=== PATIENT | male | born 1945 | race Caucasian/White ===

== ENCOUNTER 2022-07-17 10:15 | Outpatient (REF) | payer MEDICARE, SELFPAY ==
[2022-07-17 11:55] LABS: Basophils Percent Auto 0.4 % (0.2-2.0); Eosinophils Absolute Auto 0.3 10^3/uL (0.0-0.7); Hematocrit 34.6 % (42.0-54.0); Hemoglobin 11.6 g/dL (14.0-18.0); Immature Granulocytes Abs Auto 0.03 10^3/uL (0.00-0.03); Immature Granulocytes Pct Auto 0.4 % (0.0-0.5); Lymphocytes Absolute Auto 1.6 10^3/uL (1.2-3.8); Lymphocytes Percent Auto 23.3 % (20.5-60.0); Mean Corpuscular HGB Conc 33.5 g/dL (29.9-35.2); Mean Corpuscular Hemoglobin 30.6 pg (25.9-34.0); Mean Corpuscular Volume 91.3 fL (80.0-94.0); Monocytes Absolute Auto 0.7 10^3/uL (0.3-0.8); Monocytes Percent Auto 10.9 % (1.7-12.0); Neutrophils Absolute Auto 4.1 10^3/uL (1.4-6.5); Platelet Count 175 10^3/uL (150-450); Red Blood Count 3.79 10^6/uL (4.70-6.10); Red Cell Distribution Width 13.5 % (11.0-15.0); White Blood Count 6.7 10^3/uL (4.0-11.0)
[2022-07-17 12:26] LABS: Alanine Aminotransferase 14 U/L (16-63); Albumin Globulin Ratio 0.8; Albumin Level 2.6 g/dL (3.4-5.0); Alkaline Phosphatase 64 U/L (46-116); Anion Gap 10.9; Aspartate Amino Transferase 16 U/L (15-37); Bilirubin Total 0.4 mg/dL (0.2-1.0); Calcium 8.3 mg/dL (8.5-10.1); Chloride 102 mmol/L (98-107); Estimated GFR (African America 54 (>=60); Estimated GFR (Non-African Ame 44 (>=60); Globulin 3.2 g/dL; Glucose 273 mg/dL (74-106); Magnesium 1.7 mg/dL (1.8-2.4); Phosphorus 4.2 mg/dL (2.6-4.7); Potassium 3.9 mmol/L (3.5-5.1); Sodium 138 mmol/L (136-145); Total Protein 5.8 g/dL (6.4-8.2)
[2022-07-17 12:58] LABS: INR 3.82; Prothrombin Time 37.5 sec (9.0-11.6)
[2022-07-20 15:08] LABS: Tacrolimus (FK506), Blood 6.7 ng/mL (2.0-20.0)
== END 2022-07-17 10:16 ==
LOC: LAB 10:15
PROVIDERS: PCP Internal Medicine; Visit Provider Internal Medicine
DX: S88.011D Complete traumatic amputation at knee level, right lower leg, subsequent encounter (principal); M86.171 Other acute osteomyelitis, right ankle and foot; A49.02 Methicillin resistant Staphylococcus aureus infection, unspecified site; R13.12 Dysphagia, oropharyngeal phase; R29.3 Abnormal posture; I25.10 Atherosclerotic heart disease of native coronary artery without angina pectoris; E44.0 Moderate protein-calorie malnutrition; E11.3553 Type 2 diabetes mellitus with stable proliferative diabetic retinopathy, bilateral; M62.81 Muscle weakness (generalized); S88 Traumatic amputation of lower leg; C44.622 Squamous cell carcinoma of skin of right upper limb, including shoulder; E78.5 Hyperlipidemia, unspecified; Z94.0 Kidney transplant status; N18.6 End stage renal disease; I73.9 Peripheral vascular disease, unspecified; I48.0 Paroxysmal atrial fibrillation; D64.9 Anemia, unspecified; E66.9 Obesity, unspecified; N40.0 Benign prostatic hyperplasia without lower urinary tract symptoms; Z95.0 Presence of cardiac pacemaker; Z86.718 Personal history of other venous thrombosis and embolism; E11.22 Type 2 diabetes mellitus with diabetic chronic kidney disease; I12.0 Hypertensive chronic kidney disease with stage 5 chronic kidney disease or end stage renal disease
CPT/HCPCS: 36415; 80053; 80197; 83735; 84100; 85025; 85610

== ENCOUNTER 2022-07-20 18:11 | Outpatient (RCR) | payer MEDICARE, OTHER, SELFPAY | END 2022-08-14 23:59 | disposition home or self-care (01) | LOC: MM 18:11 | PROVIDERS: PCP Internal Medicine; Visit Provider Internal Medicine | DX: Z51.81 Encounter for therapeutic drug level monitoring (principal); Z79.01 Long term (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 of anticoagulants; I48.91 Unspecified atrial fibrillation ==

== ENCOUNTER 2022-07-24 00:50 | Outpatient (REF) | payer MEDICARE, OTHER, SELFPAY ==
[2022-07-24 08:42] LABS: Basophils Percent Auto 0.6 % (0.2-2.0); Eosinophils Absolute Auto 0.3 10^3/uL (0.0-0.7); Eosinophils Percent Auto 4.5 % (0.9-7.0); Immature Granulocytes Abs Auto 0.02 10^3/uL (0.00-0.03); Immature Granulocytes Pct Auto 0.3 % (0.0-0.5); Lymphocytes Absolute Auto 2.5 10^3/uL (1.2-3.8); Mean Corpuscular HGB Conc 34.3 g/dL (29.9-35.2); Mean Corpuscular Volume 90.4 fL (80.0-94.0); Mean Platelet Volume 10.5 fL (9.5-13.5); Monocytes Absolute Auto 0.8 10^3/uL (0.3-0.8); Monocytes Percent Auto 11.5 % (1.7-12.0); Neutrophils Percent Auto 45.1 % (43.0-75.0); Platelet Count 197 10^3/uL (150-450); Red Blood Count 3.87 10^6/uL (4.70-6.10); Red Cell Distribution Width 13.4 % (11.0-15.0); White Blood Count 6.6 10^3/uL (4.0-11.0)
[2022-07-24 09:42] LABS: Partial Thromboplastin Time 38.5 sec (22.3-36.2)
[2022-07-24 15:54] LABS: INR 3.26; Prothrombin Time 32.3 sec (9.0-11.6)
[2022-07-27 19:06] LABS: Tacrolimus (FK506), Blood 8.7 ng/mL (2.0-20.0)
== END 2022-07-24 00:51 ==
LOC: LAB 00:50
PROVIDERS: PCP Internal Medicine; Visit Provider Internal Medicine
DX: Z94.0 Kidney transplant status (principal); N18.6 End stage renal disease
CPT/HCPCS: 36415; 80197; 85025; 85610; 85730

== ENCOUNTER 2022-07-31 07:12 | Outpatient (REF) | payer MEDICARE, OTHER, SELFPAY ==
[2022-07-31 08:54] LABS: Basophils Percent Auto 0.5 % (0.2-2.0); Eosinophils Absolute Auto 0.3 10^3/uL (0.0-0.7); Eosinophils Percent Auto 4.7 % (0.9-7.0); Hematocrit 33.8 % (42.0-54.0); Hemoglobin 11.2 g/dL (14.0-18.0); Immature Granulocytes Abs Auto 0.03 10^3/uL (0.00-0.03); Immature Granulocytes Pct Auto 0.5 % (0.0-0.5); Lymphocytes Absolute Auto 1.8 10^3/uL (1.2-3.8); Lymphocytes Percent Auto 30.4 % (20.5-60.0); Mean Corpuscular HGB Conc 33.1 g/dL (29.9-35.2); Mean Corpuscular Hemoglobin 30.7 pg (25.9-34.0); Mean Corpuscular Volume 92.6 fL (80.0-94.0); Mean Platelet Volume 10.3 fL (9.5-13.5); Monocytes Absolute Auto 0.7 10^3/uL (0.3-0.8); Monocytes Percent Auto 11.8 % (1.7-12.0); Neutrophils Absolute Auto 3.1 10^3/uL (1.4-6.5); Neutrophils Percent Auto 52.1 % (43.0-75.0); Platelet Count 189 10^3/uL (150-450); Red Blood Count 3.65 10^6/uL (4.70-6.10); Red Cell Distribution Width 13.4 % (11.0-15.0)
[2022-07-31 09:47] LABS: Alanine Aminotransferase 13 U/L (16-63); Albumin Globulin Ratio 0.8; Albumin Level 2.5 g/dL (3.4-5.0); Alkaline Phosphatase 61 U/L (46-116); Anion Gap 10.4; Aspartate Amino Transferase 24 U/L (15-37); BUN Creatinine Ratio 33.1; Bilirubin Total 0.5 mg/dL (0.2-1.0); Calcium 8.3 mg/dL (8.5-10.1); Carbon Dioxide 25.7 mmol/L (21.0-32.0); Chloride 104 mmol/L (98-107); Estimated GFR (African America >60 (>=60); Estimated GFR (Non-African Ame 55 (>=60); Globulin 3.2 g/dL; Glucose 327 mg/dL (74-106); Potassium 4.1 mmol/L (3.5-5.1); Sodium 136 mmol/L (136-145); Total Protein 5.7 g/dL (6.4-8.2)
[2022-08-03 19:07] LABS: Tacrolimus (FK506), Blood 6.5 ng/mL (2.0-20.0)
== END 2022-07-31 07:13 ==
LOC: LAB 07:12
PROVIDERS: PCP Internal Medicine; Visit Provider Internal Medicine
DX: Z94.9 Transplanted organ and tissue status, unspecified (principal)
CPT/HCPCS: 36415; 80053; 80197; 85025; 85610

== ENCOUNTER 2022-08-07 05:17 | Outpatient (REF) | payer MEDICARE, OTHER, SELFPAY ==
[2022-08-07 10:18] LABS: Basophils Percent Auto 0.6 % (0.2-2.0); Eosinophils Absolute Auto 0.3 10^3/uL (0.0-0.7); Hematocrit 34.9 % (42.0-54.0); Hemoglobin 11.6 g/dL (14.0-18.0); Immature Granulocytes Abs Auto 0.03 10^3/uL (0.00-0.03); Immature Granulocytes Pct Auto 0.5 % (0.0-0.5); Lymphocytes Absolute Auto 2.2 10^3/uL (1.2-3.8); Lymphocytes Percent Auto 34.1 % (20.5-60.0); Mean Corpuscular HGB Conc 33.2 g/dL (29.9-35.2); Mean Corpuscular Hemoglobin 30.9 pg (25.9-34.0); Mean Corpuscular Volume 93.1 fL (80.0-94.0); Monocytes Absolute Auto 0.8 10^3/uL (0.3-0.8); Monocytes Percent Auto 12.5 % (1.7-12.0); Neutrophils Absolute Auto 3.1 10^3/uL (1.4-6.5); Neutrophils Percent Auto 48.3 % (43.0-75.0); Platelet Count 190 10^3/uL (150-450); Red Blood Count 3.75 10^6/uL (4.70-6.10); Red Cell Distribution Width 13.7 % (11.0-15.0); White Blood Count 6.5 10^3/uL (4.0-11.0)
[2022-08-07 10:27] LABS: INR 2.05; Prothrombin Time 20.9 sec (9.0-11.6)
[2022-08-07 12:20] LABS: Alanine Aminotransferase 15 U/L (16-63); Albumin Globulin Ratio 0.8; Albumin Level 2.6 g/dL (3.4-5.0); Alkaline Phosphatase 58 U/L (46-116); Anion Gap 9.6; Aspartate Amino Transferase 19 U/L (15-37); BUN Creatinine Ratio 32.7; Bilirubin Total 0.5 mg/dL (0.2-1.0); Calcium 8.2 mg/dL (8.5-10.1); Carbon Dioxide 30.3 mmol/L (21.0-32.0); Chloride 105 mmol/L (98-107); Estimated GFR (African America 55 (>=60); Estimated GFR (Non-African Ame 45 (>=60); Globulin 3.2 g/dL; Glucose 139 mg/dL (74-106); Magnesium 1.9 mg/dL (1.8-2.4); Phosphorus 4.6 mg/dL (2.6-4.7); Potassium 3.9 mmol/L (3.5-5.1); Sodium 141 mmol/L (136-145); Total Protein 5.8 g/dL (6.4-8.2)
[2022-08-09 15:07] LABS: Tacrolimus (FK506), Blood 13.4 ng/mL (2.0-20.0)
== END 2022-08-07 05:18 | disposition home or self-care (01) ==
LOC: LAB 05:17
PROVIDERS: PCP Internal Medicine; Visit Provider Internal Medicine
DX: I48.91 Unspecified atrial fibrillation (principal); Z94.9 Transplanted organ and tissue status, unspecified
CPT/HCPCS: 36415; 80053; 80197; 83735; 84100; 85025; 85610

== ENCOUNTER 2022-08-14 01:42 | Outpatient (REF) | payer MEDICARE, OTHER, SELFPAY ==
[2022-08-14 10:12] LABS: Basophils Absolute Auto 0.1 10^3/uL (0.0-0.1); Basophils Percent Auto 0.8 % (0.2-2.0); Eosinophils Absolute Auto 0.3 10^3/uL (0.0-0.7); Eosinophils Percent Auto 4.5 % (0.9-7.0); Hematocrit 34.8 % (42.0-54.0); Hemoglobin 11.3 g/dL (14.0-18.0); Immature Granulocytes Abs Auto 0.03 10^3/uL (0.00-0.03); Immature Granulocytes Pct Auto 0.5 % (0.0-0.5); Lymphocytes Absolute Auto 2.3 10^3/uL (1.2-3.8); Lymphocytes Percent Auto 36.9 % (20.5-60.0); Mean Corpuscular HGB Conc 32.5 g/dL (29.9-35.2); Mean Corpuscular Hemoglobin 30.7 pg (25.9-34.0); Mean Corpuscular Volume 94.6 fL (80.0-94.0); Mean Platelet Volume 10.3 fL (9.5-13.5); Monocytes Absolute Auto 0.6 10^3/uL (0.3-0.8); Monocytes Percent Auto 10.3 % (1.7-12.0); Neutrophils Absolute Auto 2.9 10^3/uL (1.4-6.5); Platelet Count 187 10^3/uL (150-450); Red Blood Count 3.68 10^6/uL (4.70-6.10); Red Cell Distribution Width 13.6 % (11.0-15.0); White Blood Count 6.2 10^3/uL (4.0-11.0)
[2022-08-14 10:36] LABS: INR 2.24; Prothrombin Time 22.7 sec (9.0-11.6)
[2022-08-14 11:10] LABS: Alanine Aminotransferase 16 U/L (16-63); Albumin Globulin Ratio 0.8; Albumin Level 2.7 g/dL (3.4-5.0); Alkaline Phosphatase 60 U/L (46-116); Anion Gap 10.7; Aspartate Amino Transferase 20 U/L (15-37); BUN Creatinine Ratio 28.7; Bilirubin Total 0.5 mg/dL (0.2-1.0); Calcium 8.3 mg/dL (8.5-10.1); Carbon Dioxide 27.5 mmol/L (21.0-32.0); Chloride 106 mmol/L (98-107); Estimated GFR (African America 49 (>=60); Estimated GFR (Non-African Ame 40 (>=60); Globulin 3.2 g/dL; Glucose 228 mg/dL (74-106); Potassium 4.2 mmol/L (3.5-5.1); Sodium 140 mmol/L (136-145); Total Protein 5.9 g/dL (6.4-8.2)
[2022-08-17 05:06] LABS: Tacrolimus (FK506), Blood 8.2 ng/mL (2.0-20.0)
== END 2022-08-14 01:43 | disposition home or self-care (01) ==
LOC: LAB 01:42
PROVIDERS: PCP Internal Medicine; Visit Provider Internal Medicine
DX: Z94.0 Kidney transplant status (principal)
CPT/HCPCS: 36415; 80053; 80197; 85025; 85610

== ENCOUNTER 2022-08-20 10:18 | Outpatient (RCR) | payer MEDICARE, OTHER, SELFPAY | END 2022-09-14 16:52 | disposition home or self-care (01) | LOC: MM 10:18 | PROVIDERS: PCP Internal Medicine; Visit Provider Internal Medicine | DX: Z51.81 Encounter for therapeutic drug level monitoring (principal); Z79.01 Long term (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 of anticoagulants; I48.91 Unspecified atrial fibrillation ==

== ENCOUNTER 2022-08-21 02:25 | Outpatient (REF) | payer MEDICARE, OTHER, SELFPAY ==
[2022-08-21 10:51] LABS: Basophils Percent Auto 0.7 % (0.2-2.0); Eosinophils Absolute Auto 0.2 10^3/uL (0.0-0.7); Eosinophils Percent Auto 3.2 % (0.9-7.0); Hemoglobin 11.9 g/dL (14.0-18.0); Immature Granulocytes Abs Auto 0.01 10^3/uL (0.00-0.03); Immature Granulocytes Pct Auto 0.2 % (0.0-0.5); Lymphocytes Absolute Auto 1.9 10^3/uL (1.2-3.8); Lymphocytes Percent Auto 31.7 % (20.5-60.0); Mean Corpuscular HGB Conc 33.1 g/dL (29.9-35.2); Mean Corpuscular Hemoglobin 30.7 pg (25.9-34.0); Mean Corpuscular Volume 92.8 fL (80.0-94.0); Mean Platelet Volume 10.1 fL (9.5-13.5); Monocytes Absolute Auto 0.6 10^3/uL (0.3-0.8); Monocytes Percent Auto 9.3 % (1.7-12.0); Neutrophils Absolute Auto 3.3 10^3/uL (1.4-6.5); Neutrophils Percent Auto 54.9 % (43.0-75.0); Platelet Count 184 10^3/uL (150-450); Red Blood Count 3.88 10^6/uL (4.70-6.10); Red Cell Distribution Width 13.4 % (11.0-15.0)
[2022-08-21 11:05] LABS: INR 2.68; Prothrombin Time 26.9 sec (9.0-11.6)
[2022-08-25 00:07] LABS: Tacrolimus (FK506), Blood 13.1 ng/mL (2.0-20.0)
== END 2022-08-21 02:26 | disposition home or self-care (01) ==
LOC: LAB 02:25
PROVIDERS: PCP Internal Medicine; Visit Provider Internal Medicine
DX: Z94.0 Kidney transplant status (principal)
CPT/HCPCS: 36415; 80197; 85025; 85610

== ENCOUNTER 2022-08-28 01:12 | Outpatient (REF) | payer MEDICARE, OTHER, SELFPAY ==
[2022-08-28 09:06] LABS: Basophils Percent Auto 0.5 % (0.2-2.0); Eosinophils Absolute Auto 0.3 10^3/uL (0.0-0.7); Eosinophils Percent Auto 4.1 % (0.9-7.0); Hemoglobin 11.8 g/dL (14.0-18.0); Immature Granulocytes Abs Auto 0.02 10^3/uL (0.00-0.03); Immature Granulocytes Pct Auto 0.3 % (0.0-0.5); Lymphocytes Absolute Auto 2.5 10^3/uL (1.2-3.8); Lymphocytes Percent Auto 37.2 % (20.5-60.0); Mean Corpuscular HGB Conc 32.8 g/dL (29.9-35.2); Mean Corpuscular Hemoglobin 30.4 pg (25.9-34.0); Mean Corpuscular Volume 92.8 fL (80.0-94.0); Mean Platelet Volume 9.9 fL (9.5-13.5); Monocytes Absolute Auto 0.8 10^3/uL (0.3-0.8); Monocytes Percent Auto 12.3 % (1.7-12.0); Neutrophils Percent Auto 45.6 % (43.0-75.0); Platelet Count 187 10^3/uL (150-450); Red Blood Count 3.88 10^6/uL (4.70-6.10); Red Cell Distribution Width 13.8 % (11.0-15.0); White Blood Count 6.6 10^3/uL (4.0-11.0)
[2022-08-28 09:22] LABS: INR 3.19; Prothrombin Time 31.7 sec (9.0-11.6)
[2022-08-28 10:00] LABS: Alanine Aminotransferase 20 U/L (16-63); Albumin Globulin Ratio 0.8; Albumin Level 2.8 g/dL (3.4-5.0); Alkaline Phosphatase 59 U/L (46-116); Anion Gap 7.9; Aspartate Amino Transferase 19 U/L (15-37); BUN Creatinine Ratio 29.7; Bilirubin Total 0.6 mg/dL (0.2-1.0); Calcium 8.6 mg/dL (8.5-10.1); Carbon Dioxide 29.1 mmol/L (21.0-32.0); Chloride 107 mmol/L (98-107); Estimated GFR (African America 57 (>=60); Estimated GFR (Non-African Ame 47 (>=60); Globulin 3.3 g/dL; Glucose 192 mg/dL (74-106); Sodium 140 mmol/L (136-145); Total Protein 6.1 g/dL (6.4-8.2)
[2022-08-31 03:06] LABS: Tacrolimus (FK506), Blood 8.4 ng/mL (2.0-20.0)
== END 2022-08-28 01:13 | disposition home or self-care (01) ==
LOC: LAB 01:12
PROVIDERS: PCP Internal Medicine; Visit Provider Internal Medicine
DX: Z51.81 Encounter for therapeutic drug level monitoring (principal); Z79.01 Long term (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 of anticoagulants
CPT/HCPCS: 36415; 80053; 80197; 85025; 85610

== ENCOUNTER 2022-09-04 04:10 | Outpatient (REF) | payer MEDICARE, OTHER, SELFPAY ==
[2022-09-04 09:00] LABS: Basophils Percent Auto 0.7 % (0.2-2.0); Eosinophils Absolute Auto 0.2 10^3/uL (0.0-0.7); Eosinophils Percent Auto 3.6 % (0.9-7.0); Hematocrit 34.3 % (42.0-54.0); Hemoglobin 11.3 g/dL (14.0-18.0); Immature Granulocytes Abs Auto 0.02 10^3/uL (0.00-0.03); Immature Granulocytes Pct Auto 0.3 % (0.0-0.5); Lymphocytes Absolute Auto 2.2 10^3/uL (1.2-3.8); Mean Corpuscular HGB Conc 32.9 g/dL (29.9-35.2); Mean Corpuscular Hemoglobin 30.3 pg (25.9-34.0); Mean Platelet Volume 10.1 fL (9.5-13.5); Monocytes Absolute Auto 0.7 10^3/uL (0.3-0.8); Monocytes Percent Auto 11.9 % (1.7-12.0); Neutrophils Absolute Auto 2.9 10^3/uL (1.4-6.5); Neutrophils Percent Auto 47.5 % (43.0-75.0); Platelet Count 203 10^3/uL (150-450); Red Blood Count 3.73 10^6/uL (4.70-6.10); Red Cell Distribution Width 13.6 % (11.0-15.0); White Blood Count 6.1 10^3/uL (4.0-11.0)
[2022-09-04 09:14] LABS: INR 2.46; Prothrombin Time 24.8 sec (9.0-11.6)
[2022-09-04 09:17] LABS: Alanine Aminotransferase 18 U/L (16-63); Albumin Globulin Ratio 0.9; Albumin Level 2.9 g/dL (3.4-5.0); Alkaline Phosphatase 62 U/L (46-116); Anion Gap 12.5; Aspartate Amino Transferase 16 U/L (15-37); BUN Creatinine Ratio 40.5; Bilirubin Total 0.6 mg/dL (0.2-1.0); Calcium 8.5 mg/dL (8.5-10.1); Carbon Dioxide 27.6 mmol/L (21.0-32.0); Chloride 105 mmol/L (98-107); Estimated GFR (African America 52 (>=60); Estimated GFR (Non-African Ame 43 (>=60); Globulin 3.3 g/dL; Glucose 284 mg/dL (74-106); Magnesium 2.1 mg/dL (1.8-2.4); Phosphorus 4.9 mg/dL (2.6-4.7); Potassium 4.1 mmol/L (3.5-5.1); Sodium 141 mmol/L (136-145); Total Protein 6.2 g/dL (6.4-8.2)
[2022-09-07 10:19] LABS: Tacrolimus (FK506), Blood 13.5 ng/mL (2.0-20.0)
== END 2022-09-04 04:11 | disposition home or self-care (01) ==
LOC: LAB 04:10
PROVIDERS: PCP Internal Medicine; Visit Provider Internal Medicine
DX: Z51.81 Encounter for therapeutic drug level monitoring (principal); Z79.01 Long term (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 of anticoagulants; Z94.0 Kidney transplant status
CPT/HCPCS: 36415; 80053; 80197; 83735; 84100; 85025; 85610

== ENCOUNTER 2022-09-09 11:37 | Emergency (ER) | payer MEDICARE, OTHER, SELFPAY ==
[2022-09-09 11:45] VITALS: BP 97/53; PULSE 76; RESP 20; TEMP 36.5; O2SAT 100; O2SAT 97; BMI 44.2
--- NOTE | 2022-09-09 11:56 | ECG_ITS ---
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
--- NOTE | 2022-09-09 12:08 | XR_ITS ---
The [address] [address] Patient Name: ALEX ALMONTE MRN: [id number] date: 1945 Sex: M Assigned Patient Location: ER Current Patient Location: ER Accession/Order Number: [id number] Exam Date: 09/09/2022 12:30 Report Date: 09/09/2022 12:50 At the request of: COLEMAN BRICEÑO Procedure: XR chest 1V EXAMINATION: XR chest 1V HISTORY: generalised weakness COMPARISON: No relevant comparison available. TECHNIQUE: AP portable FINDINGS: LUNGS: No significant pulmonary parenchymal abnormalities. Low lung volumes VASCULATURE: No increased pulmonary vasculature. PLEURA: No pneumothorax, effusion, or pleural thickening. CARDIAC: No cardiomegaly or cardiac silhouette abnormality. MEDIASTINUM: No visible mass or adenopathy. Left pacemaker BONES: No fracture or visible bone lesion. OTHER: Negative. XR/XR chest 1V IMPRESSION: No acute cardiopulmonary process Electronically authenticated by: RICH FERRELL Date: 09/09/2022 12:50
--- NOTE | 2022-09-09 12:29 | ED_ITS ---
HPI - General Adult General Chief complaint: Headache Stated complaint: LOW BLOOD PRESSURE Time Seen by Provider: 09/09/22 11:55 Source: patient Mode of arrival: Wheelchair Limitations: no limitations History of Present Illness HPI narrative: Presenting to us after he was getting evaluated for his pacemaker and he was found to be hypotensive, the patient is a resident of the shelter [facility] he did mention that he did not get out of the bed since yesterday and he is complaining of generalized weakness today as well. The patient is wheelchair-bound denying any abdominal pain nausea or vomiting he is complaining of some headache mostly occipital The patient received all his morning medications this morning No other complaints Related Data Home Medications Medication Instructions Recorded Confirmed aspirin 81 mg tablet,delayed 81 mg PO DAILY 09/09/22 09/09/22 release atorvastatin 40 mg tablet 40 mg PO BEDTIME 09/09/22 09/09/22 famotidine 20 mg tablet 20 mg PO DAILY 09/09/22 09/09/22 insulin glargine 100 unit/mL (3 17 unit subcut .morning 09/09/22 09/09/22 mL) subcutaneous pen (Lantus Solostar U-100 Insulin) torsemide 20 mg tablet 20 mg PO DAILY 09/09/22 09/09/22 warfarin 4 mg tablet 4 mg PO DAILY 09/09/22 09/09/22 Allergies Allergy/AdvReac Type Severity Reaction Status Date / Time pyridostigmine Allergy Unknown Verified 09/09/22 11:54 Review of Systems ROS Status of ROS 10 or more systems reviewed and unremarkable except as noted in history and below [facility] Social History Smoking status: Former smoker Exam Narrative Exam Narrative: Nurses notes and vital signs reviewed and patient is not hypoxic. General: Well-appearing and in no apparent distress. Skin: Warm, dry, no pallor noted. No rash. Head: Normocephalic, atraumatic. Neck: Supple, non-tender. Eye: Pupils are equal, round and EOMI. No scleral icterus. Ears, Nose, Mouth, and Throat: TM are clear, no nasal mucosal hypertrophy. Oral mucosa is moist, no posterior oropharynx erythema, uvula is mid-line Cardiovascular: Regular Rate and Rhythm without murmur, gallop or rub. Respiratory: No accessory muscle use or respiratory distress. Lungs are clear to auscultation, no wheezing, rales or rhonchi Chest Wall: no tenderness Back: No midline thoracic or lumbar vertebral tenderness. 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 Normal bowel sounds. No masses appreciated. No tenderness to palpation. No rebound, guarding, or rigidity noted. Neurological: A&O x4. No cranial nerve dysfunction observed. No truncal ataxia. Moves all extremities. Sensation intact. Psychiatric: Cooperative and interactive. Normal mood and affect. Constitutional Vital Signs, click to edit/add: Last Vital Signs Temp 97.7 F 09/09/22 11:45 Pulse 69 09/09/22 15:15 Resp 16 09/09/22 15:15 BP 122/67 H 09/09/22 15:15 Pulse Ox 98 09/09/22 15:15 O2 Del Method Room Air 09/09/22 15:15 Course Vital Signs Vital signs: Vital Signs Temperature 97.7 F 09/09/22 11:45 Pulse Rate 76 09/09/22 11:45 Respiratory Rate 20 09/09/22 11:45 Blood Pressure 97/53 L 09/09/22 11:45 Pulse Oximetry 100 09/09/22 11:45 Oxygen Delivery Method Room Air 09/09/22 11:45 Temperature 97.7 F 09/09/22 11:45 Pulse Rate 69 09/09/22 15:15 Respiratory Rate 16 09/09/22 15:15 Blood Pressure 122/67 H 09/09/22 15:15 Pulse Oximetry 98 09/09/22 15:15 Oxygen Delivery Method Room Air 09/09/22 15:15 Medical Decision Making [facility] Narrative Medical decision making narrative: The patient EKG showing paced rhythm with a heart rate of [address] elevation can be appreciated multiple nonspecific changes The patient blood pressure was low upon presentation but after 1 L of fluid he responded and he clinically even looks better initially he was mildly pale but then he was flushed after the liter of fluid The patient CT of the head CBC and chemistry showed no acute significant pathology except for mild acute kidney injury The patient troponin also repeated twice was negative and right now the patient's is feeling much better he is not tired or weak anymore The patient will be discharged with recommendation to stop his torsemide for the next few days and resume it after 3 to 4 days The patient is to follow up with primary care physician in next 2-3 days or to return to the emergency department should any of the signs or symptoms worsen or new symptoms develop. The patient agrees with the following Diagnosis and Treatment plan and the patient will be discharged home. Lab Data Labs: Lab Results 09/09/22 09/09/22 09/09/22 Range/Units 12:22 13:45 13:54 WBC 8.5 (4.0-11.0) 10^3/uL RBC 4.00 L (4.70-6.10) 10^6/uL Hgb 12.3 L (14.0-18.0) g/dL Hct 37.5 L (42.0-54.0) % MCV 93.8 (80.0-94.0) fL MCH 30.8 (25.9-34.0) pg MCHC 32.8 (29.9-35.2) g/dL RDW 13.9 (11.0-15.0) % Plt Count 209 (150-450) 10^3/uL MPV 9.9 (9.5-13.5) fL Neut % (Auto) 67.4 (43.0-75.0) % Lymph % (Auto) 18.6 L (20.5-60.0) % Morrison % (Auto) 10.3 (1.7-12.0) % Eos % (Auto) 2.6 (0.9-7.0) % Baso % (Auto) 0.6 (0.2-2.0) % Neut # (Auto) 5.8 (1.4-6.5) 10^3/uL Lymph # (Auto) 1.6 (1.2-3.8) 10^3/uL Morrison # (Auto) 0.9 H (0.3-0.8) 10^3/uL Eos # (Auto) 0.2 (0.0-0.7) 10^3/uL Baso # (Auto) 0.1 (0.0-0.1) 10^3/uL Abs Immat Gran (auto) 0.04 H (0.00-0.03) 10^3/uL Imm/Tot Granulo (auto) 0.5 (0.0-0.5) % PT 27.2 H (9.0-11.6) sec INR 2.72 Sodium 141 (136-145) mmol/L Potassium 4.5 (3.5-5.1) mmol/L Chloride 104 (98-107) mmol/L Carbon Dioxide 28.5 (21.0-32.0) mmol/L Anion Gap 13.0 BUN 53.0 H (7.0-18.0) mg/dL Creatinine 1.87 H (0.70-1.30) mg/dL Est GFR ( Amer) 43 L (>=60) Est GFR (Non-Af Amer) 35 L (>=60) BUN/Creatinine Ratio 28.3 Glucose 199 H (74-106) mg/dL Lactate 1.9 (0.4-2.0) mmol/L Calcium 8.3 L (8.5-10.1) mg/dL Total Bilirubin 0.5 (0.2-1.0) mg/dL AST 18 (15-37) U/L ALT 16 (16-63) U/L Alkaline Phosphatase 63 (46-116) U/L Total Creatine Kinase 47 (39-308) U/L Troponin I High Sens 20.8 19.3 (4.0-76.1) pg/mL Total Protein 6.3 L (6.4-8.2) g/dL Albumin 3.0 L (3.4-5.0) g/dL Globulin 3.3 g/dL Albumin/Globulin Ratio 0.9 Urine Color Lt. yellow (YELLOW) Urine Clarity Clear (CLEAR) Urine pH 6.0 (5.0-9.0) Ur Specific [place] 1.010 (1.005-1.025) Urine Protein Negative (NEG/TRACE) mg/dL Urine Glucose (UA) 100 A (NEGATIVE) mg/dL Urine Ketones Negative (NEGATIVE) mg/dL Urine Occult Blood Trace-i (NEGATIVE) Urine Nitrite Negative (NEGATIVE) Urine Bilirubin Negative (NEGATIVE) Urine Urobilinogen 0.2 (0.2-1.0) EU/dL Ur Leukocyte Esterase Negative (NEGATIVE) Urine RBC 2-5 A (0-2) #/HPF Urine WBC None seen (NONE SEEN) #/HPF Ur Squamous Epith Cells Rare (NONE/RARE) #/LPF Urine Crystals None seen (None Seen) #/HPF Urine Bacteria None seen (NONE SEEN) #/HPF Urine Casts None seen (NONE SEEN) #/LPF Urine Mucus None seen (NONE SEEN) Ur Culture Indicated? No Discharge Plan Discharge Chief Complaint: Headache Clinical Impression: Acute hypotension, Acute kidney injury superimposed on chronic kidney disease, Dehydration Patient Disposition: [facility] Time of Disposition Decision: 14:32 Discharge Location: [facility] Condition: Good Instructions: Dehydration (ED) Additional Instructions: Please hold Toresemide for 3-4 days and then resume accordingly Stand Alone Forms: Portal Instructions Referrals: Devon Gómez DO [Primary Care Provider] - 1 week Discharge Date/Time: 09/09/22 15:51
[2022-09-09] MEDS: 0.9 % SODIUM CHLORIDE 1,000 ML 1000 ML IV (12:34)
[2022-09-09] MEDS: ACETAMINOPHEN 325 MG TABLET 650 MG PO (12:34)
[2022-09-09 12:38] LABS: Basophils Absolute Auto 0.1 10^3/uL (0.0-0.1); Basophils Percent Auto 0.6 % (0.2-2.0); Eosinophils Absolute Auto 0.2 10^3/uL (0.0-0.7); Eosinophils Percent Auto 2.6 % (0.9-7.0); Hematocrit 37.5 % (42.0-54.0); Hemoglobin 12.3 g/dL (14.0-18.0); Immature Granulocytes Abs Auto 0.04 10^3/uL (0.00-0.03); Immature Granulocytes Pct Auto 0.5 % (0.0-0.5); Lymphocytes Absolute Auto 1.6 10^3/uL (1.2-3.8); Lymphocytes Percent Auto 18.6 % (20.5-60.0); Mean Corpuscular HGB Conc 32.8 g/dL (29.9-35.2); Mean Corpuscular Hemoglobin 30.8 pg (25.9-34.0); Mean Corpuscular Volume 93.8 fL (80.0-94.0); Mean Platelet Volume 9.9 fL (9.5-13.5); Monocytes Absolute Auto 0.9 10^3/uL (0.3-0.8); Monocytes Percent Auto 10.3 % (1.7-12.0); Neutrophils Absolute Auto 5.8 10^3/uL (1.4-6.5); Neutrophils Percent Auto 67.4 % (43.0-75.0); Platelet Count 209 10^3/uL (150-450); Red Cell Distribution Width 13.9 % (11.0-15.0); White Blood Count 8.5 10^3/uL (4.0-11.0)
--- NOTE | 2022-09-09 12:38 | CT_ITS ---
The [address] [address] Patient Name: ALEX ALMONTE MRN: [id number] date: 1945 Sex: M Assigned Patient Location: ER Current Patient Location: ER Accession/Order Number: [id number] Exam Date: 09/09/2022 12:50 Report Date: 09/09/2022 13:12 At the request of: COLEMAN BRICEÑO Procedure: CT head/brain wo con CT head/brain wo con, 09/09/2022 12:50 PM EDT INDICATION: Headache COMPARISON: Noncontrast CT of the head 11/23/2021 TECHNIQUE: Axial CT images of the brain from skull base to vertex, including portions of the face and sinuses, were obtained without contrast. Multiplanar reformatted images were generated and reviewed as needed. FINDINGS: Global cortical atrophy. No intracranial mass, hydrocephalus, midline shift or acute hemorrhage. No extra-axial collection. Periventricular and deep white matter microvascular ischemic change. Brothers-white matter differentiation is preserved. The paranasal sinuses and mastoid air cells are clear. Orbits are within normal limits. No acute skull fracture. CT/CT head/brain wo con IMPRESSION: No acute intracranial abnormality. Electronically authenticated by: RAFI FERGUSON Date: 09/09/2022 13:12
[2022-09-09 12:45] VITALS: BP 125/67; PULSE 69; RESP 16; O2SAT 98
[2022-09-09 12:49] LABS: Creatine Kinase 47 U/L (39-308)
[2022-09-09 12:53] LABS: Lactate/Lactic Acid 1.9 mmol/L (0.4-2.0)
[2022-09-09 13:00] VITALS: BP 129/67; PULSE 69; RESP 16; O2SAT 98
[2022-09-09 13:00] LABS: Alanine Aminotransferase 16 U/L (16-63); Albumin Globulin Ratio 0.9; Alkaline Phosphatase 63 U/L (46-116); Aspartate Amino Transferase 18 U/L (15-37); BUN Creatinine Ratio 28.3; Bilirubin Total 0.5 mg/dL (0.2-1.0); Calcium 8.3 mg/dL (8.5-10.1); Carbon Dioxide 28.5 mmol/L (21.0-32.0); Chloride 104 mmol/L (98-107); Estimated GFR (African America 43 (>=60); Estimated GFR (Non-African Ame 35 (>=60); Globulin 3.3 g/dL; Glucose 199 mg/dL (74-106); Potassium 4.5 mmol/L (3.5-5.1); Sodium 141 mmol/L (136-145); Total Protein 6.3 g/dL (6.4-8.2); Troponin I High Sensitivity 20.8 pg/mL (4.0-76.1)
[2022-09-09 13:07] LABS: INR 2.72; Prothrombin Time 27.2 sec (9.0-11.6)
[2022-09-09 13:59] LABS: Bilirubin Urine NEGATIVE (NEGATIVE); Blood Urine TRACE-I (NEGATIVE); Clarity Urine CLEAR (CLEAR); Color Urine LT. YELLOW (YELLOW); Glucose Urine UA 100 mg/dL (NEGATIVE); Ketones Urine NEGATIVE (NEGATIVE); Leukocyte Esterase Urine NEGATIVE (NEGATIVE); Nitrite Urine NEGATIVE (NEGATIVE); Protein Urine NEGATIVE (NEG/TRACE); Urobilinogen Urine 0.2 EU/dL (0.2-1.0)
[2022-09-09 14:00] LABS: Urine Microscopic Indicated YES
[2022-09-09 14:12] LABS: Bacteria Urine NONE SEEN #/HPF (NONE SEEN); Cast Seen? NONE SEEN #/LPF (NONE SEEN); Crystals Seen? None Seen #/HPF (None Seen); Mucus Urine NONE SEEN (NONE SEEN); Squamous Epithelial Cell Urine RARE #/LPF (NONE/RARE); Urine Culture Indicated NO; WBC Urine NONE SEEN #/HPF (NONE SEEN)
[2022-09-09 14:26] LABS: Troponin I High Sensitivity 19.3 pg/mL (4.0-76.1)
[2022-09-09 15:15] VITALS: BP 122/67; PULSE 69; RESP 16; O2SAT 98
== END 2022-09-09 15:51 ==
PROVIDERS: Emergency Provider Emergency Medicine; PCP Internal Medicine
DX: I95.9 Hypotension, unspecified (principal); N17.9 Acute kidney failure, unspecified; E86.0 Dehydration; N18.9 Chronic kidney disease, unspecified; Z95.0 Presence of cardiac pacemaker; Z99.3 Dependence on wheelchair; Z79.82 Long term (current) use of aspirin; Z79.899 Other long term (current) drug therapy; Z79.4 Long term (current) use of insulin; Z79.01 Long term (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 of anticoagulants; Z87.891 Personal history of nicotine dependence; Z89.612 Acquired absence of left leg above knee; Z89.511 Acquired absence of right leg below knee
CPT/HCPCS: 36415; 70450; 71045; 80053; 81001; 82550; 83605; 84484; 85025; 85610; 93005; 99285

== ENCOUNTER 2022-09-11 02:05 | Outpatient (REF) | payer MEDICARE, OTHER, SELFPAY ==
[2022-09-11 07:56] LABS: Basophils Percent Auto 0.6 % (0.2-2.0); Eosinophils Absolute Auto 0.3 10^3/uL (0.0-0.7); Eosinophils Percent Auto 3.9 % (0.9-7.0); Hematocrit 34.1 % (42.0-54.0); Hemoglobin 11.3 g/dL (14.0-18.0); Immature Granulocytes Abs Auto 0.02 10^3/uL (0.00-0.03); Immature Granulocytes Pct Auto 0.3 % (0.0-0.5); Lymphocytes Absolute Auto 2.5 10^3/uL (1.2-3.8); Lymphocytes Percent Auto 37.1 % (20.5-60.0); Mean Corpuscular HGB Conc 33.1 g/dL (29.9-35.2); Mean Corpuscular Hemoglobin 30.6 pg (25.9-34.0); Mean Corpuscular Volume 92.4 fL (80.0-94.0); Mean Platelet Volume 10.1 fL (9.5-13.5); Monocytes Absolute Auto 0.7 10^3/uL (0.3-0.8); Monocytes Percent Auto 10.8 % (1.7-12.0); Neutrophils Absolute Auto 3.2 10^3/uL (1.4-6.5); Neutrophils Percent Auto 47.3 % (43.0-75.0); Platelet Count 178 10^3/uL (150-450); Red Blood Count 3.69 10^6/uL (4.70-6.10); Red Cell Distribution Width 13.9 % (11.0-15.0); White Blood Count 6.7 10^3/uL (4.0-11.0)
[2022-09-11 08:11] LABS: INR 2.99; Prothrombin Time 29.8 sec (9.0-11.6)
[2022-09-11 08:15] LABS: Alanine Aminotransferase 12 U/L (16-63); Albumin Globulin Ratio 0.8; Albumin Level 2.8 g/dL (3.4-5.0); Alkaline Phosphatase 60 U/L (46-116); Anion Gap 9.2; Aspartate Amino Transferase 17 U/L (15-37); BUN Creatinine Ratio 35.9; Bilirubin Total 0.4 mg/dL (0.2-1.0); Calcium 8.2 mg/dL (8.5-10.1); Carbon Dioxide 26.2 mmol/L (21.0-32.0); Chloride 106 mmol/L (98-107); Estimated GFR (African America 53 (>=60); Estimated GFR (Non-African Ame 43 (>=60); Globulin 3.3 g/dL; Glucose 271 mg/dL (74-106); Potassium 4.4 mmol/L (3.5-5.1); Sodium 137 mmol/L (136-145); Total Protein 6.1 g/dL (6.4-8.2)
[2022-09-14 13:07] LABS: Tacrolimus (FK506), Blood 8.2 ng/mL (2.0-20.0)
== END 2022-09-11 02:06 | disposition home or self-care (01) ==
LOC: LAB 02:05
PROVIDERS: PCP Internal Medicine; Visit Provider Internal Medicine
DX: Z94.9 Transplanted organ and tissue status, unspecified (principal); I48.91 Unspecified atrial fibrillation
CPT/HCPCS: 36415; 80053; 80197; 85025; 85610

== ENCOUNTER 2022-09-15 09:07 | Outpatient (RCR) | payer MEDICARE, OTHER, SELFPAY | END 2022-10-15 17:25 | disposition home or self-care (01) | LOC: MM 09:07 | PROVIDERS: PCP Internal Medicine; Visit Provider Internal Medicine | DX: Z51.81 Encounter for therapeutic drug level monitoring (principal); Z79.01 Long term (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 of anticoagulants; I48.91 Unspecified atrial fibrillation ==

== ENCOUNTER 2022-09-18 07:36 | Outpatient (REF) | payer MEDICARE, OTHER, SELFPAY ==
[2022-09-18 09:05] LABS: Basophils Absolute Auto 0.1 10^3/uL (0.0-0.1); Basophils Percent Auto 0.7 % (0.2-2.0); Eosinophils Absolute Auto 0.3 10^3/uL (0.0-0.7); Eosinophils Percent Auto 4.1 % (0.9-7.0); Hematocrit 33.1 % (42.0-54.0); Immature Granulocytes Abs Auto 0.02 10^3/uL (0.00-0.03); Immature Granulocytes Pct Auto 0.3 % (0.0-0.5); Lymphocytes Absolute Auto 2.4 10^3/uL (1.2-3.8); Lymphocytes Percent Auto 33.3 % (20.5-60.0); Mean Corpuscular HGB Conc 33.2 g/dL (29.9-35.2); Mean Corpuscular Hemoglobin 30.8 pg (25.9-34.0); Mean Corpuscular Volume 92.7 fL (80.0-94.0); Mean Platelet Volume 10.4 fL (9.5-13.5); Monocytes Absolute Auto 0.8 10^3/uL (0.3-0.8); Monocytes Percent Auto 10.7 % (1.7-12.0); Neutrophils Absolute Auto 3.7 10^3/uL (1.4-6.5); Neutrophils Percent Auto 50.9 % (43.0-75.0); Platelet Count 178 10^3/uL (150-450); Red Blood Count 3.57 10^6/uL (4.70-6.10); White Blood Count 7.2 10^3/uL (4.0-11.0)
[2022-09-18 09:17] LABS: INR 2.02; Prothrombin Time 20.6 sec (9.0-11.6)
[2022-09-18 10:11] LABS: Alanine Aminotransferase 15 U/L (16-63); Albumin Globulin Ratio 0.9; Albumin Level 2.7 g/dL (3.4-5.0); Alkaline Phosphatase 59 U/L (46-116); Anion Gap 10.8; Aspartate Amino Transferase 18 U/L (15-37); BUN Creatinine Ratio 30.8; Bilirubin Total 0.6 mg/dL (0.2-1.0); Carbon Dioxide 26.6 mmol/L (21.0-32.0); Chloride 105 mmol/L (98-107); Estimated GFR (African America 53 (>=60); Estimated GFR (Non-African Ame 43 (>=60); Glucose 230 mg/dL (74-106); Potassium 4.4 mmol/L (3.5-5.1); Sodium 138 mmol/L (136-145); Total Protein 5.7 g/dL (6.4-8.2)
[2022-09-20 06:37] LABS: Tacrolimus (FK506), Blood 6.9 ng/mL (2.0-20.0)
== END 2022-09-18 07:37 | disposition home or self-care (01) ==
LOC: LAB 07:36
PROVIDERS: PCP Internal Medicine; Visit Provider Internal Medicine
DX: D64.9 Anemia, unspecified (principal); I48.0 Paroxysmal atrial fibrillation; I10 Essential (primary) hypertension
CPT/HCPCS: 36415; 80053; 80197; 85025; 85610

== ENCOUNTER 2022-09-25 01:45 | Outpatient (REF) | payer MEDICARE, OTHER, SELFPAY ==
[2022-09-25 08:30] LABS: Basophils Percent Auto 0.6 % (0.2-2.0); Eosinophils Absolute Auto 0.3 10^3/uL (0.0-0.7); Eosinophils Percent Auto 4.4 % (0.9-7.0); Hematocrit 33.3 % (42.0-54.0); Hemoglobin 11.2 g/dL (14.0-18.0); Immature Granulocytes Abs Auto 0.03 10^3/uL (0.00-0.03); Immature Granulocytes Pct Auto 0.5 % (0.0-0.5); Lymphocytes Absolute Auto 2.3 10^3/uL (1.2-3.8); Lymphocytes Percent Auto 35.3 % (20.5-60.0); Mean Corpuscular HGB Conc 33.6 g/dL (29.9-35.2); Mean Corpuscular Volume 92.2 fL (80.0-94.0); Mean Platelet Volume 10.2 fL (9.5-13.5); Monocytes Absolute Auto 0.7 10^3/uL (0.3-0.8); Monocytes Percent Auto 11.2 % (1.7-12.0); Neutrophils Absolute Auto 3.1 10^3/uL (1.4-6.5); Platelet Count 174 10^3/uL (150-450); Red Blood Count 3.61 10^6/uL (4.70-6.10); Red Cell Distribution Width 13.7 % (11.0-15.0); White Blood Count 6.4 10^3/uL (4.0-11.0)
[2022-09-25 08:41] LABS: INR 2.13; Prothrombin Time 21.6 sec (9.0-11.6)
[2022-09-25 09:18] LABS: Alanine Aminotransferase 14 U/L (16-63); Albumin Globulin Ratio 0.9; Albumin Level 2.8 g/dL (3.4-5.0); Alkaline Phosphatase 62 U/L (46-116); Anion Gap 9.2; Aspartate Amino Transferase 15 U/L (15-37); BUN Creatinine Ratio 33.3; Bilirubin Total 0.4 mg/dL (0.2-1.0); Calcium 8.1 mg/dL (8.5-10.1); Carbon Dioxide 30.8 mmol/L (21.0-32.0); Chloride 105 mmol/L (98-107); Estimated GFR (African America >60 (>=60); Estimated GFR (Non-African Ame 51 (>=60); Globulin 3.2 g/dL; Glucose 206 mg/dL (74-106); Sodium 141 mmol/L (136-145)
[2022-09-28 11:08] LABS: Tacrolimus (FK506), Blood 8.4 ng/mL (2.0-20.0)
== END 2022-09-25 01:46 | disposition home or self-care (01) ==
LOC: LAB 01:45
PROVIDERS: PCP Internal Medicine; Visit Provider Internal Medicine
DX: Z51.81 Encounter for therapeutic drug level monitoring (principal); Z79.01 Long term (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 of anticoagulants; D64.9 Anemia, unspecified; I48.0 Paroxysmal atrial fibrillation; I10 Essential (primary) hypertension
CPT/HCPCS: 36415; 80053; 80197; 85025; 85610

== ENCOUNTER 2022-10-02 02:46 | Outpatient (REF) | payer MEDICARE, OTHER, SELFPAY ==
[2022-10-02 09:18] LABS: Basophils Absolute Auto 0.1 10^3/uL (0.0-0.1); Basophils Percent Auto 0.7 % (0.2-2.0); Eosinophils Absolute Auto 0.2 10^3/uL (0.0-0.7); Eosinophils Percent Auto 3.1 % (0.9-7.0); Hematocrit 34.3 % (42.0-54.0); Immature Granulocytes Abs Auto 0.02 10^3/uL (0.00-0.03); Immature Granulocytes Pct Auto 0.3 % (0.0-0.5); Lymphocytes Absolute Auto 2.5 10^3/uL (1.2-3.8); Lymphocytes Percent Auto 35.4 % (20.5-60.0); Mean Corpuscular HGB Conc 32.1 g/dL (29.9-35.2); Mean Corpuscular Hemoglobin 30.4 pg (25.9-34.0); Mean Corpuscular Volume 94.8 fL (80.0-94.0); Mean Platelet Volume 10.4 fL (9.5-13.5); Monocytes Absolute Auto 0.8 10^3/uL (0.3-0.8); Monocytes Percent Auto 11.3 % (1.7-12.0); Neutrophils Absolute Auto 3.5 10^3/uL (1.4-6.5); Neutrophils Percent Auto 49.2 % (43.0-75.0); Platelet Count 171 10^3/uL (150-450); Red Blood Count 3.62 10^6/uL (4.70-6.10); White Blood Count 7.1 10^3/uL (4.0-11.0)
[2022-10-02 09:36] LABS: Prothrombin Time 23.3 sec (9.0-11.6)
[2022-10-02 10:19] LABS: Calcium 8.4 mg/dL (8.5-10.1); Carbon Dioxide 30.2 mmol/L (21.0-32.0); Chloride 107 mmol/L (98-107); Estimated GFR (African America 59 (>=60); Estimated GFR (Non-African Ame 49 (>=60); Glucose 234 mg/dL (74-106); Potassium 4.2 mmol/L (3.5-5.1); Sodium 141 mmol/L (136-145)
[2022-10-06 00:07] LABS: Tacrolimus (FK506), Blood 11.8 ng/mL (2.0-20.0)
== END 2022-10-02 02:47 | disposition home or self-care (01) ==
LOC: LAB 02:46
PROVIDERS: PCP Internal Medicine; Visit Provider Internal Medicine
DX: D64.9 Anemia, unspecified (principal); I48.0 Paroxysmal atrial fibrillation; I10 Essential (primary) hypertension; Z51.81 Encounter for therapeutic drug level monitoring
CPT/HCPCS: 36415; 80048; 80197; 85025; 85610

== ENCOUNTER 2022-10-09 00:05 | Outpatient (REF) | payer MEDICARE, OTHER, SELFPAY ==
[2022-10-09 11:05] LABS: Basophils Percent Auto 0.4 % (0.2-2.0); Eosinophils Absolute Auto 0.2 10^3/uL (0.0-0.7); Eosinophils Percent Auto 2.6 % (0.9-7.0); Hematocrit 30.4 % (42.0-54.0); Hemoglobin 9.9 g/dL (14.0-18.0); Immature Granulocytes Abs Auto 0.02 10^3/uL (0.00-0.03); Immature Granulocytes Pct Auto 0.3 % (0.0-0.5); Lymphocytes Absolute Auto 1.4 10^3/uL (1.2-3.8); Lymphocytes Percent Auto 20.4 % (20.5-60.0); Mean Corpuscular HGB Conc 32.6 g/dL (29.9-35.2); Mean Corpuscular Hemoglobin 30.7 pg (25.9-34.0); Mean Corpuscular Volume 94.1 fL (80.0-94.0); Mean Platelet Volume 10.4 fL (9.5-13.5); Monocytes Absolute Auto 0.8 10^3/uL (0.3-0.8); Monocytes Percent Auto 11.4 % (1.7-12.0); Neutrophils Absolute Auto 4.5 10^3/uL (1.4-6.5); Neutrophils Percent Auto 64.9 % (43.0-75.0); Platelet Count 184 10^3/uL (150-450); Red Blood Count 3.23 10^6/uL (4.70-6.10); Red Cell Distribution Width 14.1 % (11.0-15.0); White Blood Count 6.9 10^3/uL (4.0-11.0)
[2022-10-09 11:10] LABS: INR 3.86; Prothrombin Time 37.9 sec (9.0-11.6)
[2022-10-09 12:00] LABS: Alanine Aminotransferase 14 U/L (16-63); Albumin Globulin Ratio 0.8; Albumin Level 2.7 g/dL (3.4-5.0); Alkaline Phosphatase 65 U/L (46-116); Anion Gap 12.7; Aspartate Amino Transferase 18 U/L (15-37); BUN Creatinine Ratio 34.8; Bilirubin Total 0.6 mg/dL (0.2-1.0); Calcium 8.5 mg/dL (8.5-10.1); Carbon Dioxide 27.1 mmol/L (21.0-32.0); Chloride 104 mmol/L (98-107); Estimated GFR (African America 51 (>=60); Estimated GFR (Non-African Ame 42 (>=60); Globulin 3.2 g/dL; Glucose 198 mg/dL (74-106); Phosphorus 4.9 mg/dL (2.6-4.7); Potassium 3.8 mmol/L (3.5-5.1); Sodium 140 mmol/L (136-145); Total Protein 5.9 g/dL (6.4-8.2)
[2022-10-12 16:09] LABS: Tacrolimus (FK506), Blood 12.6 ng/mL (2.0-20.0)
== END 2022-10-09 00:06 | disposition home or self-care (01) ==
LOC: LAB 00:05
PROVIDERS: PCP Internal Medicine; Visit Provider Internal Medicine
DX: D64.9 Anemia, unspecified (principal); I48.0 Paroxysmal atrial fibrillation; I10 Essential (primary) hypertension; Z51.81 Encounter for therapeutic drug level monitoring
CPT/HCPCS: 36415; 80053; 80197; 83735; 84100; 85025; 85610

== ENCOUNTER 2022-10-12 09:52 | Outpatient (REF) | payer MEDICARE, OTHER, SELFPAY ==
[2022-10-12 11:55] LABS: Magnesium 1.8 mg/dL (1.8-2.4); Phosphorus 3.9 mg/dL (2.6-4.7)
== END 2022-10-12 09:53 | disposition home or self-care (01) ==
LOC: LAB 09:52
PROVIDERS: PCP Internal Medicine; Visit Provider Internal Medicine
DX: Z94.0 Kidney transplant status (principal)
CPT/HCPCS: 36415; 83735; 84100

== ENCOUNTER 2022-10-16 01:27 | Outpatient (REF) | payer MEDICARE, OTHER, SELFPAY ==
[2022-10-16 10:26] LABS: Alanine Aminotransferase 14 U/L (16-63); Albumin Globulin Ratio 0.7; Albumin Level 2.6 g/dL (3.4-5.0); Alkaline Phosphatase 62 U/L (46-116); Anion Gap 8.5; Aspartate Amino Transferase 17 U/L (15-37); BUN Creatinine Ratio 32.9; Bilirubin Total 0.9 mg/dL (0.2-1.0); Calcium 8.1 mg/dL (8.5-10.1); Carbon Dioxide 27.7 mmol/L (21.0-32.0); Chloride 108 mmol/L (98-107); Estimated GFR (African America 48 (>=60); Estimated GFR (Non-African Ame 39 (>=60); Globulin 3.5 g/dL; Glucose 194 mg/dL (74-106); Potassium 4.2 mmol/L (3.5-5.1); Sodium 140 mmol/L (136-145); Total Protein 6.1 g/dL (6.4-8.2)
[2022-10-16 10:36] LABS: Basophils Percent Auto 0.6 % (0.2-2.0); Eosinophils Absolute Auto 0.3 10^3/uL (0.0-0.7); Eosinophils Percent Auto 4.4 % (0.9-7.0); Hematocrit 29.8 % (42.0-54.0); Hemoglobin 9.7 g/dL (14.0-18.0); Immature Granulocytes Abs Auto 0.03 10^3/uL (0.00-0.03); Immature Granulocytes Pct Auto 0.5 % (0.0-0.5); Lymphocytes Absolute Auto 2.5 10^3/uL (1.2-3.8); Lymphocytes Percent Auto 40.2 % (20.5-60.0); Mean Corpuscular HGB Conc 32.6 g/dL (29.9-35.2); Mean Corpuscular Hemoglobin 30.4 pg (25.9-34.0); Mean Corpuscular Volume 93.4 fL (80.0-94.0); Mean Platelet Volume 10.6 fL (9.5-13.5); Monocytes Absolute Auto 0.6 10^3/uL (0.3-0.8); Monocytes Percent Auto 10.4 % (1.7-12.0); Neutrophils Absolute Auto 2.7 10^3/uL (1.4-6.5); Neutrophils Percent Auto 43.9 % (43.0-75.0); Platelet Count 226 10^3/uL (150-450); Red Blood Count 3.19 10^6/uL (4.70-6.10); Red Cell Distribution Width 14.2 % (11.0-15.0); White Blood Count 6.2 10^3/uL (4.0-11.0)
[2022-10-16 11:06] LABS: INR 2.72; Prothrombin Time 27.2 sec (9.0-11.6)
[2022-10-19 04:12] LABS: Tacrolimus (FK506), Blood 4.5 ng/mL (2.0-20.0)
== END 2022-10-16 01:28 | disposition home or self-care (01) ==
LOC: LAB 01:27
PROVIDERS: PCP Internal Medicine; Visit Provider Internal Medicine
DX: Z51.81 Encounter for therapeutic drug level monitoring (principal); Z79.01 Long term (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 of anticoagulants; Z94.0 Kidney transplant status
CPT/HCPCS: 36415; 80053; 80197; 85025; 85610

== ENCOUNTER 2022-10-16 10:00 | Outpatient (RCR) | payer MEDICARE, OTHER, SELFPAY | END 2022-11-13 16:43 | disposition home or self-care (01) | LOC: MM 10:00 | PROVIDERS: PCP Internal Medicine; Visit Provider Internal Medicine | DX: Z51.81 Encounter for therapeutic drug level monitoring (principal); Z79.01 Long term (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 of anticoagulants; I48.91 Unspecified atrial fibrillation ==

== ENCOUNTER 2022-10-23 05:51 | Outpatient (REF) | payer MEDICARE, OTHER, SELFPAY ==
[2022-10-23 10:15] LABS: Basophils Percent Auto 0.5 % (0.2-2.0); Eosinophils Absolute Auto 0.2 10^3/uL (0.0-0.7); Eosinophils Percent Auto 3.5 % (0.9-7.0); Hematocrit 30.9 % (42.0-54.0); Hemoglobin 10.1 g/dL (14.0-18.0); Immature Granulocytes Abs Auto 0.02 10^3/uL (0.00-0.03); Immature Granulocytes Pct Auto 0.3 % (0.0-0.5); Lymphocytes Absolute Auto 2.1 10^3/uL (1.2-3.8); Lymphocytes Percent Auto 35.1 % (20.5-60.0); Mean Corpuscular HGB Conc 32.7 g/dL (29.9-35.2); Mean Corpuscular Hemoglobin 30.9 pg (25.9-34.0); Mean Corpuscular Volume 94.5 fL (80.0-94.0); Mean Platelet Volume 10.3 fL (9.5-13.5); Monocytes Absolute Auto 0.6 10^3/uL (0.3-0.8); Monocytes Percent Auto 10.2 % (1.7-12.0); Neutrophils Percent Auto 50.4 % (43.0-75.0); Platelet Count 227 10^3/uL (150-450); Red Blood Count 3.27 10^6/uL (4.70-6.10); Red Cell Distribution Width 14.8 % (11.0-15.0)
[2022-10-23 10:20] LABS: INR 2.79; Prothrombin Time 27.9 sec (9.0-11.6)
[2022-10-23 10:26] LABS: Alanine Aminotransferase 13 U/L (16-63); Albumin Globulin Ratio 0.8; Albumin Level 2.6 g/dL (3.4-5.0); Alkaline Phosphatase 63 U/L (46-116); Anion Gap 9.4; Aspartate Amino Transferase 21 U/L (15-37); BUN Creatinine Ratio 28.9; Bilirubin Total 0.7 mg/dL (0.2-1.0); Calcium 8.3 mg/dL (8.5-10.1); Carbon Dioxide 27.6 mmol/L (21.0-32.0); Chloride 107 mmol/L (98-107); Estimated GFR (African America 55 (>=60); Estimated GFR (Non-African Ame 46 (>=60); Globulin 3.2 g/dL; Glucose 78 mg/dL (74-106); Sodium 140 mmol/L (136-145); Total Protein 5.8 g/dL (6.4-8.2)
== END 2022-10-23 05:52 | disposition home or self-care (01) ==
LOC: LAB 05:51
PROVIDERS: PCP Internal Medicine; Visit Provider Internal Medicine
DX: Z51.81 Encounter for therapeutic drug level monitoring (principal); Z79.01 Long term (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 of anticoagulants; Z94.9 Transplanted organ and tissue status, unspecified
CPT/HCPCS: 36415; 80053; 80197; 85025; 85610

== ENCOUNTER 2022-10-30 02:20 | Outpatient (REF) | payer MEDICARE, OTHER, SELFPAY ==
[2022-10-30 09:04] LABS: Basophils Percent Auto 0.5 % (0.2-2.0); Eosinophils Absolute Auto 0.2 10^3/uL (0.0-0.7); Eosinophils Percent Auto 3.8 % (0.9-7.0); Hematocrit 32.6 % (42.0-54.0); Hemoglobin 10.3 g/dL (14.0-18.0); Immature Granulocytes Abs Auto 0.02 10^3/uL (0.00-0.03); Immature Granulocytes Pct Auto 0.3 % (0.0-0.5); Lymphocytes Absolute Auto 2.3 10^3/uL (1.2-3.8); Lymphocytes Percent Auto 39.5 % (20.5-60.0); Mean Corpuscular HGB Conc 31.6 g/dL (29.9-35.2); Mean Corpuscular Hemoglobin 30.7 pg (25.9-34.0); Mean Platelet Volume 10.1 fL (9.5-13.5); Monocytes Absolute Auto 0.6 10^3/uL (0.3-0.8); Monocytes Percent Auto 10.3 % (1.7-12.0); Neutrophils Absolute Auto 2.6 10^3/uL (1.4-6.5); Neutrophils Percent Auto 45.6 % (43.0-75.0); Platelet Count 194 10^3/uL (150-450); Red Blood Count 3.36 10^6/uL (4.70-6.10); Red Cell Distribution Width 14.6 % (11.0-15.0); White Blood Count 5.7 10^3/uL (4.0-11.0)
[2022-10-30 09:27] LABS: INR 2.54; Prothrombin Time 25.5 sec (9.0-11.6)
[2022-10-30 09:35] LABS: Alanine Aminotransferase 13 U/L (16-63); Albumin Globulin Ratio 0.8; Albumin Level 2.8 g/dL (3.4-5.0); Alkaline Phosphatase 62 U/L (46-116); Aspartate Amino Transferase 17 U/L (15-37); BUN Creatinine Ratio 31.7; Bilirubin Total 0.6 mg/dL (0.2-1.0); Calcium 8.4 mg/dL (8.5-10.1); Carbon Dioxide 28.9 mmol/L (21.0-32.0); Chloride 107 mmol/L (98-107); Estimated GFR (African America 58 (>=60); Estimated GFR (Non-African Ame 48 (>=60); Globulin 3.3 g/dL; Glucose 131 mg/dL (74-106); Potassium 3.9 mmol/L (3.5-5.1); Sodium 142 mmol/L (136-145); Total Protein 6.1 g/dL (6.4-8.2)
[2022-11-02 11:09] LABS: Tacrolimus (FK506), Blood 14.2 ng/mL (2.0-20.0)
== END 2022-10-30 02:21 | disposition home or self-care (01) ==
LOC: LAB 02:20
PROVIDERS: PCP Internal Medicine; Visit Provider Internal Medicine
DX: Z51.81 Encounter for therapeutic drug level monitoring (principal); Z79.01 Long term (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 of anticoagulants; Z94.9 Transplanted organ and tissue status, unspecified
CPT/HCPCS: 36415; 80053; 80197; 85025; 85610

== ENCOUNTER 2022-11-06 01:32 | Outpatient (REF) | payer MEDICARE, OTHER, SELFPAY ==
[2022-11-06 09:14] LABS: Basophils Percent Auto 0.6 % (0.2-2.0); Eosinophils Absolute Auto 0.3 10^3/uL (0.0-0.7); Eosinophils Percent Auto 3.8 % (0.9-7.0); Hematocrit 32.8 % (42.0-54.0); Hemoglobin 10.5 g/dL (14.0-18.0); Immature Granulocytes Abs Auto 0.01 10^3/uL (0.00-0.03); Immature Granulocytes Pct Auto 0.1 % (0.0-0.5); Lymphocytes Absolute Auto 2.8 10^3/uL (1.2-3.8); Lymphocytes Percent Auto 41.7 % (20.5-60.0); Mean Corpuscular Hemoglobin 30.9 pg (25.9-34.0); Mean Corpuscular Volume 96.5 fL (80.0-94.0); Mean Platelet Volume 10.5 fL (9.5-13.5); Monocytes Absolute Auto 0.8 10^3/uL (0.3-0.8); Monocytes Percent Auto 11.9 % (1.7-12.0); Neutrophils Absolute Auto 2.8 10^3/uL (1.4-6.5); Neutrophils Percent Auto 41.9 % (43.0-75.0); Platelet Count 161 10^3/uL (150-450); Red Cell Distribution Width 14.2 % (11.0-15.0); White Blood Count 6.8 10^3/uL (4.0-11.0)
[2022-11-06 09:34] LABS: Alanine Aminotransferase 18 U/L (16-63); Albumin Globulin Ratio 0.8; Albumin Level 2.7 g/dL (3.4-5.0); Alkaline Phosphatase 64 U/L (46-116); Aspartate Amino Transferase 20 U/L (15-37); BUN Creatinine Ratio 30.8; Bilirubin Total 0.6 mg/dL (0.2-1.0); Calcium 8.4 mg/dL (8.5-10.1); Carbon Dioxide 28.2 mmol/L (21.0-32.0); Chloride 105 mmol/L (98-107); Estimated GFR (African America >60 (>=60); Estimated GFR (Non-African Ame 52 (>=60); Globulin 3.3 g/dL; Glucose 228 mg/dL (74-106); Magnesium 1.7 mg/dL (1.8-2.4); Phosphorus 3.7 mg/dL (2.6-4.7); Potassium 4.2 mmol/L (3.5-5.1); Sodium 140 mmol/L (136-145)
[2022-11-06 09:42] LABS: Prothrombin Time 24.2 sec (9.0-11.6)
[2022-11-09 06:07] LABS: Tacrolimus (FK506), Blood 15.4 ng/mL (2.0-20.0)
== END 2022-11-06 01:33 | disposition home or self-care (01) ==
LOC: LAB 01:32
PROVIDERS: PCP Internal Medicine; Visit Provider Internal Medicine
DX: Z51.81 Encounter for therapeutic drug level monitoring (principal); Z79.01 Long term (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 of anticoagulants; E44.0 Moderate protein-calorie malnutrition; Z94.9 Transplanted organ and tissue status, unspecified
CPT/HCPCS: 36415; 80053; 80197; 83735; 84100; 85025; 85610

== ENCOUNTER 2022-11-13 04:28 | Outpatient (REF) | payer MEDICARE, OTHER, SELFPAY ==
[2022-11-13 10:15] LABS: Basophils Absolute Auto 0.1 10^3/uL (0.0-0.1); Basophils Percent Auto 0.8 % (0.2-2.0); Eosinophils Absolute Auto 0.2 10^3/uL (0.0-0.7); Eosinophils Percent Auto 3.5 % (0.9-7.0); Hematocrit 34.5 % (42.0-54.0); Hemoglobin 11.1 g/dL (14.0-18.0); Immature Granulocytes Abs Auto 0.02 10^3/uL (0.00-0.03); Immature Granulocytes Pct Auto 0.3 % (0.0-0.5); Lymphocytes Absolute Auto 2.3 10^3/uL (1.2-3.8); Lymphocytes Percent Auto 37.3 % (20.5-60.0); Mean Corpuscular HGB Conc 32.2 g/dL (29.9-35.2); Mean Corpuscular Hemoglobin 30.7 pg (25.9-34.0); Mean Corpuscular Volume 95.3 fL (80.0-94.0); Mean Platelet Volume 10.3 fL (9.5-13.5); Monocytes Absolute Auto 0.6 10^3/uL (0.3-0.8); Monocytes Percent Auto 8.9 % (1.7-12.0); Neutrophils Absolute Auto 3.1 10^3/uL (1.4-6.5); Neutrophils Percent Auto 49.2 % (43.0-75.0); Platelet Count 185 10^3/uL (150-450); Red Blood Count 3.62 10^6/uL (4.70-6.10); White Blood Count 6.2 10^3/uL (4.0-11.0)
[2022-11-13 10:45] LABS: INR 2.51; Prothrombin Time 25.3 sec (9.0-11.6)
[2022-11-13 12:10] LABS: Alanine Aminotransferase 16 U/L (16-63); Albumin Globulin Ratio 0.9; Albumin Level 2.8 g/dL (3.4-5.0); Alkaline Phosphatase 65 U/L (46-116); Anion Gap 11.4; Aspartate Amino Transferase 21 U/L (15-37); BUN Creatinine Ratio 30.2; Bilirubin Total 0.6 mg/dL (0.2-1.0); Calcium 8.5 mg/dL (8.5-10.1); Carbon Dioxide 27.8 mmol/L (21.0-32.0); Chloride 105 mmol/L (98-107); Estimated GFR (African America 55 (>=60); Estimated GFR (Non-African Ame 46 (>=60); Globulin 3.2 g/dL; Glucose 252 mg/dL (74-106); Potassium 4.2 mmol/L (3.5-5.1); Sodium 140 mmol/L (136-145)
== END 2022-11-13 04:29 | disposition home or self-care (01) ==
LOC: LAB 04:28
PROVIDERS: PCP Internal Medicine; Visit Provider Internal Medicine
DX: D64.9 Anemia, unspecified (principal); Z51.81 Encounter for therapeutic drug level monitoring; Z79.899 Other long term (current) drug therapy; I48.0 Paroxysmal atrial fibrillation; I10 Essential (primary) hypertension
CPT/HCPCS: 36415; 80053; 80197; 85025; 85610

== ENCOUNTER 2022-11-16 01:41 | Outpatient (RCR) | payer MEDICARE, OTHER, SELFPAY | END 2022-12-15 17:18 | disposition home or self-care (01) | LOC: MM 01:41 | PROVIDERS: PCP Internal Medicine; Visit Provider Internal Medicine | DX: Z51.81 Encounter for therapeutic drug level monitoring (principal); Z79.01 Long term (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 of anticoagulants; I48.91 Unspecified atrial fibrillation; I82.409 Acute embolism and thrombosis of unspecified deep veins of unspecified lower extremity ==

== ENCOUNTER 2022-11-20 00:55 | Outpatient (REF) | payer MEDICARE, OTHER, SELFPAY ==
[2022-11-20 10:20] LABS: INR 1.52; Prothrombin Time 15.7 sec (9.0-11.6)
[2022-11-20 10:21] LABS: Basophils Absolute Auto 0.1 10^3/uL (0.0-0.1); Basophils Percent Auto 0.7 % (0.2-2.0); Eosinophils Absolute Auto 0.2 10^3/uL (0.0-0.7); Eosinophils Percent Auto 3.2 % (0.9-7.0); Hematocrit 34.5 % (42.0-54.0); Hemoglobin 10.8 g/dL (14.0-18.0); Immature Granulocytes Abs Auto 0.01 10^3/uL (0.00-0.03); Immature Granulocytes Pct Auto 0.1 % (0.0-0.5); Lymphocytes Absolute Auto 2.5 10^3/uL (1.2-3.8); Lymphocytes Percent Auto 36.8 % (20.5-60.0); Mean Corpuscular HGB Conc 31.3 g/dL (29.9-35.2); Mean Corpuscular Hemoglobin 29.9 pg (25.9-34.0); Mean Corpuscular Volume 95.6 fL (80.0-94.0); Mean Platelet Volume 10.4 fL (9.5-13.5); Monocytes Absolute Auto 0.7 10^3/uL (0.3-0.8); Monocytes Percent Auto 10.5 % (1.7-12.0); Neutrophils Absolute Auto 3.3 10^3/uL (1.4-6.5); Neutrophils Percent Auto 48.7 % (43.0-75.0); Platelet Count 204 10^3/uL (150-450); Red Blood Count 3.61 10^6/uL (4.70-6.10); White Blood Count 6.8 10^3/uL (4.0-11.0)
[2022-11-20 10:28] LABS: Alanine Aminotransferase 17 U/L (16-63); Albumin Globulin Ratio 0.9; Albumin Level 2.9 g/dL (3.4-5.0); Alkaline Phosphatase 61 U/L (46-116); Anion Gap 8.7; Aspartate Amino Transferase 16 U/L (15-37); BUN Creatinine Ratio 33.6; Bilirubin Total 0.6 mg/dL (0.2-1.0); Calcium 8.8 mg/dL (8.5-10.1); Carbon Dioxide 28.1 mmol/L (21.0-32.0); Chloride 106 mmol/L (98-107); Estimated GFR (African America >60 (>=60); Estimated GFR (Non-African Ame 50 (>=60); Globulin 3.4 g/dL; Glucose 119 mg/dL (74-106); Potassium 3.8 mmol/L (3.5-5.1); Sodium 139 mmol/L (136-145); Total Protein 6.3 g/dL (6.4-8.2)
== END 2022-11-20 00:56 | disposition home or self-care (01) ==
LOC: LAB 00:55
PROVIDERS: PCP Internal Medicine; Visit Provider Internal Medicine
DX: Z51.81 Encounter for therapeutic drug level monitoring (principal); Z79.01 Long term (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 of anticoagulants; Z94.9 Transplanted organ and tissue status, unspecified
CPT/HCPCS: 36415; 80053; 80197; 85025; 85610

== ENCOUNTER 2022-11-27 06:10 | Outpatient (REF) | payer MEDICARE, OTHER, SELFPAY ==
[2022-11-27 08:36] LABS: Basophils Absolute Auto 0.1 10^3/uL (0.0-0.1); Basophils Percent Auto 0.7 % (0.2-2.0); Eosinophils Absolute Auto 0.3 10^3/uL (0.0-0.7); Eosinophils Percent Auto 3.6 % (0.9-7.0); Hematocrit 33.7 % (42.0-54.0); Immature Granulocytes Abs Auto 0.02 10^3/uL (0.00-0.03); Immature Granulocytes Pct Auto 0.3 % (0.0-0.5); Lymphocytes Absolute Auto 2.9 10^3/uL (1.2-3.8); Lymphocytes Percent Auto 40.2 % (20.5-60.0); Mean Corpuscular HGB Conc 32.6 g/dL (29.9-35.2); Mean Corpuscular Hemoglobin 30.5 pg (25.9-34.0); Mean Corpuscular Volume 93.4 fL (80.0-94.0); Mean Platelet Volume 10.5 fL (9.5-13.5); Monocytes Absolute Auto 0.7 10^3/uL (0.3-0.8); Neutrophils Absolute Auto 3.3 10^3/uL (1.4-6.5); Neutrophils Percent Auto 45.2 % (43.0-75.0); Platelet Count 179 10^3/uL (150-450); Red Blood Count 3.61 10^6/uL (4.70-6.10); Red Cell Distribution Width 13.7 % (11.0-15.0); White Blood Count 7.3 10^3/uL (4.0-11.0)
[2022-11-27 08:43] LABS: INR 2.38
[2022-11-27 09:26] LABS: Alanine Aminotransferase 16 U/L (16-63); Albumin Globulin Ratio 0.8; Albumin Level 2.7 g/dL (3.4-5.0); Alkaline Phosphatase 62 U/L (46-116); Anion Gap 11.4; Aspartate Amino Transferase 20 U/L (15-37); BUN Creatinine Ratio 35.5; Bilirubin Total 0.5 mg/dL (0.2-1.0); Calcium 8.4 mg/dL (8.5-10.1); Carbon Dioxide 29.9 mmol/L (21.0-32.0); Chloride 105 mmol/L (98-107); Estimated GFR (African America >60 (>=60); Estimated GFR (Non-African Ame 50 (>=60); Globulin 3.2 g/dL; Glucose 191 mg/dL (74-106); Potassium 4.3 mmol/L (3.5-5.1); Sodium 142 mmol/L (136-145); Total Protein 5.9 g/dL (6.4-8.2)
[2022-11-30 11:11] LABS: Tacrolimus (FK506), Blood 5.1 ng/mL (2.0-20.0)
== END 2022-11-27 06:11 | disposition home or self-care (01) ==
LOC: LAB 06:10
PROVIDERS: PCP Internal Medicine; Visit Provider Internal Medicine
DX: Z51.81 Encounter for therapeutic drug level monitoring (principal); Z79.01 Long term (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 of anticoagulants; Z94.9 Transplanted organ and tissue status, unspecified
CPT/HCPCS: 36415; 80053; 80197; 85025; 85610

== ENCOUNTER 2022-12-04 01:31 | Outpatient (REF) | payer MEDICARE, OTHER, SELFPAY ==
[2022-12-04 07:52] LABS: Basophils Absolute Auto 0.1 10^3/uL (0.0-0.1); Basophils Percent Auto 0.7 % (0.2-2.0); Eosinophils Absolute Auto 0.2 10^3/uL (0.0-0.7); Eosinophils Percent Auto 3.4 % (0.9-7.0); Hematocrit 33.3 % (42.0-54.0); Hemoglobin 10.7 g/dL (14.0-18.0); Immature Granulocytes Abs Auto 0.01 10^3/uL (0.00-0.03); Immature Granulocytes Pct Auto 0.1 % (0.0-0.5); Lymphocytes Absolute Auto 2.4 10^3/uL (1.2-3.8); Lymphocytes Percent Auto 36.1 % (20.5-60.0); Mean Corpuscular HGB Conc 32.1 g/dL (29.9-35.2); Mean Corpuscular Hemoglobin 29.7 pg (25.9-34.0); Mean Corpuscular Volume 92.5 fL (80.0-94.0); Mean Platelet Volume 10.4 fL (9.5-13.5); Monocytes Absolute Auto 0.7 10^3/uL (0.3-0.8); Monocytes Percent Auto 10.8 % (1.7-12.0); Neutrophils Absolute Auto 3.3 10^3/uL (1.4-6.5); Neutrophils Percent Auto 48.9 % (43.0-75.0); Platelet Count 180 10^3/uL (150-450); Red Cell Distribution Width 13.8 % (11.0-15.0); White Blood Count 6.8 10^3/uL (4.0-11.0)
[2022-12-04 08:06] LABS: INR 2.84; Prothrombin Time 28.4 sec (9.0-11.6)
[2022-12-04 08:27] LABS: Alanine Aminotransferase 16 U/L (16-63); Albumin Globulin Ratio 0.8; Albumin Level 2.7 g/dL (3.4-5.0); Alkaline Phosphatase 60 U/L (46-116); Anion Gap 9.9; Aspartate Amino Transferase 19 U/L (15-37); BUN Creatinine Ratio 37.9; Bilirubin Total 0.6 mg/dL (0.2-1.0); Calcium 8.1 mg/dL (8.5-10.1); Carbon Dioxide 26.9 mmol/L (21.0-32.0); Chloride 107 mmol/L (98-107); Estimated GFR (African America >60 (>=60); Estimated GFR (Non-African Ame 56 (>=60); Globulin 3.2 g/dL; Glucose 113 mg/dL (74-106); Potassium 3.8 mmol/L (3.5-5.1); Sodium 140 mmol/L (136-145); Total Protein 5.9 g/dL (6.4-8.2)
[2022-12-07 14:08] LABS: Tacrolimus (FK506), Blood 6.3 ng/mL (2.0-20.0)
== END 2022-12-04 01:32 | disposition home or self-care (01) ==
LOC: LAB 01:31
PROVIDERS: PCP Internal Medicine; Visit Provider Internal Medicine
DX: D64.9 Anemia, unspecified (principal); I48.0 Paroxysmal atrial fibrillation; I10 Essential (primary) hypertension; Z51.81 Encounter for therapeutic drug level monitoring
CPT/HCPCS: 36415; 80053; 80197; 85025; 85610

== ENCOUNTER 2022-12-11 06:22 | Outpatient (REF) | payer MEDICARE, OTHER, SELFPAY ==
[2022-12-11 09:56] LABS: Alanine Aminotransferase 19 U/L (16-63); Albumin Globulin Ratio 0.8; Albumin Level 2.6 g/dL (3.4-5.0); Alkaline Phosphatase 63 U/L (46-116); Anion Gap 11.4; Aspartate Amino Transferase 24 U/L (15-37); BUN Creatinine Ratio 33.1; Bilirubin Total 0.5 mg/dL (0.2-1.0); Calcium 7.9 mg/dL (8.5-10.1); Carbon Dioxide 26.3 mmol/L (21.0-32.0); Chloride 106 mmol/L (98-107); Estimated GFR (African America >60 (>=60); Estimated GFR (Non-African Ame 53 (>=60); Globulin 3.1 g/dL; Glucose 125 mg/dL (74-106); Magnesium 1.9 mg/dL (1.8-2.4); Phosphorus 3.9 mg/dL (2.6-4.7); Potassium 3.7 mmol/L (3.5-5.1); Sodium 140 mmol/L (136-145); Total Protein 5.7 g/dL (6.4-8.2)
[2022-12-11 10:19] LABS: INR 2.62; Prothrombin Time 26.3 sec (9.0-11.6)
[2022-12-11 11:19] LABS: Basophils Percent Auto 0.6 % (0.2-2.0); Eosinophils Absolute Auto 0.3 10^3/uL (0.0-0.7); Eosinophils Percent Auto 4.4 % (0.9-7.0); Hematocrit 31.3 % (42.0-54.0); Hemoglobin 10.2 g/dL (14.0-18.0); Immature Granulocytes Abs Auto 0.03 10^3/uL (0.00-0.03); Immature Granulocytes Pct Auto 0.5 % (0.0-0.5); Lymphocytes Absolute Auto 2.3 10^3/uL (1.2-3.8); Lymphocytes Percent Auto 35.8 % (20.5-60.0); Mean Corpuscular HGB Conc 32.6 g/dL (29.9-35.2); Mean Corpuscular Hemoglobin 30.2 pg (25.9-34.0); Mean Corpuscular Volume 92.6 fL (80.0-94.0); Mean Platelet Volume 10.8 fL (9.5-13.5); Monocytes Absolute Auto 0.7 10^3/uL (0.3-0.8); Monocytes Percent Auto 11.5 % (1.7-12.0); Neutrophils Percent Auto 47.2 % (43.0-75.0); Platelet Count 181 10^3/uL (150-450); Red Blood Count 3.38 10^6/uL (4.70-6.10); Red Cell Distribution Width 13.8 % (11.0-15.0); White Blood Count 6.4 10^3/uL (4.0-11.0)
== END 2022-12-11 06:23 | disposition home or self-care (01) ==
LOC: LAB 06:22
PROVIDERS: PCP Internal Medicine; Visit Provider Internal Medicine
DX: Z51.81 Encounter for therapeutic drug level monitoring (principal); Z79.01 Long term (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 of anticoagulants
CPT/HCPCS: 36415; 80053; 80197; 83735; 84100; 85025; 85610

== ENCOUNTER 2022-12-16 00:14 | Outpatient (RCR) | payer MEDICARE, OTHER, SELFPAY | END 2023-01-14 16:03 | disposition home or self-care (01) | LOC: MM 00:14 | PROVIDERS: PCP Internal Medicine; Visit Provider Internal Medicine | DX: Z51.81 Encounter for therapeutic drug level monitoring (principal); Z79.01 Long term (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 of anticoagulants; I48.91 Unspecified atrial fibrillation ==

== ENCOUNTER 2022-12-18 00:18 | Outpatient (REF) | payer MEDICARE, OTHER, SELFPAY ==
[2022-12-18 09:36] LABS: Basophils Percent Auto 0.7 % (0.2-2.0); Eosinophils Absolute Auto 0.2 10^3/uL (0.0-0.7); Hematocrit 34.4 % (42.0-54.0); Hemoglobin 10.9 g/dL (14.0-18.0); Immature Granulocytes Abs Auto 0.02 10^3/uL (0.00-0.03); Immature Granulocytes Pct Auto 0.4 % (0.0-0.5); Lymphocytes Absolute Auto 2.4 10^3/uL (1.2-3.8); Mean Corpuscular HGB Conc 31.7 g/dL (29.9-35.2); Mean Corpuscular Hemoglobin 29.5 pg (25.9-34.0); Mean Platelet Volume 10.1 fL (9.5-13.5); Monocytes Absolute Auto 0.6 10^3/uL (0.3-0.8); Neutrophils Absolute Auto 2.3 10^3/uL (1.4-6.5); Neutrophils Percent Auto 40.9 % (43.0-75.0); Platelet Count 186 10^3/uL (150-450); Red Cell Distribution Width 13.7 % (11.0-15.0); White Blood Count 5.6 10^3/uL (4.0-11.0)
[2022-12-18 09:52] LABS: INR 2.66; Prothrombin Time 26.7 sec (9.0-11.6)
[2022-12-18 10:01] LABS: Alanine Aminotransferase 16 U/L (16-63); Albumin Globulin Ratio 0.8; Albumin Level 2.7 g/dL (3.4-5.0); Alkaline Phosphatase 74 U/L (46-116); Anion Gap 10.6; Aspartate Amino Transferase 21 U/L (15-37); BUN Creatinine Ratio 35.7; Bilirubin Total 0.5 mg/dL (0.2-1.0); Calcium 8.2 mg/dL (8.5-10.1); Carbon Dioxide 28.2 mmol/L (21.0-32.0); Chloride 105 mmol/L (98-107); Estimated GFR (African America >60 (>=60); Estimated GFR (Non-African Ame 55 (>=60); Globulin 3.6 g/dL; Glucose 158 mg/dL (74-106); Potassium 3.8 mmol/L (3.5-5.1); Sodium 140 mmol/L (136-145); Total Protein 6.3 g/dL (6.4-8.2)
[2022-12-21 15:11] LABS: Tacrolimus (FK506), Blood 11.2 ng/mL (2.0-20.0)
== END 2022-12-18 00:19 | disposition home or self-care (01) ==
LOC: LAB 00:18
PROVIDERS: PCP Internal Medicine; Visit Provider Internal Medicine
DX: D64.9 Anemia, unspecified (principal); I48.0 Paroxysmal atrial fibrillation; I10 Essential (primary) hypertension; Z51.81 Encounter for therapeutic drug level monitoring; Z79.899 Other long term (current) drug therapy
CPT/HCPCS: 36415; 80053; 80197; 85025; 85610

== ENCOUNTER 2022-12-25 00:40 | Outpatient (REF) | payer MEDICARE, OTHER, SELFPAY ==
[2022-12-25 08:21] LABS: Basophils Percent Auto 0.4 % (0.2-2.0); Eosinophils Absolute Auto 0.2 10^3/uL (0.0-0.7); Eosinophils Percent Auto 3.6 % (0.9-7.0); Hematocrit 33.7 % (42.0-54.0); Hemoglobin 10.7 g/dL (14.0-18.0); Immature Granulocytes Abs Auto 0.01 10^3/uL (0.00-0.03); Immature Granulocytes Pct Auto 0.1 % (0.0-0.5); Lymphocytes Absolute Auto 2.8 10^3/uL (1.2-3.8); Lymphocytes Percent Auto 41.2 % (20.5-60.0); Mean Corpuscular HGB Conc 31.8 g/dL (29.9-35.2); Mean Corpuscular Volume 91.3 fL (80.0-94.0); Mean Platelet Volume 10.6 fL (9.5-13.5); Monocytes Absolute Auto 0.8 10^3/uL (0.3-0.8); Monocytes Percent Auto 11.3 % (1.7-12.0); Neutrophils Absolute Auto 2.9 10^3/uL (1.4-6.5); Neutrophils Percent Auto 43.4 % (43.0-75.0); Platelet Count 201 10^3/uL (150-450); Red Blood Count 3.69 10^6/uL (4.70-6.10); Red Cell Distribution Width 13.4 % (11.0-15.0); White Blood Count 6.7 10^3/uL (4.0-11.0)
[2022-12-25 08:38] LABS: Alanine Aminotransferase 18 U/L (16-63); Albumin Globulin Ratio 0.8; Albumin Level 2.6 g/dL (3.4-5.0); Alkaline Phosphatase 69 U/L (46-116); Aspartate Amino Transferase 19 U/L (15-37); BUN Creatinine Ratio 32.7; Bilirubin Total 0.6 mg/dL (0.2-1.0); Calcium 8.1 mg/dL (8.5-10.1); Carbon Dioxide 28.9 mmol/L (21.0-32.0); Chloride 104 mmol/L (98-107); Estimated GFR (African America 55 (>=60); Estimated GFR (Non-African Ame 45 (>=60); Globulin 3.3 g/dL; Glucose 143 mg/dL (74-106); Potassium 3.9 mmol/L (3.5-5.1); Sodium 139 mmol/L (136-145); Total Protein 5.9 g/dL (6.4-8.2)
[2022-12-25 08:47] LABS: INR 3.36; Prothrombin Time 33.3 sec (9.0-11.6)
[2022-12-29 13:10] LABS: Tacrolimus (FK506), Blood 9.2 ng/mL (2.0-20.0)
== END 2022-12-25 00:41 | disposition home or self-care (01) ==
LOC: LAB 00:40
PROVIDERS: PCP Internal Medicine; Visit Provider Internal Medicine
DX: D64.9 Anemia, unspecified (principal); I48.0 Paroxysmal atrial fibrillation; I10 Essential (primary) hypertension; Z51.81 Encounter for therapeutic drug level monitoring
CPT/HCPCS: 36415; 80053; 80197; 85025; 85610

== ENCOUNTER 2023-01-01 04:41 | Outpatient (REF) | payer MEDICARE, OTHER, SELFPAY ==
[2023-01-01 08:04] LABS: Basophils Percent Auto 0.6 % (0.2-2.0); Eosinophils Absolute Auto 0.3 10^3/uL (0.0-0.7); Eosinophils Percent Auto 5.1 % (0.9-7.0); Hematocrit 32.6 % (42.0-54.0); Hemoglobin 10.6 g/dL (14.0-18.0); Immature Granulocytes Abs Auto 0.02 10^3/uL (0.00-0.03); Immature Granulocytes Pct Auto 0.3 % (0.0-0.5); Lymphocytes Absolute Auto 2.5 10^3/uL (1.2-3.8); Mean Corpuscular HGB Conc 32.5 g/dL (29.9-35.2); Mean Corpuscular Volume 89.1 fL (80.0-94.0); Mean Platelet Volume 10.7 fL (9.5-13.5); Monocytes Absolute Auto 0.7 10^3/uL (0.3-0.8); Monocytes Percent Auto 10.6 % (1.7-12.0); Neutrophils Percent Auto 45.4 % (43.0-75.0); Platelet Count 190 10^3/uL (150-450); Red Blood Count 3.66 10^6/uL (4.70-6.10); Red Cell Distribution Width 13.4 % (11.0-15.0); White Blood Count 6.7 10^3/uL (4.0-11.0)
[2023-01-01 08:21] LABS: INR 2.98; Prothrombin Time 29.7 sec (9.0-11.6)
[2023-01-01 08:32] LABS: Alanine Aminotransferase 20 U/L (16-63); Albumin Globulin Ratio 0.8; Albumin Level 2.7 g/dL (3.4-5.0); Alkaline Phosphatase 69 U/L (46-116); Anion Gap 13.3; Aspartate Amino Transferase 18 U/L (15-37); Bilirubin Total 0.6 mg/dL (0.2-1.0); Calcium 8.3 mg/dL (8.5-10.1); Carbon Dioxide 26.6 mmol/L (21.0-32.0); Chloride 104 mmol/L (98-107); Estimated GFR (African America >60 (>=60); Estimated GFR (Non-African Ame 53 (>=60); Globulin 3.3 g/dL; Glucose 187 mg/dL (74-106); Potassium 3.9 mmol/L (3.5-5.1); Sodium 140 mmol/L (136-145)
[2023-01-05 19:08] LABS: Tacrolimus (FK506), Blood 6.5 ng/mL (2.0-20.0)
== END 2023-01-01 04:42 | disposition home or self-care (01) ==
LOC: LAB 04:41
PROVIDERS: PCP Internal Medicine; Visit Provider Internal Medicine
DX: Z94.9 Transplanted organ and tissue status, unspecified (principal); Z51.81 Encounter for therapeutic drug level monitoring; Z79.01 Long term (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 of anticoagulants
CPT/HCPCS: 36415; 80053; 80197; 85025; 85610

== ENCOUNTER 2023-01-06 07:01 | Outpatient (REF) | payer MEDICARE, OTHER, SELFPAY ==
[2023-01-06 08:43] LABS: Basophils Percent Auto 0.6 % (0.2-2.0); Eosinophils Absolute Auto 0.3 10^3/uL (0.0-0.7); Eosinophils Percent Auto 4.2 % (0.9-7.0); Hematocrit 32.7 % (42.0-54.0); Hemoglobin 10.4 g/dL (14.0-18.0); Immature Granulocytes Abs Auto 0.02 10^3/uL (0.00-0.03); Immature Granulocytes Pct Auto 0.3 % (0.0-0.5); Lymphocytes Absolute Auto 2.6 10^3/uL (1.2-3.8); Lymphocytes Percent Auto 36.4 % (20.5-60.0); Mean Corpuscular HGB Conc 31.8 g/dL (29.9-35.2); Mean Corpuscular Hemoglobin 28.7 pg (25.9-34.0); Mean Corpuscular Volume 90.3 fL (80.0-94.0); Mean Platelet Volume 10.7 fL (9.5-13.5); Monocytes Absolute Auto 0.8 10^3/uL (0.3-0.8); Neutrophils Absolute Auto 3.4 10^3/uL (1.4-6.5); Neutrophils Percent Auto 47.5 % (43.0-75.0); Platelet Count 193 10^3/uL (150-450); Red Blood Count 3.62 10^6/uL (4.70-6.10); Red Cell Distribution Width 13.6 % (11.0-15.0); White Blood Count 7.2 10^3/uL (4.0-11.0)
[2023-01-06 09:02] LABS: INR 2.29; Prothrombin Time 23.2 sec (9.0-11.6)
[2023-01-06 10:08] LABS: Alanine Aminotransferase 16 U/L (16-63); Albumin Globulin Ratio 0.8; Albumin Level 2.6 g/dL (3.4-5.0); Alkaline Phosphatase 68 U/L (46-116); Anion Gap 12.5; Aspartate Amino Transferase 18 U/L (15-37); Bilirubin Total 0.5 mg/dL (0.2-1.0); Calcium 8.2 mg/dL (8.5-10.1); Carbon Dioxide 27.5 mmol/L (21.0-32.0); Chloride 105 mmol/L (98-107); Estimated GFR (African America >60 (>=60); Estimated GFR (Non-African Ame 55 (>=60); Globulin 3.3 g/dL; Glucose 151 mg/dL (74-106); Sodium 141 mmol/L (136-145); Total Protein 5.9 g/dL (6.4-8.2)
[2023-01-09 21:06] LABS: Tacrolimus (FK506), Blood 4.1 ng/mL (2.0-20.0)
== END 2023-01-06 07:02 | disposition home or self-care (01) ==
LOC: LAB 07:01
PROVIDERS: PCP Internal Medicine; Visit Provider Internal Medicine
DX: Z51.81 Encounter for therapeutic drug level monitoring (principal); Z79.01 Long term (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 of anticoagulants; Z94.9 Transplanted organ and tissue status, unspecified
CPT/HCPCS: 36415; 80053; 80197; 85025; 85610

== ENCOUNTER 2023-01-15 01:05 | Outpatient (REF) | payer MEDICARE, OTHER, SELFPAY ==
[2023-01-15 08:18] LABS: Basophils Absolute Auto 0.1 10^3/uL (0.0-0.1); Basophils Percent Auto 0.9 % (0.2-2.0); Eosinophils Absolute Auto 0.3 10^3/uL (0.0-0.7); Eosinophils Percent Auto 4.3 % (0.9-7.0); Hematocrit 32.9 % (42.0-54.0); Hemoglobin 10.5 g/dL (14.0-18.0); Immature Granulocytes Abs Auto 0.02 10^3/uL (0.00-0.03); Immature Granulocytes Pct Auto 0.3 % (0.0-0.5); Lymphocytes Absolute Auto 2.6 10^3/uL (1.2-3.8); Lymphocytes Percent Auto 41.5 % (20.5-60.0); Mean Corpuscular HGB Conc 31.9 g/dL (29.9-35.2); Mean Corpuscular Hemoglobin 28.5 pg (25.9-34.0); Mean Corpuscular Volume 89.4 fL (80.0-94.0); Mean Platelet Volume 10.1 fL (9.5-13.5); Monocytes Absolute Auto 0.7 10^3/uL (0.3-0.8); Monocytes Percent Auto 11.1 % (1.7-12.0); Neutrophils Absolute Auto 2.7 10^3/uL (1.4-6.5); Neutrophils Percent Auto 41.9 % (43.0-75.0); Platelet Count 189 10^3/uL (150-450); Red Blood Count 3.68 10^6/uL (4.70-6.10); Red Cell Distribution Width 13.9 % (11.0-15.0); White Blood Count 6.3 10^3/uL (4.0-11.0)
[2023-01-15 08:26] LABS: Anion Gap 8.3; Carbon Dioxide 29.6 mmol/L (21.0-32.0); Chloride 106 mmol/L (98-107); Estimated GFR (African America >60 (>=60); Glucose 130 mg/dL (74-106); Potassium 3.9 mmol/L (3.5-5.1); Sodium 140 mmol/L (136-145)
[2023-01-15 08:27] LABS: Alanine Aminotransferase 20 U/L (16-63); Albumin Globulin Ratio 0.8; Albumin Level 2.7 g/dL (3.4-5.0); Alkaline Phosphatase 65 U/L (46-116); Aspartate Amino Transferase 20 U/L (15-37); BUN Creatinine Ratio 34.4; Bilirubin Total 0.5 mg/dL (0.2-1.0); Calcium 8.3 mg/dL (8.5-10.1); Estimated GFR (Non-African Ame 54 (>=60); Globulin 3.2 g/dL; Total Protein 5.9 g/dL (6.4-8.2)
[2023-01-15 08:35] LABS: Prothrombin Time 22.3 sec (9.0-11.6)
[2023-01-19 14:09] LABS: Tacrolimus (FK506), Blood 7.6 ng/mL (2.0-20.0)
== END 2023-01-15 01:06 | disposition home or self-care (01) ==
LOC: LAB 01:05
PROVIDERS: PCP Internal Medicine; Visit Provider Internal Medicine
DX: Z51.81 Encounter for therapeutic drug level monitoring (principal); Z79.01 Long term (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 of anticoagulants
CPT/HCPCS: 36415; 80053; 80197; 85025; 85610

== ENCOUNTER 2023-01-15 09:41 | Outpatient (RCR) | payer MEDICARE, OTHER, SELFPAY | END 2023-02-12 15:23 | disposition home or self-care (01) | LOC: MM 09:41 | PROVIDERS: PCP Internal Medicine; Visit Provider Internal Medicine | DX: Z51.81 Encounter for therapeutic drug level monitoring (principal); Z79.01 Long term (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 of anticoagulants; I48.91 Unspecified atrial fibrillation ==

== ENCOUNTER 2023-01-22 02:53 | Outpatient (REF) | payer MEDICARE, OTHER, SELFPAY ==
[2023-01-22 08:38] LABS: Basophils Absolute Auto 0.1 10^3/uL (0.0-0.1); Basophils Percent Auto 0.7 % (0.2-2.0); Eosinophils Absolute Auto 0.3 10^3/uL (0.0-0.7); Eosinophils Percent Auto 4.5 % (0.9-7.0); Hematocrit 33.7 % (42.0-54.0); Hemoglobin 10.7 g/dL (14.0-18.0); Immature Granulocytes Abs Auto 0.02 10^3/uL (0.00-0.03); Immature Granulocytes Pct Auto 0.3 % (0.0-0.5); Lymphocytes Absolute Auto 2.7 10^3/uL (1.2-3.8); Lymphocytes Percent Auto 39.4 % (20.5-60.0); Mean Corpuscular HGB Conc 31.8 g/dL (29.9-35.2); Mean Corpuscular Volume 88.2 fL (80.0-94.0); Mean Platelet Volume 10.5 fL (9.5-13.5); Monocytes Absolute Auto 0.8 10^3/uL (0.3-0.8); Monocytes Percent Auto 11.2 % (1.7-12.0); Neutrophils Percent Auto 43.9 % (43.0-75.0); Platelet Count 190 10^3/uL (150-450); Red Blood Count 3.82 10^6/uL (4.70-6.10); Red Cell Distribution Width 13.9 % (11.0-15.0); White Blood Count 6.9 10^3/uL (4.0-11.0)
[2023-01-22 08:40] LABS: INR 2.03; Prothrombin Time 20.7 sec (9.0-11.6)
[2023-01-22 08:48] LABS: Alanine Aminotransferase 21 U/L (16-63); Albumin Globulin Ratio 0.9; Albumin Level 2.8 g/dL (3.4-5.0); Alkaline Phosphatase 66 U/L (46-116); Anion Gap 10.9; Aspartate Amino Transferase 18 U/L (15-37); BUN Creatinine Ratio 32.9; Bilirubin Total 0.5 mg/dL (0.2-1.0); Calcium 8.2 mg/dL (8.5-10.1); Carbon Dioxide 29.1 mmol/L (21.0-32.0); Chloride 106 mmol/L (98-107); Estimated GFR (African America 59 (>=60); Estimated GFR (Non-African Ame 49 (>=60); Globulin 3.2 g/dL; Glucose 137 mg/dL (74-106); Sodium 142 mmol/L (136-145)
[2023-01-25 11:12] LABS: Tacrolimus (FK506), Blood 6.5 ng/mL (2.0-20.0)
== END 2023-01-22 02:54 | disposition home or self-care (01) ==
LOC: LAB 02:53
PROVIDERS: PCP Internal Medicine; Visit Provider Internal Medicine
DX: Z51.81 Encounter for therapeutic drug level monitoring (principal); Z79.01 Long term (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 of anticoagulants
CPT/HCPCS: 36415; 80053; 80197; 85025; 85610

== ENCOUNTER 2023-01-29 02:11 | Outpatient (REF) | payer MEDICARE, OTHER, SELFPAY ==
[2023-01-29 07:30] LABS: Basophils Percent Auto 0.4 % (0.2-2.0); Eosinophils Absolute Auto 0.4 10^3/uL (0.0-0.7); Eosinophils Percent Auto 5.1 % (0.9-7.0); Hematocrit 32.9 % (42.0-54.0); Hemoglobin 10.5 g/dL (14.0-18.0); Immature Granulocytes Abs Auto 0.02 10^3/uL (0.00-0.03); Immature Granulocytes Pct Auto 0.3 % (0.0-0.5); Lymphocytes Absolute Auto 2.5 10^3/uL (1.2-3.8); Lymphocytes Percent Auto 36.6 % (20.5-60.0); Mean Corpuscular HGB Conc 31.9 g/dL (29.9-35.2); Mean Corpuscular Hemoglobin 28.4 pg (25.9-34.0); Mean Corpuscular Volume 88.9 fL (80.0-94.0); Mean Platelet Volume 10.2 fL (9.5-13.5); Monocytes Absolute Auto 0.7 10^3/uL (0.3-0.8); Monocytes Percent Auto 10.1 % (1.7-12.0); Neutrophils Absolute Auto 3.3 10^3/uL (1.4-6.5); Neutrophils Percent Auto 47.5 % (43.0-75.0); Platelet Count 196 10^3/uL (150-450); Red Cell Distribution Width 14.1 % (11.0-15.0); White Blood Count 6.9 10^3/uL (4.0-11.0)
[2023-01-29 07:47] LABS: INR 2.16; Prothrombin Time 21.9 sec (9.0-11.6)
[2023-01-29 09:21] LABS: Alanine Aminotransferase 24 U/L (16-63); Albumin Globulin Ratio 0.8; Albumin Level 2.8 g/dL (3.4-5.0); Alkaline Phosphatase 64 U/L (46-116); Anion Gap 11.5; Aspartate Amino Transferase 22 U/L (15-37); BUN Creatinine Ratio 39.5; Bilirubin Total 0.5 mg/dL (0.2-1.0); Calcium 8.5 mg/dL (8.5-10.1); Carbon Dioxide 27.3 mmol/L (21.0-32.0); Chloride 105 mmol/L (98-107); Estimated GFR (African America >60 (>=60); Estimated GFR (Non-African Ame 54 (>=60); Globulin 3.3 g/dL; Glucose 110 mg/dL (74-106); Potassium 3.8 mmol/L (3.5-5.1); Sodium 140 mmol/L (136-145); Total Protein 6.1 g/dL (6.4-8.2)
[2023-02-01 16:09] LABS: Tacrolimus (FK506), Blood 6.3 ng/mL (2.0-20.0)
== END 2023-01-29 02:12 | disposition home or self-care (01) ==
LOC: LAB 02:11
PROVIDERS: PCP Internal Medicine; Visit Provider Internal Medicine
DX: Z51.81 Encounter for therapeutic drug level monitoring (principal); Z79.01 Long term (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 of anticoagulants
CPT/HCPCS: 36415; 80053; 80197; 85025; 85610

== ENCOUNTER 2023-02-05 03:29 | Outpatient (REF) | payer MEDICARE, OTHER, SELFPAY ==
--- OUTSIDE RECORDS SUMMARY | 2023-02-05 03:34 | XMS_ITS | CCD ---
Author Name Unknown Address [address] [place] [address] Organization [facility] Care Team Providers [facility] Consultant Name Role Phone PROVIDER, UNKNOWN Attending Unavailable PROVIDER, UNKNOWN Admitting Unavailable Lillie DO, Devon García Primary Care Provider Lillie DO, Devon García Primary Care Provider Lillie DO, Devon E Primary Care Provider Ball DO, Devon García Primary Care Provider Lillie, Devon Unavailable NABEEL, DR PROSPER Douglas Attending Unavailable NABEEL, DR PROSPER Douglas Admitting Unavailable CASTANO ., DR BRANDI García Consulting Unavailable BALL, DR OSORIO Primary Care Unavailable CYN, DR TONYA Manzo Consulting Unavailabl e ZIEBMARCO ANTONIO, DR CURRY Carmona Consulting Unavailable NABEEL, DR PROSPER Douglas Consulting Unavailable GRECHSHARON ., ALEJA TORRES Consulting Unavailabl e MARKER ., DR WASHINGTON Consulting Unavailable KANCHAN ., MARY ANN Consulting Unavailable BACHRACHKARTHIK Consulting Unavailable PHOENIX, ASHLEY Cortes Admitting Unavailable PHOENIX, ASHLEY Cortes Attending Unavailable MARIAELENA, DR RICH Hernandez Consulting Unavailable LILLIE, DR OSORIO Primary Care Unavailable ASHLEY GARIBAY Consulting Unavailable BALL, DR OSORIO Primary Care Unavailable BROTHERS, BRANDI Attending Unavailable BROTHERS, BRANDI Admitting Unavailable BROTHERS, BRANDI Consulting Unavailable BALL, DR OSORIO Consulting Unavailable BALL, DR OSORIO Attending Unavailable BALL, DR OSORIO Admitting Unavailable BALL, DR OSORIO Primary Care Unavailable BALL, DR OSORIO Consulting Unavailable BALL, DR OSORIO Attending Unavailable BALL, DR OSORIO Admitting Unavailable BALL, DR OSORIO Primary Care Unavailable SHAIKH Kate MURRAY Attending Unavailable SHAIKH Kate MURRAY Admitting Unavailable BALL, DR OSORIO Primary Care Unavailable SHAIKH Kate MURRAY Attending Unavailable SHAIKH Kate MURRAY Admitting Unavailable BALL, DR OSORIO Primary Care Unavailable BALL, DR OSORIO Consulting Unavailable BALL, DR OSORIO Attending Unavailable BALL, DR OSORIO Admitting Unavailable BALL, DR OSORIO Primary Care Unavailable BALL, DR OSORIO Primary Care Unavailable BALL, DR OSORIO Consulting Unavailable BALL, DR OSORIO Admitting Unavailable BALL, DR OSORIO Attending Unavailable BALL, DR OSORIO Consulting Unavailable BALL, DR OSORIO Attending Unavailable BALL, DR OSORIO Admitting Unavailable BALL, DR OSORIO Primary Care Unavailable BALL, DR OSORIO Attending Unavailable BALL, DR OSORIO Consulting Unavailable BALL, DR OSORIO Admitting Unavailable BALL, DR OSORIO Primary Care Unavailable HOY ., DR CENTENO Attending Unavailable HOY ., DR CENTENO Admitting Unavailable HOY ., DR CENTENO Consulting Unavailable BALL, DR OSORIO Primary Care Unavailable BALL, DR OSORIO Attending Unavailable BALL, DR OSORIO Consulting Unavailable BALL, DR OSORIO Admitting Unavailable BALL, DR OSORIO Primary Care Unavailable BALL, DR OSORIO Attending Unavailable BALL, DR OSORIO Consulting Unavailable BALL, DR OSORIO Admitting Unavailable BALL, DR OSORIO Primary Care Unavailable BALL, DR OSORIO Attending Unavailable BALL, DR OSORIO Consulting Unavailable BALL, DR OSORIO Admitting Unavailable BALL, DR OSORIO Primary Care Unavailable BALL, DR OSORIO Primary Care Unavailable BALL, DR OSORIO Consulting Unavailable BALL, DR OSORIO Admitting Unavailable BALL, DR OSORIO Attending Unavailable BALL, DR OSORIO Consulting Unavailable BALL, DR OSORIO Attending Unavailable BALL, DR OSORIO Admitting Unavailable BALL, DR OSORIO Primary Care Unavailable FAGGIONATO, ARTUR Attending Unavailable FAGGIONATO, ARTUR Admitting Unavailable BALL, DR OSORIO Primary Care Unavailable FAGGIONATO, ARTUR Consulting Unavailable MISC, DR RYDER Admitting Unavailable MISC, DR RYDER Attending Unavailable BALL, DR OSORIO Primary Care Unavailable BALL, DR OSORIO Primary Care Unavailable BALL, DR OSORIO Consulting Unavailable BALL, DR OSORIO Admitting Unavailable BALL, DR OSORIO Attending Unavailable BALL, DR OSORIO Admitting Unavailable BALL, DR OSORIO Attending Unavailable BALL, DR OSORIO Primary Care Unavailable BALL, DR OSORIO Consulting Unavailable BALL, DR OSORIO Attending Unavailable BALL, DR OSORIO Admitting Unavailable BALL, DR OSORIO Primary Care Unavailable BALL, DR OSORIO Primary Care Unavailable BALL, DR OSORIO Consulting Unavailable BALL, DR OSORIO Admitting Unavailable BALL, DR OSORIO Attending Unavailable BALL, DR OSORIO Consulting Unavailable BALL, DR OSORIO Admitting Unavailable BALL, DR OSORIO Attending Unavailable BALL, DR OSORIO Primary Care Unavailable ZIEBER, DR CURRY Carmona Consulting Unavailable BALL, DR OSORIO Admitting Unavailable BALL, DR OSORIO Primary Care Unavailable BALL, DR OSORIO Consulting Unavailable BALL, DR OSORIO Attending Unavailable ZIEBER, DR CURRY Carmona Consulting Unavailable BALL, DR OSORIO Admitting Unavailable BALL, DR OSORIO Primary Care Unavailable BALL, DR OSORIO Consulting Unavailable BALL, DR OSROIO Attending Unavailable BALL, DR OSORIO Consulting Unavailable BALL, DR OSORIO Attending Unavailable BALL, DR OSORIO Admitting Unavailable BALL, DR OSORIO Primary Care Unavailable MISC, DR RYDER Admitting Unavailable MISC, DR RYDER Consulting Unavailable MISC, DR RYDER Attending Unavailable BALL, DR OSORIO Primary Care Unavailable BALL, DR OSORIO Consulting Unavailable BALL, DR OSORIO Attending Unavailable BALL, DR OSORIO Admitting Unavailable BALL, DR OSORIO Primary Care Unavailable BALL, DR OSORIO Consulting Unavailable BALL, DR OSORIO Attending Unavailable BALL, DR OSORIO Admitting Unavailable BALL, DR OSORIO Primary Care Unavailable BALL, DR OSORIO Attending Unavailable BALL, DR OSORIO Admitting Unavailable BALL, DR OSORIO Primary Care Unavailable FAWWAD, DIAMOND H Admitting Unavailable BALL, DR OSORIO Primary Care Unavailable FAWWAD, DIAMOND H Attending Unavailable FAWWAD, DIAMOND H Attending Unavailable FAWWAD, DIAMOND H Admitting Unavailable BALL, DR OSORIO Primary Care Unavailable FAWWAD, DIAMOND H Admitting Unavailable BALL, DR OSORIO Primary Care Unavailable FAWWAD, DIAMOND H Attending Unavailable FAWWAD, DIAMOND H Admitting Unavailable FAWWAD, DIAMOND H Attending Unavailable BALL, DR OSORIO Primary Care Unavailable FAWWAD, DIAMOND H Admitting Unavailable FAWWAD, DIAMOND H Attending Unavailable BALL, DR OSORIO Primary Care Unavailable BALL, DR OSORIO Consulting Unavailable BALL, DR OSORIO Attending Unavailable BALL, DR OSORIO Admitting Unavailable BALL, DR OSORIO Primary Care Unavailable BALL, DR OSORIO Primary Care Unavailable KATKOWILLIAM Attending Unavailable TODD, WILLIAM Cortes Admitting Unavailable WILLIAM BROOKS Consulting Unavailable RICH TITUS Consulting Unavailable FAWWAD, DIAMOND H Admitting Unavailable FAWWAD, DIAMOND H Attending Unavailable BALL, DR OSORIO Primary Care Unavailable NICOLÁS ., DR CENTENO Consulting Unavailable MARIAELENA, DR RICH Hernandez Consulting Unavailable KRISHNA, DR CURRY Carmona Consulting Unavailable ASHLEY GARIBAY Procedure Practitioner Unava ilable ASHLEY GARIBAY Consulting Unavailable NICOLÁS ., DR CENTENO Procedure Practitioner Unavail able MARCELINO CASTANO Consulting Unavailable NO FLORES Consulting Unavailable KANCHAN ., MARY ANN Consulting Unavailable DARAMOLCYN Douglas Consulting Unavailable ALYSON ., PARAMJIT LUZ Consulting Unavailable BALLCONSTANTIN FRANCO Consulting Unavailable ANNALEE PARADA Consulting Unavailable MISBAH YANES Consulting Unavailable FAWWAD, DIAMOND H Attending Unavailable FAWWAD, DIAMOND H Admitting Unavailable BALL, DR OSORIO Primary Care Unavailable ZIEBER, DR CURRY Carmona Consulting Unavailable HIGHLANDER, ASHLEY Cortes Attending Unavailable HIGHLANDER, ASHLEY Cortes Admitting Unavailable BALL, DR OSORIO Primary Care Unavailable HIGHLANDER, ASHLEY Cortes Consulting Unavailable MISC, DR RYDER Admitting Unavailable MISC, DR RYDER Consulting Unavailable MISC, DR RYDER Attending Unavailable BALL, DR OSORIO Primary Care Unavailable BALL, DR OSORIO Consulting Unavailable BALL, DR OSORIO Attending Unavailable BALL, DR OSORIO Admitting Unavailable BALL, DR OSORIO Primary Care Unavailable BALL, DR OSORIO Consulting Unavailable BALL, DR OSORIO Attending Unavailable BALL, DR OSORIO Admitting Unavailable BALL, DR OSORIO Primary Care Unavailable FAWWAD, DIAMOND H Attending Unavailable FAWWAD, DIAMOND H Admitting Unavailable BALL, DR OSORIO Primary Care Unavailable HIGHLANDER, ASHLEY Cortes Attending Unavailable HIGHLANDER, ASHLEY Cortes Admitting Unavailable BALL, DR OSORIO Primary Care Unavailable BALL, DR OSORIO Attending Unavailable BALL, DR OSORIO Consulting Unavailable BALL, DR OSORIO Admitting Unavailable BALL, DR OSORIO Primary Care Unavailable BALL, DR OSORIO Primary Care Unavailable BALL, DR OSORIO Attending Unavailable BALL, DR OSORIO Admitting Unavailable Ball, DO Osorio Primary Care Provider DAVID Aguilar Attending Provider Sadia Aguilar Attending Unavailable Sadia Aguilar Admitting Unavailable Devon Moreira Primary Care Unavailable SARTHAK PARNELL Attending Unavailable BERNICEMILAGRO Johnson Referring Unavailable BERNICE, MILAGRO Referring Unavailable DEVON MOREIRA Referring Unavailable HINA PETERSON Attending Unavailable DEVON MOREIRA Primary Care Unavailable ARTUR CHEN Referring Unavailable BALL, DEVON García Primary Care Unavailable Allergies Allergy Classification Reported Allergen(s) Allergy Type Date of Onset Reaction(s) Facility (20 sources) Pyridostigmine; Translations: [PYRIDOSTIGMINE BROMIDE] Drug Allergy 2 GI Upset [facility] Work Phone: (1 source) ALLERGIES NOT ON FILE; Translations: [ALLERGIES NOT ON FILE] Propensity to adverse reactions (disorder) [facility] Repository Medications Current Medications Medication Drug Class(es) Dates Sig (Normalized) Sig (Original) atorvastatin 40 mg oral tablet (20 sources) HMG-CoA Reductase Inhibitor Start: 12-30-2021 take 1 tablet by mouth once daily Atorvastatin (Lipitor) 40 mg Tablet Active 40 MG PO Daily December 30, 2021 1:00am Start: 10-01-2021 End: 10-31-2021 take 1 tablet by mouth once daily at bedtime atorvastatin (LIPITOR) 40 mg tablet 1 tablet by ORAL/FEEDING TUBE route daily at bedtime. 30 tablet 0 10/01/2021 Active Start: 10-01-2021 take 1 tablet by debi th once daily at bedtime atorvastatin (LIPITOR) 40 mg tablet 1 tablet by ORAL/FEEDING TUBE route daily at bedtime. 30 tablet 0 10/01/2021 Active Comment on above: 1 tablet by ORAL/FEE DING TUBE route daily at bedtime. Take 40 mg by mouth once daily. cilgavimab 300 mg intramuscular injection (EVUSHELD) (4 sources) Start: 12-05-2021 End: 01-04-2022 cilgavimab 300 mg intramuscular injection (EVUSHELD) FreeStyle Albert 14 Day Sensor - (8 sources) Start: 04-06-2022 Start: 04-06-2022 Start: 04-06-2022 FreeStyle Libr e 14 Day Sensor - Use to test home BS 6x daily in vitro 4-6x daily for 30 days Mar, Active Start: 04-06-2022 FreeStyle Libr e 14 Day Sensor - as directed Mar, Active insulin aspart, human (1 source) Insulin Analog Start: 01-23-2019 inject 1 dose by subcutaneous injection three times daily at mealtime Insulin Aspart U-100 Active 100 sliding scale dose SUBCUT THREE TIMES DAILY WITH MEALS January 23, 2019 1:00am [place] [place] 155-852-130 MG (4 sources) take 155-852 tablets by mouth four times daily take 155-852 tablets by mouth four times daily [place] 155-852-1 30 MG 1 tablet Orally Four times a day Active krill oil (7 sources) Krill Oil Not-Ta jn take 1 capsule by mo uth once daily in the evening krill oil 500 mg cap Take 500 mg by mout h every evening. 0 Active Comment on above: Take 500 mg by mouth every evening. Multivital (4 sources) Multivital Not-T aking oxyCODONE hydrochloride 5 mg oral capsule (18 sources) Opioid Agonist Start: 12-30-2021 take 5 mg by mouth every four hours Oxycodone Active 5 MG PO Q4H December 30, 2021 1:00am Start: 12-11-2021 take 5-10 mg enteral route every three hours as needed oxyCODONE IR (ROXICODONE) 5 mg immediate release tablet 1-2 tablets by ORAL/FEEDING TUBE route every 3 hours as needed. 0 12/11/2021 Active Start: 12-11-2021 take 5-10 mg by mout h every three hours as needed oxyCODONE IR (ROXICODONE) 5 mg immediate release tablet 1-2 tablets by ORAL/FEEDING TUBE route every 3 hours as needed. 0 12/11/2021 Active Comment on above: 1-2 tablets by ORAL/ FEEDING TUBE route every 3 hours as needed. Polyethylene Glycols (9 sources) Polyethylene Gly col - as directed Active take 17 g by mouth once daily as needed polyethylene glycol 3350 (MIRALAX ORAL) Take 17 g by mouth once daily as needed. 0 Active take 17 g by mouth once daily as needed polyethylene glycol 3350 (MIRALAX ORAL) Take 17 g by mouth once daily as needed. 0 Suspended polyethylene gly col 3350 (MIRALAX ORAL) Take by mouth. 0 Active Comment on above: Take by mouth. Take 17 g by mouth o nce daily as needed. potassium chloride 10 meq extended release oral tablet (1 source) Start: 01-20-2022 Potassium Chloride (Klor-Con 10) 10 mEq Tablet Extended Release Active 10 MEQ PO Daily January 20, 2022 1:00am Probiotic (4 sources) Probiotic Not-Ta jn tixagevimab 300 mg intramuscular injection (EVUSHELD) (4 sources) Start: 12-05-2021 End: 01-04-2022 tixagevimab 300 mg intramuscular injection (EVUSHELD) traMADol hydrochloride 50 mg oral tablet (20 sources) Opioid Agonist Start: 10-12-2022 take 1 tablet by mouth three times daily as needed for pain traMADol HCl 50 MG 1 tablet as needed Orally tid as needed for pain for 30 days Sep, Active Start: 03-25-2022 take 1 tablet by debi th twice daily as needed for pain traMADol HCl 50 MG 1 tablet Orally two times daily, prn pain Mar, Active Start: 01-26-2019 End: 12-30-2021 Tramadol Discontinued 50 MG PO every 6 to 8 hours 03 09January 26, 2019 1:00am December 30, 2021 2:30pm Start: 01-23-2019 End: 12-30-2021 take 1 tablet by mouth every twelve hours as needed traMADol (ULTRAM) 50 mg tablet Take 1 tablet by mouth twice daily as needed for pain. 0 04/08/2021 Suspended Comment on above: Take 1 tablet by debi th twice daily as needed for pain. Take 50 mg by mouth every 6 hours as needed for pain. Completed/Discontinued Medications Medication Drug Class(es) Dates Sig (Normalized) Sig (Original) acetaminophen 500 mg oral tablet (11 sources) take 1 tablet by mouth every eight hours as needed acetaminophen (TYLENOL EXTRA STRENGTH) 500 mg tablet Take 500 mg by mouth every 8 hours as needed. 0 Active take 2 tablets by mouth every si x hours as needed for pain Comment on above: Take 500 mg by mouth every 8 hours as needed. albuterol 0.833 mg/ml / ipratropium bromide 0.167 mg/ml inhalation solution (20 sources) Anticholinergic, beta2-Adrenergic Agonist Start: 2 take 3 mL by inhalation every six hours as needed ipratropium-albuter ol (DUONEB) 0.5 mg-3 mg(2.5 mg base)/3 mL nebu Inhale 3 mL as instructed every 6 hours as needed for wheezing/shortness of breath. 0 12/11/2021 Active take 3 mL by inhalation every si x hours as needed Comment on above: Inhale 3 mL as instr ucted every 6 hours as needed for wheezing/shortness of breath. apixaban 5 mg oral tablet (1 source) Factor Xa Inhibitor take 1 tablet by mouth twice daily apixaban (ELIQUIS) 5 mg tab(s) Take 5 mg by mouth twice daily. 0 Suspended Comment on above: Take 5 mg by mouth t wice daily. aspirin 81 mg delayed release oral tablet (20 sources) Platelet Aggregation Inhibitor, Nonsteroidal Anti-inflammatory Drug Start: 2 End: 2 take 1 tablet by mouth once daily aspirin, enteric coated (ASPIRIN, ENTERIC COATED) 81 mg EC tablet Take 1 tablet by mouth once daily. 0 10/01/2021 Active take 1 tablet by debi every twenty-four hours Aspirin 81 MG 1 tablet Orally Once a day Active Comment on above: Take 1 tablet by debi once daily. butenafine hydrochloride 10 mg/ml topical cream (2 sources) Benzylamine Antifungal Start: MENTAX 1 % TOPICAL CREAM as directed 0 03/06/2005 Active Comment on above: as directed clopidogrel 75 mg oral tablet (7 sources) P2Y12 Platelet Inhibitor Start: End: take 75 mg by mouth once daily Clopidogrel Discontinued 75 MG PO Daily January 23, 2019 1:00am December 30, 2021 2:19pm Comment on above: Take 75 mg by mouth once daily. diclofenac sodium 0.01 mg/mg topical gel (3 sources) Nonsteroidal Anti-inflammatory Drug diclofenac (VOLTAREN ) 1 % topical gel Apply to affected area once daily as needed. 0 Active Comment on above: Apply to affected ar ea once daily as needed. docusate sodium 50 mg / sennosides, residential 8.6 mg oral tablet (20 sources) Start: take 1 tablet by mouth twice daily senna-docusate (SENNA-S) 8.6-50 mg per tablet Take 1 tablet by mouth twice daily. 0 12/11/2021 Active Comment on above: Take 1 tablet by debi twice daily. Food Supplement, Lactose-Free (ENSURE MAX PROTEIN) liqd (17 sources) Start: take 237 mL by mouth once daily at breakfast Food Supplement, Lactose-Free (ENSURE MAX PROTEIN) liqd Take 237 mL by mouth daily with breakfast. 7110 mL 0 12/11/2021 Active Comment on above: Take 237 mL by mouth daily with breakfast. furosemide 20 mg oral tablet (10 sources) Loop Diuretic Start: End: take 1 tablet by mouth once daily furosemide (LASIX) 20 mg tablet Take 1 tablet by mouth once daily. 0 09/26/2020 Suspended Comment on above: Take 1 tablet by debi once daily. sodium hypochlorite 2.5 mg/ml topical solution (7 sources) sodium hypochlor ite, Dakin's Half-Strength, (DAKIN'S SOLUTION) external solution Apply 0.5 mL to affected area every evening. 0 Active Comment on above: Apply 0.5 mL to affe cted area every evening. sensor 3 ml insulin glargine 100 unt/ml pen injector (20 sources) Insulin Analog Start: insulin glargine (LANTUS SOLOSTAR, BASAGLAR KWIKPEN) 100 unit/mL (3 mL) Inject 17 Units subcutaneously once daily. 3 mL 0 12/11/2021 Active Start: 12-11-2021 insulin glargi ne (LANTUS SOLOSTAR, BASAGLAR KWIKPEN) 100 unit/mL (3 mL) Inject 17 Units subcutaneously once daily. 3 mL 0 12/11/2021 Active Start: 03-26-2020 inject 16 [IU] by nayak bcutaneous injection once daily insulin glargine (LANTUS) 100 unit/mL injection Indications: Kidney replaced by transplant , 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 Inject 16 Units subcutaneously once daily. 0 03/26/2020 Active Start: 01-23-2019 inject 6 [IU] by sub cutaneous injection once daily Insulin Glargine Active 6 UNITS SUBCUT Daily January 23, 2019 1:00am inject 18 [IU] by nayak bcutaneous injection once daily at bedtime Lantus 100 UNIT/ML 18 units Subcutaneous QHS Active insulin glargine (LANTUS SOLOSTAR, BASAGLAR KWIKPEN) 100 unit/mL (3 mL) Inject 13 Units subcutaneously every morning. 0 Suspended Comment on above: Inject 16 Units subc utaneously once daily. Inject 13 Units subc utaneously every morning. Inject 17 Units subc utaneously once daily. insulin lispro 100 unt/ml injectable solution (20 sources) Insulin Analog Start: inject 6 [IU] by subcutaneous injection three times daily before mealtime as needed, then inject 6 [IU] by subcutaneous injection three times daily at mealtime as needed insulin lispro 100 unit/mL injection Inject 6 Units subcutaneously three times daily before meals. Please give 6 units with meals three times daily plus additional sliding scale below as needed based on accuchecks Correctional Scale 2: For glucose result give insulin dose 111-150 mg/dL: 0 units 151-200 mg/dL: 2 units 201-250 mg/dL: 4 units 251-300 mg/dL: 6 units 301-350 mg/dL: 8 units 351-400 mg/dL: 10 units > 400 mg/dL: Give 10 units and notify provider 0 12/11/2021 Active Start: 04-09-2001 HUMALOG 100U/M L VIAL tid with meals prn 0 04/09/2001 Active HumaLOG 100 UNIT /ML as directed Injection Active inject 5 [IU] by sub cutaneous injection three times daily before mealtime, then inject 8 [IU] by subcutaneous injection before breakfast insulin lispro-aabc (LYUMJEV KWIKPEN U-100 INSULIN) 100 unit/mL insulin pen Inject subcutaneously three times daily before meals. Take 5 units before breakfast and 8 units before lunch and dinner plus sliding scale. 0 Suspended Comment on above: tid with meals prn Humalog U-100 Insuli n 100 unit/mL subcutaneous solution SLIDING SCALE WITH MEALS Inject subcutaneousl y three times daily before meals. Take 5 units before breakfast and 8 units before lunch and dinner plus sliding scale. Inject 6 Units subcu taneously three times daily before meals. Please give 6 units with meals three times daily plus additional sliding scale below as needed based on accuchecks Correctional Scale 2: For glucose result give insulin dose < 110 mg/dL: 0 units 111-150 mg/dL: 0 units 151-200 mg/dL: 2 units 201-250 mg/dL: 4 units 251-300 mg/dL: 6 units 301-350 mg/dL: 8 units 351-400 mg/dL: 10 units > 400 mg/dL: Give 10 units and notify provider latanoprost 0.05 mg/ml ophthalmic solution (17 sources) Prostaglandin Analog Start: 02-25-2022 latanoprost (XALATAN) 0.005 % ophthalmic solution Use in both eyes daily at bedtime. 0 02/25/2022 Active Start: 01-23-2019 take 1 drop(s) into the eye(s) once daily Latanoprost Active 1 DROPS EYE-BOTH Daily January 23, 2019 1:00am Start: 09-23-2007 take 1 drop(s) into the eye(s) once daily at bedtime latanoprost(XALATAN 0.005 % EYE DROPS) Use 1 Drop in both eyes daily at bedtime. 0 09/23/2007 Active Start: 09-23-2007 latanoprost(XA LATAN 0.005 % EYE DROPS) 1 drop each eye 0 09/23/2007 Active take 1 drop(s) into the eye(s) once daily in the evening Comment on above: 1 drop each eye Use 1 Drop in both e yes daily at bedtime. Use in both eyes jhonny ly at bedtime. MULTIVITAMIN TABLET (5 sources) Start: 04-19-2003 MULTIVITAMIN TABLET Take one(1) tablet daily. 0 04/19/2003 Suspended Start: 04-19-2003 MULTIVITAMIN T ABLET Take one(1) tablet daily. 0 04/19/2003 Active Comment on above: Take one(1) tablet d aily. mycophenolate mofetil 250 mg oral capsule (20 sources) Start: 6 End: 2 take 2 capsules by mouth twice daily Mycophenolate Mofetil Discontinued 2 CAP PO Twice daily January 23, 2019 1:00am December 30, 2021 2:20pm Mycophenolate Mo fetil 250 MG Orally Active Comment on above: TAKE 2 CAPSULES BY M OUTH TWICE DAILY. nut.tx.gluc intol,lf,soy-fiber (BOOST GLUCOSE CONTROL) 0.07-0.8 gram-kcal/mL liqd (17 sources) Start: 2 take 237 mL by mouth once daily at dinner nut.tx.gluc intol,lf,soy-fiber (BOOST GLUCOSE CONTROL) 0.07-0.8 gram-kcal/mL liqd Take 237 mL by mouth daily with dinner. 7110 mL 0 12/11/2021 Active Comment on above: Take 237 mL by mouth daily with dinner. OTC NUTRITIONAL SUPPLEMENT (17 sources) Start: 2 take 237 mL by mouth once daily at lunch OTC NUTRITIONAL SUPPLEMENT Take 237 mL by mouth daily with lunch. Magic Cup [place] with lunch 7110 mL 0 12/11/2021 Active Comment on above: Take 237 mL by mouth daily with lunch. Magic Cup [place] with lunch polyethylene glycol 3350 60545 mg powder for oral solution (20 sources) Osmotic Laxative Start: 2 polyethylene glycol 3350 (MIRALAX, GLYCOLAX) 17 gram packet Take 1 Packet by mouth once daily. Dissolve dose in 4 - 8 ounces of liquid and take as directed. 0 12/12/2021 Active MiraLax - as dir ected Orally Not-Taking Comment on above: Take 1 Packet by debi th once daily. Dissolve dose in 4 - 8 ounces of liquid and take as directed. potassium phosphate 155 mg / sodium phosphate, dibasic 852 mg / sodium phosphate, monobasic 130 mg oral tablet (17 sources) Start: 12-11-2021 take 1 tablet by mouth twice daily phosphorus (K PHOS NEUTRAL) 250 mg tablet 1 tablet by ORAL/FEEDING TUBE route twice daily. 0 12/11/2021 Active Start: 12-11-2021 take 1 tablet by debi th twice daily phosphorus (K PHOS NEUTRAL) 250 mg tablet 1 tablet by ORAL/FEEDING TUBE route twice daily. 0 12/11/2021 Active Comment on above: 1 tablet by ORAL/FEE DING TUBE route twice daily. predniSONE 5 mg oral tablet (20 sources) Start: 01-24-20 End: 07-16-19 take 1 tablet by mouth once daily predniSONE (DELTASONE) 5 mg tablet TAKE 1 TABLET BY MOUTH EVERY DAY 90 tablet 3 07/15/2021 Active Comment on above: TAKE 1 TABLET BY DEBI TH EVERY DAY simvastatin 40 mg oral tablet (4 sources) HMG-CoA Reductase Inhibitor Start: 10-29-19 End: 12-31-19 22 take 40 mg by mouth once daily Simvastatin Discontinued 40 MG PO Daily January 23, 2019 1:00am December 30, 2021 2:19pm Comment on above: TAKE 1 TABLET BY DEBI TH DAILY AT BEDTIME. sulfamethoxazole 400 mg / trimethoprim 80 mg oral tablet (20 sources) Dihydrofolate Reductase Inhibitor Antibacterial, Sulfonamide Antimicrobial Start: 12-12-19 take 1 tablet by mouth once sulfamethoxazole-tr imethoprim (SEPTRA) 400-80 mg per tablet Take by mouth. Take one (1) tablet M-W-F 45 tablet 3 12/11/2021 Active Start: 01-23-2019 take 1 tablet by debi th three times weekly Sulfamethoxazole-Trimethoprim Active 1 T AB PO 3 Times a week January 23, 2019 1:00am Wed Start: 08-29-2012 take 1 tablet by debi th once sulfamethoxazole-trimethoprim (SEPTRA) 4 00-80 mg per tablet Take by mouth. Take one (1) tablet -- 45 tablet 3 08/29/2012 Suspended take 1 tablet by [facility] every twenty-four hours Comment on above: Take by mouth. Take one (1) tablet - tacrolimus 1 mg oral capsule (20 sources) Calcineurin Inhibitor Immunosuppressant Start: 09-23-2022 End: 10-16-2022 tacrolimus IR (PROGRAF) 1 mg capsule Take 2 caps in AM (2mg total) and 1 cap in PM (1 mg) 12 hrs apart 90 capsule 11 09/23/2022 10/16/2022 Discontinued Start: 12-12-2021 End: 03-30-2022 take 2 capsules by mouth once daily, then take 6 capsules by mouth in the morning tacrolimus IR (PROGRAF) 1 mg capsule Take 2 capsules by mouth DAILY (6 AM). 60 capsule 11 02/27/2022 03/30/2022 Discontinued Start: 12-11-2021 End: 09-22-2022 take 1 capsule by mouth once daily tacrolimus IR (PROGRAF) 1 mg capsule TAKE 2 CAPSULES BY MOUTH DAILY AT 6AM*Z94.0* 180 capsule 4 03/30/2022 Active Start: 09-25-2020 End: 09-30-2021 tacrolimus IR (PROGRAF) 1 mg capsule TAKE 1 CAPSULE BY MOUTH TWICE A DAY*Z94.0* 60 capsule 11 09/30/2021 Active Start: 01-23-2019 take 1 capsule by mo [facility] twice daily tacrolimus IR (PROGRAF) 1 mg capsule Take 1 capsule by mouth twice daily. 180 capsule 3 10/09/2021 Suspended Comment on above: TAKE 1 CAPSULE BY MO UT TWICE A DAY*Z94.0* Take 1 capsule by mo ut twice daily. Take 2 capsules by m outh DAILY (6 AM). Take 1 capsule by mo uth DAILY AT 6 PM. TAKE 2 CAPSULES BY M OUTH DAILY AT 6AM*Z94.0* TAKE 2 CAPSULES IN M ORNING AND 1 CAPSULE IN THE EVENING TAKE 12 HOURS APART Take 2 caps in AM (2 mg total) and 1 cap in PM (1 mg) 12 hrs apart torsemide 20 mg oral tablet (20 sources) Loop Diuretic Start: 12-13-2021 take 1 tablet by mouth every other day torsemide (DEMADEX) 20 mg tablet Take 1 tablet by mouth every other day. 0 12/13/2021 Active Start: 12-13-2021 take 1 tablet by debi th every other day torsemide (DEMADEX) 20 mg tablet Take 1 tablet by mouth every other day. 0 12/13/2021 Active Torsemide 20 MG as directed Orally Active Comment on above: Take 1 tablet by debi th every other day. vit A/C/E ac/ZnOx/cupric oxide (EYE VITAMIN AND MINERALS ORAL) (5 sources) vit A/C/E ac/ZnO x/cupric oxide (EYE VITAMIN AND MINERALS ORAL) Take by mouth. 0 Suspended vit A/C/E ac/ZnO x/cupric oxide (EYE VITAMIN AND MINERALS ORAL) Take by mouth. 0 Active Comment on above: Take by mouth. warfarin sodium 2 mg oral tablet (20 sources) Vitamin K Antagonist Start: 02-05-2022 warfarin (COUMADIN) 2 mg tablet Take 3 mg Wednesday, Wednesday, Wednesday and Wednesday. Take 2 mg Wednesday, and Wednesday. 0 02/05/2022 Active Start: 12-30-2021 take 1 tablet by debi th three times weekly Warfarin (Coumadin) 1 mg Tablet Active 1 MG PO 3 Times a week December 30, 2021 1:00am Start: 12-11-2021 End: 02-05-2022 take 1 tablet by mouth once Warfarin (Coumadin) 2 mg T ablet Active 2 MG PO every Wednesday, , Wednesday, and Thursday December 30, 2021 1:00am Start: 10-01-2021 End: 10-31-2021 take 1 tablet by mouth once daily warfarin (COUMADIN) 3 mg tablet Take 1 tablet by mouth once daily. 30 tablet 0 10/01/2021 Suspended Coumadin Active Comment on above: Take 1 tablet by debi th once daily. Take 3 mg Wednesday, , Wednesday and Wednesday. Take 2 mg Wednesday, and Wednesday. Problems Active Problems Problem Classification Problem Date Documented Da te Episodic/Chronic Administrative/social admission (2 sources) Reduced mobility; Translations: [Other reduced mobility] 12-30-2021 Episodic Cardiac dysrhythmias (20 sources) Paroxysmal atrial fibrillation; Translations: [Paroxysmal atrial fibrillation] Onset: 2 09-30-2021 Chronic Chronic kidney disease (18 sources) Kidney transplant status; Translations: [End stage renal disease] Onset: 2 Chronic Chronic ulcer of skin (20 sources) Ulcer of lower extremity; Translations: [Non-pressure chronic ulcer of unspecified part of unspecified lower leg with unspecified severity] Onset: 3 06-11-2003 Chronic Conduction disorders (3 sources) Presence of cardiac pacemaker; Translations: [Encounter for adjustment and management of automatic implantable cardiac defibrillator] Onset: 2 Chronic Congestive heart failure; nonhypertensive (1 source) Heart failure, unspecified; Translations: [HEART FAILURE UNSPECIFIED] Onset: 2 Chronic Coronary atherosclerosis and other heart disease (20 sources) Coronary arteriosclerosis; Translations: [Atherosclerotic heart disease of [place] coronary artery without angina pectoris] Onset: 7 09-30-2021 Chronic Deficiency and other anemia (1 source) Anemia, unspecified; Translations: [ANEMIA UNSPECIFIED] Onset: 3 Episodic Diabetes mellitus with complications (20 sources) Type 2 diabetes mellitus with other diabetic kidney complication; Translations: [Diabetes with renal manifestations, type II or unspecified type, uncontrolled] Onset: 3 06-11-2003 Chronic Diabetes mellitus without complication (20 sources) Diabetes mellitus; Translations: [Type 2 diabetes mellitus without complications] Onset: 5 02-10-2021 Chronic Disorders of lipid metabolism (20 sources) Mixed hyperlipidemia; Translations: [Mixed hyperlipidemia] Onset: 9 09-07-2008 Chronic Essential hypertension (20 sources) Hypertensive disorder; Translations: [Essential (primary) hypertension] Onset: 3 09-30-2021 Chronic Hyperplasia of prostate (1 source) Benign prostatic hyperplasia without lower urinary tract symptoms; Translations: [BENIGN PROSTATIC HYPRPLASIA WO LUTS] Onset: 2 Chronic Hypertension with complications and secondary hypertension (2 sources) Hypertensive chronic kidney disease with stage 5 chronic kidney disease or end stage renal disease; Translations: [Hypertensive chronic kidney disease with stage 1 through stage 4 chronic kidney disease, or unspecified chronic kidney disease] Onset: 2 Chronic Immunity disorders (1 source) Immunodeficiency, unspecified; Translations: [IMMUNODEFICIENCY UNSPECIFIED] Onset: 2 Chronic Infective arthritis and osteomyelitis (except that caused by tuberculosis or sexually transmitted disease) (20 sources) Osteomyelitis; Translations: [Osteomyelitis, unspecified] Onset: 2 11-29-2021 Chronic Mycoses (2 sources) Candidiasis; Translations: [Candidiasis, unspecified] 03-03-2022 Episodic Nutritional deficiencies (20 sources) Vitamin D deficiency; Translations: [Vitamin D deficiency, unspecified] Onset: 9 09-07-2008 Chronic Open wounds of extremities (12 sources) Amputated left lower limb above knee; Translations: [Complete traumatic amputation at level between left hip and knee, initial encounter] Onset: 2 Chronic Open wounds of extremities (12 sources) Amputated right lower limb above knee; Translations: [Complete traumatic amputation at level between right hip and knee, initial encounter] Onset: 2 Chronic Other aftercare (1 source) Transplant follow-up; Translations: [Encounter for aftercare following other organ transplant] Chronic Other aftercare (1 source) Encounter for aftercare following other organ transplant; Translations: [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] Onset: 2 Chronic Other aftercare (1 source) Long-term current use of immunosuppressive drug; Translations: [Other medical terminologist (current) drug therapy] Episodic Other aftercare (11 sources) Long-term current use of insulin; Translations: [medical terminologist (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 of insulin] Episodic Other aftercare (10 sources) intermediate (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 of insulin; Translations: [NURSING HOME CURRENT USE OF INSULIN] Onset: 2 Episodic Other aftercare (5 sources) medical terminologist (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 of anticoagulants; Translations: [CHIEF CONTRACT OFFICER CURRNT USE ANTICOAGULANTS] Onset: 3 Episodic Other aftercare (5 sources) Encounter for therapeutic drug level monitoring; Translations: [ENC THERAPEUTC DRUG LEVL MONITORING] Onset: 3 Episodic Other bone disease and musculoskeletal deformities (1 source) History of amputation of right leg through tibia and fibula; Translations: [Acquired absence of right leg below knee] Chronic Other bone disease and musculoskeletal deformities (12 sources) Acquired absence of left leg below knee; Translations: [Acquired absence of left leg below knee] Onset: 2 Chronic Other bone disease and musculoskeletal deformities (1 source) Acquired absence of right leg below knee; Translations: [ACQUIRED ABSENCE RT LEG BELOW KNEE] Onset: 2 Chronic Other bone disease and musculoskeletal deformities (1 source) Acquired absence of left leg above knee; Translations: [ACQUIRED ABSENCE LT LEG ABOVE KNEE] Onset: 2 Chronic Other gastrointestinal disorders (1 source) Incontinence of feces; Translations: [Full incontinence of feces] 01-20-2022 Episodic Other gastrointestinal disorders (1 source) Full incontinence of feces; Translations: [Full incontinence of feces] 07-20-2022 Episodic Other nervous system disorders (4 sources) Phantom pain following amputation of lower limb; Translations: [Phantom limb syndrome with pain] Chronic Other nervous system disorders (1 source) Phantom limb syndrome with pain Chronic Other nutritional; endocrine; and metabolic disorders (19 sources) Obesity; Translations: [Other obesity due to excess calories] Onset: 2 11-29-2021 Chronic Other nutritional; endocrine; and metabolic disorders (1 source) Obesity, unspecified; Translations: [OBESITY UNSPECIFIED] Onset: 2 Chronic Other nutritional; endocrine; and metabolic disorders (2 sources) Obesity caused by energy imbalance; Translations: [Other obesity due to excess calories] Onset: 2 11-29-2021 Chronic Other nutritional; endocrine; and metabolic disorders (1 source) Decrease in appetite; Translations: [Anorexia] 12-30-2021 Episodic Other nutritional; endocrine; and metabolic disorders (1 source) Anorexia; Translations: [Anorexia] 07-20-2022 Episodic Other screening for suspected conditions (not mental disorders or infectious disease) (5 sources) Abnormal coagulation profile; Translations: [Other specified abnormal findings of blood chemistry] Onset: 2 Episodic Peripheral and visceral atherosclerosis (20 sources) Peripheral vascular disease, unspecified; Translations: [Peripheral vascular disease, unspecified] Onset: 2 09-30-2021 Chronic Residual codes; unclassified (1 source) Dependence on wheelchair; Translations: [DEPENDENCE ON WHEELCHAIR] Onset: 2 Chronic Residual codes; unclassified (1 source) At risk for impaired skin integrity ; Translations: [Other specified personal risk factors, not elsewhere classified] 12-30-2021 Episodic Residual codes; unclassified (1 source) Other specified personal risk factors, not elsewhere classified; Translations: [Other specified conditions influencing health status] 07-20-2022 Episodic Unclassified (20 sources) SUMMARY Onset: 5 02-10-2021 Unclassified (5 sources) Chronic atrial fibrillation, unspecified; Translations: [CHRONIC ATRIAL FIBRILLATION UNSPEC] Onset: 3 Unclassified (1 source) CONTACT W/AND (SUSP) EXPOS COVID-19; Translations: [CONTACT W/AND (SUSP) EXPOS COVID-19] Onset: 2 Unclassified (1 source) CHRN KIDNEY DISEASE STG 3 UNSP; Translations: [CHRN KIDNEY DISEASE STG 3 UNSP] Onset: 2 Unclassified (1 source) Pressure ulcer of sacral region, unstageable; Translations: [Pressure ulcer of sacral region, unstageable] Onset: 3 Past or Other Problems Problem Classification Problem Date Documented Da te Episodic/Chronic Acute and unspecified renal failure (20 sources) Acute injury of kidney; Translations: [Acute kidney failure, unspecified] Onset: 01-04-2015 02-10-2021 Episodic Allergic reactions (20 sources) Irritant contact dermatitis; Translations: [Other specified dermatitis] Onset: 12-04-2021 12-04-2021 Episodic Bacterial infection; unspecified site (5 sources) Bacteremia due to Methicillin resistant Staphylococcus aureus; Translations: [Bacteremia] Onset: 01-19-2022 Episodic Coronary atherosclerosis and other heart disease (1 source) Presence of aortocoronary bypass graft; Translations: [PRESENCE AORTOCORONARY BYPASS GRAFT] Onset: 01-19-2022 Episodic E Codes: Adverse effects of medical drugs (1 source) Adverse effect of other drugs, medicaments and biological substances, initial encounter; Translations: [ADVRS EFF OTH RX MED BIO SUBST INIT] Onset: 12-16-2021 Episodic Fluid and electrolyte disorders (6 sources) Hypokalemia; Translations: [Hypo-osmolality and hyponatremia] Onset: 09-30-2021 Episodic Malaise and fatigue (6 sources) Weakness; Translations: [Other fatigue] Onset: 09-18-2021 Episodic Other aftercare (20 sources) Patient encounter status; Translations: [Encounter for long-term (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 of steroids] Onset: 07-30-2006 07-30-2006 Episodic Other aftercare (2 sources) Other halfway (current) drug therapy; Translations: [OTH CHIEF CONTRACT OFFICER CURRENT DRUG THERAPY] Onset: 02-05-2022 Episodic Other aftercare (4 sources) Encounter for orthopedic aftercare following surgical amputation; Translations: [ENC ORTHOPED AFTERCARE FLW SURG AMP] Onset: 02-05-2022 Episodic Other aftercare (4 sources) medical terminologist (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 of antibiotics; Translations: [CHIEF CONTRACT OFFICER CURRENT USE ANTIBIOTICS] Onset: 12-20-2021 Episodic Other aftercare (1 source) medical terminologist (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 of aspirin; Translations: [CHIEF CONTRACT OFFICER CURRENT USE OF ASPIRIN] Onset: 01-19-2022 Episodic Other circulatory disease (4 sources) Other specified symptoms and signs involving the circulatory and respiratory systems; Translations: [OTH SPEC SX SIGNS INVLV CIRC RS] Onset: 11-14-2021 Episodic Other connective tissue disease (1 source) Muscle weakness (generalized); Translations: [MUSCLE WEAKNESS GENERALIZED] Onset: 02-12-2022 Episodic Other connective tissue disease (1 source) Abnormal posture; Translations: [ABNORMAL POSTURE] Onset: 02-12-2022 Episodic Other connective tissue disease (1 source) Necrotizing fasciitis; Translations: [NECROTIZING FASCIITIS] Onset: 01-19-2022 Episodic Other connective tissue disease (4 sources) Pain in right foot; Translations: [PAIN IN RIGHT FOOT] Onset: 11-18-2021 Episodic Other connective tissue disease (1 source) Pain in right leg; Translations: [PAIN IN RIGHT LEG] Onset: 09-30-2021 Episodic Other connective tissue disease (1 source) Other specified soft tissue disorders; Translations: [OTHER SPEC SOFT TISSUE DISORDERS] Onset: 09-30-2021 Episodic Other diseases of veins and lymphatics (1 source) Venous insufficiency (chronic) (peripheral); Translations: [VENOUS INSUFF CHRONIC PERIPHERAL] Onset: 12-03-2021 Episodic Other disorders of stomach and duodenum (1 source) Gastroparesis; Translations: [GASTROPARESIS] Onset: 01-19-2022 Episodic Other gastrointestinal disorders (20 sources) Diarrhea; Translations: [Diarrhea, unspecified] Onset: 01-04-2015 02-10-2021 Episodic Other gastrointestinal disorders (5 sources) Dysphagia, oropharyngeal phase; Translations: [DYSPHAGIA OROPHARYNGEAL PHASE] Onset: 12-25-2021 Episodic Other lower respiratory disease (1 source) Personal history of pneumonia (recurrent); Translations: [PERSONAL HX OF PNEUMONIA RECURRENT] Onset: 12-16-2021 Episodic Other lower respiratory disease (1 source) Shortness of breath; Translations: [SHORTNESS OF BREATH] Onset: 12-16-2021 Episodic Other non-epithelial cancer of skin (1 source) Personal history of other malignant neoplasm of skin; Translations: [PERSONAL HX OTH MALIG NEOPLASM SKIN] Onset: 01-19-2022 Episodic Other nutritional; endocrine; and metabolic disorders (1 source) Body mass index (BMI) 25.0-25.9, adult; Translations: [BODY MASS INDEX BMI 25.0-25.9 ADULT] Onset: 01-19-2022 Episodic Phlebitis; thrombophlebitis and thromboembolism (20 sources) Thromboembolism of vein; Translations: [Acute embolism and thrombosis of unspecified vein] Onset: 09-19-2021 09-30-2021 Episodic Pneumonia (except that caused by tuberculosis or sexually transmitted disease) (1 source) Pneumonia, unspecified organism; Translations: [PNEUMONIA UNSPECIFIED ORGANISM] Onset: 01-19-2022 Episodic Residual codes; unclassified (20 sources) Prevention status; Translations: [Encounter for other specified prophylactic measures] Onset: 07-30-2006 07-30-2006 Episodic Residual codes; unclassified (4 sources) Transient alteration of awareness; Translations: [TRANSIENT ALTERATION OF AWARENESS] Onset: 12-14-2021 Episodic Residual codes; unclassified (2 sources) Altered mental status, unspecified; Translations: [ALTERED MENTAL STATUS UNSPECIFIED] Onset: 11-23-2021 Episodic Residual codes; unclassified (1 source) Edema, unspecified; Translations: [EDEMA UNSPECIFIED] Onset: 12-03-2021 Episodic Residual codes; unclassified (1 source) Do not resuscitate; Translations: [DO NOT RESUSCITATE] Onset: 09-30-2021 Episodic Screening and history of mental health and substance abuse codes (1 source) Personal history of nicotine dependence; Translations: [PERSONAL HISTORY OF NICOTINE DEPEND] Onset: 01-19-2022 Episodic Septicemia (except in labor) (2 sources) Sepsis due to Methicillin resistant Staphylococcus aureus; Translations: [Severe sepsis without septic shock] Onset: 01-19-2022 Episodic Skin and subcutaneous tissue infections (20 sources) Cellulitis; Translations: [Cellulitis, unspecified] Onset: 01-04-2015 02-10-2021 Episodic Unclassified (9 sources) Longstanding persistent atrial fibrillation Results Test Name Value Interpretation Reference Range Facility [facility] 12-25-2022 CNPN Telephone (TXCTGL) ALEX ALMONTE ([id number]) 1945 M Date Time Provider Department 12/25/22 KIDNEY TXP COORDINATORS TXCTGL During your visit today, we recorded the following information about you: Duane Ryan 12/25/2022 10:41 AM Signed Labs 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 Administrative [employer] Operator Allergies As of Date: 12/25/2022 Noted Allergy Reaction PYRIDOSTIGMINE BROMIDE 08/04/2021 8 - GI Upset Date Reviewed: 02/26/2022 Reviewed by: Braden Abel MA - Fully Assessed Prescriptions as of 01/12/2023 - tacrolimus IR (PROGRAF) 1 mg capsule Take 1 capsule by mouth twice daily. TAKE 12 HOURS APART - acetaminophen (TYLENOL EXTRA STRENGTH) 500 mg tablet Take 500 mg by mouth every 8 hours as needed. - sodium hypochlorite, Dakin's Half-Strength, (DAKIN'S SOLUTION) external solution Apply 0.5 mL to affected area every evening. - latanoprost (XALATAN) 0.005 % ophthalmic solution Use in both eyes daily at bedtime. - traMADol (ULTRAM) 50 mg tablet Take 50 mg by mouth every 6 hours as needed for pain. - atorvastatin (LIPITOR) 40 mg tablet Take 40 mg by mouth once daily. - warfarin (COUMADIN) 2 mg tablet Take 3 mg Wednesday, Wednesday, Wednesday and Wednesday. Take 2 mg Wednesday, and Wednesday. - insulin glargine (LANTUS SOLOSTAR, BASAGLAR KWIKPEN) 100 unit/mL (3 mL) Inject 17 Units subcutaneously once daily. - sulfamethoxazole-trim ethoprim (SEPTRA) 400-80 mg per tablet Take by mouth. Take one (1) tablet -- - insulin lispro 100 unit/mL injection Inject 6 Units subcutaneously three times daily before meals. Please give 6 units with meals three times daily plus additional sliding scale below as needed based on accuchecks Correctional Scale 2: For glucose result give insulin dose < 110 mg/dL: 0 units 111-150 mg/dL: 0 units 151-200 mg/dL: 2 units 201-250 mg/dL: 4 units 251-300 mg/dL: 6 units 301-350 mg/dL: 8 units 351-400 mg/dL: 10 units > 400 mg/dL: Give 10 units and notify provider - senna-docusate (SENNA-S) 8.6-50 mg per tablet Take 1 tablet by mouth twice daily. - polyethylene glycol 3350 (MIRALAX, GLYCOLAX) 17 gram packet Take 1 Packet by mouth once daily. Dissolve dose in 4 - 8 ounces of liquid and take as directed. - phosphorus (K PHOS NEUTRAL) 250 mg tablet 1 tablet by ORAL/FEEDING TUBE route twice daily. - ipratropium-albuterol (DUONEB) 0.5 mg-3 mg(2.5 mg base)/3 mL nebu Inhale 3 mL as instructed every 6 hours as needed for wheezing/shortness of breath. - oxyCODONE IR (ROXICODONE) 5 mg immediate release tablet 1-2 tablets by ORAL/FEEDING TUBE route every 3 hours as needed. - torsemide (DEMADEX) 20 mg tablet Take 1 tablet by mouth every other day. - nut.tx.gluc intol,lf,soy-fiber (BOOST GLUCOSE CONTROL) 0.07-0.8 gram-kcal/mL liqd Take 237 mL by mouth daily with dinner. - Food Supplement, Lactose-Free (ENSURE MAX PROTEIN) liqd Take 237 mL by mouth daily with breakfast. - OTC NUTRITIONAL SUPPLEMENT Take 237 mL by mouth daily with lunch. Magic Cup [place] with lunch - aspirin, enteric coated (ASPIRIN, ENTERIC COATED) 81 mg EC tablet Take 1 tablet by mouth once daily. - atorvastatin (LIPITOR) 40 mg tablet 1 tablet by ORAL/FEEDING TUBE route daily at bedtime. - predniSONE (DELTASONE) 5 mg tablet TAKE 1 TABLET BY MOUTH EVERY DAY Problem List As Of Date 12/25/2022 Noted Resolved ULCER OF LOWER LIMB, UNSPEC [L97.909] 02/24/2002 DIAB RENAL MANIF ADULT-UNCONTRLLD [E11.29, E11.*02/24/2002 Type 2 diabetes mellitus with diabetic neuropat*02/24/2002 DIABETES UNCOMPL ADULT-UNCONTRLLED [[id number]] 02/24/2002 KIDNEY TRANSPLANT STATUS [Z94.0] 09/07/2003 PROPHYLACTIC IMMUNOTHERAPY [Z29.89] 07/30/2006 CHIEF CONTRACT OFFICER STEROIDS [[id number]] 07/30/2006 VITAMIN D DEFICIENCY NOS [E55.9] 09/07/2008 MIXED HYPERLIPIDEMIA [E78.2] 09/07/2008 SUMMARY 01/04/2015 ILIANA (acute kidney injury) (HCC) [N17.9] 01/04/2015 Diabetes mellitus (HCC) [E11.9] 01/04/2015 Cellulitis [L03.90] 01/04/2015 Diarrhea [R19.7] 01/04/2015 VTE (venous thromboembolism) [I82.90] 09/24/2021 CAD (coronary artery disease) [I25.10] 2016 Paroxysmal atrial fibrillation (HCC) [I48.0] HTN (hypertension) [I10] SA node dysfunction (HCC) [I49.5] Altered tissue perfusion [R09.89] 09/30/2021 PAD (peripheral artery disease) (HCC) [I73.9] 09/26/2021 Osteomyelitis (HCC) [M86.9] 11/29/2021 Class 1 obesity due to excess calories with ser*11/29/2021 Mixed hyperlipidemia due to type 2 diabetes myles*11/29/2021 Type 2 diabetes mellitus with diabetic peripher*11/29/2021 Atherosclerosis of [place] artery of extremity w*11/29/2021 Malnutrition of moderate degree (HCC) [E44.0] 12/01/2021 Dermatitis associated with moisture [L30.8] 12/04/2021 Encounter Status:Closed by DUANE RYAN on 01/12/23 [facility] 11-11-2022 CNPN Telephone (TXCTGL) ALEX ALMONTE ([id number]) 1945 M Date Time Provider Department 11/11/22 ASIA PIKE TXCTGL During your visit today, we recorded the following information about you: Asia Pike MD 11/11/2022 8:24 AM Signed Called patient to adjust medication based on level: Tacrolimus/FK506 Date Value 11/06/2022 15.4 ng/mL 10/30/2022 14.2 ng/mL 10/16/2022 4.5 ng/mL 10/02/2022 11.8 ng/mL 02/27/2022 9.3 NG/ML 01/19/2022 12.2 NG/ML 01/14/2022 9.9 NG/ML 09/13/2019 6.7 ng/mL Sirolimus/Rapamune (ng/mL) Date Value 11/22/2009 10.7 02/22/2009 10.7 09/07/2008 13.9 03/09/2008 12.1 @CSA@ Current Outpatient Medications Medication Sig tacrolimus IR (PROGRAF) 1 mg capsule TAKE 2 CAPSULES IN MORNING AND 1 CAPSULE IN THE EVENING TAKE 12 HOURS APART tacrolimus IR (PROGRAF) 1 mg capsule TAKE 2 CAPSULES BY MOUTH DAILY AT 6AM*Z94.0* acetaminophen (TYLENOL EXTRA STRENGTH) 500 mg tablet Take 500 mg by mouth every 8 hours as needed. sodium hypochlorite, Dakin's Half-Strength, (DAKIN'S SOLUTION) external solution Apply 0.5 mL to affected area every evening. latanoprost (XALATAN) 0.005 % ophthalmic solution Use in both eyes daily at bedtime. traMADol (ULTRAM) 50 mg tablet Take 50 mg by mouth every 6 hours as needed for pain. atorvastatin (LIPITOR) 40 mg tablet Take 40 mg by mouth once daily. warfarin (COUMADIN) 2 mg tablet Take 3 mg Wednesday, Wednesday, Wednesday and Wednesday. Take 2 mg Wednesday, and Wednesday. insulin glargine (LANTUS SOLOSTAR, BASAGLAR KWIKPEN) 100 unit/mL (3 mL) Inject 17 Units subcutaneously once daily. sulfamethoxazole-trim ethoprim (SEPTRA) 400-80 mg per tablet Take by mouth. Take one (1) tablet M-W- insulin lispro 100 unit/mL injection Inject 6 Units subcutaneously three times daily before meals. Please give 6 units with meals three times daily plus additional sliding scale below as needed based on accuchecks Correctional Scale 2: For glucose result give insulin dose < 110 mg/dL: 0 units 111-150 mg/dL: 0 units 151-200 mg/dL: 2 units 201-250 mg/dL: 4 units 251-300 mg/dL: 6 units 301-350 mg/dL: 8 units 351-400 mg/dL: 10 units > 400 mg/dL: Give 10 units and notify provider senna-docusate (SENNA-S) 8.6-50 mg per tablet Take 1 tablet by mouth twice daily. polyethylene glycol 3350 (MIRALAX, GLYCOLAX) 17 gram packet Take 1 Packet by mouth once daily. Dissolve dose in 4 - 8 ounces of liquid and take as directed. phosphorus (K PHOS NEUTRAL) 250 mg tablet 1 tablet by ORAL/FEEDING TUBE route twice daily. ipratropium-albuterol (DUONEB) 0.5 mg-3 mg(2.5 mg base)/3 mL nebu Inhale 3 mL as instructed every 6 hours as needed for wheezing/shortness of breath. oxyCODONE IR (ROXICODONE) 5 mg immediate release tablet 1-2 tablets by ORAL/FEEDING TUBE route every 3 hours as needed. torsemide (DEMADEX) 20 mg tablet Take 1 tablet by mouth every other day. nut.tx.gluc intol,lf,soy-fiber (BOOST GLUCOSE CONTROL) 0.07-0.8 gram-kcal/mL liqd Take 237 mL by mouth daily with dinner. Food Supplement, Lactose-Free (ENSURE MAX PROTEIN) liqd Take 237 mL by mouth daily with breakfast. (Patient not taking: Reported on 02/26/2022) OTC NUTRITIONAL SUPPLEMENT Take 237 mL by mouth daily with lunch. Magic Cup [place] with lunch aspirin, enteric coated (ASPIRIN, ENTERIC COATED) 81 mg EC tablet Take 1 tablet by mouth once daily. atorvastatin (LIPITOR) 40 mg tablet 1 tablet by ORAL/FEEDING TUBE route daily at bedtime. (Patient not taking: Reported on 02/26/2022) predniSONE (DELTASONE) 5 mg tablet TAKE 1 TABLET BY MOUTH EVERY DAY No current facility-administered medications for this visit. will change med to: tacro 1mg po BID MD Juan Grewal Lisa 11/11/2022 3:56 PM Addendum Asia Pike MD [place], Lisa Lisa, can you contact MR Suzy and have him lower his tacrolimus (prograf) dose to 1 mg in am and 1 mg in pm from current 2mg in am? thanks! RF Pts RN at [facility] reports pts sister picks up Rx from local [facility]. Will resend Rx to Dr. 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 TAKE 2 CAPSULES IN MORNING AND 1 CAPSULE IN THE EVENING TAKE 12 HOURS APARTDisp: 270 capsuleRfl: 4 Prescriptions as of 11/11/2022 - tacrolimus IR (PROGRAF) 1 mg capsule Take 1 capsule by mouth twice daily. TAKE 2 CAPSULES IN MORNING AND 1 CAPSULE IN THE EVENING TAKE 12 HOURS APART - acetaminophen (TYLENOL EXTRA STRENGTH) 500 mg tablet Take 500 mg by mouth every 8 hours as needed. - sodium hypochlorite, Dakin's Half-Strength, (DAKIN'S SOLUTION) external solution Apply 0. (more content not included)... Normal [facility] Office Visiton 09-09-2022 Follow-up visit [id number] Alex Almonte Kate 1945 M Date Provider Department Center 09/09/2022 1596-SARTHAK PARNELL CARD [facility] Family History Problem Relation Age of Onset Cancer Mother Aneurysm Father Cancer Father Parkinsonism Father Family Status - Relation Status Age at Mother Father Level of Service:36155 UT OFFICE/OUTPATIENT ESTABLISHED MOD MDM 30-39 MIN Normal [facility] Glucose Poct Glucometerson 0 07-20-2022 Commemt1 Glu2: Cleaned Meter Normal [facility] Comment on above: Result Comment: PERF ORMED BY: [facility] [address] [place] [address] PATHOLOGIST DIAL SCREW ASSEMBLER JOSE F ELLIOTT M.D. Performed By: #### G MADY #### Point of Care testing , Glucose [Mass/Vol] 176 mg/dL Normal [facility] Comment on above: Result Comment: [place] Glucose Reference Range is dependent on time and content of last meal. Glucose of more than 200 mg/dL in a nonstressed, ambulatory subject supports the diagnosis of Diabetes Mellitus. Performed By: #### G MADY #### Point of Care testing , FK506 (TACROLIMUS) WHOLE BLO ODon 07-12-2022 Tacrolimus (FK506), Blood 10.9 ng/mL Normal 2.0-20.0 [facility] Comment on above: Result Comment: Trou gh (immediately following transplant) 15.0 . Trough (steady state, 2 weeks or more after transplant): 3.0 - 8.0 . Performed by LC-MS/MS technology. Performed By: #### F K506T ####[facility] Xzdpjvfwsx[address] [place], [place] [address]Dr. Farhat Leal CBC AUTO DIFFon 07-10-2022 BASO # 0.0 103/ul Normal 0.0-0.1 [facility] Comment on above: Performed By: #### C BC ####[facility] [address] [place] [address]Dr. Farhat Leal Basophils/100 WBC (Bld) 0.5 % Normal 0.2-2.0 [facility] Comment on above: Performed By: #### C BC ####[facility] [address]te[address]qev[address] [place] [address]Dr. Farhat Leal EO # 0.3 103/ul Normal 0.0-0.7 [facility] Comment on above: Performed By: #### C BC ####[facility] [address] [place] [phone]. Farhat Leal Eosinophils/100 WBC (Bld) 4.9 % Normal 0.9-7.0 [facility] Comment on above: Performed By: #### C BC ####[facility] [address]ths[address]qsmb[address] [place] [address]Dr. Farhat Leal Erythrocyte distribution width (RBC) [Ratio] 13.8 % Normal 11.0-15.0 [facility] Comment on above: Performed By: #### C BC ####[facility] Kkntwub[address] [place], [place] [address]Dr. Farhat Leal Hematocrit (Bld) [Volume fraction] 36.6 % Critically low 42.0-54.0 [facility] Comment on above: Performed By: #### C BC ####[facility] Lrlrbatd[address] [place], [place] [address]Dr. Farhat Leal Hemoglobin (Bld) [Mass/Vol] 12.2 g/dL Critically low 14.0-18.0 [facility] Comment on above: Performed By: #### C BC ####[facility] Szxmfrsqim[address] [place], [place] [address]Dr. Farhat Leal IG # 0.01 10e3/ul Normal 0.00-0.03 [facility] Comment on above: Performed By: #### C BC ####[facility] Avxvqrswyb[address] [place], [place] [address]Dr. Farhat Leal IG % 0.2 % Normal 0.0-0.5 [facility] Comment on above: Performed By: #### C BC ####[facility] Enpmiarlvb[address] [place], [place] [address]Dr. Farhat Leal LYMPH # 2.2 103/ul Normal 1.2-3.8 [facility] Comment on above: Performed By: #### C BC ####[facility] Jkrmueryli[address] [place], [place] [address]Dr. Farhat Leal Lymphocytes/100 WBC (Bld) 33.9 % Normal 20.5-60.0 [facility] Comment on above: Performed By: #### C BC ####[facility] [address]zr[address] [place] [phone]. Farhat Leal MANUAL DIFF REQ NO Normal [facility] Comment on above: Performed By: #### C BC ####[facility] Ekvifym[address]w26[address] [place] [phone]. Farhat Leal MCH (RBC) [Entitic mass] 31.0 pg Normal 25.9-34.0 [facility] Comment on above: Performed By: #### C BC ####[facility] [address]gc[address]xbq[address] [place] [address]Dr. Farhat Leal MCHC (RBC) [Mass/Vol] 33.3 g/dL Normal 29.9-35.2 [facility] Comment on above: Performed By: #### C BC ####[facility] Uswkmsuryt[address] [place] [address]Dr. Farhat Elvis MCV (RBC) [Entitic vol] 93.1 fL Normal 80.0-94.0 [facility] Comment on above: Performed By: #### C BC ####[facility] V[address]ruvef[address] [place] [address]Dr. Farhat Elvis MONO # 0.7 103/ul Normal 0.3-0.8 [facility] Comment on above: Performed By: #### C BC ####[facility] Gmh[address]wsem[address] [place], [place] [address]Dr. Madelynlorri Leal Monocytes/100 WBC (Bld) 10.8 % Normal 1.7-12.0 [facility] Comment on above: Performed By: #### C BC ####[facility] [address]fh[address] [place] [phone]. Farhat Leal NEUT # 3.2 103/ul Normal 1.4-6.5 [facility] Comment on above: Performed By: #### C BC ####[facility] Xghtehslkz[address] [place], [place] [address]Dr. Madelynlorri Leal Neutrophils/100 WBC (Bld) 49.7 % Normal 43.0-75.0 [facility] Comment on above: Performed By: #### C BC ####[facility] Rtzeys[address]mt[address] [place] [phone]. Farhat Leal Platelet mean volume (Bld) [Entitic vol] 10.9 fL Normal 9.5-13.5 [facility] Comment on above: Performed By: #### C BC ####[facility] Nbwytohayu30[address] [place] [phone]. Farhat Leal PLT 195 103/ul Normal 150-450 [facility] Comment on above: Performed By: #### C BC ####[facility] Unnfcylgee9[address] [place] [phone]. Farhat Leal RBC 3.93 106/ul Critically low 4.70-6.[address] [facility] Comment on above: Performed By: #### C BC ####[facility] U[address]vps[address] [place] [address]Dr. Farhat Leal WBC 6.4 103/ul Normal 4.0-11.0 [facility] Comment on above: Performed By: #### C BC ####[facility] Nmjhbsivgd[address] [place], [place] [address]Dr. Madelynlorri Leal MAGNESIUMon 07-10-2022 Magnesium [Mass/Vol] 1.9 mg/dL Normal 1.8-2.4 [facility] Comment on above: Performed By: #### Demetrice Manzo PHOS ####[facility] [address]kw[address] [place] [address]Dr. Farhat Leal PHOSPHORUSon 07-10-2022 Phosphate [Mass/Vol] 4.7 mg/dL Normal 2.6-4.7 [facility] Comment on above: Performed By: #### M Anias PHOS ####[facility] [address]ybr[address] [place] [address]Dr. Farhat Leal PROF 14(COMP METB)on 023 Albumin [Mass/Vol] 2.7 g/dL Critically low 3.4-5.0 [facility] Comment on above: Performed By: #### C MP ####[facility] [address]jpspr[address]aq[address] [place], [place] [address]Dr. Farhat Leal Albumin/Globulin [Mass ratio] 0.8 {ratio} Normal [facility] Comment on above: Performed By: #### C MP ####[facility] K[address]iqjyqzk[address] [place] [address]Dr. Farhat Elvis ALP [Catalytic activity/Vol] 59 U/L Normal 46-116 [facility] Comment on above: Performed By: #### C MP ####[facility] Uieofjoewq10[address] [place] [address]Dr. Farhat Elvis ALT [Catalytic activity/Vol] 16 U/L Normal 16-63 [facility] Comment on above: Performed By: #### C MP ####[facility] Tupoqlbcuu[address] [place], [place] [address]Dr. Farhat Leal Anion gap [Moles/Vol] 12.3 mmol/L Normal [facility] Comment on above: Performed By: #### C MP ####[facility] Yxqynojiys[address] [place], [place] [address]Dr. Farhat Leal AST [Catalytic activity/Vol] 17 U/L Normal 15-37 [facility] Comment on above: Performed By: #### C MP ####[facility] Zhrowcjgkr[address] [place], [place] [address]Dr. Farhat Leal Bilirubin [Mass/Vol] 0.5 mg/dL Normal 0.2-1.0 [facility] Comment on above: Performed By: #### C MP ####[facility] Ozeviiqghu[address] [place], [place] [address]Dr. Farhat Leal Calcium [Mass/Vol] 8.5 mg/dL Normal 8.5-10.1 [facility] Comment on above: Performed By: #### C MP ####[facility] Mhjgmemkla[address] [place], [place] [address]Dr. Farhat Leal Chloride [Moles/Vol] 104 mmol/L Normal 98-107 [facility] Comment on above: Performed By: #### C MP ####[facility] Zfjynhonhq34[address] [place] [address]Dr. Farhat Leal CO2 [Moles/Vol] 27.6 mmol/L Normal 21.0-32.0 [facility] Comment on above: Performed By: #### C MP ####[facility] [address]39[address] [place], [place] [address]Pd. Farhat Leal Creatinine [Mass/Vol] 1.79 mg/dL Critically high 0.70-1.30 [facility] Comment on above: Performed By: #### C MP ####[facility] Vncz[address]rsrx8085 [place], [place] [address]Ss. Farhat Leal EGFR-AF KYRGYZ 45 mL/min/1.73m2 Critically low >=60 [facility] Comment on above: Performed By: #### C MP ####[facility] R[address]okv350[address] [place] [phone]. Farhat Leal EGFR-NON AF KYRGYZ 37 mL/min/1.73m2 Critically low >=60 [facility] Comment on above: Performed By: #### C MP ####[facility] [address]hwc6859 [place] [phone]. Farhat Leal Globulin (S) [Mass/Vol] 3.2 g/dL Normal [facility] Comment on above: Performed By: #### C MP ####[facility] Hdhvfxtvbj7442 [place] [phone]. Farhat Leal Glucose [Mass/Vol] 203 mg/dL Critically high 74-106 [facility] Comment on above: Performed By: #### C MP ####[facility] Krtqiivsnj8[address] [place] [phone]. Farhat Leal Potassium [Moles/Vol] 3.9 mmol/L Normal 3.5-5.1 [facility] Comment on above: Performed By: #### C MP ####[facility] Skywuacfsf05[address] [place], [place] [address]Et. Farhat Leal Protein [Mass/Vol] 5.9 g/dL Critically low 6.4-8.2 [facility] Comment on above: Performed By: #### C MP ####[facility] Zwbxejlxok9754 [place] [phone]. Farhat Leal Sodium [Moles/Vol] 140 mmol/L Normal 136-145 [facility] Comment on above: Performed By: #### C MP ####[facility] Xppevbqynh[address] [place] [address]Dr. Farhat Leal Urea nitrogen [Mass/Vol] 61.0 mg/dL Critically high 7.0-18.0 [facility] Comment on above: Performed By: #### C MP ####[facility] Mim[address]blpfy[address] [place] [address]Dr. Farhat eLal Urea nitrogen/Creatinine [Mass ratio] 34.1 mg/mg Normal [facility] Comment on above: Performed By: #### C MP ####[facility] [address]owupdnsu[address] [place], [place] [address]Dr. Farhat Leal PROTIMEon 07-10-2022 INR Coag (PPP) [Relative time] 2.95 {INR} Normal [facility] Comment on above: Performed By: #### P T ####[facility] Sqmaafnspv[address] [place], [place] [address]Dr. Farhat Leal INR GUIDELINES SEE BELOW Normal [facility] Comment on above: Result Comment: MALINA RED INR: 2.0 - 3.0 CONDITIONS NOT LISTED BELOW 2.5 - 3.5 FOR PROSTHETIC HEART VALVE REPLACEMENT 2.5 - 3.5 RECURRENT THROMBOSIS Performed By: #### P T ####[facility] Bikrcuvrje[address] [place], [place] [address]Dr. Farhat Leal PT Coag (PPP) [Time] 29.4 s Critically high 9.0-11.6 [facility] Comment on above: Performed By: #### P T ####[facility] Uxfaslcupr[address] [place], [place] [address]Dr. Farhat Leal FK506 (TACROLIMUS) WHOLE BLO ODon 07-07-2022 Tacrolimus (FK506), Blood 8.3 ng/mL Normal 2.0-20.0 [facility] Comment on above: Result Comment: Trou gh (immediately following transplant) 15.0 . Trough (steady state, 2 weeks or more after transplant): 3.0 - 8.0 . Performed by LC-MS/MS technology. Performed By: #### F K506T ####[facility] Hwh[address]plp[address]h19[address] [place] [phone]. Farhat Leal CBC AUTO DIFFon 07-03-2022 BASO # 0.0 103/ul Normal 0.0-0.1 [facility] Comment on above: Performed By: #### C BC ####[facility] [address]vmiwegscr[address] [place], [place] [address]Dr. Farhat Leal Basophils/100 WBC (Bld) 0.6 % Normal 0.2-2.0 [facility] Comment on above: Performed By: #### C BC ####[facility] Whafuutgmk[address] [place], [place] [address]Dr. Farhat Leal EO # 0.3 103/ul Normal 0.0-0.7 [facility] Comment on above: Performed By: #### C BC ####[facility] [address]jbdwpfasj[address] [place], [place] [address]Dr. Madelynlorri Leal Eosinophils/100 WBC (Bld) 4.1 % Normal 0.9-7.0 [facility] Comment on above: Performed By: #### C BC ####[facility] Ktkifhkusi[address] [place], [place] [address]Dr. Farhat Leal Erythrocyte distribution width (RBC) [Ratio] 14.0 % Normal 11.0-15.0 [facility] Comment on above: Performed By: #### C BC ####[facility] Mzzoeeroix[address] [place], [place] [address]Dr. Farhat Leal Hematocrit (Bld) [Volume fraction] 35.9 % Critically low 42.0-54.0 [facility] Comment on above: Performed By: #### C BC ####[facility] Fkromhlapt[address] [place], [place] [address]Dr. Madelynlorri Leal Hemoglobin (Bld) [Mass/Vol] 12.0 g/dL Critically low 14.0-18.0 [facility] Comment on above: Performed By: #### C BC ####[facility] Rscrmeuxgk[address] [place], [place] [address]Dr. Farhat Leal IG # 0.04 10e3/ul Critically high 0.00-0.03 [facility] Comment on above: Performed By: #### C BC ####[facility] Psmunhidup2616 [place] [phone]. Farhat Leal IG % 0.6 % Critically high 0.0-0.[address] [facility] Comment on above: Performed By: #### C BC ####[facility] Btdfxdicjz3006 [place] [phone]. Farhat Elvis LYMPH # 1.5 103/ul Normal 1.2-3.8 [facility] Comment on above: Performed By: #### C BC ####[facility] Ewsqj[address]wbk[address] [place] [address]Dr. Madelynlorri Leal Lymphocytes/100 WBC (Bld) 21.5 % Normal 20.5-60.0 [facility] Comment on above: Performed By: #### C BC ####[facility] B[address]bcuhislb3[address] [place] [address]Dr. Farhat Leal MANUAL DIFF REQ NO Normal [facility] Comment on above: Performed By: #### C BC ####[facility] J[address]ptsuqsdi4069 [place] [phone]. Farhat Leal MCH (RBC) [Entitic mass] 30.8 pg Normal 25.9-34.0 [facility] Comment on above: Performed By: #### C BC ####[facility] Qvhmpvwtua5[address] [place] [phone]. Farhat Leal MCHC (RBC) [Mass/Vol] 33.4 g/dL Normal 29.9-35.2 [facility] Comment on above: Performed By: #### C BC ####[facility] [address]okhdrtw3[address] [place] [phone]. Farhat Leal MCV (RBC) [Entitic vol] 92.1 fL Normal 80.0-94.0 [facility] Comment on above: Performed By: #### C BC ####[facility] [address] [place], [place] [address]Dr. Farhat Leal MONO # 0.6 103/ul Normal 0.3-0.8 [facility] Comment on above: Performed By: #### C BC ####[facility] Acq[address]cdqcu16[address] [place] [phone]. Farhat Leal Monocytes/100 WBC (Bld) 8.7 % Normal 1.7-12.0 [facility] Comment on above: Performed By: #### C BC ####[facility] Elnvlibsdv7480 [place] [phone]. Farhat Leal NEUT # 4.4 103/ul Normal 1.4-6.5 [facility] Comment on above: Performed By: #### C BC ####[facility] Rvnmheixlc7409 [place] [phone]. Farhat Leal Neutrophils/100 WBC (Bld) 64.5 % Normal 43.0-75.0 [facility] Comment on above: Performed By: #### C BC ####[facility] Ybezdrjzbi[address] [place] [phone]. Farhat Leal Platelet mean volume (Bld) [Entitic vol] 10.1 fL Normal 9.5-13.5 [facility] Comment on above: Performed By: #### C BC ####[facility] Ahaoujdzmr40[address] [place] [phone]. Farhat Leal PLT 177 103/ul Normal 150-450 [facility] Comment on above: Performed By: #### C BC ####[facility] Rygnllbtnf1478 [place] [phone]. Farhat Leal RBC 3.90 106/ul Critically low 4.70-6.[address] [facility] Comment on above: Performed By: #### C BC ####[facility] Ecwwtmwopq0255 [place] [phone]. Farhat Leal WBC 6.8 103/ul Normal 4.0-11.0 [facility] Comment on above: Performed By: #### C BC ####[facility] Ngkryunnpw6819 [place] [phone]. Farhat Leal PROF 14(COMP METB)on 023 Albumin [Mass/Vol] 2.8 g/dL Critically low 3.4-5.[address] [facility] Comment on above: Performed By: #### C MP ####[facility] Duzixrqdcz[address] [place] [address]Dr. Madelynlorri Elvis Albumin/Globulin [Mass ratio] 0.8 {ratio} Normal [facility] Comment on above: Performed By: #### C MP ####[facility] Yoobglxsfw4[address] [place] [address]Dr. Farhat Leal ALP [Catalytic activity/Vol] 68 U/L Normal 46-116 [facility] Comment on above: Performed By: #### C MP ####[facility] Vvzavpsbwp5[address] [place] [address]Dr. Farhat Leal ALT [Catalytic activity/Vol] 20 U/L Normal 16-63 [facility] Comment on above: Performed By: #### C MP ####[facility] [address]qkizwkez[address] [place], [place] [address]Dr. Farhat Leal Anion gap [Moles/Vol] 11.1 mmol/L Normal [facility] Comment on above: Performed By: #### C MP ####[facility] Ovtagpsujw[address] [place], [place] [address]Dr. Farhat Leal AST [Catalytic activity/Vol] 22 U/L Normal 15-37 [facility] Comment on above: Performed By: #### C MP ####[facility] Ghhybvtlzu[address] [place], [place] [address]Dr. Farhat Leal Bilirubin [Mass/Vol] 0.4 mg/dL Normal 0.2-1.0 [facility] Comment on above: Performed By: #### C MP ####[facility] Iogitjcier[address] [place], [place] [address]Dr. Farhat Leal Calcium [Mass/Vol] 8.5 mg/dL Normal 8.5-10.1 [facility] Comment on above: Performed By: #### C MP ####[facility] Ffcqhkeyrp[address] [place], [place] [address]Dr. Farhat Leal Chloride [Moles/Vol] 106 mmol/L Normal 98-107 [facility] Comment on above: Performed By: #### C MP ####[facility] Euhzbncgts94[address] [place] [phone]. Farhat Leal CO2 [Moles/Vol] 29.1 mmol/L Normal 21.0-32.0 [facility] Comment on above: Performed By: #### C MP ####[facility] Yshnkbotvb2950 [place] [phone]. Farhat Leal Creatinine [Mass/Vol] 1.70 mg/dL Critically high 0.70-1.30 [facility] Comment on above: Performed By: #### C MP ####[facility] Kvnmgbkezx7943 [place] [phone]. Farhat Leal EGFR-AF KYRGYZ 48 mL/min/1.73m2 Critically low >=60 [facility] Comment on above: Performed By: #### C MP ####[facility] Hpjjfnzhzt77[address] [place] [phone]. Farhat Leal EGFR-NON AF KYRGYZ 39 mL/min/1.73m2 Critically low >=60 [facility] Comment on above: Performed By: #### C MP ####[facility] Hjrhmpehir15[address] [place] [phone]. Farhat Leal Globulin (S) [Mass/Vol] 3.6 g/dL Normal [facility] Comment on above: Performed By: #### C MP ####[facility] Ohrazckdks16[address] [place] [phone]. Farhat Leal Glucose [Mass/Vol] 312 mg/dL Critically high 74-106 [facility] Comment on above: Performed By: #### C MP ####[facility] Texynvgrvw[address] [place] [phone]. Farhat Leal Potassium [Moles/Vol] 4.2 mmol/L Normal 3.5-5.1 [facility] Comment on above: Performed By: #### C MP ####[facility] Btczbidoqk67[address] [place] [phone]. Farhat Leal Protein [Mass/Vol] 6.4 g/dL Normal 6.4-8.2 [facility] Comment on above: Performed By: #### C MP ####[facility] Eoplsticbb3636 [place] [address]Dr. Farhat Leal Sodium [Moles/Vol] 142 mmol/L Normal 136-145 [facility] Comment on above: Performed By: #### C MP ####[facility] Quogpvzwaj[address] [place] [address]Dr. Farhat Leal Urea nitrogen [Mass/Vol] 49.0 mg/dL Critically high 7.0-18.0 [facility] Comment on above: Performed By: #### C MP ####[facility] Banuyneyxp3578 [place] [address]Dr. Farhat Leal Urea nitrogen/Creatinine [Mass ratio] 28.8 mg/mg Normal [facility] Comment on above: Performed By: #### C MP ####[facility] Skyclwtqlx[address] [place] [address]Dr. Farhat Leal PROTIMEon 07-03-2022 INR Coag (PPP) [Relative time] 2.23 {INR} Normal [facility] Comment on above: Performed By: #### P T ####[facility] Evnteekksf[address] [place], [place] [address]Dr. Farhat Leal INR GUIDELINES SEE BELOW Normal [facility] Comment on above: Result Comment: MALINA RED INR: 2.0 - 3.0 CONDITIONS NOT LISTED BELOW 2.5 - 3.5 FOR PROSTHETIC HEART VALVE REPLACEMENT 2.5 - 3.5 RECURRENT THROMBOSIS Performed By: #### P T ####[facility] Scypecyruz[address] [place], [place] [address]Dr. Farhat Leal PT Coag (PPP) [Time] 22.6 s Critically high 9.0-11.6 [facility] Comment on above: Performed By: #### P T ####[facility] Uwwsmiaaxq[address] [place], [place] [address]Dr. Farhat Leal FK506 (TACROLIMUS) WHOLE BLO ODon 06-29-2022 Tacrolimus (FK506), Blood 12.2 ng/mL Normal 2.0-20.0 [facility] Comment on above: Result Comment: Trou gh (immediately following transplant) 15.0 . Trough (steady state, 2 weeks or more after transplant): 3.0 - 8.0 . Performed by LC-MS/MS technology. Performed By: #### F K506T ####[facility] Bvwnwrgaha[address] [place], [place] [address]Dr. Farhat Leal CBC AUTO DIFFon 06-26-2022 BASO # 0.0 103/ul Normal 0.0-0.1 [facility] Comment on above: Performed By: #### C BC ####[facility] Jtglpmxtsk[address] [place], [place] [address]Dr. Farhat Elvis Basophils/100 WBC (Bld) 0.5 % Normal 0.2-2.0 [facility] Comment on above: Performed By: #### C BC ####[facility] Jkmuebizpj[address] [place], [place] [address]Dr. Farhat Leal EO # 0.3 103/ul Normal 0.0-0.7 [facility] Comment on above: Performed By: #### C BC ####[facility] Qrxjvqbnkd[address] [place], [place] [address]Dr. Farhat Leal Eosinophils/100 WBC (Bld) 4.3 % Normal 0.9-7.0 [facility] Comment on above: Performed By: #### C BC ####[facility] Vtlylqsnba[address] [place], [place] [address]Dr. Farhat Leal Erythrocyte distribution width (RBC) [Ratio] 14.1 % Normal 11.0-15.0 [facility] Comment on above: Performed By: #### C BC ####[facility] Hnhirpomme[address] [place], [place] [address]Dr. Farhat Leal Hematocrit (Bld) [Volume fraction] 35.4 % Critically low 42.0-54.0 [facility] Comment on above: Performed By: #### C BC ####[facility] Ijhvltwcmz80[address] [place], [place] [address]Dr. Farhat Leal Hemoglobin (Bld) [Mass/Vol] 11.8 g/dL Critically low 14.0-18.0 [facility] Comment on above: Performed By: #### C BC ####[facility] Thnpylmlvn[address] [place] [id number]. Farhat Leal IG # 0.02 10e3/ul Normal 0.00-0.03 [facility] Comment on above: Performed By: #### C BC ####[facility] Zousrathcj5502 [place] [phone]. Farhat Leal IG % 0.3 % Normal 0.0-0.5 [facility] Comment on above: Performed By: #### C BC ####[facility] Vgfgmsvboj1050 [place] [address]Dr. Farhat Leal LYMPH # 2.4 103/ul Normal 1.2-3.8 [facility] Comment on above: Performed By: #### C BC ####[facility] Qtqsowvcgg5663 [place] [address]Dr. Madelynlorri Leal Lymphocytes/100 WBC (Bld) 40.4 % Normal 20.5-60.0 [facility] Comment on above: Performed By: #### C BC ####[facility] Dwxowncqxi9020 [place] [address]Dr. Farhat Leal MANUAL DIFF REQ NO Normal [facility] Comment on above: Performed By: #### C BC ####[facility] Lmpuowvfva4525 [place] [address]Dr. Farhat Leal MCH (RBC) [Entitic mass] 31.0 pg Normal 25.9-34.0 [facility] Comment on above: Performed By: #### C BC ####[facility] Olntuiqoqy7880 [place] [address]Dr. Farhat Leal MCHC (RBC) [Mass/Vol] 33.3 g/dL Normal 29.9-35.2 [facility] Comment on above: Performed By: #### C BC ####[facility] Mrnfukprfv2287 [place] [address]Dr. Farhat Leal MCV (RBC) [Entitic vol] 92.9 fL Normal 80.0-94.0 [facility] Comment on above: Performed By: #### C BC ####[facility] Xsrtyqfpis3259 [place] [phone]. Farhat Elvis MONO # 0.7 103/ul Normal 0.3-0.8 [facility] Comment on above: Performed By: #### C BC ####[facility] Lyvohykyno04[address] [place] [phone]. Farhat Elvis Monocytes/100 WBC (Bld) 11.1 % Normal 1.7-12.0 [facility] Comment on above: Performed By: #### C BC ####[facility] Mabsqepdmx5735 [place] [phone]. Farhat Leal NEUT # 2.6 103/ul Normal 1.4-6.5 [facility] Comment on above: Performed By: #### C BC ####[facility] Vnonjkwrao6382 [place] [address]Dr. Farhat Leal Neutrophils/100 WBC (Bld) 43.4 % Normal 43.0-75.0 [facility] Comment on above: Performed By: #### C BC ####[facility] Fsvbzbsfdt2795 [place] [phone]. Farhat Elvis Platelet mean volume (Bld) [Entitic vol] 10.4 fL Normal 9.5-13.5 [facility] Comment on above: Performed By: #### C BC ####[facility] Rwqlxneerx4463 [place] [phone]. Farhat Elvis PLT 211 103/ul Normal 150-450 [facility] Comment on above: Performed By: #### C BC ####[facility] Bezppvbusn7890 [place] [phone]. Farhat Elvis RBC 3.81 106/ul Critically low 4.70-6.10 [facility] Comment on above: Performed By: #### C BC ####[facility] Dcgmukqmxk1539 [place] [phone]. Madelynlorri Elvis WBC 6.0 103/ul Normal 4.0-11.0 [facility] Comment on above: Performed By: #### C BC ####[facility] Vupifigujc[address] [place], [place] [id number]. Farhat Leal PROF 14(COMP METB)on 023 Albumin [Mass/Vol] 2.6 g/dL Critically low 3.4-5.[address] [facility] Comment on above: Performed By: #### C MP ####[facility] Irkkuwurln9652 [place] [address]Dr. Farhat Leal Albumin/Globulin [Mass ratio] 0.8 {ratio} Normal [facility] Comment on above: Performed By: #### C MP ####[facility] Jjdgmpminu6181 [place] [address]Dr. Farhat Leal ALP [Catalytic activity/Vol] 64 U/L Normal 46-116 [facility] Comment on above: Performed By: #### C MP ####[facility] Faujvdtgiy[address] [place], [place] [address]Dr. Farhat Leal ALT [Catalytic activity/Vol] 18 U/L Normal 16-63 [facility] Comment on above: Performed By: #### C MP ####[facility] Khtjuwttfi63[address] [place], [place] [address]Dr. Farhat Leal Anion gap [Moles/Vol] 10.2 mmol/L Normal [facility] Comment on above: Performed By: #### C MP ####[facility] Eqgewxqcxu238[address] [place], [place] [address]Dr. Farhat Leal AST [Catalytic activity/Vol] 16 U/L Normal 15-37 [facility] Comment on above: Performed By: #### C MP ####[facility] Sgevtshexm3[address] [place], [place] [address]Dr. Farhat Leal Bilirubin [Mass/Vol] 0.6 mg/dL Normal 0.2-1.0 [facility] Comment on above: Performed By: #### C MP ####[facility] Cttcgofsxv70[address] [place], [place] [address]Dr. Farhat Leal Calcium [Mass/Vol] 8.5 mg/dL Normal 8.5-10.1 [facility] Comment on above: Performed By: #### C MP ####[facility] Uoxmkochqm[address] [place], [place] [address]Dr. Farhat Leal Chloride [Moles/Vol] 106 mmol/L Normal 98-107 [facility] Comment on above: Performed By: #### C MP ####[facility] Iobjtrduyy3039 [place] [address]Dr. Farhat Leal CO2 [Moles/Vol] 29.8 mmol/L Normal 21.0-32.0 [facility] Comment on above: Performed By: #### C MP ####[facility] Xrnykswbup36[address] [place], [place] [address]Dr. Farhat Elvis Creatinine [Mass/Vol] 1.60 mg/dL Critically high 0.70-1.30 [facility] Comment on above: Performed By: #### C MP ####[facility] Llylncloua208[address] [place], [place] [address]Dr. Madelynlorri Elvis EGFR-AF KYRGYZ 51 mL/min/1.73m2 Critically low >=60 [facility] Comment on above: Performed By: #### C MP ####[facility] Ydsphvjnfr[address] [place], [place] [address]Dr. Farhat Elvis EGFR-NON AF KYRGYZ 42 mL/min/1.73m2 Critically low >=60 [facility] Comment on above: Performed By: #### C MP ####[facility] Ngywuspgoc0110[address] [place], [place] [address]Dr. Farhat Lael Globulin (S) [Mass/Vol] 3.4 g/dL Normal [facility] Comment on above: Performed By: #### C MP ####[facility] Vrxcwziqdz64[address] [place], [place] [address]Dr. Farhat Leal Glucose [Mass/Vol] 178 mg/dL Critically high 74-106 [facility] Comment on above: Performed By: #### C MP ####[facility] Sumszrcgps[address] [place], [place] [address]Dr. Farhat Leal Potassium [Moles/Vol] 4.0 mmol/L Normal 3.5-5.1 [facility] Comment on above: Performed By: #### C MP ####[facility] Mccgypelnn[address] [place], [place] [address]Dr. Farhat Leal Protein [Mass/Vol] 6.0 g/dL Critically low 6.4-8.2 Th e [facility] Comment on above: Performed By: #### C MP ####[facility] Wddonouhxc[address] [place], [place] [address]Dr. Farhat Leal Sodium [Moles/Vol] 142 mmol/L Normal 136-145 [facility] Comment on above: Performed By: #### C MP ####[facility] Mzbgfqqsxa18[address] [place], [place] [address]Dr. Farhat Leal Urea nitrogen [Mass/Vol] 49.0 mg/dL Critically high 7.0-18.0 [facility] Comment on above: Performed By: #### C MP ####[facility] Jjyleyqjdk[address] [place], [place] [address]Dr. Farhat Leal Urea nitrogen/Creatinine [Mass ratio] 30.6 mg/mg Normal [facility] Comment on above: Performed By: #### C MP ####[facility] Xrwhbirbeu[address] [place], [place] [address]Dr. Farhat Leal PROTIMEon 06-26-2022 INR Coag (PPP) [Relative time] 1.77 {INR} Normal [facility] Comment on above: Performed By: #### P T ####[facility] Pvgksrjnvx[address] [place], [place] [address]Dr. Farhat Leal INR GUIDELINES SEE BELOW Normal [facility] Comment on above: Result Comment: MALINA RED INR: 2.0 - 3.0 CONDITIONS NOT LISTED BELOW 2.5 - 3.5 FOR PROSTHETIC HEART VALVE REPLACEMENT 2.5 - 3.5 RECURRENT THROMBOSIS Performed By: #### P T ####[facility] Uveemxqbet[address] [place], [place] [address]Dr. Farhat Leal PT Coag (PPP) [Time] 18.2 s Critically high 9.0-11.6 [facility] Comment on above: Performed By: #### P T ####[facility] Kbpekuvnto[address] [place], [place] [address]Dr. Farhat Leal FK506 (TACROLIMUS) WHOLE BLO ODon 06-22-2022 Tacrolimus (FK506), Blood 24.5 ng/mL Invalid Interpretation Code 2.0-20.0 [facility] Comment on above: Result Comment: Trou gh (immediately following transplant) 15.0 . Trough (steady state, 2 weeks or more after transplant): 3.0 - 8.0 . Performed by LC-MS/MS technology.Patient drug level exceeds published reference range. Evaluateclinically for signs of potential toxicity. Performed By: #### F K506T ####[facility] Vqxlvoanrp63[address] [place], [place] [address]Dr. Farhat Leal CBC AUTO DIFFon 06-19-2022 BASO # 0.1 103/ul Normal 0.0-0.1 [facility] Comment on above: Performed By: #### C BC ####[facility] Cdbjpyfrgi[address] [place], [place] [address]Dr. Farhat Leal Basophils/100 WBC (Bld) 0.7 % Normal 0.2-2.0 [facility] Comment on above: Performed By: #### C BC ####[facility] Sulubncrro[address] [place], [place] [address]Dr. Farhat Leal EO # 0.4 103/ul Normal 0.0-0.7 [facility] Comment on above: Performed By: #### C BC ####[facility] Hpfccpmukj7[address] [place], [place] [address]Dr. Farhat Leal Eosinophils/100 WBC (Bld) 5.7 % Normal 0.9-7.0 [facility] Comment on above: Performed By: #### C BC ####[facility] Vjcwnekftl[address] [place], [place] [address]Dr. Farhat Leal Erythrocyte distribution width (RBC) [Ratio] 14.5 % Normal 11.0-15.0 [facility] Comment on above: Performed By: #### C BC ####[facility] Abhbeiqlxp[address] [place], [place] [address]Dr. Farhat Leal Hematocrit (Bld) [Volume fraction] 34.1 % Critically low 42.0-54.0 [facility] Comment on above: Performed By: #### C BC ####[facility] Ldaeuy[address]zy4[address] [place] [phone]. Farhat Leal Hemoglobin (Bld) [Mass/Vol] 11.3 g/dL Critically low 14.0-18.0 [facility] Comment on above: Performed By: #### C BC ####[facility] Nquqxcxysh1508 [place] [phone]. Farhat Leal IG # 0.02 10e3/ul Normal 0.00-0.03 [facility] Comment on above: Performed By: #### C BC ####[facility] Knnmxuvzzh3841 [place] [phone]. Farhat Leal IG % 0.3 % Normal 0.0-0.5 [facility] Comment on above: Performed By: #### C BC ####[facility] Gabtevjgst7050 [place] [address]Dr. Farhat Leal LYMPH # 3.1 103/ul Normal 1.2-3.8 [facility] Comment on above: Performed By: #### C BC ####[facility] Drbksfdmty3613 [place] [address]Dr. Farhat Leal Lymphocytes/100 WBC (Bld) 40.6 % Normal 20.5-60.0 [facility] Comment on above: Performed By: #### C BC ####[facility] Tyfgqixgqc1182 [place] [phone]. Farhat Leal MANUAL DIFF REQ NO Normal [facility] Comment on above: Performed By: #### C BC ####[facility] Ychygxoqrp0037 [place] [phone]. Farhat Leal MCH (RBC) [Entitic mass] 30.6 pg Normal 25.9-34.0 [facility] Comment on above: Performed By: #### C BC ####[facility] Hgadlwjtau1706 [place] [phone]. Farhat Leal MCHC (RBC) [Mass/Vol] 33.1 g/dL Normal 29.9-35.2 [facility] Comment on above: Performed By: #### C BC ####[facility] Uwdkarhikz6704 [place] [phone]. Farhat Leal MCV (RBC) [Entitic vol] 92.4 fL Normal 80.0-94.0 [facility] Comment on above: Performed By: #### C BC ####[facility] Xhtpqjiehm5908 [place] [address]Dr. Farhat Leal MONO # 0.8 103/ul Normal 0.3-0.8 [facility] Comment on above: Performed By: #### C BC ####[facility] Gpfvxcbgcp6995 [place] [address]Dr. Farhat Leal Monocytes/100 WBC (Bld) 10.6 % Normal 1.7-12.0 [facility] Comment on above: Performed By: #### C BC ####[facility] Bpczgobnxc[address] [place], [place] [address]Dr. Farhat Leal NEUT # 3.2 103/ul Normal 1.4-6.5 [facility] Comment on above: Performed By: #### C BC ####[facility] Lthfyxzsbo92[address] [place], [place] [address]Dr. Farhat Leal Neutrophils/100 WBC (Bld) 42.1 % Critically low 43.0-75.0 [facility] Comment on above: Performed By: #### C BC ####[facility] Ucchnkdbue6[address] [place], [place] [address]Dr. Farhat Leal Platelet mean volume (Bld) [Entitic vol] 10.6 fL Normal 9.5-13.5 [facility] Comment on above: Performed By: #### C BC ####[facility] Vbsyfeeujo[address] [place], [place] [id number]. Farhat Leal PLT 187 103/ul Normal 150-450 [facility] Comment on above: Performed By: #### C BC ####[facility] Bmtswxdvzd[address] [place], [place] [phone]. Farhat Leal RBC 3.69 106/ul Critically low 4.70-6.10 [facility] Comment on above: Performed By: #### C BC ####[facility] Ylysnidbbd[address] [place], [place] [address]Dr. Farhat Leal WBC 7.7 103/ul Normal 4.0-11.0 [facility] Comment on above: Performed By: #### C BC ####[facility] Bioswerabl1682 [place] [address]Dr. Farhat Leal PROF 14(COMP METB)on 023 Albumin [Mass/Vol] 2.5 g/dL Critically low 3.4-5.0 Th e [facility] Comment on above: Performed By: #### C MP ####[facility] Dotsjxlzuv5896 [place] [address]Dr. Farhat Leal Albumin/Globulin [Mass ratio] 0.8 {ratio} Normal [facility] Comment on above: Performed By: #### C MP ####[facility] Qesvmlxrwo1361 [place] [address]Dr. Farhat Leal ALP [Catalytic activity/Vol] 60 U/L Normal 46-116 [facility] Comment on above: Performed By: #### C MP ####[facility] Tpnovxmzke7278 [place] [address]Dr. Farhat Leal ALT [Catalytic activity/Vol] 16 U/L Normal 16-63 [facility] Comment on above: Performed By: #### C MP ####[facility] Dwpcgirqom5282 [place] [address]Dr. Farhat Leal Anion gap [Moles/Vol] 9.1 mmol/L Normal [facility] Comment on above: Performed By: #### C MP ####[facility] Byscxccmqx0054 [place] [address]Dr. Farhat Leal AST [Catalytic activity/Vol] 31 U/L Normal 15-37 [facility] Comment on above: Performed By: #### C MP ####[facility] Rpgmgdbprm9175 [place] [address]Dr. Farhat Leal Bilirubin [Mass/Vol] 0.3 mg/dL Normal 0.2-1.0 [facility] Comment on above: Performed By: #### C MP ####[facility] Ftduiomweq6523 [place] [address]Dr. Farhat Leal Calcium [Mass/Vol] 8.2 mg/dL Critically low 8.5-10.1 [facility] e [facility] Comment on above: Performed By: #### C MP ####[facility] Pwmelhqtnt8576 [place] [address]Dr. Farhat Leal Chloride [Moles/Vol] 106 mmol/L Normal 98-107 [facility] Comment on above: Performed By: #### C MP ####[facility] Beetwuebhn25[address] [place], [place] [address]Dr. Farhat Leal CO2 [Moles/Vol] 27.0 mmol/L Normal 21.0-32.0 [facility] Comment on above: Performed By: #### C MP ####[facility] Trtglbpkjg173[address] [place], [place] [address]Dr. Farhat Leal Creatinine [Mass/Vol] 1.51 mg/dL Critically high 0.70-1.30 [facility] Comment on above: Performed By: #### C MP ####[facility] Okudjprxqk8900[address] [place], [place] [address]Dr. Farhat Leal EGFR-AF KYRGYZ 55 mL/min/1.73m2 Critically low >=60 [facility] Comment on above: Performed By: #### C MP ####[facility] Hcadkvyhbv[address] [place], [place] [address]Dr. Farhat Leal EGFR-NON AF KYRGYZ 45 mL/min/1.73m2 Critically low >=60 [facility] Comment on above: Performed By: #### C MP ####[facility] Jtegybrrye5767[address] [place], [place] [address]Dr. Farhat Leal Globulin (S) [Mass/Vol] 3.2 g/dL Normal [facility] Comment on above: Performed By: #### C MP ####[facility] Vqpqehwyjo[address] [place], [place] [address]Dr. Farhat Leal Glucose [Mass/Vol] 165 mg/dL Critically high 74-106 T [facility] Comment on above: Performed By: #### C MP ####[facility] Lxwmkgauhk3767[address] [place], [place] [address]Dr. Farhat Leal Potassium [Moles/Vol] 4.1 mmol/L Normal 3.5-5.1 [facility] Comment on above: Performed By: #### C MP ####[facility] Weuchaebpu[address] [place], [place] [address]Dr. Farhat Leal Protein [Mass/Vol] 5.7 g/dL Critically low 6.4-8.2 Th [facility] Comment on above: Performed By: #### C MP ####[facility] Alxqxdxhbq67[address] [place], [place] [address]Dr. Farhat Leal Sodium [Moles/Vol] 138 mmol/L Normal 136-145 [facility] Comment on above: Performed By: #### C MP ####[facility] Wrbvzxspja498[address] [place], [place] [address]Dr. Farhat Leal Urea nitrogen [Mass/Vol] 51.0 mg/dL Critically high 7.0-18.0 [facility] Comment on above: Performed By: #### C MP ####[facility] Hcsuxzbyhu367[address] [place], [place] [address]Dr. Farhat Leal Urea nitrogen/Creatinine [Mass ratio] 33.8 mg/mg Normal [facility] Comment on above: Performed By: #### C MP ####[facility] Tkuxayknkg45[address] [place], [place] [address]Dr. Farhat Leal FK506 (TACROLIMUS) WHOLE BLO ODon 06-15-2022 Tacrolimus (FK506), Blood 16.4 ng/mL Normal 2.0-20.0 [facility] Comment on above: Result Comment: Trou gh (immediately following transplant) 15.0 . Trough (steady state, 2 weeks or more after transplant): 3.0 - 8.0 . Performed by LC-MS/MS technology. Performed By: #### F K506T ####[facility] Ttfkgvulnu24[address] [place], [place] [address]Dr. Farhat Leal PROTIMEon 06-15-2022 INR Coag (PPP) [Relative time] 1.64 {INR} Normal [facility] Comment on above: Performed By: #### P T ####[facility] Jhjinzyqij[address] [place], [place] [address]DrSkylar Leal INR GUIDELINES SEE BELOW Normal [facility] Comment on above: Result Comment: MALINA RED INR: 2.0 - 3.0 CONDITIONS NOT LISTED BELOW 2.5 - 3.5 FOR PROSTHETIC HEART VALVE REPLACEMENT 2.5 - 3.5 RECURRENT THROMBOSIS Performed By: #### P T ####[facility] Rqtcyawqlj[address] [place], [place] [address]DrSkylar Leal PT Coag (PPP) [Time] 16.9 s Critically high 9.0-11.6 [facility] Comment on above: Performed By: #### P T ####[facility] Zxqypacnth[address] [place], [place] [address]DrSkylar Leal CBC AUTO DIFFon 06-12-2022 BASO # 0.0 103/ul Normal 0.0-0.1 [facility] Comment on above: Performed By: #### C BC ####[facility] Lgfesxsmln[address] [place], [place] [address]DrSkylar Leal Basophils/100 WBC (Bld) 0.4 % Normal 0.2-2.0 [facility] Comment on above: Performed By: #### C BC ####[facility] Fyemzoapop8[address] [place], [place] [address]DrSkylar Leal EO # 0.4 103/ul Normal 0.0-0.7 [facility] Comment on above: Performed By: #### C BC ####[facility] Cnlbvttrrf[address] [place], [place] [address]DrSkylar Leal Eosinophils/100 WBC (Bld) 5.4 % Normal 0.9-7.0 [facility] Comment on above: Performed By: #### C BC ####[facility] Ipzlxrpllj[address] [place], [place] [address]DrSkylar Leal Erythrocyte distribution width (RBC) [Ratio] 14.7 % Normal 11.0-15.0 [facility] Comment on above: Performed By: #### C BC ####[facility] Mthuwgwons[address] [place], [place] [address]DrSkylar Leal Hematocrit (Bld) [Volume fraction] 34.8 % Critically low 42.0-54.0 [facility] Comment on above: Performed By: #### C BC ####[facility] Pmesrltoyj9225 [place] [address]Dr. Farhat Leal Hemoglobin (Bld) [Mass/Vol] 11.7 g/dL Critically low 14.0-18.0 [facility] Comment on above: Performed By: #### C BC ####[facility] Edrjbmfsuh5304 [place] [address]Dr. Farhat Leal IG # 0.02 10e3/ul Normal 0.00-0.03 [facility] Comment on above: Performed By: #### C BC ####[facility] Hyhtjwfech[address] [place], [place] [address]Dr. Farhat Elvis IG % 0.3 % Normal 0.0-0.5 [facility] Comment on above: Performed By: #### C BC ####[facility] Btwpkhpvhk[address] [place], [place] [address]DrSkylar Farhat Elvis LYMPH # 2.5 103/ul Normal 1.2-3.8 [facility] Comment on above: Performed By: #### C BC ####[facility] Kvvjkidyjr[address] [place], [place] [address]DrSkylar Farhat Leal Lymphocytes/100 WBC (Bld) 36.8 % Normal 20.5-60.0 [facility] Comment on above: Performed By: #### C BC ####[facility] R[address]baopptzv[address] [place], [place] [address]DrSkylar Farhat Elvis MANUAL DIFF REQ NO Normal [facility] Comment on above: Performed By: #### C BC ####[facility] [facility] [address]hurvxbp[address] [place], [place] [address]DrSkylar Farhat Elvis MCH (RBC) [Entitic mass] 30.9 pg Normal 25.9-34.0 [facility] Comment on above: Performed By: #### C BC ####[facility] Pjewposarl[address] [place], [place] [address]DrSkylar Farhat Elvis MCHC (RBC) [Mass/Vol] 33.6 g/dL Normal 29.9-35.2 [facility] Comment on above: Performed By: #### C BC ####[facility] Mnhtlqufqh16[address] [place] [address]DrSkylar Leal MCV (RBC) [Entitic vol] 91.8 fL Normal 80.0-94.0 [facility] Comment on above: Performed By: #### C BC ####[facility] Trdqkwsypq[address] [place], [place] [address]DrSkylar Leal MONO # 0.8 103/ul Normal 0.3-0.8 [facility] Comment on above: Performed By: #### C BC ####[facility] Etpurwvjsj[address] [place], [place] [address]DrSkylar Leal Monocytes/100 WBC (Bld) 11.9 % Normal 1.7-12.0 [facility] Comment on above: Performed By: #### C BC ####[facility] Rwreyhryrl[address] [place], [place] [address]DrSkylar Leal NEUT # 3.1 103/ul Normal 1.4-6.5 [facility] Comment on above: Performed By: #### C BC ####[facility] Dmmhevdtqd[address] [place], [place] [address]DrSkylar Leal Neutrophils/100 WBC (Bld) 45.2 % Normal 43.0-75.0 [facility] Comment on above: Performed By: #### C BC ####[facility] Chazfpruwq7[address] [place], [place] [address]DrSkylar Leal Platelet mean volume (Bld) [Entitic vol] 10.5 fL Normal 9.5-13.5 [facility] Comment on above: Performed By: #### C BC ####[facility] Ajomsnzbdl39[address] [place], [place] [address]DrSkylar Leal PLT 175 103/ul Normal 150-450 [facility] Comment on above: Performed By: #### C BC ####[facility] Piufcaqoqy9832[address] [place], [place] [address]DrSkylar Leal RBC 3.79 106/ul Critically low 4.70-6.[address] [facility] Comment on above: Performed By: #### C BC ####[facility] Yjjlnmnbyx69[address] [place] [address]Dr. Farhat Leal WBC 6.8 103/ul Normal 4.0-11.0 [facility] Comment on above: Performed By: #### C BC ####[facility] Huzzrcjikn3025 [place] [address]Dr. Farhat Leal MAGNESIUMon 06-12-2022 Magnesium [Mass/Vol] 1.6 mg/dL Critically low 1.8-2.4 [facility] Comment on above: Performed By: #### C MP, MG, PHOS ####[facility] Innupdburn5[address] [place] [address]Dr. Farhat Leal PHOSPHORUSon 06-12-2022 Phosphate [Mass/Vol] 3.8 mg/dL Normal 2.6-4.7 [facility] Comment on above: Performed By: #### C MP, MG, PHOS ####[facility] Uxpopalmpv9[address] [place], [place] [address]Dr. Farhat Leal PROF 14(COMP METB)on 023 Albumin [Mass/Vol] 2.6 g/dL Critically low 3.4-5.[address] [facility] Comment on above: Performed By: #### C MP, MG, PHOS ####[facility] Mqqprvrzwc7316 [place] [address]Dr. Farhat Leal Albumin/Globulin [Mass ratio] 0.8 {ratio} Normal [facility] Comment on above: Performed By: #### C MP, MG, PHOS ####[facility] Qgrffbctlt8288 [place] [address]Dr. Farhat Leal ALP [Catalytic activity/Vol] 64 U/L Normal 46-116 [facility] Comment on above: Performed By: #### C MP, MG, PHOS ####[facility] Xpvzttyffh5210 [place] [address]Dr. Farhat Leal ALT [Catalytic activity/Vol] 18 U/L Normal 16-63 [facility] Comment on above: Performed By: #### C MP, MG, PHOS ####[facility] Ankvayfrpr2959 [place] [address]Dr. Farhat Leal Anion gap [Moles/Vol] 12.9 mmol/L Normal Th [facility] Comment on above: Performed By: #### C MP, MG, PHOS ####[facility] Kddyfupgho6017 [place] [address]Dr. Farhat Leal AST [Catalytic activity/Vol] 18 U/L Normal 15-37 [facility] Comment on above: Performed By: #### C MP, MG, PHOS ####[facility] Nfztfchrtb8[address] [place], [place] [address]Dr. Farhat Leal Bilirubin [Mass/Vol] 0.4 mg/dL Normal 0.2-1.0 [facility] Comment on above: Performed By: #### C MP, MG, PHOS ####[facility] Lsawnpnqsx22[address] [place], [place] [address]Dr. Farhat Leal Calcium [Mass/Vol] 8.7 mg/dL Normal 8.5-10.1 [facility] Comment on above: Performed By: #### C MP, MG, PHOS ####[facility] Redmtarcce7[address] [place], [place] [address]Dr. Farhat Leal Chloride [Moles/Vol] 105 mmol/L Normal 98-107 [facility] Comment on above: Performed By: #### C MP, MG, PHOS ####[facility] Zumcyuhnbb92[address] [place], [place] [address]Dr. Farhat Leal CO2 [Moles/Vol] 27.9 mmol/L Normal 21.0-32.0 [facility] Comment on above: Performed By: #### C MP, MG, PHOS ####[facility] Sfjnbvedyi64[address] [place], [place] [address]Dr. Farhat Leal Creatinine [Mass/Vol] 1.53 mg/dL Critically high 0.70-1.30 [facility] Comment on above: Performed By: #### C MP, MG, PHOS ####[facility] Ltzklamlnt9890 [place] [address]Dr. Farhat Leal EGFR-AF KYRGYZ 54 mL/min/1.73m2 Critically low >=60 [facility] Comment on above: Performed By: #### C MP, MG, PHOS ####[facility] Tlfcfyanjl0650 [place] [address]Dr. Farhat Leal EGFR-NON AF KYRGYZ 44 mL/min/1.73m2 Critically low >=60 [facility] Comment on above: Performed By: #### C MP, MG, PHOS ####[facility] Cbmbbsnplq0290 [place] [address]Dr. Farhat Leal Globulin (S) [Mass/Vol] 3.4 g/dL Normal [facility] Comment on above: Performed By: #### C MP, MG, PHOS ####[facility] Ylvxezrhuj9750 [place] [address]Dr. Farhat Leal Glucose [Mass/Vol] 179 mg/dL Critically high 74-106 [facility] Comment on above: Performed By: #### C MP, MG, PHOS ####[facility] Fnnbykjkds3866 [place] [address]Dr. Farhat Leal Potassium [Moles/Vol] 3.8 mmol/L Normal 3.5-5.1 [facility] Comment on above: Performed By: #### C MP, MG, PHOS ####[facility] Lasddzhmby6174 [place] [address]Dr. Farhat Leal Protein [Mass/Vol] 6.0 g/dL Critically low 6.4-8.[address] [facility] Comment on above: Performed By: #### C MP, MG, PHOS ####[facility] Rlirqwhvnf8909 [place] [address]Dr. Farhat Leal Sodium [Moles/Vol] 142 mmol/L Normal 136-145 [facility] Comment on above: Performed By: #### C MP, MG, PHOS ####[facility] Eltbspmilf6624 [place] [address]Dr. Farhat Leal Urea nitrogen [Mass/Vol] 56.0 mg/dL Critically high 7.0-18.0 [facility] Comment on above: Performed By: #### C MP, MG, PHOS ####[facility] Mnrzqbnime2824[address] [place], [place] [address]Dr. Farhat Leal Urea nitrogen/Creatinine [Mass ratio] 36.6 mg/mg Normal [facility] Comment on above: Performed By: #### C MP, MG, PHOS ####[facility] Ffkvisxrfe[address] [place], [place] [address]Dr. Farhat Leal FK506 (TACROLIMUS) WHOLE BLO ODon 06-08-2022 Tacrolimus (FK506), Blood 13.2 ng/mL Normal 2.0-20.0 [facility] Comment on above: Result Comment: Trou gh (immediately following transplant) 15.0 . Trough (steady state, 2 weeks or more after transplant): 3.0 - 8.0 . Performed by LC-MS/MS technology. Performed By: #### F K506T ####[facility] Xdxcbkekfj[address] [place], [place] [address]Dr. Farhat Leal CBC AUTO DIFFon 06-05-2022 BASO # 0.1 103/ul Normal 0.0-0.1 [facility] Comment on above: Performed By: #### C BC ####[facility] Xvffdfvpzo26[address] [place], [place] [address]Dr. Farhat Leal Basophils/100 WBC (Bld) 0.8 % Normal 0.2-2.0 [facility] Comment on above: Performed By: #### C BC ####[facility] Tkhgmkyvbm[address] [place], [place] [address]Dr. Farhat Leal EO # 0.3 103/ul Normal 0.0-0.7 [facility] Comment on above: Performed By: #### C BC ####[facility] Icvcotbuvq85[address] [place], [place] [address]Dr. Farhat Leal Eosinophils/100 WBC (Bld) 4.7 % Normal 0.9-7.0 [facility] Comment on above: Performed By: #### C BC ####[facility] Oqnntlsobc2027[address] [place], [place] [address]Dr. Farhat Leal Erythrocyte distribution width (RBC) [Ratio] 15.1 % Critically high 11.0-15.0 [facility] Comment on above: Performed By: #### C BC ####[facility] Tbojzmgqkn2255 [place] [address]Dr. Farhat Leal Hematocrit (Bld) [Volume fraction] 35.5 % Critically low 42.0-54.0 [facility] Comment on above: Performed By: #### C BC ####[facility] Oolrvdyygl8079 [place] [address]Dr. Farhat Leal Hemoglobin (Bld) [Mass/Vol] 11.7 g/dL Critically low 14.0-18.0 [facility] Comment on above: Performed By: #### C BC ####[facility] Drlwkufsfc[address] [place], [place] [address]Dr. Farhat Leal IG # 0.01 10e3/ul Normal 0.00-0.03 [facility] Comment on above: Performed By: #### C BC ####[facility] Eknokoabqf439[address] [place], [place] [address]Dr. Farhat Elvis IG % 0.2 % Normal 0.0-0.5 [facility] Comment on above: Performed By: #### C BC ####[facility] Tkosvshhsf[address] [place], [place] [address]Dr. Farhat Elvis LYMPH # 2.1 103/ul Normal 1.2-3.8 [facility] Comment on above: Performed By: #### C BC ####[facility] Fqmgpvxtdk[address] [place], [place] [address]Dr. Madelynlorri Leal Lymphocytes/100 WBC (Bld) 34.5 % Normal 20.5-60.0 [facility] Comment on above: Performed By: #### C BC ####[facility] Kyargwycyj14[address] [place], [place] [address]Dr. Madelynlorri Leal MANUAL DIFF REQ NO Normal [facility] Comment on above: Performed By: #### C BC ####[facility] Sluryqnsna4920[address] [place], [place] [address]Dr. Farhat Leal MCH (RBC) [Entitic mass] 30.6 pg Normal 25.9-34.0 [facility] Comment on above: Performed By: #### C BC ####[facility] Wvfqcboofy6433 [place] [address]Dr. Farhat Leal MCHC (RBC) [Mass/Vol] 33.0 g/dL Normal 29.9-35.2 [facility] Comment on above: Performed By: #### C BC ####[facility] Ogdkikyivo[address] [place], [place] [address]Dr. Farhat Elvis MCV (RBC) [Entitic vol] 92.9 fL Normal 80.0-94.0 [facility] Comment on above: Performed By: #### C BC ####[facility] Khjbkqrutn29[address] [place], [place] [address]Dr. Farhat Leal MONO # 0.7 103/ul Normal 0.3-0.8 [facility] Comment on above: Performed By: #### C BC ####[facility] Vumiyxeykt[address] [place], [place] [address]Dr. Madelynlorri Leal Monocytes/100 WBC (Bld) 11.4 % Normal 1.7-12.0 [facility] Comment on above: Performed By: #### C BC ####[facility] Kgtpijvqpx9427[address] [place], [place] [address]Dr. Farhat Leal NEUT # 2.9 103/ul Normal 1.4-6.5 [facility] Comment on above: Performed By: #### C BC ####[facility] Dymhvtrmyl8640[address] [place], [place] [address]Dr. Madelynlorri Leal Neutrophils/100 WBC (Bld) 48.4 % Normal 43.0-75.0 [facility] Comment on above: Performed By: #### C BC ####[facility] Wbwghmzxew[address] [place], [place] [address]Dr. Farhat Elvis Platelet mean volume (Bld) [Entitic vol] 10.7 fL Normal 9.5-13.5 [facility] Comment on above: Performed By: #### C BC ####[facility] Dajzbxflez8274 [place] [phone]. Farhat Leal PLT 185 103/ul Normal 150-450 [facility] Comment on above: Performed By: #### C BC ####[facility] Trmwbnxwhx224[address] [place], [place] [address]Dr. Farhat Leal RBC 3.82 106/ul Critically low 4.70-6.10 [facility] Comment on above: Performed By: #### C BC ####[facility] Slioffidza724[address] [place], [place] [address]Dr. Farhat Leal WBC 6.0 103/ul Normal 4.0-11.0 [facility] Comment on above: Performed By: #### C BC ####[facility] Xqvyewlipy15[address] [place], [place] [address]Dr. Farhat Leal MAGNESIUMon 06-05-2022 Magnesium [Mass/Vol] 1.9 mg/dL Normal 1.8-2.4 [facility] Comment on above: Performed By: #### P HOS, MG ####[facility] Jnisniqbtp5[address] [place], [place] [address]Dr. Farhat Leal PHOSPHORUSon 06-05-2022 Phosphate [Mass/Vol] 4.4 mg/dL Normal 2.6-4.7 [facility] Comment on above: Performed By: #### P HOS, MG ####[facility] Gvcztxyzsa52[address] [place], [place] [address]Dr. Farhat Leal PROTIMEon 06-05-2022 INR Coag (PPP) [Relative time] 2.16 {INR} Normal [facility] Comment on above: Performed By: #### P T ####[facility] Xhdhxmhufu[address] [place], [place] [address]Dr. Farhat Leal INR GUIDELINES SEE BELOW Normal [facility] Comment on above: Result Comment: MALINA RED INR: 2.0 - 3.0 CONDITIONS NOT LISTED BELOW 2.5 - 3.5 FOR PROSTHETIC HEART VALVE REPLACEMENT 2.5 - 3.5 RECURRENT THROMBOSIS Performed By: #### P T ####[facility] Nuulcigige[address] [place], [place] [address]Dr. Farhat Leal PT Coag (PPP) [Time] 21.9 s Critically high 9.0-11.6 [facility] Comment on above: Performed By: #### P T ####[facility] Jwfbevbkia5713[address] [place], [place] [address]Dr. Farhat Leal FK506 (TACROLIMUS) WHOLE BLO ODon 06-01-2022 Tacrolimus (FK506), Blood 26.4 ng/mL Invalid Interpretation Code 2.0-20.0 [facility] Comment on above: Result Comment: Trou gh (immediately following transplant) 15.0 . Trough (steady state, 2 weeks or more after transplant): 3.0 - 8.0 . Performed by LC-MS/MS technology.Patient drug level exceeds published reference range. Evaluateclinically for signs of potential toxicity. Performed By: #### F K506T ####[facility] Rvnfaobwkr[address] [place], [place] [address]Dr. Farhta Elvis CBC AUTO DIFFon 05-29-2022 BASO # 0.0 103/ul Normal 0.0-0.1 [facility] Comment on above: Performed By: #### C BC ####[facility] Ydksccdijk79[address] [place], [place] [address]Dr. Madelynlorri Leal Basophils/100 WBC (Bld) 0.6 % Normal 0.2-2.0 [facility] Comment on above: Performed By: #### C BC ####[facility] Ascdlexaqy584[address] [place], [place] [address]Dr. Farhat Leal EO # 0.3 103/ul Normal 0.0-0.7 [facility] Comment on above: Performed By: #### C BC ####[facility] Mtkszrgozh010[address] [place], [place] [address]Dr. Farhat Leal Eosinophils/100 WBC (Bld) 4.7 % Normal 0.9-7.0 [facility] Comment on above: Performed By: #### C BC ####[facility] Ttafvgeeol13[address] [place], [place] [address]Dr. Farhat eLal Erythrocyte distribution width (RBC) [Ratio] 15.3 % Critically high 11.0-15.0 [facility] Comment on above: Performed By: #### C BC ####[facility] Kvhugjcwma8938 [place] [address]Dr. Farhat Leal Hematocrit (Bld) [Volume fraction] 36.6 % Critically low 42.0-54.0 [facility] Comment on above: Performed By: #### C BC ####[facility] Ctbufikoue0941 [place] [address]Dr. Madelynlorri Leal Hemoglobin (Bld) [Mass/Vol] 12.3 g/dL Critically low 14.0-18.0 [facility] Comment on above: Performed By: #### C BC ####[facility] Xyvgjryzet6[address] [place], [place] [address]Dr. Madelynlorri Leal IG # 0.02 10e3/ul Normal 0.00-0.03 [facility] Comment on above: Performed By: #### C BC ####[facility] Ruuddurmdy8920[address] [place], [place] [address]Dr. Farhat Leal IG % 0.3 % Normal 0.0-0.5 [facility] Comment on above: Performed By: #### C BC ####[facility] Btkmhskexq24[address] [place], [place] [address]Dr. Madelynlorri Leal LYMPH # 2.8 103/ul Normal 1.2-3.8 [facility] Comment on above: Performed By: #### C BC ####[facility] Xibzataoqo[address] [place], [place] [address]Dr. Farhat Leal Lymphocytes/100 WBC (Bld) 44.4 % Normal 20.5-60.0 [facility] Comment on above: Performed By: #### C BC ####[facility] Wxlfagsqjq345[address] [place], [place] [address]Dr. Farhat Leal MANUAL DIFF REQ NO Normal [facility] Comment on above: Performed By: #### C BC ####[facility] Oiexkykidj73[address] [place], [place] [address]Dr. Farhat Leal MCH (RBC) [Entitic mass] 30.4 pg Normal 25.9-34.0 [facility] Comment on above: Performed By: #### C BC ####[facility] Cjgjstppyx5[address] [place] [phone]. Farhat Elvis MCHC (RBC) [Mass/Vol] 33.6 g/dL Normal 29.9-35.2 [facility] Comment on above: Performed By: #### C BC ####[facility] Eppdmugbwl5182 [place] [phone]. Farhat Leal MCV (RBC) [Entitic vol] 90.4 fL Normal 80.0-94.0 [facility] Comment on above: Performed By: #### C BC ####[facility] Kslpxziwmu9[address] [place], [place] [address]Dr. Farhat Leal MONO # 0.7 103/ul Normal 0.3-0.8 [facility] Comment on above: Performed By: #### C BC ####[facility] Fjdeiwkrxs[address] [place], [place] [address]Dr. Farhat Leal Monocytes/100 WBC (Bld) 10.7 % Normal 1.7-12.0 [facility] Comment on above: Performed By: #### C BC ####[facility] Dfiuybqpjb48[address] [place], [place] [address]Dr. Farhat Leal NEUT # 2.5 103/ul Normal 1.4-6.5 [facility] Comment on above: Performed By: #### C BC ####[facility] Gfrlsonnqd[address] [place], [place] [address]Dr. Farhat Leal Neutrophils/100 WBC (Bld) 39.3 % Critically low 43.0-75.0 [facility] Comment on above: Performed By: #### C BC ####[facility] Iocafzmlhn58[address] [place], [place] [address]Dr. Farhat Leal Platelet mean volume (Bld) [Entitic vol] 10.5 fL Normal 9.5-13.5 [facility] Comment on above: Performed By: #### C BC ####[facility] Tjbadmsnbv06[address] [place], [place] [address]Dr. Farhat Leal PLT 190 103/ul Normal 150-450 [facility] Comment on above: Performed By: #### C BC ####[facility] Lohxbeomnn7129 [place] [phone]. Farhat Leal RBC 4.05 106/ul Critically low 4.70-6.[address] [facility] Comment on above: Performed By: #### C BC ####[facility] Wkfqucthsu8070 [place] [phone]. Farhat Leal WBC 6.4 103/ul Normal 4.0-11.0 [facility] Comment on above: Performed By: #### C BC ####[facility] Nislqbuwva2889 [place] [address]Dr. Farhat Leal PROF 14(COMP METB)on 023 Albumin [Mass/Vol] 2.5 g/dL Critically low 3.4-5.[address] [facility] Comment on above: Performed By: #### C MP ####[facility] Ckgridqhda4985 [place] [address]Dr. Farhat Leal Albumin/Globulin [Mass ratio] 0.8 {ratio} Normal [facility] Comment on above: Performed By: #### C MP ####[facility] Kqmzzhircs8406 [place] [address]Dr. Farhat Leal ALP [Catalytic activity/Vol] 61 U/L Normal 46-116 [facility] Comment on above: Performed By: #### C MP ####[facility] Tpxamgwend2410 [place] [address]Dr. Farhat Leal ALT [Catalytic activity/Vol] 16 U/L Normal 16-63 [facility] Comment on above: Performed By: #### C MP ####[facility] Cqruffhvtg0645 [place] [address]Dr. Farhat Leal Anion gap [Moles/Vol] 12.3 mmol/L Normal [facility] Comment on above: Performed By: #### C MP ####[facility] Xfkchxafxc1517 [place] [address]Dr. Farhat Leal AST [Catalytic activity/Vol] 18 U/L Normal 15-37 [facility] Comment on above: Performed By: #### C MP ####[facility] Cpjmrgdqjg4557 [place] [phone]. Farhat Leal Bilirubin [Mass/Vol] 0.5 mg/dL Normal 0.2-1.0 [facility] Comment on above: Performed By: #### C MP ####[facility] Gglgdtuayy4149 [place] [phone]. Farhat Leal Calcium [Mass/Vol] 8.6 mg/dL Normal 8.5-10.1 [facility] Comment on above: Performed By: #### C MP ####[facility] Yovpmbyhsm5422 [place] [phone]. Farhat Leal Chloride [Moles/Vol] 105 mmol/L Normal 98-107 [facility] Comment on above: Performed By: #### C MP ####[facility] Joetzimkxf2827 [place] [phone]. Farhat Leal CO2 [Moles/Vol] 28.6 mmol/L Normal 21.0-32.0 [facility] Comment on above: Performed By: #### C MP ####[facility] Afgzvaxhvu3592 [place] [phone]. Farhat Leal Creatinine [Mass/Vol] 1.47 mg/dL Critically high 0.70-1.30 [facility] Comment on above: Performed By: #### C MP ####[facility] Qianbqkauj7895 [place] [phone]. Farhat Leal EGFR-AF KYRGYZ 56 mL/min/1.73m2 Critically low >=60 [facility] Comment on above: Performed By: #### C MP ####[facility] Omjzyhckmu3348 [place] [phone]. Farhat Leal EGFR-NON AF KYRGYZ 46 mL/min/1.73m2 Critically low >=60 [facility] Comment on above: Performed By: #### C MP ####[facility] W[address]vrjxtbx[address] [place], [place] [address]Dr. Farhat Leal Globulin (S) [Mass/Vol] 3.3 g/dL Normal [facility] Comment on above: Performed By: #### C MP ####[facility] Mkvqjwczuu1043 [place], [place] [address]Tv. Farhat Leal Glucose [Mass/Vol] 164 mg/dL Critically high 74-106 T [facility] Comment on above: Performed By: #### C MP ####[facility] Xtfnwbsffp1199 [place], [place] [address]Mp. Farhat Leal Potassium [Moles/Vol] 3.9 mmol/L Normal 3.5-5.1 [facility] Comment on above: Performed By: #### C MP ####[facility] Nhprezefhy6802 [place] [phone]. Farhat Leal Protein [Mass/Vol] 5.8 g/dL Critically low 6.4-8.2 Th [facility] Comment on above: Performed By: #### C MP ####[facility] Tphntxmtcs6578 [place] [phone]. Farhat Leal Sodium [Moles/Vol] 142 mmol/L Normal 136-145 [facility] Comment on above: Performed By: #### C MP ####[facility] Uaevmkxloi4542 [place] [phone]. Farhat Leal Urea nitrogen [Mass/Vol] 53.0 mg/dL Critically high 7.0-18.0 [facility] Comment on above: Performed By: #### C MP ####[facility] Hfgkpdhclk0826 [place] [phone]. Madelynlorri Leal Urea nitrogen/Creatinine [Mass ratio] 36.1 mg/mg Normal [facility] Comment on above: Performed By: #### C MP ####[facility] Epzxerdcly2808 [place] [phone]. Farhat Elvis PROTIMEon 05-29-2022 INR Coag (PPP) [Relative time] 2.41 {INR} Normal [facility] Comment on above: Performed By: #### P T ####[facility] Uvxbchjyzr2687 [place] [phone]. Madelynlorri Elvis INR GUIDELINES SEE BELOW Normal [facility] Comment on above: Result Comment: MALINA RED INR: 2.0 - 3.0 CONDITIONS NOT LISTED BELOW 2.5 - 3.5 FOR PROSTHETIC HEART VALVE REPLACEMENT 2.5 - 3.5 RECURRENT THROMBOSIS Performed By: #### P T ####[facility] [address]rsfkk[address] [place], [place] [address]DrSkylar Leal PT Coag (PPP) [Time] 24.3 s Critically high 9.0-11.6 [facility] Comment on above: Performed By: #### P T ####[facility] [address]brm[address] [place] [address]DrSkylar Leal FK506 (TACROLIMUS) WHOLE BLO ODon 05-25-2022 Tacrolimus (FK506), Blood 5.1 ng/mL Normal 2.0-20.0 [facility] Comment on above: Result Comment: Trou gh (immediately following transplant) 15.0 . Trough (steady state, 2 weeks or more after transplant): 3.0 - 8.0 . Performed by LC-MS/MS technology. Performed By: #### F K506T ####[facility] Xsadnb[address]so[address] [place], [place] [address]DrSkylar Leal CBC AUTO DIFFon 05-22-2022 BASO # 0.0 103/ul Normal 0.0-0.1 [facility] Comment on above: Performed By: #### C BC ####[facility] Sscbpwpysl6[address] [place], [place] [address]Dr. Farhat Leal Basophils/100 WBC (Bld) 0.5 % Normal 0.2-2.0 [facility] Comment on above: Performed By: #### C BC ####[facility] Fnhamzodzz[address] [place], [place] [address]DrSkylar Leal EO # 0.2 103/ul Normal 0.0-0.7 [facility] Comment on above: Performed By: #### C BC ####[facility] Dcoglkcooe9[address] [place], [place] [address]DrSkylar Leal Eosinophils/100 WBC (Bld) 4.0 % Normal 0.9-7.0 [facility] Comment on above: Performed By: #### C BC ####[facility] Elidwcrxmh4[address] [place], [place] [address]Dr. Farhat Leal Erythrocyte distribution width (RBC) [Ratio] 15.5 % Critically high 11.0-15.0 [facility] Comment on above: Performed By: #### C BC ####[facility] Bjmqbsvdin0456 [place] [address]Dr. Farhat Leal Hematocrit (Bld) [Volume fraction] 34.1 % Critically low 42.0-54.0 [facility] Comment on above: Performed By: #### C BC ####[facility] Gfowomqlzf2609 [place] [address]Dr. Madelynlorri Leal Hemoglobin (Bld) [Mass/Vol] 11.3 g/dL Critically low 14.0-18.0 [facility] Comment on above: Performed By: #### C BC ####[facility] Antemgiqun9984 [place] [address]Dr. Farhat Leal IG # 0.03 10e3/ul Normal 0.00-0.03 [facility] Comment on above: Performed By: #### C BC ####[facility] Vsezjolcdv2621 [place] [address]Dr. Farhat Leal IG % 0.5 % Normal 0.0-0.5 [facility] Comment on above: Performed By: #### C BC ####[facility] Udwhnpixku1960 [place] [address]Dr. Farhat Leal LYMPH # 2.1 103/ul Normal 1.2-3.8 [facility] Comment on above: Performed By: #### C BC ####[facility] Orgcepbuoq3186 [place] [address]Dr. Farhat Leal Lymphocytes/100 WBC (Bld) 34.6 % Normal 20.5-60.0 [facility] Comment on above: Performed By: #### C BC ####[facility] Rykfncykpn0656 [place] [address]Dr. Farhat Leal MANUAL DIFF REQ NO Normal [facility] Comment on above: Performed By: #### C BC ####[facility] Uyqmwlhpxo2537 [place] [address]Dr. Farhat Leal MCH (RBC) [Entitic mass] 30.3 pg Normal 25.9-34.0 [facility] Comment on above: Performed By: #### C BC ####[facility] Duzlrdktsk2915 [place] [address]Dr. Farhat Leal MCHC (RBC) [Mass/Vol] 33.1 g/dL Normal 29.9-35.2 [facility] Comment on above: Performed By: #### C BC ####[facility] Sdithryfzb8531 [place] [address]Dr. Farhat Leal MCV (RBC) [Entitic vol] 91.4 fL Normal 80.0-94.0 [facility] Comment on above: Performed By: #### C BC ####[facility] Bbskdaythq[address] [place], [place] [address]Dr. Farhat Elvis MONO # 0.7 103/ul Normal 0.3-0.8 [facility] Comment on above: Performed By: #### C BC ####[facility] Fvfdnrjtoh[address] [place], [place] [address]Dr. Farhat Elvis Monocytes/100 WBC (Bld) 11.6 % Normal 1.7-12.0 [facility] Comment on above: Performed By: #### C BC ####[facility] Vpxrxsswfz15[address] [place], [place] [address]Dr. Farhat Leal NEUT # 2.9 103/ul Normal 1.4-6.5 [facility] Comment on above: Performed By: #### C BC ####[facility] Psuinlzphk9[address] [place], [place] [address]Dr. Madelynlorri Leal Neutrophils/100 WBC (Bld) 48.8 % Normal 43.0-75.0 [facility] Comment on above: Performed By: #### C BC ####[facility] Uaoezklfnt054[address] [place], [place] [address]Dr. Farhat Elvis Platelet mean volume (Bld) [Entitic vol] 10.9 fL Normal 9.5-13.5 [facility] Comment on above: Performed By: #### C BC ####[facility] Bdxudyeadj7735 [place] [phone]. Farhat Elvis PLT 186 103/ul Normal 150-450 [facility] Comment on above: Performed By: #### C BC ####[facility] Duosbhakvm8155 [place] [phone]. Farhat Leal RBC 3.73 106/ul Critically low 4.70-6.10 [facility] Comment on above: Performed By: #### C BC ####[facility] Gjncbaklbv2563 [place] [phone]. Farhat Evlis WBC 6.0 103/ul Normal 4.0-11.0 [facility] Comment on above: Performed By: #### C BC ####[facility] Ahfklahvlw8391 [place] [address]Dr. Farhat Leal PROF 14(COMP METB)on 023 Albumin [Mass/Vol] 2.7 g/dL Critically low 3.4-5.[address] [facility] Comment on above: Performed By: #### C MP ####[facility] Hmupcxmvxx8884 [place] [address]Dr. Madelynlorri Leal Albumin/Globulin [Mass ratio] 0.8 {ratio} Normal [facility] Comment on above: Performed By: #### C MP ####[facility] Vdoawzutoa3487 [place] [address]Dr. Farhat Leal ALP [Catalytic activity/Vol] 60 U/L Normal 46-116 [facility] Comment on above: Performed By: #### C MP ####[facility] Gfcmekzhnm1927 [place] [address]Dr. Farhat Leal ALT [Catalytic activity/Vol] 17 U/L Normal 16-63 [facility] Comment on above: Performed By: #### C MP ####[facility] Xazjuimvvw9126 [place] [address]Dr. Farhat Leal Anion gap [Moles/Vol] 9.6 mmol/L Normal [facility] Comment on above: Performed By: #### C MP ####[facility] Kmqetqooca27[address] [place], [place] [address]Dr. Madelynlorri Elvis AST [Catalytic activity/Vol] 14 U/L Critically low 15-37 [facility] Comment on above: Performed By: #### C MP ####[facility] Vvvnccfscp6108 [place] [address]Dr. Farhat Leal Bilirubin [Mass/Vol] 0.5 mg/dL Normal 0.2-1.0 [facility] Comment on above: Performed By: #### C MP ####[facility] Yvwccbfovw[address] [place], [place] [address]Dr. Farhat Leal Calcium [Mass/Vol] 8.4 mg/dL Critically low 8.5-10.1 [facility] Comment on above: Performed By: #### C MP ####[facility] Hscomrdjpl382[address] [place], [place] [address]Dr. Farhat Leal Chloride [Moles/Vol] 104 mmol/L Normal 98-107 [facility] Comment on above: Performed By: #### C MP ####[facility] Aknyjebvlc00[address] [place], [place] [address]Dr. Farhat Leal CO2 [Moles/Vol] 27.2 mmol/L Normal 21.0-32.0 [facility] Comment on above: Performed By: #### C MP ####[facility] Bhtzfcmfxb242[address] [place], [place] [address]Dr. Farhat Leal Creatinine [Mass/Vol] 1.24 mg/dL Normal 0.70-1.30 [facility] Comment on above: Performed By: #### C MP ####[facility] Byqevvwdmr01[address] [place], [place] [address]Dr. Farhat Leal EGFR-AF KYRGYZ >60 Normal >=60 [facility] Comment on above: Performed By: #### C MP ####[facility] Ocmvungmso0932[address] [place], [place] [address]Dr. Farhat Leal EGFR-NON AF KYRGYZ 57 mL/min/1.73m2 Critically low >=60 [facility] Comment on above: Performed By: #### C MP ####[facility] Kmrtgozhjg367[address] [place], [place] [address]Dr. Farhat Leal Globulin (S) [Mass/Vol] 3.3 g/dL Normal [facility] Comment on above: Performed By: #### C MP ####[facility] Qwahwhwyug80[address] [place], [place] [address]Dr. Farhat Leal Glucose [Mass/Vol] 275 mg/dL Critically high 74-106 T [facility] Comment on above: Performed By: #### C MP ####[facility] Cmihfrbzty8859[address] [place], [place] [address]Dr. Farhat Elvis Potassium [Moles/Vol] 3.8 mmol/L Normal 3.5-5.1 [facility] Comment on above: Performed By: #### C MP ####[facility] Mqkopxqvio[address] [place], [place] [address]Dr. Farhat Elvis Protein [Mass/Vol] 6.0 g/dL Critically low 6.4-8.2 Th [facility] Comment on above: Performed By: #### C MP ####[facility] Vfbdrpbfkk1775[address] [place], [place] [address]Dr. Farhat Elvis Sodium [Moles/Vol] 137 mmol/L Normal 136-145 [facility] Comment on above: Performed By: #### C MP ####[facility] Hmuwydvgww8[address] [place], [place] [address]Dr. Farhat Elvis Urea nitrogen [Mass/Vol] 54.0 mg/dL Critically high 7.0-18.0 [facility] Comment on above: Performed By: #### C MP ####[facility] Njtntnrpyt7[address] [place], [place] [address]Dr. Farhat Elvis Urea nitrogen/Creatinine [Mass ratio] 43.5 mg/mg Normal [facility] Comment on above: Performed By: #### C MP ####[facility] Tszpgfrjfu[address] [place], [place] [address]Dr. Farhat Elvis PROTIMEon 05-22-2022 INR Coag (PPP) [Relative time] 2.27 {INR} Normal [facility] Comment on above: Performed By: #### P T ####[facility] Gihaqxsboy78[address] [place], [place] [address]DrSkylar Leal INR GUIDELINES SEE BELOW Normal [facility] Comment on above: Result Comment: MALINA RED INR: 2.0 - 3.0 CONDITIONS NOT LISTED BELOW 2.5 - 3.5 FOR PROSTHETIC HEART VALVE REPLACEMENT 2.5 - 3.5 RECURRENT THROMBOSIS Performed By: #### P T ####[facility] Pjrbmgrxns[address] [place] [address]DrSkylar Leal PT Coag (PPP) [Time] 23.0 s Critically high 9.0-11.6 [facility] Comment on above: Performed By: #### P T ####[facility] Yhjcqgiaoo6025[address] [place], [place] [address]DrSkylar Leal FK506 (TACROLIMUS) WHOLE BLO ODon 05-19-2022 Tacrolimus (FK506), Blood 7.8 ng/mL Normal 2.0-20.0 [facility] Comment on above: Result Comment: Trou gh (immediately following transplant) 15.0 . Trough (steady state, 2 weeks or more after transplant): 3.0 - 8.0 . Performed by LC-MS/MS technology. Performed By: #### F K506T ####[facility] Rotetuyfmm5512[address] [place], [place] [address]Dr. Farhat Leal CBC AUTO DIFFon 05-15-2022 BASO # 0.0 103/ul Normal 0.0-0.1 [facility] Comment on above: Performed By: #### C BC ####[facility] Vutixvbumx[address] [place], [place] [address]DrSkylar Leal Basophils/100 WBC (Bld) 0.4 % Normal 0.2-2.0 [facility] Comment on above: Performed By: #### C BC ####[facility] Jnogmrmuhd[address] [place], [place] [address]DrSkylar Leal EO # 0.2 103/ul Normal 0.0-0.7 [facility] Comment on above: Performed By: #### C BC ####[facility] Akfezrepld[address] [place], [place] [address]DrSkylar Leal Eosinophils/100 WBC (Bld) 3.0 % Normal 0.9-7.0 [facility] Comment on above: Performed By: #### C BC ####[facility] Eprzwdgvfk7769 [place] [address]Dr. Farhat Leal Erythrocyte distribution width (RBC) [Ratio] 15.7 % Critically high 11.0-15.0 [facility] Comment on above: Performed By: #### C BC ####[facility] Vsojzqgozg0513[address] [place], [place] [address]Dr. Farhat Leal Hematocrit (Bld) [Volume fraction] 36.8 % Critically low 42.0-54.0 [facility] Comment on above: Performed By: #### C BC ####[facility] Fovxzlqvla119[address] [place], [place] [address]Dr. Farhat Leal Hemoglobin (Bld) [Mass/Vol] 12.4 g/dL Critically low 14.0-18.0 [facility] Comment on above: Performed By: #### C BC ####[facility] Iuyjvrtnwt11[address] [place], [place] [address]Dr. Farhat Leal IG # 0.01 10e3/ul Normal 0.00-0.03 [facility] Comment on above: Performed By: #### C BC ####[facility] Qxeqhzemnw3325[address] [place], [place] [address]Dr. Farhat Leal IG % 0.1 % Normal 0.0-0.5 [facility] Comment on above: Performed By: #### C BC ####[facility] Fxuzlubnhs97[address] [place], [place] [address]Dr. Farhat Leal LYMPH # 2.4 103/ul Normal 1.2-3.8 [facility] Comment on above: Performed By: #### C BC ####[facility] Fwdykrdlfm3470[address] [place], [place] [address]Dr. Farhat Elvis Lymphocytes/100 WBC (Bld) 35.6 % Normal 20.5-60.0 [facility] Comment on above: Performed By: #### C BC ####[facility] Ejqwswfhsy12[address] [place], [place] [address]Dr. Farhat Elvis MANUAL DIFF REQ NO Normal [facility] Comment on above: Performed By: #### C BC ####[facility] Avgsnrodnt9522 [place] [phone]. Farhat Elvis MCH (RBC) [Entitic mass] 30.1 pg Normal 25.9-34.0 [facility] Comment on above: Performed By: #### C BC ####[facility] Qbckmfbnaw0442 [place] [address]Dr. Farhat Leal MCHC (RBC) [Mass/Vol] 33.7 g/dL Normal 29.9-35.2 [facility] Comment on above: Performed By: #### C BC ####[facility] Ewhgvlledv9[address] [place], [place] [address]Dr. Farhta Leal MCV (RBC) [Entitic vol] 89.3 fL Normal 80.0-94.0 [facility] Comment on above: Performed By: #### C BC ####[facility] Amxbkljhae[address] [place], [place] [address]Dr. Farhat Leal MONO # 0.7 103/ul Normal 0.3-0.8 [facility] Comment on above: Performed By: #### C BC ####[facility] Wrtcbuupvr4[address] [place], [place] [address]Dr. Farhat Leal Monocytes/100 WBC (Bld) 10.8 % Normal 1.7-12.0 [facility] Comment on above: Performed By: #### C BC ####[facility] Ehstntbxho09[address] [place], [place] [address]DrSkylar Leal NEUT # 3.4 103/ul Normal 1.4-6.5 [facility] Comment on above: Performed By: #### C BC ####[facility] Cyszgvangy994[address] [place], [place] [address]DrSkylar Leal Neutrophils/100 WBC (Bld) 50.1 % Normal 43.0-75.0 [facility] Comment on above: Performed By: #### C BC ####[facility] Wkjbreyldu9[address] [place], [place] [address]DrSkylar Leal Platelet mean volume (Bld) [Entitic vol] 10.2 fL Normal 9.5-13.5 [facility] Comment on above: Performed By: #### C BC ####[facility] Dggfcxhwgo9074 [place] [address]Dr. Farhat Leal PLT 190 103/ul Normal 150-450 [facility] Comment on above: Performed By: #### C BC ####[facility] Sazapwplxr8396 [place] [phone]. Farhat Leal RBC 4.12 106/ul Critically low 4.70-6.[address] [facility] Comment on above: Performed By: #### C BC ####[facility] Puvnvfybtn7432 [place] [address]Dr. Farhat Leal WBC 6.8 103/ul Normal 4.0-11.0 [facility] Comment on above: Performed By: #### C BC ####[facility] Yuugunsdhu4351 [place] [address]DrSkylar Leal PROF 14(COMP METB)on 023 Albumin [Mass/Vol] 2.8 g/dL Critically low 3.4-5.[address] [facility] Comment on above: Performed By: #### C MP ####[facility] Dhugpcgjre1034 [place] [address]DrSkylar Leal Albumin/Globulin [Mass ratio] 0.9 {ratio} Normal [facility] Comment on above: Performed By: #### C MP ####[facility] Acfxzdqgvv0745 [place] [address]Dr. Farhat Leal ALP [Catalytic activity/Vol] 66 U/L Normal 46-116 [facility] Comment on above: Performed By: #### C MP ####[facility] Yjbcqwaosg9254 [place] [address]DrSkylar Leal ALT [Catalytic activity/Vol] 15 U/L Critically low 16-63 [facility] Comment on above: Performed By: #### C MP ####[facility] Dpywcwiiya5213 [place] [phone] Leal Anion gap [Moles/Vol] 11.1 mmol/L Normal Th [facility] Comment on above: Performed By: #### C MP ####[facility] Wdwrdzifbv2127 [place] [address]Dr. Farhat Leal AST [Catalytic activity/Vol] 14 U/L Critically low 15-37 [facility] Comment on above: Performed By: #### C MP ####[facility] Txhcejbsrg4355 [place] [phone]. Farhat Leal Bilirubin [Mass/Vol] 0.8 mg/dL Normal 0.2-1.0 [facility] Comment on above: Performed By: #### C MP ####[facility] Ncftycijef4[address] [place], [place] [address]Dr. Farhat Leal Calcium [Mass/Vol] 8.9 mg/dL Normal 8.5-10.1 [facility] Comment on above: Performed By: #### C MP ####[facility] Sfvoiqivyk[address] [place], [place] [address]Dr. Farhat Leal Chloride [Moles/Vol] 101 mmol/L Normal 98-107 [facility] Comment on above: Performed By: #### C MP ####[facility] Taimoqbvyq7[address] [place], [place] [address]Dr. Farhat Leal CO2 [Moles/Vol] 28.2 mmol/L Normal 21.0-32.0 [facility] Comment on above: Performed By: #### C MP ####[facility] Ayecteqddj607[address] [place], [place] [address]Dr. Farhat Elvis Creatinine [Mass/Vol] 1.23 mg/dL Normal 0.70-1.30 [facility] Comment on above: Performed By: #### C MP ####[facility] Htlbfomdmq1380 [place] [address]Dr. Farhat Leal EGFR-AF KYRGYZ >60 Normal >=60 [facility] Comment on above: Performed By: #### C MP ####[facility] Gxzkvskuru7181 [place] [address]Dr. Farhat Leal EGFR-NON AF KYRGYZ 57 mL/min/1.73m2 Critically low >=60 [facility] Comment on above: Performed By: #### C MP ####[facility] Ytorknzjwo2673 [place] [address]Dr. Farhat Leal Globulin (S) [Mass/Vol] 3.2 g/dL Normal [facility] Comment on above: Performed By: #### C MP ####[facility] Ecgumdopye0988 [place] [address]Dr. Farhat Leal Glucose [Mass/Vol] 333 mg/dL Critically high 74-106 [facility] Comment on above: Performed By: #### C MP ####[facility] Nnybactqhn0144 [place] [address]Dr. Farhat Leal Potassium [Moles/Vol] 4.3 mmol/L Normal 3.5-5.1 [facility] Comment on above: Performed By: #### C MP ####[facility] Jrlloiotnr0808 [place] [address]Dr. Farhat Leal Protein [Mass/Vol] 6.0 g/dL Critically low 6.4-8.2 Th [facility] Comment on above: Performed By: #### C MP ####[facility] Rhyoifonzo8[address] [place], [place] [address]Dr. Farhat Leal Sodium [Moles/Vol] 136 mmol/L Normal 136-145 [facility] Comment on above: Performed By: #### C MP ####[facility] Xnnqiynacu8096 [place] [address]Dr. Farhat Leal Urea nitrogen [Mass/Vol] 58.0 mg/dL Critically high 7.0-18.0 [facility] Comment on above: Performed By: #### C MP ####[facility] Eaiuyxnvqh2759 [place] [address]Dr. Farhat Leal Urea nitrogen/Creatinine [Mass ratio] 47.2 mg/mg Normal [facility] Comment on above: Performed By: #### C MP ####[facility] Nuqshaacmg2520 [place] [address]Dr. Farhat Elvis PROTIMEon 05-13-2022 INR Coag (PPP) [Relative time] 3.51 {INR} Normal [facility] Comment on above: Performed By: #### P T ####[facility] Lpuodefwur7758 [place] [address]Dr. Farhat Leal INR GUIDELINES SEE BELOW Normal [facility] Comment on above: Result Comment: MALINA RED INR: 2.0 - 3.0 CONDITIONS NOT LISTED BELOW 2.5 - 3.5 FOR PROSTHETIC HEART VALVE REPLACEMENT 2.5 - 3.5 RECURRENT THROMBOSIS Performed By: #### P T ####[facility] Eucvnahohf[address] [place], [place] [address]Dr. Farhat Leal PT Coag (PPP) [Time] 34.7 s Critically high 9.0-11.6 [facility] Comment on above: Performed By: #### P T ####[facility] Snkvhhnmdd166[address] [place], [place] [address]Dr. Farhat Leal FK506 (TACROLIMUS) WHOLE BLO ODon 05-11-2022 Tacrolimus (FK506), Blood 14.4 ng/mL Normal 2.0-20.0 [facility] Comment on above: Result Comment: Trou gh (immediately following transplant) 15.0 . Trough (steady state, 2 weeks or more after transplant): 3.0 - 8.0 . Performed by LC-MS/MS technology. Performed By: #### F K506T ####[facility] Jcixqrfwqm099[address] [place], [place] [address]Dr. Farhat Leal CBC AUTO DIFFon 05-08-2022 BASO # 0.0 103/ul Normal 0.0-0.1 [facility] Comment on above: Performed By: #### C BC ####[facility] Ovrqulcppj70[address] [place], [place] [address]Dr. Farhat Leal Basophils/100 WBC (Bld) 0.5 % Normal 0.2-2.0 [facility] Comment on above: Performed By: #### C BC ####[facility] Uqronhsasz0010 [place] [address]Dr. Farhat Leal EO # 0.2 103/ul Normal 0.0-0.7 [facility] Comment on above: Performed By: #### C BC ####[facility] Advujgbngz9231 [place] [phone]. Farhat Leal Eosinophils/100 WBC (Bld) 2.9 % Normal 0.9-7.0 [facility] Comment on above: Performed By: #### C BC ####[facility] Untlaxqcjp5225 [place] [address]Dr. Farhat Leal Erythrocyte distribution width (RBC) [Ratio] 16.0 % Critically high 11.0-15.0 [facility] Comment on above: Performed By: #### C BC ####[facility] Vjicntksyp23[address] [place], [place] [address]Dr. Farhat Leal Hematocrit (Bld) [Volume fraction] 35.7 % Critically low 42.0-54.0 [facility] Comment on above: Performed By: #### C BC ####[facility] Spzpblmzng[address] [place], [place] [address]Dr. Farhat Leal Hemoglobin (Bld) [Mass/Vol] 11.9 g/dL Critically low 14.0-18.0 [facility] Comment on above: Performed By: #### C BC ####[facility] Niehazzeow[address] [place], [place] [address]Dr. Farhat Leal IG # 0.03 10e3/ul Normal 0.00-0.03 [facility] Comment on above: Performed By: #### C BC ####[facility] Xyoukhvmkl229[address] [place], [place] [address]Dr. Farhat Leal IG % 0.5 % Normal 0.0-0.5 [facility] Comment on above: Performed By: #### C BC ####[facility] Ffetodgger74[address] [place], [place] [address]Dr. Farhat Leal LYMPH # 2.4 103/ul Normal 1.2-3.8 [facility] Comment on above: Performed By: #### C BC ####[facility] Dxtyhmhznm9527[address] [place], [place] [address]Dr. Farhat Leal Lymphocytes/100 WBC (Bld) 37.8 % Normal 20.5-60.0 [facility] Comment on above: Performed By: #### C BC ####[facility] Bwulhkyhnw7615 [place] [phone]. Farhat Leal MANUAL DIFF REQ NO Normal [facility] Comment on above: Performed By: #### C BC ####[facility] Ofuunvusfp5852 [place] [phone]. Farhat Leal MCH (RBC) [Entitic mass] 30.4 pg Normal 25.9-34.0 [facility] Comment on above: Performed By: #### C BC ####[facility] Vchlqnlbyb[address] [place], [place] [address]Dr. Farhat Leal MCHC (RBC) [Mass/Vol] 33.3 g/dL Normal 29.9-35.2 [facility] Comment on above: Performed By: #### C BC ####[facility] Vozmvopawh[address] [place], [place] [address]Dr. Farhat Leal MCV (RBC) [Entitic vol] 91.1 fL Normal 80.0-94.0 [facility] Comment on above: Performed By: #### C BC ####[facility] Cqpwxegaog15[address] [place], [place] [address]Dr. Farhat Leal MONO # 0.7 103/ul Normal 0.3-0.8 [facility] Comment on above: Performed By: #### C BC ####[facility] Mgstezmpmu[address] [address] [place], [place] [address]Dr. Farhat Leal Monocytes/100 WBC (Bld) 11.1 % Normal 1.7-12.0 [facility] Comment on above: Performed By: #### C BC ####[facility] K[address]ocprsqu[address] [place], [place] [id number]. Farhat Leal NEUT # 2.9 103/ul Normal 1.4-6.5 [facility] Comment on above: Performed By: #### C BC ####[facility] Rhnbikpuyg[address] [place], [place] [address]Dr. Farhat Leal Neutrophils/100 WBC (Bld) 47.2 % Normal 43.0-75.0 [facility] Comment on above: Performed By: #### C BC ####[facility] [address]tfr[address] [place] [phone]. Farhat Leal Platelet mean volume (Bld) [Entitic vol] 11.0 fL Normal 9.5-13.5 [facility] Comment on above: Performed By: #### C BC ####[facility] Ts[address] [place] [phone]. Farhat Leal PLT 191 103/ul Normal 150-450 [facility] Comment on above: Performed By: #### C BC ####[facility] Qymvawchql29[address] [place] [phone]. Farhat Leal RBC 3.92 106/ul Critically low 4.70-6.[address] [facility] Comment on above: Performed By: #### C BC ####[facility] [address]vff[address]of[address] [place] [address]Dr. Madelynlorri Elvis WBC 6.2 103/ul Normal 4.0-11.0 [facility] Comment on above: Performed By: #### C BC ####[facility] Wcrqbqothg[address] [place], [place] [address]Dr. Farhat Elvis MAGNESIUMon 05-08-2022 Magnesium [Mass/Vol] 1.9 mg/dL Normal 1.8-2.4 [facility] Comment on above: Performed By: #### P HOS, MG ####[facility] V[address]zuzmfu[address] [place] [address]Dr. Farhat Elvis PHOSPHORUSon 05-08-2022 Phosphate [Mass/Vol] 4.5 mg/dL Normal 2.6-4.7 [facility] Comment on above: Performed By: #### P HOS, MG ####[facility] Ytqeqdgbob38[address] [place] [address]Dr. Farhat Leal PROF 14(COMP METB)on 023 Albumin [Mass/Vol] 2.9 g/dL Critically low 3.4-5.0 [facility] Comment on above: Performed By: #### C MP ####[facility] Mlfougmshr[address] [place], [place] [address]Dr. Farhat Leal Albumin/Globulin [Mass ratio] 0.9 {ratio} Normal [facility] Comment on above: Performed By: #### C MP ####[facility] Qokdsorepx3434 [place] [address]Dr. Farhat Elvis ALP [Catalytic activity/Vol] 70 U/L Normal 46-116 [facility] Comment on above: Performed By: #### C MP ####[facility] Assxvvuhly48[address] [place] [address]Dr. Farhat Elvis ALT [Catalytic activity/Vol] 13 U/L Critically low 16-63 [facility] Comment on above: Performed By: #### C MP ####[facility] Pfztnxonac[address] [place], [place] [address]Dr. Farhat Leal Anion gap [Moles/Vol] 14.6 mmol/L Normal [facility] Comment on above: Performed By: #### C MP ####[facility] Cldwmzviyl[address] [place], [place] [address]Dr. Farhat Leal AST [Catalytic activity/Vol] 17 U/L Normal 15-37 [facility] Comment on above: Performed By: #### C MP ####[facility] Oassuuczzl[address] [place], [place] [address]Dr. Farhat Leal Bilirubin [Mass/Vol] 0.8 mg/dL Normal 0.2-1.0 [facility] Comment on above: Performed By: #### C MP ####[facility] Xfbtgtfsxl9[address] [place], [place] [address]Dr. Farhat Leal Calcium [Mass/Vol] 8.9 mg/dL Normal 8.5-10.1 [facility] Comment on above: Performed By: #### C MP ####[facility] Txahupjhli[address] [place], [place] [address]Dr. Farhat Leal Chloride [Moles/Vol] 102 mmol/L Normal 98-107 [facility] Comment on above: Performed By: #### C MP ####[facility] Nunahwugio[address] [place], [place] [address]Dr. Farhat Leal CO2 [Moles/Vol] 22.9 mmol/L Normal 21.0-32.0 [facility] Comment on above: Performed By: #### C MP ####[facility] Xazdppocwf9[address] [place] [phone]. Farhat Leal Creatinine [Mass/Vol] 1.20 mg/dL Normal 0.70-1.30 [facility] Comment on above: Performed By: #### C MP ####[facility] Lhqwnwocfo4[address] [place] [phone]. Farhat Elvis EGFR-AF KYRGYZ >60 Normal >=60 [facility] Comment on above: Performed By: #### C MP ####[facility] Dqzipdbqyy2012 [place] [phone]. Farhat Elvis EGFR-NON AF KYRGYZ 59 mL/min/1.73m2 Critically low >=60 [facility] Comment on above: Performed By: #### C MP ####[facility] Ksswgevhkw7[address] [place], [place] [address]Dr. Madelynlorri Leal Globulin (S) [Mass/Vol] 3.1 g/dL Normal [facility] Comment on above: Performed By: #### C MP ####[facility] Wdxwfcjkwq6[address] [place], [place] [address]Dr. Farhat Elvis Glucose [Mass/Vol] 447 mg/dL Critically high 74-106 T [facility] Comment on above: Performed By: #### C MP ####[facility] Vgczqcvlvx98[address] [place] [address]Dr. Farhat Leal Potassium [Moles/Vol] 4.5 mmol/L Normal 3.5-5.1 [facility] Comment on above: Performed By: #### C MP ####[facility] Qsoxiuyeoc1669 [place] [address]Dr. Farhat Leal Protein [Mass/Vol] 6.0 g/dL Critically low 6.4-8.2 Th [facility] Comment on above: Performed By: #### C MP ####[facility] Faxrzbtlxn1439 [place] [address]Dr. Farhat Leal Sodium [Moles/Vol] 135 mmol/L Critically low 136-145 Th [facility] Comment on above: Performed By: #### C MP ####[facility] Rpvyhjoubf3841 [place] [address]Dr. Farhat Leal Urea nitrogen [Mass/Vol] 52.0 mg/dL Critically high 7.0-18.0 [facility] Comment on above: Performed By: #### C MP ####[facility] Sbaqnekwrg33[address] [place], [place] [address]Dr. Farhat Leal Urea nitrogen/Creatinine [Mass ratio] 43.3 mg/mg Normal [facility] Comment on above: Performed By: #### C MP ####[facility] Jyhreaftkj020[address] [place], [place] [address]Dr. Farhat Leal PROTIMEon 05-06-2022 INR Coag (PPP) [Relative time] 2.25 {INR} Normal [facility] Comment on above: Performed By: #### P T ####[facility] Tntshuxhrb9[address] [place], [place] [address]Dr. Farhat Leal INR GUIDELINES SEE BELOW Normal [facility] Comment on above: Result Comment: MALINA RED INR: 2.0 - 3.0 CONDITIONS NOT LISTED BELOW 2.5 - 3.5 FOR PROSTHETIC HEART VALVE REPLACEMENT 2.5 - 3.5 RECURRENT THROMBOSIS Performed By: #### P T ####[facility] Qnjsrwnesz[address] [place], [place] [address]Dr. Farhat Leal PT Coag (PPP) [Time] 22.8 s Critically high 9.0-11.6 [facility] Comment on above: Performed By: #### P T ####[facility] Fprvakthei46224[address] [place], [place] [address]Dr. Farhat Leal FK506 (TACROLIMUS) WHOLE BLO ODon 05-04-2022 Tacrolimus (FK506), Blood 10.4 ng/mL Normal 2.0-20.0 [facility] Comment on above: Result Comment: Trou gh (immediately following transplant) 15.0 . Trough (steady state, 2 weeks or more after transplant): 3.0 - 8.0 . Performed by LC-MS/MS technology. Performed By: #### F K506T ####[facility] Utbzgetedo[address] [place] [address]Dr. Farhat Leal CBC AUTO DIFFon 05-01-2022 BASO # 0.1 103/ul Normal 0.0-0.1 [facility] Comment on above: Performed By: #### C BC ####[facility] Ffvtsmxdzq3794 [place] [address]Dr. Farhat Leal Basophils/100 WBC (Bld) 0.7 % Normal 0.2-2.0 [facility] Comment on above: Performed By: #### C BC ####[facility] Dtubuqmvmd71[address] [place], [place] [address]Dr. Farhat Leal EO # 0.2 103/ul Normal 0.0-0.7 [facility] Comment on above: Performed By: #### C BC ####[facility] Zezvwumubg88[address] [place], [place] [address]Dr. Farhat Leal Eosinophils/100 WBC (Bld) 3.2 % Normal 0.9-7.0 [facility] Comment on above: Performed By: #### C BC ####[facility] Dwcsvtsczq16[address] [place], [place] [address]Dr. Farhat Leal Erythrocyte distribution width (RBC) [Ratio] 16.4 % Critically high 11.0-15.0 [facility] Comment on above: Performed By: #### C BC ####[facility] Ndnwvobtgq[address] [place], [place] [address]Dr. Farhat Leal Hematocrit (Bld) [Volume fraction] 35.1 % Critically low 42.0-54.0 [facility] Comment on above: Performed By: #### C BC ####[facility] Wdriugokch[address] [place], [place] [address]Dr. Farhat Leal Hemoglobin (Bld) [Mass/Vol] 11.6 g/dL Critically low 14.0-18.0 [facility] Comment on above: Performed By: #### C BC ####[facility] Jawiqnncqb[address] [place], [place] [address]Dr. Farhat Leal IG # 0.03 10e3/ul Normal 0.00-0.03 [facility] Comment on above: Performed By: #### C BC ####[facility] Ofsksuksom24[address] [place] [phone]. Farhat Leal IG % 0.4 % Normal 0.0-0.5 [facility] Comment on above: Performed By: #### C BC ####[facility] Rpjsiofxht6283 [place] [phone]. Farhat Leal LYMPH # 2.4 103/ul Normal 1.2-3.8 [facility] Comment on above: Performed By: #### C BC ####[facility] Nmusjeolez2598 [place] [phone]. Farhat Leal Lymphocytes/100 WBC (Bld) 35.1 % Normal 20.5-60.0 [facility] Comment on above: Performed By: #### C BC ####[facility] Kqgsqzkszw3027 [place] [phone]. Farhat Leal MANUAL DIFF REQ NO Normal [facility] Comment on above: Performed By: #### C BC ####[facility] Bypmzbvmlo9501 [place] [phone]. Farhat Leal MCH (RBC) [Entitic mass] 29.4 pg Normal 25.9-34.0 [facility] Comment on above: Performed By: #### C BC ####[facility] Qchjesqbqu4349 [place] [phone]. Farhat Leal MCHC (RBC) [Mass/Vol] 33.0 g/dL Normal 29.9-35.2 [facility] Comment on above: Performed By: #### C BC ####[facility] [address]lc[address] [place], [place] [phone]. Farhat Leal MCV (RBC) [Entitic vol] 88.9 fL Normal 80.0-94.0 [facility] Comment on above: Performed By: #### C BC ####[facility] Ihgtkblksx8816 [place] [phone]. Farhat Elvis MONO # 0.7 103/ul Normal 0.3-0.8 [facility] Comment on above: Performed By: #### C BC ####[facility] Rqvssortce0422 [place] [phone]. Farhat Leal Monocytes/100 WBC (Bld) 9.6 % Normal 1.7-12.0 [facility] Comment on above: Performed By: #### C BC ####[facility] Evzuynfbis4456 [place] [phone]. Farhat Leal NEUT # 3.5 103/ul Normal 1.4-6.5 [facility] Comment on above: Performed By: #### C BC ####[facility] Jzqpkigwea9718 [place] [phone]. Farhat Leal Neutrophils/100 WBC (Bld) 51.0 % Normal 43.0-75.0 [facility] Comment on above: Performed By: #### C BC ####[facility] Rdteyvdhzk2912 [place] [phone]. Farhat Leal Platelet mean volume (Bld) [Entitic vol] 10.3 fL Normal 9.5-13.5 [facility] Comment on above: Performed By: #### C BC ####[facility] Guwqooymof7[address] [place] [phone]. Farhat Leal PLT 184 103/ul Normal 150-450 [facility] Comment on above: Performed By: #### C BC ####[facility] Nwwveszecb1314 [place] [phone]. Farhat Leal RBC 3.95 106/ul Critically low 4.70-6.10 [facility] Comment on above: Performed By: #### C BC ####[facility] Mlxmzhvrtk5265 [place] [phone]. Farhat Leal WBC 7.0 103/ul Normal 4.0-11.0 [facility] Comment on above: Performed By: #### C BC ####[facility] Yxspvbwvnl4902 [place] [phone]. Farhat Leal PROF 14(COMP METB)on 023 Albumin [Mass/Vol] 2.6 g/dL Critically low 3.4-5.[address] [facility] Comment on above: Performed By: #### C MP ####[facility] Sposoylitv9539 [place] [phone]. Farhat Elvis Albumin/Globulin [Mass ratio] 0.9 {ratio} Normal [facility] Comment on above: Performed By: #### C MP ####[facility] Zhnqkbzkby3233 [place] [phone]. Madelynlorri Leal ALP [Catalytic activity/Vol] 53 U/L Normal 46-116 [facility] Comment on above: Performed By: #### C MP ####[facility] Dlqfbpyawy9817 [place] [address]Dr. Farhat Elvis ALT [Catalytic activity/Vol] 17 U/L Normal 16-63 [facility] Comment on above: Performed By: #### C MP ####[facility] Tmoyaitybx[address] [place], [place] [address]Dr. Farhat Leal Anion gap [Moles/Vol] 10.0 mmol/L Normal [facility] Comment on above: Performed By: #### C MP ####[facility] Yratmfishi[address] [place], [place] [address]Dr. Farhat Elvis AST [Catalytic activity/Vol] 19 U/L Normal 15-37 [facility] Comment on above: Performed By: #### C MP ####[facility] Ovpstgmwxj274[address] [place], [place] [address]Dr. Farhat Leal Bilirubin [Mass/Vol] 0.5 mg/dL Normal 0.2-1.0 [facility] Comment on above: Performed By: #### C MP ####[facility] Gchtppnyra96[address] [place], [place] [address]Dr. Farhat Leal Calcium [Mass/Vol] 8.4 mg/dL Critically low 8.5-10.[address] [facility] Comment on above: Performed By: #### C MP ####[facility] Hgbtvulvac[address] [place], [place] [address]Dr. Farhat Leal Chloride [Moles/Vol] 108 mmol/L Critically high 98-107 [facility] Comment on above: Performed By: #### C MP ####[facility] Jzcngtmkvq0953 [place] [phone]. Farhat Leal CO2 [Moles/Vol] 26.9 mmol/L Normal 21.0-32.0 [facility] Comment on above: Performed By: #### C MP ####[facility] Hsgjdxiyfa9695 [place] [phone]. Farhat Leal Creatinine [Mass/Vol] 1.20 mg/dL Normal 0.70-1.30 [facility] Comment on above: Performed By: #### C MP ####[facility] Bpyawxzqoh5710 [place] [phone]. Farhat Leal EGFR-AF KYRGYZ >60 Normal >=60 [facility] Comment on above: Performed By: #### C MP ####[facility] Krgqadrsnf8439 [place] [address]Dr. Farhat Elvis EGFR-NON AF KYRGYZ 59 mL/min/1.73m2 Critically low >=60 [facility] Comment on above: Performed By: #### C MP ####[facility] Ksonrhpyym3185 [place] [address]Dr. Farhat Elvis Globulin (S) [Mass/Vol] 3.0 g/dL Normal [facility] Comment on above: Performed By: #### C MP ####[facility] Jjcqwrvmgt8263 [place] [address]Dr. Farhat Leal Glucose [Mass/Vol] 213 mg/dL Critically high 74-106 T [facility] Comment on above: Performed By: #### C MP ####[facility] Jgtxwxxtmw3108 [place] [address]Dr. Farhat Leal Potassium [Moles/Vol] 3.9 mmol/L Normal 3.5-5.1 [facility] Comment on above: Performed By: #### C MP ####[facility] Vlqgvlskcb0279 [place] [address]Dr. Farhat Leal Protein [Mass/Vol] 5.6 g/dL Critically low 6.4-8.2 [facility] Comment on above: Performed By: #### C MP ####[facility] Xdbxkuxnhi7917 [place] [address]Dr. Madelynlorri Leal Sodium [Moles/Vol] 141 mmol/L Normal 136-145 [facility] Comment on above: Performed By: #### C MP ####[facility] Tiybzfmsdc18[address] [place], [place] [address]Dr. Farhat Elvis Urea nitrogen [Mass/Vol] 61.0 mg/dL Critically high 7.0-18.0 [facility] Comment on above: Performed By: #### C MP ####[facility] Nwjyrmzjaw[address] [place], [place] [address]Dr. Farhat Leal Urea nitrogen/Creatinine [Mass ratio] 50.8 mg/mg Normal [facility] Comment on above: Performed By: #### C MP ####[facility] Wtfzjbqspa96[address] [place], [place] [address]Dr. Farhat Leal FK506 (TACROLIMUS) WHOLE BLO ODon 04-27-2022 Tacrolimus (FK506), Blood 16.5 ng/mL Normal 2.0-20.0 [facility] Comment on above: Result Comment: Trou gh (immediately following transplant) 15.0 . Trough (steady state, 2 weeks or more after transplant): 3.0 - 8.0 . Performed by LC-MS/MS technology. Performed By: #### F K506T ####[facility] Hyhtcyyqtp17[address] [place], [place] [address]Dr. Madelynlorri Leal CBC AUTO DIFFon 04-24-2022 BASO # 0.0 103/ul Normal 0.0-0.1 [facility] Comment on above: Performed By: #### C BC ####[facility] Scvynwlybc83[address] [place], [place] [address]Dr. Farhat Leal Basophils/100 WBC (Bld) 0.5 % Normal 0.2-2.0 [facility] Comment on above: Performed By: #### C BC ####[facility] Yfzntecaxz4[address] [place], [place] [address]Dr. Farhat Leal EO # 0.2 103/ul Normal 0.0-0.7 [facility] Comment on above: Performed By: #### C BC ####[facility] Dyuvudqgga7569 [place] [phone]. Farhat Leal Eosinophils/100 WBC (Bld) 3.1 % Normal 0.9-7.0 [facility] Comment on above: Performed By: #### C BC ####[facility] Nivgbbxfwt3601 [place] [address]Dr. Farhat Leal Erythrocyte distribution width (RBC) [Ratio] 16.3 % Critically high 11.0-15.0 [facility] Comment on above: Performed By: #### C BC ####[facility] Rejcmlyisc[address] [place], [place] [address]Dr. Farhat Leal Hematocrit (Bld) [Volume fraction] 34.0 % Critically low 42.0-54.0 [facility] Comment on above: Performed By: #### C BC ####[facility] Fbrxzdydin07[address] [place], [place] [address]Dr. Farhat Leal Hemoglobin (Bld) [Mass/Vol] 11.6 g/dL Critically low 14.0-18.0 [facility] Comment on above: Performed By: #### C BC ####[facility] Wrxjrhasvi29[address] [place], [place] [address]Dr. Farhat Leal IG # 0.02 10e3/ul Normal 0.00-0.03 [facility] Comment on above: Performed By: #### C BC ####[facility] Kfyenhatee230[address] [place], [place] [address]Dr. Farhat Leal IG % 0.4 % Normal 0.0-0.5 [facility] Comment on above: Performed By: #### C BC ####[facility] Tqpskbexhn7[address] [place], [place] [address]Dr. Farhat Leal LYMPH # 2.2 103/ul Normal 1.2-3.8 [facility] Comment on above: Performed By: #### C BC ####[facility] Qudrrtefsg[address] [place], [place] [address]Dr. Farhat Leal Lymphocytes/100 WBC (Bld) 38.8 % Normal 20.5-60.0 [facility] Comment on above: Performed By: #### C BC ####[facility] Ikakuwakyf6553 [place] [phone]. Farhat Leal MANUAL DIFF REQ NO Normal [facility] Comment on above: Performed By: #### C BC ####[facility] Txbkpdcwtg[address] [place] [phone]. Farhat Leal MCH (RBC) [Entitic mass] 30.1 pg Normal 25.9-34.0 [facility] Comment on above: Performed By: #### C BC ####[facility] Mwmpxkkqne484[address] [place], [place] [address]Dr. Farhat Leal MCHC (RBC) [Mass/Vol] 34.1 g/dL Normal 29.9-35.2 [facility] Comment on above: Performed By: #### C BC ####[facility] Bocaxzvdpy9[address] [place], [place] [address]Dr. Farhat Leal MCV (RBC) [Entitic vol] 88.1 fL Normal 80.0-94.0 [facility] Comment on above: Performed By: #### C BC ####[facility] Dzuwykxzww18[address] [place], [place] [address]Dr. Farhat Leal MONO # 0.6 103/ul Normal 0.3-0.8 [facility] Comment on above: Performed By: #### C BC ####[facility] Qeadbqhrjd[address] [place], [place] [address]Dr. Farhat Elvis Monocytes/100 WBC (Bld) 10.8 % Normal 1.7-12.0 [facility] Comment on above: Performed By: #### C BC ####[facility] Vphnuvchic[address] [place], [place] [address]Dr. Farhat Leal NEUT # 2.6 103/ul Normal 1.4-6.5 [facility] Comment on above: Performed By: #### C BC ####[facility] Dntirbgjpl024[address] [place], [place] [address]Dr. Farhat Leal Neutrophils/100 WBC (Bld) 46.4 % Normal 43.0-75.0 [facility] Comment on above: Performed By: #### C BC ####[facility] Bdrgykhnhb2983 [place] [phone]. Farhat Leal Platelet mean volume (Bld) [Entitic vol] 10.9 fL Normal 9.5-13.5 [facility] Comment on above: Performed By: #### C BC ####[facility] Jxcynxryjk5135 [place] [phone]. Madelynlorri Leal PLT 159 103/ul Normal 150-450 [facility] Comment on above: Performed By: #### C BC ####[facility] Qdjmlckicd7248 [place] [phone]. Farhat Leal RBC 3.86 106/ul Critically low 4.70-6.[address] [facility] Comment on above: Performed By: #### C BC ####[facility] Yrzdoffqnu9756 [place] [address]Dr. Farhat Leal WBC 5.6 103/ul Normal 4.0-11.0 [facility] Comment on above: Performed By: #### C BC ####[facility] Wqizemircn4685 [place] [address]Dr. Farhat Leal PROTIMEon 04-24-2022 INR Coag (PPP) [Relative time] 3.23 {INR} Normal [facility] Comment on above: Performed By: #### P T ####[facility] Sltnjeqbcv25[address] [place], [place] [address]DrSkylar Leal INR GUIDELINES SEE BELOW Normal [facility] Comment on above: Result Comment: MALINA RED INR: 2.0 - 3.0 CONDITIONS NOT LISTED BELOW 2.5 - 3.5 FOR PROSTHETIC HEART VALVE REPLACEMENT 2.5 - 3.5 RECURRENT THROMBOSIS Performed By: #### P T ####[facility] Lrcejsslil8[address] [place], [place] [address]DrSkylar Leal PT Coag (PPP) [Time] 32.0 s Critically high 9.0-11.6 [facility] Comment on above: Performed By: #### P T ####[facility] Qwzrxanwrt4[address] [place], [place] [address]DrSkylar Leal FK506 (TACROLIMUS) WHOLE BLO ODon 04-20-2022 Tacrolimus (FK506), Blood 13.9 ng/mL Normal 2.0-20.0 [facility] Comment on above: Result Comment: Trou gh (immediately following transplant) 15.0 . Trough (steady state, 2 weeks or more after transplant): 3.0 - 8.0 . Performed by LC-MS/MS technology. Performed By: #### F K506T ####[facility] Edxsktmych[address] [place], [place] [address]DrSkylar Leal CBC AUTO DIFFon 04-17-2022 BASO # 0.0 103/ul Normal 0.0-0.1 [facility] Comment on above: Performed By: #### C BC ####[facility] Gheikketls98[address] [place], [place] [address]DrSkylar Leal Basophils/100 WBC (Bld) 0.4 % Normal 0.2-2.0 [facility] Comment on above: Performed By: #### C BC ####[facility] Fdxbbctbkg66[address] [place], [place] [address]DrSkylar Leal EO # 0.2 103/ul Normal 0.0-0.7 [facility] Comment on above: Performed By: #### C BC ####[facility] Bdmmwrztex[address] [place], [place] [address]DrSkylar Leal Eosinophils/100 WBC (Bld) 2.8 % Normal 0.9-7.0 [facility] Comment on above: Performed By: #### C BC ####[facility] Vfdaacblol12[address] [place], [place] [address]DrSkylar Leal Erythrocyte distribution width (RBC) [Ratio] 16.1 % Critically high 11.0-15.0 [facility] Comment on above: Performed By: #### C BC ####[facility] Eoiuotwmmi[address] [place], [place] [address]DrSkylar Leal Hematocrit (Bld) [Volume fraction] 35.7 % Critically low 42.0-54.0 [facility] Comment on above: Performed By: #### C BC ####[facility] Qontxrlsdw06[address] [place], [place] [address]Dr. Farhat Leal Hemoglobin (Bld) [Mass/Vol] 12.2 g/dL Critically low 14.0-18.0 [facility] Comment on above: Performed By: #### C BC ####[facility] [address] [place] [address]Dr. Farhat Leal IG # 0.03 10e3/ul Normal 0.00-0.03 [facility] Comment on above: Performed By: #### C BC ####[facility] [address]aqx[address] [place] [address]Dr. Farhat Leal IG % 0.4 % Normal 0.0-0.5 [facility] Comment on above: Performed By: #### C BC ####[facility] [address] [place], [place] [address]DrSkylar Leal LYMPH # 2.4 103/ul Normal 1.2-3.8 [facility] Comment on above: Performed By: #### C BC ####[facility] Mwymnktrdb[address] [place], [place] [address]Dr. Farhat Leal Lymphocytes/100 WBC (Bld) 36.1 % Normal 20.5-60.0 [facility] Comment on above: Performed By: #### C BC ####[facility] Xdunscgvls[address] [place], [place] [address]DrSkylar Leal MANUAL DIFF REQ NO Normal [facility] Comment on above: Performed By: #### C BC ####[facility] Mzewaogyvy[address] [place], [place] [address]DrSkylar Leal MCH (RBC) [Entitic mass] 30.3 pg Normal 25.9-34.0 [facility] Comment on above: Performed By: #### C BC ####[facility] Tfcqawlpex[address] [place], [place] [address]Dr. Farhat Leal MCHC (RBC) [Mass/Vol] 34.2 g/dL Normal 29.9-35.2 [facility] Comment on above: Performed By: #### C BC ####[facility] [address]oruzlbq[address] [place], [place] [address]DrSkylar Leal MCV (RBC) [Entitic vol] 88.6 fL Normal 80.0-94.0 [facility] Comment on above: Performed By: #### C BC ####[facility] [address] [place] [address]DrSkylar Farhat Leal MONO # 0.7 103/ul Normal 0.3-0.8 [facility] Comment on above: Performed By: #### C BC ####[facility] Duscdzcqmd[address] [place], [place] [address]DrSkylar Farhat Leal Monocytes/100 WBC (Bld) 10.1 % Normal 1.7-12.0 [facility] Comment on above: Performed By: #### C BC ####[facility] Suacehbjds[address] [place], [place] [address]DrSkylar Farhat Leal NEUT # 3.4 103/ul Normal 1.4-6.5 [facility] Comment on above: Performed By: #### C BC ####[facility] Zawpsqcqur[address] [place], [place] [address]DrSkylar Farhat Leal Neutrophils/100 WBC (Bld) 50.2 % Normal 43.0-75.0 [facility] Comment on above: Performed By: #### C BC ####[facility] T[address]wrudayj[address] [place], [place] [address]DrSkylar Farhat Elvis Platelet mean volume (Bld) [Entitic vol] 11.8 fL Normal 9.5-13.5 [facility] Comment on above: Performed By: #### C BC ####[facility] Vnechlapnv[address] [place], [place] [address]Dr. Farhat Elvis PLT 193 103/ul Normal 150-450 [facility] Comment on above: Performed By: #### C BC ####[facility] Ohrwfbqcux[address] [place], [place] [id number] Joshilorri Elvis RBC 4.03 106/ul Critically low 4.70-6.10 [facility] Comment on above: Performed By: #### C BC ####[facility] Dwzuxuanow[address] [place], [place] [id number] Joshilorri Leal WBC 6.8 103/ul Normal 4.0-11.0 [facility] Comment on above: Performed By: #### C BC ####[facility] Rslutqjmoc[address] [place], [place] [address]Dr. Farhat Leal PROF 14(COMP METB)on 023 Albumin [Mass/Vol] 2.9 g/dL Critically low 3.4-5.[address] [facility] Comment on above: Performed By: #### C MP ####[facility] Chnjgqjrmd[address] [place], [place] [address]Dr. Farhat Leal Albumin/Globulin [Mass ratio] 0.9 {ratio} Normal [facility] Comment on above: Performed By: #### C MP ####[facility] Bfqjngwqmj[address] [place], [place] [address]Dr. Farhat Leal ALP [Catalytic activity/Vol] 67 U/L Normal 46-116 [facility] Comment on above: Performed By: #### C MP ####[facility] Rknsyjuqyg[address] [place], [place] [address]Dr. Farhat Leal ALT [Catalytic activity/Vol] 15 U/L Critically low 16-63 [facility] Comment on above: Performed By: #### C MP ####[facility] Ybggwyzeqy[address] [place], [place] [address]Dr. Farhat Leal Anion gap [Moles/Vol] 10.8 mmol/L Normal [facility] Comment on above: Performed By: #### C MP ####[facility] Boezlaotyf[address] [place], [place] [address]Dr. Farhat Leal AST [Catalytic activity/Vol] 23 U/L Normal 15-37 [facility] Comment on above: Performed By: #### C MP ####[facility] Woobutbcde[address] [place], [place] [address]Dr. Farhat Leal Bilirubin [Mass/Vol] 0.6 mg/dL Normal 0.2-1.0 [facility] Comment on above: Performed By: #### C MP ####[facility] Loflhjgzpl[address] [place], [place] [address]Dr. Farhat Leal Calcium [Mass/Vol] 8.7 mg/dL Normal 8.5-10.1 [facility] Comment on above: Performed By: #### C MP ####[facility] [address] [place] [address]Dr. Farhat Leal Chloride [Moles/Vol] 105 mmol/L Normal 98-107 [facility] Comment on above: Performed By: #### C MP ####[facility] [address]dem[address] [place] [address]Dr. Farhat Leal CO2 [Moles/Vol] 29.5 mmol/L Normal 21.0-32.0 [facility] Comment on above: Performed By: #### C MP ####[facility] Ijorgoxgvr[address] [place], [place] [address]Dr. Farhat Elvis Creatinine [Mass/Vol] 1.37 mg/dL Critically high 0.70-1.30 [facility] Comment on above: Performed By: #### C MP ####[facility] Wghkpdioge[address] [place], [place] [address]Dr. Farhat Elvis EGFR-AF KYRGYZ >60 Normal >=60 [facility] Comment on above: Performed By: #### C MP ####[facility] Roysoccagt[address] [place], [place] [address]Dr. Farhat Elvis EGFR-NON AF KYRGYZ 50 mL/min/1.73m2 Critically low >=60 [facility] Comment on above: Performed By: #### C MP ####[facility] Iaacrlagkd[address] [place], [place] [address]Dr. Farhat Elvis Globulin (S) [Mass/Vol] 3.1 g/dL Normal [facility] Comment on above: Performed By: #### C MP ####[facility] [address] [place] [address]Dr. Farhat Leal Glucose [Mass/Vol] 203 mg/dL Critically high 74-106 [facility] Comment on above: Performed By: #### C MP ####[facility] [address]xqpturi[address] [place] [address]Dr. Farhat Leal Potassium [Moles/Vol] 4.3 mmol/L Normal 3.5-5.1 [facility] Comment on above: Performed By: #### C MP ####[facility] R[address]kb[address] [place] [address]Dr. Farhat Leal Protein [Mass/Vol] 6.0 g/dL Critically low 6.4-8.2 [facility] Comment on above: Performed By: #### C MP ####[facility] Sgronxqtnr[address] [place], [place] [address]Dr. Fahrat Leal Sodium [Moles/Vol] 141 mmol/L Normal 136-145 [facility] Comment on above: Performed By: #### C MP ####[facility] Sqdswinvdl[address] [place], [place] [address]Dr. Farhat Leal Urea nitrogen [Mass/Vol] 65.0 mg/dL Critically high 7.0-18.0 [facility] Comment on above: Performed By: #### C MP ####[facility] J[address]zzvmyaj[address] [place], [place] [address]Dr. Farhat Leal Urea nitrogen/Creatinine [Mass ratio] 47.4 mg/mg Normal [facility] Comment on above: Performed By: #### C MP ####[facility] Tlcvkrxlwc[address] [place], [place] [address]Dr. Farhat Leal PROTIMEon 04-15-2022 INR Coag (PPP) [Relative time] 3.88 {INR} Normal [facility] Comment on above: Performed By: #### P T ####[facility] Yapuoyvav[address] [place], [place] [address]Dr. Farhat Leal INR GUIDELINES SEE BELOW Normal [facility] Comment on above: Result Comment: MALINA RED INR: 2.0 - 3.0 CONDITIONS NOT LISTED BELOW 2.5 - 3.5 FOR PROSTHETIC HEART VALVE REPLACEMENT 2.5 - 3.5 RECURRENT THROMBOSIS Performed By: #### P T ####[facility] [address] [place], [place] [address]Dr. Frahat Leal PT Coag (PPP) [Time] 38.1 s Critically high 9.0-11.6 [facility] Comment on above: Performed By: #### P T ####[facility] [address] [place] [id number]. Farhat Leal Glucose Glucometer (BldC) [M ass/Vol]Ordered By: Sadia Aguilar on 04-14-2022 Glucose [Mass/Vol] 162 mg/dL [facility] Comment on above: Random Glucose Refer ence Range is dependent on time and content of last meal. Glucose of more than 200 mg/dL in a nonstressed, ambulatory subject supports the diagnosis of Diabetes Mellitus. Glucose Poct Glucometerson 0 04-14-2022 Commemt1 Glu2: Cleaned Meter Normal [facility] Comment on above: Result Comment: PERF ORMED BY: [facility] [address] [place] [address] PATHOLOGIST DIAL SCREW ASSEMBLER JOSE F ELLIOTT M.D. Performed By: #### G LULS #### Point of Care testing , Glucose [Mass/Vol] 162 mg/dL Normal [facility] Comment on above: Result Comment: [place] om Glucose Reference Range is dependent on time and content of last meal. Glucose of more than 200 mg/dL in a nonstressed, ambulatory subject supports the diagnosis of Diabetes Mellitus. Performed By: #### G LULS #### Point of Care testing , No Panel InformationOrdered By: Sadia Aguilar on 04-14-2022 Bedside Glucose Comment Glu2: cleaned meter [facility] MAGNESIUMon 04-13-2022 Magnesium [Mass/Vol] 1.7 mg/dL Critically low 1.8-2.4 [facility] Comment on above: Performed By: #### M Anais PHOS ####[facility] [address] [place] [id number]. Farhat Leal PHOSPHORUSon 04-13-2022 Phosphate [Mass/Vol] 4.8 mg/dL Critically high 2.6-4.7 [facility] Comment on above: Performed By: #### M Anais PHOS ####[facility] [address] [place] [id number]. Farhat Leal PROTIMEon 04-13-2022 INR Coag (PPP) [Relative time] 3.16 {INR} Normal [facility] Comment on above: Performed By: #### P T ####[facility] [address] [place] [address]Dr. Farhat Leal INR GUIDELINES SEE BELOW Normal [facility] Comment on above: Result Comment: MALINA RED INR: 2.0 - 3.0 CONDITIONS NOT LISTED BELOW 2.5 - 3.5 FOR PROSTHETIC HEART VALVE REPLACEMENT 2.5 - 3.5 RECURRENT THROMBOSIS Performed By: #### P T ####[facility] [address] [place] [address]Dr. Farhat Leal PT Coag (PPP) [Time] 31.4 s Critically high 9.0-11.6 [facility] Comment on above: Performed By: #### P T ####[facility] [address] [place] [address]Dr. Farhat Leal MAGNESIUMon 03-11-2022 Magnesium [Mass/Vol] 1.6 mg/dL Critically low 1.8-2.4 [facility] Comment on above: Performed By: #### M Anais PHOS ####[facility] [address] [place] [address]Dr. Farhat Leal PHOSPHORUSon 03-11-2022 Phosphate [Mass/Vol] 5.3 mg/dL Critically high 2.6-4.7 [facility] Comment on above: Performed By: #### Demetrice Manzo PHOS ####[facility] [address] [place] [address]DrSkylar Leal CNOVon 02-26-2022 CNOV Office Visit (HONEY ) ALEX ALMONTE ([id number]) 1945 M TRN Date Time Provider Department 02/26/22 3:00 PM KHALIFEH, ALI VASSMN During your visit today, we recorded the following information about you: Temperature Pulse Blood pressure 96.6 degrees 75/minute 88/75 Hina Peterson MD, MD 02/26/2022 4:31 PM Signed [facility]GERY OUTPATIENT VISIT DATE February 26, 2022 OUTPATIENT VISIT TYPE ESTABLISHED SERVICE DATE: 02/26/2022 SERVICE TIME: 4:26 PM PRIMARY CARE PHYSICIAN: Devon Moreira DO HISTORY OF PRESENT ILLNESS: Mr. Almonte is a 76 year old male who presents today for a vascular surgery follow-up visit . He underwent right BKA and is here for his postop visit. He has been in half-way since then and has been recovering from his acute on chronic congestive heart failure. His wound has largely been healing without any issues and the maxwell and sutures were removed at the nursing facility. He comes here with a lateral wound eschar. He denies any fevers, chills, or any drainage. He is on anticoagulation. 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 Patient on mycophenolate mofetil , cellcept and prednisone Mixed hyperlipidemia due to type 2 diabetes mellitus ([facility]) 11/29/2021 Osteomyelitis ([facility]) 11/29/2021 Paroxysmal atrial fibrillation ([facility]) Renal transplant, status post SA node dysfunction ([facility]) s/p pacemaker Type 2 diabetes mellitus with diabetic neuropathy, with long-term current use of insulin ([facility]) 02/24/2002 PAST SURGICAL HISTORY Procedure Laterality Date ANGIOPLASTY PCI drug-eluting stent second obtuse marginal branch of left circumflex FOOT SURGERY HX HERNIA REPAIR HX PAST SURGICAL HISTORY OF renal transplant SOCIAL HISTORY Social History Tobacco Use Smoking status: Former Packs/day: 1.00 Years: 8.00 Pack years: 8.00 Types: Cigarettes Quit date: 02/15/1975 Years since quittin.0 Smokeless tobacco: Never Substance Use Topics Alcohol use: Yes Comment: 1 beer per year Drug use: Never MEDICATIONS: acetaminophen (TYLENOL EXTRA STRENGTH) 500 mg tablet Take 500 mg by mouth every 8 hours as needed. sodium hypochlorite, Dakin's Half-Strength, (DAKIN'S SOLUTION) external solution Apply 0.5 mL to affected area every evening. latanoprost (XALATAN) 0.005 % ophthalmic solution Use in both eyes daily at bedtime. traMADol (ULTRAM) 50 mg tablet Take 50 mg by mouth every 6 hours as needed for pain. atorvastatin (LIPITOR) 40 mg tablet Take 40 mg by mouth once daily. warfarin (COUMADIN) 2 mg tablet Take 3 mg Wednesday, Wednesday, Wednesday and Wednesday. Take 2 mg Wednesday, and Wednesday. insulin glargine (LANTUS SOLOSTAR, BASAGLAR KWIKPEN) 100 unit/mL (3 mL) Inject 17 Units subcutaneously once daily. sulfamethoxazole-trim ethoprim (SEPTRA) 400-80 mg per tablet Take by mouth. Take one (1) tablet -- tacrolimus IR (PROGRAF) 1 mg capsule Take 2 capsules by mouth DAILY (6 AM). tacrolimus IR (PROGRAF) 1 mg capsule Take 1 capsule by mouth DAILY AT 6 PM. insulin lispro 100 unit/mL injection Inject 6 Units subcutaneously three times daily before meals. Please give 6 units with meals three times daily plus additional sliding scale below as needed based on accuchecks Correctional Scale 2: For glucose result give insulin dose < 110 mg/dL: 0 units 111-150 mg/dL: 0 units 151-200 mg/dL: 2 units 201-250 mg/dL: 4 units 251-300 mg/dL: 6 units 301-350 mg/dL: 8 units 351-400 mg/dL: 10 units > 400 mg/dL: Give 10 units and notify provider senna-docusate (SENNA-S) 8.6-50 mg per tablet Take 1 tablet by mouth twice daily. polyethylene glycol 3350 (MIRALAX, GLYCOLAX) 17 gram packet Take 1 Packet by mouth once daily. Dissolve dose in 4 - 8 ounces of liquid and take as directed. phosphorus (K PHOS NEUTRAL) 250 mg tablet 1 tablet by ORAL/FEEDING TUBE route twice daily. ipratropium-albuterol (DUONEB) 0.5 mg-3 mg(2.5 mg base)/3 mL nebu Inhale 3 mL as instructed every 6 hours as needed for wheezing/shortness of breath. torsemide (DEMADEX) 20 mg tablet Take 1 tablet by mouth every other day. nut.tx.gluc intol,lf,soy-fiber (BOOST GLUCOSE CONTROL) 0.07-0.8 gram-kcal/mL liqd Take 237 mL by mouth daily with dinner. OTC NUTRITIONAL SUPPLEMENT Take 237 mL by mouth daily with lunch. Magic Cup [place] with lunch aspirin, enteric coated (ASPIRIN, ENTERIC COATED) 81 mg EC tablet Take 1 tablet by (more content not included)... Normal [facility] PROTIMEon 02-25-2022 INR Coag (PPP) [Relative time] 1.31 {INR} Normal [facility] Comment on above: Performed By: #### P T ####[facility] [address] [place] [address]DrSkylar Leal INR GUIDELINES SEE BELOW Normal [facility] Comment on above: Result Comment: MALINA RED INR: 2.0 - 3.0 CONDITIONS NOT LISTED BELOW 2.5 - 3.5 FOR PROSTHETIC HEART VALVE REPLACEMENT 2.5 - 3.5 RECURRENT THROMBOSIS Performed By: #### P T ####[facility] [address] [place] [id number] Leal PT Coag (PPP) [Time] 13.7 s Critically high 9.0-11.6 [facility] Comment on above: Performed By: #### P T ####[facility] [address] [place] [address]DrSkylar Hassan 02-19-2022 DIAMANTEN Telephone (TXCTGL) ALEX ALMONTE ([id number]) 1945 M TRN Date Time Provider Department 02/19/22 AUGUSTA MEDRANO During your visit today, we recorded the following information about you: Augusta Medrano RN 02/19/2022 11:16 AM Signed [facility], called regarding elevated tacrolimus level (23.9). Spoke with bedside nurse, mukul Enriquez. Level is from last week- unable to clearly determine if medications were held prior to lab work. Reviewed with nurse morning labs should occur prior to lab draws. Patient is scheduled for repeat labs tomorrow. Will assess new level. Augusta Medrano RN Allergies As of Date: 02/19/2022 Noted Allergy Reaction PYRIDOSTIGMINE BROMIDE 08/04/2021 8 - GI Upset Date Reviewed: 02/05/2022 Reviewed by: Harper Ignacio MA - Fully Assessed Reason for Visit: Results [95] Cmt: [place] 23.9 Prescriptions as of 02/19/2022 - atorvastatin (LIPITOR) 40 mg tablet Take 40 mg by mouth once daily. - warfarin (COUMADIN) 2 mg tablet Take 3 mg Wednesday, Wednesday, Wednesday and Wednesday. Take 2 mg Wednesday, and Wednesday. - insulin glargine (LANTUS SOLOSTAR, BASAGLAR KWIKPEN) 100 unit/mL (3 mL) Inject 17 Units subcutaneously once daily. - sulfamethoxazole-trim ethoprim (SEPTRA) 400-80 mg per tablet Take by mouth. Take one (1) tablet - - tacrolimus IR (PROGRAF) 1 mg capsule Take 2 capsules by mouth DAILY (6 AM). - tacrolimus IR (PROGRAF) 1 mg capsule Take 1 capsule by mouth DAILY AT 6 PM. - insulin lispro 100 unit/mL injection Inject 6 Units subcutaneously three times daily before meals. Please give 6 units with meals three times daily plus additional sliding scale below as needed based on accuchecks Correctional Scale 2: For glucose result give insulin dose < 110 mg/dL: 0 units 111-150 mg/dL: 0 units 151-200 mg/dL: 2 units 201-250 mg/dL: 4 units 251-300 mg/dL: 6 units 301-350 mg/dL: 8 units 351-400 mg/dL: 10 units > 400 mg/dL: Give 10 units and notify provider - senna-docusate (SENNA-S) 8.6-50 mg per tablet Take 1 tablet by mouth twice daily. - polyethylene glycol 3350 (MIRALAX, GLYCOLAX) 17 gram packet Take 1 Packet by mouth once daily. Dissolve dose in 4 - 8 ounces of liquid and take as directed. - phosphorus (K PHOS NEUTRAL) 250 mg tablet 1 tablet by ORAL/FEEDING TUBE route twice daily. - ipratropium-albuterol (DUONEB) 0.5 mg-3 mg(2.5 mg base)/3 mL nebu Inhale 3 mL as instructed every 6 hours as needed for wheezing/shortness of breath. - oxyCODONE IR (ROXICODONE) 5 mg immediate release tablet 1-2 tablets by ORAL/FEEDING TUBE route every 3 hours as needed. - torsemide (DEMADEX) 20 mg tablet Take 1 tablet by mouth every other day. - nut.tx.gluc intol,lf,soy-fiber (BOOST GLUCOSE CONTROL) 0.07-0.8 gram-kcal/mL liqd Take 237 mL by mouth daily with dinner. - Food Supplement, Lactose-Free (ENSURE MAX PROTEIN) liqd Take 237 mL by mouth daily with breakfast. - OTC NUTRITIONAL SUPPLEMENT Take 237 mL by mouth daily with lunch. Magic Cup [place] with lunch - aspirin, enteric coated (ASPIRIN, ENTERIC COATED) 81 mg EC tablet Take 1 tablet by mouth once daily. - atorvastatin (LIPITOR) 40 mg tablet 1 tablet by ORAL/FEEDING TUBE route daily at bedtime. - predniSONE (DELTASONE) 5 mg tablet TAKE 1 TABLET BY MOUTH EVERY DAY Problem List As Of Date 02/19/2022 Noted Resolved ULCER OF LOWER LIMB, UNSPEC [L97.909] 02/24/2002 DIAB RENAL MANIF ADULT-UNCONTRLLD [E11.29, E11.*02/24/2002 Type 2 diabetes mellitus with diabetic neuropat*02/24/2002 DIABETES UNCOMPL ADULT-UNCONTRLLED [[id number]] 02/24/2002 KIDNEY TRANSPLANT STATUS [Z94.0] 09/07/2003 PROPHYLACTIC IMMUNOTHERAPY [Z29.8] 07/30/2006 NURSING HOME STEROIDS [RNS4702] 07/30/2006 VITAMIN D DEFICIENCY NOS [E55.9] 09/07/2008 MIXED HYPERLIPIDEMIA [E78.2] 09/07/2008 SUMMARY 01/04/2015 ILIANA (acute kidney injury) (HCC) [N17.9] 01/04/2015 Diabetes mellitus (HCC) [E11.9] 01/04/2015 Cellulitis [L03.90] 01/04/2015 Diarrhea [R19.7] 01/04/2015 VTE (venous thromboembolism) [I82.90] 09/24/2021 CAD (coronary artery disease) [I25.10] 2016 Paroxysmal atrial fibrillation (HCC) [I48.0] HTN (hypertension) [I10] SA node dysfunction (HCC) [I49.5] Altered tissue perfusion [R09.89] 09/30/2021 PAD (peripheral artery disease) (HCC) [I73.9] 09/26/2021 Osteomyelitis (HCC) [M86.9] 11/29/2021 Class 1 obesity due to excess calories with ser*11/29/2021 Mixed hyperlipidemia due to type 2 diabetes myles*11/29/2021 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 Almonte would like to request a sooner appointment with Dr. Peterson than 04/13/2022. Contact Name (if not the patient) Alex's nurse Home and cell number(Ask for Alex's nurse) [phone] Diagnosis 4 mo f/u wound check Best sherwin, Yumiko Beard 02/19/2022 12:22 PM Signed Alex Almonte appointments have been scheduled accordingly. Patient has been notified via telephone and appointment schedule sent via My Chart Gwen Beard February 19, 2022 12:22 PM Allergies As of Date: 02/18/2022 Noted Allergy Reaction PYRIDOSTIGMINE BROMIDE 08/04/2021 8 - GI Upset Date Reviewed: 02/05/2022 Reviewed by: Harper Ignacio MA - Fully Assessed Reason for Visit: Appointment [186] Prescriptions as of 02/19/2022 - atorvastatin (LIPITOR) 40 mg tablet Take 40 mg by mouth once daily. - warfarin (COUMADIN) 2 mg tablet Take 3 mg Wednesday, Wednesday, Wednesday and Wednesday. Take 2 mg Wednesday, and Wednesday. - insulin glargine (LANTUS SOLOSTAR, BASAGLAR KWIKPEN) 100 unit/mL (3 mL) Inject 17 Units subcutaneously once daily. - sulfamethoxazole-trim ethoprim (SEPTRA) 400-80 mg per tablet Take by mouth. Take one (1) tablet -- - tacrolimus IR (PROGRAF) 1 mg capsule Take 2 capsules by mouth DAILY (6 AM). - tacrolimus IR (PROGRAF) 1 mg capsule Take 1 capsule by mouth DAILY AT 6 PM. - insulin lispro 100 unit/mL injection Inject 6 Units subcutaneously three times daily before meals. Please give 6 units with meals three times daily plus additional sliding scale below as needed based on accuchecks Correctional Scale 2: For glucose result give insulin dose < 110 mg/dL: 0 units 111-150 mg/dL: 0 units 151-200 mg/dL: 2 units 201-250 mg/dL: 4 units 251-300 mg/dL: 6 units 301-350 mg/dL: 8 units 351-400 mg/dL: 10 units > 400 mg/dL: Give 10 units and notify provider - senna-docusate (SENNA-S) 8.6-50 mg per tablet Take 1 tablet by mouth twice daily. - polyethylene glycol 3350 (MIRALAX, GLYCOLAX) 17 gram packet Take 1 Packet by mouth once daily. Dissolve dose in 4 - 8 ounces of liquid and take as directed. - phosphorus (K PHOS NEUTRAL) 250 mg tablet 1 tablet by ORAL/FEEDING TUBE route twice daily. - ipratropium-albuterol (DUONEB) 0.5 mg-3 mg(2.5 mg base)/3 mL nebu Inhale 3 mL as instructed every 6 hours as needed for wheezing/shortness of breath. - oxyCODONE IR (ROXICODONE) 5 mg immediate release tablet 1-2 tablets by ORAL/FEEDING TUBE route every 3 hours as needed. - torsemide (DEMADEX) 20 mg tablet Take 1 tablet by mouth every other day. - nut.tx.gluc intol,lf,soy-fiber (BOOST GLUCOSE CONTROL) 0.07-0.8 gram-kcal/mL liqd Take 237 mL by mouth daily with dinner. - Food Supplement, Lactose-Free (ENSURE MAX PROTEIN) liqd Take 237 mL by mouth daily with breakfast. - OTC NUTRITIONAL SUPPLEMENT Take 237 mL by mouth daily with lunch. Magic Cup [place] with lunch - aspirin, enteric coated (ASPIRIN, ENTERIC COATED) 81 mg EC tablet Take 1 tablet by mouth once daily. - atorvastatin (LIPITOR) 40 mg tablet 1 tablet by ORAL/FEEDING TUBE route daily at bedtime. 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] 07/30/2006 VITAMIN D DEFICIENCY NOS [E55.9] 09/07/2008 MIXED HYPERLIPIDEMIA [E78.2] 09/07/2008 SUMMARY 01/04/2015 ILIANA (acute kidney injury) (HCC) [N17.9] 01/04/2015 Diabetes mellitus (HCC) [E11.9] 01/04/2015 Cellulitis [L03.90] 01/04/2015 Diarrhea [R19.7] 01/04/2015 VTE (venous thromboembolism) [I82.90] 09/24/2021 CAD (coronary artery disease) [I25.10] 2016 Paroxysmal atrial fibrillation (HCC) [I48.0] HTN (hypertension) [I10] SA node dysfunction (HCC) [I49.5] Altered tissue perfusion [R09.89] 09/30/2021 PAD (peripheral artery disease) (HCC) [I73.9] 09/26/2021 Osteomyelitis (HCC) [M86.9] 11/29/2021 Class 1 obesity due to excess calories with ser*11/29/2021 Mixed hyperlipidemia due to type 2 diabetes myles*11/29/2021 Type 2 diabetes mellitus with diabetic peripher*11/29/2021 Atherosclerosis of buckland artery of extremity w*11/29/2021 Malnutrition of moderate degree (HCC) [E44.0] 12/01/2021 Dermatitis associated with moisture [L30.8] 12/04/2021 Encounter Status:Closed by CHEASTY (more content not included)... Normal [facility] CNOVon 02-05-2022 CNOV Office Visit (TXCTGL ) ALEX ALMONTE ([id number]) 1945 M TRN Date Time Provider Department 02/05/22 8:20 AM KIDNEY TXP CLINIC TXCTGL During your visit today, we recorded the following information about you: Temperature Pulse Blood pressure 96.7 degrees 79/minute 72/42 Asia Pike MD 02/05/2022 9:38 AM Signed [facility]rologic and Kidney [place] Transplant Follow up Portions of this note were copied from the last encounter. Changes were made to appropriately reflect updated history and interval events, physical exam, data review, and medical decision making. 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 Briefly on midodrine and florinef, now off all -Hospital admission 11/28-12/11/2021 Osteomyelitis right foot w/ right BKA Home BP: 90-100/60-70; In office: 72/42 New Complaints: 20 years, 10 months post kidney transplant Feeling lightheaded and dizzy this AM with lower BP. Offered water and snacks patient declined. Indra scale at [facility]: 166.2 lbs per patient. Bed sore on coccyx causing discomfort. Being changed regularly at SNF- reported to be smaller around but still as deep. Patient not very up to date with medications. Patient brought paperwork from [facility] [employer] with all medications being received. Patient unsure if they have been drawing labs regularly. Last Tac from 01/19: 12.9 and K 5.9. In need of current labs. Lab orders will be sent with patient and follows as below: Kidney and Pancreas Transplant Standing Lab Orders [address] [place], [place] [address] February 05, 2022 Alex Almonte 1945 [id number] STANDARD TESTING: Diagnosis Codes: Z94.0 Kidney Transplant and Z48.298 Aftercare following Organ Transplant Standard Testing: Comp Metabolic Panel: Monthly CBC w/Differential: Monthly Magnesium: Monthly Intact PTH (N25.81): Other Every 6 months Vitamin D 25-Hydroxy (E55.9): Every 3 months Fasting Lipid Panel (E78.5): Other Every 6 months Other Inorganic Phosphorus: Monthly DRUG LEVELS: Diagnosis Codes: Z94.0 Kidney Transplant, Z48.298 Aftercare following Organ Transplant and Z51.81 Encounter for Therapeutic Drug Monitoring Drug Levels: FK 506 (Tacrolimus) Frequency: Monthly PLEASE RUN THE ABOVE ORDERED TESTS STAT AT YOUR LABORATORY FACILITY AND FAX TO [phone]. PLEASE CALL [phone]. Provider: Dr. Pike Current Outpatient Medications Medication Sig insulin glargine (LANTUS SOLOSTAR, BASAGLAR KWIKPEN) 100 unit/mL (3 mL) Inject 17 Units subcutaneously once daily. sulfamethoxazole-trim ethoprim (SEPTRA) 400-80 mg per tablet Take by mouth. Take one (1) tablet M-- tacrolimus IR (PROGRAF) 1 mg capsule Take 2 capsules by mouth DAILY (6 AM). tacrolimus IR (PROGRAF) 1 mg capsule Take 1 capsule by mouth DAILY AT 6 PM. warfarin (COUMADIN) 2 mg tablet Take 1 tablet by mouth once daily. insulin lispro 100 unit/mL injection Inject 6 Units subcutaneously three times daily before meals. Please give 6 units with meals three times daily plus additional sliding scale below as needed based on accuchecks Correctional Scale 2: For glucose result give insulin dose < 110 mg/dL: 0 units 111-150 mg/dL: 0 units 151-200 mg/dL: 2 units 201-250 mg/dL: 4 units 251-300 mg/dL: 6 units 301-350 mg/dL: 8 units 351-400 mg/dL: 10 units > 400 mg/dL: Give 10 units and notify provider senna-docusate (SENNA-S) 8.6-50 mg per tablet Take 1 tablet by mouth twice daily. polyethylene glycol 3350 (MIRALAX, GLYCOLAX) 17 gram packet Take 1 Packet by mouth once daily. Dissolve dose in 4 - 8 ounces of liquid and take as directed. phosphorus (K PHOS NEUTRAL) 250 mg tablet 1 tablet by ORAL/FEEDING TUBE route twice daily. ipratropium-albuterol (DUONEB) 0.5 mg-3 mg(2.5 mg base)/3 mL nebu Inhale 3 mL as instructed every 6 hours as needed for wheezing/shortness of breath. oxyCODONE IR (ROXICODONE) 5 mg immediate release tablet 1-2 tablets by ORAL/FEEDING TUBE route every 3 hours as needed. torsemide (DEMADEX) 20 mg tablet Take 1 tablet by mouth every other day. nut.tx.gluc intol,lf,soy-fiber (BOOST GLUCOSE CONTROL) 0.07-0.8 gram-kcal/mL liqd Take 237 mL by mouth daily with dinner. Food Supplement, Lactose-Free (ENSURE MAX PROTEIN) liqd Take 237 mL by mouth daily with breakfast. OTC NUTRITIONAL SUPPLEMENT Take 237 (more content not included)... Normal [facility] PROTEIN CREATININE RATIOon 1 04-08-2021 Protein/Creatinine (U) [Mass ratio] 0.10 mg/mg <0.15 mg/mg [facility] PROTIMEon 02-05-2022 INR Coag (PPP) [Relative time] 2.90 {INR} Normal [facility] Comment on above: Performed By: #### P T ####[facility] [address] [address]Dr. Farhat Leal INR GUIDELINES SEE BELOW Normal [facility] Comment on above: Result Comment: MALINA RED INR: 2.0 - 3.0 CONDITIONS NOT LISTED BELOW 2.5 - 3.5 FOR PROSTHETIC HEART VALVE REPLACEMENT 2.5 - 3.5 RECURRENT THROMBOSIS Performed By: #### P T ####[facility] [address] [address]DrSkylar Leal PT Coag (PPP) [Time] 29.2 s Critically high 9.0-11.6 [facility] Comment on above: Performed By: #### P T ####[facility] [address] [place] [address]Dr. Farhat Leal Prot/Creat Uron 02-05-2022 Protein/Creatinine (U) [Mass ratio] 0.10 mg/mg Normal <0.15 [facility] Comment on above: Order Comment: Speci men Type: URINE SPECIMENOrdering Facility: [facility] Address: [address] [place], [place] [id number] Result Comment: Adul t Proteinuria Categories: <0.15 mg/mg is considered normal to mildly increased 0.15 - 0.50 mg/mg is considered moderately increased >0.50 mg/mg is considered severely increased KDIGO. (2013). KDIGO 2012 Clinical Practice Guideline for the Evaluation and Management of Chronic Kidney Disease. Official Journal of the International Society of Nephrology, 3(1), 1-150. Performed By: #### 2 890-2 ####[facility] LABCLIA [id number] [address] [place] Protein/Creatinine (U) [Mass ratio]on 02-05-2022 Creatinine (U) [Mass/Vol] 86.9 mg/dL 20.0 - 300.0 mg/dL [facility] Protein (U) [Mass/Vol] 9 mg/dL 0 - 20 mg/dL [facility] Creatinine (U) [Mass/Vol] 86.9 mg/dL Normal 20.0-300.0 [facility] Comment on above: Order Comment: Speci men Type: URINE SPECIMENOrdering Facility: [facility] Address: [address] [address] Performed By: #### 2 890-2 ####[facility] LABCLIA [id number] [address] [place] Protein (U) [Mass/Vol] 9 mg/dL Normal 0-20 [facility] Comment on above: Order Comment: Speci men Type: URINE SPECIMENOrdering Facility: [facility] Address: [address] [place] [address] Performed By: #### 2 890-2 ####[facility] LABCLIA [id number] [place] [address] [place] URINALYSIS, DIPSTICK ONLYon 02-05-2022 Bilirubin Ql (U) Negative Normal Negative [facility] Comment on above: Order Comment: Speci men Type: URINE SPECIMEN [facility] Address: [address] [place] [address] Performed By: #### U A #### [facility] CLIA [id number] [address] [place] [address] [place] Clarity (Unsp spec) Clear Normal Clear [facility] Comment on above: Order Comment: Speci men Type: URINE SPECIMEN [facility] Address: [address] [place] [address] Performed By: #### U A #### [facility] CLIA [id number] [address] [place] [address] [place] Color (U) Yellow Normal Yellow [facility] Comment on above: Order Comment: Speci men Type: URINE SPECIMEN [facility] Address: [address] [address] Performed By: #### U A #### [facility] CLIA [id number] [address] [place] [address] [place] Glucose Test strip (U) [Mass/Vol] 3+ Abnormal Trace, Negative [facility] Comment on above: Order Comment: Speci men Type: URINE SPECIMEN [facility] Address: [address] [address] Performed By: #### U A #### [facility] CLIA [id number] [address] [place] [address] [place] Hemoglobin Ql (U) Negative Normal Negative, Trace [facility] Comment on above: Order Comment: Speci men Type: URINE SPECIMEN [facility] Address: [address] [address] Performed By: #### U A #### [facility] CLIA [id number] [address] [place] [address] [place] Ketones Ql (U) Trace Normal Negative, Trace [facility] Comment on above: Order Comment: Speci men Type: URINE SPECIMEN [facility] Address: [address] Performed By: #### U A #### [facility] CLIA [id number] [address] [place] [address] [place] [facility] [place] Leukocyte esterase Test strip Ql (U) Negative Normal Negative, 25 Loraine/mL [facility] Comment on above: Order Comment: Speci men Type: URINE SPECIMEN [facility] Address: [address] Performed By: #### U A #### [facility] CLIA [id number] [address] [place] [address] [place] Nitrite Ql (U) Negative Normal Negative [facility] Comment on above: Order Comment: Speci men Type: URINE SPECIMEN [facility] Address: [address] [place] [address] Performed By: #### U A #### [facility] CLIA [id number] [address] [place] [address] [place] pH (U) 5.5 [pH] Normal 5.0-8.0 [facility] Comment on above: Order Comment: Speci men Type: URINE SPECIMEN [facility] Address: [address] [place] [address] Performed By: #### U A #### [facility] CLIA [id number] [address] [place] [address] [place] Protein (U) [Mass/Vol] Negative Normal Trace , Negative [facility] Comment on above: Order Comment: Speci men Type: URINE SPECIMEN [facility] Address: [address] [place] [address] Performed By: #### U A #### [facility] CLIA [id number] [address] [place] [address] [place] Specific gravity (U) [Rel density] 1.014 Normal 1.005-1.030 [facility] Comment on above: Order Comment: Speci men Type: URINE SPECIMEN [facility] Address: [address] [place] [address] Performed By: #### U A #### [facility] CLIA [id number] [address] [place] [address] [place] Urobilinogen Ql (U) 1+ Abnormal Negative [facility] Comment on above: Order Comment: Speci men Type: URINE SPECIMEN [facility] Address: [address] [place] [address] Performed By: #### U A #### [facility] CLIA [id number] [address] [place] [address] [place] Bilirubin Ql (U) Negative Negative [facility] Clarity (Unsp spec) Clear Clear [facility] Color (U) Yellow Yellow [facility] Glucose Test strip (U) [Mass/Vol] 3+ Abnormal Trace, Negative [facility] Hemoglobin Ql (U) Negative Negative, Trace [facility] Ketones Ql (U) Trace Negative, Trace [facility] Leukocyte esterase Test strip Ql (U) Negative Negative, 25 Loraine/mL [facility] Nitrite Ql (U) Negative Negative [facility] pH (U) 5.5 [pH] 5.0 - 8.0 [facility] Protein (U) [Mass/Vol] Negative Trace , Negative [facility] Specific gravity (U) [Rel density] 1.014 1.005 - 1.030 [facility] Urobilinogen Ql (U) 1+ Abnormal Negative [facility] FK506 (TACROLIMUS) WHOLE BLO ODon 01-29-2022 Tacrolimus (FK506), Blood 11.1 ng/mL Normal 2.0-20.0 [facility] Comment on above: Result Comment: Trou gh (immediately following transplant) 15.0 . Trough (steady state, 2 weeks or more after transplant): 3.0 - 8.0 . Performed by LC-MS/MS technology. Performed By: #### F K506T ####[facility] [address] [place], [place] [address]DrSkylar Leal PHOSPHORUSon 01-26-2022 Phosphate [Mass/Vol] 4.1 mg/dL Normal 2.6-4.7 [facility] Comment on above: Performed By: #### C HENRI MARROQUIN ####[facility] [address] [place], [place] [address]DrSkylar Leal PROF 14(COMP METB)on 022 Albumin [Mass/Vol] 2.1 g/dL Critically low 3.4-5.[address] [facility] Comment on above: Performed By: #### C HENRI MARROQUIN ####[facility] [address] [address]Dr. Farhat Leal Albumin/Globulin [Mass ratio] 0.6 {ratio} Normal [facility] Comment on above: Performed By: #### C CARA, PHOS ####[facility] [address] [place], [place] [address]Dr. Farhat Leal ALP [Catalytic activity/Vol] 89 U/L Normal 46-116 [facility] Comment on above: Performed By: #### C CARA, PHOS ####[facility] [address] [place], [place] [address]Dr. Farhat Leal ALT [Catalytic activity/Vol] 27 U/L Normal 16-63 [facility] Comment on above: Performed By: #### C CARA, PHOS ####[facility] [address] [place], [place] [address]Dr. Farhat Leal Anion gap [Moles/Vol] 12.3 mmol/L Normal [facility] Comment on above: Performed By: #### C CARA, PHOS ####[facility] [address] [place], [place] [address]Dr. Farhat Leal AST [Catalytic activity/Vol] 53 U/L Critically high 15-37 [facility] Comment on above: Performed By: #### C CARA, PHOS ####[facility] [address] [place], [place] [address]Dr. Farhat Leal Bilirubin [Mass/Vol] 0.6 mg/dL Normal 0.2-1.0 [facility] Comment on above: Performed By: #### C CARA, PHOS ####[facility] [address] [place], [place] [address]Dr. Farhat Leal Calcium [Mass/Vol] 8.0 mg/dL Critically low 8.5-10.[address] [facility] Comment on above: Performed By: #### C CARA, PHOS ####[facility] [address] [place], [place] [address]Dr. Farhat Elvis Chloride [Moles/Vol] 97 mmol/L Critically low 98-107 [facility] Comment on above: Performed By: #### C CARA, PHOS ####[facility] [address] [id number]. Farhat Leal CO2 [Moles/Vol] 26.6 mmol/L Normal 21.0-32.0 [facility] Comment on above: Performed By: #### C CARA, PHOS ####[facility] [address] [id number]. Farhat Leal Creatinine [Mass/Vol] 1.03 mg/dL Normal 0.70-1.30 [facility] Comment on above: Performed By: #### C CARA, PHOS ####[facility] [address] [id number]. Farhat Leal EGFR-AF KYRGYZ >60 Normal >=60 [facility] Comment on above: Performed By: #### C CARA, PHOS ####[facility] [address] [address]Dr. Farhat Leal EGFR-NON AF KYRGYZ >60 Normal >=60 [facility] Comment on above: Performed By: #### C CARA, PHOS ####[facility] [address] [address]Dr. Farhat Leal Globulin (S) [Mass/Vol] 3.7 g/dL Normal [facility] Comment on above: Performed By: #### C CARA, PHOS ####[facility] [address] [address]Dr. Farhat Leal Glucose [Mass/Vol] 287 mg/dL Critically high 74-106 [facility] Comment on above: Performed By: #### C CARA, PHOS ####[facility] [address] [place] [address]Dr. Farhat Leal Potassium [Moles/Vol] 3.9 mmol/L Normal 3.5-5.1 [facility] Comment on above: Performed By: #### C CARA, PHOS ####[facility] [address] [address]Dr. Farhat Leal Protein [Mass/Vol] 5.8 g/dL Critically low 6.4-8.2 [facility] Comment on above: Performed By: #### C CARA, PHOS ####[facility] [address] [place] [id number]. Farhat Leal Sodium [Moles/Vol] 132 mmol/L Critically low 136-145 [facility] Comment on above: Performed By: #### C MP, PHOS ####[facility] [address] [place] [id number]. Farhat Leal Urea nitrogen [Mass/Vol] 23.0 mg/dL Critically high 7.0-18.0 [facility] Comment on above: Performed By: #### C CARA, PHOS ####[facility] [address] [place], [place] [address]Dr. Farhat Leal Urea nitrogen/Creatinine [Mass ratio] 22.3 mg/mg Normal [facility] Comment on above: Performed By: #### C CARA, PHOS ####[facility] [address] [place], [place] [address]Dr. Farhat Leal FK506 (TACROLIMUS) WHOLE BLO ODon 01-21-2022 Tacrolimus (FK506), Blood 12.2 ng/mL Normal 2.0-20.0 [facility] Comment on above: Result Comment: Trou gh (immediately following transplant) 15.0 . Trough (steady state, 2 weeks or more after transplant): 3.0 - 8.0 . Performed by LC-MS/MS technology. Performed By: #### F K506T ####[facility] [address] [place], [place] [address]Dr. Farhat Leal ACID FAST SMEAR AND CXon Acid Fast Culture Negative Normal [facility] Comment on above: Result Comment: No a abdiel fast bacilli isolated after 6 weeks. Performed By: #### A FB ####[facility] [address] [place], [place] [address]Dr. Farhat Leal Acid Fast Smear Negative Normal [facility] Comment on above: Performed By: #### A FB ####[facility] [address] [place], [place] [address]Dr. Farhat Leal [employer] Specimen Processing Tissue Grinding Normal [facility] Comment on above: Performed By: #### A FB ####[facility] [address] [place], [place] [address]HpSkylar Leal Sonya 01-20-2022 DIAMANTEN Telephone (KIMBERLY) ZORAALEX MUÑOZ ([id number]) 1945 M TRN Date Time Provider Department 01/20/22 VAN OLIVAREZ During your visit today, we recorded the following information about you: Van Olivarez APRN.DIAMANTE 01/20/2022 1:14 PM Signed Labs noted from yesterday. Pt is currently residing at [facility], I spoke with the Nurse, the results has been addressed by Physician caring for pt. He had been placed on Chlor Con and this has been discontinued and hyperkalemia has been treated. Van Olivarez APRN.INSULATION MANAGER Allergies As of Date: 01/20/2022 Noted Allergy Reaction PYRIDOSTIGMINE BROMIDE 08/04/2021 8 - GI Upset Date Reviewed: 01/15/2022 Reviewed by: Raquel Tai APRN.INSULATION MANAGER - Fully Assessed Reason for Visit: Results [95] Prescriptions as of 01/20/2022 - insulin glargine (LANTUS SOLOSTAR, BASAGLAR KWIKPEN) 100 unit/mL (3 mL) Inject 17 Units subcutaneously once daily. - sulfamethoxazole-trim ethoprim (SEPTRA) 400-80 mg per tablet Take by mouth. Take one (1) tablet -- - tacrolimus IR (PROGRAF) 1 mg capsule Take 2 capsules by mouth DAILY (6 AM). - tacrolimus IR (PROGRAF) 1 mg capsule Take 1 capsule by mouth DAILY AT 6 PM. - warfarin (COUMADIN) 2 mg tablet Take 1 tablet by mouth once daily. - insulin lispro 100 unit/mL injection Inject 6 Units subcutaneously three times daily before meals. Please give 6 units with meals three times daily plus additional sliding scale below as needed based on accuchecks Correctional Scale 2: For glucose result give insulin dose < 110 mg/dL: 0 units 111-150 mg/dL: 0 units 151-200 mg/dL: 2 units 201-250 mg/dL: 4 units 251-300 mg/dL: 6 units 301-350 mg/dL: 8 units 351-400 mg/dL: 10 units > 400 mg/dL: Give 10 units and notify provider - senna-docusate (SENNA-S) 8.6-50 mg per tablet Take 1 tablet by mouth twice daily. - polyethylene glycol 3350 (MIRALAX, GLYCOLAX) 17 gram packet Take 1 Packet by mouth once daily. Dissolve dose in 4 - 8 ounces of liquid and take as directed. - phosphorus (K PHOS NEUTRAL) 250 mg tablet 1 tablet by ORAL/FEEDING TUBE route twice daily. - ipratropium-albuterol (DUONEB) 0.5 mg-3 mg(2.5 mg base)/3 mL nebu Inhale 3 mL as instructed every 6 hours as needed for wheezing/shortness of breath. - oxyCODONE IR (ROXICODONE) 5 mg immediate release tablet 1-2 tablets by ORAL/FEEDING TUBE route every 3 hours as needed. - torsemide (DEMADEX) 20 mg tablet Take 1 tablet by mouth every other day. - nut.tx.gluc intol,lf,soy-fiber (BOOST GLUCOSE CONTROL) 0.07-0.8 gram-kcal/mL liqd Take 237 mL by mouth daily with dinner. - Food Supplement, Lactose-Free (ENSURE MAX PROTEIN) liqd Take 237 mL by mouth daily with breakfast. - OTC NUTRITIONAL SUPPLEMENT Take 237 mL by mouth daily with lunch. Magic Cup [place] with lunch - aspirin, enteric coated (ASPIRIN, ENTERIC COATED) 81 mg EC tablet Take 1 tablet by mouth once daily. - atorvastatin (LIPITOR) 40 mg tablet 1 tablet by ORAL/FEEDING TUBE route daily at bedtime. 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] 07/30/2006 VITAMIN D DEFICIENCY NOS [E55.9] 09/07/2008 MIXED HYPERLIPIDEMIA [E78.2] 09/07/2008 SUMMARY 01/04/2015 ILIANA (acute kidney injury) (HCC) [N17.9] 01/04/2015 Diabetes mellitus (HCC) [E11.9] 01/04/2015 Cellulitis [L03.90] 01/04/2015 Diarrhea [R19.7] 01/04/2015 VTE (venous thromboembolism) [I82.90] 09/24/2021 CAD (coronary artery disease) [I25.10] 2016 Paroxysmal atrial fibrillation (HCC) [I48.0] HTN (hypertension) [I10] SA node dysfunction (HCC) [I49.5] Altered tissue perfusion [R09.89] 09/30/2021 PAD (peripheral artery disease) (HCC) [I73.9] 09/26/2021 Osteomyelitis (HCC) [M86.9] 11/29/2021 Class 1 obesity due to excess calories with ser*11/29/2021 Mixed hyperlipidemia due to type 2 diabetes myles*11/29/2021 Type 2 diabetes mellitus with diabetic peripher*11/29/2021 Atherosclerosis of buckland artery of extremity w*11/29/2021 Malnutrition of moderate degree (HCC) [E44.0] 12/01/2021 Dermatitis associated with moisture [L30.8] 12/04/2021 Encounter Status:Closed by VAN OLIVAREZ on 01/20/22 Normal [facility] Orders Onlyon 01-20-2022 Orders Only [id number] Alex Almonte 1945 M Date Provider Department Center 01/20/2022 Francisco Javier-SUSIE HERNANDES [facility] No family history on file Normal [facility] PROF 14(COMP METB)on 022 Albumin [Mass/Vol] 1.9 g/dL Critically low 3.4-5.0 Th [facility] Comment on above: Performed By: #### C MP ####[facility] [address] [place] [address]Dr. Farhat Leal Albumin/Globulin [Mass ratio] 0.5 {ratio} Normal [facility] Comment on above: Performed By: #### C MP ####[facility] Utfunksxnl[address] [place] [address]Dr. Farhat Leal ALP [Catalytic activity/Vol] 78 U/L Normal 46-116 [facility] Comment on above: Performed By: #### C MP ####[facility] Ysvvuyegon[address] [place], [place] [address]Dr. Farhat Leal ALT [Catalytic activity/Vol] 22 U/L Normal 16-63 [facility] Comment on above: Performed By: #### C MP ####[facility] Cudifpnysg9[address] [place], [place] [address]Dr. Farhat Leal Anion gap [Moles/Vol] 8.0 mmol/L Normal [facility] Comment on above: Performed By: #### C MP ####[facility] Egeeayubyp40[address] [place], [place] [address]Dr. Farhat Leal AST [Catalytic activity/Vol] 92 U/L Critically high 15-37 [facility] Comment on above: Performed By: #### C MP ####[facility] Dcieuuewcy[address] [place], [place] [address]Dr. Farhat Leal Bilirubin [Mass/Vol] 0.7 mg/dL Normal 0.2-1.0 [facility] Comment on above: Performed By: #### C MP ####[facility] Kfejrnlcxu201[address] [place], [place] [address]Dr. Farhat Leal Calcium [Mass/Vol] 7.8 mg/dL Critically low 8.5-10.1 Th [facility] Comment on above: Performed By: #### C MP ####[facility] Woopcdrgxc[address] [place], [place] [address]Dr. Farhat Leal Chloride [Moles/Vol] 99 mmol/L Normal 98-107 [facility] Comment on above: Performed By: #### C MP ####[facility] [address]llxsbwbo[address] [place] [address]Dr. Farhat Leal CO2 [Moles/Vol] 30.9 mmol/L Normal 21.0-32.0 [facility] Comment on above: Performed By: #### C MP ####[facility] Zlkslxsbmg9[address] [place] [address]Dr. Farhat Leal Creatinine [Mass/Vol] 0.95 mg/dL Normal 0.70-1.30 [facility] Comment on above: Performed By: #### C MP ####[facility] Loifybqcyb03[address] [place], [place] [address]Dr. Farhat Leal EGFR-AF KYRGYZ >60 Normal >=60 [facility] Comment on above: Performed By: #### C MP ####[facility] Vzwkjcnjwv[address] [place], [place] [address]Dr. Farhat Leal EGFR-NON AF KYRGYZ >60 Normal >=60 [facility] Comment on above: Performed By: #### C MP ####[facility] Nxaegtluly[address] [place], [place] [address]Dr. Farhat Leal Globulin (S) [Mass/Vol] 3.9 g/dL Normal [facility] Comment on above: Performed By: #### C MP ####[facility] Xynodwcwqf10[address] [place], [place] [address]Dr. Farhat Leal Glucose [Mass/Vol] 124 mg/dL Critically high 74-106 T [facility] Comment on above: Performed By: #### C MP ####[facility] Kkhiodskbn6[address] [place], [place] [address]Dr. Farhat Leal Potassium [Moles/Vol] 5.9 mmol/L Critically high 3.5-5.1 [facility] Comment on above: Performed By: #### C MP ####[facility] Jvjkvkguzz9[address] [place], [place] [address]Dr. Farhat Leal Protein [Mass/Vol] 5.8 g/dL Critically low 6.4-8.2 Th e [facility] Comment on above: Performed By: #### C MP ####[facility] [address]rtvmmn[address] [place] [id number]. Farhat Leal Sodium [Moles/Vol] 132 mmol/L Critically low 136-145 Th e [facility] Comment on above: Performed By: #### C MP ####[facility] Nslhrzexnk[address] [place] [id number]. Farhat Leal Urea nitrogen [Mass/Vol] 18.0 mg/dL Normal 7.0-18.0 [facility] Comment on above: Performed By: #### C MP ####[facility] Ykslacjfqe3[address] [place] [id number]. Farhat Leal Urea nitrogen/Creatinine [Mass ratio] 18.9 mg/mg Normal [facility] Comment on above: Performed By: #### C MP ####[facility] [address]iozyl[address]cy[address] [place] [phone]. Madelynlorri Leal INR (POC)on 01-12-2022 INR Coag (PPP) [Relative time] 2.6 {INR} High 0.8 - 1.2 [facility] Internal Quality Check Acceptable Cl [facility] ACID FAST SMEAR AND CXon Acid Fast Culture Negative Normal [facility] Comment on above: Result Comment: No a abdiel fast bacilli isolated after 6 weeks. Performed By: #### A FB ####[facility] Ehhpohnxmu355[address] [place], [place] [address]Dr. Farhat Leal Acid Fast Smear Negative Normal [facility] Comment on above: Performed By: #### A FB ####[facility] Msulwhxygg7[address] [place], [place] [id number]. Madelynlorri [employer] Specimen Processing Direct Inoculation Normal [facility] Comment on above: Performed By: #### A FB ####[facility] Eutitdluai[address] [place] [phone]. Farhat Leal ACID FAST SMEAR AND CXon Acid Fast Culture Negative Normal [facility] Comment on above: Result Comment: No a abdiel fast bacilli isolated after 6 weeks. Performed By: #### A FB ####[facility] Icbwhmvpjy6[address] [place], [place] [id number]. Farhat Leal Acid Fast Smear Negative Normal [facility] Comment on above: Performed By: #### A FB ####[facility] Mtobpkmejx39[address] [place] [address]Dr. Farhat [employer] Specimen Processing Tissue Grinding Normal [facility] Comment on above: Performed By: #### A FB ####[facility] Njsdabhgve[address] [place] [address]Dr. Farhat Leal FUNGAL CULTUREon 01-02-2022 Fungus (Mycology) Culture Final report Normal [facility] Comment on above: Performed By: #### C XFUN ####[facility] Ocuubzwllu50[address] [place], [place] [address]Dr. Farhat Leal Fungus Stain Final report Normal [facility] Comment on above: Performed By: #### C XFUN ####[facility] Pegkpocswc8220[address] [place], [place] [address]Dr. Farhat Leal Result 1 Comment Normal [facility] Comment on above: Result Comment: ANNI/ Calcofluor preparation: no fungus observed. Performed By: #### C XFUN ####[facility] Xxteyapoid[address] [place], [place] [address]Dr. Farhat Leal Result Comment: No y east or mold isolated after 4 weeks. FK506 (TACROLIMUS) WHOLE BLO ODon 12-31-2021 Tacrolimus (FK506), Blood 7.7 ng/mL Normal 2.0-20.0 [facility] Comment on above: Result Comment: Trou gh (immediately following transplant) 15.0 . Trough (steady state, 2 weeks or more after transplant): 3.0 - 8.0 . Performed by LC-MS/MS technology. Performed By: #### F K506T ####[facility] Oufmfuejax[address] [place], [place] [address]Dr. Farhat Leal HEMOGRAM AND PLATELon 2021 Hematocrit (Bld) [Volume fraction] 27.1 % Critically low 42.0-54.0 [facility] Comment on above: Performed By: #### H H ####[facility] Moxcocfesl7940[address] [place], [place] [address]Dr. Farhat Leal Hemoglobin (Bld) [Mass/Vol] 8.7 g/dL Critically low 14.0-18.0 [facility] Comment on above: Performed By: #### H H ####[facility] T[address] [place] [address]DrSkylar Farhat Leal MCH (RBC) [Entitic mass] 30.3 pg Normal 25.9-34.0 [facility] Comment on above: Performed By: #### H H ####[facility] Wkltwswtka70[address] [place] [address]DrSkylar Farhat Leal MCHC (RBC) [Mass/Vol] 32.1 g/dL Normal 29.9-35.2 [facility] Comment on above: Performed By: #### H H ####[facility] Cyuirfamlu7[address] [place] [address]DrSkylar Farhat Leal MCV (RBC) [Entitic vol] 94.4 fL Critically high 80.0-94.0 [facility] Comment on above: Performed By: #### H H ####[facility] Cfzcohvknm[address] [place], [place] [address]DrSkylar Farhat Leal PLT 355 103/ul Normal 150-450 [facility] Comment on above: Performed By: #### H H ####[facility] Vqigynucgb[address] [place], [place] [address]DrSkylar Farhat Leal RBC 2.87 106/ul Critically low 4.70-6.10 [facility] Comment on above: Performed By: #### H H ####[facility] Uvqugczdqr8714 [place] [address]DrSkylar Farhat Leal WBC 6.0 103/ul Normal 4.0-11.0 [facility] Comment on above: Performed By: #### H H ####[facility] Gf[address]jnrolw7[address] [place] [address]DrSkylar Farhat [employer] PHOSPHORUSon 12-29-2021 Phosphate [Mass/Vol] 2.5 mg/dL Critically low 2.6-4.7 [facility] Comment on above: Performed By: #### P HOS, CMP ####[facility] Ipjpionnbi[address] [place], [place] [address]Dr. Farhat Leal PROF 14(COMP METB)on 022 Albumin [Mass/Vol] 1.7 g/dL Critically low 3.4-5.0 [facility] Comment on above: Performed By: #### P HOS, CMP ####[facility] S[address]vvkjenbp[address] [place] [address]Dr. Farhat Leal Albumin/Globulin [Mass ratio] 0.5 {ratio} Normal [facility] Comment on above: Performed By: #### P HOS, CMP ####[facility] Rzhwcvnxls1802 [place] [address]Dr. Farhat Leal ALP [Catalytic activity/Vol] 78 U/L Normal 46-116 [facility] Comment on above: Performed By: #### P HOS, CMP ####[facility] Kdsuoicsxe50[address] [place] [address]Dr. Farhat Leal ALT [Catalytic activity/Vol] 12 U/L Critically low 16-63 [facility] Comment on above: Performed By: #### P HOS, CMP ####[facility] Uddwndlnrm29[address] [place] [address]Dr. Farhat Leal Anion gap [Moles/Vol] 5.1 mmol/L Normal [facility] Comment on above: Performed By: #### P HOS, CMP ####[facility] Ujzlpmlgtt0615 [place] [address]Dr. Farhat Leal AST [Catalytic activity/Vol] 22 U/L Normal 15-37 [facility] Comment on above: Performed By: #### P HOS, CMP ####[facility] Vhqlohrqsy17[address] [place] [address]Dr. Farhat Leal Bilirubin [Mass/Vol] 0.6 mg/dL Normal 0.2-1.0 [facility] Comment on above: Performed By: #### P HOS, CMP ####[facility] Yguddmjcpo3808 [place] [address]Dr. Farhat Leal Calcium [Mass/Vol] 8.1 mg/dL Critically low 8.5-10.1 [facility] Comment on above: Performed By: #### P HOS, CMP ####[facility] Zfzixbisbp4686 [place] [address]Dr. Farhat Leal Chloride [Moles/Vol] 100 mmol/L Normal 98-107 [facility] Comment on above: Performed By: #### P HOS, CMP ####[facility] Wbyqdfkqdn2567 [place] [address]Dr. Farhat Leal CO2 [Moles/Vol] 34.2 mmol/L Critically high 21.0-32.0 [facility] Comment on above: Performed By: #### P HOS, CMP ####[facility] Ydqmotlyxa05[address] [place], [place] [address]Dr. Farhat Leal Creatinine [Mass/Vol] 0.92 mg/dL Normal 0.70-1.30 [facility] Comment on above: Performed By: #### P HOS, CMP ####[facility] Aybjaxjpow216[address] [place], [place] [address]Dr. Farhat eLal EGFR-AF KYRGYZ >60 Normal >=60 [facility] Comment on above: Performed By: #### P HOS, CMP ####[facility] Utvtiavewb418[address] [place], [place] [address]Dr. Farhat Leal EGFR-NON AF KYRGYZ >60 Normal >=60 [facility] Comment on above: Performed By: #### P HOS, CMP ####[facility] Wvksdmmvoa19[address] [place], [place] [address]Dr. Farhat Leal Globulin (S) [Mass/Vol] 3.3 g/dL Normal [facility] Comment on above: Performed By: #### P HOS, CMP ####[facility] Ckpskoyfwx13[address] [place], [place] [address]Dr. Farhat Leal Glucose [Mass/Vol] 116 mg/dL Critically high 74-106 T [facility] Comment on above: Performed By: #### P HOS, CMP ####[facility] Hnctwfussf6327[address] [place], [place] [address]Dr. Farhat Leal Potassium [Moles/Vol] 3.3 mmol/L Critically low 3.5-5.1 [facility] Comment on above: Performed By: #### P HOS, CMP ####[facility] Jldkcddirv9[address] [place] [address]Dr. Farhat Leal Protein [Mass/Vol] 5.0 g/dL Critically low 6.4-8.2 Th e [facility] Comment on above: Performed By: #### P HOS, CMP ####[facility] Wfcbburfxd3487 [place] [address]Dr. Farhat Leal Sodium [Moles/Vol] 136 mmol/L Normal 136-145 [facility] Comment on above: Performed By: #### P HOS, CMP ####[facility] Xjitftvdlr5592 [place] [address]Dr. Farhat Leal Urea nitrogen [Mass/Vol] 14.0 mg/dL Normal 7.0-18.0 [facility] Comment on above: Performed By: #### P HOS, CMP ####[facility] Wqvsfxcbsp[address] [place], [place] [address]Dr. Farhat Leal Urea nitrogen/Creatinine [Mass ratio] 15.2 mg/mg Normal [facility] Comment on above: Performed By: #### P HOS, CMP ####[facility] Jgaabarklj[address] [place], [place] [address]Dr. Farhat Leal PROTIMEon 12-29-2021 INR Coag (PPP) [Relative time] 1.26 {INR} Normal [facility] Comment on above: Performed By: #### P T ####[facility] Jglxhdrvvy425[address] [place], [place] [address]Dr. Farhat Leal INR GUIDELINES SEE BELOW Normal [facility] Comment on above: Result Comment: MALINA RED INR: 2.0 - 3.0 CONDITIONS NOT LISTED BELOW 2.5 - 3.5 FOR PROSTHETIC HEART VALVE REPLACEMENT 2.5 - 3.5 RECURRENT THROMBOSIS Performed By: #### P T ####[facility] Zxfhkrxvtg17[address] [place], [place] [address]Dr. Farhat Leal PT Coag (PPP) [Time] 13.4 s Critically high 9.0-11.6 [facility] Comment on above: Performed By: #### P T ####[facility] Ebqjqsjbja[address] [place] [address]Dr. Farhat Leal XR MODIFIED BARIUM SWALLOWon 12-25-2021 XR MODIFIED BARIUM SWALLOW Normal [facility] FUNGAL CULTUREon 12-24-2021 Fungus (Mycology) Culture Final report Normal [facility] Comment on above: Performed By: #### C XFUN ####[facility] Pugmmskfir15[address] [place], [place] [address]Dr. Farhat Leal Fungus Stain Final report Normal [facility] Comment on above: Performed By: #### C XFUN ####[facility] Qewdautqrs350[address] [place], [place] [address]Dr. Farhat Leal Result 1 Comment Normal [facility] Comment on above: Result Comment: ANNI/ Calcofluor preparation: no fungus observed. Performed By: #### C XFUN ####[facility] Xoxerymyhd077[address] [place], [place] [address]Dr. Farhat Leal Result Comment: No y east or mold isolated after 4 weeks. VANCOMYCIN TROUGHon 12-21-19 VANCOMYCIN TROUGH 14.4 ug/ml Normal 5.0-20.0 [facility] Comment on above: Performed By: #### V ANCT ####[facility] Kqnyhshhph[address] [place], [place] [address]Dr. Farhat Leal CBC AUTO DIFFon 12-14-2021 BASO # 0.0 103/ul Normal 0.0-0.1 [facility] Comment on above: Performed By: #### C BC ####[facility] Amvsxtruro7[address] [place], [place] [address]Dr. Farhat Leal Basophils/100 WBC (Bld) 0.2 % Normal 0.2-2.0 [facility] Comment on above: Performed By: #### C BC ####[facility] Glsepysghk15[address] [place], [place] [address]Dr. Farhat Leal EO # 0.2 103/ul Normal 0.0-0.7 [facility] Comment on above: Performed By: #### C BC ####[facility] Tqpdcfljpt[address] [place], [place] [address]Dr. Farhat Leal Eosinophils/100 WBC (Bld) 2.1 % Normal 0.9-7.0 [facility] Comment on above: Performed By: #### C BC ####[facility] Ggpzkiwpzk8[address] [place] [address]Dr. Farhat Leal Erythrocyte distribution width (RBC) [Ratio] 18.2 % Critically high 11.0-15.0 [facility] Comment on above: Performed By: #### C BC ####[facility] Fakkrqwmvf[address] [place], [place] [address]DrSkylar Leal Hematocrit (Bld) [Volume fraction] 25.8 % Critically low 42.0-54.0 [facility] Comment on above: Performed By: #### C BC ####[facility] Yajekpgygt[address] [place], [place] [address]DrSkylar Leal Hemoglobin (Bld) [Mass/Vol] 8.0 g/dL Critically low 14.0-18.0 [facility] Comment on above: Performed By: #### C BC ####[facility] Tzflcgqiaa[address] [place], [place] [address]DrSkylar Leal IG # 0.08 10e3/ul Critically high 0.00-0.03 [facility] Comment on above: Performed By: #### C BC ####[facility] Udvnvbaemt[address] [place], [place] [address]DrSkylar Leal IG % 0.7 % Critically high 0.0-0.[address] [facility] Comment on above: Performed By: #### C BC ####[facility] Boadzjduhs7[address] [place], [place] [address]DrSkylar Leal LYMPH # 0.9 103/ul Critically low 1.2-3.[address] [facility] Comment on above: Performed By: #### C BC ####[facility] Ushfxwscac[address] [place], [place] [address]DrSkylar Leal Lymphocytes/100 WBC (Bld) 8.7 % Critically low 20.5-60.0 [facility] Comment on above: Performed By: #### C BC ####[facility] Whzgvrifli0[address] [place], [place] [address]DrSkylar Leal MANUAL DIFF REQ NO Normal [facility] Comment on above: Performed By: #### C BC ####[facility] Tghbkalrsy4[address] [place] [id number] Leal MCH (RBC) [Entitic mass] 30.0 pg Normal 25.9-34.0 [facility] Comment on above: Performed By: #### C BC ####[facility] Cuucffszop9332 [place] [address]DrSkylar Leal MCHC (RBC) [Mass/Vol] 31.0 g/dL Normal 29.9-35.2 [facility] Comment on above: Performed By: #### C BC ####[facility] Bmuvpaxfsp[address] [place], [place] [address]DrSkylar Leal MCV (RBC) [Entitic vol] 96.6 fL Critically high 80.0-94.0 [facility] Comment on above: Performed By: #### C BC ####[facility] Nrgmmfsxkf[address] [place], [place] [address]DrSkylar Leal MONO # 0.7 103/ul Normal 0.3-0.8 [facility] Comment on above: Performed By: #### C BC ####[facility] Iaugazadrl167[address] [place], [place] [address]DrSkylar Leal Monocytes/100 WBC (Bld) 6.7 % Normal 1.7-12.0 [facility] Comment on above: Performed By: #### C BC ####[facility] Osrxliaxtk204[address] [place], [place] [address]DrSkylar Leal NEUT # 8.8 103/ul Critically high 1.4-6.5 [facility] Comment on above: Performed By: #### C BC ####[facility] Bpoquqmoyv[address] [place], [place] [address]DrSkylar Leal Neutrophils/100 WBC (Bld) 81.6 % Critically high 43.0-75.0 [facility] Comment on above: Performed By: #### C BC ####[facility] Tmnctrdobd[address] [place], [place] [address]DrSkylar Leal Platelet mean volume (Bld) [Entitic vol] 10.5 fL Normal 9.5-13.5 [facility] Comment on above: Performed By: #### C BC ####[facility] Qmkeizgrcc9512 [place] [address]Dr. Farhat Leal PLT 285 103/ul Normal 150-450 [facility] Comment on above: Performed By: #### C BC ####[facility] Ltbvmxlugy3474 [place] [address]Dr. Farhat Leal RBC 2.67 106/ul Critically low 4.70-6.[address] [facility] Comment on above: Performed By: #### C BC ####[facility] Koseaymokl3214 [place] [address]Dr. Farhat Leal WBC 10.7 103/ul Normal 4.0-11.0 [facility] Comment on above: Performed By: #### C BC ####[facility] Kwkbvvfmzs[address] [place], [place] [address]DrSkylar Leal PROF CHEM 8 (BAS METB)on Anion gap [Moles/Vol] 12.4 mmol/L Normal [facility] Comment on above: Performed By: #### B MP ####[facility] Qderykhtar[address] [place], [place] [address]Dr. Farhat Leal Calcium [Mass/Vol] 7.8 mg/dL Critically low 8.5-10.[address] [facility] Comment on above: Performed By: #### B MP ####[facility] Jcbavebnkj[address] [place], [place] [address]Dr. Farhat Leal Chloride [Moles/Vol] 102 mmol/L Normal 98-107 [facility] Comment on above: Performed By: #### B MP ####[facility] Suhqxpsumt[address] [place], [place] [address]DrSkylar Leal CO2 [Moles/Vol] 28.1 mmol/L Normal 21.0-32.0 [facility] Comment on above: Performed By: #### B MP ####[facility] Dzfzglhhuk[address] [place], [place] [address]Dr. Farhat Leal Creatinine [Mass/Vol] 1.24 mg/dL Normal 0.70-1.30 [facility] Comment on above: Performed By: #### B MP ####[facility] Nwznozalew98[address] [place] [address]Dr. Farhat Leal EGFR-AF KYRGYZ >60 Normal >=60 [facility] Comment on above: Performed By: #### B MP ####[facility] Edcwclpcqm404[address] [place], [place] [address]Dr. Farhat Leal EGFR-NON AF KYRGYZ 57 mL/min/1.73m2 Critically low >=60 [facility] Comment on above: Performed By: #### B MP ####[facility] Vbrvpieeva[address] [place], [place] [address]Dr. Farhat Leal Glucose [Mass/Vol] 296 mg/dL Critically high 74-106 T [facility] Comment on above: Performed By: #### B MP ####[facility] Kq[address] [place], [place] [address]Dr. Farhat Leal Potassium [Moles/Vol] 3.5 mmol/L Normal 3.5-5.1 [facility] Comment on above: Performed By: #### B MP ####[facility] Bgkpdejvky[address] [place], [place] [address]Dr. Farhat Leal Sodium [Moles/Vol] 139 mmol/L Normal 136-145 [facility] Comment on above: Performed By: #### B MP ####[facility] Vxkputdoqx[address] [place], [place] [address]Dr. Farhat Leal Urea nitrogen [Mass/Vol] 27.0 mg/dL Critically high 7.0-18.0 [facility] Comment on above: Performed By: #### B MP ####[facility] Tkurlzucbq[address] [place], [place] [address]Dr. Farhat Leal Urea nitrogen/Creatinine [Mass ratio] 21.8 mg/mg Normal [facility] Comment on above: Performed By: #### B MP ####[facility] Nuqwyfh[address] [place], [place] [address]DrSkylar Leal PROTIMEon 10-30-2022 INR Coag (PPP) [Relative time] 3.36 {INR} Normal [facility] Comment on above: Performed By: #### P T ####[facility] Zix[address] [place], [place] [address]ZiSkylar Leal INR GUIDELINES SEE BELOW Normal [facility] Comment on above: Result Comment: MALINA RED INR: 2.0 - 3.0 CONDITIONS NOT LISTED BELOW 2.5 - 3.5 FOR PROSTHETIC HEART VALVE REPLACEMENT 2.5 - 3.5 RECURRENT THROMBOSIS Performed By: #### P T ####[facility] Mdwxvaiuug5851 [place], [place] [address]DdSkylar Leal PT Coag (PPP) [Time] 33.5 s Critically high 9.0-11.6 [facility] Comment on above: Performed By: #### P T ####[facility] Rruqpbtofl[address] [place] [address]DrSkylar Leal XR CHEST 1 Von 12-14-2021 XR CHEST 1 V Normal [facility] No Panel Informationon 12-01 BLANK _ [facility] Implant Date 04/22/2012 [facility] CHECKon AMS Duration (ms) 5 of 8 [facility] AMS Fallback Rate (bpm) DDIR [facility] AV Delay Adaptive Paced Minimum (ms) 300 ms [facility] AV Delay Adaptive Rate Maximum (bpm) 130 {beats}/min [facility] AV Delay Adaptive Rate Minimum (bpm) 70 {beats}/min [facility] AV Delay Adaptive Sensed Minimum (ms) 300 ms [facility] AV Delay Paced (ms) 300 ms [facility] AV Delay Sensed (ms) 300 ms [facility] Jaciel LV Pacing Polarity Unknown [facility] Jaciel LV Sensing Polarity Unknown [facility] Jaciel RA Pacing Amplitude (volts) 2.4 V [facility] Jaciel RA Pacing Polarity BI [facility] Jaciel RA Pacing Pulse Width (ms) 0.4 ms [facility] Jaciel RA Sensing Amplitude (mvolts) AUTO [facility] Jaciel RA Sensing Blanking Period (ms) 56 ms [facility] Jaciel RA Sensing Polarity BI [facility] Jaciel RA Sensing Refractory Period (ms) AUTO [facility] Jaciel RV Pacing Amplitude (volts) 3.4 V [facility] Jaciel RV Pacing Polarity BI [facility] Jaciel RV Pacing Pulse Width (ms) 0.4 ms [facility] Jaciel RV Sensing Amplitude (mvolts) AUTO [facility] Jaciel RV Sensing Blanking Period (ms) 30 ms [facility] Jaciel RV Sensing Polarity BI [facility] Jaciel RV Sensing Refractory Period (ms) 250 ms [facility] Hysteresis Rate (bpm) 60 {beats}/min [facility] Lead1 Mfg SUZETTE [facility] Lead2 Mfg SUZETTE [facility] Location RA [facility] Location RV [facility] Lower Rate (bpm) 60 {beats}/min [facility] Max Sensor Rate (bmp) 130 {beats}/min [facility] Model 059239 [facility] CORTEZ [facility] Model 096691 [facility] Model [id number] [facility] Pacemaker Dependent? NO [facility] PM-Device Mfg BIO [facility] PM-PMT Intervention ON [facility] PM-PVC Intervention ON [facility] PM-Rate Modulation Acceleration Reaction 4 s [facility] PM-Rate Modulation Deceleration 0.5 m [facility] PM-Rate Modulation Cascade 23 [facility] PM-Rate Modulation Threshold Medium [facility] RA Bipolar Impedance ohms 448 ohm [facility] Rhythm AF with controlled ventricular rate. [facility] RV Bipolar Impedance ohms 390 ohm [facility] Serial Number [id number] [facility] Serial Number [id number] [facility] Serial Number [id number] [facility] Thresh RA Sensing Amplitude (mvolts) 2.4 mV [facility] Thresh RV Capture Amplitude (volts) 1.8 V [facility] Thresh RV Capture Duration (ms) 0.4 ms [facility] Thresh RV Sensing Amplitude (mvolts) 2.4 mV [facility] Tracking Rate (bpm) 160 {beats}/min [facility] BNPon 11-28-2021 Natriuretic peptide B (Bld) [Mass/Vol] 84563.0 pg/mL Critically high <=1,800.0 [facility] Comment on above: Performed By: #### C MP, BNP, CRP ####[facility] Qjpshudogz8710 [place] [address]Dr. Farhat Leal CBC AUTO DIFFon 11-28-2021 BASO # 0.0 103/ul Normal 0.0-0.1 [facility] Comment on above: Performed By: #### C BC ####[facility] Wvxmwokeyq0344 [place] [address]Dr. Farhat Leal Basophils/100 WBC (Bld) 0.3 % Normal 0.2-2.0 [facility] Comment on above: Performed By: #### C BC ####[facility] Kzqhjwklms7895 [place] [address]Dr. Farhat Leal EO # 0.1 103/ul Normal 0.0-0.7 [facility] Comment on above: Performed By: #### C BC ####[facility] Ihhliivdxa[address] [place], [place] [address]Dr. Farhat Leal Eosinophils/100 WBC (Bld) 1.0 % Normal 0.9-7.0 [facility] Comment on above: Performed By: #### C BC ####[facility] Ulnfrpkliy[address] [place], [place] [address]Dr. Farhat Leal Erythrocyte distribution width (RBC) [Ratio] 14.0 % Normal 11.0-15.0 [facility] Comment on above: Performed By: #### C BC ####[facility] Lhtsjolsan[address] [place], [place] [address]Dr. Farhat Leal Hematocrit (Bld) [Volume fraction] 27.6 % Critically low 42.0-54.0 [facility] Comment on above: Performed By: #### C BC ####[facility] Rzcgfcrnlc[address] [place], [place] [address]Dr. Farhat Leal Hemoglobin (Bld) [Mass/Vol] 9.0 g/dL Critically low 14.0-18.0 [facility] Comment on above: Performed By: #### C BC ####[facility] Jwdgxhtpgt[address] [place], [place] [address]Dr. Farhat Leal IG # 0.12 10e3/ul Critically high 0.00-0.03 [facility] Comment on above: Performed By: #### C BC ####[facility] Nedoulyvkh7[address] [place], [place] [address]Dr. Farhat Leal IG % 1.0 % Critically high 0.0-0.[address] [facility] Comment on above: Performed By: #### C BC ####[facility] Deztsihxfu3248 [place] [address]Dr. Farhat Leal LYMPH # 1.2 103/ul Normal 1.2-3.8 [facility] Comment on above: Performed By: #### C BC ####[facility] Jprgxzibkk6591 [place] [address]Dr. Farhat Leal Lymphocytes/100 WBC (Bld) 9.9 % Critically low 20.5-60.0 [facility] Comment on above: Performed By: #### C BC ####[facility] Pslfyvlyxk[address] [place], [place] [address]Dr. Farhat Leal MANUAL DIFF REQ NO Normal [facility] Comment on above: Performed By: #### C BC ####[facility] Vpziwfbqvx80[address] [place], [place] [address]Dr. Farhat Leal MCH (RBC) [Entitic mass] 30.0 pg Normal 25.9-34.0 [facility] Comment on above: Performed By: #### C BC ####[facility] Lttecmswyi48[address] [place], [place] [address]Dr. Farhat Leal MCHC (RBC) [Mass/Vol] 32.6 g/dL Normal 29.9-35.2 [facility] Comment on above: Performed By: #### C BC ####[facility] Atftwtjlfa[address] [place], [place] [address]Dr. Farhat Leal MCV (RBC) [Entitic vol] 92.0 fL Normal 80.0-94.0 [facility] Comment on above: Performed By: #### C BC ####[facility] Nahnvikoog[address] [place], [place] [address]Dr. Farhat Leal MONO # 1.1 103/ul Critically high 0.3-0.8 [facility] Comment on above: Performed By: #### C BC ####[facility] Cnysakmcgr[address] [place], [place] [address]Dr. Farhat Leal Monocytes/100 WBC (Bld) 9.3 % Normal 1.7-12.0 [facility] Comment on above: Performed By: #### C BC ####[facility] Rvorbhbpik2924 [place] [address]Dr. Farhat Leal NEUT # 9.3 103/ul Critically high 1.4-6.5 [facility] Comment on above: Performed By: #### C BC ####[facility] Zoitrzpywx9857 [place] [address]Dr. Farhat Leal Neutrophils/100 WBC (Bld) 78.5 % Critically high 43.0-75.0 [facility] Comment on above: Performed By: #### C BC ####[facility] Djzocrojiz9323 [place] [address]Dr. Farhat Leal Platelet mean volume (Bld) [Entitic vol] 9.6 fL Normal 9.5-13.5 [facility] Comment on above: Performed By: #### C BC ####[facility] Qzmeijnwgy[address] [place], [place] [address]Dr. Farhat Leal PLT 357 103/ul Normal 150-450 [facility] Comment on above: Performed By: #### C BC ####[facility] Hsxqzbqjnm[address] [place], [place] [address]Dr. Farhat Leal RBC 3.00 106/ul Critically low 4.70-6.10 [facility] Comment on above: Performed By: #### C BC ####[facility] Q[address]akajyx[address] [place] [phone]. Farhat Leal WBC 11.8 103/ul Critically high 4.0-11.0 [facility] Comment on above: Performed By: #### C BC ####[facility] Ekhtijitpz5470 [place] [phone]. Farhat Elvis CRPon 11-28-2021 CRP 20.9 mg/dL Critically high <=1.0 [facility] Comment on above: Performed By: #### C MP, BNP, CRP ####[facility] Glyzcqqebb39[address] [place] [phone]. Farhat Elvis CULTURE OTHERon 11-28-2021 CULTURE OTHER Normal [facility] Comment on above: Performed By: #### O THCX ####[facility] Nwwuytboju6616 [place] [address]Dr. Farhat Lael CULTURE OTHER Normal [facility] Comment on above: Performed By: #### O THCX ####[facility] Zxmlhcbjzh5661 [place] [address]Dr. Farhat Leal PROF 14(COMP METB)on 022 Albumin [Mass/Vol] 1.4 g/dL Critically low 3.4-5.0 [facility] Comment on above: Performed By: #### C MP, BNP, CRP ####[facility] Buisyrrlvj3270 [place] [address]Dr. Farhat Leal Albumin/Globulin [Mass ratio] 0.4 {ratio} [facility] Comment on above: Performed By: #### C MP, BNP, CRP ####[facility] Roonodzuvo98[address] [place], [place] [address]Dr. Farhat Leal ALP [Catalytic activity/Vol] 82 U/L Normal 46-116 [facility] Comment on above: Performed By: #### C MP, BNP, CRP ####[facility] Wpuhxcjrnp[address] [place], [place] [address]Dr. Farhat Leal ALT [Catalytic activity/Vol] 20 U/L Normal 16-63 [facility] Comment on above: Performed By: #### C MP, BNP, CRP ####[facility] Rdfywkhkah0054 [place] [address]Dr. Farhat Leal Anion gap [Moles/Vol] 13.0 mmol/L Normal Th [facility] Comment on above: Performed By: #### C MP, BNP, CRP ####[facility] Lwegiszduy8437 [place] [address]Dr. Farhat Leal AST [Catalytic activity/Vol] 33 U/L Normal 15-37 [facility] Comment on above: Performed By: #### C MP, BNP, CRP ####[facility] Dsqwvrwrkz5540 [place] [address]Dr. Farhat Leal Bilirubin [Mass/Vol] 0.7 mg/dL Normal 0.2-1.0 [facility] Comment on above: Performed By: #### C MP, BNP, CRP ####[facility] Cezlkamekx7164 [place] [address]Dr. Farhat Leal Calcium [Mass/Vol] 8.4 mg/dL Critically low 8.5-10.1 Th e [facility] Comment on above: Performed By: #### C MP, BNP, CRP ####[facility] Levqirkyzq[address] [place], [place] [address]Dr. Farhat Leal Chloride [Moles/Vol] 100 mmol/L Normal 98-107 [facility] Comment on above: Performed By: #### C MP, BNP, CRP ####[facility] Ufomsyhvne[address] [place], [place] [address]Dr. Farhat Leal CO2 [Moles/Vol] 23.7 mmol/L Normal 21.0-32.0 [facility] Comment on above: Performed By: #### C MP, BNP, CRP ####[facility] Ntyerhdfej75[address] [place], [place] [address]Dr. Farhat Leal Creatinine [Mass/Vol] 1.70 mg/dL Critically high 0.70-1.30 [facility] Comment on above: Performed By: #### C MP, BNP, CRP ####[facility] Kceqgzforo[address] [place], [place] [address]Dr. Farhat Leal EGFR-AF KYRGYZ 48 mL/min/1.73m2 Critically low >=60 [facility] Comment on above: Performed By: #### C MP, BNP, CRP ####[facility] Wvdeykapmi[address] [place], [place] [address]Dr. Farhat Leal EGFR-NON AF KYRGYZ 39 mL/min/1.73m2 Critically low >=60 [facility] Comment on above: Performed By: #### C MP, BNP, CRP ####[facility] Aicafrkomt[address] [place], [place] [address]Dr. Farhat Leal Globulin (S) [Mass/Vol] 3.6 g/dL Normal [facility] Comment on above: Performed By: #### C MP, BNP, CRP ####[facility] Rabfpwoqgb0323 [place] [address]Dr. Farhat Leal Glucose [Mass/Vol] 232 mg/dL Critically high 74-106 T [facility] Comment on above: Performed By: #### C MP, BNP, CRP ####[facility] Ggzsazloux1660 [place] [address]Dr. Farhat Leal Potassium [Moles/Vol] 3.7 mmol/L Normal 3.5-5.1 [facility] Comment on above: Performed By: #### C MP, BNP, CRP ####[facility] Ckdlagkbbi[address] [place], [place] [address]Dr. Farhat Leal Protein [Mass/Vol] 5.0 g/dL Critically low 6.4-8.2 Th [facility] Comment on above: Performed By: #### C MP, BNP, CRP ####[facility] Rfedewnvbi[address] [place], [place] [address]Dr. Farhat Leal Sodium [Moles/Vol] 133 mmol/L Critically low 136-145 Th [facility] Comment on above: Performed By: #### C MP, BNP, CRP ####[facility] Xnbvywpsyk117[address] [place], [place] [address]Dr. Farhat Leal Urea nitrogen [Mass/Vol] 52.0 mg/dL Critically high 7.0-18.0 [facility] Comment on above: Performed By: #### C MP, BNP, CRP ####[facility] Mdfcloqqek4620[address] [place], [place] [address]Dr. Farhat Leal Urea nitrogen/Creatinine [Mass ratio] 30.6 mg/mg Normal [facility] Comment on above: Performed By: #### C MP, BNP, CRP ####[facility] Nigsgeifpn[address] [place], [place] [address]Dr. Farhat Leal PROTIMEon 11-28-2021 INR Coag (PPP) [Relative time] 1.29 {INR} Normal [facility] Comment on above: Performed By: #### P T ####[facility] Juadityccu[address] [place], [place] [address]Dr. Farhat Leal INR GUIDELINES SEE BELOW Normal [facility] Comment on above: Result Comment: MALINA RED INR: 2.0 - 3.0 CONDITIONS NOT LISTED BELOW 2.5 - 3.5 FOR PROSTHETIC HEART VALVE REPLACEMENT 2.5 - 3.5 RECURRENT THROMBOSIS Performed By: #### P T ####[facility] Fjnvgcofwt2828 [place] [address]Dr. Farhat Leal PT Coag (PPP) [Time] 13.7 s Critically high 9.0-11.6 [facility] Comment on above: Performed By: #### P T ####[facility] Ufozaqyncw[address] [place], [place] [address]Dr. Farhat Leal SED RATE WESTERGREN 2021 SED RATE 77 mm/hr Critically high <=[address] [facility] Comment on above: Performed By: #### S EDR ####[facility] Boanigcfqc[address] [place], [place] [address]Dr. Farhat Leal XR CHEST 2 Von 11-28-2021 XR CHEST 2 V Normal [facility] BNPon 11-27-2021 Natriuretic peptide B (Bld) [Mass/Vol] 34834.0 pg/mL Critically high <=1,800.0 [facility] Comment on above: Performed By: #### B RESEARCH SUPPORT SPECIALIST, CMP, CRP ####[facility] Rvftcyipro[address] [place], [place] [address]Dr. Farhat Leal CBC AUTO DIFFon 11-27-2021 BASO # 0.0 103/ul Normal 0.0-0.1 [facility] Comment on above: Performed By: #### C BC ####[facility] W[address]whwbdhxv[address] [place], [place] [address]Dr. Farhat Leal Basophils/100 WBC (Bld) 0.2 % Normal 0.2-2.0 [facility] Comment on above: Performed By: #### C BC ####[facility] Fzujibyicv[address] [place], [place] [address]Dr. Farhat Leal EO # 0.2 103/ul Normal 0.0-0.7 [facility] Comment on above: Performed By: #### C BC ####[facility] Wgbkvaljvp1486 [place] [phone]. Farhat Leal Eosinophils/100 WBC (Bld) 1.9 % Normal 0.9-7.0 [facility] Comment on above: Performed By: #### C BC ####[facility] K[address]asfqyrp97[address] [place] [phone]. Farhat Leal Erythrocyte distribution width (RBC) [Ratio] 13.9 % Normal 11.0-15.0 [facility] Comment on above: Performed By: #### C BC ####[facility] Xeojiunskh2664 [place] [address]Dr. Farhat Leal Hematocrit (Bld) [Volume fraction] 28.7 % Critically low 42.0-54.0 [facility] Comment on above: Performed By: #### C BC ####[facility] Gzgslvdqpi86[address] [place], [place] [address]Dr. Farhat Leal Hemoglobin (Bld) [Mass/Vol] 9.3 g/dL Critically low 14.0-18.0 [facility] Comment on above: Performed By: #### C BC ####[facility] Zjijjhphob[address] [place], [place] [address]Dr. Farhat Leal IG # 0.14 10e3/ul Critically high 0.00-0.03 [facility] Comment on above: Performed By: #### C BC ####[facility] Ceubmefuyb[address] [place], [place] [address]Dr. Farhat Leal IG % 1.2 % Critically high 0.0-0.5 [facility] Comment on above: Performed By: #### C BC ####[facility] Zrknfssemh213[address] [place], [place] [address]Dr. Farhat Leal LYMPH # 1.1 103/ul Critically low 1.2-3.[address] [facility] Comment on above: Performed By: #### C BC ####[facility] Jqhsafnpxx[address] [place], [place] [address]Dr. Farhat Leal Lymphocytes/100 WBC (Bld) 9.4 % Critically low 20.5-60.0 [facility] Comment on above: Performed By: #### C BC ####[facility] Cqaqtelpvp8381 [place] [phone]. Farhat Leal MANUAL DIFF REQ NO Normal [facility] Comment on above: Performed By: #### C BC ####[facility] Tbyaxcyhdr0819 [place] [phone]. Farhat Leal MCH (RBC) [Entitic mass] 29.7 pg Normal 25.9-34.0 [facility] Comment on above: Performed By: #### C BC ####[facility] Ohxowcamvv7756 [place] [phone]. Farhat Leal MCHC (RBC) [Mass/Vol] 32.4 g/dL Normal 29.9-35.2 [facility] Comment on above: Performed By: #### C BC ####[facility] Xlhahtnosn[address] [place], [place] [address]Dr. Farhat Leal MCV (RBC) [Entitic vol] 91.7 fL Normal 80.0-94.0 [facility] Comment on above: Performed By: #### C BC ####[facility] Iabclwanus[address] [place], [place] [address]Dr. Farhat Leal MONO # 1.1 103/ul Critically high 0.3-0.8 [facility] Comment on above: Performed By: #### C BC ####[facility] Jobkuyekuk[address] [place], [place] [address]Dr. Farhat Leal Monocytes/100 WBC (Bld) 9.7 % Normal 1.7-12.0 [facility] Comment on above: Performed By: #### C BC ####[facility] [address]arwmxz[address] [place], [place] [address]DrSkylar Leal NEUT # 9.2 103/ul Critically high 1.4-6.5 [facility] Comment on above: Performed By: #### C BC ####[facility] Spaxlwigln[address] [place], [place] [address]DrSkylar Leal Neutrophils/100 WBC (Bld) 77.6 % Critically high 43.0-75.0 [facility] Comment on above: Performed By: #### C BC ####[facility] Rrdldqhaqj5421 [place] [phone]. Farhat Leal Platelet mean volume (Bld) [Entitic vol] 9.5 fL Normal 9.5-13.5 [facility] Comment on above: Performed By: #### C BC ####[facility] Wezktsrzqy4654 [place] [phone]. Farhat Leal PLT 375 103/ul Normal 150-450 [facility] Comment on above: Performed By: #### C BC ####[facility] Hxmiychadq8857 [place] [phone]. Farhat Leal RBC 3.13 106/ul Critically low 4.70-6.[address] [facility] Comment on above: Performed By: #### C BC ####[facility] Wibfqabvbu6772 [place] [phone]. Farhat Leal WBC 11.8 103/ul Critically high 4.0-11.0 [facility] Comment on above: Performed By: #### C BC ####[facility] Kynfzjfzec7629 [place] [phone]. Farhat Leal CRPon 11-27-2021 CRP 24.5 mg/dL Critically high <=1.[address] [facility] Comment on above: Performed By: #### B RESEARCH SUPPORT SPECIALIST, CMP, CRP ####[facility] Tuucoboljd0703 [place] [phone]. Farhat Leal CULTURE OTHERon 11-27-2021 CULTURE OTHER Normal [facility] Comment on above: Performed By: #### O THCX ####[facility] Jtlxhriuub3167 [place] [phone]. Farhat Leal CULTURE OTHER Normal [facility] Comment on above: Performed By: #### O THCX ####[facility] Vvgkmerqsk8503 [place] [phone]. Farhat Leal CULTURE WOUNDon 11-27-2021 CULTURE WOUND Normal [facility] Comment on above: Performed By: #### W OUNDCX ####[facility] Zifjxzpyqz3996 [place] [address]Dr. Farhat Leal POINT OF CARE GLUCOSEon 11-15 Glucose [Mass/Vol] 147 mg/dL Critically high 74-106 T [facility] Comment on above: Performed By: #### P OCGLUC ####[facility] Mxnujrbqcw2914 [place] [address]Dr. Farhat Leal PROF 14(COMP METB)on 022 Albumin [Mass/Vol] 1.4 g/dL Critically low 3.4-5.0 [facility] Comment on above: Performed By: #### B RESEARCH SUPPORT SPECIALIST, CMP, CRP ####[facility] Lrpjvmcplp4951 [place] [address]Dr. Farhat Leal Albumin/Globulin [Mass ratio] 0.4 {ratio} Normal [facility] Comment on above: Performed By: #### B RESEARCH SUPPORT SPECIALIST, CMP, CRP ####[facility] Rnhsnofyge[address] [place], [place] [address]Dr. Farhat Leal ALP [Catalytic activity/Vol] 82 U/L Normal 46-116 [facility] Comment on above: Performed By: #### B RESEARCH SUPPORT SPECIALIST, CMP, CRP ####[facility] Vzpvfjztdt[address] [place], [place] [address]Dr. Frahat Leal ALT [Catalytic activity/Vol] 22 U/L Normal 16-63 [facility] Comment on above: Performed By: #### B RESEARCH SUPPORT SPECIALIST, CMP, CRP ####[facility] Urybgjmhvu3233 [place] [address]Dr. Farhat Leal Anion gap [Moles/Vol] 14.2 mmol/L Normal [facility] Comment on above: Performed By: #### B RESEARCH SUPPORT SPECIALIST, CMP, CRP ####[facility] Rhsgwndvyx5529 [place] [address]Dr. Farhat Leal AST [Catalytic activity/Vol] 35 U/L Normal 15-37 [facility] Comment on above: Performed By: #### B RESEARCH SUPPORT SPECIALIST, CMP, CRP ####[facility] Z[address]wgnezwm[address] [place], [place] [address]Dr. Farhat Leal Bilirubin [Mass/Vol] 0.7 mg/dL Normal 0.2-1.0 [facility] Comment on above: Performed By: #### B RESEARCH SUPPORT SPECIALIST, CMP, CRP ####[facility] Xkehkmxvnr[address] [place] [address]Dr. Farhat Leal Calcium [Mass/Vol] 8.2 mg/dL Critically low 8.5-10.1 Th e [facility] Comment on above: Performed By: #### B RESEARCH SUPPORT SPECIALIST, CMP, CRP ####[facility] Hxsznjhzgk[address] [place], [place] [address]Dr. Farhat Leal Chloride [Moles/Vol] 99 mmol/L Normal 98-107 [facility] Comment on above: Performed By: #### B RESEARCH SUPPORT SPECIALIST, CMP, CRP ####[facility] Uxlotttxwo[address] [place], [place] [address]Dr. Farhat Leal CO2 [Moles/Vol] 22.6 mmol/L Normal 21.0-32.0 [facility] Comment on above: Performed By: #### B RESEARCH SUPPORT SPECIALIST, CMP, CRP ####[facility] Tnrvkgwipl[address] [place], [place] [address]Dr. Farhat Leal Creatinine [Mass/Vol] 1.73 mg/dL Critically high 0.70-1.30 [facility] Comment on above: Performed By: #### B RESEARCH SUPPORT SPECIALIST, CMP, CRP ####[facility] Cjmtsnhtov[address] [place], [place] [address]Dr. Farhat Leal EGFR-AF KYRGYZ 47 mL/min/1.73m2 Critically low >=60 [facility] Comment on above: Performed By: #### B RESEARCH SUPPORT SPECIALIST, CMP, CRP ####[facility] Upbfcvooeu[address] [place], [place] [address]Dr. Farhat Leal EGFR-NON AF KYRGYZ 38 mL/min/1.73m2 Critically low >=60 [facility] Comment on above: Performed By: #### B RESEARCH SUPPORT SPECIALIST, CMP, CRP ####[facility] Bhviznddin[address] [place], [place] [address]Dr. Farhat Leal Globulin (S) [Mass/Vol] 3.7 g/dL Normal [facility] Comment on above: Performed By: #### B RESEARCH SUPPORT SPECIALIST, CMP, CRP ####[facility] Kmdducjbys[address] [place] [address]Dr. Farhat Leal Glucose [Mass/Vol] 220 mg/dL Critically high 74-106 T [facility] Comment on above: Performed By: #### B RESEARCH SUPPORT SPECIALIST, CMP, CRP ####[facility] Tbsqcaithp48[address] [place] [address]Dr. Farhat Leal Potassium [Moles/Vol] 3.8 mmol/L Normal 3.5-5.1 [facility] Comment on above: Performed By: #### B RESEARCH SUPPORT SPECIALIST, CMP, CRP ####[facility] Gnpicpltvv9[address] [place] [address]Dr. Farhat Leal Protein [Mass/Vol] 5.1 g/dL Critically low 6.4-8.2 Th [facility] Comment on above: Performed By: #### B RESEARCH SUPPORT SPECIALIST, CMP, CRP ####[facility] Fhvghelfju6[address] [place], [place] [address]Dr. Farhat Leal Sodium [Moles/Vol] 132 mmol/L Critically low 136-145 Th [facility] Comment on above: Performed By: #### B RESEARCH SUPPORT SPECIALIST, CMP, CRP ####[facility] Ugpjowitqp[address] [place], [place] [address]Dr. Farhat Leal Urea nitrogen [Mass/Vol] 49.0 mg/dL Critically high 7.0-18.0 [facility] Comment on above: Performed By: #### B RESEARCH SUPPORT SPECIALIST, CMP, CRP ####[facility] Prtcbzsffj14[address] [place], [place] [address]Dr. Farhat Leal Urea nitrogen/Creatinine [Mass ratio] 28.3 mg/mg Normal [facility] Comment on above: Performed By: #### B RESEARCH SUPPORT SPECIALIST, CMP, CRP ####[facility] Ytkrxgnmry77[address] [place], [place] [address]Dr. Farhat Leal PROTIMEon 11-27-2021 INR Coag (PPP) [Relative time] 1.25 {INR} Normal [facility] Comment on above: Performed By: #### P T ####[facility] Xrwxxjpwuw[address] [place], [place] [address]Dr. Farhat Leal INR GUIDELINES SEE BELOW Normal [facility] Comment on above: Result Comment: MALINA RED INR: 2.0 - 3.0 CONDITIONS NOT LISTED BELOW 2.5 - 3.5 FOR PROSTHETIC HEART VALVE REPLACEMENT 2.5 - 3.5 RECURRENT THROMBOSIS Performed By: #### P T ####[facility] Hahoxcpfyj60[address] [place] [address]Dr. Farhat Leal PT Coag (PPP) [Time] 13.3 s Critically high 9.0-11.6 [facility] Comment on above: Performed By: #### P T ####[facility] Nnxaeinmfe[address] [place], [place] [address]Dr. Farhat Leal [facility] 60 mm/hr Critically high <=[address] [facility] Comment on above: Performed By: #### S EDR ####[facility] Nmkpsxnujq8[address] [place], [place] [address]Dr. Farhat Leal VANCOMYCIN TROUGHon 11-28-19 22 VANCOMYCIN TROUGH 21.2 ug/ml Critically high 5.0-20.0 Th [facility] Comment on above: Performed By: #### V ANCT ####[facility] Kgsjgelzcl[address] [place], [place] [address]Dr. Farhat Leal XR CHEST 1 Von 11-27-2021 XR CHEST 1 V Normal [facility] BNPon 11-26-2021 Natriuretic peptide B (Bld) [Mass/Vol] 50048.0 pg/mL Critically high <=1,800.0 [facility] Comment on above: Performed By: #### B RESEARCH SUPPORT SPECIALIST, CRP, CMP ####[facility] Mtyihkunvf02[address] [place] [address]DrSkylar Leal CBC AUTO DIFFon 11-26-2021 BASO # 0.0 103/ul Normal 0.0-0.1 [facility] Comment on above: Performed By: #### C BC ####[facility] Uqwdsiiasc[address] [place], [place] [address]DrSkylar Leal Basophils/100 WBC (Bld) 0.2 % Normal 0.2-2.0 [facility] Comment on above: Performed By: #### C BC ####[facility] J[address]rakieluh[address] [place] [phone]. Farhat Leal EO # 0.0 103/ul Normal 0.0-0.7 [facility] Comment on above: Performed By: #### C BC ####[facility] Zemcvrysme59[address] [place] [phone]. Farhat Leal Eosinophils/100 WBC (Bld) 0.3 % Critically low 0.9-7.0 [facility] Comment on above: Performed By: #### C BC ####[facility] Ufpyqmmdvm2684 [place] [address]Dr. Farhat Leal Erythrocyte distribution width (RBC) [Ratio] 13.9 % Normal 11.0-15.0 [facility] Comment on above: Performed By: #### C BC ####[facility] Prbbtiiedx6[address] [place], [place] [address]Dr. Farhat Leal Hematocrit (Bld) [Volume fraction] 27.3 % Critically low 42.0-54.0 [facility] Comment on above: Performed By: #### C BC ####[facility] Chptlcsbex32[address] [place], [place] [address]Dr. Farhat Leal Hemoglobin (Bld) [Mass/Vol] 8.8 g/dL Critically low 14.0-18.0 [facility] Comment on above: Performed By: #### C BC ####[facility] Reqcqllufn[address] [place], [place] [address]Dr. Farhat Leal IG # 0.17 10e3/ul Critically high 0.00-0.03 [facility] Comment on above: Performed By: #### C BC ####[facility] Zbgucznzwq06[address] [place], [place] [address]Dr. Farhat Leal IG % 1.2 % Critically high 0.0-0.5 [facility] Comment on above: Performed By: #### C BC ####[facility] Eaehwrkpau92[address] [place], [place] [address]DrSkylar Leal LYMPH # 0.7 103/ul Critically low 1.2-3.8 [facility] Comment on above: Performed By: #### C BC ####[facility] Rlkwaqbqde6093 [place] [address]Dr. Farhat Leal Lymphocytes/100 WBC (Bld) 4.8 % Critically low 20.5-60.0 [facility] Comment on above: Performed By: #### C BC ####[facility] Mppdtklqmb5254 [place] [address]Dr. Farhat Leal MANUAL DIFF REQ NO Normal [facility] Comment on above: Performed By: #### C BC ####[facility] Uitbsqjojs76[address] [place] [address]Dr. Farhat Leal MCH (RBC) [Entitic mass] 29.9 pg Normal 25.9-34.0 [facility] Comment on above: Performed By: #### C BC ####[facility] Buzxjwezsn[address] [place], [place] [address]Dr. Farhat Leal MCHC (RBC) [Mass/Vol] 32.2 g/dL Normal 29.9-35.2 [facility] Comment on above: Performed By: #### C BC ####[facility] Mltiyxqedi4[address] [place], [place] [address]Dr. Farhat Lael MCV (RBC) [Entitic vol] 92.9 fL Normal 80.0-94.0 [facility] Comment on above: Performed By: #### C BC ####[facility] Izbqblkbdd0475 [place] [address]Dr. Farhat Leal MONO # 1.3 103/ul Critically high 0.3-0.[address] [facility] Comment on above: Performed By: #### C BC ####[facility] Lpidtwdoeb[address] [place], [place] [address]Dr. Farhat Leal Monocytes/100 WBC (Bld) 9.6 % Normal 1.7-12.0 [facility] Comment on above: Performed By: #### C BC ####[facility] Vardxhqpea06[address] [place], [place] [address]Dr. Farhat Leal NEUT # 11.4 103/ul Critically high 1.4-6.5 [facility] Comment on above: Performed By: #### C BC ####[facility] Mcgyvxovyx[address] [place] [address]Dr. Farhat Leal Neutrophils/100 WBC (Bld) 83.9 % Critically high 43.0-75.0 [facility] Comment on above: Performed By: #### C BC ####[facility] Juoacaehxd[address] [place] [address]Dr. Madelynlorri Elvis Platelet mean volume (Bld) [Entitic vol] 9.6 fL Normal 9.5-13.5 [facility] Comment on above: Performed By: #### C BC ####[facility] Dbsnzmndjz1423 [place] [address]Dr. Farhat Leal PLT 395 103/ul Normal 150-450 [facility] Comment on above: Performed By: #### C BC ####[facility] Glxhnkxbui0479 [place] [address]Dr. Farhat Leal RBC 2.94 106/ul Critically low 4.70-6.[address] [facility] Comment on above: Performed By: #### C BC ####[facility] Prfwodyzoa[address] [place], [place] [address]Dr. Madelynlorri Elvis WBC 13.6 103/ul Critically high 4.0-11.0 [facility] Comment on above: Performed By: #### C BC ####[facility] Vgtogbarbh9187 [place] [address]Dr. Farhat Leal CRPon 11-26-2021 CRP [Mass/Vol] mg/L Critically high <=1.0 [facility] Comment on above: Performed By: #### B RESEARCH SUPPORT SPECIALIST, CRP, CMP ####[facility] Nlyqprudwx1172 [place] [address]Dr. Farhat Leal PROF 14(COMP METB)on 022 Albumin [Mass/Vol] 1.5 g/dL Critically low 3.4-5.[address] [facility] Comment on above: Performed By: #### B RESEARCH SUPPORT SPECIALIST, CRP, CMP ####[facility] Thosgpilsl55[address] [place] [address]Dr. Farhat Leal Albumin/Globulin [Mass ratio] 0.4 {ratio} Normal [facility] Comment on above: Performed By: #### B RESEARCH SUPPORT SPECIALIST, CRP, CMP ####[facility] Dgssriafoh2780 [place] [address]Dr. Farhat Leal ALP [Catalytic activity/Vol] 88 U/L Normal 46-116 [facility] Comment on above: Performed By: #### B RESEARCH SUPPORT SPECIALIST, CRP, CMP ####[facility] Mbhgtwkvwt[address] [place], [place] [address]Dr. Farhat Elvis ALT [Catalytic activity/Vol] 29 U/L Normal 16-63 [facility] Comment on above: Performed By: #### B RESEARCH SUPPORT SPECIALIST, CRP, CMP ####[facility] Nxohxcxfaw[address] [place], [place] [address]Dr. Farhat Leal Anion gap [Moles/Vol] 13.3 mmol/L Normal [facility] Comment on above: Performed By: #### B RESEARCH SUPPORT SPECIALIST, CRP, CMP ####[facility] Lpcmpdtrcs[address] [place], [place] [address]Dr. Farhat Leal AST [Catalytic activity/Vol] 32 U/L Normal 15-37 [facility] Comment on above: Performed By: #### B RESEARCH SUPPORT SPECIALIST, CRP, CMP ####[facility] Gkkpiunbta9737[address] [place], [place] [address]Dr. Madelynlorri Leal Bilirubin [Mass/Vol] 0.6 mg/dL Normal 0.2-1.0 [facility] Comment on above: Performed By: #### B RESEARCH SUPPORT SPECIALIST, CRP, CMP ####[facility] Hthxmqhgfi44[address] [place], [place] [address]Dr. Farhat Elvis Calcium [Mass/Vol] 8.0 mg/dL Critically low 8.5-10.[address] [facility] Comment on above: Performed By: #### B RESEARCH SUPPORT SPECIALIST, CRP, CMP ####[facility] Fuppwbuqft56[address] [place], [place] [address]Dr. Farhat Leal Chloride [Moles/Vol] 98 mmol/L Normal 98-107 [facility] Comment on above: Performed By: #### B RESEARCH SUPPORT SPECIALIST, CRP, CMP ####[facility] Kuvtmededk9[address] [place] [address]Dr. Farhat Leal CO2 [Moles/Vol] 23.7 mmol/L Normal 21.0-32.0 [facility] Comment on above: Performed By: #### B RESEARCH SUPPORT SPECIALIST, CRP, CMP ####[facility] Dwaphirzje5[address] [place], [place] [address]Dr. Farhat Leal Creatinine [Mass/Vol] 2.08 mg/dL Critically high 0.70-1.30 [facility] Comment on above: Performed By: #### B RESEARCH SUPPORT SPECIALIST, CRP, CMP ####[facility] Tudvbrnrkj[address] [place], [place] [address]Dr. Farhat Elvis EGFR-AF KYRGYZ 38 mL/min/1.73m2 Critically low >=60 [facility] Comment on above: Performed By: #### B RESEARCH SUPPORT SPECIALIST, CRP, CMP ####[facility] Ysygvviuql6[address] [place], [place] [address]Dr. Madelynlorri Elvis EGFR-NON AF KYRGYZ 31 mL/min/1.73m2 Critically low >=60 [facility] Comment on above: Performed By: #### B RESEARCH SUPPORT SPECIALIST, CRP, CMP ####[facility] Dzswpwvfmc178[address] [place], [place] [address]Dr. Farhat Elvis Globulin (S) [Mass/Vol] 3.7 g/dL Normal [facility] Comment on above: Performed By: #### B RESEARCH SUPPORT SPECIALIST, CRP, CMP ####[facility] Dnmyayglmk1707[address] [place], [place] [address]Dr. Farhat Elvis Glucose [Mass/Vol] 315 mg/dL Critically high 74-106 T [facility] Comment on above: Performed By: #### B RESEARCH SUPPORT SPECIALIST, CRP, CMP ####[facility] Mvzmlprmjg400[address] [place], [place] [address]Dr. Farhat Leal Potassium [Moles/Vol] 4.0 mmol/L Normal 3.5-5.1 [facility] Comment on above: Performed By: #### B RESEARCH SUPPORT SPECIALIST, CRP, CMP ####[facility] Feauuoprin9045[address] [place], [place] [address]Dr. Farhat Leal Protein [Mass/Vol] 5.2 g/dL Critically low 6.4-8.2 Th [facility] Comment on above: Performed By: #### B RESEARCH SUPPORT SPECIALIST, CRP, CMP ####[facility] Ubrjqjnymi6228 [place] [address]Dr. Farhat Leal Sodium [Moles/Vol] 131 mmol/L Critically low 136-145 Th [facility] Comment on above: Performed By: #### B RESEARCH SUPPORT SPECIALIST, CRP, CMP ####[facility] Pjpwqsafxh69[address] [place], [place] [address]Dr. Farhat Leal Urea nitrogen [Mass/Vol] 50.0 mg/dL Critically high 7.0-18.0 [facility] Comment on above: Performed By: #### B RESEARCH SUPPORT SPECIALIST, CRP, CMP ####[facility] Kuimbvedfv822[address] [place], [place] [address]Dr. Farhat Leal Urea nitrogen/Creatinine [Mass ratio] 24.0 mg/mg Normal [facility] Comment on above: Performed By: #### B RESEARCH SUPPORT SPECIALIST, CRP, CMP ####[facility] Jxcydeujlb4600[address] [place], [place] [address]Dr. Farhat Leal PROTIMEon 11-26-2021 INR Coag (PPP) [Relative time] 1.31 {INR} Normal [facility] Comment on above: Performed By: #### P T ####[facility] Cukqicurmo[address] [place], [place] [address]DrSkylar Leal INR GUIDELINES SEE BELOW Normal [facility] Comment on above: Result Comment: MALINA RED INR: 2.0 - 3.0 CONDITIONS NOT LISTED BELOW 2.5 - 3.5 FOR PROSTHETIC HEART VALVE REPLACEMENT 2.5 - 3.5 RECURRENT THROMBOSIS Performed By: #### P T ####[facility] Womhnwptnw[address] [place], [place] [address]Dr. Farhat Leal PT Coag (PPP) [Time] 13.9 s Critically high 9.0-11.6 [facility] Comment on above: Performed By: #### P T ####[facility] Mmijlwqjwe[address] [place], [place] [address]DrSkylar Leal SED RATE WESTERGRENon 2021 SED RATE 87 mm/hr Critically high <=20 [facility] Comment on above: Performed By: #### S EDR ####[facility] Aqollueegm99[address] [place], [place] [address]Dr. Farhat Leal BNPon 11-25-2021 Natriuretic peptide B (Bld) [Mass/Vol] 69258.0 pg/mL Critically high <=1,800.0 [facility] Comment on above: Performed By: #### C MP, BNP, CRP ####[facility] Uytlkdcpnf[address] [place], [place] [address]Dr. Madelynlorri Leal CBC AUTO DIFFon 11-25-2021 BASO # 0.0 103/ul Normal 0.0-0.1 [facility] Comment on above: Performed By: #### C BC ####[facility] Ihcrcreapi42[address] [place], [place] [address]Dr. Farhat Leal Basophils/100 WBC (Bld) 0.4 % Normal 0.2-2.0 [facility] Comment on above: Performed By: #### C BC ####[facility] Bijtywhrwq[address] [place], [place] [address]Dr. Farhat Leal EO # 0.1 103/ul Normal 0.0-0.7 [facility] Comment on above: Performed By: #### C BC ####[facility] Ygjkhoqmbf[address] [place], [place] [address]Dr. Farhat Leal Eosinophils/100 WBC (Bld) 1.2 % Normal 0.9-7.0 [facility] Comment on above: Performed By: #### C BC ####[facility] Qzlsmpqkiu49[address] [place], [place] [address]Dr. Farhat Leal Erythrocyte distribution width (RBC) [Ratio] 13.7 % Normal 11.0-15.0 [facility] Comment on above: Performed By: #### C BC ####[facility] Zgnmrlunoy[address] [place], [place] [address]Dr. Farhat Leal Hematocrit (Bld) [Volume fraction] 29.6 % Critically low 42.0-54.0 [facility] Comment on above: Performed By: #### C BC ####[facility] Qvgyqoyuhj260[address] [place] [phone]. Farhat Leal Hemoglobin (Bld) [Mass/Vol] 9.3 g/dL Critically low 14.0-18.0 [facility] Comment on above: Performed By: #### C BC ####[facility] Cnvetabfra19[address] [place] [phone]. Farhat Leal IG # 0.15 10e3/ul Critically high 0.00-0.03 [facility] Comment on above: Performed By: #### C BC ####[facility] Jgvgtutymy56[address] [place] [phone]. Farhat Leal IG % 1.4 % Critically high 0.0-0.[address] [facility] Comment on above: Performed By: #### C BC ####[facility] Wrjmvdqmqx49[address] [place] [address]Dr. Farhat Leal LYMPH # 0.8 103/ul Critically low 1.2-3.[address] [facility] Comment on above: Performed By: #### C BC ####[facility] Xzioooxcte77[address] [place] [phone]. Farhat Leal Lymphocytes/100 WBC (Bld) 7.3 % Critically low 20.5-60.0 [facility] Comment on above: Performed By: #### C BC ####[facility] Btbjlqkdlq12[address] [place] [phone]. Farhat Leal MANUAL DIFF REQ NO Normal [facility] Comment on above: Performed By: #### C BC ####[facility] Zhjiapetyb0622 [place] [phone]. Farhat Leal MCH (RBC) [Entitic mass] 29.3 pg Normal 25.9-34.0 [facility] Comment on above: Performed By: #### C BC ####[facility] Bhuqpktfnu69[address] [place] [phone]. Farhat Leal MCHC (RBC) [Mass/Vol] 31.4 g/dL Normal 29.9-35.2 [facility] Comment on above: Performed By: #### C BC ####[facility] Ihuwhxhdxw70[address] [place] [phone]. Farhat Leal MCV (RBC) [Entitic vol] 93.4 fL Normal 80.0-94.0 [facility] Comment on above: Performed By: #### C BC ####[facility] Wsqaqmzohn8[address] [place] [phone] Farhat Leal MONO # 1.3 103/ul Critically high 0.3-0.8 [facility] Comment on above: Performed By: #### C BC ####[facility] Csjuanknqi12[address] [place] [phone]. Farhat Leal Monocytes/100 WBC (Bld) 12.3 % Critically high 1.7-12.0 [facility] Comment on above: Performed By: #### C BC ####[facility] Wvivccptel[address] [place], [place] [address]Dr. Farhat Leal NEUT # 8.4 103/ul Critically high 1.4-6.5 [facility] Comment on above: Performed By: #### C BC ####[facility] Fbhlhbntov1299 [place] [phone]. Farhat Leal Neutrophils/100 WBC (Bld) 77.4 % Critically high 43.0-75.0 [facility] Comment on above: Performed By: #### C BC ####[facility] Wuxmwrruiv1446 [place] [phone]. Farhat Elvis Platelet mean volume (Bld) [Entitic vol] 9.8 fL Normal 9.5-13.5 [facility] Comment on above: Performed By: #### C BC ####[facility] Bhybyedeqg1893 [place] [phone]. Farhat Elvis PLT 390 103/ul Normal 150-450 [facility] Comment on above: Performed By: #### C BC ####[facility] Mcrbhdtyjh0439 [place] [phone]. Farhat Leal RBC 3.17 106/ul Critically low 4.70-6.10 [facility] Comment on above: Performed By: #### C BC ####[facility] Ihbwvycvyn6398 [place] [address]Dr. Farhat Leal WBC 10.9 103/ul Normal 4.0-11.0 [facility] Comment on above: Performed By: #### C BC ####[facility] Vexkmlmilf7605 [place] [address]Dr. Farhat Leal CRPon 11-25-2021 CRP 27.2 mg/dL Critically high <=1.[address] [facility] Comment on above: Performed By: #### C MP, BNP, CRP ####[facility] Lexklbxclq99[address] [place] [address]Dr. Farhat Leal PROF 14(COMP METB)on 022 Albumin [Mass/Vol] 1.5 g/dL Critically low 3.4-5.[address] [facility] Comment on above: Performed By: #### C MP, BNP, CRP ####[facility] Mftddlzvtb0008 [place] [address]Dr. Farhat Leal Albumin/Globulin [Mass ratio] 0.4 {ratio} Normal [facility] Comment on above: Performed By: #### C MP, BNP, CRP ####[facility] Pukdtmqfxh1406 [place] [address]Dr. Farhat Leal ALP [Catalytic activity/Vol] 86 U/L Normal 46-116 [facility] Comment on above: Performed By: #### C MP, BNP, CRP ####[facility] Obfpuzbcta1481 [place] [address]Dr. Farhat Leal ALT [Catalytic activity/Vol] 34 U/L Normal 16-63 [facility] Comment on above: Performed By: #### C MP, BNP, CRP ####[facility] Oknwxxxzxx9031 [place] [address]Dr. Farhat Leal Anion gap [Moles/Vol] 17.8 mmol/L Normal [facility] Comment on above: Performed By: #### C MP, BNP, CRP ####[facility] [address]ctsdolkjw[address] [place], [place] [address]Dr. Farhat Leal AST [Catalytic activity/Vol] 48 U/L Critically high 15-37 [facility] Comment on above: Performed By: #### C MP, BNP, CRP ####[facility] Iamcrgqszo6203 [place] [address]Dr. Farhat Leal Bilirubin [Mass/Vol] 0.8 mg/dL Normal 0.2-1.0 [facility] Comment on above: Performed By: #### C MP, BNP, CRP ####[facility] Chbujcumfe[address] [place], [place] [address]Dr. Faraht Leal Calcium [Mass/Vol] 8.3 mg/dL Critically low 8.5-10.1 Th [facility] Comment on above: Performed By: #### C MP, BNP, CRP ####[facility] Zsuyybzeif[address] [place], [place] [address]Dr. Farhat Leal Chloride [Moles/Vol] 97 mmol/L Critically low 98-107 [facility] Comment on above: Performed By: #### C MP, BNP, CRP ####[facility] Ucobdjjqbp[address] [place], [place] [address]Dr. Farhat Leal CO2 [Moles/Vol] 23.0 mmol/L Normal 21.0-32.0 [facility] Comment on above: Performed By: #### C MP, BNP, CRP ####[facility] Zuazmslxuy[address] [place], [place] [address]Dr. Farhat Leal Creatinine [Mass/Vol] 1.68 mg/dL Critically high 0.70-1.30 [facility] Comment on above: Performed By: #### C MP, BNP, CRP ####[facility] [address]swmazyxqw[address] [place], [place] [address]Dr. Farhat Leal EGFR-AF KYRGYZ 48 mL/min/1.73m2 Critically low >=60 [facility] Comment on above: Performed By: #### C MP, BNP, CRP ####[facility] Eywtjctdij[address] [place], [place] [address]Dr. Farhat Leal EGFR-NON AF KYRGYZ 40 mL/min/1.73m2 Critically low >=60 [facility] Comment on above: Performed By: #### C MP, BNP, CRP ####[facility] Nvrxphpnpy[address] [place] [address]Dr. Farhat Leal Globulin (S) [Mass/Vol] 3.9 g/dL Normal [facility] Comment on above: Performed By: #### C MP, BNP, CRP ####[facility] Ijkqjcvjjk2883 [place] [address]Dr. Farhat Leal Glucose [Mass/Vol] 282 mg/dL Critically high 74-106 T [facility] Comment on above: Performed By: #### C MP, BNP, CRP ####[facility] Eubkqpoazh[address] [place], [place] [address]Dr. Farhat Leal Potassium [Moles/Vol] 4.8 mmol/L Normal 3.5-5.1 [facility] Comment on above: Performed By: #### C MP, BNP, CRP ####[facility] Xlecgrosmc[address] [place], [place] [address]Dr. Farhat Leal Protein [Mass/Vol] 5.4 g/dL Critically low 6.4-8.2 Th [facility] Comment on above: Performed By: #### C MP, BNP, CRP ####[facility] Jlklipfrjh[address] [place], [place] [address]Dr. Farhat Leal Sodium [Moles/Vol] 133 mmol/L Critically low 136-145 Th [facility] Comment on above: Performed By: #### C MP, BNP, CRP ####[facility] Hzzwwrwciz[address] [place], [place] [address]Dr. Farhat Leal Urea nitrogen [Mass/Vol] 40.0 mg/dL Critically high 7.0-18.0 [facility] Comment on above: Performed By: #### C MP, BNP, CRP ####[facility] Ljwlwvkirz[address] [place], [place] [address]Dr. Farhat Leal Urea nitrogen/Creatinine [Mass ratio] 23.8 mg/mg Normal [facility] Comment on above: Performed By: #### C MP, BNP, CRP ####[facility] Egdbexbazq358[address] [place], [place] [address]Dr. Farhat Leal PROTIMEon 11-25-2021 INR Coag (PPP) [Relative time] 1.48 {INR} Normal [facility] Comment on above: Performed By: #### P T ####[facility] Zdudkldbim[address] [place] [address]Dr. Madelynlorri Leal INR GUIDELINES SEE BELOW Normal [facility] Comment on above: Result Comment: MALINA RED INR: 2.0 - 3.0 CONDITIONS NOT LISTED BELOW 2.5 - 3.5 FOR PROSTHETIC HEART VALVE REPLACEMENT 2.5 - 3.5 RECURRENT THROMBOSIS Performed By: #### P T ####[facility] Ukjkiovhuh[address] [place], [place] [address]Dr. Farhat Leal PT Coag (PPP) [Time] 15.6 s Critically high 9.0-11.6 [facility] Comment on above: Performed By: #### P T ####[facility] Vospzplgix[address] [place], [place] [address]Dr. Farhat Leal SED RATE WESTERGRENon 2021 SED RATE 76 mm/hr Critically high <=20 The [facility] Comment on above: Performed By: #### S EDR ####[facility] Lkqbjtcozs[address] [place], [place] [address]Dr. Farhat Leal BNPon 11-24-2021 Natriuretic peptide B (Bld) [Mass/Vol] 01443.0 pg/mL Critically high <=1,800.0 [facility] Comment on above: Performed By: #### B RESEARCH SUPPORT SPECIALIST, CMP, CRP ####[facility] Iayzazsxjw[address] [place], [place] [address]Dr. Farhat Leal CBC AUTO DIFFon 11-24-2021 BASO # 0.0 103/ul Normal 0.0-0.1 [facility] Comment on above: Performed By: #### C BC ####[facility] Otpzgkagfy[address] [place], [place] [address]Dr. Farhat Leal Basophils/100 WBC (Bld) 0.3 % Normal 0.2-2.0 [facility] Comment on above: Performed By: #### C BC ####[facility] Yvbeiujnuz8[address] [place] [phone]. aFrhat Leal EO # 0.2 103/ul Normal 0.0-0.7 [facility] Comment on above: Performed By: #### C BC ####[facility] Llbzpqybvc1557 [place] [phone]. Farhat Leal Eosinophils/100 WBC (Bld) 1.2 % Normal 0.9-7.0 [facility] Comment on above: Performed By: #### C BC ####[facility] Cchcnrtsok45[address] [place] [phone]. Farhat Leal Erythrocyte distribution width (RBC) [Ratio] 13.5 % Normal 11.0-15.0 [facility] Comment on above: Performed By: #### C BC ####[facility] Qaztrkxqjo8390 [place] [address]Dr. Farhat Leal Hematocrit (Bld) [Volume fraction] 31.1 % Critically low 42.0-54.0 [facility] Comment on above: Performed By: #### C BC ####[facility] Amvhxjildz7001 [place] [address]Dr. Farhat Leal Hemoglobin (Bld) [Mass/Vol] 10.0 g/dL Critically low 14.0-18.0 [facility] Comment on above: Performed By: #### C BC ####[facility] Auxencdwtj[address] [place] [phone]. Farhat Leal IG # 0.13 10e3/ul Critically high 0.00-0.03 The [facility] Comment on above: Performed By: #### C BC ####[facility] Wtdefyxcoi7854 [place] [phone]. Farhat Leal IG % 1.0 % Critically high 0.0-0.5 [facility] Comment on above: Performed By: #### C BC ####[facility] Cutdhlokqk0368 [place] [phone]. Farhat Leal LYMPH # 0.7 103/ul Critically low 1.2-3.[address] [facility] Comment on above: Performed By: #### C BC ####[facility] Ymyfdgwgba1616 [place] [phone]. Farhat Elvis Lymphocytes/100 WBC (Bld) 4.9 % Critically low 20.5-60.0 [facility] Comment on above: Performed By: #### C BC ####[facility] Hzwjecmkcs8635 [place] [phone]. Farhat Leal MANUAL DIFF REQ NO Normal [facility] Comment on above: Performed By: #### C BC ####[facility] Pwsqwouseo[address] [place], [place] [phone]. Madelynlorri Leal MCH (RBC) [Entitic mass] 29.6 pg Normal 25.9-34.0 [facility] Comment on above: Performed By: #### C BC ####[facility] Cgwzviqtov[address] [place], [place] [address]Dr. Farhat Leal MCHC (RBC) [Mass/Vol] 32.2 g/dL Normal 29.9-35.2 [facility] Comment on above: Performed By: #### C BC ####[facility] Akhfadevtd[address] [place], [place] [address]Dr. Madelynlorri Leal MCV (RBC) [Entitic vol] 92.0 fL Normal 80.0-94.0 [facility] Comment on above: Performed By: #### C BC ####[facility] Hbzwlxnldx2[address] [place], [place] [address]Dr. Farhat Leal MONO # 1.3 103/ul Critically high 0.3-0.8 [facility] Comment on above: Performed By: #### C BC ####[facility] Zercomnfpf[address] [place], [place] [address]Dr. Farhat Leal Monocytes/100 WBC (Bld) 9.6 % Normal 1.7-12.0 [facility] Comment on above: Performed By: #### C BC ####[facility] Drvsalcoma7[address] [place], [place] [phone]. Farhat Leal NEUT # 11.2 103/ul Critically high 1.4-6.5 The [facility] Comment on above: Performed By: #### C BC ####[facility] Irwnqicvwi2343 [place], [place] [address]Tb. Farhat Leal Neutrophils/100 WBC (Bld) 83.0 % Critically high 43.0-75.0 [facility] Comment on above: Performed By: #### C BC ####[facility] Hvvhbcpyfm1872 [place] [phone]. Farhat Leal Platelet mean volume (Bld) [Entitic vol] 9.5 fL Normal 9.5-13.5 [facility] Comment on above: Performed By: #### C BC ####[facility] Xzkasdpkoi8241 [place] [phone]. Farhat Leal PLT 395 103/ul Normal 150-450 [facility] Comment on above: Performed By: #### C BC ####[facility] Pdilkosygr0458 [place] [phone]. Farhat Leal RBC 3.38 106/ul Critically low 4.70-6.10 [facility] Comment on above: Performed By: #### C BC ####[facility] Trjhjkccaw8872 [place] [phone]. Farhat Leal WBC 13.4 103/ul Critically high 4.0-11.0 [facility] Comment on above: Performed By: #### C BC ####[facility] Ogzuettsbo8977 [place] [phone]. Farhat Leal CRPon 11-24-2021 CRP 27.8 mg/dL Critically high <=1.0 [facility] Comment on above: Performed By: #### B RESEARCH SUPPORT SPECIALIST, CMP, CRP ####[facility] Gxqdvyfktn6991 [place] [phone]. Farhat Leal CULTURE ANAEROBICon 11-25-19 22 CULTURE ANAEROBIC Culture Observations : NO GROWTH OF ANAEROBES AT 72 HOURS. [facility] Comment on above: Performed By: #### A NACX ####[facility] Doiuyximwd5133 [place] [phone]. Farhat Leal CULTURE ANAEROBIC Culture Observations : NO GROWTH OF ANAEROBES AT 72 HOURS. Normal [facility] Comment on above: Performed By: #### A NACX ####[facility] Kitazyrlpq[address] [place], [place] [address]Dr. Madelynlan Leal CULTURE ANAEROBIC Culture Observations : No growth of anaerobes at 72 hours. Normal [facility] Comment on above: Performed By: #### A NACX ####[facility] Aeaeeutggv6[address] [place], [place] [address]Dr. Yilan Leal CULTURE ANAEROBIC Culture Observations : No growth of anaerobes at 72 hours. Normal [facility] Comment on above: Performed By: #### A NACX ####[facility] Fzwfggwuwn[address] [place], [place] [address]Dr. Madelynlorri Leal CULTURE URINEon 11-24-2021 CULTURE URINE Culture Observations : NO GROWTH. Normal [facility] Comment on above: Performed By: #### U RCX ####[facility] Nyxbffoupr[address] [place], [place] [address]Dr. Fahrat Leal ECHOCARDIO M/2D COMPLETEon 1 ECHOCARDIO M/2D COMPLETE Normal [facility] ER URINE PROFILEon Bilirubin Ql (U) Negative Normal NEGATIVE [facility] Comment on above: Performed By: #### E RUR ####[facility] Ustqokprpr4[address] [place], [place] [address]Dr. Farhat Leal Clarity (U) CLEAR Normal CLEAR [facility] Comment on above: Performed By: #### E RUR ####[facility] Dzngmxfdro[address] [place], [place] [address]Dr. Farhat Leal Color (U) YELLOW Normal YELLOW [facility] Comment on above: Performed By: #### E RUR ####[facility] Ifonzfamjy[address] [place], [place] [address]Dr. Farhat Leal ERUAHD A micrscopic examination will be performed if indicated. [facility] Comment on above: Performed By: #### E RUR ####[facility] Nimtftajnc4[address] [place], [place] [address]Dr. Farhat Leal Glucose Ql (U) Negative Normal NEGATIVE [facility] Comment on above: Performed By: #### E RUR ####[facility] Hquxtczwsy3827[address] [place], [place] [address]Dr. Farhat Leal Hemoglobin Ql (U) Negative Normal NEGATIVE [facility] Comment on above: Performed By: #### E RUR ####[facility] Ljmarpbfnp90[address] [place], [place] [address]Dr. Farhat Leal Ketones Ql (U) TRACE Abnormal NEGATIVE [facility] Comment on above: Performed By: #### E RUR ####[facility] Vcwyksvnpg[address] [place], [place] [address]Dr. Farhat Elvis LEUKOCYTES Negative Normal NEGATIVE [facility] Comment on above: Performed By: #### E RUR ####[facility] Jjpvduftlh44[address] [place], [place] [address]Dr. Farhat Leal Nitrite Ql (U) Negative Normal NEGATIVE [facility] Comment on above: Performed By: #### E RUR ####[facility] Fyhvskwefn[address] [place], [place] [address]Dr. Farhat Leal pH (U) 5.5 [pH] Normal 5-9 [facility] Comment on above: Performed By: #### E RUR ####[facility] Edmatwkopr[address] [place], [place] [address]Dr. Madelynlorri Elvis SPEC GRAVITY 1.015 Normal 1.005-<=1.02 5 [facility] Comment on above: Performed By: #### E RUR ####[facility] Tjpxsyyjcs[address] [place], [place] [address]Dr. Farhat Leal UA PROTEIN Negative Normal NEGATIVE/ TRACE [facility] Comment on above: Performed By: #### E RUR ####[facility] Lxiadygkih737[address] [place], [place] [address]Dr. Farhat Leal UR MICRO IND NOT INDICATED Normal [facility] Comment on above: Performed By: #### E RUR ####[facility] Ikcvjqxyja6665[address] [place], [place] [address]Dr. Farhat Leal Urobilinogen Qn (U) 0.2 {Boyd'U}/dL Normal 0.2 - 1. 0 [facility] Comment on above: Performed By: #### E RUR ####[facility] Ecaejfldpm66[address] [place] [address]Dr. Farhat Leal GRAM STAINon 11-24-2021 DIPHTHEROIDS Normal [facility] Comment on above: Performed By: #### G STAIN ####[facility] Nesvfymdsc8842 [place] [address]Dr. Farhat Leal EPITHELIALS Normal [facility] Comment on above: Performed By: #### G STAIN ####[facility] Flzbbozzsl0705 [place] [address]Dr. Farhat Leal FUNGAL ELEMENTS Normal [facility] Comment on above: Performed By: #### G STAIN ####[facility] Cerahaqinc40[address] [place], [place] [address]Dr. Frahat Leal GRAM NEG BACILLI Normal [facility] Comment on above: Performed By: #### G STAIN ####[facility] Zxkgubnrti[address] [place], [place] [address]Dr. Farhat Leal GRAM NEG DIPPLOCOCCI Normal [facility] Comment on above: Performed By: #### G STAIN ####[facility] Qrozvqeevb[address] [place], [place] [address]Dr. Farhat Leal GRAM POS BACILLI Normal [facility] Comment on above: Performed By: #### G STAIN ####[facility] Ajznttxnxp[address]25[address] [place], [place] [address]Dr. Farhat Leal GRAM POSITIVE COCCI FEW Normal [facility] Comment on above: Performed By: #### G STAIN ####[facility] Lrhlrfpklf6118 [place] [address]Dr. Farhat Leal GRAM STAIN SOURCE RT ACHILLES TENDON Normal [facility] Comment on above: Performed By: #### G STAIN ####[facility] Jqojteyxhg72[address] [place], [place] [address]Dr. Farhat Leal GS_DIPTH Normal [facility] Comment on above: Performed By: #### G STAIN ####[facility] Qwfwwofbbc46[address] [place], [place] [address]Dr. Farhat Leal WBC RARE Normal [facility] Comment on above: Performed By: #### G STAIN ####[facility] Fqxfhffdyr3035 [place] [phone]. Farhat Leal COMMENTS NO ORGANISMS OBSERVED Normal [facility] Comment on above: Performed By: #### G STAIN ####[facility] Ewparuspqs5603 [place] [phone]. Farhat Leal DIPHTHEROIDS Normal [facility] Comment on above: Performed By: #### G STAIN ####[facility] Sldkppkpfp8403 [place] [address]Dr. Farhat Leal EPITHELIALS Normal [facility] Comment on above: Performed By: #### G STAIN ####[facility] Kdfxnpipgf[address] [place], [place] [address]Dr. Fahrat Leal FUNGAL ELEMENTS Normal [facility] Comment on above: Performed By: #### G STAIN ####[facility] Ptfxizunhy[address] [place], [place] [address]Dr. Farhat Leal GRAM NEG BACILLI Normal [facility] Comment on above: Performed By: #### G STAIN ####[facility] Fdoacqickx67[address] [place], [place] [address]Dr. Farhat Leal GRAM NEG DIPPLOCOCCI Normal [facility] Comment on above: Performed By: #### G STAIN ####[facility] Nbggniacgx60[address] [place], [place] [address]Dr. Farhat Leal GRAM POS BACILLI Normal [facility] Comment on above: Performed By: #### G STAIN ####[facility] Cddcapzymt1741 [place] [address]Dr. Farhat Leal GRAM POSITIVE COCCI Normal [facility] Comment on above: Performed By: #### G STAIN ####[facility] Siucxwsmmz4582 [place] [address]Dr. Farhat Leal GRAM STAIN SOURCE RT CALCANEOUS Normal [facility] Comment on above: Performed By: #### G STAIN ####[facility] Wekgapeamm1784 [place] [address]Dr. Farhat Leal GS_DIPTH Normal [facility] Comment on above: Performed By: #### G STAIN ####[facility] Exuqogqpel3737 [place] [phone]. Farhat Leal WBC RARE Normal [facility] Comment on above: Performed By: #### G STAIN ####[facility] Hougdhrasz3568 [place] [address]Dr. Farhat Leal DIPHTHEROIDS Normal [facility] Comment on above: Performed By: #### G STAIN ####[facility] Legbyqprmz7179 [place] [address]Dr. Farhat Leal EPITHELIALS Normal [facility] Comment on above: Performed By: #### G STAIN ####[facility] Tcllmfjvno7009 [place] [address]Dr. Farhat Leal FUNGAL ELEMENTS Normal [facility] Comment on above: Performed By: #### G STAIN ####[facility] Rmmvbtqirq0557 [place] [address]Dr. Farhat Leal GRAM NEG BACILLI FEW Normal [facility] Comment on above: Performed By: #### G STAIN ####[facility] Tnhfwsszsd0333 [place] [address]Dr. Farhat Leal GRAM NEG DIPPLOCOCCI Normal [facility] Comment on above: Performed By: #### G STAIN ####[facility] Cbciqyvpou[address] [place], [place] [address]Dr. Farhat Leal GRAM POS BACILLI Normal [facility] Comment on above: Performed By: #### G STAIN ####[facility] Gvnjsrlieo2110 [place] [address]Dr. Farhat Leal GRAM POSITIVE COCCI FEW Normal [facility] Comment on above: Performed By: #### G STAIN ####[facility] Oljzjimjno4107 [place] [address]Dr. Farhat Leal GRAM STAIN SOURCE #2 Rt foot abscess Normal [facility] Comment on above: Performed By: #### G STAIN ####[facility] Csokrvvrwz2866 [place] [address]Dr. Farhat Leal GS_DIPTH Normal [facility] Comment on above: Performed By: #### G STAIN ####[facility] Tnmgaouaox[address] [place], [place] [address]Dr. Farhat Leal WBC RARE Normal [facility] Comment on above: Performed By: #### G STAIN ####[facility] Apiweopkey9478 [place] [address]Dr. Farhat Leal DIPHTHEROIDS Normal [facility] Comment on above: Performed By: #### G STAIN ####[facility] Gvlebrmywl4333 [place] [address]Dr. Farhat Leal EPITHELIALS Normal [facility] Comment on above: Performed By: #### G STAIN ####[facility] Rfescxgdbr4218 [place] [address]Dr. Farhat Leal FUNGAL ELEMENTS Normal [facility] Comment on above: Performed By: #### G STAIN ####[facility] Vfeszmztui50[address] [place], [place] [address]Dr. Farhat Leal GRAM NEG BACILLI FEW Normal [facility] Comment on above: Performed By: #### G STAIN ####[facility] Molkstaobx[address] [place], [place] [address]Dr. Farhat Leal GRAM NEG DIPPLOCOCCI Normal [facility] Comment on above: Performed By: #### G STAIN ####[facility] Dcjaljrmuh8[address] [place], [place] [address]Dr. Farhat Leal GRAM POS BACILLI Normal [facility] Comment on above: Performed By: #### G STAIN ####[facility] Zvxyiakikt7782 [place] [address]Dr. Farhat Leal GRAM POSITIVE COCCI FEW Normal [facility] Comment on above: Performed By: #### G STAIN ####[facility] Wnlrfaaesg149[address] [place], [place] [address]Dr. Farhat Leal GRAM STAIN SOURCE #1 Rt foot abscess Normal [facility] Comment on above: Performed By: #### G STAIN ####[facility] Jsyvivcmsm[address] [place], [place] [address]Dr. Farhat Leal GS_DIPTH Normal [facility] Comment on above: Performed By: #### G STAIN ####[facility] Kmoolxxbnj413[address] [place], [place] [address]Dr. Farhat Leal WBC NONE SEEN Normal [facility] Comment on above: Performed By: #### G STAIN ####[facility] Qykkngcedf7011 [place] [address]Dr. Farhat Leal POINT OF CARE GLUCOSEon 11-15 0 Glucose [Mass/Vol] 331 mg/dL Critically high 74-106 [facility] Comment on above: Performed By: #### P OCGLUC ####[facility] Tqfqzsdsnv3155 [place] [address]Dr. Farhat Leal Glucose [Mass/Vol] 236 mg/dL Critically high 74-106 [facility] Comment on above: Performed By: #### P OCGLUC ####[facility] Uuxslsddie9610 [place] [address]Dr. Fahrat Leal PROF 14(COMP METB)on 022 Albumin [Mass/Vol] 1.6 g/dL Critically low 3.4-5.[address] [facility] Comment on above: Performed By: #### B RESEARCH SUPPORT SPECIALIST, CMP, CRP ####[facility] Omrihwyvff6274 [place] [address]Dr. Farhat Leal Albumin/Globulin [Mass ratio] 0.4 {ratio} Normal [facility] Comment on above: Performed By: #### B RESEARCH SUPPORT SPECIALIST, CMP, CRP ####[facility] Ycnwxflums0692 [place] [address]Dr. Farhat Leal ALP [Catalytic activity/Vol] 94 U/L Normal 46-116 [facility] Comment on above: Performed By: #### B RESEARCH SUPPORT SPECIALIST, CMP, CRP ####[facility] Wpjkmfyppc6191 [place] [address]Dr. Farhat Leal ALT [Catalytic activity/Vol] 49 U/L Normal 16-63 [facility] Comment on above: Performed By: #### B RESEARCH SUPPORT SPECIALIST, CMP, CRP ####[facility] Driuagbdat5610 [place] [address]Dr. Farhat Leal Anion gap [Moles/Vol] 12.5 mmol/L Normal [facility] Comment on above: Performed By: #### B RESEARCH SUPPORT SPECIALIST, CMP, CRP ####[facility] Pxticnvbtz[address] [place], [place] [address]Dr. Farhat Leal AST [Catalytic activity/Vol] 102 U/L Critically high 15-37 [facility] Comment on above: Performed By: #### B RESEARCH SUPPORT SPECIALIST, CMP, CRP ####[facility] Dypomwqffb98[address] [place], [place] [address]Dr. Farhat Leal Bilirubin [Mass/Vol] 0.8 mg/dL Normal 0.2-1.0 [facility] Comment on above: Performed By: #### B RESEARCH SUPPORT SPECIALIST, CMP, CRP ####[facility] Yqpikqsnuv10[address] [place], [place] [address]Dr. Farhat Leal Calcium [Mass/Vol] 8.4 mg/dL Critically low 8.5-10.1 Th e [facility] Comment on above: Performed By: #### B RESEARCH SUPPORT SPECIALIST, CMP, CRP ####[facility] Ckbmqdhhtb10[address] [place], [place] [address]Dr. Farhat Leal Chloride [Moles/Vol] 96 mmol/L Critically low 98-107 [facility] Comment on above: Performed By: #### B RESEARCH SUPPORT SPECIALIST, CMP, CRP ####[facility] Jzzcsaecyp[address] [place], [place] [address]Dr. Farhat Leal CO2 [Moles/Vol] 24.8 mmol/L Normal 21.0-32.0 [facility] Comment on above: Performed By: #### B RESEARCH SUPPORT SPECIALIST, CMP, CRP ####[facility] Sbiofibdci[address] [place], [place] [address]Dr. Farhat Leal Creatinine [Mass/Vol] 1.36 mg/dL Critically high 0.70-1.30 [facility] Comment on above: Performed By: #### B RESEARCH SUPPORT SPECIALIST, CMP, CRP ####[facility] Qfugzhhdsg[address] [place], [place] [address]Dr. Farhat Leal EGFR-AF KYRGYZ >60 Normal >=60 [facility] Comment on above: Performed By: #### B RESEARCH SUPPORT SPECIALIST, CMP, CRP ####[facility] Ijyutsuiyn[address] [place], [place] [address]Dr. Farhat Elvis EGFR-NON AF KYRGYZ 51 mL/min/1.73m2 Critically low >=60 [facility] Comment on above: Performed By: #### B RESEARCH SUPPORT SPECIALIST, CMP, CRP ####[facility] Mpjdoqofkn8285 [place] [address]Dr. Farhat Leal Globulin (S) [Mass/Vol] 4.1 g/dL Normal [facility] Comment on above: Performed By: #### B RESEARCH SUPPORT SPECIALIST, CMP, CRP ####[facility] [address] [place] [address]Dr. Farhat Leal Glucose [Mass/Vol] 204 mg/dL Critically high 74-106 T [facility] Comment on above: Performed By: #### B RESEARCH SUPPORT SPECIALIST, CMP, CRP ####[facility] Wcinlmplwb[address] [place], [place] [address]Dr. Farhat Leal Potassium [Moles/Vol] 4.3 mmol/L Normal 3.5-5.1 [facility] Comment on above: Performed By: #### B RESEARCH SUPPORT SPECIALIST, CMP, CRP ####[facility] Ndhkjuchqe[address] [place], [place] [address]Dr. Farhat Leal Protein [Mass/Vol] 5.7 g/dL Critically low 6.4-8.2 Th [facility] Comment on above: Performed By: #### B RESEARCH SUPPORT SPECIALIST, CMP, CRP ####[facility] Ohlwbxvovp[address] [place], [place] [address]Dr. Farhat Leal Sodium [Moles/Vol] 129 mmol/L Critically low 136-145 Th [facility] Comment on above: Performed By: #### B RESEARCH SUPPORT SPECIALIST, CMP, CRP ####[facility] Cflfwgpxmr347[address] [place], [place] [address]Dr. Farhat Leal Urea nitrogen [Mass/Vol] 41.0 mg/dL Critically high 7.0-18.0 [facility] Comment on above: Performed By: #### B RESEARCH SUPPORT SPECIALIST, CMP, CRP ####[facility] Drlqayyscf1970[address] [place], [place] [address]Dr. Farhat Leal Urea nitrogen/Creatinine [Mass ratio] 30.1 mg/mg Normal [facility] Comment on above: Performed By: #### B RESEARCH SUPPORT SPECIALIST, CMP, CRP ####[facility] Djxvqswmaz256[address] [place], [place] [address]Dr. Farhat Leal PROTIMEon 11-24-2021 INR Coag (PPP) [Relative time] 2.20 {INR} Normal [facility] Comment on above: Performed By: #### P T ####[facility] [address] [place] [address]Dr. Farhat Leal INR GUIDELINES SEE BELOW Normal The [facility] Comment on above: Result Comment: MALINA RED INR: 2.0 - 3.0 CONDITIONS NOT LISTED BELOW 2.5 - 3.5 FOR PROSTHETIC HEART VALVE REPLACEMENT 2.5 - 3.5 RECURRENT THROMBOSIS Performed By: #### P T ####[facility] Zsxmclspnv317[address] [place], [place] [address]Dr. Farhat Leal PT Coag (PPP) [Time] 22.6 s Critically high 9.0-11.6 [facility] Comment on above: Performed By: #### P T ####[facility] Yrngbgzdio5[address] [place], [place] [address]Dr. Farhat Lela SED RATE CLEVELANDERGREN 2021 SED RATE 80 mm/hr Critically high <=20 The [facility] Comment on above: Performed By: #### S EDR ####[facility] Jzpzfrcsha332[address] [place], [place] [address]Dr. Farhat Leal BLOOD CULTURE ID PANELon A. baumannii Not detected Normal NOT DETECTED The [facility] Comment on above: Performed By: #### B CID2 ####[facility] Jerptublge[address] [place], [place] [address]Dr. Farhat Leal Bacteriodes fragilis Not detected Normal NOT DETECTED [facility] Comment on above: Performed By: #### B CID2 ####[facility] Ghblwjcpqs8[address] [place], [place] [address]Dr. Farhat Leal BCID CONTROLS PASSED Normal The [facility] Comment on above: Performed By: #### B CID2 ####[facility] Nudzcrzewi07[address] [place], [place] [address]Dr. Farhat Leal BCIDBTHD BLOOD CULTURE BOTTLE INFORMATION Normal [facility] Comment on above: Performed By: #### B CID2 ####[facility] [address] [place] [id number]. Yilorri Leal BCIDHD1 ANTIMICROBIAL RESISTANCE GENES Normal [facility] Comment on above: Performed By: #### B CID2 ####[facility] [address] [place] [address]Dr. Yilan Leal BCIDHD2 SEE BELOW Normal [facility] Comment on above: Result Comment: Note : Antimicrobial resitance can occur via multiple mechanisms. A Not Detected result for the [employer] antomicrobial resistance gene assays does not indicate antimicrobial susceptibility. Subculturing is required for species identification and susceptibility testing of isolates. Performed By: #### B CID2 ####[facility] Wukdkzpffj[address] [place], [place] [address]Dr. Yilorri Leal BCIDHD3 Positive Normal [facility] Comment on above: Performed By: #### B CID2 ####[facility] Ftefdozaka[address] [place], [place] [address]Dr. Yilorri Leal BCIDHD4 Negative Normal [facility] Comment on above: Performed By: #### B CID2 ####[facility] Nhrsczgxyt[address] [place], [place] [address]Dr. Yilorri Leal BCIDHD5 YEAST Normal [facility] Comment on above: Performed By: #### B CID2 ####[facility] Zhkjhprohy[address] [place], [place] [address]Dr. Yilan Leal Bottle Set: Set 1 Normal [facility] Comment on above: Performed By: #### B CID2 ####[facility] Zfrgjunpsq213[address] [place], [place] [address]Dr. Yilan Leal Bottle: Aerobic Normal [facility] Comment on above: Performed By: #### B CID2 ####[facility] Vjapjllads[address] [place], [place] [address]Dr. Yilan Leal C. neoformans/gattii Not detected Normal NOT DETECTED [facility] Comment on above: Performed By: #### B CID2 ####[facility] Dgbsyadpah092[address] [place], [place] [address]Dr. Yilorri Leal Disha albicans Not detected Normal NOT DETECTED [facility] Comment on above: Performed By: #### B CID2 ####[facility] [address]iz[address] [place] [address]Dr. Yilan Leal Disha auris Not detected Normal NOT DETECTED The [facility] Comment on above: Performed By: #### B CID2 ####[facility] [address] [place] [address]Dr. Yilan Leal Disha glabrata Not detected Normal NOT DETECTED [facility] Comment on above: Performed By: #### B CID2 ####[facility] Pcyuhneawz[address] [place], [place] [address]Dr. Yilorri Leal Disha Krusei Not detected Normal NOT DETECTED [facility] Comment on above: Performed By: #### B CID2 ####[facility] Daztsqrmgz[address] [place], [place] [address]Dr. Yilorri Leal Disha Parapsilosis Not detected Normal NOT DETECTED [facility] Comment on above: Performed By: #### B CID2 ####[facility] Dgojewwzav[address] [place], [place] [address]Dr. Yilorri Leal Disha Tropicalis Not detected Normal NOT DETECTED [facility] Comment on above: Performed By: #### B CID2 ####[facility] Uhxthkccej264[address] [place], [place] [address]Dr. Farhat Leal CTX-M Resistant Gene Not Applicable Normal NOT DETECTE D [facility] Comment on above: Performed By: #### B CID2 ####[facility] Wdqlwomfaa62[address] [place], [place] [address]Dr. Yilorri Leal E. Cloacae complex Not detected Normal NOT DETECTED [facility] Comment on above: Performed By: #### B CID2 ####[facility] Hsjqfacbqd624[address] [place], [place] [address]Dr. Yilan Leal E. faecalis Not detected Normal NOT DETECTED The [facility] Comment on above: Performed By: #### B CID2 ####[facility] Mqavzhhlrf847[address] [place], [place] [address]Dr. Yilorri Leal E. faecium Not detected Normal NOT DETECTED The [facility] Comment on above: Performed By: #### B CID2 ####[facility] [address] [place] [address]Dr. Farhat Leal Enterobacteriaceae Not detected Normal NOT DETECTED [facility] Comment on above: Performed By: #### B CID2 ####[facility] Yvchqmvczu[address] [place], [place] [address]Dr. Farhat Leal Escherichia coli Not detected Normal NOT DETECTED [facility] Comment on above: Performed By: #### B CID2 ####[facility] Ybcyyewhrr[address] [place], [place] [address]Dr. Farhat Leal H. influenzae Not detected Normal NOT DETECTED [facility] Comment on above: Performed By: #### B CID2 ####[facility] Wtbedtfnrw86[address] [place], [place] [address]Dr. Farhat Leal IMP Resistant Gene Not Applicable Normal NOT DETECTED [facility] Comment on above: Performed By: #### B CID2 ####[facility] Lheodoagig13[address] [place], [place] [address]Dr. Farhat Leal K. oxytoca Not detected Normal NOT DETECTED [facility] Comment on above: Performed By: #### B CID2 ####[facility] Yvoctfsxsv[address] [place], [place] [address]Dr. Madelynlorri Leal K. pneumoniae Not detected Normal NOT DETECTED [facility] Comment on above: Performed By: #### B CID2 ####[facility] Qzqvhjituz020[address] [place], [place] [address]Dr. Farhat Leal Klebsiella aerogenes Not detected Normal NOT DETECTED [facility] Comment on above: Performed By: #### B CID2 ####[facility] Ckigzrlkjr[address] [place], [place] [address]Dr. Farhat Leal KPC Resistant Gene Not Applicable Normal NOT DETECTED [facility] Comment on above: Performed By: #### B CID2 ####[facility] Lndlcufhjc076[address] [place], [place] [address]Dr. Farhat Leal List. monocytogenes Not detected Normal NOT DETECTED [facility] Comment on above: Performed By: #### B CID2 ####[facility] Ecephrhfmm874[address] [place], [place] [address]Dr. Farhat Leal Mcr-1 Resistant Gene Not Applicable Normal NOT DETECTE D [facility] Comment on above: Performed By: #### B CID2 ####[facility] Zmvoewdwvd[address] [place], [place] [address]Dr. Farhat Leal mecA/C Not Applicable Normal NOT DETECTED The [facility] Comment on above: Performed By: #### B CID2 ####[facility] Utuhgusefo[address] [place], [place] [address]Dr. Farhat Leal mecA/C MREJ Detected Abnormal NOT DETECTED [facility] Comment on above: Performed By: #### B CID2 ####[facility] Funynanncu87[address] [place], [place] [address]Dr. Farhat Leal N. meningitidis Not detected Normal NOT DETECTED The [facility] Comment on above: Performed By: #### B CID2 ####[facility] Ydqljblerh113[address] [place], [place] [address]Dr. Farhat Leal NDM Resistant Gene Not Applicable Normal NOT DETECTED [facility] Comment on above: Performed By: #### B CID2 ####[facility] Xxgpimidod[address] [place], [place] [address]Dr. Madelynlorri Elvis Oxa-48-like Not Applicable Normal NOT DETECTED The [facility] Comment on above: Performed By: #### B CID2 ####[facility] Lkvdddfnft[address] [place], [place] [address]Dr. Farhat Leal Proteus Not detected Normal NOT DETECTED [facility] Comment on above: Performed By: #### B CID2 ####[facility] Rcoatczwmj67[address] [place], [place] [address]Dr. Farhat Leal Pseud. aeruginosa Not detected Normal NOT DETECTED [facility] Comment on above: Performed By: #### B CID2 ####[facility] Gwpvqseflj[address] [place], [place] [address]Dr. Farhat Leal S. maltophilia Not detected Normal NOT DETECTED [facility] Comment on above: Performed By: #### B CID2 ####[facility] Qfylbunbli180[address] [place], [place] [address]Dr. Farhat Leal Salmonella Not detected Normal NOT DETECTED [facility] Comment on above: Performed By: #### B CID2 ####[facility] Woraoohdql[address] [place], [place] [address]Dr. Farhat Leal Seratia marcescens Not detected Normal NOT DETECTED [facility] Comment on above: Performed By: #### B CID2 ####[facility] Rjjeijnxam20[address] [place], [place] [address]Dr. Farhat Leal Site: Rt Hand Normal [facility] Comment on above: Performed By: #### B CID2 ####[facility] Osdgzncqso10[address] [place], [place] [address]Dr. Farhat Leal Staph. aureus Detected Abnormal NOT DETECTED The [facility] Comment on above: Performed By: #### B CID2 ####[facility] Ybsjmqcrgk[address] [place], [place] [address]Dr. Farhat Leal Staph. epidermidis Not detected Normal NOT DETECTED [facility] Comment on above: Performed By: #### B CID2 ####[facility] Lccmhkcxns[address] [place], [place] [address]Dr. Farhat Leal Staph. lugdunensis Not detected Normal NOT DETECTED [facility] Comment on above: Performed By: #### B CID2 ####[facility] Hertblhkdn46[address] [place], [place] [address]Dr. Farhat Leal Staphylococcus Detected Abnormal NOT DETECTED The [facility] Comment on above: Performed By: #### B CID2 ####[facility] Lrlyzcfpgy01[address] [place], [place] [address]Dr. Farhat Leal Strep. agalactiae Not detected Normal NOT DETECTED [facility] Comment on above: Performed By: #### B CID2 ####[facility] Pfuymmcahi[address] [place], [place] [address]Dr. Farhat Leal Strep. pneumoniae Not detected Normal NOT DETECTED [facility] Comment on above: Performed By: #### B CID2 ####[facility] Cggatnnfsc[address] [place], [place] [address]Dr. Farhat Leal Strep. pyogenes Not detected Normal NOT DETECTED The [facility] Comment on above: Performed By: #### B CID2 ####[facility] [address] [place] [address]Dr. Farhat Leal Streptococcus Not detected Normal NOT DETECTED [facility] Comment on above: Performed By: #### B CID2 ####[facility] [address] [place] [address]Dr. Farhat Leal Teodoro/B Resist. Gene Not Applicable Normal NOT DETECTED [facility] Comment on above: Performed By: #### B CID2 ####[facility] Iycs[address]ubdsi[address] [place] [address]Dr. Madelynlorri Leal VIM Resistant Gene Not Applicable Normal NOT DETECTED [facility] Comment on above: Performed By: #### B CID2 ####[facility] Fogyfdpvat[address] [place], [place] [address]Dr. Madelynlorri Leal BNPon 11-23-2021 Natriuretic peptide B (Bld) [Mass/Vol] 61592.0 pg/mL Critically high <=1,800.0 [facility] Comment on above: Performed By: #### C MP, CMADM, BNP ####[facility] Yzxrfvnkmo8[address] [place], [place] [address]Dr. Farhat Leal CARDIAC AMANDA ADMITon 022 CK [Catalytic activity/Vol] 41 U/L Normal 39-308 [facility] Comment on above: Performed By: #### C MP, CMADM, BNP ####[facility] Igvnugirrm[address]364[address] [place], [place] [address]Dr. Farhat Elvis CK.MB [Mass/Vol] 0.98 ng/mL Normal <=3.60 [facility] Comment on above: Performed By: #### C MP, CMADM, BNP ####[facility] Lnphtshuxj[address] [place], [place] [address]Dr. Farhat Elvis HSTROP 30.1 pg/mL Normal 4.0-76.1 [facility] Comment on above: Result Comment: CUT- OFF POINTS HAVE BEEN ESTABLISHED BASED ON THE FOURTH UNIVERSAL DEFINITIONS OF MYOCARDIALINFARCTION. THE UPPER REFERENCE LIMIT (URL) OF TROPONIN, DEFINED THE 99TH PERCENTILE OFcTnI DISTRIBUTION IN A REFERENCE POPULATION, HAS BEEN CONFIRMED THE DECISION THRESHOLDFOR OR DIAGNOSIS. Performed By: #### C MP, CMADM, BNP ####[facility] J[address]zolrq[address] [place] [address]Dr. Farhat Leal VALERIA 160 ng/mL Critically high 16-[address] [facility] Comment on above: Performed By: #### C MP, CMADM, BNP ####[facility] Fkwkrukulv[address] [place] [address]Dr. Farhat Leal CBC AUTO DIFFon 11-23-2021 BASO # 0.0 103/ul Normal 0.0-0.1 [facility] Comment on above: Performed By: #### C BC ####[facility] Obdowvjblt20[address] [place], [place] [address]Dr. Farhat Leal Basophils/100 WBC (Bld) 0.2 % Normal 0.2-2.0 [facility] Comment on above: Performed By: #### C BC ####[facility] Qxkcpqvjsu[address] [place], [place] [address]Dr. Farhat Leal EO # 0.0 103/ul Normal 0.0-0.7 [facility] Comment on above: Performed By: #### C BC ####[facility] Dadibyxizt7999[address] [place], [place] [address]Dr. Farhat Leal Eosinophils/100 WBC (Bld) 0.1 % Critically low 0.9-7.0 [facility] Comment on above: Performed By: #### C BC ####[facility] Umwybvykdm[address] [place], [place] [address]Dr. Farhat Leal Erythrocyte distribution width (RBC) [Ratio] 13.4 % Normal 11.0-15.0 [facility] Comment on above: Performed By: #### C BC ####[facility] Rkftnbzjky2450[address] [place], [place] [address]Dr. Farhat Leal Hematocrit (Bld) [Volume fraction] 31.6 % Critically low 42.0-54.0 [facility] Comment on above: Performed By: #### C BC ####[facility] Oskaygwuxc[address] [place], [place] [address]Dr. Farhat Leal Hemoglobin (Bld) [Mass/Vol] 10.4 g/dL Critically low 14.0-18.0 [facility] Comment on above: Performed By: #### C BC ####[facility] [address] [place] [address]DrSkylar Leal IG # 0.11 10e3/ul Critically high 0.00-0.03 [facility] Comment on above: Performed By: #### C BC ####[facility] Dfffmbvvad27[address] [place], [place] [address]DrSkylar Leal IG % 0.7 % Critically high 0.0-0.5 [facility] Comment on above: Performed By: #### C BC ####[facility] Sbcawnxfox42[address] [place], [place] [address]DrSkylar Leal LYMPH # 0.5 103/ul Critically low 1.2-3.[address] [facility] Comment on above: Performed By: #### C BC ####[facility] Vvpobcycpb[address] [place], [place] [address]DrSkylar Leal Lymphocytes/100 WBC (Bld) 2.8 % Critically low 20.5-60.0 [facility] Comment on above: Performed By: #### C BC ####[facility] Kqysnzlwzs[address] [place], [place] [address]DrSkylar Leal MANUAL DIFF REQ NO Normal The [facility] Comment on above: Performed By: #### C BC ####[facility] Ctmlgrlvzg7638[address] [place], [place] [address]DrSkylar Leal MCH (RBC) [Entitic mass] 29.8 pg Normal 25.9-34.0 [facility] Comment on above: Performed By: #### C BC ####[facility] Jhhdgmansw[address] [place], [place] [address]DrSkylar Leal MCHC (RBC) [Mass/Vol] 32.9 g/dL Normal 29.9-35.2 [facility] Comment on above: Performed By: #### C BC ####[facility] Jwgnyposqr[address]23[address] [place], [place] [address]DrSkylar Leal MCV (RBC) [Entitic vol] 90.5 fL Normal 80.0-94.0 [facility] Comment on above: Performed By: #### C BC ####[facility] [address]wodmo[address] [place] [address]DrSkylar Farhat Leal MONO # 1.3 103/ul Critically high 0.3-0.8 [facility] Comment on above: Performed By: #### C BC ####[facility] Xkbvdwojkc24[address] [place] [address]DrSkylar Leal Monocytes/100 WBC (Bld) 8.3 % Normal 1.7-12.0 [facility] Comment on above: Performed By: #### C BC ####[facility] Wftknkqwvm[address] [place], [place] [address]Dr. Madelynlorri Leal NEUT # 13.9 103/ul Critically high 1.4-6.5 [facility] Comment on above: Performed By: #### C BC ####[facility] Xhfxjqcjau[address] [place], [place] [address]Dr. Farhat Leal Neutrophils/100 WBC (Bld) 87.9 % Critically high 43.0-75.0 [facility] Comment on above: Performed By: #### C BC ####[facility] Wenmaraqcm[address] [place], [place] [address]Dr. Farhat Leal Platelet mean volume (Bld) [Entitic vol] 9.3 fL Critically low 9.5-13.5 [facility] Comment on above: Performed By: #### C BC ####[facility] Svadbwcjzt[address] [place], [place] [address]Dr. Farhat Leal PLT 390 103/ul Normal 150-450 [facility] Comment on above: Performed By: #### C BC ####[facility] Euwelgesir[address] [place], [place] [address]DrSkylar Leal RBC 3.49 106/ul Critically low 4.70-6.10 [facility] Comment on above: Performed By: #### C BC ####[facility] Lxknqrfrgm03[address] [place], [place] [address]DrSkylar Leal WBC 15.9 103/ul Critically high 4.0-11.0 [facility] Comment on above: Performed By: #### C BC ####[facility] Srs[address]ow[address] [place], [place] [address]e. Far[address] Le[address] CT HEAD WO CONon 11-23-2021 CT HEAD WO CON Normal The [facility] CULTURE BLOODon 11-23-2021 Microscopic examination of blood, culture Culture Observations: NO GROWTH AT 5 DAYS. Normal [facility] Comment on above: Performed By: #### B LDCX2 ####[facility] [address] [place], [place] [address]Iz. Farhat Leal Covid-19 PCR (CVDTB)on SARS-CoV-2 (COVID-19) RNA JOSH+probe Ql (Unsp spec) Not detected Normal NOT DETECTED [facility] Comment on above: Result Comment: When diagnostic testing is negative, the possibility of a false negative should be considered inthe context of a patient's recent exposures and the presence of clinical signs and symptomsconsistent with SARS-CoV-2.This test is not yet approved or cleared by the [place] FDA. When there are no FDA-approved or cleared tests available, and other criteria are met, FDA can make tests available under an emergency access mechanism called an Emergency Use Authorization (EUA). The EUA for this test is supported by the [place] of Health and Human Service's declaration that circumstances exist to justify the emergency use of in vitro diagnostics for the detection and/or diagnosis of the virus that causes COVID-19. This EUA will remain in effect for the duration of the COVID-19 declaration justifying emergency of IVDs, unless it is terminated or revoked by the FDA (after which the test may no longer be used). Performed By: #### C VDTBH ####[facility] [address] [place], [place] [address]Bp. Farhat Leal LACTATE/LACTIC ACIDon 2021 Lactate [Moles/Vol] 1.3 mmol/L Normal 0.4-1.9 [facility] Comment on above: Performed By: #### L ACT ####[facility] [address] [place] [address]Dr. Farhat Leal Lactate [Moles/Vol] 1.3 mmol/L Normal 0.4-1.9 [facility] Comment on above: Performed By: #### L ACT ####[facility] Qgyqrkydrq2[address] [place] [address]Dr. Farhat Leal POINT OF CARE GLUCOSEon Glucose [Mass/Vol] 252 mg/dL Critically high 74-106 [facility] Comment on above: Performed By: #### P OCGLUC ####[facility] Ktepr[address]rcgq[address] [place] [address]Dr. Farhat Leal PROF 14(COMP METB)on 022 Albumin [Mass/Vol] 1.6 g/dL Critically low 3.4-5.[address] [facility] Comment on above: Performed By: #### C MP, CMADM, BNP ####[facility] Critsbzxnc[address] [place] [address]Dr. Farhat Leal Albumin/Globulin [Mass ratio] 0.4 {ratio} Normal [facility] Comment on above: Performed By: #### C MP, CMADM, BNP ####[facility] Wuimsckduz[address] [place] [address]Dr. Farhat Leal ALP [Catalytic activity/Vol] 98 U/L Normal 46-116 [facility] Comment on above: Performed By: #### C MP, CMADM, BNP ####[facility] Blxbxeubme[address] [place] [address]Dr. Farhat Leal ALT [Catalytic activity/Vol] 52 U/L Normal 16-63 [facility] Comment on above: Performed By: #### C MP, CMADM, BNP ####[facility] Onivbywwgq13[address] [place] [address]Dr. Farhat Leal Anion gap [Moles/Vol] 9.8 mmol/L Normal [facility] Comment on above: Performed By: #### C MP, CMADM, BNP ####[facility] Sqrodeyfyd[address] [place] [address]Dr. Farhat Leal AST [Catalytic activity/Vol] 122 U/L Critically high 15-37 [facility] Comment on above: Performed By: #### C MP, CMADM, BNP ####[facility] Xxdpnsrghh[address] [place] [address]Dr. Farhat Leal Bilirubin [Mass/Vol] 0.7 mg/dL Normal 0.2-1.0 [facility] Comment on above: Performed By: #### C MP, CMADM, BNP ####[facility] Pvfuepjfow60[address] [place] [address]Dr. Farhat Leal Calcium [Mass/Vol] 8.6 mg/dL Normal 8.5-10.1 [facility] Comment on above: Performed By: #### C MP, CMADM, BNP ####[facility] Mpjvwdqoiu[address] [place], [place] [address]Dr. Farhat Leal Chloride [Moles/Vol] 95 mmol/L Critically low 98-107 [facility] Comment on above: Performed By: #### C MP, CMADM, BNP ####[facility] Snxyxqbecr[address] [place], [place] [address]Dr. Farhat Leal CO2 [Moles/Vol] 29.6 mmol/L Normal 21.0-32.0 [facility] Comment on above: Performed By: #### C MP, CMADM, BNP ####[facility] Tfdzfnjbiu9135 [place] [address]Dr. Farhat Leal Creatinine [Mass/Vol] 1.49 mg/dL Critically high 0.70-1.30 [facility] Comment on above: Performed By: #### C MP, CMADM, BNP ####[facility] Gloxdrejin[address] [place] [address]Dr. Farhat Leal EGFR-AF KYRGYZ 55 mL/min/1.73m2 Critically low >=60 [facility] Comment on above: Performed By: #### C MP, CMADM, BNP ####[facility] Gfbrivjgqs[address] [place], [place] [address]Dr. Farhat Leal EGFR-NON AF KYRGYZ 46 mL/min/1.73m2 Critically low >=60 [facility] Comment on above: Performed By: #### C MP, CMADM, BNP ####[facility] Sahnthclqv075[address] [place] [address]Dr. Farhat Leal Globulin (S) [Mass/Vol] 4.3 g/dL Normal [facility] Comment on above: Performed By: #### C MP, CMADM, BNP ####[facility] Bevkfzkrxl7167 [place] [address]Dr. Farhat Leal Glucose [Mass/Vol] 213 mg/dL Critically high 74-106 T [facility] Comment on above: Performed By: #### C MP, CMADM, BNP ####[facility] Veoewmhotd2852 [place] [address]Dr. Farhat Leal Potassium [Moles/Vol] 4.4 mmol/L Normal 3.5-5.1 [facility] Comment on above: Performed By: #### C MP, CMADM, BNP ####[facility] Veepzgxpog[address] [place], [place] [address]Dr. Farhat Leal Protein [Mass/Vol] 5.9 g/dL Critically low 6.4-8.2 Th [facility] Comment on above: Performed By: #### C MP, CMADM, BNP ####[facility] Qhrytbhwdk85[address] [place], [place] [address]Dr. Farhat Leal Sodium [Moles/Vol] 130 mmol/L Critically low 136-145 Th [facility] Comment on above: Performed By: #### C MP, CMADM, BNP ####[facility] Quhdzrdvtx[address] [place], [place] [address]Dr. Farhat Leal Urea nitrogen [Mass/Vol] 46.0 mg/dL Critically high 7.0-18.0 [facility] Comment on above: Performed By: #### C MP, CMADM, BNP ####[facility] Okqmccvmox18[address] [place], [place] [address]Dr. Farhat Leal Urea nitrogen/Creatinine [Mass ratio] 30.9 mg/mg Normal [facility] Comment on above: Performed By: #### C MP, CMADM, BNP ####[facility] Fqmlxsadvo60[address] [place] [id number]. Farhat Leal PROTIMEon 11-23-2021 INR Coag (PPP) [Relative time] 2.55 {INR} Normal [facility] Comment on above: Performed By: #### P TT, PT ####[facility] Nzwujqzerh14[address] [place] [address]Dr. Farhat Leal INR GUIDELINES SEE BELOW Normal The [facility] Comment on above: Result Comment: MALINA RED INR: 2.0 - 3.0 CONDITIONS NOT LISTED BELOW 2.5 - 3.5 FOR PROSTHETIC HEART VALVE REPLACEMENT 2.5 - 3.5 RECURRENT THROMBOSIS Performed By: #### P TT, PT ####[facility] Jxhsnbjdth[address] [place], [place] [address]Dr. Farhat Leal PT Coag (PPP) [Time] 25.9 s Critically high 9.0-11.6 [facility] Comment on above: Performed By: #### P TT, PT ####[facility] Rjxexhusix5[address] [place], [place] [address]Dr. Farhat Leal PTTon 11-23-2021 aPTT Coag (Bld) [Time] 39.9 s Critically high 22.3-36. 2 [facility] Comment on above: Performed By: #### P TT, PT ####[facility] Yiphamzthx8799[address] [place], [place] [address]Dr. Farhat Leal XR CHEST 1 Von 11-23-2021 XR CHEST 1 V Normal [facility] XR HEEL RT 2Von 11-23-2021 XR HEEL RT 2V Normal [facility] XR FOOT RT MIN 3 VIEWSon XR FOOT RT MIN 3 VIEWS Normal [facility] US ARTERY LEG RTon 2 US ARTERY LEG RT Normal [facility] CBC AUTO DIFFon 09-24-2021 BASO # 0.1 103/ul Normal 0.0-0.1 [facility] Comment on above: Performed By: #### C BC ####[facility] Htwjiaexze[address] [place], [place] [address]Dr. Farhat Leal Basophils/100 WBC (Bld) 0.7 % Normal 0.2-2.0 [facility] Comment on above: Performed By: #### C BC ####[facility] Jxnqamlqex7131 [place] [address]Dr. Farhat Leal EO # 0.3 103/ul Normal 0.0-0.7 [facility] Comment on above: Performed By: #### C BC ####[facility] Eizjidpjvf9[address] [place], [place] [address]Dr. Farhat Leal Eosinophils/100 WBC (Bld) 3.9 % Normal 0.9-7.0 [facility] Comment on above: Performed By: #### C BC ####[facility] Ckxeyhwxtu607[address] [place], [place] [address]Dr. Farhat Leal Erythrocyte distribution width (RBC) [Ratio] 12.6 % Normal 11.0-15.0 [facility] Comment on above: Performed By: #### C BC ####[facility] Jxbehwviqb294[address] [place], [place] [address]Dr. Farhat Leal Hematocrit (Bld) [Volume fraction] 38.9 % Critically low 42.0-54.0 [facility] Comment on above: Performed By: #### C BC ####[facility] Eszspkujlv6932[address] [place], [place] [address]Dr. Farhat Leal Hemoglobin (Bld) [Mass/Vol] 12.8 g/dL Critically low 14.0-18.0 [facility] Comment on above: Performed By: #### C BC ####[facility] Hmzhpchjfg[address] [place], [place] [address]Dr. Farhat Leal IG # 0.10 10e3/ul Critically high 0.00-0.03 [facility] Comment on above: Performed By: #### C BC ####[facility] Remvwutjaw87[address] [place], [place] [address]Dr. Farhat Leal IG % 1.2 % Critically high 0.0-0.5 [facility] Comment on above: Performed By: #### C BC ####[facility] Rbbzwogsxv35264[address] [place], [place] [address]Dr. Farhat Leal LYMPH # 2.1 103/ul Normal 1.2-3.8 [facility] Comment on above: Performed By: #### C BC ####[facility] Jjaafrwzbh3680 [place] [address]Dr. Farhat Leal Lymphocytes/100 WBC (Bld) 25.9 % Normal 20.5-60.0 [facility] Comment on above: Performed By: #### C BC ####[facility] Yhrtvmyulj0396 [place] [address]DrSkylar Leal MANUAL DIFF REQ NO Normal [facility] Comment on above: Performed By: #### C BC ####[facility] Zpyytsualb5036 [place] [address]Dr. Farhat Leal MCH (RBC) [Entitic mass] 31.1 pg Normal 25.9-34.0 [facility] Comment on above: Performed By: #### C BC ####[facility] Plicgbsyby20[address] [place], [place] [address]Dr. Farhat Leal MCHC (RBC) [Mass/Vol] 32.9 g/dL Normal 29.9-35.2 [facility] Comment on above: Performed By: #### C BC ####[facility] Xaltyxdfsf360[address] [place], [place] [address]DrSkylar Leal MCV (RBC) [Entitic vol] 94.6 fL Critically high 80.0-94.0 [facility] Comment on above: Performed By: #### C BC ####[facility] Tnikxyepyc260[address] [place], [place] [address]Dr. Farhat Leal MONO # 1.2 103/ul Critically high 0.3-0.8 [facility] Comment on above: Performed By: #### C BC ####[facility] Lprgercqao1150[address] [place], [place] [address]DrSkylar Leal Monocytes/100 WBC (Bld) 14.1 % Critically high 1.7-12.0 [facility] Comment on above: Performed By: #### C BC ####[facility] Ebusmmmbqu[address] [place], [place] [address]Dr. Farhat Leal NEUT # 4.4 103/ul Normal 1.4-6.5 [facility] Comment on above: Performed By: #### C BC ####[facility] Sqoswftfpd0356 [place] [address]DrSkylar Leal Neutrophils/100 WBC (Bld) 54.2 % Normal 43.0-75.0 [facility] Comment on above: Performed By: #### C BC ####[facility] Fsxfvivcuh7522 [place] [address]Dr. Farhat Leal Platelet mean volume (Bld) [Entitic vol] 9.9 fL Normal 9.5-13.5 [facility] Comment on above: Performed By: #### C BC ####[facility] Byywbrltbn928[address] [place], [place] [address]Dr. Farhat Leal PLT 224 103/ul Normal 150-450 [facility] Comment on above: Performed By: #### C BC ####[facility] Psjvpfkyjk657[address] [place], [place] [address]DrSkylar Leal RBC 4.11 106/ul Critically low 4.70-6.10 [facility] Comment on above: Performed By: #### C BC ####[facility] Yrezqjzcip70[address] [place], [place] [address]DrSkylar Leal WBC 8.2 103/ul Normal 4.0-11.0 [facility] Comment on above: Performed By: #### C BC ####[facility] Vexfaxnyuw54[address] [place], [place] [address]DrSkylar Leal PROF CHEM 8 (BAS METB)on Anion gap [Moles/Vol] 9.6 mmol/L Normal [facility] Comment on above: Performed By: #### B MP ####[facility] Oitlowthvu13[address] [place], [place] [address]DrSkylar Leal Calcium [Mass/Vol] 8.6 mg/dL Normal 8.5-10.1 [facility] Comment on above: Performed By: #### B MP ####[facility] Kiueijhgwr9856 [place] [address]DrSkylar Leal Chloride [Moles/Vol] 94 mmol/L Critically low 98-107 [facility] Comment on above: Performed By: #### B MP ####[facility] Lpoflauuho367[address] [place], [place] [address]Dr. Farhat Leal CO2 [Moles/Vol] 28.1 mmol/L Normal 21.0-32.0 [facility] Comment on above: Performed By: #### B MP ####[facility] Aslleesfqx655[address] [place], [place] [address]Dr. Farhat Leal Creatinine [Mass/Vol] 1.91 mg/dL Critically high 0.70-1.30 [facility] Comment on above: Performed By: #### B MP ####[facility] Vtdpznpwaj35[address] [place], [place] [address]Dr. Farhat Leal EGFR-AF KYRGYZ 42 mL/min/1.73m2 Critically low >=60 [facility] Comment on above: Performed By: #### B MP ####[facility] Hldthsbebv888[address] [place], [place] [address]Dr. Farhat Leal EGFR-NON AF KYRGYZ 34 mL/min/1.73m2 Critically low >=60 [facility] Comment on above: Performed By: #### B MP ####[facility] Ceqnrnoplv9814[address] [place], [place] [address]Dr. Farhat Leal Glucose [Mass/Vol] 314 mg/dL Critically high 74-106 [facility] Comment on above: Performed By: #### B MP ####[facility] Qukmnnovry[address] [place], [place] [address]DrSkylar Leal Potassium [Moles/Vol] 4.7 mmol/L Normal 3.5-5.1 [facility] Comment on above: Performed By: #### B MP ####[facility] Ptgthnvwrx2080[address] [place], [place] [address]Dr. Farhat Leal Sodium [Moles/Vol] 127 mmol/L Critically low 136-145 Th [facility] Comment on above: Performed By: #### B MP ####[facility] Sdnrvmgrug959[address] [place], [place] [address]DrSkylar Leal Urea nitrogen [Mass/Vol] 79.0 mg/dL Critically high 7.0-18.0 [facility] Comment on above: Result Comment: repe ated Performed By: #### B MP ####[facility] Euqksjwizj134[address] [place], [place] [address]Dr. Farhat Elvis Urea nitrogen/Creatinine [Mass ratio] 41.4 mg/mg Normal [facility] Comment on above: Performed By: #### B MP ####[facility] Cpqvrkvpox04[address] [place], [place] [address]Dr. Farhat Elvis PTT HEPARIN MONITORon 2021 aPTT Coag (Bld) [Time] 42.7 s Normal 39.5-54.[address] [facility] Comment on above: Performed By: #### P TTHEP ####[facility] Ginazsccyp[address] [place], [place] [address]Dr. Farhat Leal aPTT Coag (Bld) [Time] 56.7 s Critically high 39.5-54. 2 [facility] Comment on above: Performed By: #### P TTHEP ####[facility] Maxdufjkgj896[address] [place], [place] [address]Dr. Farhat Elvis CBC AUTO DIFFon 09-23-2021 BASO # 0.1 103/ul Normal 0.0-0.1 [facility] Comment on above: Performed By: #### C BC ####[facility] Umarqoxthh58[address] [place], [place] [address]Dr. Farhat Leal Basophils/100 WBC (Bld) 0.6 % Normal 0.2-2.0 [facility] Comment on above: Performed By: #### C BC ####[facility] Geialrqpab9367[address] [place], [place] [address]Dr. Farhat Leal EO # 0.2 103/ul Normal 0.0-0.7 [facility] Comment on above: Performed By: #### C BC ####[facility] Jczrgkjqrj97[address] [place], [place] [address]Dr. Farhat Leal Eosinophils/100 WBC (Bld) 2.6 % Normal 0.9-7.0 [facility] Comment on above: Performed By: #### C BC ####[facility] Mewukgvhah8911 [place] [address]Dr. Farhat Leal Erythrocyte distribution width (RBC) [Ratio] 12.4 % Normal 11.0-15.0 [facility] Comment on above: Performed By: #### C BC ####[facility] Ijdljdixra9996 [place] [address]Dr. Farhat Leal Hematocrit (Bld) [Volume fraction] 38.4 % Critically low 42.0-54.0 [facility] Comment on above: Performed By: #### C BC ####[facility] Njqfljuzaz8869[address] [place], [place] [address]Dr. Farhat Leal Hemoglobin (Bld) [Mass/Vol] 12.8 g/dL Critically low 14.0-18.0 [facility] Comment on above: Performed By: #### C BC ####[facility] Rldvifjstw809[address] [place], [place] [address]DrSkylar Farhat Leal IG # 0.06 10e3/ul Critically high 0.00-0.03 [facility] Comment on above: Performed By: #### C BC ####[facility] Umjkqamjbv020[address] [place], [place] [address]DrSkylar Farhat Leal IG % 0.8 % Critically high 0.0-0.[address] [facility] Comment on above: Performed By: #### C BC ####[facility] Ywfxzbnrpq159[address] [place], [place] [address]DrSkylar Farhat Elvis LYMPH # 1.5 103/ul Normal 1.2-3.8 [facility] Comment on above: Performed By: #### C BC ####[facility] Gbqxbxybso15[address] [place], [place] [address]DrSkylar Farhat Elvis Lymphocytes/100 WBC (Bld) 19.7 % Critically low 20.5-60.0 [facility] Comment on above: Performed By: #### C BC ####[facility] Slokohcobw175[address] [place], [place] [address]DrSkylar Farhat Elvis MANUAL DIFF REQ NO Normal [facility] Comment on above: Performed By: #### C BC ####[facility] Uktfekrqfn9895 [place] [address]DrSkylar Leal MCH (RBC) [Entitic mass] 31.6 pg Normal 25.9-34.0 [facility] Comment on above: Performed By: #### C BC ####[facility] Ruqesmgosy9681 [place] [address]DrSkylar Leal MCHC (RBC) [Mass/Vol] 33.3 g/dL Normal 29.9-35.2 [facility] Comment on above: Performed By: #### C BC ####[facility] Uwrhxocvst8843 [place] [address]DrSkylar Leal MCV (RBC) [Entitic vol] 94.8 fL Critically high 80.0-94.0 [facility] Comment on above: Performed By: #### C BC ####[facility] Ghqbximtys332[address] [place], [place] [address]DrSkylar Leal MONO # 1.0 103/ul Critically high 0.3-0.8 [facility] Comment on above: Performed By: #### C BC ####[facility] Vwnwpquxua9834[address] [place], [place] [address]DrSkylar Leal Monocytes/100 WBC (Bld) 13.0 % Critically high 1.7-12.0 [facility] Comment on above: Performed By: #### C BC ####[facility] Cvgrzquyec14[address] [place], [place] [address]DrSkylar Leal NEUT # 4.9 103/ul Normal 1.4-6.5 [facility] Comment on above: Performed By: #### C BC ####[facility] Drkrmfbeuf5830[address] [place], [place] [address]DrSkylar Leal Neutrophils/100 WBC (Bld) 63.3 % Normal 43.0-75.0 [facility] Comment on above: Performed By: #### C BC ####[facility] Ookgywpifc005[address] [place], [place] [address]DrSkylar Leal Platelet mean volume (Bld) [Entitic vol] 10.7 fL Normal 9.5-13.5 [facility] Comment on above: Performed By: #### C BC ####[facility] Pjdptuzwgi0653 [place] [address]Dr. Farhat Leal PLT 205 103/ul Normal 150-450 [facility] Comment on above: Performed By: #### C BC ####[facility] Jfdwxxpwpy8901 [place] [address]Dr. Farhat Leal RBC 4.05 106/ul Critically low 4.70-6.[address] [facility] Comment on above: Performed By: #### C BC ####[facility] Yvlcmgegcl7748 [place] [address]Dr. Farhat Leal WBC 7.7 103/ul Normal 4.0-11.0 [facility] Comment on above: Performed By: #### C BC ####[facility] Duvaoatbwo08[address] [place], [place] [address]Dr. Farhat Leal PROF CHEM 8 (BAS METB)on Anion gap [Moles/Vol] 15.5 mmol/L Normal [facility] Comment on above: Performed By: #### B MP ####[facility] Nooqegbvxo089[address] [place], [place] [address]Dr. Farhat Leal Calcium [Mass/Vol] 9.1 mg/dL Normal 8.5-10.1 [facility] Comment on above: Performed By: #### B MP ####[facility] Mbrpnqyehq916[address] [place], [place] [address]Dr. Farhat Leal Chloride [Moles/Vol] 92 mmol/L Critically low 98-107 [facility] Comment on above: Performed By: #### B MP ####[facility] Jccjxxrqwf885[address] [place], [place] [address]Dr. Farhat Leal CO2 [Moles/Vol] 28.5 mmol/L Normal 21.0-32.0 [facility] Comment on above: Performed By: #### B MP ####[facility] Ddasozolyz79[address] [place], [place] [address]Dr. Farhat Leal Creatinine [Mass/Vol] 1.84 mg/dL Critically high 0.70-1.30 [facility] Comment on above: Performed By: #### B MP ####[facility] Pncpwkcwle5[address] [place], [place] [address]Dr. Farhat Leal EGFR-AF KYRGYZ 44 mL/min/1.73m2 Critically low >=60 [facility] Comment on above: Performed By: #### B MP ####[facility] Rahhutxusn776[address] [place], [place] [address]Dr. Farhat Leal EGFR-NON AF KYRGYZ 36 mL/min/1.73m2 Critically low >=60 [facility] Comment on above: Performed By: #### B MP ####[facility] Jixyyisjdm38[address] [place], [place] [address]Dr. Farhat Leal Glucose [Mass/Vol] 267 mg/dL Critically high 74-106 T [facility] Comment on above: Performed By: #### B MP ####[facility] Icdqxvftti160[address] [place], [place] [address]Dr. Farhat Leal Potassium [Moles/Vol] 5.0 mmol/L Normal 3.5-5.1 [facility] Comment on above: Performed By: #### B MP ####[facility] Uxtvrcadcf35[address] [place], [place] [address]Dr. Farhat Leal Sodium [Moles/Vol] 131 mmol/L Critically low 136-145 Th [facility] Comment on above: Performed By: #### B MP ####[facility] Vuypbbxmvr8913[address] [place], [place] [address]Dr. Farhat Leal Urea nitrogen [Mass/Vol] 76.0 mg/dL Critically high 7.0-18.0 [facility] Comment on above: Performed By: #### B MP ####[facility] Grcwjgtsdm[address] [place], [place] [address]Dr. Farhat Leal Urea nitrogen/Creatinine [Mass ratio] 41.3 mg/mg Normal [facility] Comment on above: Performed By: #### B MP ####[facility] Lloukufpfo[address] [place], [place] [address]Dr. Farhat Leal PTT HEPARIN MONITORon 2021 aPTT Coag (Bld) [Time] 57.2 s Critically high 39.5-54. 2 [facility] Comment on above: Performed By: #### P TTHEP ####[facility] Agffyuvzwu8259[address] [place], [place] [address]Dr. Farhat Elvis aPTT Coag (Bld) [Time] 74.7 s Critically high 39.5-54. 2 [facility] Comment on above: Result Comment: repe ated Performed By: #### P TTHEP ####[facility] Bjhmspjlcy1440[address] [place], [place] [address]Dr. Madelynlorri Elvis aPTT Coag (Bld) [Time] 45.5 s Normal 39.5-54.[address] [facility] Comment on above: Performed By: #### P TTHEP ####[facility] Caqwibktjg[address]264[address] [place], [place] [address]Dr. Madelynlorri Elvis CBC AUTO DIFFon 09-22-2021 BASO # 0.1 103/ul Normal 0.0-0.1 [facility] Comment on above: Performed By: #### C BC ####[facility] Hgnviqonfm[address] [place], [place] [address]Dr. Farhat Leal Basophils/100 WBC (Bld) 0.7 % Normal 0.2-2.0 [facility] Comment on above: Performed By: #### C BC ####[facility] Kpasbfdiqi7514[address] [place], [place] [address]Dr. Farhat Leal EO # 0.3 103/ul Normal 0.0-0.7 [facility] Comment on above: Performed By: #### C BC ####[facility] Fyylmtlqgv[address] [place], [place] [address]Dr. Farhat Leal Eosinophils/100 WBC (Bld) 3.2 % Normal 0.9-7.0 [facility] Comment on above: Performed By: #### C BC ####[facility] Dexbhhoetk16[address] [place], [place] [address]Dr. Farhat Leal Erythrocyte distribution width (RBC) [Ratio] 12.5 % Normal 11.0-15.0 [facility] Comment on above: Performed By: #### C BC ####[facility] Yqyssolxzv3631 [place] [address]Dr. Farhat Leal Hematocrit (Bld) [Volume fraction] 40.5 % Critically low 42.0-54.0 [facility] Comment on above: Performed By: #### C BC ####[facility] Zqpssmfnvl3133 [place] [address]DrSkylar Leal Hemoglobin (Bld) [Mass/Vol] 13.4 g/dL Critically low 14.0-18.0 [facility] Comment on above: Performed By: #### C BC ####[facility] Orsxtmjcok[address] [place], [place] [address]DrSkylar Leal IG # 0.11 10e3/ul Critically high 0.00-0.03 [facility] Comment on above: Performed By: #### C BC ####[facility] Zfbubjgniy01[address] [place], [place] [address]DrkSylar Leal IG % 1.3 % Critically high 0.0-0.[address] [facility] Comment on above: Performed By: #### C BC ####[facility] Vlhcsuumpf[address] [place], [place] [address]DrSkylar Leal LYMPH # 1.7 103/ul Normal 1.2-3.8 [facility] Comment on above: Performed By: #### C BC ####[facility] Yxlivglhmb[address] [place], [place] [address]DrSkylar Leal Lymphocytes/100 WBC (Bld) 19.6 % Critically low 20.5-60.0 [facility] Comment on above: Performed By: #### C BC ####[facility] Fzmtgseaid13[address] [place], [place] [address]DrSkylar Leal MANUAL DIFF REQ NO Normal [facility] Comment on above: Performed By: #### C BC ####[facility] Cvqqgtggnt7508 [place] [address]DrSkylar Leal MCH (RBC) [Entitic mass] 31.1 pg Normal 25.9-34.0 [facility] Comment on above: Performed By: #### C BC ####[facility] Aeqkpvnaoa9217 [place] [address]Dr. Madelynlorri Elvis MCHC (RBC) [Mass/Vol] 33.1 g/dL Normal 29.9-35.2 [facility] Comment on above: Performed By: #### C BC ####[facility] Ulwparaapp5642 [place] [address]DrSkylar Leal MCV (RBC) [Entitic vol] 94.0 fL Normal 80.0-94.0 [facility] Comment on above: Performed By: #### C BC ####[facility] Ljugrxwujp4318 [place] [address]DrSkylar Leal MONO # 1.1 103/ul Critically high 0.3-0.8 [facility] Comment on above: Performed By: #### C BC ####[facility] [facility] Uylrssrzgl[address] [place], [place] [address]Dr. Farhat Leal Monocytes/100 WBC (Bld) 12.7 % Critically high 1.7-12.0 [facility] Comment on above: Performed By: #### C BC ####[facility] Ogjwjrzwgt[address] [place], [place] [address]DrSkylar Leal NEUT # 5.3 103/ul Normal 1.4-6.5 [facility] Comment on above: Performed By: #### C BC ####[facility] Xsnxfxxfas97[address] [place], [place] [address]Dr. Farhat Leal Neutrophils/100 WBC (Bld) 62.5 % Normal 43.0-75.0 [facility] Comment on above: Performed By: #### C BC ####[facility] Ljbsbbqcey[address] [place], [place] [address]DrSkylar Leal Platelet mean volume (Bld) [Entitic vol] 10.1 fL Normal 9.5-13.5 [facility] Comment on above: Performed By: #### C BC ####[facility] Fimzzeqjiz[address] [place], [place] [address]Dr. Farhat Leal PLT 220 103/ul Normal 150-450 [facility] Comment on above: Performed By: #### C BC ####[facility] Kk[address]qsrbfa98[address] [place] [address]Dr. Farhat Leal RBC 4.31 106/ul Critically low 4.70-6.10 [facility] Comment on above: Performed By: #### C BC ####[facility] Mgxjfuyfko20[address] [place] [address]Dr. Farhat Leal WBC 8.4 103/ul Normal 4.0-11.0 [facility] Comment on above: Performed By: #### C BC ####[facility] Jjgktnejbo7787 [place] [address]Dr. Farhat Leal PROF CHEM 8 (BAS METB)on Anion gap [Moles/Vol] 15.5 mmol/L Normal [facility] Comment on above: Performed By: #### B MP ####[facility] Pclistnjhp[address] [place], [place] [address]Dr. Farhat Leal Calcium [Mass/Vol] 8.9 mg/dL Normal 8.5-10.1 [facility] Comment on above: Performed By: #### B MP ####[facility] Shbvitdutr62[address] [place], [place] [address]DrSkylar Leal Chloride [Moles/Vol] 92 mmol/L Critically low 98-107 [facility] Comment on above: Performed By: #### B MP ####[facility] Jpxfrxhpek160[address] [place], [place] [address]DrSkylar Leal CO2 [Moles/Vol] 25.7 mmol/L Normal 21.0-32.0 [facility] Comment on above: Performed By: #### B MP ####[facility] Lgoinxleuy790[address] [place], [place] [address]Dr. Farhat Leal Creatinine [Mass/Vol] 1.85 mg/dL Critically high 0.70-1.30 [facility] Comment on above: Performed By: #### B MP ####[facility] Ojozudpmza796[address] [place], [place] [address]Dr. Farhat Leal EGFR-AF KYRGYZ 43 mL/min/1.73m2 Critically low >=60 [facility] Comment on above: Performed By: #### B MP ####[facility] Xiqsebbrfe4312[address] [place], [place] [address]Dr. Farhat Elvis EGFR-NON AF KYRGYZ 36 mL/min/1.73m2 Critically low >=60 [facility] Comment on above: Performed By: #### B MP ####[facility] Jfadqmphuv5067[address] [place], [place] [address]Dr. Farhat Leal Glucose [Mass/Vol] 410 mg/dL Critically high 74-106 T [facility] Comment on above: Performed By: #### B MP ####[facility] Nugcqmdjxr250[address] [place], [place] [address]Dr. Farhat Leal Potassium [Moles/Vol] 5.2 mmol/L Critically high 3.5-5.1 [facility] Comment on above: Performed By: #### B MP ####[facility] Icpwjjamkq214[address] [place], [place] [address]Dr. Farhat Leal Sodium [Moles/Vol] 128 mmol/L Critically low 136-145 Th [facility] Comment on above: Performed By: #### B MP ####[facility] Ewnlkwfmpj686[address] [place], [place] [address]Dr. Farhat Leal Urea nitrogen [Mass/Vol] 75.0 mg/dL Critically high 7.0-18.0 [facility] Comment on above: Performed By: #### B MP ####[facility] Ncekxnwitd057[address] [place], [place] [address]Dr. Farhat Leal Urea nitrogen/Creatinine [Mass ratio] 40.5 mg/mg Normal [facility] Comment on above: Performed By: #### B MP ####[facility] Xvwyhixowu5767[address] [place], [place] [address]Dr. Farhat Leal PTT HEPARIN MONITORon 2021 aPTT Coag (Bld) [Time] 51.2 s Normal 39.5-54.2 Th [facility] Comment on above: Performed By: #### P TTHEP ####[facility] Dnadnvmtbi[address] [place], [place] [address]Dr. Farhat Leal aPTT Coag (Bld) [Time] 55.6 s Critically high 39.5-54. 2 [facility] Comment on above: Performed By: #### P TTHEP ####[facility] Dojyrrbyae57[address] [place], [place] [address]Dr. Farhat Leal aPTT Coag (Bld) [Time] 46.1 s Normal 39.5-54.[address] [facility] Comment on above: Performed By: #### P TTHEP ####[facility] Klszuveqdv6[address] [place], [place] [address]Dr. Farhat Elvis aPTT Coag (Bld) [Time] 53.8 s Normal 39.5-54.[address] [facility] Comment on above: Performed By: #### P TTHEP ####[facility] Tcyobswvlr1723[address] [place], [place] [address]Dr. Farhat Elvis CBC AUTO DIFFon 09-21-2021 BASO # 0.1 103/ul Normal 0.0-0.1 [facility] Comment on above: Performed By: #### C BC ####[facility] Spakjmobvw[address] [place], [place] [address]Dr. Farhat Elvis Basophils/100 WBC (Bld) 0.8 % Normal 0.2-2.0 [facility] Comment on above: Performed By: #### C BC ####[facility] Rlfrvhalyc2733[address] [place], [place] [address]Dr. Farhat Elvis EO # 0.4 103/ul Normal 0.0-0.7 [facility] Comment on above: Performed By: #### C BC ####[facility] Pgswngptgt0630[address] [place], [place] [address]Dr. Farhat Elvis Eosinophils/100 WBC (Bld) 4.3 % Normal 0.9-7.0 [facility] Comment on above: Performed By: #### C BC ####[facility] Hrvuqclykq818[address] [place], [place] [address]Dr. Farhat Elvis Erythrocyte distribution width (RBC) [Ratio] 12.5 % Normal 11.0-15.0 [facility] Comment on above: Performed By: #### C BC ####[facility] Eaaxejarrz8865 [place] [address]DrSkylar Leal Hematocrit (Bld) [Volume fraction] 40.8 % Critically low 42.0-54.0 [facility] Comment on above: Performed By: #### C BC ####[facility] Gdpzvopcry8187 [place] [address]DrSkylar Leal Hemoglobin (Bld) [Mass/Vol] 13.5 g/dL Critically low 14.0-18.0 [facility] Comment on above: Performed By: #### C BC ####[facility] Iequddzrir7639[address] [place], [place] [address]DrSkylar Leal IG # 0.10 10e3/ul Critically high 0.00-0.03 [facility] Comment on above: Performed By: #### C BC ####[facility] Jqblijzhfp411[address] [place], [place] [address]DrSkylar Leal IG % 1.2 % Critically high 0.0-0.[address] [facility] Comment on above: Performed By: #### C BC ####[facility] Xnjkaybudq608[address] [place], [place] [address]DrSkylar Leal LYMPH # 1.3 103/ul Normal 1.2-3.8 [facility] Comment on above: Performed By: #### C BC ####[facility] Rrvwybowpz12[address] [place], [place] [address]DrSkylar Leal Lymphocytes/100 WBC (Bld) 15.4 % Critically low 20.5-60.0 [facility] Comment on above: Performed By: #### C BC ####[facility] Ppnitewxdk30[address] [place], [place] [address]DrSkylar Leal MANUAL DIFF REQ NO Normal [facility] Comment on above: Performed By: #### C BC ####[facility] Qyeapyrrjd197[address] [place], [place] [address]DrSkylar Leal MCH (RBC) [Entitic mass] 31.0 pg Normal 25.9-34.0 [facility] Comment on above: Performed By: #### C BC ####[facility] Jsjfzdhvfh9507 [place] [address]DrSkylar Leal MCHC (RBC) [Mass/Vol] 33.1 g/dL Normal 29.9-35.2 [facility] Comment on above: Performed By: #### C BC ####[facility] Hgitfvemix7707 [place] [address]DrSkylar Leal MCV (RBC) [Entitic vol] 93.8 fL Normal 80.0-94.0 [facility] Comment on above: Performed By: #### C BC ####[facility] Ixfneqyrab1087[address] [place], [place] [address]DrSkylar Leal MONO # 1.2 103/ul Critically high 0.3-0.8 [facility] Comment on above: Performed By: #### C BC ####[facility] Ndykzomqhi[address] [place], [place] [address]DrSkylar Leal Monocytes/100 WBC (Bld) 13.6 % Critically high 1.7-12.0 [facility] Comment on above: Performed By: #### C BC ####[facility] Osuobgstrg[address] [place], [place] [address]DrSkylar Leal NEUT # 5.5 103/ul Normal 1.4-6.5 [facility] Comment on above: Performed By: #### C BC ####[facility] Tlkmmmwohk[address] [place], [place] [address]DrSkylar Leal Neutrophils/100 WBC (Bld) 64.7 % Normal 43.0-75.0 [facility] Comment on above: Performed By: #### C BC ####[facility] Kfdtlqmfeb[address] [place], [place] [address]DrSkylar Leal Platelet mean volume (Bld) [Entitic vol] 9.8 fL Normal 9.5-13.5 [facility] Comment on above: Performed By: #### C BC ####[facility] Zwlegtvbqy8[address] [place], [place] [address]DrSkylar Leal PLT 206 103/ul Normal 150-450 [facility] Comment on above: Performed By: #### C BC ####[facility] Tftxrzuyla3318 [place] [id number]. Farhta Lela RBC 4.35 106/ul Critically low 4.70-6.[address] [facility] Comment on above: Performed By: #### C BC ####[facility] Wyyoqjvpeh7115 [place] [phone] Leal WBC 8.4 103/ul Normal 4.0-11.0 [facility] Comment on above: Performed By: #### C BC ####[facility] Ambmfkmgyo274[address] [place], [place] [address]DrSkylar Leal PROF CHEM 8 (BAS METB)on Anion gap [Moles/Vol] 12.3 mmol/L Normal [facility] Comment on above: Performed By: #### B MP ####[facility] Rxazvjwbuq933[address] [place], [place] [address]DrSkylar Leal Calcium [Mass/Vol] 8.6 mg/dL Normal 8.5-10.1 [facility] Comment on above: Performed By: #### B MP ####[facility] Hwpncwqlfw417[address] [place], [place] [address]DrSkylar Leal Chloride [Moles/Vol] 94 mmol/L Critically low 98-107 [facility] Comment on above: Performed By: #### B MP ####[facility] Ynkzcqnqrp7[address] [place], [place] [address]DrSkylar Leal CO2 [Moles/Vol] 30.8 mmol/L Normal 21.0-32.0 [facility] Comment on above: Performed By: #### B MP ####[facility] Mknaelxxca7[address] [place], [place] [address]DrSkylar Leal Creatinine [Mass/Vol] 1.99 mg/dL Critically high 0.70-1.30 [facility] Comment on above: Performed By: #### B MP ####[facility] Peyoieswsw6[address] [place], [place] [address]DrSkylar Leal EGFR-AF KYRGYZ 40 mL/min/1.73m2 Critically low >=60 [facility] Comment on above: Performed By: #### B MP ####[facility] Ikrfjffhzt64264[address] [place], [place] [address]Dr. Farhat Leal EGFR-NON AF KYRGYZ 33 mL/min/1.73m2 Critically low >=60 [facility] Comment on above: Performed By: #### B MP ####[facility] Tdenjyetyf4767[address] [place], [place] [address]Dr. Farhat Leal Glucose [Mass/Vol] 264 mg/dL Critically high 74-106 T [facility] Comment on above: Performed By: #### B MP ####[facility] Vpewflsesq60[address] [place], [place] [address]Dr. Farhat Leal Potassium [Moles/Vol] 5.1 mmol/L Normal 3.5-5.1 [facility] Comment on above: Performed By: #### B MP ####[facility] Aezammaehk7[address] [place], [place] [address]Dr. Farhat Leal Sodium [Moles/Vol] 132 mmol/L Critically low 136-145 [facility] Comment on above: Performed By: #### B MP ####[facility] Grmlyrlcaj684[address] [place], [place] [address]Dr. Farhat Leal Urea nitrogen [Mass/Vol] 72.0 mg/dL Critically high 7.0-18.0 [facility] Comment on above: Performed By: #### B MP ####[facility] Lnqqtsbzwy9[address] [place], [place] [address]Dr. Farhat Leal Urea nitrogen/Creatinine [Mass ratio] 36.2 mg/mg Normal [facility] Comment on above: Performed By: #### B MP ####[facility] Txgwtmfqfc35364[address] [place], [place] [address]Dr. Farhat Leal PTT HEPARIN MONITORon 2021 aPTT Coag (Bld) [Time] 45.3 s Normal 39.5-54.2 [facility] Comment on above: Performed By: #### P TTHEP ####[facility] Gxrqhpsvig6539[address] [place], [place] [address]Dr. Farhat Leal aPTT Coag (Bld) [Time] 68.0 s Critically high 39.5-54. 2 [facility] Comment on above: Performed By: #### P TTHEP ####[facility] Caxsjjaald30[address] [place], [place] [address]Dr. Farhat Leal aPTT Coag (Bld) [Time] 69.4 s Critically high 39.5-54. 2 [facility] Comment on above: Performed By: #### P TTHEP ####[facility] Ffjxekztdp14[address] [place], [place] [address]Dr. Farhat Leal aPTT Coag (Bld) [Time] 53.5 s Normal 39.5-54.[address] [facility] Comment on above: Performed By: #### P TTHEP ####[facility] Eqzmfjvnrm1307[address] [place], [place] [address]Dr. Farhat Leal aPTT Coag (Bld) [Time] 126.9 s Critically high 39.5-54. 2 [facility] Comment on above: Performed By: #### P TTHEP ####[facility] Coqirffvoe6980[address] [place], [place] [address]Dr. Farhat Leal CBC AUTO DIFFon 09-20-2021 BASO # 0.1 103/ul Normal 0.0-0.1 [facility] Comment on above: Performed By: #### C BC ####[facility] Gwgoyxxzyj4725[address] [place], [place] [address]Dr. Farhat Leal Basophils/100 WBC (Bld) 0.7 % Normal 0.2-2.0 [facility] Comment on above: Performed By: #### C BC ####[facility] Uycagmndcp3447[address] [place], [place] [address]Dr. Farhat Leal EO # 0.2 103/ul Normal 0.0-0.7 [facility] Comment on above: Performed By: #### C BC ####[facility] Jmmffhkhxt[address] [place], [place] [address]Dr. Farhat Leal Eosinophils/100 WBC (Bld) 3.2 % Normal 0.9-7.0 [facility] Comment on above: Performed By: #### C BC ####[facility] Agvkatrqox1420 [place] [address]Dr. Farhat Leal Erythrocyte distribution width (RBC) [Ratio] 12.4 % Normal 11.0-15.0 [facility] Comment on above: Performed By: #### C BC ####[facility] Ghtdpymohb145[address] [place], [place] [address]Dr. Farhat Leal Hematocrit (Bld) [Volume fraction] 40.1 % Critically low 42.0-54.0 [facility] Comment on above: Performed By: #### C BC ####[facility] Ngopstzzci7214[address] [place], [place] [address]Dr. Farhat Leal Hemoglobin (Bld) [Mass/Vol] 13.4 g/dL Critically low 14.0-18.0 [facility] Comment on above: Performed By: #### C BC ####[facility] Xerwzfhukh326[address] [place], [place] [address]Dr. Farhat Leal IG # 0.08 10e3/ul Critically high 0.00-0.03 [facility] Comment on above: Performed By: #### C BC ####[facility] Vdrybulplg4785[address] [place], [place] [address]Dr. Farhat Leal IG % 1.1 % Critically high 0.0-0.5 [facility] Comment on above: Performed By: #### C BC ####[facility] Xksnqqcqox1318[address] [place], [place] [address]DrSkylar Farhat Leal LYMPH # 1.3 103/ul Normal 1.2-3.8 [facility] Comment on above: Performed By: #### C BC ####[facility] Buqabrpgaz7[address] [place], [place] [address]DrSkylar Farhat Leal Lymphocytes/100 WBC (Bld) 17.3 % Critically low 20.5-60.0 [facility] Comment on above: Performed By: #### C BC ####[facility] Gfauguzzql179[address] [place], [place] [address]Dr. Madelynlorri Leal MANUAL DIFF REQ NO Normal [facility] Comment on above: Performed By: #### C BC ####[facility] Ypcvvpkabu8811 [place] [address]Dr. Farhat Elvis MCH (RBC) [Entitic mass] 31.2 pg Normal 25.9-34.0 [facility] Comment on above: Performed By: #### C BC ####[facility] Vqoprbliyb[address] [place], [place] [address]Dr. Farhat Elvis MCHC (RBC) [Mass/Vol] 33.4 g/dL Normal 29.9-35.2 [facility] Comment on above: Performed By: #### C BC ####[facility] Fyxgbacssr3547[address] [place], [place] [address]Dr. Madelynolrri Leal MCV (RBC) [Entitic vol] 93.3 fL Normal 80.0-94.0 [facility] Comment on above: Performed By: #### C BC ####[facility] Tmxfkxkunu2287[address] [place], [place] [address]Dr. Farhat Leal MONO # 0.9 103/ul Critically high 0.3-0.8 [facility] Comment on above: Performed By: #### C BC ####[facility] Zntrmawjqi480[address] [place], [place] [address]Dr. Farhat Leal Monocytes/100 WBC (Bld) 12.4 % Critically high 1.7-12.0 [facility] Comment on above: Performed By: #### C BC ####[facility] Uigkmhoqtk[address] [place], [place] [address]DrSkylar Leal NEUT # 4.7 103/ul Normal 1.4-6.5 [facility] Comment on above: Performed By: #### C BC ####[facility] Eaapyqxmjs5838[address] [place], [place] [address]DrSkylar Leal Neutrophils/100 WBC (Bld) 65.3 % Normal 43.0-75.0 [facility] Comment on above: Performed By: #### C BC ####[facility] Iuxnlszgia401[address] [place], [place] [address]Dr. Farhat Leal Platelet mean volume (Bld) [Entitic vol] 9.9 fL Normal 9.5-13.5 [facility] Comment on above: Performed By: #### C BC ####[facility] Lvrkanoxge0491 [place] [address]Dr. Farhat Leal PLT 180 103/ul Normal 150-450 [facility] Comment on above: Performed By: #### C BC ####[facility] Aoloxmphyl8208 [place] [address]Dr. Farhat Leal RBC 4.30 106/ul Critically low 4.70-6.10 [facility] Comment on above: Performed By: #### C BC ####[facility] Hpcvrjrkzs9[address] [place], [place] [address]Dr. Farhat Leal WBC 7.2 103/ul Normal 4.0-11.0 [facility] Comment on above: Performed By: #### C BC ####[facility] Hyfgcwnikd5[address] [place], [place] [address]Dr. Farhat Elvis PTT HEPARIN MONITORon 2021 aPTT Coag (Bld) [Time] 26.7 s Critically low 39.5-54.2 [facility] Comment on above: Performed By: #### P TTHEP ####[facility] Qthlyhjacp3123 [place] [address]Dr. Farhat Elvis aPTT Coag (Bld) [Time] 121.0 s Critically high 39.5-54. 2 [facility] Comment on above: Performed By: #### P TTHEP ####[facility] Vlfrztfapw58[address] [place], [place] [address]Dr. Farhat Elvis aPTT Coag (Bld) [Time] 27.6 s Critically low 39.5-54.2 [facility] Comment on above: Performed By: #### P TTHEP ####[facility] Othnodelyk8097[address] [place], [place] [address]Dr. Farhat Elvis aPTT Coag (Bld) [Time] 139.0 s Critically high 39.5-54. 2 [facility] Comment on above: Performed By: #### P TTHEP ####[facility] Dbdfiqsesc7197 [place] [address]Dr. Farhat Leal CBC AUTO DIFFon 09-19-2021 BASO # 0.0 103/ul Normal 0.0-0.1 [facility] Comment on above: Performed By: #### C BC ####[facility] Qkctwnqutc[address] [place], [place] [address]Dr. Farhat Elvsi Basophils/100 WBC (Bld) 0.5 % Normal 0.2-2.0 [facility] Comment on above: Performed By: #### C BC ####[facility] Emvyzziocy16[address] [place], [place] [address]Dr. Farhat Elvis EO # 0.2 103/ul Normal 0.0-0.7 [facility] Comment on above: Performed By: #### C BC ####[facility] Aslnuywdjo[address] [place], [place] [address]Dr. Madelynlorri Leal Eosinophils/100 WBC (Bld) 2.6 % Normal 0.9-7.0 [facility] Comment on above: Performed By: #### C BC ####[facility] Fsplfpubhq[address] [place], [place] [address]Dr. Farhat Leal Erythrocyte distribution width (RBC) [Ratio] 12.5 % Normal 11.0-15.0 [facility] Comment on above: Performed By: #### C BC ####[facility] Ashjyjlzqg170[address] [place], [place] [address]Dr. Farhat Leal Hematocrit (Bld) [Volume fraction] 39.2 % Critically low 42.0-54.0 [facility] Comment on above: Performed By: #### C BC ####[facility] Adazlkfwiv[address] [place], [place] [address]Dr. Farhat Leal Hemoglobin (Bld) [Mass/Vol] 13.3 g/dL Critically low 14.0-18.0 [facility] Comment on above: Performed By: #### C BC ####[facility] Kbjthsfgyu048[address] [place], [place] [address]Dr. Farhat Leal IG # 0.08 10e3/ul Critically high 0.00-0.03 [facility] Comment on above: Performed By: #### C BC ####[facility] Tupwsuipva[address] [place] [address]DrSkylar Farhat Elvis IG % 0.9 % Critically high 0.0-0.[address] [facility] Comment on above: Performed By: #### C BC ####[facility] Llloqvpoij6079 [place] [address]DrSkylar Farhat Elvis LYMPH # 1.5 103/ul Normal 1.2-3.8 [facility] Comment on above: Performed By: #### C BC ####[facility] Fdwhkhkyno5029 [place] [address]DrSkylar Madelynlorri Leal Lymphocytes/100 WBC (Bld) 17.2 % Critically low 20.5-60.0 [facility] Comment on above: Performed By: #### C BC ####[facility] Ymawwpmopy75[address] [place], [place] [address]DrSkylar Madelynlorri Leal MANUAL DIFF REQ NO Normal [facility] Comment on above: Performed By: #### C BC ####[facility] Fbxqhocijv4055 [place] [address]Dr. Farhat Elvis MCH (RBC) [Entitic mass] 31.7 pg Normal 25.9-34.0 [facility] Comment on above: Performed By: #### C BC ####[facility] Rfkbgzvcqs7676 [place] [address]DrSkylar Farhat Elvis MCHC (RBC) [Mass/Vol] 33.9 g/dL Normal 29.9-35.2 [facility] Comment on above: Performed By: #### C BC ####[facility] Gbbbndhiwi6869 [place] [address]DrSkylar Leal MCV (RBC) [Entitic vol] 93.3 fL Normal 80.0-94.0 [facility] Comment on above: Performed By: #### C BC ####[facility] Iqxgbxdsxf[address] [place], [place] [address]DrSkylar Leal MONO # 1.2 103/ul Critically high 0.3-0.8 [facility] Comment on above: Performed By: #### C BC ####[facility] Hppqnnnziw20[address] [place] [address]Dr. Farhat Leal Monocytes/100 WBC (Bld) 13.7 % Critically high 1.7-12.0 [facility] Comment on above: Performed By: #### C BC ####[facility] Hbosbhoard1035 [place] [address]Dr. Farhat Leal NEUT # 5.5 103/ul Normal 1.4-6.5 [facility] Comment on above: Performed By: #### C BC ####[facility] Ocjehuwqss5028 [place] [address]Dr. Farhat Leal Neutrophils/100 WBC (Bld) 65.1 % Normal 43.0-75.0 [facility] Comment on above: Performed By: #### C BC ####[facility] Cnxtjnybxn5521 [place] [address]Dr. Farhat Leal Platelet mean volume (Bld) [Entitic vol] 9.6 fL Normal 9.5-13.5 [facility] Comment on above: Performed By: #### C BC ####[facility] Xlywkmghfa2981 [place] [address]Dr. Farhat Leal PLT 163 103/ul Normal 150-450 [facility] Comment on above: Performed By: #### C BC ####[facility] Klsudyepwf0819 [place] [address]Dr. Farhat Leal RBC 4.20 106/ul Critically low 4.70-6.10 [facility] Comment on above: Performed By: #### C BC ####[facility] Pkrx[address]azfu2374 [place] [id number]. Farhat Leal WBC 8.4 103/ul Normal 4.0-11.0 [facility] Comment on above: Performed By: #### C BC ####[facility] [address] [place] [id number]. Farhat Leal POINT OF CARE GLUCOSEon 08- Glucose [Mass/Vol] 300 mg/dL Critically high 74-106 T he [facility] Comment on above: Performed By: #### P OCGLUC ####[facility] [address]fq[address] [place], [place] [address]DrSkylar Leal POTASSIUMon 09-19-2021 Potassium [Moles/Vol] 4.9 mmol/L Normal 3.5-5.1 [facility] Comment on above: Performed By: #### K ####[facility] Weymljjiqe[address] [place], [place] [address]Dr. Farhat Leal PTT HEPARIN MONITORon 2021 aPTT Coag (Bld) [Time] 23.4 s Critically low 39.5-54.2 [facility] Comment on above: Result Comment: repe ated Performed By: #### P TTHEP ####[facility] Vjczehtvsc[address] [place], [place] [address]Dr. Farhat Leal aPTT Coag (Bld) [Time] 101.2 s Critically high 39.5-54. 2 [facility] Comment on above: Performed By: #### P TTHEP ####[facility] Ykwfvgqcwl[address] [place], [place] [address]Dr. Farhat Leal aPTT Coag (Bld) [Time] 81.0 s Critically high 39.5-54. 2 [facility] Comment on above: Result Comment: Test Repeated. Critical Value Verified Performed By: #### P TTHEP ####[facility] Xeyxveneah[address] [place], [place] [address]DrSkylar Leal CBC AUTO DIFFon 09-18-2021 BASO # 0.0 103/ul Normal 0.0-0.1 [facility] Comment on above: Performed By: #### C BC ####[facility] Qaiyetsfpe[address] [place], [place] [address]DrSkylar Leal Basophils/100 WBC (Bld) 0.4 % Normal 0.2-2.0 [facility] Comment on above: Performed By: #### C BC ####[facility] Ypfioykjfv[address] [place], [place] [address]DrSkylar Leal EO # 0.1 103/ul Normal 0.0-0.7 [facility] Comment on above: Performed By: #### C BC ####[facility] [address] [place] [address]Dr. Farhat Leal Eosinophils/100 WBC (Bld) 0.8 % Critically low 0.9-7.0 [facility] Comment on above: Performed By: #### C BC ####[facility] Rexpjhafhy24[address] [place], [place] [address]Dr. Farhat Leal Erythrocyte distribution width (RBC) [Ratio] 12.4 % Normal 11.0-15.0 [facility] Comment on above: Performed By: #### C BC ####[facility] Vmjhsvlaje[address]364[address] [place], [place] [address]Dr. Farhat Leal Hematocrit (Bld) [Volume fraction] 41.7 % Critically low 42.0-54.0 [facility] Comment on above: Performed By: #### C BC ####[facility] Xujwfwdhvj[address] [place], [place] [address]Dr. Farhat Leal Hemoglobin (Bld) [Mass/Vol] 14.1 g/dL Normal 14.0-18.0 [facility] Comment on above: Performed By: #### C BC ####[facility] Sgfpqoamjy[address] [place], [place] [address]Dr. Farhat Leal IG # 0.06 10e3/ul Critically high 0.00-0.03 The [facility] Comment on above: Performed By: #### C BC ####[facility] Ryvyqanyyj35[address] [place], [place] [address]Dr. Farhat Leal IG % 0.6 % Critically high 0.0-0.5 The [facility] Comment on above: Performed By: #### C BC ####[facility] Vfogezhohw[address] [place], [place] [address]DrSkylar Joshilorri Leal LYMPH # 0.6 103/ul Critically low 1.2-3.[address] [facility] Comment on above: Performed By: #### C BC ####[facility] Llqyeqyglw[address] [place], [place] [address]Dr. Farhat Leal Lymphocytes/100 WBC (Bld) 6.5 % Critically low 20.5-60.0 [facility] Comment on above: Performed By: #### C BC ####[facility] [address]ly[address] [place] [address]Dr. Farhat Leal MANUAL DIFF REQ NO Normal The [facility] Comment on above: Performed By: #### C BC ####[facility] J[address] [place] [address]Dr. Farhat Leal MCH (RBC) [Entitic mass] 31.6 pg Normal 25.9-34.0 [facility] Comment on above: Performed By: #### C BC ####[facility] Hhfpzwftsu[address] [place], [place] [address]Dr. Farhat Leal MCHC (RBC) [Mass/Vol] 33.8 g/dL Normal 29.9-35.2 [facility] Comment on above: Performed By: #### C BC ####[facility] Wykbpxgdkc4711[address] [place], [place] [address]Dr. Farhat Leal MCV (RBC) [Entitic vol] 93.5 fL Normal 80.0-94.0 [facility] Comment on above: Performed By: #### C BC ####[facility] Rdwamfcuvb4312[address] [place], [place] [address]Dr. Farhat Leal MONO # 1.0 103/ul Critically high 0.3-0.8 The [facility] Comment on above: Performed By: #### C BC ####[facility] Exhysmxujd8[address] [place], [place] [address]Dr. Farhat Leal Monocytes/100 WBC (Bld) 10.4 % Normal 1.7-12.0 [facility] Comment on above: Performed By: #### C BC ####[facility] Yefnmvevej0[address] [place], [place] [address]Dr. Farhat Leal NEUT # 7.8 103/ul Critically high 1.4-6.5 The [facility] Comment on above: Performed By: #### C BC ####[facility] Zlpybesupa[address] [place], [place] [address]Dr. Farhat Leal Neutrophils/100 WBC (Bld) 81.3 % Critically high 43.0-75.0 [facility] Comment on above: Performed By: #### C BC ####[facility] Jx[address]ufq[address] [place] [address]Dr. Farhat Leal Platelet mean volume (Bld) [Entitic vol] 9.9 fL Normal 9.5-13.5 [facility] Comment on above: Performed By: #### C BC ####[facility] [address] [place] [address]Dr. Farhat Leal PLT 169 103/ul Normal 150-450 [facility] Comment on above: Performed By: #### C BC ####[facility] Qp[address]jt[address] [place] [address]Dr. Farhat Leal RBC 4.46 106/ul Critically low 4.70-6.10 The [facility] Comment on above: Performed By: #### C BC ####[facility] Q[address]zc[address] [place] [address]Dr. Farhat Leal WBC 9.6 103/ul Normal 4.0-11.0 [facility] Comment on above: Performed By: #### C BC ####[facility] Gxf[address]uj[address] [place] [address]Dr. Farhat Leal BASO # 0.0 103/ul Normal 0.0-0.1 [facility] Comment on above: Performed By: #### C BC ####[facility] M[address]os[address]la[address] [place] [address]Dr. Farhat Leal Basophils/100 WBC (Bld) 0.4 % Normal 0.2-2.0 [facility] Comment on above: Performed By: #### C BC ####[facility] [address]kt[address] [place] [address]Dr. Farhat Leal EO # 0.1 103/ul Normal 0.0-0.7 [facility] Comment on above: Performed By: #### C BC ####[facility] Fuqwbzkazj[address] [place], [place] [address]Dr. Farhat Leal Eosinophils/100 WBC (Bld) 1.1 % Normal 0.9-7.0 [facility] Comment on above: Performed By: #### C BC ####[facility] [address] [place] [address]Dr. Farhat Leal Erythrocyte distribution width (RBC) [Ratio] 12.6 % Normal 11.0-15.0 [facility] Comment on above: Performed By: #### C BC ####[facility] [address]webmf[address] [place] [address]Dr. Farhat Leal Hematocrit (Bld) [Volume fraction] 40.8 % Critically low 42.0-54.0 [facility] Comment on above: Performed By: #### C BC ####[facility] Jyxxpysfmn[address] [place], [place] [address]Dr. Farhat Leal Hemoglobin (Bld) [Mass/Vol] 13.6 g/dL Critically low 14.0-18.0 [facility] Comment on above: Performed By: #### C BC ####[facility] Biobfatumo[address] [place], [place] [address]Dr. Farhat Leal IG # 0.08 10e3/ul Critically high 0.00-0.03 [facility] Comment on above: Performed By: #### C BC ####[facility] Tcoexypzsp[address] [place], [place] [address]Dr. Farhat Leal IG % 0.9 % Critically high 0.0-0.5 [facility] Comment on above: Performed By: #### C BC ####[facility] R[address]xfmdma[address] [place] [address]Dr. Farhat Leal LYMPH # 0.8 103/ul Critically low 1.2-3.[address] [facility] Comment on above: Performed By: #### C BC ####[facility] Tgpihqfnhp[address] [place], [place] [address]Dr. Farhat Leal Lymphocytes/100 WBC (Bld) 8.7 % Critically low 20.5-60.0 [facility] Comment on above: Performed By: #### C BC ####[facility] [address]qq[address] [place] [address]Dr. Farhat Elvis MANUAL DIFF REQ NO Normal The [facility] Comment on above: Performed By: #### C BC ####[facility] [address] [place] [address]Dr. Farhat Leal MCH (RBC) [Entitic mass] 31.6 pg Normal 25.9-34.0 [facility] Comment on above: Performed By: #### C BC ####[facility] Degcgawdfw[address] [place], [place] [address]Dr. Farhat Elvis MCHC (RBC) [Mass/Vol] 33.3 g/dL Normal 29.9-35.2 [facility] Comment on above: Performed By: #### C BC ####[facility] Cdurfkyckz13[address] [place], [place] [address]Dr. Farhat Elvis MCV (RBC) [Entitic vol] 94.9 fL Critically high 80.0-94.0 [facility] Comment on above: Performed By: #### C BC ####[facility] Nwdhpmsicp19[address] [place], [place] [address]Dr. Madelynlorri Leal MONO # 1.0 103/ul Critically high 0.3-0.8 The [facility] Comment on above: Performed By: #### C BC ####[facility] Pfms[address]qht[address] [place], [place] [address]Dr. Madelynlorri Leal Monocytes/100 WBC (Bld) 11.3 % Normal 1.7-12.0 [facility] Comment on above: Performed By: #### C BC ####[facility] Tekvx[address]pqt[address] [place] [address]Dr. Farhat Leal NEUT # 6.9 103/ul Critically high 1.4-6.5 [facility] Comment on above: Performed By: #### C BC ####[facility] Snznnaueld[address] [place], [place] [address]Dr. Farhat Leal Neutrophils/100 WBC (Bld) 77.6 % Critically high 43.0-75.0 [facility] Comment on above: Performed By: #### C BC ####[facility] [address]id[address]ib[address]25[address] [place], [place] [address]Hm. Farhat Leal Platelet mean volume (Bld) [Entitic vol] 9.7 fL Normal 9.5-13.5 [facility] Comment on above: Performed By: #### C BC ####[facility] [address] [place], [place] [address]Jf. Farhat Leal PLT 171 103/ul Normal 150-450 [facility] Comment on above: Performed By: #### C BC ####[facility] Gp[address]ctftym2885 [place], [place] [address]Em. Farhat Leal RBC 4.30 106/ul Critically low 4.70-6.10 [facility] Comment on above: Performed By: #### C BC ####[facility] [address]sxnsjjfy6[address] [place], [place] [address]Ee. Farhat Leal WBC 8.9 103/ul Normal 4.0-11.0 [facility] Comment on above: Performed By: #### C BC ####[facility] Lsmxjzskqm23[address] [place], [place] [address]Te. Farhat Leal [facility] ([facility]on SARS-CoV-2 (COVID-19) RNA JOSH+probe Ql (Unsp spec) Not detected Normal NOT DETECTED [facility] Comment on above: Result Comment: When diagnostic testing is negative, the possibility of a false negative should be considered inthe context of a patient's recent exposures and the presence of clinical signs and symptomsconsistent with SARS-CoV-2.This test is not yet approved or cleared by the [place] FDA. When there are no FDA-approved or cleared tests available, and other criteria are met, FDA can make tests available under an emergency access mechanism called an Emergency Use Authorization (EUA). The EUA for this test is supported by the [place] of Health and Human Service's declaration that circumstances exist to justify the emergency use of in vitro diagnostics for the detection and/or diagnosis of the virus that causes COVID-19. This EUA will remain in effect for the duration of the COVID-19 declaration justifying emergency of IVDs, unless it is terminated or revoked by the FDA (after which the test may no longer be used). Performed By: #### C VDTB ####[facility] [address] [place] [address]Dr. Farhta Leal PROF 14(COMP METB)on 022 Albumin [Mass/Vol] 2.6 g/dL Critically low 3.4-5.[address] [facility] Comment on above: Performed By: #### C MP ####[facility] Btvyxkihvc[address] [place] [address]Dr. Farhat Leal Albumin/Globulin [Mass ratio] 0.7 {ratio} Normal [facility] Comment on above: Performed By: #### C MP ####[facility] Ygoxch[address]ky[address] [place], [place] [address]Dr. Farhat Leal ALP [Catalytic activity/Vol] 88 U/L Normal 46-116 [facility] Comment on above: Performed By: #### C MP ####[facility] Mceajndduo[address] [place], [place] [address]Dr. Farhat Leal ALT [Catalytic activity/Vol] 15 U/L Critically low 16-63 [facility] Comment on above: Performed By: #### C MP ####[facility] Cilakrriuj[address] [place], [place] [address]Dr. Farhat Leal Anion gap [Moles/Vol] 11.7 mmol/L Normal Th [facility] Comment on above: Performed By: #### C MP ####[facility] Crecmpxwxi[address] [place], [place] [address]Dr. Farhat Leal AST [Catalytic activity/Vol] 25 U/L Normal 15-37 [facility] Comment on above: Performed By: #### C MP ####[facility] Zwxsgypvnq[address] [place], [place] [address]Dr. Farhat Leal Bilirubin [Mass/Vol] 0.6 mg/dL Normal 0.2-1.0 [facility] Comment on above: Performed By: #### C MP ####[facility] [address]ottbl[address] [place] [address]Dr. Farhat Leal Calcium [Mass/Vol] 8.9 mg/dL Normal 8.5-10.1 [facility] Comment on above: Performed By: #### C MP ####[facility] [address] [place] [id number]. Farhat Leal Chloride [Moles/Vol] 93 mmol/L Critically low 98-107 [facility] Comment on above: Performed By: #### C MP ####[facility] Aqev[address]wwit36[address] [place] [id number]. Farhat Leal CO2 [Moles/Vol] 28.9 mmol/L Normal 21.0-32.0 [facility] Comment on above: Performed By: #### C MP ####[facility] Hhmikywkfq8[address] [place] [address]Dr. Farhat Elvis Creatinine [Mass/Vol] 2.09 mg/dL Critically high 0.70-1.30 [facility] Comment on above: Performed By: #### C MP ####[facility] Viyqlwidan01[address] [place] [address]Dr. Farhat Elvis EGFR-AF KYRGYZ 38 mL/min/1.73m2 Critically low >=60 [facility] Comment on above: Performed By: #### C MP ####[facility] G[address]lenpjvg86[address] [place] [id number]. Farhat Elvis EGFR-NON AF KYRGYZ 31 mL/min/1.73m2 Critically low >=60 [facility] Comment on above: Performed By: #### C MP ####[facility] Qqlcmuvndq03[address] [place] [address]Dr. Farhat Elvis Globulin (S) [Mass/Vol] 3.7 g/dL Normal [facility] Comment on above: Performed By: #### C MP ####[facility] Symgulzwkp1884 [place] [phone]. Farhat Leal Glucose [Mass/Vol] 214 mg/dL Critically high 74-106 T [facility] Comment on above: Performed By: #### C MP ####[facility] Ohuszxncfg3[address] [place] [phone]. Farhat Leal Potassium [Moles/Vol] 5.6 mmol/L Critically high 3.5-5.1 [facility] Comment on above: Performed By: #### C MP ####[facility] Avowvtyljs7[address] [place] [address]Dr. Farhat Leal Protein [Mass/Vol] 6.3 g/dL Critically low 6.4-8.2 Th [facility] Comment on above: Performed By: #### C MP ####[facility] Najvqyfuox48[address] [place] [address]Dr. Farhat Leal Sodium [Moles/Vol] 128 mmol/L Critically low 136-145 Th [facility] Comment on above: Performed By: #### C MP ####[facility] Kteynxdhww4[address] [place] [address]Dr. Farhat Leal Urea nitrogen [Mass/Vol] 65.0 mg/dL Critically high 7.0-18.0 [facility] Comment on above: Performed By: #### C MP ####[facility] Tgabrbwtrd[address] [place], [place] [address]Dr. Farhat Leal Urea nitrogen/Creatinine [Mass ratio] 31.1 mg/mg Normal [facility] Comment on above: Performed By: #### C MP ####[facility] Vlyivyatbj[address] [place], [place] [address]Dr. Farhat Leal Albumin [Mass/Vol] 2.5 g/dL Critically low 3.4-5.0 Th [facility] Comment on above: Performed By: #### T MYRIAM, CMP ####[facility] Yfrlfiwycn[address] [place], [place] [address]Dr. Farhat Leal Albumin/Globulin [Mass ratio] 0.7 {ratio} Normal [facility] Comment on above: Performed By: #### T SH, CMP ####[facility] Jrsgvossok[address] [place], [place] [address]Dr. Farhat Leal ALP [Catalytic activity/Vol] 83 U/L Normal 46-116 [facility] Comment on above: Performed By: #### T SH, CMP ####[facility] Mrjifagjor[address] [place], [place] [address]Dr. Farhat Leal ALT [Catalytic activity/Vol] 16 U/L Normal 16-63 [facility] Comment on above: Performed By: #### T SH, CMP ####[facility] Aavnmayiob60[address] [place], [place] [address]Dr. Farhat Leal Anion gap [Moles/Vol] 9.7 mmol/L Normal [facility] Comment on above: Performed By: #### T SH, CMP ####[facility] Phgyqgrfkr8935[address] [place], [place] [address]Dr. Farhat Leal AST [Catalytic activity/Vol] 27 U/L Normal 15-37 [facility] Comment on above: Performed By: #### T SH, CMP ####[facility] Nfpirlltqj85[address] [place], [place] [address]Dr. Farhat Elvis Bilirubin [Mass/Vol] 0.5 mg/dL Normal 0.2-1.0 [facility] Comment on above: Performed By: #### T MYRIAM, CMP ####[facility] Dvnwsivdfj45[address] [place], [place] [address]Dr. Farhat Leal Calcium [Mass/Vol] 8.8 mg/dL Normal 8.5-10.1 [facility] Comment on above: Performed By: #### T MYRIAM, CMP ####[facility] Ynunhhqqec14[address] [place], [place] [address]Dr. Farhat Elvis Chloride [Moles/Vol] 95 mmol/L Critically low 98-107 [facility] Comment on above: Performed By: #### T MYRIAM, CMP ####[facility] Hxaxqlyhka11[address] [place], [place] [address]Dr. Farhat Leal CO2 [Moles/Vol] 30.5 mmol/L Normal 21.0-32.0 [facility] Comment on above: Performed By: #### T SH, CMP ####[facility] Qiynzvrsby27[address] [place], [place] [address]Dr. Farhat Elvis Creatinine [Mass/Vol] 2.18 mg/dL Critically high 0.70-1.30 [facility] Comment on above: Performed By: #### T SH, CMP ####[facility] Rukwdzeuoq[address] [place], [place] [address]Dr. Farhat Leal EGFR-AF KYRGYZ 36 mL/min/1.73m2 Critically low >=60 [facility] Comment on above: Performed By: #### T MYRIAM, CMP ####[facility] Wprkvjjbdo[address] [place], [place] [address]Dr. Farhat Leal EGFR-NON AF KYRGYZ 30 mL/min/1.73m2 Critically low >=60 [facility] Comment on above: Performed By: #### T MYRIAM, CMP ####[facility] Jckmnensuc94[address] [place], [place] [address]Dr. Farhat Leal Globulin (S) [Mass/Vol] 3.5 g/dL Normal [facility] Comment on above: Performed By: #### T MYRIAM, CMP ####[facility] Ufgcnwdmma[address] [place], [place] [address]Dr. Farhat Leal Glucose [Mass/Vol] 141 mg/dL Critically high 74-106 T [facility] Comment on above: Performed By: #### T MYRIAM, CMP ####[facility] Tbuynpnhxt[address] [place], [place] [address]Dr. Farhat Leal Potassium [Moles/Vol] 5.2 mmol/L Critically high 3.5-5.1 [facility] Comment on above: Performed By: #### T MYRIAM, CMP ####[facility] Lytiblyuun6[address] [place], [place] [address]Dr. Farhat Leal Protein [Mass/Vol] 6.0 g/dL Critically low 6.4-8.2 [facility] Comment on above: Performed By: #### T MYRIAM, CMP ####[facility] Odfxhgmxuq[address] [place], [place] [address]Dr. Farhat Leal Sodium [Moles/Vol] 130 mmol/L Critically low 136-145 Th [facility] Comment on above: Performed By: #### T MYRIAM, CMP ####[facility] Weypcnbrnu[address] [place], [place] [address]Dr. Farhat Leal Urea nitrogen [Mass/Vol] 63.0 mg/dL Critically high 7.0-18.0 [facility] Comment on above: Performed By: #### T MYRIAM, CMP ####[facility] Ymalsdvvsh[address]74 [place] [address]Dr. Farhat Leal Urea nitrogen/Creatinine [Mass ratio] 28.9 mg/mg Normal [facility] Comment on above: Performed By: #### T SH, CMP ####[facility] Wslnwbukqe3[address] [place] [address]Dr. Farhat Leal PROTIMEon 09-18-2021 INR Coag (PPP) [Relative time] 1.06 {INR} Normal [facility] Comment on above: Performed By: #### P T, PTT ####[facility] Fhdasvarar[address] [place] [address]Dr. Farhat Leal INR GUIDELINES SEE BELOW Normal [facility] Comment on above: Result Comment: MALINA RED INR: 2.0 - 3.0 CONDITIONS NOT LISTED BELOW 2.5 - 3.5 FOR PROSTHETIC HEART VALVE REPLACEMENT 2.5 - 3.5 RECURRENT THROMBOSIS Performed By: #### P T, PTT ####[facility] Ittkgbpqyp[address] [place], [place] [address]Dr. Farhat Leal PT Coag (PPP) [Time] 11.4 s Normal 9.0-11.6 [facility] Comment on above: Performed By: #### P T, PTT ####[facility] [address]qpmartrzy[address] [place], [place] [address]Dr. Farhat Leal PTTon 09-18-2021 aPTT Coag (Bld) [Time] 27.9 s Normal 22.3-36.[address] [facility] Comment on above: Performed By: #### P T, PTT ####[facility] Kqoiafifwo[address] [place], [place] [address]Dr. Farhat Leal TSHon 09-18-2021 TSH 7.099 uIU/mL Critically high 0.358-3.740 [facility] Comment on above: Performed By: #### T , CMP ####[facility] Qfsykcadeg[address] [place], [place] [address]Dr. Farhat Leal US SALOME DOP LEG RTon 09-19-19 US SALOME DOP LEG RT Normal [facility] XR CHEST 1 Von 09-18-2021 XR CHEST 1 V Normal [facility] XR HIP RT 2 3V W PELVISon XR HIP RT 2 3V W PELVIS Normal [facility] Vital Signs Date Time Vital Sign Value Performing Clinician Facility 07-20-2022 13:35-0400 Body temperature 97.4 [degF] DO Devon Ball Work Phone: [facility] 07-20-2022 13:35-0400 Diastolic blood pressure 50 mm[Hg] DO Devon Ball Work Phone: [facility] 07-20-2022 13:35-0400 Heart rate 67 /min DO Devon Ball Work Phone: [facility] 07-20-2022 13:35-0400 Respiratory rate 20 /min DO Devon Ball Work Phone: [facility] 07-20-2022 13:35-0400 Systolic blood pressure 98 mm[Hg] DO Devon Ball Work Phone: [facility] 06-29-2022 14:46-0400 Body height 193.04 cm DO Devon Ball Work Phone: [facility] 02-26-2022 13:11-0500 Body temperature 96.6 [degF] Hina Peterson MD Work Phone: [facility] 02-26-2022 13:11-0500 Diastolic blood pressure 75 mm[Hg] Hina Peterson MD Work Phone: [facility] 02-26-2022 13:11-0500 Heart rate 75 /min Hina Peterson MD Work Phone: [facility] 02-26-2022 13:11-0500 Systolic blood pressure 88 mm[Hg] Hina Peterson MD Work Phone: [facility] 02-05-2022 08:29-0500 Body temperature 96.69 [degF] [facility] Work Phone: [facility] 02-05-2022 08:29-0500 Diastolic blood pressure 42 mm[Hg] [facility] Work Phone: [facility] 02-05-2022 08:29-0500 Heart rate 79 /min [facility] Work Phone: [facility] 02-05-2022 08:29-0500 SaO2% (BldA) [Mass fraction] 100 % [facility] Work Phone: [facility] 02-05-2022 08:29-0500 Systolic blood pressure 72 mm[Hg] [facility] Work Phone: [facility] 01-12-2022 11:00-0500 Diastolic blood pressure 54 mm[Hg] Alissa Major DENTAL EQUIPMENT REPAIRER.INSULATION MANAGER Work Phone: [facility] 01-12-2022 11:00-0500 Heart rate 88 /min Alissa Major DENTAL EQUIPMENT REPAIRER.INSULATION MANAGER Work Phone: [facility] 01-12-2022 11:00-0500 SaO2% (BldA) [Mass fraction] 93 % Alissa Major DENTAL EQUIPMENT REPAIRER.INSULATION MANAGER Work Phone: [facility] 01-12-2022 11:00-0500 Systolic blood pressure 96 mm[Hg] Alissa Major DENTAL EQUIPMENT REPAIRER.INSULATION MANAGER Work Phone: [facility] 01-12-2022 10:12-0500 Body temperature 97.9 [degF] Alissa Major DENTAL EQUIPMENT REPAIRER.INSULATION MANAGER Work Phone: [facility] 01-12-2022 10:12-0500 Respiratory rate 18 /min Alissa Major DENTAL EQUIPMENT REPAIRER.INSULATION MANAGER Work Phone: [facility] 11-17-2021 15:59-0400 Body height 193 cm No Reeder DO Work Phone: [facility] 11-17-2021 15:59-0400 Body weight 111.58 kg No Reeder DO Work Phone: [facility] 11-17-2021 15:59-0400 Diastolic blood pressure 59 mm[Hg] No Reeder DO Work Phone: [facility] 11-17-2021 15:59-0400 Heart rate 86 /min No Reeder DO Work Phone: [facility] 11-17-2021 15:59-0400 SaO2% (BldA) [Mass fraction] 97 % No Reeder DO Work Phone: [facility] 11-17-2021 15:59-0400 Systolic blood pressure 104 mm[Hg] No Reeder DO Work Phone: [facility] Encounters Encounter Date Encounter Type Care Provider Facility Start: 01-14-2023 End: 01-14-2023 ambulatory Devon Moreira Other [facility] Other Start: 01-14-2023 Sbsq nursing facil c are/day minor complj 15 min [facility] Start: 12-10-2022 End: 12-10-2022 ambulatory Devon Moreira Other [facility] Other Start: 12-10-2022 Sbsq nursing facil c are/day minor complj 15 min [facility] Start: 11-12-2022 End: 11-12-2022 ambulatory Devon Moreira Other [facility] Other Start: 11-12-2022 Sbsq nursing facil c are/day minor complj 15 min [facility] Start: 10-16-2022 Refill Asia Pike MD Work Phone: [facility] Comment on above: Med Change Request Start: 10-12-2022 End: 10-12-2022 ambulatory Devon Moreira Other [facility] Other Start: 10-12-2022 Telephone encounter Devon Moreira [facility] Start: 10-08-2022 End: 10-08-2022 ambulatory Devon Moreira Other [facility] Other Start: 10-08-2022 Sbsq nursing facil c are/day new problem 25 min [facility] Start: 09-22-2022 Refill Ariadna [facility]cd[facility] Comment on above: Rx Refills Start: 09-10-2022 End: 09-10-2022 ambulatory Devon Moreira Other [facility] Other Start: 09-10-2022 Sbsq nursing facil c are/day new problem 25 min Devon Moreira [facility] Start: 09-09-2022 End: 09-09-2022 ambulatory [facility] Start: 08-06-2022 End: 08-06-2022 ambulatory Devon Moreira Other [facility] Other Start: 08-06-2022 Sbsq nursing facil c are/day new problem 25 min Devon Moreira [facility] Start: 07-22-2022 End: 07-22-2022 ambulatory Devon Moreira Other [facility] Other Start: 07-22-2022 Telephone encounter [facility] Start: 07-20-2022 End: 07-20-2022 ambulatory Sadia Luisey Facility:[facility] Start: 07-20-2022 End: 07-20-2022 ambulatory DO Devon Moreira Work Phone: [facility] Work Phone: Start: 07-20-2022 End: 07-20-2022 Discharged Recurring DO Devon Moreira Work Phone: [facility] Work Phone: Start: 07-13-2022 End: 07-13-[address] DEVON MOREIRA Facility:[facility] Start: 07-10-2022 End: 07-10-[address] DEVON MOREIRA Facility:[facility] Start: 07-03-2022 End: 07-03-[address] DEVON MOREIRA Facility:[facility] Start: 06-26-2022 End: 06-26-[address] DEVON MOREIRA Facility:[facility] Start: 06-26-2022 End: 06-26-[address] DEVON MOREIRA Facility:[facility] Start: 06-25-2022 End: 06-25-2022 ambulatory Devon Moreira Other [facility] Other Start: 06-25-2022 Sbsq nursing facil c are/day minor complj 15 min Devon Moreira [facility] Start: 06-19-2022 End: 06-19-[address] DEVON MOREIRA Facility:[facility] Start: 06-15-2022 End: 07-15-2022 ambulatory SHAIKH Kate MURRAY Facility:[facility] Start: 06-12-2022 End: 06-12-[address] DOCTOR WALSH Facility:[facility] Start: 06-05-2022 Sbsq nursing facil c are/day new problem 25 min Devon Moreira [facility] Start: 06-05-2022 End: 06-05-[address] DEVON MOREIRA [facility] Other Start: 05-29-2022 End: 05-29-[address] DEVON MOREIRA Facility:[facility] Start: 05-22-2022 End: 05-22-[address] DEVON MOREIRA Facility:[facility] Start: 05-20-2022 End: 05-20-[address] DEVON MOREIRA Facility:[facility] Start: 05-18-2022 End: 06-12-2022 ambulatory SHAIKH Kate MURRAY Facility:[facility] Start: 05-15-2022 End: 05-15-[address] DEVON MOREIRA Facility:[facility] Start: 05-13-2022 End: 05-13-2022 ambulatory Van Olivarez APRN.INSULATION MANAGER Work Phone: [facility] Comment on above: results Start: 05-13-2022 E-mail encounter fro m caregiver Van Olivarez APRN.INSULATION MANAGER Work Phone: [facility] Start: 05-08-2022 End: 05-08-[address] DEVON MOREIRA Facility:[facility] Start: 05-07-2022 End: 05-07-2022 ambulatory Devon Moreira Other [facility] Other Start: 05-07-2022 Sbsq nursing facil c are/day new problem 25 min Devon Moreira [facility] Start: 05-06-2022 End: 05-06-[address] DEVON MOREIRA Facility:[facility] Start: 05-01-2022 End: 05-01-[address] DEVON MOREIRA Facility:[facility] Start: 04-28-2022 ambulatory SHAIKH Kate MURRAY Facilit y:[facility] Start: 04-24-2022 End: 04-24-[address] JACOBO MONZON . Facility:[facility] Start: 04-17-2022 End: 04-17-[address] DEVON MOREIRA Facility:[facility] Start: 04-15-2022 End: 04-16-[address] DEVON MOREIRA Facility:[facility] Start: 04-15-2022 End: 04-15-[address] DEVON MOREIRA Facility:[facility] Start: 04-13-2022 End: 04-13-[address] DEVON MOREIRA Facility:[facility] Start: 04-02-2022 ambulatory Van cortes APRN.CNP Work Phone: [facility] Start: 04-01-2022 End: 04-01-[address] DEVON MOREIRA Facility:[facility] Start: 03-22-2022 Refill Asia Pike MD Work Phone: [facility] Comment on above: Med Change Request Start: 03-21-2022 ambulatory SHAIKH Kate MURRAY Facilit y:[facility] Start: 03-11-2022 End: 03-11-[address] DEVON MOREIRA Facility:[facility] Start: 03-10-2022 End: 03-10-2022 ambulatory [facility] Start: 02-27-2022 Refill Samira Serna [facility] Comment on above: Rx Refills Start: 02-26-2022 End: 02-26-2022 ambulatory DEVON MOREIRA Facility:[facility] Start: 02-26-2022 End: 02-26-2022 Patient encounter procedure Hina Peterson MD Work Phone: Vascular Surg Dept Comment on above: Hx of BKA, right (HC C) (Primary Dx); PAD (peripheral artery disease) ([facility]); Mixed hyperlipidemia due to type 2 diabetes mellitus ([facility]); Type II or unspecified type diabetes mellitus with renal manifestations, uncontrolled(250.42); Type 2 diabetes mellitus with diabetic neuropathy, with long-term current use of insulin (HCC); Type 2 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, with long-term current use of insulin (HCC); Paroxysmal atrial fibrillation (HCC) Start: 02-25-2022 End: 02-25-2022 ambulatory ARTUR LINDSEY Facility:[facility] Start: 02-25-2022 End: 03-17-2022 ambulatory SHAIKH Kate MURRAY Facility:[facility] Start: 02-19-2022 Telephone encounter [facility] Comment on above: Results (Tacro 23.9) Start: 02-18-2022 Telephone encounter Devon Moreira DO Work Phone: [facility] Comment on above: Appointment Refill Request Start: 02-05-2022 End: 02-06-[address] DEVON MOREIRA Facility:[facility] Start: 02-05-2022 End: 02-06-2022 ambulatory ARTUR CHEN Facility:[facility] Start: 02-05-2022 End: 02-05-2022 Patient encounter procedure [facility] Work Phone: [facility] Comment on above: Kidney replaced by t ransplant (Primary Dx); 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; intermediate current use of immunosuppressive drug Start: 01-26-2022 End: 01-26-[address] DEVON MOREIRA Facility:[facility] Start: 01-20-2022 Telephone encounter Van Olivarez APRN.CNP Work Phone: [facility] Comment on above: Results Start: 01-19-2022 End: 01-19-[address] DEVON MOREIRA Facility:[facility] Start: 01-16-2022 ambulatory SHAIKH Kate MURRAY Facilit y:[facility] Start: 01-12-2022 End: 01-12-2022 Subsequent hospital visit by physician Alissa Chavira APRN.INSULATION MANAGER Work Phone: [facility] Comment on above: ILIANA (acute kidney in jury) (HCC) [N17.9] Start: 12-30-2021 End: 12-30-2021 ambulatory Paresh Fonseca MD Work Phone: Infectious Disease Comment on above: MRSA bacteremia (Arabella munira Dx); Diabetic foot ulcer with osteomyelitis (HCC) Start: 12-30-2021 End: 12-30-2021 Telemedicine consultation with patient Paresh Fonseca MD Work Phone: [facility] Start: 12-29-2021 End: 12-29-[address] DEVON MOREIRA Facility:[facility] Start: 12-25-2021 End: 12-26-[address] DEVON MOREIRA Facility:[facility] Start: 12-20-2021 End: 12-20-[address] DEVON MOREIRA Facility:[facility] Start: 12-16-2021 End: 01-14-2022 ambulatory SHAIKH Kate MURRAY Facility:[facility] Start: 12-16-2021 Telephone encounter Hina shepard MD Work Phone: Vascular Surg Dept Comment on above: Orders Start: 12-15-2021 Telephone encounter Paresh Fonseca MD Work Phone: Infectious Disease Comment on above: Medication Question Start: 12-14-2021 End: 12-14-[address] DEVON MOREIRA Facility:[facility] Start: 12-12-2021 ambulatory Paresh Fonseca MD Work Phone: Infectious Disease Comment on above: [facility] Start: 12-08-2021 Orders Only Artur Burger ry DENTAL EQUIPMENT REPAIRER.INSULATION MANAGER Work Phone: [facility] Comment on above: Kidney replaced by t ransplant (Primary Dx) Start: 12-07-2021 ambulatory Paresh Fonseca MD Work Phone: [facility] Comment on above: [facility] Start (copat s top 12/27/21) Start: 12-05-2021 Telephone encounter Paresh Fonseca MD Work Phone: Infectious Disease Comment on above: Patient Update (evus held discussion/) Start: 12-01-2021 Follow-up encounter [facility] Provider [facility] Start: 12-01-2021 Patient encounter procedure [facility] Prov ider [facility] Department Start: 11-23-2021 End: 11-28-2021 Evaluation and management of inpatient SHAIKH Kate MURRAY Facility:[facility]1 Start: 11-18-2021 End: 12-16-2021 ambulatory SHAIKH Kate MURRAY Facility:[facility] Start: 11-17-2021 End: 11-17-2021 Patient encounter procedure No Reeder DO Work Phone: Vascular Medicine Comment on above: Acute deep vein thro mbosis (DVT) of proximal end of right lower extremity (HCC) (Primary Dx); PAD (peripheral artery disease) (HCC); Nonhealing ulcer of heel (HCC); Anticoagulation management encounter Start: 11-14-2021 End: 11-15-2021 ambulatory [facility] Facility:[facility] Start: 10-24-2021 End: 11-15-2021 ambulatory SHAIKH Kate MERCEDESSYLVIA Facility:[facility] Start: 10-22-2021 End: 10-23-2021 ambulatory [facility] Facility:[facility] Start: 10-06-2021 ambulatory Van cortes DENTAL EQUIPMENT REPAIRER.INSULATION MANAGER Work Phone: [facility] Start: 09-30-2021 Refamauri Pike MD Work Phone: [facility] Comment on above: Refill Request Start: 09-19-2021 End: 09-24-2021 Evaluation and management of inpatient DR PROSPER LEES Facility:[facility]1 Start: 09-18-2021 End: 09-19-[address] DEVON MOREIRA Facility:[facility] Start: 07-11-2021 Refamauri Pike MD Work Phone: [facility] Comment on above: Refill Request Start: 06-05-2021 Telephone encounter Van Olivarez DENTAL EQUIPMENT REPAIRER.INSULATION MANAGER Work Phone: [facility] Comment on above: Results Start: 02-05-2021 End: 02-13-2021 ambulatory UNKNOWN PROVIDER Facility:[facility] Procedures Date Procedure Procedure Detail Performing Clinician Start: 02-05-2022 Creatinine other source Asia Pike MD Work Phone: Start: 02-05-2022 Urnls dip stick/tabl et rgnt auto w/o microscopy Asia Pike MD Work Phone: Start: 01-12-2022 Prothrombin time Alissa Chavira DENTAL EQUIPMENT REPAIRER.INSULATION MANAGER Work Phone: Start: 12-01-2021 PACEMAKER CLINIC CHECK [facility] Provider Start: 11-29-2021 Microscopic examinat ion of blood, culture DR PROSPER LEES Comment on above: Performed By: #### B [id number] ####[facility] [id number] [place], [place] [id number] Leal Start: 11-27-2021 Insertion of Infusio n Device into Right Basilic Vein, Percutaneous Approach DR PROSPER LEES Start: 11-24-2021 Excision of Right Fo ot Subcutaneous Tissue and Fascia, Open Approach DR PROSPER LEES Start: 11-24-2021 Excision of Right Tarsal, Open Approach DR PROSPER LEES Start: 11-24-2021 Resection of Right L ower Leg Tendon, Open Approach DR PROSPER LEES Start: 09-07-2003 History of renal transplant KIDNEY TRANSPLANT STATUS Van Olivarez DENTAL EQUIPMENT REPAIRER.INSULATION MANAGER Work Phone: History of renal transplant Kidney replaced by transplant Artur Chen DENTAL EQUIPMENT REPAIRER.INSULATION MANAGER Work Phone: History of renal transplant [facility]ney replaced [facility] transplant [facility] Work Phone: History of renal transplant Devon Moreira Other History of renal transplant Kidney replaced by transplant Asia Pike MD Work Phone: Plan of Treatment Date Care Activity Detail Author Start: 02-26-2023 BP CONTROLLED (<130/80) BP CONTROLLE D (<130/80) [facility] Start: 02-05-2023 BP CONTROLLED (<130/80) BP CONTROLLE D (<130/80) [facility] Start: 01-12-2023 BP CONTROLLED (<130/80) BP CONTROLLE D (<130/80) [facility] Start: 11-17-2022 BP CONTROLLED (<130/80) BP CONTROLLE D (<130/80) [facility] Start: 10-16-2022 Influenza vaccination C [facility] Start: 04-08-2022 BP CONTROLLED (<130/80) BP CONTROLLE D (<130/80) [facility] Start: 02-15-2022 ADVANCE DIRECTIVE DISCUSSION ADVANCE DIRECTIVE DISCUSSION [facility] Start: 02-15-2022 DEPRESSION ASSESSMENT DEPRESSION ASS ESSMENT [facility] Start: 02-05-2022 COVID-19 VACCINE (5 - Yung risk series) COVID-19 VACCINE (5 - Yung risk series) [facility] Start: 11-27-2021 COVID-19 VACCINE (4 - Booster for Yung series) COVID-19 VACCINE (4 - Booster for Yung series) [facility] Start: 11-04-2021 Hemoglobin A1c/Hemoglobin.total in Blood HBA1C [facility] Start: 10-16-2021 [facility] Start: 03-26-2021 COVID-19 VACCINE (3 - Yung risk 3-dose series) COVID-19 VACCINE (3 - Yung risk 3-dose series) [facility] Start: 03-26-2021 COVID-19 VACCINE (3 - Yung risk series) COVID-19 VACCINE (3 - Yung risk series) [facility] Start: 02-15-2021 ADVANCE DIRECTIVE DISCUSSION ADVANCE DIRECTIVE DISCUSSION [facility] Start: 02-15-2021 DEPRESSION ASSESSMENT DEPRESSION ASS ESSMENT [facility] Start: 01-05-2016 Hepatitis B screening URINE AL BUMIN:CREATININE RATIO [facility] Start: 04-06-2015 Hemoglobin A1c/Hemoglobin.total in Blood HBA1C [facility] Start: 11-22-2010 Hepatitis B surface antibody level LDL CHOLESTEROL [facility] Start: 2009 ADULT PREVNAR-13 ADULT PREVNAR-13 Cl [facility] Start: 2009 PNEUMOVAX AGE 65 AND OVER WITH 5YR LOOKBACK (#1) PNEUMOVAX AGE 65 AND OVER WITH 5YR LOOKBACK (#1) [facility] Start: 1994 SHINGRIX VACCINE (1 of 2) SHINGRIX VACCINE (1 of 2) [facility] Start: 10-18-1963 HEPATITIS A (1 of 2 - Risk 2-dose series) HEPATITIS A (1 of 2 - Risk 2-dose series) [facility] Start: 10-18-1963 Hepatitis A Vaccine (1 of 2 - Risk 2-dose series) Hepatitis A Vaccine (1 of 2 - Risk 2-dose series) [facility] Start: 10-18-1963 SHINGRIX VACCINE (1 of 2) SHINGRIX VACCINE (1 of 2) [facility] Start: 10-18-1963 Urine microalbumin profile [facility] Start: 1962 ANNUAL PCP TEAM SUPERVISOR PARTIAL DENTURE DEPARTMENT MATTHEW DISEASE VISIT ANNUAL PCP TEAM CHRONIC DISEASE VISIT [facility] Start: 1956 Adult depression screening assessment DEPRESSION SCREENING [facility] Start: 1954 3 comp foot exam completed DIABETIC FOOT EXAM [facility] Start: 1954 Hepatitis C antibody , confirmatory test DILATED RETINAL EXAM [facility] Start: 1950 Pneumococcal Vaccine : 65+ (1 - PCV) Pneumococcal Vaccine: 65+ (1 - PCV) [facility] Start: 1950 PNEUMOCOCCAL: 65+ (1 - PCV) PNEUMOCOCCAL: 65+ (1 - PCV) [facility] Start: 1945 HEPATITIS A (1 of 2 - Risk 2-dose series) HEPATITIS A (1 of 2 - Risk 2-dose series) [facility] URINALYSIS, REFLEX MICROSCOPIC URINALYSIS, REFLEX MICROSCOPIC Lab Routine Screening for genitourinary condition Ordered: 10/06/2021 [facility] Work Phone: Comment on above: Ordered: 10/06/2021 URINALYSIS, REFLEX MICROSCOPIC URINALYSIS, REFLEX MICROSCOPIC Lab Routine Screening for genitourinary condition Ordered: 04/02/2022 [facility] Work Phone: Comment on above: Ordered: 04/02/2022 End: 11-17-2022 US LEG ARTERIAL PERIPH UNL VAS LAB US LEG ARTERIAL PERIPH UNL VAS LAB Vascular Lab Routine PAD (peripheral artery disease) (HCC) Nonhealing ulcer of heel (HCC) 1 Occurrences starting 11/17/2021 until 11/17/2022 [facility] Work Phone: Comment on above: 1 Occurrences starti ng 11/17/2021 until 11/17/2022 End: 11-17-2022 US LEG VEIN DVT UNL VAS LAB US LEG VEIN DVT UNL VAS LAB Vascular Lab Routine Acute deep vein thrombosis (DVT) of proximal end of right lower extremity (HCC) 1 Occurrences starting 11/17/2021 until 11/17/2022 [facility] Work Phone: Comment on above: 1 Occurrences starti ng 11/17/2021 until 11/17/2022 [facility] Immunizations Immunization Date Immunization Notes Care Provider Mercedes gonzalez 12-11-2021 COVID-19 booster vaccine, age 12+ yr, bivalent (PFIZER-BIONTECH) Paresh Fonseca MD Work Phone: [facility] 12-11-2021 influenza, high-dose , quadrivalent vaccine (FLUZONE HIGH DOSE QUADRIVALENT) Paresh Fonseca MD Work Phone: [facility] 12-11-2021 influenza virus vaccine, unspecified formulation [facility] 03-09-2011 influenza virus vaccine, unspecified formulation Van Olivarez DENTAL EQUIPMENT REPAIRER.[facility] Work Phone: [facility] 12-17-2007 influenza virus vaccine, unspecified formulation Van Lard DENTAL EQUIPMENT REPAIRER.[facility] Work Phone: [facility] Work Phone: 02-11-2006 influenza virus vaccine, unspecified formulation Van Lard DENTAL EQUIPMENT REPAIRER.[facility] Work Phone: [facility] Work Phone: 12-07-2003 influenza virus vaccine, unspecified formulation Van Lard DENTAL EQUIPMENT REPAIRER.[facility] Work Phone: [facility] Work Phone: 12-07-2003 pneumococcal polysaccharide vaccine, 23 valent Van Olivarez DENTAL EQUIPMENT REPAIRER.[facility] Work Phone: [facility] Work Phone: NEGATED: Highlighted row has not occurred!12-10-2021 COVID-19 booster vaccine, age 12+ yr, bivalent (PFIZER-BIONTECH) Paresh Fonseca MD Work Phone: [facility] NEGATED: Highlighted row has not occurred!12-10-2021 influenza, high-dose, quadrivalent vaccine (FLUZONE HIGH DOSE QUADRIVALENT) Paresh Fonseca MD Work Phone: [facility] Payers Date Payer Category Payer Medicare MEDICARE MEDICAR E A AND B [id number] 2009-Present [phone] [place] [address] Medicare [id number] 2009 Medicare MEDICARE MEDICAR E A AND B [id number] 2009-Present [phone] [place] [address] Medicare [id number] 2009 Unknown [employer] [employer] [employer]IC[employer] SUPPLEMENT [id number] 2009-Present [phone] [id number] [employer] [place] [address] Indemnity [id number] 2009 Unknown [employer] [employer] MEDIC[employer] SUPPLEMENT [id number] 2009-Present [phone] [address] [place] [address] Indemnity [id number] 2009 Unknown [id number] 2.16.8 [id number] 2009 Unknown [id number] 1959 Medicare [id number] 1959 Self-pay 1944 Unknown [id number] 2.16.840.1.122264.3.579.2.732 1944 Unknown [id number] 2.16.840.1.198636.3.579.2.593 1944 Unknown [id number] 2.16.840.1.888315.3.579.2.593 1944 Unknown [id number] 2.16.840.1.594861.3.579.2.593 1944 Unknown [id number] 2.16.840.1.449269.3.579.2.593 1944 Unknown [id number] 2.16.840.1.722950.3.579.2.593 1944 Unknown [id number] 2.16.840.1.474764.3.579.2.593 1944 Unknown [id number] 2.16.840.1.116160.3.579.2.593 1944 Unknown [id number] 2.16.840.1.792990.3.579.2.593 1944 Unknown [id number] 2.16.840.1.000241.3.579.2.593 1944 Unknown [id number] 2.16.840.1.317609.3.579.2.593 1944 Unknown [id number] 2.16.840.1.450034.3.579.2.593 1944 Unknown [id number] 2.16.840.1.280686.3.579.2.593 1944 Unknown [id number] 2.16.840.1.836285.3.579.2.593 1944 Unknown [id number] 2.16.840.1.404781.3.579.2.593 1944 Unknown [id number] 2.16.840.1.225626.3.579.2.593 1944 Unknown [id number] 2.16.840.1.584005.3.579.2.593 1944 Unknown [id number] 2.16.840.1.612057.3.579.2.593 1944 Unknown [id number] 2.16.840.1.639316.3.579.2.593 1944 Unknown [id number] 2.16.840.1.214262.3.579.2.593 1944 Unknown [id number] 2.16.840.1.856161.3.579.2.593 1944 Unknown [id number] 2.16.840.1.277440.3.579.2.593 1944 Unknown [id number] 2.16.840.1.055066.3.579.2.593 1944 Unknown [id number] 2.16.840.1.666528.3.579.2.593 1944 Unknown [id number] 2.16.840.1.753825.3.579.2.593 1944 Unknown [id number] 2.16.840.1.452022.3.579.2.593 1944 Unknown [id number] 2.16.840.1.982858.3.579.2.593 1944 Unknown [id number] 2.16.840.1.048021.3.579.2.593 1944 Unknown [id number] 2.16.840.1.156413.3.579.2.593 1944 Unknown [id number] 2.16.840.1.118002.3.579.2.593 1944 Unknown [id number] 2.16.840.1.089776.3.579.2.593 1944 Unknown [id number] 2.16.840.1.630281.3.579.2.593 1944 Unknown [id number] 2.16.840.1.791223.3.579.2.593 1944 Unknown [id number] 2.16.840.1.021661.3.579.2.593 1944 Unknown [id number] 2.16.840.1.178713.3.579.2.593 1944 Unknown [id number] 2.16.840.1.992228.3.579.2.593 1944 Unknown [id number] 2.16.840.1.627960.3.579.2.593 1944 Unknown [id number] 2.16.840.1.678807.3.579.2.593 1944 Unknown [id number] 2.16.840.1.325946.3.579.2.593 1944 Unknown [id number] 2.16.840.1.796017.3.579.2.593 1944 Unknown [id number] 2.16840.1.730509.3.579.2.593 1944 Unknown [id number] 2.840.1.835204.3.579.2.593 1944 Unknown [id number] 2.16840.1.982636.3.579.2.593 1944 Unknown [id number] 2.16840.1.525677.3.579.2.593 1944 Unknown [id number] 2.16840.1.471947.3.579.2.593 1944 Unknown [id number] 2.16840.1.772826.3.579.2.593 1944 Unknown [id number] 2.16840.1.834057.3.579.2.593 Medicare Medicare Outpatient [id number] 2T [id number] Unknown [id number] 2.16.840.1.473153.3.579.2.593 Unknown [id number] 2.16840.1.524605.3.579.2.593 Unknown [id number] 2.16.840.1.211728.3.579.2.531 Social History Date Type Detail Facility Start: 03-09-2011 End: 02-26-2022 Tobacco smoking status NHIS Ex-smoker [facility] Work Phone: End: 02-15-1975 History of tobacco use Current smoker [facility] Work Phone: End: 02-15-1975 History of tobacco use Cigarette Smoker [facility] Work Phone: Start: 04-08-2021 End: 02-26-2022 Alcohol intake Current drinker of alcohol (finding) [facility] Start: 1945 Sex Assigned At Not on file C [facility] Start: 03-09-2011 End: 03-02-2022 Cigarettes smoked current (pack per day) - Reported 1 [facility] Work Phone: Start: 03-09-2011 End: 02-26-2022 Tobacco use and exposure Smokeless tobacco non-user [facility] Start: 09-25-2021 History SDOH Financial 5 [facility] Start: 09-25-2021 History SDOH Food Worry 1 [facility] Start: 09-25-2021 History SDOH Transpo rt Med 2 [facility] Start: 09-14-2021 End: 01-12-2022 Exposure to SARS-CoV-2 (event) Not sure [facility] Start: 02-26-2022 End: 03-02-2022 Sex Assigned At [facility] Work Phone: Start: 1945 Sex Assigned At Male F [facility] How hard is it for y ou to pay for the very basics like food, housing, medical care, and heating Not hard at all [facility] Work Phone: (I/We) worried wheth er (my/our) food would run out before (I/we) got money to buy more. Never true [facility] Work Phone: In the past 12 month s, was there a time when you were not able to pay the mortgage or rent on time? No [facility] Work Phone: Medical Equipment Procedure Code Equipment Code Equipment Original Text Equipment Identifier Dates Tye Hopper urecuff 5fr Polyurethane Catheter 1 Lumen Microintroducer - [id number] Start: 12-06-2021 Clinical Notes 06-05-2021 to 01-14-2023 Note Date & Type Note Facility 01-14-2023 Evaluation note Encounter Date Diagnosis Assessment Notes Dec, ASHD (arterioscleroti c heart disease) (ICD-10 - I25.10) This patient is stable without activity related CP, dyspnea or lightheadedness. They are instructed to continue exercise and AHA diet plan. Continue secondary prevention measures. Dec, Longstanding persistent atrial fibrillation (ICD-10 - I48.11) This patient is in NSR or rate controlled. This patient is anticoagulated to prevent thromboembolic events. They are maintaining regular scheduled appts with their rotary engine assembler. No bleeding complications Dec, Hyperlipidemia LDL goal <100 (ICD-10 - E78.5) Instructed on diet and exercise with continued statin therapy.Discussed the beneficial effects of lowering cholesterol in reducing the risk for cerebrovascular and cardiovascular disease. Dec, Type 1 diabetes mellitus with hyperglycemia (ICD-10 - E10.65) This patient is following a comprehensive diabetic treatment plan. They are checking their feet daily for calluses and nonhealing ulcers. They are being seen for yearly dilated eye examinations. Goals: SBP less than 130, LDL less than 100, FBS less than 140, A1C less than 7%. They are checking their BS daily, will which are reviewed at the office visit. Continue regular routine monitoring of A1C,] Microalbumin, Dilated eye exam and Foot exam Dec, Controlled type 1 diabetes mellitus with peripheral vascular disease (ICD-10 - E10.51) s/p B/L lower extremity amputation Dec, Kidney transplant status (ICD-10 - Z94.0) The patient is instructed on adequate control of hypertension and diabetes, if appropriate. They are also educated on the associated risks of NSAIDs and PPI use with kidney disease. They were instructed on adequate fluid balance and to avoid dehydration. Dec, intermediate (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 of insulin (ICD-10 - Z79.4) [facility] Other 10-26-2023 Evaluation note* Encounter Date Diagnosis Assessment Notes Treatment Notes Treatment Clinical Notes Nov, Longstanding persistent atrial fibrillation (ICD-10 - I48.11) This patient is in NSR or rate controlled. This patient is anticoagulated to prevent thromboembolic events. They are maintaining regular scheduled appts with their rotary engine assembler. No bleeding complications Nov, Hyperlipidemia LDL goal <100 (ICD-10 - E78.5) Instructed on diet and exercise with continued statin therapy.Discussed the beneficial effects of lowering cholesterol in reducing the risk for cerebrovascular and cardiovascular disease. Nov, Type 1 diabetes mellitus with hyperglycemia (ICD-10 - E10.65) This patient is following a comprehensive diabetic treatment plan. They are checking their feet daily for calluses and nonhealing ulcers. They are being seen for yearly dilated eye examinations. Goals: SBP less than 130, LDL less than 100, FBS less than 140, A1C less than 7%. They are checking their BS daily, will which are reviewed at the office visit. Continue regular routine monitoring of A1C,] Microalbumin, Dilated eye exam and Foot exam Nov, Controlled type 1 diabetes mellitus with peripheral vascular disease (ICD-10 - E10.51) s/p B/L amputation. No open wounds on stumps. Nov, ASHD (arteriosclerotic heart disease) (ICD-10 - I25.10) This patient is stable without activity related CP, dyspnea or lightheadedness. They are instructed to continue exercise and AHA diet plan. Continue secondary prevention measures. Nov, Kidney transplant status (ICD-10 - Z94.0) Monthly labs to transplant clinic Nov, intermediate (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 of insulin (ICD-10 - Z79.4) [facility] Other 09-28-2023 Evaluation note* Encounter Date Diagnosis Assessment Notes Treatment Notes Treatment Clinical Notes Oct, ASHD (arteriosclerotic heart disease) (ICD-10 - I25.10) This patient is stable without activity related CP, dyspnea or lightheadedness. They are instructed to continue exercise and AHA diet plan. Continue secondary prevention measures. Oct, Longstanding persistent atrial fibrillation (ICD-10 - I48.11) This patient is in NSR or rate controlled. This patient is anticoagulated to prevent thromboembolic events. They are maintaining regular scheduled appts with their rotary engine assembler. No bleeding complications Oct, Type 1 diabetes mellitus with hyperglycemia (ICD-10 - E10.65) This patient is following a comprehensive diabetic treatment plan. They are checking their feet daily for calluses and nonhealing ulcers. They are being seen for yearly dilated eye examinations. Goals: SBP less than 130, LDL less than 100, FBS less than 140, A1C less than 7%. They are checking their BS daily, will which are reviewed at the office visit. Continue regular routine monitoring of A1C,] Microalbumin, Dilated eye exam and Foot exam Oct, Controlled type 1 diabetes mellitus with peripheral vascular disease (ICD-10 - E10.51) s/p B/L amputations Stumps w/o ulcerations. Oct, Hyperlipidemia LDL goal <100 (ICD-10 - E78.5) Instructed on diet and exercise with continued statin therapy.Discussed the beneficial effects of lowering cholesterol in reducing the risk for cerebrovascular and cardiovascular disease. Oct, Kidney transplant status (ICD-10 - Z94.0) Continue routine surveillance labs. Oct, medical terminologist (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 of insulin (ICD-10 - Z79.4) [facility] Other 09-01-2023 Miscellaneous Notes* Telephone Encounter - Mary Martinez - 10/16/2022 1:08 PM EDT Pharmacy comment: REQUEST FOR 90 DAYS PRESCRIPTION. DX Code Needed. 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 They are instructed to continue exercise and AHA diet plan. Sep, Longstanding persistent atrial fibrillation (ICD-10 - I48.11) This patient is rate controlled. This patient is anticoagulated to prevent thromboembolic events. They are maintaining regular scheduled appts with their rotary engine assembler. No bleeding complications Sep, Type 1 diabetes mellitus with hyperglycemia (ICD-10 - E10.65) This patient is following a comprehensive diabetic treatment plan. They are checking their feet daily for calluses and nonhealing ulcers. They are being seen for yearly dilated eye examinations. Goals: SBP less than 130, LDL less than 100, FBS less than 140, AC and A1C less than 7%. They are checking their BS daily, will which are reviewed at the office visit. 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 Mitodrine if frequent. Sep, Controlled type 1 diabetes mellitus with peripheral vascular disease (ICD-10 - E10.51) s/p B/L amputation. No nonhealing ulcerations present Sep, Hyperlipidemia LDL goal <100 (ICD-10 - E78.5) Instructed on diet and exercise with continued statin therapy.Discussed the beneficial effects of lowering cholesterol in reducing the risk for cerebrovascular and cardiovascular disease. Sep, intermediate (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 of insulin (ICD-10 - Z79.4) Sep, Kidney transplant status (ICD-10 - Z94.0) f/u transplant clinic Continue surveillance labs [facility] Other 08-08-2023 Miscellaneous Notes* Telephone Encounter - Ariadna Mcdowell Tech - 09/22/2022 8:58 AM EDT Pharmacy requesting refills as follows: Requested Prescriptions Pending Prescriptions Disp Refills tacrolimus IR (PROGRAF) 1 mg capsule Sig: Take 1 capsule by mouth DAILY AT 6 PM. Please review and advise. Ariadna Mcdowell, documented in this encounterL[facility]07[facility] Evaluation note* Encounter Date Diagnosis Assessment Notes Treatment Notes Treatment Clinical Notes Aug, Longstanding persistent atrial fibrillation (ICD-10 - I48.11) This patient is in NSR or rate controlled. This patient is anticoagulated to prevent thromboembolic events. They are maintaining regular scheduled appts with their rotary engine assembler. No s/s bleeding Aug, Type 1 diabetes mellitus with hyperglycemia (ICD-10 - E10.65) labile BS, several hypoglycemic epdisodes Contiue to follow ISS per Dr. 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 Aug, ASHD (arteriosclerotic heart disease) (ICD-10 - I25.10) This patient is stable without activity related CP, dyspnea or lightheadedness. They are instructed to continue AHA diet plan. Aug, Hyperlipidemia LDL goal <100 (ICD-10 - E78.5) Instructed on diet and exercise with continued statin therapy.Discussed the beneficial effects of lowering cholesterol in reducing the risk for cerebrovascular and cardiovascular disease. Aug, intermediate (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 of insulin (ICD-10 - Z79.4) Aug, Kidney transplant status (ICD-10 - Z94.0) Continue close surveillance w/ [employer] [employer]) Other 07-26-2023 NotePatient here for 1.5 year follow up and device check. Lightheaded in the office today, as BP is very low. He denies chest pain, SOB, palpitations, and bleeding on warfarin. Had routine labs last week. Review of Systems Musculoskeletal: Positive for arthritis, joint pain and myalgias. Neurological: Positive for light-headedness. All other systems reviewed and are negative.[facility] 09-09-2022 NoteUT Electrophysiology Consult Note Reason for visit: follow up, last seen 03/2021, HFrEF, PPM, CAD s/p CABG HPI: Alex Almonte is a 76 y.o. year old with past medical history of CAD s/p CABG x1 2012 and PCI to OM2 in 2017, HFrEF, HTN, sinus node dysfunction s/p PPM, neurogenic orthostatic hypotension, DM type II, ESRD s/p renal tx 03/2001, hx AKA amputation left leg d/t infection 2002 He had hospital admission 11/2021 and was found to have acute kidney injury secondary to infection and was found to be in A-fib RVR He had echocardiogram 11/24/2021 showed EF 45 to 50%, LA mildly dilated, mild concentric LVH Device Check 09/09/2022 shows normal device function and stable lead threshold and A-fib but no RVR patient is lightheaded and dizzy, he is seated in wheelchair. Blood pressure 68/48, have attempted multiple rechecks and automatic blood pressure cuff cannot give me a number, manual blood pressure cuff and begin to hear pulsating at about 50-60 systolic. patient with friend/ team truck driver from facility, we will take patient to the ER for evaluation --------- Per dr. Alvarez 03/2021 Mr. Almonte, Ord , presents to clinic for routine follow up. He is a 75-year-old man with prior medical history of: CAD s/p CABG x1 2012 and PCI to OM2 in 2016, HFrEF, HTN, sinus node dysfunction s/p PPM, neurogenic orthostatic hypotension, DM type II, ESRD s/p renal tx 03/2001, hx AKA amputation left leg d/t infection 2002 In December 2020 he was started on anticoagulation with Eliquis due to episodes of atrial fibrillation seen on device checks. Today he reports that he has been doing well. He has no issues with Eliquis. No bleeding. No falls. He denies any c/o chest pain, dyspnea, orthopnea, PND, dizziness/LH, syncope, palpitations. Blood testing 01/23/2021: CBC within normal limits. Blood testing 12/09/2020: Hemoglobin 16.3, platelets 184, potassium 4.0, BUN 32, creatinine 1.35. Prior testing: Device check 12/18/20: AT episodes, highest RVR 104 (longest 2 days); normal functioning device Device interrogation 06/19/20: normal fxn device; multiple episodes of atrial tachycardia (a.fib/a.flutter) from 30 seconds to 8 hours. 2 episodes of HVR for 8 seconds and 6 seconds. Labs 06/19/20 CBC: unremarkable BMP: Cr. 1.63, BUN 26, K 4.5, GFR 41 Lipids 08/09/2018: Chol 133, HDL 67, trig 26, LDL 60 ECHO 06/2019 The left ventricle is normal size. Global left ventricular systolic function is mildly reduced. The EF is 45 % visually. Interventricular septal thickness is increased in the proximal portion. The septum is abnormal in its motion. Grade 1, mild diastolic dysfunction (abnormal relaxation). The right ventricle is normal in size. Normal right ventricular systolic function. Unable to assess right sided pressures due to lack of measurable tricuspid regurgitation. The left atrium is at upper normal limits in size. The right atrium is mildly enlarged. Mild dilatation of the ascending aorta. Cardiovascular Laboratory Report (03/05/[address] Orosco) FINAL IMPRESSIONS: 1. Severe stenosis of a moderate to large second obtuse marginal branch of the left circumflex coronary artery successfully treated by balloon angioplasty and Synergy drug-eluting stent placement. 2. Occlusion of the mid left anterior descending coronary artery with distal flow being supplied by a patent left internal mammary artery graft. 3. Severe stenosis of a moderate-sized second diagonal branch of the left anterior descending coronary artery with heavy calcification. 4. Chronic total occlusion of the right coronary artery with robust [id number] collaterals. 5. Normal global left ventricular systolic function by noninvasive imaging. RECOMMENDATIONS: 1. Aggressive cardiovascular risk factor modification. 2. Optimization of medical management; aspirin 81 mg lifelong, Plavix 75 mg for a minimum of 6 months preferably long-term, statin plus or minus a beta bert and an angiotensin-converting enzyme inhibitor as tolerated. 3. Should the patient have further symptomatology or appropriate clinical indications, potential revascularization of the second diagonal branch could be considered. The chronic total occlusion of the right coronary artery appears to be a complex high risk lesion; revascularization should be reserved for significant symptomatology or large area of inferior ischemia. 4. Follow up with Dr. Galvez in the [facility] in the next 2 weeks; he may follow up with Dr. Orosco as needed for interventional issues. 5. Follow up with Dr. Devon Ball as scheduled. PMH: Past Medical History: Diagnosis Date Abnormal ECG Arrhythmia Atrial fibrillation (CMS/HCC) Chronic kidney disease Coronary artery disease Diabetes mellitus (CMS/HCC) (more content not included)...[facility] Evaluation note* Encounter Date Diagnosis Assessment Notes Treatment Notes Treatment Clinical Notes Jul, ASHD (arteriosclerotic heart disease) (ICD-10 - I25.10) This patient is stable without activity related CP, dyspnea or lightheadedness. They are instructed to continue exercise and AHA diet plan. Jul, Longstanding persistent atrial fibrillation (ICD-10 - I48.11) This patient is in NSR or rate controlled. This patient is anticoagulated to prevent thromboembolic events. They are maintaining regular scheduled appts with their rotary engine assembler. No bleeding complications Jul, Type 1 diabetes mellitus with hyperglycemia (ICD-10 - E10.65) This patient is following a comprehensive diabetic treatment plan. They are checking their feet daily for calluses and nonhealing ulcers. They are being seen for yearly dilated eye examinations. Goals: SBP less than 130, LDL less than 100, FBS less than 140, AC and A1C less than 7%. They are checking their BS daily, will which are reviewed at the office visit. Continue regular routine monitoring of A1C,] Microalbumin, Dilated eye exam and Foot exam Jul, Controlled type 1 diabetes mellitus with peripheral vascular disease (ICD-10 - E10.51) s/p left AKA and right BKA. Jul, Hyperlipidemia LDL goal <100 (ICD-10 - E78.5) Instructed on diet and exercise with continued statin therapy.Discussed the beneficial effects of lowering cholesterol in reducing the risk for cerebrovascular and cardiovascular disease. Jul, medical terminologist (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 of insulin (ICD-10 - Z79.4) Jul, Kidney transplant status (ICD-10 - Z94.0) Monthly labs, ongoing surveillance from transplant clinic [facility] Other 05-15-2023 Progress note Author Sadia Aguilar [facility] June 29, 2022 2:47pm Note Date/Time June 29, 2022 2:46p m [facility] [address] [place] [address] Wound Center Provider Note Signed Patient: Alex Almonte MR#: [id number] : 1945 Acct:[id number] Age/Sex: 76 / M Copies to: Devon Moreira,DO Sadia Aguilar, DENTAL EQUIPMENT REPAIRER~ HPI Date of Visit Date of Visit: Date of Service: 06/29/2022 Time of Service: 14:45 Narrative HPI: 12/30/21 Alex is a 76 year old male presenting to [facility] wound care for aninitial visit for eval and treatment of a sacral/coccyx area pressure ulcer. He resides at [facility]. There is an MOTOR BUILDER WINDER present for the visit. Medicalhoney gel will be use for debridement and antimicrobial purposes. He will need to offload pressure and have a well balanced diet that is somewhat higher in protein and amino acids and lower in inflammation foods. Labs were ordered to check his nutrition status. Alex will be seen back in a few weeks. 01/20/22 orders are more or less the same, an xray was ordered to check for bone infection d/t the depth change, we had to reorder labs since it appears that those were never done or at least they were not faxed to us as requested, he mayneed a surgical consult depending on what the xray shows, he needed cleaned up today from a large BM- this was done by 3 nursing staff members, follow up in few weeks 02/10/22 orders kept the same, xray result was negative for infection in the bone, will probably repeat this at the next visit if no improvement, nutrition labs are low and so dietitian consult was ordered, still might need surgery consult, again came to appt with large BM in his brief that was cleaned by this video games storywriter as well as another nursing staff member, few weeks to follow up 03/03/22 orders changed to iodoflex, ulcer is better today, 3 week appt, do not see notes as to what the dietitian did for the low lab values 03/24/22 some improvement, orders changed to collagen silver, 3-4 week appt 04/14/22 improved again, orders the same, 4 week appt 05/11/22 continues to improve, orders the same, 4 week appt, no signs of infection, discussed his blood sugars and his appetite, 15 minutes total was spent on eval and treatment and education of the patient 06/08/22 much smaller and is trying to close from the outside instead of from theinside, silver nitrate used on the rolled edges, 3-4 week appt, orders changed to strip gauze packing 06/29/22 stable, orders changed to collagen silver packing, 3-4 week appt Subjective Pain Coccyx: Pain Intensity: 0 Wound/Ulcer History When did wound start?: 4 weeks ago- from initial visit here Mode of Arrival/ Threat Monitoring Analyst: Facility vehicle Assistive Device Used Today: Wheelchair and Indra Lives with:: Care/Nursing Facility Appetite Description: Within Normal Limits Who helps w/ dressing change?: Nursing Facility Why Do You Need Help?: Can't Reach Ulcer, Limited mobility and Taxing effort to leave home Smoking Status: Former smoker [facility] Medical History (Updated 03/03/22 @ 14:41 by Sadia Aguilar APRN) Below-knee amputation of right lower extremity Diabetes Fistula Left below-knee amputee Paroxysmal atrial fibrillation Peripheral vascular disease Family History Father Aneurysm Father Parkinsons disease Social History Smoking Status: Former smoker Tobacco Type: cigarettes Substance Use Type: None Grafts History of Graft History of Graft?: No Exam Physical Exam Vital Signs: Temp Pulse Resp BP O2 Del Method 98.1 F 71 20 76/39 L Room Air 06/08/22 14:05 06/29/22 14:34 06/29/22 14:34 06/29/22 14:34 06/29/22 14:34 Const General: cooperative, comfortable and no acute distress Nutritional Appearance: overweight Orientation: alert, awake and oriented x3 Lower/Upper Extremity Exam Vascular Exam-Pulses Right Brachial: Pulse Assessment Method: NIBP Objective Meds/Allergies Home Medications insulin aspart U-100 100 unit/mL subcutaneous solution 100 sliding scale dose subcut TIDWM 01/23/19 [History Confirmed 05/11/22] insulin glargine 100 unit/mL subcutaneous solution 6 units subcut DAILY 01/23/19[History Confirmed 05/11/22] latanoprost 0.005 % eye drops 1 drp Eye-Both DAILY 01/23/19 [History Confirmed 05/11/22] prednisone 5 mg tablet 5 mg PO DAILY 01/23/19 [History Confirmed 05/11/22] sulfamethoxazole 400 mg-trimethoprim 80 mg tablet 1 tab PO 3XW 01/23/19 [History Confirmed 05/11/22] tacrolimus 1 mg capsule, immediate-release 2 cap PO BID 01/23/19 [History Confirmed 05/11/22] aspirin 81 mg tablet,delayed release 81 mg PO DAILY 12/30/21 [History Confirmed 05/11/22] atorvastatin 40 mg tablet (Lipitor) 40 mg PO DAILY 12/30/21 [History Confirmed 05/11/22] oxycodone 5 mg capsule 5 mg PO Q4H PRN Pain 12/30/21 [History Confirmed 05/11/22] polyethylene glycol 3350 17 gram/dose oral powder (Miralax) 17 g PO DAILY 12/30/21 [History Confirmed 05/11/22] torsemide 20 mg tablet 20 mg PO DIRECTED 12/30/21 [History Confirmed 05/11/22] warfarin 1 mg tablet 1 mg PO 3XW 12/30/21 [History Confirmed 05/11/22] warfarin 2 mg tablet 2 mg PO QTUTHSASU 12/30/21 [History Confirmed 05/11/22] potassium chloride 10 mEq tablet,extended release (Klor-Con) 10 meq PO DAILY 01/20/22 [History Confirmed 05/11/22] Allergies No Known Allergies Allergy (Unverified 01/20/19 08:48) Wound/Ulcer Sacrum: Type: Pressure/Injury Ulcer Pressure Ulcer/Injury Staging: Unstageable Bed Appearance: Beefy Red, [place], Yellow and Rolled Edges Percent of Wound Bed Granulated/Red: 95 Percent of Devitalized: 5 Length (cm): 0.3 Width (cm): 0.3 Depth (cm): 1 CM Sq: 0.090 Surrounding Tissue Appearance: Hyperpigmented Surrounding Tissue Temp: Warm Drainage Amount: Scant Drainage Description: Yellow Drainage Odor: No Odor Results Labs: Laboratory Last Values POC Glucose 162 mg/dl 04/14/22 14:23 POC Glucose Comment Glu2: cleaned meter 04/14/22 14:23 Height: 6 ft 4 in Assessment/Plan Assessment/Plan (1) Pressure ulcer of sacral region, unstageable: Code(s): L89.150 - Pressure ulcer of sacral region, unstageable Status: Chronic (2) Diabetes: Code(s): E11.9 - Type 2 diabetes mellitus without complications Status: Chronic (3) Limited mobility: Code(s): Z74.09 - Other reduced mobility Status: Chronic (4) Poor appetite: Code(s): R63.0 - Anorexia Status: Chronic (5) At high risk for skin breakdown: Assessment/Problem Details: d/t limited mobility and double leg amputee Code(s): Z91.89 - Other specified personal risk factors, not elsewhere classified Status: Chronic (6) Fecal incontinence: Code(s): R15.9 - Full incontinence of feces Status: Chronic Time spent with patient Time Spent With Patient (min): 15 Dictated By: Sadia Aguilar APRN DD/ 144 Signed By: <Electronically signed by DAVID Aguilar> 06/29/22 1447 [facility] Work Phone: [phone]) 735-667505-11-2023 Evaluation note* Encounter Date Diagnosis Assessment Notes Treatment Notes Treatment Clinical Notes June, ASHD (arteriosclerotic heart disease) (ICD-10 - I25.10) This patient is stable without activity related CP, dyspnea or lightheadedness. They are instructed to continue exercise and AHA diet plan. June, Type 1 diabetes mellitus with hyperglycemia (ICD-10 - E10.65) This patient is following a comprehensive diabetic treatment plan. They are checking their feet daily for calluses and nonhealing ulcers. They are being seen for yearly dilated eye examinations. Goals: SBP less than 130, LDL less than 100, FBS less than 140, AC and A1C less than 7%. They are checking their BS daily, will which are reviewed at the office visit. A1C: [ ] Microalbumin: [ ] Eye exam: [ ] Foot exam: [ ] June, Longstanding persistent atrial fibrillation (ICD-10 - I48.11) This patient is rate controlled. This patient is anticoagulated to prevent thromboembolic events. They are maintaining regular scheduled appts with their rotary engine assembler. No bleeding complications June, Hyperlipidemia LDL goal <100 (ICD-10 - E78.5) Instructed on diet and exercise with continued statin therapy.Discussed the beneficial effects of lowering cholesterol in reducing the risk for cerebrovascular and cardiovascular disease. June, medical terminologist (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 of insulin (ICD-10 - Z79.4) June, Kidney transplant status (ICD-10 - Z94.0) No s/s rejection [facility] Other 04-24-2023 Progress note Author Sadia Aguilar [facility] June 08, 2022 2:10pm Note Date/Time June 08, 2022 2:1 0pm [facility] [address] [place] [address] Wound Center Provider Note Signed Patient: Alex Almonte MR#: [id number] : 1945 Acct:[id number] Age/Sex: 76 / M Copies to: DO Sadia Whyte, DAVID~ HPI Date of Visit Date of Visit: Date of Service: 06/08/2022 Time of Service: 14:07 Narrative HPI: 12/30/21 Alex is a 76 year old male presenting to [facility] wound care for aninitial visit for eval and treatment of a sacral/coccyx area pressure ulcer. He resides at [facility]. There is an MOTOR BUILDER WINDER present for the visit. Medicalhoney gel will be use for debridement and antimicrobial purposes. He will need to offload pressure and have a well balanced diet that is somewhat higher in protein and amino acids and lower in inflammation foods. Labs were ordered to check his nutrition status. Alex will be seen back in a few weeks. 01/20/22 orders are more or less the same, an xray was ordered to check for bone infection d/t the depth change, we had to reorder labs since it appears that those were never done or at least they were not faxed to us as requested, he mayneed a surgical consult depending on what the xray shows, he needed cleaned up today from a large BM- this was done by 3 nursing staff members, follow up in few weeks 02/10/22 orders kept the same, xray result was negative for infection in the bone, will probably repeat this at the next visit if no improvement, nutrition labs are low and so dietitian consult was ordered, still might need surgery consult, again came to appt with large BM in his brief that was cleaned by this video games storywriter as well as another nursing staff member, few weeks to follow up 03/03/22 orders changed to iodoflex, ulcer is better today, 3 week appt, do not see notes as to what the dietitian did for the low lab values 03/24/22 some improvement, orders changed to collagen silver, 3-4 week appt 04/14/22 improved again, orders the same, 4 week appt 05/11/22 continues to improve, orders the same, 4 week appt, no signs of infection, discussed his blood sugars and his appetite, 15 minutes total was spent on eval and treatment and education of the patient 06/08/22 much smaller and is trying to close from the outside instead of from theinside, silver nitrate used on the rolled edges, 3-4 week appt, orders changed to strip gauze packing Subjective Pain Coccyx: Pain Description: Intermittent Pain Intensity: 0 Pain Management Techniques Other/Comment: Describes as minor Wound/Ulcer History When did wound start?: 4 weeks ago- from initial visit here Mode of Arrival/ Threat Monitoring Analyst: Facility vehicle Assistive Device Used Today: Wheelchair and Indra Lives with:: Care/Nursing Facility Appetite Description: Within Normal Limits Who helps w/ dressing change?: Nursing Facility Why Do You Need Help?: Can't Reach Ulcer, Limited mobility and Taxing effort to leave home Smoking Status: Former smoker [facility] Medical History (Updated 03/03/22 @ 14:41 by Sadia Aguilar APRN) Below-knee amputation of right lower extremity Diabetes Fistula Left below-knee amputee Paroxysmal atrial fibrillation Peripheral vascular disease Family History Father Aneurysm Father Parkinsons disease Social History Smoking Status: Former smoker Tobacco Type: cigarettes Substance Use Type: None Grafts History of Graft History of Graft?: No Exam Physical Exam Vital Signs: Temp Pulse Resp BP O2 Del Method 98.1 F 73 20 97/39 L Room Air 06/08/22 14:05 06/08/22 14:05 06/08/22 14:05 06/08/22 14:05 06/08/22 14:05 Const General: cooperative, comfortable and no acute distress Nutritional Appearance: overweight Orientation: alert, awake and oriented x3 Lower/Upper Extremity Exam Vascular Exam-Pulses Right Radial: Pulse Assessment Method: NIBP Objective Meds/Allergies Home Medications insulin aspart U-100 100 unit/mL subcutaneous solution 100 sliding scale dose subcut TIDWM 01/23/19 [History Confirmed 05/11/22] insulin glargine 100 unit/mL subcutaneous solution 6 units subcut DAILY 01/23/19[History Confirmed 05/11/22] latanoprost 0.005 % eye drops 1 drp Eye-Both DAILY 01/23/19 [History Confirmed 05/11/22] prednisone 5 mg tablet 5 mg PO DAILY 01/23/19 [History Confirmed 05/11/22] sulfamethoxazole 400 mg-trimethoprim 80 mg tablet 1 tab PO 3XW 01/23/19 [History Confirmed 05/11/22] tacrolimus 1 mg capsule, immediate-release 2 cap PO BID 01/23/19 [History Confirmed 05/11/22] aspirin 81 mg tablet,delayed release 81 mg PO DAILY 12/30/21 [History Confirmed 05/11/22] atorvastatin 40 mg tablet (Lipitor) 40 mg PO DAILY 12/30/21 [History Confirmed 05/11/22] oxycodone 5 mg capsule 5 mg PO Q4H PRN Pain 12/30/21 [History Confirmed 05/11/22] polyethylene glycol 3350 17 gram/dose oral powder (Miralax) 17 g PO DAILY 12/30/21 [History Confirmed 05/11/22] torsemide 20 mg tablet 20 mg PO DIRECTED 12/30/21 [History Confirmed 05/11/22] warfarin 1 mg tablet 1 mg PO 3XW 12/30/21 [History Confirmed 05/11/22] warfarin 2 mg tablet 2 mg PO QTUTHSASU 12/30/21 [History Confirmed 05/11/22] potassium chloride 10 mEq tablet,extended release (Klor-Con) 10 meq PO DAILY 01/20/22 [History Confirmed 05/11/22] Allergies No Known Allergies Allergy (Unverified 01/20/19 08:48) Wound/Ulcer Sacrum: Type: Pressure/Injury Ulcer Pressure Ulcer/Injury Staging: Unstageable Bed Appearance: Beefy Red, Pavillion, Yellow and Rolled Edges Percent of Wound Bed Granulated/Red: 95 Percent of Devitalized: 5 Length (cm): 0.2 Width (cm): 0.2 Depth (cm): 0.7 CM Sq: 0.040 Surrounding Tissue Appearance: Hyperpigmented Surrounding Tissue Temp: Warm Drainage Amount: Scant Drainage Description: Yellow Drainage Odor: No Odor Chemical Cauterization: Chem Caut-Epibole Procedures Time Out: 2 Patient Identifiers, Correct Patient, Correct Side/Site, Correct Procedure and Safety Issues Reviewed Procedure: Silver nitrate was used to knock down the rolled edges- he had no pain. Results Labs: Laboratory Last Values POC Glucose 162 mg/dl 04/14/22 14:23 POC Glucose Comment Glu2: cleaned meter 04/14/22 14:23 Height: 6 ft 4 in Assessment/Plan Assessment/Plan (1) Pressure ulcer of sacral region, unstageable: Code(s): L89.150 - Pressure ulcer of sacral region, unstageable Status: Chronic (2) Diabetes: Code(s): E11.9 - Type 2 diabetes mellitus without complications Status: Chronic (3) Limited mobility: Code(s): Z74.09 - Other reduced mobility Status: Chronic (4) Poor appetite: Code(s): R63.0 - Anorexia Status: Chronic (5) At high risk for skin breakdown: Assessment/Problem Details: d/t limited mobility and double leg amputee Code(s): Z91.89 - Other specified personal risk factors, not elsewhere classified Status: Chronic (6) Fecal incontinence: Code(s): R15.9 - Full incontinence of feces Status: Chronic Time spent with patient Time Spent With Patient (min): 15 Dictated By: Sadia Aguilar APRN DD/ 1407 Signed By: <Electronically signed by DAVID Aguilar> 06/08/22 1410 [facility] Work Phone: [phone]) 638-494804-21-2023 Evaluation note* Encounter Date Diagnosis Assessment Notes Treatment Notes Treatment Clinical Notes May, Type 1 diabetes mellitus with hyperglycemia (ICD-10 - E10.65) This patient is following a comprehensive diabetic treatment plan. They are checking their feet daily for calluses and nonhealing ulcers. They are being seen for yearly dilated eye examinations. Goals: SBP less than 130, LDL less than 100, FBS less than 140, AC and A1C less than 7%. They are checking their BS daily, will which are reviewed at the office visit. May, ASHD (arteriosclerotic heart disease) (ICD-10 - I25.10) This patient is stable without activity related CP, dyspnea or lightheadedness. They are instructed to continue AHA diet plan. May, Longstanding persistent atrial fibrillation (ICD-10 - I48.11) This patient is in NSR or rate controlled. This patient is anticoagulated to prevent thromboembolic events. They are maintaining regular scheduled appts with their rotary engine assembler. May, intermediate (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 of insulin (ICD-10 - Z79.4) May, Kidney transplant status (ICD-10 - Z94.0) routine labs per clinic. 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 No open ulcerations present Pain controlled [facility] Other 03-27-2023 Progress note Author Sadia Aguilar [facility] May 11, 2022 1:41pm Note Date/Time May 11, 2022 1:4 0pm [facility] [address] [place] [address] Wound Center Provider Note Signed Patient: Alex Almonte MR#: [id number] : 1945 Acct:[id number] Age/Sex: 76 / M Copies to: DO Sadia Whyte APRN~ HPI Date of Visit Date of Visit: Date of Service: 05/11/2022 Time of Service: 13:38 Narrative HPI: 12/30/21 Alex is a 76 year old male presenting to [facility] wound care for aninitial visit for eval and treatment of a sacral/coccyx area pressure ulcer. He resides at [facility]. There is an MOTOR BUILDER WINDER present for the visit. Medicalhoney gel will be use for debridement and antimicrobial purposes. He will need to offload pressure and have a well balanced diet that is somewhat higher in protein and amino acids and lower in inflammation foods. Labs were ordered to check his nutrition status. Alex will be seen back in a few weeks. 01/20/22 orders are more or less the same, an xray was ordered to check for bone infection d/t the depth change, we had to reorder labs since it appears that those were never done or at least they were not faxed to us as requested, he mayneed a surgical consult depending on what the xray shows, he needed cleaned up today from a large BM- this was done by 3 nursing staff members, follow up in few weeks 02/10/22 orders kept the same, xray result was negative for infection in the bone, will probably repeat this at the next visit if no improvement, nutrition labs are low and so dietitian consult was ordered, still might need surgery consult, again came to appt with large BM in his brief that was cleaned by this video games storywriter as well as another nursing staff member, few weeks to follow up 03/03/22 orders changed to iodoflex, ulcer is better today, 3 week appt, do not see notes as to what the dietitian did for the low lab values 03/24/22 some improvement, orders changed to collagen silver, 3-4 week appt 04/14/22 improved again, orders the same, 4 week appt 05/11/22 continues to improve, orders the same, 4 week appt, no signs of infection, discussed his blood sugars and his appetite, 15 minutes total was spent on eval and treatment and education of the patient Subjective Pain Coccyx: Pain Description: Intermittent Pain Intensity: 0 Pain Management Techniques Other/Comment: Describes as minor Wound/Ulcer History When did wound start?: 4 weeks ago- from initial visit here Mode of Arrival/ Threat Monitoring Analyst: Facility vehicle Assistive Device Used Today: Wheelchair and Indra Lives with:: Care/Nursing Facility Appetite Description: Within Normal Limits Who helps w/ dressing change?: Nursing Facility Why Do You Need Help?: Can't Reach Ulcer, Limited mobility and Taxing effort to leave home Smoking Status: Former smoker [facility] Medical History (Updated 03/03/22 @ 14:41 by Sadia Aguilar APRN) Below-knee amputation of right lower extremity Diabetes Fistula Left below-knee amputee Paroxysmal atrial fibrillation Peripheral vascular disease Family History Father Aneurysm Father Parkinsons disease Social History Smoking Status: Former smoker Tobacco Type: cigarettes Substance Use Type: None Grafts History of Graft History of Graft?: No Exam Physical Exam Vital Signs: Temp Pulse Resp BP O2 Del Method 97.4 F L 84 18 97/58 L Room Air 05/11/22 13:32 05/11/22 13:32 05/11/22 13:32 05/11/22 13:32 05/11/22 13:32 Const General: cooperative, comfortable and no acute distress Nutritional Appearance: overweight Orientation: alert, awake and oriented x3 Lower/Upper Extremity Exam Vascular Exam-Pulses Right Brachial: Pulse Assessment Method: NIBP Objective Meds/Allergies Home Medications insulin aspart U-100 100 unit/mL subcutaneous solution 100 sliding scale dose subcut TIDWM 01/23/19 [History Confirmed 05/11/22] insulin glargine 100 unit/mL subcutaneous solution 6 units subcut DAILY 01/23/19[History Confirmed 05/11/22] latanoprost 0.005 % eye drops 1 drp Eye-Both DAILY 01/23/19 [History Confirmed 05/11/22] prednisone 5 mg tablet 5 mg PO DAILY 01/23/19 [History Confirmed 05/11/22] sulfamethoxazole 400 mg-trimethoprim 80 mg tablet 1 tab PO 3XW 01/23/19 [History Confirmed 05/11/22] tacrolimus 1 mg capsule, immediate-release 2 cap PO BID 01/23/19 [History Confirmed 05/11/22] aspirin 81 mg tablet,delayed release 81 mg PO DAILY 12/30/21 [History Confirmed 05/11/22] atorvastatin 40 mg tablet (Lipitor) 40 mg PO DAILY 12/30/21 [History Confirmed 05/11/22] oxycodone 5 mg capsule 5 mg PO Q4H PRN Pain 12/30/21 [History Confirmed 05/11/22] polyethylene glycol 3350 17 gram/dose oral powder (Miralax) 17 g PO DAILY 12/30/21 [History Confirmed 05/11/22] torsemide 20 mg tablet 20 mg PO DIRECTED 12/30/21 [History Confirmed 05/11/22] warfarin 1 mg tablet 1 mg PO 3XW 12/30/21 [History Confirmed 05/11/22] warfarin 2 mg tablet 2 mg PO QTUTHSASU 12/30/21 [History Confirmed 05/11/22] potassium chloride 10 mEq tablet,extended release (Klor-Con) 10 meq PO DAILY 01/20/22 [History Confirmed 05/11/22] Allergies No Known Allergies Allergy (Unverified 01/20/19 08:48) Wound/Ulcer Sacrum: Type: Pressure/Injury Ulcer Pressure Ulcer/Injury Staging: Unstageable Bed Appearance: Beefy Red, Pavillion and Yellow Percent of Wound Bed Granulated/Red: 95 Percent of Devitalized: 5 Length (cm): 0.8 Width (cm): 0.5 Depth (cm): 1.2 CM Sq: 0.400 Surrounding Tissue Appearance: Hyperpigmented Surrounding Tissue Temp: Warm Drainage Amount: Moderate Drainage Description: Yellow Drainage Odor: No Odor Procedures Time Out: 2 Patient Identifiers, Correct Patient, Correct Side/Site, Correct Procedure and Safety Issues Reviewed Procedure: The sacral ulcer was not anesthetized with topical 2% lidocaine gel.? A curette was used to perform debridement for the removal of 0.4 sq cm? of devitalized tissue consisting of skin and slough.? Debridement was down to healthy bleeding tissue.? Estimated blood loss was minimal.? Hemostasis was achieved by applying pressure.? The sacral ulcer now appears about the same and the size remains the same.? The patient tolerated well. Results Labs: Laboratory Last Values POC Glucose 162 mg/dl 04/14/22 14:23 POC Glucose Comment Glu2: cleaned meter 04/14/22 14:23 Height: 6 ft 4 in Assessment/Plan Assessment/Plan (1) Pressure ulcer of sacral region, unstageable: Code(s): L89.150 - Pressure ulcer of sacral region, unstageable Status: Chronic (2) Diabetes: Code(s): E11.9 - Type 2 diabetes mellitus without complications Status: Chronic (3) Limited mobility: Code(s): Z74.09 - Other reduced mobility Status: Chronic (4) Poor appetite: Code(s): R63.0 - Anorexia Status: Chronic (5) At high risk for skin breakdown: Assessment/Problem Details: d/t limited mobility and double leg amputee Code(s): Z91.89 - Other specified personal risk factors, not elsewhere classified Status: Chronic (6) Fecal incontinence: Code(s): R15.9 - Full incontinence of feces Status: Chronic Time spent with patient Time Spent With Patient (min): 15 Dictated By: Sadia Aguilar APRN DD/ 1338 Signed By: <Electronically signed by DAVID Aguilar> 05/11/22 1341 [facility] Work Phone: [phone]) [phone] Evaluation note* Encounter Date Diagnosis Assessment Notes Treatment Notes Treatment Clinical Notes Apr, ASHD (arteriosclerotic heart disease) (ICD-10 - I25.10) This patient is stable without activity related CP, dyspnea or lightheadedness. They are instructed to continue exercise and AHA diet plan. Apr, Longstanding persistent atrial fibrillation (ICD-10 - I48.11) This patient is rate controlled. This patient is anticoagulated to prevent thromboembolic events. They are maintaining regular scheduled appts with their rotary engine assembler. Apr, Type 1 diabetes mellitus with hyperglycemia (ICD-10 - E10.65) This patient is following a comprehensive diabetic treatment plan. They are checking their feet daily for calluses and nonhealing ulcers. They are being seen for yearly dilated eye examinations. Goals: SBP less than 130, LDL less than 100, FBS less than 140, AC and A1C less than 7%. They are checking their BS daily, will which are reviewed at the office visit Apr, intermediate (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 of insulin (ICD-10 - Z79.4) Apr, Kidney transplant status (ICD-10 - Z94.0) Serial labs by clinic Hydrate, avoid NOLBERTO [facility] Other 03-10-2023 NoteHNO ID: [id number] Author: Keyur Brown MD Service: ? Author Type: Physician Type: Progress Notes Filed: 04/24/2022 10:32 AM Note Text: Encounter opened in error, patient not seen.[facility]02-28-2023 Progress note Author Sadia Aguilar [facility] April 14, 2022 2:19pm Note Date/Time April 14, 2022 2:18pm [facility] [address] [place] [address] Wound Center Provider Note Signed Patient: Alex Almonte MR#: [id number] : 1945 Acct:[id number] Age/Sex: 76 / M Copies to: Devon Moreira DO Sadia Jeff, DENTAL EQUIPMENT REPAIRER~ HPI Date of Visit Date of Visit: Date of Service: 04/14/2022 Time of Service: 14:18 Narrative HPI: 12/30/21 Alex is a 76 year old male presenting to [facility] wound care for aninitial visit for eval and treatment of a sacral/coccyx area pressure ulcer. He resides at [facility]. There is an MOTOR BUILDER WINDER present for the visit. Medicalhoney gel will be use for debridement and antimicrobial purposes. He will need to offload pressure and have a well balanced diet that is somewhat higher in protein and amino acids and lower in inflammation foods. Labs were ordered to check his nutrition status. Alex will be seen back in a few weeks. 01/20/22 orders are more or less the same, an xray was ordered to check for bone infection d/t the depth change, we had to reorder labs since it appears that those were never done or at least they were not faxed to us as requested, he mayneed a surgical consult depending on what the xray shows, he needed cleaned up today from a large BM- this was done by 3 nursing staff members, follow up in few weeks 02/10/22 orders kept the same, xray result was negative for infection in the bone, will probably repeat this at the next visit if no improvement, nutrition labs are low and so dietitian consult was ordered, still might need surgery consult, again came to appt with large BM in his brief that was cleaned by this video games storywriter as well as another nursing staff member, few weeks to follow up 03/03/22 orders changed to iodoflex, ulcer is better today, 3 week appt, do not see notes as to what the dietitian did for the low lab values 03/24/22 some improvement, orders changed to collagen silver, 3-4 week appt 04/14/22 improved again, orders the same, 4 week appt Subjective Pain Coccyx: Pain Description: Intermittent Pain Intensity: 0 Pain Management Techniques Other/Comment: Describes as minor Wound/Ulcer History When did wound start?: 4 weeks ago- from initial visit here Mode of Arrival/ Threat Monitoring Analyst: Facility vehicle Assistive Device Used Today: Wheelchair and Indra Lives with:: Care/Nursing Facility Appetite Description: Within Normal Limits Who helps w/ dressing change?: Nursing Facility Why Do You Need Help?: Can't Reach Ulcer, Limited mobility and Taxing effort to leave home Smoking Status: Former smoker [facility] Medical History (Updated 03/03/22 @ 14:41 by Sadia Aguilar APRN) Below-knee amputation of right lower extremity Diabetes Fistula Left below-knee amputee Paroxysmal atrial fibrillation Peripheral vascular disease Family History Father Aneurysm Father Parkinsons disease Social History Smoking Status: Former smoker Tobacco Type: cigarettes Substance Use Type: None Grafts History of Graft History of Graft?: No Exam Physical Exam Vital Signs: Temp Pulse Resp BP O2 Del Method 97.2 F L 81 20 95/82 L Room Air 04/14/22 14:05 04/14/22 14:05 04/14/22 14:05 04/14/22 14:05 04/14/22 14:05 Const General: cooperative, comfortable and no acute distress Nutritional Appearance: overweight Orientation: alert, awake and oriented x3 Lower/Upper Extremity Exam Vascular Exam-Pulses Right Brachial: Pulse Assessment Method: NIBP Objective Meds/Allergies Home Medications insulin aspart U-100 100 unit/mL subcutaneous solution 100 sliding scale dose subcut TIDWM 01/23/19 [History Confirmed 04/14/22] insulin glargine 100 unit/mL subcutaneous solution 6 units subcut DAILY 01/23/19[History Confirmed 04/14/22] latanoprost 0.005 % eye drops 1 drp Eye-Both DAILY 01/23/19 [History Confirmed 04/14/22] prednisone 5 mg tablet 5 mg PO DAILY 01/23/19 [History Confirmed 04/14/22] sulfamethoxazole 400 mg-trimethoprim 80 mg tablet 1 tab PO 3XW 01/23/19 [History Confirmed 04/14/22] tacrolimus 1 mg capsule, immediate-release 2 cap PO BID 01/23/19 [History Confirmed 04/14/22] aspirin 81 mg tablet,delayed release 81 mg PO DAILY 12/30/21 [History Confirmed 04/14/22] atorvastatin 40 mg tablet (Lipitor) 40 mg PO DAILY 12/30/21 [History Confirmed 04/14/22] oxycodone 5 mg capsule 5 mg PO Q4H PRN Pain 12/30/21 [History Confirmed 04/14/22] polyethylene glycol 3350 17 gram/dose oral powder (Miralax) 17 g PO DAILY 12/30/21 [History Confirmed 04/14/22] torsemide 20 mg tablet 20 mg PO DIRECTED 12/30/21 [History Confirmed 04/14/22] warfarin 1 mg tablet 1 mg PO 3XW 12/30/21 [History Confirmed 04/14/22] warfarin 2 mg tablet 2 mg PO QTUTHSASU 12/30/21 [History Confirmed 04/14/22] potassium chloride 10 mEq tablet,extended release (Klor-Con) 10 meq PO DAILY 01/20/22 [History Confirmed 04/14/22] Allergies No Known Allergies Allergy (Unverified 01/20/19 08:48) Wound/Ulcer Sacrum: Type: Pressure/Injury Ulcer Pressure Ulcer/Injury Staging: Unstageable Bed Appearance: Beefy Red, Pavillion and Yellow Percent of Wound Bed Granulated/Red: 95 Percent of Devitalized: 5 Length (cm): 1.4 Width (cm): 0.8 Depth (cm): 1.5 CM Sq: 1.120 Surrounding Tissue Appearance: Hyperpigmented Surrounding Tissue Temp: Warm Drainage Amount: Moderate Drainage Description: Yellow Drainage Odor: No Odor Procedures Time Out: 2 Patient Identifiers, Correct Patient, Correct Side/Site, Correct Procedure and Safety Issues Reviewed Procedure: The sacral ulcer was not anesthetized with topical 2% lidocaine gel.? A curette was used to perform debridement for the removal of 1 sq cm? of devitalized tissue consisting of skin and slough.? Debridement was down to healthy bleeding tissue.? Estimated blood loss was minimal.? Hemostasis was achieved by applying pressure.? The sacral ulcer now appears about the same and the size remains the same.? The patient tolerated well. Results Height: 6 ft 4 in Assessment/Plan Assessment/Plan (1) Pressure ulcer of sacral region, unstageable: Code(s): L89.150 - Pressure ulcer of sacral region, unstageable Status: Chronic (2) Diabetes: Code(s): E11.9 - Type 2 diabetes mellitus without complications Status: Chronic (3) Limited mobility: Code(s): Z74.09 - Other reduced mobility Status: Chronic (4) Poor appetite: Code(s): R63.0 - Anorexia Status: Chronic (5) At high risk for skin breakdown: Code(s): Z91.89 - Other specified personal risk factors, not elsewhere classified Status: Chronic (6) Fecal incontinence: Code(s): R15.9 - Full incontinence of feces Status: Chronic Time spent with patient Time Spent With Patient (min): 15 Dictated By: Sadia Aguilar APRN DD/ 17 Signed By: <Electronically signed by DAVID Aguilar> 04/14/22 1419 [facility] Work Phone: [phone] NotePatient Outreach (KIMBERLY) ALEX ALMONTE ([id number]) 1945 [facility] Date Time Provider Department 04/02/22 VAN OLIVAREZ During your visit today, we recorded the following information about you: Allergies As of Date: 04/02/2022 Noted Allergy Reaction PYRIDOSTIGMINE BROMIDE 08/04/2021 8 - GI Upset Date Reviewed: 02/26/2022 Reviewed by: Braden Abel MA - Fully Assessed Visit Diagnosis:Screening for genitourinary condition [Z13.89] Order(s):URINALYSIS, REFLEX MICROSCOPIC [[id number]] Order #: [id number] Prescriptions as of 04/06/2022 - tacrolimus IR (PROGRAF) 1 mg capsule TAKE 2 CAPSULES BY MOUTH DAILY AT 6AM*Z94.0* - acetaminophen (TYLENOL EXTRA STRENGTH) 500 mg tablet Take 500 mg by mouth every 8 hours as needed. - sodium hypochlorite, Dakin's Half-Strength, (DAKIN'S SOLUTION) external solution Apply 0.5 mL to affected area every evening. - latanoprost (XALATAN) 0.005 % ophthalmic solution Use in both eyes daily at bedtime. - traMADol (ULTRAM) 50 mg tablet Take 50 mg by mouth every 6 hours as needed for pain. - atorvastatin (LIPITOR) 40 mg tablet Take 40 mg by mouth once daily. - warfarin (COUMADIN) 2 mg tablet Take 3 mg Wednesday, Wednesday, Wednesday and Wednesday. Take 2 mg Wednesday, and Wednesday. - insulin glargine (LANTUS SOLOSTAR, BASAGLAR KWIKPEN) 100 unit/mL (3 mL) Inject 17 Units subcutaneously once daily. - sulfamethoxazole-trimethoprim (SEPTRA) 400-80 mg per tablet Take by mouth. Take one (1) tablet M-W- - tacrolimus IR (PROGRAF) 1 mg capsule Take 1 capsule by mouth DAILY AT 6 PM. - insulin lispro 100 unit/mL injection Inject 6 Units subcutaneously three times daily before meals. Please give 6 units with meals three times daily plus additional sliding scale below as needed based on accuchecks Correctional Scale 2: For glucose result give insulin dose < 110 mg/dL: 0 units 111-150 mg/dL: 0 units 151-200 mg/dL: 2 units 201-250 mg/dL: 4 units 251-300 mg/dL: 6 units 301-350 mg/dL: 8 units 351-400 mg/dL: 10 units > 400 mg/dL: Give 10 units and notify provider - senna-docusate (SENNA-S) 8.6-50 mg per tablet Take 1 tablet by mouth twice daily. - polyethylene glycol 3350 (MIRALAX, GLYCOLAX) 17 gram packet Take 1 Packet by mouth once daily. Dissolve dose in 4 - 8 ounces of liquid and take as directed. - phosphorus (K PHOS NEUTRAL) 250 mg tablet 1 tablet by ORAL/FEEDING TUBE route twice daily. - ipratropium-albuterol (DUONEB) 0.5 mg-3 mg(2.5 mg base)/3 mL nebu Inhale 3 mL as instructed every 6 hours as needed for wheezing/shortness of breath. - oxyCODONE IR (ROXICODONE) 5 mg immediate release tablet 1-2 tablets by ORAL/FEEDING TUBE route every 3 hours as needed. - torsemide (DEMADEX) 20 mg tablet Take 1 tablet by mouth every other day. - nut.tx.gluc intol,lf,soy-fiber (BOOST GLUCOSE CONTROL) 0.07-0.8 gram-kcal/mL liqd Take 237 mL by mouth daily with dinner. - Food Supplement, Lactose-Free (ENSURE MAX PROTEIN) liqd Take 237 mL by mouth daily with breakfast. - OTC NUTRITIONAL SUPPLEMENT Take 237 mL by mouth daily with lunch. Magic Cup [place] with lunch - aspirin, enteric coated (ASPIRIN, ENTERIC COATED) 81 mg EC tablet Take 1 tablet by mouth once daily. - atorvastatin (LIPITOR) 40 mg tablet 1 tablet by ORAL/FEEDING TUBE route daily at bedtime. - predniSONE (DELTASONE) 5 mg tablet TAKE 1 TABLET BY MOUTH EVERY DAY Problem List As Of Date 04/02/2022 Noted Resolved ULCER OF LOWER LIMB, UNSPEC [L97.909] 02/24/2002 DIAB RENAL MANIF ADULT-UNCONTRLLD [E11.29, E11.*02/24/2002 Type 2 diabetes mellitus with diabetic neuropat*02/24/2002 DIABETES UNCOMPL ADULT-UNCONTRLLED [[id number]] 02/24/2002 KIDNEY TRANSPLANT STATUS [Z94.0] 09/07/2003 PROPHYLACTIC IMMUNOTHERAPY [Z29.8] 07/30/2006 NURSING HOME STEROIDS [BAK5080] 07/30/2006 VITAMIN D DEFICIENCY NOS [E55.9] 09/07/2008 MIXED HYPERLIPIDEMIA [E78.2] 09/07/2008 SUMMARY 01/04/2015 ILIANA (acute kidney injury) (HCC) [N17.9] 01/04/2015 Diabetes mellitus (HCC) [E11.9] 01/04/2015 Cellulitis [L03.90] 01/04/2015 Diarrhea [R19.7] 01/04/2015 VTE (venous thromboembolism) [I82.90] 09/24/2021 CAD (coronary artery disease) [I25.10] 2017 Paroxysmal atrial fibrillation (HCC) [I48.0] HTN (hypertension) [I10] SA node dysfunction (HCC) [I49.5] Altered tissue perfusion [R09.89] 09/30/2021 PAD (peripheral artery disease) (HCC) [I73.9] 09/26/2021 Osteomyelitis (HCC) [M86.9] 11/29/2021 Class 1 obesity due to excess calories with ser*11/29/2021 Mixed hyperlipidemia due to type 2 diabetes myles*11/29/2021 Type 2 diabetes mellitus with diabetic peripher*11/29/2021 Atherosclerosis of buckland artery of extremity w*11/29/2021 Malnutrition of moderate degree (HCC) [E44.0] 12/01/2021 Dermatitis associated with moisture [L30.8] 12/04/2021 Encounter Status:Closed by CONCETTA HOBBS on 04/06/22[facility] 03-30-2022 Miscellaneous Notes* Telephone Encounter - Van Olivarez APRN.CNP - 03/30/2022 12:16 PM EST The following approved medication requests have been transmitted electronically. Requested Prescriptions Signed Prescriptions Disp Refills tacrolimus IR (PROGRAF) 1 mg capsule 180 capsule 4 Sig: TAKE 2 CAPSULES BY MOUTH DAILY AT 6AM*Z94.0* Authorizing Provider: VAN OLIVAREZ APRN.CNP * Telephone Encounter - Katina Duque - 03/23/2022 11:30 AM EST Patient's request for medication is as follows: Requested Prescriptions Pending Prescriptions Disp Refills tacrolimus IR (PROGRAF) 1 mg capsule [Pharmacy Med Name: TACROLIMUS 1 MG CAPSULE (IR)] 180 capsule 4 Sig: TAKE 2 CAPSULES BY MOUTH DAILY AT 6AM*Z94.0* Please approve the above prescription(s) to electronically send to pharmacy. Katina Duque documented in [facility]02[facility]23 Progress note Author Sadia Aguilar [facility] March 24, 2022 3:00pm Note Date/Time March 24, 2022 2 :59pm [facility] [address] [place] [address] Wound Center Provider Note Signed Patient: Alex Almonte MR#: [id number] : 1945 Acct:[id number] Age/Sex: 76 / M Copies to: DO Sadia Whyte APRN~ HPI Date of Visit Date of Visit: Date of Service: 03/24/2022 Time of Service: 14:58 Narrative HPI: 12/30/21 Alex is a 76 year old male presenting to [facility] wound care for aninitial visit for eval and treatment of a sacral/coccyx area pressure ulcer. He resides at [facility]. There is an MOTOR BUILDER WINDER present for the visit. Medicalhoney gel will be use for debridement and antimicrobial purposes. He will need to offload pressure and have a well balanced diet that is somewhat higher in protein and amino acids and lower in inflammation foods. Labs were ordered to check his nutrition status. Alex will be seen back in a few weeks. 01/20/22 orders are more or less the same, an xray was ordered to check for bone infection d/t the depth change, we had to reorder labs since it appears that those were never done or at least they were not faxed to us as requested, he mayneed a surgical consult depending on what the xray shows, he needed cleaned up today from a large BM- this was done by 3 nursing staff members, follow up in few weeks 02/10/22 orders kept the same, xray result was negative for infection in the bone, will probably repeat this at the next visit if no improvement, nutrition labs are low and so dietitian consult was ordered, still might need surgery consult, again came to appt with large BM in his brief that was cleaned by this video games storywriter as well as another nursing staff member, few weeks to follow up 03/03/22 orders changed to iodoflex, ulcer is better today, 3 week appt, do not see notes as to what the dietitian did for the low lab values 03/24/22 some improvement, orders changed to collagen silver, 3-4 week appt Subjective Pain Coccyx: Pain Description: Intermittent Pain Intensity: 0 Pain Management Techniques Other/Comment: Describes as minor Wound/Ulcer History When did wound start?: 4 weeks ago- from initial visit here Mode of Arrival/ Threat Monitoring Analyst: Facility vehicle Assistive Device Used Today: Wheelchair and Indra Lives with:: Care/Nursing Facility Appetite Description: Within Normal Limits Who helps w/ dressing change?: Nursing Facility Why Do You Need Help?: Can't Reach Ulcer, Limited mobility and Taxing effort to leave home Smoking Status: Former smoker [facility] Medical History (Updated 03/03/22 @ 14:41 by Sadia Copsey, DENTAL EQUIPMENT REPAIRER) Below-knee amputation of right lower extremity Diabetes Fistula Left below-knee amputee Paroxysmal atrial fibrillation Peripheral vascular disease Family History Father Aneurysm Father Parkinsons disease Social History Smoking Status: Former smoker Tobacco Type: cigarettes Substance Use Type: None Grafts History of Graft History of Graft?: No Exam Physical Exam Vital Signs: Temp Pulse Resp BP O2 Del Method 97.9 F 76 18 89/57 L Room Air 03/24/22 14:48 03/24/22 14:48 03/24/22 14:48 03/24/22 14:48 03/03/22 14:28 Const General: cooperative, comfortable and no acute distress Nutritional Appearance: overweight Orientation: alert, awake and oriented x3 Lower/Upper Extremity Exam Vascular Exam-Pulses Right Brachial: Pulse Assessment Method: NIBP Objective Meds/Allergies Home Medications insulin aspart U-100 100 unit/mL subcutaneous solution 100 sliding scale dose subcut TIDWM 01/23/19 [History Confirmed 03/24/22] insulin glargine 100 unit/mL subcutaneous solution 6 units subcut DAILY 01/23/19[History Confirmed 03/24/22] latanoprost 0.005 % eye drops 1 drp Eye-Both DAILY 01/23/19 [History Confirmed 03/24/22] prednisone 5 mg tablet 5 mg PO DAILY 01/23/19 [History Confirmed 03/24/22] sulfamethoxazole 400 mg-trimethoprim 80 mg tablet 1 tab PO 3XW 01/23/19 [History Confirmed 03/24/22] tacrolimus 1 mg capsule, immediate-release 2 cap PO BID 01/23/19 [History Confirmed 03/24/22] aspirin 81 mg tablet,delayed release 81 mg PO DAILY 12/30/21 [History Confirmed 03/24/22] atorvastatin 40 mg tablet (Lipitor) 40 mg PO DAILY 12/30/21 [History Confirmed 03/24/22] oxycodone 5 mg capsule 5 mg PO Q4H PRN Pain 12/30/21 [History Confirmed 03/24/22] polyethylene glycol 3350 17 gram/dose oral powder (Miralax) 17 g PO DAILY 12/30/21 [History Confirmed 03/24/22] torsemide 20 mg tablet 20 mg PO DIRECTED 12/30/21 [History Confirmed 03/24/22] warfarin 1 mg tablet 1 mg PO 3XW 12/30/21 [History Confirmed 03/24/22] warfarin 2 mg tablet 2 mg PO QTUTHSASU 12/30/21 [History Confirmed 03/24/22] potassium chloride 10 mEq tablet,extended release (Klor-Con) 10 meq PO DAILY 01/20/22 [History Confirmed 03/24/22] Allergies No Known Allergies Allergy (Unverified 01/20/19 08:48) Wound/Ulcer Sacrum: Type: Pressure/Injury Ulcer Pressure Ulcer/Injury Staging: Unstageable Bed Appearance: Beefy Red, Pavillion and Yellow Percent of Wound Bed Granulated/Red: 90 Percent of Devitalized: 10 Length (cm): 1.5 Width (cm): 1.2 Depth (cm): 1.9 CM Sq: 1.800 Surrounding Tissue Appearance: Hyperpigmented and Macerated Surrounding Tissue Temp: Warm Drainage Amount: Moderate Drainage Description: Yellow Drainage Odor: No Odor Procedures Time Out: 2 Patient Identifiers, Correct Patient, Correct Side/Site, Correct Procedure and Safety Issues Reviewed Procedure: The sacral ulcer was not anesthetized with topical 2% lidocaine gel.? A curette was used to perform debridement for the removal of 1.8 sq cm? of devitalized tissue consisting of skin and slough.? Debridement was down to healthy bleeding tissue.? Estimated blood loss was minimal.? Hemostasis was achieved by applying pressure.? The sacral ulcer now appears about the same and the size remains the same.? The patient tolerated well. Results Height: 6 ft 4 in Assessment/Plan Assessment/Plan (1) Pressure ulcer of sacral region, unstageable: Code(s): L89.150 - Pressure ulcer of sacral region, unstageable Status: Chronic (2) Diabetes: Code(s): E11.9 - Type 2 diabetes mellitus without complications Status: Chronic (3) Limited mobility: Code(s): Z74.09 - Other reduced mobility Status: Chronic (4) Poor appetite: Code(s): R63.0 - Anorexia Status: Chronic (5) At high risk for skin breakdown: Code(s): Z91.89 - Other specified personal risk factors, not elsewhere classified Status: Chronic (6) Fecal incontinence: Code(s): R15.9 - Full incontinence of feces Status: Chronic Time spent with patient Time Spent With Patient (min): 15 Dictated By: Sadia Aguilar APRN DD/ 1458 Signed By: <Electronically signed by DAVID Aguilar> 03/24/22 1500 [facility] Work Phone: 1(135) 456-301101-17-2023 Progress note Author Sadia Aguilar [facility] March 03, 2022 2:41pm Note Date/Time March 03, 2022 2 :41pm [facility] [address] [place] [address] Wound Center Provider Note Signed Patient: Alex Almonte MR#: [id number] : 1945 Acct:[id number] Age/Sex: 76 / M Copies to: DO Sadia Whyte APRN~ HPI Date of Visit Date of Visit: Date of Service: 03/03/2022 Time of Service: 14:38 Narrative HPI: 12/30/21 Alex is a 76 year old male presenting to [facility] wound care for aninitial visit for eval and treatment of a sacral/coccyx area pressure ulcer. He resides at [facility]. There is an MOTOR BUILDER WINDER present for the visit. Medicalhoney gel will be use for debridement and antimicrobial purposes. He will need to offload pressure and have a well balanced diet that is somewhat higher in protein and amino acids and lower in inflammation foods. Labs were ordered to check his nutrition status. Alex will be seen back in a few weeks. 01/20/22 orders are more or less the same, an xray was ordered to check for bone infection d/t the depth change, we had to reorder labs since it appears that those were never done or at least they were not faxed to us as requested, he mayneed a surgical consult depending on what the xray shows, he needed cleaned up today from a large BM- this was done by 3 nursing staff members, follow up in few weeks 02/10/22 orders kept the same, xray result was negative for infection in the bone, will probably repeat this at the next visit if no improvement, nutrition labs are low and so dietitian consult was ordered, still might need surgery consult, again came to appt with large BM in his brief that was cleaned by this video games storywriter as well as another nursing staff member, few weeks to follow up 03/03/22 orders changed to iodoflex, ulcer is better today, 3 week appt, do not see notes as to what the dietitian did for the low lab values Subjective Pain Coccyx: Pain Description: Intermittent Pain Intensity: 0 Pain Management Techniques Other/Comment: barely any pain Wound/Ulcer History When did wound start?: 4 weeks ago- from initial visit here Mode of Arrival/ Threat Monitoring Analyst: Facility vehicle Assistive Device Used Today: Wheelchair and Indra Lives with:: Care/Nursing Facility Appetite Description: Within Normal Limits Who helps w/ dressing change?: Nursing Facility Why Do You Need Help?: Can't Reach Ulcer, Limited mobility and Taxing effort to leave home Smoking Status: Former smoker [facility] Medical History (Updated 03/03/22 @ 14:41 by Sadia Aguilar APRN) Below-knee amputation of right lower extremity Diabetes Fistula Left below-knee amputee Paroxysmal atrial fibrillation Peripheral vascular disease Family History Father Aneurysm Father Parkinsons disease Social History Smoking Status: Former smoker Tobacco Type: cigarettes Substance Use Type: None Grafts History of Graft History of Graft?: No Exam Physical Exam Vital Signs: Temp Pulse Resp BP O2 Del Method 97.7 F 71 18 69/40 L Room Air 03/03/22 14:28 03/03/22 14:28 03/03/22 14:28 03/03/22 14:28 03/03/22 14:28 Const General: cooperative, comfortable and no acute distress Nutritional Appearance: overweight Orientation: alert, awake and oriented x3 Lower/Upper Extremity Exam Vascular Exam-Pulses Right Brachial: Pulse Assessment Method: NIBP Objective Meds/Allergies Home Medications insulin aspart U-100 100 unit/mL subcutaneous solution 100 sliding scale dose subcut TIDWM 01/23/19 [History Confirmed 03/03/22] insulin glargine 100 unit/mL subcutaneous solution 6 units subcut DAILY 01/23/19[History Confirmed 03/03/22] latanoprost 0.005 % eye drops 1 drp Eye-Both DAILY 01/23/19 [History Confirmed 03/03/22] prednisone 5 mg tablet 5 mg PO DAILY 01/23/19 [History Confirmed 03/03/22] sulfamethoxazole 400 mg-trimethoprim 80 mg tablet 1 tab PO 3XW 01/23/19 [History Confirmed 03/03/22] tacrolimus 1 mg capsule, immediate-release 2 cap PO BID 01/23/19 [History Confirmed 03/03/22] aspirin 81 mg tablet,delayed release 81 mg PO DAILY 12/30/21 [History Confirmed 03/03/22] atorvastatin 40 mg tablet (Lipitor) 40 mg PO DAILY 12/30/21 [History Confirmed 03/03/22] oxycodone 5 mg capsule 5 mg PO Q4H PRN Pain 12/30/21 [History Confirmed 03/03/22] polyethylene glycol 3350 17 gram/dose oral powder (Miralax) 17 g PO DAILY 12/30/21 [History Confirmed 03/03/22] torsemide 20 mg tablet 20 mg PO DIRECTED 12/30/21 [History Confirmed 03/03/22] warfarin 1 mg tablet 1 mg PO 3XW 12/30/21 [History Confirmed 03/03/22] warfarin 2 mg tablet 2 mg PO QTUTHSASU 12/30/21 [History Confirmed 03/03/22] potassium chloride 10 mEq tablet,extended release (Klor-Con) 10 meq PO DAILY 01/20/22 [History Confirmed 03/03/22] Allergies No Known Allergies Allergy (Unverified 01/20/19 08:48) Wound/Ulcer Sacrum: Type: Pressure/Injury Ulcer Pressure Ulcer/Injury Staging: Unstageable Bed Appearance: Pavillion and Yellow Percent of Wound Bed Granulated/Red: 90 Percent of Devitalized: 10 Length (cm): 2.2 Width (cm): 1.8 Depth (cm): 1.9 CM Sq: 3.960 Surrounding Tissue Appearance: Pavillion, Hyperpigmented and Satellite lesions Surrounding Tissue Temp: Warm Drainage Amount: Large Drainage Description: Yellow Drainage Odor: No Odor Procedures Time Out: 2 Patient Identifiers, Correct Patient, Correct Side/Site, Correct Procedure and Safety Issues Reviewed Procedure: The sacral ulcer was not anesthetized with topical 2% lidocaine gel. A curette was used to perform debridement for the removal of 3 cm? of devitalized tissue consisting of skin and slough. Debridement was down to healthy bleeding tissue. Estimated blood loss was minimal. Hemostasis was achieved by applying pressure. The sacral ulcer now appears about the same and the size remains the same. The patient tolerated well. Results Height: 6 ft 4 in Assessment/Plan Assessment/Plan (1) Pressure ulcer of sacral region, unstageable: Code(s): L89.150 - Pressure ulcer of sacral region, unstageable Status: Chronic (2) Diabetes: Code(s): E11.9 - Type 2 diabetes mellitus without complications Status: Chronic (3) Limited mobility: Code(s): Z74.09 - Other reduced mobility Status: Chronic (4) Poor appetite: Code(s): R63.0 - Anorexia Status: Chronic (5) At high risk for skin breakdown: Code(s): Z91.89 - Other specified personal risk factors, not elsewhere classified Status: Chronic (6) Fecal incontinence: Code(s): R15.9 - Full incontinence of feces Status: Chronic (7) Candidiasis: Code(s): B37.9 - Candidiasis, unspecified Status: Resolved Time spent with patient Time Spent With Patient (min): 15 Dictated By: Sadia Aguilar APRN DD/ 1438 Signed By: <Electronically signed by DAVID Aguilar> 03/03/22 1441 [facility] Work Phone: 1(449) 543-457401-13-2023 Miscellaneous Notes* Telephone Encounter - RAUL Davidson - 02/27/2022 10:24 AM EST Patient phones requesting refills as follows: Per pts sister takes 1 mg in AM and 1 mg in PM Requested Prescriptions Pending Prescriptions Disp Refills tacrolimus IR (PROGRAF) 1 mg capsule Sig: Take 2 capsules by mouth DAILY (6 AM). Please review and advise. RAUL Davidson documented in this encounterL[facility]01-12-2023 NoteHNO ID: [id number] Author: Hina Peterson MD Service: ? Author Type: Physician Type: Progress Notes Filed: 02/26/2022 4:31 PM Note Text: [facility] DEPARTMENT OF VASCULAR SURGERY OUTPATIENT VISIT DATE February 26, 2022 OUTPATIENT VISIT TYPE ESTABLISHED SERVICE DATE: 02/26/2022 SERVICE TIME: 4:26 PM PRIMARY CARE PHYSICIAN: Devon Moreira DO HISTORY OF PRESENT ILLNESS: Mr. Almonte is a 76 year old male who presents today for a vascular surgery follow-up visit . He underwent right BKA and is here for his postop visit. He has been in half-way since then and has been recovering from his acute on chronic congestive heart failure. His wound has largely been healing without any issues and the maxwell and sutures were removed at the nursing facility. He comes here with a lateral wound eschar. He denies any fevers, chills, or any drainage. He is on anticoagulation. 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 Patient on mycophenolate mofetil , cellcept and prednisone Mixed hyperlipidemia due to type 2 diabetes mellitus ([facility]) 11/29/2021 Osteomyelitis ([facility]) 11/29/2021 Paroxysmal atrial fibrillation ([facility]) Renal transplant, status post SA node dysfunction ([facility]) s/p pacemaker Type 2 diabetes mellitus with diabetic neuropathy, with long-term current use of insulin ([facility]) 02/24/2002 PAST SURGICAL HISTORY Procedure Laterality Date ANGIOPLASTY PCI drug-eluting stent second obtuse marginal branch of left circumflex FOOT SURGERY HX HERNIA REPAIR HX PAST SURGICAL HISTORY OF renal transplant SOCIAL HISTORY Social History Tobacco Use Smoking status: Former Packs/day: 1.00 Years: 8.00 Pack years: 8.00 Types: Cigarettes Quit date: 02/15/1975 Years since quittin.0 Smokeless tobacco: Never Substance Use Topics Alcohol use: Yes Comment: 1 beer per year Drug use: Never MEDICATIONS: acetaminophen (TYLENOL EXTRA STRENGTH) 500 mg tablet Take 500 mg by mouth every 8 hours as needed. sodium hypochlorite, Dakin's Half-Strength, (DAKIN'S SOLUTION) external solution Apply 0.5 mL to affected area every evening. latanoprost (XALATAN) 0.005 % ophthalmic solution Use in both eyes daily at bedtime. traMADol (ULTRAM) 50 mg tablet Take 50 mg by mouth every 6 hours as needed for pain. atorvastatin (LIPITOR) 40 mg tablet Take 40 mg by mouth once daily. warfarin (COUMADIN) 2 mg tablet Take 3 mg Wednesday, Wednesday, Wednesday and Wednesday. Take 2 mg Wednesday, and Wednesday. insulin glargine (LANTUS SOLOSTAR, BASAGLAR KWIKPEN) 100 unit/mL (3 mL) Inject 17 Units subcutaneously once daily. sulfamethoxazole-trimethoprim (SEPTRA) 400-80 mg per tablet Take by mouth. Take one (1) tablet -- tacrolimus IR (PROGRAF) 1 mg capsule Take 2 capsules by mouth DAILY (6 AM). tacrolimus IR (PROGRAF) 1 mg capsule Take 1 capsule by mouth DAILY AT 6 PM. insulin lispro 100 unit/mL injection Inject 6 Units subcutaneously three times daily before meals. Please give 6 units with meals three times daily plus additional sliding scale below as needed based on accuchecks Correctional Scale 2: For glucose result give insulin dose < 110 mg/dL: 0 units 111-150 mg/dL: 0 units 151-200 mg/dL: 2 units 201-250 mg/dL: 4 units 251-300 mg/dL: 6 units 301-350 mg/dL: 8 units 351-400 mg/dL: 10 units > 400 mg/dL: Give 10 units and notify provider senna-docusate (SENNA-S) 8.6-50 mg per tablet Take 1 tablet by mouth twice daily. polyethylene glycol 3350 (MIRALAX, GLYCOLAX) 17 gram packet Take 1 Packet by mouth once daily. Dissolve dose in 4 - 8 ounces of liquid and take as directed. phosphorus (K PHOS NEUTRAL) 250 mg tablet 1 tablet by ORAL/FEEDING TUBE route twice daily. ipratropium-albuterol (DUONEB) 0.5 mg-3 mg(2.5 mg base)/3 mL nebu Inhale 3 mL as instructed every 6 hours as needed for wheezing/shortness of breath. torsemide (DEMADEX) 20 mg tablet Take 1 tablet by mouth every other day. nut.tx.gluc intol,lf,soy-fiber (BOOST GLUCOSE CONTROL) 0.07-0.8 gram-kcal/mL liqd Take 237 mL by mouth daily with dinner. OTC NUTRITIONAL SUPPLEMENT Take 237 mL by mouth daily with lunch. Magic Cup [place] with lunch aspirin, enteric coated (ASPIRIN, ENTERIC COATED) 81 mg EC tablet Take 1 tablet by mouth once daily. predniSONE (DELTASONE) 5 mg tablet TAKE 1 TABLET BY MOUTH EVERY DAY oxyCODONE IR (ROXICODONE) 5 mg immediate release tablet 1-2 tablets by ORAL/FEEDING TUBE route every 3 hours as needed. Food Supplement, Lactose-Free (ENSURE MAX (more content not included)... [facility]01-12-2023 History of Present illness Narrative* Hina Peterson MD - 02/26/2022 4:25 PM EST Images from the original note were not included. [facility] DEPARTMENT OF VASCULAR SURGERY OUTPATIENT VISIT DATE February 26, 2022 OUTPATIENT VISIT TYPE ESTABLISHED SERVICE DATE: 02/26/2022 SERVICE TIME: 4:26 PM PRIMARY CARE PHYSICIAN: Devon Moreira DO HISTORY OF PRESENT ILLNESS: Mr. Almonte is a 76 year old male who presents today for a vascular surgery follow-up visit . He underwent right BKA and is here for his postop visit. He has been in half-way since then and has been recovering from his acute on chronic congestive heart failure. His wound has largely been healing without any issues and the maxwell and sutures were removed at the [facility] facility. He comes here with a lateral wound eschar. He denies any fevers, chills, or any drainage. He is on anticoagulation. 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 Patient on mycophenolate mofetil ,cellcept and prednisone 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) 11/29/2021 Osteomyelitis (HCC) 11/29/2021 Paroxysmal atrial fibrillation ([facility]) Renal transplant, status post SA node dysfunction ([facility]) s/p pacemaker Type 2 diabetes mellitus with diabetic neuropathy, with long-term current use of insulin (HCC) 02/24/2002 PAST SURGICAL HISTORY Procedure Laterality Date ANGIOPLASTY PCI drug-eluting stent second obtuse marginal branch of left circumflex FOOT SURGERY HX HERNIA REPAIR HX PAST SURGICAL HISTORY OF renal transplant SOCIAL HISTORY Social History Tobacco Use Smoking status: Former Packs/day: 1.00 Years: 8.00 Pack years: 8.00 Types: Cigarettes Quit date: 02/15/1975 Years since quittin.0 Smokeless tobacco: Never Substance Use Topics Alcohol use: Yes Comment: 1 beer per year Drug use: Never MEDICATIONS: acetaminophen (TYLENOL EXTRA STRENGTH) 500 mg tablet Take 500 mg by mouth every 8 hours as needed. sodium hypochlorite, Dakin's Half-Strength, (DAKIN'S SOLUTION) external solution Apply 0.5 mL to affected area every evening. latanoprost (XALATAN) 0.005 % ophthalmic solution Use in both eyes daily at bedtime. traMADol (ULTRAM) 50 mg tablet Take 50 mg by mouth every 6 hours as needed for pain. atorvastatin (LIPITOR) 40 mg tablet Take 40 mg by mouth once daily. warfarin (COUMADIN) 2 mg tablet Take 3 mg Wednesday, Wednesday, Wednesday and Wednesday. Take 2 mg Wednesday, and Wednesday. insulin glargine (LANTUS SOLOSTAR, BASAGLAR KWIKPEN) 100 unit/mL (3 mL) Inject 17 Units subcutaneously once daily. sulfamethoxazole-trimethoprim (SEPTRA) 400-80 mg per tablet Take by mouth. Take one (1) tablet -- tacrolimus IR (PROGRAF) 1 mg capsule Take 2 capsules by mouth DAILY (6 AM). tacrolimus IR (PROGRAF) 1 mg capsule Take 1 capsule by mouth DAILY AT 6 PM. insulin lispro 100 unit/mL injection Inject 6 Units subcutaneously three times daily before meals. Please give 6 units with meals three times daily plus additional sliding scale below as needed basedon accuchecks Correctional Scale 2: For glucose result give insulin dose < 110 mg/dL: 0 units 111-150 mg/dL: 0 units 151-200 mg/dL: 2 units 201-250 mg/dL: 4 units 251-300 mg/dL: 6 units 301-350 mg/dL: 8 units 351-400 mg/dL: 10 units > 400 mg/dL: Give 10 units and notify provider senna-docusate (SENNA-S) 8.6-50 mg per tablet Take 1 tablet by mouth twice daily. polyethylene glycol 3350 (MIRALAX, GLYCOLAX) 17 gram packet Take 1 Packet by mouth once daily. Dissolve dose in 4 - 8 ounces of liquid and take as directed. phosphorus (K PHOS NEUTRAL) 250 mg tablet 1 tablet by ORAL/FEEDING TUBE route twice daily. ipratropium-albuterol (DUONEB) 0.5 mg-3 mg(2.5 mg base)/3 mL nebu Inhale 3 mL as instructed every 6hours as needed for wheezing/shortness of breath. torsemide (DEMADEX) 20 mg tablet Take 1 tablet by mouth every other day. nut.tx.gluc intol,lf,soy-fiber (BOOST GLUCOSE CONTROL) 0.07-0.8 gram-kcal/mL liqd Take 237 mL by mouth daily with dinner. OTC NUTRITIONAL SUPPLEMENT Take 237 mL by mouth daily with lunch. Magic Cup [place] with lunch aspirin, enteric coated (ASPIRIN, ENTERIC COATED) 81 mg EC tablet Take 1 tablet by mouth once daily. predniSONE (DELTASONE) 5 mg tablet TAKE 1 TABLET BY MOUTH EVERY DAY oxyCODONE IR (ROXICODONE) 5 mg immediate release tablet 1-2 tablets by ORAL/FEEDING TUBE route every 3 hours as needed. Food Supplement, Lactose-Free (ENSURE MAX PROTEIN) liqd Take 237 mL by mouth daily with breakfast. (Patient not taking: Reported on 02/26/2022) atorvastatin (LIPITOR) 40 mg tablet 1 tablet by ORAL/FEEDING TUBE route daily at bedtime. (Patient not taking: Reported on 02/26/2022) ALLERGIES: ALLERGIES Allergen Reactions Pyridostigmine Brom* GI Upset PHYSICAL EXAM: BP 88/75 Pulse 75 Temp (!) 35.9 C (96.6 F) (Oral) General: Alert and oriented, No acute distress Integumentary: Right below-knee amputation incision well-healed except for lateral quarter size eschar HEENT: EOM, pupils equal, round and reactive. Cardiovascular: Faint heart sounds no audible murmur Lungs: Normal breath sounds, no wheezes or crackles. Abdomen: Soft, non-tender, no rigidity. Extremities: Right BKA wound as noted above with quarter size eschar no purulence no erythema. LeftAKA incision well-healed Neurological: Normal cognition and motor skills. Vascular: Carotid Pulse Right: Normal - Left: Normal Radial Pulse Right: Normal - Left: Normal Diagnostic tests reviewed for today's visit: None IMPRESSION: Mr. Almonte is a 76 year old male who presents for his right BKA wound incision follow-up. The right lateral aspect of the wound eschar was debrided sharply in clinic to healthy bleeding base PLAN and RECOMMENDATIONS: Continue wet-to-dry's daily the site of the right BKA wound Follow-up in 2 months to check on progress of wound healing SIGNATURE: Hina Peterson MD, MD PATIENT NAME: Alex Almonte DATE: February 26, 2022 TIME: 4:26 PM documented in [facility]23 Miscellaneous Notes* Telephone Encounter - Gwen Beard - 02/19/2022 12:22 PM ESTSummary: rescheduled appt Alex Almonte appointments have been scheduled accordingly. Patient has been notified via telephone and appointment schedule sent via My Chart Gwen Chirag February 19, 2022 12:22 PM * Telephone Encounter - Yumiko Denise - 02/18/2022 3:11 PM EST Reason for call: Mr. Almonte would like to request a sooner appointment with Dr. Peterson than 04/13/2022. Contact Name (if not the patient) Alex's nurse Home and cell number(Ask for Alex's nurse) [phone] Diagnosis 4 mo f/u wound check Yumiko Mcclain documented in this encounterLicking [facility]01-05-2023 Miscellaneous Notes* Telephone Encounter - Augusta Medrano RN - 02/19/2022 11:11 AM EST Alex Almonte's nursing facility, [facility], called regarding elevated tacrolimus level (23.9). Spoke with bedside nurse, mukul Enriquez. Level is from last week- unable to clearly determine if medications were held prior to lab work. Reviewed with nurse morning labs should occur prior to lab draws. Patient is scheduled for repeat labs tomorrow. Will assess new level. Augusta Medrano RN documented in this encounterLicking [facility]01-04-2023 Miscellaneous Notes* Telephone Encounter - Martina Rossi MD - 02/18/2022 10:35 AM EST Inappropriate request sent to me (saw patient while admitted inpatient on internal medicine). Refills should be sent to transplant nephrology * Telephone Encounter - Mercedez Tavares MA - 02/18/2022 8:48 AM EST Pharmacy electronically requesting refills as follows: Requested Prescriptions Pending Prescriptions Disp Refills tacrolimus IR (PROGRAF) 1 mg capsule Sig: Take 2 capsules by mouth DAILY (6 AM). Please review and advise. Mercedez Tavares MA documented in this encounterLicking [facility] Hospital12-27-2022 Progress note Author Sadia Aguilar [facility] February 10, 2022 3:47pm Note Date/Time February 10, 2022 3:47pm [facility] [address] [place] [address] Wound Center Provider Note Signed Patient: Alex Almonte MR#: [id number] : 1945 Acct:[id number] Age/Sex: 76 / M Copies to: DO Sadia Whyte APRN~ HPI Date of Visit Date of Visit: Date of Service: 02/10/2022 Time of Service: 15:44 Narrative HPI: 12/30/21 Alex is a 76 year old male presenting to [facility] wound care for aninitial visit for eval and treatment of a sacral/coccyx area pressure ulcer. He resides at [facility]. There is an MOTOR BUILDER WINDER present for the visit. Medicalhoney gel will be use for debridement and antimicrobial purposes. He will need to offload pressure and have a well balanced diet that is somewhat higher in protein and amino acids and lower in inflammation foods. Labs were ordered to check his nutrition status. Alex will be seen back in a few weeks. 01/20/22 orders are more or less the same, an xray was ordered to check for bone infection d/t the depth change, we had to reorder labs since it appears that those were never done or at least they were not faxed to us as requested, he mayneed a surgical consult depending on what the xray shows, he needed cleaned up today from a large BM- this was done by 3 nursing staff members, follow up in few weeks 02/10/22 orders kept the same, xray result was negative for infection in the bone, will probably repeat this at the next visit if no improvement, nutrition labs are low and so dietitian consult was ordered, still might need surgery consult, again came to appt with large BM in his brief that was cleaned by this video games storywriter as well as another nursing staff member, few weeks to follow up Subjective Pain Coccyx: Pain Description: Intermittent Pain Intensity: 0 Wound/Ulcer History When did wound start?: 4 weeks ago- from initial visit here Mode of Arrival/ Threat Monitoring Analyst: Facility vehicle Assistive Device Used Today: Wheelchair and Indra Lives with:: Care/Nursing Facility Appetite Description: Within Normal Limits Who helps w/ dressing change?: Nursing Facility Why Do You Need Help?: Can't Reach Ulcer, Limited mobility and Taxing effort to leave home Smoking Status: Former smoker [facility] Medical History (Updated 01/20/22 @ 14:21 by Sadia Aguilar APRN) Below-knee amputation of right lower extremity Diabetes Fistula Left below-knee amputee Paroxysmal atrial fibrillation Peripheral vascular disease Family History Father Aneurysm Father Parkinsons disease Social History Smoking Status: Former smoker Tobacco Type: cigarettes Substance Use Type: None Grafts History of Graft History of Graft?: No Exam Physical Exam Vital Signs: Temp Pulse Resp BP O2 Del Method 97.2 F L 68 20 116/66 Room Air 02/10/22 15:28 02/10/22 15:28 02/10/22 15:28 02/10/22 15:28 02/10/22 15:28 Const General: cooperative, comfortable and no acute distress Nutritional Appearance: overweight Orientation: alert, awake and oriented x3 Lower/Upper Extremity Exam Vascular Exam-Pulses Right Radial: Pulse Assessment Method: NIBP Objective Meds/Allergies Home Medications insulin aspart U-100 100 unit/mL subcutaneous solution 100 sliding scale dose subcut TIDWM 01/23/19 [History Confirmed 01/20/22] insulin glargine 100 unit/mL subcutaneous solution 6 units subcut DAILY 01/23/19[History Confirmed 12/30/21] latanoprost 0.005 % eye drops 1 drp Eye-Both DAILY 01/23/19 [History Confirmed 12/30/21] prednisone 5 mg tablet 5 mg PO DAILY 01/23/19 [History Confirmed 01/20/22] sulfamethoxazole 400 mg-trimethoprim 80 mg tablet 1 tab PO 3XW 01/23/19 [History Confirmed 01/20/22] tacrolimus 1 mg capsule, immediate-release 2 cap PO BID 01/23/19 [History Confirmed 01/20/22] aspirin 81 mg tablet,delayed release 81 mg PO DAILY 12/30/21 [History Confirmed 01/20/22] atorvastatin 40 mg tablet (Lipitor) 40 mg PO DAILY 12/30/21 [History Confirmed 01/20/22] oxycodone 5 mg capsule 5 mg PO Q4H PRN Pain 12/30/21 [History Confirmed 01/20/22] polyethylene glycol 3350 17 gram/dose oral powder (Miralax) 17 g PO DAILY 12/30/21 [History Confirmed 01/20/22] torsemide 20 mg tablet 20 mg PO DIRECTED 12/30/21 [History Confirmed 01/20/22] warfarin 1 mg tablet 1 mg PO 3XW 12/30/21 [History Confirmed 01/20/22] warfarin 2 mg tablet 2 mg PO QTUTHSASU 12/30/21 [History Confirmed 01/20/22] potassium chloride 10 mEq tablet,extended release (Klor-Con) 10 meq PO DAILY 01/20/22 [History Confirmed 01/20/22] Allergies No Known Allergies Allergy (Unverified 01/20/19 08:48) Wound/Ulcer Sacrum: Type: Pressure/Injury Ulcer Pressure Ulcer/Injury Staging: Unstageable Bed Appearance: Pavillion and Yellow Percent of Wound Bed Granulated/Red: 90 Percent of Devitalized: 10 Length (cm): 2.5 Width (cm): 2.3 Depth (cm): 2.1 CM Sq: 5.750 Surrounding Tissue Appearance: Pavillion, Hyperpigmented and Satellite lesions Surrounding Tissue Temp: Warm Drainage Amount: Large Drainage Description: Yellow Drainage Odor: No Odor Results Height: 6 ft 4 in Assessment/Plan Assessment/Plan (1) Pressure ulcer of sacral region, unstageable: Code(s): L89.150 - Pressure ulcer of sacral region, unstageable Status: Chronic (2) Diabetes: Code(s): E11.9 - Type 2 diabetes mellitus without complications Status: Chronic (3) Limited mobility: Code(s): Z74.09 - Other reduced mobility Status: Chronic (4) Poor appetite: Code(s): R63.0 - Anorexia Status: Chronic (5) At high risk for skin breakdown: Assessment/Problem Details: d/t limited mobility and double leg amputee Code(s): Z91.89 - Other specified personal risk factors, not elsewhere classified Status: Chronic (6) Fecal incontinence: Code(s): R15.9 - Full incontinence of feces Status: Chronic (7) Candidiasis: Assessment/Problem Details: genital and periulcer areas Code(s): B37.9 - Candidiasis, unspecified Status: Chronic Time spent with patient Time Spent With Patient (min): 20 Dictated By: Sadia Aguilar APRN DD/ 43 Signed By: <Electronically signed by DAVID Aguilar> 02/10/22 [address] [facility] Work Phone: [phone]) 374-649112-22-2022 NoteHNO ID: [id number] Author: Asia Pike MD Service: ? Author Type: Physician Type: Progress Notes Filed: 02/05/2022 9:38 AM Note Text: [facility] Transplant Follow up Portions of this note were copied from the last encounter. Changes were made to appropriately reflect updated history and interval events, physical exam, data review, and medical decision making. 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 Briefly on midodrine and florinef, now off all -Hospital admission 11/28-12/11/2021 Osteomyelitis right foot w/ right BKA Home BP: 90-100/60-70; In office: 72/42 New Complaints: 20 years, 10 months post kidney transplant Feeling lightheaded and dizzy this AM with lower BP. Offered water and snacks patient declined. Indra scale at [facility]: 166.2 lbs per patient. Bed sore on coccyx causing discomfort. Being changed regularly at SNF- reported to be smaller around but still as deep. Patient not very up to date with medications. Patient brought paperwork from [facility] with all medications being received. Patient unsure if they have been drawing labs regularly. Last Tac from 01/19: 12.9 and K 5.9. In need of current labs. Lab orders will be sent with patient and follows as below: Kidney and Pancreas Transplant Standing Lab Orders [address] [facility] [address] [place], [place] [address] February 05, 2022 Alex Almonte 1945 [id number] STANDARD TESTING: Diagnosis Codes: Z94.0 Kidney Transplant and Z48.298 Aftercare following Organ Transplant Standard Testing: Comp Metabolic Panel: Monthly CBC w/Differential: Monthly Magnesium: Monthly Intact PTH (N25.81): Other Every 6 months Vitamin D 25-Hydroxy (E55.9): Every 3 months Fasting Lipid Panel (E78.5): Other Every 6 months Other Inorganic Phosphorus: Monthly DRUG LEVELS: Diagnosis Codes: Z94.0 Kidney Transplant, Z48.298 Aftercare following Organ Transplant and Z51.81 Encounter for Therapeutic Drug Monitoring Drug Levels: FK 506 (Tacrolimus) Frequency: Monthly PLEASE RUN THE ABOVE ORDERED TESTS STAT AT YOUR LABORATORY FACILITY AND FAX TO [phone]. PLEASE CALL [phone]. Provider: Dr. Pike Current Outpatient Medications Medication Sig insulin glargine (LANTUS SOLOSTAR, BASAGLAR KWIKPEN) 100 unit/mL (3 mL) Inject 17 Units subcutaneously once daily. sulfamethoxazole-trimethoprim (SEPTRA) 400-80 mg per tablet Take by mouth. Take one (1) tablet -- tacrolimus IR (PROGRAF) 1 mg capsule Take 2 capsules by mouth DAILY (6 AM). tacrolimus IR (PROGRAF) 1 mg capsule Take 1 capsule by mouth DAILY AT 6 PM. warfarin (COUMADIN) 2 mg tablet Take 1 tablet by mouth once daily. insulin lispro 100 unit/mL injection Inject 6 Units subcutaneously three times daily before meals. Please give 6 units with meals three times daily plus additional sliding scale below as needed based on accuchecks Correctional Scale 2: For glucose result give insulin dose < 110 mg/dL: 0 units 111-150 mg/dL: 0 units 151-200 mg/dL: 2 units 201-250 mg/dL: 4 units 251-300 mg/dL: 6 units 301-350 mg/dL: 8 units 351-400 mg/dL: 10 units > 400 mg/dL: Give 10 units and notify provider senna-docusate (SENNA-S) 8.6-50 mg per tablet Take 1 tablet by mouth twice daily. polyethylene glycol 3350 (MIRALAX, GLYCOLAX) 17 gram packet Take 1 Packet by mouth once daily. Dissolve dose in 4 - 8 ounces of liquid and take as directed. phosphorus (K PHOS NEUTRAL) 250 mg tablet 1 tablet by ORAL/FEEDING TUBE route twice daily. ipratropium-albuterol (DUONEB) 0.5 mg-3 mg(2.5 mg base)/3 mL nebu Inhale 3 mL as instructed every 6 hours as needed for wheezing/shortness of breath. oxyCODONE IR (ROXICODONE) 5 mg immediate release tablet 1-2 tablets by ORAL/FEEDING TUBE route every 3 hours as needed. torsemide (DEMADEX) 20 mg tablet Take 1 tablet by mouth every other day. nut.tx.gluc intol,lf,soy-fiber (BOOST GLUCOSE CONTROL) 0.07-0.8 gram-kcal/mL liqd Take 237 mL by mouth daily with dinner. Food Supplement, Lactose-Free (ENSURE MAX PROTEIN) liqd Take 237 mL by mouth daily with breakfast. OTC NUTRITIONAL SUPPLEMENT Take 237 mL by mouth daily with lunch. Magic Cup [place] with lunch aspirin, enteric coated (ASPIRIN, ENTERIC COATED) 81 mg EC tablet Take 1 tablet by mouth once daily. atorvastatin (LIPITOR) 40 mg tablet 1 tablet by ORAL/FEEDING TUBE route daily at bedtime. (more content not included)...[facility]12-22-[facility] History of Present illness Narrative* Asia Pike MD - 02/05/2022 8:20 AM EST Images from the original note were not included. [facility] Transplant Follow up Portions of this note were copied from the last encounter. Changes were made to appropriately reflect updated history and interval events, physical exam, data review, and medical decision making. 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 Briefly on midodrine and florinef, now off all -Hospital admission 11/28-12/11/2021 Osteomyelitis right foot w/ right BKA Home BP: 90-100/60-70; In office: 72/42 New Complaints: 20 years, 10 months post kidney transplant Feeling lightheaded and dizzy this AM with lower BP. Offered water and snacks patient declined. Indra scale at [facility]: 166.2 lbs per patient. Bed sore on coccyx causing discomfort. Being changed regularly at [facility]- reported to be smaller around but still as deep. Patient not very up to date with medications. Patient brought paperwork from [facility] with all medications being received. Patient unsure if they have been drawing labs regularly. Last Tac from 01/19: 12.9 and K 5.9. In need of current labs. Lab orders will be sent with patient and follows as below: Kidney and Pancreas Transplant Standing Lab Orders [address] [place], [place] [address] February 05, 2022 Alex Almonte 1945 [id number] STANDARD TESTING: Diagnosis Codes: Z94.0 Kidney Transplant and Z48.298 Aftercare following Organ Transplant Standard Testing: Comp Metabolic Panel: Monthly CBC w/Differential: Monthly Magnesium: Monthly Intact PTH (N25.81): Other Every 6 months Vitamin D 25-Hydroxy (E55.9): Every 3 months Fasting Lipid Panel (E78.5): Other Every 6 months Other Inorganic Phosphorus: Monthly DRUG LEVELS: Diagnosis Codes: Z94.0 Kidney Transplant, Z48.298 Aftercare following Organ Transplant and Z51.81 Encounter for Therapeutic Drug Monitoring Drug Levels: FK 506 (Tacrolimus) Frequency: Monthly PLEASE RUN THE ABOVE ORDERED TESTS STAT AT YOUR LABORATORY FACILITY AND FAX TO [phone]. PLEASE CALL [phone]. Provider: Dr. Pike Current Outpatient Medications Medication Sig insulin glargine (LANTUS SOLOSTAR, BASAGLAR KWIKPEN) 100 unit/mL (3 mL) Inject 17 Units subcutaneously once daily. sulfamethoxazole-trimethoprim (SEPTRA) 400-80 mg per tablet Take by mouth. Take one (1) tablet -- tacrolimus IR (PROGRAF) 1 mg capsule Take 2 capsules by mouth DAILY (6 AM). tacrolimus IR (PROGRAF) 1 mg capsule Take 1 capsule by mouth DAILY AT 6 PM. warfarin (COUMADIN) 2 mg tablet Take 1 tablet by mouth once daily. insulin lispro 100 unit/mL injection Inject 6 Units subcutaneously three times daily before meals. Please give 6 units with meals three times daily plus additional sliding scale below as needed basedon accuchecks Correctional Scale 2: For glucose result give insulin dose < 110 mg/dL: 0 units 111-150 mg/dL: 0 units 151-200 mg/dL: 2 units 201-250 mg/dL: 4 units 251-300 mg/dL: 6 units 301-350 mg/dL: 8 units 351-400 mg/dL: 10 units > 400 mg/dL: Give 10 units and notify provider senna-docusate (SENNA-S) 8.6-50 mg per tablet Take 1 tablet by mouth twice daily. polyethylene glycol 3350 (MIRALAX, GLYCOLAX) 17 gram packet Take 1 Packet by mouth once daily. Dissolve dose in 4 - 8 ounces of liquid and take as directed. phosphorus (K PHOS NEUTRAL) 250 mg tablet 1 tablet by ORAL/FEEDING TUBE route twice daily. ipratropium-albuterol (DUONEB) 0.5 mg-3 mg(2.5 mg base)/3 mL nebu Inhale 3 mL as instructed every 6hours as needed for wheezing/shortness of breath. oxyCODONE IR (ROXICODONE) 5 mg immediate release tablet 1-2 tablets by ORAL/FEEDING TUBE route every 3 hours as needed. torsemide (DEMADEX) 20 mg tablet Take 1 tablet by mouth every other day. nut.tx.gluc intol,lf,soy-fiber (BOOST GLUCOSE CONTROL) 0.07-0.8 gram-kcal/mL liqd Take 237 mL by mouth daily with dinner. Food Supplement, Lactose-Free (ENSURE MAX PROTEIN) liqd Take 237 mL by mouth daily with breakfast. OTC NUTRITIONAL SUPPLEMENT Take 237 mL by mouth daily with lunch. Magic Cup [place] with lunch aspirin, enteric coated (ASPIRIN, ENTERIC COATED) 81 mg EC tablet Take 1 tablet by mouth once daily. atorvastatin (LIPITOR) 40 mg tablet 1 tablet by ORAL/FEEDING TUBE route daily at bedtime. predniSONE (DELTASONE) 5 mg tablet TAKE 1 TABLET BY MOUTH EVERY DAY No current facility-administered medications for this visit. ROS: No Fevers, Chills, No Nausea, vomiting, diarrhea No SOB, chest pain, pressure No edema, skin rash, + Pressure Ulcer No dysuria, or frequency Weight steady No change appetite All other system reviews negative. Augusta Medrano RN Staff: February 05, 2022 9:34 AM I have seen the patient and confirmed the historical findings as outlined above. PE: BP (!) 72/42 (BP Site: Right Arm, BP Position: Sitting, BP Cuff Size: Regular Adult) Pulse 79 Temp (!) 35.9 C (96.7 F) (Temporal) SpO2 100% There is no height or weight on file to calculate BMI. BP - standardized method Pulse 1 2 3 Average Orthostatic vitals Supine Sitting Standing BP cuff location BP cuff size Comments for BP values First BP (right) First BP (left) HEENT: Sclera anicteric, NC/AT Neck: no adenopathy. No elevated JVP CV: RRR no murmurs, rubs, gallops Lungs: Clear to auscultation and percussion ABD: soft, NT, ND Allograft: Nontender, wound well healed EXT: no edema NEURO: non focal SKIN: no rash, lesion. Labs and imaging reviewed Allograft function: Recent Labs 02/05/22 0810 UGLUC 3+* UBILI Negative UKET Trace UHB Negative UPH 5.5 UPROT Negative Estimated Creatinine Clearance: 79.9 mL/min (based on SCr of 0.95 mg/dL). eGFR-All Other Races (.) Date Value 01/06/2015 41 01/05/2015 31 01/04/2015 25 06/12/2014 52 11/23/2013 58 Estimated Glomerular Filtration Rate (mL/min/1.73m ) Date Value 12/11/2021 83 12/10/2021 89 12/10/2021 83 12/09/2021 77 12/08/2021 75 Creatinine Date Value 01/19/2022 0.95 MG/DL 01/14/2022 1.3 MG/DL 01/05/2022 1.0 MG/DL 01/06/2015 1.68 mg/dL 01/05/2015 2.11 mg/dL 01/04/2015 2.57 mg/dL BUN Date Value 01/19/2022 18.0 MG/DL 01/14/2022 26 MG/DL 01/05/2022 14 MG/DL 01/06/2015 32 mg/dL 01/05/2015 41 mg/dL 01/04/2015 51 mg/dL Amylase (U/L) Date Value 12/02/1999 34 No results found for: PCRAT Immunosuppression: Tacrolimus/FK506 Date Value 01/19/2022 12.2 NG/ML 01/14/2022 9.9 NG/ML 12/29/2021 7.7 ng/mL 12/11/2021 4.8 ng/mL 12/10/2021 3.6 ng/mL 12/09/2021 4.2 ng/mL 09/13/2019 6.7 ng/mL 10/26/2018 6.8 ng/mL No results found for: EVERO Sirolimus/Rapamune (ng/mL) Date Value 11/22/2009 10.7 02/22/2009 10.7 09/07/2008 13.9 03/09/2008 12.1 Cyclosporine (ng/mL) Date Value 06/04/2004 <25 Hematology: WBC Date Value 12/29/2021 6.0 K/uL 12/11/2021 10.35 k/uL 12/10/2021 7.59 k/uL 12/09/2021 9.43 k/uL 01/06/2015 6.09 k/uL 01/05/2015 7.24 k/uL 01/04/2015 10.14 k/uL Hemoglobin (g/dL) Date Value 12/11/2021 8.8 12/10/2021 8.2 12/09/2021 7.6 01/06/2015 14.6 01/05/2015 13.9 01/04/2015 13.5 Hematocrit (%) Date Value 12/11/2021 26.7 12/10/2021 26.3 12/09/2021 23.8 01/06/2015 43.3 01/05/2015 41.2 01/04/2015 40.4 HCT (%) Date Value 12/29/2021 27.1 Platelet Count (k/uL) Date Value 12/11/2021 279 12/10/2021 277 12/09/2021 299 01/06/2015 203 01/05/2015 202 01/04/2015 191 PLT (K/uL) Date Value 12/29/2021 355 Calcium (mg/dL) Date Value 01/19/2022 7.8 01/14/2022 8.0 01/05/2022 7.6 01/06/2015 8.4 01/05/2015 8.5 01/04/2015 7.9 Phosphorus (mg/dL) Date Value 12/29/2021 2.5 12/11/2021 2.0 12/10/2021 1.3 01/04/2015 3.8 09/07/2003 3.1 04/19/2003 2.8 PTH, Intact (pg/mL) Date Value 11/23/2013 55 11/22/2009 153 02/22/2009 114 Viral screening: No results found for: BKVDNA No results found for: CMVIU No results found for: EBVDNA Assessment and Plan: 76 year old old s/p KTxp 04/04/2001 (Kidney) 1. Allograft function: Stable function 2. Immunosuppression regimen and management: At therapeutic levels Tacrolimus/FK506 Date Value 01/19/2022 12.2 NG/ML 01/14/2022 9.9 NG/ML 12/29/2021 7.7 ng/mL 12/11/2021 4.8 ng/mL 12/10/2021 3.6 ng/mL 12/09/2021 4.2 ng/mL 09/13/2019 6.7 ng/mL 10/26/2018 6.8 ng/mL 3. Hypertension: stable- low, no medications Last 3 Encounter BP Readings: Date: BP: 02/05/2022 72/42 01/12/2022 93/53 12/30/2021 96/54 demadex every other day Taper as indicated by volume status and bp 4. Anemia modest anemia 5. Bone and mineral metabolism stable Z94.0 Kidney replaced by transplant (primary encounter diagnosis) This patient's labs and imaging were reviewed for maintenance of allograft function, prevention of rejection, therapeutic drug management, and monitoring and treating associated comobidities. This requires medical decision making of high complexity. Asia Pike MD documented in this encounterLicking [facility]12[facility]22 Progress note Author Sadia Aguilar [facility] January 20, 2022 2:21pm Note Date/Time January 20, 2022 2 :21pm [facility] [address] [place] [address] Wound Center Provider Note Signed Patient: Alex Almonte MR#: [id number] : 1945 Acct:[id number] Age/Sex: 76 / M Copies to: DO Sadia Whyte APRN~ HPI Date of Visit Date of Visit: Date of Service: 01/20/2022 Time of Service: 14:17 Narrative HPI: 12/30/21 Alex is a 76 year old male presenting to [facility] wound care for aninitial visit for eval and treatment of a sacral/coccyx area pressure ulcer. He resides at [facility]. There is an MOTOR BUILDER WINDER present for the visit. Medicalhoney gel will be use for debridement and antimicrobial purposes. He will need to offload pressure and have a well balanced diet that is somewhat higher in protein and amino acids and lower in inflammation foods. Labs were ordered to check his nutrition status. Alex will be seen back in a few weeks. 01/20/22 orders are more or less the same, an xray was ordered to check for bone infection d/t the depth change, we had to reorder labs since it appears that those were never done or at least they were not faxed to us as requested, he mayneed a surgical consult depending on what the xray shows, he needed cleaned up today from a large BM- this was done by 3 nursing staff members, follow up in few weeks Subjective Pain Coccyx: Pain Description: Intermittent Pain Intensity: 0 Wound/Ulcer History When did wound start?: 4 weeks ago- from initial visit here Mode of Arrival/ Threat Monitoring Analyst: Facility vehicle Assistive Device Used Today: Wheelchair and Indra Lives with:: Care/Nursing Facility Appetite Description: Within Normal Limits Who helps w/ dressing change?: Nursing Facility Why Do You Need Help?: Can't Reach Ulcer, Limited mobility and Taxing effort to leave home Smoking Status: Former smoker [facility] Medical History (Updated 01/20/22 @ 14:21 by Sadia Aguilar APRN) Below-knee amputation of right lower extremity Diabetes Fistula Left below-knee amputee Paroxysmal atrial fibrillation Peripheral vascular disease Family History Father Aneurysm Father Parkinsons disease Social History Smoking Status: Former smoker Tobacco Type: cigarettes Substance Use Type: None Grafts History of Graft History of Graft?: No Exam Physical Exam Vital Signs: Temp Pulse Resp BP O2 Del Method 97.5 F L 91 H 18 91/62 L Room Air 01/20/22 14:02 01/20/22 14:02 01/20/22 14:02 01/20/22 14:02 01/20/22 14:02 Const General: cooperative, comfortable and no acute distress Nutritional Appearance: overweight Orientation: alert, awake and oriented x3 Lower/Upper Extremity Exam Vascular Exam-Pulses Right Brachial: Pulse Assessment Method: NIBP Objective Meds/Allergies Home Medications insulin aspart U-100 100 unit/mL subcutaneous solution 100 sliding scale dose subcut TIDWM 01/23/19 [History Confirmed 12/30/21] insulin glargine 100 unit/mL subcutaneous solution 6 units subcut DAILY 01/23/19[History Confirmed 12/30/21] latanoprost 0.005 % eye drops 1 drp Eye-Both DAILY 01/23/19 [History Confirmed 12/30/21] prednisone 5 mg tablet 5 mg PO DAILY 01/23/19 [History Confirmed 12/30/21] sulfamethoxazole 400 mg-trimethoprim 80 mg tablet 1 tab PO 3XW 01/23/19 [History Confirmed 12/30/21] tacrolimus 1 mg capsule, immediate-release 2 cap PO BID 01/23/19 [History Confirmed 12/30/21] aspirin 81 mg tablet,delayed release 81 mg PO DAILY 12/30/21 [History Confirmed 12/30/21] atorvastatin 40 mg tablet (Lipitor) 40 mg PO DAILY 12/30/21 [History Confirmed 12/30/21] oxycodone 5 mg capsule 5 mg PO Q4H PRN Pain 12/30/21 [History Confirmed 12/30/21] polyethylene glycol 3350 17 gram/dose oral powder (Miralax) 17 g PO DAILY 12/30/21 [History Confirmed 12/30/21] torsemide 20 mg tablet 20 mg PO DIRECTED 12/30/21 [History Confirmed 12/30/21] warfarin 1 mg tablet 1 mg PO 3XW 12/30/21 [History Confirmed 12/30/21] warfarin 2 mg tablet 2 mg PO QTUTHSASU 12/30/21 [History Confirmed 12/30/21] potassium chloride 10 mEq tablet,extended release (Klor-Con) 10 meq PO DAILY 01/20/22 [History Confirmed 01/20/22] Allergies No Known Allergies Allergy (Unverified 01/20/19 08:48) Wound/Ulcer Sacrum: Type: Pressure/Injury Ulcer Pressure Ulcer/Injury Staging: Unstageable Bed Appearance: Pavillion and Yellow Percent of Wound Bed Granulated/Red: 40 Percent of Devitalized: 60 Length (cm): 5.2 Width (cm): 3.4 Depth (cm): 1.8 CM Sq: 17.680 Surrounding Tissue Appearance: Pavillion and Hyperpigmented Surrounding Tissue Temp: Warm Drainage Amount: Large Drainage Description: Yellow Drainage Odor: No Odor Procedures Time Out: 2 Patient Identifiers, Correct Patient, Correct Side/Site, Correct Procedure and Safety Issues Reviewed Procedure: The sacral ulcer was not anesthetized with topical 2% lidocaine gel. A curette and scalpel and forcep was used to perform debridement for the removal of 10 cm?of devitalized tissue consisting of skin and slough. Debridement was down to healthy bleeding tissue. Estimated blood loss was minimal. Hemostasis was achieved by applying pressure. The sacral ulcer now appears 50% pink and red and the size remains the same. The patient tolerated well. Results Height: 6 ft 4 in Assessment/Plan Assessment/Plan (1) Pressure ulcer of sacral region, unstageable: Code(s): L89.150 - Pressure ulcer of sacral region, unstageable Status: Chronic (2) Diabetes: Code(s): E11.9 - Type 2 diabetes mellitus without complications Status: Chronic (3) Limited mobility: Code(s): Z74.09 - Other reduced mobility Status: Chronic (4) Poor appetite: Code(s): R63.0 - Anorexia Status: Chronic (5) At high risk for skin breakdown: Assessment/Problem Details: d/t limited mobility and double leg amputee Code(s): Z91.89 - Other specified personal risk factors, not elsewhere classified Status: Chronic (6) Fecal incontinence: Code(s): R15.9 - Full incontinence of feces Status: Chronic (7) Candidiasis: Assessment/Problem Details: genital and periulcer areas Code(s): B37.9 - Candidiasis, unspecified Status: Chronic Time spent with patient Time Spent With Patient (min): 20 Dictated By: Sadia Aguilar APRN DD/ 141 Signed By: <Electronically signed by DAVID Aguilar> 01/20/22 [facility] Work Phone: [phone]) 580-350112-06-2022 Miscellaneous Notes* Telephone Encounter - Van Olivarez APRN.CNP - 01/20/2022 1:12 PM EST Labs noted from yesterday. Pt is currently residing at [facility], I spoke with the Nurse, the results has been addressed by Physician caring for pt. He had been placed on Chlor Con and this has been discontinued and hyperkalemia has been treated. Van Olviarez APRN.CNP documented in this encounterLicking [facility]11-28-2022 Surgical operation note* Brief Op Note - Misbah Landis PA-C - 01/12/2022 10:41 AM EST BRIEF OPERATIVE / PROCEDURE NOTE LOG ID: [id number] SURGERY/PROCEDURE DATE: 01/12/2022 INCISION/PROCEDURE START TIME: 10:32 AM INCISION CLOSE/PROCEDURE END TIME: 10:35 AM SURGEON(S)/PROCEDURALIST(S) AND PRINCIPAL TECHNOLOGIST(S): Misbah Landis PA-C SURGERY/PROCEDURE(S): Removal tunneled vascular access catheter under local anesthesia ANESTHESIA: Procedural Sedation FINDINGS: Catheter removed intact ESTIMATED BLOOD LOSS: 0 ml SPECIMENS: None COMPLICATIONS: None PRE-OP/PRE-PROCEDURE DIAGNOSIS: Foot Ulcer POST-OP/POST-PROCEDURE DIAGNOSIS: Same as Preop SIGNATURE: Misbah Landis PA-C PATIENT NAME: Alex Almonte DATE: January 12, 2022 TIME: 10:42 AM documented in this encounterLicking [facility] Hospital11-22-2022 Nurse Note* Laxmi Archibald RN - 01/06/2022 1:55 PM EST Pre-procedure instructions: Contacted patient's sister, Munira Brothers and nurse at [facility] ([phone]) andconfirmed appt. for Gerhard removal scheduled on 01/12/22, at [facility]. If instructions are not followed your procedure may need to be cancelled or rescheduled. Diet: Do not eat solid food after midnight the night before your procedure. You may have water until your arrival time. Medications: IF ok with your Prescribing Provider: RADIOLOGY RECOMMENDS THESE MEDICATION RESTRICTIONS Coumadin Instructions: INR value needs to be 3.0 or below for this procedure. Please discuss with ordering provider if holding coumadin is needed. You may take your other medications with water on the day of your procedure. Labs: Labs completed on 12/29/21. Arrival: Please bring your Photo ID and Insurance Card. A general consent may need to be signed. Arrival at 9:30am [id number] and check in for your procedure. Billet Shearer/Transportation: How will you be arriving for your procedure? Ambulance service. To be arranged by [facility]. If you develop any of the following symptoms before your procedure, please call [phone]. Chills, joint pain, rash, sore throat, cough, loss of smell, reddened eyes, vomiting, abdominal pains, diarrhea, loss of taste, severe headache, weakness, bruising or bleeding, fever, muscle pain, shortness of breath Recovery expectations: You can expect to be in recovery for 30 minutes following the procedure. Written instructions provided to patient via [employer] If you have any questions please call [phone] documented in this encounterLicking [facility] Hospital11-15-2022 Progress note Author Sadia Aguilar [facility] December 30, 2021 1:49pm Note Date/Time December 30, 2021 1:49pm [facility] [address] [place] [address] Wound Center Provider Note Signed Patient: Alex Almonte MR#: [id number] : 1945 Acct:[id number] Age/Sex: 76 / M Copies to: DO Sadia Whyte APRN~ HPI Date of Visit Date of Visit: Date of Service: 12/30/2021 Time of Service: 13:44 Narrative HPI: 12/30/21 Alex is a 76 year old male presenting to [facility] wound care for aninitial visit for eval and treatment of a sacral/coccyx area pressure ulcer. He resides at [facility]. There is an MOTOR BUILDER WINDER present for the visit. Medicalhoney gel will be use for debridement and antimicrobial purposes. He will need to offload pressure and have a well balanced diet that is somewhat higher in protein and amino acids and lower in inflammation foods. Labs were ordered to check his nutrition status. Alex will be seen back in a few weeks. Subjective Pain Coccyx: Pain Intensity: 0 Wound/Ulcer History When did wound start?: 4 weeks ago Mode of Arrival/ Threat Monitoring Analyst: Facility vehicle Assistive Device Used Today: Wheelchair and Indra Lives with:: Care/Nursing Facility Appetite Description: Within Normal Limits Who helps w/ dressing change?: Nursing Facility Why Do You Need Help?: Can't Reach Ulcer, Limited mobility and Taxing effort to leave home Smoking Status: Former smoker [facility] Medical History (Updated 12/30/21 @ 13:49 by Sadia Aguilar APRN) Below-knee amputation of right lower extremity Diabetes Fistula Left below-knee amputee Paroxysmal atrial fibrillation Peripheral vascular disease Family History Father Aneurysm Father Parkinsons disease Social History Smoking Status: Former smoker Tobacco Type: cigarettes Substance Use Type: None Grafts History of Graft History of Graft?: No Exam Physical Exam Vital Signs: Temp Pulse Resp BP O2 Del Method 97.0 F L 92 H 18 97/63 L Room Air 12/30/21 13:14 12/30/21 13:14 12/30/21 13:14 12/30/21 13:14 12/30/21 13:14 Const General: cooperative, comfortable and no acute distress Nutritional Appearance: overweight Orientation: alert, awake and oriented x3 Lower/Upper Extremity Exam Vascular Exam-Pulses Right Radial: Pulse Assessment Method: NIBP Objective Meds/Allergies Home Medications insulin aspart U-100 100 unit/mL subcutaneous solution 100 sliding scale dose subcut TIDWM 01/23/19 [History Confirmed 01/23/19] insulin glargine 100 unit/mL subcutaneous solution 6 units subcut DAILY 01/23/19[History Confirmed 01/23/19] latanoprost 0.005 % eye drops 1 drp Eye-Both DAILY 01/23/19 [History Confirmed 01/23/19] prednisone 5 mg tablet 5 mg PO DAILY 01/23/19 [History Confirmed 01/23/19] sulfamethoxazole 400 mg-trimethoprim 80 mg tablet 1 tab PO 3XW 01/23/19 [History Confirmed 01/23/19] tacrolimus 1 mg capsule, immediate-release 2 cap PO BID 01/23/19 [History Confirmed 01/23/19] aspirin 81 mg tablet,delayed release mg 12/30/21 [History] atorvastatin 40 mg tablet (Lipitor) 40 mg PO DAILY 12/30/21 [History Confirmed 12/30/21] oxycodone 5 mg capsule 5 mg PO Q4H PRN Pain 12/30/21 [History Confirmed 12/30/21] polyethylene glycol 3350 17 gram/dose oral powder (Miralax) 17 g PO DAILY 12/30/21 [History Confirmed 12/30/21] torsemide 20 mg tablet 20 mg PO DIRECTED 12/30/21 [History Confirmed 12/30/21] warfarin 1 mg tablet 1 mg PO 3XW 12/30/21 [History Confirmed 12/30/21] warfarin 2 mg tablet 2 mg PO QTUTHSASU 12/30/21 [History Confirmed 12/30/21] Allergies No Known Allergies Allergy (Unverified 01/20/19 08:48) Wound/Ulcer Sacrum: Type: Pressure/Injury Ulcer Pressure Ulcer/Injury Staging: Unstageable Bed Appearance: Epithelial Tissue or Bridge and Yellow Percent of Wound Bed Granulated/Red: 0 Percent of Devitalized: 100 Length (cm): 7.0 Width (cm): 5.5 Depth (cm): 0.1 CM Sq: 38.500 Surrounding Tissue Appearance: Pavillion and Hyperpigmented Surrounding Tissue Temp: Warm Drainage Amount: Moderate and Large Drainage Description: Yellow Drainage Odor: No Odor Procedures Time Out: 2 Patient Identifiers, Correct Patient, Correct Side/Site, Correct Procedure and Safety Issues Reviewed Procedure: The sacral ulcer was anesthetized with topical 2% lidocaine gel. A scalpel and forcep was used to perform debridement for the removal of 10 cm? of devitalized tissue consisting of skin and slough. Debridement was down to healthy bleeding tissue. Estimated blood loss was minimal. Hemostasis was achieved by applying pressure. The sacral ulcer now appears to percent pink and red and the size remains the same. The patient tolerated well with no complaints of pain. Results Height: 6 ft 4 in Assessment/Plan Assessment/Plan (1) Pressure ulcer of sacral region, unstageable: Code(s): L89.150 - Pressure ulcer of sacral region, unstageable Status: Chronic (2) Diabetes: Code(s): E11.9 - Type 2 diabetes mellitus without complications Status: Chronic (3) Limited mobility: Code(s): Z74.09 - Other reduced mobility Status: Chronic (4) Poor appetite: Code(s): R63.0 - Anorexia Status: Chronic (5) At high risk for skin breakdown: Assessment/Problem Details: d/t limited mobility and double leg amputee Code(s): Z91.89 - Other specified personal risk factors, not elsewhere classified Status: Chronic Time spent with patient Time Spent With Patient (min): 25 Dictated By: Sadia Aguilar APRN DD/ 1344 Signed By: <Electronically signed by DAVID Aguilar> 12/30/21 1349 [facility] Work Phone: [phone]) 708-171411-15-2022 History of Present illness Narrative* Paresh Fonseca MD - 12/30/2021 9:52 AM EST INFECTIOUS DISEASES OUTPATIENT FOLLOW-UP NOTE SERVICE DATE: 12/30/2021 Subjective INTERVAL HPI : This is a follow up visit for MRSA bacteremia. On vancomycin copat x4 weeks via right chest wall Gerhard catheter with stop date of December 27, 2021 . This visit was conducted as a virtual visit done by Luis Angel dsouza through the help of Zoe who is oneof his caregivers at the rehab facility He is currently at [facility] in [facility] Seen on video together with Zoe -history obtained from bedside nursing. he is getting up in a chair, working with PT diet is back to regular hes doing well. much improved since admission to [facility] infection is all better R BKA stump is healing well- has sutures and maxwell in place. has scabs on the R lateral side but no wound care concerns. It continues to heal. He has a follow-up with vascular surgery later December 2021. has a sacral wound -- he has local wound care following this at [facility] WBC 6.0, creatinine -- 0.8. alt 12 ast 22 Normal appetite No n/v No diarrhea No rashes No SOB No LOCKHART No cough No malaise No chest pain No joint pain ROS completed x14 and only pertinent data documented, the rest is negative except as documented above MEDICATIONS: Current Outpatient Medications Medication Sig insulin glargine (LANTUS SOLOSTAR, BASAGLAR KWIKPEN) 100 unit/mL (3 mL) Inject 17 Units subcutaneously once daily. sulfamethoxazole-trimethoprim (SEPTRA) 400-80 mg per tablet Take by mouth. Take one (1) tablet -- tacrolimus IR (PROGRAF) 1 mg capsule Take 2 capsules by mouth DAILY (6 AM). tacrolimus IR (PROGRAF) 1 mg capsule Take 1 capsule by mouth DAILY AT 6 PM. warfarin (COUMADIN) 2 mg tablet Take 1 tablet by mouth once daily. insulin lispro 100 unit/mL injection Inject 6 Units subcutaneously three times daily before meals. Please give 6 units with meals three times daily plus additional sliding scale below as needed basedon accuchecks Correctional Scale 2: For glucose result give insulin dose < 110 mg/dL: 0 units 111-150 mg/dL: 0 units 151-200 mg/dL: 2 units 201-250 mg/dL: 4 units 251-300 mg/dL: 6 units 301-350 mg/dL: 8 units 351-400 mg/dL: 10 units > 400 mg/dL: Give 10 units and notify provider senna-docusate (SENNA-S) 8.6-50 mg per tablet Take 1 tablet by mouth twice daily. polyethylene glycol 3350 (MIRALAX, GLYCOLAX) 17 gram packet Take 1 Packet by mouth once daily. Dissolve dose in 4 - 8 ounces of liquid and take as directed. phosphorus (K PHOS NEUTRAL) 250 mg tablet 1 tablet by ORAL/FEEDING TUBE route twice daily. ipratropium-albuterol (DUONEB) 0.5 mg-3 mg(2.5 mg base)/3 mL nebu Inhale 3 mL as instructed every 6hours as needed for wheezing/shortness of breath. oxyCODONE IR (ROXICODONE) 5 mg immediate release tablet 1-2 tablets by ORAL/FEEDING TUBE route every 3 hours as needed. torsemide (DEMADEX) 20 mg tablet Take 1 tablet by mouth every other day. nut.tx.gluc intol,lf,soy-fiber (BOOST GLUCOSE CONTROL) 0.07-0.8 gram-kcal/mL liqd Take 237 mL by mouth daily with dinner. Food Supplement, Lactose-Free (ENSURE MAX PROTEIN) liqd Take 237 mL by mouth daily with breakfast. OTC NUTRITIONAL SUPPLEMENT Take 237 mL by mouth daily with lunch. Magic Cup [place] with lunch aspirin, enteric coated (ASPIRIN, ENTERIC COATED) 81 mg EC tablet Take 1 tablet by mouth once daily. atorvastatin (LIPITOR) 40 mg tablet 1 tablet by ORAL/FEEDING TUBE route daily at bedtime. predniSONE (DELTASONE) 5 mg tablet TAKE 1 TABLET BY MOUTH EVERY DAY Current Facility-Administered Medications Medication Dose Route Frequency cilgavimab 300 mg intramuscular injection (EVUSHELD) 300 mg INTRAMUSCULAR ONCE (AMB - Up to 30 Days) tixagevimab 300 mg intramuscular injection (EVUSHELD) 300 mg INTRAMUSCULAR ONCE (AMB - Up to 30 Days) Objective Social History Tobacco Use Smoking status: Former Packs/day: 1.00 Years: 8.00 Pack years: 8.00 Types: Cigarettes Quit date: 02/15/1975 Years since quittin.9 Smokeless tobacco: Never Substance Use Topics Alcohol use: Yes Comment: 1 beer per year Drug use: Never FAMILY HISTORY Problem Relation Age of Onset other (aortic aneurysm) Father Breast Cancer Sister No Known Problems Sister No Known Problems Brother Diabetes Maternal Grandmother other (COVID infection) Son Intellectual Disability Son Aneurysm No Family History PHYSICAL EXAM Via video Awake sleepy. Oriented x3. No labored breathing. On room air. Anicteric sclerae full EOMs. No facial asymmetry No visible rash. No focal weakness. No tremors. Right chest wall gerhard catheter clean dry and intact DIAGNOSTICS REVIEWED/OPAT LABS REVIEWED Impression/Recommendations Alex Almonte is a 76 year old male from [facility] [place]. Here today for copat follow-up for vancomycin x4 weeks for MRSA bacteremia He was transferred from [facility] TO [facility] on 11/28/2021 for further surgical management of infected right heel He has a past medical history of kidney transplant in 2001, left AKA from previously infected foot ulcers and multiple foot surgeries. History of PAD CAD status post CABG, diabetes, atrial fibrillatioN He originally presented [facility] for having altered mental status and right foot wet gangrene. On admission he was noted to have MRSA bacteremia in association with an infected right heel 1. 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 MRSA bacteremia secondary to#2 (blood cultures + 11/23/2021) TTE 12/01 negative for evidence of endocarditis repeat blood cx negative forMRSA 3. Status post right heel I&D at [facility] on 11/24/2021. 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 4. CKD - s/p gerhard placement 5. immunocompromised Status post right open above the ankle [id number] - Enterobacter and MRSA from cultures Gram-positive bacilli from 1 out of 2 blood cultures favor contaminant. corynebacterium sp/ contaminant Given h/o MRSA bacteremia in the setting of indwelling pacemaker, completed vancomycin IV x 4 weeksvia R chest wall gerhard on 12/27/21 s/p evusheld in setting of his immunocompromised state 12/10/21 Doing well post hospital discharge and completion of vancomycin. Per nursing, no concerns about hisright above the ankle amputation wound. Local wound care following at SNF. We will need to coordinate with his SNF [phone] --our ID office will need to arrange for IR gerhard removal. Return to ID as needed 10 Minutes spent via virtual visit. SIGNATURE: Paresh Fonseca MD PATIENT NAME: Alex Almonte DATE: December 30, 2021 TIME: 9:52 AM documented in this encounterLicking [facility]11-01-[facility]22 Miscellaneous Notes* Telephone Encounter - Sulma Pardo - 12/16/2021 3:13 PM EDT Pt occupational therapy aide is requesting orders for Stomp ampushield to be taken off pressure relief because it is causing sores on the thigh. Thanks, Sulma Pardo Bank Guard documented in this encounterLicking [facility] Hospital10-31-2022 Miscellaneous Notes* Telephone Encounter - Gwen Alfredo Adm Asst I - 12/15/2021 4:11 PM EDT Rupa LYLES from [facility] [phone] called to report IV Vancomycin was started until today. Patient missed 3 days, should patient makeup missed doses? Please advise. Gwen Alfredo Adm Asst I documented in this encounterLicking [facility] Hospital10-21-2022 Instructions* Patient Instructions* Paresh Fonseca MD - 12/05/2021 3:05 PM EDT Fact Sheet for Patients, Parents And Caregivers Emergency Use Authorization (EUA) of EVUSHELD (tixagevimab co-packaged with cilgavimab) for Coronavirus Disease 2019 (COVID-19) You are being given this Fact Sheet because your healthcare provider believes it is necessary to provide you with EVUSHELD (tixagevimab co-packaged with cilgavimab) for pre-exposure prophylaxis for prevention of coronavirus disease 2019 (COVID-19) caused by the SARS-CoV-2 virus. This Fact Sheet contains information to help you understand the potential risks and potential benefits of taking EVUSHELD, which you have received or may receive. The U.S. Food and Drug Administration (FDA) has issued an Emergency Use Authorization (EUA) to makeEVUSHELD available during the COVID-19 pandemic (for more details about an EUA please see What is an Emergency Use Authorization? at the end of this document). EVUSHELD is not an FDA-approved medicine in the [place]. Read this Fact Sheet for information about EVUSHELD. Talk to your healthcare provider if you have any questions. It is your choice to receive or not receive EVUSHELD. What is COVID-19? COVID-19 is caused by a virus called a coronavirus. You can get COVID-19 through close contact withanother person who has the virus. COVID-19 illnesses have ranged from very mild (including some with no reported symptoms) to severe,including illness resulting in . While information so far suggests that most COVID-19 illness is mild, serious illness can happen and may cause some of your other medical conditions to become worse. Older people and people of all ages with severe, long-lasting (chronic) medical conditions likeheart disease, lung disease, and diabetes, for example, seem to be at higher risk of being hospitalized for COVID-19. What is EVUSHELD (tixagevimab co-packaged with cilgavimab)? EVUSHELD is an investigational medicine used in adults and adolescents (12 years of age and older who weigh at least 88 pounds [40 kg]) for pre-exposure prophylaxis for prevention of COVID-19 in persons who are: not currently infected with SARS-CoV-2 and who have not had recent known close contact with someonewho is infected with SARS-CoV-2 and Who have moderate to severe immune compromise due to a medical condition or have received immunosuppressive medicines or treatments and may not mount an adequate immune response to COVID-19 vaccination or For whom vaccination with any available COVID-19 vaccine, according to the approved or authorized schedule, is not recommended due to a history of severe adverse reaction to a COVID-19 vaccine(s) or COVID-19 vaccine ingredient(s). EVUSHELD is investigational because it is still being studied. There is limited information known about the safety and effectiveness of using EVUSHELD for pre- exposure prophylaxis for prevention of COVID-19. EVUSHELD is not authorized for post-exposure prophylaxis for prevention of COVID-19. The FDA has authorized the emergency use of EVUSHELD for pre-exposure prophylaxis for prevention ofCOVID-19 under an Emergency Use Authorization (EUA). What should I tell my healthcare provider before I receive EVUSHELD? Tell your healthcare provider if you: Have any allergies, including if you have had a severe allergic reaction to a COVID-19 vaccine Have low numbers of blood platelets (which help blood clotting), a bleeding disorder, or are takinganticoagulants (to prevent blood clots) Have had a heart attack or stroke, have other heart problems, or are at high- risk of cardiac (heart) events Are or plan to become Are a child Have any serious illness Are taking any medications (prescription, njem-xvg-ssswmlu, vitamins, or herbal products) How will I receive EVUSHELD? EVUSHELD consists of two investigational medicines, tixagevimab and cilgavimab. You will receive 1 dose of EVUSHELD, consisting of 2 separate injections (tixagevimab and cilgavimab). EVUSHELD will be given to you by your healthcare provider as 2 intramuscular injections, given one after the other. Viruses can supervisor policy change clerks time (mutate) and develop into a slightly different form of the virus, called a variant. Based on what we know about current SARS-CoV-2 variants, you will need to receive additional doses of EVUSHELD every 6 months if ongoing protection is needed. Talk to your healthcare provider for more information. Who should generally not take EVUSHELD? Do not take EVUSHELD if you have had a severe allergic reaction to EVUSHELD. What are the important possible side effects of EVUSHELD? Possible side effects of EVUSHELD are: Allergic reactions. Allergic reactions can happen during and after injection of EVUSHELD and can sometimes be serious or life-threatening. You may have an increased risk of allergic reaction with EVUSHELD if you have had a severe allergic reaction to a COVID-19 vaccine. EVUSHELD contains polysorbate 80, an ingredient in some COVID-19 vaccines. Also, polysorbate 80 is similar to polyethylene glycol (PEG), an ingredient in other COVID-19 vaccines. Your healthcare provider may consult with a healthcare provider who specializes in allergy and immunology before giving you EVUSHELD if you have had a serious allergic reaction to a COVID-19 vaccine. Your healthcare provider will monitor you for allergic reactions during and for at least 1 hour after you receive EVUSHELD. Tell your healthcare provider right away if you get any of the following signs and symptoms of an allergic reaction during or after you receive EVUSHELD: trouble breathing or shortness of breath, hives, wheezing, chills, itching, tiredness or weakness, skin flushing, fast hea rt rate, sweating, chest pain or discomfort, muscle aches, nausea and vomiting, you feel lightheaded or faint, swelling of your face, lips, mouth and tongue, throat tightness. Cardiac (heart) events: Serious cardiac adverse events have happened, but were not common, in people who received EVUSHELD and also in people who did not receive EVUSHELD in the clinical trial studying pre-exposure prophylaxis for prevention of COVID-19. In people with risk factors for cardiac events (including a history of heart attack), more people who received EVUSHELD experienced serious cardiac events than people who did not receive EVUSHELD. It is not known if these events are related to EVUSHELD or underlying medical conditions. Contact your healthcare provider or get medical help right away if you get any symptoms of cardiac events, including pain, pressure, or discomfort in the chest, arms, neck, back, stomach or jaw, as well as shortness of breath, feeling tired or weak (fatigue), feeling sick (nausea), or swelling in your ankles or lower legs. The side effects of getting any medicine by intramuscular injection may include pain, bruising of the skin, soreness, swelling, and possible bleeding or infection at the injection site. These are not all the possible side effects of EVUSHELD. Not a lot of people have been given EVUSHELD. Serious and unexpected side effects may happen. EVUSHELD is still being studied so it is possible that all of the risks are not known at this time. It is possible that EVUSHELD may reduce your body s immune response to a COVID- 19 vaccine. If you have received a COVID-19 vaccine, you should wait to receive EVUSHELD until at least 2 weeks after COVID-19 vaccination. What other important information do I need to know when receiving EVUSHELD? Risk of COVID-19 caused by certain SARS-CoV-2 variants: Viruses can supervisor policy change clerks time (mutate) and develop into a slightly different form of the virus, called a variant. EVUSHELD may not be effective at preventing COVID-19 caused by certain SARS-CoV-2 variants. If you are exposed to these variants, your chance of developing COVID-19 is higher than from other variants. Tell your healthcare providerright away, and test for COVID-19, if you develop any symptoms of COVID- 19, including: fever or chills, cough, shortness of breath or difficulty breathing, feeling tired (fatigue), muscle or body aches, headache, sore throat, new loss of taste or smell, congestion or runny nose, nausea or vomiting, diarrhea. If you develop COVID-19, your healthcare provider may recommend one of the available COVID-19 treatments. For more information about the symptoms of COVID-19, go to https://www.cdc.gov/coronavirus/2019-ncov/symptoms-testing/symptoms. What other prevention choices are there? Vaccines to prevent COVID-19 are approved or available under Emergency Use Authorization. Use of EVUSHELD does not replace vaccination against COVID-19. For more information about other medicines authorized for treatment or prevention of COVID-19 go to https://www.fda.gov/tatgmafek-wgoivqeekjut-sog- response/rzl-niaxa-dinvnrrsph-jug-ycooeg-ilddgjxuj/ntcoxpnnu-get-kxbcbjkapfgsv for more information. It is your choice to receive or not receive EVUSHELD. Should you decide not to receive EVUSHELD, itwill not change your standard medical care. EVUSHELD is not authorized for post-exposure prophylaxis of COVID-19. What if I am or ? If you are or , discuss your options and specific situation with your healthcare provider. How do I report side effects with EVUSHELD? Contact your healthcare provider if you have any side effects that bother you or do not go away. Report side effects to FDA MedWatch at www.fda.gov/medwatch or call 6-966-OFC-5857 or call [employer] . Additional Information If you have questions, visit the website or call the telephone number provided below. Website Telephone number http://[place] How can I learn more about COVID-19? Ask your healthcare provider. Visit https://www.cdc.gov/COVID19 Contact your local or state public health department. What is an Emergency Use Authorization? The [place] FDA has made EVUSHELD (tixagevimab co-packaged with cilgavimab) available under an emergency access mechanism called an Emergency Use Authorization EUA. The EUA is supported by a [place] of Health and Human Service (HHS) declaration that circumstances exist to justify the emergency use of drugs and biological products during the COVID-19 pandemic. EVUSHELD for pre-exposure prophylaxis for prevention of coronavirus disease 2019 (COVID-19) caused by the SARS-CoV-2 virus has not undergone the same type of review as an FDA-approved product. In issuing an EUA under the COVID-19 public health emergency, the FDA has determined, among other things, that based on the total amount of scientific evidence available including data from adequate and well-controlled clinical trials, if available, it is reasonable to believe that the product may be effective for diagnosing, treating, or preventing COVID-19, or a serious or life-threatening disease or condition caused by COVID-19; that the known and potential benefits of the product, when used to diagnose, treat, or prevent such disease or condition, outweigh the known and potential risks of such product; and that there are no adequate, approved and available alternatives. All of these criteria must be met to allow for the product to be used in the treatment of patients during the COVID-19 pandemic. The EUA for EVUSHELD is in effect for the duration of the COVID-19 declaration justifying emergency use of EVUSHELD, unless terminated or revoked (after which EVUSHELD may no longer be used under the EUA). What are the ingredients in EVUSHELD? Each EVUSHELD co-packaged carton contains 2 vials. Active ingredient: Each of the vials contains either: tixagevimab or cilgavimab Inactive ingredients: Each vial contains L- histidine, L- histidine hydrochloride monohydrate, polysorbate 80, sucrose, water. Distributed by: [employer] [place], [place] Manufactured for: [place] [employer] 2021. All rightsreserved. documented in this encounterLicking [facility] Hospital10-21-2022 Miscellaneous Notes* Telephone Encounter - Paresh Fonseca MD - 12/05/2021 3:05 PM EDT Evusheld (tixagevimab/cilgavimab) Eligibility and Patient Discussion The patient agrees to receive Evusheld (tixagevimab 300 mg and cilgavimab 300 mg) at [place]. The patient verbalized understanding of repeating a COVID test 72 hours prior to the injections. called up patient in response to her [employer] message today she tested covid negative on a rapid test on Wednesday this week Discussed evushed fact sheet and she agrees to proceed she will retest again today to be scheduled for Friday 12/08 at [facility] Paresh Fonseca MD documented in this encounterLicking [facility] Hospital10-03-2022 Instructions* Patient Instructions* No Reeder DO - 11/17/2021 4:26 PM EDT -- continue coumadin -- will get vascular ultrasound for vein and artery of your right leg -- will have you see my interventional cardiology partner regarding your peripheral artery disease and if your artery disease is impairing your wound healing for the leg ulcer documented in this encounterLicking [facility] Hospital10-03-2022 History of Present illness Narrative* No Reeder DO - 11/17/2021 3:53 PM EDT Images from the original note were not included. [facility] Department of Cardiovascular Medicine SECTION OF VASCULAR MEDICINE OUTPATIENT VISIT DATE November 17, 2021 OUTPATIENT VISIT TYPE ESTABLISHED Follow up regarding: LE DVT Review of history: 76 male with PmHx of renal transplant 03/2021, PVD s/p left AKA, HTN, HLD, CAD s/p CABG, IVC filter (empirically placed), aFib (recently started on Eliquis) transferred from OSH for further managementfor extensive bilateral LE acute DVT. Vascular medicine consulted for assistance with management. We recommended bridging to coumadin due to DOAC failure. Not felt to have phlegmasia. Legs wrapped for edema. Transplant organ patent. Intervention services (IR and vascular surgery) did not recommend invasive intervention for DVT. Subjective: Right foot heel ulcer, seeing wound care. Denies epistaxis, hemoptysis, hematemesis, hematuria, hematochezia or melena. Denies leg pain. Has leg swelling, not using compression wrap. Allergies: is allergic to pyridostigmine bromide. Medications: Current Outpatient Medications Medication Sig tacrolimus IR (PROGRAF) 1 mg capsule Take 1 capsule by mouth twice daily. aspirin, enteric coated (ASPIRIN, ENTERIC COATED) 81 mg EC tablet Take 1 tablet by mouth once daily. atorvastatin (LIPITOR) 40 mg tablet 1 tablet by ORAL/FEEDING TUBE route daily at bedtime. warfarin (COUMADIN) 3 mg tablet Take 1 tablet by mouth once daily. insulin glargine (LANTUS SOLOSTAR, BASAGLAR KWIKPEN) 100 unit/mL (3 mL) Inject 13 Units subcutaneously every morning. insulin lispro-aabc (LYUMJEV KWIKPEN U-100 INSULIN) 100 unit/mL insulin pen Inject subcutaneously three times daily before meals. Take 5 units before breakfast and 8 units before lunch and dinner plus sliding scale. diclofenac (VOLTAREN) 1 % topical gel Apply to affected area once daily as needed. krill oil 500 mg cap Take 500 mg by mouth every evening. predniSONE (DELTASONE) 5 mg tablet TAKE 1 TABLET BY MOUTH EVERY DAY traMADol (ULTRAM) 50 mg tablet Take 1 tablet by mouth twice daily as needed for pain. furosemide (LASIX) 20 mg tablet Take 1 tablet by mouth once daily. polyethylene glycol 3350 (MIRALAX ORAL) Take 17 g by mouth once daily as needed. vit A/C/E ac/ZnOx/cupric oxide (EYE VITAMIN AND MINERALS ORAL) Take by mouth. mycophenolate mofetil (CELLCEPT) 250 mg capsule TAKE 2 CAPSULES BY MOUTH TWICE DAILY. sulfamethoxazole-trimethoprim (SEPTRA) 400-80 mg per tablet Take by mouth. Take one (1) tablet -- latanoprost(XALATAN 0.005 % EYE DROPS) Use 1 Drop in both eyes daily at bedtime. MULTIVITAMIN TABLET Take one(1) tablet daily. No current facility-administered medications for this visit. Physical exam: BP 104/59 (BP Site: Right Arm) Pulse 86 Ht 193 cm (6' 4 ) Wt 111.6 kg (246 lb) SpO2 97% BMI 29.94 kg/m General: Alert and oriented, in no acute distress, pleasant mood. Skin: Healthy, intact, no ulcerations, no rashes. HEENT: Head normocephalic, sclera anicteric without injection. Cardiovascular: Heart has a regular rate and rhythm without murmur. Respiratory: Lungs clear auscultation bilaterally. Musculoskeletal: No cyanosis or clubbing. Peripheral vascular: Radial, dorsalis pedis, and posterior tibial pulses 1+/2 right foot. Lower extremities: left AKA. Right leg moderate pitting edema, right heel ulcer in wound dressing. Stasis changes. Imaging US venous duplex left arm 09/30/21 IMPRESSION RIGHT SIDE - DEEP VEINS Spontaneous and respirophasic flow noted in the subclavian vein. LEFT SIDE - DEEP VEINS Negative for acute deep vein thrombosis. US renal artery bilateral 09/25/2021 IMPRESSION RIGHT RENAL Right renal artery: 0-59% stenosis. No evidence of hemodynamically significant stenosis. Right iliac artery: Patent. Transplant renal vein appears patent at distal. Unable to visualize origin to mid vessel. Right external iliac vein appears occluded on today's exam. Inferior vena cava is patent at distal, very limited visualization due to patient not NPO. US venous duplex legs bilateral 09/25/2021 IMPRESSION RIGHT SIDE - DEEP VEINS Acute proximal deep vein thrombosis in the distal external iliac vein. Acute proximal deep vein thrombosis in the common femoral vein. Acute proximal deep vein thrombosis in the femoral vein from proximal to distal. Acute proximal deep vein thrombosis in the popliteal vein. Acute calf deep vein thrombosis in the posterior tibial veins from proximal to mid. Acute calf deep vein thrombosis in the peroneal veins at the proximal calf. Only segments visualized of the peroneal veins. RIGHT SIDE - SUPERFICIAL VEINS Acute superficial thrombophlebitis in the great saphenous vein. Thrombus noted from junction to proximal thigh. Acute superficial thrombophlebitis in the small saphenous vein at the proximal calf. LEFT SIDE - DEEP VEINS Acute proximal deep vein thrombosis in the distal external iliac vein. Acute proximal deep vein thrombosis in the common femoral vein. Acute proximal deep vein thrombosis in the femoral vein from proximal to mid. Patient has a left above knee amputation. PVR legs right 09/25/21 IMPRESSION RIGHT SIDE Resting right ankle brachial index: 0.45 Right toe brachial index: 0.28 Abnormal ankle brachial index at rest diagnostic of peripheral artery disease. Abnormal toe brachial index at rest is evidence of peripheral artery disease. Right ankle: Moderate disease at rest based on ankle brachial index. However ankle tracings appear severely dampened and posterior tibial pulse is not audible. LEFT SIDE Resting left ankle brachial index: Above knee amputation. Labs Component Latest Ref Rng & Units 10/01/2021 WBC 3.70 - 11.00 k/uL 6.57 RBC 4.20 - 6.00 m/uL 4.17 (L) Hemoglobin 13.0 - 17.0 g/dL 13.2 Hematocrit 39.0 - 51.0 % 39.3 MCV 80.0 - 100.0 fL 94.2 MCH 26.0 - 34.0 pg 31.7 MCHC 30.5 - 36.0 g/dL 33.6 RDW-CV 11.5 - 15.0 % 12.8 Platelet Count 150 - 400 k/uL 208 MPV 9.0 - 12.7 fL 10.7 Absolute nRBC <0.01 k/uL <0.01 Glucose 74 - 99 mg/dL 115 (H) BUN 9 - 24 mg/dL 39 (H) Creatinine 0.73 - 1.22 mg/dL 1.31 (H) Sodium 136 - 144 mmol/L 130 (L) Potassium 3.7 - 5.1 mmol/L 4.6 Chloride 97 - 105 mmol/L 100 CO2 22 - 30 mmol/L 20 (L) Anion Gap 9 - 18 mmol/L 10 Calcium 8.5 - 10.2 mg/dL 9.0 eGFR >=60 mL/min/1.73m 56 (L) Impression #PAD #Nonhealing ulcer, right heel #S/p left AKA Moderately dampened right leg waveforms. Has right heel ulcer. Ddx includes pressure ulcer vs arterial. Will refer to interventional cardiology. Obtain arterial duplex right leg #Acute right iliac/femoral/pop DVT #Anticoagulation management No findings of phlegmasia on exam today. On coumadin. F/up DVT scan. Leg elevation. No Reeder DO, [facility] Vascular Medicine [place] [id number] History of Past illness Narrative* Problem Noted Date Resolved Date Altered tissue perfusion documented as of this encounter (statuses as of 09/30/2021) [address]16-2022 History of Past illness Narrative* Problem Noted Date Resolved Date Altered tissue perfusion documented as of this encounter (statuses as of 10/09/2021) [address]16-2022 History of Past illness Narrative* Problem Noted Date Resolved Date Altered tissue perfusion documented as of this encounter (statuses as of 11/18/2021) [address]16-2022 History of Past illness Narrative* Problem Noted Date Resolved Date Altered tissue perfusion documented as of this encounter (statuses as of 12/01/2021) [address]16-2022 History of Past illness Narrative* Problem Noted Date Resolved Date Altered tissue perfusion documented as of this encounter (statuses as of 12/05/2021) [address]16-2022 History of Past illness Narrative* Problem Noted Date Resolved Date Altered tissue perfusion documented as of this encounter (statuses as of 12/08/2021) [address]16-2022 History of Past illness Narrative* Problem Noted Date Resolved Date Altered tissue perfusion 16/2 022 documented as of this encounter (statuses as of 12/08/2021) [address]16-2022 History of Past illness Narrative* Problem Noted Date Resolved Date Altered tissue perfusion 16/2 022 documented as of this encounter (statuses as of 12/12/2021) [address]16-2022 History of Past illness Narrative* Problem Noted Date Resolved Date Altered tissue perfusion 16/2 022 documented as of this encounter (statuses as of 12/15/2021) [address]16-2022 History of Past illness Narrative* Problem Noted Date Resolved Date Altered tissue perfusion 16/2 022 documented as of this encounter (statuses as of 12/16/2021) [address]16-2022 History of Past illness Narrative* Problem Noted Date Resolved Date Altered tissue perfusion 16/2 022 documented as of this encounter (statuses as of 12/31/2021) [address]16-2022 History of Past illness Narrative* Problem Noted Date Resolved Date Altered tissue perfusion 16/2 022 documented as of this encounter (statuses as of 01/13/2022) [address]16-2022 History of Past illness Narrative* Problem Noted Date Resolved Date Altered tissue perfusion 16/2 022 documented as of this encounter (statuses as of 01/20/2022) [address]16-2022 History of Past illness Narrative* Problem Noted Date Resolved Date Altered tissue perfusion 16/2 022 documented as of this encounter (statuses as of 02/06/2022) [address]16-2022 History of Past illness Narrative* Problem Noted Date Resolved Date Altered tissue perfusion 16/2 022 documented as of this encounter (statuses as of 02/20/2022) [address]16-2022 History of Past illness Narrative* Problem Noted Date Resolved Date Altered tissue perfusion /16/2 022 documented as of this encounter (statuses as of 02/26/2022) [address]16-2022 History of Past illness Narrative* Problem Noted Date Resolved Date Altered tissue perfusion /16/2 022 documented as of this encounter (statuses as of 02/27/2022) [address]16-2022 History of Past illness Narrative* Problem Noted Date Resolved Date Altered tissue perfusion documented as of this encounter (statuses as of 03/21/2022) [address]16-2022 History of Past illness Narrative* Problem Noted Date Resolved Date Altered tissue perfusion documented as of this encounter (statuses as of 03/30/2022) [address]16-2022 History of Past illness Narrative* Problem Noted Date Resolved Date Altered tissue perfusion documented as of this encounter (statuses as of 04/06/2022) [address]16-2022 History of Past illness Narrative* Problem Noted Date Resolved Date Altered tissue perfusion documented as of this encounter (statuses as of 05/13/2022) [address]16-2022 History of Past illness Narrative* Problem Noted Date Diagnosed Date Resolved Date Altered tissue perfusion documented as of this encounter (statuses as of 2022) [facility]-16-2022 History of Past illness Narrative* Problem Noted Date Diagnosed Date Resolved Date Altered tissue perfusion documented as of this encounter (statuses as of 10/29/2022) [facility]08-16-2022 Miscellaneous Notes* Telephone Encounter - Katina Duque - 09/30/2021 11:58 AM EDT Patient's request for medication is as follows: Requested Prescriptions Pending Prescriptions Disp Refills tacrolimus IR (PROGRAF) 1 mg capsule [Pharmacy Med Name: TACROLIMUS 1 MG CAPSULE (IR)] 60 capsule 11 Sig: TAKE 1 CAPSULE BY MOUTH TWICE A DAY*Z94.0* Please approve the above prescription(s) to electronically send to pharmacy. Katina Duque [facility] Miscellaneous Notes* Telephone Encounter - Van Olivarez APRN.CNP - 07/15/2021 9:50 AM EDT The following approved medication requests have been transmitted electronically. Signed Prescriptions Disp Refills predniSONE (DELTASONE) 5 mg tablet 90 tablet 3 Sig: TAKE 1 TABLET BY MOUTH EVERY DAY RILEY: No Authorizing Provider: VAN OLIVAREZ APRN.CNP * Telephone Encounter - Rosibel Yehleela Adm - 07/15/2021 9:32 AM EDT Patient phones requesting refills as follows: Pending Prescriptions Disp Refills PREDNISONE 5 MG TABLET 90 tablet 3 Sig: TAKE 1 TABLET BY MOUTH EVERY DAY RILEY: Yes Please review and advise. Rosibel Link Adm documented [facility] Miscellaneous Notes* Telephone Encounter - Van Olivarez APRN.CNP - 06/05/2021 4:46 PM EDT Spoke with pt regarding latest results, scr. at baseline. TAC level 8.6 prev two levels in 5 range.He believes latest level would be 12hr trough. No changes for now, if next level >7, can consider if reduction appropriate. He understands. Van Olivarez APRN.CNP [facility] Diagnosis Screening for genitourinary condition Screening for other and unspecified genitourinary condition documented in this encounter [facility] note* Diagnosis Acute deep vein thrombosis (DVT) of proximal end of right lower extremity (HCC)- Primary PAD (peripheral artery disease) ([facility]) Peripheral vascular disease, unspecified Nonhealing ulcer of heel ([facility]) Anticoagulation management encounter Encounter for therapeutic drug monitoring documented in this encounter [facility] note* Diagnosis Encounter for prophylactic measures, unspecified- Primary documented in this encounter [facility] note* Diagnosis Kidney replaced by transplant- Primary documented in this encounter [facility] note* Diagnosis MRSA bacteremia- Primary Bacteremia Diabetic foot ulcer with osteomyelitis (HCC) Type II or unspecified type diabetes mellitus with other specified manifestations, not stated as uncontrolled ILIANA (acute kidney injury) (HCC) Acute kidney failure, unspecified [facility] Diagnosis Kidney replaced by transplant- Primary 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 medical terminologist current use of immunosuppressive drug documented in this encounter [facility] note* Diagnosis Hx of BKA, right (HCC)- Primary PAD (peripheral artery disease) (HCC) Peripheral vascular disease, unspecified 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) Type II or unspecified type diabetes mellitus with renal manifestations, uncontrolled(250.42) Type II or unspecified type diabetes mellitus with renal manifestations, uncontrolled Type 2 diabetes mellitus with diabetic neuropathy, with long-term current use of insulin (HCC) Type 2 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, with long-term current use of insulin ([facility]) Paroxysmal atrial fibrillation ([facility]) Atrial fibrillation documented in this encounter [facility] note* Diagnosis Screening for genitourinary condition Screening for other and unspecified genitourinary condition documented in this encounter [facility] note* Diagnosis Onset Date Resolution Status At high risk for skin breakdown chronic Diabetes chronic Fecal incontinence chronic Limited mobility chronic Poor appetite chronic Pressure ulcer of sacral region, unstageable chronic Candidiasis resolved [facility] Work Phone: Evaluation noteNo InformationNort ANDalyze Other Evaluation note* Diagnosis Kidney replaced by transplant- Primary documented in this encounter [facility] general Narrative - Reported* Type Description Date Medical History type I diabetes Medical History type II diabetes Medical History Hypertension Medical History CRF Medical History diabetic neuropathy Medical History peripheral vascular disease Medical History osteomylitis Medical History Common Variable Immunodeficiency Medical History hyperlipidemia Medical History Atrial fibrillation Medical History A flutter Medical History fracture Medical History chronic thrombus LE Medical History NSTEMI Medical History B/L Rib fracture Surgical History cataract 2014 Surgical History renal transplant 1998 Surgical History ORIF R/fibula/med malleolus Surgical History CABG Surgical History IVC filter 2014 Surgical History Left BKA 2002 Surgical History PM Surgical History L1/2 Surgical History AMPUTATION OF LOWER LEG 2021 Surgical History PART REMOVAL OF ANKLE/HEEL 2021 Surgical History INS ENDOVAS VENA CAVA FILTR 202 2 Surgical History COLONOSCOPY 1995,2001, 2014 Hospitalization History see above [place] Other Progress note Author Sadia Aguilar [facility] July 20, 2022 1:48pm Note Date/Time July 20, 2022 1:48p m [facility] [address] [place] [address] Wound Center Provider Note Signed Patient: Alex Almonte MR#: [id number] : 1945 Acct:[id number] Age/Sex: 76 / M Copies to: Devon Moreira,DO Sadia Aguilar, DENTAL EQUIPMENT REPAIRER~ HPI Date of Visit Date of Visit: Date of Service: 07/20/2022 Time of Service: 13:46 Narrative HPI: 12/30/21 Alex is a 76 year old male presenting to [facility] wound care for aninitial visit for eval and treatment of a sacral/coccyx area pressure ulcer. He resides at [facility]. There is an MOTOR BUILDER WINDER present for the visit. Medicalhoney gel will be use for debridement and antimicrobial purposes. He will need to offload pressure and have a well balanced diet that is somewhat higher in protein and amino acids and lower in inflammation foods. Labs were ordered to check his nutrition status. Alex will be seen back in a few weeks. 01/20/22 orders are more or less the same, an xray was ordered to check for bone infection d/t the depth change, we had to reorder labs since it appears that those were never done or at least they were not faxed to us as requested, he mayneed a surgical consult depending on what the xray shows, he needed cleaned up today from a large BM- this was done by 3 nursing staff members, follow up in few weeks 02/10/22 orders kept the same, xray result was negative for infection in the bone, will probably repeat this at the next visit if no improvement, nutrition labs are low and so dietitian consult was ordered, still might need surgery consult, again came to appt with large BM in his brief that was cleaned by this video games storywriter as well as another nursing staff member, few weeks to follow up 03/03/22 orders changed to iodoflex, ulcer is better today, 3 week appt, do not see notes as to what the dietitian did for the low lab values 03/24/22 some improvement, orders changed to collagen silver, 3-4 week appt 04/14/22 improved again, orders the same, 4 week appt 05/11/22 continues to improve, orders the same, 4 week appt, no signs of infection, discussed his blood sugars and his appetite, 15 minutes total was spent on eval and treatment and education of the patient 06/08/22 much smaller and is trying to close from the outside instead of from theinside, silver nitrate used on the rolled edges, 3-4 week appt, orders changed to strip gauze packing 06/29/22 stable, orders changed to collagen silver packing, 3-4 week appt 07/20/22 healed, today, says that 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 and will be going back for more removal of more cancer, no need to return here since he is healed Subjective Pain Coccyx: Pain Intensity: 0 Wound/Ulcer History When did wound start?: 4 weeks ago- from initial visit here Mode of Arrival/ Threat Monitoring Analyst: Facility vehicle Assistive Device Used Today: Wheelchair and Indra Lives with:: Care/Nursing Facility Appetite Description: Within Normal Limits Who helps w/ dressing change?: Nursing Facility Why Do You Need Help?: Can't Reach Ulcer, Limited mobility and Taxing effort to leave home Smoking Status: Former smoker [facility] Medical History (Updated 03/03/22 @ 14:41 by Sadia Aguilar APRN) Below-knee amputation of right lower extremity Diabetes Fistula Left below-knee amputee Paroxysmal atrial fibrillation Peripheral vascular disease Family History Father Aneurysm Father Parkinsons disease Social History Smoking Status: Former smoker Tobacco Type: cigarettes Substance Use Type: None Grafts History of Graft History of Graft?: No Exam Physical Exam Vital Signs: Temp Pulse Resp BP O2 Del Method 97.4 F L 67 20 98/50 L Room Air 07/20/22 13:35 07/20/22 13:35 07/20/22 13:35 07/20/22 13:35 07/20/22 13:35 Const General: cooperative, comfortable and no acute distress Nutritional Appearance: overweight Orientation: alert, awake and oriented x3 Lower/Upper Extremity Exam Vascular Exam-Pulses Right Brachial: Pulse Assessment Method: NIBP Objective Meds/Allergies Home Medications insulin aspart U-100 100 unit/mL subcutaneous solution 100 sliding scale dose subcut TIDWM 01/23/19 [History Confirmed 05/11/22] insulin glargine 100 unit/mL subcutaneous solution 6 units subcut DAILY 01/23/19[History Confirmed 05/11/22] latanoprost 0.005 % eye drops 1 drp Eye-Both DAILY 01/23/19 [History Confirmed 05/11/22] prednisone 5 mg tablet 5 mg PO DAILY 01/23/19 [History Confirmed 05/11/22] sulfamethoxazole 400 mg-trimethoprim 80 mg tablet 1 tab PO 3XW 01/23/19 [History Confirmed 05/11/22] tacrolimus 1 mg capsule, immediate-release 2 cap PO BID 01/23/19 [History Confirmed 05/11/22] aspirin 81 mg tablet,delayed release 81 mg PO DAILY 12/30/21 [History Confirmed 05/11/22] atorvastatin 40 mg tablet (Lipitor) 40 mg PO DAILY 12/30/21 [History Confirmed 05/11/22] oxycodone 5 mg capsule 5 mg PO Q4H PRN Pain 12/30/21 [History Confirmed 05/11/22] polyethylene glycol 3350 17 gram/dose oral powder (Miralax) 17 g PO DAILY 12/30/21 [History Confirmed 05/11/22] torsemide 20 mg tablet 20 mg PO DIRECTED 12/30/21 [History Confirmed 05/11/22] warfarin 1 mg tablet 1 mg PO 3XW 12/30/21 [History Confirmed 05/11/22] warfarin 2 mg tablet 2 mg PO QTUTHSASU 12/30/21 [History Confirmed 05/11/22] potassium chloride 10 mEq tablet,extended release (Klor-Con) 10 meq PO DAILY 01/20/22 [History Confirmed 05/11/22] Allergies No Known Allergies Allergy (Unverified 01/20/19 08:48) Wound/Ulcer Sacrum: Type: Pressure/Injury Ulcer Pressure Ulcer/Injury Staging: Unstageable Bed Appearance: Other Length (cm): 0 Width (cm): 0 Depth (cm): 0 CM Sq: 0.000 Surrounding Tissue Appearance: Hyperpigmented Surrounding Tissue Temp: Warm Drainage Amount: None Drainage Odor: No Odor Results Labs: Laboratory Last Values POC Glucose 162 mg/dl 04/14/22 14:23 POC Glucose Comment Glu2: cleaned meter 04/14/22 14:23 Height: 6 ft 4 in Assessment/Plan Assessment/Plan (1) Pressure ulcer of sacral region, unstageable: Code(s): L89.150 - Pressure ulcer of sacral region, unstageable Status: Chronic (2) Diabetes: Code(s): E11.9 - Type 2 diabetes mellitus without complications Status: Chronic (3) Limited mobility: Code(s): Z74.09 - Other reduced mobility Status: Chronic (4) Poor appetite: Code(s): R63.0 - Anorexia Status: Chronic (5) At high risk for skin breakdown: Assessment/Problem Details: d/t limited mobility and double leg amputee Code(s): Z91.89 - Other specified personal risk factors, not elsewhere classified Status: Chronic (6) Fecal incontinence: Code(s): R15.9 - Full incontinence of feces Status: Chronic Time spent with patient Time Spent With Patient (min): 10 Dictated By: Sadia Aguilar APRN DD/ 1346 Signed By: <Electronically signed by DAVID Aguilar> 07/20/22 1348 [facility] Work Phone: Reason for referral (narrative)* Outpatient Procedure (Routine) - Authorized Specialty Diagnoses / Procedures Referred By Felicia carreno Referred To Contact [facility] [place] Diagnoses PAD (peripheral artery disease) (HCC) Nonhealing ulcer of heel (HCC) Procedures US LEG ARTERIAL PERIPH UNL VAS LAB DUP-SCAN LXTR ART/ARTL BPGS UNI/LMTD STUDY No Reeder DO [address] [place] [address] [facility] [place] [address] Referral ID Status Reason Start Date Expiration Date Visits Requested Visits Authorized [id number] Authorized Auto-Generat ed Referral 11/17/2021 11/17/2022 1 1 * Outpatient Procedure (Routine) - Authorized Specialty Diagnoses / Procedures Referred By Contac t Referred To Contact [facility] [place] Diagnoses Acute deep vein thrombosis (DVT) of proximal end of right lower extremity (HCC) Procedures US LEG VEIN DVT UNL VAS LAB DUP-SCAN XTR VEINS UNILATERAL/LIMITED STUDY No Reeder DO [address] [id number] [facility] [address] [place] [id number] Referral ID Status Reason Start Date Expiration Date Visits Requested Visits Authorized [id number] Authorized Auto-Generat ed Referral 11/17/2021 11/17/2022 1 1 * Consult, Test, Treat (Routine) - Authorized Specialty Diagnoses / Procedures Referred By Contac t Referred To Contact Cardiology Diagnoses PAD (peripheral artery disease) (HCC) Nonhealing ulcer of heel (HCC) Procedures CONSULT TO CARDIOLOGY OFFICE/OUTPATIENT [facility] 60-74 MINUTES Savanah Marcelo MD [address] [phone] Referral ID Status Reason Start Date Expiration Date Visits Requested Visits Authorized [id number] Authorized PCP Requested Referral 11/17/2021 11/17/2022 1 1 [facility] Summary Purpose Family History Relationship Condition Age at Onset Recorded Date/T kartik father Aneurysm Unknown father Parkinson's disease Unknown Advance Directives Documents on File Type Date Recorded 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 Advance Directive(s) Latest Code Status on File Code Status Date Activated Date Inactivated Comments 04/26/2004 12:20 PM 04/26/2004 1:20 PM Latest Code Status on File Code Status Date Activated Date Inactivated Comments DNR-CCA 09/26/2021 11:56 AM DNR Order Discussed With: Patient Full Code 09/24/2021 1:35 PM 09/26/2021 11:56 AM Full Code Order Discussed With: Patient 04/26/2004 12:20 PM 04/26/2004 1:20 PM Latest Code Status on File Code Status Date Activated Date Inactivated Comments DNR-CCA 09/26/2021 11:56 AM 10/01/2021 2:18 PM Latest Code Status on File Code Status Date Activated Date Inactivated Comments DNR-CCA 09/26/2021 11:56 AM 10/01/2021 2:18 PM Full Code 09/24/2021 1:35 PM 09/26/2021 11:56 AM 04/26/2004 12:20 PM 04/26/2004 1:20 PM Latest Code Status on File Code Status Date Activated Date Inactivated Comments Full Code 12/08/2021 1:14 PM Full Code Order Discussed With: Patient and Surr ogate Decision Maker Surrogate Decision Maker Name: Munira Brothers Surrogate Decision Maker Surrogate Decision Maker Relationship: M ajority of Adult Siblings (customer engagement representative) DNR-CCA 09/26/2021 11:56 AM 10/01/2021 2:18 PM Latest Code Status on File Code Status Date Activated Date Inactivated Comments Full Code 12/08/2021 1:14 PM 12/12/2021 12:04 AM Advance Directive Response Recorded Date/ Time Advance Directives No January 23, 2019 10:06am Latest Code Status on File Code Status Date Activated Date Inactivated Comments Full Code 12/08/2021 1:14 PM 12/12/2021 12:04 AM Question Answer Comments Full Code Order Discussed With: Patient and Surrogate Decision Maker Surrogate Decision Maker Name: Munira Brothers Surrogate Decision Maker Surrogate Decision Maker Relationship: Majority of Adult Siblings (customer engagement representative) Code Status History Code Status Date Activated Date Inactivated Comments DNR-CCA 09/26/2021 11:56 AM 10/01/2021 2:18 PM Question Answer Comments DNR Order Discussed With: Patient Full Code 09/24/2021 1:35 PM 09/26/2021 11:56 AM Question Answer Comments Full Code Order Discussed With: Patient None 04/26/2004 12:20 PM 04/26/2004 1:20 PM Medications Administered Section Inactive Administered Medications - up to 3 most recent administrations Medication Order MAR Action Action Date Dose Rate Site lidocaine (PF) 10 mg/mL (1 %) injection (XYLOCAINE) SUBCUTANEOUS, X (OR/PROCEDURE) PRN, Starting on Wed01/12/22 at 1032, Until Wed01/13/22 at 0303, Intraprocedure Given 01/12/2022 10:32 AM EST 5 mL Ch est Chief Complaint and Reason for Visit Chief Complaint Open Wound ([facility]) Reason for Visit At high risk for ski n breakdown Diabetes Fecal incontinence Limited mobility Poor appetite Pressure ulcer of sacral region, unstageable Candidiasis Additional Source Comments (unrecognized sect ion and content) No Status Records FoundNo Status Records FoundNo Status Records FoundNo Status Records FoundNo Status Records Found INFORMATION SOURCE (unrecogn ized section and content) DATE CREATED AUTHOR 02/20/2021 [facility] DATE CREATED AUTHOR AUTHOR'S ORGANIZ ATION 07/25/2022 [facility] DATE CREATED AUTHOR AUTHOR'S ORGANIZ ATION 08/16/2022 [facility] DATE CREATED AUTHOR AUTHOR'S ORGANIZ ATION 09/17/2022 [facility] DATE CREATED AUTHOR AUTHOR'S ORGANIZ ATION 01/14/2023 [facility] Source Comments (unrecognize d section and content) In the event this informatio n is protected by the Federal Confidentiality of Alcohol and Drug Abuse Patient Records regulations: The Federal rules restrict any use of the information to criminally investigate or prosecute any alcohol or drug abuse patient.[facility] the event this information is protected by the Federal Confidentiality of Alcohol and Drug Abuse Patient Records regulations: The Federal rules restrict any use of the information to criminally investigate or prosecute any alcohol or drug abuse patient.[facility] the event this information is protected by the Federal Confidentiality of Alcohol and Drug Abuse Patient Records regulations: The Federal rules restrict any use of the information to criminally investigate or prosecute any alcohol or drug abuse patient.[facility] the event this information is protected by the Federal Confidentiality of Alcohol and Drug Abuse Patient Records regulations: The Federal rules restrict any use of the information to criminally investigate or prosecute any alcohol or drug abuse patient.[facility] the event this information is protected by the Federal Confidentiality of Alcohol and Drug Abuse Patient Records regulations: The Federal rules restrict any use of the information to criminally investigate or prosecute any alcohol or drug abuse patient.[facility] HospitalIn the event this information is protected by the Federal Confidentiality of Alcohol and Drug Abuse Patient Records regulations: The Federal rules restrict any use of the information to criminally investigate or prosecute any alcohol or drug abuse patient.[facility] HospitalIn the event this information is protected by the Federal Confidentiality of Alcohol and Drug Abuse Patient Records regulations: The Federal rules restrict any use of the information to criminally investigate or prosecute any alcohol or drug abuse patient.[facility] HospitalIn the event this information is protected by the Federal Confidentiality of Alcohol and Drug Abuse Patient Records regulations: The Federal rules restrict any use of the information to criminally investigate or prosecute any alcohol or drug abuse patient.[facility] HospitalIn the event this information is protected by the Federal Confidentiality of Alcohol and Drug Abuse Patient Records regulations: The Federal rules restrict any use of the information to criminally investigate or prosecute any alcohol or drug abuse patient.[facility] HospitalIn the event this information is protected by the Federal Confidentiality of Alcohol and Drug Abuse Patient Records regulations: The Federal rules restrict any use of the information to criminally investigate or prosecute any alcohol or drug abuse patient.[facility] HospitalIn the event this information is protected by the Federal Confidentiality of Alcohol and Drug Abuse Patient Records regulations: The Federal rules restrict any use of the information to criminally investigate or prosecute any alcohol or drug abuse patient.[facility] HospitalIn the event this information is protected by the Federal Confidentiality of Alcohol and Drug Abuse Patient Records regulations: The Federal rules restrict any use of the information to criminally investigate or prosecute any alcohol or drug abuse patient.[facility] HospitalIn the event this information is protected by the Federal Confidentiality of Alcohol and Drug Abuse Patient Records regulations: The Federal rules restrict any use of the information to criminally investigate or prosecute any alcohol or drug abuse patient.[facility] HospitalIn the event this information is protected by the Federal Confidentiality of Alcohol and Drug Abuse Patient Records regulations: The Federal rules restrict any use of the information to criminally investigate or prosecute any alcohol or drug abuse patient.[facility]In the event this information is protected by the Federal Confidentiality of Alcohol and Drug Abuse Patient Records regulations: The Federal rules restrict any use of the information to criminally investigate or prosecute any alcohol or drug abuse patient.[facility] HospitalIn the event this information is protected by the Federal Confidentiality of Alcohol and Drug Abuse Patient Records regulations: The Federal rules restrict any use of the information to criminally investigate or prosecute any alcohol or drug abuse patient.[facility] HospitalIn the event this information is protected by the Federal Confidentiality of Alcohol and Drug Abuse Patient Records regulations: The Federal rules restrict any use of the information to criminally investigate or prosecute any alcohol or drug abuse patient.[facility] HospitalIn the event this information is protected by the Federal Confidentiality of Alcohol and Drug Abuse Patient Records regulations: The Federal rules restrict any use of the information to criminally investigate or prosecute any alcohol or drug abuse patient.[facility] HospitalIn the event this information is protected by the Federal Confidentiality of Alcohol and Drug Abuse Patient Records regulations: The Federal rules restrict any use of the information to criminally investigate or prosecute any alcohol or drug abuse patient.[facility] HospitalIn the event this information is protected by the Federal Confidentiality of Alcohol and Drug Abuse Patient Records regulations: The Federal rules restrict any use of the information to criminally investigate or prosecute any alcohol or drug abuse patient.[facility] HospitalIn the event this information is protected by the Federal Confidentiality of Alcohol and Drug Abuse Patient Records regulations: The Federal rules restrict any use of the information to criminally investigate or prosecute any alcohol or drug abuse patient.[facility] HospitalIn the event this information is protected by the Federal Confidentiality of Alcohol and Drug Abuse Patient Records regulations: The Federal rules restrict any use of the information to criminally investigate or prosecute any alcohol or drug abuse patient.[facility] HospitalIn the event this information is protected by the Federal Confidentiality of Alcohol and Drug Abuse Patient Records regulations: The Federal rules restrict any use of the information to criminally investigate or prosecute any alcohol or drug abuse patient.[facility] HospitalIn the event this information is protected by the Federal Confidentiality of Alcohol and Drug Abuse Patient Records regulations: The Federal rules restrict any use of the information to criminally investigate or prosecute any alcohol or drug abuse patient.[facility] HospitalIn the event this information is protected by the Federal Confidentiality of Alcohol and Drug Abuse Patient Records regulations: The Federal rules restrict any use of the information to criminally investigate or prosecute any alcohol or drug abuse patient.[facility] HospitalIn the event this information is protected by the Federal Confidentiality of Alcohol and Drug Abuse Patient Records regulations: The Federal rules restrict any use of the information to criminally investigate or prosecute any alcohol or drug abuse patient.[facility] Reason for Visit (unrecogniz ed section and content) BCC Reason Comments Results Reason Comments Refill Request Reason Comments Patient Update evusheld discussion Reason Comments CoPat Start copat stop 12/27/21 Reason Comments CoPat Agency Reason Comments Medication Question Reason Comments Orders Reason Comments Infection Follow Up Reason Comments Renal Txp Follow Up Reason Comments Appointment Reason Comments Results [place] 23.9 Reason Comments Wound Check Reason Comments Rx Refills Reason Onset Date Comments Refill Request 02/18/2022 Reason Comments Med Change Request Care Teams (unrecognized sec tion and content) [employer] Consultant Relationship Specialty Start Date End Date Devon Moreira, DO [address] [facility] [place] [address] PCP - General 05/27/00 [employer] Consultant Relationship Specialty Start Date End Date Devon Moreira, DO [address] [facility] [place] [address] PCP - General 05/27/00 [employer] Consultant Relationship Specialty Start Date End Date Devon Moreira, DO [address] [facility] [place] [address] PCP - General 05/27/00 [employer] Consultant Relationship Specialty Start Date End Date Devon Moreira, DO [address] [facility] [place] [address] PCP - General 05/27/00 [employer] Consultant Relationship Specialty Start Date End Date Devon Moreira, DO [address] [facility] [place] [address] PCP - General 05/27/00 [employer] Consultant Relationship Specialty Start Date End Date Devon Moreira, DO [address] [facility] [place] [address] PCP - General 05/27/00 [employer] Consultant Relationship Specialty Start Date End Date Devon Moreira, DO [address] [place] [address] PCP - General 05/27/00 [employer] Consultant Relationship Specialty Start Date End Date Devon Moreira, DO [address] [place] [address] PCP - General 05/27/00 [employer] Consultant Relationship Specialty Start Date End Date Devon Moreira, DO [address] [place] [address] PCP - General 05/27/00 [employer] Consultant Relationship Specialty Start Date End Date Devon Moreira, DO [address] [place] [address] PCP - General 05/27/00 [employer] Consultant Relationship Specialty Start Date End Date Devon Moreira, DO [address] [place] [address] PCP - General 05/27/00 [employer] Consultant Relationship Specialty Start Date End Date Devon Moreira, DO [address] [place] [address] PCP - General 05/27/00 [employer] Consultant Relationship Specialty Start Date End Date Devon Moreira, DO [address] [place] [address] PCP - General 05/27/00 [employer] Consultant Relationship Specialty Start Date End Date Devon Moreira, DO [address] [place] [address] PCP - General 05/27/00 [employer] Consultant Relationship Specialty Start Date End Date Devon Moreira, DO [address] [place] [address] PCP - General 05/27/00 [employer] Consultant Relationship Specialty Start Date End Date Devon Moreira, DO [address] [facility] [place] [address] PCP - General 05/27/00 [employer] Consultant Relationship Specialty Start Date End Date Devon Moreira, DO [address] [place] [facility] [place] [address] PCP - General 05/27/00 [employer] Consultant Relationship Specialty Start Date End Date Devon Moreira, DO [address] [place] [facility] [place] [address] PCP - General 05/27/00 [employer] Consultant Relationship Specialty Start Date End Date Devon Moreira, DO [address] [place] [facility] [place] [address] PCP - General 05/27/00 Team Status: Active Member Role Status Dates Devon Moreira DO Primary Care Provider Active Team Status: Inactive Member Role Status Dates Devon Moreira DO Primary Care Provider Active Sadia Aguilar APRN Attending Provider Active [employer] Consultant Relationship Specialty Start Date End Date Devon Moreira DO [address] [facility] [place] [address] PCP - General 05/27/00 [employer] Consultant Relationship Specialty Start Date End Date Devon Moreira DO [address] [place] [address] PCP - General 05/27/00 PRN Active and Recently Administ ered Medications (unrecognized section and content) Medication Order 01/10/2022 01/11/2022 01/12/2022 lidocaine (PF) 10 mg/mL (1 %) injection (XYLOCAINE) SUBCUTANEOUS, X (OR/PROCEDURE) PRN, Starting on 01/12/22 at 1032, Until Wed01/13/22 at 0303, Intraprocedure 1032 (Given - Provid er: Vani Cotrell, DENTAL EQUIPMENT REPAIRER.INSULATION MANAGER) Goals (unrecognized section and content) Goals may be documented in a n alternate section FOR RECORDS PERTAINING TO PATIENTS WHO ARE OR HAVE BEEN ENROLLED IN A CHEMICAL DEPENDENCY/SUBSTANCEABUSE PROGRAM, SOME INFORMATION MAY BE OMITTED. This clinical summary was aggregated from multiple sources. Caution should be exercised in using it in the provision of clinical care. This summary normalizes information from multiple sources, and as a consequence, information in this document may materially change the coding, format and clinical context of patient data. In addition, data may be omitted in some cases. CLINICAL DECISIONS SHOULD BE BASED ON THE PRIMARY CLINICAL RECORDS. [employer] [facility]. provides no warranty or guarantee of the accuracy or completeness of information in this document.
[2023-02-05 09:23] LABS: Basophils Absolute Auto 0.1 10^3/uL (0.0-0.1); Basophils Percent Auto 0.8 % (0.2-2.0); Eosinophils Absolute Auto 0.3 10^3/uL (0.0-0.7); Eosinophils Percent Auto 3.9 % (0.9-7.0); Hematocrit 35.2 % (42.0-54.0); Immature Granulocytes Abs Auto 0.02 10^3/uL (0.00-0.03); Immature Granulocytes Pct Auto 0.3 % (0.0-0.5); Lymphocytes Absolute Auto 2.5 10^3/uL (1.2-3.8); Lymphocytes Percent Auto 33.6 % (20.5-60.0); Mean Corpuscular HGB Conc 31.3 g/dL (29.9-35.2); Mean Corpuscular Hemoglobin 27.8 pg (25.9-34.0); Mean Corpuscular Volume 88.9 fL (80.0-94.0); Mean Platelet Volume 10.2 fL (9.5-13.5); Monocytes Absolute Auto 0.9 10^3/uL (0.3-0.8); Monocytes Percent Auto 11.7 % (1.7-12.0); Neutrophils Absolute Auto 3.7 10^3/uL (1.4-6.5); Neutrophils Percent Auto 49.7 % (43.0-75.0); Platelet Count 208 10^3/uL (150-450); Red Blood Count 3.96 10^6/uL (4.70-6.10); Red Cell Distribution Width 14.2 % (11.0-15.0); White Blood Count 7.5 10^3/uL (4.0-11.0)
[2023-02-05 09:35] LABS: INR 2.37; Prothrombin Time 23.9 sec (9.0-11.6)
[2023-02-05 09:54] LABS: Alanine Aminotransferase 20 U/L (16-63); Albumin Globulin Ratio 0.8; Albumin Level 2.7 g/dL (3.4-5.0); Alkaline Phosphatase 73 U/L (46-116); Anion Gap 12.2; Aspartate Amino Transferase 21 U/L (15-37); BUN Creatinine Ratio 34.2; Bilirubin Total 0.7 mg/dL (0.2-1.0); Calcium 8.7 mg/dL (8.5-10.1); Carbon Dioxide 28.8 mmol/L (21.0-32.0); Chloride 105 mmol/L (98-107); Estimated GFR (African America 54 (>=60); Estimated GFR (Non-African Ame 45 (>=60); Globulin 3.5 g/dL; Glucose 90 mg/dL (74-106); Sodium 142 mmol/L (136-145); Total Protein 6.2 g/dL (6.4-8.2)
[2023-02-09 00:09] LABS: Tacrolimus (FK506), Blood 4.9 ng/mL (2.0-20.0)
== END 2023-02-05 03:30 | disposition home or self-care (01) ==
LOC: LAB 03:29
PROVIDERS: PCP Internal Medicine; Visit Provider Internal Medicine
DX: Z51.81 Encounter for therapeutic drug level monitoring (principal); Z79.01 Long term (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 of anticoagulants
CPT/HCPCS: 36415; 80053; 80197; 85025; 85610

== ENCOUNTER 2023-02-12 00:40 | Outpatient (REF) | payer MEDICARE, OTHER, SELFPAY ==
--- OUTSIDE RECORDS SUMMARY | 2023-02-12 00:49 | XMS_ITS | CCD ---
Author Name Unknown Address [address] [place] [address] Organization [facility] Care Team Providers Care Investigator Narcotics Name Role Phone PROVIDER, UNKNOWN Attending Unavailable [...] Care Unavailable FAGGIONATO, ARTUR Attending Unavailable FAGGIONATO, ARUTR Admitting Unavailable BALL, DR OSORIO Primary Care [...] BALL, DR OSORIO Admitting Unavailable BALL, DR OSROIO Primary Care Unavailable FAWWAD, DIAMOND H Attending [...] Unavailable Ball, DO Osorio Primary Care Provider [phone] DAVID Aguilar Attending Provider [phone] Sadia Aguilar Attending Unavailable Sadia Aguilar Admitting [...] [PYRIDOSTIGMINE BROMIDE] Drug Allergy 2 GI Upset [facility] Work Phone: (1 source) ALLERGIES NOT ON FILE; Translations: [ALLERGIES NOT ON FILE] Propensity to adverse reactions (disorder) [facility] Repository Medications Current Medications Medication Drug Class(es) [...] MEALS January 23, 2019 1:00am K Phos Blanco-Sod Phos Di & Blanco [id number] MG (4 sources) take 155-852 tablets by mouth four times daily take 155-852 tablets by mouth four times daily K Phos Blanco-Sod Phos Di & Blanco 155-852-1 30 MG 1 tablet Orally Four [...] needed. docusate sodium 50 mg / sennosides, half-way 8.6 mg oral tablet (20 sources) Start: [...] by mouth daily with lunch. [place] with lunch 7110 mL 0 12/11/2021 Active Comment on above: Take 237 mL by mouth daily with lunch. 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] Episodic Other aftercare (11 sources) Long-term current use of insulin; Translations: [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] Episodic Other aftercare (10 sources) penitentiary (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 of insulin; Translations: [LONG-TERM CURRENT USE OF INSULIN] Onset: 2 Episodic Other aftercare (5 sources) intermodal truck driver (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 of anticoagulants; Translations: [CABLE REPAIRER CURRNT USE ANTICOAGULANTS] Onset: 3 Episodic Other [...] 07-30-2006 Episodic Other aftercare (2 sources) Other detention (current) drug therapy; Translations: [OTH CABLE REPAIRER CURRENT DRUG THERAPY] Onset: 02-05-2022 Episodic Other aftercare (4 sources) Encounter for orthopedic aftercare following surgical amputation; Translations: [ENC ORTHOPED AFTERCARE FLW SURG AMP] Onset: 02-05-2022 Episodic Other aftercare (4 sources) 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 truck driver (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 of antibiotics; Translations: [CABLE REPAIRER CURRENT USE ANTIBIOTICS] Onset: 12-20-2021 Episodic Other aftercare (1 source) intermodal truck driver (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 of aspirin; Translations: [CABLE REPAIRER CURRENT USE OF ASPIRIN] Onset: 01-19-2022 Episodic [...] Test Name Value Interpretation Reference Range Facility [facility] 12-25-2022 CNPN Telephone (TXCTGL) ALEX ALMONTE ([id number]) 1945 M Date Time Provider Department 12/25/22 KIDNEY TXP COORDINATORS TXCTGL During your visit today, we recorded the following information about you: Duane Ryan 12/25/2022 10:41 AM Signed Labs 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 [employer] Allergies As of Date: 12/25/2022 Noted Allergy [...] by mouth daily with lunch. 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 [place] with lunch aspirin, enteric coated (ASPIRIN, ENTERIC [...] in am? thanks! RF Pts RN at [facility] reports pts sister picks up Rx [...] Apply 0. (more content not included)... Normal [facility] Office Visiton 09-09-2022 Follow-up visit [id number] Alex Almonte Kate 1945 M Date Provider Department Center 09/09/2022 1596-SARTHAK PARNELL CARD Rupal [facility] Family History Problem Relation Age of Onset Cancer Mother Aneurysm Father Cancer Father Parkinsonism Father Family Status - Relation Status Age at Mother Father Level of Service:02740 [place] OFFICE/OUTPATIENT ESTABLISHED MOD MDM 30-39 MIN Normal [facility] Glucose Poct Glucometerson 0 07-20-2022 Commemt1 Glu2: Cleaned Meter Normal [facility] Comment on above: Result Comment: PERF ORMED BY: [facility] [address] [place] [address] PATHOLOGIST NOUGAT CUTTER MACHINE JOSE F ELLIOTT M.D. Performed By: #### G MADY #### Point of Care testing , Glucose [Mass/Vol] 176 mg/dL Normal [facility] Comment on above: Result Comment: [place] Glucose Reference Range is dependent on time and content of last meal. Glucose of more than 200 mg/dL in a nonstressed, ambulatory subject supports the diagnosis of Diabetes Mellitus. Performed By: #### G MADY #### Point of Care testing , FK506 (TACROLIMUS) WHOLE BLO ODon 07-12-2022 Tacrolimus (FK506), Blood 10.9 ng/mL Normal 2.0-20.0 [facility] [place] [facility] Comment on above: Result Comment: Trou gh (immediately following transplant) 15.0 . Trough (steady state, 2 weeks or more after transplant): 3.0 - 8.0 . Performed by LC-MS/MS technology. Performed By: #### F [id number] ####[facility] [address] [place], [place] [address]Dr. Farhat Leal CBC AUTO DIFFon 07-10-2022 BASO # 0.0 103/ul Normal 0.0-0.1 [facility] [place] [facility] Comment on above: Performed By: #### C BC ####[facility] [address] [place] [address]Dr. Farhat Leal Basophils/100 WBC (Bld) 0.5 % Normal 0.2-2.0 [facility] [place] [facility] Comment on above: Performed By: #### C BC ####[facility] [address] [place] [address]Dr. Farhat Leal EO # 0.3 103/ul Normal 0.0-0.7 [facility] Comment on above: Performed By: #### C BC ####[facility] [address] [place] [phone]. Farhat Leal Eosinophils/100 WBC (Bld) 4.9 % Normal 0.9-7.0 [facility] [place] [facility] Comment on above: Performed By: #### C BC ####[facility] T[address]ig[address] [place] [address]Dr. Farhat Leal Erythrocyte distribution width (RBC) [Ratio] 13.8 % Normal 11.0-15.0 [facility] [place] [facility] Comment on above: Performed By: #### C BC ####[facility] [address] [place], [place] [address]Dr. Farhat Leal Hematocrit (Bld) [Volume fraction] 36.6 % Critically low 42.0-54.0 [facility] [place] [facility] Comment on above: Performed By: #### C BC ####[facility] Cs[address] [place], [place] [address]Dr. Farhat Leal Hemoglobin (Bld) [Mass/Vol] 12.2 g/dL Critically low 14.0-18.0 [facility] [place] [facility] Comment on above: Performed By: #### C BC ####[facility] [address] [place], [place] [address]Dr. Farhat Leal IG # 0.01 10e3/ul Normal 0.00-0.03 [facility] [place] [facility] Comment on above: Performed By: #### C BC ####[facility] [address] [place], [place] [address]Dr. Farhat Leal IG % 0.2 % Normal 0.0-0.5 [facility] [place] [facility] Comment on above: Performed By: #### C BC ####[facility] [address] [place], [place] [address]Dr. Farhat Leal LYMPH # 2.2 103/ul Normal 1.2-3.8 [facility] [place] [facility] Comment on above: Performed By: #### C BC ####[facility] [address]ts[address] [place], [place] [address]Dr. Farhat Leal Lymphocytes/100 WBC (Bld) 33.9 % Normal 20.5-60.0 [facility] Comment on above: Performed By: #### C BC ####[facility] [address] [place] [id number]. Farhat Leal MANUAL DIFF REQ NO Normal [facility] Comment on above: Performed By: #### C BC ####[facility] [address] [place] [phone]. Farhat Leal MCH (RBC) [Entitic mass] 31.0 pg Normal 25.9-34.0 [facility] [place] [facility] Comment on above: Performed By: #### C BC ####[facility] [address] [place] [address]Dr. Farhat Leal MCHC (RBC) [Mass/Vol] 33.3 g/dL Normal 29.9-35.2 [facility] Comment on above: Performed By: #### C BC ####[facility] [address]tl[address] [place] [address]Dr. Farhat Elvis MCV (RBC) [Entitic vol] 93.1 fL Normal 80.0-94.0 [facility] [place] [facility] Comment on above: Performed By: #### C BC ####[facility] Rew[address]zawno[address] [place] [address]Dr. Farhat Elvis MONO # 0.7 103/ul Normal 0.3-0.8 [facility] [place] [facility] Comment on above: Performed By: #### C BC ####[facility] Wi[address]em[address] [place], [place] [address]Dr. Madelynlorri Leal Monocytes/100 WBC (Bld) 10.8 % Normal 1.7-12.0 [facility] Comment on above: Performed By: #### C BC ####[facility] [address] [place] [phone]. Farhat Leal NEUT # 3.2 103/ul Normal 1.4-6.5 [facility] [place] [facility] Comment on above: Performed By: #### C BC ####[facility] F[address]zq[address] [place], [place] [address]Dr. Madelynlorri Leal Neutrophils/100 WBC (Bld) 49.7 % Normal 43.0-75.0 [facility] Comment on above: Performed By: #### C BC ####[facility] [address] [place] [id number]. Farhat Leal Platelet mean volume (Bld) [Entitic vol] 10.9 fL Normal 9.5-13.5 [facility] Comment on above: Performed By: #### C BC ####[facility] [address]uv[address] [place] [id number]. Farhat Leal PLT 195 103/ul Normal 150-450 [facility] [place] [facility] Comment on above: Performed By: #### C BC ####[facility] X[address]ly[address] [place] [id number]. Farhat Leal RBC 3.93 106/ul Critically low 4.70-6.10 [facility] Comment on above: Performed By: #### C BC ####[facility] [address] [place] [address]Dr. Farhat Leal WBC 6.4 103/ul Normal 4.0-11.0 [facility] Comment on above: Performed By: #### C BC ####[facility] Azuguirggb[address] [place], [place] [address]Dr. Madelynlorri Leal MAGNESIUMon 07-10-2022 Magnesium [Mass/Vol] 1.9 mg/dL Normal 1.8-2.4 [facility] Comment on above: Performed By: #### Demetrice Manzo PHOS ####[facility] [address] [place] [address]Dr. Farhat Leal PHOSPHORUSon 07-10-2022 Phosphate [Mass/Vol] 4.7 mg/dL Normal 2.6-4.7 [facility] Comment on above: Performed By: #### M Anais PHOS ####[facility] [address] [place] [address]Dr. Farhat Leal PROF 14(COMP METB)on 023 Albumin [Mass/Vol] 2.7 g/dL Critically low 3.4-5.0 [facility] Comment on above: Performed By: #### C MP ####[facility] [address]un[address] [place], [place] [address]Dr. Farhat Leal Albumin/Globulin [Mass ratio] 0.8 {ratio} Normal [facility] Comment on above: Performed By: #### C MP ####[facility] [address] [place] [address]Dr. Farhat Elvis ALP [Catalytic activity/Vol] 59 U/L Normal 46-116 [facility] Comment on above: Performed By: #### C MP ####[facility] W[address]ynmbfch[address] [place] [address]Dr. Farhat Elvis ALT [Catalytic activity/Vol] 16 U/L Normal 16-63 [facility] Comment on above: Performed By: #### C MP ####[facility] [address] [place], [place] [address]Dr. Farhat Leal Anion gap [Moles/Vol] 12.3 mmol/L Normal [facility] Comment on above: Performed By: #### C MP ####[facility] [address]ud[address]iri[address] [place], [place] [address]Dr. Farhat Leal AST [Catalytic activity/Vol] 17 U/L Normal 15-37 [facility] Comment on above: Performed By: #### C MP ####[facility] [address]lsff[address] [place], [place] [address]Dr. Farhat Leal Bilirubin [Mass/Vol] 0.5 mg/dL Normal 0.2-1.0 [facility] Comment on above: Performed By: #### C MP ####[facility] Zoay[address]abqgz[address] [place], [place] [address]Dr. Farhat Leal Calcium [Mass/Vol] 8.5 mg/dL Normal 8.5-10.1 [facility] Comment on above: Performed By: #### C MP ####[facility] Wirxiqnldu[address] [place], [place] [address]Dr. Farhat Leal Chloride [Moles/Vol] 104 mmol/L Normal 98-107 [facility] Comment on above: Performed By: #### C MP ####[facility] [address]ab[address] [place] [address]Dr. Farhat Leal CO2 [Moles/Vol] 27.6 mmol/L Normal 21.0-32.0 [facility] Comment on above: Performed By: #### C MP ####[facility] [address] [place], [place] [address]Fe. Farhat Leal Creatinine [Mass/Vol] 1.79 mg/dL Critically high 0.70-1.30 [facility] Comment on above: Performed By: #### C MP ####[facility] [address]yl[address] [place], [place] [address]Uq. Farhat Leal EGFR-AF RUSSIAN 45 mL/min/1.73m2 Critically low >=60 [facility] Comment on above: Performed By: #### C MP ####[facility] [address] [place] [phone]. Farhat Leal EGFR-NON AF RUSSIAN 37 mL/min/1.73m2 Critically low >=60 [facility] Comment on above: Performed By: #### C MP ####[facility] Yew[address]xsrvq[address] [place] [phone]. Farhat Leal Globulin (S) [Mass/Vol] 3.2 g/dL Normal [facility] Comment on above: Performed By: #### C MP ####[facility] [address] [place] [phone]. Farhat Leal Glucose [Mass/Vol] 203 mg/dL Critically high 74-106 [facility] Comment on above: Performed By: #### C MP ####[facility] Bjzcfdlcvp43[address] [place] [phone]. Farhat Leal Potassium [Moles/Vol] 3.9 mmol/L Normal 3.5-5.1 [facility] Comment on above: Performed By: #### C MP ####[facility] [address] [place], [place] [address]Ib. Farhat Leal Protein [Mass/Vol] 5.9 g/dL Critically low 6.4-8.2 [facility] Comment on above: Performed By: #### C MP ####[facility] [address] [place] [phone]. Farhat Leal Sodium [Moles/Vol] 140 mmol/L Normal 136-145 [facility] Comment on above: Performed By: #### C MP ####[facility] L[address]fmrtalb[address] [place] [address]Dr. Farhat Leal Urea nitrogen [Mass/Vol] 61.0 mg/dL Critically high 7.0-18.0 [facility] Comment on above: Performed By: #### C MP ####[facility] Aj[address]vjxkkc[address] [place] [address]Dr. Farhat Leal Urea nitrogen/Creatinine [Mass ratio] 34.1 mg/mg Normal [facility] Comment on above: Performed By: #### C MP ####[facility] V[address]wtt[address]llu[address] [place], [place] [address]Dr. Farhat Leal PROTIMEon 07-10-2022 INR Coag (PPP) [Relative time] 2.95 {INR} Normal [facility] Comment on above: Performed By: #### P T ####[facility] Yvvatp[address]al[address] [place], [place] [address]Dr. Farhat Leal INR GUIDELINES SEE BELOW Normal [facility] Comment on above: Result Comment: MALINA RED INR: 2.0 - 3.0 CONDITIONS NOT LISTED BELOW 2.5 - 3.5 FOR PROSTHETIC HEART VALVE REPLACEMENT 2.5 - 3.5 RECURRENT THROMBOSIS Performed By: #### P T ####[facility] L[address]ohndewl[address] [place], [place] [address]Dr. Farhat Leal PT Coag (PPP) [Time] 29.4 s Critically high 9.0-11.6 [facility] [place] [facility] Comment on above: Performed By: #### P T ####[facility] Riwkwqqump[address] [place], [place] [address]Dr. Farhat Leal FK506 (TACROLIMUS) WHOLE BLO ODon 07-07-2022 Tacrolimus (FK506), Blood 8.3 ng/mL Normal 2.0-20.0 [facility] Comment on above: Result Comment: Trou gh (immediately following transplant) 15.0 . Trough (steady state, 2 weeks or more after transplant): 3.0 - 8.0 . Performed by LC-MS/MS technology. Performed By: #### F K506T ####[facility] [address] [place] [phone]. Farhat Leal CBC AUTO DIFFon 07-03-2022 BASO # 0.0 103/ul Normal 0.0-0.1 [facility] Comment on above: Performed By: #### C BC ####[facility] [address] [place], [place] [address]Dr. Farhat Leal Basophils/100 WBC (Bld) 0.6 % Normal 0.2-2.0 [facility] Comment on above: Performed By: #### C BC ####[facility] [address] [place], [place] [address]Dr. Farhat Leal EO # 0.3 103/ul Normal 0.0-0.7 [facility] [place] [facility] Comment on above: Performed By: #### C BC ####[facility] [address]vov[address] [place], [place] [address]Dr. Madelynlorri Leal Eosinophils/100 WBC (Bld) 4.1 % Normal 0.9-7.0 [facility] Comment on above: Performed By: #### C BC ####[facility] Pokqq[address]ubf[address] [place], [place] [address]Dr. Farhat Leal Erythrocyte distribution width (RBC) [Ratio] 14.0 % Normal 11.0-15.0 [facility] Comment on above: Performed By: #### C BC ####[facility] S[address]jzbzn[address] [place], [place] [address]Dr. Farhat Leal Hematocrit (Bld) [Volume fraction] 35.9 % Critically low 42.0-54.0 [facility] Comment on above: Performed By: #### C BC ####[facility] [address]xf[address]mt[address] [place], [place] [address]Dr. Madelynlorri Leal Hemoglobin (Bld) [Mass/Vol] 12.0 g/dL Critically low 14.0-18.0 [facility] [place] [facility] Comment on above: Performed By: #### C BC ####[facility] [address]llozquvl[address] [place], [place] [address]Dr. Farhat Leal IG # 0.04 10e3/ul Critically high 0.00-0.03 [facility] Comment on above: Performed By: #### C BC ####[facility] [address]iae[address] [place] [id number]. Farhat Leal IG % 0.6 % Critically high 0.0-0.5 [facility] Comment on above: Performed By: #### C BC ####[facility] [address]zbvlz[address] [place] [phone]. Farhat Elvis LYMPH # 1.5 103/ul Normal 1.2-3.8 [facility] [place] [facility] Comment on above: Performed By: #### C BC ####[facility] [address]xmr[address]xl[address] [place] [address]Dr. Madelynlorri Leal Lymphocytes/100 WBC (Bld) 21.5 % Normal 20.5-60.0 [facility] Comment on above: Performed By: #### C BC ####[facility] [address]qi[address] [place] [address]Dr. Farhat Leal MANUAL DIFF REQ NO Normal [facility] Comment on above: Performed By: #### C BC ####[facility] [address] [place] [phone]. Farhat Leal MCH (RBC) [Entitic mass] 30.8 pg Normal 25.9-34.0 [facility] Comment on above: Performed By: #### C BC ####[facility] [address] [place] [phone]. Farhat Leal MCHC (RBC) [Mass/Vol] 33.4 g/dL Normal 29.9-35.2 [facility] Comment on above: Performed By: #### C BC ####[facility] [address]qxawbgum[address] [place] [phone]. Farhat Leal MCV (RBC) [Entitic vol] 92.1 fL Normal 80.0-94.0 [facility] [place] [facility] Comment on above: Performed By: #### C BC ####[facility] [address] [place], [place] [address]Dr. Farhat Leal MONO # 0.6 103/ul Normal 0.3-0.8 [facility] [place] [facility] Comment on above: Performed By: #### C BC ####[facility] [address]oom[address] [place] [phone]. Farhat Leal Monocytes/100 WBC (Bld) 8.7 % Normal 1.7-12.0 [facility] Comment on above: Performed By: #### C BC ####[facility] [address]hk[address] [place] [phone]. Farhat Leal NEUT # 4.4 103/ul Normal 1.4-6.5 [facility] Comment on above: Performed By: #### C BC ####[facility] [address]sczt[address] [place] [phone]. Farhat Leal Neutrophils/100 WBC (Bld) 64.5 % Normal 43.0-75.0 [facility] Comment on above: Performed By: #### C BC ####[facility] [address]heo[address] [place] [phone]. Farhat Leal Platelet mean volume (Bld) [Entitic vol] 10.1 fL Normal 9.5-13.5 [facility] Comment on above: Performed By: #### C BC ####[facility] [address]vmcpwoi[address] [place] [id number]. Farhat Leal PLT 177 103/ul Normal 150-450 [facility] Comment on above: Performed By: #### C BC ####[facility] [address]qr[address] [place] [phone]. Farhat Leal RBC 3.90 106/ul Critically low 4.70-6.10 [facility] Comment on above: Performed By: #### C BC ####[facility] [address]abs[address]px24[address] [place] [phone]. Farhat Leal WBC 6.8 103/ul Normal 4.0-11.0 [facility] Comment on above: Performed By: #### C BC ####[facility] X[address]vt[address]im[address] [place] [phone]. Farhat Leal PROF 14(COMP METB)on 023 Albumin [Mass/Vol] 2.8 g/dL Critically low 3.4-5.[address] [facility] Comment on above: Performed By: #### C MP ####[facility] [address]xyett[address] [place] [address]Dr. Madelynlorri Elvis Albumin/Globulin [Mass ratio] 0.8 {ratio} Normal [facility] Comment on above: Performed By: #### C MP ####[facility] Xtv[address]avuhb[address] [place] [address]Dr. Farhat Leal ALP [Catalytic activity/Vol] 68 U/L Normal 46-116 [facility] Comment on above: Performed By: #### C MP ####[facility] V[address]ftlmx[address] [place] [address]Dr. Farhat Leal ALT [Catalytic activity/Vol] 20 U/L Normal 16-63 [facility] Comment on above: Performed By: #### C MP ####[facility] [address]kvzmq[address] [place], [place] [address]Dr. Farhat Leal Anion gap [Moles/Vol] 11.1 mmol/L Normal [facility] Comment on above: Performed By: #### C MP ####[facility] [address]axxutwyzj[address] [place], [place] [address]Dr. Farhat Leal AST [Catalytic activity/Vol] 22 U/L Normal 15-37 [facility] Comment on above: Performed By: #### C MP ####[facility] [address]wlvdq[address] [place], [place] [address]Dr. Farhat Leal Bilirubin [Mass/Vol] 0.4 mg/dL Normal 0.2-1.0 [facility] Comment on above: Performed By: #### C MP ####[facility] [address]wftffi[address] [place], [place] [address]Dr. Farhat Leal Calcium [Mass/Vol] 8.5 mg/dL Normal 8.5-10.1 [facility] Comment on above: Performed By: #### C MP ####[facility] [address]vaaledgfc[address] [place], [place] [address]Dr. Farhat Leal Chloride [Moles/Vol] 106 mmol/L Normal 98-107 [facility] Comment on above: Performed By: #### C MP ####[facility] [address]hlsmhm[address] [place] [phone]. Farhat Leal CO2 [Moles/Vol] 29.1 mmol/L Normal 21.0-32.0 [facility] Comment on above: Performed By: #### C MP ####[facility] [address]ft[address]okon4[address] [place] [phone]. Farhat Leal Creatinine [Mass/Vol] 1.70 mg/dL Critically high 0.70-1.30 [facility] Comment on above: Performed By: #### C MP ####[facility] [address]doir[address] [place] [phone]. Farhat Leal EGFR-AF RUSSIAN 48 mL/min/1.73m2 Critically low >=60 [facility] Comment on above: Performed By: #### C MP ####[facility] [address]uxcbdd[address] [place] [phone]. Farhat Leal EGFR-NON AF RUSSIAN 39 mL/min/1.73m2 Critically low >=60 [facility] Comment on above: Performed By: #### C MP ####[facility] [address]bvegru[address] [place] [phone]. Farhat Leal Globulin (S) [Mass/Vol] 3.6 g/dL Normal [facility] Comment on above: Performed By: #### C MP ####[facility] [address]ssypt[address] [place] [phone]. Farhat Leal Glucose [Mass/Vol] 312 mg/dL Critically high 74-106 [facility] Comment on above: Performed By: #### C MP ####[facility] [address]kytyhm[address] [place] [phone]. Farhat Leal Potassium [Moles/Vol] 4.2 mmol/L Normal 3.5-5.1 [facility] [place] [facility] Comment on above: Performed By: #### C MP ####[facility] [address]nvxosi[address] [place] [id number]. Farhat Leal Protein [Mass/Vol] 6.4 g/dL Normal 6.4-8.2 [facility] Comment on above: Performed By: #### C MP ####[facility] Ephdzqjrul[address] [place] [address]Dr. Farhat Leal Sodium [Moles/Vol] 142 mmol/L Normal 136-145 [facility] Comment on above: Performed By: #### C MP ####[facility] Zrroygtsuy[address] [place] [address]Dr. Farhat Leal Urea nitrogen [Mass/Vol] 49.0 mg/dL Critically high 7.0-18.0 [facility] Comment on above: Performed By: #### C MP ####[facility] Cxjomcdizn[address] [place] [address]Dr. Farhat Leal Urea nitrogen/Creatinine [Mass ratio] 28.8 mg/mg Normal [facility] Comment on above: Performed By: #### C MP ####[facility] Suvviocayr[address] [place] [address]Dr. Farhat Leal PROTIMEon 07-03-2022 INR Coag (PPP) [Relative time] 2.23 {INR} Normal [facility] Comment on above: Performed By: #### P T ####[facility] Ypggatprho[address] [place], [place] [address]Dr. Farhat Leal INR GUIDELINES SEE BELOW Normal [facility] Comment on above: Result Comment: MALINA RED INR: 2.0 - 3.0 CONDITIONS NOT LISTED BELOW 2.5 - 3.5 FOR PROSTHETIC HEART VALVE REPLACEMENT 2.5 - 3.5 RECURRENT THROMBOSIS Performed By: #### P T ####[facility] Otefvadcpv[address] [place], [place] [address]Dr. Farhat Leal PT Coag (PPP) [Time] 22.6 s Critically high 9.0-11.6 [facility] Comment on above: Performed By: #### P T ####[facility] Exnenjggji[address] [place], [place] [address]Dr. Farhat Leal FK506 (TACROLIMUS) WHOLE BLO ODon 06-29-2022 Tacrolimus (FK506), Blood 12.2 ng/mL Normal 2.0-20.0 [facility] Comment on above: Result Comment: Trou gh (immediately following transplant) 15.0 . Trough (steady state, 2 weeks or more after transplant): 3.0 - 8.0 . Performed by LC-MS/MS technology. Performed By: #### F K506T ####[facility] Pqeyiqnced[address] [place], [place] [address]Dr. Farhat Leal CBC AUTO DIFFon 06-26-2022 BASO # 0.0 103/ul Normal 0.0-0.1 [facility] Comment on above: Performed By: #### C BC ####[facility] Bwibjbzwfa[address] [place], [place] [address]Dr. Farhat Elvis Basophils/100 WBC (Bld) 0.5 % Normal 0.2-2.0 [facility] Comment on above: Performed By: #### C BC ####[facility] Cbxbjudgii[address] [place], [place] [address]Dr. Farhat Leal EO # 0.3 103/ul Normal 0.0-0.7 [facility] Comment on above: Performed By: #### C BC ####[facility] Lymzfusosv[address] [place], [place] [address]Dr. Farhat Leal Eosinophils/100 WBC (Bld) 4.3 % Normal 0.9-7.0 [facility] Comment on above: Performed By: #### C BC ####[facility] Blnejegnux[address] [place], [place] [address]Dr. Farhat Leal Erythrocyte distribution width (RBC) [Ratio] 14.1 % Normal 11.0-15.0 [facility] Comment on above: Performed By: #### C BC ####[facility] Ekyjhnmema[address] [place], [place] [address]Dr. Farhat Leal Hematocrit (Bld) [Volume fraction] 35.4 % Critically low 42.0-54.0 [facility] Comment on above: Performed By: #### C BC ####[facility] Aitrolnlsa[address] [place], [place] [address]Dr. Farhat Leal Hemoglobin (Bld) [Mass/Vol] 11.8 g/dL Critically low 14.0-18.0 [facility] Comment on above: Performed By: #### C BC ####[facility] Svmexomrvz[address] [place] [phone]. Farhat Leal IG # 0.02 10e3/ul Normal 0.00-0.03 [facility] Comment on above: Performed By: #### C BC ####[facility] Fbewfjndrj4[address] [place] [phone]. Farhat Leal IG % 0.3 % Normal 0.0-0.5 [facility] Comment on above: Performed By: #### C BC ####[facility] Summfsagjg[address] [place] [address]Dr. Farhat Leal LYMPH # 2.4 103/ul Normal 1.2-3.8 [facility] Comment on above: Performed By: #### C BC ####[facility] Rxhnssurts[address] [place] [address]Dr. Madelynlorri Leal Lymphocytes/100 WBC (Bld) 40.4 % Normal 20.5-60.0 [facility] Comment on above: Performed By: #### C BC ####[facility] Wfrmkyqxdl75[address] [place] [address]Dr. Farhat Leal MANUAL DIFF REQ NO Normal [facility] Comment on above: Performed By: #### C BC ####[facility] Cnfklmzbxt[address] [place] [address]Dr. Farhat Leal MCH (RBC) [Entitic mass] 31.0 pg Normal 25.9-34.0 [facility] Comment on above: Performed By: #### C BC ####[facility] Ghapcagezs[address] [place] [address]Dr. Farhat Leal MCHC (RBC) [Mass/Vol] 33.3 g/dL Normal 29.9-35.2 [facility] Comment on above: Performed By: #### C BC ####[facility] Anetfwvtci[address] [place] [address]Dr. Farhat Leal MCV (RBC) [Entitic vol] 92.9 fL Normal 80.0-94.0 [facility] Comment on above: Performed By: #### C BC ####[facility] Qexfivhyyc[address] [place] [phone]. Farhat Elvis MONO # 0.7 103/ul Normal 0.3-0.8 [facility] Comment on above: Performed By: #### C BC ####[facility] Gvpipqexep74[address] [place] [phone]. Farhat Elvis Monocytes/100 WBC (Bld) 11.1 % Normal 1.7-12.0 [facility] Comment on above: Performed By: #### C BC ####[facility] Apfpuuwqia27[address] [place] [phone]. Farhat Leal NEUT # 2.6 103/ul Normal 1.4-6.5 [facility] Comment on above: Performed By: #### C BC ####[facility] Cectbbjeaq9[address] [place] [address]Dr. Farhat Leal Neutrophils/100 WBC (Bld) 43.4 % Normal 43.0-75.0 [facility] Comment on above: Performed By: #### C BC ####[facility] Arpxinlnjd5[address] [place] [phone]. Farhat Elvis Platelet mean volume (Bld) [Entitic vol] 10.4 fL Normal 9.5-13.5 [facility] Comment on above: Performed By: #### C BC ####[facility] Knxwnjpygc[address] [place] [phone]. Farhat Elvis PLT 211 103/ul Normal 150-450 [facility] Comment on above: Performed By: #### C BC ####[facility] Qswvwasqzc85[address] [place] [phone]. Farhat Elvis RBC 3.81 106/ul Critically low 4.70-6.10 [facility] Comment on above: Performed By: #### C BC ####[facility] Fdmbavqzrt9[address] [place] [phone]. Madelynlorri Elvis WBC 6.0 103/ul Normal 4.0-11.0 [facility] Comment on above: Performed By: #### C BC ####[facility] Xjrefilmhv[address] [place], [place] [address]Dr. Farhat Leal PROF 14(COMP METB)on 023 Albumin [Mass/Vol] 2.6 g/dL Critically low 3.4-5.[address] [facility] Comment on above: Performed By: #### C MP ####[facility] Uqzbmagqfl[address] [place] [address]Dr. Farhat Leal Albumin/Globulin [Mass ratio] 0.8 {ratio} Normal [facility] Comment on above: Performed By: #### C MP ####[facility] Ypvfuwntyk27[address] [place] [address]Dr. Farhat Leal ALP [Catalytic activity/Vol] 64 U/L Normal 46-116 [facility] Comment on above: Performed By: #### C MP ####[facility] Tdfodpusgw74[address] [place], [place] [address]Dr. Farhat Leal ALT [Catalytic activity/Vol] 18 U/L Normal 16-63 [facility] Comment on above: Performed By: #### C MP ####[facility] Esrwwhoqab468[address] [place], [place] [address]Dr. Farhat Leal Anion gap [Moles/Vol] 10.2 mmol/L Normal [facility] Comment on above: Performed By: #### C MP ####[facility] Rlqtmrqqpl[address] [place], [place] [address]Dr. Farhat Leal AST [Catalytic activity/Vol] 16 U/L Normal 15-37 [facility] Comment on above: Performed By: #### C MP ####[facility] Cwipftatam[address] [place], [place] [address]Dr. Farhat Leal Bilirubin [Mass/Vol] 0.6 mg/dL Normal 0.2-1.0 [facility] Comment on above: Performed By: #### C MP ####[facility] Afauvgvwwz412[address] [place], [place] [address]Dr. Farhat Leal Calcium [Mass/Vol] 8.5 mg/dL Normal 8.5-10.1 [facility] Comment on above: Performed By: #### C MP ####[facility] Vcqhvpplop[address] [place], [place] [address]Dr. Farhat Leal Chloride [Moles/Vol] 106 mmol/L Normal 98-107 [facility] Comment on above: Performed By: #### C MP ####[facility] Wwchxkntqa[address] [place] [address]Dr. Farhat Leal CO2 [Moles/Vol] 29.8 mmol/L Normal 21.0-32.0 [facility] Comment on above: Performed By: #### C MP ####[facility] Vueoqfbuyp[address] [place], [place] [address]Dr. Farhat Elvis Creatinine [Mass/Vol] 1.60 mg/dL Critically high 0.70-1.30 [facility] Comment on above: Performed By: #### C MP ####[facility] Hhgcibisrm[address] [place], [place] [address]Dr. Madelynlorri Elvis EGFR-AF RUSSIAN 51 mL/min/1.73m2 Critically low >=60 [facility] Comment on above: Performed By: #### C MP ####[facility] Kfjnudyroh[address] [place], [place] [address]Dr. Farhat Elvis EGFR-NON AF RUSSIAN 42 mL/min/1.73m2 Critically low >=60 [facility] Comment on above: Performed By: #### C MP ####[facility] Jlqojjeyzm64[address] [place], [place] [address]Dr. Farhat Leal Globulin (S) [Mass/Vol] 3.4 g/dL Normal [facility] Comment on above: Performed By: #### C MP ####[facility] Wljgdeyttl956[address] [place], [place] [address]Dr. Farhat Leal Glucose [Mass/Vol] 178 mg/dL Critically high 74-106 [facility] Comment on above: Performed By: #### C MP ####[facility] Wpvtodtmfn175[address] [place], [place] [address]Dr. Farhat Leal Potassium [Moles/Vol] 4.0 mmol/L Normal 3.5-5.1 [facility] Comment on above: Performed By: #### C MP ####[facility] Aumdwyiupa[address] [place], [place] [address]Dr. Farhat Leal Protein [Mass/Vol] 6.0 g/dL Critically low 6.4-8.2 [facility] Comment on above: Performed By: #### C MP ####[facility] Zsgwdtmgll[address] [place], [place] [address]Dr. Farhat Leal Sodium [Moles/Vol] 142 mmol/L Normal 136-145 [facility] Comment on above: Performed By: #### C MP ####[facility] Ojdsxnakgl124[address] [place], [place] [address]Dr. Farhat Leal Urea nitrogen [Mass/Vol] 49.0 mg/dL Critically high 7.0-18.0 [facility] Comment on above: Performed By: #### C MP ####[facility] Gymngaubhy8[address] [place], [place] [address]Dr. Farhat Leal Urea nitrogen/Creatinine [Mass ratio] 30.6 mg/mg Normal [facility] Comment on above: Performed By: #### C MP ####[facility] Odaikonglh[address] [place], [place] [address]Dr. Farhat Leal PROTIMEon 06-26-2022 INR Coag (PPP) [Relative time] 1.77 {INR} Normal [facility] Comment on above: Performed By: #### P T ####[facility] Bhdhvrdrlz[address] [place], [place] [address]Dr. Farhat Leal INR GUIDELINES SEE BELOW Normal [facility] Comment on above: Result Comment: MALINA RED INR: 2.0 - 3.0 CONDITIONS NOT LISTED BELOW 2.5 - 3.5 FOR PROSTHETIC HEART VALVE REPLACEMENT 2.5 - 3.5 RECURRENT THROMBOSIS Performed By: #### P T ####[facility] Ljuqwulqlr14[address] [place], [place] [address]Dr. Farhat Leal PT Coag (PPP) [Time] 18.2 s Critically high 9.0-11.6 [facility] Comment on above: Performed By: #### P T ####[facility] [address]qafqhrld[address] [place], [place] [address]Dr. Farhat Leal FK506 (TACROLIMUS) WHOLE BLO ODon 06-22-2022 Tacrolimus (FK506), Blood 24.5 ng/mL Invalid Interpretation Code 2.0-20.0 [facility] Comment on above: Result Comment: Trou gh (immediately following transplant) 15.0 . Trough (steady state, 2 weeks or more after transplant): 3.0 - 8.0 . Performed by LC-MS/MS technology.Patient drug level exceeds published reference range. Evaluateclinically for signs of potential toxicity. Performed By: #### F K506T ####[facility] Sgkdggmtby[address] [place], [place] [address]Dr. Farhat Leal CBC AUTO DIFFon 06-19-2022 BASO # 0.1 103/ul Normal 0.0-0.1 [facility] Comment on above: Performed By: #### C BC ####[facility] Gxufszrrnb[address] [place], [place] [address]Dr. Farhat Leal Basophils/100 WBC (Bld) 0.7 % Normal 0.2-2.0 [facility] Comment on above: Performed By: #### C BC ####[facility] Ynaghiatqy[address] [place], [place] [address]Dr. Farhat Leal EO # 0.4 103/ul Normal 0.0-0.7 [facility] Comment on above: Performed By: #### C BC ####[facility] Qpwjyqfsht90[address] [place], [place] [address]Dr. Farhat Leal Eosinophils/100 WBC (Bld) 5.7 % Normal 0.9-7.0 [facility] Comment on above: Performed By: #### C BC ####[facility] Vkhvbrhbar[address] [place], [place] [address]Dr. Farhat Leal Erythrocyte distribution width (RBC) [Ratio] 14.5 % Normal 11.0-15.0 [facility] Comment on above: Performed By: #### C BC ####[facility] [address]ttnuqhmtq[address] [place], [place] [address]Dr. Farhat Leal Hematocrit (Bld) [Volume fraction] 34.1 % Critically low 42.0-54.0 [facility] Comment on above: Performed By: #### C BC ####[facility] [address]tqyzufkmt[address] [place] [phone]. Farhat Leal Hemoglobin (Bld) [Mass/Vol] 11.3 g/dL Critically low 14.0-18.0 [facility] Comment on above: Performed By: #### C BC ####[facility] Jefickyulu[address] [place] [phone]. Farhat Leal IG # 0.02 10e3/ul Normal 0.00-0.03 [facility] Comment on above: Performed By: #### C BC ####[facility] Fqgysmkjyi26[address] [place] [phone]. Farhat Leal IG % 0.3 % Normal 0.0-0.5 [facility] Comment on above: Performed By: #### C BC ####[facility] Gfzawlpryx[address] [place] [address]Dr. Farhat Leal LYMPH # 3.1 103/ul Normal 1.2-3.8 [facility] Comment on above: Performed By: #### C BC ####[facility] Xdtbtzhjfx2039 [place] [address]Dr. Farhat Leal Lymphocytes/100 WBC (Bld) 40.6 % Normal 20.5-60.0 [facility] Comment on above: Performed By: #### C BC ####[facility] [address]fsaujlyd[address] [place] [phone]. Farhat Leal MANUAL DIFF REQ NO Normal [facility] Comment on above: Performed By: #### C BC ####[facility] Nobbdojrvs[address] [place] [phone]. Farhat Leal MCH (RBC) [Entitic mass] 30.6 pg Normal 25.9-34.0 [facility] Comment on above: Performed By: #### C BC ####[facility] Xgsndkzkoh4[address] [place] [phone]. Farhat Leal MCHC (RBC) [Mass/Vol] 33.1 g/dL Normal 29.9-35.2 [facility] Comment on above: Performed By: #### C BC ####[facility] Wlstmgdprs7[address] [place] [phone]. Farhat Leal MCV (RBC) [Entitic vol] 92.4 fL Normal 80.0-94.0 [facility] Comment on above: Performed By: #### C BC ####[facility] Kmmefadafz4[address] [place] [address]Dr. Farhat Leal MONO # 0.8 103/ul Normal 0.3-0.8 [facility] Comment on above: Performed By: #### C BC ####[facility] Gakwhfotzw65[address] [place] [address]Dr. Farhat Leal Monocytes/100 WBC (Bld) 10.6 % Normal 1.7-12.0 [facility] Comment on above: Performed By: #### C BC ####[facility] Dmgxlwkmga[address] [place], [place] [address]Dr. Farhat Leal NEUT # 3.2 103/ul Normal 1.4-6.5 [facility] Comment on above: Performed By: #### C BC ####[facility] Bqrbpnmhdp[address] [place], [place] [address]Dr. Farhat Leal Neutrophils/100 WBC (Bld) 42.1 % Critically low 43.0-75.0 [facility] Comment on above: Performed By: #### C BC ####[facility] Jmsaqvpoou[address] [place], [place] [address]Dr. Farhat Leal Platelet mean volume (Bld) [Entitic vol] 10.6 fL Normal 9.5-13.5 [facility] Comment on above: Performed By: #### C BC ####[facility] [address]ffzunpglg[address] [place], [place] [address]Dr. Farhat Leal PLT 187 103/ul Normal 150-450 [facility] Comment on above: Performed By: #### C BC ####[facility] Hobfeckdet[address] [place], [place] [address]Dr. Farhat Leal RBC 3.69 106/ul Critically low 4.70-6.10 [facility] Comment on above: Performed By: #### C BC ####[facility] Otflvgomrv[address] [place], [place] [address]Dr. Farhat Leal WBC 7.7 103/ul Normal 4.0-11.0 [facility] Comment on above: Performed By: #### C BC ####[facility] Goansyrgbf[address] [place] [address]Dr. Farhat Leal PROF 14(COMP METB)on 023 Albumin [Mass/Vol] 2.5 g/dL Critically low 3.4-5.0 Th [facility] Comment on above: Performed By: #### C MP ####[facility] Legaxrjmga[address] [place] [address]Dr. Farhat Leal Albumin/Globulin [Mass ratio] 0.8 {ratio} Normal [facility] Comment on above: Performed By: #### C MP ####[facility] Hqjunnnuob06[address] [place] [address]Dr. Farhat Leal ALP [Catalytic activity/Vol] 60 U/L Normal 46-116 [facility] Comment on above: Performed By: #### C MP ####[facility] Rzxppvmfft58[address] [place] [address]Dr. Farhat Leal ALT [Catalytic activity/Vol] 16 U/L Normal 16-63 [facility] Comment on above: Performed By: #### C MP ####[facility] Mdvddmqcni74[address] [place] [address]Dr. Farhat Leal Anion gap [Moles/Vol] 9.1 mmol/L Normal [facility] Comment on above: Performed By: #### C MP ####[facility] Gxxjxmxftb9971 [place] [address]Dr. Farhat Leal AST [Catalytic activity/Vol] 31 U/L Normal 15-37 [facility] Comment on above: Performed By: #### C MP ####[facility] Uvwhnzaamx4[address] [place] [address]Dr. Farhat Leal Bilirubin [Mass/Vol] 0.3 mg/dL Normal 0.2-1.0 [facility] Comment on above: Performed By: #### C MP ####[facility] Cepxutevkg5[address] [place] [address]Dr. Farhat Leal Calcium [Mass/Vol] 8.2 mg/dL Critically low 8.5-10.1 [facility] Comment on above: Performed By: #### C MP ####[facility] Iqksbzcpey9361 [place] [address]Dr. Farhat Leal Chloride [Moles/Vol] 106 mmol/L Normal 98-107 [facility] Comment on above: Performed By: #### C MP ####[facility] Iikwfkiwno[address] [place], [place] [address]Dr. Farhat Leal CO2 [Moles/Vol] 27.0 mmol/L Normal 21.0-32.0 [facility] Comment on above: Performed By: #### C MP ####[facility] Izqyvksxvo398[address] [place], [place] [address]Dr. Farhat Leal Creatinine [Mass/Vol] 1.51 mg/dL Critically high 0.70-1.30 [facility] Comment on above: Performed By: #### C MP ####[facility] Schkshicxj04[address] [place], [place] [address]Dr. Farhat Leal EGFR-AF RUSSIAN 55 mL/min/1.73m2 Critically low >=60 [facility] Comment on above: Performed By: #### C MP ####[facility] Yodflufjpr[address] [place], [place] [address]Dr. Farhat Leal EGFR-NON AF RUSSIAN 45 mL/min/1.73m2 Critically low >=60 [facility] Comment on above: Performed By: #### C MP ####[facility] Zkdopashvz[address] [place], [place] [address]Dr. Farhat Leal Globulin (S) [Mass/Vol] 3.2 g/dL Normal [facility] Comment on above: Performed By: #### C MP ####[facility] Klnzsvgcja15[address] [place], [place] [address]Dr. Farhat Leal Glucose [Mass/Vol] 165 mg/dL Critically high 74-106 [facility] Comment on above: Performed By: #### C MP ####[facility] Jrlvmbrlhg[address] [place], [place] [address]Dr. Farhat Leal Potassium [Moles/Vol] 4.1 mmol/L Normal 3.5-5.1 [facility] Comment on above: Performed By: #### C MP ####[facility] Jrulghersy590[address] [place], [place] [address]Dr. Farhat Leal Protein [Mass/Vol] 5.7 g/dL Critically low 6.4-8.2 Th [facility] Comment on above: Performed By: #### C MP ####[facility] Lsmglvqzze7[address] [place], [place] [address]Dr. Farhat Leal Sodium [Moles/Vol] 138 mmol/L Normal 136-145 [facility] Comment on above: Performed By: #### C MP ####[facility] Cpjspjbjgv[address] [place], [place] [address]Dr. Farhat Leal Urea nitrogen [Mass/Vol] 51.0 mg/dL Critically high 7.0-18.0 [facility] Comment on above: Performed By: #### C MP ####[facility] Slalvcosme[address] [place], [place] [address]Dr. Farhat Leal Urea nitrogen/Creatinine [Mass ratio] 33.8 mg/mg Normal [facility] Comment on above: Performed By: #### C MP ####[facility] Xdfyphsiny365[address] [place], [place] [address]Dr. Farhat Leal FK506 (TACROLIMUS) WHOLE BLO ODon 06-15-2022 Tacrolimus (FK506), Blood 16.4 ng/mL Normal 2.0-20.0 [facility] Comment on above: Result Comment: Trou gh (immediately following transplant) 15.0 . Trough (steady state, 2 weeks or more after transplant): 3.0 - 8.0 . Performed by LC-MS/MS technology. Performed By: #### F K506T ####[facility] Lmseqvgwxt[address] [place], [place] [address]Dr. Farhat Leal PROTIMEon 06-15-2022 INR Coag (PPP) [Relative time] 1.64 {INR} Normal [facility] Comment on above: Performed By: #### P T ####[facility] Iywgdbbmod[address] [place], [place] [address]DrSkylar Leal INR GUIDELINES SEE BELOW Normal [facility] Comment on above: Result Comment: MALINA RED INR: 2.0 - 3.0 CONDITIONS NOT LISTED BELOW 2.5 - 3.5 FOR PROSTHETIC HEART VALVE REPLACEMENT 2.5 - 3.5 RECURRENT THROMBOSIS Performed By: #### P T ####[facility] Ombadhbwud[address] [place], [place] [address]DrSkylar Leal PT Coag (PPP) [Time] 16.9 s Critically high 9.0-11.6 [facility] Comment on above: Performed By: #### P T ####[facility] Ihqcdyfdyl[address] [place], [place] [address]DrSkylar Leal CBC AUTO DIFFon 06-12-2022 BASO # 0.0 103/ul Normal 0.0-0.1 [facility] Comment on above: Performed By: #### C BC ####[facility] Vdfnqlubxw[address] [place], [place] [address]DrSkylar Leal Basophils/100 WBC (Bld) 0.4 % Normal 0.2-2.0 [facility] Comment on above: Performed By: #### C BC ####[facility] Rpemdtfpyu[address] [place], [place] [address]DrSkylar Leal EO # 0.4 103/ul Normal 0.0-0.7 [facility] Comment on above: Performed By: #### C BC ####[facility] Aaydvbywte[address] [place], [place] [address]DrSkylar Leal Eosinophils/100 WBC (Bld) 5.4 % Normal 0.9-7.0 [facility] Comment on above: Performed By: #### C BC ####[facility] X[address]vudqchjt[address] [place], [place] [address]DrSkylar Leal Erythrocyte distribution width (RBC) [Ratio] 14.7 % Normal 11.0-15.0 [facility] Comment on above: Performed By: #### C BC ####[facility] Qpnxngqsqq134[address] [place], [place] [address]DrSkylar Leal Hematocrit (Bld) [Volume fraction] 34.8 % Critically low 42.0-54.0 [facility] Comment on above: Performed By: #### C BC ####[facility] [address]fsdiscmye[address] [place] [address]Dr. Farhat Leal Hemoglobin (Bld) [Mass/Vol] 11.7 g/dL Critically low 14.0-18.0 [facility] Comment on above: Performed By: #### C BC ####[facility] Diqdmtmuxk9[address] [place] [address]Dr. Farhat Leal IG # 0.02 10e3/ul Normal 0.00-0.03 [facility] Comment on above: Performed By: #### C BC ####[facility] Shxhgenesa[address] [place], [place] [address]Dr. Farhat Elvis IG % 0.3 % Normal 0.0-0.5 [facility] Comment on above: Performed By: #### C BC ####[facility] Italuzetkz[address] [place], [place] [address]DrSkylar Farhat Elvis LYMPH # 2.5 103/ul Normal 1.2-3.8 [facility] Comment on above: Performed By: #### C BC ####[facility] Vmqayvatyb[address] [place], [place] [address]DrSkylar Farhat Leal Lymphocytes/100 WBC (Bld) 36.8 % Normal 20.5-60.0 [facility] Comment on above: Performed By: #### C BC ####[facility] Jqoilkertp[address] [place], [place] [address]DrSkylar Farhat Elvis MANUAL DIFF REQ NO Normal [facility] Comment on above: Performed By: #### C BC ####[facility] Omufuxabrl097[address] [place], [place] [address]DrSkylar Farhat Elvis MCH (RBC) [Entitic mass] 30.9 pg Normal 25.9-34.0 [facility] Comment on above: Performed By: #### C BC ####[facility] Dsighkwomu[address] [place], [place] [address]DrSkylar Farhat Elvis MCHC (RBC) [Mass/Vol] 33.6 g/dL Normal 29.9-35.2 [facility] Comment on above: Performed By: #### C BC ####[facility] [address]qfdvxj[address] [place] [address]DrSkylar Leal MCV (RBC) [Entitic vol] 91.8 fL Normal 80.0-94.0 [facility] Comment on above: Performed By: #### C BC ####[facility] Hkyqnuuzup[address] [place], [place] [address]DrSkylar Leal MONO # 0.8 103/ul Normal 0.3-0.8 [facility] Comment on above: Performed By: #### C BC ####[facility] Qwxkcjgxwd[address] [place], [place] [address]DrSkylar Leal Monocytes/100 WBC (Bld) 11.9 % Normal 1.7-12.0 [facility] Comment on above: Performed By: #### C BC ####[facility] Nhyixqigyi[address] [place], [place] [address]DrSkylar Leal NEUT # 3.1 103/ul Normal 1.4-6.5 [facility] Comment on above: Performed By: #### C BC ####[facility] Sifgibfkyb[address] [place], [place] [address]DrSkylar Leal Neutrophils/100 WBC (Bld) 45.2 % Normal 43.0-75.0 [facility] Comment on above: Performed By: #### C BC ####[facility] Ttpmwaqftq[address] [place], [place] [address]DrSkylar Leal Platelet mean volume (Bld) [Entitic vol] 10.5 fL Normal 9.5-13.5 [facility] Comment on above: Performed By: #### C BC ####[facility] Dnpnpjqwaq[address] [place], [place] [address]DrSkylar Leal PLT 175 103/ul Normal 150-450 [facility] Comment on above: Performed By: #### C BC ####[facility] Sgibprfqdm613[address] [place], [place] [address]DrSkylar Leal RBC 3.79 106/ul Critically low 4.70-6.10 [facility] Comment on above: Performed By: #### C BC ####[facility] Ep[address]xckztx[address] [place] [address]Dr. Farhat Leal WBC 6.8 103/ul Normal 4.0-11.0 [facility] Comment on above: Performed By: #### C BC ####[facility] Srhreunapp[address] [place] [address]Dr. Farhat Leal MAGNESIUMon 06-12-2022 Magnesium [Mass/Vol] 1.6 mg/dL Critically low 1.8-2.4 [facility] Comment on above: Performed By: #### C MP, MG, PHOS ####[facility] Qddhodfvux7[address] [place] [address]Dr. Farhat Leal PHOSPHORUSon 06-12-2022 Phosphate [Mass/Vol] 3.8 mg/dL Normal 2.6-4.7 [facility] Comment on above: Performed By: #### C MP, MG, PHOS ####[facility] Fovqbciuce86[address] [place], [place] [address]Dr. Farhat Leal PROF 14(COMP METB)on 023 Albumin [Mass/Vol] 2.6 g/dL Critically low 3.4-5.[address] [facility] Comment on above: Performed By: #### C MP, MG, PHOS ####[facility] Knsqefpjkv9[address] [place] [address]Dr. Farhat Leal Albumin/Globulin [Mass ratio] 0.8 {ratio} Normal [facility] Comment on above: Performed By: #### C MP, MG, PHOS ####[facility] Xwkrnbpuzn65[address] [place] [address]Dr. Farhat Leal ALP [Catalytic activity/Vol] 64 U/L Normal 46-116 [facility] Comment on above: Performed By: #### C MP, MG, PHOS ####[facility] Nafnyvqfpt49[address] [place] [address]Dr. Farhat Leal ALT [Catalytic activity/Vol] 18 U/L Normal 16-63 [facility] Comment on above: Performed By: #### C MP, MG, PHOS ####[facility] Klerhkeoju[address] [place] [address]Dr. Farhat Leal Anion gap [Moles/Vol] 12.9 mmol/L Normal [facility] Comment on above: Performed By: #### C MP, MG, PHOS ####[facility] Rjrjrlqttj9532 [place] [address]Dr. Farhat Leal AST [Catalytic activity/Vol] 18 U/L Normal 15-37 [facility] Comment on above: Performed By: #### C MP, MG, PHOS ####[facility] Ansmalojrn[address] [place], [place] [address]Dr. Farhat Leal Bilirubin [Mass/Vol] 0.4 mg/dL Normal 0.2-1.0 [facility] Comment on above: Performed By: #### C MP, MG, PHOS ####[facility] Mpkqcxpebt9[address] [place], [place] [address]Dr. Farhat Leal Calcium [Mass/Vol] 8.7 mg/dL Normal 8.5-10.1 [facility] Comment on above: Performed By: #### C MP, MG, PHOS ####[facility] Vgmhdvrdow[address] [place], [place] [address]Dr. Farhat Leal Chloride [Moles/Vol] 105 mmol/L Normal 98-107 [facility] Comment on above: Performed By: #### C MP, MG, PHOS ####[facility] Ayifexwllm[address] [place], [place] [address]Dr. Farhat Leal CO2 [Moles/Vol] 27.9 mmol/L Normal 21.0-32.0 [facility] Comment on above: Performed By: #### C MP, MG, PHOS ####[facility] Dgrxayhpsq128[address] [place], [place] [address]Dr. Farhat Leal Creatinine [Mass/Vol] 1.53 mg/dL Critically high 0.70-1.30 [facility] Comment on above: Performed By: #### C MP, MG, PHOS ####[facility] Abrqnpvzfx[address] [place] [address]Dr. Farhat Leal EGFR-AF RUSSIAN 54 mL/min/1.73m2 Critically low >=60 [facility] Comment on above: Performed By: #### C MP, MG, PHOS ####[facility] Mqcettfrti[address] [place] [address]Dr. Farhat Leal EGFR-NON AF RUSSIAN 44 mL/min/1.73m2 Critically low >=60 [facility] Comment on above: Performed By: #### C MP, MG, PHOS ####[facility] Ubtfrdkfcf80[address] [place] [address]Dr. Farhat Leal Globulin (S) [Mass/Vol] 3.4 g/dL Normal [facility] Comment on above: Performed By: #### C MP, MG, PHOS ####[facility] Fzmnnhizkh79[address] [place] [address]Dr. Farhat Leal Glucose [Mass/Vol] 179 mg/dL Critically high 74-106 [facility] Comment on above: Performed By: #### C MP, MG, PHOS ####[facility] Bjfhjxayqb0476 [place] [address]Dr. Farhat Leal Potassium [Moles/Vol] 3.8 mmol/L Normal 3.5-5.1 [facility] Comment on above: Performed By: #### C MP, MG, PHOS ####[facility] Eyrulkawhm[address] [place] [address]Dr. Farhat Leal Protein [Mass/Vol] 6.0 g/dL Critically low 6.4-8.[address] [facility] Comment on above: Performed By: #### C MP, MG, PHOS ####[facility] Rlvptnfoyt1150 [place] [address]Dr. Farhat Leal Sodium [Moles/Vol] 142 mmol/L Normal 136-145 [facility] Comment on above: Performed By: #### C MP, MG, PHOS ####[facility] Eyqktnukim3899 [place] [address]Dr. Farhat Leal Urea nitrogen [Mass/Vol] 56.0 mg/dL Critically high 7.0-18.0 [facility] Comment on above: Performed By: #### C MP, MG, PHOS ####[facility] Bzgpegjhcd600[address] [place], [place] [address]Dr. Farhat Leal Urea nitrogen/Creatinine [Mass ratio] 36.6 mg/mg Normal [facility] Comment on above: Performed By: #### C MP, MG, PHOS ####[facility] Eznowlghmw812[address] [place], [place] [address]Dr. Farhat Leal FK506 (TACROLIMUS) WHOLE BLO ODon 06-08-2022 Tacrolimus (FK506), Blood 13.2 ng/mL Normal 2.0-20.0 [facility] Comment on above: Result Comment: Trou gh (immediately following transplant) 15.0 . Trough (steady state, 2 weeks or more after transplant): 3.0 - 8.0 . Performed by LC-MS/MS technology. Performed By: #### F [id number] ####[facility] Lfuycwxtco[address] [place], [place] [address]Dr. Farhat Leal CBC AUTO DIFFon 06-05-2022 BASO # 0.1 103/ul Normal 0.0-0.1 [facility] Comment on above: Performed By: #### C BC ####[facility] Gliwqnofvs126[address] [place], [place] [address]Dr. Farhat Leal Basophils/100 WBC (Bld) 0.8 % Normal 0.2-2.0 [facility] Comment on above: Performed By: #### C BC ####[facility] Xfuirnwhdb[address] [place], [place] [address]Dr. Farhat Leal EO # 0.3 103/ul Normal 0.0-0.7 [facility] Comment on above: Performed By: #### C BC ####[facility] Popgcufaif269[address] [place], [place] [address]Dr. Farhat Leal Eosinophils/100 WBC (Bld) 4.7 % Normal 0.9-7.0 [facility] Comment on above: Performed By: #### C BC ####[facility] Sechbtujam647[address] [place], [place] [address]Dr. Farhat Leal Erythrocyte distribution width (RBC) [Ratio] 15.1 % Critically high 11.0-15.0 [facility] Comment on above: Performed By: #### C BC ####[facility] Xvlpsvmjfo4817 [place] [address]Dr. Farhat Leal Hematocrit (Bld) [Volume fraction] 35.5 % Critically low 42.0-54.0 [facility] Comment on above: Performed By: #### C BC ####[facility] Nmcdcalkgw1082 [place] [address]Dr. Farhat Leal Hemoglobin (Bld) [Mass/Vol] 11.7 g/dL Critically low 14.0-18.0 [facility] Comment on above: Performed By: #### C BC ####[facility] Gazxamkmqc33[address] [place], [place] [address]Dr. Farhat Leal IG # 0.01 10e3/ul Normal 0.00-0.03 [facility] Comment on above: Performed By: #### C BC ####[facility] Elobyvvamb[address] [place], [place] [address]Dr. Farhat Elvis IG % 0.2 % Normal 0.0-0.5 [facility] Comment on above: Performed By: #### C BC ####[facility] Vmplgfepsx078[address] [place], [place] [address]Dr. Farhat Elvis LYMPH # 2.1 103/ul Normal 1.2-3.8 [facility] Comment on above: Performed By: #### C BC ####[facility] Ijvpdjdsbr154[address] [place], [place] [address]Dr. Madelynlorri Leal Lymphocytes/100 WBC (Bld) 34.5 % Normal 20.5-60.0 [facility] Comment on above: Performed By: #### C BC ####[facility] Wzeefhcbhi07[address] [place], [place] [address]Dr. Madelynlorri Leal MANUAL DIFF REQ NO Normal [facility] Comment on above: Performed By: #### C BC ####[facility] Zorwsamhtk9[address] [place], [place] [address]Dr. Farhat Leal MCH (RBC) [Entitic mass] 30.6 pg Normal 25.9-34.0 [facility] Comment on above: Performed By: #### C BC ####[facility] Zqebeprixb4783 [place] [address]Dr. Farhat Leal MCHC (RBC) [Mass/Vol] 33.0 g/dL Normal 29.9-35.2 [facility] Comment on above: Performed By: #### C BC ####[facility] Hayztgebhe869[address] [place], [place] [address]Dr. Farhat Elvis MCV (RBC) [Entitic vol] 92.9 fL Normal 80.0-94.0 [facility] Comment on above: Performed By: #### C BC ####[facility] Sriaotfmzn[address] [place], [place] [address]Dr. Farhat Leal MONO # 0.7 103/ul Normal 0.3-0.8 [facility] Comment on above: Performed By: #### C BC ####[facility] Ylyitecjdl64[address] [place], [place] [address]Dr. Madelynlorri Leal Monocytes/100 WBC (Bld) 11.4 % Normal 1.7-12.0 [facility] Comment on above: Performed By: #### C BC ####[facility] Vebpzafpbi[address] [place], [place] [address]Dr. Farhat Leal NEUT # 2.9 103/ul Normal 1.4-6.5 [facility] Comment on above: Performed By: #### C BC ####[facility] Puleonepcg[address] [place], [place] [address]Dr. Madelynlorri Leal Neutrophils/100 WBC (Bld) 48.4 % Normal 43.0-75.0 [facility] Comment on above: Performed By: #### C BC ####[facility] Vwtbfziukq[address] [place], [place] [address]Dr. Farhat Elvis Platelet mean volume (Bld) [Entitic vol] 10.7 fL Normal 9.5-13.5 [facility] Comment on above: Performed By: #### C BC ####[facility] Zlwmsxhxgh1863 [place] [id number]. Farhat Leal PLT 185 103/ul Normal 150-450 [facility] Comment on above: Performed By: #### C BC ####[facility] Vihaeuvonz[address] [place], [place] [address]Dr. Farhat Leal RBC 3.82 106/ul Critically low 4.70-6.10 [facility] Comment on above: Performed By: #### C BC ####[facility] Pgefjaatyh66[address] [place], [place] [address]Dr. Farhat Leal WBC 6.0 103/ul Normal 4.0-11.0 [facility] Comment on above: Performed By: #### C BC ####[facility] Pjnepjrxor97[address] [place], [place] [address]Dr. Farhat Leal MAGNESIUMon 06-05-2022 Magnesium [Mass/Vol] 1.9 mg/dL Normal 1.8-2.4 [facility] Comment on above: Performed By: #### P HOS, MG ####[facility] Wpgjmosxcm59360[address] [place], [place] [address]Dr. Farhat Leal PHOSPHORUSon 06-05-2022 Phosphate [Mass/Vol] 4.4 mg/dL Normal 2.6-4.7 [facility] Comment on above: Performed By: #### P HOS, MG ####[facility] Jfweokxtzh6[address] [place], [place] [address]Dr. Farhat Leal PROTIMEon 06-05-2022 INR Coag (PPP) [Relative time] 2.16 {INR} Normal [facility] Comment on above: Performed By: #### P T ####[facility] Nrobfmxvpg76[address] [place], [place] [address]Dr. Farhat Leal INR GUIDELINES SEE BELOW Normal [facility] Comment on above: Result Comment: MALINA RED INR: 2.0 - 3.0 CONDITIONS NOT LISTED BELOW 2.5 - 3.5 FOR PROSTHETIC HEART VALVE REPLACEMENT 2.5 - 3.5 RECURRENT THROMBOSIS Performed By: #### P T ####[facility] Tqtjzyonmo7[address] [place], [place] [address]Dr. Farhat Leal PT Coag (PPP) [Time] 21.9 s Critically high 9.0-11.6 [facility] Comment on above: Performed By: #### P T ####[facility] Hngxkrkekw06[address] [place], [place] [address]Dr. Farhat Leal FK506 (TACROLIMUS) WHOLE BLO ODon 06-01-2022 Tacrolimus (FK506), Blood 26.4 ng/mL Invalid Interpretation Code 2.0-20.0 [facility] Comment on above: Result Comment: Trou gh (immediately following transplant) 15.0 . Trough (steady state, 2 weeks or more after transplant): 3.0 - 8.0 . Performed by LC-MS/MS technology.Patient drug level exceeds published reference range. Evaluateclinically for signs of potential toxicity. Performed By: #### F K506T ####[facility] Gpjuzxlnpg[address] [place], [place] [address]Dr. Farhat Elvis CBC AUTO DIFFon 05-29-2022 BASO # 0.0 103/ul Normal 0.0-0.1 [facility] Comment on above: Performed By: #### C BC ####[facility] Ptffxkkesu896[address] [place], [place] [address]Dr. Madelynlorri Leal Basophils/100 WBC (Bld) 0.6 % Normal 0.2-2.0 [facility] Comment on above: Performed By: #### C BC ####[facility] Kqdwzvhnkl366[address] [place], [place] [address]Dr. Farhat Leal EO # 0.3 103/ul Normal 0.0-0.7 [facility] Comment on above: Performed By: #### C BC ####[facility] Rniuxcdayw174[address] [place], [place] [address]Dr. Farhat Leal Eosinophils/100 WBC (Bld) 4.7 % Normal 0.9-7.0 [facility] Comment on above: Performed By: #### C BC ####[facility] Paciwflcgd27[address] [place], [place] [address]Dr. Farhat Leal Erythrocyte distribution width (RBC) [Ratio] 15.3 % Critically high 11.0-15.0 [facility] Comment on above: Performed By: #### C BC ####[facility] [address]alvrjevx[address] [place] [address]Dr. Farhat Leal Hematocrit (Bld) [Volume fraction] 36.6 % Critically low 42.0-54.0 [facility] Comment on above: Performed By: #### C BC ####[facility] Jrpijqiyaq9186 [place] [address]Dr. Madelynlorri Leal Hemoglobin (Bld) [Mass/Vol] 12.3 g/dL Critically low 14.0-18.0 [facility] Comment on above: Performed By: #### C BC ####[facility] Vrxqrkwllg110[address] [place], [place] [address]Dr. Madelynlorri Leal IG # 0.02 10e3/ul Normal 0.00-0.03 [facility] Comment on above: Performed By: #### C BC ####[facility] Clffwfsuks5813[address] [place], [place] [address]Dr. Farhat Leal IG % 0.3 % Normal 0.0-0.5 [facility] Comment on above: Performed By: #### C BC ####[facility] Civkybsyqb89[address] [place], [place] [address]Dr. Madelynlorri Leal LYMPH # 2.8 103/ul Normal 1.2-3.8 [facility] Comment on above: Performed By: #### C BC ####[facility] Fcdjqawoyq449[address] [place], [place] [address]Dr. Farhat Leal Lymphocytes/100 WBC (Bld) 44.4 % Normal 20.5-60.0 [facility] Comment on above: Performed By: #### C BC ####[facility] Jpieoucdov670[address] [place], [place] [address]Dr. Farhat Leal MANUAL DIFF REQ NO Normal [facility] Comment on above: Performed By: #### C BC ####[facility] Buycvrbrrb[address] [place], [place] [address]Dr. Farhat Leal MCH (RBC) [Entitic mass] 30.4 pg Normal 25.9-34.0 [facility] Comment on above: Performed By: #### C BC ####[facility] [address]rmhlkpwut[address] [place] [id number]. Farhat Elvis MCHC (RBC) [Mass/Vol] 33.6 g/dL Normal 29.9-35.2 [facility] Comment on above: Performed By: #### C BC ####[facility] Djuvqqbdcg5227 [place] [id number]. Farhat Leal MCV (RBC) [Entitic vol] 90.4 fL Normal 80.0-94.0 [facility] Comment on above: Performed By: #### C BC ####[facility] Aioodhjssa517[address] [place], [place] [address]Dr. Farhat Leal MONO # 0.7 103/ul Normal 0.3-0.8 [facility] Comment on above: Performed By: #### C BC ####[facility] Bfbyujonqk69[address] [place], [place] [address]Dr. Farhat Leal Monocytes/100 WBC (Bld) 10.7 % Normal 1.7-12.0 [facility] Comment on above: Performed By: #### C BC ####[facility] Vyqlaxmlty210[address] [place], [place] [address]Dr. Farhat Leal NEUT # 2.5 103/ul Normal 1.4-6.5 [facility] Comment on above: Performed By: #### C BC ####[facility] Ctzsstuzie8[address] [place], [place] [address]Dr. Farhat Leal Neutrophils/100 WBC (Bld) 39.3 % Critically low 43.0-75.0 [facility] Comment on above: Performed By: #### C BC ####[facility] Tpkbetxisx[address] [place], [place] [address]Dr. Farhat Leal Platelet mean volume (Bld) [Entitic vol] 10.5 fL Normal 9.5-13.5 [facility] Comment on above: Performed By: #### C BC ####[facility] Ajonatojga[address] [place], [place] [address]Dr. Farhat Leal PLT 190 103/ul Normal 150-450 [facility] Comment on above: Performed By: #### C BC ####[facility] Ylkkotezfp4460 [place] [id number]. Farhat Leal RBC 4.05 106/ul Critically low 4.70-6.10 [facility] Comment on above: Performed By: #### C BC ####[facility] Rkxpvmltfy0510 [place] [id number]. Farhat Leal WBC 6.4 103/ul Normal 4.0-11.0 [facility] Comment on above: Performed By: #### C BC ####[facility] Gzutwvmuab[address] [place] [address]Dr. Farhat Leal PROF 14(COMP METB)on 023 Albumin [Mass/Vol] 2.5 g/dL Critically low 3.4-5.[address] [facility] Comment on above: Performed By: #### C MP ####[facility] Xeulwpexak2496 [place] [address]Dr. Farhat Leal Albumin/Globulin [Mass ratio] 0.8 {ratio} Normal [facility] Comment on above: Performed By: #### C MP ####[facility] Vnifzkortk[address] [place] [address]Dr. Farhat Leal ALP [Catalytic activity/Vol] 61 U/L Normal 46-116 [facility] Comment on above: Performed By: #### C MP ####[facility] Urtgwwyrkr[address] [place] [address]Dr. Farhat Leal ALT [Catalytic activity/Vol] 16 U/L Normal 16-63 [facility] Comment on above: Performed By: #### C MP ####[facility] Yseefqlpwh5[address] [place] [address]Dr. Farhat Leal Anion gap [Moles/Vol] 12.3 mmol/L Normal [facility] Comment on above: Performed By: #### C MP ####[facility] Mjjudhkqyo8680 [place] [address]Dr. Farhat Leal AST [Catalytic activity/Vol] 18 U/L Normal 15-37 [facility] Comment on above: Performed By: #### C MP ####[facility] Xlhlzkdyba6051 [place] [id number]. Farhat Leal Bilirubin [Mass/Vol] 0.5 mg/dL Normal 0.2-1.0 [facility] Comment on above: Performed By: #### C MP ####[facility] Pxygzbkacc3483 [place] [id number]. Farhat Leal Calcium [Mass/Vol] 8.6 mg/dL Normal 8.5-10.1 [facility] Comment on above: Performed By: #### C MP ####[facility] [address]uz[address]zzjukh[address] [place] [phone]. Farhat Leal Chloride [Moles/Vol] 105 mmol/L Normal 98-107 [facility] Comment on above: Performed By: #### C MP ####[facility] Voshyyzfwx7305 [place] [id number]. Farhat Leal CO2 [Moles/Vol] 28.6 mmol/L Normal 21.0-32.0 [facility] Comment on above: Performed By: #### C MP ####[facility] Vfugeltbfk6721 [place] [id number]. Farhat Leal Creatinine [Mass/Vol] 1.47 mg/dL Critically high 0.70-1.30 [facility] Comment on above: Performed By: #### C MP ####[facility] Kxbbzqfzuj4646 [place] [id number]. Farhat Leal EGFR-AF RUSSIAN 56 mL/min/1.73m2 Critically low >=60 [facility] Comment on above: Performed By: #### C MP ####[facility] Wkknusntsn2454 [place] [id number]. Farhat Leal EGFR-NON AF RUSSIAN 46 mL/min/1.73m2 Critically low >=60 [facility] Comment on above: Performed By: #### C MP ####[facility] [address] [place], [place] [address]Dr. Farhat Leal Globulin (S) [Mass/Vol] 3.3 g/dL Normal [facility] Comment on above: Performed By: #### C MP ####[facility] [address]lnsxflkkm1461 [place], [place] [address]Cl. Farhat Leal Glucose [Mass/Vol] 164 mg/dL Critically high 74-106 [facility] Comment on above: Performed By: #### C MP ####[facility] Y[address]swzpczmf0138 [place], [place] [address]Ae. Farhat Leal Potassium [Moles/Vol] 3.9 mmol/L Normal 3.5-5.1 [facility] Comment on above: Performed By: #### C MP ####[facility] Dqpnbnrwnt0645 [place] [id number]. Farhat Leal Protein [Mass/Vol] 5.8 g/dL Critically low 6.4-8.2 Th [facility] Comment on above: Performed By: #### C MP ####[facility] Tydwievhxh20[address] [place] [id number]. Farhat Leal Sodium [Moles/Vol] 142 mmol/L Normal 136-145 [facility] Comment on above: Performed By: #### C MP ####[facility] Eqajiupjly5331 [place] [id number]. Farhat Leal Urea nitrogen [Mass/Vol] 53.0 mg/dL Critically high 7.0-18.0 [facility] Comment on above: Performed By: #### C MP ####[facility] Bcyzdelmig3547 [place] [phone]. Madelynlorri Leal Urea nitrogen/Creatinine [Mass ratio] 36.1 mg/mg Normal [facility] Comment on above: Performed By: #### C MP ####[facility] Ioosoyllqn3373 [place] [phone]. Farhat Elvis PROTIMEon 05-29-2022 INR Coag (PPP) [Relative time] 2.41 {INR} Normal [facility] Comment on above: Performed By: #### P T ####[facility] Ethxjndixq0165 [place] [phone]. Madelynlorri Elvis INR GUIDELINES SEE BELOW Normal [facility] Comment on above: Result Comment: MALINA RED INR: 2.0 - 3.0 CONDITIONS NOT LISTED BELOW 2.5 - 3.5 FOR PROSTHETIC HEART VALVE REPLACEMENT 2.5 - 3.5 RECURRENT THROMBOSIS Performed By: #### P T ####[facility] Xtuhwlaqyz[address] [place], [place] [address]DrSkylar Leal PT Coag (PPP) [Time] 24.3 s Critically high 9.0-11.6 [facility] Comment on above: Performed By: #### P T ####[facility] [address]rc[address]okhjs[address] [place], [place] [address]DrSkylar Leal FK506 (TACROLIMUS) WHOLE BLO ODon 05-25-2022 Tacrolimus (FK506), Blood 5.1 ng/mL Normal 2.0-20.0 [facility] Comment on above: Result Comment: Trou gh (immediately following transplant) 15.0 . Trough (steady state, 2 weeks or more after transplant): 3.0 - 8.0 . Performed by LC-MS/MS technology. Performed By: #### F [id number] ####[facility] [address] [place], [place] [address]DrSkylar Leal CBC AUTO DIFFon 05-22-2022 BASO # 0.0 103/ul Normal 0.0-0.1 [facility] Comment on above: Performed By: #### C BC ####[facility] Stxbmuvyez[address] [place], [place] [address]Dr. Farhat Leal Basophils/100 WBC (Bld) 0.5 % Normal 0.2-2.0 [facility] Comment on above: Performed By: #### C BC ####[facility] Yrdubwxmax[address] [place], [place] [address]DrSkylar Leal EO # 0.2 103/ul Normal 0.0-0.7 [facility] Comment on above: Performed By: #### C BC ####[facility] Lpcvwrqdae[address] [place], [place] [address]DrSkylar Leal Eosinophils/100 WBC (Bld) 4.0 % Normal 0.9-7.0 [facility] Comment on above: Performed By: #### C BC ####[facility] Uucijihoci[address] [place], [place] [address]Dr. Farhat Leal Erythrocyte distribution width (RBC) [Ratio] 15.5 % Critically high 11.0-15.0 [facility] Comment on above: Performed By: #### C BC ####[facility] [address]xsxzms[address] [place] [address]Dr. Farhat Leal Hematocrit (Bld) [Volume fraction] 34.1 % Critically low 42.0-54.0 [facility] Comment on above: Performed By: #### C BC ####[facility] [address]outhnrjg[address] [place] [address]Dr. Madelynlorri Leal Hemoglobin (Bld) [Mass/Vol] 11.3 g/dL Critically low 14.0-18.0 [facility] Comment on above: Performed By: #### C BC ####[facility] Waysxmkdlm42[address] [place] [address]Dr. Farhat Leal IG # 0.03 10e3/ul Normal 0.00-0.03 [facility] Comment on above: Performed By: #### C BC ####[facility] Babxybzwvs[address] [place] [address]Dr. Farhat Leal IG % 0.5 % Normal 0.0-0.5 [facility] Comment on above: Performed By: #### C BC ####[facility] Rbb[address]aiwbkz6[address] [place] [address]Dr. Farhat Leal LYMPH # 2.1 103/ul Normal 1.2-3.8 [facility] Comment on above: Performed By: #### C BC ####[facility] Uovhvrlkja[address] [place] [address]Dr. Farhat Leal Lymphocytes/100 WBC (Bld) 34.6 % Normal 20.5-60.0 [facility] Comment on above: Performed By: #### C BC ####[facility] Abqwgatrmx[address] [place] [address]Dr. Farhat Leal MANUAL DIFF REQ NO Normal [facility] Comment on above: Performed By: #### C BC ####[facility] Uuoveqbvin[address] [place] [address]Dr. Farhat Leal MCH (RBC) [Entitic mass] 30.3 pg Normal 25.9-34.0 [facility] Comment on above: Performed By: #### C BC ####[facility] Yrcwsaekgn54[address] [place] [address]Dr. Farhat Leal MCHC (RBC) [Mass/Vol] 33.1 g/dL Normal 29.9-35.2 [facility] Comment on above: Performed By: #### C BC ####[facility] Hgvubydlfg36[address] [place] [address]Dr. Farhat Leal MCV (RBC) [Entitic vol] 91.4 fL Normal 80.0-94.0 [facility] Comment on above: Performed By: #### C BC ####[facility] Nqarmqjwqw[address] [place], [place] [address]Dr. Farhat Elvis MONO # 0.7 103/ul Normal 0.3-0.8 [facility] Comment on above: Performed By: #### C BC ####[facility] Hqtnpzekfr[address] [place], [place] [address]Dr. Farhat Elvis Monocytes/100 WBC (Bld) 11.6 % Normal 1.7-12.0 [facility] Comment on above: Performed By: #### C BC ####[facility] Dkewhfawjj043[address] [place], [place] [address]Dr. Farhat Leal NEUT # 2.9 103/ul Normal 1.4-6.5 [facility] Comment on above: Performed By: #### C BC ####[facility] Cssriazcve[address] [place], [place] [address]Dr. Madelynlorri Leal Neutrophils/100 WBC (Bld) 48.8 % Normal 43.0-75.0 [facility] Comment on above: Performed By: #### C BC ####[facility] Ueijmrmqqg[address] [place], [place] [address]Dr. Farhat Elvis Platelet mean volume (Bld) [Entitic vol] 10.9 fL Normal 9.5-13.5 [facility] Comment on above: Performed By: #### C BC ####[facility] Bvpnxwhleh70[address] [place] [phone]. Farhat Elvis PLT 186 103/ul Normal 150-450 [facility] Comment on above: Performed By: #### C BC ####[facility] Juizgwomwc[address] [place] [phone]. Farhat Leal RBC 3.73 106/ul Critically low 4.70-6.10 [facility] Comment on above: Performed By: #### C BC ####[facility] Eyowzcnejj8444 [place] [phone]. Farhat Elvis WBC 6.0 103/ul Normal 4.0-11.0 [facility] Comment on above: Performed By: #### C BC ####[facility] Ndtlbtbhnc[address] [place] [address]Dr. Farhat Leal PROF 14(COMP METB)on 023 Albumin [Mass/Vol] 2.7 g/dL Critically low 3.4-5.[address] [facility] Comment on above: Performed By: #### C MP ####[facility] Ecqwtqksmx7[address] [place] [address]Dr. Madelynlorri Leal Albumin/Globulin [Mass ratio] 0.8 {ratio} Normal [facility] Comment on above: Performed By: #### C MP ####[facility] Shkzftvail025[address] [place] [address]Dr. Farhat Leal ALP [Catalytic activity/Vol] 60 U/L Normal 46-116 [facility] Comment on above: Performed By: #### C MP ####[facility] Aglesdnkwh[address] [place] [address]Dr. Farhat Leal ALT [Catalytic activity/Vol] 17 U/L Normal 16-63 [facility] Comment on above: Performed By: #### C MP ####[facility] Agmtbzdipc9978 [place] [address]Dr. Farhat Leal Anion gap [Moles/Vol] 9.6 mmol/L Normal [facility] Comment on above: Performed By: #### C MP ####[facility] Hejnahebkk[address] [place], [place] [address]Dr. Madelynlorri Elvis AST [Catalytic activity/Vol] 14 U/L Critically low 15-37 [facility] Comment on above: Performed By: #### C MP ####[facility] Plyxzwyaqa6783 [place] [address]Dr. Farhat Leal Bilirubin [Mass/Vol] 0.5 mg/dL Normal 0.2-1.0 [facility] Comment on above: Performed By: #### C MP ####[facility] Kyyolnalaf9[address] [place], [place] [address]Dr. Farhat Leal Calcium [Mass/Vol] 8.4 mg/dL Critically low 8.5-10.1 [facility] Comment on above: Performed By: #### C MP ####[facility] Pdsgcvorwl348[address] [place], [place] [address]Dr. Farhat Leal Chloride [Moles/Vol] 104 mmol/L Normal 98-107 [facility] Comment on above: Performed By: #### C MP ####[facility] Rvdswabmzs484[address] [place], [place] [address]Dr. Farhat Leal CO2 [Moles/Vol] 27.2 mmol/L Normal 21.0-32.0 [facility] Comment on above: Performed By: #### C MP ####[facility] Vwzcreakpe507[address] [place], [place] [address]Dr. Farhat Leal Creatinine [Mass/Vol] 1.24 mg/dL Normal 0.70-1.30 [facility] Comment on above: Performed By: #### C MP ####[facility] Wogeraxeff376[address] [place], [place] [address]Dr. Farhat Leal EGFR-AF RUSSIAN >60 Normal >=60 [facility] Comment on above: Performed By: #### C MP ####[facility] Wqvepqefdj708[address] [place], [place] [address]Dr. Farhat Leal EGFR-NON AF RUSSIAN 57 mL/min/1.73m2 Critically low >=60 [facility] Comment on above: Performed By: #### C MP ####[facility] Omgnmqvlbe493[address] [place], [place] [address]Dr. Farhat Leal Globulin (S) [Mass/Vol] 3.3 g/dL Normal [facility] Comment on above: Performed By: #### C MP ####[facility] Zbjajurnqm101[address] [place], [place] [address]Dr. Farhat Leal Glucose [Mass/Vol] 275 mg/dL Critically high 74-106 T [facility] Comment on above: Performed By: #### C MP ####[facility] Kqrbdrwzol69[address] [place], [place] [address]Dr. Farhat Elvis Potassium [Moles/Vol] 3.8 mmol/L Normal 3.5-5.1 [facility] Comment on above: Performed By: #### C MP ####[facility] Fgdxoafuwy6[address] [place], [place] [address]Dr. Farhat Elvis Protein [Mass/Vol] 6.0 g/dL Critically low 6.4-8.2 Th [facility] Comment on above: Performed By: #### C MP ####[facility] Rechzstfdd414[address] [place], [place] [address]Dr. Farhat Elvis Sodium [Moles/Vol] 137 mmol/L Normal 136-145 [facility] Comment on above: Performed By: #### C MP ####[facility] Hudxkahgsp[address] [place], [place] [address]Dr. Farhat Elvis Urea nitrogen [Mass/Vol] 54.0 mg/dL Critically high 7.0-18.0 [facility] Comment on above: Performed By: #### C MP ####[facility] Ljlwiwdylu167[address] [place], [place] [address]Dr. Farhat Elvis Urea nitrogen/Creatinine [Mass ratio] 43.5 mg/mg Normal [facility] Comment on above: Performed By: #### C MP ####[facility] Lbdvoeytus645[address] [place], [place] [address]Dr. Farhat Elvis PROTIMEon 05-22-2022 INR Coag (PPP) [Relative time] 2.27 {INR} Normal [facility] Comment on above: Performed By: #### P T ####[facility] Tyusedvmfy[address] [place], [place] [address]DrSkylar Leal INR GUIDELINES SEE BELOW Normal [facility] Comment on above: Result Comment: MALINA RED INR: 2.0 - 3.0 CONDITIONS NOT LISTED BELOW 2.5 - 3.5 FOR PROSTHETIC HEART VALVE REPLACEMENT 2.5 - 3.5 RECURRENT THROMBOSIS Performed By: #### P T ####[facility] Fjhudkxmgz9144 [place] [address]DrSkylar Leal PT Coag (PPP) [Time] 23.0 s Critically high 9.0-11.6 [facility] Comment on above: Performed By: #### P T ####[facility] Pqizpqepmf309[address] [place], [place] [address]DrSkylar Leal FK506 (TACROLIMUS) WHOLE BLO ODon 05-19-2022 Tacrolimus (FK506), Blood 7.8 ng/mL Normal 2.0-20.0 [facility] Comment on above: Result Comment: Trou gh (immediately following transplant) 15.0 . Trough (steady state, 2 weeks or more after transplant): 3.0 - 8.0 . Performed by LC-MS/MS technology. Performed By: #### F [id number] ####[facility] Bnsyhlkqpj[address] [place], [place] [address]Dr. Farhat Leal CBC AUTO DIFFon 05-15-2022 BASO # 0.0 103/ul Normal 0.0-0.1 [facility] Comment on above: Performed By: #### C BC ####[facility] Kobbgvjakf[address] [place], [place] [address]DrSkylar Leal Basophils/100 WBC (Bld) 0.4 % Normal 0.2-2.0 [facility] Comment on above: Performed By: #### C BC ####[facility] Faowsdlxug396[address] [place], [place] [address]DrSkylra Leal EO # 0.2 103/ul Normal 0.0-0.7 [facility] Comment on above: Performed By: #### C BC ####[facility] Kepfrjyvcm[address] [place], [place] [address]DrSkylar Leal Eosinophils/100 WBC (Bld) 3.0 % Normal 0.9-7.0 [facility] Comment on above: Performed By: #### C BC ####[facility] Mjynpasrkc39[address] [place] [address]Dr. Farhat Leal Erythrocyte distribution width (RBC) [Ratio] 15.7 % Critically high 11.0-15.0 [facility] Comment on above: Performed By: #### C BC ####[facility] Qgvchrxnfj50[address] [place], [place] [address]Dr. Farhat Leal Hematocrit (Bld) [Volume fraction] 36.8 % Critically low 42.0-54.0 [facility] Comment on above: Performed By: #### C BC ####[facility] Casfvuglzw[address] [place], [place] [address]Dr. Farhat Leal Hemoglobin (Bld) [Mass/Vol] 12.4 g/dL Critically low 14.0-18.0 [facility] Comment on above: Performed By: #### C BC ####[facility] Cujhvwmssj413[address] [place], [place] [address]Dr. Farhat Leal IG # 0.01 10e3/ul Normal 0.00-0.03 [facility] Comment on above: Performed By: #### C BC ####[facility] Sfytrjtmxu[address] [place], [place] [address]Dr. Farhat Leal IG % 0.1 % Normal 0.0-0.5 [facility] Comment on above: Performed By: #### C BC ####[facility] Mlminxnvfk498[address] [place], [place] [address]Dr. Farhat Leal LYMPH # 2.4 103/ul Normal 1.2-3.8 [facility] Comment on above: Performed By: #### C BC ####[facility] Bjroxzhasj174[address] [place], [place] [address]Dr. Farhat Elvis Lymphocytes/100 WBC (Bld) 35.6 % Normal 20.5-60.0 [facility] Comment on above: Performed By: #### C BC ####[facility] Xtmgwgflty886[address] [place], [place] [address]Dr. Farhat Elvis MANUAL DIFF REQ NO Normal [facility] Comment on above: Performed By: #### C BC ####[facility] [address]psynumz[address] [place] [phone]. Farhat Elvis MCH (RBC) [Entitic mass] 30.1 pg Normal 25.9-34.0 [facility] Comment on above: Performed By: #### C BC ####[facility] Xgiltonxhy7330 [place] [address]Dr. Farhat Leal MCHC (RBC) [Mass/Vol] 33.7 g/dL Normal 29.9-35.2 [facility] Comment on above: Performed By: #### C BC ####[facility] Kodkdsgdgg9618[address] [place], [place] [address]Dr. Farhat Leal MCV (RBC) [Entitic vol] 89.3 fL Normal 80.0-94.0 [facility] Comment on above: Performed By: #### C BC ####[facility] Jteyfapwkh89360[address] [place], [place] [address]Dr. Farhat Leal MONO # 0.7 103/ul Normal 0.3-0.8 [facility] Comment on above: Performed By: #### C BC ####[facility] Vbammgwkze906[address] [place], [place] [address]Dr. Farhat Leal Monocytes/100 WBC (Bld) 10.8 % Normal 1.7-12.0 [facility] Comment on above: Performed By: #### C BC ####[facility] Bsacxloiqf[address] [place], [place] [address]DrSkylar Leal NEUT # 3.4 103/ul Normal 1.4-6.5 [facility] Comment on above: Performed By: #### C BC ####[facility] Cezrebimww[address] [place], [place] [address]DrSkylar Leal Neutrophils/100 WBC (Bld) 50.1 % Normal 43.0-75.0 [facility] Comment on above: Performed By: #### C BC ####[facility] Srklftjdor[address] [place], [place] [address]DrSkylar Leal Platelet mean volume (Bld) [Entitic vol] 10.2 fL Normal 9.5-13.5 [facility] Comment on above: Performed By: #### C BC ####[facility] Oiewfhfred[address] [place] [address]Dr. Farhat Leal PLT 190 103/ul Normal 150-450 [facility] Comment on above: Performed By: #### C BC ####[facility] Fwdxjjclkk3556 [place] [id number]. Farhat Leal RBC 4.12 106/ul Critically low 4.70-6.10 [facility] Comment on above: Performed By: #### C BC ####[facility] Ukmmhoiwes3136 [place] [address]Dr. Farhat Leal WBC 6.8 103/ul Normal 4.0-11.0 [facility] Comment on above: Performed By: #### C BC ####[facility] Mbvyutvcht30[address] [place] [address]DrSkylar Leal PROF 14(COMP METB)on 023 Albumin [Mass/Vol] 2.8 g/dL Critically low 3.4-5.[address] [facility] Comment on above: Performed By: #### C MP ####[facility] Lkiucxldld7454 [place] [address]DrSkylar Leal Albumin/Globulin [Mass ratio] 0.9 {ratio} Normal [facility] Comment on above: Performed By: #### C MP ####[facility] Cfiestxgmj4934 [place] [address]Dr. Farhat Leal ALP [Catalytic activity/Vol] 66 U/L Normal 46-116 [facility] Comment on above: Performed By: #### C MP ####[facility] Lvkwdbghik0334 [place] [address]DrSkylar Leal ALT [Catalytic activity/Vol] 15 U/L Critically low 16-63 [facility] Comment on above: Performed By: #### C MP ####[facility] Bjyrhpxqlr4919 [place] [id number] Leal Anion gap [Moles/Vol] 11.1 mmol/L Normal [facility] Comment on above: Performed By: #### C MP ####[facility] Wijumlxezz4725 [place] [address]Dr. Farhat Leal AST [Catalytic activity/Vol] 14 U/L Critically low 15-37 [facility] Comment on above: Performed By: #### C MP ####[facility] Jgpynftxim0449 [place] [phone]. Farhat Leal Bilirubin [Mass/Vol] 0.8 mg/dL Normal 0.2-1.0 [facility] Comment on above: Performed By: #### C MP ####[facility] Xxpxavdwtn[address] [place], [place] [address]Dr. Farhat Leal Calcium [Mass/Vol] 8.9 mg/dL Normal 8.5-10.1 [facility] Comment on above: Performed By: #### C MP ####[facility] Brbiorpzkk[address] [place], [place] [address]Dr. Farhat Leal Chloride [Moles/Vol] 101 mmol/L Normal 98-107 [facility] Comment on above: Performed By: #### C MP ####[facility] Ysetmajegm[address] [place], [place] [address]Dr. Farhat Leal CO2 [Moles/Vol] 28.2 mmol/L Normal 21.0-32.0 [facility] Comment on above: Performed By: #### C MP ####[facility] Gmdfhmhupc[address] [place], [place] [address]Dr. Farhat Elvis Creatinine [Mass/Vol] 1.23 mg/dL Normal 0.70-1.30 [facility] Comment on above: Performed By: #### C MP ####[facility] Lmensfaqiw24[address] [place] [address]Dr. Farhat Leal EGFR-AF RUSSIAN >60 Normal >=60 [facility] Comment on above: Performed By: #### C MP ####[facility] Vhyhrkxuwg8067 [place] [address]Dr. Farhat Leal EGFR-NON AF RUSSIAN 57 mL/min/1.73m2 Critically low >=60 [facility] Comment on above: Performed By: #### C MP ####[facility] Prcbhcwenk6787 [place] [address]Dr. Farhat Leal Globulin (S) [Mass/Vol] 3.2 g/dL Normal [facility] Comment on above: Performed By: #### C MP ####[facility] Pkaevkvppi9[address] [place] [address]Dr. Farhat Leal Glucose [Mass/Vol] 333 mg/dL Critically high 74-106 [facility] Comment on above: Performed By: #### C MP ####[facility] Zptaffogzg5460 [place] [address]Dr. Farhat Leal Potassium [Moles/Vol] 4.3 mmol/L Normal 3.5-5.1 [facility] Comment on above: Performed By: #### C MP ####[facility] Xlglvsphhg8662 [place] [address]Dr. Farhat Leal Protein [Mass/Vol] 6.0 g/dL Critically low 6.4-8.2 Th [facility] Comment on above: Performed By: #### C MP ####[facility] Rhuiabalgr[address] [place], [place] [address]Dr. Farhat Leal Sodium [Moles/Vol] 136 mmol/L Normal 136-145 [facility] Comment on above: Performed By: #### C MP ####[facility] Dskhbbrnrm1464 [place] [address]Dr. Farhat Leal Urea nitrogen [Mass/Vol] 58.0 mg/dL Critically high 7.0-18.0 [facility] Comment on above: Performed By: #### C MP ####[facility] Izkpjklvpx9200 [place] [address]Dr. Farhat Leal Urea nitrogen/Creatinine [Mass ratio] 47.2 mg/mg Normal [facility] Comment on above: Performed By: #### C MP ####[facility] Xslnqqewgu95[address] [place] [address]Dr. Farhat Elvis PROTIMEon 05-13-2022 INR Coag (PPP) [Relative time] 3.51 {INR} Normal [facility] Comment on above: Performed By: #### P T ####[facility] Easovdliqb[address] [place] [address]Dr. Farhat Leal INR GUIDELINES SEE BELOW Normal [facility] Comment on above: Result Comment: MALINA RED INR: 2.0 - 3.0 CONDITIONS NOT LISTED BELOW 2.5 - 3.5 FOR PROSTHETIC HEART VALVE REPLACEMENT 2.5 - 3.5 RECURRENT THROMBOSIS Performed By: #### P T ####[facility] Hzzqwtbxch[address] [place], [place] [address]Dr. Farhat Leal PT Coag (PPP) [Time] 34.7 s Critically high 9.0-11.6 [facility] Comment on above: Performed By: #### P T ####[facility] Ofljzwkyxy9[address] [place], [place] [address]Dr. Farhat Leal FK506 (TACROLIMUS) WHOLE BLO ODon 05-11-2022 Tacrolimus (FK506), Blood 14.4 ng/mL Normal 2.0-20.0 [facility] Comment on above: Result Comment: Trou gh (immediately following transplant) 15.0 . Trough (steady state, 2 weeks or more after transplant): 3.0 - 8.0 . Performed by LC-MS/MS technology. Performed By: #### F [id number] ####[facility] Eymtbgrcpl[address] [place], [place] [address]Dr. Farhat Leal CBC AUTO DIFFon 05-08-2022 BASO # 0.0 103/ul Normal 0.0-0.1 [facility] Comment on above: Performed By: #### C BC ####[facility] Gmcgrswzig158[address] [place], [place] [address]Dr. Farhat Leal Basophils/100 WBC (Bld) 0.5 % Normal 0.2-2.0 [facility] Comment on above: Performed By: #### C BC ####[facility] Njyastacny40[address] [place] [address]Dr. Farhat Leal EO # 0.2 103/ul Normal 0.0-0.7 [facility] Comment on above: Performed By: #### C BC ####[facility] Wsnakvkrrw8857 [place] [phone]. Farhat Leal Eosinophils/100 WBC (Bld) 2.9 % Normal 0.9-7.0 [facility] Comment on above: Performed By: #### C BC ####[facility] Slewbkzjyp2471 [place] [address]Dr. Farhat Leal Erythrocyte distribution width (RBC) [Ratio] 16.0 % Critically high 11.0-15.0 [facility] Comment on above: Performed By: #### C BC ####[facility] Qiiwsovmww[address] [place], [place] [address]Dr. Farhat Lela Hematocrit (Bld) [Volume fraction] 35.7 % Critically low 42.0-54.0 [facility] Comment on above: Performed By: #### C BC ####[facility] Anxejowjpa418[address] [place], [place] [address]Dr. Farhat Leal Hemoglobin (Bld) [Mass/Vol] 11.9 g/dL Critically low 14.0-18.0 [facility] Comment on above: Performed By: #### C BC ####[facility] Nswuxdiyjx306[address] [place], [place] [address]Dr. Farhat Leal IG # 0.03 10e3/ul Normal 0.00-0.03 [facility] Comment on above: Performed By: #### C BC ####[facility] Gxjjcpeuve[address] [place], [place] [address]Dr. Farhat Leal IG % 0.5 % Normal 0.0-0.5 [facility] Comment on above: Performed By: #### C BC ####[facility] Ntbzrehxim113[address] [place], [place] [address]Dr. Farhat Leal LYMPH # 2.4 103/ul Normal 1.2-3.8 [facility] Comment on above: Performed By: #### C BC ####[facility] Iyhxdxfhco[address] [place], [place] [address]Dr. Farhat Leal Lymphocytes/100 WBC (Bld) 37.8 % Normal 20.5-60.0 [facility] Comment on above: Performed By: #### C BC ####[facility] Imvlpxctcf6825 [place] [phone]. Farhat Leal MANUAL DIFF REQ NO Normal [facility] Comment on above: Performed By: #### C BC ####[facility] Idfnzeinvu9331 [place] [phone]. Farhat Leal MCH (RBC) [Entitic mass] 30.4 pg Normal 25.9-34.0 [facility] Comment on above: Performed By: #### C BC ####[facility] Lrbatuxsaw[address] [place], [place] [address]Dr. Farhat Leal MCHC (RBC) [Mass/Vol] 33.3 g/dL Normal 29.9-35.2 [facility] Comment on above: Performed By: #### C BC ####[facility] Dgclnysvht[address] [place], [place] [address]Dr. Farhat Leal MCV (RBC) [Entitic vol] 91.1 fL Normal 80.0-94.0 [facility] Comment on above: Performed By: #### C BC ####[facility] Uueaxxweem[address] [place], [place] [address]Dr. Farhat Leal MONO # 0.7 103/ul Normal 0.3-0.8 [facility] Comment on above: Performed By: #### C BC ####[facility] Fwaoejojmd[address] [place], [place] [address]Dr. Farhat Leal Monocytes/100 WBC (Bld) 11.1 % Normal 1.7-12.0 [facility] Comment on above: Performed By: #### C BC ####[facility] [address]ys[address] [place], [place] [address]Dr. Farhat Leal NEUT # 2.9 103/ul Normal 1.4-6.5 [facility] Comment on above: Performed By: #### C BC ####[facility] [address]zklvqgx7[address] [place], [place] [address]Dr. Farhat Leal Neutrophils/100 WBC (Bld) 47.2 % Normal 43.0-75.0 [facility] Comment on above: Performed By: #### C BC ####[facility] [facility] [address]rm[address]rw[address] [place] [phone]. Farhat Leal Platelet mean volume (Bld) [Entitic vol] 11.0 fL Normal 9.5-13.5 [facility] Comment on above: Performed By: #### C BC ####[facility] [address]tw[address] [place] [phone]. Farhat Leal PLT 191 103/ul Normal 150-450 [facility] Comment on above: Performed By: #### C BC ####[facility] Asdgywdbmc[address] [place] [phone]. Farhat Leal RBC 3.92 106/ul Critically low 4.70-6.10 [facility] Comment on above: Performed By: #### C BC ####[facility] Kfxjdperer[address] [place] [address]Dr. Madelynlorri Elvis WBC 6.2 103/ul Normal 4.0-11.0 [facility] Comment on above: Performed By: #### C BC ####[facility] Cbgjfyflja[address] [place], [place] [address]Dr. Farhat Elvis MAGNESIUMon 05-08-2022 Magnesium [Mass/Vol] 1.9 mg/dL Normal 1.8-2.4 [facility] Comment on above: Performed By: #### P HOS, MG ####[facility] [address]aeewsa[address] [place] [address]Dr. Farhat Elvis PHOSPHORUSon 05-08-2022 Phosphate [Mass/Vol] 4.5 mg/dL Normal 2.6-4.7 [facility] Comment on above: Performed By: #### P HOS, MG ####[facility] [address]arrgwlwks[address] [place] [address]Dr. Farhat Leal PROF 14(COMP METB)on 023 Albumin [Mass/Vol] 2.9 g/dL Critically low 3.4-5.0 Th [facility] Comment on above: Performed By: #### C MP ####[facility] Krwikkmbxa[address] [place], [place] [address]Dr. Farhat Leal Albumin/Globulin [Mass ratio] 0.9 {ratio} Normal [facility] Comment on above: Performed By: #### C MP ####[facility] Kofeoldvbf[address] [place] [address]Dr. Farhat Elvis ALP [Catalytic activity/Vol] 70 U/L Normal 46-116 [facility] Comment on above: Performed By: #### C MP ####[facility] Z[address]yr[address] [place] [address]Dr. Farhat Elvis ALT [Catalytic activity/Vol] 13 U/L Critically low 16-63 [facility] Comment on above: Performed By: #### C MP ####[facility] [address]qlijauqxc[address] [place], [place] [address]Dr. Farhat Leal Anion gap [Moles/Vol] 14.6 mmol/L Normal [facility] Comment on above: Performed By: #### C MP ####[facility] Pkuwptpqub[address] [place], [place] [address]Dr. Farhat Leal AST [Catalytic activity/Vol] 17 U/L Normal 15-37 [facility] Comment on above: Performed By: #### C MP ####[facility] Bizgcjxfmo[address] [place], [place] [address]Dr. Farhat Leal Bilirubin [Mass/Vol] 0.8 mg/dL Normal 0.2-1.0 [facility] Comment on above: Performed By: #### C MP ####[facility] Rcezqcumyi[address] [place], [place] [address]Dr. Farhat Leal Calcium [Mass/Vol] 8.9 mg/dL Normal 8.5-10.1 [facility] Comment on above: Performed By: #### C MP ####[facility] Eqvccoogyo250[address] [place], [place] [address]Dr. Farhat Leal Chloride [Moles/Vol] 102 mmol/L Normal 98-107 [facility] Comment on above: Performed By: #### C MP ####[facility] Uutjykukgl[address] [place], [place] [address]Dr. Farhat Leal CO2 [Moles/Vol] 22.9 mmol/L Normal 21.0-32.0 [facility] Comment on above: Performed By: #### C MP ####[facility] Ibolrkznzs[address] [place] [phone]. Farhat Leal Creatinine [Mass/Vol] 1.20 mg/dL Normal 0.70-1.30 [facility] Comment on above: Performed By: #### C MP ####[facility] Iqgsqodgzj12[address] [place] [phone]. Farhat Elvis EGFR-AF RUSSIAN >60 Normal >=60 [facility] Comment on above: Performed By: #### C MP ####[facility] Bonmshnirg[address] [place] [phone]. Farhat Elvis EGFR-NON AF RUSSIAN 59 mL/min/1.73m2 Critically low >=60 [facility] Comment on above: Performed By: #### C MP ####[facility] Meczmumncr[address] [place], [place] [address]Dr. Madelynlorri Leal Globulin (S) [Mass/Vol] 3.1 g/dL Normal [facility] Comment on above: Performed By: #### C MP ####[facility] Bdkkajmexa[address] [place], [place] [address]Dr. Farhat Elvis Glucose [Mass/Vol] 447 mg/dL Critically high 74-106 [facility] Comment on above: Performed By: #### C MP ####[facility] Swastrqlsj[address] [place] [address]Dr. Farhat Leal Potassium [Moles/Vol] 4.5 mmol/L Normal 3.5-5.1 [facility] Comment on above: Performed By: #### C MP ####[facility] Ivllsxkiuo6[address] [place] [address]Dr. Farhat Leal Protein [Mass/Vol] 6.0 g/dL Critically low 6.4-8.2 Th [facility] Comment on above: Performed By: #### C MP ####[facility] Ft[address]zjmimt[address] [place] [address]Dr. Farhat Leal Sodium [Moles/Vol] 135 mmol/L Critically low 136-145 [facility] Comment on above: Performed By: #### C MP ####[facility] Foezhzonzv[address] [place] [address]Dr. Farhat Leal Urea nitrogen [Mass/Vol] 52.0 mg/dL Critically high 7.0-18.0 [facility] Comment on above: Performed By: #### C MP ####[facility] Fcsfyzhoyy[address] [place], [place] [address]Dr. Farhat Leal Urea nitrogen/Creatinine [Mass ratio] 43.3 mg/mg Normal [facility] Comment on above: Performed By: #### C MP ####[facility] Huyhgygngi[address] [place], [place] [address]Dr. Farhat Leal PROTIMEon 05-06-2022 INR Coag (PPP) [Relative time] 2.25 {INR} Normal [facility] Comment on above: Performed By: #### P T ####[facility] [address]zx[address] [place], [place] [address]Dr. Farhat Leal INR GUIDELINES SEE BELOW Normal [facility] Comment on above: Result Comment: MALINA RED INR: 2.0 - 3.0 CONDITIONS NOT LISTED BELOW 2.5 - 3.5 FOR PROSTHETIC HEART VALVE REPLACEMENT 2.5 - 3.5 RECURRENT THROMBOSIS Performed By: #### P T ####[facility] Kirorcvrhn212[address] [place], [place] [address]Dr. Farhat Leal PT Coag (PPP) [Time] 22.8 s Critically high 9.0-11.6 [facility] Comment on above: Performed By: #### P T ####[facility] Vhsiilszky[address] [place], [place] [address]Dr. Farhat Leal FK506 (TACROLIMUS) WHOLE BLO ODon 05-04-2022 Tacrolimus (FK506), Blood 10.4 ng/mL Normal 2.0-20.0 [facility] Comment on above: Result Comment: Trou gh (immediately following transplant) 15.0 . Trough (steady state, 2 weeks or more after transplant): 3.0 - 8.0 . Performed by LC-MS/MS technology. Performed By: #### F K506T ####[facility] Rsqbwfwyju[address] [place] [address]Dr. Farhat Leal CBC AUTO DIFFon 05-01-2022 BASO # 0.1 103/ul Normal 0.0-0.1 [facility] Comment on above: Performed By: #### C BC ####[facility] Kkofixwklr39[address] [place] [address]Dr. Farhat Leal Basophils/100 WBC (Bld) 0.7 % Normal 0.2-2.0 [facility] Comment on above: Performed By: #### C BC ####[facility] Dptrgigczs[address] [place], [place] [address]Dr. Farhat Leal EO # 0.2 103/ul Normal 0.0-0.7 [facility] Comment on above: Performed By: #### C BC ####[facility] Kglwhqzrhn[address] [place], [place] [address]Dr. Farhat Leal Eosinophils/100 WBC (Bld) 3.2 % Normal 0.9-7.0 [facility] Comment on above: Performed By: #### C BC ####[facility] Qhskupoird[address] [place], [place] [address]Dr. Farhat Leal Erythrocyte distribution width (RBC) [Ratio] 16.4 % Critically high 11.0-15.0 [facility] Comment on above: Performed By: #### C BC ####[facility] Jjfetfsgvy[address] [place], [place] [address]Dr. Farhat Leal Hematocrit (Bld) [Volume fraction] 35.1 % Critically low 42.0-54.0 [facility] Comment on above: Performed By: #### C BC ####[facility] Geshxxutkv[address] [place], [place] [address]Dr. Farhat Leal Hemoglobin (Bld) [Mass/Vol] 11.6 g/dL Critically low 14.0-18.0 [facility] Comment on above: Performed By: #### C BC ####[facility] Vtbjmnksaq[address] [place], [place] [address]Dr. Farhat Leal IG # 0.03 10e3/ul Normal 0.00-0.03 [facility] Comment on above: Performed By: #### C BC ####[facility] [address]lmxpavrry6[address] [place] [id number]. Farhat Leal IG % 0.4 % Normal 0.0-0.5 [facility] Comment on above: Performed By: #### C BC ####[facility] Xdigguasnr65[address] [place] [phone]. Farhat Leal LYMPH # 2.4 103/ul Normal 1.2-3.8 [facility] Comment on above: Performed By: #### C BC ####[facility] Hvfomifasu1072 [place] [phone]. Farhat Leal Lymphocytes/100 WBC (Bld) 35.1 % Normal 20.5-60.0 [facility] Comment on above: Performed By: #### C BC ####[facility] Wnulavnvyh32[address] [place] [phone]. Farhat Leal MANUAL DIFF REQ NO Normal [facility] Comment on above: Performed By: #### C BC ####[facility] Brsqhqgjnp2303 [place] [phone]. Farhat Leal MCH (RBC) [Entitic mass] 29.4 pg Normal 25.9-34.0 [facility] Comment on above: Performed By: #### C BC ####[facility] Erokhsdgxb[address] [place] [phone]. Farhat Leal MCHC (RBC) [Mass/Vol] 33.0 g/dL Normal 29.9-35.2 [facility] Comment on above: Performed By: #### C BC ####[facility] [address] [place], [place] [address]Dr. Farhat Leal MCV (RBC) [Entitic vol] 88.9 fL Normal 80.0-94.0 [facility] Comment on above: Performed By: #### C BC ####[facility] [address]zsgq38[address] [place] [phone]. Farhat Elvis MONO # 0.7 103/ul Normal 0.3-0.8 [facility] Comment on above: Performed By: #### C BC ####[facility] Herwtzkvbt6248 [place] [phone]. Farhat Leal Monocytes/100 WBC (Bld) 9.6 % Normal 1.7-12.0 [facility] Comment on above: Performed By: #### C BC ####[facility] Drqweixwwx6756 [place] [phone]. Farhat Leal NEUT # 3.5 103/ul Normal 1.4-6.5 [facility] Comment on above: Performed By: #### C BC ####[facility] Wrkihglbmq39[address] [place] [phone]. Farhat Leal Neutrophils/100 WBC (Bld) 51.0 % Normal 43.0-75.0 [facility] Comment on above: Performed By: #### C BC ####[facility] Hsmglukhng7267 [place] [phone]. Farhat Leal Platelet mean volume (Bld) [Entitic vol] 10.3 fL Normal 9.5-13.5 [facility] Comment on above: Performed By: #### C BC ####[facility] Ytbjczcnty88[address] [place] [phone]. Farhat Leal PLT 184 103/ul Normal 150-450 [facility] Comment on above: Performed By: #### C BC ####[facility] Dakutarhkf[address] [place] [phone]. Farhat Leal RBC 3.95 106/ul Critically low 4.70-6.10 [facility] Comment on above: Performed By: #### C BC ####[facility] Wlbfkzqbft5[address] [place] [phone]. Farhat Leal WBC 7.0 103/ul Normal 4.0-11.0 [facility] Comment on above: Performed By: #### C BC ####[facility] Sszjtxfjkv4[address] [place] [phone]. Farhat Leal PROF 14(COMP METB)on 023 Albumin [Mass/Vol] 2.6 g/dL Critically low 3.4-5.[address] [facility] Comment on above: Performed By: #### C MP ####[facility] Bbkcqtytzj8864 [place] [phone]. Farhat Elvis Albumin/Globulin [Mass ratio] 0.9 {ratio} Normal [facility] Comment on above: Performed By: #### C MP ####[facility] Tqfbgsivhx3507 [place] [phone]. Madelynlorri Leal ALP [Catalytic activity/Vol] 53 U/L Normal 46-116 [facility] Comment on above: Performed By: #### C MP ####[facility] K[address]ziwjehb[address] [place] [address]Dr. Farhat Elvis ALT [Catalytic activity/Vol] 17 U/L Normal 16-63 [facility] Comment on above: Performed By: #### C MP ####[facility] Vrbnmiiwov[address] [place], [place] [address]Dr. Farhat Leal Anion gap [Moles/Vol] 10.0 mmol/L Normal [facility] Comment on above: Performed By: #### C MP ####[facility] Oeoeqjbrkg[address] [place], [place] [address]Dr. Farhat Elvis AST [Catalytic activity/Vol] 19 U/L Normal 15-37 [facility] Comment on above: Performed By: #### C MP ####[facility] Wvzhryexuz[address] [place], [place] [address]Dr. Farhat Leal Bilirubin [Mass/Vol] 0.5 mg/dL Normal 0.2-1.0 [facility] Comment on above: Performed By: #### C MP ####[facility] Ozpsdromjd456[address] [place], [place] [address]Dr. Farhat Leal Calcium [Mass/Vol] 8.4 mg/dL Critically low 8.5-10.[address] [facility] Comment on above: Performed By: #### C MP ####[facility] Jwpnwhuivk[address] [place], [place] [address]Dr. Farhat Leal Chloride [Moles/Vol] 108 mmol/L Critically high 98-107 [facility] Comment on above: Performed By: #### C MP ####[facility] Bknetlryoq47[address] [place] [phone]. Farhat Leal CO2 [Moles/Vol] 26.9 mmol/L Normal 21.0-32.0 [facility] Comment on above: Performed By: #### C MP ####[facility] Wrwjkbfmfd9225 [place] [phone]. Farhat Leal Creatinine [Mass/Vol] 1.20 mg/dL Normal 0.70-1.30 [facility] Comment on above: Performed By: #### C MP ####[facility] Duppmbobfa3441 [place] [phone]. Farhat Leal EGFR-AF RUSSIAN >60 Normal >=60 [facility] Comment on above: Performed By: #### C MP ####[facility] Nzalcnecxa79[address] [place] [address]Dr. Farhat Elvis EGFR-NON AF RUSSIAN 59 mL/min/1.73m2 Critically low >=60 [facility] Comment on above: Performed By: #### C MP ####[facility] Bkgrrarbtp5352 [place] [address]Dr. Farhat Elvis Globulin (S) [Mass/Vol] 3.0 g/dL Normal [facility] Comment on above: Performed By: #### C MP ####[facility] Pxyfflbdzx69[address] [place] [address]Dr. Farhat Leal Glucose [Mass/Vol] 213 mg/dL Critically high 74-106 [facility] Comment on above: Performed By: #### C MP ####[facility] Rotmeqqqdb4133 [place] [address]Dr. Farhat Leal Potassium [Moles/Vol] 3.9 mmol/L Normal 3.5-5.1 [facility] Comment on above: Performed By: #### C MP ####[facility] Dhnspnsgjt5095 [place] [address]Dr. Farhat Leal Protein [Mass/Vol] 5.6 g/dL Critically low 6.4-8.2 [facility] Comment on above: Performed By: #### C MP ####[facility] Ohyvpgrhcn3839 [place] [address]Dr. Madelynlorri Leal Sodium [Moles/Vol] 141 mmol/L Normal 136-145 [facility] Comment on above: Performed By: #### C MP ####[facility] Wpdwxfskwj7[address] [place], [place] [address]Dr. Farhat Elvis Urea nitrogen [Mass/Vol] 61.0 mg/dL Critically high 7.0-18.0 [facility] Comment on above: Performed By: #### C MP ####[facility] Ziunhxxeus29[address] [place], [place] [address]Dr. Farhat Leal Urea nitrogen/Creatinine [Mass ratio] 50.8 mg/mg Normal [facility] Comment on above: Performed By: #### C MP ####[facility] Vraoamfhjd[address] [place], [place] [address]Dr. Farhat Leal FK506 (TACROLIMUS) WHOLE BLO ODon 04-27-2022 Tacrolimus (FK506), Blood 16.5 ng/mL Normal 2.0-20.0 [facility] Comment on above: Result Comment: Trou gh (immediately following transplant) 15.0 . Trough (steady state, 2 weeks or more after transplant): 3.0 - 8.0 . Performed by LC-MS/MS technology. Performed By: #### F [id number] ####[facility] Nwhecsquco[address] [place], [place] [address]Dr. Madelynlorri Leal CBC AUTO DIFFon 04-24-2022 BASO # 0.0 103/ul Normal 0.0-0.1 [facility] Comment on above: Performed By: #### C BC ####[facility] Ecsohqmhul[address] [place], [place] [address]Dr. Farhat Leal Basophils/100 WBC (Bld) 0.5 % Normal 0.2-2.0 [facility] Comment on above: Performed By: #### C BC ####[facility] Bxbgzkzozg[address] [place], [place] [address]Dr. Farhat Leal EO # 0.2 103/ul Normal 0.0-0.7 [facility] Comment on above: Performed By: #### C BC ####[facility] Xlizwtsixf9[address] [place] [phone]. Farhat Leal Eosinophils/100 WBC (Bld) 3.1 % Normal 0.9-7.0 [facility] Comment on above: Performed By: #### C BC ####[facility] Tptkoclwuz1890 [place] [address]Dr. Farhat Leal Erythrocyte distribution width (RBC) [Ratio] 16.3 % Critically high 11.0-15.0 [facility] Comment on above: Performed By: #### C BC ####[facility] Obcgvwbwyu[address] [place], [place] [address]Dr. Farhat Leal Hematocrit (Bld) [Volume fraction] 34.0 % Critically low 42.0-54.0 [facility] Comment on above: Performed By: #### C BC ####[facility] Rcowoumhtx[address] [place], [place] [address]Dr. Farhat Leal Hemoglobin (Bld) [Mass/Vol] 11.6 g/dL Critically low 14.0-18.0 [facility] Comment on above: Performed By: #### C BC ####[facility] Jxtavhmltu9[address] [place], [place] [address]Dr. Farhat Leal IG # 0.02 10e3/ul Normal 0.00-0.03 [facility] Comment on above: Performed By: #### C BC ####[facility] Upvbgxxlur186[address] [place], [place] [address]Dr. Farhat Leal IG % 0.4 % Normal 0.0-0.5 [facility] Comment on above: Performed By: #### C BC ####[facility] Ntglqzlpvw[address] [place], [place] [address]Dr. Farhat Leal LYMPH # 2.2 103/ul Normal 1.2-3.8 [facility] Comment on above: Performed By: #### C BC ####[facility] Ilautcrdge259[address] [place], [place] [address]Dr. Farhat Leal Lymphocytes/100 WBC (Bld) 38.8 % Normal 20.5-60.0 [facility] Comment on above: Performed By: #### C BC ####[facility] Fonfyhhhfw[address] [place] [phone]. Farhat Leal MANUAL DIFF REQ NO Normal [facility] Comment on above: Performed By: #### C BC ####[facility] Celyjpbtjh2371 [place] [phone]. Farhat Leal MCH (RBC) [Entitic mass] 30.1 pg Normal 25.9-34.0 [facility] Comment on above: Performed By: #### C BC ####[facility] Fsvlqflmnz[address] [place], [place] [address]Dr. Farhat Leal MCHC (RBC) [Mass/Vol] 34.1 g/dL Normal 29.9-35.2 [facility] Comment on above: Performed By: #### C BC ####[facility] Dimbgaavud153[address] [place], [place] [address]Dr. Farhat Leal MCV (RBC) [Entitic vol] 88.1 fL Normal 80.0-94.0 [facility] Comment on above: Performed By: #### C BC ####[facility] Zaitqjagvx[address] [place], [place] [address]Dr. Farhat Lael MONO # 0.6 103/ul Normal 0.3-0.8 [facility] Comment on above: Performed By: #### C BC ####[facility] Veqygzanay146[address] [place], [place] [address]Dr. Farhat Elvis Monocytes/100 WBC (Bld) 10.8 % Normal 1.7-12.0 [facility] Comment on above: Performed By: #### C BC ####[facility] [address]pspe[address] [place], [place] [address]Dr. Farhat Leal NEUT # 2.6 103/ul Normal 1.4-6.5 [facility] Comment on above: Performed By: #### C BC ####[facility] Kemyfwutbl[address] [place], [place] [address]Dr. Farhat Leal Neutrophils/100 WBC (Bld) 46.4 % Normal 43.0-75.0 [facility] Comment on above: Performed By: #### C BC ####[facility] Eixintawgw98[address] [place] [phone]. Farhat Leal Platelet mean volume (Bld) [Entitic vol] 10.9 fL Normal 9.5-13.5 [facility] Comment on above: Performed By: #### C BC ####[facility] Joolcgeiqg0886 [place] [phone]. Madelynlorri Leal PLT 159 103/ul Normal 150-450 [facility] Comment on above: Performed By: #### C BC ####[facility] Rnomgoioyf0497 [place] [phone]. Farhat Leal RBC 3.86 106/ul Critically low 4.70-6.10 [facility] Comment on above: Performed By: #### C BC ####[facility] Gviuyqywmw69[address] [place] [address]Dr. Farhat Leal WBC 5.6 103/ul Normal 4.0-11.0 [facility] Comment on above: Performed By: #### C BC ####[facility] Hujfrxvvcc8[address] [place] [address]Dr. Farhat Leal PROTIMEon 04-24-2022 INR Coag (PPP) [Relative time] 3.23 {INR} Normal [facility] Comment on above: Performed By: #### P T ####[facility] Mmjiftnfmn408[address] [place], [place] [address]DrSkylar Leal INR GUIDELINES SEE BELOW Normal [facility] Comment on above: Result Comment: MALINA RED INR: 2.0 - 3.0 CONDITIONS NOT LISTED BELOW 2.5 - 3.5 FOR PROSTHETIC HEART VALVE REPLACEMENT 2.5 - 3.5 RECURRENT THROMBOSIS Performed By: #### P T ####[facility] Pxpalnzmbd[address] [place], [place] [address]DrSyklar Leal PT Coag (PPP) [Time] 32.0 s Critically high 9.0-11.6 [facility] Comment on above: Performed By: #### P T ####[facility] Kxnnkqjjgf[address] [place], [place] [address]DrSkylar Leal FK506 (TACROLIMUS) WHOLE BLO ODon 04-20-2022 Tacrolimus (FK506), Blood 13.9 ng/mL Normal 2.0-20.0 [facility] Comment on above: Result Comment: Trou gh (immediately following transplant) 15.0 . Trough (steady state, 2 weeks or more after transplant): 3.0 - 8.0 . Performed by LC-MS/MS technology. Performed By: #### F K506T ####[facility] X[address]fbnwxjg[address] [place], [place] [address]DrSkylar Leal CBC AUTO DIFFon 04-17-2022 BASO # 0.0 103/ul Normal 0.0-0.1 [facility] Comment on above: Performed By: #### C BC ####[facility] Drwkqcujyj355[address] [place], [place] [address]DrSkylar Leal Basophils/100 WBC (Bld) 0.4 % Normal 0.2-2.0 [facility] Comment on above: Performed By: #### C BC ####[facility] Qljymhakab[address] [place], [place] [address]DrSkylar Leal EO # 0.2 103/ul Normal 0.0-0.7 [facility] Comment on above: Performed By: #### C BC ####[facility] Xgicnzhibu[address] [place], [place] [address]DrSkylar Leal Eosinophils/100 WBC (Bld) 2.8 % Normal 0.9-7.0 [facility] Comment on above: Performed By: #### C BC ####[facility] Rdeafanqwj[address] [place], [place] [address]DrSkylar Leal Erythrocyte distribution width (RBC) [Ratio] 16.1 % Critically high 11.0-15.0 [facility] Comment on above: Performed By: #### C BC ####[facility] Junrqbhqfa[address] [place], [place] [address]DrSkylar Leal Hematocrit (Bld) [Volume fraction] 35.7 % Critically low 42.0-54.0 [facility] Comment on above: Performed By: #### C BC ####[facility] Hrhsnpqbvr[address] [place], [place] [address]Dr. Farhat Leal Hemoglobin (Bld) [Mass/Vol] 12.2 g/dL Critically low 14.0-18.0 [facility] Comment on above: Performed By: #### C BC ####[facility] Svckylxnqw[address] [place] [address]Dr. Farhat Leal IG # 0.03 10e3/ul Normal 0.00-0.03 [facility] Comment on above: Performed By: #### C BC ####[facility] Yuulhtmqng0605 [place] [address]Dr. Farhat Leal IG % 0.4 % Normal 0.0-0.5 [facility] Comment on above: Performed By: #### C BC ####[facility] Xvdtflajrc[address] [place], [place] [address]DrSkylar Leal LYMPH # 2.4 103/ul Normal 1.2-3.8 [facility] Comment on above: Performed By: #### C BC ####[facility] Usuatqnyhr[address] [place], [place] [address]Dr. Farhat Leal Lymphocytes/100 WBC (Bld) 36.1 % Normal 20.5-60.0 [facility] Comment on above: Performed By: #### C BC ####[facility] Smmzyumojo[address] [place], [place] [address]DrSkylar Leal MANUAL DIFF REQ NO Normal [facility] Comment on above: Performed By: #### C BC ####[facility] [address] [place], [place] [address]DrSkylar Leal MCH (RBC) [Entitic mass] 30.3 pg Normal 25.9-34.0 [facility] Comment on above: Performed By: #### C BC ####[facility] [address]wqa[address] [place], [place] [address]Dr. Farhat Leal MCHC (RBC) [Mass/Vol] 34.2 g/dL Normal 29.9-35.2 [facility] Comment on above: Performed By: #### C BC ####[facility] Dikpunktgz[address] [place], [place] [address]DrSkylar Leal MCV (RBC) [Entitic vol] 88.6 fL Normal 80.0-94.0 [facility] Comment on above: Performed By: #### C BC ####[facility] [address] [place] [address]DrSkylar Farhat Leal MONO # 0.7 103/ul Normal 0.3-0.8 [facility] Comment on above: Performed By: #### C BC ####[facility] Dthdgkafbh[address] [place], [place] [address]DrSkylar Farhat Leal Monocytes/100 WBC (Bld) 10.1 % Normal 1.7-12.0 [facility] Comment on above: Performed By: #### C BC ####[facility] [address] [place], [place] [address]DrSkylar Farhat Leal NEUT # 3.4 103/ul Normal 1.4-6.5 [facility] Comment on above: Performed By: #### C BC ####[facility] Cokwcqysmi[address] [place], [place] [address]DrSkylar Farhat Leal Neutrophils/100 WBC (Bld) 50.2 % Normal 43.0-75.0 [facility] Comment on above: Performed By: #### C BC ####[facility] Hqfwyuelvp[address] [place], [place] [address]DrSkylar Farhat Elvis Platelet mean volume (Bld) [Entitic vol] 11.8 fL Normal 9.5-13.5 [facility] Comment on above: Performed By: #### C BC ####[facility] Bzuw[address]lwj[address] [place], [place] [address]Dr. Farhat Elvis PLT 193 103/ul Normal 150-450 [facility] Comment on above: Performed By: #### C BC ####[facility] [address] [place], [place] [address]DrSkylar Joshilorri Elvis RBC 4.03 106/ul Critically low 4.70-6.10 [facility] Comment on above: Performed By: #### C BC ####[facility] [address] [place], [place] [address]DrSkylar Joshilorri Leal WBC 6.8 103/ul Normal 4.0-11.0 [facility] Comment on above: Performed By: #### C BC ####[facility] C[address]pqccyeph[address] [place], [place] [address]Dr. Farhat Leal PROF 14(COMP METB)on 023 Albumin [Mass/Vol] 2.9 g/dL Critically low 3.4-5.[address] [facility] Comment on above: Performed By: #### C MP ####[facility] Dxpvmbmefw[address] [place], [place] [address]Dr. Farhat Leal Albumin/Globulin [Mass ratio] 0.9 {ratio} Normal [facility] Comment on above: Performed By: #### C MP ####[facility] J[address]lxwmgdn[address] [place], [place] [address]Dr. Farhat Leal ALP [Catalytic activity/Vol] 67 U/L Normal 46-116 [facility] Comment on above: Performed By: #### C MP ####[facility] J[address]jcwwyjt[address] [place], [place] [address]Dr. Farhat Leal ALT [Catalytic activity/Vol] 15 U/L Critically low 16-63 [facility] Comment on above: Performed By: #### C MP ####[facility] Ixikaiyttk[address] [place], [place] [address]Dr. Farhat Leal Anion gap [Moles/Vol] 10.8 mmol/L Normal [facility] Comment on above: Performed By: #### C MP ####[facility] Sdxboklsdl[address] [place], [place] [address]Dr. Farhat Leal AST [Catalytic activity/Vol] 23 U/L Normal 15-37 [facility] Comment on above: Performed By: #### C MP ####[facility] Sfbcgjjtin[address] [place], [place] [address]Dr. Farhat Leal Bilirubin [Mass/Vol] 0.6 mg/dL Normal 0.2-1.0 [facility] Comment on above: Performed By: #### C MP ####[facility] Uvnbligjiw[address] [place], [place] [address]Dr. Farhat Leal Calcium [Mass/Vol] 8.7 mg/dL Normal 8.5-10.1 [facility] Comment on above: Performed By: #### C MP ####[facility] [address] [place] [address]Dr. Farhat Leal Chloride [Moles/Vol] 105 mmol/L Normal 98-107 [facility] Comment on above: Performed By: #### C MP ####[facility] [address]stic[address] [place] [address]Dr. Farhat Leal CO2 [Moles/Vol] 29.5 mmol/L Normal 21.0-32.0 [facility] Comment on above: Performed By: #### C MP ####[facility] Stwujvcayl[address] [place], [place] [address]Dr. Farhat Elvis Creatinine [Mass/Vol] 1.37 mg/dL Critically high 0.70-1.30 [facility] Comment on above: Performed By: #### C MP ####[facility] Larqralxiz43[address] [place], [place] [address]Dr. Farhat Elvis EGFR-AF RUSSIAN >60 Normal >=60 [facility] Comment on above: Performed By: #### C MP ####[facility] [address]fhvjmlpt[address] [place], [place] [address]Dr. Farhat Elvis EGFR-NON AF RUSSIAN 50 mL/min/1.73m2 Critically low >=60 [facility] Comment on above: Performed By: #### C MP ####[facility] Do[address]ervyqee[address] [place], [place] [address]Dr. Farhat Elvis Globulin (S) [Mass/Vol] 3.1 g/dL Normal [facility] Comment on above: Performed By: #### C MP ####[facility] [address] [place] [address]Dr. Farhat Leal Glucose [Mass/Vol] 203 mg/dL Critically high 74-106 [facility] Comment on above: Performed By: #### C MP ####[facility] [address] [place] [address]Dr. Farhat Leal Potassium [Moles/Vol] 4.3 mmol/L Normal 3.5-5.1 [facility] Comment on above: Performed By: #### C MP ####[facility] [address] [place] [address]Dr. Farhat Leal Protein [Mass/Vol] 6.0 g/dL Critically low 6.4-8.2 [facility] Comment on above: Performed By: #### C MP ####[facility] Xfulwslrkj[address] [place], [place] [address]Dr. Farhat Leal Sodium [Moles/Vol] 141 mmol/L Normal 136-145 [facility] Comment on above: Performed By: #### C MP ####[facility] Hrvtihjbku[address] [place], [place] [address]Dr. Farhat Leal Urea nitrogen [Mass/Vol] 65.0 mg/dL Critically high 7.0-18.0 [facility] Comment on above: Performed By: #### C MP ####[facility] Gddbdgaort[address] [place], [place] [address]Dr. Farhat Leal Urea nitrogen/Creatinine [Mass ratio] 47.4 mg/mg Normal [facility] Comment on above: Performed By: #### C MP ####[facility] Xhrxogwcmc[address] [place], [place] [address]Dr. Farhat Leal PROTIMEon 04-15-2022 INR Coag (PPP) [Relative time] 3.88 {INR} Normal [facility] Comment on above: Performed By: #### P T ####[facility] F[address]jregvcv[address] [place], [place] [address]Dr. Farhat Leal INR GUIDELINES SEE BELOW Normal [facility] Comment on above: Result Comment: MALINA RED INR: 2.0 - 3.0 CONDITIONS NOT LISTED BELOW 2.5 - 3.5 FOR PROSTHETIC HEART VALVE REPLACEMENT 2.5 - 3.5 RECURRENT THROMBOSIS Performed By: #### P T ####[facility] K[address]ksulhsj[address] [place], [place] [address]Dr. Farhat Leal PT Coag (PPP) [Time] 38.1 s Critically high 9.0-11.6 [facility] Comment on above: Performed By: #### P T ####[facility] [address] [place] [id number]. Farhat Leal Glucose Glucometer (BldC) [M ass/Vol]Ordered By: Sadia Aguilar on 04-14-2022 Glucose [Mass/Vol] 162 mg/dL [facility] Comment on above: Random Glucose Refer ence Range is dependent on time and content of last meal. Glucose of more than 200 mg/dL in a nonstressed, ambulatory subject supports the diagnosis of Diabetes Mellitus. Glucose Poct Glucometerson 0 04-14-2022 Commemt1 Glu2: Cleaned Meter Normal [facility] Comment on above: Result Comment: PERF ORMED BY: [facility] [address] [place] [address] PATHOLOGIST [employer]ACH[employer] JOSE F ELLIOTT M.D. Performed By: #### G LULS #### Point of Care testing , Glucose [Mass/Vol] 162 mg/dL Normal [facility] Comment on above: Result Comment: [place] om Glucose Reference Range is dependent on time and content of last meal. Glucose of more than 200 mg/dL in a nonstressed, ambulatory subject supports the diagnosis of Diabetes Mellitus. Performed By: #### G LULS #### Point of Care testing , No Panel InformationOrdered By: Sadia Aguilar on 04-14-2022 Bedside Glucose Comment Glu2: cleaned meter [facility] MAGNESIUMon 04-13-2022 Magnesium [Mass/Vol] 1.7 mg/dL Critically low 1.8-2.4 [facility] Comment on above: Performed By: #### M Anais PHOS ####[facility] [address] [place] [id number]. Farhat Leal PHOSPHORUSon 04-13-2022 Phosphate [Mass/Vol] 4.8 mg/dL Critically high 2.6-4.7 [facility] Comment on above: Performed By: #### M Anais PHOS ####[facility] [address] [place] [address]Dr. Farhat Leal PROTIMEon 04-13-2022 INR Coag (PPP) [Relative time] 3.16 {INR} Normal [facility] Comment on above: Performed By: #### P T ####[facility] [address] [place] [address]Dr. Farhat Leal INR GUIDELINES SEE BELOW Normal [facility] Comment on above: Result Comment: MALINA RED INR: 2.0 - 3.0 CONDITIONS NOT LISTED BELOW 2.5 - 3.5 FOR PROSTHETIC HEART VALVE REPLACEMENT 2.5 - 3.5 RECURRENT THROMBOSIS Performed By: #### P T ####[facility] [address] [place] [address]Dr. Farhat Leal PT Coag (PPP) [Time] 31.4 s Critically high 9.0-11.6 [facility] Comment on above: Performed By: #### P T ####[facility] [address] [place] [address]Dr. Farhat Leal MAGNESIUMon 03-11-2022 Magnesium [Mass/Vol] 1.6 mg/dL Critically low 1.8-2.4 [facility] Comment on above: Performed By: #### M Anais PHOS ####[facility] [address] [place] [address]Dr. Farhat Leal PHOSPHORUSon 03-11-2022 Phosphate [Mass/Vol] 5.3 mg/dL Critically high 2.6-4.7 [facility] Comment on above: Performed By: #### Demetrice Manzo PHOS ####[facility] [address] [place] [address]DrSkylar Leal CNOVon 02-26-2022 CNOV Office Visit (HONYE ) ALEX ALMONTE ([id number]) 1945 M TRN Date Time Provider Department 02/26/22 3:00 PM KHALIFEH, ALI VASSMN During your visit today, we recorded the following information about you: Temperature Pulse Blood pressure 96.6 degrees 75/minute 88/75 Hina Peterson MD, MD 02/26/2022 4:31 PM Signed [facility] [place] DEPARTMENT OF VASCULAR SURGERY OUTPATIENT VISIT DATE [...] his postop visit. He has been in halfway since then and has been recovering from his acute on chronic congestive heart failure. His wound has largely been healing without any issues and the maxwell and sutures were removed at the nursing facility. He comes here with a lateral wound eschar. He denies any fevers, chills, or any drainage. He is on anticoagulation. 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 [employer] [place] with lunch aspirin, enteric coated (ASPIRIN, ENTERIC COATED) 81 mg EC tablet Take 1 tablet by (more content not included)... Normal [facility] PROTIMEon 02-25-2022 INR Coag (PPP) [Relative time] 1.31 {INR} Normal [facility] Comment on above: Performed By: #### P T ####[facility] [address] [place] [address]DrSkylar Leal INR GUIDELINES SEE BELOW Normal [facility] Comment on above: Result Comment: MALINA RED INR: 2.0 - 3.0 CONDITIONS NOT LISTED BELOW 2.5 - 3.5 FOR PROSTHETIC HEART VALVE REPLACEMENT 2.5 - 3.5 RECURRENT THROMBOSIS Performed By: #### P T ####[facility] [address] [place] [id number] Leal PT Coag (PPP) [Time] 13.7 s Critically high 9.0-11.6 [facility] Comment on above: Performed By: #### P T ####[facility] [address] [place] [address]DrSkylar Hassan 02-19-2022 DIAMANTEN Telephone (TXCTGL) ALEX ALMONTE ([id number]) 1945 M TRN Date Time Provider Department 02/19/22 AUGUSTA MEDRANO During your visit today, we recorded the following information about you: Augusta Medrano RN 02/19/2022 11:16 AM Signed Gatzkejesús [facility], called regarding elevated tacrolimus level (23.9). Spoke [...] by mouth daily with lunch. 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 DIABETES UNCOMPL ADULT-UNCONTRLLED [[id number]] 02/24/2002 KIDNEY TRANSPLANT STATUS [Z94.0] 09/07/2003 PROPHYLACTIC IMMUNOTHERAPY [Z29.8] 07/30/2006 LONG-TERM STEROIDS [[id number]] 07/30/2006 VITAMIN D DEFICIENCY NOS [E55.9] 09/07/2008 [...] diabetes mellitus with diabetic peripher*11/29/2021 Atherosclerosis of stony river artery of extremity w*11/29/2021 Malnutrition of moderate degree (HCC) [E44.0] 12/01/2021 Dermatitis associated with moisture [L30.8] 12/04/2021 Encounter Status:Closed by AUGUSTA MEDRANO on 02/19/22 [facility] Sonya 02-18-2022 CNPN Telephone (PODCCP) ALEX ALMONTE Kate ([id number]) 1945 M TRN Date Time Provider Department 02/18/22 DEVON MOREIRA During your visit today, we recorded the following information about you: Yumiko Camelia 02/18/2022 3:16 PM Signed Reason for call: Mr. Almonte would like to request a sooner appointment with Dr. Peterson than 04/13/2022. Contact Name (if not the patient) Alex's nurse Home and cell number(Ask for Alex's nurse) [phone] Diagnosis 4 mo f/u wound check Best [...] by mouth daily with lunch. 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 DIABETES UNCOMPL ADULT-UNCONTRLLED [[id number]] 02/24/2002 KIDNEY TRANSPLANT STATUS [Z94.0] 09/07/2003 PROPHYLACTIC IMMUNOTHERAPY [Z29.8] 07/30/2006 CABLE REPAIRER STEROIDS [[id number]] 07/30/2006 VITAMIN D DEFICIENCY NOS [E55.9] 09/07/2008 [...] diabetes mellitus with diabetic peripher*11/29/2021 Atherosclerosis of stony river artery of extremity w*11/29/2021 Malnutrition of moderate degree (HCC) [E44.0] 12/01/2021 Dermatitis associated with moisture [L30.8] 12/04/2021 Encounter Status:Closed by CHEASTY (more content not included)... Normal [facility] CNOVon 02-05-2022 CNOV Office Visit (TXCTGL ) ALEX ALMONTE ([id number]) 1945 M TRN Date Time Provider Department 02/05/22 8:20 AM KIDNEY TXP CLINIC TXCTGL During your visit today, we recorded the following information about you: Temperature Pulse Blood pressure 96.7 degrees 79/minute 72/42 Asia Pike MD 02/05/2022 9:38 AM Signed [facility] [place] Transplant Follow up Portions of this note were copied from the last encounter. Changes were made to appropriately reflect updated history and interval events, physical exam, data review, and medical decision making. Patient presents for renal tx follow up care - Hospital admission / discharge in November 2021 for osteomyelitis HPI: Zevjesús Suzy is a 76 yr old male, [...] and snacks patient declined. Indra scale at [facility]: 166.2 lbs per patient. Bed sore on coccyx causing discomfort. Being changed regularly at SNF- reported to be smaller around but still as deep. Patient not very up to date with medications. Patient brought paperwork from [facility] with all medications being received. Patient unsure if they have been drawing labs regularly. Last Tac from 01/19: 12.9 and K 5.9. In need of current labs. Lab orders will be sent with patient and follows as below: [facility] Trans[facility] Standing Lab Orders [address] [place], [place] [address] February 05, 2022 Alex Almonte 1945 [id number] STANDARD TESTING: Diagnosis Codes: Z94.0 Kidney Transplant [...] AT YOUR LABORATORY FACILITY AND FAX TO [phone]. PLEASE CALL [phone]. Provider: Dr. Pike Current Outpatient Medications Medication [...] Take 237 (more content not included)... Normal [facility] PROTEIN CREATININE RATIOon 1 04-08-2021 Protein/Creatinine (U) [Mass ratio] 0.10 mg/mg <0.15 mg/mg [facility] PROTIMEon 02-05-2022 INR Coag (PPP) [Relative time] 2.90 {INR} Normal [facility] Comment on above: Performed By: #### P T ####[facility] [address] [place] [address]Dr. Farhat Leal INR GUIDELINES SEE BELOW Normal [facility] Comment on above: Result Comment: MALINA RED INR: 2.0 - 3.0 CONDITIONS NOT LISTED BELOW 2.5 - 3.5 FOR PROSTHETIC HEART VALVE REPLACEMENT 2.5 - 3.5 RECURRENT THROMBOSIS Performed By: #### P T ####[facility] [address] [place] [address]DrSkylar Leal PT Coag (PPP) [Time] 29.2 s Critically high 9.0-11.6 [facility] Comment on above: Performed By: #### P T ####[facility] [address] [place] [address]Dr. Farhat Leal Prot/Creat Uron 02-05-2022 Protein/Creatinine (U) [Mass ratio] 0.10 mg/mg Normal <0.15 [facility] Comment on above: Order Comment: Speci men Type: URINE SPECIMENOrdering Facility: [facility] Address: [address] [place], [place] [id number] Result Comment: Adul t Proteinuria Categories: <0.15 mg/mg is considered normal to mildly increased 0.15 - 0.50 mg/mg is considered moderately increased >0.50 mg/mg is considered severely increased KDIGO. (2013). KDIGO 2012 Clinical Practice Guideline for the Evaluation and Management of Chronic Kidney Disease. Official Journal of the International Society of Nephrology, 3(1), 1-150. Performed By: #### 2 890-2 ####[facility] LABCLIA [id number] [place] Protein/Creatinine (U) [Mass ratio]on 02-05-2022 Creatinine (U) [Mass/Vol] 86.9 mg/dL 20.0 - 300.0 mg/dL [facility] Protein (U) [Mass/Vol] 9 mg/dL 0 - 20 mg/dL [facility] Creatinine (U) [Mass/Vol] 86.9 mg/dL Normal 20.0-300.0 [facility] Comment on above: Order Comment: Speci men Type: URINE SPECIMENOrdering Facility: [facility] Address: [address] [place] [address] Performed By: #### 2 890-2 ####[facility] LABCLIA [id number] [address] [place] Protein (U) [Mass/Vol] 9 mg/dL Normal 0-20 [facility] Comment on above: Order Comment: Speci men Type: URINE SPECIMENOrdering Facility: [facility] Address: [address] [place] [address] Performed By: #### 2 890-2 ####[facility] LABCLIA [id number] [place] [address] [place] URINALYSIS, DIPSTICK ONLYon 02-05-2022 Bilirubin Ql (U) Negative Normal Negative [facility] Comment on above: Order Comment: Speci men Type: URINE SPECIMEN [facility] Address: [address] [place] [address] Performed By: #### U A #### [facility] CLIA [id number] [address] [place] [address] [place] Clarity (Unsp spec) Clear Normal Clear [facility] Comment on above: Order Comment: Speci men Type: URINE SPECIMEN [facility] Address: [address] [place] [address] Performed By: #### U A #### [facility] CLIA [id number] [address] [place] [address] [place] Color (U) Yellow Normal Yellow [facility] Comment on above: Order Comment: Speci men Type: URINE SPECIMEN [facility] Address: [address] [address] Performed By: #### U A #### [facility] CLIA [id number] [address] [place] [address] [place] Glucose Test strip (U) [Mass/Vol] 3+ Abnormal Trace, Negative [facility] Comment on above: Order Comment: Speci men Type: URINE SPECIMEN [facility] Address: [address] [address] Performed By: #### U A #### [facility] CLIA [id number] [address] [place] [address] [place] Hemoglobin Ql (U) Negative Normal Negative, Trace [facility] Comment on above: Order Comment: Speci men Type: URINE SPECIMEN [facility] Address: [address] [address] Performed By: #### U A #### [facility] CLIA [id number] [address] [place] [address] [place] Ketones Ql (U) Trace Normal Negative, Trace [facility] Comment on above: Order Comment: Speci men Type: URINE SPECIMEN [facility] Address: [address] Performed By: #### U A #### [facility] CLIA [id number] [address] [place] [address] [facility] [place] Leukocyte esterase Test strip Ql (U) Negative Normal Negative, 25 Loraine/mL [facility] Comment on above: Order Comment: Speci men Type: URINE SPECIMEN [facility] Address: [address] Performed By: #### U A #### [facility] CLIA [id number] [address] [place] [address] [place] Nitrite Ql (U) Negative Normal Negative [facility] Comment on above: Order Comment: Speci men Type: URINE SPECIMEN [facility] Address: [address] [place] [address] Performed By: #### U A #### [facility] CLIA [id number] [address] [place] [address] [place] pH (U) 5.5 [pH] Normal 5.0-8.0 [facility] Comment on above: Order Comment: Speci men Type: URINE SPECIMEN [facility] Address: [address] [place] [address] Performed By: #### U A #### [facility] CLIA [id number] [address] [place] [address] [place] Protein (U) [Mass/Vol] Negative Normal Trace , Negative [facility] Comment on above: Order Comment: Speci men Type: URINE SPECIMEN [facility] Address: [address] [place] [address] Performed By: #### U A #### [facility] CLIA [id number] [address] [place] [address] [place] Specific gravity (U) [Rel density] 1.014 Normal 1.005-1.030 [facility] Comment on above: Order Comment: Speci men Type: URINE SPECIMEN [facility] Address: [address] [place] [address] Performed By: #### U A #### [facility] CLIA [id number] [address] [place] [address] [place] Urobilinogen Ql (U) 1+ Abnormal Negative [facility] Comment on above: Order Comment: Speci men Type: URINE SPECIMEN [facility] Address: [address] [place] [address] Performed By: #### U A #### [facility] CLIA [id number] [address] [place] [address] [place] Bilirubin Ql (U) Negative Negative [facility] Clarity (Unsp spec) Clear Clear [facility] Color (U) Yellow Yellow [facility] Glucose Test strip (U) [Mass/Vol] 3+ Abnormal Trace, Negative [facility] Hemoglobin Ql (U) Negative Negative, Trace [facility] Ketones Ql (U) Trace Negative, Trace [facility] Leukocyte esterase Test strip Ql (U) Negative Negative, 25 Loraine/mL [facility] Nitrite Ql (U) Negative Negative [facility] pH (U) 5.5 [pH] 5.0 - 8.0 [facility] Protein (U) [Mass/Vol] Negative Trace , Negative [facility] Specific gravity (U) [Rel density] 1.014 1.005 - 1.030 [facility] Urobilinogen Ql (U) 1+ Abnormal Negative [facility] FK506 (TACROLIMUS) WHOLE BLO ODon 01-29-2022 Tacrolimus (FK506), Blood 11.1 ng/mL Normal 2.0-20.0 [facility] Comment on above: Result Comment: Trou gh (immediately following transplant) 15.0 . Trough (steady state, 2 weeks or more after transplant): 3.0 - 8.0 . Performed by LC-MS/MS technology. Performed By: #### F K506T ####[facility] Gyrnbpdq[address] [place], [place] [address]DrSkylar Leal PHOSPHORUSon 01-26-2022 Phosphate [Mass/Vol] 4.1 mg/dL Normal 2.6-4.7 [facility] Comment on above: Performed By: #### C HENRI MARROQUIN ####[facility] Zioyycikoi[address] [place], [place] [address]DrSkylar Leal PROF 14(COMP METB)on 022 Albumin [Mass/Vol] 2.1 g/dL Critically low 3.4-5.[address] [facility] Comment on above: Performed By: #### C HENRI MARROQUIN ####[facility] [address] [place] [address]Dr. Farhat Leal Albumin/Globulin [Mass ratio] 0.6 {ratio} Normal [facility] Comment on above: Performed By: #### C CARA, PHOS ####[facility] Njlolaqw[address] [place], [place] [address]Dr. Farhat Leal ALP [Catalytic activity/Vol] 89 U/L Normal 46-116 [facility] Comment on above: Performed By: #### C CARA, PHOS ####[facility] Jyqtyxgofc[address] [place], [place] [address]Dr. Farhat Leal ALT [Catalytic activity/Vol] 27 U/L Normal 16-63 [facility] Comment on above: Performed By: #### C CARA, PHOS ####[facility] Wxytfxqtej[address] [place], [place] [address]Dr. Farhat Leal Anion gap [Moles/Vol] 12.3 mmol/L Normal [facility] Comment on above: Performed By: #### C CARA, PHOS ####[facility] Elzqgerlht[address] [place], [place] [address]Dr. Farhat Leal AST [Catalytic activity/Vol] 53 U/L Critically high 15-37 [facility] Comment on above: Performed By: #### C CARA, PHOS ####[facility] Lavqohwenb058[address] [place], [place] [address]Dr. Farhat Leal Bilirubin [Mass/Vol] 0.6 mg/dL Normal 0.2-1.0 [facility] Comment on above: Performed By: #### C CARA, PHOS ####[facility] Biommpebrp[address] [place], [place] [address]Dr. Farhat Leal Calcium [Mass/Vol] 8.0 mg/dL Critically low 8.5-10.[address] [facility] Comment on above: Performed By: #### C CARA, PHOS ####[facility] U[address] [place], [place] [address]Dr. Farhat Elvis Chloride [Moles/Vol] 97 mmol/L Critically low 98-107 [facility] Comment on above: Performed By: #### C CARA, PHOS ####[facility] [address] [place] [phone]. Farhat Leal CO2 [Moles/Vol] 26.6 mmol/L Normal 21.0-32.0 [facility] Comment on above: Performed By: #### C CARA, PHOS ####[facility] [address]sw[address]ax[address] [place] [phone]. Farhat Leal Creatinine [Mass/Vol] 1.03 mg/dL Normal 0.70-1.30 [facility] Comment on above: Performed By: #### C CARA, PHOS ####[facility] [address]tsmytw[address] [place] [phone]. Farhat Leal EGFR-AF RUSSIAN >60 Normal >=60 [facility] Comment on above: Performed By: #### C CARA, PHOS ####[facility] [address] [place] [address]Dr. Farhat Leal EGFR-NON AF RUSSIAN >60 Normal >=60 [facility] Comment on above: Performed By: #### C CARA, PHOS ####[facility] [address] [place] [address]Dr. Farhat Leal Globulin (S) [Mass/Vol] 3.7 g/dL Normal [facility] Comment on above: Performed By: #### C CARA, PHOS ####[facility] [address]bspcnk[address] [place] [address]Dr. Farhat Leal Glucose [Mass/Vol] 287 mg/dL Critically high 74-106 [facility] Comment on above: Performed By: #### C CARA, PHOS ####[facility] Wqbzywfhco[address] [place] [address]Dr. Farhat Leal Potassium [Moles/Vol] 3.9 mmol/L Normal 3.5-5.1 [facility] Comment on above: Performed By: #### C CARA, PHOS ####[facility] [address]sw[address]xcoom[address] [place] [address]Dr. Farhat Leal Protein [Mass/Vol] 5.8 g/dL Critically low 6.4-8.2 [facility] Comment on above: Performed By: #### C CARA, PHOS ####[facility] Oxlmxckhxx[address] [place] [phone]. Farhat Leal Sodium [Moles/Vol] 132 mmol/L Critically low 136-145 Th [facility] Comment on above: Performed By: #### C MP, PHOS ####[facility] [address]surmmu[address] [place] [phone]. Farhat Leal Urea nitrogen [Mass/Vol] 23.0 mg/dL Critically high 7.0-18.0 [facility] Comment on above: Performed By: #### C CARA, PHOS ####[facility] Gdocfuakdi[address] [place], [place] [address]Dr. Farhat Leal Urea nitrogen/Creatinine [Mass ratio] 22.3 mg/mg Normal [facility] Comment on above: Performed By: #### C CARA, PHOS ####[facility] Zkmxvevhxf[address] [place], [place] [address]Dr. Farhat Leal FK506 (TACROLIMUS) WHOLE BLO ODon 01-21-2022 Tacrolimus (FK506), Blood 12.2 ng/mL Normal 2.0-20.0 [facility] Comment on above: Result Comment: Trou gh (immediately following transplant) 15.0 . Trough (steady state, 2 weeks or more after transplant): 3.0 - 8.0 . Performed by LC-MS/MS technology. Performed By: #### F K506T ####[facility] Fgmibiteyd[address] [place], [place] [address]Dr. Farhat Leal ACID FAST SMEAR AND CXon Acid Fast Culture Negative Normal [facility] Comment on above: Result Comment: No a abdiel fast bacilli isolated after 6 weeks. Performed By: #### A FB ####[facility] Czcqloboie[address] [place], [place] [address]Dr. Farhat Leal Acid Fast Smear Negative Normal [facility] Comment on above: Performed By: #### A FB ####[facility] [address]jnpepxktx[address] [place], [place] [address]Dr. Farhat Leal [employer] Specimen Processing Tissue Grinding Normal [facility] Comment on above: Performed By: #### A FB ####[facility] [address] [place], [place] [address]YoSkylar Leal Sonya 01-20-2022 DIAMANTEN Telephone (KIMBERLY) ZORAALEX MUOÑZ ([id number]) 1945 M TRN Date Time Provider Department 01/20/22 VAN OLIVAREZ During your visit today, we recorded the following information about you: Van Olivarez APRN.DIAMANTE 01/20/2022 1:14 PM Signed Labs noted from yesterday. Pt is currently residing at [facility], I spoke with the Nurse, the results has been addressed by Physician caring for pt. He had been placed on Chlor Con and this has been discontinued and hyperkalemia has been treated. Van Olivarez APRN.PIPELINE INSPECTOR Allergies As of Date: 01/20/2022 Noted Allergy Reaction PYRIDOSTIGMINE BROMIDE 08/04/2021 8 - GI Upset Date Reviewed: 01/15/2022 Reviewed by: Raquel Tai APRN.PIPELINE INSPECTOR - Fully Assessed Reason for Visit: Results [...] by mouth daily with lunch. 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 Atherosclerosis of [place] artery of extremity w*11/29/2021 Malnutrition of moderate degree (HCC) [E44.0] 12/01/2021 Dermatitis associated with moisture [L30.8] 12/04/2021 Encounter Status:Closed by VAN OLIVAREZ on 01/20/22 Normal [facility] Orders Onlyon 01-20-2022 Orders Only [id number] Alex Almonte 1945 M Date Provider Department Center 01/20/2022 Francisco Javier-SUSIE HERNANDES [facility] No family history on file Normal [facility] PROF 14(COMP METB)on 022 Albumin [Mass/Vol] 1.9 g/dL Critically low 3.4-5.0 [facility] Comment on above: Performed By: #### C MP ####[facility] U[address]sp[address] [place] [address]Dr. Farhat Leal Albumin/Globulin [Mass ratio] 0.5 {ratio} Normal [facility] Comment on above: Performed By: #### C MP ####[facility] [address]qsvarnr[address] [place] [address]Dr. Farhat Leal ALP [Catalytic activity/Vol] 78 U/L Normal 46-116 [facility] Comment on above: Performed By: #### C MP ####[facility] Izfxvcnquq[address] [place], [place] [address]Dr. Farhat Leal ALT [Catalytic activity/Vol] 22 U/L Normal 16-63 [facility] Comment on above: Performed By: #### C MP ####[facility] Iqjkcrkihm[address] [place], [place] [address]Dr. Farhat Leal Anion gap [Moles/Vol] 8.0 mmol/L Normal [facility] Comment on above: Performed By: #### C MP ####[facility] Wvefuymkqk[address] [place], [place] [address]Dr. Farhat Leal AST [Catalytic activity/Vol] 92 U/L Critically high 15-37 [facility] Comment on above: Performed By: #### C MP ####[facility] Bplsrliiqz[address] [place], [place] [address]Dr. Farhat Leal Bilirubin [Mass/Vol] 0.7 mg/dL Normal 0.2-1.0 [facility] Comment on above: Performed By: #### C MP ####[facility] Jrvjfoonsy[address] [place], [place] [address]Dr. Farhat Leal Calcium [Mass/Vol] 7.8 mg/dL Critically low 8.5-10.1 [facility] Comment on above: Performed By: #### C MP ####[facility] Hhryamnywb[address] [place], [place] [address]Dr. Farhat Leal Chloride [Moles/Vol] 99 mmol/L Normal 98-107 [facility] Comment on above: Performed By: #### C MP ####[facility] [address]cqrusp[address] [place] [address]Dr. Farhat Leal CO2 [Moles/Vol] 30.9 mmol/L Normal 21.0-32.0 [facility] Comment on above: Performed By: #### C MP ####[facility] [address]poicbc[address] [place] [address]Dr. Farhat Leal Creatinine [Mass/Vol] 0.95 mg/dL Normal 0.70-1.30 [facility] Comment on above: Performed By: #### C MP ####[facility] Czjqjnjybg[address] [place], [place] [address]Dr. Farhat Leal EGFR-AF RUSSIAN >60 Normal >=60 [facility] Comment on above: Performed By: #### C MP ####[facility] Qzbmocibqv[address] [place], [place] [address]Dr. Farhat Leal EGFR-NON AF RUSSIAN >60 Normal >=60 [facility] Comment on above: Performed By: #### C MP ####[facility] Iqrwlonrvr[address] [place], [place] [address]Dr. Farhat Leal Globulin (S) [Mass/Vol] 3.9 g/dL Normal [facility] Comment on above: Performed By: #### C MP ####[facility] C[address]qiyteuae[address] [place], [place] [address]Dr. Farhat Leal Glucose [Mass/Vol] 124 mg/dL Critically high 74-106 [facility] Comment on above: Performed By: #### C MP ####[facility] Hcirvofioi[address] [place], [place] [address]Dr. Farhat Leal Potassium [Moles/Vol] 5.9 mmol/L Critically high 3.5-5.1 [facility] Comment on above: Performed By: #### C MP ####[facility] Hxyolwdxbu[address] [place], [place] [address]Dr. Farhat Leal Protein [Mass/Vol] 5.8 g/dL Critically low 6.4-8.2 Th e [facility] Comment on above: Performed By: #### C MP ####[facility] [address] [place] [phone]. Farhat Leal Sodium [Moles/Vol] 132 mmol/L Critically low 136-145 Th e [facility] Comment on above: Performed By: #### C MP ####[facility] U[address] [place] [phone]. Farhat Leal Urea nitrogen [Mass/Vol] 18.0 mg/dL Normal 7.0-18.0 [facility] Comment on above: Performed By: #### C MP ####[facility] Y[address]hqrjan[address] [place] [phone]. Farhat Leal Urea nitrogen/Creatinine [Mass ratio] 18.9 mg/mg Normal [facility] Comment on above: Performed By: #### C MP ####[facility] Fs[address]zzlfzi[address] [place] [phone]. Madelynlorri Leal INR (POC)on 01-12-2022 INR Coag (PPP) [Relative time] 2.6 {INR} High 0.8 - 1.2 [facility] Internal Quality Check Acceptable Cl [facility] ACID FAST SMEAR AND CXon Acid Fast Culture Negative Normal [facility] Comment on above: Result Comment: No a abdiel fast bacilli isolated after 6 weeks. Performed By: #### A FB ####[facility] Mifzylurha[address] [place], [place] [address]Dr. Farhat Leal Acid Fast Smear Negative Normal [facility] Comment on above: Performed By: #### A FB ####[facility] [address] [place], [place] [id number]. Madelynlorri [employer] Specimen Processing Direct Inoculation Normal [facility] Comment on above: Performed By: #### A FB ####[facility] [address]feykvi[address] [place] [phone]. Farhat Leal ACID FAST SMEAR AND CXon Acid Fast Culture Negative Normal [facility] Comment on above: Result Comment: No a abdiel fast bacilli isolated after 6 weeks. Performed By: #### A FB ####[facility] [address]bwlob[address] [place], [place] [address]Dr. Farhat Leal Acid Fast Smear Negative Normal [facility] Comment on above: Performed By: #### A FB ####[facility] [address]fs[address]wu[address] [place] [address]Dr. Farhat Leal [employer] Specimen Processing Tissue Grinding Normal [facility] Comment on above: Performed By: #### A FB ####[facility] O[address] [place] [address]Dr. Farhat Leal FUNGAL CULTUREon 01-02-2022 Fungus (Mycology) Culture Final report Normal [facility] Comment on above: Performed By: #### C XFUN ####[facility] U[address]txexgavm[address] [place], [place] [address]Dr. Farhat Leal Fungus Stain Final report Normal [facility] Comment on above: Performed By: #### C XFUN ####[facility] Kjcjfeotyn[address] [place], [place] [address]Dr. Farhat Leal Result 1 Comment Normal [facility] Comment on above: Result Comment: ANNI/ Calcofluor preparation: no fungus observed. Performed By: #### C XFUN ####[facility] Ffglrpnrno[address] [place], [place] [address]Dr. Farhat Leal Result Comment: No y east or mold isolated after 4 weeks. FK506 (TACROLIMUS) WHOLE BLO ODon 12-31-2021 Tacrolimus (FK506), Blood 7.7 ng/mL Normal 2.0-20.0 [facility] Comment on above: Result Comment: Trou gh (immediately following transplant) 15.0 . Trough (steady state, 2 weeks or more after transplant): 3.0 - 8.0 . Performed by LC-MS/MS technology. Performed By: #### F K506T ####[facility] Cgvalmavuo[address] [place], [place] [address]Dr. Farhat Leal HEMOGRAM AND PLATELon 2021 Hematocrit (Bld) [Volume fraction] 27.1 % Critically low 42.0-54.0 [facility] Comment on above: Performed By: #### H H ####[facility] Cyslpc[address]xhc[address] [place], [place] [address]Dr. Farhat Leal Hemoglobin (Bld) [Mass/Vol] 8.7 g/dL Critically low 14.0-18.0 [facility] Comment on above: Performed By: #### H H ####[facility] [address] [place] [address]DrSkylar Farhat Leal MCH (RBC) [Entitic mass] 30.3 pg Normal 25.9-34.0 [facility] Comment on above: Performed By: #### H H ####[facility] [address]qspwvf[address] [place] [address]DrSkylar Farhat Leal MCHC (RBC) [Mass/Vol] 32.1 g/dL Normal 29.9-35.2 [facility] Comment on above: Performed By: #### H H ####[facility] Xtgwbirvwn24[address] [place] [address]DrSkylar Farhat Leal MCV (RBC) [Entitic vol] 94.4 fL Critically high 80.0-94.0 [facility] Comment on above: Performed By: #### H H ####[facility] Knmnboxmar[address] [place], [place] [address]DrSkylar Farhat Leal PLT 355 103/ul Normal 150-450 [facility] Comment on above: Performed By: #### H H ####[facility] Wuikwdagjq[address] [place], [place] [address]DrSkylar Farhat Leal RBC 2.87 106/ul Critically low 4.70-6.10 [facility] Comment on above: Performed By: #### H H ####[facility] [address]kigxuxixl[address] [place] [address]DrSkylar Farhat Leal WBC 6.0 103/ul Normal 4.0-11.0 [facility] Comment on above: Performed By: #### H H ####[facility] [address]xhfymntuf[address] [place] [address]DrSkylar Farhat Elvis PHOSPHORUSon 12-29-2021 Phosphate [Mass/Vol] 2.5 mg/dL Critically low 2.6-4.7 [facility] Comment on above: Performed By: #### P HOS, CMP ####[facility] Ovbgebcuuo[address] [place], [place] [address]Dr. Farhat Leal PROF 14(COMP METB)on 022 Albumin [Mass/Vol] 1.7 g/dL Critically low 3.4-5.0 [facility] Comment on above: Performed By: #### P HOS, CMP ####[facility] X[address]qcllxsw[address] [place] [address]Dr. Farhat Leal Albumin/Globulin [Mass ratio] 0.5 {ratio} Normal [facility] Comment on above: Performed By: #### P HOS, CMP ####[facility] Zkobzorzxt[address] [place] [address]Dr. Farhat Leal ALP [Catalytic activity/Vol] 78 U/L Normal 46-116 [facility] Comment on above: Performed By: #### P HOS, CMP ####[facility] Hgddojzlmy[address] [place] [address]Dr. Farhat Leal ALT [Catalytic activity/Vol] 12 U/L Critically low 16-63 [facility] Comment on above: Performed By: #### P HOS, CMP ####[facility] Rtkmrrcynn[address] [place] [address]Dr. Farhat Leal Anion gap [Moles/Vol] 5.1 mmol/L Normal [facility] Comment on above: Performed By: #### P HOS, CMP ####[facility] Frxmhqeiwv65[address] [place] [address]Dr. Farhat Leal AST [Catalytic activity/Vol] 22 U/L Normal 15-37 [facility] Comment on above: Performed By: #### P HOS, CMP ####[facility] Ndfgmslvtc[address] [place] [address]Dr. Farhat Leal Bilirubin [Mass/Vol] 0.6 mg/dL Normal 0.2-1.0 [facility] Comment on above: Performed By: #### P HOS, CMP ####[facility] Fezeyignwo[address] [place] [address]Dr. Farhat Leal Calcium [Mass/Vol] 8.1 mg/dL Critically low 8.5-10.1 [facility] Comment on above: Performed By: #### P HOS, CMP ####[facility] Rmvimeaunl[address] [place] [address]Dr. Farhat Leal Chloride [Moles/Vol] 100 mmol/L Normal 98-107 [facility] Comment on above: Performed By: #### P HOS, CMP ####[facility] Efckrcuush7[address] [place] [address]Dr. Farhat Leal CO2 [Moles/Vol] 34.2 mmol/L Critically high 21.0-32.0 [facility] Comment on above: Performed By: #### P HOS, CMP ####[facility] N[address]qhebtul[address] [place], [place] [address]Dr. Farhat Leal Creatinine [Mass/Vol] 0.92 mg/dL Normal 0.70-1.30 [facility] Comment on above: Performed By: #### P HOS, CMP ####[facility] Btlcddrgpu[address] [place], [place] [address]Dr. Farhat Leal EGFR-AF RUSSIAN >60 Normal >=60 [facility] Comment on above: Performed By: #### P HOS, CMP ####[facility] Dmwsflbqmn[address] [place], [place] [address]Dr. Farhat Leal EGFR-NON AF RUSSIAN >60 Normal >=60 [facility] Comment on above: Performed By: #### P HOS, CMP ####[facility] Dynqwpyide[address] [place], [place] [address]Dr. Farhat Leal Globulin (S) [Mass/Vol] 3.3 g/dL Normal [facility] Comment on above: Performed By: #### P HOS, CMP ####[facility] Ugdodlxgxo[address] [place], [place] [address]Dr. Farhat Leal Glucose [Mass/Vol] 116 mg/dL Critically high 74-106 [facility] Comment on above: Performed By: #### P HOS, CMP ####[facility] Eovngemdqh[address] [place], [place] [address]Dr. Farhat Leal Potassium [Moles/Vol] 3.3 mmol/L Critically low 3.5-5.1 [facility] Comment on above: Performed By: #### P HOS, CMP ####[facility] Lsyvnqqzsy4[address] [place] [address]Dr. Farhat Leal Protein [Mass/Vol] 5.0 g/dL Critically low 6.4-8.2 Th e [facility] Comment on above: Performed By: #### P HOS, CMP ####[facility] Rjyakxcqct36[address] [place] [address]Dr. Farhat Leal Sodium [Moles/Vol] 136 mmol/L Normal 136-145 [facility] Comment on above: Performed By: #### P HOS, CMP ####[facility] Edagkpytbw[address] [place] [address]Dr. Farhat Leal Urea nitrogen [Mass/Vol] 14.0 mg/dL Normal 7.0-18.0 [facility] Comment on above: Performed By: #### P HOS, CMP ####[facility] Zephjflzdw[address] [place], [place] [address]Dr. Farhat Leal Urea nitrogen/Creatinine [Mass ratio] 15.2 mg/mg Normal [facility] Comment on above: Performed By: #### P HOS, CMP ####[facility] Cjcjhhbsiu209[address] [place], [place] [address]Dr. Farhat Leal PROTIMEon 12-29-2021 INR Coag (PPP) [Relative time] 1.26 {INR} Normal [facility] Comment on above: Performed By: #### P T ####[facility] Jtvegalzwd[address] [place], [place] [address]Dr. Farhat Leal INR GUIDELINES SEE BELOW Normal [facility] Comment on above: Result Comment: MALINA RED INR: 2.0 - 3.0 CONDITIONS NOT LISTED BELOW 2.5 - 3.5 FOR PROSTHETIC HEART VALVE REPLACEMENT 2.5 - 3.5 RECURRENT THROMBOSIS Performed By: #### P T ####[facility] Jrimzuamxk[address] [place], [place] [address]Dr. Farhat Leal PT Coag (PPP) [Time] 13.4 s Critically high 9.0-11.6 [facility] Comment on above: Performed By: #### P T ####[facility] [address]jmdvl[address] [place] [address]Dr. Farhat Leal XR MODIFIED BARIUM SWALLOWon 12-25-2021 XR MODIFIED BARIUM SWALLOW Normal [facility] FUNGAL CULTUREon 12-24-2021 Fungus (Mycology) Culture Final report Normal [facility] Comment on above: Performed By: #### C XFUN ####[facility] [address]qsfbworl[address] [place], [place] [address]Dr. Farhat Leal Fungus Stain Final report Normal [facility] Comment on above: Performed By: #### C XFUN ####[facility] Htrkiocuvq[address] [place], [place] [address]Dr. Farhat Leal Result 1 Comment Normal [facility] Comment on above: Result Comment: ANNI/ Calcofluor preparation: no fungus observed. Performed By: #### C XFUN ####[facility] S[address]ktgswxw[address] [place], [place] [address]Dr. Farhat Leal Result Comment: No y east or mold isolated after 4 weeks. VANCOMYCIN TROUGHon 12-21-19 VANCOMYCIN TROUGH 14.4 ug/ml Normal 5.0-20.0 [facility] Comment on above: Performed By: #### V ANCT ####[facility] Kznxvccstk[address] [place], [place] [address]Dr. Farhat Leal CBC AUTO DIFFon 12-14-2021 BASO # 0.0 103/ul Normal 0.0-0.1 [facility] Comment on above: Performed By: #### C BC ####[facility] [address]ozbzgrbq[address] [place], [place] [address]Dr. Farhat Leal Basophils/100 WBC (Bld) 0.2 % Normal 0.2-2.0 [facility] Comment on above: Performed By: #### C BC ####[facility] [address]larblsu[address] [place], [place] [address]Dr. Farhat Leal EO # 0.2 103/ul Normal 0.0-0.7 [facility] Comment on above: Performed By: #### C BC ####[facility] [address]brjrecd[address] [place], [place] [address]Dr. Farhat Leal Eosinophils/100 WBC (Bld) 2.1 % Normal 0.9-7.0 [facility] Comment on above: Performed By: #### C BC ####[facility] [address] [place] [address]Dr. Farhat Leal Erythrocyte distribution width (RBC) [Ratio] 18.2 % Critically high 11.0-15.0 [facility] Comment on above: Performed By: #### C BC ####[facility] [address]xqcfpb[address] [place], [place] [address]DrSkylar Lela Hematocrit (Bld) [Volume fraction] 25.8 % Critically low 42.0-54.0 [facility] Comment on above: Performed By: #### C BC ####[facility] Ivhkxlyaol[address] [place], [place] [address]DrSkylar Leal Hemoglobin (Bld) [Mass/Vol] 8.0 g/dL Critically low 14.0-18.0 [facility] Comment on above: Performed By: #### C BC ####[facility] Asoxheshxl[address] [place], [place] [address]DrSkylar Leal IG # 0.08 10e3/ul Critically high 0.00-0.03 [facility] Comment on above: Performed By: #### C BC ####[facility] Vyfdcigiwl[address] [place], [place] [address]DrSkylar Leal IG % 0.7 % Critically high 0.0-0.5 [facility] Comment on above: Performed By: #### C BC ####[facility] Qrxrtdhqyr[address] [place], [place] [address]DrSkylar Leal LYMPH # 0.9 103/ul Critically low 1.2-3.8 [facility] Comment on above: Performed By: #### C BC ####[facility] Pcivkhkydi025[address] [place], [place] [address]DrSkylar Leal Lymphocytes/100 WBC (Bld) 8.7 % Critically low 20.5-60.0 [facility] Comment on above: Performed By: #### C BC ####[facility] Qfbibzbttu[address] [place], [place] [address]DrSkylar Leal MANUAL DIFF REQ NO Normal [facility] Comment on above: Performed By: #### C BC ####[facility] [address]oojgpvmas[address] [place] [id number] Leal MCH (RBC) [Entitic mass] 30.0 pg Normal 25.9-34.0 [facility] Comment on above: Performed By: #### C BC ####[facility] G[address]xwrqtxp94[address] [place] [address]DrSkylar Leal MCHC (RBC) [Mass/Vol] 31.0 g/dL Normal 29.9-35.2 [facility] Comment on above: Performed By: #### C BC ####[facility] Qtmzlaxbjc7[address] [place], [place] [address]DrSkylar Leal MCV (RBC) [Entitic vol] 96.6 fL Critically high 80.0-94.0 [facility] Comment on above: Performed By: #### C BC ####[facility] Ijzqywkowj9[address] [place], [place] [address]DrSkylar Leal MONO # 0.7 103/ul Normal 0.3-0.8 [facility] Comment on above: Performed By: #### C BC ####[facility] Igglugyxkq590[address] [place], [place] [address]DrSkylar Leal Monocytes/100 WBC (Bld) 6.7 % Normal 1.7-12.0 [facility] Comment on above: Performed By: #### C BC ####[facility] Oqblpfcxyi[address] [place], [place] [address]DrSkylar Leal NEUT # 8.8 103/ul Critically high 1.4-6.5 [facility] Comment on above: Performed By: #### C BC ####[facility] Kwxturjmbv924[address] [place], [place] [address]DrSkylar Leal Neutrophils/100 WBC (Bld) 81.6 % Critically high 43.0-75.0 [facility] Comment on above: Performed By: #### C BC ####[facility] Kvsukubmmk[address] [place], [place] [address]DrSkylar Leal Platelet mean volume (Bld) [Entitic vol] 10.5 fL Normal 9.5-13.5 [facility] Comment on above: Performed By: #### C BC ####[facility] Izcnouzwui[address] [place] [address]Dr. Farhat Leal PLT 285 103/ul Normal 150-450 [facility] Comment on above: Performed By: #### C BC ####[facility] Tpwgovgyyy1654 [place] [address]Dr. Farhat Leal RBC 2.67 106/ul Critically low 4.70-6.10 [facility] Comment on above: Performed By: #### C BC ####[facility] Ylldnfcvlw54[address] [place] [address]Dr. Farhat Leal WBC 10.7 103/ul Normal 4.0-11.0 [facility] Comment on above: Performed By: #### C BC ####[facility] Undlepeshg[address] [place], [place] [address]DrSkylar Leal PROF CHEM 8 (BAS METB)on Anion gap [Moles/Vol] 12.4 mmol/L Normal [facility] Comment on above: Performed By: #### B MP ####[facility] Ivgxnnefmd9[address] [place], [place] [address]Dr. Farhat Leal Calcium [Mass/Vol] 7.8 mg/dL Critically low 8.5-10.[address] [facility] Comment on above: Performed By: #### B MP ####[facility] Ijfrqfvzbi032[address] [place], [place] [address]Dr. Farhat Leal Chloride [Moles/Vol] 102 mmol/L Normal 98-107 [facility] Comment on above: Performed By: #### B MP ####[facility] Oyeoeujhto7[address] [place], [place] [address]DrSkylar Leal CO2 [Moles/Vol] 28.1 mmol/L Normal 21.0-32.0 [facility] Comment on above: Performed By: #### B MP ####[facility] Wxxftafdro294[address] [place], [place] [address]Dr. Farhat Leal Creatinine [Mass/Vol] 1.24 mg/dL Normal 0.70-1.30 [facility] Comment on above: Performed By: #### B MP ####[facility] Ebqidvtbov[address] [place] [address]Dr. Farhat Leal EGFR-AF RUSSIAN >60 Normal >=60 [facility] Comment on above: Performed By: #### B MP ####[facility] Ktzauroaat907[address] [place], [place] [address]Dr. Farhat Leal EGFR-NON AF RUSSIAN 57 mL/min/1.73m2 Critically low >=60 [facility] Comment on above: Performed By: #### B MP ####[facility] Dumzofstvc90[address] [place], [place] [address]Dr. Farhat Leal Glucose [Mass/Vol] 296 mg/dL Critically high 74-106 [facility] Comment on above: Performed By: #### B MP ####[facility] Tqjcrtceqi[address] [place], [place] [address]Dr. Farhat Leal Potassium [Moles/Vol] 3.5 mmol/L Normal 3.5-5.1 [facility] Comment on above: Performed By: #### B MP ####[facility] Tjoqyryvaq[address] [place], [place] [address]Dr. Farhat Leal Sodium [Moles/Vol] 139 mmol/L Normal 136-145 [facility] Comment on above: Performed By: #### B MP ####[facility] Jnmchasqgt279[address] [place], [place] [address]Dr. Farhat Leal Urea nitrogen [Mass/Vol] 27.0 mg/dL Critically high 7.0-18.0 [facility] Comment on above: Performed By: #### B MP ####[facility] Etcmkyhdmj992[address] [place], [place] [address]Dr. Farhat Leal Urea nitrogen/Creatinine [Mass ratio] 21.8 mg/mg Normal [facility] Comment on above: Performed By: #### B MP ####[facility] Pmnzpldngx[address] [place], [place] [address]DrSkylar Leal PROTIMEon 10-30-2022 INR Coag (PPP) [Relative time] 3.36 {INR} Normal [facility] Comment on above: Performed By: #### P T ####[facility] Hx[address]ffnyuon[address] [place], [place] [address]XnSkylar Leal INR GUIDELINES SEE BELOW Normal [facility] Comment on above: Result Comment: MALINA RED INR: 2.0 - 3.0 CONDITIONS NOT LISTED BELOW 2.5 - 3.5 FOR PROSTHETIC HEART VALVE REPLACEMENT 2.5 - 3.5 RECURRENT THROMBOSIS Performed By: #### P T ####[facility] [address]zc20[address] [place], [place] [address]CgSkylar Leal PT Coag (PPP) [Time] 33.5 s Critically high 9.0-11.6 [facility] Comment on above: Performed By: #### P T ####[facility] [address]vlk[address]vdds[address] [place] [address]DrSkylar Leal XR CHEST 1 Von 12-14-2021 XR CHEST 1 V Normal [facility] No Panel Informationon 12-01 BLANK _ [facility] Implant Date 04/22/2012 [facility] CHECKon AMS Duration (ms) 5 of 8 [place] AMS Fallback Rate (bpm) DDIR [facility] AV Delay Adaptive Paced Minimum (ms) 300 ms [facility] AV Delay Adaptive Rate Maximum (bpm) 130 {beats}/min [facility] AV Delay Adaptive Rate Minimum (bpm) 70 {beats}/min [facility] AV Delay Adaptive Sensed Minimum (ms) 300 ms [facility] AV Delay Paced (ms) 300 ms [facility] AV Delay Sensed (ms) 300 ms [facility] Jaciel LV Pacing Polarity Unknown [facility] Jaciel LV Sensing Polarity Unknown [facility] Jaciel RA Pacing Amplitude (volts) 2.4 V [facility] Jaciel RA Pacing Polarity BI [facility] Jaciel RA Pacing Pulse Width (ms) 0.4 ms [facility] Jaciel RA Sensing Amplitude (mvolts) AUTO [facility] Jaciel RA Sensing Blanking Period (ms) 56 ms [facility] Jaciel RA Sensing Polarity BI [facility] Jaciel RA Sensing Refractory Period (ms) AUTO [facility] Jaciel RV Pacing Amplitude (volts) 3.4 V [facility] Jaciel RV Pacing Polarity BI [facility] Jaciel RV Pacing Pulse Width (ms) 0.4 ms [facility] Jaciel RV Sensing Amplitude (mvolts) AUTO [facility] Jaciel RV Sensing Blanking Period (ms) 30 ms [facility] Jaciel RV Sensing Polarity BI [facility] Jaciel RV Sensing Refractory Period (ms) 250 ms [facility] Hysteresis Rate (bpm) 60 {beats}/min [facility] Lead1 Mfg SUZETTE [facility] Lead2 Mfg SUZETTE [facility] Location RA [facility] Location RV [facility] Lower Rate (bpm) 60 {beats}/min [facility] Max Sensor Rate (bmp) 130 {beats}/min [facility] Model 492994 Monika CORTEZ [facility] Model [id number] [facility] Model [id number] [facility] Pacemaker Dependent? NO [facility] PM-Device Mfg BIO [facility] PM-PMT Intervention ON [facility] PM-PVC Intervention ON [facility] PM-Rate Modulation Acceleration Reaction 4 s [facility] PM-Rate Modulation Deceleration 0.5 m [facility] PM-Rate Modulation Clinch 23 [facility] PM-Rate Modulation Threshold Medium [facility] RA Bipolar Impedance ohms 448 ohm [facility] Rhythm AF with controlled ventricular rate. [facility] RV Bipolar Impedance ohms 390 ohm [facility] Serial Number [id number] [facility] Serial Number [id number] [facility] Serial Number [id number] [facility] Thresh RA Sensing Amplitude (mvolts) 2.4 mV [facility] Thresh RV Capture Amplitude (volts) 1.8 V [facility] Thresh RV Capture Duration (ms) 0.4 ms [facility] Thresh RV Sensing Amplitude (mvolts) 2.4 mV [facility] Tracking Rate (bpm) 160 {beats}/min [facility] BNPon 11-28-2021 Natriuretic peptide B (Bld) [Mass/Vol] 24784.0 pg/mL Critically high <=1,800.0 [facility] Comment on above: Performed By: #### C MP, BNP, CRP ####[facility] [address]tzt[address]rokw[address] [place] [address]Dr. Farhat Leal CBC AUTO DIFFon 11-28-2021 BASO # 0.0 103/ul Normal 0.0-0.1 [facility] Comment on above: Performed By: #### C BC ####[facility] E[address]xzzcg[address] [place] [address]Dr. Farhat Leal Basophils/100 WBC (Bld) 0.3 % Normal 0.2-2.0 [facility] Comment on above: Performed By: #### C BC ####[facility] Sldkmsbvcd3405 [place] [address]Dr. Farhat Leal EO # 0.1 103/ul Normal 0.0-0.7 [facility] Comment on above: Performed By: #### C BC ####[facility] Zsglsqlxkr7[address] [place], [place] [address]Dr. Farhat Leal Eosinophils/100 WBC (Bld) 1.0 % Normal 0.9-7.0 [facility] Comment on above: Performed By: #### C BC ####[facility] Nbjjgnaotm[address] [place], [place] [address]Dr. Farhat Leal Erythrocyte distribution width (RBC) [Ratio] 14.0 % Normal 11.0-15.0 [facility] Comment on above: Performed By: #### C BC ####[facility] Pbqxapbqhe288[address] [place], [place] [address]Dr. Farhat Leal Hematocrit (Bld) [Volume fraction] 27.6 % Critically low 42.0-54.0 [facility] Comment on above: Performed By: #### C BC ####[facility] Qgjnhoxonz365[address] [place], [place] [address]Dr. Farhat Leal Hemoglobin (Bld) [Mass/Vol] 9.0 g/dL Critically low 14.0-18.0 [facility] Comment on above: Performed By: #### C BC ####[facility] Wqmqivfllj740[address] [place], [place] [address]Dr. Farhat Leal IG # 0.12 10e3/ul Critically high 0.00-0.03 [facility] Comment on above: Performed By: #### C BC ####[facility] Gywjosjujb825[address] [place], [place] [address]Dr. Frahat Leal IG % 1.0 % Critically high 0.0-0.5 [facility] Comment on above: Performed By: #### C BC ####[facility] Jeb[address]kwzwc[address] [place] [address]Dr. Farhat Leal LYMPH # 1.2 103/ul Normal 1.2-3.8 [facility] Comment on above: Performed By: #### C BC ####[facility] Brnpsgjbld05[address] [place] [address]Dr. Farhat Leal Lymphocytes/100 WBC (Bld) 9.9 % Critically low 20.5-60.0 [facility] Comment on above: Performed By: #### C BC ####[facility] Fhpafylshh[address] [place], [place] [address]Dr. Farhat Leal MANUAL DIFF REQ NO Normal [facility] Comment on above: Performed By: #### C BC ####[facility] Oxctgldlzi430[address] [place], [place] [address]Dr. Farhat Leal MCH (RBC) [Entitic mass] 30.0 pg Normal 25.9-34.0 [facility] Comment on above: Performed By: #### C BC ####[facility] Plakkwgfrx[address] [place], [place] [address]Dr. Farhat Leal MCHC (RBC) [Mass/Vol] 32.6 g/dL Normal 29.9-35.2 [facility] Comment on above: Performed By: #### C BC ####[facility] Nionavlztx[address] [place], [place] [address]Dr. Farhat Leal MCV (RBC) [Entitic vol] 92.0 fL Normal 80.0-94.0 [facility] Comment on above: Performed By: #### C BC ####[facility] Pyepquegtr119[address] [place], [place] [address]Dr. Farhat Leal MONO # 1.1 103/ul Critically high 0.3-0.8 [facility] Comment on above: Performed By: #### C BC ####[facility] Itweowpllt08[address] [place], [place] [address]Dr. Farhat Leal Monocytes/100 WBC (Bld) 9.3 % Normal 1.7-12.0 [facility] Comment on above: Performed By: #### C BC ####[facility] Jwoadihbwj[address] [place] [address]Dr. Farhat Leal NEUT # 9.3 103/ul Critically high 1.4-6.5 [facility] Comment on above: Performed By: #### C BC ####[facility] Yqhtqbwktj[address] [place] [address]Dr. Farhat Leal Neutrophils/100 WBC (Bld) 78.5 % Critically high 43.0-75.0 [facility] Comment on above: Performed By: #### C BC ####[facility] Qwwcwsctqd9915 [place] [address]Dr. Farhat Leal Platelet mean volume (Bld) [Entitic vol] 9.6 fL Normal 9.5-13.5 [facility] Comment on above: Performed By: #### C BC ####[facility] Sfijyygchm39[address] [place], [place] [address]Dr. Farhat Leal PLT 357 103/ul Normal 150-450 [facility] Comment on above: Performed By: #### C BC ####[facility] Bcoeqlsido[address] [place], [place] [address]Dr. Farhat Leal RBC 3.00 106/ul Critically low 4.70-6.10 [facility] Comment on above: Performed By: #### C BC ####[facility] [address]qp[address] [place] [id number]. Farhat Leal WBC 11.8 103/ul Critically high 4.0-11.0 [facility] Comment on above: Performed By: #### C BC ####[facility] [address]newl[address] [place] [id number]. Farhat Elvis CRPon 11-28-2021 CRP 20.9 mg/dL Critically high <=1.0 [facility] Comment on above: Performed By: #### C MP, BNP, CRP ####[facility] Nbutghiaip[address] [place] [id number]. Farhat Elvis CULTURE OTHERon 11-28-2021 CULTURE OTHER Normal [facility] Comment on above: Performed By: #### O THCX ####[facility] Ljpf[address]jfyq[address] [place] [address]Dr. Farhat Leal CULTURE OTHER Normal [facility] Comment on above: Performed By: #### O THCX ####[facility] Vnasdhpida[address] [place] [address]Dr. Farhat Leal PROF 14(COMP METB)on 022 Albumin [Mass/Vol] 1.4 g/dL Critically low 3.4-5.0 [facility] Comment on above: Performed By: #### C MP, BNP, CRP ####[facility] Fjzwsqhynh4[address] [place] [address]Dr. Farhat Leal Albumin/Globulin [Mass ratio] 0.4 {ratio} [facility] Comment on above: Performed By: #### C MP, BNP, CRP ####[facility] Ymufsqvotv[address] [place], [place] [address]Dr. Farhat Leal ALP [Catalytic activity/Vol] 82 U/L Normal 46-116 [facility] Comment on above: Performed By: #### C MP, BNP, CRP ####[facility] Ezeedrjugt958[address] [place], [place] [address]Dr. Farhat Leal ALT [Catalytic activity/Vol] 20 U/L Normal 16-63 [facility] Comment on above: Performed By: #### C MP, BNP, CRP ####[facility] Hhlwgkcbok[address] [place] [address]Dr. Farhat Leal Anion gap [Moles/Vol] 13.0 mmol/L Normal Th [facility] Comment on above: Performed By: #### C MP, BNP, CRP ####[facility] Pspouuynsi[address] [place] [address]Dr. Farhat Leal AST [Catalytic activity/Vol] 33 U/L Normal 15-37 [facility] Comment on above: Performed By: #### C MP, BNP, CRP ####[facility] Bxrbikthqo58[address] [place] [address]Dr. Farhat Leal Bilirubin [Mass/Vol] 0.7 mg/dL Normal 0.2-1.0 [facility] Comment on above: Performed By: #### C MP, BNP, CRP ####[facility] Wrdtuwnduy84[address] [place] [address]Dr. Farhat Leal Calcium [Mass/Vol] 8.4 mg/dL Critically low 8.5-10.1 Th e [facility] Comment on above: Performed By: #### C MP, BNP, CRP ####[facility] Ludhosdlcq[address] [place], [place] [address]Dr. Farhat Leal Chloride [Moles/Vol] 100 mmol/L Normal 98-107 [facility] Comment on above: Performed By: #### C MP, BNP, CRP ####[facility] Oxfobjaqgc205[address] [place], [place] [address]Dr. Farhat Leal CO2 [Moles/Vol] 23.7 mmol/L Normal 21.0-32.0 [facility] Comment on above: Performed By: #### C MP, BNP, CRP ####[facility] Kxvxxhyesc[address] [place], [place] [address]Dr. Farhat Leal Creatinine [Mass/Vol] 1.70 mg/dL Critically high 0.70-1.30 [facility] Comment on above: Performed By: #### C MP, BNP, CRP ####[facility] [address]oucqdvxzj[address] [place], [place] [address]Dr. Farhat Leal EGFR-AF RUSSIAN 48 mL/min/1.73m2 Critically low >=60 [facility] Comment on above: Performed By: #### C MP, BNP, CRP ####[facility] Arspoqusrt699[address] [place], [place] [address]Dr. Farhat Leal EGFR-NON AF RUSSIAN 39 mL/min/1.73m2 Critically low >=60 [facility] Comment on above: Performed By: #### C MP, BNP, CRP ####[facility] Cagwlsjxcl[address] [place], [place] [address]Dr. Farhat Leal Globulin (S) [Mass/Vol] 3.6 g/dL Normal [facility] Comment on above: Performed By: #### C MP, BNP, CRP ####[facility] Kjeucdbmrl5140 [place] [address]Dr. Farhat Leal Glucose [Mass/Vol] 232 mg/dL Critically high 74-106 [facility] Comment on above: Performed By: #### C MP, BNP, CRP ####[facility] Zphczmdoyf033[address] [place] [address]Dr. Farhat Leal Potassium [Moles/Vol] 3.7 mmol/L Normal 3.5-5.1 [facility] Comment on above: Performed By: #### C MP, BNP, CRP ####[facility] Rllwvaleih[address] [place], [place] [address]Dr. Farhat Leal Protein [Mass/Vol] 5.0 g/dL Critically low 6.4-8.2 Th [facility] Comment on above: Performed By: #### C MP, BNP, CRP ####[facility] Xnwnolmvys003[address] [place], [place] [address]Dr. Farhat Leal Sodium [Moles/Vol] 133 mmol/L Critically low 136-145 Th [facility] Comment on above: Performed By: #### C MP, BNP, CRP ####[facility] Uttsxeesyi988[address] [place], [place] [address]Dr. Farhat Leal Urea nitrogen [Mass/Vol] 52.0 mg/dL Critically high 7.0-18.0 [facility] Comment on above: Performed By: #### C MP, BNP, CRP ####[facility] Zkynqrtzdw095[address] [place], [place] [address]Dr. Farhat Leal Urea nitrogen/Creatinine [Mass ratio] 30.6 mg/mg Normal [facility] Comment on above: Performed By: #### C MP, BNP, CRP ####[facility] Yjxllnxkzm7[address] [place], [place] [address]Dr. Farhat Leal PROTIMEon 11-28-2021 INR Coag (PPP) [Relative time] 1.29 {INR} Normal [facility] Comment on above: Performed By: #### P T ####[facility] Pepnsphxum9[address] [place], [place] [address]Dr. Farhat Leal INR GUIDELINES SEE BELOW Normal [facility] Comment on above: Result Comment: MALINA RED INR: 2.0 - 3.0 CONDITIONS NOT LISTED BELOW 2.5 - 3.5 FOR PROSTHETIC HEART VALVE REPLACEMENT 2.5 - 3.5 RECURRENT THROMBOSIS Performed By: #### P T ####[facility] Vgcginvlyk232[address] [place] [address]Dr. Farhat Leal PT Coag (PPP) [Time] 13.7 s Critically high 9.0-11.6 [facility] Comment on above: Performed By: #### P T ####[facility] Vdycgpupoa[address] [place], [place] [address]Dr. Farhat Leal SED RATE WESTERGREN 2021 SED RATE 77 mm/hr Critically high <=20 [facility] Comment on above: Performed By: #### S EDR ####[facility] Yzqedvbvah[address] [place], [place] [address]Dr. Farhat Leal XR CHEST 2 Von 11-28-2021 XR CHEST 2 V Normal [facility] BNPon 11-27-2021 Natriuretic peptide B (Bld) [Mass/Vol] 39671.0 pg/mL Critically high <=1,800.0 [facility] Comment on above: Performed By: #### B SWITCHBOARD MECHANIC, CMP, CRP ####[facility] Hxlgozfomy[address] [place], [place] [address]Dr. Farhat Leal CBC AUTO DIFFon 11-27-2021 BASO # 0.0 103/ul Normal 0.0-0.1 [facility] Comment on above: Performed By: #### C BC ####[facility] Siwlhooprj[address] [place], [place] [address]Dr. Farhat Leal Basophils/100 WBC (Bld) 0.2 % Normal 0.2-2.0 [facility] Comment on above: Performed By: #### C BC ####[facility] Vyturygwhq[address] [place], [place] [address]Dr. Farhat Leal EO # 0.2 103/ul Normal 0.0-0.7 [facility] Comment on above: Performed By: #### C BC ####[facility] [address]cpoh[address] [place] [id number]. Farhat Leal Eosinophils/100 WBC (Bld) 1.9 % Normal 0.9-7.0 [facility] Comment on above: Performed By: #### C BC ####[facility] Lxjufxmucy27[address] [place] [id number]. Farhat Leal Erythrocyte distribution width (RBC) [Ratio] 13.9 % Normal 11.0-15.0 [facility] Comment on above: Performed By: #### C BC ####[facility] Ulrlhtuiof[address] [place] [address]Dr. Farhat Leal Hematocrit (Bld) [Volume fraction] 28.7 % Critically low 42.0-54.0 [facility] Comment on above: Performed By: #### C BC ####[facility] Qycycwguli[address] [place], [place] [address]Dr. Farhat Leal Hemoglobin (Bld) [Mass/Vol] 9.3 g/dL Critically low 14.0-18.0 [facility] Comment on above: Performed By: #### C BC ####[facility] Mwwowouaga[address] [place], [place] [address]Dr. Farhat Leal IG # 0.14 10e3/ul Critically high 0.00-0.03 [facility] Comment on above: Performed By: #### C BC ####[facility] Drpdmqssyi307[address] [place], [place] [address]Dr. Farhat Leal IG % 1.2 % Critically high 0.0-0.5 [facility] Comment on above: Performed By: #### C BC ####[facility] Epdcnviavv[address] [place], [place] [address]Dr. Farhat Leal LYMPH # 1.1 103/ul Critically low 1.2-3.8 [facility] Comment on above: Performed By: #### C BC ####[facility] [address]xygjlec[address] [place], [place] [address]Dr. Farhat Leal Lymphocytes/100 WBC (Bld) 9.4 % Critically low 20.5-60.0 [facility] Comment on above: Performed By: #### C BC ####[facility] Fdcxtqmhsf8[address] [place] [id number]. Farhat Leal MANUAL DIFF REQ NO Normal [facility] Comment on above: Performed By: #### C BC ####[facility] [address] [place] [id number]. Farhat Leal MCH (RBC) [Entitic mass] 29.7 pg Normal 25.9-34.0 [facility] Comment on above: Performed By: #### C BC ####[facility] Dwiavoddor68[address] [place] [id number]. Farhta Leal MCHC (RBC) [Mass/Vol] 32.4 g/dL Normal 29.9-35.2 [facility] Comment on above: Performed By: #### C BC ####[facility] [address]zfxmthm[address] [place], [place] [address]Dr. Farhat Leal MCV (RBC) [Entitic vol] 91.7 fL Normal 80.0-94.0 [facility] Comment on above: Performed By: #### C BC ####[facility] Ajfirkylfg[address] [place], [place] [address]Dr. Farhat Leal MONO # 1.1 103/ul Critically high 0.3-0.8 [facility] Comment on above: Performed By: #### C BC ####[facility] Myngeohcbt[address] [place], [place] [address]Dr. Farhat Leal Monocytes/100 WBC (Bld) 9.7 % Normal 1.7-12.0 [facility] Comment on above: Performed By: #### C BC ####[facility] [address] [place], [place] [id number] Leal NEUT # 9.2 103/ul Critically high 1.4-6.5 [facility] Comment on above: Performed By: #### C BC ####[facility] I[address]qv[address] [place], [place] [id number] Leal Neutrophils/100 WBC (Bld) 77.6 % Critically high 43.0-75.0 [facility] Comment on above: Performed By: #### C BC ####[facility] Uzstsskrux[address] [place] [phone]. Farhat Leal Platelet mean volume (Bld) [Entitic vol] 9.5 fL Normal 9.5-13.5 [facility] Comment on above: Performed By: #### C BC ####[facility] Seosyrieth[address] [place] [id number]. Farhat Leal PLT 375 103/ul Normal 150-450 [facility] Comment on above: Performed By: #### C BC ####[facility] Ickdawbrbd[address]2 [place] [id number]. Farhat Leal RBC 3.13 106/ul Critically low 4.70-6.10 [facility] Comment on above: Performed By: #### C BC ####[facility] Ultdtkaaev[address] [place] [phone]. Farhat Leal WBC 11.8 103/ul Critically high 4.0-11.0 [facility] Comment on above: Performed By: #### C BC ####[facility] Rldddkkecw3871 [place] [id number]. Farhat Leal CRPon 11-27-2021 CRP 24.5 mg/dL Critically high <=1.0 [facility] Comment on above: Performed By: #### B SWITCHBOARD MECHANIC, CMP, CRP ####[facility] Yvfldkegnt24[address] [place] [phone]. Farhat Leal CULTURE OTHERon 11-27-2021 CULTURE OTHER Normal [facility] Comment on above: Performed By: #### O THCX ####[facility] Mohahgzhrf[address] [place] [phone]. Farhat Leal CULTURE OTHER Normal [facility] Comment on above: Performed By: #### O THCX ####[facility] Tkmhvuzojr[address] [place] [phone]. Farhat Leal CULTURE WOUNDon 11-27-2021 CULTURE WOUND Normal [facility] Comment on above: Performed By: #### W OUNDCX ####[facility] Abqibelptz[address] [place] [address]Dr. Farhat Leal POINT OF CARE GLUCOSEon 11-15 Glucose [Mass/Vol] 147 mg/dL Critically high 74-106 [facility] Comment on above: Performed By: #### P OCGLUC ####[facility] Wpvwkqweou[address] [place] [address]Dr. Farhat Leal PROF 14(COMP METB)on 022 Albumin [Mass/Vol] 1.4 g/dL Critically low 3.4-5.0 [facility] Comment on above: Performed By: #### B SWITCHBOARD MECHANIC, CMP, CRP ####[facility] Aznrhyznca25[address] [place] [address]Dr. Farhat Leal Albumin/Globulin [Mass ratio] 0.4 {ratio} Normal [facility] Comment on above: Performed By: #### B SWITCHBOARD MECHANIC, CMP, CRP ####[facility] Qolqrrdrxn[address] [place], [place] [address]Dr. Farhat Leal ALP [Catalytic activity/Vol] 82 U/L Normal 46-116 [facility] Comment on above: Performed By: #### B SWITCHBOARD MECHANIC, CMP, CRP ####[facility] Ksqfphmnfh[address] [place], [place] [address]Dr. Farhat Leal ALT [Catalytic activity/Vol] 22 U/L Normal 16-63 [facility] Comment on above: Performed By: #### B SWITCHBOARD MECHANIC, CMP, CRP ####[facility] Eicdrisouh[address] [place] [address]Dr. Farhat Leal Anion gap [Moles/Vol] 14.2 mmol/L Normal [facility] Comment on above: Performed By: #### B SWITCHBOARD MECHANIC, CMP, CRP ####[facility] Viqmejuxwt5[address] [place] [address]Dr. Farhat Leal AST [Catalytic activity/Vol] 35 U/L Normal 15-37 [facility] Comment on above: Performed By: #### B SWITCHBOARD MECHANIC, CMP, CRP ####[facility] Otgjvjktwm[address] [place], [place] [address]Dr. Farhat Leal Bilirubin [Mass/Vol] 0.7 mg/dL Normal 0.2-1.0 [facility] Comment on above: Performed By: #### B SWITCHBOARD MECHANIC, CMP, CRP ####[facility] Augoikztju[address] [place] [address]Dr. Farhat Leal Calcium [Mass/Vol] 8.2 mg/dL Critically low 8.5-10.1 Th [facility] Comment on above: Performed By: #### B SWITCHBOARD MECHANIC, CMP, CRP ####[facility] Pmcmwcbqnb[address] [place], [place] [address]Dr. Farhat Leal Chloride [Moles/Vol] 99 mmol/L Normal 98-107 [facility] Comment on above: Performed By: #### B SWITCHBOARD MECHANIC, CMP, CRP ####[facility] Sacmjvader[address] [place], [place] [address]Dr. Farhat Leal CO2 [Moles/Vol] 22.6 mmol/L Normal 21.0-32.0 The [facility] Comment on above: Performed By: #### B SWITCHBOARD MECHANIC, CMP, CRP ####[facility] Kahybpahdw[address] [place], [place] [address]Dr. Farhat Leal Creatinine [Mass/Vol] 1.73 mg/dL Critically high 0.70-1.30 [facility] Comment on above: Performed By: #### B SWITCHBOARD MECHANIC, CMP, CRP ####[facility] Zzrpieytcp24[address] [place], [place] [address]Dr. Farhat Leal EGFR-AF RUSSIAN 47 mL/min/1.73m2 Critically low >=60 [facility] Comment on above: Performed By: #### B SWITCHBOARD MECHANIC, CMP, CRP ####[facility] Tsaxrwdufe[address] [place], [place] [address]Dr. Farhat Leal EGFR-NON AF RUSSIAN 38 mL/min/1.73m2 Critically low >=60 [facility] Comment on above: Performed By: #### B SWITCHBOARD MECHANIC, CMP, CRP ####[facility] Sjeyqgowav[address] [place], [place] [address]Dr. Farhat Leal Globulin (S) [Mass/Vol] 3.7 g/dL Normal [facility] Comment on above: Performed By: #### B SWITCHBOARD MECHANIC, CMP, CRP ####[facility] Yyqmvvfonc[address] [place] [address]Dr. Farhat Leal Glucose [Mass/Vol] 220 mg/dL Critically high 74-106 T [facility] Comment on above: Performed By: #### B SWITCHBOARD MECHANIC, CMP, CRP ####[facility] Gggylzphhf40[address] [place] [address]Dr. Farhat Leal Potassium [Moles/Vol] 3.8 mmol/L Normal 3.5-5.1 [facility] Comment on above: Performed By: #### B SWITCHBOARD MECHANIC, CMP, CRP ####[facility] Wgnsqurbzb85[address] [place] [address]Dr. Farhat Leal Protein [Mass/Vol] 5.1 g/dL Critically low 6.4-8.2 Th [facility] Comment on above: Performed By: #### B SWITCHBOARD MECHANIC, CMP, CRP ####[facility] Dvabtnudht[address] [place], [place] [address]Dr. Farhat Leal Sodium [Moles/Vol] 132 mmol/L Critically low 136-145 Th [facility] Comment on above: Performed By: #### B SWITCHBOARD MECHANIC, CMP, CRP ####[facility] Qgsfpnxrug437[address] [place], [place] [address]Dr. Farhat Leal Urea nitrogen [Mass/Vol] 49.0 mg/dL Critically high 7.0-18.0 [facility] Comment on above: Performed By: #### B SWITCHBOARD MECHANIC, CMP, CRP ####[facility] Effmqicctn66[address] [place], [place] [address]Dr. Farhat Leal Urea nitrogen/Creatinine [Mass ratio] 28.3 mg/mg Normal [facility] Comment on above: Performed By: #### B SWITCHBOARD MECHANIC, CMP, CRP ####[facility] Cikxaxoyjg[address] [place], [place] [address]Dr. Farhat Leal PROTIMEon 11-27-2021 INR Coag (PPP) [Relative time] 1.25 {INR} Normal [facility] Comment on above: Performed By: #### P T ####[facility] Aepyrrjnum[address] [place], [place] [address]Dr. Farhat Leal INR GUIDELINES SEE BELOW Normal [facility] Comment on above: Result Comment: MALINA RED INR: 2.0 - 3.0 CONDITIONS NOT LISTED BELOW 2.5 - 3.5 FOR PROSTHETIC HEART VALVE REPLACEMENT 2.5 - 3.5 RECURRENT THROMBOSIS Performed By: #### P T ####[facility] P[address]zfezhgjv7[address] [place] [address]Dr. Farhat Leal PT Coag (PPP) [Time] 13.3 s Critically high 9.0-11.6 [facility] Comment on above: Performed By: #### P T ####[facility] Zflkcvsppi01[address] [place], [place] [address]Dr. Farhat Leal [facility] SED RATE 60 mm/hr Critically high <=20 [facility] Comment on above: Performed By: #### S EDR ####[facility] Mqtnnzwgir[address] [place], [place] [address]Dr. Farhat Leal VANCOMYCIN TROUGHon 11-28-19 22 VANCOMYCIN TROUGH 21.2 ug/ml Critically high 5.0-20.0 Th [facility] Comment on above: Performed By: #### V ANCT ####[facility] Wsqhefpetf[address] [place], [place] [address]Dr. Farhat Leal XR CHEST 1 Von 11-27-2021 XR CHEST 1 V Normal [facility] BNPon 11-26-2021 Natriuretic peptide B (Bld) [Mass/Vol] 52676.0 pg/mL Critically high <=1,800.0 [facility] Comment on above: Performed By: #### B SWITCHBOARD MECHANIC, CRP, CMP ####[facility] Synfhschak[address] [place] [address]DrSkylar Leal CBC AUTO DIFFon 11-26-2021 BASO # 0.0 103/ul Normal 0.0-0.1 [facility] Comment on above: Performed By: #### C BC ####[facility] Heugohlcqp[address] [place], [place] [address]DrSkylar Leal Basophils/100 WBC (Bld) 0.2 % Normal 0.2-2.0 [facility] Comment on above: Performed By: #### C BC ####[facility] [address]ss[address] [place] [phone]. Farhat Leal EO # 0.0 103/ul Normal 0.0-0.7 [facility] Comment on above: Performed By: #### C BC ####[facility] Uwmwzgshtg5951 [place] [phone]. Farhat Leal Eosinophils/100 WBC (Bld) 0.3 % Critically low 0.9-7.0 [facility] Comment on above: Performed By: #### C BC ####[facility] Tuvyezwidp[address] [place] [address]Dr. Farhat Leal Erythrocyte distribution width (RBC) [Ratio] 13.9 % Normal 11.0-15.0 [facility] Comment on above: Performed By: #### C BC ####[facility] Gbaqludcyl[address] [place], [place] [address]Dr. Farhat Leal Hematocrit (Bld) [Volume fraction] 27.3 % Critically low 42.0-54.0 [facility] Comment on above: Performed By: #### C BC ####[facility] Vshwmqvmvb[address] [place], [place] [address]Dr. Farhat Leal Hemoglobin (Bld) [Mass/Vol] 8.8 g/dL Critically low 14.0-18.0 [facility] Comment on above: Performed By: #### C BC ####[facility] Zrutrxygtz[address] [place], [place] [address]Dr. Farhat Leal IG # 0.17 10e3/ul Critically high 0.00-0.03 [facility] Comment on above: Performed By: #### C BC ####[facility] Qzgkutcwxv6[address] [place], [place] [address]Dr. Farhat Leal IG % 1.2 % Critically high 0.0-0.5 [facility] Comment on above: Performed By: #### C BC ####[facility] Rkqaiqxzlv[address] [place], [place] [address]DrSkylar Leal LYMPH # 0.7 103/ul Critically low 1.2-3.8 [facility] Comment on above: Performed By: #### C BC ####[facility] Nagvmbdzkn54[address] [place] [address]Dr. Farhat Leal Lymphocytes/100 WBC (Bld) 4.8 % Critically low 20.5-60.0 [facility] Comment on above: Performed By: #### C BC ####[facility] Lxzcjwzygb40[address] [place] [address]Dr. Farhat Leal MANUAL DIFF REQ NO Normal [facility] Comment on above: Performed By: #### C BC ####[facility] Lbrlmigqfo4747 [place] [address]Dr. Farhat Leal MCH (RBC) [Entitic mass] 29.9 pg Normal 25.9-34.0 [facility] Comment on above: Performed By: #### C BC ####[facility] Juvljwugmn8[address] [place], [place] [address]Dr. Farhat Leal MCHC (RBC) [Mass/Vol] 32.2 g/dL Normal 29.9-35.2 [facility] Comment on above: Performed By: #### C BC ####[facility] Ctahabfuks[address] [place], [place] [address]Dr. Farhat Leal MCV (RBC) [Entitic vol] 92.9 fL Normal 80.0-94.0 [facility] Comment on above: Performed By: #### C BC ####[facility] K[address]syvhdpl20[address] [place] [address]Dr. Farhat Leal MONO # 1.3 103/ul Critically high 0.3-0.8 [facility] Comment on above: Performed By: #### C BC ####[facility] Snsvrtupnq[address] [place], [place] [address]Dr. Farhat Leal Monocytes/100 WBC (Bld) 9.6 % Normal 1.7-12.0 [facility] Comment on above: Performed By: #### C BC ####[facility] Iljxfmuvtf022[address] [place], [place] [address]Dr. Farhat Leal NEUT # 11.4 103/ul Critically high 1.4-6.5 [facility] Comment on above: Performed By: #### C BC ####[facility] Eyrtqjqsdx6709 [place] [address]Dr. Farhat Leal Neutrophils/100 WBC (Bld) 83.9 % Critically high 43.0-75.0 [facility] Comment on above: Performed By: #### C BC ####[facility] Tovxcgifvu8[address] [place] [address]Dr. Madelynlorri Elvis Platelet mean volume (Bld) [Entitic vol] 9.6 fL Normal 9.5-13.5 [facility] Comment on above: Performed By: #### C BC ####[facility] Lmrdnwzcjw7465 [place] [address]Dr. Farhat Leal PLT 395 103/ul Normal 150-450 [facility] Comment on above: Performed By: #### C BC ####[facility] Sgomuvupec32[address] [place] [address]Dr. Farhat Leal RBC 2.94 106/ul Critically low 4.70-6.10 [facility] Comment on above: Performed By: #### C BC ####[facility] Ioqbezzomm94[address] [place], [place] [address]Dr. Madelynlorri Elvis WBC 13.6 103/ul Critically high 4.0-11.0 [facility] Comment on above: Performed By: #### C BC ####[facility] Dbabcnbetc7389 [place] [address]Dr. Farhat Leal CRPon 11-26-2021 CRP [Mass/Vol] mg/L Critically high <=1.0 [facility] Comment on above: Performed By: #### B SWITCHBOARD MECHANIC, CRP, CMP ####[facility] Iamanmmnmz5658 [place] [address]Dr. Farhat Leal PROF 14(COMP METB)on 022 Albumin [Mass/Vol] 1.5 g/dL Critically low 3.4-5.[address] [facility] Comment on above: Performed By: #### B SWITCHBOARD MECHANIC, CRP, CMP ####[facility] Cdpuneqnzl6852 [place] [address]Dr. Farhat Leal Albumin/Globulin [Mass ratio] 0.4 {ratio} Normal [facility] Comment on above: Performed By: #### B SWITCHBOARD MECHANIC, CRP, CMP ####[facility] Aebybuwies64[address] [place] [address]Dr. Farhat Leal ALP [Catalytic activity/Vol] 88 U/L Normal 46-116 [facility] Comment on above: Performed By: #### B SWITCHBOARD MECHANIC, CRP, CMP ####[facility] Mxiinhgucs[address] [place], [place] [address]Dr. Farhat Elvis ALT [Catalytic activity/Vol] 29 U/L Normal 16-63 [facility] Comment on above: Performed By: #### B SWITCHBOARD MECHANIC, CRP, CMP ####[facility] Iunzpoptkg64[address] [place], [place] [address]Dr. Farhat Leal Anion gap [Moles/Vol] 13.3 mmol/L Normal [facility] Comment on above: Performed By: #### B SWITCHBOARD MECHANIC, CRP, CMP ####[facility] Uwdakbtukc[address] [place], [place] [address]Dr. Farhat Leal AST [Catalytic activity/Vol] 32 U/L Normal 15-37 [facility] Comment on above: Performed By: #### B SWITCHBOARD MECHANIC, CRP, CMP ####[facility] Ivdjhgdugm[address] [place], [place] [address]Dr. Madelynlorri Leal Bilirubin [Mass/Vol] 0.6 mg/dL Normal 0.2-1.0 [facility] Comment on above: Performed By: #### B SWITCHBOARD MECHANIC, CRP, CMP ####[facility] Hsdvolctib9[address] [place], [place] [address]Dr. Farhat Elvis Calcium [Mass/Vol] 8.0 mg/dL Critically low 8.5-10.[address] [facility] Comment on above: Performed By: #### B SWITCHBOARD MECHANIC, CRP, CMP ####[facility] Iqlkvyiqat426[address] [place], [place] [address]Dr. Farhat Leal Chloride [Moles/Vol] 98 mmol/L Normal 98-107 [facility] Comment on above: Performed By: #### B SWITCHBOARD MECHANIC, CRP, CMP ####[facility] Dvggztmpve9454 [place] [address]Dr. Farhat Leal CO2 [Moles/Vol] 23.7 mmol/L Normal 21.0-32.0 [facility] Comment on above: Performed By: #### B SWITCHBOARD MECHANIC, CRP, CMP ####[facility] Gjtblfypyy[address] [place], [place] [address]Dr. Farhat Leal Creatinine [Mass/Vol] 2.08 mg/dL Critically high 0.70-1.30 [facility] Comment on above: Performed By: #### B SWITCHBOARD MECHANIC, CRP, CMP ####[facility] Xviayfusxh7[address] [place], [place] [address]Dr. Farhat Elvis EGFR-AF RUSSIAN 38 mL/min/1.73m2 Critically low >=60 [facility] Comment on above: Performed By: #### B SWITCHBOARD MECHANIC, CRP, CMP ####[facility] Ulptwmavde[address] [place], [place] [address]Dr. Madelynlorri Elvis EGFR-NON AF RUSSIAN 31 mL/min/1.73m2 Critically low >=60 [facility] Comment on above: Performed By: #### B SWITCHBOARD MECHANIC, CRP, CMP ####[facility] Itikozahef[address] [place], [place] [address]Dr. Farhat Elvis Globulin (S) [Mass/Vol] 3.7 g/dL Normal [facility] Comment on above: Performed By: #### B SWITCHBOARD MECHANIC, CRP, CMP ####[facility] [address]nnjibl[address] [place], [place] [address]Dr. Farhat Elvis Glucose [Mass/Vol] 315 mg/dL Critically high 74-106 T [facility] Comment on above: Performed By: #### B SWITCHBOARD MECHANIC, CRP, CMP ####[facility] Evyztxbxxb656[address] [place], [place] [address]Dr. Farhat Leal Potassium [Moles/Vol] 4.0 mmol/L Normal 3.5-5.1 [facility] Comment on above: Performed By: #### B SWITCHBOARD MECHANIC, CRP, CMP ####[facility] Glcbrpixfy088[address] [place], [place] [address]Dr. Farhat Leal Protein [Mass/Vol] 5.2 g/dL Critically low 6.4-8.2 Th [facility] Comment on above: Performed By: #### B SWITCHBOARD MECHANIC, CRP, CMP ####[facility] Spamzczqmh79[address] [place] [address]Dr. Farhat Leal Sodium [Moles/Vol] 131 mmol/L Critically low 136-145 Th [facility] Comment on above: Performed By: #### B SWITCHBOARD MECHANIC, CRP, CMP ####[facility] Bmxbpuminf92[address] [place], [place] [address]Dr. Farhat Leal Urea nitrogen [Mass/Vol] 50.0 mg/dL Critically high 7.0-18.0 [facility] Comment on above: Performed By: #### B SWITCHBOARD MECHANIC, CRP, CMP ####[facility] Bogktthlrw[address] [place], [place] [address]Dr. Farhat Leal Urea nitrogen/Creatinine [Mass ratio] 24.0 mg/mg Normal [facility] Comment on above: Performed By: #### B SWITCHBOARD MECHANIC, CRP, CMP ####[facility] Iyczlvdstn[address] [place], [place] [address]Dr. Farhat Leal PROTIMEon 11-26-2021 INR Coag (PPP) [Relative time] 1.31 {INR} Normal [facility] Comment on above: Performed By: #### P T ####[facility] Oyelwardoq[address] [place], [place] [address]DrSkylar Leal INR GUIDELINES SEE BELOW Normal [facility] Comment on above: Result Comment: MALINA RED INR: 2.0 - 3.0 CONDITIONS NOT LISTED BELOW 2.5 - 3.5 FOR PROSTHETIC HEART VALVE REPLACEMENT 2.5 - 3.5 RECURRENT THROMBOSIS Performed By: #### P T ####[facility] Mvakvuwocv[address] [place], [place] [address]Dr. Farhat Leal PT Coag (PPP) [Time] 13.9 s Critically high 9.0-11.6 [facility] Comment on above: Performed By: #### P T ####[facility] H[address]ilqtgxtg[address] [place], [place] [address]DrSkylar Leal SED RATE WESTERGRENon 2021 SED RATE 87 mm/hr Critically high <=20 [facility] Comment on above: Performed By: #### S EDR ####[facility] Uupmccrfzr124[address] [place], [place] [address]Dr. Farhat Leal BNPon 11-25-2021 Natriuretic peptide B (Bld) [Mass/Vol] 58375.0 pg/mL Critically high <=1,800.0 [facility] Comment on above: Performed By: #### C MP, BNP, CRP ####[facility] Gavwhydedd169[address] [place], [place] [address]Dr. Madelynlorri Leal CBC AUTO DIFFon 11-25-2021 BASO # 0.0 103/ul Normal 0.0-0.1 [facility] Comment on above: Performed By: #### C BC ####[facility] Oqvpwunqwm[address] [place], [place] [address]Dr. Farhat Leal Basophils/100 WBC (Bld) 0.4 % Normal 0.2-2.0 [facility] Comment on above: Performed By: #### C BC ####[facility] Mqcrewchbs[address] [place], [place] [address]Dr. Farhat Leal EO # 0.1 103/ul Normal 0.0-0.7 [facility] Comment on above: Performed By: #### C BC ####[facility] Vfjxbijtel[address] [place], [place] [address]Dr. Farhat Leal Eosinophils/100 WBC (Bld) 1.2 % Normal 0.9-7.0 [facility] Comment on above: Performed By: #### C BC ####[facility] Oyidxjlvfo[address] [place], [place] [address]Dr. Farhat Leal Erythrocyte distribution width (RBC) [Ratio] 13.7 % Normal 11.0-15.0 [facility] Comment on above: Performed By: #### C BC ####[facility] Bvtbgpvzsn[address] [place], [place] [address]Dr. Farhat Leal Hematocrit (Bld) [Volume fraction] 29.6 % Critically low 42.0-54.0 [facility] Comment on above: Performed By: #### C BC ####[facility] [address]rzmtmmf[address] [place] [id number]. Farhat Leal Hemoglobin (Bld) [Mass/Vol] 9.3 g/dL Critically low 14.0-18.0 [facility] Comment on above: Performed By: #### C BC ####[facility] Gjoksjyigg78[address] [place] [phone]. Farhat Leal IG # 0.15 10e3/ul Critically high 0.00-0.03 [facility] Comment on above: Performed By: #### C BC ####[facility] Avsshrunkn3094 [place] [id number]. Farhat Leal IG % 1.4 % Critically high 0.0-0.5 [facility] Comment on above: Performed By: #### C BC ####[facility] Lltxzzorok[address] [place] [address]Dr. Farhat Leal LYMPH # 0.8 103/ul Critically low 1.2-3.8 [facility] Comment on above: Performed By: #### C BC ####[facility] Zkggdkahco2905 [place] [phone]. Farhat Leal Lymphocytes/100 WBC (Bld) 7.3 % Critically low 20.5-60.0 [facility] Comment on above: Performed By: #### C BC ####[facility] Fbsimbtwle[address] [place] [phone]. Farhat Leal MANUAL DIFF REQ NO Normal [facility] Comment on above: Performed By: #### C BC ####[facility] Qufjlgtitb8536 [place] [phone]. Farhat Leal MCH (RBC) [Entitic mass] 29.3 pg Normal 25.9-34.0 [facility] Comment on above: Performed By: #### C BC ####[facility] Dneonfmyno7041 [place] [phone]. Farhat Leal MCHC (RBC) [Mass/Vol] 31.4 g/dL Normal 29.9-35.2 [facility] Comment on above: Performed By: #### C BC ####[facility] Yekwwyzhvi[address] [place] [id number]. Farhat Leal MCV (RBC) [Entitic vol] 93.4 fL Normal 80.0-94.0 [facility] Comment on above: Performed By: #### C BC ####[facility] Dtwzfkncks3401 [place] [phone] Farhat Leal MONO # 1.3 103/ul Critically high 0.3-0.8 [facility] Comment on above: Performed By: #### C BC ####[facility] Hlujkwlcpj5066 [place] [phone]. Farhat Leal Monocytes/100 WBC (Bld) 12.3 % Critically high 1.7-12.0 [facility] Comment on above: Performed By: #### C BC ####[facility] Fyztmgewoo[address] [place], [place] [address]Dr. Farhat Leal NEUT # 8.4 103/ul Critically high 1.4-6.5 [facility] Comment on above: Performed By: #### C BC ####[facility] [facility] X[address]pcrkb[address] [place] [phone]. Farhat Leal Neutrophils/100 WBC (Bld) 77.4 % Critically high 43.0-75.0 [facility] Comment on above: Performed By: #### C BC ####[facility] Pwcokvhiay[address] [place] [phone]. Farhat Elvis Platelet mean volume (Bld) [Entitic vol] 9.8 fL Normal 9.5-13.5 [facility] Comment on above: Performed By: #### C BC ####[facility] Rqhagrpseq[address] [place] [phone]. Farhat Elvis PLT 390 103/ul Normal 150-450 [facility] Comment on above: Performed By: #### C BC ####[facility] Ehuvxjywnp5[address] [place] [id number]. Farhat Leal RBC 3.17 106/ul Critically low 4.70-6.10 [facility] Comment on above: Performed By: #### C BC ####[facility] Cpofkejfny[address] [place] [address]Dr. Farhat Leal WBC 10.9 103/ul Normal 4.0-11.0 [facility] Comment on above: Performed By: #### C BC ####[facility] Zggekfhyjv[address] [place] [address]Dr. Farhat Leal CRPon 11-25-2021 CRP 27.2 mg/dL Critically high <=1.0 [facility] Comment on above: Performed By: #### C MP, BNP, CRP ####[facility] Ywjxfpcrqk44[address] [place] [address]Dr. Farhat Leal PROF 14(COMP METB)on 022 Albumin [Mass/Vol] 1.5 g/dL Critically low 3.4-5.[address] [facility] Comment on above: Performed By: #### C MP, BNP, CRP ####[facility] Kjfhtfcrtf[address] [place] [address]Dr. Farhat Leal Albumin/Globulin [Mass ratio] 0.4 {ratio} Normal [facility] Comment on above: Performed By: #### C MP, BNP, CRP ####[facility] Gnhysvefly[address] [place] [address]Dr. Farhat Leal ALP [Catalytic activity/Vol] 86 U/L Normal 46-116 [facility] Comment on above: Performed By: #### C MP, BNP, CRP ####[facility] Grflgtxiud37[address] [place] [address]Dr. Farhat Leal ALT [Catalytic activity/Vol] 34 U/L Normal 16-63 [facility] Comment on above: Performed By: #### C MP, BNP, CRP ####[facility] Zyjihvlpgv8235 [place] [address]Dr. Farhat Leal Anion gap [Moles/Vol] 17.8 mmol/L Normal [facility] Comment on above: Performed By: #### C MP, BNP, CRP ####[facility] Ckojkv[address]yw[address] [place], [place] [address]Dr. Farhat Leal AST [Catalytic activity/Vol] 48 U/L Critically high 15-37 [facility] Comment on above: Performed By: #### C MP, BNP, CRP ####[facility] Dcetzwiggh[address] [place] [address]Dr. Farhat Leal Bilirubin [Mass/Vol] 0.8 mg/dL Normal 0.2-1.0 [facility] Comment on above: Performed By: #### C MP, BNP, CRP ####[facility] Egfsvnwirm[address] [place], [place] [address]Dr. Farhat Leal Calcium [Mass/Vol] 8.3 mg/dL Critically low 8.5-10.1 [facility] Comment on above: Performed By: #### C MP, BNP, CRP ####[facility] Fqameuundc[address] [place], [place] [address]Dr. Farhat Leal Chloride [Moles/Vol] 97 mmol/L Critically low 98-107 [facility] Comment on above: Performed By: #### C MP, BNP, CRP ####[facility] Ptliodmihs[address] [place], [place] [address]Dr. Farhat Leal CO2 [Moles/Vol] 23.0 mmol/L Normal 21.0-32.0 The [facility] Comment on above: Performed By: #### C MP, BNP, CRP ####[facility] Ownmqcupkz[address] [place], [place] [address]Dr. Farhat Leal Creatinine [Mass/Vol] 1.68 mg/dL Critically high 0.70-1.30 [facility] Comment on above: Performed By: #### C MP, BNP, CRP ####[facility] Ecppiphkwy[address] [place], [place] [address]Dr. Farhat Leal EGFR-AF RUSSIAN 48 mL/min/1.73m2 Critically low >=60 [facility] Comment on above: Performed By: #### C MP, BNP, CRP ####[facility] Qzquorbkna[address] [place], [place] [address]Dr. Farhat Leal EGFR-NON AF RUSSIAN 40 mL/min/1.73m2 Critically low >=60 [facility] Comment on above: Performed By: #### C MP, BNP, CRP ####[facility] Bzhaovffjm[address] [place] [address]Dr. Farhat Leal Globulin (S) [Mass/Vol] 3.9 g/dL Normal [facility] Comment on above: Performed By: #### C MP, BNP, CRP ####[facility] Aftdedctcr07[address] [place] [address]Dr. Farhat Leal Glucose [Mass/Vol] 282 mg/dL Critically high 74-106 [facility] Comment on above: Performed By: #### C MP, BNP, CRP ####[facility] Ckcocvbexj894[address] [place], [place] [address]Dr. Farhat Leal Potassium [Moles/Vol] 4.8 mmol/L Normal 3.5-5.1 [facility] Comment on above: Performed By: #### C MP, BNP, CRP ####[facility] Rlqqlbefly[address] [place], [place] [address]Dr. Farhat Leal Protein [Mass/Vol] 5.4 g/dL Critically low 6.4-8.2 Th [facility] Comment on above: Performed By: #### C MP, BNP, CRP ####[facility] Jvoartxvbg127[address] [place], [place] [address]Dr. Farhat Leal Sodium [Moles/Vol] 133 mmol/L Critically low 136-145 [facility] Comment on above: Performed By: #### C MP, BNP, CRP ####[facility] Jzwmwyxlpa[address] [place], [place] [address]Dr. Farhat Leal Urea nitrogen [Mass/Vol] 40.0 mg/dL Critically high 7.0-18.0 [facility] Comment on above: Performed By: #### C MP, BNP, CRP ####[facility] Qznsqqzcge365[address] [place], [place] [address]Dr. Farhat Leal Urea nitrogen/Creatinine [Mass ratio] 23.8 mg/mg Normal [facility] Comment on above: Performed By: #### C MP, BNP, CRP ####[facility] Bymkmulklw74[address] [place], [place] [address]Dr. Farhat Leal PROTIMEon 11-25-2021 INR Coag (PPP) [Relative time] 1.48 {INR} Normal [facility] Comment on above: Performed By: #### P T ####[facility] Ienatonpwt[address] [place] [address]Dr. Madelynlorri Leal INR GUIDELINES SEE BELOW Normal [facility] Comment on above: Result Comment: MALINA RED INR: 2.0 - 3.0 CONDITIONS NOT LISTED BELOW 2.5 - 3.5 FOR PROSTHETIC HEART VALVE REPLACEMENT 2.5 - 3.5 RECURRENT THROMBOSIS Performed By: #### P T ####[facility] Linyiskiil[address] [place], [place] [address]Dr. Farhat Leal PT Coag (PPP) [Time] 15.6 s Critically high 9.0-11.6 [facility] Comment on above: Performed By: #### P T ####[facility] Smjkpjrzvr[address] [place], [place] [address]Dr. Farhat Leal SED RATE WESTERGRENon 2021 SED RATE 76 mm/hr Critically high <=20 [facility] Comment on above: Performed By: #### S EDR ####[facility] Izafqfzafu[address] [place], [place] [address]Dr. Farhat Leal BNPon 11-24-2021 Natriuretic peptide B (Bld) [Mass/Vol] 15914.0 pg/mL Critically high <=1,800.0 [facility] Comment on above: Performed By: #### B SWITCHBOARD MECHANIC, CMP, CRP ####[facility] Wmtclazvid[address] [place], [place] [address]Dr. Farhat Leal CBC AUTO DIFFon 11-24-2021 BASO # 0.0 103/ul Normal 0.0-0.1 [facility] Comment on above: Performed By: #### C BC ####[facility] Xnuhlqhzmi[address] [place], [place] [address]Dr. Farhat Leal Basophils/100 WBC (Bld) 0.3 % Normal 0.2-2.0 [facility] Comment on above: Performed By: #### C BC ####[facility] R[address]vygbtz[address] [place] [id number]. Farhat Leal EO # 0.2 103/ul Normal 0.0-0.7 [facility] Comment on above: Performed By: #### C BC ####[facility] Ghtylgxatc57[address] [place] [phone]. Farhat Leal Eosinophils/100 WBC (Bld) 1.2 % Normal 0.9-7.0 [facility] Comment on above: Performed By: #### C BC ####[facility] Oetlgwazok55[address] [place] [phone]. Farhat Leal Erythrocyte distribution width (RBC) [Ratio] 13.5 % Normal 11.0-15.0 [facility] Comment on above: Performed By: #### C BC ####[facility] Ivvhlwfvrt18[address] [place] [address]Dr. Farhat Leal Hematocrit (Bld) [Volume fraction] 31.1 % Critically low 42.0-54.0 [facility] Comment on above: Performed By: #### C BC ####[facility] Weuhqecmgw53[address] [place] [address]Dr. Farhat Leal Hemoglobin (Bld) [Mass/Vol] 10.0 g/dL Critically low 14.0-18.0 [facility] Comment on above: Performed By: #### C BC ####[facility] Jkuzqwpdoj60[address] [place] [id number]. Farhat Leal IG # 0.13 10e3/ul Critically high 0.00-0.03 The [facility] Comment on above: Performed By: #### C BC ####[facility] Syiiorxkoo[address] [place] [phone]. Farhat Leal IG % 1.0 % Critically high 0.0-0.5 [facility] Comment on above: Performed By: #### C BC ####[facility] Xegriqdsww87[address] [place] [phone]. Farhat Leal LYMPH # 0.7 103/ul Critically low 1.2-3.8 [facility] Comment on above: Performed By: #### C BC ####[facility] Sxkilbveqs7279 [place] [phone]. Farhat Elvis Lymphocytes/100 WBC (Bld) 4.9 % Critically low 20.5-60.0 [facility] Comment on above: Performed By: #### C BC ####[facility] Gcvlphikif32[address] [place] [phone]. Farhat Leal MANUAL DIFF REQ NO Normal [facility] Comment on above: Performed By: #### C BC ####[facility] [address]ce[address]ct[address] [place], [place] [address]Dr. Madelynlorri Leal MCH (RBC) [Entitic mass] 29.6 pg Normal 25.9-34.0 [facility] Comment on above: Performed By: #### C BC ####[facility] Hftvwnwmmj[address] [place], [place] [address]Dr. Farhat Leal MCHC (RBC) [Mass/Vol] 32.2 g/dL Normal 29.9-35.2 [facility] Comment on above: Performed By: #### C BC ####[facility] Vwzldijsrx[address] [place], [place] [address]Dr. Madelynlorri Leal MCV (RBC) [Entitic vol] 92.0 fL Normal 80.0-94.0 [facility] Comment on above: Performed By: #### C BC ####[facility] Fdjpjwpuaq[address] [place], [place] [address]Dr. Farhat Leal MONO # 1.3 103/ul Critically high 0.3-0.8 [facility] Comment on above: Performed By: #### C BC ####[facility] Wibqstjitt[address] [place], [place] [address]Dr. Farhat Leal Monocytes/100 WBC (Bld) 9.6 % Normal 1.7-12.0 [facility] Comment on above: Performed By: #### C BC ####[facility] [address]qmbuwov[address] [place], [place] [address]Dr. Farhat Leal NEUT # 11.2 103/ul Critically high 1.4-6.5 The [facility] Comment on above: Performed By: #### C BC ####[facility] Rxnujyiygq0196 [place], [place] [address]Gu. Farhat Leal Neutrophils/100 WBC (Bld) 83.0 % Critically high 43.0-75.0 [facility] Comment on above: Performed By: #### C BC ####[facility] Wsdaryfdjm9146 [place] [phone]. Farhat Leal Platelet mean volume (Bld) [Entitic vol] 9.5 fL Normal 9.5-13.5 [facility] Comment on above: Performed By: #### C BC ####[facility] Bsgxmoedtx9[address] [place] [phone]. Farhat Leal PLT 395 103/ul Normal 150-450 [facility] Comment on above: Performed By: #### C BC ####[facility] Trepphknmo38[address] [place] [phone]. Farhat Leal RBC 3.38 106/ul Critically low 4.70-6.10 [facility] Comment on above: Performed By: #### C BC ####[facility] Vmugtvfvyd1925 [place] [phone]. Farhat Leal WBC 13.4 103/ul Critically high 4.0-11.0 [facility] Comment on above: Performed By: #### C BC ####[facility] Ywyqhsiyzo7527 [place] [phone]. Farhat Leal CRPon 11-24-2021 CRP 27.8 mg/dL Critically high <=1.0 [facility] Comment on above: Performed By: #### B SWITCHBOARD MECHANIC, CMP, CRP ####[facility] Bou[address]vhlvfz[address] [place] [phone]. Farhat Leal CULTURE ANAEROBICon 11-25-19 22 CULTURE ANAEROBIC Culture Observations : NO GROWTH OF ANAEROBES AT 72 HOURS. [facility] Comment on above: Performed By: #### A NACX ####[facility] Zsgpuspwlj2650 [place] [phone]. Farhat Leal CULTURE ANAEROBIC Culture Observations : NO GROWTH OF ANAEROBES AT 72 HOURS. Normal [facility] Comment on above: Performed By: #### A NACX ####[facility] Mazfhlcvrn[address] [place], [place] [address]Dr. Madelynlan Leal CULTURE ANAEROBIC Culture Observations : No growth of anaerobes at 72 hours. Normal [facility] Comment on above: Performed By: #### A NACX ####[facility] Lymbyurrkm[address] [place], [place] [address]Dr. Yilan Leal CULTURE ANAEROBIC Culture Observations : No growth of anaerobes at 72 hours. Normal [facility] Comment on above: Performed By: #### A NACX ####[facility] Blhgylnaeq[address] [place], [place] [address]Dr. Madelynlorri Leal CULTURE URINEon 11-24-2021 CULTURE URINE Culture Observations : NO GROWTH. Normal [facility] Comment on above: Performed By: #### U RCX ####[facility] Vmyuanlhnt[address] [place], [place] [address]Dr. Farhat Leal ECHOCARDIO M/2D COMPLETEon 1 ECHOCARDIO M/2D COMPLETE Normal [facility] ER URINE PROFILEon Bilirubin Ql (U) Negative Normal NEGATIVE [facility] Comment on above: Performed By: #### E RUR ####[facility] Cajtqugzkq[address] [place], [place] [address]Dr. Farhat Leal Clarity (U) CLEAR Normal CLEAR [facility] Comment on above: Performed By: #### E RUR ####[facility] F[address]ulvkmjjz[address] [place], [place] [address]Dr. Farhat Leal Color (U) YELLOW Normal YELLOW [facility] Comment on above: Performed By: #### E RUR ####[facility] Qjyseqxvnm[address] [place], [place] [address]Dr. Farhat Leal ERUAHD A micrscopic examination will be performed if indicated. [facility] Comment on above: Performed By: #### E RUR ####[facility] Noewzoeafx[address] [place], [place] [address]Dr. Farhat Leal Glucose Ql (U) Negative Normal NEGATIVE [facility] Comment on above: Performed By: #### E RUR ####[facility] Skmthphsgr[address] [place], [place] [address]Dr. Farhat Leal Hemoglobin Ql (U) Negative Normal NEGATIVE The [facility] Comment on above: Performed By: #### E RUR ####[facility] Noewqfllax9[address] [place], [place] [address]Dr. Farhat Leal Ketones Ql (U) TRACE Abnormal NEGATIVE [facility] Comment on above: Performed By: #### E RUR ####[facility] Iemavghyrq[address] [place], [place] [address]Dr. Farhat Elvis LEUKOCYTES Negative Normal NEGATIVE [facility] Comment on above: Performed By: #### E RUR ####[facility] Nxbopcdnta003[address] [place], [place] [address]Dr. Farhat Leal Nitrite Ql (U) Negative Normal NEGATIVE [facility] Comment on above: Performed By: #### E RUR ####[facility] Bwamubhpbs[address] [place], [place] [address]Dr. Farhat Leal pH (U) 5.5 [pH] Normal 5-9 [facility] Comment on above: Performed By: #### E RUR ####[facility] Hbbflohtss[address] [place], [place] [address]Dr. Madelynlorri Elvis SPEC GRAVITY 1.015 Normal 1.005-<=1.02 5 [facility] Comment on above: Performed By: #### E RUR ####[facility] Mdfccnspwz5[address] [place], [place] [address]Dr. Farhat Leal UA PROTEIN Negative Normal NEGATIVE/ TRACE [facility] Comment on above: Performed By: #### E RUR ####[facility] Vfbedkvmez[address] [place], [place] [address]Dr. Farhat Leal UR MICRO IND NOT INDICATED Normal [facility] Comment on above: Performed By: #### E RUR ####[facility] Axyuvudijw[address] [place], [place] [address]Dr. Farhat Leal Urobilinogen Qn (U) 0.2 {Boyd'U}/dL Normal 0.2 - 1. 0 [facility] Comment on above: Performed By: #### E RUR ####[facility] Bhtqwcgmmd[address] [place] [address]Dr. Farhat Leal GRAM STAINon 11-24-2021 DIPHTHEROIDS Normal [facility] Comment on above: Performed By: #### G STAIN ####[facility] Tbhbnhvdtr33[address] [place] [address]Dr. Farhat Leal EPITHELIALS Normal [facility] Comment on above: Performed By: #### G STAIN ####[facility] Krhmtrfoek30[address] [place] [address]Dr. Farhat Leal FUNGAL ELEMENTS Normal [facility] Comment on above: Performed By: #### G STAIN ####[facility] V[address]kgytawj[address] [place], [place] [address]Dr. Farhat Leal GRAM NEG BACILLI Normal The [facility] Comment on above: Performed By: #### G STAIN ####[facility] Cehmkebvzw[address] [place], [place] [address]Dr. Farhat Leal GRAM NEG DIPPLOCOCCI Normal [facility] Comment on above: Performed By: #### G STAIN ####[facility] Rdxdaulrld[address] [place], [place] [address]Dr. Farhat Leal GRAM POS BACILLI Normal The [facility] Comment on above: Performed By: #### G STAIN ####[facility] Lvztyhnutr[address] [place], [place] [address]Dr. Farhat Leal GRAM POSITIVE COCCI FEW Normal The [facility] Comment on above: Performed By: #### G STAIN ####[facility] Vmdctfzqbf34[address] [place] [address]Dr. Farhat Leal GRAM STAIN SOURCE RT ACHILLES TENDON Normal [facility] Comment on above: Performed By: #### G STAIN ####[facility] Vmapmxqtmn[address] [place], [place] [address]Dr. Farhat Leal GS_DIPTH Normal [facility] Comment on above: Performed By: #### G STAIN ####[facility] Jythnhcdlo[address] [place], [place] [address]Dr. Farhat Leal WBC RARE Normal [facility] Comment on above: Performed By: #### G STAIN ####[facility] Uumdodwawo35[address] [place] [phone]. Farhat Leal COMMENTS NO ORGANISMS OBSERVED Normal [facility] Comment on above: Performed By: #### G STAIN ####[facility] Odsjhlhyts9806 [place] [phone]. Farhat Leal DIPHTHEROIDS Normal [facility] Comment on above: Performed By: #### G STAIN ####[facility] Nfcyxeviup52[address] [place] [address]Dr. Farhat Leal EPITHELIALS Normal [facility] Comment on above: Performed By: #### G STAIN ####[facility] Hwsznzbame[address] [place], [place] [address]Dr. Farhat Leal FUNGAL ELEMENTS Normal [facility] Comment on above: Performed By: #### G STAIN ####[facility] Xrglccizdb[address] [place], [place] [address]Dr. Farhat Leal GRAM NEG BACILLI Normal The [facility] Comment on above: Performed By: #### G STAIN ####[facility] Unmqtbdqbx054[address] [place], [place] [address]Dr. Farhat Leal GRAM NEG DIPPLOCOCCI Normal [facility] Comment on above: Performed By: #### G STAIN ####[facility] Zqyzbimigt[address] [place], [place] [address]Dr. Farhat Leal GRAM POS BACILLI Normal [facility] Comment on above: Performed By: #### G STAIN ####[facility] Pgdipanfmv3404 [place] [address]Dr. Farhat Leal GRAM POSITIVE COCCI Normal The [facility] Comment on above: Performed By: #### G STAIN ####[facility] Krjzicqxkq[address] [place] [address]Dr. Farhat Leal GRAM STAIN SOURCE RT CALCANEOUS Normal [facility] Comment on above: Performed By: #### G STAIN ####[facility] Hopdrupqpz[address] [place] [address]Dr. Farhat Leal GS_DIPTH Normal [facility] Comment on above: Performed By: #### G STAIN ####[facility] Ijpypogliu9348 [place] [phone]. Farhat Leal WBC RARE Normal [facility] Comment on above: Performed By: #### G STAIN ####[facility] Jndjgmolmj75[address] [place] [address]Dr. Farhat Leal DIPHTHEROIDS Normal [facility] Comment on above: Performed By: #### G STAIN ####[facility] Nbmungedtb3496 [place] [address]Dr. Farhat Leal EPITHELIALS Normal [facility] Comment on above: Performed By: #### G STAIN ####[facility] Ircqfvoibb6633 [place] [address]Dr. Farhat Leal FUNGAL ELEMENTS Normal [facility] Comment on above: Performed By: #### G STAIN ####[facility] Sxttbxnpxl8501 [place] [address]Dr. Farhat Leal GRAM NEG BACILLI FEW Normal The [facility] Comment on above: Performed By: #### G STAIN ####[facility] Pksoudpnhr8437 [place] [address]Dr. Farhat Leal GRAM NEG DIPPLOCOCCI Normal [facility] Comment on above: Performed By: #### G STAIN ####[facility] [address]nrqylqtvh[address] [place], [place] [address]Dr. Farhat Leal GRAM POS BACILLI Normal The [facility] Comment on above: Performed By: #### G STAIN ####[facility] Pnzlmlgplk38[address] [place] [address]Dr. Farhat Leal GRAM POSITIVE COCCI FEW Normal The [facility] Comment on above: Performed By: #### G STAIN ####[facility] Kozspbfjni[address] [place] [address]Dr. Farhat Leal GRAM STAIN SOURCE #2 Rt foot abscess Normal [facility] Comment on above: Performed By: #### G STAIN ####[facility] Mkoplbayjc2604 [place] [address]Dr. Farhat Leal GS_DIPTH Normal [facility] Comment on above: Performed By: #### G STAIN ####[facility] Tyaiamojlm[address] [place], [place] [address]Dr. Farhat Leal WBC RARE Normal [facility] Comment on above: Performed By: #### G STAIN ####[facility] Vqqmqofffa7[address] [place] [address]Dr. Farhat Leal DIPHTHEROIDS Normal [facility] Comment on above: Performed By: #### G STAIN ####[facility] Eldpxcaing2209 [place] [address]Dr. Farhat Leal EPITHELIALS Normal [facility] Comment on above: Performed By: #### G STAIN ####[facility] Gjhvrtzdfq5042 [place] [address]Dr. Farhat Leal FUNGAL ELEMENTS Normal [facility] Comment on above: Performed By: #### G STAIN ####[facility] Hwtjhgrjux[address] [place], [place] [address]Dr. Farhat Leal GRAM NEG BACILLI FEW Normal The [facility] Comment on above: Performed By: #### G STAIN ####[facility] Hwikrtlduv[address] [place], [place] [address]Dr. Farhat Leal GRAM NEG DIPPLOCOCCI Normal [facility] Comment on above: Performed By: #### G STAIN ####[facility] Ygulmjqjfg134[address] [place], [place] [address]Dr. Farhat Leal GRAM POS BACILLI Normal The [facility] Comment on above: Performed By: #### G STAIN ####[facility] Nykgcewtjn5344 [place] [address]Dr. Farhat Leal GRAM POSITIVE COCCI FEW Normal The [facility] Comment on above: Performed By: #### G STAIN ####[facility] Ogruacwoxk[address] [place], [place] [address]Dr. Farhat Leal GRAM STAIN SOURCE #1 Rt foot abscess Normal [facility] Comment on above: Performed By: #### G STAIN ####[facility] Wshmdtubpp[address] [place], [place] [address]Dr. Farhat Leal GS_DIPTH Normal [facility] Comment on above: Performed By: #### G STAIN ####[facility] R[address]cdoslkdi[address] [place], [place] [address]Dr. Farhat Leal WBC NONE SEEN Normal [facility] Comment on above: Performed By: #### G STAIN ####[facility] [address]myuev[address] [place] [address]Dr. Farhat Leal POINT OF CARE GLUCOSEon 11-15 0 Glucose [Mass/Vol] 331 mg/dL Critically high 74-106 [facility] Comment on above: Performed By: #### P OCGLUC ####[facility] Wjehuzkmfm66[address] [place] [address]Dr. Farhat Leal Glucose [Mass/Vol] 236 mg/dL Critically high 74-106 [facility] Comment on above: Performed By: #### P OCGLUC ####[facility] [address] [place] [address]Dr. Farhat Leal PROF 14(COMP METB)on 022 Albumin [Mass/Vol] 1.6 g/dL Critically low 3.4-5.[address] [facility] Comment on above: Performed By: #### B SWITCHBOARD MECHANIC, CMP, CRP ####[facility] V[address]kisozuo[address] [place] [address]Dr. Farhat Leal Albumin/Globulin [Mass ratio] 0.4 {ratio} Normal [facility] Comment on above: Performed By: #### B SWITCHBOARD MECHANIC, CMP, CRP ####[facility] B[address] [place] [address]Dr. Farhat Leal ALP [Catalytic activity/Vol] 94 U/L Normal 46-116 [facility] Comment on above: Performed By: #### B SWITCHBOARD MECHANIC, CMP, CRP ####[facility] [address]feemx[address] [place] [address]Dr. Farhat Leal ALT [Catalytic activity/Vol] 49 U/L Normal 16-63 [facility] Comment on above: Performed By: #### B SWITCHBOARD MECHANIC, CMP, CRP ####[facility] [address]qgsh[address] [place] [address]Dr. Farhat Leal Anion gap [Moles/Vol] 12.5 mmol/L Normal [facility] Comment on above: Performed By: #### B SWITCHBOARD MECHANIC, CMP, CRP ####[facility] Ics[address]ohst[address] [place], [place] [address]Dr. Farhat Leal AST [Catalytic activity/Vol] 102 U/L Critically high 15-37 [facility] Comment on above: Performed By: #### B SWITCHBOARD MECHANIC, CMP, CRP ####[facility] Umqcdurpju[address] [place], [place] [address]Dr. Farhat Leal Bilirubin [Mass/Vol] 0.8 mg/dL Normal 0.2-1.0 [facility] Comment on above: Performed By: #### B SWITCHBOARD MECHANIC, CMP, CRP ####[facility] [address]kmsusfn[address] [place], [place] [address]Dr. Farhat Leal Calcium [Mass/Vol] 8.4 mg/dL Critically low 8.5-10.1 Th e [facility] Comment on above: Performed By: #### B SWITCHBOARD MECHANIC, CMP, CRP ####[facility] Hufivizgie[address] [place], [place] [address]Dr. Farhat Leal Chloride [Moles/Vol] 96 mmol/L Critically low 98-107 [facility] Comment on above: Performed By: #### B SWITCHBOARD MECHANIC, CMP, CRP ####[facility] N[address]tejmaw[address] [place], [place] [address]Dr. Farhat Leal CO2 [Moles/Vol] 24.8 mmol/L Normal 21.0-32.0 The [facility] Comment on above: Performed By: #### B SWITCHBOARD MECHANIC, CMP, CRP ####[facility] Rcfmkttbll124[address] [place], [place] [address]Dr. Farhat Leal Creatinine [Mass/Vol] 1.36 mg/dL Critically high 0.70-1.30 [facility] Comment on above: Performed By: #### B SWITCHBOARD MECHANIC, CMP, CRP ####[facility] Lctkctgbjs[address] [place], [place] [address]Dr. Farhat Leal EGFR-AF RUSSIAN >60 Normal >=60 The [facility] Comment on above: Performed By: #### B SWITCHBOARD MECHANIC, CMP, CRP ####[facility] Xhcyhrentt[address] [place], [place] [address]Dr. Farhat Elvis EGFR-NON AF RUSSIAN 51 mL/min/1.73m2 Critically low >=60 [facility] Comment on above: Performed By: #### B SWITCHBOARD MECHANIC, CMP, CRP ####[facility] [address]fg[address] [place] [address]Dr. Farhat Leal Globulin (S) [Mass/Vol] 4.1 g/dL Normal [facility] Comment on above: Performed By: #### B SWITCHBOARD MECHANIC, CMP, CRP ####[facility] [address]zlqtpjz[address] [place] [address]Dr. Farhat Leal Glucose [Mass/Vol] 204 mg/dL Critically high 74-106 T [facility] Comment on above: Performed By: #### B SWITCHBOARD MECHANIC, CMP, CRP ####[facility] Xztrtpektw[address] [place], [place] [address]Dr. Farhat Leal Potassium [Moles/Vol] 4.3 mmol/L Normal 3.5-5.1 [facility] Comment on above: Performed By: #### B SWITCHBOARD MECHANIC, CMP, CRP ####[facility] Wwpemlkoys[address] [place], [place] [address]Dr. Farhat Leal Protein [Mass/Vol] 5.7 g/dL Critically low 6.4-8.2 Th [facility] Comment on above: Performed By: #### B SWITCHBOARD MECHANIC, CMP, CRP ####[facility] Efxvxoqstt99[address] [place], [place] [address]Dr. Farhat Leal Sodium [Moles/Vol] 129 mmol/L Critically low 136-145 Th [facility] Comment on above: Performed By: #### B SWITCHBOARD MECHANIC, CMP, CRP ####[facility] Ufvkoeswdm[address] [place], [place] [address]Dr. Farhat Leal Urea nitrogen [Mass/Vol] 41.0 mg/dL Critically high 7.0-18.0 [facility] Comment on above: Performed By: #### B SWITCHBOARD MECHANIC, CMP, CRP ####[facility] Aeamdhehrb[address] [place], [place] [address]Dr. Farhat Leal Urea nitrogen/Creatinine [Mass ratio] 30.1 mg/mg Normal [facility] Comment on above: Performed By: #### B SWITCHBOARD MECHANIC, CMP, CRP ####[facility] Jwnxujtwzf[address] [place], [place] [address]Dr. Farhat Leal PROTIMEon 11-24-2021 INR Coag (PPP) [Relative time] 2.20 {INR} Normal [facility] Comment on above: Performed By: #### P T ####[facility] [address] [place] [address]Dr. Farhat eLal INR GUIDELINES SEE BELOW Normal The [facility] Comment on above: Result Comment: MALINA RED INR: 2.0 - 3.0 CONDITIONS NOT LISTED BELOW 2.5 - 3.5 FOR PROSTHETIC HEART VALVE REPLACEMENT 2.5 - 3.5 RECURRENT THROMBOSIS Performed By: #### P T ####[facility] Xcwwvmatow[address] [place], [place] [address]Dr. Farhat Leal PT Coag (PPP) [Time] 22.6 s Critically high 9.0-11.6 [facility] Comment on above: Performed By: #### P T ####[facility] [address]qftls[address] [place], [place] [address]Dr. Farhat Leal SED RATE TELLERGREN 2021 SED RATE 80 mm/hr Critically high <=20 The [facility] Comment on above: Performed By: #### S EDR ####[facility] Emlriusyjp[address] [place], [place] [address]Dr. Farhat Leal BLOOD CULTURE ID PANELon A. baumannii Not detected Normal NOT DETECTED The [facility] Comment on above: Performed By: #### B CID2 ####[facility] Edibqxnope[address] [place], [place] [address]Dr. Farhat Leal Bacteriodes fragilis Not detected Normal NOT DETECTED The [facility] Comment on above: Performed By: #### B CID2 ####[facility] Nwlfypuond[address] [place], [place] [address]Dr. Farhat Leal BCID CONTROLS PASSED Normal The [facility] Comment on above: Performed By: #### B CID2 ####[facility] Fyxgzlnkzs[address] [place], [place] [address]Dr. Farhat Leal BCIDBTHD BLOOD CULTURE BOTTLE INFORMATION Normal [facility] Comment on above: Performed By: #### B CID2 ####[facility] Beg[address] [place] [id number]. Yilorri Leal BCIDHD1 ANTIMICROBIAL RESISTANCE GENES Normal [facility] Comment on above: Performed By: #### B CID2 ####[facility] [address] [place] [address]Dr. Yilan Leal BCIDHD2 SEE BELOW Normal [facility] Comment on above: Result Comment: Note : Antimicrobial resitance can occur via multiple mechanisms. A Not Detected result for the [employer] antomicrobial resistance gene assays does not indicate antimicrobial susceptibility. Subculturing is required for species identification and susceptibility testing of isolates. Performed By: #### B CID2 ####[facility] Korofmvydg[address] [place], [place] [address]Dr. Yilorri Leal BCIDHD3 Positive Normal [facility] Comment on above: Performed By: #### B CID2 ####[facility] Ooziadrpsw[address] [place], [place] [address]Dr. Yilorri Leal BCIDHD4 Negative Normal [facility] Comment on above: Performed By: #### B CID2 ####[facility] [address]ugzwh[address] [place], [place] [address]Dr. Yilorri Leal BCIDHD5 YEAST Normal [facility] Comment on above: Performed By: #### B CID2 ####[facility] Dbgzysjgpd[address] [place], [place] [address]Dr. Yilan Leal Bottle Set: Set 1 Normal [facility] Comment on above: Performed By: #### B CID2 ####[facility] [address]hlkocacnf[address] [place], [place] [address]Dr. Yilan Leal Bottle: Aerobic Normal [facility] Comment on above: Performed By: #### B CID2 ####[facility] Pxboabetey[address] [place], [place] [address]Dr. Yilan Leal C. neoformans/gattii Not detected Normal NOT DETECTED [facility] Comment on above: Performed By: #### B CID2 ####[facility] Viufrezwix[address] [place], [place] [address]Dr. Yilorri Leal Disha albicans Not detected Normal NOT DETECTED [facility] Comment on above: Performed By: #### B CID2 ####[facility] [address]qx[address] [place] [address]Dr. Yilan Leal Disha auris Not detected Normal NOT DETECTED The [facility] Comment on above: Performed By: #### B CID2 ####[facility] Juzitowmrw[address] [place] [address]Dr. Yilan Leal Disha glabrata Not detected Normal NOT DETECTED [facility] Comment on above: Performed By: #### B CID2 ####[facility] Sjyimmttmp[address] [place], [place] [address]Dr. Yilorri Leal Disha Krusei Not detected Normal NOT DETECTED The [facility] Comment on above: Performed By: #### B CID2 ####[facility] Luixafcoho[address] [place], [place] [address]Dr. Yilorri Leal Disha Parapsilosis Not detected Normal NOT DETECTED [facility] Comment on above: Performed By: #### B CID2 ####[facility] Gxvdokzvfs[address] [place], [place] [address]Dr. Yilorri Leal Disha Tropicalis Not detected Normal NOT DETECTED [facility] Comment on above: Performed By: #### B CID2 ####[facility] Puacnslemy[address] [place], [place] [address]Dr. Farhat Leal CTX-M Resistant Gene Not Applicable Normal NOT DETECTE D [facility] Comment on above: Performed By: #### B CID2 ####[facility] Syeggzowux[address] [place], [place] [address]Dr. Yilorri Leal E. Cloacae complex Not detected Normal NOT DETECTED [facility] Comment on above: Performed By: #### B CID2 ####[facility] Wujlahjbck[address] [place], [place] [address]Dr. Yilan Leal E. faecalis Not detected Normal NOT DETECTED The [facility] Comment on above: Performed By: #### B CID2 ####[facility] Qltjxgrkrt[address] [place], [place] [address]Dr. Yilorri Leal E. faecium Not detected Normal NOT DETECTED The [facility] Comment on above: Performed By: #### B CID2 ####[facility] L[address]evaqma[address] [place] [address]Dr. Farhat Leal Enterobacteriaceae Not detected Normal NOT DETECTED [facility] Comment on above: Performed By: #### B CID2 ####[facility] Pdkebtjwmr[address] [place], [place] [address]Dr. Farhat Leal Escherichia coli Not detected Normal NOT DETECTED [facility] Comment on above: Performed By: #### B CID2 ####[facility] Fuaxuvmjfk[address] [place], [place] [address]Dr. Farhat Leal H. influenzae Not detected Normal NOT DETECTED The [facility] Comment on above: Performed By: #### B CID2 ####[facility] Usoilwjxma[address] [place], [place] [address]Dr. Farhat Leal IMP Resistant Gene Not Applicable Normal NOT DETECTED [facility] Comment on above: Performed By: #### B CID2 ####[facility] Seqztkxuqr[address] [place], [place] [address]Dr. Farhat Leal K. oxytoca Not detected Normal NOT DETECTED The [facility] Comment on above: Performed By: #### B CID2 ####[facility] Musghftnhx[address] [place], [place] [address]Dr. Madelynlorri Leal K. pneumoniae Not detected Normal NOT DETECTED The [facility] Comment on above: Performed By: #### B CID2 ####[facility] Xrdqvkaavp[address] [place], [place] [address]Dr. Farhat Leal Klebsiella aerogenes Not detected Normal NOT DETECTED [facility] Comment on above: Performed By: #### B CID2 ####[facility] [address]cfykjpayo[address] [place], [place] [address]Dr. Farhat Leal KPC Resistant Gene Not Applicable Normal NOT DETECTED [facility] Comment on above: Performed By: #### B CID2 ####[facility] Qpyoxwglho[address] [place], [place] [address]Dr. Farhat Leal List. monocytogenes Not detected Normal NOT DETECTED [facility] Comment on above: Performed By: #### B CID2 ####[facility] Czrvvhkhop[address] [place], [place] [address]Dr. Farhat Leal Mcr-1 Resistant Gene Not Applicable Normal NOT DETECTE D [facility] Comment on above: Performed By: #### B CID2 ####[facility] Fgtnxwkubf[address] [place], [place] [address]Dr. Farhat Leal mecA/C Not Applicable Normal NOT DETECTED The [facility] Comment on above: Performed By: #### B CID2 ####[facility] Eykcgklnol[address] [place], [place] [address]Dr. Farhat Leal mecA/C MREJ Detected Abnormal NOT DETECTED The [facility] Comment on above: Performed By: #### B CID2 ####[facility] Eeomfloxco02[address] [place], [place] [address]Dr. Farhat Leal N. meningitidis Not detected Normal NOT DETECTED The [facility] Comment on above: Performed By: #### B CID2 ####[facility] Zuzajxvdju[address] [place], [place] [address]Dr. Farhat Leal NDM Resistant Gene Not Applicable Normal NOT DETECTED [facility] Comment on above: Performed By: #### B CID2 ####[facility] Dixkvofsxu[address] [place], [place] [address]Dr. Madelynlorri Elvis Oxa-48-like Not Applicable Normal NOT DETECTED The [facility] Comment on above: Performed By: #### B CID2 ####[facility] Goqudiferl[address] [place], [place] [address]Dr. Farhat Leal Proteus Not detected Normal NOT DETECTED The [facility] Comment on above: Performed By: #### B CID2 ####[facility] Czlblyzvme404[address] [place], [place] [address]Dr. Farhat Leal Pseud. aeruginosa Not detected Normal NOT DETECTED [facility] Comment on above: Performed By: #### B CID2 ####[facility] Ikoqelqsbb[address] [place], [place] [address]Dr. Farhat Leal S. maltophilia Not detected Normal NOT DETECTED [facility] Comment on above: Performed By: #### B CID2 ####[facility] Kgvotswmmc995[address] [place], [place] [address]Dr. Farhat Leal Salmonella Not detected Normal NOT DETECTED The [facility] Comment on above: Performed By: #### B CID2 ####[facility] Ejvxwvrnzf[address] [place], [place] [address]Dr. Farhat Leal Seratia marcescens Not detected Normal NOT DETECTED [facility] Comment on above: Performed By: #### B CID2 ####[facility] Sqpsrrxkyj[address] [place], [place] [address]Dr. Farhat Leal Site: Rt Hand Normal [facility] Comment on above: Performed By: #### B CID2 ####[facility] Bnsjzweewt[address] [place], [place] [address]Dr. Farhat Leal Staph. aureus Detected Abnormal NOT DETECTED The [facility] Comment on above: Performed By: #### B CID2 ####[facility] Bayhodrnhp[address] [place], [place] [address]Dr. aFrhat Leal Staph. epidermidis Not detected Normal NOT DETECTED [facility] Comment on above: Performed By: #### B CID2 ####[facility] Lzujytnaey[address] [place], [place] [address]Dr. Farhat Leal Staph. lugdunensis Not detected Normal NOT DETECTED [facility] Comment on above: Performed By: #### B CID2 ####[facility] Acfwkyrcqr[address] [place], [place] [address]Dr. Farhat Leal Staphylococcus Detected Abnormal NOT DETECTED The [facility] Comment on above: Performed By: #### B CID2 ####[facility] Uilswtixtk[address] [place], [place] [address]Dr. Farhat Leal Strep. agalactiae Not detected Normal NOT DETECTED [facility] Comment on above: Performed By: #### B CID2 ####[facility] Cbiyhuybit8[address] [place], [place] [address]Dr. Farhat Leal Strep. pneumoniae Not detected Normal NOT DETECTED [facility] Comment on above: Performed By: #### B CID2 ####[facility] Qtkmxvunqd033[address] [place], [place] [address]Dr. Farhat Leal Strep. pyogenes Not detected Normal NOT DETECTED The [facility] Comment on above: Performed By: #### B CID2 ####[facility] Tyhmnmeiwg[address] [place] [address]Dr. Farhat Leal Streptococcus Not detected Normal NOT DETECTED The [facility] Comment on above: Performed By: #### B CID2 ####[facility] Cmbblbseow[address] [place] [address]Dr. Farhat Leal Teodoro/B Resist. Gene Not Applicable Normal NOT DETECTED [facility] Comment on above: Performed By: #### B CID2 ####[facility] Abzwxbhsjo[address] [place] [address]Dr. Madelynlorri Leal VIM Resistant Gene Not Applicable Normal NOT DETECTED [facility] Comment on above: Performed By: #### B CID2 ####[facility] Sihhknccrb[address] [place], [place] [address]Dr. Madelynlorri Leal BNPon 11-23-2021 Natriuretic peptide B (Bld) [Mass/Vol] 97740.0 pg/mL Critically high <=1,800.0 [facility] Comment on above: Performed By: #### C MP, CMADM, BNP ####[facility] Tkpqkehvng[address] [place], [place] [address]Dr. Farhat Leal CARDIAC AMANDA ADMITon 022 CK [Catalytic activity/Vol] 41 U/L Normal 39-308 [facility] Comment on above: Performed By: #### C MP, CMADM, BNP ####[facility] Nsbdkmfhly[address] [place], [place] [address]Dr. Farhat Elvis CK.MB [Mass/Vol] 0.98 ng/mL Normal <=3.60 The [facility] Comment on above: Performed By: #### C MP, CMADM, BNP ####[facility] [address]wyfzepa[address] [place], [place] [address]Dr. Farhat Elvis HSTROP 30.1 pg/mL Normal 4.0-76.1 [facility] Comment on above: Result Comment: CUT- OFF POINTS HAVE BEEN ESTABLISHED BASED ON THE FOURTH UNIVERSAL DEFINITIONS OF MYOCARDIALINFARCTION. THE UPPER REFERENCE LIMIT (URL) OF TROPONIN, DEFINED THE 99TH PERCENTILE OFcTnI DISTRIBUTION IN A REFERENCE POPULATION, HAS BEEN CONFIRMED THE DECISION THRESHOLDFOR CT DIAGNOSIS. Performed By: #### C MP, CMADM, BNP ####[facility] Hsx[address]jisnct[address] [place] [address]Dr. Farhat Leal VALERIA 160 ng/mL Critically high 16-96 [facility] Comment on above: Performed By: #### C MP, CMADM, BNP ####[facility] K[address]kswcxwp[address] [place] [address]Dr. Farhat Leal CBC AUTO DIFFon 11-23-2021 BASO # 0.0 103/ul Normal 0.0-0.1 [facility] Comment on above: Performed By: #### C BC ####[facility] Cfcazheizp[address] [place], [place] [address]Dr. Farhat Leal Basophils/100 WBC (Bld) 0.2 % Normal 0.2-2.0 [facility] Comment on above: Performed By: #### C BC ####[facility] Rmiqxtyxyh72[address] [place], [place] [address]Dr. Farhat eLal EO # 0.0 103/ul Normal 0.0-0.7 [facility] Comment on above: Performed By: #### C BC ####[facility] Lxvourgzbg[address] [place], [place] [address]Dr. Farhat Leal Eosinophils/100 WBC (Bld) 0.1 % Critically low 0.9-7.0 [facility] Comment on above: Performed By: #### C BC ####[facility] Pezbwwyabg[address] [place], [place] [address]Dr. Farhat Leal Erythrocyte distribution width (RBC) [Ratio] 13.4 % Normal 11.0-15.0 [facility] Comment on above: Performed By: #### C BC ####[facility] Hioihkhrbf[address] [place], [place] [address]Dr. Farhat Leal Hematocrit (Bld) [Volume fraction] 31.6 % Critically low 42.0-54.0 [facility] Comment on above: Performed By: #### C BC ####[facility] Vqzxligbbm[address] [place], [place] [address]Dr. Farhat Leal Hemoglobin (Bld) [Mass/Vol] 10.4 g/dL Critically low 14.0-18.0 [facility] Comment on above: Performed By: #### C BC ####[facility] E[address]avr[address] [place] [address]DrSkylar Leal IG # 0.11 10e3/ul Critically high 0.00-0.03 [facility] Comment on above: Performed By: #### C BC ####[facility] Sijmcrsekq[address] [place], [place] [address]DrSkylar Leal IG % 0.7 % Critically high 0.0-0.5 [facility] Comment on above: Performed By: #### C BC ####[facility] Jwinkcrxtu[address] [place], [place] [address]DrSkylar Leal LYMPH # 0.5 103/ul Critically low 1.2-3.8 The [facility] Comment on above: Performed By: #### C BC ####[facility] Hvfpheakdg[address] [place], [place] [address]DrSkylar Leal Lymphocytes/100 WBC (Bld) 2.8 % Critically low 20.5-60.0 [facility] Comment on above: Performed By: #### C BC ####[facility] C[address]rnurdltt[address] [place], [place] [address]DrSkylar Leal MANUAL DIFF REQ NO Normal The [facility] Comment on above: Performed By: #### C BC ####[facility] Fshhctltjt[address] [place], [place] [address]DrSkylar Leal MCH (RBC) [Entitic mass] 29.8 pg Normal 25.9-34.0 [facility] Comment on above: Performed By: #### C BC ####[facility] Sulpsjrnlj[address] [place], [place] [address]DrSkylar Leal MCHC (RBC) [Mass/Vol] 32.9 g/dL Normal 29.9-35.2 [facility] Comment on above: Performed By: #### C BC ####[facility] Wvoeclrxir[address] [place], [place] [address]DrSkylar Leal MCV (RBC) [Entitic vol] 90.5 fL Normal 80.0-94.0 [facility] Comment on above: Performed By: #### C BC ####[facility] [address] [place] [address]DrSkylar Farhat Leal MONO # 1.3 103/ul Critically high 0.3-0.8 [facility] Comment on above: Performed By: #### C BC ####[facility] H[address]ublybdx[address] [place] [address]DrSkylar Leal Monocytes/100 WBC (Bld) 8.3 % Normal 1.7-12.0 [facility] Comment on above: Performed By: #### C BC ####[facility] Zkfxoeakml506[address] [place], [place] [address]Dr. Madelynlorri Leal NEUT # 13.9 103/ul Critically high 1.4-6.5 The [facility] Comment on above: Performed By: #### C BC ####[facility] Udjtneymjy[address] [place], [place] [address]Dr. Farhat Leal Neutrophils/100 WBC (Bld) 87.9 % Critically high 43.0-75.0 [facility] Comment on above: Performed By: #### C BC ####[facility] R[address]kqkfse[address] [place], [place] [address]Dr. Farhat Leal Platelet mean volume (Bld) [Entitic vol] 9.3 fL Critically low 9.5-13.5 [facility] Comment on above: Performed By: #### C BC ####[facility] Ictbglsqku[address] [place], [place] [address]Dr. Farhat Leal PLT 390 103/ul Normal 150-450 [facility] Comment on above: Performed By: #### C BC ####[facility] Clbfxxpyxr[address] [place], [place] [address]DrSkylar Leal RBC 3.49 106/ul Critically low 4.70-6.10 [facility] Comment on above: Performed By: #### C BC ####[facility] [address]wnzfqdg[address] [place], [place] [address]DrSkylar Leal WBC 15.9 103/ul Critically high 4.0-11.0 The [facility] Comment on above: Performed By: #### C BC ####[facility] [address] [place], [place] [address]Da. Farhat Leal CT HEAD WO CONon 11-23-2021 CT HEAD WO CON Normal [facility] CULTURE BLOODon 11-23-2021 Microscopic examination of blood, culture Culture Observations: NO GROWTH AT 5 DAYS. Normal [facility] Comment on above: Performed By: #### B LDCX2 ####[facility] [address] [place], [place] [address]Nv. Farhat Leal Covid-19 PCR (CVDTB)on SARS-CoV-2 (COVID-19) RNA JOSH+probe Ql (Unsp spec) Not detected Normal NOT DETECTED [facility] Comment on above: Result Comment: When [...] for this test is supported by the Margie of Health and Human Service's declaration that [...] be used). Performed By: #### C VDTBH ####[facility] [address] [place], [place] [address]Vw. Farhat Leal LACTATE/LACTIC ACIDon 2021 Lactate [Moles/Vol] 1.3 mmol/L Normal 0.4-1.9 [facility] Comment on above: Performed By: #### L ACT ####[facility] [address] [place] [address]Dr. Farhat Leal Lactate [Moles/Vol] 1.3 mmol/L Normal 0.4-1.9 [facility] Comment on above: Performed By: #### L ACT ####[facility] [address] [place] [address]Dr. Farhat Leal POINT OF CARE GLUCOSEon Glucose [Mass/Vol] 252 mg/dL Critically high 74-106 [facility] Comment on above: Performed By: #### P OCGLUC ####[facility] [address] [place] [address]Dr. Farhat Leal PROF 14(COMP METB)on 022 Albumin [Mass/Vol] 1.6 g/dL Critically low 3.4-5.[address] [facility] Comment on above: Performed By: #### C MP, CMADM, BNP ####[facility] [address] [place] [address]Dr. Farhat Leal Albumin/Globulin [Mass ratio] 0.4 {ratio} Normal [facility] Comment on above: Performed By: #### C MP, CMADM, BNP ####[facility] Mobmybefkt[address] [place] [address]Dr. Farhat Leal ALP [Catalytic activity/Vol] 98 U/L Normal 46-116 [facility] Comment on above: Performed By: #### C MP, CMADM, BNP ####[facility] Er[address] [place] [address]Dr. Farhat Leal ALT [Catalytic activity/Vol] 52 U/L Normal 16-63 [facility] Comment on above: Performed By: #### C MP, CMADM, BNP ####[facility] Wewoofllaz[address] [place] [address]Dr. Farhat Leal Anion gap [Moles/Vol] 9.8 mmol/L Normal [facility] Comment on above: Performed By: #### C MP, CMADM, BNP ####[facility] K[address] [place] [address]Dr. Farhat Leal AST [Catalytic activity/Vol] 122 U/L Critically high 15-37 [facility] Comment on above: Performed By: #### C MP, CMADM, BNP ####[facility] [address] [place] [address]Dr. Farhat Leal Bilirubin [Mass/Vol] 0.7 mg/dL Normal 0.2-1.0 [facility] Comment on above: Performed By: #### C MP, CMADM, BNP ####[facility] Vxbfxbcxah[address] [place] [address]Dr. Farhat Leal Calcium [Mass/Vol] 8.6 mg/dL Normal 8.5-10.1 [facility] Comment on above: Performed By: #### C MP, CMADM, BNP ####[facility] Xt[address]ft[address] [place], [place] [address]Dr. Farhat Leal Chloride [Moles/Vol] 95 mmol/L Critically low 98-107 [facility] Comment on above: Performed By: #### C MP, CMADM, BNP ####[facility] Jarcpnfsl[address] [place], [place] [address]Dr. Farhat Leal CO2 [Moles/Vol] 29.6 mmol/L Normal 21.0-32.0 [facility] Comment on above: Performed By: #### C MP, CMADM, BNP ####[facility] [address] [place] [address]Dr. Farhat Leal Creatinine [Mass/Vol] 1.49 mg/dL Critically high 0.70-1.30 [facility] Comment on above: Performed By: #### C MP, CMADM, BNP ####[facility] [address] [place] [address]Dr. Farhat Leal EGFR-AF RUSSIAN 55 mL/min/1.73m2 Critically low >=60 [facility] Comment on above: Performed By: #### C MP, CMADM, BNP ####[facility] Vsukxlhwbo[address] [place], [place] [address]Dr. Farhat Leal EGFR-NON AF RUSSIAN 46 mL/min/1.73m2 Critically low >=60 [facility] [place] [facility] Comment on above: Performed By: #### C MP, CMADM, BNP ####[facility] [address]sohb[address]ymx[address] [place] [address]Dr. Farhat Leal Globulin (S) [Mass/Vol] 4.3 g/dL Normal [facility] Comment on above: Performed By: #### C MP, CMADM, BNP ####[facility] [address]ax[address] [place] [address]Dr. Farhat Leal Glucose [Mass/Vol] 213 mg/dL Critically high 74-106 [facility] Comment on above: Performed By: #### C MP, CMADM, BNP ####[facility] [address]me[address] [place] [address]Dr. Farhat Leal Potassium [Moles/Vol] 4.4 mmol/L Normal 3.5-5.1 [facility] Comment on above: Performed By: #### C MP, CMADM, BNP ####[facility] Etbcwsgkir[address] [place], [place] [address]Dr. Farhat Leal Protein [Mass/Vol] 5.9 g/dL Critically low 6.4-8.2 [facility] Comment on above: Performed By: #### C MP, CMADM, BNP ####[facility] Rxvzozfwmz[address] [place], [place] [address]Dr. Farhta Leal Sodium [Moles/Vol] 130 mmol/L Critically low 136-145 [facility] Comment on above: Performed By: #### C MP, CMADM, BNP ####[facility] Qepvnfymyy[address] [place], [place] [address]Dr. Farhat Leal Urea nitrogen [Mass/Vol] 46.0 mg/dL Critically high 7.0-18.0 [facility] Comment on above: Performed By: #### C MP, CMADM, BNP ####[facility] X[address]itapws[address] [place], [place] [address]Dr. Farhat Leal Urea nitrogen/Creatinine [Mass ratio] 30.9 mg/mg Normal [facility] Comment on above: Performed By: #### C MP, CMADM, BNP ####[facility] [address] [place] [id number]. Farhat Leal PROTIMEon 11-23-2021 INR Coag (PPP) [Relative time] 2.55 {INR} Normal [facility] Comment on above: Performed By: #### P TT, PT ####[facility] Ifg[address]irkax[address] [place] [address]Dr. Farhat Leal INR GUIDELINES SEE BELOW Normal [facility] Comment on above: Result Comment: MALINA RED INR: 2.0 - 3.0 CONDITIONS NOT LISTED BELOW 2.5 - 3.5 FOR PROSTHETIC HEART VALVE REPLACEMENT 2.5 - 3.5 RECURRENT THROMBOSIS Performed By: #### P TT, PT ####[facility] [address] [place], [place] [address]Dr. Farhat Leal PT Coag (PPP) [Time] 25.9 s Critically high 9.0-11.6 [facility] Comment on above: Performed By: #### P TT, PT ####[facility] Dxrmxljiea[address] [place], [place] [address]Dr. Farhat Leal PTTon 11-23-2021 aPTT Coag (Bld) [Time] 39.9 s Critically high 22.3-36. 2 [facility] Comment on above: Performed By: #### P TT, PT ####[facility] Fjfhjcphkx[address] [place], [place] [address]Dr. Farhat Leal XR CHEST 1 Von 11-23-2021 XR CHEST 1 V Normal [facility] XR HEEL RT 2Von 11-23-2021 XR HEEL RT 2V Normal [facility] XR FOOT RT MIN 3 VIEWSon XR FOOT RT MIN 3 VIEWS Normal [facility] US ARTERY LEG RTon 2 US ARTERY LEG RT Normal [facility] CBC AUTO DIFFon 09-24-2021 BASO # 0.1 103/ul Normal 0.0-0.1 [facility] Comment on above: Performed By: #### C BC ####[facility] Wvbzfhbzsj[address] [place], [place] [address]Dr. Farhat Leal Basophils/100 WBC (Bld) 0.7 % Normal 0.2-2.0 [facility] Comment on above: Performed By: #### C BC ####[facility] Az[address]hw[address] [place] [address]Dr. Farhat Leal EO # 0.3 103/ul Normal 0.0-0.7 [facility] Comment on above: Performed By: #### C BC ####[facility] Svicwznvic[address] [place], [place] [address]Dr. Farhat Leal Eosinophils/100 WBC (Bld) 3.9 % Normal 0.9-7.0 [facility] Comment on above: Performed By: #### C BC ####[facility] Iojjxtvxep[address] [place], [place] [address]Dr. Farhat Leal Erythrocyte distribution width (RBC) [Ratio] 12.6 % Normal 11.0-15.0 [facility] Comment on above: Performed By: #### C BC ####[facility] Dhyiqjvimm[address] [place], [place] [address]Dr. Farhat Leal Hematocrit (Bld) [Volume fraction] 38.9 % Critically low 42.0-54.0 [facility] Comment on above: Performed By: #### C BC ####[facility] Sostlyikxm[address] [place], [place] [address]Dr. Farhat Leal Hemoglobin (Bld) [Mass/Vol] 12.8 g/dL Critically low 14.0-18.0 [facility] Comment on above: Performed By: #### C BC ####[facility] [address] [place], [place] [address]Dr. Farhat Leal IG # 0.10 10e3/ul Critically high 0.00-0.03 [facility] Comment on above: Performed By: #### C BC ####[facility] Nnkhqcetmc[address] [place], [place] [address]Dr. Farhat Leal IG % 1.2 % Critically high 0.0-0.5 [facility] Comment on above: Performed By: #### C BC ####[facility] [address]avrpz[address] [place], [place] [address]Dr. Farhat Leal LYMPH # 2.1 103/ul Normal 1.2-3.8 [facility] Comment on above: Performed By: #### C BC ####[facility] [address]ccq[address] [place] [address]Dr. Farhat Leal Lymphocytes/100 WBC (Bld) 25.9 % Normal 20.5-60.0 [facility] Comment on above: Performed By: #### C BC ####[facility] [address] [place] [address]DrSkylar Leal MANUAL DIFF REQ NO Normal [facility] Comment on above: Performed By: #### C BC ####[facility] [address]zqyv[address] [place] [address]Dr. Farhat Leal MCH (RBC) [Entitic mass] 31.1 pg Normal 25.9-34.0 [facility] Comment on above: Performed By: #### C BC ####[facility] Weiclishcn[address] [place], [place] [address]Dr. Farhat Leal MCHC (RBC) [Mass/Vol] 32.9 g/dL Normal 29.9-35.2 [facility] Comment on above: Performed By: #### C BC ####[facility] Hmeigxxswm[address] [place], [place] [address]DrSkylar Leal MCV (RBC) [Entitic vol] 94.6 fL Critically high 80.0-94.0 [facility] Comment on above: Performed By: #### C BC ####[facility] [address]ypcsywc[address] [place], [place] [address]Dr. Farhat Leal MONO # 1.2 103/ul Critically high 0.3-0.8 [facility] Comment on above: Performed By: #### C BC ####[facility] [address]apsxtewh[address] [place], [place] [address]DrSkylar Leal Monocytes/100 WBC (Bld) 14.1 % Critically high 1.7-12.0 [facility] Comment on above: Performed By: #### C BC ####[facility] Gspyvevkyn[address] [place], [place] [address]Dr. Farhat Leal NEUT # 4.4 103/ul Normal 1.4-6.5 [facility] Comment on above: Performed By: #### C BC ####[facility] [address] [place] [address]DrSkylar Leal Neutrophils/100 WBC (Bld) 54.2 % Normal 43.0-75.0 [facility] Comment on above: Performed By: #### C BC ####[facility] K[address]vup[address] [place] [address]Dr. Farhat Leal Platelet mean volume (Bld) [Entitic vol] 9.9 fL Normal 9.5-13.5 [facility] Comment on above: Performed By: #### C BC ####[facility] Hzytkatqpe43[address] [place], [place] [address]Dr. Farhat Leal PLT 224 103/ul Normal 150-450 [facility] Comment on above: Performed By: #### C BC ####[facility] Fxhwbbwgpl[address] [place], [place] [address]DrSkylar Leal RBC 4.11 106/ul Critically low 4.70-6.10 [facility] Comment on above: Performed By: #### C BC ####[facility] Sjtflrrcxh[address] [place], [place] [address]DrSkylar Leal WBC 8.2 103/ul Normal 4.0-11.0 [facility] Comment on above: Performed By: #### C BC ####[facility] Ozhelzaafo[address] [place], [place] [address]DrSkylar Leal PROF CHEM 8 (BAS METB)on Anion gap [Moles/Vol] 9.6 mmol/L Normal [facility] Comment on above: Performed By: #### B MP ####[facility] Cxnbztjybq[address] [place], [place] [address]DrSkylar Leal Calcium [Mass/Vol] 8.6 mg/dL Normal 8.5-10.1 [facility] Comment on above: Performed By: #### B MP ####[facility] Ontegmmylr[address] [place] [address]DrSkylar Leal Chloride [Moles/Vol] 94 mmol/L Critically low 98-107 [facility] Comment on above: Performed By: #### B MP ####[facility] Ynbdbdgyzq188[address] [place], [place] [address]Dr. Farhat Leal CO2 [Moles/Vol] 28.1 mmol/L Normal 21.0-32.0 [facility] Comment on above: Performed By: #### B MP ####[facility] Adtewklbpw[address] [place], [place] [address]Dr. Farhat Leal Creatinine [Mass/Vol] 1.91 mg/dL Critically high 0.70-1.30 [facility] Comment on above: Performed By: #### B MP ####[facility] Lksmcvwvcd[address] [place], [place] [address]Dr. Farhat Leal EGFR-AF RUSSIAN 42 mL/min/1.73m2 Critically low >=60 [facility] Comment on above: Performed By: #### B MP ####[facility] Viyhwlikzu[address] [place], [place] [address]Dr. Farhat Leal EGFR-NON AF RUSSIAN 34 mL/min/1.73m2 Critically low >=60 [facility] Comment on above: Performed By: #### B MP ####[facility] Lmkwurpksi[address] [place], [place] [address]Dr. Farhat Leal Glucose [Mass/Vol] 314 mg/dL Critically high 74-106 [facility] Comment on above: Performed By: #### B MP ####[facility] Qpluroxeln[address] [place], [place] [address]DrSkylar Leal Potassium [Moles/Vol] 4.7 mmol/L Normal 3.5-5.1 [facility] Comment on above: Performed By: #### B MP ####[facility] Nlaoxelqtx[address] [place], [place] [address]Dr. Farhat Leal Sodium [Moles/Vol] 127 mmol/L Critically low 136-145 [facility] Comment on above: Performed By: #### B MP ####[facility] Kzwjbnlopl[address] [place], [place] [address]DrSkylar Leal Urea nitrogen [Mass/Vol] 79.0 mg/dL Critically high 7.0-18.0 [facility] Comment on above: Result Comment: repe ated Performed By: #### B MP ####[facility] Glzatqgbdl[address] [place], [place] [address]Dr. Farhat Elvis Urea nitrogen/Creatinine [Mass ratio] 41.4 mg/mg Normal [facility] Comment on above: Performed By: #### B MP ####[facility] Qlaqqhwunu[address] [place], [place] [address]Dr. Farhat Elvis PTT HEPARIN MONITORon 2021 aPTT Coag (Bld) [Time] 42.7 s Normal 39.5-54.[address] [facility] Comment on above: Performed By: #### P TTHEP ####[facility] Aswfcydyfl[address] [place], [place] [address]Dr. Farhat Leal aPTT Coag (Bld) [Time] 56.7 s Critically high 39.5-54. 2 [facility] Comment on above: Performed By: #### P TTHEP ####[facility] [address]ogarkcgr[address] [place], [place] [address]Dr. Farhat Elvis CBC AUTO DIFFon 09-23-2021 BASO # 0.1 103/ul Normal 0.0-0.1 [facility] Comment on above: Performed By: #### C BC ####[facility] Vswzfrvshl[address] [place], [place] [address]Dr. Farhat Leal Basophils/100 WBC (Bld) 0.6 % Normal 0.2-2.0 [facility] Comment on above: Performed By: #### C BC ####[facility] Hmzdhxxodx[address] [place], [place] [address]Dr. Farhat Leal EO # 0.2 103/ul Normal 0.0-0.7 [facility] Comment on above: Performed By: #### C BC ####[facility] Fayhspbhew[address] [place], [place] [address]Dr. Farhat Leal Eosinophils/100 WBC (Bld) 2.6 % Normal 0.9-7.0 [facility] Comment on above: Performed By: #### C BC ####[facility] B[address]xwfd[address] [place] [address]Dr. Farhat Leal Erythrocyte distribution width (RBC) [Ratio] 12.4 % Normal 11.0-15.0 [facility] Comment on above: Performed By: #### C BC ####[facility] [address]qhmevptpu27[address] [place] [address]Dr. Farhat Leal Hematocrit (Bld) [Volume fraction] 38.4 % Critically low 42.0-54.0 [facility] Comment on above: Performed By: #### C BC ####[facility] Pyuowymhvq[address] [place], [place] [address]Dr. Farhat Leal Hemoglobin (Bld) [Mass/Vol] 12.8 g/dL Critically low 14.0-18.0 [facility] Comment on above: Performed By: #### C BC ####[facility] Dlikyqrywg[address] [place], [place] [address]DrSkylar Farhat Leal IG # 0.06 10e3/ul Critically high 0.00-0.03 [facility] Comment on above: Performed By: #### C BC ####[facility] Evhfetjfuf[address] [place], [place] [address]DrSkylar Farhat Leal IG % 0.8 % Critically high 0.0-0.5 [facility] Comment on above: Performed By: #### C BC ####[facility] Zyigoigkhx[address] [place], [place] [address]DrSkylar Farhat Elvis LYMPH # 1.5 103/ul Normal 1.2-3.8 [facility] Comment on above: Performed By: #### C BC ####[facility] Miokpwpjig[address] [place], [place] [address]DrSkylra Farhat Elvis Lymphocytes/100 WBC (Bld) 19.7 % Critically low 20.5-60.0 [facility] Comment on above: Performed By: #### C BC ####[facility] Iygznuzbag[address] [place], [place] [address]DrSkylar Farhat Elvis MANUAL DIFF REQ NO Normal [facility] Comment on above: Performed By: #### C BC ####[facility] [address]mlpx[address] [place] [address]DrSkylar Leal MCH (RBC) [Entitic mass] 31.6 pg Normal 25.9-34.0 [facility] Comment on above: Performed By: #### C BC ####[facility] Neygvurvbz280[address] [place] [address]DrSkylar Leal MCHC (RBC) [Mass/Vol] 33.3 g/dL Normal 29.9-35.2 [facility] Comment on above: Performed By: #### C BC ####[facility] Wuefakqqnf[address] [place] [address]DrSkylar Leal MCV (RBC) [Entitic vol] 94.8 fL Critically high 80.0-94.0 [facility] Comment on above: Performed By: #### C BC ####[facility] Zxymdwskxc346[address] [place], [place] [address]DrSkylar Leal MONO # 1.0 103/ul Critically high 0.3-0.8 [facility] Comment on above: Performed By: #### C BC ####[facility] [address]vftlpgxkd[address] [place], [place] [address]DrSkylar Leal Monocytes/100 WBC (Bld) 13.0 % Critically high 1.7-12.0 [facility] Comment on above: Performed By: #### C BC ####[facility] Yfhwwwpnze148[address] [place], [place] [address]DrSkylar Leal NEUT # 4.9 103/ul Normal 1.4-6.5 [facility] Comment on above: Performed By: #### C BC ####[facility] [address]qfjozsj74[address] [place], [place] [address]DrSkylar Leal Neutrophils/100 WBC (Bld) 63.3 % Normal 43.0-75.0 [facility] Comment on above: Performed By: #### C BC ####[facility] Pjwfeuwwpd[address] [place], [place] [address]DrSkylar Leal Platelet mean volume (Bld) [Entitic vol] 10.7 fL Normal 9.5-13.5 [facility] Comment on above: Performed By: #### C BC ####[facility] [address]trramjkjr[address] [place] [address]Dr. Farhat Leal PLT 205 103/ul Normal 150-450 [facility] Comment on above: Performed By: #### C BC ####[facility] Kljbduuyxy[address] [place] [address]Dr. Farhat Leal RBC 4.05 106/ul Critically low 4.70-6.10 [facility] Comment on above: Performed By: #### C BC ####[facility] Aeavlcwdwe[address] [place] [address]Dr. Farhat Leal WBC 7.7 103/ul Normal 4.0-11.0 [facility] Comment on above: Performed By: #### C BC ####[facility] Wnlfwxrssj[address] [place], [place] [address]Dr. Farhat Leal PROF CHEM 8 (BAS METB)on Anion gap [Moles/Vol] 15.5 mmol/L Normal [facility] Comment on above: Performed By: #### B MP ####[facility] Jsavwycgqr323[address] [place], [place] [address]Dr. Farhat Leal Calcium [Mass/Vol] 9.1 mg/dL Normal 8.5-10.1 [facility] Comment on above: Performed By: #### B MP ####[facility] Bsgpzatzbo[address] [place], [place] [address]Dr. Farhat Leal Chloride [Moles/Vol] 92 mmol/L Critically low 98-107 [facility] Comment on above: Performed By: #### B MP ####[facility] Sxrzhcljll[address] [place], [place] [address]Dr. Farhat Leal CO2 [Moles/Vol] 28.5 mmol/L Normal 21.0-32.0 [facility] Comment on above: Performed By: #### B MP ####[facility] Hopamwcgrv[address] [place], [place] [address]Dr. Farhat Leal Creatinine [Mass/Vol] 1.84 mg/dL Critically high 0.70-1.30 [facility] Comment on above: Performed By: #### B MP ####[facility] Eimmgmgafh[address] [place], [place] [address]Dr. Farhat Leal EGFR-AF RUSSIAN 44 mL/min/1.73m2 Critically low >=60 [facility] Comment on above: Performed By: #### B MP ####[facility] Rbfsqlmcfj7[address] [place], [place] [address]Dr. Farhat Leal EGFR-NON AF RUSSIAN 36 mL/min/1.73m2 Critically low >=60 [facility] Comment on above: Performed By: #### B MP ####[facility] Fmcclzjhyj[address] [place], [place] [address]Dr. Farhat Leal Glucose [Mass/Vol] 267 mg/dL Critically high 74-106 [facility] Comment on above: Performed By: #### B MP ####[facility] Ujbwwhjkxv3[address] [place], [place] [address]Dr. Farhat Leal Potassium [Moles/Vol] 5.0 mmol/L Normal 3.5-5.1 [facility] Comment on above: Performed By: #### B MP ####[facility] Whuicxpjcl[address] [place], [place] [address]Dr. Farhat Leal Sodium [Moles/Vol] 131 mmol/L Critically low 136-145 [facility] Comment on above: Performed By: #### B MP ####[facility] Oqgdjxhput[address] [place], [place] [address]Dr. Farhat Leal Urea nitrogen [Mass/Vol] 76.0 mg/dL Critically high 7.0-18.0 [facility] Comment on above: Performed By: #### B MP ####[facility] Vwtccsizkx[address] [place], [place] [address]Dr. Farhat Leal Urea nitrogen/Creatinine [Mass ratio] 41.3 mg/mg Normal [facility] Comment on above: Performed By: #### B MP ####[facility] Wghoennghj[address] [place], [place] [address]Dr. Farhat Leal PTT HEPARIN MONITORon 2021 aPTT Coag (Bld) [Time] 57.2 s Critically high 39.5-54. 2 [facility] Comment on above: Performed By: #### P TTHEP ####[facility] [address]bfpaiyg[address] [place], [place] [address]Dr. Farhat Elvis aPTT Coag (Bld) [Time] 74.7 s Critically high 39.5-54. 2 [facility] Comment on above: Result Comment: repe ated Performed By: #### P TTHEP ####[facility] Enixovypvg[address] [place], [place] [address]Dr. Madelynlorri Elvis aPTT Coag (Bld) [Time] 45.5 s Normal 39.5-54.[address] [facility] Comment on above: Performed By: #### P TTHEP ####[facility] [address]oyzsuzq[address] [place], [place] [address]Dr. Madelynlorri Elvis CBC AUTO DIFFon 09-22-2021 BASO # 0.1 103/ul Normal 0.0-0.1 [facility] Comment on above: Performed By: #### C BC ####[facility] F[address]omxphlos[address] [place], [place] [address]Dr. Farhat Leal Basophils/100 WBC (Bld) 0.7 % Normal 0.2-2.0 [facility] Comment on above: Performed By: #### C BC ####[facility] Oebofkerna[address] [place], [place] [address]Dr. Farhat Leal EO # 0.3 103/ul Normal 0.0-0.7 [facility] Comment on above: Performed By: #### C BC ####[facility] Nbibuqhhxg[address] [place], [place] [address]Dr. Farhat Leal Eosinophils/100 WBC (Bld) 3.2 % Normal 0.9-7.0 [facility] Comment on above: Performed By: #### C BC ####[facility] Meswsjegvm[address] [place], [place] [address]Dr. Farhat Leal Erythrocyte distribution width (RBC) [Ratio] 12.5 % Normal 11.0-15.0 [facility] Comment on above: Performed By: #### C BC ####[facility] [address]iq[address] [place] [address]Dr. Farhat Leal Hematocrit (Bld) [Volume fraction] 40.5 % Critically low 42.0-54.0 [facility] Comment on above: Performed By: #### C BC ####[facility] [address]ffz[address] [place] [address]DrSkylar Leal Hemoglobin (Bld) [Mass/Vol] 13.4 g/dL Critically low 14.0-18.0 [facility] Comment on above: Performed By: #### C BC ####[facility] X[address]vxroqvpt[address] [place], [place] [address]DrSkylar Leal IG # 0.11 10e3/ul Critically high 0.00-0.03 [facility] Comment on above: Performed By: #### C BC ####[facility] Iouhvizxel[address] [place], [place] [address]DrSkylar Leal IG % 1.3 % Critically high 0.0-0.5 [facility] Comment on above: Performed By: #### C BC ####[facility] Zrlcffyinc[address] [place], [place] [address]DrSkylar Leal LYMPH # 1.7 103/ul Normal 1.2-3.8 [facility] Comment on above: Performed By: #### C BC ####[facility] Ilrxidjxnc42[address] [place], [place] [address]DrSkylar Leal Lymphocytes/100 WBC (Bld) 19.6 % Critically low 20.5-60.0 [facility] Comment on above: Performed By: #### C BC ####[facility] Wllpdlyzvg8[address] [place], [place] [address]DrSkylar Leal MANUAL DIFF REQ NO Normal [facility] Comment on above: Performed By: #### C BC ####[facility] [address]jricse[address] [place] [address]DrSkylar Leal MCH (RBC) [Entitic mass] 31.1 pg Normal 25.9-34.0 [facility] Comment on above: Performed By: #### C BC ####[facility] Bzwqslcdgz[address] [place] [address]Dr. Madelynlorri Elvis MCHC (RBC) [Mass/Vol] 33.1 g/dL Normal 29.9-35.2 [facility] Comment on above: Performed By: #### C BC ####[facility] Gfjkbnjjpm[address] [place] [address]DrSkylar Leal MCV (RBC) [Entitic vol] 94.0 fL Normal 80.0-94.0 [facility] Comment on above: Performed By: #### C BC ####[facility] Ftoqvorare18[address] [place] [address]DrSkylar Leal MONO # 1.1 103/ul Critically high 0.3-0.8 [facility] Comment on above: Performed By: #### C BC ####[facility] Xllgqsdbdd605[address] [place], [place] [address]Dr. Farhat Leal Monocytes/100 WBC (Bld) 12.7 % Critically high 1.7-12.0 [facility] Comment on above: Performed By: #### C BC ####[facility] Lldbbztuux819[address] [place], [place] [address]DrSkylar Leal NEUT # 5.3 103/ul Normal 1.4-6.5 [facility] Comment on above: Performed By: #### C BC ####[facility] Myeohnmyfz446[address] [place], [place] [address]Dr. Farhat Leal Neutrophils/100 WBC (Bld) 62.5 % Normal 43.0-75.0 [facility] Comment on above: Performed By: #### C BC ####[facility] Roxjxjkqby135[address] [place], [place] [address]DrSkylar Leal Platelet mean volume (Bld) [Entitic vol] 10.1 fL Normal 9.5-13.5 [facility] Comment on above: Performed By: #### C BC ####[facility] Girgjybrny368[address] [place], [place] [address]Dr. Farhat Leal PLT 220 103/ul Normal 150-450 [facility] Comment on above: Performed By: #### C BC ####[facility] V[address]ryybxj[address] [place] [address]Dr. Farhat Leal RBC 4.31 106/ul Critically low 4.70-6.10 [facility] Comment on above: Performed By: #### C BC ####[facility] Vowctrffsb[address] [place] [address]Dr. Farhat Leal WBC 8.4 103/ul Normal 4.0-11.0 [facility] Comment on above: Performed By: #### C BC ####[facility] Hhknsenofk[address] [place] [address]Dr. Farhat Leal PROF CHEM 8 (BAS METB)on Anion gap [Moles/Vol] 15.5 mmol/L Normal [facility] Comment on above: Performed By: #### B MP ####[facility] Ykxiyxvuxw840[address] [place], [place] [address]Dr. Farhat Leal Calcium [Mass/Vol] 8.9 mg/dL Normal 8.5-10.1 [facility] Comment on above: Performed By: #### B MP ####[facility] Zcayhpwzsx277[address] [place], [place] [address]DrSkylar Leal Chloride [Moles/Vol] 92 mmol/L Critically low 98-107 [facility] Comment on above: Performed By: #### B MP ####[facility] Xmjybmjblc056[address] [place], [place] [address]DrSkylar Leal CO2 [Moles/Vol] 25.7 mmol/L Normal 21.0-32.0 The [facility] Comment on above: Performed By: #### B MP ####[facility] Fvdijgeufb0416[address] [place], [place] [address]Dr. Farhat Leal Creatinine [Mass/Vol] 1.85 mg/dL Critically high 0.70-1.30 [facility] Comment on above: Performed By: #### B MP ####[facility] Vpjhrwlhyn070[address] [place], [place] [address]Dr. Farhat Leal EGFR-AF RUSSIAN 43 mL/min/1.73m2 Critically low >=60 [facility] Comment on above: Performed By: #### B MP ####[facility] Pvgtgnfqfq212[address] [place], [place] [address]Dr. Farhat Elvis EGFR-NON AF RUSSIAN 36 mL/min/1.73m2 Critically low >=60 [facility] Comment on above: Performed By: #### B MP ####[facility] Zmkawdnhkm772[address] [place], [place] [address]Dr. Farhat Leal Glucose [Mass/Vol] 410 mg/dL Critically high 74-106 [facility] Comment on above: Performed By: #### B MP ####[facility] Mvljiutnwa106[address] [place], [place] [address]Dr. Farhat Leal Potassium [Moles/Vol] 5.2 mmol/L Critically high 3.5-5.1 [facility] Comment on above: Performed By: #### B MP ####[facility] Agsgysysmp0015[address] [place], [place] [address]Dr. Farhat Leal Sodium [Moles/Vol] 128 mmol/L Critically low 136-145 Th [facility] Comment on above: Performed By: #### B MP ####[facility] Wwygzppwuy669[address] [place], [place] [address]Dr. Farhat Leal Urea nitrogen [Mass/Vol] 75.0 mg/dL Critically high 7.0-18.0 [facility] Comment on above: Performed By: #### B MP ####[facility] Wnuxvyfcde124703 [address] [place], [place] [address]Dr. Farhat Leal Urea nitrogen/Creatinine [Mass ratio] 40.5 mg/mg Normal [facility] Comment on above: Performed By: #### B MP ####[facility] Hsymdseqyf27350[address] [place], [place] [address]Dr. Farhat Leal PTT HEPARIN MONITORon 2021 aPTT Coag (Bld) [Time] 51.2 s Normal 39.5-54.2 [facility] Comment on above: Performed By: #### P TTHEP ####[facility] Xdtuwddfda359[address] [place], [place] [address]Dr. Farhat Leal aPTT Coag (Bld) [Time] 55.6 s Critically high 39.5-54. 2 [facility] Comment on above: Performed By: #### P TTHEP ####[facility] Bbglkwsprv940[address] [place], [place] [address]Dr. Farhat Leal aPTT Coag (Bld) [Time] 46.1 s Normal 39.5-54.[address] [facility] Comment on above: Performed By: #### P TTHEP ####[facility] Ubghhoesdf424[address] [place], [place] [address]Dr. Farhat Elvis aPTT Coag (Bld) [Time] 53.8 s Normal 39.5-54.[address] [facility] Comment on above: Performed By: #### P TTHEP ####[facility] Hoptkzknuz156[address] [place], [place] [address]Dr. Farhat Elvis CBC AUTO DIFFon 09-21-2021 BASO # 0.1 103/ul Normal 0.0-0.1 [facility] Comment on above: Performed By: #### C BC ####[facility] Uzhjjawlxi7099[address] [place], [place] [address]Dr. Farhat Elvis Basophils/100 WBC (Bld) 0.8 % Normal 0.2-2.0 [facility] Comment on above: Performed By: #### C BC ####[facility] Avruydcupb450[address] [place], [place] [address]Dr. Farhat Elvis EO # 0.4 103/ul Normal 0.0-0.7 [facility] Comment on above: Performed By: #### C BC ####[facility] Yyzvlbjmxz805[address] [place], [place] [address]Dr. Farhat Elvis Eosinophils/100 WBC (Bld) 4.3 % Normal 0.9-7.0 [facility] Comment on above: Performed By: #### C BC ####[facility] Dbywjmkpsi867[address] [place], [place] [address]Dr. Farhat Elvis Erythrocyte distribution width (RBC) [Ratio] 12.5 % Normal 11.0-15.0 [facility] Comment on above: Performed By: #### C BC ####[facility] [address]lsiztwnvf[address] [place] [address]DrSkylar Leal Hematocrit (Bld) [Volume fraction] 40.8 % Critically low 42.0-54.0 [facility] Comment on above: Performed By: #### C BC ####[facility] Wxswsmtcjq88[address] [place] [address]DrSkylar Leal Hemoglobin (Bld) [Mass/Vol] 13.5 g/dL Critically low 14.0-18.0 [facility] Comment on above: Performed By: #### C BC ####[facility] Jffddfkvyk115[address] [place], [place] [address]DrSkylar Leal IG # 0.10 10e3/ul Critically high 0.00-0.03 [facility] Comment on above: Performed By: #### C BC ####[facility] Arsapsoten8[address] [place], [place] [address]DrSkylar Leal IG % 1.2 % Critically high 0.0-0.5 [facility] Comment on above: Performed By: #### C BC ####[facility] Vofizijdzn[address] [place], [place] [address]DrSkylar Leal LYMPH # 1.3 103/ul Normal 1.2-3.8 [facility] Comment on above: Performed By: #### C BC ####[facility] Xzwdluiqkp256[address] [place], [place] [address]DrSkylar Leal Lymphocytes/100 WBC (Bld) 15.4 % Critically low 20.5-60.0 [facility] Comment on above: Performed By: #### C BC ####[facility] Fiiewpzaos738[address] [place], [place] [address]DrSkylar Leal MANUAL DIFF REQ NO Normal [facility] Comment on above: Performed By: #### C BC ####[facility] Zrkiwhlgyp935[address] [place], [place] [address]DrSkylar Leal MCH (RBC) [Entitic mass] 31.0 pg Normal 25.9-34.0 [facility] Comment on above: Performed By: #### C BC ####[facility] Evrkhlawhw[address] [place] [address]DrSkylar Leal MCHC (RBC) [Mass/Vol] 33.1 g/dL Normal 29.9-35.2 [facility] Comment on above: Performed By: #### C BC ####[facility] Zbpkwoofvn8[address] [place] [address]DrSkylar Leal MCV (RBC) [Entitic vol] 93.8 fL Normal 80.0-94.0 [facility] Comment on above: Performed By: #### C BC ####[facility] Gctztueocs712[address] [place], [place] [address]DrSkylar Leal MONO # 1.2 103/ul Critically high 0.3-0.8 [facility] Comment on above: Performed By: #### C BC ####[facility] Qteciuyaaa005[address] [place], [place] [address]DrSkylar Leal Monocytes/100 WBC (Bld) 13.6 % Critically high 1.7-12.0 [facility] Comment on above: Performed By: #### C BC ####[facility] Ntamxvasnp[address] [place], [place] [address]DrSkylar Leal NEUT # 5.5 103/ul Normal 1.4-6.5 [facility] Comment on above: Performed By: #### C BC ####[facility] Keoehymdqr438[address] [place], [place] [address]DrSkylar Leal Neutrophils/100 WBC (Bld) 64.7 % Normal 43.0-75.0 [facility] Comment on above: Performed By: #### C BC ####[facility] Qejtxzjrck44[address] [place], [place] [address]DrSkylar Leal Platelet mean volume (Bld) [Entitic vol] 9.8 fL Normal 9.5-13.5 [facility] Comment on above: Performed By: #### C BC ####[facility] Dztyortqnb399[address] [place], [place] [address]DrSkylar Leal PLT 206 103/ul Normal 150-450 [facility] Comment on above: Performed By: #### C BC ####[facility] Sxtoxpft[address] [place] [id number]. Farhat Leal RBC 4.35 106/ul Critically low 4.70-6.10 [facility] Comment on above: Performed By: #### C BC ####[facility] Morxeglxdb[address] [place] [id number] Leal WBC 8.4 103/ul Normal 4.0-11.0 [facility] Comment on above: Performed By: #### C BC ####[facility] Ugfcsmfmvp608[address] [place], [place] [address]DrSkylar Leal PROF CHEM 8 (BAS METB)on Anion gap [Moles/Vol] 12.3 mmol/L Normal [facility] Comment on above: Performed By: #### B MP ####[facility] Nytrsatlgu686[address] [place], [place] [address]DrSkylar Leal Calcium [Mass/Vol] 8.6 mg/dL Normal 8.5-10.1 [facility] Comment on above: Performed By: #### B MP ####[facility] Pryvrvwarp[address] [place], [place] [address]DrSkylar Leal Chloride [Moles/Vol] 94 mmol/L Critically low 98-107 [facility] Comment on above: Performed By: #### B MP ####[facility] Fjvdpbhsxh689[address] [place], [place] [address]DrSkylar Leal CO2 [Moles/Vol] 30.8 mmol/L Normal 21.0-32.0 [facility] Comment on above: Performed By: #### B MP ####[facility] Jngapjawdv953[address] [place], [place] [address]DrSkylar Leal Creatinine [Mass/Vol] 1.99 mg/dL Critically high 0.70-1.30 [facility] Comment on above: Performed By: #### B MP ####[facility] Fenfqjhetd513[address] [place], [place] [address]DrSkylar Leal EGFR-AF RUSSIAN 40 mL/min/1.73m2 Critically low >=60 [facility] Comment on above: Performed By: #### B MP ####[facility] Xiwgsbvvsn466[address] [place], [place] [address]Dr. Farhat Leal EGFR-NON AF RUSSIAN 33 mL/min/1.73m2 Critically low >=60 [facility] Comment on above: Performed By: #### B MP ####[facility] Oanzdthztn098[address] [place], [place] [address]Dr. Farhat Leal Glucose [Mass/Vol] 264 mg/dL Critically high 74-106 T [facility] Comment on above: Performed By: #### B MP ####[facility] Jqrvoahhcv25220[address] [place], [place] [address]Dr. Farhat Leal Potassium [Moles/Vol] 5.1 mmol/L Normal 3.5-5.1 [facility] Comment on above: Performed By: #### B MP ####[facility] Xxljtjwyna748[address] [place], [place] [address]Dr. Farhat Leal Sodium [Moles/Vol] 132 mmol/L Critically low 136-145 [facility] Comment on above: Performed By: #### B MP ####[facility] Fucnzwdjzm75230[address] [place], [place] [address]Dr. Farhat Leal Urea nitrogen [Mass/Vol] 72.0 mg/dL Critically high 7.0-18.0 [facility] Comment on above: Performed By: #### B MP ####[facility] Zepygmewkv515[address] [place], [place] [address]Dr. Farhat Leal Urea nitrogen/Creatinine [Mass ratio] 36.2 mg/mg Normal [facility] Comment on above: Performed By: #### B MP ####[facility] Lmhavulugq9[address] [place], [place] [address]Dr. Farhat Leal PTT HEPARIN MONITORon 2021 aPTT Coag (Bld) [Time] 45.3 s Normal 39.5-54.2 [facility] Comment on above: Performed By: #### P TTHEP ####[facility] Kughhnygch205[address] [place], [place] [address]Dr. Farhat Leal aPTT Coag (Bld) [Time] 68.0 s Critically high 39.5-54. 2 [facility] Comment on above: Performed By: #### P TTHEP ####[facility] Kycjuoxvqh766[address] [place], [place] [address]Dr. Farhat Leal aPTT Coag (Bld) [Time] 69.4 s Critically high 39.5-54. 2 [facility] Comment on above: Performed By: #### P TTHEP ####[facility] Yhfumzhirt095[address] [place], [place] [address]Dr. Farhat Leal aPTT Coag (Bld) [Time] 53.5 s Normal 39.5-54.[address] [facility] Comment on above: Performed By: #### P TTHEP ####[facility] Jjxpcmzaer085[address] [place], [place] [address]Dr. Farhat Leal aPTT Coag (Bld) [Time] 126.9 s Critically high 39.5-54. 2 [facility] Comment on above: Performed By: #### P TTHEP ####[facility] Flfwlpulpu743[address] [place], [place] [address]Dr. Farhat Leal CBC AUTO DIFFon 09-20-2021 BASO # 0.1 103/ul Normal 0.0-0.1 [facility] Comment on above: Performed By: #### C BC ####[facility] Ofmzofphqr99020[address] [place], [place] [address]Dr. Farhat Leal Basophils/100 WBC (Bld) 0.7 % Normal 0.2-2.0 [facility] Comment on above: Performed By: #### C BC ####[facility] Hloqiarijs309[address] [place], [place] [address]Dr. Farhat Leal EO # 0.2 103/ul Normal 0.0-0.7 [facility] Comment on above: Performed By: #### C BC ####[facility] Jebqzpourj995[address] [place], [place] [address]Dr. Farhat Leal Eosinophils/100 WBC (Bld) 3.2 % Normal 0.9-7.0 [facility] Comment on above: Performed By: #### C BC ####[facility] [address]ogqbunw[address] [place] [address]Dr. Farhat Leal Erythrocyte distribution width (RBC) [Ratio] 12.4 % Normal 11.0-15.0 [facility] Comment on above: Performed By: #### C BC ####[facility] Hpzmlsxtpx578[address] [place], [place] [address]Dr. Farhat Leal Hematocrit (Bld) [Volume fraction] 40.1 % Critically low 42.0-54.0 [facility] Comment on above: Performed By: #### C BC ####[facility] Csjwdodfsd703[address] [place], [place] [address]Dr. Farhat Leal Hemoglobin (Bld) [Mass/Vol] 13.4 g/dL Critically low 14.0-18.0 [facility] Comment on above: Performed By: #### C BC ####[facility] Zkekjozfrp339[address] [place], [place] [address]Dr. Farhat Leal IG # 0.08 10e3/ul Critically high 0.00-0.03 [facility] Comment on above: Performed By: #### C BC ####[facility] Kxudcjhkcj244[address] [place], [place] [address]Dr. Farhat Leal IG % 1.1 % Critically high 0.0-0.5 [facility] Comment on above: Performed By: #### C BC ####[facility] Pvoczrlgaw017[address] [place], [place] [address]DrSkylar Farhat Leal LYMPH # 1.3 103/ul Normal 1.2-3.8 [facility] Comment on above: Performed By: #### C BC ####[facility] Acenbdgzss659[address] [place], [place] [address]DrSkylar Farhat Leal Lymphocytes/100 WBC (Bld) 17.3 % Critically low 20.5-60.0 [facility] Comment on above: Performed By: #### C BC ####[facility] Xlyrpvolwq732[address] [place], [place] [address]Dr. Madelynlorri Leal MANUAL DIFF REQ NO Normal [facility] Comment on above: Performed By: #### C BC ####[facility] Cr[address]qmpzpg[address] [place] [address]Dr. Farhat Elvis MCH (RBC) [Entitic mass] 31.2 pg Normal 25.9-34.0 [facility] Comment on above: Performed By: #### C BC ####[facility] Xopzphctvq66[address] [place], [place] [address]Dr. Farhat Elvis MCHC (RBC) [Mass/Vol] 33.4 g/dL Normal 29.9-35.2 [facility] Comment on above: Performed By: #### C BC ####[facility] Ovdigtwniw267[address] [place], [place] [address]Dr. Madelynlorri Leal MCV (RBC) [Entitic vol] 93.3 fL Normal 80.0-94.0 [facility] Comment on above: Performed By: #### C BC ####[facility] Tevoiykdmy[address] [place], [place] [address]Dr. Farhat Leal MONO # 0.9 103/ul Critically high 0.3-0.8 [facility] Comment on above: Performed By: #### C BC ####[facility] Smeeiuhfma989[address] [place], [place] [address]Dr. Farhat Leal Monocytes/100 WBC (Bld) 12.4 % Critically high 1.7-12.0 [facility] Comment on above: Performed By: #### C BC ####[facility] Gkikonidri468[address] [place], [place] [address]DrSkylar Leal NEUT # 4.7 103/ul Normal 1.4-6.5 [facility] Comment on above: Performed By: #### C BC ####[facility] Jpldasptay0016[address] [place], [place] [address]DrSkylar Leal Neutrophils/100 WBC (Bld) 65.3 % Normal 43.0-75.0 [facility] Comment on above: Performed By: #### C BC ####[facility] Aaygjwlmdw13[address] [place], [place] [address]Dr. Farhat Leal Platelet mean volume (Bld) [Entitic vol] 9.9 fL Normal 9.5-13.5 [facility] Comment on above: Performed By: #### C BC ####[facility] [address]nhqgzq[address] [place] [address]Dr. Farhat Leal PLT 180 103/ul Normal 150-450 [facility] Comment on above: Performed By: #### C BC ####[facility] S[address]pfeeowk4[address] [place] [address]Dr. Farhat Leal RBC 4.30 106/ul Critically low 4.70-6.10 [facility] Comment on above: Performed By: #### C BC ####[facility] Pidhvbxewe584[address] [place], [place] [address]Dr. Farhat Leal WBC 7.2 103/ul Normal 4.0-11.0 [facility] Comment on above: Performed By: #### C BC ####[facility] Bvxgotautn283[address] [place], [place] [address]Dr. Farhat Elvis PTT HEPARIN MONITORon 2021 aPTT Coag (Bld) [Time] 26.7 s Critically low 39.5-54.2 [facility] Comment on above: Performed By: #### P TTHEP ####[facility] Efhtrwdzzh[address] [place] [address]Dr. Farhat Elvis aPTT Coag (Bld) [Time] 121.0 s Critically high 39.5-54. 2 [facility] Comment on above: Performed By: #### P TTHEP ####[facility] Yjxozdhzgp[address] [place], [place] [address]Dr. Farhat Elvis aPTT Coag (Bld) [Time] 27.6 s Critically low 39.5-54.2 [facility] Comment on above: Performed By: #### P TTHEP ####[facility] Gvxgrhimgs433[address] [place], [place] [address]Dr. Farhat Elvis aPTT Coag (Bld) [Time] 139.0 s Critically high 39.5-54. 2 [facility] Comment on above: Performed By: #### P TTHEP ####[facility] [address]ctsyzu[address] [place] [address]Dr. Farhat Leal CBC AUTO DIFFon 09-19-2021 BASO # 0.0 103/ul Normal 0.0-0.1 [facility] Comment on above: Performed By: #### C BC ####[facility] Vvmzehtnrm[address]25[address] [place], [place] [address]Dr. Farhat Elvis Basophils/100 WBC (Bld) 0.5 % Normal 0.2-2.0 [facility] Comment on above: Performed By: #### C BC ####[facility] Gwugvapidu346[address] [place], [place] [address]Dr. Farhat Elvis EO # 0.2 103/ul Normal 0.0-0.7 [facility] Comment on above: Performed By: #### C BC ####[facility] Imfemhwaue[address] [place], [place] [address]Dr. Madelynlorri Leal Eosinophils/100 WBC (Bld) 2.6 % Normal 0.9-7.0 [facility] Comment on above: Performed By: #### C BC ####[facility] Hpubrpchyk059[address] [place], [place] [address]Dr. Farhat Leal Erythrocyte distribution width (RBC) [Ratio] 12.5 % Normal 11.0-15.0 [facility] Comment on above: Performed By: #### C BC ####[facility] Pxspqtdctw[address] [place], [place] [address]Dr. Farhat Leal Hematocrit (Bld) [Volume fraction] 39.2 % Critically low 42.0-54.0 [facility] Comment on above: Performed By: #### C BC ####[facility] Ftaldlvmna110[address] [place], [place] [address]Dr. Farhat Leal Hemoglobin (Bld) [Mass/Vol] 13.3 g/dL Critically low 14.0-18.0 [facility] Comment on above: Performed By: #### C BC ####[facility] Sawmvtavii924[address] [place], [place] [address]Dr. Farhat Leal IG # 0.08 10e3/ul Critically high 0.00-0.03 [facility] Comment on above: Performed By: #### C BC ####[facility] [address]zayepndx[address] [place] [address]DrSkylar Farhat Elvis IG % 0.9 % Critically high 0.0-0.5 [facility] Comment on above: Performed By: #### C BC ####[facility] Frkkfbkkvr[address] [place] [address]DrSkylar Farhat Elvis LYMPH # 1.5 103/ul Normal 1.2-3.8 [facility] Comment on above: Performed By: #### C BC ####[facility] Tgqcmqlmrr5995 [place] [address]DrSkylar Madelynlorri Leal Lymphocytes/100 WBC (Bld) 17.2 % Critically low 20.5-60.0 [facility] Comment on above: Performed By: #### C BC ####[facility] Wflxizjano[address] [place], [place] [address]DrSkylar Madelynlorri Leal MANUAL DIFF REQ NO Normal [facility] Comment on above: Performed By: #### C BC ####[facility] [address]vgcmbaead[address] [place] [address]Dr. Fahrat Elvis MCH (RBC) [Entitic mass] 31.7 pg Normal 25.9-34.0 [facility] Comment on above: Performed By: #### C BC ####[facility] Rbvsvncdtz8[address] [place] [address]DrSkylar Farhat Elvis MCHC (RBC) [Mass/Vol] 33.9 g/dL Normal 29.9-35.2 [facility] Comment on above: Performed By: #### C BC ####[facility] Cocdovlssl[address] [place] [address]DrSkylar Leal MCV (RBC) [Entitic vol] 93.3 fL Normal 80.0-94.0 [facility] Comment on above: Performed By: #### C BC ####[facility] Uvsfxpyfpk[address] [place], [place] [address]DrSkylar Leal MONO # 1.2 103/ul Critically high 0.3-0.8 [facility] Comment on above: Performed By: #### C BC ####[facility] [address]jcm[address]ytjhu[address] [place] [address]Dr. Farhat Leal Monocytes/100 WBC (Bld) 13.7 % Critically high 1.7-12.0 [facility] Comment on above: Performed By: #### C BC ####[facility] [address] [place] [address]Dr. Farhat Leal NEUT # 5.5 103/ul Normal 1.4-6.5 [facility] Comment on above: Performed By: #### C BC ####[facility] Yqqtb[address]zcsn[address] [place] [address]Dr. Farhat Leal Neutrophils/100 WBC (Bld) 65.1 % Normal 43.0-75.0 [facility] Comment on above: Performed By: #### C BC ####[facility] [address]kit[address] [place] [address]Dr. Farhat Leal Platelet mean volume (Bld) [Entitic vol] 9.6 fL Normal 9.5-13.5 [facility] Comment on above: Performed By: #### C BC ####[facility] P[address]ogtepxn[address] [place] [address]Dr. Farhat Leal PLT 163 103/ul Normal 150-450 [facility] Comment on above: Performed By: #### C BC ####[facility] Ofkjhrwlgt[address] [place] [address]Dr. Farhat Leal RBC 4.20 106/ul Critically low 4.70-6.10 [facility] Comment on above: Performed By: #### C BC ####[facility] R[address] [place] [phone]. Farhat Leal WBC 8.4 103/ul Normal 4.0-11.0 [facility] Comment on above: Performed By: #### C BC ####[facility] [address]ju[address] [place] [phone]. Farhat Leal POINT OF CARE GLUCOSEon 08- Glucose [Mass/Vol] 300 mg/dL Critically high 74-106 T he [facility] Comment on above: Performed By: #### P OCGLUC ####[facility] [address] [place], [place] [address]DrSkylar Leal POTASSIUMon 09-19-2021 Potassium [Moles/Vol] 4.9 mmol/L Normal 3.5-5.1 [facility] Comment on above: Performed By: #### K ####[facility] Qlpufrkv[address] [place], [place] [address]Dr. Farhat Leal PTT HEPARIN MONITORon 2021 aPTT Coag (Bld) [Time] 23.4 s Critically low 39.5-54.2 [facility] Comment on above: Result Comment: repe ated Performed By: #### P TTHEP ####[facility] [address]ljjvyg[address] [place], [place] [address]Dr. Farhat Leal aPTT Coag (Bld) [Time] 101.2 s Critically high 39.5-54. 2 [facility] Comment on above: Performed By: #### P TTHEP ####[facility] [address]pom[address]je[address] [place], [place] [address]Dr. Farhat Leal aPTT Coag (Bld) [Time] 81.0 s Critically high 39.5-54. 2 [facility] Comment on above: Result Comment: Test Repeated. Critical Value Verified Performed By: #### P TTHEP ####[facility] Tmynoieede[address] [place], [place] [address]DrSkylar Leal CBC AUTO DIFFon 09-18-2021 BASO # 0.0 103/ul Normal 0.0-0.1 [facility] Comment on above: Performed By: #### C BC ####[facility] Dedezshccq[address] [place], [place] [address]DrSkylar Leal Basophils/100 WBC (Bld) 0.4 % Normal 0.2-2.0 [facility] Comment on above: Performed By: #### C BC ####[facility] Bspcxc[address]ny[address] [place], [place] [address]DrSkylar Leal EO # 0.1 103/ul Normal 0.0-0.7 [facility] Comment on above: Performed By: #### C BC ####[facility] Ljqevntcsz[address] [place] [address]Dr. Farhat Leal Eosinophils/100 WBC (Bld) 0.8 % Critically low 0.9-7.0 [facility] Comment on above: Performed By: #### C BC ####[facility] Cycdcvqryi[address] [place], [place] [address]Dr. Farhat Leal Erythrocyte distribution width (RBC) [Ratio] 12.4 % Normal 11.0-15.0 [facility] Comment on above: Performed By: #### C BC ####[facility] Duvxpngkeo575[address] [place], [place] [address]Dr. Farhat Leal Hematocrit (Bld) [Volume fraction] 41.7 % Critically low 42.0-54.0 [facility] Comment on above: Performed By: #### C BC ####[facility] Avcgkctcnr[address] [place], [place] [address]Dr. Farhat Leal Hemoglobin (Bld) [Mass/Vol] 14.1 g/dL Normal 14.0-18.0 [facility] Comment on above: Performed By: #### C BC ####[facility] Sjozapmvyf[address] [place], [place] [address]Dr. Farhat Leal IG # 0.06 10e3/ul Critically high 0.00-0.03 The [facility] Comment on above: Performed By: #### C BC ####[facility] Gfxgloxlaa24[address] [place], [place] [address]Dr. Farhat Leal IG % 0.6 % Critically high 0.0-0.5 [facility] Comment on above: Performed By: #### C BC ####[facility] Ffrfwnuuue[address] [place], [place] [address]DrSkylar Joshilorri Leal LYMPH # 0.6 103/ul Critically low 1.2-3.8 The [facility] Comment on above: Performed By: #### C BC ####[facility] Ocbfjpjeju[address] [place], [place] [address]Dr. Farhat Leal Lymphocytes/100 WBC (Bld) 6.5 % Critically low 20.5-60.0 [facility] Comment on above: Performed By: #### C BC ####[facility] [address]ix[address] [place] [address]Dr. Farhat Leal MANUAL DIFF REQ NO Normal [facility] Comment on above: Performed By: #### C BC ####[facility] Zxywxcohqb[address] [place] [address]Dr. Farhat Leal MCH (RBC) [Entitic mass] 31.6 pg Normal 25.9-34.0 [facility] Comment on above: Performed By: #### C BC ####[facility] Olkhzvgriy[address] [place], [place] [address]Dr. Farhat Leal MCHC (RBC) [Mass/Vol] 33.8 g/dL Normal 29.9-35.2 [facility] Comment on above: Performed By: #### C BC ####[facility] Opbbbwjzpe[address] [place], [place] [address]Dr. Farhat Leal MCV (RBC) [Entitic vol] 93.5 fL Normal 80.0-94.0 [facility] Comment on above: Performed By: #### C BC ####[facility] Msvzrwerje[address] [place], [place] [address]Dr. Farhat Leal MONO # 1.0 103/ul Critically high 0.3-0.8 [facility] Comment on above: Performed By: #### C BC ####[facility] Mwxsjcrlrj[address] [place], [place] [address]Dr. Farhat Leal Monocytes/100 WBC (Bld) 10.4 % Normal 1.7-12.0 [facility] Comment on above: Performed By: #### C BC ####[facility] Yzqcgvrryq[address] [place], [place] [address]Dr. Farhat Leal NEUT # 7.8 103/ul Critically high 1.4-6.5 [facility] Comment on above: Performed By: #### C BC ####[facility] Xvkbakrlcu[address] [place], [place] [address]Dr. Farhat Leal Neutrophils/100 WBC (Bld) 81.3 % Critically high 43.0-75.0 [facility] Comment on above: Performed By: #### C BC ####[facility] [address]fbfdf[address] [place] [address]Dr. Farhat Leal Platelet mean volume (Bld) [Entitic vol] 9.9 fL Normal 9.5-13.5 [facility] Comment on above: Performed By: #### C BC ####[facility] Xzzllhgdby[address] [place] [address]Dr. Farhat Leal PLT 169 103/ul Normal 150-450 [facility] Comment on above: Performed By: #### C BC ####[facility] Oyrxruaikd[address] [place] [address]Dr. Farhat Leal RBC 4.46 106/ul Critically low 4.70-6.10 [facility] Comment on above: Performed By: #### C BC ####[facility] Vrjeuvjbwc[address] [place] [address]Dr. Farhat Leal WBC 9.6 103/ul Normal 4.0-11.0 [facility] Comment on above: Performed By: #### C BC ####[facility] I[address]ic[address]fvtl[address] [place] [address]Dr. Farhat Leal BASO # 0.0 103/ul Normal 0.0-0.1 [facility] Comment on above: Performed By: #### C BC ####[facility] Invy[address]qwxa[address] [place] [address]Dr. Farhat Leal Basophils/100 WBC (Bld) 0.4 % Normal 0.2-2.0 [facility] Comment on above: Performed By: #### C BC ####[facility] K[address]htppves4[address] [place] [address]Dr. Farhat Leal EO # 0.1 103/ul Normal 0.0-0.7 [facility] Comment on above: Performed By: #### C BC ####[facility] Glvpzjrrjc[address] [place], [place] [address]Dr. Farhat Leal Eosinophils/100 WBC (Bld) 1.1 % Normal 0.9-7.0 [facility] Comment on above: Performed By: #### C BC ####[facility] E[address]wpiueyo[address] [place] [address]Dr. Farhat Leal Erythrocyte distribution width (RBC) [Ratio] 12.6 % Normal 11.0-15.0 [facility] Comment on above: Performed By: #### C BC ####[facility] Absgxfhogp[address] [place] [address]Dr. Farhat Leal Hematocrit (Bld) [Volume fraction] 40.8 % Critically low 42.0-54.0 [facility] Comment on above: Performed By: #### C BC ####[facility] Crpbsglkmv[address] [place], [place] [address]Dr. Farhat Leal Hemoglobin (Bld) [Mass/Vol] 13.6 g/dL Critically low 14.0-18.0 [facility] Comment on above: Performed By: #### C BC ####[facility] Cxfrsfrzmm[address] [place], [place] [address]Dr. Farhat Leal IG # 0.08 10e3/ul Critically high 0.00-0.03 [facility] Comment on above: Performed By: #### C BC ####[facility] Jhxljkugxl8[address] [place], [place] [address]Dr. Farhat Leal IG % 0.9 % Critically high 0.0-0.5 [facility] Comment on above: Performed By: #### C BC ####[facility] U[address]rlm[address] [place] [address]Dr. Farhat Leal LYMPH # 0.8 103/ul Critically low 1.2-3.8 The [facility] Comment on above: Performed By: #### C BC ####[facility] [address] [place], [place] [address]Dr. Farhat Leal Lymphocytes/100 WBC (Bld) 8.7 % Critically low 20.5-60.0 [facility] Comment on above: Performed By: #### C BC ####[facility] Meyhntjexp[address] [place] [address]Dr. Farhat Elvis MANUAL DIFF REQ NO Normal [facility] Comment on above: Performed By: #### C BC ####[facility] Elqgpxcgmm[address] [place] [address]Dr. Farhat Leal MCH (RBC) [Entitic mass] 31.6 pg Normal 25.9-34.0 [facility] Comment on above: Performed By: #### C BC ####[facility] Okpvnyylfp[address] [place], [place] [address]Dr. Farhat Elvis MCHC (RBC) [Mass/Vol] 33.3 g/dL Normal 29.9-35.2 [facility] Comment on above: Performed By: #### C BC ####[facility] Pyhmfkzfek[address] [place], [place] [address]Dr. Farhat Elvis MCV (RBC) [Entitic vol] 94.9 fL Critically high 80.0-94.0 [facility] Comment on above: Performed By: #### C BC ####[facility] Rpaqfzesdc046[address] [place], [place] [address]Dr. Madelynlorri Leal MONO # 1.0 103/ul Critically high 0.3-0.8 [facility] Comment on above: Performed By: #### C BC ####[facility] Jhrsbytyfm20[address] [place], [place] [address]Dr. Madelynlorri Leal Monocytes/100 WBC (Bld) 11.3 % Normal 1.7-12.0 [facility] Comment on above: Performed By: #### C BC ####[facility] Igx[address]loecf[address] [place] [address]Dr. Farhat Leal NEUT # 6.9 103/ul Critically high 1.4-6.5 [facility] Comment on above: Performed By: #### C BC ####[facility] Gazezxxnsz[address] [place], [place] [address]Dr. Farhat Leal Neutrophils/100 WBC (Bld) 77.6 % Critically high 43.0-75.0 [facility] Comment on above: Performed By: #### C BC ####[facility] Cpainmyxwg4269 [place], [place] [address]Jb. Farhat Leal Platelet mean volume (Bld) [Entitic vol] 9.7 fL Normal 9.5-13.5 [facility] Comment on above: Performed By: #### C BC ####[facility] Thsvmaxnss2321 [place], [place] [address]Iw. Farhat Leal PLT 171 103/ul Normal 150-450 [facility] Comment on above: Performed By: #### C BC ####[facility] Eopigpdwta8519 [place], [place] [address]N[place]. Farhat Leal RBC 4.30 106/ul Critically low 4.70-6.10 [facility] Comment on above: Performed By: #### C BC ####[facility] Mwkdogcben3468 [place], [place] [address]Xe. Farhat Leal WBC 8.9 103/ul Normal 4.0-11.0 [facility] Comment on above: Performed By: #### C BC ####[facility] Ikolhulkyg4974 [place], [place] [address]Ey. Farhat Leal Covid-19 PCR [facility]on SARS-CoV-2 (COVID-19) RNA JOSH+probe Ql (Unsp spec) Not detected Normal NOT DETECTED [facility] Comment on above: Result Comment: When [...] for this test is supported by the Margie of Health and Human Service's declaration that [...] be used). Performed By: #### C VDTB ####[facility] Bgjtqnbved[address] [place] [address]Dr. Farhat Leal PROF 14(COMP METB)on 022 Albumin [Mass/Vol] 2.6 g/dL Critically low 3.4-5.[address] [facility] Comment on above: Performed By: #### C MP ####[facility] Zwplgbtrib7[address] [place] [address]Dr. Farhat Leal Albumin/Globulin [Mass ratio] 0.7 {ratio} Normal [facility] Comment on above: Performed By: #### C MP ####[facility] Owohnucswe[address] [place], [place] [address]Dr. Farhat Leal ALP [Catalytic activity/Vol] 88 U/L Normal 46-116 [facility] Comment on above: Performed By: #### C MP ####[facility] Xumiugvwvz[address] [place], [place] [address]Dr. Farhat Leal ALT [Catalytic activity/Vol] 15 U/L Critically low 16-63 [facility] Comment on above: Performed By: #### C MP ####[facility] Zzquifceax[address] [place], [place] [address]Dr. Farhat Leal Anion gap [Moles/Vol] 11.7 mmol/L Normal Th [facility] Comment on above: Performed By: #### C MP ####[facility] Ndzgtjnhtc8[address] [place], [place] [address]Dr. Farhat Leal AST [Catalytic activity/Vol] 25 U/L Normal 15-37 [facility] Comment on above: Performed By: #### C MP ####[facility] Bvukxpmwif[address] [place], [place] [address]Dr. Farhat Leal Bilirubin [Mass/Vol] 0.6 mg/dL Normal 0.2-1.0 [facility] Comment on above: Performed By: #### C MP ####[facility] Ceusobghco[address] [place] [address]Dr. Farhat Leal Calcium [Mass/Vol] 8.9 mg/dL Normal 8.5-10.1 [facility] Comment on above: Performed By: #### C MP ####[facility] Rheutpnuhi[address] [place] [phone]. Farhat Leal Chloride [Moles/Vol] 93 mmol/L Critically low 98-107 [facility] Comment on above: Performed By: #### C MP ####[facility] Fmhtnmwgjc4614 [place] [id number]. Farhat Leal CO2 [Moles/Vol] 28.9 mmol/L Normal 21.0-32.0 [facility] Comment on above: Performed By: #### C MP ####[facility] Kvfkwajerp4[address] [place] [address]Dr. Farhat Elvis Creatinine [Mass/Vol] 2.09 mg/dL Critically high 0.70-1.30 [facility] Comment on above: Performed By: #### C MP ####[facility] Gwadknaasx[address] [place] [address]Dr. Farhat Elvis EGFR-AF RUSSIAN 38 mL/min/1.73m2 Critically low >=60 [facility] Comment on above: Performed By: #### C MP ####[facility] Kyygplgpqx3[address] [place] [id number]. Farhat Elvis EGFR-NON AF RUSSIAN 31 mL/min/1.73m2 Critically low >=60 [facility] Comment on above: Performed By: #### C MP ####[facility] Dkeidkhvlo[address] [place] [address]Dr. Farhat Elvis Globulin (S) [Mass/Vol] 3.7 g/dL Normal [facility] Comment on above: Performed By: #### C MP ####[facility] Pxddatuogt9[address] [place] [phone]. Farhat Leal Glucose [Mass/Vol] 214 mg/dL Critically high 74-106 T [facility] Comment on above: Performed By: #### C MP ####[facility] Gxuuqpalyu4785 [place] [phone]. Farhat Leal Potassium [Moles/Vol] 5.6 mmol/L Critically high 3.5-5.1 [facility] Comment on above: Performed By: #### C MP ####[facility] Qvzerhmlcj9439 [place] [address]Dr. Farhat Leal Protein [Mass/Vol] 6.3 g/dL Critically low 6.4-8.2 Th [facility] Comment on above: Performed By: #### C MP ####[facility] Zfzopljske9[address] [place] [address]Dr. Farhat Leal Sodium [Moles/Vol] 128 mmol/L Critically low 136-145 Th [facility] Comment on above: Performed By: #### C MP ####[facility] Pacekvjeap35[address] [place] [address]Dr. Farhat Leal Urea nitrogen [Mass/Vol] 65.0 mg/dL Critically high 7.0-18.0 [facility] Comment on above: Performed By: #### C MP ####[facility] [address]yjguvkjzq98[address] [place], [place] [address]Dr. Farhat Leal Urea nitrogen/Creatinine [Mass ratio] 31.1 mg/mg Normal [facility] Comment on above: Performed By: #### C MP ####[facility] Giogwoyxar26[address] [place], [place] [address]Dr. Farhat Leal Albumin [Mass/Vol] 2.5 g/dL Critically low 3.4-5.0 Th [facility] Comment on above: Performed By: #### T MYRIAM, CMP ####[facility] Euxxyuawgn[address] [place], [place] [address]Dr. Farhat Leal Albumin/Globulin [Mass ratio] 0.7 {ratio} Normal [facility] Comment on above: Performed By: #### T SH, CMP ####[facility] Zpfgrakfve504[address] [place], [place] [address]Dr. Farhat Leal ALP [Catalytic activity/Vol] 83 U/L Normal 46-116 [facility] Comment on above: Performed By: #### T SH, CMP ####[facility] Kkrefgctwv[address] [place], [place] [address]Dr. Farhat Leal ALT [Catalytic activity/Vol] 16 U/L Normal 16-63 [facility] Comment on above: Performed By: #### T SH, CMP ####[facility] Osmqwpdvgp[address] [place], [place] [address]Dr. Farhat Leal Anion gap [Moles/Vol] 9.7 mmol/L Normal [facility] Comment on above: Performed By: #### T SH, CMP ####[facility] Qwmvxuigwm45[address] [place], [place] [address]Dr. Farhat Leal AST [Catalytic activity/Vol] 27 U/L Normal 15-37 [facility] Comment on above: Performed By: #### T SH, CMP ####[facility] Bimcsgvkoc[address] [place], [place] [address]Dr. Farhat Elvis Bilirubin [Mass/Vol] 0.5 mg/dL Normal 0.2-1.0 [facility] Comment on above: Performed By: #### T MYRIAM, CMP ####[facility] Obtiwfqygx247[address] [place], [place] [address]Dr. Farhat Leal Calcium [Mass/Vol] 8.8 mg/dL Normal 8.5-10.1 [facility] Comment on above: Performed By: #### T MYRIAM, CMP ####[facility] Wavwyohsgv[address] [place], [place] [address]Dr. Farhat Elvis Chloride [Moles/Vol] 95 mmol/L Critically low 98-107 [facility] Comment on above: Performed By: #### T MYRIAM, CMP ####[facility] Spruovgubr078[address] [place], [place] [address]Dr. Farhat Leal CO2 [Moles/Vol] 30.5 mmol/L Normal 21.0-32.0 The [facility] Comment on above: Performed By: #### T SH, CMP ####[facility] Evoagcqdsg[address] [place], [place] [address]Dr. Faraht Elvis Creatinine [Mass/Vol] 2.18 mg/dL Critically high 0.70-1.30 [facility] Comment on above: Performed By: #### T SH, CMP ####[facility] Rrpolfwqii036[address] [place], [place] [address]Dr. Farhat Leal EGFR-AF RUSSIAN 36 mL/min/1.73m2 Critically low >=60 [facility] Comment on above: Performed By: #### T MYRIAM, CMP ####[facility] Yliqdkzaah[address] [place], [place] [address]Dr. Farhat Leal EGFR-NON AF RUSSIAN 30 mL/min/1.73m2 Critically low >=60 [facility] Comment on above: Performed By: #### T MYRIAM, CMP ####[facility] Xtzzajpglg[address] [place], [place] [address]Dr. Farhat Leal Globulin (S) [Mass/Vol] 3.5 g/dL Normal [facility] Comment on above: Performed By: #### T MYRIAM, CMP ####[facility] Lxgvknsmzm42[address] [place], [place] [address]Dr. Farhat Leal Glucose [Mass/Vol] 141 mg/dL Critically high 74-106 T [facility] Comment on above: Performed By: #### T MYRIAM, CMP ####[facility] Ystmxgemeb180[address] [place], [place] [address]Dr. Farhat Leal Potassium [Moles/Vol] 5.2 mmol/L Critically high 3.5-5.1 [facility] Comment on above: Performed By: #### T MYRIAM, CMP ####[facility] Ivefjmiayr[address] [place], [place] [address]Dr. Farhat Leal Protein [Mass/Vol] 6.0 g/dL Critically low 6.4-8.2 [facility] Comment on above: Performed By: #### T MYRIAM, CMP ####[facility] Vdrmimuyqz[address] [place], [place] [address]Dr. Farhat Leal Sodium [Moles/Vol] 130 mmol/L Critically low 136-145 Th [facility] Comment on above: Performed By: #### T MYRIAM, CMP ####[facility] Urkbhjxldk[address] [place], [place] [address]Dr. Farhat Leal Urea nitrogen [Mass/Vol] 63.0 mg/dL Critically high 7.0-18.0 [facility] Comment on above: Performed By: #### T MYRIAM, CMP ####[facility] [address]zf[address]zl[address] [place] [address]Dr. Farhat Leal Urea nitrogen/Creatinine [Mass ratio] 28.9 mg/mg Normal [facility] Comment on above: Performed By: #### T SH, CMP ####[facility] [address]zuebz[address] [place] [address]Dr. Farhat Leal PROTIMEon 09-18-2021 INR Coag (PPP) [Relative time] 1.06 {INR} Normal [facility] Comment on above: Performed By: #### P T, PTT ####[facility] Ngibsquxug[address] [place] [address]Dr. Farhat Leal INR GUIDELINES SEE BELOW Normal [facility] Comment on above: Result Comment: MALINA RED INR: 2.0 - 3.0 CONDITIONS NOT LISTED BELOW 2.5 - 3.5 FOR PROSTHETIC HEART VALVE REPLACEMENT 2.5 - 3.5 RECURRENT THROMBOSIS Performed By: #### P T, PTT ####[facility] [address]vwkrrrepi[address] [place], [place] [address]Dr. Farhat Leal PT Coag (PPP) [Time] 11.4 s Normal 9.0-11.6 [facility] Comment on above: Performed By: #### P T, PTT ####[facility] Ibognskaki[address] [place], [place] [address]Dr. Farhat Leal PTTon 09-18-2021 aPTT Coag (Bld) [Time] 27.9 s Normal 22.3-36.[address] [facility] Comment on above: Performed By: #### P T, PTT ####[facility] Ehgohmiogt9[address] [place], [place] [address]Dr. Farhat Leal TSHon 09-18-2021 TSH 7.099 uIU/mL Critically high 0.358-3.740 [facility] Comment on above: Performed By: #### T , CMP ####[facility] Sspotwbobr[address] [place], [place] [address]Dr. Farhat Leal US SALOME DOP LEG RTon 09-19-19 US SALOME DOP LEG RT Normal [facility] XR CHEST 1 Von 09-18-2021 XR CHEST 1 V Normal [facility] XR HIP RT 2 3V W PELVISon XR HIP RT 2 3V W PELVIS Normal [facility] Vital Signs Date Time Vital Sign Value Performing Clinician Facility 07-20-2022 13:35-0400 Body temperature 97.4 [degF] DO Devon Ball Work Phone: [facility] 07-20-2022 13:35-0400 Diastolic blood pressure 50 mm[Hg] DO Devon Ball Work Phone: [facility] 07-20-2022 13:35-0400 Heart rate 67 /min DO Devon Ball Work Phone: [facility] 07-20-2022 13:35-0400 Respiratory rate 20 /min DO Devon Ball Work Phone: [facility] 07-20-2022 13:35-0400 Systolic blood pressure 98 mm[Hg] DO Devon Ball Work Phone: [facility] 06-29-2022 14:46-0400 Body height 193.04 cm DO Devon Ball Work Phone: [facility] 02-26-2022 13:11-0500 Body temperature 96.6 [degF] Hina Peterson MD Work Phone: [facility] 02-26-2022 13:11-0500 Diastolic blood pressure 75 mm[Hg] Hina Peterson MD Work Phone: [facility] 02-26-2022 13:11-0500 Heart rate 75 /min Hina Peterson MD Work Phone: [facility] 02-26-2022 13:11-0500 Systolic blood pressure 88 mm[Hg] Hina Peterson MD Work Phone: [facility] 02-05-2022 08:29-0500 Body temperature 96.69 [degF] [facility] Work Phone: [facility] 02-05-2022 08:29-0500 Diastolic blood pressure 42 mm[Hg] [facility] Work Phone: [facility] 02-05-2022 08:29-0500 Heart rate 79 /min [facility] Work Phone: [facility] 02-05-2022 08:29-0500 SaO2% (BldA) [Mass fraction] 100 % [facility] Work Phone: [facility] 02-05-2022 08:29-0500 Systolic blood pressure 72 mm[Hg] [facility] Work Phone: [facility] 01-12-2022 11:00-0500 Diastolic blood pressure 54 mm[Hg] Alissa Major ACID LEVELER.PIPELINE INSPECTOR Work Phone: [facility] 01-12-2022 11:00-0500 Heart rate 88 /min Alissa Major ACID LEVELER.PIPELINE INSPECTOR Work Phone: [facility] 01-12-2022 11:00-0500 SaO2% (BldA) [Mass fraction] 93 % Alissa Major ACID LEVELER.PIPELINE INSPECTOR Work Phone: [facility] 01-12-2022 11:00-0500 Systolic blood pressure 96 mm[Hg] Alissa Major ACID LEVELER.PIPELINE INSPECTOR Work Phone: [facility] 01-12-2022 10:12-0500 Body temperature 97.9 [degF] Alissa Major ACID LEVELER.PIPELINE INSPECTOR Work Phone: [facility] 01-12-2022 10:12-0500 Respiratory rate 18 /min Alissa Major ACID LEVELER.PIPELINE INSPECTOR Work Phone: [facility] 11-17-2021 15:59-0400 Body height 193 cm No Reeder DO Work Phone: [facility] 11-17-2021 15:59-0400 Body weight 111.58 kg No Reeder DO Work Phone: [facility] 11-17-2021 15:59-0400 Diastolic blood pressure 59 mm[Hg] No Reeder DO Work Phone: [facility] 11-17-2021 15:59-0400 Heart rate 86 /min No Reeder DO Work Phone: [facility] 11-17-2021 15:59-0400 SaO2% (BldA) [Mass fraction] 97 % No Reeder DO Work Phone: [facility] 11-17-2021 15:59-0400 Systolic blood pressure 104 mm[Hg] No Reeder DO Work Phone: [facility] Encounters Encounter Date Encounter Type Care Provider Facility Start: 01-14-2023 End: 01-14-2023 ambulatory Devon Moreira Other [employer] Other Start: 01-14-2023 Sbsq nursing facil c are/day minor complj 15 min [facility] Start: 12-10-2022 End: 12-10-2022 ambulatory Devon Moreira Other [employer] Other Start: 12-10-2022 Sbsq nursing facil c are/day minor complj 15 min [facility] Start: 11-12-2022 End: 11-12-2022 ambulatory Devon Moreira Other [employer] Other Start: 11-12-2022 Sbsq nursing facil c are/day minor complj 15 min [facility] Start: 10-16-2022 Refill Asia Pike MD Work Phone: [facility] Comment on above: Med Change Request Start: 10-12-2022 End: 10-12-2022 ambulatory Devon Moreira Other [employer] Other Start: 10-12-2022 Telephone encounter Devon Moreira [facility] Start: 10-08-2022 End: 10-08-2022 ambulatory Devon Moreira Other [employer] Other Start: 10-08-2022 Sbsq nursing facil c are/day new problem 25 min [facility] Start: 09-22-2022 Refill Ariadna Mcdowell [facility] Comment on above: Rx Refills Start: 09-10-2022 End: 09-10-2022 ambulatory Devon Moreira Other [employer] Other Start: 09-10-2022 Sbsq nursing facil c are/day new problem 25 min Devon Moreira [facility] Start: 09-09-2022 End: 09-09-2022 ambulatory [facility] Start: 08-06-2022 End: 08-06-2022 ambulatory Devon Moreira Other [employer] Other Start: 08-06-2022 Sbsq nursing facil c are/day new problem 25 min Devon Moreira [facility] Start: 07-22-2022 End: 07-22-2022 ambulatory Devon Moreira Other [employer] Other Start: 07-22-2022 Telephone encounter [facility] Start: 07-20-2022 End: 07-20-2022 ambulatory Sadia Luisey Facility:[facility] Start: 07-20-2022 End: 07-20-2022 ambulatory DO Devon Moreira Work Phone: [facility] Work Phone: Start: 07-20-2022 End: 07-20-2022 Discharged Recurring DO Devon Moreira Work Phone: [facility] Work Phone: Start: 07-13-2022 End: 07-13-[address] DEVON MOREIRA Facility:[facility] Start: 07-10-2022 End: 07-10-[address] DEVON MOREIRA Facility:[facility] Start: 07-03-2022 End: 07-03-[address] DEVON MOREIRA Facility:[facility] Start: 06-26-2022 End: 06-26-[address] DEVON MOREIRA Facility:[facility] Start: 06-26-2022 End: 06-26-[address] DEVON MOREIRA Facility:[facility] Start: 06-25-2022 End: 06-25-2022 ambulatory Devon Moreira Other [employer] Other Start: 06-25-2022 Sbsq nursing facil c are/day minor complj 15 min Devon Moreira [facility] Start: 06-19-2022 End: 06-19-[address] DEVON MOREIRA Facility:[facility] Start: 06-15-2022 End: 07-15-2022 ambulatory SHAIKH Kate MURRAY Facility:[facility] Start: 06-12-2022 End: 06-12-[address] DOCTOR WALSH Facility:[facility] Start: 06-05-2022 Sbsq nursing facil c are/day new problem 25 min Devon Moreira [facility] Start: 06-05-2022 End: 06-05-[address] DEVON MOREIAR [employer] Other Start: 05-29-2022 End: 05-29-[address] DEVON MOREIRA Facility:[facility] Start: 05-22-2022 End: 05-22-[address] DEVON MOREIRA Facility:[facility] Start: 05-20-2022 End: 05-20-[address] DEVON MOREIRA Facility:[facility] Start: 05-18-2022 End: 06-12-2022 ambulatory SHAIKH Kate MURRAY Facility:[facility] Start: 05-15-2022 End: 05-15-[address] DEVON MOREIRA Facility:[facility] Start: 05-13-2022 End: 05-13-2022 ambulatory Van Olivarez APRN.PIPELINE INSPECTOR Work Phone: [facility] Comment on above: results Start: 05-13-2022 E-mail encounter fro m caregiver Van Olivarez APRN.PIPELINE INSPECTOR Work Phone: [facility] Start: 05-08-2022 End: 05-08-[address] DEVON MOREIRA Facility:[facility] Start: 05-07-2022 End: 05-07-2022 ambulatory Devon Moreira Other [employer] Other Start: 05-07-2022 Sbsq nursing facil c are/day new problem 25 min [facility] Start: 05-06-2022 End: 05-06-[address] DEVON [...] Van cortes APRN.CNP Work Phone: [facility] Start: 04-01-2022 End: 04-01-[address] DEVON MOREIRA Facility:[facility] Start: 03-22-2022 Refill Asia Pike MD Work Phone: [facility] Comment on above: Med Change Request Start: 03-21-2022 ambulatory SHAIKH Kate MURRAY Facilit y:[facility] Start: 03-11-2022 End: 03-11-[address] DEVON MOREIRA Facility:[facility] Start: 03-10-2022 End: 03-10-2022 ambulatory [facility] Start: 02-27-2022 Refill Samira Serna [facility] Comment on above: Rx Refills Start: 02-26-2022 End: 02-26-2022 ambulatory DEVON MOREIRA Facility:[facility] Start: 02-26-2022 End: 02-26-2022 Patient encounter procedure Hina Peterson MD Work Phone: Vascular Surg Dept Comment on above: Hx of BKA, right (HC C) (Primary Dx); PAD (peripheral artery disease) ([facility]); Mixed hyperlipidemia due to type 2 diabetes mellitus ([facility]); Type II or unspecified type diabetes mellitus [...] Telephone encounter Devon Moreira DO Work Phone: [facility] Comment on above: Appointment Refill Request Start: 02-05-2022 End: 02-06-[address] DEVON MOREIRA Facility:[facility] Start: 02-05-2022 End: 02-06-2022 ambulatory ARTUR CHEN Facility:[facility] Start: 02-05-2022 End: 02-05-2022 Patient encounter procedure [facility] Work Phone: [facility] Comment on above: Kidney replaced by t ransplant (Primary Dx); 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; penitentiary current use of immunosuppressive drug Start: 01-26-2022 End: 01-26-[address] DEVON MOREIRA Facility:[facility] Start: 01-20-2022 Telephone encounter Van Olivarez APRN.CNP Work Phone: Kidney Medicine [facility] Comment on above: Results Start: 01-19-2022 End: 01-19-[address] DEVON MOREIRA Facility:[facility] Start: 01-16-2022 ambulatory SHAIKH Kate MURRAY Facilit y:[facility] Start: 01-12-2022 End: 01-12-2022 Subsequent hospital visit by physician Alissa Chavira APRN.PIPELINE INSPECTOR Work Phone: Angio Comment on above: ILIANA (acute kidney in jury) (HCC) [N17.9] Start: 12-30-2021 End: 12-30-2021 ambulatory Paresh Fonseca MD Work Phone: Infectious Disease Comment on above: MRSA bacteremia (Arabella munira Dx); Diabetic foot ulcer with osteomyelitis (HCC) Start: 12-30-2021 End: 12-30-2021 Telemedicine consultation with patient Paresh Fonseca MD Work Phone: [facility] Start: 12-29-2021 End: 12-29-[address] [...] Start: 12-08-2021 Orders Only Artur Burger ry ACID LEVELER.PIPELINE INSPECTOR Work Phone: [facility] Comment on above: Kidney replaced by t ransplant (Primary Dx) Start: 12-07-2021 ambulatory Paresh Fonseca MD Work Phone: [facility] Comment on above: CoPat Start (copat s top 12/27/21) Start: 12-05-2021 Telephone encounter Paresh Fonseca MD Work Phone: Infectious Disease Comment on above: Patient Update (evus held discussion/) Start: 12-01-2021 Follow-up encounter [facility] Provider [facility] Start: 12-01-2021 Patient encounter procedure [facility] Prov ider [facility] Department Start: 11-23-2021 End: 11-28-2021 Evaluation [...] management encounter Start: 11-14-2021 End: 11-15-2021 ambulatory [facility] Facility:[facility] Start: 10-24-2021 End: 11-15-2021 ambulatory SHAIKH Kate MERCEDESSYLVIA Facility:[facility] Start: 10-22-2021 End: 10-23-2021 ambulatory [facility] Facility:[facility] Start: 10-06-2021 ambulatory Van cortes ACID LEVELER.PIPELINE INSPECTOR Work Phone: [facility] Start: 09-30-2021 Refamauri Pike MD Work Phone: [facility] Comment on above: Refill Request Start: 09-19-2021 End: 09-24-2021 Evaluation and management of inpatient DR PROSPER LEES Facility:[facility] Start: 09-18-2021 End: 09-19-[address] DEVON MOREIRA Facility:[facility] Start: 07-11-2021 Refamauri Pike MD Work Phone: [facility] Comment on above: Refill Request Start: 06-05-2021 Telephone encounter Van Olivarez ACID LEVELER.PIPELINE INSPECTOR Work Phone: [facility] Comment on above: Results Start: 02-05-2021 End: 02-13-2021 ambulatory UNKNOWN PROVIDER Facility:[facility] Procedures Date Procedure Procedure Detail Performing Clinician Start: 02-05-2022 Creatinine other source Asia Pike MD Work Phone: Start: 02-05-2022 Urnls dip stick/tabl et rgnt auto w/o microscopy Asia Pike MD Work Phone: Start: 01-12-2022 Prothrombin time Alissa Chavira ACID LEVELER.PIPELINE INSPECTOR Work Phone: Start: 12-01-2021 PACEMAKER CLINIC CHECK [facility] Provider Start: 11-29-2021 Microscopic examinat ion of blood, culture DR PROSPER LEES Comment on above: Performed By: #### B [id number] ####[facility] [address] [place], [place] [address]CcSkylar Leal Start: 11-27-2021 Insertion of Infusio n [...] renal transplant KIDNEY TRANSPLANT STATUS Van Olivarez ACID LEVELER.PIPELINE INSPECTOR Work Phone: History of renal transplant Kidney replaced by transplant Artur Chen ACID LEVELER.PIPELINE INSPECTOR Work Phone: History of renal transplant Kidney replaced by transplant [facility] Work Phone: History of renal transplant Devon Moreira Other History of renal transplant Kidney replaced by transplant Asia Pike MD Work Phone: Plan of Treatment Date Care Activity Detail Author Start: 02-26-2023 BP CONTROLLED (<130/80) BP CONTROLLE D (<130/80) [facility] Start: 02-05-2023 BP CONTROLLED (<130/80) BP CONTROLLE D (<130/80) [facility] Start: 01-12-2023 BP CONTROLLED (<130/80) BP CONTROLLE D (<130/80) [facility] Start: 11-17-2022 BP CONTROLLED (<130/80) BP CONTROLLE D (<130/80) [facility] Start: 10-16-2022 Influenza vaccination C [facility] Start: 04-08-2022 BP CONTROLLED (<130/80) BP CONTROLLE D (<130/80) [facility] Start: 02-15-2022 ADVANCE DIRECTIVE DISCUSSION ADVANCE DIRECTIVE DISCUSSION [facility] Start: 02-15-2022 DEPRESSION ASSESSMENT DEPRESSION ASS ESSMENT [facility] Start: 02-05-2022 COVID-19 VACCINE (5 - Yung risk series) COVID-19 VACCINE (5 - Yung risk series) [facility] Start: 11-27-2021 COVID-19 VACCINE (4 - Booster for Yung series) COVID-19 VACCINE (4 - Booster for Yung series) [facility] Start: 11-04-2021 Hemoglobin A1c/Hemoglobin.total in Blood HBA1C [facility] Start: 10-16-2021 [facility] Start: 03-26-2021 COVID-19 VACCINE (3 - Yung risk 3-dose series) COVID-19 VACCINE (3 - Ynug risk 3-dose series) [facility] Start: 03-26-2021 COVID-19 VACCINE (3 - Yung risk series) COVID-19 VACCINE (3 - Yung risk series) [facility] Start: 02-15-2021 ADVANCE DIRECTIVE DISCUSSION ADVANCE DIRECTIVE DISCUSSION [facility] Start: 02-15-2021 DEPRESSION ASSESSMENT DEPRESSION ASS ESSMENT [facility] Start: 01-05-2016 Hepatitis B screening URINE AL BUMIN:CREATININE RATIO [facility] Start: 04-06-2015 Hemoglobin A1c/Hemoglobin.total in Blood HBA1C [facility] Start: 11-22-2010 Hepatitis B surface antibody level LDL CHOLESTEROL [facility] Start: 2009 ADULT PREVNAR-13 ADULT PREVNAR-13 Cl [facility] Start: 2009 PNEUMOVAX AGE 65 AND OVER WITH 5YR LOOKBACK (#1) PNEUMOVAX AGE 65 AND OVER WITH 5YR LOOKBACK (#1) [facility] Start: 1994 SHINGRIX VACCINE (1 of 2) SHINGRIX VACCINE (1 of 2) [facility] Start: 10-18-1963 HEPATITIS A (1 of 2 - Risk 2-dose series) HEPATITIS A (1 of 2 - Risk 2-dose series) [facility] Start: 10-18-1963 Hepatitis A Vaccine (1 of 2 - Risk 2-dose series) Hepatitis A Vaccine (1 of 2 - Risk 2-dose series) [facility] Start: 10-18-1963 SHINGRIX VACCINE (1 of 2) SHINGRIX VACCINE (1 of 2) [facility] Start: 10-18-1963 Urine microalbumin profile [facility] Start: 1962 ANNUAL PCP TEAM AGRICULTURAL ENGINEER MATTHEW DISEASE VISIT ANNUAL PCP TEAM CHRONIC DISEASE VISIT [facility] Start: 1956 Adult depression screening assessment DEPRESSION SCREENING [facility] Start: 1954 3 comp foot exam completed DIABETIC FOOT EXAM [facility] Start: 1954 Hepatitis C antibody , confirmatory test DILATED RETINAL EXAM [facility] Start: 1950 Pneumococcal Vaccine : 65+ (1 - PCV) Pneumococcal Vaccine: 65+ (1 - PCV) [facility] Start: 1950 PNEUMOCOCCAL: 65+ (1 - PCV) PNEUMOCOCCAL: 65+ (1 - PCV) [facility] Start: 1945 HEPATITIS A (1 of 2 - Risk 2-dose series) HEPATITIS A (1 of 2 - Risk 2-dose series) [facility] URINALYSIS, REFLEX MICROSCOPIC URINALYSIS, REFLEX MICROSCOPIC Lab Routine Screening for genitourinary condition Ordered: 10/06/2021 [facility] Work Phone: Comment on above: Ordered: 10/06/2021 URINALYSIS, REFLEX MICROSCOPIC URINALYSIS, REFLEX MICROSCOPIC Lab Routine Screening for genitourinary condition Ordered: 04/02/2022 [facility] Work Phone: Comment on above: Ordered: 04/02/2022 End: 11-17-2022 US LEG ARTERIAL PERIPH UNL VAS LAB US LEG ARTERIAL PERIPH UNL VAS LAB Vascular Lab Routine PAD (peripheral artery disease) (HCC) Nonhealing ulcer of heel (HCC) 1 Occurrences starting 11/17/2021 until 11/17/2022 [facility] Work Phone: Comment on above: 1 Occurrences starti ng 11/17/2021 until 11/17/2022 End: 11-17-2022 US LEG VEIN DVT UNL VAS LAB US LEG VEIN DVT UNL VAS LAB Vascular Lab Routine Acute deep vein thrombosis (DVT) of proximal end of right lower extremity (HCC) 1 Occurrences starting 11/17/2021 until 11/17/2022 [facility] Work Phone: Comment on above: 1 Occurrences starti ng 11/17/2021 until 11/17/[address] [facility] & VAS D[facility] & VAS [facility] Immunizations Immunization Date Immunization Notes Care Provider Mercedes gonzalez 12-11-2021 COVID-19 booster vaccine, age 12+ yr, bivalent (PFIZER-BIONTECH) Paresh Fonseca MD Work Phone: [facility] 12-11-2021 influenza, high-dose , quadrivalent vaccine (FLUZONE HIGH DOSE QUADRIVALENT) Paresh Fonseca MD Work Phone: [facility] 12-11-2021 influenza virus vaccine, unspecified formulation [facility] 03-09-2011 influenza virus vaccine, unspecified formulation Van Olivarez ACID LEVELER.[facility] Work Phone: [facility] 12-17-2007 influenza virus vaccine, unspecified formulation Van Lard ACID LEVELER.[facility] Work Phone: [facility] Work Phone: 02-11-2006 influenza virus vaccine, unspecified formulation Van Lard ACID LEVELER.[facility] Work Phone: [facility] Work Phone: 12-07-2003 influenza virus vaccine, unspecified formulation Van Lard ACID LEVELER.[facility] Work Phone: [facility] Work Phone: 12-07-2003 pneumococcal polysaccharide vaccine, 23 valent Van Olivarez ACID LEVELER.[facility] Work Phone: [facility] Work Phone: NEGATED: Highlighted row has not occurred!12-10-2021 COVID-19 booster vaccine, age 12+ yr, bivalent (PFIZER-BIONTECH) Paresh Fonseca MD Work Phone: [facility] NEGATED: Highlighted row has not occurred!12-10-2021 influenza, high-dose, quadrivalent vaccine (FLUZONE HIGH DOSE QUADRIVALENT) Paresh Fonseca MD Work Phone: [facility] Payers Date Payer Category Payer Medicare MEDICARE MEDICAR E A AND B [id number] 2009-Present [phone] [place] [address] Medicare [id number] 2009 Medicare MEDICARE MEDICAR E A AND B [id number] 2009-Present [phone] [place] [address] Medicare [id number] 2009 Unknown [employer] [place] [employer] [place] MEDIC[place] SUPPLEMENT [id number] 2009-Present [phone] 33[address] [employer] [place] [address] Indemnity [id number] 2009 Unknown [employer] [employer] [place] MEDIC[place] SUPPLEMENT [id number] 2009-Present [phone] 3300 [employer] [place] [address] Indemnity [id number] 2009 Unknown [id number] 2.16.8 [id number] 2009 Unknown [id number] 1959 Medicare [id number] 1959 Self-pay 1944 Unknown [id number] 2.16.840.1.442835.3.579.2.732 1944 Unknown [id number] 2.16.840.1.916423.3.579.2.593 1944 Unknown [id number] 2.16.840.1.317164.3.579.2.593 1944 Unknown [id number] 2.16.840.1.525582.3.579.2.593 1944 Unknown [id number] 2.16.840.1.081987.3.579.2.593 1944 Unknown [id number] 2.16.840.1.276563.3.579.2.593 1944 Unknown [id number] 2.16.840.1.075881.3.579.2.593 1944 Unknown [id number] 2.16.840.1.563538.3.579.2.593 1944 Unknown [id number] 2.16.840.1.567967.3.579.2.593 1944 Unknown [id number] 2.16.840.1.877639.3.579.2.593 1944 Unknown [id number] 2.16.840.1.365663.3.579.2.593 1944 Unknown [id number] 2.16.840.1.449623.3.579.2.593 1944 Unknown [id number] 2.16.840.1.985412.3.579.2.593 1944 Unknown [id number] 2.16.840.1.724920.3.579.2.593 1944 Unknown [id number] 2.16.840.1.109617.3.579.2.593 1944 Unknown [id number] 2.16.840.1.679987.3.579.2.593 1944 Unknown [id number] 2.16.840.1.633202.3.579.2.593 1944 Unknown [id number] 2.16.840.1.837980.3.579.2.593 1944 Unknown [id number] 2.16.840.1.831958.3.579.2.593 1944 Unknown [id number] 2.16.840.1.348090.3.579.2.593 1944 Unknown [id number] 2.16.840.1.202497.3.579.2.593 1944 Unknown [id number] 2.16.840.1.668205.3.579.2.593 1944 Unknown [id number] 2.16.840.1.669810.3.579.2.593 1944 Unknown [id number] 2.16.840.1.241538.3.579.2.593 1944 Unknown [id number] 2.16.840.1.888226.3.579.2.593 1944 Unknown [id number] 2.16.840.1.120809.3.579.2.593 1944 Unknown [id number] 2.16.840.1.778788.3.579.2.593 1944 Unknown [id number] 2.16.840.1.984380.3.579.2.593 1944 Unknown [id number] 2.16.840.1.468464.3.579.2.593 1944 Unknown [id number] 2.16.840.1.436380.3.579.2.593 1944 Unknown [id number] 2.16.840.1.985997.3.579.2.593 1944 Unknown [id number] 2.16.840.1.233687.3.579.2.593 1944 Unknown [id number] 2.16.840.1.941712.3.579.2.593 1944 Unknown [id number] 2.16.840.1.807975.3.579.2.593 1944 Unknown [id number] 2.16.840.1.942603.3.579.2.593 1944 Unknown [id number] 2.16.840.1.027126.3.579.2.593 1944 Unknown [id number] 2.16.840.1.273810.3.579.2.593 1944 Unknown [id number] 2.16.840.1.304366.3.579.2.593 1944 Unknown [id number] 2.16.840.1.877514.3.579.2.593 1944 Unknown [id number] 2.16.840.1.593391.3.579.2.593 1944 Unknown [id number] 2.16840.1.231432.3.579.2.593 1944 Unknown [id number] 2.840.1.627088.3.579.2.593 1944 Unknown [id number] 2.16840.1.512002.3.579.2.593 1944 Unknown [id number] 2.16840.1.735347.3.579.2.593 1944 Unknown [id number] 2.16840.1.765363.3.579.2.593 1944 Unknown [id number] 2.16840.1.426264.3.579.2.593 1944 Unknown [id number] 2.16840.1.985444.3.579.2.593 Medicare Medicare Outpatient [id number] [id number] Unknown [id number] 2.16.840.1.990930.3.579.2.593 Unknown [id number] 2.16840.1.442146.3.579.2.593 Unknown [id number] 2.16.840.1.836834.3.579.2.531 Social History Date Type Detail Facility Start: 03-09-2011 End: 02-26-2022 Tobacco smoking status NHIS Ex-smoker [facility] Work Phone: End: 02-15-1975 History of tobacco use Current smoker [facility] Work Phone: End: 02-15-1975 History of tobacco use Cigarette Smoker [facility] Work Phone: Start: 04-08-2021 End: 02-26-2022 Alcohol intake Current drinker of alcohol (finding) [facility] Start: 1945 Sex Assigned At Not on file C [facility] Start: 03-09-2011 End: 03-02-2022 Cigarettes smoked current (pack per day) - Reported 1 [facility] Work Phone: Start: 03-09-2011 End: 02-26-2022 Tobacco use and exposure Smokeless tobacco non-user [facility] Start: 09-25-2021 History SDOH Financial 5 [facility] Start: 09-25-2021 History SDOH Food Worry 1 [facility] Start: 09-25-2021 History SDOH Transpo rt Med 2 [facility] Start: 09-14-2021 End: 01-12-2022 Exposure to SARS-CoV-2 (event) Not sure [facility] Start: 02-26-2022 End: 03-02-2022 Sex Assigned At [facility] Work Phone: Start: 1945 Sex Assigned At Male F [facility] How hard is it for y ou to pay for the very basics like food, housing, medical care, and heating Not hard at all [facility] Work Phone: (I/We) worried wheth er (my/our) food would run out before (I/we) got money to buy more. Never true [facility] Work Phone: In the past 12 month s, was there a time when you were not able to pay the mortgage or rent on time? No [facility] Work Phone: Medical Equipment Procedure Code Equipment Code Equipment Original Text Equipment Identifier Dates Tye Hopper urecuff 5fr Polyurethane Catheter 1 Lumen Microintroducer - [id number] Start: 12-06-2021 Clinical Notes 06-05-2021 to [...] are maintaining regular scheduled appts with their trade clerk. No bleeding complications Dec, Hyperlipidemia LDL goal [...] fluid balance and to avoid dehydration. Dec, penitentiary (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 of insulin (ICD-10 - Z79.4) [employer] Other 10-26-2023 Evaluation note* Encounter Date Diagnosis Assessment Notes Treatment Notes Treatment Clinical Notes Nov, Longstanding persistent atrial fibrillation (ICD-10 - I48.11) This patient is in NSR or rate controlled. This patient is anticoagulated to prevent thromboembolic events. They are maintaining regular scheduled appts with their trade clerk. No bleeding complications Nov, Hyperlipidemia LDL goal [...] Z94.0) Monthly labs to transplant clinic Nov, penitentiary (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 of insulin (ICD-10 - Z79.4) [employer] Other 09-28-2023 Evaluation note* Encounter Date Diagnosis [...] are maintaining regular scheduled appts with their trade clerk. No bleeding complications Oct, Type 1 diabetes [...] - Z94.0) Continue routine surveillance labs. 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 DX Code Needed. 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 No bleeding complications Sep, Type 1 diabetes [...] risk for cerebrovascular and cardiovascular disease. Sep, penitentiary (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 of insulin (ICD-10 - Z79.4) Sep, Kidney transplant status (ICD-10 - Z94.0) f/u transplant clinic Continue surveillance labs [employer] Other 08-08-2023 Miscellaneous Notes* Telephone Encounter - Ariadna Mcdowell Tech - 09/22/2022 8:58 AM EDT Pharmacy requesting refills as follows: Requested Prescriptions Pending Prescriptions Disp Refills tacrolimus IR (PROGRAF) 1 mg capsule Sig: Take 1 capsule by mouth DAILY AT 6 PM. Please review and advise. Ariadna Mcdowell, documented in this encounterPark[facility] Evaluation [facility]* Encounter Date Diagnosis Assessment Notes Treatment Notes Treatment Clinical Notes Aug, Longstanding persistent atrial fibrillation (ICD-10 - I48.11) This patient is in NSR or rate controlled. This patient is anticoagulated to prevent thromboembolic events. They are maintaining regular scheduled appts with their trade clerk. No s/s bleeding Aug, Type 1 diabetes [...] risk for cerebrovascular and cardiovascular disease. Aug, penitentiary (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 of insulin (ICD-10 - Z79.4) Aug, Kidney transplant status (ICD-10 - Z94.0) Continue close surveillance w/ [employer] Other 07-26-2023 NotePatient here for 1.5 year follow up and device check. Lightheaded in the office today, as BP is very low. He denies chest pain, SOB, palpitations, and bleeding on warfarin. Had routine labs last week. Review of Systems Musculoskeletal: Positive for arthritis, joint pain and myalgias. Neurological: Positive for light-headedness. All other systems reviewed and are negative.[facility] 09-09-2022 NoteUT Electrophysiology Consult Note Reason for [...] at about 50-60 systolic. patient with friend/ dumpster driver from facility, we will take patient to the ER for evaluation --------- Per dr. Alvarez 03/2021 Mr. Almonte, [place] , presents to clinic for routine follow [...] of the right coronary artery with robust [id number] collaterals. 5. Normal global left ventricular systolic [...] Follow up with Dr. Galvez in the [facility] in the next 2 weeks; he may follow up with Dr. Orosco as needed for interventional issues. 5. Follow up with Dr. Devon Ball as scheduled. PMH: Past Medical History: Diagnosis Date Abnormal ECG Arrhythmia Atrial fibrillation (CMS/HCC) Chronic kidney disease Coronary artery disease Diabetes mellitus (CMS/HCC) (more content not included)...[facility]06-22-2023 Evaluation note* Encounter Date Diagnosis Assessment Notes [...] are maintaining regular scheduled appts with their trade clerk. No bleeding complications Jul, Type 1 diabetes [...] risk for cerebrovascular and cardiovascular disease. 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 [address] [place] [address] Wound Center Provider Note Signed Patient: Alex Almonte MR#: [id number] : 1945 Acct:[id number] Age/Sex: 76 / M Copies to: Devon Moreira,DO Sadia Aguilar, ACID LEVELER~ HPI Date of Visit Date of Visit: Date of Service: 06/29/2022 Time of Service: 14:45 Narrative HPI: 12/30/21 Alex is a 76 year old male presenting to [facility] wound care for aninitial visit for eval and treatment of a sacral/coccyx area pressure ulcer. He resides at [facility]. There is an DIVISION ROADMASTER present for the visit. Medicalhoney gel will [...] his brief that was cleaned by this card writer hand as well as another nursing staff member, [...] from initial visit here Mode of Arrival/ Tower Observer: Facility vehicle Assistive Device Used Today: Wheelchair and Indra Lives with:: Care/Nursing Facility Appetite Description: Within Normal Limits Who helps w/ dressing change?: Nursing Facility Why Do You Need Help?: Can't Reach Ulcer, Limited mobility and Taxing effort to leave home Smoking Status: Former smoker [facility] Medical History (Updated 03/03/22 @ 14:41 by [...] Ulcer/Injury Staging: Unstageable Bed Appearance: Beefy Red, Manteno, Yellow and Rolled Edges Percent of Wound [...] <Electronically signed by DAVID Aguilar> 06/29/[address] [facility] Work Phone: 1([phone]) 877-751805-11-2023 Evaluation note* Encounter Date Diagnosis Assessment Notes [...] are maintaining regular scheduled appts with their trade clerk. No bleeding complications June, Hyperlipidemia LDL goal <100 (ICD-10 - E78.5) Instructed on diet and exercise with continued statin therapy.Discussed the beneficial effects of lowering cholesterol in reducing the risk for cerebrovascular and cardiovascular disease. 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 [address] [place] [address] Wound Center Provider Note Signed Patient: Alex Almonte MR#: [id number] : 1945 Acct:[id number] Age/Sex: 76 / M Copies to: DO Sadia Whyte, DAVID~ HPI Date of Visit Date of Visit: Date of Service: 06/08/2022 Time of Service: 14:07 Narrative HPI: 12/30/21 Alex is a 76 year old male presenting to [facility] wound care for aninitial visit for eval and treatment of a sacral/coccyx area pressure ulcer. He resides at [facility]. There is an DIVISION ROADMASTER present for the visit. Medicalhoney gel will [...] his brief that was cleaned by this card writer hand as well as another nursing staff member, [...] from initial visit here Mode of Arrival/ Tower Observer: Facility vehicle Assistive Device Used Today: Wheelchair and Indra Lives with:: Care/Nursing Facility Appetite Description: Within Normal Limits Who helps w/ dressing change?: Nursing Facility Why Do You Need Help?: Can't Reach Ulcer, Limited mobility and Taxing effort to leave home Smoking Status: Former smoker [facility] Medical History (Updated 03/03/22 @ 14:41 by [...] Ulcer/Injury Staging: Unstageable Bed Appearance: Beefy Red, Manteno, Yellow and Rolled Edges Percent of Wound [...] <Electronically signed by DAVID Aguilar> 06/08/22 [address] [facility] Work Phone: [phone] 690-278904-21-2023 Evaluation note* Encounter Date Diagnosis Assessment Notes [...] are maintaining regular scheduled appts with their trade clerk. May, penitentiary (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 of insulin (ICD-10 - Z79.4) May, Kidney transplant status (ICD-10 - Z94.0) routine labs per clinic. 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 No open ulcerations present Pain controlled [employer] Other 03-27-2023 Progress note Author Sadia Aguilar [facility] May 11, 2022 1:41pm Note Date/Time May 11, 2022 1:4 0pm [facility] [address] [place] [address] Wound Center Provider Note Signed Patient: Alex Almonte MR#: [id number] : 1945 Acct:[id number] Age/Sex: 76 / M Copies to: DO Sadia Whyte APRN~ HPI Date of Visit Date of Visit: Date of Service: 05/11/2022 Time of Service: 13:38 Narrative HPI: 12/30/21 Alex is a 76 year old male presenting to [facility] wound care for aninitial visit for eval and treatment of a sacral/coccyx area pressure ulcer. He resides at [facility]. There is an DIVISION ROADMASTER present for the visit. Medicalhoney gel will [...] his brief that was cleaned by this card writer hand as well as another nursing staff member, [...] from initial visit here Mode of Arrival/ Tower Observer: Facility vehicle Assistive Device Used Today: Wheelchair and Indra Lives with:: Care/Nursing Facility Appetite Description: Within Normal Limits Who helps w/ dressing change?: Nursing Facility Why Do You Need Help?: Can't Reach Ulcer, Limited mobility and Taxing effort to leave home Smoking Status: Former smoker [facility] Medical History (Updated 03/03/22 @ 14:41 by [...] Ulcer/Injury Staging: Unstageable Bed Appearance: Beefy Red, Manteno and Yellow Percent of Wound Bed Granulated/Red: [...] <Electronically signed by DAVID Aguilar> 05/11/[address] [facility] Work Phone: 1(586) 164-627803-23-2023 Evaluation note* Encounter Date Diagnosis Assessment Notes [...] are maintaining regular scheduled appts with their trade clerk. Apr, Type 1 diabetes mellitus with hyperglycemia [...] are reviewed at the office visit Apr, penitentiary (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 of insulin (ICD-10 - Z79.4) Apr, Kidney transplant status (ICD-10 - Z94.0) Serial labs by clinic Hydrate, avoid NOLBERTO [employer] Other 03-10-2023 NoteHNO ID: [id number] Author: Keyur Brown MD Service: ? Author Type: Physician Type: Progress Notes Filed: 04/24/2022 10:32 AM Note Text: Encounter opened in error, patient not seen.[facility]02-28-2023 Progress note Author Sadia Aguilar [facility] April 14, 2022 2:19pm Note Date/Time April 14, 2022 2:18pm [facility] [address] [place] [address] Wound Center Provider Note Signed Patient: Alex Almonte MR#: [id number] : 1945 Acct:[id number] Age/Sex: 76 / M Copies to: Devon Moreira DO Sadia Jeff, ACID LEVELER~ HPI Date of Visit Date of Visit: Date of Service: 04/14/2022 Time of Service: 14:18 Narrative HPI: 12/30/21 Alex is a 76 year old male presenting to [facility] wound care for aninitial visit for eval and treatment of a sacral/coccyx area pressure ulcer. He resides at [facility]. There is an DIVISION ROADMASTER present for the visit. Medicalhoney gel will [...] his brief that was cleaned by this card writer hand as well as another nursing staff member, [...] from initial visit here Mode of Arrival/ Tower Observer: Facility vehicle Assistive Device Used Today: Wheelchair and Indra Lives with:: Care/Nursing Facility Appetite Description: Within Normal Limits Who helps w/ dressing change?: Nursing Facility Why Do You Need Help?: Can't Reach Ulcer, Limited mobility and Taxing effort to leave home Smoking Status: Former smoker [facility] Medical History (Updated 03/03/22 @ 14:41 by [...] Ulcer/Injury Staging: Unstageable Bed Appearance: Beefy Red, Manteno and Yellow Percent of Wound Bed Granulated/Red: [...] DD/ 17 Signed By: <Electronically signed by DVAID Aguilar> 04/14/22 [address] [facility] Work Phone: [phone]) 786-204302-16-2023 NotePatient Outreach (KIMBERLY) ALEX ALMONTE ([id number]) 1945 [facility] Date Time Provider Department 04/02/22 VAN OLIVAREZ During your visit today, we recorded the following information about you: Allergies As of Date: 04/02/2022 Noted Allergy Reaction PYRIDOSTIGMINE BROMIDE 08/04/2021 8 - GI Upset Date Reviewed: 02/26/2022 Reviewed by: Braden Abel MA - Fully Assessed Visit Diagnosis:Screening for genitourinary condition [Z13.89] Order(s):URINALYSIS, REFLEX MICROSCOPIC [[id number]] Order #: [id number] Prescriptions as of 04/06/2022 - tacrolimus IR [...] by mouth daily with lunch. 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 DIABETES UNCOMPL ADULT-UNCONTRLLED [JGF3203] 02/24/2002 KIDNEY TRANSPLANT STATUS [Z94.0] 09/07/2003 PROPHYLACTIC IMMUNOTHERAPY [Z29.8] 07/30/2006 LONG-TERM STEROIDS [ZRT8135] 07/30/2006 VITAMIN D DEFICIENCY NOS [E55.9] 09/07/2008 [...] diabetes mellitus with diabetic peripher*11/29/2021 Atherosclerosis of stony river artery of extremity w*11/29/2021 Malnutrition of moderate degree (HCC) [E44.0] 12/01/2021 Dermatitis associated with moisture [L30.8] 12/04/2021 Encounter Status:Closed by CONCETTA HOBBS on 04/06/22[facility] 03-30-2022 Miscellaneous Notes* Telephone Encounter - Van [...] to pharmacy. Katina Duque documented in this encounterPark[facility]-07-[facility]23 Progress note Author Sadia Aguilar [facility] March 24, 2022 3:00pm Note Date/Time March 24, 2022 2 :59pm [facility] [address] [place] [address] Wound Center Provider Note Signed Patient: Alex Almonte MR#: [id number] : 1945 Acct:[id number] Age/Sex: 76 / M Copies to: DO Sadia Whyte APRN~ HPI Date of Visit Date of Visit: Date of Service: 03/24/2022 Time of Service: 14:58 Narrative HPI: 12/30/21 Alex is a 76 year old male presenting to [facility] wound care for aninitial visit for eval and treatment of a sacral/coccyx area pressure ulcer. He resides at [facility]. There is an DIVISION ROADMASTER present for the visit. Medicalhoney gel will [...] his brief that was cleaned by this card writer hand as well as another nursing staff member, [...] from initial visit here Mode of Arrival/ Tower Observer: Facility vehicle Assistive Device Used Today: Wheelchair and Indra Lives with:: Care/Nursing Facility Appetite Description: Within Normal Limits Who helps w/ dressing change?: Nursing Facility Why Do You Need Help?: Can't Reach Ulcer, Limited mobility and Taxing effort to leave home Smoking Status: Former smoker [facility] Medical History (Updated 03/03/22 @ 14:41 by Sadia Copsey, ACID LEVELER) Below-knee amputation of right lower extremity Diabetes [...] Ulcer/Injury Staging: Unstageable Bed Appearance: Beefy Red, Manteno and Yellow Percent of Wound Bed Granulated/Red: [...] <Electronically signed by DAVID Aguilar> 03/24/[address] [facility] Work Phone: 1(790) 601-788601-17-2023 Progress note Author Sadia Aguilar [facility] March 03, 2022 2:41pm Note Date/Time March 03, 2022 2 :41pm [facility] [address] [place] [address] Wound Center Provider Note Signed Patient: Alex Almonte MR#: [id number] : 1945 Acct:[id number] Age/Sex: 76 / M Copies to: DO Sadia Whyte APRN~ HPI Date of Visit Date of Visit: Date of Service: 03/03/2022 Time of Service: 14:38 Narrative HPI: 12/30/21 Alex is a 76 year old male presenting to [facility] wound care for aninitial visit for eval and treatment of a sacral/coccyx area pressure ulcer. He resides at [facility]. There is an DIVISION ROADMASTER present for the visit. Medicalhoney gel will [...] his brief that was cleaned by this card writer hand as well as another nursing staff member, [...] from initial visit here Mode of Arrival/ Tower Observer: Facility vehicle Assistive Device Used Today: Wheelchair and Indra Lives with:: Care/Nursing Facility Appetite Description: Within Normal Limits Who helps w/ dressing change?: Nursing Facility Why Do You Need Help?: Can't Reach Ulcer, Limited mobility and Taxing effort to leave home Smoking Status: Former smoker [facility] Medical History (Updated 03/03/22 @ 14:41 by [...] Ulcer Pressure Ulcer/Injury Staging: Unstageable Bed Appearance: Manteno and Yellow Percent of Wound Bed Granulated/Red: 90 Percent of Devitalized: 10 Length (cm): 2.2 Width (cm): 1.8 Depth (cm): 1.9 CM Sq: 3.960 Surrounding Tissue Appearance: Manteno, Hyperpigmented and Satellite lesions Surrounding Tissue Temp: [...] <Electronically signed by DAVID Aguilar> 03/03/[address] [facility] Work Phone: [phone]) 778-457201-13-2023 Miscellaneous Notes* Telephone Encounter - RAUL Davidson - 02/27/2022 10:24 AM EST Patient phones requesting refills as follows: Per pts sister takes 1 mg in AM and 1 mg in PM Requested Prescriptions Pending Prescriptions Disp Refills tacrolimus IR (PROGRAF) 1 mg capsule Sig: Take 2 capsules by mouth DAILY (6 AM). Please review and advise. RALU Davidson documented in this encounterPark[facility]01-12-2023 NoteHNO ID: [id number] Author: Hina Peterson MD Service: ? Author Type: Physician Type: Progress Notes Filed: 02/26/2022 4:31 PM Note Text: [facility] [place] DEPARTMENT OF VASCULAR SURGERY OUTPATIENT VISIT DATE [...] his postop visit. He has been in halfway since then and has been recovering from his acute on chronic congestive heart failure. His wound has largely been healing without any issues and the maxwell and sutures were removed at the nursing facility. He comes here with a lateral wound eschar. He denies any fevers, chills, or any drainage. He is on anticoagulation. 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 [employer] [place] with lunch aspirin, enteric coated (ASPIRIN, ENTERIC COATED) 81 mg EC tablet Take 1 tablet by mouth once daily. predniSONE (DELTASONE) 5 mg tablet TAKE 1 TABLET BY MOUTH EVERY DAY oxyCODONE IR (ROXICODONE) 5 mg immediate release tablet 1-2 tablets by ORAL/FEEDING TUBE route every 3 hours as needed. Food Supplement, Lactose-Free (ENSURE MAX (more content not included)... [facility]01-12-2023 History of Present illness Narrative* Hina Peterson MD - 02/26/2022 4:25 PM EST Images from the original note were not included. [facility] [place] DEPARTMENT OF VASCULAR SURGERY OUTPATIENT VISIT DATE [...] his postop visit. He has been in halfway since then and has been recovering from his acute on chronic congestive heart failure. His wound has largely been healing without any issues and the maxwell and sutures were removed at the [facility] facility. He comes here with a lateral wound eschar. He denies any fevers, chills, or any drainage. He is on anticoagulation. 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 Patient on mycophenolate mofetil ,cellcept and prednisone 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) 11/29/2021 Osteomyelitis (HCC) 11/29/2021 Paroxysmal atrial fibrillation ([facility]) Renal transplant, status post SA node dysfunction ([facility]) s/p pacemaker Type 2 diabetes mellitus with [...] by mouth daily with lunch. [place] with lunch aspirin, enteric coated (ASPIRIN, ENTERIC [...] 2022 TIME: 4:26 PM documented in this encounterParkview Health [facility]01-05-2023 Miscellaneous Notes* Telephone Encounter - Gwen [...] Home and cell number(Ask for Alex's nurse) [phone] Diagnosis 4 mo f/u wound check Yumiko Mcclain documented in this encounterParkview Health [facility] Hospital01-05-2023 Miscellaneous Notes* Telephone Encounter - Augusta Medrano RN - 02/19/2022 11:11 AM EST Alex Almonte's nursing facility, [facility], called regarding elevated tacrolimus level (23.9). Spoke with bedside nurse, mukul Enriquez. Level is from last week- unable to clearly determine if medications were held prior to lab work. Reviewed with nurse morning labs should occur prior to lab draws. Patient is scheduled for repeat labs tomorrow. Will assess new level. Augusta Medrano RN documented in this encounterParkview Health [facility] Hospital01-04-2023 Miscellaneous Notes* Telephone Encounter - Martina [...] advise. Mercedez Tavares MA documented in this encounterParkview Health [facility] Hospital12-27-2022 Progress note Author Sadai Aguilar [facility] February 10, 2022 3:47pm Note Date/Time February 10, 2022 3:47pm [facility] [address] [place] [address] Wound Center Provider Note Signed Patient: Alex Almonte MR#: [id number] : 1945 Acct:[id number] Age/Sex: 76 / M Copies to: DO Sadia Whyte APRN~ HPI Date of Visit Date of Visit: Date of Service: 02/10/2022 Time of Service: 15:44 Narrative HPI: 12/30/21 Alex is a 76 year old male presenting to [facility] wound care for aninitial visit for eval and treatment of a sacral/coccyx area pressure ulcer. He resides at [facility]. There is an DIVISION ROADMASTER present for the visit. Medicalhoney gel will [...] his brief that was cleaned by this card writer hand as well as another nursing staff member, few weeks to follow up Subjective Pain Coccyx: Pain Description: Intermittent Pain Intensity: 0 Wound/Ulcer History When did wound start?: 4 weeks ago- from initial visit here Mode of Arrival/ Tower Observer: Facility vehicle Assistive Device Used Today: Wheelchair and Indra Lives with:: Care/Nursing Facility Appetite Description: Within Normal Limits Who helps w/ dressing change?: Nursing Facility Why Do You Need Help?: Can't Reach Ulcer, Limited mobility and Taxing effort to leave home Smoking Status: Former smoker [facility] Medical History (Updated 01/20/22 @ 14:21 by [...] Ulcer Pressure Ulcer/Injury Staging: Unstageable Bed Appearance: Manteno and Yellow Percent of Wound Bed Granulated/Red: 90 Percent of Devitalized: 10 Length (cm): 2.5 Width (cm): 2.3 Depth (cm): 2.1 CM Sq: 5.750 Surrounding Tissue Appearance: Manteno, Hyperpigmented and Satellite lesions Surrounding Tissue Temp: [...] <Electronically signed by DAVID Aguilar> 02/10/[address] [facility] Work Phone: 1(591) 644-262712-22-2022 NoteHNO ID: [id number] Author: Asia Pike MD Service: ? Author Type: Physician Type: Progress Notes Filed: 02/05/2022 9:38 AM Note Text: [facility] [place] Transplant Follow up Portions of this note [...] and snacks patient declined. Indra scale at [facility]: 166.2 lbs per patient. Bed sore on coccyx causing discomfort. Being changed regularly at SNF- reported to be smaller around but still as deep. Patient not very up to date with medications. Patient brought paperwork from [employer] with all medications being received. Patient unsure if they have been drawing labs regularly. Last Tac from 01/19: 12.9 and K 5.9. In need of current labs. Lab orders will be sent with patient and follows as below: Kidney and Pancreas Transplant Standing Lab Orders [id number] [facility] [address] [place], [place] [address] February 05, 2022 Alex Almonte 1945 [id number] STANDARD TESTING: Diagnosis Codes: Z94.0 Kidney Transplant [...] AT YOUR LABORATORY FACILITY AND FAX TO [phone]. PLEASE CALL [phone]. Provider: Dr. Pike Current Outpatient Medications Medication [...] by mouth daily with lunch. Magic Cup [place] with lunch aspirin, enteric coated (ASPIRIN, ENTERIC COATED) 81 mg EC tablet Take 1 tablet by mouth once daily. atorvastatin (LIPITOR) 40 mg tablet 1 tablet by ORAL/FEEDING TUBE route daily at bedtime. (more content not included)...[facility]12-22-2022 History of Present illness Narrative* Asia Pike MD - 02/05/2022 8:20 AM EST Images from the original note were not included. [facility] [place] Trans[facility] Follow up Portions of this note [...] and snacks patient declined. Indra scale at [facility]: 166.2 lbs per patient. Bed sore on coccyx causing discomfort. Being changed regularly at [facility]- reported to be smaller around but still as deep. Patient not very up to date with medications. Patient brought paperwork from [employer] with all medications being received. Patient unsure if they have been drawing labs regularly. Last Tac from 01/19: 12.9 and K 5.9. In need of current labs. Lab orders will be sent with patient and follows as below: Kidney and Pancreas Transplant Standing Lab Orders [address] [place], [place] [address] February 05, 2022 Alex Almonte 1945 [id number] STANDARD TESTING: Diagnosis Codes: Z94.0 Kidney Transplant [...] AT YOUR LABORATORY FACILITY AND FAX TO [phone]. PLEASE CALL [phone]. Provider: Dr. Pike Current Outpatient Medications Medication [...] by mouth daily with lunch. Magic Cup [place] with lunch aspirin, enteric coated (ASPIRIN, ENTERIC [...] complexity. Asia Pike MD documented in this encounterPark[facility]12-06-2022 Progress note Author Sadia Aguilar [facility] January 20, 2022 2:21pm Note Date/Time January 20, 2022 2 :21pm [facility] [address] [place] [address] Wound Center Provider Note Signed Patient: Alex Almonte MR#: [id number] : 1945 Acct:[id number] Age/Sex: 76 / M Copies to: DO Sadia Whyte APRN~ HPI Date of Visit Date of Visit: Date of Service: 01/20/2022 Time of Service: 14:17 Narrative HPI: 12/30/21 Alex is a 76 year old male presenting to [facility] wound care for aninitial visit for eval and treatment of a sacral/coccyx area pressure ulcer. He resides at [facility]. There is an DIVISION ROADMASTER present for the visit. Medicalhoney gel will [...] from initial visit here Mode of Arrival/ Tower Observer: Facility vehicle Assistive Device Used Today: Wheelchair and Indra Lives with:: Care/Nursing Facility Appetite Description: Within Normal Limits Who helps w/ dressing change?: Nursing Facility Why Do You Need Help?: Can't Reach Ulcer, Limited mobility and Taxing effort to leave home Smoking Status: Former smoker [facility] Medical History (Updated 01/20/22 @ 14:21 by [...] Ulcer Pressure Ulcer/Injury Staging: Unstageable Bed Appearance: [place] and Yellow Percent of Wound Bed Granulated/Red: 40 Percent of Devitalized: 60 Length (cm): 5.2 Width (cm): 3.4 Depth (cm): 1.8 CM Sq: 17.680 Surrounding Tissue Appearance: Manteno and Hyperpigmented Surrounding Tissue Temp: Warm Drainage [...] By: <Electronically signed by DAVID Aguilar> 01/20/[address] [facility] Work Phone: [phone] 468-393312-06-2022 Miscellaneous Notes* Telephone Encounter - Van Olivarez APRN.CNP - 01/20/2022 1:12 PM EST Labs noted from yesterday. Pt is currently residing at [facility], I spoke with the Nurse, the results has been addressed by Physician caring for pt. He had been placed on Chlor Con and this has been discontinued and hyperkalemia has been treated. Van Olivarez APRN.CNP documented in this encounterParkview Health [facility] Hospital11-28-2022 Surgical operation note* Brief Op Note - Misbah Landis PA-C - 01/12/2022 10:41 AM EST BRIEF OPERATIVE / PROCEDURE NOTE LOG ID: [id number] SURGERY/PROCEDURE DATE: 01/12/2022 INCISION/PROCEDURE START TIME: 10:32 AM INCISION CLOSE/PROCEDURE END TIME: 10:35 AM SURGEON(S)/PROCEDURALIST(S) AND AERONAUTICS TEACHER(S): Misbah Landis PA-C SURGERY/PROCEDURE(S): Removal tunneled vascular access catheter under local anesthesia ANESTHESIA: Procedural Sedation FINDINGS: Catheter removed intact ESTIMATED BLOOD LOSS: 0 ml SPECIMENS: None COMPLICATIONS: None PRE-OP/PRE-PROCEDURE DIAGNOSIS: Foot Ulcer POST-OP/POST-PROCEDURE DIAGNOSIS: Same as Preop SIGNATURE: Misbah Landis PA-C PATIENT NAME: Alex Almonte DATE: January 12, 2022 TIME: 10:42 AM documented in this encounterParkview Health Bryan Hospital11-22-2022 Nurse Note* Laxmi Archibald RN - 01/06/2022 1:55 PM EST Pre-procedure instructions: Contacted patient's sister, Munira Brothers and nurse at [facility] ([phone]) andconfirmed appt. for Gerhard removal scheduled on 01/12/22, at [facility]. If instructions are not followed your [...] signed. Arrival at 9:30am [facility] and check in for your procedure. Custody Assistant/Transportation: How will you be arriving for your procedure? Ambulance service. To be arranged by [facility]. If you develop any of the following symptoms before your procedure, please call [phone]. Chills, joint pain, rash, sore throat, cough, loss of smell, reddened eyes, vomiting, abdominal pains, diarrhea, loss of taste, severe headache, weakness, bruising or bleeding, fever, muscle pain, shortness of breath Recovery expectations: You can expect to be in recovery for 30 minutes following the procedure. Written instructions provided to patient via [employer] If you have any questions please call [phone] documented in this encounterParkview Health Bryan Hospital11-15-2022 Progress note Author Sadia Aguilar [facility] December 30, 2021 1:49pm Note Date/Time December 30, 2021 1:49pm [facility] [address] [place] [address] Wound Center Provider Note Signed Patient: Alex Almonte MR#: [id number] : 1945 Acct:[id number] Age/Sex: 76 / M Copies to: DO Sadia Whyte APRN~ HPI Date of Visit Date of Visit: Date of Service: 12/30/2021 Time of Service: 13:44 Narrative HPI: 12/30/21 Alex is a 76 year old male presenting to [facility] wound care for aninitial visit for eval and treatment of a sacral/coccyx area pressure ulcer. He resides at [facility]. There is an DIVISION ROADMASTER present for the visit. Medicalhoney gel will [...] start?: 4 weeks ago Mode of Arrival/ Tower Observer: Facility vehicle Assistive Device Used Today: Wheelchair and Indra Lives with:: Care/Nursing Facility Appetite Description: Within Normal Limits Who helps w/ dressing change?: Nursing Facility Why Do You Need Help?: Can't Reach Ulcer, Limited mobility and Taxing effort to leave home Smoking Status: Former smoker [facility] Medical History (Updated 12/30/21 @ 13:49 by [...] 0.1 CM Sq: 38.500 Surrounding Tissue Appearance: Manteno and Hyperpigmented Surrounding Tissue Temp: Warm Drainage [...] <Electronically signed by DAVID Aguilar> 12/30/[address] [facility] Work Phone: [phone] 556-849811-15-2022 History of Present illness Narrative* Paresh Fonseca [...] the rehab facility He is currently at [facility] in [facility] Seen on video together with Zoe -history [...] has local wound care following this at [facility] WBC 6.0, creatinine -- 0.8. alt [...] by mouth daily with lunch. Magic Cup [place] with lunch aspirin, enteric coated (ASPIRIN, ENTERIC [...] is a 76 year old male from [facility]. 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 History of PAD CAD status post CABG, diabetes, atrial fibrillatioN He originally presented [facility] for having altered mental status and [...] 3. Status post right heel I&D at [facility] on 11/24/2021. 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 4. CKD - s/p gerhard placement 5. immunocompromised Status post right open above the ankle [id number]/17 - Enterobacter and MRSA from cultures Gram-positive [...] will need to coordinate with his SNF [phone] --our ID office will need to arrange for IR gerhard removal. Return to ID as needed 10 Minutes spent via virtual visit. SIGNATURE: Paresh Fonseca MD PATIENT NAME: Alex Almonte DATE: December 30, 2021 TIME: 9:52 AM documented in this encounterParkview Health [facility] Hospital11-01-2022 Miscellaneous Notes* Telephone Encounter - Sulma Pardo - 12/16/2021 3:13 PM EDT Pt director veterinary is requesting orders for Stomp ampushield to be taken off pressure relief because it is causing sores on the thigh. Thanks, Sulma Pardo Disintegrator Feeder documented in this encounterParkview Health Bryan Hospital10-31-2022 Miscellaneous Notes* Telephone Encounter - Gwen Alfredo Adm Asst I - 12/15/2021 4:11 PM EDT Rupa LYLES from [facility] [phone] called to report IV Vancomycin was started until today. Patient missed 3 days, should patient makeup missed doses? Please advise. Gwen Alfredo Adm Asst I documented in this encounterParkview Health Bryan Hospital10-21-2022 Instructions* Patient Instructions* Paresh Fonseca MD [...] serious illness Are taking any medications (prescription, tgfd-gio-hzuinhb, vitamins, or herbal products) How will I receive EVUSHELD? EVUSHELD consists of two investigational medicines, tixagevimab and cilgavimab. You will receive 1 dose of EVUSHELD, consisting of 2 separate injections (tixagevimab and cilgavimab). EVUSHELD will be given to you by your healthcare provider as 2 intramuscular injections, given one after the other. Viruses can change management lead time (mutate) and develop into a slightly [...] caused by certain SARS-CoV-2 variants: Viruses can change management lead time (mutate) and develop into a slightly [...] treatment or prevention of COVID-19 go to https://www.fda.gov/sgstkvghw-sgbykcevjyol-noo- response/evr-kzere-znmddedcdz-ecv-lvkjox-itfgibbez/ojlejfnbn-rtm-nklbjcpoegesk for more information. It is your choice [...] to FDA MedWatch at www.fda.gov/medwatch or call 7-549-DQH-8199 or call [employer] . Additional Information If you have questions, visit the website or call the telephone number provided below. Website Telephone number http://Heavy How can I learn more about COVID-19? Ask your healthcare provider. Visit https://www.cdc.gov/COVID19 Contact your local or state public health department. What is an Emergency Use Authorization? The [place] FDA has made EVUSHELD (tixagevimab co-packaged with cilgavimab) available under an emergency access mechanism called an Emergency Use Authorization EUA. The EUA is supported by a Margie of Health and Human Service (HHS) declaration [...] monohydrate, polysorbate 80, sucrose, water. Distributed by: [employer] [place], [place] Manufactured for: [employer], [place] [employer] 2021. All rightsreserved. documented in this encounterParkview Health Bryan Hospital10-21-2022 Miscellaneous Notes* Telephone Encounter - Paresh Fonseca MD - 12/05/2021 3:05 PM EDT Evusheld (tixagevimab/cilgavimab) Eligibility and Patient Discussion The patient agrees to receive Evusheld (tixagevimab 300 mg and cilgavimab 300 mg) at [place]. The patient verbalized understanding of repeating a COVID test 72 hours prior to the injections. called up patient in response to her Social 2 [employer] message today she tested covid negative on a rapid test on Wednesday this week Discussed evushed fact sheet and she agrees to proceed she will retest again today to be scheduled for Friday 12/08 at [facility] Paresh Fonseca MD documented in this encounterParkview Health Bryan Hospital10-03-2022 Instructions* Patient Instructions* No Reeder DO - 11/17/2021 4:26 PM EDT -- continue coumadin -- will get vascular ultrasound for vein and artery of your right leg -- will have you see my interventional cardiology partner regarding your peripheral artery disease and if your artery disease is impairing your wound healing for the leg ulcer documented in this encounterParkview Health Bryan Hospital10-03-2022 History of Present illness Narrative* No Reeder DO - 11/17/2021 3:53 PM EDT Images from the original note were not included. [facility] [place] [facility] Department of Cardiovascular Medicine SECTION [...] DVT scan. Leg elevation. No Reeder DO, [facility] V[facility] Medicine documented in this encounterDustin V[place] [address]-16-2022 History of Past illness Narrative* Problem Noted Date Resolved Date Altered tissue perfusion documented as of this encounter (statuses as of 09/30/2021) [address]16-2022 History of Past illness Narrative* Problem Noted Date Resolved Date Altered tissue perfusion documented as of this encounter (statuses as of 10/09/2021) [address]16-2022 History of Past illness Narrative* Problem Noted Date Resolved Date Altered tissue perfusion documented as of this encounter (statuses as of 11/18/2021) [address]16-2022 History of Past illness Narrative* Problem Noted Date Resolved Date Altered tissue perfusion documented as of this encounter (statuses as of 12/01/2021) [address]16-2022 History of Past illness Narrative* Problem Noted Date Resolved Date Altered tissue perfusion documented as of this encounter (statuses as of 12/05/2021) [address]16-2022 History of Past illness Narrative* Problem Noted Date Resolved Date Altered tissue perfusion documented as of this encounter (statuses as of 12/08/2021) [address]16-2022 History of Past illness Narrative* Problem Noted Date Resolved Date Altered tissue perfusion 16/2 022 documented as of this encounter (statuses as of 12/08/2021) [address]16-2022 History of Past illness Narrative* Problem Noted Date Resolved Date Altered tissue perfusion 16/2 022 documented as of this encounter (statuses as of 12/12/2021) [address]16-2022 History of Past illness Narrative* Problem Noted Date Resolved Date Altered tissue perfusion 16/2 022 documented as of this encounter (statuses as of 12/15/2021) [address]16-2022 History of Past illness Narrative* Problem Noted Date Resolved Date Altered tissue perfusion 16/2 022 documented as of this encounter (statuses as of 12/16/2021) [address]16-2022 History of Past illness Narrative* Problem Noted Date Resolved Date Altered tissue perfusion 16/2 022 documented as of this encounter (statuses as of 12/31/2021) [address]16-2022 History of Past illness Narrative* Problem Noted Date Resolved Date Altered tissue perfusion 16/2 022 documented as of this encounter (statuses as of 01/13/2022) [address]16-2022 History of Past illness Narrative* Problem Noted Date Resolved Date Altered tissue perfusion 16/2 022 documented as of this encounter (statuses as of 01/20/2022) [address]16-2022 History of Past illness Narrative* Problem Noted Date Resolved Date Altered tissue perfusion 16/2 022 documented as of this encounter (statuses as of 02/06/2022) [address]16-2022 History of Past illness Narrative* Problem Noted Date Resolved Date Altered tissue perfusion 16/2 022 documented as of this encounter (statuses as of 02/20/2022) [address]16-2022 History of Past illness Narrative* Problem Noted Date Resolved Date Altered tissue perfusion /16/2 022 documented as of this encounter (statuses as of 02/26/2022) [address]16-2022 History of Past illness Narrative* Problem Noted Date Resolved Date Altered tissue perfusion /16/2 022 documented as of this encounter (statuses as of 02/27/2022) [address]16-2022 History of Past illness Narrative* Problem Noted Date Resolved Date Altered tissue perfusion documented as of this encounter (statuses as of 03/21/2022) [address]16-2022 History of Past illness Narrative* Problem Noted Date Resolved Date Altered tissue perfusion documented as of this encounter (statuses as of 03/30/2022) [address]16-2022 History of Past illness Narrative* Problem Noted Date Resolved Date Altered tissue perfusion documented as of this encounter (statuses as of 04/06/2022) [address]16-2022 History of Past illness Narrative* Problem Noted Date Resolved Date Altered tissue perfusion documented as of this encounter (statuses as of 05/13/2022) [address]16-2022 History of Past illness Narrative* Problem Noted Date Diagnosed Date Resolved Date Altered tissue perfusion documented as of this encounter (statuses as of 2022) [facility] History of Past illness Narrative* Problem Noted Date Diagnosed Date Resolved Date Altered tissue perfusion documented as of this encounter (statuses as of 10/29/2022) [facility]08-16-[facility] Miscellaneous Notes* Telephone Encounter - Katina [...] to pharmacy. Katina Duque documented in this encounterParkview Health Bryan Hospital05-31-2022 Miscellaneous Notes* Telephone Encounter - Van [...] advise. Rosibel Link Adm documented in this encounterParkview Health Bryan Hospital04-21-2022 Miscellaneous Notes* Telephone Encounter - Van Olivarez APRN.CNP - 06/05/2021 4:46 PM EDT Spoke with pt regarding latest results, scr. at baseline. TAC level 8.6 prev two levels in 5 range.He believes latest level would be 12hr trough. No changes for now, if next level >7, can consider if reduction appropriate. He understands. Van Olivarez APRN.CNP [facility]* Diagnosis Screening for genitourinary condition Screening for other and unspecified genitourinary condition documented in this encounter [facility] note* Diagnosis Acute deep vein thrombosis (DVT) of proximal end of right lower extremity (HCC)- Primary PAD (peripheral artery disease) ([facility]) Peripheral vascular disease, unspecified Nonhealing ulcer of heel ([facility]) Anticoagulation management encounter Encounter for therapeutic drug monitoring documented in this encounter [facility] note* Diagnosis Encounter for prophylactic measures, unspecified- Primary documented in this encounter [facility] note* Diagnosis Kidney replaced by transplant- Primary documented in this encounter [facility] note* Diagnosis MRSA bacteremia- Primary Bacteremia Diabetic foot ulcer with osteomyelitis (HCC) Type II or unspecified type diabetes mellitus with other specified manifestations, not stated as uncontrolled ILIANA (acute kidney injury) (HCC) Acute kidney failure, unspecified [facility]* Diagnosis Kidney replaced by transplant- Primary 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 documented in this encounter [facility] note* Diagnosis Hx of BKA, right (HCC)- [...] gangrene, with long-term current use of insulin ([facility]) Paroxysmal atrial fibrillation ([facility]) Atrial fibrillation documented in this encounter [facility] note* Diagnosis Screening for genitourinary condition Screening for other and unspecified genitourinary condition documented in this encounter [facility] note* Diagnosis Onset Date Resolution Status At high risk for skin breakdown chronic Diabetes chronic Fecal incontinence chronic Limited mobility chronic Poor appetite chronic Pressure ulcer of sacral region, unstageable chronic Candidiasis resolved [facility] Work Phone: Evaluation noteNo InformationNort WEE[employer]EVENT Other Evaluation note* Diagnosis Kidney replaced by transplant- Primary documented in this encounter [facility] general Narrative - Reported* Type Description [...] COLONOSCOPY 1995,2001, 2014 Hospitalization History see above [employer] Other Progress note Author Sadia Aguilar [facility] July 20, 2022 1:48pm Note Date/Time July 20, 2022 1:48p m [facility] [address] [place] [address] Wound Center Provider Note Signed Patient: Alex Almonte MR#: [id number] : 1945 Acct:[id number] Age/Sex: 76 / M Copies to: Devon Moreira,DO Sadia Aguilar, ACID LEVELER~ HPI Date of Visit Date of Visit: Date of Service: 07/20/2022 Time of Service: 13:46 Narrative HPI: 12/30/21 Alex is a 76 year old male presenting to [facility] wound care for aninitial visit for eval and treatment of a sacral/coccyx area pressure ulcer. He resides at [facility]. There is an DIVISION ROADMASTER present for the visit. Medicalhoney gel will [...] his brief that was cleaned by this card writer hand as well as another nursing staff member, [...] from initial visit here Mode of Arrival/ Tower Observer: Facility vehicle Assistive Device Used Today: Wheelchair and Indra Lives with:: Care/Nursing Facility Appetite Description: Within Normal Limits Who helps w/ dressing change?: Nursing Facility Why Do You Need Help?: Can't Reach Ulcer, Limited mobility and Taxing effort to leave home Smoking Status: Former smoker [facility] Medical History (Updated 03/03/22 @ 14:41 by [...] <Electronically signed by DAVID Aguilar> 07/20/[address] [facility] Work Phone: Reason for referral (narrative)* Outpatient Procedure (Routine) - Authorized Specialty Diagnoses / Procedures Referred By Felicia carreno Referred To Contact [facility] [place] Diagnoses PAD (peripheral artery disease) (HCC) Nonhealing ulcer of heel (HCC) Procedures US LEG ARTERIAL PERIPH UNL VAS LAB DUP-SCAN LXTR ART/ARTL BPGS UNI/LMTD STUDY No Reeder DO [address] [place] [address] [facility] [place] [address] Referral ID Status Reason Start Date Expiration Date Visits Requested Visits Authorized [id number] Authorized Auto-Generat ed Referral 11/17/2021 11/17/2022 1 1 * Outpatient Procedure (Routine) - Authorized Specialty Diagnoses / Procedures Referred By Contac t Referred To Contact [facility] Diagnoses Acute deep vein thrombosis (DVT) of proximal end of right lower extremity (HCC) Procedures US LEG VEIN DVT UNL VAS LAB DUP-SCAN XTR VEINS UNILATERAL/LIMITED STUDY No Reeder DO [address] [id number] [facility] [place] [address] [place] [id number] Referral ID Status Reason Start Date Expiration Date Visits Requested Visits Authorized [id number] Authorized Auto-Generat ed Referral 11/17/2021 11/17/2022 1 1 * Consult, Test, Treat (Routine) - Authorized Specialty Diagnoses / Procedures Referred By Contac t Referred To Contact Cardiology Diagnoses PAD (peripheral artery disease) (HCC) Nonhealing ulcer of heel (HCC) Procedures CONSULT TO CARDIOLOGY OFFICE/OUTPATIENT [facility] 60-74 MINUTES Savanah Marcelo MD [address] [id number] Referral ID Status Reason Start Date Expiration Date Visits Requested Visits Authorized [id number] Authorized PCP Requested Referral 11/17/2021 11/17/2022 1 1 [facility] Summary Purpose Family History Relationship Condition Age at Onset Recorded Date/T kartik father Aneurysm Unknown father Parkinson's disease Unknown Advance Directives Documents on File Type Date Recorded Patient Heeler Machine Expl anation Advance Directive(s) Latest Code Status [...] Maker Relationship: M ajority of Adult Siblings (medical sales representative) DNR-CCA 09/26/2021 11:56 AM 10/01/2021 2:18 [...] Decision Maker Relationship: Majority of Adult Siblings (medical sales representative) Code Status History Code Status Date [...] Reason for Visit Chief Complaint Open Wound ([facility]) Reason for Visit At high risk for [...] CREATED AUTHOR AUTHOR'S ORGANIZ ATION 07/25/2022 [facility] DATE CREATED AUTHOR AUTHOR'S ORGANIZ ATION 08/16/2022 [facility] DATE CREATED AUTHOR AUTHOR'S ORGANIZ ATION 09/17/2022 [facility] DATE CREATED AUTHOR AUTHOR'S ORGANIZ ATION 01/14/2023 [facility] Source Comments (unrecognize d section and content) In the event this informatio n is protected by the Federal Confidentiality of Alcohol and Drug Abuse Patient Records regulations: The Federal rules restrict any use of the information to criminally investigate or prosecute any alcohol or drug abuse patient.[facility] the event this information is protected by the Federal Confidentiality of Alcohol and Drug Abuse Patient Records regulations: The Federal rules restrict any use of the information to criminally investigate or prosecute any alcohol or drug abuse patient.[facility] HospitalIn the event this information is protected by the Federal Confidentiality of Alcohol and Drug Abuse Patient Records regulations: The Federal rules restrict any use of the information to criminally investigate or prosecute any alcohol or drug abuse patient.[facility] HospitalIn the event this information is protected by the Federal Confidentiality of Alcohol and Drug Abuse Patient Records regulations: The Federal rules restrict any use of the information to criminally investigate or prosecute any alcohol or drug abuse patient.[facility] HospitalIn the event this information is protected by the Federal Confidentiality of Alcohol and Drug Abuse Patient Records regulations: The Federal rules restrict any use of the information to criminally investigate or prosecute any alcohol or drug abuse patient.[facility] HospitalIn the event this information is protected by the Federal Confidentiality of Alcohol and Drug Abuse Patient Records regulations: The Federal rules restrict any use of the information to criminally investigate or prosecute any alcohol or drug abuse patient.[facility] HospitalIn the event this information is protected by the Federal Confidentiality of Alcohol and Drug Abuse Patient Records regulations: The Federal rules restrict any use of the information to criminally investigate or prosecute any alcohol or drug abuse patient.[facility] HospitalIn the event this information is protected by the Federal Confidentiality of Alcohol and Drug Abuse Patient Records regulations: The Federal rules restrict any use of the information to criminally investigate or prosecute any alcohol or drug abuse patient.[facility] HospitalIn the event this information is protected by the Federal Confidentiality of Alcohol and Drug Abuse Patient Records regulations: The Federal rules restrict any use of the information to criminally investigate or prosecute any alcohol or drug abuse patient.[facility] HospitalIn the event this information is protected by the Federal Confidentiality of Alcohol and Drug Abuse Patient Records regulations: The Federal rules restrict any use of the information to criminally investigate or prosecute any alcohol or drug abuse patient.[facility] HospitalIn the event this information is protected by the Federal Confidentiality of Alcohol and Drug Abuse Patient Records regulations: The Federal rules restrict any use of the information to criminally investigate or prosecute any alcohol or drug abuse patient.[facility] HospitalIn the event this information is protected by the Federal Confidentiality of Alcohol and Drug Abuse Patient Records regulations: The Federal rules restrict any use of the information to criminally investigate or prosecute any alcohol or drug abuse patient.[facility] HospitalIn the event this information is protected by the Federal Confidentiality of Alcohol and Drug Abuse Patient Records regulations: The Federal rules restrict any use of the information to criminally investigate or prosecute any alcohol or drug abuse patient.[facility] HospitalIn the event this information is protected [...] or prosecute any alcohol or drug abuse patient.[facility] HospitalIn the event this information is protected by the Federal Confidentiality of Alcohol and Drug Abuse Patient Records regulations: The Federal rules restrict any use of the information to criminally investigate or prosecute any alcohol or drug abuse patient.[facility] HospitalIn the event this information is protected by the Federal Confidentiality of Alcohol and Drug Abuse Patient Records regulations: The Federal rules restrict any use of the information to criminally investigate or prosecute any alcohol or drug abuse patient.[facility] HospitalIn the event this information is protected by the Federal Confidentiality of Alcohol and Drug Abuse Patient Records regulations: The Federal rules restrict any use of the information to criminally investigate or prosecute any alcohol or drug abuse patient.[facility] HospitalIn the event this information is protected by the Federal Confidentiality of Alcohol and Drug Abuse Patient Records regulations: The Federal rules restrict any use of the information to criminally investigate or prosecute any alcohol or drug abuse patient.[facility] HospitalIn the event this information is protected by the Federal Confidentiality of Alcohol and Drug Abuse Patient Records regulations: The Federal rules restrict any use of the information to criminally investigate or prosecute any alcohol or drug abuse patient.[facility] HospitalIn the event this information is protected by the Federal Confidentiality of Alcohol and Drug Abuse Patient Records regulations: The Federal rules restrict any use of the information to criminally investigate or prosecute any alcohol or drug abuse patient.[facility] HospitalIn the event this information is protected by the Federal Confidentiality of Alcohol and Drug Abuse Patient Records regulations: The Federal rules restrict any use of the information to criminally investigate or prosecute any alcohol or drug abuse patient.[facility] HospitalIn the event this information is protected by the Federal Confidentiality of Alcohol and Drug Abuse Patient Records regulations: The Federal rules restrict any use of the information to criminally investigate or prosecute any alcohol or drug abuse patient.[facility] HospitalIn the event this information is protected by the Federal Confidentiality of Alcohol and Drug Abuse Patient Records regulations: The Federal rules restrict any use of the information to criminally investigate or prosecute any alcohol or drug abuse patient.[facility] HospitalIn the event this information is protected by the Federal Confidentiality of Alcohol and Drug Abuse Patient Records regulations: The Federal rules restrict any use of the information to criminally investigate or prosecute any alcohol or drug abuse patient.[facility] HospitalIn the event this information is protected by the Federal Confidentiality of Alcohol and Drug Abuse Patient Records regulations: The Federal rules restrict any use of the information to criminally investigate or prosecute any alcohol or drug abuse patient.[facility] Reason for Visit (unrecogniz ed section [...] Care Teams (unrecognized sec tion and content) Investigator Narcotics Relationship Specialty Start Date End Date Devon Moreira, DO [address] [facility] [address] PCP - General 05/27/00 Investigator Narcotics Relationship Specialty Start Date End Date Devon Moreira, DO [address] [facility] [address] PCP - General 05/27/00 Investigator Narcotics Relationship Specialty Start Date End Date Devon Moreira, DO [address] [facility] [address] PCP - General 05/27/00 Investigator Narcotics Relationship Specialty Start Date End Date Devon Moreira, DO [address] [facility] [address] PCP - General 05/27/00 Investigator Narcotics Relationship Specialty Start Date End Date Devon Moreira, DO [address] [facility] [address] PCP - General 05/27/00 Investigator Narcotics Relationship Specialty Start Date End Date Devon Moreira, DO [address] [facility] [address] PCP - General 05/27/00 Investigator Narcotics Relationship Specialty Start Date End Date Devon Moreira, DO [address] [place] [address] PCP - General 05/27/00 Investigator Narcotics Relationship Specialty Start Date End Date Devon Moreira, DO [address] [place] [address] PCP - General 05/27/00 Investigator Narcotics Relationship Specialty Start Date End Date Devon Moreira, DO [address] [place] [address] PCP - General 05/27/00 Investigator Narcotics Relationship Specialty Start Date End Date Devon Moreira, DO [address] [place] [address] PCP - General 05/27/00 Investigator Narcotics Relationship Specialty Start Date End Date Devon Moreira, DO [address] [place] [address] PCP - General 05/27/00 Investigator Narcotics Relationship Specialty Start Date End Date Devon Moreira, DO [address] [place] [address] PCP - General 05/27/00 Investigator Narcotics Relationship Specialty Start Date End Date Devon Moreira, DO [address] [place] [address] PCP - General 05/27/00 Investigator Narcotics Relationship Specialty Start Date End Date Devon Moreira, DO [address] [place] [address] PCP - General 05/27/00 Investigator Narcotics Relationship Specialty Start Date End Date Devon Moreira, DO [address] [place] [address] PCP - General 05/27/00 Investigator Narcotics Relationship Specialty Start Date End Date Devon Moreira, DO [address] [facility] [place] [address] PCP - General 05/27/00 Investigator Narcotics Relationship Specialty Start Date End Date Devon Moreira, DO [address] [facility] [place] [address] PCP - General 05/27/00 Investigator Narcotics Relationship Specialty Start Date End Date Devon Moreira, DO [address] [facility] [place] [address] PCP - General 05/27/00 Investigator Narcotics Relationship Specialty Start Date End Date Devon Moreira, DO [address] [facility] [place] [address] PCP - General 05/27/00 Team Status: Active Member Role Status Dates Devon Moreira DO Primary Care Provider Active Team Status: Inactive Member Role Status Dates Devon Moreira DO Primary Care Provider Active Sadia Aguilar APRN Attending Provider Active Investigator Narcotics Relationship Specialty Start Date End Date Devon Moreira DO [address] [facility] [place] [address] PCP - General 05/27/00 Investigator Narcotics Relationship Specialty Start Date End Date Devon Moreira DO [address] [place] [address] PCP - General 05/27/00 PRN Active and Recently Administ ered Medications (unrecognized section and content) Medication Order 01/10/2022 01/11/2022 01/12/2022 lidocaine (PF) 10 mg/mL (1 %) injection (XYLOCAINE) SUBCUTANEOUS, X (OR/PROCEDURE) PRN, Starting on 01/12/22 at 1032, Until Wed01/13/22 at 0303, Intraprocedure 1032 (Given - Provid er: Vani Cotrell, ACID LEVELER.PIPELINE INSPECTOR) Goals (unrecognized section and content) Goals may [...] BE BASED ON THE PRIMARY CLINICAL RECORDS. [employer] [facility]. provides no warranty or guarantee of the accuracy or completeness of information in this document.
[2023-02-12 08:50] LABS: INR 2.17
[2023-02-12 11:19] LABS: Alanine Aminotransferase 26 U/L (16-63); Albumin Globulin Ratio 0.7; Albumin Level 2.6 g/dL (3.4-5.0); Alkaline Phosphatase 68 U/L (46-116); Anion Gap 9.3; Aspartate Amino Transferase 23 U/L (15-37); BUN Creatinine Ratio 39.4; Bilirubin Total 0.4 mg/dL (0.2-1.0); Calcium 8.8 mg/dL (8.5-10.1); Carbon Dioxide 28.9 mmol/L (21.0-32.0); Chloride 104 mmol/L (98-107); Estimated GFR (African America >60 (>=60); Estimated GFR (Non-African Ame 55 (>=60); Globulin 3.5 g/dL; Glucose 132 mg/dL (74-106); Phosphorus 4.3 mg/dL (2.6-4.7); Potassium 4.2 mmol/L (3.5-5.1); Sodium 138 mmol/L (136-145); Total Protein 6.1 g/dL (6.4-8.2)
[2023-02-16 19:07] LABS: Tacrolimus (FK506), Blood 6.6 ng/mL (2.0-20.0)
== END 2023-02-12 00:41 | disposition home or self-care (01) ==
LOC: LAB 00:40
PROVIDERS: PCP Internal Medicine; Visit Provider Internal Medicine
DX: Z51.81 Encounter for therapeutic drug level monitoring (principal)
CPT/HCPCS: 36415; 80053; 80197; 83735; 84100; 85610

== ENCOUNTER 2023-02-15 01:06 | Outpatient (RCR) | payer MEDICARE, OTHER, SELFPAY | END 2023-03-17 17:20 | disposition home or self-care (01) | LOC: MM 01:06 | PROVIDERS: PCP Internal Medicine; Visit Provider Internal Medicine | DX: Z51.81 Encounter for therapeutic drug level monitoring (principal); Z79.01 Long term (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 of anticoagulants ==

== ENCOUNTER 2023-02-19 01:29 | Outpatient (REF) | payer MEDICARE, OTHER, SELFPAY ==
--- OUTSIDE RECORDS SUMMARY | 2023-02-19 01:35 | XMS_ITS | CCD ---
Author Name Unknown Address [address] [place] [address] Organization [facility] Care Team Providers Care Half Backer Name Role Phone PROVIDER, UNKNOWN Attending Unavailable PROVIDER, UNKNOWN Admitting Unavailable Lillie DO, Devon García Primary Care Provider Lillie DO, Devon E Primary Care Provider Lillie DO, Devon E Primary Care Provider Lillie DO, Devon García Primary Care Provider Lillie, Devon Unavailable NABEEL, DR PROSPER Douglas Attending Unavailable NABEEL, DR PROSPER Douglas Admitting Unavailable CASTANO ., DR BRANDI García Consulting Unavailable BALL, DR OSORIO Primary Care Unavailable CYN, DR TONYA Manzo Consulting Unavailabl e ZITYE, DR CURRY Carmona Consulting Unavailable NABEEL, DR PROSPER Douglas Consulting Unavailable CARINA ., ALEJA TORRES Consulting Unavailabl e MARKER ., DR WASHINGTON Consulting Unavailable KANCHAN ., MARY ANN Consulting Unavailable BACHRACHKARTHIK Consulting Unavailable ASHLEY GARIBAY Admitting Unavailable PHOENIX, ASHLEY Cortes Attending Unavailable MARIAELENA, DR IRCH Hernandez Consulting Unavailable LILLIE, DR OSORIO Primary Care Unavailable ASHLEY GARIBAY Consulting Unavailable BALL, DR OSORIO Primary Care Unavailable BROTHERS, BRANDI Attending Unavailable BROTHERS, BRANDI Admitting Unavailable BROTHERS, BRANDI Consulting Unavailable BALL, DR OSORIO Consulting Unavailable BALL, DR OSORIO Attending Unavailable BALL, DR OSORIO Admitting Unavailable BALL, DR OSORIO Primary Care Unavailable BALL, DR OSORIO Consulting Unavailable LILLIE, DR OSORIO Attending Unavailable BALL, DR OSORIO [...] BALL, DR OSORIO Admitting Unavailable BALL, DR OOSRIO Primary Care Unavailable FAWWAD, DIAMOND H Admitting [...] Unavailable BALL, DR OSORIO Primary Care Unavailable TORIKOWILLIAM Attending Unavailable TODD, WILLIAM Cortes Admitting Unavailable [...] Unavailable ALYSON ., PARAMJIT LUZ Consulting Unavailable CONSTANTIN BALL Consulting Unavailable ANNALEE PARADA Consulting Unavailable MISBAH [...] Primary Care Unavailable SARTHAK PARNELL Attending Unavailable MILAGRO QUEEN Referring Unavailable BERNICEMILAGRO BRISCOE Referring Unavailable DEVON MOREIRA Referring Unavailable HINA PETERSON Attending Unavailable DEVON MOREIRA Primary Care Unavailable ARTUR CHEN Referring Unavailable LILLIE, DEVON García Primary Care Unavailable Allergies Allergy Classification Reported Allergen(s) Allergy Type Date of Onset Reaction(s) Facility (20 sources) Pyridostigmine; Translations: [PYRIDOSTIGMINE BROMIDE] Drug Allergy 2 GI Upset [facility] Work Phone: (1 source) ALLERGIES NOT ON FILE; Translations: [ALLERGIES NOT ON FILE] Propensity to adverse reactions (disorder) [facility] Repository Medications Current Medications Medication Drug Class(es) Dates Sig (Normalized) Sig (Original) acetaminophen 500 mg oral tablet (12 sources) take 1 tablet by mouth every six hours Acetaminophen 500 MG 1 tablet as needed Orally every 6 hrs Active take 1 tablet by debi th every eight hours as needed acetaminophen (TYLENOL EXTRA STRENGTH) 5 00 mg tablet Take 500 mg by mouth every 8 hours as needed. 0 Active take 2 tablets by mo [facility] every six hours as needed for pain Comment on above: Take 500 mg by mouth every 8 hours as needed. atorvastatin 40 mg oral tablet (20 sources) HMG-CoA Reductase Inhibitor Start: take 1 tablet by mouth once daily [...] mg intramuscular injection (EVUSHELD) (4 sources) Start: 12-06-19 End: 01-05-20 cilgavimab 300 mg intramuscular injection (EVUSHELD) famotidine 20 mg oral tablet (1 source) Histamine-2 Receptor Antagonist take 1 tablet by mouth every twenty-four hours Famotidine 20 MG 1 tablet at bedtime as needed Orally Once a day Active FreeStyle Albert 14 Day Sensor - (9 sources) Start: 04-06-19 Start: 04-06-2022 Start: 04-06-2022 FreeStyle Libr e 14 Day Sensor - Use to test home BS 6x daily in vitro 4-6x daily for 30 days Mar, Active Start: 04-06-2022 FreeStyle Libr e 14 Day Sensor - as directed Mar, Active FreeStyle Albert 14 Day Sensor - Use to test home BS 6x daily transcutaneous 4-6x daily for 28 days Active insulin aspart, human (1 source) Insulin Analog Start: 01-23-2019 inject 1 dose by subcutaneous injection three times daily at mealtime Insulin Aspart U-100 Active 100 sliding scale dose SUBCUT THREE TIMES DAILY WITH MEALS January 23, 2019 1:00am K Phos [place]-S[facility] Phos Di & [place] 155-852-130 MG (5 sources) take 155-852 tablets by mouth twice daily K Phos [place]-Sod Phos Di & [place] 155-852-130 MG 1 tablet Orally twice daily Active take 155-852 tablets by mouth four times daily take 155-852 tablets by mouth four times daily K Phos [place]-Sod Phos Di & [place] 155-852-130 MG 1 tablet Orally Four times a [...] needed Orally tid as needed for pain Sep, Active Start: 03-25-2022 take 1 tablet [...] Drug Class(es) Dates Sig (Normalized) Sig (Original) albuterol 0.833 mg/ml / ipratropium bromide 0.167 mg/ml inhalation solution (20 sources) Anticholinergic, beta2-Adrenergic Agonist Start: 12-11-2021 take 3 mL by inhalation every six hours as needed ipratropium-albut edgard (DUONEB) 0.5 mg-3 mg(2.5 mg base)/3 mL nebu Inhale 3 mL as instructed every 6 hours as needed for wheezing/shortnes s of breath. 0 12/11/2021 Active take 3 mL by inhalat ion every six hours as needed Ipratropium-Albuterol 0.5-2.5 (3) MG/3ML 3 mL as needed Inhalation every 6 hrs Active Comment on above: Inhale 3 mL as [...] 10/01/2021 Active take 1 tablet by debi th every twenty-four hours Aspirin 81 MG 1 tablet Orally Once a day Active Comment on above: Take 1 tablet by debi th once daily. butenafine hydrochloride 10 mg/ml topical [...] needed. docusate sodium 50 mg / sennosides, correction 8.6 mg oral tablet (20 sources) Start: take 1 tablet by mouth twice daily senna-docusate (SENNA-S) 8.6-50 mg per tablet Take 1 tablet by mouth twice daily. 0 12/11/2021 Active Comment on above: Take 1 tablet by debi th twice daily. Food Supplement, Lactose-Free (ENSURE MAX [...] 1 tablet by debi th once daily. sodium hypochlorite 2.5 mg/ml topical [...] 23, 2019 1:00am inject 18 [IU] by nyaak bcutaneous injection once daily at bedtime Lantus 100 UNIT/ML 18 units Subcutaneous QHS Active inject 18 [IU] by nayak bcutaneous injection [...] injectable solution (20 sources) Insulin Analog Start: 022 inject 6 [IU] by subcutaneous injection three [...] notify provider latanoprost 0.05 mg/ml ophthalmic solution (18 sources) Prostaglandin Analog Start: 02-25-2022 latanoprost (XALATAN) [...] Active take 1 drop(s) into the eye(s) at bedtime Latanoprost 0.005 % 1 drop into affected eye in the evening Ophthalmic at hs Active take 1 drop(s) into the eye(s) [...] 2:20pm Mycophenolate Mo fetil 250 MG Orally Not-Taking/PRN Comment on above: TAKE 2 CAPSULES BY [...] by mouth daily with lunch. Magic Cup Cochran with lunch 7110 mL 0 12/11/2021 Active Comment on above: Take 237 mL by mouth daily with lunch. Magic Cup Cochran with lunch polyethylene glycol 3350 17306 mg powder for oral solution (20 sources) Osmotic Laxative Start: 2 polyethylene glycol 3350 (MIRALAX, GLYCOLAX) 17 gram packet Take 1 Packet by mouth once daily. Dissolve dose in 4 - 8 ounces of liquid and take as directed. 0 12/12/2021 Active MiraLax 17 GM/SC OOP 1 scoop mixed with 8 ounces of fluid Orally Once a day Active MiraLax - as dir ected Orally [...] mg oral tablet (20 sources) Start: 01-24-20 19 End: 07-16-19 22 take 1 tablet by mouth once daily predniSONE (DELTASONE) 5 mg tablet TAKE 1 TABLET BY MOUTH EVERY DAY 90 tablet 3 07/15/2021 Active Comment on above: TAKE 1 TABLET BY DEBI TH EVERY DAY simvastatin 40 mg oral tablet (4 sources) HMG-CoA Reductase Inhibitor Start: 10-29-19 End: 12-31-19 take 40 mg by mouth once daily [...] one (1) tablet M-W-F 45 tablet 3 08/29/2012 Suspended take 1 tablet by debi th every twenty-four hours Comment on above: Take by mouth. Take one (1) tablet M-W-F tacrolimus 1 mg oral capsule (20 sources) [...] Start: 01-23-2019 take 1 capsule by mo uth twice daily tacrolimus IR (PROGRAF) 1 mg capsule Take 1 capsule by mouth twice daily. 180 capsule 3 10/09/2021 Suspended Comment on above: TAKE 1 CAPSULE BY MO UTH TWICE A DAY*Z94.0* Take 1 capsule by mo uth twice daily. Take 2 capsules by m [...] daily. 30 tablet 0 10/01/2021 Suspended Coumadin 4mg at hs Active Coumadin Active Comment on above: Take 1 [...] Coronary arteriosclerosis; Translations: [Atherosclerotic heart disease of 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] Episodic Other aftercare (10 sources) snf (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 of insulin; Translations: [CORRECTION CURRENT USE OF INSULIN] Onset: 2 Episodic Other aftercare (5 sources) terminal 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 supervisor (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 of anticoagulants; Translations: [CORRECTION CURRNT USE ANTICOAGULANTS] Onset: 3 Episodic Other aftercare (5 sources) Encounter for therapeutic drug level monitoring; Translations: [ENC THERAPEUTC DRUG LEVL MONITORING] Onset: 3 Episodic Other bone disease and musculoskeletal deformities (1 source) History of amputation of right leg through tibia and fibula; Translations: [Acquired absence of right leg below knee] Chronic Other bone disease and musculoskeletal deformities (13 sources) Acquired absence of left leg below [...] feces] 07-20-2022 Episodic Other nervous system disorders (5 sources) Phantom pain following amputation of lower [...] 07-30-2006 Episodic Other aftercare (2 sources) Other senior living (current) drug therapy; Translations: [OTH LEAD RIDER CURRENT DRUG THERAPY] Onset: 02-05-2022 Episodic Other aftercare (4 sources) Encounter for orthopedic aftercare following surgical amputation; Translations: [ENC ORTHOPED AFTERCARE FLW SURG AMP] Onset: 02-05-2022 Episodic Other aftercare (4 sources) snf (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 of antibiotics; Translations: [LEAD RIDER CURRENT USE ANTIBIOTICS] Onset: 12-20-2021 Episodic Other aftercare (1 source) snf (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 of aspirin; Translations: [CORRECTION CURRENT USE OF ASPIRIN] Onset: 01-19-2022 Episodic [...] Test Name Value Interpretation Reference Range Facility [facility] ALEX ALMONTE ([id number]) 1945 M Date Time Provider Department 12/25/22 KIDNEY TXP COORDINATORS TXCTGL During your visit today, we recorded the following information about you: Duane Ryan 12/25/2022 10:41 AM Signed Labs 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 artery of extremity w*11/29/2021 Malnutrition of moderate degree (HCC) [E44.0] 12/01/2021 Dermatitis associated with moisture [L30.8] 12/04/2021 Encounter Status:Closed by DUANE RYAN on 01/12/23 [facility] Sonya 11-11-2022 CNPN Telephone (TXCTGL) ALEX ALMONTE ([id number]) 1945 Date Time Provider Department 11/11/22 SAIA PIKEL During your visit today, we recorded the [...] by mouth. Take one (1) tablet -- insulin lispro 100 unit/mL injection Inject 6 [...] by mouth daily with lunch. Magic Cup Cochran with lunch aspirin, enteric coated (ASPIRIN, ENTERIC [...] Marullo, Lisa Lisa, can you contact MR Almonte and have him lower his tacrolimus (prograf) dose to 1 mg in am and 1 mg in pm from current 2mg in am? thanks! RF Pts RN at [facility] reports pts sister picks up Rx from [...] Apply 0. (more content not included)... Normal [facility] Office Visiton 09-09-2022 Follow-up visit [id number] Alex Almonte 1945 M Date Provider Department Center 09/09/2022 1596-SARTHAK PARNELL [facility] Family History Problem Relation Age of Onset Cancer Mother Aneurysm Father Cancer Father Parkinsonism Father Family Status - Relation Status Age at Mother Father Level of Service:25385 [place] OFFICE/OUTPATIENT ESTABLISHED MOD MDM 30-39 MIN Normal [facility] Glucose Poct Glucometerson 0 07-20-2022 Commemt1 Glu2: Cleaned Meter Normal [facility] Comment on above: Result Comment: PERF ORMED BY: [facility] [address] [place] [address] PATHOLOGIST PROPULSION MACHINERY SERVICE ENGINEER JOSE F ELLIOTT M.D. Performed By: #### G LULS #### Point of Care testing , Glucose [Mass/Vol] 176 mg/dL Normal [facility] Comment on above: Result Comment: [facility] Glucose Reference Range is dependent on time and content of last meal. Glucose of more than 200 mg/dL in a nonstressed, ambulatory subject supports the diagnosis of Diabetes Mellitus. Performed By: #### G LULS #### Point of Care testing , FK506 (TACROLIMUS) WHOLE BLO ODon 07-12-2022 Tacrolimus (FK506), Blood 10.9 ng/mL Normal 2.0-20.0 [facility] Comment on above: Result Comment: Trou gh (immediately following transplant) 15.0 . Trough (steady state, 2 weeks or more after transplant): 3.0 - 8.0 . Performed by LC-MS/MS technology. Performed By: #### F [id number] ####[facility] [address] [place], [place] [address]Dr. Farhat Leal CBC AUTO DIFFon 07-10-2022 BASO # 0.0 103/ul Normal 0.0-0.1 [facility] Comment on above: Performed By: #### C BC ####[facility] Wy[address]uz[address] [place], [place] [address]Dr. Farhat Leal Basophils/100 WBC (Bld) 0.5 % Normal 0.2-2.0 [facility] Comment on above: Performed By: #### C BC ####[facility] [address] [place], [place] [address]Dr. Farhat Leal EO # 0.3 103/ul Normal 0.0-0.7 [facility] Comment on above: Performed By: #### C BC ####[facility] V[address] [place], [place] [address]Dr. Farhat Leal Eosinophils/100 WBC (Bld) 4.9 % Normal 0.9-7.0 [facility] Comment on above: Performed By: #### C BC ####[facility] [address] [place], [place] [address]Dr. Farhat Leal Erythrocyte distribution width (RBC) [Ratio] 13.8 % Normal 11.0-15.0 [facility] Comment on above: Performed By: #### C BC ####[facility] [address] [place], [place] [address]Dr. Farhat Leal Hematocrit (Bld) [Volume fraction] 36.6 % Critically low 42.0-54.0 [facility] Comment on above: Performed By: #### C BC ####[facility] [address] [place], [place] [address]Dr. Farhat Leal Hemoglobin (Bld) [Mass/Vol] 12.2 g/dL Critically low 14.0-18.0 [facility] Comment on above: Performed By: #### C BC ####[facility] [address] [place] [id number]. Madelynlorri Elvis IG # 0.01 10e3/ul Normal 0.00-0.03 [facility] Comment on above: Performed By: #### C BC ####[facility] [address] [place] [id number]. Farhat Leal IG % 0.2 % Normal 0.0-0.5 [facility] Comment on above: Performed By: #### C BC ####[facility] [address] [place] [address]Dr. Farhat Leal LYMPH # 2.2 103/ul Normal 1.2-3.8 [facility] Comment on above: Performed By: #### C BC ####[facility] [address] [place] [address]Dr. Farhat Leal Lymphocytes/100 WBC (Bld) 33.9 % Normal 20.5-60.0 [facility] Comment on above: Performed By: #### C BC ####[facility] [address] [place] [id number]. Farhat Leal MANUAL DIFF REQ NO Normal [facility] Comment on above: Performed By: #### C BC ####[facility] [address] [place] [id number]. Farhat Leal MCH (RBC) [Entitic mass] 31.0 pg Normal 25.9-34.0 [facility] Comment on above: Performed By: #### C BC ####[facility] [address] [place] [id number]. Farhat Leal MCHC (RBC) [Mass/Vol] 33.3 g/dL Normal 29.9-35.2 [facility] Comment on above: Performed By: #### C BC ####[facility] [address] [place] [id number]. Farhat Leal MCV (RBC) [Entitic vol] 93.1 fL Normal 80.0-94.0 [facility] Comment on above: Performed By: #### C BC ####[facility] [address] [place] [id number]. Farhat Leal MONO # 0.7 103/ul Normal 0.3-0.8 [facility] Comment on above: Performed By: #### C BC ####[facility] [address] [place] [id number]. Farhat Leal Monocytes/100 WBC (Bld) 10.8 % Normal 1.7-12.0 [facility] Comment on above: Performed By: #### C BC ####[facility] [address] [place] [id number]. Farhat Leal NEUT # 3.2 103/ul Normal 1.4-6.5 [facility] Comment on above: Performed By: #### C BC ####[facility] [address] [place] [address]Dr. Farhat Leal Neutrophils/100 WBC (Bld) 49.7 % Normal 43.0-75.0 [facility] Comment on above: Performed By: #### C BC ####[facility] [address] [place] [id number]. Farhat Leal Platelet mean volume (Bld) [Entitic vol] 10.9 fL Normal 9.5-13.5 [facility] Comment on above: Performed By: #### C BC ####[facility] [address] [place] [id number]. Farhat Leal PLT 195 103/ul Normal 150-450 [facility] Comment on above: Performed By: #### C BC ####[facility] [address] [place] [id number]. Farhat Leal RBC 3.93 106/ul Critically low 4.70-6.10 [facility] Comment on above: Performed By: #### C BC ####[facility] Y[address]gos[address]ocd[address] [place] [id number]. Farhat Leal WBC 6.4 103/ul Normal 4.0-11.0 [facility] Comment on above: Performed By: #### C BC ####[facility] [address] [place] [address]Dr. Farhat Leal MAGNESIUMon 07-10-2022 Magnesium [Mass/Vol] 1.9 mg/dL Normal 1.8-2.4 [facility] Comment on above: Performed By: #### M Anais PHOS ####[facility] [address] [place] [address]Dr. Farhat Leal PHOSPHORUSon 07-10-2022 Phosphate [Mass/Vol] 4.7 mg/dL Normal 2.6-4.7 [facility] Comment on above: Performed By: #### M ANA ManzoS ####[facility] [address]pat[address] [place] [address]Dr. Farhat Leal PROF 14(COMP METB)on 023 Albumin [Mass/Vol] 2.7 g/dL Critically low 3.4-5.0 [facility] Comment on above: Performed By: #### C MP ####[facility] [address] [place], [place] [address]Dr. Farhat Leal Albumin/Globulin [Mass ratio] 0.8 {ratio} Normal [facility] Comment on above: Performed By: #### C MP ####[facility] [address]eh[address] [place], [place] [address]Dr. Farhat Leal ALP [Catalytic activity/Vol] 59 U/L Normal 46-116 [facility] Comment on above: Performed By: #### C MP ####[facility] C[address]qsd[address] [place], [place] [address]Dr. Farhat Leal ALT [Catalytic activity/Vol] 16 U/L Normal 16-63 [facility] Comment on above: Performed By: #### C MP ####[facility] Cdcdyxafcg[address] [place], [place] [address]Dr. Farhat Leal Anion gap [Moles/Vol] 12.3 mmol/L Normal [facility] Comment on above: Performed By: #### C MP ####[facility] W[address]qklugsc[address] [place], [place] [address]Dr. Farhat Leal AST [Catalytic activity/Vol] 17 U/L Normal 15-37 [facility] Comment on above: Performed By: #### C MP ####[facility] [address] [place] [address]Dr. Farhat Elvis Bilirubin [Mass/Vol] 0.5 mg/dL Normal 0.2-1.0 [facility] Comment on above: Performed By: #### C MP ####[facility] Omh[address]yr[address] [place], [place] [address]Dr. Farhat Elvis Calcium [Mass/Vol] 8.5 mg/dL Normal 8.5-10.1 [facility] Comment on above: Performed By: #### C MP ####[facility] Wovxdc[address]fd[address] [place], [place] [address]Dr. Farhat Elvis Chloride [Moles/Vol] 104 mmol/L Normal 98-107 [facility] Comment on above: Performed By: #### C MP ####[facility] H[address]wcdxzf[address] [place], [place] [address]Dr. Farhat Elvis CO2 [Moles/Vol] 27.6 mmol/L Normal 21.0-32.0 [facility] Comment on above: Performed By: #### C MP ####[facility] [address] [place], [place] [address]Dr. Farhat Elvis Creatinine [Mass/Vol] 1.79 mg/dL Critically high 0.70-1.30 [facility] Comment on above: Performed By: #### C MP ####[facility] Ebq[address]xx[address] [place], [place] [address]Dr. Farhat Elvis EGFR-AF BURUNDIAN 45 mL/min/1.73m2 Critically low >=60 [facility] Comment on above: Performed By: #### C MP ####[facility] Ore[address]uriwp[address] [place], [place] [address]Dr. Fahrat Leal EGFR-NON AF BURUNDIAN 37 mL/min/1.73m2 Critically low >=60 [facility] Comment on above: Performed By: #### C MP ####[facility] I[address] [place], [place] [address]Dr. Farhat Leal Globulin (S) [Mass/Vol] 3.2 g/dL Normal [facility] Comment on above: Performed By: #### C MP ####[facility] [address] [place] [address]Dr. Farhat Leal Glucose [Mass/Vol] 203 mg/dL Critically high 74-106 T [facility] Comment on above: Performed By: #### C MP ####[facility] [address]cr[address] [place] [address]Dr. Farhat Leal Potassium [Moles/Vol] 3.9 mmol/L Normal 3.5-5.1 [facility] Comment on above: Performed By: #### C MP ####[facility] [address] [place], [place] [address]Dr. Farhat Leal Protein [Mass/Vol] 5.9 g/dL Critically low 6.4-8.2 [facility] Comment on above: Performed By: #### C MP ####[facility] Ga[address]fs[address] [place], [place] [address]Dr. Farhat Leal Sodium [Moles/Vol] 140 mmol/L Normal 136-145 [facility] Comment on above: Performed By: #### C MP ####[facility] N[address]wb[address] [place], [place] [address]Dr. Farhat Leal Urea nitrogen [Mass/Vol] 61.0 mg/dL Critically high 7.0-18.0 [facility] Comment on above: Performed By: #### C MP ####[facility] I[address]tc[address] [place], [place] [address]Dr. Farhat Leal Urea nitrogen/Creatinine [Mass ratio] 34.1 mg/mg Normal [facility] Comment on above: Performed By: #### C MP ####[facility] Udeagpkezx[address] [place], [place] [address]Dr. Farhat Leal PROTIMEon 07-10-2022 INR Coag (PPP) [Relative time] 2.95 {INR} Normal [facility] Comment on above: Performed By: #### P T ####[facility] Paqlpwxxfr6[address] [place], [place] [address]Dr. Farhat Leal INR GUIDELINES SEE BELOW Normal [facility] Comment on above: Result Comment: MALINA RED INR: 2.0 - 3.0 CONDITIONS NOT LISTED BELOW 2.5 - 3.5 FOR PROSTHETIC HEART VALVE REPLACEMENT 2.5 - 3.5 RECURRENT THROMBOSIS Performed By: #### P T ####[facility] Yoctzzfyyc9[address] [place], [place] [address]Dr. Farhat Leal PT Coag (PPP) [Time] 29.4 s Critically high 9.0-11.6 [facility] Comment on above: Performed By: #### P T ####[facility] Uglvmmmuez6[address] [place], [place] [address]Dr. Farhat Leal FK506 (TACROLIMUS) WHOLE BLO ODon 07-07-2022 Tacrolimus (FK506), Blood 8.3 ng/mL Normal 2.0-20.0 [facility] Comment on above: Result Comment: Trou gh (immediately following transplant) 15.0 . Trough (steady state, 2 weeks or more after transplant): 3.0 - 8.0 . Performed by LC-MS/MS technology. Performed By: #### F K506T ####[facility] Iwljytbaly57[address] [place], [place] [address]Dr. Farhat Leal CBC AUTO DIFFon 07-03-2022 BASO # 0.0 103/ul Normal 0.0-0.1 [facility] Comment on above: Performed By: #### C BC ####[facility] Qzuwdbsxzt738[address] [place], [place] [address]Dr. Farhat Leal Basophils/100 WBC (Bld) 0.6 % Normal 0.2-2.0 [facility] Comment on above: Performed By: #### C BC ####[facility] Eqchxmehfd027[address] [place], [place] [address]Dr. Farhat Leal EO # 0.3 103/ul Normal 0.0-0.7 [facility] Comment on above: Performed By: #### C BC ####[facility] Luagknkvhz232[address] [place], [place] [address]Dr. Farhat Leal Eosinophils/100 WBC (Bld) 4.1 % Normal 0.9-7.0 [facility] Comment on above: Performed By: #### C BC ####[facility] Z[address]znuewcr[address] [place] [address]Dr. Farhat Leal Erythrocyte distribution width (RBC) [Ratio] 14.0 % Normal 11.0-15.0 [facility] Comment on above: Performed By: #### C BC ####[facility] Sgxiqrbmsx3625[address] [place], [place] [address]Dr. Farhat Leal Hematocrit (Bld) [Volume fraction] 35.9 % Critically low 42.0-54.0 [facility] Comment on above: Performed By: #### C BC ####[facility] Xbyfqzfrcw8787[address] [place], [place] [address]Dr. Farhat Leal Hemoglobin (Bld) [Mass/Vol] 12.0 g/dL Critically low 14.0-18.0 [facility] Comment on above: Performed By: #### C BC ####[facility] Iijjdclaqd3052[address] [place], [place] [address]Dr. Farhat Leal IG # 0.04 10e3/ul Critically high 0.00-0.03 [facility] Comment on above: Performed By: #### C BC ####[facility] Nxusoizzsv1197[address] [place], [place] [address]Dr. Farhat Leal IG % 0.6 % Critically high 0.0-0.5 [facility] Comment on above: Performed By: #### C BC ####[facility] Ercmaoifxn954[address] [place], [place] [address]Dr. Farhat Leal LYMPH # 1.5 103/ul Normal 1.2-3.8 [facility] Comment on above: Performed By: #### C BC ####[facility] Ufdixasdsb2647[address] [place], [place] [address]Dr. Farhat Leal Lymphocytes/100 WBC (Bld) 21.5 % Normal 20.5-60.0 [facility] Comment on above: Performed By: #### C BC ####[facility] Wyhbdsjjyq4188[address] [place], [place] [address]Dr. Farhat Leal MANUAL DIFF REQ NO Normal [facility] Comment on above: Performed By: #### C BC ####[facility] Uymbkorjbs28[address] [place] [phone]. Farhat Elvis MCH (RBC) [Entitic mass] 30.8 pg Normal 25.9-34.0 [facility] Comment on above: Performed By: #### C BC ####[facility] Ryiyfzcuec24[address] [place] [address]Dr. Farhat Elvis MCHC (RBC) [Mass/Vol] 33.4 g/dL Normal 29.9-35.2 [facility] Comment on above: Performed By: #### C BC ####[facility] Pilxrqggod6074[address] [place], [place] [address]Dr. Madelynlorri Leal MCV (RBC) [Entitic vol] 92.1 fL Normal 80.0-94.0 [facility] Comment on above: Performed By: #### C BC ####[facility] Dicvfeascl2310[address] [place], [place] [address]Dr. Farhat Leal MONO # 0.6 103/ul Normal 0.3-0.8 [facility] Comment on above: Performed By: #### C BC ####[facility] Tqwiwgxyjm2567[address] [place], [place] [address]Dr. Madelynlorri Leal Monocytes/100 WBC (Bld) 8.7 % Normal 1.7-12.0 [facility] Comment on above: Performed By: #### C BC ####[facility] Hrvacixwdb7046[address] [place], [place] [address]Dr. Farhat Leal NEUT # 4.4 103/ul Normal 1.4-6.5 [facility] Comment on above: Performed By: #### C BC ####[facility] Luwsjhrnbx9562[address] [place], [place] [address]DrSkylar Leal Neutrophils/100 WBC (Bld) 64.5 % Normal 43.0-75.0 [facility] Comment on above: Performed By: #### C BC ####[facility] Zmidldcdds6515[address] [place], [place] [address]Dr. Farhat Leal Platelet mean volume (Bld) [Entitic vol] 10.1 fL Normal 9.5-13.5 [facility] Comment on above: Performed By: #### C BC ####[facility] Dsxjjhrvwn28[address] [place] [address]Dr. Madelynlorri Elvis PLT 177 103/ul Normal 150-450 [facility] Comment on above: Performed By: #### C BC ####[facility] Pvnhmuxmvv2775 [place] [phone]. Madelynlorri Elvis RBC 3.90 106/ul Critically low 4.70-6.10 [facility] Comment on above: Performed By: #### C BC ####[facility] Pojehgyilv5252 [place] [phone]. Madelynlorri Elvis WBC 6.8 103/ul Normal 4.0-11.0 [facility] Comment on above: Performed By: #### C BC ####[facility] Ashffimtgt0439 [place] [address]Dr. Farhat Leal PROF 14(COMP METB)on 023 Albumin [Mass/Vol] 2.8 g/dL Critically low 3.4-5.0 [facility] Comment on above: Performed By: #### C MP ####[facility] Hpwozmeesv7698 [place] [address]Dr. Farhat Leal Albumin/Globulin [Mass ratio] 0.8 {ratio} Normal [facility] Comment on above: Performed By: #### C MP ####[facility] Xajimaxaaf5826 [place] [address]Dr. Farhat Leal ALP [Catalytic activity/Vol] 68 U/L Normal 46-116 [facility] Comment on above: Performed By: #### C MP ####[facility] Zkhtpyruap8691 [place] [address]Dr. Farhat Leal ALT [Catalytic activity/Vol] 20 U/L Normal 16-63 [facility] Comment on above: Performed By: #### C MP ####[facility] Pkchjtebeg8444 [place] [address]DrSkylar Leal Anion gap [Moles/Vol] 11.1 mmol/L Normal [facility] Comment on above: Performed By: #### C MP ####[facility] Rcpxyvcvds0472 [place] [phone]. Farhat Leal AST [Catalytic activity/Vol] 22 U/L Normal 15-37 [facility] Comment on above: Performed By: #### C MP ####[facility] Myxkdwnhqn6630 [place] [phone]. Farhat Leal Bilirubin [Mass/Vol] 0.4 mg/dL Normal 0.2-1.0 [facility] Comment on above: Performed By: #### C MP ####[facility] Fuzfvnymbh3357 [place] [address]Dr. Farhat Leal Calcium [Mass/Vol] 8.5 mg/dL Normal 8.5-10.1 [facility] Comment on above: Performed By: #### C MP ####[facility] Ntgpxztdvq9582[address] [place], [place] [address]Dr. Farhat Leal Chloride [Moles/Vol] 106 mmol/L Normal 98-107 [facility] Comment on above: Performed By: #### C MP ####[facility] Xbpgntowbo1968[address] [place], [place] [address]Dr. Farhat Leal CO2 [Moles/Vol] 29.1 mmol/L Normal 21.0-32.0 [facility] Comment on above: Performed By: #### C MP ####[facility] Twkqzmlghz9[address] [place], [place] [address]Dr. Farhat Leal Creatinine [Mass/Vol] 1.70 mg/dL Critically high 0.70-1.30 [facility] Comment on above: Performed By: #### C MP ####[facility] Svfrbauynm7277 [place] [phone]. Farhat Elvis EGFR-AF BURUNDIAN 48 mL/min/1.73m2 Critically low >=60 [facility] Comment on above: Performed By: #### C MP ####[facility] Gipszqxttu9671 [place] [phone]. Farhat Leal EGFR-NON AF BURUNDIAN 39 mL/min/1.73m2 Critically low >=60 [facility] Comment on above: Performed By: #### C MP ####[facility] Mlypncxjao1193 [place] [address]Dr. Farhat Leal Globulin (S) [Mass/Vol] 3.6 g/dL Normal [facility] Comment on above: Performed By: #### C MP ####[facility] Durnpxnbaw2632 [place] [address]Dr. Farhat Leal Glucose [Mass/Vol] 312 mg/dL Critically high 74-106 [facility] Comment on above: Performed By: #### C MP ####[facility] Xopwznivil4908 [place] [address]Dr. Farhat Leal Potassium [Moles/Vol] 4.2 mmol/L Normal 3.5-5.1 [facility] Comment on above: Performed By: #### C MP ####[facility] Xrvibqmoke9018[address] [place], [place] [address]Dr. Farhat Leal Protein [Mass/Vol] 6.4 g/dL Normal 6.4-8.2 [facility] Comment on above: Performed By: #### C MP ####[facility] Vdlpqdbwqq0894[address] [place], [place] [address]Dr. Farhat Leal Sodium [Moles/Vol] 142 mmol/L Normal 136-145 [facility] Comment on above: Performed By: #### C MP ####[facility] Zqcmksvvzr351[address] [place], [place] [address]Dr. Farhat Leal Urea nitrogen [Mass/Vol] 49.0 mg/dL Critically high 7.0-18.0 [facility] Comment on above: Performed By: #### C MP ####[facility] Bnfaahyyub972[address] [place], [place] [address]Dr. Farhat Leal Urea nitrogen/Creatinine [Mass ratio] 28.8 mg/mg Normal [facility] Comment on above: Performed By: #### C MP ####[facility] Gwqrsgjkcg1393 [place] [address]Dr. Farhat Elvis PROTIMEon 07-03-2022 INR Coag (PPP) [Relative time] 2.23 {INR} Normal [facility] Comment on above: Performed By: #### P T ####[facility] Qrhrzgzaym26[address] [place] [address]Dr. Farhat Leal INR GUIDELINES SEE BELOW Normal [facility] Comment on above: Result Comment: MALINA RED INR: 2.0 - 3.0 CONDITIONS NOT LISTED BELOW 2.5 - 3.5 FOR PROSTHETIC HEART VALVE REPLACEMENT 2.5 - 3.5 RECURRENT THROMBOSIS Performed By: #### P T ####[facility] Iakwitqivp6[address] [place], [place] [address]Dr. Farhat Leal PT Coag (PPP) [Time] 22.6 s Critically high 9.0-11.6 [facility] Comment on above: Performed By: #### P T ####[facility] Flrzztheoj0918[address] [place], [place] [address]Dr. Farhat Leal FK506 (TACROLIMUS) WHOLE BLO ODon 06-29-2022 Tacrolimus (FK506), Blood 12.2 ng/mL Normal 2.0-20.0 [facility] Comment on above: Result Comment: Trou gh (immediately following transplant) 15.0 . Trough (steady state, 2 weeks or more after transplant): 3.0 - 8.0 . Performed by LC-MS/MS technology. Performed By: #### F K506T ####[facility] Adwpagmcrj292[address] [place], [place] [address]Dr. Farhat Leal CBC AUTO DIFFon 06-26-2022 BASO # 0.0 103/ul Normal 0.0-0.1 [facility] Comment on above: Performed By: #### C BC ####[facility] Ehorpannnt1882[address] [place], [place] [address]Dr. Farhat Leal Basophils/100 WBC (Bld) 0.5 % Normal 0.2-2.0 [facility] Comment on above: Performed By: #### C BC ####[facility] Aihpnmxrgl3418 [place] [address]Dr. Frahat Leal EO # 0.3 103/ul Normal 0.0-0.7 [facility] Comment on above: Performed By: #### C BC ####[facility] Ubkjzubdkq3930 [place] [phone]. Farhat Leal Eosinophils/100 WBC (Bld) 4.3 % Normal 0.9-7.0 [facility] Comment on above: Performed By: #### C BC ####[facility] Iwoubemycc6590 [place] [address]Dr. Farhat Leal Erythrocyte distribution width (RBC) [Ratio] 14.1 % Normal 11.0-15.0 [facility] Comment on above: Performed By: #### C BC ####[facility] Dgfkwzspae9906[address] [place], [place] [address]Dr. Farhat Leal Hematocrit (Bld) [Volume fraction] 35.4 % Critically low 42.0-54.0 [facility] Comment on above: Performed By: #### C BC ####[facility] Zlacvzwolj7552[address] [place], [place] [address]Dr. Farhat Leal Hemoglobin (Bld) [Mass/Vol] 11.8 g/dL Critically low 14.0-18.0 [facility] Comment on above: Performed By: #### C BC ####[facility] Mhzcryahnv6944[address] [place], [place] [address]Dr. Farhat Leal IG # 0.02 10e3/ul Normal 0.00-0.03 [facility] Comment on above: Performed By: #### C BC ####[facility] Shrebhjkot5603[address] [place], [place] [address]Dr. Farhat Leal IG % 0.3 % Normal 0.0-0.5 [facility] Comment on above: Performed By: #### C BC ####[facility] Btflcpmbqy7186[address] [place], [place] [address]Dr. Farhat Leal LYMPH # 2.4 103/ul Normal 1.2-3.8 [facility] Comment on above: Performed By: #### C BC ####[facility] Aehkjgwuwp7212[address] [place], [place] [address]Dr. Farhat Leal Lymphocytes/100 WBC (Bld) 40.4 % Normal 20.5-60.0 [facility] Comment on above: Performed By: #### C BC ####[facility] Nbbbqfukla3125 [place] [phone]. Farhat Leal MANUAL DIFF REQ NO Normal [facility] Comment on above: Performed By: #### C BC ####[facility] Ovfawxhtwb7151 [place] [phone]. Farhat Leal MCH (RBC) [Entitic mass] 31.0 pg Normal 25.9-34.0 [facility] Comment on above: Performed By: #### C BC ####[facility] Xfgawtwidt1926[address] [place], [place] [address]Dr. Farhat Leal MCHC (RBC) [Mass/Vol] 33.3 g/dL Normal 29.9-35.2 [facility] Comment on above: Performed By: #### C BC ####[facility] Addaqksifu7200[address] [place], [place] [address]Dr. Farhat Leal MCV (RBC) [Entitic vol] 92.9 fL Normal 80.0-94.0 [facility] Comment on above: Performed By: #### C BC ####[facility] Gopzzvjzum37[address] [place], [place] [address]Dr. Farhat Leal MONO # 0.7 103/ul Normal 0.3-0.8 [facility] Comment on above: Performed By: #### C BC ####[facility] Kicgbymavw1432[address] [place], [place] [address]Dr. Farhat Elvis Monocytes/100 WBC (Bld) 11.1 % Normal 1.7-12.0 [facility] Comment on above: Performed By: #### C BC ####[facility] Jyrychgsds[address] [place], [place] [address]Dr. Farhat Leal NEUT # 2.6 103/ul Normal 1.4-6.5 [facility] Comment on above: Performed By: #### C BC ####[facility] Jmdtoyxxks8383[address] [place], [place] [address]Dr. Farhat Leal Neutrophils/100 WBC (Bld) 43.4 % Normal 43.0-75.0 [facility] Comment on above: Performed By: #### C BC ####[facility] Hrcxypefgs5051 [place] [phone]. Farhat Leal Platelet mean volume (Bld) [Entitic vol] 10.4 fL Normal 9.5-13.5 [facility] Comment on above: Performed By: #### C BC ####[facility] Wcnskpwmpm7165 [place] [phone]. Farhat Leal PLT 211 103/ul Normal 150-450 [facility] Comment on above: Performed By: #### C BC ####[facility] Qijedczslp4889 [place] [phone]. Farhat Leal RBC 3.81 106/ul Critically low 4.70-6.10 [facility] Comment on above: Performed By: #### C BC ####[facility] Xqgmekaese9168 [place] [phone]. Farhat Leal WBC 6.0 103/ul Normal 4.0-11.0 [facility] Comment on above: Performed By: #### C BC ####[facility] Xumlpwgswp5067 [place] [address]Dr. Farhat Leal PROF 14(COMP METB)on 023 Albumin [Mass/Vol] 2.6 g/dL Critically low 3.4-5.0 [facility] Comment on above: Performed By: #### C MP ####[facility] Yyesijmtux3682 [place] [phone]. Farhat Leal Albumin/Globulin [Mass ratio] 0.8 {ratio} Normal [facility] Comment on above: Performed By: #### C MP ####[facility] Odgugtzast5282 [place] [phone]. Farhat Leal ALP [Catalytic activity/Vol] 64 U/L Normal 46-116 [facility] Comment on above: Performed By: #### C MP ####[facility] Jrfcodlpuo5059 [place] [address]Dr. Farhat Leal ALT [Catalytic activity/Vol] 18 U/L Normal 16-63 [facility] Comment on above: Performed By: #### C MP ####[facility] Bgayouetxh0389 [place] [phone]. Farhat Leal Anion gap [Moles/Vol] 10.2 mmol/L Normal [facility] Comment on above: Performed By: #### C MP ####[facility] Lhcrkeznzb6411 [place] [phone]. Farhat Leal AST [Catalytic activity/Vol] 16 U/L Normal 15-37 [facility] Comment on above: Performed By: #### C MP ####[facility] Ngbkloxean9837 [place] [phone]. Farhat Leal Bilirubin [Mass/Vol] 0.6 mg/dL Normal 0.2-1.0 [facility] Comment on above: Performed By: #### C MP ####[facility] Srzysdycut0492 [place] [address]Dr. Farhat Leal Calcium [Mass/Vol] 8.5 mg/dL Normal 8.5-10.1 [facility] Comment on above: Performed By: #### C MP ####[facility] Scfitjvcrj5946 [place] [phone]. Farhat Leal Chloride [Moles/Vol] 106 mmol/L Normal 98-107 [facility] Comment on above: Performed By: #### C MP ####[facility] Qlstduulev1630 [place] [phone]. Farhat Leal CO2 [Moles/Vol] 29.8 mmol/L Normal 21.0-32.0 [facility] Comment on above: Performed By: #### C MP ####[facility] Yjslqlwbuo2853 [place] [phone]. Farhat Leal Creatinine [Mass/Vol] 1.60 mg/dL Critically high 0.70-1.30 [facility] Comment on above: Performed By: #### C MP ####[facility] Fewirchhty7857 [place] [phone]. Farhat Leal EGFR-AF BURUNDIAN 51 mL/min/1.73m2 Critically low >=60 [facility] Comment on above: Performed By: #### C MP ####[facility] Umjbabklnb8673 [place] [phone]. Farhat Leal EGFR-NON AF BURUNDIAN 42 mL/min/1.73m2 Critically low >=60 [facility] Comment on above: Performed By: #### C MP ####[facility] Cdhckohhsg7934 [place] [phone]. Farhat Leal Globulin (S) [Mass/Vol] 3.4 g/dL Normal [facility] Comment on above: Performed By: #### C MP ####[facility] Dyjjqowqev7517 [place] [phone]. Farhat Leal Glucose [Mass/Vol] 178 mg/dL Critically high 74-106 [facility] Comment on above: Performed By: #### C MP ####[facility] Ouocnkxchb1701 [place] [phone]. Farhat Leal Potassium [Moles/Vol] 4.0 mmol/L Normal 3.5-5.1 [facility] Comment on above: Performed By: #### C MP ####[facility] Xhjizcejzq2800 [place] [phone]. Farhat Leal Protein [Mass/Vol] 6.0 g/dL Critically low 6.4-8.2 [facility] Comment on above: Performed By: #### C MP ####[facility] Hrvhkynubq3271 [place] [phone]. Farhat Leal Sodium [Moles/Vol] 142 mmol/L Normal 136-145 [facility] Comment on above: Performed By: #### C MP ####[facility] Iqlirxklxm7275 [place] [phone]. Farhat Leal Urea nitrogen [Mass/Vol] 49.0 mg/dL Critically high 7.0-18.0 [facility] Comment on above: Performed By: #### C MP ####[facility] Qbfyhmawwi7372 [place] [phone]. Farhat Leal Urea nitrogen/Creatinine [Mass ratio] 30.6 mg/mg Normal [facility] Comment on above: Performed By: #### C MP ####[facility] Rpjeorlojj9151 [place] [address]Dr. Farhat Leal PROTIMEon 06-26-2022 INR Coag (PPP) [Relative time] 1.77 {INR} Normal [facility] Comment on above: Performed By: #### P T ####[facility] Iyppmiezjn[address] [place], [place] [address]Dr. Farhat Leal INR GUIDELINES SEE BELOW Normal [facility] Comment on above: Result Comment: MALINA RED INR: 2.0 - 3.0 CONDITIONS NOT LISTED BELOW 2.5 - 3.5 FOR PROSTHETIC HEART VALVE REPLACEMENT 2.5 - 3.5 RECURRENT THROMBOSIS Performed By: #### P T ####[facility] Zyeatfaddp39[address] [place], [place] [address]Dr. Farhat Leal PT Coag (PPP) [Time] 18.2 s Critically high 9.0-11.6 [facility] Comment on above: Performed By: #### P T ####[facility] Tfukhusyaz[address] [place], [place] [address]DrSkylar Leal FK506 (TACROLIMUS) WHOLE BLO ODon 06-22-2022 Tacrolimus (FK506), Blood 24.5 ng/mL Invalid Interpretation Code 2.0-20.0 [facility] Comment on above: Result Comment: Trou gh (immediately following transplant) 15.0 . Trough (steady state, 2 weeks or more after transplant): 3.0 - 8.0 . Performed by LC-MS/MS technology.Patient drug level exceeds published reference range. Evaluateclinically for signs of potential toxicity. Performed By: #### F K506T ####[facility] Hkklscicrf8224[address] [place], [place] [address]DrSkylar Leal CBC AUTO DIFFon 06-19-2022 BASO # 0.1 103/ul Normal 0.0-0.1 [facility] Comment on above: Performed By: #### C BC ####[facility] Agclyxvbpt3222 [place] [address]DrSkylar Leal Basophils/100 WBC (Bld) 0.7 % Normal 0.2-2.0 [facility] Comment on above: Performed By: #### C BC ####[facility] Xodivurhbg20[address] [place] [id number]. Farhat Leal EO # 0.4 103/ul Normal 0.0-0.7 [facility] Comment on above: Performed By: #### C BC ####[facility] Rsrlwtujim5474 [place] [phone]. Farhat Leal Eosinophils/100 WBC (Bld) 5.7 % Normal 0.9-7.0 [facility] Comment on above: Performed By: #### C BC ####[facility] Kdigrzqwlk72[address] [place], [place] [address]Dr. Farhat Leal Erythrocyte distribution width (RBC) [Ratio] 14.5 % Normal 11.0-15.0 [facility] Comment on above: Performed By: #### C BC ####[facility] Lkcsrpjwoz23[address] [place], [place] [address]Dr. Farhat Leal Hematocrit (Bld) [Volume fraction] 34.1 % Critically low 42.0-54.0 [facility] Comment on above: Performed By: #### C BC ####[facility] Xhdoidjpio56[address] [place] [address]Dr. Farhat Leal Hemoglobin (Bld) [Mass/Vol] 11.3 g/dL Critically low 14.0-18.0 [facility] Comment on above: Performed By: #### C BC ####[facility] Ghgoljgrbf624[address] [place], [place] [address]Dr. Farhat Leal IG # 0.02 10e3/ul Normal 0.00-0.03 [facility] Comment on above: Performed By: #### C BC ####[facility] Wfmedtbsqp7899 [place] [address]Dr. Farhat Leal IG % 0.3 % Normal 0.0-0.5 [facility] Comment on above: Performed By: #### C BC ####[facility] Kkwihcrcbe053[address] [place], [place] [address]Dr. Farhat Leal LYMPH # 3.1 103/ul Normal 1.2-3.8 [facility] Comment on above: Performed By: #### C BC ####[facility] Jrhwggajtk1567 [place] [phone]. Farhat Leal Lymphocytes/100 WBC (Bld) 40.6 % Normal 20.5-60.0 [facility] Comment on above: Performed By: #### C BC ####[facility] Dulvcdebge6075 [place] [phone]. Farhat Elvis MANUAL DIFF REQ NO Normal [facility] Comment on above: Performed By: #### C BC ####[facility] Wynmbwrbva0154 [place] [phone]. Farhat Elvis MCH (RBC) [Entitic mass] 30.6 pg Normal 25.9-34.0 [facility] Comment on above: Performed By: #### C BC ####[facility] Bjpxjhqgxj4427[address] [place], [place] [address]Dr. Farhat Elvis MCHC (RBC) [Mass/Vol] 33.1 g/dL Normal 29.9-35.2 The [facility] Comment on above: Performed By: #### C BC ####[facility] Ldpdknhayk6358 [place] [phone]. Farhat Elvis MCV (RBC) [Entitic vol] 92.4 fL Normal 80.0-94.0 The [facility] Comment on above: Performed By: #### C BC ####[facility] Wgepyvelyf36[address] [place] [address]Dr. Madelynlorri Elvis MONO # 0.8 103/ul Normal 0.3-0.8 [facility] Comment on above: Performed By: #### C BC ####[facility] Nffabdrtvb2190 [place] [phone]. Madelynlorri Leal Monocytes/100 WBC (Bld) 10.6 % Normal 1.7-12.0 The [facility] Comment on above: Performed By: #### C BC ####[facility] Bpvwvcalhu8[address] [place], [place] [address]Dr. Faraht Leal NEUT # 3.2 103/ul Normal 1.4-6.5 [facility] Comment on above: Performed By: #### C BC ####[facility] Rdawvbczpr3226 [place] [phone]. Farhat Leal Neutrophils/100 WBC (Bld) 42.1 % Critically low 43.0-75.0 [facility] Comment on above: Performed By: #### C BC ####[facility] Bgncofkgbt3930 [place] [phone]. Farhat Leal Platelet mean volume (Bld) [Entitic vol] 10.6 fL Normal 9.5-13.5 [facility] Comment on above: Performed By: #### C BC ####[facility] Aldiuzhlgi2871 [place] [phone]. Farhat Leal PLT 187 103/ul Normal 150-450 [facility] Comment on above: Performed By: #### C BC ####[facility] Woqzjcggaa2849 [place] [phone]. Farhat Leal RBC 3.69 106/ul Critically low 4.70-6.10 [facility] Comment on above: Performed By: #### C BC ####[facility] Bpminzgczb1074 [place] [phone]. Farhat Leal WBC 7.7 103/ul Normal 4.0-11.0 [facility] Comment on above: Performed By: #### C BC ####[facility] Mfovtuszpn4686 [place] [address]Dr. Farhat Leal PROF 14(COMP METB)on 023 Albumin [Mass/Vol] 2.5 g/dL Critically low 3.4-5.0 [facility] Comment on above: Performed By: #### C MP ####[facility] Aeqjxkagxg1163 [place] [address]Dr. Farhat Leal Albumin/Globulin [Mass ratio] 0.8 {ratio} Normal [facility] Comment on above: Performed By: #### C MP ####[facility] Munqwquvoa7966 [place] [phone]. Madelynlorri Elvis ALP [Catalytic activity/Vol] 60 U/L Normal 46-116 [facility] Comment on above: Performed By: #### C MP ####[facility] Oiiudjllyc2936 [place] [phone]. Farhat Leal ALT [Catalytic activity/Vol] 16 U/L Normal 16-63 [facility] Comment on above: Performed By: #### C MP ####[facility] Bjkqccvbzz2520 [place] [phone]. Farhat Leal Anion gap [Moles/Vol] 9.1 mmol/L Normal [facility] Comment on above: Performed By: #### C MP ####[facility] Plmwybxppo3888 [place] [phone]. Farhat Leal AST [Catalytic activity/Vol] 31 U/L Normal 15-37 [facility] Comment on above: Performed By: #### C MP ####[facility] Oklieovlhx1426 [place] [address]Dr. Farhat Leal Bilirubin [Mass/Vol] 0.3 mg/dL Normal 0.2-1.0 [facility] Comment on above: Performed By: #### C MP ####[facility] Njqgqneaei2836 [place] [phone]. Farhat Leal Calcium [Mass/Vol] 8.2 mg/dL Critically low 8.5-10.1 [facility] Comment on above: Performed By: #### C MP ####[facility] Lobvpfefja8[address] [place], [place] [address]Dr. Farhat Leal Chloride [Moles/Vol] 106 mmol/L Normal 98-107 [facility] Comment on above: Performed By: #### C MP ####[facility] Qfoncwvgkz9856 [place] [phone]. Farhat Leal CO2 [Moles/Vol] 27.0 mmol/L Normal 21.0-32.0 [facility] Comment on above: Performed By: #### C MP ####[facility] Anpyrqhllu9642 [place] [phone]. Farhat Leal Creatinine [Mass/Vol] 1.51 mg/dL Critically high 0.70-1.30 [facility] Comment on above: Performed By: #### C MP ####[facility] Qqugcambni3084 [place], [place] [address]Qj. Farhat Leal EGFR-AF BURUNDIAN 55 mL/min/1.73m2 Critically low >=60 [facility] Comment on above: Performed By: #### C MP ####[facility] Xkskvhmkxg0727 [place] [phone]. Farhat Leal EGFR-NON AF BURUNDIAN 45 mL/min/1.73m2 Critically low >=60 [facility] Comment on above: Performed By: #### C MP ####[facility] Qjuicygxvx0158 [place] [phone]. Farhat Leal Globulin (S) [Mass/Vol] 3.2 g/dL Normal [facility] Comment on above: Performed By: #### C MP ####[facility] Mwlmdeqbdz5202 [place] [phone]. Farhat Leal Glucose [Mass/Vol] 165 mg/dL Critically high 74-106 [facility] Comment on above: Performed By: #### C MP ####[facility] Fnuzinkeop9607 [place] [phone]. Farhat Leal Potassium [Moles/Vol] 4.1 mmol/L Normal 3.5-5.1 [facility] Comment on above: Performed By: #### C MP ####[facility] Xicgjjexib9320 [place] [phone]. Farhat Leal Protein [Mass/Vol] 5.7 g/dL Critically low 6.4-8.2 [facility] Comment on above: Performed By: #### C MP ####[facility] Qqanejhotj9136 [place] [phone]. Farhat Leal Sodium [Moles/Vol] 138 mmol/L Normal 136-145 [facility] Comment on above: Performed By: #### C MP ####[facility] Trnblsypud2345 [place] [phone]. Farhat Leal Urea nitrogen [Mass/Vol] 51.0 mg/dL Critically high 7.0-18.0 [facility] Comment on above: Performed By: #### C MP ####[facility] Ezzmqgyyxg7[address] [place], [place] [address]Dr. Farhat Leal Urea nitrogen/Creatinine [Mass ratio] 33.8 mg/mg Normal [facility] Comment on above: Performed By: #### C MP ####[facility] Txiilybkko04[address] [place], [place] [address]DrSkylar Leal FK506 (TACROLIMUS) WHOLE BLO ODon 06-15-2022 Tacrolimus (FK506), Blood 16.4 ng/mL Normal 2.0-20.0 [facility] Comment on above: Result Comment: Trou gh (immediately following transplant) 15.0 . Trough (steady state, 2 weeks or more after transplant): 3.0 - 8.0 . Performed by LC-MS/MS technology. Performed By: #### F K506T ####[facility] Kcjhfkjots33[address] [place], [place] [address]DrSkylar Leal PROTIMEon 06-15-2022 INR Coag (PPP) [Relative time] 1.64 {INR} Normal [facility] Comment on above: Performed By: #### P T ####[facility] Zczpmfbsow50[address] [place], [place] [address]DrSkylar Leal INR GUIDELINES SEE BELOW Normal [facility] Comment on above: Result Comment: MALINA RED INR: 2.0 - 3.0 CONDITIONS NOT LISTED BELOW 2.5 - 3.5 FOR PROSTHETIC HEART VALVE REPLACEMENT 2.5 - 3.5 RECURRENT THROMBOSIS Performed By: #### P T ####[facility] Osccjejrdr5[address] [place], [place] [address]DrSkylar Leal PT Coag (PPP) [Time] 16.9 s Critically high 9.0-11.6 [facility] Comment on above: Performed By: #### P T ####[facility] Jstnnzacwi693[address] [place], [place] [address]DrSkylar Leal CBC AUTO DIFFon 06-12-2022 BASO # 0.0 103/ul Normal 0.0-0.1 [facility] Comment on above: Performed By: #### C BC ####[facility] Szzhxkfabd217[address] [place], [place] [address]DrSkylar Leal Basophils/100 WBC (Bld) 0.4 % Normal 0.2-2.0 [facility] Comment on above: Performed By: #### C BC ####[facility] Xganourwsn40[address] [place], [place] [address]Dr. Farhat Leal EO # 0.4 103/ul Normal 0.0-0.7 [facility] Comment on above: Performed By: #### C BC ####[facility] Kgsggptzto4376[address] [place], [place] [address]Dr. Farhat Leal Eosinophils/100 WBC (Bld) 5.4 % Normal 0.9-7.0 [facility] Comment on above: Performed By: #### C BC ####[facility] Uwtwnwybzw8027[address] [place], [place] [address]Dr. Farhat Leal Erythrocyte distribution width (RBC) [Ratio] 14.7 % Normal 11.0-15.0 [facility] Comment on above: Performed By: #### C BC ####[facility] Ekswubyudo8867[address] [place], [place] [address]Dr. Farhat Leal Hematocrit (Bld) [Volume fraction] 34.8 % Critically low 42.0-54.0 [facility] Comment on above: Performed By: #### C BC ####[facility] Rwtrlsxbtw9363[address] [place], [place] [address]Dr. Farhat Leal Hemoglobin (Bld) [Mass/Vol] 11.7 g/dL Critically low 14.0-18.0 [facility] Comment on above: Performed By: #### C BC ####[facility] Lorfxsvcpw355[address] [place], [place] [address]Dr. Farhat Leal IG # 0.02 10e3/ul Normal 0.00-0.03 [facility] Comment on above: Performed By: #### C BC ####[facility] Algwdwqrza7476[address] [place], [place] [address]Dr. Farhat Leal IG % 0.3 % Normal 0.0-0.5 [facility] Comment on above: Performed By: #### C BC ####[facility] Uvbqpmcvwf[address] [place] [address]Nw. Farhat Elvis LYMPH # 2.5 103/ul Normal 1.2-3.8 [facility] Comment on above: Performed By: #### C BC ####[facility] Rwlxzebqqe7020 [place] [phone]. Madelynlorri Leal Lymphocytes/100 WBC (Bld) 36.8 % Normal 20.5-60.0 [facility] Comment on above: Performed By: #### C BC ####[facility] Jrqlrgdlyc9921 [place] [address]Dr. Madelynlorri Leal MANUAL DIFF REQ NO Normal [facility] Comment on above: Performed By: #### C BC ####[facility] Uvbdrsjvwy1797 [place] [address]Dr. Farhat Elvis MCH (RBC) [Entitic mass] 30.9 pg Normal 25.9-34.0 [facility] Comment on above: Performed By: #### C BC ####[facility] Ddtlqeempc[address] [place], [place] [address]Dr. Farhat Elvis MCHC (RBC) [Mass/Vol] 33.6 g/dL Normal 29.9-35.2 [facility] Comment on above: Performed By: #### C BC ####[facility] Fyynbtgtzf18[address] [place], [place] [address]Dr. Farhat Leal MCV (RBC) [Entitic vol] 91.8 fL Normal 80.0-94.0 [facility] Comment on above: Performed By: #### C BC ####[facility] Trshkiddfl3274 [place] [address]Dr. Farhat Leal MONO # 0.8 103/ul Normal 0.3-0.8 [facility] Comment on above: Performed By: #### C BC ####[facility] Iwpzrcgmjd0854[address] [place], [place] [address]Dr. Farhat Leal Monocytes/100 WBC (Bld) 11.9 % Normal 1.7-12.0 [facility] Comment on above: Performed By: #### C BC ####[facility] Yfihzwbeoz[address] [place], [place] [address]Dr. Farhat Leal NEUT # 3.1 103/ul Normal 1.4-6.5 [facility] Comment on above: Performed By: #### C BC ####[facility] Ysqscbxokz5063 [place] [address]Dr. Farhat Leal Neutrophils/100 WBC (Bld) 45.2 % Normal 43.0-75.0 [facility] Comment on above: Performed By: #### C BC ####[facility] Numignflju1523 [place] [address]Dr. Farhat Leal Platelet mean volume (Bld) [Entitic vol] 10.5 fL Normal 9.5-13.5 [facility] Comment on above: Performed By: #### C BC ####[facility] Ixecxfnlad8157 [place] [address]Dr. Farhat Leal PLT 175 103/ul Normal 150-450 [facility] Comment on above: Performed By: #### C BC ####[facility] Jdjndgydfs083[address] [place], [place] [address]Dr. Farhat Leal RBC 3.79 106/ul Critically low 4.70-6.10 [facility] Comment on above: Performed By: #### C BC ####[facility] Exnzisdmtq8995 [place] [address]Dr. Farhat Leal WBC 6.8 103/ul Normal 4.0-11.0 [facility] Comment on above: Performed By: #### C BC ####[facility] Nlqvoupuzd8013 [place] [address]Dr. Farhat Leal MAGNESIUMon 06-12-2022 Magnesium [Mass/Vol] 1.6 mg/dL Critically low 1.8-2.4 [facility] Comment on above: Performed By: #### C MP, MG, PHOS ####[facility] Raqjkbdixo8239 [place] [address]Dr. Farhat Leal PHOSPHORUSon 06-12-2022 Phosphate [Mass/Vol] 3.8 mg/dL Normal 2.6-4.7 [facility] Comment on above: Performed By: #### C MP, MG, PHOS ####[facility] Grsgqpyyyo9604 [place] [address]Dr. Farhat Leal PROF 14(COMP METB)on 023 Albumin [Mass/Vol] 2.6 g/dL Critically low 3.4-5.0 [facility] Comment on above: Performed By: #### C MP, MG, PHOS ####[facility] Dxswgwbaop0603 [place] [address]Dr. Farhat Leal Albumin/Globulin [Mass ratio] 0.8 {ratio} Normal [facility] Comment on above: Performed By: #### C MP, MG, PHOS ####[facility] Kqirwoutaj5[address] [place], [place] [address]Dr. Farhat Leal ALP [Catalytic activity/Vol] 64 U/L Normal 46-116 [facility] Comment on above: Performed By: #### C MP, MG, PHOS ####[facility] Bneiusxvki253[address] [place], [place] [address]Dr. Farhat Leal ALT [Catalytic activity/Vol] 18 U/L Normal 16-63 [facility] Comment on above: Performed By: #### C MP, MG, PHOS ####[facility] Rjhskhhviv[address] [place], [place] [address]Dr. Farhat Leal Anion gap [Moles/Vol] 12.9 mmol/L Normal [facility] Comment on above: Performed By: #### C MP, MG, PHOS ####[facility] Fhaxjxvbtt6524[address] [place], [place] [address]Dr. Farhat Leal AST [Catalytic activity/Vol] 18 U/L Normal 15-37 [facility] Comment on above: Performed By: #### C MP, MG, PHOS ####[facility] Qfulvbptvv897[address] [place], [place] [address]Dr. Farhat Leal Bilirubin [Mass/Vol] 0.4 mg/dL Normal 0.2-1.0 [facility] Comment on above: Performed By: #### C MP, MG, PHOS ####[facility] Hwrdjayrqr4032[address] [place], [place] [address]Dr. Farhat Leal Calcium [Mass/Vol] 8.7 mg/dL Normal 8.5-10.1 [facility] Comment on above: Performed By: #### C MP, MG, PHOS ####[facility] Hfpumzzkck9280 [place] [address]Dr. Farhat Leal Chloride [Moles/Vol] 105 mmol/L Normal 98-107 [facility] Comment on above: Performed By: #### C MP, MG, PHOS ####[facility] Doxklmflcg9435 [place] [address]Dr. Farhat Leal CO2 [Moles/Vol] 27.9 mmol/L Normal 21.0-32.0 [facility] Comment on above: Performed By: #### C MP, MG, PHOS ####[facility] Mzsxsrknnr5[address] [place], [place] [address]Dr. Farhat Leal Creatinine [Mass/Vol] 1.53 mg/dL Critically high 0.70-1.30 [facility] Comment on above: Performed By: #### C MP, MG, PHOS ####[facility] Votyrimyvm7[address] [place], [place] [address]Dr. Farhat Leal EGFR-AF BURUNDIAN 54 mL/min/1.73m2 Critically low >=60 [facility] Comment on above: Performed By: #### C MP, MG, PHOS ####[facility] Hrslgdikbb33[address] [place], [place] [address]Dr. Farhat Leal EGFR-NON AF BURUNDIAN 44 mL/min/1.73m2 Critically low >=60 [facility] Comment on above: Performed By: #### C MP, MG, PHOS ####[facility] Lqbnbgwien6102 [place] [address]Dr. Farhat Leal Globulin (S) [Mass/Vol] 3.4 g/dL Normal [facility] Comment on above: Performed By: #### C MP, MG, PHOS ####[facility] Blmoasyeis1635 [place] [address]Dr. Farhat Leal Glucose [Mass/Vol] 179 mg/dL Critically high 74-106 [facility] Comment on above: Performed By: #### C MP, MG, PHOS ####[facility] Nrxslwzvba9550 [place] [address]Dr. Farhat Leal Potassium [Moles/Vol] 3.8 mmol/L Normal 3.5-5.1 [facility] Comment on above: Performed By: #### C MP, MG, PHOS ####[facility] Wxbaozmdgv4629 [place] [address]Dr. Farhat Leal Protein [Mass/Vol] 6.0 g/dL Critically low 6.4-8.2 [facility] Comment on above: Performed By: #### C MP, MG, PHOS ####[facility] Cqkvpngpkf4720[address] [place], [place] [address]Dr. Farhat Leal Sodium [Moles/Vol] 142 mmol/L Normal 136-145 [facility] Comment on above: Performed By: #### C MP, MG, PHOS ####[facility] Clzggvxiqa[address] [place], [place] [address]Dr. Farhat Leal Urea nitrogen [Mass/Vol] 56.0 mg/dL Critically high 7.0-18.0 [facility] Comment on above: Performed By: #### C MP, MG, PHOS ####[facility] Bodnymtrow[address] [place], [place] [address]Dr. Farhat Leal Urea nitrogen/Creatinine [Mass ratio] 36.6 mg/mg Normal [facility] Comment on above: Performed By: #### C MP, MG, PHOS ####[facility] Ksjtseukdg[address] [place], [place] [address]Dr. Farhat Leal FK506 (TACROLIMUS) WHOLE BLO ODon 06-08-2022 Tacrolimus (FK506), Blood 13.2 ng/mL Normal 2.0-20.0 [facility] Comment on above: Result Comment: Trou gh (immediately following transplant) 15.0 . Trough (steady state, 2 weeks or more after transplant): 3.0 - 8.0 . Performed by LC-MS/MS technology. Performed By: #### F K506T ####[facility] Sjmcupbcac[address] [place], [place] [address]Dr. Farhat Leal CBC AUTO DIFFon 06-05-2022 BASO # 0.1 103/ul Normal 0.0-0.1 [facility] Comment on above: Performed By: #### C BC ####[facility] Kgkspkcyed6185 [place] [address]Dr. Farhat Leal Basophils/100 WBC (Bld) 0.8 % Normal 0.2-2.0 [facility] Comment on above: Performed By: #### C BC ####[facility] Lomtqppgxk7526 [place] [address]Dr. Farhat Leal EO # 0.3 103/ul Normal 0.0-0.7 [facility] Comment on above: Performed By: #### C BC ####[facility] Phslzizeet0306 [place] [address]Dr. Farhat Leal Eosinophils/100 WBC (Bld) 4.7 % Normal 0.9-7.0 [facility] Comment on above: Performed By: #### C BC ####[facility] Nynsopuwlh4641 [place] [address]Dr. Farhat Leal Erythrocyte distribution width (RBC) [Ratio] 15.1 % Critically high 11.0-15.0 [facility] Comment on above: Performed By: #### C BC ####[facility] Jqejxdipmu9423 [place] [address]Dr. Farhat Leal Hematocrit (Bld) [Volume fraction] 35.5 % Critically low 42.0-54.0 [facility] Comment on above: Performed By: #### C BC ####[facility] Exoymvdcdr5243 [place] [address]Dr. Farhat Leal Hemoglobin (Bld) [Mass/Vol] 11.7 g/dL Critically low 14.0-18.0 [facility] Comment on above: Performed By: #### C BC ####[facility] Vfvvrmphcy9722 [place] [address]Dr. Farhat Elvis IG # 0.01 10e3/ul Normal 0.00-0.03 [facility] Comment on above: Performed By: #### C BC ####[facility] Xclfcellyv3723 [place] [id number]. Farhat Leal IG % 0.2 % Normal 0.0-0.5 [facility] Comment on above: Performed By: #### C BC ####[facility] Lyaqypunnp9654 [place] [id number]. Farhat Leal LYMPH # 2.1 103/ul Normal 1.2-3.8 [facility] Comment on above: Performed By: #### C BC ####[facility] Sbvwsmfnez5125 [place] [phone]. Farhat Elvis Lymphocytes/100 WBC (Bld) 34.5 % Normal 20.5-60.0 [facility] Comment on above: Performed By: #### C BC ####[facility] Krnnnxbgvq7748 [place] [phone]. Farhat Elvis MANUAL DIFF REQ NO Normal [facility] Comment on above: Performed By: #### C BC ####[facility] Zgkgzkzfsh1161 [place] [phone]. Farhat Leal MCH (RBC) [Entitic mass] 30.6 pg Normal 25.9-34.0 [facility] Comment on above: Performed By: #### C BC ####[facility] Qpvhojkcan2932 [place] [phone]. Farhat Leal MCHC (RBC) [Mass/Vol] 33.0 g/dL Normal 29.9-35.2 [facility] Comment on above: Performed By: #### C BC ####[facility] Kzdsdbpfzr9688 [place] [phone]. Farhat Leal MCV (RBC) [Entitic vol] 92.9 fL Normal 80.0-94.0 [facility] Comment on above: Performed By: #### C BC ####[facility] Ppccdmwopc0775 [place] [phone]. Farhat Elvis MONO # 0.7 103/ul Normal 0.3-0.8 [facility] Comment on above: Performed By: #### C BC ####[facility] Uhfsxegibe8059 [place] [phone]. Farhat Leal Monocytes/100 WBC (Bld) 11.4 % Normal 1.7-12.0 [facility] Comment on above: Performed By: #### C BC ####[facility] Kgxaxiqzfv9306 [place] [phone]. Farhat Leal NEUT # 2.9 103/ul Normal 1.4-6.5 [facility] Comment on above: Performed By: #### C BC ####[facility] Wvrxjezmwl7844 [place] [phone]. Farhat Leal Neutrophils/100 WBC (Bld) 48.4 % Normal 43.0-75.0 [facility] Comment on above: Performed By: #### C BC ####[facility] Btelxgfumk6853 [place] [phone]. Farhat Leal Platelet mean volume (Bld) [Entitic vol] 10.7 fL Normal 9.5-13.5 [facility] Comment on above: Performed By: #### C BC ####[facility] Vxctxevtls3963 [place] [phone]. Farhat Leal PLT 185 103/ul Normal 150-450 [facility] Comment on above: Performed By: #### C BC ####[facility] Ninlctbfws8073 [place] [phone]. Farhat Leal RBC 3.82 106/ul Critically low 4.70-6.10 [facility] Comment on above: Performed By: #### C BC ####[facility] Acjealjzul8331 [place] [phone]. Farhat Leal WBC 6.0 103/ul Normal 4.0-11.0 [facility] Comment on above: Performed By: #### C BC ####[facility] Owntjxngtk6254 [place] [phone]. Farhat Leal MAGNESIUMon 06-05-2022 Magnesium [Mass/Vol] 1.9 mg/dL Normal 1.8-2.4 [facility] Comment on above: Performed By: #### P HOS, MG ####[facility] Avvwjclfcq0962 [place] [phone]. Madelynlorri Leal PHOSPHORUSon 06-05-2022 Phosphate [Mass/Vol] 4.4 mg/dL Normal 2.6-4.7 [facility] Comment on above: Performed By: #### P HOS, MG ####[facility] Yapcqnwgjk4996 [place] [address]Dr. Farhat Leal PROTIMEon 06-05-2022 INR Coag (PPP) [Relative time] 2.16 {INR} Normal [facility] Comment on above: Performed By: #### P T ####[facility] Butfewhlgr4866 [place] [address]Dr. Farhat Leal INR GUIDELINES SEE BELOW Normal [facility] Comment on above: Result Comment: MALINA RED INR: 2.0 - 3.0 CONDITIONS NOT LISTED BELOW 2.5 - 3.5 FOR PROSTHETIC HEART VALVE REPLACEMENT 2.5 - 3.5 RECURRENT THROMBOSIS Performed By: #### P T ####[facility] Tdufjlplxi46[address] [place], [place] [address]Dr. Farhat Leal PT Coag (PPP) [Time] 21.9 s Critically high 9.0-11.6 [facility] Comment on above: Performed By: #### P T ####[facility] Zwjegrmplq445[address] [place], [place] [address]Dr. Farhat Leal FK506 (TACROLIMUS) WHOLE BLO ODon 06-01-2022 Tacrolimus (FK506), Blood 26.4 ng/mL Invalid Interpretation Code 2.0-20.0 [facility] Comment on above: Result Comment: Trou gh (immediately following transplant) 15.0 . Trough (steady state, 2 weeks or more after transplant): 3.0 - 8.0 . Performed by LC-MS/MS technology.Patient drug level exceeds published reference range. Evaluateclinically for signs of potential toxicity. Performed By: #### F K506T ####[facility] Mfhmdmlawn0789 [place] [address]DrSkylar Leal CBC AUTO DIFFon 05-29-2022 BASO # 0.0 103/ul Normal 0.0-0.1 [facility] Comment on above: Performed By: #### C BC ####[facility] Uvstgcswkf8914 [place] [phone]. Farhat Leal Basophils/100 WBC (Bld) 0.6 % Normal 0.2-2.0 [facility] Comment on above: Performed By: #### C BC ####[facility] Ddszhkpyth74[address] [place], [place] [address]Dr. Farhat Leal EO # 0.3 103/ul Normal 0.0-0.7 [facility] Comment on above: Performed By: #### C BC ####[facility] Kalfmqgopr29[address] [place], [place] [address]Dr. Farhat Leal Eosinophils/100 WBC (Bld) 4.7 % Normal 0.9-7.0 [facility] Comment on above: Performed By: #### C BC ####[facility] Mtiexzsvlj6898[address] [place], [place] [address]Dr. Farhat Leal Erythrocyte distribution width (RBC) [Ratio] 15.3 % Critically high 11.0-15.0 [facility] Comment on above: Performed By: #### C BC ####[facility] Eirzyerjbf29[address] [place], [place] [address]Dr. Farhat Leal Hematocrit (Bld) [Volume fraction] 36.6 % Critically low 42.0-54.0 [facility] Comment on above: Performed By: #### C BC ####[facility] Pzfixcrfoc143[address] [place], [place] [address]Dr. Farhat Leal Hemoglobin (Bld) [Mass/Vol] 12.3 g/dL Critically low 14.0-18.0 [facility] Comment on above: Performed By: #### C BC ####[facility] Ppekzlazjx7[address] [place], [place] [address]Dr. Farhat Leal IG # 0.02 10e3/ul Normal 0.00-0.03 [facility] Comment on above: Performed By: #### C BC ####[facility] Akbnptbmbd209[address] [place], [place] [address]Dr. Farhat Leal IG % 0.3 % Normal 0.0-0.5 [facility] Comment on above: Performed By: #### C BC ####[facility] Qzoxafsofn1821 [place] [phone]. Farhat Elvis LYMPH # 2.8 103/ul Normal 1.2-3.8 [facility] Comment on above: Performed By: #### C BC ####[facility] Lgxwjbqxff5953 [place] [phone]. Farhat Leal Lymphocytes/100 WBC (Bld) 44.4 % Normal 20.5-60.0 [facility] Comment on above: Performed By: #### C BC ####[facility] Iszldjvncr0732 [place] [address]Dr. Farhat Leal MANUAL DIFF REQ NO Normal [facility] Comment on above: Performed By: #### C BC ####[facility] Jxljlqgcuu0660 [place] [phone]. Farhat Leal MCH (RBC) [Entitic mass] 30.4 pg Normal 25.9-34.0 [facility] Comment on above: Performed By: #### C BC ####[facility] Xbzdwojkfd9225 [place] [phone]. Madelynlorri Leal MCHC (RBC) [Mass/Vol] 33.6 g/dL Normal 29.9-35.2 [facility] Comment on above: Performed By: #### C BC ####[facility] Vgjmfydugn4638 [place] [phone]. Farhat Leal MCV (RBC) [Entitic vol] 90.4 fL Normal 80.0-94.0 [facility] Comment on above: Performed By: #### C BC ####[facility] Hqzhywvdhs7422 [place] [phone]. Farhat Leal MONO # 0.7 103/ul Normal 0.3-0.8 [facility] Comment on above: Performed By: #### C BC ####[facility] Ivgtonexlc4401 [place] [phone]. Farhat Leal Monocytes/100 WBC (Bld) 10.7 % Normal 1.7-12.0 [facility] Comment on above: Performed By: #### C BC ####[facility] Tubuqyxafr6780 [place] [phone]. Farhat Leal NEUT # 2.5 103/ul Normal 1.4-6.5 [facility] Comment on above: Performed By: #### C BC ####[facility] Jthhkhogbr7088 [place] [phone]. Farhat Leal Neutrophils/100 WBC (Bld) 39.3 % Critically low 43.0-75.0 [facility] Comment on above: Performed By: #### C BC ####[facility] Tstfbppako8382 [place] [phone]. Faraht Leal Platelet mean volume (Bld) [Entitic vol] 10.5 fL Normal 9.5-13.5 [facility] Comment on above: Performed By: #### C BC ####[facility] Cwhfmcefws2468 [place] [phone]. Farhat Leal PLT 190 103/ul Normal 150-450 [facility] Comment on above: Performed By: #### C BC ####[facility] Elhqtkigdg0676 [place] [phone]. Farhat Leal RBC 4.05 106/ul Critically low 4.70-6.10 [facility] Comment on above: Performed By: #### C BC ####[facility] Qlthvvftia6613 [place] [phone]. Farhat Leal WBC 6.4 103/ul Normal 4.0-11.0 [facility] Comment on above: Performed By: #### C BC ####[facility] Cczwhmcopb4628 [place] [phone] Leal PROF 14(COMP METB)on 023 Albumin [Mass/Vol] 2.5 g/dL Critically low 3.4-5.0 [facility] Comment on above: Performed By: #### C MP ####[facility] Fpijetmhfy4917 [place] [id number] Leal Albumin/Globulin [Mass ratio] 0.8 {ratio} Normal [facility] Comment on above: Performed By: #### C MP ####[facility] Kpkvmaiprd4574 [place] [address]Dr. Farhat Leal ALP [Catalytic activity/Vol] 61 U/L Normal 46-116 [facility] Comment on above: Performed By: #### C MP ####[facility] Hkdnndnjza0124 [place] [address]Dr. Farhat Elvis ALT [Catalytic activity/Vol] 16 U/L Normal 16-63 [facility] Comment on above: Performed By: #### C MP ####[facility] Jirfenkgwa1960 [place] [address]Dr. Farhat Elvis Anion gap [Moles/Vol] 12.3 mmol/L Normal [facility] Comment on above: Performed By: #### C MP ####[facility] Zyjqpudgha40[address] [place], [place] [address]Dr. Farhat Elvis AST [Catalytic activity/Vol] 18 U/L Normal 15-37 [facility] Comment on above: Performed By: #### C MP ####[facility] Ldkowjzqml0[address] [place], [place] [address]Dr. Farhat Elvis Bilirubin [Mass/Vol] 0.5 mg/dL Normal 0.2-1.0 [facility] Comment on above: Performed By: #### C MP ####[facility] Aesdpuybvl750[address] [place], [place] [address]Dr. Farhat Elvis Calcium [Mass/Vol] 8.6 mg/dL Normal 8.5-10.1 [facility] Comment on above: Performed By: #### C MP ####[facility] Srfcyiardu2761 [place] [address]Dr. Farhat Leal Chloride [Moles/Vol] 105 mmol/L Normal 98-107 [facility] Comment on above: Performed By: #### C MP ####[facility] Fwgeqiczvl1600 [place] [address]Dr. Farhat Leal CO2 [Moles/Vol] 28.6 mmol/L Normal 21.0-32.0 [facility] Comment on above: Performed By: #### C MP ####[facility] Mexgllljln1139 [place] [phone]. Farhat Leal Creatinine [Mass/Vol] 1.47 mg/dL Critically high 0.70-1.30 [facility] Comment on above: Performed By: #### C MP ####[facility] Txqozmwmul2457 [place] [phone]. Farhat Leal EGFR-AF BURUNDIAN 56 mL/min/1.73m2 Critically low >=60 [facility] Comment on above: Performed By: #### C MP ####[facility] Idutjbupxr3124 [place] [phone]. Farhat Elvis EGFR-NON AF BURUNDIAN 46 mL/min/1.73m2 Critically low >=60 [facility] Comment on above: Performed By: #### C MP ####[facility] Brjxpimhex7490 [place] [address]Dr. Farhat Elvis Globulin (S) [Mass/Vol] 3.3 g/dL Normal [facility] Comment on above: Performed By: #### C MP ####[facility] Wnebnlumdp0092 [place] [address]Dr. Farhat Leal Glucose [Mass/Vol] 164 mg/dL Critically high 74-106 [facility] Comment on above: Performed By: #### C MP ####[facility] Cshlqfhtja5174 [place] [address]Dr. Farhat Elvis Potassium [Moles/Vol] 3.9 mmol/L Normal 3.5-5.1 [facility] Comment on above: Performed By: #### C MP ####[facility] Wytnqlqxaj0438 [place] [address]Dr. Farhat Leal Protein [Mass/Vol] 5.8 g/dL Critically low 6.4-8.2 [facility] Comment on above: Performed By: #### C MP ####[facility] Shdemiwiso4989 [place] [address]Dr. Farhat Elvis Sodium [Moles/Vol] 142 mmol/L Normal 136-145 [facility] Comment on above: Performed By: #### C MP ####[facility] Zwbmgwxbap1027 [place] [address]Dr. Farhat Leal Urea nitrogen [Mass/Vol] 53.0 mg/dL Critically high 7.0-18.0 [facility] Comment on above: Performed By: #### C MP ####[facility] Dyqsdfjeot[address] [place], [place] [address]Dr. Farhat Leal Urea nitrogen/Creatinine [Mass ratio] 36.1 mg/mg Normal [facility] Comment on above: Performed By: #### C MP ####[facility] Phgvwratba3030[address] [place], [place] [address]Dr. Farhat Leal PROTIMEon 05-29-2022 INR Coag (PPP) [Relative time] 2.41 {INR} Normal [facility] Comment on above: Performed By: #### P T ####[facility] Spvhzxoumu4858[address] [place], [place] [address]Dr. Farhat Leal INR GUIDELINES SEE BELOW Normal [facility] Comment on above: Result Comment: MALINA RED INR: 2.0 - 3.0 CONDITIONS NOT LISTED BELOW 2.5 - 3.5 FOR PROSTHETIC HEART VALVE REPLACEMENT 2.5 - 3.5 RECURRENT THROMBOSIS Performed By: #### P T ####[facility] Iwusbazaev1405[address] [place], [place] [address]Dr. Farhat Leal PT Coag (PPP) [Time] 24.3 s Critically high 9.0-11.6 [facility] Comment on above: Performed By: #### P T ####[facility] Ptyxoieawv5613[address] [place], [place] [address]Dr. Farhat Leal FK506 (TACROLIMUS) WHOLE BLO ODon 05-25-2022 Tacrolimus (FK506), Blood 5.1 ng/mL Normal 2.0-20.0 [facility] Comment on above: Result Comment: Trou gh (immediately following transplant) 15.0 . Trough (steady state, 2 weeks or more after transplant): 3.0 - 8.0 . Performed by LC-MS/MS technology. Performed By: #### F K506T ####[facility] Gnnhvyinjw2187 [place] [address]Dr. Farhat Leal CBC AUTO DIFFon 05-22-2022 BASO # 0.0 103/ul Normal 0.0-0.1 [facility] Comment on above: Performed By: #### C BC ####[facility] Iyujivxzel35[address] [place], [place] [address]Dr. Farhat Leal Basophils/100 WBC (Bld) 0.5 % Normal 0.2-2.0 [facility] Comment on above: Performed By: #### C BC ####[facility] Dsgwrjgcsi044[address] [place], [place] [address]Dr. Farhat Leal EO # 0.2 103/ul Normal 0.0-0.7 [facility] Comment on above: Performed By: #### C BC ####[facility] Kpidzyoppp4338[address] [place], [place] [address]Dr. Madelynlorri Leal Eosinophils/100 WBC (Bld) 4.0 % Normal 0.9-7.0 [facility] Comment on above: Performed By: #### C BC ####[facility] Jblkncduae1800[address] [place], [place] [address]Dr. Farhat Leal Erythrocyte distribution width (RBC) [Ratio] 15.5 % Critically high 11.0-15.0 [facility] Comment on above: Performed By: #### C BC ####[facility] Dwcdkwzxeg4644[address] [place], [place] [address]Dr. Farhat Leal Hematocrit (Bld) [Volume fraction] 34.1 % Critically low 42.0-54.0 [facility] Comment on above: Performed By: #### C BC ####[facility] Slolkczoeq762[address] [place], [place] [address]Dr. Farhat Leal Hemoglobin (Bld) [Mass/Vol] 11.3 g/dL Critically low 14.0-18.0 [facility] Comment on above: Performed By: #### C BC ####[facility] Yjvrhwjrws0[address] [place], [place] [address]Dr. Farhat Leal IG # 0.03 10e3/ul Normal 0.00-0.03 [facility] Comment on above: Performed By: #### C BC ####[facility] Cyrjimbsld9114 [place] [id number]. Farhat Leal IG % 0.5 % Normal 0.0-0.5 [facility] Comment on above: Performed By: #### C BC ####[facility] Opgcpxccjq6012 [place] [phone]. Farhat Leal LYMPH # 2.1 103/ul Normal 1.2-3.8 [facility] Comment on above: Performed By: #### C BC ####[facility] Izabrvpvth4512 [place] [phone]. Farhat Elvis Lymphocytes/100 WBC (Bld) 34.6 % Normal 20.5-60.0 [facility] Comment on above: Performed By: #### C BC ####[facility] Rjvuibhbhc5485 [place] [phone]. Farhat Leal MANUAL DIFF REQ NO Normal [facility] Comment on above: Performed By: #### C BC ####[facility] Chyjpezhde7462 [place] [phone]. Farhat Leal MCH (RBC) [Entitic mass] 30.3 pg Normal 25.9-34.0 [facility] Comment on above: Performed By: #### C BC ####[facility] Aenbahmjnp4979 [place] [phone]. Farhat Leal MCHC (RBC) [Mass/Vol] 33.1 g/dL Normal 29.9-35.2 [facility] Comment on above: Performed By: #### C BC ####[facility] Iswcnoxqoo[address] [place], [place] [address]Dr. Farhat Leal MCV (RBC) [Entitic vol] 91.4 fL Normal 80.0-94.0 [facility] Comment on above: Performed By: #### C BC ####[facility] Pywrffmjqs2834 [place] [phone]. Farhat Elvis MONO # 0.7 103/ul Normal 0.3-0.8 [facility] Comment on above: Performed By: #### C BC ####[facility] Nuetkfveil3745 [place] [phone]. Farhat Leal Monocytes/100 WBC (Bld) 11.6 % Normal 1.7-12.0 [facility] Comment on above: Performed By: #### C BC ####[facility] Ohxsxoqygr1498 [place] [phone]. Farhat Leal NEUT # 2.9 103/ul Normal 1.4-6.5 [facility] Comment on above: Performed By: #### C BC ####[facility] Koxsnorccr1096 [place] [phone]. Farhat Leal Neutrophils/100 WBC (Bld) 48.8 % Normal 43.0-75.0 [facility] Comment on above: Performed By: #### C BC ####[facility] Heleggyarj8882 [place] [phone]. Farhat Leal Platelet mean volume (Bld) [Entitic vol] 10.9 fL Normal 9.5-13.5 [facility] Comment on above: Performed By: #### C BC ####[facility] Bncaievfmz0514 [place] [phone]. Farhat Leal PLT 186 103/ul Normal 150-450 [facility] Comment on above: Performed By: #### C BC ####[facility] Lejbdurtck4725 [place] [address]Dr. Farhat Leal RBC 3.73 106/ul Critically low 4.70-6.10 [facility] Comment on above: Performed By: #### C BC ####[facility] Arjalbflwk9779 [place] [phone]. Farhat Leal WBC 6.0 103/ul Normal 4.0-11.0 [facility] Comment on above: Performed By: #### C BC ####[facility] Qtosuruznw6647 [place] [phone]. Farhat Leal PROF 14(COMP METB)on 023 Albumin [Mass/Vol] 2.7 g/dL Critically low 3.4-5.0 [facility] Comment on above: Performed By: #### C MP ####[facility] Lngqbsnvgm2407 [place] [phone]. Farhat Elvis Albumin/Globulin [Mass ratio] 0.8 {ratio} Normal [facility] Comment on above: Performed By: #### C MP ####[facility] Vgbqkgelpd0104 [place] [phone]. Madelynlorri Elvis ALP [Catalytic activity/Vol] 60 U/L Normal 46-116 [facility] Comment on above: Performed By: #### C MP ####[facility] Ezihfoavpz1140[address] [place], [place] [address]Dr. Farhat Elvis ALT [Catalytic activity/Vol] 17 U/L Normal 16-63 [facility] Comment on above: Performed By: #### C MP ####[facility] Imaxbpgezj4807[address] [place], [place] [address]Dr. Farhat Leal Anion gap [Moles/Vol] 9.6 mmol/L Normal [facility] Comment on above: Performed By: #### C MP ####[facility] Ajqmhtocnc556[address] [place], [place] [address]Dr. Farhat Elvis AST [Catalytic activity/Vol] 14 U/L Critically low 15-37 [facility] Comment on above: Performed By: #### C MP ####[facility] Vnwcuhjbbv4[address] [place], [place] [address]Dr. Farhat Leal Bilirubin [Mass/Vol] 0.5 mg/dL Normal 0.2-1.0 [facility] Comment on above: Performed By: #### C MP ####[facility] Tkvbhehvzv8[address] [place], [place] [address]Dr. Farhat Leal Calcium [Mass/Vol] 8.4 mg/dL Critically low 8.5-10.1 [facility] Comment on above: Performed By: #### C MP ####[facility] Lguyiezkus12[address] [place], [place] [address]Dr. Farhat Leal Chloride [Moles/Vol] 104 mmol/L Normal 98-107 [facility] Comment on above: Performed By: #### C MP ####[facility] Leervniwdz6457 [place] [address]Dr. Farhat Leal CO2 [Moles/Vol] 27.2 mmol/L Normal 21.0-32.0 [facility] Comment on above: Performed By: #### C MP ####[facility] Sedlatdxyo5485 [place] [address]Dr. Farhat Leal Creatinine [Mass/Vol] 1.24 mg/dL Normal 0.70-1.30 [facility] Comment on above: Performed By: #### C MP ####[facility] Kuwjqifnxz6763 [place] [address]Dr. Farhat Leal EGFR-AF BURUNDIAN >60 Normal >=60 [facility] Comment on above: Performed By: #### C MP ####[facility] [facility] [address] [place] [address]Dr. Farhat Elvis EGFR-NON AF BURUNDIAN 57 mL/min/1.73m2 Critically low >=60 [facility] Comment on above: Performed By: #### C MP ####[facility] Talp[address]vupu[address] [place] [address]Dr. Farhat Leal Globulin (S) [Mass/Vol] 3.3 g/dL Normal [facility] Comment on above: Performed By: #### C MP ####[facility] Bkoduvqezy[address] [place] [address] [address]Dr. Farhat Elvis Glucose [Mass/Vol] 275 mg/dL Critically high 74-106 T [facility] Comment on above: Performed By: #### C MP ####[facility] Fokfjsbewn[address] [place] [address]Dr. Farhat Elvis Potassium [Moles/Vol] 3.8 mmol/L Normal 3.5-5.1 [facility] Comment on above: Performed By: #### C MP ####[facility] Gymtbqefjh[address] [place], [place] [address]Dr. Farhat Leal Protein [Mass/Vol] 6.0 g/dL Critically low 6.4-8.2 Th [facility] Comment on above: Performed By: #### C MP ####[facility] Ypcsxrwqak[address] [place] [address]Dr. Farhat Leal Sodium [Moles/Vol] 137 mmol/L Normal 136-145 [facility] Comment on above: Performed By: #### C MP ####[facility] Zxsaicemsh[address] [place], [place] [address]Dr. Farhat Leal Urea nitrogen [Mass/Vol] 54.0 mg/dL Critically high 7.0-18.0 [facility] Comment on above: Performed By: #### C MP ####[facility] Iygpxsptvb[address] [place], [place] [address]Dr. Farhat Leal Urea nitrogen/Creatinine [Mass ratio] 43.5 mg/mg Normal [facility] Comment on above: Performed By: #### C MP ####[facility] Avgccwzckn[address] [place], [place] [address]Dr. Farhat Leal PROTIMEon 05-22-2022 INR Coag (PPP) [Relative time] 2.27 {INR} Normal [facility] Comment on above: Performed By: #### P T ####[facility] Xuvwwmmmtf[address] [place], [place] [address]Dr. Farhat Leal INR GUIDELINES SEE BELOW Normal [facility] Comment on above: Result Comment: MALINA RED INR: 2.0 - 3.0 CONDITIONS NOT LISTED BELOW 2.5 - 3.5 FOR PROSTHETIC HEART VALVE REPLACEMENT 2.5 - 3.5 RECURRENT THROMBOSIS Performed By: #### P T ####[facility] Cfyhxuxbnz9[address] [place], [place] [address]Dr. Farhat Leal PT Coag (PPP) [Time] 23.0 s Critically high 9.0-11.6 [facility] Comment on above: Performed By: #### P T ####[facility] Xniohtegee[address] [place], [place] [address]Dr. Farhat Leal FK506 (TACROLIMUS) WHOLE BLO ODon 05-19-2022 Tacrolimus (FK506), Blood 7.8 ng/mL Normal 2.0-20.0 [facility] Comment on above: Result Comment: Trou gh (immediately following transplant) 15.0 . Trough (steady state, 2 weeks or more after transplant): 3.0 - 8.0 . Performed by LC-MS/MS technology. Performed By: #### F [id number] ####[facility] Xrqpmnwcuy[address] [place] [address]Dr. Farhat Leal CBC AUTO DIFFon 05-15-2022 BASO # 0.0 103/ul Normal 0.0-0.1 [facility] Comment on above: Performed By: #### C BC ####[facility] Xdjwfyhcej[address] [place] [address]Dr. Farhat Elvis Basophils/100 WBC (Bld) 0.4 % Normal 0.2-2.0 [facility] Comment on above: Performed By: #### C BC ####[facility] Fsvrnqnhlz[address] [place], [place] [address]Dr. Farhat Leal EO # 0.2 103/ul Normal 0.0-0.7 [facility] Comment on above: Performed By: #### C BC ####[facility] Lxqxvedoad9357[address] [place], [place] [address]Dr. Farhat Elvis Eosinophils/100 WBC (Bld) 3.0 % Normal 0.9-7.0 [facility] Comment on above: Performed By: #### C BC ####[facility] Rsdrmudkyt[address] [place], [place] [address]Dr. Farhat Leal Erythrocyte distribution width (RBC) [Ratio] 15.7 % Critically high 11.0-15.0 [facility] Comment on above: Performed By: #### C BC ####[facility] Dfpvochqxm7025[address] [place], [place] [address]Dr. Farhat Leal Hematocrit (Bld) [Volume fraction] 36.8 % Critically low 42.0-54.0 [facility] Comment on above: Performed By: #### C BC ####[facility] Pkeauzrorg3462[address] [place], [place] [address]Dr. Farhat Leal Hemoglobin (Bld) [Mass/Vol] 12.4 g/dL Critically low 14.0-18.0 [facility] Comment on above: Performed By: #### C BC ####[facility] Zswbqngixs2042[address] [place], [place] [address]DrSkylar Leal IG # 0.01 10e3/ul Normal 0.00-0.03 [facility] Comment on above: Performed By: #### C BC ####[facility] Rhcqtmvrnh[address] [place] [address]DrSkylar Leal IG % 0.1 % Normal 0.0-0.5 [facility] Comment on above: Performed By: #### C BC ####[facility] Amcbfrjwzg25[address] [place] [address]DrSkylar Leal LYMPH # 2.4 103/ul Normal 1.2-3.8 [facility] Comment on above: Performed By: #### C BC ####[facility] Owjvdgkkhw1035[address] [place], [place] [address]DrSkylar Leal Lymphocytes/100 WBC (Bld) 35.6 % Normal 20.5-60.0 [facility] Comment on above: Performed By: #### C BC ####[facility] Cjnsfsmsoy[address] [place], [place] [address]DrSkylar Leal MANUAL DIFF REQ NO Normal [facility] Comment on above: Performed By: #### C BC ####[facility] Nyzvyldgwk156[address] [place], [place] [address]DrSkylar Leal MCH (RBC) [Entitic mass] 30.1 pg Normal 25.9-34.0 [facility] Comment on above: Performed By: #### C BC ####[facility] Cutqzgcidq2454[address] [place], [place] [address]DrSkylar Leal MCHC (RBC) [Mass/Vol] 33.7 g/dL Normal 29.9-35.2 [facility] Comment on above: Performed By: #### C BC ####[facility] Pxbqyxlcci[address] [place] [address]DrSkylar Leal MCV (RBC) [Entitic vol] 89.3 fL Normal 80.0-94.0 [facility] Comment on above: Performed By: #### C BC ####[facility] Eocxxsnrda99[address] [place], [place] [address]DrSkylar Leal MONO # 0.7 103/ul Normal 0.3-0.8 [facility] Comment on above: Performed By: #### C BC ####[facility] Z[address]vqryjew[address] [place] [id number] Leal Monocytes/100 WBC (Bld) 10.8 % Normal 1.7-12.0 [facility] Comment on above: Performed By: #### C BC ####[facility] Qjqimnroyy63[address] [place] [id number] Leal NEUT # 3.4 103/ul Normal 1.4-6.5 [facility] Comment on above: Performed By: #### C BC ####[facility] Jhoaipobvq[address] [place] [address]DrSkylar Farhat Leal Neutrophils/100 WBC (Bld) 50.1 % Normal 43.0-75.0 [facility] Comment on above: Performed By: #### C BC ####[facility] Mzehahdpyp[address] [place], [place] [id number] Farhat Leal Platelet mean volume (Bld) [Entitic vol] 10.2 fL Normal 9.5-13.5 [facility] Comment on above: Performed By: #### C BC ####[facility] Mxteghgoal74[address] [place], [place] [id number]. Farhat Leal PLT 190 103/ul Normal 150-450 [facility] Comment on above: Performed By: #### C BC ####[facility] Pzwfruyvws[address] [place] [id number] Farhat Leal RBC 4.12 106/ul Critically low 4.70-6.10 [facility] Comment on above: Performed By: #### C BC ####[facility] Jutqdqvlzo8[address] [place] [id number] Farhat Leal WBC 6.8 103/ul Normal 4.0-11.0 [facility] Comment on above: Performed By: #### C BC ####[facility] Dsxoijcrup03[address] [place], [place] [address]DrSkylar Farhat Elvis PROF 14(COMP METB)on 023 Albumin [Mass/Vol] 2.8 g/dL Critically low 3.4-5.0 [facility] Comment on above: Performed By: #### C MP ####[facility] Ybuszretey[address] [place] [address]Dr. Farhat Leal Albumin/Globulin [Mass ratio] 0.9 {ratio} Normal [facility] Comment on above: Performed By: #### C MP ####[facility] Pgjkdvvrmc[address] [place] [address]Dr. Farhat Leal ALP [Catalytic activity/Vol] 66 U/L Normal 46-116 [facility] Comment on above: Performed By: #### C MP ####[facility] Ikhftnhfas80[address] [place], [place] [address]Dr. Farhat Leal ALT [Catalytic activity/Vol] 15 U/L Critically low 16-63 [facility] Comment on above: Performed By: #### C MP ####[facility] Ntyslbekvp1424[address] [place], [place] [address]Dr. Farhat Leal Anion gap [Moles/Vol] 11.1 mmol/L Normal [facility] Comment on above: Performed By: #### C MP ####[facility] Mywixhfvqx7202[address] [place], [place] [address]Dr. Farhat Leal AST [Catalytic activity/Vol] 14 U/L Critically low 15-37 [facility] Comment on above: Performed By: #### C MP ####[facility] Notkvsavva8[address] [place], [place] [address]Dr. Farhat Leal Bilirubin [Mass/Vol] 0.8 mg/dL Normal 0.2-1.0 [facility] Comment on above: Performed By: #### C MP ####[facility] Hyoveqrjep24[address] [place], [place] [address]Dr. Farhat Leal Calcium [Mass/Vol] 8.9 mg/dL Normal 8.5-10.1 [facility] Comment on above: Performed By: #### C MP ####[facility] Jvkgbwfqjw[address] [place], [place] [address]Dr. Farhat Leal Chloride [Moles/Vol] 101 mmol/L Normal 98-107 [facility] Comment on above: Performed By: #### C MP ####[facility] Jdrdeqzxmf[address] [place] [address]Dr. Farhat Leal CO2 [Moles/Vol] 28.2 mmol/L Normal 21.0-32.0 [facility] Comment on above: Performed By: #### C MP ####[facility] Lstofnufzl[address] [place] [address]Dr. Farhat Elvis Creatinine [Mass/Vol] 1.23 mg/dL Normal 0.70-1.30 [facility] Comment on above: Performed By: #### C MP ####[facility] Kixotmjmya[address] [place] [address]Dr. Farhat Elvis EGFR-AF BURUNDIAN >60 Normal >=60 [facility] Comment on above: Performed By: #### C MP ####[facility] Hsgdpyhjhe[address] [place] [address]Dr. Madelynlorri Elvis EGFR-NON AF BURUNDIAN 57 mL/min/1.73m2 Critically low >=60 [facility] Comment on above: Performed By: #### C MP ####[facility] Npdqtakxge50[address] [place] [address]Dr. Farhat Elvis Globulin (S) [Mass/Vol] 3.2 g/dL Normal [facility] Comment on above: Performed By: #### C MP ####[facility] Okfrvycqnz[address] [place] [address]Dr. Farhat Leal Glucose [Mass/Vol] 333 mg/dL Critically high 74-106 [facility] Comment on above: Performed By: #### C MP ####[facility] Fetinirgxc9[address] [place] [address]Dr. Madelynlorri Leal Potassium [Moles/Vol] 4.3 mmol/L Normal 3.5-5.1 [facility] Comment on above: Performed By: #### C MP ####[facility] Dbqpojaypb9[address] [place] [address]Dr. Farhat Leal Protein [Mass/Vol] 6.0 g/dL Critically low 6.4-8.2 Th e [facility] Comment on above: Performed By: #### C MP ####[facility] Ycmebcsdbm[address] [place] [address]Dr. Farhat Leal Sodium [Moles/Vol] 136 mmol/L Normal 136-145 [facility] Comment on above: Performed By: #### C MP ####[facility] Azsdqrxtdz2902[address] [place], [place] [address]Dr. Farhat Leal Urea nitrogen [Mass/Vol] 58.0 mg/dL Critically high 7.0-18.0 [facility] Comment on above: Performed By: #### C MP ####[facility] Fxwmcgqwhd77[address] [place], [place] [address]Dr. Farhat Leal Urea nitrogen/Creatinine [Mass ratio] 47.2 mg/mg Normal [facility] Comment on above: Performed By: #### C MP ####[facility] Hymufxzgqv[address] [place], [place] [address]Dr. Farhat Leal PROTIMEon 05-13-2022 INR Coag (PPP) [Relative time] 3.51 {INR} Normal [facility] Comment on above: Performed By: #### P T ####[facility] Uapjsrsjwu6242[address] [place], [place] [address]Dr. Farhat Leal INR GUIDELINES SEE BELOW Normal [facility] Comment on above: Result Comment: MLAINA RED INR: 2.0 - 3.0 CONDITIONS NOT LISTED BELOW 2.5 - 3.5 FOR PROSTHETIC HEART VALVE REPLACEMENT 2.5 - 3.5 RECURRENT THROMBOSIS Performed By: #### P T ####[facility] Btyjepcagg7[address] [place], [place] [address]Dr. Farhat Leal PT Coag (PPP) [Time] 34.7 s Critically high 9.0-11.6 [facility] Comment on above: Performed By: #### P T ####[facility] Mxzenbataz[address] [place], [place] [address]Dr. Farhat Leal FK506 (TACROLIMUS) WHOLE BLO ODon 05-11-2022 Tacrolimus (FK506), Blood 14.4 ng/mL Normal 2.0-20.0 [facility] Comment on above: Result Comment: Trou gh (immediately following transplant) 15.0 . Trough (steady state, 2 weeks or more after transplant): 3.0 - 8.0 . Performed by LC-MS/MS technology. Performed By: #### F K506T ####[facility] Pnlwkefhlp[address] [place], [place] [address]Dr. Farhat Leal CBC AUTO DIFFon 05-08-2022 BASO # 0.0 103/ul Normal 0.0-0.1 [facility] Comment on above: Performed By: #### C BC ####[facility] Czhkwxrrct8436[address] [place], [place] [address]Dr. Farhat Leal Basophils/100 WBC (Bld) 0.5 % Normal 0.2-2.0 The [facility] Comment on above: Performed By: #### C BC ####[facility] Hftibxjtcr399[address] [place], [place] [address]Dr. Farhat Leal EO # 0.2 103/ul Normal 0.0-0.7 [facility] Comment on above: Performed By: #### C BC ####[facility] Tesnsqwfok57[address] [place], [place] [address]Dr. Farhat Leal Eosinophils/100 WBC (Bld) 2.9 % Normal 0.9-7.0 [facility] Comment on above: Performed By: #### C BC ####[facility] Bkyljxmuwt3[address] [place], [place] [address]Dr. Farhat Leal Erythrocyte distribution width (RBC) [Ratio] 16.0 % Critically high 11.0-15.0 [facility] Comment on above: Performed By: #### C BC ####[facility] Uoxcdsikau6[address] [place], [place] [address]Dr. Farhat Leal Hematocrit (Bld) [Volume fraction] 35.7 % Critically low 42.0-54.0 The [facility] Comment on above: Performed By: #### C BC ####[facility] Dlhzfvspeh98[address] [place], [place] [address]Dr. Farhat Leal Hemoglobin (Bld) [Mass/Vol] 11.9 g/dL Critically low 14.0-18.0 [facility] Comment on above: Performed By: #### C BC ####[facility] Bsiakllmij[address] [place] [address]Dr. Farhat Leal IG # 0.03 10e3/ul Normal 0.00-0.03 [facility] Comment on above: Performed By: #### C BC ####[facility] Muvyslykfs60[address] [place] [address]Dr. Farhat Leal IG % 0.5 % Normal 0.0-0.5 [facility] Comment on above: Performed By: #### C BC ####[facility] Rzubpprnek[address] [place] [address]Dr. Farhat Leal LYMPH # 2.4 103/ul Normal 1.2-3.8 [facility] Comment on above: Performed By: #### C BC ####[facility] Zmspqxjmmd4[address] [place] [address]Dr. Farhat Leal Lymphocytes/100 WBC (Bld) 37.8 % Normal 20.5-60.0 [facility] Comment on above: Performed By: #### C BC ####[facility] Rvbmxhezhn28[address] [place] [address]Dr. Farhat Leal MANUAL DIFF REQ NO Normal [facility] Comment on above: Performed By: #### C BC ####[facility] Nenpbmvlip8[address] [place] [address]Dr. aFrhat Leal MCH (RBC) [Entitic mass] 30.4 pg Normal 25.9-34.0 [facility] Comment on above: Performed By: #### C BC ####[facility] Clottrxqcx24[address] [place] [id number]. Farhat Leal MCHC (RBC) [Mass/Vol] 33.3 g/dL Normal 29.9-35.2 The [facility] Comment on above: Performed By: #### C BC ####[facility] Epraqnxvoo9[address] [place] [address]Dr. Farhat Leal MCV (RBC) [Entitic vol] 91.1 fL Normal 80.0-94.0 [facility] Comment on above: Performed By: #### C BC ####[facility] Cyttavofsh[address] [place] [id number]. Farhat Leal MONO # 0.7 103/ul Normal 0.3-0.8 [facility] Comment on above: Performed By: #### C BC ####[facility] Enkyfieqki4[address] [place] [address]Dr. Farhat Leal Monocytes/100 WBC (Bld) 11.1 % Normal 1.7-12.0 [facility] Comment on above: Performed By: #### C BC ####[facility] Tisnndyjlx87[address] [place] [id number]. Farhat Leal NEUT # 2.9 103/ul Normal 1.4-6.5 [facility] Comment on above: Performed By: #### C BC ####[facility] Idiklsltbc4[address] [place] [id number]. Farhat Leal Neutrophils/100 WBC (Bld) 47.2 % Normal 43.0-75.0 [facility] Comment on above: Performed By: #### C BC ####[facility] Ymaitatshf0754 [place] [id number]. Farhat Leal Platelet mean volume (Bld) [Entitic vol] 11.0 fL Normal 9.5-13.5 [facility] Comment on above: Performed By: #### C BC ####[facility] Bsjjgizing[address] [place] [id number]. Farhat Leal PLT 191 103/ul Normal 150-450 [facility] Comment on above: Performed By: #### C BC ####[facility] Uikmrqhzdy5351 [place] [id number]. Farhat Leal RBC 3.92 106/ul Critically low 4.70-6.10 [facility] Comment on above: Performed By: #### C BC ####[facility] Ewsvtrytfh2896 [place] [id number]. Farhat Leal WBC 6.2 103/ul Normal 4.0-11.0 [facility] Comment on above: Performed By: #### C BC ####[facility] Dihtkfdgpy[address] [place] [address]Dr. Farhat Leal MAGNESIUMon 05-08-2022 Magnesium [Mass/Vol] 1.9 mg/dL Normal 1.8-2.4 [facility] Comment on above: Performed By: #### P HOS, MG ####[facility] Eywddqjwid6[address] [place] [address]Dr. Farhat Leal PHOSPHORUSon 05-08-2022 Phosphate [Mass/Vol] 4.5 mg/dL Normal 2.6-4.7 [facility] Comment on above: Performed By: #### P HOS, MG ####[facility] Jskoknznmu37[address] [place] [address]Dr. Farhat Leal PROF 14(COMP METB)on 023 Albumin [Mass/Vol] 2.9 g/dL Critically low 3.4-5.0 [facility] Comment on above: Performed By: #### C MP ####[facility] Zjhhqozjrs[address] [place], [place] [address]Dr. Farhat Lela Albumin/Globulin [Mass ratio] 0.9 {ratio} Normal [facility] Comment on above: Performed By: #### C MP ####[facility] Expxbbwgmy6736[address] [place], [place] [address]Dr. Farhat Leal ALP [Catalytic activity/Vol] 70 U/L Normal 46-116 [facility] Comment on above: Performed By: #### C MP ####[facility] Syrcsxrbvb3612[address] [place], [place] [address]Dr. Farhat Leal ALT [Catalytic activity/Vol] 13 U/L Critically low 16-63 [facility] Comment on above: Performed By: #### C MP ####[facility] Qkwtfzmkeq[address] [place], [place] [address]Dr. Farhat Leal Anion gap [Moles/Vol] 14.6 mmol/L Normal [facility] Comment on above: Performed By: #### C MP ####[facility] Zjrjmntszu8801[address] [place], [place] [address]Dr. Farhat Leal AST [Catalytic activity/Vol] 17 U/L Normal 15-37 [facility] Comment on above: Performed By: #### C MP ####[facility] Eehxvwnczh75[address] [place] [address]Dr. Farhat Leal Bilirubin [Mass/Vol] 0.8 mg/dL Normal 0.2-1.0 [facility] Comment on above: Performed By: #### C MP ####[facility] Utlbttgipn08[address] [place] [address]Dr. Farhat Leal Calcium [Mass/Vol] 8.9 mg/dL Normal 8.5-10.1 [facility] Comment on above: Performed By: #### C MP ####[facility] Vpthmvbwkr4[address] [place], [place] [address]Dr. Farhat Leal Chloride [Moles/Vol] 102 mmol/L Normal 98-107 [facility] Comment on above: Performed By: #### C MP ####[facility] Qovwkiqbzd18[address] [place], [place] [address]Dr. Farhat Elvis CO2 [Moles/Vol] 22.9 mmol/L Normal 21.0-32.0 [facility] Comment on above: Performed By: #### C MP ####[facility] Etxlefcofp46[address] [place], [place] [address]Dr. Farhat Elvis Creatinine [Mass/Vol] 1.20 mg/dL Normal 0.70-1.30 [facility] Comment on above: Performed By: #### C MP ####[facility] Jpuqfwzcnw4[address] [place], [place] [address]Dr. Farhat Elvis EGFR-AF BURUNDIAN >60 Normal >=60 [facility] Comment on above: Performed By: #### C MP ####[facility] Jdszfgwmvv6772 [place] [id number]. Madelynlorri Elvis EGFR-NON AF BURUNDIAN 59 mL/min/1.73m2 Critically low >=60 [facility] Comment on above: Performed By: #### C MP ####[facility] Qgjrxtgrlz5134 [place] [phone]. Farhat Leal Globulin (S) [Mass/Vol] 3.1 g/dL Normal [facility] Comment on above: Performed By: #### C MP ####[facility] Zclcliumys4104 [place] [phone]. Farhat Leal Glucose [Mass/Vol] 447 mg/dL Critically high 74-106 T [facility] Comment on above: Performed By: #### C MP ####[facility] Azpqabecag9338 [place] [phone]. Farhat Leal Potassium [Moles/Vol] 4.5 mmol/L Normal 3.5-5.1 [facility] Comment on above: Performed By: #### C MP ####[facility] Klpycntlnl4349 [place] [address]Dr. Farhat Leal Protein [Mass/Vol] 6.0 g/dL Critically low 6.4-8.2 [facility] Comment on above: Performed By: #### C MP ####[facility] Jfudymobob6[address] [place], [place] [address]Dr. Farhat Leal Sodium [Moles/Vol] 135 mmol/L Critically low 136-145 [facility] Comment on above: Performed By: #### C MP ####[facility] Cannypqrkl[address] [place], [place] [address]Dr. Farhat Leal Urea nitrogen [Mass/Vol] 52.0 mg/dL Critically high 7.0-18.0 [facility] Comment on above: Performed By: #### C MP ####[facility] Tkfxnskcfd8[address] [place], [place] [address]Dr. Farhat Leal Urea nitrogen/Creatinine [Mass ratio] 43.3 mg/mg Normal [facility] Comment on above: Performed By: #### C MP ####[facility] Mrqtwifrvf0406 [place] [id number]. Farhat Leal PROTIMEon 05-06-2022 INR Coag (PPP) [Relative time] 2.25 {INR} Normal [facility] Comment on above: Performed By: #### P T ####[facility] Ywycdbpcrp26[address] [place], [place] [address]Dr. Farhat Leal INR GUIDELINES SEE BELOW Normal [facility] Comment on above: Result Comment: MALINA RED INR: 2.0 - 3.0 CONDITIONS NOT LISTED BELOW 2.5 - 3.5 FOR PROSTHETIC HEART VALVE REPLACEMENT 2.5 - 3.5 RECURRENT THROMBOSIS Performed By: #### P T ####[facility] Utyimdunhu27[address] [place], [place] [address]Dr. Farhat Leal PT Coag (PPP) [Time] 22.8 s Critically high 9.0-11.6 The [facility] Comment on above: Performed By: #### P T ####[facility] Ibuugqlppo2583[address] [place], [place] [address]Dr. Farhat Leal FK506 (TACROLIMUS) WHOLE BLO ODon 05-04-2022 Tacrolimus (FK506), Blood 10.4 ng/mL Normal 2.0-20.0 [facility] Comment on above: Result Comment: Trou gh (immediately following transplant) 15.0 . Trough (steady state, 2 weeks or more after transplant): 3.0 - 8.0 . Performed by LC-MS/MS technology. Performed By: #### F [id number] ####[facility] Itsbeniugy558[address] [place], [place] [address]Dr. Farhat Leal CBC AUTO DIFFon 05-01-2022 BASO # 0.1 103/ul Normal 0.0-0.1 [facility] Comment on above: Performed By: #### C BC ####[facility] Kzbqyfetth067[address] [place], [place] [address]Dr. Farhat Leal Basophils/100 WBC (Bld) 0.7 % Normal 0.2-2.0 The [facility] Comment on above: Performed By: #### C BC ####[facility] Rtgvorefsq5[address] [place], [place] [address]Dr. Farhat Leal EO # 0.2 103/ul Normal 0.0-0.7 The [facility] Comment on above: Performed By: #### C BC ####[facility] Xybawzrhco7[address] [place], [place] [address]Dr. Farhat Leal Eosinophils/100 WBC (Bld) 3.2 % Normal 0.9-7.0 The [facility] Comment on above: Performed By: #### C BC ####[facility] Lvkfurrxch2898 [place] [address]Dr. Farhat Leal Erythrocyte distribution width (RBC) [Ratio] 16.4 % Critically high 11.0-15.0 [facility] Comment on above: Performed By: #### C BC ####[facility] Rwrmnkrxtl266[address] [place], [place] [address]Dr. Farhat Leal Hematocrit (Bld) [Volume fraction] 35.1 % Critically low 42.0-54.0 [facility] Comment on above: Performed By: #### C BC ####[facility] Wuxjemcyzs6945[address] [place], [place] [address]Dr. Farhat Leal Hemoglobin (Bld) [Mass/Vol] 11.6 g/dL Critically low 14.0-18.0 [facility] Comment on above: Performed By: #### C BC ####[facility] Vxtrdxwvzb0175[address] [place], [place] [address]Dr. Farhat Leal IG # 0.03 10e3/ul Normal 0.00-0.03 [facility] Comment on above: Performed By: #### C BC ####[facility] Xjasnkycnw5394[address] [place], [place] [address]Dr. Farhat Leal IG % 0.4 % Normal 0.0-0.5 [facility] Comment on above: Performed By: #### C BC ####[facility] Okbugafnok408[address] [place], [place] [address]Dr. Farhat Leal LYMPH # 2.4 103/ul Normal 1.2-3.8 The [facility] Comment on above: Performed By: #### C BC ####[facility] Hzbusfdssn532499 [address] [place], [place] [address]Dr. Farhat Leal Lymphocytes/100 WBC (Bld) 35.1 % Normal 20.5-60.0 The [facility] Comment on above: Performed By: #### C BC ####[facility] Fqwfffmzze7854[address] [place], [place] [address]Dr. Farhat Leal MANUAL DIFF REQ NO Normal [facility] Comment on above: Performed By: #### C BC ####[facility] Awnxoqciyw2203 [place] [phone]. Farhat Elvis MCH (RBC) [Entitic mass] 29.4 pg Normal 25.9-34.0 The [facility] Comment on above: Performed By: #### C BC ####[facility] Bhscgsgpzg8376 [place] [id number]. Farhat Elvis MCHC (RBC) [Mass/Vol] 33.0 g/dL Normal 29.9-35.2 The [facility] Comment on above: Performed By: #### C BC ####[facility] Yndhalyknk9427 [place] [phone]. Madelynlorri Leal MCV (RBC) [Entitic vol] 88.9 fL Normal 80.0-94.0 The [facility] Comment on above: Performed By: #### C BC ####[facility] Suuugqavgr202[address] [place], [place] [address]Dr. Farhat Leal MONO # 0.7 103/ul Normal 0.3-0.8 The [facility] Comment on above: Performed By: #### C BC ####[facility] Zsxxaehqtv161[address] [place], [place] [address]Dr. Farhat Leal Monocytes/100 WBC (Bld) 9.6 % Normal 1.7-12.0 The [facility] Comment on above: Performed By: #### C BC ####[facility] Wggrurexjf3507[address] [place], [place] [address]Dr. Farhat Leal NEUT # 3.5 103/ul Normal 1.4-6.5 The [facility] Comment on above: Performed By: #### C BC ####[facility] Zglmmkkfvo01[address] [place], [place] [id number]. Farhat Leal Neutrophils/100 WBC (Bld) 51.0 % Normal 43.0-75.0 The [facility] Comment on above: Performed By: #### C BC ####[facility] Pnmxeoitlw914[address] [place], [place] [id number]. Farhat Leal Platelet mean volume (Bld) [Entitic vol] 10.3 fL Normal 9.5-13.5 The [facility] Comment on above: Performed By: #### C BC ####[facility] Gpvxgtjobl3779 [place] [phone]. Farhat Elvis PLT 184 103/ul Normal 150-450 [facility] Comment on above: Performed By: #### C BC ####[facility] Rmmnvxuejy2759 [place] [phone]. Madelynlorri Leal RBC 3.95 106/ul Critically low 4.70-6.10 [facility] Comment on above: Performed By: #### C BC ####[facility] Gdngmvpeed4851 [place] [phone]. Madelynlorri Elvis WBC 7.0 103/ul Normal 4.0-11.0 [facility] Comment on above: Performed By: #### C BC ####[facility] Imqbarkqrg3859 [place] [address]Dr. Farhat Leal PROF 14(COMP METB)on 023 Albumin [Mass/Vol] 2.6 g/dL Critically low 3.4-5.0 [facility] Comment on above: Performed By: #### C MP ####[facility] Xhhivwglvx318[address] [place], [place] [address]Dr. Farhat Leal Albumin/Globulin [Mass ratio] 0.9 {ratio} Normal [facility] Comment on above: Performed By: #### C MP ####[facility] Bakuxskohl1625 [place] [address]Dr. Farhat Leal ALP [Catalytic activity/Vol] 53 U/L Normal 46-116 [facility] Comment on above: Performed By: #### C MP ####[facility] Jrhlymiuuu8139 [place] [address]Dr. Farhat Leal ALT [Catalytic activity/Vol] 17 U/L Normal 16-63 [facility] Comment on above: Performed By: #### C MP ####[facility] Ivekjlrvfj8127 [place] [address]Dr. Farhat Leal Anion gap [Moles/Vol] 10.0 mmol/L Normal [facility] Comment on above: Performed By: #### C MP ####[facility] Ywzrxzzcjx0629 [place] [phone]. Farhat Leal AST [Catalytic activity/Vol] 19 U/L Normal 15-37 The [facility] Comment on above: Performed By: #### C MP ####[facility] Ngmitldzfq9126 [place] [phone]. Farhat Leal Bilirubin [Mass/Vol] 0.5 mg/dL Normal 0.2-1.0 [facility] Comment on above: Performed By: #### C MP ####[facility] Fcrgemmkbd631[address] [place], [place] [address]Dr. Farhat Leal Calcium [Mass/Vol] 8.4 mg/dL Critically low 8.5-10.1 Th e [facility] Comment on above: Performed By: #### C MP ####[facility] Loqdxxsngv09[address] [place], [place] [address]Dr. Farhat Leal Chloride [Moles/Vol] 108 mmol/L Critically high 98-107 [facility] Comment on above: Performed By: #### C MP ####[facility] Sqezybseig6[address] [place], [place] [address]Dr. Farhat Leal CO2 [Moles/Vol] 26.9 mmol/L Normal 21.0-32.0 [facility] Comment on above: Performed By: #### C MP ####[facility] Eheljltbkz0410[address] [place], [place] [address]Dr. Farhat Leal Creatinine [Mass/Vol] 1.20 mg/dL Normal 0.70-1.30 [facility] Comment on above: Performed By: #### C MP ####[facility] Xfxeslkqxn7708 [place] [phone]. Farhat Elvis EGFR-AF BURUNDIAN >60 Normal >=60 [facility] Comment on above: Performed By: #### C MP ####[facility] Gxsxctmery492[address] [place], [place] [address]Dr. Farhat Elvis EGFR-NON AF BURUNDIAN 59 mL/min/1.73m2 Critically low >=60 The [facility] Comment on above: Performed By: #### C MP ####[facility] Ijnncofzva0110 [place] [phone]. Farhat Leal Globulin (S) [Mass/Vol] 3.0 g/dL Normal [facility] Comment on above: Performed By: #### C MP ####[facility] Gypabypnwu5488 [place] [phone]. Farhat Leal Glucose [Mass/Vol] 213 mg/dL Critically high 74-106 [facility] Comment on above: Performed By: #### C MP ####[facility] Upkhgvbgut5816 [place] [phone]. Farhat Leal Potassium [Moles/Vol] 3.9 mmol/L Normal 3.5-5.1 [facility] Comment on above: Performed By: #### C MP ####[facility] Qplzywouht0085 [place] [address]Dr. Farhat Leal Protein [Mass/Vol] 5.6 g/dL Critically low 6.4-8.2 [facility] Comment on above: Performed By: #### C MP ####[facility] Dowyrptvij9118 [place] [address]Dr. Farhat Leal Sodium [Moles/Vol] 141 mmol/L Normal 136-145 [facility] Comment on above: Performed By: #### C MP ####[facility] Boimwlefxx4873 [place] [phone]. Farhat Leal Urea nitrogen [Mass/Vol] 61.0 mg/dL Critically high 7.0-18.0 [facility] Comment on above: Performed By: #### C MP ####[facility] Rvzpjjzwvv7108 [place] [address]Dr. Farhat Leal Urea nitrogen/Creatinine [Mass ratio] 50.8 mg/mg Normal [facility] Comment on above: Performed By: #### C MP ####[facility] Ibibecwfns[address] [place], [place] [address]Dr. Farhat Leal FK506 (TACROLIMUS) WHOLE BLO ODon 04-27-2022 Tacrolimus (FK506), Blood 16.5 ng/mL Normal 2.0-20.0 [facility] Comment on above: Result Comment: Trou gh (immediately following transplant) 15.0 . Trough (steady state, 2 weeks or more after transplant): 3.0 - 8.0 . Performed by LC-MS/MS technology. Performed By: #### F K506T ####[facility] Cbtojvguvm9206[address] [place], [place] [address]Dr. Farhat Leal CBC AUTO DIFFon 04-24-2022 BASO # 0.0 103/ul Normal 0.0-0.1 The [facility] Comment on above: Performed By: #### C BC ####[facility] Gmujhnphqu877[address] [place], [place] [address]Dr. Farhat Leal Basophils/100 WBC (Bld) 0.5 % Normal 0.2-2.0 The [facility] Comment on above: Performed By: #### C BC ####[facility] Vcimtrtzmv1345[address] [place], [place] [address]Dr. Farhat Leal EO # 0.2 103/ul Normal 0.0-0.7 The [facility] Comment on above: Performed By: #### C BC ####[facility] Tjpvqpxlqv17[address] [place], [place] [address]Dr. Farhat Leal Eosinophils/100 WBC (Bld) 3.1 % Normal 0.9-7.0 The [facility] Comment on above: Performed By: #### C BC ####[facility] Pryjbwxkum462[address] [place], [place] [address]Dr. Farhat Leal Erythrocyte distribution width (RBC) [Ratio] 16.3 % Critically high 11.0-15.0 The [facility] Comment on above: Performed By: #### C BC ####[facility] Xsvyexwjtm1965[address] [place], [place] [address]Dr. Farhat Leal Hematocrit (Bld) [Volume fraction] 34.0 % Critically low 42.0-54.0 The [facility] Comment on above: Performed By: #### C BC ####[facility] Mshaevxugl1207[address] [place], [place] [address]Dr. Farhat Leal Hemoglobin (Bld) [Mass/Vol] 11.6 g/dL Critically low 14.0-18.0 [facility] Comment on above: Performed By: #### C BC ####[facility] Bryavbpaja0212 [place] [phone]. Madelynlorri Elvis IG # 0.02 10e3/ul Normal 0.00-0.03 [facility] Comment on above: Performed By: #### C BC ####[facility] Lacdtnptwx6798 [place] [phone]. Farhat Leal IG % 0.4 % Normal 0.0-0.5 [facility] Comment on above: Performed By: #### C BC ####[facility] Ppcpkokdff8504 [place] [address]Dr. Farhat Leal LYMPH # 2.2 103/ul Normal 1.2-3.8 [facility] Comment on above: Performed By: #### C BC ####[facility] Pualtqrlpa4189 [place] [address]Dr. Farhat Leal Lymphocytes/100 WBC (Bld) 38.8 % Normal 20.5-60.0 [facility] Comment on above: Performed By: #### C BC ####[facility] Dvdbiidbyn2631 [place] [address]DrSkylar Leal MANUAL DIFF REQ NO Normal [facility] Comment on above: Performed By: #### C BC ####[facility] Xjekbcdhis0519 [place] [phone]. Farhat Leal MCH (RBC) [Entitic mass] 30.1 pg Normal 25.9-34.0 [facility] Comment on above: Performed By: #### C BC ####[facility] Faamhbrjxf1086 [place] [phone]. Madelynlorri Leal MCHC (RBC) [Mass/Vol] 34.1 g/dL Normal 29.9-35.2 The [facility] Comment on above: Performed By: #### C BC ####[facility] Plwpeenrch0130 [place] [phone]. Farhat Leal MCV (RBC) [Entitic vol] 88.1 fL Normal 80.0-94.0 [facility] Comment on above: Performed By: #### C BC ####[facility] Azifdbloze6687 [place] [phone]. Farhat Leal MONO # 0.6 103/ul Normal 0.3-0.8 The [facility] Comment on above: Performed By: #### C BC ####[facility] Dwpbeinzmm0493 [place] [phone]. Farhat Leal Monocytes/100 WBC (Bld) 10.8 % Normal 1.7-12.0 The [facility] Comment on above: Performed By: #### C BC ####[facility] Tgefaioiok9044 [place] [phone]. Farhat Leal NEUT # 2.6 103/ul Normal 1.4-6.5 The [facility] Comment on above: Performed By: #### C BC ####[facility] Qqfokpczvd3713 [place] [phone]. Farhat Leal Neutrophils/100 WBC (Bld) 46.4 % Normal 43.0-75.0 [facility] Comment on above: Performed By: #### C BC ####[facility] Slpdwomeaz4054 [place] [phone]. Farhat Leal Platelet mean volume (Bld) [Entitic vol] 10.9 fL Normal 9.5-13.5 The [facility] Comment on above: Performed By: #### C BC ####[facility] Orszzlgxvu0651 [place] [phone]. Farhat Leal PLT 159 103/ul Normal 150-450 [facility] Comment on above: Performed By: #### C BC ####[facility] Kkdyjvfeiz6321 [place] [phone]. Farhat Leal RBC 3.86 106/ul Critically low 4.70-6.10 [facility] Comment on above: Performed By: #### C BC ####[facility] Fmqytkcfjb7437 [place] [phone]. Farhat Leal WBC 5.6 103/ul Normal 4.0-11.0 The [facility] Comment on above: Performed By: #### C BC ####[facility] Avvpbccsyq6321 [place] [address]Dr. Farhat Leal PROTIMEon 04-24-2022 INR Coag (PPP) [Relative time] 3.23 {INR} Normal [facility] Comment on above: Performed By: #### P T ####[facility] Zkkdgwjeyd4963 [place] [address]Dr. Farhat Leal INR GUIDELINES SEE BELOW Normal [facility] Comment on above: Result Comment: MALINA RED INR: 2.0 - 3.0 CONDITIONS NOT LISTED BELOW 2.5 - 3.5 FOR PROSTHETIC HEART VALVE REPLACEMENT 2.5 - 3.5 RECURRENT THROMBOSIS Performed By: #### P T ####[facility] Wybnacufru4[address] [place], [place] [address]Dr. Farhat Leal PT Coag (PPP) [Time] 32.0 s Critically high 9.0-11.6 The [facility] Comment on above: Performed By: #### P T ####[facility] Pmaugczwdj0137[address] [place], [place] [address]Dr. Farhat Leal FK506 (TACROLIMUS) WHOLE BLO ODon 04-20-2022 Tacrolimus (FK506), Blood 13.9 ng/mL Normal 2.0-20.0 The [facility] Comment on above: Result Comment: Trou gh (immediately following transplant) 15.0 . Trough (steady state, 2 weeks or more after transplant): 3.0 - 8.0 . Performed by LC-MS/MS technology. Performed By: #### F K506T ####[facility] Iussfyqmep0287[address] [place], [place] [address]Dr. Farhat Leal CBC AUTO DIFFon 04-17-2022 BASO # 0.0 103/ul Normal 0.0-0.1 [facility] Comment on above: Performed By: #### C BC ####[facility] Uluqfsivav8490[address] [place], [place] [address]DrSkylar Leal Basophils/100 WBC (Bld) 0.4 % Normal 0.2-2.0 The [facility] Comment on above: Performed By: #### C BC ####[facility] Poxbidmgfi8[address] [place], [place] [address]Dr. Farhat Leal EO # 0.2 103/ul Normal 0.0-0.7 [facility] Comment on above: Performed By: #### C BC ####[facility] Mnnqebuzqw6668 [place] [address]Dr. Farhat Leal Eosinophils/100 WBC (Bld) 2.8 % Normal 0.9-7.0 [facility] Comment on above: Performed By: #### C BC ####[facility] Idaetnywdg033[address] [place], [place] [address]Dr. Farhat Leal Erythrocyte distribution width (RBC) [Ratio] 16.1 % Critically high 11.0-15.0 The [facility] Comment on above: Performed By: #### C BC ####[facility] Apuugxzdyz4892 [place] [address]Dr. Farhat Leal Hematocrit (Bld) [Volume fraction] 35.7 % Critically low 42.0-54.0 [facility] Comment on above: Performed By: #### C BC ####[facility] Ueuhwazshf0004[address] [place], [place] [address]Dr. Farhat Leal Hemoglobin (Bld) [Mass/Vol] 12.2 g/dL Critically low 14.0-18.0 [facility] Comment on above: Performed By: #### C BC ####[facility] Fefcatdglj5092[address] [place], [place] [address]Dr. Farhat Leal IG # 0.03 10e3/ul Normal 0.00-0.03 [facility] Comment on above: Performed By: #### C BC ####[facility] Cgnghesahy2703[address] [place], [place] [address]Dr. Farhat Leal IG % 0.4 % Normal 0.0-0.5 [facility] Comment on above: Performed By: #### C BC ####[facility] Dztzyimdeq984[address] [place], [place] [address]Dr. Farhat Leal LYMPH # 2.4 103/ul Normal 1.2-3.8 [facility] Comment on above: Performed By: #### C BC ####[facility] Jxlmbypjfa8945 [place] [phone]. Farhat Elvis Lymphocytes/100 WBC (Bld) 36.1 % Normal 20.5-60.0 [facility] Comment on above: Performed By: #### C BC ####[facility] Apxjupfwke2776 [place] [address]Dr. Madelynlorri Leal MANUAL DIFF REQ NO Normal [facility] Comment on above: Performed By: #### C BC ####[facility] Lnifcqpytq1926 [place] [address]Dr. Farhat Elvis MCH (RBC) [Entitic mass] 30.3 pg Normal 25.9-34.0 [facility] Comment on above: Performed By: #### C BC ####[facility] Hmshovzwyl8978[address] [place], [place] [address]Dr. Madelynlorri Leal MCHC (RBC) [Mass/Vol] 34.2 g/dL Normal 29.9-35.2 The [facility] Comment on above: Performed By: #### C BC ####[facility] Prscxwhhxq1718[address] [place], [place] [address]Dr. Madelynlorri Leal MCV (RBC) [Entitic vol] 88.6 fL Normal 80.0-94.0 [facility] Comment on above: Performed By: #### C BC ####[facility] Xnpspxgpck5460[address] [place], [place] [address]Dr. Farhat Leal MONO # 0.7 103/ul Normal 0.3-0.8 The [facility] Comment on above: Performed By: #### C BC ####[facility] Hdzydptwdz2656[address] [place], [place] [address]Dr. Madelynlorri Leal Monocytes/100 WBC (Bld) 10.1 % Normal 1.7-12.0 The [facility] Comment on above: Performed By: #### C BC ####[facility] Pnusgxkivp[address] [place], [place] [address]Dr. Farhat Leal NEUT # 3.4 103/ul Normal 1.4-6.5 [facility] Comment on above: Performed By: #### C BC ####[facility] Twwcldbpxt0096 [place] [address]Dr. Farhat Leal Neutrophils/100 WBC (Bld) 50.2 % Normal 43.0-75.0 [facility] Comment on above: Performed By: #### C BC ####[facility] Hupsjzrsqe9371 [place] [address]Dr. Farhat Leal Platelet mean volume (Bld) [Entitic vol] 11.8 fL Normal 9.5-13.5 [facility] Comment on above: Performed By: #### C BC ####[facility] Shofjkjqnv1675 [place] [address]Dr. Farhat Leal PLT 193 103/ul Normal 150-450 [facility] Comment on above: Performed By: #### C BC ####[facility] Vdruqkryzm[address] [place], [place] [address]Dr. Farhat Leal RBC 4.03 106/ul Critically low 4.70-6.10 [facility] Comment on above: Performed By: #### C BC ####[facility] Jneiphluuv3123[address] [place], [place] [address]Dr. Frahat Leal WBC 6.8 103/ul Normal 4.0-11.0 [facility] Comment on above: Performed By: #### C BC ####[facility] Eomrfvfcej9812[address] [place], [place] [address]Dr. Farhat Leal PROF 14(COMP METB)on 023 Albumin [Mass/Vol] 2.9 g/dL Critically low 3.4-5.0 [facility] Comment on above: Performed By: #### C MP ####[facility] [address] [place] [address]Dr. Farhat Leal Albumin/Globulin [Mass ratio] 0.9 {ratio} Normal [facility] Comment on above: Performed By: #### C MP ####[facility] Grncmifbcc[address] [place], [place] [address]Dr. Farhat Leal ALP [Catalytic activity/Vol] 67 U/L Normal 46-116 [facility] Comment on above: Performed By: #### C MP ####[facility] [address] [place] [address]Dr. Farhat Leal ALT [Catalytic activity/Vol] 15 U/L Critically low 16-63 [facility] Comment on above: Performed By: #### C MP ####[facility] S[address]fe[address]xy[address] [place] [address]Dr. Farhat Leal Anion gap [Moles/Vol] 10.8 mmol/L Normal Th e [facility] Comment on above: Performed By: #### C MP ####[facility] V[address]xedqipc[address] [place], [place] [address]Dr. Farhat Leal AST [Catalytic activity/Vol] 23 U/L Normal 15-37 [facility] Comment on above: Performed By: #### C MP ####[facility] Auidxbwkol[address] [place], [place] [address]Dr. aFrhat Leal Bilirubin [Mass/Vol] 0.6 mg/dL Normal 0.2-1.0 [facility] Comment on above: Performed By: #### C MP ####[facility] Dotharnokf[address] [place], [place] [address]Dr. Farhat Leal Calcium [Mass/Vol] 8.7 mg/dL Normal 8.5-10.1 [facility] Comment on above: Performed By: #### C MP ####[facility] Albdeiemvh[address] [place], [place] [address]Dr. Farhat Leal Chloride [Moles/Vol] 105 mmol/L Normal 98-107 [facility] Comment on above: Performed By: #### C MP ####[facility] Vdffpippxy[address] [place], [place] [address]Dr. Farhat Leal CO2 [Moles/Vol] 29.5 mmol/L Normal 21.0-32.0 [facility] Comment on above: Performed By: #### C MP ####[facility] Vuszhbqdxx[address] [place], [place] [address]Dr. Farhat Leal Creatinine [Mass/Vol] 1.37 mg/dL Critically high 0.70-1.30 [facility] Comment on above: Performed By: #### C MP ####[facility] [address] [place], [place] [address]Dr. Farhat Elvis EGFR-AF BURUNDIAN >60 Normal >=60 [facility] Comment on above: Performed By: #### C MP ####[facility] B[address]itbmamv[address] [place] [address]Dr. Farhat Elvis EGFR-NON AF BURUNDIAN 50 mL/min/1.73m2 Critically low >=60 [facility] Comment on above: Performed By: #### C MP ####[facility] Yjbslxwebw[address] [place] [address]Dr. Farhat Elvis Globulin (S) [Mass/Vol] 3.1 g/dL Normal [facility] Comment on above: Performed By: #### C MP ####[facility] Tcitaosjwh[address] [place], [place] [address]Dr. Madelynlorri Elvis Glucose [Mass/Vol] 203 mg/dL Critically high 74-106 [facility] Comment on above: Performed By: #### C MP ####[facility] S[address]epqij[address] [place] [address]Dr. Farhat Leal Potassium [Moles/Vol] 4.3 mmol/L Normal 3.5-5.1 [facility] Comment on above: Performed By: #### C MP ####[facility] Pzmmyedhcn[address] [place], [place] [address]Dr. Madelynlorri Elvis Protein [Mass/Vol] 6.0 g/dL Critically low 6.4-8.2 [facility] Comment on above: Performed By: #### C MP ####[facility] Q[address]wjvmop[address] [place] [address]Dr. Farhat Elvis Sodium [Moles/Vol] 141 mmol/L Normal 136-145 [facility] Comment on above: Performed By: #### C MP ####[facility] Xvemoyfbzv[address] [place], [place] [address]Dr. Farhat Leal Urea nitrogen [Mass/Vol] 65.0 mg/dL Critically high 7.0-18.0 [facility] Comment on above: Performed By: #### C MP ####[facility] Eaplkradft[address] [place], [place] [address]Dr. Farhat Leal Urea nitrogen/Creatinine [Mass ratio] 47.4 mg/mg Normal [facility] Comment on above: Performed By: #### C MP ####[facility] R[address]mo[address] [place] [address]Dr. Farhat Leal PROTIMEon 04-15-2022 INR Coag (PPP) [Relative time] 3.88 {INR} Normal [facility] Comment on above: Performed By: #### P T ####[facility] [address]ucjt[address] [place] [address]DrSkylar Farhat Leal INR GUIDELINES SEE BELOW Normal [facility] Comment on above: Result Comment: MALINA RED INR: 2.0 - 3.0 CONDITIONS NOT LISTED BELOW 2.5 - 3.5 FOR PROSTHETIC HEART VALVE REPLACEMENT 2.5 - 3.5 RECURRENT THROMBOSIS Performed By: #### P T ####[facility] Ugkkgattfb[address] [place] [address]Dr. Farhat Leal PT Coag (PPP) [Time] 38.1 s Critically high 9.0-11.6 [facility] Comment on above: Performed By: #### P T ####[facility] Ifderzmzmx[address] [place] [address]Dr. Farhat Leal Glucose Glucometer (dC) [M ass/Vol]Ordered By: Sadia Aguilar on 04-14-2022 Glucose [Mass/Vol] 162 mg/dL [facility] Comment on above: Random Glucose Refer ence Range is dependent on time and content of last meal. Glucose of more than 200 mg/dL in a nonstressed, ambulatory subject supports the diagnosis of Diabetes Mellitus. Glucose Poct Glucometerson 0 04-14-2022 Commemt1 Glu2: Cleaned Meter Normal [facility] Comment on above: Result Comment: PERF ORMED BY: [facility] [address] [place] [address] PATHOLOGIST PROPULSION MACHINERY SERVICE ENGINEER JOSE F ELLIOTT M.D. Performed By: #### G LULS #### Point of Care testing , Glucose [Mass/Vol] 162 mg/dL Normal [facility] Comment on above: Result Comment: [facility] Glucose Reference Range is dependent on time and content of last meal. Glucose of more than 200 mg/dL in a nonstressed, ambulatory subject supports the diagnosis of Diabetes Mellitus. Performed By: #### G MADY #### Point of Care testing , No Panel InformationOrdered By: Sadia Aguilar on 04-14-2022 Bedside Glucose Comment Glu2: cleaned meter [facility] MAGNESIUMon 04-13-2022 Magnesium [Mass/Vol] 1.7 mg/dL Critically low 1.8-2.4 [facility] Comment on above: Performed By: #### M HENRI Manzo ####[facility] [address]ix[address]ige[address] [place] [address]DrSkylar Leal PHOSPHORUSon 04-13-2022 Phosphate [Mass/Vol] 4.8 mg/dL Critically high 2.6-4.7 [facility] Comment on above: Performed By: #### HENRI Winters ####[facility] Rsfj[address]psz[address] [place], [place] [address]DrSkylar Leal PROTIMEon 04-13-2022 INR Coag (PPP) [Relative time] 3.16 {INR} Normal [facility] Comment on above: Performed By: #### P T ####[facility] Omirfxqznf[address] [place], [place] [address]DrSkylar Leal INR GUIDELINES SEE BELOW Normal [facility] Comment on above: Result Comment: MALINA RED INR: 2.0 - 3.0 CONDITIONS NOT LISTED BELOW 2.5 - 3.5 FOR PROSTHETIC HEART VALVE REPLACEMENT 2.5 - 3.5 RECURRENT THROMBOSIS Performed By: #### P T ####[facility] Setthhatzt[address] [place] [address]DrSkylar Leal PT Coag (PPP) [Time] 31.4 s Critically high 9.0-11.6 [facility] Comment on above: Performed By: #### P T ####[facility] Tzbrurbhe[address] [place], [place] [address]DrSkylar Leal MAGNESIUMon 03-11-2022 Magnesium [Mass/Vol] 1.6 mg/dL Critically low 1.8-2.4 [facility] Comment on above: Performed By: #### M G, PHOS ####[facility] [address]zwtvmpg[address] [place], [place] [address]Rx. Farhat Leal PHOSPHORUSon 03-11-2022 Phosphate [Mass/Vol] 5.3 mg/dL Critically high 2.6-4.7 [facility] Comment on above: Performed By: #### M G, PHOS ####[facility] [address] [place], [place] [address]In. Farhat Leal CNOVon 02-26-2022 CNOV Office Visit (VASSMN ) ALEX ALMONTE Kate ([id number]) 1945 M TRN Date Time Provider Department 02/26/22 3:00 PM HINA PETERSON During your visit today, we recorded the following information about you: Temperature Pulse Blood pressure 96.6 degrees 75/minute 88/75 Hina Peterson MD, MD 02/26/2022 4:31 PM [facility] [place] DEPARTMENT OF VASCULAR SURGERY OUTPATIENT VISIT DATE [...] his postop visit. He has been in retirement since then and has been recovering from his acute on chronic congestive heart failure. His wound has largely been healing without any issues and the maxwell and sutures were removed at the nursing facility. He comes here with a lateral wound eschar. He denies any fevers, chills, or any drainage. He is on anticoagulation. 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 Patient on mycophenolate mofetil , cellcept and prednisone Mixed hyperlipidemia due to type 2 diabetes mellitus ([facility]) 11/29/2021 Osteomyelitis ([facility]) 11/29/2021 Paroxysmal atrial fibrillation ([facility]) Renal transplant, status post SA node dysfunction ([facility]) s/p pacemaker Type 2 diabetes mellitus with diabetic neuropathy, with long-term current use of insulin ([facility]) 02/24/2002 PAST SURGICAL HISTORY Procedure Laterality [...] by mouth daily with lunch. Magic Cup Cochran with lunch aspirin, enteric coated (ASPIRIN, ENTERIC COATED) 81 mg EC tablet Take 1 tablet by (more content not included)... Normal [facility] PROTIMEon 02-25-2022 INR Coag (PPP) [Relative time] 1.31 {INR} Normal [facility] Comment on above: Performed By: #### P T ####[facility] [address] [place] [address]DrSkylar Leal INR GUIDELINES SEE BELOW Normal [facility] Comment on above: Result Comment: MALINA RED INR: 2.0 - 3.0 CONDITIONS NOT LISTED BELOW 2.5 - 3.5 FOR PROSTHETIC HEART VALVE REPLACEMENT 2.5 - 3.5 RECURRENT THROMBOSIS Performed By: #### P T ####[facility] [address] [place], [place] [address]CnSkylar Farhat Leal PT Coag (PPP) [Time] 13.7 s Critically high 9.0-11.6 [facility] Comment on above: Performed By: #### P T ####[facility] [address] [place], [place] [address]GySkylar Farhat Elvis Hasasn 02-19-2022 CNPN Telephone (TXCTGL) ALEX ALMONTE ([id number]) 1945 M TRN Date Time Provider Department 02/19/22 AUGUSTA MEDRANO TXCTGL During your visit today, we recorded the following information about you: Augusta Medrano RN 02/19/2022 11:16 AM Signed Alex Almonte's nursing facility, [facility], called regarding elevated tacrolimus level (23.9). Spoke with bedside nurse, Zoe, today. Level is from last week- unable to [...] by mouth daily with lunch. 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/2002 DIABETES UNCOMPL ADULT-UNCONTRLLED [[id number]] 02/24/2002 KIDNEY TRANSPLANT STATUS [Z94.0] 09/07/2003 PROPHYLACTIC IMMUNOTHERAPY [Z29.8] 07/30/2006 CORRECTION STEROIDS [[id number]] 07/30/2006 VITAMIN D DEFICIENCY NOS [E55.9] 09/07/2008 [...] diabetes mellitus with diabetic peripher*11/29/[address] cro[place] artery of extremity w*11/29/2021 Malnutrition of moderate degree (HCC) [E44.0] 12/01/2021 Dermatitis associated with moisture [L30.8] 12/04/2021 Encounter Status:Closed by AUGUSTA MEDRANO on 02/19/22 [facility] Sonya 02-18-2022 CNPN Telephone (PODCCP) SUZYMINEJESÚS Love ([id number]) 1945 M TRN Date Time Provider Department 02/18/22 DEVON MOREIRA PODREAL During your visit today, we recorded the following information about you: Yumiko Denise 02/18/2022 3:16 PM Signed Reason for call: Mr. Almonte would like to request a sooner appointment with Dr. Peterson than 04/13/2022. Contact Name (if not the patient) Alex's nurse Home and cell number(Ask for Alex's nurse) [phone] Diagnosis 4 mo f/u wound check Best regards, Yumiko Beard 02/19/2022 12:22 PM Signed Alex [...] by mouth. Take one (1) tablet M-W-F - tacrolimus IR (PROGRAF) 1 mg capsule [...] by mouth daily with lunch. 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/2002 DIABETES UNCOMPL ADULT-UNCONTRLLED [[id number]] 02/24/2002 KIDNEY TRANSPLANT STATUS [Z94.0] 09/07/2003 PROPHYLACTIC IMMUNOTHERAPY [Z29.8] 07/30/2006 CORRECTION STEROIDS [[id number]] 07/30/2006 VITAMIN D DEFICIENCY NOS [E55.9] 09/07/2008 [...] diabetes mellitus with diabetic peripher*11/29/[address] croix artery of extremity w*11/29/2021 Malnutrition of moderate degree (HCC) [E44.0] 12/01/2021 Dermatitis associated with moisture [L30.8] 12/04/2021 Encounter Status:Closed by CHEASTY (more content not included)... Normal [facility] CNOVon 02-05-2022 CNOV Office Visit (TXCTGL ) ALEX ALMONTE ([id number]) 1945 M TRN Date Time Provider Department 02/05/22 8:20 AM [facility] TXCTGL During your visit today, we recorded the following information about you: Temperature Pulse Blood pressure 96.7 degrees 79/minute 72/42 Asia Pike MD 02/05/2022 9:38 AM Signed [facility] [place] Transplant Follow up Portions of this note [...] and snacks patient declined. Indra scale at [facility]: 166.2 lbs per patient. Bed sore on coccyx causing discomfort. Being changed regularly at [facility]- reported to be smaller around but still as deep. Patient not very up to date with medications. Patient brought paperwork from [employer] with all medications being received. Patient unsure if they have been drawing labs regularly. Last Tac from 01/19: 12.9 and K 5.9. In need of current labs. Lab orders will be sent with patient and follows as below: Kidney and Pancreas Transplant Standing Lab Orders [address] [place], [place] [address] February 05, 2022 Alex Almonte 1945 [id number] STANDARD TESTING: Diagnosis Codes: Z94.0 Kidney Transplant [...] AT YOUR LABORATORY FACILITY AND FAX TO [phone]. PLEASE CALL [phone]. Provider: Dr. Pike Current Outpatient Medications Medication [...] Take 237 (more content not included)... Normal [facility] PROTEIN CREATININE RATIOon 1 04-08-2021 Protein/Creatinine (U) [Mass ratio] 0.10 mg/mg <0.15 mg/mg [facility] PROTIMEon 02-05-2022 INR Coag (PPP) [Relative time] 2.90 {INR} Normal [facility] Comment on above: Performed By: #### P T ####[facility] [address] [place] [address]DrSkylar Leal INR GUIDELINES SEE BELOW Normal [facility] Comment on above: Result Comment: MALINA RED INR: 2.0 - 3.0 CONDITIONS NOT LISTED BELOW 2.5 - 3.5 FOR PROSTHETIC HEART VALVE REPLACEMENT 2.5 - 3.5 RECURRENT THROMBOSIS Performed By: #### P T ####[facility] [address] [place] [address]Dr. Farhat Leal PT Coag (PPP) [Time] 29.2 s Critically high 9.0-11.6 [facility] Comment on above: Performed By: #### P T ####[facility] [address] [place], [place] [address]SdSkylar Leal Prot/Creat Uron 02-05-2022 Protein/Creatinine (U) [Mass ratio] 0.10 mg/mg Normal <0.15 [facility] Comment on above: Order Comment: Speci men Type: URINE SPECIMENOrdering Facility: [facility] Address: [address] [place] [address] Result Comment: Adul t Proteinuria Categories: <0.15 mg/mg is considered normal to mildly increased 0.15 - 0.50 mg/mg is considered moderately increased >0.50 mg/mg is considered severely increased KDIGO. (2013). KDIGO 2012 Clinical Practice Guideline for the Evaluation and Management of Chronic Kidney Disease. Official Journal of the International Society of Nephrology, 3(1), 1-150. Performed By: #### 2 890-2 ####[facility] [id number] [place] [address] [place] Protein/Creatinine (U) [Mass ratio]on 02-05-2022 Creatinine (U) [Mass/Vol] 86.9 mg/dL 20.0 - 300.0 mg/dL [facility] Protein (U) [Mass/Vol] 9 mg/dL 0 - 20 mg/dL [facility] Creatinine (U) [Mass/Vol] 86.9 mg/dL Normal 20.0-300.0 [facility] Comment on above: Order Comment: Speci men Type: URINE SPECIMENOrdering Facility: [facility] Address: [address] [id number] Performed By: #### 2 890-2 ####[facility] [id number] [place] [address] [place] Protein (U) [Mass/Vol] 9 mg/dL Normal 0-[address] [facility] Comment on above: Order Comment: Speci men Type: URINE SPECIMENOrdering Facility: [facility] Address: [address] Performed By: #### 2 890-2 ####[facility] LABCL[facility] [id number] [place] [address] [place] URINALYSIS, DIPSTICK ONLYon 02-05-2022 Bilirubin Ql (U) Negative Normal Negative [facility] Comment on above: Order Comment: Speci men Type: URINE SPECIMEN Ordering Facility: [facility] Address: [address] [place] [address] Performed By: #### U A #### [facility] CLIA [id number] [address] [place] [address] [place] Clarity (Unsp spec) Clear Normal Clear [facility] Comment on above: Order Comment: Speci men Type: URINE SPECIMEN Ordering Facility: [facility] Address: [address] [place] [address] Performed By: #### U A #### [facility] CLIA [id number] [address] [place] [address] [place] Color (U) Yellow Normal Yellow [facility] Comment on above: Order Comment: Speci men Type: URINE SPECIMEN Ordering Facility: [facility] Address: [address] [place] [address] Performed By: #### U A #### [facility] CLIA [id number] [address] [place] [address] [place] Glucose Test strip (U) [Mass/Vol] 3+ Abnormal Trace, Negative [facility] Comment on above: Order Comment: Speci men Type: URINE SPECIMEN Ordering Facility: [facility] Address: [address] [place], [place] [id number] Performed By: #### U A #### [facility] CLIA [id number] [address] [place] [address] [place] Hemoglobin Ql (U) Negative Normal Negative, Trace [facility] Comment on above: Order Comment: Speci men Type: URINE SPECIMEN Ordering Facility: [facility] Address: [address] [place] [address] Performed By: #### U A #### [facility] CLIA [id number] [address] [place] [address] [place] Ketones Ql (U) Trace Normal Negative, Trace [facility] Comment on above: Order Comment: Speci men Type: URINE SPECIMEN Ordering Facility: [facility] Address: [address] [place] [address] Performed By: #### U A #### [facility] CLIA [id number] [address] [place] [address] [place] Leukocyte esterase Test strip Ql (U) Negative Normal Negative, 25 Loraine/mL [facility] Comment on above: Order Comment: Speci men Type: URINE SPECIMEN Ordering Facility: [facility] Address: [address] [place] [address] Performed By: #### U A #### [facility] CLIA [id number] [address] [place] [address] [place] Nitrite Ql (U) Negative Normal Negative [facility] Comment on above: Order Comment: Speci men Type: URINE SPECIMEN Ordering Facility: [facility] Address: [address] [place] [address] Performed By: #### U A #### [facility] CLIA [id number] [address] [place] [address] [place] pH (U) 5.5 [pH] Normal 5.0-8.0 [facility] Comment on above: Order Comment: Speci men Type: URINE SPECIMEN Ordering Facility: [facility] Address: [address] [place] [address] Performed By: #### U A #### [facility] CLIA [id number] [address] [place] [address] [place] Protein (U) [Mass/Vol] Negative Normal Trace , Negative [facility] Comment on above: Order Comment: Speci men Type: URINE SPECIMEN Ordering Facility: [facility] Address: [address] [place] [address] Performed By: #### U A #### [facility] CLIA [id number] [facility] [place] Specific gravity (U) [Rel density] 1.014 Normal 1.005-1.030 [facility] Comment on above: Order Comment: Speci men Type: URINE SPECIMEN Ordering Facility: [facility] Address: [address] [place] [address] Performed By: #### U A #### [facility] CLIA [id number] [address] [place] [address] [place] Urobilinogen Ql (U) 1+ Abnormal Negative [facility] Comment on above: Order Comment: Speci men Type: URINE SPECIMEN Ordering Facility: [facility] Address: [address] [place] [address] Performed By: #### U A #### [facility] CLIA [id number] [address] [place] [address] [place] Bilirubin Ql (U) Negative Negative [facility] Clarity (Unsp spec) Clear Clear [facility] Color (U) Yellow Yellow [facility] Glucose Test strip (U) [Mass/Vol] 3+ Abnormal Trace, Negative [facility] Hemoglobin Ql (U) Negative Negative, Trace [facility] Ketones Ql (U) Trace Negative, Trace [facility] Leukocyte esterase Test strip Ql (U) Negative Negative, 25 Loraine/mL [facility] Nitrite Ql (U) Negative Negative [facility] pH (U) 5.5 [pH] 5.0 - 8.0 [facility] Protein (U) [Mass/Vol] Negative Trace , Negative [facility] Specific gravity (U) [Rel density] 1.014 1.005 - 1.030 [facility] Urobilinogen Ql (U) 1+ Abnormal Negative [facility] FK506 (TACROLIMUS) WHOLE BLO ODon 12-15-2022 Tacrolimus (FK506), Blood 11.1 ng/mL Normal 2.0-20.0 [facility] Comment on above: Result Comment: Trou gh (immediately following transplant) 15.0 . Trough (steady state, 2 weeks or more after transplant): 3.0 - 8.0 . Performed by LC-MS/MS technology. Performed By: #### F K506T ####[facility] [address] [place] [address]Dr. Farhat Leal PHOSPHORUSon 01-26-2022 Phosphate [Mass/Vol] 4.1 mg/dL Normal 2.6-4.7 [facility] Comment on above: Performed By: #### C CARA, PHOS ####[facility] [address] [place], [place] [address]Dr. Farhat Leal PROF 14(COMP METB)on 022 Albumin [Mass/Vol] 2.1 g/dL Critically low 3.4-5.0 [facility] Comment on above: Performed By: #### C CARA, PHOS ####[facility] [address] [place], [place] [address]Dr. Farhat Leal Albumin/Globulin [Mass ratio] 0.6 {ratio} Normal [facility] Comment on above: Performed By: #### C CAAR, PHOS ####[facility] Llpkdornru[address] [place], [place] [address]Dr. Farhat Leal ALP [Catalytic activity/Vol] 89 U/L Normal 46-116 [facility] Comment on above: Performed By: #### C CARA, PHOS ####[facility] Ycaaqujngc[address] [place], [place] [address]Dr. Farhat Leal ALT [Catalytic activity/Vol] 27 U/L Normal 16-63 [facility] Comment on above: Performed By: #### C CARA, PHOS ####[facility] Xrnzjympmx[address] [place], [place] [address]Dr. Farhat Leal Anion gap [Moles/Vol] 12.3 mmol/L Normal [facility] Comment on above: Performed By: #### C CARA, PHOS ####[facility] Kfakouynpy[address] [place] [phone]. Farhat Leal AST [Catalytic activity/Vol] 53 U/L Critically high 15-37 [facility] Comment on above: Performed By: #### C MP, PHOS ####[facility] Mobzqpnqbw34[address] [place] [phone]. Farhta Leal Bilirubin [Mass/Vol] 0.6 mg/dL Normal 0.2-1.0 [facility] Comment on above: Performed By: #### C MP, PHOS ####[facility] Lvfofhompc37[address] [place] [address]Dr. Farhat Leal Calcium [Mass/Vol] 8.0 mg/dL Critically low 8.5-10.1 Th e [facility] Comment on above: Performed By: #### C CARA, PHOS ####[facility] Glxuuhcyxc[address] [place], [place] [address]Dr. Farhat Leal Chloride [Moles/Vol] 97 mmol/L Critically low 98-107 [facility] Comment on above: Performed By: #### C CARA, PHOS ####[facility] Qvgnbbgunw[address] [place], [place] [address]Dr. Farhat Leal CO2 [Moles/Vol] 26.6 mmol/L Normal 21.0-32.0 [facility] Comment on above: Performed By: #### C CARA, PHOS ####[facility] Zhffxcvtho[address] [place], [place] [address]Dr. Farhat Leal Creatinine [Mass/Vol] 1.03 mg/dL Normal 0.70-1.30 [facility] Comment on above: Performed By: #### C CARA, PHOS ####[facility] Zgvyjcfgla[address] [place] [address]Dr. Farhat Leal EGFR-AF BURUNDIAN >60 Normal >=60 [facility] Comment on above: Performed By: #### C MP, PHOS ####[facility] Xosnwgxzwn[address] [place] [address]Dr. Farhat Leal EGFR-NON AF BURUNDIAN >60 Normal >=60 [facility] Comment on above: Performed By: #### C MP, PHOS ####[facility] Xrisbxcwcu8[address] [place] [address]Dr. Farhat Leal Globulin (S) [Mass/Vol] 3.7 g/dL Normal [facility] Comment on above: Performed By: #### C MP, PHOS ####[facility] Gfnwcmsyes67[address] [place] [address]Dr. Farhat Leal Glucose [Mass/Vol] 287 mg/dL Critically high 74-106 T [facility] Comment on above: Performed By: #### C MP, PHOS ####[facility] Xdghybkjbq[address] [place], [place] [address]Dr. Farhat Leal Potassium [Moles/Vol] 3.9 mmol/L Normal 3.5-5.1 [facility] Comment on above: Performed By: #### C CARA, PHOS ####[facility] Eaxhntmmem[address] [place], [place] [address]Dr. Farhat Leal Protein [Mass/Vol] 5.8 g/dL Critically low 6.4-8.2 [facility] Comment on above: Performed By: #### C CARA, PHOS ####[facility] Acyqqllfwl[address] [place], [place] [address]Dr. Farhat Leal Sodium [Moles/Vol] 132 mmol/L Critically low 136-145 [facility] Comment on above: Performed By: #### C MP, PHOS ####[facility] Bhvxljbhqq65[address] [place], [place] [address]Dr. Farhat Leal Urea nitrogen [Mass/Vol] 23.0 mg/dL Critically high 7.0-18.0 [facility] Comment on above: Performed By: #### C MP, PHOS ####[facility] Oznklaptpw[address] [place], [place] [address]Dr. Farhat Leal Urea nitrogen/Creatinine [Mass ratio] 22.3 mg/mg Normal [facility] Comment on above: Performed By: #### C MP, PHOS ####[facility] Nbkonrgjbo04[address] [place], [place] [address]Dr. Farhat Elvis FK506 (TACROLIMUS) WHOLE BLO ODon 12-07-2022 Tacrolimus (FK506), Blood 12.2 ng/mL Normal 2.0-20.0 [facility] Comment on above: Result Comment: Trou gh (immediately following transplant) 15.0 . Trough (steady state, 2 weeks or more after transplant): 3.0 - 8.0 . Performed by LC-MS/MS technology. Performed By: #### F K506T ####[facility] Sklfxtuper[address] [place] [phone]. Farhat Leal ACID FAST SMEAR AND CXon Acid Fast Culture Negative Normal [facility] Comment on above: Result Comment: No a abdiel fast bacilli isolated after 6 weeks. Performed By: #### A FB ####[facility] Kdeowneiaw26[address] [place] [phone]. Farhat Leal Acid Fast Smear Negative Normal [facility] Comment on above: Performed By: #### A FB ####[facility] Khqnjqbefy[address] [place] [address]Dr. Farhat Leal AF[employer] Specimen Processing Tissue Grinding Normal [facility] Comment on above: Performed By: #### A FB ####[facility] Hqfeyoqwaf8[address] [place] [phone]. Farhat Hassan 01-20-2022 [place]RAD[place] Telephone (KIMBERLY) ALEX ALMONTE ([id number]) 1945 M TRN Date Time Provider Department 01/20/22 VAN OLIVAREZ During your visit today, we recorded the following information about you: Van Olivarez APRN.DIAMANTE 01/20/2022 1:14 PM Signed Labs noted from yesterday. Pt is currently residing at [facility], I spoke with the Nurse, the results has been addressed by Physician caring for pt. He had been placed on Chlor Con and this has been discontinued and hyperkalemia has been treated. Van Olivarez APRN.SUPPLEMENTAL MANAGER Allergies As of Date: 01/20/2022 Noted Allergy Reaction PYRIDOSTIGMINE BROMIDE 08/04/2021 8 - GI Upset Date Reviewed: 01/15/2022 Reviewed by: Raquel Tai APRN.SUPPLEMENTAL MANAGER - Fully Assessed Reason for Visit: [...] by mouth daily with lunch. 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/2002 DIABETES UNCOMPL ADULT-UNCONTRLLED [ATR7084] 02/24/2002 KIDNEY TRANSPLANT STATUS [Z94.0] 09/07/2003 PROPHYLACTIC IMMUNOTHERAPY [Z29.8] 07/30/2006 CORRECTION STEROIDS [UXG8312] 07/30/2006 VITAMIN D DEFICIENCY NOS [E55.9] 09/07/2008 [...] diabetes mellitus with diabetic peripher*11/29/[address] [place] artery of extremity w*11/29/2021 Malnutrition of moderate degree (HCC) [E44.0] 12/01/2021 Dermatitis associated with moisture [L30.8] 12/04/2021 Encounter Status:Closed by VAN OLIVAREZ on 01/20/22 Normal [facility] Orders Onlyon 01-20-2022 Orders Only [id number] Alex Almonte 1945 M Date Provider Department Center 01/20/2022 Fidelina8-SUSIE HERNANDES [facility] No family history on file Normal [facility] PROF 14(COMP METB)on 022 Albumin [Mass/Vol] 1.9 g/dL Critically low 3.4-5.0 Th [facility] Comment on above: Performed By: #### C MP ####[facility] Y[address]jcjpxmya[address] [place] [address]Dr. Farhat Leal Albumin/Globulin [Mass ratio] 0.5 {ratio} Normal [facility] Comment on above: Performed By: #### C MP ####[facility] Lezehihrkn[address] [place] [address]Dr. Farhat Leal ALP [Catalytic activity/Vol] 78 U/L Normal 46-116 [facility] Comment on above: Performed By: #### C MP ####[facility] Cnnuearlmf8783 [place] [address]DrSkylar Leal ALT [Catalytic activity/Vol] 22 U/L Normal 16-63 [facility] Comment on above: Performed By: #### C MP ####[facility] Somulzsjev9[address] [place] [address]Dr. Farhat Leal Anion gap [Moles/Vol] 8.0 mmol/L Normal [facility] Comment on above: Performed By: #### C MP ####[facility] Hdiznzdysr49[address] [place] [phone]. Farhat Leal AST [Catalytic activity/Vol] 92 U/L Critically high 15-37 [facility] Comment on above: Performed By: #### C MP ####[facility] Rbxagbtbys6625 [place] [phone]. Farhat Leal Bilirubin [Mass/Vol] 0.7 mg/dL Normal 0.2-1.0 [facility] Comment on above: Performed By: #### C MP ####[facility] Ffqrvhzfdx9323 [place] [phone]. Farhat Leal Calcium [Mass/Vol] 7.8 mg/dL Critically low 8.5-10.1 Th e [facility] Comment on above: Performed By: #### C MP ####[facility] H[address]pnrqvdk[address] [place], [place] [address]Dr. Farhat Leal Chloride [Moles/Vol] 99 mmol/L Normal 98-107 [facility] Comment on above: Performed By: #### C MP ####[facility] Kohmjopnml[address] [place], [place] [address]Dr. Farhat Leal CO2 [Moles/Vol] 30.9 mmol/L Normal 21.0-32.0 [facility] Comment on above: Performed By: #### C MP ####[facility] Ceifwhuzdk[address] [place], [place] [address]Dr. Farhat Leal Creatinine [Mass/Vol] 0.95 mg/dL Normal 0.70-1.30 [facility] Comment on above: Performed By: #### C MP ####[facility] Ibszdczemw2548 [place] [phone]. Farhat Elvis EGFR-AF BURUNDIAN >60 Normal >=60 [facility] Comment on above: Performed By: #### C MP ####[facility] Tnlswuzqha0621 [place] [phone]. Farhat Elvis EGFR-NON AF BURUNDIAN >60 Normal >=60 [facility] Comment on above: Performed By: #### C MP ####[facility] Eaimcgbhab9949 [place] [phone]. Farhat Leal Globulin (S) [Mass/Vol] 3.9 g/dL Normal [facility] Comment on above: Performed By: #### C MP ####[facility] Oggecogbjp1767 [place] [phone]. Farhat Leal Glucose [Mass/Vol] 124 mg/dL Critically high 74-106 T [facility] Comment on above: Performed By: #### C MP ####[facility] Vyyzuqeted8037 [place] [address]Dr. Farhat Leal Potassium [Moles/Vol] 5.9 mmol/L Critically high 3.5-5.1 [facility] Comment on above: Performed By: #### C MP ####[facility] Mbvfcxdykt6253 [place] [address]Dr. Farhat Leal Protein [Mass/Vol] 5.8 g/dL Critically low 6.4-8.2 [facility] Comment on above: Performed By: #### C MP ####[facility] Icmxalthrl8047 [place] [address]Dr. Farhat Leal Sodium [Moles/Vol] 132 mmol/L Critically low 136-145 [facility] Comment on above: Performed By: #### C MP ####[facility] Zssohumdmx3799 [place] [address]Dr. Farhat Leal Urea nitrogen [Mass/Vol] 18.0 mg/dL Normal 7.0-18.0 [facility] Comment on above: Performed By: #### C MP ####[facility] Rupydgvhgz260[address] [place] [address]Dr. Farhat Leal Urea nitrogen/Creatinine [Mass ratio] 18.9 mg/mg Normal [facility] Comment on above: Performed By: #### C MP ####[facility] Dzwaouxlgx4[address] [place], [place] [address]Dr. Farhat Leal INR (POC)on 01-12-2022 INR Coag (PPP) [Relative time] 2.6 {INR} High 0.8 - 1.2 [facility] Internal Quality Check Acceptable Cl [facility] ACID FAST SMEAR AND CXon Acid Fast Culture Negative Normal [facility] Comment on above: Result Comment: No a abdiel fast bacilli isolated after 6 weeks. Performed By: #### A FB ####[facility] Qdswaybgsg0825 [place] [phone]. Farhat Leal Acid Fast Smear Negative Normal [facility] Comment on above: Performed By: #### A FB ####[facility] Myayzxwwsd[address] [place], [place] [address]Dr. Farhat Leal [employer] Specimen Processing Direct Inoculation [facility] Comment on above: Performed By: #### A FB ####[facility] Qomtpsoeya[address] [place], [place] [address]Dr. Farhat Leal ACID FAST SMEAR AND CXon Acid Fast Culture Negative [facility] Comment on above: Result Comment: No a abdiel fast bacilli isolated after 6 weeks. Performed By: #### A FB ####[facility] Iadyujfktg[address] [place], [place] [address]Dr. Farhat Leal Acid Fast Smear Negative Normal [facility] Comment on above: Performed By: #### A FB ####[facility] Avyqenrbql7[address] [place], [place] [address]Dr. Farhat Leal [employer] Specimen Processing Tissue Grinding [facility] Comment on above: Performed By: #### A FB ####[facility] Qxeciemzig8[address] [place], [place] [address]Dr. Farhat Leal FUNGAL CULTUREon 01-02-2022 Fungus (Mycology) Culture Final report Normal [facility] Comment on above: Performed By: #### C XFUN ####[facility] Ctmzzccmfe7[address] [place], [place] [address]Dr. Farhat Leal Fungus Stain Final report Normal [facility] Comment on above: Performed By: #### C XFUN ####[facility] Rkthagmwts[address] [place], [place] [address]Dr. Farhat Leal Result 1 Comment Normal [facility] Comment on above: Result Comment: ANNI/ Calcofluor preparation: no fungus observed. Performed By: #### C XFUN ####[facility] [address]ix[address] [place] [address]. Farhat Leal Result Comment: No y east or mold isolated after 4 weeks. FK506 (TACROLIMUS) WHOLE BLO ODon 12-31-2021 Tacrolimus (FK506), Blood 7.7 ng/mL Normal 2.0-20.0 [facility] Comment on above: Result Comment: Trou gh (immediately following transplant) 15.0 . Trough (steady state, 2 weeks or more after transplant): 3.0 - 8.0 . Performed by LC-MS/MS technology. Performed By: #### F K506T ####[facility] L[address]uewercj[address] [place] [address]. Farhat Leal HEMOGRAM AND PLATELon 2021 Hematocrit (Bld) [Volume fraction] 27.1 % Critically low 42.0-54.0 [facility] Comment on above: Performed By: #### H H ####[facility] Qhkdsymnty2[address] [place] [address]. Farhat Leal Hemoglobin (Bld) [Mass/Vol] 8.7 g/dL Critically low 14.0-18.0 [facility] Comment on above: Performed By: #### H H ####[facility] R[address]gbhkhrfw[address] [place] [address]. Farhat Leal MCH (RBC) [Entitic mass] 30.3 pg Normal 25.9-34.0 [facility] Comment on above: Performed By: #### H H ####[facility] Hqdhiwxeia[address] [place] [address]. Farhat Leal MCHC (RBC) [Mass/Vol] 32.1 g/dL Normal 29.9-35.2 [facility] Comment on above: Performed By: #### H H ####[facility] Fy[address]fjuc[address] [place] [address]. Farhat Leal MCV (RBC) [Entitic vol] 94.4 fL Critically high 80.0-94.0 [facility] Comment on above: Performed By: #### H H ####[facility] Elognvuyls5429 [place] [phone]. Farhat Leal PLT 355 103/ul Normal 150-450 [facility] Comment on above: Performed By: #### H H ####[facility] Vjwpkzlzou4497 [place] [address]Dr. Farhat Leal RBC 2.87 106/ul Critically low 4.70-6.10 [facility] Comment on above: Performed By: #### H H ####[facility] Cqhhzucbsv8369 [place] [address]Dr. Farhat Leal WBC 6.0 103/ul Normal 4.0-11.0 [facility] Comment on above: Performed By: #### H H ####[facility] Uqioxoiwro1416 [place] [address]Dr. Farhat Leal PHOSPHORUSon 12-29-2021 Phosphate [Mass/Vol] 2.5 mg/dL Critically low 2.6-4.7 [facility] Comment on above: Performed By: #### P HOS, CMP ####[facility] Ytknpyknfz[address] [place], [place] [address]Dr. Farhat Elvis PROF 14(COMP METB)on 022 Albumin [Mass/Vol] 1.7 g/dL Critically low 3.4-5.0 [facility] Comment on above: Performed By: #### P HOS, CMP ####[facility] Qlulmqsbbn0179 [place] [address]Dr. Farhat Leal Albumin/Globulin [Mass ratio] 0.5 {ratio} Normal [facility] Comment on above: Performed By: #### P HOS, CMP ####[facility] Trcbqhoypq9956 [place] [address]Dr. Farhat Leal ALP [Catalytic activity/Vol] 78 U/L Normal 46-116 [facility] Comment on above: Performed By: #### P HOS, CMP ####[facility] Wdbckfsqpt3730 [place] [address]Dr. Farhat Elvis ALT [Catalytic activity/Vol] 12 U/L Critically low 16-63 [facility] Comment on above: Performed By: #### P HOS, CMP ####[facility] Ahbonmzfup9640 [place] [phone]. Farhat Leal Anion gap [Moles/Vol] 5.1 mmol/L Normal [facility] Comment on above: Performed By: #### P HOS, CMP ####[facility] Tfhtjmpbqb9176 [place] [address]Dr. Farhat Leal AST [Catalytic activity/Vol] 22 U/L Normal 15-37 [facility] Comment on above: Performed By: #### P HOS, CMP ####[facility] Icvtsdnzgw[address] [place], [place] [address]Dr. Farhat Leal Bilirubin [Mass/Vol] 0.6 mg/dL Normal 0.2-1.0 [facility] Comment on above: Performed By: #### P HOS, CMP ####[facility] Hpvxmsekkk[address] [place], [place] [address]Dr. Farhat Leal Calcium [Mass/Vol] 8.1 mg/dL Critically low 8.5-10.1 [facility] Comment on above: Performed By: #### P HOS, CMP ####[facility] Ynzggmqvqt[address] [place], [place] [address]Dr. Farhat Leal Chloride [Moles/Vol] 100 mmol/L Normal 98-107 [facility] Comment on above: Performed By: #### P HOS, CMP ####[facility] Kreokrogfi94[address] [place], [place] [address]Dr. Farhat Leal CO2 [Moles/Vol] 34.2 mmol/L Critically high 21.0-32.0 [facility] Comment on above: Performed By: #### P HOS, CMP ####[facility] Heebroypxh[address] [place], [place] [address]Dr. Farhat Leal Creatinine [Mass/Vol] 0.92 mg/dL Normal 0.70-1.30 [facility] Comment on above: Performed By: #### P HOS, CMP ####[facility] Iartrxhbcu[address] [place], [place] [address]Dr. Farhat Leal EGFR-AF BURUNDIAN >60 Normal >=60 [facility] Comment on above: Performed By: #### P HOS, CMP ####[facility] Itidqfwrht4243 [place] [phone]. Farhat Leal EGFR-NON AF BURUNDIAN >60 Normal >=60 [facility] Comment on above: Performed By: #### P HOS, CMP ####[facility] Borqavlmkx2166 [place] [phone]. Farhat Leal Globulin (S) [Mass/Vol] 3.3 g/dL Normal [facility] Comment on above: Performed By: #### P HOS, CMP ####[facility] Estfbptuoi9470 [place] [address]Dr. Farhat Leal Glucose [Mass/Vol] 116 mg/dL Critically high 74-106 [facility] Comment on above: Performed By: #### P HOS, CMP ####[facility] Mcbouzsiql8837 [place] [address]Dr. Farhat Leal Potassium [Moles/Vol] 3.3 mmol/L Critically low 3.5-5.1 [facility] Comment on above: Performed By: #### P HOS, CMP ####[facility] Gdjfjsomxr32[address] [place], [place] [address]Dr. Farhat Leal Protein [Mass/Vol] 5.0 g/dL Critically low 6.4-8.2 [facility] Comment on above: Performed By: #### P HOS, CMP ####[facility] Nmsjdxxpdj5[address] [place], [place] [address]Dr. Farhat Leal Sodium [Moles/Vol] 136 mmol/L Normal 136-145 [facility] Comment on above: Performed By: #### P HOS, CMP ####[facility] Abauobzxwr2302 [place] [address]Dr. Farhat Leal Urea nitrogen [Mass/Vol] 14.0 mg/dL Normal 7.0-18.0 [facility] Comment on above: Performed By: #### P HOS, CMP ####[facility] Fvvbmdctrl7929 [place] [phone]. Farhat Leal Urea nitrogen/Creatinine [Mass ratio] 15.2 mg/mg Normal [facility] Comment on above: Performed By: #### P HOS, CMP ####[facility] Suyyyprmuo68[address] [place], [place] [address]Dr. Farhat Leal PROTIMEon 12-29-2021 INR Coag (PPP) [Relative time] 1.26 {INR} Normal [facility] Comment on above: Performed By: #### P T ####[facility] Ohtydsnhme[address] [place], [place] [address]Dr. Farhat Leal INR GUIDELINES SEE BELOW Normal [facility] Comment on above: Result Comment: MALINA RED INR: 2.0 - 3.0 CONDITIONS NOT LISTED BELOW 2.5 - 3.5 FOR PROSTHETIC HEART VALVE REPLACEMENT 2.5 - 3.5 RECURRENT THROMBOSIS Performed By: #### P T ####[facility] Rzrwxsbelh87[address] [place], [place] [address]Dr. Farhat Leal PT Coag (PPP) [Time] 13.4 s Critically high 9.0-11.6 [facility] Comment on above: Performed By: #### P T ####[facility] Lcluniuhwe7[address] [place], [place] [address]Dr. Farhat Leal XR MODIFIED BARIUM SWALLOWon 12-25-2021 XR MODIFIED BARIUM SWALLOW Normal [facility] FUNGAL CULTUREon 12-24-2021 Fungus (Mycology) Culture Final report Normal [facility] Comment on above: Performed By: #### C XFUN ####[facility] Dnuuanhyyw[address] [place], [place] [address]Dr. Farhat Leal Fungus Stain Final report Normal [facility] Comment on above: Performed By: #### C XFUN ####[facility] Xtnfwrjnjq2840[address] [place], [place] [address]Dr. Farhat Leal Result 1 Comment Normal [facility] Comment on above: Result Comment: ANNI/ Calcofluor preparation: no fungus observed. Performed By: #### C XFUN ####[facility] Epauwbzbhl[address] [place], [place] [address]DrSkylar Leal Result Comment: No y east or mold isolated after 4 weeks. VANCOMYCIN TROUGHon 12-21-19 VANCOMYCIN TROUGH 14.4 ug/ml Normal 5.0-20.0 [facility] Comment on above: Performed By: #### V ANCT ####[facility] Oxwsakhyre9372 [place] [address]Dr. Farhat Leal CBC AUTO DIFFon 12-14-2021 BASO # 0.0 103/ul Normal 0.0-0.1 [facility] Comment on above: Performed By: #### C BC ####[facility] Fqeldmvndc9[address] [place], [place] [address]Dr. Farhat Elvis Basophils/100 WBC (Bld) 0.2 % Normal 0.2-2.0 [facility] Comment on above: Performed By: #### C BC ####[facility] Uwzlszlpoe[address] [place], [place] [address]Dr. Farhat Leal EO # 0.2 103/ul Normal 0.0-0.7 [facility] Comment on above: Performed By: #### C BC ####[facility] [id number] [address] [place], [place] [address]Dr. Farhat Elvis Eosinophils/100 WBC (Bld) 2.1 % Normal 0.9-7.0 [facility] Comment on above: Performed By: #### C BC ####[facility] Rnjfqppkud[address] [place], [place] [address]Dr. Farhat Leal Erythrocyte distribution width (RBC) [Ratio] 18.2 % Critically high 11.0-15.0 [facility] Comment on above: Performed By: #### C BC ####[facility] Kpawivduii[address] [place], [place] [address]Dr. Farhat Leal Hematocrit (Bld) [Volume fraction] 25.8 % Critically low 42.0-54.0 The [facility] Comment on above: Performed By: #### C BC ####[facility] Tkottrxgnq5[address] [place], [place] [address]Dr. Farhat Leal Hemoglobin (Bld) [Mass/Vol] 8.0 g/dL Critically low 14.0-18.0 The [facility] Comment on above: Performed By: #### C BC ####[facility] Qwquvxbxju47[address] [place] [id number]. Farhat Leal IG # 0.08 10e3/ul Critically high 0.00-0.03 The [facility] Comment on above: Performed By: #### C BC ####[facility] Vofkuaxeft[address] [place] [address]Dr. Farhat Leal IG % 0.7 % Critically high 0.0-0.5 The [facility] Comment on above: Performed By: #### C BC ####[facility] Ebzijktcpx[address] [place] [address]Dr. Farhat Elvis LYMPH # 0.9 103/ul Critically low 1.2-3.8 [facility] Comment on above: Performed By: #### C BC ####[facility] Zbtlayfzyz3898 [place] [address]Dr. Farhat Elvis Lymphocytes/100 WBC (Bld) 8.7 % Critically low 20.5-60.0 The [facility] Comment on above: Performed By: #### C BC ####[facility] Vaxokcpavd37[address] [place] [address]Dr. Farhat Leal MANUAL DIFF REQ NO Normal [facility] Comment on above: Performed By: #### C BC ####[facility] Jvrokdveyh4[address] [place] [address]Dr. Farhat Leal MCH (RBC) [Entitic mass] 30.0 pg Normal 25.9-34.0 The [facility] Comment on above: Performed By: #### C BC ####[facility] Yhunvsvhzn6[address] [place], [place] [address]Dr. Farhat Leal MCHC (RBC) [Mass/Vol] 31.0 g/dL Normal 29.9-35.2 [facility] Comment on above: Performed By: #### C BC ####[facility] Fadatbshwp89[address] [place], [place] [address]DrSkylar Farhat Leal MCV (RBC) [Entitic vol] 96.6 fL Critically high 80.0-94.0 The [facility] Comment on above: Performed By: #### C BC ####[facility] Stmdhldbok30[address] [place] [id number]. Farhat Leal MONO # 0.7 103/ul Normal 0.3-0.8 The [facility] Comment on above: Performed By: #### C BC ####[facility] Jxocmpvler58[address] [place] [address]Dr. Farhat Leal Monocytes/100 WBC (Bld) 6.7 % Normal 1.7-12.0 The [facility] Comment on above: Performed By: #### C BC ####[facility] Jfxgbgdodj4[address] [place], [place] [address]Dr. Farhat Leal NEUT # 8.8 103/ul Critically high 1.4-6.5 The [facility] Comment on above: Performed By: #### C BC ####[facility] Inazpuiijn[address] [place], [place] [address]Dr. Frahat Leal Neutrophils/100 WBC (Bld) 81.6 % Critically high 43.0-75.0 The [facility] Comment on above: Performed By: #### C BC ####[facility] Mxobyddbjj[address] [place], [place] [address]Dr. Farhat Leal Platelet mean volume (Bld) [Entitic vol] 10.5 fL Normal 9.5-13.5 The [facility] Comment on above: Performed By: #### C BC ####[facility] Sephupqnql[address] [place], [place] [address]Dr. Farhat Leal PLT 285 103/ul Normal 150-450 The [facility] Comment on above: Performed By: #### C BC ####[facility] Sqtcuxzcwi32[address] [place], [place] [address]Dr. Farhat Leal RBC 2.67 106/ul Critically low 4.70-6.10 The [facility] Comment on above: Performed By: #### C BC ####[facility] Gtohamfmzg6694[address] [place], [place] [address]Dr. Farhat Leal WBC 10.7 103/ul Normal 4.0-11.0 The [facility] Comment on above: Performed By: #### C BC ####[facility] Fwkruyesht4034[address] [place], [place] [address]Dr. Farhat Leal PROF CHEM 8 (BAS METB)on Anion gap [Moles/Vol] 12.4 mmol/L Normal [facility] Comment on above: Performed By: #### B MP ####[facility] Ygvklnebtt69[address] [place] [address]Dr. Madelynlorri Elvis Calcium [Mass/Vol] 7.8 mg/dL Critically low 8.5-10.1 [facility] Comment on above: Performed By: #### B MP ####[facility] Vclxlywqvr5468 [place] [address]Dr. Farhat Leal Chloride [Moles/Vol] 102 mmol/L Normal 98-107 [facility] Comment on above: Performed By: #### B MP ####[facility] Rjilnapvut13[address] [place] [address]Dr. Farhat Leal CO2 [Moles/Vol] 28.1 mmol/L Normal 21.0-32.0 [facility] Comment on above: Performed By: #### B MP ####[facility] Ecldgoiheg[address] [place], [place] [address]Dr. Farhat Leal Creatinine [Mass/Vol] 1.24 mg/dL Normal 0.70-1.30 [facility] Comment on above: Performed By: #### B MP ####[facility] Ttxdehswwm4[address] [place], [place] [address]Dr. Farhat Leal EGFR-AF BURUNDIAN >60 Normal >=60 [facility] Comment on above: Performed By: #### B MP ####[facility] Pchjhvviem95[address] [place] [address]Dr. Farhat Leal EGFR-NON AF BURUNDIAN 57 mL/min/1.73m2 Critically low >=60 [facility] Comment on above: Performed By: #### B MP ####[facility] Ohaowejgdf2397[address] [place], [place] [address]Dr. Farhat Leal Glucose [Mass/Vol] 296 mg/dL Critically high 74-106 [facility] Comment on above: Performed By: #### B MP ####[facility] Bygpgrzpbi[address] [place], [place] [address]Dr. Farhat Leal Potassium [Moles/Vol] 3.5 mmol/L Normal 3.5-5.1 The [facility] Comment on above: Performed By: #### B MP ####[facility] Xgepwakksy[address] [place] [address]Dr. Farhat Leal Sodium [Moles/Vol] 139 mmol/L Normal 136-145 [facility] Comment on above: Performed By: #### B MP ####[facility] Btroowfyty1440 [place] [address]Dr. Farhat Leal Urea nitrogen [Mass/Vol] 27.0 mg/dL Critically high 7.0-18.0 [facility] Comment on above: Performed By: #### B MP ####[facility] Shckpbdvtb2333[address] [place], [place] [address]Dr. Farhat Leal Urea nitrogen/Creatinine [Mass ratio] 21.8 mg/mg Normal The [facility] Comment on above: Performed By: #### B MP ####[facility] Ptikcpdjaj4576[address] [place], [place] [address]Dr. Farhat Leal PROTIMEon 12-14-2021 INR Coag (PPP) [Relative time] 3.36 {INR} Normal [facility] Comment on above: Performed By: #### P T ####[facility] Drsgekhypw5634[address] [place], [place] [address]Dr. Farhat Leal INR GUIDELINES SEE BELOW Normal [facility] Comment on above: Result Comment: MALINA RED INR: 2.0 - 3.0 CONDITIONS NOT LISTED BELOW 2.5 - 3.5 FOR PROSTHETIC HEART VALVE REPLACEMENT 2.5 - 3.5 RECURRENT THROMBOSIS Performed By: #### P T ####[facility] Cbboxlqlia[address] [place], [place] [address]Dr. Farhat Leal PT Coag (PPP) [Time] 33.5 s Critically high 9.0-11.6 The [facility] Comment on above: Performed By: #### P T ####[facility] Byxaqrzoqf17[address] [place], [place] [address]Dr. Farhat Leal XR CHEST 1 Von 12-14-2021 XR CHEST 1 V Normal [facility] No Panel Informationon 12-01 BLANK _ [facility] Implant Date 04/22/2012 [facility] CHECKon AMS Duration (ms) 5 of 8 [facility] AMS Fallback Rate (bpm) DDIR [facility] AV Delay Adaptive Paced Minimum (ms) 300 ms [facility] AV Delay Adaptive Rate Maximum (bpm) 130 {beats}/min [facility] AV Delay Adaptive Rate Minimum (bpm) 70 {beats}/min [facility] AV Delay Adaptive Sensed Minimum (ms) 300 ms [facility] AV Delay Paced (ms) 300 ms [facility] AV Delay Sensed (ms) [address] [facility] Jaciel LV Pacing Polarity Unknown [facility] Jaciel LV Sensing Polarity Unknown [facility] Jaciel RA Pacing Amplitude (volts) 2.4 V [facility] Jaciel RA Pacing Polarity BI [facility] Jaciel RA Pacing Pulse Width (ms) 0.4 ms [facility] Jaciel RA Sensing Amplitude (mvolts) AUTO [facility] Jaciel RA Sensing Blanking Period (ms) 56 ms [facility] Jaciel RA Sensing Polarity BI [facility] Jaciel RA Sensing Refractory Period (ms) AUTO [facility] Jaciel RV Pacing Amplitude (volts) 3.4 V [facility] Jaciel RV Pacing Polarity BI [facility] Jaciel RV Pacing Pulse Width (ms) 0.4 ms [facility] Jaciel RV Sensing Amplitude (mvolts) AUTO [facility] Jaciel RV Sensing Blanking Period (ms) 30 ms [facility] Jaciel RV Sensing Polarity BI [facility] Jaciel RV Sensing Refractory Period (ms) 250 ms [facility] Hysteresis Rate (bpm) 60 {beats}/min [facility] Lead1 Mfg SUZETTE [facility] Lead2 Mfg SUZETTE [facility] Location RA [facility] Location RV [facility] Lower Rate (bpm) 60 {beats}/min [facility] Max Sensor Rate (bmp) 130 {beats}/min [facility] Model [id number] [facility] Model [id number] [facility] Model [id number] [facility] Pacemaker Dependent? NO [facility] PM-Device Mfg BIO [facility] PM-PMT Intervention ON [facility] PM-PVC Intervention ON [facility] PM-Rate Modulation Acceleration Reaction 4 s [facility] PM-Rate Modulation Deceleration 0.5 m [facility] PM-Rate Modulation [place] 23 [facility] PM-Rate Modulation Threshold Medium [facility] RA Bipolar Impedance ohms 448 ohm [facility] Rhythm AF with controlled ventricular rate. [facility] RV Bipolar Impedance ohms 390 ohm [facility] Serial Number [id number] [facility] Serial Number [id number] [facility] Serial Number [id number] [facility] Thresh RA Sensing Amplitude (mvolts) 2.4 mV [facility] Thresh RV Capture Amplitude (volts) 1.8 V [facility] Thresh RV Capture Duration (ms) 0.4 ms [facility] Thresh RV Sensing Amplitude (mvolts) 2.4 mV [facility] Tracking Rate (bpm) 160 {beats}/min [facility] BNPon 11-28-2021 Natriuretic peptide B (Bld) [Mass/Vol] 95289.0 pg/mL Critically high <=1,800.0 [facility] Comment on above: Performed By: #### C MP, BNP, CRP ####[facility] Ypheazunfj3265[address] [place], [place] [address]Dr. Farhat Leal CBC AUTO DIFFon 11-28-2021 BASO # 0.0 103/ul Normal 0.0-0.1 [facility] Comment on above: Performed By: #### C BC ####[facility] Ytjmydsdav7940[address] [place], [place] [address]Dr. Farhat Leal Basophils/100 WBC (Bld) 0.3 % Normal 0.2-2.0 The [facility] Comment on above: Performed By: #### C BC ####[facility] Kzupkraqdx4860[address] [place], [place] [address]Dr. Farhat Leal EO # 0.1 103/ul Normal 0.0-0.7 [facility] Comment on above: Performed By: #### C BC ####[facility] Pbspeoseze1725[address] [place], [place] [address]Dr. Farhat Leal Eosinophils/100 WBC (Bld) 1.0 % Normal 0.9-7.0 [facility] Comment on above: Performed By: #### C BC ####[facility] Nqwxesdqhv044[address] [place], [place] [address]DrSkylar Leal Erythrocyte distribution width (RBC) [Ratio] 14.0 % Normal 11.0-15.0 [facility] Comment on above: Performed By: #### C BC ####[facility] Dajoeihphf[address] [place] [address]DrSkylar Leal Hematocrit (Bld) [Volume fraction] 27.6 % Critically low 42.0-54.0 [facility] Comment on above: Performed By: #### C BC ####[facility] Mhfwiwkvbe5676[address] [place], [place] [address]DrSkylar Leal Hemoglobin (Bld) [Mass/Vol] 9.0 g/dL Critically low 14.0-18.0 [facility] Comment on above: Performed By: #### C BC ####[facility] Qbonsopmaz7670[address] [place], [place] [address]DrSkylar Leal IG # 0.12 10e3/ul Critically high 0.00-0.03 [facility] Comment on above: Performed By: #### C BC ####[facility] Yfbzyfmkjx808[address] [place], [place] [address]DrSkylar Leal IG % 1.0 % Critically high 0.0-0.5 [facility] Comment on above: Performed By: #### C BC ####[facility] Pgfkgcintj4525[address] [place], [place] [address]DrSkylar Leal LYMPH # 1.2 103/ul Normal 1.2-3.8 [facility] Comment on above: Performed By: #### C BC ####[facility] Iimggpddhr0057[address] [place], [place] [address]DrSkylar Leal Lymphocytes/100 WBC (Bld) 9.9 % Critically low 20.5-60.0 The [facility] Comment on above: Performed By: #### C BC ####[facility] Vbxatnpjgn7945[address] [place], [place] [address]DrSkylar Leal MANUAL DIFF REQ NO Normal [facility] Comment on above: Performed By: #### C BC ####[facility] Dfnvaxzomm1510[address] [place], [place] [address]DrSkylar Leal MCH (RBC) [Entitic mass] 30.0 pg Normal 25.9-34.0 [facility] Comment on above: Performed By: #### C BC ####[facility] Aszfsydfpk[address] [place] [address]Dr. Farhat Leal MCHC (RBC) [Mass/Vol] 32.6 g/dL Normal 29.9-35.2 The [facility] Comment on above: Performed By: #### C BC ####[facility] Nflosjqvad61[address] [place], [place] [address]Dr. Farhat Leal MCV (RBC) [Entitic vol] 92.0 fL Normal 80.0-94.0 The [facility] Comment on above: Performed By: #### C BC ####[facility] Lzpctsapns[address] [place], [place] [address]DrSkylar Leal MONO # 1.1 103/ul Critically high 0.3-0.8 [facility] Comment on above: Performed By: #### C BC ####[facility] Qzeowpezay2947[address] [place], [place] [address]Dr. Farhat Leal Monocytes/100 WBC (Bld) 9.3 % Normal 1.7-12.0 The [facility] Comment on above: Performed By: #### C BC ####[facility] Vapsrnbxvd5096[address] [place], [place] [address]DrSkylar Leal NEUT # 9.3 103/ul Critically high 1.4-6.5 [facility] Comment on above: Performed By: #### C BC ####[facility] Smegpdcvoq568[address] [place], [place] [address]Dr. Farhat Leal Neutrophils/100 WBC (Bld) 78.5 % Critically high 43.0-75.0 The [facility] Comment on above: Performed By: #### C BC ####[facility] Esybepvwrv65[address] [place], [place] [address]DrSkylar Leal Platelet mean volume (Bld) [Entitic vol] 9.6 fL Normal 9.5-13.5 [facility] Comment on above: Performed By: #### C BC ####[facility] Fzrqctvavu[address] [place], [place] [address]Dr. Farhat Leal PLT 357 103/ul Normal 150-450 [facility] Comment on above: Performed By: #### C BC ####[facility] Zydfhrjxov7992 [place] [address]Dr. Farhat Leal RBC 3.00 106/ul Critically low 4.70-6.10 [facility] Comment on above: Performed By: #### C BC ####[facility] Ajwgwdpzss8402 [place] [address]Dr. Farhat Leal WBC 11.8 103/ul Critically high 4.0-11.0 [facility] Comment on above: Performed By: #### C BC ####[facility] Hqmtdfrbla81[address] [place] [address]Dr. Farhat Leal CRPon 11-28-2021 CRP 20.9 mg/dL Critically high <=1.0 [facility] Comment on above: Performed By: #### C MP, BNP, CRP ####[facility] Fsvmacgkyd9376 [place] [address]Dr. Farhat Leal CULTURE OTHERon 11-28-2021 CULTURE OTHER Normal [facility] Comment on above: Performed By: #### O THCX ####[facility] Qpdiadwdiy7[address] [place], [place] [address]Dr. Farhat Leal CULTURE OTHER Normal [facility] Comment on above: Performed By: #### O THCX ####[facility] Vguhwduxio8417[address] [place], [place] [address]Dr. Farhat Elvis PROF 14(COMP METB)on 022 Albumin [Mass/Vol] 1.4 g/dL Critically low 3.4-5.0 [facility] Comment on above: Performed By: #### C MP, BNP, CRP ####[facility] Hxrrgupqum80[address] [place] [address]Dr. Farhat Leal Albumin/Globulin [Mass ratio] 0.4 {ratio} Normal [facility] Comment on above: Performed By: #### C MP, BNP, CRP ####[facility] Qaoxipdpjz1742 [place] [address]Dr. Farhat Leal ALP [Catalytic activity/Vol] 82 U/L Normal 46-116 [facility] Comment on above: Performed By: #### C MP, BNP, CRP ####[facility] Bfbkcayijk64[address] [place] [address]Dr. Farhat Leal ALT [Catalytic activity/Vol] 20 U/L Normal 16-63 [facility] Comment on above: Performed By: #### C MP, BNP, CRP ####[facility] Obynjqdowp7726 [place] [address]Dr. Farhat Leal Anion gap [Moles/Vol] 13.0 mmol/L Normal [facility] Comment on above: Performed By: #### C MP, BNP, CRP ####[facility] Iszjbddpnh2571 [place] [address]Dr. Farhat Leal AST [Catalytic activity/Vol] 33 U/L Normal 15-37 [facility] Comment on above: Performed By: #### C MP, BNP, CRP ####[facility] Nomzzcyyaj4061 [place] [address]Dr. Farhat Leal Bilirubin [Mass/Vol] 0.7 mg/dL Normal 0.2-1.0 [facility] Comment on above: Performed By: #### C MP, BNP, CRP ####[facility] Lzoieppbsu40[address] [place] [address]Dr. Farhat Leal Calcium [Mass/Vol] 8.4 mg/dL Critically low 8.5-10.1 [facility] Comment on above: Performed By: #### C MP, BNP, CRP ####[facility] Bvdsktagrm30[address] [place] [address]Dr. Farhat Leal Chloride [Moles/Vol] 100 mmol/L Normal 98-107 The [facility] Comment on above: Performed By: #### C MP, BNP, CRP ####[facility] Ztfmtlurlp9385 [place] [address]Dr. Farhat Leal CO2 [Moles/Vol] 23.7 mmol/L Normal 21.0-32.0 [facility] Comment on above: Performed By: #### C MP, BNP, CRP ####[facility] Koqgxdlyrv3065 [place] [address]Dr. Farhat Elvis Creatinine [Mass/Vol] 1.70 mg/dL Critically high 0.70-1.30 [facility] Comment on above: Performed By: #### C MP, BNP, CRP ####[facility] Opnzbjmrnq47[address] [place], [place] [address]Dr. Farhat Elvis EGFR-AF BURUNDIAN 48 mL/min/1.73m2 Critically low >=60 [facility] Comment on above: Performed By: #### C MP, BNP, CRP ####[facility] Xqxbivzhav82[address] [place], [place] [address]Dr. Madelynlorri Elvis EGFR-NON AF BURUNDIAN 39 mL/min/1.73m2 Critically low >=60 [facility] Comment on above: Performed By: #### C MP, BNP, CRP ####[facility] Ycfywukxkg9267[address] [place], [place] [address]Dr. Farhat Leal Globulin (S) [Mass/Vol] 3.6 g/dL Normal [facility] Comment on above: Performed By: #### C MP, BNP, CRP ####[facility] Afttgxuiyu290[address] [place], [place] [address]Dr. Farhat Leal Glucose [Mass/Vol] 232 mg/dL Critically high 74-106 [facility] Comment on above: Performed By: #### C MP, BNP, CRP ####[facility] Tuylpzrzzm08[address] [place], [place] [address]Dr. Farhat Leal Potassium [Moles/Vol] 3.7 mmol/L Normal 3.5-5.1 [facility] Comment on above: Performed By: #### C MP, BNP, CRP ####[facility] Lnbhalwnmh1162[address] [place], [place] [address]Dr. Farhat Leal Protein [Mass/Vol] 5.0 g/dL Critically low 6.4-8.2 [facility] Comment on above: Performed By: #### C MP, BNP, CRP ####[facility] Fubiggubik2256[address] [place], [place] [address]Dr. Farhat Leal Sodium [Moles/Vol] 133 mmol/L Critically low 136-145 Th e [facility] Comment on above: Performed By: #### C MP, BNP, CRP ####[facility] Yqsrbhpoby8572 [place] [id number]. Farhat Leal Urea nitrogen [Mass/Vol] 52.0 mg/dL Critically high 7.0-18.0 [facility] Comment on above: Performed By: #### C MP, BNP, CRP ####[facility] Kbthusjdqw1333 [place] [address]Dr. Farhat Leal Urea nitrogen/Creatinine [Mass ratio] 30.6 mg/mg Normal [facility] Comment on above: Performed By: #### C MP, BNP, CRP ####[facility] Lhdzbrvzpd9071 [place] [address]Dr. Farhat Leal PROTIMEon 11-28-2021 INR Coag (PPP) [Relative time] 1.29 {INR} Normal [facility] Comment on above: Performed By: #### P T ####[facility] Qxgifhfmgd693[address] [place], [place] [address]Dr. Farhta Leal INR GUIDELINES SEE BELOW Normal [facility] Comment on above: Result Comment: MALINA RED INR: 2.0 - 3.0 CONDITIONS NOT LISTED BELOW 2.5 - 3.5 FOR PROSTHETIC HEART VALVE REPLACEMENT 2.5 - 3.5 RECURRENT THROMBOSIS Performed By: #### P T ####[facility] Fphczfajfg30[address] [place], [place] [address]Dr. Farhat Leal PT Coag (PPP) [Time] 13.7 s Critically high 9.0-11.6 [facility] Comment on above: Performed By: #### P T ####[facility] Clujhkosxt[address] [place] [address]DrSkylar Leal [facility] SED RATE 77 mm/hr Critically high <=20 [facility] Comment on above: Performed By: #### S EDR ####[facility] Zkkvdfffzn8[address] [place], [place] [address]DrSkylar Leal XR CHEST 2 Von 11-28-2021 XR CHEST 2 V Normal [facility] BNPon 11-27-2021 Natriuretic peptide B (Bld) [Mass/Vol] 42902.0 pg/mL Critically high <=1,800.0 The [facility] Comment on above: Performed By: #### B HEALTH SCIENCE SPECIALIST, CMP, CRP ####[facility] Uyiqgrnxmf22[address] [place] [address]Dr. Farhat Leal CBC AUTO DIFFon 11-27-2021 BASO # 0.0 103/ul Normal 0.0-0.1 [facility] [facility] Comment on above: Performed By: #### C BC ####[facility] Qdrgwgqhoe[address] [place], [place] [address]Dr. Farhat Leal Basophils/100 WBC (Bld) 0.2 % Normal 0.2-2.0 [facility] Comment on above: Performed By: #### C BC ####[facility] Waxypuxget[address] [place], [place] [address]Dr. Farhat Leal EO # 0.2 103/ul Normal 0.0-0.7 [facility] Comment on above: Performed By: #### C BC ####[facility] Npcerjwecx9[address] [place], [place] [address]Dr. Farhat Leal Eosinophils/100 WBC (Bld) 1.9 % Normal 0.9-7.0 The [facility] Comment on above: Performed By: #### C BC ####[facility] Orximwaqqc[address] [place], [place] [address]Dr. Farhat Leal Erythrocyte distribution width (RBC) [Ratio] 13.9 % Normal 11.0-15.0 The [facility] Comment on above: Performed By: #### C BC ####[facility] Vzscmhgdsi[address] [place], [place] [address]Dr. Farhat Leal Hematocrit (Bld) [Volume fraction] 28.7 % Critically low 42.0-54.0 The [facility] Comment on above: Performed By: #### C BC ####[facility] Jzfsshsbtf[address] [place], [place] [address]Dr. Farhat Leal Hemoglobin (Bld) [Mass/Vol] 9.3 g/dL Critically low 14.0-18.0 [facility] Comment on above: Performed By: #### C BC ####[facility] [address]dtcsg[address] [place] [address]Dr. Farhat Leal IG # 0.14 10e3/ul Critically high 0.00-0.03 [facility] Comment on above: Performed By: #### C BC ####[facility] Faokcqdubt14[address] [place] [address]Dr. Farhat Leal IG % 1.2 % Critically high 0.0-0.5 [facility] Comment on above: Performed By: #### C BC ####[facility] Mrlijqoaob34[address] [place] [address]DrSkylar Leal LYMPH # 1.1 103/ul Critically low 1.2-3.8 [facility] Comment on above: Performed By: #### C BC ####[facility] Iukofsaeiw9042 [place] [address]DrSkylar Leal Lymphocytes/100 WBC (Bld) 9.4 % Critically low 20.5-60.0 [facility] Comment on above: Performed By: #### C BC ####[facility] Hbkmjspzhj3106 [place] [address]DrSkylar Leal MANUAL DIFF REQ NO Normal [facility] Comment on above: Performed By: #### C BC ####[facility] Icurpebqve2892 [place] [address]DrSkylar Leal MCH (RBC) [Entitic mass] 29.7 pg Normal 25.9-34.0 [facility] Comment on above: Performed By: #### C BC ####[facility] Kgsnucijga8911 [place] [id number] Leal MCHC (RBC) [Mass/Vol] 32.4 g/dL Normal 29.9-35.2 [facility] Comment on above: Performed By: #### C BC ####[facility] Znizppeawq3496 [place] [id number] Leal MCV (RBC) [Entitic vol] 91.7 fL Normal 80.0-94.0 [facility] Comment on above: Performed By: #### C BC ####[facility] Fqzumeogrz4550 [place] [address]DrSkylar Farhat Elvis MONO # 1.1 103/ul Critically high 0.3-0.8 [facility] Comment on above: Performed By: #### C BC ####[facility] Tnjmfmzzff99[address] [place] [address]Dr. Farhat Leal Monocytes/100 WBC (Bld) 9.7 % Normal 1.7-12.0 The [facility] Comment on above: Performed By: #### C BC ####[facility] Vtsdduxnpf7[address] [place] [address]Dr. Madelynlorri Elvis NEUT # 9.2 103/ul Critically high 1.4-6.5 [facility] Comment on above: Performed By: #### C BC ####[facility] Rxzsuvbbrh[address] [place], [place] [address]Dr. Farhat Leal Neutrophils/100 WBC (Bld) 77.6 % Critically high 43.0-75.0 The [facility] Comment on above: Performed By: #### C BC ####[facility] Pjfaeptfrj[address] [place], [place] [address]Dr. Madelynlorri Leal Platelet mean volume (Bld) [Entitic vol] 9.5 fL Normal 9.5-13.5 The [facility] Comment on above: Performed By: #### C BC ####[facility] Wczehtktrm9[address] [place] [address]Dr. Farhat Leal PLT 375 103/ul Normal 150-450 [facility] Comment on above: Performed By: #### C BC ####[facility] Ksypmnowje5343 [place] [id number] Leal RBC 3.13 106/ul Critically low 4.70-6.10 [facility] Comment on above: Performed By: #### C BC ####[facility] Vwbjoweidh2552 [place] [phone] Leal WBC 11.8 103/ul Critically high 4.0-11.0 [facility] Comment on above: Performed By: #### C BC ####[facility] Iqumauoahg54[address] [place] [address]Dr. Madelynlorri Elvis CRPon 11-27-2021 CRP 24.5 mg/dL Critically high <=1.0 [facility] Comment on above: Performed By: #### B HEALTH SCIENCE SPECIALIST, CMP, CRP ####[facility] Tdlbviwwfk24[address] [place] [address]Dr. Madelynlorri Leal CULTURE OTHERon 11-27-2021 CULTURE OTHER Normal [facility] Comment on above: Performed By: #### O THCX ####[facility] Enwinuslaa7[address] [place] [address]Dr. Farhat Leal CULTURE OTHER Normal [facility] Comment on above: Performed By: #### O THCX ####[facility] Yexkttnsha7026 [place] [address]Dr. Farhat Leal CULTURE WOUNDon 11-27-2021 CULTURE WOUND Normal [facility] Comment on above: Performed By: #### W OUNDCX ####[facility] Esqnjtsecs03[address] [place] [address]Dr. Farhat Leal POINT OF CARE GLUCOSEon 11-15 Glucose [Mass/Vol] 147 mg/dL Critically high 74-106 [facility] Comment on above: Performed By: #### P OCGLUC ####[facility] Ylhlvbvjhz[address] [place] [address]Dr. Farhat Leal PROF 14(COMP METB)on 022 Albumin [Mass/Vol] 1.4 g/dL Critically low 3.4-5.0 [facility] Comment on above: Performed By: #### B HEALTH SCIENCE SPECIALIST, CMP, CRP ####[facility] Iqhaazykby9[address] [place] [address]Dr. Farhat Leal Albumin/Globulin [Mass ratio] 0.4 {ratio} [facility] Comment on above: Performed By: #### B HEALTH SCIENCE SPECIALIST, CMP, CRP ####[facility] Sdiiwuddcv0196 [place] [address]Dr. Farhat Leal ALP [Catalytic activity/Vol] 82 U/L Normal 46-116 [facility] Comment on above: Performed By: #### B HEALTH SCIENCE SPECIALIST, CMP, CRP ####[facility] Hwfqfmwkav7893 [place] [address]Dr. Farhat Leal ALT [Catalytic activity/Vol] 22 U/L Normal 16-63 [facility] Comment on above: Performed By: #### B HEALTH SCIENCE SPECIALIST, CMP, CRP ####[facility] Remkfctwbz[address] [place] [address]Dr. Farhat Leal Anion gap [Moles/Vol] 14.2 mmol/L Normal [facility] Comment on above: Performed By: #### B HEALTH SCIENCE SPECIALIST, CMP, CRP ####[facility] Hgluwonibb9[address] [place], [place] [address]Dr. Farhat Leal AST [Catalytic activity/Vol] 35 U/L Normal 15-37 [facility] Comment on above: Performed By: #### B HEALTH SCIENCE SPECIALIST, CMP, CRP ####[facility] Ypbrdlcafz[address] [place], [place] [address]Dr. Farhat Leal Bilirubin [Mass/Vol] 0.7 mg/dL Normal 0.2-1.0 [facility] Comment on above: Performed By: #### B HEALTH SCIENCE SPECIALIST, CMP, CRP ####[facility] Bkrubhdled69[address] [place], [place] [address]Dr. Farhat Leal Calcium [Mass/Vol] 8.2 mg/dL Critically low 8.5-10.1 [facility] Comment on above: Performed By: #### B HEALTH SCIENCE SPECIALIST, CMP, CRP ####[facility] Xlpltxekuv4433 [place] [address]Dr. Farhat Leal Chloride [Moles/Vol] 99 mmol/L Normal 98-107 The [facility] Comment on above: Performed By: #### B HEALTH SCIENCE SPECIALIST, CMP, CRP ####[facility] Zidevizevi6187 [place] [address]Dr. Farhat Leal CO2 [Moles/Vol] 22.6 mmol/L Normal 21.0-32.0 [facility] Comment on above: Performed By: #### B HEALTH SCIENCE SPECIALIST, CMP, CRP ####[facility] Ynsimvxfus3972 [place] [address]Dr. Farhat Leal Creatinine [Mass/Vol] 1.73 mg/dL Critically high 0.70-1.30 [facility] Comment on above: Performed By: #### B HEALTH SCIENCE SPECIALIST, CMP, CRP ####[facility] Pmaaekopee[address] [place] [address]Dr. Farhat Elvis EGFR-AF BURUNDIAN 47 mL/min/1.73m2 Critically low >=60 [facility] Comment on above: Performed By: #### B HEALTH SCIENCE SPECIALIST, CMP, CRP ####[facility] Veakejzlgu[address] [place], [place] [address]Dr. Madelynlorri Elvis EGFR-NON AF BURUNDIAN 38 mL/min/1.73m2 Critically low >=60 [facility] Comment on above: Performed By: #### B HEALTH SCIENCE SPECIALIST, CMP, CRP ####[facility] Pveoeykeus1613[address] [place], [place] [address]Dr. Farhat Leal Globulin (S) [Mass/Vol] 3.7 g/dL Normal [facility] Comment on above: Performed By: #### B HEALTH SCIENCE SPECIALIST, CMP, CRP ####[facility] Fcyhhoawjg5[address] [place], [place] [address]Dr. Farhat Leal Glucose [Mass/Vol] 220 mg/dL Critically high 74-106 T [facility] Comment on above: Performed By: #### B HEALTH SCIENCE SPECIALIST, CMP, CRP ####[facility] Fyfxwdbmzc2347[address] [place], [place] [address]Dr. Madelynlorri Elvis Potassium [Moles/Vol] 3.8 mmol/L Normal 3.5-5.1 [facility] Comment on above: Performed By: #### B HEALTH SCIENCE SPECIALIST, CMP, CRP ####[facility] Rmvgnrzrbp4816[address] [place], [place] [address]Dr. Madelynlorri Elvis Protein [Mass/Vol] 5.1 g/dL Critically low 6.4-8.2 [facility] Comment on above: Performed By: #### B HEALTH SCIENCE SPECIALIST, CMP, CRP ####[facility] Unxiuocpug5[address] [place], [place] [address]Dr. Farhat Leal Sodium [Moles/Vol] 132 mmol/L Critically low 136-145 Th e [facility] Comment on above: Performed By: #### B HEALTH SCIENCE SPECIALIST, CMP, CRP ####[facility] Mhhgmuynlx5613 [place] [address]Dr. Farhat Leal Urea nitrogen [Mass/Vol] 49.0 mg/dL Critically high 7.0-18.0 [facility] Comment on above: Performed By: #### B HEALTH SCIENCE SPECIALIST, CMP, CRP ####[facility] Rhryamgsud8395[address] [place], [place] [address]Dr. Farhat Leal Urea nitrogen/Creatinine [Mass ratio] 28.3 mg/mg Normal [facility] Comment on above: Performed By: #### B HEALTH SCIENCE SPECIALIST, CMP, CRP ####[facility] Ehaqknitsv6[address] [place], [place] [address]Dr. Farhat Leal PROTIMEon 11-27-2021 INR Coag (PPP) [Relative time] 1.25 {INR} Normal [facility] Comment on above: Performed By: #### P T ####[facility] Jnikachqal16[address] [place], [place] [address]Dr. Farhat Leal INR GUIDELINES SEE BELOW Normal [facility] Comment on above: Result Comment: MALINA RED INR: 2.0 - 3.0 CONDITIONS NOT LISTED BELOW 2.5 - 3.5 FOR PROSTHETIC HEART VALVE REPLACEMENT 2.5 - 3.5 RECURRENT THROMBOSIS Performed By: #### P T ####[facility] Ekbxyqvnvl5786[address] [place], [place] [address]Dr. Farhat Leal PT Coag (PPP) [Time] 13.3 s Critically high 9.0-11.6 [facility] Comment on above: Performed By: #### P T ####[facility] Bzvvgsyimq9[address] [place], [place] [address]Dr. Farhat Leal SED RATE WESTERGRENon 2021 SED RATE 60 mm/hr Critically high <=20 [facility] Comment on above: Performed By: #### S EDR ####[facility] Gzkxpxpgqv9801[address] [place], [place] [address]Dr. Farhat Leal VANCOMYCIN TROUGHon 10-13-20 22 VANCOMYCIN TROUGH 21.2 ug/ml Critically high 5.0-20.0 Th e [facility] Comment on above: Performed By: #### V ANCT ####[facility] Lwcqjdtvvs17[address] [place], [place] [address]Dr. Farhat Leal XR CHEST 1 Von 11-27-2021 XR CHEST 1 V Normal [facility] BNPon 11-26-2021 Natriuretic peptide B (Bld) [Mass/Vol] 16166.0 pg/mL Critically high <=1,800.0 The [facility] Comment on above: Performed By: #### B HEALTH SCIENCE SPECIALIST, CRP, CMP ####[facility] Ysufzvfmwd[address] [place], [place] [address]Dr. Farhat Leal CBC AUTO DIFFon 11-26-2021 BASO # 0.0 103/ul Normal 0.0-0.1 [facility] Comment on above: Performed By: #### C BC ####[facility] Oeyqizhnau1725[address] [place], [place] [address]Dr. Farhat Leal Basophils/100 WBC (Bld) 0.2 % Normal 0.2-2.0 [facility] Comment on above: Performed By: #### C BC ####[facility] Pqkzamslue88[address] [place], [place] [address]DrSkylar Leal EO # 0.0 103/ul Normal 0.0-0.7 [facility] Comment on above: Performed By: #### C BC ####[facility] Hscfipdojq2854[address] [place], [place] [address]DrSkylar Leal Eosinophils/100 WBC (Bld) 0.3 % Critically low 0.9-7.0 [facility] Comment on above: Performed By: #### C BC ####[facility] Luuedoynwy6153[address] [place], [place] [address]DrSkylar Leal Erythrocyte distribution width (RBC) [Ratio] 13.9 % Normal 11.0-15.0 [facility] Comment on above: Performed By: #### C BC ####[facility] Bugofkqvfe4913[address] [place], [place] [address]DrSkylar Leal Hematocrit (Bld) [Volume fraction] 27.3 % Critically low 42.0-54.0 [facility] Comment on above: Performed By: #### C BC ####[facility] Llibcbdavf9128 [place] [address]DrSkylar Leal Hemoglobin (Bld) [Mass/Vol] 8.8 g/dL Critically low 14.0-18.0 [facility] Comment on above: Performed By: #### C BC ####[facility] Nfxkhecemw071[address] [place], [place] [address]DrSkylar Leal IG # 0.17 10e3/ul Critically high 0.00-0.03 [facility] Comment on above: Performed By: #### C BC ####[facility] Wejypjmzoe[address] [place], [place] [address]DrSkylar Leal IG % 1.2 % Critically high 0.0-0.5 [facility] Comment on above: Performed By: #### C BC ####[facility] Tvpusfwzur47[address] [place], [place] [address]DrSkylar Leal LYMPH # 0.7 103/ul Critically low 1.2-3.8 [facility] Comment on above: Performed By: #### C BC ####[facility] Eluylojuge9837[address] [place], [place] [address]DrSkylar Leal Lymphocytes/100 WBC (Bld) 4.8 % Critically low 20.5-60.0 [facility] Comment on above: Performed By: #### C BC ####[facility] Begtccuelc4897[address] [place], [place] [address]DrSkylar Leal MANUAL DIFF REQ NO Normal [facility] Comment on above: Performed By: #### C BC ####[facility] Mkvtvcropk6824[address] [place], [place] [address]DrSkylar Leal MCH (RBC) [Entitic mass] 29.9 pg Normal 25.9-34.0 [facility] Comment on above: Performed By: #### C BC ####[facility] Qrqbmytgmv9136[address] [place], [place] [address]DrSkylar Leal MCHC (RBC) [Mass/Vol] 32.2 g/dL Normal 29.9-35.2 [facility] Comment on above: Performed By: #### C BC ####[facility] Kqubuzfwzm2273 [place] [address]DrSkylar Leal MCV (RBC) [Entitic vol] 92.9 fL Normal 80.0-94.0 The [facility] Comment on above: Performed By: #### C BC ####[facility] Geibqxwytd8[address] [place], [place] [address]DrSkylar Leal MONO # 1.3 103/ul Critically high 0.3-0.8 The [facility] Comment on above: Performed By: #### C BC ####[facility] Qmsazgfqty2116[address] [place], [place] [address]DrSkylar Leal Monocytes/100 WBC (Bld) 9.6 % Normal 1.7-12.0 [facility] Comment on above: Performed By: #### C BC ####[facility] Lwhhgxsobq1613[address] [place], [place] [address]DrSkylar Leal NEUT # 11.4 103/ul Critically high 1.4-6.5 [facility] Comment on above: Performed By: #### C BC ####[facility] Rhdsgxnwbg8022[address] [place], [place] [address]DrSkylar Leal Neutrophils/100 WBC (Bld) 83.9 % Critically high 43.0-75.0 [facility] Comment on above: Performed By: #### C BC ####[facility] Zvzdcukdvr[address] [place], [place] [address]DrSkylar Leal Platelet mean volume (Bld) [Entitic vol] 9.6 fL Normal 9.5-13.5 [facility] Comment on above: Performed By: #### C BC ####[facility] Bqubgyllxm7[address] [place], [place] [address]DrSkylar Leal PLT 395 103/ul Normal 150-450 [facility] Comment on above: Performed By: #### C BC ####[facility] Mfjvsttboe[address] [place], [place] [address]DrSkylar Leal RBC 2.94 106/ul Critically low 4.70-6.10 [facility] Comment on above: Performed By: #### C BC ####[facility] Eixpfsakrn7140 [place] [address]Dr. Farhat Leal WBC 13.6 103/ul Critically high 4.0-11.0 [facility] Comment on above: Performed By: #### C BC ####[facility] Gdzqmznglk6003 [place] [address]Dr. Farhat Leal CRPon 11-26-2021 CRP [Mass/Vol] mg/L Critically high <=1.[address] [facility] Comment on above: Performed By: #### B HEALTH SCIENCE SPECIALIST, CRP, CMP ####[facility] Enhwgitvox9084[address] [place], [place] [address]Dr. Farhat Leal PROF 14(COMP METB)on 022 Albumin [Mass/Vol] 1.5 g/dL Critically low 3.4-5.0 [facility] Comment on above: Performed By: #### B HEALTH SCIENCE SPECIALIST, CRP, CMP ####[facility] Luxidhhiyq0592 [place] [address]Dr. Farhat Leal Albumin/Globulin [Mass ratio] 0.4 {ratio} Normal [facility] Comment on above: Performed By: #### B HEALTH SCIENCE SPECIALIST, CRP, CMP ####[facility] Ixgqyhluky0206 [place] [address]Dr. Farhat Leal ALP [Catalytic activity/Vol] 88 U/L Normal 46-116 [facility] Comment on above: Performed By: #### B HEALTH SCIENCE SPECIALIST, CRP, CMP ####[facility] Dltlogmhyl0145 [place] [address]Dr. Farhat Leal ALT [Catalytic activity/Vol] 29 U/L Normal 16-63 [facility] Comment on above: Performed By: #### B HEALTH SCIENCE SPECIALIST, CRP, CMP ####[facility] Bmxbddtgik2566 [place] [address]Dr. Farhat Leal Anion gap [Moles/Vol] 13.3 mmol/L Normal [facility] Comment on above: Performed By: #### B HEALTH SCIENCE SPECIALIST, CRP, CMP ####[facility] Juzwcoqznn8246 [place] [address]Dr. Farhat Leal AST [Catalytic activity/Vol] 32 U/L Normal 15-37 The [facility] Comment on above: Performed By: #### B HEALTH SCIENCE SPECIALIST, CRP, CMP ####[facility] Jwcratdlwr9954 [place] [address]Dr. Farhat Leal Bilirubin [Mass/Vol] 0.6 mg/dL Normal 0.2-1.0 [facility] Comment on above: Performed By: #### B HEALTH SCIENCE SPECIALIST, CRP, CMP ####[facility] Nfezswlcms6463 [place] [address]Dr. Farhat Leal Calcium [Mass/Vol] 8.0 mg/dL Critically low 8.5-10.1 [facility] Comment on above: Performed By: #### B HEALTH SCIENCE SPECIALIST, CRP, CMP ####[facility] Egrwkrqpei1227[address] [place], [place] [address]Dr. Farhat Leal Chloride [Moles/Vol] 98 mmol/L Normal 98-107 [facility] Comment on above: Performed By: #### B HEALTH SCIENCE SPECIALIST, CRP, CMP ####[facility] Noinmiyiry[address] [place], [place] [address]Dr. Farhat Leal CO2 [Moles/Vol] 23.7 mmol/L Normal 21.0-32.0 [facility] Comment on above: Performed By: #### B HEALTH SCIENCE SPECIALIST, CRP, CMP ####[facility] Bwtbswxpkx0094 [place] [address]Dr. Farhat Leal Creatinine [Mass/Vol] 2.08 mg/dL Critically high 0.70-1.30 [facility] Comment on above: Performed By: #### B HEALTH SCIENCE SPECIALIST, CRP, CMP ####[facility] Tbuewcszvn[address]14[address] [place], [place] [address]Dr. Farhat Leal EGFR-AF BURUNDIAN 38 mL/min/1.73m2 Critically low >=60 The [facility] Comment on above: Performed By: #### B HEALTH SCIENCE SPECIALIST, CRP, CMP ####[facility] Khagrgixry[address] [place], [place] [address]Dr. Farhat Leal EGFR-NON AF BURUNDIAN 31 mL/min/1.73m2 Critically low >=60 [facility] Comment on above: Performed By: #### B HEALTH SCIENCE SPECIALIST, CRP, CMP ####[facility] Bhurltgcnk1738 [place] [address]Dr. Farhat Leal Globulin (S) [Mass/Vol] 3.7 g/dL Normal [facility] Comment on above: Performed By: #### B HEALTH SCIENCE SPECIALIST, CRP, CMP ####[facility] Hzlzuevsot5423 [place] [address]Dr. Farhat Leal Glucose [Mass/Vol] 315 mg/dL Critically high 74-106 T [facility] Comment on above: Performed By: #### B HEALTH SCIENCE SPECIALIST, CRP, CMP ####[facility] Qbiwdgzloe5[address] [place], [place] [address]Dr. Farhat Leal Potassium [Moles/Vol] 4.0 mmol/L Normal 3.5-5.1 [facility] Comment on above: Performed By: #### B HEALTH SCIENCE SPECIALIST, CRP, CMP ####[facility] Srimagwhrw[address] [place], [place] [address]Dr. Farhat Leal Protein [Mass/Vol] 5.2 g/dL Critically low 6.4-8.2 [facility] Comment on above: Performed By: #### B HEALTH SCIENCE SPECIALIST, CRP, CMP ####[facility] Hvttonskoj[address] [place], [place] [address]Dr. Farhat Leal Sodium [Moles/Vol] 131 mmol/L Critically low 136-145 [facility] Comment on above: Performed By: #### B HEALTH SCIENCE SPECIALIST, CRP, CMP ####[facility] Rkdfbfadot125[address] [place], [place] [address]Dr. Farhat Leal Urea nitrogen [Mass/Vol] 50.0 mg/dL Critically high 7.0-18.0 [facility] Comment on above: Performed By: #### B HEALTH SCIENCE SPECIALIST, CRP, CMP ####[facility] Kcvltenlql[address] [place], [place] [address]Dr. Farhat Leal Urea nitrogen/Creatinine [Mass ratio] 24.0 mg/mg Normal [facility] Comment on above: Performed By: #### B HEALTH SCIENCE SPECIALIST, CRP, CMP ####[facility] Sbbrdwwzhn4089 [place] [address]Dr. Farhat Leal PROTIMEon 11-26-2021 INR Coag (PPP) [Relative time] 1.31 {INR} Normal [facility] Comment on above: Performed By: #### P T ####[facility] [address] [place] [address]Dr. Farhat Leal INR GUIDELINES SEE BELOW Normal [facility] Comment on above: Result Comment: MALINA RED INR: 2.0 - 3.0 CONDITIONS NOT LISTED BELOW 2.5 - 3.5 FOR PROSTHETIC HEART VALVE REPLACEMENT 2.5 - 3.5 RECURRENT THROMBOSIS Performed By: #### P T ####[facility] Xrrwxxzovf[address] [place], [place] [address]Dr. Farhat Leal PT Coag (PPP) [Time] 13.9 s Critically high 9.0-11.6 [facility] Comment on above: Performed By: #### P T ####[facility] Zkivvuggxu[address] [place], [place] [address]Dr. Farhat Leal SED RATE CAROGA LAKEERGREN 2021 SED RATE 87 mm/hr Critically high <=20 [facility] Comment on above: Performed By: #### S EDR ####[facility] Adoiqtclfa[address] [place], [place] [address]Dr. Farhat Leal BNPon 11-25-2021 Natriuretic peptide B (Bld) [Mass/Vol] 08173.0 pg/mL Critically high <=1,800.0 [facility] Comment on above: Performed By: #### C MP, BNP, CRP ####[facility] Duminoryik[address] [place], [place] [address]Dr. Farhat Leal CBC AUTO DIFFon 11-25-2021 BASO # 0.0 103/ul Normal 0.0-0.1 [facility] Comment on above: Performed By: #### C BC ####[facility] Itkkcfugzc9738[address] [place], [place] [address]Dr. Farhat Leal Basophils/100 WBC (Bld) 0.4 % Normal 0.2-2.0 [facility] Comment on above: Performed By: #### C BC ####[facility] Kgcpcmpltw52[address] [place] [phone]. Farhat Leal EO # 0.1 103/ul Normal 0.0-0.7 [facility] Comment on above: Performed By: #### C BC ####[facility] Owivtprjnx4244 [place] [id number]. Farhat Leal Eosinophils/100 WBC (Bld) 1.2 % Normal 0.9-7.0 [facility] Comment on above: Performed By: #### C BC ####[facility] Ahbqroluon[address] [place] [address]Dr. Farhat Leal Erythrocyte distribution width (RBC) [Ratio] 13.7 % Normal 11.0-15.0 [facility] Comment on above: Performed By: #### C BC ####[facility] Wichavykle[address] [place], [place] [address]Dr. Farhat Leal Hematocrit (Bld) [Volume fraction] 29.6 % Critically low 42.0-54.0 [facility] Comment on above: Performed By: #### C BC ####[facility] Sokewkrshy13[address] [place], [place] [address]Dr. Farhat Leal Hemoglobin (Bld) [Mass/Vol] 9.3 g/dL Critically low 14.0-18.0 [facility] Comment on above: Performed By: #### C BC ####[facility] Rafyvmcowk27[address] [place], [place] [address]Dr. Farhat Leal IG # 0.15 10e3/ul Critically high 0.00-0.03 [facility] Comment on above: Performed By: #### C BC ####[facility] Vniquzyqhi[address] [place], [place] [address]Dr. Farhat Leal IG % 1.4 % Critically high 0.0-0.5 [facility] Comment on above: Performed By: #### C BC ####[facility] Zypvjbqbaf[address] [place], [place] [address]DrSkylar Leal LYMPH # 0.8 103/ul Critically low 1.2-3.8 [facility] Comment on above: Performed By: #### C BC ####[facility] Gogdzymqus[address] [place] [address]Dr. Farhat Leal Lymphocytes/100 WBC (Bld) 7.3 % Critically low 20.5-60.0 [facility] Comment on above: Performed By: #### C BC ####[facility] Rroiwjzqux[address] [place] [address]Dr. Farhat Leal MANUAL DIFF REQ NO Normal [facility] Comment on above: Performed By: #### C BC ####[facility] Gtvblqodsi29[address] [place] [address]Dr. Farhat Leal MCH (RBC) [Entitic mass] 29.3 pg Normal 25.9-34.0 [facility] Comment on above: Performed By: #### C BC ####[facility] Xxwvpkdbkg1242[address] [place], [place] [address]Dr. Farhat Leal MCHC (RBC) [Mass/Vol] 31.4 g/dL Normal 29.9-35.2 [facility] Comment on above: Performed By: #### C BC ####[facility] Psfoknupmg260[address] [place], [place] [address]Dr. Farhat Leal MCV (RBC) [Entitic vol] 93.4 fL Normal 80.0-94.0 [facility] Comment on above: Performed By: #### C BC ####[facility] Ghljyyirkk[address] [place] [address]Dr. Farhat Leal MONO # 1.3 103/ul Critically high 0.3-0.8 [facility] Comment on above: Performed By: #### C BC ####[facility] Ycrwundenq5375 [place] [address]Dr. Farhat Leal Monocytes/100 WBC (Bld) 12.3 % Critically high 1.7-12.0 [facility] Comment on above: Performed By: #### C BC ####[facility] Nactbdhwhc24[address] [place] [address]Dr. Farhat Leal NEUT # 8.4 103/ul Critically high 1.4-6.5 [facility] Comment on above: Performed By: #### C BC ####[facility] Abmyxxokwa[address] [place] [address]Dr. Farhat Leal Neutrophils/100 WBC (Bld) 77.4 % Critically high 43.0-75.0 [facility] Comment on above: Performed By: #### C BC ####[facility] Tplduixbtx46[address] [place] [address]Dr. Farhat Leal Platelet mean volume (Bld) [Entitic vol] 9.8 fL Normal 9.5-13.5 [facility] Comment on above: Performed By: #### C BC ####[facility] Aksdkdkvtk7[address] [place] [address]Dr. Farhat Leal PLT 390 103/ul Normal 150-450 [facility] Comment on above: Performed By: #### C BC ####[facility] Dmndcflrha7[address] [place], [place] [address]Dr. Farhat Leal RBC 3.17 106/ul Critically low 4.70-6.10 [facility] Comment on above: Performed By: #### C BC ####[facility] Qkbsrdplkx65[address] [place], [place] [address]Dr. Farhat Leal WBC 10.9 103/ul Normal 4.0-11.0 [facility] Comment on above: Performed By: #### C BC ####[facility] Wosfuortkb[address] [place], [place] [address]Dr. Farhat Leal CRPon 11-25-2021 CRP 27.2 mg/dL Critically high <=1.0 [facility] Comment on above: Performed By: #### C MP, BNP, CRP ####[facility] Alxicloetl[address] [place] [address]Dr. Farhat Leal PROF 14(COMP METB)on 022 Albumin [Mass/Vol] 1.5 g/dL Critically low 3.4-5.0 [facility] Comment on above: Performed By: #### C MP, BNP, CRP ####[facility] Pahbitdsyq47[address] [place] [address]Dr. Farhat Leal Albumin/Globulin [Mass ratio] 0.4 {ratio} Normal [facility] Comment on above: Performed By: #### C MP, BNP, CRP ####[facility] Sethteplho5875 [place] [address]Dr. Farhat Leal ALP [Catalytic activity/Vol] 86 U/L Normal 46-116 [facility] Comment on above: Performed By: #### C MP, BNP, CRP ####[facility] Plyfrwctca8897 [place] [address]Dr. Madelynlorri Leal ALT [Catalytic activity/Vol] 34 U/L Normal 16-63 [facility] Comment on above: Performed By: #### C MP, BNP, CRP ####[facility] Inluhiyyjl4474[address] [place], [place] [address]Dr. Farhat Leal Anion gap [Moles/Vol] 17.8 mmol/L Normal [facility] Comment on above: Performed By: #### C MP, BNP, CRP ####[facility] Dqiakzrmbb9150[address] [place], [place] [address]Dr. Madelynlorri Leal AST [Catalytic activity/Vol] 48 U/L Critically high 15-37 [facility] Comment on above: Performed By: #### C MP, BNP, CRP ####[facility] Nabjdxxymz5226[address] [place], [place] [address]Dr. Madelynlorri Leal Bilirubin [Mass/Vol] 0.8 mg/dL Normal 0.2-1.0 [facility] Comment on above: Performed By: #### C MP, BNP, CRP ####[facility] Zwepzbovon495[address] [place], [place] [address]Dr. Farhat Leal Calcium [Mass/Vol] 8.3 mg/dL Critically low 8.5-10.1 [facility] Comment on above: Performed By: #### C MP, BNP, CRP ####[facility] Tolpbrhasb0745[address] [place], [place] [address]Dr. Farhat Leal Chloride [Moles/Vol] 97 mmol/L Critically low 98-107 [facility] Comment on above: Performed By: #### C MP, BNP, CRP ####[facility] Wooldrogpx[address] [place] [address]Dr. Farhat Leal CO2 [Moles/Vol] 23.0 mmol/L Normal 21.0-32.0 [facility] Comment on above: Performed By: #### C MP, BNP, CRP ####[facility] Lnnkbryoad7[address] [place] [address]Dr. Farhat Leal Creatinine [Mass/Vol] 1.68 mg/dL Critically high 0.70-1.30 [facility] Comment on above: Performed By: #### C MP, BNP, CRP ####[facility] Vbehysnuyv7[address] [place], [place] [address]Dr. Farhat Leal EGFR-AF BURUNDIAN 48 mL/min/1.73m2 Critically low >=60 [facility] Comment on above: Performed By: #### C MP, BNP, CRP ####[facility] Bocknxbkvm[address] [place], [place] [address]Dr. Farhat Leal EGFR-NON AF BURUNDIAN 40 mL/min/1.73m2 Critically low >=60 [facility] Comment on above: Performed By: #### C MP, BNP, CRP ####[facility] Lmzwahhies[address] [place], [place] [address]Dr. Farhat Leal Globulin (S) [Mass/Vol] 3.9 g/dL Normal [facility] Comment on above: Performed By: #### C MP, BNP, CRP ####[facility] Zipwpfdjfi7977[address] [place], [place] [address]Dr. Farhat Leal Glucose [Mass/Vol] 282 mg/dL Critically high 74-106 [facility] Comment on above: Performed By: #### C MP, BNP, CRP ####[facility] Gkgpmobwtb4258[address] [place], [place] [address]Dr. Farhat Leal Potassium [Moles/Vol] 4.8 mmol/L Normal 3.5-5.1 [facility] Comment on above: Performed By: #### C MP, BNP, CRP ####[facility] Ubfredrhrx[address] [place], [place] [address]Dr. Farhat Leal Protein [Mass/Vol] 5.4 g/dL Critically low 6.4-8.2 [facility] Comment on above: Performed By: #### C MP, BNP, CRP ####[facility] Elawoemkdd[address] [place] [address]Dr. Farhat Leal Sodium [Moles/Vol] 133 mmol/L Critically low 136-145 [facility] Comment on above: Performed By: #### C MP, BNP, CRP ####[facility] Unsvmaathk9760 [place] [address]Dr. Farhat Leal Urea nitrogen [Mass/Vol] 40.0 mg/dL Critically high 7.0-18.0 [facility] Comment on above: Performed By: #### C MP, BNP, CRP ####[facility] Dwqkhrpuep89[address] [place] [address]Dr. Farhat Leal Urea nitrogen/Creatinine [Mass ratio] 23.8 mg/mg Normal [facility] Comment on above: Performed By: #### C MP, BNP, CRP ####[facility] Yxprrwlyde8823[address] [place], [place] [address]Dr. Farhat Leal PROTIMEon 11-25-2021 INR Coag (PPP) [Relative time] 1.48 {INR} Normal [facility] Comment on above: Performed By: #### P T ####[facility] Eldmnasvtt8102[address] [place], [place] [address]Dr. Farhat Leal INR GUIDELINES SEE BELOW Normal [facility] Comment on above: Result Comment: MALINA RED INR: 2.0 - 3.0 CONDITIONS NOT LISTED BELOW 2.5 - 3.5 FOR PROSTHETIC HEART VALVE REPLACEMENT 2.5 - 3.5 RECURRENT THROMBOSIS Performed By: #### P T ####[facility] Vuioxykwts9406[address] [place], [place] [address]Dr. Farhat Leal PT Coag (PPP) [Time] 15.6 s Critically high 9.0-11.6 [facility] Comment on above: Performed By: #### P T ####[facility] Ofttaloqkl2857[address] [place], [place] [address]Dr. Farhat Leal SED RATE WESTERGRENon 2021 SED RATE 76 mm/hr Critically high <=20 [facility] Comment on above: Performed By: #### S EDR ####[facility] Xlfznsehgp8684[address] [place], [place] [address]Dr. Farhat Leal BNPon 11-24-2021 Natriuretic peptide B (Bld) [Mass/Vol] 79615.0 pg/mL Critically high <=1,800.0 [facility] Comment on above: Performed By: #### B HEALTH SCIENCE SPECIALIST, CMP, CRP ####[facility] Dnawwwbosk097[address] [place], [place] [address]Dr. aFrhat Leal CBC AUTO DIFFon 11-24-2021 BASO # 0.0 103/ul Normal 0.0-0.1 [facility] Comment on above: Performed By: #### C BC ####[facility] Wttfftgfrm1825[address] [place], [place] [address]Dr. Farhat Leal Basophils/100 WBC (Bld) 0.3 % Normal 0.2-2.0 [facility] Comment on above: Performed By: #### C BC ####[facility] Nbjepojabu[address] [place], [place] [address]Dr. Farhat Leal EO # 0.2 103/ul Normal 0.0-0.7 [facility] Comment on above: Performed By: #### C BC ####[facility] Uonzkttlkh32[address] [place], [place] [address]Dr. Farhat Leal Eosinophils/100 WBC (Bld) 1.2 % Normal 0.9-7.0 [facility] Comment on above: Performed By: #### C BC ####[facility] Tcyqlkneut8340[address] [place], [place] [address]Dr. Farhat Leal Erythrocyte distribution width (RBC) [Ratio] 13.5 % Normal 11.0-15.0 [facility] Comment on above: Performed By: #### C BC ####[facility] Gueevuffxc6[address] [place], [place] [address]Dr. Farhat Leal Hematocrit (Bld) [Volume fraction] 31.1 % Critically low 42.0-54.0 [facility] Comment on above: Performed By: #### C BC ####[facility] Jdhsypxlmm8[address] [place] [id number]. Farhat Leal Hemoglobin (Bld) [Mass/Vol] 10.0 g/dL Critically low 14.0-18.0 [facility] Comment on above: Performed By: #### C BC ####[facility] Lqyybjwgjr6238 [place] [id number]. Farhat Leal IG # 0.13 10e3/ul Critically high 0.00-0.03 [facility] Comment on above: Performed By: #### C BC ####[facility] Yavyhlhxts1158 [place] [id number]. Farhat Leal IG % 1.0 % Critically high 0.0-0.5 [facility] Comment on above: Performed By: #### C BC ####[facility] Daiwpflykx5960 [place] [address]DrSkylar Farhat Leal LYMPH # 0.7 103/ul Critically low 1.2-3.8 [facility] Comment on above: Performed By: #### C BC ####[facility] Fxtzjbygsh59[address] [place] [address]Dr. Farhat Leal Lymphocytes/100 WBC (Bld) 4.9 % Critically low 20.5-60.0 [facility] Comment on above: Performed By: #### C BC ####[facility] Ofhwqrklbe1357 [place] [address]Dr. Farhat Leal MANUAL DIFF REQ NO Normal [facility] Comment on above: Performed By: #### C BC ####[facility] Twxxvtimui0337 [place] [phone]. Farhat Leal MCH (RBC) [Entitic mass] 29.6 pg Normal 25.9-34.0 [facility] Comment on above: Performed By: #### C BC ####[facility] Rrlvnoyagf2326 [place] [phone]. Farhat Leal MCHC (RBC) [Mass/Vol] 32.2 g/dL Normal 29.9-35.2 [facility] Comment on above: Performed By: #### C BC ####[facility] Mrbeuycxyp[address] [place] [phone]. Farhat Leal MCV (RBC) [Entitic vol] 92.0 fL Normal 80.0-94.0 [facility] Comment on above: Performed By: #### C BC ####[facility] Dnkjftruqm2705 [place] [id number] Farhat Leal MONO # 1.3 103/ul Critically high 0.3-0.8 [facility] Comment on above: Performed By: #### C BC ####[facility] Drlkrldlyq9847 [place] [phone]. Farhat Elvis Monocytes/100 WBC (Bld) 9.6 % Normal 1.7-12.0 [facility] Comment on above: Performed By: #### C BC ####[facility] Sjegkfjnsm6[address] [place], [place] [address]Dr. Farhat Leal NEUT # 11.2 103/ul Critically high 1.4-6.5 [facility] Comment on above: Performed By: #### C BC ####[facility] Xmivxlxdzx5354 [place] [phone]. Farhat Elvis Neutrophils/100 WBC (Bld) 83.0 % Critically high 43.0-75.0 [facility] Comment on above: Performed By: #### C BC ####[facility] Gwdtulqvnz9978 [place] [phone]. Farhat Elvis Platelet mean volume (Bld) [Entitic vol] 9.5 fL Normal 9.5-13.5 [facility] Comment on above: Performed By: #### C BC ####[facility] Xvmszwpmvk7015 [place] [phone]. Farhat Elvis PLT 395 103/ul Normal 150-450 [facility] Comment on above: Performed By: #### C BC ####[facility] Sndfdmkezg4150 [place] [phone] Leal RBC 3.38 106/ul Critically low 4.70-6.10 [facility] Comment on above: Performed By: #### C BC ####[facility] Ttzfjnahvx7015 [place], [place] [address]Wb. Farhat Leal WBC 13.4 103/ul Critically high 4.0-11.0 [facility] Comment on above: Performed By: #### C BC ####[facility] Wtihrridrx4806 [place], [place] [address]Ks. Farhat Leal CRPon 11-24-2021 CRP 27.8 mg/dL Critically high <=1.0 [facility] Comment on above: Performed By: #### B HEALTH SCIENCE SPECIALIST, CMP, CRP ####[facility] Agemqnaktb4147 [place], [place] [address]Hy. Farhat Leal CULTURE ANAEROBICon 11-25-19 22 CULTURE ANAEROBIC Culture Observations : NO GROWTH OF ANAEROBES AT 72 HOURS. [facility] Comment on above: Performed By: #### A NACX ####[facility] Wlpurtcwfl4914 [place] [phone]. Farhat Leal CULTURE ANAEROBIC Culture Observations : NO GROWTH OF ANAEROBES AT 72 HOURS. [facility] Comment on above: Performed By: #### A NACX ####[facility] Unbnmnoyqi2835 [place] [phone]. Farhat Leal CULTURE ANAEROBIC Culture Observations : No growth of anaerobes at 72 hours. [facility] Comment on above: Performed By: #### A NACX ####[facility] Tycgmzfekc3616 [place] [phone]. Farhat Leal CULTURE ANAEROBIC Culture Observations : No growth of anaerobes at 72 hours. [facility] Comment on above: Performed By: #### A NACX ####[facility] Cizmbgitbt7300 [place] [phone]. Farhat Leal CULTURE URINEon 11-24-2021 CULTURE URINE Culture Observations : NO GROWTH. [facility] Comment on above: Performed By: #### U RCX ####[facility] Ktjubdsnqb3408 [place] [phone]. Farhat Leal ECHOCARDIO M/2D COMPLETEon 1 0-10-2022 ECHOCARDIO M/2D COMPLETE Normal [facility] ER URINE PROFILEon 2 Bilirubin Ql (U) Negative Normal NEGATIVE [facility] Comment on above: Performed By: #### E RUR ####[facility] Uglvhejxgo6[address] [place], [place] [address]Dr. Farhat Leal Clarity (U) CLEAR Normal CLEAR [facility] Comment on above: Performed By: #### E RUR ####[facility] Zefkruskju220[address] [place], [place] [address]Dr. Farhat Leal Color (U) YELLOW Normal YELLOW [facility] Comment on above: Performed By: #### E RUR ####[facility] Brzltnqwuk7448[address] [place], [place] [address]Dr. Farhat Leal ERUAHD A micrscopic examination will be performed if indicated. Normal [facility] Comment on above: Performed By: #### E RUR ####[facility] Uidbsaoxhy1950[address] [place], [place] [address]Dr. Farhat Leal Glucose Ql (U) Negative Normal NEGATIVE [facility] Comment on above: Performed By: #### E RUR ####[facility] Iaeoheignu0200[address] [place], [place] [address]Dr. Farhat Leal Hemoglobin Ql (U) Negative Normal NEGATIVE [facility] Comment on above: Performed By: #### E RUR ####[facility] Ekcvuysxcb7064[address] [place], [place] [address]Dr. Farhat Leal Ketones Ql (U) TRACE Abnormal NEGATIVE [facility] Comment on above: Performed By: #### E RUR ####[facility] Sthlscpqhz746[address] [place], [place] [address]Dr. Farhat Leal LEUKOCYTES Negative Normal NEGATIVE [facility] Comment on above: Performed By: #### E RUR ####[facility] Nouqbvcrjt0486[address] [place], [place] [address]Dr. Farhat Leal Nitrite Ql (U) Negative Normal NEGATIVE [facility] Comment on above: Performed By: #### E RUR ####[facility] Ojpsewktxw039[address] [place], [place] [address]DrSkylar Leal pH (U) 5.5 [pH] Normal 5-9 [facility] Comment on above: Performed By: #### E RUR ####[facility] Bxfqkevcqf8852[address] [place], [place] [address]Dr. Farhat Leal SPEC GRAVITY 1.015 Normal 1.005-<=1.02 5 [facility] Comment on above: Performed By: #### E RUR ####[facility] Gnktbzozny394[address] [place], [place] [address]Dr. Farhat Lael UA PROTEIN Negative Normal NEGATIVE/ TRACE [facility] Comment on above: Performed By: #### E RUR ####[facility] Pydienkfon47[address] [place], [place] [address]Dr. Farhat Leal UR MICRO IND NOT INDICATED Normal [facility] Comment on above: Performed By: #### E RUR ####[facility] Enazwpcljn8724[address] [place], [place] [address]Dr. Farhat Leal Urobilinogen Qn (U) 0.2 {Boyd'U}/dL Normal 0.2 - 1. 0 [facility] Comment on above: Performed By: #### E RUR ####[facility] Xqtpyifwfp55[address] [place], [place] [address]Dr. Farhat Leal GRAM STAINon 11-24-2021 DIPHTHEROIDS Normal [facility] Comment on above: Performed By: #### G STAIN ####[facility] Vidajhvhwc[address] [place], [place] [address]Dr. Farhat Leal EPITHELIALS Normal [facility] Comment on above: Performed By: #### G STAIN ####[facility] Ewdsdmgaeh01[address] [place], [place] [address]Dr. Farhat Leal FUNGAL ELEMENTS Normal [facility] Comment on above: Performed By: #### G STAIN ####[facility] Precjjvfbk34[address] [place], [place] [address]Dr. Farhat Leal GRAM NEG BACILLI Normal [facility] Comment on above: Performed By: #### G STAIN ####[facility] Jkkmkzhvwc[address] [place], [place] [address]Dr. Farhat Leal GRAM NEG DIPPLOCOCCI Normal [facility] Comment on above: Performed By: #### G STAIN ####[facility] - [place] Okoznvggkn[address] [place] [address]Dr. Farhat Leal GRAM POS BACILLI Normal [facility] Comment on above: Performed By: #### G STAIN ####[facility] Gytovcduaq67[address] [place] [address]Dr. Farhat Leal GRAM POSITIVE COCCI FEW Normal [facility] Comment on above: Performed By: #### G STAIN ####[facility] Vqlzvyjnms[address] [place], [place] [address]Dr. Farhat Leal GRAM STAIN SOURCE RT ACHILLES TENDON Normal [facility] Comment on above: Performed By: #### G STAIN ####[facility] Qgaxhrszgd[address] [place], [place] [address]Dr. Farhat Leal GS_DIPTH Normal [facility] Comment on above: Performed By: #### G STAIN ####[facility] Qwbijnnnpx35[address] [place], [place] [address]Dr. Farhat Leal WBC RARE Normal [facility] Comment on above: Performed By: #### G STAIN ####[facility] Atwyemqdyh84[address] [place], [place] [address]Dr. Farhat Leal COMMENTS NO ORGANISMS OBSERVED Normal [facility] Comment on above: Performed By: #### G STAIN ####[facility] Pqfwmbacou[address] [place], [place] [address]Dr. Farhat Leal DIPHTHEROIDS Normal [facility] Comment on above: Performed By: #### G STAIN ####[facility] Ahtsyczrnb[address] [place] [address]Dr. Farhat Leal EPITHELIALS Normal [facility] Comment on above: Performed By: #### G STAIN ####[facility] Uaauzpvmah46[address] [place], [place] [address]Dr. Farhat Leal FUNGAL ELEMENTS Normal [facility] Comment on above: Performed By: #### G STAIN ####[facility] Wbhpabuoge[address] [place], [place] [address]Dr. Farhat Leal GRAM NEG BACILLI Normal [facility] Comment on above: Performed By: #### G STAIN ####[facility] Tgnpsxbdht23[address] [place] [id number]. Farhat Leal GRAM NEG DIPPLOCOCCI Normal [facility] Comment on above: Performed By: #### G STAIN ####[facility] Txqojoxgxi8140 [place] [id number]. Farhat Leal GRAM POS BACILLI Normal [facility] Comment on above: Performed By: #### G STAIN ####[facility] Hlrabsgmzd85[address] [place] [address]Dr. Farhat Leal GRAM POSITIVE COCCI Normal [facility] Comment on above: Performed By: #### G STAIN ####[facility] Ddrkiknawn04[address] [place] [address]Dr. Farhat Leal GRAM STAIN SOURCE RT CALCANEOUS Normal [facility] Comment on above: Performed By: #### G STAIN ####[facility] Amkujzweze4[address] [place], [place] [address]Dr. Farhat Leal GS_DIPTH Normal [facility] Comment on above: Performed By: #### G STAIN ####[facility] Ibkzvwtyre[address] [place] [address]Dr. Farhat Leal WBC RARE Normal [facility] Comment on above: Performed By: #### G STAIN ####[facility] Xujtigyvon05[address] [place] [address]Dr. Farhat Leal DIPHTHEROIDS Normal [facility] Comment on above: Performed By: #### G STAIN ####[facility] Zasdhnjdqk12[address] [place] [address]Dr. Farhat Leal EPITHELIALS Normal [facility] Comment on above: Performed By: #### G STAIN ####[facility] Sbhjebwvdi49[address] [place] [address]Dr. Farhat Leal FUNGAL ELEMENTS Normal [facility] Comment on above: Performed By: #### G STAIN ####[facility] Rmanfjzlgn[address] [place] [address]Dr. Farhat Leal GRAM NEG BACILLI FEW Normal [facility] Comment on above: Performed By: #### G STAIN ####[facility] Bgieqpgxss5344 [place] [phone]. Farhat Leal GRAM NEG DIPPLOCOCCI Normal [facility] Comment on above: Performed By: #### G STAIN ####[facility] Ooacgtjbzx36[address] [place] [address]Dr. Farhat Leal GRAM POS BACILLI Normal [facility] Comment on above: Performed By: #### G STAIN ####[facility] Zqfmjsbemt48[address] [place] [address]Dr. Farhat Leal GRAM POSITIVE COCCI FEW Normal [facility] Comment on above: Performed By: #### G STAIN ####[facility] Lbcohnmfiu[address] [place] [address]Dr. Farhat Leal GRAM STAIN SOURCE #2 Rt foot abscess Normal [facility] Comment on above: Performed By: #### G STAIN ####[facility] Tpmsidters01[address] [place] [address]Dr. Farhat Leal GS_DIPTH Normal [facility] Comment on above: Performed By: #### G STAIN ####[facility] Fqsewdzcqk87[address] [place], [place] [address]Dr. Farhat Leal WBC RARE Normal [facility] Comment on above: Performed By: #### G STAIN ####[facility] Bebvbbshrr8[address] [place] [address]Dr. Farhat Leal DIPHTHEROIDS Normal [facility] Comment on above: Performed By: #### G STAIN ####[facility] Fworhbbrku30[address] [place] [address]Dr. Farhat Leal EPITHELIALS Normal [facility] Comment on above: Performed By: #### G STAIN ####[facility] Uslqsofrsn4[address] [place] [address]Dr. Farhat Leal FUNGAL ELEMENTS Normal [facility] Comment on above: Performed By: #### G STAIN ####[facility] Qeqwufzaqo232[address] [place] [address]Dr. Farhat Leal GRAM NEG BACILLI FEW Normal [facility] Comment on above: Performed By: #### G STAIN ####[facility] Uetlmukidj79[address] [place] [address]Dr. Farhat Leal GRAM NEG DIPPLOCOCCI Normal [facility] Comment on above: Performed By: #### G STAIN ####[facility] Ornsrsngqm35[address] [place] [address]Dr. Farhat Leal GRAM POS BACILLI Normal [facility] Comment on above: Performed By: #### G STAIN ####[facility] Hqvsimyicr67[address] [place] [address]Dr. Farhat Leal GRAM POSITIVE COCCI FEW Normal [facility] Comment on above: Performed By: #### G STAIN ####[facility] Pzdeevbecx92[address] [place] [address]Dr. Farhat Leal GRAM STAIN SOURCE #1 Rt foot abscess Normal [facility] Comment on above: Performed By: #### G STAIN ####[facility] Wxqjmchsle280[address] [place], [place] [address]Dr. Farhat Leal GS_DIPTH Normal [facility] Comment on above: Performed By: #### G STAIN ####[facility] Vjrbcayrlk88[address] [place], [place] [address]Dr. Farhat Leal WBC NONE SEEN Normal [facility] Comment on above: Performed By: #### G STAIN ####[facility] Wyyyvlyaqh27[address] [place], [place] [address]Dr. Farhat Leal POINT OF CARE GLUCOSEon 11-15 Glucose [Mass/Vol] 331 mg/dL Critically high 74-106 [facility] Comment on above: Performed By: #### P OCGLUC ####[facility] Cocgxphean8996[address] [place], [place] [address]Dr. Farhat Leal Glucose [Mass/Vol] 236 mg/dL Critically high 74-106 [facility] Comment on above: Performed By: #### P OCGLUC ####[facility] Ditrrbeell[address] [place], [place] [address]Dr. Farhat Leal PROF 14(COMP METB)on 022 Albumin [Mass/Vol] 1.6 g/dL Critically low 3.4-5.0 [facility] Comment on above: Performed By: #### B HEALTH SCIENCE SPECIALIST, CMP, CRP ####[facility] Azgmtkrxbj[address] [place] [address]Dr. Farhat Leal Albumin/Globulin [Mass ratio] 0.4 {ratio} Normal [facility] Comment on above: Performed By: #### B HEALTH SCIENCE SPECIALIST, CMP, CRP ####[facility] Chuhgytsym[address] [place] [address]Dr. Farhat Leal ALP [Catalytic activity/Vol] 94 U/L Normal 46-116 [facility] Comment on above: Performed By: #### B HEALTH SCIENCE SPECIALIST, CMP, CRP ####[facility] Fzrajuzhaz3[address] [place], [place] [address]Dr. Farhat Leal ALT [Catalytic activity/Vol] 49 U/L Normal 16-63 [facility] Comment on above: Performed By: #### B HEALTH SCIENCE SPECIALIST, CMP, CRP ####[facility] Wrgpepzvsx[address] [place], [place] [address]Dr. Farhat Leal Anion gap [Moles/Vol] 12.5 mmol/L Normal [facility] Comment on above: Performed By: #### B HEALTH SCIENCE SPECIALIST, CMP, CRP ####[facility] Jpnbawlvwa14[address] [place], [place] [address]Dr. Farhat Leal AST [Catalytic activity/Vol] 102 U/L Critically high 15-37 [facility] Comment on above: Performed By: #### B HEALTH SCIENCE SPECIALIST, CMP, CRP ####[facility] Yrxwvxihle4947[address] [place], [place] [address]Dr. Farhat Leal Bilirubin [Mass/Vol] 0.8 mg/dL Normal 0.2-1.0 [facility] Comment on above: Performed By: #### B HEALTH SCIENCE SPECIALIST, CMP, CRP ####[facility] Pdigxmfodi8468[address] [place], [place] [address]Dr. Farhat Leal Calcium [Mass/Vol] 8.4 mg/dL Critically low 8.5-10.1 [facility] Comment on above: Performed By: #### B HEALTH SCIENCE SPECIALIST, CMP, CRP ####[facility] Iykqrekdmi3963[address] [place], [place] [address]Dr. Farhat Leal Chloride [Moles/Vol] 96 mmol/L Critically low 98-107 [facility] Comment on above: Performed By: #### B HEALTH SCIENCE SPECIALIST, CMP, CRP ####[facility] Qbuensbjrc48[address] [place] [address]Dr. Farhat Leal CO2 [Moles/Vol] 24.8 mmol/L Normal 21.0-32.0 [facility] Comment on above: Performed By: #### B HEALTH SCIENCE SPECIALIST, CMP, CRP ####[facility] Djzlnkgjgz04[address] [place] [address]Dr. Farhat Leal Creatinine [Mass/Vol] 1.36 mg/dL Critically high 0.70-1.30 [facility] Comment on above: Performed By: #### B HEALTH SCIENCE SPECIALIST, CMP, CRP ####[facility] Ocsdavbplk47[address] [place], [place] [address]Dr. Farhat Leal EGFR-AF BURUNDIAN >60 Normal >=60 [facility] Comment on above: Performed By: #### B HEALTH SCIENCE SPECIALIST, CMP, CRP ####[facility] Kfzcpiekxq4904[address] [place], [place] [address]Dr. Farhat Leal EGFR-NON AF BURUNDIAN 51 mL/min/1.73m2 Critically low >=60 [facility] Comment on above: Performed By: #### B HEALTH SCIENCE SPECIALIST, CMP, CRP ####[facility] Dkonoptpfu642[address] [place], [place] [address]Dr. Farhat Leal Globulin (S) [Mass/Vol] 4.1 g/dL Normal [facility] Comment on above: Performed By: #### B HEALTH SCIENCE SPECIALIST, CMP, CRP ####[facility] Tgqurdjxsj072[address] [place], [place] [address]Dr. Farhat Leal Glucose [Mass/Vol] 204 mg/dL Critically high 74-106 [facility] Comment on above: Performed By: #### B HEALTH SCIENCE SPECIALIST, CMP, CRP ####[facility] Uzhwtjwrwj12[address] [place], [place] [address]Dr. Farhat Leal Potassium [Moles/Vol] 4.3 mmol/L Normal 3.5-5.1 [facility] Comment on above: Performed By: #### B HEALTH SCIENCE SPECIALIST, CMP, CRP ####[facility] Dshhriausq2935[address] [place], [place] [address]Dr. Farhat Leal Protein [Mass/Vol] 5.7 g/dL Critically low 6.4-8.2 [facility] Comment on above: Performed By: #### B HEALTH SCIENCE SPECIALIST, CMP, CRP ####[facility] Oxfhmyoanw64[address] [place] [address]Dr. Farhat Leal Sodium [Moles/Vol] 129 mmol/L Critically low 136-145 [facility] Comment on above: Performed By: #### B HEALTH SCIENCE SPECIALIST, CMP, CRP ####[facility] Apqkkplpsc9454 [place] [address]Dr. Farhat Leal Urea nitrogen [Mass/Vol] 41.0 mg/dL Critically high 7.0-18.0 [facility] Comment on above: Performed By: #### B HEALTH SCIENCE SPECIALIST, CMP, CRP ####[facility] Chyrvxkjhb5162 [place] [address]Dr. Farhat Leal Urea nitrogen/Creatinine [Mass ratio] 30.1 mg/mg Normal [facility] Comment on above: Performed By: #### B HEALTH SCIENCE SPECIALIST, CMP, CRP ####[facility] Dasoyqyskz67[address] [place], [place] [address]Dr. Farhat Leal PROTIMEon 11-24-2021 INR Coag (PPP) [Relative time] 2.20 {INR} Normal [facility] Comment on above: Performed By: #### P T ####[facility] Yjmrkzqfjf[address] [place], [place] [address]Dr. Farhat Leal INR GUIDELINES SEE BELOW Normal [facility] Comment on above: Result Comment: MALINA RED INR: 2.0 - 3.0 CONDITIONS NOT LISTED BELOW 2.5 - 3.5 FOR PROSTHETIC HEART VALVE REPLACEMENT 2.5 - 3.5 RECURRENT THROMBOSIS Performed By: #### P T ####[facility] Dmfizixplo[address] [place], [place] [address]Dr. Farhat Leal PT Coag (PPP) [Time] 22.6 s Critically high 9.0-11.6 [facility] Comment on above: Performed By: #### P T ####[facility] Whvjecnzmi[address] [place], [place] [address]Dr. Farhat Leal SED RATE WESTERGRENon 2021 SED RATE 80 mm/hr Critically high <=20 [facility] Comment on above: Performed By: #### S EDR ####[facility] Tsgctalkou29[address] [place] [id number]. Farhat Leal BLOOD CULTURE ID PANELon A. baumannii Not detected Normal NOT DETECTED [facility] Comment on above: Performed By: #### B CID2 ####[facility] Eyhjdoftoe0246 [place] [id number]. Farhat Leal Bacteriodes fragilis Not detected Normal NOT DETECTED [facility] Comment on above: Performed By: #### B CID2 ####[facility] Xyeoccxfcm3845 [place] [address]Dr. Farhat Elvis BCID CONTROLS PASSED Normal [facility] Comment on above: Performed By: #### B CID2 ####[facility] Yjipotvdit7141 [place] [phone]. Madelynlorri Elvis BCIDBTHD BLOOD CULTURE BOTTLE INFORMATION Normal [facility] Comment on above: Performed By: #### B CID2 ####[facility] Msidtvlqoy4843 [place] [id number]. Farhat Leal BCIDHD1 ANTIMICROBIAL RESISTANCE GENES Normal [facility] Comment on above: Performed By: #### B CID2 ####[facility] Zfgfajngyz4[address] [place] [address]Dr. Farhat Leal BCIDHD2 SEE BELOW Normal [facility] Comment on above: Result Comment: Note : Antimicrobial resitance can occur via multiple mechanisms. A Not Detected result for the [employer] antomicrobial resistance gene assays does not indicate antimicrobial susceptibility. Subculturing is required for species identification and susceptibility testing of isolates. Performed By: #### B CID2 ####[facility] Jhqogmsnln75[address] [place], [place] [address]Dr. Farhat Leal BCIDHD3 Positive Normal [facility] Comment on above: Performed By: #### B CID2 ####[facility] Lbrjxhbmvf5420 [place] [phone]. Farhat Leal BCIDHD4 Negative Normal [facility] Comment on above: Performed By: #### B CID2 ####[facility] Ypwuzgwxmk1348 [place] [address]Dr. Farhat Leal BCIDHD5 YEAST Normal [facility] Comment on above: Performed By: #### B CID2 ####[facility] Iqqgnnwyul0736 [place] [address]Dr. Yilan Leal Bottle Set: Set 1 Normal [facility] Comment on above: Performed By: #### B CID2 ####[facility] Vnaudekaez0658 [place] [address]Dr. Farhat Leal Bottle: Aerobic Normal [facility] Comment on above: Performed By: #### B CID2 ####[facility] Onawryhtaq99[address] [place], [place] [address]Dr. Farhat Leal C. neoformans/gattii Not detected Normal NOT DETECTED [facility] Comment on above: Performed By: #### B CID2 ####[facility] Jywpbvlpqt[address] [place], [place] [address]Dr. Yilorri Leal Disha albicans Not detected Normal NOT DETECTED [facility] Comment on above: Performed By: #### B CID2 ####[facility] Hqaytncgsv12[address] [place], [place] [address]Dr. Farhat Leal Disha auris Not detected Normal NOT DETECTED [facility] Comment on above: Performed By: #### B CID2 ####[facility] Ygepookdxe8158[address] [place], [place] [address]Dr. Yilorri Leal Disha glabrata Not detected Normal NOT DETECTED [facility] Comment on above: Performed By: #### B CID2 ####[facility] Eqtympmqvi8091 [place] [address]Dr. Yilorri Leal Disha Krusei Not detected Normal NOT DETECTED [facility] Comment on above: Performed By: #### B CID2 ####[facility] Zwihrdkuri0[address] [place], [place] [address]Dr. Yilorri Leal Disha Parapsilosis Not detected Normal NOT DETECTED [facility] Comment on above: Performed By: #### B CID2 ####[facility] Atcpyjcixz[address] [place], [place] [address]Dr. Farhat Leal Disha Tropicalis Not detected Normal NOT DETECTED [facility] Comment on above: Performed By: #### B CID2 ####[facility] Mygvtrkixg192[address] [place], [place] [address]Dr. Farhat Leal CTX-M Resistant Gene Not Applicable Normal NOT DETECTE D [facility] Comment on above: Performed By: #### B CID2 ####[facility] Heuznjhbfv397[address] [place], [place] [address]Dr. Farhat Leal E. Cloacae complex Not detected Normal NOT DETECTED [facility] Comment on above: Performed By: #### B CID2 ####[facility] Syqjqusfdx6960[address] [place], [place] [address]Dr. Farhat Leal E. faecalis Not detected Normal NOT DETECTED [facility] Comment on above: Performed By: #### B CID2 ####[facility] Ojwpbizpak[address] [place], [place] [address]Dr. Farhat Leal E. faecium Not detected Normal NOT DETECTED [facility] Comment on above: Performed By: #### B CID2 ####[facility] Xbxbgxilkg7187[address] [place], [place] [address]Dr. Farhat Leal Enterobacteriaceae Not detected Normal NOT DETECTED [facility] Comment on above: Performed By: #### B CID2 ####[facility] Phqgkiqhci0733[address] [place], [place] [address]Dr. Farhat Leal Escherichia coli Not detected Normal NOT DETECTED [facility] Comment on above: Performed By: #### B CID2 ####[facility] Guizbfnoxr4054[address] [place], [place] [address]Dr. Farhat Leal H. influenzae Not detected Normal NOT DETECTED [facility] Comment on above: Performed By: #### B CID2 ####[facility] Axcrpgpotv[address] [place], [place] [address]Dr. Farhat Leal IMP Resistant Gene Not Applicable Normal NOT DETECTED [facility] Comment on above: Performed By: #### B CID2 ####[facility] Gaxbctyxax69[address] [place], [place] [address]Dr. Farhat Leal K. oxytoca Not detected Normal NOT DETECTED [facility] Comment on above: Performed By: #### B CID2 ####[facility] Siajsdaxca1717 [place] [address]Dr. Farhat Leal K. pneumoniae Not detected Normal NOT DETECTED [facility] Comment on above: Performed By: #### B CID2 ####[facility] Nplnvpjznd2697 [place] [phone]. Farhat Leal Klebsiella aerogenes Not detected Normal NOT DETECTED [facility] Comment on above: Performed By: #### B CID2 ####[facility] Oydkzxvrua[address] [place], [place] [address]Dr. Farhat Leal KPC Resistant Gene Not Applicable Normal NOT DETECTED [facility] Comment on above: Performed By: #### B CID2 ####[facility] Fmsixcfqkb9557[address] [place], [place] [address]Dr. Farhat Leal List. monocytogenes Not detected Normal NOT DETECTED [facility] Comment on above: Performed By: #### B CID2 ####[facility] Ouybbbswho[address] [place], [place] [address]Dr. Farhat Leal Mcr-1 Resistant Gene Not Applicable Normal NOT DETECTE D [facility] Comment on above: Performed By: #### B CID2 ####[facility] Yvzmswwaaj3262[address] [place], [place] [address]Dr. Farhat Leal mecA/C Not Applicable Normal NOT DETECTED [facility] Comment on above: Performed By: #### B CID2 ####[facility] Wxbgxuhama6744 [place] [address]Dr. Farhat Leal mecA/C MREJ Detected Abnormal NOT DETECTED [facility] Comment on above: Performed By: #### B CID2 ####[facility] Mptgdfrkuv7834[address] [place], [place] [address]Dr. Farhat Leal N. meningitidis Not detected Normal NOT DETECTED [facility] Comment on above: Performed By: #### B CID2 ####[facility] Rnakoxwwqx06[address] [place], [place] [address]Dr. Farhat Leal NDM Resistant Gene Not Applicable Normal NOT DETECTED [facility] Comment on above: Performed By: #### B CID2 ####[facility] Awqgoevktw10[address] [place], [place] [address]Dr. Farhat Leal Oxa-48-like Not Applicable Normal NOT DETECTED [facility] Comment on above: Performed By: #### B CID2 ####[facility] Etgxzyxejg[address] [place], [place] [address]Dr. Farhat Leal Proteus Not detected Normal NOT DETECTED [facility] Comment on above: Performed By: #### B CID2 ####[facility] Gefvawmtkk[address] [place], [place] [address]Dr. Farhat Leal Pseud. aeruginosa Not detected Normal NOT DETECTED [facility] Comment on above: Performed By: #### B CID2 ####[facility] Yvvdiegmwn850499 [address] [address] [place], [place] [address]Dr. Farhat Leal S. maltophilia Not detected Normal NOT DETECTED [facility] Comment on above: Performed By: #### B CID2 ####[facility] Jtanjnkcsn[address] [place], [place] [address]Dr. Farhat Leal Salmonella Not detected Normal NOT DETECTED [facility] Comment on above: Performed By: #### B CID2 ####[facility] Whnfvtexey7708[address] [place], [place] [address]Dr. Farhat Leal Seratia marcescens Not detected Normal NOT DETECTED [facility] Comment on above: Performed By: #### B CID2 ####[facility] Voyvwgzvpj1704[address] [place], [place] [address]Dr. Farhat Leal Site: Rt Hand Normal The [facility] Comment on above: Performed By: #### B CID2 ####[facility] Czpikhiubx[address] [place], [place] [address]Dr. Farhat Leal Staph. aureus Detected Abnormal NOT DETECTED The [facility] Comment on above: Performed By: #### B CID2 ####[facility] Zznifuflzb5833[address] [place], [place] [address]Dr. Farhat Leal Staph. epidermidis Not detected Normal NOT DETECTED [facility] Comment on above: Performed By: #### B CID2 ####[facility] Lzxqccaide30[address] [place], [place] [address]Dr. Farhat Leal Staph. lugdunensis Not detected Normal NOT DETECTED [facility] Comment on above: Performed By: #### B CID2 ####[facility] Jdcpphokgb5126[address] [place], [place] [address]Dr. Farhat Leal Staphylococcus Detected Abnormal NOT DETECTED [facility] Comment on above: Performed By: #### B CID2 ####[facility] Oxenohmscq5216[address] [place], [place] [address]Dr. Farhat Leal Strep. agalactiae Not detected Normal NOT DETECTED The [facility] Comment on above: Performed By: #### B CID2 ####[facility] Allyyoqucm6295[address] [place], [place] [address]Dr. Farhat Leal Strep. pneumoniae Not detected Normal NOT DETECTED The [facility] Comment on above: Performed By: #### B CID2 ####[facility] Wktwryzgsq2543[address] [place], [place] [address]Dr. Farhat Leal Strep. pyogenes Not detected Normal NOT DETECTED [facility] Comment on above: Performed By: #### B CID2 ####[facility] Kyxupafnkh[address] [place], [place] [address]Dr. Farhat Leal Streptococcus Not detected Normal NOT DETECTED [facility] Comment on above: Performed By: #### B CID2 ####[facility] Asqyvcnehz9[address] [place], [place] [address]Dr. Farhat Leal Teodoro/B Resist. Gene Not Applicable Normal NOT DETECTED The [facility] Comment on above: Performed By: #### B CID2 ####[facility] Ouzckbxoil5188[address] [place], [place] [address]Dr. Farhat Leal VIM Resistant Gene Not Applicable Normal NOT DETECTED The [facility] Comment on above: Performed By: #### B CID2 ####[facility] Tfnjnfxbfv8603[address] [place], [place] [address]Dr. Farhat Leal BNPon 11-23-2021 Natriuretic peptide B (Bld) [Mass/Vol] 79164.0 pg/mL Critically high <=1,800.0 The [facility] Comment on above: Performed By: #### C MP, CMADM, BNP ####[facility] [address] [place] [address]Dr. Farhat Leal CARDIAC AMANDA ADMITon 022 CK [Catalytic activity/Vol] 41 U/L Normal 39-308 The [facility] Comment on above: Performed By: #### C MP, CMADM, BNP ####[facility] Xlfkuqmdqb4[address] [place] [address]Dr. Farhat Leal CK.MB [Mass/Vol] 0.98 ng/mL Normal <=3.60 [facility] Comment on above: Performed By: #### C MP, CMADM, BNP ####[facility] Ew[address]nbnejem[address] [place] [address]Dr. Farhat Leal HSTROP 30.1 pg/mL Normal 4.0-76.1 [facility] Comment on above: Result Comment: CUT- OFF POINTS HAVE BEEN ESTABLISHED BASED ON THE FOURTH UNIVERSAL DEFINITIONS OF MYOCARDIALINFARCTION. THE UPPER REFERENCE LIMIT (URL) OF TROPONIN, DEFINED THE 99TH PERCENTILE OFcTnI DISTRIBUTION IN A REFERENCE POPULATION, HAS BEEN CONFIRMED THE DECISION THRESHOLDFOR ND DIAGNOSIS. Performed By: #### C MP, CMADM, BNP ####[facility] Jyinbytcta[address] [place] [address]Dr. Madelynlorri Leal AVLERIA 160 ng/mL Critically high 16-96 [facility] Comment on above: Performed By: #### C MP, CMADM, BNP ####[facility] Rfiuuqkaco[address] [place] [address]Dr. Farhat Elvis CBC AUTO DIFFon 11-23-2021 BASO # 0.0 103/ul Normal 0.0-0.1 [facility] Comment on above: Performed By: #### C BC ####[facility] Fpbwoippum[address] [place] [address]Dr. Farhat Leal Basophils/100 WBC (Bld) 0.2 % Normal 0.2-2.0 The [facility] Comment on above: Performed By: #### C BC ####[facility] Jcmtlkzmye[address] [place] [address]Dr. Farhat Leal EO # 0.0 103/ul Normal 0.0-0.7 [facility] Comment on above: Performed By: #### C BC ####[facility] Xfldegdzrk24[address] [place] [address]Dr. Farhat Leal Eosinophils/100 WBC (Bld) 0.1 % Critically low 0.9-7.0 The [facility] Comment on above: Performed By: #### C BC ####[facility] Uxtzsgqyuz87[address] [place] [address]Dr. Farhat Leal Erythrocyte distribution width (RBC) [Ratio] 13.4 % Normal 11.0-15.0 The [facility] Comment on above: Performed By: #### C BC ####[facility] Zyzmyiouik11[address] [place], [place] [address]Dr. Farhat Leal Hematocrit (Bld) [Volume fraction] 31.6 % Critically low 42.0-54.0 The [facility] Comment on above: Performed By: #### C BC ####[facility] Amnbtlotke1198[address] [place], [place] [address]Dr. Farhat Leal Hemoglobin (Bld) [Mass/Vol] 10.4 g/dL Critically low 14.0-18.0 The [facility] Comment on above: Performed By: #### C BC ####[facility] Lxsqcqzixt1302[address] [place], [place] [address]Dr. Farhat Leal IG # 0.11 10e3/ul Critically high 0.00-0.03 [facility] Comment on above: Performed By: #### C BC ####[facility] Ifuswvemck34[address] [place] [address]Dr. Farhat Leal IG % 0.7 % Critically high 0.0-0.5 [facility] Comment on above: Performed By: #### C BC ####[facility] Xnpvtaedya86[address] [place], [place] [address]Dr. Farhat Leal LYMPH # 0.5 103/ul Critically low 1.2-3.8 [facility] Comment on above: Performed By: #### C BC ####[facility] Mtfrebohjq1750 [place] [address]Dr. Farhat Elvis Lymphocytes/100 WBC (Bld) 2.8 % Critically low 20.5-60.0 The [facility] Comment on above: Performed By: #### C BC ####[facility] Fsogyvoeoh[address] [place] [address]Dr. Madelynlorri Leal MANUAL DIFF REQ NO Normal The [facility] Comment on above: Performed By: #### C BC ####[facility] Tqhuewzmcb55[address] [place] [address]Dr. Madelynlorri Leal MCH (RBC) [Entitic mass] 29.8 pg Normal 25.9-34.0 The [facility] Comment on above: Performed By: #### C BC ####[facility] Ltpxczxkve[address] [place], [place] [address]Dr. Farhat Leal MCHC (RBC) [Mass/Vol] 32.9 g/dL Normal 29.9-35.2 [facility] Comment on above: Performed By: #### C BC ####[facility] Ptdhqfnilj[address] [place] [address]Dr. Farhat Leal MCV (RBC) [Entitic vol] 90.5 fL Normal 80.0-94.0 [facility] Comment on above: Performed By: #### C BC ####[facility] Cdaiwyrpje8656[address] [place], [place] [address]Dr. Farhat Leal MONO # 1.3 103/ul Critically high 0.3-0.8 [facility] Comment on above: Performed By: #### C BC ####[facility] Rhrgtydrnb8[address] [place] [address]Dr. Farhat Leal Monocytes/100 WBC (Bld) 8.3 % Normal 1.7-12.0 The [facility] Comment on above: Performed By: #### C BC ####[facility] Aheukiccyu14[address] [place], [place] [address]Dr. Farhat Leal NEUT # 13.9 103/ul Critically high 1.4-6.5 [facility] Comment on above: Performed By: #### C BC ####[facility] L[address]asfy06[address] [place], [place] [address]So. Farhat Leal Neutrophils/100 WBC (Bld) 87.9 % Critically high 43.0-75.0 [facility] Comment on above: Performed By: #### C BC ####[facility] Otohscmhwx3[address] [place], [place] [address]Ii. Farhat Leal Platelet mean volume (Bld) [Entitic vol] 9.3 fL Critically low 9.5-13.5 The [facility] Comment on above: Performed By: #### C BC ####[facility] Ejbdhrzkru69[address] [place], [place] [address]Ud. Farhat Leal PLT 390 103/ul Normal 150-450 The [facility] Comment on above: Performed By: #### C BC ####[facility] Oqdnrpkkaw0561 [place], [place] [address]Yn. Farhat Leal RBC 3.49 106/ul Critically low 4.70-6.10 [facility] Comment on above: Performed By: #### C BC ####[facility] Ycyixnnxaq5211 [place], [place] [address]Ks. Farhat Leal WBC 15.9 103/ul Critically high 4.0-11.0 [facility] Comment on above: Performed By: #### C BC ####[facility] Cdslthnepv9523 [place], [place] [address]Ur. Farhat Leal CT HEAD WO CONon 11-23-2021 CT HEAD WO CON Normal [facility] CULTURE BLOODon 11-23-2021 Microscopic examination of blood, culture Culture Observations: NO GROWTH AT 5 DAYS. Normal The [facility] Comment on above: Performed By: #### B LDCX2 ####[facility] Nlxcfqlufs[address] [place] [id number]. Farhat Leal Covid-19 PCR [facility]on SARS-CoV-2 (COVID-19) RNA JOSH+probe Ql (Unsp spec) Not detected Normal NOT DETECTED The [facility] Comment on above: Result Comment: When diagnostic [...] for this test is supported by the [place] of [employer] and Human Service's declaration that [...] be used). Performed By: #### C VDTBH ####[facility] Nivhcdbfil[address]38[address] [place], [place] [address]DrSkylar Leal LACTATE/LACTIC ACIDon 2021 Lactate [Moles/Vol] 1.3 mmol/L Normal 0.4-1.[address] [facility] Comment on above: Performed By: #### L ACT ####[facility] Jjfvglkugw23[address] [place], [place] [address]DrSkylar Leal Lactate [Moles/Vol] 1.3 mmol/L Normal 0.4-1.[address] [facility] Comment on above: Performed By: #### L ACT ####[facility] Uylkrcznfl2532[address] [place], [place] [address]DrSkylar Leal POINT OF CARE GLUCOSEon Glucose [Mass/Vol] 252 mg/dL Critically high 74-106 T [facility] Comment on above: Performed By: #### P OCGLUC ####[facility] Fkljfyirhz4[address] [place], [place] [address]DrSkylar Leal PROF 14(COMP METB)on 022 Albumin [Mass/Vol] 1.6 g/dL Critically low 3.4-5.0 [facility] Comment on above: Performed By: #### C MP, CMADM, BNP ####[facility] Wteuxtjkaf[address] [place], [place] [address]DrSkylar Leal Albumin/Globulin [Mass ratio] 0.4 {ratio} Normal [facility] Comment on above: Performed By: #### C FATMATA MARROQUINDM, BNP ####[facility] Nssxqwtysw[address] [place] [address]Dr. Farhat Leal ALP [Catalytic activity/Vol] 98 U/L Normal 46-116 [facility] Comment on above: Performed By: #### C MP CMADM, BNP ####[facility] Ylgdylepnv4523 [place] [address]Dr. Farhat Leal ALT [Catalytic activity/Vol] 52 U/L Normal 16-63 [facility] Comment on above: Performed By: #### C CARA CMADM, BNP ####[facility] Ecmfvgkpdi9278 [place] [address]Dr. Madelynlorri lEvis Anion gap [Moles/Vol] 9.8 mmol/L Normal [facility] Comment on above: Performed By: #### C CARA CMADM, BNP ####[facility] Xoknmowvbt0754 [place] [address]Dr. Farhat Leal AST [Catalytic activity/Vol] 122 U/L Critically high 15-37 [facility] Comment on above: Performed By: #### C CARA CMADM, BNP ####[facility] Xfzgboitdj9650 [place] [address]Dr. Farhat Elvis Bilirubin [Mass/Vol] 0.7 mg/dL Normal 0.2-1.0 [facility] Comment on above: Performed By: #### C CARA CMADM, BNP ####[facility] Jreibqrndx7[address] [place] [address]Dr. Farhat Elvis Calcium [Mass/Vol] 8.6 mg/dL Normal 8.5-10.1 [facility] Comment on above: Performed By: #### C MP CMADM, BNP ####[facility] Uryrugqjkb85[address] [place] [address]Dr. Farhat Leal Chloride [Moles/Vol] 95 mmol/L Critically low 98-107 [facility] Comment on above: Performed By: #### C CARA CMADM, BNP ####[facility] Iwnsumeazo9261 [place] [address]Dr. Farhat Leal CO2 [Moles/Vol] 29.6 mmol/L Normal 21.0-32.0 [facility] Comment on above: Performed By: #### C MP, CMADM, BNP ####[facility] Ayglycadri6485 [place] [address]Dr. Farhat Leal Creatinine [Mass/Vol] 1.49 mg/dL Critically high 0.70-1.30 [facility] Comment on above: Performed By: #### C MP, CMADM, BNP ####[facility] Rawcqomvqh6[address] [place] [address]Dr. Farhat Leal EGFR-AF BURUNDIAN 55 mL/min/1.73m2 Critically low >=60 [facility] Comment on above: Performed By: #### C MP, CMADM, BNP ####[facility] Rfxonfilvo3603 [place] [address]Dr. Farhat Leal EGFR-NON AF BURUNDIAN 46 mL/min/1.73m2 Critically low >=60 [facility] Comment on above: Performed By: #### C MP, CMADM, BNP ####[facility] Lgqozxbznd4172[address] [place], [place] [address]Dr. Farhat Leal Globulin (S) [Mass/Vol] 4.3 g/dL Normal [facility] Comment on above: Performed By: #### C MP, CMADM, BNP ####[facility] Hvelspvedr6[address] [place] [address]Dr. Farhat Leal Glucose [Mass/Vol] 213 mg/dL Critically high 74-106 T [facility] Comment on above: Performed By: #### C MP, CMADM, BNP ####[facility] Keiwxccfnm9488[address] [place], [place] [address]Dr. Farhat Leal Potassium [Moles/Vol] 4.4 mmol/L Normal 3.5-5.1 [facility] Comment on above: Performed By: #### C MP, CMADM, BNP ####[facility] Hndzonmxtc0066 [place] [address]Dr. Farhat Leal Protein [Mass/Vol] 5.9 g/dL Critically low 6.4-8.2 [facility] Comment on above: Performed By: #### C MP, CMADM, BNP ####[facility] Yadltzegia18[address] [place] [address]Dr. Farhat Leal Sodium [Moles/Vol] 130 mmol/L Critically low 136-145 [facility] Comment on above: Performed By: #### C MP, CMADM, BNP ####[facility] Paxjmcegwt5413[address] [place], [place] [address]Dr. Farhat Leal Urea nitrogen [Mass/Vol] 46.0 mg/dL Critically high 7.0-18.0 [facility] Comment on above: Performed By: #### C MP, CMADM, BNP ####[facility] Mbrkfljfad[address] [place], [place] [address]Dr. Farhat Leal Urea nitrogen/Creatinine [Mass ratio] 30.9 mg/mg Normal [facility] Comment on above: Performed By: #### C MP, CMADM, BNP ####[facility] Jhhcfxjpod5466[address] [place], [place] [address]Dr. Farhat Leal PROTIMEon 11-23-2021 INR Coag (PPP) [Relative time] 2.55 {INR} Normal [facility] Comment on above: Performed By: #### P TT, PT ####[facility] Tkgxwwkmie0962[address] [place], [place] [address]Dr. Farhat Leal INR GUIDELINES SEE BELOW Normal [facility] Comment on above: Result Comment: MALINA RED INR: 2.0 - 3.0 CONDITIONS NOT LISTED BELOW 2.5 - 3.5 FOR PROSTHETIC HEART VALVE REPLACEMENT 2.5 - 3.5 RECURRENT THROMBOSIS Performed By: #### P TT, PT ####[facility] Hflanjzhix8745[address] [place], [place] [address]Dr. Farhat Leal PT Coag (PPP) [Time] 25.9 s Critically high 9.0-11.6 [facility] Comment on above: Performed By: #### P TT, PT ####[facility] Eqchflqgyg4375[address] [place], [place] [address]Dr. Farhat Leal PTTon 11-23-2021 aPTT Coag (Bld) [Time] 39.9 s Critically high 22.3-36. 2 [facility] Comment on above: Performed By: #### P TT, PT ####[facility] Iydcodmyto8105[address] [place], [place] [address]Dr. Farhat Leal XR CHEST 1 Von 11-23-2021 XR CHEST 1 V Normal [facility] XR HEEL RT 2Von 11-23-2021 XR HEEL RT 2V Normal [facility] XR FOOT RT MIN 3 VIEWSon XR FOOT RT MIN 3 VIEWS Normal [facility] US ARTERY LEG RTon US ARTERY LEG RT Normal [facility] CBC AUTO DIFFon 09-24-2021 BASO # 0.1 103/ul Normal 0.0-0.1 [facility] Comment on above: Performed By: #### C BC ####[facility] Suehgafpyv0208[address] [place], [place] [address]Dr. Farhat Leal Basophils/100 WBC (Bld) 0.7 % Normal 0.2-2.0 [facility] Comment on above: Performed By: #### C BC ####[facility] Uvxbvspimr023[address] [place], [place] [address]DrSkylar Leal EO # 0.3 103/ul Normal 0.0-0.7 [facility] Comment on above: Performed By: #### C BC ####[facility] Hirebrispp838[address] [place], [place] [address]DrSkylar Leal Eosinophils/100 WBC (Bld) 3.9 % Normal 0.9-7.0 [facility] Comment on above: Performed By: #### C BC ####[facility] Ogbkkgapzp4988[address] [place], [place] [address]DrSkylar Leal Erythrocyte distribution width (RBC) [Ratio] 12.6 % Normal 11.0-15.0 [facility] Comment on above: Performed By: #### C BC ####[facility] Uqycbligkv1547[address] [place], [place] [address]DrSkylar Leal Hematocrit (Bld) [Volume fraction] 38.9 % Critically low 42.0-54.0 [facility] Comment on above: Performed By: #### C BC ####[facility] Httjaikwsr9553 [place] [address]DrSkylar Farhat Elvis Hemoglobin (Bld) [Mass/Vol] 12.8 g/dL Critically low 14.0-18.0 [facility] Comment on above: Performed By: #### C BC ####[facility] Txxgzgccid6766[address] [place], [place] [address]DrSkylar Leal IG # 0.10 10e3/ul Critically high 0.00-0.03 [facility] Comment on above: Performed By: #### C BC ####[facility] Lozykunvqv4646[address] [place], [place] [address]DrSkylar Leal IG % 1.2 % Critically high 0.0-0.5 [facility] Comment on above: Performed By: #### C BC ####[facility] Ijlqbjeiuu060[address] [place], [place] [address]DrSkylar Leal LYMPH # 2.1 103/ul Normal 1.2-3.8 [facility] Comment on above: Performed By: #### C BC ####[facility] Ueeulnwafb3738[address] [place], [place] [address]DrSkylar Leal Lymphocytes/100 WBC (Bld) 25.9 % Normal 20.5-60.0 [facility] Comment on above: Performed By: #### C BC ####[facility] Qplktdpxhk8615[address] [place], [place] [address]DrSkylar Leal MANUAL DIFF REQ NO Normal [facility] Comment on above: Performed By: #### C BC ####[facility] Fmahmxirjn6592[address] [place], [place] [address]DrSkylar Leal MCH (RBC) [Entitic mass] 31.1 pg Normal 25.9-34.0 [facility] Comment on above: Performed By: #### C BC ####[facility] Vgozxjtquk4548[address] [place], [place] [address]DrSkylar Leal MCHC (RBC) [Mass/Vol] 32.9 g/dL Normal 29.9-35.2 [facility] Comment on above: Performed By: #### C BC ####[facility] Lmkecclexg0316 [place] [address]Dr. Farhat Leal MCV (RBC) [Entitic vol] 94.6 fL Critically high 80.0-94.0 [facility] Comment on above: Performed By: #### C BC ####[facility] Dmkqvusumj7646[address] [place], [place] [address]Dr. Farhat Leal MONO # 1.2 103/ul Critically high 0.3-0.8 [facility] Comment on above: Performed By: #### C BC ####[facility] Urtmlzvvpp023[address] [place], [place] [address]Dr. Farhat Leal Monocytes/100 WBC (Bld) 14.1 % Critically high 1.7-12.0 [facility] Comment on above: Performed By: #### C BC ####[facility] Iqpnklqqnk6086[address] [place], [place] [address]Dr. Farhat Leal NEUT # 4.4 103/ul Normal 1.4-6.5 [facility] Comment on above: Performed By: #### C BC ####[facility] Obbtmprswu8250[address] [place], [place] [address]Dr. Farhat Leal Neutrophils/100 WBC (Bld) 54.2 % Normal 43.0-75.0 [facility] Comment on above: Performed By: #### C BC ####[facility] Zzakrssnwg3532[address] [place], [place] [address]Dr. Farhat Leal Platelet mean volume (Bld) [Entitic vol] 9.9 fL Normal 9.5-13.5 [facility] Comment on above: Performed By: #### C BC ####[facility] Pmppvwuyrd0440[address] [place], [place] [address]Dr. Farhat Leal PLT 224 103/ul Normal 150-450 [facility] Comment on above: Performed By: #### C BC ####[facility] Ugmvyzpeks027[address] [place], [place] [address]Dr. Farhat Leal RBC 4.11 106/ul Critically low 4.70-6.10 [facility] Comment on above: Performed By: #### C BC ####[facility] Toawdlzekr24[address] [place] [address]Dr. Farhat Elvis WBC 8.2 103/ul Normal 4.0-11.0 [facility] Comment on above: Performed By: #### C BC ####[facility] Tvqdbcmzgs83[address] [place], [place] [address]Dr. Farhat Leal PROF CHEM 8 (BAS METB)on Anion gap [Moles/Vol] 9.6 mmol/L Normal [facility] Comment on above: Performed By: #### B MP ####[facility] [place] [address]mihywvyw[address] [place], [place] [address]Dr. Farhat Leal Calcium [Mass/Vol] 8.6 mg/dL Normal 8.5-10.1 [facility] Comment on above: Performed By: #### B MP ####[facility] Vrlngfijlo09[address] [place], [place] [address]Dr. Farhat Leal Chloride [Moles/Vol] 94 mmol/L Critically low 98-107 [facility] Comment on above: Performed By: #### B MP ####[facility] Ggbaksqjyv53[address] [place], [place] [address]Dr. Farhat Leal CO2 [Moles/Vol] 28.1 mmol/L Normal 21.0-32.0 [facility] Comment on above: Performed By: #### B MP ####[facility] Loqudawlzb7[address] [place], [place] [address]Dr. Farhat Leal Creatinine [Mass/Vol] 1.91 mg/dL Critically high 0.70-1.30 [facility] Comment on above: Performed By: #### B MP ####[facility] Muvjcqjiep[address] [place], [place] [address]Dr. Farhat Leal EGFR-AF BURUNDIAN 42 mL/min/1.73m2 Critically low >=60 [facility] Comment on above: Performed By: #### B MP ####[facility] [address]td[address]qjr[address] [place] [address]Dr. Madelynlorri Elvis EGFR-NON AF BURUNDIAN 34 mL/min/1.73m2 Critically low >=60 [facility] Comment on above: Performed By: #### B MP ####[facility] Ozygqwyzgs87[address] [place], [place] [address]Dr. Farhat Leal Glucose [Mass/Vol] 314 mg/dL Critically high 74-106 T [facility] Comment on above: Performed By: #### B MP ####[facility] Unuatgjrmr[address] [place], [place] [address]Dr. Farhat Leal Potassium [Moles/Vol] 4.7 mmol/L Normal 3.5-5.1 [facility] Comment on above: Performed By: #### B MP ####[facility] Ckosepegcn[address] [place], [place] [address]Dr. Farhat Leal Sodium [Moles/Vol] 127 mmol/L Critically low 136-145 [facility] Comment on above: Performed By: #### B MP ####[facility] Mphhycuccv1483[address] [place], [place] [address]Dr. Farhat Leal Urea nitrogen [Mass/Vol] 79.0 mg/dL Critically high 7.0-18.0 [facility] Comment on above: Result Comment: repe ated Performed By: #### B MP ####[facility] Sjwqbmrpfl7[address] [place], [place] [address]Dr. Farhat Leal Urea nitrogen/Creatinine [Mass ratio] 41.4 mg/mg Normal [facility] Comment on above: Performed By: #### B MP ####[facility] Rcsojjhyfj2972[address] [place], [place] [address]Dr. Farhat Leal PTT HEPARIN MONITORon 2021 aPTT Coag (Bld) [Time] 42.7 s Normal 39.5-54.2 [facility] Comment on above: Performed By: #### P TTHEP ####[facility] Zbpbsadfja9367[address] [place], [place] [address]Dr. Farhat Leal aPTT Coag (Bld) [Time] 56.7 s Critically high 39.5-54. 2 [facility] Comment on above: Performed By: #### P TTHEP ####[facility] Icyeihyvxj7170[address] [place], [place] [address]Dr. Farhat Leal CBC AUTO DIFFon 09-23-2021 BASO # 0.1 103/ul Normal 0.0-0.1 [facility] Comment on above: Performed By: #### C BC ####[facility] Jlndefmbng[address] [place], [place] [address]Dr. Farhat Leal Basophils/100 WBC (Bld) 0.6 % Normal 0.2-2.0 [facility] Comment on above: Performed By: #### C BC ####[facility] Ippumtwwvd264[address] [place], [place] [address]Dr. Farhat Leal EO # 0.2 103/ul Normal 0.0-0.7 [facility] Comment on above: Performed By: #### C BC ####[facility] Efknzgprlo9826[address] [place], [place] [address]Dr. Farhat Leal Eosinophils/100 WBC (Bld) 2.6 % Normal 0.9-7.0 [facility] Comment on above: Performed By: #### C BC ####[facility] Ljmhwljbvd4750[address] [place], [place] [address]Dr. Farhat Leal Erythrocyte distribution width (RBC) [Ratio] 12.4 % Normal 11.0-15.0 [facility] Comment on above: Performed By: #### C BC ####[facility] Ifkdomjmfz9827[address] [place], [place] [address]Dr. Farhat Leal Hematocrit (Bld) [Volume fraction] 38.4 % Critically low 42.0-54.0 [facility] Comment on above: Performed By: #### C BC ####[facility] Npkjzvrbok1037[address] [place], [place] [address]Dr. Farhat Leal Hemoglobin (Bld) [Mass/Vol] 12.8 g/dL Critically low 14.0-18.0 [facility] Comment on above: Performed By: #### C BC ####[facility] Qzrzxgxdpp8[address] [place], [place] [address]DrSkylar Leal IG # 0.06 10e3/ul Critically high 0.00-0.03 [facility] Comment on above: Performed By: #### C BC ####[facility] Ogtpirpsec[address] [place] [address]DrSkylar Leal IG % 0.8 % Critically high 0.0-0.5 [facility] Comment on above: Performed By: #### C BC ####[facility] Alyervjszb76[address] [place] [address]DrSkylar Leal LYMPH # 1.5 103/ul Normal 1.2-3.8 [facility] Comment on above: Performed By: #### C BC ####[facility] Gfuugqjotc7[address] [place] [address]DrSkylar Leal Lymphocytes/100 WBC (Bld) 19.7 % Critically low 20.5-60.0 [facility] Comment on above: Performed By: #### C BC ####[facility] Iyahyhlolz9[address] [place], [place] [address]DrSkylar Leal MANUAL DIFF REQ NO Normal [facility] Comment on above: Performed By: #### C BC ####[facility] Hacvzikbfj1526[address] [place], [place] [address]DrSkylar Leal MCH (RBC) [Entitic mass] 31.6 pg Normal 25.9-34.0 [facility] Comment on above: Performed By: #### C BC ####[facility] Iyppsawodp75[address] [place] [address]DrSkylar Leal MCHC (RBC) [Mass/Vol] 33.3 g/dL Normal 29.9-35.2 [facility] Comment on above: Performed By: #### C BC ####[facility] Sdgfdrxkuo2[address] [place], [place] [address]DrSkylar Leal MCV (RBC) [Entitic vol] 94.8 fL Critically high 80.0-94.0 [facility] Comment on above: Performed By: #### C BC ####[facility] Rbzasbexlf7562[address] [place], [place] [address]Dr. Farhat Leal MONO # 1.0 103/ul Critically high 0.3-0.8 [facility] Comment on above: Performed By: #### C BC ####[facility] Imppilghpm[address] [place] [id number]. Farhat Leal Monocytes/100 WBC (Bld) 13.0 % Critically high 1.7-12.0 [facility] Comment on above: Performed By: #### C BC ####[facility] Irqfmflrlt1919 [place] [id number]. Farhat Leal NEUT # 4.9 103/ul Normal 1.4-6.5 [facility] Comment on above: Performed By: #### C BC ####[facility] Pbfpasxyjy6283 [place] [id number] Farhat Leal Neutrophils/100 WBC (Bld) 63.3 % Normal 43.0-75.0 [facility] Comment on above: Performed By: #### C BC ####[facility] Egacmeltcd5335[address] [place], [place] [address]Dr. Farhat Leal Platelet mean volume (Bld) [Entitic vol] 10.7 fL Normal 9.5-13.5 [facility] Comment on above: Performed By: #### C BC ####[facility] Dnfzhomgdk[address] [place], [place] [id number]. Farhat Leal PLT 205 103/ul Normal 150-450 [facility] Comment on above: Performed By: #### C BC ####[facility] Ndeasdxbdi25[address] [place] [id number]. Farhat Leal RBC 4.05 106/ul Critically low 4.70-6.10 [facility] Comment on above: Performed By: #### C BC ####[facility] Iyewnrrzps9739 [place] [id number] Farhat Leal WBC 7.7 103/ul Normal 4.0-11.0 [facility] Comment on above: Performed By: #### C BC ####[facility] Ifdsxvewvp0864[address] [place], [place] [address]DrSkylar Leal PROF CHEM 8 (BAS METB)on Anion gap [Moles/Vol] 15.5 mmol/L Normal [facility] Comment on above: Performed By: #### B MP ####[facility] Jfdmjewbpj7687[address] [place], [place] [address]Dr. Madelynlorri Leal Calcium [Mass/Vol] 9.1 mg/dL Normal 8.5-10.1 [facility] Comment on above: Performed By: #### B MP ####[facility] Riaberimfo1577[address] [place], [place] [address]Dr. Farhat Leal Chloride [Moles/Vol] 92 mmol/L Critically low 98-107 [facility] Comment on above: Performed By: #### B MP ####[facility] Hbkxlmzmxb466599 [address] [place], [place] [address]Dr. Farhat Leal CO2 [Moles/Vol] 28.5 mmol/L Normal 21.0-32.0 [facility] Comment on above: Performed By: #### B MP ####[facility] Uohnjudbce7485[address] [place], [place] [address]Dr. Farhat Leal Creatinine [Mass/Vol] 1.84 mg/dL Critically high 0.70-1.30 [facility] Comment on above: Performed By: #### B MP ####[facility] Nbwwwyzoay380[address] [place], [place] [address]Dr. Farhat Leal EGFR-AF BURUNDIAN 44 mL/min/1.73m2 Critically low >=60 [facility] Comment on above: Performed By: #### B MP ####[facility] Pqjcdamgxq232[address] [place], [place] [address]Dr. Farhat Leal EGFR-NON AF BURUNDIAN 36 mL/min/1.73m2 Critically low >=60 [facility] Comment on above: Performed By: #### B MP ####[facility] Qulwaxhoir5594[address] [place], [place] [address]Dr. Farhat Leal Glucose [Mass/Vol] 267 mg/dL Critically high 74-106 T [facility] Comment on above: Performed By: #### B MP ####[facility] Oaksbmjbln9500[address] [place], [place] [address]Dr. Farhat Leal Potassium [Moles/Vol] 5.0 mmol/L Normal 3.5-5.1 [facility] Comment on above: Performed By: #### B MP ####[facility] Ewdeowfaku8522[address] [place], [place] [address]Dr. Farhat Leal Sodium [Moles/Vol] 131 mmol/L Critically low 136-145 [facility] Comment on above: Performed By: #### B MP ####[facility] Hcrgbmkxdb4572[address] [place], [place] [address]Dr. Farhat Leal Urea nitrogen [Mass/Vol] 76.0 mg/dL Critically high 7.0-18.0 [facility] Comment on above: Performed By: #### B MP ####[facility] Ahqncmoyvb96[address] [place], [place] [address]Dr. Farhat Leal Urea nitrogen/Creatinine [Mass ratio] 41.3 mg/mg Normal [facility] Comment on above: Performed By: #### B MP ####[facility] Dtulonppmc4135[address] [place], [place] [address]Dr. Farhat Leal PTT HEPARIN MONITORon 2021 aPTT Coag (Bld) [Time] 57.2 s Critically high 39.5-54. 2 [facility] Comment on above: Performed By: #### P TTHEP ####[facility] Ennvwtezxl1793[address] [place], [place] [address]Dr. Farhat Leal aPTT Coag (Bld) [Time] 74.7 s Critically high 39.5-54. 2 [facility] Comment on above: Result Comment: repe ated Performed By: #### P TTHEP ####[facility] Htlxbluywo6483[address] [place], [place] [address]Dr. Farhat Leal aPTT Coag (Bld) [Time] 45.5 s Normal 39.5-54.2 [facility] Comment on above: Performed By: #### P TTHEP ####[facility] Zynhgzrgji9082[address] [place], [place] [address]Dr. Farhat Leal CBC AUTO DIFFon 09-22-2021 BASO # 0.1 103/ul Normal 0.0-0.1 [facility] Comment on above: Performed By: #### C BC ####[facility] Pkynbpfstt[address] [place] [address]Dr. Farhat Leal Basophils/100 WBC (Bld) 0.7 % Normal 0.2-2.0 [facility] Comment on above: Performed By: #### C BC ####[facility] Qzspadamdm9150 [place] [address]DrSkylar Leal EO # 0.3 103/ul Normal 0.0-0.7 [facility] Comment on above: Performed By: #### C BC ####[facility] Hmaiwbfsff871[address] [place], [place] [address]Dr. Farhat Leal Eosinophils/100 WBC (Bld) 3.2 % Normal 0.9-7.0 [facility] Comment on above: Performed By: #### C BC ####[facility] Jfdwhwerbx4936[address] [place], [place] [address]DrSkylar Leal Erythrocyte distribution width (RBC) [Ratio] 12.5 % Normal 11.0-15.0 [facility] Comment on above: Performed By: #### C BC ####[facility] Ounalnniqh9736[address] [place], [place] [address]Dr. Farhat Leal Hematocrit (Bld) [Volume fraction] 40.5 % Critically low 42.0-54.0 [facility] Comment on above: Performed By: #### C BC ####[facility] Tqmpdjtosr8257[address] [place], [place] [address]Dr. Farhat Leal Hemoglobin (Bld) [Mass/Vol] 13.4 g/dL Critically low 14.0-18.0 [facility] Comment on above: Performed By: #### C BC ####[facility] Dmsouquxbt4893[address] [place], [place] [address]DrSkylar Leal IG # 0.11 10e3/ul Critically high 0.00-0.03 [facility] Comment on above: Performed By: #### C BC ####[facility] Ebaycycrot1286[address] [place], [place] [address]Dr. Farhat Leal IG % 1.3 % Critically high 0.0-0.5 [facility] Comment on above: Performed By: #### C BC ####[facility] Pvoajugyqp5634 [place] [address]DrSkylar Leal LYMPH # 1.7 103/ul Normal 1.2-3.8 [facility] Comment on above: Performed By: #### C BC ####[facility] Zmnfehxvxo2859 [place] [address]DrSkylar Leal Lymphocytes/100 WBC (Bld) 19.6 % Critically low 20.5-60.0 [facility] Comment on above: Performed By: #### C BC ####[facility] Zpuyloxwrd3243[address] [place], [place] [address]DrSkylar Leal MANUAL DIFF REQ NO Normal [facility] Comment on above: Performed By: #### C BC ####[facility] Lgqmfeamiw2904 [place] [address]DrSkylar Leal MCH (RBC) [Entitic mass] 31.1 pg Normal 25.9-34.0 [facility] Comment on above: Performed By: #### C BC ####[facility] Lytyqpnoru[address] [place], [place] [address]DrSkylar Leal MCHC (RBC) [Mass/Vol] 33.1 g/dL Normal 29.9-35.2 [facility] Comment on above: Performed By: #### C BC ####[facility] Nzfopwisjz1871 [place] [address]DrSkylar Leal MCV (RBC) [Entitic vol] 94.0 fL Normal 80.0-94.0 [facility] Comment on above: Performed By: #### C BC ####[facility] Qlbjhhjjej0960[address] [place], [place] [address]DrSkylar Leal MONO # 1.1 103/ul Critically high 0.3-0.8 [facility] Comment on above: Performed By: #### C BC ####[facility] Qgqgqwbfwn2675[address] [place], [place] [address]DrSkylar Leal Monocytes/100 WBC (Bld) 12.7 % Critically high 1.7-12.0 [facility] Comment on above: Performed By: #### C BC ####[facility] Jygiimpvou9371 [place] [address]DrSkylar Farhat Leal NEUT # 5.3 103/ul Normal 1.4-6.5 [facility] Comment on above: Performed By: #### C BC ####[facility] Rhvfxsetgz4931 [place] [address]DrSkylar Farhat Leal Neutrophils/100 WBC (Bld) 62.5 % Normal 43.0-75.0 [facility] Comment on above: Performed By: #### C BC ####[facility] Ohorrparys7552[address] [place], [place] [address]DrSkylar Farhat Elvis Platelet mean volume (Bld) [Entitic vol] 10.1 fL Normal 9.5-13.5 [facility] Comment on above: Performed By: #### C BC ####[facility] Vjajvjuusy01[address] [place], [place] [address]DrSkylar Farhat Leal PLT 220 103/ul Normal 150-450 [facility] Comment on above: Performed By: #### C BC ####[facility] Sbjzseirwz6837[address] [place], [place] [address]DrSkylar Farhat Leal RBC 4.31 106/ul Critically low 4.70-6.10 [facility] Comment on above: Performed By: #### C BC ####[facility] Xhybfyosxl[address] [place], [place] [address]DrSkylar Farhat Elvis WBC 8.4 103/ul Normal 4.0-11.0 [facility] Comment on above: Performed By: #### C BC ####[facility] Uogjpkhhts1614[address] [place], [place] [address]DrSkylar Madelynlorri Leal PROF CHEM 8 (BAS METB)on Anion gap [Moles/Vol] 15.5 mmol/L Normal [facility] Comment on above: Performed By: #### B MP ####[facility] Sroorxlrri0655[address] [place], [place] [address]Dr. Farhat Leal Calcium [Mass/Vol] 8.9 mg/dL Normal 8.5-10.1 [facility] Comment on above: Performed By: #### B MP ####[facility] Nlnciogngw8463 [place] [address]Dr. Farhat Leal Chloride [Moles/Vol] 92 mmol/L Critically low 98-107 [facility] Comment on above: Performed By: #### B MP ####[facility] Rqhwjegyhv6828[address] [place], [place] [address]Dr. Farhat Leal CO2 [Moles/Vol] 25.7 mmol/L Normal 21.0-32.0 [facility] Comment on above: Performed By: #### B MP ####[facility] Nrehrvfazt814[address] [place], [place] [address]Dr. Farhat Leal Creatinine [Mass/Vol] 1.85 mg/dL Critically high 0.70-1.30 [facility] Comment on above: Performed By: #### B MP ####[facility] Meqiijziny9408[address] [place], [place] [address]Dr. Farhat Leal EGFR-AF BURUNDIAN 43 mL/min/1.73m2 Critically low >=60 [facility] Comment on above: Performed By: #### B MP ####[facility] Xkaezamnwi5424[address] [place], [place] [address]Dr. Farhat Leal EGFR-NON AF BURUNDIAN 36 mL/min/1.73m2 Critically low >=60 [facility] Comment on above: Performed By: #### B MP ####[facility] Kqmvdzoqpa86[address] [place] [address]Dr. Farhat Leal Glucose [Mass/Vol] 410 mg/dL Critically high 74-106 [facility] Comment on above: Performed By: #### B MP ####[facility] Xmdbltsyju9296[address] [place], [place] [address]Dr. Farhat Leal Potassium [Moles/Vol] 5.2 mmol/L Critically high 3.5-5.1 [facility] Comment on above: Performed By: #### B MP ####[facility] Yadmbspscl3726[address] [place], [place] [address]Dr. Farhat Leal Sodium [Moles/Vol] 128 mmol/L Critically low 136-145 [facility] Comment on above: Performed By: #### B MP ####[facility] Jrayotdaro847[address] [place], [place] [address]Dr. Farhat Leal Urea nitrogen [Mass/Vol] 75.0 mg/dL Critically high 7.0-18.0 [facility] Comment on above: Performed By: #### B MP ####[facility] Etcmnhjtas3450[address] [place], [place] [address]Dr. Farhat Leal Urea nitrogen/Creatinine [Mass ratio] 40.5 mg/mg Normal [facility] Comment on above: Performed By: #### B MP ####[facility] Oovgkestyz9612[address] [place], [place] [address]Dr. Farhat Leal PTT HEPARIN MONITORon 2021 aPTT Coag (Bld) [Time] 51.2 s Normal 39.5-54.2 [facility] Comment on above: Performed By: #### P TTHEP ####[facility] Laehlqdsis1863[address] [place], [place] [address]Dr. Farhat Leal aPTT Coag (Bld) [Time] 55.6 s Critically high 39.5-54. 2 [facility] Comment on above: Performed By: #### P TTHEP ####[facility] Lsdwylicad1752[address] [place], [place] [address]Dr. Farhat Leal aPTT Coag (Bld) [Time] 46.1 s Normal 39.5-54.2 [facility] Comment on above: Performed By: #### P TTHEP ####[facility] Wrgmxkquep6373[address] [place], [place] [address]Dr. Farhat Leal aPTT Coag (Bld) [Time] 53.8 s Normal 39.5-54.2 [facility] Comment on above: Performed By: #### P TTHEP ####[facility] Zbxgojyflo1668[address] [place], [place] [address]Dr. Farhat Leal CBC AUTO DIFFon 09-21-2021 BASO # 0.1 103/ul Normal 0.0-0.1 [facility] Comment on above: Performed By: #### C BC ####[facility] Feqnktkuuf80[address] [place] [address]Dr. Farhat Leal Basophils/100 WBC (Bld) 0.8 % Normal 0.2-2.0 [facility] Comment on above: Performed By: #### C BC ####[facility] Axaaitbzqq3193[address] [place], [place] [address]Dr. Farhat Leal EO # 0.4 103/ul Normal 0.0-0.7 [facility] Comment on above: Performed By: #### C BC ####[facility] Xasulouqzf6434[address] [place], [place] [address]Dr. Farhat Leal Eosinophils/100 WBC (Bld) 4.3 % Normal 0.9-7.0 [facility] Comment on above: Performed By: #### C BC ####[facility] Dlfaamnomh0103[address] [place], [place] [address]Dr. Farhat Leal Erythrocyte distribution width (RBC) [Ratio] 12.5 % Normal 11.0-15.0 [facility] Comment on above: Performed By: #### C BC ####[facility] Ujslmkdnov6[address] [place], [place] [address]Dr. Farhat Leal Hematocrit (Bld) [Volume fraction] 40.8 % Critically low 42.0-54.0 [facility] Comment on above: Performed By: #### C BC ####[facility] Igghjczzed3034[address] [place], [place] [address]Dr. Farhat Leal Hemoglobin (Bld) [Mass/Vol] 13.5 g/dL Critically low 14.0-18.0 [facility] Comment on above: Performed By: #### C BC ####[facility] Engnxerzgf458[address] [place], [place] [address]Dr. Madelynlorri Elvis IG # 0.10 10e3/ul Critically high 0.00-0.03 [facility] Comment on above: Performed By: #### C BC ####[facility] Hpxsbwasvv3700[address] [place], [place] [address]Dr. Farhat Leal IG % 1.2 % Critically high 0.0-0.5 [facility] Comment on above: Performed By: #### C BC ####[facility] Budevdumat15[address] [place] [address]Dr. Farhat Leal LYMPH # 1.3 103/ul Normal 1.2-3.8 [facility] Comment on above: Performed By: #### C BC ####[facility] Zwdghfmenn57[address] [place] [address]Dr. Madelynlorri Leal Lymphocytes/100 WBC (Bld) 15.4 % Critically low 20.5-60.0 [facility] Comment on above: Performed By: #### C BC ####[facility] Eoiqwlerva4[address] [place] [address]Dr. Farhat Leal MANUAL DIFF REQ NO Normal [facility] Comment on above: Performed By: #### C BC ####[facility] Bffwkfwtak[address] [place] [address]Dr. Farhat Elvis MCH (RBC) [Entitic mass] 31.0 pg Normal 25.9-34.0 [facility] Comment on above: Performed By: #### C BC ####[facility] Lvnucnowob[address] [place] [address]Dr. Farhat Elvis MCHC (RBC) [Mass/Vol] 33.1 g/dL Normal 29.9-35.2 [facility] Comment on above: Performed By: #### C BC ####[facility] Drppzradna[address] [place] [address]DrSkylar Leal MCV (RBC) [Entitic vol] 93.8 fL Normal 80.0-94.0 The [facility] Comment on above: Performed By: #### C BC ####[facility] Fgjeveppkw12[address] [place] [address]DrSkylar Leal MONO # 1.2 103/ul Critically high 0.3-0.8 [facility] Comment on above: Performed By: #### C BC ####[facility] Otaklpnfsp[address] [place] [address]Dr. Farhat Leal Monocytes/100 WBC (Bld) 13.6 % Critically high 1.7-12.0 [facility] Comment on above: Performed By: #### C BC ####[facility] Jwaierpihx34[address] [place] [address]Dr. Farhat Leal NEUT # 5.5 103/ul Normal 1.4-6.5 [facility] Comment on above: Performed By: #### C BC ####[facility] Cxsuyakqmz81[address] [place] [address]Dr. Farhat Leal Neutrophils/100 WBC (Bld) 64.7 % Normal 43.0-75.0 [facility] Comment on above: Performed By: #### C BC ####[facility] Orgxbwvmyp33[address] [place] [address]Dr. Farhat Leal Platelet mean volume (Bld) [Entitic vol] 9.8 fL Normal 9.5-13.5 [facility] Comment on above: Performed By: #### C BC ####[facility] Wqmaeuzyaf89[address] [place] [address]Dr. Farhat Leal PLT 206 103/ul Normal 150-450 [facility] Comment on above: Performed By: #### C BC ####[facility] Wplsezbxey[address] [place], [place] [address]Dr. Farhat Leal RBC 4.35 106/ul Critically low 4.70-6.10 [facility] Comment on above: Performed By: #### C BC ####[facility] Qkrnowigcd4203 [place] [address]Dr. Farhat Leal WBC 8.4 103/ul Normal 4.0-11.0 [facility] Comment on above: Performed By: #### C BC ####[facility] Rpactfvmvj6[address] [place] [address]Dr. Farhat Elvis PROF CHEM 8 (BAS METB)on Anion gap [Moles/Vol] 12.3 mmol/L Normal [facility] Comment on above: Performed By: #### B MP ####[facility] Lvlvcqydqr35[address] [place], [place] [id number]. Farhat Leal Calcium [Mass/Vol] 8.6 mg/dL Normal 8.5-10.1 [facility] Comment on above: Performed By: #### B MP ####[facility] Rnseywieyz64[address] [place] [address]Dr. Farhat Leal Chloride [Moles/Vol] 94 mmol/L Critically low 98-107 [facility] Comment on above: Performed By: #### B MP ####[facility] Rnbuwdbqew9[address] [place], [place] [address]Dr. Farhat Leal CO2 [Moles/Vol] 30.8 mmol/L Normal 21.0-32.0 [facility] Comment on above: Performed By: #### B MP ####[facility] Vmymcvsnsb04[address] [place], [place] [address]Dr. Farhat Leal Creatinine [Mass/Vol] 1.99 mg/dL Critically high 0.70-1.30 [facility] Comment on above: Performed By: #### B MP ####[facility] Shivtgienu6[address] [place], [place] [address]Dr. Farhat Leal EGFR-AF BURUNDIAN 40 mL/min/1.73m2 Critically low >=60 [facility] Comment on above: Performed By: #### B MP ####[facility] Dlwokdbnsk119[address] [place], [place] [address]Dr. Farhat Leal EGFR-NON AF BURUNDIAN 33 mL/min/1.73m2 Critically low >=60 [facility] Comment on above: Performed By: #### B MP ####[facility] Gsheyclyky6[address] [place], [place] [address]Dr. Farhat Leal Glucose [Mass/Vol] 264 mg/dL Critically high 74-106 [facility] Comment on above: Performed By: #### B MP ####[facility] Blpksvxelj2128[address] [place], [place] [address]Dr. Farhat Leal Potassium [Moles/Vol] 5.1 mmol/L Normal 3.5-5.1 [facility] Comment on above: Performed By: #### B MP ####[facility] Eslwnycxao978[address] [place], [place] [address]Dr. Farhat Leal Sodium [Moles/Vol] 132 mmol/L Critically low 136-145 [facility] Comment on above: Performed By: #### B MP ####[facility] Ozqdydncvw8738[address] [place], [place] [address]Dr. Farhat Leal Urea nitrogen [Mass/Vol] 72.0 mg/dL Critically high 7.0-18.0 [facility] Comment on above: Performed By: #### B MP ####[facility] Ctrdhezbco1532[address] [place], [place] [address]Dr. Farhat Leal Urea nitrogen/Creatinine [Mass ratio] 36.2 mg/mg Normal [facility] Comment on above: Performed By: #### B MP ####[facility] Aavzjafzyb1063[address] [place], [place] [address]Dr. Farhat Leal PTT HEPARIN MONITORon 2021 aPTT Coag (Bld) [Time] 45.3 s Normal 39.5-54.2 [facility] Comment on above: Performed By: #### P TTHEP ####[facility] Kspudluaqb415[address] [place], [place] [address]Dr. Madelynlorri Elvis aPTT Coag (Bld) [Time] 68.0 s Critically high 39.5-54. 2 [facility] Comment on above: Performed By: #### P TTHEP ####[facility] Hhfajtipyd2710[address] [place], [place] [address]Dr. Farhat Leal aPTT Coag (Bld) [Time] 69.4 s Critically high 39.5-54. 2 [facility] Comment on above: Performed By: #### P TTHEP ####[facility] Zhgcgpejrt9614[address] [place], [place] [address]Dr. Farhat Leal aPTT Coag (Bld) [Time] 53.5 s Normal 39.5-54.2 [facility] Comment on above: Performed By: #### P TTHEP ####[facility] Didzhfsqnu638[address] [place], [place] [address]Dr. Farhat Leal aPTT Coag (Bld) [Time] 126.9 s Critically high 39.5-54. 2 [facility] Comment on above: Performed By: #### P TTHEP ####[facility] Losypqvmej4[address] [place], [place] [address]Dr. Farhat Leal CBC AUTO DIFFon 09-20-2021 BASO # 0.1 103/ul Normal 0.0-0.1 [facility] Comment on above: Performed By: #### C BC ####[facility] Kfvkxcaang1402[address] [place], [place] [address]Dr. Farhat Leal Basophils/100 WBC (Bld) 0.7 % Normal 0.2-2.0 The [facility] Comment on above: Performed By: #### C BC ####[facility] Aselomelbo189[address] [place], [place] [address]Dr. Farhat Leal EO # 0.2 103/ul Normal 0.0-0.7 [facility] Comment on above: Performed By: #### C BC ####[facility] Aaferlmzno09[address] [place], [place] [address]Dr. Farhat Leal Eosinophils/100 WBC (Bld) 3.2 % Normal 0.9-7.0 [facility] Comment on above: Performed By: #### C BC ####[facility] Vnbpgpayte48[address] [place], [place] [address]Dr. Farhat Leal Erythrocyte distribution width (RBC) [Ratio] 12.4 % Normal 11.0-15.0 [facility] Comment on above: Performed By: #### C BC ####[facility] Xysbiytrhu[address] [place], [place] [address]Dr. Farhat Leal Hematocrit (Bld) [Volume fraction] 40.1 % Critically low 42.0-54.0 [facility] Comment on above: Performed By: #### C BC ####[facility] Sxkjknnhfm39[address] [place], [place] [address]Dr. Farhat Leal Hemoglobin (Bld) [Mass/Vol] 13.4 g/dL Critically low 14.0-18.0 [facility] Comment on above: Performed By: #### C BC ####[facility] Jcrzioyjvs74[address] [place] [id number]. Farhat Leal IG # 0.08 10e3/ul Critically high 0.00-0.03 [facility] Comment on above: Performed By: #### C BC ####[facility] Qexcnrqxhg58[address] [place] [id number]. Farhat Elvis IG % 1.1 % Critically high 0.0-0.5 [facility] Comment on above: Performed By: #### C BC ####[facility] Rnkyvqnssh4[address] [place] [address]Dr. Madelynlorri Elvis LYMPH # 1.3 103/ul Normal 1.2-3.8 [facility] Comment on above: Performed By: #### C BC ####[facility] Cclxodvfwt25[address] [place] [address]Dr. Farhat Leal Lymphocytes/100 WBC (Bld) 17.3 % Critically low 20.5-60.0 [facility] Comment on above: Performed By: #### C BC ####[facility] Cvdpvyjgbc[address] [place] [address]Dr. Madelynlorri Leal MANUAL DIFF REQ NO Normal [facility] Comment on above: Performed By: #### C BC ####[facility] Qtfumdrzzn5[address] [place] [address]Dr. Farhat Elvis MCH (RBC) [Entitic mass] 31.2 pg Normal 25.9-34.0 [facility] Comment on above: Performed By: #### C BC ####[facility] Mbmhbllsql14[address] [place] [address]Dr. Farhat Elvis MCHC (RBC) [Mass/Vol] 33.4 g/dL Normal 29.9-35.2 [facility] Comment on above: Performed By: #### C BC ####[facility] Bgaqftvxci[address] [place] [address]Dr. Farhat Elvis MCV (RBC) [Entitic vol] 93.3 fL Normal 80.0-94.0 [facility] Comment on above: Performed By: #### C BC ####[facility] Zgriubvwbh8[address] [place] [id number]. Farhat Leal MONO # 0.9 103/ul Critically high 0.3-0.8 [facility] Comment on above: Performed By: #### C BC ####[facility] Wzzgmaulmt11[address] [place] [id number]. Farhat Leal Monocytes/100 WBC (Bld) 12.4 % Critically high 1.7-12.0 [facility] Comment on above: Performed By: #### C BC ####[facility] Mioqczmtsk4[address] [place] [id number]. Farhat Leal NEUT # 4.7 103/ul Normal 1.4-6.5 [facility] Comment on above: Performed By: #### C BC ####[facility] Tzthrfkjnw1607 [place] [phone]. Farhat Leal Neutrophils/100 WBC (Bld) 65.3 % Normal 43.0-75.0 [facility] Comment on above: Performed By: #### C BC ####[facility] Nzfdvioedj1573 [place] [phone]. Farhat Leal Platelet mean volume (Bld) [Entitic vol] 9.9 fL Normal 9.5-13.5 The [facility] Comment on above: Performed By: #### C BC ####[facility] Rzpsbomrdp9350 [place] [id number]. Farhat Leal PLT 180 103/ul Normal 150-450 [facility] Comment on above: Performed By: #### C BC ####[facility] Tgsgnwfryw8167 [place] [id number]. Farhat Leal RBC 4.30 106/ul Critically low 4.70-6.10 [facility] Comment on above: Performed By: #### C BC ####[facility] Sepnswivep8950 [place] [id number]. Farhat Leal WBC 7.2 103/ul Normal 4.0-11.0 The [facility] Comment on above: Performed By: #### C BC ####[facility] Rrtmigteaw3759 [place] [phone]. Farhat Leal PTT HEPARIN MONITORon 2021 aPTT Coag (Bld) [Time] 26.7 s Critically low 39.5-54.2 [facility] Comment on above: Performed By: #### P TTHEP ####[facility] Nkextovkfe434[address] [place], [place] [address]Dr. Farhat Leal aPTT Coag (Bld) [Time] 121.0 s Critically high 39.5-54. 2 [facility] Comment on above: Performed By: #### P TTHEP ####[facility] Cfaxfnmiwg5080[address] [place], [place] [address]Dr. Farhat Leal aPTT Coag (Bld) [Time] 27.6 s Critically low 39.5-54.2 The [facility] Comment on above: Performed By: #### P TTHEP ####[facility] Cmiexhzkna9347[address] [place], [place] [address]Dr. Farhat Leal aPTT Coag (Bld) [Time] 139.0 s Critically high 39.5-54. 2 The [facility] Comment on above: Performed By: #### P TTHEP ####[facility] Phdbipgcck9338[address] [place], [place] [address]Dr. Farhat Leal CBC AUTO DIFFon 09-19-2021 BASO # 0.0 103/ul Normal 0.0-0.1 The [facility] Comment on above: Performed By: #### C BC ####[facility] Yfpdasjhcz8490[address] [place], [place] [address]Dr. Farhat Leal Basophils/100 WBC (Bld) 0.5 % Normal 0.2-2.0 The [facility] Comment on above: Performed By: #### C BC ####[facility] Cqmksoxmmg9403[address] [place], [place] [address]Dr. Farhat Leal EO # 0.2 103/ul Normal 0.0-0.7 The [facility] Comment on above: Performed By: #### C BC ####[facility] Jwefxfmisb[address] [place], [place] [address]DrSkylar Leal Eosinophils/100 WBC (Bld) 2.6 % Normal 0.9-7.0 [facility] Comment on above: Performed By: #### C BC ####[facility] Exaytfazdi3722[address] [place], [place] [address]Dr. Farhat Leal Erythrocyte distribution width (RBC) [Ratio] 12.5 % Normal 11.0-15.0 [facility] Comment on above: Performed By: #### C BC ####[facility] Kcomtraolr3443[address] [place], [place] [address]Dr. Farhat Elvis Hematocrit (Bld) [Volume fraction] 39.2 % Critically low 42.0-54.0 The [facility] Comment on above: Performed By: #### C BC ####[facility] Rftvkfyqur1323[address] [place], [place] [address]Dr. Madelynlorri Elvis Hemoglobin (Bld) [Mass/Vol] 13.3 g/dL Critically low 14.0-18.0 [facility] Comment on above: Performed By: #### C BC ####[facility] Fmjvmeudco3620[address] [place], [place] [address]Dr. Madelynlorri Elvis IG # 0.08 10e3/ul Critically high 0.00-0.03 [facility] Comment on above: Performed By: #### C BC ####[facility] Jaikivcwvi5562[address] [place], [place] [address]Dr. Farhat Leal IG % 0.9 % Critically high 0.0-0.5 [facility] Comment on above: Performed By: #### C BC ####[facility] Uimdgfxoox4420[address] [place], [place] [address]DrSkylar Leal LYMPH # 1.5 103/ul Normal 1.2-3.8 The [facility] Comment on above: Performed By: #### C BC ####[facility] Zuhrmtvtwv1356[address] [place], [place] [address]Dr. Farhat Leal Lymphocytes/100 WBC (Bld) 17.2 % Critically low 20.5-60.0 The [facility] Comment on above: Performed By: #### C BC ####[facility] Ienvavsocg1983[address] [place], [place] [address]Dr. Farhat Leal MANUAL DIFF REQ NO Normal [facility] Comment on above: Performed By: #### C BC ####[facility] Ftfxyfzxdq9328 [place] [address]DrSkylar Farhat Elvis MCH (RBC) [Entitic mass] 31.7 pg Normal 25.9-34.0 The [facility] Comment on above: Performed By: #### C BC ####[facility] Hfzdmputwq7914[address] [place], [place] [address]Dr. Farhat Elvis MCHC (RBC) [Mass/Vol] 33.9 g/dL Normal 29.9-35.2 The [facility] Comment on above: Performed By: #### C BC ####[facility] Mtwaajyfhs7438[address] [place], [place] [address]DrSkylar Madelynlorri Leal MCV (RBC) [Entitic vol] 93.3 fL Normal 80.0-94.0 The [facility] Comment on above: Performed By: #### C BC ####[facility] Hjzzvzlrka[address] [place], [place] [address]DrSkylar Leal MONO # 1.2 103/ul Critically high 0.3-0.8 [facility] Comment on above: Performed By: #### C BC ####[facility] Bmyteaykyv9453[address] [place], [place] [address]Dr. Farhat Leal Monocytes/100 WBC (Bld) 13.7 % Critically high 1.7-12.0 The [facility] Comment on above: Performed By: #### C BC ####[facility] Iolvthayfo3193[address] [place], [place] [address]DrSkylar Leal NEUT # 5.5 103/ul Normal 1.4-6.5 The [facility] Comment on above: Performed By: #### C BC ####[facility] Gsvwrglatz2417[address] [place], [place] [address]DrSkylar Leal Neutrophils/100 WBC (Bld) 65.1 % Normal 43.0-75.0 The [facility] Comment on above: Performed By: #### C BC ####[facility] Cvzwzvvgcd167[address] [place], [place] [address]DrSkylar Leal Platelet mean volume (Bld) [Entitic vol] 9.6 fL Normal 9.5-13.5 [facility] Comment on above: Performed By: #### C BC ####[facility] Jmgewibbrm77[address] [place] [address]Dr. Farhat Leal PLT 163 103/ul Normal 150-450 [facility] Comment on above: Performed By: #### C BC ####[facility] Nkrhfcgutw6305 [place] [address]Dr. Farhat Leal RBC 4.20 106/ul Critically low 4.70-6.10 [facility] Comment on above: Performed By: #### C BC ####[facility] Hrffqhxlyq9525 [place] [address]Dr. Farhat Leal WBC 8.4 103/ul Normal 4.0-11.0 [facility] Comment on above: Performed By: #### C BC ####[facility] Zvpvbwpuqq093[address] [place], [place] [address]Dr. Farhat Leal POINT OF CARE GLUCOSEon Glucose [Mass/Vol] 300 mg/dL Critically high 74-106 [facility] Comment on above: Performed By: #### P OCGLUC ####[facility] Udexnbctdl2414[address] [place], [place] [address]Dr. Farhat Leal POTASSIUMon 09-19-2021 Potassium [Moles/Vol] 4.9 mmol/L Normal 3.5-5.1 [facility] Comment on above: Performed By: #### K ####[facility] Crvtpklves5544[address] [place], [place] [address]Dr. Farhat Leal PTT HEPARIN MONITORon 2021 aPTT Coag (Bld) [Time] 23.4 s Critically low 39.5-54.2 [facility] Comment on above: Result Comment: repe ated Performed By: #### P TTHEP ####[facility] Mktgegazoy3026[address] [place], [place] [address]Dr. Farhat Elvis aPTT Coag (Bld) [Time] 101.2 s Critically high 39.5-54. 2 [facility] Comment on above: Performed By: #### P TTHEP ####[facility] Dpqicrynts15[address] [place], [place] [address]Dr. Farhat Elvis aPTT Coag (Bld) [Time] 81.0 s Critically high 39.5-54. 2 [facility] Comment on above: Result Comment: Test Repeated. Critical Value Verified Performed By: #### P TTHEP ####[facility] Blcbukjarg9[address] [place], [place] [address]Dr. Farhat Elvis CBC AUTO DIFFon 09-18-2021 BASO # 0.0 103/ul Normal 0.0-0.1 [facility] Comment on above: Performed By: #### C BC ####[facility] Jbgxjqkfap032[address] [place], [place] [address]Dr. Farhat Leal Basophils/100 WBC (Bld) 0.4 % Normal 0.2-2.0 The [facility] Comment on above: Performed By: #### C BC ####[facility] Gpzthldmpc4[address] [place], [place] [address]Dr. Farhat Leal EO # 0.1 103/ul Normal 0.0-0.7 [facility] Comment on above: Performed By: #### C BC ####[facility] Heuuwijqcq937[address] [place], [place] [address]Dr. Farhat Leal Eosinophils/100 WBC (Bld) 0.8 % Critically low 0.9-7.0 [facility] Comment on above: Performed By: #### C BC ####[facility] Skfxhngesp4026[address] [place], [place] [address]Dr. Farhat Leal Erythrocyte distribution width (RBC) [Ratio] 12.4 % Normal 11.0-15.0 [facility] Comment on above: Performed By: #### C BC ####[facility] Dbmoghetqr[address] [place], [place] [address]Dr. Farhat Leal Hematocrit (Bld) [Volume fraction] 41.7 % Critically low 42.0-54.0 [facility] Comment on above: Performed By: #### C BC ####[facility] Gvlobghbsj0249 [place] [id number]. Farhat Leal Hemoglobin (Bld) [Mass/Vol] 14.1 g/dL Normal 14.0-18.0 [facility] Comment on above: Performed By: #### C BC ####[facility] Xumsrdxxwp3511 [place] [id number]. Farhat Leal IG # 0.06 10e3/ul Critically high 0.00-0.03 [facility] Comment on above: Performed By: #### C BC ####[facility] Nvmiahmjic5649 [place] [id number]. Farhat Leal IG % 0.6 % Critically high 0.0-0.5 [facility] Comment on above: Performed By: #### C BC ####[facility] Zaflypzhcd5[address] [place] [address]Dr. Farhat Leal LYMPH # 0.6 103/ul Critically low 1.2-3.8 [facility] Comment on above: Performed By: #### C BC ####[facility] Mzikrnmgkg0590 [place] [address]Dr. Farhat Leal Lymphocytes/100 WBC (Bld) 6.5 % Critically low 20.5-60.0 [facility] Comment on above: Performed By: #### C BC ####[facility] Dljjjrobye2706 [place] [address]Dr. Farhat Leal MANUAL DIFF REQ NO Normal [facility] Comment on above: Performed By: #### C BC ####[facility] Qwzxoyjdrj4946 [place] [address]Dr. Farhat Leal MCH (RBC) [Entitic mass] 31.6 pg Normal 25.9-34.0 [facility] Comment on above: Performed By: #### C BC ####[facility] Ldfzwqrzze30[address] [place], [place] [address]Dr. Farhat Leal MCHC (RBC) [Mass/Vol] 33.8 g/dL Normal 29.9-35.2 [facility] Comment on above: Performed By: #### C BC ####[facility] Yofxkitgct0747 [place] [phone]. Farhat Leal MCV (RBC) [Entitic vol] 93.5 fL Normal 80.0-94.0 [facility] Comment on above: Performed By: #### C BC ####[facility] Dcscqpsnmd0441 [place] [phone]. Farhat Leal MONO # 1.0 103/ul Critically high 0.3-0.8 [facility] Comment on above: Performed By: #### C BC ####[facility] Tvwckfpsoz4057 [place] [phone]. Farhat Leal Monocytes/100 WBC (Bld) 10.4 % Normal 1.7-12.0 [facility] Comment on above: Performed By: #### C BC ####[facility] Qpogbgqsvs7543 [place] [phone]. Farhat Leal NEUT # 7.8 103/ul Critically high 1.4-6.5 The [facility] [facility] Comment on above: Performed By: #### C BC ####[facility] Pcdcyspukx7122 [place] [id number]. Farhat Leal Neutrophils/100 WBC (Bld) 81.3 % Critically high 43.0-75.0 [facility] Comment on above: Performed By: #### C BC ####[facility] Oxitmkwkqk8838 [place] [phone]. Farhat Leal Platelet mean volume (Bld) [Entitic vol] 9.9 fL Normal 9.5-13.5 The [facility] Comment on above: Performed By: #### C BC ####[facility] Xyrgfjpolq1508 [place] [phone]. Farhat Leal PLT 169 103/ul Normal 150-450 The [facility] Comment on above: Performed By: #### C BC ####[facility] Bsrujfepfk6054 [place] [phone]. Farhat Leal RBC 4.46 106/ul Critically low 4.70-6.10 [facility] Comment on above: Performed By: #### C BC ####[facility] Irtdwowwak1315 [place] [phone]. Farhat Leal WBC 9.6 103/ul Normal 4.0-11.0 The [facility] Comment on above: Performed By: #### C BC ####[facility] Ntxrbzlkbs0480 [place] [phone]. Farhat Leal BASO # 0.0 103/ul Normal 0.0-0.1 The [facility] Comment on above: Performed By: #### C BC ####[facility] Wbikuhufsb6843 [place] [phone]. Farhat Leal Basophils/100 WBC (Bld) 0.4 % Normal 0.2-2.0 The [facility] Comment on above: Performed By: #### C BC ####[facility] Rjioivlwwd7850 [place] [phone]. Farhat Leal EO # 0.1 103/ul Normal 0.0-0.7 The [facility] Comment on above: Performed By: #### C BC ####[facility] Tgpzejzqki4667 [place] [phone]. Farhat Leal Eosinophils/100 WBC (Bld) 1.1 % Normal 0.9-7.0 The [facility] Comment on above: Performed By: #### C BC ####[facility] V[address]ob[address] [place], [place] [id number]. Farhat Leal Erythrocyte distribution width (RBC) [Ratio] 12.6 % Normal 11.0-15.0 The [facility] Comment on above: Performed By: #### C BC ####[facility] Qjqplxqfmj0411 [place] [phone]. Farhat Leal Hematocrit (Bld) [Volume fraction] 40.8 % Critically low 42.0-54.0 The [facility] Comment on above: Performed By: #### C BC ####[facility] Bcoqwlarnv0411 [place] [phone]. Farhat eLal Hemoglobin (Bld) [Mass/Vol] 13.6 g/dL Critically low 14.0-18.0 The [facility] Comment on above: Performed By: #### C BC ####[facility] Excweicpri1185 [place] [phone]. Farhat Leal IG # 0.08 10e3/ul Critically high 0.00-0.03 [facility] Comment on above: Performed By: #### C BC ####[facility] Ukdvuvwwea9515 [place] [phone]. Farhat Leal IG % 0.9 % Critically high 0.0-0.5 [facility] Comment on above: Performed By: #### C BC ####[facility] Pdpfbdoksa1697 [place] [phone]. Farhat Elvis LYMPH # 0.8 103/ul Critically low 1.2-3.8 [facility] Comment on above: Performed By: #### C BC ####[facility] Yyelevszwo87[address] [place] [address]Dr. Farhat Leal Lymphocytes/100 WBC (Bld) 8.7 % Critically low 20.5-60.0 [facility] Comment on above: Performed By: #### C BC ####[facility] Fhizejlwpi6457 [place] [address]Dr. Farhat Leal MANUAL DIFF REQ NO Normal [facility] Comment on above: Performed By: #### C BC ####[facility] Dkkahvlzqr9952 [place] [address]Dr. Farhat Leal MCH (RBC) [Entitic mass] 31.6 pg Normal 25.9-34.0 [facility] Comment on above: Performed By: #### C BC ####[facility] Duftktumvt8476 [place] [address]Dr. Farhat Leal MCHC (RBC) [Mass/Vol] 33.3 g/dL Normal 29.9-35.2 The [facility] Comment on above: Performed By: #### C BC ####[facility] Efqmgppnlm2385 [place] [address]Dr. Farhat Leal MCV (RBC) [Entitic vol] 94.9 fL Critically high 80.0-94.0 [facility] Comment on above: Performed By: #### C BC ####[facility] Cdfmxsnsai1803 [place] [phone]. Farhat Leal MONO # 1.0 103/ul Critically high 0.3-0.8 [facility] Comment on above: Performed By: #### C BC ####[facility] Bjxngvxzjh7063 [place] [phone]. Farhat Leal Monocytes/100 WBC (Bld) 11.3 % Normal 1.7-12.0 The [facility] Comment on above: Performed By: #### C BC ####[facility] Gpfxzsavfx2704 [place] [phone]. Farhat Leal NEUT # 6.9 103/ul Critically high 1.4-6.5 [facility] Comment on above: Performed By: #### C BC ####[facility] Tafrqkitwq3913 [place] [phone]. Farhat Leal Neutrophils/100 WBC (Bld) 77.6 % Critically high 43.0-75.0 The [facility] Comment on above: Performed By: #### C BC ####[facility] Hbbycmxfxp6241 [place] [phone]. Farhat Leal Platelet mean volume (Bld) [Entitic vol] 9.7 fL Normal 9.5-13.5 The [facility] Comment on above: Performed By: #### C BC ####[facility] Dhxcupbywk5054 [place] [phone]. Farhat Leal PLT 171 103/ul Normal 150-450 The [facility] Comment on above: Performed By: #### C BC ####[facility] Ydjchcycwb7836 [place] [phone]. Farhat Leal RBC 4.30 106/ul Critically low 4.70-6.10 [facility] Comment on above: Performed By: #### C BC ####[facility] Yyjddylkll9941 [place] [phone]. Farhat Leal WBC 8.9 103/ul Normal 4.0-11.0 The [facility] Comment on above: Performed By: #### C BC ####[facility] Gdpcfmjywu7227 [place] [address]Dr. Farhat Leal Covid-19 PCR (CVDTB)on SARS-CoV-2 (COVID-19) RNA JOSH+probe Ql (Unsp spec) Not detected Normal NOT DETECTED [facility] Comment on above: Result Comment: When [...] for this test is supported by the [place] of Health and Human Service's declaration that [...] be used). Performed By: #### C VDTBH ####[facility] Zrzkkvhrgt2305 [place] [address]Dr. Farhat Leal PROF 14(COMP METB)on 022 Albumin [Mass/Vol] 2.6 g/dL Critically low 3.4-5.0 [facility] Comment on above: Performed By: #### C MP ####[facility] Ivoswmxrrv5676 [place] [address]Dr. Farhat Leal Albumin/Globulin [Mass ratio] 0.7 {ratio} Normal [facility] Comment on above: Performed By: #### C MP ####[facility] Inkjgicxgd7406 [place] [address]DrSkylar Leal ALP [Catalytic activity/Vol] 88 U/L Normal 46-116 [facility] Comment on above: Performed By: #### C MP ####[facility] Xkqhhyulwb7140 [place] [address]Dr. Farhat Leal ALT [Catalytic activity/Vol] 15 U/L Critically low 16-63 [facility] Comment on above: Performed By: #### C MP ####[facility] Zffmrxtsbi0887 [place] [phone]. Farhat Leal Anion gap [Moles/Vol] 11.7 mmol/L Normal [facility] Comment on above: Performed By: #### C MP ####[facility] Gslnsxtfww1593 [place] [phone]. Farhat Leal AST [Catalytic activity/Vol] 25 U/L Normal 15-37 [facility] Comment on above: Performed By: #### C MP ####[facility] Knolmxtrcm4[address] [place], [place] [address]Dr. Farhat Leal Bilirubin [Mass/Vol] 0.6 mg/dL Normal 0.2-1.0 [facility] Comment on above: Performed By: #### C MP ####[facility] Maafadmtkt[address] [place], [place] [address]Dr. Farhat Leal Calcium [Mass/Vol] 8.9 mg/dL Normal 8.5-10.1 [facility] Comment on above: Performed By: #### C MP ####[facility] Axsfzicfmp15[address] [place], [place] [address]Dr. Farhat Leal Chloride [Moles/Vol] 93 mmol/L Critically low 98-107 [facility] Comment on above: Performed By: #### C MP ####[facility] Imrvwgjnng[address] [place], [place] [address]Dr. Farhat Leal CO2 [Moles/Vol] 28.9 mmol/L Normal 21.0-32.0 [facility] Comment on above: Performed By: #### C MP ####[facility] Wzsllrzmro9[address] [place], [place] [address]Dr. Farhat Leal Creatinine [Mass/Vol] 2.09 mg/dL Critically high 0.70-1.30 [facility] Comment on above: Performed By: #### C MP ####[facility] Zmmtvdqspl52[address] [place], [place] [address]Dr. Farhat Leal EGFR-AF BURUNDIAN 38 mL/min/1.73m2 Critically low >=60 [facility] Comment on above: Performed By: #### C MP ####[facility] Wntzflehqb3902 [place] [address]Dr. Farhat Elvis EGFR-NON AF BURUNDIAN 31 mL/min/1.73m2 Critically low >=60 [facility] Comment on above: Performed By: #### C MP ####[facility] Xtqqrkouza68[address] [place], [place] [address]Dr. Madelynlorri Elvis Globulin (S) [Mass/Vol] 3.7 g/dL Normal [facility] Comment on above: Performed By: #### C MP ####[facility] Xjmsttscqn5[address] [place], [place] [address]Dr. Farhat Leal Glucose [Mass/Vol] 214 mg/dL Critically high 74-106 T [facility] Comment on above: Performed By: #### C MP ####[facility] Lazgtznihp57[address] [place], [place] [address]Dr. Farhat Leal Potassium [Moles/Vol] 5.6 mmol/L Critically high 3.5-5.1 [facility] Comment on above: Performed By: #### C MP ####[facility] Cjbfozdiag1918[address] [place], [place] [address]Dr. Farhat Leal Protein [Mass/Vol] 6.3 g/dL Critically low 6.4-8.2 [facility] Comment on above: Performed By: #### C MP ####[facility] Caifuixjbw9314[address] [place], [place] [address]Dr. Farhat Leal Sodium [Moles/Vol] 128 mmol/L Critically low 136-145 [facility] Comment on above: Performed By: #### C MP ####[facility] Pxhuezqifk20[address] [place], [place] [address]Dr. Farhat Leal Urea nitrogen [Mass/Vol] 65.0 mg/dL Critically high 7.0-18.0 [facility] Comment on above: Performed By: #### C MP ####[facility] Gbtsksmikx8[address] [place], [place] [address]Dr. Farhat Leal Urea nitrogen/Creatinine [Mass ratio] 31.1 mg/mg Normal [facility] Comment on above: Performed By: #### C MP ####[facility] Exxlmxeyuk262[address] [place], [place] [address]Dr. Farhat Elvis Albumin [Mass/Vol] 2.5 g/dL Critically low 3.4-5.0 Th e [facility] Comment on above: Performed By: #### T MYRIAM, CMP ####[facility] Plkqsimsuf12[address] [place], [place] [address]Dr. Farhat Elvis Albumin/Globulin [Mass ratio] 0.7 {ratio} Normal [facility] Comment on above: Performed By: #### T MYRIAM, CMP ####[facility] Alsbevpmso22[address] [place], [place] [address]Dr. Madelynlorri Leal ALP [Catalytic activity/Vol] 83 U/L Normal 46-116 The [facility] Comment on above: Performed By: #### T MYRIAM, CMP ####[facility] Ffjgpodmjd450[address] [place], [place] [address]Dr. Farhat Elvis ALT [Catalytic activity/Vol] 16 U/L Normal 16-63 The [facility] Comment on above: Performed By: #### T MYRIAM, CMP ####[facility] Mwxbwrbetm29[address] [place], [place] [address]Dr. Madelynlorri Elvis Anion gap [Moles/Vol] 9.7 mmol/L Normal [facility] Comment on above: Performed By: #### T MYRIAM, CMP ####[facility] Fndclmjgqm2386[address] [place], [place] [address]Dr. Madelynlorri Leal AST [Catalytic activity/Vol] 27 U/L Normal 15-37 The [facility] Comment on above: Performed By: #### T MYRIAM, CMP ####[facility] Njmjpgwmrx013[address] [place], [place] [address]Dr. Farhat Leal Bilirubin [Mass/Vol] 0.5 mg/dL Normal 0.2-1.0 [facility] Comment on above: Performed By: #### T MYRIAM, CMP ####[facility] Rbkhtbooxn[address] [place], [place] [address]Dr. Farhat Leal Calcium [Mass/Vol] 8.8 mg/dL Normal 8.5-10.1 [facility] Comment on above: Performed By: #### T MYRIAM, CMP ####[facility] Iyymjlzban93[address] [place], [place] [address]Dr. Farhat Leal Chloride [Moles/Vol] 95 mmol/L Critically low 98-107 The [facility] Comment on above: Performed By: #### T MYRIAM, CMP ####[facility] Yghthkdqqm8[address] [place], [place] [address]Dr. Farhat Leal CO2 [Moles/Vol] 30.5 mmol/L Normal 21.0-32.0 [facility] Comment on above: Performed By: #### T MYRIAM, CMP ####[facility] Lhjxzubltn[address] [place], [place] [address]Dr. Farhat Leal Creatinine [Mass/Vol] 2.18 mg/dL Critically high 0.70-1.30 [facility] Comment on above: Performed By: #### T MYRIAM, CMP ####[facility] Eacwuogmbo5[address] [place], [place] [address]Dr. Farhat Leal EGFR-AF BURUNDIAN 36 mL/min/1.73m2 Critically low >=60 [facility] Comment on above: Performed By: #### T MYRIAM, CMP ####[facility] Tfmzpupiut98[address] [place], [place] [address]Dr. Farhat Leal EGFR-NON AF BURUNDIAN 30 mL/min/1.73m2 Critically low >=60 [facility] Comment on above: Performed By: #### T MYRIAM, CMP ####[facility] Ajwukfuzsu4[address] [place], [place] [address]Dr. Farhat Leal Globulin (S) [Mass/Vol] 3.5 g/dL Normal [facility] Comment on above: Performed By: #### T MYRIAM, CMP ####[facility] Hqreigpouw8235[address] [place], [place] [address]Dr. Farhat Leal Glucose [Mass/Vol] 141 mg/dL Critically high 74-106 [facility] Comment on above: Performed By: #### T MYRIAM, CMP ####[facility] Kbzdmgnhdt6[address] [place], [place] [address]Dr. Farhat Leal Potassium [Moles/Vol] 5.2 mmol/L Critically high 3.5-5.1 [facility] Comment on above: Performed By: #### T MYRIAM, CMP ####[facility] Avanhydvuh[address] [place], [place] [address]Dr. Farhat Leal Protein [Mass/Vol] 6.0 g/dL Critically low 6.4-8.2 [facility] Comment on above: Performed By: #### T MYRIAM, CMP ####[facility] Cgtfmviene[address] [place], [place] [address]Dr. Farhat Leal Sodium [Moles/Vol] 130 mmol/L Critically low 136-145 [facility] Comment on above: Performed By: #### T MYRIAM, CMP ####[facility] Iosqquzdkt36[address] [place], [place] [address]Dr. Farhat Leal Urea nitrogen [Mass/Vol] 63.0 mg/dL Critically high 7.0-18.0 [facility] Comment on above: Performed By: #### T MYRIAM, CMP ####[facility] Uiznktxbbq8[address] [place], [place] [address]Dr. Farhat Leal Urea nitrogen/Creatinine [Mass ratio] 28.9 mg/mg Normal [facility] Comment on above: Performed By: #### T MYRIAM, CMP ####[facility] Xgrgvjhxxn68[address] [place], [place] [address]Dr. Farhat Leal PROTIMEon 09-18-2021 INR Coag (PPP) [Relative time] 1.06 {INR} Normal [facility] Comment on above: Performed By: #### P T, PTT ####[facility] Ifcyruottp8[address] [place], [place] [address]Dr. Farhat Leal INR GUIDELINES SEE BELOW Normal [facility] Comment on above: Result Comment: MALINA RED INR: 2.0 - 3.0 CONDITIONS NOT LISTED BELOW 2.5 - 3.5 FOR PROSTHETIC HEART VALVE REPLACEMENT 2.5 - 3.5 RECURRENT THROMBOSIS Performed By: #### P T, PTT ####[facility] Esxoyljdok5[address] [place], [place] [address]Dr. Farhat Leal PT Coag (PPP) [Time] 11.4 s Normal 9.0-11.6 [facility] Comment on above: Performed By: #### P T, PTT ####[facility] Ueisliatbq2750 [place], [place] [address]Mi. Farhat Leal PTTon 09-18-2021 aPTT Coag (Bld) [Time] 27.9 s Normal 22.3-36.2 [facility] Comment on above: Performed By: #### P T, PTT ####[facility] Fptcdslmjm1241 [place], [place] [address]Fh. Farhat Leal TSHon 09-18-2021 TSH 7.099 uIU/mL Critically high 0.358-3.740 [facility] Comment on above: Performed By: #### T SH, CMP ####[facility] Cnzrrnmzou9739 [place] [id number]. Farhat Leal US SALOME DOP LEG RTon 09-19-19 22 US SALOME DOP LEG RT Normal [facility] XR CHEST 1 Von 09-18-2021 XR CHEST 1 V Normal [facility] XR HIP RT 2 3V W PELVISon XR HIP RT 2 3V W PELVIS Normal [facility] Vital Signs Date Time Vital Sign Value Performing Clinician Facility 07-20-2022 13:35-0400 Body temperature 97.4 [degF] DO Devon Ball Work Phone: [facility] 07-20-2022 13:35-0400 Diastolic blood pressure 50 mm[Hg] DO Devon Ball Work Phone: [facility] 07-20-2022 13:35-0400 Heart rate 67 /min DO Devon Ball Work Phone: [facility] 07-20-2022 13:35-0400 Respiratory rate 20 /min DO Devon Ball Work Phone: [facility] 07-20-2022 13:35-0400 Systolic blood pressure 98 mm[Hg] DO Devon Ball Work Phone: [facility] 06-29-2022 14:46-0400 Body height 193.04 cm DO Devon Moreira Work Phone: [facility] 02-26-2022 13:11-0500 Body temperature 96.6 [degF] Hina Peterson MD Work Phone: [facility] 02-26-2022 13:11-0500 Diastolic blood pressure 75 mm[Hg] Hina Peterson MD Work Phone: [facility] 02-26-2022 13:11-0500 Heart rate 75 /min Hina Peterson MD Work Phone: [facility] 02-26-2022 13:11-0500 Systolic blood pressure 88 mm[Hg] Hina Peterson MD Work Phone: [facility] 02-05-2022 08:29-0500 Body temperature 96.69 [degF] [facility] Work Phone: [facility] 02-05-2022 08:29-0500 Diastolic blood pressure 42 mm[Hg] [facility] Work Phone: [facility] 02-05-2022 08:29-0500 Heart rate 79 /min [facility] Work Phone: [facility] 02-05-2022 08:29-0500 SaO2% (BldA) [Mass fraction] 100 % [facility] Work Phone: [facility] 02-05-2022 08:29-0500 Systolic blood pressure 72 mm[Hg] [facility] Work Phone: [facility] 01-12-2022 11:00-0500 Diastolic blood pressure 54 mm[Hg] Alissa Major 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 Work Phone: [facility] 01-12-2022 11:00-0500 Heart rate 88 /min Alissa Major 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 Work Phone: [facility] 01-12-2022 11:00-0500 SaO2% (BldA) [Mass fraction] 93 % Alissa Major 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 Work Phone: [facility] 01-12-2022 11:00-0500 Systolic blood pressure 96 mm[Hg] [facility] 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 Work Phone: [facility] 01-12-2022 10:12-0500 Body temperature 97.9 [degF] [facility] 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 Work Phone: [facility] 01-12-2022 10:12-0500 Respiratory rate 18 /min [facility] 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 Work Phone: [facility] 11-17-2021 15:59-0400 Body height 193 cm No Reeder DO Work Phone: [facility] 11-17-2021 15:59-0400 Body weight 111.58 kg No Reeder DO Work Phone: [facility] 11-17-2021 15:59-0400 Diastolic blood pressure 59 mm[Hg] No Reeder DO Work Phone: [facility] 11-17-2021 15:59-0400 Heart rate 86 /min No Reeder DO Work Phone: [facility] 11-17-2021 15:59-0400 SaO2% (BldA) [Mass fraction] 97 % No Reeder DO Work Phone: [facility] 11-17-2021 15:59-0400 Systolic blood pressure 104 mm[Hg] No Reeder DO Work Phone: [facility] Encounters Encounter Date Encounter Type Care Provider Facility Start: 02-17-2023 End: 02-17-2023 ambulatory Devon Moreira Other [facility] Other Start: 02-17-2023 Telephone encounter Devon Moreira [facility] Start: 01-14-2023 End: 01-14-2023 ambulatory Devon Moreira Other [facility] Other Start: 01-14-2023 Sbsq nursing facil c are/day minor complj 15 min Devon Moreira [facility] Start: 12-10-2022 End: 12-10-2022 ambulatory Devon Moreira Other [facility] Other Start: 12-10-2022 Sbsq nursing facil c are/day minor complj 15 min Devon Lillie [facility] Start: 11-12-2022 End: 11-12-2022 ambulatory Devon Moreira Other [facility] Other Start: 11-12-2022 Sbsq nursing facil c are/day minor complj 15 min [facility] Start: 10-16-2022 Refill Asia Pike MD Work Phone[facility] Comment on above: Med Change Request Start: 10-12-2022 End: 10-12-2022 ambulatory Devon Moreira Other [facility] Other Start: 10-12-2022 Telephone encounter Devon Moreira [facility] Start: 10-08-2022 End: 10-08-2022 ambulatory Devon Moreira Other [facility] Other Start: 10-08-2022 Sbsq nursing facil c are/day new problem 25 min [facility] Start: 09-22-2022 [facility] [place] Comment on above: Rx Refills Start: 09-10-2022 End: 09-10-2022 ambulatory Devon Moreira Other [facility] Other Start: 09-10-2022 Sbsq nursing facil c are/day new problem 25 min Devon Moreira [facility] Start: 09-09-2022 End: 09-09-2022 ambulatory [facility] Start: 08-06-2022 End: 08-06-2022 ambulatory Devon Moreira Other [facility] Other Start: 08-06-2022 Sbsq nursing facil c are/day new problem 25 min [facility] Start: 07-22-2022 End: 07-22-2022 ambulatory Devon Moreira Other [facility] Other Start: 07-22-2022 Telephone encounter Devon NUNEZ [facility] Start: 07-20-2022 End: 07-20-2022 ambulatory Sadia Aguilar Facility:[facility] Start: 07-20-2022 End: 07-20-2022 ambulatory DO Devon Moreira Work Phone: [facility] Work Phone: Start: 07-20-2022 End: 07-20-2022 Discharged Recurring DO Devon Moreira Work Phone: [facility] [employer] Work Phone: Start: 07-13-2022 End: 07-13-[address] DEVON MOREIRA Facility:[facility] Start: 07-10-2022 End: 07-10-[address] DEVON MOREIRA Facility:[facility] Start: 07-03-2022 End: 07-03-[address] DEVON MOREIRA Facility:[facility] Start: 06-26-2022 End: 06-26-[address] DEVON MOREIRA Facility:[facility] Start: 06-26-2022 End: 06-26-[address] DEVON MOREIRA Facility:[facility] Start: 06-25-2022 End: 06-25-2022 ambulatory Devon Moreira Other [facility] Other Start: 06-25-2022 Sbsq nursing facil c are/day minor complj 15 min Devon Moreira [facility] Start: 06-19-2022 End: 06-19-[address] DEVON MOREIRA Facility:[facility] Start: 06-15-2022 End: 07-15-2022 ambulatory SHAIKH Kate MURRAY Facility:[facility]1 Start: 06-12-2022 End: 06-12-[address] DOCTOR WALSH Facility:[facility]1 Start: 06-05-2022 Sbsq nursing facil c are/day new problem 25 min Devon Moreira [facility] Start: 06-05-2022 End: 06-05-[address] DEVON MOREIRA [facility] [employer] Other Start: 05-29-2022 End: 05-29-[address] DEVON MOREIRA Facility:[facility]1 Start: 05-22-2022 End: 05-22-[address] DEVON MOREIRA Facility:[facility]1 Start: 05-20-2022 End: 05-20-[address] DEVON MOREIRA Facility:[facility]1 Start: 05-18-2022 End: 06-12-2022 ambulatory SHAIKH Kate MURRAY Facility:[facility]1 Start: 05-15-2022 End: 05-15-[address] DEVON MOREIRA Facility:[facility]1 Start: 05-13-2022 End: 05-13-2022 ambulatory Van Olivarez 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 Work Phone: Kidney Medicine [facility] Comment on above: results Start: 05-13-2022 E-mail encounter fro m caregiver Van Olivarez APRN.SUPPLEMENTAL MANAGER Work Phone: [facility] Start: 05-08-2022 End: 05-08-[address] DEVON MOREIRA Facility:[facility]1 Start: 05-07-2022 End: 05-07-2022 ambulatory Devon Moreira Other [facility] [employer] Other Start: 05-07-2022 Sbsq nursing facil c are/day new problem 25 min Devon Moreira [facility] Start: 05-06-2022 End: 05-06-[address] [...] MOREIRA Facility:[facility]1 Start: 04-02-2022 ambulatory Van cortes 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 Work Phone: Kidney Medicine [facility] [place] Start: 04-01-2022 End: 04-01-[address] DEVON MOREIRA Facility:[facility]1 Start: 03-22-2022 Refill Asia Pike MD Work Phone: Transplant Center Comment on above: Med Change Request Start: 03-21-2022 ambulatory SHAIKH Kate MURRAY Facilit y:H1 Start: 03-11-2022 End: 03-11-[address] DEVON MOREIRA Facility:[facility]1 Start: 03-10-2022 End: 03-10-2022 ambulatory [facility] Start: 02-27-2022 Refill Samira Serna [facility] Comment on above: Rx Refills Start: 02-26-2022 End: 02-26-2022 ambulatory DEVON MOREIRA Facility:[facility] Start: 02-26-2022 End: 02-26-2022 Patient encounter procedure Hina Peterson MD Work Phone: Vascular Surg Dept Comment on above: Hx of BKA, right (HC C) (Primary Dx); PAD (peripheral artery disease) (HCC); 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); Type II or unspecified type diabetes mellitus [...] Telephone encounter Devon Moreira DO Work Phone: NOC Comment on above: Appointment Refill Request Start: 02-05-2022 End: 02-06-[address] DEVON MOREIRA Facility:[facility]1 Start: 02-05-2022 End: 02-06-2022 ambulatory ARTUR CHEN Facility:[facility] Start: 02-05-2022 End: 02-05-2022 Patient encounter procedure [facility] Work Phone: Transplant Center Comment on above: Kidney replaced by t ransplant (Primary Dx); 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; 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 Start: 01-26-2022 End: 01-26-[address] DEVON MOREIRA Facility:[facility]1 Start: 01-20-2022 Telephone encounter Van Olivarez APRN.SUPPLEMENTAL MANAGER Work Phone: Kidney Medicine [facility] Comment on above: Results Start: 01-19-2022 End: 01-19-[address] DEVON MOREIRA Facility:[facility]1 Start: 01-16-2022 ambulatory SHAIKH Kate MURRAY Facilit y:[facility]1 Start: 01-12-2022 End: 01-12-2022 Subsequent hospital visit by physician Alissa Chavira APRN.SUPPLEMENTAL MANAGER Work Phone: Angio Comment on above: ILIANA (acute kidney in jury) (HCC) [N17.9] Start: 12-30-2021 End: 12-30-2021 ambulatory Paresh Fonseca MD Work Phone: Infectious Disease Comment on above: MRSA bacteremia (Arabella munira Dx); Diabetic foot ulcer with osteomyelitis (HCC) Start: 12-30-2021 End: 12-30-2021 Telemedicine consultation with patient Paresh Fonseca MD Work Phone: [facility] Start: 12-29-2021 End: 12-29-2021 [...] [facility] Start: 12-08-2021 Orders Only Artur Jennyfer ry 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 Work Phone: Transplant Center Comment on above: Kidney replaced by t ransplant (Primary Dx) Start: 12-07-2021 ambulatory Paresh Fonseca MD Work Phone: [facility] Comment on above: CoPat Start (copat s top 12/27/21) Start: 12-05-2021 Telephone encounter Paresh Fonseca MD Work Phone: Infectious Disease Comment on above: Patient Update (evus held discussion/) Start: 12-01-2021 Follow-up encounter [facility] Provider [facility] Start: 12-01-2021 Patient encounter procedure [facility] Prov ider [facility] Department Start: 11-23-2021 End: 11-28-2021 Evaluation [...] management encounter Start: 11-14-2021 End: 11-15-2021 ambulatory [facility] Facility:[facility]1 Start: 10-24-2021 End: 11-15-2021 ambulatory DIAMOND Kate THOMPSONLIZZY Facility:[facility]1 Start: 10-22-2021 End: 10-23-2021 ambulatory [facility] Facility:[facility]1 Start: 10-06-2021 ambulatory Van cortes 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 Work Phone: [facility] Start: 09-30-2021 Refill Asia Pike MD Work Phone: [facility] Comment on above: Refill Request Start: 09-19-2021 End: 09-24-2021 Evaluation and management of inpatient DR PROSPER LEES Facility:[facility]1 Start: 09-18-2021 End: 09-19-[address] DEVON MOREIRA Facility:[facility]1 Start: 07-11-2021 Refill Asia Pike MD Work Phone: [facility] Comment on above: Refill Request Start: 06-05-2021 Telephone encounter Van Olivarez 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 Work Phone: [facility] Comment on above: Results Start: 02-05-2021 End: 02-13-2021 ambulatory UNKNOWN PROVIDER Facility:[facility] Procedures Date Procedure Procedure Detail Performing Clinician Start: 02-05-2022 Creatinine other source Asia Pike MD Work Phone: Start: 02-05-2022 Urnls dip stick/tabl et rgnt auto w/o microscopy Asia Pike MD Work Phone: Start: 01-12-2022 Prothrombin time Alissa Chavira 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 Work Phone: Start: 12-01-2021 PACEMAKER CLINIC CHECK [facility] Provider Start: 11-29-2021 Microscopic examinat ion of blood, culture DR PROSPER LEES Comment on above: Performed By: #### B [id number] ####[facility] [id number] [place], [place] [address]Ms. Madelynlorri Leal Start: 11-27-2021 Insertion of Infusio n [...] renal transplant KIDNEY TRANSPLANT STATUS Van Olivarez SUPERVISOR [employer]ASHIERS.[facility] Work Phone: History of renal transplant Kidney replaced by transplant Artur Leesjasvir 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 Work Phone: History of renal transplant Kidney replaced by transplant [facility] Work Phone: History of renal transplant Devon Ball Other History of renal transplant Kidney replaced by transplant Asia Pike MD Work Phone: Plan of Treatment Date Care Activity Detail Author Start: 02-26-2023 BP CONTROLLED (<130/80) BP CONTROLLE D (<130/80) [facility] Start: 02-05-2023 BP CONTROLLED (<130/80) BP CONTROLLE D (<130/80) [facility] Start: 01-12-2023 BP CONTROLLED (<130/80) BP CONTROLLE D (<130/80) [facility] Start: 11-17-2022 BP CONTROLLED (<130/80) BP CONTROLLE D (<130/80) [facility] Start: 10-16-2022 Influenza vaccination [facility] Start: 04-08-2022 BP CONTROLLED (<130/80) BP CONTROLLE D (<130/80) [facility] Start: 02-15-2022 ADVANCE DIRECTIVE DISCUSSION ADVANCE DIRECTIVE DISCUSSION [facility] Start: 02-15-2022 DEPRESSION ASSESSMENT DEPRESSION ASS ESSMENT [facility] Start: 02-05-2022 COVID-19 VACCINE (5 - Yung risk series) COVID-19 VACCINE (5 - Yung risk series) [facility] Start: 11-27-2021 COVID-19 VACCINE (4 - Booster for Yung series) COVID-19 VACCINE (4 - Booster for Yung series) [facility] Start: 11-04-2021 Hemoglobin A1c/Hemoglobin.total in Blood HBA1C [facility] Start: 10-16-2021 Influenza vaccination [facility] Start: 03-26-2021 COVID-19 VACCINE (3 - Yung risk 3-dose series) COVID-19 VACCINE (3 - Yung risk 3-dose series) [facility] Start: 03-26-2021 COVID-19 VACCINE (3 - Yung risk series) COVID-19 VACCINE (3 - Yung risk series) [facility] Start: 02-15-2021 ADVANCE DIRECTIVE DISCUSSION ADVANCE DIRECTIVE DISCUSSION [facility] Start: 02-15-2021 DEPRESSION ASSESSMENT DEPRESSION ASS ESSMENT [facility] Start: 01-05-2016 Hepatitis B screening URINE AL BUMIN:CREATININE RATIO [facility] Start: 04-06-2015 Hemoglobin A1c/Hemoglobin.total in Blood HBA1C [facility] Start: 11-22-2010 Hepatitis B surface antibody level LDL CHOLESTEROL [facility] Start: 2009 ADULT PREVNAR-13 ADULT PREVNAR-13 Cl [facility] Start: 2009 PNEUMOVAX AGE 65 AND OVER WITH 5YR LOOKBACK (#1) PNEUMOVAX AGE 65 AND OVER WITH 5YR LOOKBACK (#1) [facility] Start: 1994 SHINGRIX VACCINE (1 of 2) SHINGRIX VACCINE (1 of 2) [facility] Start: 10-18-1963 HEPATITIS A (1 of 2 - Risk 2-dose series) HEPATITIS A (1 of 2 - Risk 2-dose series) [facility] Start: 10-18-1963 Hepatitis A Vaccine (1 of 2 - Risk 2-dose series) Hepatitis A Vaccine (1 of 2 - Risk 2-dose series) [facility] Start: 10-18-1963 SHINGRIX VACCINE (1 of 2) SHINGRIX VACCINE (1 of 2) [facility] Start: 10-18-1963 Urine microalbumin profile [facility] Start: 1962 ANNUAL PCP TEAM 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 SCIENCE 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 MATTHEW DISEASE VISIT ANNUAL PCP TEAM CHRONIC DISEASE VISIT [facility] Start: 1956 Adult depression screening assessment DEPRESSION SCREENING [facility] Start: 1954 3 comp foot exam completed DIABETIC FOOT EXAM [facility] Start: 1954 Hepatitis C antibody , confirmatory test DILATED RETINAL EXAM [facility] Start: 1950 Pneumococcal Vaccine : 65+ (1 - PCV) Pneumococcal Vaccine: 65+ (1 - PCV) [facility] Start: 1950 PNEUMOCOCCAL: 65+ (1 - PCV) PNEUMOCOCCAL: 65+ (1 - PCV) [facility] Start: 1945 HEPATITIS A (1 of 2 - Risk 2-dose series) HEPATITIS A (1 of 2 - Risk 2-dose series) [facility] URINALYSIS, REFLEX MICROSCOPIC URINALYSIS, REFLEX MICROSCOPIC Lab Routine Screening for genitourinary condition Ordered: 10/06/2021 [facility] Work Phone: Comment on above: Ordered: 10/06/2021 URINALYSIS, REFLEX MICROSCOPIC URINALYSIS, REFLEX MICROSCOPIC Lab Routine Screening for genitourinary condition Ordered: 04/02/2022 [facility] Work Phone: Comment on above: Ordered: 04/02/2022 End: 11-17-2022 US LEG ARTERIAL PERIPH UNL VAS LAB US LEG ARTERIAL PERIPH UNL VAS LAB Vascular Lab Routine PAD (peripheral artery disease) (HCC) Nonhealing ulcer of heel (HCC) 1 Occurrences starting 11/17/2021 until 11/17/2022 [facility] Work Phone: Comment on above: 1 Occurrences starti ng 11/17/2021 until 11/17/2022 End: 11-17-2022 US LEG VEIN DVT UNL VAS LAB US LEG VEIN DVT UNL VAS LAB Vascular Lab Routine Acute deep vein thrombosis (DVT) of proximal end of right lower extremity (HCC) 1 Occurrences starting 11/17/2021 until 11/17/2022 [facility] Work Phone: Comment on above: 1 Occurrences starti ng 11/17/2021 until 11/17/2022 [facility] BROTH[facility] CT & VAS BROTHERS CT & VAS [facility] Immunizations Immunization Date Immunization Notes Care Provider Fa [facility] 12-11-2021 COVID-19 booster vaccine, age 12+ yr, bivalent (PFIZER-BIONTECH) Paresh Fonseca MD Work Phone: [facility] 12-11-2021 influenza, high-dose , quadrivalent vaccine (FLUZONE HIGH DOSE QUADRIVALENT) Paresh Fonseca MD Work Phone: [facility] 12-11-2021 influenza virus vaccine, unspecified formulation Ariadna TCM [facility] 03-09-2011 influenza virus vaccine, unspecified formulation Van Olivarez 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 Work Phone: [facility] 12-17-2007 influenza virus vaccine, unspecified formulation Van Sher 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 Work Phone: [facility] Work Phone: 02-11-2006 influenza virus vaccine, unspecified formulation Van Sher 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 Work Phone: [facility] Work Phone: 12-07-2003 influenza virus vaccine, unspecified formulation Vanbetzy Olivarez 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 Work Phone: [facility] Work Phone: 12-07-2003 pneumococcal polysaccharide vaccine, 23 valent Van Olivarez 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 Work Phone: [facility] Work Phone: NEGATED: Highlighted row has not occurred!12-10-2021 COVID-19 booster vaccine, age 12+ yr, bivalent (PFIZER-BIONTNoRedInk) Paresh Fonseca MD Work Phone: [facility] NEGATED: Highlighted row has not occurred!12-10-2021 influenza, high-dose, quadrivalent vaccine (FLUZONE HIGH DOSE QUADRIVALENT) Paresh Fonseca MD Work Phone: [facility] Payers Date Payer Category Payer Medicare MEDICARE MEDICAR E A AND B [id number] 2009-Present [phone] [place] [address] Medicare [id number] 2009 Medicare MEDICARE MEDICAR E A AND B [id number] 2009-Present [phone] [place] [address] Medicare [id number] 2009 Unknown [employer] [place] [employer] [place] MEDIC[place] SUPPLEMENT [id number] 2009-Present [phone] [address] [place] [address] Indemnity [id number] [id number] 2009 Unknown [employer] [place] [employer] [place] MEDICARE SUPPLEMENT [id number] 2009-Present [phone] [address] [place] [address] Indemnity [id number] [id number] 2009 Unknown [id number] 2.16.8 [id number] 2009 Unknown [id number] 1959 Medicare [id number] 1959 Self-pay 1944 Unknown [id number] 2.16.840.1.147282.3.579.2.732 1944 Unknown [id number] 2.16.840.1.881521.3.579.2.593 1944 Unknown [id number] 2.16.840.1.396351.3.579.2.593 1944 Unknown [id number] 2.16.840.1.386189.3.579.2.593 1944 Unknown [id number] 2.16.840.1.899358.3.579.2.593 1944 Unknown [id number] 2.16.840.1.944839.3.579.2.593 1944 Unknown [id number] 2.16.840.1.138524.3.579.2.593 1944 Unknown [id number] 2.16.840.1.128140.3.579.2.593 1944 Unknown [id number] 2.16.840.1.918849.3.579.2.593 1944 Unknown [id number] 2.16.840.1.627330.3.579.2.593 1944 Unknown [id number] 2.16.840.1.320522.3.579.2.593 1944 Unknown [id number] 2.16.840.1.423141.3.579.2.593 1944 Unknown [id number] 2.16.840.1.905940.3.579.2.593 1944 Unknown [id number] 2.16.840.1.628523.3.579.2.593 1944 Unknown [id number] 2.16.840.1.535952.3.579.2.593 1944 Unknown [id number] 2.16.840.1.733436.3.579.2.593 1944 Unknown [id number] 2.16.840.1.749178.3.579.2.593 1944 Unknown [id number] 2.16.840.1.260619.3.579.2.593 1944 Unknown [id number] 2.16.840.1.256716.3.579.2.593 1944 Unknown [id number] 2.16.840.1.447396.3.579.2.593 1944 Unknown [id number] 2.16.840.1.175033.3.579.2.593 1944 Unknown [id number] 2.16.840.1.707538.3.579.2.593 1944 Unknown [id number] 2.16.840.1.914383.3.579.2.593 1944 Unknown [id number] 2.16.840.1.984466.3.579.2.593 1944 Unknown [id number] 2.16.840.1.651316.3.579.2.593 1944 Unknown [id number] 2.16.840.1.228199.3.579.2.593 1944 Unknown [id number] 2.16.840.1.335131.3.579.2.593 1944 Unknown [id number] 2.16.840.1.845072.3.579.2.593 1944 Unknown [id number] 2.16.840.1.719494.3.579.2.593 1944 Unknown [id number] 2.16.840.1.375203.3.579.2.593 1944 Unknown [id number] 2.16.840.1.851395.3.579.2.593 1944 Unknown [id number] 2.16.840.1.892463.3.579.2.593 1944 Unknown [id number] 2.16.840.1.325521.3.579.2.593 1944 Unknown [id number] 2.16.840.1.876984.3.579.2.593 1944 Unknown [id number] 2.16.840.1.219751.3.579.2.593 1944 Unknown [id number] 2.16.840.1.490841.3.579.2.593 1944 Unknown [id number] 2.16.840.1.771395.3.579.2.593 1944 Unknown [id number] 2.16.840.1.581945.3.579.2.593 1944 Unknown [id number] 2.16.840.1.835893.3.579.2.593 1944 Unknown [id number] 2.16.840.1.047654.3.579.2.593 1944 Unknown [id number] 2.16.840.1.335501.3.579.2.593 1944 Unknown [id number] 2.16.840.1.989522.3.579.2.593 1944 Unknown [id number] 2.16.840.1.904002.3.579.2.593 1944 Unknown [id number] 2.16.840.1.079105.3.579.2.593 1944 Unknown [id number] 2.16.840.1.688186.3.579.2.593 1944 Unknown [id number] 2.16.840.1.731069.3.579.2.593 1944 Unknown [id number] 2.16.840.1.126695.3.579.2.593 Medicare Medicare Outpatient [id number] 2T [id number] Unknown [id number] 2.16.840.1.003651.3.579.2.593 Unknown [id number] 2.16.840.1.953396.3.579.2.593 Unknown [id number] 2.16.840.1.123875.3.579.2.531 Social History Date Type Detail Facility Start: 03-09-2011 End: 02-26-2022 Tobacco smoking status NHIS Ex-smoker [facility] Work Phone: End: 02-15-1975 History of tobacco use Current smoker [facility] Work Phone: End: 02-15-1975 History of tobacco use Cigarette Smoker [facility] Work Phone: Start: 04-08-2021 End: 02-26-2022 Alcohol intake Current drinker of alcohol (finding) [facility] Start: 1945 Sex Assigned At Not on file [facility] Start: 03-09-2011 End: 03-02-2022 Cigarettes smoked current (pack per day) - Reported 1 [facility] Work Phone: Start: 03-09-2011 End: 02-26-2022 Tobacco use and exposure Smokeless tobacco non-user [facility] Start: 09-25-2021 History SDOH Financial 5 [facility] Start: 09-25-2021 History SDOH Food Worry 1 [facility] Start: 09-25-2021 History SDOH Transpo rt Med 2 [facility] Start: 09-14-2021 End: 01-12-2022 Exposure to SARS-CoV-2 (event) Not sure [facility] Start: 02-26-2022 End: 03-02-2022 Sex Assigned At [facility] Work Phone: Start: 1945 Sex Assigned At Male [place] How hard is it for y ou to pay for the very basics like food, housing, medical care, and heating Not hard at all [facility] Work Phone: (I/We) worried whebrenden er (my/our) food would run out before (I/we) got money to buy more. Never true [facility] Work Phone: In the past 12 month s, was there a time when you were not able to pay the mortgage or rent on time? No [facility] Work Phone: Medical Equipment Procedure Code Equipment Code Equipment Original Text Equipment Identifier Dates Tray Powerline S urecuff 5fr Polyurethane Catheter 1 Lumen Microintroducer - [id number] Start: 12-06-2021 Clinical Notes 06-05-2021 to [...] are maintaining regular scheduled appts with their sql manager. No bleeding complications Dec, Hyperlipidemia LDL goal [...] fluid balance and to avoid dehydration. 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 This patient is anticoagulated to prevent thromboembolic events. They are maintaining regular scheduled appts with their sql manager. No bleeding complications Nov, Hyperlipidemia LDL goal [...] Z94.0) Monthly labs to transplant clinic Nov, snf (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 of insulin (ICD-10 - Z79.4) [facility] Other 09-28-2023 Evaluation note* Encounter Date Diagnosis [...] are maintaining regular scheduled appts with their sql manager. No bleeding complications Oct, Type 1 diabetes [...] - Z94.0) Continue routine surveillance labs. Oct, snf (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 of insulin (ICD-10 - Z79.4) [facility] Other 09-01-2023 Miscellaneous Notes* Telephone Encounter - Mary Martinez - 10/16/2022 1:08 PM EDT Pharmacy comment: REQUEST FOR 90 DAYS PRESCRIPTION. DX Code Needed. 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 No bleeding complications Sep, Type 1 diabetes [...] abrupt changes in position. Mitodrine if frequent. 24 Aug, 2023 Controlled type 1 diabetes mellitus with peripheral vascular disease (ICD-10 - E10.51) s/p B/L amputation. No nonhealing ulcerations present Sep, Hyperlipidemia LDL goal <100 (ICD-10 - E78.5) Instructed on diet and exercise with continued statin therapy.Discussed the beneficial effects of lowering cholesterol in reducing the risk for cerebrovascular and cardiovascular disease. Sep, snf (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 of insulin (ICD-10 - Z79.4) Sep, Kidney transplant status (ICD-10 - Z94.0) f/u transplant clinic Continue surveillance labs [facility] Other 08-08-2023 Miscellaneous Notes* Telephone Encounter - Ariadna Mcdowell Tech - 09/22/2022 8:58 AM EDT Pharmacy requesting refills as follows: Requested Prescriptions Pending Prescriptions Disp Refills tacrolimus IR (PROGRAF) 1 mg capsule Sig: Take 1 capsule by mouth DAILY AT 6 PM. Please review and advise. Ariadna Mcdowell, [facility] Evaluation note* Encounter Date Diagnosis Assessment Notes Treatment Notes Treatment Clinical Notes Aug, Longstanding persistent atrial fibrillation (ICD-10 - I48.11) This patient is in NSR or rate controlled. This patient is anticoagulated to prevent thromboembolic events. They are maintaining regular scheduled appts with their sql manager. No s/s bleeding Aug, Type 1 diabetes [...] risk for cerebrovascular and cardiovascular disease. Aug, terminal gauger supervisor (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 of insulin (ICD-10 - Z79.4) Aug, Kidney transplant status (ICD-10 - Z94.0) Continue close surveillance w/ labs [facility] Other 07-26-2023 NotePatient here for 1.5 year follow up and device check. Lightheaded in the office today, as BP is very low. He denies chest pain, SOB, palpitations, and bleeding on warfarin. Had routine labs last week. Review of Systems Musculoskeletal: Positive for arthritis, joint pain and myalgias. Neurological: Positive for light-headedness. All other systems reviewed and are negative.[facility] 09-09-2022 NoteUT Electrophysiology Consult Note Reason [...] at about 50-60 systolic. patient with friend/ tractor sweeper driver from facility, we will take patient to the ER for evaluation --------- Per dr. Alvarez 03/2021 Valente García , presents to clinic for routine follow [...] of the right coronary artery with robust najg-[id number] collaterals. 5. Normal global left ventricular systolic [...] Follow up with Dr. Galvez in the [facility] in the next 2 weeks; he may follow up with Dr. Orosco as needed for interventional issues. 5. Follow up with Dr. Devon Moreira as scheduled. PMH: Past Medical History: Diagnosis Date Abnormal ECG Arrhythmia Atrial fibrillation (CMS/HCC) Chronic kidney disease Coronary artery disease Diabetes mellitus (CMS/HCC) (more content not included)...[facility]06-22-2023 Evaluation note* Encounter Date Diagnosis Assessment [...] are maintaining regular scheduled appts with their sql manager. No bleeding complications Jul, Type 1 diabetes [...] risk for cerebrovascular and cardiovascular disease. Jul, snf (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 of insulin (ICD-10 - Z79.4) Jul, Kidney transplant status (ICD-10 - Z94.0) Monthly labs, ongoing surveillance from transplant clinic [facility] Other 05-15-2023 Progress note Author Sadia Aguilar [facility] June 29, 2022 2:47pm Note Date/Time June 29, 2022 2:46p m [facility] [address] [place] [address] Wound Center Provider Note Signed Patient: Alex Almonte MR#: [id number] : 1945 Acct:[id number] Age/Sex: 76 / M Copies to: DO Sadia Whyte APRN~ HPI Date of Visit Date of Visit: Date of Service: 06/29/2022 Time of Service: 14:45 Narrative HPI: 12/30/21 Alex is a 76 year old male presenting to [facility] wound care for aninitial visit for eval and treatment of a sacral/coccyx area pressure ulcer. He resides at [facility]. There is an OTOLARYNGOLOGY SURGEON present for the visit. Medicalhoney gel will [...] his brief that was cleaned by this financial writer as well as another nursing staff member, [...] from initial visit here Mode of Arrival/ Parts Control Clerk: Facility vehicle Assistive Device Used Today: Wheelchair and Indra Lives with:: Care/Nursing Facility Appetite Description: Within Normal Limits Who helps w/ dressing change?: Nursing Facility Why Do You Need Help?: Can't Reach Ulcer, Limited mobility and Taxing effort to leave home Smoking Status: Former smoker [facility] Medical History (Updated 03/03/22 @ 14:41 by [...] Ulcer/Injury Staging: Unstageable Bed Appearance: Beefy Red, [place], Yellow and Rolled Edges Percent of Wound [...] 15 Dictated By: Sadia Aguilar APRN DD/ 44 Signed By: <Electronically signed by DAVID Aguilar> 06/29/221446 [facility] Work Phone: 1(103) 212-359905-11-2023 Evaluation note* Encounter Date Diagnosis Assessment Notes [...] are maintaining regular scheduled appts with their sql manager. No bleeding complications June, Hyperlipidemia LDL goal <100 (ICD-10 - E78.5) Instructed on diet and exercise with continued statin therapy.Discussed the beneficial effects of lowering cholesterol in reducing the risk for cerebrovascular and cardiovascular disease. June, snf (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 of insulin (ICD-10 - Z79.4) June, Kidney transplant status (ICD-10 - Z94.0) No s/s rejection Elance Other 04-24-2023 Progress note Author Sadia Aguilar [facility] June 08, 2022 2:10pm Note Date/Time June 08, 2022 2:1 0pm [facility] [address] [place] [address] Wound Center Provider Note Signed Patient: Alex Almonte MR#: [id number] : 1945 Acct:[id number] Age/Sex: 76 / M Copies to: Devon Moreira,DO Sadia Aguilar APRN~ HPI Date of Visit Date of Visit: Date of Service: 06/08/2022 Time of Service: 14:07 Narrative HPI: 12/30/21 Alex is a 76 year old male presenting to [facility] wound care for aninitial visit for eval and treatment of a sacral/coccyx area pressure ulcer. He resides at [facility]. There is an OTOLARYNGOLOGY SURGEON present for the visit. Medicalhoney gel will [...] his brief that was cleaned by this financial writer as well as another nursing staff member, [...] from initial visit here Mode of Arrival/ Parts Control Clerk: Facility vehicle Assistive Device Used Today: Wheelchair and Indra Lives with:: Care/Nursing Facility Appetite Description: Within Normal Limits Who helps w/ dressing change?: Nursing Facility Why Do You Need Help?: Can't Reach Ulcer, Limited mobility and Taxing effort to leave home Smoking Status: Former smoker [facility] Medical History (Updated 03/03/22 @ 14:41 by [...] Ulcer/Injury Staging: Unstageable Bed Appearance: Beefy Red, [place], Yellow and Rolled Edges Percent of Wound [...] <Electronically signed by DAVID Aguilar> 06/08/22 1410 [facility] Work Phone: 1(916) 783-354204-21-2023 Evaluation note* Encounter Date Diagnosis Assessment Notes [...] are maintaining regular scheduled appts with their sql manager. 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 No open ulcerations present Pain controlled Elance Other 03-27-2023 Progress note Author Sadia Aguilar [facility] May 11, 2022 1:41pm Note Date/Time May 11, 2022 1:4 0pm [facility] [address] [place] [address] Wound Center Provider Note Signed Patient: Alex Almonte MR#: [id number] : 1945 Acct:[id number] Age/Sex: 76 / M Copies to: Devon Moreira,DO Sadia Aguilar, [employer]PER[employer]~ HPI Date of Visit Date of Visit: Date of Service: 05/11/2022 Time of Service: 13:38 Narrative HPI: 12/30/21 Alex is a 76 year old male presenting to [facility] wound care for aninitial visit for eval and treatment of a sacral/coccyx area pressure ulcer. He resides at [facility]. There is an OTOLARYNGOLOGY SURGEON present for the visit. Medicalhoney gel will [...] his brief that was cleaned by this financial writer as well as another nursing staff member, [...] from initial visit here Mode of Arrival/ Parts Control Clerk: Facility vehicle Assistive Device Used Today: Wheelchair and Indra Lives with:: Care/Nursing Facility Appetite Description: Within Normal Limits Who helps w/ dressing change?: Nursing Facility Why Do You Need Help?: Can't Reach Ulcer, Limited mobility and Taxing effort to leave home Smoking Status: Former smoker [facility] Medical History (Updated 03/03/22 @ 14:41 by [...] Ulcer/Injury Staging: Unstageable Bed Appearance: Beefy Red, [place] and Yellow Percent of Wound Bed Granulated/Red: [...] <Electronically signed by DAVID Aguilar> 05/11/22 1341 [facility] Work Phone: 1(908) 696-240503-23-2023 Evaluation note* Encounter Date Diagnosis Assessment Notes [...] are maintaining regular scheduled appts with their sql manager. Apr, Type 1 diabetes mellitus with hyperglycemia [...] are reviewed at the office visit Apr, terminal gauger supervisor (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 of insulin (ICD-10 - Z79.4) Apr, Kidney transplant status (ICD-10 - Z94.0) Serial labs by clinic Hydrate, avoid NSAIDS Elance Other 03-10-2023 NoteHNO ID: [id number] Author: Keyur Brown MD Service: ? Author Type: Physician Type: Progress Notes Filed: 04/24/2022 10:32 AM Note Text: Encounter opened in error, patient not seen.[facility]02-28-2023 Progress note Author Sadia Aguilar [facility] April 14, 2022 2:19pm Note Date/Time April 14, 2022 2:18pm [facility] [address] [place] [address] Wound Center Provider Note Signed Patient: Alex Almonte MR#: [id number] : 1945 Acct:[id number] Age/Sex: 76 / M Copies to: DO Sadia Whyte APRN~ HPI Date of Visit Date of Visit: Date of Service: 04/14/2022 Time of Service: 14:18 Narrative HPI: 12/30/21 Alex is a 76 year old male presenting to [facility] wound care for aninitial visit for eval and treatment of a sacral/coccyx area pressure ulcer. He resides at [facility]. There is an OTOLARYNGOLOGY SURGEON present for the visit. Medicalhoney gel will [...] his brief that was cleaned by this financial writer as well as another nursing staff member, [...] from initial visit here Mode of Arrival/ Parts Control Clerk: Facility vehicle Assistive Device Used Today: Wheelchair and Indra Lives with:: Care/Nursing Facility Appetite Description: Within Normal Limits Who helps w/ dressing change?: Nursing Facility Why Do You Need Help?: Can't Reach Ulcer, Limited mobility and Taxing effort to leave home Smoking Status: Former smoker [facility] Medical History (Updated 03/03/22 @ 14:41 by [...] Ulcer/Injury Staging: Unstageable Bed Appearance: Beefy Red, [place] and Yellow Percent of Wound Bed Granulated/Red: [...] 15 Dictated By: Sadia Aguilar APRN DD/ 1418 Signed By: <Electronically signed by DAVID Aguilar> 04/14/22 1419 [facility] Work Phone: [phone]) 147-361302-16-2023 NotePatient Outreach (DAVISMMN) ALEX ALMONTE ([id number]) 1945 M TRN Date Time Provider Department 04/02/22 VAN OLIVAREZ During your visit today, we recorded the following information about you: Allergies As of Date: 04/02/2022 Noted Allergy Reaction PYRIDOSTIGMINE BROMIDE 08/04/2021 8 - GI Upset Date Reviewed: 02/26/2022 Reviewed by: Braden Abel MA - Fully Assessed Visit Diagnosis:Screening for genitourinary condition [Z13.89] Order(s):URINALYSIS, REFLEX MICROSCOPIC [[id number]] Order #: [id number] Prescriptions as of 04/06/2022 - tacrolimus IR [...] by mouth daily with lunch. 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/2002 DIABETES UNCOMPL ADULT-UNCONTRLLED [[id number]] 02/24/2002 KIDNEY TRANSPLANT STATUS [Z94.0] 09/07/2003 PROPHYLACTIC IMMUNOTHERAPY [Z29.8] 07/30/2006 CORRECTION STEROIDS [[id number]] 07/30/2006 VITAMIN D DEFICIENCY NOS [E55.9] 09/07/2008 MIXED HYPERLIPIDEMIA [E78.2] 09/07/2008 SUMMARY 01/04/2015 ILIANA (acute kidney injury) (HCC) [N17.9] 01/04/2015 Diabetes mellitus (HCC) [E11.9] 01/04/2015 Cellulitis [L03.90] 01/04/2015 Diarrhea [R19.7] 01/04/2015 VTE (venous thromboembolism) [I82.90] 09/24/2021 CAD (coronary artery disease) [I25.10] 2016 Paroxysmal atrial fibrillation (HCC) [I48.0] HTN (hypertension) [I10] SA node dysfunction ([facility]) [I49.5] Altered tissue perfusion [R09.89] 09/30/2021 PAD (peripheral artery disease) (HCC) [I73.9] 09/26/2021 Osteomyelitis (HCC) [M86.9] 11/29/2021 Class 1 obesity due to excess calories with ser*11/29/2021 Mixed hyperlipidemia due to type 2 diabetes myles*11/29/2021 Type 2 diabetes mellitus with diabetic peripher*11/29/[address] [place] artery of extremity w*11/29/2021 Malnutrition of moderate degree (HCC) [E44.0] 12/01/2021 Dermatitis associated with moisture [L30.8] 12/04/2021 Encounter Status:Closed by Binary Fountain, BNI VideoUSER on 04/06/22[facility] 03-30-2022 Miscellaneous Notes* Telephone Encounter - Van Olivarez APRN.SUPPLEMENTAL MANAGER - 03/30/2022 12:16 PM EST The following approved medication requests have been transmitted electronically. Requested Prescriptions Signed Prescriptions Disp Refills tacrolimus IR (PROGRAF) 1 mg capsule 180 capsule 4 Sig: TAKE 2 CAPSULES BY MOUTH DAILY AT 6AM*Z94.0* Authorizing Provider: VAN OLIVAREZ APRN.DIAMANTE * Telephone Encounter - Katina Duque - [...] to pharmacy. Katina Duque documented in [facility]Flower [facility]02-07-2023 Progress note Author Sadia Aguilar [facility] March 24, 2022 3:00pm Note Date/Time March 24, 2022 2 :59pm [facility] [address] [place] [address] Wound Center Provider Note Signed Patient: Alex Almonte MR#: [id number] : 1945 Acct:[id number] Age/Sex: 76 / M Copies to: DO Sadia Whyte APRN~ HPI Date of Visit Date of Visit: Date of Service: 03/24/2022 Time of Service: 14:58 Narrative HPI: 12/30/21 Alex is a 76 year old male presenting to [facility] wound care for aninitial visit for eval and treatment of a sacral/coccyx area pressure ulcer. He resides at [facility]. There is an OTOLARYNGOLOGY SURGEON present for the visit. Medicalhoney gel will [...] his brief that was cleaned by this financial writer as well as another nursing staff member, [...] from initial visit here Mode of Arrival/ Parts Control Clerk: Facility vehicle Assistive Device Used Today: Wheelchair and Indra Lives with:: Care/Nursing Facility Appetite Description: Within Normal Limits Who helps w/ dressing change?: Nursing Facility Why Do You Need Help?: Can't Reach Ulcer, Limited mobility and Taxing effort to leave home Smoking Status: Former smoker [facility] Medical History (Updated 03/03/22 @ 14:41 by [...] Ulcer/Injury Staging: Unstageable Bed Appearance: Beefy Red, [place] and Yellow Percent of Wound Bed Granulated/Red: [...] <Electronically signed by DAVID Aguilar> 03/24/22 1500 [facility] Work Phone: 1(323) 703-245901-17-2023 Progress note Author Sadia Aguilar [facility] March 03, 2022 2:41pm Note Date/Time March 03, 2022 2 :41pm [facility] [address] [place] [address] Wound Center Provider Note Signed Patient: Alex Almonte MR#: [id number] : 1945 Acct:[id number] Age/Sex: 76 / M Copies to: DO Sadia Whyte APRN~ HPI Date of Visit Date of Visit: Date of Service: 03/03/2022 Time of Service: 14:38 Narrative HPI: 12/30/21 Alex is a 76 year old male presenting to [facility] wound care for aninitial visit for eval and treatment of a sacral/coccyx area pressure ulcer. He resides at [facility]. There is an OTOLARYNGOLOGY SURGEON present for the visit. Medicalhoney gel will [...] his brief that was cleaned by this financial writer as well as another nursing staff member, [...] from initial visit here Mode of Arrival/ Parts Control Clerk: Facility vehicle Assistive Device Used Today: Wheelchair and Indra Lives with:: Care/Nursing Facility Appetite Description: Within Normal Limits Who helps w/ dressing change?: Nursing Facility Why Do You Need Help?: Can't Reach Ulcer, Limited mobility and Taxing effort to leave home Smoking Status: Former smoker [facility] Medical History (Updated 03/03/22 @ 14:41 by [...] Ulcer Pressure Ulcer/Injury Staging: Unstageable Bed Appearance: [place] and Yellow Percent of Wound Bed Granulated/Red: 90 Percent of Devitalized: 10 Length (cm): 2.2 Width (cm): 1.8 Depth (cm): 1.9 CM Sq: 3.960 Surrounding Tissue Appearance: [place], Hyperpigmented and Satellite lesions Surrounding Tissue Temp: [...] <Electronically signed by DAVID Aguilar> 03/03/22 1441 [facility] Work Phone: 1(344) 937-365101-13-2023 Miscellaneous Notes* Telephone Encounter - RAUL Davidson - 02/27/2022 10:24 AM EST Patient phones requesting refills as follows: Per pts sister takes 1 mg in AM and 1 mg in PM Requested Prescriptions Pending Prescriptions Disp Refills tacrolimus IR (PROGRAF) 1 mg capsule Sig: Take 2 capsules by mouth DAILY (6 AM). Please review and advise. RAUL Davidson documented in this encounterFlower Hospital01-12-2023 NoteHNO ID: [id number] Author: Hina Peterson MD Service: ? Author Type: Physician Type: Progress Notes Filed: 02/26/2022 4:31 PM Note Text: [facility] [place] DEPARTMENT OF VASCULAR SURGERY OUTPATIENT VISIT DATE [...] his postop visit. He has been in retirement since then and has been recovering from his acute on chronic congestive heart failure. His wound has largely been healing without any issues and the maxwell and sutures were removed at the nursing facility. He comes here with a lateral wound eschar. He denies any fevers, chills, or any drainage. He is on anticoagulation. 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 Patient on mycophenolate mofetil , cellcept and prednisone 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) 11/29/2021 Osteomyelitis (HCC) 11/29/2021 Paroxysmal atrial fibrillation (HCC) Renal transplant, status post SA node dysfunction (HCC) s/p pacemaker Type 2 diabetes mellitus with [...] mouth. Take one (1) tablet - tacrolimus IR (PROGRAF) 1 mg capsule [...] by mouth daily with lunch. Magic Cup Cochran with lunch aspirin, enteric coated (ASPIRIN, ENTERIC COATED) 81 mg EC tablet Take 1 tablet by mouth once daily. predniSONE (DELTASONE) 5 mg tablet TAKE 1 TABLET BY MOUTH EVERY DAY oxyCODONE IR (ROXICODONE) 5 mg immediate release tablet 1-2 tablets by ORAL/FEEDING TUBE route every 3 hours as needed. Food Supplement, Lactose-Free (ENSURE MAX (more content not included)... [facility]01-12-2023 History of Present illness Narrative* Hina Peterson MD - 02/26/2022 4:25 PM EST Images from the original note were not included. [facility] [place] DEPARTMENT OF VASCULAR SURGERY OUTPATIENT VISIT DATE [...] his postop visit. He has been in retirement since then and has been recovering from his acute on chronic congestive heart failure. His wound has largely been healing without any issues and the maxwell and sutures were removed at the [facility] facility. He comes here with a lateral wound eschar. He denies any fevers, chills, or any drainage. He is on anticoagulation. 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 Patient on mycophenolate mofetil ,cellcept and prednisone Mixed hyperlipidemia due to type 2 diabetes mellitus ([facility]) 11/29/2021 Osteomyelitis ([facility]) 11/29/2021 Paroxysmal atrial fibrillation ([facility]) Renal transplant, status post SA node dysfunction ([facility]) s/p pacemaker Type 2 diabetes mellitus with diabetic neuropathy, with long-term current use of insulin ([facility]) 02/24/2002 PAST SURGICAL HISTORY Procedure Laterality [...] Take by mouth. Take one (1) tablet tacrolimus IR (PROGRAF) 1 mg capsule Take [...] by mouth daily with lunch. Magic Cup Cochran with lunch aspirin, enteric coated (ASPIRIN, ENTERIC [...] 2022 TIME: 4:26 PM documented in this encounterFlower Hospital01-05-2023 Miscellaneous Notes* Telephone Encounter - Gwen [...] Home and cell number(Ask for Alex's nurse) [phone] Diagnosis 4 mo f/u wound check Yumiko Mcclain documented in this encounterFlower Hospital01-05-2023 Miscellaneous Notes* Telephone Encounter - Augusta Medrano RN - 02/19/2022 11:11 AM EST Alex Almonte's nursing facility, [facility], called regarding elevated tacrolimus level (23.9). Spoke with bedside nurse, Zoe, today. Level is from last week- unable to clearly determine if medications were held prior to lab work. Reviewed with nurse morning labs should occur prior to lab draws. Patient is scheduled for repeat labs tomorrow. Will assess new level. Augusta Medrano RN documented in this encounterFlower Hospital01-04-2023 Miscellaneous Notes* Telephone Encounter - Martina [...] advise. Mercedez Tavares MA documented in this encounterFlower Hospital12-27-2022 Progress note Author Sadia Aguilar [facility] February 10, 2022 3:47pm Note Date/Time February 10, 2022 3:47pm [facility] [address] [place] [address] Wound Center Provider Note Signed Patient: Alex Almonte MR#: [id number] : 1945 Acct:[id number] Age/Sex: 76 / M Copies to: DO Sadia Whyte APRN~ HPI Date of Visit Date of Visit: Date of Service: 02/10/2022 Time of Service: 15:44 Narrative HPI: 12/30/21 Alex is a 76 year old male presenting to [facility] wound care for aninitial visit for eval and treatment of a sacral/coccyx area pressure ulcer. He resides at [facility]. There is an OTOLARYNGOLOGY SURGEON present for the visit. Medicalhoney gel will [...] his brief that was cleaned by this financial writer as well as another nursing staff member, few weeks to follow up Subjective Pain Coccyx: Pain Description: Intermittent Pain Intensity: 0 Wound/Ulcer History When did wound start?: 4 weeks ago- from initial visit here Mode of Arrival/ Parts Control Clerk: Facility vehicle Assistive Device Used Today: Wheelchair and Indra Lives with:: Care/Nursing Facility Appetite Description: Within Normal Limits Who helps w/ dressing change?: Nursing Facility Why Do You Need Help?: Can't Reach Ulcer, Limited mobility and Taxing effort to leave home Smoking Status: Former smoker [facility] Medical History (Updated 01/20/22 @ 14:21 by [...] Ulcer Pressure Ulcer/Injury Staging: Unstageable Bed Appearance: [place] and Yellow Percent of Wound Bed Granulated/Red: 90 Percent of Devitalized: 10 Length (cm): 2.5 Width (cm): 2.3 Depth (cm): 2.1 CM Sq: 5.750 Surrounding Tissue Appearance: [place], Hyperpigmented and Satellite lesions Surrounding Tissue Temp: [...] 20 Dictated By: Sadia Aguilar APRN DD/ 154 Signed By: <Electronically signed by DAVID Aguilar> 02/10/22 1547 [facility] Work Phone: 1(902) 457-195512-22-2022 NoteHNO ID: [id number] Author: Asia Pike MD Service: ? Author Type: Physician Type: Progress Notes Filed: 02/05/2022 9:38 AM Note Text: [facility] [place] Transplant Follow up Portions of this note [...] and snacks patient declined. Indra scale at [facility]: 166.2 lbs per patient. Bed sore on coccyx causing discomfort. Being changed regularly at SNF- reported to be smaller around but still as deep. Patient not very up to date with medications. Patient brought paperwork from [facility] with all medications being received. Patient unsure if they have been drawing labs regularly. Last Tac from 01/19: 12.9 and K 5.9. In need of current labs. Lab orders will be sent with patient and follows as below: Kidney and Pancreas Transplant Standing Lab Orders [address] [place], [place] [address] February 05, 2022 [place] 1945 [id number] STANDARD TESTING: Diagnosis Codes: Z94.0 Kidney Transplant [...] AT YOUR LABORATORY FACILITY AND FAX TO [phone]. PLEASE CALL [phone]. Provider: Dr. Pike Current Outpatient Medications Medication Sig insulin glargine (LANTUS SOLOSTAR, BASAGLAR KWIKPEN) 100 unit/mL (3 mL) Inject 17 Units subcutaneously once daily. sulfamethoxazole-trimethoprim (SEPTRA) 400-80 mg per tablet Take by mouth. Take one (1) tablet - tacrolimus IR (PROGRAF) 1 mg capsule [...] by mouth daily with lunch. Magic Cup Cochran with lunch aspirin, enteric coated (ASPIRIN, ENTERIC COATED) 81 mg EC tablet Take 1 tablet by mouth once daily. atorvastatin (LIPITOR) 40 mg tablet 1 tablet by ORAL/FEEDING TUBE route daily at bedtime. (more content not included)...[facility]12-[facility] History of Present illness Narrative* Asia Pike MD - 02/05/2022 8:20 AM EST Images from the original note were not included. [facility] [place] Transplant Follow up Portions of this note [...] and snacks patient declined. Indra scale at [facility]: 166.2 lbs per patient. Bed sore on coccyx causing discomfort. Being changed regularly at SNF- reported to be smaller around but still as deep. Patient not very up to date with medications. Patient brought paperwork from [employer] with all medications being received. Patient unsure if they have been drawing labs regularly. Last Tac from 01/19: 12.9 and K 5.9. In need of current labs. Lab orders will be sent with patient and follows as below: Kidney and Pancreas Transplant Standing Lab Orders [address] [facility] [address] [place], [place] [address] February 05, 2022 Alex Kate Almonte 1945 [id number] STANDARD TESTING: Diagnosis Codes: Z94.0 Kidney Transplant [...] AT YOUR LABORATORY FACILITY AND FAX TO [phone]. PLEASE CALL [phone]. Provider: Dr. Pike Current Outpatient Medications Medication [...] by mouth daily with lunch. Magic Cup Cochran with lunch aspirin, enteric coated (ASPIRIN, ENTERIC [...] complexity. Asia Pike MD documented in this encounterFlower Hospital12-06-2022 Progress note Author Sadia Aguilar [facility] January 20, 2022 2:21pm Note Date/Time January 20, 2022 2 :21pm [facility] [address] [place] [address] Wound Center Provider Note Signed Patient: Alex Almonte MR#: [id number] : 1945 Acct:[id number] Age/Sex: 76 / M Copies to: DO Sadia Whyte APRN~ HPI Date of Visit Date of Visit: Date of Service: 01/20/2022 Time of Service: 14:17 Narrative HPI: 12/30/21 Alex is a 76 year old male presenting to [facility] wound care for aninitial visit for eval and treatment of a sacral/coccyx area pressure ulcer. He resides at [facility]. There is an OTOLARYNGOLOGY SURGEON present for the visit. Medicalhoney gel will [...] from initial visit here Mode of Arrival/ Parts Control Clerk: Facility vehicle Assistive Device Used Today: Wheelchair and Indra Lives with:: Care/Nursing Facility Appetite Description: Within Normal Limits Who helps w/ dressing change?: Nursing Facility Why Do You Need Help?: Can't Reach Ulcer, Limited mobility and Taxing effort to leave home Smoking Status: Former smoker [facility] Medical History (Updated 01/20/22 @ 14:21 by [...] Ulcer Pressure Ulcer/Injury Staging: Unstageable Bed Appearance: [place] and Yellow Percent of Wound Bed Granulated/Red: 40 Percent of Devitalized: 60 Length (cm): 5.2 Width (cm): 3.4 Depth (cm): 1.8 CM Sq: 17.680 Surrounding Tissue Appearance: [place] and Hyperpigmented Surrounding Tissue Temp: Warm Drainage [...] 20 Dictated By: Sadia Aguilar APRN DD/ 1417 Signed By: <Electronically signed by DAVID Aguilar> 01/20/22 1421 [facility] Work Phone: 1(147) 392-108712-06-2022 Miscellaneous Notes* Telephone Encounter - Van Olivarez APRN.CNP - 01/20/2022 1:12 PM EST Labs noted from yesterday. Pt is currently residing at [facility], I spoke with the Nurse, the results has been addressed by Physician caring for pt. He had been placed on Chlor Con and this has been discontinued and hyperkalemia has been treated. Van Olivarez APRN.CNP documented in this encounterFlower Hospital11-28-2022 Surgical operation note* Brief Op Note - Misbah Landis PA-C - 01/12/2022 10:41 AM EST BRIEF OPERATIVE / PROCEDURE NOTE LOG ID: [id number] SURGERY/PROCEDURE DATE: 01/12/2022 INCISION/PROCEDURE START TIME: 10:32 AM INCISION CLOSE/PROCEDURE END TIME: 10:35 AM SURGEON(S)/PROCEDURALIST(S) AND TECHNOLOGY DEVELOPMENT INTERN(S): Misbah Landis PA-C SURGERY/PROCEDURE(S): Removal tunneled vascular access catheter under local anesthesia ANESTHESIA: Procedural Sedation FINDINGS: Catheter removed intact ESTIMATED BLOOD LOSS: 0 ml SPECIMENS: None COMPLICATIONS: None PRE-OP/PRE-PROCEDURE DIAGNOSIS: Foot Ulcer POST-OP/POST-PROCEDURE DIAGNOSIS: Same as Preop SIGNATURE: Misbah Landis PA-C PATIENT NAME: Alex Almonte DATE: January 12, 2022 TIME: 10:42 AM documented in this encounterFlower Hospital11-22-2022 Nurse Note* Laxmi Archibald RN - 01/06/2022 1:55 PM EST Pre-procedure instructions: Contacted patient's sister, Munira Brothers and nurse at [facility], Jada ([phone]) andconfirmed appt. for Gerhard removal scheduled on 01/12/22, at [facility]. If instructions are not followed your [...] signed. Arrival at 9:30am to desk QB-1 ([facility]) and check in for your procedure. Operative Supervisor/Transportation: How will you be arriving for your procedure? Ambulance service. To be arranged by [facility]. If you develop any of the following symptoms before your procedure, please call [phone]. Chills, joint pain, rash, sore throat, cough, loss of smell, reddened eyes, vomiting, abdominal pains, diarrhea, loss of taste, severe headache, weakness, bruising or bleeding, fever, muscle pain, shortness of breath Recovery expectations: You can expect to be in recovery for 30 minutes following the procedure. Written instructions provided to patient via HyperWeekt If you have any questions please call [phone] documented in this encounterFlower Hospital11-15-2022 Progress note Author Sadia Aguilar [facility] December 30, 2021 1:49pm Note Date/Time December 30, 2021 1:49pm [facility] [address] [place] [address] Wound Center Provider Note Signed Patient: Alex Almonte MR#: [id number] : 1945 Acct:[id number] Age/Sex: 76 / M Copies to: DO Sadia Whyte APRN~ HPI Date of Visit Date of Visit: Date of Service: 12/30/2021 Time of Service: 13:44 Narrative HPI: 12/30/21 Alex is a 76 year old male presenting to [facility] wound care for aninitial visit for eval and treatment of a sacral/coccyx area pressure ulcer. He resides at [facility]. There is an OTOLARYNGOLOGY SURGEON present for the visit. Medicalhoney gel will [...] start?: 4 weeks ago Mode of Arrival/ Parts Control Clerk: Facility vehicle Assistive Device Used Today: Wheelchair and Indra Lives with:: Care/Nursing Facility Appetite Description: Within Normal Limits Who helps w/ dressing change?: Nursing Facility Why Do You Need Help?: Can't Reach Ulcer, Limited mobility and Taxing effort to leave home Smoking Status: Former smoker [facility] Medical History (Updated 12/30/21 @ 13:49 by [...] 0.1 CM Sq: 38.500 Surrounding Tissue Appearance: [place] and Hyperpigmented Surrounding Tissue Temp: Warm Drainage [...] 25 Dictated By: Sadia Aguilar APRN DD/ 43 Signed By: <Electronically signed by DAVID Aguilar> 12/30/21 0347 [facility] Work Phone: 1(562) 735-435011-15-2022 History of Present illness Narrative* Paresh Fonseca [...] the rehab facility He is currently at [facility] in [facility] Seen on video together with Zoe -history obtained from bedside nursing. he is getting up in a chair, working with PT diet is back to regular hes doing well. 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 has scabs on the R lateral side but no wound care concerns. It continues to heal. He has a follow-up with vascular surgery later December 2021. has a sacral wound -- he has local wound care following this at [facility] WBC 6.0, creatinine -- 0.8. alt 12 [...] Take by mouth. Take one (1) tablet tacrolimus IR (PROGRAF) 1 mg capsule Take [...] by mouth daily with lunch. Magic Cup Cochran with lunch aspirin, enteric coated (ASPIRIN, ENTERIC [...] is a 76 year old male from [facility]. 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 History of PAD CAD status post CABG, diabetes, atrial fibrillatioN He originally presented [facility] for having altered mental status and right [...] 3. Status post right heel I&D at [facility] on 11/24/2021. 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 4. CKD - s/p gerhard placement 5. immunocompromised Status post right open above the ankle [id number]/17 - Enterobacter and MRSA from cultures Gram-positive [...] will need to coordinate with his SNF [phone] --our ID office will need to arrange for IR gerhard removal. Return to ID as needed 10 Minutes spent via virtual visit. SIGNATURE: Paresh Fonseca MD PATIENT NAME: Alex Almonte DATE: December 30, 2021 TIME: 9:52 AM documented in this encounterFlower Hospital11-01-2022 Miscellaneous Notes* Telephone Encounter - Sulma Pardo - 12/16/2021 3:13 PM EDT Pt occupational therapy teacher is requesting orders for Stomp ampushield to be taken off pressure relief because it is causing sores on the thigh. Thanks, Sulma Pardo Garden Consultant documented in this encounterFlower Hospital10-31-2022 Miscellaneous Notes* Telephone Encounter - Gwen Alfredo Adm Asst I - 12/15/2021 4:11 PM EDT Rupa LYLES from [facility] [phone] called to report IV Vancomycin was started until today. Patient missed 3 days, should patient makeup missed doses? Please advise. Gwen Alfredo Adm Asst I documented in this encounterFlower Hospital10-21-2022 Instructions* Patient Instructions* Paresh Fonseca MD [...] serious illness Are taking any medications (prescription, srwq-oim-iskqygh, vitamins, or herbal products) How will I receive EVUSHELD? EVUSHELD consists of two investigational medicines, tixagevimab and cilgavimab. You will receive 1 dose of EVUSHELD, consisting of 2 separate injections (tixagevimab and cilgavimab). EVUSHELD will be given to you by your healthcare provider as 2 intramuscular injections, given one after the other. Viruses can exchange teller time (mutate) and develop into a slightly [...] caused by certain SARS-CoV-2 variants: Viruses can exchange teller time (mutate) and develop into a slightly [...] treatment or prevention of COVID-19 go to https://www.fda.gov/wravpurxe-wjzvjdyzhiss-ffd- response/hwl-epiji-pjzbripcjp-aom-meadbd-oedejnztk/jjvbbiqim-neh-npxwlywjotkga for more information. It is your choice [...] to FDA MedWatch at www.fda.gov/medwatch or call 9-717-RVS-9215 or call [employer] . Additional Information If you have questions, visit the website or call the telephone number provided below. Website Telephone number http://www.ShopgateusheldAraca How can I learn more about COVID-19? Ask your healthcare provider. Visit https://www.cdc.gov/COVID19 Contact your local or state public health department. What is an Emergency Use Authorization? The [place] FDA has made EVUSHELD (tixagevimab co-packaged with cilgavimab) available under an emergency access mechanism called an Emergency Use Authorization EUA. The EUA is supported by a [place] of Health and Human Service ([facility]) declaration that circumstances exist to justify the [...] monohydrate, polysorbate 80, sucrose, water. Distributed by: [employer], [place], [place] Manufactured for: [employer], [place], [place] [employer] 2021. All rightsreserved. documented in this encounterFlower Hospital10-21-2022 Miscellaneous Notes* Telephone Encounter - Paresh Fonseca MD - 12/05/2021 3:05 PM EDT Evusheld (tixagevimab/cilgavimab) Eligibility and Patient Discussion The patient agrees to receive Evusheld (tixagevimab 300 mg and cilgavimab 300 mg) at [facility]. The patient verbalized understanding of repeating a COVID test 72 hours prior to the injections. called up patient in response to her [employer] message today she tested covid negative on a rapid test on Wednesday this week Discussed evushed fact sheet and she agrees to proceed she will retest again today to be scheduled for Friday 12/08 at [facility] Paresh Fonseca MD documented in this encounterFlower Hospital10-03-2022 Instructions* Patient Instructions* No Reeder DO - 11/17/2021 4:26 PM EDT -- continue coumadin -- will get vascular ultrasound for vein and artery of your right leg -- will have you see my interventional cardiology partner regarding your peripheral artery disease and if your artery disease is impairing your wound healing for the leg ulcer documented in this encounterFlower Hospital10-03-2022 History of Present illness Narrative* No Reeder DO - 11/17/2021 3:53 PM EDT Images from the original note were not included. [facility] [place] [facility] Department of Cardiovascular Medicine SECTION [...] Take by mouth. Take one (1) tablet latanoprost(XALATAN 0.005 % EYE DROPS) Use 1 [...] DVT scan. Leg elevation. No Reeder DO, [facility] Vascular Medicine documented in this encounter[address]16-2022 History of Past illness Narrative* Problem Noted Date Resolved Date Altered tissue perfusion 2 022 documented as of this encounter (statuses as of 09/30/2021) [address]16-2022 History of Past illness Narrative* Problem Noted Date Resolved Date Altered tissue perfusion 2 022 documented as of this encounter (statuses as of 10/09/2021) [address]16-2022 History of Past illness Narrative* Problem Noted Date Resolved Date Altered tissue perfusion 2 022 documented as of this encounter (statuses as of 11/18/2021) [address]16-2022 History of Past illness Narrative* Problem Noted Date Resolved Date Altered tissue perfusion 2 022 documented as of this encounter (statuses as of 12/01/2021) [address]16-2022 History of Past illness Narrative* Problem Noted Date Resolved Date Altered tissue perfusion 16/2 022 documented as of this encounter (statuses as of 12/05/2021) [address]16-2022 History of Past illness Narrative* Problem Noted Date Resolved Date Altered tissue perfusion 16/2 022 documented as of this encounter (statuses as of 12/08/2021) [address]16-2022 History of Past illness Narrative* Problem Noted Date Resolved Date Altered tissue perfusion 16/2 022 documented as of this encounter (statuses as of 12/08/2021) [address]16-2022 History of Past illness Narrative* Problem Noted Date Resolved Date Altered tissue perfusion 16/2 022 documented as of this encounter (statuses as of 12/12/2021) [address]16-2022 History of Past illness Narrative* Problem Noted Date Resolved Date Altered tissue perfusion 16/2 022 documented as of this encounter (statuses as of 12/15/2021) [address]16-2022 History of Past illness Narrative* Problem Noted Date Resolved Date Altered tissue perfusion 16/2 022 documented as of this encounter (statuses as of 12/16/2021) [address]16-2022 History of Past illness Narrative* Problem Noted Date Resolved Date Altered tissue perfusion 16/2 022 documented as of this encounter (statuses as of 12/31/2021) [address]16-2022 History of Past illness Narrative* Problem Noted Date Resolved Date Altered tissue perfusion 16/2 022 documented as of this encounter (statuses as of 01/13/2022) [address]16-2022 History of Past illness Narrative* Problem Noted Date Resolved Date Altered tissue perfusion 16/2 022 documented as of this encounter (statuses as of 01/20/2022) [address]16-2022 History of Past illness Narrative* Problem Noted Date Resolved Date Altered tissue perfusion 16/2 022 documented as of this encounter (statuses as of 02/06/2022) [address]16-2022 History of Past illness Narrative* Problem Noted Date Resolved Date Altered tissue perfusion 16/2 022 documented as of this encounter (statuses as of 02/20/2022) [address]16-2022 History of Past illness Narrative* Problem Noted Date Resolved Date Altered tissue perfusion 16/2 022 documented as of this encounter (statuses as of 02/26/2022) [address]16-2022 History of Past illness Narrative* Problem Noted Date Resolved Date Altered tissue perfusion 16/2 022 documented as of this encounter (statuses as of 02/27/2022) [address]16-2022 History of Past illness Narrative* Problem Noted Date Resolved Date Altered tissue perfusion 16/2 022 documented as of this encounter (statuses as of 03/21/2022) [address]16-2022 History of Past illness Narrative* Problem Noted Date Resolved Date Altered tissue perfusion 16/2 022 documented as of this encounter (statuses as of 03/30/2022) [address]16-[address]22 History of Past illness Narrative* Problem Noted Date Resolved Date Altered tissue perfusion 16/2 022 documented as of this encounter (statuses as of 04/06/2022) [place] [address] History of Past illness Narrative* Problem Noted Date Resolved Date Altered tissue perfusion 16/2 022 documented as of this encounter (statuses as of 05/13/2022) [facility] Narrative* Problem Noted Date Diagnosed Date Resolved Date Altered tissue perfusion documented as of this encounter (statuses as of 2022) [facility] illness Narrative* Problem Noted Date Diagnosed Date Resolved Date Altered tissue perfusion documented as of this encounter (statuses as of 10/29/2022) [facility] Miscellaneous Notes* Telephone Encounter - Katina [...] to pharmacy. Katina Duque documented in this encounterFlower Hospital05-31-2022 Miscellaneous Notes* Telephone Encounter - Van Olivarez APRN.CNP - 07/15/2021 9:50 AM EDT The following approved medication requests have been transmitted electronically. Signed Prescriptions Disp Refills predniSONE (DELTASONE) 5 mg tablet 90 tablet 3 Sig: TAKE 1 TABLET BY MOUTH EVERY DAY RILEY: No Authorizing Provider: VAN OLIVAREZ APRN.CNP * Telephone Encounter - Rosibel Daniel - 07/15/2021 9:32 AM EDT Patient phones requesting refills as follows: Pending Prescriptions Disp Refills PREDNISONE 5 MG TABLET 90 tablet 3 Sig: TAKE 1 TABLET BY MOUTH EVERY DAY RILEY: Yes Please review and advise. Rosibel Daniel documented in this encounterFlower Hospital04-21-2022 Miscellaneous Notes* Telephone Encounter - Van Olivarez APRN.CNP - 06/05/2021 4:46 PM EDT Spoke with pt regarding latest results, scr. at baseline. TAC level 8.6 prev two levels in 5 range.He believes latest level would be 12hr trough. No changes for now, if next level >7, can consider if reduction appropriate. He understands. Van Olivarez APRN.CNP [facility]* Diagnosis Screening for genitourinary condition Screening for other and unspecified genitourinary condition documented in this encounter [facility] note* Diagnosis Acute deep vein thrombosis (DVT) of proximal end of right lower extremity ([facility])- Primary PAD (peripheral artery disease) ([facility]) Peripheral vascular disease, unspecified Nonhealing ulcer of heel ([facility]) Anticoagulation management encounter Encounter for therapeutic drug monitoring documented in this encounter [facility] note* Diagnosis Encounter for prophylactic measures, unspecified- Primary documented in this encounter [facility] note* Diagnosis Kidney replaced by transplant- Primary documented in this encounter [facility] note* Diagnosis MRSA bacteremia- Primary Bacteremia Diabetic foot ulcer with osteomyelitis ([facility]) Type II or unspecified type diabetes mellitus with other specified manifestations, not stated as uncontrolled ILIANA (acute kidney injury) ([facility]) Acute kidney failure, unspecified documented in this encounter [facility] note* Diagnosis Kidney replaced by transplant- Primary 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 snf current use of immunosuppressive drug documented in this encounter [facility] note* Diagnosis Hx of BKA, right ([facility])- Primary PAD (peripheral artery disease) ([facility]) Peripheral vascular disease, unspecified Mixed hyperlipidemia due to type 2 diabetes mellitus ([facility]) Type II or unspecified type diabetes mellitus with renal manifestations, uncontrolled(250.42) Type II or unspecified type diabetes mellitus with renal manifestations, uncontrolled Type 2 diabetes mellitus with diabetic neuropathy, with long-term current use of insulin (HCC) Type 2 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, with long-term current use of insulin (HCC) Paroxysmal atrial fibrillation (HCC) Atrial fibrillation documented in this encounter [facility] note* Diagnosis Screening for genitourinary condition Screening for other and unspecified genitourinary condition documented in this encounter [facility] note* Diagnosis Onset Date Resolution Status At high risk for skin breakdown chronic Diabetes chronic Fecal incontinence chronic Limited mobility chronic Poor appetite chronic Pressure ulcer of sacral region, unstageable chronic Candidiasis resolved [facility] Work Phone: Evaluation noteNo InformationNoWell[facility] [employer] Other Evaluation note* Diagnosis Kidney replaced by transplant- Primary documented in this encounter [facility] Narrative - Reported* Type Description Date [...] COLONOSCOPY 1995,2001, 2014 Hospitalization History see above [facility] Other Progress note Author Sadia Aguilar [facility] July 20, 2022 1:48pm Note Date/Time July 20, 2022 1:48p m [facility] [address] [place] [address] Wound Center Provider Note Signed Patient: Alex Almonte MR#: [id number] : 1945 Acct:[id number] Age/Sex: 76 / M Copies to: DO Sadia Whyte APRN~ HPI Date of Visit Date of Visit: Date of Service: 07/20/2022 Time of Service: 13:46 Narrative HPI: 12/30/21 Alex is a 76 year old male presenting to [facility] wound care for aninitial visit for eval and treatment of a sacral/coccyx area pressure ulcer. He resides at [facility]. There is an OTOLARYNGOLOGY SURGEON present for the visit. Medicalhoney gel will [...] his brief that was cleaned by this financial writer as well as another nursing staff member, [...] from initial visit here Mode of Arrival/ Parts Control Clerk: Facility vehicle Assistive Device Used Today: Wheelchair and Indra Lives with:: Care/Nursing Facility Appetite Description: Within Normal Limits Who helps w/ dressing change?: Nursing Facility Why Do You Need Help?: Can't Reach Ulcer, Limited mobility and Taxing effort to leave home Smoking Status: Former smoker [facility] Medical History (Updated 03/03/22 @ 14:41 by [...] <Electronically signed by DAVID Aguilar> 07/20/22 134[address] [facility] Work Phone: Reason for referral (narrative)* Outpatient Procedure (Routine) - Authorized Specialty Diagnoses / Procedures Referred By Contac t Referred To Contact [facility] Diagnoses PAD (peripheral artery disease) (HCC) Nonhealing ulcer of heel (HCC) Procedures US LEG ARTERIAL PERIPH UNL VAS LAB DUP-SCAN LXTR ART/ARTL BPGS UNI/LMTD STUDY No Reeder DO [address] [place] [address] [facility] [place] [address] Referral ID Status Reason Start Date Expiration Date Visits Requested Visits Authorized [id number] Authorized Auto-Generat ed Referral 11/17/2021 11/17/2022 1 1 * Outpatient Procedure (Routine) - Authorized Specialty Diagnoses / Procedures Referred By Contac t Referred To Contact [facility] Diagnoses Acute deep vein thrombosis (DVT) of proximal end of right lower extremity (HCC) Procedures US LEG VEIN DVT UNL VAS LAB DUP-SCAN XTR VEINS UNILATERAL/LIMITED STUDY No Reeder DO [address] [place] [address] [place] [address] Referral ID Status Reason Start Date Expiration Date Visits Requested Visits Authorized [id number] Authorized Auto-Generat ed Referral 11/17/2021 11/17/2022 1 1 * Consult, Test, Treat (Routine) - Authorized Specialty Diagnoses / Procedures Referred By Contac t Referred To Contact Cardiology Diagnoses PAD (peripheral artery disease) (HCC) Nonhealing ulcer of heel (HCC) Procedures CONSULT TO CARDIOLOGY OFFICE/OUTPATIENT [facility] 60-74 MINUTES Savanah Marcelo MD [address] [place] [address] Referral ID Status Reason Start Date Expiration Date Visits Requested Visits Authorized [id number] Authorized PCP Requested Referral 11/17/2021 11/17/2022 1 1 [facility] Summary Purpose Family History Relationship Condition Age at Onset Recorded Date/T kartik father Aneurysm Unknown father Parkinson's disease Unknown Advance Directives Documents on File Type Date Recorded Patient Pilot Supervisor Expl anation Advance Directive(s) Latest Code Status [...] Maker Relationship: M ajority of Adult Siblings (collections representative) DNR-CCA 09/26/2021 11:56 AM 10/01/2021 2:18 [...] Decision Maker Relationship: Majority of Adult Siblings (collections representative) Code Status History Code Status Date [...] Reason for Visit Chief Complaint Open Wound ([facility]) Reason for Visit At high risk for ski n breakdown Diabetes Fecal incontinence Limited mobility Poor appetite Pressure ulcer of sacral region, unstageable Candidiasis Additional Source Comments (unrecognized sect ion and content) No Status Records FoundNo Status Records FoundNo Status Records FoundNo Status Records FoundNo Status Records Found INFORMATION SOURCE (unrecogn ized section and content) DATE CREATED AUTHOR 02/20/2021 [employer] DATE CREATED AUTHOR AUTHOR'S ORGANIZ ATION 07/25/2022 [facility] DATE CREATED AUTHOR AUTHOR'S ORGANIZ ATION 08/16/2022 [facility] DATE CREATED AUTHOR AUTHOR'S ORGANIZ ATION 09/17/2022 [facility] DATE CREATED AUTHOR AUTHOR'S ORGANIZ ATION 01/14/2023 [facility] Source Comments (unrecognize d section and content) In the event this informatio n is protected by the Federal Confidentiality of Alcohol and Drug Abuse Patient Records regulations: The Federal rules restrict any use of the information to criminally investigate or prosecute any alcohol or drug abuse patient.[facility] HospitalIn the event this information is protected by the Federal Confidentiality of Alcohol and Drug Abuse Patient Records regulations: The Federal rules restrict any use of the information to criminally investigate or prosecute any alcohol or drug abuse patient.[facility] HospitalIn the event this information is protected by the Federal Confidentiality of Alcohol and Drug Abuse Patient Records regulations: The Federal rules restrict any use of the information to criminally investigate or prosecute any alcohol or drug abuse patient.[facility] HospitalIn the event this information is protected by the Federal Confidentiality of Alcohol and Drug Abuse Patient Records regulations: The Federal rules restrict any use of the information to criminally investigate or prosecute any alcohol or drug abuse patient.[facility] HospitalIn the event this information is protected by the Federal Confidentiality of Alcohol and Drug Abuse Patient Records regulations: The Federal rules restrict any use of the information to criminally investigate or prosecute any alcohol or drug abuse patient.[facility] HospitalIn the event this information is protected by the Federal Confidentiality of Alcohol and Drug Abuse Patient Records regulations: The Federal rules restrict any use of the information to criminally investigate or prosecute any alcohol or drug abuse patient.[facility] HospitalIn the event this information is protected by the Federal Confidentiality of Alcohol and Drug Abuse Patient Records regulations: The Federal rules restrict any use of the information to criminally investigate or prosecute any alcohol or drug abuse patient.[facility] HospitalIn the event this information is protected by the Federal Confidentiality of Alcohol and Drug Abuse Patient Records regulations: The Federal rules restrict any use of the information to criminally investigate or prosecute any alcohol or drug abuse patient.[facility] HospitalIn the event this information is protected by the Federal Confidentiality of Alcohol and Drug Abuse Patient Records regulations: The Federal rules restrict any use of the information to criminally investigate or prosecute any alcohol or drug abuse patient.[facility] HospitalIn the event this information is protected by the Federal Confidentiality of Alcohol and Drug Abuse Patient Records regulations: The Federal rules restrict any use of the information to criminally investigate or prosecute any alcohol or drug abuse patient.[facility] HospitalIn the event this information is protected by the Federal Confidentiality of Alcohol and Drug Abuse Patient Records regulations: The Federal rules restrict any use of the information to criminally investigate or prosecute any alcohol or drug abuse patient.[facility] HospitalIn the event this information is protected by the Federal Confidentiality of Alcohol and Drug Abuse Patient Records regulations: The Federal rules restrict any use of the information to criminally investigate or prosecute any alcohol or drug abuse patient.[facility] HospitalIn the event this information is protected by the Federal Confidentiality of Alcohol and Drug Abuse Patient Records regulations: The Federal rules restrict any use of the information to criminally investigate or prosecute any alcohol or drug abuse patient.[facility] HospitalIn the event this information is protected by the Federal Confidentiality of Alcohol and Drug Abuse Patient Records regulations: The Federal rules restrict any use of the information to criminally investigate or prosecute any alcohol or drug abuse patient.[facility] HospitalIn the event this information is protected by the Federal Confidentiality of Alcohol and Drug Abuse Patient Records regulations: The Federal rules restrict any use of the information to criminally investigate or prosecute any alcohol or drug abuse patient.[facility] HospitalIn the event this information is protected by the Federal Confidentiality of Alcohol and Drug Abuse Patient Records regulations: The Federal rules restrict any use of the information to criminally investigate or prosecute any alcohol or drug abuse patient.[facility] HospitalIn the event this information is protected by the Federal Confidentiality of Alcohol and Drug Abuse Patient Records regulations: The Federal rules restrict any use of the information to criminally investigate or prosecute any alcohol or drug abuse patient.[facility] HospitalIn the event this information is protected by the Federal Confidentiality of Alcohol and Drug Abuse Patient Records regulations: The Federal rules restrict any use of the information to criminally investigate or prosecute any alcohol or drug abuse patient.[facility] HospitalIn the event this information is protected by the Federal Confidentiality of Alcohol and Drug Abuse Patient Records regulations: The Federal rules restrict any use of the information to criminally investigate or prosecute any alcohol or drug abuse patient.[facility] HospitalIn the event this information is protected by the Federal Confidentiality of Alcohol and Drug Abuse Patient Records regulations: The Federal rules restrict any use of the information to criminally investigate or prosecute any alcohol or drug abuse patient.[facility] HospitalIn the event this information is protected by the Federal Confidentiality of Alcohol and Drug Abuse Patient Records regulations: The Federal rules restrict any use of the information to criminally investigate or prosecute any alcohol or drug abuse patient.[facility] HospitalIn the event this information is protected by the Federal Confidentiality of Alcohol and Drug Abuse Patient Records regulations: The Federal rules restrict any use of the information to criminally investigate or prosecute any alcohol or drug abuse patient.[facility] HospitalIn the event this information is protected by the Federal Confidentiality of Alcohol and Drug Abuse Patient Records regulations: The Federal rules restrict any use of the information to criminally investigate or prosecute any alcohol or drug abuse patient.[facility] HospitalIn the event this information is protected by the Federal Confidentiality of Alcohol and Drug Abuse Patient Records regulations: The Federal rules restrict any use of the information to criminally investigate or prosecute any alcohol or drug abuse patient.[facility] HospitalIn the event this information is protected by the Federal Confidentiality of Alcohol and Drug Abuse Patient Records regulations: The Federal rules restrict any use of the information to criminally investigate or prosecute any alcohol or drug abuse patient.[facility] HospitalIn the event this information is protected by the Federal Confidentiality of Alcohol and Drug Abuse Patient Records regulations: The Federal rules restrict any use of the information to criminally investigate or prosecute any alcohol or drug abuse patient.[facility] Reason for Visit (unrecogniz ed section and content) COVID + Reason Comments Results Reason Comments Refill Request [...] Care Teams (unrecognized sec tion and content) Half Backer Relationship Specialty Start Date End Date Devon Moreira, DO [address] [place] [address] PCP - General 05/27/00 Half Backer Relationship Specialty Start Date End Date Devon Moreira, DO [address] [place] [address] PCP - General 05/27/00 Half Backer Relationship Specialty Start Date End Date Devon Moreira, DO [address] [place] [address] PCP - General 05/27/00 Half Backer Relationship Specialty Start Date End Date Devon Moreira, DO [address] [place] [address] PCP - General 05/27/00 Half Backer Relationship Specialty Start Date End Date Devon Moreira, DO [address] [place] [address] PCP - General 05/27/00 Half Backer Relationship Specialty Start Date End Date Devon Moreira, DO [address] [place] [address] PCP - General 05/27/00 Half Backer Relationship Specialty Start Date End Date Devon Moreira, DO [address] [place] [address] PCP - General 05/27/00 Half Backer Relationship Specialty Start Date End Date Devon Moreira, DO [address] [place] [address] PCP - General 05/27/00 Half Backer Relationship Specialty Start Date End Date Devon Moreira, DO [address] [place] [address] PCP - General 05/27/00 Half Backer Relationship Specialty Start Date End Date Devon Moreira, DO [address] [place] [address] PCP - General 05/27/00 Half Backer Relationship Specialty Start Date End Date Devon Moreira, DO [address] [place] [address] PCP - General 05/27/00 Half Backer Relationship Specialty Start Date End Date Devon Moreira, DO [address] [place] [address] PCP - General 05/27/00 Half Backer Relationship Specialty Start Date End Date Devon Moreira, DO [address] [place] [address] PCP - General 05/27/00 Half Backer Relationship Specialty Start Date End Date Devon Moreira, DO [address] [place] [address] PCP - General 05/27/00 Half Backer Relationship Specialty Start Date End Date Devon Moreira, DO [address] [place] [address] PCP - General 05/27/00 Half Backer Relationship Specialty Start Date End Date Devon Moreira, DO [address] [place] [address] PCP - General 05/27/00 Half Backer Relationship Specialty Start Date End Date Devon Moreira, DO [address] [place] [address] PCP - General 05/27/00 Half Backer Relationship Specialty Start Date End Date Devon Moreira, DO [address] [place] [address] PCP - General 05/27/00 Half Backer Relationship Specialty Start Date End Date Devon Moreira DO [address] [place] [address] PCP - General 05/27/00 Team Status: Active Member Role Status Dates Devon Lillie Primary Care Provider Active Team Status: Inactive Member Role Status Dates Devon Moreira Primary Care Provider Active Sadia Aguilar APRN Attending Provider Active Half Backer Relationship Specialty Start Date End Date Devon Moreira DO [address] [place] [address] PCP - General 05/27/00 Half Backer Relationship Specialty Start Date End Date Devon Moreira DO [address] [place] [address] PCP - General 05/27/00 PRN Active and Recently Administ ered Medications (unrecognized section and content) Medication Order 01/10/2022 01/11/2022 01/12/2022 lidocaine (PF) 10 mg/mL (1 %) injection (XYLOCAINE) SUBCUTANEOUS, X (OR/PROCEDURE) PRN, Starting on Wed01/12/22 at 1032, Until Wed01/13/22 at 0303, Intraprocedure 1032 (Given - Provid er: Vani Hdz APRN.SUPPLEMENTAL MANAGER) Goals (unrecognized section and content) Goals [...] BE BASED ON THE PRIMARY CLINICAL RECORDS. [email or web address] provides no warranty or guarantee of the accuracy or completeness of information in this document.
[2023-02-19 08:07] LABS: Basophils Percent Auto 0.3 % (0.2-2.0); Eosinophils Absolute Auto 0.2 10^3/uL (0.0-0.7); Eosinophils Percent Auto 2.7 % (0.9-7.0); Hematocrit 35.3 % (42.0-54.0); Hemoglobin 10.9 g/dL (14.0-18.0); Immature Granulocytes Abs Auto 0.01 10^3/uL (0.00-0.03); Immature Granulocytes Pct Auto 0.2 % (0.0-0.5); Lymphocytes Absolute Auto 2.1 10^3/uL (1.2-3.8); Lymphocytes Percent Auto 34.1 % (20.5-60.0); Mean Corpuscular HGB Conc 30.9 g/dL (29.9-35.2); Mean Corpuscular Hemoglobin 27.5 pg (25.9-34.0); Mean Corpuscular Volume 89.1 fL (80.0-94.0); Mean Platelet Volume 10.8 fL (9.5-13.5); Monocytes Absolute Auto 0.8 10^3/uL (0.3-0.8); Monocytes Percent Auto 12.1 % (1.7-12.0); Neutrophils Absolute Auto 3.1 10^3/uL (1.4-6.5); Neutrophils Percent Auto 50.6 % (43.0-75.0); Platelet Count 183 10^3/uL (150-450); Red Blood Count 3.96 10^6/uL (4.70-6.10); White Blood Count 6.2 10^3/uL (4.0-11.0)
[2023-02-19 08:18] LABS: INR 2.11; Prothrombin Time 21.4 sec (9.0-11.6)
[2023-02-19 13:46] LABS: Alanine Aminotransferase 17 U/L (16-63); Albumin Globulin Ratio 0.7; Albumin Level 2.5 g/dL (3.4-5.0); Alkaline Phosphatase 66 U/L (46-116); Aspartate Amino Transferase 24 U/L (15-37); BUN Creatinine Ratio 29.9; Bilirubin Total 0.6 mg/dL (0.2-1.0); Calcium 8.9 mg/dL (8.5-10.1); Carbon Dioxide 31.1 mmol/L (21.0-32.0); Chloride 99 mmol/L (98-107); Estimated GFR (African America 53 (>=60); Estimated GFR (Non-African Ame 44 (>=60); Globulin 3.8 g/dL; Glucose 63 mg/dL (74-106); Potassium 3.1 mmol/L (3.5-5.1); Sodium 131 mmol/L (136-145); Total Protein 6.3 g/dL (6.4-8.2)
[2023-02-24 20:08] LABS: Tacrolimus (FK506), Blood 10.5 ng/mL (2.0-20.0)
== END 2023-02-19 01:30 | disposition home or self-care (01) ==
LOC: LAB 01:29
PROVIDERS: PCP Internal Medicine; Visit Provider Internal Medicine
DX: Z51.81 Encounter for therapeutic drug level monitoring (principal)
CPT/HCPCS: 36415; 80053; 80197; 85025; 85610

== ENCOUNTER 2023-02-26 00:53 | Outpatient (REF) | payer MEDICARE, OTHER, SELFPAY ==
--- OUTSIDE RECORDS SUMMARY | 2023-02-26 01:00 | XMS_ITS | CCD ---
Author Name Unknown Address [address] [place] [address] Organization [employer] Care Team Providers Care Adoption Specialist Name Role Phone PROVIDER, UNKNOWN Attending Unavailable [...] Admitting Unavailable WILLIAM BROOKS Consulting Unavailable RICH TTIUS Consulting Unavailable FAWWAD, DIAMOND H Admitting Unavailable [...] [PYRIDOSTIGMINE BROMIDE] Drug Allergy 2 GI Upset [facility] Work Phone: (1 source) ALLERGIES NOT ON FILE; Translations: [ALLERGIES NOT ON FILE] Propensity to adverse reactions (disorder) [facility] Repository Medications Current Medications Medication [...] 0 Active take 2 tablets by mo [facility] every six hours as needed for pain [...] MEALS January 23, 2019 1:00am K Phos [place]-Sod Phos Di & [place] [phone] MG (5 sources) take 155-852 tablets by mouth twice daily K Phos [place]-Sod Phos Di & [place] 155-852-130 MG 1 tablet Orally twice daily Active take 155-852 tablets by mouth four times daily take 155-852 tablets by mouth four times daily K Phos [place]-Sod Phos Di & [place] 155-852-130 MG 1 tablet Orally Four times [...] needed. docusate sodium 50 mg / sennosides, alf 8.6 mg oral tablet (20 sources) Start: [...] by mouth daily with lunch. Magic [employer] Loving with lunch 7110 mL 0 12/11/2021 Active Comment on above: Take 237 mL by mouth daily with lunch. 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 INSULIN] Onset: 2 Episodic Other aftercare (5 sources) [facility] (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 of anticoagulants; Translations: [[facility] CURRNT USE ANTICOAGULANTS] Onset: 3 Episodic Other [...] 07-30-2006 Episodic Other aftercare (2 sources) Other [place] [facility] ([facility]) drug therapy; Translations: [OTH CARDROOM DRAWING RUNNER CURRENT DRUG THERAPY] Onset: 02-05-2022 Episodic Other aftercare (4 sources) Encounter for orthopedic aftercare following surgical amputation; Translations: [ENC ORTHOPED AFTERCARE FLW SURG AMP] Onset: 02-05-2022 Episodic Other aftercare (4 sources) ocean transportation intermediary (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 of antibiotics; Translations: [[facility] CURRENT USE ANTIBIOTICS] Onset: 12-20-2021 Episodic Other aftercare (1 source) [facility] (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 of aspirin; Translations: [[facility] CURRENT USE OF ASPIRIN] Onset: 01-19-2022 Episodic [...] Test Name Value Interpretation Reference Range Facility [facility] 12-25-2022 [facility] Telephone (TXCTGL) ALEX ALMONTE ([id number]) 1945 M Date Time Provider Department 12/25/22 KIDNEY TXP COORDINATORS TXCTGL During your visit today, we recorded the following information about you: Duane Ryan 12/25/2022 10:41 AM Signed Labs 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 Magic [employer] with lunch aspirin, enteric coated (ASPIRIN, ENTERIC [...] in am? thanks! RF Pts RN at [facility] reports pts sister picks up Rx from [...] Apply 0. (more content not included)... Normal [facility] Office Visiton 09-09-2022 Follow-up visit [id number] Alex Almonte 1945 M Date Provider Department Center 09/09/2022 1596-SARTHAK PARNELL [facility] Family History Problem Relation Age of Onset Cancer Mother Aneurysm Father Cancer Father Parkinsonism Father Family Status - Relation Status Age at Mother Father Level of Service:67231 GA OFFICE/OUTPATIENT ESTABLISHED MOD MDM 30-39 MIN Normal [facility] Glucose Poct Glucometerson 0 07-20-2022 Commemt1 Glu2: Cleaned Meter Normal [facility] Comment on above: Result Comment: PERF ORMED BY: [facility] [address] [place] [address] PATHOLOGIST ENTERTAINMENT CENTRE MANAGER JOSE F ELLIOTT M.D. Performed By: #### G LULS #### Point of Care testing , Glucose [Mass/Vol] 176 mg/dL Normal [facility] Comment on above: Result Comment: [facility] Glucose Reference Range is dependent on time and content of last meal. Glucose of more than 200 mg/dL in a nonstressed, ambulatory subject supports the diagnosis of Diabetes Mellitus. Performed By: #### G LULS #### Point of Care testing , FK506 (TACROLIMUS) WHOLE BLO ODon 07-12-2022 Tacrolimus (FK506), Blood 10.9 ng/mL Normal 2.0-20.0 [facility] Comment on above: Result Comment: Trou gh (immediately following transplant) 15.0 . Trough (steady state, 2 weeks or more after transplant): 3.0 - 8.0 . Performed by LC-MS/MS technology. Performed By: #### F K506T ####[facility] [address] [place], [place] [address]Dr. Farhat Leal CBC AUTO DIFFon 07-10-2022 BASO # 0.0 103/ul Normal 0.0-0.1 [facility] Comment on above: Performed By: #### C BC ####[facility] [address] [place], [place] [address]Dr. Farhat Leal Basophils/100 WBC (Bld) 0.5 % Normal 0.2-2.0 [facility] Comment on above: Performed By: #### C BC ####[facility] C[address]cbwragri[address] [place], [place] [address]Dr. Farhat Leal EO # 0.3 103/ul Normal 0.0-0.7 [facility] Comment on above: Performed By: #### C BC ####[facility] Oyvcn[address]mdk[address] [place], [place] [address]Dr. Farhat Leal Eosinophils/100 WBC (Bld) 4.9 % Normal 0.9-7.0 [facility] Comment on above: Performed By: #### C BC ####[facility] S[address]ljfk[address] [place], [place] [address]Dr. Farhat Leal Erythrocyte distribution width (RBC) [Ratio] 13.8 % Normal 11.0-15.0 [facility] Comment on above: Performed By: #### C BC ####[facility] Lkovybrybe[address] [place], [place] [address]Dr. Farhat Leal Hematocrit (Bld) [Volume fraction] 36.6 % Critically low 42.0-54.0 [facility] Comment on above: Performed By: #### C BC ####[facility] Szvodtlarv[address] [place], [place] [address]Dr. Farhat Leal Hemoglobin (Bld) [Mass/Vol] 12.2 g/dL Critically low 14.0-18.0 [facility] Comment on above: Performed By: #### C BC ####[facility] Z[address]xwspsg30[address] [place] [phone]. Madelynlorri Elvis IG # 0.01 10e3/ul Normal 0.00-0.03 [facility] Comment on above: Performed By: #### C BC ####[facility] Vxuznpejqe8[address] [place] [phone]. Farhat Leal IG % 0.2 % Normal 0.0-0.5 [facility] Comment on above: Performed By: #### C BC ####[facility] Em[address]cxkcxmj[address] [place] [address]Dr. Farhat Leal LYMPH # 2.2 103/ul Normal 1.2-3.8 [facility] Comment on above: Performed By: #### C BC ####[facility] Ufuwwghoml[address]51 [place] [address]Dr. Farhat Leal Lymphocytes/100 WBC (Bld) 33.9 % Normal 20.5-60.0 [facility] Comment on above: Performed By: #### C BC ####[facility] [address]axnonwe6565 [place] [phone]. Farhat Leal MANUAL DIFF REQ NO Normal [facility] Comment on above: Performed By: #### C BC ####[facility] Th[address]tsrmf33[address] [place] [phone]. Farhat Leal MCH (RBC) [Entitic mass] 31.0 pg Normal 25.9-34.0 [facility] Comment on above: Performed By: #### C BC ####[facility] Gfcwtoueci2850 [place] [phone]. Farhat Leal MCHC (RBC) [Mass/Vol] 33.3 g/dL Normal 29.9-35.2 [facility] Comment on above: Performed By: #### C BC ####[facility] Wyqgxnynlc2229 [place] [phone]. Farhat Leal MCV (RBC) [Entitic vol] 93.1 fL Normal 80.0-94.0 [facility] Comment on above: Performed By: #### C BC ####[facility] Tszmrezgpo2433 [place] [phone]. Farhat Leal MONO # 0.7 103/ul Normal 0.3-0.8 [facility] Comment on above: Performed By: #### C BC ####[facility] Pnigritere6966 [place] [phone]. Farhat Leal Monocytes/100 WBC (Bld) 10.8 % Normal 1.7-12.0 [facility] Comment on above: Performed By: #### C BC ####[facility] Iahuhiefcw4106 [place] [phone]. Farhat Leal NEUT # 3.2 103/ul Normal 1.4-6.5 [facility] Comment on above: Performed By: #### C BC ####[facility] Vvxtgdeewi4425 [place] [address]Dr. Farhat Leal Neutrophils/100 WBC (Bld) 49.7 % Normal 43.0-75.0 [facility] Comment on above: Performed By: #### C BC ####[facility] Dvfixunsnp2001 [place] [phone]. Farhat Leal Platelet mean volume (Bld) [Entitic vol] 10.9 fL Normal 9.5-13.5 [facility] Comment on above: Performed By: #### C BC ####[facility] Wvdocfluxg5427 [place] [phone]. Farhat Leal PLT 195 103/ul Normal 150-450 [facility] Comment on above: Performed By: #### C BC ####[facility] Mtyxmsvbqi4411 [place] [phone]. Farhat Leal RBC 3.93 106/ul Critically low 4.70-6.10 [facility] Comment on above: Performed By: #### C BC ####[facility] Ezsbmtkogg6471 [place] [phone]. Farhat Leal WBC 6.4 103/ul Normal 4.0-11.0 [facility] Comment on above: Performed By: #### C BC ####[facility] Rxqetvrbib4381 [place] [address]Dr. Farhat Leal MAGNESIUMon 07-10-2022 Magnesium [Mass/Vol] 1.9 mg/dL Normal 1.8-2.4 [facility] Comment on above: Performed By: #### M Anais PHOS ####[facility] Krjstmgmdf7328 [place] [address]Dr. Farhat Leal PHOSPHORUSon 07-10-2022 Phosphate [Mass/Vol] 4.7 mg/dL Normal 2.6-4.7 [facility] Comment on above: Performed By: #### M ANA ManzoS ####[facility] Xtxmoypnkh0562 [place] [address]Dr. Farhat Leal PROF 14(COMP METB)on 023 Albumin [Mass/Vol] 2.7 g/dL Critically low 3.4-5.0 [facility] Comment on above: Performed By: #### C MP ####[facility] S[address] [place], [place] [address]Dr. Farhat Leal Albumin/Globulin [Mass ratio] 0.8 {ratio} Normal [facility] Comment on above: Performed By: #### C MP ####[facility] I[address]qvnkxfy[address] [place], [place] [address]Dr. Farhat Leal ALP [Catalytic activity/Vol] 59 U/L Normal 46-116 [facility] Comment on above: Performed By: #### C MP ####[facility] Eqloftdagd23[address] [place], [place] [address]Dr. Farhat Leal ALT [Catalytic activity/Vol] 16 U/L Normal 16-63 [facility] Comment on above: Performed By: #### C MP ####[facility] Aavukbizke[address] [place], [place] [address]Dr. Farhat Leal Anion gap [Moles/Vol] 12.3 mmol/L Normal [facility] Comment on above: Performed By: #### C MP ####[facility] Luasvfyier56[address] [place], [place] [address]Dr. Farhat Leal AST [Catalytic activity/Vol] 17 U/L Normal 15-37 [facility] Comment on above: Performed By: #### C MP ####[facility] Mjdjnxwmmc5736 [place] [address]Dr. Farhat Elvis Bilirubin [Mass/Vol] 0.5 mg/dL Normal 0.2-1.0 [facility] Comment on above: Performed By: #### C MP ####[facility] K[address]ymkgwvh8[address] [place], [place] [address]Dr. Farhat Elvis Calcium [Mass/Vol] 8.5 mg/dL Normal 8.5-10.1 [facility] Comment on above: Performed By: #### C MP ####[facility] Qthjyorkzr163[address] [place], [place] [address]Dr. Farhat Elvis Chloride [Moles/Vol] 104 mmol/L Normal 98-107 [facility] Comment on above: Performed By: #### C MP ####[facility] Hbicrfuged1934[address] [place], [place] [address]Dr. Farhat Elvis CO2 [Moles/Vol] 27.6 mmol/L Normal 21.0-32.0 [facility] Comment on above: Performed By: #### C MP ####[facility] Sczyjylpwh9[address] [place], [place] [address]Dr. Farhat Elvis Creatinine [Mass/Vol] 1.79 mg/dL Critically high 0.70-1.30 [facility] Comment on above: Performed By: #### C MP ####[facility] Iwhryxulfq[address] [place], [place] [address]Dr. Farhat Elvis EGFR-AF MALDIVIAN 45 mL/min/1.73m2 Critically low >=60 [facility] Comment on above: Performed By: #### C MP ####[facility] Nnomvurdqw9101[address] [place], [place] [address]Dr. Farhat Lael EGFR-NON AF MALDIVIAN 37 mL/min/1.73m2 Critically low >=60 [facility] Comment on above: Performed By: #### C MP ####[facility] Njbwcoduiw[address] [place], [place] [address]Dr. Farhat Leal Globulin (S) [Mass/Vol] 3.2 g/dL Normal [facility] Comment on above: Performed By: #### C MP ####[facility] Mswnkhdzdq7900 [place] [address]Dr. Farhat Leal Glucose [Mass/Vol] 203 mg/dL Critically high 74-106 [facility] Comment on above: Performed By: #### C MP ####[facility] Xmediuzheg8681 [place] [address]Dr. Farhat Leal Potassium [Moles/Vol] 3.9 mmol/L Normal 3.5-5.1 [facility] Comment on above: Performed By: #### C MP ####[facility] Ybozzrtfrq1804[address] [place], [place] [address]Dr. Farhat Leal Protein [Mass/Vol] 5.9 g/dL Critically low 6.4-8.2 Th [facility] Comment on above: Performed By: #### C MP ####[facility] Nnopmmqmnr64[address] [place], [place] [address]Dr. Farhat Leal Sodium [Moles/Vol] 140 mmol/L Normal 136-145 [facility] Comment on above: Performed By: #### C MP ####[facility] Tqyuivlrhz[address] [place], [place] [address]Dr. Farhat Leal Urea nitrogen [Mass/Vol] 61.0 mg/dL Critically high 7.0-18.0 [facility] Comment on above: Performed By: #### C MP ####[facility] H[address]irkycwz[address] [place], [place] [address]Dr. Farhat Leal Urea nitrogen/Creatinine [Mass ratio] 34.1 mg/mg Normal [facility] Comment on above: Performed By: #### C MP ####[facility] Ozwfgahftg04[address] [place], [place] [address]Dr. Farhat Leal PROTIMEon 07-10-2022 INR Coag (PPP) [Relative time] 2.95 {INR} Normal [facility] Comment on above: Performed By: #### P T ####[facility] Olajetfpgx[address] [place], [place] [address]Dr. Farhat Leal INR GUIDELINES SEE BELOW Normal [facility] Comment on above: Result Comment: MALINA RED INR: 2.0 - 3.0 CONDITIONS NOT LISTED BELOW 2.5 - 3.5 FOR PROSTHETIC HEART VALVE REPLACEMENT 2.5 - 3.5 RECURRENT THROMBOSIS Performed By: #### P T ####[facility] Kfmyjtqhaq87[address] [place], [place] [address]Dr. Farhat Leal PT Coag (PPP) [Time] 29.4 s Critically high 9.0-11.6 [facility] Comment on above: Performed By: #### P T ####[facility] Kbdnckssci64[address] [place], [place] [address]Dr. Farhat Leal FK506 (TACROLIMUS) WHOLE BLO ODon 07-07-2022 Tacrolimus (FK506), Blood 8.3 ng/mL Normal 2.0-20.0 [facility] Comment on above: Result Comment: Trou gh (immediately following transplant) 15.0 . Trough (steady state, 2 weeks or more after transplant): 3.0 - 8.0 . Performed by LC-MS/MS technology. Performed By: #### F K506T ####[facility] Khpskdbxms[address] [place], [place] [address]Dr. Farhat Leal CBC AUTO DIFFon 07-03-2022 BASO # 0.0 103/ul Normal 0.0-0.1 [facility] Comment on above: Performed By: #### C BC ####[facility] Nixnlpotvf23[address] [place], [place] [address]Dr. Farhat Leal Basophils/100 WBC (Bld) 0.6 % Normal 0.2-2.0 [facility] Comment on above: Performed By: #### C BC ####[facility] Rzbggcasvi69[address] [place], [place] [address]Dr. Farhat Leal EO # 0.3 103/ul Normal 0.0-0.7 [facility] Comment on above: Performed By: #### C BC ####[facility] Mqhwidurgs5035[address] [place], [place] [address]Dr. Farhat Leal Eosinophils/100 WBC (Bld) 4.1 % Normal 0.9-7.0 [facility] Comment on above: Performed By: #### C BC ####[facility] Yfycdnylfj0025 [place] [address]Dr. Farhat Leal Erythrocyte distribution width (RBC) [Ratio] 14.0 % Normal 11.0-15.0 [facility] Comment on above: Performed By: #### C BC ####[facility] Gcfuuccqof1968[address] [place], [place] [address]Dr. Farhat Leal Hematocrit (Bld) [Volume fraction] 35.9 % Critically low 42.0-54.0 [facility] Comment on above: Performed By: #### C BC ####[facility] Efnsughjiu074[address] [place], [place] [address]Dr. Farhat Leal Hemoglobin (Bld) [Mass/Vol] 12.0 g/dL Critically low 14.0-18.0 [facility] Comment on above: Performed By: #### C BC ####[facility] Ibgbngsdjy[address] [place], [place] [address]Dr. Farhat Leal IG # 0.04 10e3/ul Critically high 0.00-0.03 [facility] Comment on above: Performed By: #### C BC ####[facility] Mbvfgdafec70[address] [place], [place] [address]Dr. Farhat Leal IG % 0.6 % Critically high 0.0-0.5 [facility] Comment on above: Performed By: #### C BC ####[facility] Leidmmokrs[address] [place], [place] [address]Dr. Farhat Leal LYMPH # 1.5 103/ul Normal 1.2-3.8 [facility] Comment on above: Performed By: #### C BC ####[facility] Baivtvoask87[address] [place], [place] [address]Dr. Farhat Leal Lymphocytes/100 WBC (Bld) 21.5 % Normal 20.5-60.0 [facility] Comment on above: Performed By: #### C BC ####[facility] Luubgovcas4[address] [place], [place] [address]Dr. Farhat Leal MANUAL DIFF REQ NO Normal [facility] Comment on above: Performed By: #### C BC ####[facility] Zkllitszuv7585 [place] [phone]. Farhat Elvis MCH (RBC) [Entitic mass] 30.8 pg Normal 25.9-34.0 [facility] Comment on above: Performed By: #### C BC ####[facility] Qyxkorrayg8630 [place] [address]Dr. Farhat Elvis MCHC (RBC) [Mass/Vol] 33.4 g/dL Normal 29.9-35.2 [facility] Comment on above: Performed By: #### C BC ####[facility] Hftuslwzut4[address] [place], [place] [address]Dr. Madelynlorri Leal MCV (RBC) [Entitic vol] 92.1 fL Normal 80.0-94.0 [facility] Comment on above: Performed By: #### C BC ####[facility] Mknmrehrbe[address] [place], [place] [address]Dr. Farhat Leal MONO # 0.6 103/ul Normal 0.3-0.8 [facility] Comment on above: Performed By: #### C BC ####[facility] J[address]xlsarzp67[address] [place], [place] [address]Dr. Madelynlorri Leal Monocytes/100 WBC (Bld) 8.7 % Normal 1.7-12.0 [facility] Comment on above: Performed By: #### C BC ####[facility] Ekfgokfxcq[address] [place], [place] [address]Dr. Farhat Leal NEUT # 4.4 103/ul Normal 1.4-6.5 [facility] Comment on above: Performed By: #### C BC ####[facility] Gjzlmptzbe18[address] [place], [place] [address]DrSkylar Leal Neutrophils/100 WBC (Bld) 64.5 % Normal 43.0-75.0 [facility] Comment on above: Performed By: #### C BC ####[facility] Agsqyktzaj49[address] [place], [place] [address]Dr. Farhat Leal Platelet mean volume (Bld) [Entitic vol] 10.1 fL Normal 9.5-13.5 [facility] Comment on above: Performed By: #### C BC ####[facility] Difwszezow[address] [place] [address]Dr. Madelynlorri Elvis PLT 177 103/ul Normal 150-450 [facility] Comment on above: Performed By: #### C BC ####[facility] Utkyfjklhc5081 [place] [phone]. Madelynlorri Elvis RBC 3.90 106/ul Critically low 4.70-6.10 [facility] Comment on above: Performed By: #### C BC ####[facility] Agdfuvsoaa5775 [place] [phone]. Madelynlorri Elvis WBC 6.8 103/ul Normal 4.0-11.0 [facility] Comment on above: Performed By: #### C BC ####[facility] Fxbwfqpgwi5554 [place] [address]Dr. Farhat Leal PROF 14(COMP METB)on 023 Albumin [Mass/Vol] 2.8 g/dL Critically low 3.4-5.0 [facility] Comment on above: Performed By: #### C MP ####[facility] Qeicmlmocr3672 [place] [address]Dr. Farhat Leal Albumin/Globulin [Mass ratio] 0.8 {ratio} Normal [facility] Comment on above: Performed By: #### C MP ####[facility] Jjdexmwymf5962 [place] [address]Dr. Farhat Leal ALP [Catalytic activity/Vol] 68 U/L Normal 46-116 [facility] Comment on above: Performed By: #### C MP ####[facility] Ierthvmlxe1270 [place] [address]Dr. Farhat Leal ALT [Catalytic activity/Vol] 20 U/L Normal 16-63 [facility] Comment on above: Performed By: #### C MP ####[facility] Ujkepdjjoe2536 [place] [address]DrSkylar Leal Anion gap [Moles/Vol] 11.1 mmol/L Normal [facility] Comment on above: Performed By: #### C MP ####[facility] Kmyshstqmt8216 [place] [phone]. Farhat Leal AST [Catalytic activity/Vol] 22 U/L Normal 15-37 [facility] Comment on above: Performed By: #### C MP ####[facility] Whfwnlxjej1329 [place] [phone]. Farhat Leal Bilirubin [Mass/Vol] 0.4 mg/dL Normal 0.2-1.0 [facility] Comment on above: Performed By: #### C MP ####[facility] Wycxisxskl1591 [place] [address]Dr. Farhat Leal Calcium [Mass/Vol] 8.5 mg/dL Normal 8.5-10.1 [facility] Comment on above: Performed By: #### C MP ####[facility] T[address]etrdymdr2[address] [place], [place] [address]Dr. Farhat Leal Chloride [Moles/Vol] 106 mmol/L Normal 98-107 [facility] Comment on above: Performed By: #### C MP ####[facility] Z[address]nuhmyyvd05[address] [place], [place] [address]Dr. Farhat Leal CO2 [Moles/Vol] 29.1 mmol/L Normal 21.0-32.0 [facility] Comment on above: Performed By: #### C MP ####[facility] Y[address]bgdum[address] [place], [place] [id number]. Farhat Leal Creatinine [Mass/Vol] 1.70 mg/dL Critically high 0.70-1.30 [facility] Comment on above: Performed By: #### C MP ####[facility] Aynexpkhxm5360 [place] [phone]. Farhat Elvis EGFR-AF MALDIVIAN 48 mL/min/1.73m2 Critically low >=60 [facility] Comment on above: Performed By: #### C MP ####[facility] Hzsldanezo0819 [place] [phone]. Farhat Leal EGFR-NON AF MALDIVIAN 39 mL/min/1.73m2 Critically low >=60 [facility] Comment on above: Performed By: #### C MP ####[facility] Pqnxfdwlvv4451 [place] [address]Dr. Farhat Leal Globulin (S) [Mass/Vol] 3.6 g/dL Normal [facility] Comment on above: Performed By: #### C MP ####[facility] Aqsvyjutst8714 [place] [address]Dr. Farhat Leal Glucose [Mass/Vol] 312 mg/dL Critically high 74-106 [facility] Comment on above: Performed By: #### C MP ####[facility] Rqixerlquq3911 [place] [address]Dr. Farhat Leal Potassium [Moles/Vol] 4.2 mmol/L Normal 3.5-5.1 [facility] Comment on above: Performed By: #### C MP ####[facility] Idwxmbpyvr[address] [place], [place] [address]Dr. Farhat Leal Protein [Mass/Vol] 6.4 g/dL Normal 6.4-8.2 [facility] Comment on above: Performed By: #### C MP ####[facility] Dazzrssvrn15[address] [place], [place] [address]Dr. Farhat Leal Sodium [Moles/Vol] 142 mmol/L Normal 136-145 [facility] Comment on above: Performed By: #### C MP ####[facility] Jwgfewlnbf14[address] [place], [place] [address]Dr. Farhat Leal Urea nitrogen [Mass/Vol] 49.0 mg/dL Critically high 7.0-18.0 [facility] Comment on above: Performed By: #### C MP ####[facility] Aqfpcjcqja08[address] [place], [place] [address]Dr. Farhat Leal Urea nitrogen/Creatinine [Mass ratio] 28.8 mg/mg Normal [facility] Comment on above: Performed By: #### C MP ####[facility] Phbbwziqku76[address] [place] [address]Dr. Farhat Elvis PROTIMEon 07-03-2022 INR Coag (PPP) [Relative time] 2.23 {INR} Normal [facility] Comment on above: Performed By: #### P T ####[facility] Guyolnqyqz14[address] [place] [address]Dr. Farhat Leal INR GUIDELINES SEE BELOW Normal [facility] Comment on above: Result Comment: MALINA RED INR: 2.0 - 3.0 CONDITIONS NOT LISTED BELOW 2.5 - 3.5 FOR PROSTHETIC HEART VALVE REPLACEMENT 2.5 - 3.5 RECURRENT THROMBOSIS Performed By: #### P T ####[facility] Iguauqzjus9[address] [place], [place] [address]Dr. Farhat Leal PT Coag (PPP) [Time] 22.6 s Critically high 9.0-11.6 [facility] Comment on above: Performed By: #### P T ####[facility] Cbjkvpccyq6[address] [place], [place] [address]Dr. Farhat Leal FK506 (TACROLIMUS) WHOLE BLO ODon 06-29-2022 Tacrolimus (FK506), Blood 12.2 ng/mL Normal 2.0-20.0 [facility] Comment on above: Result Comment: Trou gh (immediately following transplant) 15.0 . Trough (steady state, 2 weeks or more after transplant): 3.0 - 8.0 . Performed by LC-MS/MS technology. Performed By: #### F K506T ####[facility] Cvojhowcld219[address] [place], [place] [address]Dr. Farhat Leal CBC AUTO DIFFon 06-26-2022 BASO # 0.0 103/ul Normal 0.0-0.1 [facility] Comment on above: Performed By: #### C BC ####[facility] Zgviueqsdg9294[address] [place], [place] [address]Dr. Farhat Leal Basophils/100 WBC (Bld) 0.5 % Normal 0.2-2.0 [facility] Comment on above: Performed By: #### C BC ####[facility] Wluynzyype5030 [place] [address]Dr. Farhat Leal EO # 0.3 103/ul Normal 0.0-0.7 [facility] Comment on above: Performed By: #### C BC ####[facility] Reqildekeb8667 [place] [phone]. Farhat Leal Eosinophils/100 WBC (Bld) 4.3 % Normal 0.9-7.0 [facility] Comment on above: Performed By: #### C BC ####[facility] Iudgkloytj1104 [place] [address]Dr. Farhat Leal Erythrocyte distribution width (RBC) [Ratio] 14.1 % Normal 11.0-15.0 [facility] Comment on above: Performed By: #### C BC ####[facility] Alwwyyrpno1589[address] [place], [place] [address]Dr. Farhat Leal Hematocrit (Bld) [Volume fraction] 35.4 % Critically low 42.0-54.0 [facility] Comment on above: Performed By: #### C BC ####[facility] Cznaitxxfn89[address] [place], [place] [address]Dr. Farhat Leal Hemoglobin (Bld) [Mass/Vol] 11.8 g/dL Critically low 14.0-18.0 [facility] Comment on above: Performed By: #### C BC ####[facility] Zmvgfccvgg0332[address] [place], [place] [address]Dr. Farhat Leal IG # 0.02 10e3/ul Normal 0.00-0.03 [facility] Comment on above: Performed By: #### C BC ####[facility] Ywkhznyxfd6[address] [place], [place] [address]Dr. Farhat Leal IG % 0.3 % Normal 0.0-0.5 [facility] Comment on above: Performed By: #### C BC ####[facility] Qgwwunarxe6943[address] [place], [place] [address]Dr. Farhat Leal LYMPH # 2.4 103/ul Normal 1.2-3.8 [facility] Comment on above: Performed By: #### C BC ####[facility] Mlgpcotldf0256[address] [place], [place] [address]Dr. Farhat Leal Lymphocytes/100 WBC (Bld) 40.4 % Normal 20.5-60.0 [facility] Comment on above: Performed By: #### C BC ####[facility] Flsmogsqej8337 [place] [phone]. Farhat Leal MANUAL DIFF REQ NO Normal [facility] Comment on above: Performed By: #### C BC ####[facility] Fminuebuqk9752 [place] [phone]. Farhat Leal MCH (RBC) [Entitic mass] 31.0 pg Normal 25.9-34.0 [facility] Comment on above: Performed By: #### C BC ####[facility] Qswvndtsub4473[address] [place], [place] [address]Dr. Farhat Leal MCHC (RBC) [Mass/Vol] 33.3 g/dL Normal 29.9-35.2 [facility] Comment on above: Performed By: #### C BC ####[facility] Juaaoytwtp415[address] [place], [place] [address]Dr. Farhat Leal MCV (RBC) [Entitic vol] 92.9 fL Normal 80.0-94.0 [facility] Comment on above: Performed By: #### C BC ####[facility] Pjuylqdcum0522[address] [place], [place] [address]Dr. Farhat Leal MONO # 0.7 103/ul Normal 0.3-0.8 [facility] Comment on above: Performed By: #### C BC ####[facility] Uwjsjafdsz9447[address] [place], [place] [address]Dr. Farhat Elvis Monocytes/100 WBC (Bld) 11.1 % Normal 1.7-12.0 [facility] Comment on above: Performed By: #### C BC ####[facility] Wlmruhfnul[address] [place], [place] [id number]. Farhat Leal NEUT # 2.6 103/ul Normal 1.4-6.5 [facility] Comment on above: Performed By: #### C BC ####[facility] Uwcrixkcic6578[address] [place], [place] [address]Dr. Farhat Leal Neutrophils/100 WBC (Bld) 43.4 % Normal 43.0-75.0 [facility] Comment on above: Performed By: #### C BC ####[facility] Chcqkdbyeb8829 [place] [phone]. Farhat Leal Platelet mean volume (Bld) [Entitic vol] 10.4 fL Normal 9.5-13.5 [facility] Comment on above: Performed By: #### C BC ####[facility] Duphqmhwik4089 [place] [phone]. Farhat Leal PLT 211 103/ul Normal 150-450 [facility] Comment on above: Performed By: #### C BC ####[facility] Xlioyzrtyp7426 [place] [phone]. Farhat Leal RBC 3.81 106/ul Critically low 4.70-6.10 [facility] [place] Comment on above: Performed By: #### C BC ####[facility] Rzoqvejgfj5538 [place] [phone]. Farhat Leal WBC 6.0 103/ul Normal 4.0-11.0 [facility] Comment on above: Performed By: #### C BC ####[facility] Ukfwefcfgx3224 [place] [address]Dr. Farhat Leal PROF 14(COMP METB)on 023 Albumin [Mass/Vol] 2.6 g/dL Critically low 3.4-5.0 [facility] Comment on above: Performed By: #### C MP ####[facility] Keelkubfrm0897 [place] [phone]. Farhat Leal Albumin/Globulin [Mass ratio] 0.8 {ratio} Normal [facility] Comment on above: Performed By: #### C MP ####[facility] Iremphudpj9576 [place] [phone]. Farhat Leal ALP [Catalytic activity/Vol] 64 U/L Normal 46-116 [facility] Comment on above: Performed By: #### C MP ####[facility] Shoyueldan7157 [place] [address]Dr. Farhat Leal ALT [Catalytic activity/Vol] 18 U/L Normal 16-63 [facility] Comment on above: Performed By: #### C MP ####[facility] Ykjnzpyxtj1912 [place] [phone]. Farhat Leal Anion gap [Moles/Vol] 10.2 mmol/L Normal [facility] Comment on above: Performed By: #### C MP ####[facility] Ziqqlscqzn6340 [place] [phone]. Farhat Leal AST [Catalytic activity/Vol] 16 U/L Normal 15-37 [facility] Comment on above: Performed By: #### C MP ####[facility] Sqsmsvuzeb7084 [place] [phone]. Farhat Leal Bilirubin [Mass/Vol] 0.6 mg/dL Normal 0.2-1.0 [facility] Comment on above: Performed By: #### C MP ####[facility] Iwnibcrriw1469 [place] [address]Dr. Farhat Leal Calcium [Mass/Vol] 8.5 mg/dL Normal 8.5-10.1 [facility] Comment on above: Performed By: #### C MP ####[facility] Vhtrpbojlu0167 [place] [phone]. Farhat Leal Chloride [Moles/Vol] 106 mmol/L Normal 98-107 [facility] Comment on above: Performed By: #### C MP ####[facility] Qyvnbdaswj0644 [place] [phone]. Farhat Leal CO2 [Moles/Vol] 29.8 mmol/L Normal 21.0-32.0 [facility] Comment on above: Performed By: #### C MP ####[facility] Dhyinfwrta0642 [place] [phone]. Farhat Leal Creatinine [Mass/Vol] 1.60 mg/dL Critically high 0.70-1.30 [facility] Comment on above: Performed By: #### C MP ####[facility] Iifpyrwrvx0768 [place] [phone]. Farhat Leal EGFR-AF MALDIVIAN 51 mL/min/1.73m2 Critically low >=60 [facility] Comment on above: Performed By: #### C MP ####[facility] Gnoepiyphl6661 [place] [phone]. Farhat Leal EGFR-NON AF MALDIVIAN 42 mL/min/1.73m2 Critically low >=60 [facility] Comment on above: Performed By: #### C MP ####[facility] Ppzjsuvpkk5205 [place] [phone]. Farhat Leal Globulin (S) [Mass/Vol] 3.4 g/dL Normal [facility] Comment on above: Performed By: #### C MP ####[facility] Vogxsoqiaa1816 [place] [phone]. Farhat Leal Glucose [Mass/Vol] 178 mg/dL Critically high 74-106 [facility] Comment on above: Performed By: #### C MP ####[facility] Vjadboqkwu1903 [place] [phone]. Farhat Leal Potassium [Moles/Vol] 4.0 mmol/L Normal 3.5-5.1 [facility] Comment on above: Performed By: #### C MP ####[facility] Plnlrbqypj4114 [place] [phone]. Farhat Leal Protein [Mass/Vol] 6.0 g/dL Critically low 6.4-8.2 [facility] Comment on above: Performed By: #### C MP ####[facility] Xjsfribfnb8881 [place] [phone]. Farhat Leal Sodium [Moles/Vol] 142 mmol/L Normal 136-145 [facility] Comment on above: Performed By: #### C MP ####[facility] Gewejyufci5268 [place] [phone]. Farhat Leal Urea nitrogen [Mass/Vol] 49.0 mg/dL Critically high 7.0-18.0 [facility] Comment on above: Performed By: #### C MP ####[facility] Btovtcdpuq0924 [place] [phone]. Farhat Leal Urea nitrogen/Creatinine [Mass ratio] 30.6 mg/mg Normal [facility] Comment on above: Performed By: #### C MP ####[facility] Ulzjwiewmm9460 [place] [address]Dr. Farhat Leal PROTIMEon 06-26-2022 INR Coag (PPP) [Relative time] 1.77 {INR} Normal [facility] Comment on above: Performed By: #### P T ####[facility] Psbvhkfadf411[address] [place], [place] [address]Dr. Farhat Leal INR GUIDELINES SEE BELOW Normal [facility] Comment on above: Result Comment: MALINA RED INR: 2.0 - 3.0 CONDITIONS NOT LISTED BELOW 2.5 - 3.5 FOR PROSTHETIC HEART VALVE REPLACEMENT 2.5 - 3.5 RECURRENT THROMBOSIS Performed By: #### P T ####[facility] Pyickewrln57[address] [place], [place] [address]Dr. Farhat Leal PT Coag (PPP) [Time] 18.2 s Critically high 9.0-11.6 [facility] Comment on above: Performed By: #### P T ####[facility] Lwlgzxjwdw3412[address] [place], [place] [address]DrSkylar Leal FK506 (TACROLIMUS) WHOLE BLO ODon 06-22-2022 Tacrolimus (FK506), Blood 24.5 ng/mL Invalid Interpretation Code 2.0-20.0 [facility] Comment on above: Result Comment: Trou gh (immediately following transplant) 15.0 . Trough (steady state, 2 weeks or more after transplant): 3.0 - 8.0 . Performed by LC-MS/MS technology.Patient drug level exceeds published reference range. Evaluateclinically for signs of potential toxicity. Performed By: #### F K506T ####[facility] Dsxnhrzutd9117[address] [place], [place] [address]DrSkylar Leal CBC AUTO DIFFon 06-19-2022 BASO # 0.1 103/ul Normal 0.0-0.1 [facility] Comment on above: Performed By: #### C BC ####[facility] Cnhcfjgzqz9038 [place] [address]DrSkylar Leal Basophils/100 WBC (Bld) 0.7 % Normal 0.2-2.0 [facility] Comment on above: Performed By: #### C BC ####[facility] Lbumyjkfwn3547 [place] [phone]. Farhat Leal EO # 0.4 103/ul Normal 0.0-0.7 [facility] Comment on above: Performed By: #### C BC ####[facility] Jugnklhvuo8944 [place] [phone]. Farhat Leal Eosinophils/100 WBC (Bld) 5.7 % Normal 0.9-7.0 [facility] Comment on above: Performed By: #### C BC ####[facility] Hucyvgkzdt7968[address] [place], [place] [address]Dr. Farhat Leal Erythrocyte distribution width (RBC) [Ratio] 14.5 % Normal 11.0-15.0 [facility] Comment on above: Performed By: #### C BC ####[facility] Hztafvsdwm694[address] [place], [place] [address]Dr. Farhat Leal Hematocrit (Bld) [Volume fraction] 34.1 % Critically low 42.0-54.0 [facility] Comment on above: Performed By: #### C BC ####[facility] Fztlqdughr3235 [place] [address]Dr. Farhat Leal Hemoglobin (Bld) [Mass/Vol] 11.3 g/dL Critically low 14.0-18.0 [facility] Comment on above: Performed By: #### C BC ####[facility] Byuhgefkak8712[address] [place], [place] [address]Dr. Farhat Leal IG # 0.02 10e3/ul Normal 0.00-0.03 [facility] Comment on above: Performed By: #### C BC ####[facility] Wncbfzkvpe1804 [place] [address]Dr. Farhat Leal IG % 0.3 % Normal 0.0-0.5 [facility] Comment on above: Performed By: #### C BC ####[facility] Toyfmeuhlk[address] [place], [place] [address]Dr. Farhat Leal LYMPH # 3.1 103/ul Normal 1.2-3.8 [facility] Comment on above: Performed By: #### C BC ####[facility] Pduinlyqej2347 [place] [phone]. Farhat Leal Lymphocytes/100 WBC (Bld) 40.6 % Normal 20.5-60.0 [facility] Comment on above: Performed By: #### C BC ####[facility] Xxkmmcetmb4416 [place] [phone]. Farhat Elvis MANUAL DIFF REQ NO Normal [facility] Comment on above: Performed By: #### C BC ####[facility] Vqyzqxmfhs7563 [place] [phone]. Farhat Elvis MCH (RBC) [Entitic mass] 30.6 pg Normal 25.9-34.0 [facility] Comment on above: Performed By: #### C BC ####[facility] Ijmtaxlwxb3206[address] [place], [place] [address]Dr. Farhat Elvis MCHC (RBC) [Mass/Vol] 33.1 g/dL Normal 29.9-35.2 [facility] Comment on above: Performed By: #### C BC ####[facility] Zlatgspwtu6658 [place] [phone]. Farhat Elvis MCV (RBC) [Entitic vol] 92.4 fL Normal 80.0-94.0 [facility] Comment on above: Performed By: #### C BC ####[facility] Dyzaubrixd0816 [place] [address]Dr. Madelynlorri Elvis MONO # 0.8 103/ul Normal 0.3-0.8 [facility] Comment on above: Performed By: #### C BC ####[facility] Cpmnyhncxl9356 [place] [phone]. Madelynlorri Leal Monocytes/100 WBC (Bld) 10.6 % Normal 1.7-12.0 [facility] Comment on above: Performed By: #### C BC ####[facility] Cfkrclpmsn1948[address] [place], [place] [address]Dr. Farhat Leal NEUT # 3.2 103/ul Normal 1.4-6.5 [facility] Comment on above: Performed By: #### C BC ####[facility] Psedaccxli4608 [place] [phone]. Farhat Leal Neutrophils/100 WBC (Bld) 42.1 % Critically low 43.0-75.0 [facility] Comment on above: Performed By: #### C BC ####[facility] Cgjlfemcpa5601 [place] [phone]. Farhat Leal Platelet mean volume (Bld) [Entitic vol] 10.6 fL Normal 9.5-13.5 [facility] Comment on above: Performed By: #### C BC ####[facility] Aafftovpci3604 [place] [phone]. Farhat Leal PLT 187 103/ul Normal 150-450 [facility] Comment on above: Performed By: #### C BC ####[facility] Ewhdivfebx1394 [place] [phone]. Farhat Leal RBC 3.69 106/ul Critically low 4.70-6.10 [facility] Comment on above: Performed By: #### C BC ####[facility] Pqppcjchst1383 [place] [phone]. Farhat Leal WBC 7.7 103/ul Normal 4.0-11.0 [facility] Comment on above: Performed By: #### C BC ####[facility] Wtadgkykpk7537 [place] [address]Dr. Farhat Leal PROF 14(COMP METB)on 023 Albumin [Mass/Vol] 2.5 g/dL Critically low 3.4-5.0 [facility] Comment on above: Performed By: #### C MP ####[facility] Nlnbngpwqz4483 [place] [address]Dr. Farhat Leal Albumin/Globulin [Mass ratio] 0.8 {ratio} Normal [facility] Comment on above: Performed By: #### C MP ####[facility] Ztsjdmrhbc5230 [place] [phone]. Madelynlorri Elvis ALP [Catalytic activity/Vol] 60 U/L Normal 46-116 [facility] Comment on above: Performed By: #### C MP ####[facility] Grgmtaxmvz1800 [place] [phone]. Farhat Leal ALT [Catalytic activity/Vol] 16 U/L Normal 16-63 [facility] Comment on above: Performed By: #### C MP ####[facility] Lurrcqbwuy0200 [place] [phone]. Farhat Leal Anion gap [Moles/Vol] 9.1 mmol/L Normal [facility] Comment on above: Performed By: #### C MP ####[facility] Jnemrqojhf3395 [place] [phone]. Farhat Leal AST [Catalytic activity/Vol] 31 U/L Normal 15-37 [facility] Comment on above: Performed By: #### C MP ####[facility] Vpyhjatoty4145 [place] [address]Dr. Farhat Leal Bilirubin [Mass/Vol] 0.3 mg/dL Normal 0.2-1.0 [facility] Comment on above: Performed By: #### C MP ####[facility] Pewjbaevrp8253 [place] [phone]. Farhat Leal Calcium [Mass/Vol] 8.2 mg/dL Critically low 8.5-10.1 [facility] Comment on above: Performed By: #### C MP ####[facility] Eldvyakwal[address] [place], [place] [address]Dr. Farhat Leal Chloride [Moles/Vol] 106 mmol/L Normal 98-107 [facility] Comment on above: Performed By: #### C MP ####[facility] Yostbzunlu1614 [place] [phone]. Farhat Leal CO2 [Moles/Vol] 27.0 mmol/L Normal 21.0-32.0 [facility] Comment on above: Performed By: #### C MP ####[facility] Mytmhltyru8239 [place] [phone]. Farhat Leal Creatinine [Mass/Vol] 1.51 mg/dL Critically high 0.70-1.30 [facility] Comment on above: Performed By: #### C MP ####[facility] Nquyihzmqz0741 [place], [place] [address]Py. Farhat Leal EGFR-AF MALDIVIAN 55 mL/min/1.73m2 Critically low >=60 [facility] Comment on above: Performed By: #### C MP ####[facility] Xbanigpwfh7724 [place] [phone]. Farhat Leal EGFR-NON AF MALDIVIAN 45 mL/min/1.73m2 Critically low >=60 [facility] Comment on above: Performed By: #### C MP ####[facility] Rwnynmlsrq0414 [place] [phone]. Farhat Leal Globulin (S) [Mass/Vol] 3.2 g/dL Normal [facility] Comment on above: Performed By: #### C MP ####[facility] Avkckecptt5090 [place] [phone]. Farhat Leal Glucose [Mass/Vol] 165 mg/dL Critically high 74-106 [facility] Comment on above: Performed By: #### C MP ####[facility] Bdxgoqoavu1745 [place] [phone]. Farhat Leal Potassium [Moles/Vol] 4.1 mmol/L Normal 3.5-5.1 [facility] Comment on above: Performed By: #### C MP ####[facility] Aukgiqdaqn4009 [place] [phone]. Farhat Leal Protein [Mass/Vol] 5.7 g/dL Critically low 6.4-8.2 [facility] Comment on above: Performed By: #### C MP ####[facility] Wkxdlmnfhv5367 [place] [phone]. Farhat Leal Sodium [Moles/Vol] 138 mmol/L Normal 136-145 [facility] Comment on above: Performed By: #### C MP ####[facility] Rdwrecryqc6901 [place] [phone]. Farhat Leal Urea nitrogen [Mass/Vol] 51.0 mg/dL Critically high 7.0-18.0 [facility] Comment on above: Performed By: #### C MP ####[facility] Gjakxouobu4587[address] [place], [place] [address]Dr. Farhat Leal Urea nitrogen/Creatinine [Mass ratio] 33.8 mg/mg Normal [facility] Comment on above: Performed By: #### C MP ####[facility] Rcwhipoajs225[address] [place], [place] [address]DrSkylar Leal FK506 (TACROLIMUS) WHOLE BLO ODon 06-15-2022 Tacrolimus (FK506), Blood 16.4 ng/mL Normal 2.0-20.0 [facility] Comment on above: Result Comment: Trou gh (immediately following transplant) 15.0 . Trough (steady state, 2 weeks or more after transplant): 3.0 - 8.0 . Performed by LC-MS/MS technology. Performed By: #### F K506T ####[facility] Qncqlcacsd3696[address] [place], [place] [address]DrSkylar Leal PROTIMEon 06-15-2022 INR Coag (PPP) [Relative time] 1.64 {INR} Normal [facility] Comment on above: Performed By: #### P T ####[facility] Uakowmzxpn7622[address] [place], [place] [address]DrSkylar Leal INR GUIDELINES SEE BELOW Normal [facility] Comment on above: Result Comment: MALINA RED INR: 2.0 - 3.0 CONDITIONS NOT LISTED BELOW 2.5 - 3.5 FOR PROSTHETIC HEART VALVE REPLACEMENT 2.5 - 3.5 RECURRENT THROMBOSIS Performed By: #### P T ####[facility] Ihgcfgjgts057[address] [place], [place] [address]DrSkylar Leal PT Coag (PPP) [Time] 16.9 s Critically high 9.0-11.6 [facility] Comment on above: Performed By: #### P T ####[facility] Nuvzcglqqb2062[address] [place], [place] [address]DrSkylar Leal CBC AUTO DIFFon 06-12-2022 BASO # 0.0 103/ul Normal 0.0-0.1 [facility] Comment on above: Performed By: #### C BC ####[facility] Uoczfikidc8916[address] [place], [place] [address]DrSkylar Leal Basophils/100 WBC (Bld) 0.4 % Normal 0.2-2.0 [facility] Comment on above: Performed By: #### C BC ####[facility] Dfynxczzcx825[address] [place], [place] [address]Dr. Farhat Leal EO # 0.4 103/ul Normal 0.0-0.7 [facility] Comment on above: Performed By: #### C BC ####[facility] Wwasagtyfg4023[address] [place], [place] [address]Dr. aFrhat Leal Eosinophils/100 WBC (Bld) 5.4 % Normal 0.9-7.0 [facility] Comment on above: Performed By: #### C BC ####[facility] Bzexbikmpd3484[address] [place], [place] [address]Dr. Farhat Leal Erythrocyte distribution width (RBC) [Ratio] 14.7 % Normal 11.0-15.0 [facility] Comment on above: Performed By: #### C BC ####[facility] Ggrcrjvsvb794[address] [place], [place] [address]Dr. Farhat Leal Hematocrit (Bld) [Volume fraction] 34.8 % Critically low 42.0-54.0 [facility] Comment on above: Performed By: #### C BC ####[facility] Dwczysazmd65[address] [place], [place] [address]Dr. Farhat Leal Hemoglobin (Bld) [Mass/Vol] 11.7 g/dL Critically low 14.0-18.0 [facility] Comment on above: Performed By: #### C BC ####[facility] Psrffqqsgo3726[address] [place], [place] [address]Dr. Farhat Leal IG # 0.02 10e3/ul Normal 0.00-0.03 [facility] Comment on above: Performed By: #### C BC ####[facility] Ocfjcgvqnh9336[address] [place], [place] [address]Dr. Farhat Leal IG % 0.3 % Normal 0.0-0.5 [facility] Comment on above: Performed By: #### C BC ####[facility] [address]hfukelsz[address] [place] [address]Eh. Farhat Elvis LYMPH # 2.5 103/ul Normal 1.2-3.8 [facility] Comment on above: Performed By: #### C BC ####[facility] Pqgqguhmlg9289 [place] [phone]. Madelynlorri Leal Lymphocytes/100 WBC (Bld) 36.8 % Normal 20.5-60.0 [facility] Comment on above: Performed By: #### C BC ####[facility] Jvrnkcyfft4979 [place] [address]Dr. Madelynlorri Leal MANUAL DIFF REQ NO Normal [facility] Comment on above: Performed By: #### C BC ####[facility] Djeagiskrm4749 [place] [address]Dr. Farhat Elvis MCH (RBC) [Entitic mass] 30.9 pg Normal 25.9-34.0 [facility] Comment on above: Performed By: #### C BC ####[facility] Upxzsmivbt77[address] [place], [place] [address]Dr. Farhat Elvis MCHC (RBC) [Mass/Vol] 33.6 g/dL Normal 29.9-35.2 [facility] Comment on above: Performed By: #### C BC ####[facility] Eaeaccritv089[address] [place], [place] [address]Dr. Farhat Leal MCV (RBC) [Entitic vol] 91.8 fL Normal 80.0-94.0 [facility] Comment on above: Performed By: #### C BC ####[facility] Qgcgrxrnxq3990 [place] [address]Dr. Farhat Leal MONO # 0.8 103/ul Normal 0.3-0.8 [facility] Comment on above: Performed By: #### C BC ####[facility] Cmeeglsekw65[address] [place], [place] [address]Dr. Farhat Leal Monocytes/100 WBC (Bld) 11.9 % Normal 1.7-12.0 [facility] Comment on above: Performed By: #### C BC ####[facility] Letjhatzyn[address] [place], [place] [address]Dr. Farhat Leal NEUT # 3.1 103/ul Normal 1.4-6.5 [facility] Comment on above: Performed By: #### C BC ####[facility] Rjyyxbphij[address] [place] [address]Dr. Farhat Leal Neutrophils/100 WBC (Bld) 45.2 % Normal 43.0-75.0 [facility] Comment on above: Performed By: #### C BC ####[facility] Fdpeyiohnr6[address] [place] [address]Dr. Farhat Leal Platelet mean volume (Bld) [Entitic vol] 10.5 fL Normal 9.5-13.5 [facility] Comment on above: Performed By: #### C BC ####[facility] Heatxiuxzw2828 [place] [address]Dr. Farhat Leal PLT 175 103/ul Normal 150-450 [facility] Comment on above: Performed By: #### C BC ####[facility] Opnelzpfwl[address] [place], [place] [address]Dr. Farhat Leal RBC 3.79 106/ul Critically low 4.70-6.10 [facility] Comment on above: Performed By: #### C BC ####[facility] Ftwmxkqsor5575 [place] [address]Dr. Farhat Leal WBC 6.8 103/ul Normal 4.0-11.0 [facility] Comment on above: Performed By: #### C BC ####[facility] Mtyhitcrtq5597 [place] [address]Dr. Farhat Leal MAGNESIUMon 06-12-2022 Magnesium [Mass/Vol] 1.6 mg/dL Critically low 1.8-2.4 [facility] Comment on above: Performed By: #### C MP, MG, PHOS ####[facility] Aiilyrccww5350 [place] [address]Dr. Farhat Leal PHOSPHORUSon 06-12-2022 Phosphate [Mass/Vol] 3.8 mg/dL Normal 2.6-4.7 [facility] Comment on above: Performed By: #### C MP, MG, PHOS ####[facility] Pmygpbuglk9996 [place] [address]Dr. Farhat Leal PROF 14(COMP METB)on 023 Albumin [Mass/Vol] 2.6 g/dL Critically low 3.4-5.0 [facility] Comment on above: Performed By: #### C MP, MG, PHOS ####[facility] Arpffaibnt7[address] [place] [address]Dr. Farhat Leal Albumin/Globulin [Mass ratio] 0.8 {ratio} Normal [facility] Comment on above: Performed By: #### C MP, MG, PHOS ####[facility] Sqozgiqyoj[address] [place], [place] [address]Dr. Farhat Leal ALP [Catalytic activity/Vol] 64 U/L Normal 46-116 [facility] Comment on above: Performed By: #### C MP, MG, PHOS ####[facility] Jtwafhzyqc14[address] [place], [place] [address]Dr. Farhat Leal ALT [Catalytic activity/Vol] 18 U/L Normal 16-63 [facility] Comment on above: Performed By: #### C MP, MG, PHOS ####[facility] H[address]qgfdpdxc7[address] [place], [place] [address]Dr. Farhat Leal Anion gap [Moles/Vol] 12.9 mmol/L Normal [facility] Comment on above: Performed By: #### C MP, MG, PHOS ####[facility] Zjpmkibzpx34[address] [place], [place] [address]Dr. Farhat Leal AST [Catalytic activity/Vol] 18 U/L Normal 15-37 [facility] Comment on above: Performed By: #### C MP, MG, PHOS ####[facility] Hhoheiktml52[address] [place], [place] [address]Dr. Farhat Leal Bilirubin [Mass/Vol] 0.4 mg/dL Normal 0.2-1.0 [facility] Comment on above: Performed By: #### C MP, MG, PHOS ####[facility] Ihmltcgtya7[address] [place], [place] [address]Dr. Farhat Leal Calcium [Mass/Vol] 8.7 mg/dL Normal 8.5-10.1 [facility] Comment on above: Performed By: #### C MP, MG, PHOS ####[facility] Gchvwgzyzr5373 [place] [address]Dr. Farhat Leal Chloride [Moles/Vol] 105 mmol/L Normal 98-107 [facility] Comment on above: Performed By: #### C MP, MG, PHOS ####[facility] Vzgnkqnoca6852 [place] [address]Dr. Farhat Leal CO2 [Moles/Vol] 27.9 mmol/L Normal 21.0-32.0 [facility] Comment on above: Performed By: #### C MP, MG, PHOS ####[facility] Uvbolxllht66[address] [place], [place] [address]Dr. Farhat Leal Creatinine [Mass/Vol] 1.53 mg/dL Critically high 0.70-1.30 [facility] Comment on above: Performed By: #### C MP, MG, PHOS ####[facility] Fnoykkosxy13[address] [place], [place] [address]Dr. Farhat Leal EGFR-AF MALDIVIAN 54 mL/min/1.73m2 Critically low >=60 [facility] Comment on above: Performed By: #### C MP, MG, PHOS ####[facility] Znqrdsaqsr5[address] [place], [place] [address]Dr. Farhat Leal EGFR-NON AF MALDIVIAN 44 mL/min/1.73m2 Critically low >=60 [facility] Comment on above: Performed By: #### C MP, MG, PHOS ####[facility] Rcrhfajhwt7281 [place] [address]Dr. Farhat eLal Globulin (S) [Mass/Vol] 3.4 g/dL Normal [facility] Comment on above: Performed By: #### C MP, MG, PHOS ####[facility] Ggkvzihjly8352 [place] [address]Dr. Farhat Leal Glucose [Mass/Vol] 179 mg/dL Critically high 74-106 [facility] Comment on above: Performed By: #### C MP, MG, PHOS ####[facility] Iuiwdnwbwu5423 [place] [address]Dr. Farhat Leal Potassium [Moles/Vol] 3.8 mmol/L Normal 3.5-5.1 [facility] Comment on above: Performed By: #### C MP, MG, PHOS ####[facility] Szclkjdkvu9215 [place] [address]Dr. Farhat Leal Protein [Mass/Vol] 6.0 g/dL Critically low 6.4-8.2 [facility] Comment on above: Performed By: #### C MP, MG, PHOS ####[facility] Brstpomzcu[address] [place], [place] [address]Dr. Farhat Leal Sodium [Moles/Vol] 142 mmol/L Normal 136-145 [facility] Comment on above: Performed By: #### C MP, MG, PHOS ####[facility] Oumfehvxhb2523[address] [place], [place] [address]Dr. Farhat Leal Urea nitrogen [Mass/Vol] 56.0 mg/dL Critically high 7.0-18.0 [facility] Comment on above: Performed By: #### C MP, MG, PHOS ####[facility] Umfaxprkjz363[address] [place], [place] [address]Dr. Farhat Leal Urea nitrogen/Creatinine [Mass ratio] 36.6 mg/mg Normal [facility] Comment on above: Performed By: #### C MP, MG, PHOS ####[facility] Klrjwxvono[address] [place], [place] [address]Dr. Farhat Leal FK506 (TACROLIMUS) WHOLE BLO ODon 06-08-2022 Tacrolimus (FK506), Blood 13.2 ng/mL Normal 2.0-20.0 [facility] Comment on above: Result Comment: Trou gh (immediately following transplant) 15.0 . Trough (steady state, 2 weeks or more after transplant): 3.0 - 8.0 . Performed by LC-MS/MS technology. Performed By: #### F K506T ####[facility] K[address]tlfybqn76[address] [place], [place] [address]Dr. Farhat Leal CBC AUTO DIFFon 06-05-2022 BASO # 0.1 103/ul Normal 0.0-0.1 [facility] Comment on above: Performed By: #### C BC ####[facility] Vcmrreiujx4477 [place] [address]Dr. Farhat Leal Basophils/100 WBC (Bld) 0.8 % Normal 0.2-2.0 [facility] Comment on above: Performed By: #### C BC ####[facility] Prrzkfxipt4856 [place] [address]Dr. Farhat Leal EO # 0.3 103/ul Normal 0.0-0.7 [facility] Comment on above: Performed By: #### C BC ####[facility] Dgponwuikp3418 [place] [address]Dr. Farhat Leal Eosinophils/100 WBC (Bld) 4.7 % Normal 0.9-7.0 [facility] Comment on above: Performed By: #### C BC ####[facility] Gxbqyejmxt3063 [place] [address]Dr. Farhat Leal Erythrocyte distribution width (RBC) [Ratio] 15.1 % Critically high 11.0-15.0 [facility] Comment on above: Performed By: #### C BC ####[facility] Hxuvpjkglk8813 [place] [address]Dr. Farhat Leal Hematocrit (Bld) [Volume fraction] 35.5 % Critically low 42.0-54.0 [facility] Comment on above: Performed By: #### C BC ####[facility] Fvuhfekncv5131 [place] [address]Dr. Farhat Leal Hemoglobin (Bld) [Mass/Vol] 11.7 g/dL Critically low 14.0-18.0 [facility] Comment on above: Performed By: #### C BC ####[facility] Bsxkvkabuj2950 [place] [address]Dr. Farhat Elvis IG # 0.01 10e3/ul Normal 0.00-0.03 [facility] Comment on above: Performed By: #### C BC ####[facility] Hjdfkoiwwj8902 [place] [phone]. Farhat Leal IG % 0.2 % Normal 0.0-0.5 [facility] Comment on above: Performed By: #### C BC ####[facility] Enuqdyodqm8626 [place] [phone]. Farhat Leal LYMPH # 2.1 103/ul Normal 1.2-3.8 [facility] Comment on above: Performed By: #### C BC ####[facility] Wzrmmdvwyd4025 [place] [phone]. Farhat Elvis Lymphocytes/100 WBC (Bld) 34.5 % Normal 20.5-60.0 [facility] Comment on above: Performed By: #### C BC ####[facility] Nhonmgxgfk3686 [place] [phone]. Farhat Elvis MANUAL DIFF REQ NO Normal [facility] Comment on above: Performed By: #### C BC ####[facility] Lllowucrrv7819 [place] [phone]. Farhat Leal MCH (RBC) [Entitic mass] 30.6 pg Normal 25.9-34.0 [facility] Comment on above: Performed By: #### C BC ####[facility] Mfganopmgd4886 [place] [phone]. Farhat Leal MCHC (RBC) [Mass/Vol] 33.0 g/dL Normal 29.9-35.2 [facility] Comment on above: Performed By: #### C BC ####[facility] Hxmhtsjast7819 [place] [phone]. Farhat Leal MCV (RBC) [Entitic vol] 92.9 fL Normal 80.0-94.0 [facility] Comment on above: Performed By: #### C BC ####[facility] Dgfhlhqxfo7995 [place] [phone]. Farhat Elvis MONO # 0.7 103/ul Normal 0.3-0.8 [facility] Comment on above: Performed By: #### C BC ####[facility] Aydbhmtxwy5763 [place] [phone]. Farhat Leal Monocytes/100 WBC (Bld) 11.4 % Normal 1.7-12.0 [facility] Comment on above: Performed By: #### C BC ####[facility] Lvfbnbztem6460 [place] [phone]. Farhat Leal NEUT # 2.9 103/ul Normal 1.4-6.5 [facility] Comment on above: Performed By: #### C BC ####[facility] Bouakxgait0701 [place] [phone]. Farhat Leal Neutrophils/100 WBC (Bld) 48.4 % Normal 43.0-75.0 [facility] Comment on above: Performed By: #### C BC ####[facility] Agtclrfoid0675 [place] [phone]. Farhat Leal Platelet mean volume (Bld) [Entitic vol] 10.7 fL Normal 9.5-13.5 [facility] Comment on above: Performed By: #### C BC ####[facility] Bpcfwvxnmq4472 [place] [phone]. Farhat Leal PLT 185 103/ul Normal 150-450 [facility] Comment on above: Performed By: #### C BC ####[facility] Qhlophugmx4616 [place] [phone]. Farhat Leal RBC 3.82 106/ul Critically low 4.70-6.10 [facility] Comment on above: Performed By: #### C BC ####[facility] Ctfbwstrab4197 [place] [phone]. Farhat Leal WBC 6.0 103/ul Normal 4.0-11.0 [facility] Comment on above: Performed By: #### C BC ####[facility] Clvvmcozqh7215 [place] [phone]. Farhat Leal MAGNESIUMon 06-05-2022 Magnesium [Mass/Vol] 1.9 mg/dL Normal 1.8-2.4 [facility] Comment on above: Performed By: #### P HOS, MG ####[facility] Czcfwwufmj7904 [place] [phone]. Madelynlorri Leal PHOSPHORUSon 06-05-2022 Phosphate [Mass/Vol] 4.4 mg/dL Normal 2.6-4.7 [facility] Comment on above: Performed By: #### P HOS, MG ####[facility] Agxhvqodqh8844 [place] [address]Dr. Farhat Leal PROTIMEon 06-05-2022 INR Coag (PPP) [Relative time] 2.16 {INR} Normal [facility] Comment on above: Performed By: #### P T ####[facility] Cjvfxgniku6917 [place] [address]Dr. Farhat Leal INR GUIDELINES SEE BELOW Normal [facility] Comment on above: Result Comment: MALINA RED INR: 2.0 - 3.0 CONDITIONS NOT LISTED BELOW 2.5 - 3.5 FOR PROSTHETIC HEART VALVE REPLACEMENT 2.5 - 3.5 RECURRENT THROMBOSIS Performed By: #### P T ####[facility] Tmnyuhgyvo8[address] [place], [place] [address]Dr. Farhat Leal PT Coag (PPP) [Time] 21.9 s Critically high 9.0-11.6 [facility] Comment on above: Performed By: #### P T ####[facility] Uafoghimfh654[address] [place], [place] [address]Dr. Farhat Leal FK506 (TACROLIMUS) WHOLE BLO ODon 06-01-2022 Tacrolimus (FK506), Blood 26.4 ng/mL Invalid Interpretation Code 2.0-20.0 [facility] Comment on above: Result Comment: Trou gh (immediately following transplant) 15.0 . Trough (steady state, 2 weeks or more after transplant): 3.0 - 8.0 . Performed by LC-MS/MS technology.Patient drug level exceeds published reference range. Evaluateclinically for signs of potential toxicity. Performed By: #### F K506T ####[facility] Aumwnlrsee0358 [place] [address]DrSkylar Leal CBC AUTO DIFFon 05-29-2022 BASO # 0.0 103/ul Normal 0.0-0.1 [facility] Comment on above: Performed By: #### C BC ####[facility] Qrdubnqdku7802 [place] [phone]. Farhat Leal Basophils/100 WBC (Bld) 0.6 % Normal 0.2-2.0 [facility] Comment on above: Performed By: #### C BC ####[facility] Dfoyegzqvi30[address] [place], [place] [address]Dr. Farhat Leal EO # 0.3 103/ul Normal 0.0-0.7 [facility] Comment on above: Performed By: #### C BC ####[facility] Rwssscepyv10[address] [place], [place] [address]Dr. Farhat Leal Eosinophils/100 WBC (Bld) 4.7 % Normal 0.9-7.0 [facility] Comment on above: Performed By: #### C BC ####[facility] Nsultgqexu4[address] [place], [place] [address]Dr. Farhat Leal Erythrocyte distribution width (RBC) [Ratio] 15.3 % Critically high 11.0-15.0 [facility] Comment on above: Performed By: #### C BC ####[facility] Bzhdwujnee7[address] [place], [place] [address]Dr. Farhat Leal Hematocrit (Bld) [Volume fraction] 36.6 % Critically low 42.0-54.0 [facility] Comment on above: Performed By: #### C BC ####[facility] Xqkrljbohr8325[address] [place], [place] [address]Dr. Farhat Leal Hemoglobin (Bld) [Mass/Vol] 12.3 g/dL Critically low 14.0-18.0 [facility] Comment on above: Performed By: #### C BC ####[facility] Uxqewxqvsc6[address] [place], [place] [address]Dr. Farhat Leal IG # 0.02 10e3/ul Normal 0.00-0.03 [facility] Comment on above: Performed By: #### C BC ####[facility] Isjdxzzanm[address] [place], [place] [id number]. Farhat Leal IG % 0.3 % Normal 0.0-0.5 [facility] Comment on above: Performed By: #### C BC ####[facility] Mlxoczsrfe1790 [place] [phone]. Farhat Elvis LYMPH # 2.8 103/ul Normal 1.2-3.8 [facility] Comment on above: Performed By: #### C BC ####[facility] Mxkjcaymtn5741 [place] [phone]. Farhat Leal Lymphocytes/100 WBC (Bld) 44.4 % Normal 20.5-60.0 [facility] Comment on above: Performed By: #### C BC ####[facility] Tfjzayjhlh9536 [place] [address]Dr. Farhat Leal MANUAL DIFF REQ NO Normal [facility] Comment on above: Performed By: #### C BC ####[facility] Sjwnntpsix0057 [place] [phone]. Farhat Leal MCH (RBC) [Entitic mass] 30.4 pg Normal 25.9-34.0 [facility] Comment on above: Performed By: #### C BC ####[facility] Lsegqqbwyz7202 [place] [phone]. Madelynlorri Leal MCHC (RBC) [Mass/Vol] 33.6 g/dL Normal 29.9-35.2 [facility] Comment on above: Performed By: #### C BC ####[facility] Lojntpuydp2353 [place] [phone]. Farhat Leal MCV (RBC) [Entitic vol] 90.4 fL Normal 80.0-94.0 [facility] Comment on above: Performed By: #### C BC ####[facility] Tzhndedacy3595 [place] [phone]. Farhat Leal MONO # 0.7 103/ul Normal 0.3-0.8 [facility] Comment on above: Performed By: #### C BC ####[facility] Uwppusbsos1356 [place] [phone]. Farhat Leal Monocytes/100 WBC (Bld) 10.7 % Normal 1.7-12.0 [facility] Comment on above: Performed By: #### C BC ####[facility] Upzqntgfhd5424 [place] [phone]. Farhat Leal NEUT # 2.5 103/ul Normal 1.4-6.5 [facility] Comment on above: Performed By: #### C BC ####[facility] Afujuphykz5898 [place] [phone]. Farhat Leal Neutrophils/100 WBC (Bld) 39.3 % Critically low 43.0-75.0 [facility] Comment on above: Performed By: #### C BC ####[facility] Fqmizlxdpj2476 [place] [phone]. Farhat Leal Platelet mean volume (Bld) [Entitic vol] 10.5 fL Normal 9.5-13.5 [facility] Comment on above: Performed By: #### C BC ####[facility] Ervzerszdp2881 [place] [phone]. Farhat Leal PLT 190 103/ul Normal 150-450 [facility] Comment on above: Performed By: #### C BC ####[facility] Qgefrimgyx5245 [place] [phone]. Farhat Leal RBC 4.05 106/ul Critically low 4.70-6.10 [facility] Comment on above: Performed By: #### C BC ####[facility] Adwljklmci9779 [place] [phone]. Farhat Leal WBC 6.4 103/ul Normal 4.0-11.0 [facility] Comment on above: Performed By: #### C BC ####[facility] Yomzyhlgib0176 [place] [phone] Leal PROF 14(COMP METB)on 023 Albumin [Mass/Vol] 2.5 g/dL Critically low 3.4-5.0 [facility] Comment on above: Performed By: #### C MP ####[facility] Hfthdcdhyt3256 [place] [phone] Leal Albumin/Globulin [Mass ratio] 0.8 {ratio} Normal [facility] Comment on above: Performed By: #### C MP ####[facility] Detoatyzge7391 [place] [address]Dr. Farhat Leal ALP [Catalytic activity/Vol] 61 U/L Normal 46-116 [facility] Comment on above: Performed By: #### C MP ####[facility] Qhtzkovbvh3921 [place] [address]Dr. Farhat Elvis ALT [Catalytic activity/Vol] 16 U/L Normal 16-63 [facility] Comment on above: Performed By: #### C MP ####[facility] Qjeyyapgco5117 [place] [address]Dr. Farhat Elvis Anion gap [Moles/Vol] 12.3 mmol/L Normal [facility] Comment on above: Performed By: #### C MP ####[facility] I[address]jjyvkl74[address] [place], [place] [address]Dr. Farhat Elvis AST [Catalytic activity/Vol] 18 U/L Normal 15-37 [facility] Comment on above: Performed By: #### C MP ####[facility] Ygsgpcyavb224[address] [place], [place] [address]Dr. Farhat Elvis Bilirubin [Mass/Vol] 0.5 mg/dL Normal 0.2-1.0 [facility] Comment on above: Performed By: #### C MP ####[facility] Ntogpawbia40[address] [place], [place] [address]Dr. Farhat Elvis Calcium [Mass/Vol] 8.6 mg/dL Normal 8.5-10.1 [facility] Comment on above: Performed By: #### C MP ####[facility] Zvsutcpyik5661 [place] [address]Dr. Farhat Leal Chloride [Moles/Vol] 105 mmol/L Normal 98-107 [facility] Comment on above: Performed By: #### C MP ####[facility] Ouffdwpkzl6532 [place] [address]Dr. Farhat Leal CO2 [Moles/Vol] 28.6 mmol/L Normal 21.0-32.0 [facility] Comment on above: Performed By: #### C MP ####[facility] Fynmmjheqr5451 [place] [phone]. Farhat Leal Creatinine [Mass/Vol] 1.47 mg/dL Critically high 0.70-1.30 [facility] Comment on above: Performed By: #### C MP ####[facility] Vbysrnjcmb0439 [place] [phone]. Farhat Leal EGFR-AF MALDIVIAN 56 mL/min/1.73m2 Critically low >=60 [facility] Comment on above: Performed By: #### C MP ####[facility] Lwiwmpmnin4453 [place] [phone]. Farhat Elvis EGFR-NON AF MALDIVIAN 46 mL/min/1.73m2 Critically low >=60 [facility] Comment on above: Performed By: #### C MP ####[facility] Malkoidvrp9982 [place] [address]Dr. Farhat Elvis Globulin (S) [Mass/Vol] 3.3 g/dL Normal [facility] Comment on above: Performed By: #### C MP ####[facility] Zhheitwlma5487 [place] [address]Dr. Farhat Leal Glucose [Mass/Vol] 164 mg/dL Critically high 74-106 [facility] Comment on above: Performed By: #### C MP ####[facility] Btnmqzwwsx6899 [place] [address]Dr. Farhat Elvis Potassium [Moles/Vol] 3.9 mmol/L Normal 3.5-5.1 [facility] Comment on above: Performed By: #### C MP ####[facility] Beqkhupwsh5539 [place] [address]Dr. Farhat Leal Protein [Mass/Vol] 5.8 g/dL Critically low 6.4-8.2 [facility] Comment on above: Performed By: #### C MP ####[facility] Wubvnpufpp9555 [place] [address]Dr. Farhat Elvis Sodium [Moles/Vol] 142 mmol/L Normal 136-145 [facility] Comment on above: Performed By: #### C MP ####[facility] Qtegybxioc1680 [place] [address]Dr. Farhat Leal Urea nitrogen [Mass/Vol] 53.0 mg/dL Critically high 7.0-18.0 [facility] Comment on above: Performed By: #### C MP ####[facility] Eaaiwwulde24[address] [place], [place] [address]Dr. Farhat Leal Urea nitrogen/Creatinine [Mass ratio] 36.1 mg/mg Normal [facility] Comment on above: Performed By: #### C MP ####[facility] Fimlxwkslo4823[address] [place], [place] [address]Dr. Farhat Leal PROTIMEon 05-29-2022 INR Coag (PPP) [Relative time] 2.41 {INR} Normal [facility] Comment on above: Performed By: #### P T ####[facility] Clcahruxme6497[address] [place], [place] [address]Dr. Farhat Leal INR GUIDELINES SEE BELOW Normal [facility] Comment on above: Result Comment: MALINA RED INR: 2.0 - 3.0 CONDITIONS NOT LISTED BELOW 2.5 - 3.5 FOR PROSTHETIC HEART VALVE REPLACEMENT 2.5 - 3.5 RECURRENT THROMBOSIS Performed By: #### P T ####[facility] Eyrihmpdxn05[address] [place], [place] [address]Dr. Farhat Leal PT Coag (PPP) [Time] 24.3 s Critically high 9.0-11.6 [facility] Comment on above: Performed By: #### P T ####[facility] Bwlfnrxrxg9007[address] [place], [place] [address]Dr. Farhat Leal FK506 (TACROLIMUS) WHOLE BLO ODon 05-25-2022 Tacrolimus (FK506), Blood 5.1 ng/mL Normal 2.0-20.0 [facility] Comment on above: Result Comment: Trou gh (immediately following transplant) 15.0 . Trough (steady state, 2 weeks or more after transplant): 3.0 - 8.0 . Performed by LC-MS/MS technology. Performed By: #### F K506T ####[facility] Orkgwydlmr7777 [place] [address]Dr. Farhat Leal CBC AUTO DIFFon 05-22-2022 BASO # 0.0 103/ul Normal 0.0-0.1 [facility] Comment on above: Performed By: #### C BC ####[facility] Bfijzykush8[address] [place], [place] [address]Dr. Farhat Leal Basophils/100 WBC (Bld) 0.5 % Normal 0.2-2.0 [facility] Comment on above: Performed By: #### C BC ####[facility] Xzeddzrpum5[address] [place], [place] [address]Dr. Farhat Leal EO # 0.2 103/ul Normal 0.0-0.7 [facility] Comment on above: Performed By: #### C BC ####[facility] Ozyutvyfvx197[address] [place], [place] [address]Dr. Madelynlorri Leal Eosinophils/100 WBC (Bld) 4.0 % Normal 0.9-7.0 [facility] Comment on above: Performed By: #### C BC ####[facility] Zjrrpnltsy38[address] [place], [place] [address]Dr. Farhat Leal Erythrocyte distribution width (RBC) [Ratio] 15.5 % Critically high 11.0-15.0 [facility] Comment on above: Performed By: #### C BC ####[facility] Oilcwwboph1974[address] [place], [place] [address]Dr. Farhat Leal Hematocrit (Bld) [Volume fraction] 34.1 % Critically low 42.0-54.0 [facility] Comment on above: Performed By: #### C BC ####[facility] Oxhavylabl04[address] [place], [place] [address]Dr. Farhat Leal Hemoglobin (Bld) [Mass/Vol] 11.3 g/dL Critically low 14.0-18.0 [facility] Comment on above: Performed By: #### C BC ####[facility] Uuajzxlggy[address] [place], [place] [address]Dr. Farhat Leal IG # 0.03 10e3/ul Normal 0.00-0.03 [facility] Comment on above: Performed By: #### C BC ####[facility] Gudqcaedxc1800 [place] [phone]. Farhat Leal IG % 0.5 % Normal 0.0-0.5 [facility] Comment on above: Performed By: #### C BC ####[facility] Uuulpxbbsw2585 [place] [phone]. Farhat Leal LYMPH # 2.1 103/ul Normal 1.2-3.8 [facility] Comment on above: Performed By: #### C BC ####[facility] Jraryispgc8795 [place] [phone]. Farhat Elvis Lymphocytes/100 WBC (Bld) 34.6 % Normal 20.5-60.0 [facility] Comment on above: Performed By: #### C BC ####[facility] Uqpgtzjmpg6385 [place] [phone]. Farhat Leal MANUAL DIFF REQ NO Normal [facility] Comment on above: Performed By: #### C BC ####[facility] Hpoicdrfuh[address] [place] [phone]. Farhat Leal MCH (RBC) [Entitic mass] 30.3 pg Normal 25.9-34.0 [facility] Comment on above: Performed By: #### C BC ####[facility] Dyrvafuygt4957 [place] [phone]. Farhat Leal MCHC (RBC) [Mass/Vol] 33.1 g/dL Normal 29.9-35.2 [facility] Comment on above: Performed By: #### C BC ####[facility] Efrjiojpad[address] [place], [place] [id number]. Farhat Leal MCV (RBC) [Entitic vol] 91.4 fL Normal 80.0-94.0 [facility] Comment on above: Performed By: #### C BC ####[facility] Twmghbhusq9151 [place] [phone]. Farhat Elvis MONO # 0.7 103/ul Normal 0.3-0.8 [facility] Comment on above: Performed By: #### C BC ####[facility] Wzzzwkboog5071 [place] [phone]. Farhat Leal Monocytes/100 WBC (Bld) 11.6 % Normal 1.7-12.0 [facility] Comment on above: Performed By: #### C BC ####[facility] Npzfilrpve7699 [place] [phone]. Farhat Leal NEUT # 2.9 103/ul Normal 1.4-6.5 [facility] Comment on above: Performed By: #### C BC ####[facility] Onhiqoufyd7588 [place] [phone]. Farhat Leal Neutrophils/100 WBC (Bld) 48.8 % Normal 43.0-75.0 [facility] Comment on above: Performed By: #### C BC ####[facility] Sppmnspija7585 [place] [phone]. Farhat Leal Platelet mean volume (Bld) [Entitic vol] 10.9 fL Normal 9.5-13.5 [facility] Comment on above: Performed By: #### C BC ####[facility] Rslegtrjod7584 [place] [phone]. Farhat Leal PLT 186 103/ul Normal 150-450 [facility] Comment on above: Performed By: #### C BC ####[facility] Ggwnrdkrnd5801 [place] [phone]. Farhat Leal RBC 3.73 106/ul Critically low 4.70-6.10 [facility] Comment on above: Performed By: #### C BC ####[facility] Sdmpyynmjm8195 [place] [phone]. Farhat Leal WBC 6.0 103/ul Normal 4.0-11.0 [facility] Comment on above: Performed By: #### C BC ####[facility] Wjikdrtcxk2489 [place] [phone]. Farhat Leal PROF 14(COMP METB)on 023 Albumin [Mass/Vol] 2.7 g/dL Critically low 3.4-5.0 [facility] Comment on above: Performed By: #### C MP ####[facility] Grekhipowh5491 [place] [phone]. Farhat Elvis Albumin/Globulin [Mass ratio] 0.8 {ratio} Normal [facility] Comment on above: Performed By: #### C MP ####[facility] Gzqyktiowc4590 [place] [phone]. Madelynlorri Elvis ALP [Catalytic activity/Vol] 60 U/L Normal 46-116 [facility] Comment on above: Performed By: #### C MP ####[facility] Cynbaurbrd19[address] [place], [place] [address]Dr. Farhat Elvis ALT [Catalytic activity/Vol] 17 U/L Normal 16-63 [facility] Comment on above: Performed By: #### C MP ####[facility] Krpabhtpqj77[address] [place], [place] [address]Dr. Farhat Leal Anion gap [Moles/Vol] 9.6 mmol/L Normal [facility] Comment on above: Performed By: #### C MP ####[facility] Flnexhvwzw6[address] [place], [place] [address]Dr. Farhat Elvis AST [Catalytic activity/Vol] 14 U/L Critically low 15-37 [facility] Comment on above: Performed By: #### C MP ####[facility] Dsddjdholc44[address] [place], [place] [address]Dr. Farhat Leal Bilirubin [Mass/Vol] 0.5 mg/dL Normal 0.2-1.0 [facility] Comment on above: Performed By: #### C MP ####[facility] Ucwfinjado08[address] [place], [place] [address]Dr. Farhat Leal Calcium [Mass/Vol] 8.4 mg/dL Critically low 8.5-10.1 [facility] Comment on above: Performed By: #### C MP ####[facility] Rmqmdcmlpb64[address] [place], [place] [address]Dr. Farhat Leal Chloride [Moles/Vol] 104 mmol/L Normal 98-107 [facility] Comment on above: Performed By: #### C MP ####[facility] Uxfamzyljm4[address] [place] [address]Dr. Farhat Leal CO2 [Moles/Vol] 27.2 mmol/L Normal 21.0-32.0 [facility] Comment on above: Performed By: #### C MP ####[facility] Fsauviouoj7563 [place] [address]Dr. Farhat Leal Creatinine [Mass/Vol] 1.24 mg/dL Normal 0.70-1.30 [facility] Comment on above: Performed By: #### C MP ####[facility] Rlklhsiodv4626 [place] [address]Dr. Farhat Leal EGFR-AF MALDIVIAN >60 Normal >=60 [facility] Comment on above: Performed By: #### C MP ####[facility] Cgmlxzxnbq5805 [place] [address]Dr. Farhat Elvis EGFR-NON AF MALDIVIAN 57 mL/min/1.73m2 Critically low >=60 [facility] Comment on above: Performed By: #### C MP ####[facility] Zjwgdxzksf9909 [place] [address]Dr. Farhat Leal Globulin (S) [Mass/Vol] 3.3 g/dL Normal [facility] Comment on above: Performed By: #### C MP ####[facility] Ahrjsqtaar3080 [place] [address]Dr. Farhat Elvis Glucose [Mass/Vol] 275 mg/dL Critically high 74-106 [facility] Comment on above: Performed By: #### C MP ####[facility] Argjhufimf5417 [place] [address]Dr. Farhat Elvis Potassium [Moles/Vol] 3.8 mmol/L Normal 3.5-5.1 [facility] Comment on above: Performed By: #### C MP ####[facility] Mgvbqpllom280[address] [place], [place] [address]Dr. Farhat Leal Protein [Mass/Vol] 6.0 g/dL Critically low 6.4-8.2 [facility] Comment on above: Performed By: #### C MP ####[facility] Qqcpnofywj2005 [place] [address]Dr. Farhat Leal Sodium [Moles/Vol] 137 mmol/L Normal 136-[address] [facility] Comment on above: Performed By: #### C MP ####[facility] Yoczelzsba8[address] [place], [place] [address]Dr. Farhat Leal Urea nitrogen [Mass/Vol] 54.0 mg/dL Critically high 7.0-18.0 [facility] Comment on above: Performed By: #### C MP ####[facility] Czrfxgyatd025[address] [place], [place] [address]Dr. Farhat Leal Urea nitrogen/Creatinine [Mass ratio] 43.5 mg/mg Normal [facility] Comment on above: Performed By: #### C MP ####[facility] Nmblwqqeqd5102[address] [place], [place] [address]Dr. Farhat Leal PROTIMEon 05-22-2022 INR Coag (PPP) [Relative time] 2.27 {INR} Normal [facility] Comment on above: Performed By: #### P T ####[facility] Vnazhyshfm6[address] [place], [place] [address]Dr. Farhat Leal INR GUIDELINES SEE BELOW Normal [facility] Comment on above: Result Comment: MALINA RED INR: 2.0 - 3.0 CONDITIONS NOT LISTED BELOW 2.5 - 3.5 FOR PROSTHETIC HEART VALVE REPLACEMENT 2.5 - 3.5 RECURRENT THROMBOSIS Performed By: #### P T ####[facility] Xovtvfnclg4213[address] [place], [place] [address]Dr. Farhat Leal PT Coag (PPP) [Time] 23.0 s Critically high 9.0-11.6 [facility] Comment on above: Performed By: #### P T ####[facility] Nthogiehri454[address] [place], [place] [address]Dr. Farhat Leal FK506 (TACROLIMUS) WHOLE BLO ODon 05-19-2022 Tacrolimus (FK506), Blood 7.8 ng/mL Normal 2.0-20.0 [facility] Comment on above: Result Comment: Trou gh (immediately following transplant) 15.0 . Trough (steady state, 2 weeks or more after transplant): 3.0 - 8.0 . Performed by LC-MS/MS technology. Performed By: #### F K506T ####[facility] Tlpgksamry1874 [place] [address]Dr. Farhat Leal CBC AUTO DIFFon 05-15-2022 BASO # 0.0 103/ul Normal 0.0-0.1 [facility] Comment on above: Performed By: #### C BC ####[facility] Vvqslqcivu3136 [place] [address]Dr. Farhat Elvis Basophils/100 WBC (Bld) 0.4 % Normal 0.2-2.0 [facility] Comment on above: Performed By: #### C BC ####[facility] Siguxavdep984[address] [place], [place] [address]Dr. Farhat Leal EO # 0.2 103/ul Normal 0.0-0.7 [facility] Comment on above: Performed By: #### C BC ####[facility] Pdnbsudqnh36[address] [place], [place] [address]Dr. Farhat Elvis Eosinophils/100 WBC (Bld) 3.0 % Normal 0.9-7.0 [facility] Comment on above: Performed By: #### C BC ####[facility] Fxycffqthq1142[address] [place], [place] [address]Dr. Farhat Leal Erythrocyte distribution width (RBC) [Ratio] 15.7 % Critically high 11.0-15.0 [facility] Comment on above: Performed By: #### C BC ####[facility] Eikrebepun1455[address] [place], [place] [address]Dr. Farhat Leal Hematocrit (Bld) [Volume fraction] 36.8 % Critically low 42.0-54.0 [facility] Comment on above: Performed By: #### C BC ####[facility] Tgqucfxhbn6179[address] [place], [place] [address]Dr. Farhat Leal Hemoglobin (Bld) [Mass/Vol] 12.4 g/dL Critically low 14.0-18.0 [facility] Comment on above: Performed By: #### C BC ####[facility] Lcmpzamahs8237[address] [place], [place] [address]DrSkylar Leal IG # 0.01 10e3/ul Normal 0.00-0.03 [facility] Comment on above: Performed By: #### C BC ####[facility] Hywagcgnlr3455 [place] [address]DrSkylar Leal IG % 0.1 % Normal 0.0-0.5 [facility] Comment on above: Performed By: #### C BC ####[facility] Cfbdbjvorc6987 [place] [address]DrSkylar Leal LYMPH # 2.4 103/ul Normal 1.2-3.8 [facility] Comment on above: Performed By: #### C BC ####[facility] Nmrzjzntne28[address] [place], [place] [address]DrSkylar Leal Lymphocytes/100 WBC (Bld) 35.6 % Normal 20.5-60.0 [facility] Comment on above: Performed By: #### C BC ####[facility] Hhnxwvceqe49[address] [place], [place] [address]DrSkylar Leal MANUAL DIFF REQ NO Normal [facility] Comment on above: Performed By: #### C BC ####[facility] Wvmrpcjylc6213[address] [place], [place] [address]DrSkylar Leal MCH (RBC) [Entitic mass] 30.1 pg Normal 25.9-34.0 [facility] Comment on above: Performed By: #### C BC ####[facility] Fjxbczlate[address] [place], [place] [address]DrSkylar Leal MCHC (RBC) [Mass/Vol] 33.7 g/dL Normal 29.9-35.2 [facility] Comment on above: Performed By: #### C BC ####[facility] Asnlfsbcap7521 [place] [address]DrSkylar Leal MCV (RBC) [Entitic vol] 89.3 fL Normal 80.0-94.0 [facility] Comment on above: Performed By: #### C BC ####[facility] Wlawqsdwur98[address] [place], [place] [address]DrSkylar Leal MONO # 0.7 103/ul Normal 0.3-0.8 [facility] Comment on above: Performed By: #### C BC ####[facility] Umdmuqsdsf4064 [place] [phone] Leal Monocytes/100 WBC (Bld) 10.8 % Normal 1.7-12.0 [facility] Comment on above: Performed By: #### C BC ####[facility] Eefkqhrijq7811 [place] [phone] Leal NEUT # 3.4 103/ul Normal 1.4-6.5 [facility] Comment on above: Performed By: #### C BC ####[facility] Qpqxwgujxf6552 [place] [address]DrSkylar Farhat Leal Neutrophils/100 WBC (Bld) 50.1 % Normal 43.0-75.0 [facility] Comment on above: Performed By: #### C BC ####[facility] Ylprjlwfap[address] [place], [place] [id number] Fahrat Leal Platelet mean volume (Bld) [Entitic vol] 10.2 fL Normal 9.5-13.5 [facility] Comment on above: Performed By: #### C BC ####[facility] Ekdwuogkdc[address] [place], [place] [address]Dr. Farhat Leal PLT 190 103/ul Normal 150-450 [facility] Comment on above: Performed By: #### C BC ####[facility] Olwurbcwhv6056 [place] [phone] Farhat Leal RBC 4.12 106/ul Critically low 4.70-6.10 [facility] Comment on above: Performed By: #### C BC ####[facility] Harmuoqglz7811 [place] [phone] Farhat Leal WBC 6.8 103/ul Normal 4.0-11.0 [facility] Comment on above: Performed By: #### C BC ####[facility] Xmvhyujwvf29[address] [place], [place] [address]DrSkylar Farhat Elvis PROF 14(COMP METB)on 023 Albumin [Mass/Vol] 2.8 g/dL Critically low 3.4-5.0 [facility] Comment on above: Performed By: #### C MP ####[facility] Bijhoqikvd5709 [place] [address]Dr. Farhat Leal Albumin/Globulin [Mass ratio] 0.9 {ratio} Normal [facility] Comment on above: Performed By: #### C MP ####[facility] Eclsyunxbh7578 [place] [address]Dr. Farhat Leal ALP [Catalytic activity/Vol] 66 U/L Normal 46-116 [facility] Comment on above: Performed By: #### C MP ####[facility] Mrqejdrfnk9279[address] [place], [place] [address]Dr. Farhat Leal ALT [Catalytic activity/Vol] 15 U/L Critically low 16-63 [facility] Comment on above: Performed By: #### C MP ####[facility] Xxxwusbris9085[address] [place], [place] [address]Dr. Farhat Leal Anion gap [Moles/Vol] 11.1 mmol/L Normal [facility] Comment on above: Performed By: #### C MP ####[facility] Kchpmxjcwd9165[address] [place], [place] [address]Dr. aFrhat Leal AST [Catalytic activity/Vol] 14 U/L Critically low 15-37 [facility] Comment on above: Performed By: #### C MP ####[facility] Wokptokeis8[address] [place], [place] [address]Dr. Farhat Leal Bilirubin [Mass/Vol] 0.8 mg/dL Normal 0.2-1.0 [facility] Comment on above: Performed By: #### C MP ####[facility] Cwbwbusrtv9[address] [place], [place] [address]Dr. Farhat Leal Calcium [Mass/Vol] 8.9 mg/dL Normal 8.5-10.1 [facility] Comment on above: Performed By: #### C MP ####[facility] Alguqxjajl6872[address] [place], [place] [address]Dr. Farhat Leal Chloride [Moles/Vol] 101 mmol/L Normal 98-107 [facility] Comment on above: Performed By: #### C MP ####[facility] Eiwknamhgi3234 [place] [address]Dr. Farhat Leal CO2 [Moles/Vol] 28.2 mmol/L Normal 21.0-32.0 [facility] Comment on above: Performed By: #### C MP ####[facility] Wztdilozwc0543 [place] [address]Dr. Farhat Elvis Creatinine [Mass/Vol] 1.23 mg/dL Normal 0.70-1.30 [facility] Comment on above: Performed By: #### C MP ####[facility] Kruketnghp3985 [place] [address]Dr. Farhat Elvis EGFR-AF MALDIVIAN >60 Normal >=60 [facility] Comment on above: Performed By: #### C MP ####[facility] Hznjmhqhvb9379 [place] [address]Dr. Madelynlorri Elvis EGFR-NON AF MALDIVIAN 57 mL/min/1.73m2 Critically low >=60 [facility] Comment on above: Performed By: #### C MP ####[facility] Pxrzfntgwe4819 [place] [address]Dr. Farhat Elvis Globulin (S) [Mass/Vol] 3.2 g/dL Normal [facility] Comment on above: Performed By: #### C MP ####[facility] Atzhgdclmz8103 [place] [address]Dr. Farhat Leal Glucose [Mass/Vol] 333 mg/dL Critically high 74-106 [facility] Comment on above: Performed By: #### C MP ####[facility] Ssqhjhkcjl8717 [place] [address]Dr. Madelynlorri Leal Potassium [Moles/Vol] 4.3 mmol/L Normal 3.5-5.1 [facility] Comment on above: Performed By: #### C MP ####[facility] Hseuegpeqo7807 [place] [address]Dr. Farhat Leal Protein [Mass/Vol] 6.0 g/dL Critically low 6.4-8.2 Th e [facility] Comment on above: Performed By: #### C MP ####[facility] Wgukbxulfs6040 [place] [address]Dr. Farhat Leal Sodium [Moles/Vol] 136 mmol/L Normal 136-145 [facility] Comment on above: Performed By: #### C MP ####[facility] Ovkiwwghyj076[address] [place], [place] [address]Dr. Farhat Leal Urea nitrogen [Mass/Vol] 58.0 mg/dL Critically high 7.0-18.0 [facility] Comment on above: Performed By: #### C MP ####[facility] Enywliyoqr8568[address] [place], [place] [address]Dr. Farhat Leal Urea nitrogen/Creatinine [Mass ratio] 47.2 mg/mg Normal [facility] Comment on above: Performed By: #### C MP ####[facility] Unvlnngrhj6465[address] [place], [place] [address]Dr. Farhat Leal PROTIMEon 05-13-2022 INR Coag (PPP) [Relative time] 3.51 {INR} Normal [facility] Comment on above: Performed By: #### P T ####[facility] Hfpxoagpin7013[address] [place], [place] [address]Dr. Farhat Leal INR GUIDELINES SEE BELOW Normal [facility] Comment on above: Result Comment: MALINA RED INR: 2.0 - 3.0 CONDITIONS NOT LISTED BELOW 2.5 - 3.5 FOR PROSTHETIC HEART VALVE REPLACEMENT 2.5 - 3.5 RECURRENT THROMBOSIS Performed By: #### P T ####[facility] Ulkwntzibx9696[address] [place], [place] [address]Dr. Farhat Leal PT Coag (PPP) [Time] 34.7 s Critically high 9.0-11.6 [facility] Comment on above: Performed By: #### P T ####[facility] Hqocslasep65[address] [place], [place] [address]Dr. Farhat Leal FK506 (TACROLIMUS) WHOLE BLO ODon 05-11-2022 Tacrolimus (FK506), Blood 14.4 ng/mL Normal 2.0-20.0 [facility] Comment on above: Result Comment: Trou gh (immediately following transplant) 15.0 . Trough (steady state, 2 weeks or more after transplant): 3.0 - 8.0 . Performed by LC-MS/MS technology. Performed By: #### F K506T ####[facility] Szirkrixtb07[address] [place], [place] [address]Dr. Farhat Leal CBC AUTO DIFFon 05-08-2022 BASO # 0.0 103/ul Normal 0.0-0.1 [facility] Comment on above: Performed By: #### C BC ####[facility] Rbyyjpfwqp8[address] [place], [place] [address]Dr. Farhat Leal Basophils/100 WBC (Bld) 0.5 % Normal 0.2-2.0 [facility] Comment on above: Performed By: #### C BC ####[facility] Rigusgmawd5638[address] [place], [place] [address]Dr. Farhat Leal EO # 0.2 103/ul Normal 0.0-0.7 [facility] Comment on above: Performed By: #### C BC ####[facility] Hfeyahmeoo49[address] [place], [place] [address]Dr. Farhat Leal Eosinophils/100 WBC (Bld) 2.9 % Normal 0.9-7.0 [facility] Comment on above: Performed By: #### C BC ####[facility] Fuaqkusotu7[address] [place], [place] [address]Dr. Farhat Leal Erythrocyte distribution width (RBC) [Ratio] 16.0 % Critically high 11.0-15.0 [facility] Comment on above: Performed By: #### C BC ####[facility] Tojtvvmabe1026[address] [place], [place] [address]Dr. Farhat Leal Hematocrit (Bld) [Volume fraction] 35.7 % Critically low 42.0-54.0 [facility] Comment on above: Performed By: #### C BC ####[facility] Dhujyudlil526[address] [place], [place] [address]Dr. Farhat Leal Hemoglobin (Bld) [Mass/Vol] 11.9 g/dL Critically low 14.0-18.0 [facility] Comment on above: Performed By: #### C BC ####[facility] Lkvwpykhyx9664 [place] [address]Dr. Farhat Leal IG # 0.03 10e3/ul Normal 0.00-0.03 [facility] Comment on above: Performed By: #### C BC ####[facility] Nysegildvr2173 [place] [address]Dr. Farhat Leal IG % 0.5 % Normal 0.0-0.5 [facility] Comment on above: Performed By: #### C BC ####[facility] Cvjymtsmvt7224 [place] [address]Dr. Farhat Leal LYMPH # 2.4 103/ul Normal 1.2-3.8 [facility] Comment on above: Performed By: #### C BC ####[facility] Kevkuvvfni9724 [place] [address]Dr. Farhat Leal Lymphocytes/100 WBC (Bld) 37.8 % Normal 20.5-60.0 [facility] Comment on above: Performed By: #### C BC ####[facility] Tbyawfvgyj1719 [place] [address]Dr. Farhat Leal MANUAL DIFF REQ NO Normal [facility] Comment on above: Performed By: #### C BC ####[facility] Ioqgcgebye5234 [place] [address]Dr. Farhat Leal MCH (RBC) [Entitic mass] 30.4 pg Normal 25.9-34.0 [facility] Comment on above: Performed By: #### C BC ####[facility] Vxwajmxaey8783 [place] [phone]. Farhat Leal MCHC (RBC) [Mass/Vol] 33.3 g/dL Normal 29.9-35.2 [facility] Comment on above: Performed By: #### C BC ####[facility] Bazfxowifs5141 [place] [address]Dr. Farhat Leal MCV (RBC) [Entitic vol] 91.1 fL Normal 80.0-94.0 [facility] Comment on above: Performed By: #### C BC ####[facility] Nidrqzdyng0811 [place] [phone]. Farhat Leal MONO # 0.7 103/ul Normal 0.3-0.8 [facility] Comment on above: Performed By: #### C BC ####[facility] Vghehhkhir4151 [place] [phone]. Farhat Leal Monocytes/100 WBC (Bld) 11.1 % Normal 1.7-12.0 [facility] Comment on above: Performed By: #### C BC ####[facility] Unnaxwpxxr2474 [place] [phone]. Farhat Leal NEUT # 2.9 103/ul Normal 1.4-6.5 [facility] Comment on above: Performed By: #### C BC ####[facility] Hxotwmfgye4512 [place] [phone]. Farhat Leal Neutrophils/100 WBC (Bld) 47.2 % Normal 43.0-75.0 [facility] Comment on above: Performed By: #### C BC ####[facility] Ynyuahrlcq0238 [place] [phone]. Farhat Leal Platelet mean volume (Bld) [Entitic vol] 11.0 fL Normal 9.5-13.5 [facility] Comment on above: Performed By: #### C BC ####[facility] Puhizxrywp4110 [place] [phone]. Farhat Leal PLT 191 103/ul Normal 150-450 [facility] Comment on above: Performed By: #### C BC ####[facility] Nxlbolmlzt2824 [place] [phone]. Farhat Leal RBC 3.92 106/ul Critically low 4.70-6.10 [facility] Comment on above: Performed By: #### C BC ####[facility] Qtbihbqnvp8464 [place] [phone]. Farhat Leal WBC 6.2 103/ul Normal 4.0-11.0 [facility] Comment on above: Performed By: #### C BC ####[facility] Bhleghvqej0883 [place] [address]Dr. Farhat Leal MAGNESIUMon 05-08-2022 Magnesium [Mass/Vol] 1.9 mg/dL Normal 1.8-2.4 [facility] Comment on above: Performed By: #### P HOS, MG ####[facility] Rwxswrsozc9584 [place] [address]Dr. Farhat Leal PHOSPHORUSon 05-08-2022 Phosphate [Mass/Vol] 4.5 mg/dL Normal 2.6-4.7 [facility] Comment on above: Performed By: #### P HOS, MG ####[facility] Xvkzobsiwm5507 [place] [address]Dr. Farhat Leal PROF 14(COMP METB)on 023 Albumin [Mass/Vol] 2.9 g/dL Critically low 3.4-5.0 [facility] Comment on above: Performed By: #### C MP ####[facility] Pzfjsrdeen065[address] [place], [place] [address]Dr. Farhat Leal Albumin/Globulin [Mass ratio] 0.9 {ratio} Normal [facility] Comment on above: Performed By: #### C MP ####[facility] Cqtoohzkif70[address] [place], [place] [address]Dr. Farhat Leal ALP [Catalytic activity/Vol] 70 U/L Normal 46-116 [facility] Comment on above: Performed By: #### C MP ####[facility] Fyrljhvtnc379[address] [place], [place] [address]Dr. Farhat Leal ALT [Catalytic activity/Vol] 13 U/L Critically low 16-63 [facility] Comment on above: Performed By: #### C MP ####[facility] Jabiahqzjd2289[address] [place], [place] [address]Dr. Farhat Leal Anion gap [Moles/Vol] 14.6 mmol/L Normal [facility] Comment on above: Performed By: #### C MP ####[facility] Hahxjuoafu280[address] [place], [place] [address]Dr. Farhat Leal AST [Catalytic activity/Vol] 17 U/L Normal 15-37 [facility] Comment on above: Performed By: #### C MP ####[facility] Muhwdjjwkt3565 [place] [address]Dr. Farhat Leal Bilirubin [Mass/Vol] 0.8 mg/dL Normal 0.2-1.0 [facility] Comment on above: Performed By: #### C MP ####[facility] Awsgzfcudc9767 [place] [address]Dr. Farhat Leal Calcium [Mass/Vol] 8.9 mg/dL Normal 8.5-10.1 [facility] Comment on above: Performed By: #### C MP ####[facility] Ragvstdjtn1152[address] [place], [place] [address]Dr. Farhat Leal Chloride [Moles/Vol] 102 mmol/L Normal 98-107 [facility] Comment on above: Performed By: #### C MP ####[facility] Rqlmksvgcd6574[address] [place], [place] [address]Dr. Farhat Elvis CO2 [Moles/Vol] 22.9 mmol/L Normal 21.0-32.0 [facility] Comment on above: Performed By: #### C MP ####[facility] Hpjsweoxim[address] [place], [place] [address]Dr. Farhat Elvis Creatinine [Mass/Vol] 1.20 mg/dL Normal 0.70-1.30 [facility] Comment on above: Performed By: #### C MP ####[facility] Logdgmtrme22[address] [place], [place] [address]Dr. Farhat Elvis EGFR-AF MALDIVIAN >60 Normal >=60 [facility] Comment on above: Performed By: #### C MP ####[facility] Nyjqwvilkw6004 [place] [phone]. Madelynlorri Elvis EGFR-NON AF MALDIVIAN 59 mL/min/1.73m2 Critically low >=60 [facility] Comment on above: Performed By: #### C MP ####[facility] Epinrbpwaf5[address] [place] [phone]. Farhat Leal Globulin (S) [Mass/Vol] 3.1 g/dL Normal [facility] Comment on above: Performed By: #### C MP ####[facility] Fveixiwtug2008 [place] [phone]. Farhat Leal Glucose [Mass/Vol] 447 mg/dL Critically high 74-106 T [facility] Comment on above: Performed By: #### C MP ####[facility] Xkcwwmwtho5155 [place] [phone]. Farhat Leal Potassium [Moles/Vol] 4.5 mmol/L Normal 3.5-5.1 [facility] Comment on above: Performed By: #### C MP ####[facility] Udnfklmgmz9[address] [place] [address]Dr. Farhat Leal Protein [Mass/Vol] 6.0 g/dL Critically low 6.4-8.2 Th [facility] Comment on above: Performed By: #### C MP ####[facility] Durtjfmyit4[address] [place], [place] [address]Dr. Farhat Leal Sodium [Moles/Vol] 135 mmol/L Critically low 136-145 Th [facility] Comment on above: Performed By: #### C MP ####[facility] Xxtejbgzja6[address] [place], [place] [address]Dr. Farhat Leal Urea nitrogen [Mass/Vol] 52.0 mg/dL Critically high 7.0-18.0 [facility] Comment on above: Performed By: #### C MP ####[facility] Dhujdawiqh[address] [place], [place] [address]Dr. Farhat Leal Urea nitrogen/Creatinine [Mass ratio] 43.3 mg/mg Normal [facility] Comment on above: Performed By: #### C MP ####[facility] Kbwtxfpemp2539 [place] [phone]. Farhat Leal PROTIMEon 05-06-2022 INR Coag (PPP) [Relative time] 2.25 {INR} Normal [facility] Comment on above: Performed By: #### P T ####[facility] Onfczwmmqc8122[address] [place], [place] [address]Dr. Farhat Leal INR GUIDELINES SEE BELOW Normal [facility] Comment on above: Result Comment: MALINA RED INR: 2.0 - 3.0 CONDITIONS NOT LISTED BELOW 2.5 - 3.5 FOR PROSTHETIC HEART VALVE REPLACEMENT 2.5 - 3.5 RECURRENT THROMBOSIS Performed By: #### P T ####[facility] Krbywofwqr1332[address] [place], [place] [address]Dr. Farhat Leal PT Coag (PPP) [Time] 22.8 s Critically high 9.0-11.6 [facility] Comment on above: Performed By: #### P T ####[facility] Mmdqkmnrou066[address] [place], [place] [address]Dr. Farhat Leal FK506 (TACROLIMUS) WHOLE BLO ODon 05-04-2022 Tacrolimus (FK506), Blood 10.4 ng/mL Normal 2.0-20.0 [facility] Comment on above: Result Comment: Trou gh (immediately following transplant) 15.0 . Trough (steady state, 2 weeks or more after transplant): 3.0 - 8.0 . Performed by LC-MS/MS technology. Performed By: #### F K506T ####[facility] Nbkursenyd9594[address] [place], [place] [address]Dr. Farhat Leal CBC AUTO DIFFon 05-01-2022 BASO # 0.1 103/ul Normal 0.0-0.1 [facility] Comment on above: Performed By: #### C BC ####[facility] Dydabbfdsa8337[address] [place], [place] [address]Dr. Farhat Leal Basophils/100 WBC (Bld) 0.7 % Normal 0.2-2.0 [facility] Comment on above: Performed By: #### C BC ####[facility] Gdtzkqsrav2394[address] [place], [place] [address]Dr. Farhat Leal EO # 0.2 103/ul Normal 0.0-0.7 [facility] Comment on above: Performed By: #### C BC ####[facility] Ncsrojxhha477[address] [place], [place] [address]Dr. Farhat Leal Eosinophils/100 WBC (Bld) 3.2 % Normal 0.9-7.0 [facility] Comment on above: Performed By: #### C BC ####[facility] Idppblnrmt2535 [place] [address]Dr. Farhat Leal Erythrocyte distribution width (RBC) [Ratio] 16.4 % Critically high 11.0-15.0 [facility] Comment on above: Performed By: #### C BC ####[facility] Olnbyfwckd1516[address] [place], [place] [address]Dr. Farhat Leal Hematocrit (Bld) [Volume fraction] 35.1 % Critically low 42.0-54.0 [facility] Comment on above: Performed By: #### C BC ####[facility] Vugiejfvmc287[address] [place], [place] [address]Dr. Farhat Leal Hemoglobin (Bld) [Mass/Vol] 11.6 g/dL Critically low 14.0-18.0 [facility] Comment on above: Performed By: #### C BC ####[facility] Renmwqhqff4163[address] [place], [place] [address]Dr. Farhat Leal IG # 0.03 10e3/ul Normal 0.00-0.03 [facility] Comment on above: Performed By: #### C BC ####[facility] Wvkshiwfem0200[address] [place], [place] [address]Dr. Farhat Leal IG % 0.4 % Normal 0.0-0.5 [facility] Comment on above: Performed By: #### C BC ####[facility] Ivymnkiken1723[address] [place], [place] [address]Dr. Farhat Leal LYMPH # 2.4 103/ul Normal 1.2-3.8 [facility] Comment on above: Performed By: #### C BC ####[facility] Rfzvlkmlkm3107[address] [place], [place] [address]Dr. Farhat Leal Lymphocytes/100 WBC (Bld) 35.1 % Normal 20.5-60.0 [facility] Comment on above: Performed By: #### C BC ####[facility] Qbjjmzybpx197[address] [place], [place] [address]Dr. Farhat Leal MANUAL DIFF REQ NO Normal [facility] Comment on above: Performed By: #### C BC ####[facility] Pwokdlrcbz2384 [place] [phone]. Farhat Elvis MCH (RBC) [Entitic mass] 29.4 pg Normal 25.9-34.0 [facility] Comment on above: Performed By: #### C BC ####[facility] Vniztnhffg9665 [place] [phone]. Farhat Elvis MCHC (RBC) [Mass/Vol] 33.0 g/dL Normal 29.9-35.2 [facility] Comment on above: Performed By: #### C BC ####[facility] Vpmudfdhyi6773 [place] [phone]. Madelynlorri Leal MCV (RBC) [Entitic vol] 88.9 fL Normal 80.0-94.0 [facility] Comment on above: Performed By: #### C BC ####[facility] Yljhkruxyj933[address] [place], [place] [address]Dr. Farhat Leal MONO # 0.7 103/ul Normal 0.3-0.8 [facility] Comment on above: Performed By: #### C BC ####[facility] Qokacistee8157[address] [place], [place] [address]Dr. Farhat Leal Monocytes/100 WBC (Bld) 9.6 % Normal 1.7-12.0 [facility] Comment on above: Performed By: #### C BC ####[facility] Lsxddfhwcl4239[address] [place], [place] [address]Dr. Farhat Leal NEUT # 3.5 103/ul Normal 1.4-6.5 [facility] Comment on above: Performed By: #### C BC ####[facility] Cdxnzfjadj[address] [place], [place] [id number]. Farhat Leal Neutrophils/100 WBC (Bld) 51.0 % Normal 43.0-75.0 [facility] Comment on above: Performed By: #### C BC ####[facility] Yxhrbuyvkx508[address] [place], [place] [id number]. Farhat Leal Platelet mean volume (Bld) [Entitic vol] 10.3 fL Normal 9.5-13.5 [facility] Comment on above: Performed By: #### C BC ####[facility] Ummnppyvev5167 [place] [phone]. Farhat Elvis PLT 184 103/ul Normal 150-450 [facility] Comment on above: Performed By: #### C BC ####[facility] Bpulhbonth2467 [place] [phone]. Madelynlorri Leal RBC 3.95 106/ul Critically low 4.70-6.10 [facility] Comment on above: Performed By: #### C BC ####[facility] Lroszpkrun0185 [place] [phone]. Madelynlorri Elvis WBC 7.0 103/ul Normal 4.0-11.0 [facility] Comment on above: Performed By: #### C BC ####[facility] Bxfeglkgvx0358 [place] [address]Dr. Farhat Leal PROF 14(COMP METB)on 023 Albumin [Mass/Vol] 2.6 g/dL Critically low 3.4-5.0 [facility] Comment on above: Performed By: #### C MP ####[facility] Bhaquidyoz3829[address] [place], [place] [address]Dr. Farhat Leal Albumin/Globulin [Mass ratio] 0.9 {ratio} Normal [facility] Comment on above: Performed By: #### C MP ####[facility] Oduwpbjaff6923 [place] [address]Dr. Farhat Leal ALP [Catalytic activity/Vol] 53 U/L Normal 46-116 [facility] Comment on above: Performed By: #### C MP ####[facility] Zmbfetieyn7302 [place] [address]Dr. Farhat Leal ALT [Catalytic activity/Vol] 17 U/L Normal 16-63 [facility] Comment on above: Performed By: #### C MP ####[facility] Devdopbtfj9126 [place] [address]Dr. Farhat Leal Anion gap [Moles/Vol] 10.0 mmol/L Normal [facility] Comment on above: Performed By: #### C MP ####[facility] Qxiyqvgslx1152 [place] [phone]. Farhat Leal AST [Catalytic activity/Vol] 19 U/L Normal 15-37 [facility] Comment on above: Performed By: #### C MP ####[facility] Wmtxkjoktw4223 [place] [phone]. Farhat Leal Bilirubin [Mass/Vol] 0.5 mg/dL Normal 0.2-1.0 [facility] Comment on above: Performed By: #### C MP ####[facility] Moxvcoluzy7[address] [place], [place] [address]Dr. Farhat Leal Calcium [Mass/Vol] 8.4 mg/dL Critically low 8.5-10.1 Th [facility] Comment on above: Performed By: #### C MP ####[facility] Ukgxiiloww4357[address] [place], [place] [address]Dr. Farhat Leal Chloride [Moles/Vol] 108 mmol/L Critically high 98-107 [facility] Comment on above: Performed By: #### C MP ####[facility] Rghrhelyne8[address] [place], [place] [address]Dr. Farhat Leal CO2 [Moles/Vol] 26.9 mmol/L Normal 21.0-32.0 [facility] Comment on above: Performed By: #### C MP ####[facility] Hrxvwckehe768[address] [place], [place] [address]Dr. Farhat Leal Creatinine [Mass/Vol] 1.20 mg/dL Normal 0.70-1.30 [facility] Comment on above: Performed By: #### C MP ####[facility] Feyrdwakfb6411 [place] [phone]. Farhat Elvis EGFR-AF MALDIVIAN >60 Normal >=60 [facility] Comment on above: Performed By: #### C MP ####[facility] Kogudxxdrw3[address] [place], [place] [address]Dr. Farhat Elvis EGFR-NON AF MALDIVIAN 59 mL/min/1.73m2 Critically low >=60 [facility] Comment on above: Performed By: #### C MP ####[facility] Jiibzqcvld3132 [place] [phone]. Farhat Leal Globulin (S) [Mass/Vol] 3.0 g/dL Normal [facility] Comment on above: Performed By: #### C MP ####[facility] Zlfhqoeqql1873 [place] [phone]. Farhat Leal Glucose [Mass/Vol] 213 mg/dL Critically high 74-106 [facility] Comment on above: Performed By: #### C MP ####[facility] Qrkikuxaxp0843 [place] [phone]. Farhat Leal Potassium [Moles/Vol] 3.9 mmol/L Normal 3.5-5.1 [facility] Comment on above: Performed By: #### C MP ####[facility] Xmpyvtejds0389 [place] [address]Dr. Farhat Leal Protein [Mass/Vol] 5.6 g/dL Critically low 6.4-8.2 Th [facility] Comment on above: Performed By: #### C MP ####[facility] Uttpglmiyp2518 [place] [address]Dr. Farhat Leal Sodium [Moles/Vol] 141 mmol/L Normal 136-145 [facility] Comment on above: Performed By: #### C MP ####[facility] Jokeyoixgw1044 [place] [phone]. Farhat Leal Urea nitrogen [Mass/Vol] 61.0 mg/dL Critically high 7.0-18.0 [facility] Comment on above: Performed By: #### C MP ####[facility] Egbcbdihir6262 [place] [address]Dr. Farhat Leal Urea nitrogen/Creatinine [Mass ratio] 50.8 mg/mg Normal [facility] Comment on above: Performed By: #### C MP ####[facility] Vipcdemnvh36[address] [place], [place] [address]Dr. Farhat Leal FK506 (TACROLIMUS) WHOLE BLO ODon 04-27-2022 Tacrolimus (FK506), Blood 16.5 ng/mL Normal 2.0-20.0 [facility] Comment on above: Result Comment: Trou gh (immediately following transplant) 15.0 . Trough (steady state, 2 weeks or more after transplant): 3.0 - 8.0 . Performed by LC-MS/MS technology. Performed By: #### F K506T ####[facility] Qnesilmths05[address] [place], [place] [address]Dr. Farhat Leal CBC AUTO DIFFon 04-24-2022 BASO # 0.0 103/ul Normal 0.0-0.1 [facility] Comment on above: Performed By: #### C BC ####[facility] Omwanufzys4077[address] [place], [place] [address]Dr. Farhat Leal Basophils/100 WBC (Bld) 0.5 % Normal 0.2-2.0 [facility] Comment on above: Performed By: #### C BC ####[facility] Aemzpqjbge433[address] [place], [place] [address]Dr. Farhat Leal EO # 0.2 103/ul Normal 0.0-0.7 [facility] Comment on above: Performed By: #### C BC ####[facility] Iecbjlogxi1512[address] [place], [place] [address]Dr. Farhat Leal Eosinophils/100 WBC (Bld) 3.1 % Normal 0.9-7.0 [facility] Comment on above: Performed By: #### C BC ####[facility] Mvdwybwvbu1674[address] [place], [place] [address]Dr. Farhat Leal Erythrocyte distribution width (RBC) [Ratio] 16.3 % Critically high 11.0-15.0 [facility] Comment on above: Performed By: #### C BC ####[facility] Gqzjpglque8878[address] [place], [place] [address]Dr. Farhat Leal Hematocrit (Bld) [Volume fraction] 34.0 % Critically low 42.0-54.0 [facility] Comment on above: Performed By: #### C BC ####[facility] Bgenqfnziu834[address] [place], [place] [address]Dr. Farhat Leal Hemoglobin (Bld) [Mass/Vol] 11.6 g/dL Critically low 14.0-18.0 [facility] Comment on above: Performed By: #### C BC ####[facility] Nrczvrlkzf7619 [place] [phone]. Madelynlorri Elvis IG # 0.02 10e3/ul Normal 0.00-0.03 [facility] Comment on above: Performed By: #### C BC ####[facility] Xjvmlhuzxb3103 [place] [phone]. Farhat Leal IG % 0.4 % Normal 0.0-0.5 [facility] Comment on above: Performed By: #### C BC ####[facility] Naoaeaknzx3705 [place] [address]Dr. Farhat Leal LYMPH # 2.2 103/ul Normal 1.2-3.8 [facility] Comment on above: Performed By: #### C BC ####[facility] Zdipvsocww0246 [place] [address]Dr. Farhat Leal Lymphocytes/100 WBC (Bld) 38.8 % Normal 20.5-60.0 [facility] Comment on above: Performed By: #### C BC ####[facility] Obweabowxh3399 [place] [address]DrSkylar Leal MANUAL DIFF REQ NO Normal [facility] Comment on above: Performed By: #### C BC ####[facility] Cutgpqjvfe3710 [place] [phone]. Farhat Leal MCH (RBC) [Entitic mass] 30.1 pg Normal 25.9-34.0 [facility] Comment on above: Performed By: #### C BC ####[facility] Jkxetwsexz4124 [place] [phone]. Madelynlorri Leal MCHC (RBC) [Mass/Vol] 34.1 g/dL Normal 29.9-35.2 [facility] Comment on above: Performed By: #### C BC ####[facility] Lsnwsalaaw4827 [place] [phone]. Farhat Leal MCV (RBC) [Entitic vol] 88.1 fL Normal 80.0-94.0 [facility] Comment on above: Performed By: #### C BC ####[facility] Vslxmmswva5536 [place] [phone]. Farhat Leal MONO # 0.6 103/ul Normal 0.3-0.8 [facility] Comment on above: Performed By: #### C BC ####[facility] Qmjnjuquln3707 [place] [phone]. Farhat Leal Monocytes/100 WBC (Bld) 10.8 % Normal 1.7-12.0 [facility] Comment on above: Performed By: #### C BC ####[facility] Uihvkozlxb2917 [place] [phone]. Farhat Leal NEUT # 2.6 103/ul Normal 1.4-6.5 [facility] Comment on above: Performed By: #### C BC ####[facility] Fiizrilzgq5868 [place] [phone]. Farhat Leal Neutrophils/100 WBC (Bld) 46.4 % Normal 43.0-75.0 [facility] Comment on above: Performed By: #### C BC ####[facility] Oiwizwvcvu3564 [place] [phone]. Farhat Leal Platelet mean volume (Bld) [Entitic vol] 10.9 fL Normal 9.5-13.5 [facility] Comment on above: Performed By: #### C BC ####[facility] Ohgbagdeor4351 [place] [phone]. Farhat Leal PLT 159 103/ul Normal 150-450 [facility] Comment on above: Performed By: #### C BC ####[facility] Hshiczwkhk2166 [place] [phone]. Farhat Leal RBC 3.86 106/ul Critically low 4.70-6.10 [facility] Comment on above: Performed By: #### C BC ####[facility] Dkxukhycbs6990 [place] [phone]. Farhat Leal WBC 5.6 103/ul Normal 4.0-11.0 [facility] Comment on above: Performed By: #### C BC ####[facility] Ipykaxdvjh4690 [place] [address]Dr. Farhat Leal PROTIMEon 04-24-2022 INR Coag (PPP) [Relative time] 3.23 {INR} Normal [facility] Comment on above: Performed By: #### P T ####[facility] Yeihxxllha1127 [place] [address]Dr. Farhat Leal INR GUIDELINES SEE BELOW Normal [facility] Comment on above: Result Comment: MALINA RED INR: 2.0 - 3.0 CONDITIONS NOT LISTED BELOW 2.5 - 3.5 FOR PROSTHETIC HEART VALVE REPLACEMENT 2.5 - 3.5 RECURRENT THROMBOSIS Performed By: #### P T ####[facility] Vashukbjgc89[address] [place], [place] [address]Dr. Farhat Leal PT Coag (PPP) [Time] 32.0 s Critically high 9.0-11.6 [facility] Comment on above: Performed By: #### P T ####[facility] Vjojebgsnb4668[address] [place], [place] [address]Dr. Farhat Leal FK506 (TACROLIMUS) WHOLE BLO ODon 04-20-2022 Tacrolimus (FK506), Blood 13.9 ng/mL Normal 2.0-20.0 [facility] Comment on above: Result Comment: Trou gh (immediately following transplant) 15.0 . Trough (steady state, 2 weeks or more after transplant): 3.0 - 8.0 . Performed by LC-MS/MS technology. Performed By: #### F K506T ####[facility] Qszfyunlqk5404[address] [place], [place] [address]Dr. Farhat Leal CBC AUTO DIFFon 04-17-2022 BASO # 0.0 103/ul Normal 0.0-0.1 [facility] Comment on above: Performed By: #### C BC ####[facility] Zfizyggqvp9215[address] [place], [place] [address]DrSkylar Leal Basophils/100 WBC (Bld) 0.4 % Normal 0.2-2.0 [facility] Comment on above: Performed By: #### C BC ####[facility] Pxxsrkmdxw[address] [place], [place] [id number]. Farhat Leal EO # 0.2 103/ul Normal 0.0-0.7 [facility] Comment on above: Performed By: #### C BC ####[facility] Rmjntkfrad1490 [place] [address]Dr. Farhat Leal Eosinophils/100 WBC (Bld) 2.8 % Normal 0.9-7.0 [facility] Comment on above: Performed By: #### C BC ####[facility] Fafyrawfnp9217[address] [place], [place] [address]Dr. Farhat Leal Erythrocyte distribution width (RBC) [Ratio] 16.1 % Critically high 11.0-15.0 [facility] Comment on above: Performed By: #### C BC ####[facility] Khtdkyqxfm4334 [place] [address]Dr. Farhat Leal Hematocrit (Bld) [Volume fraction] 35.7 % Critically low 42.0-54.0 [facility] Comment on above: Performed By: #### C BC ####[facility] Pwfixrtxag4739[address] [place], [place] [address]Dr. Farhat Leal Hemoglobin (Bld) [Mass/Vol] 12.2 g/dL Critically low 14.0-18.0 [facility] Comment on above: Performed By: #### C BC ####[facility] Uxlfpxhnzq3845[address] [place], [place] [address]Dr. Farhat Leal IG # 0.03 10e3/ul Normal 0.00-0.03 [facility] Comment on above: Performed By: #### C BC ####[facility] Pcqkmnxxji5074[address] [place], [place] [address]Dr. Farhat Leal IG % 0.4 % Normal 0.0-0.5 [facility] Comment on above: Performed By: #### C BC ####[facility] Paafxbfrmx8455[address] [place], [place] [address]Dr. Farhat Leal LYMPH # 2.4 103/ul Normal 1.2-3.8 [facility] Comment on above: Performed By: #### C BC ####[facility] Vmnzndbcrj9809 [place] [phone]. Farhat Elvis Lymphocytes/100 WBC (Bld) 36.1 % Normal 20.5-60.0 [facility] Comment on above: Performed By: #### C BC ####[facility] Vbpglhbmrh7064 [place] [address]Dr. Madelynlorri Leal MANUAL DIFF REQ NO Normal [facility] Comment on above: Performed By: #### C BC ####[facility] Ruushpnueb8498 [place] [address]Dr. Farhat Elvis MCH (RBC) [Entitic mass] 30.3 pg Normal 25.9-34.0 [facility] Comment on above: Performed By: #### C BC ####[facility] Yjzcccnjfg7[address] [place], [place] [address]Dr. Madelynlorri Leal MCHC (RBC) [Mass/Vol] 34.2 g/dL Normal 29.9-35.2 [facility] Comment on above: Performed By: #### C BC ####[facility] Dtkgkyhqsw8366[address] [place], [place] [address]Dr. Madelynlorri Leal MCV (RBC) [Entitic vol] 88.6 fL Normal 80.0-94.0 [facility] Comment on above: Performed By: #### C BC ####[facility] Omzfguhmjt764[address] [place], [place] [address]Dr. Farhat Leal MONO # 0.7 103/ul Normal 0.3-0.8 [facility] Comment on above: Performed By: #### C BC ####[facility] Mjfqedzlzp7611[address] [place], [place] [address]Dr. Madelynlorri Leal Monocytes/100 WBC (Bld) 10.1 % Normal 1.7-12.0 [facility] Comment on above: Performed By: #### C BC ####[facility] Jfpwzqauzk7222[address] [place], [place] [address]Dr. Farhat Leal NEUT # 3.4 103/ul Normal 1.4-6.5 [facility] Comment on above: Performed By: #### C BC ####[facility] Dsbvjojibc4703 [place] [address]Dr. Farhat Leal Neutrophils/100 WBC (Bld) 50.2 % Normal 43.0-75.0 [facility] Comment on above: Performed By: #### C BC ####[facility] Muestlshje0189 [place] [address]Dr. Farhat Leal Platelet mean volume (Bld) [Entitic vol] 11.8 fL Normal 9.5-13.5 [facility] Comment on above: Performed By: #### C BC ####[facility] Gqteaiblfe1574 [place] [address]Dr. Farhat Leal PLT 193 103/ul Normal 150-450 [facility] Comment on above: Performed By: #### C BC ####[facility] Iwzxeulwdm94[address] [place], [place] [address]Dr. Farhat Leal RBC 4.03 106/ul Critically low 4.70-6.10 [facility] Comment on above: Performed By: #### C BC ####[facility] Sgmntkuozi505[address] [place], [place] [address]Dr. Farhat Leal WBC 6.8 103/ul Normal 4.0-11.0 [facility] Comment on above: Performed By: #### C BC ####[facility] Gzpxuuxsvo2554[address] [place], [place] [address]Dr. Farhat Leal PROF 14(COMP METB)on 023 Albumin [Mass/Vol] 2.9 g/dL Critically low 3.4-5.0 [facility] Comment on above: Performed By: #### C MP ####[facility] Negbldrprr5130 [place] [address]Dr. Farhat Leal Albumin/Globulin [Mass ratio] 0.9 {ratio} Normal [facility] Comment on above: Performed By: #### C MP ####[facility] Bzzskjuzkf006[address] [place], [place] [address]Dr. Farhat Leal ALP [Catalytic activity/Vol] 67 U/L Normal 46-116 [facility] Comment on above: Performed By: #### C MP ####[facility] Mqxuoirarw1969 [place] [address]Dr. Farhat Leal ALT [Catalytic activity/Vol] 15 U/L Critically low 16-63 [facility] Comment on above: Performed By: #### C MP ####[facility] Heapxoryxo0334 [place] [address]Dr. Farhat Leal Anion gap [Moles/Vol] 10.8 mmol/L Normal Th [facility] Comment on above: Performed By: #### C MP ####[facility] Wrxivjwief199[address] [place], [place] [address]Dr. Farhat Leal AST [Catalytic activity/Vol] 23 U/L Normal 15-37 [facility] Comment on above: Performed By: #### C MP ####[facility] Iopygirjzv9645[address] [place], [place] [address]Dr. Farhat Leal Bilirubin [Mass/Vol] 0.6 mg/dL Normal 0.2-1.0 [facility] Comment on above: Performed By: #### C MP ####[facility] Aglrndihjk48[address] [place], [place] [address]Dr. Farhat Leal Calcium [Mass/Vol] 8.7 mg/dL Normal 8.5-10.1 [facility] Comment on above: Performed By: #### C MP ####[facility] Cvvmmhoyxd9279[address] [place], [place] [address]Dr. Farhat Leal Chloride [Moles/Vol] 105 mmol/L Normal 98-107 [facility] Comment on above: Performed By: #### C MP ####[facility] Frwlsuaskt1793[address] [place], [place] [address]Dr. Farhat Leal CO2 [Moles/Vol] 29.5 mmol/L Normal 21.0-32.0 [facility] Comment on above: Performed By: #### C MP ####[facility] Vhfajijcqe3842[address] [place], [place] [address]Dr. Farhat Leal Creatinine [Mass/Vol] 1.37 mg/dL Critically high 0.70-1.30 [facility] Comment on above: Performed By: #### C MP ####[facility] [address]jibtofdv[address] [place], [place] [id number]. Farhat Elvis EGFR-AF MALDIVIAN >60 Normal >=60 [facility] Comment on above: Performed By: #### C MP ####[facility] [address]ygwhtqzen[address] [place] [address]Dr. Farhat Elvis EGFR-NON AF MALDIVIAN 50 mL/min/1.73m2 Critically low >=60 [facility] Comment on above: Performed By: #### C MP ####[facility] [address] [address]Dr. Farhat Elvis Globulin (S) [Mass/Vol] 3.1 g/dL Normal [facility] Comment on above: Performed By: #### C MP ####[facility] [address] [place], [place] [address]Dr. Madelynlorri Elvis Glucose [Mass/Vol] 203 mg/dL Critically high 74-106 [facility] Comment on above: Performed By: #### C MP ####[facility] Gr[address]czimcl[address] [address]Dr. Farhat Leal Potassium [Moles/Vol] 4.3 mmol/L Normal 3.5-5.1 [facility] Comment on above: Performed By: #### C MP ####[facility] D[address] [place], [place] [address]Dr. Madelynlorri Elvis Protein [Mass/Vol] 6.0 g/dL Critically low 6.4-8.2 Th [facility] Comment on above: Performed By: #### C MP ####[facility] [address]gcffc[address] [address]Dr. Farhat Elvis Sodium [Moles/Vol] 141 mmol/L Normal 136-145 [facility] Comment on above: Performed By: #### C MP ####[facility] C[address]qcmvg[address] [place], [place] [address]Dr. Farhat Leal Urea nitrogen [Mass/Vol] 65.0 mg/dL Critically high 7.0-18.0 [facility] Comment on above: Performed By: #### C MP ####[facility] [address] [place], [place] [address]Dr. Farhat Leal Urea nitrogen/Creatinine [Mass ratio] 47.4 mg/mg Normal [facility] Comment on above: Performed By: #### C MP ####[facility] [address] [place] [phone]. Farhat Leal PROTIMEon 04-15-2022 INR Coag (PPP) [Relative time] 3.88 {INR} Normal [facility] Comment on above: Performed By: #### P T ####[facility] [address]abqri[address] [place] [phone] Farhat Leal INR GUIDELINES SEE BELOW Normal [facility] Comment on above: Result Comment: MALINA RED INR: 2.0 - 3.0 CONDITIONS NOT LISTED BELOW 2.5 - 3.5 FOR PROSTHETIC HEART VALVE REPLACEMENT 2.5 - 3.5 RECURRENT THROMBOSIS Performed By: #### P T ####[facility] [address]ro[address] [place] [phone]. Farhat Leal PT Coag (PPP) [Time] 38.1 s Critically high 9.0-11.6 [facility] Comment on above: Performed By: #### P T ####[facility] R[address]fcjptnj[address] [place] [phone]. Farhat Leal Glucose Glucometer (dC) [M ass/Vol]Ordered By: Sadia Aguilar on 04-14-2022 Glucose [Mass/Vol] 162 mg/dL [facility] Comment on above: Random Glucose Refer ence Range is dependent on time and content of last meal. Glucose of more than 200 mg/dL in a nonstressed, ambulatory subject supports the diagnosis of Diabetes Mellitus. Glucose Poct Glucometerson 0 04-14-2022 Commemt1 Glu2: Cleaned Meter Normal [facility] Comment on above: Result Comment: PERF ORMED BY: [facility] [address] [place] [address] PATHOLOGIST ENTERTAINMENT CENTRE MANAGER JOSE F ELLIOTT M.D. Performed By: #### G LULS #### Point of Care testing , Glucose [Mass/Vol] 162 mg/dL Normal [facility] Comment on above: Result Comment: [facility] Glucose Reference Range is dependent on time and content of last meal. Glucose of more than 200 mg/dL in a nonstressed, ambulatory subject supports the diagnosis of Diabetes Mellitus. Performed By: #### G MADY #### Point of Care testing , No Panel InformationOrdered By: Sadia Aguilar on 04-14-2022 Bedside Glucose Comment Glu2: cleaned meter [facility] MAGNESIUMon 04-13-2022 Magnesium [Mass/Vol] 1.7 mg/dL Critically low 1.8-2.4 [facility] Comment on above: Performed By: #### M HENRI Manzo ####[facility] [address] [place] [address]DrSkylar Leal PHOSPHORUSon 04-13-2022 Phosphate [Mass/Vol] 4.8 mg/dL Critically high 2.6-4.7 [facility] Comment on above: Performed By: #### HENRI Winters ####[facility] N[address]ktclpx[address] [place], [place] [address]DrSkylar Leal PROTIMEon 04-13-2022 INR Coag (PPP) [Relative time] 3.16 {INR} Normal [facility] Comment on above: Performed By: #### P T ####[facility] Vspvharxrd[address] [place], [place] [address]DrSkylar Leal INR GUIDELINES SEE BELOW Normal [facility] Comment on above: Result Comment: MALINA RED INR: 2.0 - 3.0 CONDITIONS NOT LISTED BELOW 2.5 - 3.5 FOR PROSTHETIC HEART VALVE REPLACEMENT 2.5 - 3.5 RECURRENT THROMBOSIS Performed By: #### P T ####[facility] [address] [place] [address]DrSkylar Leal PT Coag (PPP) [Time] 31.4 s Critically high 9.0-11.6 [facility] Comment on above: Performed By: #### P T ####[facility] S[address] [place], [place] [address]DrSkylar Leal MAGNESIUMon 03-11-2022 Magnesium [Mass/Vol] 1.6 mg/dL Critically low 1.8-2.4 [facility] Comment on above: Performed By: #### M G, PHOS ####[facility] [address] [place], [place] [address]No. Farhat Leal PHOSPHORUSon 03-11-2022 Phosphate [Mass/Vol] 5.3 mg/dL Critically high 2.6-4.7 [facility] Comment on above: Performed By: #### M G, PHOS ####[facility] [address] [place], [place] [address]Ah. Farhat Leal CNOVon 02-26-2022 CNOV Office Visit (VASSMN ) ALEX ALMONTE Kate ([id number]) 1945 M TRN Date Time Provider Department 02/26/22 3:00 PM HINA PETERSON During your visit today, we recorded the following information about you: Temperature Pulse Blood pressure 96.6 degrees 75/minute 88/75 Hina Peterson MD, MD 02/26/2022 4:31 PM [facility] [place] DEPARTMENT OF VASCULAR SURGERY OUTPATIENT VISIT DATE [...] his postop visit. He has been in custodial since then and has been recovering from his acute on chronic congestive heart failure. His wound has largely been healing without any issues and the maxwell and sutures were removed at the nursing facility. He comes here with a lateral wound eschar. He denies any fevers, chills, or any drainage. He is on anticoagulation. 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 Magic Cup Loving with lunch aspirin, enteric coated (ASPIRIN, ENTERIC COATED) 81 mg EC tablet Take 1 tablet by (more content not included)... Normal [facility] PROTIMEon 02-25-2022 INR Coag (PPP) [Relative time] 1.31 {INR} Normal [facility] Comment on above: Performed By: #### P T ####[facility] [address] [place] [address]DrSkylar Leal INR GUIDELINES SEE BELOW Normal [facility] Comment on above: Result Comment: MALINA RED INR: 2.0 - 3.0 CONDITIONS NOT LISTED BELOW 2.5 - 3.5 FOR PROSTHETIC HEART VALVE REPLACEMENT 2.5 - 3.5 RECURRENT THROMBOSIS Performed By: #### P T ####[facility] [address]ch[address] [place], [place] [address]LySkylar Farhat Leal PT Coag (PPP) [Time] 13.7 s Critically high 9.0-11.6 [facility] Comment on above: Performed By: #### P T ####[facility] [address] [place], [place] [address]XmSkylar Farhat Elvis Hassan 02-19-2022 CNPN Telephone (TXCTGL) ALEX ALMONTE ([id number]) 1945 M TRN Date Time Provider Department 02/19/22 AUGUSTA MEDRANO TXCTGL During your visit today, we recorded the following information about you: Augusta Medrano RN 02/19/2022 11:16 AM Signed Alex Almonte's nursing facility, [facility], called regarding elevated tacrolimus level (23.9). Spoke [...] by mouth daily with lunch. 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 DIABETES UNCOMPL ADULT-UNCONTRLLED [[id number]] 02/24/2002 KIDNEY TRANSPLANT STATUS [Z94.0] 09/07/2003 PROPHYLACTIC IMMUNOTHERAPY [Z29.8] 07/30/2006 [facility] STEROIDS [ZDW3827] 07/30/2006 VITAMIN D DEFICIENCY NOS [E55.9] 09/07/2008 [...] diabetes mellitus with diabetic peripher*11/29/2021 Atherosclerosis of ute mountain artery of extremity w*11/29/2021 Malnutrition of moderate degree (HCC) [E44.0] 12/01/2021 Dermatitis associated with moisture [L30.8] 12/04/2021 Encounter Status:Closed by AUGUSTA MEDRANO on 02/19/22 [facility] Sonya 02-18-2022 CNPN Telephone (PODCCP) SUZYMINEJESÚS Love ([id number]) 1945 M TRN Date Time Provider Department 02/18/22 DEVON MOREIRA PODREAL During your visit today, we recorded the following information about you: Yumiko Denise 02/18/2022 3:16 PM Signed Reason for call: Mr. Almnote would like to request a sooner appointment with Dr. Peterson than 04/13/2022. Contact Name (if not the patient) Alex's nurse Home and cell number(Ask for Alex's nurse) [phone] Diagnosis 4 mo f/u wound check Best [...] by mouth daily with lunch. 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 Normal [facility] CNOVon 02-05-2022 CNOV Office Visit (TXCTGL ) ALEX ALMONTE ([id number]) 1945 M TRN Date Time Provider Department 02/05/22 8:20 AM [facility] TXCTGL During your visit today, we recorded the following information about you: Temperature Pulse Blood pressure 96.7 degrees 79/minute 72/42 Asia Pike MD 02/05/2022 9:38 AM Signed [facility] [place] Transplant Follow up Portions of this note [...] and snacks patient declined. Indra scale at [facility]: 166.2 lbs per patient. Bed sore on coccyx causing discomfort. Being changed regularly at [facility]- reported to be smaller around but still as deep. Patient not very up to date with medications. Patient brought paperwork from [email or web address] with all medications being received. Patient unsure if they have been drawing labs regularly. Last Tac from 01/19: 12.9 and K 5.9. In need of current labs. Lab orders will be sent with patient and follows as below: Kidney and Pancreas Transplant Standing Lab Orders [address] [place], [place] [address] February 05, 2022 Alex Almonte 1945 [id number] STANDARD TESTING: Diagnosis Codes: Z94.0 Kidney Transplant [...] AT YOUR LABORATORY FACILITY AND FAX TO [phone]. PLEASE CALL [phone]. Provider: Dr. Pike Current Outpatient Medications Medication [...] Take 237 (more content not included)... Normal [facility] PROTEIN CREATININE RATIOon 1 04-08-2021 Protein/Creatinine (U) [Mass ratio] 0.10 mg/mg <0.15 mg/mg [facility] PROTIMEon 02-05-2022 INR Coag (PPP) [Relative time] 2.90 {INR} Normal [facility] Comment on above: Performed By: #### P T ####[facility] [address] [place] [address]DrSkylar Leal INR GUIDELINES SEE BELOW Normal [facility] Comment on above: Result Comment: MALINA RED INR: 2.0 - 3.0 CONDITIONS NOT LISTED BELOW 2.5 - 3.5 FOR PROSTHETIC HEART VALVE REPLACEMENT 2.5 - 3.5 RECURRENT THROMBOSIS Performed By: #### P T ####[facility] [address] [place] [address]Dr. Farhat Leal PT Coag (PPP) [Time] 29.2 s Critically high 9.0-11.6 [facility] Comment on above: Performed By: #### P T ####[facility] [address] [place], [place] [address]TfSkylar Leal Prot/Creat Uron 02-05-2022 Protein/Creatinine (U) [Mass ratio] 0.10 mg/mg Normal <0.15 [facility] Comment on above: Order Comment: Speci men Type: URINE SPECIMENOrdering Facility: [facility] Address: [address] [place] [address] Result Comment: Adul t Proteinuria Categories: <0.15 mg/mg is considered normal to mildly increased 0.15 - 0.50 mg/mg is considered moderately increased >0.50 mg/mg is considered severely increased KDIGO. (2013). KDIGO 2012 Clinical Practice Guideline for the Evaluation and Management of Chronic Kidney Disease. Official Journal of the International Society of Nephrology, 3(1), 1-150. Performed By: #### 2 890-2 ####[facility] LABIA [id number] [place] [address] [place] Protein/Creatinine (U) [Mass ratio]on 02-05-2022 Creatinine (U) [Mass/Vol] 86.9 mg/dL 20.0 - 300.0 mg/dL [facility] Protein (U) [Mass/Vol] 9 mg/dL 0 - 20 mg/dL [facility] Creatinine (U) [Mass/Vol] 86.9 mg/dL Normal 20.0-300.0 [facility] Comment on above: Order Comment: Speci men Type: URINE SPECIMENOrdering Facility: [facility] Address: [address] [id number] Performed By: #### 2 890-2 ####[facility] [id number] [place] [address] [place] Protein (U) [Mass/Vol] 9 mg/dL Normal 0-20 [facility] Comment on above: Order Comment: Speci men Type: URINE SPECIMENOrdering Facility: [facility] Address: [address] Performed By: #### 2 890-2 ####[facility] LABCLIA [id number] [place] [address] [place] URINALYSIS, DIPSTICK ONLYon 02-05-2022 Bilirubin Ql (U) Negative Normal Negative [facility] Comment on above: Order Comment: Speci men Type: URINE SPECIMEN [facility] Address: [address] [place] [address] Performed By: #### U A #### [facility] CLIA [id number] [address] [place] [address] [place] Clarity (Unsp spec) Clear Normal Clear [facility] Comment on above: Order Comment: Speci men Type: URINE SPECIMEN [facility] Address: [address] [place] [address] Performed By: #### U A #### [facility] CLIA [id number] [address] [place] [address] [place] Color (U) Yellow Normal Yellow [facility] Comment on above: Order Comment: Speci men Type: URINE SPECIMEN [facility] Address: [address] [place] [address] Performed By: #### U A #### [facility] CLIA [id number] [address] [place] [address] [place] Glucose Test strip (U) [Mass/Vol] 3+ Abnormal Trace, Negative [facility] Comment on above: Order Comment: Speci men Type: URINE SPECIMEN [facility] Address: [address] [place], [place] [address] Performed By: #### U A #### [facility] CLIA [id number] [address] [place] [address] [place] Hemoglobin Ql (U) Negative Normal Negative, Trace [facility] Comment on above: Order Comment: Speci men Type: URINE SPECIMEN [facility] Address: [address] [address] Performed By: #### U A #### [facility] CLIA [id number] [address] [place] [address] [place] Ketones Ql (U) Trace Normal Negative, Trace [facility] Comment on above: Order Comment: Speci men Type: URINE SPECIMEN [facility] Address: [address] [address] Performed By: #### U A #### [facility] CLIA [id number] [address] [place] [address] [place] Leukocyte esterase Test strip Ql (U) Negative Normal Negative, 25 Loraine/mL [facility] Comment on above: Order Comment: Speci men Type: URINE SPECIMEN [facility] Address: [address] [place] [address] Performed By: #### U A #### [facility] CLIA [id number] [address] [place] [address] [place] Nitrite Ql (U) Negative Normal Negative [facility] Comment on above: Order Comment: Speci men Type: URINE SPECIMEN [facility] Address: [address] [place] [address] Performed By: #### U A #### [facility] CLIA [id number] [address] [place] [address] [place] pH (U) 5.5 [pH] Normal 5.0-8.0 [facility] Comment on above: Order Comment: Speci men Type: URINE SPECIMEN [facility] Address: [address] [place] [address] Performed By: #### U A #### [facility] CLIA [id number] [address] [place] [address] [place] Protein (U) [Mass/Vol] Negative Normal Trace , Negative [facility] Comment on above: Order Comment: Speci men Type: URINE SPECIMEN [facility] Address: [address] [place] [address] Performed By: #### U A #### [facility] CLIA [id number] [facility] [place] Specific gravity (U) [Rel density] 1.014 Normal 1.005-1.030 [facility] Comment on above: Order Comment: Speci men Type: URINE SPECIMEN [facility] Address: [address] [place] [address] Performed By: #### U A #### [facility] CLIA [id number] [address] [place] [address] [place] Urobilinogen Ql (U) 1+ Abnormal Negative [facility] Comment on above: Order Comment: Speci men Type: URINE SPECIMEN [facility] Address: [address] [place] [address] Performed By: #### U A #### [facility] CLIA [id number] [address] [place] [address] [place] Bilirubin Ql (U) Negative Negative [facility] Clarity (Unsp spec) Clear Clear [facility] Color (U) Yellow Yellow [facility] Glucose Test strip (U) [Mass/Vol] 3+ Abnormal Trace, Negative [facility] Hemoglobin Ql (U) Negative Negative, Trace [facility] Ketones Ql (U) Trace Negative, [facility] Leukocyte esterase Test strip Ql (U) Negative Negative, 25 Loraine/mL [facility] Nitrite Ql (U) Negative Negative [facility] pH (U) 5.5 [pH] 5.0 - 8.0 [facility] Protein (U) [Mass/Vol] Negative Trace , Negative [facility] Specific gravity (U) [Rel density] 1.014 1.005 - 1.[address] [facility] Urobilinogen Ql (U) 1+ Abnormal Negative [facility] FK506 (TACROLIMUS) WHOLE BLO ODon 12-15-2022 Tacrolimus (FK506), Blood 11.1 ng/mL Normal 2.0-20.0 [facility] Comment on above: Result Comment: Trou gh (immediately following transplant) 15.0 . Trough (steady state, 2 weeks or more after transplant): 3.0 - 8.0 . Performed by LC-MS/MS technology. Performed By: #### F K506T ####[facility] [address] [place] [address]Dr. Farhat Leal PHOSPHORUSon 01-26-2022 Phosphate [Mass/Vol] 4.1 mg/dL Normal 2.6-4.7 [facility] Comment on above: Performed By: #### C CARA, PHOS ####[facility] [address] [place], [place] [address]Dr. Farhat Leal PROF 14(COMP METB)on 022 Albumin [Mass/Vol] 2.1 g/dL Critically low 3.4-5.0 [facility] Comment on above: Performed By: #### C CARA, PHOS ####[facility] [address]vl[address] [place], [place] [address]Dr. Farhat Leal Albumin/Globulin [Mass ratio] 0.6 {ratio} Normal [facility] Comment on above: Performed By: #### C CARA, PHOS ####[facility] [address] [place], [place] [address]Dr. Farhat Leal ALP [Catalytic activity/Vol] 89 U/L Normal 46-116 [facility] Comment on above: Performed By: #### C CARA, PHOS ####[facility] [address]htprdeix[address] [place], [place] [address]Dr. Farhat Leal ALT [Catalytic activity/Vol] 27 U/L Normal 16-63 [facility] Comment on above: Performed By: #### C CARA, PHOS ####[facility] [address] [place], [place] [address]Dr. Farhat Leal Anion gap [Moles/Vol] 12.3 mmol/L Normal [facility] Comment on above: Performed By: #### C CARA, PHOS ####[facility] [address] [place] [address]Dr. Farhat Leal AST [Catalytic activity/Vol] 53 U/L Critically high 15-37 [facility] Comment on above: Performed By: #### C MP, PHOS ####[facility] [address]cfh[address] [place] [address]Dr. Farhat Leal Bilirubin [Mass/Vol] 0.6 mg/dL Normal 0.2-1.0 [facility] Comment on above: Performed By: #### C MP, PHOS ####[facility] [address] [place] [address]Dr. Farhat Leal Calcium [Mass/Vol] 8.0 mg/dL Critically low 8.5-10.1 Th e [facility] Comment on above: Performed By: #### C CARA, PHOS ####[facility] [address] [place], [place] [address]Dr. Farhat Leal Chloride [Moles/Vol] 97 mmol/L Critically low 98-107 [facility] Comment on above: Performed By: #### C CARA, PHOS ####[facility] [address]bv[address] [place], [place] [address]Dr. Farhat Leal CO2 [Moles/Vol] 26.6 mmol/L Normal 21.0-32.0 [facility] Comment on above: Performed By: #### C CARA, PHOS ####[facility] [address] [place], [place] [address]Dr. Farhat Leal Creatinine [Mass/Vol] 1.03 mg/dL Normal 0.70-1.30 [facility] Comment on above: Performed By: #### C CARA, PHOS ####[facility] [address] [place] [address]Dr. Farhat Leal EGFR-AF MALDIVIAN >60 Normal >=60 [facility] Comment on above: Performed By: #### C MP, PHOS ####[facility] [address] [place] [address]Dr. Farhat Leal EGFR-NON AF MALDIVIAN >60 Normal >=60 [facility] Comment on above: Performed By: #### C MP, PHOS ####[facility] [address] [place] [address]Dr. Farhat Leal Globulin (S) [Mass/Vol] 3.7 g/dL Normal [facility] Comment on above: Performed By: #### C MP, PHOS ####[facility] [address] [place] [address]Dr. Farhat Leal Glucose [Mass/Vol] 287 mg/dL Critically high 74-106 [facility] Comment on above: Performed By: #### C MP, PHOS ####[facility] [address] [place], [place] [address]Dr. Farhat Leal Potassium [Moles/Vol] 3.9 mmol/L Normal 3.5-5.1 [facility] Comment on above: Performed By: #### C CARA, PHOS ####[facility] [address] [place], [place] [address]Dr. Farhat Leal Protein [Mass/Vol] 5.8 g/dL Critically low 6.4-8.2 Th [facility] Comment on above: Performed By: #### C CARA, PHOS ####[facility] [address] [place], [place] [address]Dr. Farhat Leal Sodium [Moles/Vol] 132 mmol/L Critically low 136-145 Th [facility] Comment on above: Performed By: #### C MP, PHOS ####[facility] [address] [place], [place] [address]Dr. Farhat Leal Urea nitrogen [Mass/Vol] 23.0 mg/dL Critically high 7.0-18.0 [facility] Comment on above: Performed By: #### C MP, PHOS ####[facility] [address] [place], [place] [address]Dr. Farhat Leal Urea nitrogen/Creatinine [Mass ratio] 22.3 mg/mg Normal [facility] Comment on above: Performed By: #### C MP, PHOS ####[facility] [address] [place], [place] [address]Dr. Farhat Elvis FK506 (TACROLIMUS) WHOLE BLO ODon 12-07-2022 Tacrolimus (FK506), Blood 12.2 ng/mL Normal 2.0-20.0 [facility] Comment on above: Result Comment: Trou gh (immediately following transplant) 15.0 . Trough (steady state, 2 weeks or more after transplant): 3.0 - 8.0 . Performed by LC-MS/MS technology. Performed By: #### F K506T ####[facility] [address] [place] [id number]. Farhat Leal ACID FAST SMEAR AND CXon Acid Fast Culture Negative Normal [facility] Comment on above: Result Comment: No a abdiel fast bacilli isolated after 6 weeks. Performed By: #### A FB ####[facility] [address] [place] [phone]. Farhat Leal Acid Fast Smear Negative Normal [facility] Comment on above: Performed By: #### A FB ####[facility] [address] [address]Dr. Farhat Leal [employer] Specimen Processing Tissue Grinding Normal [facility] Comment on above: Performed By: #### A FB ####[facility] Vbsldeenub60[address] [place] [phone]. Farhat Hassan 01-20-2022 CONRADO Telephone (KIMBERLY) ALEX ALMONTE ([id number]) 1945 M TRN Date Time Provider Department 01/20/22 VAN OLIVAREZ During your visit today, we recorded the following information about you: Van Olivarez APRN.DIAMANTE 01/20/2022 1:14 PM Signed Labs noted from yesterday. Pt is currently residing at [facility], I spoke with the Nurse, the results has been addressed by Physician caring for pt. He had been placed on Chlor Con and this has been discontinued and hyperkalemia has been treated. Van Olivarez APRN.OIL PROGRAM COMPLIANCE SPECIALIST Allergies As of Date: 01/20/2022 Noted Allergy Reaction PYRIDOSTIGMINE BROMIDE 08/04/2021 8 - GI Upset Date Reviewed: 01/15/2022 Reviewed by: Raquel Tai APRN.OIL PROGRAM COMPLIANCE SPECIALIST - Fully Assessed Reason for Visit: Results [...] by mouth daily with lunch. 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*11/29/2021 Malnutrition of moderate degree (HCC) [E44.0] 12/01/2021 Dermatitis associated with moisture [L30.8] 12/04/2021 Encounter Status:Closed by VAN OLIVAREZ on 01/20/22 Normal [facility] Orders Onlyon 01-20-2022 Orders Only [id number] Alex Almonte 1945 M Date Provider Department Center 01/20/2022 Fidelina8-SUSIE HERNANDES [facility] No family history on file Normal [facility] PROF 14(COMP METB)on 022 Albumin [Mass/Vol] 1.9 g/dL Critically low 3.4-5.0 Th [facility] Comment on above: Performed By: #### C MP ####[facility] Mlhsgqkmnj[address] [place] [address]Dr. Farhat Leal Albumin/Globulin [Mass ratio] 0.5 {ratio} Normal [facility] Comment on above: Performed By: #### C MP ####[facility] Pyudyqumdm[address] [place] [address]Dr. Farhat Leal ALP [Catalytic activity/Vol] 78 U/L Normal 46-116 [facility] Comment on above: Performed By: #### C MP ####[facility] Qxcqaznvqj9065 [place] [address]DrSkylar Leal ALT [Catalytic activity/Vol] 22 U/L Normal 16-63 [facility] Comment on above: Performed By: #### C MP ####[facility] Cvwxjgfovq37[address] [place] [address]Dr. Farhat Leal Anion gap [Moles/Vol] 8.0 mmol/L Normal [facility] Comment on above: Performed By: #### C MP ####[facility] Dlaonqnbjg4405 [place] [phone]. Farhat Leal AST [Catalytic activity/Vol] 92 U/L Critically high 15-37 [facility] Comment on above: Performed By: #### C MP ####[facility] Rrzittzeas77[address] [place] [phone]. Farhat Leal Bilirubin [Mass/Vol] 0.7 mg/dL Normal 0.2-1.0 [facility] Comment on above: Performed By: #### C MP ####[facility] Iyvqzuyhay9382 [place] [phone]. Farhat Leal Calcium [Mass/Vol] 7.8 mg/dL Critically low 8.5-10.1 Th e [facility] Comment on above: Performed By: #### C MP ####[facility] [address]dkrqiia[address] [place], [place] [address]Dr. Farhat Leal Chloride [Moles/Vol] 99 mmol/L Normal 98-107 [facility] Comment on above: Performed By: #### C MP ####[facility] Ahelwbyvpu99[address] [place], [place] [address]Dr. Farhat Leal CO2 [Moles/Vol] 30.9 mmol/L Normal 21.0-32.0 The [facility] Comment on above: Performed By: #### C MP ####[facility] Hgkejwbwze68[address] [place], [place] [address]Dr. Farhat Leal Creatinine [Mass/Vol] 0.95 mg/dL Normal 0.70-1.30 [facility] Comment on above: Performed By: #### C MP ####[facility] Bffgcvycxs01[address] [place] [phone]. Farhat Elvis EGFR-AF MALDIVIAN >60 Normal >=60 [facility] Comment on above: Performed By: #### C MP ####[facility] Vspzubvpqx9583 [place] [phone]. Farhat Elvis EGFR-NON AF MALDIVIAN >60 Normal >=60 [facility] Comment on above: Performed By: #### C MP ####[facility] Jxukqdwzpe1843 [place] [phone]. Farhat Leal Globulin (S) [Mass/Vol] 3.9 g/dL Normal [facility] Comment on above: Performed By: #### C MP ####[facility] Ltdkjndeoc8744 [place] [phone]. Farhat Leal Glucose [Mass/Vol] 124 mg/dL Critically high 74-106 T [facility] Comment on above: Performed By: #### C MP ####[facility] Iobcskgdpf[address] [place] [address]Dr. Farhat Leal Potassium [Moles/Vol] 5.9 mmol/L Critically high 3.5-5.1 [facility] Comment on above: Performed By: #### C MP ####[facility] Hvmvxlhpsj4326 [place] [address]Dr. Farhat Leal Protein [Mass/Vol] 5.8 g/dL Critically low 6.4-8.2 Th [facility] Comment on above: Performed By: #### C MP ####[facility] Bgqlpzrhkk6439 [place] [address]Dr. Farhat Leal Sodium [Moles/Vol] 132 mmol/L Critically low 136-145 Th [facility] Comment on above: Performed By: #### C MP ####[facility] Eowaoyplhe9027 [place] [address]Dr. Farhat Leal Urea nitrogen [Mass/Vol] 18.0 mg/dL Normal 7.0-18.0 [facility] Comment on above: Performed By: #### C MP ####[facility] Pqsdjnrbnt8368 [place] [address]Dr. Farhat Leal Urea nitrogen/Creatinine [Mass ratio] 18.9 mg/mg Normal [facility] Comment on above: Performed By: #### C MP ####[facility] Fyuoehscwg6[address] [place], [place] [address]Dr. Farhat Leal INR (POC)on 01-12-2022 INR Coag (PPP) [Relative time] 2.6 {INR} High 0.8 - 1.[address] [facility] Internal Quality Check Acceptable Cl [facility] ACID FAST SMEAR AND CXon Acid Fast Culture Negative Normal The [facility] Comment on above: Result Comment: No a abdiel fast bacilli isolated after 6 weeks. Performed By: #### A FB ####[facility] Hrzmgmotqd7657 [place] [phone]. Farhat Leal Acid Fast Smear Negative Normal [facility] Comment on above: Performed By: #### A FB ####[facility] Teqynltwjx954[address] [place], [place] [address]Dr. Farhat Leal [employer] Specimen Processing Direct Inoculation [facility] Comment on above: Performed By: #### A FB ####[facility] Huxmegbdav3972[address] [place], [place] [address]Dr. Farhat Leal ACID FAST SMEAR AND CXon Acid Fast Culture Negative Normal [facility] Comment on above: Result Comment: No a abdiel fast bacilli isolated after 6 weeks. Performed By: #### A FB ####[facility] Aztxtrqfow1313[address] [place], [place] [address]Dr. Farhat Leal Acid Fast Smear Negative Normal [facility] Comment on above: Performed By: #### A FB ####[facility] Sklirraztm280[address] [place], [place] [address]Dr. Farhat Leal [employer] Specimen Processing Tissue Grinding [facility] Comment on above: Performed By: #### A FB ####[facility] Rbuaudwevv8[address] [place], [place] [address]Dr. Farhat Leal FUNGAL CULTUREon 01-02-2022 Fungus (Mycology) Culture Final report Normal [facility] Comment on above: Performed By: #### C XFUN ####[facility] Osfoydqwkg4544[address] [place], [place] [address]Dr. Farhat Leal Fungus Stain Final report Normal [facility] Comment on above: Performed By: #### C XFUN ####[facility] Dccupzjqdo8926[address] [place], [place] [address]Dr. Farhat Leal Result 1 Comment Normal [facility] Comment on above: Result Comment: ANNI/ Calcofluor preparation: no fungus observed. Performed By: #### C XFUN ####[facility] [address]qx[address] [place] [address]. Farhat Leal Result Comment: No y east or mold isolated after 4 weeks. FK506 (TACROLIMUS) WHOLE BLO ODon 12-31-2021 Tacrolimus (FK506), Blood 7.7 ng/mL Normal 2.0-20.0 [facility] Comment on above: Result Comment: Trou gh (immediately following transplant) 15.0 . Trough (steady state, 2 weeks or more after transplant): 3.0 - 8.0 . Performed by LC-MS/MS technology. Performed By: #### F K506T ####[facility] [address]qasru[address] [place] [address]. Farhat Leal HEMOGRAM AND PLATELon 2021 Hematocrit (Bld) [Volume fraction] 27.1 % Critically low 42.0-54.0 [facility] Comment on above: Performed By: #### H H ####[facility] Howuf[address]lc[address] [place] [address]. Farhat Leal Hemoglobin (Bld) [Mass/Vol] 8.7 g/dL Critically low 14.0-18.0 [facility] Comment on above: Performed By: #### H H ####[facility] [address]rs[address]se[address] [place] [address]. Farhat Leal MCH (RBC) [Entitic mass] 30.3 pg Normal 25.9-34.0 [facility] Comment on above: Performed By: #### H H ####[facility] Z[address] [place] [address]. Farhat Leal MCHC (RBC) [Mass/Vol] 32.1 g/dL Normal 29.9-35.2 [facility] Comment on above: Performed By: #### H H ####[facility] Usjaefnjro0[address] [place] [address]. Farhat Leal MCV (RBC) [Entitic vol] 94.4 fL Critically high 80.0-94.0 [facility] Comment on above: Performed By: #### H H ####[facility] Tihajxvvpn0673 [place] [phone]. Farhat Leal PLT 355 103/ul Normal 150-450 [facility] Comment on above: Performed By: #### H H ####[facility] Przrploxaa7751 [place] [address]Dr. Farhat Leal RBC 2.87 106/ul Critically low 4.70-6.10 [facility] Comment on above: Performed By: #### H H ####[facility] Znswsxlcbd5927 [place] [address]Dr. Farhat Leal WBC 6.0 103/ul Normal 4.0-11.0 [facility] Comment on above: Performed By: #### H H ####[facility] Bbmusiingk7189 [place] [address]Dr. Farhat Leal PHOSPHORUSon 12-29-2021 Phosphate [Mass/Vol] 2.5 mg/dL Critically low 2.6-4.7 [facility] Comment on above: Performed By: #### P HOS, CMP ####[facility] Apnnjxkios359[address] [place], [place] [address]Dr. Farhat Elvis PROF 14(COMP METB)on 022 Albumin [Mass/Vol] 1.7 g/dL Critically low 3.4-5.0 [facility] Comment on above: Performed By: #### P HOS, CMP ####[facility] Aivuvaqprz82[address] [place] [address]Dr. Farhat Leal Albumin/Globulin [Mass ratio] 0.5 {ratio} Normal [facility] Comment on above: Performed By: #### P HOS, CMP ####[facility] Imthkbreof1780 [place] [address]Dr. Farhat Leal ALP [Catalytic activity/Vol] 78 U/L Normal 46-116 [facility] Comment on above: Performed By: #### P HOS, CMP ####[facility] Gejjrpjkjn6005 [place] [address]Dr. Farhat Elvis ALT [Catalytic activity/Vol] 12 U/L Critically low 16-63 [facility] Comment on above: Performed By: #### P HOS, CMP ####[facility] Jpvntdcwjq6947 [place] [phone]. Farhat Leal Anion gap [Moles/Vol] 5.1 mmol/L Normal [facility] Comment on above: Performed By: #### P HOS, CMP ####[facility] Iopkzohgtu3341 [place] [address]Dr. Farhat Leal AST [Catalytic activity/Vol] 22 U/L Normal 15-37 [facility] Comment on above: Performed By: #### P HOS, CMP ####[facility] Qgfuygcjco17[address] [place], [place] [address]Dr. Farhat Leal Bilirubin [Mass/Vol] 0.6 mg/dL Normal 0.2-1.0 [facility] Comment on above: Performed By: #### P HOS, CMP ####[facility] Saodtovmeo60[address] [place], [place] [address]Dr. Farhat Leal Calcium [Mass/Vol] 8.1 mg/dL Critically low 8.5-10.1 Th [facility] Comment on above: Performed By: #### P HOS, CMP ####[facility] Pyzcagpeza5[address] [place], [place] [address]Dr. Farhat Leal Chloride [Moles/Vol] 100 mmol/L Normal 98-107 [facility] Comment on above: Performed By: #### P HOS, CMP ####[facility] Pjyrptzquz655[address] [place], [place] [address]Dr. Farhat Leal CO2 [Moles/Vol] 34.2 mmol/L Critically high 21.0-32.0 [facility] Comment on above: Performed By: #### P HOS, CMP ####[facility] Zpxajplokw[address] [place], [place] [id number]. Farhat Leal Creatinine [Mass/Vol] 0.92 mg/dL Normal 0.70-1.30 [facility] Comment on above: Performed By: #### P HOS, CMP ####[facility] Memwcyscsu90[address] [place], [place] [id number]. Farhat Leal EGFR-AF MALDIVIAN >60 Normal >=60 [facility] Comment on above: Performed By: #### P HOS, CMP ####[facility] Popjeaommy6966 [place] [phone]. Farhat Leal EGFR-NON AF MALDIVIAN >60 Normal >=60 [facility] Comment on above: Performed By: #### P HOS, CMP ####[facility] Yodhpapptw0326 [place] [phone]. Farhat Leal Globulin (S) [Mass/Vol] 3.3 g/dL Normal [facility] Comment on above: Performed By: #### P HOS, CMP ####[facility] Khbdrnpgtw3016 [place] [address]Dr. Farhat Leal Glucose [Mass/Vol] 116 mg/dL Critically high 74-106 [facility] Comment on above: Performed By: #### P HOS, CMP ####[facility] Nktkxhndix5063 [place] [address]Dr. Farhat Leal Potassium [Moles/Vol] 3.3 mmol/L Critically low 3.5-5.1 [facility] Comment on above: Performed By: #### P HOS, CMP ####[facility] Kxpwayedlw84[address] [place], [place] [address]Dr. Farhat Leal Protein [Mass/Vol] 5.0 g/dL Critically low 6.4-8.2 Th [facility] Comment on above: Performed By: #### P HOS, CMP ####[facility] Kpmazsyfua32[address] [place], [place] [address]Dr. Farhat Leal Sodium [Moles/Vol] 136 mmol/L Normal 136-145 [facility] Comment on above: Performed By: #### P HOS, CMP ####[facility] Llrlwpbfpa5273 [place] [address]Dr. Farhat Leal Urea nitrogen [Mass/Vol] 14.0 mg/dL Normal 7.0-18.0 [facility] Comment on above: Performed By: #### P HOS, CMP ####[facility] Bghpmskxvb9511 [place] [phone]. Farhat Leal Urea nitrogen/Creatinine [Mass ratio] 15.2 mg/mg Normal [facility] Comment on above: Performed By: #### P HOS, CMP ####[facility] Pvouzryfsb58[address] [place], [place] [address]Dr. Farhat Leal PROTIMEon 12-29-2021 INR Coag (PPP) [Relative time] 1.26 {INR} Normal [facility] Comment on above: Performed By: #### P T ####[facility] Zkxjlzhyrs5664[address] [place], [place] [address]Dr. Farhat Leal INR GUIDELINES SEE BELOW Normal [facility] Comment on above: Result Comment: MALINA RED INR: 2.0 - 3.0 CONDITIONS NOT LISTED BELOW 2.5 - 3.5 FOR PROSTHETIC HEART VALVE REPLACEMENT 2.5 - 3.5 RECURRENT THROMBOSIS Performed By: #### P T ####[facility] Odibcltuxc24[address] [place], [place] [address]Dr. Farhat Leal PT Coag (PPP) [Time] 13.4 s Critically high 9.0-11.6 [facility] Comment on above: Performed By: #### P T ####[facility] B[address]wldwjmxp9[address] [place], [place] [address]Dr. Farhat Leal XR MODIFIED BARIUM SWALLOWon 12-25-2021 XR MODIFIED BARIUM SWALLOW Normal [facility] FUNGAL CULTUREon 12-24-2021 Fungus (Mycology) Culture Final report Normal [facility] Comment on above: Performed By: #### C XFUN ####[facility] Wxfxxripls2005[address] [place], [place] [address]Dr. Farhat Leal Fungus Stain Final report Normal [facility] Comment on above: Performed By: #### C XFUN ####[facility] Fhiiogzctx38[address] [place], [place] [address]Dr. Farhat Leal Result 1 Comment Normal [facility] Comment on above: Result Comment: ANNI/ Calcofluor preparation: no fungus observed. Performed By: #### C XFUN ####[facility] Ebbryhirrz7654[address] [place], [place] [address]DrSkylar Leal Result Comment: No y east or mold isolated after 4 weeks. VANCOMYCIN TROUGHon 12-21-19 VANCOMYCIN TROUGH 14.4 ug/ml Normal 5.0-20.0 The [facility] Comment on above: Performed By: #### V ANCT ####[facility] Egxazdkxpi4780 [place] [address]Dr. Farhat Leal CBC AUTO DIFFon 12-14-2021 BASO # 0.0 103/ul Normal 0.0-0.1 [facility] Comment on above: Performed By: #### C BC ####[facility] Dmhyavweui60[address] [place], [place] [address]Dr. Farhat Elvis Basophils/100 WBC (Bld) 0.2 % Normal 0.2-2.0 [facility] Comment on above: Performed By: #### C BC ####[facility] Plwjjgtnfy9546[address] [place], [place] [address]Dr. Farhat Leal EO # 0.2 103/ul Normal 0.0-0.7 [facility] Comment on above: Performed By: #### C BC ####[facility] Yncjuobkxb27[address] [place], [place] [address]Dr. Farhat Elvis Eosinophils/100 WBC (Bld) 2.1 % Normal 0.9-7.0 [facility] Comment on above: Performed By: #### C BC ####[facility] Qzmgzmwujm445[address] [place], [place] [address]Dr. Farhat Leal Erythrocyte distribution width (RBC) [Ratio] 18.2 % Critically high 11.0-15.0 [facility] Comment on above: Performed By: #### C BC ####[facility] Yomzdqhlne5389[address] [place], [place] [address]Dr. Farhat Leal Hematocrit (Bld) [Volume fraction] 25.8 % Critically low 42.0-54.0 [facility] Comment on above: Performed By: #### C BC ####[facility] Xjxtcmtccd5[address] [place], [place] [address]Dr. Farhat Leal Hemoglobin (Bld) [Mass/Vol] 8.0 g/dL Critically low 14.0-18.0 [facility] Comment on above: Performed By: #### C BC ####[facility] Ssinvlppkl1236 [place] [phone]. Farhat Leal IG # 0.08 10e3/ul Critically high 0.00-0.03 The [facility] Comment on above: Performed By: #### C BC ####[facility] Fhhmlbgjys1907 [place] [address]Dr. Farhat Leal IG % 0.7 % Critically high 0.0-0.5 The [facility] Comment on above: Performed By: #### C BC ####[facility] Oehinpasbu2724 [place] [address]Dr. Farhat Elvis LYMPH # 0.9 103/ul Critically low 1.2-3.8 The [facility] Comment on above: Performed By: #### C BC ####[facility] Lzzayxnhbp1662 [place] [address]Dr. Farhat Elvis Lymphocytes/100 WBC (Bld) 8.7 % Critically low 20.5-60.0 [facility] Comment on above: Performed By: #### C BC ####[facility] Wleupslqsd6957 [place] [address]Dr. Farhat Lael MANUAL DIFF REQ NO Normal [facility] Comment on above: Performed By: #### C BC ####[facility] Tnqvgwqmfz1169 [place] [address]Dr. Farhat Leal MCH (RBC) [Entitic mass] 30.0 pg Normal 25.9-34.0 [facility] Comment on above: Performed By: #### C BC ####[facility] Glssmiasxv61[address] [place], [place] [address]Dr. Farhat Leal MCHC (RBC) [Mass/Vol] 31.0 g/dL Normal 29.9-35.2 [facility] Comment on above: Performed By: #### C BC ####[facility] Sylzptznjx26[address] [place], [place] [address]DrSkylar Farhat Leal MCV (RBC) [Entitic vol] 96.6 fL Critically high 80.0-94.0 [facility] Comment on above: Performed By: #### C BC ####[facility] Bdujhgweda8756 [place] [phone]. Farhat Leal MONO # 0.7 103/ul Normal 0.3-0.8 [facility] Comment on above: Performed By: #### C BC ####[facility] Xdmxvvqdmo6978 [place] [address]Dr. Farhat Leal Monocytes/100 WBC (Bld) 6.7 % Normal 1.7-12.0 [facility] Comment on above: Performed By: #### C BC ####[facility] Lahspghtlb1317[address] [place], [place] [address]Dr. Farhat Leal NEUT # 8.8 103/ul Critically high 1.4-6.5 The [facility] Comment on above: Performed By: #### C BC ####[facility] Dfghyovdnc1355[address] [place], [place] [address]Dr. Farhat Leal Neutrophils/100 WBC (Bld) 81.6 % Critically high 43.0-75.0 [facility] Comment on above: Performed By: #### C BC ####[facility] Egfwokugab2022[address] [place], [place] [address]Dr. Farhat Leal Platelet mean volume (Bld) [Entitic vol] 10.5 fL Normal 9.5-13.5 [facility] Comment on above: Performed By: #### C BC ####[facility] Ikcsrwxbgw4159[address] [place], [place] [address]Dr. Farhat Leal PLT 285 103/ul Normal 150-450 [facility] Comment on above: Performed By: #### C BC ####[facility] Azohnxwrvm587[address] [place], [place] [address]Dr. Farhat Leal RBC 2.67 106/ul Critically low 4.70-6.10 The [facility] Comment on above: Performed By: #### C BC ####[facility] Nhsbjgjlte322[address] [place], [place] [address]Dr. Farhat Leal WBC 10.7 103/ul Normal 4.0-11.0 [facility] Comment on above: Performed By: #### C BC ####[facility] Tweqlrkslu85[address] [place], [place] [address]Dr. Farhat Leal PROF CHEM 8 (BAS METB)on Anion gap [Moles/Vol] 12.4 mmol/L Normal [facility] Comment on above: Performed By: #### B MP ####[facility] Kpvbdjzifu4884 [place] [address]Dr. Madelynlorri Elvis Calcium [Mass/Vol] 7.8 mg/dL Critically low 8.5-10.1 [facility] Comment on above: Performed By: #### B MP ####[facility] Hesgwkuhwz5952 [place] [address]Dr. Farhat Leal Chloride [Moles/Vol] 102 mmol/L Normal 98-107 [facility] Comment on above: Performed By: #### B MP ####[facility] Lgtsodfzol8944 [place] [address]Dr. Farhat Leal CO2 [Moles/Vol] 28.1 mmol/L Normal 21.0-32.0 [facility] Comment on above: Performed By: #### B MP ####[facility] Pvecvujwsl[address] [place], [place] [address]Dr. Farhat Leal Creatinine [Mass/Vol] 1.24 mg/dL Normal 0.70-1.30 [facility] Comment on above: Performed By: #### B MP ####[facility] Zlsqylgltc[address] [place], [place] [address]Dr. Farhat Leal EGFR-AF MALDIVIAN >60 Normal >=60 [facility] Comment on above: Performed By: #### B MP ####[facility] Egznnzpuyn3484 [place] [address]Dr. Farhat Leal EGFR-NON AF MALDIVIAN 57 mL/min/1.73m2 Critically low >=60 [facility] Comment on above: Performed By: #### B MP ####[facility] Ycfiyisptg8[address] [place], [place] [address]Dr. Farhat Leal Glucose [Mass/Vol] 296 mg/dL Critically high 74-106 [facility] Comment on above: Performed By: #### B MP ####[facility] Ozgryafhnt[address] [place], [place] [address]Dr. Farhat Leal Potassium [Moles/Vol] 3.5 mmol/L Normal 3.5-5.1 [facility] Comment on above: Performed By: #### B MP ####[facility] Ijqlhkxkjw0368 [place] [address]Dr. Farhat Leal Sodium [Moles/Vol] 139 mmol/L Normal 136-[address] [facility] Comment on above: Performed By: #### B MP ####[facility] Ghdwargqii[address] [place] [address]Dr. Farhat Leal Urea nitrogen [Mass/Vol] 27.0 mg/dL Critically high 7.0-18.0 [facility] Comment on above: Performed By: #### B MP ####[facility] Mtqwqarcvh[address] [place], [place] [address]Dr. Farhat Leal Urea nitrogen/Creatinine [Mass ratio] 21.8 mg/mg Normal [facility] Comment on above: Performed By: #### B MP ####[facility] [address]xabmvhqh9[address] [place], [place] [address]Dr. Farhat Leal PROTIMEon 12-14-2021 INR Coag (PPP) [Relative time] 3.36 {INR} Normal [facility] Comment on above: Performed By: #### P T ####[facility] Z[address]iryfnboa[address] [place], [place] [address]Dr. Farhat Leal INR GUIDELINES SEE BELOW Normal [facility] Comment on above: Result Comment: MALINA RED INR: 2.0 - 3.0 CONDITIONS NOT LISTED BELOW 2.5 - 3.5 FOR PROSTHETIC HEART VALVE REPLACEMENT 2.5 - 3.5 RECURRENT THROMBOSIS Performed By: #### P T ####[facility] Ctoknboebz[address] [place], [place] [address]Dr. Farhat Leal PT Coag (PPP) [Time] 33.5 s Critically high 9.0-11.6 [facility] Comment on above: Performed By: #### P T ####[facility] Nerxazbfvh37[address] [place], [place] [address]Dr. Farhat Leal XR CHEST 1 Von 12-14-2021 XR CHEST 1 V Normal [facility] No Panel Informationon 12-01 BLANK _ [facility] Implant Date 04/22/[address] [facility] PACEMAKER CLINIC CHECKon AMS Duration (ms) 5 of 8 [facility] AMS Fallback Rate (bpm) DDIR [facility] AV Delay Adaptive Paced Minimum (ms) [address] [facility] AV Delay Adaptive Rate Maximum (bpm) 130 {beats}/min [facility] AV Delay Adaptive Rate Minimum (bpm) 70 {beats}/min [facility] AV Delay Adaptive Sensed Minimum (ms) [address] [facility] AV Delay Paced (ms) 300 ms [facility] AV Delay Sensed (ms) 300 ms [facility] Jaciel LV Pacing Polarity Unknown [facility] Jaciel LV Sensing Polarity Unknown [facility] Jaciel RA Pacing Amplitude (volts) 2.[address] [facility] Jaciel RA Pacing Polarity BI [facility] Jaciel RA Pacing Pulse Width (ms) 0.[address] [facility] Jaciel RA Sensing Amplitude (mvolts) AUTO [facility] Jaciel RA Sensing Blanking Period (ms) [address] [facility] Jaciel RA Sensing Polarity BI [facility] Jaciel RA Sensing Refractory Period (ms) AUTO [facility] Jaciel RV Pacing Amplitude (volts) 3.[address] [facility] Jaciel RV Pacing Polarity BI [facility] Jaciel RV Pacing Pulse Width (ms) 0.[address] [facility] Jaciel RV Sensing Amplitude (mvolts) AUTO [facility] Jaciel RV Sensing Blanking Period (ms) [address] [facility] Jaciel RV Sensing Polarity BI [facility] Jaciel RV Sensing Refractory Period (ms) [address] [facility] Hysteresis Rate (bpm) 60 {beats}/min [facility] Lead1 Mfg SUZETTE [facility] Lead2 Mfg SUZETTE [facility] Location RA [facility] Location RV [facility] Lower Rate (bpm) 60 {beats}/min [facility] Max Sensor Rate (bmp) 130 {beats}/min [facility] Model 808793 Monika Dominguez [facility] Model 184305 [facility] Model 712290 [facility] Pacemaker Dependent? NO [facility] PM-Device Mfg BIO [facility] PM-PMT Intervention ON [facility] PM-PVC Intervention ON [facility] PM-Rate Modulation Acceleration Reaction [address] [facility] PM-Rate Modulation Deceleration 0.[address] [facility] PM-Rate Modulation [place] [address] [facility] PM-Rate Modulation Threshold Medium [facility] RA Bipolar Impedance ohms [address] [facility] Rhythm AF with controlled ventricular rate. [facility] RV Bipolar Impedance ohms [address] [facility] Serial Number [id number] [facility] Serial Number [id number] [facility] Serial Number [id number] [facility] Thresh RA Sensing Amplitude (mvolts) 2.[address] [facility] Thresh RV Capture Amplitude (volts) 1.[address] [facility] Thresh RV Capture Duration (ms) 0.[address] [facility] Thresh RV Sensing Amplitude (mvolts) 2.[address] [facility] Tracking Rate (bpm) 160 {beats}/min [facility] BNPon 11-28-2021 Natriuretic peptide B (Bld) [Mass/Vol] 87691.0 pg/mL Critically high <=1,800.0 [facility] Comment on above: Performed By: #### C MP, BNP, CRP ####[facility] [address]qew[address] [place], [place] [address]Dr. Farhat Leal CBC AUTO DIFFon 11-28-2021 BASO # 0.0 103/ul Normal 0.0-0.1 [facility] Comment on above: Performed By: #### C BC ####[facility] Ggvsbtiqca[address] [place], [place] [address]Dr. Farhat Leal Basophils/100 WBC (Bld) 0.3 % Normal 0.2-2.0 [facility] Comment on above: Performed By: #### C BC ####[facility] Cekbraixly5923[address] [place], [place] [address]Dr. Farhat Leal EO # 0.1 103/ul Normal 0.0-0.7 [facility] Comment on above: Performed By: #### C BC ####[facility] Mmxiisfuue5784[address] [place], [place] [address]Dr. Farhat Leal Eosinophils/100 WBC (Bld) 1.0 % Normal 0.9-7.0 [facility] Comment on above: Performed By: #### C BC ####[facility] Gwldugcnko[address] [place], [place] [address]DrSkylar Leal Erythrocyte distribution width (RBC) [Ratio] 14.0 % Normal 11.0-15.0 [facility] Comment on above: Performed By: #### C BC ####[facility] R[address]kisxdbc13[address] [place] [address]DrSkylar Leal Hematocrit (Bld) [Volume fraction] 27.6 % Critically low 42.0-54.0 [facility] Comment on above: Performed By: #### C BC ####[facility] Xnylwplouw400[address] [place], [place] [address]DrSkylar Leal Hemoglobin (Bld) [Mass/Vol] 9.0 g/dL Critically low 14.0-18.0 [facility] Comment on above: Performed By: #### C BC ####[facility] Vxwazgdsxf33[address] [place], [place] [address]DrSkylar Leal IG # 0.12 10e3/ul Critically high 0.00-0.03 [facility] Comment on above: Performed By: #### C BC ####[facility] Fuhocnpovz1559[address] [place], [place] [address]DrSkylar Leal IG % 1.0 % Critically high 0.0-0.5 [facility] Comment on above: Performed By: #### C BC ####[facility] Onxueanqzh834[address] [place], [place] [address]DrSkylar Leal LYMPH # 1.2 103/ul Normal 1.2-3.8 [facility] Comment on above: Performed By: #### C BC ####[facility] Tvnetxflpi8579[address] [place], [place] [address]DrSkylar Leal Lymphocytes/100 WBC (Bld) 9.9 % Critically low 20.5-60.0 [facility] Comment on above: Performed By: #### C BC ####[facility] Xhgupteswi760[address] [place], [place] [address]DrSkylar Leal MANUAL DIFF REQ NO Normal [facility] Comment on above: Performed By: #### C BC ####[facility] Sulcwnogji2086[address] [place], [place] [address]DrSkylar Leal MCH (RBC) [Entitic mass] 30.0 pg Normal 25.9-34.0 [facility] Comment on above: Performed By: #### C BC ####[facility] W[address]zcpye24[address] [place] [address]Dr. Farhat Leal MCHC (RBC) [Mass/Vol] 32.6 g/dL Normal 29.9-35.2 [facility] Comment on above: Performed By: #### C BC ####[facility] Obpecjbmug7363[address] [place], [place] [address]Dr. Farhat Leal MCV (RBC) [Entitic vol] 92.0 fL Normal 80.0-94.0 [facility] Comment on above: Performed By: #### C BC ####[facility] Oaulqjluys8044[address] [place], [place] [address]DrSkylar Leal MONO # 1.1 103/ul Critically high 0.3-0.8 [facility] Comment on above: Performed By: #### C BC ####[facility] Pbjirbwzkt1179[address] [place], [place] [address]Dr. Farhat Leal Monocytes/100 WBC (Bld) 9.3 % Normal 1.7-12.0 [facility] Comment on above: Performed By: #### C BC ####[facility] Buemtdsiib870[address] [place], [place] [address]DrSkylar Leal NEUT # 9.3 103/ul Critically high 1.4-6.5 [facility] Comment on above: Performed By: #### C BC ####[facility] Irpmifayyd6134[address] [place], [place] [address]Dr. Farhat Leal Neutrophils/100 WBC (Bld) 78.5 % Critically high 43.0-75.0 [facility] Comment on above: Performed By: #### C BC ####[facility] Ywiqwtsoyq3314[address] [place], [place] [address]DrSkylar Leal Platelet mean volume (Bld) [Entitic vol] 9.6 fL Normal 9.5-13.5 [facility] Comment on above: Performed By: #### C BC ####[facility] Dqzwwcisut[address] [place], [place] [id number]. Farhat Leal PLT 357 103/ul Normal 150-450 [facility] Comment on above: Performed By: #### C BC ####[facility] [address]px[address] [place] [phone]. Farhat Leal RBC 3.00 106/ul Critically low 4.70-6.10 [facility] Comment on above: Performed By: #### C BC ####[facility] Y[address]vrmshkkj4[address] [place] [phone]. Farhat Leal WBC 11.8 103/ul Critically high 4.0-11.0 [facility] Comment on above: Performed By: #### C BC ####[facility] Vtnhlyxiuy4147 [place] [address]Dr. Farhat Leal CRPon 11-28-2021 CRP 20.9 mg/dL Critically high <=1.0 [facility] Comment on above: Performed By: #### C MP, BNP, CRP ####[facility] Vrzkzbkhcu58[address] [place] [address]Dr. Farhat Leal CULTURE OTHERon 11-28-2021 CULTURE OTHER Normal [facility] Comment on above: Performed By: #### O THCX ####[facility] Vxsrhktemo[address] [place], [place] [address]Dr. Farhat Leal CULTURE OTHER Normal [facility] Comment on above: Performed By: #### O THCX ####[facility] Rhbocysvii4124[address] [place], [place] [address]Dr. Farhat Elvis PROF 14(COMP METB)on 022 Albumin [Mass/Vol] 1.4 g/dL Critically low 3.4-5.0 [facility] Comment on above: Performed By: #### C MP, BNP, CRP ####[facility] Souqlblgnf4036 [place] [address]Dr. Farhat Leal Albumin/Globulin [Mass ratio] 0.4 {ratio} Normal [facility] Comment on above: Performed By: #### C MP, BNP, CRP ####[facility] Bznlorvjus3132 [place] [address]Dr. Farhat Leal ALP [Catalytic activity/Vol] 82 U/L Normal 46-116 [facility] Comment on above: Performed By: #### C MP, BNP, CRP ####[facility] Fvgaazefyo9204 [place] [address]Dr. Farhat Leal ALT [Catalytic activity/Vol] 20 U/L Normal 16-63 [facility] Comment on above: Performed By: #### C MP, BNP, CRP ####[facility] Gqwxzrjsyh0305 [place] [address]Dr. Farhat Leal Anion gap [Moles/Vol] 13.0 mmol/L Normal [facility] Comment on above: Performed By: #### C MP, BNP, CRP ####[facility] Qkmqyxldhw0048 [place] [address]Dr. Farhat Leal AST [Catalytic activity/Vol] 33 U/L Normal 15-37 [facility] Comment on above: Performed By: #### C MP, BNP, CRP ####[facility] Dlumazumaa1862 [place] [address]Dr. Farhat Leal Bilirubin [Mass/Vol] 0.7 mg/dL Normal 0.2-1.0 [facility] Comment on above: Performed By: #### C MP, BNP, CRP ####[facility] Xttqmumaws1027 [place] [address]Dr. Farhat Leal Calcium [Mass/Vol] 8.4 mg/dL Critically low 8.5-10.1 [facility] Comment on above: Performed By: #### C MP, BNP, CRP ####[facility] Nqkbllgson9121 [place] [address]Dr. Farhat Leal Chloride [Moles/Vol] 100 mmol/L Normal 98-107 [facility] Comment on above: Performed By: #### C MP, BNP, CRP ####[facility] Oasrzxvpnw0982 [place] [address]Dr. Farhat Leal CO2 [Moles/Vol] 23.7 mmol/L Normal 21.0-32.0 [facility] Comment on above: Performed By: #### C MP, BNP, CRP ####[facility] Bnxhcwuepx8702 [place] [address]Dr. Farhat Elvis Creatinine [Mass/Vol] 1.70 mg/dL Critically high 0.70-1.30 [facility] Comment on above: Performed By: #### C MP, BNP, CRP ####[facility] Mnnwjsvyzj35[address] [place], [place] [address]Dr. Farhat Elvis EGFR-AF MALDIVIAN 48 mL/min/1.73m2 Critically low >=60 [facility] Comment on above: Performed By: #### C MP, BNP, CRP ####[facility] Xjtdkjubmx8758[address] [place], [place] [address]Dr. Madelynlorri Elvis EGFR-NON AF MALDIVIAN 39 mL/min/1.73m2 Critically low >=60 [facility] Comment on above: Performed By: #### C MP, BNP, CRP ####[facility] Rwsbthztqm1835[address] [place], [place] [address]Dr. Farhat Leal Globulin (S) [Mass/Vol] 3.6 g/dL Normal [facility] Comment on above: Performed By: #### C MP, BNP, CRP ####[facility] Pojzjcdppw028[address] [place], [place] [address]Dr. Farhat Leal Glucose [Mass/Vol] 232 mg/dL Critically high 74-106 [facility] Comment on above: Performed By: #### C MP, BNP, CRP ####[facility] Pakedtvdev0739[address] [place], [place] [address]Dr. Farhat Leal Potassium [Moles/Vol] 3.7 mmol/L Normal 3.5-5.1 [facility] Comment on above: Performed By: #### C MP, BNP, CRP ####[facility] Etktbywgfh52[address] [place], [place] [address]Dr. Farhat Leal Protein [Mass/Vol] 5.0 g/dL Critically low 6.4-8.2 Th [facility] Comment on above: Performed By: #### C MP, BNP, CRP ####[facility] Ghhtrcesjp239[address] [place], [place] [address]Dr. Farhat Leal Sodium [Moles/Vol] 133 mmol/L Critically low 136-145 Th [facility] Comment on above: Performed By: #### C MP, BNP, CRP ####[facility] Rmmrnmzeod9498 [place] [phone]. Farhat Leal Urea nitrogen [Mass/Vol] 52.0 mg/dL Critically high 7.0-18.0 [facility] Comment on above: Performed By: #### C MP, BNP, CRP ####[facility] Roeqqxzulj3074 [place] [address]Dr. Farhat Leal Urea nitrogen/Creatinine [Mass ratio] 30.6 mg/mg Normal [facility] Comment on above: Performed By: #### C MP, BNP, CRP ####[facility] Wcbepwsxij7021 [place] [address]Dr. Farhat Leal PROTIMEon 11-28-2021 INR Coag (PPP) [Relative time] 1.29 {INR} Normal [facility] Comment on above: Performed By: #### P T ####[facility] Izfcpsxwnt35[address] [place], [place] [address]Dr. Farhat Leal INR GUIDELINES SEE BELOW Normal [facility] Comment on above: Result Comment: MALINA RED INR: 2.0 - 3.0 CONDITIONS NOT LISTED BELOW 2.5 - 3.5 FOR PROSTHETIC HEART VALVE REPLACEMENT 2.5 - 3.5 RECURRENT THROMBOSIS Performed By: #### P T ####[facility] Upqcybedih8182[address] [place], [place] [address]Dr. Farhat Leal PT Coag (PPP) [Time] 13.7 s Critically high 9.0-11.6 [facility] Comment on above: Performed By: #### P T ####[facility] Nmldvmssit8584 [place] [address]DrSkylar Leal [facility] 77 mm/hr Critically high <=20 [facility] Comment on above: Performed By: #### S EDR ####[facility] Jjzuzuoujn65[address] [place], [place] [address]DrSkylar Leal XR CHEST 2 Von 11-28-2021 XR CHEST 2 V Normal [facility] BNPon 11-27-2021 Natriuretic peptide B (Bld) [Mass/Vol] 40872.0 pg/mL Critically high <=1,800.0 [facility] Comment on above: Performed By: #### B WIND [employer]UR[employer] ELECTRICAL ENGINEER, CMP, CRP ####[facility] Dvyadvcyca2685 [place] [address]Dr. Farhat Leal CBC AUTO DIFFon 11-27-2021 BASO # 0.0 103/ul Normal 0.0-0.1 [facility] Comment on above: Performed By: #### C BC ####[facility] Boslojdfyo2183[address] [place], [place] [address]Dr. Farhat Leal Basophils/100 WBC (Bld) 0.2 % Normal 0.2-2.0 [facility] Comment on above: Performed By: #### C BC ####[facility] Zhoxrsclln9834[address] [place], [place] [address]Dr. Farhat Leal EO # 0.2 103/ul Normal 0.0-0.7 [facility] Comment on above: Performed By: #### C BC ####[facility] Seoklffylu1242[address] [place], [place] [address]Dr. Farhat Leal Eosinophils/100 WBC (Bld) 1.9 % Normal 0.9-7.0 [facility] Comment on above: Performed By: #### C BC ####[facility] Hqcfgizjmk9613[address] [place], [place] [address]Dr. Farhat Leal Erythrocyte distribution width (RBC) [Ratio] 13.9 % Normal 11.0-15.0 [facility] Comment on above: Performed By: #### C BC ####[facility] Vhislddony3225[address] [place], [place] [address]Dr. Farhat Leal Hematocrit (Bld) [Volume fraction] 28.7 % Critically low 42.0-54.0 [facility] Comment on above: Performed By: #### C BC ####[facility] Iyohtviobi[address] [place], [place] [address]Dr. Farhat Leal Hemoglobin (Bld) [Mass/Vol] 9.3 g/dL Critically low 14.0-18.0 [facility] Comment on above: Performed By: #### C BC ####[facility] Zzkrotvsdi6046 [place] [address]Dr. Farhat Leal IG # 0.14 10e3/ul Critically high 0.00-0.03 [facility] Comment on above: Performed By: #### C BC ####[facility] Hbyqfidqcq9511 [place] [address]Dr. Farhat Leal IG % 1.2 % Critically high 0.0-0.5 [facility] Comment on above: Performed By: #### C BC ####[facility] Ppqkobvkyz1205 [place] [address]DrSkylar Leal LYMPH # 1.1 103/ul Critically low 1.2-3.8 [facility] Comment on above: Performed By: #### C BC ####[facility] Uhleuxuice8465 [place] [address]DrSkylar Leal Lymphocytes/100 WBC (Bld) 9.4 % Critically low 20.5-60.0 [facility] Comment on above: Performed By: #### C BC ####[facility] Rsfndpxidi6149 [place] [address]DrSkylar Leal MANUAL DIFF REQ NO Normal [facility] Comment on above: Performed By: #### C BC ####[facility] Zvgvdqrvhs5354 [place] [address]DrSkylar Leal MCH (RBC) [Entitic mass] 29.7 pg Normal 25.9-34.0 [facility] Comment on above: Performed By: #### C BC ####[facility] Dlonmffcjh1054 [place] [phone] Leal MCHC (RBC) [Mass/Vol] 32.4 g/dL Normal 29.9-35.2 [facility] Comment on above: Performed By: #### C BC ####[facility] Kautcaslan6796 [place] [phone] Leal MCV (RBC) [Entitic vol] 91.7 fL Normal 80.0-94.0 [facility] Comment on above: Performed By: #### C BC ####[facility] Cuhbsnuvfh4241 [place] [address]DrSkylar Farhat Elvis MONO # 1.1 103/ul Critically high 0.3-0.8 [facility] Comment on above: Performed By: #### C BC ####[facility] Qrbnpjwvvo1757 [place] [address]Dr. Farhat Leal Monocytes/100 WBC (Bld) 9.7 % Normal 1.7-12.0 [facility] Comment on above: Performed By: #### C BC ####[facility] Mixsoeeqnm0720 [place] [address]Dr. Madelynlorri Elvis NEUT # 9.2 103/ul Critically high 1.4-6.5 [facility] Comment on above: Performed By: #### C BC ####[facility] Zwrkskeltf5[address] [place], [place] [address]Dr. Farhat Leal Neutrophils/100 WBC (Bld) 77.6 % Critically high 43.0-75.0 [facility] Comment on above: Performed By: #### C BC ####[facility] Tapnvsbsyv5024[address] [place], [place] [address]Dr. Madelynlorri Leal Platelet mean volume (Bld) [Entitic vol] 9.5 fL Normal 9.5-13.5 [facility] Comment on above: Performed By: #### C BC ####[facility] Afsddmnziy3320 [place] [address]Dr. Farhat Leal PLT 375 103/ul Normal 150-450 [facility] Comment on above: Performed By: #### C BC ####[facility] Fonxojhttf3582 [place] [phone] Leal RBC 3.13 106/ul Critically low 4.70-6.10 [facility] Comment on above: Performed By: #### C BC ####[facility] Qsoetxagyq0893 [place] [phone] Leal WBC 11.8 103/ul Critically high 4.0-11.0 [facility] Comment on above: Performed By: #### C BC ####[facility] Fvfgpppqpc2808 [place] [address]Dr. Madelynlorri Elvis CRPon 11-27-2021 CRP 24.5 mg/dL Critically high <=1.0 [facility] Comment on above: Performed By: #### B [employer] ELECTRICAL ENGINEER, CMP, CRP ####[facility] Ploeccjddj5769 [place] [address]Dr. Madelynlorri Leal CULTURE OTHERon 11-27-2021 CULTURE OTHER Normal [facility] Comment on above: Performed By: #### O THCX ####[facility] Upwmcmctzo8838 [place] [address]Dr. Farhat Leal CULTURE OTHER Normal [facility] Comment on above: Performed By: #### O THCX ####[facility] Psulhcrscp2593 [place] [address]Dr. Farhat Leal CULTURE WOUNDon 11-27-2021 CULTURE WOUND Normal [facility] Comment on above: Performed By: #### W OUNDCX ####[facility] Lucfnpsquw9188 [place] [address]Dr. Farhat Leal POINT OF CARE GLUCOSEon 11-15 Glucose [Mass/Vol] 147 mg/dL Critically high 74-106 [facility] Comment on above: Performed By: #### P OCGLUC ####[facility] Fireyuolge2524 [place] [address]Dr. Farhat Leal PROF 14(COMP METB)on 022 Albumin [Mass/Vol] 1.4 g/dL Critically low 3.4-5.0 [facility] Comment on above: Performed By: #### B W[employer]UR[employer]INE ELECTRICAL ENGINEER, CMP, CRP ####[facility] Xsbvqkgjuz0278 [place] [address]Dr. Farhat Leal Albumin/Globulin [Mass ratio] 0.4 {ratio} [facility] Comment on above: Performed By: #### B W[employer]URBINE ELECTRICAL ENGINEER, CMP, CRP ####[facility] Flxjoglpfu4307 [place] [address]Dr. Farhat Leal ALP [Catalytic activity/Vol] 82 U/L Normal 46-116 [facility] Comment on above: Performed By: #### B W[employer]URBINE ELECTRICAL ENGINEER, CMP, CRP ####[facility] Qplckkhbxw7656 [place] [address]Dr. Farhat Leal ALT [Catalytic activity/Vol] 22 U/L Normal 16-63 [facility] Comment on above: Performed By: #### B W[employer]URBINE ELECTRICAL ENGINEER, CMP, CRP ####[facility] Npnowmlisu7923 [place] [address]Dr. Farhat Leal Anion gap [Moles/Vol] 14.2 mmol/L Normal [facility] Comment on above: Performed By: #### B WIND [employer]URBINE ELECTRICAL ENGINEER, CMP, CRP ####[facility] Q[address]qbvzhvvn8[address] [place], [place] [address]Dr. Farhta Leal AST [Catalytic activity/Vol] 35 U/L Normal 15-37 [facility] Comment on above: Performed By: #### B WIND [employer]URBINE ELECTRICAL ENGINEER, CMP, CRP ####[facility] Vngujulvtc804[address] [place], [place] [address]Dr. Farhat Leal Bilirubin [Mass/Vol] 0.7 mg/dL Normal 0.2-1.0 [facility] Comment on above: Performed By: #### B WIND [employer]URBINE ELECTRICAL ENGINEER, CMP, CRP ####[facility] Gqvrwzwmvv8474[address] [place], [place] [address]Dr. Farhat Leal Calcium [Mass/Vol] 8.2 mg/dL Critically low 8.5-10.1 [facility] Comment on above: Performed By: #### B WIND TURBINE ELECTRICAL ENGINEER, CMP, CRP ####[facility] Dfwmveuiuq1475 [place] [address]Dr. Farhat Leal Chloride [Moles/Vol] 99 mmol/L Normal 98-107 [facility] Comment on above: Performed By: #### B WIND TURBINE ELECTRICAL ENGINEER, CMP, CRP ####[facility] Xcqteeqeat2703 [place] [address]Dr. Farhat Leal CO2 [Moles/Vol] 22.6 mmol/L Normal 21.0-32.0 [facility] Comment on above: Performed By: #### B WIND TURBINE ELECTRICAL ENGINEER, CMP, CRP ####[facility] Mfagwiipos7947 [place] [address]Dr. Farhat Leal Creatinine [Mass/Vol] 1.73 mg/dL Critically high 0.70-1.30 [facility] Comment on above: Performed By: #### B WIND TURBINE ELECTRICAL ENGINEER, CMP, CRP ####[facility] Cxqpjtpwqh9299 [place] [address]Dr. Farhat Elvis EGFR-AF MALDIVIAN 47 mL/min/1.73m2 Critically low >=60 [facility] Comment on above: Performed By: #### B WIND TURBINE ELECTRICAL ENGINEER, CMP, CRP ####[facility] Rlsfystgys[address] [place], [place] [address]Dr. Madelynlorri Elvis EGFR-NON AF MALDIVIAN 38 mL/min/1.73m2 Critically low >=60 [facility] Comment on above: Performed By: #### B WIND TURBINE ELECTRICAL ENGINEER, CMP, CRP ####[facility] Xiglvgfrcm987[address] [place], [place] [address]Dr. Farhat Leal Globulin (S) [Mass/Vol] 3.7 g/dL Normal [facility] Comment on above: Performed By: #### B WIND TURBINE ELECTRICAL ENGINEER, CMP, CRP ####[facility] Lrnxaplmel[address] [place], [place] [address]Dr. Farhat Leal Glucose [Mass/Vol] 220 mg/dL Critically high 74-106 T [facility] Comment on above: Performed By: #### B WIND TURBINE ELECTRICAL ENGINEER, CMP, CRP ####[facility] Enqqdsimcr44[address] [place], [place] [address]Dr. Madelynlorri Elvis Potassium [Moles/Vol] 3.8 mmol/L Normal 3.5-5.1 [facility] Comment on above: Performed By: #### B WIND TURBINE ELECTRICAL ENGINEER, CMP, CRP ####[facility] Biqwgbmoqh[address] [place], [place] [address]Dr. Madelynlorri Elvis Protein [Mass/Vol] 5.1 g/dL Critically low 6.4-8.2 Th [facility] Comment on above: Performed By: #### B WIND TURBINE ELECTRICAL ENGINEER, CMP, CRP ####[facility] Ymeqyuzscz7[address] [place], [place] [address]Dr. Farhat Leal Sodium [Moles/Vol] 132 mmol/L Critically low 136-145 Th e [facility] Comment on above: Performed By: #### B WIND TURBINE ELECTRICAL ENGINEER, CMP, CRP ####[facility] Femrcdrdfz7[address] [place] [address]Dr. Farhat Leal Urea nitrogen [Mass/Vol] 49.0 mg/dL Critically high 7.0-18.0 [facility] Comment on above: Performed By: #### B WIND TURBINE ELECTRICAL ENGINEER, CMP, CRP ####[facility] Mealarnjce9[address] [place], [place] [address]Dr. Farhat Leal Urea nitrogen/Creatinine [Mass ratio] 28.3 mg/mg Normal [facility] Comment on above: Performed By: #### B WIND TURBINE ELECTRICAL ENGINEER, CMP, CRP ####[facility] Blrydforam82[address] [place], [place] [address]Dr. Farhat Leal PROTIMEon 11-27-2021 INR Coag (PPP) [Relative time] 1.25 {INR} Normal [facility] Comment on above: Performed By: #### P T ####[facility] Bumhqzjnlb[address] [place], [place] [address]Dr. Farhat Leal INR GUIDELINES SEE BELOW Normal [facility] Comment on above: Result Comment: MALINA RED INR: 2.0 - 3.0 CONDITIONS NOT LISTED BELOW 2.5 - 3.5 FOR PROSTHETIC HEART VALVE REPLACEMENT 2.5 - 3.5 RECURRENT THROMBOSIS Performed By: #### P T ####[facility] Knxgcozzgj3126[address] [place], [place] [address]Dr. Farhat Leal PT Coag (PPP) [Time] 13.3 s Critically high 9.0-11.6 [facility] Comment on above: Performed By: #### P T ####[facility] Wgzyiyztdb17[address] [place], [place] [address]Dr. Farhat Leal SED RATE WESTERGRENon 2021 SED RATE 60 mm/hr Critically high <=20 [facility] Comment on above: Performed By: #### S EDR ####[facility] Oizicomlrp5[address] [place], [place] [address]Dr. Farhat Leal VANCOMYCIN TROUGHon 10-13-20 22 VANCOMYCIN TROUGH 21.2 ug/ml Critically high 5.0-20.0 Th [facility] Comment on above: Performed By: #### V ANCT ####[facility] Luphemzvzw92[address] [place], [place] [address]Dr. Farhat Leal XR CHEST 1 Von 11-27-2021 XR CHEST 1 V Normal [facility] BNPon 11-26-2021 Natriuretic peptide B (Bld) [Mass/Vol] 34993.0 pg/mL Critically high <=1,800.0 [facility] Comment on above: Performed By: #### B WIND TURBINE ELECTRICAL ENGINEER, CRP, CMP ####[facility] Ckjlppawwi2728[address] [place], [place] [address]Dr. Farhat Leal CBC AUTO DIFFon 11-26-2021 BASO # 0.0 103/ul Normal 0.0-0.1 [facility] Comment on above: Performed By: #### C BC ####[facility] Uyfztxnkhe6495[address] [place], [place] [address]Dr. Farhat Leal Basophils/100 WBC (Bld) 0.2 % Normal 0.2-2.0 [facility] Comment on above: Performed By: #### C BC ####[facility] Dintlwphcl[address] [place], [place] [address]DrSkylar Leal EO # 0.0 103/ul Normal 0.0-0.7 [facility] Comment on above: Performed By: #### C BC ####[facility] Hewzdljmwx246[address] [place], [place] [address]DrSkylar Leal Eosinophils/100 WBC (Bld) 0.3 % Critically low 0.9-7.0 [facility] Comment on above: Performed By: #### C BC ####[facility] Nzgqttwrrk5865[address] [place], [place] [address]DrSkylar Leal Erythrocyte distribution width (RBC) [Ratio] 13.9 % Normal 11.0-15.0 [facility] Comment on above: Performed By: #### C BC ####[facility] Xymtcrayof109[address] [place], [place] [address]DrSkylar Leal Hematocrit (Bld) [Volume fraction] 27.3 % Critically low 42.0-54.0 [facility] Comment on above: Performed By: #### C BC ####[facility] Hrfykxkffd[address] [place] [address]DrSkylar Leal Hemoglobin (Bld) [Mass/Vol] 8.8 g/dL Critically low 14.0-18.0 [facility] Comment on above: Performed By: #### C BC ####[facility] Cnbnvpzmie16[address] [place], [place] [address]DrSkylar Leal IG # 0.17 10e3/ul Critically high 0.00-0.03 [facility] Comment on above: Performed By: #### C BC ####[facility] Kmvseixllr9164[address] [place], [place] [address]DrSkylar Leal IG % 1.2 % Critically high 0.0-0.5 [facility] Comment on above: Performed By: #### C BC ####[facility] Xqxsxbkriz8039[address] [place], [place] [address]DrSkylar Leal LYMPH # 0.7 103/ul Critically low 1.2-3.8 [facility] Comment on above: Performed By: #### C BC ####[facility] Dxcqiyriei5065[address] [place], [place] [address]DrSkylar Leal Lymphocytes/100 WBC (Bld) 4.8 % Critically low 20.5-60.0 [facility] Comment on above: Performed By: #### C BC ####[facility] Kqlldxmxvh5258[address] [place], [place] [address]DrSkylar Leal MANUAL DIFF REQ NO Normal [facility] Comment on above: Performed By: #### C BC ####[facility] Dajvvragsj685[address] [place], [place] [address]DrSkylar Leal MCH (RBC) [Entitic mass] 29.9 pg Normal 25.9-34.0 [facility] Comment on above: Performed By: #### C BC ####[facility] Yirqwuebwv6448[address] [place], [place] [address]DrSkylar Leal MCHC (RBC) [Mass/Vol] 32.2 g/dL Normal 29.9-35.2 [facility] Comment on above: Performed By: #### C BC ####[facility] Rdbpsnpirt8[address] [place] [address]DrSkylar Leal MCV (RBC) [Entitic vol] 92.9 fL Normal 80.0-94.0 [facility] Comment on above: Performed By: #### C BC ####[facility] Sebfjqtutx7028[address] [place], [place] [address]DrSkylar Leal MONO # 1.3 103/ul Critically high 0.3-0.8 [facility] Comment on above: Performed By: #### C BC ####[facility] Ltbsknndky9484[address] [place], [place] [address]DrSkylar Leal Monocytes/100 WBC (Bld) 9.6 % Normal 1.7-12.0 [facility] Comment on above: Performed By: #### C BC ####[facility] Vyvayydijn1924[address] [place], [place] [address]DrSkylar Leal NEUT # 11.4 103/ul Critically high 1.4-6.5 [facility] Comment on above: Performed By: #### C BC ####[facility] Jdqtwhecne8689[address] [place], [place] [address]DrSkylar Leal Neutrophils/100 WBC (Bld) 83.9 % Critically high 43.0-75.0 [facility] Comment on above: Performed By: #### C BC ####[facility] Cdacujntbe5812[address] [place], [place] [address]DrSkylar Leal Platelet mean volume (Bld) [Entitic vol] 9.6 fL Normal 9.5-13.5 [facility] Comment on above: Performed By: #### C BC ####[facility] Chzaeyedrz9[address] [place], [place] [address]DrSkylar Leal PLT 395 103/ul Normal 150-450 [facility] Comment on above: Performed By: #### C BC ####[facility] Ejhrohejry5128[address] [place], [place] [address]DrSkylar Leal RBC 2.94 106/ul Critically low 4.70-6.10 [facility] Comment on above: Performed By: #### C BC ####[facility] X[address]zyvesrgg5[address] [place] [address]Dr. Farhat Leal WBC 13.6 103/ul Critically high 4.0-11.0 [facility] Comment on above: Performed By: #### C BC ####[facility] Vufvdfriov[address] [place] [address]Dr. Farhat Leal CRPon 11-26-2021 CRP [Mass/Vol] mg/L Critically high <=1.0 [facility] Comment on above: Performed By: #### B WIND TURBINE ELECTRICAL ENGINEER, CRP, CMP ####[facility] Nhascetkux8[address] [place], [place] [address]Dr. Farhat Leal PROF 14(COMP METB)on 022 Albumin [Mass/Vol] 1.5 g/dL Critically low 3.4-5.0 [facility] Comment on above: Performed By: #### B WIND TURBINE ELECTRICAL ENGINEER, CRP, CMP ####[facility] Rmlhpyjhqn6905 [place] [address]Dr. Farhat Leal Albumin/Globulin [Mass ratio] 0.4 {ratio} Normal [facility] Comment on above: Performed By: #### B WIND TURBINE ELECTRICAL ENGINEER, CRP, CMP ####[facility] Glrzujylsb33[address] [place] [address]Dr. Farhat Leal ALP [Catalytic activity/Vol] 88 U/L Normal 46-116 [facility] Comment on above: Performed By: #### B WIND TURBINE ELECTRICAL ENGINEER, CRP, CMP ####[facility] Ot[address]bswdq[address] [place] [address]Dr. Farhat Leal ALT [Catalytic activity/Vol] 29 U/L Normal 16-63 [facility] Comment on above: Performed By: #### B WIND TURBINE ELECTRICAL ENGINEER, CRP, CMP ####[facility] Oyasqhagln[address] [place] [address]Dr. Farhat Leal Anion gap [Moles/Vol] 13.3 mmol/L Normal [facility] Comment on above: Performed By: #### B WIND TURBINE ELECTRICAL ENGINEER, CRP, CMP ####[facility] Fkqjdfjswh50[address] [place] [address]Dr. Farhat Leal AST [Catalytic activity/Vol] 32 U/L Normal 15-37 [facility] Comment on above: Performed By: #### B WIND TURBINE ELECTRICAL ENGINEER, CRP, CMP ####[facility] Qisgpaevvd[address] [place] [address]Dr. Farhat Leal Bilirubin [Mass/Vol] 0.6 mg/dL Normal 0.2-1.0 [facility] Comment on above: Performed By: #### B WIND TURBINE ELECTRICAL ENGINEER, CRP, CMP ####[facility] Ndtquxajia7158 [place] [address]Dr. Farhat Leal Calcium [Mass/Vol] 8.0 mg/dL Critically low 8.5-10.1 Th [facility] Comment on above: Performed By: #### B WIND TURBINE ELECTRICAL ENGINEER, CRP, CMP ####[facility] Sfsondhabm55[address] [place], [place] [address]Dr. Farhat Leal Chloride [Moles/Vol] 98 mmol/L Normal 98-107 [facility] Comment on above: Performed By: #### B WIND TURBINE ELECTRICAL ENGINEER, CRP, CMP ####[facility] Naolienpwe6735[address] [place], [place] [address]Dr. Farhat Leal CO2 [Moles/Vol] 23.7 mmol/L Normal 21.0-32.0 [facility] Comment on above: Performed By: #### B WIND TURBINE ELECTRICAL ENGINEER, CRP, CMP ####[facility] Owaldhtyxg16[address] [place] [address]Dr. Farhat Leal Creatinine [Mass/Vol] 2.08 mg/dL Critically high 0.70-1.30 [facility] Comment on above: Performed By: #### B WIND TURBINE ELECTRICAL ENGINEER, CRP, CMP ####[facility] Yolddixlyq[address] [place], [place] [address]Dr. Farhat Leal EGFR-AF MALDIVIAN 38 mL/min/1.73m2 Critically low >=60 [facility] Comment on above: Performed By: #### B WIND TURBINE ELECTRICAL ENGINEER, CRP, CMP ####[facility] Pmzjcrsrow0624[address] [place], [place] [address]Dr. Farhat Leal EGFR-NON AF MALDIVIAN 31 mL/min/1.73m2 Critically low >=60 [facility] Comment on above: Performed By: #### B WIND TURBINE ELECTRICAL ENGINEER, CRP, CMP ####[facility] Kjttaystkq6429 [place] [address]Dr. Farhat Leal Globulin (S) [Mass/Vol] 3.7 g/dL Normal [facility] Comment on above: Performed By: #### B WIND TURBINE ELECTRICAL ENGINEER, CRP, CMP ####[facility] Vfyqhjrcvt1065 [place] [address]Dr. Farhat Leal Glucose [Mass/Vol] 315 mg/dL Critically high 74-106 T [facility] Comment on above: Performed By: #### B WIND TURBINE ELECTRICAL ENGINEER, CRP, CMP ####[facility] Csmnzzdhck[address] [place], [place] [address]Dr. Farhat Leal Potassium [Moles/Vol] 4.0 mmol/L Normal 3.5-5.1 [facility] Comment on above: Performed By: #### B WIND TURBINE ELECTRICAL ENGINEER, CRP, CMP ####[facility] Eaxzciqapf6055[address] [place], [place] [address]Dr. Farhat Leal Protein [Mass/Vol] 5.2 g/dL Critically low 6.4-8.2 Th [facility] Comment on above: Performed By: #### B WIND TURBINE ELECTRICAL ENGINEER, CRP, CMP ####[facility] S[address]jhhdfljr14[address] [place], [place] [address]Dr. Farhat Leal Sodium [Moles/Vol] 131 mmol/L Critically low 136-145 Th [facility] Comment on above: Performed By: #### B WIND TURBINE ELECTRICAL ENGINEER, CRP, CMP ####[facility] Foezgftkqn9726[address] [place], [place] [address]Dr. Farhat Leal Urea nitrogen [Mass/Vol] 50.0 mg/dL Critically high 7.0-18.0 [facility] Comment on above: Performed By: #### B WIND TURBINE ELECTRICAL ENGINEER, CRP, CMP ####[facility] Xfkytxseds5176[address] [place], [place] [address]Dr. Farhat Leal Urea nitrogen/Creatinine [Mass ratio] 24.0 mg/mg Normal [facility] Comment on above: Performed By: #### B WIND TURBINE ELECTRICAL ENGINEER, CRP, CMP ####[facility] Hagdrtdnnc5635 [place] [address]Dr. Farhat Leal PROTIMEon 11-26-2021 INR Coag (PPP) [Relative time] 1.31 {INR} Normal [facility] Comment on above: Performed By: #### P T ####[facility] Fpjkczlusr[address] [place] [address]Dr. Farhat Leal INR GUIDELINES SEE BELOW Normal [facility] Comment on above: Result Comment: MALINA RED INR: 2.0 - 3.0 CONDITIONS NOT LISTED BELOW 2.5 - 3.5 FOR PROSTHETIC HEART VALVE REPLACEMENT 2.5 - 3.5 RECURRENT THROMBOSIS Performed By: #### P T ####[facility] Rkcqpifhxb37[address] [place], [place] [address]Dr. Farhat Leal PT Coag (PPP) [Time] 13.9 s Critically high 9.0-11.6 [facility] Comment on above: Performed By: #### P T ####[facility] Rcqjhyjsqw056[address] [place], [place] [address]Dr. Farhat Leal SED RATE [place] 2021 SED RATE 87 mm/hr Critically high <=20 [facility] Comment on above: Performed By: #### S EDR ####[facility] Npzpmbzkky8511[address] [place], [place] [address]Dr. Farhat Leal BNPon 11-25-2021 Natriuretic peptide B (Bld) [Mass/Vol] 29937.0 pg/mL Critically high <=1,800.0 [facility] Comment on above: Performed By: #### C MP, BNP, CRP ####[facility] Gkkmkanaps4475[address] [place], [place] [address]Dr. Farhat Leal CBC AUTO DIFFon 11-25-2021 BASO # 0.0 103/ul Normal 0.0-0.1 [facility] Comment on above: Performed By: #### C BC ####[facility] Qfkfgvqyyi20[address] [place], [place] [address]Dr. Farhat Leal Basophils/100 WBC (Bld) 0.4 % Normal 0.2-2.0 [facility] Comment on above: Performed By: #### C BC ####[facility] I[address]xsydyb[address] [place] [id number]. Farhat Leal EO # 0.1 103/ul Normal 0.0-0.7 [facility] Comment on above: Performed By: #### C BC ####[facility] Vsyobmixjr9377 [place] [phone]. Farhat Leal Eosinophils/100 WBC (Bld) 1.2 % Normal 0.9-7.0 [facility] Comment on above: Performed By: #### C BC ####[facility] Tselobzdys9957 [place] [address]Dr. Farhat Leal Erythrocyte distribution width (RBC) [Ratio] 13.7 % Normal 11.0-15.0 [facility] Comment on above: Performed By: #### C BC ####[facility] Xfdvcvifew110[address] [place], [place] [address]Dr. Farhat Leal Hematocrit (Bld) [Volume fraction] 29.6 % Critically low 42.0-54.0 [facility] Comment on above: Performed By: #### C BC ####[facility] Tchudjkoug6754[address] [place], [place] [address]Dr. Farhat Leal Hemoglobin (Bld) [Mass/Vol] 9.3 g/dL Critically low 14.0-18.0 [facility] Comment on above: Performed By: #### C BC ####[facility] Ucpnwooxqy7[address] [place], [place] [address]Dr. Farhat Leal IG # 0.15 10e3/ul Critically high 0.00-0.03 [facility] Comment on above: Performed By: #### C BC ####[facility] Cmhghdwucj4[address] [place], [place] [address]Dr. Farhat Leal IG % 1.4 % Critically high 0.0-0.5 [facility] Comment on above: Performed By: #### C BC ####[facility] Qcbjejpuyf8[address] [place], [place] [address]DrSkylar Leal LYMPH # 0.8 103/ul Critically low 1.2-3.8 [facility] Comment on above: Performed By: #### C BC ####[facility] Okjqpskdyy28[address] [place] [address]Dr. Farhat Leal Lymphocytes/100 WBC (Bld) 7.3 % Critically low 20.5-60.0 [facility] Comment on above: Performed By: #### C BC ####[facility] Fdkcphzqkw5421 [place] [address]Dr. Farhat Leal MANUAL DIFF REQ NO Normal [facility] Comment on above: Performed By: #### C BC ####[facility] Yqiazeltuw1560 [place] [address]Dr. Farhat Leal MCH (RBC) [Entitic mass] 29.3 pg Normal 25.9-34.0 [facility] Comment on above: Performed By: #### C BC ####[facility] Vrezyteeef9[address] [place], [place] [address]Dr. Farhat Leal MCHC (RBC) [Mass/Vol] 31.4 g/dL Normal 29.9-35.2 [facility] Comment on above: Performed By: #### C BC ####[facility] Bbewohtqib5145[address] [place], [place] [address]Dr. Farhat Leal MCV (RBC) [Entitic vol] 93.4 fL Normal 80.0-94.0 [facility] Comment on above: Performed By: #### C BC ####[facility] Oingenkobh[address] [place] [address]Dr. Farhat eLal MONO # 1.3 103/ul Critically high 0.3-0.8 [facility] Comment on above: Performed By: #### C BC ####[facility] Qkxxbhoakn8010 [place] [address]Dr. Farhat Leal Monocytes/100 WBC (Bld) 12.3 % Critically high 1.7-12.0 [facility] Comment on above: Performed By: #### C BC ####[facility] Gjdxaqodtd9762 [place] [address]Dr. Farhat Leal NEUT # 8.4 103/ul Critically high 1.4-6.5 [facility] Comment on above: Performed By: #### C BC ####[facility] Pdmmnofnmx0621 [place] [address]Dr. Farhat Leal Neutrophils/100 WBC (Bld) 77.4 % Critically high 43.0-75.0 [facility] Comment on above: Performed By: #### C BC ####[facility] Fjxiljadwz1845 [place] [address]Dr. Farhat Leal Platelet mean volume (Bld) [Entitic vol] 9.8 fL Normal 9.5-13.5 [facility] Comment on above: Performed By: #### C BC ####[facility] Gygpvkotpv5093 [place] [address]Dr. Farhat Leal PLT 390 103/ul Normal 150-450 [facility] Comment on above: Performed By: #### C BC ####[facility] Ubzqmraqon9[address] [place], [place] [address]Dr. Farhat Leal RBC 3.17 106/ul Critically low 4.70-6.10 [facility] Comment on above: Performed By: #### C BC ####[facility] Faacpmlqzf[address] [place], [place] [address]Dr. Farhat Leal WBC 10.9 103/ul Normal 4.0-11.0 [facility] Comment on above: Performed By: #### C BC ####[facility] Ylrjfwniyc69[address] [place], [place] [address]Dr. Farhat Leal CRPon 11-25-2021 CRP 27.2 mg/dL Critically high <=1.0 [facility] Comment on above: Performed By: #### C MP, BNP, CRP ####[facility] Gbecszcifh5[address] [place] [address]Dr. Farhat Leal PROF 14(COMP METB)on 022 Albumin [Mass/Vol] 1.5 g/dL Critically low 3.4-5.0 Th [facility] Comment on above: Performed By: #### C MP, BNP, CRP ####[facility] Gnnagryxge4525 [place] [address]Dr. Farhat Leal Albumin/Globulin [Mass ratio] 0.4 {ratio} Normal [facility] Comment on above: Performed By: #### C MP, BNP, CRP ####[facility] Aoeteztvjn9373 [place] [address]Dr. Farhat Leal ALP [Catalytic activity/Vol] 86 U/L Normal 46-116 [facility] Comment on above: Performed By: #### C MP, BNP, CRP ####[facility] Lsmmtbmipz8054 [place] [address]Dr. Madelynlorri Leal ALT [Catalytic activity/Vol] 34 U/L Normal 16-63 [facility] Comment on above: Performed By: #### C MP, BNP, CRP ####[facility] Mlxlsiwjto8917[address] [place], [place] [address]Dr. Farhat Leal Anion gap [Moles/Vol] 17.8 mmol/L Normal [facility] Comment on above: Performed By: #### C MP, BNP, CRP ####[facility] Jcrwqugmmm5758[address] [place], [place] [address]Dr. Madelynlorri Leal AST [Catalytic activity/Vol] 48 U/L Critically high 15-37 [facility] Comment on above: Performed By: #### C MP, BNP, CRP ####[facility] Vudhqycwhp99[address] [place], [place] [address]Dr. Madelynlorri Leal Bilirubin [Mass/Vol] 0.8 mg/dL Normal 0.2-1.0 [facility] Comment on above: Performed By: #### C MP, BNP, CRP ####[facility] Qymqromhgx4747[address] [place], [place] [address]Dr. Farhat Leal Calcium [Mass/Vol] 8.3 mg/dL Critically low 8.5-10.1 [facility] Comment on above: Performed By: #### C MP, BNP, CRP ####[facility] Rjliwvemjj58[address] [place], [place] [address]Dr. Farhat Leal Chloride [Moles/Vol] 97 mmol/L Critically low 98-107 [facility] Comment on above: Performed By: #### C MP, BNP, CRP ####[facility] Yqxtybxmqc6064 [place] [address]Dr. Farhat Leal CO2 [Moles/Vol] 23.0 mmol/L Normal 21.0-32.0 [facility] Comment on above: Performed By: #### C MP, BNP, CRP ####[facility] Zdxjbwpkor2364 [place] [address]Dr. Farhat Leal Creatinine [Mass/Vol] 1.68 mg/dL Critically high 0.70-1.30 [facility] Comment on above: Performed By: #### C MP, BNP, CRP ####[facility] N[address]atuszrsr22[address] [place], [place] [address]Dr. Farhat Leal EGFR-AF MALDIVIAN 48 mL/min/1.73m2 Critically low >=60 [facility] Comment on above: Performed By: #### C MP, BNP, CRP ####[facility] Fooklomxdt[address] [place], [place] [address]Dr. Farhat Leal EGFR-NON AF MALDIVIAN 40 mL/min/1.73m2 Critically low >=60 [facility] Comment on above: Performed By: #### C MP, BNP, CRP ####[facility] Uoomrthtrp8[address] [place], [place] [address]Dr. Farhat Leal Globulin (S) [Mass/Vol] 3.9 g/dL Normal [facility] Comment on above: Performed By: #### C MP, BNP, CRP ####[facility] Paltabdesw[address] [place], [place] [address]Dr. Farhat Leal Glucose [Mass/Vol] 282 mg/dL Critically high 74-106 T [facility] Comment on above: Performed By: #### C MP, BNP, CRP ####[facility] Zudxbggbmm9716[address] [place], [place] [address]Dr. Farhat Leal Potassium [Moles/Vol] 4.8 mmol/L Normal 3.5-5.1 [facility] Comment on above: Performed By: #### C MP, BNP, CRP ####[facility] Nydyuegvkf9513[address] [place], [place] [address]Dr. Farhat Leal Protein [Mass/Vol] 5.4 g/dL Critically low 6.4-8.2 Th [facility] Comment on above: Performed By: #### C MP, BNP, CRP ####[facility] Jvgnrkndka[address] [place] [address]Dr. Farhat Leal Sodium [Moles/Vol] 133 mmol/L Critically low 136-145 Th [facility] Comment on above: Performed By: #### C MP, BNP, CRP ####[facility] Abhdprcnmj7076 [place] [address]Dr. Farhat Leal Urea nitrogen [Mass/Vol] 40.0 mg/dL Critically high 7.0-18.0 [facility] Comment on above: Performed By: #### C MP, BNP, CRP ####[facility] Uiawtfsdsg7634 [place] [address]Dr. Farhat Leal Urea nitrogen/Creatinine [Mass ratio] 23.8 mg/mg Normal [facility] Comment on above: Performed By: #### C MP, BNP, CRP ####[facility] Cantowzyau[address] [place], [place] [address]Dr. Farhat Leal PROTIMEon 11-25-2021 INR Coag (PPP) [Relative time] 1.48 {INR} Normal [facility] Comment on above: Performed By: #### P T ####[facility] [id number] [place], [place] [address]Dr. Farhat Leal INR GUIDELINES SEE BELOW Normal [facility] Comment on above: Result Comment: MALINA RED INR: 2.0 - 3.0 CONDITIONS NOT LISTED BELOW 2.5 - 3.5 FOR PROSTHETIC HEART VALVE REPLACEMENT 2.5 - 3.5 RECURRENT THROMBOSIS Performed By: #### P T ####[facility] [address] [place], [place] [address]Dr. Farhat Leal PT Coag (PPP) [Time] 15.6 s Critically high 9.0-11.6 [facility] Comment on above: Performed By: #### P T ####[facility] [id number] [place], [place] [address]Dr. Farhat Leal SED RATE WESTERGRENon 2021 SED RATE 76 mm/hr Critically high <=20 [facility] [facility] Comment on above: Performed By: #### S EDR ####[facility] Acskwkqxas[address] [place], [place] [address]Dr. Farhat Leal BNPon 11-24-2021 Natriuretic peptide B (Bld) [Mass/Vol] 91656.0 pg/mL Critically high <=1,800.0 [facility] Comment on above: Performed By: #### B WIND TURBINE ELECTRICAL ENGINEER, CMP, CRP ####[facility] Tcymnkreov6[address] [place], [place] [address]Dr. Farhat Leal CBC AUTO DIFFon 11-24-2021 BASO # 0.0 103/ul Normal 0.0-0.1 [facility] Comment on above: Performed By: #### C BC ####[facility] Nyydvkdsss9023[address] [place], [place] [address]Dr. Farhat Leal Basophils/100 WBC (Bld) 0.3 % Normal 0.2-2.0 [facility] Comment on above: Performed By: #### C BC ####[facility] Dmadlxkgii6557[address] [place], [place] [address]Dr. Farhat Leal EO # 0.2 103/ul Normal 0.0-0.7 [facility] Comment on above: Performed By: #### C BC ####[facility] Sahgkbibiw6089[address] [place], [place] [address]Dr. Farhat Leal Eosinophils/100 WBC (Bld) 1.2 % Normal 0.9-7.0 [facility] Comment on above: Performed By: #### C BC ####[facility] Hktyupzmmx654[address] [place], [place] [address]Dr. Farhat Leal Erythrocyte distribution width (RBC) [Ratio] 13.5 % Normal 11.0-15.0 [facility] Comment on above: Performed By: #### C BC ####[facility] Twrmvihxxr4[address] [place], [place] [address]Dr. Farhat Leal Hematocrit (Bld) [Volume fraction] 31.1 % Critically low 42.0-54.0 [facility] Comment on above: Performed By: #### C BC ####[facility] Qvcazzuvgt9951 [place] [phone]. Farhat Leal Hemoglobin (Bld) [Mass/Vol] 10.0 g/dL Critically low 14.0-18.0 [facility] Comment on above: Performed By: #### C BC ####[facility] Yeirrycpgl3213 [place] [phone]. Farhat Leal IG # 0.13 10e3/ul Critically high 0.00-0.03 [facility] Comment on above: Performed By: #### C BC ####[facility] Tyuuqwfnxf9208 [place] [phone]. Farhat Leal IG % 1.0 % Critically high 0.0-0.5 [facility] [place] Comment on above: Performed By: #### C BC ####[facility] Sibewjptrh68[address] [place] [address]DrSkylar Farhat Leal LYMPH # 0.7 103/ul Critically low 1.2-3.8 [facility] Comment on above: Performed By: #### C BC ####[facility] Jrkpbreduv0744 [place] [address]Dr. Farhat Leal Lymphocytes/100 WBC (Bld) 4.9 % Critically low 20.5-60.0 [facility] Comment on above: Performed By: #### C BC ####[facility] Gmgvpnzbyy8244 [place] [address]Dr. Farhat Leal MANUAL DIFF REQ NO Normal [facility] Comment on above: Performed By: #### C BC ####[facility] Nybeubmkya400[address] [place] [phone]. Farhat Leal MCH (RBC) [Entitic mass] 29.6 pg Normal 25.9-34.0 [facility] Comment on above: Performed By: #### C BC ####[facility] Cqckvbpeny4132 [place] [phone]. Farhat Leal MCHC (RBC) [Mass/Vol] 32.2 g/dL Normal 29.9-35.2 [facility] Comment on above: Performed By: #### C BC ####[facility] Xwaorogmkl9648 [place] [phone]. Farhat Leal MCV (RBC) [Entitic vol] 92.0 fL Normal 80.0-94.0 [facility] Comment on above: Performed By: #### C BC ####[facility] Sulzlcbzpr0959 [place] [phone] Farhat Leal MONO # 1.3 103/ul Critically high 0.3-0.8 [facility] Comment on above: Performed By: #### C BC ####[facility] Hhgaccpmim0426 [place] [phone]. Farhat Elvis Monocytes/100 WBC (Bld) 9.6 % Normal 1.7-12.0 [facility] Comment on above: Performed By: #### C BC ####[facility] Graiitrujm104[address] [place], [place] [address]Dr. Farhat Leal NEUT # 11.2 103/ul Critically high 1.4-6.5 [facility] Comment on above: Performed By: #### C BC ####[facility] Javtbmrvwz6928 [place] [phone]. Farhat Elvis Neutrophils/100 WBC (Bld) 83.0 % Critically high 43.0-75.0 [facility] Comment on above: Performed By: #### C BC ####[facility] Zdyvyuduir8161 [place] [phone]. Farhat Elvis Platelet mean volume (Bld) [Entitic vol] 9.5 fL Normal 9.5-13.5 [facility] Comment on above: Performed By: #### C BC ####[facility] Tdrzipvkkt8884 [place] [phone]. Farhat Elvis PLT 395 103/ul Normal 150-450 [facility] Comment on above: Performed By: #### C BC ####[facility] Snfmvftskp8686 [place] [phone] Leal RBC 3.38 106/ul Critically low 4.70-6.10 [facility] Comment on above: Performed By: #### C BC ####[facility] Rrlnmzrwvd4[address] [place], [place] [address]Jr. Farhat Leal WBC 13.4 103/ul Critically high 4.0-11.0 [facility] Comment on above: Performed By: #### C BC ####[facility] Fwjrypkjtk5855 [place], [place] [address]By. Farhat Leal CRPon 11-24-2021 CRP 27.8 mg/dL Critically high <=1.0 [facility] Comment on above: Performed By: #### B WIND TURBINE ELECTRICAL ENGINEER, CMP, CRP ####[facility] Btbmtvrhvr[address] [place], [place] [address]Ks. Farhat Leal CULTURE ANAEROBICon 11-25-19 22 CULTURE ANAEROBIC Culture Observations : NO GROWTH OF ANAEROBES AT 72 HOURS. [facility] Comment on above: Performed By: #### A NACX ####[facility] Zcaezkjffl1280 [place] [phone]. Farhat Leal CULTURE ANAEROBIC Culture Observations : NO GROWTH OF ANAEROBES AT 72 HOURS. [facility] Comment on above: Performed By: #### A NACX ####[facility] Uqbgmbuxza2574 [place] [phone]. Farhat Leal CULTURE ANAEROBIC Culture Observations : No growth of anaerobes at 72 hours. [facility] Comment on above: Performed By: #### A NACX ####[facility] Gpzarzkdju9347 [place] [phone]. Farhat Leal CULTURE ANAEROBIC Culture Observations : No growth of anaerobes at 72 hours. [facility] Comment on above: Performed By: #### A NACX ####[facility] Fdcvipkbje7303 [place] [phone]. Farhat Leal CULTURE URINEon 11-24-2021 CULTURE URINE Culture Observations : NO GROWTH. [facility] Comment on above: Performed By: #### U RCX ####[facility] Gbynvoyxjy6446 [place] [phone]. Farhat Leal ECHOCARDIO M/2D COMPLETEon 1 0-10-2022 ECHOCARDIO M/2D COMPLETE Normal [facility] ER URINE PROFILEon 2 Bilirubin Ql (U) Negative Normal NEGATIVE [facility] Comment on above: Performed By: #### E RUR ####[facility] Kwypcvgehm7163[address] [place], [place] [address]Dr. Farhat Leal Clarity (U) CLEAR Normal CLEAR [facility] Comment on above: Performed By: #### E RUR ####[facility] Fhniphmrho0076[address] [place], [place] [address]Dr. Farhat Leal Color (U) YELLOW Normal YELLOW [facility] Comment on above: Performed By: #### E RUR ####[facility] Cwktyuzvwq3328[address] [place], [place] [address]Dr. Farhat Leal ERUAHD A micrscopic examination will be performed if indicated. Normal [facility] Comment on above: Performed By: #### E RUR ####[facility] Omlvivqpxf815[address] [place], [place] [address]Dr. Farhat Leal Glucose Ql (U) Negative Normal NEGATIVE The [facility] Comment on above: Performed By: #### E RUR ####[facility] Azroucgfey1043[address] [place], [place] [address]Dr. Farhat Leal Hemoglobin Ql (U) Negative Normal NEGATIVE The [facility] Comment on above: Performed By: #### E RUR ####[facility] Jhdgwnalgo3099[address] [place], [place] [address]Dr. Farhat Leal Ketones Ql (U) TRACE Abnormal NEGATIVE [facility] Comment on above: Performed By: #### E RUR ####[facility] Stjjtevvnb6432[address] [place], [place] [address]Dr. Farhat Leal LEUKOCYTES Negative Normal NEGATIVE [facility] Comment on above: Performed By: #### E RUR ####[facility] Tvgevexkyt8596[address] [place], [place] [address]Dr. Farhat Leal Nitrite Ql (U) Negative Normal NEGATIVE [facility] Comment on above: Performed By: #### E RUR ####[facility] Vdbtlbamqw4635[address] [place], [place] [address]DrSkylar Leal pH (U) 5.5 [pH] Normal 5-9 [facility] Comment on above: Performed By: #### E RUR ####[facility] Jrhsmexzom4126[address] [place], [place] [address]Dr. Farhat Leal SPEC GRAVITY 1.015 Normal 1.005-<=1.02 5 [facility] Comment on above: Performed By: #### E RUR ####[facility] Tcqmifunqw[address] [place], [place] [address]Dr. Farhat Leal UA PROTEIN Negative Normal NEGATIVE/ TRACE [facility] Comment on above: Performed By: #### E RUR ####[facility] Vzntpvwmkm1507[address] [place], [place] [address]Dr. Farhat Leal UR MICRO IND NOT INDICATED Normal [facility] Comment on above: Performed By: #### E RUR ####[facility] Npipjgfssi184[address] [place], [place] [address]Dr. Farhat Leal Urobilinogen Qn (U) 0.2 {Boyd'U}/dL Normal 0.2 - 1. 0 [facility] Comment on above: Performed By: #### E RUR ####[facility] Kfqqsovblx2413[address] [place], [place] [address]Dr. Farhat Leal GRAM STAINon 11-24-2021 DIPHTHEROIDS Normal [facility] Comment on above: Performed By: #### G STAIN ####[facility] Wytgtrowex9425[address] [place], [place] [address]Dr. Farhat Leal EPITHELIALS Normal [facility] Comment on above: Performed By: #### G STAIN ####[facility] Ryboqvfwch6689[address] [place], [place] [address]Dr. Farhat Leal FUNGAL ELEMENTS Normal [facility] Comment on above: Performed By: #### G STAIN ####[facility] Mxdfsetlzu006[address] [place], [place] [address]Dr. Farhat Leal GRAM NEG BACILLI Normal [facility] Comment on above: Performed By: #### G STAIN ####[facility] Piezabcfaf8224[address] [place], [place] [address]Dr. Farhat Leal GRAM NEG DIPPLOCOCCI Normal [facility] Comment on above: Performed By: #### G STAIN ####[facility] Ycdcznyicp7697 [place] [address]Dr. Farhat Leal GRAM POS BACILLI Normal [facility] Comment on above: Performed By: #### G STAIN ####[facility] Ebtdhazuso8992 [place] [address]Dr. Farhat Leal GRAM POSITIVE COCCI FEW Normal [facility] Comment on above: Performed By: #### G STAIN ####[facility] Quqtjfrgit9798[address] [place], [place] [address]Dr. Farhat Leal GRAM STAIN SOURCE RT ACHILLES TENDON Normal [facility] Comment on above: Performed By: #### G STAIN ####[facility] Flfvspfdhh6448[address] [place], [place] [address]Dr. Farhat Leal GS_DIPTH Normal [facility] Comment on above: Performed By: #### G STAIN ####[facility] Yroshgaecr15[address] [place], [place] [address]Dr. Farhat Leal WBC RARE Normal [facility] Comment on above: Performed By: #### G STAIN ####[facility] Zyfkbqpzkd8[address] [place], [place] [address]Dr. Farhat Leal COMMENTS NO ORGANISMS OBSERVED Normal [facility] Comment on above: Performed By: #### G STAIN ####[facility] Qlsxnhbibq2064[address] [place], [place] [address]Dr. Farhat Leal DIPHTHEROIDS Normal [facility] Comment on above: Performed By: #### G STAIN ####[facility] Zyqilypwup9909 [place] [address]Dr. Farhat Leal EPITHELIALS Normal [facility] Comment on above: Performed By: #### G STAIN ####[facility] Rpnbpoedps4[address] [place], [place] [address]Dr. Farhat Leal FUNGAL ELEMENTS Normal [facility] Comment on above: Performed By: #### G STAIN ####[facility] Joxzzddclr[address] [place], [place] [address]Dr. Farhat Leal GRAM NEG BACILLI Normal [facility] Comment on above: Performed By: #### G STAIN ####[facility] Chioucchlg7530 [place] [phone]. Farhat Leal GRAM NEG DIPPLOCOCCI Normal [facility] Comment on above: Performed By: #### G STAIN ####[facility] Aceoiwzobt3870 [place] [phone]. Farhat Leal GRAM POS BACILLI Normal [facility] Comment on above: Performed By: #### G STAIN ####[facility] Tmaklwppve1383 [place] [address]Dr. Farhat Leal GRAM POSITIVE COCCI Normal [facility] Comment on above: Performed By: #### G STAIN ####[facility] Qrcumoxgin2103 [place] [address]Dr. Farhat Leal GRAM STAIN SOURCE RT CALCANEOUS Normal [facility] Comment on above: Performed By: #### G STAIN ####[facility] Daxhrbqjzw3867[address] [place], [place] [address]Dr. Farhat Leal GS_DIPTH Normal [facility] Comment on above: Performed By: #### G STAIN ####[facility] Tdqugvebeo9185 [place] [address]Dr. Farhat Leal WBC RARE Normal [facility] Comment on above: Performed By: #### G STAIN ####[facility] Ocyyacwdfa7155 [place] [address]Dr. Farhat Leal DIPHTHEROIDS Normal [facility] Comment on above: Performed By: #### G STAIN ####[facility] Irdwugagjl7394 [place] [address]Dr. Farhat Leal EPITHELIALS Normal [facility] Comment on above: Performed By: #### G STAIN ####[facility] Tziqxctajc1377 [place] [address]Dr. Farhat Leal FUNGAL ELEMENTS Normal [facility] Comment on above: Performed By: #### G STAIN ####[facility] Ezsxrcuacd2448 [place] [address]Dr. Farhat Leal GRAM NEG BACILLI FEW Normal [facility] Comment on above: Performed By: #### G STAIN ####[facility] Zghmztunyq0904 [place] [phone]. Farhat Leal GRAM NEG DIPPLOCOCCI Normal [facility] Comment on above: Performed By: #### G STAIN ####[facility] Aolkzqtxcn2424 [place] [address]Dr. Farhat Leal GRAM POS BACILLI Normal [facility] Comment on above: Performed By: #### G STAIN ####[facility] Khfnonawvt3363 [place] [address]Dr. Farhat Leal GRAM POSITIVE COCCI FEW Normal [facility] Comment on above: Performed By: #### G STAIN ####[facility] Kakbqprtbj5846 [place] [address]Dr. Farhat Leal GRAM STAIN SOURCE #2 Rt foot abscess Normal [facility] Comment on above: Performed By: #### G STAIN ####[facility] Iisaccaois9173 [place] [address]Dr. Farhat Leal GS_DIPTH Normal [facility] Comment on above: Performed By: #### G STAIN ####[facility] Mcellmynao023[address] [place], [place] [address]Dr. Farhat Leal WBC RARE Normal [facility] Comment on above: Performed By: #### G STAIN ####[facility] Xuompqrtfr0560 [place] [address]Dr. Farhat Leal DIPHTHEROIDS Normal [facility] Comment on above: Performed By: #### G STAIN ####[facility] Bxigjbebsg2630 [place] [address]Dr. Farhat Leal EPITHELIALS Normal [facility] Comment on above: Performed By: #### G STAIN ####[facility] Nlrqzmixjc2554 [place] [address]Dr. Farhat Leal FUNGAL ELEMENTS Normal [facility] Comment on above: Performed By: #### G STAIN ####[facility] Kguhakguir2889 [place] [address]Dr. Farhat Leal GRAM NEG BACILLI FEW Normal [facility] Comment on above: Performed By: #### G STAIN ####[facility] Ljnhgtfzua9133 [place] [address]Dr. Farhat Leal GRAM NEG DIPPLOCOCCI Normal [facility] Comment on above: Performed By: #### G STAIN ####[facility] Qwqlabvxxj7544 [place] [address]Dr. Farhat Leal GRAM POS BACILLI Normal [facility] Comment on above: Performed By: #### G STAIN ####[facility] Kltmlmbqtd1876 [place] [address]Dr. Farhat Leal GRAM POSITIVE COCCI FEW Normal [facility] Comment on above: Performed By: #### G STAIN ####[facility] Pvkznmnbcx6999 [place] [address]Dr. Farhat Leal GRAM STAIN SOURCE #1 Rt foot abscess Normal [facility] Comment on above: Performed By: #### G STAIN ####[facility] Ucqiuxzwcm8099[address] [place], [place] [address]Dr. Farhat Leal GS_DIPTH Normal [facility] Comment on above: Performed By: #### G STAIN ####[facility] Iiuniehrsz8899[address] [place], [place] [address]Dr. Farhat Leal WBC NONE SEEN Normal [facility] Comment on above: Performed By: #### G STAIN ####[facility] Yebieowlue5736[address] [place], [place] [address]Dr. Farhta Leal POINT OF CARE GLUCOSEon 11-15 Glucose [Mass/Vol] 331 mg/dL Critically high 74-106 [facility] Comment on above: Performed By: #### P OCGLUC ####[facility] Ldqavqznkk4792[address] [place], [place] [address]Dr. Farhat Leal Glucose [Mass/Vol] 236 mg/dL Critically high 74-106 [facility] Comment on above: Performed By: #### P OCGLUC ####[facility] Smyezymnhy3497[address] [place], [place] [address]Dr. Farhat Leal PROF 14(COMP METB)on 022 Albumin [Mass/Vol] 1.6 g/dL Critically low 3.4-5.0 Th [facility] Comment on above: Performed By: #### B WIND TURBINE ELECTRICAL ENGINEER, CMP, CRP ####[facility] Oeoackwdkh2037 [place] [address]Dr. Farhat Leal Albumin/Globulin [Mass ratio] 0.4 {ratio} Normal [facility] Comment on above: Performed By: #### B WIND TURBINE ELECTRICAL ENGINEER, CMP, CRP ####[facility] Hacnixzqez4926 [place] [address]Dr. Farhat Leal ALP [Catalytic activity/Vol] 94 U/L Normal 46-116 [facility] Comment on above: Performed By: #### B WIND TURBINE ELECTRICAL ENGINEER, CMP, CRP ####[facility] Dzxottvxpy3232[address] [place], [place] [address]Dr. Farhat Leal ALT [Catalytic activity/Vol] 49 U/L Normal 16-63 [facility] Comment on above: Performed By: #### B WIND TURBINE ELECTRICAL ENGINEER, CMP, CRP ####[facility] Kvrumprwqd1245[address] [place], [place] [address]Dr. Farhat Leal Anion gap [Moles/Vol] 12.5 mmol/L Normal [facility] Comment on above: Performed By: #### B WIND TURBINE ELECTRICAL ENGINEER, CMP, CRP ####[facility] Ebjsjdlcma5754[address] [place], [place] [address]Dr. Farhat Leal AST [Catalytic activity/Vol] 102 U/L Critically high 15-37 [facility] Comment on above: Performed By: #### B WIND TURBINE ELECTRICAL ENGINEER, CMP, CRP ####[facility] Afwffwxzkl1088[address] [place], [place] [address]Dr. Farhat Leal Bilirubin [Mass/Vol] 0.8 mg/dL Normal 0.2-1.0 [facility] Comment on above: Performed By: #### B WIND TURBINE ELECTRICAL ENGINEER, CMP, CRP ####[facility] Jutrxggepn1884[address] [place], [place] [address]Dr. Farhat Leal Calcium [Mass/Vol] 8.4 mg/dL Critically low 8.5-10.1 [facility] Comment on above: Performed By: #### B WIND TURBINE ELECTRICAL ENGINEER, CMP, CRP ####[facility] Emsyuwmgka7046[address] [place], [place] [address]Dr. Farhat Leal Chloride [Moles/Vol] 96 mmol/L Critically low 98-107 [facility] Comment on above: Performed By: #### B WIND TURBINE ELECTRICAL ENGINEER, CMP, CRP ####[facility] Kadlyhcswd5969 [place] [address]Dr. Farhat Leal CO2 [Moles/Vol] 24.8 mmol/L Normal 21.0-32.0 [facility] Comment on above: Performed By: #### B WIND TURBINE ELECTRICAL ENGINEER, CMP, CRP ####[facility] Jwmyrzyjvy4128 [place] [address]Dr. Farhat Leal Creatinine [Mass/Vol] 1.36 mg/dL Critically high 0.70-1.30 [facility] Comment on above: Performed By: #### B WIND TURBINE ELECTRICAL ENGINEER, CMP, CRP ####[facility] Adkixdvfht4478[address] [place], [place] [address]Dr. Farhat Leal EGFR-AF MALDIVIAN >60 Normal >=60 [facility] Comment on above: Performed By: #### B WIND TURBINE ELECTRICAL ENGINEER, CMP, CRP ####[facility] Ofcwmiorsw6162[address] [place], [place] [address]Dr. Farhat Leal EGFR-NON AF MALDIVIAN 51 mL/min/1.73m2 Critically low >=60 [facility] Comment on above: Performed By: #### B WIND TURBINE ELECTRICAL ENGINEER, CMP, CRP ####[facility] Yanbyvhdfi0545[address] [place], [place] [address]Dr. Farhat Leal Globulin (S) [Mass/Vol] 4.1 g/dL Normal [facility] Comment on above: Performed By: #### B WIND TURBINE ELECTRICAL ENGINEER, CMP, CRP ####[facility] Xydabhvtfz6446[address] [place], [place] [address]Dr. Farhat Leal Glucose [Mass/Vol] 204 mg/dL Critically high 74-106 [facility] Comment on above: Performed By: #### B WIND TURBINE ELECTRICAL ENGINEER, CMP, CRP ####[facility] Awcfnyfmas95[address] [place], [place] [address]Dr. Farhat Leal Potassium [Moles/Vol] 4.3 mmol/L Normal 3.5-5.1 [facility] Comment on above: Performed By: #### B WIND TURBINE ELECTRICAL ENGINEER, CMP, CRP ####[facility] Tyxnuwomiy746[address] [place], [place] [address]Dr. Farhat Leal Protein [Mass/Vol] 5.7 g/dL Critically low 6.4-8.2 Th [facility] Comment on above: Performed By: #### B WIND TURBINE ELECTRICAL ENGINEER, CMP, CRP ####[facility] Iuthllpbqh1560 [place] [address]Dr. Farhat Leal Sodium [Moles/Vol] 129 mmol/L Critically low 136-145 Th [facility] Comment on above: Performed By: #### B WIND TURBINE ELECTRICAL ENGINEER, CMP, CRP ####[facility] Nbttugxsgf7299 [place] [address]Dr. Farhat Leal Urea nitrogen [Mass/Vol] 41.0 mg/dL Critically high 7.0-18.0 [facility] Comment on above: Performed By: #### B WIND TURBINE ELECTRICAL ENGINEER, CMP, CRP ####[facility] Jljutzazed9296 [place] [address]Dr. Farhat Leal Urea nitrogen/Creatinine [Mass ratio] 30.1 mg/mg Normal [facility] Comment on above: Performed By: #### B WIND TURBINE ELECTRICAL ENGINEER, CMP, CRP ####[facility] Ywwcrxofzq48[address] [place], [place] [address]Dr. Farhat Leal PROTIMEon 11-24-2021 INR Coag (PPP) [Relative time] 2.20 {INR} Normal [facility] Comment on above: Performed By: #### P T ####[facility] Pvvjuflwog[address] [place], [place] [address]Dr. Farhat Leal INR GUIDELINES SEE BELOW Normal [facility] Comment on above: Result Comment: MALINA RED INR: 2.0 - 3.0 CONDITIONS NOT LISTED BELOW 2.5 - 3.5 FOR PROSTHETIC HEART VALVE REPLACEMENT 2.5 - 3.5 RECURRENT THROMBOSIS Performed By: #### P T ####[facility] Cfoxayjoau22[address] [place], [place] [address]Dr. Farhat Leal PT Coag (PPP) [Time] 22.6 s Critically high 9.0-11.6 [facility] Comment on above: Performed By: #### P T ####[facility] Fgxelzkzxd[address] [place], [place] [address]Dr. Farhat Leal SED RATE WESTERGRENon 2021 SED RATE 80 mm/hr Critically high <=20 [facility] Comment on above: Performed By: #### S EDR ####[facility] Xljwrlmauk3131 [place] [phone]. Farhat Leal BLOOD CULTURE ID PANELon A. baumannii Not detected Normal NOT DETECTED [facility] Comment on above: Performed By: #### B CID2 ####[facility] Dhxuwaftfb3215 [place] [phone]. Farhat Leal Bacteriodes fragilis Not detected Normal NOT DETECTED [facility] Comment on above: Performed By: #### B CID2 ####[facility] Hppufdkozh3248 [place] [address]Dr. Farhat Elvis BCID CONTROLS PASSED Normal [facility] Comment on above: Performed By: #### B CID2 ####[facility] Vbkiduhcnt8953 [place] [phone]. Madelynlorri Elvis BCIDBTHD BLOOD CULTURE BOTTLE INFORMATION Normal [facility] Comment on above: Performed By: #### B CID2 ####[facility] Phqhkyarxm8076 [place] [phone]. Farhat Leal BCIDHD1 ANTIMICROBIAL RESISTANCE GENES Normal [facility] Comment on above: Performed By: #### B CID2 ####[facility] Ffxcihqdka9737 [place] [address]Dr. Farhat Leal BCIDHD2 SEE BELOW Normal [facility] Comment on above: Result Comment: Note : Antimicrobial resitance can occur via multiple mechanisms. A Not Detected result for the [employer] antomicrobial resistance gene assays does not indicate antimicrobial susceptibility. Subculturing is required for species identification and susceptibility testing of isolates. Performed By: #### B CID2 ####[facility] Ybrxezzihx[address] [place], [place] [address]Dr. Farhat Leal BCIDHD3 Positive Normal [facility] Comment on above: Performed By: #### B CID2 ####[facility] Agcdnienjj[address] [place] [id number]. Farhat Leal BCIDHD4 Negative Normal [facility] Comment on above: Performed By: #### B CID2 ####[facility] Qckwzisrpf[address] [place] [address]Dr. Farhat Leal BCIDHD5 YEAST Normal [facility] Comment on above: Performed By: #### B CID2 ####[facility] Frpypoppvj7948 [place] [address]Dr. Yilan Leal Bottle Set: Set 1 Normal [facility] Comment on above: Performed By: #### B CID2 ####[facility] Gwmwfiahcl3328 [place] [address]Dr. Farhat Leal Bottle: Aerobic Normal [facility] Comment on above: Performed By: #### B CID2 ####[facility] Nhlzzfmegw034[address] [place], [place] [address]Dr. Farhat Leal C. neoformans/gattii Not detected Normal NOT DETECTED [facility] Comment on above: Performed By: #### B CID2 ####[facility] Lggdnvjwjy9216[address] [place], [place] [address]Dr. Yilorri Leal Disha albicans Not detected Normal NOT DETECTED [facility] Comment on above: Performed By: #### B CID2 ####[facility] Aobwtstoqi1215[address] [place], [place] [address]Dr. Farhat Leal Disha auris Not detected Normal NOT DETECTED The [facility] Comment on above: Performed By: #### B CID2 ####[facility] Zlqlnyyglm00[address] [place], [place] [address]Dr. Yilorri Leal Disha glabrata Not detected Normal NOT DETECTED [facility] Comment on above: Performed By: #### B CID2 ####[facility] Jprpudowrz7331 [place] [address]Dr. Yilorri Leal Disha Krusei Not detected Normal NOT DETECTED The [facility] Comment on above: Performed By: #### B CID2 ####[facility] Utqbjmuywz5754[address] [place], [place] [address]Dr. Yilorri Leal Disha Parapsilosis Not detected Normal NOT DETECTED [facility] Comment on above: Performed By: #### B CID2 ####[facility] Nduhrhbfbf[address] [place], [place] [id number]. Farhat Leal Disha Tropicalis Not detected Normal NOT DETECTED [facility] Comment on above: Performed By: #### B CID2 ####[facility] Jyxrsycnsu5583[address] [place], [place] [address]Dr. Farhat Leal CTX-M Resistant Gene Not Applicable Normal NOT DETECTE D [facility] Comment on above: Performed By: #### B CID2 ####[facility] Tbfouvltvd6067[address] [place], [place] [address]Dr. Farhat Leal E. Cloacae complex Not detected Normal NOT DETECTED [facility] Comment on above: Performed By: #### B CID2 ####[facility] Mxazhzarut104[address] [place], [place] [address]Dr. Farhat Leal E. faecalis Not detected Normal NOT DETECTED The [facility] Comment on above: Performed By: #### B CID2 ####[facility] Ndmgrjfxof36[address] [place], [place] [address]Dr. Farhat Leal E. faecium Not detected Normal NOT DETECTED The [facility] Comment on above: Performed By: #### B CID2 ####[facility] Vrerutcjjg8845[address] [place], [place] [address]Dr. Farhat Leal Enterobacteriaceae Not detected Normal NOT DETECTED [facility] Comment on above: Performed By: #### B CID2 ####[facility] Pdcflpbebv2007[address] [place], [place] [address]Dr. Farhat Leal Escherichia coli Not detected Normal NOT DETECTED [facility] Comment on above: Performed By: #### B CID2 ####[facility] Pjnyevgyjr5795[address] [place], [place] [address]Dr. Farhat Leal H. influenzae Not detected Normal NOT DETECTED The [facility] Comment on above: Performed By: #### B CID2 ####[facility] Gijhhshgsa1468[address] [place], [place] [address]Dr. Farhat Leal IMP Resistant Gene Not Applicable Normal NOT DETECTED [facility] Comment on above: Performed By: #### B CID2 ####[facility] Pgkulnckgt075[address] [place], [place] [address]Dr. Farhat Leal K. oxytoca Not detected Normal NOT DETECTED The [facility] Comment on above: Performed By: #### B CID2 ####[facility] Fkgcdgmwyz7994 [place] [address]Dr. Farhat Leal K. pneumoniae Not detected Normal NOT DETECTED The [facility] Comment on above: Performed By: #### B CID2 ####[facility] Nyitxqoybj5720 [place] [phone]. Farhat Leal Klebsiella aerogenes Not detected Normal NOT DETECTED [facility] Comment on above: Performed By: #### B CID2 ####[facility] Eildteqfjq916[address] [place], [place] [address]Dr. Farhat Leal KPC Resistant Gene Not Applicable Normal NOT DETECTED [facility] Comment on above: Performed By: #### B CID2 ####[facility] Mvpamxbbgm3397[address] [place], [place] [address]Dr. Farhat Leal List. monocytogenes Not detected Normal NOT DETECTED [facility] Comment on above: Performed By: #### B CID2 ####[facility] Jtwvehjdob6515[address] [place], [place] [address]Dr. Farhat Leal Mcr-1 Resistant Gene Not Applicable Normal NOT DETECTE D [facility] Comment on above: Performed By: #### B CID2 ####[facility] Gnbmdaxhus[address] [place], [place] [address]Dr. Farhat Leal mecA/C Not Applicable Normal NOT DETECTED The [facility] Comment on above: Performed By: #### B CID2 ####[facility] Kvdqucerxt9077 [place] [address]Dr. Farhat Leal mecA/C MREJ Detected Abnormal NOT DETECTED The [facility] Comment on above: Performed By: #### B CID2 ####[facility] Zbtyqndwrc9552[address] [place], [place] [address]Dr. Farhat Leal N. meningitidis Not detected Normal NOT DETECTED The [facility] Comment on above: Performed By: #### B CID2 ####[facility] Rdqroocgnw403018 [address] [place], [place] [address]Dr. Farhat Leal NDM Resistant Gene Not Applicable Normal NOT DETECTED [facility] Comment on above: Performed By: #### B CID2 ####[facility] Upihkacuwm2065[address] [place], [place] [address]Dr. Farhat Leal Oxa-48-like Not Applicable Normal NOT DETECTED The [facility] Comment on above: Performed By: #### B CID2 ####[facility] Pzkmylbvea8797[address] [place], [place] [address]Dr. Farhat Leal Proteus Not detected Normal NOT DETECTED The [facility] Comment on above: Performed By: #### B CID2 ####[facility] Jokbbsuiyo3118[address] [place], [place] [address]Dr. Farhat Leal Pseud. aeruginosa Not detected Normal NOT DETECTED [facility] Comment on above: Performed By: #### B CID2 ####[facility] Netgswjqac586[address] [place], [place] [address]Dr. Farhat Leal S. maltophilia Not detected Normal NOT DETECTED The [facility] Comment on above: Performed By: #### B CID2 ####[facility] Dxxfzmzelt337[address] [place], [place] [address]Dr. Farhat Leal Salmonella Not detected Normal NOT DETECTED The [facility] Comment on above: Performed By: #### B CID2 ####[facility] Qmegzofchr589[address] [place], [place] [address]Dr. Farhat Leal Seratia marcescens Not detected Normal NOT DETECTED [facility] Comment on above: Performed By: #### B CID2 ####[facility] Mxjmgtmoyc2616[address] [place], [place] [address]Dr. Farhat Leal Site: Rt Hand Normal [facility] Comment on above: Performed By: #### B CID2 ####[facility] Bpqvxmnzuu828[address] [place], [place] [address]Dr. Farhat Leal Staph. aureus Detected Abnormal NOT DETECTED The [facility] Comment on above: Performed By: #### B CID2 ####[facility] Ybxdmsgcqp8666[address] [place], [place] [address]Dr. Farhat Leal Staph. epidermidis Not detected Normal NOT DETECTED [facility] Comment on above: Performed By: #### B CID2 ####[facility] Rcwiqsyktl42[address] [place], [place] [address]Dr. Farhat Leal Staph. lugdunensis Not detected Normal NOT DETECTED [facility] Comment on above: Performed By: #### B CID2 ####[facility] Ypdvlkszhj833[address] [place], [place] [address]Dr. Farhat Leal Staphylococcus Detected Abnormal NOT DETECTED The [facility] Comment on above: Performed By: #### B CID2 ####[facility] Zrjkrbzbxs209[address] [place], [place] [address]Dr. Farhat Leal Strep. agalactiae Not detected Normal NOT DETECTED [facility] Comment on above: Performed By: #### B CID2 ####[facility] Inqvcdqgtp232[address] [place], [place] [address]Dr. Farhat Leal Strep. pneumoniae Not detected Normal NOT DETECTED [facility] Comment on above: Performed By: #### B CID2 ####[facility] Rqkutxogzm4387[address] [place], [place] [address]Dr. Farhat Leal Strep. pyogenes Not detected Normal NOT DETECTED The [facility] Comment on above: Performed By: #### B CID2 ####[facility] Djxbzghlsp8166[address] [place], [place] [address]Dr. Farhat Leal Streptococcus Not detected Normal NOT DETECTED The [facility] Comment on above: Performed By: #### B CID2 ####[facility] Hepwyofigq6869[address] [place], [place] [address]Dr. Farhat Leal Teodoro/B Resist. Gene Not Applicable Normal NOT DETECTED [facility] Comment on above: Performed By: #### B CID2 ####[facility] Sfnnwtaigm8782[address] [place], [place] [address]Dr. Farhat Leal VIM Resistant Gene Not Applicable Normal NOT DETECTED [facility] Comment on above: Performed By: #### B CID2 ####[facility] Jlnewnkbpb073[address] [place], [place] [address]Dr. Farhat Leal BNPon 11-23-2021 Natriuretic peptide B (Bld) [Mass/Vol] 02147.0 pg/mL Critically high <=1,800.0 [facility] Comment on above: Performed By: #### C MP, CMADM, BNP ####[facility] Bjbbnrdrhe1269 [place] [address]Dr. Farhat Leal CARDIAC AMANDA ADMITon 022 CK [Catalytic activity/Vol] 41 U/L Normal 39-308 [facility] Comment on above: Performed By: #### C MP, CMADM, BNP ####[facility] Hfycepnzyd1512 [place] [address]Dr. Farhat Leal CK.MB [Mass/Vol] 0.98 ng/mL Normal <=3.60 The [facility] Comment on above: Performed By: #### C MP, CMADM, BNP ####[facility] Kajuhsvetg2388 [place] [address]Dr. Farhat Leal HSTROP 30.1 pg/mL Normal 4.0-76.1 [facility] Comment on above: Result Comment: CUT- OFF POINTS HAVE BEEN ESTABLISHED BASED ON THE FOURTH UNIVERSAL DEFINITIONS OF MYOCARDIALINFARCTION. THE UPPER REFERENCE LIMIT (URL) OF TROPONIN, DEFINED THE 99TH PERCENTILE OFcTnI DISTRIBUTION IN A REFERENCE POPULATION, HAS BEEN CONFIRMED THE DECISION THRESHOLDFOR AK DIAGNOSIS. Performed By: #### C MP, CMADM, BNP ####[facility] Sgqnvoiidj1904 [place] [address]Dr. Madelynlorri Leal VALERIA 160 ng/mL Critically high 16-96 The [facility] Comment on above: Performed By: #### C MP, CMADM, BNP ####[facility] Cbtupnzxpz2314 [place] [address]Dr. Farhat Elvis CBC AUTO DIFFon 11-23-2021 BASO # 0.0 103/ul Normal 0.0-0.1 [facility] Comment on above: Performed By: #### C BC ####[facility] Sraijyqswm8893 [place] [address]Dr. Farhat Leal Basophils/100 WBC (Bld) 0.2 % Normal 0.2-2.0 [facility] Comment on above: Performed By: #### C BC ####[facility] Fadxzjphpt8462 [place] [address]Dr. Farhat Leal EO # 0.0 103/ul Normal 0.0-0.7 [facility] Comment on above: Performed By: #### C BC ####[facility] Trlusrguak4608 [place] [address]Dr. Farhat Leal Eosinophils/100 WBC (Bld) 0.1 % Critically low 0.9-7.0 [facility] Comment on above: Performed By: #### C BC ####[facility] Vfzswulmqq6161 [place] [address]Dr. Farhat Leal Erythrocyte distribution width (RBC) [Ratio] 13.4 % Normal 11.0-15.0 [facility] Comment on above: Performed By: #### C BC ####[facility] Lssxmtnljf9193[address] [place], [place] [address]Dr. Farhat Leal Hematocrit (Bld) [Volume fraction] 31.6 % Critically low 42.0-54.0 [facility] Comment on above: Performed By: #### C BC ####[facility] Enyibzblld41[address] [place], [place] [address]Dr. Farhat Leal Hemoglobin (Bld) [Mass/Vol] 10.4 g/dL Critically low 14.0-18.0 [facility] Comment on above: Performed By: #### C BC ####[facility] Fjqwghivrj9584[address] [place], [place] [address]Dr. Farhat Leal IG # 0.11 10e3/ul Critically high 0.00-0.03 The [facility] Comment on above: Performed By: #### C BC ####[facility] Dxudzzfozx6558 [place] [address]Dr. Farhat Leal IG % 0.7 % Critically high 0.0-0.5 The [facility] Comment on above: Performed By: #### C BC ####[facility] Hryyxrkfmh6258[address] [place], [place] [address]Dr. Farhat Leal LYMPH # 0.5 103/ul Critically low 1.2-3.8 The [facility] Comment on above: Performed By: #### C BC ####[facility] Rrubcxqjda9017 [place] [phone]. Farhat Elvis Lymphocytes/100 WBC (Bld) 2.8 % Critically low 20.5-60.0 [facility] Comment on above: Performed By: #### C BC ####[facility] Tqbshadcsz25[address] [place] [address]Dr. Madelynlorri Leal MANUAL DIFF REQ NO Normal The [facility] Comment on above: Performed By: #### C BC ####[facility] Hbjqbqwtad9067 [place] [address]Dr. Madelynlorri Leal MCH (RBC) [Entitic mass] 29.8 pg Normal 25.9-34.0 [facility] Comment on above: Performed By: #### C BC ####[facility] Atvljjjidq1653[address] [place], [place] [address]Dr. Farhat Leal MCHC (RBC) [Mass/Vol] 32.9 g/dL Normal 29.9-35.2 [facility] Comment on above: Performed By: #### C BC ####[facility] Ihvxqxapfx5579 [place] [address]Dr. Farhat Leal MCV (RBC) [Entitic vol] 90.5 fL Normal 80.0-94.0 [facility] Comment on above: Performed By: #### C BC ####[facility] Yksuzzffjp642[address] [place], [place] [address]Dr. Farhat Leal MONO # 1.3 103/ul Critically high 0.3-0.8 The [facility] Comment on above: Performed By: #### C BC ####[facility] Bcndeksssb5871 [place] [address]Dr. Farhat Leal Monocytes/100 WBC (Bld) 8.3 % Normal 1.7-12.0 [facility] Comment on above: Performed By: #### C BC ####[facility] Tlmuwinwcl5686[address] [place], [place] [address]Dr. Farhat Leal NEUT # 13.9 103/ul Critically high 1.4-6.5 The [facility] Comment on above: Performed By: #### C BC ####[facility] Qurntzqoee2727 [place], [place] [address]Xo. Farhat Leal Neutrophils/100 WBC (Bld) 87.9 % Critically high 43.0-75.0 [facility] Comment on above: Performed By: #### C BC ####[facility] Hpsrwbvsua6147 [place], [place] [address]Ed. Farhat Leal Platelet mean volume (Bld) [Entitic vol] 9.3 fL Critically low 9.5-13.5 [facility] Comment on above: Performed By: #### C BC ####[facility] Kxiyfnxxkv6203 [place], [place] [address]Oq. Farhat Leal PLT 390 103/ul Normal 150-450 [facility] Comment on above: Performed By: #### C BC ####[facility] Ccygpmdpsz4599 [place], [place] [address]Ww. Farhat Leal RBC 3.49 106/ul Critically low 4.70-6.10 The [facility] Comment on above: Performed By: #### C BC ####[facility] Apmjzagleo3274 [place], [place] [address]Mz. Farhat Leal WBC 15.9 103/ul Critically high 4.0-11.0 The [facility] Comment on above: Performed By: #### C BC ####[facility] Jeuhndpyrn35[address] [place], [place] [address]Qc. Farhat Leal CT HEAD WO CONon 11-23-2021 CT HEAD WO CON Normal The [facility] CULTURE BLOODon 11-23-2021 Microscopic examination of blood, culture Culture Observations: NO GROWTH AT 5 DAYS. Normal [facility] Comment on above: Performed By: #### B LDCX2 ####[facility] Bkdjcodter9060 [place] [phone]. Farhat Leal Covid-19 PCR ([facility])on SARS-CoV-2 (COVID-19) RNA JOSH+probe Ql (Unsp spec) Not detected Normal NOT DETECTED [facility] Comment on above: Result Comment: When [...] for this test is supported by the [place] of Health and Human Service's declaration that [...] be used). Performed By: #### C VDTBH ####[facility] Wuuxfozzug97[address] [place], [place] [address]DrSkylar Leal LACTATE/LACTIC ACIDon 2021 Lactate [Moles/Vol] 1.3 mmol/L Normal 0.4-1.9 [facility] Comment on above: Performed By: #### L ACT ####[facility] Vdpqjehyeq7665[address] [place], [place] [address]DrSkylar Leal Lactate [Moles/Vol] 1.3 mmol/L Normal 0.4-1.9 [facility] Comment on above: Performed By: #### L ACT ####[facility] Cyugqynwup95[address] [place], [place] [address]DrSkylar Leal POINT OF CARE GLUCOSEon Glucose [Mass/Vol] 252 mg/dL Critically high 74-106 [facility] Comment on above: Performed By: #### P OCGLUC ####[facility] Hnbmybzkmt25[address] [place], [place] [address]DrSkylar Leal PROF 14(COMP METB)on 022 Albumin [Mass/Vol] 1.6 g/dL Critically low 3.4-5.0 [facility] Comment on above: Performed By: #### C MP, CMADM, BNP ####[facility] Rhfgrjclro006[address] [place], [place] [address]DrSkylar Leal Albumin/Globulin [Mass ratio] 0.4 {ratio} Normal [facility] Comment on above: Performed By: #### C FATMATA MARROQUINDM, BNP ####[facility] Nadfwzzxfk7392 [place] [address]Dr. Farhat Leal ALP [Catalytic activity/Vol] 98 U/L Normal 46-116 [facility] Comment on above: Performed By: #### C MP CMADM, BNP ####[facility] Ahzcgeymzc7903 [place] [address]Dr. Farhat Leal ALT [Catalytic activity/Vol] 52 U/L Normal 16-63 [facility] Comment on above: Performed By: #### C CARA CMADM, BNP ####[facility] Aczsewaudn1721 [place] [address]Dr. Madelynlorri Elvis Anion gap [Moles/Vol] 9.8 mmol/L Normal [facility] Comment on above: Performed By: #### C CARA CMADM, BNP ####[facility] Pcxakajaqv6036 [place] [address]Dr. Farhat Leal AST [Catalytic activity/Vol] 122 U/L Critically high 15-37 [facility] Comment on above: Performed By: #### C CARA CMADM, BNP ####[facility] Iaeiseikuz3637 [place] [address]Dr. Farhat Elvis Bilirubin [Mass/Vol] 0.7 mg/dL Normal 0.2-1.0 [facility] Comment on above: Performed By: #### C CARA CMADM, BNP ####[facility] Uqynxopldu6994 [place] [address]Dr. Farhat Elvis Calcium [Mass/Vol] 8.6 mg/dL Normal 8.5-10.1 [facility] Comment on above: Performed By: #### C MP CMADM, BNP ####[facility] Pehynofpxo7317 [place] [address]Dr. Farhat Leal Chloride [Moles/Vol] 95 mmol/L Critically low 98-107 [facility] Comment on above: Performed By: #### C CARA CMADM, BNP ####[facility] Cywksjcyam2256 [place] [address]Dr. Farhat Leal CO2 [Moles/Vol] 29.6 mmol/L Normal 21.0-32.0 [facility] Comment on above: Performed By: #### C MP, CMADM, BNP ####[facility] Wjvhxbsvzb0631 [place] [address]Dr. Farhat Leal Creatinine [Mass/Vol] 1.49 mg/dL Critically high 0.70-1.30 [facility] Comment on above: Performed By: #### C MP, CMADM, BNP ####[facility] Jmvrycvaoi2454 [place] [address]Dr. Farhat Leal EGFR-AF MALDIVIAN 55 mL/min/1.73m2 Critically low >=60 [facility] Comment on above: Performed By: #### C MP, CMADM, BNP ####[facility] Drwanqjbvd7116 [place] [address]Dr. Farhat Leal EGFR-NON AF MALDIVIAN 46 mL/min/1.73m2 Critically low >=60 [facility] Comment on above: Performed By: #### C MP, CMADM, BNP ####[facility] K[address]ldsahgjf50[address] [place], [place] [address]Dr. Farhat Leal Globulin (S) [Mass/Vol] 4.3 g/dL Normal [facility] Comment on above: Performed By: #### C MP, CMADM, BNP ####[facility] Uezpifbbsj5297 [place] [address]Dr. Farhat Leal Glucose [Mass/Vol] 213 mg/dL Critically high 74-106 [facility] Comment on above: Performed By: #### C MP, CMADM, BNP ####[facility] Utnklktwev5338[address] [place], [place] [address]Dr. Farhat Leal Potassium [Moles/Vol] 4.4 mmol/L Normal 3.5-5.1 [facility] Comment on above: Performed By: #### C MP, CMADM, BNP ####[facility] Vshmjbvknn9756 [place] [address]Dr. Farhat Leal Protein [Mass/Vol] 5.9 g/dL Critically low 6.4-8.2 Th [facility] Comment on above: Performed By: #### C MP, CMADM, BNP ####[facility] Hwihbizion0244 [place] [address]Dr. Farhat Leal Sodium [Moles/Vol] 130 mmol/L Critically low 136-145 Th [facility] Comment on above: Performed By: #### C MP, CMADM, BNP ####[facility] Jnvqtpsfzr7374[address] [place], [place] [address]Dr. Farhat Leal Urea nitrogen [Mass/Vol] 46.0 mg/dL Critically high 7.0-18.0 [facility] Comment on above: Performed By: #### C MP, CMADM, BNP ####[facility] Zltfsrwyya0256[address] [place], [place] [address]Dr. Farhat Leal Urea nitrogen/Creatinine [Mass ratio] 30.9 mg/mg Normal [facility] Comment on above: Performed By: #### C MP, CMADM, BNP ####[facility] Vhtqzdsoux9[address] [place], [place] [address]Dr. Faraht Leal PROTIMEon 11-23-2021 INR Coag (PPP) [Relative time] 2.55 {INR} Normal [facility] Comment on above: Performed By: #### P TT, PT ####[facility] Sphmuqcewp494[address] [place], [place] [address]Dr. Farhat Leal INR GUIDELINES SEE BELOW Normal The [facility] Comment on above: Result Comment: MALINA RED INR: 2.0 - 3.0 CONDITIONS NOT LISTED BELOW 2.5 - 3.5 FOR PROSTHETIC HEART VALVE REPLACEMENT 2.5 - 3.5 RECURRENT THROMBOSIS Performed By: #### P TT, PT ####[facility] Innnxvmgcd1889[address] [place], [place] [address]Dr. Farhat Leal PT Coag (PPP) [Time] 25.9 s Critically high 9.0-11.6 [facility] Comment on above: Performed By: #### P TT, PT ####[facility] Ifkdpgfrbi1454[address] [place], [place] [address]Dr. Farhat Leal PTTon 11-23-2021 aPTT Coag (Bld) [Time] 39.9 s Critically high 22.3-36. 2 [facility] Comment on above: Performed By: #### P TT, PT ####[facility] Zbrqsmfzry112[address] [place], [place] [address]Dr. Farhat Leal XR CHEST 1 Von 11-23-2021 XR CHEST 1 V Normal [facility] XR HEEL RT 2Von 11-23-2021 XR HEEL RT 2V Normal [facility] XR FOOT RT MIN 3 VIEWSon XR FOOT RT MIN 3 VIEWS Normal [facility] US ARTERY LEG RTon US ARTERY LEG RT Normal [facility] CBC AUTO DIFFon 09-24-2021 BASO # 0.1 103/ul Normal 0.0-0.1 [facility] Comment on above: Performed By: #### C BC ####[facility] Vpekbtikea[address] [place], [place] [address]Dr. Farhat Leal Basophils/100 WBC (Bld) 0.7 % Normal 0.2-2.0 [facility] Comment on above: Performed By: #### C BC ####[facility] Dcsrekqcgs9849[address] [place], [place] [address]DrSkylar Leal EO # 0.3 103/ul Normal 0.0-0.7 [facility] Comment on above: Performed By: #### C BC ####[facility] Zutklfqync[address] [place], [place] [address]DrSkylar Leal Eosinophils/100 WBC (Bld) 3.9 % Normal 0.9-7.0 [facility] Comment on above: Performed By: #### C BC ####[facility] Hizylbujbi064[address] [place], [place] [address]DrSkylar Leal Erythrocyte distribution width (RBC) [Ratio] 12.6 % Normal 11.0-15.0 [facility] Comment on above: Performed By: #### C BC ####[facility] Stwwwjimkq8[address] [place], [place] [address]DrSkylar Leal Hematocrit (Bld) [Volume fraction] 38.9 % Critically low 42.0-54.0 [facility] Comment on above: Performed By: #### C BC ####[facility] Gjoumfraok0622 [place] [address]DrSkylar Farhat Elvis Hemoglobin (Bld) [Mass/Vol] 12.8 g/dL Critically low 14.0-18.0 The [facility] [facility] Comment on [facility]: Performed By: #### C BC ####[facility] Ybevsetqbl[address] [place], [place] [address]DrSkylar Leal IG # 0.10 10e3/ul Critically high 0.00-0.03 [facility] Comment on above: Performed By: #### C BC ####[facility] Hcytxhhwnp2934[address] [place], [place] [address]DrSkylar Leal IG % 1.2 % Critically high 0.0-0.5 [facility] Comment on above: Performed By: #### C BC ####[facility] Breuliqcst9744[address] [place], [place] [address]DrSkylar Leal LYMPH # 2.1 103/ul Normal 1.2-3.8 [facility] Comment on above: Performed By: #### C BC ####[facility] Yxovzzeyys1926[address] [place], [place] [address]DrSkylar Leal Lymphocytes/100 WBC (Bld) 25.9 % Normal 20.5-60.0 [facility] Comment on above: Performed By: #### C BC ####[facility] Vbygdwvzsl7701[address] [place], [place] [address]DrSkylar Leal MANUAL DIFF REQ NO Normal [facility] Comment on above: Performed By: #### C BC ####[facility] Lmrhmlunqs1826[address] [place], [place] [address]DrSkylar Leal MCH (RBC) [Entitic mass] 31.1 pg Normal 25.9-34.0 [facility] Comment on above: Performed By: #### C BC ####[facility] Roxirotwdp7258[address] [place], [place] [address]DrSkylar Leal MCHC (RBC) [Mass/Vol] 32.9 g/dL Normal 29.9-35.2 [facility] Comment on above: Performed By: #### C BC ####[facility] [address]ax[address]xdeui[address] [place] [address]Dr. Farhat Leal MCV (RBC) [Entitic vol] 94.6 fL Critically high 80.0-94.0 [facility] Comment on above: Performed By: #### C BC ####[facility] Vbamtchimt3392[address] [place], [place] [address]Dr. Farhat Leal MONO # 1.2 103/ul Critically high 0.3-0.8 [facility] Comment on above: Performed By: #### C BC ####[facility] Qaoqkjtuhp229[address] [place], [place] [address]Dr. Farhat Leal Monocytes/100 WBC (Bld) 14.1 % Critically high 1.7-12.0 [facility] Comment on above: Performed By: #### C BC ####[facility] Lcypfwwqdz6017[address] [place], [place] [address]Dr. Farhat Leal NEUT # 4.4 103/ul Normal 1.4-6.5 [facility] Comment on above: Performed By: #### C BC ####[facility] Zojetscvpc4469[address] [place], [place] [address]Dr. Farhat Leal Neutrophils/100 WBC (Bld) 54.2 % Normal 43.0-75.0 [facility] Comment on above: Performed By: #### C BC ####[facility] Xziwdutayt001[address] [place], [place] [address]Dr. Farhat Leal Platelet mean volume (Bld) [Entitic vol] 9.9 fL Normal 9.5-13.5 [facility] Comment on above: Performed By: #### C BC ####[facility] Cvesntisfi2014[address] [place], [place] [address]Dr. Farhat Leal PLT 224 103/ul Normal 150-450 [facility] Comment on above: Performed By: #### C BC ####[facility] Izldigapey42[address] [place], [place] [address]Dr. Farhat Leal RBC 4.11 106/ul Critically low 4.70-6.10 [facility] Comment on above: Performed By: #### C BC ####[facility] Dzttqhxxgr0786 [place] [address]Dr. Farhat Elvis WBC 8.2 103/ul Normal 4.0-11.0 [facility] Comment on above: Performed By: #### C BC ####[facility] Azrarwpwia7166[address] [place], [place] [address]Dr. Farhat Leal PROF CHEM 8 (BAS METB)on Anion gap [Moles/Vol] 9.6 mmol/L Normal [facility] Comment on above: Performed By: #### B MP ####[facility] Xsqctxtlrp768[address] [place], [place] [address]Dr. Farhat Leal Calcium [Mass/Vol] 8.6 mg/dL Normal 8.5-10.1 [facility] Comment on above: Performed By: #### B MP ####[facility] Nfxwotevlc7203[address] [place], [place] [address]Dr. Farhat Leal Chloride [Moles/Vol] 94 mmol/L Critically low 98-107 [facility] Comment on above: Performed By: #### B MP ####[facility] Rxcmvywmwt867718 [address] [place], [place] [address]Dr. Farhat Leal CO2 [Moles/Vol] 28.1 mmol/L Normal 21.0-32.0 [facility] Comment on above: Performed By: #### B MP ####[facility] Koedpclaxj9709[address] [place], [place] [address]Dr. Farhat Leal Creatinine [Mass/Vol] 1.91 mg/dL Critically high 0.70-1.30 [facility] Comment on above: Performed By: #### B MP ####[facility] Pmdglfrowo3025[address] [place], [place] [address]Dr. Farhat Leal EGFR-AF MALDIVIAN 42 mL/min/1.73m2 Critically low >=60 [facility] Comment on above: Performed By: #### B MP ####[facility] Qgottitwan6[address] [place] [address]Dr. Madelynlorri Elvis EGFR-NON AF MALDIVIAN 34 mL/min/1.73m2 Critically low >=60 [facility] Comment on above: Performed By: #### B MP ####[facility] Yloensruor8573[address] [place], [place] [address]Dr. Farhat Leal Glucose [Mass/Vol] 314 mg/dL Critically high 74-106 [facility] Comment on above: Performed By: #### B MP ####[facility] Jlskjuviqx8299[address] [place], [place] [address]Dr. Farhat Leal Potassium [Moles/Vol] 4.7 mmol/L Normal 3.5-5.1 [facility] Comment on above: Performed By: #### B MP ####[facility] Wpvjvaqpqf639[address] [place], [place] [address]Dr. Farhat Leal Sodium [Moles/Vol] 127 mmol/L Critically low 136-145 [facility] Comment on above: Performed By: #### B MP ####[facility] Xaidmjcrbn0527[address] [place], [place] [address]Dr. Farhat Leal Urea nitrogen [Mass/Vol] 79.0 mg/dL Critically high 7.0-18.0 [facility] Comment on above: Result Comment: repe ated Performed By: #### B MP ####[facility] Hpuztplvxi4048[address] [place], [place] [address]Dr. Farhat Leal Urea nitrogen/Creatinine [Mass ratio] 41.4 mg/mg Normal [facility] Comment on above: Performed By: #### B MP ####[facility] Digfkixfky877018 [address] [place], [place] [address]Dr. Farhat Leal PTT HEPARIN MONITORon 2021 aPTT Coag (Bld) [Time] 42.7 s Normal 39.5-54.2 [facility] Comment on above: Performed By: #### P TTHEP ####[facility] Cziyjudlgf3162[address] [place], [place] [address]Dr. Farhat Leal aPTT Coag (Bld) [Time] 56.7 s Critically high 39.5-54. 2 [facility] Comment on above: Performed By: #### P TTHEP ####[facility] Ndbntoybue766[address] [place], [place] [address]Dr. Farhat Leal CBC AUTO DIFFon 09-23-2021 BASO # 0.1 103/ul Normal 0.0-0.1 [facility] Comment on above: Performed By: #### C BC ####[facility] Tcfypwrgyi0487[address] [place], [place] [address]Dr. Farhat Leal Basophils/100 WBC (Bld) 0.6 % Normal 0.2-2.0 [facility] Comment on above: Performed By: #### C BC ####[facility] Rsrgbvxoal1833[address] [place], [place] [address]Dr. Farhat Leal EO # 0.2 103/ul Normal 0.0-0.7 [facility] Comment on above: Performed By: #### C BC ####[facility] Evemutsmbe035718 [address] [place], [place] [address]Dr. Farhat Leal Eosinophils/100 WBC (Bld) 2.6 % Normal 0.9-7.0 [facility] Comment on above: Performed By: #### C BC ####[facility] Qynjvuivbd1432[address] [place], [place] [address]Dr. Farhat Leal Erythrocyte distribution width (RBC) [Ratio] 12.4 % Normal 11.0-15.0 [facility] Comment on above: Performed By: #### C BC ####[facility] Pizrfhectm604[address] [place], [place] [address]Dr. Farhat Leal Hematocrit (Bld) [Volume fraction] 38.4 % Critically low 42.0-54.0 [facility] Comment on above: Performed By: #### C BC ####[facility] Tbrnwkcmdn9938[address] [place], [place] [address]Dr. Farhat Leal Hemoglobin (Bld) [Mass/Vol] 12.8 g/dL Critically low 14.0-18.0 [facility] Comment on above: Performed By: #### C BC ####[facility] Uqxxhmxuxb6387[address] [place], [place] [address]DrSkylar Leal IG # 0.06 10e3/ul Critically high 0.00-0.03 [facility] Comment on above: Performed By: #### C BC ####[facility] Mfqmsdzavp[address] [place] [address]DrSkylar Leal IG % 0.8 % Critically high 0.0-0.5 [facility] Comment on above: Performed By: #### C BC ####[facility] Lekytdhdjb78[address] [place] [address]DrSkylar Leal LYMPH # 1.5 103/ul Normal 1.2-3.8 [facility] Comment on above: Performed By: #### C BC ####[facility] Mjgxjxmevp0866 [place] [address]DrSkylar Leal Lymphocytes/100 WBC (Bld) 19.7 % Critically low 20.5-60.0 [facility] Comment on above: Performed By: #### C BC ####[facility] Tbtlftmzhz5689[address] [place], [place] [address]DrSkylar Leal MANUAL DIFF REQ NO Normal [facility] Comment on above: Performed By: #### C BC ####[facility] Qkdqbxgrqf8846[address] [place], [place] [address]DrSkylar Leal MCH (RBC) [Entitic mass] 31.6 pg Normal 25.9-34.0 [facility] Comment on above: Performed By: #### C BC ####[facility] K[address]uunfmny[address] [place] [address]DrSkylar Leal MCHC (RBC) [Mass/Vol] 33.3 g/dL Normal 29.9-35.2 [facility] Comment on above: Performed By: #### C BC ####[facility] Pszhttbdrj5596[address] [place], [place] [address]DrSkylar Leal MCV (RBC) [Entitic vol] 94.8 fL Critically high 80.0-94.0 [facility] Comment on above: Performed By: #### C BC ####[facility] Hlgwunbkjq535[address] [place], [place] [address]Dr. Farhat Leal MONO # 1.0 103/ul Critically high 0.3-0.8 [facility] Comment on above: Performed By: #### C BC ####[facility] Lmrqxaxwdz08[address] [place] [phone]. Farhat Leal Monocytes/100 WBC (Bld) 13.0 % Critically high 1.7-12.0 [facility] Comment on above: Performed By: #### C BC ####[facility] Xozihjagms0236 [place] [phone]. Farhat Leal NEUT # 4.9 103/ul Normal 1.4-6.5 [facility] Comment on above: Performed By: #### C BC ####[facility] Lmufhrklhf4539 [place] [phone] Farhat Leal Neutrophils/100 WBC (Bld) 63.3 % Normal 43.0-75.0 [facility] Comment on above: Performed By: #### C BC ####[facility] Vnhkosvrio4224[address] [place], [place] [address]Dr. Farhat eLal Platelet mean volume (Bld) [Entitic vol] 10.7 fL Normal 9.5-13.5 [facility] Comment on above: Performed By: #### C BC ####[facility] Skqxvgmtxk437[address] [place], [place] [id number]. Farhat Leal PLT 205 103/ul Normal 150-450 [facility] Comment on above: Performed By: #### C BC ####[facility] Iqlposvmpe7194 [place] [phone]. Farhat Leal RBC 4.05 106/ul Critically low 4.70-6.10 [facility] Comment on above: Performed By: #### C BC ####[facility] Czzkaodzjl6387 [place] [phone] Farhat Leal WBC 7.7 103/ul Normal 4.0-11.0 [facility] Comment on above: Performed By: #### C BC ####[facility] Sjivuswspv9194[address] [place], [place] [address]DrSkylar Leal PROF CHEM 8 (BAS METB)on Anion gap [Moles/Vol] 15.5 mmol/L Normal [facility] Comment on above: Performed By: #### B MP ####[facility] Kmkzwcgmhy7398[address] [place], [place] [address]Dr. Madelynlorri Leal Calcium [Mass/Vol] 9.1 mg/dL Normal 8.5-10.1 [facility] Comment on above: Performed By: #### B MP ####[facility] Hcjnmrfvyu0985[address] [place], [place] [address]Dr. Farhat Leal Chloride [Moles/Vol] 92 mmol/L Critically low 98-107 [facility] Comment on above: Performed By: #### B MP ####[facility] Wuqxwgjpqj3365[address] [place], [place] [address]Dr. Farhat Leal CO2 [Moles/Vol] 28.5 mmol/L Normal 21.0-32.0 [facility] Comment on above: Performed By: #### B MP ####[facility] Djstnertzv002418 [address] [place], [place] [address]Dr. Farhat Leal Creatinine [Mass/Vol] 1.84 mg/dL Critically high 0.70-1.30 [facility] Comment on above: Performed By: #### B MP ####[facility] Nqoskfmjtf663[address] [place], [place] [address]Dr. Farhat Leal EGFR-AF MALDIVIAN 44 mL/min/1.73m2 Critically low >=60 [facility] Comment on above: Performed By: #### B MP ####[facility] Taaniiwhph255118 [address] [place], [place] [address]Dr. Farhat Leal EGFR-NON AF MALDIVIAN 36 mL/min/1.73m2 Critically low >=60 [facility] Comment on above: Performed By: #### B MP ####[facility] Qonepfflxe7107[address] [place], [place] [address]Dr. Farhat Leal Glucose [Mass/Vol] 267 mg/dL Critically high 74-106 T [facility] Comment on above: Performed By: #### B MP ####[facility] Bcsfihpskp629018 [address] [place], [place] [address]Dr. Farhat Leal Potassium [Moles/Vol] 5.0 mmol/L Normal 3.5-5.1 [facility] Comment on above: Performed By: #### B MP ####[facility] Xthynueckh6478[address] [place], [place] [address]Dr. Farhat Leal Sodium [Moles/Vol] 131 mmol/L Critically low 136-145 Th [facility] Comment on above: Performed By: #### B MP ####[facility] Fjjksooxqj419818 [address] [place], [place] [address]Dr. Farhat Leal Urea nitrogen [Mass/Vol] 76.0 mg/dL Critically high 7.0-18.0 [facility] Comment on above: Performed By: #### B MP ####[facility] Fewvhkpvxp798218 [address] [place], [place] [address]Dr. Farhat Leal Urea nitrogen/Creatinine [Mass ratio] 41.3 mg/mg Normal [facility] Comment on above: Performed By: #### B MP ####[facility] Wqgvafjrzi3333[address] [place], [place] [address]Dr. Farhat Leal PTT HEPARIN MONITORon 2021 aPTT Coag (Bld) [Time] 57.2 s Critically high 39.5-54. 2 [facility] Comment on above: Performed By: #### P TTHEP ####[facility] Jxqptnnjxr519[address] [place], [place] [address]Dr. Farhat Leal aPTT Coag (Bld) [Time] 74.7 s Critically high 39.5-54. 2 [facility] Comment on above: Result Comment: repe ated Performed By: #### P TTHEP ####[facility] Opnjsqltii548018 [address] [place], [place] [address]Dr. Farhat Leal aPTT Coag (Bld) [Time] 45.5 s Normal 39.5-54.2 [facility] Comment on above: Performed By: #### P TTHEP ####[facility] Nhacychpfa3849[address] [place], [place] [address]Dr. Farhat Leal CBC AUTO DIFFon 09-22-2021 BASO # 0.1 103/ul Normal 0.0-0.1 [facility] Comment on above: Performed By: #### C BC ####[facility] Vltjwkitfb5638 [place] [address]Dr. Farhat Leal Basophils/100 WBC (Bld) 0.7 % Normal 0.2-2.0 [facility] Comment on above: Performed By: #### C BC ####[facility] Loyphjuenq3943 [place] [address]DrSkylar Leal EO # 0.3 103/ul Normal 0.0-0.7 [facility] Comment on above: Performed By: #### C BC ####[facility] Wykswqrmyn1672[address] [place], [place] [address]Dr. Farhat Leal Eosinophils/100 WBC (Bld) 3.2 % Normal 0.9-7.0 [facility] Comment on above: Performed By: #### C BC ####[facility] Nafjlueeia9513[address] [place], [place] [address]DrSkylar Leal Erythrocyte distribution width (RBC) [Ratio] 12.5 % Normal 11.0-15.0 [facility] Comment on above: Performed By: #### C BC ####[facility] Ndsdiefjlj7966[address] [place], [place] [address]Dr. Farhat Leal Hematocrit (Bld) [Volume fraction] 40.5 % Critically low 42.0-54.0 [facility] Comment on above: Performed By: #### C BC ####[facility] Gldrusxlbk8604[address] [place], [place] [address]Dr. Farhat Leal Hemoglobin (Bld) [Mass/Vol] 13.4 g/dL Critically low 14.0-18.0 [facility] Comment on above: Performed By: #### C BC ####[facility] Znscyxcyhy470[address] [place], [place] [address]DrSkylar Leal IG # 0.11 10e3/ul Critically high 0.00-0.03 [facility] Comment on above: Performed By: #### C BC ####[facility] Fwplgdxbcy6368[address] [place], [place] [address]Dr. Farhat Leal IG % 1.3 % Critically high 0.0-0.5 [facility] Comment on above: Performed By: #### C BC ####[facility] Vykscslbqd5542 [place] [address]DrSkylar Leal LYMPH # 1.7 103/ul Normal 1.2-3.8 [facility] Comment on above: Performed By: #### C BC ####[facility] Mopgbjwxvk2470 [place] [address]DrSkylar Leal Lymphocytes/100 WBC (Bld) 19.6 % Critically low 20.5-60.0 [facility] Comment on above: Performed By: #### C BC ####[facility] Wtkdigstaz9157[address] [place], [place] [address]DrSkylar Leal MANUAL DIFF REQ NO Normal [facility] Comment on above: Performed By: #### C BC ####[facility] Fwmifdbgax3184 [place] [address]DrSkylar Leal MCH (RBC) [Entitic mass] 31.1 pg Normal 25.9-34.0 [facility] Comment on above: Performed By: #### C BC ####[facility] Dzzpwrtehq5096[address] [place], [place] [address]DrSkylar Leal MCHC (RBC) [Mass/Vol] 33.1 g/dL Normal 29.9-35.2 [facility] Comment on above: Performed By: #### C BC ####[facility] Cedasiokkb7082 [place] [address]DrSkylar Leal MCV (RBC) [Entitic vol] 94.0 fL Normal 80.0-94.0 [facility] Comment on above: Performed By: #### C BC ####[facility] Dyyrdqhixn5012[address] [place], [place] [address]DrSkylar Leal MONO # 1.1 103/ul Critically high 0.3-0.8 [facility] Comment on above: Performed By: #### C BC ####[facility] Nqghzfrquc1807[address] [place], [place] [address]DrSkylar Leal Monocytes/100 WBC (Bld) 12.7 % Critically high 1.7-12.0 [facility] Comment on above: Performed By: #### C BC ####[facility] Kwxxrzzckj5618 [place] [address]DrSkylar Farhat Leal NEUT # 5.3 103/ul Normal 1.4-6.5 [facility] Comment on above: Performed By: #### C BC ####[facility] Gnnodxfzph8645 [place] [address]DrSkylar Farhat Leal Neutrophils/100 WBC (Bld) 62.5 % Normal 43.0-75.0 [facility] Comment on above: Performed By: #### C BC ####[facility] Dseavyrhzl264[address] [place], [place] [address]DrSkylar Farhat Elvis Platelet mean volume (Bld) [Entitic vol] 10.1 fL Normal 9.5-13.5 [facility] Comment on above: Performed By: #### C BC ####[facility] Tdqqktpqte6399[address] [place], [place] [address]DrSkylar Farhat Leal PLT 220 103/ul Normal 150-450 [facility] Comment on above: Performed By: #### C BC ####[facility] Slvhpxhcka4078[address] [place], [place] [address]DrSkylar Farhat Leal RBC 4.31 106/ul Critically low 4.70-6.10 [facility] Comment on above: Performed By: #### C BC ####[facility] Oqcwstopyk16[address] [place], [place] [id number] Farhat Elvis WBC 8.4 103/ul Normal 4.0-11.0 [facility] Comment on above: Performed By: #### C BC ####[facility] Yhqwgnjgqg092[address] [place], [place] [id number] Madelynlorri Leal PROF CHEM 8 (BAS METB)on Anion gap [Moles/Vol] 15.5 mmol/L Normal [facility] Comment on above: Performed By: #### B MP ####[facility] Bvpriujyjl3522[address] [place], [place] [address]Dr. Farhat Leal Calcium [Mass/Vol] 8.9 mg/dL Normal 8.5-10.1 [facility] Comment on above: Performed By: #### B MP ####[facility] Pwqvxsgcgq4133 [place] [address]Dr. Farhat Leal Chloride [Moles/Vol] 92 mmol/L Critically low 98-107 [facility] Comment on above: Performed By: #### B MP ####[facility] Nvsboskvql7363[address] [place], [place] [address]Dr. Farhat Leal CO2 [Moles/Vol] 25.7 mmol/L Normal 21.0-32.0 [facility] Comment on above: Performed By: #### B MP ####[facility] Xbbbnmudmv577[address] [place], [place] [address]Dr. Farhat Leal Creatinine [Mass/Vol] 1.85 mg/dL Critically high 0.70-1.30 [facility] Comment on above: Performed By: #### B MP ####[facility] Vjfluyzrwx273[address] [place], [place] [address]Dr. Farhat Leal EGFR-AF MALDIVIAN 43 mL/min/1.73m2 Critically low >=60 [facility] Comment on above: Performed By: #### B MP ####[facility] Puefewvjpd728[address] [place], [place] [address]Dr. Farhat Leal EGFR-NON AF MALDIVIAN 36 mL/min/1.73m2 Critically low >=60 [facility] Comment on above: Performed By: #### B MP ####[facility] Fylrqtwbxy6895 [place] [address]Dr. Farhat Leal Glucose [Mass/Vol] 410 mg/dL Critically high 74-106 [facility] Comment on above: Performed By: #### B MP ####[facility] Qhxvunywuu4192[address] [place], [place] [address]Dr. Farhat Leal Potassium [Moles/Vol] 5.2 mmol/L Critically high 3.5-5.1 [facility] Comment on above: Performed By: #### B MP ####[facility] Tmyncdsvld4766[address] [place], [place] [address]Dr. Farhat Leal Sodium [Moles/Vol] 128 mmol/L Critically low 136-145 [facility] Comment on above: Performed By: #### B MP ####[facility] Efjfmarymp486[address] [place], [place] [address]Dr. Farhat Leal Urea nitrogen [Mass/Vol] 75.0 mg/dL Critically high 7.0-18.0 [facility] Comment on above: Performed By: #### B MP ####[facility] Rwlvatpjwo4016[address] [place], [place] [address]Dr. Farhat Leal Urea nitrogen/Creatinine [Mass ratio] 40.5 mg/mg Normal [facility] Comment on above: Performed By: #### B MP ####[facility] Getoadsgaf565[address] [place], [place] [address]Dr. Farhat Leal PTT HEPARIN MONITORon 2021 aPTT Coag (Bld) [Time] 51.2 s Normal 39.5-54.2 [facility] Comment on above: Performed By: #### P TTHEP ####[facility] Cyrzfphpyq5358[address] [place], [place] [address]Dr. Farhat Leal aPTT Coag (Bld) [Time] 55.6 s Critically high 39.5-54. 2 [facility] Comment on above: Performed By: #### P TTHEP ####[facility] Lactxnighi9915[address] [place], [place] [address]Dr. Farhat Leal aPTT Coag (Bld) [Time] 46.1 s Normal 39.5-54.2 [facility] Comment on above: Performed By: #### P TTHEP ####[facility] Opxkkowmoz5337[address] [place], [place] [address]Dr. Farhat Leal aPTT Coag (Bld) [Time] 53.8 s Normal 39.5-54.2 [facility] Comment on above: Performed By: #### P TTHEP ####[facility] Hfjylmbsjc3006[address] [place], [place] [address]Dr. Farhat Leal CBC AUTO DIFFon 09-21-2021 BASO # 0.1 103/ul Normal 0.0-0.1 [facility] Comment on above: Performed By: #### C BC ####[facility] Nxkgsvsmgs1488 [place] [address]Dr. Farhat Leal Basophils/100 WBC (Bld) 0.8 % Normal 0.2-2.0 [facility] Comment on above: Performed By: #### C BC ####[facility] Idxotlcuyi545[address] [place], [place] [address]Dr. Farhat Leal EO # 0.4 103/ul Normal 0.0-0.7 [facility] Comment on above: Performed By: #### C BC ####[facility] Lewtwbdfzn3996[address] [place], [place] [address]Dr. Farhat Leal Eosinophils/100 WBC (Bld) 4.3 % Normal 0.9-7.0 [facility] Comment on above: Performed By: #### C BC ####[facility] Bmlptxhcwq95101[address] [place], [place] [address]Dr. Farhat Leal Erythrocyte distribution width (RBC) [Ratio] 12.5 % Normal 11.0-15.0 [facility] Comment on above: Performed By: #### C BC ####[facility] Jdzqztslmw9355[address] [place], [place] [address]Dr. Farhat Leal Hematocrit (Bld) [Volume fraction] 40.8 % Critically low 42.0-54.0 [facility] Comment on above: Performed By: #### C BC ####[facility] Rwjpfansmq9475[address] [place], [place] [address]Dr. Farhat Leal Hemoglobin (Bld) [Mass/Vol] 13.5 g/dL Critically low 14.0-18.0 [facility] Comment on above: Performed By: #### C BC ####[facility] [id number] [place], [place] [address]Dr. Madelynlorri Elvis IG # 0.10 10e3/ul Critically high 0.00-0.03 [facility] Comment on above: Performed By: #### C BC ####[facility] [id number] [place], [place] [address]Dr. Farhat eLal IG % 1.2 % Critically high 0.0-0.5 [facility] Comment on above: Performed By: #### C BC ####[facility] [address] [place] [address]Dr. Farhat Leal LYMPH # 1.3 103/ul Normal 1.2-3.8 [facility] Comment on above: Performed By: #### C BC ####[facility] [address] [address]Dr. Madelynlorri Leal Lymphocytes/100 WBC (Bld) 15.4 % Critically low 20.5-60.0 [facility] Comment on above: Performed By: #### C BC ####[facility] [facility] [address] [place] [address]Dr. Farhat Leal MANUAL DIFF REQ NO Normal [facility] Comment on above: Performed By: #### C BC ####[facility] Flgcldkbvf75[address] [place] [address]Dr. Farhat Elvis MCH (RBC) [Entitic mass] 31.0 pg Normal 25.9-34.0 [facility] Comment on above: Performed By: #### C BC ####[facility] Ormcjjbouw[address] [place] [address]Dr. Farhat Elvis MCHC (RBC) [Mass/Vol] 33.1 g/dL Normal 29.9-35.2 [facility] Comment on above: Performed By: #### C BC ####[facility] Zbvzgikvss23[address] [place] [address]DrSkylar Leal MCV (RBC) [Entitic vol] 93.8 fL Normal 80.0-94.0 [facility] Comment on above: Performed By: #### C BC ####[facility] Necvsjcbyg[address] [place] [address]DrSkylar Leal MONO # 1.2 103/ul Critically high 0.3-0.8 [facility] Comment on above: Performed By: #### C BC ####[facility] Qarbzgbkwk9[address] [place] [address]Dr. Farhat Leal Monocytes/100 WBC (Bld) 13.6 % Critically high 1.7-12.0 [facility] Comment on above: Performed By: #### C BC ####[facility] Hznjtftxgb6704 [place] [address]Dr. Farhat Leal NEUT # 5.5 103/ul Normal 1.4-6.5 [facility] Comment on above: Performed By: #### C BC ####[facility] Bnvowsduma9[address] [place] [address]Dr. Farhat Leal Neutrophils/100 WBC (Bld) 64.7 % Normal 43.0-75.0 [facility] Comment on above: Performed By: #### C BC ####[facility] Tgiabigyob9[address] [place] [address]Dr. Farhat Leal Platelet mean volume (Bld) [Entitic vol] 9.8 fL Normal 9.5-13.5 [facility] Comment on above: Performed By: #### C BC ####[facility] Fxozovozij[address] [place] [address]Dr. aFrhat Leal PLT 206 103/ul Normal 150-450 [facility] Comment on above: Performed By: #### C BC ####[facility] Acmuppzanf[address] [place], [place] [address]Dr. Farhat Leal RBC 4.35 106/ul Critically low 4.70-6.10 [facility] Comment on above: Performed By: #### C BC ####[facility] Jwfqcojhai4[address] [place] [address]Dr. Farhat Leal WBC 8.4 103/ul Normal 4.0-11.0 [facility] Comment on above: Performed By: #### C BC ####[facility] Zkpafzqiit9[address] [place] [address]Dr. Farhat Elvis PROF CHEM 8 (BAS METB)on Anion gap [Moles/Vol] 12.3 mmol/L Normal [facility] Comment on above: Performed By: #### B MP ####[facility] Rupwfeigqy6[address] [place], [place] [id number]. Farhat Leal Calcium [Mass/Vol] 8.6 mg/dL Normal 8.5-10.[address] [facility] Comment on above: Performed By: #### B MP ####[facility] Xiogpsggab3835 [place] [address]Dr. Farhat Leal Chloride [Moles/Vol] 94 mmol/L Critically low 98-107 [facility] Comment on above: Performed By: #### B MP ####[facility] Vvurhsdfmc6[address] [place], [place] [address]Dr. Farhat Leal CO2 [Moles/Vol] 30.8 mmol/L Normal 21.0-32.0 [facility] Comment on above: Performed By: #### B MP ####[facility] Lbktcizbnb030[address] [place], [place] [address]Dr. Farhat Leal Creatinine [Mass/Vol] 1.99 mg/dL Critically high 0.70-1.30 [facility] Comment on above: Performed By: #### B MP ####[facility] Zruuycgcpy07[address] [place], [place] [address]Dr. Farhat Leal EGFR-AF MALDIVIAN 40 mL/min/1.73m2 Critically low >=60 [facility] Comment on above: Performed By: #### B MP ####[facility] Exetxkdamf4062[address] [place], [place] [address]Dr. Farhat Leal EGFR-NON AF MALDIVIAN 33 mL/min/1.73m2 Critically low >=60 [facility] Comment on above: Performed By: #### B MP ####[facility] Vpeyjiiftx6798[address] [place], [place] [address]Dr. Farhat Leal Glucose [Mass/Vol] 264 mg/dL Critically high 74-106 [facility] Comment on above: Performed By: #### B MP ####[facility] Wkwjsakodj1714[address] [place], [place] [address]Dr. Farhat Leal Potassium [Moles/Vol] 5.1 mmol/L Normal 3.5-5.1 [facility] Comment on above: Performed By: #### B MP ####[facility] Usjjxskgtb560[address] [place], [place] [address]Dr. Farhat Leal Sodium [Moles/Vol] 132 mmol/L Critically low 136-145 [facility] Comment on above: Performed By: #### B MP ####[facility] Xxretofteg362[address] [place], [place] [address]Dr. Farhat Leal Urea nitrogen [Mass/Vol] 72.0 mg/dL Critically high 7.0-18.0 [facility] Comment on above: Performed By: #### B MP ####[facility] Aceqrlyphd2726[address] [place], [place] [address]Dr. Farhat Leal Urea nitrogen/Creatinine [Mass ratio] 36.2 mg/mg Normal [facility] Comment on above: Performed By: #### B MP ####[facility] Ftdijngsob1854[address] [place], [place] [address]Dr. Farhat Leal PTT HEPARIN MONITORon 2021 aPTT Coag (Bld) [Time] 45.3 s Normal 39.5-54.2 [facility] Comment on above: Performed By: #### P TTHEP ####[facility] Rhskuusfkx0799[address] [place], [place] [address]Dr. Madelynlorri Elvis aPTT Coag (Bld) [Time] 68.0 s Critically high 39.5-54. 2 [facility] Comment on above: Performed By: #### P TTHEP ####[facility] Smcwodotrh470[address] [place], [place] [address]Dr. Farhat Leal aPTT Coag (Bld) [Time] 69.4 s Critically high 39.5-54. 2 [facility] Comment on above: Performed By: #### P TTHEP ####[facility] Ozdmnpkidg3639[address] [place], [place] [address]Dr. Farhat Leal aPTT Coag (Bld) [Time] 53.5 s Normal 39.5-54.2 [facility] Comment on above: Performed By: #### P TTHEP ####[facility] Ckkbbifyoi5998[address] [place], [place] [address]Dr. Farhat Leal aPTT Coag (Bld) [Time] 126.9 s Critically high 39.5-54. 2 [facility] Comment on above: Performed By: #### P TTHEP ####[facility] Hpdjesgeih5175[address] [place], [place] [address]Dr. Farhat Leal CBC AUTO DIFFon 09-20-2021 BASO # 0.1 103/ul Normal 0.0-0.1 [facility] Comment on above: Performed By: #### C BC ####[facility] Aneazfvdlr075[address] [place], [place] [address]Dr. Farhat Leal Basophils/100 WBC (Bld) 0.7 % Normal 0.2-2.0 [facility] Comment on above: Performed By: #### C BC ####[facility] Hqobkbssjc1486[address] [place], [place] [address]Dr. Farhat Leal EO # 0.2 103/ul Normal 0.0-0.7 [facility] Comment on above: Performed By: #### C BC ####[facility] Jksdiovvvn179[address] [place], [place] [address]Dr. Farhat Leal Eosinophils/100 WBC (Bld) 3.2 % Normal 0.9-7.0 [facility] Comment on above: Performed By: #### C BC ####[facility] Dpxioehuqq703[address] [place], [place] [address]Dr. Farhat Leal Erythrocyte distribution width (RBC) [Ratio] 12.4 % Normal 11.0-15.0 [facility] Comment on above: Performed By: #### C BC ####[facility] Nukldepdlq4[address] [place], [place] [address]Dr. Farhat Leal Hematocrit (Bld) [Volume fraction] 40.1 % Critically low 42.0-54.0 [facility] Comment on above: Performed By: #### C BC ####[facility] Lamuttuvfl5555[address] [place], [place] [address]Dr. Farhat Leal Hemoglobin (Bld) [Mass/Vol] 13.4 g/dL Critically low 14.0-18.0 [facility] Comment on above: Performed By: #### C BC ####[facility] J[address]xzvcrjx9[address] [place] [phone]. Farhat Leal IG # 0.08 10e3/ul Critically high 0.00-0.03 [facility] Comment on above: Performed By: #### C BC ####[facility] Gkfvfobtww1022 [place] [phone]. Farhat Elvis IG % 1.1 % Critically high 0.0-0.5 [facility] Comment on above: Performed By: #### C BC ####[facility] Lxdpsdvzdh8[address] [place] [address]Dr. Madelynlorri Elvis LYMPH # 1.3 103/ul Normal 1.2-3.8 [facility] Comment on above: Performed By: #### C BC ####[facility] Kthltirdbm9355 [place] [address]Dr. Farhat Leal Lymphocytes/100 WBC (Bld) 17.3 % Critically low 20.5-60.0 [facility] Comment on above: Performed By: #### C BC ####[facility] Mvfakpgyko7[address] [place] [address]Dr. Madelynlorri Leal MANUAL DIFF REQ NO Normal [facility] Comment on above: Performed By: #### C BC ####[facility] Ilmycmlxkd1834 [place] [address]Dr. Farhat Elvis MCH (RBC) [Entitic mass] 31.2 pg Normal 25.9-34.0 [facility] Comment on above: Performed By: #### C BC ####[facility] Puywbmorpk87[address] [place] [address]Dr. Farhat Elvis MCHC (RBC) [Mass/Vol] 33.4 g/dL Normal 29.9-35.2 [facility] Comment on above: Performed By: #### C BC ####[facility] Aawipxggop88[address] [place] [address]Dr. Farhat Elvis MCV (RBC) [Entitic vol] 93.3 fL Normal 80.0-94.0 [facility] Comment on above: Performed By: #### C BC ####[facility] Xowmukpgcf1128 [place] [phone]. Farhat Leal MONO # 0.9 103/ul Critically high 0.3-0.8 [facility] Comment on above: Performed By: #### C BC ####[facility] Hfhfamnopz7064 [place] [phone]. Farhat Leal Monocytes/100 WBC (Bld) 12.4 % Critically high 1.7-12.0 [facility] Comment on above: Performed By: #### C BC ####[facility] Yiurecdrrd[address] [place] [phone]. Farhat Leal NEUT # 4.7 103/ul Normal 1.4-6.5 [facility] Comment on above: Performed By: #### C BC ####[facility] Zuzvpadckx7134 [place] [phone]. Farhat Leal Neutrophils/100 WBC (Bld) 65.3 % Normal 43.0-75.0 [facility] Comment on above: Performed By: #### C BC ####[facility] Fdflbmgjat0948 [place] [phone]. Farhat Leal Platelet mean volume (Bld) [Entitic vol] 9.9 fL Normal 9.5-13.5 [facility] Comment on above: Performed By: #### C BC ####[facility] Irxpattbfu7058 [place] [phone]. Farhat Leal PLT 180 103/ul Normal 150-450 [facility] Comment on above: Performed By: #### C BC ####[facility] Xwfhcdsgsx8207 [place] [phone]. Farhat Leal RBC 4.30 106/ul Critically low 4.70-6.10 [facility] Comment on above: Performed By: #### C BC ####[facility] Niyzbrtsuy9418 [place] [phone]. Farhat Leal WBC 7.2 103/ul Normal 4.0-11.0 [facility] Comment on above: Performed By: #### C BC ####[facility] Suvjccrfzw2449 [place] [phone]. Farhat Leal PTT HEPARIN MONITORon 2021 aPTT Coag (Bld) [Time] 26.7 s Critically low 39.5-54.2 [facility] Comment on above: Performed By: #### P TTHEP ####[facility] Lzfsgadvwo4124[address] [place], [place] [address]Dr. Farhat Leal aPTT Coag (Bld) [Time] 121.0 s Critically high 39.5-54. 2 [facility] Comment on above: Performed By: #### P TTHEP ####[facility] Pzvpmbpjyn437[address] [place], [place] [address]Dr. Farhat Leal aPTT Coag (Bld) [Time] 27.6 s Critically low 39.5-54.2 [facility] Comment on above: Performed By: #### P TTHEP ####[facility] Gmqgpjmlnz1533[address] [place], [place] [address]Dr. Farhat Leal aPTT Coag (Bld) [Time] 139.0 s Critically high 39.5-54. 2 [facility] Comment on above: Performed By: #### P TTHEP ####[facility] Spvmhgzkdj5917[address] [place], [place] [address]Dr. Farhat Leal CBC AUTO DIFFon 09-19-2021 BASO # 0.0 103/ul Normal 0.0-0.1 [facility] Comment on above: Performed By: #### C BC ####[facility] Ynkebrdxuj0616[address] [place], [place] [address]Dr. Farhat Leal Basophils/100 WBC (Bld) 0.5 % Normal 0.2-2.0 [facility] Comment on above: Performed By: #### C BC ####[facility] Trehahmrzn4656[address] [place], [place] [address]Dr. Farhat Leal EO # 0.2 103/ul Normal 0.0-0.7 [facility] Comment on above: Performed By: #### C BC ####[facility] Xzhjydtjbw75[address] [place], [place] [address]DrSkylar Leal Eosinophils/100 WBC (Bld) 2.6 % Normal 0.9-7.0 [facility] Comment on above: Performed By: #### C BC ####[facility] Sfyxtiazxw5933[address] [place], [place] [address]Dr. Farhat Leal Erythrocyte distribution width (RBC) [Ratio] 12.5 % Normal 11.0-15.0 [facility] Comment on above: Performed By: #### C BC ####[facility] Jzedlnuzvo4995[address] [place], [place] [address]Dr. Farhat Elvis Hematocrit (Bld) [Volume fraction] 39.2 % Critically low 42.0-54.0 [facility] Comment on above: Performed By: #### C BC ####[facility] Ttomeywaha4327[address] [place], [place] [address]Dr. Madelynlorri Elvis Hemoglobin (Bld) [Mass/Vol] 13.3 g/dL Critically low 14.0-18.0 [facility] Comment on above: Performed By: #### C BC ####[facility] Utfiqwwdyl616[address] [place], [place] [address]Dr. Madelynlorri Elvis IG # 0.08 10e3/ul Critically high 0.00-0.03 [facility] Comment on above: Performed By: #### C BC ####[facility] Lrqlctwmra6449[address] [place], [place] [address]Dr. Farhat Leal IG % 0.9 % Critically high 0.0-0.5 [facility] Comment on above: Performed By: #### C BC ####[facility] Exyhynwoyz8197[address] [place], [place] [address]DrSkylar Leal LYMPH # 1.5 103/ul Normal 1.2-3.8 [facility] Comment on above: Performed By: #### C BC ####[facility] Psgxtwiikk1963[address] [place], [place] [address]Dr. Farhat Leal Lymphocytes/100 WBC (Bld) 17.2 % Critically low 20.5-60.0 [facility] Comment on above: Performed By: #### C BC ####[facility] Rlclgzgeqn6877[address] [place], [place] [address]Dr. Farhat Leal MANUAL DIFF REQ NO Normal [facility] Comment on above: Performed By: #### C BC ####[facility] Treilfoaql6367 [place] [address]DrSkylar Farhat Elvis MCH (RBC) [Entitic mass] 31.7 pg Normal 25.9-34.0 [facility] Comment on above: Performed By: #### C BC ####[facility] Nunzghnnga3044[address] [place], [place] [address]Dr. Farhat Elvis MCHC (RBC) [Mass/Vol] 33.9 g/dL Normal 29.9-35.2 [facility] Comment on above: Performed By: #### C BC ####[facility] Jdllgucshs7389[address] [place], [place] [address]DrSkylar Madelynlorri Leal MCV (RBC) [Entitic vol] 93.3 fL Normal 80.0-94.0 [facility] Comment on above: Performed By: #### C BC ####[facility] Npgolazolp9787[address] [place], [place] [address]DrSkylar Leal MONO # 1.2 103/ul Critically high 0.3-0.8 [facility] Comment on above: Performed By: #### C BC ####[facility] Bqttlwifdl4206[address] [place], [place] [address]Dr. Farhat Leal Monocytes/100 WBC (Bld) 13.7 % Critically high 1.7-12.0 [facility] Comment on above: Performed By: #### C BC ####[facility] Cokkkypqpz67[address] [place], [place] [address]DrSkylar Leal NEUT # 5.5 103/ul Normal 1.4-6.5 [facility] Comment on above: Performed By: #### C BC ####[facility] Khenzznyme1834[address] [place], [place] [address]DrSkylar Leal Neutrophils/100 WBC (Bld) 65.1 % Normal 43.0-75.0 [facility] Comment on above: Performed By: #### C BC ####[facility] Vosayquaar232[address] [place], [place] [address]DrSkylar Leal Platelet mean volume (Bld) [Entitic vol] 9.6 fL Normal 9.5-13.5 [facility] Comment on above: Performed By: #### C BC ####[facility] Gquowdscxe98[address] [place] [address]Dr. Farhat Leal PLT 163 103/ul Normal 150-450 [facility] Comment on above: Performed By: #### C BC ####[facility] Scdffxlzyu5599 [place] [address]Dr. Farhat Leal RBC 4.20 106/ul Critically low 4.70-6.10 [facility] Comment on above: Performed By: #### C BC ####[facility] Znffkbkbpo3888 [place] [address]Dr. Farhat Leal WBC 8.4 103/ul Normal 4.0-11.0 [facility] Comment on above: Performed By: #### C BC ####[facility] Hxwkwtvnbo266[address] [place], [place] [address]Dr. Farhat Leal POINT OF CARE GLUCOSEon Glucose [Mass/Vol] 300 mg/dL Critically high 74-106 [facility] Comment on above: Performed By: #### P OCGLUC ####[facility] Trldjzlvsd192[address] [place], [place] [address]Dr. Farhat Leal POTASSIUMon 09-19-2021 Potassium [Moles/Vol] 4.9 mmol/L Normal 3.5-5.1 [facility] Comment on above: Performed By: #### K ####[facility] Vgdtrdpatw8[address] [place], [place] [address]Dr. Farhat Leal PTT HEPARIN MONITORon 2021 aPTT Coag (Bld) [Time] 23.4 s Critically low 39.5-54.2 [facility] Comment on above: Result Comment: repe ated Performed By: #### P TTHEP ####[facility] Lobhtuyklq122[address] [place], [place] [address]Dr. Farhat Elvis aPTT Coag (Bld) [Time] 101.2 s Critically high 39.5-54. 2 [facility] Comment on above: Performed By: #### P TTHEP ####[facility] Udlxkbbmca5[address] [place], [place] [address]Dr. Farhat Elvis aPTT Coag (Bld) [Time] 81.0 s Critically high 39.5-54. 2 [facility] Comment on above: Result Comment: Test Repeated. Critical Value Verified Performed By: #### P TTHEP ####[facility] Wydhrqtvnl8[address] [place], [place] [address]Dr. Farhat Elvis CBC AUTO DIFFon 09-18-2021 BASO # 0.0 103/ul Normal 0.0-0.1 [facility] Comment on above: Performed By: #### C BC ####[facility] Qzavykgbei15[address] [place], [place] [address]Dr. Farhat Leal Basophils/100 WBC (Bld) 0.4 % Normal 0.2-2.0 [facility] Comment on above: Performed By: #### C BC ####[facility] Qlytpvzpkz395[address] [place], [place] [address]Dr. Farhat Leal EO # 0.1 103/ul Normal 0.0-0.7 [facility] Comment on above: Performed By: #### C BC ####[facility] Oenqrwcdax3[address] [place], [place] [address]Dr. Farhat Leal Eosinophils/100 WBC (Bld) 0.8 % Critically low 0.9-7.0 [facility] Comment on above: Performed By: #### C BC ####[facility] Bbpujbesvm98[address] [place], [place] [address]Dr. Farhat Leal Erythrocyte distribution width (RBC) [Ratio] 12.4 % Normal 11.0-15.0 [facility] Comment on above: Performed By: #### C BC ####[facility] Gxndcuxzuw4168[address] [place], [place] [address]Dr. Farhat Leal Hematocrit (Bld) [Volume fraction] 41.7 % Critically low 42.0-54.0 [facility] Comment on above: Performed By: #### C BC ####[facility] Sengjxsnxy[address]74 [place] [phone]. Farhat Leal Hemoglobin (Bld) [Mass/Vol] 14.1 g/dL Normal 14.0-18.0 [facility] Comment on above: Performed By: #### C BC ####[facility] Mcxczgejdj7177 [place] [phone]. Farhat Leal IG # 0.06 10e3/ul Critically high 0.00-0.03 The [facility] Comment on above: Performed By: #### C BC ####[facility] Ntnuooofub3112 [place] [phone]. Farhat Leal IG % 0.6 % Critically high 0.0-0.5 [facility] Comment on above: Performed By: #### C BC ####[facility] Hmligebczp9[address] [place] [address]Dr. Farhat Leal LYMPH # 0.6 103/ul Critically low 1.2-3.8 The [facility] Comment on above: Performed By: #### C BC ####[facility] Vhpiydpdmk6272 [place] [address]Dr. Farhat Leal Lymphocytes/100 WBC (Bld) 6.5 % Critically low 20.5-60.0 [facility] Comment on above: Performed By: #### C BC ####[facility] Qgxzyapzst4680 [place] [address]Dr. Farhat Leal MANUAL DIFF REQ NO Normal [facility] Comment on above: Performed By: #### C BC ####[facility] Wmofyvklkx0441 [place] [address]Dr. Farhat Leal MCH (RBC) [Entitic mass] 31.6 pg Normal 25.9-34.0 [facility] Comment on above: Performed By: #### C BC ####[facility] A[address]qjnqqlq9964[address] [place], [place] [address]Dr. Farhat Leal MCHC (RBC) [Mass/Vol] 33.8 g/dL Normal 29.9-35.2 [facility] Comment on above: Performed By: #### C BC ####[facility] Pgqvwrjhnl0631 [place] [phone]. Farhat Leal MCV (RBC) [Entitic vol] 93.5 fL Normal 80.0-94.0 [facility] Comment on above: Performed By: #### C BC ####[facility] Egjsydcvfz7721 [place] [phone]. Farhat Leal MONO # 1.0 103/ul Critically high 0.3-0.8 [facility] Comment on above: Performed By: #### C BC ####[facility] Pmqzpiaprp8782 [place] [phone]. Farhat Leal Monocytes/100 WBC (Bld) 10.4 % Normal 1.7-12.0 [facility] Comment on above: Performed By: #### C BC ####[facility] Wbuqxmuujo0572 [place] [phone]. Farhat Leal NEUT # 7.8 103/ul Critically high 1.4-6.5 [facility] Comment on above: Performed By: #### C BC ####[facility] Pccqbbpgmh0075 [place] [phone]. Farhat Leal Neutrophils/100 WBC (Bld) 81.3 % Critically high 43.0-75.0 [facility] Comment on above: Performed By: #### C BC ####[facility] Okraqbdemf6638 [place] [phone]. Farhat Leal Platelet mean volume (Bld) [Entitic vol] 9.9 fL Normal 9.5-13.5 [facility] Comment on above: Performed By: #### C BC ####[facility] Zcunjtxpwh4614 [place] [phone]. Farhat Leal PLT 169 103/ul Normal 150-450 [facility] Comment on above: Performed By: #### C BC ####[facility] Ukmvbvabms1708 [place] [phone]. Farhat Leal RBC 4.46 106/ul Critically low 4.70-6.10 [facility] Comment on above: Performed By: #### C BC ####[facility] Eyjzsvhfsj2178 [place] [phone]. Farhat Leal WBC 9.6 103/ul Normal 4.0-11.0 [facility] Comment on above: Performed By: #### C BC ####[facility] Zdurtnljye5465 [place] [phone]. Farhat Leal BASO # 0.0 103/ul Normal 0.0-0.1 [facility] Comment on above: Performed By: #### C BC ####[facility] Hiosennwnk4618 [place] [phone]. Farhat Leal Basophils/100 WBC (Bld) 0.4 % Normal 0.2-2.0 [facility] Comment on above: Performed By: #### C BC ####[facility] Onbkcqryxd9068 [place] [phone]. Farhat Leal EO # 0.1 103/ul Normal 0.0-0.7 [facility] Comment on above: Performed By: #### C BC ####[facility] Ikbzuucwii1521 [place] [phone]. Farhat Leal Eosinophils/100 WBC (Bld) 1.1 % Normal 0.9-7.0 [facility] Comment on above: Performed By: #### C BC ####[facility] C[address]ssjwxg[address] [place], [place] [id number]. Farhat Leal Erythrocyte distribution width (RBC) [Ratio] 12.6 % Normal 11.0-15.0 [facility] Comment on above: Performed By: #### C BC ####[facility] Kdrculyhyz2682 [place] [phone]. Farhat Leal Hematocrit (Bld) [Volume fraction] 40.8 % Critically low 42.0-54.0 [facility] Comment on above: Performed By: #### C BC ####[facility] Jzfqpzudfo1527 [place] [phone]. Farhat Leal Hemoglobin (Bld) [Mass/Vol] 13.6 g/dL Critically low 14.0-18.0 [facility] Comment on above: Performed By: #### C BC ####[facility] Ndmbgpobwn2658 [place] [phone]. Farhat Leal IG # 0.08 10e3/ul Critically high 0.00-0.03 [facility] Comment on above: Performed By: #### C BC ####[facility] Bkvxhordbq0832 [place] [phone]. Farhat Leal IG % 0.9 % Critically high 0.0-0.5 [facility] Comment on above: Performed By: #### C BC ####[facility] Noecjpfvlt0583 [place] [phone]. Farhat Elvis LYMPH # 0.8 103/ul Critically low 1.2-3.8 [facility] Comment on above: Performed By: #### C BC ####[facility] Ggmmyfqmke56[address] [place] [address]Dr. Farhat Leal Lymphocytes/100 WBC (Bld) 8.7 % Critically low 20.5-60.0 [facility] Comment on above: Performed By: #### C BC ####[facility] Ithcjsoara2250 [place] [address]Dr. Farhat Leal MANUAL DIFF REQ NO Normal [facility] Comment on above: Performed By: #### C BC ####[facility] Xunshyofwu101[address] [place] [address]Dr. Farhat Leal MCH (RBC) [Entitic mass] 31.6 pg Normal 25.9-34.0 [facility] Comment on above: Performed By: #### C BC ####[facility] Nqerthoejl6648 [place] [address]Dr. Farhat Leal MCHC (RBC) [Mass/Vol] 33.3 g/dL Normal 29.9-35.2 [facility] Comment on above: Performed By: #### C BC ####[facility] [address] [place] [address]Dr. Farhat Leal MCV (RBC) [Entitic vol] 94.9 fL Critically high 80.0-94.0 [facility] Comment on above: Performed By: #### C BC ####[facility] X[address]lurav[address] [place] [phone]. Farhat Leal MONO # 1.0 103/ul Critically high 0.3-0.8 The [facility] Comment on above: Performed By: #### C BC ####[facility] Rqdwbdvxgb36[address] [place] [phone]. Farhat Leal Monocytes/100 WBC (Bld) 11.3 % Normal 1.7-12.0 [facility] Comment on above: Performed By: #### C BC ####[facility] Vyswlcxdbj3[address] [place] [phone]. Farhat Leal NEUT # 6.9 103/ul Critically high 1.4-6.5 The [facility] Comment on above: Performed By: #### C BC ####[facility] Yxrzngh[address] [place] [phone]. Farhat Leal Neutrophils/100 WBC (Bld) 77.6 % Critically high 43.0-75.0 [facility] Comment on above: Performed By: #### C BC ####[facility] X[address]zporce46[address] [place] [phone]. Farhat Leal Platelet mean volume (Bld) [Entitic vol] 9.7 fL Normal 9.5-13.5 [facility] Comment on above: Performed By: #### C BC ####[facility] Nckrvdwogc[address] [place] [phone]. Farhat Leal PLT 171 103/ul Normal 150-450 [facility] Comment on above: Performed By: #### C BC ####[facility] Rjfoxdopsu23[address] [place] [phone]. Farhat Leal RBC 4.30 106/ul Critically low 4.70-6.10 The [facility] Comment on above: Performed By: #### C BC ####[facility] Z[address]vervudh[address] [place] [phone]. Farhat Leal WBC 8.9 103/ul Normal 4.0-11.0 [facility] Comment on above: Performed By: #### C BC ####[facility] Inxc[address]vnp[address] [place] [address]Dr. Farhat Leal Covid-19 PCR (CVDTB)on SARS-CoV-2 (COVID-19) RNA JOSH+probe Ql (Unsp spec) Not detected Normal NOT DETECTED [facility] Comment on above: Result Comment: When [...] for this test is supported by the [employer] Sprayer of Health and Human Service's declaration that [...] be used). Performed By: #### C VDTBH ####[facility] [address]xtkgpww[address] [place] [address]Dr. Farhat Leal PROF 14(COMP METB)on 022 Albumin [Mass/Vol] 2.6 g/dL Critically low 3.4-5.0 Th [facility] Comment on above: Performed By: #### C MP ####[facility] [address]spfwv4[address] [place] [address]Dr. Farhat Leal Albumin/Globulin [Mass ratio] 0.7 {ratio} Normal [facility] Comment on above: Performed By: #### C MP ####[facility] Ahltopowqq[address] [place] [address]DrSkylar Leal ALP [Catalytic activity/Vol] 88 U/L Normal 46-116 [facility] Comment on above: Performed By: #### C MP ####[facility] Sitpymqesv[address] [place] [address]Dr. Farhat Leal ALT [Catalytic activity/Vol] 15 U/L Critically low 16-63 [facility] Comment on above: Performed By: #### C MP ####[facility] [address]wqfzjve[address] [place] [phone]. Farhat Leal Anion gap [Moles/Vol] 11.7 mmol/L Normal Th [facility] Comment on above: Performed By: #### C MP ####[facility] Xqxxfanvcy4058 [place] [phone]. Farhat Leal AST [Catalytic activity/Vol] 25 U/L Normal 15-37 [facility] Comment on above: Performed By: #### C MP ####[facility] [address] [place], [place] [address]Dr. Farhat Leal Bilirubin [Mass/Vol] 0.6 mg/dL Normal 0.2-1.0 [facility] Comment on above: Performed By: #### C MP ####[facility] [address] [place], [place] [address]Dr. Farhat Leal Calcium [Mass/Vol] 8.9 mg/dL Normal 8.5-10.1 [facility] Comment on above: Performed By: #### C MP ####[facility] [address]ww[address]cvh[address] [place], [place] [address]Dr. Farhat Leal Chloride [Moles/Vol] 93 mmol/L Critically low 98-107 [facility] Comment on above: Performed By: #### C MP ####[facility] Pbxdkevpzm[address] [place], [place] [id number]. Farhat Leal CO2 [Moles/Vol] 28.9 mmol/L Normal 21.0-32.0 The [facility] Comment on above: Performed By: #### C MP ####[facility] Caqbzqddtu[address] [place], [place] [id number]. Farhat Leal Creatinine [Mass/Vol] 2.09 mg/dL Critically high 0.70-1.30 [facility] Comment on above: Performed By: #### C MP ####[facility] Bcerfasrpo[address] [place], [place] [address]Dr. Farhat Leal EGFR-AF MALDIVIAN 38 mL/min/1.73m2 Critically low >=60 [facility] Comment on above: Performed By: #### C MP ####[facility] S[address]wyqssmyu[address] [place] [address]Dr. Farhat Elvis EGFR-NON AF MALDIVIAN 31 mL/min/1.73m2 Critically low >=60 [facility] Comment on above: Performed By: #### C MP ####[facility] Yzpqvelwya[address] [place], [place] [address]Dr. Madelynlorri Elvis Globulin (S) [Mass/Vol] 3.7 g/dL Normal [facility] Comment on above: Performed By: #### C MP ####[facility] Axkcyzjwaf18[address] [place], [place] [address]Dr. Farhat Leal Glucose [Mass/Vol] 214 mg/dL Critically high 74-106 T [facility] Comment on above: Performed By: #### C MP ####[facility] Bdoxwcuiqu88[address] [place], [place] [address]Dr. Farhat Leal Potassium [Moles/Vol] 5.6 mmol/L Critically high 3.5-5.1 [facility] Comment on above: Performed By: #### C MP ####[facility] Ayoyqaipfc[address] [place], [place] [address]Dr. Farhat Leal Protein [Mass/Vol] 6.3 g/dL Critically low 6.4-8.2 Th [facility] Comment on above: Performed By: #### C MP ####[facility] Z[address]kwqcbxc[address] [place], [place] [address]Dr. Farhat Leal Sodium [Moles/Vol] 128 mmol/L Critically low 136-145 Th [facility] Comment on above: Performed By: #### C MP ####[facility] V[address]of[address]vad[address] [place], [place] [address]Dr. Farhat Leal Urea nitrogen [Mass/Vol] 65.0 mg/dL Critically high 7.0-18.0 [facility] Comment on above: Performed By: #### C MP ####[facility] Cqogmocnxt[address] [place], [place] [address]Dr. Farhat Leal Urea nitrogen/Creatinine [Mass ratio] 31.1 mg/mg Normal [facility] Comment on above: Performed By: #### C MP ####[facility] Abjsrzwwio60[address] [place], [place] [address]Dr. Farhat Elvis Albumin [Mass/Vol] 2.5 g/dL Critically low 3.4-5.0 Th e [facility] Comment on above: Performed By: #### T MYRIAM, CMP ####[facility] Gsgvyxztjz4[address] [place], [place] [address]Dr. Farhat Elvis Albumin/Globulin [Mass ratio] 0.7 {ratio} Normal [facility] Comment on above: Performed By: #### T MYRIAM, CMP ####[facility] Izmhxbvbph[address] [place], [place] [address]Dr. Madelynlorri Leal ALP [Catalytic activity/Vol] 83 U/L Normal 46-116 [facility] Comment on above: Performed By: #### T MYRIAM, CMP ####[facility] Wbzzzpqrbm[address] [place], [place] [address]Dr. Farhat Elvis ALT [Catalytic activity/Vol] 16 U/L Normal 16-63 [facility] Comment on above: Performed By: #### T MYRIAM, CMP ####[facility] Fwpbymqzfs9[address] [place], [place] [address]Dr. Madelynlorri Elvis Anion gap [Moles/Vol] 9.7 mmol/L Normal [facility] Comment on above: Performed By: #### T MYRIAM, CMP ####[facility] Mkrkmfczqp288[address] [place], [place] [address]Dr. Madelynlorri Leal AST [Catalytic activity/Vol] 27 U/L Normal 15-37 [facility] Comment on above: Performed By: #### T MYRIAM, CMP ####[facility] Nnduympdqz8[address] [place], [place] [address]Dr. Farhat Leal Bilirubin [Mass/Vol] 0.5 mg/dL Normal 0.2-1.0 [facility] Comment on above: Performed By: #### T MYRIAM, CMP ####[facility] Cnubmpltwr[address] [place], [place] [address]Dr. Farhat Leal Calcium [Mass/Vol] 8.8 mg/dL Normal 8.5-10.1 [facility] Comment on above: Performed By: #### T MYRIAM, CMP ####[facility] F[address]gfgpgp24[address] [place], [place] [address]Dr. Farhat Leal Chloride [Moles/Vol] 95 mmol/L Critically low 98-107 [facility] Comment on above: Performed By: #### T MYRIAM, CMP ####[facility] Shbwgqcemg95[address] [place], [place] [address]Dr. Farhat Leal CO2 [Moles/Vol] 30.5 mmol/L Normal 21.0-32.0 [facility] Comment on above: Performed By: #### T MYRIAM, CMP ####[facility] Hqvnvuknex90[address] [place], [place] [address]Dr. Farhat Lael Creatinine [Mass/Vol] 2.18 mg/dL Critically high 0.70-1.30 [facility] Comment on above: Performed By: #### T MYRIAM, CMP ####[facility] Zakchpkfav[address] [place], [place] [address]Dr. Farhat Leal EGFR-AF MALDIVIAN 36 mL/min/1.73m2 Critically low >=60 [facility] Comment on above: Performed By: #### T MYRIAM, CMP ####[facility] J[address]unehduz[address] [place], [place] [address]Dr. Farhat Leal EGFR-NON AF MALDIVIAN 30 mL/min/1.73m2 Critically low >=60 [facility] Comment on above: Performed By: #### T MYRIAM, CMP ####[facility] Uggvptmnod[address] [place], [place] [address]Dr. Farhat Leal Globulin (S) [Mass/Vol] 3.5 g/dL Normal [facility] Comment on above: Performed By: #### T MYRIAM, CMP ####[facility] Dbkospoiqs[address] [place], [place] [address]Dr. Farhat Leal Glucose [Mass/Vol] 141 mg/dL Critically high 74-106 [facility] Comment on above: Performed By: #### T MYRIAM, CMP ####[facility] Dnufhrjsru5[address] [place], [place] [address]Dr. Farhat Leal Potassium [Moles/Vol] 5.2 mmol/L Critically high 3.5-5.1 [facility] Comment on above: Performed By: #### T MYRIAM, CMP ####[facility] Q[address]ogtccfd9[address] [place], [place] [address]Dr. Farhat Leal Protein [Mass/Vol] 6.0 g/dL Critically low 6.4-8.2 Th [facility] Comment on above: Performed By: #### T MYRIAM, CMP ####[facility] Ogbrxygqan[address] [place], [place] [address]Dr. Farhat Leal Sodium [Moles/Vol] 130 mmol/L Critically low 136-145 Th [facility] Comment on above: Performed By: #### T MYRIAM, CMP ####[facility] M[address]yndhwec[address] [place], [place] [address]Dr. Farhat Leal Urea nitrogen [Mass/Vol] 63.0 mg/dL Critically high 7.0-18.0 [facility] Comment on above: Performed By: #### T MYRIAM, CMP ####[facility] F[address]bfwhwwh[address] [place], [place] [address]Dr. Farhat Leal Urea nitrogen/Creatinine [Mass ratio] 28.9 mg/mg Normal [facility] Comment on above: Performed By: #### T MYRIAM, CMP ####[facility] Vidmarwfoy8[address] [place], [place] [address]Dr. Farhat Leal PROTIMEon 09-18-2021 INR Coag (PPP) [Relative time] 1.06 {INR} Normal [facility] Comment on above: Performed By: #### P T, PTT ####[facility] [address]bktusot7[address] [place], [place] [address]Dr. Farhat Leal INR GUIDELINES SEE BELOW Normal [facility] Comment on above: Result Comment: MALINA RED INR: 2.0 - 3.0 CONDITIONS NOT LISTED BELOW 2.5 - 3.5 FOR PROSTHETIC HEART VALVE REPLACEMENT 2.5 - 3.5 RECURRENT THROMBOSIS Performed By: #### P T, PTT ####[facility] [address]qtsdbqctd[address] [place], [place] [address]Dr. Farhat Leal PT Coag (PPP) [Time] 11.4 s Normal 9.0-11.6 [facility] Comment on above: Performed By: #### P T, PTT ####[facility] [address]pe[address]kg35[address] [place], [place] [address]Dx. Farhat Leal PTTon 09-18-2021 aPTT Coag (Bld) [Time] 27.9 s Normal 22.3-36.2 [facility] Comment on above: Performed By: #### P T, PTT ####[facility] [address] [place], [place] [address]Kr. Farhat Leal TSHon 09-18-2021 TSH 7.099 uIU/mL Critically high 0.358-3.[address] [facility] Comment on above: Performed By: #### T SH, CMP ####[facility] Z[address]brca[address] [place] [phone]. Farhat Leal US SALOME DOP LEG RTon 09-19-19 22 US SALOME DOP LEG RT Normal [facility] XR CHEST 1 Von 09-18-2021 XR CHEST 1 V Normal [facility] XR HIP RT 2 3V W PELVISon XR HIP RT 2 3V W PELVIS Normal [facility] Vital Signs Date Time Vital Sign Value Performing Clinician Facility 07-20-2022 13:35-0400 Body temperature 97.4 [degF] DO Devon Ball Work Phone: [facility] 07-20-2022 13:35-0400 Diastolic blood pressure 50 mm[Hg] DO Devon Ball Work Phone: [facility] 07-20-2022 13:35-0400 Heart rate 67 /min DO Devon Ball Work Phone: [facility] 07-20-2022 13:35-0400 Respiratory rate 20 /min DO Devon Ball Work Phone: [facility] 07-20-2022 13:35-0400 Systolic blood pressure 98 mm[Hg] DO Devon Ball Work Phone: [facility] 06-29-2022 14:46-0400 Body height 193.04 cm DO Devon Moreira Work Phone: [facility] 02-26-2022 13:11-0500 Body temperature 96.6 [degF] Hina Peterson MD Work Phone: [facility] 02-26-2022 13:11-0500 Diastolic blood pressure 75 mm[Hg] Hina Peterson MD Work Phone: [facility] 02-26-2022 13:11-0500 Heart rate 75 /min Hina Peterson MD Work Phone: [facility] 02-26-2022 13:11-0500 Systolic blood pressure 88 mm[Hg] Hina Peterson MD Work Phone: [facility] 02-05-2022 08:29-0500 Body temperature 96.69 [degF] [facility] Work Phone: [facility] 02-05-2022 08:29-0500 Diastolic blood pressure 42 mm[Hg] [facility] Work Phone: [facility] 02-05-2022 08:29-0500 Heart rate 79 /min [facility] Work Phone: [facility] 02-05-2022 08:29-0500 SaO2% (BldA) [Mass fraction] 100 % [facility] Work Phone: [facility] 02-05-2022 08:29-0500 Systolic blood pressure 72 mm[Hg] [facility] Work Phone: [facility] 01-12-2022 11:00-0500 Diastolic blood pressure 54 mm[Hg] Alissa Major TIRE BUILDER OPERATOR.OIL PROGRAM COMPLIANCE SPECIALIST Work Phone: [facility] 01-12-2022 11:00-0500 Heart rate 88 /min Alissa Major TIRE BUILDER OPERATOR.OIL PROGRAM COMPLIANCE SPECIALIST Work Phone: [facility] 01-12-2022 11:00-0500 SaO2% (BldA) [Mass fraction] 93 % Alissa Major TIRE BUILDER OPERATOR.OIL PROGRAM COMPLIANCE SPECIALIST Work Phone: [facility] 01-12-2022 11:00-0500 Systolic blood pressure 96 mm[Hg] [facility] TIRE BUILDER OPERATOR.OIL PROGRAM COMPLIANCE SPECIALIST Work Phone: [facility] 01-12-2022 10:12-0500 Body temperature 97.9 [degF] Alissa [facility] TIRE BUILDER OPERATOR.OIL PROGRAM COMPLIANCE SPECIALIST Work Phone: [facility] 01-12-2022 10:12-0500 Respiratory rate 18 /min [facility] TIRE BUILDER OPERATOR.OIL PROGRAM COMPLIANCE SPECIALIST Work Phone: [facility] 11-17-2021 15:59-0400 Body height 193 cm No Reeder DO Work Phone: [facility] 11-17-2021 15:59-0400 Body weight 111.58 kg No Reeder DO Work Phone: [facility] 11-17-2021 15:59-0400 Diastolic blood pressure 59 mm[Hg] No Reeder DO Work Phone: [facility] 11-17-2021 15:59-0400 Heart rate 86 /min No Reeder DO Work Phone: [facility] 11-17-2021 15:59-0400 SaO2% (BldA) [Mass fraction] 97 % No Reeder DO Work Phone: [facility] 11-17-2021 15:59-0400 Systolic blood pressure 104 mm[Hg] No Reeder DO Work Phone: [facility] Encounters Encounter Date Encounter Type Care Provider Facility Start: 02-17-2023 End: 02-17-2023 ambulatory Devon Moreira Other [employer] Other Start: 02-17-2023 Telephone encounter Devon Moreira [facility] Start: 01-14-2023 End: 01-14-2023 ambulatory Devon Moreira Other [employer] Other Start: 01-14-2023 Sbsq nursing facil c are/day minor complj [address] [facility] Start: 12-10-2022 End: 12-10-2022 ambulatory Devon Moreira Other [employer] Other Start: 12-10-2022 Sbsq nursing facil c are/day minor complj [address] [facility] Start: 11-12-2022 End: 11-12-2022 ambulatory Devon Moreira Other [employer] Other Start: 11-12-2022 Sbsq nursing facil c are/day minor complj 15 min [facility] Start: 10-16-2022 Refill Asia Pike MD Work Phone: [facility] Comment on above: Med Change Request Start: 10-12-2022 End: 10-12-2022 ambulatory Devon Moreira Other [employer] Other Start: 10-12-2022 Telephone encounter Devon Moreira [facility] Start: 10-08-2022 End: 10-08-2022 ambulatory Devon Moreira Other [employer] Other Start: 10-08-2022 Sbsq nursing facil c are/day new problem 25 min [facility] Start: 09-22-2022 [facility] Start: 09-10-2022 End: 09-10-2022 ambulatory Devon Moreira Other [employer] Other Start: 09-10-2022 Sbsq nursing facil c are/day new problem [address] [facility] Start: 09-09-2022 End: 09-09-2022 ambulatory [facility] Start: 08-06-2022 End: 08-06-2022 ambulatory Devon Moreira Other [employer] Other Start: 08-06-2022 Sbsq nursing facil c are/day new problem 25 min [facility] Start: 07-22-2022 End: 07-22-2022 ambulatory Devon Moreira Other [employer] Other Start: 07-22-2022 Telephone encounter Devon NUNEZ [facility] Start: 07-20-2022 End: 07-20-2022 ambulatory Sadia Aguilar Facility:[facility] Start: 07-20-2022 End: 07-20-2022 ambulatory DO Devon Moreira Work Phone: [facility] Work Phone: Start: 07-20-2022 End: 07-20-2022 Discharged Recurring DO Devon Moreira Work Phone: [facility] Work Phone: Start: 07-13-2022 End: 07-13-[address] DEVON MOREIRA Facility:[facility] Start: 07-10-2022 End: 07-10-[address] DEVON MOREIRA Facility:[facility] Start: 07-03-2022 End: 07-03-[address] DEVON MOREIRA Facility:[facility] Start: 06-26-2022 End: 06-26-[address] DEVON MOREIRA Facility:[facility] Start: 06-26-2022 End: 06-26-[address] DEVON MOREIRA Facility:[facility] Start: 06-25-2022 End: 06-25-2022 ambulatory Devon Moreira Other [place] [employer] Other Start: 06-25-2022 Sbsq nursing facil c are/day minor complj [address] [facility] Start: 06-19-2022 End: 06-19-[address] DEVON MOREIRA Facility:[facility] Start: 06-15-2022 End: 07-15-2022 ambulatory SHAIKH Kate MURRAY Facility:[facility] Start: 06-12-2022 End: 06-12-[address] DOCTOR WALSH Facility:[facility] Start: 06-05-2022 Sbsq nursing facil c are/day new problem 25 min Devon Moreira [facility] Start: 06-05-2022 End: 06-05-[address] DEVON MOREIRA [facility] [employer] Other Start: 05-29-2022 End: 05-29-[address] DEVON MOREIRA Facility:[facility] Start: 05-22-2022 End: 05-22-[address] DEVON MOREIRA Facility:[facility] Start: 05-20-2022 End: 05-20-[address] DEVON MOREIRA Facility:[facility] Start: 05-18-2022 End: 06-12-2022 ambulatory SHAIKH Kate MURRAY Facility:[facility] Start: 05-15-2022 End: 05-15-[address] DEVON MOREIRA Facility:[facility] Start: 05-13-2022 End: 05-13-2022 ambulatory Van Olivarez TIRE BUILDER OPERATOR.OIL PROGRAM COMPLIANCE SPECIALIST Work Phone: [facility] Comment on above: results Start: 05-13-2022 E-mail encounter fro m caregiver Van Olivarez APRN.OIL PROGRAM COMPLIANCE SPECIALIST Work Phone: [facility] Start: 05-08-2022 End: 05-08-[address] DEVON MOREIRA Facility:[facility] Start: 05-07-2022 End: 05-07-2022 ambulatory Devon Moreira Other [place] [employer] Other Start: 05-07-2022 Sbsq nursing facil c are/day new problem [address] [facility] Start: 05-06-2022 End: 05-06-[address] [...] MOREIRA Facility:[facility] Start: 04-02-2022 ambulatory Van cortes TIRE BUILDER OPERATOR.OIL PROGRAM COMPLIANCE SPECIALIST Work Phone: [facility] [place] Start: 04-01-2022 End: 04-01-[address] DEVON MOREIRA Facility:[facility] Start: 03-22-2022 Refill Asia Pike MD Work Phone: [facility] Comment on above: Med Change Request Start: 03-21-2022 ambulatory SHAIKH Kate MURRAY Facilit y:[facility] Start: 03-11-2022 End: 03-11-[address] DEVON MOREIRA Facility:[facility] Start: 03-10-2022 End: 03-10-2022 ambulatory [facility] Start: 02-27-2022 Refill Samira Serna [facility] Comment on above: Rx Refills Start: 02-26-2022 End: 02-26-2022 ambulatory DEVON MOREIRA Facility:[facility] Start: 02-26-2022 End: 02-26-2022 Patient encounter [...] Start: 02-05-2022 End: 02-06-2022 ambulatory ARTUR CHEN Facility:[facility] Start: 02-05-2022 End: 02-05-2022 Patient encounter procedure [facility] Work Phone: [facility] Comment on above: Kidney replaced by t ransplant (Primary Dx); 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; ocean transportation intermediary current use of immunosuppressive drug Start: 01-26-2022 End: 01-26-[address] DEVON MOREIRA Facility:[facility] Start: 01-20-2022 Telephone encounter Van Olivarez APRN.OIL PROGRAM COMPLIANCE SPECIALIST Work Phone: [facility] Comment on above: Results Start: 01-19-2022 End: 01-19-[address] DEVON MOREIRA Facility:[facility] Start: 01-16-2022 ambulatory SHAIKH Kate MURRAY Facilit y:[facility] Start: 01-12-2022 End: 01-12-2022 Subsequent hospital visit by physician Alissa Chavira APRN.OIL PROGRAM COMPLIANCE SPECIALIST Work Phone: [facility] Comment on above: ILIANA (acute kidney in jury) (HCC) [N17.9] Start: 12-30-2021 End: 12-30-2021 ambulatory Paersh Fonseca MD Work Phone: Infectious Disease Comment on above: MRSA bacteremia (Arabella munira Dx); Diabetic foot ulcer with osteomyelitis (HCC) Start: 12-30-2021 End: 12-30-2021 Telemedicine consultation with patient Paresh Fonseca MD Work Phone: [facility] Start: 12-29-2021 End: 12-29-2021 ambulatory [...] Start: 12-08-2021 Orders Only Artur Jennyfer ry TIRE BUILDER OPERATOR.OIL PROGRAM COMPLIANCE SPECIALIST Work Phone: [facility] Comment on above: Kidney replaced by t ransplant (Primary Dx) Start: 12-07-2021 ambulatory Paresh Fonseca MD Work Phone: [facility] Comment on above: CoPat Start (copat s top 12/27/21) Start: 12-05-2021 Telephone encounter Paresh Fonseca MD Work Phone: Infectious Disease Comment on above: Patient Update (evus held discussion/) Start: 12-01-2021 Follow-up encounter [facility] Provider [facility] Start: 12-01-2021 Patient encounter procedure [facility] Prov ider [facility] Department Start: 11-23-2021 End: 11-28-2021 Evaluation and [...] management encounter Start: 11-14-2021 End: 11-15-[address] [facility] Sebastian [facility] Facility:[facility]1 Start: 10-24-2021 End: 11-15-2021 ambulatory DIAMOND Kate THOMPSONLIZZY Facility:[facility] Start: 10-22-2021 End: 10-23-2021 ambulatory [facility] Facility:H[facility] Start: 10-06-2021 ambulatory Van cortes TIRE BUILDER OPERATOR.OIL PROGRAM COMPLIANCE SPECIALIST Work Phone: [facility] Start: 09-30-2021 Refill Asia Pike MD Work Phone: [facility] Comment on above: Refill Request Start: 09-19-2021 End: 09-24-2021 Evaluation and management of inpatient DR PROSPER LEES Facility:[facility] Start: 09-18-2021 End: 09-19-[address] DEVON MOREIRA Facility:[facility] Start: 07-11-2021 Refill Asia Pike MD Work Phone: [facility] Comment on above: Refill Request Start: 06-05-2021 Telephone encounter Van Olivarez TIRE BUILDER OPERATOR.OIL PROGRAM COMPLIANCE SPECIALIST Work Phone: [facility] Comment on above: Results Start: 02-05-2021 End: 02-13-2021 ambulatory UNKNOWN PROVIDER Facility:[facility] Procedures Date Procedure Procedure Detail Performing Clinician Start: 02-05-2022 Creatinine other source Asia Pike MD Work Phone: Start: 02-05-2022 Urnls dip stick/tabl et rgnt auto w/o microscopy Asia Pike MD Work Phone: Start: 01-12-2022 Prothrombin time Alissa Chavira TIRE BUILDER OPERATOR.OIL PROGRAM COMPLIANCE SPECIALIST Work Phone: Start: 12-01-2021 PACEMAKER CLINIC CHECK [facility] Provider Start: 11-29-2021 Microscopic examinat ion of blood, culture DR PROSPER LEES Comment on above: Performed By: #### B [id number] ####[facility] [address] [place], [place] [address]Ew. Madelynlorri Leal Start: 11-27-2021 Insertion of Infusio [...] renal transplant KIDNEY TRANSPLANT STATUS Van Olivarez TIRE BUILDER OPERATOR.[facility] Work Phone: History of renal transplant Kidney replaced by transplant Artur Leesjasvir TIRE BUILDER OPERATOR.OIL PROGRAM COMPLIANCE SPECIALIST Work Phone: History of renal transplant Kidney replaced by transplant [facility] Work Phone: History of renal transplant Devon Ball Other History of renal transplant Kidney replaced by transplant Asia Pike MD Work Phone: Plan of Treatment Date Care Activity Detail Author Start: 02-26-2023 BP CONTROLLED (<130/80) BP CONTROLLE D (<130/80) [facility] Start: 02-05-2023 BP CONTROLLED (<130/80) BP CONTROLLE D (<130/80) [facility] Start: 01-12-2023 BP CONTROLLED (<130/80) BP CONTROLLE D (<130/80) [facility] Start: 11-17-2022 BP CONTROLLED (<130/80) BP CONTROLLE D (<130/80) [facility] Start: 10-16-[address] [facility] Start: 04-08-2022 BP CONTROLLED (<130/80) BP CONTROLLE D (<130/80) [facility] Start: 02-15-2022 ADVANCE DIRECTIVE DISCUSSION ADVANCE DIRECTIVE DISCUSSION [facility] Start: 02-15-2022 DEPRESSION ASSESSMENT DEPRESSION ASS ESSMENT [facility] Start: 02-05-2022 COVID-19 VACCINE (5 - Yung risk series) COVID-19 VACCINE (5 - Yung risk series) [facility] Start: 11-27-2021 COVID-19 VACCINE (4 - Booster for Yung series) COVID-19 VACCINE (4 - Booster for Yung series) [facility] Start: 11-04-2021 Hemoglobin A1c/Hemoglobin.total in Blood HBA1C [facility] Start: 10-16-[address] [facility] Start: 03-26-2021 COVID-19 VACCINE (3 - Yung risk 3-dose series) COVID-19 VACCINE (3 - Yung risk 3-dose series) [facility] Start: 03-26-2021 COVID-19 VACCINE (3 - Yung risk series) COVID-19 VACCINE (3 - Yung risk series) [facility] Start: 02-15-2021 ADVANCE DIRECTIVE DISCUSSION ADVANCE DIRECTIVE DISCUSSION [facility] Start: 02-15-2021 DEPRESSION ASSESSMENT DEPRESSION ASS ESSMENT [facility] Start: 01-05-2016 Hepatitis B screening URINE AL BUMIN:CREATININE RATIO [facility] Start: 04-06-2015 Hemoglobin A1c/Hemoglobin.total in Blood HBA1C [facility] Start: 11-22-2010 Hepatitis B surface antibody level LDL CHOLESTEROL [facility] Start: 2009 ADULT PREVNAR-13 ADULT PREVNAR-13 Cl [facility] Start: 2009 PNEUMOVAX AGE 65 AND OVER WITH 5YR LOOKBACK (#1) PNEUMOVAX AGE 65 AND OVER WITH 5YR LOOKBACK (#1) [facility] Start: 1994 SHINGRIX VACCINE (1 of 2) SHINGRIX VACCINE (1 of 2) [facility] Start: 10-18-1963 HEPATITIS A (1 of 2 - Risk 2-dose series) HEPATITIS A (1 of 2 - Risk 2-dose series) [facility] Start: 10-18-1963 Hepatitis A Vaccine (1 of 2 - Risk 2-dose series) Hepatitis A Vaccine (1 of 2 - Risk 2-dose series) [facility] Start: 10-18-1963 SHINGRIX VACCINE (1 of 2) SHINGRIX VACCINE (1 of 2) [facility] Start: 10-18-1963 Urine microalbumin profile [facility] Start: 1962 ANNUAL PCP TEAM [employer] CRM DEVELOPER MATTHEW DISEASE VISIT ANNUAL PCP TEAM CHRONIC DISEASE VISIT [facility] Start: 1956 Adult depression screening assessment DEPRESSION SCREENING [facility] Start: 1954 3 comp foot exam completed DIABETIC FOOT EXAM [facility] Start: 1954 Hepatitis C antibody , confirmatory test DILATED RETINAL EXAM [facility] Start: 1950 Pneumococcal Vaccine : 65+ (1 - PCV) Pneumococcal Vaccine: 65+ (1 - PCV) [facility] Start: 1950 PNEUMOCOCCAL: 65+ (1 - PCV) PNEUMOCOCCAL: 65+ (1 - PCV) [facility] Start: 1945 HEPATITIS A (1 of 2 - Risk 2-dose series) HEPATITIS A (1 of 2 - Risk 2-dose series) [facility] URINALYSIS, REFLEX MICROSCOPIC URINALYSIS, REFLEX MICROSCOPIC Lab Routine Screening for genitourinary condition Ordered: 10/06/2021 [facility] Work Phone: Comment on above: Ordered: 10/06/2021 URINALYSIS, REFLEX MICROSCOPIC URINALYSIS, REFLEX MICROSCOPIC Lab Routine Screening for genitourinary condition Ordered: 04/02/2022 [facility] Work Phone: Comment on above: Ordered: 04/02/2022 End: 11-17-2022 US LEG ARTERIAL PERIPH UNL VAS LAB US LEG ARTERIAL PERIPH UNL VAS LAB Vascular Lab Routine PAD (peripheral artery disease) (HCC) Nonhealing ulcer of heel (HCC) 1 Occurrences starting 11/17/2021 until 11/17/2022 [facility] Work Phone: Comment on above: 1 Occurrences starti ng 11/17/2021 until 11/17/2022 End: 11-17-2022 US LEG VEIN DVT UNL VAS LAB US LEG VEIN DVT UNL VAS LAB Vascular Lab Routine Acute deep vein thrombosis (DVT) of proximal end of right lower extremity (HCC) 1 Occurrences starting 11/17/2021 until 11/17/2022 [facility] Work Phone: Comment on above: 1 Occurrences starti ng 11/17/2021 until 11/17/2022 [facility] BROTHERS CT & VAS BROTHERS CT & VAS [facility] Immunizations Immunization Date Immunization Notes Care Provider [facility] 12-11-2021 COVID-19 booster vaccine, age 12+ yr, bivalent (PFIZER-BIONTECH) Paresh Fonseca MD Work Phone: [facility] 12-11-2021 influenza, high-dose , quadrivalent vaccine (FLUZONE HIGH DOSE QUADRIVALENT) Paresh Fonseca MD Work Phone: [facility] 12-11-2021 influenza virus vaccine, unspecified formulation Ariadna CRAM [employer] [facility] 03-09-2011 influenza virus vaccine, unspecified formulation Van Olivarez TIRE BUILDER OPERATOR.OIL PROGRAM COMPLIANCE SPECIALIST Work Phone: [facility] 12-17-2007 influenza virus vaccine, unspecified formulation Van Sher TIRE BUILDER OPERATOR.OIL PROGRAM COMPLIANCE SPECIALIST Work Phone: [facility] Work Phone: 02-11-2006 influenza virus vaccine, unspecified formulation Van Sher TIRE BUILDER OPERATOR.OIL PROGRAM COMPLIANCE SPECIALIST Work Phone: [facility] Work Phone: 12-07-2003 influenza virus vaccine, unspecified formulation Vanbetzy Olivarez TIRE BUILDER OPERATOR.OIL PROGRAM COMPLIANCE SPECIALIST Work Phone: [facility] Work Phone: 12-07-2003 pneumococcal polysaccharide vaccine, 23 valent Van Olivarez TIRE BUILDER OPERATOR.OIL PROGRAM COMPLIANCE SPECIALIST Work Phone: [facility] Work Phone: NEGATED: Highlighted row has not occurred!12-10-2021 COVID-19 booster vaccine, age 12+ yr, bivalent (PFIZER-BIONTF[place]) Paresh Fonseca MD Work Phone: [facility] NEGATED: Highlighted row has not occurred!12-10-2021 influenza, high-dose, quadrivalent vaccine (FLUZONE HIGH DOSE QUADRIVALENT) Paresh Fonseca MD Work Phone: [facility] Payers Date Payer Category Payer Medicare MEDICARE MEDICAR E A AND B [id number] 2009-Present [phone] [place] [address] Medicare [id number] 2009 Medicare MEDICARE MEDICAR E A AND B [id number] 2009-Present [phone] [place] [address] Medicare [id number] 2009 Unknown [employer] [place] [employer] [place] MEDICARE SUPPLEMENT [id number] 2009-Present [phone] [address] [employer] [place] [address] Indemnity [id number] .[id number] 2009 Unknown [employer] [place] [employer] [place] MEDICARE SUPPLEMENT [id number] 2009-Present [phone] [address] [employer] [address] Indemnity [id number] .[id number] 2009 Unknown [id number] 2.16.8 40.1.786110.19 2009 Unknown [id number] 1959 Medicare [id number] 1959 Self-pay 1944 Unknown [id number] 2.16.840.1.152832.3.579.2.732 1944 Unknown [id number] 2.16.840.1.954988.3.579.2.593 1944 Unknown [id number] 2.16.840.1.962590.3.579.2.593 1944 Unknown [id number] 2.16.840.1.453512.3.579.2.593 1944 Unknown [id number] 2.16.840.1.603362.3.579.2.593 1944 Unknown [id number] 2.16.840.1.350998.3.579.2.593 1944 Unknown [id number] 2.16.840.1.119355.3.579.2.593 1944 Unknown [id number] 2.16.840.1.166080.3.579.2.593 1944 Unknown [id number] 2.16.840.1.118454.3.579.2.593 1944 Unknown [id number] 2.16.840.1.963456.3.579.2.593 1944 Unknown [id number] 2.16.840.1.992114.3.579.2.593 1944 Unknown [id number] 2.16.840.1.850862.3.579.2.593 1944 Unknown [id number] 2.16.840.1.018021.3.579.2.593 1944 Unknown [id number] 2.16.840.1.258180.3.579.2.593 1944 Unknown [id number] 2.16.840.1.106273.3.579.2.593 1944 Unknown [id number] 2.16.840.1.057541.3.579.2.593 1944 Unknown [id number] 2.16.840.1.202257.3.579.2.593 1944 Unknown [id number] 2.16.840.1.999376.3.579.2.593 1944 Unknown [id number] 2.16.840.1.420332.3.579.2.593 1944 Unknown [id number] 2.16.840.1.539168.3.579.2.593 1944 Unknown [id number] 2.16.840.1.468441.3.579.2.593 1944 Unknown [id number] 2.16.840.1.274042.3.579.2.593 1944 Unknown [id number] 2.16.840.1.218055.3.579.2.593 1944 Unknown [id number] 2.16.840.1.158150.3.579.2.593 1944 Unknown [id number] 2.16.840.1.083952.3.579.2.593 1944 Unknown [id number] 2.16.840.1.705815.3.579.2.593 1944 Unknown [id number] 2.16.840.1.496077.3.579.2.593 1944 Unknown [id number] 2.16.840.1.057611.3.579.2.593 1944 Unknown [id number] 2.16.840.1.377935.3.579.2.593 1944 Unknown [id number] 2.16.840.1.952008.3.579.2.593 1944 Unknown [id number] 2.16.840.1.980083.3.579.2.593 1944 Unknown [id number] 2.16.840.1.968235.3.579.2.593 1944 Unknown [id number] 2.16.840.1.983504.3.579.2.593 1944 Unknown [id number] 2.16.840.1.604753.3.579.2.593 1944 Unknown [id number] 2.16.840.1.526299.3.579.2.593 1944 Unknown [id number] 2.16.840.1.926800.3.579.2.593 1944 Unknown [id number] 2.16.840.1.053373.3.579.2.593 1944 Unknown [id number] 2.16.840.1.451290.3.579.2.593 1944 Unknown [id number] 2.16.840.1.962864.3.579.2.593 1944 Unknown [id number] 2.16.840.1.590731.3.579.2.593 1944 Unknown [id number] 2.16.840.1.704624.3.579.2.593 1944 Unknown [id number] 2.16.840.1.781341.3.579.2.593 1944 Unknown [id number] 2.16.840.1.556686.3.579.2.593 1944 Unknown [id number] 2.16.840.1.173627.3.579.2.593 1944 Unknown [id number] 2.16.840.1.602553.3.579.2.593 1944 Unknown [id number] 2.16.840.1.981616.3.579.2.593 1944 Unknown [id number] 2.16.840.1.799264.3.579.2.593 Medicare Medicare Outpatient [id number] 2T [id number] Unknown [id number] 2.16.840.1.653194.3.579.2.593 Unknown [id number] 2.16.840.1.791059.3.579.2.593 Unknown [id number] 2.16.840.1.364816.3.579.2.531 Social History Date Type Detail Facility Start: 03-09-2011 End: 02-26-2022 Tobacco smoking status NHIS Ex-smoker [facility] Work Phone: End: 02-15-1975 History of tobacco use Current smoker [facility] Work Phone: End: 02-15-1975 History of tobacco use Cigarette Smoker [facility] Work Phone: Start: 04-08-2021 End: 02-26-2022 Alcohol intake Current drinker of alcohol (finding) [facility] Start: 1945 Sex Assigned At Not on file [facility] Start: 03-09-2011 End: 03-02-2022 Cigarettes smoked current (pack per day) - Reported [address] [facility] Work Phone: Start: 03-09-2011 End: 02-26-2022 Tobacco use and exposure Smokeless tobacco non-user [facility] Start: 09-25-2021 History SDOH Financial [address] [facility] Start: 09-25-2021 History SDOH Food Worry [address] [facility] Start: 09-25-2021 History SDOH Transpo rt Med [address] [facility] Start: 09-14-2021 End: 01-12-2022 Exposure to SARS-CoV-2 (event) Not sure [facility] Start: 02-26-2022 End: 03-02-2022 Sex Assigned At [facility] Work Phone: Start: 1945 Sex Assigned At Male F [facility] How hard is it for y ou to pay for the very basics like food, housing, medical care, and heating Not hard at all [facility] Work Phone: (I/We) worried whebrenden er (my/our) food would run out before (I/we) got money to buy more. Never true [facility] Work Phone: In the past 12 month s, was there a time when you were not able to pay the mortgage or rent on time? No [facility] Work Phone: Medical Equipment Procedure Code Equipment Code Equipment Original Text Equipment Identifier Dates Tray Powerline S urecuff 5fr Polyurethane Catheter 1 Lumen Microintroducer - [id number] Start: 12-06-2021 Clinical Notes 06-05-2021 to [...] are maintaining regular scheduled appts with their compression molding machine operator. No bleeding complications Dec, Hyperlipidemia LDL goal [...] fluid balance and to avoid dehydration. Dec, FPC (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 of insulin (ICD-10 - Z79.4) [employer] Other 10-26-2023 Evaluation note* Encounter Date Diagnosis Assessment Notes Treatment Notes Treatment Clinical Notes Nov, Longstanding persistent atrial fibrillation (ICD-10 - I48.11) This patient is in NSR or rate controlled. This patient is anticoagulated to prevent thromboembolic events. They are maintaining regular scheduled appts with their compression molding machine operator. No bleeding complications Nov, Hyperlipidemia LDL goal [...] Z94.0) Monthly labs to transplant clinic Nov, ocean transportation intermediary (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 of insulin (ICD-10 - Z79.4) [facility] Other 09-28-2023 Evaluation note* Encounter Date Diagnosis [...] are maintaining regular scheduled appts with their compression molding machine operator. No bleeding complications Oct, Type 1 diabetes [...] - Z94.0) Continue routine surveillance labs. Oct, ocean transportation intermediary (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 of insulin (ICD-10 - Z79.4) [facility] Other 09-01-2023 Miscellaneous Notes* Telephone Encounter - Mary Martinez - 10/16/2022 1:08 PM EDT Pharmacy comment: REQUEST FOR 90 DAYS PRESCRIPTION. DX Code Needed. documented in this encounter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 No bleeding complications Sep, Type 1 diabetes [...] risk for cerebrovascular and cardiovascular disease. Sep, ocean transportation intermediary (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 of insulin (ICD-10 - Z79.4) Sep, Kidney transplant status (ICD-10 - Z94.0) f/u transplant clinic Continue surveillance labs [facility] Other 08-08-2023 Miscellaneous Notes* Telephone Encounter - Ariadna Mcdowell Tech - 09/22/2022 8:58 AM EDT Pharmacy requesting refills as follows: Requested Prescriptions Pending Prescriptions Disp Refills tacrolimus IR (PROGRAF) 1 mg capsule Sig: Take 1 capsule by mouth DAILY AT 6 PM. Please review and advise. Ariadna Mcdowell, documented in this encounterUniversity [facility]07-[facility]-2023 Evaluation note* Encounter Date Diagnosis Assessment Notes Treatment Notes Treatment Clinical Notes Aug, Longstanding persistent atrial fibrillation (ICD-10 - I48.11) This patient is in NSR or rate controlled. This patient is anticoagulated to prevent thromboembolic events. They are maintaining regular scheduled appts with their compression molding machine operator. No s/s bleeding Aug, Type 1 diabetes [...] risk for cerebrovascular and cardiovascular disease. Aug, ocean transportation intermediary (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 of insulin (ICD-10 - Z79.4) Aug, Kidney transplant status (ICD-10 - Z94.0) Continue close surveillance w/ labs [facility] Other 07-26-2023 NotePatient here for 1.5 year follow up and device check. Lightheaded in the office today, as BP is very low. He denies chest pain, SOB, palpitations, and bleeding on warfarin. Had routine labs last week. Review of Systems Musculoskeletal: Positive for arthritis, joint pain and myalgias. Neurological: Positive for light-headedness. All other systems reviewed and are negative.[facility] 09-09-2022 NoteUT Electrophysiology Consult Note [...] at about 50-60 systolic. patient with friend/ armor reconnaissance vehicle driver from facility, we will take patient [...] of the right coronary artery with robust [id number] collaterals. 5. Normal global left ventricular systolic [...] Follow up with Dr. Galvez in the [facility] in the next 2 weeks; he may follow up with Dr. Orosco as needed for interventional issues. 5. Follow up with Dr. Devon Moreira as scheduled. PMH: Past Medical History: Diagnosis Date Abnormal ECG Arrhythmia Atrial fibrillation (CMS/HCC) Chronic kidney disease Coronary artery disease Diabetes mellitus (CMS/HCC) (more content not included)...[facility]06-22-2023 Evaluation note* Encounter Date Diagnosis [...] are maintaining regular scheduled appts with their compression molding machine operator. No bleeding complications Jul, Type 1 diabetes [...] risk for cerebrovascular and cardiovascular disease. Jul, ocean transportation intermediary (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 of insulin (ICD-10 - Z79.4) Jul, Kidney transplant status (ICD-10 - Z94.0) Monthly labs, ongoing surveillance from transplant clinic [place] [facility] Other 05-15-2023 Progress note Author Sadia Aguilar [facility] June 29, 2022 2:47pm Note Date/Time June 29, 2022 2:46p m [facility] [address] [place] [address] Wound Center Provider Note Signed Patient: Alex Almonte MR#: [id number] : 1945 Acct:[id number] Age/Sex: 76 / M Copies to: DO Sadia Whyte APRN~ HPI Date of Visit Date of Visit: Date of Service: 06/29/2022 Time of Service: 14:45 Narrative HPI: 12/30/21 Alex is a 76 year old male presenting to [facility] wound care for aninitial visit for eval and treatment of a sacral/coccyx area pressure ulcer. He resides at [facility]. There is an CLIPMAN present for the visit. Medicalhoney gel will [...] his brief that was cleaned by this content writer as well as another nursing staff [...] from initial visit here Mode of Arrival/ Route Sales Delivery Drivers Supervisor: Facility vehicle Assistive Device Used Today: Wheelchair and Indra Lives with:: Care/Nursing Facility Appetite Description: Within Normal Limits Who helps w/ dressing change?: Nursing Facility Why Do You Need Help?: Can't Reach Ulcer, Limited mobility and Taxing effort to leave home Smoking Status: Former smoker [facility] Medical History (Updated 03/03/22 @ 14:41 by [...] Ulcer/Injury Staging: Unstageable Bed Appearance: Beefy Red, Del Aire, Yellow and Rolled Edges Percent of Wound [...] By: <Electronically signed by DAVID Aguilar> 06/29/221446 [facility] Work Phone: [phone]) 612-164905-11-2023 Evaluation note* Encounter Date Diagnosis Assessment Notes [...] are maintaining regular scheduled appts with their compression molding machine operator. No bleeding complications June, Hyperlipidemia LDL goal <100 (ICD-10 - E78.5) Instructed on diet and exercise with continued statin therapy.Discussed the beneficial effects of lowering cholesterol in reducing the risk for cerebrovascular and cardiovascular disease. June, ocean transportation intermediary (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 of insulin (ICD-10 - Z79.4) June, Kidney transplant status (ICD-10 - Z94.0) No s/s rejection [facility] Other 04-24-2023 Progress note Author Sadia Aguilar [facility] June 08, 2022 2:10pm Note Date/Time June 08, 2022 2:1 0pm [facility] [address] [place] [address] Wound Center Provider Note Signed Patient: Alex Almonte MR#: [id number] : 1945 Acct:[id number] Age/Sex: 76 / M Copies to: Devon Moreira,DO Sadia Aguilar APRN~ HPI Date of Visit Date of Visit: Date of Service: 06/08/2022 Time of Service: 14:07 Narrative HPI: 12/30/21 Alex is a 76 year old male presenting to [facility] wound care for aninitial visit for eval and treatment of a sacral/coccyx area pressure ulcer. He resides at [facility]. There is an CLIPMAN present for the visit. Medicalhoney gel will [...] his brief that was cleaned by this content writer as well as another nursing staff [...] from initial visit here Mode of Arrival/ Route Sales Delivery Drivers Supervisor: Facility vehicle Assistive Device Used Today: Wheelchair and Indra Lives with:: Care/Nursing Facility Appetite Description: Within Normal Limits Who helps w/ dressing change?: Nursing Facility Why Do You Need Help?: Can't Reach Ulcer, Limited mobility and Taxing effort to leave home Smoking Status: Former smoker [facility] Medical History (Updated 03/03/22 @ 14:41 by Sadia Agiular APRN) Below-knee amputation of right lower extremity [...] Ulcer/Injury Staging: Unstageable Bed Appearance: Beefy Red, Del Aire, Yellow and Rolled Edges Percent of Wound [...] <Electronically signed by DAVID Aguilar> 06/08/22 1410 [facility] Work Phone: 1(564) 388-441104-21-2023 Evaluation note* Encounter Date Diagnosis Assessment Notes [...] are maintaining regular scheduled appts with their compression molding machine operator. May, FPC (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 of insulin (ICD-10 - Z79.4) May, Kidney transplant status (ICD-10 - Z94.0) routine labs per clinic. 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 No open ulcerations present Pain controlled [facility] Other 03-27-2023 Progress note Author Sadia Aguilar [facility] May 11, 2022 1:41pm Note Date/Time May 11, 2022 1:4 0pm [facility] [address] [place] [address] Wound Center Provider Note Signed Patient: Alex Almonte MR#: [id number] : 1945 Acct:[id number] Age/Sex: 76 / M Copies to: Devon Moreira,DO Sadia Aguilar, TIRE BUILDER OPERATOR~ HPI Date of Visit Date of Visit: Date of Service: 05/11/2022 Time of Service: 13:38 Narrative HPI: 12/30/21 Alex is a 76 year old male presenting to [facility] wound care for aninitial visit for eval and treatment of a sacral/coccyx area pressure ulcer. He resides at [facility]. There is an CLIPMAN present for the visit. Medicalhoney gel will [...] his brief that was cleaned by this content writer as well as another nursing staff [...] from initial visit here Mode of Arrival/ Route Sales Delivery Drivers Supervisor: Facility vehicle Assistive Device Used Today: Wheelchair and Indra Lives with:: Care/Nursing Facility Appetite Description: Within Normal Limits Who helps w/ dressing change?: Nursing Facility Why Do You Need Help?: Can't Reach Ulcer, Limited mobility and Taxing effort to leave home Smoking Status: Former smoker [facility] Medical History (Updated 03/03/22 @ 14:41 by [...] Ulcer/Injury Staging: Unstageable Bed Appearance: Beefy Red, Del Aire and Yellow Percent of Wound Bed Granulated/Red: [...] <Electronically signed by DAVID Aguilar> 05/11/22 [address] [facility] Work Phone: 1(482) 998-307503-23-2023 Evaluation note* Encounter Date Diagnosis Assessment Notes [...] are maintaining regular scheduled appts with their compression molding machine operator. Apr, Type 1 diabetes mellitus with hyperglycemia [...] are reviewed at the office visit Apr, ocean transportation intermediary (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 of insulin (ICD-10 - Z79.4) Apr, Kidney transplant status (ICD-10 - Z94.0) Serial labs by clinic Hydrate, avoid NSAIDS [employer] Other 03-10-2023 NoteHNO ID: [id number] Author: Keyur Brown MD Service: ? Author Type: Physician Type: Progress Notes Filed: 04/24/2022 10:32 AM Note Text: Encounter opened in error, patient not seen.[facility]02-28-2023 Progress note Author Sadia Aguilar [facility] April 14, 2022 2:19pm Note Date/Time April 14, 2022 2:18pm [facility] EN[facility] [address] [place] [address] Wound Center Provider Note Signed Patient: Alex Almonte MR#: [id number] : 1945 Acct:[id number] Age/Sex: 76 / M Copies to: DO Sadia Whyte APRN~ HPI Date of Visit Date of Visit: Date of Service: 04/14/2022 Time of Service: 14:18 Narrative HPI: 12/30/21 Alex is a 76 year old male presenting to [facility] wound care for aninitial visit for eval and treatment of a sacral/coccyx area pressure ulcer. He resides at [facility]. There is an CLIPMAN present for the visit. Medicalhoney gel will [...] his brief that was cleaned by this content writer as well as another nursing staff [...] from initial visit here Mode of Arrival/ Route Sales Delivery Drivers Supervisor: Facility vehicle Assistive Device Used Today: Wheelchair and Indra Lives with:: Care/Nursing Facility Appetite Description: Within Normal Limits Who helps w/ dressing change?: Nursing Facility Why Do You Need Help?: Can't Reach Ulcer, Limited mobility and Taxing effort to leave home Smoking Status: Former smoker [facility] Medical History (Updated 03/03/22 @ 14:41 by [...] Ulcer/Injury Staging: Unstageable Bed Appearance: Beefy Red, Del Aire and Yellow Percent of Wound Bed Granulated/Red: [...] <Electronically signed by DAVID Aguilar> 04/14/22 [address] [facility] Work Phone: 1([phone]) 559-693702-16-2023 NotePatient Outreach (DAVISMMN) ALEX ALMONTE ([id number]) 1945 M TRN Date Time Provider Department 04/02/22 VAN OLIVAREZ During your visit today, we recorded the following information about you: Allergies As of Date: 04/02/2022 Noted Allergy Reaction PYRIDOSTIGMINE BROMIDE 08/04/2021 8 - GI Upset Date Reviewed: 02/26/2022 Reviewed by: Braden Abel MA - Fully Assessed Visit Diagnosis:Screening for genitourinary condition [Z13.89] Order(s):URINALYSIS, REFLEX MICROSCOPIC [AXT1744] Order #: [id number] Prescriptions as of 04/06/2022 - tacrolimus IR [...] by mouth daily with lunch. 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 DIABETES UNCOMPL ADULT-UNCONTRLLED [OOI5804] 02/24/2002 KIDNEY TRANSPLANT STATUS [Z94.0] 09/07/2003 PROPHYLACTIC IMMUNOTHERAPY [Z29.8] 07/30/2006 [facility] STEROIDS [LDW2130] 07/30/2006 VITAMIN D DEFICIENCY NOS [E55.9] 09/07/2008 MIXED HYPERLIPIDEMIA [E78.2] 09/07/2008 SUMMARY 01/04/2015 ILIANA (acute kidney injury) (HCC) [N17.9] 01/04/2015 Diabetes mellitus (HCC) [E11.9] 01/04/2015 Cellulitis [L03.90] 01/04/2015 Diarrhea [R19.7] 01/04/2015 VTE (venous thromboembolism) [I82.90] 09/24/2021 CAD (coronary artery disease) [I25.10] 2016 Paroxysmal atrial fibrillation (HCC) [I48.0] HTN (hypertension) [I10] SA node dysfunction ([facility]) [I49.5] Altered tissue perfusion [R09.89] 09/30/2021 PAD (peripheral artery disease) (HCC) [I73.9] 09/26/2021 Osteomyelitis (HCC) [M86.9] 11/29/2021 Class 1 obesity due to excess calories with ser*11/29/2021 Mixed hyperlipidemia due to type 2 diabetes myles*11/29/2021 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 Katina Duque documented in this encounterUniversity Hospitals St. John [facility] Center02-07-2023 Progress note Author Sadia Aguilar [facility] March 24, 2022 3:00pm Note Date/Time March 24, 2022 2 :59pm [facility] EN[facility] [address] [place] [address] Wound Center Provider Note Signed Patient: Alex Almonte MR#: [id number] : 1945 Acct:[id number] Age/Sex: 76 / M Copies to: DO Sadia Whyte APRN~ HPI Date of Visit Date of Visit: Date of Service: 03/24/2022 Time of Service: 14:58 Narrative HPI: 12/30/21 Alex is a 76 year old male presenting to [facility] wound care for aninitial visit for eval and treatment of a sacral/coccyx area pressure ulcer. He resides at [facility]. There is an CLIPMAN present for the visit. Medicalhoney gel will [...] his brief that was cleaned by this content writer as well as another nursing staff [...] from initial visit here Mode of Arrival/ Route Sales Delivery Drivers Supervisor: Facility vehicle Assistive Device Used Today: Wheelchair and Indra Lives with:: Care/Nursing Facility Appetite Description: Within Normal Limits Who helps w/ dressing change?: Nursing Facility Why Do You Need Help?: Can't Reach Ulcer, Limited mobility and Taxing effort to leave home Smoking Status: Former smoker [facility] Medical History (Updated 03/03/22 @ 14:41 by [...] Ulcer/Injury Staging: Unstageable Bed Appearance: Beefy Red, Del Aire and Yellow Percent of Wound Bed Granulated/Red: [...] <Electronically signed by DAVID Aguilar> 03/24/22 [address] [facility] Work Phone: 1(752) 257-999101-17-2023 Progress note Author Sadia Aguilar [facility] March 03, 2022 2:41pm Note Date/Time March 03, 2022 2 :41pm [facility] EN[facility] [address] [place] [address] Wound Center Provider Note Signed Patient: Alex Almonte MR#: [id number] : 1945 Acct:[id number] Age/Sex: 76 / M Copies to: DO Sadia Whyte APRN~ HPI Date of Visit Date of Visit: Date of Service: 03/03/2022 Time of Service: 14:38 Narrative HPI: 12/30/21 Alex is a 76 year old male presenting to [facility] wound care for aninitial visit for eval and treatment of a sacral/coccyx area pressure ulcer. He resides at [facility]. There is an CLIPMAN present for the visit. Medicalhoney gel will [...] his brief that was cleaned by this content writer as well as another nursing staff [...] from initial visit here Mode of Arrival/ Route Sales Delivery Drivers Supervisor: Facility vehicle Assistive Device Used Today: Wheelchair and Indra Lives with:: Care/Nursing Facility Appetite Description: Within Normal Limits Who helps w/ dressing change?: Nursing Facility Why Do You Need Help?: Can't Reach Ulcer, Limited mobility and Taxing effort to leave home Smoking Status: Former smoker [facility] Medical History (Updated 03/03/22 @ 14:41 by [...] Ulcer Pressure Ulcer/Injury Staging: Unstageable Bed Appearance: Del Aire and Yellow Percent of Wound Bed Granulated/Red: 90 Percent of Devitalized: 10 Length (cm): 2.2 Width (cm): 1.8 Depth (cm): 1.9 CM Sq: 3.960 Surrounding Tissue Appearance: Del Aire, Hyperpigmented and Satellite lesions Surrounding Tissue Temp: [...] <Electronically signed by DAVID Aguilar> 03/03/22 [address] [facility] Work Phone: 1(806) 837-885801-13-2023 Miscellaneous Notes* Telephone Encounter - RAUL Davidson - 02/27/2022 10:24 AM EST Patient phones requesting refills as follows: Per pts sister takes 1 mg in AM and 1 mg in PM Requested Prescriptions Pending Prescriptions Disp Refills tacrolimus IR (PROGRAF) 1 mg capsule Sig: Take 2 capsules by mouth DAILY (6 AM). Please review and advise. RAUL Davidson documented in this encounterUniversity Hospitals St. John Medical Center01-12-2023 NoteHNO ID: [id number] Author: Hina Peterson MD Service: ? Author Type: Physician Type: Progress Notes Filed: 02/26/2022 4:31 PM Note Text: [facility] DEPARTMENT OF VASCULAR SURGERY OUTPATIENT VISIT DATE [...] his postop visit. He has been in custodial since then and has been recovering from his acute on chronic congestive heart failure. His wound has largely been healing without any issues and the maxwell and sutures were removed at the nursing facility. He comes here with a lateral wound eschar. He denies any fevers, chills, or any drainage. He is on anticoagulation. 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 Magic Cup Loving with lunch aspirin, enteric coated (ASPIRIN, ENTERIC COATED) 81 mg EC tablet Take 1 tablet by mouth once daily. predniSONE (DELTASONE) 5 mg tablet TAKE 1 TABLET BY MOUTH EVERY DAY oxyCODONE IR (ROXICODONE) 5 mg immediate release tablet 1-2 tablets by ORAL/FEEDING TUBE route every 3 hours as needed. Food Supplement, Lactose-Free (ENSURE MAX (more content not included)... [facility]01-12-2023 History of Present illness Narrative* Hina Peterson MD - 02/26/2022 4:25 PM EST Images from the original note were not included. [facility] DEPARTMENT OF VASCULAR SURGERY OUTPATIENT VISIT DATE [...] his postop visit. He has been in custodial since then and has been recovering from his acute on chronic congestive heart failure. His wound has largely been healing without any issues and the maxwell and sutures were removed at the [facility] facility. He comes here with a lateral wound eschar. He denies any fevers, chills, or any drainage. He is on anticoagulation. 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 Magic Cup Loving with lunch aspirin, enteric coated (ASPIRIN, ENTERIC [...] 2022 TIME: 4:26 PM documented in this encounterUniversity Hospitals St. John Medical Center01-05-2023 Miscellaneous Notes* Telephone Encounter - Gwen Beard [...] Home and cell number(Ask for Alex's nurse) [phone] Diagnosis 4 mo f/u wound check Yumiko Mcclain documented in this encounterUniversity Hospitals St. John Medical Center01-05-2023 Miscellaneous Notes* Telephone Encounter - Augusta Medrano RN - 02/19/2022 11:11 AM EST Alex Almonte's nursing facility, [facility], called regarding elevated tacrolimus level (23.9). Spoke with bedside nurse, Zoe, today. Level is from last week- unable to clearly determine if medications were held prior to lab work. Reviewed with nurse morning labs should occur prior to lab draws. Patient is scheduled for repeat labs tomorrow. Will assess new level. Augusta Medrano RN documented in this encounterUniversity Hospitals St. John Medical Center01-04-2023 Miscellaneous Notes* Telephone Encounter - Martina Rossi [...] advise. Mercedez Tavares MA documented in this encounterUniversity Hospitals St. John Medical Center12-27-2022 Progress note Author Sadia Aguilar [facility] February 10, 2022 3:47pm Note Date/Time February 10, 2022 3:47pm [facility] EN[facility] [address] [place] [address] Wound Center Provider Note Signed Patient: Alex Almonte MR#: [id number] : 1945 Acct:[id number] Age/Sex: 76 / M Copies to: DO Sadia Whyte APRN~ HPI Date of Visit Date of Visit: Date of Service: 02/10/2022 Time of Service: 15:44 Narrative HPI: 12/30/21 Alex is a 76 year old male presenting to [facility] wound care for aninitial visit for eval and treatment of a sacral/coccyx area pressure ulcer. He resides at [facility]. There is an CLIPMAN present for the visit. Medicalhoney gel will [...] his brief that was cleaned by this content writer as well as another nursing staff member, few weeks to follow up Subjective Pain Coccyx: Pain Description: Intermittent Pain Intensity: 0 Wound/Ulcer History When did wound start?: 4 weeks ago- from initial visit here Mode of Arrival/ Route Sales Delivery Drivers Supervisor: Facility vehicle Assistive Device Used Today: Wheelchair and Indra Lives with:: Care/Nursing Facility Appetite Description: Within Normal Limits Who helps w/ dressing change?: Nursing Facility Why Do You Need Help?: Can't Reach Ulcer, Limited mobility and Taxing effort to leave home Smoking Status: Former smoker [facility] Medical History (Updated 01/20/22 @ 14:21 by [...] Ulcer Pressure Ulcer/Injury Staging: Unstageable Bed Appearance: Del Aire and Yellow Percent of Wound Bed Granulated/Red: 90 Percent of Devitalized: 10 Length (cm): 2.5 Width (cm): 2.3 Depth (cm): 2.1 CM Sq: 5.750 Surrounding Tissue Appearance: Del Aire, Hyperpigmented and Satellite lesions Surrounding Tissue Temp: [...] <Electronically signed by DAVID Aguilar> 02/10/22 [address] [facility] Work Phone: [phone]) 905-841312-22-2022 NoteHNO ID: [id number] Author: Asia Pike MD Service: ? Author Type: Physician Type: Progress Notes Filed: 02/05/2022 9:38 AM Note Text: [facility] Follow up Portions of this note [...] and snacks patient declined. Indra scale at [facility]: 166.2 lbs per patient. Bed sore on coccyx causing discomfort. Being changed regularly at SNF- reported to be smaller around but still as deep. Patient not very up to date with medications. Patient brought paperwork from [employer] with all medications being received. Patient unsure if they have been drawing labs regularly. Last Tac from 01/19: 12.9 and K 5.9. In need of current labs. Lab orders will be sent with patient and follows as below: [facility] Standing Lab Orders [address] [place], [place] [address] February 05, 2022 [place] 1945 [id number] STANDARD TESTING: Diagnosis Codes: Z94.0 Kidney Transplant [...] AT YOUR LABORATORY FACILITY AND FAX TO [phone]. PLEASE CALL [phone]. Provider: Dr. Pike Current Outpatient Medications Medication [...] by mouth daily with lunch. Magic Cup Loving with lunch aspirin, enteric coated (ASPIRIN, ENTERIC COATED) 81 mg EC tablet Take 1 tablet by mouth once daily. atorvastatin (LIPITOR) 40 mg tablet 1 tablet by ORAL/FEEDING TUBE route daily at bedtime. (more content not included)...[facility]12-22-20[facility] History of Present illness Narrative* Asia Pike MD - 02/05/2022 8:20 AM EST Images from the original note were not included. [facility] Follow up Portions of this note [...] and snacks patient declined. Indra scale at [facility]: 166.2 lbs per patient. Bed sore on coccyx causing discomfort. Being changed regularly at SNF- reported to be smaller around but still as deep. Patient not very up to date with medications. Patient brought paperwork from [email or web address] with all medications being received. Patient unsure if they have been drawing labs regularly. Last Tac from 01/19: 12.9 and K 5.9. In need of current labs. Lab orders will be sent with patient and follows as below: Kidney [facility] Pancreas Transplant Standing Lab Orders [address] [facility] [address] [place], [place] [address] February 05, 2022 Alex Kate Almonte 1945 [id number] STANDARD TESTING: Diagnosis Codes: Z94.0 Kidney Transplant [...] AT YOUR LABORATORY FACILITY AND FAX TO [phone]. PLEASE CALL [phone]. Provider: Dr. Pike Current Outpatient Medications Medication [...] by mouth daily with lunch. Magic Cup Loving with lunch aspirin, enteric coated (ASPIRIN, ENTERIC [...] complexity. Asia Pike MD documented in this encounterUniversity Hospitals St. John Medical Center12-06-2022 Progress note Author Sadia Aguilar [facility] January 20, 2022 2:21pm Note Date/Time January 20, 2022 2 :21pm [facility] [address] [place] [address] Wound Center Provider Note Signed Patient: Alex Almonte MR#: [id number] : 1945 Acct:[id number] Age/Sex: 76 / M Copies to: DO Sadia Whyte APRN~ HPI Date of Visit Date of Visit: Date of Service: 01/20/2022 Time of Service: 14:17 Narrative HPI: 12/30/21 Alex is a 76 year old male presenting to [facility] wound care for aninitial visit for eval and treatment of a sacral/coccyx area pressure ulcer. He resides at [facility]. There is an CLIPMAN present for the visit. Medicalhoney gel will [...] from initial visit here Mode of Arrival/ Route Sales Delivery Drivers Supervisor: Facility vehicle Assistive Device Used Today: Wheelchair and Indra Lives with:: Care/Nursing Facility Appetite Description: Within Normal Limits Who helps w/ dressing change?: Nursing Facility Why Do You Need Help?: Can't Reach Ulcer, Limited mobility and Taxing effort to leave home Smoking Status: Former smoker [facility] Medical History (Updated 01/20/22 @ 14:21 by [...] Ulcer Pressure Ulcer/Injury Staging: Unstageable Bed Appearance: Del Aire and Yellow Percent of Wound Bed Granulated/Red: 40 Percent of Devitalized: 60 Length (cm): 5.2 Width (cm): 3.4 Depth (cm): 1.8 CM Sq: 17.680 Surrounding Tissue Appearance: Del Aire and Hyperpigmented Surrounding Tissue Temp: Warm Drainage [...] <Electronically signed by DAVID Aguilar> 01/20/22 [address] [facility] Work Phone: 1(460) 445-510312-06-2022 Miscellaneous Notes* Telephone Encounter - Van Olivarez APRN.CNP - 01/20/2022 1:12 PM EST Labs noted from yesterday. Pt is currently residing at [facility], I spoke with the Nurse, the results has been addressed by Physician caring for pt. He had been placed on Chlor Con and this has been discontinued and hyperkalemia has been treated. Van Olivarez APRN.CNP documented in this encounterUniversity Hospitals St. John Medical Center11-28-2022 Surgical operation note* Brief Op Note - Misbah Landis PA-C - 01/12/2022 10:41 AM EST BRIEF OPERATIVE / PROCEDURE NOTE LOG ID: [id number] SURGERY/PROCEDURE DATE: 01/12/2022 INCISION/PROCEDURE START TIME: 10:32 AM INCISION CLOSE/PROCEDURE END TIME: 10:35 AM SURGEON(S)/PROCEDURALIST(S) AND SILO MAN(S): Misbah Landis PA-C SURGERY/PROCEDURE(S): Removal tunneled vascular access catheter under local anesthesia ANESTHESIA: Procedural Sedation FINDINGS: Catheter removed intact ESTIMATED BLOOD LOSS: 0 ml SPECIMENS: None COMPLICATIONS: None PRE-OP/PRE-PROCEDURE DIAGNOSIS: Foot Ulcer POST-OP/POST-PROCEDURE DIAGNOSIS: Same as Preop SIGNATURE: Misbah Landis PA-C PATIENT NAME: Alex Almonte DATE: January 12, 2022 TIME: 10:42 AM documented in this encounterUniversity Hospitals St. John Medical Center11-22-2022 Nurse Note* Laxmi Archibald RN - 01/06/2022 1:55 PM EST Pre-procedure instructions: Contacted patient's sister, Munira Brothers and nurse at [facility], Jada ([phone]) andconfirmed appt. for Gerhard removal scheduled on 01/12/22, at [facility]. If instructions are not followed your procedure [...] signed. Arrival at 9:30am to desk [facility] and check in for your procedure. Retail Sales Associate Bilingual/Transportation: How will you be arriving for your procedure? Ambulance service. To be arranged by [facility]. If you develop any of the following symptoms before your procedure, please call [phone]. Chills, joint pain, rash, sore throat, cough, loss of smell, reddened eyes, vomiting, abdominal pains, diarrhea, loss of taste, severe headache, weakness, bruising or bleeding, fever, muscle pain, shortness of breath Recovery expectations: You can expect to be in recovery for 30 minutes following the procedure. Written instructions provided to patient via [employer] If you have any questions please call [phone] documented in this encounterUniversity Hospitals St. John Medical Center11-15-2022 Progress note Author Sadia Aguilar [facility] December 30, 2021 1:49pm Note Date/Time December 30, 2021 1:49pm [facility] EN[facility] [address] [place] [address] Wound Center Provider Note Signed Patient: Alex Almonte MR#: [id number] : 1945 Acct:[id number] Age/Sex: 76 / M Copies to: DO Sadia Whyte APRN~ HPI Date of Visit Date of Visit: Date of Service: 12/30/2021 Time of Service: 13:44 Narrative HPI: 12/30/21 Alex is a 76 year old male presenting to [facility] wound care for aninitial visit for eval and treatment of a sacral/coccyx area pressure ulcer. He resides at [facility]. There is an CLIPMAN present for the visit. Medicalhoney gel will [...] start?: 4 weeks ago Mode of Arrival/ Route Sales Delivery Drivers Supervisor: Facility vehicle Assistive Device Used Today: Wheelchair and Indra Lives with:: Care/Nursing Facility Appetite Description: Within Normal Limits Who helps w/ dressing change?: Nursing Facility Why Do You Need Help?: Can't Reach Ulcer, Limited mobility and Taxing effort to leave home Smoking Status: Former smoker [facility] Medical History (Updated 12/30/21 @ 13:49 by [...] 0.1 CM Sq: 38.500 Surrounding Tissue Appearance: Del Aire and Hyperpigmented Surrounding Tissue Temp: Warm Drainage [...] By: <Electronically signed by DAVID Aguilar> 12/30/21 [address] [facility] Work Phone: 1(387) 251-396511-15-2022 History of Present illness Narrative* Paresh Fonseca [...] the rehab facility He is currently at [facility] in [facility] Seen on video together with Zoe -history obtained from bedside nursing. he is getting up in a chair, working with PT diet is back to regular hes doing well. much improved since admission to 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 has scabs on the R lateral side but no wound care concerns. It continues to heal. He has a follow-up with vascular surgery later December 2021. has a sacral wound -- he has local wound care following this at [facility] WBC 6.0, creatinine -- 0.8. alt 12 [...] by mouth daily with lunch. Magic Cup Loving with lunch aspirin, enteric coated (ASPIRIN, ENTERIC [...] is a 76 year old male from [facility]. Here today for copat follow-up for vancomycin x4 weeks for MRSA bacteremia He was transferred from [facility] TO [facility] on 11/28/2021 for further surgical management of infected right heel He has a past medical history of kidney transplant in 2001, left [facility] from previously infected foot ulcers and multiple foot surgeries. History of PAD CAD status post CABG, diabetes, atrial fibrillatioN He originally presented [facility] for having altered mental status and [...] 3. Status post right heel I&D at [facility] on 11/24/2021. 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 4. CKD - s/p gerhard placement 5. immunocompromised Status post right open above the ankle /17 - Enterobacter and MRSA from cultures Gram-positive [...] will need to coordinate with his SNF [phone] --our ID office will need to arrange for IR gerhard removal. Return to ID as needed 10 Minutes spent via virtual visit. SIGNATURE: Paresh Fonseca MD PATIENT NAME: Alex Almonte DATE: December 30, 2021 TIME: 9:52 AM documented in this encounterUniversity Hospitals St. [facility] Center11-01-2022 Miscellaneous Notes* Telephone Encounter - Sulma Pardo - 12/16/2021 3:13 PM EDT Pt occupational therapy technician is requesting orders for Stomp ampushield to be taken off pressure relief because it is causing sores on the thigh. Thanks, Sulma Pardo Production Crew Supervisor documented in this encounterUniversity Hospitals St. John [facility] Center10-31-2022 Miscellaneous Notes* Telephone Encounter - Gwen Alfredo Adm Asst I - 12/15/2021 4:11 PM EDT Rupa LYLES from [facility] [phone] called to report IV Vancomycin was started until today. Patient missed 3 days, should patient makeup missed doses? Please advise. Gwen Alfredo Adm Asst I documented in this encounterUniversity Hospitals St. John Medical Center10-21-2022 Instructions* Patient Instructions* Paresh Fonseca MD - [...] serious illness Are taking any medications (prescription, tdsk-zop-fmtzxbe, vitamins, or herbal products) How will I receive EVUSHELD? EVUSHELD consists of two investigational medicines, tixagevimab and cilgavimab. You will receive 1 dose of EVUSHELD, consisting of 2 separate injections (tixagevimab and cilgavimab). EVUSHELD will be given to you by your healthcare provider as 2 intramuscular injections, given one after the other. Viruses can pattern changer time (mutate) and develop into a slightly [...] caused by certain SARS-CoV-2 variants: Viruses can pattern changer time (mutate) and develop into a slightly [...] treatment or prevention of COVID-19 go to https://www.fda.gov/ekijrwygn-ehkjwosgrmnn-com- response/mlm-agggv-xbsyugsutf-ifh-jufgpc-nuqfkygkt/fipghqlbs-pzb-qimskksihgybo for more information. It is your choice [...] to FDA MedWatch at www.fda.gov/medwatch or call 4-181-UFZ-4929 or call [employer]ake . Additional Information If you have questions, visit the website or call the telephone number provided below. Website Telephone number http://www.W-locateusheldsnapp.me How can I learn more about COVID-19? Ask your healthcare provider. Visit https://www.cdc.gov/COVID19 Contact your local or state public health department. What is an Emergency Use Authorization? The [place] FDA has made EVUSHELD (tixagevimab co-packaged with cilgavimab) available under an emergency access mechanism called an Emergency Use Authorization EUA. The EUA is supported by a Weed Sprayer of Health and Human Service ([facility]) declaration that circumstances exist to justify the [...] monohydrate, polysorbate 80, sucrose, water. Distributed by: [employer], [place], [place] Manufactured for: [employer], [place], [place] [employer] 2021. All rightsreserved. documented in this encounterUniversity Hospitals St. John Medical Center10-21-2022 Miscellaneous Notes* Telephone Encounter - Paresh Fonseca MD - 12/05/2021 3:05 PM EDT Evusheld (tixagevimab/cilgavimab) Eligibility and Patient Discussion The patient agrees to receive Evusheld (tixagevimab 300 mg and cilgavimab 300 mg) at [facility]. The patient verbalized understanding of repeating a COVID test 72 hours prior to the injections. called up patient in response to her ZEB message today she tested covid negative on a rapid test on Wednesday this week Discussed evushed fact sheet and she agrees to proceed she will retest again today to be scheduled for Friday 12/08 at [facility] Paresh Fonseca MD documented in this encounterUniversity Hospitals St. John [facility] Center10-03-2022 Instructions* Patient Instructions* No Reeder DO - 11/17/2021 4:26 PM EDT -- continue coumadin -- will get vascular ultrasound for vein and artery of your right leg -- will have you see my interventional cardiology partner regarding your peripheral artery disease and if your artery disease is impairing your wound healing for the leg ulcer documented in this encounterUniversity Hospitals St. John [facility] Center10-03-2022 History of Present illness Narrative* No Reeder DO - 11/17/2021 3:53 PM EDT Images from the original note were not included. [facility] Department of Cardiovascular Medicine SECTION [...] DVT scan. Leg elevation. No Reeder DO, [facility] Vascular Medicine documented in this encounter[address]16-2022 History of Past illness Narrative* Problem Noted Date Resolved Date Altered tissue perfusion 2 022 documented as of this encounter (statuses as of 09/30/2021) [address]16-2022 History of Past illness Narrative* Problem Noted Date Resolved Date Altered tissue perfusion 2 022 documented as of this encounter (statuses as of 10/09/2021) [address]16-2022 History of Past illness Narrative* Problem Noted Date Resolved Date Altered tissue perfusion 2 022 documented as of this encounter (statuses as of 11/18/2021) [address]16-2022 History of Past illness Narrative* Problem Noted Date Resolved Date Altered tissue perfusion 2 022 documented as of this encounter (statuses as of 12/01/2021) [address]16-2022 History of Past illness Narrative* Problem Noted Date Resolved Date Altered tissue perfusion 16/2 022 documented as of this encounter (statuses as of 12/05/2021) [address]16-2022 History of Past illness Narrative* Problem Noted Date Resolved Date Altered tissue perfusion 16/2 022 documented as of this encounter (statuses as of 12/08/2021) [address]16-2022 History of Past illness Narrative* Problem Noted Date Resolved Date Altered tissue perfusion 16/2 022 documented as of this encounter (statuses as of 12/08/2021) [address]16-2022 History of Past illness Narrative* Problem Noted Date Resolved Date Altered tissue perfusion 16/2 022 documented as of this encounter (statuses as of 12/12/2021) [address]16-2022 History of Past illness Narrative* Problem Noted Date Resolved Date Altered tissue perfusion 16/2 022 documented as of this encounter (statuses as of 12/15/2021) [address]16-2022 History of Past illness Narrative* Problem Noted Date Resolved Date Altered tissue perfusion 16/2 022 documented as of this encounter (statuses as of 12/16/2021) [address]16-2022 History of Past illness Narrative* Problem Noted Date Resolved Date Altered tissue perfusion 16/2 022 documented as of this encounter (statuses as of 12/31/2021) [address]16-2022 History of Past illness Narrative* Problem Noted Date Resolved Date Altered tissue perfusion 16/2 022 documented as of this encounter (statuses as of 01/13/2022) [address]16-2022 History of Past illness Narrative* Problem Noted Date Resolved Date Altered tissue perfusion 16/2 022 documented as of this encounter (statuses as of 01/20/2022) [address]16-2022 History of Past illness Narrative* Problem Noted Date Resolved Date Altered tissue perfusion 16/2 022 documented as of this encounter (statuses as of 02/06/2022) [address]16-2022 History of Past illness Narrative* Problem Noted Date Resolved Date Altered tissue perfusion 16/2 022 documented as of this encounter (statuses as of 02/20/2022) [address]16-2022 History of Past illness Narrative* Problem Noted Date Resolved Date Altered tissue perfusion 16/2 022 documented as of this encounter (statuses as of 02/26/2022) [address]16-2022 History of Past illness Narrative* Problem Noted Date Resolved Date Altered tissue perfusion 16/2 022 documented as of this encounter (statuses as of 02/27/2022) [address]16-2022 History of Past illness Narrative* Problem Noted Date Resolved Date Altered tissue perfusion 16/2 022 documented as of this encounter (statuses as of 03/21/2022) [address]16-2022 History of Past illness Narrative* Problem Noted Date Resolved Date Altered tissue perfusion 16/2 022 documented as of this encounter (statuses as of 03/30/2022) [address]16-2022 History of Past illness Narrative* Problem Noted Date Resolved Date Altered tissue perfusion 16/2 022 documented as of this encounter (statuses as of 04/06/2022) [place] [address] History of Past illness Narrative* Problem Noted Date Resolved Date Altered tissue perfusion 16/2 022 documented as of this encounter (statuses as of 05/13/2022) [facility] History of Past illness Narrative* Problem Noted Date Diagnosed Date Resolved Date Altered tissue perfusion documented as of this encounter (statuses as of 2022) [facility]16[facility] History of Past illness Narrative* Problem Noted Date Diagnosed Date Resolved Date Altered tissue perfusion documented as of this encounter (statuses as of 10/29/2022) [facility]08-16-2022 Miscellaneous Notes* Telephone Encounter - Katina Duque [...] to pharmacy. Katina Duque documented in this encounterUniversity Hospitals St. John Medical Center05-31-2022 Miscellaneous Notes* Telephone Encounter - Van Olivarez [...] and advise. Rosibel Daniel documented in this encounterUniversity Hospitals St. John Medical Center04-21-2022 Miscellaneous Notes* Telephone Encounter - Van Olivarez APRN.CNP - 06/05/2021 4:46 PM EDT Spoke with pt regarding latest results, scr. at baseline. TAC level 8.6 prev two levels in 5 range.He believes latest level would be 12hr trough. No changes for now, if next level >7, can consider if reduction appropriate. He understands. Van Olivarez APRN.CNP [facility] [place] [facility]* Diagnosis Screening for genitourinary condition Screening for other and unspecified genitourinary condition documented in this encounter [facility] [place] [facility] note* Diagnosis Acute deep vein thrombosis (DVT) of proximal end of right lower extremity ([facility])- Primary PAD (peripheral artery disease) ([facility]) Peripheral vascular disease, unspecified Nonhealing ulcer of heel ([facility]) Anticoagulation management encounter Encounter for therapeutic drug monitoring documented in this encounter [facility] [place] [facility] note* Diagnosis Encounter for prophylactic measures, unspecified- Primary documented in this encounter [facility] [place] [facility] note* Diagnosis Kidney replaced by transplant- Primary documented in this encounter [facility] [place] [facility] note* Diagnosis MRSA bacteremia- Primary Bacteremia Diabetic foot ulcer with osteomyelitis ([facility]) Type II or unspecified type diabetes mellitus with other specified manifestations, not stated as uncontrolled ILIANA (acute kidney injury) ([facility]) Acute kidney failure, unspecified documented in this encounter [facility] [place] [facility] note* Diagnosis Kidney replaced by transplant- Primary 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 [facility] current use of immunosuppressive drug documented in this encounter [facility] [place] [facility] note* Diagnosis Hx of BKA, right ([facility])- Primary PAD (peripheral artery disease) ([facility]) Peripheral vascular disease, unspecified Mixed hyperlipidemia due to type 2 diabetes mellitus ([facility]) Type II or unspecified type diabetes mellitus with renal manifestations, uncontrolled(250.42) Type II or unspecified type diabetes mellitus with renal manifestations, uncontrolled Type 2 diabetes mellitus with diabetic neuropathy, with long-term current use of insulin (HCC) Type 2 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, with long-term current use of insulin (HCC) Paroxysmal atrial fibrillation (HCC) Atrial fibrillation documented in this encounter [facility] [place] [facility] note* Diagnosis Screening for genitourinary condition Screening for other and unspecified genitourinary condition documented in this encounter [facility] [place] [facility] note* Diagnosis Onset Date Resolution Status At high risk for skin breakdown chronic Diabetes chronic Fecal incontinence chronic Limited mobility chronic Poor appetite chronic Pressure ulcer of sacral region, unstageable chronic Candidiasis resolved [facility] Work Phone: Evaluation noteNo InformationNoMain Line Health/[facility] [employer] Other Evaluation note* Diagnosis Kidney replaced by transplant- Primary documented in this encounter [facility] Narrative - Reported* Type Description [...] COLONOSCOPY 1995,2001, 2014 Hospitalization History see above [employer] Other Progress note Author Sadia Aguilar [facility] July 20, 2022 1:48pm Note Date/Time July 20, 2022 1:48p m [facility] ENTER [address] [place] [address] Wound Center Provider Note Signed Patient: Alex Almonte MR#: [id number] : 1945 Acct:[id number] Age/Sex: 76 / M Copies to: DO Sadia Whyte APRN~ HPI Date of Visit Date of Visit: Date of Service: 07/20/2022 Time of Service: 13:46 Narrative HPI: 12/30/21 Alex is a 76 year old male presenting to [facility] wound care for aninitial visit for eval and treatment of a sacral/coccyx area pressure ulcer. He resides at [facility]. There is an CLIPMAN present for the visit. Medicalhoney gel will [...] his brief that was cleaned by this content writer as well as another nursing staff [...] from initial visit here Mode of Arrival/ Route Sales Delivery Drivers Supervisor: Facility vehicle Assistive Device Used Today: Wheelchair and Indra Lives with:: Care/Nursing Facility Appetite Description: Within Normal Limits Who helps w/ dressing change?: Nursing Facility Why Do You Need Help?: Can't Reach Ulcer, Limited mobility and Taxing effort to leave home Smoking Status: Former smoker [facility] Medical History (Updated 03/03/22 @ 14:41 by [...] <Electronically signed by DAVID Aguilar> 07/20/22 [address] [facility] Work Phone: Reason for referral (narrative)* Outpatient Procedure (Routine) - Authorized Specialty Diagnoses / Procedures Referred By Contac t Referred To Contact [facility] [place] Diagnoses PAD (peripheral artery disease) (HCC) Nonhealing ulcer of heel (HCC) Procedures US LEG ARTERIAL PERIPH UNL VAS LAB DUP-SCAN LXTR ART/ARTL BPGS UNI/LMTD STUDY No Reeder DO [address] [place] [address] [facility] [place] [address] Referral ID Status Reason Start Date Expiration Date Visits Requested Visits Authorized [id number] Authorized Auto-Generat ed Referral 11/17/2021 11/17/2022 1 1 * Outpatient Procedure (Routine) - Authorized Specialty Diagnoses / Procedures Referred By Contac t Referred To Contact [facility] Diagnoses Acute deep vein thrombosis (DVT) of proximal end of right lower extremity (HCC) Procedures US LEG VEIN DVT UNL VAS LAB DUP-SCAN XTR VEINS UNILATERAL/LIMITED STUDY No Reeder DO [address] [place] [id number] [place] [address] Referral ID Status Reason Start Date Expiration Date Visits Requested Visits Authorized [id number] Authorized Auto-Generat ed Referral 11/17/2021 11/17/2022 1 1 * Consult, Test, Treat (Routine) - Authorized Specialty Diagnoses / Procedures Referred By Contac t Referred To Contact Cardiology Diagnoses PAD (peripheral artery disease) (HCC) Nonhealing ulcer of heel (HCC) Procedures CONSULT TO CARDIOLOGY OFFICE/OUTPATIENT [facility] 60-74 MINUTES Savanah Marcelo MD [address] [place] [address] Referral ID Status Reason Start Date Expiration Date Visits Requested Visits Authorized [id number] Authorized PCP Requested Referral 11/17/2021 11/17/2022 [address] [facility] Summary Purpose Family History Relationship Condition Age at Onset Recorded Date/T kartik father Aneurysm Unknown father Parkinson's disease Unknown Advance Directives Documents on File Type Date Recorded Patient Street Light Inspector Expl anation Advance Directive(s) Latest Code Status [...] Maker Relationship: M ajority of Adult Siblings (artist representative) DNR-CCA 09/26/2021 11:56 AM 10/01/2021 2:18 [...] Decision Maker Relationship: Majority of Adult Siblings (artist representative) Code Status History Code Status Date [...] Reason for Visit Chief Complaint Open Wound ([facility]) Reason for Visit At high risk for ski n breakdown Diabetes Fecal incontinence Limited mobility Poor appetite Pressure ulcer of sacral region, unstageable Candidiasis Additional Source Comments (unrecognized sect ion and content) No Status Records FoundNo Status Records FoundNo Status Records FoundNo Status Records FoundNo Status Records Found INFORMATION SOURCE (unrecogn ized section and content) DATE CREATED AUTHOR 02/20/2021 [employer] DATE CREATED AUTHOR AUTHOR'S ORGANIZ ATION 07/25/2022 [facility] DATE CREATED AUTHOR AUTHOR'S ORGANIZ ATION 08/16/2022 [facility] DATE CREATED AUTHOR AUTHOR'S ORGANIZ ATION 09/17/2022 [facility] DATE CREATED AUTHOR AUTHOR'S ORGANIZ ATION 01/14/2023 [facility] Source Comments (unrecognize d section and content) In the event this informatio n is protected by the Federal Confidentiality of Alcohol and Drug Abuse Patient Records regulations: The Federal rules restrict any use of the information to criminally investigate or prosecute any alcohol or drug abuse patient.[facility] CenterIn the event this information is protected by the Federal Confidentiality of Alcohol and Drug Abuse Patient Records regulations: The Federal rules restrict any use of the information to criminally investigate or prosecute any alcohol or drug abuse patient.[facility] CenterIn the event this information is protected by the Federal Confidentiality of Alcohol and Drug Abuse Patient Records regulations: The Federal rules restrict any use of the information to criminally investigate or prosecute any alcohol or drug abuse patient.[facility] CenterIn the event this information is protected by the Federal Confidentiality of Alcohol and Drug Abuse Patient Records regulations: The Federal rules restrict any use of the information to criminally investigate or prosecute any alcohol or drug abuse patient.[facility] CenterIn the event this information is protected by the Federal Confidentiality of Alcohol and Drug Abuse Patient Records regulations: The Federal rules restrict any use of the information to criminally investigate or prosecute any alcohol or drug abuse patient.[facility] CenterIn the event this information is protected by the Federal Confidentiality of Alcohol and Drug Abuse Patient Records regulations: The Federal rules restrict any use of the information to criminally investigate or prosecute any alcohol or drug abuse patient.[facility] CenterIn the event this information is protected by the Federal Confidentiality of Alcohol and Drug Abuse Patient Records regulations: The Federal rules restrict any use of the information to criminally investigate or prosecute any alcohol or drug abuse patient.[facility] CenterIn the event this information is protected by the Federal Confidentiality of Alcohol and Drug Abuse Patient Records regulations: The Federal rules restrict any use of the information to criminally investigate or prosecute any alcohol or drug abuse patient.[facility] CenterIn the event this information is protected by the Federal Confidentiality of Alcohol and Drug Abuse Patient Records regulations: The Federal rules restrict any use of the information to criminally investigate or prosecute any alcohol or drug abuse patient.[facility] CenterIn the event this information is protected by the Federal Confidentiality of Alcohol and Drug Abuse Patient Records regulations: The Federal rules restrict any use of the information to criminally investigate or prosecute any alcohol or drug abuse patient.[facility] CenterIn the event this information is protected by the Federal Confidentiality of Alcohol and Drug Abuse Patient Records regulations: The Federal rules restrict any use of the information to criminally investigate or prosecute any alcohol or drug abuse patient.[facility] CenterIn the event this information is protected by the Federal Confidentiality of Alcohol and Drug Abuse Patient Records regulations: The Federal rules restrict any use of the information to criminally investigate or prosecute any alcohol or drug abuse patient.[facility] CenterIn the event this information is protected by the Federal Confidentiality of Alcohol and Drug Abuse Patient Records regulations: The Federal rules restrict any use of the information to criminally investigate or prosecute any alcohol or drug abuse patient.[facility] CenterIn the event this information is protected by the Federal Confidentiality of Alcohol and Drug Abuse Patient Records regulations: The Federal rules restrict any use of the information to criminally investigate or prosecute any alcohol or drug abuse patient.[facility] CenterIn the event this information is protected by the Federal Confidentiality of Alcohol and Drug Abuse Patient Records regulations: The Federal rules restrict any use of the information to criminally investigate or prosecute any alcohol or drug abuse patient.[facility] CenterIn the event this information is protected by the Federal Confidentiality of Alcohol and Drug Abuse Patient Records regulations: The Federal rules restrict any use of the information to criminally investigate or prosecute any alcohol or drug abuse patient.[facility] CenterIn the event this information is protected by the Federal Confidentiality of Alcohol and Drug Abuse Patient Records regulations: The Federal rules restrict any use of the information to criminally investigate or prosecute any alcohol or drug abuse patient.[facility] CenterIn the event this information is protected by the Federal Confidentiality of Alcohol and Drug Abuse Patient Records regulations: The Federal rules restrict any use of the information to criminally investigate or prosecute any alcohol or drug abuse patient.[facility] CenterIn the event this information is protected by the Federal Confidentiality of Alcohol and Drug Abuse Patient Records regulations: The Federal rules restrict any use of the information to criminally investigate or prosecute any alcohol or drug abuse patient.[facility] CenterIn the event this information is protected by the Federal Confidentiality of Alcohol and Drug Abuse Patient Records regulations: The Federal rules restrict any use of the information to criminally investigate or prosecute any alcohol or drug abuse patient.[facility] CenterIn the event this information is protected by the Federal Confidentiality of Alcohol and Drug Abuse Patient Records regulations: The Federal rules restrict any use of the information to criminally investigate or prosecute any alcohol or drug abuse patient.[facility] CenterIn the event this information is protected by the Federal Confidentiality of Alcohol and Drug Abuse Patient Records regulations: The Federal rules restrict any use of the information to criminally investigate or prosecute any alcohol or drug abuse patient.University [facility] the event this information is protected by the Federal Confidentiality of Alcohol and Drug Abuse Patient Records regulations: The Federal rules restrict any use of the information to criminally investigate or prosecute any alcohol or drug abuse patient.[facility] the event this information is protected by the Federal Confidentiality of Alcohol and Drug Abuse Patient Records regulations: The Federal rules restrict any use of the information to criminally investigate or prosecute any alcohol or drug abuse patient.[facility] the event this information is protected by the Federal Confidentiality of Alcohol and Drug Abuse Patient Records regulations: The Federal rules restrict any use of the information to criminally investigate or prosecute any alcohol or drug abuse patient.[facility] the event this information is protected by the Federal Confidentiality of Alcohol and Drug Abuse Patient Records regulations: The Federal rules restrict any use of the information to criminally investigate or prosecute any alcohol or drug abuse patient.[facility] Reason for Visit (unrecogniz ed section and [...] Care Teams (unrecognized sec tion and content) Adoption Specialist Relationship Specialty Start Date End Date Devon Moreira, DO [address] [place] [address] PCP - General 05/27/00 Adoption Specialist Relationship Specialty Start Date End Date Devon Moreira, DO [address] [place] [address] PCP - General 05/27/00 Adoption Specialist Relationship Specialty Start Date End Date Devon Moreira, DO [address] [place] [address] PCP - General 05/27/00 Adoption Specialist Relationship Specialty Start Date End Date Devon Moreira, DO [address] [place] [address] PCP - General 05/27/00 Adoption Specialist Relationship Specialty Start Date End Date Devon Moreira, DO [address] [place] [address] PCP - General 05/27/00 Adoption Specialist Relationship Specialty Start Date End Date Devon Moreira, DO [address] [place] [address] PCP - General 05/27/00 Adoption Specialist Relationship Specialty Start Date End Date Devon Moreira, DO [address] [place] [address] PCP - General 05/27/00 Adoption Specialist Relationship Specialty Start Date End Date Devon Moreira, DO [address] [place] [address] PCP - General 05/27/00 Adoption Specialist Relationship Specialty Start Date End Date Devon Moreira, DO [address] [place] [address] PCP - General 05/27/00 Adoption Specialist Relationship Specialty Start Date End Date Devon Moreira, DO [address] [place] [address] PCP - General 05/27/00 Adoption Specialist Relationship Specialty Start Date End Date Devon Moreira, DO [address] [place] [address] PCP - General 05/27/00 Adoption Specialist Relationship Specialty Start Date End Date Devon Moreira, DO [address] [place] [address] PCP - General 05/27/00 Adoption Specialist Relationship Specialty Start Date End Date Devon Moreira, DO [address] [place] [address] PCP - General 05/27/00 Adoption Specialist Relationship Specialty Start Date End Date Devon Moreira, DO [address] [place] [address] PCP - General 05/27/00 Adoption Specialist Relationship Specialty Start Date End Date Devon Moreira, DO [address] [place] [address] PCP - General 05/27/00 Adoption Specialist Relationship Specialty Start Date End Date Devon Moreira, DO [address] [place] [address] PCP - General 05/27/00 Adoption Specialist Relationship Specialty Start Date End Date Devon Moreira, DO [address] [place] [address] PCP - General 05/27/00 Adoption Specialist Relationship Specialty Start Date End Date Devon Mroeira, DO [address] [place] [address] PCP - General 05/27/00 Adoption Specialist Relationship Specialty Start Date End Date Devon Moreira DO [address] [place] [address] PCP - General 05/27/00 Team Status: Active Member Role Status Dates Devon Lillie Primary Care Provider Active Team Status: Inactive Member Role Status Dates Devon Moreira Primary Care Provider Active Sadia Aguilar APRN Attending Provider Active Adoption Specialist Relationship Specialty Start Date End Date Devon Moreira DO [address] [place] [address] PCP - General 05/27/00 Adoption Specialist Relationship Specialty Start Date End Date Devon Moreira DO [address] [place] [address] PCP - General 05/27/00 PRN Active and Recently Administ ered Medications (unrecognized section and content) Medication Order 01/10/2022 01/11/2022 01/12/2022 lidocaine (PF) 10 mg/mL (1 %) injection (XYLOCAINE) SUBCUTANEOUS, X (OR/PROCEDURE) PRN, Starting on Wed01/12/22 at 1032, Until Wed01/13/22 at 0303, Intraprocedure 1032 (Given - Provid er: Vani Hdz APRN.OIL PROGRAM COMPLIANCE SPECIALIST) Goals (unrecognized section and content) Goals may [...] BE BASED ON THE PRIMARY CLINICAL RECORDS. [employer] provides no warranty or guarantee of the accuracy or completeness of information in this document.
[2023-02-26 08:38] LABS: Basophils Percent Auto 0.5 % (0.2-2.0); Eosinophils Absolute Auto 0.2 10^3/uL (0.0-0.7); Eosinophils Percent Auto 3.8 % (0.9-7.0); Hematocrit 35.7 % (42.0-54.0); Hemoglobin 11.4 g/dL (14.0-18.0); Immature Granulocytes Abs Auto 0.06 10^3/uL (0.00-0.03); Immature Granulocytes Pct Auto 1.1 % (0.0-0.5); Lymphocytes Absolute Auto 1.7 10^3/uL (1.2-3.8); Lymphocytes Percent Auto 30.3 % (20.5-60.0); Mean Corpuscular HGB Conc 31.9 g/dL (29.9-35.2); Mean Corpuscular Hemoglobin 27.5 pg (25.9-34.0); Mean Corpuscular Volume 86.2 fL (80.0-94.0); Mean Platelet Volume 10.4 fL (9.5-13.5); Monocytes Absolute Auto 0.6 10^3/uL (0.3-0.8); Monocytes Percent Auto 10.2 % (1.7-12.0); Neutrophils Percent Auto 54.1 % (43.0-75.0); Platelet Count 248 10^3/uL (150-450); Red Blood Count 4.14 10^6/uL (4.70-6.10); Red Cell Distribution Width 14.5 % (11.0-15.0); White Blood Count 5.6 10^3/uL (4.0-11.0)
[2023-02-26 09:03] LABS: INR 3.55
[2023-02-26 09:04] LABS: Alanine Aminotransferase 11 U/L (16-63); Albumin Globulin Ratio 0.7; Albumin Level 2.5 g/dL (3.4-5.0); Alkaline Phosphatase 66 U/L (46-116); Anion Gap 13.1; Aspartate Amino Transferase 18 U/L (15-37); BUN Creatinine Ratio 31.1; Bilirubin Total 0.8 mg/dL (0.2-1.0); Calcium 8.6 mg/dL (8.5-10.1); Carbon Dioxide 26.2 mmol/L (21.0-32.0); Chloride 103 mmol/L (98-107); Estimated GFR (African America >60 (>=60); Estimated GFR (Non-African Ame 51 (>=60); Globulin 3.6 g/dL; Glucose 228 mg/dL (74-106); Potassium 4.3 mmol/L (3.5-5.1); Sodium 138 mmol/L (136-145); Total Protein 6.1 g/dL (6.4-8.2)
== END 2023-02-26 00:54 | disposition home or self-care (01) ==
LOC: LAB 00:53
PROVIDERS: PCP Internal Medicine; Visit Provider Internal Medicine
DX: Z51.81 Encounter for therapeutic drug level monitoring (principal)
CPT/HCPCS: 36415; 80053; 80197; 85025; 85610

== ENCOUNTER 2023-03-03 01:06 | Outpatient (REF) | payer MEDICARE, OTHER, SELFPAY ==
--- OUTSIDE RECORDS SUMMARY | 2023-03-03 01:10 | XMS_ITS | CCD ---
Author Name Unknown Address [address] [place] [address] Organization [facility] Care Team Providers Care Software Publisher Name Role Phone PROVIDER, UNKNOWN Attending Unavailable [...] Unavailable BALL, DR OSORIO Primary Care Unavailable LILLIE, DR OSORIO Consulting Unavailable LILLIE, DR OSORIO [...] Drug Allergy 2 GI Upset [facility] Work Phone: (1 source) ALLERGIES NOT ON FILE; Translations: [ALLERGIES NOT ON FILE] Propensity to adverse reactions (disorder) [facility] Repository Medications Current Medications Medication Drug Class(es) [...] 0 Active take 2 tablets by mo [facility] every six hours as needed for pain [...] MEALS January 23, 2019 1:00am K Phos [place]-Sod Phos Di & [place] [phone] MG (5 sources) take 155-852 tablets by mouth twice daily K Phos [place]-Sod Phos Di & [place] [phone] MG 1 tablet Orally twice daily Active take 155-852 tablets by mouth four times daily take 155-852 tablets by mouth four times daily K Phos [place]-Sod Phos Di & [place] [phone] MG 1 tablet Orally Four times [...] needed. docusate sodium 50 mg / sennosides, senior living 8.6 mg oral tablet (20 sources) Start: [...] by mouth daily with lunch. Magic Cup Burke with lunch 7110 mL 0 12/11/2021 Active Comment on above: Take 237 mL by mouth daily with lunch. 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] Onset: 7 [...] current use of immunosuppressive drug; Translations: [Other prison (current) drug therapy] Episodic Other aftercare (12 sources) Long-term current use of insulin; Translations: [intermediate (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 of insulin] Episodic Other aftercare (10 sources) intermediate (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 of insulin; Translations: [LABOR SPECIALIST CURRENT USE OF INSULIN] Onset: 2 Episodic Other aftercare (5 sources) intermediate (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 of anticoagulants; Translations: [RETIREMENT CURRNT USE ANTICOAGULANTS] Onset: 3 Episodic Other [...] 07-30-2006 Episodic Other aftercare (2 sources) Other prison (current) drug therapy; Translations: [OTH LABOR SPECIALIST CURRENT DRUG THERAPY] Onset: 02-05-2022 Episodic Other aftercare (4 sources) Encounter for orthopedic aftercare following surgical amputation; Translations: [ENC ORTHOPED AFTERCARE FLW SURG AMP] Onset: 02-05-2022 Episodic Other aftercare (4 sources) intermediate card tender (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 of antibiotics; Translations: [RETIREMENT CURRENT USE ANTIBIOTICS] Onset: 12-20-2021 Episodic Other aftercare (1 source) intermediate (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 of aspirin; Translations: [RETIREMENT CURRENT USE OF ASPIRIN] Onset: 01-19-2022 Episodic [...] Test Name Value Interpretation Reference Range Facility [facility] ALEX ALMON[facility] ([id number]) 1945 M Date Time Provider Department 12/25/22 KIDNEY TXP COORDINATORS TXCTGL During your visit today, we recorded the following information about you: Duane Ryan 12/25/2022 10:41 AM Signed Labs 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 Magic Cup Burke with lunch aspirin, enteric coated (ASPIRIN, ENTERIC [...] in am? thanks! RF Pts RN at [facility] reports pts sister picks up Rx from [...] Apply 0. (more content not included)... Normal [facility] Office Visiton 09-09-2022 Follow-up visit [id number] Alex Almonte 1945 M Date Provider Department Center 09/09/2022 1596-SARTHAK PARNELL [facility] Family History Problem Relation Age of Onset Cancer Mother Aneurysm Father Cancer Father Parkinsonism Father Family Status - Relation Status Age at Mother Father Level of Service:17998 [place] OFFICE/OUTPATIENT ESTABLISHED MOD MDM 30-39 MIN Normal [facility] Glucose Poct Glucometerson 0 07-20-2022 Commemt1 Glu2: Cleaned Meter Normal [facility] Comment on above: Result Comment: PERF ORMED BY: [facility] [address] [place] [address] PATHOLOGIST INFANTRY UNIT LEADER JOSE F ELLIOTT M.D. Performed By: #### G LULS #### Point of Care testing , Glucose [Mass/Vol] 176 mg/dL Normal [facility] Comment on above: Result Comment: [facility] Glucose Reference Range is dependent on time and content of last meal. Glucose of more than 200 mg/dL in a nonstressed, ambulatory subject supports the diagnosis of Diabetes Mellitus. Performed By: #### G LULS #### Point of Care testing , FK506 (TACROLIMUS) WHOLE BLO ODon 07-12-2022 Tacrolimus (FK506), Blood 10.9 ng/mL Normal 2.0-20.0 [facility] Comment on above: Result Comment: Trou gh (immediately following transplant) 15.0 . Trough (steady state, 2 weeks or more after transplant): 3.0 - 8.0 . Performed by LC-MS/MS technology. Performed By: #### F K506T ####[facility] [address] [place], [place] [address]Dr. Farhat Leal CBC AUTO DIFFon 07-10-2022 BASO # 0.0 103/ul Normal 0.0-0.1 [facility] Comment on above: Performed By: #### C BC ####[facility] N[address] [place], [place] [address]Dr. Farhat Leal Basophils/100 WBC (Bld) 0.5 % Normal 0.2-2.0 [facility] Comment on above: Performed By: #### C BC ####[facility] Kwm[address]ite[address] [place], [place] [address]Dr. Farhat Leal EO # 0.3 103/ul Normal 0.0-0.7 [facility] Comment on above: Performed By: #### C BC ####[facility] [address] [place], [place] [address]Dr. Farhat Leal Eosinophils/100 WBC (Bld) 4.9 % Normal 0.9-7.0 [facility] Comment on above: Performed By: #### C BC ####[facility] Fx[address]un[address] [place], [place] [address]Dr. Farhat Leal Erythrocyte distribution width (RBC) [Ratio] 13.8 % Normal 11.0-15.0 [facility] Comment on above: Performed By: #### C BC ####[facility] [address] [place], [place] [address]Dr. Farhat Leal Hematocrit (Bld) [Volume fraction] 36.6 % Critically low 42.0-54.0 [facility] Comment on above: Performed By: #### C BC ####[facility] X[address]ks[address] [place], [place] [address]Dr. Farhat Leal Hemoglobin (Bld) [Mass/Vol] 12.2 g/dL Critically low 14.0-18.0 [facility] Comment on above: Performed By: #### C BC ####[facility] [address] [place] [id number]. Madelynlorri Elvis IG # 0.01 10e3/ul Normal 0.00-0.03 [facility] Comment on above: Performed By: #### C BC ####[facility] [address]qwmzo[address] [place] [phone]. Farhat Leal IG % 0.2 % Normal 0.0-0.5 [facility] Comment on above: Performed By: #### C BC ####[facility] [address] [place] [address]Dr. Farhat Leal LYMPH # 2.2 103/ul Normal 1.2-3.8 [facility] Comment on above: Performed By: #### C BC ####[facility] [address] [place] [address]Dr. Farhat Leal Lymphocytes/100 WBC (Bld) 33.9 % Normal 20.5-60.0 [facility] Comment on above: Performed By: #### C BC ####[facility] Q[address]ixzd[address] [place] [phone]. Farhat Leal MANUAL DIFF REQ NO Normal [facility] Comment on above: Performed By: #### C BC ####[facility] F[address]dhgrb[address] [place] [phone]. Farhat Leal MCH (RBC) [Entitic mass] 31.0 pg Normal 25.9-34.0 [facility] Comment on above: Performed By: #### C BC ####[facility] [address]rj[address] [place] [id number]. Farhat Leal MCHC (RBC) [Mass/Vol] 33.3 g/dL Normal 29.9-35.2 [facility] Comment on above: Performed By: #### C BC ####[facility] [address] [place] [phone]. Farhat Leal MCV (RBC) [Entitic vol] 93.1 fL Normal 80.0-94.0 [facility] Comment on above: Performed By: #### C BC ####[facility] [address]ufxenint[address] [place] [id number]. Farhat Leal MONO # 0.7 103/ul Normal 0.3-0.8 [facility] Comment on above: Performed By: #### C BC ####[facility] [address]hb[address] [place] [phone]. Farhat Leal Monocytes/100 WBC (Bld) 10.8 % Normal 1.7-12.0 [facility] Comment on above: Performed By: #### C BC ####[facility] Fkieuckxtf[address] [place] [id number]. Farhat Leal NEUT # 3.2 103/ul Normal 1.4-6.5 [facility] Comment on above: Performed By: #### C BC ####[facility] [address] [place] [address]Dr. Farhat Leal Neutrophils/100 WBC (Bld) 49.7 % Normal 43.0-75.0 [facility] Comment on above: Performed By: #### C BC ####[facility] Albe[address] [place] [phone]. Farhat Leal Platelet mean volume (Bld) [Entitic vol] 10.9 fL Normal 9.5-13.5 [facility] Comment on above: Performed By: #### C BC ####[facility] Ahpt[address]ccwjp[address] [place] [phone]. Farhat Leal PLT 195 103/ul Normal 150-450 [facility] Comment on above: Performed By: #### C BC ####[facility] X[address]ilko39[address] [place] [phone]. Farhat Leal RBC 3.93 106/ul Critically low 4.70-6.10 [facility] Comment on above: Performed By: #### C BC ####[facility] Zw[address]iekdj2880 [place] [phone]. Farhat Leal WBC 6.4 103/ul Normal 4.0-11.0 [facility] Comment on above: Performed By: #### C BC ####[facility] N[address]xf[address]op[address] [place] [address]Dr. Farhat Lela MAGNESIUMon 07-10-2022 Magnesium [Mass/Vol] 1.9 mg/dL Normal 1.8-2.4 [facility] Comment on above: Performed By: #### M Anais PHOS ####[facility] Z[address]ae[address] [place] [address]Dr. Farhat Leal PHOSPHORUSon 07-10-2022 Phosphate [Mass/Vol] 4.7 mg/dL Normal 2.6-4.7 [facility] Comment on above: Performed By: #### M ANA ManzoS ####[facility] Nxhgialprp24[address] [place] [address]Dr. Farhat Leal PROF 14(COMP METB)on 023 Albumin [Mass/Vol] 2.7 g/dL Critically low 3.4-5.[address] [facility] Comment on above: Performed By: #### C MP ####[facility] B[address] [place], [place] [address]Dr. Farhat Leal Albumin/Globulin [Mass ratio] 0.8 {ratio} Normal [facility] Comment on above: Performed By: #### C MP ####[facility] J[address]sem[address]ren[address] [place], [place] [address]Dr. Farhat Leal ALP [Catalytic activity/Vol] 59 U/L Normal 46-116 [facility] Comment on above: Performed By: #### C MP ####[facility] Lytrt[address] [place], [place] [address]Dr. Farhat Leal ALT [Catalytic activity/Vol] 16 U/L Normal 16-63 [facility] Comment on above: Performed By: #### C MP ####[facility] H[address]mpc[address] [place], [place] [address]Dr. Farhat Leal Anion gap [Moles/Vol] 12.3 mmol/L Normal [facility] Comment on above: Performed By: #### C MP ####[facility] Qctwe[address]vnvu[address] [place], [place] [address]Dr. Farhat Leal AST [Catalytic activity/Vol] 17 U/L Normal 15-37 [facility] Comment on above: Performed By: #### C MP ####[facility] Hvkvytwwtr037[address] [place] [address]Dr. Farhat Elvis Bilirubin [Mass/Vol] 0.5 mg/dL Normal 0.2-1.0 [facility] Comment on above: Performed By: #### C MP ####[facility] Tpigodkvnp[address] [place], [place] [address]Dr. Farhat Elvis Calcium [Mass/Vol] 8.5 mg/dL Normal 8.5-10.1 [facility] Comment on above: Performed By: #### C MP ####[facility] V[address]vlrqfzdf[address] [place], [place] [address]Dr. Farhat Elvis Chloride [Moles/Vol] 104 mmol/L Normal 98-107 [facility] Comment on above: Performed By: #### C MP ####[facility] Hfoxurpqdj[address] [place], [place] [address]Dr. Farhat Elvis CO2 [Moles/Vol] 27.6 mmol/L Normal 21.0-32.0 [facility] Comment on above: Performed By: #### C MP ####[facility] Wjnisxvxvd[address] [place], [place] [address]Dr. Farhat Elvis Creatinine [Mass/Vol] 1.79 mg/dL Critically high 0.70-1.30 [facility] Comment on above: Performed By: #### C MP ####[facility] Pulpxraiwz[address] [place], [place] [address]Dr. Farhat Elvis EGFR-AF CYMRAES 45 mL/min/1.73m2 Critically low >=60 [facility] Comment on above: Performed By: #### C MP ####[facility] [address]pt[address] [place], [place] [address]Dr. Farhat Leal EGFR-NON AF CYMRAES 37 mL/min/1.73m2 Critically low >=60 [facility] Comment on above: Performed By: #### C MP ####[facility] Egylqwehle[address] [place], [place] [address]Dr. Farhat Leal Globulin (S) [Mass/Vol] 3.2 g/dL Normal [facility] Comment on above: Performed By: #### C MP ####[facility] G[address]ll[address]qewf[address] [place] [address]Dr. Farhat Leal Glucose [Mass/Vol] 203 mg/dL Critically high 74-106 [facility] [place] Comment on above: Performed By: #### C MP ####[facility] Iiygkdbcjk2253 [place] [address]Dr. Farhat Leal Potassium [Moles/Vol] 3.9 mmol/L Normal 3.5-5.1 [facility] Comment on above: Performed By: #### C MP ####[facility] Fnavszhrce[address] [place], [place] [address]Dr. Farhat Leal Protein [Mass/Vol] 5.9 g/dL Critically low 6.4-8.2 [facility] Comment on above: Performed By: #### C MP ####[facility] Kvkgvbcoja[address] [place], [place] [address]Dr. Farhat Leal Sodium [Moles/Vol] 140 mmol/L Normal 136-145 [facility] Comment on above: Performed By: #### C MP ####[facility] K[address]vmesqfs[address] [place], [place] [address]Dr. Farhat Leal Urea nitrogen [Mass/Vol] 61.0 mg/dL Critically high 7.0-18.0 [facility] Comment on above: Performed By: #### C MP ####[facility] Ejjlaq[address]wqd[address] [place], [place] [address]Dr. Farhat Leal Urea nitrogen/Creatinine [Mass ratio] 34.1 mg/mg Normal [facility] Comment on above: Performed By: #### C MP ####[facility] Dlaghcamyi[address] [place], [place] [address]Dr. Farhat Leal PROTIMEon 07-10-2022 INR Coag (PPP) [Relative time] 2.95 {INR} Normal [facility] Comment on above: Performed By: #### P T ####[facility] Uetybgvuhx[address] [place], [place] [address]Dr. Farhat Leal INR GUIDELINES SEE BELOW Normal [facility] Comment on above: Result Comment: MALINA RED INR: 2.0 - 3.0 CONDITIONS NOT LISTED BELOW 2.5 - 3.5 FOR PROSTHETIC HEART VALVE REPLACEMENT 2.5 - 3.5 RECURRENT THROMBOSIS Performed By: #### P T ####[facility] N[address]bwbwr[address] [place], [place] [address]Dr. Farhat Leal PT Coag (PPP) [Time] 29.4 s Critically high 9.0-11.6 [facility] Comment on above: Performed By: #### P T ####[facility] Z[address]qxvm[address] [place], [place] [address]Dr. Farhat Leal FK506 (TACROLIMUS) WHOLE BLO ODon 07-07-2022 Tacrolimus (FK506), Blood 8.3 ng/mL Normal 2.0-20.0 [facility] Comment on above: Result Comment: Trou gh (immediately following transplant) 15.0 . Trough (steady state, 2 weeks or more after transplant): 3.0 - 8.0 . Performed by LC-MS/MS technology. Performed By: #### F K506T ####[facility] [address]oz[address] [place], [place] [address]Dr. Farhat Leal CBC AUTO DIFFon 07-03-2022 BASO # 0.0 103/ul Normal 0.0-0.1 [facility] Comment on above: Performed By: #### C BC ####[facility] Yjvr[address]zubje[address] [place], [place] [address]Dr. Farhat Leal Basophils/100 WBC (Bld) 0.6 % Normal 0.2-2.0 [facility] Comment on above: Performed By: #### C BC ####[facility] [address]ft[address] [place], [place] [address]Dr. Farhat Leal EO # 0.3 103/ul Normal 0.0-0.7 [facility] Comment on above: Performed By: #### C BC ####[facility] Gcppyodtnx[address] [place], [place] [address]Dr. Farhat Leal Eosinophils/100 WBC (Bld) 4.1 % Normal 0.9-7.0 [facility] Comment on above: Performed By: #### C BC ####[facility] [address]bquttcjs37[address] [place] [address]Dr. Farhat Leal Erythrocyte distribution width (RBC) [Ratio] 14.0 % Normal 11.0-15.0 [facility] Comment on above: Performed By: #### C BC ####[facility] [address] [place], [place] [address]Dr. Farhat Leal Hematocrit (Bld) [Volume fraction] 35.9 % Critically low 42.0-54.0 [facility] Comment on above: Performed By: #### C BC ####[facility] [address]wfbq[address] [place], [place] [address]Dr. Farhat Leal Hemoglobin (Bld) [Mass/Vol] 12.0 g/dL Critically low 14.0-18.0 [facility] Comment on above: Performed By: #### C BC ####[facility] Ynq[address]pxbnup[address] [place], [place] [address]Dr. Farhat Leal IG # 0.04 10e3/ul Critically high 0.00-0.03 [facility] Comment on above: Performed By: #### C BC ####[facility] Tvoq[address]fssa[address] [place], [place] [address]Dr. Farhat Leal IG % 0.6 % Critically high 0.0-0.5 [facility] Comment on above: Performed By: #### C BC ####[facility] [address]efcsh[address] [place], [place] [address]Dr. Farhat Leal LYMPH # 1.5 103/ul Normal 1.2-3.8 [facility] Comment on above: Performed By: #### C BC ####[facility] R[address]zzfb[address] [place], [place] [address]Dr. Farhat Leal Lymphocytes/100 WBC (Bld) 21.5 % Normal 20.5-60.0 [facility] Comment on above: Performed By: #### C BC ####[facility] V[address]psbrjuxj[address] [place], [place] [address]Dr. Farhat Leal MANUAL DIFF REQ NO Normal [facility] Comment on above: Performed By: #### C BC ####[facility] [address]trdtb[address]ie[address]39 [place] [phone]. Farhat Elvis MCH (RBC) [Entitic mass] 30.8 pg Normal 25.9-34.0 [facility] Comment on above: Performed By: #### C BC ####[facility] [address]wrnjfgebw[address] [place] [address]Dr. Farhat Elvis MCHC (RBC) [Mass/Vol] 33.4 g/dL Normal 29.9-35.2 [facility] Comment on above: Performed By: #### C BC ####[facility] Lcfr[address]qy[address] [place], [place] [address]Dr. Madelynlorri Leal MCV (RBC) [Entitic vol] 92.1 fL Normal 80.0-94.0 [facility] Comment on above: Performed By: #### C BC ####[facility] [address]ijmjcm[address] [place], [place] [address]Dr. Farhat Leal MONO # 0.6 103/ul Normal 0.3-0.8 [facility] Comment on above: Performed By: #### C BC ####[facility] V[address]fqcwkeva[address] [place], [place] [address]Dr. Madelynlorri Leal Monocytes/100 WBC (Bld) 8.7 % Normal 1.7-12.0 [facility] Comment on above: Performed By: #### C BC ####[facility] [address]jp[address] [place], [place] [address]Dr. Farhat Leal NEUT # 4.4 103/ul Normal 1.4-6.5 [facility] Comment on above: Performed By: #### C BC ####[facility] Arod[address]qyzyg[address] [place], [place] [address]DrSkylar Leal Neutrophils/100 WBC (Bld) 64.5 % Normal 43.0-75.0 [facility] Comment on above: Performed By: #### C BC ####[facility] [address]djjssmz[address] [place], [place] [address]Dr. Farhat Leal Platelet mean volume (Bld) [Entitic vol] 10.1 fL Normal 9.5-13.5 [facility] Comment on above: Performed By: #### C BC ####[facility] [address]kiasz[address] [place] [address]Dr. Madelynlorri Elvis PLT 177 103/ul Normal 150-450 [facility] Comment on above: Performed By: #### C BC ####[facility] Pwtoqcwcle6189 [place] [phone]. Madelynlorri Elvis RBC 3.90 106/ul Critically low 4.70-6.10 [facility] Comment on above: Performed By: #### C BC ####[facility] Xklydmddcb6512 [place] [phone]. Madelynlorri Elvis WBC 6.8 103/ul Normal 4.0-11.0 [facility] Comment on above: Performed By: #### C BC ####[facility] Jnmdwltdqx[address] [place] [address]Dr. Farhat Leal PROF 14(COMP METB)on 023 Albumin [Mass/Vol] 2.8 g/dL Critically low 3.4-5.[address] [facility] Comment on above: Performed By: #### C MP ####[facility] Xlqnlebxgd6280 [place] [address]Dr. Farhat Leal Albumin/Globulin [Mass ratio] 0.8 {ratio} Normal [facility] Comment on above: Performed By: #### C MP ####[facility] Y[address]csaudlfk[address] [place] [address]Dr. Farhat Leal ALP [Catalytic activity/Vol] 68 U/L Normal 46-116 [facility] Comment on above: Performed By: #### C MP ####[facility] Xmszwloill7856 [place] [address]Dr. Farhat Leal ALT [Catalytic activity/Vol] 20 U/L Normal 16-63 [facility] Comment on above: Performed By: #### C MP ####[facility] Pjtqiboyyw3094 [place] [address]DrSkylar Leal Anion gap [Moles/Vol] 11.1 mmol/L Normal [facility] Comment on above: Performed By: #### C MP ####[facility] Hsubbnugfh0664 [place] [phone]. Farhat Leal AST [Catalytic activity/Vol] 22 U/L Normal 15-37 [facility] Comment on above: Performed By: #### C MP ####[facility] Lgwyqhmxkf1283 [place] [phone]. Farhat Leal Bilirubin [Mass/Vol] 0.4 mg/dL Normal 0.2-1.0 [facility] Comment on above: Performed By: #### C MP ####[facility] Repvpsjsms50[address] [place] [address]Dr. Farhat Leal Calcium [Mass/Vol] 8.5 mg/dL Normal 8.5-10.1 [facility] Comment on above: Performed By: #### C MP ####[facility] Aefhnvpexw[address] [place], [place] [address]Dr. Farhat Leal Chloride [Moles/Vol] 106 mmol/L Normal 98-107 [facility] Comment on above: Performed By: #### C MP ####[facility] Qhupaikhvs680[address] [place], [place] [address]Dr. Farhat Leal CO2 [Moles/Vol] 29.1 mmol/L Normal 21.0-32.0 [facility] Comment on above: Performed By: #### C MP ####[facility] Zectjupnpo[address] [place], [place] [id number]. Farhat Leal Creatinine [Mass/Vol] 1.70 mg/dL Critically high 0.70-1.30 [facility] Comment on above: Performed By: #### C MP ####[facility] Gylkwilirr4643 [place] [phone]. Farhat Elvis EGFR-AF CYMRAES 48 mL/min/1.73m2 Critically low >=60 [facility] Comment on above: Performed By: #### C MP ####[facility] Lorjugvjmx0631 [place] [phone]. Farhat Leal EGFR-NON AF CYMRAES 39 mL/min/1.73m2 Critically low >=60 [facility] Comment on above: Performed By: #### C MP ####[facility] Msmzkkhhxs6650 [place] [address]Dr. Farhat Leal Globulin (S) [Mass/Vol] 3.6 g/dL Normal [facility] Comment on above: Performed By: #### C MP ####[facility] Rdygyvppfm2418 [place] [address]Dr. Farhat Leal Glucose [Mass/Vol] 312 mg/dL Critically high 74-106 [facility] Comment on above: Performed By: #### C MP ####[facility] Qrkcqsrjyj7906 [place] [address]Dr. Farhat Leal Potassium [Moles/Vol] 4.2 mmol/L Normal 3.5-5.1 [facility] Comment on above: Performed By: #### C MP ####[facility] Meuiixikxb313[address] [place], [place] [address]Dr. Farhat Leal Protein [Mass/Vol] 6.4 g/dL Normal 6.4-8.2 [facility] Comment on above: Performed By: #### C MP ####[facility] Blfrnsucum246[address] [place], [place] [address]Dr. Farhat Leal Sodium [Moles/Vol] 142 mmol/L Normal 136-145 [facility] Comment on above: Performed By: #### C MP ####[facility] Jtycrzorhv7[address] [place], [place] [address]Dr. Farhat Leal Urea nitrogen [Mass/Vol] 49.0 mg/dL Critically high 7.0-18.0 [facility] Comment on above: Performed By: #### C MP ####[facility] Irvjxruhzm[address] [place], [place] [address]Dr. Farhat Leal Urea nitrogen/Creatinine [Mass ratio] 28.8 mg/mg Normal [facility] Comment on above: Performed By: #### C MP ####[facility] Rtoxyetkud0413 [place] [address]Dr. Farhat Elvis PROTIMEon 07-03-2022 INR Coag (PPP) [Relative time] 2.23 {INR} Normal [facility] Comment on above: Performed By: #### P T ####[facility] Datpchvwxa4483 [place] [address]Dr. Farhat Leal INR GUIDELINES SEE BELOW Normal [facility] Comment on above: Result Comment: MALINA RED INR: 2.0 - 3.0 CONDITIONS NOT LISTED BELOW 2.5 - 3.5 FOR PROSTHETIC HEART VALVE REPLACEMENT 2.5 - 3.5 RECURRENT THROMBOSIS Performed By: #### P T ####[facility] Nsdunyopmk[address] [place], [place] [address]Dr. Farhat Leal PT Coag (PPP) [Time] 22.6 s Critically high 9.0-11.6 [facility] Comment on above: Performed By: #### P T ####[facility] Fifkqhdggy24[address] [place], [place] [address]Dr. Farhat Leal FK506 (TACROLIMUS) WHOLE BLO ODon 06-29-2022 Tacrolimus (FK506), Blood 12.2 ng/mL Normal 2.0-20.0 [facility] Comment on above: Result Comment: Trou gh (immediately following transplant) 15.0 . Trough (steady state, 2 weeks or more after transplant): 3.0 - 8.0 . Performed by LC-MS/MS technology. Performed By: #### F K506T ####[facility] Xyjosrcvia469[address] [place], [place] [address]Dr. Farhat Leal CBC AUTO DIFFon 06-26-2022 BASO # 0.0 103/ul Normal 0.0-0.1 [facility] Comment on above: Performed By: #### C BC ####[facility] Wbfeoupkts939[address] [place], [place] [address]Dr. Farhat Leal Basophils/100 WBC (Bld) 0.5 % Normal 0.2-2.0 [facility] Comment on above: Performed By: #### C BC ####[facility] Dcvqmlktew2880 [place] [address]Dr. Farhat Leal EO # 0.3 103/ul Normal 0.0-0.7 [facility] Comment on above: Performed By: #### C BC ####[facility] Wbspvczrjt0568 [place] [phone]. Farhat Leal Eosinophils/100 WBC (Bld) 4.3 % Normal 0.9-7.0 [facility] Comment on above: Performed By: #### C BC ####[facility] Bzdifmlfrp4578 [place] [address]Dr. Farhat Leal Erythrocyte distribution width (RBC) [Ratio] 14.1 % Normal 11.0-15.0 [facility] Comment on above: Performed By: #### C BC ####[facility] Vtgdrdjyrk324[address] [place], [place] [address]Dr. Farhat Leal Hematocrit (Bld) [Volume fraction] 35.4 % Critically low 42.0-54.0 [facility] Comment on above: Performed By: #### C BC ####[facility] Gtlucgmawj153[address] [place], [place] [address]Dr. Farhat Leal Hemoglobin (Bld) [Mass/Vol] 11.8 g/dL Critically low 14.0-18.0 [facility] Comment on above: Performed By: #### C BC ####[facility] Ymmxtxunih9[address] [place], [place] [address]Dr. Farhat Leal IG # 0.02 10e3/ul Normal 0.00-0.03 [facility] Comment on above: Performed By: #### C BC ####[facility] Tndxhlaoog618[address] [place], [place] [address]Dr. Farhat Leal IG % 0.3 % Normal 0.0-0.5 [facility] Comment on above: Performed By: #### C BC ####[facility] Asxcypozti304[address] [place], [place] [address]Dr. Farhat Leal LYMPH # 2.4 103/ul Normal 1.2-3.8 [facility] Comment on above: Performed By: #### C BC ####[facility] Kpbvlyffgs24[address] [place], [place] [address]Dr. Farhat Leal Lymphocytes/100 WBC (Bld) 40.4 % Normal 20.5-60.0 [facility] Comment on above: Performed By: #### C BC ####[facility] Bwfcieczye3016 [place] [phone]. Farhat Leal MANUAL DIFF REQ NO Normal [facility] Comment on above: Performed By: #### C BC ####[facility] Epefoglvir9241 [place] [phone]. Farhat Leal MCH (RBC) [Entitic mass] 31.0 pg Normal 25.9-34.0 [facility] Comment on above: Performed By: #### C BC ####[facility] Uievevcnnv[address] [place], [place] [address]Dr. Farhat Leal MCHC (RBC) [Mass/Vol] 33.3 g/dL Normal 29.9-35.2 [facility] Comment on above: Performed By: #### C BC ####[facility] Iuihlhpqph[address] [place], [place] [address]Dr. Farhat Leal MCV (RBC) [Entitic vol] 92.9 fL Normal 80.0-94.0 [facility] Comment on above: Performed By: #### C BC ####[facility] Bhawvrjgqr[address] [place], [place] [address]Dr. Farhat Leal MONO # 0.7 103/ul Normal 0.3-0.8 [facility] Comment on above: Performed By: #### C BC ####[facility] Iyydvhclqm[address] [place], [place] [address]Dr. Farhat Elvis Monocytes/100 WBC (Bld) 11.1 % Normal 1.7-12.0 [facility] Comment on above: Performed By: #### C BC ####[facility] Xixq[address]zjmr[address] [place], [place] [address]Dr. Farhat Leal NEUT # 2.6 103/ul Normal 1.4-6.5 [facility] Comment on above: Performed By: #### C BC ####[facility] Sjbsnizrqd[address] [place], [place] [address]Dr. Farhat Leal Neutrophils/100 WBC (Bld) 43.4 % Normal 43.0-75.0 [facility] Comment on above: Performed By: #### C BC ####[facility] Ljbjovwzpu7104 [place] [phone]. Farhat Leal Platelet mean volume (Bld) [Entitic vol] 10.4 fL Normal 9.5-13.5 [facility] Comment on above: Performed By: #### C BC ####[facility] Fjzdmfoymi0385 [place] [phone]. Farhat Leal PLT 211 103/ul Normal 150-450 [facility] Comment on above: Performed By: #### C BC ####[facility] Sesbeganxh4502 [place] [phone]. Farhat Leal RBC 3.81 106/ul Critically low 4.70-6.10 [facility] Comment on above: Performed By: #### C BC ####[facility] Bevnmbnuvz9588 [place] [phone]. Farhat Leal WBC 6.0 103/ul Normal 4.0-11.0 [facility] Comment on above: Performed By: #### C BC ####[facility] Xgmwakcyss9244 [place] [address]Dr. Farhat Leal PROF 14(COMP METB)on 023 Albumin [Mass/Vol] 2.6 g/dL Critically low 3.4-5.0 [facility] Comment on above: Performed By: #### C MP ####[facility] Xgiwhkvfhk7973 [place] [phone]. Farhat Leal Albumin/Globulin [Mass ratio] 0.8 {ratio} Normal [facility] Comment on above: Performed By: #### C MP ####[facility] Jkheivwenz2711 [place] [phone]. Farhat Leal ALP [Catalytic activity/Vol] 64 U/L Normal 46-116 [facility] Comment on above: Performed By: #### C MP ####[facility] Xgfvyemfze5877 [place] [address]Dr. Farhat Leal ALT [Catalytic activity/Vol] 18 U/L Normal 16-63 [facility] Comment on above: Performed By: #### C MP ####[facility] Eahguaymjr1839 [place] [phone]. Farhat Leal Anion gap [Moles/Vol] 10.2 mmol/L Normal [facility] Comment on above: Performed By: #### C MP ####[facility] Hygtogdcmv3231 [place] [phone]. Farhat Leal AST [Catalytic activity/Vol] 16 U/L Normal 15-37 [facility] Comment on above: Performed By: #### C MP ####[facility] Olskdhgoem7540 [place] [phone]. Farhat Leal Bilirubin [Mass/Vol] 0.6 mg/dL Normal 0.2-1.0 [facility] Comment on above: Performed By: #### C MP ####[facility] Njaluzmdqo9154 [place] [address]Dr. Farhat Leal Calcium [Mass/Vol] 8.5 mg/dL Normal 8.5-10.1 [facility] Comment on above: Performed By: #### C MP ####[facility] Tfytmxfqhn0735 [place] [phone]. Farhat Leal Chloride [Moles/Vol] 106 mmol/L Normal 98-107 [facility] Comment on above: Performed By: #### C MP ####[facility] Iaocrtqkwy7423 [place] [phone]. Farhat Leal CO2 [Moles/Vol] 29.8 mmol/L Normal 21.0-32.0 [facility] Comment on above: Performed By: #### C MP ####[facility] Jkyiespgho2266 [place] [phone]. Farhat Leal Creatinine [Mass/Vol] 1.60 mg/dL Critically high 0.70-1.30 [facility] Comment on above: Performed By: #### C MP ####[facility] Lsudprevpl5838 [place] [phone]. Farhat Leal EGFR-AF CYMRAES 51 mL/min/1.73m2 Critically low >=60 [facility] Comment on above: Performed By: #### C MP ####[facility] Krzrdrcbqt8123 [place] [phone]. Farhat Leal EGFR-NON AF CYMRAES 42 mL/min/1.73m2 Critically low >=60 [facility] Comment on above: Performed By: #### C MP ####[facility] Wfugmocehv2661 [place] [phone]. Farhat Leal Globulin (S) [Mass/Vol] 3.4 g/dL Normal [facility] Comment on above: Performed By: #### C MP ####[facility] Rwpssvvkgw7300 [place] [phone]. Farhat Leal Glucose [Mass/Vol] 178 mg/dL Critically high 74-106 [facility] [place] Comment on above: Performed By: #### C MP ####[facility] Kocxbebmdi5091 [place] [phone]. Farhat Leal Potassium [Moles/Vol] 4.0 mmol/L Normal 3.5-5.1 [facility] Comment on above: Performed By: #### C MP ####[facility] Maujqfmlvn1651 [place] [phone]. Farhat Leal Protein [Mass/Vol] 6.0 g/dL Critically low 6.4-8.2 [facility] Comment on above: Performed By: #### C MP ####[facility] Dlaqaoihfq2398 [place] [phone]. Farhat Leal Sodium [Moles/Vol] 142 mmol/L Normal 136-145 [facility] Comment on above: Performed By: #### C MP ####[facility] Aevsrkpsnk2596 [place] [phone]. Farhat Leal Urea nitrogen [Mass/Vol] 49.0 mg/dL Critically high 7.0-18.0 [facility] Comment on above: Performed By: #### C MP ####[facility] Yptqvwggkj6609 [place] [phone]. Farhat Leal Urea nitrogen/Creatinine [Mass ratio] 30.6 mg/mg Normal [facility] Comment on above: Performed By: #### C MP ####[facility] Bvwfiswuov1641 [place] [address]Dr. Farhat Leal PROTIMEon 06-26-2022 INR Coag (PPP) [Relative time] 1.77 {INR} Normal [facility] Comment on above: Performed By: #### P T ####[facility] Hhfeomjsdj09[address] [place], [place] [address]Dr. Farhat Leal INR GUIDELINES SEE BELOW Normal [facility] Comment on above: Result Comment: MALINA RED INR: 2.0 - 3.0 CONDITIONS NOT LISTED BELOW 2.5 - 3.5 FOR PROSTHETIC HEART VALVE REPLACEMENT 2.5 - 3.5 RECURRENT THROMBOSIS Performed By: #### P T ####[facility] Odmmqitlnv207[address] [place], [place] [address]Dr. Farhat Leal PT Coag (PPP) [Time] 18.2 s Critically high 9.0-11.6 [facility] Comment on above: Performed By: #### P T ####[facility] Awiydqefay370[address] [place], [place] [address]DrSkylar Leal FK506 (TACROLIMUS) WHOLE BLO ODon 06-22-2022 Tacrolimus (FK506), Blood 24.5 ng/mL Invalid Interpretation Code 2.0-20.0 [facility] Comment on above: Result Comment: Trou gh (immediately following transplant) 15.0 . Trough (steady state, 2 weeks or more after transplant): 3.0 - 8.0 . Performed by LC-MS/MS technology.Patient drug level exceeds published reference range. Evaluateclinically for signs of potential toxicity. Performed By: #### F K506T ####[facility] Qmuolmzwsb101[address] [place], [place] [address]DrSkylar Leal CBC AUTO DIFFon 06-19-2022 BASO # 0.1 103/ul Normal 0.0-0.1 [facility] Comment on above: Performed By: #### C BC ####[facility] Azxdbpxqgo8801 [place] [address]DrSkylar Leal Basophils/100 WBC (Bld) 0.7 % Normal 0.2-2.0 [facility] Comment on above: Performed By: #### C BC ####[facility] Hohrcximwf0521 [place] [phone]. Farhat Leal EO # 0.4 103/ul Normal 0.0-0.7 [facility] Comment on above: Performed By: #### C BC ####[facility] Femowuwpas9569 [place] [phone]. Farhat Leal Eosinophils/100 WBC (Bld) 5.7 % Normal 0.9-7.0 [facility] Comment on above: Performed By: #### C BC ####[facility] Nvvspupsaq6[address] [place], [place] [address]Dr. Farhat Leal Erythrocyte distribution width (RBC) [Ratio] 14.5 % Normal 11.0-15.0 [facility] Comment on above: Performed By: #### C BC ####[facility] Uzklhhrwme[address] [place], [place] [address]Dr. Farhat Leal Hematocrit (Bld) [Volume fraction] 34.1 % Critically low 42.0-54.0 [facility] Comment on above: Performed By: #### C BC ####[facility] Iwguhzakjo2734 [place] [address]Dr. Farhat Leal Hemoglobin (Bld) [Mass/Vol] 11.3 g/dL Critically low 14.0-18.0 [facility] Comment on above: Performed By: #### C BC ####[facility] Wwnkxrnyno[address] [place], [place] [address]Dr. Farhat Leal IG # 0.02 10e3/ul Normal 0.00-0.03 [facility] Comment on above: Performed By: #### C BC ####[facility] Wtavlchstc2781 [place] [address]Dr. Farhat Leal IG % 0.3 % Normal 0.0-0.5 [facility] Comment on above: Performed By: #### C BC ####[facility] Wbvkjppwqc91[address] [place], [place] [address]Dr. Farhat Leal LYMPH # 3.1 103/ul Normal 1.2-3.8 [facility] Comment on above: Performed By: #### C BC ####[facility] Gnxosjiglf4025 [place] [phone]. Farhat Leal Lymphocytes/100 WBC (Bld) 40.6 % Normal 20.5-60.0 [facility] Comment on above: Performed By: #### C BC ####[facility] Unnqtizqdc9393 [place] [phone]. Farhat Elvis MANUAL DIFF REQ NO Normal [facility] Comment on above: Performed By: #### C BC ####[facility] Iteqcicuqi7229 [place] [phone]. Farhat Elvis MCH (RBC) [Entitic mass] 30.6 pg Normal 25.9-34.0 [facility] Comment on above: Performed By: #### C BC ####[facility] Rpnkhlgblt[address] [place], [place] [address]Dr. Farhat Elvis MCHC (RBC) [Mass/Vol] 33.1 g/dL Normal 29.9-35.2 [facility] Comment on above: Performed By: #### C BC ####[facility] Pzvekvvdyw7861 [place] [phone]. Farhat Elvis MCV (RBC) [Entitic vol] 92.4 fL Normal 80.0-94.0 [facility] Comment on above: Performed By: #### C BC ####[facility] Drsiiphkhg5785 [place] [address]Dr. Madelynlorri Elvis MONO # 0.8 103/ul Normal 0.3-0.8 [facility] Comment on above: Performed By: #### C BC ####[facility] Grdrlnogka5537 [place] [phone]. Madelynlorri Leal Monocytes/100 WBC (Bld) 10.6 % Normal 1.7-12.0 [facility] Comment on above: Performed By: #### C BC ####[facility] [address]xgkfsqfa[address] [place], [place] [address]Dr. Farhat Leal NEUT # 3.2 103/ul Normal 1.4-6.5 [facility] Comment on above: Performed By: #### C BC ####[facility] Obkgnvlojl7498 [place] [phone]. Farhat Leal Neutrophils/100 WBC (Bld) 42.1 % Critically low 43.0-75.0 [facility] Comment on above: Performed By: #### C BC ####[facility] Ozrkngaegh3142 [place] [phone]. Farhat Leal Platelet mean volume (Bld) [Entitic vol] 10.6 fL Normal 9.5-13.5 [facility] Comment on above: Performed By: #### C BC ####[facility] Wdnupehofm9228 [place] [phone]. Farhat Leal PLT 187 103/ul Normal 150-450 [facility] Comment on above: Performed By: #### C BC ####[facility] Mxiydnihcu3074 [place] [phone]. Farhat Leal RBC 3.69 106/ul Critically low 4.70-6.10 [facility] Comment on above: Performed By: #### C BC ####[facility] Sgdznndoex3058 [place] [phone]. Farhat Leal WBC 7.7 103/ul Normal 4.0-11.0 [facility] Comment on above: Performed By: #### C BC ####[facility] Bpczfxayxa3454 [place] [address]Dr. Farhat Leal PROF 14(COMP METB)on 023 Albumin [Mass/Vol] 2.5 g/dL Critically low 3.4-5.[address] [facility] Comment on above: Performed By: #### C MP ####[facility] Gkthsatrrk6143 [place] [address]Dr. Farhat Leal Albumin/Globulin [Mass ratio] 0.8 {ratio} Normal [facility] Comment on above: Performed By: #### C MP ####[facility] Enqafkxwjo9834 [place] [phone]. Madelynlorri Elvis ALP [Catalytic activity/Vol] 60 U/L Normal 46-116 [facility] Comment on above: Performed By: #### C MP ####[facility] Rvljpqixhr0787 [place] [phone]. Farhat Leal ALT [Catalytic activity/Vol] 16 U/L Normal 16-63 [facility] Comment on above: Performed By: #### C MP ####[facility] Bbodxcgbmf1962 [place] [phone]. Farhat Leal Anion gap [Moles/Vol] 9.1 mmol/L Normal [facility] Comment on above: Performed By: #### C MP ####[facility] Vdwsdpndcn5791 [place] [phone]. Farhat Leal AST [Catalytic activity/Vol] 31 U/L Normal 15-37 [facility] Comment on above: Performed By: #### C MP ####[facility] Sagambqsnh3737 [place] [address]Dr. Farhat Leal Bilirubin [Mass/Vol] 0.3 mg/dL Normal 0.2-1.0 [facility] Comment on above: Performed By: #### C MP ####[facility] Qzcytlrxru6971 [place] [phone]. Farhat Leal Calcium [Mass/Vol] 8.2 mg/dL Critically low 8.5-10.1 [facility] Comment on above: Performed By: #### C MP ####[facility] [address]xiwsz[address] [place], [place] [id number]. Farhat Leal Chloride [Moles/Vol] 106 mmol/L Normal 98-107 [facility] Comment on above: Performed By: #### C MP ####[facility] Tnbmczjicm7852 [place] [phone]. Farhat Leal CO2 [Moles/Vol] 27.0 mmol/L Normal 21.0-32.0 [facility] Comment on above: Performed By: #### C MP ####[facility] Vkklzlkhwc9724 [place] [phone]. Farhat Leal Creatinine [Mass/Vol] 1.51 mg/dL Critically high 0.70-1.30 [facility] Comment on above: Performed By: #### C MP ####[facility] [address] [place], [place] [address]Hw. Farhat Leal EGFR-AF CYMRAES 55 mL/min/1.73m2 Critically low >=60 [facility] Comment on above: Performed By: #### C MP ####[facility] [address] [place] [id number]. Farhat Leal EGFR-NON AF CYMRAES 45 mL/min/1.73m2 Critically low >=60 [facility] Comment on above: Performed By: #### C MP ####[facility] Ioxowuvgnv77[address] [place] [phone]. Farhat Leal Globulin (S) [Mass/Vol] 3.2 g/dL Normal [facility] Comment on above: Performed By: #### C MP ####[facility] Oyfpoxsnqw9670 [place] [phone]. Farhat Leal Glucose [Mass/Vol] 165 mg/dL Critically high 74-106 [facility] Comment on above: Performed By: #### C MP ####[facility] Tshmcvgkxq8152 [place] [phone]. Farhat Leal Potassium [Moles/Vol] 4.1 mmol/L Normal 3.5-5.1 [facility] Comment on above: Performed By: #### C MP ####[facility] Fuqwgfppss67[address] [place] [phone]. Farhat Leal Protein [Mass/Vol] 5.7 g/dL Critically low 6.4-8.2 [facility] Comment on above: Performed By: #### C MP ####[facility] Spwiuorvde0178 [place] [phone]. Farhat Leal Sodium [Moles/Vol] 138 mmol/L Normal 136-145 [facility] Comment on above: Performed By: #### C MP ####[facility] Yvgifzthva9057 [place] [phone]. Farhat Leal Urea nitrogen [Mass/Vol] 51.0 mg/dL Critically high 7.0-18.0 [facility] Comment on above: Performed By: #### C MP ####[facility] Cjemfgtqwx[address] [place], [place] [address]Dr. Farhat Leal Urea nitrogen/Creatinine [Mass ratio] 33.8 mg/mg Normal [facility] Comment on above: Performed By: #### C MP ####[facility] Dyknibuwht[address] [place], [place] [address]DrSkylar Leal FK506 (TACROLIMUS) WHOLE BLO ODon 06-15-2022 Tacrolimus (FK506), Blood 16.4 ng/mL Normal 2.0-20.0 [facility] Comment on above: Result Comment: Trou gh (immediately following transplant) 15.0 . Trough (steady state, 2 weeks or more after transplant): 3.0 - 8.0 . Performed by LC-MS/MS technology. Performed By: #### F K506T ####[facility] Virezrfhgb170[address] [place], [place] [address]DrSkylar Leal PROTIMEon 06-15-2022 INR Coag (PPP) [Relative time] 1.64 {INR} Normal [facility] Comment on above: Performed By: #### P T ####[facility] Gfnnkxmakb134[address] [place], [place] [address]DrSkylar Leal INR GUIDELINES SEE BELOW Normal The [facility] Comment on above: Result Comment: MALINA RED INR: 2.0 - 3.0 CONDITIONS NOT LISTED BELOW 2.5 - 3.5 FOR PROSTHETIC HEART VALVE REPLACEMENT 2.5 - 3.5 RECURRENT THROMBOSIS Performed By: #### P T ####[facility] Tnxkbsvcbr7[address] [place], [place] [address]DrSkylar Leal PT Coag (PPP) [Time] 16.9 s Critically high 9.0-11.6 [facility] Comment on above: Performed By: #### P T ####[facility] Bvkcbeapef[address] [place], [place] [address]DrSkylar Leal CBC AUTO DIFFon 06-12-2022 BASO # 0.0 103/ul Normal 0.0-0.1 [facility] Comment on above: Performed By: #### C BC ####[facility] Aaxooztelt46[address] [place], [place] [address]DrSkylar Leal Basophils/100 WBC (Bld) 0.4 % Normal 0.2-2.0 [facility] Comment on above: Performed By: #### C BC ####[facility] Wacykmatxk9[address] [place], [place] [address]Dr. Farhat Leal EO # 0.4 103/ul Normal 0.0-0.7 [facility] Comment on above: Performed By: #### C BC ####[facility] Efhmilucuj663[address] [place], [place] [address]Dr. Farhat Leal Eosinophils/100 WBC (Bld) 5.4 % Normal 0.9-7.0 [facility] Comment on above: Performed By: #### C BC ####[facility] Cmihfebeik[address] [place], [place] [address]Dr. Farhat Leal Erythrocyte distribution width (RBC) [Ratio] 14.7 % Normal 11.0-15.0 [facility] Comment on above: Performed By: #### C BC ####[facility] Ddwzrhuajj65[address] [place], [place] [address]Dr. Farhat Leal Hematocrit (Bld) [Volume fraction] 34.8 % Critically low 42.0-54.0 [facility] Comment on above: Performed By: #### C BC ####[facility] Lbthrwtxee888[address] [place], [place] [address]Dr. Farhat Leal Hemoglobin (Bld) [Mass/Vol] 11.7 g/dL Critically low 14.0-18.0 [facility] Comment on above: Performed By: #### C BC ####[facility] Tnyvkerzir187[address] [place], [place] [address]Dr. Farhat Leal IG # 0.02 10e3/ul Normal 0.00-0.03 [facility] Comment on above: Performed By: #### C BC ####[facility] Xdqjjjbkyu416[address] [place], [place] [address]Dr. Farhat Leal IG % 0.3 % Normal 0.0-0.5 [facility] Comment on above: Performed By: #### C BC ####[facility] F[address]ym[address] [place] [address]Bt. Farhat Elvis LYMPH # 2.5 103/ul Normal 1.2-3.8 [facility] Comment on above: Performed By: #### C BC ####[facility] Iicsibhknf3304 [place] [phone]. Madelynlorri Leal Lymphocytes/100 WBC (Bld) 36.8 % Normal 20.5-60.0 [facility] Comment on above: Performed By: #### C BC ####[facility] [address]uiroftvjg[address] [place] [address]Dr. Madelynlorri Leal MANUAL DIFF REQ NO Normal [facility] Comment on above: Performed By: #### C BC ####[facility] Ikijpmycxz7725 [place] [address]Dr. Farhat Elvis MCH (RBC) [Entitic mass] 30.9 pg Normal 25.9-34.0 [facility] Comment on above: Performed By: #### C BC ####[facility] Joyhibkvll7[address] [place], [place] [address]Dr. Farhat Elvis MCHC (RBC) [Mass/Vol] 33.6 g/dL Normal 29.9-35.2 [facility] Comment on above: Performed By: #### C BC ####[facility] Tfagdmrthh[address] [place], [place] [address]Dr. Farhat Leal MCV (RBC) [Entitic vol] 91.8 fL Normal 80.0-94.0 [facility] Comment on above: Performed By: #### C BC ####[facility] Ogovjpsbqv5[address] [place] [address]Dr. Farhat Leal MONO # 0.8 103/ul Normal 0.3-0.8 [facility] Comment on above: Performed By: #### C BC ####[facility] Yiyubnydgo509[address] [place], [place] [address]Dr. Farhat Leal Monocytes/100 WBC (Bld) 11.9 % Normal 1.7-12.0 [facility] Comment on above: Performed By: #### C BC ####[facility] Nzpclxjwmd[address] [place], [place] [address]Dr. Farhat Leal NEUT # 3.1 103/ul Normal 1.4-6.5 [facility] Comment on above: Performed By: #### C BC ####[facility] Kccdkpflcs[address] [place] [address]Dr. Farhat Leal Neutrophils/100 WBC (Bld) 45.2 % Normal 43.0-75.0 [facility] Comment on above: Performed By: #### C BC ####[facility] Iprhceyofy56[address] [place] [address]Dr. Farhat Leal Platelet mean volume (Bld) [Entitic vol] 10.5 fL Normal 9.5-13.5 [facility] Comment on above: Performed By: #### C BC ####[facility] Haqctoogzf[address] [place] [address]Dr. Farhat Leal PLT 175 103/ul Normal 150-450 [facility] Comment on above: Performed By: #### C BC ####[facility] Lhplqpouhd[address] [place], [place] [address]Dr. Farhat Leal RBC 3.79 106/ul Critically low 4.70-6.10 [facility] Comment on above: Performed By: #### C BC ####[facility] Kznduzwbnj4641 [place] [address]Dr. Farhat Leal WBC 6.8 103/ul Normal 4.0-11.0 [facility] Comment on above: Performed By: #### C BC ####[facility] Xshqduenkq25[address] [place] [address]Dr. Farhat Leal MAGNESIUMon 06-12-2022 Magnesium [Mass/Vol] 1.6 mg/dL Critically low 1.8-2.4 [facility] Comment on above: Performed By: #### C MP, MG, PHOS ####[facility] Ytefmomflx300[address] [place] [address]Dr. Farhat Leal PHOSPHORUSon 06-12-2022 Phosphate [Mass/Vol] 3.8 mg/dL Normal 2.6-4.7 [facility] Comment on above: Performed By: #### C MP, MG, PHOS ####[facility] Ilmtghdrnq2184 [place] [address]Dr. Farhat Leal PROF 14(COMP METB)on 023 Albumin [Mass/Vol] 2.6 g/dL Critically low 3.4-5.[address] [facility] Comment on above: Performed By: #### C MP, MG, PHOS ####[facility] Mrgfnmnpit7[address] [place] [address]Dr. Farhat Leal Albumin/Globulin [Mass ratio] 0.8 {ratio} Normal [facility] Comment on above: Performed By: #### C MP, MG, PHOS ####[facility] Qaunstfosn[address] [place], [place] [address]Dr. Farhat Leal ALP [Catalytic activity/Vol] 64 U/L Normal 46-116 [facility] Comment on above: Performed By: #### C MP, MG, PHOS ####[facility] Pndoiznogo[address] [place], [place] [address]Dr. Farhat Leal ALT [Catalytic activity/Vol] 18 U/L Normal 16-63 [facility] Comment on above: Performed By: #### C MP, MG, PHOS ####[facility] Zxiqrogkse[address] [place], [place] [address]Dr. Farhat Leal Anion gap [Moles/Vol] 12.9 mmol/L Normal [facility] Comment on above: Performed By: #### C MP, MG, PHOS ####[facility] Gzhpfcfxot369[address] [place], [place] [address]Dr. Farhat Leal AST [Catalytic activity/Vol] 18 U/L Normal 15-37 [facility] Comment on above: Performed By: #### C MP, MG, PHOS ####[facility] Hcwuwtvvsu[address] [place], [place] [address]Dr. Farhat Leal Bilirubin [Mass/Vol] 0.4 mg/dL Normal 0.2-1.0 [facility] Comment on above: Performed By: #### C MP, MG, PHOS ####[facility] Vjhsobyisf[address] [place], [place] [address]Dr. Farhat Leal Calcium [Mass/Vol] 8.7 mg/dL Normal 8.5-10.1 [facility] Comment on above: Performed By: #### C MP, MG, PHOS ####[facility] Toccfeocgu70[address] [place] [address]Dr. Farhat Leal Chloride [Moles/Vol] 105 mmol/L Normal 98-107 [facility] Comment on above: Performed By: #### C MP, MG, PHOS ####[facility] Hongpdocis8336 [place] [address]Dr. Farhat Leal CO2 [Moles/Vol] 27.9 mmol/L Normal 21.0-32.0 [facility] Comment on above: Performed By: #### C MP, MG, PHOS ####[facility] Oslrouvzbz[address] [place], [place] [address]Dr. Farhat Leal Creatinine [Mass/Vol] 1.53 mg/dL Critically high 0.70-1.30 [facility] Comment on above: Performed By: #### C MP, MG, PHOS ####[facility] Tqmsyzlvkt[address] [place], [place] [address]Dr. Farhat Leal EGFR-AF CYMRAES 54 mL/min/1.73m2 Critically low >=60 [facility] Comment on above: Performed By: #### C MP, MG, PHOS ####[facility] Ehgzvhbqjo188[address] [place], [place] [address]Dr. Farhat Leal EGFR-NON AF CYMRAES 44 mL/min/1.73m2 Critically low >=60 [facility] Comment on above: Performed By: #### C MP, MG, PHOS ####[facility] Mdpoyoyamf5684 [place] [address]Dr. Farhat Leal Globulin (S) [Mass/Vol] 3.4 g/dL Normal [facility] Comment on above: Performed By: #### C MP, MG, PHOS ####[facility] Jghwoeufdq5792 [place] [address]Dr. Farhat Leal Glucose [Mass/Vol] 179 mg/dL Critically high 74-106 [facility] Comment on above: Performed By: #### C MP, MG, PHOS ####[facility] Tsfpuckyqd4973 [place] [address]Dr. Farhat Leal Potassium [Moles/Vol] 3.8 mmol/L Normal 3.5-5.1 [facility] Comment on above: Performed By: #### C MP, MG, PHOS ####[facility] Lmzmtgtunv5067 [place] [address]Dr. Farhat Leal Protein [Mass/Vol] 6.0 g/dL Critically low 6.4-8.2 Th [facility] Comment on above: Performed By: #### C MP, MG, PHOS ####[facility] Xdvrpzvnuv[address] [place], [place] [address]Dr. Farhat Leal Sodium [Moles/Vol] 142 mmol/L Normal 136-145 [facility] Comment on above: Performed By: #### C MP, MG, PHOS ####[facility] Bgcjmqvpho[address] [place], [place] [address]Dr. Farhat Leal Urea nitrogen [Mass/Vol] 56.0 mg/dL Critically high 7.0-18.0 [facility] Comment on above: Performed By: #### C MP, MG, PHOS ####[facility] Ipvmwxxlfe[address] [place], [place] [address]Dr. Farhat Leal Urea nitrogen/Creatinine [Mass ratio] 36.6 mg/mg Normal [facility] Comment on above: Performed By: #### C MP, MG, PHOS ####[facility] Vrxfzhqtqu[address] [place], [place] [address]Dr. Farhat Leal FK506 (TACROLIMUS) WHOLE BLO ODon 06-08-2022 Tacrolimus (FK506), Blood 13.2 ng/mL Normal 2.0-20.0 [facility] Comment on above: Result Comment: Trou gh (immediately following transplant) 15.0 . Trough (steady state, 2 weeks or more after transplant): 3.0 - 8.0 . Performed by LC-MS/MS technology. Performed By: #### F K506T ####[facility] Dnmzwwrxlu[address] [place], [place] [address]Dr. Farhat Leal CBC AUTO DIFFon 06-05-2022 BASO # 0.1 103/ul Normal 0.0-0.1 [facility] Comment on above: Performed By: #### C BC ####[facility] Keqyydawap[address] [place] [address]Dr. Farhat Leal Basophils/100 WBC (Bld) 0.8 % Normal 0.2-2.0 [facility] Comment on above: Performed By: #### C BC ####[facility] Jpvpwhxpht8165 [place] [address]Dr. Farhat Leal EO # 0.3 103/ul Normal 0.0-0.7 [facility] Comment on above: Performed By: #### C BC ####[facility] Ceakatccsh9945 [place] [address]Dr. Farhat Leal Eosinophils/100 WBC (Bld) 4.7 % Normal 0.9-7.0 [facility] Comment on above: Performed By: #### C BC ####[facility] Amzmqdtrld2616 [place] [address]Dr. Farhat Leal Erythrocyte distribution width (RBC) [Ratio] 15.1 % Critically high 11.0-15.0 [facility] Comment on above: Performed By: #### C BC ####[facility] Xgneynwghc4469 [place] [address]Dr. Farhat Leal Hematocrit (Bld) [Volume fraction] 35.5 % Critically low 42.0-54.0 [facility] Comment on above: Performed By: #### C BC ####[facility] Rfjkvhjewp8[address] [place] [address]Dr. Farhat Leal Hemoglobin (Bld) [Mass/Vol] 11.7 g/dL Critically low 14.0-18.0 [facility] Comment on above: Performed By: #### C BC ####[facility] Rhbebukrfi3812 [place] [address]Dr. Farhat Elvis IG # 0.01 10e3/ul Normal 0.00-0.03 [facility] Comment on above: Performed By: #### C BC ####[facility] Ivlpsgkrin4111 [place] [phone]. Farhat Leal IG % 0.2 % Normal 0.0-0.5 [facility] Comment on above: Performed By: #### C BC ####[facility] Gibjnvntcp6678 [place] [phone]. Farhat Leal LYMPH # 2.1 103/ul Normal 1.2-3.8 [facility] Comment on above: Performed By: #### C BC ####[facility] Ievdcbkrvw9032 [place] [phone]. Farhat Elvis Lymphocytes/100 WBC (Bld) 34.5 % Normal 20.5-60.0 [facility] Comment on above: Performed By: #### C BC ####[facility] Knyniqvkks2890 [place] [phone]. Farhat Elvis MANUAL DIFF REQ NO Normal [facility] Comment on above: Performed By: #### C BC ####[facility] Wwcxoddmdo0301 [place] [phone]. Farhat Leal MCH (RBC) [Entitic mass] 30.6 pg Normal 25.9-34.0 [facility] Comment on above: Performed By: #### C BC ####[facility] Pppanicaop0563 [place] [phone]. Farhat Leal MCHC (RBC) [Mass/Vol] 33.0 g/dL Normal 29.9-35.2 [facility] Comment on above: Performed By: #### C BC ####[facility] Ldepliscyh9468 [place] [phone]. Farhat Leal MCV (RBC) [Entitic vol] 92.9 fL Normal 80.0-94.0 [facility] Comment on above: Performed By: #### C BC ####[facility] Qzasqogqoq3708 [place] [phone]. Farhat Elvis MONO # 0.7 103/ul Normal 0.3-0.8 [facility] Comment on above: Performed By: #### C BC ####[facility] Asygivkcxz3528 [place] [phone]. Farhat Leal Monocytes/100 WBC (Bld) 11.4 % Normal 1.7-12.0 [facility] Comment on above: Performed By: #### C BC ####[facility] Oytmirxfpz4166 [place] [phone]. Farhat Leal NEUT # 2.9 103/ul Normal 1.4-6.5 [facility] Comment on above: Performed By: #### C BC ####[facility] Ghprczmxpy9192 [place] [phone]. Farhat Leal Neutrophils/100 WBC (Bld) 48.4 % Normal 43.0-75.0 [facility] Comment on above: Performed By: #### C BC ####[facility] Abbqyddtwb2023 [place] [phone]. Farhat Leal Platelet mean volume (Bld) [Entitic vol] 10.7 fL Normal 9.5-13.5 [facility] Comment on above: Performed By: #### C BC ####[facility] Pkcmvdsnzt1782 [place] [phone]. Farhat Leal PLT 185 103/ul Normal 150-450 [facility] Comment on above: Performed By: #### C BC ####[facility] Kxpuehfoyp8866 [place] [phone]. Farhat Leal RBC 3.82 106/ul Critically low 4.70-6.10 [facility] Comment on above: Performed By: #### C BC ####[facility] Krydhyfqss4087 [place] [phone]. Farhat Leal WBC 6.0 103/ul Normal 4.0-11.0 [facility] Comment on above: Performed By: #### C BC ####[facility] Uyhangagqq3042 [place] [phone]. Farhat Leal MAGNESIUMon 06-05-2022 Magnesium [Mass/Vol] 1.9 mg/dL Normal 1.8-2.4 [facility] Comment on above: Performed By: #### P HOS, MG ####[facility] Zisgqjcpmd5419 [place] [phone]. Madelynlorri Leal PHOSPHORUSon 06-05-2022 Phosphate [Mass/Vol] 4.4 mg/dL Normal 2.6-4.7 [facility] Comment on above: Performed By: #### P HOS, MG ####[facility] Zeqawbibly7[address] [place] [address]Dr. Farhat Leal PROTIMEon 06-05-2022 INR Coag (PPP) [Relative time] 2.16 {INR} Normal [facility] Comment on above: Performed By: #### P T ####[facility] Pcvnonwtbz5839 [place] [address]Dr. Farhat Leal INR GUIDELINES SEE BELOW Normal [facility] Comment on above: Result Comment: MALINA RED INR: 2.0 - 3.0 CONDITIONS NOT LISTED BELOW 2.5 - 3.5 FOR PROSTHETIC HEART VALVE REPLACEMENT 2.5 - 3.5 RECURRENT THROMBOSIS Performed By: #### P T ####[facility] Yrgtxqqcds[address] [place], [place] [address]Dr. Farhat Leal PT Coag (PPP) [Time] 21.9 s Critically high 9.0-11.6 [facility] Comment on above: Performed By: #### P T ####[facility] Aibvazuovp8[address] [place], [place] [address]Dr. Farhat Leal FK506 (TACROLIMUS) WHOLE BLO ODon 06-01-2022 Tacrolimus (FK506), Blood 26.4 ng/mL Invalid Interpretation Code 2.0-20.0 [facility] Comment on above: Result Comment: Trou gh (immediately following transplant) 15.0 . Trough (steady state, 2 weeks or more after transplant): 3.0 - 8.0 . Performed by LC-MS/MS technology.Patient drug level exceeds published reference range. Evaluateclinically for signs of potential toxicity. Performed By: #### F K506T ####[facility] Krjbkcilak1075 [place] [address]DrSkylar Leal CBC AUTO DIFFon 05-29-2022 BASO # 0.0 103/ul Normal 0.0-0.1 [facility] Comment on above: Performed By: #### C BC ####[facility] Zeanhcbodx9384 [place] [phone]. Farhat Leal Basophils/100 WBC (Bld) 0.6 % Normal 0.2-2.0 [facility] Comment on above: Performed By: #### C BC ####[facility] Rrtvcdozhq[address] [place], [place] [address]Dr. Farhat Leal EO # 0.3 103/ul Normal 0.0-0.7 [facility] Comment on above: Performed By: #### C BC ####[facility] Qaxxtjwziq477[address] [place], [place] [address]Dr. Farhat Leal Eosinophils/100 WBC (Bld) 4.7 % Normal 0.9-7.0 [facility] Comment on above: Performed By: #### C BC ####[facility] Fahocxpvyj[address] [place], [place] [address]Dr. Farhat Leal Erythrocyte distribution width (RBC) [Ratio] 15.3 % Critically high 11.0-15.0 [facility] Comment on above: Performed By: #### C BC ####[facility] Lyimvdxwne[address] [place], [place] [address]Dr. Farhat Leal Hematocrit (Bld) [Volume fraction] 36.6 % Critically low 42.0-54.0 [facility] Comment on above: Performed By: #### C BC ####[facility] Hoeebbvqso306[address] [place], [place] [address]Dr. Farhat Leal Hemoglobin (Bld) [Mass/Vol] 12.3 g/dL Critically low 14.0-18.0 [facility] Comment on above: Performed By: #### C BC ####[facility] Gduuexaige[address] [place], [place] [address]Dr. Farhat Leal IG # 0.02 10e3/ul Normal 0.00-0.03 [facility] Comment on above: Performed By: #### C BC ####[facility] [address] [place], [place] [address]Dr. Farhat Leal IG % 0.3 % Normal 0.0-0.5 [facility] Comment on above: Performed By: #### C BC ####[facility] Syykgdfara2868 [place] [phone]. Farhat Elvis LYMPH # 2.8 103/ul Normal 1.2-3.8 [facility] Comment on above: Performed By: #### C BC ####[facility] Qxlqjhyhix7526 [place] [phone]. Farhat Leal Lymphocytes/100 WBC (Bld) 44.4 % Normal 20.5-60.0 [facility] [facility] Comment on above: Performed By: #### C BC ####[facility] [address]myohbxv[address] [place] [address]Dr. Farhat Leal MANUAL DIFF REQ NO Normal [facility] Comment on above: Performed By: #### C BC ####[facility] Jlgumjqdxc4359 [place] [phone]. Farhat Leal MCH (RBC) [Entitic mass] 30.4 pg Normal 25.9-34.0 [facility] Comment on above: Performed By: #### C BC ####[facility] Nsyetrnyzc0932 [place] [phone]. Madelynlorri Leal MCHC (RBC) [Mass/Vol] 33.6 g/dL Normal 29.9-35.2 [facility] Comment on above: Performed By: #### C BC ####[facility] Cocszoisgy1396 [place] [phone]. Farhat Leal MCV (RBC) [Entitic vol] 90.4 fL Normal 80.0-94.0 [facility] Comment on above: Performed By: #### C BC ####[facility] Pvjuwlbrzx8947 [place] [phone]. Farhat Leal MONO # 0.7 103/ul Normal 0.3-0.8 [facility] Comment on above: Performed By: #### C BC ####[facility] Vpgwsjngyx6941 [place] [phone]. Farhat Leal Monocytes/100 WBC (Bld) 10.7 % Normal 1.7-12.0 [facility] Comment on above: Performed By: #### C BC ####[facility] Zzmjnvkntr5065 [place] [phone]. Farhat Leal NEUT # 2.5 103/ul Normal 1.4-6.5 [facility] Comment on above: Performed By: #### C BC ####[facility] Mzvklnqirf3526 [place] [phone]. Farhat Leal Neutrophils/100 WBC (Bld) 39.3 % Critically low 43.0-75.0 [facility] Comment on above: Performed By: #### C BC ####[facility] Uybftydnqt[address] [place] [phone]. Farhat Leal Platelet mean volume (Bld) [Entitic vol] 10.5 fL Normal 9.5-13.5 [facility] Comment on above: Performed By: #### C BC ####[facility] Owyioudajr5759 [place] [phone]. Farhat Leal PLT 190 103/ul Normal 150-450 [facility] Comment on above: Performed By: #### C BC ####[facility] Judinxwkrb3916 [place] [phone]. Farhat Leal RBC 4.05 106/ul Critically low 4.70-6.10 [facility] Comment on above: Performed By: #### C BC ####[facility] Wjbknejswk9194 [place] [phone]. Farhat Leal WBC 6.4 103/ul Normal 4.0-11.0 [facility] Comment on above: Performed By: #### C BC ####[facility] Srczfciare4525 [place] [phone] Leal PROF 14(COMP METB)on 023 Albumin [Mass/Vol] 2.5 g/dL Critically low 3.4-5.0 Th [facility] Comment on above: Performed By: #### C MP ####[facility] Hmbedkxtab2233 [place] [phone] Leal Albumin/Globulin [Mass ratio] 0.8 {ratio} Normal [facility] Comment on above: Performed By: #### C MP ####[facility] Bjajcfhvxx6861 [place] [address]Dr. Farhat Leal ALP [Catalytic activity/Vol] 61 U/L Normal 46-116 [facility] Comment on above: Performed By: #### C MP ####[facility] Vlvakjvhaz9832 [place] [address]Dr. Farhat Elvis ALT [Catalytic activity/Vol] 16 U/L Normal 16-63 [facility] Comment on above: Performed By: #### C MP ####[facility] Xdrgffehqq4887 [place] [address]Dr. Farhat Elvis Anion gap [Moles/Vol] 12.3 mmol/L Normal [facility] Comment on above: Performed By: #### C MP ####[facility] Jgkjetcxao[address] [place], [place] [address]Dr. Farhat Elvis AST [Catalytic activity/Vol] 18 U/L Normal 15-37 [facility] Comment on above: Performed By: #### C MP ####[facility] Ypcadflwyn9[address] [place], [place] [address]Dr. Farhat Elvis Bilirubin [Mass/Vol] 0.5 mg/dL Normal 0.2-1.0 [facility] Comment on above: Performed By: #### C MP ####[facility] Upletermry[address] [place], [place] [address]Dr. Farhat Elvis Calcium [Mass/Vol] 8.6 mg/dL Normal 8.5-10.1 [facility] Comment on above: Performed By: #### C MP ####[facility] Okidmwkxrb5569 [place] [address]Dr. Farhat Leal Chloride [Moles/Vol] 105 mmol/L Normal 98-107 [facility] Comment on above: Performed By: #### C MP ####[facility] Yvhilmzunz3570 [place] [address]Dr. Farhat Leal CO2 [Moles/Vol] 28.6 mmol/L Normal 21.0-32.0 [facility] Comment on above: Performed By: #### C MP ####[facility] Twpcchpmwe9969 [place] [phone]. Farhat Leal Creatinine [Mass/Vol] 1.47 mg/dL Critically high 0.70-1.30 [facility] Comment on above: Performed By: #### C MP ####[facility] Nokvjjwfax3976 [place] [phone]. Farhat Leal EGFR-AF CYMRAES 56 mL/min/1.73m2 Critically low >=60 [facility] Comment on above: Performed By: #### C MP ####[facility] Hgnqeytspw9085 [place] [phone]. Farhat Elvis EGFR-NON AF CYMRAES 46 mL/min/1.73m2 Critically low >=60 [facility] Comment on above: Performed By: #### C MP ####[facility] Iidkgrzfom7916 [place] [address]Dr. Farhat Elvis Globulin (S) [Mass/Vol] 3.3 g/dL Normal [facility] Comment on above: Performed By: #### C MP ####[facility] Iikidixuas6253 [place] [address]Dr. Farhat Leal Glucose [Mass/Vol] 164 mg/dL Critically high 74-106 [facility] Comment on above: Performed By: #### C MP ####[facility] Pvdriboxta3460 [place] [address]Dr. Farhat Elvis Potassium [Moles/Vol] 3.9 mmol/L Normal 3.5-5.1 [facility] Comment on above: Performed By: #### C MP ####[facility] Bjdcrqvasa3752 [place] [address]Dr. Farhat Leal Protein [Mass/Vol] 5.8 g/dL Critically low 6.4-8.2 Th [facility] Comment on above: Performed By: #### C MP ####[facility] Iuwvseolyp5798 [place] [address]Dr. Farhat Elvis Sodium [Moles/Vol] 142 mmol/L Normal 136-145 [facility] Comment on above: Performed By: #### C MP ####[facility] Fotkbmmupq5309 [place] [address]Dr. Farhat Leal Urea nitrogen [Mass/Vol] 53.0 mg/dL Critically high 7.0-18.0 [facility] Comment on above: Performed By: #### C MP ####[facility] Fqllqtvvza[address] [place], [place] [address]Dr. Farhat Leal Urea nitrogen/Creatinine [Mass ratio] 36.1 mg/mg Normal [facility] Comment on above: Performed By: #### C MP ####[facility] Jhbxmbqnkb[address] [place], [place] [address]Dr. Farhat Leal PROTIMEon 05-29-2022 INR Coag (PPP) [Relative time] 2.41 {INR} Normal [facility] Comment on above: Performed By: #### P T ####[facility] Sigiorjrqy[address] [place], [place] [address]Dr. Farhat Leal INR GUIDELINES SEE BELOW Normal [facility] Comment on above: Result Comment: MALINA RED INR: 2.0 - 3.0 CONDITIONS NOT LISTED BELOW 2.5 - 3.5 FOR PROSTHETIC HEART VALVE REPLACEMENT 2.5 - 3.5 RECURRENT THROMBOSIS Performed By: #### P T ####[facility] Iwnkkcwyy[address] [place], [place] [address]Dr. Farhat Leal PT Coag (PPP) [Time] 24.3 s Critically high 9.0-11.6 [facility] Comment on above: Performed By: #### P T ####[facility] Ndaokqidhy[address] [place], [place] [address]Dr. Farhat Leal FK506 (TACROLIMUS) WHOLE BLO ODon 05-25-2022 Tacrolimus (FK506), Blood 5.1 ng/mL Normal 2.0-20.0 [facility] Comment on above: Result Comment: Trou gh (immediately following transplant) 15.0 . Trough (steady state, 2 weeks or more after transplant): 3.0 - 8.0 . Performed by LC-MS/MS technology. Performed By: #### F K506T ####[facility] Bfxutobbni0190 [place] [address]Dr. Farhat Leal CBC AUTO DIFFon 05-22-2022 BASO # 0.0 103/ul Normal 0.0-0.1 [facility] Comment on above: Performed By: #### C BC ####[facility] Vkicsityhy[address] [place], [place] [address]Dr. Farhat Leal Basophils/100 WBC (Bld) 0.5 % Normal 0.2-2.0 [facility] Comment on above: Performed By: #### C BC ####[facility] Zsflzeruip[address] [place], [place] [address]Dr. Farhat Leal EO # 0.2 103/ul Normal 0.0-0.7 [facility] Comment on above: Performed By: #### C BC ####[facility] Rxtfeefmxa117[address] [place], [place] [address]Dr. Madelynlorri Leal Eosinophils/100 WBC (Bld) 4.0 % Normal 0.9-7.0 [facility] Comment on above: Performed By: #### C BC ####[facility] [address]qayhjgtw[address] [place], [place] [address]Dr. Farhat Leal Erythrocyte distribution width (RBC) [Ratio] 15.5 % Critically high 11.0-15.0 [facility] Comment on above: Performed By: #### C BC ####[facility] Zohiyskdls[address] [place], [place] [address]Dr. Farhat Leal Hematocrit (Bld) [Volume fraction] 34.1 % Critically low 42.0-54.0 [facility] Comment on above: Performed By: #### C BC ####[facility] Rmrqdjbsxo[address] [place], [place] [address]Dr. Farhat Leal Hemoglobin (Bld) [Mass/Vol] 11.3 g/dL Critically low 14.0-18.0 [facility] Comment on above: Performed By: #### C BC ####[facility] Tppurrfjbl[address] [place], [place] [address]Dr. Farhat Leal IG # 0.03 10e3/ul Normal 0.00-0.03 [facility] Comment on above: Performed By: #### C BC ####[facility] Jotnkwgfae5421 [place] [phone]. Farhat Leal IG % 0.5 % Normal 0.0-0.5 [facility] Comment on above: Performed By: #### C BC ####[facility] Mnsedeplgy9511 [place] [phone]. Farhat Leal LYMPH # 2.1 103/ul Normal 1.2-3.8 [facility] Comment on above: Performed By: #### C BC ####[facility] Tsiatvxkjw7924 [place] [phone]. Farhat Elvis Lymphocytes/100 WBC (Bld) 34.6 % Normal 20.5-60.0 [facility] Comment on above: Performed By: #### C BC ####[facility] Ciwheqbqqd5430 [place] [phone]. Farhat Leal MANUAL DIFF REQ NO Normal [facility] Comment on above: Performed By: #### C BC ####[facility] Fieozleckn1009 [place] [phone]. Farhat Leal MCH (RBC) [Entitic mass] 30.3 pg Normal 25.9-34.0 [facility] Comment on above: Performed By: #### C BC ####[facility] Wfucqjhuzm2612 [place] [phone]. Farhat Leal MCHC (RBC) [Mass/Vol] 33.1 g/dL Normal 29.9-35.2 [facility] Comment on above: Performed By: #### C BC ####[facility] Tanguntktz[address] [place], [place] [address]Dr. Farhat Leal MCV (RBC) [Entitic vol] 91.4 fL Normal 80.0-94.0 [facility] Comment on above: Performed By: #### C BC ####[facility] Bjkrefpucx2268 [place] [phone]. Farhat Elvis MONO # 0.7 103/ul Normal 0.3-0.8 [facility] Comment on above: Performed By: #### C BC ####[facility] Qyecnkkzdh8191 [place] [phone]. Farhat Leal Monocytes/100 WBC (Bld) 11.6 % Normal 1.7-12.0 [facility] Comment on above: Performed By: #### C BC ####[facility] Iumwcksmfz0435 [place] [phone]. Farhat Leal NEUT # 2.9 103/ul Normal 1.4-6.5 [facility] Comment on above: Performed By: #### C BC ####[facility] Gmctjcvtop0475 [place] [phone]. Farhat Leal Neutrophils/100 WBC (Bld) 48.8 % Normal 43.0-75.0 [facility] Comment on above: Performed By: #### C BC ####[facility] Sbbwtgzasj0872 [place] [phone]. Farhat Leal Platelet mean volume (Bld) [Entitic vol] 10.9 fL Normal 9.5-13.5 [facility] Comment on above: Performed By: #### C BC ####[facility] Oqfpmoosrt5973 [place] [phone]. Farhat Leal PLT 186 103/ul Normal 150-450 [facility] Comment on above: Performed By: #### C BC ####[facility] Pzisnlijpp2357 [place] [phone]. Farhat Leal RBC 3.73 106/ul Critically low 4.70-6.10 [facility] Comment on above: Performed By: #### C BC ####[facility] Pibkihncgr4954 [place] [phone]. Farhat Leal WBC 6.0 103/ul Normal 4.0-11.0 [facility] Comment on above: Performed By: #### C BC ####[facility] Zbasyypadl8023 [place] [phone]. Farhat Leal PROF 14(COMP METB)on 023 Albumin [Mass/Vol] 2.7 g/dL Critically low 3.4-5.[address] [facility] Comment on above: Performed By: #### C MP ####[facility] Quqijjnbxr3284 [place] [phone]. Farhat Elvis Albumin/Globulin [Mass ratio] 0.8 {ratio} Normal [facility] Comment on above: Performed By: #### C MP ####[facility] Otkuuqvvfw9051 [place] [phone]. Madelynlorri Elvis ALP [Catalytic activity/Vol] 60 U/L Normal 46-116 [facility] Comment on above: Performed By: #### C MP ####[facility] Amvlftpkxo9[address] [place], [place] [address]Dr. Farhat Elvis ALT [Catalytic activity/Vol] 17 U/L Normal 16-63 [facility] Comment on above: Performed By: #### C MP ####[facility] Vwibduayjy[address] [place], [place] [address]Dr. Farhat Leal Anion gap [Moles/Vol] 9.6 mmol/L Normal [facility] Comment on above: Performed By: #### C MP ####[facility] Ofyxeapupw9[address] [place], [place] [address]Dr. Farhat Elvis AST [Catalytic activity/Vol] 14 U/L Critically low 15-37 [facility] Comment on above: Performed By: #### C MP ####[facility] Euxgegjizt[address] [place], [place] [address]Dr. Farhat Leal Bilirubin [Mass/Vol] 0.5 mg/dL Normal 0.2-1.0 [facility] Comment on above: Performed By: #### C MP ####[facility] Qtnntkbpox512[address] [place], [place] [address]Dr. Farhat Leal Calcium [Mass/Vol] 8.4 mg/dL Critically low 8.5-10.1 Th [facility] Comment on above: Performed By: #### C MP ####[facility] Zkkirptlxh063[address] [place], [place] [address]Dr. Farhat Leal Chloride [Moles/Vol] 104 mmol/L Normal 98-107 [facility] Comment on above: Performed By: #### C MP ####[facility] Fqgbyobpai6712 [place] [address]Dr. Farhat Leal CO2 [Moles/Vol] 27.2 mmol/L Normal 21.0-32.0 [facility] Comment on above: Performed By: #### C MP ####[facility] Jgkpkmuacb1911 [place] [address]Dr. Farhat Leal Creatinine [Mass/Vol] 1.24 mg/dL Normal 0.70-1.30 [facility] Comment on above: Performed By: #### C MP ####[facility] Tdqsnsupjs8143 [place] [address]Dr. Farhat Leal EGFR-AF CYMRAES >60 Normal >=60 [facility] Comment on above: Performed By: #### C MP ####[facility] Zardryrwot5540 [place] [address]Dr. Farhat Elvis EGFR-NON AF CYMRAES 57 mL/min/1.73m2 Critically low >=60 [facility] Comment on above: Performed By: #### C MP ####[facility] Jezpmzpemn3396 [place] [address]Dr. Farhat Leal Globulin (S) [Mass/Vol] 3.3 g/dL Normal [facility] Comment on above: Performed By: #### C MP ####[facility] Pwdjzjbrsj8652 [place] [address]Dr. Farhat Elvis Glucose [Mass/Vol] 275 mg/dL Critically high 74-106 [facility] [place] Comment on above: Performed By: #### C MP ####[facility] Jfouyzbhos0701 [place] [address]Dr. Farhat Elvis Potassium [Moles/Vol] 3.8 mmol/L Normal 3.5-5.1 [facility] Comment on above: Performed By: #### C MP ####[facility] Uofqbclqun[address] [place], [place] [address]Dr. Farhat Leal Protein [Mass/Vol] 6.0 g/dL Critically low 6.4-8.2 Th [facility] Comment on above: Performed By: #### C MP ####[facility] Rxkhmhtywm5360 [place] [address]Dr. Farhat Leal Sodium [Moles/Vol] 137 mmol/L Normal 136-145 [facility] Comment on above: Performed By: #### C MP ####[facility] Aywfujxmab[address] [place], [place] [address]Dr. Farhat Leal Urea nitrogen [Mass/Vol] 54.0 mg/dL Critically high 7.0-18.0 [facility] Comment on above: Performed By: #### C MP ####[facility] Obcatfjzxv07[address] [place], [place] [address]Dr. Farhat Leal Urea nitrogen/Creatinine [Mass ratio] 43.5 mg/mg Normal [facility] Comment on above: Performed By: #### C MP ####[facility] Tyzsrjeiro[address] [place], [place] [address]Dr. Farhat Leal PROTIMEon 05-22-2022 INR Coag (PPP) [Relative time] 2.27 {INR} Normal [facility] Comment on above: Performed By: #### P T ####[facility] Gygdiwsvsp[address] [place], [place] [address]Dr. Farhat Leal INR GUIDELINES SEE BELOW Normal [facility] Comment on above: Result Comment: MALINA RED INR: 2.0 - 3.0 CONDITIONS NOT LISTED BELOW 2.5 - 3.5 FOR PROSTHETIC HEART VALVE REPLACEMENT 2.5 - 3.5 RECURRENT THROMBOSIS Performed By: #### P T ####[facility] Xqhxqfvslx[address] [place], [place] [address]Dr. Farhat Leal PT Coag (PPP) [Time] 23.0 s Critically high 9.0-11.6 [facility] Comment on above: Performed By: #### P T ####[facility] Tfvjsdlhnj[address] [place], [place] [address]Dr. Farhat Leal FK506 (TACROLIMUS) WHOLE BLO ODon 05-19-2022 Tacrolimus (FK506), Blood 7.8 ng/mL Normal 2.0-20.0 [facility] Comment on above: Result Comment: Trou gh (immediately following transplant) 15.0 . Trough (steady state, 2 weeks or more after transplant): 3.0 - 8.0 . Performed by LC-MS/MS technology. Performed By: #### F K506T ####[facility] Nlfzujjhtr5604 [place] [address]Dr. Farhat Leal CBC AUTO DIFFon 05-15-2022 BASO # 0.0 103/ul Normal 0.0-0.1 [facility] Comment on above: Performed By: #### C BC ####[facility] Rllnguvpxb1854 [place] [address]Dr. Farhat Elvis Basophils/100 WBC (Bld) 0.4 % Normal 0.2-2.0 [facility] Comment on above: Performed By: #### C BC ####[facility] Ozoqqvgfav[address] [place], [place] [address]Dr. Farhat Leal EO # 0.2 103/ul Normal 0.0-0.7 [facility] Comment on above: Performed By: #### C BC ####[facility] Nlmeeatiea[address] [place], [place] [address]Dr. Farhat Elvis Eosinophils/100 WBC (Bld) 3.0 % Normal 0.9-7.0 [facility] Comment on above: Performed By: #### C BC ####[facility] Gekabpsrql24[address] [place], [place] [address]Dr. Farhat Leal Erythrocyte distribution width (RBC) [Ratio] 15.7 % Critically high 11.0-15.0 [facility] Comment on above: Performed By: #### C BC ####[facility] Aqmlrzufei257[address] [place], [place] [address]Dr. Farhat Leal Hematocrit (Bld) [Volume fraction] 36.8 % Critically low 42.0-54.0 [facility] Comment on above: Performed By: #### C BC ####[facility] Vqoctmrvdm[address] [place], [place] [address]Dr. Farhat Leal Hemoglobin (Bld) [Mass/Vol] 12.4 g/dL Critically low 14.0-18.0 [facility] Comment on above: Performed By: #### C BC ####[facility] Webpibqiqz[address] [place], [place] [address]DrSkylar Leal IG # 0.01 10e3/ul Normal 0.00-0.03 [facility] Comment on above: Performed By: #### C BC ####[facility] Naljccyovq8808 [place] [address]DrSkylar Leal IG % 0.1 % Normal 0.0-0.5 [facility] Comment on above: Performed By: #### C BC ####[facility] Ssjmewueah9183 [place] [address]DrSkylar Leal LYMPH # 2.4 103/ul Normal 1.2-3.8 [facility] Comment on above: Performed By: #### C BC ####[facility] Axgyjcyoew[address] [place], [place] [address]DrSkylar Leal Lymphocytes/100 WBC (Bld) 35.6 % Normal 20.5-60.0 [facility] Comment on above: Performed By: #### C BC ####[facility] Lvuslldwaz[address] [place], [place] [address]DrSkylar Leal MANUAL DIFF REQ NO Normal [facility] Comment on above: Performed By: #### C BC ####[facility] Kphkmjqxoj816[address] [place], [place] [address]DrSkylar Leal MCH (RBC) [Entitic mass] 30.1 pg Normal 25.9-34.0 [facility] Comment on above: Performed By: #### C BC ####[facility] Wmjyxccwgk[address] [place], [place] [address]DrSkylar Leal MCHC (RBC) [Mass/Vol] 33.7 g/dL Normal 29.9-35.2 [facility] Comment on above: Performed By: #### C BC ####[facility] Aajhhujydt0808 [place] [address]DrSkylar Leal MCV (RBC) [Entitic vol] 89.3 fL Normal 80.0-94.0 [facility] Comment on above: Performed By: #### C BC ####[facility] Xjkokuxttl[address] [place], [place] [address]DrSkylar Leal MONO # 0.7 103/ul Normal 0.3-0.8 [facility] Comment on above: Performed By: #### C BC ####[facility] Qzgvhwuopx7835 [place] [phone] Leal Monocytes/100 WBC (Bld) 10.8 % Normal 1.7-12.0 [facility] Comment on above: Performed By: #### C BC ####[facility] Nocxckgdoj1236 [place] [phone] Leal NEUT # 3.4 103/ul Normal 1.4-6.5 [facility] Comment on above: Performed By: #### C BC ####[facility] Ctfeojeybc3529 [place] [address]DrSkylar Farhat Leal Neutrophils/100 WBC (Bld) 50.1 % Normal 43.0-75.0 [facility] Comment on above: Performed By: #### C BC ####[facility] Z[address]pm[address] [place], [place] [id number] Farhat Leal Platelet mean volume (Bld) [Entitic vol] 10.2 fL Normal 9.5-13.5 [facility] Comment on above: Performed By: #### C BC ####[facility] Ghvrfxtskk[address] [place], [place] [id number]. Farhat Leal PLT 190 103/ul Normal 150-450 [facility] Comment on above: Performed By: #### C BC ####[facility] Ufeeaapfok22[address] [place] [phone] Farhat Leal RBC 4.12 106/ul Critically low 4.70-6.10 [facility] Comment on above: Performed By: #### C BC ####[facility] Qdwrmcefar8531 [place] [phone] Farhat Leal WBC 6.8 103/ul Normal 4.0-11.0 [facility] Comment on above: Performed By: #### C BC ####[facility] Xoghoidpof[address] [place], [place] [address]DrSkylar Farhat Elvis PROF 14(COMP METB)on 023 Albumin [Mass/Vol] 2.8 g/dL Critically low 3.4-5.[address] [facility] Comment on above: Performed By: #### C MP ####[facility] Uecubpsefb1737 [place] [address]Dr. Farhat Leal Albumin/Globulin [Mass ratio] 0.9 {ratio} Normal [facility] Comment on above: Performed By: #### C MP ####[facility] Wewbaxzfqm8355 [place] [address]Dr. Farhat Leal ALP [Catalytic activity/Vol] 66 U/L Normal 46-116 [facility] Comment on above: Performed By: #### C MP ####[facility] Xyhqbegrhv[address] [place], [place] [address]Dr. Farhat Leal ALT [Catalytic activity/Vol] 15 U/L Critically low 16-63 [facility] Comment on above: Performed By: #### C MP ####[facility] Qqwcurzzli1914[address] [place], [place] [address]Dr. Farhat Leal Anion gap [Moles/Vol] 11.1 mmol/L Normal [facility] Comment on above: Performed By: #### C MP ####[facility] Bwrkntdifs358[address] [place], [place] [address]Dr. Farhat Leal AST [Catalytic activity/Vol] 14 U/L Critically low 15-37 [facility] Comment on above: Performed By: #### C MP ####[facility] Xolpbprfap[address] [place], [place] [address]Dr. Farhat Leal Bilirubin [Mass/Vol] 0.8 mg/dL Normal 0.2-1.0 [facility] Comment on above: Performed By: #### C MP ####[facility] Nggkedenfd028[address] [place], [place] [address]Dr. Farhat Leal Calcium [Mass/Vol] 8.9 mg/dL Normal 8.5-10.1 [facility] Comment on above: Performed By: #### C MP ####[facility] Ouhvfwfddd[address] [place], [place] [address]Dr. Farhat Leal Chloride [Moles/Vol] 101 mmol/L Normal 98-107 [facility] Comment on above: Performed By: #### C MP ####[facility] Xrrfoatrod2228 [place] [address]Dr. Farhat Leal CO2 [Moles/Vol] 28.2 mmol/L Normal 21.0-32.0 [facility] Comment on above: Performed By: #### C MP ####[facility] Thdiwpgxwy8951 [place] [address]Dr. Farhat Elvis Creatinine [Mass/Vol] 1.23 mg/dL Normal 0.70-1.30 [facility] Comment on above: Performed By: #### C MP ####[facility] Zfryvbqsal0590 [place] [address]Dr. Farhat Elvis EGFR-AF CYMRAES >60 Normal >=60 [facility] Comment on above: Performed By: #### C MP ####[facility] Kelmxfnnfm4338 [place] [address]Dr. Madelynlorri Elvis EGFR-NON AF CYMRAES 57 mL/min/1.73m2 Critically low >=60 [facility] Comment on above: Performed By: #### C MP ####[facility] Vbcmjkqzxy6269 [place] [address]Dr. Farhat Elvis Globulin (S) [Mass/Vol] 3.2 g/dL Normal [facility] Comment on above: Performed By: #### C MP ####[facility] Hgikibrlgq1246 [place] [address]Dr. Farhat Leal Glucose [Mass/Vol] 333 mg/dL Critically high 74-106 [facility] Comment on above: Performed By: #### C MP ####[facility] Zfkeiabfnd6191 [place] [address]Dr. Madelynlorri Leal Potassium [Moles/Vol] 4.3 mmol/L Normal 3.5-5.1 [facility] Comment on above: Performed By: #### C MP ####[facility] Wutoblztnk0873 [place] [address]Dr. Farhat Leal Protein [Mass/Vol] 6.0 g/dL Critically low 6.4-8.2 [facility] Comment on above: Performed By: #### C MP ####[facility] Nmhaligzqw0567 [place] [address]Dr. Farhat Leal Sodium [Moles/Vol] 136 mmol/L Normal 136-145 [facility] Comment on above: Performed By: #### C MP ####[facility] Uxityethnl[address] [place], [place] [address]Dr. Farhat Leal Urea nitrogen [Mass/Vol] 58.0 mg/dL Critically high 7.0-18.0 [facility] Comment on above: Performed By: #### C MP ####[facility] Ynlduvqnkn276[address] [place], [place] [address]Dr. Farhat Leal Urea nitrogen/Creatinine [Mass ratio] 47.2 mg/mg Normal [facility] Comment on above: Performed By: #### C MP ####[facility] Ivtahaarna[address] [place], [place] [address]Dr. Farhat Leal PROTIMEon 05-13-2022 INR Coag (PPP) [Relative time] 3.51 {INR} Normal [facility] Comment on above: Performed By: #### P T ####[facility] Ynjuhftcet[address] [place], [place] [address]Dr. Farhat Leal INR GUIDELINES SEE BELOW Normal [facility] Comment on above: Result Comment: MALINA RED INR: 2.0 - 3.0 CONDITIONS NOT LISTED BELOW 2.5 - 3.5 FOR PROSTHETIC HEART VALVE REPLACEMENT 2.5 - 3.5 RECURRENT THROMBOSIS Performed By: #### P T ####[facility] Remtcyxwrw[address] [place], [place] [address]Dr. Farhat Leal PT Coag (PPP) [Time] 34.7 s Critically high 9.0-11.6 [facility] Comment on above: Performed By: #### P T ####[facility] Onamqbpjty259[address] [place], [place] [address]Dr. Farhat Leal FK506 (TACROLIMUS) WHOLE BLO ODon 05-11-2022 Tacrolimus (FK506), Blood 14.4 ng/mL Normal 2.0-20.0 [facility] Comment on above: Result Comment: Trou gh (immediately following transplant) 15.0 . Trough (steady state, 2 weeks or more after transplant): 3.0 - 8.0 . Performed by LC-MS/MS technology. Performed By: #### F K506T ####[facility] Svnppnzshq334[address] [place], [place] [address]Dr. Farhat Leal CBC AUTO DIFFon 05-08-2022 BASO # 0.0 103/ul Normal 0.0-0.1 [facility] Comment on above: Performed By: #### C BC ####[facility] Cnfjodzdvk[address] [place], [place] [address]Dr. Farhat Leal Basophils/100 WBC (Bld) 0.5 % Normal 0.2-2.0 [facility] Comment on above: Performed By: #### C BC ####[facility] Fanttjqkqa907[address] [place], [place] [address]Dr. Farhat Leal EO # 0.2 103/ul Normal 0.0-0.7 [facility] Comment on above: Performed By: #### C BC ####[facility] Ltfucukloj[address] [place], [place] [address]Dr. Farhat Leal Eosinophils/100 WBC (Bld) 2.9 % Normal 0.9-7.0 [facility] Comment on above: Performed By: #### C BC ####[facility] Iopjdyncyk127[address] [place], [place] [address]Dr. Farhat Leal Erythrocyte distribution width (RBC) [Ratio] 16.0 % Critically high 11.0-15.0 [facility] Comment on above: Performed By: #### C BC ####[facility] Crkindqglp758[address] [place], [place] [address]Dr. Farhat Leal Hematocrit (Bld) [Volume fraction] 35.7 % Critically low 42.0-54.0 [facility] Comment on above: Performed By: #### C BC ####[facility] Eoiipbuvkw[address] [place], [place] [address]Dr. Farhat Leal Hemoglobin (Bld) [Mass/Vol] 11.9 g/dL Critically low 14.0-18.0 [facility] Comment on above: Performed By: #### C BC ####[facility] Withnptfwc6881 [place] [address]Dr. Farhat Leal IG # 0.03 10e3/ul Normal 0.00-0.03 [facility] Comment on above: Performed By: #### C BC ####[facility] Smzyxkmcoe1709 [place] [address]Dr. Farhat Leal IG % 0.5 % Normal 0.0-0.5 [facility] Comment on above: Performed By: #### C BC ####[facility] Rritctqnbf0707 [place] [address]Dr. Farhat Leal LYMPH # 2.4 103/ul Normal 1.2-3.8 [facility] Comment on above: Performed By: #### C BC ####[facility] Cogdvhjahc9828 [place] [address]Dr. Farhat Leal Lymphocytes/100 WBC (Bld) 37.8 % Normal 20.5-60.0 [facility] Comment on above: Performed By: #### C BC ####[facility] Ysbxapkmvv1448 [place] [address]Dr. Farhat Leal MANUAL DIFF REQ NO Normal [facility] Comment on above: Performed By: #### C BC ####[facility] Jagkzpcjhl7665 [place] [address]Dr. Farhat Leal MCH (RBC) [Entitic mass] 30.4 pg Normal 25.9-34.0 [facility] Comment on above: Performed By: #### C BC ####[facility] Yumvonmsst2383 [place] [phone]. Farhat Leal MCHC (RBC) [Mass/Vol] 33.3 g/dL Normal 29.9-35.2 [facility] Comment on above: Performed By: #### C BC ####[facility] Ogkzyookbj3759 [place] [address]Dr. Farhat Leal MCV (RBC) [Entitic vol] 91.1 fL Normal 80.0-94.0 [facility] Comment on above: Performed By: #### C BC ####[facility] Loaiccfyuo1321 [place] [phone]. Farhat Leal MONO # 0.7 103/ul Normal 0.3-0.8 [facility] Comment on above: Performed By: #### C BC ####[facility] Fosnuubvdo3003 [place] [phone]. Farhat Leal Monocytes/100 WBC (Bld) 11.1 % Normal 1.7-12.0 [facility] Comment on above: Performed By: #### C BC ####[facility] Qttxjjuxzm0428 [place] [phone]. Farhat Leal NEUT # 2.9 103/ul Normal 1.4-6.5 [facility] Comment on above: Performed By: #### C BC ####[facility] Msoiceschp5066 [place] [phone]. Farhat Leal Neutrophils/100 WBC (Bld) 47.2 % Normal 43.0-75.0 [facility] Comment on above: Performed By: #### C BC ####[facility] Qtjfdcdgxr4908 [place] [phone]. Farhat Leal Platelet mean volume (Bld) [Entitic vol] 11.0 fL Normal 9.5-13.5 [facility] Comment on above: Performed By: #### C BC ####[facility] Yaalspfsyv2702 [place] [phone]. Farhat Leal PLT 191 103/ul Normal 150-450 [facility] Comment on above: Performed By: #### C BC ####[facility] Wibfulghje2005 [place] [phone]. Farhat Leal RBC 3.92 106/ul Critically low 4.70-6.10 [facility] Comment on above: Performed By: #### C BC ####[facility] Yursvvibvw3162 [place] [phone]. Farhat Leal WBC 6.2 103/ul Normal 4.0-11.0 [facility] Comment on above: Performed By: #### C BC ####[facility] Araogljhar3465 [place] [address]Dr. Farhat Leal MAGNESIUMon 05-08-2022 Magnesium [Mass/Vol] 1.9 mg/dL Normal 1.8-2.4 [facility] Comment on above: Performed By: #### P HOS, MG ####[facility] Enfxcjdkxd8428 [place] [address]Dr. Farhat Leal PHOSPHORUSon 05-08-2022 Phosphate [Mass/Vol] 4.5 mg/dL Normal 2.6-4.7 [facility] Comment on above: Performed By: #### P HOS, MG ####[facility] Wpxjbbtats7309 [place] [address]Dr. Farhat Leal PROF 14(COMP METB)on 023 Albumin [Mass/Vol] 2.9 g/dL Critically low 3.4-5.[address] [facility] Comment on above: Performed By: #### C MP ####[facility] Hzqgkhoxvw956[address] [place], [place] [address]Dr. Farhat Leal Albumin/Globulin [Mass ratio] 0.9 {ratio} Normal [facility] Comment on above: Performed By: #### C MP ####[facility] Bxfymedbvo94[address] [place], [place] [address]Dr. Farhat Leal ALP [Catalytic activity/Vol] 70 U/L Normal 46-116 [facility] Comment on above: Performed By: #### C MP ####[facility] Uisbhunfkx698[address] [place], [place] [address]Dr. Farhat Leal ALT [Catalytic activity/Vol] 13 U/L Critically low 16-63 [facility] Comment on above: Performed By: #### C MP ####[facility] Qyyaergmwr[address] [place], [place] [address]Dr. Faraht Leal Anion gap [Moles/Vol] 14.6 mmol/L Normal [facility] Comment on above: Performed By: #### C MP ####[facility] Mboolybidy195[address] [place], [place] [address]Dr. Farhat Leal AST [Catalytic activity/Vol] 17 U/L Normal 15-37 [facility] Comment on above: Performed By: #### C MP ####[facility] Otugaifyhv9910 [place] [address]Dr. Farhat Leal Bilirubin [Mass/Vol] 0.8 mg/dL Normal 0.2-1.0 [facility] Comment on above: Performed By: #### C MP ####[facility] Njustlhiec0961 [place] [address]Dr. Farhat Leal Calcium [Mass/Vol] 8.9 mg/dL Normal 8.5-10.1 [facility] Comment on above: Performed By: #### C MP ####[facility] Airumbyjqf938[address] [place], [place] [address]Dr. Farhat Leal Chloride [Moles/Vol] 102 mmol/L Normal 98-107 [facility] Comment on above: Performed By: #### C MP ####[facility] Qznqohgvjb70750[address] [place], [place] [address]Dr. Farhat Elvis CO2 [Moles/Vol] 22.9 mmol/L Normal 21.0-32.0 [facility] Comment on above: Performed By: #### C MP ####[facility] Ycttqtxqmy137[address] [place], [place] [address]Dr. Farhat Elvis Creatinine [Mass/Vol] 1.20 mg/dL Normal 0.70-1.30 [facility] Comment on above: Performed By: #### C MP ####[facility] Rlzrhkdpol379[address] [place], [place] [address]Dr. Farhat Elvis EGFR-AF CYMRAES >60 Normal >=60 [facility] Comment on above: Performed By: #### C MP ####[facility] Agmxgcnxvm6390 [place] [phone]. Madelynlorri Elvis EGFR-NON AF CYMRAES 59 mL/min/1.73m2 Critically low >=60 [facility] Comment on above: Performed By: #### C MP ####[facility] Yecescwkdk0564 [place] [phone]. Farhat Leal Globulin (S) [Mass/Vol] 3.1 g/dL Normal [facility] Comment on above: Performed By: #### C MP ####[facility] Uvghzfmosw6441 [place] [phone]. Farhat Leal Glucose [Mass/Vol] 447 mg/dL Critically high 74-106 [facility] [place] Comment on above: Performed By: #### C MP ####[facility] Zbknbmvsnk0439 [place] [phone]. Farhat Leal Potassium [Moles/Vol] 4.5 mmol/L Normal 3.5-5.1 [facility] Comment on above: Performed By: #### C MP ####[facility] Davsjadxba2544 [place] [address]Dr. Farhat Leal Protein [Mass/Vol] 6.0 g/dL Critically low 6.4-8.2 Th [facility] Comment on above: Performed By: #### C MP ####[facility] Alpnnvmpki66[address] [place], [place] [address]Dr. Farhat Leal Sodium [Moles/Vol] 135 mmol/L Critically low 136-145 Th [facility] Comment on above: Performed By: #### C MP ####[facility] Grubxwyacd489[address] [place], [place] [address]Dr. Farhat Leal Urea nitrogen [Mass/Vol] 52.0 mg/dL Critically high 7.0-18.0 [facility] Comment on above: Performed By: #### C MP ####[facility] Sypfycixjt826[address] [place], [place] [address]Dr. Farhat Leal Urea nitrogen/Creatinine [Mass ratio] 43.3 mg/mg Normal [facility] Comment on above: Performed By: #### C MP ####[facility] Uyhujztvay3820 [place] [phone]. Farhat Leal PROTIMEon 05-06-2022 INR Coag (PPP) [Relative time] 2.25 {INR} Normal [facility] Comment on above: Performed By: #### P T ####[facility] Zjeriptieq288[address] [place], [place] [address]Dr. Farhat Leal INR GUIDELINES SEE BELOW Normal [facility] Comment on above: Result Comment: MALINA RED INR: 2.0 - 3.0 CONDITIONS NOT LISTED BELOW 2.5 - 3.5 FOR PROSTHETIC HEART VALVE REPLACEMENT 2.5 - 3.5 RECURRENT THROMBOSIS Performed By: #### P T ####[facility] Qjgnqhlezv[address] [place], [place] [address]Dr. Farhat Leal PT Coag (PPP) [Time] 22.8 s Critically high 9.0-11.6 [facility] Comment on above: Performed By: #### P T ####[facility] Bwurhephrj9[address] [place], [place] [address]Dr. Farhat Leal FK506 (TACROLIMUS) WHOLE BLO ODon 05-04-2022 Tacrolimus (FK506), Blood 10.4 ng/mL Normal 2.0-20.0 [facility] Comment on above: Result Comment: Trou gh (immediately following transplant) 15.0 . Trough (steady state, 2 weeks or more after transplant): 3.0 - 8.0 . Performed by LC-MS/MS technology. Performed By: #### F K506T ####[facility] Iohlrdlytp254[address] [place], [place] [address]Dr. Farhat Leal CBC AUTO DIFFon 05-01-2022 BASO # 0.1 103/ul Normal 0.0-0.1 [facility] Comment on above: Performed By: #### C BC ####[facility] Gfmkolcysq014[address] [place], [place] [address]Dr. Farhat Leal Basophils/100 WBC (Bld) 0.7 % Normal 0.2-2.0 [facility] Comment on above: Performed By: #### C BC ####[facility] Kbbnbipktq008[address] [place], [place] [address]Dr. Farhat Leal EO # 0.2 103/ul Normal 0.0-0.7 [facility] Comment on above: Performed By: #### C BC ####[facility] Glvwkhnagp45340[address] [place], [place] [address]Dr. Farhat Leal Eosinophils/100 WBC (Bld) 3.2 % Normal 0.9-7.0 [facility] Comment on above: Performed By: #### C BC ####[facility] Kjwmpoksfu3003 [place] [address]Dr. Farhat Leal Erythrocyte distribution width (RBC) [Ratio] 16.4 % Critically high 11.0-15.0 [facility] Comment on above: Performed By: #### C BC ####[facility] Jkmyifwnkp789[address] [place], [place] [address]Dr. Farhat Leal Hematocrit (Bld) [Volume fraction] 35.1 % Critically low 42.0-54.0 [facility] Comment on above: Performed By: #### C BC ####[facility] Bnhkasqcqd48450[address] [place], [place] [address]Dr. Farhat Leal Hemoglobin (Bld) [Mass/Vol] 11.6 g/dL Critically low 14.0-18.0 [facility] Comment on above: Performed By: #### C BC ####[facility] Eoylaahcor938[address] [place], [place] [address]Dr. Farhat Leal IG # 0.03 10e3/ul Normal 0.00-0.03 [facility] Comment on above: Performed By: #### C BC ####[facility] Kuyhsuwzaw490[address] [place], [place] [address]Dr. Farhat Leal IG % 0.4 % Normal 0.0-0.5 [facility] Comment on above: Performed By: #### C BC ####[facility] Wtqazjjubq454[address] [place], [place] [address]Dr. Farhat Lela LYMPH # 2.4 103/ul Normal 1.2-3.8 [facility] Comment on above: Performed By: #### C BC ####[facility] Cgzlwzvjqf45[address] [place], [place] [address]Dr. Farhat Leal Lymphocytes/100 WBC (Bld) 35.1 % Normal 20.5-60.0 [facility] Comment on above: Performed By: #### C BC ####[facility] Tlhmvzhuwu600[address] [place], [place] [address]Dr. Farhat Leal MANUAL DIFF REQ NO Normal [facility] Comment on above: Performed By: #### C BC ####[facility] Ccqmwvwvph7722 [place] [phone]. Farhat Elvis MCH (RBC) [Entitic mass] 29.4 pg Normal 25.9-34.0 [facility] Comment on above: Performed By: #### C BC ####[facility] Noewvkrgth6124 [place] [phone]. Farhat Elvis MCHC (RBC) [Mass/Vol] 33.0 g/dL Normal 29.9-35.2 [facility] Comment on above: Performed By: #### C BC ####[facility] Dinlvapwvl0502 [place] [phone]. Madelynlorri Leal MCV (RBC) [Entitic vol] 88.9 fL Normal 80.0-94.0 [facility] Comment on above: Performed By: #### C BC ####[facility] Zkacxzjwzr[address] [place], [place] [address]Dr. Farhat Leal MONO # 0.7 103/ul Normal 0.3-0.8 [facility] Comment on above: Performed By: #### C BC ####[facility] Afazyquahh870[address] [place], [place] [address]Dr. Farhat Leal Monocytes/100 WBC (Bld) 9.6 % Normal 1.7-12.0 [facility] Comment on above: Performed By: #### C BC ####[facility] Gwqhswnemu[address] [place], [place] [address]Dr. Farhat Leal NEUT # 3.5 103/ul Normal 1.4-6.5 [facility] Comment on above: Performed By: #### C BC ####[facility] Tmrnoyemje[address] [place], [place] [address]Dr. Farhat Leal Neutrophils/100 WBC (Bld) 51.0 % Normal 43.0-75.0 [facility] Comment on above: Performed By: #### C BC ####[facility] Xrpvuyxfpu8[address] [place], [place] [address]Dr. Farhat Leal Platelet mean volume (Bld) [Entitic vol] 10.3 fL Normal 9.5-13.5 [facility] Comment on above: Performed By: #### C BC ####[facility] Ectgahegne6789 [place] [phone]. Farhat Elvis PLT 184 103/ul Normal 150-450 [facility] Comment on above: Performed By: #### C BC ####[facility] Lawtaflcnf5431 [place] [phone]. Madelynlorri Leal RBC 3.95 106/ul Critically low 4.70-6.10 [facility] Comment on above: Performed By: #### C BC ####[facility] Hrtllqmzkg0719 [place] [phone]. Madelynlorri Elvis WBC 7.0 103/ul Normal 4.0-11.0 [facility] Comment on above: Performed By: #### C BC ####[facility] Xgxwjchqyh5989 [place] [address]Dr. Farhat Leal PROF 14(COMP METB)on 023 Albumin [Mass/Vol] 2.6 g/dL Critically low 3.4-5.[address] [facility] Comment on above: Performed By: #### C MP ####[facility] Tmenkzgzxh[address] [place], [place] [address]Dr. Farhat Leal Albumin/Globulin [Mass ratio] 0.9 {ratio} Normal [facility] Comment on above: Performed By: #### C MP ####[facility] Vhgjdlexbm7730 [place] [address]Dr. Farhat Leal ALP [Catalytic activity/Vol] 53 U/L Normal 46-116 [facility] Comment on above: Performed By: #### C MP ####[facility] Yareevytif4512 [place] [address]Dr. Farhat Leal ALT [Catalytic activity/Vol] 17 U/L Normal 16-63 [facility] Comment on above: Performed By: #### C MP ####[facility] Hodatupdhp7040 [place] [address]Dr. Farhat Leal Anion gap [Moles/Vol] 10.0 mmol/L Normal [facility] Comment on above: Performed By: #### C MP ####[facility] Dzsyvdjbze0028 [place] [phone]. Farhat Leal AST [Catalytic activity/Vol] 19 U/L Normal 15-37 [facility] Comment on above: Performed By: #### C MP ####[facility] Lqptozsuww7635 [place] [phone]. Farhat Leal Bilirubin [Mass/Vol] 0.5 mg/dL Normal 0.2-1.0 [facility] Comment on above: Performed By: #### C MP ####[facility] Plcokuggyi8[address] [place], [place] [address]Dr. Farhat Leal Calcium [Mass/Vol] 8.4 mg/dL Critically low 8.5-10.1 Th e [facility] Comment on above: Performed By: #### C MP ####[facility] Kzuovhtvhg[address] [place], [place] [address]Dr. Farhat Leal Chloride [Moles/Vol] 108 mmol/L Critically high 98-107 [facility] Comment on above: Performed By: #### C MP ####[facility] Ngsedyloek[address] [place], [place] [address]Dr. Farhat Leal CO2 [Moles/Vol] 26.9 mmol/L Normal 21.0-32.0 [facility] Comment on above: Performed By: #### C MP ####[facility] Drdvbnasvq8[address] [place], [place] [address]Dr. Farhat Leal Creatinine [Mass/Vol] 1.20 mg/dL Normal 0.70-1.30 [facility] Comment on above: Performed By: #### C MP ####[facility] Uikgvwffcs1361 [place] [phone]. Farhat Elvis EGFR-AF CYMRAES >60 Normal >=60 [facility] Comment on above: Performed By: #### C MP ####[facility] Buwjrulnny[address] [place], [place] [address]Dr. Farhat Elvis EGFR-NON AF CYMRAES 59 mL/min/1.73m2 Critically low >=60 [facility] Comment on above: Performed By: #### C MP ####[facility] Bymukpaahb6942 [place] [phone]. Farhat Leal Globulin (S) [Mass/Vol] 3.0 g/dL Normal [facility] Comment on above: Performed By: #### C MP ####[facility] Mfungdfkif0768 [place] [phone]. Farhat Leal Glucose [Mass/Vol] 213 mg/dL Critically high 74-106 [facility] Comment on above: Performed By: #### C MP ####[facility] Gtnhclmmgi6134 [place] [phone]. Farhat Leal Potassium [Moles/Vol] 3.9 mmol/L Normal 3.5-5.1 [facility] Comment on above: Performed By: #### C MP ####[facility] Ktysxqoewo7786 [place] [address]Dr. Farhat Leal Protein [Mass/Vol] 5.6 g/dL Critically low 6.4-8.2 Th [facility] Comment on above: Performed By: #### C MP ####[facility] Vxsexwzehh0597 [place] [address]Dr. Farhat Leal Sodium [Moles/Vol] 141 mmol/L Normal 136-145 [facility] Comment on above: Performed By: #### C MP ####[facility] Nbmyhdlsbd0112 [place] [phone]. Farhat Leal Urea nitrogen [Mass/Vol] 61.0 mg/dL Critically high 7.0-18.0 [facility] Comment on above: Performed By: #### C MP ####[facility] Kblgvfoanb2263 [place] [address]Dr. Farhat Leal Urea nitrogen/Creatinine [Mass ratio] 50.8 mg/mg Normal [facility] Comment on above: Performed By: #### C MP ####[facility] Gkspntrmbc[address] [place], [place] [address]Dr. Farhat Leal FK506 (TACROLIMUS) WHOLE BLO ODon 04-27-2022 Tacrolimus (FK506), Blood 16.5 ng/mL Normal 2.0-20.0 [facility] Comment on above: Result Comment: Trou gh (immediately following transplant) 15.0 . Trough (steady state, 2 weeks or more after transplant): 3.0 - 8.0 . Performed by LC-MS/MS technology. Performed By: #### F K506T ####[facility] Ccwoqgpguf4[address] [place], [place] [address]Dr. Farhat Leal CBC AUTO DIFFon 04-24-2022 BASO # 0.0 103/ul Normal 0.0-0.1 [facility] Comment on above: Performed By: #### C BC ####[facility] Zhgcrgmdgk[address] [place], [place] [address]Dr. Farhat Leal Basophils/100 WBC (Bld) 0.5 % Normal 0.2-2.0 [facility] Comment on above: Performed By: #### C BC ####[facility] Helwnzypfj[address] [place], [place] [address]Dr. Farhat Leal EO # 0.2 103/ul Normal 0.0-0.7 [facility] Comment on above: Performed By: #### C BC ####[facility] Ygmfibrrek[address] [place], [place] [address]Dr. Farhat Leal Eosinophils/100 WBC (Bld) 3.1 % Normal 0.9-7.0 [facility] Comment on above: Performed By: #### C BC ####[facility] Wmfdxmmgcf[address] [place], [place] [address]Dr. Farhat Leal Erythrocyte distribution width (RBC) [Ratio] 16.3 % Critically high 11.0-15.0 [facility] Comment on above: Performed By: #### C BC ####[facility] Refswynzpi[address] [place], [place] [address]Dr. Farhat Leal Hematocrit (Bld) [Volume fraction] 34.0 % Critically low 42.0-54.0 [facility] Comment on above: Performed By: #### C BC ####[facility] Wuwgyzxdcs7[address] [place], [place] [address]Dr. Farhat Leal Hemoglobin (Bld) [Mass/Vol] 11.6 g/dL Critically low 14.0-18.0 [facility] Comment on above: Performed By: #### C BC ####[facility] Sumgqavees9696 [place] [phone]. Madelynlorri Elvis IG # 0.02 10e3/ul Normal 0.00-0.03 [facility] Comment on above: Performed By: #### C BC ####[facility] Uhyqkfmnqa9877 [place] [phone]. Farhat Leal IG % 0.4 % Normal 0.0-0.5 [facility] Comment on above: Performed By: #### C BC ####[facility] Hxqxjuowuz7695 [place] [address]Dr. Farhat Leal LYMPH # 2.2 103/ul Normal 1.2-3.8 [facility] Comment on above: Performed By: #### C BC ####[facility] Xeyxvzvxzr2039 [place] [address]Dr. Farhat Leal Lymphocytes/100 WBC (Bld) 38.8 % Normal 20.5-60.0 [facility] Comment on above: Performed By: #### C BC ####[facility] Rmrgzjuuwv8083 [place] [address]DrSkylar Leal MANUAL DIFF REQ NO Normal [facility] Comment on above: Performed By: #### C BC ####[facility] Izikbgfyke1612 [place] [phone]. Farhat Leal MCH (RBC) [Entitic mass] 30.1 pg Normal 25.9-34.0 [facility] Comment on above: Performed By: #### C BC ####[facility] Ihfcchntbs8562 [place] [phone]. Madelynlorri Leal MCHC (RBC) [Mass/Vol] 34.1 g/dL Normal 29.9-35.2 [facility] Comment on above: Performed By: #### C BC ####[facility] Oysrfftemg0332 [place] [phone]. Farhat Leal MCV (RBC) [Entitic vol] 88.1 fL Normal 80.0-94.0 [facility] Comment on above: Performed By: #### C BC ####[facility] Ujcvxnysvf5769 [place] [phone]. Farhat Leal MONO # 0.6 103/ul Normal 0.3-0.8 [facility] Comment on above: Performed By: #### C BC ####[facility] Uymtbzmpms0503 [place] [phone]. Farhat Leal Monocytes/100 WBC (Bld) 10.8 % Normal 1.7-12.0 [facility] Comment on above: Performed By: #### C BC ####[facility] Zwhtnyptnj5334 [place] [phone]. Farhat Leal NEUT # 2.6 103/ul Normal 1.4-6.5 [facility] Comment on above: Performed By: #### C BC ####[facility] Etnnozbmql4283 [place] [phone]. Farhat Leal Neutrophils/100 WBC (Bld) 46.4 % Normal 43.0-75.0 [facility] Comment on above: Performed By: #### C BC ####[facility] Chbfuejdyy8010 [place] [phone]. Farhat Leal Platelet mean volume (Bld) [Entitic vol] 10.9 fL Normal 9.5-13.5 [facility] Comment on above: Performed By: #### C BC ####[facility] Xdmxqzorye3138 [place] [phone]. Farhat Leal PLT 159 103/ul Normal 150-450 [facility] Comment on above: Performed By: #### C BC ####[facility] Eddjibbfsr0814 [place] [phone]. Farhat Leal RBC 3.86 106/ul Critically low 4.70-6.10 [facility] Comment on above: Performed By: #### C BC ####[facility] Toglstdtam5749 [place] [phone]. Farhat Leal WBC 5.6 103/ul Normal 4.0-11.0 [facility] Comment on above: Performed By: #### C BC ####[facility] Fpvzxrtsxw1061 [place] [address]Dr. Farhat Leal PROTIMEon 04-24-2022 INR Coag (PPP) [Relative time] 3.23 {INR} Normal [facility] Comment on above: Performed By: #### P T ####[facility] Zjqmmbapsx4231 [place] [address]Dr. Farhat Leal INR GUIDELINES SEE BELOW Normal [facility] Comment on above: Result Comment: MALINA RED INR: 2.0 - 3.0 CONDITIONS NOT LISTED BELOW 2.5 - 3.5 FOR PROSTHETIC HEART VALVE REPLACEMENT 2.5 - 3.5 RECURRENT THROMBOSIS Performed By: #### P T ####[facility] Ncolzmlrph[address] [place], [place] [address]Dr. Farhat Leal PT Coag (PPP) [Time] 32.0 s Critically high 9.0-11.6 [facility] Comment on above: Performed By: #### P T ####[facility] Osdqznteje[address] [place], [place] [address]Dr. Farhat Leal FK506 (TACROLIMUS) WHOLE BLO ODon 04-20-2022 Tacrolimus (FK506), Blood 13.9 ng/mL Normal 2.0-20.0 [facility] Comment on above: Result Comment: Trou gh (immediately following transplant) 15.0 . Trough (steady state, 2 weeks or more after transplant): 3.0 - 8.0 . Performed by LC-MS/MS technology. Performed By: #### F K506T ####[facility] Dzggtqkogp[address] [place], [place] [address]Dr. Farhat Leal CBC AUTO DIFFon 04-17-2022 BASO # 0.0 103/ul Normal 0.0-0.1 [facility] Comment on above: Performed By: #### C BC ####[facility] Fopgyzxldc26[address] [place], [place] [address]DrSkylar Leal Basophils/100 WBC (Bld) 0.4 % Normal 0.2-2.0 [facility] Comment on above: Performed By: #### C BC ####[facility] Kjitxgxdtz[address] [place], [place] [address]Dr. Farhat Leal EO # 0.2 103/ul Normal 0.0-0.7 [facility] Comment on above: Performed By: #### C BC ####[facility] Vxdvxwwmjt4632 [place] [address]Dr. Farhat Leal Eosinophils/100 WBC (Bld) 2.8 % Normal 0.9-7.0 [facility] Comment on above: Performed By: #### C BC ####[facility] Ythyufmbtf312[address] [place], [place] [address]Dr. Farhat Leal Erythrocyte distribution width (RBC) [Ratio] 16.1 % Critically high 11.0-15.0 [facility] Comment on above: Performed By: #### C BC ####[facility] Ujnmzojidh3562 [place] [address]Dr. Farhat Leal Hematocrit (Bld) [Volume fraction] 35.7 % Critically low 42.0-54.0 [facility] Comment on above: Performed By: #### C BC ####[facility] Mmiuagzygb[address] [place], [place] [address]Dr. Farhat Leal Hemoglobin (Bld) [Mass/Vol] 12.2 g/dL Critically low 14.0-18.0 [facility] Comment on above: Performed By: #### C BC ####[facility] Jdvhhhohbg[address] [place], [place] [address]Dr. Farhat Leal IG # 0.03 10e3/ul Normal 0.00-0.03 [facility] Comment on above: Performed By: #### C BC ####[facility] Mfcelzwpas135[address] [place], [place] [address]Dr. Farhat Leal IG % 0.4 % Normal 0.0-0.5 [facility] Comment on above: Performed By: #### C BC ####[facility] Xillkupmkz203[address] [place], [place] [address]Dr. Farhat Leal LYMPH # 2.4 103/ul Normal 1.2-3.8 [facility] Comment on above: Performed By: #### C BC ####[facility] Qozaqrnwsg8762 [place] [phone]. Farhat Elvis Lymphocytes/100 WBC (Bld) 36.1 % Normal 20.5-60.0 [facility] Comment on above: Performed By: #### C BC ####[facility] Drvunxgsks4580 [place] [address]Dr. Madelynlorri Leal MANUAL DIFF REQ NO Normal [facility] Comment on above: Performed By: #### C BC ####[facility] Hcxkeiklcx6112 [place] [address]Dr. Farhat Elvis MCH (RBC) [Entitic mass] 30.3 pg Normal 25.9-34.0 [facility] Comment on above: Performed By: #### C BC ####[facility] Judmijpxff9[address] [place], [place] [address]Dr. Madelynlorri Leal MCHC (RBC) [Mass/Vol] 34.2 g/dL Normal 29.9-35.2 [facility] Comment on above: Performed By: #### C BC ####[facility] Ykkynpcdqb[address] [place], [place] [address]Dr. Madelynlorri Leal MCV (RBC) [Entitic vol] 88.6 fL Normal 80.0-94.0 [facility] Comment on above: Performed By: #### C BC ####[facility] Yzjqcwmarm203[address] [place], [place] [address]Dr. Farhat Leal MONO # 0.7 103/ul Normal 0.3-0.8 [facility] Comment on above: Performed By: #### C BC ####[facility] Xnwohvbrgl247[address] [place], [place] [address]Dr. Madelynlorri Leal Monocytes/100 WBC (Bld) 10.1 % Normal 1.7-12.0 [facility] Comment on above: Performed By: #### C BC ####[facility] Nouwnpskij[address] [place], [place] [address]Dr. Farhat Leal NEUT # 3.4 103/ul Normal 1.4-6.5 [facility] Comment on above: Performed By: #### C BC ####[facility] Evggxfszbx1690 [place] [address]Dr. Farhat Leal Neutrophils/100 WBC (Bld) 50.2 % Normal 43.0-75.0 [facility] Comment on above: Performed By: #### C BC ####[facility] Vyapejktuf7749 [place] [address]Dr. Farhat Leal Platelet mean volume (Bld) [Entitic vol] 11.8 fL Normal 9.5-13.5 [facility] Comment on above: Performed By: #### C BC ####[facility] Yhcqtpjbtt4604 [place] [address]Dr. Farhat Leal PLT 193 103/ul Normal 150-450 [facility] Comment on above: Performed By: #### C BC ####[facility] Jipetgzpwl64[address] [place], [place] [address]Dr. Farhat Leal RBC 4.03 106/ul Critically low 4.70-6.10 [facility] Comment on above: Performed By: #### C BC ####[facility] Tbccpiwuqv70[address] [place], [place] [address]Dr. Farhat Leal WBC 6.8 103/ul Normal 4.0-11.0 [facility] Comment on above: Performed By: #### C BC ####[facility] Nltvbbbddx6[address] [place], [place] [address]Dr. Farhat Leal PROF 14(COMP METB)on 023 Albumin [Mass/Vol] 2.9 g/dL Critically low 3.4-5.[address] [facility] Comment on above: Performed By: #### C MP ####[facility] Oljmvbmdrf9521 [place] [address]Dr. Farhat Leal Albumin/Globulin [Mass ratio] 0.9 {ratio} Normal [facility] Comment on above: Performed By: #### C MP ####[facility] Omtzutdpxw[address] [place], [place] [address]Dr. Farhat Leal ALP [Catalytic activity/Vol] 67 U/L Normal 46-116 [facility] Comment on above: Performed By: #### C MP ####[facility] Ncqgdsfoui9838 [place] [address]Dr. Farhat Leal ALT [Catalytic activity/Vol] 15 U/L Critically low 16-63 [facility] Comment on above: Performed By: #### C MP ####[facility] Rwclygnadn4302 [place] [address]Dr. Farhat Leal Anion gap [Moles/Vol] 10.8 mmol/L Normal Th e [facility] Comment on above: Performed By: #### C MP ####[facility] Nknkqwbmlk[address] [place], [place] [address]Dr. Farhat Leal AST [Catalytic activity/Vol] 23 U/L Normal 15-37 [facility] Comment on above: Performed By: #### C MP ####[facility] Roipjyllcf[address] [place], [place] [address]Dr. Farhat Leal Bilirubin [Mass/Vol] 0.6 mg/dL Normal 0.2-1.0 [facility] Comment on above: Performed By: #### C MP ####[facility] Hxqizssxzd265[address] [place], [place] [address]Dr. Farhat Leal Calcium [Mass/Vol] 8.7 mg/dL Normal 8.5-10.1 [facility] Comment on above: Performed By: #### C MP ####[facility] Mlaotwfniw[address] [place], [place] [address]Dr. Farhat Leal Chloride [Moles/Vol] 105 mmol/L Normal 98-107 [facility] Comment on above: Performed By: #### C MP ####[facility] Prtcftwlaj014[address] [place], [place] [address]Dr. Farhat Leal CO2 [Moles/Vol] 29.5 mmol/L Normal 21.0-32.0 [facility] Comment on above: Performed By: #### C MP ####[facility] Htoivfuwrw7816[address] [place], [place] [address]Dr. Farhat Leal Creatinine [Mass/Vol] 1.37 mg/dL Critically high 0.70-1.30 [facility] Comment on above: Performed By: #### C MP ####[facility] [address]zshbxa[address] [place], [place] [address]Dr. Farhat Elvis EGFR-AF CYMRAES >60 Normal >=60 [facility] Comment on above: Performed By: #### C MP ####[facility] Giioqwpvuu3340 [place] [address]Dr. Farhat Elvis EGFR-NON AF CYMRAES 50 mL/min/1.73m2 Critically low >=60 [facility] Comment on above: Performed By: #### C MP ####[facility] Abrfhgozdj4812 [place] [address]Dr. Farhat Elvis Globulin (S) [Mass/Vol] 3.1 g/dL Normal [facility] Comment on above: Performed By: #### C MP ####[facility] Hetydjrcmz[address] [place], [place] [address]Dr. Madelynlorri Elvis Glucose [Mass/Vol] 203 mg/dL Critically high 74-106 [facility] Comment on above: Performed By: #### C MP ####[facility] Jskbezjszq8261 [place] [address]Dr. Farhat Leal Potassium [Moles/Vol] 4.3 mmol/L Normal 3.5-5.1 [facility] Comment on above: Performed By: #### C MP ####[facility] Fmcwhsrdvs[address] [place], [place] [address]Dr. Madelynlorri Elvis Protein [Mass/Vol] 6.0 g/dL Critically low 6.4-8.2 Th [facility] Comment on above: Performed By: #### C MP ####[facility] Tpqpoqfgop8087 [place] [address]Dr. Farhat Elvis Sodium [Moles/Vol] 141 mmol/L Normal 136-145 [facility] Comment on above: Performed By: #### C MP ####[facility] Kgqojacvom8[address] [place], [place] [address]Dr. Farhat Leal Urea nitrogen [Mass/Vol] 65.0 mg/dL Critically high 7.0-18.0 [facility] Comment on above: Performed By: #### C MP ####[facility] Ndqrjwvwfu[address] [place], [place] [address]Dr. Farhat Leal Urea nitrogen/Creatinine [Mass ratio] 47.4 mg/mg Normal [facility] Comment on above: Performed By: #### C MP ####[facility] Mtwcwnfood0398 [place] [phone]. Farhat Leal PROTIMEon 04-15-2022 INR Coag (PPP) [Relative time] 3.88 {INR} Normal [facility] Comment on above: Performed By: #### P T ####[facility] Qcmnqbehpw0756 [place] [phone] Farhat Leal INR GUIDELINES SEE BELOW Normal [facility] Comment on above: Result Comment: MALINA RED INR: 2.0 - 3.0 CONDITIONS NOT LISTED BELOW 2.5 - 3.5 FOR PROSTHETIC HEART VALVE REPLACEMENT 2.5 - 3.5 RECURRENT THROMBOSIS Performed By: #### P T ####[facility] Vngyhjemsr1034 [place] [phone]. Farhat Leal PT Coag (PPP) [Time] 38.1 s Critically high 9.0-11.6 [facility] Comment on above: Performed By: #### P T ####[facility] Tydxdndrbu1596 [place] [phone]. Farhat Leal Glucose Glucometer (dC) [M ass/Vol]Ordered By: Sadia Aguilar on 04-14-2022 Glucose [Mass/Vol] 162 mg/dL [facility] Comment on above: Random Glucose Refer ence Range is dependent on time and content of last meal. Glucose of more than 200 mg/dL in a nonstressed, ambulatory subject supports the diagnosis of Diabetes Mellitus. Glucose Poct Glucometerson 0 04-14-2022 Commemt1 Glu2: Cleaned Meter Normal [facility] Comment on above: Result Comment: PERF ORMED BY: [facility] [address] [place] [address] PATHOLOGIST [employer] JOSE F ELLIOTT M.D. Performed By: #### G LULS #### Point of Care testing , Glucose [Mass/Vol] 162 mg/dL Normal [facility] Comment on above: Result Comment: [facility] Glucose Reference Range is dependent on time and content of last meal. Glucose of more than 200 mg/dL in a nonstressed, ambulatory subject supports the diagnosis of Diabetes Mellitus. Performed By: #### G MADY #### Point of Care testing , No Panel InformationOrdered By: Sadia Aguilar on 04-14-2022 Bedside Glucose Comment Glu2: cleaned meter MAGNESIUMon 04-13-2022 Magnesium [Mass/Vol] 1.7 mg/dL Critically low 1.8-2.4 [facility] Comment on above: Performed By: #### M HENRI Manzo ####[facility] Gfrpgqwnqa1818 [place] [address]DrSkylar Leal PHOSPHORUSon 04-13-2022 Phosphate [Mass/Vol] 4.8 mg/dL Critically high 2.6-4.7 [facility] Comment on above: Performed By: #### HENRI Winters ####[facility] Okgzojnkjm[address] [place], [place] [address]DrSkylar Leal PROTIMEon 04-13-2022 INR Coag (PPP) [Relative time] 3.16 {INR} Normal [facility] Comment on above: Performed By: #### P T ####[facility] [address] [place], [place] [address]DrSkylar Leal INR GUIDELINES SEE BELOW Normal [facility] Comment on above: Result Comment: MALINA RED INR: 2.0 - 3.0 CONDITIONS NOT LISTED BELOW 2.5 - 3.5 FOR PROSTHETIC HEART VALVE REPLACEMENT 2.5 - 3.5 RECURRENT THROMBOSIS Performed By: #### P T ####[facility] [address] [place] [address]DrSkylar Leal PT Coag (PPP) [Time] 31.4 s Critically high 9.0-11.6 [facility] Comment on above: Performed By: #### P T ####[facility] [address] [place], [place] [address]DrSkylar Leal MAGNESIUMon 03-11-2022 Magnesium [Mass/Vol] 1.6 mg/dL Critically low 1.8-2.4 [facility] Comment on above: Performed By: #### M G, PHOS ####[facility] [address] [place] [address] [place], [place] [address]Hw. Farhat Lael PHOSPHORUSon 03-11-2022 Phosphate [Mass/Vol] 5.3 mg/dL Critically high 2.6-4.7 [facility] Comment on above: Performed By: #### M G, PHOS ####[facility] [address] [place] [address] [place], [place] [address]Kp. Farhat Leal CNOVon 02-26-2022 CNOV Office Visit (VASSMN ) ALEX ALMONTE Kate ([id number]) 1945 M TRN Date Time Provider Department 02/26/22 3:00 PM HINA PETERSON During your visit today, we recorded the following information about you: Temperature Pulse Blood pressure 96.6 degrees 75/minute 88/75 Hina Peterson MD, MD 02/26/2022 4:31 PM [facility] DEPARTMENT OF VASCULAR SURGERY OUTPATIENT VISIT DATE [...] his postop visit. He has been in longterm since then and has been recovering from his acute on chronic congestive heart failure. His wound has largely been healing without any issues and the maxwell and sutures were removed at the nursing facility. He comes here with a lateral wound eschar. He denies any fevers, chills, or any drainage. He is on anticoagulation. 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 Magic Cup Burke with lunch aspirin, enteric coated (ASPIRIN, ENTERIC COATED) 81 mg EC tablet Take 1 tablet by (more content not included)... Normal [facility] PROTIMEon 02-25-2022 INR Coag (PPP) [Relative time] 1.31 {INR} Normal [facility] Comment on above: Performed By: #### P T ####[facility] [address] [place] [address]DrSkylar Leal INR GUIDELINES SEE BELOW Normal [facility] Comment on above: Result Comment: MALINA RED INR: 2.0 - 3.0 CONDITIONS NOT LISTED BELOW 2.5 - 3.5 FOR PROSTHETIC HEART VALVE REPLACEMENT 2.5 - 3.5 RECURRENT THROMBOSIS Performed By: #### P T ####[facility] [address] [place], [place] [address]OxSkylar Farhat Leal PT Coag (PPP) [Time] 13.7 s Critically high 9.0-11.6 [facility] Comment on above: Performed By: #### P T ####[facility] [address] [place] [address] [place], [place] [address]WcSkylar Farhat Elvis Hassan 02-19-2022 CNPN Telephone (TXCTGL) ALEX ALMONTE ([id number]) 1945 M TRN Date Time Provider Department [...] by mouth daily with lunch. 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 DIABETES UNCOMPL ADULT-UNCONTRLLED [[id number]] 02/24/2002 KIDNEY TRANSPLANT STATUS [Z94.0] 09/07/2003 PROPHYLACTIC IMMUNOTHERAPY [Z29.8] 07/30/2006 RETIREMENT STEROIDS [[id number]] 07/30/2006 VITAMIN D DEFICIENCY NOS [E55.9] 09/07/2008 [...] diabetes mellitus with diabetic peripher*11/29/2021 Atherosclerosis of big sandy artery of extremity w*11/29/2021 Malnutrition of moderate degree (HCC) [E44.0] 12/01/2021 Dermatitis associated with moisture [L30.8] 12/04/2021 Encounter Status:Closed by AUGUSTA MEDRANO on 02/19/22 [facility] Sonya 02-18-2022 CNPN Telephone (PODCCP) SUZYMINEJESÚS Love ([id number]) 1945 M TRN Date Time Provider Department 02/18/22 DEVON MOREIRA PODREAL During your visit today, we recorded the following information about you: Yumiko Denise 02/18/2022 3:16 PM Signed Reason for call: Mr. Almonte would like to request a sooner appointment with Dr. Peterson than 04/13/2022. Contact Name (if not the patient) Alex's nurse Home and cell number(Ask for Alex's nurse) [phone] Diagnosis 4 mo f/u wound check Best [...] by mouth daily with lunch. 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 Normal [facility] CNOVon 02-05-2022 CNOV Office Visit (TXCTGL ) ALEX ALMONTE ([id number]) 1945 M TRN Date Time Provider Department 02/05/22 8:20 AM KIDNEY TX[facility]INIC TXCTGL During your visit today, we recorded the following information about you: Temperature Pulse Blood pressure 96.7 degrees 79/minute 72/42 Asia Pike MD 02/05/2022 9:38 AM Signed [facility] Roberta Transplant Follow up Portions of this note [...] and snacks patient declined. Indra scale at [facility]: 166.2 lbs per patient. Bed sore on coccyx causing discomfort. Being changed regularly at [facility]- reported to be smaller around but still as deep. Patient not very up to date with medications. Patient brought paperwork from [facility] with all medications being received. Patient unsure if they have been drawing labs regularly. Last Tac from 01/19: 12.9 and K 5.9. In need of current labs. Lab orders will be sent with patient and follows as below: Kidney and Pancreas Transplant Standing Lab Orders [address] [place], [place] [address] February 05, 2022 Alex Almonte 1945 [id number] STANDARD TESTING: Diagnosis Codes: Z94.0 Kidney Transplant [...] AT YOUR LABORATORY FACILITY AND FAX TO [phone]. PLEASE CALL [phone]. Provider: Dr. Pike Current Outpatient Medications Medication [...] Take 237 (more content not included)... Normal [facility] PROTEIN CREATININE RATIOon 1 04-08-2021 Protein/Creatinine (U) [Mass ratio] 0.10 mg/mg <0.15 mg/mg [facility] PROTIMEon 02-05-2022 INR Coag (PPP) [Relative time] 2.90 {INR} Normal [facility] Comment on above: Performed By: #### P T ####[facility] [address] [place] [address]DrSkylar Leal INR GUIDELINES SEE BELOW Normal [facility] Comment on above: Result Comment: MALINA RED INR: 2.0 - 3.0 CONDITIONS NOT LISTED BELOW 2.5 - 3.5 FOR PROSTHETIC HEART VALVE REPLACEMENT 2.5 - 3.5 RECURRENT THROMBOSIS Performed By: #### P T ####[facility] [address] [place] [address]Dr. Farhat Leal PT Coag (PPP) [Time] 29.2 s Critically high 9.0-11.6 [facility] Comment on above: Performed By: #### P T ####[facility] [address] [place], [place] [address]DjSkylar Leal Prot/Creat Uron 02-05-2022 Protein/Creatinine (U) [Mass ratio] 0.10 mg/mg Normal <0.15 [facility] Comment on above: Order Comment: Speci men Type: URINE SPECIMENOrdering Facility: [facility] Address: [address] [place] [address] Result Comment: Adul t Proteinuria Categories: <0.15 mg/mg is considered normal to mildly increased 0.15 - 0.50 mg/mg is considered moderately increased >0.50 mg/mg is considered severely increased KDIGO. (2013). KDIGO 2012 Clinical Practice Guideline for the Evaluation and Management of Chronic Kidney Disease. Official Journal of the International Society of Nephrology, 3(1), 1-150. Performed By: #### 2 890-2 ####[facility] LABIA [id number] [place] [address] [place] Protein/Creatinine (U) [Mass ratio]on 02-05-2022 Creatinine (U) [Mass/Vol] 86.9 mg/dL 20.0 - 300.0 mg/dL [facility] Protein (U) [Mass/Vol] 9 mg/dL 0 - 20 mg/dL [facility] Creatinine (U) [Mass/Vol] 86.9 mg/dL Normal 20.0-300.0 [facility] Comment on above: Order Comment: Speci men Type: URINE SPECIMENOrdering Facility: [facility] Address: [address] [id number] Performed By: #### 2 890-2 ####[facility] [id number] [place] [address] [place] Protein (U) [Mass/Vol] 9 mg/dL Normal 0-20 [facility] Comment on above: Order Comment: Speci men Type: URINE SPECIMENOrdering Facility: [facility] Address: [address] Performed By: #### 2 890-2 ####[facility] LABCLIA [id number] [place] [address] [place] URINALYSIS, DIPSTICK ONLYon 02-05-2022 Bilirubin Ql (U) Negative Normal Negative [facility] Comment on above: Order Comment: Speci men Type: URINE SPECIMEN Ordering Facility: [facility] Address: [address] [place] [address] Performed By: #### U A #### [facility] CLIA [id number] [address] [place] [address] [place] Clarity (Unsp spec) Clear Normal Clear [facility] Comment on above: Order Comment: Speci men Type: URINE SPECIMEN Ordering Facility: [facility] Address: [address] [place] [address] Performed By: #### U A #### [facility] CLIA [id number] [address] [place] [address] [place] Color (U) Yellow Normal Yellow [facility] Comment on above: Order Comment: Speci men Type: URINE SPECIMEN Ordering Facility: [facility] Address: [address] [place] [address] Performed By: #### U A #### [facility] CLIA [id number] [address] [place] [address] [place] Glucose Test strip (U) [Mass/Vol] 3+ Abnormal Trace, Negative [facility] Comment on above: Order Comment: Speci men Type: URINE SPECIMEN Ordering Facility: [facility] Address: [address] [place], [place] [id number] Performed By: #### U A #### [facility] CLIA [id number] [address] [place] [address] [place] Hemoglobin Ql (U) Negative Normal Negative, Trace [facility] Comment on above: Order Comment: Speci men Type: URINE SPECIMEN Ordering Facility: [facility] Address: [address] [place] [place] [address] Performed By: #### U A #### [facility] CLIA [id number] [address] [place] [address] [place] Ketones Ql (U) Trace Normal Negative, Trace [facility] Comment on above: Order Comment: Speci men Type: URINE SPECIMEN Ordering Facility: [facility] Address: [address] [place] [place] [address] Performed By: #### U A #### [facility] CLIA [id number] [address] [place] [address] [place] Leukocyte esterase Test strip Ql (U) Negative Normal Negative, 25 Loraine/mL [facility] Comment on above: Order Comment: Speci men Type: URINE SPECIMEN Ordering Facility: [facility] Address: [address] [place] [address] Performed By: #### U A #### [facility] CLIA [id number] [address] [place] [address] [place] Nitrite Ql (U) Negative Normal Negative [facility] Comment on above: Order Comment: Speci men Type: URINE SPECIMEN Ordering Facility: [facility] Address: [address] [place] [address] Performed By: #### U A #### [facility] CLIA [id number] [address] [place] [address] [place] pH (U) 5.5 [pH] Normal 5.0-8.0 [facility] Comment on above: Order Comment: Speci men Type: URINE SPECIMEN Ordering Facility: [facility] Address: [address] [place] [address] Performed By: #### U A #### [facility] CLIA [id number] [address] [place] [address] [place] Protein (U) [Mass/Vol] Negative Normal Trace , Negative [facility] Comment on above: Order Comment: Speci men Type: URINE SPECIMEN Ordering Facility: [facility] Address: [address] [place] [address] Performed By: #### U A #### [facility] CLIA [id number] [facility] [address] [place] Specific gravity (U) [Rel density] 1.014 Normal 1.005-1.030 [facility] Comment on above: Order Comment: Speci men Type: URINE SPECIMEN Ordering Facility: [facility] Address: [address] [place] [address] Performed By: #### U A #### [facility] CLIA [id number] [address] [place] [address] [place] Urobilinogen Ql (U) 1+ Abnormal Negative [facility] Comment on above: Order Comment: Speci men Type: URINE SPECIMEN Ordering Facility: [facility] Address: [address] [place] [address] Performed By: #### U A #### [facility] CLIA [id number] [address] [place] [address] [place] Bilirubin Ql (U) Negative Negative [facility] Clarity (Unsp spec) Clear Clear [facility] Color (U) Yellow Yellow [facility] Glucose Test strip (U) [Mass/Vol] 3+ Abnormal Trace, Negative [facility] Hemoglobin Ql (U) Negative Negative, Trace [facility] Ketones Ql (U) Trace Negative, Trace [facility] Leukocyte esterase Test strip Ql (U) Negative Negative, 25 Loraine/mL [facility] Nitrite Ql (U) Negative Negative [facility] pH (U) 5.5 [pH] 5.0 - 8.0 [facility] Protein (U) [Mass/Vol] Negative Trace , Negative [facility] Specific gravity (U) [Rel density] 1.014 1.005 - 1.030 [facility] Urobilinogen Ql (U) 1+ Abnormal Negative [facility] FK506 (TACROLIMUS) WHOLE BLO ODon 12-15-2022 Tacrolimus (FK506), Blood 11.1 ng/mL Normal 2.0-20.0 [facility] Comment on above: Result Comment: Trou gh (immediately following transplant) 15.0 . Trough (steady state, 2 weeks or more after transplant): 3.0 - 8.0 . Performed by LC-MS/MS technology. Performed By: #### F K506T ####[facility] [address] [place] [address]Dr. Farhat Leal PHOSPHORUSon 01-26-2022 Phosphate [Mass/Vol] 4.1 mg/dL Normal 2.6-4.7 [facility] Comment on above: Performed By: #### C CARA, PHOS ####[facility] [address] [place], [place] [address]Dr. Farhat Leal PROF 14(COMP METB)on 022 Albumin [Mass/Vol] 2.1 g/dL Critically low 3.4-5.[address] [facility] Comment on above: Performed By: #### C CARA, PHOS ####[facility] [address] [place], [place] [address]Dr. Farhat Leal Albumin/Globulin [Mass ratio] 0.6 {ratio} Normal [facility] Comment on above: Performed By: #### C CARA, PHOS ####[facility] [address] [place], [place] [address]Dr. Farhat Leal ALP [Catalytic activity/Vol] 89 U/L Normal 46-116 [facility] Comment on above: Performed By: #### C CARA, PHOS ####[facility] [address] [place], [place] [address]Dr. Farhat Leal ALT [Catalytic activity/Vol] 27 U/L Normal 16-63 [facility] Comment on above: Performed By: #### C CARA, PHOS ####[facility] [address] [place], [place] [address]Dr. Farhat Leal Anion gap [Moles/Vol] 12.3 mmol/L Normal [facility] Comment on above: Performed By: #### C CARA, PHOS ####[facility] [address] [place] [id number]. Farhat Leal AST [Catalytic activity/Vol] 53 U/L Critically high 15-37 [facility] Comment on above: Performed By: #### C MP, PHOS ####[facility] [address] [place] [id number]. Farhat Leal Bilirubin [Mass/Vol] 0.6 mg/dL Normal 0.2-1.0 [facility] Comment on above: Performed By: #### C MP, PHOS ####[facility] [address] [place] [address]Dr. Farhat Leal Calcium [Mass/Vol] 8.0 mg/dL Critically low 8.5-10.1 Th e [facility] Comment on above: Performed By: #### C CARA, PHOS ####[facility] [address] [place], [place] [address]Dr. Farhat Leal Chloride [Moles/Vol] 97 mmol/L Critically low 98-107 [facility] Comment on above: Performed By: #### C CARA, PHOS ####[facility] [address] [place], [place] [address]Dr. Farhat Leal CO2 [Moles/Vol] 26.6 mmol/L Normal 21.0-32.0 [facility] Comment on above: Performed By: #### C CARA, PHOS ####[facility] [address] [place], [place] [address]Dr. Farhat Leal Creatinine [Mass/Vol] 1.03 mg/dL Normal 0.70-1.30 [facility] Comment on above: Performed By: #### C CARA, PHOS ####[facility] [address] [place] [address]Dr. Farhat Leal EGFR-AF CYMRAES >60 Normal >=60 [facility] Comment on above: Performed By: #### C MP, PHOS ####[facility] [address] [place] [address]Dr. Farhat Leal EGFR-NON AF CYMRAES >60 Normal >=60 [facility] Comment on above: Performed By: #### C MP, PHOS ####[facility] [address] [place] [address]Dr. Farhat Leal Globulin (S) [Mass/Vol] 3.7 g/dL Normal [facility] Comment on above: Performed By: #### C MP, PHOS ####[facility] [address] [place] [address]Dr. Farhat Leal Glucose [Mass/Vol] 287 mg/dL Critically high 74-106 [facility] [place] Comment on above: Performed By: #### C MP, PHOS ####[facility] [address] [place], [place] [address]Dr. Farhat Leal Potassium [Moles/Vol] 3.9 mmol/L Normal 3.5-5.1 [facility] Comment on above: Performed By: #### C CARA, PHOS ####[facility] [address] [place], [place] [address]Dr. Farhat Leal Protein [Mass/Vol] 5.8 g/dL Critically low 6.4-8.2 Th [facility] Comment on above: Performed By: #### C CARA, PHOS ####[facility] [address] [place], [place] [address]Dr. Farhat Leal Sodium [Moles/Vol] 132 mmol/L Critically low 136-145 Th [facility] Comment on above: Performed By: #### C MP, PHOS ####[facility] [address] [place], [place] [address]Dr. Farhat Leal Urea nitrogen [Mass/Vol] 23.0 mg/dL Critically high 7.0-18.0 [facility] Comment on above: Performed By: #### C MP, PHOS ####[facility] [address] [place], [place] [address]Dr. Farhat Leal Urea nitrogen/Creatinine [Mass ratio] 22.3 mg/mg Normal [facility] Comment on above: Performed By: #### C MP, PHOS ####[facility] [address] [place], [place] [address]Dr. Farhat Elvis FK506 (TACROLIMUS) WHOLE BLO ODon 12-07-2022 Tacrolimus (FK506), Blood 12.2 ng/mL Normal 2.0-20.0 [facility] Comment on above: Result Comment: Trou gh (immediately following transplant) 15.0 . Trough (steady state, 2 weeks or more after transplant): 3.0 - 8.0 . Performed by LC-MS/MS technology. Performed By: #### F K506T ####[facility] [address] [place] [id number]. Farhat Leal ACID FAST SMEAR AND CXon Acid Fast Culture Negative Normal [facility] Comment on above: Result Comment: No a abdiel fast bacilli isolated after 6 weeks. Performed By: #### A FB ####[facility] [address] [place] [id number]. Farhat Leal Acid Fast Smear Negative Normal [facility] Comment on above: Performed By: #### A FB ####[facility] [address] [place] [address]Dr. Farhat Leal [employer] Specimen Processing Tissue Grinding Normal [facility] Comment on above: Performed By: #### A FB ####[facility] [address] [place] [id number]. Farhat Hassan 01-20-2022 [place] Telephone (KIMBERLY) ALEX ALMONTE ([id number]) 1945 M TRN Date Time Provider Department 01/20/22 VAN OLIVAREZ During your visit today, we recorded the following information about you: Van Olivarez APRN.DIAMANTE 01/20/2022 1:14 PM Signed Labs noted from yesterday. Pt is currently residing at [facility], I spoke with the Nurse, the results has been addressed by Physician caring for pt. He had been placed on Chlor Con and this has been discontinued and hyperkalemia has been treated. Van Olivarez APRN.OFFICE CLEANER Allergies As of Date: 01/20/2022 Noted Allergy Reaction PYRIDOSTIGMINE BROMIDE 08/04/2021 8 - GI Upset Date Reviewed: 01/15/2022 Reviewed by: Raquel Tai APRN.OFFICE CLEANER - Fully Assessed Reason for Visit: Results [...] by mouth daily with lunch. 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*11/29/2021 Malnutrition of moderate degree (HCC) [E44.0] 12/01/2021 Dermatitis associated with moisture [L30.8] 12/04/2021 Encounter Status:Closed by VAN OLIVAREZ on 01/20/22 Normal [facility] Orders Onlyon 01-20-2022 Orders Only [id number] Alex Almonte 1945 M Date Provider Department Center 01/20/2022 Fidelina8-SUSIE HERNANDES [facility] No family history on file Normal [facility] PROF 14(COMP METB)on 022 Albumin [Mass/Vol] 1.9 g/dL Critically low 3.4-5.0 Th [facility] Comment on above: Performed By: #### C MP ####[facility] [address] [place] [address]Dr. Farhat Leal Albumin/Globulin [Mass ratio] 0.5 {ratio} Normal [facility] Comment on above: Performed By: #### C MP ####[facility] [address] [place] [address]Dr. Farhat Leal ALP [Catalytic activity/Vol] 78 U/L Normal 46-116 [facility] General Comment on above: Performed By: #### C MP ####[facility] Hvogejsulh[address] [place] [address]DrSkylar Leal ALT [Catalytic activity/Vol] 22 U/L Normal 16-63 [facility] Comment on above: Performed By: #### C MP ####[facility] Iogkuvzxle39[address] [place] [address]Dr. Farhat Leal Anion gap [Moles/Vol] 8.0 mmol/L Normal [facility] Comment on above: Performed By: #### C MP ####[facility] Fztigftxmy3[address] [place] [phone]. Farhat Leal AST [Catalytic activity/Vol] 92 U/L Critically high 15-37 [facility] Comment on above: Performed By: #### C MP ####[facility] Wrzrgttrly4806 [place] [phone]. Farhat Leal Bilirubin [Mass/Vol] 0.7 mg/dL Normal 0.2-1.0 [facility] Comment on above: Performed By: #### C MP ####[facility] Bgcgjrpaeg7324 [place] [phone]. Farhat Leal Calcium [Mass/Vol] 7.8 mg/dL Critically low 8.5-10.1 Th e [facility] Comment on above: Performed By: #### C MP ####[facility] Thnlvkslhw[address] [place], [place] [address]Dr. Farhat Leal Chloride [Moles/Vol] 99 mmol/L Normal 98-107 [facility] Comment on above: Performed By: #### C MP ####[facility] Dksmclmwbm[address] [place], [place] [address]Dr. Farhat Leal CO2 [Moles/Vol] 30.9 mmol/L Normal 21.0-32.0 [facility] Comment on above: Performed By: #### C MP ####[facility] Dfoyoudsfv[address] [place], [place] [address]Dr. Farhat Leal Creatinine [Mass/Vol] 0.95 mg/dL Normal 0.70-1.30 [facility] Comment on above: Performed By: #### C MP ####[facility] Biuvasnued[address] [place] [phone]. Farhat Elvis EGFR-AF CYMRAES >60 Normal >=60 [facility] Comment on above: Performed By: #### C MP ####[facility] Domzndetrl9285 [place] [phone]. Farhat Elvis EGFR-NON AF CYMRAES >60 Normal >=60 [facility] Comment on above: Performed By: #### C MP ####[facility] Dlxxfooalk5856 [place] [phone]. Farhat Leal Globulin (S) [Mass/Vol] 3.9 g/dL Normal [facility] Comment on above: Performed By: #### C MP ####[facility] Cswefgqfli3662 [place] [phone]. Farhat Leal Glucose [Mass/Vol] 124 mg/dL Critically high 74-106 T [place] Comment on above: Performed By: #### C MP ####[facility] Nhzirkrwoy1318 [place] [address]Dr. Farhat Leal Potassium [Moles/Vol] 5.9 mmol/L Critically high 3.5-5.1 [facility] Comment on above: Performed By: #### C MP ####[facility] Vypmkfsntx6040 [place] [address]Dr. Farhat Leal Protein [Mass/Vol] 5.8 g/dL Critically low 6.4-8.2 Th [facility] Comment on above: Performed By: #### C MP ####[facility] Qnyjxchdlq7747 [place] [address]Dr. Farhat Leal Sodium [Moles/Vol] 132 mmol/L Critically low 136-145 Th [facility] Comment on above: Performed By: #### C MP ####[facility] Fgvhjhxqrf2727 [place] [address]Dr. Farhat Leal Urea nitrogen [Mass/Vol] 18.0 mg/dL Normal 7.0-18.0 [facility] Comment on above: Performed By: #### C MP ####[facility] Txuswaptie79[address] [place] [address]Dr. Farhat Leal Urea nitrogen/Creatinine [Mass ratio] 18.9 mg/mg Normal [facility] Comment on above: Performed By: #### C MP ####[facility] Tuwnpsprhs[address] [place], [place] [address]Dr. Farhat Leal INR (POC)on 01-12-2022 INR Coag (PPP) [Relative time] 2.6 {INR} High 0.8 - 1.2 [facility] Internal Quality Check Acceptable Cl [facility] ACID FAST SMEAR AND CXon Acid Fast Culture Negative Normal [facility] Comment on above: Result Comment: No a abdiel fast bacilli isolated after 6 weeks. Performed By: #### A FB ####[facility] Wsdshqjgvi1397 [place] [phone]. Farhat Leal Acid Fast Smear Negative Normal [facility] Comment on above: Performed By: #### A FB ####[facility] Rmqcfjpbvj269[address] [place], [place] [address]Dr. Farhat Leal [employer] Specimen Processing Direct Inoculation [facility] [place] [facility] Comment on above: Performed By: #### A FB ####[facility] Ljyaoongbs94[address] [place], [place] [address]Dr. Farhat Leal ACID FAST SMEAR AND CXon Acid Fast Culture Negative Normal [facility] Comment on above: Result Comment: No a abdiel fast bacilli isolated after 6 weeks. Performed By: #### A FB ####[facility] Opowxoxhrh916[address] [place], [place] [address]Dr. Farhat Leal Acid Fast Smear Negative Normal [facility] Comment on above: Performed By: #### A FB ####[facility] Elnohcirvm89[address] [place], [place] [address]Dr. Farhat Leal [employer] Specimen Processing Tissue Grinding [facility] Comment on above: Performed By: #### A FB ####[facility] Zdefabgykf13[address] [place], [place] [address]Dr. Farhat Leal FUNGAL CULTUREon 01-02-2022 Fungus (Mycology) Culture Final report Normal [facility] Comment on above: Performed By: #### C XFUN ####[facility] Uetzstvbqo95[address] [place], [place] [address]Dr. Farhat Leal Fungus Stain Final report Normal [facility] Comment on above: Performed By: #### C XFUN ####[facility] Bcywhtcyqk54[address] [place], [place] [address]Dr. Farhat Leal Result 1 Comment Normal [facility] Comment on above: Result Comment: ANNI/ Calcofluor preparation: no fungus observed. Performed By: #### C XFUN ####[facility] Q[address]bzycl[address] [place] [address]. Farhat Leal Result Comment: No y east or mold isolated after 4 weeks. FK506 (TACROLIMUS) WHOLE BLO ODon 12-31-2021 Tacrolimus (FK506), Blood 7.7 ng/mL Normal 2.0-20.0 [facility] Comment on above: Result Comment: Trou gh (immediately following transplant) 15.0 . Trough (steady state, 2 weeks or more after transplant): 3.0 - 8.0 . Performed by LC-MS/MS technology. Performed By: #### F K506T ####[facility] [address] [place] [address]. Farhat Leal HEMOGRAM AND PLATELon 2021 Hematocrit (Bld) [Volume fraction] 27.1 % Critically low 42.0-54.0 [facility] Comment on above: Performed By: #### H H ####[facility] Idugxyeeur[address] [place] [address]. Farhat Leal Hemoglobin (Bld) [Mass/Vol] 8.7 g/dL Critically low 14.0-18.0 [facility] Comment on above: Performed By: #### H H ####[facility] [address] [place] [address]. Farhat Leal MCH (RBC) [Entitic mass] 30.3 pg Normal 25.9-34.0 [facility] Comment on above: Performed By: #### H H ####[facility] [address] [place] [address]. Farhat Leal MCHC (RBC) [Mass/Vol] 32.1 g/dL Normal 29.9-35.2 [facility] Comment on above: Performed By: #### H H ####[facility] Qnljtrokol[address] [place] [address]. Farhat Leal MCV (RBC) [Entitic vol] 94.4 fL Critically high 80.0-94.0 [facility] Comment on above: Performed By: #### H H ####[facility] Kobtrizknf0203 [place] [phone]. Farhat Leal PLT 355 103/ul Normal 150-450 [facility] Comment on above: Performed By: #### H H ####[facility] Frlggtcfya4362 [place] [address]Dr. Farhat Leal RBC 2.87 106/ul Critically low 4.70-6.10 [facility] Comment on above: Performed By: #### H H ####[facility] Wccnwqccei4422 [place] [address]Dr. Farhat Leal WBC 6.0 103/ul Normal 4.0-11.0 [facility] Comment on above: Performed By: #### H H ####[facility] Hermcqhone7[address] [place] [address]Dr. Farhat Leal PHOSPHORUSon 12-29-2021 Phosphate [Mass/Vol] 2.5 mg/dL Critically low 2.6-4.7 [facility] Comment on above: Performed By: #### P HOS, CMP ####[facility] Slhpmshqxi57[address] [place], [place] [address]Dr. Farhat Elvis PROF 14(COMP METB)on 022 Albumin [Mass/Vol] 1.7 g/dL Critically low 3.4-5.[address] [facility] Comment on above: Performed By: #### P HOS, CMP ####[facility] Qeweyzgaya24[address] [place] [address]Dr. Farhat Leal Albumin/Globulin [Mass ratio] 0.5 {ratio} Normal [facility] Comment on above: Performed By: #### P HOS, CMP ####[facility] Qhfsctscuq0769 [place] [address]Dr. Farhat Leal ALP [Catalytic activity/Vol] 78 U/L Normal 46-116 [facility] Comment on above: Performed By: #### P HOS, CMP ####[facility] Zlbvhfvegh1765 [place] [address]Dr. Farhat Elvis ALT [Catalytic activity/Vol] 12 U/L Critically low 16-63 [facility] Comment on above: Performed By: #### P HOS, CMP ####[facility] Otlvzwofcu1976 [place] [phone]. Farhat Leal Anion gap [Moles/Vol] 5.1 mmol/L Normal [facility] Comment on above: Performed By: #### P HOS, CMP ####[facility] Lrzkavypgk2842 [place] [address]Dr. Farhat Leal AST [Catalytic activity/Vol] 22 U/L Normal 15-37 [facility] Comment on above: Performed By: #### P HOS, CMP ####[facility] Pumpfxtniq33[address] [place], [place] [address]Dr. Farhat Leal Bilirubin [Mass/Vol] 0.6 mg/dL Normal 0.2-1.0 [facility] Comment on above: Performed By: #### P HOS, CMP ####[facility] Dwcvowtyez4625[address] [place], [place] [address]Dr. Farhat Leal Calcium [Mass/Vol] 8.1 mg/dL Critically low 8.5-10.1 Th [facility] Comment on above: Performed By: #### P HOS, CMP ####[facility] Ahkaeeajhu214[address] [place], [place] [address]Dr. Farhat Leal Chloride [Moles/Vol] 100 mmol/L Normal 98-107 [facility] Comment on above: Performed By: #### P HOS, CMP ####[facility] Rdqdcetnrb[address] [place], [place] [address]Dr. Farhat Leal CO2 [Moles/Vol] 34.2 mmol/L Critically high 21.0-32.0 [facility] Comment on above: Performed By: #### P HOS, CMP ####[facility] Kondvshthf[address] [place], [place] [address]Dr. Farhat Leal Creatinine [Mass/Vol] 0.92 mg/dL Normal 0.70-1.30 [facility] Comment on above: Performed By: #### P HOS, CMP ####[facility] Fssclwemmh[address] [place], [place] [address]Dr. Farhat Leal EGFR-AF CYMRAES >60 Normal >=60 [facility] Comment on above: Performed By: #### P HOS, CMP ####[facility] Idhkvxibam7503 [place] [phone]. Farhat Leal EGFR-NON AF CYMRAES >60 Normal >=60 [facility] Comment on above: Performed By: #### P HOS, CMP ####[facility] Ckptuacqrt5695 [place] [phone]. Farhat Leal Globulin (S) [Mass/Vol] 3.3 g/dL Normal [facility] Comment on above: Performed By: #### P HOS, CMP ####[facility] Xueqmgkfzz5628 [place] [address]Dr. Farhat Leal Glucose [Mass/Vol] 116 mg/dL Critically high 74-106 [facility] Comment on above: Performed By: #### P HOS, CMP ####[facility] Dbnzvowzjw6351 [place] [address]Dr. Farhat Leal Potassium [Moles/Vol] 3.3 mmol/L Critically low 3.5-5.1 [facility] Comment on above: Performed By: #### P HOS, CMP ####[facility] Khwhsfmnow[address] [place], [place] [address]Dr. Farhat Leal Protein [Mass/Vol] 5.0 g/dL Critically low 6.4-8.2 Th [facility] Comment on above: Performed By: #### P HOS, CMP ####[facility] Ghczkrjqdm018[address] [place], [place] [address]Dr. Farhat Leal Sodium [Moles/Vol] 136 mmol/L Normal 136-145 [facility] Comment on above: Performed By: #### P HOS, CMP ####[facility] Ghtfbdwdyp8137 [place] [address]Dr. Farhat Leal Urea nitrogen [Mass/Vol] 14.0 mg/dL Normal 7.0-18.0 [facility] Comment on above: Performed By: #### P HOS, CMP ####[facility] Pvhaohpfxq8386 [place] [phone]. Farhat Leal Urea nitrogen/Creatinine [Mass ratio] 15.2 mg/mg Normal [facility] Comment on above: Performed By: #### P HOS, CMP ####[facility] Hkbgqhyzdp088[address] [place], [place] [address]Dr. Farhat Leal PROTIMEon 12-29-2021 INR Coag (PPP) [Relative time] 1.26 {INR} Normal [facility] Comment on above: Performed By: #### P T ####[facility] Ekraeiookz643[address] [place], [place] [address]Dr. Farhat Leal INR GUIDELINES SEE BELOW Normal [facility] Comment on above: Result Comment: MALINA RED INR: 2.0 - 3.0 CONDITIONS NOT LISTED BELOW 2.5 - 3.5 FOR PROSTHETIC HEART VALVE REPLACEMENT 2.5 - 3.5 RECURRENT THROMBOSIS Performed By: #### P T ####[facility] Njpoucbrwt349[address] [place], [place] [address]Dr. Farhat Leal PT Coag (PPP) [Time] 13.4 s Critically high 9.0-11.6 [facility] Comment on above: Performed By: #### P T ####[facility] Raimafxriy73[address] [place], [place] [address]Dr. Farhat Leal XR MODIFIED BARIUM SWALLOWon 12-25-2021 XR MODIFIED BARIUM SWALLOW Normal [facility] FUNGAL CULTUREon 12-24-2021 Fungus (Mycology) Culture Final report Normal [facility] Comment on above: Performed By: #### C XFUN ####[facility] Ukcbdktmyi627[address] [place], [place] [address]Dr. Farhat Leal Fungus Stain Final report Normal [facility] Comment on above: Performed By: #### C XFUN ####[facility] Vhuduardmc464[address] [place], [place] [address]Dr. Farhat Leal Result 1 Comment Normal [facility] Comment on above: Result Comment: ANNI/ Calcofluor preparation: no fungus observed. Performed By: #### C XFUN ####[facility] Xfxfowqbrq36[address] [place], [place] [address]DrSkylar Leal Result Comment: No y east or mold isolated after 4 weeks. VANCOMYCIN TROUGHon 12-21-19 VANCOMYCIN TROUGH 14.4 ug/ml Normal 5.0-20.0 [facility] Comment on above: Performed By: #### V ANCT ####[facility] Tnopnxqehr2257 [place] [address]Dr. Farhat Leal CBC AUTO DIFFon 12-14-2021 BASO # 0.0 103/ul Normal 0.0-0.1 [facility] Comment on above: Performed By: #### C BC ####[facility] Aupmfdmddh084[address] [place], [place] [address]Dr. Farhat Elvis Basophils/100 WBC (Bld) 0.2 % Normal 0.2-2.0 [facility] Comment on above: Performed By: #### C BC ####[facility] Rysaeuapzq[address] [place], [place] [address]Dr. Farhat Leal EO # 0.2 103/ul Normal 0.0-0.7 [facility] Comment on above: Performed By: #### C BC ####[facility] Tanynfjxvq954[address] [place], [place] [address]Dr. Farhat Elvis Eosinophils/100 WBC (Bld) 2.1 % Normal 0.9-7.0 [facility] Comment on above: Performed By: #### C BC ####[facility] Ymaheozcat4816[address] [place], [place] [address]Dr. Farhat Leal Erythrocyte distribution width (RBC) [Ratio] 18.2 % Critically high 11.0-15.0 [facility] Comment on above: Performed By: #### C BC ####[facility] Yppjaulqww028[address] [place], [place] [address]Dr. Farhat Leal Hematocrit (Bld) [Volume fraction] 25.8 % Critically low 42.0-54.0 [facility] Comment on above: Performed By: #### C BC ####[facility] Bhnhnaqppi767[address] [place], [place] [address]Dr. Farhat Leal Hemoglobin (Bld) [Mass/Vol] 8.0 g/dL Critically low 14.0-18.0 [facility] Comment on above: Performed By: #### C BC ####[facility] Aviuwhhoha9081 [place] [phone]. Farhat Leal IG # 0.08 10e3/ul Critically high 0.00-0.03 [facility] Comment on above: Performed By: #### C BC ####[facility] Sjxdeyahzs0498 [place] [address]Dr. Farhat Leal IG % 0.7 % Critically high 0.0-0.5 [facility] Comment on above: Performed By: #### C BC ####[facility] Zzggpidxxi4434 [place] [address]Dr. Farhat Elvis LYMPH # 0.9 103/ul Critically low 1.2-3.8 [facility] Comment on above: Performed By: #### C BC ####[facility] Klyxzradzc6602 [place] [address]Dr. Farhat Elvis Lymphocytes/100 WBC (Bld) 8.7 % Critically low 20.5-60.0 [facility] Comment on above: Performed By: #### C BC ####[facility] Rjhdybamfb8733 [place] [address]Dr. Farhat Leal MANUAL DIFF REQ NO Normal [facility] Comment on above: Performed By: #### C BC ####[facility] Ibmeidrbea9821 [place] [address]Dr. Farhat Leal MCH (RBC) [Entitic mass] 30.0 pg Normal 25.9-34.0 [facility] Comment on above: Performed By: #### C BC ####[facility] Ewttceglws89350[address] [place], [place] [address]Dr. Farhat Leal MCHC (RBC) [Mass/Vol] 31.0 g/dL Normal 29.9-35.2 [facility] Comment on above: Performed By: #### C BC ####[facility] Tvkjofayxm648[address] [place], [place] [address]DrSkylar Farhat Leal MCV (RBC) [Entitic vol] 96.6 fL Critically high 80.0-94.0 [facility] Comment on above: Performed By: #### C BC ####[facility] Mamxrafijf4836 [place] [phone]. Farhat Leal MONO # 0.7 103/ul Normal 0.3-0.8 [facility] Comment on above: Performed By: #### C BC ####[facility] Rfbhqnhzmn6614 [place] [address]Dr. Farhat Leal Monocytes/100 WBC (Bld) 6.7 % Normal 1.7-12.0 [facility] Comment on above: Performed By: #### C BC ####[facility] Yopreiacht[address] [place], [place] [address]Dr. Farhat Leal NEUT # 8.8 103/ul Critically high 1.4-6.5 [facility] Comment on above: Performed By: #### C BC ####[facility] Ejphuimfbz0713[address] [place], [place] [address]Dr. Farhat Leal Neutrophils/100 WBC (Bld) 81.6 % Critically high 43.0-75.0 [facility] Comment on above: Performed By: #### C BC ####[facility] Xxqpphdnik048[address] [place], [place] [address]Dr. Farhat Leal Platelet mean volume (Bld) [Entitic vol] 10.5 fL Normal 9.5-13.5 [facility] Comment on above: Performed By: #### C BC ####[facility] Lzheyxihfw169[address] [place], [place] [address]Dr. Farhat Leal PLT 285 103/ul Normal 150-450 [facility] Comment on above: Performed By: #### C BC ####[facility] Wausrolxiw097[address] [place], [place] [address]Dr. Farhat Leal RBC 2.67 106/ul Critically low 4.70-6.10 [facility] Comment on above: Performed By: #### C BC ####[facility] Gsouofyasg[address] [place], [place] [address]Dr. Farhat Leal WBC 10.7 103/ul Normal 4.0-11.0 [facility] Comment on above: Performed By: #### C BC ####[facility] Smhlzpytdp645[address] [place], [place] [address]Dr. Farhat Leal PROF CHEM 8 (BAS METB)on Anion gap [Moles/Vol] 12.4 mmol/L Normal [facility] Comment on above: Performed By: #### B MP ####[facility] Sjjmerpslr4193 [place] [address]Dr. Madelynlorri Elvis Calcium [Mass/Vol] 7.8 mg/dL Critically low 8.5-10.[address] [facility] Comment on above: Performed By: #### B MP ####[facility] Kdtrynbpqj3458 [place] [address]Dr. Farhat Leal Chloride [Moles/Vol] 102 mmol/L Normal 98-107 [facility] Comment on above: Performed By: #### B MP ####[facility] Gtdgartcor1097 [place] [address]Dr. Farhat Leal CO2 [Moles/Vol] 28.1 mmol/L Normal 21.0-32.0 [facility] Comment on above: Performed By: #### B MP ####[facility] Dnzjhaxlci9[address] [place], [place] [address]Dr. Farhat Leal Creatinine [Mass/Vol] 1.24 mg/dL Normal 0.70-1.30 [facility] Comment on above: Performed By: #### B MP ####[facility] Zogsoteuzb504[address] [place], [place] [address]Dr. Farhat Leal EGFR-AF CYMRAES >60 Normal >=60 [facility] Comment on above: Performed By: #### B MP ####[facility] Xsifzxjrju7107 [place] [address]Dr. Farhat Leal EGFR-NON AF CYMRAES 57 mL/min/1.73m2 Critically low >=60 [facility] Comment on above: Performed By: #### B MP ####[facility] Ojqlrccllm230[address] [place], [place] [address]Dr. Farhat Leal Glucose [Mass/Vol] 296 mg/dL Critically high 74-106 [facility] Comment on above: Performed By: #### B MP ####[facility] Dsuqjdpxpu[address] [place], [place] [address]Dr. Farhat Leal Potassium [Moles/Vol] 3.5 mmol/L Normal 3.5-5.1 [facility] Comment on above: Performed By: #### B MP ####[facility] Duebqqrsmw5968 [place] [address]Dr. Farhat Leal Sodium [Moles/Vol] 139 mmol/L Normal 136-145 [facility] Comment on above: Performed By: #### B MP ####[facility] Uyfyzkzdxx9699 [place] [address]Dr. Farhat Leal Urea nitrogen [Mass/Vol] 27.0 mg/dL Critically high 7.0-18.0 [facility] Comment on above: Performed By: #### B MP ####[facility] Oigkhyxaqo47[address] [place], [place] [address]Dr. Farhat Leal Urea nitrogen/Creatinine [Mass ratio] 21.8 mg/mg Normal [facility] Comment on above: Performed By: #### B MP ####[facility] Gjglakgzse[address] [place] [id number]. Farhat Leal PROTIMEon 12-14-2021 INR Coag (PPP) [Relative time] 3.36 {INR} Normal [facility] Comment on above: Performed By: #### P T ####[facility] Makbcyfmzy[address] [place], [place] [address]Dr. Farhat Leal INR GUIDELINES SEE BELOW Normal The [facility] Comment on above: Result Comment: MALINA RED INR: 2.0 - 3.0 CONDITIONS NOT LISTED BELOW 2.5 - 3.5 FOR PROSTHETIC HEART VALVE REPLACEMENT 2.5 - 3.5 RECURRENT THROMBOSIS Performed By: #### P T ####[facility] Osbpxeov[address] [place], [place] [address]Dr. Farhat Leal PT Coag (PPP) [Time] 33.5 s Critically high 9.0-11.6 [facility] Comment on above: Performed By: #### P T ####[facility] Xoktpynzjc[address] [place], [place] [address]Dr. Farhat Leal XR CHEST 1 Von 12-14-2021 XR CHEST 1 V Normal [facility] No Panel Informationon 12-01 BLANK _ [facility] Implant Date 04/22/2012 [facility] CL[facility] CHECKon AMS Duration (ms) 5 of 8 [facility] AMS Fallback Rate (bpm) DDIR [facility] AV Delay Adaptive Paced Minimum (ms) 300 ms [facility] AV Delay Adaptive Rate Maximum (bpm) 130 {beats}/min [facility] AV Delay Adaptive Rate Minimum (bpm) 70 {beats}/min [facility] AV Delay Adaptive Sensed Minimum (ms) 300 ms [facility] AV Delay Paced (ms) 300 ms [facility] AV Delay Sensed (ms) 300 ms [facility] Jaciel LV Pacing Polarity Unknown [facility] Jaciel LV Sensing Polarity Unknown [facility] Jaciel RA Pacing Amplitude (volts) 2.4 V [facility] Jaciel RA Pacing Polarity BI [facility] Jaciel RA Pacing Pulse Width (ms) 0.4 ms [facility] Jaciel RA Sensing Amplitude (mvolts) AUTO [facility] Jaciel RA Sensing Blanking Period (ms) 56 ms [facility] Jaciel RA Sensing Polarity BI [facility] Jaciel RA Sensing Refractory Period (ms) AUTO [facility] Jaciel RV Pacing Amplitude (volts) 3.4 V [facility] Jaciel RV Pacing Polarity BI [facility] Jaciel RV Pacing Pulse Width (ms) 0.4 ms [facility] Jaciel RV Sensing Amplitude (mvolts) AUTO [facility] Jaciel RV Sensing Blanking Period (ms) 30 ms [facility] Jaciel RV Sensing Polarity BI [facility] Jaciel RV Sensing Refractory Period (ms) 250 ms [facility] Hysteresis Rate (bpm) 60 {beats}/min [facility] Lead1 Mfg SUZETTE [facility] Lead2 Mfg SUZETTE [facility] Location RA [facility] Location RV [facility] Lower Rate (bpm) 60 {beats}/min [facility] Max Sensor Rate (bmp) 130 {beats}/min [facility] Model [id number] Monika Dominguez [facility] Model [id number] [facility] Model [id number] [facility] Pacemaker Dependent? NO [facility] PM-Device Mfg BIO [facility] PM-PMT Intervention ON [facility] PM-PVC Intervention ON [facility] PM-Rate Modulation Acceleration Reaction 4 s [facility] PM-Rate Modulation Deceleration 0.5 m [facility] PM-Rate Modulation Trigg 23 [facility] PM-Rate Modulation Threshold Medium [facility] RA Bipolar Impedance ohms 448 ohm [facility] Rhythm AF with controlled ventricular rate. [facility] RV Bipolar Impedance ohms 390 ohm [facility] Serial Number [id number] [facility] Serial Number [id number] [facility] Serial Number [id number] [facility] Thresh RA Sensing Amplitude (mvolts) 2.4 mV [facility] Thresh RV Capture Amplitude (volts) 1.8 V [facility] Thresh RV Capture Duration (ms) 0.4 ms [facility] Thresh RV Sensing Amplitude (mvolts) 2.4 mV [facility] Tracking Rate (bpm) 160 {beats}/min [facility] BNPon 11-28-2021 Natriuretic peptide B (Bld) [Mass/Vol] 25635.0 pg/mL Critically high <=1,800.0 [facility] Comment on above: Performed By: #### C MP, BNP, CRP ####[facility] Lnrouofnus[address] [place], [place] [address]Dr. Farhat Leal CBC AUTO DIFFon 11-28-2021 BASO # 0.0 103/ul Normal 0.0-0.1 [facility] Comment on above: Performed By: #### C BC ####[facility] Qlskaxiaon8[address] [place], [place] [address]Dr. Farhat Leal Basophils/100 WBC (Bld) 0.3 % Normal 0.2-2.0 [facility] Comment on above: Performed By: #### C BC ####[facility] Dffzyrdiiw528[address] [place], [place] [address]Dr. Farhat Leal EO # 0.1 103/ul Normal 0.0-0.7 [facility] Comment on above: Performed By: #### C BC ####[facility] Okjsvdqfdp8416[address] [place], [place] [address]Dr. Farhat Lela Eosinophils/100 WBC (Bld) 1.0 % Normal 0.9-7.0 [facility] Comment on above: Performed By: #### C BC ####[facility] Jwmanigjdo9[address] [place], [place] [address]DrSkylar Leal Erythrocyte distribution width (RBC) [Ratio] 14.0 % Normal 11.0-15.0 [facility] Comment on above: Performed By: #### C BC ####[facility] [address]fk[address] [place] [address]DrSkylar Leal Hematocrit (Bld) [Volume fraction] 27.6 % Critically low 42.0-54.0 [facility] Comment on above: Performed By: #### C BC ####[facility] Bphzqobxxo[address] [place], [place] [address]DrSkylar Leal Hemoglobin (Bld) [Mass/Vol] 9.0 g/dL Critically low 14.0-18.0 [facility] Comment on above: Performed By: #### C BC ####[facility] Hbajjkdexi114[address] [place], [place] [address]DrSkylar Leal IG # 0.12 10e3/ul Critically high 0.00-0.03 [facility] Comment on above: Performed By: #### C BC ####[facility] Aihqjhfcza[address] [place], [place] [address]DrSkylar Leal IG % 1.0 % Critically high 0.0-0.5 [facility] Comment on above: Performed By: #### C BC ####[facility] Bqkwhkozpd38[address] [place], [place] [address]DrSkylar Leal LYMPH # 1.2 103/ul Normal 1.2-3.8 [facility] Comment on above: Performed By: #### C BC ####[facility] Zgtqwlgnjj310[address] [place], [place] [address]DrSkylar Leal Lymphocytes/100 WBC (Bld) 9.9 % Critically low 20.5-60.0 [facility] Comment on above: Performed By: #### C BC ####[facility] Ehprpkhxib743[address] [place], [place] [address]DrSkylar Leal MANUAL DIFF REQ NO Normal [facility] Comment on above: Performed By: #### C BC ####[facility] Aylwxhxgdj460[address] [place], [place] [address]DrSkylar Leal MCH (RBC) [Entitic mass] 30.0 pg Normal 25.9-34.0 [facility] Comment on above: Performed By: #### C BC ####[facility] T[address]wjdgce3[address] [place] [address]Dr. Farhat Leal MCHC (RBC) [Mass/Vol] 32.6 g/dL Normal 29.9-35.2 [facility] Comment on above: Performed By: #### C BC ####[facility] Vwgvnrtkqf163[address] [place], [place] [address]Dr. Farhat Leal MCV (RBC) [Entitic vol] 92.0 fL Normal 80.0-94.0 [facility] Comment on above: Performed By: #### C BC ####[facility] Akbgavzjtz[address] [place], [place] [address]DrSkylar Leal MONO # 1.1 103/ul Critically high 0.3-0.8 [facility] Comment on above: Performed By: #### C BC ####[facility] Trkzkjvwia[address] [place], [place] [address]Dr. Farhat Leal Monocytes/100 WBC (Bld) 9.3 % Normal 1.7-12.0 [facility] Comment on above: Performed By: #### C BC ####[facility] Mdtfjllgjr[address] [place], [place] [address]DrSkylar Leal NEUT # 9.3 103/ul Critically high 1.4-6.5 [facility] Comment on above: Performed By: #### C BC ####[facility] Koxldylvrl7[address] [place], [place] [address]Dr. Farhat Leal Neutrophils/100 WBC (Bld) 78.5 % Critically high 43.0-75.0 [facility] Comment on above: Performed By: #### C BC ####[facility] Zqrivkojhn[address] [place], [place] [address]DrSkylar Leal Platelet mean volume (Bld) [Entitic vol] 9.6 fL Normal 9.5-13.5 [facility] Comment on above: Performed By: #### C BC ####[facility] Fa[address]cph[address] [place], [place] [address]Dr. Farhat Leal PLT 357 103/ul Normal 150-450 [facility] Comment on above: Performed By: #### C BC ####[facility] [address] [place] [id number]. Farhat Leal RBC 3.00 106/ul Critically low 4.70-6.10 [facility] Comment on above: Performed By: #### C BC ####[facility] K[address]ujeq2[address] [place] [phone]. Farhat Leal WBC 11.8 103/ul Critically high 4.0-11.0 [facility] Comment on above: Performed By: #### C BC ####[facility] Y[address]be[address]qx84[address] [place] [address]Dr. Farhat Leal CRPon 11-28-2021 CRP 20.9 mg/dL Critically high <=1.0 [facility] Comment on above: Performed By: #### C MP, BNP, CRP ####[facility] Wbm[address]clswop4[address] [place] [address]Dr. Farhat Leal CULTURE OTHERon 11-28-2021 CULTURE OTHER Normal [facility] Comment on above: Performed By: #### O THCX ####[facility] Ufzff[address]hgw[address] [place], [place] [address]Dr. Farhat Leal CULTURE OTHER Normal [facility] Comment on above: Performed By: #### O THCX ####[facility] Cuoiuxrkuy[address] [place], [place] [address]Dr. Farhat Elvis PROF 14(COMP METB)on 022 Albumin [Mass/Vol] 1.4 g/dL Critically low 3.4-5.0 Th [facility] Comment on above: Performed By: #### C MP, BNP, CRP ####[facility] Etzpedjmwd[address] [place] [address]Dr. Farhat Leal Albumin/Globulin [Mass ratio] 0.4 {ratio} Normal [facility] Comment on above: Performed By: #### C MP, BNP, CRP ####[facility] Br[address]yrkiwkp74[address] [place] [address]Dr. Farhat Leal ALP [Catalytic activity/Vol] 82 U/L Normal 46-116 [facility] Comment on above: Performed By: #### C MP, BNP, CRP ####[facility] Mc[address]jfxl[address] [place] [address]Dr. Farhat Leal ALT [Catalytic activity/Vol] 20 U/L Normal 16-63 [facility] Comment on above: Performed By: #### C MP, BNP, CRP ####[facility] Giptfxseoy[address] [place] [address]Dr. Farhat Leal Anion gap [Moles/Vol] 13.0 mmol/L Normal [facility] Comment on above: Performed By: #### C MP, BNP, CRP ####[facility] Mm[address]zyboco[address] [place] [address]Dr. Farhat Leal AST [Catalytic activity/Vol] 33 U/L Normal 15-37 [facility] Comment on above: Performed By: #### C MP, BNP, CRP ####[facility] Gripqpmhdq[address] [place] [address]Dr. Farhat Leal Bilirubin [Mass/Vol] 0.7 mg/dL Normal 0.2-1.0 [facility] Comment on above: Performed By: #### C MP, BNP, CRP ####[facility] Cpfxfhrnpj8072 [place] [address]Dr. Farhat Leal Calcium [Mass/Vol] 8.4 mg/dL Critically low 8.5-10.[address] [facility] Comment on above: Performed By: #### C MP, BNP, CRP ####[facility] Kxswuokewc[address] [place] [address]Dr. Farhat Leal Chloride [Moles/Vol] 100 mmol/L Normal 98-107 [facility] Comment on above: Performed By: #### C MP, BNP, CRP ####[facility] Gfauczbquq2397 [place] [address]Dr. Farhat Leal CO2 [Moles/Vol] 23.7 mmol/L Normal 21.0-32.0 [facility] Comment on above: Performed By: #### C MP, BNP, CRP ####[facility] Zhusmycols1632 [place] [address]Dr. Farhat Elvis Creatinine [Mass/Vol] 1.70 mg/dL Critically high 0.70-1.30 [facility] Comment on above: Performed By: #### C MP, BNP, CRP ####[facility] Kmwxyoqldt[address] [place], [place] [address]Dr. Farhat Elvis EGFR-AF CYMRAES 48 mL/min/1.73m2 Critically low >=60 [facility] Comment on above: Performed By: #### C MP, BNP, CRP ####[facility] Bazlrdvfre[address] [place], [place] [address]Dr. Madelynlorri Elvis EGFR-NON AF CYMRAES 39 mL/min/1.73m2 Critically low >=60 [facility] Comment on above: Performed By: #### C MP, BNP, CRP ####[facility] Rgtwilrjcj[address] [place], [place] [address]Dr. Farhat Leal Globulin (S) [Mass/Vol] 3.6 g/dL Normal [facility] Comment on above: Performed By: #### C MP, BNP, CRP ####[facility] Ddyojdsytk64[address] [place], [place] [address]Dr. Farhat Leal Glucose [Mass/Vol] 232 mg/dL Critically high 74-106 [facility] [place] Comment on above: Performed By: #### C MP, BNP, CRP ####[facility] Djpqncovxl[address] [place], [place] [address]Dr. Farhat Leal Potassium [Moles/Vol] 3.7 mmol/L Normal 3.5-5.1 [facility] Comment on above: Performed By: #### C MP, BNP, CRP ####[facility] Vodrxvstll[address] [place], [place] [address]Dr. Farhat Leal Protein [Mass/Vol] 5.0 g/dL Critically low 6.4-8.2 Th [facility] Comment on above: Performed By: #### C MP, BNP, CRP ####[facility] Cusreoutsq[address] [place], [place] [address]Dr. Farhat Leal Sodium [Moles/Vol] 133 mmol/L Critically low 136-145 Th e [facility] Comment on above: Performed By: #### C MP, BNP, CRP ####[facility] Tcgiutqlat0093 [place] [phone]. Farhat Leal Urea nitrogen [Mass/Vol] 52.0 mg/dL Critically high 7.0-18.0 [facility] Comment on above: Performed By: #### C MP, BNP, CRP ####[facility] Zis[address]fekau[address] [place] [address]Dr. Farhat Lael Urea nitrogen/Creatinine [Mass ratio] 30.6 mg/mg Normal [facility] Comment on above: Performed By: #### C MP, BNP, CRP ####[facility] M[address]vdxihct[address] [place] [address]Dr. Farhat Leal PROTIMEon 11-28-2021 INR Coag (PPP) [Relative time] 1.29 {INR} Normal [facility] Comment on above: Performed By: #### P T ####[facility] Syxxgfdfxr[address] [place], [place] [address]Dr. Farhat Leal INR GUIDELINES SEE BELOW Normal [facility] Comment on above: Result Comment: MALINA RED INR: 2.0 - 3.0 CONDITIONS NOT LISTED BELOW 2.5 - 3.5 FOR PROSTHETIC HEART VALVE REPLACEMENT 2.5 - 3.5 RECURRENT THROMBOSIS Performed By: #### P T ####[facility] Dtagokogtx[address] [place], [place] [address]Dr. Farhat Leal PT Coag (PPP) [Time] 13.7 s Critically high 9.0-11.6 [facility] Comment on above: Performed By: #### P T ####[facility] Tttkexmrmp3821 [place] [address]DrSkylar Leal SED [facility] 2021 SED RATE 77 mm/hr Critically high <=20 [facility] Comment on above: Performed By: #### S EDR ####[facility] T[address]zvwonzr[address] [place], [place] [address]DrSkylar Leal XR CHEST 2 Von 11-28-2021 XR CHEST 2 V Normal [facility] BNPon 11-27-2021 Natriuretic peptide B (Bld) [Mass/Vol] 12142.0 pg/mL Critically high <=1,800.0 [facility] Comment on above: Performed By: #### B HEAD TELLER, CMP, CRP ####[facility] Hio[address]hrcew[address] [place] [address]Dr. Farhat Leal CBC AUTO DIFFon 11-27-2021 BASO # 0.0 103/ul Normal 0.0-0.1 [facility] Comment on above: Performed By: #### C BC ####[facility] Ftuuhiszks[address] [place], [place] [address]Dr. Farhat Leal Basophils/100 WBC (Bld) 0.2 % Normal 0.2-2.0 [facility] Comment on above: Performed By: #### C BC ####[facility] Iubewuedzo7[address] [place], [place] [address]Dr. Farhat Leal EO # 0.2 103/ul Normal 0.0-0.7 [facility] Comment on above: Performed By: #### C BC ####[facility] Rhsetrarea[address] [place], [place] [address]Dr. Farhat Leal Eosinophils/100 WBC (Bld) 1.9 % Normal 0.9-7.0 [facility] Comment on above: Performed By: #### C BC ####[facility] Ajgpjeasmd[address] [place], [place] [address]Dr. Farhat Leal Erythrocyte distribution width (RBC) [Ratio] 13.9 % Normal 11.0-15.0 [facility] Comment on above: Performed By: #### C BC ####[facility] Cuetkdimpl[address] [place], [place] [address]Dr. Farhat Leal Hematocrit (Bld) [Volume fraction] 28.7 % Critically low 42.0-54.0 [facility] Comment on above: Performed By: #### C BC ####[facility] [address]zjxrozrwj[address] [place], [place] [address]Dr. Farhat Leal Hemoglobin (Bld) [Mass/Vol] 9.3 g/dL Critically low 14.0-18.0 [facility] Comment on above: Performed By: #### C BC ####[facility] Avxjjktvwp62[address] [place] [address]Dr. Farhat Leal IG # 0.14 10e3/ul Critically high 0.00-0.03 [facility] Comment on above: Performed By: #### C BC ####[facility] Uswinfpban[address] [place] [address]Dr. Farhat Leal IG % 1.2 % Critically high 0.0-0.5 [facility] Comment on above: Performed By: #### C BC ####[facility] Jock[address]umzp36[address] [place] [address]DrSkylar Leal LYMPH # 1.1 103/ul Critically low 1.2-3.8 [facility] Comment on above: Performed By: #### C BC ####[facility] Esprfhhwjw0821 [place] [address]DrSkylar Leal Lymphocytes/100 WBC (Bld) 9.4 % Critically low 20.5-60.0 [facility] Comment on above: Performed By: #### C BC ####[facility] R[address]rarbuacp8540 [place] [address]DrSkylar Leal MANUAL DIFF REQ NO Normal [facility] Comment on above: Performed By: #### C BC ####[facility] Jvuozmmfan1817 [place] [address]DrSkylar Leal MCH (RBC) [Entitic mass] 29.7 pg Normal 25.9-34.0 [facility] Comment on above: Performed By: #### C BC ####[facility] Raiplhtgxw0710 [place] [phone] Leal MCHC (RBC) [Mass/Vol] 32.4 g/dL Normal 29.9-35.2 [facility] Comment on above: Performed By: #### C BC ####[facility] Bbkszaebsv0897 [place] [phone] Leal MCV (RBC) [Entitic vol] 91.7 fL Normal 80.0-94.0 [facility] Comment on above: Performed By: #### C BC ####[facility] Tjxvjkbiql7847 [place] [address]DrSkylar Farhat Elvis MONO # 1.1 103/ul Critically high 0.3-0.8 [facility] Comment on above: Performed By: #### C BC ####[facility] Tohvxdpfbi11[address] [place] [address]Dr. Farhat Leal Monocytes/100 WBC (Bld) 9.7 % Normal 1.7-12.0 [facility] Comment on above: Performed By: #### C BC ####[facility] Vgqnlbvswl6908 [place] [address]Dr. Madelynlorri Elvis NEUT # 9.2 103/ul Critically high 1.4-6.5 [facility] Comment on above: Performed By: #### C BC ####[facility] Fwtllsserw[address] [place], [place] [address]Dr. Farhat Leal Neutrophils/100 WBC (Bld) 77.6 % Critically high 43.0-75.0 [facility] Comment on above: Performed By: #### C BC ####[facility] Bcsbfbecgz[address] [place], [place] [address]Dr. Madelynlorri Leal Platelet mean volume (Bld) [Entitic vol] 9.5 fL Normal 9.5-13.5 [facility] Comment on above: Performed By: #### C BC ####[facility] Swtrifqmsy64[address] [place] [address]Dr. Farhat Leal PLT 375 103/ul Normal 150-450 [facility] Comment on above: Performed By: #### C BC ####[facility] Iqhpemjazm[address] [place] [phone] Leal RBC 3.13 106/ul Critically low 4.70-6.10 [facility] Comment on above: Performed By: #### C BC ####[facility] Jpfgaxorot0513 [place] [phone] Leal WBC 11.8 103/ul Critically high 4.0-11.0 [facility] Comment on above: Performed By: #### C BC ####[facility] Xfrpluvvpk3257 [place] [address]Dr. Madelynlorri Elvis CRPon 11-27-2021 CRP 24.5 mg/dL Critically high <=1.0 [facility] Comment on above: Performed By: #### B HEAD TELLER, CMP, CRP ####[facility] Pfbxocsbpk7627 [place] [address]Dr. Madelynlorri Leal CULTURE OTHERon 11-27-2021 CULTURE OTHER Normal [facility] Comment on above: Performed By: #### O THCX ####[facility] Sxqhklfeax[address] [place] [address]Dr. Farhat Leal CULTURE OTHER Normal [facility] Comment on above: Performed By: #### O THCX ####[facility] Jlclrvojgz2065 [place] [address]Dr. Farhat Leal CULTURE WOUNDon 11-27-2021 CULTURE WOUND Normal [facility] Comment on above: Performed By: #### W OUNDCX ####[facility] Yqtnokcoqt5734 [place] [address]Dr. Farhat Leal POINT OF CARE GLUCOSEon 11-15 Glucose [Mass/Vol] 147 mg/dL Critically high 74-106 [facility] Comment on above: Performed By: #### P OCGLUC ####[facility] Dncyorsbmt89[address] [place] [address]Dr. Farhat Leal PROF 14(COMP METB)on 022 Albumin [Mass/Vol] 1.4 g/dL Critically low 3.4-5.[address] [facility] Comment on above: Performed By: #### B HEAD TELLER, CMP, CRP ####[facility] Fmfcateyke28[address] [place] [address]Dr. Farhat Leal Albumin/Globulin [Mass ratio] 0.4 {ratio} [facility] Comment on above: Performed By: #### B HEAD TELLER, CMP, CRP ####[facility] Mumvozrvlr060[address] [place] [address]Dr. Farhat Leal ALP [Catalytic activity/Vol] 82 U/L Normal 46-116 [facility] Comment on above: Performed By: #### B HEAD TELLER, CMP, CRP ####[facility] Gzrkuiopwb8671 [place] [address]Dr. Farhat Leal ALT [Catalytic activity/Vol] 22 U/L Normal 16-63 [facility] Comment on above: Performed By: #### B HEAD TELLER, CMP, CRP ####[facility] Lncsbfymyz9775 [place] [address]Dr. Farhat Leal Anion gap [Moles/Vol] 14.2 mmol/L Normal [facility] Comment on above: Performed By: #### B HEAD TELLER, CMP, CRP ####[facility] Gjfpfjytam[address] [place], [place] [address]Dr. Farhat Leal AST [Catalytic activity/Vol] 35 U/L Normal 15-37 [facility] Comment on above: Performed By: #### B HEAD TELLER, CMP, CRP ####[facility] Novqxdsufn512[address] [place], [place] [address]Dr. Farhat Leal Bilirubin [Mass/Vol] 0.7 mg/dL Normal 0.2-1.0 [facility] Comment on above: Performed By: #### B HEAD TELLER, CMP, CRP ####[facility] Cfnpuewdgk[address] [place], [place] [address]Dr. Farhat Leal Calcium [Mass/Vol] 8.2 mg/dL Critically low 8.5-10.[address] [facility] Comment on above: Performed By: #### B HEAD TELLER, CMP, CRP ####[facility] Rgpsqhuqnv9717 [place] [address]Dr. Farhat Leal Chloride [Moles/Vol] 99 mmol/L Normal 98-107 [facility] Comment on above: Performed By: #### B HEAD TELLER, CMP, CRP ####[facility] Frseoxbgfi1121 [place] [address]Dr. Farhat Leal CO2 [Moles/Vol] 22.6 mmol/L Normal 21.0-32.0 [facility] Comment on above: Performed By: #### B HEAD TELLER, CMP, CRP ####[facility] Lvzbrkvokr4700 [place] [address]Dr. Farhat Leal Creatinine [Mass/Vol] 1.73 mg/dL Critically high 0.70-1.30 [facility] Comment on above: Performed By: #### B HEAD TELLER, CMP, CRP ####[facility] Zvusempncg4925 [place] [address]Dr. Farhat Elvis EGFR-AF CYMRAES 47 mL/min/1.73m2 Critically low >=60 [facility] Comment on above: Performed By: #### B HEAD TELLER, CMP, CRP ####[facility] Qjogiprkpd92[address] [place], [place] [address]Dr. Madelynlorri Elvis EGFR-NON AF CYMRAES 38 mL/min/1.73m2 Critically low >=60 [facility] Comment on above: Performed By: #### B HEAD TELLER, CMP, CRP ####[facility] Smpkesaweh612[address] [place], [place] [address]Dr. Farhat Leal Globulin (S) [Mass/Vol] 3.7 g/dL Normal [facility] Comment on above: Performed By: #### B HEAD TELLER, CMP, CRP ####[facility] Qqedqkgaws150[address] [place], [place] [address]Dr. Farhat Leal Glucose [Mass/Vol] 220 mg/dL Critically high 74-106 [facility] [place] Comment on above: Performed By: #### B HEAD TELLER, CMP, CRP ####[facility] Ixizzlsrjc448[address] [place], [place] [address]Dr. Madelynlorri Elvis Potassium [Moles/Vol] 3.8 mmol/L Normal 3.5-5.1 [facility] Comment on above: Performed By: #### B HEAD TELLER, CMP, CRP ####[facility] Simdqlfumk695[address] [place], [place] [address]Dr. Madelynlorri Elvis Protein [Mass/Vol] 5.1 g/dL Critically low 6.4-8.2 Th [facility] Comment on above: Performed By: #### B HEAD TELLER, CMP, CRP ####[facility] Uvtwwkghhj188[address] [place], [place] [address]Dr. Farhat Leal Sodium [Moles/Vol] 132 mmol/L Critically low 136-145 Th e [facility] Comment on above: Performed By: #### B HEAD TELLER, CMP, CRP ####[facility] Iepqchrlvt8528 [place] [address]Dr. Farhat Leal Urea nitrogen [Mass/Vol] 49.0 mg/dL Critically high 7.0-18.0 [facility] Comment on above: Performed By: #### B HEAD TELLER, CMP, CRP ####[facility] Agtqwvzzeu160[address] [place], [place] [address]Dr. Farhat Leal Urea nitrogen/Creatinine [Mass ratio] 28.3 mg/mg Normal [facility] Comment on above: Performed By: #### B HEAD TELLER, CMP, CRP ####[facility] Omhpflumux743[address] [place], [place] [address]Dr. Farhat Leal PROTIMEon 11-27-2021 INR Coag (PPP) [Relative time] 1.25 {INR} Normal [facility] Comment on above: Performed By: #### P T ####[facility] Hcntotnebw60[address] [place], [place] [address]Dr. Farhat Leal INR GUIDELINES SEE BELOW Normal [facility] Comment on above: Result Comment: MALINA RED INR: 2.0 - 3.0 CONDITIONS NOT LISTED BELOW 2.5 - 3.5 FOR PROSTHETIC HEART VALVE REPLACEMENT 2.5 - 3.5 RECURRENT THROMBOSIS Performed By: #### P T ####[facility] Cjwqzfkaxm[address] [place], [place] [address]Dr. Farhat Leal PT Coag (PPP) [Time] 13.3 s Critically high 9.0-11.6 [facility] Comment on above: Performed By: #### P T ####[facility] Aqfbysmjit49340[address] [place], [place] [address]Dr. Farhat Leal SED RATE WESTERGRENon 2021 SED RATE 60 mm/hr Critically high <=20 [facility] Comment on above: Performed By: #### S EDR ####[facility] Nmnjdsamsk14[address] [place], [place] [address]Dr. Farhat Leal VANCOMYCIN TROUGHon 10-13-20 22 VANCOMYCIN TROUGH 21.2 ug/ml Critically high 5.0-20.0 Th e [facility] Comment on above: Performed By: #### V ANCT ####[facility] Oznqgjewuy4439[address] [place], [place] [address]Dr. Farhat Leal XR CHEST 1 Von 11-27-2021 XR CHEST 1 V Normal [facility] BNPon 11-26-2021 Natriuretic peptide B (Bld) [Mass/Vol] 17643.0 pg/mL Critically high <=1,800.0 [facility] Comment on above: Performed By: #### B HEAD TELLER, CRP, CMP ####[facility] Vvbegpilxv5314[address] [place], [place] [address]Dr. Farhat Leal CBC AUTO DIFFon 11-26-2021 BASO # 0.0 103/ul Normal 0.0-0.1 [facility] Comment on above: Performed By: #### C BC ####[facility] Modfitikoo68[address] [place], [place] [address]Dr. Farhat Leal Basophils/100 WBC (Bld) 0.2 % Normal 0.2-2.0 [facility] Comment on above: Performed By: #### C BC ####[facility] Baktutflrb456[address] [place], [place] [address]DrSkylar Leal EO # 0.0 103/ul Normal 0.0-0.7 [facility] Comment on above: Performed By: #### C BC ####[facility] Ikdjyitozm0437[address] [place], [place] [address]DrSkylar Leal Eosinophils/100 WBC (Bld) 0.3 % Critically low 0.9-7.0 [facility] Comment on above: Performed By: #### C BC ####[facility] Emnuakalnp248[address] [place], [place] [address]DrSkylar Leal Erythrocyte distribution width (RBC) [Ratio] 13.9 % Normal 11.0-15.0 [facility] Comment on above: Performed By: #### C BC ####[facility] Alslopqxfn83[address] [place], [place] [address]DrSkylar Leal Hematocrit (Bld) [Volume fraction] 27.3 % Critically low 42.0-54.0 [facility] Comment on above: Performed By: #### C BC ####[facility] Ngfsahaqli0782 [place] [address]DrSkylar Leal Hemoglobin (Bld) [Mass/Vol] 8.8 g/dL Critically low 14.0-18.0 [facility] Comment on above: Performed By: #### C BC ####[facility] Lbjhrhnxae625[address] [place], [place] [address]DrSkylar Leal IG # 0.17 10e3/ul Critically high 0.00-0.03 [facility] Comment on above: Performed By: #### C BC ####[facility] Dzhwniwwnu95280[address] [place], [place] [address]DrSkylar Leal IG % 1.2 % Critically high 0.0-0.5 [facility] Comment on above: Performed By: #### C BC ####[facility] Kmbzkmaawc198[address] [place], [place] [address]DrSkylar Leal LYMPH # 0.7 103/ul Critically low 1.2-3.8 [facility] Comment on above: Performed By: #### C BC ####[facility] Lzyhrqxjbv863[address] [place], [place] [address]DrSkylar Leal Lymphocytes/100 WBC (Bld) 4.8 % Critically low 20.5-60.0 [facility] Comment on above: Performed By: #### C BC ####[facility] Yhglocokux89[address] [place], [place] [address]DrSkylar Leal MANUAL DIFF REQ NO Normal [facility] Comment on above: Performed By: #### C BC ####[facility] Jhvnoeihwy027[address] [place], [place] [address]DrSkylar Leal MCH (RBC) [Entitic mass] 29.9 pg Normal 25.9-34.0 [facility] Comment on above: Performed By: #### C BC ####[facility] Ozbtftpqkx817[address] [place], [place] [address]DrSkylar Leal MCHC (RBC) [Mass/Vol] 32.2 g/dL Normal 29.9-35.2 [facility] Comment on above: Performed By: #### C BC ####[facility] Brjxktqtyr3221 [place] [address]DrSkylar Leal MCV (RBC) [Entitic vol] 92.9 fL Normal 80.0-94.0 [facility] Comment on above: Performed By: #### C BC ####[facility] Wrjxeoannr165[address] [place], [place] [address]DrSkylar Leal MONO # 1.3 103/ul Critically high 0.3-0.8 [facility] Comment on above: Performed By: #### C BC ####[facility] Gaudcsaggi[address] [place], [place] [address]DrSkylar Leal Monocytes/100 WBC (Bld) 9.6 % Normal 1.7-12.0 [facility] Comment on above: Performed By: #### C BC ####[facility] Sklznropeg[address] [place], [place] [address]DrSkylar Leal NEUT # 11.4 103/ul Critically high 1.4-6.5 [facility] Comment on above: Performed By: #### C BC ####[facility] Iuozaikmqi934[address] [place], [place] [address]DrSkylar Leal Neutrophils/100 WBC (Bld) 83.9 % Critically high 43.0-75.0 [facility] Comment on above: Performed By: #### C BC ####[facility] Esyzjbvwsw79[address] [place], [place] [address]DrSkylar Leal Platelet mean volume (Bld) [Entitic vol] 9.6 fL Normal 9.5-13.5 [facility] Comment on above: Performed By: #### C BC ####[facility] Xghbwfpbdk8[address] [place], [place] [address]DrSkylar Leal PLT 395 103/ul Normal 150-450 [facility] Comment on above: Performed By: #### C BC ####[facility] Srtkradatq[address] [place], [place] [address]DrSkylar Leal RBC 2.94 106/ul Critically low 4.70-6.10 [facility] Comment on above: Performed By: #### C BC ####[facility] Scpsblpcnd5956 [place] [address]Dr. Farhat Leal WBC 13.6 103/ul Critically high 4.0-11.0 [facility] Comment on above: Performed By: #### C BC ####[facility] Djkrudmuen0193 [place] [address]Dr. Farhat Leal CRPon 11-26-2021 CRP [Mass/Vol] mg/L Critically high <=1.[address] [facility] Comment on above: Performed By: #### B HEAD TELLER, CRP, CMP ####[facility] Lhiiuodbid7[address] [place], [place] [address]Dr. Farhat Leal PROF 14(COMP METB)on 022 Albumin [Mass/Vol] 1.5 g/dL Critically low 3.4-5.[address] [facility] Comment on above: Performed By: #### B HEAD TELLER, CRP, CMP ####[facility] Elqgnoftgz2109 [place] [address]Dr. Farhat Leal Albumin/Globulin [Mass ratio] 0.4 {ratio} Normal [facility] Comment on above: Performed By: #### B HEAD TELLER, CRP, CMP ####[facility] Mjobeigpwh6596 [place] [address]Dr. Farhat Leal ALP [Catalytic activity/Vol] 88 U/L Normal 46-116 [facility] Comment on above: Performed By: #### B HEAD TELLER, CRP, CMP ####[facility] Tpjzvkbjzp3591 [place] [address]Dr. Farhat Leal ALT [Catalytic activity/Vol] 29 U/L Normal 16-63 [facility] Comment on above: Performed By: #### B HEAD TELLER, CRP, CMP ####[facility] Qzmufqfxct3663 [place] [address]Dr. Farhat Leal Anion gap [Moles/Vol] 13.3 mmol/L Normal [facility] Comment on above: Performed By: #### B HEAD TELLER, CRP, CMP ####[facility] Ajmmjiuabu5086 [place] [address]Dr. Farhat Leal AST [Catalytic activity/Vol] 32 U/L Normal 15-37 [facility] Comment on above: Performed By: #### B HEAD TELLER, CRP, CMP ####[facility] Uwiruqqxuh6017 [place] [address]Dr. Farhat Leal Bilirubin [Mass/Vol] 0.6 mg/dL Normal 0.2-1.0 [facility] Comment on above: Performed By: #### B HEAD TELLER, CRP, CMP ####[facility] Lozkizdvts9295 [place] [address]Dr. Farhat Leal Calcium [Mass/Vol] 8.0 mg/dL Critically low 8.5-10.1 Th [facility] Comment on above: Performed By: #### B HEAD TELLER, CRP, CMP ####[facility] Kfqllbisxq34[address] [place], [place] [address]Dr. Farhat Leal Chloride [Moles/Vol] 98 mmol/L Normal 98-107 [facility] Comment on above: Performed By: #### B HEAD TELLER, CRP, CMP ####[facility] Nzwagoywjl297[address] [place], [place] [address]Dr. Farhat Leal CO2 [Moles/Vol] 23.7 mmol/L Normal 21.0-32.0 [facility] Comment on above: Performed By: #### B HEAD TELLER, CRP, CMP ####[facility] Wjlxkcmvku3977 [place] [address]Dr. Farhat Leal Creatinine [Mass/Vol] 2.08 mg/dL Critically high 0.70-1.30 [facility] Comment on above: Performed By: #### B HEAD TELLER, CRP, CMP ####[facility] Gprccvksvj45[address] [place], [place] [address]Dr. Farhat Leal EGFR-AF CYMRAES 38 mL/min/1.73m2 Critically low >=60 [facility] Comment on above: Performed By: #### B HEAD TELLER, CRP, CMP ####[facility] Ceyrltunih183[address] [place], [place] [address]Dr. Farhat Leal EGFR-NON AF CYMRAES 31 mL/min/1.73m2 Critically low >=60 [facility] Comment on above: Performed By: #### B HEAD TELLER, CRP, CMP ####[facility] Pceexzyplj5202 [place] [address]Dr. Farhat Leal Globulin (S) [Mass/Vol] 3.7 g/dL Normal [facility] Comment on above: Performed By: #### B HEAD TELLER, CRP, CMP ####[facility] Jfgvxoobwp4776 [place] [address]Dr. Farhat Leal Glucose [Mass/Vol] 315 mg/dL Critically high 74-106 [facility] [place] Comment on above: Performed By: #### B HEAD TELLER, CRP, CMP ####[facility] Rcdwszssvt013[address] [place], [place] [address]Dr. Farhat Leal Potassium [Moles/Vol] 4.0 mmol/L Normal 3.5-5.1 [facility] Comment on above: Performed By: #### B HEAD TELLER, CRP, CMP ####[facility] Sfngpmnaqi214[address] [place], [place] [address]Dr. Farhat Leal Protein [Mass/Vol] 5.2 g/dL Critically low 6.4-8.2 Th [facility] Comment on above: Performed By: #### B HEAD TELLER, CRP, CMP ####[facility] Stgtbwwfmz528[address] [place], [place] [address]Dr. Farhat Leal Sodium [Moles/Vol] 131 mmol/L Critically low 136-145 Th [facility] Comment on above: Performed By: #### B HEAD TELLER, CRP, CMP ####[facility] Idmpsuzqvh604[address] [place], [place] [address]Dr. Farhat Leal Urea nitrogen [Mass/Vol] 50.0 mg/dL Critically high 7.0-18.0 [facility] Comment on above: Performed By: #### B HEAD TELLER, CRP, CMP ####[facility] Yhiovcbdzi810[address] [place], [place] [address]Dr. Farhat Leal Urea nitrogen/Creatinine [Mass ratio] 24.0 mg/mg Normal [facility] Comment on above: Performed By: #### B HEAD TELLER, CRP, CMP ####[facility] Cdnjbhzaml9263 [place] [address]Dr. Farhat Leal PROTIMEon 11-26-2021 INR Coag (PPP) [Relative time] 1.31 {INR} Normal [facility] Comment on above: Performed By: #### P T ####[facility] Zoajuydzop5954 [place] [address]Dr. Farhat Leal INR GUIDELINES SEE BELOW Normal [facility] Comment on above: Result Comment: MALINA RED INR: 2.0 - 3.0 CONDITIONS NOT LISTED BELOW 2.5 - 3.5 FOR PROSTHETIC HEART VALVE REPLACEMENT 2.5 - 3.5 RECURRENT THROMBOSIS Performed By: #### P T ####[facility] Abxqbsngvr806[address] [place], [place] [address]Dr. Farhat Lela PT Coag (PPP) [Time] 13.9 s Critically high 9.0-11.6 [facility] Comment on above: Performed By: #### P T ####[facility] Irpejnkani95[address] [place], [place] [address]Dr. Farhat Leal SED RATE ALTADENAERGREN 2021 SED RATE 87 mm/hr Critically high <=20 [facility] Comment on above: Performed By: #### S EDR ####[facility] Gvotkrwdda054[address] [place], [place] [address]Dr. Farhat Leal BNPon 11-25-2021 Natriuretic peptide B (Bld) [Mass/Vol] 88893.0 pg/mL Critically high <=1,800.0 [facility] Comment on above: Performed By: #### C MP, BNP, CRP ####[facility] Nxkhjraaam07[address] [place], [place] [address]Dr. Farhat Leal CBC AUTO DIFFon 11-25-2021 BASO # 0.0 103/ul Normal 0.0-0.1 [facility] Comment on above: Performed By: #### C BC ####[facility] Rkrnmwyjkj50[address] [place], [place] [address]Dr. Farhat Leal Basophils/100 WBC (Bld) 0.4 % Normal 0.2-2.0 [facility] Comment on above: Performed By: #### C BC ####[facility] Zztyxmlvyy3305 [place] [id number]. Farhat Leal EO # 0.1 103/ul Normal 0.0-0.7 [facility] Comment on above: Performed By: #### C BC ####[facility] Onadqkjnwd2066 [place] [id number]. Farhat Leal Eosinophils/100 WBC (Bld) 1.2 % Normal 0.9-7.0 [facility] Comment on above: Performed By: #### C BC ####[facility] Lcouuebvit0873 [place] [address]Dr. Farhat Leal Erythrocyte distribution width (RBC) [Ratio] 13.7 % Normal 11.0-15.0 [facility] Comment on above: Performed By: #### C BC ####[facility] Tccenxiqkx804[address] [place], [place] [address]Dr. Farhat Leal Hematocrit (Bld) [Volume fraction] 29.6 % Critically low 42.0-54.0 [facility] Comment on above: Performed By: #### C BC ####[facility] Zlqthievmw[address] [place], [place] [address]Dr. Farhat Leal Hemoglobin (Bld) [Mass/Vol] 9.3 g/dL Critically low 14.0-18.0 [facility] Comment on above: Performed By: #### C BC ####[facility] Yabieblcgm[address] [place], [place] [address]Dr. Farhat Leal IG # 0.15 10e3/ul Critically high 0.00-0.03 [facility] Comment on above: Performed By: #### C BC ####[facility] Zfkdqqhrav445[address] [place], [place] [address]Dr. Farhat Leal IG % 1.4 % Critically high 0.0-0.5 [facility] Comment on above: Performed By: #### C BC ####[facility] Etjjysomal22[address] [place], [place] [address]DrSkylar Leal LYMPH # 0.8 103/ul Critically low 1.2-3.8 [facility] Comment on above: Performed By: #### C BC ####[facility] Dofcqlnrju6663 [place] [address]Dr. Farhat Leal Lymphocytes/100 WBC (Bld) 7.3 % Critically low 20.5-60.0 [facility] Comment on above: Performed By: #### C BC ####[facility] Igeniyxvyt6926 [place] [address]Dr. Farhat Leal MANUAL DIFF REQ NO Normal [facility] Comment on above: Performed By: #### C BC ####[facility] Krfvxulffd4135 [place] [address]Dr. Farhat Leal MCH (RBC) [Entitic mass] 29.3 pg Normal 25.9-34.0 [facility] Comment on above: Performed By: #### C BC ####[facility] Uoimplxkts663[address] [place], [place] [address]Dr. Farhat Leal MCHC (RBC) [Mass/Vol] 31.4 g/dL Normal 29.9-35.2 [facility] Comment on above: Performed By: #### C BC ####[facility] Aslfhvimwc339[address] [place], [place] [address]Dr. Farhat Leal MCV (RBC) [Entitic vol] 93.4 fL Normal 80.0-94.0 [facility] Comment on above: Performed By: #### C BC ####[facility] Smsnoiobzt5090 [place] [address]Dr. Farhat Leal MONO # 1.3 103/ul Critically high 0.3-0.8 [facility] Comment on above: Performed By: #### C BC ####[facility] Bccddkqdtl8370 [place] [address]Dr. Farhat Leal Monocytes/100 WBC (Bld) 12.3 % Critically high 1.7-12.0 [facility] Comment on above: Performed By: #### C BC ####[facility] Itzazhdtjj7089 [place] [address]Dr. Farhat Leal NEUT # 8.4 103/ul Critically high 1.4-6.5 [facility] Comment on above: Performed By: #### C BC ####[facility] Gakdgntgnt0845 [place] [address]Dr. Farhat Leal Neutrophils/100 WBC (Bld) 77.4 % Critically high 43.0-75.0 [facility] Comment on above: Performed By: #### C BC ####[facility] Wtuijcbeuc8143 [place] [address]Dr. Farhat Leal Platelet mean volume (Bld) [Entitic vol] 9.8 fL Normal 9.5-13.5 [facility] Comment on above: Performed By: #### C BC ####[facility] Vjsjnxzvkh7530 [place] [address]Dr. Farhat Leal PLT 390 103/ul Normal 150-450 [facility] Comment on above: Performed By: #### C BC ####[facility] Mpjzviqwsn[address] [place], [place] [address]Dr. Farhat Leal RBC 3.17 106/ul Critically low 4.70-6.10 [facility] Comment on above: Performed By: #### C BC ####[facility] Uxdrcczodi138[address] [place], [place] [address]Dr. Farhat Leal WBC 10.9 103/ul Normal 4.0-11.0 [facility] Comment on above: Performed By: #### C BC ####[facility] Przzgtrxtx[address] [place], [place] [address]Dr. Farhat Leal CRPon 11-25-2021 CRP 27.2 mg/dL Critically high <=1.0 [facility] Comment on above: Performed By: #### C MP, BNP, CRP ####[facility] Gjmx[address]oryqm[address] [place] [address]Dr. Farhat Leal PROF 14(COMP METB)on 022 Albumin [Mass/Vol] 1.5 g/dL Critically low 3.4-5.0 Th [facility] Comment on above: Performed By: #### C MP, BNP, CRP ####[facility] Bgyizfzfpc[address] [place] [address]Dr. Farhat Leal Albumin/Globulin [Mass ratio] 0.4 {ratio} Normal [facility] Comment on above: Performed By: #### C MP, BNP, CRP ####[facility] Vynjscdrgp037[address] [place] [address]Dr. Farhat Leal ALP [Catalytic activity/Vol] 86 U/L Normal 46-116 [facility] Comment on above: Performed By: #### C MP, BNP, CRP ####[facility] Euospbkrcz36[address] [place] [address]Dr. Madelynlorri Leal ALT [Catalytic activity/Vol] 34 U/L Normal 16-63 [facility] Comment on above: Performed By: #### C MP, BNP, CRP ####[facility] Osljqvnlpw[address] [place], [place] [address]Dr. Farhat Leal Anion gap [Moles/Vol] 17.8 mmol/L Normal [facility] Comment on above: Performed By: #### C MP, BNP, CRP ####[facility] Ksgbbiwhcj164[address] [place], [place] [address]Dr. Madelynlorri Leal AST [Catalytic activity/Vol] 48 U/L Critically high 15-37 [facility] Comment on above: Performed By: #### C MP, BNP, CRP ####[facility] Ioccrchzfp[address] [place], [place] [address]Dr. Madelynlorri Leal Bilirubin [Mass/Vol] 0.8 mg/dL Normal 0.2-1.0 [facility] Comment on above: Performed By: #### C MP, BNP, CRP ####[facility] Wjlxahtbck[address] [place], [place] [address]Dr. Farhat Leal Calcium [Mass/Vol] 8.3 mg/dL Critically low 8.5-10.[address] [facility] Comment on above: Performed By: #### C MP, BNP, CRP ####[facility] Euvcsvsbkb48350[address] [place], [place] [address]Dr. Farhat Leal Chloride [Moles/Vol] 97 mmol/L Critically low 98-107 [facility] Comment on above: Performed By: #### C MP, BNP, CRP ####[facility] Wbqiqcsrnt4[address] [place] [address]Dr. Farhat Leal CO2 [Moles/Vol] 23.0 mmol/L Normal 21.0-32.0 [facility] Comment on above: Performed By: #### C MP, BNP, CRP ####[facility] Xzfltqzjki5915 [place] [address]Dr. Farhat Leal Creatinine [Mass/Vol] 1.68 mg/dL Critically high 0.70-1.30 [facility] Comment on above: Performed By: #### C MP, BNP, CRP ####[facility] Kskffrpfjm[address] [place], [place] [address]Dr. Farhat Leal EGFR-AF CYMRAES 48 mL/min/1.73m2 Critically low >=60 [facility] Comment on above: Performed By: #### C MP, BNP, CRP ####[facility] Zkyjbszatl[address] [place], [place] [address]Dr. Farhat Leal EGFR-NON AF CYMRAES 40 mL/min/1.73m2 Critically low >=60 [facility] Comment on above: Performed By: #### C MP, BNP, CRP ####[facility] Bccpmqcgxv[address] [place], [place] [address]Dr. Farhat Leal Globulin (S) [Mass/Vol] 3.9 g/dL Normal [facility] Comment on above: Performed By: #### C MP, BNP, CRP ####[facility] Vejyepjxxz[address] [place], [place] [address]Dr. Farhat Leal Glucose [Mass/Vol] 282 mg/dL Critically high 74-106 T [place] Comment on above: Performed By: #### C MP, BNP, CRP ####[facility] Aewnwgaagb[address] [place], [place] [address]Dr. Farhat Leal Potassium [Moles/Vol] 4.8 mmol/L Normal 3.5-5.1 [facility] Comment on above: Performed By: #### C MP, BNP, CRP ####[facility] Xehvjcikqp[address] [place], [place] [address]Dr. Farhat Leal Protein [Mass/Vol] 5.4 g/dL Critically low 6.4-8.2 Th [facility] Comment on above: Performed By: #### C MP, BNP, CRP ####[facility] Ttwhllpufu[address] [place] [address]Dr. Farhat Leal Sodium [Moles/Vol] 133 mmol/L Critically low 136-145 Th [facility] Comment on above: Performed By: #### C MP, BNP, CRP ####[facility] Zwqhkmjrfu3488 [place] [address]Dr. Farhat Leal Urea nitrogen [Mass/Vol] 40.0 mg/dL Critically high 7.0-18.0 [facility] Comment on above: Performed By: #### C MP, BNP, CRP ####[facility] Tihnurljzd40[address] [place] [address]Dr. Farhat Leal Urea nitrogen/Creatinine [Mass ratio] 23.8 mg/mg Normal [facility] Comment on above: Performed By: #### C MP, BNP, CRP ####[facility] Cuuonzhzqq[address] [place], [place] [address]Dr. Farhat Leal PROTIMEon 11-25-2021 INR Coag (PPP) [Relative time] 1.48 {INR} Normal [facility] Comment on above: Performed By: #### P T ####[facility] Jvxqrondkt[address] [place], [place] [address]Dr. Farhat Leal INR GUIDELINES SEE BELOW Normal [facility] Comment on above: Result Comment: MALINA RED INR: 2.0 - 3.0 CONDITIONS NOT LISTED BELOW 2.5 - 3.5 FOR PROSTHETIC HEART VALVE REPLACEMENT 2.5 - 3.5 RECURRENT THROMBOSIS Performed By: #### P T ####[facility] Jooeghlrvy254[address] [place], [place] [address]Dr. Farhat Leal PT Coag (PPP) [Time] 15.6 s Critically high 9.0-11.6 [facility] Comment on above: Performed By: #### P T ####[facility] Zznaqhmasq[address] [place], [place] [address]Dr. Farhat Leal SED RATE WESTERGRENon 2021 SED RATE 76 mm/hr Critically high <=20 [facility] Comment on above: Performed By: #### S EDR ####[facility] Xuhwjhstuk[address] [place], [place] [address]Dr. Farhat Leal BNPon 11-24-2021 Natriuretic peptide B (Bld) [Mass/Vol] 30823.0 pg/mL Critically high <=1,800.0 [facility] Comment on above: Performed By: #### B HEAD TELLER, CMP, CRP ####[facility] Sthbabjivq025[address] [place], [place] [address]Dr. Farhat Leal CBC AUTO DIFFon 11-24-2021 BASO # 0.0 103/ul Normal 0.0-0.1 [facility] Comment on above: Performed By: #### C BC ####[facility] Pivpgftqrd[address] [place], [place] [address]Dr. Farhat Leal Basophils/100 WBC (Bld) 0.3 % Normal 0.2-2.0 [facility] Comment on above: Performed By: #### C BC ####[facility] Kkxmncjzxk[address] [place], [place] [address]Dr. Farhat Leal EO # 0.2 103/ul Normal 0.0-0.7 [facility] Comment on above: Performed By: #### C BC ####[facility] Zxroyvyhpn[address] [place], [place] [address]Dr. Farhat Leal Eosinophils/100 WBC (Bld) 1.2 % Normal 0.9-7.0 [facility] Comment on above: Performed By: #### C BC ####[facility] Muvbhavjnk398[address] [place], [place] [address]Dr. Farhat Leal Erythrocyte distribution width (RBC) [Ratio] 13.5 % Normal 11.0-15.0 [facility] Comment on above: Performed By: #### C BC ####[facility] Mlaspndecl[address] [place], [place] [address]Dr. Farhat Leal Hematocrit (Bld) [Volume fraction] 31.1 % Critically low 42.0-54.0 [facility] Comment on above: Performed By: #### C BC ####[facility] Bsipgcjakz7[address] [place] [phone]. Farhat Leal Hemoglobin (Bld) [Mass/Vol] 10.0 g/dL Critically low 14.0-18.0 [facility] Comment on above: Performed By: #### C BC ####[facility] Kyqlvyuyhw7[address] [place] [phone]. Farhat Leal IG # 0.13 10e3/ul Critically high 0.00-0.03 [facility] Comment on above: Performed By: #### C BC ####[facility] Arcithbjqc4075 [place] [phone]. Farhat Leal IG % 1.0 % Critically high 0.0-0.5 [facility] Comment on above: Performed By: #### C BC ####[facility] Mwuwowifxo5502 [place] [address]DrSkylar Farhat Leal LYMPH # 0.7 103/ul Critically low 1.2-3.8 [facility] Comment on above: Performed By: #### C BC ####[facility] Szsidudgho5774 [place] [address]Dr. Farhat Leal Lymphocytes/100 WBC (Bld) 4.9 % Critically low 20.5-60.0 [facility] Comment on above: Performed By: #### C BC ####[facility] Svmvplfmkz0534 [place] [address]Dr. Farhat Leal MANUAL DIFF REQ NO Normal [facility] Comment on above: Performed By: #### C BC ####[facility] Rtvtdndulv3605 [place] [phone]. Farhat Leal MCH (RBC) [Entitic mass] 29.6 pg Normal 25.9-34.0 [facility] Comment on above: Performed By: #### C BC ####[facility] Wuzszdjxqk8389 [place] [phone]. Farhat Leal MCHC (RBC) [Mass/Vol] 32.2 g/dL Normal 29.9-35.2 [facility] Comment on above: Performed By: #### C BC ####[facility] Tcuzacmopu65[address] [place] [phone]. Farhat Leal MCV (RBC) [Entitic vol] 92.0 fL Normal 80.0-94.0 [facility] Comment on above: Performed By: #### C BC ####[facility] Bhhsthhoyi39[address] [place] [phone] Farhat Leal MONO # 1.3 103/ul Critically high 0.3-0.8 [facility] Comment on above: Performed By: #### C BC ####[facility] Ovgmygyojy4888 [place] [phone]. Farhat Elvis Monocytes/100 WBC (Bld) 9.6 % Normal 1.7-12.0 [facility] Comment on above: Performed By: #### C BC ####[facility] Dqjpavhkda[address] [place], [place] [address]Dr. Farhat Leal NEUT # 11.2 103/ul Critically high 1.4-6.5 [facility] Comment on above: Performed By: #### C BC ####[facility] Swyfkuccaa4622 [place] [phone]. Farhat Elvis Neutrophils/100 WBC (Bld) 83.0 % Critically high 43.0-75.0 [facility] Comment on above: Performed By: #### C BC ####[facility] Szblwnpszg9994 [place] [phone]. Farhat Elvis Platelet mean volume (Bld) [Entitic vol] 9.5 fL Normal 9.5-13.5 [facility] Comment on above: Performed By: #### C BC ####[facility] Wyovfgdpqe3467 [place] [phone]. Farhat Elvis PLT 395 103/ul Normal 150-450 [facility] Comment on above: Performed By: #### C BC ####[facility] Jczuyagxai1053 [place] [phone] Leal RBC 3.38 106/ul Critically low 4.70-6.10 [facility] Comment on above: Performed By: #### C BC ####[facility] Y[address] [place], [place] [address]Di. Farhat Leal WBC 13.4 103/ul Critically high 4.0-11.0 [facility] Comment on above: Performed By: #### C BC ####[facility] R[address]rasfabgm04[address] [place], [place] [address]In. Farhat Leal CRPon 11-24-2021 CRP 27.8 mg/dL Critically high <=1.0 [facility] Comment on above: Performed By: #### B HEAD TELLER, CMP, CRP ####[facility] Th[address]ntbi[address] [place], [place] [address]Ma. Farhat Leal CULTURE ANAEROBICon 11-25-19 22 CULTURE ANAEROBIC Culture Observations : NO GROWTH OF ANAEROBES AT 72 HOURS. [facility] Comment on above: Performed By: #### A NACX ####[facility] Qmlsaikcmz8943 [place] [phone]. Farhat Leal CULTURE ANAEROBIC Culture Observations : NO GROWTH OF ANAEROBES AT 72 HOURS. [facility] Comment on above: Performed By: #### A NACX ####[facility] Isywibgsey8013 [place] [phone]. Farhat Leal CULTURE ANAEROBIC Culture Observations : No growth of anaerobes at 72 hours. [facility] Comment on above: Performed By: #### A NACX ####[facility] Jsyhewstkr6623 [place] [phone]. Farhat Leal CULTURE ANAEROBIC Culture Observations : No growth of anaerobes at 72 hours. [facility] Comment on above: Performed By: #### A NACX ####[facility] Efsovcczbl6125 [place] [phone]. Farhat Leal CULTURE URINEon 11-24-2021 CULTURE URINE Culture Observations : NO GROWTH. [facility] Comment on above: Performed By: #### U RCX ####[facility] Wshteqnthp8645 [place] [phone]. Farhat Leal ECHOCARDIO M/2D COMPLETEon 1 0-10-2022 ECHOCARDIO M/2D COMPLETE Normal [facility] ER URINE PROFILEon 2 Bilirubin Ql (U) Negative Normal NEGATIVE [facility] Comment on above: Performed By: #### E RUR ####[facility] Rupudutwvy344[address] [place], [place] [address]Dr. Farhat Leal Clarity (U) CLEAR Normal CLEAR [facility] Comment on above: Performed By: #### E RUR ####[facility] Tqkkozapgu9[address] [place], [place] [address]Dr. Farhat Leal Color (U) YELLOW Normal YELLOW [facility] Comment on above: Performed By: #### E RUR ####[facility] Mgxxkpiguz465[address] [place], [place] [address]Dr. Farhat Leal ERUAHD A micrscopic examination will be performed if indicated. Normal [facility] Comment on above: Performed By: #### E RUR ####[facility] Inrcrcfqyv974[address] [place], [place] [address]Dr. Farhat Leal Glucose Ql (U) Negative Normal NEGATIVE [facility] Comment on above: Performed By: #### E RUR ####[facility] Elefhlaqim396[address] [place], [place] [address]Dr. Farhat Leal Hemoglobin Ql (U) Negative Normal NEGATIVE [facility] Comment on above: Performed By: #### E RUR ####[facility] Djjapbyxzs913[address] [place], [place] [address]Dr. Farhat Leal Ketones Ql (U) TRACE Abnormal NEGATIVE [facility] Comment on above: Performed By: #### E RUR ####[facility] Thtxiujnfz747[address] [place], [place] [address]Dr. Farhat Leal LEUKOCYTES Negative Normal NEGATIVE [facility] Comment on above: Performed By: #### E RUR ####[facility] Ajgeldgtto170[address] [place], [place] [address]Dr. Farhat Leal Nitrite Ql (U) Negative Normal NEGATIVE [facility] Comment on above: Performed By: #### E RUR ####[facility] Mbwqiygsap136[address] [place], [place] [address]DrSkylar Lael pH (U) 5.5 [pH] Normal 5-9 [facility] Comment on above: Performed By: #### E RUR ####[facility] Jywhlqbpeg[address] [place], [place] [address]Dr. Farhat Leal SPEC GRAVITY 1.015 Normal 1.005-<=1.02 5 [facility] Comment on above: Performed By: #### E RUR ####[facility] Fyvfsbpjgp[address] [place], [place] [address]Dr. Farhat Leal UA PROTEIN Negative Normal NEGATIVE/ TRACE [facility] Comment on above: Performed By: #### E RUR ####[facility] Twqzjvsckk666[address] [place], [place] [address]Dr. Farhat Leal UR MICRO IND NOT INDICATED Normal [facility] Comment on above: Performed By: #### E RUR ####[facility] Xqxoeyrxcg7[address] [place], [place] [address]Dr. Farhat Leal Urobilinogen Qn (U) 0.2 {Boyd'U}/dL Normal 0.2 - 1. 0 [facility] Comment on above: Performed By: #### E RUR ####[facility] Rhzrracnao63[address] [place], [place] [address]Dr. Farhat Leal GRAM STAINon 11-24-2021 DIPHTHEROIDS Normal [facility] Comment on above: Performed By: #### G STAIN ####[facility] Kztxdkcdxf004[address] [place], [place] [address]Dr. Farhat Leal EPITHELIALS Normal [facility] Comment on above: Performed By: #### G STAIN ####[facility] Yyifrghwke32[address] [place], [place] [address]Dr. Farhat Leal FUNGAL ELEMENTS Normal [facility] Comment on above: Performed By: #### G STAIN ####[facility] Bqlequntic446[address] [place], [place] [address]Dr. Farhat Leal GRAM NEG BACILLI Normal [facility] Comment on above: Performed By: #### G STAIN ####[facility] Qsylmuwxqp8918[address] [place], [place] [address]Dr. Farhat Leal GRAM NEG DIPPLOCOCCI Normal [facility] Comment on above: Performed By: #### G STAIN ####[facility] Hvcupffuxe5[address] [place] [address]Dr. Farhat Leal GRAM POS BACILLI Normal [facility] Comment on above: Performed By: #### G STAIN ####[facility] Zauavcoqkh2994 [place] [address]Dr. Farhat Leal GRAM POSITIVE COCCI FEW Normal The [facility] Comment on above: Performed By: #### G STAIN ####[facility] Okzlraatne25[address] [place], [place] [address]Dr. Farhat Leal GRAM STAIN SOURCE RT ACHILLES TENDON Normal [facility] Comment on above: Performed By: #### G STAIN ####[facility] Lvrytwkbru8[address] [place], [place] [address]Dr. Farhat Lela GS_DIPTH Normal [facility] Comment on above: Performed By: #### G STAIN ####[facility] Uyfdfajtzf[address] [place], [place] [address]Dr. Farhat Leal WBC RARE Normal [facility] Comment on above: Performed By: #### G STAIN ####[facility] Kvsmrsdkhw[address] [place], [place] [address]Dr. Farhat Leal COMMENTS NO ORGANISMS OBSERVED Normal [facility] Comment on above: Performed By: #### G STAIN ####[facility] Ldvpbzkbhj99[address] [place], [place] [address]Dr. Farhat Leal DIPHTHEROIDS Normal [facility] Comment on above: Performed By: #### G STAIN ####[facility] Tajggehvwc3489 [place] [address]Dr. Farhat Leal EPITHELIALS Normal [facility] Comment on above: Performed By: #### G STAIN ####[facility] Snfoeonhvw[address] [place], [place] [address]Dr. Farhat Leal FUNGAL ELEMENTS Normal [facility] Comment on above: Performed By: #### G STAIN ####[facility] Zkhctxpkcp[address] [place], [place] [address]Dr. Farhat Leal GRAM NEG BACILLI Normal [facility] Comment on above: Performed By: #### G STAIN ####[facility] Czenxhsyws7583 [place] [phone]. Farhat Leal GRAM NEG DIPPLOCOCCI Normal [facility] Comment on above: Performed By: #### G STAIN ####[facility] Qhdjifmrkz4791 [place] [phone]. Farhat Leal GRAM POS BACILLI Normal [facility] Comment on above: Performed By: #### G STAIN ####[facility] Oopxwkcocg4277 [place] [address]Dr. Farhat Leal GRAM POSITIVE COCCI Normal [facility] Comment on above: Performed By: #### G STAIN ####[facility] Iwgwgajdnh4745 [place] [address]Dr. Farhat Leal GRAM STAIN SOURCE RT CALCANEOUS Normal [facility] Comment on above: Performed By: #### G STAIN ####[facility] Gppddcruoq[address] [place], [place] [address]Dr. Farhat Leal GS_DIPTH Normal [facility] Comment on above: Performed By: #### G STAIN ####[facility] Veybjjijri3759 [place] [address]Dr. Farhat Leal WBC RARE Normal [facility] Comment on above: Performed By: #### G STAIN ####[facility] Uupacxxvbd1037 [place] [address]Dr. Farhat Leal DIPHTHEROIDS Normal [facility] Comment on above: Performed By: #### G STAIN ####[facility] Ozqqmqstqc5967 [place] [address]Dr. Farhat Leal EPITHELIALS Normal [facility] Comment on above: Performed By: #### G STAIN ####[facility] Xwgpltbqhy5324 [place] [address]Dr. Farhat Leal FUNGAL ELEMENTS Normal [facility] Comment on above: Performed By: #### G STAIN ####[facility] Iuizpvtszn2870 [place] [address]Dr. Farhat Leal GRAM NEG BACILLI FEW Normal [facility] Comment on above: Performed By: #### G STAIN ####[facility] Vkcpxvqccn7280 [place] [phone]. Farhat Leal GRAM NEG DIPPLOCOCCI Normal [facility] Comment on above: Performed By: #### G STAIN ####[facility] Pnqxcnagoe8878 [place] [address]Dr. Farhat Leal GRAM POS BACILLI Normal [facility] Comment on above: Performed By: #### G STAIN ####[facility] Jqtzbookzx8291 [place] [address]Dr. Farhat Leal GRAM POSITIVE COCCI FEW Normal [facility] Comment on above: Performed By: #### G STAIN ####[facility] Vuhgblnsty4219 [place] [address]Dr. Farhat Leal GRAM STAIN SOURCE #2 Rt foot abscess Normal [facility] Comment on above: Performed By: #### G STAIN ####[facility] Fubndlqfvt1948 [place] [address]Dr. Farhat Leal GS_DIPTH Normal [facility] Comment on above: Performed By: #### G STAIN ####[facility] Xzkvwqgdxs[address] [place], [place] [address]Dr. Farhat Leal WBC RARE Normal [facility] Comment on above: Performed By: #### G STAIN ####[facility] Cnmkfgcdkj9295 [place] [address]Dr. Farhat Leal DIPHTHEROIDS Normal [facility] Comment on above: Performed By: #### G STAIN ####[facility] Xtvvumafyp8949 [place] [address]Dr. Farhat Leal EPITHELIALS Normal [facility] Comment on above: Performed By: #### G STAIN ####[facility] Xocpnwheyc5327 [place] [address]Dr. Farhat Leal FUNGAL ELEMENTS Normal [facility] Comment on above: Performed By: #### G STAIN ####[facility] [address]adthl[address] [place] [address]Dr. Farhat Leal GRAM NEG BACILLI FEW Normal [facility] Comment on above: Performed By: #### G STAIN ####[facility] Kyianktrzb[address] [place] [address]Dr. Farhat Leal GRAM NEG DIPPLOCOCCI Normal [facility] Comment on above: Performed By: #### G STAIN ####[facility] Spvdvznuux036[address] [place] [address]Dr. Farhat Leal GRAM POS BACILLI Normal [facility] Comment on above: Performed By: #### G STAIN ####[facility] Qrxhgcncez7[address] [place] [address]Dr. Farhat Leal GRAM POSITIVE COCCI FEW Normal [facility] Comment on above: Performed By: #### G STAIN ####[facility] Wwerzpiapz59[address] [place] [address]Dr. Farhat Leal GRAM STAIN SOURCE #1 Rt foot abscess Normal [facility] Comment on above: Performed By: #### G STAIN ####[facility] Bhqfzgdhgd[address] [place], [place] [address]Dr. Farhat Leal GS_DIPTH Normal [facility] Comment on above: Performed By: #### G STAIN ####[facility] Imzzddtufc[address] [place], [place] [address]Dr. Farhat Leal WBC NONE SEEN Normal [facility] Comment on above: Performed By: #### G STAIN ####[facility] Nvkywnsepm[address] [place], [place] [address]Dr. Farhat Leal POINT OF CARE GLUCOSEon 11-15 Glucose [Mass/Vol] 331 mg/dL Critically high 74-106 [facility] Comment on above: Performed By: #### P OCGLUC ####[facility] Tvewvecqfg[address] [place], [place] [address]Dr. Farhat Leal Glucose [Mass/Vol] 236 mg/dL Critically high 74-106 [facility] Comment on above: Performed By: #### P OCGLUC ####[facility] Pjlzdjamav[address] [place], [place] [address]Dr. Farhat Leal PROF 14(COMP METB)on 022 Albumin [Mass/Vol] 1.6 g/dL Critically low 3.4-5.0 Th [facility] Comment on above: Performed By: #### B HEAD TELLER, CMP, CRP ####[facility] Wfkotgwnos[address] [place] [address]Dr. Farhat Leal Albumin/Globulin [Mass ratio] 0.4 {ratio} Normal [facility] Comment on above: Performed By: #### B HEAD TELLER, CMP, CRP ####[facility] Esvbkznvpv1692 [place] [address]Dr. Farhat Leal ALP [Catalytic activity/Vol] 94 U/L Normal 46-116 [facility] Comment on above: Performed By: #### B HEAD TELLER, CMP, CRP ####[facility] Ymzosueyff[address] [place], [place] [address]Dr. Farhat Leal ALT [Catalytic activity/Vol] 49 U/L Normal 16-63 [facility] Comment on above: Performed By: #### B HEAD TELLER, CMP, CRP ####[facility] Hxyopervix[address] [place], [place] [address]Dr. Farhat Leal Anion gap [Moles/Vol] 12.5 mmol/L Normal [facility] Comment on above: Performed By: #### B HEAD TELLER, CMP, CRP ####[facility] Qduimzikpa015[address] [place], [place] [address]Dr. Farhat Leal AST [Catalytic activity/Vol] 102 U/L Critically high 15-37 [facility] Comment on above: Performed By: #### B HEAD TELLER, CMP, CRP ####[facility] Tbdfoeqwxd55[address] [place], [place] [address]Dr. Farhat Leal Bilirubin [Mass/Vol] 0.8 mg/dL Normal 0.2-1.0 [facility] Comment on above: Performed By: #### B HEAD TELLER, CMP, CRP ####[facility] Vcmcwwpfaf38[address] [place], [place] [address]Dr. Farhat Leal Calcium [Mass/Vol] 8.4 mg/dL Critically low 8.5-10.[address] [facility] Comment on above: Performed By: #### B HEAD TELLER, CMP, CRP ####[facility] Oorsensqxx078[address] [place], [place] [address]Dr. Farhat Leal Chloride [Moles/Vol] 96 mmol/L Critically low 98-107 [facility] Comment on above: Performed By: #### B HEAD TELLER, CMP, CRP ####[facility] Bfvosvweak3902 [place] [address]Dr. Farhat Leal CO2 [Moles/Vol] 24.8 mmol/L Normal 21.0-32.0 [facility] Comment on above: Performed By: #### B HEAD TELLER, CMP, CRP ####[facility] Ibdxpdhxnm9432 [place] [address]Dr. Farhat Leal Creatinine [Mass/Vol] 1.36 mg/dL Critically high 0.70-1.30 [facility] Comment on above: Performed By: #### B HEAD TELLER, CMP, CRP ####[facility] Haxdzkfsuy7[address] [place], [place] [address]Dr. Farhat Leal EGFR-AF CYMRAES >60 Normal >=60 [facility] Comment on above: Performed By: #### B HEAD TELLER, CMP, CRP ####[facility] Bpwxodewhg574[address] [place], [place] [address]Dr. Farhat Leal EGFR-NON AF CYMRAES 51 mL/min/1.73m2 Critically low >=60 [facility] Comment on above: Performed By: #### B HEAD TELLER, CMP, CRP ####[facility] Fmluptceef88[address] [place], [place] [address]Dr. Farhat Leal Globulin (S) [Mass/Vol] 4.1 g/dL Normal [facility] Comment on above: Performed By: #### B HEAD TELLER, CMP, CRP ####[facility] Batavvagbt274[address] [place], [place] [address]Dr. Farhat Leal Glucose [Mass/Vol] 204 mg/dL Critically high 74-106 [facility] [place] Comment on above: Performed By: #### B HEAD TELLER, CMP, CRP ####[facility] Twitmgpieq086[address] [place], [place] [address]Dr. Farhat Leal Potassium [Moles/Vol] 4.3 mmol/L Normal 3.5-5.1 [facility] Comment on above: Performed By: #### B HEAD TELLER, CMP, CRP ####[facility] Qztyneemsb[address] [place], [place] [address]Dr. Farhat Leal Protein [Mass/Vol] 5.7 g/dL Critically low 6.4-8.2 Th [facility] Comment on above: Performed By: #### B HEAD TELLER, CMP, CRP ####[facility] Vnblogdvqs8356 [place] [address]Dr. Farhat Leal Sodium [Moles/Vol] 129 mmol/L Critically low 136-145 Th [facility] Comment on above: Performed By: #### B HEAD TELLER, CMP, CRP ####[facility] Ipgybyisqz8071 [place] [address]Dr. Farhat Leal Urea nitrogen [Mass/Vol] 41.0 mg/dL Critically high 7.0-18.0 [facility] Comment on above: Performed By: #### B HEAD TELLER, CMP, CRP ####[facility] Zxcykgqeoz9046 [place] [address]Dr. Farhat Leal Urea nitrogen/Creatinine [Mass ratio] 30.1 mg/mg Normal [facility] Comment on above: Performed By: #### B HEAD TELLER, CMP, CRP ####[facility] Vioiwbofza[address] [place], [place] [address]Dr. Farhat Leal PROTIMEon 11-24-2021 INR Coag (PPP) [Relative time] 2.20 {INR} Normal [facility] Comment on above: Performed By: #### P T ####[facility] Uirlksjdez7[address] [place], [place] [address]Dr. Farhat Leal INR GUIDELINES SEE BELOW Normal [facility] Comment on above: Result Comment: MALINA RED INR: 2.0 - 3.0 CONDITIONS NOT LISTED BELOW 2.5 - 3.5 FOR PROSTHETIC HEART VALVE REPLACEMENT 2.5 - 3.5 RECURRENT THROMBOSIS Performed By: #### P T ####[facility] Tibkcrzmwr[address] [place], [place] [address]Dr. Farhat Leal PT Coag (PPP) [Time] 22.6 s Critically high 9.0-11.6 [facility] Comment on above: Performed By: #### P T ####[facility] Lfphmqkvlx[address] [place], [place] [address]Dr. Farhat Leal SED RATE WESTERGRENon 2021 SED RATE 80 mm/hr Critically high <=20 [facility] Comment on above: Performed By: #### S EDR ####[facility] Zvjihaqmpk36[address] [place] [phone]. Farhat Leal BLOOD CULTURE ID PANELon A. baumannii Not detected Normal NOT DETECTED [facility] Comment on above: Performed By: #### B CID2 ####[facility] Idrigvsvzj0135 [place] [phone]. Farhat Leal Bacteriodes fragilis Not detected Normal NOT DETECTED [facility] Comment on above: Performed By: #### B CID2 ####[facility] Qjvushkkhk2919 [place] [address]Dr. Farhat Elvis BCID CONTROLS PASSED Normal [facility] Comment on above: Performed By: #### B CID2 ####[facility] Uczfyenmvz9982 [place] [phone]. Madelynlorri Elvis BCIDBTHD BLOOD CULTURE BOTTLE INFORMATION Normal [facility] Comment on above: Performed By: #### B CID2 ####[facility] Tahztwrkzd9516 [place] [phone]. Farhat Leal BCIDHD1 ANTIMICROBIAL RESISTANCE GENES Normal [facility] Comment on above: Performed By: #### B CID2 ####[facility] Jsrfbuhmsj15[address] [place] [address]Dr. Farhat Leal BCIDHD2 SEE BELOW Normal [facility] Comment on above: Result Comment: Note : Antimicrobial resitance can occur via multiple mechanisms. A Not Detected result for the [employer] antomicrobial resistance gene assays does not indicate antimicrobial susceptibility. Subculturing is required for species identification and susceptibility testing of isolates. Performed By: #### B CID2 ####[facility] Wiyxbueakv[address] [place], [place] [address]Dr. Farhat Leal BCIDHD3 Positive Normal [facility] Comment on above: Performed By: #### B CID2 ####[facility] Dtdpxheytj6149 [place] [phone]. Farhat Leal BCIDHD4 Negative Normal [facility] Comment on above: Performed By: #### B CID2 ####[facility] Dbdypgngcw2650 [place] [address]Dr. Farhat Leal BCIDHD5 YEAST Normal [facility] Comment on above: Performed By: #### B CID2 ####[facility] Gtkrelifyh8756 [place] [address]Dr. Yilan Leal Bottle Set: Set 1 Normal [facility] Comment on above: Performed By: #### B CID2 ####[facility] Rxiksmvyqp7062 [place] [address]Dr. Farhat Leal Bottle: Aerobic Normal [facility] Comment on above: Performed By: #### B CID2 ####[facility] Vxbhrypcmc[address] [place], [place] [address]Dr. Farhat Leal C. neoformans/gattii Not detected Normal NOT DETECTED [facility] Comment on above: Performed By: #### B CID2 ####[facility] Saysdfrzmz245[address] [place], [place] [address]Dr. Yilorri Leal Disha albicans Not detected Normal NOT DETECTED [facility] Comment on above: Performed By: #### B CID2 ####[facility] Fqwoabcypj[address] [place], [place] [address]Dr. Farhat Leal Disha auris Not detected Normal NOT DETECTED [facility] Comment on above: Performed By: #### B CID2 ####[facility] Qdbdhxtfcg535[address] [place], [place] [address]Dr. Yilorri Leal Disha glabrata Not detected Normal NOT DETECTED The [facility] Comment on above: Performed By: #### B CID2 ####[facility] Rxegrouonk8744 [place] [address]Dr. Yilorri Leal Disha Krusei Not detected Normal NOT DETECTED The [facility] Comment on above: Performed By: #### B CID2 ####[facility] Pywnqafxxr7[address] [place], [place] [address]Dr. Yilorri Leal Disha Parapsilosis Not detected Normal NOT DETECTED The [facility] Comment on above: Performed By: #### B CID2 ####[facility] Eoojvajhhn[address] [place], [place] [address]Dr. Farhat Leal Disha Tropicalis Not detected Normal NOT DETECTED [facility] Comment on above: Performed By: #### B CID2 ####[facility] Swakexkwgg89[address] [place], [place] [address]Dr. Farhat Leal CTX-M Resistant Gene Not Applicable Normal NOT DETECTE D [facility] Comment on above: Performed By: #### B CID2 ####[facility] Jruliolzct917[address] [place], [place] [address]Dr. Farhat Leal E. Cloacae complex Not detected Normal NOT DETECTED [facility] Comment on above: Performed By: #### B CID2 ####[facility] Skmcxhjfdf38[address] [place], [place] [address]Dr. Farhat Leal E. faecalis Not detected Normal NOT DETECTED [facility] Comment on above: Performed By: #### B CID2 ####[facility] Qckefhtems225[address] [place], [place] [address]Dr. Farhat Leal E. faecium Not detected Normal NOT DETECTED [facility] Comment on above: Performed By: #### B CID2 ####[facility] Rgqhbccmmh[address] [place], [place] [address]Dr. Farhat Leal Enterobacteriaceae Not detected Normal NOT DETECTED [facility] Comment on above: Performed By: #### B CID2 ####[facility] Yisazurhre67[address] [place], [place] [address]Dr. Farhat Leal Escherichia coli Not detected Normal NOT DETECTED [facility] Comment on above: Performed By: #### B CID2 ####[facility] Howrhlzpon0317[address] [place], [place] [address]Dr. Farhat Leal H. influenzae Not detected Normal NOT DETECTED [facility] Comment on above: Performed By: #### B CID2 ####[facility] Yjvxjfjmjb077[address] [place], [place] [address]Dr. Farhat Leal IMP Resistant Gene Not Applicable Normal NOT DETECTED [facility] Comment on above: Performed By: #### B CID2 ####[facility] Vpflwgeopj065[address] [place], [place] [address]Dr. Farhat Leal K. oxytoca Not detected Normal NOT DETECTED [facility] Comment on above: Performed By: #### B CID2 ####[facility] Kxiewwkpfw0914 [place] [address]Dr. Farhat Leal K. pneumoniae Not detected Normal NOT DETECTED [facility] Comment on above: Performed By: #### B CID2 ####[facility] Wrwycvsvzt7686 [place] [phone]. Farhat Leal Klebsiella aerogenes Not detected Normal NOT DETECTED [facility] Comment on above: Performed By: #### B CID2 ####[facility] Hbpgyjcmaj69[address] [place], [place] [address]Dr. Farhat Leal KPC Resistant Gene Not Applicable Normal NOT DETECTED [facility] Comment on above: Performed By: #### B CID2 ####[facility] Vfwmqzevvp579[address] [place], [place] [address]Dr. Farhat Leal List. monocytogenes Not detected Normal NOT DETECTED [facility] Comment on above: Performed By: #### B CID2 ####[facility] Mctyshemhz[address] [place], [place] [address]Dr. Farhat Leal Mcr-1 Resistant Gene Not Applicable Normal NOT DETECTE D [facility] Comment on above: Performed By: #### B CID2 ####[facility] Kcsbuyziwo655[address] [place], [place] [address]Dr. Farhat Leal mecA/C Not Applicable Normal NOT DETECTED [facility] Comment on above: Performed By: #### B CID2 ####[facility] Pqmlerziea[address] [place] [address]Dr. Farhat Leal mecA/C MREJ Detected Abnormal NOT DETECTED [facility] Comment on above: Performed By: #### B CID2 ####[facility] Mlnygvovxq426[address] [place], [place] [address]Dr. Farhat Leal N. meningitidis Not detected Normal NOT DETECTED [facility] Comment on above: Performed By: #### B CID2 ####[facility] Ezcsaaagkf856[address] [place], [place] [address]Dr. Farhat Leal NDM Resistant Gene Not Applicable Normal NOT DETECTED [facility] Comment on above: Performed By: #### B CID2 ####[facility] Pjsstagkyz092[address] [place], [place] [address]Dr. Farhat Leal Oxa-48-like Not Applicable Normal NOT DETECTED [facility] Comment on above: Performed By: #### B CID2 ####[facility] Uercwazatf757[address] [place], [place] [address]Dr. Farhat Leal Proteus Not detected Normal NOT DETECTED [facility] Comment on above: Performed By: #### B CID2 ####[facility] Ufrlmebdyh049[address] [place], [place] [address]Dr. Farhat Leal Pseud. aeruginosa Not detected Normal NOT DETECTED [facility] Comment on above: Performed By: #### B CID2 ####[facility] Amxqcoyhbu135[address] [place], [place] [address]Dr. Farhat Leal S. maltophilia Not detected Normal NOT DETECTED The [facility] Comment on above: Performed By: #### B CID2 ####[facility] Qkzywgtgih085[address] [place], [place] [address]Dr. Farhat Leal Salmonella Not detected Normal NOT DETECTED [facility] Comment on above: Performed By: #### B CID2 ####[facility] Twupibpinn120[address] [place], [place] [address]Dr. Farhat Leal Seratia marcescens Not detected Normal NOT DETECTED [facility] Comment on above: Performed By: #### B CID2 ####[facility] Tezdmkfjlt435[address] [place], [place] [address]Dr. Farhat Leal Site: Rt Hand Normal [facility] Comment on above: Performed By: #### B CID2 ####[facility] Asatgsykca[address] [place], [place] [address]Dr. Farhat Leal Staph. aureus Detected Abnormal NOT DETECTED [facility] Comment on above: Performed By: #### B CID2 ####[facility] Baclmjksvc8[address] [place], [place] [address]Dr. Farhat Leal Staph. epidermidis Not detected Normal NOT DETECTED [facility] Comment on above: Performed By: #### B CID2 ####[facility] Vyrbmcbebz[address] [place], [place] [address]Dr. Farhat Leal Staph. lugdunensis Not detected Normal NOT DETECTED [facility] Comment on above: Performed By: #### B CID2 ####[facility] Nuzgpxmzdt645[address] [place], [place] [address]Dr. Farhat Leal Staphylococcus Detected Abnormal NOT DETECTED [facility] Comment on above: Performed By: #### B CID2 ####[facility] Vuxukahbzg064[address] [place], [place] [address]Dr. Farhat Leal Strep. agalactiae Not detected Normal NOT DETECTED [facility] Comment on above: Performed By: #### B CID2 ####[facility] Fktfqvcqtv41[address] [place], [place] [address]Dr. Farhat Leal Strep. pneumoniae Not detected Normal NOT DETECTED [facility] Comment on above: Performed By: #### B CID2 ####[facility] Xqesugfjlh119[address] [place], [place] [address]Dr. Farhat Leal Strep. pyogenes Not detected Normal NOT DETECTED [facility] Comment on above: Performed By: #### B CID2 ####[facility] Eenqimwtuy[address] [place], [place] [address]Dr. Farhat Leal Streptococcus Not detected Normal NOT DETECTED [facility] Comment on above: Performed By: #### B CID2 ####[facility] Cfpnbwhaok88[address] [place], [place] [address]Dr. Farhat Leal Teodoro/B Resist. Gene Not Applicable Normal NOT DETECTED [facility] Comment on above: Performed By: #### B CID2 ####[facility] Ofadtjxrxz989[address] [place], [place] [address]Dr. Farhat Leal VIM Resistant Gene Not Applicable Normal NOT DETECTED [facility] Comment on above: Performed By: #### B CID2 ####[facility] Lgygsihxjr449[address] [place], [place] [address]Dr. Farhat Leal BNPon 11-23-2021 Natriuretic peptide B (Bld) [Mass/Vol] 53604.0 pg/mL Critically high <=1,800.0 [facility] Comment on above: Performed By: #### C MP, CMADM, BNP ####[facility] Dubuhjixot[address] [place] [address]Dr. Farhat Leal CARDIAC AMANDA ADMITon 022 CK [Catalytic activity/Vol] 41 U/L Normal 39-308 [facility] Comment on above: Performed By: #### C MP, CMADM, BNP ####[facility] Oluidslbmv9644 [place] [address]Dr. Farhat Leal CK.MB [Mass/Vol] 0.98 ng/mL Normal <=3.60 [facility] Comment on above: Performed By: #### C MP, CMADM, BNP ####[facility] Qgyfgpgqqg8602 [place] [address]Dr. Farhat Leal HSTROP 30.1 pg/mL Normal 4.0-76.1 [facility] Comment on above: Result Comment: CUT- OFF POINTS HAVE BEEN ESTABLISHED BASED ON THE FOURTH UNIVERSAL DEFINITIONS OF MYOCARDIALINFARCTION. THE UPPER REFERENCE LIMIT (URL) OF TROPONIN, DEFINED THE 99TH PERCENTILE OFcTnI DISTRIBUTION IN A REFERENCE POPULATION, HAS BEEN CONFIRMED THE DECISION THRESHOLDFOR NV DIAGNOSIS. Performed By: #### C MP, CMADM, BNP ####[facility] Bffmdzcqox77[address] [place] [address]Dr. Madelynlorri Leal VALERIA 160 ng/mL Critically high 16-96 [facility] Comment on above: Performed By: #### C MP, CMADM, BNP ####[facility] Afcifyyptt3726 [place] [address]Dr. Farhat Elvis CBC AUTO DIFFon 11-23-2021 BASO # 0.0 103/ul Normal 0.0-0.1 [facility] Comment on above: Performed By: #### C BC ####[facility] Iqwzqcwuri[address] [place] [address]Dr. Farhat Leal Basophils/100 WBC (Bld) 0.2 % Normal 0.2-2.0 [facility] Comment on above: Performed By: #### C BC ####[facility] Ojvyuntwkv4129 [place] [address]Dr. Farhat Leal EO # 0.0 103/ul Normal 0.0-0.7 [facility] Comment on above: Performed By: #### C BC ####[facility] Patyxkeqxz9979 [place] [address]Dr. Farhat Leal Eosinophils/100 WBC (Bld) 0.1 % Critically low 0.9-7.0 [facility] Comment on above: Performed By: #### C BC ####[facility] Cwzsfyhgdg1801 [place] [address]Dr. Farhat Leal Erythrocyte distribution width (RBC) [Ratio] 13.4 % Normal 11.0-15.0 [facility] Comment on above: Performed By: #### C BC ####[facility] Cssrkabgis[address] [place], [place] [address]Dr. Farhat Leal Hematocrit (Bld) [Volume fraction] 31.6 % Critically low 42.0-54.0 [facility] Comment on above: Performed By: #### C BC ####[facility] Apsgposjwf769[address] [place], [place] [address]Dr. Farhat Leal Hemoglobin (Bld) [Mass/Vol] 10.4 g/dL Critically low 14.0-18.0 [facility] Comment on above: Performed By: #### C BC ####[facility] Cwqbhobzpc[address] [place], [place] [address]Dr. Farhat Leal IG # 0.11 10e3/ul Critically high 0.00-0.03 [facility] Comment on above: Performed By: #### C BC ####[facility] Kjgtojvtmt06[address] [place] [address]Dr. Farhat Leal IG % 0.7 % Critically high 0.0-0.5 The [facility] Comment on above: Performed By: #### C BC ####[facility] Dbqxdzexbj168[address] [place], [place] [address]Dr. Farhat Leal LYMPH # 0.5 103/ul Critically low 1.2-3.8 The [facility] Comment on above: Performed By: #### C BC ####[facility] Ezovimlsph8741 [place] [id number]. Farhat Elvis Lymphocytes/100 WBC (Bld) 2.8 % Critically low 20.5-60.0 [facility] Comment on above: Performed By: #### C BC ####[facility] Oeakfxioxd0067 [place] [address]Dr. Madelynlorri Leal MANUAL DIFF REQ NO Normal [facility] Comment on above: Performed By: #### C BC ####[facility] Olcvtywsao2980 [place] [address]Dr. Madelynlorri Leal MCH (RBC) [Entitic mass] 29.8 pg Normal 25.9-34.0 [facility] Comment on above: Performed By: #### C BC ####[facility] Pxfctlokur9[address] [place], [place] [address]Dr. Farhat Leal MCHC (RBC) [Mass/Vol] 32.9 g/dL Normal 29.9-35.2 [facility] Comment on above: Performed By: #### C BC ####[facility] Ynxlnkcrkn1789 [place] [address]Dr. Farhat Leal MCV (RBC) [Entitic vol] 90.5 fL Normal 80.0-94.0 [facility] Comment on above: Performed By: #### C BC ####[facility] Wpjneatewu8[address] [place], [place] [address]Dr. Farhat Leal MONO # 1.3 103/ul Critically high 0.3-0.8 [facility] Comment on above: Performed By: #### C BC ####[facility] Utsyegsesl4213 [place] [address]Dr. Farhat Leal Monocytes/100 WBC (Bld) 8.3 % Normal 1.7-12.0 [facility] Comment on above: Performed By: #### C BC ####[facility] Oiorpdmxpe377[address] [place], [place] [address]Dr. Farhat Leal NEUT # 13.9 103/ul Critically high 1.4-6.5 [facility] Comment on above: Performed By: #### C BC ####[facility] Phuptjmcmt[address] [place], [place] [address]Sy. Farhat Leal Neutrophils/100 WBC (Bld) 87.9 % Critically high 43.0-75.0 [facility] Comment on above: Performed By: #### C BC ####[facility] Vainlxxian[address]17 [place], [place] [address]Ws. Farhat Leal Platelet mean volume (Bld) [Entitic vol] 9.3 fL Critically low 9.5-13.5 [facility] Comment on above: Performed By: #### C BC ####[facility] Bectwmybiv8[address] [place], [place] [address]Bp. Farhat Leal PLT 390 103/ul Normal 150-450 [facility] Comment on above: Performed By: #### C BC ####[facility] Jquxqvewjt6839 [place], [place] [address]Bz. Farhat Leal RBC 3.49 106/ul Critically low 4.70-6.10 [facility] Comment on above: Performed By: #### C BC ####[facility] Rpwedeodmj1408 [place], [place] [address]It. Farhat Leal WBC 15.9 103/ul Critically high 4.0-11.0 [facility] Comment on above: Performed By: #### C BC ####[facility] Canbhgscff9[address] [place], [place] [address]Vx. Farhat Leal CT HEAD WO CONon 11-23-2021 CT HEAD WO CON Normal [facility] CULTURE BLOODon 11-23-2021 Microscopic examination of blood, culture Culture Observations: NO GROWTH AT 5 DAYS. Normal [facility] Comment on above: Performed By: #### B LDCX2 ####[facility] Whyvkmexic9154 [place] [id number]. Farhat Leal Covid-19 PCR ([facility])on SARS-CoV-2 (COVID-19) RNA JOSH+probe Ql (Unsp spec) Not detected Normal NOT DETECTED [facility] Comment on above: Result Comment: When diagnostic [...] for this test is supported by the [place] of Health and Human Service's declaration that [...] be used). Performed By: #### C VDTBH ####[facility] Qemslttbke[address] [place], [place] [address]DrSkylar Leal LACTATE/LACTIC ACIDon 2021 Lactate [Moles/Vol] 1.3 mmol/L Normal 0.4-1.[address] [facility] Comment on above: Performed By: #### L ACT ####[facility] Hcewptdilb[address] [place], [place] [address]DrSkylar Leal Lactate [Moles/Vol] 1.3 mmol/L Normal 0.4-1.[address] [facility] Comment on above: Performed By: #### L ACT ####[facility] Vdvavstdsp066[address] [place], [place] [address]DrSkylar Leal POINT OF CARE GLUCOSEon Glucose [Mass/Vol] 252 mg/dL Critically high 74-106 T [place] Comment on above: Performed By: #### P OCGLUC ####[facility] Kcjclefmbk[address] [place], [place] [address]DrSkylar Leal PROF 14(COMP METB)on 022 Albumin [Mass/Vol] 1.6 g/dL Critically low 3.4-5.[address] [facility] Comment on above: Performed By: #### C MP, CMADM, BNP ####[facility] Wfugfomwot[address] [place], [place] [address]DrSkylar Leal Albumin/Globulin [Mass ratio] 0.4 {ratio} Normal [facility] Comment on above: Performed By: #### C FATMATA MARROQUINDM, BNP ####[facility] Fzryubdiei9795 [place] [address]Dr. Farhat Leal ALP [Catalytic activity/Vol] 98 U/L Normal 46-116 [facility] Comment on above: Performed By: #### C MP CMADM, BNP ####[facility] Hpeqpuwglz4655 [place] [address]Dr. Farhat Leal ALT [Catalytic activity/Vol] 52 U/L Normal 16-63 [facility] Comment on above: Performed By: #### C CARA CMADM, BNP ####[facility] Hwbetcgaww5302 [place] [address]Dr. Madelynlorri Elvis Anion gap [Moles/Vol] 9.8 mmol/L Normal [facility] Comment on above: Performed By: #### C CARA CMADM, BNP ####[facility] Acxpeuhajg5383 [place] [address]Dr. Farhat Leal AST [Catalytic activity/Vol] 122 U/L Critically high 15-37 [facility] Comment on above: Performed By: #### C CARA CMADM, BNP ####[facility] Ymefwimyje4309 [place] [address]Dr. Farhat Elvis Bilirubin [Mass/Vol] 0.7 mg/dL Normal 0.2-1.0 [facility] Comment on above: Performed By: #### C CARA CMADM, BNP ####[facility] Votlkdugbl7760 [place] [address]Dr. Farhat Elvis Calcium [Mass/Vol] 8.6 mg/dL Normal 8.5-10.1 [facility] Comment on above: Performed By: #### C MP CMADM, BNP ####[facility] Vsarqycalc5328 [place] [address]Dr. Farhat Leal Chloride [Moles/Vol] 95 mmol/L Critically low 98-107 [facility] Comment on above: Performed By: #### C CARA CMADM, BNP ####[facility] Ijcvakjato9509 [place] [address]Dr. Farhat Leal CO2 [Moles/Vol] 29.6 mmol/L Normal 21.0-32.0 [facility] Comment on above: Performed By: #### C MP, CMADM, BNP ####[facility] Shxyqefljc5303 [place] [address]Dr. Farhat Leal Creatinine [Mass/Vol] 1.49 mg/dL Critically high 0.70-1.30 [facility] Comment on above: Performed By: #### C MP, CMADM, BNP ####[facility] Yypuledsfg5318 [place] [address]Dr. Farhat Leal EGFR-AF CYMRAES 55 mL/min/1.73m2 Critically low >=60 [facility] Comment on above: Performed By: #### C MP, CMADM, BNP ####[facility] Nazrwgfemk3961 [place] [address]Dr. Farhat Leal EGFR-NON AF CYMRAES 46 mL/min/1.73m2 Critically low >=60 [facility] Comment on above: Performed By: #### C MP, CMADM, BNP ####[facility] Fvbemlncmw294[address] [place], [place] [address]Dr. Farhat Leal Globulin (S) [Mass/Vol] 4.3 g/dL Normal [facility] Comment on above: Performed By: #### C MP, CMADM, BNP ####[facility] Fjxkfgrvdn8148 [place] [address]Dr. Farhat Leal Glucose [Mass/Vol] 213 mg/dL Critically high 74-106 T [place] Comment on above: Performed By: #### C MP, CMADM, BNP ####[facility] Rlgbnxlzii537[address] [place], [place] [address]Dr. Farhat Leal Potassium [Moles/Vol] 4.4 mmol/L Normal 3.5-5.1 [facility] Comment on above: Performed By: #### C MP, CMADM, BNP ####[facility] Ugcbecnwmz7317 [place] [address]Dr. Farhat Leal Protein [Mass/Vol] 5.9 g/dL Critically low 6.4-8.2 Th [facility] Comment on above: Performed By: #### C MP, CMADM, BNP ####[facility] Ykswvkvogg6928 [place] [address]Dr. Farhat Leal Sodium [Moles/Vol] 130 mmol/L Critically low 136-145 Th [facility] Comment on above: Performed By: #### C MP, CMADM, BNP ####[facility] Epqlxnmije650[address] [place], [place] [address]Dr. Farhat Leal Urea nitrogen [Mass/Vol] 46.0 mg/dL Critically high 7.0-18.0 [facility] Comment on above: Performed By: #### C MP, CMADM, BNP ####[facility] Ahqkyyatdl64[address] [place], [place] [address]Dr. Farhat Leal Urea nitrogen/Creatinine [Mass ratio] 30.9 mg/mg Normal [facility] Comment on above: Performed By: #### C MP, CMADM, BNP ####[facility] Vnwkrywwum[address] [place], [place] [address]Dr. Farhat Leal PROTIMEon 11-23-2021 INR Coag (PPP) [Relative time] 2.55 {INR} Normal [facility] Comment on above: Performed By: #### P TT, PT ####[facility] Rxiwcgiydr64[address] [place], [place] [address]Dr. Farhat Leal INR GUIDELINES SEE BELOW Normal [facility] Comment on above: Result Comment: MALINA RED INR: 2.0 - 3.0 CONDITIONS NOT LISTED BELOW 2.5 - 3.5 FOR PROSTHETIC HEART VALVE REPLACEMENT 2.5 - 3.5 RECURRENT THROMBOSIS Performed By: #### P TT, PT ####[facility] Kmesxldgho258[address] [place], [place] [address]Dr. Farhat Leal PT Coag (PPP) [Time] 25.9 s Critically high 9.0-11.6 [facility] Comment on above: Performed By: #### P TT, PT ####[facility] Imvbjjipkd268[address] [place], [place] [address]Dr. Farhat Leal PTTon 11-23-2021 aPTT Coag (Bld) [Time] 39.9 s Critically high 22.3-36. 2 [facility] Comment on above: Performed By: #### P TT, PT ####[facility] Hifcioutup05[address] [place], [place] [address]Dr. Farhat Leal XR CHEST 1 Von 11-23-2021 XR CHEST 1 V Normal [facility] XR HEEL RT 2Von 11-23-2021 XR HEEL RT 2V Normal [facility] XR FOOT RT MIN 3 VIEWSon XR FOOT RT MIN 3 VIEWS Normal [facility] US ARTERY LEG RTon US ARTERY LEG RT Normal [facility] CBC AUTO DIFFon 09-24-2021 BASO # 0.1 103/ul Normal 0.0-0.1 [facility] Comment on above: Performed By: #### C BC ####[facility] Plvupwidct910[address] [place], [place] [address]Dr. Farhat Leal Basophils/100 WBC (Bld) 0.7 % Normal 0.2-2.0 [facility] Comment on above: Performed By: #### C BC ####[facility] Pyerjsqovm685[address] [place], [place] [address]DrSkylar Leal EO # 0.3 103/ul Normal 0.0-0.7 [facility] Comment on above: Performed By: #### C BC ####[facility] Mkldkchvdg736[address] [place], [place] [address]DrSkylar Leal Eosinophils/100 WBC (Bld) 3.9 % Normal 0.9-7.0 [facility] Comment on above: Performed By: #### C BC ####[facility] Auhqvilmep058[address] [place], [place] [address]DrSkylar Leal Erythrocyte distribution width (RBC) [Ratio] 12.6 % Normal 11.0-15.0 [facility] Comment on above: Performed By: #### C BC ####[facility] Iedwfzslgc228[address] [place], [place] [address]DrSkylar Leal Hematocrit (Bld) [Volume fraction] 38.9 % Critically low 42.0-54.0 [facility] Comment on above: Performed By: #### C BC ####[facility] Gczgwsorqq4315 [place] [address]DrSkylar Farhat Elvis Hemoglobin (Bld) [Mass/Vol] 12.8 g/dL Critically low 14.0-18.0 [facility] Comment on above: Performed By: #### C BC ####[facility] Jtghmkzujh[address] [place], [place] [address]DrSkylar Leal IG # 0.10 10e3/ul Critically high 0.00-0.03 [facility] Comment on above: Performed By: #### C BC ####[facility] Yqzuwuskyc972[address] [place], [place] [address]DrSkylar Leal IG % 1.2 % Critically high 0.0-0.5 [facility] Comment on above: Performed By: #### C BC ####[facility] Puceougkni3812[address] [place], [place] [address]DrSkylar Leal LYMPH # 2.1 103/ul Normal 1.2-3.8 [facility] Comment on above: Performed By: #### C BC ####[facility] Qkwvbmtbax29[address] [place], [place] [address]DrSkylar Leal Lymphocytes/100 WBC (Bld) 25.9 % Normal 20.5-60.0 [facility] Comment on above: Performed By: #### C BC ####[facility] Uhjbwlzbxp723[address] [place], [place] [address]DrSkylar Leal MANUAL DIFF REQ NO Normal [facility] Comment on above: Performed By: #### C BC ####[facility] Rujzsbigju708[address] [place], [place] [address]DrSkylar Leal MCH (RBC) [Entitic mass] 31.1 pg Normal 25.9-34.0 [facility] Comment on above: Performed By: #### C BC ####[facility] Anvsljjavo[address] [place], [place] [address]DrSkylar Leal MCHC (RBC) [Mass/Vol] 32.9 g/dL Normal 29.9-35.2 [facility] Comment on above: Performed By: #### C BC ####[facility] Vvpgrzobpf0497 [place] [address]Dr. Farhat Leal MCV (RBC) [Entitic vol] 94.6 fL Critically high 80.0-94.0 [facility] Comment on above: Performed By: #### C BC ####[facility] Lwesrkdvzi644[address] [place], [place] [address]Dr. Farhat Leal MONO # 1.2 103/ul Critically high 0.3-0.8 [facility] Comment on above: Performed By: #### C BC ####[facility] Hvgtgukaac159[address] [place], [place] [address]Dr. Farhat Leal Monocytes/100 WBC (Bld) 14.1 % Critically high 1.7-12.0 [facility] Comment on above: Performed By: #### C BC ####[facility] Mxlhenvdgc999[address] [place], [place] [address]Dr. Farhat Leal NEUT # 4.4 103/ul Normal 1.4-6.5 [facility] Comment on above: Performed By: #### C BC ####[facility] Lalaextqpm344[address] [place], [place] [address]Dr. Farhat Leal Neutrophils/100 WBC (Bld) 54.2 % Normal 43.0-75.0 [facility] Comment on above: Performed By: #### C BC ####[facility] Eelcucbhhj286[address] [place], [place] [address]Dr. Farhat Leal Platelet mean volume (Bld) [Entitic vol] 9.9 fL Normal 9.5-13.5 [facility] Comment on above: Performed By: #### C BC ####[facility] Sxvtuklrez724[address] [place], [place] [address]Dr. Farhat Leal PLT 224 103/ul Normal 150-450 [facility] Comment on above: Performed By: #### C BC ####[facility] Wqdmiatmfb7415[address] [place], [place] [address]Dr. Farhat Leal RBC 4.11 106/ul Critically low 4.70-6.10 [facility] Comment on above: Performed By: #### C BC ####[facility] Kqnvvggowr0491 [place] [address]Dr. Farhat Elvis WBC 8.2 103/ul Normal 4.0-11.0 [facility] Comment on above: Performed By: #### C BC ####[facility] Ymyaliddvv799[address] [place], [place] [address]Dr. Farhat Leal PROF CHEM 8 (BAS METB)on Anion gap [Moles/Vol] 9.6 mmol/L Normal [facility] Comment on above: Performed By: #### B MP ####[facility] Xwfphmhtij068[address] [place], [place] [address]Dr. Farhat Leal Calcium [Mass/Vol] 8.6 mg/dL Normal 8.5-10.1 [facility] Comment on above: Performed By: #### B MP ####[facility] Mqwhnsqhem724[address] [place], [place] [address]Dr. Farhat Leal Chloride [Moles/Vol] 94 mmol/L Critically low 98-107 [facility] Comment on above: Performed By: #### B MP ####[facility] Kkwlyusegx0399[address] [place], [place] [address]Dr. Farhat Leal CO2 [Moles/Vol] 28.1 mmol/L Normal 21.0-32.0 [facility] Comment on above: Performed By: #### B MP ####[facility] Kngsktsezq154[address] [place], [place] [address]Dr. Farhat Leal Creatinine [Mass/Vol] 1.91 mg/dL Critically high 0.70-1.30 [facility] Comment on above: Performed By: #### B MP ####[facility] Jmrothhuam090[address] [place], [place] [address]Dr. Farhat Leal EGFR-AF CYMRAES 42 mL/min/1.73m2 Critically low >=60 [facility] Comment on above: Performed By: #### B MP ####[facility] Xuiljzqkqw9596 [place] [address]Dr. Madelynlorri Elvis EGFR-NON AF CYMRAES 34 mL/min/1.73m2 Critically low >=60 [facility] Comment on above: Performed By: #### B MP ####[facility] Hzfpdtsdqg1416[address] [place], [place] [address]Dr. Farhat Leal Glucose [Mass/Vol] 314 mg/dL Critically high 74-106 T [place] Comment on above: Performed By: #### B MP ####[facility] Mttutvlehz[address] [place], [place] [address]Dr. Farhat Leal Potassium [Moles/Vol] 4.7 mmol/L Normal 3.5-5.1 [facility] Comment on above: Performed By: #### B MP ####[facility] Uqdetvymxx408[address] [place], [place] [address]Dr. Farhat Leal Sodium [Moles/Vol] 127 mmol/L Critically low 136-145 Th [facility] Comment on above: Performed By: #### B MP ####[facility] Adfljcaoqs8613[address] [place], [place] [address]Dr. Farhat Leal Urea nitrogen [Mass/Vol] 79.0 mg/dL Critically high 7.0-18.0 [facility] Comment on above: Result Comment: repe ated Performed By: #### B MP ####[facility] Wgoujsevdq45[address] [place], [place] [address]Dr. Farhat Leal Urea nitrogen/Creatinine [Mass ratio] 41.4 mg/mg Normal [facility] Comment on above: Performed By: #### B MP ####[facility] Fzqyglkyso9[address] [place], [place] [address]Dr. Farhat Leal PTT HEPARIN MONITORon 2021 aPTT Coag (Bld) [Time] 42.7 s Normal 39.5-54.[address] [facility] Comment on above: Performed By: #### P TTHEP ####[facility] Ndgyndnhaa9799[address] [place], [place] [address]Dr. Farhat Leal aPTT Coag (Bld) [Time] 56.7 s Critically high 39.5-54. 2 [facility] Comment on above: Performed By: #### P TTHEP ####[facility] Tazmayagtc[address] [place], [place] [address]Dr. Farhat Leal CBC AUTO DIFFon 09-23-2021 BASO # 0.1 103/ul Normal 0.0-0.1 [facility] Comment on above: Performed By: #### C BC ####[facility] Ldybjqlalm92[address] [place], [place] [address]Dr. Farhat Leal Basophils/100 WBC (Bld) 0.6 % Normal 0.2-2.0 [facility] Comment on above: Performed By: #### C BC ####[facility] Hpypypnuko[address] [place], [place] [address]Dr. Farhat Leal EO # 0.2 103/ul Normal 0.0-0.7 [facility] Comment on above: Performed By: #### C BC ####[facility] Jcwmqeytpp516[address] [place], [place] [address]Dr. Farhat Leal Eosinophils/100 WBC (Bld) 2.6 % Normal 0.9-7.0 [facility] Comment on above: Performed By: #### C BC ####[facility] Rzthcvmezi918[address] [place], [place] [address]Dr. Farhat Leal Erythrocyte distribution width (RBC) [Ratio] 12.4 % Normal 11.0-15.0 [facility] Comment on above: Performed By: #### C BC ####[facility] Jgfkjpeofm227[address] [place], [place] [address]Dr. Farhat Leal Hematocrit (Bld) [Volume fraction] 38.4 % Critically low 42.0-54.0 [facility] Comment on above: Performed By: #### C BC ####[facility] Skiuyqmwwa7215[address] [place], [place] [address]Dr. Farhat Leal Hemoglobin (Bld) [Mass/Vol] 12.8 g/dL Critically low 14.0-18.0 [facility] Comment on above: Performed By: #### C BC ####[facility] Kpshkkiqcd[address] [place], [place] [address]DrSkylar Leal IG # 0.06 10e3/ul Critically high 0.00-0.03 [facility] Comment on above: Performed By: #### C BC ####[facility] Qelwvguyyz9310 [place] [address]DrSkylar Leal IG % 0.8 % Critically high 0.0-0.5 [facility] Comment on above: Performed By: #### C BC ####[facility] Vvfehrrlvn2870 [place] [address]DrSkylar Leal LYMPH # 1.5 103/ul Normal 1.2-3.8 [facility] Comment on above: Performed By: #### C BC ####[facility] Ssbfxzltuz8690 [place] [address]DrSkylar Leal Lymphocytes/100 WBC (Bld) 19.7 % Critically low 20.5-60.0 [facility] Comment on above: Performed By: #### C BC ####[facility] Eyaydiapvh78[address] [place], [place] [address]DrSkylar Leal MANUAL DIFF REQ NO Normal [facility] Comment on above: Performed By: #### C BC ####[facility] Fudemykbci[address] [place], [place] [address]DrSkylar Leal MCH (RBC) [Entitic mass] 31.6 pg Normal 25.9-34.0 [facility] Comment on above: Performed By: #### C BC ####[facility] Kvfyfrrcbi2236 [place] [address]DrSkylar Leal MCHC (RBC) [Mass/Vol] 33.3 g/dL Normal 29.9-35.2 [facility] Comment on above: Performed By: #### C BC ####[facility] Yzcevtpcfv[address] [place], [place] [address]DrSkylar Leal MCV (RBC) [Entitic vol] 94.8 fL Critically high 80.0-94.0 [facility] Comment on above: Performed By: #### C BC ####[facility] Afjldyomjb376[address] [place], [place] [address]Dr. Farhat Leal MONO # 1.0 103/ul Critically high 0.3-0.8 [facility] Comment on above: Performed By: #### C BC ####[facility] [address]eszjpxph35[address] [place] [id number]. Farhat Leal Monocytes/100 WBC (Bld) 13.0 % Critically high 1.7-12.0 [facility] Comment on above: Performed By: #### C BC ####[facility] Wtnvwadyji0672 [place] [id number]. Farhat Leal NEUT # 4.9 103/ul Normal 1.4-6.5 [facility] Comment on above: Performed By: #### C BC ####[facility] Dtnqcwrovz5017 [place] [id number] Farhat Leal Neutrophils/100 WBC (Bld) 63.3 % Normal 43.0-75.0 [facility] Comment on above: Performed By: #### C BC ####[facility] Mwbsptzusd[address] [place], [place] [address]Dr. Farhat Leal Platelet mean volume (Bld) [Entitic vol] 10.7 fL Normal 9.5-13.5 [facility] Comment on above: Performed By: #### C BC ####[facility] Zhrcekizja[address] [place], [place] [id number]. Farhat Leal PLT 205 103/ul Normal 150-450 [facility] Comment on above: Performed By: #### C BC ####[facility] Fslcfvljuw5389 [place] [id number]. Farhat Leal RBC 4.05 106/ul Critically low 4.70-6.10 [facility] Comment on above: Performed By: #### C BC ####[facility] Bqahcjokni5142 [place] [id number] Farhat Leal WBC 7.7 103/ul Normal 4.0-11.0 [facility] Comment on above: Performed By: #### C BC ####[facility] Lgpvxnsebg756[address] [place], [place] [address]DrSkylar Leal PROF CHEM 8 (BAS METB)on Anion gap [Moles/Vol] 15.5 mmol/L Normal [facility] Comment on above: Performed By: #### B MP ####[facility] Lallwvwmqb196[address] [place], [place] [address]Dr. Madelynlorri Leal Calcium [Mass/Vol] 9.1 mg/dL Normal 8.5-10.1 [facility] Comment on above: Performed By: #### B MP ####[facility] Dxibzgqjym687[address] [place], [place] [address]Dr. Farhat Leal Chloride [Moles/Vol] 92 mmol/L Critically low 98-107 [facility] Comment on above: Performed By: #### B MP ####[facility] Ijrkgohgmd589[address] [place], [place] [address]Dr. Farhat Leal CO2 [Moles/Vol] 28.5 mmol/L Normal 21.0-32.0 [facility] Comment on above: Performed By: #### B MP ####[facility] Iazesmogkh900[address] [place], [place] [address]Dr. Farhat Leal Creatinine [Mass/Vol] 1.84 mg/dL Critically high 0.70-1.30 [facility] Comment on above: Performed By: #### B MP ####[facility] Dckaiwvkzb99340[address] [place], [place] [address]Dr. Farhat Leal EGFR-AF CYMRAES 44 mL/min/1.73m2 Critically low >=60 [facility] Comment on above: Performed By: #### B MP ####[facility] Cxirgyknvc465807 [address] [place], [place] [address]Dr. Farhat Leal EGFR-NON AF CYMRAES 36 mL/min/1.73m2 Critically low >=60 [facility] Comment on above: Performed By: #### B MP ####[facility] Mimdrkuyqt158[address] [place], [place] [address]Dr. Farhat Leal Glucose [Mass/Vol] 267 mg/dL Critically high 74-106 T [place] Comment on above: Performed By: #### B MP ####[facility] Dcvguawqph957607 [address] [place], [place] [address]Dr. Farhat Leal Potassium [Moles/Vol] 5.0 mmol/L Normal 3.5-5.1 [facility] Comment on above: Performed By: #### B MP ####[facility] Qyluhstdkr044[address] [place], [place] [address]Dr. Farhat Leal Sodium [Moles/Vol] 131 mmol/L Critically low 136-145 Th [facility] Comment on above: Performed By: #### B MP ####[facility] Blwzkthwrl4416[address] [place], [place] [address]Dr. Farhat Leal Urea nitrogen [Mass/Vol] 76.0 mg/dL Critically high 7.0-18.0 [facility] Comment on above: Performed By: #### B MP ####[facility] Iiqepitcgb904[address] [place], [place] [address]Dr. Farhat Leal Urea nitrogen/Creatinine [Mass ratio] 41.3 mg/mg Normal [facility] Comment on above: Performed By: #### B MP ####[facility] Czeeenhfsu156[address] [place], [place] [address]Dr. Farhat Leal PTT HEPARIN MONITORon 2021 aPTT Coag (Bld) [Time] 57.2 s Critically high 39.5-54. 2 [facility] Comment on above: Performed By: #### P TTHEP ####[facility] Uqtjtscwqh323[address] [place], [place] [address]Dr. Farhat Leal aPTT Coag (Bld) [Time] 74.7 s Critically high 39.5-54. 2 [facility] Comment on above: Result Comment: repe ated Performed By: #### P TTHEP ####[facility] Slkvueqlbd105607 [address] [place], [place] [address]Dr. Farhat Leal aPTT Coag (Bld) [Time] 45.5 s Normal 39.5-54.[address] [facility] Comment on above: Performed By: #### P TTHEP ####[facility] Nmzbildkgx259[address] [place], [place] [address]Dr. Farhat Leal CBC AUTO DIFFon 09-22-2021 BASO # 0.1 103/ul Normal 0.0-0.1 [facility] Comment on above: Performed By: #### C BC ####[facility] Owevnthdmb06[address] [place] [address]Dr. Farhat Leal Basophils/100 WBC (Bld) 0.7 % Normal 0.2-2.0 [facility] Comment on above: Performed By: #### C BC ####[facility] Kyfliohkwl5353 [place] [address]DrSkylar Leal EO # 0.3 103/ul Normal 0.0-0.7 [facility] Comment on above: Performed By: #### C BC ####[facility] Ytpwolgzrb7469[address] [place], [place] [address]Dr. Farhat Leal Eosinophils/100 WBC (Bld) 3.2 % Normal 0.9-7.0 [facility] Comment on above: Performed By: #### C BC ####[facility] Fklbhlidka126[address] [place], [place] [address]DrSkylar Leal Erythrocyte distribution width (RBC) [Ratio] 12.5 % Normal 11.0-15.0 [facility] Comment on above: Performed By: #### C BC ####[facility] Husaxxkgaj188[address] [place], [place] [address]Dr. Farhat Leal Hematocrit (Bld) [Volume fraction] 40.5 % Critically low 42.0-54.0 [facility] Comment on above: Performed By: #### C BC ####[facility] Gbvczztmqc532[address] [place], [place] [address]Dr. Farhat Leal Hemoglobin (Bld) [Mass/Vol] 13.4 g/dL Critically low 14.0-18.0 [facility] Comment on above: Performed By: #### C BC ####[facility] Aljkcqlrtx923[address] [place], [place] [address]DrSkylar Leal IG # 0.11 10e3/ul Critically high 0.00-0.03 [facility] Comment on above: Performed By: #### C BC ####[facility] Tktyjlslqf948[address] [place], [place] [address]Dr. Farhat Leal IG % 1.3 % Critically high 0.0-0.5 [facility] Comment on above: Performed By: #### C BC ####[facility] Pcithnimvl7378 [place] [address]DrSkylar Leal LYMPH # 1.7 103/ul Normal 1.2-3.8 [facility] Comment on above: Performed By: #### C BC ####[facility] Cfxebdtojl9024 [place] [address]DrSkylar Leal Lymphocytes/100 WBC (Bld) 19.6 % Critically low 20.5-60.0 [facility] Comment on above: Performed By: #### C BC ####[facility] Zjjwtamyht313[address] [place], [place] [address]DrSkylar Leal MANUAL DIFF REQ NO Normal [facility] Comment on above: Performed By: #### C BC ####[facility] Unpmbmsnzz2208 [place] [address]DrSkylar Leal MCH (RBC) [Entitic mass] 31.1 pg Normal 25.9-34.0 [facility] Comment on above: Performed By: #### C BC ####[facility] Lcltinzocd186[address] [place], [place] [address]DrSkylar Leal MCHC (RBC) [Mass/Vol] 33.1 g/dL Normal 29.9-35.2 [facility] Comment on above: Performed By: #### C BC ####[facility] Kkrvvavzqa2812 [place] [address]DrSkylar Leal MCV (RBC) [Entitic vol] 94.0 fL Normal 80.0-94.0 [facility] Comment on above: Performed By: #### C BC ####[facility] Rygjnqnqsp500[address] [place], [place] [address]DrSkylar Leal MONO # 1.1 103/ul Critically high 0.3-0.8 [facility] Comment on above: Performed By: #### C BC ####[facility] Eronlbmbiq733[address] [place], [place] [address]DrSkylar Leal Monocytes/100 WBC (Bld) 12.7 % Critically high 1.7-12.0 [facility] Comment on above: Performed By: #### C BC ####[facility] Npsscrwqzm0450 [place] [address]DrSkylar Farhat Leal NEUT # 5.3 103/ul Normal 1.4-6.5 [facility] Comment on above: Performed By: #### C BC ####[facility] Zoitiogoqc8444 [place] [address]DrSkylar Farhat Leal Neutrophils/100 WBC (Bld) 62.5 % Normal 43.0-75.0 [facility] Comment on above: Performed By: #### C BC ####[facility] Ruzpcvolyi7[address] [place], [place] [address]DrSkylar Farhat Elvis Platelet mean volume (Bld) [Entitic vol] 10.1 fL Normal 9.5-13.5 [facility] Comment on above: Performed By: #### C BC ####[facility] Wjmwlkhrrn189[address] [place], [place] [address]DrSkylar Farhat Leal PLT 220 103/ul Normal 150-450 [facility] Comment on above: Performed By: #### C BC ####[facility] Docszsvbdf592907 [address] [place], [place] [address]DrSkylar Farhat Leal RBC 4.31 106/ul Critically low 4.70-6.10 [facility] Comment on above: Performed By: #### C BC ####[facility] Pkehrhgaob[address] [place], [place] [address]DrSkylar Farhat Elvis WBC 8.4 103/ul Normal 4.0-11.0 [facility] Comment on above: Performed By: #### C BC ####[facility] Xxjalnxgcs[address] [place], [place] [address]DrSkylar Madelynlorri Leal PROF CHEM 8 (BAS METB)on Anion gap [Moles/Vol] 15.5 mmol/L Normal [facility] Comment on above: Performed By: #### B MP ####[facility] Igqxbplztc147107 [address] [place], [place] [address]Dr. Farhat Leal Calcium [Mass/Vol] 8.9 mg/dL Normal 8.5-10.1 [facility] Comment on above: Performed By: #### B MP ####[facility] Wucetwirve8388 [place] [address]Dr. Farhat Leal Chloride [Moles/Vol] 92 mmol/L Critically low 98-107 [facility] Comment on above: Performed By: #### B MP ####[facility] Gqsalaohii5701[address] [place], [place] [address]Dr. Farhat Leal CO2 [Moles/Vol] 25.7 mmol/L Normal 21.0-32.0 [facility] Comment on above: Performed By: #### B MP ####[facility] Yxuudvkoas85350[address] [place], [place] [address]Dr. Farhat Leal Creatinine [Mass/Vol] 1.85 mg/dL Critically high 0.70-1.30 [facility] Comment on above: Performed By: #### B MP ####[facility] Eekfczndbu108[address] [place], [place] [address]Dr. Farhat Leal EGFR-AF CYMRAES 43 mL/min/1.73m2 Critically low >=60 [facility] Comment on above: Performed By: #### B MP ####[facility] Ulwtzvilmk669[address] [place], [place] [address]Dr. Farhat Leal EGFR-NON AF CYMRAES 36 mL/min/1.73m2 Critically low >=60 [facility] Comment on above: Performed By: #### B MP ####[facility] Vnfhiqplln9442 [place] [address]Dr. Farhat Leal Glucose [Mass/Vol] 410 mg/dL Critically high 74-106 [facility] Comment on above: Performed By: #### B MP ####[facility] Dovpgplpdo736[address] [place], [place] [address]Dr. Farhat Leal Potassium [Moles/Vol] 5.2 mmol/L Critically high 3.5-5.1 [facility] Comment on above: Performed By: #### B MP ####[facility] Osddqfxlkz904[address] [place], [place] [address]Dr. Farhat Leal Sodium [Moles/Vol] 128 mmol/L Critically low 136-145 Th [facility] Comment on above: Performed By: #### B MP ####[facility] Acaxgkniak534[address] [place], [place] [address]Dr. Farhat Leal Urea nitrogen [Mass/Vol] 75.0 mg/dL Critically high 7.0-18.0 [facility] Comment on above: Performed By: #### B MP ####[facility] Bwciodsmsg979[address] [place], [place] [address]Dr. Farhat Leal Urea nitrogen/Creatinine [Mass ratio] 40.5 mg/mg Normal [facility] Comment on above: Performed By: #### B MP ####[facility] Zmqxzdidhg306[address] [place], [place] [address]Dr. Farhat Leal PTT HEPARIN MONITORon 2021 aPTT Coag (Bld) [Time] 51.2 s Normal 39.5-54.[address] [facility] Comment on above: Performed By: #### P TTHEP ####[facility] Lefricrlhq837[address] [place], [place] [address]Dr. Farhat Leal aPTT Coag (Bld) [Time] 55.6 s Critically high 39.5-54. 2 [facility] Comment on above: Performed By: #### P TTHEP ####[facility] Dfulafyxwf358[address] [place], [place] [address]Dr. Farhat Leal aPTT Coag (Bld) [Time] 46.1 s Normal 39.5-54.[address] [facility] Comment on above: Performed By: #### P TTHEP ####[facility] Wahdnufqia146[address] [place], [place] [address]Dr. Farhat Leal aPTT Coag (Bld) [Time] 53.8 s Normal 39.5-54.[address] [facility] Comment on above: Performed By: #### P TTHEP ####[facility] Uxecvjjdya947[address] [place], [place] [address]Dr. Farhat Leal CBC AUTO DIFFon 09-21-2021 BASO # 0.1 103/ul Normal 0.0-0.1 [facility] Comment on above: Performed By: #### C BC ####[facility] Tscfvyfvlg8970 [place] [address]Dr. Farhat Leal Basophils/100 WBC (Bld) 0.8 % Normal 0.2-2.0 [facility] Comment on above: Performed By: #### C BC ####[facility] Cbksbojgpb516[address] [place], [place] [address]Dr. Farhat Leal EO # 0.4 103/ul Normal 0.0-0.7 [facility] Comment on above: Performed By: #### C BC ####[facility] Hnkralfnmr8801[address] [place], [place] [address]Dr. Farhat Leal Eosinophils/100 WBC (Bld) 4.3 % Normal 0.9-7.0 [facility] Comment on above: Performed By: #### C BC ####[facility] Kdaxnfkeat969[address] [place], [place] [address]Dr. Farhat Leal Erythrocyte distribution width (RBC) [Ratio] 12.5 % Normal 11.0-15.0 [facility] Comment on above: Performed By: #### C BC ####[facility] Ahiqmfnqaq68350[address] [place], [place] [address]Dr. Farhat Leal Hematocrit (Bld) [Volume fraction] 40.8 % Critically low 42.0-54.0 [facility] Comment on above: Performed By: #### C BC ####[facility] Ppckoswxjm986[address] [place], [place] [address]Dr. Farhat Leal Hemoglobin (Bld) [Mass/Vol] 13.5 g/dL Critically low 14.0-18.0 [facility] Comment on above: Performed By: #### C BC ####[facility] Abmqfdxzja7718[address] [place], [place] [address]Dr. Madelynlorri Elvis IG # 0.10 10e3/ul Critically high 0.00-0.03 [facility] Comment on above: Performed By: #### C BC ####[facility] Loodozwyyu95480[address] [place], [place] [address]Dr. Farhat Leal IG % 1.2 % Critically high 0.0-0.5 [facility] Comment on above: Performed By: #### C BC ####[facility] Spdsaxvbmq0326 [place] [address]Dr. Farhat Leal LYMPH # 1.3 103/ul Normal 1.2-3.8 [facility] Comment on above: Performed By: #### C BC ####[facility] Uhdbqoxbng4872 [place] [address]Dr. Madelynlorri Leal Lymphocytes/100 WBC (Bld) 15.4 % Critically low 20.5-60.0 [facility] Comment on above: Performed By: #### C BC ####[facility] Kidpemzxzp7118 [place] [address]Dr. Farhat Leal MANUAL DIFF REQ NO Normal [facility] Comment on above: Performed By: #### C BC ####[facility] Napvxxzrir3834 [place] [address]Dr. Farhat Elvis MCH (RBC) [Entitic mass] 31.0 pg Normal 25.9-34.0 [facility] Comment on above: Performed By: #### C BC ####[facility] Lecmzbqtkf9214 [place] [address]Dr. Farhat Elvis MCHC (RBC) [Mass/Vol] 33.1 g/dL Normal 29.9-35.2 [facility] Comment on above: Performed By: #### C BC ####[facility] Vuhyzdxlzl0868 [place] [address]DrSkylar Leal MCV (RBC) [Entitic vol] 93.8 fL Normal 80.0-94.0 [facility] Comment on above: Performed By: #### C BC ####[facility] Dtznmfatdr6673 [place] [address]DrSkylar Leal MONO # 1.2 103/ul Critically high 0.3-0.8 [facility] Comment on above: Performed By: #### C BC ####[facility] Mjcgejeane1630 [place] [address]Dr. Farhat Leal Monocytes/100 WBC (Bld) 13.6 % Critically high 1.7-12.0 [facility] Comment on above: Performed By: #### C BC ####[facility] Jwvzxzuyio7128 [place] [address]Dr. Farhat Leal NEUT # 5.5 103/ul Normal 1.4-6.5 [facility] Comment on above: Performed By: #### C BC ####[facility] Ifnixpfnqz1385 [place] [address]Dr. Farhat Leal Neutrophils/100 WBC (Bld) 64.7 % Normal 43.0-75.0 [facility] Comment on above: Performed By: #### C BC ####[facility] Fmpxvgvohq3713 [place] [address]Dr. Farhat Leal Platelet mean volume (Bld) [Entitic vol] 9.8 fL Normal 9.5-13.5 [facility] Comment on above: Performed By: #### C BC ####[facility] Hsxfpnxqax3769 [place] [address]Dr. Farhat Leal PLT 206 103/ul Normal 150-450 [facility] Comment on above: Performed By: #### C BC ####[facility] Zynxehlqhx601[address] [place], [place] [address]Dr. Farhat Leal RBC 4.35 106/ul Critically low 4.70-6.10 [facility] Comment on above: Performed By: #### C BC ####[facility] Vdhlrrobxs0412 [place] [address]Dr. Farhat Leal WBC 8.4 103/ul Normal 4.0-11.0 [facility] Comment on above: Performed By: #### C BC ####[facility] Zderunxuqn6954 [place] [address]Dr. Farhat Elvis PROF CHEM 8 (BAS METB)on Anion gap [Moles/Vol] 12.3 mmol/L Normal [facility] Comment on above: Performed By: #### B MP ####[facility] Thjtnvoovn[address] [place], [place] [address]Dr. Farhat Leal Calcium [Mass/Vol] 8.6 mg/dL Normal 8.5-10.1 [facility] Comment on above: Performed By: #### B MP ####[facility] Wgkgdxxltr0778 [place] [address]Dr. Farhat Leal Chloride [Moles/Vol] 94 mmol/L Critically low 98-107 [facility] Comment on above: Performed By: #### B MP ####[facility] Baraxcfovk324[address] [place], [place] [address]Dr. Farhat Leal CO2 [Moles/Vol] 30.8 mmol/L Normal 21.0-32.0 [facility] Comment on above: Performed By: #### B MP ####[facility] Ezagzfqdrh349607 [address] [place], [place] [address]Dr. Farhat Leal Creatinine [Mass/Vol] 1.99 mg/dL Critically high 0.70-1.30 [facility] Comment on above: Performed By: #### B MP ####[facility] Azbrxrhutn414[address] [place], [place] [address]Dr. Farhat Leal EGFR-AF CYMRAES 40 mL/min/1.73m2 Critically low >=60 [facility] Comment on above: Performed By: #### B MP ####[facility] Aueyjdsbnx124[address] [place], [place] [address]Dr. Farhat Leal EGFR-NON AF CYMRAES 33 mL/min/1.73m2 Critically low >=60 [facility] Comment on above: Performed By: #### B MP ####[facility] Bhzjcacpfz9429[address] [place], [place] [address]Dr. Farhat Leal Glucose [Mass/Vol] 264 mg/dL Critically high 74-106 [facility] Comment on above: Performed By: #### B MP ####[facility] Vlmwyxuxuz857[address] [place], [place] [address]Dr. Farhat Leal Potassium [Moles/Vol] 5.1 mmol/L Normal 3.5-5.1 [facility] Comment on above: Performed By: #### B MP ####[facility] Prhtfgwsrp357[address] [place], [place] [address]Dr. Farhat Leal Sodium [Moles/Vol] 132 mmol/L Critically low 136-145 Th [facility] Comment on above: Performed By: #### B MP ####[facility] Aspbjxnjsn678[address] [place], [place] [address]Dr. Farhat Leal Urea nitrogen [Mass/Vol] 72.0 mg/dL Critically high 7.0-18.0 [facility] Comment on above: Performed By: #### B MP ####[facility] Fyifxucnov894[address] [place], [place] [address]Dr. Farhat Leal Urea nitrogen/Creatinine [Mass ratio] 36.2 mg/mg Normal [facility] Comment on above: Performed By: #### B MP ####[facility] Tmnmfajaim910[address] [place], [place] [address]Dr. Farhat Leal PTT HEPARIN MONITORon 2021 aPTT Coag (Bld) [Time] 45.3 s Normal 39.5-54.[address] [facility] Comment on above: Performed By: #### P TTHEP ####[facility] Frbltxlzal[address] [place], [place] [address]Dr. Madelynlorri Elvis aPTT Coag (Bld) [Time] 68.0 s Critically high 39.5-54. 2 [facility] Comment on above: Performed By: #### P TTHEP ####[facility] Oeqlacldvj[address] [place], [place] [address]Dr. Farhat Leal aPTT Coag (Bld) [Time] 69.4 s Critically high 39.5-54. 2 [facility] Comment on above: Performed By: #### P TTHEP ####[facility] Gxfjhoyosb404[address] [place], [place] [address]Dr. Farhat Leal aPTT Coag (Bld) [Time] 53.5 s Normal 39.5-54.[address] [facility] Comment on above: Performed By: #### P TTHEP ####[facility] Center [address] [place], [place] [address]Dr. Farhat Leal aPTT Coag (Bld) [Time] 126.9 s Critically high 39.5-54. 2 [facility] Comment on above: Performed By: #### P TTHEP ####[facility] Xvuawxandr[address] [place], [place] [address]Dr. Farhat Leal CBC AUTO DIFFon 09-20-2021 BASO # 0.1 103/ul Normal 0.0-0.1 [facility] Comment on above: Performed By: #### C BC ####[facility] Xhodbzenxi[address] [place], [place] [address]Dr. Farhat Leal Basophils/100 WBC (Bld) 0.7 % Normal 0.2-2.0 [facility] Comment on above: Performed By: #### C BC ####[facility] Jyzpgnfnas8[address] [place], [place] [address]Dr. Farhat Leal EO # 0.2 103/ul Normal 0.0-0.7 [facility] Comment on above: Performed By: #### C BC ####[facility] Donvvarylo[address] [place], [place] [address]Dr. Farhat Leal Eosinophils/100 WBC (Bld) 3.2 % Normal 0.9-7.0 [facility] Comment on above: Performed By: #### C BC ####[facility] Enoympgakv9[address] [place], [place] [address]Dr. Farhat Leal Erythrocyte distribution width (RBC) [Ratio] 12.4 % Normal 11.0-15.0 [facility] Comment on above: Performed By: #### C BC ####[facility] Wsjyaoroza[address] [place], [place] [address]Dr. Farhat Leal Hematocrit (Bld) [Volume fraction] 40.1 % Critically low 42.0-54.0 [facility] Comment on above: Performed By: #### C BC ####[facility] Kferwzntpz[address] [place], [place] [address]Dr. Farhat Leal Hemoglobin (Bld) [Mass/Vol] 13.4 g/dL Critically low 14.0-18.0 [facility] Comment on above: Performed By: #### C BC ####[facility] Uscrceoswn0[address] [place] [id number]. Farhat Leal IG # 0.08 10e3/ul Critically high 0.00-0.03 [facility] Comment on above: Performed By: #### C BC ####[facility] Leodnucpuy0241 [place] [id number]. Farhat Elvis IG % 1.1 % Critically high 0.0-0.5 [facility] Comment on above: Performed By: #### C BC ####[facility] Zbllbnlqfi9416 [place] [address]Dr. Madelynlorri Elvis LYMPH # 1.3 103/ul Normal 1.2-3.8 [facility] Comment on above: Performed By: #### C BC ####[facility] Ezkpfjmcgu7336 [place] [address]Dr. Farhat Leal Lymphocytes/100 WBC (Bld) 17.3 % Critically low 20.5-60.0 [facility] Comment on above: Performed By: #### C BC ####[facility] Mkrjkyzwhr12[address] [place] [address]Dr. Madelynlorri Leal MANUAL DIFF REQ NO Normal [facility] Comment on above: Performed By: #### C BC ####[facility] Auapiwdwvy2471 [place] [address]Dr. Farhat Elvis MCH (RBC) [Entitic mass] 31.2 pg Normal 25.9-34.0 [facility] Comment on above: Performed By: #### C BC ####[facility] Eidycgfgre0688 [place] [address]Dr. Farhat Elvis MCHC (RBC) [Mass/Vol] 33.4 g/dL Normal 29.9-35.2 [facility] Comment on above: Performed By: #### C BC ####[facility] Wyfzuqyvyf7849 [place] [address]Dr. Farhat Elvis MCV (RBC) [Entitic vol] 93.3 fL Normal 80.0-94.0 [facility] Comment on above: Performed By: #### C BC ####[facility] Nsahwywvhz3327 [place] [id number]. Farhat Leal MONO # 0.9 103/ul Critically high 0.3-0.8 [facility] Comment on above: Performed By: #### C BC ####[facility] Bwfbldjuvn2067 [place] [phone]. Farhat Leal Monocytes/100 WBC (Bld) 12.4 % Critically high 1.7-12.0 [facility] Comment on above: Performed By: #### C BC ####[facility] Dhqfdsloyv7758 [place] [phone]. Farhat Leal NEUT # 4.7 103/ul Normal 1.4-6.5 [facility] Comment on above: Performed By: #### C BC ####[facility] Tfwyeitwpt6858 [place] [phone]. Farhat Leal Neutrophils/100 WBC (Bld) 65.3 % Normal 43.0-75.0 [facility] Comment on above: Performed By: #### C BC ####[facility] Ahckctkfak1111 [place] [phone]. Farhat Leal Platelet mean volume (Bld) [Entitic vol] 9.9 fL Normal 9.5-13.5 [facility] Comment on above: Performed By: #### C BC ####[facility] Zgjisyslqq8115 [place] [phone]. Farhat Leal PLT 180 103/ul Normal 150-450 [facility] Comment on above: Performed By: #### C BC ####[facility] Rewngrsthf8331 [place] [phone]. Farhat Leal RBC 4.30 106/ul Critically low 4.70-6.10 [facility] Comment on above: Performed By: #### C BC ####[facility] Yckksprquj0663 [place] [phone]. Farhat Leal WBC 7.2 103/ul Normal 4.0-11.0 [facility] Comment on above: Performed By: #### C BC ####[facility] Damntxomqh3627 [place] [phone]. Farhat Leal PTT HEPARIN MONITORon 2021 aPTT Coag (Bld) [Time] 26.7 s Critically low 39.5-54.2 [facility] Comment on above: Performed By: #### P TTHEP ####[facility] Udrnctkpia34[address] [place], [place] [address]Dr. Farhat Leal aPTT Coag (Bld) [Time] 121.0 s Critically high 39.5-54. 2 [facility] Comment on above: Performed By: #### P TTHEP ####[facility] Gxkwpkdqxe189[address] [place], [place] [address]Dr. Farhat Leal aPTT Coag (Bld) [Time] 27.6 s Critically low 39.5-54.2 [facility] Comment on above: Performed By: #### P TTHEP ####[facility] Rqatanlwwe[address] [place], [place] [address]Dr. Farhat Leal aPTT Coag (Bld) [Time] 139.0 s Critically high 39.5-54. 2 [facility] Comment on above: Performed By: #### P TTHEP ####[facility] Pqonjsnfvi847[address] [place], [place] [address]Dr. Farhat Leal CBC AUTO DIFFon 09-19-2021 BASO # 0.0 103/ul Normal 0.0-0.1 [facility] Comment on above: Performed By: #### C BC ####[facility] Gigugbuopz9716[address] [place], [place] [address]Dr. Farhat Leal Basophils/100 WBC (Bld) 0.5 % Normal 0.2-2.0 [facility] Comment on above: Performed By: #### C BC ####[facility] Nczpdlflfs7[address] [place], [place] [address]Dr. Farhat Leal EO # 0.2 103/ul Normal 0.0-0.7 [facility] Comment on above: Performed By: #### C BC ####[facility] Vjgnbeenwo312[address] [place], [place] [address]DrSkylar Leal Eosinophils/100 WBC (Bld) 2.6 % Normal 0.9-7.0 [facility] Comment on above: Performed By: #### C BC ####[facility] Vjrgnyohag8[address] [place], [place] [address]Dr. Farhat Leal Erythrocyte distribution width (RBC) [Ratio] 12.5 % Normal 11.0-15.0 [facility] Comment on above: Performed By: #### C BC ####[facility] Ojmqytspay7[address] [place], [place] [address]Dr. Farhat Elvis Hematocrit (Bld) [Volume fraction] 39.2 % Critically low 42.0-54.0 [facility] Comment on above: Performed By: #### C BC ####[facility] Adwhwkeoyl[address] [place], [place] [address]Dr. Madelynlorri Elvis Hemoglobin (Bld) [Mass/Vol] 13.3 g/dL Critically low 14.0-18.0 [facility] Comment on above: Performed By: #### C BC ####[facility] Hfzrnsnwka[address] [place], [place] [address]Dr. Madelynlorri Elvis IG # 0.08 10e3/ul Critically high 0.00-0.03 [facility] Comment on above: Performed By: #### C BC ####[facility] Vhyzexixoc[address] [place], [place] [address]Dr. Farhat Leal IG % 0.9 % Critically high 0.0-0.5 [facility] Comment on above: Performed By: #### C BC ####[facility] Erxymvgzuh932[address] [place], [place] [address]DrSkylar Leal LYMPH # 1.5 103/ul Normal 1.2-3.8 [facility] Comment on above: Performed By: #### C BC ####[facility] Tjqazrvhnc8[address] [place], [place] [address]Dr. Farhat Leal Lymphocytes/100 WBC (Bld) 17.2 % Critically low 20.5-60.0 [facility] Comment on above: Performed By: #### C BC ####[facility] Hdlqzqfvht[address] [place], [place] [address]Dr. Farhat Leal MANUAL DIFF REQ NO Normal [facility] Comment on above: Performed By: #### C BC ####[facility] Sgbkwqnxuz4216 [place] [address]DrSkylar Farhat Elvis MCH (RBC) [Entitic mass] 31.7 pg Normal 25.9-34.0 [facility] Comment on above: Performed By: #### C BC ####[facility] Bynccmgkql272[address] [place], [place] [address]Dr. aFrhat Elvis MCHC (RBC) [Mass/Vol] 33.9 g/dL Normal 29.9-35.2 [facility] Comment on above: Performed By: #### C BC ####[facility] Pgalovkfka[address] [place], [place] [address]DrSkylar Madelynlorri Leal MCV (RBC) [Entitic vol] 93.3 fL Normal 80.0-94.0 [facility] Comment on above: Performed By: #### C BC ####[facility] Ccfwmlwluf[address] [place], [place] [address]DrSkylar Leal MONO # 1.2 103/ul Critically high 0.3-0.8 [facility] Comment on above: Performed By: #### C BC ####[facility] Oipoiqvegv33[address] [place], [place] [address]Dr. Farhat Leal Monocytes/100 WBC (Bld) 13.7 % Critically high 1.7-12.0 [facility] Comment on above: Performed By: #### C BC ####[facility] Lcfsbfksdi11[address] [place], [place] [address]DrSkylar Leal NEUT # 5.5 103/ul Normal 1.4-6.5 [facility] Comment on above: Performed By: #### C BC ####[facility] Prulgopnsi37[address] [place], [place] [address]DrSkylar Leal Neutrophils/100 WBC (Bld) 65.1 % Normal 43.0-75.0 [facility] Comment on above: Performed By: #### C BC ####[facility] Ubycaddpcv733[address] [place], [place] [address]DrSkylar Leal Platelet mean volume (Bld) [Entitic vol] 9.6 fL Normal 9.5-13.5 [facility] Comment on above: Performed By: #### C BC ####[facility] Jziivsmuva3871 [place] [address]Dr. Farhat Leal PLT 163 103/ul Normal 150-450 [facility] Comment on above: Performed By: #### C BC ####[facility] Mftepbyuat7881 [place] [address]Dr. Farhat Leal RBC 4.20 106/ul Critically low 4.70-6.10 [facility] Comment on above: Performed By: #### C BC ####[facility] Hwosgtjjhj4744 [place] [address]Dr. Farhat Leal WBC 8.4 103/ul Normal 4.0-11.0 [facility] Comment on above: Performed By: #### C BC ####[facility] Oivsclkqyu246[address] [place], [place] [address]Dr. Farhat eLal POINT OF CARE GLUCOSEon Glucose [Mass/Vol] 300 mg/dL Critically high 74-106 [facility] Comment on above: Performed By: #### P OCGLUC ####[facility] Rirhutupgz[address] [place], [place] [address]Dr. Farhat Leal POTASSIUMon 09-19-2021 Potassium [Moles/Vol] 4.9 mmol/L Normal 3.5-5.1 [facility] Comment on above: Performed By: #### K ####[facility] Rxooiqakxi1139[address] [place], [place] [address]Dr. Farhat Leal PTT HEPARIN MONITORon 2021 aPTT Coag (Bld) [Time] 23.4 s Critically low 39.5-54.2 [facility] Comment on above: Result Comment: repe ated Performed By: #### P TTHEP ####[facility] Zldszjzyme846[address] [place], [place] [address]Dr. Farhat Elvis aPTT Coag (Bld) [Time] 101.2 s Critically high 39.5-54. 2 [facility] Comment on above: Performed By: #### P TTHEP ####[facility] Cvrweuwgzs[address] [place], [place] [address]Dr. Farhat Elvis aPTT Coag (Bld) [Time] 81.0 s Critically high 39.5-54. 2 [facility] Comment on above: Result Comment: Test Repeated. Critical Value Verified Performed By: #### P TTHEP ####[facility] Fyjrmceohr[address] [place], [place] [address]Dr. Farhat Elvis CBC AUTO DIFFon 09-18-2021 BASO # 0.0 103/ul Normal 0.0-0.1 [facility] Comment on above: Performed By: #### C BC ####[facility] Iaxftfusfl9[address] [place], [place] [address]Dr. Farhat Leal Basophils/100 WBC (Bld) 0.4 % Normal 0.2-2.0 [facility] Comment on above: Performed By: #### C BC ####[facility] Rcxqeimxik[address] [place], [place] [address]Dr. Farhat Leal EO # 0.1 103/ul Normal 0.0-0.7 [facility] Comment on above: Performed By: #### C BC ####[facility] Dehttcxmwy[address] [place], [place] [address]Dr. Farhat Leal Eosinophils/100 WBC (Bld) 0.8 % Critically low 0.9-7.0 [facility] Comment on above: Performed By: #### C BC ####[facility] Jvucdhexsg[address] [place], [place] [address]Dr. Farhat Leal Erythrocyte distribution width (RBC) [Ratio] 12.4 % Normal 11.0-15.0 [facility] Comment on above: Performed By: #### C BC ####[facility] Aaktvdhjxe88[address] [place], [place] [address]Dr. Farhat Leal Hematocrit (Bld) [Volume fraction] 41.7 % Critically low 42.0-54.0 [facility] Comment on above: Performed By: #### C BC ####[facility] Pbqgmwfevu7246 [place] [phone]. Farhat Leal Hemoglobin (Bld) [Mass/Vol] 14.1 g/dL Normal 14.0-18.0 [facility] Comment on above: Performed By: #### C BC ####[facility] Jagrjetjil2308 [place] [phone]. Farhat Leal IG # 0.06 10e3/ul Critically high 0.00-0.03 [facility] Comment on above: Performed By: #### C BC ####[facility] Oqzzyrwmum3298 [place] [phone]. Farhat Leal IG % 0.6 % Critically high 0.0-0.5 [facility] Comment on above: Performed By: #### C BC ####[facility] Ztopaxcsrf6977 [place] [address]Dr. Farhat Leal LYMPH # 0.6 103/ul Critically low 1.2-3.8 [facility] Comment on above: Performed By: #### C BC ####[facility] Zawetbftqw9155 [place] [address]Dr. Farhat Leal Lymphocytes/100 WBC (Bld) 6.5 % Critically low 20.5-60.0 [facility] Comment on above: Performed By: #### C BC ####[facility] Kfdeyncjib3253 [place] [address]Dr. Farhat Leal MANUAL DIFF REQ NO Normal [facility] Comment on above: Performed By: #### C BC ####[facility] Zgagekpkah4026 [place] [address]Dr. Farhat Leal MCH (RBC) [Entitic mass] 31.6 pg Normal 25.9-34.0 [facility] Comment on above: Performed By: #### C BC ####[facility] Btuhyidyqm[address] [place], [place] [address]Dr. Farhat Leal MCHC (RBC) [Mass/Vol] 33.8 g/dL Normal 29.9-35.2 [facility] Comment on above: Performed By: #### C BC ####[facility] Drrxeqlxuo9139 [place] [phone]. Farhat Leal MCV (RBC) [Entitic vol] 93.5 fL Normal 80.0-94.0 [facility] Comment on above: Performed By: #### C BC ####[facility] Skagwrcwby1285 [place] [phone]. Farhat Leal MONO # 1.0 103/ul Critically high 0.3-0.8 [facility] Comment on above: Performed By: #### C BC ####[facility] Xumggbmhtv8405 [place] [phone]. Farhat Leal Monocytes/100 WBC (Bld) 10.4 % Normal 1.7-12.0 [facility] Comment on above: Performed By: #### C BC ####[facility] Pvcidwdqko2055 [place] [phone]. Farhat Leal NEUT # 7.8 103/ul Critically high 1.4-6.5 [facility] Comment on above: Performed By: #### C BC ####[facility] Xebxksntab4509 [place] [phone]. Farhat Lael Neutrophils/100 WBC (Bld) 81.3 % Critically high 43.0-75.0 [facility] Comment on above: Performed By: #### C BC ####[facility] Cslwrfncva8002 [place] [phone]. Farhat Leal Platelet mean volume (Bld) [Entitic vol] 9.9 fL Normal 9.5-13.5 [facility] Comment on above: Performed By: #### C BC ####[facility] Mekmkuzqgv4363 [place] [phone]. Farhat Leal PLT 169 103/ul Normal 150-450 [facility] Comment on above: Performed By: #### C BC ####[facility] Mmlpgxwcwc7567 [place] [phone]. Farhat Leal RBC 4.46 106/ul Critically low 4.70-6.10 [facility] Comment on above: Performed By: #### C BC ####[facility] Wgbfjjcirl9552 [place] [phone]. Farhat Leal WBC 9.6 103/ul Normal 4.0-11.0 [facility] Comment on above: Performed By: #### C BC ####[facility] Fusfhqaqul0588 [place] [phone]. Farhat Leal BASO # 0.0 103/ul Normal 0.0-0.1 [facility] Comment on above: Performed By: #### C BC ####[facility] Bsolynmcdk6253 [place] [phone]. Farhat Leal Basophils/100 WBC (Bld) 0.4 % Normal 0.2-2.0 [facility] Comment on above: Performed By: #### C BC ####[facility] Eqkqcepgds2817 [place] [phone]. Farhat Leal EO # 0.1 103/ul Normal 0.0-0.7 [facility] Comment on above: Performed By: #### C BC ####[facility] Lipedmlgnj1145 [place] [phone]. Farhat Leal Eosinophils/100 WBC (Bld) 1.1 % Normal 0.9-7.0 [facility] Comment on above: Performed By: #### C BC ####[facility] [address]jyotx[address] [place], [place] [address]Dr. Farhat Leal Erythrocyte distribution width (RBC) [Ratio] 12.6 % Normal 11.0-15.0 [facility] Comment on above: Performed By: #### C BC ####[facility] Dwjxpkmxun0494 [place] [phone]. Farhat Leal Hematocrit (Bld) [Volume fraction] 40.8 % Critically low 42.0-54.0 [facility] Comment on above: Performed By: #### C BC ####[facility] Emgpytcfqh3147 [place] [phone]. Farhat Leal Hemoglobin (Bld) [Mass/Vol] 13.6 g/dL Critically low 14.0-18.0 [facility] Comment on above: Performed By: #### C BC ####[facility] Cagmwwyaan3469 [place] [phone]. Farhat Leal IG # 0.08 10e3/ul Critically high 0.00-0.03 [facility] Comment on above: Performed By: #### C BC ####[facility] Jetipkdtrc4155 [place] [phone]. Farhat Leal IG % 0.9 % Critically high 0.0-0.5 [facility] Comment on above: Performed By: #### C BC ####[facility] Tbxdilhlsw2836 [place] [phone]. Farhat Elvis LYMPH # 0.8 103/ul Critically low 1.2-3.8 [facility] Comment on above: Performed By: #### C BC ####[facility] Nzezrzftgg6145 [place] [address]Dr. Farhat Leal Lymphocytes/100 WBC (Bld) 8.7 % Critically low 20.5-60.0 [facility] Comment on above: Performed By: #### C BC ####[facility] Lbqevsucpm6366 [place] [address]Dr. Farhat Leal MANUAL DIFF REQ NO Normal [facility] Comment on above: Performed By: #### C BC ####[facility] Fxexpifxkt1764 [place] [address]Dr. Farhat Leal MCH (RBC) [Entitic mass] 31.6 pg Normal 25.9-34.0 [facility] Comment on above: Performed By: #### C BC ####[facility] Zbqswsswge8677 [place] [address]Dr. Farhat Leal MCHC (RBC) [Mass/Vol] 33.3 g/dL Normal 29.9-35.2 [facility] Comment on above: Performed By: #### C BC ####[facility] Eqmldjdkam7307 [place] [address]Dr. Farhat Leal MCV (RBC) [Entitic vol] 94.9 fL Critically high 80.0-94.0 [facility] Comment on above: Performed By: #### C BC ####[facility] Gwmbexvkec3640 [place] [phone]. Farhat Leal MONO # 1.0 103/ul Critically high 0.3-0.8 [facility] Comment on above: Performed By: #### C BC ####[facility] Okuujccneg4719 [place] [phone]. Farhat Leal Monocytes/100 WBC (Bld) 11.3 % Normal 1.7-12.0 [facility] Comment on above: Performed By: #### C BC ####[facility] Ovczkmtuja3073 [place] [phone]. Farhat Leal NEUT # 6.9 103/ul Critically high 1.4-6.5 [facility] Comment on above: Performed By: #### C BC ####[facility] Hpfffoveiq5226 [place] [phone]. Farhat Leal Neutrophils/100 WBC (Bld) 77.6 % Critically high 43.0-75.0 [facility] Comment on above: Performed By: #### C BC ####[facility] Cmpufslhek4676 [place] [phone]. Farhat Leal Platelet mean volume (Bld) [Entitic vol] 9.7 fL Normal 9.5-13.5 [facility] Comment on above: Performed By: #### C BC ####[facility] Gxyztkxyiz8391 [place] [phone]. Farhat Leal PLT 171 103/ul Normal 150-450 [facility] Comment on above: Performed By: #### C BC ####[facility] Vlmroksvnh4506 [place] [phone]. Farhat Leal RBC 4.30 106/ul Critically low 4.70-6.10 [facility] Comment on above: Performed By: #### C BC ####[facility] Xhmvuavgvq8398 [place] [phone]. Farhat Leal WBC 8.9 103/ul Normal 4.0-11.0 [facility] Comment on above: Performed By: #### C BC ####[facility] [address] [place] [address]Dr. Farhat Leal Covid-19 PCR (CVDTB)on SARS-CoV-2 (COVID-19) RNA JOSH+probe Ql (Unsp spec) Not detected Normal NOT DETECTED [facility] Comment on above: Result Comment: When diagnostic [...] for this test is supported by the [employer] [place] of Health and Human Service's declaration that [...] be used). Performed By: #### C VDTBH ####[facility] [address] [place] [address]Dr. Farhat Leal PROF 14(COMP METB)on 022 Albumin [Mass/Vol] 2.6 g/dL Critically low 3.4-5.0 Th [facility] Comment on above: Performed By: #### C MP ####[facility] [address] [place] [address]Dr. Farhat Leal Albumin/Globulin [Mass ratio] 0.7 {ratio} Normal [facility] Comment on above: Performed By: #### C MP ####[facility] Azgrhyvnri[address] [place] [address]DrSkylar Leal ALP [Catalytic activity/Vol] 88 U/L Normal 46-116 [facility] Comment on above: Performed By: #### C MP ####[facility] O[address] [place] [address]Dr. Farhat Leal ALT [Catalytic activity/Vol] 15 U/L Critically low 16-63 [facility] Comment on above: Performed By: #### C MP ####[facility] [address]mfkxi[address] [place] [id number]. Farhat Leal Anion gap [Moles/Vol] 11.7 mmol/L Normal Th [facility] Comment on above: Performed By: #### C MP ####[facility] [address] [place] [id number]. Farhat Leal AST [Catalytic activity/Vol] 25 U/L Normal 15-37 [facility] Comment on above: Performed By: #### C MP ####[facility] [address] [place], [place] [address]Dr. Farhat Leal Bilirubin [Mass/Vol] 0.6 mg/dL Normal 0.2-1.0 [facility] Comment on above: Performed By: #### C MP ####[facility] Fnofbipeur[address] [place], [place] [address]Dr. Farhat Leal Calcium [Mass/Vol] 8.9 mg/dL Normal 8.5-10.1 [facility] Comment on above: Performed By: #### C MP ####[facility] Fwnpsxdvqv[address] [place], [place] [address]Dr. Farhat Leal Chloride [Moles/Vol] 93 mmol/L Critically low 98-107 [facility] Comment on above: Performed By: #### C MP ####[facility] Oaeoapkodr[address] [place], [place] [id number]. Farhat Leal CO2 [Moles/Vol] 28.9 mmol/L Normal 21.0-32.0 [facility] Comment on above: Performed By: #### C MP ####[facility] Wwhxyhkftv[address] [place], [place] [id number]. Farhat Leal Creatinine [Mass/Vol] 2.09 mg/dL Critically high 0.70-1.30 [facility] Comment on above: Performed By: #### C MP ####[facility] Qsaghnbtgb[address] [place], [place] [address]Dr. Farhat Leal EGFR-AF CYMRAES 38 mL/min/1.73m2 Critically low >=60 [facility] Comment on above: Performed By: #### C MP ####[facility] Xmcugigxxw[address] [place] [address]Dr. Farhat Elvis EGFR-NON AF CYMRAES 31 mL/min/1.73m2 Critically low >=60 [facility] Comment on above: Performed By: #### C MP ####[facility] Onxxcbfdsx[address] [place], [place] [address]Dr. Madelynlorri Elvis Globulin (S) [Mass/Vol] 3.7 g/dL Normal [facility] Comment on above: Performed By: #### C MP ####[facility] Gxokhcashk[address] [place], [place] [address]Dr. Farhat Leal Glucose [Mass/Vol] 214 mg/dL Critically high 74-106 T [place] Comment on above: Performed By: #### C MP ####[facility] Xfzzwsjiqa[address] [place], [place] [address]Dr. Farhat Leal Potassium [Moles/Vol] 5.6 mmol/L Critically high 3.5-5.1 [facility] Comment on above: Performed By: #### C MP ####[facility] Eviwdoazer[address] [place], [place] [address]Dr. Farhat Leal Protein [Mass/Vol] 6.3 g/dL Critically low 6.4-8.2 Th [facility] Comment on above: Performed By: #### C MP ####[facility] Sjsxwjgjem[address] [place], [place] [address]Dr. Farhat Leal Sodium [Moles/Vol] 128 mmol/L Critically low 136-145 Th [facility] Comment on above: Performed By: #### C MP ####[facility] Pkbimnrebn[address] [place], [place] [address]Dr. Farhat Leal Urea nitrogen [Mass/Vol] 65.0 mg/dL Critically high 7.0-18.0 [facility] Comment on above: Performed By: #### C MP ####[facility] Mwqpywcmck[address] [place], [place] [address]Dr. Farhat Leal Urea nitrogen/Creatinine [Mass ratio] 31.1 mg/mg Normal [facility] Comment on above: Performed By: #### C MP ####[facility] Ltrohnoblo[address] [place], [place] [address]Dr. Farhat Elvis Albumin [Mass/Vol] 2.5 g/dL Critically low 3.4-5.0 Th e [facility] Comment on above: Performed By: #### T MYRIAM, CMP ####[facility] Oznfytufda[address] [place], [place] [address]Dr. Farhat Elvis Albumin/Globulin [Mass ratio] 0.7 {ratio} Normal [facility] Comment on above: Performed By: #### T MYRIAM, CMP ####[facility] Gyirrvvtih[address] [place], [place] [address]Dr. Madelynlorri Leal ALP [Catalytic activity/Vol] 83 U/L Normal 46-116 [facility] Comment on above: Performed By: #### T MYRIAM, CMP ####[facility] Oyhfaiqulv[address] [place], [place] [address]Dr. Farhat Elvis ALT [Catalytic activity/Vol] 16 U/L Normal 16-63 [facility] Comment on above: Performed By: #### T MYRIAM, CMP ####[facility] Nbabqsrvek[address] [place], [place] [address]Dr. Madelynlorri Elvis Anion gap [Moles/Vol] 9.7 mmol/L Normal [facility] Comment on above: Performed By: #### T MYRIAM, CMP ####[facility] Knohebdtjg[address] [place], [place] [address]Dr. Madelynlorri Leal AST [Catalytic activity/Vol] 27 U/L Normal 15-37 [facility] Comment on above: Performed By: #### T MYRIAM, CMP ####[facility] Fszutascgx[address] [place], [place] [address]Dr. Farhat Leal Bilirubin [Mass/Vol] 0.5 mg/dL Normal 0.2-1.0 [facility] Comment on above: Performed By: #### T MYRIAM, CMP ####[facility] Tjaggw[address]fo[address] [place], [place] [address]Dr. Farhat Leal Calcium [Mass/Vol] 8.8 mg/dL Normal 8.5-10.1 [facility] Comment on above: Performed By: #### T MYRIAM, CMP ####[facility] Zcjarbsehz[address] [place], [place] [address]Dr. Farhat Leal Chloride [Moles/Vol] 95 mmol/L Critically low 98-107 [facility] Comment on above: Performed By: #### T MYRIAM, CMP ####[facility] Knhtiaonoj[address] [place], [place] [address]Dr. Farhat Leal CO2 [Moles/Vol] 30.5 mmol/L Normal 21.0-32.0 [facility] Comment on above: Performed By: #### T MYRIAM, CMP ####[facility] Vywhwvmiac[address] [place], [place] [address]Dr. Farhat Leal Creatinine [Mass/Vol] 2.18 mg/dL Critically high 0.70-1.30 [facility] Comment on above: Performed By: #### T MYRIAM, CMP ####[facility] Upmqljpomy[address] [place], [place] [address]Dr. Farhat Leal EGFR-AF CYMRAES 36 mL/min/1.73m2 Critically low >=60 [facility] Comment on above: Performed By: #### T MYRIAM, CMP ####[facility] Oskiupitfx7[address] [place], [place] [address]Dr. Farhat Leal EGFR-NON AF CYMRAES 30 mL/min/1.73m2 Critically low >=60 [facility] Comment on above: Performed By: #### T MYRIAM, CMP ####[facility] C[address]wl[address]vz[address] [place], [place] [address]Dr. Farhat Leal Globulin (S) [Mass/Vol] 3.5 g/dL Normal [facility] Comment on above: Performed By: #### T MYRIAM, CMP ####[facility] Wwndwvqabn[address] [place], [place] [address]Dr. Farhat Leal Glucose [Mass/Vol] 141 mg/dL Critically high 74-106 [facility] Comment on above: Performed By: #### T MYRIAM, CMP ####[facility] Xlqfpmvfyl[address] [place], [place] [address]Dr. Farhat Leal Potassium [Moles/Vol] 5.2 mmol/L Critically high 3.5-5.1 [facility] Comment on above: Performed By: #### T MYRIAM, CMP ####[facility] Aogimnlxcn[address] [place], [place] [address]Dr. Farhat Leal Protein [Mass/Vol] 6.0 g/dL Critically low 6.4-8.2 Th [facility] Comment on above: Performed By: #### T MYRIAM, CMP ####[facility] Tsminnejfe[address] [place], [place] [address]Dr. Farhat Leal Sodium [Moles/Vol] 130 mmol/L Critically low 136-145 Th [facility] Comment on above: Performed By: #### T MYRIAM, CMP ####[facility] Nztvosswol[address] [place], [place] [address]Dr. Farhat Leal Urea nitrogen [Mass/Vol] 63.0 mg/dL Critically high 7.0-18.0 [facility] Comment on above: Performed By: #### T MYRIAM, CMP ####[facility] Cpubelfard[address] [place], [place] [address]Dr. Farhat Leal Urea nitrogen/Creatinine [Mass ratio] 28.9 mg/mg Normal [facility] Comment on above: Performed By: #### T MYRIAM, CMP ####[facility] Lekvwgrsve[address] [place], [place] [address]Dr. Farhat Leal PROTIMEon 09-18-2021 INR Coag (PPP) [Relative time] 1.06 {INR} Normal [facility] Comment on above: Performed By: #### P T, PTT ####[facility] Hyvaodzwyw[address] [place], [place] [address]Dr. Farhat Leal INR GUIDELINES SEE BELOW Normal [facility] Comment on above: Result Comment: MALINA RED INR: 2.0 - 3.0 CONDITIONS NOT LISTED BELOW 2.5 - 3.5 FOR PROSTHETIC HEART VALVE REPLACEMENT 2.5 - 3.5 RECURRENT THROMBOSIS Performed By: #### P T, PTT ####[facility] Ypt[address] [place], [place] [address]Dr. Farhat Leal PT Coag (PPP) [Time] 11.4 s Normal 9.0-11.6 [facility] Comment on above: Performed By: #### P T, PTT ####[facility] [address] [place], [place] [address]Zr. Farhat Leal PTTon 09-18-2021 aPTT Coag (Bld) [Time] 27.9 s Normal 22.3-36.[address] [facility] Comment on above: Performed By: #### P T, PTT ####[facility] [address] [place], [place] [address]Gf. Farhat Leal TSHon 09-18-2021 TSH 7.099 uIU/mL Critically high 0.358-3.740 [facility] Comment on above: Performed By: #### T SH, CMP ####[facility] [address] [place] [id number]. Farhat Leal US SALOME DOP LEG RTon 09-19-19 22 US SALOME DOP LEG RT Normal [facility] XR CHEST 1 Von 09-18-2021 XR CHEST 1 V Normal [facility] XR HIP RT 2 3V W PELVISon XR HIP RT 2 3V W PELVIS Normal [facility] Vital Signs Date Time Vital Sign Value Performing Clinician Facility 07-20-2022 13:35-0400 Body temperature 97.4 [degF] DO Devon Ball Work Phone: 07-20-2022 13:35-0400 Diastolic blood pressure 50 mm[Hg] DO Devon Ball Work Phone: 07-20-2022 13:35-0400 Heart rate 67 /min DO Devon Ball Work Phone: 07-20-2022 13:35-0400 Respiratory rate 20 /min DO Devon Ball Work Phone: 07-20-2022 13:35-0400 Systolic blood pressure 98 mm[Hg] DO Devon Ball Work Phone: 06-29-2022 14:46-0400 Body height 193.04 cm DO Devon Moreira Work Phone: 02-26-2022 13:11-0500 Body temperature 96.6 [degF] Hina Peterson MD Work Phone: [facility] 02-26-2022 13:11-0500 Diastolic blood pressure 75 mm[Hg] Hina Peterson MD Work Phone: [facility] 02-26-2022 13:11-0500 Heart rate 75 /min Hina Peterson MD Work Phone: [facility] 02-26-2022 13:11-0500 Systolic blood pressure 88 mm[Hg] Hina Peterson MD Work Phone: [facility] 02-05-2022 08:29-0500 Body temperature 96.69 [degF] [facility] Work Phone: [facility] 02-05-2022 08:29-0500 Diastolic blood pressure 42 mm[Hg] [facility] Work Phone: [facility] 02-05-2022 08:29-0500 Heart rate 79 /min [facility] Work Phone: [facility] 02-05-2022 08:29-0500 SaO2% (BldA) [Mass fraction] 100 % [facility] Work Phone: [facility] 02-05-2022 08:29-0500 Systolic blood pressure 72 mm[Hg] [facility] Work Phone: [facility] 01-12-2022 11:00-0500 Diastolic blood pressure 54 mm[Hg] Alissa Major [employer]ANER Work Phone: [facility] 01-12-2022 11:00-0500 Heart rate 88 /min Alissa Major [employer]OFFICE CLEANER Work Phone: [facility] 01-12-2022 11:00-0500 SaO2% (BldA) [Mass fraction] 93 % Alissa Major [employer].OFFICE CLEANER Work Phone: [facility] 01-12-2022 11:00-0500 Systolic blood pressure 96 mm[Hg] [facility] [employer].OFFICE CLEANER Work Phone: [facility] 01-12-2022 10:12-0500 Body temperature 97.9 [degF] Alissa [facility] [employer].OFFICE CLEANER Work Phone: [facility] 01-12-2022 10:12-0500 Respiratory rate 18 /min [facility] [employer].OFFICE CLEANER Work Phone: [facility] 11-17-2021 15:59-0400 Body height 193 cm No Reeder DO Work Phone: [facility] 11-17-2021 15:59-0400 Body weight 111.58 kg No Reeder DO Work Phone: [facility] 11-17-2021 15:59-0400 Diastolic blood pressure 59 mm[Hg] No Reeder DO Work Phone: [facility] 11-17-2021 15:59-0400 Heart rate 86 /min No Reeder DO Work Phone: [facility] 11-17-2021 15:59-0400 SaO2% (BldA) [Mass fraction] 97 % No Reeder DO Work Phone: [facility] 11-17-2021 15:59-0400 Systolic blood pressure 104 mm[Hg] No Reeder DO Work Phone: [facility] Encounters Encounter Date Encounter Type Care Provider Facility Start: 02-17-2023 End: 02-17-2023 ambulatory Devon Moreira Other [employer] Other Start: 02-17-2023 Telephone encounter Devon Moreira [facility] Start: 01-14-2023 End: 01-14-2023 ambulatory Devon Moreira Other [employer] Other Start: 01-14-2023 Sbsq nursing facil c are/day minor complj 15 min Devon Moreira [facility] Start: 12-10-2022 End: 12-10-2022 ambulatory Devon Moreira Other [employer] Other Start: 12-10-2022 Sbsq nursing facil c are/day minor complj 15 min Devon Lillie [facility] Start: 11-12-2022 End: 11-12-2022 ambulatory Devon Moreira Other [employer] Other Start: 11-12-2022 Sbsq nursing facil c are/day minor complj 15 min [facility] Start: 10-16-2022 Refill Asia Pike MD Work Phone: [facility] Comment on above: Med Change Request Start: 10-12-2022 End: 10-12-2022 ambulatory Devon Moreira Other [employer] Other Start: 10-12-2022 Telephone encounter Devon Moreira [facility] Start: 10-08-2022 End: 10-08-2022 ambulatory Devon Moreira Other [employer] Other Start: 10-08-2022 Sbsq nursing facil c are/day new problem 25 min [facility] Start: 09-22-2022 [facility]: [facility] Start: 09-10-2022 End: 09-10-2022 ambulatory Devon Moreira Other [employer] Other Start: 09-10-2022 Sbsq nursing facil c are/day new problem 25 min Devon Moreira [facility] Start: 09-09-2022 End: 09-09-2022 ambulatory [facility] Start: 08-06-2022 End: 08-06-2022 ambulatory Devon Moreira Other [employer] Other Start: 08-06-2022 Sbsq nursing facil c are/day new problem 25 min [facility] Start: 07-22-2022 End: 07-22-2022 ambulatory Devon Moreira Other [employer] Other Start: 07-22-2022 Telephone encounter Devon NUNEZ [facility] Start: 07-20-2022 End: 07-20-2022 ambulatory Sadia Aguilar Facility: Start: 07-20-2022 End: 07-20-2022 ambulatory DO Devon Moreira Work Phone: [facility] Work Phone: Start: 07-20-2022 End: 07-20-2022 Discharged Recurring DO Devon Moreira Work Phone: [facility] Work Phone: Start: 07-13-2022 End: 07-13-[address] DEVON MOREIRA Facility:[facility] Start: 07-10-2022 End: 07-10-[address] DEVON MOREIRA Facility:[facility] Start: 07-03-2022 End: 07-03-[address] DEVON MOREIRA Facility:[facility] Start: 06-26-2022 End: 06-26-[address] DEVON MOREIRA Facility:[facility] Start: 06-26-2022 End: 06-26-[address] DEVON MOREIRA Facility:[facility] Start: 06-25-2022 End: 06-25-2022 ambulatory Devon Moreira Other [employer] Other Start: 06-25-2022 Sbsq nursing facil c are/day minor complj 15 min Devon Moreira [facility] Start: 06-19-2022 End: 06-19-[address] DEVON MOREIRA Facility:[facility] Start: 06-15-2022 End: 07-15-2022 ambulatory SHAIKH Kate MURRAY Facility:[facility] Start: 06-12-2022 End: 06-12-[address] DOCTOR WALSH Facility:[facility] Start: 06-05-2022 Sbsq nursing facil c are/day new problem 25 min Devon Moreira [facility] Start: 06-05-2022 End: 06-05-[address] DEVON MOREIRA [facility] [employer] Other Start: 05-29-2022 End: 05-29-[address] DEVON MOREIRA Facility:[facility] Start: 05-22-2022 End: 05-22-[address] DEVON MOREIRA Facility:[facility] Start: 05-20-2022 End: 05-20-[address] DEVON MOREIRA Facility:[facility] Start: 05-18-2022 End: 06-12-2022 ambulatory SHAIKH Kate MURRAY Facility:[facility] Start: 05-15-2022 End: 05-15-[address] DEVON MOREIRA Facility:[facility] Start: 05-13-2022 End: 05-13-2022 ambulatory Van Olivarez [employer] CLEANER Work Phone: [facility] Comment on above: results Start: 05-13-2022 E-mail encounter fro m caregiver Van Olivarez APRN.OFFICE CLEANER Work Phone: [facility] Start: 05-08-2022 End: 05-08-[address] DEVON MOREIRA Facility:[facility] Start: 05-07-2022 End: 05-07-2022 ambulatory Devon Moreira Other [employer] Other Start: 05-07-2022 Sbsq nursing facil c are/day new problem 25 min Devon Moreira [facility] Start: 05-06-2022 End: 05-06-[address] [...] MOREIRA Facility:[facility] Start: 04-02-2022 ambulatory Van cortes [employer].OFFICE CLEANER Work Phone: [facility] Start: 04-01-2022 End: 04-01-[address] DEVON MOREIRA Facility:[facility] Start: 03-22-2022 Refill Asia Pike MD Work Phone: [facility] Comment on above: Med Change Request Start: 03-21-2022 ambulatory SHAIKH Kate MURRAY Facilit y:H1 Start: 03-11-2022 End: 03-11-[address] DEVON MOREIRA Facility:[facility] Start: 03-10-2022 End: 03-10-2022 ambulatory [facility] Start: 02-27-2022 Refill Samira Serna [facility] Comment on above: Rx Refills Start: 02-26-2022 End: 02-26-2022 ambulatory DEVON MOREIRA Facility:[facility] Start: 02-26-2022 End: 02-26-2022 Patient encounter procedure [...] Start: 02-05-2022 End: 02-06-2022 ambulatory ARTUR CHEN Facility:[facility] Start: 02-05-2022 End: 02-05-2022 Patient encounter procedure [facility] Work Phone: [facility] Comment on above: Kidney replaced by t ransplant (Primary Dx); 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; intermediate card tender current use of immunosuppressive drug Start: 01-26-2022 End: 01-26-[address] DEVON MOREIRA Facility:[facility]1 Start: 01-20-2022 Telephone encounter Van Olivarez APRN.OFFICE CLEANER Work Phone: [facility] Comment on above: Results Start: 01-19-2022 End: 01-19-[address] DEVON MOREIRA Facility:[facility]1 Start: 01-16-2022 ambulatory SHAIKH Kate MURRAY Facilit y:H1 Start: 01-12-2022 End: 01-12-2022 Subsequent hospital visit by physician Alissa Chavira APRN.OFFICE CLEANER Work Phone: [facility] Comment on above: ILIANA (acute kidney in jury) (HCC) [N17.9] Start: 12-30-2021 End: 12-30-2021 ambulatory Paresh Fonseca MD Work Phone: Infectious Disease Comment on above: MRSA bacteremia (Arabella munira Dx); Diabetic foot ulcer with osteomyelitis (HCC) Start: 12-30-2021 End: 12-30-2021 Telemedicine consultation with patient Paresh Fonseca MD Work Phone: [facility] Start: 12-29-2021 End: 12-29-2021 ambulatory [...] Start: 12-08-2021 Orders Only Artur Jennyfer ry [employer].OFFICE CLEANER Work Phone: [facility] Comment on above: Kidney replaced by t ransplant (Primary Dx) Start: 12-07-2021 ambulatory Paresh Fonseca MD Work Phone: [facility] Comment on above: CoPat Start (copat s top 12/27/21) Start: 12-05-2021 Telephone encounter Paresh Fonseca MD Work Phone: Infectious Disease Comment on above: Patient Update (evus held discussion/) Start: 12-01-2021 Follow-up encounter [facility] Provider [facility] Start: 12-01-2021 Patient encounter procedure [facility] Prov ider [facility] Department Start: 11-23-2021 End: 11-28-2021 [...] management encounter Start: 11-14-2021 End: 11-15-2021 ambulatory [facility] Sebastian [facility] Facility:H1 Start: 10-24-2021 End: 11-15-2021 ambulatory DIAMOND Kate THOMPSONLIZZY Facility:H1 Start: 10-22-2021 End: 10-23-2021 ambulatory [facility] Facility:H1 Start: 10-06-2021 ambulatory Van cortes [employer].OFFICE CLEANER Work Phone: [facility] Start: 09-30-2021 Refill Asia Pike MD Work Phone: [facility] Comment on above: Refill Request Start: 09-19-2021 End: 09-24-2021 Evaluation and management of inpatient DR PROSPER LEES Facility:H1 Start: 09-18-2021 End: 09-19-[address] DEVON MOREIRA Facility:[facility]1 Start: 07-11-2021 Refill Asia Pike MD Work Phone: [facility] Comment on above: Refill Request Start: 06-05-2021 Telephone encounter Van Olivarez [employer].OFFICE CLEANER Work Phone: [facility] Comment on above: Results Start: 02-05-2021 End: 02-13-2021 ambulatory UNKNOWN PROVIDER Facility:[facility] Procedures Date Procedure Procedure Detail Performing Clinician Start: 02-05-2022 Creatinine other source Asia Pike MD Work Phone: Start: 02-05-2022 Urnls dip stick/tabl et rgnt auto w/o microscopy Asia Pike MD Work Phone: Start: 01-12-2022 Prothrombin time Alissa Chavira [employer].OFFICE CLEANER Work Phone: Start: 12-01-2021 [facility] CHECK [facility] Provider Start: 11-29-2021 Microscopic examinat ion of blood, culture DR PROSPER LEES Comment on above: Performed By: #### B [id number] ####[facility] [address] [place] [address], [place] [address]Mj. Madelynlorri Leal Start: 11-27-2021 Insertion of Infusio [...] renal transplant KIDNEY TRANSPLANT STATUS Van Olivarez APPAREL PATTERN MAKER.[facility] Work Phone: History of renal transplant Kidney replaced by transplant Artur Leesjasvir APPAREL PATTERN MAKER.OFFICE CLEAN[employer] Work Phone: History of renal transplant Kidney replaced by transplant [facility] Work Phone: History of renal transplant Devon Ball Other History of renal transplant Kidney replaced by transplant Asia Pike MD Work Phone: Plan of Treatment Date Care Activity Detail Author Start: 02-26-2023 BP CONTROLLED (<130/80) BP CONTROLLE D (<130/80) [facility] Start: 02-05-2023 BP CONTROLLED (<130/80) BP CONTROLLE D (<130/80) [facility] Start: 01-12-2023 BP CONTROLLED (<130/80) BP CONTROLLE D (<130/80) [facility] Start: 11-17-2022 BP CONTROLLED (<130/80) BP CONTROLLE D (<130/80) [facility] Start: 10-16-2022 Influenza vaccination [facility] Start: 04-08-2022 BP CONTROLLED (<130/80) BP CONTROLLE D (<130/80) [facility] Start: 02-15-2022 ADVANCE DIRECTIVE DISCUSSION ADVANCE DIRECTIVE DISCUSSION [facility] Start: 02-15-2022 DEPRESSION ASSESSMENT DEPRESSION ASS ESSMENT [facility] Start: 02-05-2022 COVID-19 VACCINE (5 - Yung risk series) COVID-19 VACCINE (5 - Yung risk series) [facility] Start: 11-27-2021 COVID-19 VACCINE (4 - Booster for Yung series) COVID-19 VACCINE (4 - Booster for Yung series) [facility] Start: 11-04-2021 Hemoglobin A1c/Hemoglobin.total in Blood HBA1C [facility] Start: 10-16-2021 Influenza vaccination [facility] Start: 03-26-2021 COVID-19 VACCINE (3 - Yung risk 3-dose series) COVID-19 VACCINE (3 - Yung risk 3-dose series) [facility] Start: 03-26-2021 COVID-19 VACCINE (3 - Yung risk series) COVID-19 VACCINE (3 - Yung risk series) [facility] Start: 02-15-2021 ADVANCE DIRECTIVE DISCUSSION ADVANCE DIRECTIVE DISCUSSION [facility] Start: 02-15-2021 DEPRESSION ASSESSMENT DEPRESSION ASS ESSMENT [facility] Start: 01-05-2016 Hepatitis B screening URINE AL BUMIN:CREATININE RATIO [facility] Start: 04-06-2015 Hemoglobin A1c/Hemoglobin.total in Blood HBA1C [facility] Start: 11-22-2010 Hepatitis B surface antibody level LDL CHOLESTEROL [facility] Start: 2009 ADULT PREVNAR-13 ADULT PREVNAR-13 [facility] Start: 2009 PNEUMOVAX AGE 65 AND OVER WITH 5YR LOOKBACK (#1) PNEUMOVAX AGE 65 AND OVER WITH 5YR LOOKBACK (#1) [facility] Start: 1994 SHINGRIX VACCINE (1 of 2) SHINGRIX VACCINE (1 of 2) [facility] Start: 10-18-1963 HEPATITIS A (1 of 2 - Risk 2-dose series) HEPATITIS A (1 of 2 - Risk 2-dose series) [facility] Start: 10-18-1963 Hepatitis A Vaccine (1 of 2 - Risk 2-dose series) Hepatitis A Vaccine (1 of 2 - Risk 2-dose series) [facility] Start: 10-18-1963 SHINGRIX VACCINE (1 of 2) SHINGRIX VACCINE (1 of 2) [facility] Start: 10-18-1963 Urine microalbumin profile [facility] Start: 1962 ANNUAL PCP TEAM SENIOR DRAFTER MATTHEW DISEASE VISIT ANNUAL PCP TEAM CHRONIC DISEASE VISIT [facility] Start: 1956 Adult depression screening assessment DEPRESSION SCREENING [facility] Start: 1954 3 comp foot exam completed DIABETIC FOOT EXAM [facility] Start: 1954 Hepatitis C antibody , confirmatory test DILATED RETINAL EXAM [facility] Start: 1950 Pneumococcal Vaccine : 65+ (1 - PCV) Pneumococcal Vaccine: 65+ (1 - PCV) [facility] Start: 1950 PNEUMOCOCCAL: 65+ (1 - PCV) PNEUMOCOCCAL: 65+ (1 - PCV) [facility] Start: 1945 HEPATITIS A (1 of 2 - Risk 2-dose series) HEPATITIS A (1 of 2 - Risk 2-dose series) [facility] URINALYSIS, REFLEX MICROSCOPIC URINALYSIS, REFLEX MICROSCOPIC Lab Routine Screening for genitourinary condition Ordered: 10/06/2021 [facility] Work Phone: Comment on above: Ordered: 10/06/2021 URINALYSIS, REFLEX MICROSCOPIC URINALYSIS, REFLEX MICROSCOPIC Lab Routine Screening for genitourinary condition Ordered: 04/02/2022 [facility] Work Phone: Comment on above: Ordered: 04/02/2022 End: 11-17-2022 US LEG ARTERIAL PERIPH UNL VAS LAB US LEG ARTERIAL PERIPH UNL VAS LAB Vascular Lab Routine PAD (peripheral artery disease) (HCC) Nonhealing ulcer of heel (HCC) 1 Occurrences starting 11/17/2021 until 11/17/2022 [facility] Work Phone: Comment on above: 1 Occurrences starti ng 11/17/2021 until 11/17/2022 End: 11-17-2022 US LEG VEIN DVT UNL VAS LAB US LEG VEIN DVT UNL VAS LAB Vascular Lab Routine Acute deep vein thrombosis (DVT) of proximal end of right lower extremity (HCC) 1 Occurrences starting 11/17/2021 until 11/17/2022 [facility] Work Phone: Comment on above: 1 Occurrences starti ng 11/17/2021 until 11/17/2022 [facility] BROTH[facility] CT & VAS BROTHERS CT & VAS [facility] Immunizations Immunization Date Immunization Notes Care Provider [facility] 12-11-2021 COVID-19 booster vaccine, age 12+ yr, bivalent (PFIZER-BIONTECH) Paresh Fonseca MD Work Phone: [facility] 12-11-2021 influenza, high-dose , quadrivalent vaccine (FLUZONE HIGH DOSE QUADRIVALENT) Paresh Fonseca MD Work Phone: [facility] 12-11-2021 influenza virus vaccine, unspecified formulation Ariadna [employer] [facility] 03-09-2011 influenza virus vaccine, unspecified formulation Van Olivarez APPAREL PATTERN MAKER.OFFICE CLEANER Work Phone: [facility] 12-17-2007 influenza virus vaccine, unspecified formulation Van Sher APPAREL PATTERN MAKER.OFFICE CLEANER Work Phone: [facility] Work Phone: 02-11-2006 influenza virus vaccine, unspecified formulation Van Sher APPAREL PATTERN MAKER.OFFICE CLEANER Work Phone: [facility] Work Phone: 12-07-2003 influenza virus vaccine, unspecified formulation Vanbetzy Olivarez APPAREL PATTERN MAKER.OFFICE CLEANER Work Phone: [facility] Work Phone: 12-07-2003 pneumococcal polysaccharide vaccine, 23 valent Van Olivarez APPAREL PATTERN MAKER.OFFICE CLEANER Work Phone: [facility] Work Phone: NEGATED: Highlighted row has not occurred!12-10-2021 COVID-19 booster vaccine, age 12+ yr, bivalent (PFIZER-BIONTB&[employer] Tek) Paresh Fonseca MD Work Phone: [facility] NEGATED: Highlighted row has not occurred!12-10-2021 influenza, high-dose, quadrivalent vaccine (FLUZONE HIGH DOSE QUADRIVALENT) Paresh Fonseca MD Work Phone: [facility] Payers Date Payer Category Payer Medicare MEDICARE MEDICAR E A AND B [id number] 2009-Present [phone] [place] [address] Medicare [id number] 2009 Medicare MEDICARE MEDICAR E A AND B [id number] 2009-Present [phone] [place] [address] Medicare [id number] 2009 Unknown [employer] [place] [employer] [place] MEDIC[employer] SUPPLEMENT [id number] 2009-Present [phone] [address] [place] [address] Indemnity [id number] [id number] 2009 Unknown [employer] [place] [employer] [place] MEDIC[employer] SUPPLEMENT [id number] 2009-Present [phone] [address] [place] [address] Indemnity [id number] .[id number] 2009 Unknown [id number] 2.16.8 40.1.963895.19 2009 Unknown [id number] 1959 Medicare [id number] 1959 Self-pay 1944 Unknown [id number] 2.16.840.1.979471.3.579.2.732 1944 Unknown [id number] 2.16.840.1.048839.3.579.2.593 1944 Unknown [id number] 2.16.840.1.628392.3.579.2.593 1944 Unknown [id number] 2.16.840.1.952189.3.579.2.593 1944 Unknown [id number] 2.16.840.1.795341.3.579.2.593 1944 Unknown [id number] 2.16.840.1.306288.3.579.2.593 1944 Unknown [id number] 2.16.840.1.038898.3.579.2.593 1944 Unknown [id number] 2.16.840.1.833099.3.579.2.593 1944 Unknown [id number] 2.16.840.1.922405.3.579.2.593 1944 Unknown [id number] 2.16.840.1.593151.3.579.2.593 1944 Unknown [id number] 2.16.840.1.565509.3.579.2.593 1944 Unknown [id number] 2.16.840.1.880108.3.579.2.593 1944 Unknown [id number] 2.16.840.1.370087.3.579.2.593 1944 Unknown [id number] 2.16.840.1.462709.3.579.2.593 1944 Unknown [id number] 2.16.840.1.815913.3.579.2.593 1944 Unknown [id number] 2.16.840.1.092504.3.579.2.593 1944 Unknown [id number] 2.16.840.1.021845.3.579.2.593 1944 Unknown [id number] 2.16.840.1.412950.3.579.2.593 1944 Unknown [id number] 2.16.840.1.751286.3.579.2.593 1944 Unknown [id number] 2.16.840.1.590029.3.579.2.593 1944 Unknown [id number] 2.16.840.1.406593.3.579.2.593 1944 Unknown [id number] 2.16.840.1.723599.3.579.2.593 1944 Unknown [id number] 2.16.840.1.120319.3.579.2.593 1944 Unknown [id number] 2.16.840.1.256719.3.579.2.593 1944 Unknown [id number] 2.16.840.1.018253.3.579.2.593 1944 Unknown [id number] 2.16.840.1.624081.3.579.2.593 1944 Unknown [id number] 2.16.840.1.021443.3.579.2.593 1944 Unknown [id number] 2.16.840.1.773833.3.579.2.593 1944 Unknown [id number] 2.16.840.1.577641.3.579.2.593 1944 Unknown [id number] 2.16.840.1.622688.3.579.2.593 1944 Unknown [id number] 2.16.840.1.511379.3.579.2.593 1944 Unknown [id number] 2.16.840.1.906079.3.579.2.593 1944 Unknown [id number] 2.16.840.1.798225.3.579.2.593 1944 Unknown [id number] 2.16.840.1.368843.3.579.2.593 1944 Unknown [id number] 2.16.840.1.004105.3.579.2.593 1944 Unknown [id number] 2.16.840.1.815307.3.579.2.593 1944 Unknown [id number] 2.16.840.1.559179.3.579.2.593 1944 Unknown [id number] 2.16.840.1.506639.3.579.2.593 1944 Unknown [id number] 2.16.840.1.955951.3.579.2.593 1944 Unknown [id number] 2.16.840.1.930467.3.579.2.593 1944 Unknown [id number] 2.16.840.1.653809.3.579.2.593 1944 Unknown [id number] 2.16.840.1.217780.3.579.2.593 1944 Unknown [id number] 2.16.840.1.973318.3.579.2.593 1944 Unknown [id number] 2.16.840.1.853517.3.579.2.593 1944 Unknown [id number] 2.16.840.1.499610.3.579.2.593 1944 Unknown [id number] 2.16.840.1.277388.3.579.2.593 1944 Unknown [id number] 2.16.840.1.035452.3.579.2.593 Medicare Medicare Outpatient [id number] 2T [id number] Unknown [id number] 2.16.840.1.235941.3.579.2.593 Unknown [id number] 2.16.840.1.859466.3.579.2.593 Unknown [id number] 2.16.840.1.067639.3.579.2.531 Social History Date Type Detail Facility Start: 03-09-2011 End: 02-26-2022 Tobacco smoking status NHIS Ex-smoker [facility] Work Phone: End: 02-15-1975 History of tobacco use Current smoker [facility] Work Phone: End: 02-15-1975 History of tobacco use Cigarette Smoker [facility] Work Phone: Start: 04-08-2021 End: 02-26-2022 Alcohol intake Current drinker of alcohol (finding) [facility] Start: 1945 Sex Assigned At Not on file [facility] Start: 03-09-2011 End: 03-02-2022 Cigarettes smoked current (pack per day) - Reported 1 [facility] Work Phone: Start: 03-09-2011 End: 02-26-2022 Tobacco use and exposure Smokeless tobacco non-user [facility] Start: 09-25-2021 History SDOH Financial 5 [facility] Start: 09-25-2021 History SDOH Food Worry 1 [facility] Start: 09-25-2021 History SDOH Transpo rt Med 2 [facility] Start: 09-14-2021 End: 01-12-2022 Exposure to SARS-CoV-2 (event) Not sure [facility] Start: 02-26-2022 End: 03-02-2022 Sex Assigned At [facility] Work Phone: Start: 1945 Sex Assigned At Male F [facility] How hard is it for y ou to pay for the very basics like food, housing, medical care, and heating Not hard at all [facility] Work Phone: (I/We) worried whebrenden er (my/our) food would run out before (I/we) got money to buy more. Never true [facility] Work Phone: In the past 12 month s, was there a time when you were not able to pay the mortgage or rent on time? No [facility] Work Phone: Medical Equipment Procedure Code Equipment Code Equipment Original Text Equipment Identifier Dates Tray Powerline S urecuff 5fr Polyurethane Catheter 1 Lumen Microintroducer - [id number] Start: 12-06-2021 Clinical Notes 06-05-2021 to [...] are maintaining regular scheduled appts with their highway engineering technician. No bleeding complications Dec, Hyperlipidemia LDL goal [...] (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 of insulin (ICD-10 - Z79.4) [employer] Other 10-26-2023 Evaluation note* Encounter Date Diagnosis Assessment Notes Treatment Notes Treatment Clinical Notes Nov, Longstanding persistent atrial fibrillation (ICD-10 - I48.11) This patient is in NSR or rate controlled. This patient is anticoagulated to prevent thromboembolic events. They are maintaining regular scheduled appts with their highway engineering technician. No bleeding complications Nov, Hyperlipidemia LDL goal [...] Monthly labs to transplant clinic Nov, intermediate card tender (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 of insulin (ICD-10 - Z79.4) [employer] Other 09-28-2023 Evaluation note* Encounter Date Diagnosis [...] are maintaining regular scheduled appts with their highway engineering technician. No bleeding complications Oct, Type 1 diabetes [...] - Z94.0) Continue routine surveillance labs. Oct, intermediate card tender (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 of insulin (ICD-10 - Z79.4) [employer] Other 09-01-2023 Miscellaneous Notes* Telephone Encounter - Mary Martinez - 10/16/2022 1:08 PM EDT Pharmacy comment: REQUEST FOR 90 DAYS PRESCRIPTION. DX Code Needed. 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 No bleeding complications Sep, Type 1 diabetes [...] for cerebrovascular and cardiovascular disease. Sep, intermediate card tender (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 of insulin (ICD-10 - Z79.4) Sep, Kidney transplant status (ICD-10 - Z94.0) f/u transplant clinic Continue surveillance labs [employer] Other 08-08-2023 Miscellaneous Notes* Telephone Encounter - Ariadna Mcdowell Tech - 09/22/2022 8:58 AM EDT Pharmacy requesting refills as follows: Requested Prescriptions Pending Prescriptions Disp Refills tacrolimus IR (PROGRAF) 1 mg capsule Sig: Take 1 capsule by mouth DAILY AT 6 PM. Please review and advise. Ariadna Mcdowell, documented in this encounterUniversity Hospitals [facility]07-27-2023 Evaluation note* Encounter Date Diagnosis Assessment Notes Treatment Notes Treatment Clinical Notes Aug, Longstanding persistent atrial fibrillation (ICD-10 - I48.11) This patient is in NSR or rate controlled. This patient is anticoagulated to prevent thromboembolic events. They are maintaining regular scheduled appts with their highway engineering technician. No s/s bleeding Aug, Type 1 diabetes [...] for cerebrovascular and cardiovascular disease. Aug, intermediate card tender (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 of insulin (ICD-10 - Z79.4) Aug, Kidney transplant status (ICD-10 - Z94.0) Continue close surveillance w/ labs [employer] Other 07-26-2023 NotePatient here for 1.5 year follow up and device check. Lightheaded in the office today, as BP is very low. He denies chest pain, SOB, palpitations, and bleeding on warfarin. Had routine labs last week. Review of Systems Musculoskeletal: Positive for arthritis, joint pain and myalgias. Neurological: Positive for light-headedness. All other systems reviewed and are negative.[facility] 09-09-2022 NoteUT Electrophysiology Consult Note Reason for [...] at about 50-60 systolic. patient with friend/ dump truck driver off highway from facility, we will take patient to [...] of the right coronary artery with robust lail-bi-tcuax collaterals. 5. Normal global left ventricular systolic [...] Follow up with Dr. Galvez in the [facility] in the next 2 weeks; he may follow up with Dr. Orosco as needed for interventional issues. 5. Follow up with Dr. Devon Moreira as scheduled. PMH: Past Medical History: Diagnosis Date Abnormal ECG Arrhythmia Atrial fibrillation (CMS/HCC) Chronic kidney disease Coronary artery disease Diabetes mellitus (CMS/HCC) (more content not included)...[facility]06-22-2023 Evaluation note* Encounter Date Diagnosis Assessment Notes [...] are maintaining regular scheduled appts with their highway engineering technician. No bleeding complications Jul, Type 1 diabetes [...] risk for cerebrovascular and cardiovascular disease. Jul, intermediate card tender (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 of insulin (ICD-10 - Z79.4) Jul, Kidney transplant status (ICD-10 - Z94.0) Monthly labs, ongoing surveillance from transplant clinic [employer] Other 05-15-2023 Progress note Author Sadia Aguilar June 29, 2022 2:47pm Note Date/Time June 29, 2022 2:46p m [facility] [address] [place] [address] Wound Center Provider Note Signed Patient: Alex Almonte MR#: [id number] : 1945 Acct:[id number] Age/Sex: 76 / M Copies to: DO Sadia Whyte APRN~ HPI Date of Visit Date of Visit: Date of Service: 06/29/2022 Time of Service: 14:45 Narrative HPI: 12/30/21 Alex is a 76 year old [facility] an[facility] visit for eval and treatment of a sacral/coccyx area pressure ulcer. He resides at [facility]. There is an PILLAR WORKER present for the visit. Medicalhoney gel will [...] his brief that was cleaned by this gag writer as well as another nursing staff [...] from initial visit here Mode of Arrival/ Test Case Developer: Facility vehicle Assistive Device Used Today: Wheelchair and Indra Lives with:: Care/Nursing Facility Appetite Description: Within Normal Limits Who helps w/ dressing change?: Nursing Facility Why Do You Need Help?: Can't Reach Ulcer, Limited mobility and Taxing effort to leave home Smoking Status: Former smoker [facility] Medical History (Updated 03/03/22 @ 14:41 by [...] Ulcer/Injury Staging: Unstageable Bed Appearance: Beefy Red, [place], Yellow and Rolled Edges Percent of Wound [...] By: <Electronically signed by DAVID Aguilar> 06/29/221446 [facility] Work Phone: 1(909) 399-401405-11-2023 Evaluation note* Encounter Date Diagnosis Assessment Notes [...] are maintaining regular scheduled appts with their highway engineering technician. No bleeding complications June, Hyperlipidemia LDL goal <100 (ICD-10 - E78.5) Instructed on diet and exercise with continued statin therapy.Discussed the beneficial effects of lowering cholesterol in reducing the risk for cerebrovascular and cardiovascular disease. June, intermediate card tender (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 of insulin (ICD-10 - Z79.4) June, Kidney transplant status (ICD-10 - Z94.0) No s/s rejection [employer] Other 04-24-2023 Progress note Author Sadia Aguilar June 08, 2022 2:10pm Note Date/Time June 08, 2022 2:1 0pm [facility] [address] [place] [address] Wound Center Provider Note Signed Patient: Alex Almonte MR#: [id number] : 1945 Acct:[id number] Age/Sex: 76 / M Copies to: Devon Moreira,DO Sadia Aguilar APRN~ HPI Date of Visit Date of Visit: Date of Service: 06/08/2022 Time of Service: 14:07 Narrative HPI: 12/30/21 Alex is a 76 year old male [facility] an[facility] visit for eval and treatment of a sacral/coccyx area pressure ulcer. He resides at [facility]. There is an PILLAR WORKER present for the visit. Medicalhoney gel will [...] his brief that was cleaned by this gag writer as well as another nursing staff [...] from initial visit here Mode of Arrival/ Test Case Developer: Facility vehicle Assistive Device Used Today: Wheelchair and Indra Lives with:: Care/Nursing Facility Appetite Description: Within Normal Limits Who helps w/ dressing change?: Nursing Facility Why Do You Need Help?: Can't Reach Ulcer, Limited mobility and Taxing effort to leave home Smoking Status: Former smoker [facility] Medical History (Updated 03/03/22 @ 14:41 by [...] Ulcer/Injury Staging: Unstageable Bed Appearance: Beefy Red, [place], Yellow and Rolled Edges Percent of Wound [...] <Electronically signed by DAVID Aguilar> 06/08/22 1410 [facility] Work Phone: 1(856) 767-470204-21-2023 Evaluation note* Encounter Date Diagnosis Assessment Notes [...] are maintaining regular scheduled appts with their highway engineering technician. May, intermediate (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 of insulin (ICD-10 - Z79.4) May, Kidney transplant status (ICD-10 - Z94.0) routine labs per clinic. 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 No open ulcerations present Pain controlled [employer] Other 03-27-2023 Progress note Author Sadia Aguilar May 11, 2022 1:41pm Note Date/Time May 11, 2022 1:4 0pm [facility] [address] [place] [address] Wound Center Provider Note Signed Patient: Alex Almonte MR#: [id number] : 1945 Acct:[id number] Age/Sex: 76 / M Copies to: Devon Moreira,DO Sadia Aguilar, APPAREL PATTERN MAKER~ HPI Date of Visit Date of Visit: Date of Service: 05/11/2022 Time of Service: 13:38 Narrative HPI: 12/30/21 Alex is a 76 year old male [facility] an[facility] visit for eval and treatment of a sacral/coccyx area pressure ulcer. He resides at [facility]. There is an PILLAR WORKER present for the visit. Medicalhoney gel will [...] his brief that was cleaned by this gag writer as well as another nursing staff [...] from initial visit here Mode of Arrival/ Test Case Developer: Facility vehicle Assistive Device Used Today: Wheelchair and Indra Lives with:: Care/Nursing Facility Appetite Description: Within Normal Limits Who helps w/ dressing change?: Nursing Facility Why Do You Need Help?: Can't Reach Ulcer, Limited mobility and Taxing effort to leave home Smoking Status: Former smoker [facility] Medical History (Updated 03/03/22 @ 14:41 by [...] Ulcer/Injury Staging: Unstageable Bed Appearance: Beefy Red, [place] and Yellow Percent of Wound Bed Granulated/Red: [...] <Electronically signed by DAVID Aguilar> 05/11/22 134[address] [facility] Work Phone: 1(465) 939-400903-23-2023 Evaluation note* Encounter Date Diagnosis Assessment Notes [...] are maintaining regular scheduled appts with their highway engineering technician. Apr, Type 1 diabetes mellitus with hyperglycemia [...] reviewed at the office visit Apr, intermediate card tender (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 of insulin (ICD-10 - Z79.4) Apr, Kidney transplant status (ICD-10 - Z94.0) Serial labs by clinic Hydrate, avoid NSAIDS [employer] Other 03-10-2023 NoteHNO ID: [id number] Author: Keyur Brown MD Service: ? Author Type: Physician Type: Progress Notes Filed: 04/24/2022 10:32 AM Note Text: Encounter opened in error, patient not seen.[facility]02-28-2023 Progress note Author Sadia Aguilar April 14, 2022 2:19pm Note Date/Time April 14, 2022 2:18pm [facility] [address] [place] [address] Wound Center Provider Note Signed Patient: Alex Almonte MR#: [id number] : 1945 Acct:[id number] Age/Sex: 76 / M Copies to: DO Sadia Whyte APRN~ HPI Date of Visit Date of Visit: Date of Service: 04/14/2022 Time of Service: 14:18 Narrative HPI: 12/30/21 Alex is a 76 year old [facility] an[facility] visit for eval and treatment of a sacral/coccyx area pressure ulcer. He resides at [facility]. There is an PILLAR WORKER present for the visit. Medicalhoney gel will [...] his brief that was cleaned by this gag writer as well as another nursing staff [...] from initial visit here Mode of Arrival/ Test Case Developer: Facility vehicle Assistive Device Used Today: Wheelchair and Indra Lives with:: Care/Nursing Facility Appetite Description: Within Normal Limits Who helps w/ dressing change?: Nursing Facility Why Do You Need Help?: Can't Reach Ulcer, Limited mobility and Taxing effort to leave home Smoking Status: Former smoker [facility] Medical History (Updated 03/03/22 @ 14:41 by [...] Ulcer/Injury Staging: Unstageable Bed Appearance: Beefy Red, [place] and Yellow Percent of Wound Bed Granulated/Red: [...] <Electronically signed by DAVID Aguilar> 04/14/22 14[address] [facility] [place] [facility] Work Phone: 1(796) 733-351602-16-2023 NotePatient Outreach (DAVISMMN) ALEX ALMONTE ([id number]) 1945 M TRN Date Time Provider Department 04/02/22 VAN OLIVAREZ During your visit today, we recorded the following information about you: Allergies As of Date: 04/02/2022 Noted Allergy Reaction PYRIDOSTIGMINE BROMIDE 08/04/2021 8 - GI Upset Date Reviewed: 02/26/2022 Reviewed by: Braden Abel MA - Fully Assessed Visit Diagnosis:Screening for genitourinary condition [Z13.89] Order(s):URINALYSIS, REFLEX MICROSCOPIC [EWJ2378] Order #: [id number] Prescriptions as of 04/06/2022 - tacrolimus IR [...] by mouth daily with lunch. 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 DIABETES UNCOMPL ADULT-UNCONTRLLED [[id number]] 02/24/2002 KIDNEY TRANSPLANT STATUS [Z94.0] 09/07/2003 PROPHYLACTIC IMMUNOTHERAPY [Z29.8] 07/30/2006 RETIREMENT STEROIDS [ZMQ9498] 07/30/2006 VITAMIN D DEFICIENCY NOS [E55.9] 09/07/2008 MIXED HYPERLIPIDEMIA [E78.2] 09/07/2008 SUMMARY 01/04/2015 ILIANA (acute kidney injury) (HCC) [N17.9] 01/04/2015 Diabetes mellitus (HCC) [E11.9] 01/04/2015 Cellulitis [L03.90] 01/04/2015 Diarrhea [R19.7] 01/04/2015 VTE (venous thromboembolism) [I82.90] 09/24/2021 CAD (coronary artery disease) [I25.10] 2016 Paroxysmal atrial fibrillation (HCC) [I48.0] HTN (hypertension) [I10] SA node dysfunction ([facility]) [I49.5] Altered tissue perfusion [R09.89] 09/30/2021 PAD (peripheral artery disease) (HCC) [I73.9] 09/26/2021 Osteomyelitis (HCC) [M86.9] 11/29/2021 Class 1 obesity due to excess calories with ser*11/29/2021 Mixed hyperlipidemia due to type 2 diabetes myles*11/29/2021 Type 2 diabetes mellitus with diabetic peripher*11/29/2021 Atherosclerosis of big sandy artery of extremity w*11/29/2021 Malnutrition of moderate degree (HCC) [E44.0] 12/01/2021 Dermatitis associated with moisture [L30.8] 12/04/2021 Encounter Status:Closed by [place], [employer] on 04/06/22[facility] 03-30-2022 Miscellaneous Notes* Telephone Encounter - Van Olivarez APRN.OFFICE CLEANER - 03/30/2022 12:16 PM EST The following [...] Katina Duque documented in this encounterUniversity Hospitals Elyria Medical Center02-07-2023 Progress note Author Sadia Aguilar March 24, 2022 3:00pm Note Date/Time March 24, 2022 2 :59pm [facility] [address] [place] [address] Wound Center Provider Note Signed Patient: Alex Almonte MR#: [id number] : 1945 Acct:[id number] Age/Sex: 76 / M Copies to: DO Sadia Whyte APRN~ HPI Date of Visit Date of Visit: Date of Service: 03/24/2022 Time of Service: 14:58 Narrative HPI: 12/30/21 Alex is a 76 year old male [facility] an[facility] visit for eval and treatment of a sacral/coccyx area pressure ulcer. He resides at [facility]. There is an PILLAR WORKER present for the visit. Medicalhoney gel will [...] his brief that was cleaned by this gag writer as well as another nursing staff [...] from initial visit here Mode of Arrival/ Test Case Developer: Facility vehicle Assistive Device Used Today: Wheelchair and Indra Lives with:: Care/Nursing Facility Appetite Description: Within Normal Limits Who helps w/ dressing change?: Nursing Facility Why Do You Need Help?: Can't Reach Ulcer, Limited mobility and Taxing effort to leave home Smoking Status: Former smoker [facility] Medical History (Updated 03/03/22 @ 14:41 by [...] Ulcer/Injury Staging: Unstageable Bed Appearance: Beefy Red, [place] and Yellow Percent of Wound Bed Granulated/Red: [...] <Electronically signed by DAVID Aguilar> 03/24/22 [address] [facility] Work Phone: 1(461) 581-133401-17-2023 Progress note Author Sadia Aguilar March 03, 2022 2:41pm Note Date/Time March 03, 2022 2 :41pm [facility] [address] [place] [address] Wound Center Provider Note Signed Patient: Alex Almonte MR#: [id number] : 1945 Acct:[id number] Age/Sex: 76 / M Copies to: DO Sadia Whyte APRN~ HPI Date of Visit Date of Visit: Date of Service: 03/03/2022 Time of Service: 14:38 Narrative HPI: 12/30/21 Alex is a 76 year old male [facility] an[facility] visit for eval and treatment of a sacral/coccyx area pressure ulcer. He resides at [facility]. There is an PILLAR WORKER present for the visit. Medicalhoney gel will [...] his brief that was cleaned by this gag writer as well as another nursing staff [...] from initial visit here Mode of Arrival/ Test Case Developer: Facility vehicle Assistive Device Used Today: Wheelchair and Indra Lives with:: Care/Nursing Facility Appetite Description: Within Normal Limits Who helps w/ dressing change?: Nursing Facility Why Do You Need Help?: Can't Reach Ulcer, Limited mobility and Taxing effort to leave home Smoking Status: Former smoker [facility] Medical History (Updated 03/03/22 @ 14:41 by [...] Ulcer Pressure Ulcer/Injury Staging: Unstageable Bed Appearance: [place] and Yellow Percent of Wound Bed Granulated/Red: 90 Percent of Devitalized: 10 Length (cm): 2.2 Width (cm): 1.8 Depth (cm): 1.9 CM Sq: 3.960 Surrounding Tissue Appearance: [place], Hyperpigmented and Satellite lesions Surrounding Tissue Temp: [...] <Electronically signed by DAVID Aguilar> 03/03/22 [address] [facility] Work Phone: 1(834) 596-144701-13-2023 Miscellaneous Notes* Telephone Encounter - RAUL Davidson - 02/27/2022 10:24 AM EST Patient phones requesting refills as follows: Per pts sister takes 1 mg in AM and 1 mg in PM Requested Prescriptions Pending Prescriptions Disp Refills tacrolimus IR (PROGRAF) 1 mg capsule Sig: Take 2 capsules by mouth DAILY (6 AM). Please review and advise. RAUL Davidson documented in this encounterUniversity Hospitals Elyria Medical Center01-12-2023 NoteHNO ID: [id number] Author: Hina Peterson MD Service: ? Author Type: Physician Type: Progress Notes Filed: 02/26/2022 4:31 PM Note Text: [facility] Vascular [facility] Thoracic [facility] DEPARTMENT OF VASCULAR SURGERY OUTPATIENT VISIT DATE [...] his postop visit. He has been in longterm since then and has been recovering from his acute on chronic congestive heart failure. His wound has largely been healing without any issues and the maxwell and sutures were removed at the nursing facility. He comes here with a lateral wound eschar. He denies any fevers, chills, or any drainage. He is on anticoagulation. 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 Magic Cup Burke with lunch aspirin, enteric coated (ASPIRIN, ENTERIC COATED) 81 mg EC tablet Take 1 tablet by mouth once daily. predniSONE (DELTASONE) 5 mg tablet TAKE 1 TABLET BY MOUTH EVERY DAY oxyCODONE IR (ROXICODONE) 5 mg immediate release tablet 1-2 tablets by ORAL/FEEDING TUBE route every 3 hours as needed. Food Supplement, Lactose-Free (ENSURE MAX (more content not included)... [facility]01-12-2023 History of Present illness Narrative* Hina Peterson MD - 02/26/2022 4:25 PM EST Images from the original note were not included. [facility] DEPARTMENT OF VASCULAR SURGERY OUTPATIENT VISIT DATE [...] his postop visit. He has been in longterm since then and has been recovering from his acute on chronic congestive heart failure. His wound has largely been healing without any issues and the maxwell and sutures [facility]. He comes here with a lateral wound eschar. He denies any fevers, chills, or any drainage. He is on anticoagulation. 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 Patient on mycophenolate mofetil ,cellcept and prednisone Mixed hyperlipidemia due to type 2 diabetes mellitus ([facility]) 11/29/2021 Osteomyelitis ([facility]) 11/29/2021 Paroxysmal atrial fibrillation ([facility]) Renal transplant, status post SA node dysfunction ([facility]) s/p pacemaker Type 2 diabetes mellitus with diabetic neuropathy, with long-term current use of insulin ([facility]) 02/24/2002 PAST SURGICAL HISTORY Procedure Laterality Date [...] by mouth daily with lunch. Magic Cup Burke with lunch aspirin, enteric coated (ASPIRIN, ENTERIC [...] 4:26 PM documented in this encounterUniversity Hospitals Elyria Medical Center01-05-2023 Miscellaneous Notes* Telephone Encounter - [...] Home and cell number(Ask for Alex's nurse) [phone] Diagnosis 4 mo f/u wound check Yumiko Mcclain documented in this encounterUniversity Hospitals Elyria Medical Center01-05-2023 Miscellaneous Notes* Telephone Encounter - [...] Medrano RN documented in this encounterUniversity Hospitals Elyria Medical Center01-04-2023 Miscellaneous Notes* Telephone Encounter - [...] Tavares MA documented in this encounterUniversity Hospitals Elyria Medical Center12-27-2022 Progress note Author Sadia Aguilar February 10, 2022 3:47pm Note Date/Time February 10, 2022 3:47pm [facility] [address] [place] [address] Wound Center Provider Note Signed Patient: Alex Almonte MR#: [id number] : 1945 Acct:[id number] Age/Sex: 76 / M Copies to: DO Sadia Whyte APRN~ HPI Date of Visit Date of Visit: Date of Service: 02/10/2022 Time of Service: 15:44 Narrative HPI: 12/30/21 Alex is a 76 year old male [facility] an[facility] visit for eval and treatment of a sacral/coccyx area pressure ulcer. He resides at [facility]. There is an PILLAR WORKER present for the visit. Medicalhoney gel will [...] his brief that was cleaned by this gag writer as well as another nursing staff member, few weeks to follow up Subjective Pain Coccyx: Pain Description: Intermittent Pain Intensity: 0 Wound/Ulcer History When did wound start?: 4 weeks ago- from initial visit here Mode of Arrival/ Test Case Developer: Facility vehicle Assistive Device Used Today: Wheelchair and Indra Lives with:: Care/Nursing Facility Appetite Description: Within Normal Limits Who helps w/ dressing change?: Nursing Facility Why Do You Need Help?: Can't Reach Ulcer, Limited mobility and Taxing effort to leave home Smoking Status: Former smoker [facility] Medical History (Updated 01/20/22 @ 14:21 by [...] Ulcer Pressure Ulcer/Injury Staging: Unstageable Bed Appearance: [place] and Yellow Percent of Wound Bed Granulated/Red: 90 Percent of Devitalized: 10 Length (cm): 2.5 Width (cm): 2.3 Depth (cm): 2.1 CM Sq: 5.750 Surrounding Tissue Appearance: [place], Hyperpigmented and Satellite lesions Surrounding Tissue Temp: [...] <Electronically signed by DAVID Aguilar> 02/10/22 [address] [facility] Work Phone: 1(394) 796-422912-22-2022 NoteHNO ID: [id number] Author: Asia Pike MD Service: ? Author Type: Physician Type: Progress Notes Filed: 02/05/2022 9:38 AM Note Text: [facility] Urologic and Kidney [facility] Transplant Follow up Portions of this note [...] and snacks patient declined. Indra scale at [facility]: 166.2 lbs per patient. Bed sore on coccyx causing discomfort. Being changed regularly at SNF- reported to be smaller around but still as deep. Patient not very up to date with medications. Patient brought paperwork from [facility] with all medications being received. Patient unsure if they have been drawing labs regularly. Last Tac from 01/19: 12.9 and K 5.9. In need of current labs. Lab orders will be sent with patient and follows as below: Kidney and Pancreas Transplant Standing Lab Orders [address] [place], [place] [address] February 05, 2022 Alex Kate UrbinaJayuya 1945 [id number] STANDARD TESTING: Diagnosis Codes: Z94.0 Kidney Transplant [...] AT YOUR LABORATORY FACILITY AND FAX TO [phone]. PLEASE CALL [phone]. Provider: Dr. Pike Current Outpatient Medications Medication [...] by mouth daily with lunch. Magic Cup Burke with lunch aspirin, enteric coated (ASPIRIN, ENTERIC COATED) 81 mg EC tablet Take 1 tablet by mouth once daily. atorvastatin (LIPITOR) 40 mg tablet 1 tablet by ORAL/FEEDING TUBE route daily at bedtime. (more content not included)...[facility]12-22-20[facility] History of Present illness Narrative* Asia Pike MD - 02/05/2022 8:20 AM EST Images from the original note were not included. [facility] Urologic and Kidney [facility] Transplant Follow up Portions of this note [...] and snacks patient declined. Indra scale at [facility]: 166.2 lbs per patient. Bed sore on coccyx causing discomfort. Being changed regularly at SNF- reported to be smaller around but still as deep. Patient not very up to date with medications. Patient brought paperwork from [employer] with all medications being received. Patient unsure if they have been drawing labs regularly. Last Tac from 01/19: 12.9 and K 5.9. In need of current labs. Lab orders will be sent with patient and follows as below: Kidney and Pancreas Transplant Standing Lab Orders [address] [facility] [address] [place], [place] [address] February 05, 2022 Alex Kate Almonte 1945 [id number] STANDARD TESTING: Diagnosis Codes: Z94.0 Kidney Transplant [...] AT YOUR LABORATORY FACILITY AND FAX TO [phone]. PLEASE CALL [phone]. Provider: Dr. Pike Current Outpatient Medications Medication [...] by mouth daily with lunch. Magic Cup Burke with lunch aspirin, enteric coated (ASPIRIN, ENTERIC [...] Pike MD documented in this encounterUniversity Hospitals Elyria Medical Center12-06-2022 Progress note Author Sadia Aguilar January 20, 2022 2:21pm Note Date/Time January 20, 2022 2 :21pm [facility] [address] [place] [address] Wound Center Provider Note Signed Patient: Alex Almonte MR#: [id number] : 1945 Acct:[id number] Age/Sex: 76 / M Copies to: DO Sadia Whyte APRN~ HPI Date of Visit Date of Visit: Date of Service: 01/20/2022 Time of Service: 14:17 Narrative HPI: 12/30/21 Alex is a 76 year old male [facility] an[facility] visit for eval and treatment of a sacral/coccyx area pressure ulcer. He resides at [facility]. There is an PILLAR WORKER present for the visit. Medicalhoney gel will [...] from initial visit here Mode of Arrival/ Test Case Developer: Facility vehicle Assistive Device Used Today: Wheelchair and Indra Lives with:: Care/Nursing Facility Appetite Description: Within Normal Limits Who helps w/ dressing change?: Nursing Facility Why Do You Need Help?: Can't Reach Ulcer, Limited mobility and Taxing effort to leave home Smoking Status: Former smoker [facility] Medical History (Updated 01/20/22 @ 14:21 by [...] Ulcer Pressure Ulcer/Injury Staging: Unstageable Bed Appearance: [place] and Yellow Percent of Wound Bed Granulated/Red: 40 Percent of Devitalized: 60 Length (cm): 5.2 Width (cm): 3.4 Depth (cm): 1.8 CM Sq: 17.680 Surrounding Tissue Appearance: [place] and Hyperpigmented Surrounding Tissue Temp: Warm Drainage [...] <Electronically signed by DAVID Aguilar> 01/20/22 14[address] [facility] [place] [facility] Work Phone: 1([phone]) 964-472912-06-2022 Miscellaneous Notes* Telephone Encounter - Van Olivarez APRN.CNP - 01/20/2022 1:12 PM EST Labs noted from yesterday. Pt is currently residing at [facility], I spoke with the Nurse, the results has been addressed by Physician caring for pt. He had been placed on Chlor Con and this has been discontinued and hyperkalemia has been treated. Van Olivarez APRN.CNP documented in this encounterUniversity Hospitals Elyria Medical Center11-28-2022 Surgical operation note* Brief Op Note - Mibsah Landis PA-C - 01/12/2022 10:41 AM EST BRIEF OPERATIVE / PROCEDURE NOTE LOG ID: [id number] SURGERY/PROCEDURE DATE: 01/12/2022 INCISION/PROCEDURE START TIME: 10:32 AM INCISION CLOSE/PROCEDURE END TIME: 10:35 AM SURGEON(S)/PROCEDURALIST(S) AND CHEF(S): Misbah Landis PA-C SURGERY/PROCEDURE(S): Removal tunneled vascular access catheter under local anesthesia ANESTHESIA: Procedural Sedation FINDINGS: Catheter removed intact ESTIMATED BLOOD LOSS: 0 ml SPECIMENS: None COMPLICATIONS: None PRE-OP/PRE-PROCEDURE DIAGNOSIS: Foot Ulcer POST-OP/POST-PROCEDURE DIAGNOSIS: Same as Preop SIGNATURE: Misbah Landis PA-C PATIENT NAME: Alex Almonte DATE: January 12, 2022 TIME: 10:42 AM documented in this encounterUniversity Hospitals Elyria Medical Center11-22-2022 Nurse Note* Laxmi Archibald RN - 01/06/2022 1:55 PM EST Pre-procedure instructions: Contacted patient's sister, Munira Brothers and nurse at [facility], Jada ([phone]) andconfirmed appt. for Gerhard removal scheduled on 01/12/22, at [facility]. If instructions are not followed your [...] signed. Arrival at 9:30am to desk [facility] and check in for your procedure. Anesthesiologist Assistant Certified/Transportation: How will you be arriving for your procedure? Ambulance service. To be arranged by [facility]. If you develop any of the following symptoms before your procedure, please call [phone]. Chills, joint pain, rash, sore throat, cough, loss of smell, reddened eyes, vomiting, abdominal pains, diarrhea, loss of taste, severe headache, weakness, bruising or bleeding, fever, muscle pain, shortness of breath Recovery expectations: You can expect to be in recovery for 30 minutes following the procedure. Written instructions provided to patient via fypiot If you have any questions please call [phone] documented in this encounterUniversity Hospitals Elyria Medical Center11-15-2022 Progress note Author Sadia Aguilar December 30, 2021 1:49pm Note Date/Time December 30, 2021 1:49pm [facility] [address] [place] [address] Wound Center Provider Note Signed Patient: Alex Almonte MR#: [id number] : 1945 Acct:[id number] Age/Sex: 76 / M Copies to: DO Sadia Whyte APRN~ HPI Date of Visit Date of Visit: Date of Service: 12/30/2021 Time of Service: 13:44 Narrative HPI: 12/30/21 Alex is a 76 year old [facility] an[facility] visit for eval and treatment of a sacral/coccyx area pressure ulcer. He resides at [facility]. There is an PILLAR WORKER present for the visit. Medicalhoney gel will [...] start?: 4 weeks ago Mode of Arrival/ Test Case Developer: Facility vehicle Assistive Device Used Today: Wheelchair and Indra Lives with:: Care/Nursing Facility Appetite Description: Within Normal Limits Who helps w/ dressing change?: Nursing Facility Why Do You Need Help?: Can't Reach Ulcer, Limited mobility and Taxing effort to leave home Smoking Status: Former smoker [facility] Medical History (Updated 12/30/21 @ 13:49 by [...] 0.1 CM Sq: 38.500 Surrounding Tissue Appearance: [place] and Hyperpigmented Surrounding Tissue Temp: Warm Drainage [...] By: <Electronically signed by DAVID Aguilar> 12/30/21 [address] [facility] [place] [facility] Work Phone: 1(701) 733-913211-15-2022 History of Present illness Narrative* Paresh Fonseca [...] the rehab facility He is currently at [facility] in [facility] Seen on video together with Zoe -history obtained from bedside nursing. he is getting up in a chair, working with PT diet is back to regular hes doing well. 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 has scabs on the R lateral side but no wound care concerns. It continues to heal. He has a follow-up with vascular surgery later December 2021. has a sacral wound -- he has local wound care following this at [facility] WBC 6.0, creatinine -- 0.8. alt 12 [...] by mouth daily with lunch. Magic Cup Burke with lunch aspirin, enteric coated (ASPIRIN, ENTERIC [...] is a 76 year old male from [facility]. 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 History of PAD CAD status post CABG, diabetes, atrial fibrillatioN He originally presented [facility] for having altered mental status and right [...] 3. Status post right heel I&D at [facility] on 11/24/2021. 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 4. CKD - s/p gerhard placement 5. immunocompromised Status post right open above the ankle citbxilhfd63/17 - Enterobacter and MRSA from cultures Gram-positive [...] will need to coordinate with his SNF [phone] --our ID office will need to arrange for IR gerhard removal. Return to ID as needed 10 Minutes spent via virtual visit. SIGNATURE: Paresh Fonseca MD PATIENT NAME: Alex Almonte DATE: December 30, 2021 TIME: 9:52 AM documented in this encounterUniversity Hospitals Elyria Medical Center11-01-2022 Miscellaneous Notes* Telephone Encounter - Sulma Pardo - 12/16/2021 3:13 PM EDT Pt occupational therapy specialist is requesting orders for Stomp ampushield to be taken off pressure relief because it is causing sores on the thigh. Thanks, Sulma Pardo Jack Frame Tender documented in this encounterUniversity Hospitals Elyria Medical Center10-31-2022 Miscellaneous Notes* Telephone Encounter - Gwen Alfredo Adm Asst I - 12/15/2021 4:11 PM EDT Rupa LYLES from [facility] [phone] called to report IV Vancomycin was started until today. Patient missed 3 days, should patient makeup missed doses? Please advise. Gwen Alfredo Adm Asst I documented in this encounterUniversity Hospitals Elyria Medical Center10-21-2022 Instructions* Patient Instructions* Paresh Fonseca [...] serious illness Are taking any medications (prescription, [id number], vitamins, or herbal products) How will I receive EVUSHELD? EVUSHELD consists of two investigational medicines, tixagevimab and cilgavimab. You will receive 1 dose of EVUSHELD, consisting of 2 separate injections (tixagevimab and cilgavimab). EVUSHELD will be given to you by your healthcare provider as 2 intramuscular injections, given one after the other. Viruses can bladder changer time (mutate) and develop into a [...] caused by certain SARS-CoV-2 variants: Viruses can bladder changer time (mutate) and develop into a [...] treatment or prevention of COVID-19 go to https://www.fda.gov/fdvnlnagi-qclaczbbmwkc-xfy- response/bqq-opqjj-ybitgyquat-sem-cdqzgk-uenivxrtj/tusrnwbwf-aeu-zfqwdtykqchcf for more information. It is your choice [...] to FDA MedWatch at www.fda.gov/medwatch or call 3-694-JFY-0917 or call [employer] . Additional Information If you have questions, visit the website or call the telephone number provided below. Website Telephone number [email or web address] How can I learn more about COVID-19? Ask your healthcare provider. Visit https://www.cdc.gov/COVID19 Contact your local or state public health department. What is an Emergency Use Authorization? The [place] FDA has made EVUSHELD (tixagevimab co-packaged with cilgavimab) available under an emergency access mechanism called an Emergency Use Authorization EUA. The EUA is supported by a [employer] [place] of Health and Human Service ([facility]) declaration that circumstances exist to justify [...] monohydrate, polysorbate 80, sucrose, water. Distributed by: [employer], [place], [place] Manufactured for: [employer], [place], [place] [employer] 2021. All rightsreserved. documented in this encounterUniversity Hospitals Ely[facility] Center10-21-2022 Miscellaneous Notes* Telephone Encounter - Paresh Fonseca MD - 12/05/2021 3:05 PM EDT Evusheld (tixagevimab/cilgavimab) Eligibility and Patient Discussion The patient agrees to receive Evusheld (tixagevimab 300 mg and cilgavimab 300 mg) at [place]. The patient verbalized understanding of repeating a COVID test 72 hours prior to the injections. called up patient in response to her [employer] message today she tested covid negative on a rapid test on Wednesday this week Discussed evushed fact sheet and she agrees to proceed she will retest again today to be scheduled for Friday 12/[address] [facility] Paresh Fonseca MD documented in this encounterUniversity Hospitals Ely[facility] Center10-03-2022 Instructions* Patient Instructions* No Reeder DO - 11/17/2021 4:26 PM EDT -- continue coumadin -- will get vascular ultrasound for vein and artery of your right leg -- will have you see my interventional cardiology partner regarding your peripheral artery disease and if your artery disease is impairing your wound healing for the leg ulcer documented in this encounterUniversity Hospitals Elyria Medical Center10-03-2022 History of Present illness Narrative* No Reeder DO - 11/17/2021 3:53 PM EDT Images from the original note were not included. Heart and Vascular Roberta Glenroy Ver[facility] Department of Cardiovascular Medicine SECTION [...] DVT scan. Leg elevation. No Reeder DO, [facility] Vascular Medicine documented in this encounter[address]16-2022 History of Past illness Narrative* Problem Noted Date Resolved Date Altered tissue perfusion 2 022 documented as of this encounter (statuses as of 09/30/2021) [address]16-2022 History of Past illness Narrative* Problem Noted Date Resolved Date Altered tissue perfusion 2 022 documented as of this encounter (statuses as of 10/09/2021) [address]16-2022 History of Past illness Narrative* Problem Noted Date Resolved Date Altered tissue perfusion 2 022 documented as of this encounter (statuses as of 11/18/2021) [address]16-2022 History of Past illness Narrative* Problem Noted Date Resolved Date Altered tissue perfusion 2 022 documented as of this encounter (statuses as of 12/01/2021) [address]16-2022 History of Past illness Narrative* Problem Noted Date Resolved Date Altered tissue perfusion 16/2 022 documented as of this encounter (statuses as of 12/05/2021) [address]16-2022 History of Past illness Narrative* Problem Noted Date Resolved Date Altered tissue perfusion 16/2 022 documented as of this encounter (statuses as of 12/08/2021) [address]16-2022 History of Past illness Narrative* Problem Noted Date Resolved Date Altered tissue perfusion 16/2 022 documented as of this encounter (statuses as of 12/08/2021) [address]16-2022 History of Past illness Narrative* Problem Noted Date Resolved Date Altered tissue perfusion 16/2 022 documented as of this encounter (statuses as of 12/12/2021) [address]16-2022 History of Past illness Narrative* Problem Noted Date Resolved Date Altered tissue perfusion 16/2 022 documented as of this encounter (statuses as of 12/15/2021) [address]16-2022 History of Past illness Narrative* Problem Noted Date Resolved Date Altered tissue perfusion 16/2 022 documented as of this encounter (statuses as of 12/16/2021) [address]16-2022 History of Past illness Narrative* Problem Noted Date Resolved Date Altered tissue perfusion 16/2 022 documented as of this encounter (statuses as of 12/31/2021) [address]16-2022 History of Past illness Narrative* Problem Noted Date Resolved Date Altered tissue perfusion 16/2 022 documented as of this encounter (statuses as of 01/13/2022) [address]16-2022 History of Past illness Narrative* Problem Noted Date Resolved Date Altered tissue perfusion 16/2 022 documented as of this encounter (statuses as of 01/20/2022) [address]16-2022 History of Past illness Narrative* Problem Noted Date Resolved Date Altered tissue perfusion 16/2 022 documented as of this encounter (statuses as of 02/06/2022) [address]16-2022 History of Past illness Narrative* Problem Noted Date Resolved Date Altered tissue perfusion 16/2 022 documented as of this encounter (statuses as of 02/20/2022) [address]16-2022 History of Past illness Narrative* Problem Noted Date Resolved Date Altered tissue perfusion 16/2 022 documented as of this encounter (statuses as of 02/26/2022) [address]16-2022 History of Past illness Narrative* Problem Noted Date Resolved Date Altered tissue perfusion 16/2 022 documented as of this encounter (statuses as of 02/27/2022) [address]16-2022 History of Past illness Narrative* Problem Noted Date Resolved Date Altered tissue perfusion 16/2 022 documented as of this encounter (statuses as of 03/21/2022) [address]16-2022 History of Past illness Narrative* Problem Noted Date Resolved Date Altered tissue perfusion 16/2 022 documented as of this encounter (statuses as of 03/30/2022) [address]16-2022 History of Past illness Narrative* Problem Noted Date Resolved Date Altered tissue perfusion 16/2 022 documented as of this encounter (statuses as of 04/06/2022) [place] [address] History of Past illness Narrative* Problem Noted Date Resolved Date Altered tissue perfusion 16/2 022 documented as of this encounter (statuses as of 05/13/2022) [facility]08[facility] History of Past illness Narrative* Problem Noted Date Diagnosed Date Resolved Date Altered tissue perfusion documented as of this encounter (statuses as of 2022) [facility] History of Past illness Narrative* Problem Noted Date Diagnosed Date Resolved Date Altered tissue perfusion documented as of this encounter (statuses as of 10/29/2022) [facility]08-16-[facility] Miscellaneous Notes* Telephone Encounter - [...] Katina Duque documented in this encounterUniversity Hospitals Elyria Medical Center05-31-2022 Miscellaneous Notes* Telephone Encounter - [...] Rosibel Daniel documented in this encounterUniversity Hospitals Elyria Medical Center04-21-2022 Miscellaneous Notes* Telephone Encounter - [...] of proximal end of right lower extremity ([facility])- Primary PAD (peripheral artery disease) ([facility]) Peripheral vascular disease, unspecified Nonhealing ulcer of heel ([facility]) Anticoagulation management encounter Encounter for therapeutic drug monitoring documented in this encounter [facility] note* Diagnosis Encounter for prophylactic measures, unspecified- Primary documented in this encounter [facility] note* Diagnosis Kidney replaced by transplant- Primary documented in this encounter [facility] note* Diagnosis MRSA bacteremia- Primary Bacteremia Diabetic foot ulcer with osteomyelitis ([facility]) Type II or unspecified type diabetes mellitus with other specified manifestations, not stated as uncontrolled ILIANA (acute kidney injury) ([facility]) Acute kidney failure, unspecified documented in this encounter [facility] note* Diagnosis Kidney replaced by transplant- Primary 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 intermediate current use of immunosuppressive drug documented in this encounter [facility] note* Diagnosis Hx of BKA, right ([facility])- Primary PAD (peripheral artery disease) ([facility]) Peripheral vascular disease, unspecified Mixed hyperlipidemia due to type 2 diabetes mellitus ([facility]) Type II or unspecified type diabetes mellitus [...] of sacral region, unstageable chronic Candidiasis resolved [facility] Work Phone: Evaluation noteNo InformationNoHoly [facility] e-contratos Other Evaluation note* Diagnosis Kidney replaced by transplant- Primary documented in this encounter [facility] general Narrative - Reported* Type Description Date [...] COLONOSCOPY 1995,2001, 2014 Hospitalization History see above [employer] Other Progress note Author Sadia Aguilar July 20, 2022 1:48pm Note Date/Time July 20, 2022 1:48p m [facility] EN[facility] [address] [place] [address] Wound Center Provider Note Signed Patient: Alex Almonte MR#: [id number] : 1945 Acct:[id number] Age/Sex: 76 / M Copies to: DO Sadia Whyte APRN~ HPI Date of Visit Date of Visit: Date of Service: 07/20/2022 Time of Service: 13:46 Narrative HPI: 12/30/21 Alex is a 76 year old [facility] for an[facility] visit for eval and treatment of a sacral/coccyx area pressure ulcer. He resides at [facility]. There is an PILLAR WORKER present for the visit. Medicalhoney gel will [...] his brief that was cleaned by this gag writer as well as another nursing staff [...] from initial visit here Mode of Arrival/ Test Case Developer: Facility vehicle Assistive Device Used Today: Wheelchair and Indra Lives with:: Care/Nursing Facility Appetite Description: Within Normal Limits Who helps w/ dressing change?: Nursing Facility Why Do You Need Help?: Can't Reach Ulcer, Limited mobility and Taxing effort to leave home Smoking Status: Former smoker [facility] Medical History (Updated 03/03/22 @ 14:41 by [...] <Electronically signed by DAVID Aguilar> 07/20/22 [address] [facility] Work Phone: Reason for referral (narrative)* Outpatient Procedure (Routine) - Authorized Specialty Diagnoses / Procedures Referred By Contac t Referred To Contact [facility] [place] Diagnoses PAD (peripheral artery disease) (HCC) Nonhealing ulcer of heel (HCC) Procedures US LEG ARTERIAL PERIPH UNL VAS LAB DUP-SCAN LXTR ART/ARTL BPGS UNI/LMTD STUDY No Reeder DO [address] [place] [address] [facility] [place] [address] Referral ID Status Reason Start Date Expiration Date Visits Requested Visits Authorized [id number] Authorized Auto-Generat ed Referral 11/17/2021 11/17/2022 1 1 * Outpatient Procedure (Routine) - Authorized Specialty Diagnoses / Procedures Referred By Contac t Referred To Contact [facility] Diagnoses Acute deep vein thrombosis (DVT) of proximal end of right lower extremity (HCC) Procedures US LEG VEIN DVT UNL VAS LAB DUP-SCAN XTR VEINS UNILATERAL/LIMITED STUDY No Reeder DO [address] [place] [address] [place] [address] Referral ID Status Reason Start Date Expiration Date Visits Requested Visits Authorized [id number] Authorized Auto-Generat ed Referral 11/17/2021 11/17/2022 1 1 * Consult, Test, Treat (Routine) - Authorized Specialty Diagnoses / Procedures Referred By Contac t Referred To Contact Cardiology Diagnoses PAD (peripheral artery disease) (HCC) Nonhealing ulcer of heel (HCC) Procedures CONSULT TO CARDIOLOGY OFFICE/OUTPATIENT [facility] 60-74 MINUTES Savanah Marcelo MD [address] [place] [address] Referral ID Status Reason Start Date Expiration Date Visits Requested Visits Authorized [id number] Authorized PCP Requested Referral 11/17/2021 11/17/2022 1 1 [facility] Summary Purpose Family History Relationship Condition Age at Onset Recorded Date/T kartik father Aneurysm Unknown father Parkinson's disease Unknown Advance Directives Documents on File Type Date Recorded Patient Minister Helper Expl anation Advance Directive(s) Latest Code Status [...] Maker Relationship: M ajority of Adult Siblings (outbound sales representative) DNR-CCA 09/26/2021 11:56 AM 10/01/2021 [...] Decision Maker Relationship: Majority of Adult Siblings (outbound sales representative) Code Status History Code Status [...] Reason for Visit Chief Complaint Open Wound ([facility]) Reason for Visit At high risk for ski n breakdown Diabetes Fecal incontinence Limited mobility Poor appetite Pressure ulcer of sacral region, unstageable Candidiasis Additional Source Comments (unrecognized sect ion and content) No Status Records FoundNo Status Records FoundNo Status Records FoundNo Status Records FoundNo Status Records Found INFORMATION SOURCE (unrecogn ized section and content) DATE CREATED AUTHOR 02/20/2021 [email or web address] DATE CREATED AUTHOR AUTHOR'S ORGANIZ ATION 07/25/2022 [facility] DATE CREATED AUTHOR AUTHOR'S ORGANIZ ATION 08/16/2022 [facility] DATE CREATED AUTHOR AUTHOR'S ORGANIZ ATION 09/17/2022 [facility] DATE CREATED AUTHOR AUTHOR'S ORGANIZ ATION 01/14/2023 [facility] Source Comments (unrecognize d section and content) In the event this informatio n is protected by the Federal Confidentiality of Alcohol and Drug Abuse Patient Records regulations: The Federal rules restrict any use of the information to criminally investigate or prosecute any alcohol or drug abuse patient.[facility] CenterIn the event this information is protected by the Federal Confidentiality of Alcohol and Drug Abuse Patient Records regulations: The Federal rules restrict any use of the information to criminally investigate or prosecute any alcohol or drug abuse patient.[facility] CenterIn the event this information is protected by the Federal Confidentiality of Alcohol and Drug Abuse Patient Records regulations: The Federal rules restrict any use of the information to criminally investigate or prosecute any alcohol or drug abuse patient.[facility] CenterIn the event this information is protected by the Federal Confidentiality of Alcohol and Drug Abuse Patient Records regulations: The Federal rules restrict any use of the information to criminally investigate or prosecute any alcohol or drug abuse patient.[facility] CenterIn the event this information is protected by the Federal Confidentiality of Alcohol and Drug Abuse Patient Records regulations: The Federal rules restrict any use of the information to criminally investigate or prosecute any alcohol or drug abuse patient.[facility] CenterIn the event this information is protected by the Federal Confidentiality of Alcohol and Drug Abuse Patient Records regulations: The Federal rules restrict any use of the information to criminally investigate or prosecute any alcohol or drug abuse patient.[facility] CenterIn the event this information is protected by the Federal Confidentiality of Alcohol and Drug Abuse Patient Records regulations: The Federal rules restrict any use of the information to criminally investigate or prosecute any alcohol or drug abuse patient.[facility] CenterIn the event this information is protected by the Federal Confidentiality of Alcohol and Drug Abuse Patient Records regulations: The Federal rules restrict any use of the information to criminally investigate or prosecute any alcohol or drug abuse patient.[facility] CenterIn the event this information is protected by the Federal Confidentiality of Alcohol and Drug Abuse Patient Records regulations: The Federal rules restrict any use of the information to criminally investigate or prosecute any alcohol or drug abuse patient.[facility] CenterIn the event this information is protected by the Federal Confidentiality of Alcohol and Drug Abuse Patient Records regulations: The Federal rules restrict any use of the information to criminally investigate or prosecute any alcohol or drug abuse patient.[facility] CenterIn the event this information is protected by the Federal Confidentiality of Alcohol and Drug Abuse Patient Records regulations: The Federal rules restrict any use of the information to criminally investigate or prosecute any alcohol or drug abuse patient.[facility] CenterIn the event this information is protected by the Federal Confidentiality of Alcohol and Drug Abuse Patient Records regulations: The Federal rules restrict any use of the information to criminally investigate or prosecute any alcohol or drug abuse patient.[facility] CenterIn the event this information is protected by the Federal Confidentiality of Alcohol and Drug Abuse Patient Records regulations: The Federal rules restrict any use of the information to criminally investigate or prosecute any alcohol or drug abuse patient.[facility] CenterIn the event this information is protected by the Federal Confidentiality of Alcohol and Drug Abuse Patient Records regulations: The Federal rules restrict any use of the information to criminally investigate or prosecute any alcohol or drug abuse patient.[facility] CenterIn the event this information is protected by the Federal Confidentiality of Alcohol and Drug Abuse Patient Records regulations: The Federal rules restrict any use of the information to criminally investigate or prosecute any alcohol or drug abuse patient.[facility] CenterIn the event this information is protected by the Federal Confidentiality of Alcohol and Drug Abuse Patient Records regulations: The Federal rules restrict any use of the information to criminally investigate or prosecute any alcohol or drug abuse patient.[facility] CenterIn the event this information is protected by the Federal Confidentiality of Alcohol and Drug Abuse Patient Records regulations: The Federal rules restrict any use of the information to criminally investigate or prosecute any alcohol or drug abuse patient.[facility] CenterIn the event this information is protected by the Federal Confidentiality of Alcohol and Drug Abuse Patient Records regulations: The Federal rules restrict any use of the information to criminally investigate or prosecute any alcohol or drug abuse patient.[facility] CenterIn the event this information is protected by the Federal Confidentiality of Alcohol and Drug Abuse Patient Records regulations: The Federal rules restrict any use of the information to criminally investigate or prosecute any alcohol or drug abuse patient.[facility] CenterIn the event this information is protected by the Federal Confidentiality of Alcohol and Drug Abuse Patient Records regulations: The Federal rules restrict any use of the information to criminally investigate or prosecute any alcohol or drug abuse patient.[facility] CenterIn the event this information is protected by the Federal Confidentiality of Alcohol and Drug Abuse Patient Records regulations: The Federal rules restrict any use of the information to criminally investigate or prosecute any alcohol or drug abuse patient.[facility] CenterIn the event this information is protected by the Federal Confidentiality of Alcohol and Drug Abuse Patient Records regulations: The Federal rules restrict any use of the information to criminally investigate or prosecute any alcohol or drug abuse patient.[facility] CenterIn the event this information is protected by the Federal Confidentiality of Alcohol and Drug Abuse Patient Records regulations: The Federal rules restrict any use of the information to criminally investigate or prosecute any alcohol or drug abuse patient.[facility] CenterIn the event this information is protected by the Federal Confidentiality of Alcohol and Drug Abuse Patient Records regulations: The Federal rules restrict any use of the information to criminally investigate or prosecute any alcohol or drug abuse patient.[facility] CenterIn the event this information is protected by the Federal Confidentiality of Alcohol and Drug Abuse Patient Records regulations: The Federal rules restrict any use of the information to criminally investigate or prosecute any alcohol or drug abuse patient.[facility] CenterIn the event this information is protected by the Federal Confidentiality of Alcohol and Drug Abuse Patient Records regulations: The Federal rules restrict any use of the information to criminally investigate or prosecute any alcohol or drug abuse patient.[facility] Reason for Visit (unrecogniz ed [...] Care Teams (unrecognized sec tion and content) Software Publisher Relationship Specialty Start Date End Date Devon Moreira, DO [address] [place] [address] PCP - General 05/27/00 Software Publisher Relationship Specialty Start Date End Date Devon Moreira, DO [address] [place] [address] PCP - General 05/27/00 Software Publisher Relationship Specialty Start Date End Date Devon Moreira, DO [address] [place] [address] PCP - General 05/27/00 Software Publisher Relationship Specialty Start Date End Date Devon Moreira, DO [address] [place] [address] PCP - General 05/27/00 Software Publisher Relationship Specialty Start Date End Date Devon Moreira, DO [address] [place] [address] PCP - General 05/27/00 Software Publisher Relationship Specialty Start Date End Date Devon Moreira, DO [address] [place] [address] PCP - General 05/27/00 Software Publisher Relationship Specialty Start Date End Date Devon Moreira, DO [address] [place] [address] PCP - General 05/27/00 Software Publisher Relationship Specialty Start Date End Date Devon Moreira, DO [address] [place] [address] PCP - General 05/27/00 Software Publisher Relationship Specialty Start Date End Date Devon Moreira, DO [address] [place] [address] PCP - General 05/27/00 Software Publisher Relationship Specialty Start Date End Date Devon Moreira, DO [address] [place] [address] PCP - General 05/27/00 Software Publisher Relationship Specialty Start Date End Date Devon Moreira, DO [address] [place] [address] PCP - General 05/27/00 Software Publisher Relationship Specialty Start Date End Date Devon Moreira, DO [address] [place] [address] PCP - General 05/27/00 Software Publisher Relationship Specialty Start Date End Date Devon Moreira, DO [address] [place] [address] PCP - General 05/27/00 Software Publisher Relationship Specialty Start Date End Date Devon Moreira, DO [address] [place] [address] PCP - General 05/27/00 Software Publisher Relationship Specialty Start Date End Date Devon Moreira, DO [address] [place] [address] PCP - General 05/27/00 Software Publisher Relationship Specialty Start Date End Date Devon Moreira, DO [address] [place] [address] PCP - General 05/27/00 Software Publisher Relationship Specialty Start Date End Date Devon Moreira, DO [address] [place] [address] PCP - General 05/27/00 Software Publisher Relationship Specialty Start Date End Date Devon Moreira, DO [address] [place] [address] PCP - General 05/27/00 Software Publisher Relationship Specialty Start Date End Date Devon Moreira DO [address] [place] [address] PCP - General 05/27/00 Team Status: Active Member Role Status Dates Devon Lillie Primary Care Provider Active Team Status: Inactive Member Role Status Dates Devon Moreira Primary Care Provider Active Sadia Aguilar APRN Attending Provider Active Software Publisher Relationship Specialty Start Date End Date Devon Moreira DO [address] [place] [address] PCP - General 05/27/00 Software Publisher Relationship Specialty Start Date End Date Devon Moreira DO [address] [place] [address] PCP - General 05/27/00 PRN Active and Recently Administ ered Medications (unrecognized section and content) Medication Order 01/10/2022 01/11/2022 01/12/2022 lidocaine (PF) 10 mg/mL (1 %) injection (XYLOCAINE) SUBCUTANEOUS, X (OR/PROCEDURE) PRN, Starting on Wed01/12/22 at 1032, Until Wed01/13/22 at 0303, Intraprocedure 1032 (Given - Provid er: Vani Hdz APRN.OFFICE CLEANER) Goals (unrecognized section and content) Goals may [...] BE BASED ON THE PRIMARY CLINICAL RECORDS. [employer] provides no warranty or guarantee of the accuracy or completeness of information in this document.
[2023-03-03 07:43] LABS: Basophils Percent Auto 0.6 % (0.2-2.0); Eosinophils Absolute Auto 0.1 10^3/uL (0.0-0.7); Eosinophils Percent Auto 2.3 % (0.9-7.0); Hematocrit 32.5 % (42.0-54.0); Hemoglobin 10.5 g/dL (14.0-18.0); Immature Granulocytes Abs Auto 0.02 10^3/uL (0.00-0.03); Immature Granulocytes Pct Auto 0.3 % (0.0-0.5); Lymphocytes Absolute Auto 2.2 10^3/uL (1.2-3.8); Lymphocytes Percent Auto 35.5 % (20.5-60.0); Mean Corpuscular HGB Conc 32.3 g/dL (29.9-35.2); Mean Corpuscular Hemoglobin 28.7 pg (25.9-34.0); Mean Corpuscular Volume 88.8 fL (80.0-94.0); Mean Platelet Volume 10.4 fL (9.5-13.5); Monocytes Absolute Auto 0.7 10^3/uL (0.3-0.8); Monocytes Percent Auto 11.2 % (1.7-12.0); Neutrophils Absolute Auto 3.1 10^3/uL (1.4-6.5); Neutrophils Percent Auto 50.1 % (43.0-75.0); Platelet Count 231 10^3/uL (150-450); Red Blood Count 3.66 10^6/uL (4.70-6.10); Red Cell Distribution Width 14.9 % (11.0-15.0); White Blood Count 6.2 10^3/uL (4.0-11.0)
[2023-03-03 07:59] LABS: Alanine Aminotransferase 17 U/L (16-63); Albumin Globulin Ratio 0.8; Albumin Level 2.5 g/dL (3.4-5.0); Alkaline Phosphatase 65 U/L (46-116); Anion Gap 11.6; Aspartate Amino Transferase 19 U/L (15-37); BUN Creatinine Ratio 27.6; Bilirubin Total 0.7 mg/dL (0.2-1.0); Calcium 8.1 mg/dL (8.5-10.1); Carbon Dioxide 29.6 mmol/L (21.0-32.0); Chloride 103 mmol/L (98-107); Estimated GFR (African America 52 (>=60); Estimated GFR (Non-African Ame 43 (>=60); Globulin 3.3 g/dL; Glucose 188 mg/dL (74-106); INR 2.19; Potassium 4.2 mmol/L (3.5-5.1); Prothrombin Time 22.2 sec (9.0-11.6); Sodium 140 mmol/L (136-145); Total Protein 5.8 g/dL (6.4-8.2)
[2023-03-05 12:09] LABS: Tacrolimus (FK506), Blood 5.9 ng/mL (2.0-20.0)
== END 2023-03-03 01:07 | disposition home or self-care (01) ==
LOC: LAB 01:06
PROVIDERS: PCP Internal Medicine; Visit Provider Internal Medicine
DX: Z51.81 Encounter for therapeutic drug level monitoring (principal); N18.9 Chronic kidney disease, unspecified; Z94.0 Kidney transplant status
CPT/HCPCS: 36415; 80053; 80197; 85025; 85610

== ENCOUNTER 2023-03-10 01:23 | Outpatient (REF) | payer MEDICARE, OTHER, SELFPAY ==
--- OUTSIDE RECORDS SUMMARY | 2023-03-10 01:28 | XMS_ITS | CCD ---
Author Name Unknown Address [address] [place] [address] Organization [facility] Care Team Providers Care Environmental Engineering Assistant Name Role Phone PROVIDER, UNKNOWN Attending Unavailable [...] Primary Care Provider DAVID Aguilar Attending Provider [phone] Sadia Aguilar Attending Unavailable Sadia Aguilar Admitting [...] [PYRIDOSTIGMINE BROMIDE] Drug Allergy 2 GI Upset [facility] Work Phone: (1 source) ALLERGIES NOT ON FILE; Translations: [ALLERGIES NOT ON FILE] Propensity to adverse reactions (disorder) [facility] Repository Medications Current Medications Medication Drug [...] 0 Active take 2 tablets by mo [facility] every six hours as needed for pain [...] MEALS January 23, 2019 1:00am K Phos Conway-Sod Phos Di & Conway [phone] MG (5 sources) take 155-852 tablets by mouth twice daily K Phos Conway-Sod Phos Di & [place] [phone] MG 1 tablet Orally twice daily Active take 155-852 tablets by mouth four times daily take 155-852 tablets by mouth four times daily K Phos Conway-Sod Phos Di & Conway [phone] MG 1 tablet Orally Four times [...] by mouth daily with lunch. [employer] [place] with lunch 7110 mL 0 12/11/2021 Active Comment on above: Take 237 mL by mouth daily with lunch. [place] with lunch polyethylene glycol 3350 11748 mg powder for oral solution (20 sources) [...] Coronary arteriosclerosis; Translations: [Atherosclerotic heart disease of unga coronary artery without angina pectoris] Onset: 7 [...] current use of immunosuppressive drug; Translations: [Other mcc (current) drug therapy] Episodic Other aftercare (12 sources) Long-term current use of insulin; Translations: [[facility] (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 of insulin] Episodic Other aftercare (10 sources) [facility] (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 of insulin; Translations: [MANAGER BATTERY CURRENT USE OF INSULIN] Onset: 2 Episodic Other aftercare (5 sources) [facility] (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 of anticoagulants; Translations: [RESIDENTIAL CURRNT USE ANTICOAGULANTS] Onset: 3 Episodic Other [...] 07-30-2006 Episodic Other aftercare (2 sources) Other mcc (current) drug therapy; Translations: [OTH MANAGER BATTERY CURRENT DRUG THERAPY] Onset: 02-05-2022 Episodic Other aftercare (4 sources) Encounter for orthopedic aftercare following surgical amputation; Translations: [ENC ORTHOPED AFTERCARE FLW SURG AMP] Onset: 02-05-2022 Episodic Other aftercare (4 sources) 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; Translations: [RESIDENTIAL CURRENT USE ANTIBIOTICS] Onset: 12-20-2021 Episodic Other aftercare (1 source) [facility] (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 of aspirin; Translations: [RESIDENTIAL CURRENT USE OF ASPIRIN] Onset: 01-19-2022 Episodic [...] Test Name Value Interpretation Reference Range Facility [facility]) [facility] ([id number]) 1945 M Date Time Provider Department 12/25/22 KIDNEY TXP COORDINATORS TXCTGL During your visit today, we recorded the following information about you: Duane Ryan 12/25/2022 10:41 AM Signed Labs 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 [employer] [place] with lunch aspirin, enteric coated (ASPIRIN, ENTERIC [...] in am? thanks! RF Pts RN at reports pts sister picks up Rx from [...] Apply 0. (more content not included)... Normal [facility] Office Visiton 09-09-2022 Follow-up visit [id number] Alex Almonte 1945 M Date Provider Department Center 09/09/2022 1596-SARTHAK PARNELL [facility] Family History Problem Relation Age of Onset Cancer Mother Aneurysm Father Cancer Father Parkinsonism Father Family Status - Relation Status Age at Mother Father Level of Service:05313 CO OFFICE/OUTPATIENT ESTABLISHED MOD MDM 30-39 MIN Normal [facility] Glucose Poct Glucometerson 0 07-20-2022 Commemt1 Glu2: Cleaned Meter Normal [facility] Comment on above: Result Comment: PERF ORMED BY: [facility] [address] [place] [address] PATHOLOGIST TURNING SANDER TENDER JOSE F ELLIOTT M.D. Performed By: #### G LULS #### Point of Care testing , Glucose [Mass/Vol] 176 mg/dL Normal [facility] Comment on above: Result Comment: [facility] Glucose Reference Range is dependent on time and content of last meal. Glucose of more than 200 mg/dL in a nonstressed, ambulatory subject supports the diagnosis of Diabetes Mellitus. Performed By: #### G LULS #### Point of Care testing , FK506 (TACROLIMUS) WHOLE BLO ODon 07-12-2022 Tacrolimus (FK506), Blood 10.9 ng/mL Normal 2.0-20.0 [facility] Comment on above: Result Comment: Trou gh (immediately following transplant) 15.0 . Trough (steady state, 2 weeks or more after transplant): 3.0 - 8.0 . Performed by LC-MS/MS technology. Performed By: #### F K506T ####[facility] Raoxovwb[address] [place], [place] [address]Dr. Farhat Leal CBC AUTO DIFFon 07-10-2022 BASO # 0.0 103/ul Normal 0.0-0.1 [facility] Comment on above: Performed By: #### C BC ####[facility] Ed[address] [place], [place] [address]Dr. Farhat Leal Basophils/100 WBC (Bld) 0.5 % Normal 0.2-2.0 [facility] Comment on above: Performed By: #### C BC ####[facility] Zaz[address]oc[address] [place], [place] [address]Dr. Farhat Leal EO # 0.3 103/ul Normal 0.0-0.7 [facility] Comment on above: Performed By: #### C BC ####[facility] Svttmsqmpj[address] [place], [place] [address]Dr. Farhat Leal Eosinophils/100 WBC (Bld) 4.9 % Normal 0.9-7.0 [facility] Comment on above: Performed By: #### C BC ####[facility] Acs[address] [place], [place] [address]Dr. Farhat Leal Erythrocyte distribution width (RBC) [Ratio] 13.8 % Normal 11.0-15.0 [facility] Comment on above: Performed By: #### C BC ####[facility] Zkzc[address] [place], [place] [address]Dr. Farhat Leal Hematocrit (Bld) [Volume fraction] 36.6 % Critically low 42.0-54.0 [facility] Comment on above: Performed By: #### C BC ####[facility] [address] [place], [place] [address]Dr. Farhat Leal Hemoglobin (Bld) [Mass/Vol] 12.2 g/dL Critically low 14.0-18.0 [facility] Comment on above: Performed By: #### C BC ####[facility] [address] [place] [id number]. Madelynlorri Elvis IG # 0.01 10e3/ul Normal 0.00-0.03 [facility] Comment on above: Performed By: #### C BC ####[facility] Ax[address]dfuraa7[address] [place] [id number]. Farhat Leal IG % 0.2 % Normal 0.0-0.5 [facility] Comment on above: Performed By: #### C BC ####[facility] [address] [place] [address]Dr. Farhat Leal LYMPH # 2.2 103/ul Normal 1.2-3.8 [facility] Comment on above: Performed By: #### C BC ####[facility] [address]fr[address] [place] [address]Dr. Farhat Leal Lymphocytes/100 WBC (Bld) 33.9 % Normal 20.5-60.0 [facility] Comment on above: Performed By: #### C BC ####[facility] Dxir[address]mgt[address] [place] [id number]. Farhat Lael MANUAL DIFF REQ NO Normal [facility] Comment on above: Performed By: #### C BC ####[facility] Zffxdirbru[address] [place] [id number]. Farhat Leal MCH (RBC) [Entitic mass] 31.0 pg Normal 25.9-34.0 [facility] Comment on above: Performed By: #### C BC ####[facility] Nblft[address]vvs34[address] [place] [id number]. Farhat Leal MCHC (RBC) [Mass/Vol] 33.3 g/dL Normal 29.9-35.2 [facility] Comment on above: Performed By: #### C BC ####[facility] Kxpfzyurhf6[address] [place] [id number]. Farhat Leal MCV (RBC) [Entitic vol] 93.1 fL Normal 80.0-94.0 [facility] Comment on above: Performed By: #### C BC ####[facility] Ddoyptsezg0736 [place] [id number]. Farhat Leal MONO # 0.7 103/ul Normal 0.3-0.8 [facility] Comment on above: Performed By: #### C BC ####[facility] [address]cmzp55[address] [place] [id number]. Farhat Leal Monocytes/100 WBC (Bld) 10.8 % Normal 1.7-12.0 [facility] Comment on above: Performed By: #### C BC ####[facility] Blszujetba1777 [place] [id number]. Farhat Leal NEUT # 3.2 103/ul Normal 1.4-6.5 [facility] Comment on above: Performed By: #### C BC ####[facility] R[address]clhbxup[address] [place] [address]Dr. Farhat Leal Neutrophils/100 WBC (Bld) 49.7 % Normal 43.0-75.0 [facility] Comment on above: Performed By: #### C BC ####[facility] Idfbwseqqz7180 [place] [phone]. Farhat Leal Platelet mean volume (Bld) [Entitic vol] 10.9 fL Normal 9.5-13.5 [facility] Comment on above: Performed By: #### C BC ####[facility] [address]emu[address] [place] [id number]. Farhat Leal PLT 195 103/ul Normal 150-450 [facility] Comment on above: Performed By: #### C BC ####[facility] Mdijutveni33[address] [place] [id number]. Farhat Leal RBC 3.93 106/ul Critically low 4.70-6.10 [facility] Comment on above: Performed By: #### C BC ####[facility] Fbshdvmgvb5411 [place] [phone]. Farhat Leal WBC 6.4 103/ul Normal 4.0-11.0 [facility] Comment on above: Performed By: #### C BC ####[facility] E[address]movq[address] [place] [address]Dr. Farhat Leal MAGNESIUMon 07-10-2022 Magnesium [Mass/Vol] 1.9 mg/dL Normal 1.8-2.4 [facility] Comment on above: Performed By: #### M Anais PHOS ####[facility] Ltygmf[address]ud[address] [place] [address]Dr. Farhat Leal PHOSPHORUSon 07-10-2022 Phosphate [Mass/Vol] 4.7 mg/dL Normal 2.6-4.7 [facility] Comment on above: Performed By: #### M ANA ManzoS ####[facility] Julmmhhukt[address] [place] [address]Dr. Farhat Leal PROF 14(COMP METB)on 023 Albumin [Mass/Vol] 2.7 g/dL Critically low 3.4-5.0 [facility] Comment on above: Performed By: #### C MP ####[facility] Tjmireeake[address] [place], [place] [address]Dr. Farhat Leal Albumin/Globulin [Mass ratio] 0.8 {ratio} Normal [facility] Comment on above: Performed By: #### C MP ####[facility] Ekrqdfgzqv[address] [place], [place] [address]Dr. Farhat Leal ALP [Catalytic activity/Vol] 59 U/L Normal 46-116 [facility] Comment on above: Performed By: #### C MP ####[facility] Oyocspsufd[address] [place], [place] [address]Dr. Farhat Leal ALT [Catalytic activity/Vol] 16 U/L Normal 16-63 [facility] Comment on above: Performed By: #### C MP ####[facility] S[address]lsxmzz[address] [place], [place] [address]Dr. Farhat Leal Anion gap [Moles/Vol] 12.3 mmol/L Normal [facility] Comment on above: Performed By: #### C MP ####[facility] H[address]nsrk[address] [place], [place] [address]Dr. Farhat Leal AST [Catalytic activity/Vol] 17 U/L Normal 15-37 [facility] Comment on above: Performed By: #### C MP ####[facility] Idtwzjynhd6378 [place] [address]Dr. Farhat Elvis Bilirubin [Mass/Vol] 0.5 mg/dL Normal 0.2-1.0 [facility] Comment on above: Performed By: #### C MP ####[facility] Oxjqzatgou[address] [place], [place] [address]Dr. Farhat Elvis Calcium [Mass/Vol] 8.5 mg/dL Normal 8.5-10.1 [facility] Comment on above: Performed By: #### C MP ####[facility] Znktebdeyx65[address] [place], [place] [address]Dr. Farhat Elvis Chloride [Moles/Vol] 104 mmol/L Normal 98-107 [facility] Comment on above: Performed By: #### C MP ####[facility] Veqlsrcjtb[address] [place], [place] [address]Dr. Farhat Elvis CO2 [Moles/Vol] 27.6 mmol/L Normal 21.0-32.0 [facility] Comment on above: Performed By: #### C MP ####[facility] Xufhrihmpa[address] [place], [place] [address]Dr. Farhat Elvis Creatinine [Mass/Vol] 1.79 mg/dL Critically high 0.70-1.30 [facility] Comment on above: Performed By: #### C MP ####[facility] Rktpjmbmwf[address] [place], [place] [address]Dr. Farhat Elvis EGFR-AF [place] 45 mL/min/1.73m2 Critically low >=60 [facility] Comment on above: Performed By: #### C MP ####[facility] W[address]afllbsvy[address] [place], [place] [address]Dr. Farhat Leal EGFR-NON AF [place] 37 mL/min/1.73m2 Critically low >=60 [facility] Comment on above: Performed By: #### C MP ####[facility] Vyulflcrm[address] [place], [place] [address]Dr. Farhat Leal Globulin (S) [Mass/Vol] 3.2 g/dL Normal [facility] Comment on above: Performed By: #### C MP ####[facility] Locpcqlizy3586 [place] [address]Dr. Farhat Leal Glucose [Mass/Vol] 203 mg/dL Critically high 74-106 T [facility] Comment on above: Performed By: #### C MP ####[facility] Jovsatpilu[address]48 [place] [address]Dr. Farhat Leal Potassium [Moles/Vol] 3.9 mmol/L Normal 3.5-5.1 [facility] Comment on above: Performed By: #### C MP ####[facility] Eszqvwuwcl[address] [place], [place] [address]Dr. Farhat Leal Protein [Mass/Vol] 5.9 g/dL Critically low 6.4-8.2 [facility] Comment on above: Performed By: #### C MP ####[facility] F[address]azwewjbh[address] [place], [place] [address]Dr. Farhat Leal Sodium [Moles/Vol] 140 mmol/L Normal 136-145 [facility] Comment on above: Performed By: #### C MP ####[facility] Nrxbnhonxt[address] [place], [place] [address]Dr. Farhat Leal Urea nitrogen [Mass/Vol] 61.0 mg/dL Critically high 7.0-18.0 [facility] Comment on above: Performed By: #### C MP ####[facility] Bnwixnsvbj[address] [place], [place] [address]Dr. Farhat Leal Urea nitrogen/Creatinine [Mass ratio] 34.1 mg/mg Normal [facility] Comment on above: Performed By: #### C MP ####[facility] Nfkpsfudqr[address] [place], [place] [address]Dr. Farhat Leal PROTIMEon 07-10-2022 INR Coag (PPP) [Relative time] 2.95 {INR} Normal [facility] Comment on above: Performed By: #### P T ####[facility] Danjdlndxb[address] [place], [place] [address]Dr. Farhat Leal INR GUIDELINES SEE BELOW Normal [facility] Comment on above: Result Comment: MALINA RED INR: 2.0 - 3.0 CONDITIONS NOT LISTED BELOW 2.5 - 3.5 FOR PROSTHETIC HEART VALVE REPLACEMENT 2.5 - 3.5 RECURRENT THROMBOSIS Performed By: #### P T ####[facility] Tlbozxnyvg[address] [place], [place] [address]Dr. Farhat Leal PT Coag (PPP) [Time] 29.4 s Critically high 9.0-11.6 [facility] Comment on above: Performed By: #### P T ####[facility] Rnnulxdcxv[address] [place], [place] [address]Dr. Farhat Leal FK506 (TACROLIMUS) WHOLE BLO ODon 07-07-2022 Tacrolimus (FK506), Blood 8.3 ng/mL Normal 2.0-20.0 [facility] Comment on above: Result Comment: Trou gh (immediately following transplant) 15.0 . Trough (steady state, 2 weeks or more after transplant): 3.0 - 8.0 . Performed by LC-MS/MS technology. Performed By: #### F K506T ####[facility] [address]wsj[address]wrn[address] [place], [place] [address]Dr. Farhat Leal CBC AUTO DIFFon 07-03-2022 BASO # 0.0 103/ul Normal 0.0-0.1 [facility] Comment on above: Performed By: #### C BC ####[facility] Vgofibsnww[address] [place], [place] [address]Dr. Farhat Leal Basophils/100 WBC (Bld) 0.6 % Normal 0.2-2.0 [facility] Comment on above: Performed By: #### C BC ####[facility] Inxkgmhmix[address] [place], [place] [address]Dr. Frahat Leal EO # 0.3 103/ul Normal 0.0-0.7 [facility] Comment on above: Performed By: #### C BC ####[facility] Wecchymaqd[address] [place], [place] [address]Dr. Farhat Leal Eosinophils/100 WBC (Bld) 4.1 % Normal 0.9-7.0 [facility] Comment on above: Performed By: #### C BC ####[facility] Crernekjdh[address] [place] [address]Dr. Farhat Leal Erythrocyte distribution width (RBC) [Ratio] 14.0 % Normal 11.0-15.0 [facility] Comment on above: Performed By: #### C BC ####[facility] [address]esadefvxr[address] [place], [place] [address]Dr. Farhat Leal Hematocrit (Bld) [Volume fraction] 35.9 % Critically low 42.0-54.0 [facility] Comment on above: Performed By: #### C BC ####[facility] Ppebmeseaa[address] [place], [place] [address]Dr. Farhat Leal Hemoglobin (Bld) [Mass/Vol] 12.0 g/dL Critically low 14.0-18.0 [facility] Comment on above: Performed By: #### C BC ####[facility] Ltcogubsbx[address] [place], [place] [address]Dr. Farhat Leal IG # 0.04 10e3/ul Critically high 0.00-0.03 [facility] Comment on above: Performed By: #### C BC ####[facility] Udsvzohmlh[address] [place], [place] [address]Dr. Farhat Leal IG % 0.6 % Critically high 0.0-0.5 [facility] Comment on above: Performed By: #### C BC ####[facility] Msokfdqvog[address] [place], [place] [address]Dr. Farhat Leal LYMPH # 1.5 103/ul Normal 1.2-3.8 [facility] Comment on above: Performed By: #### C BC ####[facility] Nkqj[address]eehv[address] [place], [place] [address]Dr. Farhat Leal Lymphocytes/100 WBC (Bld) 21.5 % Normal 20.5-60.0 [facility] Comment on above: Performed By: #### C BC ####[facility] [address]ovsp[address]ytfg[address] [place], [place] [address]Dr. Farhat Leal MANUAL DIFF REQ NO Normal [facility] Comment on above: Performed By: #### C BC ####[facility] Kfbxqbxouh25[address] [place] [id number]. Farhat Elvis MCH (RBC) [Entitic mass] 30.8 pg Normal 25.9-34.0 [facility] Comment on above: Performed By: #### C BC ####[facility] Cuobmruuxi[address] [place] [address]Dr. Farhat Elvis MCHC (RBC) [Mass/Vol] 33.4 g/dL Normal 29.9-35.2 [facility] Comment on above: Performed By: #### C BC ####[facility] [address]hfotgyiko[address] [place], [place] [address]Dr. Madelynlorri Leal MCV (RBC) [Entitic vol] 92.1 fL Normal 80.0-94.0 [facility] Comment on above: Performed By: #### C BC ####[facility] [address]vftrlihn[address] [place], [place] [address]Dr. Farhat Leal MONO # 0.6 103/ul Normal 0.3-0.8 [facility] Comment on above: Performed By: #### C BC ####[facility] Ffnrapgxwn[address] [place], [place] [address]Dr. Madelynlorri Leal Monocytes/100 WBC (Bld) 8.7 % Normal 1.7-12.0 [facility] Comment on above: Performed By: #### C BC ####[facility] [address]pygbalhto[address] [place], [place] [address]Dr. Farhat Leal NEUT # 4.4 103/ul Normal 1.4-6.5 [facility] Comment on above: Performed By: #### C BC ####[facility] Xjxrkmglqd[address] [place], [place] [address]DrSkylar Leal Neutrophils/100 WBC (Bld) 64.5 % Normal 43.0-75.0 [facility] Comment on above: Performed By: #### C BC ####[facility] [address]iledbbju[address] [place], [place] [address]Dr. Farhat Leal Platelet mean volume (Bld) [Entitic vol] 10.1 fL Normal 9.5-13.5 [facility] Comment on above: Performed By: #### C BC ####[facility] [address]hrhsdtyg[address] [place] [address]Dr. Madelynlorri Elvis PLT 177 103/ul Normal 150-450 [facility] Comment on above: Performed By: #### C BC ####[facility] Lryczmmxhj1222 [place] [id number]. Madelynlorri Elvis RBC 3.90 106/ul Critically low 4.70-6.10 [facility] Comment on above: Performed By: #### C BC ####[facility] Irhvgrpwxb99[address] [place] [phone]. Madelynlorri Elvis WBC 6.8 103/ul Normal 4.0-11.0 [facility] Comment on above: Performed By: #### C BC ####[facility] Hovoeburmc[address] [place] [address]Dr. Farhat Leal PROF 14(COMP METB)on 023 Albumin [Mass/Vol] 2.8 g/dL Critically low 3.4-5.0 [facility] Comment on above: Performed By: #### C MP ####[facility] Miraeybnvo[address] [place] [address]Dr. Farhat Leal Albumin/Globulin [Mass ratio] 0.8 {ratio} Normal [facility] Comment on above: Performed By: #### C MP ####[facility] Mheghcwqcz[address]2 [place] [address]Dr. Farhat Leal ALP [Catalytic activity/Vol] 68 U/L Normal 46-116 [facility] Comment on above: Performed By: #### C MP ####[facility] Ewxmkhelky[address] [place] [address]Dr. Farhat Leal ALT [Catalytic activity/Vol] 20 U/L Normal 16-63 [facility] Comment on above: Performed By: #### C MP ####[facility] Qfhsaovvtg8517 [place] [address]DrSkylar Leal Anion gap [Moles/Vol] 11.1 mmol/L Normal [facility] Comment on above: Performed By: #### C MP ####[facility] Yflujvpoay7313 [place] [phone]. Farhat Leal AST [Catalytic activity/Vol] 22 U/L Normal 15-37 [facility] Comment on above: Performed By: #### C MP ####[facility] Zcbvlxiqyx[address] [place] [id number]. Farhat Leal Bilirubin [Mass/Vol] 0.4 mg/dL Normal 0.2-1.0 [facility] Comment on above: Performed By: #### C MP ####[facility] Nrifjreybf364[address] [place] [address]Dr. Farhat Leal Calcium [Mass/Vol] 8.5 mg/dL Normal 8.5-10.1 [facility] Comment on above: Performed By: #### C MP ####[facility] Hawhtvqcxi[address] [place], [place] [address]Dr. Farhat Leal Chloride [Moles/Vol] 106 mmol/L Normal 98-107 [facility] Comment on above: Performed By: #### C MP ####[facility] [address]ywzzdqf[address] [place], [place] [address]Dr. Farhat Leal CO2 [Moles/Vol] 29.1 mmol/L Normal 21.0-32.0 [facility] Comment on above: Performed By: #### C MP ####[facility] Ezfhbwdtgg[address] [place], [place] [id number]. Farhat Leal Creatinine [Mass/Vol] 1.70 mg/dL Critically high 0.70-1.30 [facility] Comment on above: Performed By: #### C MP ####[facility] Zpkynfiqhi6623 [place] [id number]. Farhat Elvis EGFR-AF [place] 48 mL/min/1.73m2 Critically low >=60 [facility] Comment on above: Performed By: #### C MP ####[facility] Bikpypesaw3112 [place] [id number]. Farhat Leal EGFR-NON AF [place] 39 mL/min/1.73m2 Critically low >=60 [facility] Comment on above: Performed By: #### C MP ####[facility] Ifetlrwoff5349 [place] [address]Dr. Farhat Leal Globulin (S) [Mass/Vol] 3.6 g/dL Normal [facility] Comment on above: Performed By: #### C MP ####[facility] Nlogomevhj6630 [place] [address]Dr. Farhat Leal Glucose [Mass/Vol] 312 mg/dL Critically high 74-106 [facility] Comment on above: Performed By: #### C MP ####[facility] Tfrateluwv1276 [place] [address]Dr. Farhat Leal Potassium [Moles/Vol] 4.2 mmol/L Normal 3.5-5.1 [facility] Comment on above: Performed By: #### C MP ####[facility] Ibnaioarcc[address] [place], [place] [address]Dr. Farhat Leal Protein [Mass/Vol] 6.4 g/dL Normal 6.4-8.2 [facility] Comment on above: Performed By: #### C MP ####[facility] Ydxyvxpler[address] [place], [place] [address]Dr. Farhat Leal Sodium [Moles/Vol] 142 mmol/L Normal 136-145 [facility] Comment on above: Performed By: #### C MP ####[facility] Elnxdfejgb[address] [place], [place] [address]Dr. Farhat Leal Urea nitrogen [Mass/Vol] 49.0 mg/dL Critically high 7.0-18.0 [facility] Comment on above: Performed By: #### C MP ####[facility] Pnaqegghfw[address] [place], [place] [address]Dr. Farhat Leal Urea nitrogen/Creatinine [Mass ratio] 28.8 mg/mg Normal [facility] Comment on above: Performed By: #### C MP ####[facility] Smvvjwhtmq6408 [place] [address]Dr. Farhat Elvis PROTIMEon 07-03-2022 INR Coag (PPP) [Relative time] 2.23 {INR} Normal [facility] Comment on above: Performed By: #### P T ####[facility] Jjicmhoxvh3210 [place] [address]Dr. Farhat Leal INR GUIDELINES SEE BELOW Normal [facility] Comment on above: Result Comment: MALINA RED INR: 2.0 - 3.0 CONDITIONS NOT LISTED BELOW 2.5 - 3.5 FOR PROSTHETIC HEART VALVE REPLACEMENT 2.5 - 3.5 RECURRENT THROMBOSIS Performed By: #### P T ####[facility] Mqtwbuerxv[address] [place], [place] [address]Dr. Farhat Leal PT Coag (PPP) [Time] 22.6 s Critically high 9.0-11.6 [facility] Comment on above: Performed By: #### P T ####[facility] Qhmizcmbxq[address] [place], [place] [address]Dr. Farhat Leal FK506 (TACROLIMUS) WHOLE BLO ODon 06-29-2022 Tacrolimus (FK506), Blood 12.2 ng/mL Normal 2.0-20.0 [facility] Comment on above: Result Comment: Trou gh (immediately following transplant) 15.0 . Trough (steady state, 2 weeks or more after transplant): 3.0 - 8.0 . Performed by LC-MS/MS technology. Performed By: #### F K506T ####[facility] Rfnsqepfhe[address] [place], [place] [address]Dr. Farhat Leal CBC AUTO DIFFon 06-26-2022 BASO # 0.0 103/ul Normal 0.0-0.1 [facility] Comment on above: Performed By: #### C BC ####[facility] Robrvpchgu155[address] [place], [place] [address]Dr. Farhat Leal Basophils/100 WBC (Bld) 0.5 % Normal 0.2-2.0 [facility] Comment on above: Performed By: #### C BC ####[facility] Xhynfwnnek9209 [place] [address]Dr. Farhat Leal EO # 0.3 103/ul Normal 0.0-0.7 [facility] Comment on above: Performed By: #### C BC ####[facility] Dniaphoetp1396 [place] [phone]. Farhat Leal Eosinophils/100 WBC (Bld) 4.3 % Normal 0.9-7.0 [facility] Comment on above: Performed By: #### C BC ####[facility] Glznxshxiz8637 [place] [address]Dr. Farhat Leal Erythrocyte distribution width (RBC) [Ratio] 14.1 % Normal 11.0-15.0 [facility] Comment on above: Performed By: #### C BC ####[facility] Uywhgmiuha[address] [place], [place] [address]Dr. Farhat Leal Hematocrit (Bld) [Volume fraction] 35.4 % Critically low 42.0-54.0 [facility] Comment on above: Performed By: #### C BC ####[facility] Wkkazqifso[address] [place], [place] [address]Dr. Farhat Leal Hemoglobin (Bld) [Mass/Vol] 11.8 g/dL Critically low 14.0-18.0 [facility] Comment on above: Performed By: #### C BC ####[facility] Ambiphitsu32[address] [place], [place] [address]Dr. Farhat Leal IG # 0.02 10e3/ul Normal 0.00-0.03 [facility] Comment on above: Performed By: #### C BC ####[facility] Bozkvqhowo745[address] [place], [place] [address]Dr. Farhat Leal IG % 0.3 % Normal 0.0-0.5 [facility] Comment on above: Performed By: #### C BC ####[facility] Jkwylgpuzw[address] [place], [place] [address]Dr. Farhat Leal LYMPH # 2.4 103/ul Normal 1.2-3.8 [facility] Comment on above: Performed By: #### C BC ####[facility] Bjfktegfzs14[address] [place], [place] [address]Dr. Farhat Leal Lymphocytes/100 WBC (Bld) 40.4 % Normal 20.5-60.0 [facility] Comment on above: Performed By: #### C BC ####[facility] Ncycqkecbv7263 [place] [phone]. Farhat Leal MANUAL DIFF REQ NO Normal [facility] Comment on above: Performed By: #### C BC ####[facility] Vfnncjrjdf8915 [place] [phone]. Farhat Leal MCH (RBC) [Entitic mass] 31.0 pg Normal 25.9-34.0 [facility] Comment on above: Performed By: #### C BC ####[facility] Gkiplfwkks[address] [place], [place] [address]Dr. Farhat Leal MCHC (RBC) [Mass/Vol] 33.3 g/dL Normal 29.9-35.2 [facility] Comment on above: Performed By: #### C BC ####[facility] Iklycrwlbz[address] [place], [place] [address]Dr. Farhat Leal MCV (RBC) [Entitic vol] 92.9 fL Normal 80.0-94.0 [facility] Comment on above: Performed By: #### C BC ####[facility] Gabigrhcvw257[address] [place], [place] [address]Dr. Farhat Leal MONO # 0.7 103/ul Normal 0.3-0.8 [facility] Comment on above: Performed By: #### C BC ####[facility] Oyxqkxvjcv[address] [place], [place] [address]Dr. Farhat Elvis Monocytes/100 WBC (Bld) 11.1 % Normal 1.7-12.0 [facility] Comment on above: Performed By: #### C BC ####[facility] [address]svzfblrkg[address] [place], [place] [address]Dr. Farhat Leal NEUT # 2.6 103/ul Normal 1.4-6.5 [facility] Comment on above: Performed By: #### C BC ####[facility] Hsfigjrwwo9[address] [place], [place] [address]Dr. Farhat Leal Neutrophils/100 WBC (Bld) 43.4 % Normal 43.0-75.0 [facility] Comment on above: Performed By: #### C BC ####[facility] Hrmmdbwlfz1206 [place] [phone]. Farhat Leal Platelet mean volume (Bld) [Entitic vol] 10.4 fL Normal 9.5-13.5 [facility] Comment on above: Performed By: #### C BC ####[facility] Ebsqffcoti3217 [place] [phone]. Farhat Leal PLT 211 103/ul Normal 150-450 [facility] Comment on above: Performed By: #### C BC ####[facility] Vqpzjelmeg8969 [place] [phone]. Farhat Leal RBC 3.81 106/ul Critically low 4.70-6.10 [facility] Comment on above: Performed By: #### C BC ####[facility] Yjyzuwjsko5109 [place] [phone]. Farhat Leal WBC 6.0 103/ul Normal 4.0-11.0 [facility] Comment on above: Performed By: #### C BC ####[facility] Ztqfawgktz1595 [place] [address]Dr. Farhat Leal PROF 14(COMP METB)on 023 Albumin [Mass/Vol] 2.6 g/dL Critically low 3.4-5.0 [facility] Comment on above: Performed By: #### C MP ####[facility] Vqqgbxwgib7281 [place] [phone]. Farhat Leal Albumin/Globulin [Mass ratio] 0.8 {ratio} Normal [facility] Comment on above: Performed By: #### C MP ####[facility] Lzskwfskmf2187 [place] [phone]. Farhat Leal ALP [Catalytic activity/Vol] 64 U/L Normal 46-116 [facility] Comment on above: Performed By: #### C MP ####[facility] Flsnjcczxg7723 [place] [address]Dr. Farhat Leal ALT [Catalytic activity/Vol] 18 U/L Normal 16-63 [facility] Comment on above: Performed By: #### C MP ####[facility] Tjwsvdbqff0036 [place] [phone]. Farhat Leal Anion gap [Moles/Vol] 10.2 mmol/L Normal [facility] Comment on above: Performed By: #### C MP ####[facility] Cgwomxgpgg9231 [place] [phone]. Farhat Lela AST [Catalytic activity/Vol] 16 U/L Normal 15-37 [facility] Comment on above: Performed By: #### C MP ####[facility] Lhpvbdkqwo5429 [place] [phone]. Farhat Leal Bilirubin [Mass/Vol] 0.6 mg/dL Normal 0.2-1.0 [facility] Comment on above: Performed By: #### C MP ####[facility] Kuzhsoypgs4171 [place] [address]Dr. Farhat Leal Calcium [Mass/Vol] 8.5 mg/dL Normal 8.5-10.1 [facility] Comment on above: Performed By: #### C MP ####[facility] Jknbuubgeg5551 [place] [phone]. Farhat Leal Chloride [Moles/Vol] 106 mmol/L Normal 98-107 [facility] Comment on above: Performed By: #### C MP ####[facility] Vvampymhnm5657 [place] [phone]. Farhat Leal CO2 [Moles/Vol] 29.8 mmol/L Normal 21.0-32.0 [facility] Comment on above: Performed By: #### C MP ####[facility] Glplzpgoeo3833 [place] [phone]. Farhat Leal Creatinine [Mass/Vol] 1.60 mg/dL Critically high 0.70-1.30 [facility] Comment on above: Performed By: #### C MP ####[facility] Nxuzjddbku8271 [place] [phone]. Farhat Leal EGFR-AF [place] 51 mL/min/1.73m2 Critically low >=60 [facility] Comment on above: Performed By: #### C MP ####[facility] Euxgtxrish8270 [place] [phone]. Farhat Leal EGFR-NON AF [place] 42 mL/min/1.73m2 Critically low >=60 [facility] Comment on above: Performed By: #### C MP ####[facility] Bvwfvewhdo8390 [place] [phone]. Farhat Leal Globulin (S) [Mass/Vol] 3.4 g/dL Normal [facility] Comment on above: Performed By: #### C MP ####[facility] Zkztxewglf3775 [place] [phone]. Farhat Leal Glucose [Mass/Vol] 178 mg/dL Critically high 74-106 [facility] Comment on above: Performed By: #### C MP ####[facility] Punvaaxpru3596 [place] [phone]. Farhat Leal Potassium [Moles/Vol] 4.0 mmol/L Normal 3.5-5.1 [facility] Comment on above: Performed By: #### C MP ####[facility] Zzjvtgmefq3927 [place] [phone]. Farhat Leal Protein [Mass/Vol] 6.0 g/dL Critically low 6.4-8.2 [facility] [place] [facility] Comment on above: Performed By: #### C MP ####[facility] Kfoggjatyc7846 [place] [phone]. Farhat Leal Sodium [Moles/Vol] 142 mmol/L Normal 136-145 [facility] Comment on above: Performed By: #### C MP ####[facility] Yrcidvfflv9214 [place] [phone]. Farhat Leal Urea nitrogen [Mass/Vol] 49.0 mg/dL Critically high 7.0-18.0 [facility] Comment on above: Performed By: #### C MP ####[facility] Wwtnqscvqa4906 [place] [phone]. Farhat Leal Urea nitrogen/Creatinine [Mass ratio] 30.6 mg/mg Normal [facility] Comment on above: Performed By: #### C MP ####[facility] Ysycyvvqub9364 [place] [address]Dr. Farhat Leal PROTIMEon 06-26-2022 INR Coag (PPP) [Relative time] 1.77 {INR} Normal [facility] Comment on above: Performed By: #### P T ####[facility] Oregkstyky[address] [place], [place] [address]Dr. Farhat Leal INR GUIDELINES SEE BELOW Normal [facility] Comment on above: Result Comment: MALINA RED INR: 2.0 - 3.0 CONDITIONS NOT LISTED BELOW 2.5 - 3.5 FOR PROSTHETIC HEART VALVE REPLACEMENT 2.5 - 3.5 RECURRENT THROMBOSIS Performed By: #### P T ####[facility] Mgzthbwqay39[address] [place], [place] [address]Dr. Farhat Leal PT Coag (PPP) [Time] 18.2 s Critically high 9.0-11.6 [facility] Comment on above: Performed By: #### P T ####[facility] Koiobpsqri[address] [place], [place] [address]DrSkylar Leal FK506 (TACROLIMUS) WHOLE BLO ODon 06-22-2022 Tacrolimus (FK506), Blood 24.5 ng/mL Invalid Interpretation Code 2.0-20.0 [facility] Comment on above: Result Comment: Trou gh (immediately following transplant) 15.0 . Trough (steady state, 2 weeks or more after transplant): 3.0 - 8.0 . Performed by LC-MS/MS technology.Patient drug level exceeds published reference range. Evaluateclinically for signs of potential toxicity. Performed By: #### F K506T ####[facility] Tfqlqfreom[address] [place], [place] [address]DrSkylar Leal CBC AUTO DIFFon 06-19-2022 BASO # 0.1 103/ul Normal 0.0-0.1 [facility] Comment on above: Performed By: #### C BC ####[facility] Vcjexsoqdy4089 [place] [address]DrSkylar Leal Basophils/100 WBC (Bld) 0.7 % Normal 0.2-2.0 [facility] Comment on above: Performed By: #### C BC ####[facility] Xhhizkzarb2060 [place] [phone]. Farhat Leal EO # 0.4 103/ul Normal 0.0-0.7 [facility] Comment on above: Performed By: #### C BC ####[facility] Inmsqvkcra3094 [place] [phone]. Farhat Leal Eosinophils/100 WBC (Bld) 5.7 % Normal 0.9-7.0 [facility] Comment on above: Performed By: #### C BC ####[facility] Oobfznlgze[address] [place], [place] [address]Dr. Farhat Leal Erythrocyte distribution width (RBC) [Ratio] 14.5 % Normal 11.0-15.0 [facility] Comment on above: Performed By: #### C BC ####[facility] Gsvsctewrl[address] [place], [place] [address]Dr. Farhat Leal Hematocrit (Bld) [Volume fraction] 34.1 % Critically low 42.0-54.0 [facility] Comment on above: Performed By: #### C BC ####[facility] Upxqtbngzc7170 [place] [address]Dr. Farhat Leal Hemoglobin (Bld) [Mass/Vol] 11.3 g/dL Critically low 14.0-18.0 [facility] Comment on above: Performed By: #### C BC ####[facility] Ffycsirqqd[address] [place], [place] [address]Dr. Farhat Leal IG # 0.02 10e3/ul Normal 0.00-0.03 [facility] Comment on above: Performed By: #### C BC ####[facility] Voiazqetux9999 [place] [address]Dr. Farhat Leal IG % 0.3 % Normal 0.0-0.5 [facility] Comment on above: Performed By: #### C BC ####[facility] Cdgjvxfbbl[address] [place], [place] [address]Dr. Farhat Leal LYMPH # 3.1 103/ul Normal 1.2-3.8 [facility] Comment on above: Performed By: #### C BC ####[facility] Cxigrqnnkh3419 [place] [phone]. Farhat Leal Lymphocytes/100 WBC (Bld) 40.6 % Normal 20.5-60.0 [facility] Comment on above: Performed By: #### C BC ####[facility] Bwmzfabkqr7921 [place] [phone]. Farhat Elvis MANUAL DIFF REQ NO Normal [facility] Comment on above: Performed By: #### C BC ####[facility] Xnrmkiijyz4306 [place] [phone]. Farhat Elvis MCH (RBC) [Entitic mass] 30.6 pg Normal 25.9-34.0 [facility] Comment on above: Performed By: #### C BC ####[facility] Zgkrjbiqty87[address] [place], [place] [address]Dr. Farhat Elvis MCHC (RBC) [Mass/Vol] 33.1 g/dL Normal 29.9-35.2 [facility] Comment on above: Performed By: #### C BC ####[facility] Xrdyoqrbta8276 [place] [phone]. Farhat Elvis MCV (RBC) [Entitic vol] 92.4 fL Normal 80.0-94.0 [facility] Comment on above: Performed By: #### C BC ####[facility] Xithaxaukr6245 [place] [address]Dr. Madelynlorri Elvis MONO # 0.8 103/ul Normal 0.3-0.8 [facility] Comment on above: Performed By: #### C BC ####[facility] Mpfccmnpdx8615 [place] [phone]. Madelynlorri Leal Monocytes/100 WBC (Bld) 10.6 % Normal 1.7-12.0 [facility] Comment on above: Performed By: #### C BC ####[facility] Lkkbvptiaj[address] [place], [place] [address]Dr. Farhat Leal NEUT # 3.2 103/ul Normal 1.4-6.5 [facility] Comment on above: Performed By: #### C BC ####[facility] Axjudzzudk1800 [place] [phone]. Farhat Leal Neutrophils/100 WBC (Bld) 42.1 % Critically low 43.0-75.0 [facility] Comment on above: Performed By: #### C BC ####[facility] Afetfbhpnh5414 [place] [phone]. Farhat Leal Platelet mean volume (Bld) [Entitic vol] 10.6 fL Normal 9.5-13.5 [facility] Comment on above: Performed By: #### C BC ####[facility] Bkpzknqnvy0522 [place] [phone]. Farhat Leal PLT 187 103/ul Normal 150-450 [facility] Comment on above: Performed By: #### C BC ####[facility] Myajmznmsp4322 [place] [phone]. Farhat Leal RBC 3.69 106/ul Critically low 4.70-6.10 [facility] Comment on above: Performed By: #### C BC ####[facility] Dontefgrll5414 [place] [phone]. Farhat Leal WBC 7.7 103/ul Normal 4.0-11.0 [facility] Comment on above: Performed By: #### C BC ####[facility] Hnckpwtpsb0507 [place] [address]Dr. Farhat Leal PROF 14(COMP METB)on 023 Albumin [Mass/Vol] 2.5 g/dL Critically low 3.4-5.0 [facility] Comment on above: Performed By: #### C MP ####[facility] Ivnpvbkvzs2887 [place] [address]Dr. Farhat Leal Albumin/Globulin [Mass ratio] 0.8 {ratio} Normal [facility] Comment on above: Performed By: #### C MP ####[facility] Hxbxphxyzc1295 [place] [phone]. Madelynlorri Elvis ALP [Catalytic activity/Vol] 60 U/L Normal 46-116 [facility] Comment on above: Performed By: #### C MP ####[facility] Rustanpkfm3148 [place] [phone]. Farhat Leal ALT [Catalytic activity/Vol] 16 U/L Normal 16-63 [facility] Comment on above: Performed By: #### C MP ####[facility] Gcxrrpqquk8718 [place] [phone]. Farhat Leal Anion gap [Moles/Vol] 9.1 mmol/L Normal [facility] Comment on above: Performed By: #### C MP ####[facility] Kcughrjvtd7515 [place] [phone]. Farhat Leal AST [Catalytic activity/Vol] 31 U/L Normal 15-37 [facility] Comment on above: Performed By: #### C MP ####[facility] Bdpmktyexq6587 [place] [address]Dr. Farhat Leal Bilirubin [Mass/Vol] 0.3 mg/dL Normal 0.2-1.0 [facility] Comment on above: Performed By: #### C MP ####[facility] Agqcbvqlkv6503 [place] [phone]. Farhat Leal Calcium [Mass/Vol] 8.2 mg/dL Critically low 8.5-10.1 [facility] Comment on above: Performed By: #### C MP ####[facility] Bpqypuminy[address] [place], [place] [address]Dr. Farhat Leal Chloride [Moles/Vol] 106 mmol/L Normal 98-107 [facility] Comment on above: Performed By: #### C MP ####[facility] Sjvrbsjwys9299 [place] [phone]. Farhat Leal CO2 [Moles/Vol] 27.0 mmol/L Normal 21.0-32.0 [facility] Comment on above: Performed By: #### C MP ####[facility] Qdalwuiadk5850 [place] [phone]. Farhat Leal Creatinine [Mass/Vol] 1.51 mg/dL Critically high 0.70-1.30 [facility] Comment on above: Performed By: #### C MP ####[facility] Cctcatesco3723 [place], [place] [address]Aw. Farhat Leal EGFR-AF [place] 55 mL/min/1.73m2 Critically low >=60 [facility] Comment on above: Performed By: #### C MP ####[facility] Yhiaayolui6714 [place] [phone]. Farhat Leal EGFR-NON AF [place] 45 mL/min/1.73m2 Critically low >=60 [facility] Comment on above: Performed By: #### C MP ####[facility] Jkmszkmrir3578 [place] [phone]. Farhat Leal Globulin (S) [Mass/Vol] 3.2 g/dL Normal [facility] Comment on above: Performed By: #### C MP ####[facility] Xdwmudlxsb5959 [place] [phone]. Farhat Leal Glucose [Mass/Vol] 165 mg/dL Critically high 74-106 [facility] Comment on above: Performed By: #### C MP ####[facility] Ktshroytkf6884 [place] [phone]. Farhta Leal Potassium [Moles/Vol] 4.1 mmol/L Normal 3.5-5.1 [facility] Comment on above: Performed By: #### C MP ####[facility] Kcpeotdzfn6282 [place] [phone]. Farhat Leal Protein [Mass/Vol] 5.7 g/dL Critically low 6.4-8.2 [facility] Comment on above: Performed By: #### C MP ####[facility] Lelkgnvkyk0681 [place] [phone]. Farhat Leal Sodium [Moles/Vol] 138 mmol/L Normal 136-145 [facility] Comment on above: Performed By: #### C MP ####[facility] Gsdybzzktf7117 [place] [phone]. Farhat Leal Urea nitrogen [Mass/Vol] 51.0 mg/dL Critically high 7.0-18.0 [facility] Comment on above: Performed By: #### C MP ####[facility] Cbnbuobdni[address] [place], [place] [address]Dr. Farhat Leal Urea nitrogen/Creatinine [Mass ratio] 33.8 mg/mg Normal [facility] Comment on above: Performed By: #### C MP ####[facility] Xkqplapfik[address] [place], [place] [address]DrSkylar Leal FK506 (TACROLIMUS) WHOLE BLO ODon 06-15-2022 Tacrolimus (FK506), Blood 16.4 ng/mL Normal 2.0-20.0 [facility] Comment on above: Result Comment: Trou gh (immediately following transplant) 15.0 . Trough (steady state, 2 weeks or more after transplant): 3.0 - 8.0 . Performed by LC-MS/MS technology. Performed By: #### F K506T ####[facility] Fwoxwffydv[address] [place], [place] [address]DrSkylar Leal PROTIMEon 06-15-2022 INR Coag (PPP) [Relative time] 1.64 {INR} Normal [facility] Center Comment on above: Performed By: #### P T ####[facility] Xufsepay[address] [place], [place] [address]DrSkylar Leal INR GUIDELINES SEE BELOW Normal [facility] Comment on above: Result Comment: MALINA RED INR: 2.0 - 3.0 CONDITIONS NOT LISTED BELOW 2.5 - 3.5 FOR PROSTHETIC HEART VALVE REPLACEMENT 2.5 - 3.5 RECURRENT THROMBOSIS Performed By: #### P T ####[facility] Qg[address]qwsedm[address] [place], [place] [address]DrSkylar Leal PT Coag (PPP) [Time] 16.9 s Critically high 9.0-11.6 [facility] Comment on above: Performed By: #### P T ####[facility] Cywkyqyrcc[address] [place], [place] [address]DrSkylar Leal CBC AUTO DIFFon 06-12-2022 BASO # 0.0 103/ul Normal 0.0-0.1 [facility] Comment on above: Performed By: #### C BC ####[facility] Mlcdzejzny[address] [place], [place] [address]DrSkylar Leal Basophils/100 WBC (Bld) 0.4 % Normal 0.2-2.0 [facility] Comment on above: Performed By: #### C BC ####[facility] Xmrgewzvwf215[address] [place], [place] [address]Dr. Farhat Leal EO # 0.4 103/ul Normal 0.0-0.7 [facility] Comment on above: Performed By: #### C BC ####[facility] Vwyggrkovi9[address] [place], [place] [address]Dr. Farhat Leal Eosinophils/100 WBC (Bld) 5.4 % Normal 0.9-7.0 [facility] Comment on above: Performed By: #### C BC ####[facility] Lwjjdyihxh[address] [place], [place] [address]Dr. Farhat Leal Erythrocyte distribution width (RBC) [Ratio] 14.7 % Normal 11.0-15.0 [facility] Comment on above: Performed By: #### C BC ####[facility] Iyfg[address]kfub[address] [place], [place] [address]Dr. Farhat Leal Hematocrit (Bld) [Volume fraction] 34.8 % Critically low 42.0-54.0 [facility] Comment on above: Performed By: #### C BC ####[facility] Zbnnqhllng[address] [place], [place] [address]Dr. Farhat Leal Hemoglobin (Bld) [Mass/Vol] 11.7 g/dL Critically low 14.0-18.0 [facility] Comment on above: Performed By: #### C BC ####[facility] Mbsqyystyz684[address] [place], [place] [address]Dr. Farhat Leal IG # 0.02 10e3/ul Normal 0.00-0.03 [facility] Comment on above: Performed By: #### C BC ####[facility] Lfzemdtcqw939[address] [place], [place] [address]Dr. Farhat Leal IG % 0.3 % Normal 0.0-0.5 [facility] Comment on above: Performed By: #### C BC ####[facility] O[address]bp[address] [place] [address]a. Farhat Elvis LYMPH # 2.5 103/ul Normal 1.2-3.8 [facility] Comment on above: Performed By: #### C BC ####[facility] Taganmgdvl5848 [place] [id number]. Madelynlorri Leal Lymphocytes/100 WBC (Bld) 36.8 % Normal 20.5-60.0 [facility] Comment on above: Performed By: #### C BC ####[facility] Favweuxsbk6084 [place] [address]Dr. Madelynlorri Leal MANUAL DIFF REQ NO Normal [facility] Comment on above: Performed By: #### C BC ####[facility] Bscbhuague6796 [place] [address]Dr. Farhat Elvis MCH (RBC) [Entitic mass] 30.9 pg Normal 25.9-34.0 [facility] Comment on above: Performed By: #### C BC ####[facility] Bnlmwfmgek18[address] [place], [place] [address]Dr. Farhat Elvis MCHC (RBC) [Mass/Vol] 33.6 g/dL Normal 29.9-35.2 [facility] Comment on above: Performed By: #### C BC ####[facility] Eladjgvmxj89[address] [place], [place] [address]Dr. Farhat Leal MCV (RBC) [Entitic vol] 91.8 fL Normal 80.0-94.0 [facility] Comment on above: Performed By: #### C BC ####[facility] Vnnrspsmdn8265 [place] [address]Dr. Farhat Leal MONO # 0.8 103/ul Normal 0.3-0.8 [facility] Comment on above: Performed By: #### C BC ####[facility] Xwnejltmxd650[address] [place], [place] [address]Dr. Farhat Leal Monocytes/100 WBC (Bld) 11.9 % Normal 1.7-12.0 [facility] Comment on above: Performed By: #### C BC ####[facility] Dexelmjtdd790[address] [place], [place] [address]Dr. Farhat Leal NEUT # 3.1 103/ul Normal 1.4-6.5 [facility] Comment on above: Performed By: #### C BC ####[facility] Lvjsvqhttk0229 [place] [address]Dr. Farhat Leal Neutrophils/100 WBC (Bld) 45.2 % Normal 43.0-75.0 [facility] Comment on above: Performed By: #### C BC ####[facility] Mdgnkihaot8444 [place] [address]Dr. Farhat Leal Platelet mean volume (Bld) [Entitic vol] 10.5 fL Normal 9.5-13.5 [facility] Comment on above: Performed By: #### C BC ####[facility] Jevpwiwqho8513 [place] [address]Dr. Farhat Leal PLT 175 103/ul Normal 150-450 [facility] Comment on above: Performed By: #### C BC ####[facility] Otgubgaxrm250[address] [place], [place] [address]Dr. Farhat Leal RBC 3.79 106/ul Critically low 4.70-6.10 [facility] Comment on above: Performed By: #### C BC ####[facility] Pkhxzpdcaq7973 [place] [address]Dr. Farhat Leal WBC 6.8 103/ul Normal 4.0-11.0 [facility] Comment on above: Performed By: #### C BC ####[facility] Glhpstzdqn8849 [place] [address]Dr. Farhat Leal MAGNESIUMon 06-12-2022 Magnesium [Mass/Vol] 1.6 mg/dL Critically low 1.8-2.4 [facility] Comment on above: Performed By: #### C MP, MG, PHOS ####[facility] Qynrtmjkdj2554 [place] [address]Dr. Farhat Leal PHOSPHORUSon 06-12-2022 Phosphate [Mass/Vol] 3.8 mg/dL Normal 2.6-4.7 [facility] Comment on above: Performed By: #### C MP, MG, PHOS ####[facility] Uqdxoxhvfs3900 [place] [address]Dr. Farhat Leal PROF 14(COMP METB)on 023 Albumin [Mass/Vol] 2.6 g/dL Critically low 3.4-5.0 [facility] Comment on above: Performed By: #### C MP, MG, PHOS ####[facility] Edelokrrkl0240 [place] [address]Dr. Farhat Leal Albumin/Globulin [Mass ratio] 0.8 {ratio} Normal [facility] Comment on above: Performed By: #### C MP, MG, PHOS ####[facility] Dtcvqmatne55[address] [place], [place] [address]Dr. Farhat Leal ALP [Catalytic activity/Vol] 64 U/L Normal 46-116 [facility] Comment on above: Performed By: #### C MP, MG, PHOS ####[facility] Iiekgljbhx8811[address] [place], [place] [address]Dr. Farhat Leal ALT [Catalytic activity/Vol] 18 U/L Normal 16-63 [facility] Comment on above: Performed By: #### C MP, MG, PHOS ####[facility] Kevlkxctzw[address] [place], [place] [address]Dr. Farhat Leal Anion gap [Moles/Vol] 12.9 mmol/L Normal [facility] Comment on above: Performed By: #### C MP, MG, PHOS ####[facility] Gvtalorvsk[address] [place], [place] [address]Dr. Farhat Leal AST [Catalytic activity/Vol] 18 U/L Normal 15-37 [facility] Comment on above: Performed By: #### C MP, MG, PHOS ####[facility] Ahvvmtladq410[address] [place], [place] [address]Dr. Farhat Leal Bilirubin [Mass/Vol] 0.4 mg/dL Normal 0.2-1.0 [facility] Comment on above: Performed By: #### C MP, MG, PHOS ####[facility] Hqrjferfgm34[address] [place], [place] [address]Dr. Farhat Leal Calcium [Mass/Vol] 8.7 mg/dL Normal 8.5-10.1 [facility] Comment on above: Performed By: #### C MP, MG, PHOS ####[facility] Fwmstahzjm3659 [place] [address]Dr. Farhat Leal Chloride [Moles/Vol] 105 mmol/L Normal 98-107 [facility] Comment on above: Performed By: #### C MP, MG, PHOS ####[facility] Xevcsktrun0059 [place] [address]Dr. Farhat Leal CO2 [Moles/Vol] 27.9 mmol/L Normal 21.0-32.0 [facility] Comment on above: Performed By: #### C MP, MG, PHOS ####[facility] Igixcjoghb584[address] [place], [place] [address]Dr. Farhat Leal Creatinine [Mass/Vol] 1.53 mg/dL Critically high 0.70-1.30 [facility] Comment on above: Performed By: #### C MP, MG, PHOS ####[facility] Nzsgykicdt39[address] [place], [place] [address]Dr. Farhat Leal EGFR-AF [place] 54 mL/min/1.73m2 Critically low >=60 [facility] Comment on above: Performed By: #### C MP, MG, PHOS ####[facility] Jokcaziyud[address] [place], [place] [address]Dr. Farhat Leal EGFR-NON AF [place] 44 mL/min/1.73m2 Critically low >=60 [facility] Comment on above: Performed By: #### C MP, MG, PHOS ####[facility] Brahdrfxvt5215 [place] [address]Dr. Farhat Leal Globulin (S) [Mass/Vol] 3.4 g/dL Normal [facility] Comment on above: Performed By: #### C MP, MG, PHOS ####[facility] Pujayofhha0098 [place] [address]Dr. Farhat Leal Glucose [Mass/Vol] 179 mg/dL Critically high 74-106 [facility] Comment on above: Performed By: #### C MP, MG, PHOS ####[facility] Ocimlvfaeh0104 [place] [address]Dr. Farhat Leal Potassium [Moles/Vol] 3.8 mmol/L Normal 3.5-5.1 [facility] Comment on above: Performed By: #### C MP, MG, PHOS ####[facility] Kyoeooqnzv1131 [place] [address]Dr. Farhat Leal Protein [Mass/Vol] 6.0 g/dL Critically low 6.4-8.2 [facility] Comment on above: Performed By: #### C MP, MG, PHOS ####[facility] Bamldrbwcg42[address] [place], [place] [address]Dr. Farhat Leal Sodium [Moles/Vol] 142 mmol/L Normal 136-145 [facility] Comment on above: Performed By: #### C MP, MG, PHOS ####[facility] Tkgjgkvwaf[address] [place], [place] [address]Dr. Farhat Leal Urea nitrogen [Mass/Vol] 56.0 mg/dL Critically high 7.0-18.0 [facility] Comment on above: Performed By: #### C MP, MG, PHOS ####[facility] Mofjsbxjle[address] [place], [place] [address]Dr. Farhat Leal Urea nitrogen/Creatinine [Mass ratio] 36.6 mg/mg Normal [facility] Comment on above: Performed By: #### C MP, MG, PHOS ####[facility] Dcyaxapyem[address] [place], [place] [address]Dr. Farhat Leal FK506 (TACROLIMUS) WHOLE BLO ODon 06-08-2022 Tacrolimus (FK506), Blood 13.2 ng/mL Normal 2.0-20.0 [facility] Comment on above: Result Comment: Trou gh (immediately following transplant) 15.0 . Trough (steady state, 2 weeks or more after transplant): 3.0 - 8.0 . Performed by LC-MS/MS technology. Performed By: #### F K506T ####[facility] Lqfluchoab[address] [place], [place] [address]Dr. Farhat Leal CBC AUTO DIFFon 06-05-2022 BASO # 0.1 103/ul Normal 0.0-0.1 [facility] Comment on above: Performed By: #### C BC ####[facility] Dqlqgbptcj8857 [place] [address]Dr. Farhat Leal Basophils/100 WBC (Bld) 0.8 % Normal 0.2-2.0 [facility] Comment on above: Performed By: #### C BC ####[facility] Rfuykuzavx9917 [place] [address]Dr. Farhat Leal EO # 0.3 103/ul Normal 0.0-0.7 [facility] Comment on above: Performed By: #### C BC ####[facility] Oorpxewgod9330 [place] [address]Dr. Farhat Leal Eosinophils/100 WBC (Bld) 4.7 % Normal 0.9-7.0 [facility] Comment on above: Performed By: #### C BC ####[facility] Rakkgpdowe7608 [place] [address]Dr. Farhat Leal Erythrocyte distribution width (RBC) [Ratio] 15.1 % Critically high 11.0-15.0 [facility] Comment on above: Performed By: #### C BC ####[facility] Glcpvongev5150 [place] [address]Dr. Farhat Leal Hematocrit (Bld) [Volume fraction] 35.5 % Critically low 42.0-54.0 [facility] Comment on above: Performed By: #### C BC ####[facility] Wdqdgifcju0386 [place] [address]Dr. Farhat Leal Hemoglobin (Bld) [Mass/Vol] 11.7 g/dL Critically low 14.0-18.0 [facility] Comment on above: Performed By: #### C BC ####[facility] Tyziahuwgf8861 [place] [address]Dr. Farhat Elvis IG # 0.01 10e3/ul Normal 0.00-0.03 [facility] Comment on above: Performed By: #### C BC ####[facility] Wsafucfkxs6722 [place] [id number]. Fahrat Leal IG % 0.2 % Normal 0.0-0.5 [facility] Comment on above: Performed By: #### C BC ####[facility] Dgfedjpyrp0288 [place] [phone]. Farhat Leal LYMPH # 2.1 103/ul Normal 1.2-3.8 [facility] Comment on above: Performed By: #### C BC ####[facility] Msnbyjuzkd5379 [place] [phone]. Farhat Elvis Lymphocytes/100 WBC (Bld) 34.5 % Normal 20.5-60.0 [facility] Comment on above: Performed By: #### C BC ####[facility] Dhtnuhpxuw2478 [place] [phone]. Farhat Elvis MANUAL DIFF REQ NO Normal [facility] Comment on above: Performed By: #### C BC ####[facility] Gyxlyydyhn9786 [place] [phone]. Farhat Leal MCH (RBC) [Entitic mass] 30.6 pg Normal 25.9-34.0 [facility] Comment on above: Performed By: #### C BC ####[facility] Jrfgkuyfvt7829 [place] [phone]. Farhat Leal MCHC (RBC) [Mass/Vol] 33.0 g/dL Normal 29.9-35.2 [facility] Comment on above: Performed By: #### C BC ####[facility] Rsafsmmqax2208 [place] [phone]. Farhat Leal MCV (RBC) [Entitic vol] 92.9 fL Normal 80.0-94.0 [facility] Comment on above: Performed By: #### C BC ####[facility] Uoqjlpdfzm4606 [place] [phone]. Farhat Elvis MONO # 0.7 103/ul Normal 0.3-0.8 [facility] Comment on above: Performed By: #### C BC ####[facility] Seaypwbqlw2365 [place] [phone]. Farhat Leal Monocytes/100 WBC (Bld) 11.4 % Normal 1.7-12.0 [facility] Comment on above: Performed By: #### C BC ####[facility] Bmtelpdrpw4442 [place] [phone]. Farhat Leal NEUT # 2.9 103/ul Normal 1.4-6.5 [facility] Comment on above: Performed By: #### C BC ####[facility] Gqdhsawiso5254 [place] [phone]. Farhat Leal Neutrophils/100 WBC (Bld) 48.4 % Normal 43.0-75.0 [facility] Comment on above: Performed By: #### C BC ####[facility] Bsxzfpluyi8501 [place] [phone]. Farhat Leal Platelet mean volume (Bld) [Entitic vol] 10.7 fL Normal 9.5-13.5 [facility] Comment on above: Performed By: #### C BC ####[facility] Cbkqqnhjiq2761 [place] [phone]. Farhat Leal PLT 185 103/ul Normal 150-450 [facility] Comment on above: Performed By: #### C BC ####[facility] Qnotcdcsqb8896 [place] [phone]. Farhat Leal RBC 3.82 106/ul Critically low 4.70-6.10 [facility] Comment on above: Performed By: #### C BC ####[facility] Befizlxmzt5325 [place] [phone]. Farhat Leal WBC 6.0 103/ul Normal 4.0-11.0 [facility] Comment on above: Performed By: #### C BC ####[facility] Qbjvtzpnbk0054 [place] [phone]. Farhat Leal MAGNESIUMon 06-05-2022 Magnesium [Mass/Vol] 1.9 mg/dL Normal 1.8-2.4 [facility] Comment on above: Performed By: #### P HOS, MG ####[facility] Yuyvfigpqt4871 [place] [phone]. Madelynlorri Leal PHOSPHORUSon 06-05-2022 Phosphate [Mass/Vol] 4.4 mg/dL Normal 2.6-4.7 [facility] Comment on above: Performed By: #### P HOS, MG ####[facility] Gffnhwqmiz3206 [place] [address]Dr. Farhat Leal PROTIMEon 06-05-2022 INR Coag (PPP) [Relative time] 2.16 {INR} Normal [facility] Comment on above: Performed By: #### P T ####[facility] Idwbyrzblq7945 [place] [address]Dr. Farhat Leal INR GUIDELINES SEE BELOW Normal [facility] Comment on above: Result Comment: MALINA RED INR: 2.0 - 3.0 CONDITIONS NOT LISTED BELOW 2.5 - 3.5 FOR PROSTHETIC HEART VALVE REPLACEMENT 2.5 - 3.5 RECURRENT THROMBOSIS Performed By: #### P T ####[facility] Wgockedpal[address] [place], [place] [address]Dr. Farhat Leal PT Coag (PPP) [Time] 21.9 s Critically high 9.0-11.6 [facility] Comment on above: Performed By: #### P T ####[facility] Izvxxkakrl250[address] [place], [place] [address]Dr. Farhat Leal FK506 (TACROLIMUS) WHOLE BLO ODon 06-01-2022 Tacrolimus (FK506), Blood 26.4 ng/mL Invalid Interpretation Code 2.0-20.0 [facility] Comment on above: Result Comment: Trou gh (immediately following transplant) 15.0 . Trough (steady state, 2 weeks or more after transplant): 3.0 - 8.0 . Performed by LC-MS/MS technology.Patient drug level exceeds published reference range. Evaluateclinically for signs of potential toxicity. Performed By: #### F K506T ####[facility] Diiyqawpul9355 [place] [address]DrSkylar Leal CBC AUTO DIFFon 05-29-2022 BASO # 0.0 103/ul Normal 0.0-0.1 [facility] Comment on above: Performed By: #### C BC ####[facility] Twoyrhbxwv0064 [place] [phone]. Farhat Leal Basophils/100 WBC (Bld) 0.6 % Normal 0.2-2.0 [facility] Comment on above: Performed By: #### C BC ####[facility] Zncvrtouwr[address] [place], [place] [address]Dr. Farhat Leal EO # 0.3 103/ul Normal 0.0-0.7 [facility] Comment on above: Performed By: #### C BC ####[facility] Azexvmrpps59[address] [place], [place] [address]Dr. Farhat Leal Eosinophils/100 WBC (Bld) 4.7 % Normal 0.9-7.0 [facility] Comment on above: Performed By: #### C BC ####[facility] Lugpgvwuwy57[address] [place], [place] [address]Dr. Farhat Leal Erythrocyte distribution width (RBC) [Ratio] 15.3 % Critically high 11.0-15.0 [facility] Comment on above: Performed By: #### C BC ####[facility] Iouthiuynd8[address] [place], [place] [address]Dr. Farhat Leal Hematocrit (Bld) [Volume fraction] 36.6 % Critically low 42.0-54.0 [facility] Comment on above: Performed By: #### C BC ####[facility] Opqsvasvvi[address] [place], [place] [address]Dr. Farhat Leal Hemoglobin (Bld) [Mass/Vol] 12.3 g/dL Critically low 14.0-18.0 [facility] Comment on above: Performed By: #### C BC ####[facility] Mzefashmiu[address] [place], [place] [address]Dr. Farhat Leal IG # 0.02 10e3/ul Normal 0.00-0.03 [facility] Comment on above: Performed By: #### C BC ####[facility] Iqsf[address]oyhx[address] [place], [place] [address]Dr. Farhat Leal IG % 0.3 % Normal 0.0-0.5 [facility] Comment on above: Performed By: #### C BC ####[facility] Pvlruqdsyx1931 [place] [phone]. Farhat Elvis LYMPH # 2.8 103/ul Normal 1.2-3.8 [facility] Comment on above: Performed By: #### C BC ####[facility] Cdewdyesdr0721 [place] [phone]. Farhat Leal Lymphocytes/100 WBC (Bld) 44.4 % Normal 20.5-60.0 [facility] Comment on above: Performed By: #### C BC ####[facility] Chanjwbipd0370 [place] [address]Dr. Farhat Leal MANUAL DIFF REQ NO Normal [facility] Comment on above: Performed By: #### C BC ####[facility] Ujvsuddbsw5883 [place] [phone]. Farhat Leal MCH (RBC) [Entitic mass] 30.4 pg Normal 25.9-34.0 [facility] Comment on above: Performed By: #### C BC ####[facility] Utihgwjfat9573 [place] [phone]. Madelynlorri Leal MCHC (RBC) [Mass/Vol] 33.6 g/dL Normal 29.9-35.2 [facility] Comment on above: Performed By: #### C BC ####[facility] Qelkztlltw3178 [place] [phone]. Farhat Leal MCV (RBC) [Entitic vol] 90.4 fL Normal 80.0-94.0 [facility] Comment on above: Performed By: #### C BC ####[facility] Cfdywjpmtm2264 [place] [phone]. Farhat Leal MONO # 0.7 103/ul Normal 0.3-0.8 [facility] Comment on above: Performed By: #### C BC ####[facility] Fvnyxxnmzf1807 [place] [phone]. Farhat Leal Monocytes/100 WBC (Bld) 10.7 % Normal 1.7-12.0 [facility] Comment on above: Performed By: #### C BC ####[facility] Xankztgzrf2000 [place] [phone]. Farhat Leal NEUT # 2.5 103/ul Normal 1.4-6.5 [facility] Comment on above: Performed By: #### C BC ####[facility] Cecrgxoavc4401 [place] [phone]. Farhat Leal Neutrophils/100 WBC (Bld) 39.3 % Critically low 43.0-75.0 [facility] Comment on above: Performed By: #### C BC ####[facility] Kqdpxaylvj5122 [place] [phone]. Farhat Leal Platelet mean volume (Bld) [Entitic vol] 10.5 fL Normal 9.5-13.5 [facility] Comment on above: Performed By: #### C BC ####[facility] Cpifesadgs6440 [place] [phone]. Farhat Leal PLT 190 103/ul Normal 150-450 [facility] Comment on above: Performed By: #### C BC ####[facility] Xricfzymam9543 [place] [phone]. Farhat Leal RBC 4.05 106/ul Critically low 4.70-6.10 [facility] Comment on above: Performed By: #### C BC ####[facility] Uywohbecic2518 [place] [phone]. Farhat Leal WBC 6.4 103/ul Normal 4.0-11.0 [facility] Comment on above: Performed By: #### C BC ####[facility] Bggakzbslm0429 [place] [phone] Leal PROF 14(COMP METB)on 023 Albumin [Mass/Vol] 2.5 g/dL Critically low 3.4-5.0 [facility] Comment on above: Performed By: #### C MP ####[facility] Ulalqlpmau6917 [place] [phone] Leal Albumin/Globulin [Mass ratio] 0.8 {ratio} Normal [facility] Comment on above: Performed By: #### C MP ####[facility] Hgbftppqby4441 [place] [address]Dr. Farhat Leal ALP [Catalytic activity/Vol] 61 U/L Normal 46-116 [facility] Comment on above: Performed By: #### C MP ####[facility] Hoeyphvbsb3011 [place] [address]Dr. Farhat Elvis ALT [Catalytic activity/Vol] 16 U/L Normal 16-63 [facility] Comment on above: Performed By: #### C MP ####[facility] Lprfufymlu4661 [place] [address]Dr. Farhat Elvis Anion gap [Moles/Vol] 12.3 mmol/L Normal [facility] Comment on above: Performed By: #### C MP ####[facility] Ayjvlchram[address] [place], [place] [address]Dr. Farhat Elvis AST [Catalytic activity/Vol] 18 U/L Normal 15-37 [facility] Comment on above: Performed By: #### C MP ####[facility] Kheotnzyru[address] [place], [place] [address]Dr. Farhat Elvis Bilirubin [Mass/Vol] 0.5 mg/dL Normal 0.2-1.0 [facility] Comment on above: Performed By: #### C MP ####[facility] Ytgxngjcjk[address] [place], [place] [address]Dr. Farhat Elvis Calcium [Mass/Vol] 8.6 mg/dL Normal 8.5-10.1 [facility] Comment on above: Performed By: #### C MP ####[facility] Fcihvmmyej668[address] [place] [address]Dr. Farhat Leal Chloride [Moles/Vol] 105 mmol/L Normal 98-107 [facility] Comment on above: Performed By: #### C MP ####[facility] Iksxthlwpp2345 [place] [address]Dr. Farhat Leal CO2 [Moles/Vol] 28.6 mmol/L Normal 21.0-32.0 [facility] Comment on above: Performed By: #### C MP ####[facility] Pwompkvbul3602 [place] [id number]. Farhat Leal Creatinine [Mass/Vol] 1.47 mg/dL Critically high 0.70-1.30 [facility] Comment on above: Performed By: #### C MP ####[facility] Cqsrcpakgx7657 [place] [id number]. Farhat Leal EGFR-AF [place] 56 mL/min/1.73m2 Critically low >=60 [facility] Comment on above: Performed By: #### C MP ####[facility] Xqodmhwdhv5538 [place] [id number]. Farhat Elvis EGFR-NON AF [place] 46 mL/min/1.73m2 Critically low >=60 [facility] Comment on above: Performed By: #### C MP ####[facility] Prjzjwopis39[address] [place] [address]Dr. Farhat Elvis Globulin (S) [Mass/Vol] 3.3 g/dL Normal [facility] Comment on above: Performed By: #### C MP ####[facility] Xwuhrqfzjj0317 [place] [address]Dr. Farhat Leal Glucose [Mass/Vol] 164 mg/dL Critically high 74-106 [facility] Comment on above: Performed By: #### C MP ####[facility] Hdcuzlsstj0590 [place] [address]Dr. Farhat Elvis Potassium [Moles/Vol] 3.9 mmol/L Normal 3.5-5.1 [facility] Comment on above: Performed By: #### C MP ####[facility] Fmzrsjteao2123 [place] [address]Dr. Farhat Leal Protein [Mass/Vol] 5.8 g/dL Critically low 6.4-8.2 [facility] Comment on above: Performed By: #### C MP ####[facility] Lbydlfkqty8106 [place] [address]Dr. Farhat Elvis Sodium [Moles/Vol] 142 mmol/L Normal 136-145 [facility] Comment on above: Performed By: #### C MP ####[facility] Tinzucautm1922 [place] [address]Dr. Farhat Leal Urea nitrogen [Mass/Vol] 53.0 mg/dL Critically high 7.0-18.0 [facility] Comment on above: Performed By: #### C MP ####[facility] Zulbowjqvs65[address] [place], [place] [address]Dr. Farhat Leal Urea nitrogen/Creatinine [Mass ratio] 36.1 mg/mg Normal [facility] Comment on above: Performed By: #### C MP ####[facility] Olpdqbjzsy[address] [place], [place] [address]Dr. Farhat Leal PROTIMEon 05-29-2022 INR Coag (PPP) [Relative time] 2.41 {INR} Normal [facility] Comment on above: Performed By: #### P T ####[facility] Sdimlgzyvs37[address] [place], [place] [address]Dr. Farhat Leal INR GUIDELINES SEE BELOW Normal [facility] Comment on above: Result Comment: MALINA RED INR: 2.0 - 3.0 CONDITIONS NOT LISTED BELOW 2.5 - 3.5 FOR PROSTHETIC HEART VALVE REPLACEMENT 2.5 - 3.5 RECURRENT THROMBOSIS Performed By: #### P T ####[facility] Ytzoositfw04[address] [place], [place] [address]Dr. Farhat Leal PT Coag (PPP) [Time] 24.3 s Critically high 9.0-11.6 [facility] Comment on above: Performed By: #### P T ####[facility] Kjlvgiyosp7[address] [place], [place] [address]Dr. Farhat Leal FK506 (TACROLIMUS) WHOLE BLO ODon 05-25-2022 Tacrolimus (FK506), Blood 5.1 ng/mL Normal 2.0-20.0 [facility] Comment on above: Result Comment: Trou gh (immediately following transplant) 15.0 . Trough (steady state, 2 weeks or more after transplant): 3.0 - 8.0 . Performed by LC-MS/MS technology. Performed By: #### F K506T ####[facility] Vgmawiebfd4408 [place] [address]Dr. Farhat Leal CBC AUTO DIFFon 05-22-2022 BASO # 0.0 103/ul Normal 0.0-0.1 [facility] Comment on above: Performed By: #### C BC ####[facility] Ggqxjloprr[address] [place], [place] [address]Dr. Farhat Leal Basophils/100 WBC (Bld) 0.5 % Normal 0.2-2.0 [facility] Comment on above: Performed By: #### C BC ####[facility] Cypecrtntq[address] [place], [place] [address]Dr. Farhat Leal EO # 0.2 103/ul Normal 0.0-0.7 [facility] Comment on above: Performed By: #### C BC ####[facility] Ygxjuyamur9[address] [place], [place] [address]Dr. Madelynlorri Leal Eosinophils/100 WBC (Bld) 4.0 % Normal 0.9-7.0 [facility] Comment on above: Performed By: #### C BC ####[facility] Xsguuxyfwx[address] [place], [place] [address]Dr. Farhat Leal Erythrocyte distribution width (RBC) [Ratio] 15.5 % Critically high 11.0-15.0 [facility] Comment on above: Performed By: #### C BC ####[facility] Akvxenjoea[address] [place], [place] [address]Dr. Farhat Leal Hematocrit (Bld) [Volume fraction] 34.1 % Critically low 42.0-54.0 [facility] Comment on above: Performed By: #### C BC ####[facility] Vupbtlddfh86[address] [place], [place] [address]Dr. Farhat Leal Hemoglobin (Bld) [Mass/Vol] 11.3 g/dL Critically low 14.0-18.0 [facility] Comment on above: Performed By: #### C BC ####[facility] Xsmyauezrd[address] [place], [place] [address]Dr. Farhat Leal IG # 0.03 10e3/ul Normal 0.00-0.03 [facility] Comment on above: Performed By: #### C BC ####[facility] Xhpogalcsf3209 [place] [id number]. Farhat Leal IG % 0.5 % Normal 0.0-0.5 [facility] Comment on above: Performed By: #### C BC ####[facility] Gofdypbwvg9822 [place] [phone]. Farhat Leal LYMPH # 2.1 103/ul Normal 1.2-3.8 [facility] Comment on above: Performed By: #### C BC ####[facility] Ebzryijxcz9539 [place] [phone]. Farhat Elvis Lymphocytes/100 WBC (Bld) 34.6 % Normal 20.5-60.0 [facility] Comment on above: Performed By: #### C BC ####[facility] Omnophrnul8496 [place] [phone]. Farhat Leal MANUAL DIFF REQ NO Normal [facility] Comment on above: Performed By: #### C BC ####[facility] Vxtcmfjsdz7828 [place] [phone]. Farhat Leal MCH (RBC) [Entitic mass] 30.3 pg Normal 25.9-34.0 [facility] Comment on above: Performed By: #### C BC ####[facility] Gpypfdpfcp7160 [place] [phone]. Farhat Leal MCHC (RBC) [Mass/Vol] 33.1 g/dL Normal 29.9-35.2 [facility] Comment on above: Performed By: #### C BC ####[facility] Xiksmnnund[address] [place], [place] [address]Dr. Farhta Leal MCV (RBC) [Entitic vol] 91.4 fL Normal 80.0-94.0 [facility] Comment on above: Performed By: #### C BC ####[facility] Bvbycipiot5803 [place] [phone]. Farhat Elvis MONO # 0.7 103/ul Normal 0.3-0.8 [facility] Comment on above: Performed By: #### C BC ####[facility] Viqplchair4554 [place] [phone]. Farhat Leal Monocytes/100 WBC (Bld) 11.6 % Normal 1.7-12.0 [facility] Comment on above: Performed By: #### C BC ####[facility] Jwofmqtajv5894 [place] [phone]. Farhat Leal NEUT # 2.9 103/ul Normal 1.4-6.5 [facility] Comment on above: Performed By: #### C BC ####[facility] Ovixhrleyy6764 [place] [phone]. Farhat Leal Neutrophils/100 WBC (Bld) 48.8 % Normal 43.0-75.0 [facility] Comment on above: Performed By: #### C BC ####[facility] Edgpxmsytp4765 [place] [phone]. Farhat Leal Platelet mean volume (Bld) [Entitic vol] 10.9 fL Normal 9.5-13.5 [facility] Comment on above: Performed By: #### C BC ####[facility] Bbejrxgldo8130 [place] [phone]. Farhat Leal PLT 186 103/ul Normal 150-450 [facility] Comment on above: Performed By: #### C BC ####[facility] Lfogonlpjv0887 [place] [phone]. Farhat Leal RBC 3.73 106/ul Critically low 4.70-6.10 [facility] Comment on above: Performed By: #### C BC ####[facility] Uxbxinflqy4908 [place] [phone]. Farhat Leal WBC 6.0 103/ul Normal 4.0-11.0 [facility] Comment on above: Performed By: #### C BC ####[facility] Ugrczwgqcv0079 [place] [phone]. Farhat Leal PROF 14(COMP METB)on 023 Albumin [Mass/Vol] 2.7 g/dL Critically low 3.4-5.0 [facility] Comment on above: Performed By: #### C MP ####[facility] Uujywtvedl1514 [place] [phone]. Farhat Elvis Albumin/Globulin [Mass ratio] 0.8 {ratio} Normal [facility] Comment on above: Performed By: #### C MP ####[facility] Unbdfgjplp6283 [place] [phone]. Madelynlorri Elvis ALP [Catalytic activity/Vol] 60 U/L Normal 46-116 [facility] Comment on above: Performed By: #### C MP ####[facility] Mrazjrluxf[address] [place], [place] [address]Dr. Farhat Elvis ALT [Catalytic activity/Vol] 17 U/L Normal 16-63 [facility] Comment on above: Performed By: #### C MP ####[facility] Hleitanozj[address] [place], [place] [address]Dr. Farhat Leal Anion gap [Moles/Vol] 9.6 mmol/L Normal [facility] Comment on above: Performed By: #### C MP ####[facility] Tyupftchgf15[address] [place], [place] [address]Dr. Farhat Elvis AST [Catalytic activity/Vol] 14 U/L Critically low 15-37 [facility] Comment on above: Performed By: #### C MP ####[facility] Sorndrgknf[address] [place], [place] [address]Dr. Farhat Leal Bilirubin [Mass/Vol] 0.5 mg/dL Normal 0.2-1.0 [facility] Comment on above: Performed By: #### C MP ####[facility] Kwiuzrcmtr230[address] [place], [place] [address]Dr. Farhat Leal Calcium [Mass/Vol] 8.4 mg/dL Critically low 8.5-10.1 [facility] Comment on above: Performed By: #### C MP ####[facility] Sazenmbthm[address] [place], [place] [address]Dr. Farhat Leal Chloride [Moles/Vol] 104 mmol/L Normal 98-107 [facility] Comment on above: Performed By: #### C MP ####[facility] Hhplzdqsja0276 [place] [address]Dr. Farhat Leal CO2 [Moles/Vol] 27.2 mmol/L Normal 21.0-32.0 [facility] Comment on above: Performed By: #### C MP ####[facility] Bnmthogmdq2117 [place] [address]Dr. Farhat Leal Creatinine [Mass/Vol] 1.24 mg/dL Normal 0.70-1.30 [facility] Comment on above: Performed By: #### C MP ####[facility] Ibemizhlla7858 [place] [address]Dr. Farhat Leal EGFR-AF [place] >60 Normal >=60 [facility] Comment on above: Performed By: #### C MP ####[facility] Wuhjhiwqwx9600 [place] [address]Dr. Farhat Elvis EGFR-NON AF [place] 57 mL/min/1.73m2 Critically low >=60 [facility] Comment on above: Performed By: #### C MP ####[facility] Fvevxtnhfc7862 [place] [address]Dr. Farhat Leal Globulin (S) [Mass/Vol] 3.3 g/dL Normal [facility] Comment on above: Performed By: #### C MP ####[facility] Jhcqvrlbqz7924 [place] [address]Dr. Farhat Elvis Glucose [Mass/Vol] 275 mg/dL Critically high 74-106 [facility] Comment on above: Performed By: #### C MP ####[facility] Sudotfajnd9863 [place] [address]Dr. Farhat Elvis Potassium [Moles/Vol] 3.8 mmol/L Normal 3.5-5.1 [facility] Comment on above: Performed By: #### C MP ####[facility] Jeexkeukjq9[address] [place], [place] [address]Dr. Farhat Leal Protein [Mass/Vol] 6.0 g/dL Critically low 6.4-8.2 [facility] Comment on above: Performed By: #### C MP ####[facility] Fvgpsiazqf6103 [place] [address]Dr. Farhat Leal Sodium [Moles/Vol] 137 mmol/L Normal 136-145 [facility] Comment on above: Performed By: #### C MP ####[facility] Jpdycdaqib57[address] [place], [place] [address]Dr. Farhat Leal Urea nitrogen [Mass/Vol] 54.0 mg/dL Critically high 7.0-18.0 [facility] Comment on above: Performed By: #### C MP ####[facility] Vakqjznnpo9[address] [place], [place] [address]Dr. Farhat Leal Urea nitrogen/Creatinine [Mass ratio] 43.5 mg/mg Normal [facility] Comment on above: Performed By: #### C MP ####[facility] Nzemfjfpnw[address] [place], [place] [address]Dr. Farhat Leal PROTIMEon 05-22-2022 INR Coag (PPP) [Relative time] 2.27 {INR} Normal [facility] Comment on above: Performed By: #### P T ####[facility] Xvwroloynb[address] [place], [place] [address]Dr. Farhat Leal INR GUIDELINES SEE BELOW Normal [facility] Comment on above: Result Comment: MALINA RED INR: 2.0 - 3.0 CONDITIONS NOT LISTED BELOW 2.5 - 3.5 FOR PROSTHETIC HEART VALVE REPLACEMENT 2.5 - 3.5 RECURRENT THROMBOSIS Performed By: #### P T ####[facility] Rlgdhlxwlo996[address] [place], [place] [address]Dr. Farhat Leal PT Coag (PPP) [Time] 23.0 s Critically high 9.0-11.6 [facility] Comment on above: Performed By: #### P T ####[facility] Rmfiecmnfg[address] [place], [place] [address]Dr. Farhat Leal FK506 (TACROLIMUS) WHOLE BLO ODon 05-19-2022 Tacrolimus (FK506), Blood 7.8 ng/mL Normal 2.0-20.0 [facility] Comment on above: Result Comment: Trou gh (immediately following transplant) 15.0 . Trough (steady state, 2 weeks or more after transplant): 3.0 - 8.0 . Performed by LC-MS/MS technology. Performed By: #### F K506T ####[facility] Mupugdfwdn8941 [place] [address]Dr. Farhat Leal CBC AUTO DIFFon 05-15-2022 BASO # 0.0 103/ul Normal 0.0-0.1 [facility] Comment on above: Performed By: #### C BC ####[facility] Iectnonjmw9289 [place] [address]Dr. Farhat Elvis Basophils/100 WBC (Bld) 0.4 % Normal 0.2-2.0 [facility] Comment on above: Performed By: #### C BC ####[facility] Xsovcjaabl9[address] [place], [place] [address]Dr. Farhat Leal EO # 0.2 103/ul Normal 0.0-0.7 [facility] Comment on above: Performed By: #### C BC ####[facility] Nhipcbktgc9[address] [place], [place] [address]Dr. Farhat Elvis Eosinophils/100 WBC (Bld) 3.0 % Normal 0.9-7.0 [facility] Comment on above: Performed By: #### C BC ####[facility] Dcdohimuyr685[address] [place], [place] [address]Dr. Farhat Leal Erythrocyte distribution width (RBC) [Ratio] 15.7 % Critically high 11.0-15.0 [facility] Comment on above: Performed By: #### C BC ####[facility] Thmbtyfmae62[address] [place], [place] [address]Dr. Farhat Leal Hematocrit (Bld) [Volume fraction] 36.8 % Critically low 42.0-54.0 [facility] Comment on above: Performed By: #### C BC ####[facility] Bgoyssxvhp434[address] [place], [place] [address]Dr. Farhat Leal Hemoglobin (Bld) [Mass/Vol] 12.4 g/dL Critically low 14.0-18.0 [facility] Comment on above: Performed By: #### C BC ####[facility] Syprokrfni160[address] [place], [place] [address]DrSkylar Leal IG # 0.01 10e3/ul Normal 0.00-0.03 [facility] Comment on above: Performed By: #### C BC ####[facility] Slylsuksil5449 [place] [address]DrSkylar Leal IG % 0.1 % Normal 0.0-0.5 [facility] Comment on above: Performed By: #### C BC ####[facility] Qskskzipag2522 [place] [address]DrSkylar Leal LYMPH # 2.4 103/ul Normal 1.2-3.8 [facility] Comment on above: Performed By: #### C BC ####[facility] Iyjugzcfdv147[address] [place], [place] [address]DrSkylar Leal Lymphocytes/100 WBC (Bld) 35.6 % Normal 20.5-60.0 [facility] Comment on above: Performed By: #### C BC ####[facility] Hyboewxsrq87[address] [place], [place] [address]DrSkylar Leal MANUAL DIFF REQ NO Normal [facility] Comment on above: Performed By: #### C BC ####[facility] Hfbwiamrhk44[address] [place], [place] [address]DrSkylar Leal MCH (RBC) [Entitic mass] 30.1 pg Normal 25.9-34.0 [facility] Comment on above: Performed By: #### C BC ####[facility] Yewbzkjwim[address] [place], [place] [address]DrSkylar Leal MCHC (RBC) [Mass/Vol] 33.7 g/dL Normal 29.9-35.2 [facility] Comment on above: Performed By: #### C BC ####[facility] Cdaryfmnps6422 [place] [address]DrSkylar Leal MCV (RBC) [Entitic vol] 89.3 fL Normal 80.0-94.0 [facility] Comment on above: Performed By: #### C BC ####[facility] Fkrdfrkgfr[address] [place], [place] [address]DrSkylar Leal MONO # 0.7 103/ul Normal 0.3-0.8 [facility] Comment on above: Performed By: #### C BC ####[facility] Fxwusjvdlr9093 [place] [phone] Leal Monocytes/100 WBC (Bld) 10.8 % Normal 1.7-12.0 [facility] Comment on above: Performed By: #### C BC ####[facility] Wtwmvpbiwj2733 [place] [phone] Leal NEUT # 3.4 103/ul Normal 1.4-6.5 [facility] Comment on above: Performed By: #### C BC ####[facility] Ajwwpohlma2954 [place] [address]DrSkylar Farhat Leal Neutrophils/100 WBC (Bld) 50.1 % Normal 43.0-75.0 [facility] Comment on above: Performed By: #### C BC ####[facility] Yldgwtqakf[address] [place], [place] [address]DrSkylar Farhat Leal Platelet mean volume (Bld) [Entitic vol] 10.2 fL Normal 9.5-13.5 [facility] Comment on above: Performed By: #### C BC ####[facility] Smrhbmzxqh80[address] [place], [place] [address]Dr. Farhat Leal PLT 190 103/ul Normal 150-450 [facility] Comment on above: Performed By: #### C BC ####[facility] Ziciqyoczl0749 [place] [phone] Farhat Leal RBC 4.12 106/ul Critically low 4.70-6.10 [facility] Comment on above: Performed By: #### C BC ####[facility] Vhouhohzdz6139 [place] [phone] Farhat Leal WBC 6.8 103/ul Normal 4.0-11.0 [facility] Comment on above: Performed By: #### C BC ####[facility] Rzfvcrisjx390[address] [place], [place] [address]DrSkylar Farhat Elvis PROF 14(COMP METB)on 023 Albumin [Mass/Vol] 2.8 g/dL Critically low 3.4-5.0 [facility] Comment on above: Performed By: #### C MP ####[facility] Dzxplljxvt7007 [place] [address]Dr. Farhat Leal Albumin/Globulin [Mass ratio] 0.9 {ratio} Normal [facility] Comment on above: Performed By: #### C MP ####[facility] Zqxpkhieyi6638 [place] [address]Dr. Farhat Leal ALP [Catalytic activity/Vol] 66 U/L Normal 46-116 [facility] Comment on above: Performed By: #### C MP ####[facility] Dfbnijamrb[address] [place], [place] [address]Dr. Farhat Leal ALT [Catalytic activity/Vol] 15 U/L Critically low 16-63 [facility] Comment on above: Performed By: #### C MP ####[facility] Czremvcouu19[address] [place], [place] [address]Dr. Farhat Leal Anion gap [Moles/Vol] 11.1 mmol/L Normal [facility] Comment on above: Performed By: #### C MP ####[facility] Tesjxveylv268[address] [place], [place] [address]Dr. Farhat Leal AST [Catalytic activity/Vol] 14 U/L Critically low 15-37 [facility] Comment on above: Performed By: #### C MP ####[facility] Dccharrufd[address] [place], [place] [address]Dr. Farhat Leal Bilirubin [Mass/Vol] 0.8 mg/dL Normal 0.2-1.0 [facility] Comment on above: Performed By: #### C MP ####[facility] Znigmifgjq664[address] [place], [place] [address]Dr. Farhat Leal Calcium [Mass/Vol] 8.9 mg/dL Normal 8.5-10.1 [facility] Comment on above: Performed By: #### C MP ####[facility] Enxouwuvko[address] [place], [place] [address]Dr. Farhat Leal Chloride [Moles/Vol] 101 mmol/L Normal 98-107 [facility] Comment on above: Performed By: #### C MP ####[facility] Xfqrfpmbij0270 [place] [address]Dr. Farhat Leal CO2 [Moles/Vol] 28.2 mmol/L Normal 21.0-32.0 [facility] Comment on above: Performed By: #### C MP ####[facility] Irjljxjdra3769 [place] [address]Dr. Farhta Elvis Creatinine [Mass/Vol] 1.23 mg/dL Normal 0.70-1.30 [facility] Comment on above: Performed By: #### C MP ####[facility] Mxtxybeztb9366 [place] [address]Dr. Farhat Elvis EGFR-AF [place]ER >60 Normal >=60 [facility] Comment on above: Performed By: #### C MP ####[facility] Afwrdfhaha2728 [place] [address]Dr. Madelynlorri Elvis EGFR-NON AF [place] 57 mL/min/1.73m2 Critically low >=60 [facility] Comment on above: Performed By: #### C MP ####[facility] Kqmdduuiul1055 [place] [address]Dr. Farhat Elvis Globulin (S) [Mass/Vol] 3.2 g/dL Normal [facility] Comment on above: Performed By: #### C MP ####[facility] Avuiowkcqw8347 [place] [address]Dr. Farhat Leal Glucose [Mass/Vol] 333 mg/dL Critically high 74-106 [facility] Comment on above: Performed By: #### C MP ####[facility] Jrcbqyuwwu4010 [place] [address]Dr. Madelynlorri Leal Potassium [Moles/Vol] 4.3 mmol/L Normal 3.5-5.1 [facility] Comment on above: Performed By: #### C MP ####[facility] Mifafpyfwb4763 [place] [address]Dr. Farhat Leal Protein [Mass/Vol] 6.0 g/dL Critically low 6.4-8.2 Th e [facility] Comment on above: Performed By: #### C MP ####[facility] Gabnwrmdqn6063 [place] [address]Dr. Farhat Leal Sodium [Moles/Vol] 136 mmol/L Normal 136-145 [facility] Comment on above: Performed By: #### C MP ####[facility] Eovvgeximf[address] [place], [place] [address]Dr. Farhat Leal Urea nitrogen [Mass/Vol] 58.0 mg/dL Critically high 7.0-18.0 [facility] Comment on above: Performed By: #### C MP ####[facility] Czrwdbdktj[address] [place], [place] [address]Dr. Farhat Leal Urea nitrogen/Creatinine [Mass ratio] 47.2 mg/mg Normal [facility] Comment on above: Performed By: #### C MP ####[facility] Xhylhegrtm380[address] [place], [place] [address]Dr. Farhat Leal PROTIMEon 05-13-2022 INR Coag (PPP) [Relative time] 3.51 {INR} Normal [facility] Comment on above: Performed By: #### P T ####[facility] Rwfzkzrfcz[address] [place], [place] [address]Dr. Farhat Leal INR GUIDELINES SEE BELOW Normal [facility] Comment on above: Result Comment: MALINA RED INR: 2.0 - 3.0 CONDITIONS NOT LISTED BELOW 2.5 - 3.5 FOR PROSTHETIC HEART VALVE REPLACEMENT 2.5 - 3.5 RECURRENT THROMBOSIS Performed By: #### P T ####[facility] Vilppheoah[address] [place], [place] [address]Dr. Farhat Leal PT Coag (PPP) [Time] 34.7 s Critically high 9.0-11.6 [facility] Comment on above: Performed By: #### P T ####[facility] Ojiswxvjjn[address] [place], [place] [address]Dr. Farhat Leal FK506 (TACROLIMUS) WHOLE BLO ODon 05-11-2022 Tacrolimus (FK506), Blood 14.4 ng/mL Normal 2.0-20.0 [facility] Comment on above: Result Comment: Trou gh (immediately following transplant) 15.0 . Trough (steady state, 2 weeks or more after transplant): 3.0 - 8.0 . Performed by LC-MS/MS technology. Performed By: #### F K506T ####[facility] Znwdedyple[address] [place], [place] [address]Dr. Farhat Leal CBC AUTO DIFFon 05-08-2022 BASO # 0.0 103/ul Normal 0.0-0.1 [facility] Comment on above: Performed By: #### C BC ####[facility] Zodgwfqgpl[address] [place], [place] [address]Dr. Farhat Leal Basophils/100 WBC (Bld) 0.5 % Normal 0.2-2.0 [facility] Comment on above: Performed By: #### C BC ####[facility] Vuoskixmxj324[address] [place], [place] [address]Dr. Farhat Leal EO # 0.2 103/ul Normal 0.0-0.7 [facility] Comment on above: Performed By: #### C BC ####[facility] Ephciiafty[address] [place], [place] [address]Dr. Farhat Leal Eosinophils/100 WBC (Bld) 2.9 % Normal 0.9-7.0 [facility] Comment on above: Performed By: #### C BC ####[facility] Fputlzqwkc[address] [place], [place] [address]Dr. Farhat Leal Erythrocyte distribution width (RBC) [Ratio] 16.0 % Critically high 11.0-15.0 [facility] Comment on above: Performed By: #### C BC ####[facility] Shvduujnrv[address] [place], [place] [address]Dr. Farhat Leal Hematocrit (Bld) [Volume fraction] 35.7 % Critically low 42.0-54.0 [facility] Comment on above: Performed By: #### C BC ####[facility] Xomnrpsrxv[address] [place], [place] [address]Dr. Farhat Leal Hemoglobin (Bld) [Mass/Vol] 11.9 g/dL Critically low 14.0-18.0 [facility] Comment on above: Performed By: #### C BC ####[facility] [address]fnmnegq[address] [place] [address]Dr. Farhat Leal IG # 0.03 10e3/ul Normal 0.00-0.03 [facility] Comment on above: Performed By: #### C BC ####[facility] Ulwgwrbobj3473 [place] [address]Dr. Farhat Leal IG % 0.5 % Normal 0.0-0.5 [facility] Comment on above: Performed By: #### C BC ####[facility] Cvdlhfnnmc99[address] [place] [address]Dr. Farhat Leal LYMPH # 2.4 103/ul Normal 1.2-3.8 [facility] Comment on above: Performed By: #### C BC ####[facility] Irwvmzadlx0924 [place] [address]Dr. Farhat Leal Lymphocytes/100 WBC (Bld) 37.8 % Normal 20.5-60.0 [facility] Comment on above: Performed By: #### C BC ####[facility] Ncepxsdsaq3952 [place] [address]Dr. Farhat Leal MANUAL DIFF REQ NO Normal [facility] Comment on above: Performed By: #### C BC ####[facility] Ehjbergrye88[address] [place] [address]Dr. Farhat Leal MCH (RBC) [Entitic mass] 30.4 pg Normal 25.9-34.0 [facility] Comment on above: Performed By: #### C BC ####[facility] Yyxssprfpk6910 [place] [phone]. Farhat Leal MCHC (RBC) [Mass/Vol] 33.3 g/dL Normal 29.9-35.2 [facility] Comment on above: Performed By: #### C BC ####[facility] Psqmumaxuh4959 [place] [address]Dr. Farhat Leal MCV (RBC) [Entitic vol] 91.1 fL Normal 80.0-94.0 [facility] Comment on above: Performed By: #### C BC ####[facility] Aatzcgjyfr5812 [place] [phone]. Farhat Leal MONO # 0.7 103/ul Normal 0.3-0.8 [facility] Comment on above: Performed By: #### C BC ####[facility] Gabbqyzrju4296 [place] [phone]. Farhat Leal Monocytes/100 WBC (Bld) 11.1 % Normal 1.7-12.0 [facility] Comment on above: Performed By: #### C BC ####[facility] Dapvglzvrp8877 [place] [phone]. Farhat Leal NEUT # 2.9 103/ul Normal 1.4-6.5 [facility] Comment on above: Performed By: #### C BC ####[facility] Cuwypfkfck3665 [place] [phone]. Farhat Leal Neutrophils/100 WBC (Bld) 47.2 % Normal 43.0-75.0 [facility] Comment on above: Performed By: #### C BC ####[facility] Bpgzgmhnkk9781 [place] [phone]. Farhat Leal Platelet mean volume (Bld) [Entitic vol] 11.0 fL Normal 9.5-13.5 [facility] Comment on above: Performed By: #### C BC ####[facility] Dvxfhlpzro1715 [place] [phone]. Farhat Leal PLT 191 103/ul Normal 150-450 [facility] Comment on above: Performed By: #### C BC ####[facility] Fwsdcpaist0290 [place] [phone]. Farhat Leal RBC 3.92 106/ul Critically low 4.70-6.10 [facility] Comment on above: Performed By: #### C BC ####[facility] Rxmvneykvv3718 [place] [phone]. Farhat Leal WBC 6.2 103/ul Normal 4.0-11.0 [facility] Comment on above: Performed By: #### C BC ####[facility] Emjaympswz1274 [place] [address]Dr. Farhat Leal MAGNESIUMon 05-08-2022 Magnesium [Mass/Vol] 1.9 mg/dL Normal 1.8-2.4 [facility] Comment on above: Performed By: #### P HOS, MG ####[facility] Tsdepqwkfm9050 [place] [address]Dr. Farhat Leal PHOSPHORUSon 05-08-2022 Phosphate [Mass/Vol] 4.5 mg/dL Normal 2.6-4.7 [facility] Comment on above: Performed By: #### P HOS, MG ####[facility] Iaeywnkmcs6393 [place] [address]Dr. Farhat Leal PROF 14(COMP METB)on 023 Albumin [Mass/Vol] 2.9 g/dL Critically low 3.4-5.0 [facility] Comment on above: Performed By: #### C MP ####[facility] Lfjyysxwxb[address] [place], [place] [address]Dr. Farhat Leal Albumin/Globulin [Mass ratio] 0.9 {ratio} Normal [facility] Comment on above: Performed By: #### C MP ####[facility] Egjfnraspb[address] [place], [place] [address]Dr. Farhat Leal ALP [Catalytic activity/Vol] 70 U/L Normal 46-116 [facility] Comment on above: Performed By: #### C MP ####[facility] Fomavdnjgz[address] [place], [place] [address]Dr. Farhat Leal ALT [Catalytic activity/Vol] 13 U/L Critically low 16-63 [facility] Comment on above: Performed By: #### C MP ####[facility] Ooryejrgas[address] [place], [place] [address]Dr. Farhat Leal Anion gap [Moles/Vol] 14.6 mmol/L Normal [facility] Comment on above: Performed By: #### C MP ####[facility] Htotyyrsae96[address] [place], [place] [address]Dr. Farhat Leal AST [Catalytic activity/Vol] 17 U/L Normal 15-37 [facility] Comment on above: Performed By: #### C MP ####[facility] Bcfruztlsp0498 [place] [address]Dr. Farhat Leal Bilirubin [Mass/Vol] 0.8 mg/dL Normal 0.2-1.0 [facility] Comment on above: Performed By: #### C MP ####[facility] Sardtoiwvk6684 [place] [address]Dr. Farhat Leal Calcium [Mass/Vol] 8.9 mg/dL Normal 8.5-10.1 [facility] Comment on above: Performed By: #### C MP ####[facility] Dxzoiktveq01[address] [place], [place] [address]Dr. Farhat Leal Chloride [Moles/Vol] 102 mmol/L Normal 98-107 [facility] Comment on above: Performed By: #### C MP ####[facility] Gbzbuvdjky[address] [place], [place] [address]Dr. Farhat Elvis CO2 [Moles/Vol] 22.9 mmol/L Normal 21.0-32.0 [facility] Comment on above: Performed By: #### C MP ####[facility] Kmgfdemxbd[address] [place], [place] [address]Dr. Farhat Elvis Creatinine [Mass/Vol] 1.20 mg/dL Normal 0.70-1.30 [facility] Comment on above: Performed By: #### C MP ####[facility] Kmppaimfgi[address] [place], [place] [address]Dr. Farhat Elvis EGFR-AF [place]LANDER >60 Normal >=60 [facility] Comment on above: Performed By: #### C MP ####[facility] Wkhnqshlhy0485 [place] [phone]. Madelynlorri Elvis EGFR-NON AF [place]ER 59 mL/min/1.73m2 Critically low >=60 [facility] Comment on above: Performed By: #### C MP ####[facility] Hflszpwqca4727 [place] [phone]. Farhat Leal Globulin (S) [Mass/Vol] 3.1 g/dL Normal [facility] Comment on above: Performed By: #### C MP ####[facility] Zcvrluwqsh2858 [place] [phone]. Farhat Leal Glucose [Mass/Vol] 447 mg/dL Critically high 74-106 T [facility] Comment on above: Performed By: #### C MP ####[facility] Caaysdlzaq9595 [place] [phone]. Farhat Leal Potassium [Moles/Vol] 4.5 mmol/L Normal 3.5-5.1 [facility] Comment on above: Performed By: #### C MP ####[facility] Ibczybgsbx6129 [place] [address]Dr. Farhat Leal Protein [Mass/Vol] 6.0 g/dL Critically low 6.4-8.2 Th [facility] Comment on above: Performed By: #### C MP ####[facility] Wwwaganpck[address] [place], [place] [address]Dr. Farhat Leal Sodium [Moles/Vol] 135 mmol/L Critically low 136-145 Th [facility] Comment on above: Performed By: #### C MP ####[facility] Eaidzsrbgp20[address] [place], [place] [address]Dr. Farhat Leal Urea nitrogen [Mass/Vol] 52.0 mg/dL Critically high 7.0-18.0 [facility] Comment on above: Performed By: #### C MP ####[facility] Gzzguokcgf164[address] [place], [place] [address]Dr. Farhat Leal Urea nitrogen/Creatinine [Mass ratio] 43.3 mg/mg Normal [facility] Comment on above: Performed By: #### C MP ####[facility] Fhrhcvtoev1924 [place] [phone]. Farhat Leal PROTIMEon 05-06-2022 INR Coag (PPP) [Relative time] 2.25 {INR} Normal [facility] Comment on above: Performed By: #### P T ####[facility] Jtnthrtmoy[address] [place], [place] [address]Dr. Farhat Leal INR GUIDELINES SEE BELOW Normal [facility] Comment on above: Result Comment: MALINA RED INR: 2.0 - 3.0 CONDITIONS NOT LISTED BELOW 2.5 - 3.5 FOR PROSTHETIC HEART VALVE REPLACEMENT 2.5 - 3.5 RECURRENT THROMBOSIS Performed By: #### P T ####[facility] Nqzcoymnwn464[address] [place], [place] [address]Dr. Farhat Leal PT Coag (PPP) [Time] 22.8 s Critically high 9.0-11.6 [facility] Comment on above: Performed By: #### P T ####[facility] Cgkbthffng[address] [place], [place] [address]Dr. Farhat Leal FK506 (TACROLIMUS) WHOLE BLO ODon 05-04-2022 Tacrolimus (FK506), Blood 10.4 ng/mL Normal 2.0-20.0 [facility] Comment on above: Result Comment: Trou gh (immediately following transplant) 15.0 . Trough (steady state, 2 weeks or more after transplant): 3.0 - 8.0 . Performed by LC-MS/MS technology. Performed By: #### F K506T ####[facility] Imiklmeomm[address] [place], [place] [address]Dr. Farhat Leal CBC AUTO DIFFon 05-01-2022 BASO # 0.1 103/ul Normal 0.0-0.1 [facility] Comment on above: Performed By: #### C BC ####[facility] Zaghcvljrq9[address] [place], [place] [address]Dr. Farhat Leal Basophils/100 WBC (Bld) 0.7 % Normal 0.2-2.0 [facility] Comment on above: Performed By: #### C BC ####[facility] Pyhmieaair[address] [place], [place] [address]Dr. Farhat Leal EO # 0.2 103/ul Normal 0.0-0.7 [facility] Comment on above: Performed By: #### C BC ####[facility] Vudntavajk[address] [place], [place] [address]Dr. Farhat Leal Eosinophils/100 WBC (Bld) 3.2 % Normal 0.9-7.0 [facility] Comment on above: Performed By: #### C BC ####[facility] Ykbvvsusvg9310 [place] [address]Dr. Farhat Leal Erythrocyte distribution width (RBC) [Ratio] 16.4 % Critically high 11.0-15.0 [facility] Comment on above: Performed By: #### C BC ####[facility] Gmwexgndcf[address] [place], [place] [address]Dr. Farhat Leal Hematocrit (Bld) [Volume fraction] 35.1 % Critically low 42.0-54.0 [facility] Comment on above: Performed By: #### C BC ####[facility] Rweillynqh[address] [place], [place] [address]Dr. Farhat Leal Hemoglobin (Bld) [Mass/Vol] 11.6 g/dL Critically low 14.0-18.0 [facility] Comment on above: Performed By: #### C BC ####[facility] Wtvqgnkdtz324[address] [place], [place] [address]Dr. Farhat Leal IG # 0.03 10e3/ul Normal 0.00-0.03 [facility] Comment on above: Performed By: #### C BC ####[facility] Rwzibxnale[address] [place], [place] [address]Dr. Farhat Leal IG % 0.4 % Normal 0.0-0.5 [facility] Comment on above: Performed By: #### C BC ####[facility] Taaopawqro[address] [place], [place] [address]Dr. Farhat Leal LYMPH # 2.4 103/ul Normal 1.2-3.8 [facility] Comment on above: Performed By: #### C BC ####[facility] Niasjfysdd[address] [place], [place] [address]Dr. Farhat Leal Lymphocytes/100 WBC (Bld) 35.1 % Normal 20.5-60.0 [facility] Comment on above: Performed By: #### C BC ####[facility] Olyefvqyrw7[address] [place], [place] [address]Dr. Farhat Leal MANUAL DIFF REQ NO Normal [facility] Comment on above: Performed By: #### C BC ####[facility] Dgsjqkpgef9043 [place] [phone]. Farhat Elvis MCH (RBC) [Entitic mass] 29.4 pg Normal 25.9-34.0 [facility] Comment on above: Performed By: #### C BC ####[facility] Hwhzlxhbkl1833 [place] [phone]. Farhat Elvis MCHC (RBC) [Mass/Vol] 33.0 g/dL Normal 29.9-35.2 [facility] Comment on above: Performed By: #### C BC ####[facility] Evapptaeqx5911 [place] [phone]. Madelynlorri Leal MCV (RBC) [Entitic vol] 88.9 fL Normal 80.0-94.0 [facility] Comment on above: Performed By: #### C BC ####[facility] Ixhlffdsvc[address] [place], [place] [address]Dr. Farhat Leal MONO # 0.7 103/ul Normal 0.3-0.8 [facility] Comment on above: Performed By: #### C BC ####[facility] Yxfagokcbf8420[address] [place], [place] [address]Dr. Farhat Leal Monocytes/100 WBC (Bld) 9.6 % Normal 1.7-12.0 [facility] Comment on above: Performed By: #### C BC ####[facility] Vapyxvfjqv60[address] [place], [place] [address]Dr. Farhat Leal NEUT # 3.5 103/ul Normal 1.4-6.5 [facility] Comment on above: Performed By: #### C BC ####[facility] Tzlxhdaisg[address] [place], [place] [address]Dr. Farhat Leal Neutrophils/100 WBC (Bld) 51.0 % Normal 43.0-75.0 [facility] Comment on above: Performed By: #### C BC ####[facility] Kfxozqukke[address] [place], [place] [address]Dr. Farhat Leal Platelet mean volume (Bld) [Entitic vol] 10.3 fL Normal 9.5-13.5 [facility] Comment on above: Performed By: #### C BC ####[facility] Egvosfyirg7051 [place] [phone]. Farhat Elvis PLT 184 103/ul Normal 150-450 [facility] Comment on above: Performed By: #### C BC ####[facility] Shndzpkpcs3013 [place] [phone]. Madelynlorri Leal RBC 3.95 106/ul Critically low 4.70-6.10 [facility] Comment on above: Performed By: #### C BC ####[facility] Kcossorexk0395 [place] [phone]. Madelynlorri Elvis WBC 7.0 103/ul Normal 4.0-11.0 [facility] Comment on above: Performed By: #### C BC ####[facility] Woqgsfixls6602 [place] [address]Dr. Farhat Leal PROF 14(COMP METB)on 023 Albumin [Mass/Vol] 2.6 g/dL Critically low 3.4-5.0 [facility] Comment on above: Performed By: #### C MP ####[facility] Iherkdvjuk[address] [place], [place] [address]Dr. Farhat Leal Albumin/Globulin [Mass ratio] 0.9 {ratio} Normal [facility] Comment on above: Performed By: #### C MP ####[facility] Pqekstqvlz7719 [place] [address]Dr. Farhat Leal ALP [Catalytic activity/Vol] 53 U/L Normal 46-116 [facility] Comment on above: Performed By: #### C MP ####[facility] Fkmsslqlwy4067 [place] [address]Dr. Farhat Leal ALT [Catalytic activity/Vol] 17 U/L Normal 16-63 [facility] Comment on above: Performed By: #### C MP ####[facility] Fxxgelhxwc1265 [place] [address]Dr. Farhat Leal Anion gap [Moles/Vol] 10.0 mmol/L Normal [facility] Comment on above: Performed By: #### C MP ####[facility] Kahzbauauw7318 [place] [phone]. Farhat Leal AST [Catalytic activity/Vol] 19 U/L Normal 15-37 [facility] Comment on above: Performed By: #### C MP ####[facility] Qmtklmchxu7134 [place] [phone]. Farhat Leal Bilirubin [Mass/Vol] 0.5 mg/dL Normal 0.2-1.0 [facility] Comment on above: Performed By: #### C MP ####[facility] Jrgxbmworg[address] [place], [place] [address]Dr. Farhat Leal Calcium [Mass/Vol] 8.4 mg/dL Critically low 8.5-10.1 Th e [facility] Comment on above: Performed By: #### C MP ####[facility] Uvkuvxvprw[address] [place], [place] [address]Dr. Farhat Leal Chloride [Moles/Vol] 108 mmol/L Critically high 98-107 [facility] Comment on above: Performed By: #### C MP ####[facility] Omtqqgugcd14[address] [place], [place] [address]Dr. aFrhat Leal CO2 [Moles/Vol] 26.9 mmol/L Normal 21.0-32.0 [facility] Comment on above: Performed By: #### C MP ####[facility] Meejoppmyt9[address] [place], [place] [address]Dr. Farhat Leal Creatinine [Mass/Vol] 1.20 mg/dL Normal 0.70-1.30 [facility] Comment on above: Performed By: #### C MP ####[facility] Qukezlalgj2994 [place] [phone]. Farhat Elvis EGFR-AF [place]ER >60 Normal >=60 [facility] Comment on above: Performed By: #### C MP ####[facility] Zjssspcoal[address] [place], [place] [address]Dr. Farhat Elvis EGFR-NON AF [place] 59 mL/min/1.73m2 Critically low >=60 [facility] Comment on above: Performed By: #### C MP ####[facility] Ocnvyhlvhh5464 [place] [phone]. Farhat Leal Globulin (S) [Mass/Vol] 3.0 g/dL Normal [facility] Comment on above: Performed By: #### C MP ####[facility] Jtkpsqvnpb3882 [place] [phone]. Farhat Leal Glucose [Mass/Vol] 213 mg/dL Critically high 74-106 [facility] Comment on above: Performed By: #### C MP ####[facility] Ijbcfjvcbv8146 [place] [phone]. Farhat Leal Potassium [Moles/Vol] 3.9 mmol/L Normal 3.5-5.1 [facility] Comment on above: Performed By: #### C MP ####[facility] Mxnkkoovbi8586 [place] [address]Dr. Farhat Leal Protein [Mass/Vol] 5.6 g/dL Critically low 6.4-8.2 Th [facility] Comment on above: Performed By: #### C MP ####[facility] Mjnfnfxhse5594 [place] [address]Dr. Farhat Leal Sodium [Moles/Vol] 141 mmol/L Normal 136-145 [facility] Comment on above: Performed By: #### C MP ####[facility] Urqgebafas8363 [place] [phone]. Farhat Leal Urea nitrogen [Mass/Vol] 61.0 mg/dL Critically high 7.0-18.0 [facility] Comment on above: Performed By: #### C MP ####[facility] Ppolqwiipk9571 [place] [address]Dr. Farhat Lael Urea nitrogen/Creatinine [Mass ratio] 50.8 mg/mg Normal [facility] Comment on above: Performed By: #### C MP ####[facility] Pgdlxprdbk[address] [place], [place] [address]Dr. Farhat Leal FK506 (TACROLIMUS) WHOLE BLO ODon 04-27-2022 Tacrolimus (FK506), Blood 16.5 ng/mL Normal 2.0-20.0 [facility] Comment on above: Result Comment: Trou gh (immediately following transplant) 15.0 . Trough (steady state, 2 weeks or more after transplant): 3.0 - 8.0 . Performed by LC-MS/MS technology. Performed By: #### F K506T ####[facility] Dllbuoslse[address] [place], [place] [address]Dr. Farhat Leal CBC AUTO DIFFon 04-24-2022 BASO # 0.0 103/ul Normal 0.0-0.1 [facility] Comment on above: Performed By: #### C BC ####[facility] Anajhbbzgv[address] [place], [place] [address]Dr. Farhat Leal Basophils/100 WBC (Bld) 0.5 % Normal 0.2-2.0 [facility] Comment on above: Performed By: #### C BC ####[facility] Qbsuwxbkgf287[address] [place], [place] [address]Dr. Farhat Leal EO # 0.2 103/ul Normal 0.0-0.7 [facility] Comment on above: Performed By: #### C BC ####[facility] Zowwdirfvd[address] [place], [place] [address]Dr. Farhat Leal Eosinophils/100 WBC (Bld) 3.1 % Normal 0.9-7.0 [facility] Comment on above: Performed By: #### C BC ####[facility] Glutsvtxcw[address] [place], [place] [address]Dr. Farhat Leal Erythrocyte distribution width (RBC) [Ratio] 16.3 % Critically high 11.0-15.0 [facility] Comment on above: Performed By: #### C BC ####[facility] Xtuaziopld8[address] [place], [place] [address]Dr. Farhat Leal Hematocrit (Bld) [Volume fraction] 34.0 % Critically low 42.0-54.0 [facility] Comment on above: Performed By: #### C BC ####[facility] Sjxhecyssm7[address] [place], [place] [address]Dr. Farhat Leal Hemoglobin (Bld) [Mass/Vol] 11.6 g/dL Critically low 14.0-18.0 [facility] Comment on above: Performed By: #### C BC ####[facility] Jtavsptcmv4850 [place] [id number]. Madelynlorri Elvis IG # 0.02 10e3/ul Normal 0.00-0.03 [facility] Comment on above: Performed By: #### C BC ####[facility] Cetbtrnprr[address] [place] [id number]. Farhat Leal IG % 0.4 % Normal 0.0-0.5 [facility] Comment on above: Performed By: #### C BC ####[facility] Qmiuadzbyq[address] [place] [address]Dr. Farhat Leal LYMPH # 2.2 103/ul Normal 1.2-3.8 [facility] Comment on above: Performed By: #### C BC ####[facility] Dhsosgfvqd4[address] [place] [address]Dr. Farhat Leal Lymphocytes/100 WBC (Bld) 38.8 % Normal 20.5-60.0 [facility] Comment on above: Performed By: #### C BC ####[facility] Mxntqfhjfo[address] [place] [address]DrSkylar Leal MANUAL DIFF REQ NO Normal [facility] Comment on above: Performed By: #### C BC ####[facility] Rzawoqzxqn5[address] [place] [id number]. Farhat Leal MCH (RBC) [Entitic mass] 30.1 pg Normal 25.9-34.0 [facility] Comment on above: Performed By: #### C BC ####[facility] Vyqmgakxcx4405 [place] [id number]. Madelynlorri Leal MCHC (RBC) [Mass/Vol] 34.1 g/dL Normal 29.9-35.2 [facility] Comment on above: Performed By: #### C BC ####[facility] Bwrqcrvoqw47[address] [place] [id number]. Farhat Leal MCV (RBC) [Entitic vol] 88.1 fL Normal 80.0-94.0 [facility] Comment on above: Performed By: #### C BC ####[facility] Omdwlokahi4539 [place] [id number]. Farhat Leal MONO # 0.6 103/ul Normal 0.3-0.8 [facility] Comment on above: Performed By: #### C BC ####[facility] Utbjkzzdad8040 [place] [id number]. Farhat Leal Monocytes/100 WBC (Bld) 10.8 % Normal 1.7-12.0 [facility] Comment on above: Performed By: #### C BC ####[facility] Ytkmhdgmkc95[address] [place] [id number]. Farhat Leal NEUT # 2.6 103/ul Normal 1.4-6.5 [facility] Comment on above: Performed By: #### C BC ####[facility] Pciegatywk4855 [place] [id number]. Farhat Leal Neutrophils/100 WBC (Bld) 46.4 % Normal 43.0-75.0 [facility] Comment on above: Performed By: #### C BC ####[facility] Uuaxkymoql3485 [place] [id number]. Farhat Leal Platelet mean volume (Bld) [Entitic vol] 10.9 fL Normal 9.5-13.5 [facility] Comment on above: Performed By: #### C BC ####[facility] Gsomtsxaml8816 [place] [id number]. Farhat Leal PLT 159 103/ul Normal 150-450 [facility] Comment on above: Performed By: #### C BC ####[facility] Lixicelhcb3266 [place] [id number]. Farhat Leal RBC 3.86 106/ul Critically low 4.70-6.10 [facility] Comment on above: Performed By: #### C BC ####[facility] Vlwjhhiotr2144 [place] [id number]. Farhat Leal WBC 5.6 103/ul Normal 4.0-11.0 [facility] Comment on above: Performed By: #### C BC ####[facility] Omrdelelqa08[address] [place] [address]Dr. Farhat Leal PROTIMEon 04-24-2022 INR Coag (PPP) [Relative time] 3.23 {INR} Normal [facility] Comment on above: Performed By: #### P T ####[facility] Igqhkdtgsy5064 [place] [address]Dr. Farhat Leal INR GUIDELINES SEE BELOW Normal [facility] Comment on above: Result Comment: MALINA RED INR: 2.0 - 3.0 CONDITIONS NOT LISTED BELOW 2.5 - 3.5 FOR PROSTHETIC HEART VALVE REPLACEMENT 2.5 - 3.5 RECURRENT THROMBOSIS Performed By: #### P T ####[facility] Pdxsqgrvlg[address] [place], [place] [address]Dr. Farhat Leal PT Coag (PPP) [Time] 32.0 s Critically high 9.0-11.6 [facility] Comment on above: Performed By: #### P T ####[facility] Mmpdkujzjq[address] [place], [place] [address]Dr. Farhat Leal FK506 (TACROLIMUS) WHOLE BLO ODon 04-20-2022 Tacrolimus (FK506), Blood 13.9 ng/mL Normal 2.0-20.0 [facility] Comment on above: Result Comment: Trou gh (immediately following transplant) 15.0 . Trough (steady state, 2 weeks or more after transplant): 3.0 - 8.0 . Performed by LC-MS/MS technology. Performed By: #### F K506T ####[facility] Cyjknqncve[address] [place], [place] [address]Dr. Farhat Leal CBC AUTO DIFFon 04-17-2022 BASO # 0.0 103/ul Normal 0.0-0.1 [facility] Comment on above: Performed By: #### C BC ####[facility] [address] [place], [place] [address]DrSkylar Leal Basophils/100 WBC (Bld) 0.4 % Normal 0.2-2.0 [facility] Comment on above: Performed By: #### C BC ####[facility] [address] [place], [place] [address]Dr. Farhat Leal EO # 0.2 103/ul Normal 0.0-0.7 [facility] Comment on above: Performed By: #### C BC ####[facility] Lxttpnsrfg7637 [place] [address]Dr. Farhat Leal Eosinophils/100 WBC (Bld) 2.8 % Normal 0.9-7.0 [facility] Comment on above: Performed By: #### C BC ####[facility] Acbbuwsutq[address] [place], [place] [address]Dr. Farhat Leal Erythrocyte distribution width (RBC) [Ratio] 16.1 % Critically high 11.0-15.0 [facility] Comment on above: Performed By: #### C BC ####[facility] Yrdxuwxtge2704 [place] [address]Dr. Farhat Leal Hematocrit (Bld) [Volume fraction] 35.7 % Critically low 42.0-54.0 [facility] Comment on above: Performed By: #### C BC ####[facility] Oagbfikoor[address] [place], [place] [address]Dr. Farhat Leal Hemoglobin (Bld) [Mass/Vol] 12.2 g/dL Critically low 14.0-18.0 [facility] Comment on above: Performed By: #### C BC ####[facility] Tqttbalkjx[address] [place], [place] [address]Dr. Farhat Leal IG # 0.03 10e3/ul Normal 0.00-0.03 [facility] Comment on above: Performed By: #### C BC ####[facility] Hehjpfgtxk[address] [place], [place] [address]Dr. Farhat Leal IG % 0.4 % Normal 0.0-0.5 [facility] Comment on above: Performed By: #### C BC ####[facility] Ibwgicyeaf[address] [place], [place] [address]Dr. Farhat Leal LYMPH # 2.4 103/ul Normal 1.2-3.8 [facility] Comment on above: Performed By: #### C BC ####[facility] Rufcjeaqez3606 [place] [id number]. Farhat Elvis Lymphocytes/100 WBC (Bld) 36.1 % Normal 20.5-60.0 [facility] Comment on above: Performed By: #### C BC ####[facility] Eulbpajlrw7953 [place] [address]Dr. Madelynlorri Leal MANUAL DIFF REQ NO Normal [facility] Comment on above: Performed By: #### C BC ####[facility] Tuklxdyhhx3665 [place] [address]Dr. Farhat Elvis MCH (RBC) [Entitic mass] 30.3 pg Normal 25.9-34.0 [facility] Comment on above: Performed By: #### C BC ####[facility] Xgubldwpyr[address] [place], [place] [address]Dr. Madelynlorri Leal MCHC (RBC) [Mass/Vol] 34.2 g/dL Normal 29.9-35.2 [facility] Comment on above: Performed By: #### C BC ####[facility] Dnuvlzcuot[address] [place], [place] [address]Dr. Madelynlorri Leal MCV (RBC) [Entitic vol] 88.6 fL Normal 80.0-94.0 [facility] Comment on above: Performed By: #### C BC ####[facility] Bekyckqpfg[address] [place], [place] [address]Dr. Farhat Leal MONO # 0.7 103/ul Normal 0.3-0.8 [facility] Comment on above: Performed By: #### C BC ####[facility] Bfqagxjbry[address] [place], [place] [address]Dr. Madelynlorri Leal Monocytes/100 WBC (Bld) 10.1 % Normal 1.7-12.0 [facility] Comment on above: Performed By: #### C BC ####[facility] Kwetpafycg[address] [place], [place] [address]Dr. Farhat Leal NEUT # 3.4 103/ul Normal 1.4-6.5 [facility] Comment on above: Performed By: #### C BC ####[facility] Ljhrsfzzld4064 [place] [address]Dr. Farhat Leal Neutrophils/100 WBC (Bld) 50.2 % Normal 43.0-75.0 [facility] Comment on above: Performed By: #### C BC ####[facility] Cbeajbtuhw6912 [place] [address]Dr. Farhat Leal Platelet mean volume (Bld) [Entitic vol] 11.8 fL Normal 9.5-13.5 [facility] Comment on above: Performed By: #### C BC ####[facility] Inxxtohhnm1333 [place] [address]Dr. Farhat Leal PLT 193 103/ul Normal 150-450 [facility] Comment on above: Performed By: #### C BC ####[facility] Oppbvvdnqg[address] [place], [place] [address]Dr. Farhat Leal RBC 4.03 106/ul Critically low 4.70-6.10 [facility] Comment on above: Performed By: #### C BC ####[facility] Thyithzpjg[address] [place], [place] [address]Dr. Farhat Leal WBC 6.8 103/ul Normal 4.0-11.0 [facility] Comment on above: Performed By: #### C BC ####[facility] Wbjkzioigq[address] [place], [place] [address]Dr. Farhat Leal PROF 14(COMP METB)on 023 Albumin [Mass/Vol] 2.9 g/dL Critically low 3.4-5.0 [facility] Comment on above: Performed By: #### C MP ####[facility] Mjzzqbprcg1528 [place] [address]Dr. Farhat Leal Albumin/Globulin [Mass ratio] 0.9 {ratio} Normal [facility] Comment on above: Performed By: #### C MP ####[facility] Whlchkuvpm[address] [place], [place] [address]Dr. Farhat Leal ALP [Catalytic activity/Vol] 67 U/L Normal 46-116 [facility] Comment on above: Performed By: #### C MP ####[facility] Yfcaahgmgk8302 [place] [address]Dr. Fahrat Leal ALT [Catalytic activity/Vol] 15 U/L Critically low 16-63 [facility] Comment on above: Performed By: #### C MP ####[facility] Rmwchdaiog7395 [place] [address]Dr. Farhat Leal Anion gap [Moles/Vol] 10.8 mmol/L Normal Th e [facility] Comment on above: Performed By: #### C MP ####[facility] Nifosyvnpd[address] [place], [place] [address]Dr. Farhat Leal AST [Catalytic activity/Vol] 23 U/L Normal 15-37 [facility] Comment on above: Performed By: #### C MP ####[facility] Dctzfscwbh64[address] [place], [place] [address]Dr. Farhat Leal Bilirubin [Mass/Vol] 0.6 mg/dL Normal 0.2-1.0 [facility] Comment on above: Performed By: #### C MP ####[facility] Lgdzytlrxg[address] [place], [place] [address]Dr. Farhat Leal Calcium [Mass/Vol] 8.7 mg/dL Normal 8.5-10.1 [facility] Comment on above: Performed By: #### C MP ####[facility] Wdvphtwuvi[address] [place], [place] [address]Dr. Farhat Leal Chloride [Moles/Vol] 105 mmol/L Normal 98-107 [facility] Comment on above: Performed By: #### C MP ####[facility] Memjgmopou08[address] [place], [place] [address]Dr. Farhat Leal CO2 [Moles/Vol] 29.5 mmol/L Normal 21.0-32.0 [facility] Comment on above: Performed By: #### C MP ####[facility] Zxpxacclbe20[address] [place], [place] [address]Dr. Farhat Leal Creatinine [Mass/Vol] 1.37 mg/dL Critically high 0.70-1.30 [facility] Comment on above: Performed By: #### C MP ####[facility] [address]zlqpxy[address] [place], [place] [address]Dr. Farhat Elvis EGFR-AF [place]ER >60 Normal >=60 [facility] Comment on above: Performed By: #### C MP ####[facility] Rdbfpmmksw8443 [place] [address]Dr. Farhat Elvis EGFR-NON AF [place]ER 50 mL/min/1.73m2 Critically low >=60 [facility] Comment on above: Performed By: #### C MP ####[facility] Jcvwzdpwqr0366 [place] [address]Dr. Farhat Elvis Globulin (S) [Mass/Vol] 3.1 g/dL Normal [facility] Comment on above: Performed By: #### C MP ####[facility] Stupxveime[address] [place], [place] [address]Dr. Madelynlorri Elvis Glucose [Mass/Vol] 203 mg/dL Critically high 74-106 [facility] Comment on above: Performed By: #### C MP ####[facility] Vhdxvqdjkh2527 [place] [address]Dr. Farhat Leal Potassium [Moles/Vol] 4.3 mmol/L Normal 3.5-5.1 [facility] Comment on above: Performed By: #### C MP ####[facility] Tbsbbxgeyu14[address] [place], [place] [address]Dr. Madelynlorri Elvis Protein [Mass/Vol] 6.0 g/dL Critically low 6.4-8.2 [facility] Comment on above: Performed By: #### C MP ####[facility] Jaxnpfchoe3[address] [place] [address]Dr. Farhat Elvis Sodium [Moles/Vol] 141 mmol/L Normal 136-145 [facility] Comment on above: Performed By: #### C MP ####[facility] Utusfvtxxn[address] [place], [place] [address]Dr. Farhat Leal Urea nitrogen [Mass/Vol] 65.0 mg/dL Critically high 7.0-18.0 [facility] Comment on above: Performed By: #### C MP ####[facility] Acqqaodsmr[address] [place], [place] [address]Dr. Farhat Leal Urea nitrogen/Creatinine [Mass ratio] 47.4 mg/mg Normal [facility] Comment on above: Performed By: #### C MP ####[facility] Qhadcggqdz7859 [place] [id number]. Farhat Leal PROTIMEon 04-15-2022 INR Coag (PPP) [Relative time] 3.88 {INR} Normal [facility] Comment on above: Performed By: #### P T ####[facility] Rxhcfraxhw7114 [place] [id number] Farhat Leal INR GUIDELINES SEE BELOW Normal [facility] Comment on above: Result Comment: MALINA RED INR: 2.0 - 3.0 CONDITIONS NOT LISTED BELOW 2.5 - 3.5 FOR PROSTHETIC HEART VALVE REPLACEMENT 2.5 - 3.5 RECURRENT THROMBOSIS Performed By: #### P T ####[facility] Uupkeotqpf8150 [place] [id number]. Farhat Leal PT Coag (PPP) [Time] 38.1 s Critically high 9.0-11.6 [facility] Comment on above: Performed By: #### P T ####[facility] Yuaqcwlusb8395 [place] [id number]. Farhat Leal Glucose Glucometer (dC) [M ass/Vol]Ordered By: Sadia Aguilar on 04-14-2022 Glucose [Mass/Vol] 162 mg/dL [facility] Comment on above: Random Glucose Refer ence Range is dependent on time and content of last meal. Glucose of more than 200 mg/dL in a nonstressed, ambulatory subject supports the diagnosis of Diabetes Mellitus. Glucose Poct Glucometerson 0 04-14-2022 Commemt1 Glu2: Cleaned Meter Normal [facility] Comment on above: Result Comment: PERF ORMED BY: [facility] [address] [place] [address] PATHOLOGIST TURNING [employer]ER TENDER JOSE F ELLIOTT M.D. Performed By: #### G LULS #### Point of Care testing , Glucose [Mass/Vol] 162 mg/dL Normal [facility] Comment on above: Result Comment: [facility] Glucose Reference Range is dependent on time and content of last meal. Glucose of more than 200 mg/dL in a nonstressed, ambulatory subject supports the diagnosis of Diabetes Mellitus. Performed By: #### G MADY #### Point of Care testing , No Panel InformationOrdered By: Sadia Aguilar on 04-14-2022 Bedside Glucose Comment Glu2: cleaned meter [facility] MAGNESIUMon 04-13-2022 Magnesium [Mass/Vol] 1.7 mg/dL Critically low 1.8-2.4 [facility] Comment on above: Performed By: #### M HENRI Manzo ####[facility] Ybcefaznqt17[address] [place] [address]DrSkylar Leal PHOSPHORUSon 04-13-2022 Phosphate [Mass/Vol] 4.8 mg/dL Critically high 2.6-4.7 [facility] Comment on above: Performed By: #### HENRI Winters ####[facility] Azpflyxaqu[address] [place], [place] [address]DrSkylar Leal PROTIMEon 04-13-2022 INR Coag (PPP) [Relative time] 3.16 {INR} Normal [facility] Comment on above: Performed By: #### P T ####[facility] Xelnkryrgh[address] [place], [place] [address]DrSkylar Leal INR GUIDELINES SEE BELOW Normal [facility] Comment on above: Result Comment: MALINA RED INR: 2.0 - 3.0 CONDITIONS NOT LISTED BELOW 2.5 - 3.5 FOR PROSTHETIC HEART VALVE REPLACEMENT 2.5 - 3.5 RECURRENT THROMBOSIS Performed By: #### P T ####[facility] Iqpuofmweu88[address] [place] [address]DrSkylar Leal PT Coag (PPP) [Time] 31.4 s Critically high 9.0-11.6 [facility] Comment on above: Performed By: #### P T ####[facility] Erhctiykzs[address] [place], [place] [address]DrSkylar Leal MAGNESIUMon 03-11-2022 Magnesium [Mass/Vol] 1.6 mg/dL Critically low 1.8-2.4 [facility] Comment on above: Performed By: #### M G, PHOS ####[facility] Zdlcgstcis47[address] [place], [place] [address]Dp. Farhat Leal PHOSPHORUSon 03-11-2022 Phosphate [Mass/Vol] 5.3 mg/dL Critically high 2.6-4.7 [facility] Comment on above: Performed By: #### M G, PHOS ####[facility] Fpcbnscslh4[address] [place], [place] [address]Fv. Farhat Leal CNOVon 02-26-2022 CNOV Office Visit (VASSMN ) ALEX ALMONTE Kate ([id number]) 1945 M TRN Date Time Provider Department 02/26/22 3:00 PM HINA PETERSON During your visit today, we recorded the following information about you: Temperature Pulse Blood pressure 96.6 degrees 75/minute 88/75 Hina Peterson MD, MD 02/26/2022 4:31 PM [facility] [place] DEPARTMENT OF VASCULAR SURGERY OUTPATIENT VISIT DATE [...] his postop visit. He has been in care home since then and has been recovering from his acute on chronic congestive heart failure. His wound has largely been healing without any issues and the maxwell and sutures were removed at the nursing facility. He comes here with a lateral wound eschar. He denies any fevers, chills, or any drainage. He is on anticoagulation. 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 [employer] [place] with lunch aspirin, enteric coated (ASPIRIN, ENTERIC COATED) 81 mg EC tablet Take 1 tablet by (more content not included)... Normal [facility] PROTIMEon 02-25-2022 INR Coag (PPP) [Relative time] 1.31 {INR} Normal [facility] Comment on above: Performed By: #### P T ####[facility] Xkgfwgjcrr[address] [place] [address]DrSkylar Leal INR GUIDELINES SEE BELOW Normal [facility] Comment on above: Result Comment: MALINA RED INR: 2.0 - 3.0 CONDITIONS NOT LISTED BELOW 2.5 - 3.5 FOR PROSTHETIC HEART VALVE REPLACEMENT 2.5 - 3.5 RECURRENT THROMBOSIS Performed By: #### P T ####[facility] [address] [place], [place] [address]FzSkylar Farhat Leal PT Coag (PPP) [Time] 13.7 s Critically high 9.0-11.6 [facility] Comment on above: Performed By: #### P T ####[facility] Nvprtflaah[address] [place], [place] [address]OoSkylar Farhat Elvis Hassan 02-19-2022 CNPN Telephone (TXCTGL) ALEX ALMONTE ([id number]) 1945 M TRN Date Time Provider Department 02/19/22 AUGUSTA MEDRANO TXCTGL During your visit today, we recorded the following information about you: Augusta Medrano RN 02/19/2022 11:16 AM Signed Alex Almonte's nursing facility, [facility], called regarding elevated tacrolimus level (23.9). Spoke [...] by mouth daily with lunch. 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 DIABETES UNCOMPL ADULT-UNCONTRLLED [[id number]] 02/24/2002 KIDNEY TRANSPLANT STATUS [Z94.0] 09/07/2003 PROPHYLACTIC IMMUNOTHERAPY [Z29.8] 07/30/2006 RESIDENTIAL STEROIDS [[id number]] 07/30/2006 VITAMIN D DEFICIENCY NOS [E55.9] 09/07/2008 [...] diabetes mellitus with diabetic peripher*11/29/2021 Atherosclerosis of unga artery of extremity w*11/29/2021 Malnutrition of moderate degree (HCC) [E44.0] 12/01/2021 Dermatitis associated with moisture [L30.8] 12/04/2021 Encounter Status:Closed by AUGUSTA MEDRANO on 02/19/22 [facility] Sonya 02-18-2022 CNPN Telephone (PODCCP) SUZYMINEJESÚS Love ([id number]) 1945 M TRN Date Time Provider Department 02/18/22 DEVON MOREIRA PODREAL During your visit today, we recorded the following information about you: Yumiko Denise 02/18/2022 3:16 PM Signed Reason for call: Mr. Almonte would like to request a sooner appointment with Dr. Peterson than 04/13/2022. Contact Name (if not the patient) Alex's nurse Home and cell number(Ask for Alex's nurse) [phone] Diagnosis 4 mo f/u wound check Best [...] by mouth daily with lunch. 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 DIABETES UNCOMPL ADULT-UNCONTRLLED [[id number]] 02/24/2002 KIDNEY TRANSPLANT STATUS [Z94.0] 09/07/2003 PROPHYLACTIC IMMUNOTHERAPY [Z29.8] 07/30/2006 MANAGER BATTERY STEROIDS [[id number]] 07/30/2006 VITAMIN D DEFICIENCY NOS [E55.9] 09/07/2008 [...] diabetes mellitus with diabetic peripher*11/29/2021 Atherosclerosis of unga artery of extremity w*11/29/2021 Malnutrition of moderate degree (HCC) [E44.0] 12/01/2021 Dermatitis associated with moisture [L30.8] 12/04/2021 Encounter Status:Closed by CHEASTY (more content not included)... Normal [facility] CNOVon 02-05-2022 CNOV Office Visit (TXCTGL ) ALEX ALMONTE ([id number]) 1945 M TRN Date Time Provider Department 02/05/22 8:20 AM [facility]IDNEY TXP [facility]INIC TXCTGL During your visit today, we recorded the following information about you: Temperature Pulse Blood pressure 96.7 degrees 79/minute 72/42 Asia Pike MD 02/05/2022 9:38 AM Signed [facility] [place] Transplant Follow up Portions of this note [...] and snacks patient declined. Indra scale at : 166.2 lbs per patient. Bed sore on coccyx causing discomfort. Being changed regularly at - reported to be smaller around but still as deep. Patient not very up to date with medications. Patient brought paperwork from [facility] with all medications being received. Patient unsure if they have been drawing labs regularly. Last Tac from 01/19: 12.9 and K 5.9. In need of current labs. Lab orders will be sent with patient and follows as below: Kidney and Pancreas Transplant Standing Lab Orders [id number] [place], [place] [address] February 05, 2022 Alex Almonte 1945 [id number] STANDARD TESTING: Diagnosis Codes: Z94.0 Kidney Transplant [...] AT YOUR LABORATORY FACILITY AND FAX TO [phone]. PLEASE CALL [phone]. Provider: Dr. Pike Current Outpatient Medications Medication [...] Take 237 (more content not included)... Normal [facility] PROTEIN CREATININE RATIOon 1 04-08-2021 Protein/Creatinine (U) [Mass ratio] 0.10 mg/mg <0.15 mg/mg [facility] PROTIMEon 02-05-2022 INR Coag (PPP) [Relative time] 2.90 {INR} Normal [facility] Comment on above: Performed By: #### P T ####[facility] [address] [place] [address] [address]DrSkylar Leal INR GUIDELINES SEE BELOW Normal [facility] Comment on above: Result Comment: MALINA RED INR: 2.0 - 3.0 CONDITIONS NOT LISTED BELOW 2.5 - 3.5 FOR PROSTHETIC HEART VALVE REPLACEMENT 2.5 - 3.5 RECURRENT THROMBOSIS Performed By: #### P T ####[facility] [address] [place] [address] [address]Dr. Farhat Leal PT Coag (PPP) [Time] 29.2 s Critically high 9.0-11.6 [facility] Comment on above: Performed By: #### P T ####[facility] [address] [place], [place] [address]RlSkylar Leal Prot/Creat Uron 02-05-2022 Protein/Creatinine (U) [Mass ratio] 0.10 mg/mg Normal <0.15 [facility] Comment on above: Order Comment: Speci men Type: URINE SPECIMENOrdering Facility: [facility] Address: [address] [place] [address] Result Comment: Adul t Proteinuria Categories: <0.15 mg/mg is considered normal to mildly increased 0.15 - 0.50 mg/mg is considered moderately increased >0.50 mg/mg is considered severely increased KDIGO. (2013). KDIGO 2012 Clinical Practice Guideline for the Evaluation and Management of Chronic Kidney Disease. Official Journal of the International Society of Nephrology, 3(1), 1-150. Performed By: #### 2 890-2 ####[facility] LABIA [id number] [place] [address] [place] Protein/Creatinine (U) [Mass ratio]on 02-05-2022 Creatinine (U) [Mass/Vol] 86.9 mg/dL 20.0 - 300.0 mg/dL [facility] Protein (U) [Mass/Vol] 9 mg/dL 0 - 20 mg/dL [facility] Creatinine (U) [Mass/Vol] 86.9 mg/dL Normal 20.0-300.0 [facility] Comment on above: Order Comment: Speci men Type: URINE SPECIMENOrdering Facility: [facility] [place] Address: [address] [id number] Performed By: #### 2 890-2 ####[facility] [id number] [place] [address] [place] Protein (U) [Mass/Vol] 9 mg/dL Normal 0-20 [facility] Comment on above: Order Comment: Speci men Type: URINE SPECIMENOrdering Facility: [facility] Address: [address] Performed By: #### 2 890-2 ####[facility] LABCLIA [id number] [place] [address] [place] URINALYSIS, DIPSTICK ONLYon 02-05-2022 Bilirubin Ql (U) Negative Normal Negative [facility] Comment on above: Order Comment: Speci men Type: URINE SPECIMEN Ordering Facility: [facility] Address: [address] [place] [address] Performed By: #### U A #### [facility] LAB CLIA [id number] [address] [place] [address] [place] Clarity (Unsp spec) Clear Normal Clear [facility] Comment on above: Order Comment: Speci men Type: URINE SPECIMEN Ordering Facility: [facility] Address: [address] [place] [address] Performed By: #### U A #### [facility] LAB CLIA [id number] [address] [place] [address] [place] Color (U) Yellow Normal Yellow [facility] Comment on above: Order Comment: Speci men Type: URINE SPECIMEN Ordering Facility: [facility] [place] Address: [address] [place] [address] Performed By: #### U A #### [facility] LAB CLIA [id number] [address] [place] [address] [place] Glucose Test strip (U) [Mass/Vol] 3+ Abnormal Trace, Negative [facility] Comment on above: Order Comment: Speci men Type: URINE SPECIMEN Ordering Facility: [facility] [place] Address: [address] [place], [place] [id number] Performed By: #### U A #### [facility] LAB CLIA [id number] [address] [place] [address] [place] Hemoglobin Ql (U) Negative Normal Negative, Trace [facility] Comment on above: Order Comment: Speci men Type: URINE SPECIMEN Ordering Facility: [facility] Address: [address] [address] Performed By: #### U A #### [facility] LAB CLIA [id number] [address] [place] [address] [place] Ketones Ql (U) Trace Normal Negative, Trace [facility] Comment on above: Order Comment: Speci men Type: URINE SPECIMEN Ordering Facility: [facility] [place] Address: [address] [address] Performed By: #### U A #### [facility] LAB CLIA [id number] [address] [place] [address] [place] Leukocyte esterase Test strip Ql (U) Negative Normal Negative, 25 Loraine/mL [facility] Comment on above: Order Comment: Speci men Type: URINE SPECIMEN Ordering Facility: [facility] [place] Address: [address] [place] [address] Performed By: #### U A #### [facility] LAB CLIA [id number] [address] [place] [address] [place] Nitrite Ql (U) Negative Normal Negative [facility] Comment on above: Order Comment: Speci men Type: URINE SPECIMEN Ordering Facility: [facility] [place] Address: [address] [place] [address] Performed By: #### U A #### [facility] LAB CLIA [id number] [address] [place] [address] [place] pH (U) 5.5 [pH] Normal 5.0-8.0 [facility] Comment on above: Order Comment: Speci men Type: URINE SPECIMEN Ordering Facility: [facility] Address: [address] [place] [address] Performed By: #### U A #### [facility] CLIA [id number] [address] [place] [address] [place] Protein (U) [Mass/Vol] Negative Normal Trace , Negative [facility] Comment on above: Order Comment: Speci men Type: URINE SPECIMEN Ordering Facility: [facility] Address: [address] [place] [address] Performed By: #### U A #### [facility] LAB CLIA [id number] [facility] [place] Specific gravity (U) [Rel density] 1.014 Normal 1.005-1.030 [facility] Comment on above: Order Comment: Speci men Type: URINE SPECIMEN Ordering Facility: [facility] [place] Address: [address] [place] [address] Performed By: #### U A #### [facility] LAB CLIA [id number] [address] [place] [address] [place] Urobilinogen Ql (U) 1+ Abnormal Negative [facility] Comment on above: Order Comment: Speci men Type: URINE SPECIMEN Ordering Facility: [facility] Address: [address] [place] [address] Performed By: #### U A #### [facility] LAB CLIA [id number] [address] [place] [address] [place] Bilirubin Ql (U) Negative Negative [facility] Clarity (Unsp spec) Clear Clear [facility] Color (U) Yellow Yellow [facility] Glucose Test strip (U) [Mass/Vol] 3+ Abnormal Trace, Negative [facility] Hemoglobin Ql (U) Negative Negative, Trace [facility] Ketones Ql (U) Trace Negative, Trace [facility] Leukocyte esterase Test strip Ql (U) Negative Negative, 25 Loraine/mL [facility] Nitrite Ql (U) Negative Negative [facility] pH (U) 5.5 [pH] 5.0 - 8.0 [facility] Protein (U) [Mass/Vol] Negative Trace , Negative [facility] Specific gravity (U) [Rel density] 1.014 1.005 - 1.030 [facility] Urobilinogen Ql (U) 1+ Abnormal Negative [facility] FK506 (TACROLIMUS) WHOLE BLO ODon 12-15-2022 Tacrolimus (FK506), Blood 11.1 ng/mL Normal 2.0-20.0 [facility] Comment on above: Result Comment: Trou gh (immediately following transplant) 15.0 . Trough (steady state, 2 weeks or more after transplant): 3.0 - 8.0 . Performed by LC-MS/MS technology. Performed By: #### F K506T ####[facility] [address] [address]Dr. Farhat Leal PHOSPHORUSon 01-26-2022 Phosphate [Mass/Vol] 4.1 mg/dL Normal 2.6-4.7 [facility] Comment on above: Performed By: #### C CARA, PHOS ####[facility] [address] [place], [place] [address]Dr. Farhat Leal PROF 14(COMP METB)on 022 Albumin [Mass/Vol] 2.1 g/dL Critically low 3.4-5.0 [facility] Comment on above: Performed By: #### C CARA, PHOS ####[facility] [address] [place], [place] [address]Dr. Farhat Leal Albumin/Globulin [Mass ratio] 0.6 {ratio} Normal [facility] Comment on above: Performed By: #### C CARA, PHOS ####[facility] [address] [place], [place] [address]Dr. Farhat Leal ALP [Catalytic activity/Vol] 89 U/L Normal 46-116 [facility] Comment on above: Performed By: #### C CARA, PHOS ####[facility] [address] [place], [place] [address]Dr. Farhat Leal ALT [Catalytic activity/Vol] 27 U/L Normal 16-63 [facility] Comment on above: Performed By: #### C CARA, PHOS ####[facility] [address] [place], [place] [address]Dr. Farhat Leal Anion gap [Moles/Vol] 12.3 mmol/L Normal [facility] Comment on above: Performed By: #### C CARA, PHOS ####[facility] [address] [id number]. Farhat Leal AST [Catalytic activity/Vol] 53 U/L Critically high 15-37 [facility] Comment on above: Performed By: #### C MP, PHOS ####[facility] [address] [id number]. Farhat Leal Bilirubin [Mass/Vol] 0.6 mg/dL Normal 0.2-1.0 [facility] Comment on above: Performed By: #### C MP, PHOS ####[facility] [address] [address]Dr. Farhat Leal Calcium [Mass/Vol] 8.0 mg/dL Critically low 8.5-10.1 Th e [facility] Comment on above: Performed By: #### C CARA, PHOS ####[facility] [address] [place], [place] [address]Dr. Farhat Leal Chloride [Moles/Vol] 97 mmol/L Critically low 98-107 [facility] Comment on above: Performed By: #### C CARA, PHOS ####[facility] [address] [place], [place] [address]Dr. Farhat Leal CO2 [Moles/Vol] 26.6 mmol/L Normal 21.0-32.0 [facility] Comment on above: Performed By: #### C CARA, PHOS ####[facility] R[address] [place], [place] [address]Dr. Farhat Leal Creatinine [Mass/Vol] 1.03 mg/dL Normal 0.70-1.30 [facility] Comment on above: Performed By: #### C CARA, PHOS ####[facility] [address] [address]Dr. Farhat Leal EGFR-AF [place] >60 Normal >=60 [facility] Comment on above: Performed By: #### C MP, PHOS ####[facility] [address] [address]Dr. Farhat Leal EGFR-NON AF [place] >60 Normal >=60 [facility] Comment on above: Performed By: #### C MP, PHOS ####[facility] [address] [address]Dr. Farhat Leal Globulin (S) [Mass/Vol] 3.7 g/dL Normal [facility] Comment on above: Performed By: #### C MP, PHOS ####[facility] [address] [address]Dr. Farhat Leal Glucose [Mass/Vol] 287 mg/dL Critically high 74-106 T [facility] Comment on above: Performed By: #### C MP, PHOS ####[facility] [address]cqcl[address] [place], [place] [address]Dr. Farhat Leal Potassium [Moles/Vol] 3.9 mmol/L Normal 3.5-5.1 [facility] Comment on above: Performed By: #### C CARA, PHOS ####[facility] [address] [place], [place] [address]Dr. Farhat Leal Protein [Mass/Vol] 5.8 g/dL Critically low 6.4-8.2 Th [facility] [place] [facility] Comment on above: Performed By: #### C CARA, PHOS ####[facility] [address] [place], [place] [address]Dr. Farhat Leal Sodium [Moles/Vol] 132 mmol/L Critically low 136-145 Th [facility] [place] [facility] Comment on above: Performed By: #### C MP, PHOS ####[facility] [address] [place], [place] [address]Dr. Farhat Leal Urea nitrogen [Mass/Vol] 23.0 mg/dL Critically high 7.0-18.0 [facility] Comment on above: Performed By: #### C MP, PHOS ####[facility] [address] [place], [place] [address]Dr. Farhat Leal Urea nitrogen/Creatinine [Mass ratio] 22.3 mg/mg Normal [facility] Comment on above: Performed By: #### C MP, PHOS ####[facility] [address] [place], [place] [address]Dr. Farhat Elvis FK506 (TACROLIMUS) WHOLE BLO ODon 12-07-2022 Tacrolimus (FK506), Blood 12.2 ng/mL Normal 2.0-20.0 [facility] Comment on above: Result Comment: Trou gh (immediately following transplant) 15.0 . Trough (steady state, 2 weeks or more after transplant): 3.0 - 8.0 . Performed by LC-MS/MS technology. Performed By: #### F K506T ####[facility] [address] [id number]. Farhat Leal ACID FAST SMEAR AND CXon Acid Fast Culture Negative Normal [facility] Comment on above: Result Comment: No a abdiel fast bacilli isolated after 6 weeks. Performed By: #### A FB ####[facility] [address] [phone]. Farhat Leal Acid Fast Smear Negative Normal [facility] Comment on above: Performed By: #### A FB ####[facility] [address] [address]Dr. Farhat Leal [employer] Specimen Processing Tissue Grinding Normal [facility] Comment on above: Performed By: #### A FB ####[facility] [address] [phone]. Farhat Hassan 01-20-2022 [place]RA[place] Telephone (KIMBERLY) ALEX ALMONTE ([id number]) 1945 M TRN Date Time Provider Department 01/20/22 VAN OLIVAREZ During your visit today, we recorded the following information about you: Van Olivarez APRN.DIAMANTE 01/20/2022 1:14 PM Signed Labs noted from yesterday. Pt is [facility], I spoke with the Nurse, the results has been addressed by Physician caring for pt. He had been placed on Chlor Con and this has been discontinued and hyperkalemia has been treated. Van Olivarez APRN.BINITROTOLUENE OPERATOR Allergies As of Date: 01/20/2022 Noted Allergy Reaction PYRIDOSTIGMINE BROMIDE 08/04/2021 8 - GI Upset Date Reviewed: 01/15/2022 Reviewed by: Raquel Tai APRN.BINITROTOLUENE OPERATOR - Fully Assessed Reason for Visit: Results [...] by mouth daily with lunch. 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 of unga artery of extremity w*11/29/2021 Malnutrition of moderate degree (HCC) [E44.0] 12/01/2021 Dermatitis associated with moisture [L30.8] 12/04/2021 Encounter Status:Closed by VAN OLIVAREZ on 01/20/22 Normal [facility] Orders Onlyon 01-20-2022 Orders Only [id number] Alex Almonte 1945 M Date Provider Department Center 01/20/2022 Fidelina8-SUSIE HERNANDES [facility] No family history on file Normal [facility] PROF 14(COMP METB)on 022 Albumin [Mass/Vol] 1.9 g/dL Critically low 3.4-5.0 Th [facility] [place] [facility] Comment on above: Performed By: #### C MP ####[facility] [address] [address]Dr. Farhat Leal Albumin/Globulin [Mass ratio] 0.5 {ratio} Normal [facility] Comment on above: Performed By: #### C MP ####[facility] [address] [address]Dr. Farhat Leal ALP [Catalytic activity/Vol] 78 U/L Normal 46-116 [facility] Comment on above: Performed By: #### C MP ####[facility] [address] [address]DrSkylar Leal ALT [Catalytic activity/Vol] 22 U/L Normal 16-63 [facility] Comment on above: Performed By: #### C MP ####[facility] [address] [address]Dr. Farhat Leal Anion gap [Moles/Vol] 8.0 mmol/L Normal [facility] Comment on above: Performed By: #### C MP ####[facility] [address] [place] [phone]. Farhat Leal AST [Catalytic activity/Vol] 92 U/L Critically high 15-37 [facility] Comment on above: Performed By: #### C MP ####[facility] [address] [phone]. Farhat Leal Bilirubin [Mass/Vol] 0.7 mg/dL Normal 0.2-1.0 [facility] Comment on above: Performed By: #### C MP ####[facility] [address] [place] [phone]. Farhat Leal Calcium [Mass/Vol] 7.8 mg/dL Critically low 8.5-10.1 Th e [facility] Comment on above: Performed By: #### C MP ####[facility] [address] [place], [place] [address]Dr. Farhat Leal Chloride [Moles/Vol] 99 mmol/L Normal 98-107 [facility] Comment on above: Performed By: #### C MP ####[facility] [address] [place], [place] [address]Dr. Farhat Leal CO2 [Moles/Vol] 30.9 mmol/L Normal 21.0-32.0 [facility] Comment on above: Performed By: #### C MP ####[facility] [address] [place], [place] [address]Dr. Farhat Leal Creatinine [Mass/Vol] 0.95 mg/dL Normal 0.70-1.30 [facility] Comment on above: Performed By: #### C MP ####[facility] [address] [phone]. Farhat Elvis EGFR-AF [place] >60 Normal >=60 [facility] Comment on above: Performed By: #### C MP ####[facility] [address] [place] [phone]. Farhat Elvis EGFR-NON AF [place] >60 Normal >=60 [facility] Comment on above: Performed By: #### C MP ####[facility] [address] [phone]. Farhat Leal Globulin (S) [Mass/Vol] 3.9 g/dL Normal [facility] Comment on above: Performed By: #### C MP ####[facility] [address]pcva[address] [phone]. Farhat Leal Glucose [Mass/Vol] 124 mg/dL Critically high 74-106 T [facility] Comment on above: Performed By: #### C MP ####[facility] [address]tm[address] [place] [address] [address]Dr. Farhat Leal Potassium [Moles/Vol] 5.9 mmol/L Critically high 3.5-5.1 [facility] Comment on above: Performed By: #### C MP ####[facility] [address] [place] [address]Dr. Farhat Leal Protein [Mass/Vol] 5.8 g/dL Critically low 6.4-8.2 Th [facility] [place] [facility] Comment on above: Performed By: #### C MP ####[facility] [address]py[address] [place] [address] [address]Dr. Farhat Leal Sodium [Moles/Vol] 132 mmol/L Critically low 136-145 Th [facility] [place] [facility] Comment on above: Performed By: #### C MP ####[facility] X[address] [place] [address]Dr. Farhat Leal Urea nitrogen [Mass/Vol] 18.0 mg/dL Normal 7.0-18.0 [facility] Comment on above: Performed By: #### C MP ####[facility] [address]tyhkl[address] [place] [address]Dr. Farhat Leal Urea nitrogen/Creatinine [Mass ratio] 18.9 mg/mg Normal [facility] Comment on above: Performed By: #### C MP ####[facility] [address] [place], [place] [address]Dr. Farhat Leal INR (POC)on 01-12-2022 INR Coag (PPP) [Relative time] 2.6 {INR} High 0.8 - 1.2 [facility] Internal Quality Check Acceptable Cl [facility] ACID FAST SMEAR AND CXon Acid Fast Culture Negative Normal The [facility] Comment on above: Result Comment: No a abdiel fast bacilli isolated after 6 weeks. Performed By: #### A FB ####[facility] [address] [place] [phone]. Farhat Leal Acid Fast Smear Negative Normal [facility] Comment on above: Performed By: #### A FB ####[facility] [address]we[address] [place], [place] [address]Dr. Farhat [employer] Specimen Processing Direct Inoculation [facility] Comment on above: Performed By: #### A FB ####[facility] Gr[address]qb[address] [place], [place] [address]Dr. Farhat Leal ACID FAST SMEAR AND CXon Acid Fast Culture Negative Normal [facility] Comment on above: Result Comment: No a abdiel fast bacilli isolated after 6 weeks. Performed By: #### A FB ####[facility] [address] [place], [place] [address]Dr. Farhat Leal Acid Fast Smear Negative Normal [facility] Comment on above: Performed By: #### A FB ####[facility] Wis[address] [place], [place] [address]Dr. Farhat Le[employer] Specimen Processing Tissue Grinding [facility] Comment on above: Performed By: #### A FB ####[facility] [address] [place], [place] [address]Dr. Farhat Leal FUNGAL CULTUREon 01-02-2022 Fungus (Mycology) Culture Final report Normal [facility] Comment on above: Performed By: #### C XFUN ####[facility] [address] [place], [place] [address]Dr. Farhat Leal Fungus Stain Final report Normal [facility] Comment on above: Performed By: #### C XFUN ####[facility] [address]in[address] [place], [place] [address]Dr. Farhat Leal Result 1 Comment Normal [facility] Comment on above: Result Comment: ANNI/ Calcofluor preparation: no fungus observed. Performed By: #### C XFUN ####[facility] [address] [place] [address]. Farhat Leal Result Comment: No y east or mold isolated after 4 weeks. FK506 (TACROLIMUS) WHOLE BLO ODon 12-31-2021 Tacrolimus (FK506), Blood 7.7 ng/mL Normal 2.0-20.0 [facility] Comment on above: Result Comment: Trou gh (immediately following transplant) 15.0 . Trough (steady state, 2 weeks or more after transplant): 3.0 - 8.0 . Performed by LC-MS/MS technology. Performed By: #### F K506T ####[facility] [address] [place] [address]. Farhat Leal HEMOGRAM AND PLATELon 2021 Hematocrit (Bld) [Volume fraction] 27.1 % Critically low 42.0-54.0 [facility] Comment on above: Performed By: #### H H ####[facility] [address] [place] [address]. Farhat Leal Hemoglobin (Bld) [Mass/Vol] 8.7 g/dL Critically low 14.0-18.0 [facility] Comment on above: Performed By: #### H H ####[facility] [address] [place] [address]. Farhat Leal MCH (RBC) [Entitic mass] 30.3 pg Normal 25.9-34.0 [facility] Comment on above: Performed By: #### H H ####[facility] S[address] [place] [address]. Farhat Leal MCHC (RBC) [Mass/Vol] 32.1 g/dL Normal 29.9-35.2 [facility] Comment on above: Performed By: #### H H ####[facility] Zyiakiatre[address] [place] [address]. Farhat Leal MCV (RBC) [Entitic vol] 94.4 fL Critically high 80.0-94.0 [facility] Comment on above: Performed By: #### H H ####[facility] Huxx[address] [place] [id number]. Farhat Leal PLT 355 103/ul Normal 150-450 [facility] Comment on above: Performed By: #### H H ####[facility] Nhxklvyf[address] [place] [address]Dr. Farhat Leal RBC 2.87 106/ul Critically low 4.70-6.10 [facility] Comment on above: Performed By: #### H H ####[facility] Xwwnvhluyp4[address] [place] [address]Dr. Farhat Leal WBC 6.0 103/ul Normal 4.0-11.0 [facility] Comment on above: Performed By: #### H H ####[facility] Zwnztofyqt264[address] [place] [address]Dr. Farhat Leal PHOSPHORUSon 12-29-2021 Phosphate [Mass/Vol] 2.5 mg/dL Critically low 2.6-4.7 [facility] Comment on above: Performed By: #### P HOS, CMP ####[facility] Bpmhprmesc[address] [place], [place] [address]Dr. Farhat Elvis PROF 14(COMP METB)on 022 Albumin [Mass/Vol] 1.7 g/dL Critically low 3.4-5.0 [facility] Comment on above: Performed By: #### P HOS, CMP ####[facility] Ctoqtbbqny4[address] [place] [address]Dr. Farhat Leal Albumin/Globulin [Mass ratio] 0.5 {ratio} Normal [facility] Comment on above: Performed By: #### P HOS, CMP ####[facility] Wlgiyxkcke[address] [place] [address]Dr. Farhat Leal ALP [Catalytic activity/Vol] 78 U/L Normal 46-116 [facility] Comment on above: Performed By: #### P HOS, CMP ####[facility] Kkzcajypgw04[address] [place] [address]Dr. Farhat Elvis ALT [Catalytic activity/Vol] 12 U/L Critically low 16-63 [facility] Comment on above: Performed By: #### P HOS, CMP ####[facility] Crwmdzkncw5[address] [place] [id number]. Farhat Leal Anion gap [Moles/Vol] 5.1 mmol/L Normal [facility] Comment on above: Performed By: #### P HOS, CMP ####[facility] Vddybbffwb1706 [place] [address]Dr. Farhat Leal AST [Catalytic activity/Vol] 22 U/L Normal 15-37 [facility] Comment on above: Performed By: #### P HOS, CMP ####[facility] Tlzmvipgwl[address] [place], [place] [address]Dr. Farhat Leal Bilirubin [Mass/Vol] 0.6 mg/dL Normal 0.2-1.0 [facility] Comment on above: Performed By: #### P HOS, CMP ####[facility] Jsepagxnyx40[address] [place], [place] [address]Dr. Farhat Leal Calcium [Mass/Vol] 8.1 mg/dL Critically low 8.5-10.1 [facility] Comment on above: Performed By: #### P HOS, CMP ####[facility] Zoospxuvcr[address] [place], [place] [address]Dr. Farhat Leal Chloride [Moles/Vol] 100 mmol/L Normal 98-107 [facility] Comment on above: Performed By: #### P HOS, CMP ####[facility] Ijrhfojewk[address] [place], [place] [address]Dr. Farhat Leal CO2 [Moles/Vol] 34.2 mmol/L Critically high 21.0-32.0 [facility] Comment on above: Performed By: #### P HOS, CMP ####[facility] Seticuadis[address] [place], [place] [address]Dr. Farhat Leal Creatinine [Mass/Vol] 0.92 mg/dL Normal 0.70-1.30 [facility] Comment on above: Performed By: #### P HOS, CMP ####[facility] Vrfrhfaqyq[address] [place], [place] [address]Dr. Farhat Leal EGFR-AF [place]ER >60 Normal >=60 [facility] Comment on above: Performed By: #### P HOS, CMP ####[facility] Ydapadoeke6535 [place] [phone]. Farhat Leal EGFR-NON AF [place]ER >60 Normal >=60 [facility] Comment on above: Performed By: #### P HOS, CMP ####[facility] Accfkizvzt8923 [place] [phone]. Farhat Leal Globulin (S) [Mass/Vol] 3.3 g/dL Normal [facility] Comment on above: Performed By: #### P HOS, CMP ####[facility] Nagsazelvd[address]66 [place] [address]Dr. Farhat Leal Glucose [Mass/Vol] 116 mg/dL Critically high 74-106 [facility] Comment on above: Performed By: #### P HOS, CMP ####[facility] Tmmwlhlqyn1264 [place] [address]Dr. Farhat Leal Potassium [Moles/Vol] 3.3 mmol/L Critically low 3.5-5.1 [facility] Comment on above: Performed By: #### P HOS, CMP ####[facility] Onsgsipnzq90[address] [place], [place] [address]Dr. Farhat Leal Protein [Mass/Vol] 5.0 g/dL Critically low 6.4-8.2 [facility] Comment on above: Performed By: #### P HOS, CMP ####[facility] Dskciwwarj9[address] [place], [place] [address]Dr. Farhat Leal Sodium [Moles/Vol] 136 mmol/L Normal 136-145 [facility] Comment on above: Performed By: #### P HOS, CMP ####[facility] Nvwttdzxws1009 [place] [address]Dr. Farhat Leal Urea nitrogen [Mass/Vol] 14.0 mg/dL Normal 7.0-18.0 [facility] Comment on above: Performed By: #### P HOS, CMP ####[facility] Stwcijpvwy[address] [place] [id number]. Farhat Leal Urea nitrogen/Creatinine [Mass ratio] 15.2 mg/mg Normal [facility] Comment on above: Performed By: #### P HOS, CMP ####[facility] Xrnuvapspj[address] [place], [place] [address]Dr. Farhat Leal PROTIMEon 12-29-2021 INR Coag (PPP) [Relative time] 1.26 {INR} Normal [facility] Comment on above: Performed By: #### P T ####[facility] Qumuzpxcfx[address] [place], [place] [address]Dr. Farhat Leal INR GUIDELINES SEE BELOW Normal [facility] Comment on above: Result Comment: MALINA RED INR: 2.0 - 3.0 CONDITIONS NOT LISTED BELOW 2.5 - 3.5 FOR PROSTHETIC HEART VALVE REPLACEMENT 2.5 - 3.5 RECURRENT THROMBOSIS Performed By: #### P T ####[facility] Exioevhwje[address] [place], [place] [address]Dr. Farhat Leal PT Coag (PPP) [Time] 13.4 s Critically high 9.0-11.6 [facility] Comment on above: Performed By: #### P T ####[facility] Hsqrfuhouj[address] [place], [place] [address]Dr. Farhat Leal XR MODIFIED BARIUM SWALLOWon 12-25-2021 XR MODIFIED BARIUM SWALLOW Normal [facility] FUNGAL CULTUREon 12-24-2021 Fungus (Mycology) Culture Final report Normal [facility] Comment on above: Performed By: #### C XFUN ####[facility] Gzowhlfavm[address] [place], [place] [address]Dr. Farhat Leal Fungus Stain Final report Normal [facility] Comment on above: Performed By: #### C XFUN ####[facility] Wfpgudzwbw[address] [place], [place] [address]Dr. Farhat Leal Result 1 Comment Normal [facility] Comment on above: Result Comment: ANNI/ Calcofluor preparation: no fungus observed. Performed By: #### C XFUN ####[facility] Umecrvzvos[address] [place], [place] [address]DrSkylar Leal Result Comment: No y east or mold isolated after 4 weeks. VANCOMYCIN TROUGHon 12-21-19 VANCOMYCIN TROUGH 14.4 ug/ml Normal 5.0-20.0 [facility] Comment on above: Performed By: #### V ANCT ####[facility] Dxykbvilfe[address] [place] [address]Dr. Farhat Leal CBC AUTO DIFFon 12-14-2021 BASO # 0.0 103/ul Normal 0.0-0.1 [facility] Comment on above: Performed By: #### C BC ####[facility] Qsnyvknqtx[address] [place], [place] [address]Dr. Farhat Elvis Basophils/100 WBC (Bld) 0.2 % Normal 0.2-2.0 [facility] Comment on above: Performed By: #### C BC ####[facility] Xbutaduvnu[address] [place], [place] [address]Dr. Farhat Leal EO # 0.2 103/ul Normal 0.0-0.7 [facility] Comment on above: Performed By: #### C BC ####[facility] Rkezgzbiyn[address] [place], [place] [address]Dr. Farhat Elvis Eosinophils/100 WBC (Bld) 2.1 % Normal 0.9-7.0 [facility] Comment on above: Performed By: #### C BC ####[facility] Hhdakhnfaf[address] [place], [place] [address]Dr. Farhat Leal Erythrocyte distribution width (RBC) [Ratio] 18.2 % Critically high 11.0-15.0 [facility] Comment on above: Performed By: #### C BC ####[facility] Oicvssmepv[address] [place], [place] [address]Dr. Farhat Leal Hematocrit (Bld) [Volume fraction] 25.8 % Critically low 42.0-54.0 [facility] Comment on above: Performed By: #### C BC ####[facility] Lpragmgsfd[address] [place], [place] [address]Dr. Farhat Leal Hemoglobin (Bld) [Mass/Vol] 8.0 g/dL Critically low 14.0-18.0 [facility] Comment on above: Performed By: #### C BC ####[facility] Mavaszmeax25[address] [place] [id number]. Farhat Leal IG # 0.08 10e3/ul Critically high 0.00-0.03 [facility] Comment on above: Performed By: #### C BC ####[facility] Pzzfitvpfx5411 [place] [address]Dr. Farhat Leal IG % 0.7 % Critically high 0.0-0.5 [facility] Comment on above: Performed By: #### C BC ####[facility] Yqnueknhvi4274 [place] [address]Dr. Farhat Elvis LYMPH # 0.9 103/ul Critically low 1.2-3.8 [facility] Comment on above: Performed By: #### C BC ####[facility] Nohbfdgcby9078 [place] [address]Dr. Farhat Elvis Lymphocytes/100 WBC (Bld) 8.7 % Critically low 20.5-60.0 [facility] Comment on above: Performed By: #### C BC ####[facility] Wfusopehhe1553 [place] [address]Dr. Farhat Leal MANUAL DIFF REQ NO Normal [facility] Comment on above: Performed By: #### C BC ####[facility] Ilwyzkwljo7940 [place] [address]Dr. Farhat Leal MCH (RBC) [Entitic mass] 30.0 pg Normal 25.9-34.0 [facility] Comment on above: Performed By: #### C BC ####[facility] Uwgpedrnyu26[address] [place], [place] [address]Dr. Farhat Leal MCHC (RBC) [Mass/Vol] 31.0 g/dL Normal 29.9-35.2 [facility] Comment on above: Performed By: #### C BC ####[facility] Trnytwuufa7[address] [place], [place] [address]DrSkylar Farhat Leal MCV (RBC) [Entitic vol] 96.6 fL Critically high 80.0-94.0 [facility] Comment on above: Performed By: #### C BC ####[facility] Wzqwainowe8754 [place] [phone]. Farhat Leal MONO # 0.7 103/ul Normal 0.3-0.8 [facility] Comment on above: Performed By: #### C BC ####[facility] Cvfkowotmv7132 [place] [address]Dr. Farhat Leal Monocytes/100 WBC (Bld) 6.7 % Normal 1.7-12.0 [facility] Comment on above: Performed By: #### C BC ####[facility] Vfcvzwlvig[address] [place], [place] [address]Dr. Farhat Leal NEUT # 8.8 103/ul Critically high 1.4-6.5 [facility] Comment on above: Performed By: #### C BC ####[facility] Vbthygsgxl7[address] [place], [place] [address]Dr. Farhat Leal Neutrophils/100 WBC (Bld) 81.6 % Critically high 43.0-75.0 [facility] Comment on above: Performed By: #### C BC ####[facility] Junwrtdkai17[address] [place], [place] [address]Dr. Farhat Leal Platelet mean volume (Bld) [Entitic vol] 10.5 fL Normal 9.5-13.5 [facility] Comment on above: Performed By: #### C BC ####[facility] Hkyolidllg[address] [place], [place] [address]Dr. Farhat Leal PLT 285 103/ul Normal 150-450 [facility] Comment on above: Performed By: #### C BC ####[facility] Wrfooirjtp86[address] [place], [place] [address]Dr. Farhat Leal RBC 2.67 106/ul Critically low 4.70-6.10 [facility] Comment on above: Performed By: #### C BC ####[facility] Ozugrcaoqq9[address] [place], [place] [address]Dr. Farhat Leal WBC 10.7 103/ul Normal 4.0-11.0 [facility] Comment on above: Performed By: #### C BC ####[facility] Taeeudxzty[address] [place], [place] [address]Dr. Farhat Leal PROF CHEM 8 (BAS METB)on Anion gap [Moles/Vol] 12.4 mmol/L Normal [facility] Comment on above: Performed By: #### B MP ####[facility] Xorpjehgtk7126 [place] [address]Dr. Madelynlorri Elvis Calcium [Mass/Vol] 7.8 mg/dL Critically low 8.5-10.1 [facility] Comment on above: Performed By: #### B MP ####[facility] Ldrhcepjef4453 [place] [address]Dr. Farhat Leal Chloride [Moles/Vol] 102 mmol/L Normal 98-107 [facility] Comment on above: Performed By: #### B MP ####[facility] Bkajljstqb9539 [place] [address]Dr. Farhat Leal CO2 [Moles/Vol] 28.1 mmol/L Normal 21.0-32.0 [facility] Comment on above: Performed By: #### B MP ####[facility] Mkjhdbswpx[address] [place], [place] [address]Dr. Farhat Leal Creatinine [Mass/Vol] 1.24 mg/dL Normal 0.70-1.30 [facility] Comment on above: Performed By: #### B MP ####[facility] Xqsxggwvup[address] [place], [place] [address]Dr. Farhat Leal EGFR-AF [place] >60 Normal >=60 [facility] Comment on above: Performed By: #### B MP ####[facility] Kndwefadks5716 [place] [address]Dr. Farhat Leal EGFR-NON AF [place] 57 mL/min/1.73m2 Critically low >=60 [facility] Comment on above: Performed By: #### B MP ####[facility] Zrqgoqbbma454[address] [place], [place] [address]Dr. Farhat Leal Glucose [Mass/Vol] 296 mg/dL Critically high 74-106 [facility] Comment on above: Performed By: #### B MP ####[facility] Itlrymieup[address] [place], [place] [address]Dr. Farhat Leal Potassium [Moles/Vol] 3.5 mmol/L Normal 3.5-5.1 [facility] Comment on above: Performed By: #### B MP ####[facility] Eoqdywszhg5671 [place] [address]Dr. Farhat Leal Sodium [Moles/Vol] 139 mmol/L Normal 136-145 [facility] Comment on above: Performed By: #### B MP ####[facility] Cfjycyctdf5417 [place] [address]Dr. Farhat Leal Urea nitrogen [Mass/Vol] 27.0 mg/dL Critically high 7.0-18.0 [facility] Comment on above: Performed By: #### B MP ####[facility] Fhorsiizpl[address] [place], [place] [address]Dr. Farhat Leal Urea nitrogen/Creatinine [Mass ratio] 21.8 mg/mg Normal [facility] Comment on above: Performed By: #### B MP ####[facility] Suofevnubw[address] [place], [place] [address]Dr. Farhat Leal PROTIMEon 12-14-2021 INR Coag (PPP) [Relative time] 3.36 {INR} Normal [facility] Comment on above: Performed By: #### P T ####[facility] Fgvzuctsta[address] [place], [place] [address]Dr. Farhat Leal INR GUIDELINES SEE BELOW Normal [facility] Comment on above: Result Comment: MALINA RED INR: 2.0 - 3.0 CONDITIONS NOT LISTED BELOW 2.5 - 3.5 FOR PROSTHETIC HEART VALVE REPLACEMENT 2.5 - 3.5 RECURRENT THROMBOSIS Performed By: #### P T ####[facility] Iagjhnaedx[address] [place], [place] [address]Dr. Farhat Leal PT Coag (PPP) [Time] 33.5 s Critically high 9.0-11.6 [facility] Comment on above: Performed By: #### P T ####[facility] Ebhedqlynn[address] [place], [place] [address]Dr. Farhat Leal XR CHEST 1 Von 12-14-2021 XR CHEST 1 V Normal [facility] No Panel Informationon 12-01 BLANK _ [facility] Implant Date 04/22/2012 [facility] CHECKon AMS Duration (ms) 5 of 8 [facility] AMS Fallback Rate (bpm) DDIR [facility] AV Delay Adaptive Paced Minimum (ms) 300 ms [facility] AV Delay Adaptive Rate Maximum (bpm) 130 {beats}/min [facility] AV Delay Adaptive Rate Minimum (bpm) 70 {beats}/min [facility] AV Delay Adaptive Sensed Minimum (ms) 300 ms [facility] AV Delay Paced (ms) 300 ms [facility] AV Delay Sensed (ms) 300 ms [facility] Jaciel LV Pacing Polarity Unknown [facility] Jaciel LV Sensing Polarity Unknown [facility] Jaciel RA Pacing Amplitude (volts) 2.4 V [facility] Jaciel RA Pacing Polarity BI [facility] Jaciel RA Pacing Pulse Width (ms) 0.4 ms [facility] Jaciel RA Sensing Amplitude (mvolts) AUTO [facility] Jaciel RA Sensing Blanking Period (ms) 56 ms [facility] Jaciel RA Sensing Polarity BI [facility] Jaciel RA Sensing Refractory Period (ms) AUTO [facility] Jaciel RV Pacing Amplitude (volts) 3.4 V [facility] Jaciel RV Pacing Polarity BI [facility] Jaciel RV Pacing Pulse Width (ms) 0.4 ms [facility] Jaciel RV Sensing Amplitude (mvolts) AUTO [facility] Jaciel RV Sensing Blanking Period (ms) 30 ms [facility] Jaciel RV Sensing Polarity BI [facility] Jaciel RV Sensing Refractory Period (ms) 250 ms [facility] Hysteresis Rate (bpm) 60 {beats}/min [facility] Lead1 Mfg [employer]ZETTE [facility] Lead2 Mfg SUZETTE [facility] Location RA [facility] Location RV [facility] Lower Rate (bpm) 60 {beats}/min [facility] Max Sensor Rate (bmp) 130 {beats}/min [facility] Model 169861 Monika Dominguez [facility] Model [id number] [facility] Model [id number] [facility] Pacemaker Dependent? NO [facility] PM-Device Mfg BIO [facility] PM-PMT Intervention ON [facility] PM-PVC Intervention ON [facility] PM-Rate Modulation Acceleration Reaction 4 s [facility] PM-Rate Modulation Deceleration 0.5 m [facility] PM-Rate Modulation [place] 23 [facility] PM-Rate Modulation Threshold Medium [facility] RA Bipolar Impedance ohms 448 ohm [facility] Rhythm AF with controlled ventricular rate. [facility] RV Bipolar Impedance ohms 390 ohm [facility] Serial Number [id number] [facility] Serial Number [id number] [facility] Serial Number [id number] [facility] Thresh RA Sensing Amplitude (mvolts) 2.4 mV [facility] Thresh RV Capture Amplitude (volts) 1.8 V [facility] Thresh RV Capture Duration (ms) 0.4 ms [facility] Thresh RV Sensing Amplitude (mvolts) 2.4 mV [facility] Tracking Rate (bpm) 160 {beats}/min [facility] BNPon 11-28-2021 Natriuretic peptide B (Bld) [Mass/Vol] 36916.0 pg/mL Critically high <=1,800.0 [facility] Comment on above: Performed By: #### C MP, BNP, CRP ####[facility] Cezrjyiyki[address] [place], [place] [address]Dr. Farhta Leal CBC AUTO DIFFon 11-28-2021 BASO # 0.0 103/ul Normal 0.0-0.1 [facility] Comment on above: Performed By: #### C BC ####[facility] Pbwlpqnbbo[address] [place], [place] [address]Dr. Farhat Leal Basophils/100 WBC (Bld) 0.3 % Normal 0.2-2.0 [facility] Comment on above: Performed By: #### C BC ####[facility] Mpmjzjbawi[address] [place], [place] [address]Dr. Farhat Leal EO # 0.1 103/ul Normal 0.0-0.7 [facility] Comment on above: Performed By: #### C BC ####[facility] Rkbicbpdrr[address] [place], [place] [address]Dr. Farhat Leal Eosinophils/100 WBC (Bld) 1.0 % Normal 0.9-7.0 [facility] Comment on above: Performed By: #### C BC ####[facility] Tjxvpfbplf[address] [place], [place] [address]DrSkylar Leal Erythrocyte distribution width (RBC) [Ratio] 14.0 % Normal 11.0-15.0 [facility] Comment on above: Performed By: #### C BC ####[facility] Jbyqtpwegj6584 [place] [address]DrSkylar Leal Hematocrit (Bld) [Volume fraction] 27.6 % Critically low 42.0-54.0 [facility] Comment on above: Performed By: #### C BC ####[facility] Rfmsrwlqvx8[address] [place], [place] [address]DrSkylar Leal Hemoglobin (Bld) [Mass/Vol] 9.0 g/dL Critically low 14.0-18.0 [facility] Comment on above: Performed By: #### C BC ####[facility] Lqtdimlxjx039[address] [place], [place] [address]DrSkylar Leal IG # 0.12 10e3/ul Critically high 0.00-0.03 [facility] Comment on above: Performed By: #### C BC ####[facility] Ihowhjxmym[address] [place], [place] [address]DrSkylar Leal IG % 1.0 % Critically high 0.0-0.5 [facility] Comment on above: Performed By: #### C BC ####[facility] Vsmgtnetzc89[address] [place], [place] [address]DrSkylar Leal LYMPH # 1.2 103/ul Normal 1.2-3.8 [facility] Comment on above: Performed By: #### C BC ####[facility] Violnthqkw[address] [place], [place] [address]DrSkylar Leal Lymphocytes/100 WBC (Bld) 9.9 % Critically low 20.5-60.0 [facility] Comment on above: Performed By: #### C BC ####[facility] Olocfoxops[address] [place], [place] [address]DrSkylar Leal MANUAL DIFF REQ NO Normal [facility] Comment on above: Performed By: #### C BC ####[facility] Sqyokneyix[address] [place], [place] [address]DrSkylar Leal MCH (RBC) [Entitic mass] 30.0 pg Normal 25.9-34.0 [facility] Comment on above: Performed By: #### C BC ####[facility] [address]rzq[address] [place] [id number]. Farhat Leal MCHC (RBC) [Mass/Vol] 32.6 g/dL Normal 29.9-35.2 [facility] Comment on above: Performed By: #### C BC ####[facility] Fugihyuygl[address] [place], [place] [address]Dr. Farhat Leal MCV (RBC) [Entitic vol] 92.0 fL Normal 80.0-94.0 [facility] Comment on above: Performed By: #### C BC ####[facility] Dydtcoaaqp[address] [place], [place] [address]DrSkylar Leal MONO # 1.1 103/ul Critically high 0.3-0.8 [facility] Comment on above: Performed By: #### C BC ####[facility] Exyykfdqbi447[address] [place], [place] [address]Dr. Farhat Leal Monocytes/100 WBC (Bld) 9.3 % Normal 1.7-12.0 [facility] Comment on above: Performed By: #### C BC ####[facility] Bbrldtqfxe8[address] [place], [place] [address]DrSkylar Leal NEUT # 9.3 103/ul Critically high 1.4-6.5 [facility] Comment on above: Performed By: #### C BC ####[facility] Ekagtbsnhm13[address] [place], [place] [address]Dr. Farhat Leal Neutrophils/100 WBC (Bld) 78.5 % Critically high 43.0-75.0 [facility] Comment on above: Performed By: #### C BC ####[facility] Rwkozszood[address] [place], [place] [address]DrSkylar Leal Platelet mean volume (Bld) [Entitic vol] 9.6 fL Normal 9.5-13.5 [facility] Comment on above: Performed By: #### C BC ####[facility] Enojhnamhq[address] [place], [place] [id number]. Farhat Leal PLT 357 103/ul Normal 150-450 [facility] Comment on above: Performed By: #### C BC ####[facility] Yl[address]orog[address] [place] [id number]. Farhat Leal RBC 3.00 106/ul Critically low 4.70-6.10 [facility] Comment on above: Performed By: #### C BC ####[facility] Trswazuwmx1232 [place] [id number]. Farhat Leal WBC 11.8 103/ul Critically high 4.0-11.0 [facility] Comment on above: Performed By: #### C BC ####[facility] Gwub[address]hkou[address] [place] [address]Dr. Farhat Leal CRPon 11-28-2021 CRP 20.9 mg/dL Critically high <=1.0 [facility] Comment on above: Performed By: #### C MP, BNP, CRP ####[facility] Xvuuctyoji9669 [place] [address]Dr. Farhat Leal CULTURE OTHERon 11-28-2021 CULTURE OTHER Normal [facility] Comment on above: Performed By: #### O THCX ####[facility] Zpyqmxgdle[address] [place], [place] [address]Dr. Farhat Leal CULTURE OTHER Normal [facility] Comment on above: Performed By: #### O THCX ####[facility] Uduiuocstt[address] [place], [place] [address]Dr. Farhat Elvis PROF 14(COMP METB)on 022 Albumin [Mass/Vol] 1.4 g/dL Critically low 3.4-5.0 [facility] Comment on above: Performed By: #### C MP, BNP, CRP ####[facility] Qgakhroiew2606 [place] [address]Dr. Farhat Leal Albumin/Globulin [Mass ratio] 0.4 {ratio} Normal [facility] Comment on above: Performed By: #### C MP, BNP, CRP ####[facility] Lnitnzrshw3061 [place] [address]Dr. Farhat Leal ALP [Catalytic activity/Vol] 82 U/L Normal 46-116 [facility] Comment on above: Performed By: #### C MP, BNP, CRP ####[facility] Wtujvfwopg2350 [place] [address]Dr. Farhat Leal ALT [Catalytic activity/Vol] 20 U/L Normal 16-63 [facility] Comment on above: Performed By: #### C MP, BNP, CRP ####[facility] Wizhtlgeel[address] [place] [address]Dr. Farhat Leal Anion gap [Moles/Vol] 13.0 mmol/L Normal [facility] Comment on above: Performed By: #### C MP, BNP, CRP ####[facility] Rokoifoqsn0514 [place] [address]Dr. Farhat Leal AST [Catalytic activity/Vol] 33 U/L Normal 15-37 [facility] Comment on above: Performed By: #### C MP, BNP, CRP ####[facility] Naqrlkjlkw3475 [place] [address]Dr. Farhat Leal Bilirubin [Mass/Vol] 0.7 mg/dL Normal 0.2-1.0 [facility] Comment on above: Performed By: #### C MP, BNP, CRP ####[facility] Rvingcacrk9179 [place] [address]Dr. Farhat Leal Calcium [Mass/Vol] 8.4 mg/dL Critically low 8.5-10.1 [facility] Comment on above: Performed By: #### C MP, BNP, CRP ####[facility] Gebwzzepbb7257 [place] [address]Dr. Farhat Leal Chloride [Moles/Vol] 100 mmol/L Normal 98-107 [facility] Comment on above: Performed By: #### C MP, BNP, CRP ####[facility] Spmlpjfach2561 [place] [address]Dr. Farhat Leal CO2 [Moles/Vol] 23.7 mmol/L Normal 21.0-32.0 [facility] Comment on above: Performed By: #### C MP, BNP, CRP ####[facility] Fjwsgzpufb9980 [place] [address]Dr. Farhat Elvis Creatinine [Mass/Vol] 1.70 mg/dL Critically high 0.70-1.30 [facility] Comment on above: Performed By: #### C MP, BNP, CRP ####[facility] Omjmwfqkht[address] [place], [place] [address]Dr. Farhat Elvis EGFR-AF [place] 48 mL/min/1.73m2 Critically low >=60 [facility] Comment on above: Performed By: #### C MP, BNP, CRP ####[facility] Phwmrwvgip[address] [place], [place] [address]Dr. Madelynlorri Elvis EGFR-NON AF [place] 39 mL/min/1.73m2 Critically low >=60 [facility] Comment on above: Performed By: #### C MP, BNP, CRP ####[facility] Kcvgohcgut[address] [place], [place] [address]Dr. Farhat Leal Globulin (S) [Mass/Vol] 3.6 g/dL Normal [facility] Comment on above: Performed By: #### C MP, BNP, CRP ####[facility] Xsnktfbjle97[address] [place], [place] [address]Dr. Farhat Leal Glucose [Mass/Vol] 232 mg/dL Critically high 74-106 T [facility] Comment on above: Performed By: #### C MP, BNP, CRP ####[facility] Nrlsoszodq[address] [place], [place] [address]Dr. Farhat Leal Potassium [Moles/Vol] 3.7 mmol/L Normal 3.5-5.1 [facility] Comment on above: Performed By: #### C MP, BNP, CRP ####[facility] Nmpfwrshnc[address] [place], [place] [address]Dr. Farhat Leal Protein [Mass/Vol] 5.0 g/dL Critically low 6.4-8.2 Th [facility] Comment on above: Performed By: #### C MP, BNP, CRP ####[facility] Zbhvxmkysl[address] [place], [place] [address]Dr. Farhat Leal Sodium [Moles/Vol] 133 mmol/L Critically low 136-145 Th e [facility] Comment on above: Performed By: #### C MP, BNP, CRP ####[facility] Pmahuwqozf9314 [place] [id number]. Farhat Leal Urea nitrogen [Mass/Vol] 52.0 mg/dL Critically high 7.0-18.0 [facility] Comment on above: Performed By: #### C MP, BNP, CRP ####[facility] Efzxtgufaa0358 [place] [address]Dr. Farhat Leal Urea nitrogen/Creatinine [Mass ratio] 30.6 mg/mg Normal [facility] Comment on above: Performed By: #### C MP, BNP, CRP ####[facility] Vzisgorwcr5255 [place] [address]Dr. Farhat Leal PROTIMEon 11-28-2021 INR Coag (PPP) [Relative time] 1.29 {INR} Normal [facility] Comment on above: Performed By: #### P T ####[facility] Bukrjrhryx[address] [place], [place] [address]Dr. Farhat Leal INR GUIDELINES SEE BELOW Normal [facility] Comment on above: Result Comment: MALINA RED INR: 2.0 - 3.0 CONDITIONS NOT LISTED BELOW 2.5 - 3.5 FOR PROSTHETIC HEART VALVE REPLACEMENT 2.5 - 3.5 RECURRENT THROMBOSIS Performed By: #### P T ####[facility] Yzhkflzcjr[address] [place], [place] [address]Dr. Farhat Lael PT Coag (PPP) [Time] 13.7 s Critically high 9.0-11.6 [facility] Comment on above: Performed By: #### P T ####[facility] Vrvfpwshlk9721 [place] [address]DrSkylar Leal [facility] SED RATE 77 mm/hr Critically high <=20 [facility] Comment on above: Performed By: #### S EDR ####[facility] Wmbnhlzfue[address] [place], [place] [address]DrSkylar Leal XR CHEST 2 Von 11-28-2021 XR CHEST 2 V Normal [facility] BNPon 11-27-2021 Natriuretic peptide B (Bld) [Mass/Vol] 24272.0 pg/mL Critically high <=1,800.0 [facility] Comment on above: Performed By: #### B RFID SYSTEMS ARCHITECT, CMP, CRP ####[facility] Ptpajbmdrv7238 [place] [address]Dr. Farhat Leal CBC AUTO DIFFon 11-27-2021 BASO # 0.0 103/ul Normal 0.0-0.1 [facility] Comment on above: Performed By: #### C BC ####[facility] Sirgdqeuhf[address] [place], [place] [address]Dr. Farhat Leal Basophils/100 WBC (Bld) 0.2 % Normal 0.2-2.0 [facility] Comment on above: Performed By: #### C BC ####[facility] Gsllybgudc[address] [place], [place] [address]Dr. Farhat Leal EO # 0.2 103/ul Normal 0.0-0.7 [facility] Comment on above: Performed By: #### C BC ####[facility] Cfekchncbx[address] [place], [place] [address]Dr. Farhat Leal Eosinophils/100 WBC (Bld) 1.9 % Normal 0.9-7.0 [facility] Comment on above: Performed By: #### C BC ####[facility] Tgjjcusheg[address] [place], [place] [address]Dr. Farhat Leal Erythrocyte distribution width (RBC) [Ratio] 13.9 % Normal 11.0-15.0 [facility] Comment on above: Performed By: #### C BC ####[facility] Arcuscysqm[address] [place], [place] [address]Dr. Farhat Leal Hematocrit (Bld) [Volume fraction] 28.7 % Critically low 42.0-54.0 [facility] Comment on above: Performed By: #### C BC ####[facility] Tmqnizegxw[address] [place], [place] [address]Dr. Farhat Leal Hemoglobin (Bld) [Mass/Vol] 9.3 g/dL Critically low 14.0-18.0 [facility] Comment on above: Performed By: #### C BC ####[facility] Mltnqgnakf9664 [place] [address]Dr. Farhat Leal IG # 0.14 10e3/ul Critically high 0.00-0.03 [facility] Comment on above: Performed By: #### C BC ####[facility] Tdfoujyufz5549 [place] [address]Dr. Farhat Leal IG % 1.2 % Critically high 0.0-0.5 [facility] Comment on above: Performed By: #### C BC ####[facility] Fjbaassrcv9902 [place] [address]DrSkylar Leal LYMPH # 1.1 103/ul Critically low 1.2-3.8 [facility] Comment on above: Performed By: #### C BC ####[facility] Pokjkmhvne9217 [place] [address]DrSkylar Leal Lymphocytes/100 WBC (Bld) 9.4 % Critically low 20.5-60.0 [facility] Comment on above: Performed By: #### C BC ####[facility] Furtytxrkk5833 [place] [address]DrSkylar Leal MANUAL DIFF REQ NO Normal [facility] Comment on above: Performed By: #### C BC ####[facility] Yczyuznmpi1621 [place] [address]DrSkylar Leal MCH (RBC) [Entitic mass] 29.7 pg Normal 25.9-34.0 [facility] Comment on above: Performed By: #### C BC ####[facility] Kcmrxaveyl0866 [place] [phone] Leal MCHC (RBC) [Mass/Vol] 32.4 g/dL Normal 29.9-35.2 [facility] Comment on above: Performed By: #### C BC ####[facility] Nucjxiigrn8008 [place] [phone] Leal MCV (RBC) [Entitic vol] 91.7 fL Normal 80.0-94.0 [facility] Comment on above: Performed By: #### C BC ####[facility] Nvnkoxjyio1108 [place] [address]DrSkylar Farhat Elvis MONO # 1.1 103/ul Critically high 0.3-0.8 [facility] Comment on above: Performed By: #### C BC ####[facility] Adliukufaw6626 [place] [address]Dr. Farhat Leal Monocytes/100 WBC (Bld) 9.7 % Normal 1.7-12.0 [facility] Comment on above: Performed By: #### C BC ####[facility] Muczphjlwn6811 [place] [address]Dr. Madelynlorri Elvsi NEUT # 9.2 103/ul Critically high 1.4-6.5 [facility] Comment on above: Performed By: #### C BC ####[facility] Pswzhepfoq[address] [place], [place] [address]Dr. Farhat Leal Neutrophils/100 WBC (Bld) 77.6 % Critically high 43.0-75.0 [facility] Comment on above: Performed By: #### C BC ####[facility] Meoecaepcx[address] [place], [place] [address]Dr. Madelynlorri Leal Platelet mean volume (Bld) [Entitic vol] 9.5 fL Normal 9.5-13.5 [facility] Comment on above: Performed By: #### C BC ####[facility] Yrdijrsklw4154 [place] [address]Dr. Farhat Leal PLT 375 103/ul Normal 150-450 [facility] Comment on above: Performed By: #### C BC ####[facility] Bdewriihzv2377 [place] [phone] Leal RBC 3.13 106/ul Critically low 4.70-6.10 [facility] Comment on above: Performed By: #### C BC ####[facility] Ybbkhqjsev8915 [place] [phone] Leal WBC 11.8 103/ul Critically high 4.0-11.0 [facility] Comment on above: Performed By: #### C BC ####[facility] Awordlncrx7743 [place] [address]Dr. Madelynlorri Elvis CRPon 11-27-2021 CRP 24.5 mg/dL Critically high <=1.0 [facility] Comment on above: Performed By: #### B RFID SYSTEMS ARCHITECT, CMP, CRP ####[facility] Lujzgavtsz7518 [place] [address]Dr. Madelynlorri Leal CULTURE OTHERon 11-27-2021 CULTURE OTHER Normal [facility] Comment on above: Performed By: #### O THCX ####[facility] Vmmbrzzuli2292 [place] [address]Dr. Farhat Leal CULTURE OTHER Normal [facility] Comment on above: Performed By: #### O THCX ####[facility] Nuqabxhnzr6383 [place] [address]Dr. Farhat Leal CULTURE WOUNDon 11-27-2021 CULTURE WOUND Normal [facility] Comment on above: Performed By: #### W OUNDCX ####[facility] Aqlwphrcaw[address] [place] [address]Dr. Farhat Leal POINT OF CARE GLUCOSEon 11-15 Glucose [Mass/Vol] 147 mg/dL Critically high 74-106 [facility] Comment on above: Performed By: #### P OCGLUC ####[facility] Jqncxxmmrm3110 [place] [address]Dr. Farhat Leal PROF 14(COMP METB)on 022 Albumin [Mass/Vol] 1.4 g/dL Critically low 3.4-5.0 [facility] Comment on above: Performed By: #### B RFID SYSTEMS ARCHITECT, CMP, CRP ####[facility] Htbgktxmms9593 [place] [address]Dr. Farhat Leal Albumin/Globulin [Mass ratio] 0.4 {ratio} [facility] Comment on above: Performed By: #### B RFID SYSTEMS ARCHITECT, CMP, CRP ####[facility] Eijpysvbnb6090 [place] [address]Dr. Farhat Leal ALP [Catalytic activity/Vol] 82 U/L Normal 46-116 [facility] Comment on above: Performed By: #### B RFID SYSTEMS ARCHITECT, CMP, CRP ####[facility] Okuyfmtogm0544 [place] [address]Dr. Farhat Leal ALT [Catalytic activity/Vol] 22 U/L Normal 16-63 [facility] Comment on above: Performed By: #### B RFID SYSTEMS ARCHITECT, CMP, CRP ####[facility] Dcqfprssjf5631 [place] [address]Dr. Farhat Leal Anion gap [Moles/Vol] 14.2 mmol/L Normal [facility] Comment on above: Performed By: #### B RFID SYSTEMS ARCHITECT, CMP, CRP ####[facility] Bbnyfmnfly[address] [place], [place] [address]Dr. Farhat Leal AST [Catalytic activity/Vol] 35 U/L Normal 15-37 [facility] Comment on above: Performed By: #### B RFID SYSTEMS ARCHITECT, CMP, CRP ####[facility] Aasccvcivc[address] [place], [place] [address]Dr. Farhat Leal Bilirubin [Mass/Vol] 0.7 mg/dL Normal 0.2-1.0 [facility] Comment on above: Performed By: #### B RFID SYSTEMS ARCHITECT, CMP, CRP ####[facility] Umtppiyxqm14[address] [place], [place] [address]Dr. Farhat Leal Calcium [Mass/Vol] 8.2 mg/dL Critically low 8.5-10.1 [facility] Comment on above: Performed By: #### B RFID SYSTEMS ARCHITECT, CMP, CRP ####[facility] Arkywgxfxu0349 [place] [address]Dr. Farhat Leal Chloride [Moles/Vol] 99 mmol/L Normal 98-107 [facility] Comment on above: Performed By: #### B RFID SYSTEMS ARCHITECT, CMP, CRP ####[facility] Hqrwoyyfdj9510 [place] [address]Dr. Farhat Leal CO2 [Moles/Vol] 22.6 mmol/L Normal 21.0-32.0 [facility] Comment on above: Performed By: #### B RFID SYSTEMS ARCHITECT, CMP, CRP ####[facility] Zvimynivjw3590 [place] [address]Dr. Farhat Leal Creatinine [Mass/Vol] 1.73 mg/dL Critically high 0.70-1.30 [facility] Comment on above: Performed By: #### B RFID SYSTEMS ARCHITECT, CMP, CRP ####[facility] Ccdhbgquhx2204 [place] [address]Dr. Farhat Elvis EGFR-AF [place] 47 mL/min/1.73m2 Critically low >=60 [facility] Comment on above: Performed By: #### B RFID SYSTEMS ARCHITECT, CMP, CRP ####[facility] Mpkktxrifh23[address] [place], [place] [address]Dr. Madelynlorri Elvis EGFR-NON AF [place] 38 mL/min/1.73m2 Critically low >=60 [facility] Comment on above: Performed By: #### B RFID SYSTEMS ARCHITECT, CMP, CRP ####[facility] Dagkedmzrt6[address] [place], [place] [address]Dr. Farhat Leal Globulin (S) [Mass/Vol] 3.7 g/dL Normal [facility] Comment on above: Performed By: #### B RFID SYSTEMS ARCHITECT, CMP, CRP ####[facility] Bkfwgocqse87[address] [place], [place] [address]Dr. Farhat Leal Glucose [Mass/Vol] 220 mg/dL Critically high 74-106 T [facility] Comment on above: Performed By: #### B RFID SYSTEMS ARCHITECT, CMP, CRP ####[facility] Wtnxfwcfsb14[address] [place], [place] [address]Dr. Madelynlorri Elvis Potassium [Moles/Vol] 3.8 mmol/L Normal 3.5-5.1 [facility] Comment on above: Performed By: #### B RFID SYSTEMS ARCHITECT, CMP, CRP ####[facility] Hoikmfdrsv66[address] [place], [place] [address]Dr. Madelynlorri Elvis Protein [Mass/Vol] 5.1 g/dL Critically low 6.4-8.2 Th [facility] Comment on above: Performed By: #### B RFID SYSTEMS ARCHITECT, CMP, CRP ####[facility] Czpiuisodo30[address] [place], [place] [address]Dr. Farhat Leal Sodium [Moles/Vol] 132 mmol/L Critically low 136-145 Th e [facility] Comment on above: Performed By: #### B RFID SYSTEMS ARCHITECT, CMP, CRP ####[facility] Kxpgyuwnoz1025 [place] [address]Dr. Farhat Leal Urea nitrogen [Mass/Vol] 49.0 mg/dL Critically high 7.0-18.0 [facility] Comment on above: Performed By: #### B RFID SYSTEMS ARCHITECT, CMP, CRP ####[facility] Bvpgvofjxe974[address] [place], [place] [address]Dr. Farhat Leal Urea nitrogen/Creatinine [Mass ratio] 28.3 mg/mg Normal [facility] Comment on above: Performed By: #### B RFID SYSTEMS ARCHITECT, CMP, CRP ####[facility] Ilebfwlulw147[address] [place], [place] [address]Dr. Farhat Leal PROTIMEon 11-27-2021 INR Coag (PPP) [Relative time] 1.25 {INR} Normal [facility] Comment on above: Performed By: #### P T ####[facility] Xhdcujohwt[address] [place], [place] [address]Dr. Farhat Leal INR GUIDELINES SEE BELOW Normal [facility] Comment on above: Result Comment: MALINA RED INR: 2.0 - 3.0 CONDITIONS NOT LISTED BELOW 2.5 - 3.5 FOR PROSTHETIC HEART VALVE REPLACEMENT 2.5 - 3.5 RECURRENT THROMBOSIS Performed By: #### P T ####[facility] Fufsbpiyhg[address] [place], [place] [address]Dr. Farhat Leal PT Coag (PPP) [Time] 13.3 s Critically high 9.0-11.6 [facility] Comment on above: Performed By: #### P T ####[facility] Jfssieogld[address] [place], [place] [address]Dr. Farhat Leal SED RATE WESTERGRENon 2021 SED RATE 60 mm/hr Critically high <=20 [facility] Comment on above: Performed By: #### S EDR ####[facility] Xmanxefzbt25[address] [place], [place] [address]Dr. Farhat Leal VANCOMYCIN TROUGHon 10-13-20 22 VANCOMYCIN TROUGH 21.2 ug/ml Critically high 5.0-20.0 Th e [facility] Comment on above: Performed By: #### V ANCT ####[facility] Wjtcqntsld[address] [place], [place] [address]Dr. Farhat Leal XR CHEST 1 Von 11-27-2021 XR CHEST 1 V Normal [facility] BNPon 11-26-2021 Natriuretic peptide B (Bld) [Mass/Vol] 23303.0 pg/mL Critically high <=1,800.0 [facility] Comment on above: Performed By: #### B RFID SYSTEMS ARCHITECT, CRP, CMP ####[facility] Holdmsmruw[address] [place], [place] [address]Dr. Farhat Leal CBC AUTO DIFFon 11-26-2021 BASO # 0.0 103/ul Normal 0.0-0.1 [facility] Comment on above: Performed By: #### C BC ####[facility] Whbcldpwrh[address] [place], [place] [address]Dr. Farhat Leal Basophils/100 WBC (Bld) 0.2 % Normal 0.2-2.0 [facility] Comment on above: Performed By: #### C BC ####[facility] Drsdlsolkv[address] [place], [place] [address]DrSkylar Leal EO # 0.0 103/ul Normal 0.0-0.7 [facility] Comment on above: Performed By: #### C BC ####[facility] Nnkznphefl[address] [place], [place] [address]DrSkylar Leal Eosinophils/100 WBC (Bld) 0.3 % Critically low 0.9-7.0 [facility] Comment on above: Performed By: #### C BC ####[facility] Jjqcuqfdrh[address] [place], [place] [address]DrSkylar Leal Erythrocyte distribution width (RBC) [Ratio] 13.9 % Normal 11.0-15.0 [facility] Comment on above: Performed By: #### C BC ####[facility] Fcbaoegysl7[address] [place], [place] [address]DrSkylar Leal Hematocrit (Bld) [Volume fraction] 27.3 % Critically low 42.0-54.0 [facility] Comment on above: Performed By: #### C BC ####[facility] Jdkpwxibbz8850 [place] [address]DrSkylar Leal Hemoglobin (Bld) [Mass/Vol] 8.8 g/dL Critically low 14.0-18.0 [facility] Comment on above: Performed By: #### C BC ####[facility] Ieizlsjrzm[address] [place], [place] [address]DrSkylar Leal IG # 0.17 10e3/ul Critically high 0.00-0.03 [facility] Comment on above: Performed By: #### C BC ####[facility] Ehlowvogjq[address] [place], [place] [address]DrSkylar Leal IG % 1.2 % Critically high 0.0-0.5 [facility] Comment on above: Performed By: #### C BC ####[facility] Mwlcpturca[address] [place], [place] [address]DrSkylar Leal LYMPH # 0.7 103/ul Critically low 1.2-3.8 [facility] Comment on above: Performed By: #### C BC ####[facility] Fcwlsgdrmn85[address] [place], [place] [address]DrSkylar Leal Lymphocytes/100 WBC (Bld) 4.8 % Critically low 20.5-60.0 [facility] [facility] Comment on above: Performed By: #### C BC ####[facility] Fexkwwbdff[address] [place], [place] [address]DrSkylar Leal MANUAL DIFF REQ NO Normal [facility] Comment on above: Performed By: #### C BC ####[facility] Cbxdaxecuw[address] [place], [place] [address]DrSkylar Leal MCH (RBC) [Entitic mass] 29.9 pg Normal 25.9-34.0 [facility] Comment on above: Performed By: #### C BC ####[facility] Pndeycspdi[address] [place], [place] [address]DrSkylar Leal MCHC (RBC) [Mass/Vol] 32.2 g/dL Normal 29.9-35.2 [facility] Comment on above: Performed By: #### C BC ####[facility] Yxkq[address]ufzuf[address] [place] [address]DrSkylar Leal MCV (RBC) [Entitic vol] 92.9 fL Normal 80.0-94.0 [facility] Comment on above: Performed By: #### C BC ####[facility] Lkhryyfrzp[address] [place], [place] [address]DrSkylar Leal MONO # 1.3 103/ul Critically high 0.3-0.8 [facility] Comment on above: Performed By: #### C BC ####[facility] Xkhckuncyw[address] [place], [place] [address]DrSkylar Leal Monocytes/100 WBC (Bld) 9.6 % Normal 1.7-12.0 [facility] Comment on above: Performed By: #### C BC ####[facility] Gjfoghsvva9[address] [place], [place] [address]DrSkylar Leal NEUT # 11.4 103/ul Critically high 1.4-6.5 [facility] Comment on above: Performed By: #### C BC ####[facility] Gbqfcctusb03[address] [place], [place] [address]DrSkylar Leal Neutrophils/100 WBC (Bld) 83.9 % Critically high 43.0-75.0 [facility] Comment on above: Performed By: #### C BC ####[facility] Gpoqvzghjy[address] [place], [place] [address]DrSkylar Leal Platelet mean volume (Bld) [Entitic vol] 9.6 fL Normal 9.5-13.5 [facility] Comment on above: Performed By: #### C BC ####[facility] Cucwjwqotv[address] [place], [place] [address]DrSkylar Leal PLT 395 103/ul Normal 150-450 [facility] Comment on above: Performed By: #### C BC ####[facility] Gdumsqgzvi22[address] [place], [place] [address]DrSkylar Leal RBC 2.94 106/ul Critically low 4.70-6.10 [facility] Comment on above: Performed By: #### C BC ####[facility] Nsvyrvxejm[address]21 [place] [address]Dr. Farhat Leal WBC 13.6 103/ul Critically high 4.0-11.0 [facility] Comment on above: Performed By: #### C BC ####[facility] Tvcydekedz6399 [place] [address]Dr. Farhat Leal CRPon 11-26-2021 CRP [Mass/Vol] mg/L Critically high <=1.0 [facility] Comment on above: Performed By: #### B [employer] SYSTEM[employer] ARCHITECT, CRP, CMP ####[facility] Tevxcgaqvo098[address] [place], [place] [address]Dr. Farhat Leal PROF 14(COMP METB)on 022 Albumin [Mass/Vol] 1.5 g/dL Critically low 3.4-5.0 [facility] Comment on above: Performed By: #### B [employer] SYSTEM[employer] ARCHITECT, CRP, CMP ####[facility] Wklxnbbdds4[address] [place] [address]Dr. Farhat Leal Albumin/Globulin [Mass ratio] 0.4 {ratio} Normal [facility] Comment on above: Performed By: #### B [employer] SYSTEM[employer] ARCHITECT, CRP, CMP ####[facility] Iqivtetuis4738 [place] [address]Dr. Farhat Leal ALP [Catalytic activity/Vol] 88 U/L Normal 46-116 [facility] Comment on above: Performed By: #### B [employer] SYSTEMS ARCHITECT, CRP, CMP ####[facility] Ucqkiuxfmd2491 [place] [address]Dr. Farhat Leal ALT [Catalytic activity/Vol] 29 U/L Normal 16-63 [facility] Comment on above: Performed By: #### B [employer] SYSTEM[employer] ARCHITECT, CRP, CMP ####[facility] Qjrdkutnpj5377 [place] [address]Dr. Farhat Leal Anion gap [Moles/Vol] 13.3 mmol/L Normal [facility] Comment on above: Performed By: #### B [employer] SYSTEMS ARCHITECT, CRP, CMP ####[facility] Fsgzfcsfws8997 [place] [address]Dr. Farhat Leal AST [Catalytic activity/Vol] 32 U/L Normal 15-37 [facility] Comment on above: Performed By: #### B [employer] SYSTEM[employer] ARCHITECT, CRP, CMP ####[facility] Iamphlrnxv9929 [place] [address]Dr. Farhat Leal Bilirubin [Mass/Vol] 0.6 mg/dL Normal 0.2-1.0 [facility] Comment on above: Performed By: #### B [employer] SYSTEMS ARCHITECT, CRP, CMP ####[facility] Chwjxycujq1470 [place] [address]Dr. Farhat Leal Calcium [Mass/Vol] 8.0 mg/dL Critically low 8.5-10.1 [facility] Comment on above: Performed By: #### B [employer] SYSTEMS ARCHITECT, CRP, CMP ####[facility] Pksnujoqym9[address] [place], [place] [address]Dr. Farhat Leal Chloride [Moles/Vol] 98 mmol/L Normal 98-107 [facility] Comment on above: Performed By: #### B [employer] SYSTEM[employer] ARCHITECT, CRP, CMP ####[facility] Hbktcyfczw6636[address] [place], [place] [address]Dr. Farhat Leal CO2 [Moles/Vol] 23.7 mmol/L Normal 21.0-32.0 [facility] Comment on above: Performed By: #### B [employer] SYSTEMS ARCHITECT, CRP, CMP ####[facility] Uqmjjdqrlz0472 [place] [address]Dr. Farhat Leal Creatinine [Mass/Vol] 2.08 mg/dL Critically high 0.70-1.30 [facility] Comment on above: Performed By: #### B [employer] SYSTEMS ARCHITECT, CRP, CMP ####[facility] Qepokumfck317[address] [place], [place] [address]Dr. Farhat Leal EGFR-AF [place] 38 mL/min/1.73m2 Critically low >=60 [facility] Comment on above: Performed By: #### B [employer] SYSTEMS ARCHITECT, CRP, CMP ####[facility] Notwhusyyd065[address] [place], [place] [address]Dr. Farhat Leal EGFR-NON AF [place] 31 mL/min/1.73m2 Critically low >=60 [facility] Comment on above: Performed By: #### B [employer] SYSTEMS ARCHITECT, CRP, CMP ####[facility] Aerrtsuhqv9906 [place] [address]Dr. Farhat Leal Globulin (S) [Mass/Vol] 3.7 g/dL Normal [facility] Comment on above: Performed By: #### B [employer] SYSTEMS ARCHITECT, CRP, CMP ####[facility] Jccjpixgvc8563 [place] [address]Dr. Farhat Leal Glucose [Mass/Vol] 315 mg/dL Critically high 74-106 [facility] Comment on above: Performed By: #### B [employer] SYSTEMS ARCHITECT, CRP, CMP ####[facility] Vmszgiaqww848[address] [place], [place] [address]Dr. Farhat Leal Potassium [Moles/Vol] 4.0 mmol/L Normal 3.5-5.1 [facility] Comment on above: Performed By: #### B [employer] SYSTEMS ARCHITECT, CRP, CMP ####[facility] Frmxkzxfkg620[address] [place], [place] [address]Dr. Farhat Leal Protein [Mass/Vol] 5.2 g/dL Critically low 6.4-8.2 [facility] Comment on above: Performed By: #### B [employer] SYSTEMS ARCHITECT, CRP, CMP ####[facility] Rhixqrebkr[address] [place], [place] [address]Dr. Farhat Leal Sodium [Moles/Vol] 131 mmol/L Critically low 136-145 [facility] Comment on above: Performed By: #### B [employer] SYSTEMS ARCHITECT, CRP, CMP ####[facility] Cfxfpbarpo128[address] [place], [place] [address]Dr. Farhat Leal Urea nitrogen [Mass/Vol] 50.0 mg/dL Critically high 7.0-18.0 [facility] Comment on above: Performed By: #### B [employer] SYSTEMS ARCHITECT, CRP, CMP ####[facility] Wiadlrihci9[address] [place], [place] [address]Dr. Farhat Leal Urea nitrogen/Creatinine [Mass ratio] 24.0 mg/mg Normal [facility] Comment on above: Performed By: #### B [employer] SYSTEMS ARCHITECT, CRP, CMP ####[facility] Ucfsqgatsg5120 [place] [address]Dr. Farhat Leal PROTIMEon 11-26-2021 INR Coag (PPP) [Relative time] 1.31 {INR} Normal [facility] Comment on above: Performed By: #### P T ####[facility] Dlxcvfcbfg6845 [place] [address]Dr. Farhat Leal INR GUIDELINES SEE BELOW Normal [facility] Comment on above: Result Comment: MALINA RED INR: 2.0 - 3.0 CONDITIONS NOT LISTED BELOW 2.5 - 3.5 FOR PROSTHETIC HEART VALVE REPLACEMENT 2.5 - 3.5 RECURRENT THROMBOSIS Performed By: #### P T ####[facility] Zvsbptwssy164[address] [place], [place] [address]Dr. Farhat Leal PT Coag (PPP) [Time] 13.9 s Critically high 9.0-11.6 [facility] Comment on above: Performed By: #### P T ####[facility] Cfkvvimfhp757[address] [place], [place] [address]Dr. Farhat Leal SED RATE WOOLWICHERGREN 2021 SED RATE 87 mm/hr Critically high <=20 [facility] Comment on above: Performed By: #### S EDR ####[facility] Ibmaevufbv464[address] [place], [place] [address]Dr. Farhat Leal BNPon 11-25-2021 Natriuretic peptide B (Bld) [Mass/Vol] 57630.0 pg/mL Critically high <=1,800.0 [facility] Comment on above: Performed By: #### C MP, BNP, CRP ####[facility] Mchvsgpgzc112[address] [place], [place] [address]Dr. Farhat Leal CBC AUTO DIFFon 11-25-2021 BASO # 0.0 103/ul Normal 0.0-0.1 [facility] Comment on above: Performed By: #### C BC ####[facility] Bygacofnzv400[address] [place], [place] [address]Dr. Farhat Leal Basophils/100 WBC (Bld) 0.4 % Normal 0.2-2.0 [facility] Comment on above: Performed By: #### C BC ####[facility] Rblhjoygep8773 [place] [id number]. Farhat Leal EO # 0.1 103/ul Normal 0.0-0.7 [facility] Comment on above: Performed By: #### C BC ####[facility] Uqvhshujrz7902 [place] [id number]. Farhat Leal Eosinophils/100 WBC (Bld) 1.2 % Normal 0.9-7.0 [facility] Comment on above: Performed By: #### C BC ####[facility] Uzvxzetjle4227 [place] [address]Dr. Farhat Leal Erythrocyte distribution width (RBC) [Ratio] 13.7 % Normal 11.0-15.0 [facility] Comment on above: Performed By: #### C BC ####[facility] Oqqbudyugj373[address] [place], [place] [address]Dr. Farhat Leal Hematocrit (Bld) [Volume fraction] 29.6 % Critically low 42.0-54.0 [facility] Comment on above: Performed By: #### C BC ####[facility] Crqfnkwjzc244[address] [place], [place] [address]Dr. Farhat Leal Hemoglobin (Bld) [Mass/Vol] 9.3 g/dL Critically low 14.0-18.0 [facility] Comment on above: Performed By: #### C BC ####[facility] Nyhgqenhlu98[address] [place], [place] [address]Dr. Farhat Leal IG # 0.15 10e3/ul Critically high 0.00-0.03 [facility] Comment on above: Performed By: #### C BC ####[facility] Hgzqgungam69[address] [place], [place] [address]Dr. Farhat Leal IG % 1.4 % Critically high 0.0-0.5 [facility] Comment on above: Performed By: #### C BC ####[facility] Bpdksgrsyc42[address] [place], [place] [address]DrSkylar Leal LYMPH # 0.8 103/ul Critically low 1.2-3.8 [facility] Comment on above: Performed By: #### C BC ####[facility] Tglyorxktv3112 [place] [address]Dr. Farhat Leal Lymphocytes/100 WBC (Bld) 7.3 % Critically low 20.5-60.0 [facility] Comment on above: Performed By: #### C BC ####[facility] Uiudkfvpui1062 [place] [address]Dr. Farhat Leal MANUAL DIFF REQ NO Normal [facility] Comment on above: Performed By: #### C BC ####[facility] Evzwbaneum9849 [place] [address]Dr. Farhat Leal MCH (RBC) [Entitic mass] 29.3 pg Normal 25.9-34.0 [facility] Comment on above: Performed By: #### C BC ####[facility] Emdccpumsr957[address] [place], [place] [address]Dr. Farhat Leal MCHC (RBC) [Mass/Vol] 31.4 g/dL Normal 29.9-35.2 [facility] Comment on above: Performed By: #### C BC ####[facility] Xckjiwaaxo118[address] [place], [place] [address]Dr. Farhat Leal MCV (RBC) [Entitic vol] 93.4 fL Normal 80.0-94.0 [facility] Comment on above: Performed By: #### C BC ####[facility] Jskiemefxf8509 [place] [address]Dr. Farhat Leal MONO # 1.3 103/ul Critically high 0.3-0.8 [facility] Comment on above: Performed By: #### C BC ####[facility] Irnkfnyljy7488 [place] [address]Dr. Farhat Leal Monocytes/100 WBC (Bld) 12.3 % Critically high 1.7-12.0 [facility] Comment on above: Performed By: #### C BC ####[facility] Wyomhqydgb3466 [place] [address]Dr. Farhat Leal NEUT # 8.4 103/ul Critically high 1.4-6.5 [facility] Comment on above: Performed By: #### C BC ####[facility] Tlwzpqqsod1367 [place] [address]Dr. Farhat Leal Neutrophils/100 WBC (Bld) 77.4 % Critically high 43.0-75.0 [facility] Comment on above: Performed By: #### C BC ####[facility] Toivpafnci7882 [place] [address]Dr. Farhat Leal Platelet mean volume (Bld) [Entitic vol] 9.8 fL Normal 9.5-13.5 [facility] Comment on above: Performed By: #### C BC ####[facility] Byawwurzns7409 [place] [address]Dr. Farhat Leal PLT 390 103/ul Normal 150-450 [facility] Comment on above: Performed By: #### C BC ####[facility] Mdyeyodwbu85[address] [place], [place] [address]Dr. Farhat Leal RBC 3.17 106/ul Critically low 4.70-6.10 [facility] Comment on above: Performed By: #### C BC ####[facility] Phqatgcicb264[address] [place], [place] [address]Dr. Farhat Leal WBC 10.9 103/ul Normal 4.0-11.0 [facility] Comment on above: Performed By: #### C BC ####[facility] Mtpmnepqgs[address] [place], [place] [address]Dr. Farhat Leal CRPon 11-25-2021 CRP 27.2 mg/dL Critically high <=1.0 [facility] Comment on above: Performed By: #### C MP, BNP, CRP ####[facility] Bkkvncilpo0052 [place] [address]Dr. Farhat Leal PROF 14(COMP METB)on 022 Albumin [Mass/Vol] 1.5 g/dL Critically low 3.4-5.0 [facility] Comment on above: Performed By: #### C MP, BNP, CRP ####[facility] Vqueujyucg2949 [place] [address]Dr. Farhat Leal Albumin/Globulin [Mass ratio] 0.4 {ratio} Normal [facility] Comment on above: Performed By: #### C MP, BNP, CRP ####[facility] Jsweiaeltt4067 [place] [address]Dr. Farhat Leal ALP [Catalytic activity/Vol] 86 U/L Normal 46-116 [facility] Comment on above: Performed By: #### C MP, BNP, CRP ####[facility] Drthiyhune7631 [place] [address]Dr. Madelynlorri Leal ALT [Catalytic activity/Vol] 34 U/L Normal 16-63 [facility] Comment on above: Performed By: #### C MP, BNP, CRP ####[facility] Qzrdorbdqz54[address] [place], [place] [address]Dr. Farhat Leal Anion gap [Moles/Vol] 17.8 mmol/L Normal [facility] Comment on above: Performed By: #### C MP, BNP, CRP ####[facility] Eetdwzndol697[address] [place], [place] [address]Dr. Madelynlorri Leal AST [Catalytic activity/Vol] 48 U/L Critically high 15-37 [facility] Comment on above: Performed By: #### C MP, BNP, CRP ####[facility] Xsvebtxwzs478[address] [place], [place] [address]Dr. Madelynlorri Leal Bilirubin [Mass/Vol] 0.8 mg/dL Normal 0.2-1.0 [facility] Comment on above: Performed By: #### C MP, BNP, CRP ####[facility] Bziayrpypc134[address] [place], [place] [address]Dr. Farhat Leal Calcium [Mass/Vol] 8.3 mg/dL Critically low 8.5-10.1 [facility] Comment on above: Performed By: #### C MP, BNP, CRP ####[facility] Arqgukunbc497[address] [place], [place] [address]Dr. Farhat Leal Chloride [Moles/Vol] 97 mmol/L Critically low 98-107 [facility] Comment on above: Performed By: #### C MP, BNP, CRP ####[facility] Jslvawgmcj7645 [place] [address]Dr. Farhat Leal CO2 [Moles/Vol] 23.0 mmol/L Normal 21.0-32.0 [facility] Comment on above: Performed By: #### C MP, BNP, CRP ####[facility] Uxlwjvxyrt0102 [place] [address]Dr. Farhat Leal Creatinine [Mass/Vol] 1.68 mg/dL Critically high 0.70-1.30 [facility] Comment on above: Performed By: #### C MP, BNP, CRP ####[facility] Bdabypxoau124[address] [place], [place] [address]Dr. Farhat Leal EGFR-AF [place] 48 mL/min/1.73m2 Critically low >=60 [facility] Comment on above: Performed By: #### C MP, BNP, CRP ####[facility] Qasgmqopgy55[address] [place], [place] [address]Dr. Farhat Leal EGFR-NON AF [place] 40 mL/min/1.73m2 Critically low >=60 [facility] Comment on above: Performed By: #### C MP, BNP, CRP ####[facility] Dhxsecnecc725[address] [place], [place] [address]Dr. Farhat Leal Globulin (S) [Mass/Vol] 3.9 g/dL Normal [facility] Comment on above: Performed By: #### C MP, BNP, CRP ####[facility] Jdenmaoaoj12[address] [place], [place] [address]Dr. Farhat Leal Glucose [Mass/Vol] 282 mg/dL Critically high 74-106 T [facility] Comment on above: Performed By: #### C MP, BNP, CRP ####[facility] Wnzgnpppjx807[address] [place], [place] [address]Dr. Farhat Leal Potassium [Moles/Vol] 4.8 mmol/L Normal 3.5-5.1 [facility] Comment on above: Performed By: #### C MP, BNP, CRP ####[facility] Ghvwpfzkaa46[address] [place], [place] [address]Dr. Farhat Leal Protein [Mass/Vol] 5.4 g/dL Critically low 6.4-8.2 [facility] Comment on above: Performed By: #### C MP, BNP, CRP ####[facility] Xozlhxixmx2378 [place] [address]Dr. Farhat Leal Sodium [Moles/Vol] 133 mmol/L Critically low 136-145 Th [facility] Comment on above: Performed By: #### C MP, BNP, CRP ####[facility] Elthpzauoq1322 [place] [address]Dr. Farhat Leal Urea nitrogen [Mass/Vol] 40.0 mg/dL Critically high 7.0-18.0 [facility] Comment on above: Performed By: #### C MP, BNP, CRP ####[facility] Vreiunsbcy0338 [place] [address]Dr. Farhat Leal Urea nitrogen/Creatinine [Mass ratio] 23.8 mg/mg Normal [facility] Comment on above: Performed By: #### C MP, BNP, CRP ####[facility] Rwimbuynkt[address] [place], [place] [address]Dr. Farhat Leal PROTIMEon 11-25-2021 INR Coag (PPP) [Relative time] 1.48 {INR} Normal [facility] Comment on above: Performed By: #### P T ####[facility] Rnundpbspq7[address] [place], [place] [address]Dr. Farhat Leal INR GUIDELINES SEE BELOW Normal [facility] Comment on above: Result Comment: MALINA RED INR: 2.0 - 3.0 CONDITIONS NOT LISTED BELOW 2.5 - 3.5 FOR PROSTHETIC HEART VALVE REPLACEMENT 2.5 - 3.5 RECURRENT THROMBOSIS Performed By: #### P T ####[facility] Ukctdsaazx207[address] [place], [place] [address]Dr. Farhat Leal PT Coag (PPP) [Time] 15.6 s Critically high 9.0-11.6 [facility] Comment on above: Performed By: #### P T ####[facility] Rlwcbfyhaa[address] [place], [place] [address]Dr. Farhat Leal SED RATE WESTERGRENon 2021 SED RATE 76 mm/hr Critically high <=20 [facility] Comment on above: Performed By: #### S EDR ####[facility] Deeonruwls[address] [place], [place] [address]Dr. Farhat Leal BNPon 11-24-2021 Natriuretic peptide B (Bld) [Mass/Vol] 79740.0 pg/mL Critically high <=1,800.0 [facility] Comment on above: Performed By: #### B [employer]ID SYSTEMS ARCHITECT, CMP, CRP ####[facility] Cvthdqattm[address] [place], [place] [address]Dr. Farhat Leal CBC AUTO DIFFon 11-24-2021 BASO # 0.0 103/ul Normal 0.0-0.1 [facility] Comment on above: Performed By: #### C BC ####[facility] Ljdtruurkm[address] [place], [place] [address]Dr. Farhat Leal Basophils/100 WBC (Bld) 0.3 % Normal 0.2-2.0 [facility] Comment on above: Performed By: #### C BC ####[facility] Lqqudtircn[address] [place], [place] [address]Dr. Farhat Leal EO # 0.2 103/ul Normal 0.0-0.7 [facility] Comment on above: Performed By: #### C BC ####[facility] Klumsjklfp759[address] [place], [place] [address]Dr. Farhat Leal Eosinophils/100 WBC (Bld) 1.2 % Normal 0.9-7.0 [facility] Comment on above: Performed By: #### C BC ####[facility] Qnopyieskc90[address] [place], [place] [address]Dr. Farhat Leal Erythrocyte distribution width (RBC) [Ratio] 13.5 % Normal 11.0-15.0 [facility] Comment on above: Performed By: #### C BC ####[facility] Wesmgujrde475[address] [place], [place] [address]Dr. Farhat Leal Hematocrit (Bld) [Volume fraction] 31.1 % Critically low 42.0-54.0 [facility] Comment on above: Performed By: #### C BC ####[facility] Tbyidjbdiq1644 [place] [id number]. Farhat Leal Hemoglobin (Bld) [Mass/Vol] 10.0 g/dL Critically low 14.0-18.0 [facility] Comment on above: Performed By: #### C BC ####[facility] Hngpxqwwaq9181 [place] [id number]. Farhat Leal IG # 0.13 10e3/ul Critically high 0.00-0.03 [facility] Comment on above: Performed By: #### C BC ####[facility] Bphdrypmky8775 [place] [id number]. Farhat Leal IG % 1.0 % Critically high 0.0-0.5 [facility] Comment on above: Performed By: #### C BC ####[facility] Lkbmbimuab2437 [place] [address]DrSkylar Farhat Leal LYMPH # 0.7 103/ul Critically low 1.2-3.8 [facility] Comment on above: Performed By: #### C BC ####[facility] Vfrfqdskks8067 [place] [address]Dr. Farhat Leal Lymphocytes/100 WBC (Bld) 4.9 % Critically low 20.5-60.0 [facility] Comment on above: Performed By: #### C BC ####[facility] Qehecnikog2051 [place] [address]Dr. Farhat Leal MANUAL DIFF REQ NO Normal [facility] Comment on above: Performed By: #### C BC ####[facility] Gakqutvpzb0481 [place] [phone]. Farhat Leal MCH (RBC) [Entitic mass] 29.6 pg Normal 25.9-34.0 [facility] Comment on above: Performed By: #### C BC ####[facility] Ssrtpbecsi0486 [place] [phone]. Farhat Leal MCHC (RBC) [Mass/Vol] 32.2 g/dL Normal 29.9-35.2 [facility] Comment on above: Performed By: #### C BC ####[facility] Yapevcrovy9206 [place] [phone]. Farhat Leal MCV (RBC) [Entitic vol] 92.0 fL Normal 80.0-94.0 [facility] Comment on above: Performed By: #### C BC ####[facility] Gyjkkvasnc7811 [place] [phone] Farhat Leal MONO # 1.3 103/ul Critically high 0.3-0.8 [facility] Comment on above: Performed By: #### C BC ####[facility] Kelqqllprg5605 [place] [phone]. Farhat Elvis Monocytes/100 WBC (Bld) 9.6 % Normal 1.7-12.0 [facility] Comment on above: Performed By: #### C BC ####[facility] Vfhnpnkvqk[address] [place], [place] [address]Dr. Farhat Leal NEUT # 11.2 103/ul Critically high 1.4-6.5 [facility] Comment on above: Performed By: #### C BC ####[facility] Nfejuhnwgw82[address] [place] [id number]. Farhat Elvis Neutrophils/100 WBC (Bld) 83.0 % Critically high 43.0-75.0 [facility] Comment on above: Performed By: #### C BC ####[facility] Dncmieoowa3865 [place] [phone]. Farhat Elvis Platelet mean volume (Bld) [Entitic vol] 9.5 fL Normal 9.5-13.5 [facility] Comment on above: Performed By: #### C BC ####[facility] Jbwgkcnkjr6102 [place] [phone]. Farhat Elvis PLT 395 103/ul Normal 150-450 [facility] Comment on above: Performed By: #### C BC ####[facility] Zctinyljgl4875 [place] [phone] Leal RBC 3.38 106/ul Critically low 4.70-6.10 [facility] Comment on above: Performed By: #### C BC ####[facility] Luxgqgqspw2399 [place], [place] [address]Cx. Farhat Leal WBC 13.4 103/ul Critically high 4.0-11.0 [facility] Comment on above: Performed By: #### C BC ####[facility] Uabbvedkpu0067 [place], [place] [address]Xs. Farhat Leal CRPon 11-24-2021 CRP 27.8 mg/dL Critically high <=1.0 [facility] Comment on above: Performed By: #### B RFID SYSTEMS ARCHITECT, CMP, CRP ####[facility] Czvmjhtmme8596 [place], [place] [address]Kd. Farhat Leal CULTURE ANAEROBICon 11-25-19 22 CULTURE ANAEROBIC Culture Observations : NO GROWTH OF ANAEROBES AT 72 HOURS. [facility] Comment on above: Performed By: #### A NACX ####[facility] Dzufoarrdg4451 [place] [phone]. Farhat Leal CULTURE ANAEROBIC Culture Observations : NO GROWTH OF ANAEROBES AT 72 HOURS. [facility] Comment on above: Performed By: #### A NACX ####[facility] Ymwjpckjem8823 [place] [phone]. Farhat Leal CULTURE ANAEROBIC Culture Observations : No growth of anaerobes at 72 hours. [facility] Comment on above: Performed By: #### A NACX ####[facility] Cxnvbkgsnq4565 [place] [phone]. Farhat Leal CULTURE ANAEROBIC Culture Observations : No growth of anaerobes at 72 hours. [facility] Comment on above: Performed By: #### A NACX ####[facility] Fxvwxexcir9636 [place] [phone]. Farhat Leal CULTURE URINEon 11-24-2021 CULTURE URINE Culture Observations : NO GROWTH. [facility] Comment on above: Performed By: #### U RCX ####[facility] Ihgjdwjfum8220 [place] [phone]. Farhat Leal ECHOCARDIO M/2D COMPLETEon 1 0-10-2022 ECHOCARDIO M/2D COMPLETE Normal [facility] ER URINE PROFILEon 2 Bilirubin Ql (U) Negative Normal NEGATIVE [facility] Comment on above: Performed By: #### E RUR ####[facility] Mwkenuneic[address] [place], [place] [address]Dr. Farhat Leal Clarity (U) CLEAR Normal CLEAR [facility] Comment on above: Performed By: #### E RUR ####[facility] Crfujuohpw807[address] [place], [place] [address]Dr. Farhat Leal Color (U) YELLOW Normal YELLOW [facility] Comment on above: Performed By: #### E RUR ####[facility] Vwynvacoja238[address] [place], [place] [address]Dr. Farhat Leal ERUAHD A micrscopic examination will be performed if indicated. Normal [facility] Comment on above: Performed By: #### E RUR ####[facility] Wbwyoxkkak474[address] [place], [place] [address]Dr. Farhat Leal Glucose Ql (U) Negative Normal NEGATIVE The [facility] Comment on above: Performed By: #### E RUR ####[facility] Dpituzvpaw79[address] [place], [place] [address]Dr. Farhat Leal Hemoglobin Ql (U) Negative Normal NEGATIVE The [facility] Comment on above: Performed By: #### E RUR ####[facility] Wpjfhaxlay254[address] [place], [place] [address]Dr. Farhat Leal Ketones Ql (U) TRACE Abnormal NEGATIVE [facility] Comment on above: Performed By: #### E RUR ####[facility] Edblngjyll102[address] [place], [place] [address]Dr. Farhat Leal LEUKOCYTES Negative Normal NEGATIVE [facility] Comment on above: Performed By: #### E RUR ####[facility] Kogmjyfxdi469[address] [place], [place] [address]Dr. Farhat Leal Nitrite Ql (U) Negative Normal NEGATIVE [facility] Comment on above: Performed By: #### E RUR ####[facility] Brxidrkklz450[address] [place], [place] [address]DrSkylar Leal pH (U) 5.5 [pH] Normal 5-9 [facility] Comment on above: Performed By: #### E RUR ####[facility] Ynnwnkiegh460[address] [place], [place] [address]Dr. Farhat Leal SPEC GRAVITY 1.015 Normal 1.005-<=1.02 5 [facility] Comment on above: Performed By: #### E RUR ####[facility] Uoailikxbn60[address] [place], [place] [address]Dr. Farhat Leal UA PROTEIN Negative Normal NEGATIVE/ TRACE [facility] Comment on above: Performed By: #### E RUR ####[facility] Ypbozwyeej[address] [place], [place] [address]Dr. Farhat Leal UR MICRO IND NOT INDICATED Normal [facility] Comment on above: Performed By: #### E RUR ####[facility] Mahaechibt[address] [place], [place] [address]Dr. Farhat Leal Urobilinogen Qn (U) 0.2 {Boyd'U}/dL Normal 0.2 - 1. 0 [facility] Comment on above: Performed By: #### E RUR ####[facility] Npigyxmtdp[address] [place], [place] [address]Dr. Farhat Leal GRAM STAINon 11-24-2021 DIPHTHEROIDS Normal [facility] Comment on above: Performed By: #### G STAIN ####[facility] Pevnzarios59[address] [place], [place] [address]Dr. Farhat Leal EPITHELIALS Normal [facility] Comment on above: Performed By: #### G STAIN ####[facility] Yqhgrzlaxg[address] [place], [place] [address]Dr. Farhat Leal FUNGAL ELEMENTS Normal [facility] Comment on above: Performed By: #### G STAIN ####[facility] Ryonuhqnvw068[address] [place], [place] [address]Dr. Farhat Leal GRAM NEG BACILLI Normal [facility] Comment on above: Performed By: #### G STAIN ####[facility] Qoomialxjp353[address] [place], [place] [address]Dr. Farhat Leal GRAM NEG DIPPLOCOCCI Normal [facility] Comment on above: Performed By: #### G STAIN ####[facility] Pxbnqzcjxi1858 [place] [address]Dr. Farhat Leal GRAM POS BACILLI Normal [facility] Comment on above: Performed By: #### G STAIN ####[facility] Orgqlloscj5406 [place] [address]Dr. Farhat Leal GRAM POSITIVE COCCI FEW Normal [facility] Comment on above: Performed By: #### G STAIN ####[facility] Kutomsumyq55[address] [place], [place] [address]Dr. Farhat Leal GRAM STAIN SOURCE RT ACHILLES TENDON Normal [facility] Comment on above: Performed By: #### G STAIN ####[facility] Ergvodhybc[address] [place], [place] [address]Dr. Farhat Leal GS_DIPTH Normal [facility] Comment on above: Performed By: #### G STAIN ####[facility] Ffpxbwpjlf[address] [place], [place] [address]Dr. Farhat Leal WBC RARE Normal [facility] Comment on above: Performed By: #### G STAIN ####[facility] Xopqhtnxly104[address] [place], [place] [address]Dr. Farhat Leal COMMENTS NO ORGANISMS OBSERVED Normal [facility] Comment on above: Performed By: #### G STAIN ####[facility] Lvwznljdal[address] [place], [place] [address]Dr. Farhat Leal DIPHTHEROIDS Normal [facility] Comment on above: Performed By: #### G STAIN ####[facility] Rlftxfseyb0857 [place] [address]Dr. Farhat Leal EPITHELIALS Normal [facility] Comment on above: Performed By: #### G STAIN ####[facility] Wxurkfxsii[address] [place], [place] [address]Dr. Farhat Leal FUNGAL ELEMENTS Normal [facility] Comment on above: Performed By: #### G STAIN ####[facility] Xsuoudkvyj[address] [place], [place] [address]Dr. Farhat Leal GRAM NEG BACILLI Normal [facility] Comment on above: Performed By: #### G STAIN ####[facility] Acvkmurbby7939 [place] [phone]. Farhat Leal GRAM NEG DIPPLOCOCCI Normal [facility] Comment on above: Performed By: #### G STAIN ####[facility] Pmrzbtitpc8385 [place] [phone]. Farhat Leal GRAM POS BACILLI Normal [facility] Comment on above: Performed By: #### G STAIN ####[facility] Vzscngeowo4099 [place] [address]Dr. Farhat Leal GRAM POSITIVE COCCI Normal [facility] Comment on above: Performed By: #### G STAIN ####[facility] Lkmujvmlnw5516 [place] [address]Dr. Farhat Leal GRAM STAIN SOURCE RT CALCANEOUS Normal [facility] Comment on above: Performed By: #### G STAIN ####[facility] Cfltwoyxvh[address] [place], [place] [address]Dr. Farhat Leal GS_DIPTH Normal [facility] Comment on above: Performed By: #### G STAIN ####[facility] Pdfckcszkw0607 [place] [address]Dr. Farhat Leal WBC RARE Normal [facility] Comment on above: Performed By: #### G STAIN ####[facility] Xfqccxbbvu1735 [place] [address]Dr. Farhat Leal DIPHTHEROIDS Normal [facility] Comment on above: Performed By: #### G STAIN ####[facility] Kaubpwzugx8810 [place] [address]Dr. Farhat Leal EPITHELIALS Normal [facility] Comment on above: Performed By: #### G STAIN ####[facility] Lgvgrgmqvw0959 [place] [address]Dr. Farhat Leal FUNGAL ELEMENTS Normal [facility] Comment on above: Performed By: #### G STAIN ####[facility] Qvwlzfqrxv4129 [place] [address]Dr. Farhat Leal GRAM NEG BACILLI FEW Normal [facility] Comment on above: Performed By: #### G STAIN ####[facility] Qblygpwllj8013 [place] [phone]. Farhat Leal GRAM NEG DIPPLOCOCCI Normal [facility] Comment on above: Performed By: #### G STAIN ####[facility] Yxdkrsgbfr7266 [place] [address]Dr. Farhat Leal GRAM POS BACILLI Normal [facility] Comment on above: Performed By: #### G STAIN ####[facility] Olczbldiaz7835 [place] [address]Dr. Farhat Leal GRAM POSITIVE COCCI FEW Normal [facility] Comment on above: Performed By: #### G STAIN ####[facility] Rmqmjvnckx6252 [place] [address]Dr. Farhat Leal GRAM STAIN SOURCE #2 Rt foot abscess Normal [facility] Comment on above: Performed By: #### G STAIN ####[facility] Gokpgraiml3374 [place] [address]Dr. Farhat Leal GS_DIPTH Normal [facility] Comment on above: Performed By: #### G STAIN ####[facility] Jfxnnhjcoc7[address] [place], [place] [address]Dr. Farhat Leal WBC RARE Normal [facility] Comment on above: Performed By: #### G STAIN ####[facility] Nmonympmxv9580 [place] [address]Dr. Farhat Leal DIPHTHEROIDS Normal [facility] Comment on above: Performed By: #### G STAIN ####[facility] Qsfvioodoo2228 [place] [address]Dr. Farhat Leal EPITHELIALS Normal [facility] Comment on above: Performed By: #### G STAIN ####[facility] Hodfgjzabc4310 [place] [address]Dr. Farhat Leal FUNGAL ELEMENTS Normal [facility] Comment on above: Performed By: #### G STAIN ####[facility] Ksgtmtycsd2762 [place] [address]Dr. Farhat Leal GRAM NEG BACILLI FEW Normal [facility] Comment on above: Performed By: #### G STAIN ####[facility] Oyzbepfepw5278 [place] [address]Dr. Farhat Leal GRAM NEG DIPPLOCOCCI Normal [facility] Comment on above: Performed By: #### G STAIN ####[facility] Pucrfbqzfv9031 [place] [address]Dr. Farhat Leal GRAM POS BACILLI Normal [facility] Comment on above: Performed By: #### G STAIN ####[facility] Rnitsrqzeh3457 [place] [address]Dr. Farhat Leal GRAM POSITIVE COCCI FEW Normal [facility] Comment on above: Performed By: #### G STAIN ####[facility] Jlvsabodhc0852 [place] [address]Dr. Farhat Leal GRAM STAIN SOURCE #1 Rt foot abscess Normal [facility] Comment on above: Performed By: #### G STAIN ####[facility] Pvwqxfninq[address] [place], [place] [address]Dr. Farhat Leal GS_DIPTH Normal [facility] Comment on above: Performed By: #### G STAIN ####[facility] Adxvutsmsd054[address] [place], [place] [address]Dr. Farhat Leal WBC NONE SEEN Normal [facility] Comment on above: Performed By: #### G STAIN ####[facility] Wjhywxxpbj24[address] [place], [place] [address]Dr. Farhat Leal POINT OF CARE GLUCOSEon 11-15 Glucose [Mass/Vol] 331 mg/dL Critically high 74-106 [facility] Comment on above: Performed By: #### P OCGLUC ####[facility] Vflnkcnkru904[address] [place], [place] [address]Dr. Farhat Leal Glucose [Mass/Vol] 236 mg/dL Critically high 74-106 [facility] Comment on above: Performed By: #### P OCGLUC ####[facility] Aumtgeurst[address] [place], [place] [address]Dr. Farhat Leal PROF 14(COMP METB)on 022 Albumin [Mass/Vol] 1.6 g/dL Critically low 3.4-5.0 [facility] [place] [facility] Comment on above: Performed By: #### B RFID SYSTEMS ARCHITECT, CMP, CRP ####[facility] Eefaqouvli1657 [place] [address]Dr. Farhat Leal Albumin/Globulin [Mass ratio] 0.4 {ratio} Normal [facility] Comment on above: Performed By: #### B RFID SYSTEMS ARCHITECT, CMP, CRP ####[facility] Xdwzsnnkfx0362 [place] [address]Dr. Farhat Leal ALP [Catalytic activity/Vol] 94 U/L Normal 46-116 [facility] Comment on above: Performed By: #### B RFID SYSTEMS ARCHITECT, CMP, CRP ####[facility] Vyrqbeubyb[address] [place], [place] [address]Dr. Farhat Leal ALT [Catalytic activity/Vol] 49 U/L Normal 16-63 [facility] Comment on above: Performed By: #### B RFID SYSTEMS ARCHITECT, CMP, CRP ####[facility] Ebujlqtjvv05[address] [place], [place] [address]Dr. Farhat Leal Anion gap [Moles/Vol] 12.5 mmol/L Normal [facility] Comment on above: Performed By: #### B RFID SYSTEMS ARCHITECT, CMP, CRP ####[facility] Hehdgmshrg67[address] [place], [place] [address]Dr. Farhat Leal AST [Catalytic activity/Vol] 102 U/L Critically high 15-37 [facility] Comment on above: Performed By: #### B RFID SYSTEMS ARCHITECT, CMP, CRP ####[facility] Bkuabjchxf0037[address] [place], [place] [address]Dr. Farhat Leal Bilirubin [Mass/Vol] 0.8 mg/dL Normal 0.2-1.0 [facility] Comment on above: Performed By: #### B RFID SYSTEMS ARCHITECT, CMP, CRP ####[facility] Laipjhfymq068[address] [place], [place] [address]Dr. Farhat Leal Calcium [Mass/Vol] 8.4 mg/dL Critically low 8.5-10.1 [facility] Comment on above: Performed By: #### B RFID SYSTEMS ARCHITECT, CMP, CRP ####[facility] Avhnltnvxw527[address] [place], [place] [address]Dr. Farhat Leal Chloride [Moles/Vol] 96 mmol/L Critically low 98-107 [facility] Comment on above: Performed By: #### B RFID SYSTEMS ARCHITECT, CMP, CRP ####[facility] Qwmtbxrfim9618 [place] [address]Dr. Farhat Leal CO2 [Moles/Vol] 24.8 mmol/L Normal 21.0-32.0 [facility] Comment on above: Performed By: #### B RFID SYSTEMS ARCHITECT, CMP, CRP ####[facility] Vbebczxjli3469 [place] [address]Dr. Farhat Leal Creatinine [Mass/Vol] 1.36 mg/dL Critically high 0.70-1.30 [facility] Comment on above: Performed By: #### B RFID SYSTEMS ARCHITECT, CMP, CRP ####[facility] Tiyuwgzpzo[address] [place], [place] [address]Dr. Farhat Leal EGFR-AF [place] >60 Normal >=60 [facility] Comment on above: Performed By: #### B RFID SYSTEMS ARCHITECT, CMP, CRP ####[facility] Pkmixlizgq27[address] [place], [place] [address]Dr. Farhat Leal EGFR-NON AF [place] 51 mL/min/1.73m2 Critically low >=60 [facility] Comment on above: Performed By: #### B RFID SYSTEMS ARCHITECT, CMP, CRP ####[facility] Xgpxeqsqqq[address] [place], [place] [address]Dr. Farhat Leal Globulin (S) [Mass/Vol] 4.1 g/dL Normal [facility] Comment on above: Performed By: #### B RFID SYSTEMS ARCHITECT, CMP, CRP ####[facility] Ysyjzlstdv25[address] [place], [place] [address]Dr. Farhat Leal Glucose [Mass/Vol] 204 mg/dL Critically high 74-106 T [facility] Comment on above: Performed By: #### B RFID SYSTEMS ARCHITECT, CMP, CRP ####[facility] Vbqqcymwjo[address] [place], [place] [address]Dr. Farhat Leal Potassium [Moles/Vol] 4.3 mmol/L Normal 3.5-5.1 [facility] Comment on above: Performed By: #### B RFID SYSTEMS ARCHITECT, CMP, CRP ####[facility] Xiacpsfzon30[address] [place], [place] [address]Dr. Farhat Leal Protein [Mass/Vol] 5.7 g/dL Critically low 6.4-8.2 [facility] [place] [facility] Comment on above: Performed By: #### B RFID SYSTEMS ARCHITECT, CMP, CRP ####[facility] Axyyawdenp5778 [place] [address]Dr. Farhat Leal Sodium [Moles/Vol] 129 mmol/L Critically low 136-145 Th [facility] [place] [facility] Comment on above: Performed By: #### B RFID SYSTEMS ARCHITECT, CMP, CRP ####[facility] Rkaynhptiy1529 [place] [address]Dr. Farhat Leal Urea nitrogen [Mass/Vol] 41.0 mg/dL Critically high 7.0-18.0 [facility] Comment on above: Performed By: #### B RFID SYSTEMS ARCHITECT, CMP, CRP ####[facility] Bmtogkidte4514 [place] [address]Dr. Farhat Leal Urea nitrogen/Creatinine [Mass ratio] 30.1 mg/mg Normal [facility] Comment on above: Performed By: #### B RFID SYSTEMS ARCHITECT, CMP, CRP ####[facility] Xrfnwpubdi[address] [place], [place] [address]Dr. Farhat Leal PROTIMEon 11-24-2021 INR Coag (PPP) [Relative time] 2.20 {INR} Normal [facility] Comment on above: Performed By: #### P T ####[facility] Ajzvqsyion[address] [place], [place] [address]Dr. Farhat Leal INR GUIDELINES SEE BELOW Normal [facility] Comment on above: Result Comment: MALINA RED INR: 2.0 - 3.0 CONDITIONS NOT LISTED BELOW 2.5 - 3.5 FOR PROSTHETIC HEART VALVE REPLACEMENT 2.5 - 3.5 RECURRENT THROMBOSIS Performed By: #### P T ####[facility] Tumjavcsyu[address] [place], [place] [address]Dr. Farhat Leal PT Coag (PPP) [Time] 22.6 s Critically high 9.0-11.6 [facility] Comment on above: Performed By: #### P T ####[facility] Pjoaqzgiyr24[address] [place], [place] [address]Dr. Farhat Leal SED RATE WESTERGRENon 2021 SED RATE 80 mm/hr Critically high <=20 [facility] Comment on above: Performed By: #### S EDR ####[facility] Nyjgroxajg3479 [place] [phone]. Farhat Leal BLOOD CULTURE ID PANELon A. baumannii Not detected Normal NOT DETECTED [facility] Comment on above: Performed By: #### B CID2 ####[facility] Nxdkpxdhdf8358 [place] [phone]. Farhat Leal Bacteriodes fragilis Not detected Normal NOT DETECTED [facility] Comment on above: Performed By: #### B CID2 ####[facility] Jpgcieqmii2693 [place] [address]Dr. Farhat Elvis BCID CONTROLS PASSED Normal [facility] Comment on above: Performed By: #### B CID2 ####[facility] Wyhuyklntj3644 [place] [phone]. Madelynlorri Elvis BCIDBTHD BLOOD CULTURE BOTTLE INFORMATION Normal [facility] Comment on above: Performed By: #### B CID2 ####[facility] Hzfxbdsevu1141 [place] [phone]. Farhat Leal BCIDHD1 ANTIMICROBIAL RESISTANCE GENES Normal [facility] Comment on above: Performed By: #### B CID2 ####[facility] Ompaqgtatl[address] [place] [address]Dr. Farhat Leal BCIDHD2 SEE BELOW Normal [facility] Comment on above: Result Comment: Note : Antimicrobial resitance can occur via multiple mechanisms. A Not Detected result for the [employer] antomicrobial resistance gene assays does not indicate antimicrobial susceptibility. Subculturing is required for species identification and susceptibility testing of isolates. Performed By: #### B CID2 ####[facility] Vyewhcloec[address] [place], [place] [address]Dr. Farhat Leal BCIDHD3 Positive Normal [facility] Comment on above: Performed By: #### B CID2 ####[facility] Igxpfgipsl9772 [place] [phone]. Farhat Leal BCIDHD4 Negative Normal [facility] Comment on above: Performed By: #### B CID2 ####[facility] Ffjjfwulyj6566 [place] [address]Dr. Farhat Leal BCIDHD5 YEAST Normal [facility] Comment on above: Performed By: #### B CID2 ####[facility] Xasaaksfyx4922 [place] [address]Dr. Yilan Leal Bottle Set: Set 1 Normal [facility] Comment on above: Performed By: #### B CID2 ####[facility] Boudhnqktw7781 [place] [address]Dr. Farhat Leal Bottle: Aerobic Normal [facility] Comment on above: Performed By: #### B CID2 ####[facility] Jfwjaxubyk[address] [place], [place] [address]Dr. Farhat Leal C. neoformans/gattii Not detected Normal NOT DETECTED [facility] Comment on above: Performed By: #### B CID2 ####[facility] Rorarqpgdg[address] [place], [place] [address]Dr. Yilorri Leal Disha albicans Not detected Normal NOT DETECTED [facility] Comment on above: Performed By: #### B CID2 ####[facility] Hmbcosyvxl[address] [place], [place] [address]Dr. Farhat Leal Disha auris Not detected Normal NOT DETECTED [facility] Comment on above: Performed By: #### B CID2 ####[facility] Gnkemeyidm0035[address] [place], [place] [address]Dr. Yilorri Leal Disha glabrata Not detected Normal NOT DETECTED [facility] Comment on above: Performed By: #### B CID2 ####[facility] Atiblbbxpq30[address] [place] [address]Dr. Yilorri Leal Disha Krusei Not detected Normal NOT DETECTED The [facility] Comment on above: Performed By: #### B CID2 ####[facility] Pjvqwakqry[address] [place], [place] [address]Dr. Yilorri Leal Disha Parapsilosis Not detected Normal NOT DETECTED The [facility] Comment on above: Performed By: #### B CID2 ####[facility] Nnzxpxpmqb[address] [place], [place] [address]Dr. Farhat Leal Disha Tropicalis Not detected Normal NOT DETECTED [facility] Comment on above: Performed By: #### B CID2 ####[facility] Akxwbxkweh656[address] [place], [place] [address]Dr. Farhat Leal CTX-M Resistant Gene Not Applicable Normal NOT DETECTE D [facility] Comment on above: Performed By: #### B CID2 ####[facility] Enuxfzuock822[address] [place], [place] [address]Dr. Farhat Leal E. Cloacae complex Not detected Normal NOT DETECTED [facility] Comment on above: Performed By: #### B CID2 ####[facility] Qnormawaxl2469[address] [place], [place] [address]Dr. Farhat Leal E. faecalis Not detected Normal NOT DETECTED [facility] Comment on above: Performed By: #### B CID2 ####[facility] Lvdnwoigjz498[address] [place], [place] [address]Dr. Farhat Leal E. faecium Not detected Normal NOT DETECTED The [facility] Comment on above: Performed By: #### B CID2 ####[facility] Srxywvzlvh8824[address] [place], [place] [address]Dr. Farhat Leal Enterobacteriaceae Not detected Normal NOT DETECTED [facility] Comment on above: Performed By: #### B CID2 ####[facility] Hunwxqaqcv045[address] [place], [place] [address]Dr. Farhat Leal Escherichia coli Not detected Normal NOT DETECTED [facility] Comment on above: Performed By: #### B CID2 ####[facility] Ezpgeczxkv956[address] [place], [place] [address]Dr. Farhat Leal H. influenzae Not detected Normal NOT DETECTED [facility] Comment on above: Performed By: #### B CID2 ####[facility] Eudtlpxskg0011[address] [place], [place] [address]Dr. Farhat Leal IMP Resistant Gene Not Applicable Normal NOT DETECTED The [facility] Comment on above: Performed By: #### B CID2 ####[facility] Ohocjrqtpt9[address] [place], [place] [address]Dr. Farhat Leal K. oxytoca Not detected Normal NOT DETECTED The [facility] Comment on above: Performed By: #### B CID2 ####[facility] Ekoeiiefwb6089 [place] [address]Dr. Farhat Leal K. pneumoniae Not detected Normal NOT DETECTED [facility] Comment on above: Performed By: #### B CID2 ####[facility] Iymdktqmki9630 [place] [id number]. Farhat Leal Klebsiella aerogenes Not detected Normal NOT DETECTED [facility] Comment on above: Performed By: #### B CID2 ####[facility] Nknfukrzze305[address] [place], [place] [address]Dr. Farhat Leal KPC Resistant Gene Not Applicable Normal NOT DETECTED [facility] Comment on above: Performed By: #### B CID2 ####[facility] Oogulnvnzh9214[address] [place], [place] [address]Dr. Farhat Leal List. monocytogenes Not detected Normal NOT DETECTED [facility] Comment on above: Performed By: #### B CID2 ####[facility] Merxfykvvn8717[address] [place], [place] [address]Dr. Farhat Leal Mcr-1 Resistant Gene Not Applicable Normal NOT DETECTE D [facility] Comment on above: Performed By: #### B CID2 ####[facility] Wfkeanequw554[address] [place], [place] [address]Dr. Farhat Leal mecA/C Not Applicable Normal NOT DETECTED [facility] Comment on above: Performed By: #### B CID2 ####[facility] Ibifmphggz4772 [place] [address]Dr. Farhat Leal mecA/C MREJ Detected Abnormal NOT DETECTED [facility] Comment on above: Performed By: #### B CID2 ####[facility] Mhowcqkkor1115[address] [place], [place] [address]Dr. Farhat Leal N. meningitidis Not detected Normal NOT DETECTED The [facility] Comment on above: Performed By: #### B CID2 ####[facility] Wnajuscaee914[address] [place], [place] [address]Dr. Farhat Leal NDM Resistant Gene Not Applicable Normal NOT DETECTED The [facility] Comment on above: Performed By: #### B CID2 ####[facility] Nnremftgdj946[address] [place], [place] [address]Dr. Farhat Leal Oxa-48-like Not Applicable Normal NOT DETECTED [facility] Comment on above: Performed By: #### B CID2 ####[facility] Fqsjytcqfg735[address] [place], [place] [address]Dr. Farhat Leal Proteus Not detected Normal NOT DETECTED The [facility] Comment on above: Performed By: #### B CID2 ####[facility] Xmwzarscey044[address] [place], [place] [address]Dr. Farhat Leal Pseud. aeruginosa Not detected Normal NOT DETECTED The [facility] Comment on above: Performed By: #### B CID2 ####[facility] Sjgbvdlkfx701[address] [place], [place] [address]Dr. Farhat Leal S. maltophilia Not detected Normal NOT DETECTED The [facility] Comment on above: Performed By: #### B CID2 ####[facility] Mlpdsizdfj230[address] [place], [place] [address]Dr. Farhat Leal Salmonella Not detected Normal NOT DETECTED The [facility] Comment on above: Performed By: #### B CID2 ####[facility] Bcueflinbr8833[address] [place], [place] [address]Dr. Farhat Leal Seratia marcescens Not detected Normal NOT DETECTED [facility] Comment on above: Performed By: #### B CID2 ####[facility] Jeypwsqyca816[address] [place], [place] [address]Dr. Farhat Leal Site: Rt Hand Normal The [facility] Comment on above: Performed By: #### B CID2 ####[facility] Ppcvphqjdw696[address] [place], [place] [address]Dr. Farhat Leal Staph. aureus Detected Abnormal NOT DETECTED The [facility] Comment on above: Performed By: #### B CID2 ####[facility] Ryckedgbqr905[address] [place], [place] [address]Dr. Farhat Leal Staph. epidermidis Not detected Normal NOT DETECTED [facility] Comment on above: Performed By: #### B CID2 ####[facility] Ctesjectna5311[address] [place], [place] [address]Dr. Farhat Leal Staph. lugdunensis Not detected Normal NOT DETECTED [facility] Comment on above: Performed By: #### B CID2 ####[facility] Ormhapwget59[address] [place], [place] [address]Dr. Farhat Leal Staphylococcus Detected Abnormal NOT DETECTED The [facility] Comment on above: Performed By: #### B CID2 ####[facility] Zeemsohklw059[address] [place], [place] [address]Dr. Farhat Leal Strep. agalactiae Not detected Normal NOT DETECTED [facility] Comment on above: Performed By: #### B CID2 ####[facility] Ydnwhsvwdg5565[address] [place], [place] [address]Dr. Farhat Leal Strep. pneumoniae Not detected Normal NOT DETECTED The [facility] Comment on above: Performed By: #### B CID2 ####[facility] Sgkinozyjf4069[address] [place], [place] [address]Dr. Farhat Leal Strep. pyogenes Not detected Normal NOT DETECTED [facility] Comment on above: Performed By: #### B CID2 ####[facility] Jqigjkuqtn119[address] [place], [place] [address]Dr. Farhat Leal Streptococcus Not detected Normal NOT DETECTED [facility] Comment on above: Performed By: #### B CID2 ####[facility] Zokermbgti057[address] [place], [place] [address]Dr. Farhat Leal Teodoro/B Resist. Gene Not Applicable Normal NOT DETECTED The [facility] Comment on above: Performed By: #### B CID2 ####[facility] Nnookaqosf723[address] [place], [place] [address]Dr. Farhat Leal VIM Resistant Gene Not Applicable Normal NOT DETECTED The [facility] Comment on above: Performed By: #### B CID2 ####[facility] Ejolofiufa71[address] [place], [place] [address]Dr. Farhat Leal BNPon 11-23-2021 Natriuretic peptide B (Bld) [Mass/Vol] 56556.0 pg/mL Critically high <=1,800.0 The [facility] Comment on above: Performed By: #### C MP, CMADM, BNP ####[facility] Gtvxvkhnns8[address] [place] [address]Dr. Farhat Leal CARDIAC AMANDA ADMITon 022 CK [Catalytic activity/Vol] 41 U/L Normal 39-308 [facility] Comment on above: Performed By: #### C MP, CMADM, BNP ####[facility] Zstrnhxcqx1070 [place] [address]Dr. Farhat Leal CK.MB [Mass/Vol] 0.98 ng/mL Normal <=3.60 The [facility] Comment on above: Performed By: #### C MP, CMADM, BNP ####[facility] Vsaujcnrkt8[address] [place] [address]Dr. Farhat Leal HSTROP 30.1 pg/mL Normal 4.0-76.1 The [facility] Comment on above: Result Comment: CUT- OFF POINTS HAVE BEEN ESTABLISHED BASED ON THE FOURTH UNIVERSAL DEFINITIONS OF MYOCARDIALINFARCTION. THE UPPER REFERENCE LIMIT (URL) OF TROPONIN, DEFINED THE 99TH PERCENTILE OFcTnI DISTRIBUTION IN A REFERENCE POPULATION, HAS BEEN CONFIRMED THE DECISION THRESHOLDFOR CT DIAGNOSIS. Performed By: #### C MP, CMADM, BNP ####[facility] Obievahsvk4992 [place] [address]Dr. Madelynlorri Leal VALERIA 160 ng/mL Critically high 16-96 The [facility] Comment on above: Performed By: #### C MP, CMADM, BNP ####[facility] Zysyakxekw9192 [place] [address]Dr. Farhat Elvis CBC AUTO DIFFon 11-23-2021 BASO # 0.0 103/ul Normal 0.0-0.1 [facility] Comment on above: Performed By: #### C BC ####[facility] Soxiskyegs7425 [place] [address]Dr. Farhat Leal Basophils/100 WBC (Bld) 0.2 % Normal 0.2-2.0 [facility] Comment on above: Performed By: #### C BC ####[facility] Vhgcvdftxu9646 [place] [address]Dr. Farhat Leal EO # 0.0 103/ul Normal 0.0-0.7 [facility] Comment on above: Performed By: #### C BC ####[facility] Hppsvszgoi5111 [place] [address]Dr. Farhat Leal Eosinophils/100 WBC (Bld) 0.1 % Critically low 0.9-7.0 The [facility] Comment on above: Performed By: #### C BC ####[facility] Jlnhvqnuhj1576 [place] [address]Dr. Farhat Leal Erythrocyte distribution width (RBC) [Ratio] 13.4 % Normal 11.0-15.0 The [facility] Comment on above: Performed By: #### C BC ####[facility] Uoqywbumyx[address] [place], [place] [address]Dr. Farhat Leal Hematocrit (Bld) [Volume fraction] 31.6 % Critically low 42.0-54.0 The [facility] Comment on above: Performed By: #### C BC ####[facility] Crcytvqvrl708[address] [place], [place] [address]Dr. Farhat Leal Hemoglobin (Bld) [Mass/Vol] 10.4 g/dL Critically low 14.0-18.0 The [facility] Comment on above: Performed By: #### C BC ####[facility] Bpfckqwjce[address] [place], [place] [address]Dr. Farhat Leal IG # 0.11 10e3/ul Critically high 0.00-0.03 [facility] Comment on above: Performed By: #### C BC ####[facility] Gsaorkijyy0753 [place] [address]Dr. Farhat Leal IG % 0.7 % Critically high 0.0-0.5 [facility] Comment on above: Performed By: #### C BC ####[facility] Jmuocbubit014[address] [place], [place] [address]Dr. Farhat Leal LYMPH # 0.5 103/ul Critically low 1.2-3.8 The [facility] Comment on above: Performed By: #### C BC ####[facility] Trsyvkxemo0162 [place] [id number]. Farhat Elvis Lymphocytes/100 WBC (Bld) 2.8 % Critically low 20.5-60.0 [facility] Comment on above: Performed By: #### C BC ####[facility] Kevubactpt0197 [place] [address]Dr. Madelynlorri Leal MANUAL DIFF REQ NO Normal [facility] Comment on above: Performed By: #### C BC ####[facility] Fqvkawhovs5499 [place] [address]Dr. Madelynlorri Leal MCH (RBC) [Entitic mass] 29.8 pg Normal 25.9-34.0 [facility] Comment on above: Performed By: #### C BC ####[facility] Nabjglucdt22[address] [place], [place] [address]Dr. Farhat Leal MCHC (RBC) [Mass/Vol] 32.9 g/dL Normal 29.9-35.2 [facility] Comment on above: Performed By: #### C BC ####[facility] Vioniiwqrx8667 [place] [address]Dr. Farhat Leal MCV (RBC) [Entitic vol] 90.5 fL Normal 80.0-94.0 [facility] Comment on above: Performed By: #### C BC ####[facility] Yubzyiitkr8924[address] [place], [place] [address]Dr. Farhat Leal MONO # 1.3 103/ul Critically high 0.3-0.8 [facility] Comment on above: Performed By: #### C BC ####[facility] Vhrtfkznod8451 [place] [address]Dr. Farhat Leal Monocytes/100 WBC (Bld) 8.3 % Normal 1.7-12.0 [facility] Comment on above: Performed By: #### C BC ####[facility] Xmfdslvxpt375[address] [place], [place] [address]Dr. Farhat Leal NEUT # 13.9 103/ul Critically high 1.4-6.5 The [facility] Comment on above: Performed By: #### C BC ####[facility] Tvbeaorlue7[address] [place], [place] [address]Wq. Farhat Leal Neutrophils/100 WBC (Bld) 87.9 % Critically high 43.0-75.0 [facility] Comment on above: Performed By: #### C BC ####[facility] Ggkiovtsry3629 [place], [place] [address]Oa. Farhat Leal Platelet mean volume (Bld) [Entitic vol] 9.3 fL Critically low 9.5-13.5 [facility] Comment on above: Performed By: #### C BC ####[facility] Elhgrlvjfq5131 [place], [place] [address]Tf. Farhat Leal PLT 390 103/ul Normal 150-450 [facility] Comment on above: Performed By: #### C BC ####[facility] Tbtqlizpfm6282 [place], [place] [address]To. Farhat Leal RBC 3.49 106/ul Critically low 4.70-6.10 [facility] Comment on above: Performed By: #### C BC ####[facility] Bwwqkkzdpg0994 [place], [place] [address]Ig. Farhat Leal WBC 15.9 103/ul Critically high 4.0-11.0 [facility] Comment on above: Performed By: #### C BC ####[facility] Eotknhnwwt7356 [place], [place] [address]f. Far[address] Le[address] CT HEAD WO CONon 11-23-2021 CT HEAD WO CON Normal The [facility] CULTURE BLOODon 11-23-2021 Microscopic examination of blood, culture Culture Observations: NO GROWTH AT 5 DAYS. Normal [facility] Comment on above: Performed By: #### B LDCX2 ####[facility] Ggbhfuqtdq8707 [place] [id number]. Farhat Leal [facility] ([facility]on SARS-CoV-2 (COVID-19) RNA JOSH+probe Ql (Unsp spec) Not detected Normal NOT DETECTED [facility] Comment on above: Result Comment: [...] for this test is supported by the [place] of Health and Human Service's declaration that [...] be used). Performed By: #### C VDTBH ####[facility] Iklwxjedgx427[address] [place], [place] [address]DrSkylar Leal LACTATE/LACTIC ACIDon 2021 Lactate [Moles/Vol] 1.3 mmol/L Normal 0.4-1.9 [facility] Comment on above: Performed By: #### L ACT ####[facility] Nlmupabycm66[address] [place], [place] [address]DrSkylar Leal Lactate [Moles/Vol] 1.3 mmol/L Normal 0.4-1.9 [facility] Comment on above: Performed By: #### L ACT ####[facility] Yxdapukpcq16[address] [place], [place] [address]DrSkylar Leal POINT OF CARE GLUCOSEon Glucose [Mass/Vol] 252 mg/dL Critically high 74-106 T [facility] Comment on above: Performed By: #### P OCGLUC ####[facility] Gzztqzqcci[address] [place], [place] [address]DrSkylar Leal PROF 14(COMP METB)on 022 Albumin [Mass/Vol] 1.6 g/dL Critically low 3.4-5.0 [facility] Comment on above: Performed By: #### C MP, CMADM, BNP ####[facility] Xcaojzbxey13[address] [place], [place] [address]DrSkylar Leal Albumin/Globulin [Mass ratio] 0.4 {ratio} Normal [facility] Comment on above: Performed By: #### C FATMATA MARROQUINDM, BNP ####[facility] Bnubgpargn5730 [place] [address]Dr. Farhat Leal ALP [Catalytic activity/Vol] 98 U/L Normal 46-116 [facility] Comment on above: Performed By: #### C MP CMADM, BNP ####[facility] Ddobzlegkf1626 [place] [address]Dr. Farhat Leal ALT [Catalytic activity/Vol] 52 U/L Normal 16-63 [facility] Comment on above: Performed By: #### C CARA CMADM, BNP ####[facility] Xbpbskozsf9529 [place] [address]Dr. Madelynlorri Elvis Anion gap [Moles/Vol] 9.8 mmol/L Normal [facility] Comment on above: Performed By: #### C CARA CMADM, BNP ####[facility] Djopbmkauz1510 [place] [address]Dr. Farhat Leal AST [Catalytic activity/Vol] 122 U/L Critically high 15-37 [facility] Comment on above: Performed By: #### C CARA CMADM, BNP ####[facility] Orpkmqzbjl1692 [place] [address]Dr. Farhat Elvis Bilirubin [Mass/Vol] 0.7 mg/dL Normal 0.2-1.0 [facility] Comment on above: Performed By: #### C CARA CMADM, BNP ####[facility] Duseweyonk1349 [place] [address]Dr. Farhat Elvis Calcium [Mass/Vol] 8.6 mg/dL Normal 8.5-10.1 [facility] Comment on above: Performed By: #### C MP CMADM, BNP ####[facility] Mqarhlqzgj8506 [place] [address]Dr. Farhat Leal Chloride [Moles/Vol] 95 mmol/L Critically low 98-107 [facility] Comment on above: Performed By: #### C CARA CMADM, BNP ####[facility] Tskceklcwu8737 [place] [address]Dr. Farhat Leal CO2 [Moles/Vol] 29.6 mmol/L Normal 21.0-32.0 [facility] Comment on above: Performed By: #### C MP, CMADM, BNP ####[facility] Advjefnylt7058 [place] [address]Dr. Farhat Leal Creatinine [Mass/Vol] 1.49 mg/dL Critically high 0.70-1.30 [facility] Comment on above: Performed By: #### C MP, CMADM, BNP ####[facility] Xnkksmeztx1174 [place] [address]Dr. Farhat Leal EGFR-AF [place] 55 mL/min/1.73m2 Critically low >=60 [facility] Comment on above: Performed By: #### C MP, CMADM, BNP ####[facility] Rsudhzancv7301 [place] [address]Dr. Farhat Leal EGFR-NON AF [place] 46 mL/min/1.73m2 Critically low >=60 [facility] Comment on above: Performed By: #### C MP, CMADM, BNP ####[facility] Uhprtqmrvd48[address] [place], [place] [address]Dr. Farhat Leal Globulin (S) [Mass/Vol] 4.3 g/dL Normal [facility] Comment on above: Performed By: #### C MP, CMADM, BNP ####[facility] Tblowppeor6471 [place] [address]Dr. Farhat Leal Glucose [Mass/Vol] 213 mg/dL Critically high 74-106 T [facility] Comment on above: Performed By: #### C MP, CMADM, BNP ####[facility] Qcehvgjfth[address] [place], [place] [address]Dr. Farhat Leal Potassium [Moles/Vol] 4.4 mmol/L Normal 3.5-5.1 [facility] Comment on above: Performed By: #### C MP, CMADM, BNP ####[facility] Cultmyimgc8338 [place] [address]Dr. Farhat Leal Protein [Mass/Vol] 5.9 g/dL Critically low 6.4-8.2 [facility] [place] [facility] Comment on above: Performed By: #### C MP, CMADM, BNP ####[facility] Uqyvrfwjhf7004 [place] [address]Dr. Farhat Leal Sodium [Moles/Vol] 130 mmol/L Critically low 136-145 Th [facility] [place] [facility] Comment on above: Performed By: #### C MP, CMADM, BNP ####[facility] Rwqxfgxdhk17[address] [place], [place] [address]Dr. Farhat Leal Urea nitrogen [Mass/Vol] 46.0 mg/dL Critically high 7.0-18.0 [facility] Comment on above: Performed By: #### C MP, CMADM, BNP ####[facility] Vcoyoivimb618[address] [place], [place] [address]Dr. Farhat Leal Urea nitrogen/Creatinine [Mass ratio] 30.9 mg/mg Normal [facility] Comment on above: Performed By: #### C MP, CMADM, BNP ####[facility] Wzzvhwxapu[address] [place], [place] [address]Dr. Farhat Leal PROTIMEon 11-23-2021 INR Coag (PPP) [Relative time] 2.55 {INR} Normal [facility] Comment on above: Performed By: #### P TT, PT ####[facility] Gwhdweqezf[address] [place], [place] [address]Dr. Farhat Leal INR GUIDELINES SEE BELOW Normal [facility] Comment on above: Result Comment: MALINA RED INR: 2.0 - 3.0 CONDITIONS NOT LISTED BELOW 2.5 - 3.5 FOR PROSTHETIC HEART VALVE REPLACEMENT 2.5 - 3.5 RECURRENT THROMBOSIS Performed By: #### P TT, PT ####[facility] Apfxqonyuc175[address] [place], [place] [address]Dr. Fahrat Leal PT Coag (PPP) [Time] 25.9 s Critically high 9.0-11.6 [facility] Comment on above: Performed By: #### P TT, PT ####[facility] Sgcwlffzfm[address] [place], [place] [address]Dr. Farhat Leal PTTon 11-23-2021 aPTT Coag (Bld) [Time] 39.9 s Critically high 22.3-36. 2 [facility] Comment on above: Performed By: #### P TT, PT ####[facility] Ncpapkufpu499[address] [place], [place] [address]Dr. Farhat Leal XR CHEST 1 Von 11-23-2021 XR CHEST 1 V Normal [facility] XR HEEL RT 2Von 11-23-2021 XR HEEL RT 2V Normal [facility] XR FOOT RT MIN 3 VIEWSon XR FOOT RT MIN 3 VIEWS Normal [facility] US ARTERY LEG RTon US ARTERY LEG RT Normal [facility] CBC AUTO DIFFon 09-24-2021 BASO # 0.1 103/ul Normal 0.0-0.1 [facility] Comment on above: Performed By: #### C BC ####[facility] Fimgulxooy34[address] [place], [place] [address]Dr. Farhat Leal Basophils/100 WBC (Bld) 0.7 % Normal 0.2-2.0 [facility] Comment on above: Performed By: #### C BC ####[facility] Zbfoofzibt[address] [place], [place] [address]DrSkylar Leal EO # 0.3 103/ul Normal 0.0-0.7 [facility] Comment on above: Performed By: #### C BC ####[facility] Rtdsxqisie[address] [place], [place] [address]DrSkylar Leal Eosinophils/100 WBC (Bld) 3.9 % Normal 0.9-7.0 [facility] Comment on above: Performed By: #### C BC ####[facility] Uxkjlquopc[address] [place], [place] [address]DrSkylar Leal Erythrocyte distribution width (RBC) [Ratio] 12.6 % Normal 11.0-15.0 [facility] Comment on above: Performed By: #### C BC ####[facility] Jisguodznn[address] [place], [place] [address]DrSkylar Leal Hematocrit (Bld) [Volume fraction] 38.9 % Critically low 42.0-54.0 [facility] Comment on above: Performed By: #### C BC ####[facility] Rbtvaaugop[address] [place] [address]DrSkylar Farhat Elvis Hemoglobin (Bld) [Mass/Vol] 12.8 g/dL Critically low 14.0-18.0 [facility] Comment on above: Performed By: #### C BC ####[facility] Ciwrzykbjr[address] [place], [place] [address]DrSkylar Leal IG # 0.10 10e3/ul Critically high 0.00-0.03 [facility] Comment on above: Performed By: #### C BC ####[facility] Syxzwpthke095[address] [place], [place] [address]DrSkylar Leal IG % 1.2 % Critically high 0.0-0.5 [facility] Comment on above: Performed By: #### C BC ####[facility] Twvuazvhic880[address] [place], [place] [address]DrSkylar Leal LYMPH # 2.1 103/ul Normal 1.2-3.8 [facility] Comment on above: Performed By: #### C BC ####[facility] Klmdqghsbn1617[address] [place], [place] [address]DrSkylar Leal Lymphocytes/100 WBC (Bld) 25.9 % Normal 20.5-60.0 [facility] Comment on above: Performed By: #### C BC ####[facility] Edbtdwyiiv3345[address] [place], [place] [address]DrSkylar Leal MANUAL DIFF REQ NO Normal [facility] Comment on above: Performed By: #### C BC ####[facility] Bgkhhetlhu5724[address] [place], [place] [address]DrSkylar Leal MCH (RBC) [Entitic mass] 31.1 pg Normal 25.9-34.0 [facility] Comment on above: Performed By: #### C BC ####[facility] Aikegkotad8399[address] [place], [place] [address]DrSkylar Leal MCHC (RBC) [Mass/Vol] 32.9 g/dL Normal 29.9-35.2 [facility] Comment on above: Performed By: #### C BC ####[facility] Ijdnsoxzdy3664 [place] [address]Dr. Farhat Leal MCV (RBC) [Entitic vol] 94.6 fL Critically high 80.0-94.0 [facility] Comment on above: Performed By: #### C BC ####[facility] Vztfljxyyf376[address] [place], [place] [address]Dr. Farhat Leal MONO # 1.2 103/ul Critically high 0.3-0.8 [facility] Comment on above: Performed By: #### C BC ####[facility] Xugroudpqb284[address] [place], [place] [address]Dr. Farhat Leal Monocytes/100 WBC (Bld) 14.1 % Critically high 1.7-12.0 [facility] Comment on above: Performed By: #### C BC ####[facility] Bzfzzlabtz0127[address] [place], [place] [address]Dr. Farhat Leal NEUT # 4.4 103/ul Normal 1.4-6.5 [facility] Comment on above: Performed By: #### C BC ####[facility] Mjjqwtkoff685[address] [place], [place] [address]Dr. Farhat Leal Neutrophils/100 WBC (Bld) 54.2 % Normal 43.0-75.0 [facility] Comment on above: Performed By: #### C BC ####[facility] Vkwmurnoba7588[address] [place], [place] [address]Dr. Farhat Leal Platelet mean volume (Bld) [Entitic vol] 9.9 fL Normal 9.5-13.5 [facility] Comment on above: Performed By: #### C BC ####[facility] Bludosxebf877[address] [place], [place] [address]Dr. Farhat Leal PLT 224 103/ul Normal 150-450 [facility] Comment on above: Performed By: #### C BC ####[facility] Vzfagfyekh854[address] [place], [place] [address]Dr. Farhat Leal RBC 4.11 106/ul Critically low 4.70-6.10 [facility] Comment on above: Performed By: #### C BC ####[facility] Xectsaprsr30[address] [place] [address]Dr. Farhat Elvis WBC 8.2 103/ul Normal 4.0-11.0 [facility] Comment on above: Performed By: #### C BC ####[facility] Flaourmnkg445[address] [place], [place] [address]Dr. Farhat Leal PROF CHEM 8 (BAS METB)on Anion gap [Moles/Vol] 9.6 mmol/L Normal [facility] Comment on above: Performed By: #### B MP ####[facility] Prxrbxhclc267[address] [place], [place] [address]Dr. Farhat Leal Calcium [Mass/Vol] 8.6 mg/dL Normal 8.5-10.1 [facility] Comment on above: Performed By: #### B MP ####[facility] Vfipfutpne527[address] [place], [place] [address]Dr. Farhat Leal Chloride [Moles/Vol] 94 mmol/L Critically low 98-107 [facility] Comment on above: Performed By: #### B MP ####[facility] Plqrnuyjhj8411[address] [place], [place] [address]Dr. Farhat Leal CO2 [Moles/Vol] 28.1 mmol/L Normal 21.0-32.0 [facility] Comment on above: Performed By: #### B MP ####[facility] Wtxtgsudpb338[address] [place], [place] [address]Dr. Farhat Leal Creatinine [Mass/Vol] 1.91 mg/dL Critically high 0.70-1.30 [facility] Comment on above: Performed By: #### B MP ####[facility] Bvlkidqwwf045[address] [place], [place] [address]Dr. Farhat Leal EGFR-AF [place] 42 mL/min/1.73m2 Critically low >=60 [facility] Comment on above: Performed By: #### B MP ####[facility] Xiusogmhou0799 [place] [address]Dr. Madelynlorri Elvis EGFR-NON AF [place] 34 mL/min/1.73m2 Critically low >=60 [facility] Comment on above: Performed By: #### B MP ####[facility] Iatpreetsz5865[address] [place], [place] [address]Dr. Farhat Leal Glucose [Mass/Vol] 314 mg/dL Critically high 74-106 [facility] Comment on above: Performed By: #### B MP ####[facility] Ocgcitthhg284[address] [place], [place] [address]Dr. Farhat Leal Potassium [Moles/Vol] 4.7 mmol/L Normal 3.5-5.1 [facility] Comment on above: Performed By: #### B MP ####[facility] Lsteojypxi460[address] [place], [place] [address]Dr. Farhat Leal Sodium [Moles/Vol] 127 mmol/L Critically low 136-145 Th [facility] Comment on above: Performed By: #### B MP ####[facility] Gooxdkqkli364[address] [place], [place] [address]Dr. Farhat Leal Urea nitrogen [Mass/Vol] 79.0 mg/dL Critically high 7.0-18.0 [facility] Comment on above: Result Comment: repe ated Performed By: #### B MP ####[facility] Uevgagxqaw332[address] [place], [place] [address]Dr. Farhat Leal Urea nitrogen/Creatinine [Mass ratio] 41.4 mg/mg Normal [facility] Comment on above: Performed By: #### B MP ####[facility] Hqefvabfum5712[address] [place], [place] [address]Dr. Farhat Leal PTT HEPARIN MONITORon 2021 aPTT Coag (Bld) [Time] 42.7 s Normal 39.5-54.2 [facility] Comment on above: Performed By: #### P TTHEP ####[facility] Jksfqqtrfc329[address] [place], [place] [address]Dr. Farhat Leal aPTT Coag (Bld) [Time] 56.7 s Critically high 39.5-54. 2 [facility] Comment on above: Performed By: #### P TTHEP ####[facility] Ohfclzlnth01[address] [place], [place] [address]Dr. Farhat Leal CBC AUTO DIFFon 09-23-2021 BASO # 0.1 103/ul Normal 0.0-0.1 [facility] Comment on above: Performed By: #### C BC ####[facility] Oagozamfdv3699[address] [place], [place] [address]Dr. Farhat Leal Basophils/100 WBC (Bld) 0.6 % Normal 0.2-2.0 [facility] Comment on above: Performed By: #### C BC ####[facility] Nbsigyppjm7424[address] [place], [place] [address]Dr. Farhat Leal EO # 0.2 103/ul Normal 0.0-0.7 [facility] Comment on above: Performed By: #### C BC ####[facility] Wsfwcokyvw179[address] [place], [place] [address]Dr. Farhat Leal Eosinophils/100 WBC (Bld) 2.6 % Normal 0.9-7.0 [facility] Comment on above: Performed By: #### C BC ####[facility] Qilhppuxlg63[address] [place], [place] [address]Dr. Farhat Leal Erythrocyte distribution width (RBC) [Ratio] 12.4 % Normal 11.0-15.0 [facility] Comment on above: Performed By: #### C BC ####[facility] Deononosmt090[address] [place], [place] [address]Dr. Farhat Leal Hematocrit (Bld) [Volume fraction] 38.4 % Critically low 42.0-54.0 [facility] Comment on above: Performed By: #### C BC ####[facility] Cftncojdhj55225[address] [place], [place] [address]Dr. Farhat Leal Hemoglobin (Bld) [Mass/Vol] 12.8 g/dL Critically low 14.0-18.0 [facility] Comment on above: Performed By: #### C BC ####[facility] Yldybasfnk625[address] [place], [place] [address]DrSkylar Leal IG # 0.06 10e3/ul Critically high 0.00-0.03 [facility] Comment on above: Performed By: #### C BC ####[facility] Aioqceskdd[address] [place] [address]DrSkylar Leal IG % 0.8 % Critically high 0.0-0.5 [facility] Comment on above: Performed By: #### C BC ####[facility] Cplrlmjmrh5[address] [place] [address]DrSkylar Leal LYMPH # 1.5 103/ul Normal 1.2-3.8 [facility] Comment on above: Performed By: #### C BC ####[facility] Jadybfivcq8148 [place] [address]DrSkylar Leal Lymphocytes/100 WBC (Bld) 19.7 % Critically low 20.5-60.0 [facility] Comment on above: Performed By: #### C BC ####[facility] Comiwclywk3024[address] [place], [place] [address]DrSkylar Leal MANUAL DIFF REQ NO Normal [facility] Comment on above: Performed By: #### C BC ####[facility] Xpbfthhmix977[address] [place], [place] [address]DrSkylar Leal MCH (RBC) [Entitic mass] 31.6 pg Normal 25.9-34.0 [facility] Comment on above: Performed By: #### C BC ####[facility] Fisonbndlw1299 [place] [address]DrSkylar Leal MCHC (RBC) [Mass/Vol] 33.3 g/dL Normal 29.9-35.2 [facility] Comment on above: Performed By: #### C BC ####[facility] Nzsniveyvz114[address] [place], [place] [address]DrSkylar Leal MCV (RBC) [Entitic vol] 94.8 fL Critically high 80.0-94.0 [facility] Comment on above: Performed By: #### C BC ####[facility] Msebrdndfh1717[address] [place], [place] [address]Dr. Farhat Leal MONO # 1.0 103/ul Critically high 0.3-0.8 [facility] Comment on above: Performed By: #### C BC ####[facility] Lcyaarsqwd9937 [place] [id number]. Farhat Leal Monocytes/100 WBC (Bld) 13.0 % Critically high 1.7-12.0 [facility] Comment on above: Performed By: #### C BC ####[facility] Kyzshzgbxe[address] [place] [id number]. Farhat Leal NEUT # 4.9 103/ul Normal 1.4-6.5 [facility] Comment on above: Performed By: #### C BC ####[facility] Rskejqyern2570 [place] [id number] Farhat Leal Neutrophils/100 WBC (Bld) 63.3 % Normal 43.0-75.0 [facility] Comment on above: Performed By: #### C BC ####[facility] Onccwohycl284[address] [place], [place] [address]Dr. Farhat Leal Platelet mean volume (Bld) [Entitic vol] 10.7 fL Normal 9.5-13.5 [facility] Comment on above: Performed By: #### C BC ####[facility] Tgkdbwhojx[address] [place], [place] [id number]. Farhat Leal PLT 205 103/ul Normal 150-450 [facility] Comment on above: Performed By: #### C BC ####[facility] Brrgnznqzg0816 [place] [id number]. Farhat Leal RBC 4.05 106/ul Critically low 4.70-6.10 [facility] Comment on above: Performed By: #### C BC ####[facility] Qbhqktmgvk1021 [place] [id number] Farhat Leal WBC 7.7 103/ul Normal 4.0-11.0 [facility] Comment on above: Performed By: #### C BC ####[facility] Lknlyicpyu216[address] [place], [place] [address]DrSkylar Leal PROF CHEM 8 (BAS METB)on Anion gap [Moles/Vol] 15.5 mmol/L Normal [facility] Comment on above: Performed By: #### B MP ####[facility] Nuzlplepdx4035[address] [place], [place] [address]Dr. Madelynlorri Leal Calcium [Mass/Vol] 9.1 mg/dL Normal 8.5-10.1 [facility] Comment on above: Performed By: #### B MP ####[facility] Cmrvquzuet838[address] [place], [place] [address]Dr. Farhat Leal Chloride [Moles/Vol] 92 mmol/L Critically low 98-107 [facility] Comment on above: Performed By: #### B MP ####[facility] Niqtagiocs940[address] [place], [place] [address]Dr. Farhat Leal CO2 [Moles/Vol] 28.5 mmol/L Normal 21.0-32.0 [facility] Comment on above: Performed By: #### B MP ####[facility] Nkntwwggsa7439[address] [place], [place] [address]Dr. Farhat Leal Creatinine [Mass/Vol] 1.84 mg/dL Critically high 0.70-1.30 [facility] Comment on above: Performed By: #### B MP ####[facility] Ryjvirfciw707[address] [place], [place] [address]Dr. Farhat Leal EGFR-AF [place] 44 mL/min/1.73m2 Critically low >=60 [facility] Comment on above: Performed By: #### B MP ####[facility] Bfopcdlsgm555[address] [place], [place] [address]Dr. Farhat Leal EGFR-NON AF [place] 36 mL/min/1.73m2 Critically low >=60 [facility] Comment on above: Performed By: #### B MP ####[facility] Ycvxakfsli230[address] [place], [place] [address]Dr. Farhat Leal Glucose [Mass/Vol] 267 mg/dL Critically high 74-106 T [facility] Comment on above: Performed By: #### B MP ####[facility] Xreugoqwac0175[address] [place], [place] [address]Dr. Farhat eLal Potassium [Moles/Vol] 5.0 mmol/L Normal 3.5-5.1 [facility] Comment on above: Performed By: #### B MP ####[facility] Rayyfvshfa766[address] [place], [place] [address]Dr. Farhat Leal Sodium [Moles/Vol] 131 mmol/L Critically low 136-145 Th [facility] Comment on above: Performed By: #### B MP ####[facility] Qpdsvpzdgc667[address] [place], [place] [address]Dr. Farhat Leal Urea nitrogen [Mass/Vol] 76.0 mg/dL Critically high 7.0-18.0 [facility] Comment on above: Performed By: #### B MP ####[facility] Ndcfwctbkv345[address] [place], [place] [address]Dr. Farhat Leal Urea nitrogen/Creatinine [Mass ratio] 41.3 mg/mg Normal [facility] Comment on above: Performed By: #### B MP ####[facility] Qqfnlnqrcg574[address] [place], [place] [address]Dr. Farhat Leal PTT HEPARIN MONITORon 2021 aPTT Coag (Bld) [Time] 57.2 s Critically high 39.5-54. 2 [facility] Comment on above: Performed By: #### P TTHEP ####[facility] Kgvuixvibq826[address] [place], [place] [address]Dr. Farhat Leal aPTT Coag (Bld) [Time] 74.7 s Critically high 39.5-54. 2 [facility] Comment on above: Result Comment: repe ated Performed By: #### P TTHEP ####[facility] Dgaxlpsfim180[address] [place], [place] [address]Dr. Farhat Leal aPTT Coag (Bld) [Time] 45.5 s Normal 39.5-54.2 [facility] Comment on above: Performed By: #### P TTHEP ####[facility] Bzzrscjioh249[address] [place], [place] [address]Dr. Farhat Leal CBC AUTO DIFFon 09-22-2021 BASO # 0.1 103/ul Normal 0.0-0.1 [facility] Comment on above: Performed By: #### C BC ####[facility] Qmymkyvukl22[address] [place] [address]Dr. Farhat Leal Basophils/100 WBC (Bld) 0.7 % Normal 0.2-2.0 [facility] Comment on above: Performed By: #### C BC ####[facility] Ytvbynvdoi9888 [place] [address]DrSkylar Leal EO # 0.3 103/ul Normal 0.0-0.7 [facility] Comment on above: Performed By: #### C BC ####[facility] Wzbvaszjac4730[address] [place], [place] [address]Dr. Farhat Leal Eosinophils/100 WBC (Bld) 3.2 % Normal 0.9-7.0 [facility] Comment on above: Performed By: #### C BC ####[facility] Drcwhjndzq568[address] [place], [place] [address]DrSkylar Leal Erythrocyte distribution width (RBC) [Ratio] 12.5 % Normal 11.0-15.0 [facility] Comment on above: Performed By: #### C BC ####[facility] Qvdasdjvhy354[address] [place], [place] [address]Dr. Farhat Leal Hematocrit (Bld) [Volume fraction] 40.5 % Critically low 42.0-54.0 [facility] Comment on above: Performed By: #### C BC ####[facility] Tygmvsupcz449[address] [place], [place] [address]Dr. Farhat Leal Hemoglobin (Bld) [Mass/Vol] 13.4 g/dL Critically low 14.0-18.0 [facility] Comment on above: Performed By: #### C BC ####[facility] Atjczvhzbw227[address] [place], [place] [address]DrSkylar Leal IG # 0.11 10e3/ul Critically high 0.00-0.03 [facility] Comment on above: Performed By: #### C BC ####[facility] Wvizuihnzl[address] [place], [place] [address]Dr. Farhat Leal IG % 1.3 % Critically high 0.0-0.5 [facility] Comment on above: Performed By: #### C BC ####[facility] Njdtglxncu2938 [place] [address]DrSkylar Leal LYMPH # 1.7 103/ul Normal 1.2-3.8 [facility] Comment on above: Performed By: #### C BC ####[facility] Nuepzokazy6846 [place] [address]DrSkylar Leal Lymphocytes/100 WBC (Bld) 19.6 % Critically low 20.5-60.0 [facility] Comment on above: Performed By: #### C BC ####[facility] Wttzsndvxv[address] [place], [place] [address]DrSkylar Leal MANUAL DIFF REQ NO Normal [facility] Comment on above: Performed By: #### C BC ####[facility] Sydfbpzqas2307 [place] [address]DrSkylar Leal MCH (RBC) [Entitic mass] 31.1 pg Normal 25.9-34.0 [facility] Comment on above: Performed By: #### C BC ####[facility] Ntrgtfmmxc014[address] [place], [place] [address]DrSkylar Leal MCHC (RBC) [Mass/Vol] 33.1 g/dL Normal 29.9-35.2 [facility] Comment on above: Performed By: #### C BC ####[facility] Xohbbybtvm0147 [place] [address]DrSkylar Leal MCV (RBC) [Entitic vol] 94.0 fL Normal 80.0-94.0 [facility] Comment on above: Performed By: #### C BC ####[facility] Daqwwwqypx05[address] [place], [place] [address]DrSkylar Leal MONO # 1.1 103/ul Critically high 0.3-0.8 [facility] Comment on above: Performed By: #### C BC ####[facility] Idxpakeyqx034[address] [place], [place] [address]DrSkylar Leal Monocytes/100 WBC (Bld) 12.7 % Critically high 1.7-12.0 [facility] Comment on above: Performed By: #### C BC ####[facility] Apsxxxccvd8155 [place] [address]DrSkylar Farhat Leal NEUT # 5.3 103/ul Normal 1.4-6.5 [facility] Comment on above: Performed By: #### C BC ####[facility] Qbxjbfeqir3185 [place] [address]DrSkylar Farhat Leal Neutrophils/100 WBC (Bld) 62.5 % Normal 43.0-75.0 [facility] Comment on above: Performed By: #### C BC ####[facility] Mbkpznzbaz894[address] [place], [place] [address]DrSkylar Farhat Elvis Platelet mean volume (Bld) [Entitic vol] 10.1 fL Normal 9.5-13.5 [facility] Comment on above: Performed By: #### C BC ####[facility] Zrzmfoktzf512[address] [place], [place] [address]DrSkylar Farhat Leal PLT 220 103/ul Normal 150-450 [facility] Comment on above: Performed By: #### C BC ####[facility] Ibuovbnomm9020[address] [place], [place] [address]DrSkylar Farhat Leal RBC 4.31 106/ul Critically low 4.70-6.10 [facility] Comment on above: Performed By: #### C BC ####[facility] Oxujelnufp[address] [place], [place] [id number] Farhat Elvis WBC 8.4 103/ul Normal 4.0-11.0 [facility] Comment on above: Performed By: #### C BC ####[facility] Eezedhggrl[address] [place], [place] [id number] Madelynlorri Leal PROF CHEM 8 (BAS METB)on Anion gap [Moles/Vol] 15.5 mmol/L Normal [facility] Comment on above: Performed By: #### B MP ####[facility] Xktbsssdeb6925[address] [place], [place] [address]Dr. Farhat Leal Calcium [Mass/Vol] 8.9 mg/dL Normal 8.5-10.1 [facility] Comment on above: Performed By: #### B MP ####[facility] Gkdoydhmzw9991 [place] [address]Dr. Farhat Leal Chloride [Moles/Vol] 92 mmol/L Critically low 98-107 [facility] Comment on above: Performed By: #### B MP ####[facility] Nxzaptpsjv945[address] [place], [place] [address]Dr. Farhat Leal CO2 [Moles/Vol] 25.7 mmol/L Normal 21.0-32.0 [facility] Comment on above: Performed By: #### B MP ####[facility] Uyprmwvqsp537[address] [place], [place] [address]Dr. Farhat Leal Creatinine [Mass/Vol] 1.85 mg/dL Critically high 0.70-1.30 [facility] Comment on above: Performed By: #### B MP ####[facility] Tgzgmfjoan375[address] [place], [place] [address]Dr. Farhat Elal EGFR-AF [place] 43 mL/min/1.73m2 Critically low >=60 [facility] Comment on above: Performed By: #### B MP ####[facility] Bittpnfyho600[address] [place], [place] [address]Dr. Farhat Leal EGFR-NON AF [place] 36 mL/min/1.73m2 Critically low >=60 [facility] Comment on above: Performed By: #### B MP ####[facility] Wnktslhqal9604 [place] [address]Dr. Farhat Leal Glucose [Mass/Vol] 410 mg/dL Critically high 74-106 [facility] Comment on above: Performed By: #### B MP ####[facility] Hsotmzvfee[address] [place], [place] [address]Dr. Farhat Leal Potassium [Moles/Vol] 5.2 mmol/L Critically high 3.5-5.1 [facility] Comment on above: Performed By: #### B MP ####[facility] Tgarcrwwve846[address] [place], [place] [address]Dr. Farhat Leal Sodium [Moles/Vol] 128 mmol/L Critically low 136-145 Th [facility] Comment on above: Performed By: #### B MP ####[facility] Ehiaoblrqt26[address] [place], [place] [address]Dr. Farhat Leal Urea nitrogen [Mass/Vol] 75.0 mg/dL Critically high 7.0-18.0 [facility] Comment on above: Performed By: #### B MP ####[facility] Jnytitkdqt[address] [place], [place] [address]Dr. Farhat Leal Urea nitrogen/Creatinine [Mass ratio] 40.5 mg/mg Normal [facility] Comment on above: Performed By: #### B MP ####[facility] Nunhkydmny[address] [place], [place] [address]Dr. Farhat Leal PTT HEPARIN MONITORon 2021 aPTT Coag (Bld) [Time] 51.2 s Normal 39.5-54.2 [facility] Comment on above: Performed By: #### P TTHEP ####[facility] Bmvdsmmkfc[address] [place], [place] [address]Dr. Farhat Leal aPTT Coag (Bld) [Time] 55.6 s Critically high 39.5-54. 2 [facility] Comment on above: Performed By: #### P TTHEP ####[facility] Kjavlbumyr[address] [place], [place] [address]Dr. Farhat Leal aPTT Coag (Bld) [Time] 46.1 s Normal 39.5-54.2 [facility] Comment on above: Performed By: #### P TTHEP ####[facility] Anywceayun[address] [place], [place] [address]Dr. Farhat Leal aPTT Coag (Bld) [Time] 53.8 s Normal 39.5-54.2 [facility] Comment on above: Performed By: #### P TTHEP ####[facility] Ilndhbrtpb[address] [place], [place] [address]Dr. Farhat Leal CBC AUTO DIFFon 09-21-2021 BASO # 0.1 103/ul Normal 0.0-0.1 [facility] Comment on above: Performed By: #### C BC ####[facility] Ifxealzseu[address] [place] [address]Dr. Farhat Leal Basophils/100 WBC (Bld) 0.8 % Normal 0.2-2.0 [facility] Comment on above: Performed By: #### C BC ####[facility] Tbovjwaxra[address] [place], [place] [address]Dr. Farhat Leal EO # 0.4 103/ul Normal 0.0-0.7 [facility] Comment on above: Performed By: #### C BC ####[facility] Cncdanzgom[address] [place], [place] [address]Dr. Farhat Leal Eosinophils/100 WBC (Bld) 4.3 % Normal 0.9-7.0 [facility] Comment on above: Performed By: #### C BC ####[facility] Bnxwpndeho15[address] [place], [place] [address]Dr. Farhat Leal Erythrocyte distribution width (RBC) [Ratio] 12.5 % Normal 11.0-15.0 [facility] Comment on above: Performed By: #### C BC ####[facility] Dffgobhyal9[address] [place], [place] [address]Dr. Farhat Leal Hematocrit (Bld) [Volume fraction] 40.8 % Critically low 42.0-54.0 [facility] Comment on above: Performed By: #### C BC ####[facility] Hrinvqpoaw[address] [place], [place] [address]Dr. Farhat Leal Hemoglobin (Bld) [Mass/Vol] 13.5 g/dL Critically low 14.0-18.0 [facility] Comment on above: Performed By: #### C BC ####[facility] Uqnlkrivgz[address] [place], [place] [address]Dr. Madelynlorri Elvis IG # 0.10 10e3/ul Critically high 0.00-0.03 [facility] Comment on above: Performed By: #### C BC ####[facility] Jofccutmvk[address] [place], [place] [address]Dr. Farhat Leal IG % 1.2 % Critically high 0.0-0.5 [facility] Comment on above: Performed By: #### C BC ####[facility] Bunszcagcj[address] [place] [address]Dr. Farhat Leal LYMPH # 1.3 103/ul Normal 1.2-3.8 [facility] Comment on above: Performed By: #### C BC ####[facility] Liitppnxzl[address] [place] [address]Dr. Madelynlorri Leal Lymphocytes/100 WBC (Bld) 15.4 % Critically low 20.5-60.0 [facility] Comment on above: Performed By: #### C BC ####[facility] Z[address]fgtlrmt[address] [place] [address]Dr. Farhat Leal MANUAL DIFF REQ NO Normal [facility] Comment on above: Performed By: #### C BC ####[facility] Tjzglsschp[address] [place] [address]Dr. Farhat Elvis MCH (RBC) [Entitic mass] 31.0 pg Normal 25.9-34.0 [facility] Comment on above: Performed By: #### C BC ####[facility] Iighvpysdg[address] [place] [address]Dr. Farhat Elvis MCHC (RBC) [Mass/Vol] 33.1 g/dL Normal 29.9-35.2 [facility] Comment on above: Performed By: #### C BC ####[facility] Lyzmndaaok[address] [place] [address]DrSkylar Leal MCV (RBC) [Entitic vol] 93.8 fL Normal 80.0-94.0 [facility] Comment on above: Performed By: #### C BC ####[facility] Sxzzpeiufc34[address] [place] [address]DrSkylar Leal MONO # 1.2 103/ul Critically high 0.3-0.8 [facility] Comment on above: Performed By: #### C BC ####[facility] Hpzyfbbctp4[address] [place] [address]Dr. Farhat Leal Monocytes/100 WBC (Bld) 13.6 % Critically high 1.7-12.0 [facility] Comment on above: Performed By: #### C BC ####[facility] Ufrspiufgc[address] [place] [address]Dr. Farhat Leal NEUT # 5.5 103/ul Normal 1.4-6.5 [facility] Comment on above: Performed By: #### C BC ####[facility] Pybobafote040[address] [place] [address]Dr. Farhat Leal Neutrophils/100 WBC (Bld) 64.7 % Normal 43.0-75.0 [facility] Comment on above: Performed By: #### C BC ####[facility] Kihoojdhek[address] [place] [address]Dr. Farhat Leal Platelet mean volume (Bld) [Entitic vol] 9.8 fL Normal 9.5-13.5 [facility] Comment on above: Performed By: #### C BC ####[facility] Dmdyxtcbya75[address] [place] [address]Dr. Farhat Leal PLT 206 103/ul Normal 150-450 [facility] Comment on above: Performed By: #### C BC ####[facility] Kznnoxeoou[address] [place], [place] [address]Dr. Farhat Leal RBC 4.35 106/ul Critically low 4.70-6.10 [facility] Comment on above: Performed By: #### C BC ####[facility] Eagauxrjle[address] [place] [address]Dr. Farhat Leal WBC 8.4 103/ul Normal 4.0-11.0 [facility] Comment on above: Performed By: #### C BC ####[facility] Noputbtigl[address]64 [place] [address]Dr. Farhat Elvis PROF CHEM 8 (BAS METB)on Anion gap [Moles/Vol] 12.3 mmol/L Normal [facility] Comment on above: Performed By: #### B MP ####[facility] Zglepczfuw[address] [place], [place] [address]Dr. Farhat Leal Calcium [Mass/Vol] 8.6 mg/dL Normal 8.5-10.1 [facility] Comment on above: Performed By: #### B MP ####[facility] Wqamyolcdw5586 [place] [address]Dr. Farhat Leal Chloride [Moles/Vol] 94 mmol/L Critically low 98-107 [facility] Comment on above: Performed By: #### B MP ####[facility] Clfsqppxfn539[address] [place], [place] [address]Dr. Farhat Leal CO2 [Moles/Vol] 30.8 mmol/L Normal 21.0-32.0 [facility] Comment on above: Performed By: #### B MP ####[facility] Kevyvywhwa63[address] [place], [place] [address]Dr. Farhat Leal Creatinine [Mass/Vol] 1.99 mg/dL Critically high 0.70-1.30 [facility] Comment on above: Performed By: #### B MP ####[facility] Ftprcqckmu[address] [place], [place] [address]Dr. Farhat Leal EGFR-AF [place] 40 mL/min/1.73m2 Critically low >=60 [facility] Comment on above: Performed By: #### B MP ####[facility] Cjzfzwpsiu18[address] [place], [place] [address]Dr. Farhat Leal EGFR-NON AF [place] 33 mL/min/1.73m2 Critically low >=60 [facility] Comment on above: Performed By: #### B MP ####[facility] Yzredghuoy[address] [place], [place] [address]Dr. Farhat Leal Glucose [Mass/Vol] 264 mg/dL Critically high 74-106 [facility] Comment on above: Performed By: #### B MP ####[facility] Ynedmqmwit9[address] [place], [place] [address]Dr. Farhat Leal Potassium [Moles/Vol] 5.1 mmol/L Normal 3.5-5.1 [facility] Comment on above: Performed By: #### B MP ####[facility] Hepkmprrdv219[address] [place], [place] [address]Dr. Farhat Leal Sodium [Moles/Vol] 132 mmol/L Critically low 136-145 [facility] Comment on above: Performed By: #### B MP ####[facility] Opdyopbsyp377[address] [place], [place] [address]Dr. Farhat Leal Urea nitrogen [Mass/Vol] 72.0 mg/dL Critically high 7.0-18.0 [facility] Comment on above: Performed By: #### B MP ####[facility] Rstsacavvx056[address] [place], [place] [address]Dr. Farhat Leal Urea nitrogen/Creatinine [Mass ratio] 36.2 mg/mg Normal [facility] Comment on above: Performed By: #### B MP ####[facility] Vheiemmwfd687[address] [place], [place] [address]Dr. Farhat Leal PTT HEPARIN MONITORon 2021 aPTT Coag (Bld) [Time] 45.3 s Normal 39.5-54.2 [facility] Comment on above: Performed By: #### P TTHEP ####[facility] Hdbneesoko259[address] [place], [place] [address]Dr. Madelynlorri Elvis aPTT Coag (Bld) [Time] 68.0 s Critically high 39.5-54. 2 [facility] Comment on above: Performed By: #### P TTHEP ####[facility] Rhvmnvbxwz[address] [place], [place] [address]Dr. Farhat Leal aPTT Coag (Bld) [Time] 69.4 s Critically high 39.5-54. 2 [facility] Comment on above: Performed By: #### P TTHEP ####[facility] Mqpqyrdwyi[address] [place], [place] [address]Dr. Farhat Leal aPTT Coag (Bld) [Time] 53.5 s Normal 39.5-54.2 [facility] Comment on above: Performed By: #### P TTHEP ####[facility] Ryhxifrbga[address] [place], [place] [address]Dr. Farhat Leal aPTT Coag (Bld) [Time] 126.9 s Critically high 39.5-54. 2 [facility] Comment on above: Performed By: #### P TTHEP ####[facility] Smeydapgff[address] [place], [place] [address]Dr. Farhat Leal CBC AUTO DIFFon 09-20-2021 BASO # 0.1 103/ul Normal 0.0-0.1 [facility] Comment on above: Performed By: #### C BC ####[facility] Octdvnfhqy45[address] [place], [place] [address]Dr. Farhat Leal Basophils/100 WBC (Bld) 0.7 % Normal 0.2-2.0 [facility] Comment on above: Performed By: #### C BC ####[facility] Wijzcjkcjd17[address] [place], [place] [address]Dr. Farhat Leal EO # 0.2 103/ul Normal 0.0-0.7 [facility] Comment on above: Performed By: #### C BC ####[facility] Okrujozlxk45[address] [place], [place] [address]Dr. Farhat Leal Eosinophils/100 WBC (Bld) 3.2 % Normal 0.9-7.0 [facility] Comment on above: Performed By: #### C BC ####[facility] Feasylgxum96[address] [place], [place] [address]Dr. Farhat Leal Erythrocyte distribution width (RBC) [Ratio] 12.4 % Normal 11.0-15.0 [facility] Comment on above: Performed By: #### C BC ####[facility] Vnvjaqxyhi[address] [place], [place] [address]Dr. Farhat Leal Hematocrit (Bld) [Volume fraction] 40.1 % Critically low 42.0-54.0 [facility] Comment on above: Performed By: #### C BC ####[facility] Xhsdpfqdoj[address] [place], [place] [address]Dr. Farhat Leal Hemoglobin (Bld) [Mass/Vol] 13.4 g/dL Critically low 14.0-18.0 [facility] Comment on above: Performed By: #### C BC ####[facility] [address]wvet[address]impv[address] [place] [id number]. Farhat Leal IG # 0.08 10e3/ul Critically high 0.00-0.03 [facility] Comment on above: Performed By: #### C BC ####[facility] Hzdswephnq6606 [place] [id number]. Farhat Elvis IG % 1.1 % Critically high 0.0-0.5 [facility] Comment on above: Performed By: #### C BC ####[facility] Nlvrxmjand[address] [place] [address]Dr. Madelynlorri Elvis LYMPH # 1.3 103/ul Normal 1.2-3.8 [facility] Comment on above: Performed By: #### C BC ####[facility] Erzpdhevmh75[address] [place] [address]Dr. Farhat Leal Lymphocytes/100 WBC (Bld) 17.3 % Critically low 20.5-60.0 [facility] Comment on above: Performed By: #### C BC ####[facility] Cisyfhpgtz[address] [place] [address]Dr. Madelynlorri Leal MANUAL DIFF REQ NO Normal [facility] Comment on above: Performed By: #### C BC ####[facility] Ednykvekow[address] [place] [address]Dr. Farhat Elvis MCH (RBC) [Entitic mass] 31.2 pg Normal 25.9-34.0 [facility] Comment on above: Performed By: #### C BC ####[facility] Tcvoospzog[address] [place] [address]Dr. Farhat Elvis MCHC (RBC) [Mass/Vol] 33.4 g/dL Normal 29.9-35.2 [facility] Comment on above: Performed By: #### C BC ####[facility] Ygfraiuppk37[address] [place] [address]Dr. Farhat Elvis MCV (RBC) [Entitic vol] 93.3 fL Normal 80.0-94.0 [facility] Comment on above: Performed By: #### C BC ####[facility] Okrmhhetdo4478 [place] [id number]. Farhat Leal MONO # 0.9 103/ul Critically high 0.3-0.8 [facility] Comment on above: Performed By: #### C BC ####[facility] Wvxikvytgn3[address] [place] [id number]. Farhat Leal Monocytes/100 WBC (Bld) 12.4 % Critically high 1.7-12.0 [facility] Comment on above: Performed By: #### C BC ####[facility] Hzilhecqml8531 [place] [phone]. Farhat Leal NEUT # 4.7 103/ul Normal 1.4-6.5 [facility] Comment on above: Performed By: #### C BC ####[facility] Niblzpvgho9175 [place] [phone]. Farhat Leal Neutrophils/100 WBC (Bld) 65.3 % Normal 43.0-75.0 [facility] Comment on above: Performed By: #### C BC ####[facility] Oqptocqnnx0158 [place] [phone]. Farhat Leal Platelet mean volume (Bld) [Entitic vol] 9.9 fL Normal 9.5-13.5 [facility] Comment on above: Performed By: #### C BC ####[facility] Uowscpfkpe4151 [place] [phone]. Farhat Leal PLT 180 103/ul Normal 150-450 [facility] Comment on above: Performed By: #### C BC ####[facility] Ewfxbblurh6761 [place] [phone]. Farhat Leal RBC 4.30 106/ul Critically low 4.70-6.10 [facility] Comment on above: Performed By: #### C BC ####[facility] Clxaxzrrfs5338 [place] [phone]. Farhat eLal WBC 7.2 103/ul Normal 4.0-11.0 [facility] Comment on above: Performed By: #### C BC ####[facility] Oaxxkdfrov2422 [place] [phone]. Farhat Leal PTT HEPARIN MONITORon 2021 aPTT Coag (Bld) [Time] 26.7 s Critically low 39.5-54.2 [facility] Comment on above: Performed By: #### P TTHEP ####[facility] Fnssahxqgl[address] [place], [place] [address]Dr. Farhat Leal aPTT Coag (Bld) [Time] 121.0 s Critically high 39.5-54. 2 [facility] Comment on above: Performed By: #### P TTHEP ####[facility] Iwrvhtpcqf[address] [place], [place] [address]Dr. Farhat Leal aPTT Coag (Bld) [Time] 27.6 s Critically low 39.5-54.2 [facility] Comment on above: Performed By: #### P TTHEP ####[facility] Dxyjgrzkxl44[address] [place], [place] [address]Dr. Farhat Leal aPTT Coag (Bld) [Time] 139.0 s Critically high 39.5-54. 2 [facility] Comment on above: Performed By: #### P TTHEP ####[facility] Yqotqhloym[address] [place], [place] [address]Dr. Farhat Leal CBC AUTO DIFFon 09-19-2021 BASO # 0.0 103/ul Normal 0.0-0.1 [facility] Comment on above: Performed By: #### C BC ####[facility] Zokzozhvti85[address] [place], [place] [address]Dr. Farhat Leal Basophils/100 WBC (Bld) 0.5 % Normal 0.2-2.0 [facility] Comment on above: Performed By: #### C BC ####[facility] Nocptadsbx33[address] [place], [place] [address]Dr. Farhat Leal EO # 0.2 103/ul Normal 0.0-0.7 [facility] Comment on above: Performed By: #### C BC ####[facility] Vlgxztnjpx[address] [place], [place] [address]DrSkylar Leal Eosinophils/100 WBC (Bld) 2.6 % Normal 0.9-7.0 [facility] Comment on above: Performed By: #### C BC ####[facility] Zpwpvinmgo12[address] [place], [place] [address]Dr. Farhat Leal Erythrocyte distribution width (RBC) [Ratio] 12.5 % Normal 11.0-15.0 [facility] Comment on above: Performed By: #### C BC ####[facility] Pthsliwhwp[address] [place], [place] [address]Dr. Farhat Elvis Hematocrit (Bld) [Volume fraction] 39.2 % Critically low 42.0-54.0 [facility] Comment on above: Performed By: #### C BC ####[facility] Sbzamxledl274[address] [place], [place] [address]Dr. Madelynlorri Elvis Hemoglobin (Bld) [Mass/Vol] 13.3 g/dL Critically low 14.0-18.0 [facility] Comment on above: Performed By: #### C BC ####[facility] Fbqiwychvp815[address] [place], [place] [address]Dr. Madelynlorri Elvis IG # 0.08 10e3/ul Critically high 0.00-0.03 [facility] Comment on above: Performed By: #### C BC ####[facility] Sdkcgxhknj8[address] [place], [place] [address]Dr. Farhat Leal IG % 0.9 % Critically high 0.0-0.5 [facility] Comment on above: Performed By: #### C BC ####[facility] Ypmzufngax9[address] [place], [place] [address]DrSkylar Leal LYMPH # 1.5 103/ul Normal 1.2-3.8 [facility] Comment on above: Performed By: #### C BC ####[facility] Cjhbqgmgle5634[address] [place], [place] [address]Dr. Farhat Leal Lymphocytes/100 WBC (Bld) 17.2 % Critically low 20.5-60.0 [facility] Comment on above: Performed By: #### C BC ####[facility] Thoboukrld[address] [place], [place] [address]Dr. Farhat Leal MANUAL DIFF REQ NO Normal [facility] Comment on above: Performed By: #### C BC ####[facility] Uyecrwvbmx4[address] [place] [address]DrSkylar Farhat Elvis MCH (RBC) [Entitic mass] 31.7 pg Normal 25.9-34.0 [facility] Comment on above: Performed By: #### C BC ####[facility] Zypqwsssoc[address] [place], [place] [address]Dr. Farhat Elvis MCHC (RBC) [Mass/Vol] 33.9 g/dL Normal 29.9-35.2 [facility] Comment on above: Performed By: #### C BC ####[facility] Eyzqzitkvt[address] [place], [place] [address]DrSkylar Madelynlorri Leal MCV (RBC) [Entitic vol] 93.3 fL Normal 80.0-94.0 [facility] Comment on above: Performed By: #### C BC ####[facility] Nzqezxgpbi9764[address] [place], [place] [address]DrSkylar Leal MONO # 1.2 103/ul Critically high 0.3-0.8 [facility] Comment on above: Performed By: #### C BC ####[facility] Mwqcciivrh04[address] [place], [place] [address]Dr. Farhat Leal Monocytes/100 WBC (Bld) 13.7 % Critically high 1.7-12.0 [facility] Comment on above: Performed By: #### C BC ####[facility] Yhbbuznijy90[address] [place], [place] [address]DrSkylar Leal NEUT # 5.5 103/ul Normal 1.4-6.5 [facility] Comment on above: Performed By: #### C BC ####[facility] Wbtawvtofp[address] [place], [place] [address]DrSkylar Leal Neutrophils/100 WBC (Bld) 65.1 % Normal 43.0-75.0 [facility] Comment on above: Performed By: #### C BC ####[facility] Oklzotliwf12[address] [place], [place] [address]DrSkylar Leal Platelet mean volume (Bld) [Entitic vol] 9.6 fL Normal 9.5-13.5 [facility] Comment on above: Performed By: #### C BC ####[facility] Xgacgqhyrh66[address] [place] [address]Dr. Farhat Leal PLT 163 103/ul Normal 150-450 [facility] Comment on above: Performed By: #### C BC ####[facility] Ydvffelrbo6108 [place] [address]Dr. Farhat Leal RBC 4.20 106/ul Critically low 4.70-6.10 [facility] Comment on above: Performed By: #### C BC ####[facility] Bgurpsyncr1305 [place] [address]Dr. Farhat Leal WBC 8.4 103/ul Normal 4.0-11.0 [facility] Comment on above: Performed By: #### C BC ####[facility] Pvviibyhow7[address] [place], [place] [address]Dr. Farhat Leal POINT OF CARE GLUCOSEon Glucose [Mass/Vol] 300 mg/dL Critically high 74-106 [facility] Comment on above: Performed By: #### P OCGLUC ####[facility] Pislmnhtwo[address] [place], [place] [address]Dr. Farhat Leal POTASSIUMon 09-19-2021 Potassium [Moles/Vol] 4.9 mmol/L Normal 3.5-5.1 [facility] Comment on above: Performed By: #### K ####[facility] Lcfxxwccqe064[address] [place], [place] [address]Dr. Farhat Leal PTT HEPARIN MONITORon 2021 aPTT Coag (Bld) [Time] 23.4 s Critically low 39.5-54.2 [facility] Comment on above: Result Comment: repe ated Performed By: #### P TTHEP ####[facility] Yieosfrned[address] [place], [place] [address]Dr. Farhat Elvis aPTT Coag (Bld) [Time] 101.2 s Critically high 39.5-54. 2 [facility] Comment on above: Performed By: #### P TTHEP ####[facility] Vqpcwxotpj[address] [place], [place] [address]Dr. Farhat Elvis aPTT Coag (Bld) [Time] 81.0 s Critically high 39.5-54. 2 [facility] Comment on above: Result Comment: Test Repeated. Critical Value Verified Performed By: #### P TTHEP ####[facility] Jjbqfikpyj[address] [place], [place] [address]Dr. Farhat Elvis CBC AUTO DIFFon 09-18-2021 BASO # 0.0 103/ul Normal 0.0-0.1 [facility] Comment on above: Performed By: #### C BC ####[facility] Zxxnmuhgka[address] [place], [place] [address]Dr. Farhat Leal Basophils/100 WBC (Bld) 0.4 % Normal 0.2-2.0 [facility] Comment on above: Performed By: #### C BC ####[facility] Jmmytfzpde84[address] [place], [place] [address]Dr. Farhat Leal EO # 0.1 103/ul Normal 0.0-0.7 [facility] Comment on above: Performed By: #### C BC ####[facility] Opomfzvgou[address] [place], [place] [address]Dr. Farhat Leal Eosinophils/100 WBC (Bld) 0.8 % Critically low 0.9-7.0 [facility] Comment on above: Performed By: #### C BC ####[facility] Xnyioqmwgq[address] [place], [place] [address]Dr. Farhat Leal Erythrocyte distribution width (RBC) [Ratio] 12.4 % Normal 11.0-15.0 [facility] Comment on above: Performed By: #### C BC ####[facility] Pgmnextahy[address] [place], [place] [address]Dr. Farhat Leal Hematocrit (Bld) [Volume fraction] 41.7 % Critically low 42.0-54.0 [facility] Comment on above: Performed By: #### C BC ####[facility] Mbtwhsoxxy[address] [place] [id number]. Farhat Leal Hemoglobin (Bld) [Mass/Vol] 14.1 g/dL Normal 14.0-18.0 The [facility] Comment on above: Performed By: #### C BC ####[facility] Xaauxjwyil7[address] [place] [id number]. Farhat Leal IG # 0.06 10e3/ul Critically high 0.00-0.03 The [facility] Comment on above: Performed By: #### C BC ####[facility] Xfhqvnewxi6200 [place] [id number]. Farhat Leal IG % 0.6 % Critically high 0.0-0.5 The [facility] Comment on above: Performed By: #### C BC ####[facility] Jspofbmyyt[address] [place] [address]Dr. Farhat Leal LYMPH # 0.6 103/ul Critically low 1.2-3.8 The [facility] Comment on above: Performed By: #### C BC ####[facility] Pgsbbpaolc[address] [place] [address]Dr. Farhat Leal Lymphocytes/100 WBC (Bld) 6.5 % Critically low 20.5-60.0 The [facility] Comment on above: Performed By: #### C BC ####[facility] Dmyvmtrgpr6527 [place] [address]Dr. Farhat Leal MANUAL DIFF REQ NO Normal The [facility] Comment on above: Performed By: #### C BC ####[facility] Rodcfmxkkh4847 [place] [address]Dr. Farhat Leal MCH (RBC) [Entitic mass] 31.6 pg Normal 25.9-34.0 The [facility] Comment on above: Performed By: #### C BC ####[facility] Bgxfptbhub[address] [place], [place] [address]Dr. Farhat Leal MCHC (RBC) [Mass/Vol] 33.8 g/dL Normal 29.9-35.2 The [facility] Comment on above: Performed By: #### C BC ####[facility] [address]zeuajbg[address] [place] [id number]. Farhat Leal MCV (RBC) [Entitic vol] 93.5 fL Normal 80.0-94.0 The [facility] Comment on above: Performed By: #### C BC ####[facility] Ubdgcxvcng3212 [place] [id number]. Farhat Leal MONO # 1.0 103/ul Critically high 0.3-0.8 The [facility] Comment on above: Performed By: #### C BC ####[facility] Nqtdhfklgw1258 [place] [id number]. Farhat Leal Monocytes/100 WBC (Bld) 10.4 % Normal 1.7-12.0 The [facility] Comment on above: Performed By: #### C BC ####[facility] Gjiqsyomrw9[address] [place] [phone]. Farhat Leal NEUT # 7.8 103/ul Critically high 1.4-6.5 The [facility] Comment on above: Performed By: #### C BC ####[facility] Jvvzhxbxoz7907 [place] [id number]. Farhat Leal Neutrophils/100 WBC (Bld) 81.3 % Critically high 43.0-75.0 The [facility] Comment on above: Performed By: #### C BC ####[facility] Bkkfqhevno[address] [place] [id number]. Farhat Leal Platelet mean volume (Bld) [Entitic vol] 9.9 fL Normal 9.5-13.5 The [facility] Comment on above: Performed By: #### C BC ####[facility] Kqqkfqlbpc7035 [place] [id number]. Farhat Leal PLT 169 103/ul Normal 150-450 The [facility] Comment on above: Performed By: #### C BC ####[facility] Qvetbostnr5068 [place] [id number]. Farhat Leal RBC 4.46 106/ul Critically low 4.70-6.10 The [facility] Comment on above: Performed By: #### C BC ####[facility] Yaitphfrxs9765 [place] [id number]. Farhat Leal WBC 9.6 103/ul Normal 4.0-11.0 The [facility] Comment on above: Performed By: #### C BC ####[facility] Wivvzbsdbi0099 [place] [phone]. Farhat Leal BASO # 0.0 103/ul Normal 0.0-0.1 The [facility] Comment on above: Performed By: #### C BC ####[facility] Adoaodjwxg5669 [place] [phone]. Farhat Leal Basophils/100 WBC (Bld) 0.4 % Normal 0.2-2.0 The [facility] Comment on above: Performed By: #### C BC ####[facility] Pwroikykaf5066 [place] [phone]. Farhat Leal EO # 0.1 103/ul Normal 0.0-0.7 The [facility] Comment on above: Performed By: #### C BC ####[facility] Hpvrzvunts7582 [place] [phone]. Farhat Leal Eosinophils/100 WBC (Bld) 1.1 % Normal 0.9-7.0 The [facility] Comment on above: Performed By: #### C BC ####[facility] Iuxribxved[address] [place], [place] [address]Dr. Farhat Leal Erythrocyte distribution width (RBC) [Ratio] 12.6 % Normal 11.0-15.0 The [facility] Comment on above: Performed By: #### C BC ####[facility] Gkgahumqiq3695 [place] [phone]. Farhat Leal Hematocrit (Bld) [Volume fraction] 40.8 % Critically low 42.0-54.0 The [facility] Comment on above: Performed By: #### C BC ####[facility] Vedtudbato7393 [place] [id number]. Farhat Leal Hemoglobin (Bld) [Mass/Vol] 13.6 g/dL Critically low 14.0-18.0 The [facility] Comment on above: Performed By: #### C BC ####[facility] Imkxfxkulh5371 [place] [phone]. Farhat Leal IG # 0.08 10e3/ul Critically high 0.00-0.03 [facility] Comment on above: Performed By: #### C BC ####[facility] Drxbiiiiqr1438 [place] [id number]. Farhat Leal IG % 0.9 % Critically high 0.0-0.5 The [facility] Comment on above: Performed By: #### C BC ####[facility] Gzvlcoqdzp5482 [place] [phone]. Farhat Elvis LYMPH # 0.8 103/ul Critically low 1.2-3.8 [facility] Comment on above: Performed By: #### C BC ####[facility] Ujssbvqonk4806 [place] [address]Dr. Farhat Leal Lymphocytes/100 WBC (Bld) 8.7 % Critically low 20.5-60.0 [facility] Comment on above: Performed By: #### C BC ####[facility] Ghjmjkyvjq7396 [place] [address]Dr. Farhat Leal MANUAL DIFF REQ NO Normal [facility] Comment on above: Performed By: #### C BC ####[facility] Sgwyeyrlez0354 [place] [address]Dr. Farhat Leal MCH (RBC) [Entitic mass] 31.6 pg Normal 25.9-34.0 [facility] Comment on above: Performed By: #### C BC ####[facility] Mrrqssvgaa3340 [place] [address]Dr. Farhat Leal MCHC (RBC) [Mass/Vol] 33.3 g/dL Normal 29.9-35.2 The [facility] Comment on above: Performed By: #### C BC ####[facility] Rtftrwtrys9082 [place] [address]Dr. Farhat Leal MCV (RBC) [Entitic vol] 94.9 fL Critically high 80.0-94.0 [facility] Comment on above: Performed By: #### C BC ####[facility] Apdzwxzixi4359 [place] [id number]. Farhat Leal MONO # 1.0 103/ul Critically high 0.3-0.8 The [facility] Comment on above: Performed By: #### C BC ####[facility] Gvkotziepp7715 [place] [phone]. Farhat Leal Monocytes/100 WBC (Bld) 11.3 % Normal 1.7-12.0 The [facility] Comment on above: Performed By: #### C BC ####[facility] Cihnqwwfmc2939 [place] [phone]. Farhat Leal NEUT # 6.9 103/ul Critically high 1.4-6.5 The [facility] Comment on above: Performed By: #### C BC ####[facility] Jzekefxzxi8888 [place] [phone]. Farhat Leal Neutrophils/100 WBC (Bld) 77.6 % Critically high 43.0-75.0 The [facility] Comment on above: Performed By: #### C BC ####[facility] Cvlgoeflwg6863 [place] [phone]. Farhat Leal Platelet mean volume (Bld) [Entitic vol] 9.7 fL Normal 9.5-13.5 The [facility] Comment on above: Performed By: #### C BC ####[facility] Mtmlqprlba5646 [place] [id number]. Farhat Leal PLT 171 103/ul Normal 150-450 The [facility] Comment on above: Performed By: #### C BC ####[facility] Iopsngnvrz0464 [place] [phone]. Farhat Leal RBC 4.30 106/ul Critically low 4.70-6.10 The [facility] Comment on above: Performed By: #### C BC ####[facility] Hljmlovpeq7147 [place] [phone]. Farhat Leal WBC 8.9 103/ul Normal 4.0-11.0 The [facility] Comment on above: Performed By: #### C BC ####[facility] Wilkssmzfh6462 [place] [address]Dr. Farhat Leal Covid-19 PCR (CVDTB)on SARS-CoV-2 (COVID-19) RNA JOSH+probe Ql (Unsp spec) Not detected Normal NOT DETECTED [facility] Comment on above: Result Comment: When [...] for this test is supported by the [employer] of Health and Human Service's declaration that [...] be used). Performed By: #### C VDTBH ####[facility] Yabgnqfgvo7062 [place] [address]Dr. Farhat Leal PROF 14(COMP METB)on 022 Albumin [Mass/Vol] 2.6 g/dL Critically low 3.4-5.0 Th [facility] [place] [facility] Comment on above: Performed By: #### C MP ####[facility] Tfwemckmhl2257 [place] [address]Dr. Farhat Leal Albumin/Globulin [Mass ratio] 0.7 {ratio} Normal [facility] Comment on above: Performed By: #### C MP ####[facility] Jrmqcwpqhc3525 [place] [address]DrSkylar Leal ALP [Catalytic activity/Vol] 88 U/L Normal 46-116 [facility] Comment on above: Performed By: #### C MP ####[facility] Pcfpgpwgna3413 [place] [address]Dr. Farhat Leal ALT [Catalytic activity/Vol] 15 U/L Critically low 16-63 [facility] Comment on above: Performed By: #### C MP ####[facility] Vmytanagtw5318 [place] [phone]. Farhat Leal Anion gap [Moles/Vol] 11.7 mmol/L Normal Th [facility] [place] [facility] Comment on above: Performed By: #### C MP ####[facility] Bswiunydfh5997 [place] [phone]. Farhat Leal AST [Catalytic activity/Vol] 25 U/L Normal 15-37 [facility] Comment on above: Performed By: #### C MP ####[facility] Fgpoagbade[address] [place], [place] [address]Dr. Farhat Leal Bilirubin [Mass/Vol] 0.6 mg/dL Normal 0.2-1.0 [facility] Comment on above: Performed By: #### C MP ####[facility] Cadoraqpym[address] [place], [place] [address]Dr. Farhat Leal Calcium [Mass/Vol] 8.9 mg/dL Normal 8.5-10.1 [facility] Comment on above: Performed By: #### C MP ####[facility] Xdrndiaktn878[address] [place], [place] [address]Dr. Farhat Leal Chloride [Moles/Vol] 93 mmol/L Critically low 98-107 [facility] Comment on above: Performed By: #### C MP ####[facility] Dcnfmdnzth[address] [place], [place] [address]Dr. Farhat Leal CO2 [Moles/Vol] 28.9 mmol/L Normal 21.0-32.0 The [facility] Comment on above: Performed By: #### C MP ####[facility] Aqrdvocchl[address] [place], [place] [address]Dr. Farhat Leal Creatinine [Mass/Vol] 2.09 mg/dL Critically high 0.70-1.30 [facility] Comment on above: Performed By: #### C MP ####[facility] Uekbjytoxy165[address] [place], [place] [address]Dr. Farhat Leal EGFR-AF [place] 38 mL/min/1.73m2 Critically low >=60 [facility] Comment on above: Performed By: #### C MP ####[facility] Hcqvatkaqy9350 [place] [address]Dr. Farhat Elvis EGFR-NON AF [place] 31 mL/min/1.73m2 Critically low >=60 [facility] Comment on above: Performed By: #### C MP ####[facility] Swydfspulj7[address] [place], [place] [address]Dr. Madelynlorri Elvis Globulin (S) [Mass/Vol] 3.7 g/dL Normal [facility] Comment on above: Performed By: #### C MP ####[facility] Ydebaugehs852[address] [place], [place] [address]Dr. Farhat Leal Glucose [Mass/Vol] 214 mg/dL Critically high 74-106 T [facility] Comment on above: Performed By: #### C MP ####[facility] Qkuntczkih755[address] [place], [place] [address]Dr. Farhat Leal Potassium [Moles/Vol] 5.6 mmol/L Critically high 3.5-5.1 [facility] Comment on above: Performed By: #### C MP ####[facility] Uwiyrpvtvl[address] [place], [place] [address]Dr. Farhat Leal Protein [Mass/Vol] 6.3 g/dL Critically low 6.4-8.2 Th [facility] [place] [facility] Comment on above: Performed By: #### C MP ####[facility] Lodpauxpli9[address] [place], [place] [address]Dr. Farhat Leal Sodium [Moles/Vol] 128 mmol/L Critically low 136-145 Th [facility] [place] [facility] Comment on above: Performed By: #### C MP ####[facility] Bfkhcrztfk60[address] [place], [place] [address]Dr. Farhat Leal Urea nitrogen [Mass/Vol] 65.0 mg/dL Critically high 7.0-18.0 [facility] Comment on above: Performed By: #### C MP ####[facility] Qhxpujgdfw66[address] [place], [place] [address]Dr. Farhat Leal Urea nitrogen/Creatinine [Mass ratio] 31.1 mg/mg Normal [facility] Comment on above: Performed By: #### C MP ####[facility] Tcynnrvnhb[address] [place], [place] [address]Dr. Farhat Elvis Albumin [Mass/Vol] 2.5 g/dL Critically low 3.4-5.0 Th e [facility] Comment on above: Performed By: #### T MYRIAM, CMP ####[facility] Qepiffhmkj40[address] [place], [place] [address]Dr. Farhat Elvis Albumin/Globulin [Mass ratio] 0.7 {ratio} Normal [facility] Comment on above: Performed By: #### T MYRIAM, CMP ####[facility] Lwdsngrshr8[address] [place], [place] [address]Dr. Madelynlorri Leal ALP [Catalytic activity/Vol] 83 U/L Normal 46-116 The [facility] Comment on above: Performed By: #### T MYRIAM, CMP ####[facility] Hfyexznooc475[address] [place], [place] [address]Dr. Farhat Elvis ALT [Catalytic activity/Vol] 16 U/L Normal 16-63 The [facility] Comment on above: Performed By: #### T MYRIAM, CMP ####[facility] Qzvlqzncoe8[address] [place], [place] [address]Dr. Madelynlorri Elvis Anion gap [Moles/Vol] 9.7 mmol/L Normal [facility] Comment on above: Performed By: #### T MYRIAM, CMP ####[facility] Zqnnnunsxg500[address] [place], [place] [address]Dr. Madelynlorri Leal AST [Catalytic activity/Vol] 27 U/L Normal 15-37 The [facility] Comment on above: Performed By: #### T MYRIAM, CMP ####[facility] Spwetwfpls[address] [place], [place] [address]Dr. Farhat Leal Bilirubin [Mass/Vol] 0.5 mg/dL Normal 0.2-1.0 [facility] Comment on above: Performed By: #### T MYRIAM, CMP ####[facility] Bnusgapaks[address] [place], [place] [address]Dr. Farhat Leal Calcium [Mass/Vol] 8.8 mg/dL Normal 8.5-10.1 [facility] Comment on above: Performed By: #### T MYRIAM, CMP ####[facility] Cynpkgngdb015[address] [place], [place] [address]Dr. Farhat Leal Chloride [Moles/Vol] 95 mmol/L Critically low 98-107 The [facility] Comment on above: Performed By: #### T MYRIAM, CMP ####[facility] Nzekxeclas[address] [place], [place] [address]Dr. Farhat Leal CO2 [Moles/Vol] 30.5 mmol/L Normal 21.0-32.0 [facility] Comment on above: Performed By: #### T MYRIAM, CMP ####[facility] Jnzfwfafwv216[address] [place], [place] [address]Dr. Farhat Leal Creatinine [Mass/Vol] 2.18 mg/dL Critically high 0.70-1.30 [facility] Comment on above: Performed By: #### T MYRIAM, CMP ####[facility] Owpfllxpub7[address] [place], [place] [address]Dr. Farhat Leal EGFR-AF [place] 36 mL/min/1.73m2 Critically low >=60 [facility] Comment on above: Performed By: #### T MYRIAM, CMP ####[facility] Lukymghddr[address] [place], [place] [address]Dr. Farhat Leal EGFR-NON AF [place] 30 mL/min/1.73m2 Critically low >=60 [facility] Comment on above: Performed By: #### T MYRIAM, CMP ####[facility] Hlzprbdviq377[address] [place], [place] [address]Dr. Farhat Leal Globulin (S) [Mass/Vol] 3.5 g/dL Normal [facility] Comment on above: Performed By: #### T MYRIAM, CMP ####[facility] Zknbrfudnf64[address] [place], [place] [address]Dr. Farhat Leal Glucose [Mass/Vol] 141 mg/dL Critically high 74-106 [facility] Comment on above: Performed By: #### T MYRIAM, CMP ####[facility] Spwyjlwmri9[address] [place], [place] [address]Dr. Farhat Leal Potassium [Moles/Vol] 5.2 mmol/L Critically high 3.5-5.1 [facility] Comment on above: Performed By: #### T MYRIAM, CMP ####[facility] Udilaydrls[address] [place], [place] [address]Dr. Farhat Leal Protein [Mass/Vol] 6.0 g/dL Critically low 6.4-8.2 Th [facility] [place] [facility] Comment on above: Performed By: #### T MYRIAM, CMP ####[facility] Ojaoffpxps12[address] [place], [place] [address]Dr. Farhat Leal Sodium [Moles/Vol] 130 mmol/L Critically low 136-145 Th [facility] [place] [facility] Comment on above: Performed By: #### T MYRIAM, CMP ####[facility] Ghxikxmgxj47[address] [place], [place] [address]Dr. Farhat Leal Urea nitrogen [Mass/Vol] 63.0 mg/dL Critically high 7.0-18.0 [facility] Comment on above: Performed By: #### T MYRIAM, CMP ####[facility] Mtfqrxxugk655[address] [place], [place] [address]Dr. Farhat Leal Urea nitrogen/Creatinine [Mass ratio] 28.9 mg/mg Normal [facility] Comment on above: Performed By: #### T MYRIAM, CMP ####[facility] Vbjosrpepf[address] [place], [place] [address]Dr. Farhat Leal PROTIMEon 09-18-2021 INR Coag (PPP) [Relative time] 1.06 {INR} Normal [facility] Comment on above: Performed By: #### P T, PTT ####[facility] Jecagsvojj[address] [place], [place] [address]Dr. Farhat Leal INR GUIDELINES SEE BELOW Normal [facility] Comment on above: Result Comment: MALINA RED INR: 2.0 - 3.0 CONDITIONS NOT LISTED BELOW 2.5 - 3.5 FOR PROSTHETIC HEART VALVE REPLACEMENT 2.5 - 3.5 RECURRENT THROMBOSIS Performed By: #### P T, PTT ####[facility] Wommetguab[address] [place], [place] [address]Dr. Farhat Leal PT Coag (PPP) [Time] 11.4 s Normal 9.0-11.6 [facility] Comment on above: Performed By: #### P T, PTT ####[facility] Bneyzy[address] [place], [place] [address]Qc. Farhat Leal PTTon 09-18-2021 aPTT Coag (Bld) [Time] 27.9 s Normal 22.3-36.2 [facility] Comment on above: Performed By: #### P T, PTT ####[facility] Iiocarxjis4[address] [place], [place] [address]Pw. Farhat Leal TSHon 09-18-2021 TSH 7.099 uIU/mL Critically high 0.358-3.740 [facility] Comment on above: Performed By: #### T SH, CMP ####[facility] Omvsucmyes2426 [place] [id number]. Farhat Leal US SALOME DOP LEG RTon 09-19-19 22 US SALOME DOP LEG RT Normal [facility] XR CHEST 1 Von 09-18-2021 XR CHEST 1 V Normal [facility] XR HIP RT 2 3V W PELVISon XR HIP RT 2 3V W PELVIS Normal [facility] Vital Signs Date Time Vital Sign Value Performing Clinician Facility 07-20-2022 13:35-0400 Body temperature 97.4 [degF] DO Devon Ball Work Phone: [facility] 07-20-2022 13:35-0400 Diastolic blood pressure 50 mm[Hg] DO Devon Ball Work Phone: [facility] 07-20-2022 13:35-0400 Heart rate 67 /min DO Devon Ball Work Phone: [facility] 07-20-2022 13:35-0400 Respiratory rate 20 /min DO Devon Ball Work Phone: [facility] 07-20-2022 13:35-0400 Systolic blood pressure 98 mm[Hg] DO Devon Ball Work Phone: [facility] 06-29-2022 14:46-0400 Body height 193.04 cm DO Devon Moreira Work Phone: [facility] 02-26-2022 13:11-0500 Body temperature 96.6 [degF] Hina Peterson MD Work Phone: [facility] 02-26-2022 13:11-0500 Diastolic blood pressure 75 mm[Hg] Hina Peterson MD Work Phone: [facility] 02-26-2022 13:11-0500 Heart rate 75 /min Hina Peterson MD Work Phone: [facility] 02-26-2022 13:11-0500 Systolic blood pressure 88 mm[Hg] Hina Peterson MD Work Phone: [facility] 02-05-2022 08:29-0500 Body temperature 96.69 [degF] [facility] Work Phone: [facility] 02-05-2022 08:29-0500 Diastolic blood pressure 42 mm[Hg] [facility] Work Phone: [facility] 02-05-2022 08:29-0500 Heart rate 79 /min [facility] Work Phone: [facility] 02-05-2022 08:29-0500 SaO2% (BldA) [Mass fraction] 100 % [facility] Work Phone: [facility] 02-05-2022 08:29-0500 Systolic blood pressure 72 mm[Hg] [facility] Work Phone: [facility] 01-12-2022 11:00-0500 Diastolic blood pressure 54 mm[Hg] Alissa Major MEDICAL STAFF SPECIALIST.BINITROTOLUENE OPERATOR Work Phone: [facility] 01-12-2022 11:00-0500 Heart rate 88 /min Alissa Major MEDICAL STAFF SPECIALIST.BINITROTOLUENE OPERATOR Work Phone: [facility] 01-12-2022 11:00-0500 SaO2% (BldA) [Mass fraction] 93 % Alissa Major MEDICAL STAFF SPECIALIST.BINITROTOLUENE OPERATOR Work Phone: [facility] 01-12-2022 11:00-0500 Systolic blood pressure 96 mm[Hg] [facility] MEDICAL STAFF SPECIALIST.BINITROTOLUENE OPERATOR Work Phone: [facility] 01-12-2022 10:12-0500 Body temperature 97.9 [degF] Alissa [facility] MEDICAL STAFF SPECIALIST.BINITROTOLUENE OPERATOR Work Phone: [facility] 01-12-2022 10:12-0500 Respiratory rate 18 /min [facility] MEDICAL STAFF SPECIALIST.BINITROTOLUENE OPERATOR Work Phone: [facility] 11-17-2021 15:59-0400 Body height 193 cm No Reeder DO Work Phone: [facility] 11-17-2021 15:59-0400 Body weight 111.58 kg No Reeder DO Work Phone: [facility] 11-17-2021 15:59-0400 Diastolic blood pressure 59 mm[Hg] No Reeder DO Work Phone: [facility] 11-17-2021 15:59-0400 Heart rate 86 /min No Reeder DO Work Phone: [facility] 11-17-2021 15:59-0400 SaO2% (BldA) [Mass fraction] 97 % No Reeder DO Work Phone: [facility] 11-17-2021 15:59-0400 Systolic blood pressure 104 mm[Hg] No Reeder DO Work Phone: [facility] Encounters Encounter Date Encounter Type Care Provider Facility Start: 02-17-2023 End: 02-17-2023 ambulatory Devon Moreira Other [facility] Other Start: 02-17-2023 Telephone encounter Devon Moreira [facility] Start: 01-14-2023 End: 01-14-2023 ambulatory Devon Moreira Other [facility] Other Start: 01-14-2023 Sbsq nursing facil c are/day minor complj 15 min Devon [facility] Start: 12-10-2022 End: 12-10-2022 ambulatory Devon Moreira Other [facility] Other Start: 12-10-2022 Sbsq nursing facil c are/day minor complj 15 min Devon [facility] Start: 11-12-2022 End: 11-12-2022 ambulatory Devon Moreira Other [facility] Other Start: 11-12-2022 Sbsq nursing facil c are/day minor complj 15 min [facility] Start: 10-16-2022 Refill Asia Pike MD Work Phone: [facility] Comment on above: Med Change Request Start: 10-12-2022 End: 10-12-2022 ambulatory Devon Moreira Other [employer] Other Start: 10-12-2022 Telephone encounter Devon Moreira [facility] Start: 10-08-2022 End: 10-08-2022 ambulatory Devon Moreira Other [employer] Other Start: 10-08-2022 Sbsq nursing facil c are/day new problem 25 min [facility] Start: 09-22-2022 [facility]: Rx Refills Start: 09-10-2022 End: 09-10-2022 ambulatory Devon Moreira Other [employer] Other Start: 09-10-2022 Sbsq nursing facil c are/day new problem 25 min Devon [facility] Start: 09-09-2022 End: 09-09-2022 ambulatory [facility] Start: 08-06-2022 End: 08-06-2022 ambulatory Devon Moreira Other [employer] Other Start: 08-06-2022 Sbsq nursing facil c are/day new problem 25 min [facility] Start: 07-22-2022 End: 07-22-2022 ambulatory Devon Moreira Other [employer] Other Start: 07-22-2022 Telephone encounter Devon NUNEZ [facility] Start: 07-20-2022 End: 07-20-2022 ambulatory Sadia Aguilar Facility:[facility] Start: 07-20-2022 End: 07-20-2022 ambulatory DO Devon Moreira Work Phone: [facility] Work Phone: Start: 07-20-2022 End: 07-20-2022 Discharged Recurring DO Devon Moreira Work Phone: [facility] Work Phone: Start: 07-13-2022 End: 07-13-[address] DEVON MOREIRA Facility:[facility]1 Start: 07-10-2022 End: 07-10-[address] DEVON MOREIRA Facility:[facility] Start: 07-03-2022 End: 07-03-[address] DEVON MOREIRA Facility:[facility]1 Start: 06-26-2022 End: 06-26-[address] DEVON MOREIRA Facility:[facility] Start: 06-26-2022 End: 06-26-[address] DEVON MOREIRA Facility:[facility]1 Start: 06-25-2022 End: 06-25-2022 ambulatory Devon Moreira Other [employer] Other Start: 06-25-2022 Sbsq nursing facil c are/day minor complj 15 min [facility] Start: 06-19-2022 End: 06-19-[address] DEVON MOREIRA Facility:[facility] Start: 06-15-2022 End: 07-15-2022 ambulatory SHAIKH Kate MURRAY Facility:[facility]1 Start: 06-12-2022 End: 06-12-[address] DOCTOR WALSH Facility:[facility]1 Start: 06-05-2022 Sbsq nursing facil c are/day new problem 25 min Devon Moreira [facility] Start: 06-05-2022 End: 06-05-[address] DEVON MOREIRA [facility] [employer] Other Start: 05-29-2022 End: 05-29-[address] DEVON MOREIRA Facility:[facility]1 Start: 05-22-2022 End: 05-22-[address] DEVON MOREIRA Facility:[facility]1 Start: 05-20-2022 End: 05-20-[address] DEVON MOREIRA Facility:[facility]1 Start: 05-18-2022 End: 06-12-2022 ambulatory SHAIKH Kate MURRAY Facility:[facility] Start: 05-15-2022 End: 05-15-[address] DEVON MOREIRA Facility:[facility]1 Start: 05-13-2022 End: 05-13-2022 ambulatory Van Olivarez MEDICAL STAFF SPECIALIST.BINITROTOLUENE OPERATOR Work Phone: Kidney [facility] Comment on above: results Start: 05-13-2022 E-mail encounter fro m caregiver Van Olivarez APRN.BINITROTOLUENE OPERATOR Work Phone: [facility] Start: 05-08-2022 End: 05-08-[address] DEVON MOREIRA Facility:[facility] Start: 05-07-2022 End: 05-07-2022 ambulatory Devon Moreira Other [employer] Other Start: 05-07-2022 Sbsq nursing facil c are/day new problem 25 min Devon [facility] Start: 05-06-2022 End: 05-06-2022 ambulatory [...] MOREIRA Facility:[facility]1 Start: 04-02-2022 ambulatory Van cortes MEDICAL STAFF SPECIALIST.BINITROTOLUENE OPERATOR Work Phone: [facility] [place] Start: 04-01-2022 End: 04-01-[address] DEVON MOREIRA Facility:[facility]1 Start: 03-22-2022 Refill Asia Pike MD Work Phone: [facility] Comment on above: Med Change Request Start: 03-21-2022 ambulatory SHAIKH Kate MURRAY Facilit y:H1 Start: 03-11-2022 End: 03-11-[address] DEVON MOREIRA Facility:[facility]1 Start: 03-10-2022 End: 03-10-2022 ambulatory [facility] Start: 02-27-2022 Refill Samira Serna [facility] Comment on above: Rx Refills Start: 02-26-2022 End: 02-26-2022 ambulatory DEVON MOREIRA Facility:[facility] Start: 02-26-2022 End: 02-26-2022 Patient encounter procedure [...] Start: 02-05-2022 End: 02-06-2022 ambulatory ARTUR CHEN Facility:[facility] Start: 02-05-2022 End: 02-05-2022 Patient encounter procedure [facility] Work Phone: [facility] Comment on above: Kidney replaced by t ransplant (Primary Dx); 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; 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 Start: 01-26-2022 End: 01-26-[address] DEVON MOREIRA Facility:[facility]1 Start: 01-20-2022 Telephone encounter Van Olivarez APRN.BINITROTOLUENE OPERATOR Work Phone: Kidney Medicine [facility] Comment on above: Results Start: 01-19-2022 End: 01-19-[address] DEVON MOREIRA Facility:[facility]1 Start: 01-16-2022 ambulatory SHAIKH Kate MURARY Facilit y:H1 Start: 01-12-2022 End: 01-12-2022 Subsequent hospital visit by physician Alissa Chavira APRN.BINITROTOLUENE OPERATOR Work Phone: [facility] Comment on above: ILIANA (acute kidney in jury) (HCC) [N17.9] Start: 12-30-2021 End: 12-30-2021 ambulatory Paresh Fonseca MD Work Phone: Infectious Disease Comment on above: MRSA bacteremia (Arabella munira Dx); Diabetic foot ulcer with osteomyelitis (HCC) Start: 12-30-2021 End: 12-30-2021 Telemedicine consultation with patient Paresh Fonseca MD Work Phone: [facility] Start: 12-29-2021 End: 12-29-[address] [...] Start: 12-08-2021 Orders Only Artur Jennyfer ry MEDICAL STAFF SPECIALIST.BINITROTOLUENE OPERATOR Work Phone: Trans[facility] Center Comment on above: Kidney replaced by t ransplant (Primary Dx) Start: 12-07-2021 ambulatory Paresh Fonseca MD Work Phone: [facility] Comment on above: CoPat Start (copat s top 12/27/21) Start: 12-05-2021 Telephone encounter Paresh Fonseca MD Work Phone: Infectious Disease Comment on above: Patient Update (evus held discussion/) Start: 12-01-2021 Follow-up encounter [facility] Provider [facility] Start: 12-01-2021 Patient encounter procedure [facility] Prov ider [facility] Department Start: 11-23-2021 End: 11-28-2021 Evaluation and [...] encounter Start: 11-14-2021 End: 11-15-[address] [facility] Sebastian [facility] Facility:H1 Start: 10-24-2021 End: 11-15-2021 ambulatory DIAMOND Kate THOMPSONLIZZY Facility:H1 Start: 10-22-2021 End: 10-23-2021 ambulatory [facility] Facility:H1 Start: 10-06-2021 ambulatory Van cortes MEDICAL STAFF SPECIALIST.BINITROTOLUENE OPERATOR Work Phone: [facility] Start: 09-30-2021 Refill Asia Pike MD Work Phone: [facility] Comment on above: Refill Request Start: 09-19-2021 End: 09-24-2021 Evaluation and management of inpatient DR PROSPER LEES Facility:H1 Start: 09-18-2021 End: 09-19-[address] DEVON MOREIRA Facility:[facility]1 Start: 07-11-2021 Refill Asia Pike MD Work Phone: [facility] Comment on above: Refill Request Start: 06-05-2021 Telephone encounter Van Olivarez MEDICAL STAFF SPECIALIST.BINITROTOLUENE OPERATOR Work Phone: [facility] Comment on above: Results Start: 02-05-2021 End: 02-13-2021 ambulatory UNKNOWN PROVIDER Facility:[facility] [place] Procedures Date Procedure Procedure Detail Performing Clinician Start: 02-05-2022 Creatinine other source Asia Pike MD Work Phone: Start: 02-05-2022 Urnls dip stick/tabl et rgnt auto w/o microscopy Asia Pike MD Work Phone: Start: 01-12-2022 Prothrombin time Alissa Chavira MEDICAL STAFF SPECIALIST.BINITROTOLUENE OPERATOR Work Phone: Start: 12-01-2021 PACEMAKER CLINIC CHECK [facility] Provider Start: 11-29-2021 Microscopic examinat ion of blood, culture DR PROSPER LEES Comment on above: Performed By: #### B [id number] ####[facility] [id number] [place], [place] [id number]. Madelynlorri Leal Start: 11-27-2021 Insertion of Infusio [...] renal transplant KIDNEY TRANSPLANT STATUS Van Olivarez MEDICAL STAFF SPECIALIST.[facility] Work Phone: History of renal transplant Kidney replaced by transplant Artur Leesjasvir MEDICAL STAFF SPECIALIST.BINITROTOLUENE OPERATOR Work Phone: History of renal transplant Kidney replaced by transplant [facility] Work Phone: History of renal transplant Devon Ball Other History of renal transplant Kidney replaced by transplant Asia Pike MD Work Phone: Plan of Treatment Date Care Activity Detail Author Start: 02-26-2023 BP CONTROLLED (<130/80) BP CONTROLLE D (<130/80) [facility] Start: 02-05-2023 BP CONTROLLED (<130/80) BP CONTROLLE D (<130/80) [facility] Start: 01-12-2023 BP CONTROLLED (<130/80) BP CONTROLLE D (<130/80) [facility] Start: 11-17-2022 BP CONTROLLED (<130/80) BP CONTROLLE D (<130/80) [facility] Start: 10-16-2022 Influenza vaccination [facility] Start: 04-08-2022 BP CONTROLLED (<130/80) BP CONTROLLE D (<130/80) [facility] Start: 02-15-2022 ADVANCE DIRECTIVE DISCUSSION ADVANCE DIRECTIVE DISCUSSION [facility] Start: 02-15-2022 DEPRESSION ASSESSMENT DEPRESSION ASS ESSMENT [facility] Start: 02-05-2022 COVID-19 VACCINE (5 - Yung risk series) COVID-19 VACCINE (5 - Yung risk series) [facility] Start: 11-27-2021 COVID-19 VACCINE (4 - Booster for Yung series) COVID-19 VACCINE (4 - Booster for Yung series) [facility] Start: 11-04-2021 Hemoglobin A1c/Hemoglobin.total in Blood HBA1C [facility] Start: 10-16-2021 Influenza vaccination [facility] Start: 03-26-2021 COVID-19 VACCINE (3 - Yung risk 3-dose series) COVID-19 VACCINE (3 - Yung risk 3-dose series) [facility] Start: 03-26-2021 COVID-19 VACCINE (3 - Yung risk series) COVID-19 VACCINE (3 - Yung risk series) [facility] Start: 02-15-2021 ADVANCE DIRECTIVE DISCUSSION ADVANCE DIRECTIVE DISCUSSION [facility] Start: 02-15-2021 DEPRESSION ASSESSMENT DEPRESSION ASS ESSMENT [facility] Start: 01-05-2016 Hepatitis B screening URINE AL BUMIN:CREATININE RATIO [facility] Start: 04-06-2015 Hemoglobin A1c/Hemoglobin.total in Blood HBA1C [facility] Start: 11-22-2010 Hepatitis B surface antibody level LDL CHOLESTEROL [facility] Start: 2009 ADULT PREVNAR-13 ADULT PREVNAR-[address] [facility] Start: 2009 PNEUMOVAX AGE 65 AND OVER WITH 5YR LOOKBACK (#1) PNEUMOVAX AGE 65 AND OVER WITH 5YR LOOKBACK (#1) [facility] Start: 1994 SHINGRIX VACCINE (1 of 2) SHINGRIX VACCINE (1 of 2) [facility] Start: 10-18-1963 HEPATITIS A (1 of 2 - Risk 2-dose series) HEPATITIS A (1 of 2 - Risk 2-dose series) [facility] Start: 10-18-1963 Hepatitis A Vaccine (1 of 2 - Risk 2-dose series) Hepatitis A Vaccine (1 of 2 - Risk 2-dose series) [facility] Start: 10-18-1963 SHINGRIX VACCINE (1 of 2) SHINGRIX VACCINE (1 of 2) [facility] Start: 10-18-1963 Urine microalbumin profile [facility] Start: 1962 ANNUAL PCP TEAM FURRIER DESIGNER MATTHEW DISEASE VISIT ANNUAL PCP TEAM CHRONIC DISEASE VISIT [facility] Start: 1956 Adult depression screening assessment DEPRESSION SCREENING [facility] Start: 1954 3 comp foot exam completed DIABETIC FOOT EXAM [facility] Start: 1954 Hepatitis C antibody , confirmatory test DILATED RETINAL EXAM [facility] Start: 1950 Pneumococcal Vaccine : 65+ (1 - PCV) Pneumococcal Vaccine: 65+ (1 - PCV) [facility] Start: 1950 PNEUMOCOCCAL: 65+ (1 - PCV) PNEUMOCOCCAL: 65+ (1 - PCV) [facility] Start: 1945 HEPATITIS A (1 of 2 - Risk 2-dose series) HEPATITIS A (1 of 2 - Risk 2-dose series) [facility] URINALYSIS, REFLEX MICROSCOPIC URINALYSIS, REFLEX MICROSCOPIC Lab Routine Screening for genitourinary condition Ordered: 10/06/2021 [facility] Work Phone: Comment on above: Ordered: 10/06/2021 URINALYSIS, REFLEX MICROSCOPIC URINALYSIS, REFLEX MICROSCOPIC Lab Routine Screening for genitourinary condition Ordered: 04/02/2022 [facility] Work Phone: Comment on above: Ordered: 04/02/2022 End: 11-17-2022 US LEG ARTERIAL PERIPH UNL VAS LAB US LEG ARTERIAL PERIPH UNL VAS LAB Vascular Lab Routine PAD (peripheral artery disease) (HCC) Nonhealing ulcer of heel (HCC) 1 Occurrences starting 11/17/2021 until 11/17/2022 [facility] Work Phone: Comment on above: 1 Occurrences starti ng 11/17/2021 until 11/17/2022 End: 11-17-2022 US LEG VEIN DVT UNL VAS LAB US LEG VEIN DVT UNL VAS LAB Vascular Lab Routine Acute deep vein thrombosis (DVT) of proximal end of right lower extremity (HCC) 1 Occurrences starting 11/17/2021 until 11/17/2022 [facility] Work Phone: Comment on above: 1 Occurrences starti ng 11/17/2021 until 11/17/2022 [facility] BROTH[facility] & VAS BROTHERS CT & VAS [facility] Immunizations Immunization Date Immunization Notes Care Provider Fa [facility] 12-11-2021 COVID-19 booster vaccine, age 12+ yr, bivalent (PFIZER-BIONTECH) Paresh Fonseca MD Work Phone: [facility] 12-11-2021 influenza, high-dose , quadrivalent vaccine (FLUZONE HIGH DOSE QUADRIVALENT) Paresh Fonseca MD Work Phone: [facility] 12-11-2021 influenza virus vaccine, unspecified formulation Ariadna [email or web address] [facility] 03-09-2011 influenza virus vaccine, unspecified formulation Van Olivarez MEDICAL STAFF SPECIALIST.BINITROTOLUENE OPERATOR Work Phone: [facility] 12-17-2007 influenza virus vaccine, unspecified formulation Van Sher MEDICAL STAFF SPECIALIST.BINITROTOLUENE OPERATOR Work Phone: [facility] Work Phone: 02-11-2006 influenza virus vaccine, unspecified formulation Van Sher MEDICAL STAFF SPECIALIST.BINITROTOLUENE OPERATOR Work Phone: [facility] Work Phone: 12-07-2003 influenza virus vaccine, unspecified formulation Vanbetzy Olivarez MEDICAL STAFF SPECIALIST.BINITROTOLUENE OPERATOR Work Phone: [facility] Work Phone: 12-07-2003 pneumococcal polysaccharide vaccine, 23 valent Van Olivarez MEDICAL STAFF SPECIALIST.BINITROTOLUENE OPERATOR Work Phone: [facility] Work Phone: NEGATED: Highlighted row has not occurred!12-10-2021 COVID-19 booster vaccine, age 12+ yr, bivalent (PFIZER-BIONTBridgeLux) Paresh Fonseca MD Work Phone: [facility] NEGATED: Highlighted row has not occurred!12-10-2021 influenza, high-dose, quadrivalent vaccine (FLUZONE HIGH DOSE QUADRIVALENT) Paresh Fonseca MD Work Phone: [facility] Payers Date Payer Category Payer Medicare MEDICARE MEDICAR E A AND B [id number] 2009-Present [phone] [place] [address] Medicare [id number] 2009 Medicare MEDICARE MEDICAR E A AND B [id number] 2009-Present [phone] [place] [address] Medicare [id number] 2009 Unknown [employer] [place] [employer] [place] MEDIC[place] SUPPLEMENT [id number] 2009-Present [phone] [address] [place] [address] Indemnity [id number] [id number] 2009 Unknown [employer] [place] [employer] [place] MEDICARE SUPPLEMENT [id number] 2009-Present [phone] [address] [place] [address] Indemnity [id number] [id number] 2009 Unknown [id number] 2.16.8 [id number] 2009 Unknown [id number] 1959 Medicare [id number] 1959 Self-pay 1944 Unknown [id number] 2.16.840.1.722820.3.579.2.732 1944 Unknown [id number] 2.16.840.1.199034.3.579.2.593 1944 Unknown [id number] 2.16.840.1.084476.3.579.2.593 1944 Unknown [id number] 2.16.840.1.812817.3.579.2.593 1944 Unknown [id number] 2.16.840.1.060084.3.579.2.593 1944 Unknown [id number] 2.16.840.1.570959.3.579.2.593 1944 Unknown [id number] 2.16.840.1.917363.3.579.2.593 1944 Unknown [id number] 2.16.840.1.388443.3.579.2.593 1944 Unknown [id number] 2.16.840.1.680758.3.579.2.593 1944 Unknown [id number] 2.16.840.1.151806.3.579.2.593 1944 Unknown [id number] 2.16.840.1.448605.3.579.2.593 1944 Unknown [id number] 2.16.840.1.708032.3.579.2.593 1944 Unknown [id number] 2.16.840.1.876155.3.579.2.593 1944 Unknown [id number] 2.16.840.1.167556.3.579.2.593 1944 Unknown [id number] 2.16.840.1.324700.3.579.2.593 1944 Unknown [id number] 2.16.840.1.431815.3.579.2.593 1944 Unknown [id number] 2.16.840.1.923426.3.579.2.593 1944 Unknown [id number] 2.16.840.1.148209.3.579.2.593 1944 Unknown [id number] 2.16.840.1.329358.3.579.2.593 1944 Unknown [id number] 2.16.840.1.892666.3.579.2.593 1944 Unknown [id number] 2.16.840.1.590673.3.579.2.593 1944 Unknown [id number] 2.16.840.1.890979.3.579.2.593 1944 Unknown [id number] 2.16.840.1.654953.3.579.2.593 1944 Unknown [id number] 2.16.840.1.086180.3.579.2.593 1944 Unknown [id number] 2.16.840.1.378331.3.579.2.593 1944 Unknown [id number] 2.16.840.1.723581.3.579.2.593 1944 Unknown [id number] 2.16.840.1.791167.3.579.2.593 1944 Unknown [id number] 2.16.840.1.534457.3.579.2.593 1944 Unknown [id number] 2.16.840.1.647379.3.579.2.593 1944 Unknown [id number] 2.16.840.1.198369.3.579.2.593 1944 Unknown [id number] 2.16.840.1.421034.3.579.2.593 1944 Unknown [id number] 2.16.840.1.075952.3.579.2.593 1944 Unknown [id number] 2.16.840.1.191289.3.579.2.593 1944 Unknown [id number] 2.16.840.1.154740.3.579.2.593 1944 Unknown [id number] 2.16.840.1.492118.3.579.2.593 1944 Unknown [id number] 2.16.840.1.768471.3.579.2.593 1944 Unknown [id number] 2.16.840.1.417562.3.579.2.593 1944 Unknown [id number] 2.16.840.1.302980.3.579.2.593 1944 Unknown [id number] 2.16.840.1.315433.3.579.2.593 1944 Unknown [id number] 2.16.840.1.197612.3.579.2.593 1944 Unknown [id number] 2.16.840.1.062784.3.579.2.593 1944 Unknown [id number] 2.16.840.1.747970.3.579.2.593 1944 Unknown [id number] 2.16.840.1.221430.3.579.2.593 1944 Unknown [id number] 2.16.840.1.639689.3.579.2.593 1944 Unknown [id number] 2.16.840.1.568728.3.579.2.593 1944 Unknown [id number] 2.16.840.1.659032.3.579.2.593 1944 Unknown [id number] 2.16.840.1.804371.3.579.2.593 Medicare Medicare Outpatient [id number] 2T [id number] Unknown [id number] 2.16.840.1.662316.3.579.2.593 Unknown [id number] 2.16.840.1.138866.3.579.2.593 Unknown [id number] 2.16.840.1.302490.3.579.2.531 Social History Date Type Detail Facility Start: 03-09-2011 End: 02-26-2022 Tobacco smoking status NHIS Ex-smoker [facility] Work Phone: End: 02-15-1975 History of tobacco use Current smoker [facility] Work Phone: End: 02-15-1975 History of tobacco use Cigarette Smoker [facility] Work Phone: Start: 04-08-2021 End: 02-26-2022 Alcohol intake Current drinker of alcohol (finding) [facility] Start: 1945 Sex Assigned At Not on file [facility] Start: 03-09-2011 End: 03-02-2022 Cigarettes smoked current (pack per day) - Reported 1 [facility] Work Phone: Start: 03-09-2011 End: 02-26-2022 Tobacco use and exposure Smokeless tobacco non-user [facility] Start: 09-25-2021 History SDOH Financial 5 [facility] Start: 09-25-2021 History SDOH Food Worry 1 [facility] Start: 09-25-2021 History SDOH Transpo rt Med 2 [facility] Start: 09-14-2021 End: 01-12-2022 Exposure to SARS-CoV-2 (event) Not sure [facility] Start: 02-26-2022 End: 03-02-2022 Sex Assigned At [facility] Work Phone: Start: 1945 Sex Assigned At Male F [facility] How hard is it for y ou to pay for the very basics like food, housing, medical care, and heating Not hard at all [facility] Work Phone: (I/We) worried whebrenden er (my/our) food would run out before (I/we) got money to buy more. Never true [facility] Work Phone: In the past 12 month s, was there a time when you were not able to pay the mortgage or rent on time? No [facility] Work Phone: Medical Equipment Procedure Code Equipment Code Equipment Original Text Equipment Identifier Dates Tray Powerline S urecuff 5fr Polyurethane Catheter 1 Lumen Microintroducer - [id number] Start: 12-06-2021 Clinical Notes 06-05-2021 to [...] are maintaining regular scheduled appts with their jewelry repairer. No bleeding complications Dec, Hyperlipidemia LDL goal [...] fluid balance and to avoid dehydration. Dec, [facility] (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 of insulin (ICD-10 - Z79.4) [employer] Other 10-26-2023 Evaluation note* Encounter Date Diagnosis Assessment Notes Treatment Notes Treatment Clinical Notes Nov, Longstanding persistent atrial fibrillation (ICD-10 - I48.11) This patient is in NSR or rate controlled. This patient is anticoagulated to prevent thromboembolic events. They are maintaining regular scheduled appts with their jewelry repairer. 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 No bleeding complications Oct, Type 1 diabetes [...] - Z94.0) Continue routine surveillance labs. 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 DX Code Needed. 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 No bleeding complications Sep, Type 1 diabetes [...] risk for cerebrovascular and cardiovascular disease. 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 Please review and advise. Ariadna Mcdowell, documented in this encounterOur [facility] note* Encounter Date Diagnosis Assessment Notes Treatment Notes Treatment Clinical Notes Aug, Longstanding persistent atrial fibrillation (ICD-10 - I48.11) This patient is in NSR or rate controlled. This patient is anticoagulated to prevent thromboembolic events. They are maintaining regular scheduled appts with their jewelry repairer. No s/s bleeding Aug, Type 1 diabetes [...] risk for cerebrovascular and cardiovascular disease. 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 Lightheaded in the office today, as BP is very low. He denies chest pain, SOB, palpitations, and bleeding on warfarin. Had routine labs last week. Review of Systems Musculoskeletal: Positive for arthritis, joint pain and myalgias. Neurological: Positive for light-headedness. All other systems reviewed and are negative.[facility] 09-09-2022 NoteUT Electrophysiology Consult Note Reason [...] at about 50-60 systolic. patient with friend/ driver service technician from facility, we will take patient to [...] of the right coronary artery with robust [id number] collaterals. 5. Normal global left ventricular systolic [...] Follow up with Dr. Galvez in [facility] in the next 2 weeks; he may follow up with Dr. Orosco as needed for interventional issues. 5. Follow up with Dr. Devon Moreira as scheduled. PMH: Past Medical History: Diagnosis Date Abnormal ECG Arrhythmia Atrial fibrillation (CMS/HCC) Chronic kidney disease Coronary artery disease Diabetes mellitus (CMS/HCC) (more content not included)...[facility]06-22-2023 Evaluation note* Encounter Date Diagnosis Assessment [...] are maintaining regular scheduled appts with their jewelry repairer. No bleeding complications Jul, Type 1 diabetes [...] risk for cerebrovascular and cardiovascular disease. 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 - Z79.4) Jul, Kidney transplant status (ICD-10 - Z94.0) Monthly labs, ongoing surveillance from transplant clinic [place] [employer] Other 05-15-2023 Progress note Author Sadia Aguilar [facility] June 29, 2022 2:47pm Note Date/Time June 29, 2022 2:46p m [facility] [address] [place] [address] Wound Center Provider Note Signed Patient: Alex Almonte MR#: [id number] : 1945 Acct:[id number] Age/Sex: 76 / M Copies to: DO Sadia Whyte APRN~ HPI Date of Visit Date of Visit: Date of Service: 06/29/2022 Time of Service: 14:45 Narrative HPI: 12/30/21 Alex is a 76 year old male presenting to [facility] wound care for aninitial visit for eval and treatment of a sacral/coccyx area pressure ulcer. He resides at [facility]. There is an OUTSEWER present for the visit. Medicalhoney gel will [...] his brief that was cleaned by this underwriter mortgage loan as well as another nursing staff member, [...] from initial visit here Mode of Arrival/ Guide Setter: Facility vehicle Assistive Device Used Today: Wheelchair and Indra Lives with:: Care/Nursing Facility Appetite Description: Within Normal Limits Who helps w/ dressing change?: Nursing Facility Why Do You Need Help?: Can't Reach Ulcer, Limited mobility and Taxing effort to leave home Smoking Status: Former smoker [facility] Medical History (Updated 03/03/22 @ 14:41 [...] Ulcer/Injury Staging: Unstageable Bed Appearance: Beefy Red, Orchid, Yellow and Rolled Edges Percent of Wound [...] By: <Electronically signed by DAVID Aguilar> 06/29/22[address] [facility] Work Phone: 1(675) 223-352805-11-2023 Evaluation note* Encounter Date Diagnosis Assessment Notes [...] are maintaining regular scheduled appts with their jewelry repairer. No bleeding complications June, Hyperlipidemia LDL goal <100 (ICD-10 - E78.5) Instructed on diet and exercise with continued statin therapy.Discussed the beneficial effects of lowering cholesterol in reducing the risk for cerebrovascular and cardiovascular disease. 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) June, Kidney transplant status (ICD-10 - Z94.0) No s/s rejection [employer] Other 04-24-2023 Progress note Author Sadia Aguilar [facility] June 08, 2022 2:10pm Note Date/Time June 08, 2022 2:1 0pm [facility] [address] [place] [address] Wound Center Provider Note Signed Patient: Alex Almonte MR#: [id number] : 1945 Acct:[id number] Age/Sex: 76 / M Copies to: Devon Moreira,DO Sadia Aguilar APRN~ HPI Date of Visit Date of Visit: Date of Service: 06/08/2022 Time of Service: 14:07 Narrative HPI: 12/30/21 Alex is a 76 year old male presenting to [facility] wound care for aninitial visit for eval and treatment of a sacral/coccyx area pressure ulcer. He resides at [facility]. There is an OUTSEWER present for the visit. Medicalhoney gel will [...] his brief that was cleaned by this underwriter mortgage loan as well as another nursing staff member, [...] from initial visit here Mode of Arrival/ Guide Setter: Facility vehicle Assistive Device Used Today: Wheelchair and Indra Lives with:: Care/Nursing Facility Appetite Description: Within Normal Limits Who helps w/ dressing change?: Nursing Facility Why Do You Need Help?: Can't Reach Ulcer, Limited mobility and Taxing effort to leave home Smoking Status: Former smoker [facility] Medical History (Updated 03/03/22 @ 14:41 [...] Ulcer/Injury Staging: Unstageable Bed Appearance: Beefy Red, Orchid, Yellow and Rolled Edges Percent of Wound [...] <Electronically signed by DAVID Aguilar> 06/08/[address] [facility] Work Phone: 1(384) 543-898104-21-2023 Evaluation note* Encounter Date Diagnosis Assessment Notes [...] are maintaining regular scheduled appts with their jewelry repairer. May, [facility] (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 of insulin (ICD-10 - Z79.4) May, Kidney transplant status (ICD-10 - Z94.0) routine labs per clinic. 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 No open ulcerations present Pain controlled [employer] Other 03-27-2023 Progress note Author Sadia Aguilar [facility] May 11, 2022 1:41pm Note Date/Time May 11, 2022 1:4 0pm [facility] [address] [place] [address] Wound Center Provider Note Signed Patient: Alex Almonte MR#: [id number] : 1945 Acct:[id number] Age/Sex: 76 / M Copies to: Devon Moreira,DO Sadia Aguilar, MEDICAL STAFF SPECIALIST~ HPI Date of Visit Date of Visit: Date of Service: 05/11/2022 Time of Service: 13:38 Narrative HPI: 12/30/21 Alex is a 76 year old male presenting to [facility] wound care for aninitial visit for eval and treatment of a sacral/coccyx area pressure ulcer. He resides at [facility]. There is an OUTSEWER present for the visit. Medicalhoney gel will [...] his brief that was cleaned by this underwriter mortgage loan as well as another nursing staff member, [...] from initial visit here Mode of Arrival/ Guide Setter: Facility vehicle Assistive Device Used Today: Wheelchair and Indra Lives with:: Care/Nursing Facility Appetite Description: Within Normal Limits Who helps w/ dressing change?: Nursing Facility Why Do You Need Help?: Can't Reach Ulcer, Limited mobility and Taxing effort to leave home Smoking Status: Former smoker [facility] Medical History (Updated 03/03/22 @ 14:41 [...] Ulcer/Injury Staging: Unstageable Bed Appearance: Beefy Red, Orchid and Yellow Percent of Wound Bed Granulated/Red: [...] <Electronically signed by DAVID Aguilar> 05/11/22 134[address] [facility] Work Phone: 1([phone]) 307-108703-23-2023 Evaluation note* Encounter Date Diagnosis Assessment Notes [...] are maintaining regular scheduled appts with their jewelry repairer. 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 Author Type: Physician Type: Progress Notes Filed: 04/24/2022 10:32 AM Note Text: Encounter opened in error, patient not seen.[facility]02-28-2023 Progress note Author Sadia Aguilar [facility] April 14, 2022 2:19pm Note Date/Time April 14, 2022 2:18pm [facility] [address] [place] [address] Wound Center Provider Note Signed Patient: Alex Almonte MR#: [id number] : 1945 Acct:[id number] Age/Sex: 76 / M Copies to: DO Sadia Whyte APRN~ HPI Date of Visit Date of Visit: Date of Service: 04/14/2022 Time of Service: 14:18 Narrative HPI: 12/30/21 Alex is a 76 year old male presenting to [facility] wound care for aninitial visit for eval and treatment of a sacral/coccyx area pressure ulcer. He resides at [facility]. There is an OUTSEWER present for the visit. Medicalhoney gel will [...] his brief that was cleaned by this underwriter mortgage loan as well as another nursing staff member, [...] from initial visit here Mode of Arrival/ Guide Setter: Facility vehicle Assistive Device Used Today: Wheelchair and Indra Lives with:: Care/Nursing Facility Appetite Description: Within Normal Limits Who helps w/ dressing change?: Nursing Facility Why Do You Need Help?: Can't Reach Ulcer, Limited mobility and Taxing effort to leave home Smoking Status: Former smoker [facility] Medical History (Updated 03/03/22 @ 14:41 [...] Ulcer/Injury Staging: Unstageable Bed Appearance: Beefy Red, Orchid and Yellow Percent of Wound Bed Granulated/Red: [...] <Electronically signed by DAVID Aguilar> 04/14/22 14[address] [facility] Work Phone: 1(702) 414-525102-16-2023 NotePatient Outreach (DAVISMMN) ALEX ALMONTE ([id number]) 1945 M TRN Date Time Provider Department 04/02/22 VAN OLIVAREZ During your visit today, we recorded the following information about you: Allergies As of Date: 04/02/2022 Noted Allergy Reaction PYRIDOSTIGMINE BROMIDE 08/04/2021 8 - GI Upset Date Reviewed: 02/26/2022 Reviewed by: Braden Abel MA - Fully Assessed Visit Diagnosis:Screening for genitourinary condition [Z13.89] Order(s):URINALYSIS, REFLEX MICROSCOPIC [[id number]] Order #: [id number] Prescriptions as of 04/06/2022 - tacrolimus IR [...] by mouth daily with lunch. 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 DIABETES UNCOMPL ADULT-UNCONTRLLED [[id number]] 02/24/2002 KIDNEY TRANSPLANT STATUS [Z94.0] 09/07/2003 PROPHYLACTIC IMMUNOTHERAPY [Z29.8] 07/30/2006 RESIDENTIAL STEROIDS [[id number]] 07/30/2006 VITAMIN D DEFICIENCY NOS [E55.9] 09/07/2008 MIXED HYPERLIPIDEMIA [E78.2] 09/07/2008 SUMMARY 01/04/2015 ILIANA (acute kidney injury) (HCC) [N17.9] 01/04/2015 Diabetes mellitus (HCC) [E11.9] 01/04/2015 Cellulitis [L03.90] 01/04/2015 Diarrhea [R19.7] 01/04/2015 VTE (venous thromboembolism) [I82.90] 09/24/2021 CAD (coronary artery disease) [I25.10] 2016 Paroxysmal atrial fibrillation (HCC) [I48.0] HTN (hypertension) [I10] SA node dysfunction ([facility]) [I49.5] Altered tissue perfusion [R09.89] 09/30/2021 PAD (peripheral artery disease) (HCC) [I73.9] 09/26/2021 Osteomyelitis (HCC) [M86.9] 11/29/2021 Class 1 obesity due to excess calories with ser*11/29/2021 Mixed hyperlipidemia due to type 2 diabetes myles*11/29/2021 Type 2 diabetes mellitus with diabetic peripher*11/29/2021 Atherosclerosis of unga artery of extremity w*11/29/2021 Malnutrition of moderate degree (HCC) [E44.0] 12/01/2021 Dermatitis associated with moisture [L30.8] 12/04/2021 Encounter Status:Closed by Gema Touch, zandaUSER on 04/06/22[facility] 03-30-2022 Miscellaneous Notes* Telephone Encounter - Van Olivarez APRN.BINITROTOLUENE OPERATOR - 03/30/2022 12:16 PM EST The following [...] to pharmacy. Katina Duque documented in this encounterOur [facility] Progress note Author Sadia Aguilar [facility] March 24, 2022 3:00pm Note Date/Time March 24, 2022 2 :59pm [facility] [address] [place] [address] Wound Center Provider Note Signed Patient: Alex Almonte MR#: [id number] : 1945 Acct:[id number] Age/Sex: 76 / M Copies to: DO Sadia Whyte APRN~ HPI Date of Visit Date of Visit: Date of Service: 03/24/2022 Time of Service: 14:58 Narrative HPI: 12/30/21 Alex is a 76 year old male presenting to [facility] wound care for aninitial visit for eval and treatment of a sacral/coccyx area pressure ulcer. He resides at [facility]. There is an OUTSEWER present for the visit. Medicalhoney gel will [...] his brief that was cleaned by this underwriter mortgage loan as well as another nursing staff member, [...] from initial visit here Mode of Arrival/ Guide Setter: Facility vehicle Assistive Device Used Today: Wheelchair and Indra Lives with:: Care/Nursing Facility Appetite Description: Within Normal Limits Who helps w/ dressing change?: Nursing Facility Why Do You Need Help?: Can't Reach Ulcer, Limited mobility and Taxing effort to leave home Smoking Status: Former smoker [facility] Medical History (Updated 03/03/22 @ 14:41 [...] Ulcer/Injury Staging: Unstageable Bed Appearance: Beefy Red, Orchid and Yellow Percent of Wound Bed Granulated/Red: [...] <Electronically signed by DAVID Aguilar> 03/24/[address] [facility] Work Phone: 1(412) 184-498401-17-2023 Progress note Author Sadia Aguilar [facility] March 03, 2022 2:41pm Note Date/Time March 03, 2022 2 :41pm [facility] [address] [place] [address] Wound Center Provider Note Signed Patient: Alex Almonte MR#: [id number] : 1945 Acct:[id number] Age/Sex: 76 / M Copies to: DO Sadia Whyte APRN~ HPI Date of Visit Date of Visit: Date of Service: 03/03/2022 Time of Service: 14:38 Narrative HPI: 12/30/21 Alex is a 76 year old male presenting to [facility] wound care for aninitial visit for eval and treatment of a sacral/coccyx area pressure ulcer. He resides at [facility]. There is an OUTSEWER present for the visit. Medicalhoney gel will [...] his brief that was cleaned by this underwriter mortgage loan as well as another nursing staff member, [...] from initial visit here Mode of Arrival/ Guide Setter: Facility vehicle Assistive Device Used Today: Wheelchair and Indra Lives with:: Care/Nursing Facility Appetite Description: Within Normal Limits Who helps w/ dressing change?: Nursing Facility Why Do You Need Help?: Can't Reach Ulcer, Limited mobility and Taxing effort to leave home Smoking Status: Former smoker [facility] Medical History (Updated 03/03/22 @ 14:41 [...] Ulcer Pressure Ulcer/Injury Staging: Unstageable Bed Appearance: Orchid and Yellow Percent of Wound Bed Granulated/Red: 90 Percent of Devitalized: 10 Length (cm): 2.2 Width (cm): 1.8 Depth (cm): 1.9 CM Sq: 3.960 Surrounding Tissue Appearance: Orchid, Hyperpigmented and Satellite lesions Surrounding Tissue Temp: [...] <Electronically signed by DAVID Aguilar> 03/03/[address] [facility] Work Phone: 1(859) 766-557901-13-2023 Miscellaneous Notes* Telephone Encounter - RAUL Davidson - 02/27/2022 10:24 AM EST Patient phones requesting refills as follows: Per pts sister takes 1 mg in AM and 1 mg in PM Requested Prescriptions Pending Prescriptions Disp Refills tacrolimus IR (PROGRAF) 1 mg capsule Sig: Take 2 capsules by mouth DAILY (6 AM). Please review and advise. RAUL Davidson documented in this encounterOur Lady Of [facility]cy [facility]01-12-2023 NoteHNO ID: [id number] Author: Hina Peterson MD Service: ? Author Type: Physician Type: Progress Notes Filed: 02/26/2022 4:31 PM Note Text: [facility] [place] DEPARTMENT OF VASCULAR SURGERY OUTPATIENT VISIT DATE [...] his postop visit. He has been in care home since then and has been recovering from his acute on chronic congestive heart failure. His wound has largely been healing without any issues and the maxwell and sutures were removed at the nursing facility. He comes here with a lateral wound eschar. He denies any fevers, chills, or any drainage. He is on anticoagulation. 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 Magic Cup [place] with lunch aspirin, enteric coated (ASPIRIN, ENTERIC COATED) 81 mg EC tablet Take 1 tablet by mouth once daily. predniSONE (DELTASONE) 5 mg tablet TAKE 1 TABLET BY MOUTH EVERY DAY oxyCODONE IR (ROXICODONE) 5 mg immediate release tablet 1-2 tablets by ORAL/FEEDING TUBE route every 3 hours as needed. Food Supplement, Lactose-Free (ENSURE MAX (more content not included)... [facility] History of Present illness Narrative* Hina Peterson MD - 02/26/2022 4:25 PM EST Images from the original note were not included. [facility] [place] DEPARTMENT OF VASCULAR SURGERY OUTPATIENT VISIT DATE [...] his postop visit. He has been in care home since then and has been recovering from his acute on chronic congestive heart failure. His wound has largely been healing without any issues and the maxwell and sutures were removed at the [facility] facility. He comes here with a lateral wound eschar. He denies any fevers, chills, or any drainage. He is on anticoagulation. 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 Patient on mycophenolate mofetil ,cellcept and prednisone Mixed hyperlipidemia due to type 2 diabetes mellitus ([facility]) 11/29/2021 Osteomyelitis ([facility]) 11/29/2021 Paroxysmal atrial fibrillation ([facility]) Renal transplant, status post SA node dysfunction ([facility]) s/p pacemaker Type 2 diabetes mellitus with diabetic neuropathy, with long-term current use of insulin ([facility]) 02/24/2002 PAST SURGICAL HISTORY Procedure [...] by mouth daily with lunch. Magic Cup [place] with lunch aspirin, enteric coated (ASPIRIN, ENTERIC [...] 2022 TIME: 4:26 PM documented in this encounterOur Lady Of [facility]01-05-2023 Miscellaneous Notes* Telephone Encounter - Gwen Beard [...] Home and cell number(Ask for Alex's nurse) [phone] Diagnosis 4 mo f/u wound check Yumiko Mcclain documented in this encounterOur Lady Of Mercy [facility]01-05-2023 Miscellaneous Notes* Telephone Encounter - Augusta Medrano RN - 02/19/2022 11:11 AM EST Alex Almonte's nursing facility, [facility], called regarding elevated tacrolimus level (23.9). Spoke with bedside nurse, Zoe, today. Level is from last week- unable to clearly determine if medications were held prior to lab work. Reviewed with nurse morning labs should occur prior to lab draws. Patient is scheduled for repeat labs tomorrow. Will assess new level. Augusta Medrano RN documented in this encounterOur Lady Of [facility]01-04-2023 Miscellaneous Notes* Telephone Encounter - Martina Rossi [...] advise. Mercedez Tavares MA documented in this encounterOur Lady Of Mercy [facility]12-27-2022 Progress note Author Sadia Aguilar [facility] February 10, 2022 3:47pm Note Date/Time February 10, 2022 3:47pm [facility] [address] [place] [address] Wound Center Provider Note Signed Patient: Alex Almonte MR#: [id number] : 1945 Acct:[id number] Age/Sex: 76 / M Copies to: DO Sadia Whyte APRN~ HPI Date of Visit Date of Visit: Date of Service: 02/10/2022 Time of Service: 15:44 Narrative HPI: 12/30/21 Alex is a 76 year old male presenting to [facility] wound care for aninitial visit for eval and treatment of a sacral/coccyx area pressure ulcer. He resides at [facility]. There is an OUTSEWER present for the visit. Medicalhoney gel will [...] his brief that was cleaned by this underwriter mortgage loan as well as another nursing staff member, few weeks to follow up Subjective Pain Coccyx: Pain Description: Intermittent Pain Intensity: 0 Wound/Ulcer History When did wound start?: 4 weeks ago- from initial visit here Mode of Arrival/ Guide Setter: Facility vehicle Assistive Device Used Today: Wheelchair and Indra Lives with:: Care/Nursing Facility Appetite Description: Within Normal Limits Who helps w/ dressing change?: Nursing Facility Why Do You Need Help?: Can't Reach Ulcer, Limited mobility and Taxing effort to leave home Smoking Status: Former smoker [facility] Medical History (Updated 01/20/22 @ 14:21 [...] Ulcer Pressure Ulcer/Injury Staging: Unstageable Bed Appearance: Orchid and Yellow Percent of Wound Bed Granulated/Red: 90 Percent of Devitalized: 10 Length (cm): 2.5 Width (cm): 2.3 Depth (cm): 2.1 CM Sq: 5.750 Surrounding Tissue Appearance: Orchid, Hyperpigmented and Satellite lesions Surrounding Tissue Temp: [...] <Electronically signed by DAVID Aguilar> 02/10/[address] [facility] Work Phone: 1(234) 590-148812-22-2022 NoteHNO ID: [id number] Author: Asia Pike MD Service: ? Author Type: Physician Type: Progress Notes Filed: 02/05/2022 9:38 AM Note Text: [facility] [place] Transplant Follow up Portions of this note [...] and snacks patient declined. Indra scale at : 166.2 lbs per patient. Bed sore on coccyx causing discomfort. Being changed regularly at SNF- reported to be smaller around but still as deep. Patient not very up to date with medications. Patient brought paperwork from [facility] with all medications being received. Patient unsure if they have been drawing labs regularly. Last Tac from 01/19: 12.9 and K 5.9. In need of current labs. Lab orders will be sent with patient and follows as below: Kidney and Pancreas Transplant Standing Lab Orders [id number] [place], [place] [address] February 05, 2022 [place] 1945 [id number] STANDARD TESTING: Diagnosis Codes: Z94.0 Kidney Transplant [...] AT YOUR LABORATORY FACILITY AND FAX TO [phone]. PLEASE CALL [phone]. Provider: Dr. Pike Current Outpatient Medications Medication [...] by mouth daily with lunch. Magic Cup [place] with lunch aspirin, enteric coated (ASPIRIN, ENTERIC COATED) 81 mg EC tablet Take 1 tablet by mouth once daily. atorvastatin (LIPITOR) 40 mg tablet 1 tablet by ORAL/FEEDING TUBE route daily at bedtime. (more content not included)...[facility] History of Present illness Narrative* Asia Pike MD - 02/05/2022 8:20 AM EST Images from the original note were not included. [facility] [place] Trans[facility] Follow up Portions of this note [...] and snacks patient declined. Indra scale at : 166.2 lbs per patient. Bed sore on coccyx causing discomfort. Being changed regularly at SNF- reported to be smaller around but still as deep. Patient not very up to date with medications. Patient brought paperwork from [facility] with all medications being received. Patient unsure if they have been drawing labs regularly. Last Tac from 01/19: 12.9 and K 5.9. In need of current labs. Lab orders will be sent with patient and follows as below: Kidney and Pancreas Transplant Standing Lab Orders [address] [facility] [address] [place], [place] [address] February 05, 2022 Alex Kate Almonte 1945 [id number] STANDARD TESTING: Diagnosis Codes: Z94.0 Kidney Transplant [...] AT YOUR LABORATORY FACILITY AND FAX TO [phone]. PLEASE CALL [phone]. Provider: Dr. Pike Current Outpatient Medications Medication [...] by mouth daily with lunch. Magic Cup [place] with lunch aspirin, enteric coated (ASPIRIN, ENTERIC [...] complexity. Asia Pike MD documented in this encounterOur Lady Of [facility]12-06-2022 Progress note Author Sadia Aguilar [facility] January 20, 2022 2:21pm Note Date/Time January 20, 2022 2 :21pm [facility] [address] [place] [address] Wound Center Provider Note Signed Patient: Alex Almonte MR#: [id number] : 1945 Acct:[id number] Age/Sex: 76 / M Copies to: DO Sadia Whyte APRN~ HPI Date of Visit Date of Visit: Date of Service: 01/20/2022 Time of Service: 14:17 Narrative HPI: 12/30/21 Alex is a 76 year old male presenting to [facility] wound care for aninitial visit for eval and treatment of a sacral/coccyx area pressure ulcer. He resides at [facility]. There is an OUTSEWER present for the visit. Medicalhoney gel will [...] from initial visit here Mode of Arrival/ Guide Setter: Facility vehicle Assistive Device Used Today: Wheelchair and Indra Lives with:: Care/Nursing Facility Appetite Description: Within Normal Limits Who helps w/ dressing change?: Nursing Facility Why Do You Need Help?: Can't Reach Ulcer, Limited mobility and Taxing effort to leave home Smoking Status: Former smoker [facility] Medical History (Updated 01/20/22 @ 14:21 [...] Ulcer Pressure Ulcer/Injury Staging: Unstageable Bed Appearance: Orchid and Yellow Percent of Wound Bed Granulated/Red: 40 Percent of Devitalized: 60 Length (cm): 5.2 Width (cm): 3.4 Depth (cm): 1.8 CM Sq: 17.680 Surrounding Tissue Appearance: Orchid and Hyperpigmented Surrounding Tissue Temp: Warm Drainage [...] <Electronically signed by DAVID Aguilar> 01/20/22 14[address] [facility] Work Phone: [phone]) 239-302912-06-2022 Miscellaneous Notes* Telephone Encounter - Van Olivarez APRN.CNP - 01/20/2022 1:12 PM EST Labs noted from yesterday. Pt is currently residing at [facility], I spoke with the Nurse, the results has been addressed by Physician caring for pt. He had been placed on Chlor Con and this has been discontinued and hyperkalemia has been treated. Van Olivarez APRN.CNP documented in this encounterOur Lady Of Mercy [facility]11-28-2022 Surgical operation note* Brief Op Note - Misbah Landis PA-C - 01/12/2022 10:41 AM EST BRIEF OPERATIVE / PROCEDURE NOTE LOG ID: [id number] SURGERY/PROCEDURE DATE: 01/12/2022 INCISION/PROCEDURE START TIME: 10:32 AM INCISION CLOSE/PROCEDURE END TIME: 10:35 AM SURGEON(S)/PROCEDURALIST(S) AND ORACLE PL SQL DEVELOPER(S): Misbah Landis PA-C SURGERY/PROCEDURE(S): Removal tunneled vascular access catheter under local anesthesia ANESTHESIA: Procedural Sedation FINDINGS: Catheter removed intact ESTIMATED BLOOD LOSS: 0 ml SPECIMENS: None COMPLICATIONS: None PRE-OP/PRE-PROCEDURE DIAGNOSIS: Foot Ulcer POST-OP/POST-PROCEDURE DIAGNOSIS: Same as Preop SIGNATURE: Misbah Landis PA-C PATIENT NAME: Alex Almonte DATE: January 12, 2022 TIME: 10:42 AM documented in this encounterOur Lady Of Mercy Hospital - [facility]11-22-2022 Nurse Note* Laxmi Archibald RN - 01/06/2022 1:55 PM EST Pre-procedure instructions: Contacted patient's sister, Munira Brothers and nurse at [facility], Jada ([phone]) andconfirmed appt. for Gerhard removal scheduled on 01/12/22, at [facility]. If instructions are not followed your [...] signed. Arrival at 9:30am [facility] and check in for your procedure. Forensic Dna Analyst/Transportation: How will you be arriving for your procedure? Ambulance service. To be arranged by [facility]. If you develop any of the following symptoms before your procedure, please call [phone]. Chills, joint pain, rash, sore throat, cough, loss of smell, reddened eyes, vomiting, abdominal pains, diarrhea, loss of taste, severe headache, weakness, bruising or bleeding, fever, muscle pain, shortness of breath Recovery expectations: You can expect to be in recovery for 30 minutes following the procedure. Written instructions provided to patient via Net[employer]st If you have any questions please call [phone] documented in this encounterOur Lady Of Mercy [facility]11-15-2022 Progress note Author Sadia Aguilar [facility] December 30, 2021 1:49pm Note Date/Time December 30, 2021 1:49pm [facility] [address] [place] [address] Wound Center Provider Note Signed Patient: Alex Almonte MR#: [id number] : 1945 Acct:[id number] Age/Sex: 76 / M Copies to: DO Sadia Whyte APRN~ HPI Date of Visit Date of Visit: Date of Service: 12/30/2021 Time of Service: 13:44 Narrative HPI: 12/30/21 Alex is a 76 year old male presenting to [facility] wound care for aninitial visit for eval and treatment of a sacral/coccyx area pressure ulcer. He resides at [facility]. There is an OUTSEWER present for the visit. Medicalhoney gel will [...] start?: 4 weeks ago Mode of Arrival/ Guide Setter: Facility vehicle Assistive Device Used Today: Wheelchair and Indra Lives with:: Care/Nursing Facility Appetite Description: Within Normal Limits Who helps w/ dressing change?: Nursing Facility Why Do You Need Help?: Can't Reach Ulcer, Limited mobility and Taxing effort to leave home Smoking Status: Former smoker [facility] Medical History (Updated 12/30/21 @ 13:49 [...] 0.1 CM Sq: 38.500 Surrounding Tissue Appearance: Orchid and Hyperpigmented Surrounding Tissue Temp: Warm Drainage [...] By: <Electronically signed by DAVID Aguilar> 12/30/21 [address] [facility] Work Phone: 1(122) 469-990311-15-2022 History of Present illness Narrative* Paresh Fonseca [...] the rehab facility He is currently at in [facility] Seen on video together with Zoe -history obtained from bedside nursing. he is getting up in a chair, working with PT diet is back to regular hes doing well. 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 has scabs on the R lateral side but no wound care concerns. It continues to heal. He has a follow-up with vascular surgery later December 2021. has a sacral wound -- he has local wound care following this at WBC 6.0, creatinine -- 0.8. alt 12 [...] by mouth daily with lunch. Magic Cup [place] with lunch aspirin, enteric coated (ASPIRIN, ENTERIC [...] is a 76 year old male from [facility]. 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 History of PAD CAD status post CABG, diabetes, atrial fibrillatioN He originally presented [facility] for having altered mental status [...] 3. Status post right heel I&D at [facility] on 11/24/2021. 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 4. CKD - s/p gerhard placement 5. immunocompromised Status post right open above the ankle [id number]/17 - Enterobacter and MRSA from cultures Gram-positive [...] will need to coordinate with his SNF [phone] --our ID office will need to arrange for IR gerhard removal. Return to ID as needed 10 Minutes spent via virtual visit. SIGNATURE: Paresh Fonseca MD PATIENT NAME: Alex Almonte DATE: December 30, 2021 TIME: 9:52 AM documented in this encounterOur Lady Of Mercy [facility]11-01-2022 Miscellaneous Notes* Telephone Encounter - Sulma Pardo - 12/16/2021 3:13 PM EDT Pt rehabilitation therapy aide is requesting orders for Stomp ampushield to be taken off pressure relief because it is causing sores on the thigh. Thanks, Sulma Pardo Dust Brush Assembler documented in this encounterOur Lady Of Mercy Hospital [facility]10-31-2022 Miscellaneous Notes* Telephone Encounter - Gwen Alfredo Adm Asst I - 12/15/2021 4:11 PM EDT Rupa LYLES from [facility] [phone] called to report IV Vancomycin was started until today. Patient missed 3 days, should patient makeup missed doses? Please advise. Gwen Alfredo Adm Asst I documented in this encounterOur Lady Of Mercy Hospital [facility]10-21-2022 Instructions* Patient Instructions* Paresh Fonseca MD - [...] serious illness Are taking any medications (prescription, mgsq-oct-zxtryac, vitamins, or herbal products) How will I receive EVUSHELD? EVUSHELD consists of two investigational medicines, tixagevimab and cilgavimab. You will receive 1 dose of EVUSHELD, consisting of 2 separate injections (tixagevimab and cilgavimab). EVUSHELD will be given to you by your healthcare provider as 2 intramuscular injections, given one after the other. Viruses can blade changer time (mutate) and develop into a [...] caused by certain SARS-CoV-2 variants: Viruses can blade changer time (mutate) and develop into a [...] treatment or prevention of COVID-19 go to https://www.fda.gov/huoripmlv-vquslzkgikzj-sjt- response/enk-ydcso-xvydwxlgzv-ppi-iwwjrb-yiadjpxex/ipacluudg-wgi-xbvmoaqnhgqtu for more information. It is your choice [...] to FDA MedWatch at www.fda.gov/medwatch or call 3-042-DOL-2071 or call [employer] . Additional Information If you have questions, visit the website or call the telephone number provided below. Website Telephone number http://www.Benefex GroupusheldAbcam How can I learn more about COVID-19? Ask your healthcare provider. Visit https://www.cdc.gov/COVID19 Contact your local or state public health department. What is an Emergency Use Authorization? The [place] FDA has made EVUSHELD (tixagevimab co-packaged with cilgavimab) available under an emergency access mechanism called an Emergency Use Authorization EUA. The EUA is supported by a Restorative Rehab Aide of Health and Human Service ([facility]) declaration that circumstances exist to justify the [...] monohydrate, polysorbate 80, sucrose, water. Distributed by: [employer], [place], [place] Manufactured for: [employer], [place], [place] [employer] 2021. All rightsreserved. documented in this encounterOur Lady Of Mercy Hospital [facility]10-21-2022 Miscellaneous Notes* Telephone Encounter - Paresh Fonseca MD - 12/05/2021 3:05 PM EDT Evusheld (tixagevimab/cilgavimab) Eligibility and Patient Discussion The patient agrees to receive Evusheld (tixagevimab 300 mg and cilgavimab 300 mg) at [place]. The patient verbalized understanding of repeating a COVID test 72 hours prior to the injections. called up patient in response to her [employer] message today she tested covid negative on a rapid test on Wednesday this week Discussed evushed fact sheet and she agrees to proceed she will retest again today to be scheduled for Friday 12/08 at [facility] Paresh Fonseca MD documented in this encounterOur Lady Of Mercy [facility]10-03-2022 Instructions* Patient Instructions* No Reeder DO - 11/17/2021 4:26 PM EDT -- continue coumadin -- will get vascular ultrasound for vein and artery of your right leg -- will have you see my interventional cardiology partner regarding your peripheral artery disease and if your artery disease is impairing your wound healing for the leg ulcer documented in this encounterOur Lady Of Mercy Hospital [facility]10-03-2022 History of Present illness Narrative* No Reeder DO - 11/17/2021 3:53 PM EDT Images from the original note were not included. [facility] Department of Cardiovascular Medicine SECTION [...] On coumadin. F/up DVT scan. Leg elevation. oN Reeder DO, [facility] Vascular Medicine documented in this encounter[address]16-2022 History of Past illness Narrative* Problem Noted Date Resolved Date Altered tissue perfusion 2 022 documented as of this encounter (statuses as of 09/30/2021) [address]16-2022 History of Past illness Narrative* Problem Noted Date Resolved Date Altered tissue perfusion 2 022 documented as of this encounter (statuses as of 10/09/2021) [address]16-2022 History of Past illness Narrative* Problem Noted Date Resolved Date Altered tissue perfusion 2 022 documented as of this encounter (statuses as of 11/18/2021) [address]16-2022 History of Past illness Narrative* Problem Noted Date Resolved Date Altered tissue perfusion 2 022 documented as of this encounter (statuses as of 12/01/2021) [address]16-2022 History of Past illness Narrative* Problem Noted Date Resolved Date Altered tissue perfusion 16/2 022 documented as of this encounter (statuses as of 12/05/2021) [address]16-2022 History of Past illness Narrative* Problem Noted Date Resolved Date Altered tissue perfusion 16/2 022 documented as of this encounter (statuses as of 12/08/2021) [address]16-2022 History of Past illness Narrative* Problem Noted Date Resolved Date Altered tissue perfusion 16/2 022 documented as of this encounter (statuses as of 12/08/2021) [address]16-2022 History of Past illness Narrative* Problem Noted Date Resolved Date Altered tissue perfusion 16/2 022 documented as of this encounter (statuses as of 12/12/2021) [address]16-2022 History of Past illness Narrative* Problem Noted Date Resolved Date Altered tissue perfusion 16/2 022 documented as of this encounter (statuses as of 12/15/2021) [address]16-2022 History of Past illness Narrative* Problem Noted Date Resolved Date Altered tissue perfusion 16/2 022 documented as of this encounter (statuses as of 12/16/2021) [address]16-2022 History of Past illness Narrative* Problem Noted Date Resolved Date Altered tissue perfusion 16/2 022 documented as of this encounter (statuses as of 12/31/2021) [address]16-2022 History of Past illness Narrative* Problem Noted Date Resolved Date Altered tissue perfusion 16/2 022 documented as of this encounter (statuses as of 01/13/2022) [address]16-2022 History of Past illness Narrative* Problem Noted Date Resolved Date Altered tissue perfusion 16/2 022 documented as of this encounter (statuses as of 01/20/2022) [address]16-2022 History of Past illness Narrative* Problem Noted Date Resolved Date Altered tissue perfusion 16/2 022 documented as of this encounter (statuses as of 02/06/2022) [address]16-2022 History of Past illness Narrative* Problem Noted Date Resolved Date Altered tissue perfusion 16/2 022 documented as of this encounter (statuses as of 02/20/2022) [address]16-2022 History of Past illness Narrative* Problem Noted Date Resolved Date Altered tissue perfusion 16/2 022 documented as of this encounter (statuses as of 02/26/2022) [address]16-[address]22 History of Past illness Narrative* Problem Noted Date Resolved Date Altered tissue perfusion 16/2 022 documented as of this encounter (statuses as of 02/27/2022) [address]16-[address]22 History of Past illness Narrative* Problem Noted Date Resolved Date Altered tissue perfusion 16/2 022 documented as of this encounter (statuses as of 03/21/2022) [address]16-[address]22 History of Past illness Narrative* Problem Noted Date Resolved Date Altered tissue perfusion 16/2 022 documented as of this encounter (statuses as of 03/30/2022) [address]16[address]22 History of Past illness Narrative* Problem Noted Date Resolved Date Altered tissue perfusion 16/2 022 documented as of this encounter (statuses as of 04/06/2022) [place] [address] History of Past illness Narrative* Problem Noted Date Resolved Date Altered tissue perfusion 16/2 022 documented as of this encounter (statuses as of 05/13/2022) [facility] History of Past illness Narrative* Problem Noted Date Diagnosed Date Resolved Date Altered tissue perfusion documented as of this encounter (statuses as of 2022) [facility] History of Past illness Narrative* Problem Noted Date Diagnosed Date Resolved Date Altered tissue perfusion documented as of this encounter (statuses as of 10/29/2022) [facility] Miscellaneous Notes* Telephone Encounter - Katina Duque [...] to pharmacy. Katina Duque documented in this encounterOur Lady Of Mercy Hospital [facility]05-31-2022 Miscellaneous Notes* Telephone Encounter - Van Olivarez [...] and advise. Rosibel Daniel documented in this encounterOur Lady Of Mercy Hospital [facility]04-21-2022 Miscellaneous Notes* Telephone Encounter - Van Olivarez APRN.CNP - 06/05/2021 4:46 PM EDT Spoke with pt regarding latest results, scr. at baseline. TAC level 8.6 prev two levels in 5 range.He believes latest level would be 12hr trough. No changes for now, if next level >7, can consider if reduction appropriate. He understands. Van Olivarez APRN.CNP [facility]* Diagnosis Screening for genitourinary condition Screening for other and unspecified genitourinary condition documented in this encounter [facility] note* Diagnosis Acute deep vein thrombosis (DVT) of proximal end of right lower extremity ([facility])- Primary PAD (peripheral artery disease) ([facility]) Peripheral vascular disease, unspecified Nonhealing ulcer of heel ([facility]) Anticoagulation management encounter Encounter for therapeutic drug monitoring documented in this encounter [facility] note* Diagnosis Encounter for prophylactic measures, unspecified- Primary documented in this encounter [facility] note* Diagnosis Kidney replaced by transplant- Primary documented in this encounter [facility] note* Diagnosis MRSA bacteremia- Primary Bacteremia Diabetic foot ulcer with osteomyelitis ([facility]) Type II or unspecified type diabetes mellitus with other specified manifestations, not stated as uncontrolled ILIANA (acute kidney injury) ([facility]) Acute kidney failure, unspecified documented in this encounter [facility] note* Diagnosis Kidney replaced by transplant- Primary 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 [facility] current use of immunosuppressive drug documented in this encounter [facility] note* Diagnosis Hx of BKA, right ([facility])- Primary PAD (peripheral artery disease) ([facility]) Peripheral vascular disease, unspecified Mixed hyperlipidemia due to type 2 diabetes mellitus ([facility]) Type II or unspecified type [...] (HCC) Atrial fibrillation documented in this encounter [facility] note* Diagnosis Screening for genitourinary condition Screening for other and unspecified genitourinary condition documented in this encounter [facility] note* Diagnosis Onset Date Resolution Status At high risk for skin breakdown chronic Diabetes chronic Fecal incontinence chronic Limited mobility chronic Poor appetite chronic Pressure ulcer of sacral region, unstageable chronic Candidiasis resolved [facility] Work Phone: Evaluation noteNo InformationNoCanonsburg Hospital [employer] Other Evaluation note* Diagnosis Kidney replaced by transplant- Primary documented in this encounter [facility] general Narrative - Reported* Type Description [...] COLONOSCOPY 1995,2001, 2014 Hospitalization History see above [employer] Other Progress note Author Sadia Aguilar [facility] July 20, 2022 1:48pm Note Date/Time July 20, 2022 1:48p m [facility] [address] [place] [address] Wound Center Provider Note Signed Patient: Alex Almonte MR#: [id number] : 1945 Acct:[id number] Age/Sex: 76 / M Copies to: DO Sadia Whyte APRN~ HPI Date of Visit Date of Visit: Date of Service: 07/20/2022 Time of Service: 13:46 Narrative HPI: 12/30/21 Alex is a 76 year old male presenting to [facility] wound care for aninitial visit for eval and treatment of a sacral/coccyx area pressure ulcer. He resides at [facility]. There is an OUTSEWER present for the visit. Medicalhoney gel will [...] his brief that was cleaned by this underwriter mortgage loan as well as another nursing staff member, [...] from initial visit here Mode of Arrival/ Guide Setter: Facility vehicle Assistive Device Used Today: Wheelchair and Indra Lives with:: Care/Nursing Facility Appetite Description: Within Normal Limits Who helps w/ dressing change?: Nursing Facility Why Do You Need Help?: Can't Reach Ulcer, Limited mobility and Taxing effort to leave home Smoking Status: Former smoker [facility] Medical History (Updated 03/03/22 @ 14:41 [...] <Electronically signed by DAVID Aguilar> 07/20/[address] [facility] Work Phone: Reason for referral (narrative)* Outpatient Procedure (Routine) - Authorized Specialty Diagnoses / Procedures Referred By Contac t Referred To Contact [facility] [place] Diagnoses PAD (peripheral artery disease) (HCC) Nonhealing ulcer of heel (HCC) Procedures US LEG ARTERIAL PERIPH UNL VAS LAB DUP-SCAN LXTR ART/ARTL BPGS UNI/LMTD STUDY No Reeder DO [address] [place] [address] [facility] [place] [address] Referral ID Status Reason Start Date Expiration Date Visits Requested Visits Authorized [id number] Authorized Auto-Generat ed Referral 11/17/2021 11/17/2022 1 1 * Outpatient Procedure (Routine) - Authorized Specialty Diagnoses / Procedures Referred By Contac t Referred To Contact [facility] Diagnoses Acute deep vein thrombosis (DVT) of proximal end of right lower extremity (HCC) Procedures US LEG VEIN DVT UNL VAS LAB DUP-SCAN XTR VEINS UNILATERAL/LIMITED STUDY No Reeder DO [address] [place] [address] [place] [address] Referral ID Status Reason Start Date Expiration Date Visits Requested Visits Authorized [id number] Authorized Auto-Generat ed Referral 11/17/2021 11/17/2022 1 1 * Consult, Test, Treat (Routine) - Authorized Specialty Diagnoses / Procedures Referred By Contac t Referred To Contact Cardiology Diagnoses PAD (peripheral artery disease) (HCC) Nonhealing ulcer of heel (HCC) Procedures CONSULT TO CARDIOLOGY OFFICE/OUTPATIENT [facility] 60-74 MINUTES Savanah Marcelo MD [address] [place] [address] Referral ID Status Reason Start Date Expiration Date Visits Requested Visits Authorized [id number] Authorized PCP Requested Referral 11/17/2021 11/17/2022 1 1 [facility] Summary Purpose Family History Relationship Condition Age at Onset Recorded Date/T kartik father Aneurysm Unknown father Parkinson's disease Unknown Advance Directives Documents on File Type Date Recorded Patient Encoding Machine Operator Expl anation Advance Directive(s) Latest Code Status [...] Maker Relationship: M ajority of Adult Siblings (career services representative) DNR-CCA 09/26/2021 11:56 AM 10/01/2021 2:18 [...] Decision Maker Relationship: Majority of Adult Siblings (career services representative) Code Status History Code Status Date [...] Reason for Visit Chief Complaint Open Wound ([facility]) Reason for Visit At high risk for ski n breakdown Diabetes Fecal incontinence Limited mobility Poor appetite Pressure ulcer of sacral region, unstageable Candidiasis Additional Source Comments (unrecognized sect ion and content) No Status Records FoundNo Status Records FoundNo Status Records FoundNo Status Records FoundNo Status Records Found INFORMATION SOURCE (unrecogn ized section and content) DATE CREATED AUTHOR 02/20/2021 [facility] [facility] DATE CREATED AUTHOR AUTHOR'S ORGANIZ ATION 07/25/2022 [facility] DATE CREATED AUTHOR AUTHOR'S ORGANIZ ATION 08/16/2022 [facility] DATE CREATED AUTHOR AUTHOR'S ORGANIZ ATION 09/17/2022 [facility] DATE CREATED AUTHOR AUTHOR'S ORGANIZ ATION 01/14/2023 [facility] Source Comments (unrecognize d section and content) In the event this informatio n is protected by the Federal Confidentiality of Alcohol and Drug Abuse Patient Records regulations: The Federal rules restrict any use of the information to criminally investigate or prosecute any alcohol or drug abuse patient.[facility] the event this information is protected by the Federal Confidentiality of Alcohol and Drug Abuse Patient Records regulations: The Federal rules restrict any use of the information to criminally investigate or prosecute any alcohol or drug abuse patient.[facility]In the event this information is protected by the Federal Confidentiality of Alcohol and Drug Abuse Patient Records regulations: The Federal rules restrict any use of the information to criminally investigate or prosecute any alcohol or drug abuse patient.[facility] AndersonIn the event this information is protected by the Federal Confidentiality of Alcohol and Drug Abuse Patient Records regulations: The Federal rules restrict any use of the information to criminally investigate or prosecute any alcohol or drug abuse patient.[facility] AndersonIn the event this information is protected by the Federal Confidentiality of Alcohol and Drug Abuse Patient Records regulations: The Federal rules restrict any use of the information to criminally investigate or prosecute any alcohol or drug abuse patient.[facility] AndersonIn the event this information is protected by the Federal Confidentiality of Alcohol and Drug Abuse Patient Records regulations: The Federal rules restrict any use of the information to criminally investigate or prosecute any alcohol or drug abuse patient.[facility] AndersonIn the event this information is protected by the Federal Confidentiality of Alcohol and Drug Abuse Patient Records regulations: The Federal rules restrict any use of the information to criminally investigate or prosecute any alcohol or drug abuse patient.[facility] AndersonIn the event this information is protected by the Federal Confidentiality of Alcohol and Drug Abuse Patient Records regulations: The Federal rules restrict any use of the information to criminally investigate or prosecute any alcohol or drug abuse patient.[facility] AndersonIn the event this information is protected by the Federal Confidentiality of Alcohol and Drug Abuse Patient Records regulations: The Federal rules restrict any use of the information to criminally investigate or prosecute any alcohol or drug abuse patient.[facility] AndersonIn the event this information is protected by the Federal Confidentiality of Alcohol and Drug Abuse Patient Records regulations: The Federal rules restrict any use of the information to criminally investigate or prosecute any alcohol or drug abuse patient.[facility] AndersonIn the event this information is protected by the Federal Confidentiality of Alcohol and Drug Abuse Patient Records regulations: The Federal rules restrict any use of the information to criminally investigate or prosecute any alcohol or drug abuse patient.[facility] AndersonIn the event this information is protected by the Federal Confidentiality of Alcohol and Drug Abuse Patient Records regulations: The Federal rules restrict any use of the information to criminally investigate or prosecute any alcohol or drug abuse patient.[facility] AndersonIn the event this information is protected by the Federal Confidentiality of Alcohol and Drug Abuse Patient Records regulations: The Federal rules restrict any use of the information to criminally investigate or prosecute any alcohol or drug abuse patient.[facility] AndersonIn the event this information is protected by the Federal Confidentiality of Alcohol and Drug Abuse Patient Records regulations: The Federal rules restrict any use of the information to criminally investigate or prosecute any alcohol or drug abuse patient.[facility] AndersonIn the event this information is protected by the Federal Confidentiality of Alcohol and Drug Abuse Patient Records regulations: The Federal rules restrict any use of the information to criminally investigate or prosecute any alcohol or drug abuse patient.[facility] AndersonIn the event this information is protected by the Federal Confidentiality of Alcohol and Drug Abuse Patient Records regulations: The Federal rules restrict any use of the information to criminally investigate or prosecute any alcohol or drug abuse patient.[facility] AndersonIn the event this information is protected by the Federal Confidentiality of Alcohol and Drug Abuse Patient Records regulations: The Federal rules restrict any use of the information to criminally investigate or prosecute any alcohol or drug abuse patient.[facility] AndersonIn the event this information is protected by the Federal Confidentiality of Alcohol and Drug Abuse Patient Records regulations: The Federal rules restrict any use of the information to criminally investigate or prosecute any alcohol or drug abuse patient.[facility] AndersonIn the event this information is protected by the Federal Confidentiality of Alcohol and Drug Abuse Patient Records regulations: The Federal rules restrict any use of the information to criminally investigate or prosecute any alcohol or drug abuse patient.[facility] AndersonIn the event this information is protected by the Federal Confidentiality of Alcohol and Drug Abuse Patient Records regulations: The Federal rules restrict any use of the information to criminally investigate or prosecute any alcohol or drug abuse patient.[facility] AndersonIn the event this information is protected by the Federal Confidentiality of Alcohol and Drug Abuse Patient Records regulations: The Federal rules restrict any use of the information to criminally investigate or prosecute any alcohol or drug abuse patient.[facility] AndersonIn the event this information is protected by the Federal Confidentiality of Alcohol and Drug Abuse Patient Records regulations: The Federal rules restrict any use of the information to criminally investigate or prosecute any alcohol or drug abuse patient.[facility] AndersonIn the event this information is protected by the Federal Confidentiality of Alcohol and Drug Abuse Patient Records regulations: The Federal rules restrict any use of the information to criminally investigate or prosecute any alcohol or drug abuse patient.[facility] AndersonIn the event this information is protected by the Federal Confidentiality of Alcohol and Drug Abuse Patient Records regulations: The Federal rules restrict any use of the information to criminally investigate or prosecute any alcohol or drug abuse patient.[facility] AndersonIn the event this information is protected by the Federal Confidentiality of Alcohol and Drug Abuse Patient Records regulations: The Federal rules restrict any use of the information to criminally investigate or prosecute any alcohol or drug abuse patient.[facility] AndersonIn the event this information is protected by the Federal Confidentiality of Alcohol and Drug Abuse Patient Records regulations: The Federal rules restrict any use of the information to criminally investigate or prosecute any alcohol or drug abuse patient.[facility] Reason for Visit (unrecogniz ed section and [...] Care Teams (unrecognized sec tion and content) Environmental Engineering Assistant Relationship Specialty Start Date End Date Devon Moreira, DO [address] [place] [address] PCP - General 05/27/00 Environmental Engineering Assistant Relationship Specialty Start Date End Date Devon Moreira, DO [address] [place] [address] PCP - General 05/27/00 Environmental Engineering Assistant Relationship Specialty Start Date End Date Devon Moreira, DO [address] [place] [address] PCP - General 05/27/00 Environmental Engineering Assistant Relationship Specialty Start Date End Date Devon Moreira, DO [address] [place] [address] PCP - General 05/27/00 Environmental Engineering Assistant Relationship Specialty Start Date End Date Devon Moreira, DO [address] [place] [address] PCP - General 05/27/00 Environmental Engineering Assistant Relationship Specialty Start Date End Date Devon Moreira, DO [address] [place] [address] PCP - General 05/27/00 Environmental Engineering Assistant Relationship Specialty Start Date End Date Devon Moreira, DO [address] [place] [address] PCP - General 05/27/00 Environmental Engineering Assistant Relationship Specialty Start Date End Date Devon Moreira, DO [address] [place] [address] PCP - General 05/27/00 Environmental Engineering Assistant Relationship Specialty Start Date End Date Devon Moreira, DO [address] [place] [address] PCP - General 05/27/00 Environmental Engineering Assistant Relationship Specialty Start Date End Date Devon Moreira, DO [address] [place] [address] PCP - General 05/27/00 Environmental Engineering Assistant Relationship Specialty Start Date End Date Devon Moreira, DO [address] [place] [address] PCP - General 05/27/00 Environmental Engineering Assistant Relationship Specialty Start Date End Date Devon Moreira, DO [address] [place] [address] PCP - General 05/27/00 Environmental Engineering Assistant Relationship Specialty Start Date End Date Devon Moreira, DO [address] [place] [address] PCP - General 05/27/00 Environmental Engineering Assistant Relationship Specialty Start Date End Date Devon Moreira, DO [address] [place] [address] PCP - General 05/27/00 Environmental Engineering Assistant Relationship Specialty Start Date End Date Devon Moreira, DO [address] [place] [address] PCP - General 05/27/00 Environmental Engineering Assistant Relationship Specialty Start Date End Date Devon Moreira, DO [address] [place] [address] PCP - General 05/27/00 Environmental Engineering Assistant Relationship Specialty Start Date End Date Devon Moreira, DO [address] [place] [address] PCP - General 05/27/00 Environmental Engineering Assistant Relationship Specialty Start Date End Date Devon Moreira, DO [address] [place] [address] PCP - General 05/27/00 Environmental Engineering Assistant Relationship Specialty Start Date End Date Devon Moreira DO [address] [place] [address] PCP - General 05/27/00 Team Status: Active Member Role Status Dates Devon Lillie Primary Care Provider Active Team Status: Inactive Member Role Status Dates Devon Moreira Primary Care Provider Active Sadia Aguilar APRN Attending Provider Active Environmental Engineering Assistant Relationship Specialty Start Date End Date Devon Moreira DO [address] [place] [address] PCP - General 05/27/00 Environmental Engineering Assistant Relationship Specialty Start Date End Date Devon Moreira DO [address] [place] [address] PCP - General 05/27/00 PRN Active and Recently Administ ered Medications (unrecognized section and content) Medication Order 01/10/2022 01/11/2022 01/12/2022 lidocaine (PF) 10 mg/mL (1 %) injection (XYLOCAINE) SUBCUTANEOUS, X (OR/PROCEDURE) PRN, Starting on Wed01/12/22 at 1032, Until Wed01/13/22 at 0303, Intraprocedure 1032 (Given - Provid er: Vani Hdz APRN.BINITROTOLUENE OPERATOR) Goals (unrecognized section and content) Goals may [...] BE BASED ON THE PRIMARY CLINICAL RECORDS. [employer] provides no warranty or guarantee of the accuracy or completeness of information in this document.
[2023-03-10 08:05] LABS: Basophils Percent Auto 0.5 % (0.2-2.0); Eosinophils Absolute Auto 0.2 10^3/uL (0.0-0.7); Hematocrit 33.2 % (42.0-54.0); Hemoglobin 10.4 g/dL (14.0-18.0); Immature Granulocytes Abs Auto 0.02 10^3/uL (0.00-0.03); Immature Granulocytes Pct Auto 0.3 % (0.0-0.5); Lymphocytes Absolute Auto 2.6 10^3/uL (1.2-3.8); Lymphocytes Percent Auto 35.7 % (20.5-60.0); Mean Corpuscular HGB Conc 31.3 g/dL (29.9-35.2); Mean Corpuscular Hemoglobin 27.3 pg (25.9-34.0); Mean Corpuscular Volume 87.1 fL (80.0-94.0); Mean Platelet Volume 10.5 fL (9.5-13.5); Monocytes Absolute Auto 0.9 10^3/uL (0.3-0.8); Monocytes Percent Auto 11.6 % (1.7-12.0); Neutrophils Absolute Auto 3.6 10^3/uL (1.4-6.5); Neutrophils Percent Auto 48.9 % (43.0-75.0); Platelet Count 191 10^3/uL (150-450); Red Blood Count 3.81 10^6/uL (4.70-6.10); Red Cell Distribution Width 15.6 % (11.0-15.0); White Blood Count 7.3 10^3/uL (4.0-11.0)
[2023-03-10 08:24] LABS: INR 2.36; Prothrombin Time 23.8 sec (9.0-11.6)
[2023-03-10 09:06] LABS: Alanine Aminotransferase 18 U/L (16-63); Albumin Globulin Ratio 0.8; Albumin Level 2.4 g/dL (3.4-5.0); Alkaline Phosphatase 59 U/L (46-116); Anion Gap 13.5; Aspartate Amino Transferase 20 U/L (15-37); BUN Creatinine Ratio 31.4; Bilirubin Total 0.5 mg/dL (0.2-1.0); Calcium 8.2 mg/dL (8.5-10.1); Carbon Dioxide 26.2 mmol/L (21.0-32.0); Chloride 107 mmol/L (98-107); Estimated GFR (African America >60 (>=60); Estimated GFR (Non-African Ame 58 (>=60); Globulin 3.2 g/dL; Glucose 112 mg/dL (74-106); Phosphorus 4.1 mg/dL (2.6-4.7); Potassium 3.7 mmol/L (3.5-5.1); Sodium 143 mmol/L (136-145); Total Protein 5.6 g/dL (6.4-8.2)
[2023-03-12 20:13] LABS: Tacrolimus (FK506), Blood 4.2 ng/mL (2.0-20.0)
== END 2023-03-10 01:24 | disposition home or self-care (01) ==
LOC: LAB 01:23
PROVIDERS: PCP Internal Medicine; Visit Provider Internal Medicine
DX: N18.9 Chronic kidney disease, unspecified (principal)
CPT/HCPCS: 36415; 80053; 80197; 83735; 84100; 85025; 85610

== ENCOUNTER 2023-03-17 02:27 | Outpatient (REF) | payer MEDICARE, OTHER, SELFPAY ==
--- OUTSIDE RECORDS SUMMARY | 2023-03-17 02:32 | XMS_ITS | CCD ---
Author Name Unknown Address [address] [place] [address] Organization [facility] Care Team Providers Care Customer Service Operator Name Role Phone PROVIDER, UNKNOWN Attending Unavailable [...] Unavailable FAGGIONATO, ARTUR Admitting Unavailable BALL, DR OSROIO Primary Care Unavailable FAGGIONATO, ARTUR Consulting Unavailable [...] [PYRIDOSTIGMINE BROMIDE] Drug Allergy 2 GI [facility] Work Phone: (1 source) ALLERGIES NOT ON FILE; Translations: [ALLERGIES NOT ON FILE] Propensity to adverse reactions (disorder) [facility] Repository Medications Current Medications Medication Drug [...] 0 Active take [address] [facility] every six hours as needed for [...] MEALS January 23, 2019 1:00am K Phos Throckmorton-Sod Phos Di & Throckmorton 155-852-130 MG (5 sources) take 155-852 tablets by mouth twice daily K Phos Throckmorton-Sod Phos Di & Throckmorton 155-852-130 MG 1 tablet Orally twice daily Active take 155-852 tablets by mouth four times daily take 155-852 tablets by mouth four times daily K Phos Throckmorton-Sod Phos Di & Throckmorton 155-852-130 MG 1 tablet Orally Four times [...] needed. docusate sodium 50 mg / sennosides, group home 8.6 mg oral tablet (20 sources) Start: [...] by mouth daily with lunch. Magic Cup Randall with lunch 7110 mL 0 12/11/2021 Active Comment on above: Take 237 mL by mouth daily with lunch. 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 INSULIN] Onset: 2 Episodic Other aftercare (5 sources) prison (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 of anticoagulants; Translations: [FCI CURRNT USE ANTICOAGULANTS] Onset: 3 Episodic Other [...] 07-30-2006 Episodic Other aftercare (2 sources) Other long-term (current) drug therapy; Translations: [OTH SENIOR STAFF CONSULTANT CURRENT DRUG THERAPY] Onset: 02-05-2022 Episodic Other aftercare (4 sources) Encounter for orthopedic aftercare following surgical amputation; Translations: [ENC ORTHOPED AFTERCARE FLW SURG AMP] Onset: 02-05-2022 Episodic Other aftercare (4 sources) 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 Magic Cup Randall with lunch aspirin, enteric coated (ASPIRIN, ENTERIC [...] in am? thanks! RF Pts RN at [facility] reports pts sister picks up Rx [...] Apply 0. (more content not included)... Normal [facility] Office Visiton 09-09-2022 Follow-up visit [id number] Alex Almonte 1945 M Date Provider Department Center 09/09/2022 1596-SARTHAK PARNELL [facility] Family History Problem Relation Age of Onset Cancer Mother Aneurysm Father Cancer Father Parkinsonism Father Family Status - Relation Status Age at Mother Father Level of Service:89210 TX OFFICE/OUTPATIENT ESTABLISHED MOD MDM 30-39 MIN Normal [facility] Glucose Poct Glucometerson 0 07-20-2022 Commemt1 Glu2: Cleaned Meter Normal [facility] Comment on above: Result Comment: PERF ORMED BY: [facility] [address] [place] [address] PATHOLOGIST WHEAT WASHER JOSE F ELLIOTT M.D. Performed By: #### G LULS #### Point of Care testing , Glucose [Mass/Vol] 176 mg/dL Normal [facility] Comment on above: Result Comment: [place] Glucose Reference Range is dependent on time and content of last meal. Glucose of more than 200 mg/dL in a nonstressed, ambulatory subject supports the diagnosis of Diabetes Mellitus. Performed By: #### G LULS #### Point of Care testing , FK506 (TACROLIMUS) WHOLE BLO ODon 07-12-2022 Tacrolimus (FK506), Blood 10.9 ng/mL Normal 2.0-20.0 [facility] Comment on above: Result Comment: Trou gh (immediately following transplant) 15.0 . Trough (steady state, 2 weeks or more after transplant): 3.0 - 8.0 . Performed by LC-MS/MS technology. Performed By: #### F K506T ####[facility] [address] [place], [place] [address]Dr. Farhat Leal CBC AUTO DIFFon 07-10-2022 BASO # 0.0 103/ul Normal 0.0-0.1 [facility] Comment on above: Performed By: #### C BC ####[facility] Ablkrprscv[address] [place], [place] [address]Dr. Farhat Leal Basophils/100 WBC (Bld) 0.5 % Normal 0.2-2.0 [facility] Comment on above: Performed By: #### C BC ####[facility] Jwmcvpjpzb[address] [place], [place] [address]Dr. Farhat Leal EO # 0.3 103/ul Normal 0.0-0.7 [facility] Comment on above: Performed By: #### C BC ####[facility] Snttjuinev[address] [place], [place] [address]Dr. Farhat Leal Eosinophils/100 WBC (Bld) 4.9 % Normal 0.9-7.0 [facility] Comment on above: Performed By: #### C BC ####[facility] Gupjdvrgbl[address] [place], [place] [address]Dr. Farhat Leal Erythrocyte distribution width (RBC) [Ratio] 13.8 % Normal 11.0-15.0 [facility] Comment on above: Performed By: #### C BC ####[facility] Dlofinzvou[address] [place], [place] [address]Dr. Farhat Leal Hematocrit (Bld) [Volume fraction] 36.6 % Critically low 42.0-54.0 [facility] Comment on above: Performed By: #### C BC ####[facility] Msixzuawuc[address] [place], [place] [address]Dr. Farhat Leal Hemoglobin (Bld) [Mass/Vol] 12.2 g/dL Critically low 14.0-18.0 [facility] Comment on above: Performed By: #### C BC ####[facility] [address] [place] [phone]. Madelynlorri Elvis IG # 0.01 10e3/ul Normal 0.00-0.03 [facility] Comment on above: Performed By: #### C BC ####[facility] O[address]zgcypj[address] [place] [phone]. Farhat Leal IG % 0.2 % Normal 0.0-0.5 [facility] Comment on above: Performed By: #### C BC ####[facility] [address]xkl[address] [place] [address]Dr. Farhat Leal LYMPH # 2.2 103/ul Normal 1.2-3.8 [facility] Comment on above: Performed By: #### C BC ####[facility] F[address]znmdbwx65[address] [place] [address]Dr. Farhat Leal Lymphocytes/100 WBC (Bld) 33.9 % Normal 20.5-60.0 [facility] Comment on above: Performed By: #### C BC ####[facility] Xqrzxhnuhd[address] [place] [phone]. Farhat Leal MANUAL DIFF REQ NO Normal [facility] Comment on above: Performed By: #### C BC ####[facility] [address]jqiakuh[address] [place] [phone]. Farhat Leal MCH (RBC) [Entitic mass] 31.0 pg Normal 25.9-34.0 [facility] Comment on above: Performed By: #### C BC ####[facility] Qqvulcuepg69[address] [place] [phone]. Farhat Leal MCHC (RBC) [Mass/Vol] 33.3 g/dL Normal 29.9-35.2 [facility] Comment on above: Performed By: #### C BC ####[facility] Lq[address]lamfjg[address] [place] [phone]. Farhat Leal MCV (RBC) [Entitic vol] 93.1 fL Normal 80.0-94.0 [facility] Comment on above: Performed By: #### C BC ####[facility] Qcvzfftsxw3609 [place] [phone]. Farhat Leal MONO # 0.7 103/ul Normal 0.3-0.8 [facility] Comment on above: Performed By: #### C BC ####[facility] Anexprmzcx[address] [place] [phone]. Farhat Leal Monocytes/100 WBC (Bld) 10.8 % Normal 1.7-12.0 [facility] Comment on above: Performed By: #### C BC ####[facility] Ckaqdtviup[address] [place] [phone]. Farhat Leal NEUT # 3.2 103/ul Normal 1.4-6.5 [facility] Comment on above: Performed By: #### C BC ####[facility] X[address]fbwpll[address] [place] [address]Dr. Farhat Leal Neutrophils/100 WBC (Bld) 49.7 % Normal 43.0-75.0 [facility] Comment on above: Performed By: #### C BC ####[facility] Jvjbiflhov57[address] [place] [phone]. Farhat Leal Platelet mean volume (Bld) [Entitic vol] 10.9 fL Normal 9.5-13.5 [facility] Comment on above: Performed By: #### C BC ####[facility] Olgxzrztyi[address] [place] [phone]. Farhat Leal PLT 195 103/ul Normal 150-450 [facility] Comment on above: Performed By: #### C BC ####[facility] Urzarlgqqe5967 [place] [phone]. Farhat Leal RBC 3.93 106/ul Critically low 4.70-6.10 The [facility] Comment on above: Performed By: #### C BC ####[facility] Ubjxnqpbuw2151 [place] [phone]. Farhat Leal WBC 6.4 103/ul Normal 4.0-11.0 [facility] Comment on above: Performed By: #### C BC ####[facility] Sqs[address]icebn8187 [place] [address]Dr. Farhat Leal MAGNESIUMon 07-10-2022 Magnesium [Mass/Vol] 1.9 mg/dL Normal 1.8-2.4 [facility] Comment on above: Performed By: #### M Anais PHOS ####[facility] Zmhzvzfbhg4[address] [place] [address]Dr. Farhat Leal PHOSPHORUSon 07-10-2022 Phosphate [Mass/Vol] 4.7 mg/dL Normal 2.6-4.7 [facility] Comment on above: Performed By: #### M ANA ManzoS ####[facility] Zndkymmpaz[address] [place] [address]Dr. Farhat Leal PROF 14(COMP METB)on 023 Albumin [Mass/Vol] 2.7 g/dL Critically low 3.4-5.0 [facility] Comment on above: Performed By: #### C MP ####[facility] Uiefnhyvgr[address] [place], [place] [address]Dr. Farhat Leal Albumin/Globulin [Mass ratio] 0.8 {ratio} Normal [facility] Comment on above: Performed By: #### C MP ####[facility] Gcpkklwgvq[address] [place], [place] [address]Dr. Farhat Leal ALP [Catalytic activity/Vol] 59 U/L Normal 46-116 [facility] Comment on above: Performed By: #### C MP ####[facility] T[address]com[address] [place], [place] [address]Dr. Farhat Leal ALT [Catalytic activity/Vol] 16 U/L Normal 16-63 [facility] Comment on above: Performed By: #### C MP ####[facility] S[address]fpcoyxh[address] [place], [place] [address]Dr. Farhat Leal Anion gap [Moles/Vol] 12.3 mmol/L Normal [facility] Comment on above: Performed By: #### C MP ####[facility] Ojyvixbyqi8[address] [place], [place] [address]Dr. Farhat Leal AST [Catalytic activity/Vol] 17 U/L Normal 15-37 [facility] Comment on above: Performed By: #### C MP ####[facility] Adnbjrcwaz74[address] [place] [address]Dr. Farhat Elvis Bilirubin [Mass/Vol] 0.5 mg/dL Normal 0.2-1.0 [facility] Comment on above: Performed By: #### C MP ####[facility] Ksvrhydqwb69[address] [place], [place] [address]Dr. Farhat Elvis Calcium [Mass/Vol] 8.5 mg/dL Normal 8.5-10.1 [facility] Comment on above: Performed By: #### C MP ####[facility] Padgvrisdz2916[address] [place], [place] [address]Dr. Farhat Elvis Chloride [Moles/Vol] 104 mmol/L Normal 98-107 [facility] Comment on above: Performed By: #### C MP ####[facility] Lnqmkveomd11[address] [place], [place] [address]Dr. Farhat Elvis CO2 [Moles/Vol] 27.6 mmol/L Normal 21.0-32.0 [facility] Comment on above: Performed By: #### C MP ####[facility] Stcmaooxzm[address] [place], [place] [address]Dr. Farhat Elvis Creatinine [Mass/Vol] 1.79 mg/dL Critically high 0.70-1.30 [facility] Comment on above: Performed By: #### C MP ####[facility] Gstrfgxgzx6[address] [place], [place] [address]Dr. Farhat Elvis EGFR-AF ICELANDIC 45 mL/min/1.73m2 Critically low >=60 [facility] Comment on above: Performed By: #### C MP ####[facility] Ydwvqwsukv[address] [place], [place] [address]Dr. Farhat Leal EGFR-NON AF ICELANDIC 37 mL/min/1.73m2 Critically low >=60 [facility] Comment on above: Performed By: #### C MP ####[facility] Wnazfpexpg2598[address] [place], [place] [address]Dr. Farhat Leal Globulin (S) [Mass/Vol] 3.2 g/dL Normal [facility] Comment on above: Performed By: #### C MP ####[facility] Igisiyccok[address]82 [place] [address]Dr. Farhat Leal Glucose [Mass/Vol] 203 mg/dL Critically high 74-106 [facility] Comment on above: Performed By: #### C MP ####[facility] Jctfidpjcg9465 [place] [address]Dr. Farhat Leal Potassium [Moles/Vol] 3.9 mmol/L Normal 3.5-5.1 [facility] Comment on above: Performed By: #### C MP ####[facility] Rtsomxyphj[address] [place], [place] [address]Dr. Farhat Leal Protein [Mass/Vol] 5.9 g/dL Critically low 6.4-8.[address] [facility] Comment on above: Performed By: #### C MP ####[facility] Mdowdalyuw9[address] [place], [place] [address]Dr. Farhat Leal Sodium [Moles/Vol] 140 mmol/L Normal 136-145 [facility] Comment on above: Performed By: #### C MP ####[facility] Ngndanlqdi[address] [place], [place] [address]Dr. Farhat Leal Urea nitrogen [Mass/Vol] 61.0 mg/dL Critically high 7.0-18.0 [facility] Comment on above: Performed By: #### C MP ####[facility] Bbjsgwlxbd[address] [place], [place] [address]Dr. Farhat Leal Urea nitrogen/Creatinine [Mass ratio] 34.1 mg/mg Normal [facility] Comment on above: Performed By: #### C MP ####[facility] Jzmhzurchp[address] [place], [place] [address]Dr. Farhat Leal PROTIMEon 07-10-2022 INR Coag (PPP) [Relative time] 2.95 {INR} Normal [facility] Comment on above: Performed By: #### P T ####[facility] [address]mlfc[address] [place], [place] [address]Dr. Farhat Leal INR GUIDELINES SEE BELOW Normal [facility] Comment on above: Result Comment: MALINA RED INR: 2.0 - 3.0 CONDITIONS NOT LISTED BELOW 2.5 - 3.5 FOR PROSTHETIC HEART VALVE REPLACEMENT 2.5 - 3.5 RECURRENT THROMBOSIS Performed By: #### P T ####[facility] Xwdrafuhmg[address] [place], [place] [address]Dr. Farhat Leal PT Coag (PPP) [Time] 29.4 s Critically high 9.0-11.6 [facility] Comment on above: Performed By: #### P T ####[facility] Exbnrbkqmy2[address] [place], [place] [address]Dr. Farhat Leal FK506 (TACROLIMUS) WHOLE BLO ODon 07-07-2022 Tacrolimus (FK506), Blood 8.3 ng/mL Normal 2.0-20.0 [facility] Comment on above: Result Comment: Trou gh (immediately following transplant) 15.0 . Trough (steady state, 2 weeks or more after transplant): 3.0 - 8.0 . Performed by LC-MS/MS technology. Performed By: #### F K506T ####[facility] Fmdatdpfrm[address] [place], [place] [address]Dr. Farhat Leal CBC AUTO DIFFon 07-03-2022 BASO # 0.0 103/ul Normal 0.0-0.1 [facility] Comment on above: Performed By: #### C BC ####[facility] Gbpwlryafj38[address] [place], [place] [address]Dr. Farhat Leal Basophils/100 WBC (Bld) 0.6 % Normal 0.2-2.0 [facility] Comment on above: Performed By: #### C BC ####[facility] Mtnyywiptz[address] [place], [place] [address]Dr. Farhat Leal EO # 0.3 103/ul Normal 0.0-0.7 [facility] Comment on above: Performed By: #### C BC ####[facility] Nevfkmstxx28[address] [place], [place] [address]Dr. Farhat Leal Eosinophils/100 WBC (Bld) 4.1 % Normal 0.9-7.0 [facility] Comment on above: Performed By: #### C BC ####[facility] Gcezjxhcer0408 [place] [address]Dr. Farhat Leal Erythrocyte distribution width (RBC) [Ratio] 14.0 % Normal 11.0-15.0 [facility] Comment on above: Performed By: #### C BC ####[facility] Fcqkkfmpow[address] [place], [place] [address]Dr. Farhat Leal Hematocrit (Bld) [Volume fraction] 35.9 % Critically low 42.0-54.0 [facility] Comment on above: Performed By: #### C BC ####[facility] [address]dsgruccj[address] [place], [place] [address]Dr. Farhat Leal Hemoglobin (Bld) [Mass/Vol] 12.0 g/dL Critically low 14.0-18.0 [facility] Comment on above: Performed By: #### C BC ####[facility] N[address]plokslv[address] [place], [place] [address]Dr. Farhat Leal IG # 0.04 10e3/ul Critically high 0.00-0.03 [facility] Comment on above: Performed By: #### C BC ####[facility] Utvndfqtry97[address] [place], [place] [address]Dr. Farhat Leal IG % 0.6 % Critically high 0.0-0.5 [facility] Comment on above: Performed By: #### C BC ####[facility] Ylmjucugqv[address] [place], [place] [address]Dr. Farhat Leal LYMPH # 1.5 103/ul Normal 1.2-3.8 [facility] Comment on above: Performed By: #### C BC ####[facility] Nmhxhnctal[address] [place], [place] [address]Dr. Farhat Lael Lymphocytes/100 WBC (Bld) 21.5 % Normal 20.5-60.0 [facility] Comment on above: Performed By: #### C BC ####[facility] Rbmiwelvig[address] [place], [place] [address]Dr. Farhat Leal MANUAL DIFF REQ NO Normal [facility] Comment on above: Performed By: #### C BC ####[facility] Jjhzqvlnjw6896 [place] [phone]. Farhat Elvis MCH (RBC) [Entitic mass] 30.8 pg Normal 25.9-34.0 [facility] Comment on above: Performed By: #### C BC ####[facility] Anliptiyty[address] [place] [address]Dr. Farhat Elvis MCHC (RBC) [Mass/Vol] 33.4 g/dL Normal 29.9-35.2 [facility] Comment on above: Performed By: #### C BC ####[facility] [address]nczssw[address] [place], [place] [address]Dr. Madelynlorri Leal MCV (RBC) [Entitic vol] 92.1 fL Normal 80.0-94.0 [facility] Comment on above: Performed By: #### C BC ####[facility] [address]rlrljpv[address] [place], [place] [address]Dr. Farhat Leal MONO # 0.6 103/ul Normal 0.3-0.8 [facility] Comment on above: Performed By: #### C BC ####[facility] Gfhpyquned[address] [place], [place] [address]Dr. Madelynlorri Leal Monocytes/100 WBC (Bld) 8.7 % Normal 1.7-12.0 [facility] Comment on above: Performed By: #### C BC ####[facility] Kcowvjmwkv[address] [place], [place] [address]Dr. Farhat Leal NEUT # 4.4 103/ul Normal 1.4-6.5 [facility] Comment on above: Performed By: #### C BC ####[facility] Dykxzvmxzs[address] [place], [place] [address]DrSkylar Leal Neutrophils/100 WBC (Bld) 64.5 % Normal 43.0-75.0 [facility] Comment on above: Performed By: #### C BC ####[facility] Riwhfhzpgx[address] [place], [place] [address]Dr. Farhat Leal Platelet mean volume (Bld) [Entitic vol] 10.1 fL Normal 9.5-13.5 [facility] Comment on above: Performed By: #### C BC ####[facility] [address]qli[address]awrp38[address] [place] [address]Dr. Madelynlorri Elvis PLT 177 103/ul Normal 150-450 [facility] Comment on above: Performed By: #### C BC ####[facility] Cylbpggwxh5[address] [place] [phone]. Madelynlorri Elvis RBC 3.90 106/ul Critically low 4.70-6.10 [facility] Comment on above: Performed By: #### C BC ####[facility] G[address]urkqfkz14[address] [place] [phone]. Madelynlorri Elvis WBC 6.8 103/ul Normal 4.0-11.0 [facility] Comment on above: Performed By: #### C BC ####[facility] Fehttqhpyu045[address] [place] [address]Dr. Farhat Leal PROF 14(COMP METB)on 023 Albumin [Mass/Vol] 2.8 g/dL Critically low 3.4-5.0 [facility] Comment on above: Performed By: #### C MP ####[facility] Ulnvismbek[address] [place] [address]Dr. Farhat Leal Albumin/Globulin [Mass ratio] 0.8 {ratio} Normal [facility] Comment on above: Performed By: #### C MP ####[facility] Stuwmsirmv2440 [place] [address]Dr. Farhat Leal ALP [Catalytic activity/Vol] 68 U/L Normal 46-116 [facility] Comment on above: Performed By: #### C MP ####[facility] Ymfdinjezo2347 [place] [address]Dr. Farhat Leal ALT [Catalytic activity/Vol] 20 U/L Normal 16-63 [facility] Comment on above: Performed By: #### C MP ####[facility] Qpixhyivne6307 [place] [address]DrSkylar Leal Anion gap [Moles/Vol] 11.1 mmol/L Normal [facility] Comment on above: Performed By: #### C MP ####[facility] Ktpfsojpws1083 [place] [phone]. Farhat Leal AST [Catalytic activity/Vol] 22 U/L Normal 15-37 [facility] Comment on above: Performed By: #### C MP ####[facility] Tvwsoremwz4679 [place] [phone]. Farhat Leal Bilirubin [Mass/Vol] 0.4 mg/dL Normal 0.2-1.0 [facility] Comment on above: Performed By: #### C MP ####[facility] Hrzipozjvd4894 [place] [address]Dr. Farhat Leal Calcium [Mass/Vol] 8.5 mg/dL Normal 8.5-10.1 [facility] Comment on above: Performed By: #### C MP ####[facility] [address]qybmmlxg[address] [place], [place] [address]Dr. Farhat Leal Chloride [Moles/Vol] 106 mmol/L Normal 98-107 [facility] Comment on above: Performed By: #### C MP ####[facility] Ibuipiqaax[address] [place], [place] [address]Dr. Farhat Leal CO2 [Moles/Vol] 29.1 mmol/L Normal 21.0-32.0 [facility] Comment on above: Performed By: #### C MP ####[facility] Mszjclqaap[address] [place], [place] [address]Dr. Farhat Leal Creatinine [Mass/Vol] 1.70 mg/dL Critically high 0.70-1.30 [facility] Comment on above: Performed By: #### C MP ####[facility] Ielhcylppj27[address] [place] [phone]. Farhat Elvis EGFR-AF ICELANDIC 48 mL/min/1.73m2 Critically low >=60 [facility] Comment on above: Performed By: #### C MP ####[facility] Gxizprkmli6[address] [place] [phone]. Farhat Leal EGFR-NON AF ICELANDIC 39 mL/min/1.73m2 Critically low >=60 [facility] Comment on above: Performed By: #### C MP ####[facility] Kcbczubwxd[address] [place] [address]Dr. Farhat Leal Globulin (S) [Mass/Vol] 3.6 g/dL Normal [facility] Comment on above: Performed By: #### C MP ####[facility] Tolooinrgv32[address] [place] [address]Dr. Farhat Leal Glucose [Mass/Vol] 312 mg/dL Critically high 74-106 [facility] Comment on above: Performed By: #### C MP ####[facility] Tznkeeldil4[address] [place] [address]Dr. Farhat Leal Potassium [Moles/Vol] 4.2 mmol/L Normal 3.5-5.1 [facility] Comment on above: Performed By: #### C MP ####[facility] Fugmakonzb[address] [place], [place] [address]Dr. Farhat Leal Protein [Mass/Vol] 6.4 g/dL Normal 6.4-8.2 [facility] Comment on above: Performed By: #### C MP ####[facility] Eygzdtwkzx7[address] [place], [place] [address]Dr. Farhat Leal Sodium [Moles/Vol] 142 mmol/L Normal 136-145 [facility] Comment on above: Performed By: #### C MP ####[facility] Yeewnfxwvu7[address] [place], [place] [address]Dr. Farhat Leal Urea nitrogen [Mass/Vol] 49.0 mg/dL Critically high 7.0-18.0 [facility] Comment on above: Performed By: #### C MP ####[facility] Gixuxfitub0[address] [place], [place] [address]Dr. Farhat Leal Urea nitrogen/Creatinine [Mass ratio] 28.8 mg/mg Normal [facility] Comment on above: Performed By: #### C MP ####[facility] Oihsigzcit23[address] [place] [address]Dr. Farhat Elvis PROTIMEon 07-03-2022 INR Coag (PPP) [Relative time] 2.23 {INR} Normal [facility] Comment on above: Performed By: #### P T ####[facility] Idmspydthe94[address] [place] [address]Dr. Farhat Leal INR GUIDELINES SEE BELOW Normal [facility] Comment on above: Result Comment: MALINA RED INR: 2.0 - 3.0 CONDITIONS NOT LISTED BELOW 2.5 - 3.5 FOR PROSTHETIC HEART VALVE REPLACEMENT 2.5 - 3.5 RECURRENT THROMBOSIS Performed By: #### P T ####[facility] Xecdhhxzmr040[address] [place], [place] [address]Dr. Farhat Leal PT Coag (PPP) [Time] 22.6 s Critically high 9.0-11.6 [facility] Comment on above: Performed By: #### P T ####[facility] Wpdkokflnd5[address] [place], [place] [address]Dr. Farhat Leal FK506 (TACROLIMUS) WHOLE BLO ODon 06-29-2022 Tacrolimus (FK506), Blood 12.2 ng/mL Normal 2.0-20.0 [facility] Comment on above: Result Comment: Trou gh (immediately following transplant) 15.0 . Trough (steady state, 2 weeks or more after transplant): 3.0 - 8.0 . Performed by LC-MS/MS technology. Performed By: #### F K506T ####[facility] Zlklgspbsa14[address] [place], [place] [address]Dr. Farhat Leal CBC AUTO DIFFon 06-26-2022 BASO # 0.0 103/ul Normal 0.0-0.1 [facility] Comment on above: Performed By: #### C BC ####[facility] Duvdgnijbc24[address] [place], [place] [address]Dr. Farhat Leal Basophils/100 WBC (Bld) 0.5 % Normal 0.2-2.0 [facility] Comment on above: Performed By: #### C BC ####[facility] Kqgtgehqui0895 [place] [address]Dr. Farhat Leal EO # 0.3 103/ul Normal 0.0-0.7 [facility] Comment on above: Performed By: #### C BC ####[facility] Bcwrfmhfna7[address] [place] [phone]. Farhat Leal Eosinophils/100 WBC (Bld) 4.3 % Normal 0.9-7.0 [facility] Comment on above: Performed By: #### C BC ####[facility] Levfatacmy1370 [place] [address]Dr. Farhat Leal Erythrocyte distribution width (RBC) [Ratio] 14.1 % Normal 11.0-15.0 [facility] Comment on above: Performed By: #### C BC ####[facility] Pwjoxjihjd1606[address] [place], [place] [address]Dr. Farhat Leal Hematocrit (Bld) [Volume fraction] 35.4 % Critically low 42.0-54.0 [facility] Comment on above: Performed By: #### C BC ####[facility] Mylfjlgvxt9[address] [place], [place] [address]Dr. Farhat Leal Hemoglobin (Bld) [Mass/Vol] 11.8 g/dL Critically low 14.0-18.0 [facility] Comment on above: Performed By: #### C BC ####[facility] Upvkmoycjc2913[address] [place], [place] [address]Dr. Farhat Leal IG # 0.02 10e3/ul Normal 0.00-0.03 [facility] Comment on above: Performed By: #### C BC ####[facility] Gvklkcmumi[address] [place], [place] [address]Dr. Farhat Leal IG % 0.3 % Normal 0.0-0.5 [facility] Comment on above: Performed By: #### C BC ####[facility] Edpaiahjyg500[address] [place], [place] [address]Dr. Farhat Leal LYMPH # 2.4 103/ul Normal 1.2-3.8 [facility] Comment on above: Performed By: #### C BC ####[facility] Fknlxoqubw3009[address] [place], [place] [address]Dr. Farhat Leal Lymphocytes/100 WBC (Bld) 40.4 % Normal 20.5-60.0 [facility] Comment on above: Performed By: #### C BC ####[facility] Xpyzreervo6[address] [place] [phone]. Farhat Leal MANUAL DIFF REQ NO Normal The [facility] Comment on above: Performed By: #### C BC ####[facility] Rkdfpqlwwh5094 [place] [phone]. Farhat Leal MCH (RBC) [Entitic mass] 31.0 pg Normal 25.9-34.0 [facility] Comment on above: Performed By: #### C BC ####[facility] Injnfhckvq3938[address] [place], [place] [address]Dr. Farhat Leal MCHC (RBC) [Mass/Vol] 33.3 g/dL Normal 29.9-35.2 [facility] Comment on above: Performed By: #### C BC ####[facility] Blrxdnxaeq4147[address] [place], [place] [address]Dr. Farhat Leal MCV (RBC) [Entitic vol] 92.9 fL Normal 80.0-94.0 [facility] Comment on above: Performed By: #### C BC ####[facility] Cyedknyrkf5615[address] [place], [place] [address]Dr. Farhat Leal MONO # 0.7 103/ul Normal 0.3-0.8 [facility] Comment on above: Performed By: #### C BC ####[facility] Zkwoocnaza5[address] [place], [place] [address]Dr. Farhat Elvis Monocytes/100 WBC (Bld) 11.1 % Normal 1.7-12.0 [facility] Comment on above: Performed By: #### C BC ####[facility] Ejnihivzvg05[address] [place], [place] [address]Dr. Farhat Leal NEUT # 2.6 103/ul Normal 1.4-6.5 [facility] Comment on above: Performed By: #### C BC ####[facility] Npofqcuzcu1436[address] [place], [place] [address]Dr. Farhat Leal Neutrophils/100 WBC (Bld) 43.4 % Normal 43.0-75.0 [facility] Comment on above: Performed By: #### C BC ####[facility] Lggmwjblwo8817 [place] [phone]. Farhat Leal Platelet mean volume (Bld) [Entitic vol] 10.4 fL Normal 9.5-13.5 [facility] Comment on above: Performed By: #### C BC ####[facility] Atmmrdkiju8146 [place] [phone]. Farhat Leal PLT 211 103/ul Normal 150-450 [facility] Comment on above: Performed By: #### C BC ####[facility] Zeuuxnidph6887 [place] [phone]. Farhat Leal RBC 3.81 106/ul Critically low 4.70-6.10 [facility] Comment on above: Performed By: #### C BC ####[facility] Ajlsfjfozb0990 [place] [phone]. Farhat Leal WBC 6.0 103/ul Normal 4.0-11.0 [facility] Comment on above: Performed By: #### C BC ####[facility] Dhgqiocimk6934 [place] [address]Dr. Farhat Leal PROF 14(COMP METB)on 023 Albumin [Mass/Vol] 2.6 g/dL Critically low 3.4-5.[address] [facility] Comment on above: Performed By: #### C MP ####[facility] Icyrwevdno36[address] [place] [phone]. Farhat Leal Albumin/Globulin [Mass ratio] 0.8 {ratio} Normal [facility] Comment on above: Performed By: #### C MP ####[facility] Pzuyzeynej20[address] [place] [phone]. Farhat Leal ALP [Catalytic activity/Vol] 64 U/L Normal 46-116 [facility] Comment on above: Performed By: #### C MP ####[facility] Yfjghndric7[address] [place] [address]Dr. Farhat Leal ALT [Catalytic activity/Vol] 18 U/L Normal 16-63 [facility] Comment on above: Performed By: #### C MP ####[facility] Fotsilkhbw3[address] [place] [phone]. Farhat Leal Anion gap [Moles/Vol] 10.2 mmol/L Normal [facility] Comment on above: Performed By: #### C MP ####[facility] Knsdnpgmkz7322 [place] [phone]. Farhat Leal AST [Catalytic activity/Vol] 16 U/L Normal 15-37 [facility] Comment on above: Performed By: #### C MP ####[facility] Vmcbxhtapb9526 [place] [phone]. Farhat Leal Bilirubin [Mass/Vol] 0.6 mg/dL Normal 0.2-1.0 [facility] Comment on above: Performed By: #### C MP ####[facility] Onzezxrtut96[address] [place] [address]Dr. Farhat Leal Calcium [Mass/Vol] 8.5 mg/dL Normal 8.5-10.1 [facility] Comment on above: Performed By: #### C MP ####[facility] Qiyfzwdewt6744 [place] [phone]. Farhat Leal Chloride [Moles/Vol] 106 mmol/L Normal 98-107 [facility] Comment on above: Performed By: #### C MP ####[facility] Bmklneevnn8388 [place] [phone]. Farhat Leal CO2 [Moles/Vol] 29.8 mmol/L Normal 21.0-32.0 [facility] Comment on above: Performed By: #### C MP ####[facility] Bcdruqfwaz6514 [place] [phone]. Farhat Leal Creatinine [Mass/Vol] 1.60 mg/dL Critically high 0.70-1.30 [facility] Comment on above: Performed By: #### C MP ####[facility] Lcezvvtgqj4054 [place] [phone]. Farhat Leal EGFR-AF ICELANDIC 51 mL/min/1.73m2 Critically low >=60 [facility] Comment on above: Performed By: #### C MP ####[facility] Saimoigbkc[address] [place] [phone]. Farhat Leal EGFR-NON AF ICELANDIC 42 mL/min/1.73m2 Critically low >=60 [facility] Comment on above: Performed By: #### C MP ####[facility] Merpukfgxk4294 [place] [phone]. Farhat Leal Globulin (S) [Mass/Vol] 3.4 g/dL Normal [facility] Comment on above: Performed By: #### C MP ####[facility] Hbdujmrnka6764 [place] [phone]. Farhat Leal Glucose [Mass/Vol] 178 mg/dL Critically high 74-106 [facility] Comment on above: Performed By: #### C MP ####[facility] Qdkrjinfnx5383 [place] [phone]. Farhat Leal Potassium [Moles/Vol] 4.0 mmol/L Normal 3.5-5.1 [facility] Comment on above: Performed By: #### C MP ####[facility] Eafqvgfilb2181 [place] [phone]. Farhat Leal Protein [Mass/Vol] 6.0 g/dL Critically low 6.4-8.[address] [facility] Comment on above: Performed By: #### C MP ####[facility] Ssyxfokzmc6778 [place] [phone]. Farhat Leal Sodium [Moles/Vol] 142 mmol/L Normal 136-145 [facility] Comment on above: Performed By: #### C MP ####[facility] Rimlfxypcw1012 [place] [phone]. Farhat Leal Urea nitrogen [Mass/Vol] 49.0 mg/dL Critically high 7.0-18.0 [facility] Comment on above: Performed By: #### C MP ####[facility] Wrwbczcqqw5829 [place] [phone]. Farhat Leal Urea nitrogen/Creatinine [Mass ratio] 30.6 mg/mg Normal [facility] Comment on above: Performed By: #### C MP ####[facility] Uspyhcalgy[address] [place] [address]Dr. Farhat Leal PROTIMEon 06-26-2022 INR Coag (PPP) [Relative time] 1.77 {INR} Normal [facility] Comment on above: Performed By: #### P T ####[facility] Pdeosroqly4[address] [place], [place] [address]Dr. Farhat Leal INR GUIDELINES SEE BELOW Normal [facility] Comment on above: Result Comment: MALINA RED INR: 2.0 - 3.0 CONDITIONS NOT LISTED BELOW 2.5 - 3.5 FOR PROSTHETIC HEART VALVE REPLACEMENT 2.5 - 3.5 RECURRENT THROMBOSIS Performed By: #### P T ####[facility] Kxyjxucfju05[address] [place], [place] [address]Dr. Farhat Leal PT Coag (PPP) [Time] 18.2 s Critically high 9.0-11.6 [facility] Comment on above: Performed By: #### P T ####[facility] Fugurvdpwk9526[address] [place], [place] [address]DrSkylar Leal FK506 (TACROLIMUS) WHOLE BLO ODon 06-22-2022 Tacrolimus (FK506), Blood 24.5 ng/mL Invalid Interpretation Code 2.0-20.0 [facility] Comment on above: Result Comment: Trou gh (immediately following transplant) 15.0 . Trough (steady state, 2 weeks or more after transplant): 3.0 - 8.0 . Performed by LC-MS/MS technology.Patient drug level exceeds published reference range. Evaluateclinically for signs of potential toxicity. Performed By: #### F K506T ####[facility] Eebuysaftx7132[address] [place], [place] [address]DrSkylar Leal CBC AUTO DIFFon 06-19-2022 BASO # 0.1 103/ul Normal 0.0-0.1 [facility] Comment on above: Performed By: #### C BC ####[facility] Jwlmoourvz9510 [place] [address]DrSkylar Leal Basophils/100 WBC (Bld) 0.7 % Normal 0.2-2.0 [facility] Comment on above: Performed By: #### C BC ####[facility] Udyofojwgp6054 [place] [phone]. Farhat Leal EO # 0.4 103/ul Normal 0.0-0.7 [facility] Comment on above: Performed By: #### C BC ####[facility] Lknvysklbo5290 [place] [phone]. Farhat Leal Eosinophils/100 WBC (Bld) 5.7 % Normal 0.9-7.0 [facility] Comment on above: Performed By: #### C BC ####[facility] Xvlmzungad0743[address] [place], [place] [address]Dr. Farhat Leal Erythrocyte distribution width (RBC) [Ratio] 14.5 % Normal 11.0-15.0 [facility] Comment on above: Performed By: #### C BC ####[facility] Mopddzehyt7[address] [place], [place] [address]Dr. Farhat Leal Hematocrit (Bld) [Volume fraction] 34.1 % Critically low 42.0-54.0 [facility] Comment on above: Performed By: #### C BC ####[facility] Wnawmoxrnq2264 [place] [address]Dr. Farhat Leal Hemoglobin (Bld) [Mass/Vol] 11.3 g/dL Critically low 14.0-18.0 [facility] Comment on above: Performed By: #### C BC ####[facility] Lvblwzxnyu034[address] [place], [place] [address]Dr. Farhat Leal IG # 0.02 10e3/ul Normal 0.00-0.03 [facility] Comment on above: Performed By: #### C BC ####[facility] Mhxxzwexvv7802 [place] [address]Dr. Farhat Leal IG % 0.3 % Normal 0.0-0.5 [facility] Comment on above: Performed By: #### C BC ####[facility] Ymynawjkob5[address] [place], [place] [address]Dr. Farhat Leal LYMPH # 3.1 103/ul Normal 1.2-3.8 [facility] Comment on above: Performed By: #### C BC ####[facility] Zhkinjwmad7566 [place] [phone]. Farhat Leal Lymphocytes/100 WBC (Bld) 40.6 % Normal 20.5-60.0 [facility] Comment on above: Performed By: #### C BC ####[facility] Cyydnzexsj3474 [place] [phone]. Farhat Elvis MANUAL DIFF REQ NO Normal The [facility] Comment on above: Performed By: #### C BC ####[facility] Vaonwvtnng1399 [place] [phone]. Farhat Elvis MCH (RBC) [Entitic mass] 30.6 pg Normal 25.9-34.0 [facility] Comment on above: Performed By: #### C BC ####[facility] Csjqcelzhw66[address] [place], [place] [address]Dr. Farhat Elvis MCHC (RBC) [Mass/Vol] 33.1 g/dL Normal 29.9-35.2 [facility] Comment on above: Performed By: #### C BC ####[facility] Wnwxiwjauz6567 [place] [phone]. Farhat Elvis MCV (RBC) [Entitic vol] 92.4 fL Normal 80.0-94.0 [facility] Comment on above: Performed By: #### C BC ####[facility] Kiudlpinmg6390 [place] [address]Dr. Madelynlorri Elvis MONO # 0.8 103/ul Normal 0.3-0.8 [facility] Comment on above: Performed By: #### C BC ####[facility] Zjxdheqiqq5627 [place] [phone]. Madelynlorri Leal Monocytes/100 WBC (Bld) 10.6 % Normal 1.7-12.0 [facility] Comment on above: Performed By: #### C BC ####[facility] Wvmlxdxufu25[address] [place], [place] [address]Dr. Farhat Leal NEUT # 3.2 103/ul Normal 1.4-6.5 [facility] Comment on above: Performed By: #### C BC ####[facility] Quhnhvtcty9201 [place] [phone]. Farhat Leal Neutrophils/100 WBC (Bld) 42.1 % Critically low 43.0-75.0 [facility] Comment on above: Performed By: #### C BC ####[facility] Tkgojymnyx9934 [place] [phone]. Farhat Leal Platelet mean volume (Bld) [Entitic vol] 10.6 fL Normal 9.5-13.5 [facility] Comment on above: Performed By: #### C BC ####[facility] Ntsqpabvqq3845 [place] [phone]. Farhat Leal PLT 187 103/ul Normal 150-450 [facility] Comment on above: Performed By: #### C BC ####[facility] Nhzoijfpkf2340 [place] [phone]. Farhat Leal RBC 3.69 106/ul Critically low 4.70-6.10 [facility] Comment on above: Performed By: #### C BC ####[facility] Nldsohjgwr6405 [place] [phone]. Farhat Leal WBC 7.7 103/ul Normal 4.0-11.0 [facility] Comment on above: Performed By: #### C BC ####[facility] Crnqagkdpp2420 [place] [address]Dr. Farhat Leal PROF 14(COMP METB)on 023 Albumin [Mass/Vol] 2.5 g/dL Critically low 3.4-5.0 [facility] Comment on above: Performed By: #### C MP ####[facility] Uyubsnsmto4758 [place] [address]Dr. Farhat Leal Albumin/Globulin [Mass ratio] 0.8 {ratio} Normal [facility] Comment on above: Performed By: #### C MP ####[facility] Etepeqptpe8139 [place] [phone]. Madelynlorri Elvis ALP [Catalytic activity/Vol] 60 U/L Normal 46-116 [facility] Comment on above: Performed By: #### C MP ####[facility] Qbmviwnmdt0695 [place] [phone]. Farhat Leal ALT [Catalytic activity/Vol] 16 U/L Normal 16-63 [facility] Comment on above: Performed By: #### C MP ####[facility] Qksctiuwnd0050 [place] [phone]. Farhat Leal Anion gap [Moles/Vol] 9.1 mmol/L Normal [facility] Comment on above: Performed By: #### C MP ####[facility] Aklvvwalls9854 [place] [phone]. Farhat Leal AST [Catalytic activity/Vol] 31 U/L Normal 15-37 [facility] Comment on above: Performed By: #### C MP ####[facility] Skldtnkcuo3025 [place] [address]Dr. Farhat Leal Bilirubin [Mass/Vol] 0.3 mg/dL Normal 0.2-1.0 [facility] Comment on above: Performed By: #### C MP ####[facility] Zvjalqdbhm2703 [place] [phone]. Farhat Leal Calcium [Mass/Vol] 8.2 mg/dL Critically low 8.5-10.[address] [facility] Comment on above: Performed By: #### C MP ####[facility] Jsdrackius[address] [place], [place] [address]Dr. Farhat Leal Chloride [Moles/Vol] 106 mmol/L Normal 98-107 [facility] Comment on above: Performed By: #### C MP ####[facility] Uwgldweuqt8514 [place] [phone]. Farhat Leal CO2 [Moles/Vol] 27.0 mmol/L Normal 21.0-32.0 [facility] Comment on above: Performed By: #### C MP ####[facility] Guyphpthad6220 [place] [phone]. Farhat Leal Creatinine [Mass/Vol] 1.51 mg/dL Critically high 0.70-1.30 [facility] Comment on above: Performed By: #### C MP ####[facility] Fdyknablpl3712 [place], [place] [address]Cu. Farhat Leal EGFR-AF ICELANDIC 55 mL/min/1.73m2 Critically low >=60 [facility] Comment on above: Performed By: #### C MP ####[facility] Nqkxvaybyc9833 [place] [phone]. Farhat Leal EGFR-NON AF ICELANDIC 45 mL/min/1.73m2 Critically low >=60 [facility] Comment on above: Performed By: #### C MP ####[facility] Alrxfewlve0419 [place] [phone]. Farhat Leal Globulin (S) [Mass/Vol] 3.2 g/dL Normal [facility] Comment on above: Performed By: #### C MP ####[facility] Rinpooptvk3273 [place] [phone]. Farhat Leal Glucose [Mass/Vol] 165 mg/dL Critically high 74-106 [facility] Comment on above: Performed By: #### C MP ####[facility] Vbweqetitc3792 [place] [phone]. Farhat Leal Potassium [Moles/Vol] 4.1 mmol/L Normal 3.5-5.1 [facility] Comment on above: Performed By: #### C MP ####[facility] Pvaktvpapa5623 [place] [phone]. Farhat Leal Protein [Mass/Vol] 5.7 g/dL Critically low 6.4-8.[address] [facility] Comment on above: Performed By: #### C MP ####[facility] Pvarzcivow1672 [place] [phone]. Farhat Leal Sodium [Moles/Vol] 138 mmol/L Normal 136-145 [facility] Comment on above: Performed By: #### C MP ####[facility] Uarwepplti6979 [place] [phone]. Farhat Leal Urea nitrogen [Mass/Vol] 51.0 mg/dL Critically high 7.0-18.0 [facility] Comment on above: Performed By: #### C MP ####[facility] Bqiukemobv5[address] [place], [place] [address]Dr. Farhat Leal Urea nitrogen/Creatinine [Mass ratio] 33.8 mg/mg Normal [facility] Comment on above: Performed By: #### C MP ####[facility] Vqrxjwcyhx01[address] [place], [place] [address]DrSkylar Leal FK506 (TACROLIMUS) WHOLE BLO ODon 06-15-2022 Tacrolimus (FK506), Blood 16.4 ng/mL Normal 2.0-20.0 [facility] Comment on above: Result Comment: Trou gh (immediately following transplant) 15.0 . Trough (steady state, 2 weeks or more after transplant): 3.0 - 8.0 . Performed by LC-MS/MS technology. Performed By: #### F K506T ####[facility] Obktscxogf2[address] [place], [place] [address]DrSkylar Leal PROTIMEon 06-15-2022 INR Coag (PPP) [Relative time] 1.64 {INR} Normal [facility] Comment on above: Performed By: #### P T ####[facility] Heilhwsobu6[address] [place], [place] [address]DrSkylar Leal INR GUIDELINES SEE BELOW Normal [facility] Comment on above: Result Comment: MALINA RED INR: 2.0 - 3.0 CONDITIONS NOT LISTED BELOW 2.5 - 3.5 FOR PROSTHETIC HEART VALVE REPLACEMENT 2.5 - 3.5 RECURRENT THROMBOSIS Performed By: #### P T ####[facility] Nnjkevgoec06[address] [place], [place] [address]DrSkylar Leal PT Coag (PPP) [Time] 16.9 s Critically high 9.0-11.6 [facility] Comment on above: Performed By: #### P T ####[facility] Dobzmuxrek14[address] [place], [place] [address]DrSkylar Leal CBC AUTO DIFFon 06-12-2022 BASO # 0.0 103/ul Normal 0.0-0.1 [facility] Comment on above: Performed By: #### C BC ####[facility] Feyigllcee9[address] [place], [place] [address]DrSkylar Leal Basophils/100 WBC (Bld) 0.4 % Normal 0.2-2.0 [facility] Comment on above: Performed By: #### C BC ####[facility] Bmyqxfjbvd9316[address] [place], [place] [address]Dr. Farhat Leal EO # 0.4 103/ul Normal 0.0-0.7 [facility] Comment on above: Performed By: #### C BC ####[facility] Hohlpuytcg85[address] [place], [place] [address]Dr. Farhat Leal Eosinophils/100 WBC (Bld) 5.4 % Normal 0.9-7.0 [facility] Comment on above: Performed By: #### C BC ####[facility] Mkzmqtfdxf82[address] [place], [place] [address]Dr. Farhat Leal Erythrocyte distribution width (RBC) [Ratio] 14.7 % Normal 11.0-15.0 [facility] Comment on above: Performed By: #### C BC ####[facility] Jnynybjugk[address] [place], [place] [address]Dr. Farhat Leal Hematocrit (Bld) [Volume fraction] 34.8 % Critically low 42.0-54.0 [facility] Comment on above: Performed By: #### C BC ####[facility] Othkkmurgf[address] [place], [place] [address]Dr. Farhat Leal Hemoglobin (Bld) [Mass/Vol] 11.7 g/dL Critically low 14.0-18.0 [facility] Comment on above: Performed By: #### C BC ####[facility] Chmjxcgwvf8[address] [place], [place] [address]Dr. Farhat Leal IG # 0.02 10e3/ul Normal 0.00-0.03 [facility] Comment on above: Performed By: #### C BC ####[facility] Krwcuxxhox[address] [place], [place] [address]Dr. Farhat Leal IG % 0.3 % Normal 0.0-0.5 [facility] Comment on above: Performed By: #### C BC ####[facility] C[address] [place] [address]Sr. Farhat Elvis LYMPH # 2.5 103/ul Normal 1.2-3.8 [facility] Comment on above: Performed By: #### C BC ####[facility] Pxiaefncjx4[address] [place] [phone]. Madelynlorri Leal Lymphocytes/100 WBC (Bld) 36.8 % Normal 20.5-60.0 [facility] Comment on above: Performed By: #### C BC ####[facility] Fxvtouajix4235 [place] [address]Dr. Madelynlorri Leal MANUAL DIFF REQ NO Normal The [facility] Comment on above: Performed By: #### C BC ####[facility] Yrljsuvfnl2944 [place] [address]Dr. Farhat Elvis MCH (RBC) [Entitic mass] 30.9 pg Normal 25.9-34.0 [facility] Comment on above: Performed By: #### C BC ####[facility] Hpgeepuuid0637[address] [place], [place] [address]Dr. Farhat Elvis MCHC (RBC) [Mass/Vol] 33.6 g/dL Normal 29.9-35.2 [facility] Comment on above: Performed By: #### C BC ####[facility] Pgppzfgfit[address] [place], [place] [address]Dr. Farhat Leal MCV (RBC) [Entitic vol] 91.8 fL Normal 80.0-94.0 [facility] Comment on above: Performed By: #### C BC ####[facility] Emndfzhuet8679 [place] [address]Dr. Farhat Leal MONO # 0.8 103/ul Normal 0.3-0.8 [facility] Comment on above: Performed By: #### C BC ####[facility] Yrhqqnzyzo9[address] [place], [place] [address]Dr. Farhat Leal Monocytes/100 WBC (Bld) 11.9 % Normal 1.7-12.0 [facility] Comment on above: Performed By: #### C BC ####[facility] Jvbtnygvdd6[address] [place], [place] [address]Dr. Farhat Leal NEUT # 3.1 103/ul Normal 1.4-6.5 [facility] Comment on above: Performed By: #### C BC ####[facility] Xgqonlcwln6770 [place] [address]Dr. Farhat Leal Neutrophils/100 WBC (Bld) 45.2 % Normal 43.0-75.0 [facility] Comment on above: Performed By: #### C BC ####[facility] Ofrboypfcj6284 [place] [address]Dr. Farhat Leal Platelet mean volume (Bld) [Entitic vol] 10.5 fL Normal 9.5-13.5 [facility] Comment on above: Performed By: #### C BC ####[facility] Mpysflmzsd3625 [place] [address]Dr. Farhat Leal PLT 175 103/ul Normal 150-450 [facility] Comment on above: Performed By: #### C BC ####[facility] Qpwjtnqafg9[address] [place], [place] [address]Dr. Faraht Leal RBC 3.79 106/ul Critically low 4.70-6.10 The [facility] Comment on above: Performed By: #### C BC ####[facility] Tvaftykkvk1082 [place] [address]Dr. Farhat Leal WBC 6.8 103/ul Normal 4.0-11.0 [facility] Comment on above: Performed By: #### C BC ####[facility] Thykxwwxni2793 [place] [address]Dr. Farhat Leal MAGNESIUMon 06-12-2022 Magnesium [Mass/Vol] 1.6 mg/dL Critically low 1.8-2.4 [facility] Comment on above: Performed By: #### C MP, MG, PHOS ####[facility] Aaecvjvggs4795 [place] [address]Dr. Farhat Leal PHOSPHORUSon 06-12-2022 Phosphate [Mass/Vol] 3.8 mg/dL Normal 2.6-4.7 [facility] Comment on above: Performed By: #### C MP, MG, PHOS ####[facility] Vebiswybop8994 [place] [address]Dr. Farhat Leal PROF 14(COMP METB)on 023 Albumin [Mass/Vol] 2.6 g/dL Critically low 3.4-5.0 [facility] Comment on above: Performed By: #### C MP, MG, PHOS ####[facility] Leqnmfpvcp8600 [place] [address]Dr. Farhat Leal Albumin/Globulin [Mass ratio] 0.8 {ratio} Normal [facility] Comment on above: Performed By: #### C MP, MG, PHOS ####[facility] Jgblerwkdh12[address] [place], [place] [address]Dr. Farhat Leal ALP [Catalytic activity/Vol] 64 U/L Normal 46-116 [facility] Comment on above: Performed By: #### C MP, MG, PHOS ####[facility] Jzctbyzwrq[address] [place], [place] [address]Dr. Farhat Leal ALT [Catalytic activity/Vol] 18 U/L Normal 16-63 [facility] Comment on above: Performed By: #### C MP, MG, PHOS ####[facility] Hagminyogi[address] [place], [place] [address]Dr. Farhat Leal Anion gap [Moles/Vol] 12.9 mmol/L Normal [facility] Comment on above: Performed By: #### C MP, MG, PHOS ####[facility] Qktjytclwz8[address] [place], [place] [address]Dr. Farhat Leal AST [Catalytic activity/Vol] 18 U/L Normal 15-37 [facility] Comment on above: Performed By: #### C MP, MG, PHOS ####[facility] Jigrsqcwjm3463[address] [place], [place] [address]Dr. Farhat Leal Bilirubin [Mass/Vol] 0.4 mg/dL Normal 0.2-1.0 [facility] Comment on above: Performed By: #### C MP, MG, PHOS ####[facility] Pfsrmpxcgb6[address] [place], [place] [address]Dr. Farhat Leal Calcium [Mass/Vol] 8.7 mg/dL Normal 8.5-10.1 [facility] Comment on above: Performed By: #### C MP, MG, PHOS ####[facility] Hqkayaicpo2771 [place] [address]Dr. Farhat Leal Chloride [Moles/Vol] 105 mmol/L Normal 98-107 [facility] Comment on above: Performed By: #### C MP, MG, PHOS ####[facility] Gyajbqnsvf7560 [place] [address]Dr. Farhat Leal CO2 [Moles/Vol] 27.9 mmol/L Normal 21.0-32.0 [facility] Comment on above: Performed By: #### C MP, MG, PHOS ####[facility] Ayyfzolyvo28[address] [place], [place] [address]Dr. Farhat Leal Creatinine [Mass/Vol] 1.53 mg/dL Critically high 0.70-1.30 [facility] Comment on above: Performed By: #### C MP, MG, PHOS ####[facility] Ibdowjdktb2192[address] [place], [place] [address]Dr. Farhat Leal EGFR-AF ICELANDIC 54 mL/min/1.73m2 Critically low >=60 [facility] Comment on above: Performed By: #### C MP, MG, PHOS ####[facility] Yfyfrntyix2542[address] [place], [place] [address]Dr. Farhat Leal EGFR-NON AF ICELANDIC 44 mL/min/1.73m2 Critically low >=60 [facility] Comment on above: Performed By: #### C MP, MG, PHOS ####[facility] Lefaruipvr9420 [place] [address]Dr. Farhat Leal Globulin (S) [Mass/Vol] 3.4 g/dL Normal [facility] Comment on above: Performed By: #### C MP, MG, PHOS ####[facility] Bjaungqfjy0454 [place] [address]Dr. Farhat Leal Glucose [Mass/Vol] 179 mg/dL Critically high 74-106 [facility] Comment on above: Performed By: #### C MP, MG, PHOS ####[facility] Zanaunagsx9681 [place] [address]Dr. Farhat Leal Potassium [Moles/Vol] 3.8 mmol/L Normal 3.5-5.1 [facility] Comment on above: Performed By: #### C MP, MG, PHOS ####[facility] Nhqrnhslhk6408 [place] [address]Dr. Farhat Leal Protein [Mass/Vol] 6.0 g/dL Critically low 6.4-8.[address] [facility] Comment on above: Performed By: #### C MP, MG, PHOS ####[facility] Xonkaglbfp97[address] [place], [place] [address]Dr. Farhat Leal Sodium [Moles/Vol] 142 mmol/L Normal 136-145 [facility] Comment on above: Performed By: #### C MP, MG, PHOS ####[facility] Hhwsbwhnff64[address] [place], [place] [address]Dr. Farhat Leal Urea nitrogen [Mass/Vol] 56.0 mg/dL Critically high 7.0-18.0 [facility] Comment on above: Performed By: #### C MP, MG, PHOS ####[facility] Pydhnxsulv4[address] [place], [place] [address]Dr. Farhat Leal Urea nitrogen/Creatinine [Mass ratio] 36.6 mg/mg Normal [facility] Comment on above: Performed By: #### C MP, MG, PHOS ####[facility] Aidvchacjk7927[address] [place], [place] [address]Dr. Farhat Leal FK506 (TACROLIMUS) WHOLE BLO ODon 06-08-2022 Tacrolimus (FK506), Blood 13.2 ng/mL Normal 2.0-20.0 [facility] Comment on above: Result Comment: Trou gh (immediately following transplant) 15.0 . Trough (steady state, 2 weeks or more after transplant): 3.0 - 8.0 . Performed by LC-MS/MS technology. Performed By: #### F K506T ####[facility] Jejmuduiqs[address] [place], [place] [address]Dr. Farhat Leal CBC AUTO DIFFon 06-05-2022 BASO # 0.1 103/ul Normal 0.0-0.1 [facility] Comment on above: Performed By: #### C BC ####[facility] Scxtaqrwku2048 [place] [address]Dr. Farhat Leal Basophils/100 WBC (Bld) 0.8 % Normal 0.2-2.0 [facility] Comment on above: Performed By: #### C BC ####[facility] Pqynavpafc9885 [place] [address]Dr. Farhat Leal EO # 0.3 103/ul Normal 0.0-0.7 [facility] Comment on above: Performed By: #### C BC ####[facility] Wuhtdanhzi5506 [place] [address]Dr. Farhat Leal Eosinophils/100 WBC (Bld) 4.7 % Normal 0.9-7.0 [facility] Comment on above: Performed By: #### C BC ####[facility] Sfyvfyxvmh4822 [place] [address]Dr. Farhat Leal Erythrocyte distribution width (RBC) [Ratio] 15.1 % Critically high 11.0-15.0 [facility] Comment on above: Performed By: #### C BC ####[facility] Vtdgdgtyom3082 [place] [address]Dr. Faraht Leal Hematocrit (Bld) [Volume fraction] 35.5 % Critically low 42.0-54.0 [facility] Comment on above: Performed By: #### C BC ####[facility] Fxvqctefko9282 [place] [address]Dr. Farhat Leal Hemoglobin (Bld) [Mass/Vol] 11.7 g/dL Critically low 14.0-18.0 [facility] Comment on above: Performed By: #### C BC ####[facility] Ergelnobpz7649 [place] [address]Dr. Farhat Elvis IG # 0.01 10e3/ul Normal 0.00-0.03 [facility] Comment on above: Performed By: #### C BC ####[facility] Jcbgdqxsqf9333 [place] [phone]. Farhat Leal IG % 0.2 % Normal 0.0-0.5 [facility] Comment on above: Performed By: #### C BC ####[facility] Nehuqftbet7431 [place] [phone]. Farhat Leal LYMPH # 2.1 103/ul Normal 1.2-3.8 [facility] Comment on above: Performed By: #### C BC ####[facility] Dkbxrhsskn9306 [place] [phone]. Farhat Elvis Lymphocytes/100 WBC (Bld) 34.5 % Normal 20.5-60.0 [facility] Comment on above: Performed By: #### C BC ####[facility] Ohdvsuyksr7243 [place] [phone]. Farhat Elvis MANUAL DIFF REQ NO Normal The [facility] Comment on above: Performed By: #### C BC ####[facility] Hnyxcetfng9155 [place] [phone]. Farhat Leal MCH (RBC) [Entitic mass] 30.6 pg Normal 25.9-34.0 [facility] Comment on above: Performed By: #### C BC ####[facility] Pvwwwaevke2055 [place] [phone]. Farhat Leal MCHC (RBC) [Mass/Vol] 33.0 g/dL Normal 29.9-35.2 [facility] Comment on above: Performed By: #### C BC ####[facility] Irnhytkzxa0599 [place] [phone]. Farhat Leal MCV (RBC) [Entitic vol] 92.9 fL Normal 80.0-94.0 [facility] Comment on above: Performed By: #### C BC ####[facility] Kdlskikgzl2682 [place] [phone]. Farhat Elvis MONO # 0.7 103/ul Normal 0.3-0.8 [facility] Comment on above: Performed By: #### C BC ####[facility] Cjwxotshmk7691 [place] [phone]. Farhat Leal Monocytes/100 WBC (Bld) 11.4 % Normal 1.7-12.0 [facility] Comment on above: Performed By: #### C BC ####[facility] Wzhbvelafe2438 [place] [phone]. Farhat Leal NEUT # 2.9 103/ul Normal 1.4-6.5 [facility] Comment on above: Performed By: #### C BC ####[facility] Psshetiebc4219 [place] [phone]. Farhat Leal Neutrophils/100 WBC (Bld) 48.4 % Normal 43.0-75.0 [facility] Comment on above: Performed By: #### C BC ####[facility] Qwqhqpvsip5526 [place] [phone]. Farhat Leal Platelet mean volume (Bld) [Entitic vol] 10.7 fL Normal 9.5-13.5 [facility] Comment on above: Performed By: #### C BC ####[facility] Bbmxksottq0534 [place] [phone]. Farhat Leal PLT 185 103/ul Normal 150-450 [facility] Comment on above: Performed By: #### C BC ####[facility] Yoyfwrocwx3461 [place] [phone]. Farhat Leal RBC 3.82 106/ul Critically low 4.70-6.10 The [facility] Comment on above: Performed By: #### C BC ####[facility] Nauluxfxoh6338 [place] [phone]. Farhat Leal WBC 6.0 103/ul Normal 4.0-11.0 [facility] Comment on above: Performed By: #### C BC ####[facility] Jkawmyopxu5714 [place] [phone]. Farhat Leal MAGNESIUMon 06-05-2022 Magnesium [Mass/Vol] 1.9 mg/dL Normal 1.8-2.4 [facility] Comment on above: Performed By: #### P HOS, MG ####[facility] Knjhcuevra8137 [place] [phone]. Madelynlorri Leal PHOSPHORUSon 06-05-2022 Phosphate [Mass/Vol] 4.4 mg/dL Normal 2.6-4.7 [facility] Comment on above: Performed By: #### P HOS, MG ####[facility] Lqwfsysdth0761 [place] [address]Dr. Farhat Leal PROTIMEon 06-05-2022 INR Coag (PPP) [Relative time] 2.16 {INR} Normal [facility] Comment on above: Performed By: #### P T ####[facility] Esoyrsohmd9282 [place] [address]Dr. Farhat Leal INR GUIDELINES SEE BELOW Normal The [facility] Comment on above: Result Comment: MALINA RED INR: 2.0 - 3.0 CONDITIONS NOT LISTED BELOW 2.5 - 3.5 FOR PROSTHETIC HEART VALVE REPLACEMENT 2.5 - 3.5 RECURRENT THROMBOSIS Performed By: #### P T ####[facility] Uppczsqezj7[address] [place], [place] [address]Dr. Farhat Leal PT Coag (PPP) [Time] 21.9 s Critically high 9.0-11.6 [facility] Comment on above: Performed By: #### P T ####[facility] Ewiedenhgf[address] [place], [place] [address]Dr. Farhat Leal FK506 (TACROLIMUS) WHOLE BLO ODon 06-01-2022 Tacrolimus (FK506), Blood 26.4 ng/mL Invalid Interpretation Code 2.0-20.0 [facility] Comment on above: Result Comment: Trou gh (immediately following transplant) 15.0 . Trough (steady state, 2 weeks or more after transplant): 3.0 - 8.0 . Performed by LC-MS/MS technology.Patient drug level exceeds published reference range. Evaluateclinically for signs of potential toxicity. Performed By: #### F K506T ####[facility] Gdvtmeipxy1641 [place] [address]DrSkylar Leal CBC AUTO DIFFon 05-29-2022 BASO # 0.0 103/ul Normal 0.0-0.1 [facility] Comment on above: Performed By: #### C BC ####[facility] Fmhacwlbad6988 [place] [phone]. Farhat Leal Basophils/100 WBC (Bld) 0.6 % Normal 0.2-2.0 [facility] Comment on above: Performed By: #### C BC ####[facility] Dxttijzfnc6[address] [place], [place] [address]Dr. Farhat Leal EO # 0.3 103/ul Normal 0.0-0.7 [facility] Comment on above: Performed By: #### C BC ####[facility] Jjggejtbay00[address] [place], [place] [address]Dr. Farhat Leal Eosinophils/100 WBC (Bld) 4.7 % Normal 0.9-7.0 [facility] Comment on above: Performed By: #### C BC ####[facility] Brcfyjcrny29[address] [place], [place] [address]Dr. Farhat Leal Erythrocyte distribution width (RBC) [Ratio] 15.3 % Critically high 11.0-15.0 [facility] Comment on above: Performed By: #### C BC ####[facility] Nqykeuqbjy[address] [place], [place] [address]Dr. Farhat Leal Hematocrit (Bld) [Volume fraction] 36.6 % Critically low 42.0-54.0 [facility] Comment on above: Performed By: #### C BC ####[facility] Izlcqgculj35[address] [place], [place] [address]Dr. Farhat Leal Hemoglobin (Bld) [Mass/Vol] 12.3 g/dL Critically low 14.0-18.0 [facility] Comment on above: Performed By: #### C BC ####[facility] Mjhjskyyou[address] [place], [place] [address]Dr. Farhat Leal IG # 0.02 10e3/ul Normal 0.00-0.03 [facility] Comment on above: Performed By: #### C BC ####[facility] [address]auwjjvasa[address] [place], [place] [address]Dr. Farhat Leal IG % 0.3 % Normal 0.0-0.5 [facility] Comment on above: Performed By: #### C BC ####[facility] Sicjexvooj7923 [place] [phone]. Farhat Elvis LYMPH # 2.8 103/ul Normal 1.2-3.8 [facility] Comment on above: Performed By: #### C BC ####[facility] Fndamhmyku4847 [place] [phone]. Farhat Leal Lymphocytes/100 WBC (Bld) 44.4 % Normal 20.5-60.0 [facility] Comment on above: Performed By: #### C BC ####[facility] Kgkfjsprdf6955 [place] [address]Dr. Farhat Leal MANUAL DIFF REQ NO Normal [facility] Comment on above: Performed By: #### C BC ####[facility] Oulaloakgo6921 [place] [phone]. Farhat Leal MCH (RBC) [Entitic mass] 30.4 pg Normal 25.9-34.0 [facility] Comment on above: Performed By: #### C BC ####[facility] Gpzkvkbfgk3162 [place] [phone]. Madelynlorri Leal MCHC (RBC) [Mass/Vol] 33.6 g/dL Normal 29.9-35.2 [facility] Comment on above: Performed By: #### C BC ####[facility] Pvmtlymwwo1498 [place] [phone]. Farhat Leal MCV (RBC) [Entitic vol] 90.4 fL Normal 80.0-94.0 [facility] Comment on above: Performed By: #### C BC ####[facility] Pbbbiicplq4997 [place] [phone]. Farhat Leal MONO # 0.7 103/ul Normal 0.3-0.8 [facility] Comment on above: Performed By: #### C BC ####[facility] Obfaakjonn8910 [place] [phone]. Farhat Leal Monocytes/100 WBC (Bld) 10.7 % Normal 1.7-12.0 [facility] Comment on above: Performed By: #### C BC ####[facility] Iztqqlvhnz6492 [place] [phone]. Farhat Leal NEUT # 2.5 103/ul Normal 1.4-6.5 [facility] Comment on above: Performed By: #### C BC ####[facility] Qaafjqjqrf7235 [place] [phone]. Farhat Leal Neutrophils/100 WBC (Bld) 39.3 % Critically low 43.0-75.0 [facility] Comment on above: Performed By: #### C BC ####[facility] Tvxuegrawn6556 [place] [phone]. Farhat Leal Platelet mean volume (Bld) [Entitic vol] 10.5 fL Normal 9.5-13.5 [facility] Comment on above: Performed By: #### C BC ####[facility] Qhpprcgokh3970 [place] [phone]. Farhat Leal PLT 190 103/ul Normal 150-450 [facility] Comment on above: Performed By: #### C BC ####[facility] Ywxfbxrwsp3059 [place] [phone]. Farhat Leal RBC 4.05 106/ul Critically low 4.70-6.10 The [facility] Comment on above: Performed By: #### C BC ####[facility] Qhgipjwpnk9807 [place] [phone]. Farhat Leal WBC 6.4 103/ul Normal 4.0-11.0 [facility] Comment on above: Performed By: #### C BC ####[facility] Qnixqoqxau7361 [place] [phone] Leal PROF 14(COMP METB)on 023 Albumin [Mass/Vol] 2.5 g/dL Critically low 3.4-5.[address] [facility] Comment on above: Performed By: #### C MP ####[facility] Ayyryfjnen0528 [place] [phone] Leal Albumin/Globulin [Mass ratio] 0.8 {ratio} Normal [facility] Comment on above: Performed By: #### C MP ####[facility] Rhoalamwfs5070 [place] [address]Dr. Farhat Leal ALP [Catalytic activity/Vol] 61 U/L Normal 46-116 [facility] Comment on above: Performed By: #### C MP ####[facility] Twmjekniku3907 [place] [address]Dr. Farhat Elvis ALT [Catalytic activity/Vol] 16 U/L Normal 16-63 [facility] Comment on above: Performed By: #### C MP ####[facility] Mkdnlxioew5470 [place] [address]Dr. Farhat Elvis Anion gap [Moles/Vol] 12.3 mmol/L Normal [facility] Comment on above: Performed By: #### C MP ####[facility] Lkgfqdllzf[address] [place], [place] [address]Dr. Farhat Elvis AST [Catalytic activity/Vol] 18 U/L Normal 15-37 [facility] Comment on above: Performed By: #### C MP ####[facility] Kbqmdpqxth[address] [place], [place] [address]Dr. Farhat Elvis Bilirubin [Mass/Vol] 0.5 mg/dL Normal 0.2-1.0 [facility] Comment on above: Performed By: #### C MP ####[facility] Qzfytfibbk[address] [place], [place] [address]Dr. Farhat Elvis Calcium [Mass/Vol] 8.6 mg/dL Normal 8.5-10.1 [facility] Comment on above: Performed By: #### C MP ####[facility] Mnseqjerkm3395 [place] [address]Dr. Farhat Leal Chloride [Moles/Vol] 105 mmol/L Normal 98-107 [facility] Comment on above: Performed By: #### C MP ####[facility] Kimfzixmbt6304 [place] [address]Dr. Farhat Leal CO2 [Moles/Vol] 28.6 mmol/L Normal 21.0-32.0 [facility] Comment on above: Performed By: #### C MP ####[facility] Yahmtnjemu6813 [place] [phone]. Farhat Leal Creatinine [Mass/Vol] 1.47 mg/dL Critically high 0.70-1.30 [facility] Comment on above: Performed By: #### C MP ####[facility] Ilkexivsgy8892 [place] [phone]. Farhat Leal EGFR-AF ICELANDIC 56 mL/min/1.73m2 Critically low >=60 [facility] Comment on above: Performed By: #### C MP ####[facility] Ljkxcxmgza1356 [place] [phone]. Farhat Elvis EGFR-NON AF ICELANDIC 46 mL/min/1.73m2 Critically low >=60 [facility] Comment on above: Performed By: #### C MP ####[facility] Mtmmhwgadu3683 [place] [address]Dr. Farhat Elvis Globulin (S) [Mass/Vol] 3.3 g/dL Normal [facility] Comment on above: Performed By: #### C MP ####[facility] Nkrsuqisqu0669 [place] [address]Dr. Farhat Leal Glucose [Mass/Vol] 164 mg/dL Critically high 74-106 [facility] Comment on above: Performed By: #### C MP ####[facility] Ytalwuxymb8305 [place] [address]Dr. Farhat Elvis Potassium [Moles/Vol] 3.9 mmol/L Normal 3.5-5.1 [facility] Comment on above: Performed By: #### C MP ####[facility] Swmitnpgoi8283 [place] [address]Dr. Farhat Leal Protein [Mass/Vol] 5.8 g/dL Critically low 6.4-8.[address] [facility] Comment on above: Performed By: #### C MP ####[facility] Ozchqjsojy6847 [place] [address]Dr. Farhat Elvis Sodium [Moles/Vol] 142 mmol/L Normal 136-145 [facility] Comment on above: Performed By: #### C MP ####[facility] Becpyksgmy2334 [place] [address]Dr. Farhat Leal Urea nitrogen [Mass/Vol] 53.0 mg/dL Critically high 7.0-18.0 The [facility] Comment on above: Performed By: #### C MP ####[facility] Attlynniks[address] [place], [place] [address]Dr. Farhta Leal Urea nitrogen/Creatinine [Mass ratio] 36.1 mg/mg Normal [facility] Comment on above: Performed By: #### C MP ####[facility] Cqvefscttm66[address] [place], [place] [address]Dr. Farhat Leal PROTIMEon 05-29-2022 INR Coag (PPP) [Relative time] 2.41 {INR} Normal [facility] Comment on above: Performed By: #### P T ####[facility] Drfcapwyck[address] [place], [place] [address]Dr. Farhat Leal INR GUIDELINES SEE BELOW Normal The [facility] Comment on above: Result Comment: MALINA RED INR: 2.0 - 3.0 CONDITIONS NOT LISTED BELOW 2.5 - 3.5 FOR PROSTHETIC HEART VALVE REPLACEMENT 2.5 - 3.5 RECURRENT THROMBOSIS Performed By: #### P T ####[facility] Vtlbqgfeag646[address] [place], [place] [address]Dr. Farhat Leal PT Coag (PPP) [Time] 24.3 s Critically high 9.0-11.6 [facility] Comment on above: Performed By: #### P T ####[facility] Ftsleenexp99[address] [place], [place] [address]Dr. Farhat Leal FK506 (TACROLIMUS) WHOLE BLO ODon 05-25-2022 Tacrolimus (FK506), Blood 5.1 ng/mL Normal 2.0-20.0 The [facility] Comment on above: Result Comment: Trou gh (immediately following transplant) 15.0 . Trough (steady state, 2 weeks or more after transplant): 3.0 - 8.0 . Performed by LC-MS/MS technology. Performed By: #### F K506T ####[facility] Urnqvjepel[address] [place] [address]Dr. Farhat Leal CBC AUTO DIFFon 05-22-2022 BASO # 0.0 103/ul Normal 0.0-0.1 [facility] Comment on above: Performed By: #### C BC ####[facility] Bhyjkrxjcv256[address] [place], [place] [address]Dr. Farhat Leal Basophils/100 WBC (Bld) 0.5 % Normal 0.2-2.0 [facility] Comment on above: Performed By: #### C BC ####[facility] Hzkbsftwxt7[address] [place], [place] [address]Dr. Farhat Leal EO # 0.2 103/ul Normal 0.0-0.7 [facility] Comment on above: Performed By: #### C BC ####[facility] Pmixgupstw01[address] [place], [place] [address]Dr. Madelynlorri Leal Eosinophils/100 WBC (Bld) 4.0 % Normal 0.9-7.0 [facility] Comment on above: Performed By: #### C BC ####[facility] Pjsewyrpzf[address] [place], [place] [address]Dr. Farhat Leal Erythrocyte distribution width (RBC) [Ratio] 15.5 % Critically high 11.0-15.0 The [facility] Comment on above: Performed By: #### C BC ####[facility] Xbfrhbmzbu[address] [place], [place] [address]Dr. Farhat Leal Hematocrit (Bld) [Volume fraction] 34.1 % Critically low 42.0-54.0 [facility] Comment on above: Performed By: #### C BC ####[facility] Ybaairjpes058[address] [place], [place] [address]Dr. Farhat Lela Hemoglobin (Bld) [Mass/Vol] 11.3 g/dL Critically low 14.0-18.0 [facility] Comment on above: Performed By: #### C BC ####[facility] Zivkintrxd1782[address] [place], [place] [address]Dr. Farhat Leal IG # 0.03 10e3/ul Normal 0.00-0.03 [facility] Comment on above: Performed By: #### C BC ####[facility] Rpilvvexsy[address] [place] [id number]. Farhat Leal IG % 0.5 % Normal 0.0-0.5 [facility] Comment on above: Performed By: #### C BC ####[facility] Wyxtwauwed[address] [place] [id number]. Farhat Leal LYMPH # 2.1 103/ul Normal 1.2-3.8 The [facility] Comment on above: Performed By: #### C BC ####[facility] Rxquecmfln60[address] [place] [id number]. Farhat Elvis Lymphocytes/100 WBC (Bld) 34.6 % Normal 20.5-60.0 [facility] Comment on above: Performed By: #### C BC ####[facility] Tqygjckkex06[address] [place] [id number]. Farhat Leal MANUAL DIFF REQ NO Normal [facility] Comment on above: Performed By: #### C BC ####[facility] Fqaervpmtt27[address] [place] [phone]. Farhat Leal MCH (RBC) [Entitic mass] 30.3 pg Normal 25.9-34.0 [facility] Comment on above: Performed By: #### C BC ####[facility] Zfzljoaltz75[address] [place] [phone]. Farhat Leal MCHC (RBC) [Mass/Vol] 33.1 g/dL Normal 29.9-35.2 [facility] Comment on above: Performed By: #### C BC ####[facility] Cyuscfzuqq[address] [place], [place] [address]Dr. Farhat Leal MCV (RBC) [Entitic vol] 91.4 fL Normal 80.0-94.0 [facility] Comment on above: Performed By: #### C BC ####[facility] Pmvwmpkokd6985 [place] [phone]. Farhat Elvis MONO # 0.7 103/ul Normal 0.3-0.8 [facility] Comment on above: Performed By: #### C BC ####[facility] Eybzsjublq2763 [place] [phone]. Farhat Leal Monocytes/100 WBC (Bld) 11.6 % Normal 1.7-12.0 [facility] Comment on above: Performed By: #### C BC ####[facility] Duouorusnl1362 [place] [phone]. Farhat Leal NEUT # 2.9 103/ul Normal 1.4-6.5 [facility] Comment on above: Performed By: #### C BC ####[facility] Eurctctysx0879 [place] [phone]. Farhat Leal Neutrophils/100 WBC (Bld) 48.8 % Normal 43.0-75.0 [facility] Comment on above: Performed By: #### C BC ####[facility] Rdtzumwpas5128 [place] [phone]. Farhat Leal Platelet mean volume (Bld) [Entitic vol] 10.9 fL Normal 9.5-13.5 [facility] Comment on above: Performed By: #### C BC ####[facility] Gdbmzrquhz9[address] [place] [phone]. Farhat Leal PLT 186 103/ul Normal 150-450 [facility] Comment on above: Performed By: #### C BC ####[facility] Vqlvfbstol3681 [place] [phone]. Farhat Leal RBC 3.73 106/ul Critically low 4.70-6.10 The [facility] Comment on above: Performed By: #### C BC ####[facility] Hirkaqeufu8467 [place] [phone]. Farhat Leal WBC 6.0 103/ul Normal 4.0-11.0 [facility] Comment on above: Performed By: #### C BC ####[facility] Huladhieuk[address] [place] [phone]. Farhat Leal PROF 14(COMP METB)on 023 Albumin [Mass/Vol] 2.7 g/dL Critically low 3.4-5.0 [facility] Comment on above: Performed By: #### C MP ####[facility] Wuczrpmedq9045 [place] [phone]. Farhat Elvis Albumin/Globulin [Mass ratio] 0.8 {ratio} Normal [facility] Comment on above: Performed By: #### C MP ####[facility] Zitdnearpe8188 [place] [phone]. Madelynlorri Elvis ALP [Catalytic activity/Vol] 60 U/L Normal 46-116 [facility] Comment on above: Performed By: #### C MP ####[facility] Qzdiblftbc[address] [place], [place] [address]Dr. Farhat Elvis ALT [Catalytic activity/Vol] 17 U/L Normal 16-63 [facility] Comment on above: Performed By: #### C MP ####[facility] Kdrjqdwlqp01[address] [place], [place] [address]Dr. Farhat Leal Anion gap [Moles/Vol] 9.6 mmol/L Normal [facility] Comment on above: Performed By: #### C MP ####[facility] Hhfwcmqjjx6869[address] [place], [place] [address]Dr. Farhat Elvis AST [Catalytic activity/Vol] 14 U/L Critically low 15-37 [facility] Comment on above: Performed By: #### C MP ####[facility] Sczjufmcil2143[address] [place], [place] [address]Dr. Farhat Leal Bilirubin [Mass/Vol] 0.5 mg/dL Normal 0.2-1.0 [facility] Comment on above: Performed By: #### C MP ####[facility] Drbkictpla2227[address] [place], [place] [address]Dr. Farhat Leal Calcium [Mass/Vol] 8.4 mg/dL Critically low 8.5-10.[address] [facility] Comment on above: Performed By: #### C MP ####[facility] Qtnqcuovbu230[address] [place], [place] [address]Dr. Farhat Leal Chloride [Moles/Vol] 104 mmol/L Normal 98-107 [facility] Comment on above: Performed By: #### C MP ####[facility] Phoeqdwmab[address] [place] [address]Dr. Farhat Leal CO2 [Moles/Vol] 27.2 mmol/L Normal 21.0-32.0 The [facility] Comment on above: Performed By: #### C MP ####[facility] Lsxnxkdwcx4052 [place] [address]Dr. Farhat Leal Creatinine [Mass/Vol] 1.24 mg/dL Normal 0.70-1.30 The [facility] Comment on above: Performed By: #### C MP ####[facility] Vjxubjivjb101[address] [place] [address]Dr. Farhat Leal EGFR-AF ICELANDIC >60 Normal >=60 The [facility] Comment on above: Performed By: #### C MP ####[facility] Ineoaiiaku05[address] [place] [address]Dr. Farhat Elvis EGFR-NON AF ICELANDIC 57 mL/min/1.73m2 Critically low >=60 The [facility] Comment on above: Performed By: #### C MP ####[facility] Lacpgiukvf3005 [place] [address]Dr. Farhat Leal Globulin (S) [Mass/Vol] 3.3 g/dL Normal [facility] Comment on above: Performed By: #### C MP ####[facility] Dtlbkxzmgz0093 [place] [address]Dr. Farhat Elvis Glucose [Mass/Vol] 275 mg/dL Critically high 74-106 [facility] Comment on above: Performed By: #### C MP ####[facility] Ncyxdmrtps1463 [place] [address]Dr. Farhat Elvis Potassium [Moles/Vol] 3.8 mmol/L Normal 3.5-5.1 [facility] Comment on above: Performed By: #### C MP ####[facility] Abjiuizuwb8[address] [place], [place] [address]Dr. Farhat Leal Protein [Mass/Vol] 6.0 g/dL Critically low 6.4-8.[address] [facility] Comment on above: Performed By: #### C MP ####[facility] Lwlccdabhd2613 [place] [address]Dr. Farhat Leal Sodium [Moles/Vol] 137 mmol/L Normal 136-145 The [facility] Comment on above: Performed By: #### C MP ####[facility] Ydnskjudhn[address] [place], [place] [address]Dr. Farhat Leal Urea nitrogen [Mass/Vol] 54.0 mg/dL Critically high 7.0-18.0 [facility] Comment on above: Performed By: #### C MP ####[facility] Tawdqkztyn6[address] [place], [place] [address]Dr. Farhat Leal Urea nitrogen/Creatinine [Mass ratio] 43.5 mg/mg Normal [facility] Comment on above: Performed By: #### C MP ####[facility] Xahmvbvoxe228[address] [place], [place] [address]Dr. Farhat Leal PROTIMEon 05-22-2022 INR Coag (PPP) [Relative time] 2.27 {INR} Normal [facility] Comment on above: Performed By: #### P T ####[facility] Oowykgnaaa3184[address] [place], [place] [address]Dr. Farhat Leal INR GUIDELINES SEE BELOW Normal The [facility] Comment on above: Result Comment: MALINA RED INR: 2.0 - 3.0 CONDITIONS NOT LISTED BELOW 2.5 - 3.5 FOR PROSTHETIC HEART VALVE REPLACEMENT 2.5 - 3.5 RECURRENT THROMBOSIS Performed By: #### P T ####[facility] Jwdnecvhrj957[address] [place], [place] [address]Dr. Farhat Leal PT Coag (PPP) [Time] 23.0 s Critically high 9.0-11.6 The [facility] Comment on above: Performed By: #### P T ####[facility] Hqmzhkpkif399[address] [place], [place] [address]Dr. Farhat Leal FK506 (TACROLIMUS) WHOLE BLO ODon 05-19-2022 Tacrolimus (FK506), Blood 7.8 ng/mL Normal 2.0-20.0 [facility] Comment on above: Result Comment: Trou gh (immediately following transplant) 15.0 . Trough (steady state, 2 weeks or more after transplant): 3.0 - 8.0 . Performed by LC-MS/MS technology. Performed By: #### F K506T ####[facility] Tsfyboiaak23[address] [place] [address]Dr. Farhat Leal CBC AUTO DIFFon 05-15-2022 BASO # 0.0 103/ul Normal 0.0-0.1 [facility] Comment on above: Performed By: #### C BC ####[facility] Dferyrfmiy7514 [place] [address]Dr. Farhta Elvis Basophils/100 WBC (Bld) 0.4 % Normal 0.2-2.0 [facility] Comment on above: Performed By: #### C BC ####[facility] Zyrqrjeqlk3253[address] [place], [place] [address]Dr. Farhat Leal EO # 0.2 103/ul Normal 0.0-0.7 The [facility] Comment on above: Performed By: #### C BC ####[facility] Ukpwfixwuq785[address] [place], [place] [address]Dr. Farhat Elvis Eosinophils/100 WBC (Bld) 3.0 % Normal 0.9-7.0 The [facility] Comment on above: Performed By: #### C BC ####[facility] Cgylvytcfv264[address] [place], [place] [address]Dr. Farhat Leal Erythrocyte distribution width (RBC) [Ratio] 15.7 % Critically high 11.0-15.0 [facility] Comment on above: Performed By: #### C BC ####[facility] Pdbqajrcyu4[address] [place], [place] [address]Dr. Farhat Leal Hematocrit (Bld) [Volume fraction] 36.8 % Critically low 42.0-54.0 [facility] Comment on above: Performed By: #### C BC ####[facility] Knjuytersl857[address] [place], [place] [address]Dr. Farhat Leal Hemoglobin (Bld) [Mass/Vol] 12.4 g/dL Critically low 14.0-18.0 [facility] Comment on above: Performed By: #### C BC ####[facility] Kopqomzkuu538[address] [place], [place] [address]DrSkylar Leal IG # 0.01 10e3/ul Normal 0.00-0.03 [facility] Comment on above: Performed By: #### C BC ####[facility] Hckulxflwe2619 [place] [address]DrSkylar Leal IG % 0.1 % Normal 0.0-0.5 [facility] Comment on above: Performed By: #### C BC ####[facility] Wmgqvrcoms3288 [place] [address]DrSkylar Leal LYMPH # 2.4 103/ul Normal 1.2-3.8 [facility] Comment on above: Performed By: #### C BC ####[facility] Btgkvafegk7[address] [place], [place] [address]DrSkylar Leal Lymphocytes/100 WBC (Bld) 35.6 % Normal 20.5-60.0 [facility] Comment on above: Performed By: #### C BC ####[facility] Lkrwirxjmk2264[address] [place], [place] [address]DrSkylar Leal MANUAL DIFF REQ NO Normal [facility] Comment on above: Performed By: #### C BC ####[facility] Vdlofhibsl0869[address] [place], [place] [address]DrSkylar Leal MCH (RBC) [Entitic mass] 30.1 pg Normal 25.9-34.0 [facility] Comment on above: Performed By: #### C BC ####[facility] Hhjcedlvlq[address] [place], [place] [address]DrSkylar Leal MCHC (RBC) [Mass/Vol] 33.7 g/dL Normal 29.9-35.2 [facility] Comment on above: Performed By: #### C BC ####[facility] Jpysivqpjr7842 [place] [address]DrSkylar Leal MCV (RBC) [Entitic vol] 89.3 fL Normal 80.0-94.0 [facility] Comment on above: Performed By: #### C BC ####[facility] Fhtrsshmus23[address] [place], [place] [address]DrSkylar Leal MONO # 0.7 103/ul Normal 0.3-0.8 [facility] Comment on above: Performed By: #### C BC ####[facility] Uuvwxuzdjz9518 [place] [phone] Leal Monocytes/100 WBC (Bld) 10.8 % Normal 1.7-12.0 [facility] Comment on above: Performed By: #### C BC ####[facility] Lciawsspie4007 [place] [phone] Leal NEUT # 3.4 103/ul Normal 1.4-6.5 The [facility] Comment on above: Performed By: #### C BC ####[facility] Vqkcvmfuql7503 [place] [address]DrSkylar Farhat Leal Neutrophils/100 WBC (Bld) 50.1 % Normal 43.0-75.0 The [facility] Comment on above: Performed By: #### C BC ####[facility] Ztyncyiufk0[address] [place], [place] [address]DrSkylar Farhat Leal Platelet mean volume (Bld) [Entitic vol] 10.2 fL Normal 9.5-13.5 The [facility] Comment on above: Performed By: #### C BC ####[facility] Tqjpmfjhwb[address] [place], [place] [address]Dr. Farhat Leal PLT 190 103/ul Normal 150-450 The [facility] Comment on above: Performed By: #### C BC ####[facility] Jgixmcyzzz0868 [place] [phone] Farhat Leal RBC 4.12 106/ul Critically low 4.70-6.10 The [facility] Comment on above: Performed By: #### C BC ####[facility] Zkolhvbfck3289 [place] [phone] Farhat Leal WBC 6.8 103/ul Normal 4.0-11.0 [facility] Comment on above: Performed By: #### C BC ####[facility] Xhlhixmpdz00[address] [place], [place] [address]DrSkylar Farhat Elvis PROF 14(COMP METB)on 023 Albumin [Mass/Vol] 2.8 g/dL Critically low 3.4-5.0 [facility] Comment on above: Performed By: #### C MP ####[facility] Wwyroxhghk5524 [place] [address]Dr. Farhat Leal Albumin/Globulin [Mass ratio] 0.9 {ratio} Normal [facility] Comment on above: Performed By: #### C MP ####[facility] Fjjktdeems7511 [place] [address]Dr. Farhat Leal ALP [Catalytic activity/Vol] 66 U/L Normal 46-116 [facility] Comment on above: Performed By: #### C MP ####[facility] Pkgvszdmaa18[address] [place], [place] [address]Dr. Farhat Leal ALT [Catalytic activity/Vol] 15 U/L Critically low 16-63 [facility] Comment on above: Performed By: #### C MP ####[facility] Hqyduqczcv5975[address] [place], [place] [address]Dr. Farhat Leal Anion gap [Moles/Vol] 11.1 mmol/L Normal [facility] Comment on above: Performed By: #### C MP ####[facility] Dixhkkzxxf8[address] [place], [place] [address]Dr. Farhat Leal AST [Catalytic activity/Vol] 14 U/L Critically low 15-37 [facility] Comment on above: Performed By: #### C MP ####[facility] Yzypjbcjwe23[address] [place], [place] [address]Dr. Farhat Leal Bilirubin [Mass/Vol] 0.8 mg/dL Normal 0.2-1.0 [facility] Comment on above: Performed By: #### C MP ####[facility] Kfcxuczhqf32[address] [place], [place] [address]Dr. Farhat Leal Calcium [Mass/Vol] 8.9 mg/dL Normal 8.5-10.1 [facility] Comment on above: Performed By: #### C MP ####[facility] Wnlomxeysj201[address] [place], [place] [address]Dr. Farhat Leal Chloride [Moles/Vol] 101 mmol/L Normal 98-107 [facility] Comment on above: Performed By: #### C MP ####[facility] Fsjboifxed[address] [place] [address]Dr. Farhat Leal CO2 [Moles/Vol] 28.2 mmol/L Normal 21.0-32.0 [facility] Comment on above: Performed By: #### C MP ####[facility] Ilkbtbxmoh8107 [place] [address]Dr. Farhat Elvis Creatinine [Mass/Vol] 1.23 mg/dL Normal 0.70-1.30 [facility] Comment on above: Performed By: #### C MP ####[facility] Jikskvpiyj9148 [place] [address]Dr. Farhat Elvis EGFR-AF ICELANDIC >60 Normal >=60 [facility] Comment on above: Performed By: #### C MP ####[facility] Bxrscikbft7389 [place] [address]Dr. Madelynlorri Elvis EGFR-NON AF ICELANDIC 57 mL/min/1.73m2 Critically low >=60 [facility] Comment on above: Performed By: #### C MP ####[facility] Dulqnufvda0733 [place] [address]Dr. Farhat Elvis Globulin (S) [Mass/Vol] 3.2 g/dL Normal [facility] Comment on above: Performed By: #### C MP ####[facility] Ohbranwces0946 [place] [address]Dr. Farhat Leal Glucose [Mass/Vol] 333 mg/dL Critically high 74-106 [facility] Comment on above: Performed By: #### C MP ####[facility] Oplnyucayz2043 [place] [address]Dr. Madelynlorri Leal Potassium [Moles/Vol] 4.3 mmol/L Normal 3.5-5.1 [facility] Comment on above: Performed By: #### C MP ####[facility] Gttsezbpoi7537 [place] [address]Dr. Farhat Leal Protein [Mass/Vol] 6.0 g/dL Critically low 6.4-8.2 Th e [facility] Comment on above: Performed By: #### C MP ####[facility] Qsstnrsrwi9592 [place] [address]Dr. Farhat Leal Sodium [Moles/Vol] 136 mmol/L Normal 136-145 [facility] Comment on above: Performed By: #### C MP ####[facility] Lmevteouws84[address] [place], [place] [address]Dr. Farhat Leal Urea nitrogen [Mass/Vol] 58.0 mg/dL Critically high 7.0-18.0 [facility] Comment on above: Performed By: #### C MP ####[facility] Yznagdpxsr25[address] [place], [place] [address]Dr. Farhat Leal Urea nitrogen/Creatinine [Mass ratio] 47.2 mg/mg Normal [facility] Comment on above: Performed By: #### C MP ####[facility] Ranfzxtapr708[address] [place], [place] [address]Dr. Farhat Leal PROTIMEon 05-13-2022 INR Coag (PPP) [Relative time] 3.51 {INR} Normal [facility] Comment on above: Performed By: #### P T ####[facility] Fdvccclraa8[address] [place], [place] [address]Dr. Farhat Leal INR GUIDELINES SEE BELOW Normal [facility] Comment on above: Result Comment: MALINA RED INR: 2.0 - 3.0 CONDITIONS NOT LISTED BELOW 2.5 - 3.5 FOR PROSTHETIC HEART VALVE REPLACEMENT 2.5 - 3.5 RECURRENT THROMBOSIS Performed By: #### P T ####[facility] Bkoqkfwekl038[address] [place], [place] [address]Dr. Farhat Leal PT Coag (PPP) [Time] 34.7 s Critically high 9.0-11.6 [facility] Comment on above: Performed By: #### P T ####[facility] Bhagitqoas76[address] [place], [place] [address]Dr. Farhat Leal FK506 (TACROLIMUS) WHOLE BLO ODon 05-11-2022 Tacrolimus (FK506), Blood 14.4 ng/mL Normal 2.0-20.0 [facility] Comment on above: Result Comment: Trou gh (immediately following transplant) 15.0 . Trough (steady state, 2 weeks or more after transplant): 3.0 - 8.0 . Performed by LC-MS/MS technology. Performed By: #### F K506T ####[facility] Tfnacgbrll28[address] [place], [place] [address]Dr. Farhat Leal CBC AUTO DIFFon 05-08-2022 BASO # 0.0 103/ul Normal 0.0-0.1 [facility] Comment on above: Performed By: #### C BC ####[facility] Ezuiwndsce026[address] [place], [place] [address]Dr. Farhat Leal Basophils/100 WBC (Bld) 0.5 % Normal 0.2-2.0 [facility] Comment on above: Performed By: #### C BC ####[facility] Fkreywbmke9168[address] [place], [place] [address]Dr. Farhat Leal EO # 0.2 103/ul Normal 0.0-0.7 [facility] Comment on above: Performed By: #### C BC ####[facility] Nrgechvgtg33[address] [place], [place] [address]Dr. Farhat Leal Eosinophils/100 WBC (Bld) 2.9 % Normal 0.9-7.0 [facility] Comment on above: Performed By: #### C BC ####[facility] Cifsslazpy[address] [place], [place] [address]Dr. Farhat Leal Erythrocyte distribution width (RBC) [Ratio] 16.0 % Critically high 11.0-15.0 [facility] Comment on above: Performed By: #### C BC ####[facility] Jdxcpmxqtt4[address] [place], [place] [address]Dr. Farhat Leal Hematocrit (Bld) [Volume fraction] 35.7 % Critically low 42.0-54.0 [facility] Comment on above: Performed By: #### C BC ####[facility] Peyionbowj18[address] [place], [place] [address]Dr. Farhat Leal Hemoglobin (Bld) [Mass/Vol] 11.9 g/dL Critically low 14.0-18.0 [facility] Comment on above: Performed By: #### C BC ####[facility] Auttyoujho06[address] [place] [address]Dr. Farhat Leal IG # 0.03 10e3/ul Normal 0.00-0.03 [facility] Comment on above: Performed By: #### C BC ####[facility] Exbmmuhmoc0935 [place] [address]Dr. Farhat Leal IG % 0.5 % Normal 0.0-0.5 [facility] Comment on above: Performed By: #### C BC ####[facility] Ptytsiaosw0488 [place] [address]Dr. Farhat Leal LYMPH # 2.4 103/ul Normal 1.2-3.8 [facility] Comment on above: Performed By: #### C BC ####[facility] Zxsbnjphay[address] [place] [place] [address]Dr. Farhat Leal Lymphocytes/100 WBC (Bld) 37.8 % Normal 20.5-60.0 [facility] Comment on above: Performed By: #### C BC ####[facility] Kpojwxllgj5[address] [place] [address]Dr. Farhat Leal MANUAL DIFF REQ NO Normal [facility] Comment on above: Performed By: #### C BC ####[facility] Aerzqdegel9371 [place] [address]Dr. Farhat Leal MCH (RBC) [Entitic mass] 30.4 pg Normal 25.9-34.0 [facility] Comment on above: Performed By: #### C BC ####[facility] Krogqbguzg9[address] [place] [phone]. Farhat Leal MCHC (RBC) [Mass/Vol] 33.3 g/dL Normal 29.9-35.2 [facility] Comment on above: Performed By: #### C BC ####[facility] Lvzpifvphq7047 [place] [address]Dr. Farhat Leal MCV (RBC) [Entitic vol] 91.1 fL Normal 80.0-94.0 [facility] Comment on above: Performed By: #### C BC ####[facility] Euscsmhkvg6628 [place] [phone]. Farhat Leal MONO # 0.7 103/ul Normal 0.3-0.8 [facility] Comment on above: Performed By: #### C BC ####[facility] Agsmueefaq4893 [place] [phone]. Farhat Leal Monocytes/100 WBC (Bld) 11.1 % Normal 1.7-12.0 [facility] Comment on above: Performed By: #### C BC ####[facility] Wppgcxmvvw9829 [place] [phone]. Farhat Leal NEUT # 2.9 103/ul Normal 1.4-6.5 [facility] Comment on above: Performed By: #### C BC ####[facility] Bdjzbzzulp6807 [place] [phone]. Farhat Leal Neutrophils/100 WBC (Bld) 47.2 % Normal 43.0-75.0 [facility] Comment on above: Performed By: #### C BC ####[facility] Zkogltmfhu9314 [place] [phone]. Farhat Leal Platelet mean volume (Bld) [Entitic vol] 11.0 fL Normal 9.5-13.5 [facility] Comment on above: Performed By: #### C BC ####[facility] Bbzkjteobe8512 [place] [phone]. Farhat Leal PLT 191 103/ul Normal 150-450 [facility] Comment on above: Performed By: #### C BC ####[facility] Dktlcksrfb2150 [place] [phone]. Farhat Leal RBC 3.92 106/ul Critically low 4.70-6.10 The [facility] Comment on above: Performed By: #### C BC ####[facility] Thxhskyiuc9195 [place] [phone]. Farhat Leal WBC 6.2 103/ul Normal 4.0-11.0 [facility] Comment on above: Performed By: #### C BC ####[facility] Yvlnumeifx3188 [place] [address]Dr. Farhat Leal MAGNESIUMon 05-08-2022 Magnesium [Mass/Vol] 1.9 mg/dL Normal 1.8-2.4 [facility] Comment on above: Performed By: #### P HOS, MG ####[facility] Njlhoewyap8590 [place] [address]Dr. Faraht Leal PHOSPHORUSon 05-08-2022 Phosphate [Mass/Vol] 4.5 mg/dL Normal 2.6-4.7 [facility] Comment on above: Performed By: #### P HOS, MG ####[facility] Vtfevdwizv5429 [place] [address]Dr. Farhat Leal PROF 14(COMP METB)on 023 Albumin [Mass/Vol] 2.9 g/dL Critically low 3.4-5.0 [facility] Comment on above: Performed By: #### C MP ####[facility] Bcrnenhgjk[address] [place], [place] [address]Dr. Farhat Leal Albumin/Globulin [Mass ratio] 0.9 {ratio} Normal [facility] Comment on above: Performed By: #### C MP ####[facility] Qpxlaxrfrz7[address] [place], [place] [address]Dr. Farhat Leal ALP [Catalytic activity/Vol] 70 U/L Normal 46-116 [facility] Comment on above: Performed By: #### C MP ####[facility] Gzrerwtjnp[address] [place], [place] [address]Dr. Farhat Leal ALT [Catalytic activity/Vol] 13 U/L Critically low 16-63 [facility] Comment on above: Performed By: #### C MP ####[facility] Pcpylzpvlr89[address] [place], [place] [address]Dr. Farhat Leal Anion gap [Moles/Vol] 14.6 mmol/L Normal [facility] Comment on above: Performed By: #### C MP ####[facility] Ytxkhoiqxn7[address] [place], [place] [address]Dr. Farhat Leal AST [Catalytic activity/Vol] 17 U/L Normal 15-37 [facility] Comment on above: Performed By: #### C MP ####[facility] Kdfpbewoim5434 [place] [address]Dr. Farhat Leal Bilirubin [Mass/Vol] 0.8 mg/dL Normal 0.2-1.0 [facility] Comment on above: Performed By: #### C MP ####[facility] Rdyjnhplbz9504 [place] [address]Dr. Farhat Leal Calcium [Mass/Vol] 8.9 mg/dL Normal 8.5-10.1 [facility] Comment on above: Performed By: #### C MP ####[facility] Thyhucezty1712[address] [place], [place] [address]Dr. Farhat Leal Chloride [Moles/Vol] 102 mmol/L Normal 98-107 [facility] Comment on above: Performed By: #### C MP ####[facility] Jcvuulxmvf9[address] [place], [place] [address]Dr. Farhat Elvis CO2 [Moles/Vol] 22.9 mmol/L Normal 21.0-32.0 The [facility] Comment on above: Performed By: #### C MP ####[facility] Nskqnkxavp17[address] [place], [place] [address]Dr. Farhat Elvis Creatinine [Mass/Vol] 1.20 mg/dL Normal 0.70-1.30 [facility] Comment on above: Performed By: #### C MP ####[facility] Bvqgvhxube2023[address] [place], [place] [address]Dr. Farhat Elvis EGFR-AF ICELANDIC >60 Normal >=60 [facility] Comment on above: Performed By: #### C MP ####[facility] Hqqhdmddtd9012 [place] [phone]. Madelynlorri Elvis EGFR-NON AF ICELANDIC 59 mL/min/1.73m2 Critically low >=60 [facility] Comment on above: Performed By: #### C MP ####[facility] Uxpdalodvr5939 [place] [phone]. Farhat Leal Globulin (S) [Mass/Vol] 3.1 g/dL Normal [facility] Comment on above: Performed By: #### C MP ####[facility] Ddhefcfhis2732 [place] [phone]. Farhat Leal Glucose [Mass/Vol] 447 mg/dL Critically high 74-106 [facility] Comment on above: Performed By: #### C MP ####[facility] Zttggozrji7130 [place] [phone]. Farhat Leal Potassium [Moles/Vol] 4.5 mmol/L Normal 3.5-5.1 [facility] Comment on above: Performed By: #### C MP ####[facility] Nkxuhovvjw3144 [place] [address]Dr. Farhat Leal Protein [Mass/Vol] 6.0 g/dL Critically low 6.4-8.[address] [facility] Comment on above: Performed By: #### C MP ####[facility] Rlcrhwjdar77[address] [place], [place] [address]Dr. Farhat Leal Sodium [Moles/Vol] 135 mmol/L Critically low 136-[address] [facility] Comment on above: Performed By: #### C MP ####[facility] Dhyjawzigx7367[address] [place], [place] [address]Dr. Farhat Leal Urea nitrogen [Mass/Vol] 52.0 mg/dL Critically high 7.0-18.0 [facility] Comment on above: Performed By: #### C MP ####[facility] Kkskytxokb44[address] [place], [place] [address]Dr. Farhat Leal Urea nitrogen/Creatinine [Mass ratio] 43.3 mg/mg Normal [facility] Comment on above: Performed By: #### C MP ####[facility] Vznehqrhvj8712 [place] [phone]. Farhat Leal PROTIMEon 05-06-2022 INR Coag (PPP) [Relative time] 2.25 {INR} Normal [facility] Comment on above: Performed By: #### P T ####[facility] Qyqfurljei87[address] [place], [place] [address]Dr. Farhat Leal INR GUIDELINES SEE BELOW Normal [facility] Comment on above: Result Comment: MALINA RED INR: 2.0 - 3.0 CONDITIONS NOT LISTED BELOW 2.5 - 3.5 FOR PROSTHETIC HEART VALVE REPLACEMENT 2.5 - 3.5 RECURRENT THROMBOSIS Performed By: #### P T ####[facility] Cqzzcauouk[address] [place], [place] [address]Dr. Farhat Leal PT Coag (PPP) [Time] 22.8 s Critically high 9.0-11.6 [facility] Comment on above: Performed By: #### P T ####[facility] Ataqkavraq80[address] [place], [place] [address]Dr. Farhat Leal FK506 (TACROLIMUS) WHOLE BLO ODon 05-04-2022 Tacrolimus (FK506), Blood 10.4 ng/mL Normal 2.0-20.0 [facility] Comment on above: Result Comment: Trou gh (immediately following transplant) 15.0 . Trough (steady state, 2 weeks or more after transplant): 3.0 - 8.0 . Performed by LC-MS/MS technology. Performed By: #### F K506T ####[facility] Yrbsfzoksu59[address] [place], [place] [address]Dr. Farhat Leal CBC AUTO DIFFon 05-01-2022 BASO # 0.1 103/ul Normal 0.0-0.1 [facility] Comment on above: Performed By: #### C BC ####[facility] Tbbsxtpryb8737[address] [place], [place] [address]Dr. Farhat Leal Basophils/100 WBC (Bld) 0.7 % Normal 0.2-2.0 [facility] Comment on above: Performed By: #### C BC ####[facility] Igibgznmqi9137[address] [place], [place] [address]Dr. Farhat Leal EO # 0.2 103/ul Normal 0.0-0.7 [facility] Comment on above: Performed By: #### C BC ####[facility] Osremhhqjh1443[address] [place], [place] [address]Dr. Farhat Leal Eosinophils/100 WBC (Bld) 3.2 % Normal 0.9-7.0 [facility] Comment on above: Performed By: #### C BC ####[facility] Bjbzzsfqiu6637 [place] [address]Dr. Farhat Leal Erythrocyte distribution width (RBC) [Ratio] 16.4 % Critically high 11.0-15.0 [facility] Comment on above: Performed By: #### C BC ####[facility] Xsihpgqboe3[address] [place], [place] [address]Dr. Farhat Leal Hematocrit (Bld) [Volume fraction] 35.1 % Critically low 42.0-54.0 [facility] Comment on above: Performed By: #### C BC ####[facility] Dxkrpqlkse[address] [place], [place] [address]Dr. Farhat Leal Hemoglobin (Bld) [Mass/Vol] 11.6 g/dL Critically low 14.0-18.0 [facility] Comment on above: Performed By: #### C BC ####[facility] Zctfslnbqy4[address] [place], [place] [address]Dr. Farhat Leal IG # 0.03 10e3/ul Normal 0.00-0.03 [facility] Comment on above: Performed By: #### C BC ####[facility] Lsgcuzltsc4[address] [place], [place] [address]Dr. Farhat Leal IG % 0.4 % Normal 0.0-0.5 [facility] Comment on above: Performed By: #### C BC ####[facility] Kxhgmglrwu[address] [place], [place] [address]Dr. Farhat Leal LYMPH # 2.4 103/ul Normal 1.2-3.8 [facility] Comment on above: Performed By: #### C BC ####[facility] Xizaxeqsxr4[address] [place], [place] [address]Dr. Farhat Leal Lymphocytes/100 WBC (Bld) 35.1 % Normal 20.5-60.0 [facility] Comment on above: Performed By: #### C BC ####[facility] Ixwymjnkqp8032[address] [place], [place] [address]Dr. Farhat Leal MANUAL DIFF REQ NO Normal [facility] Comment on above: Performed By: #### C BC ####[facility] Ychqhiouux4835 [place] [phone]. Farhat Elvis MCH (RBC) [Entitic mass] 29.4 pg Normal 25.9-34.0 [facility] Comment on above: Performed By: #### C BC ####[facility] Dohompggad2994 [place] [phone]. Farhat Elvis MCHC (RBC) [Mass/Vol] 33.0 g/dL Normal 29.9-35.2 [facility] Comment on above: Performed By: #### C BC ####[facility] Uuxxhkwiep1915 [place] [phone]. Madelynlorri Leal MCV (RBC) [Entitic vol] 88.9 fL Normal 80.0-94.0 [facility] Comment on above: Performed By: #### C BC ####[facility] Seyjqjjzsh05[address] [place], [place] [address]Dr. Farhat Leal MONO # 0.7 103/ul Normal 0.3-0.8 [facility] Comment on above: Performed By: #### C BC ####[facility] Eeqyjvqnuf35[address] [place], [place] [address]Dr. Farhat Leal Monocytes/100 WBC (Bld) 9.6 % Normal 1.7-12.0 [facility] Comment on above: Performed By: #### C BC ####[facility] Jlidynpxdz17[address] [place], [place] [address]Dr. Farhat Leal NEUT # 3.5 103/ul Normal 1.4-6.5 [facility] Comment on above: Performed By: #### C BC ####[facility] Kfxtasgdwe[address] [place], [place] [address]Dr. Farhat Leal Neutrophils/100 WBC (Bld) 51.0 % Normal 43.0-75.0 [facility] Comment on above: Performed By: #### C BC ####[facility] Rlqaxknlhc5[address] [place], [place] [address]Dr. Farhat Leal Platelet mean volume (Bld) [Entitic vol] 10.3 fL Normal 9.5-13.5 [facility] Comment on above: Performed By: #### C BC ####[facility] Icwkffyobk6353 [place] [phone]. Farhat Elvis PLT 184 103/ul Normal 150-450 [facility] Comment on above: Performed By: #### C BC ####[facility] Lwjyherwpz7255 [place] [phone]. Madelynlorri Leal RBC 3.95 106/ul Critically low 4.70-6.10 [facility] Comment on above: Performed By: #### C BC ####[facility] Akbbzdvzyx9330 [place] [phone]. Madelynlorri Elvis WBC 7.0 103/ul Normal 4.0-11.0 [facility] Comment on above: Performed By: #### C BC ####[facility] Tmrrigtzso6132 [place] [address]Dr. Farhat Leal PROF 14(COMP METB)on 023 Albumin [Mass/Vol] 2.6 g/dL Critically low 3.4-5.0 [facility] Comment on above: Performed By: #### C MP ####[facility] Uahsyqwepd0[address] [place], [place] [address]Dr. Farhat Leal Albumin/Globulin [Mass ratio] 0.9 {ratio} Normal [facility] Comment on above: Performed By: #### C MP ####[facility] Exgqekzspb1192 [place] [address]Dr. Farhat Leal ALP [Catalytic activity/Vol] 53 U/L Normal 46-116 [facility] Comment on above: Performed By: #### C MP ####[facility] Cjsxjvvbme1717 [place] [address]Dr. Farhat Leal ALT [Catalytic activity/Vol] 17 U/L Normal 16-63 [facility] Comment on above: Performed By: #### C MP ####[facility] Omnysgmcce8114 [place] [address]Dr. Farhat Leal Anion gap [Moles/Vol] 10.0 mmol/L Normal [facility] Comment on above: Performed By: #### C MP ####[facility] Ifqjtcczjy0124 [place] [phone]. Farhat Leal AST [Catalytic activity/Vol] 19 U/L Normal 15-37 [facility] Comment on above: Performed By: #### C MP ####[facility] Maqofpwiyb2496 [place] [phone]. Farhat Leal Bilirubin [Mass/Vol] 0.5 mg/dL Normal 0.2-1.0 [facility] Comment on above: Performed By: #### C MP ####[facility] Xlebvfnqjj5344[address] [place], [place] [address]Dr. Farhat Leal Calcium [Mass/Vol] 8.4 mg/dL Critically low 8.5-10.1 Th e [facility] Comment on above: Performed By: #### C MP ####[facility] Yxartsnsdb1875[address] [place], [place] [address]Dr. Farhat Leal Chloride [Moles/Vol] 108 mmol/L Critically high 98-107 [facility] Comment on above: Performed By: #### C MP ####[facility] Enayvpjhyh64[address] [place], [place] [address]Dr. Farhat Leal CO2 [Moles/Vol] 26.9 mmol/L Normal 21.0-32.0 The [facility] Comment on above: Performed By: #### C MP ####[facility] Etxaclmtip9467[address] [place], [place] [address]Dr. Farhat Leal Creatinine [Mass/Vol] 1.20 mg/dL Normal 0.70-1.30 [facility] Comment on above: Performed By: #### C MP ####[facility] Xokmgdncdv0618 [place] [phone]. Farhat Elvis EGFR-AF ICELANDIC >60 Normal >=60 The [facility] Comment on above: Performed By: #### C MP ####[facility] Urfpkxrvcz4842[address] [place], [place] [address]Dr. Farhat Elvis EGFR-NON AF ICELANDIC 59 mL/min/1.73m2 Critically low >=60 The [facility] Comment on above: Performed By: #### C MP ####[facility] Wbbhwznibc7916 [place] [phone]. Farhat Leal Globulin (S) [Mass/Vol] 3.0 g/dL Normal [facility] Comment on above: Performed By: #### C MP ####[facility] Lyngrtldnd1610 [place] [phone]. Farhat Leal Glucose [Mass/Vol] 213 mg/dL Critically high 74-106 [facility] Comment on above: Performed By: #### C MP ####[facility] Ljlrigdqxm3897 [place] [phone]. Farhat Leal Potassium [Moles/Vol] 3.9 mmol/L Normal 3.5-5.1 [facility] Comment on above: Performed By: #### C MP ####[facility] Hqpkjuvtgw8330 [place] [address]Dr. Farhat Leal Protein [Mass/Vol] 5.6 g/dL Critically low 6.4-8.[address] [facility] Comment on above: Performed By: #### C MP ####[facility] Gjiaytmvwc1270 [place] [address]Dr. Farhat Leal Sodium [Moles/Vol] 141 mmol/L Normal 136-145 [facility] Comment on above: Performed By: #### C MP ####[facility] Odqrtlciyr9714 [place] [phone]. Farhat Leal Urea nitrogen [Mass/Vol] 61.0 mg/dL Critically high 7.0-18.0 [facility] Comment on above: Performed By: #### C MP ####[facility] Eadgpqnbrs3299 [place] [address]Dr. Farhat Leal Urea nitrogen/Creatinine [Mass ratio] 50.8 mg/mg Normal [facility] Comment on above: Performed By: #### C MP ####[facility] Gsruazdhnb50[address] [place], [place] [address]Dr. Farhat Leal FK506 (TACROLIMUS) WHOLE BLO ODon 04-27-2022 Tacrolimus (FK506), Blood 16.5 ng/mL Normal 2.0-20.0 [facility] Comment on above: Result Comment: Trou gh (immediately following transplant) 15.0 . Trough (steady state, 2 weeks or more after transplant): 3.0 - 8.0 . Performed by LC-MS/MS technology. Performed By: #### F K506T ####[facility] Qurtdofzqu4911[address] [place], [place] [address]Dr. Farhat Leal CBC AUTO DIFFon 04-24-2022 BASO # 0.0 103/ul Normal 0.0-0.1 [facility] Comment on above: Performed By: #### C BC ####[facility] Puzeguhatc[address] [place], [place] [address]Dr. Farhat Leal Basophils/100 WBC (Bld) 0.5 % Normal 0.2-2.0 [facility] Comment on above: Performed By: #### C BC ####[facility] Txnfzyddcc7[address] [place], [place] [address]Dr. Farhat Leal EO # 0.2 103/ul Normal 0.0-0.7 [facility] Comment on above: Performed By: #### C BC ####[facility] Hcfjoyeenk87[address] [place], [place] [address]Dr. Farhat Leal Eosinophils/100 WBC (Bld) 3.1 % Normal 0.9-7.0 [facility] Comment on above: Performed By: #### C BC ####[facility] Gxzcmmpbvo5[address] [place], [place] [address]Dr. Farhat Leal Erythrocyte distribution width (RBC) [Ratio] 16.3 % Critically high 11.0-15.0 [facility] Comment on above: Performed By: #### C BC ####[facility] Btvvibgkwo[address] [place], [place] [address]Dr. Farhat Leal Hematocrit (Bld) [Volume fraction] 34.0 % Critically low 42.0-54.0 [facility] Comment on above: Performed By: #### C BC ####[facility] Lbnzvesnsf67[address] [place], [place] [address]Dr. Farhat Leal Hemoglobin (Bld) [Mass/Vol] 11.6 g/dL Critically low 14.0-18.0 The [facility] Comment on above: Performed By: #### C BC ####[facility] Tuppjzvowr2863 [place] [phone]. Madelynlorri Elvis IG # 0.02 10e3/ul Normal 0.00-0.03 [facility] Comment on above: Performed By: #### C BC ####[facility] Jzlrwwezfd1803 [place] [phone]. Farhat Leal IG % 0.4 % Normal 0.0-0.5 [facility] Comment on above: Performed By: #### C BC ####[facility] Rexwomwhzj2461 [place] [address]Dr. Farhat Leal LYMPH # 2.2 103/ul Normal 1.2-3.8 [facility] Comment on above: Performed By: #### C BC ####[facility] Gauvgelwdt1061 [place] [address]Dr. Farhat Leal Lymphocytes/100 WBC (Bld) 38.8 % Normal 20.5-60.0 [facility] Comment on above: Performed By: #### C BC ####[facility] Hrzpczvpvn4670 [place] [address]DrSkylar Leal MANUAL DIFF REQ NO Normal [facility] Comment on above: Performed By: #### C BC ####[facility] Fzazuhifuq8509 [place] [phone]. Farhat Leal MCH (RBC) [Entitic mass] 30.1 pg Normal 25.9-34.0 [facility] Comment on above: Performed By: #### C BC ####[facility] Cigxetzjqf0187 [place] [phone]. Madelynlorri Leal MCHC (RBC) [Mass/Vol] 34.1 g/dL Normal 29.9-35.2 [facility] Comment on above: Performed By: #### C BC ####[facility] Znghaybzgc6380 [place] [phone]. Farhat Leal MCV (RBC) [Entitic vol] 88.1 fL Normal 80.0-94.0 [facility] Comment on above: Performed By: #### C BC ####[facility] Adkprlcjef7141 [place] [phone]. Farhat Leal MONO # 0.6 103/ul Normal 0.3-0.8 [facility] Comment on above: Performed By: #### C BC ####[facility] Wcuukuggkq9078 [place] [phone]. Farhat Leal Monocytes/100 WBC (Bld) 10.8 % Normal 1.7-12.0 [facility] Comment on above: Performed By: #### C BC ####[facility] Gvuczaxwue4323 [place] [phone]. Farhat Leal NEUT # 2.6 103/ul Normal 1.4-6.5 [facility] Comment on above: Performed By: #### C BC ####[facility] Sugnqlxbvn0755 [place] [phone]. Farhat Leal Neutrophils/100 WBC (Bld) 46.4 % Normal 43.0-75.0 [facility] Comment on above: Performed By: #### C BC ####[facility] Nilpmuikhi5674 [place] [phone]. Farhat Leal Platelet mean volume (Bld) [Entitic vol] 10.9 fL Normal 9.5-13.5 [facility] Comment on above: Performed By: #### C BC ####[facility] Sebxbrdxfw0046 [place] [phone]. Farhat Leal PLT 159 103/ul Normal 150-450 [facility] Comment on above: Performed By: #### C BC ####[facility] Ywpvccptsx6758 [place] [phone]. Farhat Leal RBC 3.86 106/ul Critically low 4.70-6.10 The [facility] Comment on above: Performed By: #### C BC ####[facility] Utsrshuvke1567 [place] [phone]. Farhat Leal WBC 5.6 103/ul Normal 4.0-11.0 [facility] Comment on above: Performed By: #### C BC ####[facility] Yjolhacdnl0543 [place] [address]Dr. Farhat Leal PROTIMEon 04-24-2022 INR Coag (PPP) [Relative time] 3.23 {INR} Normal [facility] Comment on above: Performed By: #### P T ####[facility] Oonnjvbfrv6084 [place] [address]Dr. Farhat Leal INR GUIDELINES SEE BELOW Normal [facility] Comment on above: Result Comment: MALINA RED INR: 2.0 - 3.0 CONDITIONS NOT LISTED BELOW 2.5 - 3.5 FOR PROSTHETIC HEART VALVE REPLACEMENT 2.5 - 3.5 RECURRENT THROMBOSIS Performed By: #### P T ####[facility] Smytsiwiij[address] [place], [place] [address]Dr. Farhat Leal PT Coag (PPP) [Time] 32.0 s Critically high 9.0-11.6 [facility] Comment on above: Performed By: #### P T ####[facility] Bhyfymlshw8[address] [place], [place] [address]Dr. Farhat Leal FK506 (TACROLIMUS) WHOLE BLO ODon 04-20-2022 Tacrolimus (FK506), Blood 13.9 ng/mL Normal 2.0-20.0 [facility] Comment on above: Result Comment: Trou gh (immediately following transplant) 15.0 . Trough (steady state, 2 weeks or more after transplant): 3.0 - 8.0 . Performed by LC-MS/MS technology. Performed By: #### F K506T ####[facility] Kcxqumfpcc[address] [place], [place] [address]Dr. Farhat Leal CBC AUTO DIFFon 04-17-2022 BASO # 0.0 103/ul Normal 0.0-0.1 [facility] Comment on above: Performed By: #### C BC ####[facility] Emppftzt[address] [place], [place] [address]DrSkylar Leal Basophils/100 WBC (Bld) 0.4 % Normal 0.2-2.0 [facility] Comment on above: Performed By: #### C BC ####[facility] [address] [place], [place] [address]Dr. Farhat Leal EO # 0.2 103/ul Normal 0.0-0.7 [facility] Comment on above: Performed By: #### C BC ####[facility] [address] [place] [address]Dr. Farhat Leal Eosinophils/100 WBC (Bld) 2.8 % Normal 0.9-7.0 [facility] Comment on above: Performed By: #### C BC ####[facility] Qu[address]ixjx[address] [place], [place] [address]Dr. Farhat Leal Erythrocyte distribution width (RBC) [Ratio] 16.1 % Critically high 11.0-15.0 [facility] Comment on above: Performed By: #### C BC ####[facility] [address] [place] [address]Dr. Farhat Leal Hematocrit (Bld) [Volume fraction] 35.7 % Critically low 42.0-54.0 [facility] Comment on above: Performed By: #### C BC ####[facility] [address] [place], [place] [address]Dr. Farhat Leal Hemoglobin (Bld) [Mass/Vol] 12.2 g/dL Critically low 14.0-18.0 [facility] Comment on above: Performed By: #### C BC ####[facility] [address] [place], [place] [address]Dr. Farhat Leal IG # 0.03 10e3/ul Normal 0.00-0.03 [facility] Comment on above: Performed By: #### C BC ####[facility] Myqaarhxht[address] [place], [place] [address]Dr. Farhat Leal IG % 0.4 % Normal 0.0-0.5 [facility] Comment on above: Performed By: #### C BC ####[facility] Efsw[address] [place], [place] [address]Dr. Farhat Leal LYMPH # 2.4 103/ul Normal 1.2-3.8 [facility] Comment on above: Performed By: #### C BC ####[facility] [address] [place] [address]Dr. Farhat Elvis Lymphocytes/100 WBC (Bld) 36.1 % Normal 20.5-60.0 [facility] Comment on above: Performed By: #### C BC ####[facility] [address]xf[address] [place] [address]Dr. Madelynlorri Leal MANUAL DIFF REQ NO Normal The [facility] Comment on above: Performed By: #### C BC ####[facility] Qmcxncmgto56[address] [place] [address]Dr. Farhat Elvis MCH (RBC) [Entitic mass] 30.3 pg Normal 25.9-34.0 [facility] Comment on above: Performed By: #### C BC ####[facility] [address]qq[address] [place], [place] [address]Dr. Madelynlorri Leal MCHC (RBC) [Mass/Vol] 34.2 g/dL Normal 29.9-35.2 [facility] Comment on above: Performed By: #### C BC ####[facility] H[address]uz[address] [place], [place] [address]Dr. Madelynlorri Leal MCV (RBC) [Entitic vol] 88.6 fL Normal 80.0-94.0 [facility] Comment on above: Performed By: #### C BC ####[facility] [address]ks[address] [place], [place] [address]Dr. Farhat Leal MONO # 0.7 103/ul Normal 0.3-0.8 [facility] Comment on above: Performed By: #### C BC ####[facility] H[address]up[address]vxv[address] [place], [place] [address]Dr. Madelynlorri Leal Monocytes/100 WBC (Bld) 10.1 % Normal 1.7-12.0 [facility] Comment on above: Performed By: #### C BC ####[facility] Hwsucprzqs[address] [place], [place] [address]Dr. Farhat Leal NEUT # 3.4 103/ul Normal 1.4-6.5 [facility] Comment on above: Performed By: #### C BC ####[facility] [address] [place] [address]Dr. Farhat Leal Neutrophils/100 WBC (Bld) 50.2 % Normal 43.0-75.0 [facility] Comment on above: Performed By: #### C BC ####[facility] [address]yt[address]msfb37[address] [place] [address]Dr. Farhat Leal Platelet mean volume (Bld) [Entitic vol] 11.8 fL Normal 9.5-13.5 [facility] Comment on above: Performed By: #### C BC ####[facility] [address]ew[address]ia[address] [place] [address]Dr. Farhat Leal PLT 193 103/ul Normal 150-450 [facility] Comment on above: Performed By: #### C BC ####[facility] M[address]frnrt[address] [place], [place] [address]Dr. Farhat Leal RBC 4.03 106/ul Critically low 4.70-6.10 The [facility] Comment on above: Performed By: #### C BC ####[facility] Ydwciipddx[address] [place], [place] [address]Dr. Farhat Leal WBC 6.8 103/ul Normal 4.0-11.0 [facility] Comment on above: Performed By: #### C BC ####[facility] Keldqjahag[address] [place], [place] [address]Dr. Farhat Leal PROF 14(COMP METB)on 023 Albumin [Mass/Vol] 2.9 g/dL Critically low 3.4-5.0 [facility] Comment on above: Performed By: #### C MP ####[facility] [address] [place] [address]Dr. Farhat Leal Albumin/Globulin [Mass ratio] 0.9 {ratio} Normal [facility] Comment on above: Performed By: #### C MP ####[facility] Bhbtouvwqi20[address] [place], [place] [address]Dr. Farhat Leal ALP [Catalytic activity/Vol] 67 U/L Normal 46-116 [facility] Comment on above: Performed By: #### C MP ####[facility] M[address]yznhzaoc[address] [place] [address]Dr. Farhat Leal ALT [Catalytic activity/Vol] 15 U/L Critically low 16-63 [facility] Comment on above: Performed By: #### C MP ####[facility] K[address]rr[address]wmo[address] [place] [address]Dr. Farhat Leal Anion gap [Moles/Vol] 10.8 mmol/L Normal Th e [facility] Comment on above: Performed By: #### C MP ####[facility] H[address]owokbih[address] [place], [place] [address]Dr. Farhat Leal AST [Catalytic activity/Vol] 23 U/L Normal 15-37 [facility] Comment on above: Performed By: #### C MP ####[facility] Prvskkbnda[address] [place], [place] [address]Dr. Farhat Leal Bilirubin [Mass/Vol] 0.6 mg/dL Normal 0.2-1.0 [facility] Comment on above: Performed By: #### C MP ####[facility] Xmjvkocbvp[address] [place], [place] [address]Dr. Farhat Leal Calcium [Mass/Vol] 8.7 mg/dL Normal 8.5-10.1 [facility] Comment on above: Performed By: #### C MP ####[facility] Vchalovqjv[address] [place], [place] [address]Dr. Farhat Leal Chloride [Moles/Vol] 105 mmol/L Normal 98-107 [facility] Comment on above: Performed By: #### C MP ####[facility] Thwwcqotar[address] [place], [place] [address]Dr. Farhat Leal CO2 [Moles/Vol] 29.5 mmol/L Normal 21.0-32.0 The [facility] Comment on above: Performed By: #### C MP ####[facility] Dnwhpzoust[address] [place], [place] [address]Dr. Farhat Leal Creatinine [Mass/Vol] 1.37 mg/dL Critically high 0.70-1.30 [facility] Comment on above: Performed By: #### C MP ####[facility] Fhbofqgc[address] [place], [place] [address]Dr. Farhat Elvis EGFR-AF ICELANDIC >60 Normal >=60 [facility] Comment on above: Performed By: #### C MP ####[facility] [address]xulzrf[address] [place] [address]Dr. Farhat Elvis EGFR-NON AF ICELANDIC 50 mL/min/1.73m2 Critically low >=60 [facility] Comment on above: Performed By: #### C MP ####[facility] Cvqmqgzani34[address] [place] [address]Dr. Farhat Elvis Globulin (S) [Mass/Vol] 3.1 g/dL Normal [facility] Comment on above: Performed By: #### C MP ####[facility] Aowdxicsvj[address] [place], [place] [address]Dr. Madelynlorri Elvis Glucose [Mass/Vol] 203 mg/dL Critically high 74-106 [facility] Comment on above: Performed By: #### C MP ####[facility] Hpqbkjhduo4250 [place] [address]Dr. Farhat Leal Potassium [Moles/Vol] 4.3 mmol/L Normal 3.5-5.1 [facility] Comment on above: Performed By: #### C MP ####[facility] Syaumftmhf[address] [place], [place] [address]Dr. Madelynlorri Elvis Protein [Mass/Vol] 6.0 g/dL Critically low 6.4-8.[address] [facility] Comment on above: Performed By: #### C MP ####[facility] Cgcmzaetxj9[address] [place] [address]Dr. Farhat Elvis Sodium [Moles/Vol] 141 mmol/L Normal 136-145 [facility] Comment on above: Performed By: #### C MP ####[facility] Xtgirmz[address] [place], [place] [address]Dr. Farhat Leal Urea nitrogen [Mass/Vol] 65.0 mg/dL Critically high 7.0-18.0 [facility] Comment on above: Performed By: #### C MP ####[facility] I[address]ci[address]lrq[address] [place], [place] [address]Dr. Farhat Leal Urea nitrogen/Creatinine [Mass ratio] 47.4 mg/mg Normal [facility] Comment on above: Performed By: #### C MP ####[facility] [address]tgbzo[address] [place] [address]Dr. Farhat Leal PROTIMEon 04-15-2022 INR Coag (PPP) [Relative time] 3.88 {INR} Normal [facility] Comment on above: Performed By: #### P T ####[facility] R[address]ret[address]xz[address] [place] [address]DrSkylar Farhat Leal INR GUIDELINES SEE BELOW Normal [facility] Comment on above: Result Comment: MALINA RED INR: 2.0 - 3.0 CONDITIONS NOT LISTED BELOW 2.5 - 3.5 FOR PROSTHETIC HEART VALVE REPLACEMENT 2.5 - 3.5 RECURRENT THROMBOSIS Performed By: #### P T ####[facility] [address]fll[address] [place] [address]Dr. Farhat Leal PT Coag (PPP) [Time] 38.1 s Critically high 9.0-11.6 [facility] Comment on above: Performed By: #### P T ####[facility] Emtxy[address]ryg[address] [place] [address]Dr. Farhat Leal Glucose Glucometer (dC) [M ass/Vol]Ordered By: Sadia Aguilar on 04-14-2022 Glucose [Mass/Vol] 162 mg/dL [facility] Comment on above: Random Glucose Refer ence Range is dependent on time and content of last meal. Glucose of more than 200 mg/dL in a nonstressed, ambulatory subject supports the diagnosis of Diabetes Mellitus. Glucose Poct Glucometerson 0 04-14-2022 Commemt1 Glu2: Cleaned Meter Normal [facility] Comment on above: Result Comment: PERF ORMED BY: [facility] [address] [place] [address] PATHOLOGIST WHEAT WASHER JOSE F ELLIOTT M.D. Performed By: #### G LULS #### Point of Care testing , Glucose [Mass/Vol] 162 mg/dL Normal [facility] Comment on above: Result Comment: [place] Glucose Reference Range is dependent on time and content of last meal. Glucose of more than 200 mg/dL in a nonstressed, ambulatory subject supports the diagnosis of Diabetes Mellitus. Performed By: #### G MADY #### Point of Care testing , No Panel InformationOrdered By: Sadia Aguilar on 04-14-2022 Bedside Glucose Comment Glu2: cleaned meter [facility] MAGNESIUMon 04-13-2022 Magnesium [Mass/Vol] 1.7 mg/dL Critically low 1.8-2.4 [facility] Comment on above: Performed By: #### M HENRI Manzo ####[facility] [address] [place] [address]DrSkylar Leal PHOSPHORUSon 04-13-2022 Phosphate [Mass/Vol] 4.8 mg/dL Critically high 2.6-4.7 [facility] Comment on above: Performed By: #### HENRI Winters ####[facility] V[address]qavhpe[address] [place], [place] [address]DrSkylar Leal PROTIMEon 04-13-2022 INR Coag (PPP) [Relative time] 3.16 {INR} Normal [facility] Comment on above: Performed By: #### P T ####[facility] [address] [place], [place] [address]DrSkylar Leal INR GUIDELINES SEE BELOW Normal [facility] Comment on above: Result Comment: MALINA RED INR: 2.0 - 3.0 CONDITIONS NOT LISTED BELOW 2.5 - 3.5 FOR PROSTHETIC HEART VALVE REPLACEMENT 2.5 - 3.5 RECURRENT THROMBOSIS Performed By: #### P T ####[facility] [address]ou[address] [place] [address]DrSkylar Leal PT Coag (PPP) [Time] 31.4 s Critically high 9.0-11.6 [facility] Comment on above: Performed By: #### P T ####[facility] [address]ujinfgc[address] [place], [place] [address]DrSkylar Leal MAGNESIUMon 03-11-2022 Magnesium [Mass/Vol] 1.6 mg/dL Critically low 1.8-2.4 [facility] Comment on above: Performed By: #### M G, PHOS ####[facility] [address] [place], [place] [address]Ck. Farhat Leal PHOSPHORUSon 03-11-2022 Phosphate [Mass/Vol] 5.3 mg/dL Critically high 2.6-4.7 [facility] Comment on above: Performed By: #### M G, PHOS ####[facility] [address] [place], [place] [address]Ua. Farhat Leal CNOVon 02-26-2022 CNOV Office Visit (VASSMN ) ALEX ALMONTE Kate ([id number]) 1945 M TRN Date Time Provider Department 02/26/22 3:00 PM HINA PETERSON During your visit today, we recorded the following information about you: Temperature Pulse Blood pressure 96.6 degrees 75/minute 88/75 Hina Peterson MD, MD 02/26/2022 4:31 PM [facility] [place] DEPARTMENT OF VASCULAR SURGERY OUTPATIENT VISIT DATE [...] his postop visit. He has been in prison since then and has been recovering from his acute on chronic congestive heart failure. His wound has largely been healing without any issues and the maxwell and sutures were removed at the nursing facility. He comes here with a lateral wound eschar. He denies any fevers, chills, or any drainage. He is on anticoagulation. 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 (HCC) 11/29/2021 [...] hyperlipidemia due to type 2 diabetes mellitus ([facility]) 11/29/2021 Osteomyelitis ([facility]) 11/29/2021 Paroxysmal atrial fibrillation ([facility]) Renal transplant, status post SA node dysfunction ([facility]) s/p pacemaker Type 2 diabetes mellitus with diabetic neuropathy, with long-term current use of insulin ([facility]) 02/24/2002 PAST SURGICAL HISTORY Procedure Laterality Date [...] by mouth daily with lunch. Magic Cup Randall with lunch aspirin, enteric coated (ASPIRIN, ENTERIC COATED) 81 mg EC tablet Take 1 tablet by (more content not included)... Normal [facility] PROTIMEon 02-25-2022 INR Coag (PPP) [Relative time] 1.31 {INR} Normal [facility] Comment on above: Performed By: #### P T ####[facility] [address] [place] [address]DrSkylar Leal INR GUIDELINES SEE BELOW Normal [facility] Comment on above: Result Comment: MALINA RED INR: 2.0 - 3.0 CONDITIONS NOT LISTED BELOW 2.5 - 3.5 FOR PROSTHETIC HEART VALVE REPLACEMENT 2.5 - 3.5 RECURRENT THROMBOSIS Performed By: #### P T ####[facility] [address] [place], [place] [address]AqSkylar Farhat Leal PT Coag (PPP) [Time] 13.7 s Critically high 9.0-11.6 [facility] Comment on above: Performed By: #### P T ####[facility] [address] [place], [place] [address]FfSkylar Farhat Elvis Hassan 02-19-2022 CNPN Telephone (TXCTGL) ALEX ALMONTE ([id number]) 1945 M TRN Date Time Provider Department 02/19/22 AUGUSTA MEDRANO TXCTGL During your visit today, we recorded the following information about you: Augusta Medrano RN 02/19/2022 11:16 AM Signed Alex Almonte's nursing facility, [facility], called regarding elevated tacrolimus level (23.9). [...] by mouth daily with lunch. 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 UNCOMPL ADULT-UNCONTRLLED [[id number]] 02/24/2002 KIDNEY TRANSPLANT STATUS [Z94.0] 09/07/2003 PROPHYLACTIC IMMUNOTHERAPY [Z29.8] 07/30/2006 [facility] STEROIDS [PYF0431] 07/30/2006 VITAMIN D DEFICIENCY NOS [E55.9] 09/07/2008 [...] diabetes mellitus with diabetic peripher*11/29/2021 Atherosclerosis of takotna artery of extremity w*11/29/2021 Malnutrition of moderate degree (HCC) [E44.0] 12/01/2021 Dermatitis associated with moisture [L30.8] 12/04/2021 Encounter Status:Closed by AUGUSTA MEDRANO on 02/19/22 [facility] Sonya 02-18-2022 CNPN Telephone (PODCCP) SUZYMINEJESÚS Love ([id number]) 1945 M TRN Date Time Provider Department 02/18/22 DEVON MOREIRA PODREAL During your visit today, we recorded the following information about you: Yumiko Denise 02/18/2022 3:16 PM Signed Reason for call: Mr. Almonte would like to request a sooner appointment with Dr. Peterson than 04/13/2022. Contact Name (if not the patient) Alex's nurse Home and cell number(Ask for Alex's nurse) [phone] Diagnosis 4 mo f/u wound check Best [...] by mouth daily with lunch. 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 Normal [facility] CNOVon 02-05-2022 CNOV Office Visit (TXCTGL ) ALEX ALMONTE ([id number]) 1945 M TRN Date Time Provider Department 02/05/22 8:20 AM [facility] TXP [facility]IN[facility] TXCTGL During your visit today, we recorded the following information about you: Temperature Pulse Blood pressure 96.7 degrees 79/minute 72/42 Asia Pike MD 02/05/2022 9:38 AM Signed [facility] Follow up Portions of this note [...] and snacks patient declined. Indra scale at [facility]: 166.2 lbs per patient. Bed sore on coccyx causing discomfort. Being changed regularly at [facility]- reported to be smaller around but still as deep. Patient not very up to date with medications. Patient brought paperwork from [employer] with all medications being received. Patient unsure if they have been drawing labs regularly. Last Tac from 01/19: 12.9 and K 5.9. In need of current labs. Lab orders will be sent with patient and follows as below: [facility] Pancreas Transplant Standing Lab Orders [address] [place], [place] [address] February 05, 2022 Alex Almonte 1945 [id number] STANDARD TESTING: Diagnosis Codes: Z94.0 Kidney Transplant [...] AT YOUR LABORATORY FACILITY AND FAX TO [phone]. PLEASE CALL [phone]. Provider: Dr. Pike Current Outpatient Medications Medication [...] Take 237 (more content not included)... Normal [facility] PROTEIN CREATININE RATIOon 1 04-08-2021 Protein/Creatinine (U) [Mass ratio] 0.10 mg/mg <0.15 mg/mg [facility] PROTIMEon 02-05-2022 INR Coag (PPP) [Relative time] 2.90 {INR} Normal [facility] Comment on above: Performed By: #### P T ####[facility] [address] [place] [address]DrSkylar Leal INR GUIDELINES SEE BELOW Normal [facility] Comment on above: Result Comment: MALINA RED INR: 2.0 - 3.0 CONDITIONS NOT LISTED BELOW 2.5 - 3.5 FOR PROSTHETIC HEART VALVE REPLACEMENT 2.5 - 3.5 RECURRENT THROMBOSIS Performed By: #### P T ####[facility] [address] [place] [address]Dr. Farhat Leal PT Coag (PPP) [Time] 29.2 s Critically high 9.0-11.6 [facility] Comment on above: Performed By: #### P T ####[facility] [address] [place], [place] [address]GeSkylar Leal Prot/Creat Uron 02-05-2022 Protein/Creatinine (U) [Mass ratio] 0.10 mg/mg Normal <0.15 [facility] Comment on above: Order Comment: Speci men Type: URINE SPECIMENOrdering Facility: [facility] Address: [address] [place] [address] Result Comment: Adul t Proteinuria Categories: <0.15 mg/mg is considered normal to mildly increased 0.15 - 0.50 mg/mg is considered moderately increased >0.50 mg/mg is considered severely increased KDIGO. (2013). KDIGO 2012 Clinical Practice Guideline for the Evaluation and Management of Chronic Kidney Disease. Official Journal of the International Society of Nephrology, 3(1), 1-150. Performed By: #### 2 890-2 ####[facility] LABIA [id number] [place] [address] [place] Protein/Creatinine (U) [Mass ratio]on 02-05-2022 Creatinine (U) [Mass/Vol] 86.9 mg/dL 20.0 - 300.0 mg/dL [facility] Protein (U) [Mass/Vol] 9 mg/dL 0 - 20 mg/dL [facility] Creatinine (U) [Mass/Vol] 86.9 mg/dL Normal 20.0-300.0 [facility] Comment on above: Order Comment: Speci men Type: URINE SPECIMENOrdering Facility: [facility] Address: [address] [id number] Performed By: #### 2 890-2 ####[facility] [id number] [place] [address] [place] Protein (U) [Mass/Vol] 9 mg/dL Normal 0-20 [facility] Comment on above: Order Comment: Speci men Type: URINE SPECIMENOrdering Facility: [facility] Address: [address] Performed By: #### 2 890-2 ####[facility] LABCLIA [id number] [place] [address] [place] URINALYSIS, DIPSTICK ONLYon 02-05-2022 Bilirubin Ql (U) Negative Normal Negative [facility] Comment on above: Order Comment: Speci men Type: URINE SPECIMEN Ordering Facility: [facility] Address: [address] [place] [address] Performed By: #### U A #### [facility] CLIA [id number] [address] [place] [address] [place] Clarity (Unsp spec) Clear Normal Clear [facility] Comment on above: Order Comment: Speci men Type: URINE SPECIMEN Ordering Facility: [facility] Address: [address] [place] [address] Performed By: #### U A #### [facility] CLIA [id number] [address] [place] [address] [place] Color (U) Yellow Normal Yellow [facility] Comment on above: Order Comment: Speci men Type: URINE SPECIMEN Ordering Facility: [facility] Address: [address] [place] [address] Performed By: #### U A #### [facility] CLIA [id number] [address] [place] [address] [place] Glucose Test strip (U) [Mass/Vol] 3+ Abnormal Trace, Negative [facility] Comment on above: Order Comment: Speci men Type: URINE SPECIMEN Ordering Facility: [facility] Address: [address] [place], [place] [address] Performed By: #### U A #### [facility] CLIA [id number] [address] [place] [address] [place] Hemoglobin Ql (U) Negative Normal Negative, Trace [facility] Comment on above: Order Comment: Speci men Type: URINE SPECIMEN Ordering Facility: [facility] Address: [address] [address] Performed By: #### U A #### [facility] CLIA [id number] [address] [place] [address] [place] Ketones Ql (U) Trace Normal Negative, Trace [facility] Comment on above: Order Comment: Speci men Type: URINE SPECIMEN Ordering Facility: [facility] Address: [address] [address] Performed By: #### U A #### [facility] CLIA [id number] [address] [place] [address] [place] Leukocyte esterase Test strip Ql (U) Negative Normal Negative, 25 Loraine/mL [facility] Comment on above: Order Comment: Speci men Type: URINE SPECIMEN [facility] [facility] Address: [address] [place] [address] Performed By: #### U A #### [facility] CLIA [id number] [address] [place] [address] [place] Nitrite Ql (U) Negative Normal Negative [facility] Comment on above: Order Comment: Speci men Type: URINE SPECIMEN Ordering Facility: [facility] Address: [address] [place] [address] Performed By: #### U A #### [facility] CLIA [id number] [address] [place] [address] [place] pH (U) 5.5 [pH] Normal 5.0-8.0 [facility] Comment on above: Order Comment: Speci men Type: URINE SPECIMEN Ordering Facility: [facility] Address: [address] [place] [address] Performed By: #### U A #### [facility] CLIA [id number] [address] [place] [address] [place] Protein (U) [Mass/Vol] Negative Normal Trace , Negative [facility] Comment on above: Order Comment: Speci men Type: URINE SPECIMEN Ordering Facility: [facility] Address: [address] [place] [address] Performed By: #### U A #### [facility] CLIA [id number] [facility] [address] [place] Specific gravity (U) [Rel density] 1.014 Normal 1.005-1.030 [facility] Comment on above: Order Comment: Speci men Type: URINE SPECIMEN Ordering Facility: [facility] Address: [address] [place] [address] Performed By: #### U A #### [facility] CLIA [id number] [address] [place] [address] [place] Urobilinogen Ql (U) 1+ Abnormal Negative [facility] Comment on above: Order Comment: Speci men Type: URINE SPECIMEN Ordering Facility: [facility] Address: [address] [place] [address] Performed By: #### U A #### [facility] CLIA [id number] [address] [place] [address] [place] Bilirubin Ql (U) Negative Negative [facility] Clarity (Unsp spec) Clear [facility] Color (U) Yellow [facility] Glucose Test strip (U) [Mass/Vol] 3+ Abnormal Trace, Negative [facility] Hemoglobin Ql (U) Negative Negative, Trace [facility] Ketones Ql (U) Trace Negative, Trace [facility] Leukocyte esterase Test strip Ql (U) Negative Negative, 25 Loraine/mL [facility] Nitrite Ql (U) Negative Negative [facility] pH (U) 5.5 [pH] 5.0 - 8.0 [facility] Protein (U) [Mass/Vol] Negative Trace , Negative [facility] Specific gravity (U) [Rel density] 1.014 1.005 - 1.030 [facility] Urobilinogen Ql (U) 1+ Abnormal Negative [facility] FK506 (TACROLIMUS) WHOLE BLO ODon 12-15-2022 Tacrolimus (FK506), Blood 11.1 ng/mL Normal 2.0-20.0 [facility] Comment on above: Result Comment: Trou gh (immediately following transplant) 15.0 . Trough (steady state, 2 weeks or more after transplant): 3.0 - 8.0 . Performed by LC-MS/MS technology. Performed By: #### F K506T ####[facility] [address] [place] [address]Dr. Farhat Leal PHOSPHORUSon 01-26-2022 Phosphate [Mass/Vol] 4.1 mg/dL Normal 2.6-4.7 [facility] Comment on above: Performed By: #### C CARA, PHOS ####[facility] Urmyzpqpsu[address] [place], [place] [address]Dr. Farhat Leal PROF 14(COMP METB)on 022 Albumin [Mass/Vol] 2.1 g/dL Critically low 3.4-5.0 [facility] Comment on above: Performed By: #### C CARA, PHOS ####[facility] D[address]czj[address] [place], [place] [address]Dr. Farhat Leal Albumin/Globulin [Mass ratio] 0.6 {ratio} Normal [facility] Comment on above: Performed By: #### C CARA, PHOS ####[facility] Hmxahauwkk[address] [place], [place] [address]Dr. Farhat Leal ALP [Catalytic activity/Vol] 89 U/L Normal 46-116 [facility] Comment on above: Performed By: #### C CARA, PHOS ####[facility] Jcrzgmdajy[address] [place], [place] [address]Dr. Farhat Leal ALT [Catalytic activity/Vol] 27 U/L Normal 16-63 [facility] Comment on above: Performed By: #### C CARA, PHOS ####[facility] Ryvcierzos[address] [place], [place] [address]Dr. Farhat Leal Anion gap [Moles/Vol] 12.3 mmol/L Normal [facility] Comment on above: Performed By: #### C CARA, PHOS ####[facility] V[address]ptulgrx[address] [place] [phone]. Farhat Leal AST [Catalytic activity/Vol] 53 U/L Critically high 15-37 [facility] Comment on above: Performed By: #### C MP, PHOS ####[facility] Dmlbmsenzi[address] [place] [phone]. Farhat Leal Bilirubin [Mass/Vol] 0.6 mg/dL Normal 0.2-1.0 [facility] Comment on above: Performed By: #### C MP, PHOS ####[facility] Zcragacowa[address] [place] [address]Dr. Farhat Leal Calcium [Mass/Vol] 8.0 mg/dL Critically low 8.5-10.1 Th e [facility] Comment on above: Performed By: #### C CARA, PHOS ####[facility] Yipbkyjawa[address] [place], [place] [address]Dr. Farhat Leal Chloride [Moles/Vol] 97 mmol/L Critically low 98-107 [facility] Comment on above: Performed By: #### C CARA, PHOS ####[facility] Fmsppmmder16[address] [place], [place] [address]Dr. Farhat Leal CO2 [Moles/Vol] 26.6 mmol/L Normal 21.0-32.0 [facility] Comment on above: Performed By: #### C CARA, PHOS ####[facility] Tgahmowyve[address] [place], [place] [address]Dr. Farhat Leal Creatinine [Mass/Vol] 1.03 mg/dL Normal 0.70-1.30 [facility] Comment on above: Performed By: #### C CARA, PHOS ####[facility] Pu[address]qyj[address] [place] [address]Dr. Farhat Leal EGFR-AF ICELANDIC >60 Normal >=60 [facility] Comment on above: Performed By: #### C MP, PHOS ####[facility] Cxdcptznst4561 [place] [address]Dr. Farhat Leal EGFR-NON AF ICELANDIC >60 Normal >=60 [facility] Comment on above: Performed By: #### C MP, PHOS ####[facility] Eazjqqqxgm[address] [place] [address]Dr. Farhat Leal Globulin (S) [Mass/Vol] 3.7 g/dL Normal [facility] Comment on above: Performed By: #### C MP, PHOS ####[facility] Qabqubnb[address] [place] [address]Dr. Farhat Leal Glucose [Mass/Vol] 287 mg/dL Critically high 74-106 [facility] Comment on above: Performed By: #### C MP, PHOS ####[facility] Skozuzzmwz[address] [place], [place] [address]Dr. Farhat Leal Potassium [Moles/Vol] 3.9 mmol/L Normal 3.5-5.1 [facility] Comment on above: Performed By: #### C CARA, PHOS ####[facility] Jszwnuymyr[address] [place], [place] [address]Dr. Farhat Leal Protein [Mass/Vol] 5.8 g/dL Critically low 6.4-8.[address] [facility] Comment on above: Performed By: #### C CARA, PHOS ####[facility] Ohinejhdjl[address] [place], [place] [address]Dr. Farhat Leal Sodium [Moles/Vol] 132 mmol/L Critically low 136-[address] [facility] Comment on above: Performed By: #### C MP, PHOS ####[facility] Zhbhgxhyod[address] [place], [place] [address]Dr. Farhat Leal Urea nitrogen [Mass/Vol] 23.0 mg/dL Critically high 7.0-18.0 [facility] Comment on above: Performed By: #### C MP, PHOS ####[facility] [address]xrzycq[address] [place], [place] [address]Dr. Farhat Leal Urea nitrogen/Creatinine [Mass ratio] 22.3 mg/mg Normal [facility] Comment on above: Performed By: #### C MP, PHOS ####[facility] Eqkbzsbsad[address] [place], [place] [address]Dr. Farhat Elvis FK506 (TACROLIMUS) WHOLE BLO ODon 12-07-2022 Tacrolimus (FK506), Blood 12.2 ng/mL Normal 2.0-20.0 [facility] Comment on above: Result Comment: Trou gh (immediately following transplant) 15.0 . Trough (steady state, 2 weeks or more after transplant): 3.0 - 8.0 . Performed by LC-MS/MS technology. Performed By: #### F K506T ####[facility] [address]xyzig[address] [place] [phone]. Farhat Leal ACID FAST SMEAR AND CXon Acid Fast Culture Negative Normal [facility] Comment on above: Result Comment: No a abdiel fast bacilli isolated after 6 weeks. Performed By: #### A FB ####[facility] [address] [place] [phone]. Farhat Leal Acid Fast Smear Negative Normal The [facility] Comment on above: Performed By: #### A FB ####[facility] Ex[address]qs[address] [place] [address]Dr. Farhat Leal [employer] Specimen Processing Tissue Grinding Normal [facility] Comment on above: Performed By: #### A FB ####[facility] [address] [place] [phone]. Farhat Hassan 01-20-2022 [place] Telephone (KIMBERLY) ALEX ALMONTE ([id number]) 1945 M TRN Date Time Provider Department 01/20/22 VAN OLIVAREZ During your visit today, we recorded the following information about you: Van Olivarez APRN.DIAMANTE 01/20/2022 1:14 PM Signed Labs noted from yesterday. Pt is currently residing at [facility], I spoke with the Nurse, the results has been addressed by Physician caring for pt. He had been placed on Chlor Con and this has been discontinued and hyperkalemia has been treated. Van Olivarez APRN.BOOKKEEPING MACHINE MECHANIC Allergies As of Date: 01/20/2022 Noted Allergy Reaction PYRIDOSTIGMINE BROMIDE 08/04/2021 8 - GI Upset Date Reviewed: 01/15/2022 Reviewed by: Raquel Tai APRN.BOOKKEEPING MACHINE MECHANIC - Fully Assessed Reason for Visit: Results [...] by mouth daily with lunch. 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 Comment on above: Performed By: #### C MP ####[facility] [address]ra[address] [place] [address]Dr. Farhat Leal Albumin/Globulin [Mass ratio] 0.5 {ratio} Normal [facility] Comment on above: Performed By: #### C MP ####[facility] X[address]kh[address] [place] [address]Dr. Farhat Leal ALP [Catalytic activity/Vol] 78 U/L Normal 46-116 [facility] Comment on above: Performed By: #### C MP ####[facility] S[address]msvexww2[address] [place] [address]DrSkylar Leal ALT [Catalytic activity/Vol] 22 U/L Normal 16-63 [facility] Comment on above: Performed By: #### C MP ####[facility] J[address]amijoamd8[address] [place] [address]Dr. Farhat Leal Anion gap [Moles/Vol] 8.0 mmol/L Normal [facility] Comment on above: Performed By: #### C MP ####[facility] [address]kvks[address] [place] [phone]. Farhat Leal AST [Catalytic activity/Vol] 92 U/L Critically high 15-37 [facility] Comment on above: Performed By: #### C MP ####[facility] Ixfsptgcfo6[address] [place] [phone]. Farhat Leal Bilirubin [Mass/Vol] 0.7 mg/dL Normal 0.2-1.0 [facility] Comment on above: Performed By: #### C MP ####[facility] Rganfwfebv[address] [place] [phone]. Farhat Leal Calcium [Mass/Vol] 7.8 mg/dL Critically low 8.5-10.1 Th e [facility] Comment on above: Performed By: #### C MP ####[facility] Srbiqzoply[address] [place], [place] [address]Dr. Farhat Leal Chloride [Moles/Vol] 99 mmol/L Normal 98-107 [facility] Comment on above: Performed By: #### C MP ####[facility] G[address]rypewjb[address] [place], [place] [address]Dr. Farhat Leal CO2 [Moles/Vol] 30.9 mmol/L Normal 21.0-32.0 [facility] Comment on above: Performed By: #### C MP ####[facility] C[address]teuqryu[address] [place], [place] [address]Dr. Farhat Leal Creatinine [Mass/Vol] 0.95 mg/dL Normal 0.70-1.30 [facility] Comment on above: Performed By: #### C MP ####[facility] [address]jnohhw[address] [place] [phone]. Farhat Elvis EGFR-AF ICELANDIC >60 Normal >=60 [facility] Comment on above: Performed By: #### C MP ####[facility] [address]kesaqv54[address] [place] [phone]. Farhat Elvis EGFR-NON AF ICELANDIC >60 Normal >=60 [facility] Comment on above: Performed By: #### C MP ####[facility] Llhirvaywe8[address] [place] [phone]. Farhat Leal Globulin (S) [Mass/Vol] 3.9 g/dL Normal [facility] Comment on above: Performed By: #### C MP ####[facility] Jjepkjvtsw40[address] [place] [phone]. Farhat Leal Glucose [Mass/Vol] 124 mg/dL Critically high 74-106 [facility] Comment on above: Performed By: #### C MP ####[facility] Tahlmgsexj[address] [place] [address]Dr. Farhat Leal Potassium [Moles/Vol] 5.9 mmol/L Critically high 3.5-5.1 [facility] Comment on above: Performed By: #### C MP ####[facility] Cpsmtybpoo0207 [place] [address]Dr. Farhat Leal Protein [Mass/Vol] 5.8 g/dL Critically low 6.4-8.[address] [facility] Comment on above: Performed By: #### C MP ####[facility] Jqkffzenjt7070 [place] [address]Dr. Farhat Leal Sodium [Moles/Vol] 132 mmol/L Critically low 136-[address] [facility] Comment on above: Performed By: #### C MP ####[facility] Iiwpqlzpff1823 [place] [address]Dr. Farhat Leal Urea nitrogen [Mass/Vol] 18.0 mg/dL Normal 7.0-18.0 [facility] Comment on above: Performed By: #### C MP ####[facility] Dxpxvhgviu9461 [place] [address]Dr. Farhat Leal Urea nitrogen/Creatinine [Mass ratio] 18.9 mg/mg Normal [facility] Comment on above: Performed By: #### C MP ####[facility] Inkaiwdpio0[address] [place], [place] [address]Dr. Farhat Leal INR (POC)on 01-12-2022 INR Coag (PPP) [Relative time] 2.6 {INR} High 0.8 - 1.2 [facility] Internal Quality Check Acceptable Cl [facility] ACID FAST SMEAR AND CXon Acid Fast Culture Negative Normal [facility] Comment on above: Result Comment: No a abdiel fast bacilli isolated after 6 weeks. Performed By: #### A FB ####[facility] Yfqnslsnwm[address] [place] [phone]. Farhat Leal Acid Fast Smear Negative Normal [facility] Comment on above: Performed By: #### A FB ####[facility] [address]fqnlkqodr[address] [place], [place] [address]Dr. Farhat Leal [employer] Specimen Processing Direct Inoculation [facility] Comment on above: Performed By: #### A FB ####[facility] G[address]mrmeqt[address] [place], [place] [address]Dr. Farhat Leal ACID FAST SMEAR AND CXon Acid Fast Culture Negative Normal [facility] Comment on above: Result Comment: No a abdiel fast bacilli isolated after 6 weeks. Performed By: #### A FB ####[facility] Qtchwiaidw[address] [place], [place] [address]Dr. Farhat Leal Acid Fast Smear Negative Normal [facility] Comment on above: Performed By: #### A FB ####[facility] Qfmkartmda[address] [place], [place] [address]Dr. Farhat Leal [employer] Specimen Processing Tissue Grinding [facility] Comment on above: Performed By: #### A FB ####[facility] Nfhsdylwem[address] [place], [place] [address]Dr. Farhat Leal FUNGAL CULTUREon 01-02-2022 Fungus (Mycology) Culture Final report Normal [facility] Comment on above: Performed By: #### C XFUN ####[facility] Ztkianyert[address] [place], [place] [address]Dr. Farhat Leal Fungus Stain Final report Normal [facility] Comment on above: Performed By: #### C XFUN ####[facility] Bslossaige[address] [place], [place] [address]Dr. Farhat Leal Result 1 Comment Normal [facility] Comment on above: Result Comment: ANNI/ Calcofluor preparation: no fungus observed. Performed By: #### C XFUN ####[facility] [address] [place] [address]. Farhat Leal Result Comment: No y east or mold isolated after 4 weeks. FK506 (TACROLIMUS) WHOLE BLO ODon 12-31-2021 Tacrolimus (FK506), Blood 7.7 ng/mL Normal 2.0-20.0 [facility] Comment on above: Result Comment: Trou gh (immediately following transplant) 15.0 . Trough (steady state, 2 weeks or more after transplant): 3.0 - 8.0 . Performed by LC-MS/MS technology. Performed By: #### F K506T ####[facility] [address] [place] [address]. Farhat Leal HEMOGRAM AND PLATELon 2021 Hematocrit (Bld) [Volume fraction] 27.1 % Critically low 42.0-54.0 [facility] Comment on above: Performed By: #### H H ####[facility] [address] [place] [address]. Farhat Leal Hemoglobin (Bld) [Mass/Vol] 8.7 g/dL Critically low 14.0-18.0 [facility] Comment on above: Performed By: #### H H ####[facility] [address] [place] [address]. Farhat Leal MCH (RBC) [Entitic mass] 30.3 pg Normal 25.9-34.0 [facility] Comment on above: Performed By: #### H H ####[facility] [address]fe[address]xte[address] [place] [address]. Farhat Leal MCHC (RBC) [Mass/Vol] 32.1 g/dL Normal 29.9-35.2 [facility] Comment on above: Performed By: #### H H ####[facility] [address] [place] [address]. Farhat Leal MCV (RBC) [Entitic vol] 94.4 fL Critically high 80.0-94.0 [facility] Comment on above: Performed By: #### H H ####[facility] Sotohospgo[address] [place] [phone]. Farhat Leal PLT 355 103/ul Normal 150-450 [facility] Comment on above: Performed By: #### H H ####[facility] Az[address]gbky[address] [place] [address]Dr. Farhat Leal RBC 2.87 106/ul Critically low 4.70-6.10 [facility] Comment on above: Performed By: #### H H ####[facility] Rrcdneeygi4[address] [place] [address]Dr. Farhat Leal WBC 6.0 103/ul Normal 4.0-11.0 [facility] Comment on above: Performed By: #### H H ####[facility] Tjqcyiyjla[address] [place] [address]Dr. Farhat Leal PHOSPHORUSon 12-29-2021 Phosphate [Mass/Vol] 2.5 mg/dL Critically low 2.6-4.7 [facility] Comment on above: Performed By: #### P HOS, CMP ####[facility] Cbyxjtjgpp[address] [place], [place] [address]Dr. Farhat Elvis PROF 14(COMP METB)on 022 Albumin [Mass/Vol] 1.7 g/dL Critically low 3.4-5.0 [facility] Comment on above: Performed By: #### P HOS, CMP ####[facility] [address]fahbv4[address] [place] [address]Dr. Farhat Leal Albumin/Globulin [Mass ratio] 0.5 {ratio} Normal [facility] Comment on above: Performed By: #### P HOS, CMP ####[facility] Tyvdtbearq8993 [place] [address]Dr. Farhat Leal ALP [Catalytic activity/Vol] 78 U/L Normal 46-116 [facility] Comment on above: Performed By: #### P HOS, CMP ####[facility] Yfwddbspfr7359 [place] [address]Dr. Farhat Elvis ALT [Catalytic activity/Vol] 12 U/L Critically low 16-63 [facility] Comment on above: Performed By: #### P HOS, CMP ####[facility] Zjmhheaewl[address] [place] [phone]. Farhat Leal Anion gap [Moles/Vol] 5.1 mmol/L Normal [facility] Comment on above: Performed By: #### P HOS, CMP ####[facility] Dffogicrgi0629 [place] [address]Dr. Farhat Leal AST [Catalytic activity/Vol] 22 U/L Normal 15-37 [facility] Comment on above: Performed By: #### P HOS, CMP ####[facility] Mtpbgquusg[address] [place], [place] [address]Dr. Farhat Leal Bilirubin [Mass/Vol] 0.6 mg/dL Normal 0.2-1.0 [facility] Comment on above: Performed By: #### P HOS, CMP ####[facility] Rrfqfjttxy[address] [place], [place] [address]Dr. Farhat Leal Calcium [Mass/Vol] 8.1 mg/dL Critically low 8.5-10.[address] [facility] Comment on above: Performed By: #### P HOS, CMP ####[facility] Favlcolcxa[address] [place], [place] [address]Dr. Frahat Leal Chloride [Moles/Vol] 100 mmol/L Normal 98-107 [facility] Comment on above: Performed By: #### P HOS, CMP ####[facility] Svtrjwesli[address] [place], [place] [address]Dr. Farhat Leal CO2 [Moles/Vol] 34.2 mmol/L Critically high 21.0-32.0 [facility] Comment on above: Performed By: #### P HOS, CMP ####[facility] Fqbupwiwsa[address] [place], [place] [address]Dr. Farhat Leal Creatinine [Mass/Vol] 0.92 mg/dL Normal 0.70-1.30 [facility] Comment on above: Performed By: #### P HOS, CMP ####[facility] Ibmiruigxt[address] [place], [place] [address]Dr. Farhat Leal EGFR-AF ICELANDIC >60 Normal >=60 [facility] Comment on above: Performed By: #### P HOS, CMP ####[facility] Fczihgzmec80[address] [place] [phone]. Farhat Leal EGFR-NON AF ICELANDIC >60 Normal >=60 [facility] Comment on above: Performed By: #### P HOS, CMP ####[facility] Ovjywzvnhq7452 [place] [phone]. Farhat Leal Globulin (S) [Mass/Vol] 3.3 g/dL Normal [facility] Comment on above: Performed By: #### P HOS, CMP ####[facility] Nmhuevseva3865 [place] [address]Dr. Farhat Leal Glucose [Mass/Vol] 116 mg/dL Critically high 74-106 [facility] Comment on above: Performed By: #### P HOS, CMP ####[facility] Vuhejxbxlh1959 [place] [address]Dr. Farhat Leal Potassium [Moles/Vol] 3.3 mmol/L Critically low 3.5-5.1 [facility] Comment on above: Performed By: #### P HOS, CMP ####[facility] J[address]hcrgdil[address] [place], [place] [address]Dr. Frahat Leal Protein [Mass/Vol] 5.0 g/dL Critically low 6.4-8.[address] [facility] Comment on above: Performed By: #### P HOS, CMP ####[facility] Tmhppygxjx[address] [place], [place] [address]Dr. Farhat Leal Sodium [Moles/Vol] 136 mmol/L Normal 136-145 [facility] Comment on above: Performed By: #### P HOS, CMP ####[facility] Qwkxdfexkj0931 [place] [address]Dr. Farhat Leal Urea nitrogen [Mass/Vol] 14.0 mg/dL Normal 7.0-18.0 [facility] Comment on above: Performed By: #### P HOS, CMP ####[facility] Wekyypdxfa6334 [place] [phone]. Farhat Leal Urea nitrogen/Creatinine [Mass ratio] 15.2 mg/mg Normal [facility] Comment on above: Performed By: #### P HOS, CMP ####[facility] Pmtxngphut[address] [place], [place] [address]Dr. Farhat Leal PROTIMEon 12-29-2021 INR Coag (PPP) [Relative time] 1.26 {INR} Normal [facility] Comment on above: Performed By: #### P T ####[facility] Vlrrpsrscz[address] [place], [place] [address]Dr. Farhat Leal INR GUIDELINES SEE BELOW Normal [facility] Comment on above: Result Comment: MALINA RED INR: 2.0 - 3.0 CONDITIONS NOT LISTED BELOW 2.5 - 3.5 FOR PROSTHETIC HEART VALVE REPLACEMENT 2.5 - 3.5 RECURRENT THROMBOSIS Performed By: #### P T ####[facility] Gjsboiqody[address] [place], [place] [address]Dr. Farhat Leal PT Coag (PPP) [Time] 13.4 s Critically high 9.0-11.6 [facility] Comment on above: Performed By: #### P T ####[facility] Gciwffbwrn[address] [place], [place] [address]Dr. Farhat Leal XR MODIFIED BARIUM SWALLOWon 12-25-2021 XR MODIFIED BARIUM SWALLOW Normal [facility] FUNGAL CULTUREon 12-24-2021 Fungus (Mycology) Culture Final report Normal [facility] Comment on above: Performed By: #### C XFUN ####[facility] Bgshpnmath4826[address] [place], [place] [address]Dr. Farhat Leal Fungus Stain Final report Normal The [facility] Comment on above: Performed By: #### C XFUN ####[facility] Khzgzwqyrw[address] [place], [place] [address]Dr. Farhat Leal Result 1 Comment Normal [facility] Comment on above: Result Comment: ANNI/ Calcofluor preparation: no fungus observed. Performed By: #### C XFUN ####[facility] Ebqwgnfwfe[address] [place], [place] [address]DrSkylar Leal Result Comment: No y east or mold isolated after 4 weeks. VANCOMYCIN TROUGHon 12-21-19 VANCOMYCIN TROUGH 14.4 ug/ml Normal 5.0-20.0 The [facility] Comment on above: Performed By: #### V ANCT ####[facility] [address] [place] [address]Dr. Farhat Leal CBC AUTO DIFFon 12-14-2021 BASO # 0.0 103/ul Normal 0.0-0.1 [facility] Comment on above: Performed By: #### C BC ####[facility] Lragkpbejq[address] [place], [place] [address]Dr. Farhat Elvis Basophils/100 WBC (Bld) 0.2 % Normal 0.2-2.0 [facility] Comment on above: Performed By: #### C BC ####[facility] Xhvtjfgphx[address] [place], [place] [address]Dr. Farhat Leal EO # 0.2 103/ul Normal 0.0-0.7 [facility] Comment on above: Performed By: #### C BC ####[facility] Betstpelnn4[address] [place], [place] [address]Dr. Fahrat Elvis Eosinophils/100 WBC (Bld) 2.1 % Normal 0.9-7.0 [facility] Comment on above: Performed By: #### C BC ####[facility] Xtsacaqdeh8[address] [place], [place] [address]Dr. Farhat Leal Erythrocyte distribution width (RBC) [Ratio] 18.2 % Critically high 11.0-15.0 [facility] Comment on above: Performed By: #### C BC ####[facility] Wrklumfmmv[address] [place], [place] [address]Dr. Farhat Leal Hematocrit (Bld) [Volume fraction] 25.8 % Critically low 42.0-54.0 [facility] Comment on above: Performed By: #### C BC ####[facility] Kujxkyhhdn[address] [place], [place] [address]Dr. Farhat Leal Hemoglobin (Bld) [Mass/Vol] 8.0 g/dL Critically low 14.0-18.0 [facility] Comment on above: Performed By: #### C BC ####[facility] [address] [place] [id number]. Farhat Leal IG # 0.08 10e3/ul Critically high 0.00-0.03 The [facility] Comment on above: Performed By: #### C BC ####[facility] Fe[address] [place] [address]Dr. Farhat Leal IG % 0.7 % Critically high 0.0-0.5 The [facility] Comment on above: Performed By: #### C BC ####[facility] V[address]jadrrenz[address] [place] [address]Dr. aFrhat Elvis LYMPH # 0.9 103/ul Critically low 1.2-3.8 The [facility] Comment on above: Performed By: #### C BC ####[facility] Ceeagcwprg[address] [place] [address]Dr. Farhat Elvis Lymphocytes/100 WBC (Bld) 8.7 % Critically low 20.5-60.0 [facility] Comment on above: Performed By: #### C BC ####[facility] Siairmlodt[address] [place] [address]Dr. Farhat Leal MANUAL DIFF REQ NO Normal The [facility] Comment on above: Performed By: #### C BC ####[facility] Fbnnncyjba4[address] [place] [address]Dr. Farhat Leal MCH (RBC) [Entitic mass] 30.0 pg Normal 25.9-34.0 [facility] Comment on above: Performed By: #### C BC ####[facility] Vikwohwxfy3[address] [place], [place] [address]Dr. Farhat Leal MCHC (RBC) [Mass/Vol] 31.0 g/dL Normal 29.9-35.2 [facility] Comment on above: Performed By: #### C BC ####[facility] Paldfynzjf23[address] [place], [place] [address]DrSkylar Farhat Leal MCV (RBC) [Entitic vol] 96.6 fL Critically high 80.0-94.0 The [facility] Comment on above: Performed By: #### C BC ####[facility] Luzzwcdskn[address] [place] [id number]. Farhat Leal MONO # 0.7 103/ul Normal 0.3-0.8 [facility] Comment on above: Performed By: #### C BC ####[facility] Lmrgjgrybz[address] [place] [address]Dr. Farhat Leal Monocytes/100 WBC (Bld) 6.7 % Normal 1.7-12.0 [facility] Comment on above: Performed By: #### C BC ####[facility] Rqhufedopm[address] [place], [place] [address]Dr. Farhat Leal NEUT # 8.8 103/ul Critically high 1.4-6.5 The [facility] Comment on above: Performed By: #### C BC ####[facility] Iuulipidkz69[address] [place], [place] [address]Dr. Farhat Leal Neutrophils/100 WBC (Bld) 81.6 % Critically high 43.0-75.0 [facility] Comment on above: Performed By: #### C BC ####[facility] Trvtyxcmmh04[address] [place], [place] [address]Dr. Farhat Leal Platelet mean volume (Bld) [Entitic vol] 10.5 fL Normal 9.5-13.5 [facility] Comment on above: Performed By: #### C BC ####[facility] Hglzzuanil9116[address] [place], [place] [address]Dr. Farhat Leal PLT 285 103/ul Normal 150-450 [facility] Comment on above: Performed By: #### C BC ####[facility] Ndcpkubeul44[address] [place], [place] [address]Dr. Farhat Leal RBC 2.67 106/ul Critically low 4.70-6.10 The [facility] Comment on above: Performed By: #### C BC ####[facility] Ztgbfqyqer[address] [place], [place] [address]Dr. Farhat Leal WBC 10.7 103/ul Normal 4.0-11.0 [facility] Comment on above: Performed By: #### C BC ####[facility] Lmsogusdmi[address] [place], [place] [address]Dr. Farhat Leal PROF CHEM 8 (BAS METB)on Anion gap [Moles/Vol] 12.4 mmol/L Normal [facility] Comment on above: Performed By: #### B MP ####[facility] Mqr[address]dru[address] [place] [address]Dr. Madelynlorri Elvis Calcium [Mass/Vol] 7.8 mg/dL Critically low 8.5-10.1 [facility] Comment on above: Performed By: #### B MP ####[facility] Htwgjozhwm[address] [place] [address]Dr. Farhat Leal Chloride [Moles/Vol] 102 mmol/L Normal 98-107 [facility] Comment on above: Performed By: #### B MP ####[facility] Ggrausjama[address] [place] [address]Dr. Farhat Leal CO2 [Moles/Vol] 28.1 mmol/L Normal 21.0-32.0 [facility] Comment on above: Performed By: #### B MP ####[facility] Haqktedzso[address] [place], [place] [address]Dr. Farhat Leal Creatinine [Mass/Vol] 1.24 mg/dL Normal 0.70-1.30 [facility] Comment on above: Performed By: #### B MP ####[facility] Neukuxlmsr[address] [place], [place] [address]Dr. Farhat Leal EGFR-AF ICELANDIC >60 Normal >=60 [facility] Comment on above: Performed By: #### B MP ####[facility] Uflnibtygz[address] [place] [address]Dr. Farhat Leal EGFR-NON AF ICELANDIC 57 mL/min/1.73m2 Critically low >=60 [facility] Comment on above: Performed By: #### B MP ####[facility] Nucptkdbab3[address] [place], [place] [address]Dr. Farhat Leal Glucose [Mass/Vol] 296 mg/dL Critically high 74-106 [facility] Comment on above: Performed By: #### B MP ####[facility] V[address]wtfthc[address] [place], [place] [address]Dr. Farhat Leal Potassium [Moles/Vol] 3.5 mmol/L Normal 3.5-5.1 [facility] Comment on above: Performed By: #### B MP ####[facility] I[address]lso[address] [place] [address]Dr. Farhat Leal Sodium [Moles/Vol] 139 mmol/L Normal 136-145 The [facility] Comment on above: Performed By: #### B MP ####[facility] Spqxtcv[address]po[address] [place] [address]Dr. Farhat Leal Urea nitrogen [Mass/Vol] 27.0 mg/dL Critically high 7.0-18.0 [facility] Comment on above: Performed By: #### B MP ####[facility] Wjeagtsnnl[address] [place], [place] [address]Dr. Farhat Leal Urea nitrogen/Creatinine [Mass ratio] 21.8 mg/mg Normal [facility] Comment on above: Performed By: #### B MP ####[facility] Gpxpbeagij[address] [place], [place] [address]Dr. Farhat Leal PROTIMEon 12-14-2021 INR Coag (PPP) [Relative time] 3.36 {INR} Normal [facility] Comment on above: Performed By: #### P T ####[facility] Xvjcbssell[address] [place], [place] [address]Dr. Farhat Leal INR GUIDELINES SEE BELOW Normal The [facility] Comment on above: Result Comment: MALINA RED INR: 2.0 - 3.0 CONDITIONS NOT LISTED BELOW 2.5 - 3.5 FOR PROSTHETIC HEART VALVE REPLACEMENT 2.5 - 3.5 RECURRENT THROMBOSIS Performed By: #### P T ####[facility] Rzjtsflssi8[address] [place], [place] [address]Dr. Farhat Leal PT Coag (PPP) [Time] 33.5 s Critically high 9.0-11.6 The [facility] Comment on above: Performed By: #### P T ####[facility] P[address]fb[address]kprl[address] [place], [place] [address]Dr. Farhat Leal XR CHEST 1 Von 12-14-2021 XR CHEST 1 V Normal [facility] No Panel Informationon 12-01 BLANK _ [facility] Implant Date 04/22/2012 [facility] CHECKon AMS Duration (ms) 5 of 8 [facility] AMS Fallback Rate (bpm) DDIR [facility] AV Delay Adaptive Paced Minimum (ms) 300 ms [facility] AV Delay Adaptive Rate Maximum (bpm) 130 {beats}/min [facility] AV Delay Adaptive Rate Minimum (bpm) 70 {beats}/min [facility] AV Delay Adaptive Sensed Minimum (ms) 300 ms [facility] AV Delay Paced (ms) 300 ms [facility] AV Delay Sensed (ms) 300 ms [facility] Jaciel LV Pacing Polarity Unknown [facility] Jaciel LV Sensing Polarity Unknown [facility] Jaciel RA Pacing Amplitude (volts) 2.4 V [facility] Jaciel RA Pacing Polarity BI [facility] Jaciel RA Pacing Pulse Width (ms) 0.4 ms [facility] Jaciel RA Sensing Amplitude (mvolts) AUTO [facility] Jaciel RA Sensing Blanking Period (ms) 56 ms [facility] Jaciel RA Sensing Polarity BI [facility] Jaciel RA Sensing Refractory Period (ms) AUTO [facility] Jaciel RV Pacing Amplitude (volts) 3.4 V [facility] Jaciel RV Pacing Polarity BI [facility] Jaciel RV Pacing Pulse Width (ms) 0.4 ms [facility] Jaciel RV Sensing Amplitude (mvolts) AUTO [facility] Jaciel RV Sensing Blanking Period (ms) 30 ms [facility] Jaciel RV Sensing Polarity BI [facility] Jaciel RV Sensing Refractory Period (ms) 250 ms [facility] Hysteresis Rate (bpm) 60 {beats}/min [facility] Lead1 Mfg SUZETTE [facility] Lead2 Mfg SUZETTE [facility] Location RA [facility] Location RV [facility] Lower Rate (bpm) 60 {beats}/min [facility] Max Sensor Rate (bmp) 130 {beats}/min [facility] Model 582900 Monika Dominguez [facility] Model 365919 [facility] Model 534528 [facility] Pacemaker Dependent? NO [facility] PM-Device Mfg BIO [facility] PM-PMT Intervention ON [facility] PM-PVC Intervention ON [facility] PM-Rate Modulation Acceleration Reaction 4 s [facility] PM-Rate Modulation Deceleration 0.5 m [facility] PM-Rate Modulation [place] 23 [facility] PM-Rate Modulation Threshold Medium [facility] RA Bipolar Impedance ohms 448 ohm [facility] Rhythm AF with controlled ventricular rate. [facility] RV Bipolar Impedance ohms 390 ohm [facility] Serial Number [id number] [facility] Serial Number [id number] [facility] Serial Number [id number] [facility] Thresh RA Sensing Amplitude (mvolts) 2.4 mV [facility] Thresh RV Capture Amplitude (volts) 1.8 V [facility] Thresh RV Capture Duration (ms) 0.4 ms [facility] Thresh RV Sensing Amplitude (mvolts) 2.4 mV [facility] Tracking Rate (bpm) 160 {beats}/min [facility] BNPon 11-28-2021 Natriuretic peptide B (Bld) [Mass/Vol] 16075.0 pg/mL Critically high <=1,800.0 The [facility] Comment on above: Performed By: #### C MP, BNP, CRP ####[facility] Axoegplnrd[address] [place], [place] [address]Dr. Farhat Leal CBC AUTO DIFFon 11-28-2021 BASO # 0.0 103/ul Normal 0.0-0.1 The [facility] Comment on above: Performed By: #### C BC ####[facility] Paqpdgviwy[address] [place], [place] [address]Dr. Farhat Leal Basophils/100 WBC (Bld) 0.3 % Normal 0.2-2.0 [facility] Comment on above: Performed By: #### C BC ####[facility] Fbhhuviccn69[address] [place], [place] [address]Dr. Farhat Leal EO # 0.1 103/ul Normal 0.0-0.7 [facility] Comment on above: Performed By: #### C BC ####[facility] Jsfraawxdx5[address] [place], [place] [address]Dr. Farhat Leal Eosinophils/100 WBC (Bld) 1.0 % Normal 0.9-7.0 [facility] Comment on above: Performed By: #### C BC ####[facility] Fqopezrdpy1537[address] [place], [place] [address]DrSkylar Leal Erythrocyte distribution width (RBC) [Ratio] 14.0 % Normal 11.0-15.0 [facility] Comment on above: Performed By: #### C BC ####[facility] [address] [place] [address]DrSkylar Leal Hematocrit (Bld) [Volume fraction] 27.6 % Critically low 42.0-54.0 [facility] Comment on above: Performed By: #### C BC ####[facility] Fxhciwqhbk2525[address] [place], [place] [address]DrSkylar Leal Hemoglobin (Bld) [Mass/Vol] 9.0 g/dL Critically low 14.0-18.0 [facility] Comment on above: Performed By: #### C BC ####[facility] Vqsmwdjndy[address] [place], [place] [address]DrSkylar Leal IG # 0.12 10e3/ul Critically high 0.00-0.03 [facility] Comment on above: Performed By: #### C BC ####[facility] Hohfekfher[address] [place], [place] [address]DrSkylar Leal IG % 1.0 % Critically high 0.0-0.5 [facility] Comment on above: Performed By: #### C BC ####[facility] Bkjepsbkdu0102[address] [place], [place] [address]DrSkylar Leal LYMPH # 1.2 103/ul Normal 1.2-3.8 [facility] Comment on above: Performed By: #### C BC ####[facility] Dhsdqujlcb7562[address] [place], [place] [address]DrSkylar Leal Lymphocytes/100 WBC (Bld) 9.9 % Critically low 20.5-60.0 [facility] Comment on above: Performed By: #### C BC ####[facility] Nqkgdsbtup23[address] [place], [place] [address]DrSkylar Leal MANUAL DIFF REQ NO Normal The [facility] Comment on above: Performed By: #### C BC ####[facility] Cqxhcuszbo[address] [place], [place] [address]DrSkylar Leal MCH (RBC) [Entitic mass] 30.0 pg Normal 25.9-34.0 [facility] Comment on above: Performed By: #### C BC ####[facility] [address] [place] [address]Dr. Farhat Leal MCHC (RBC) [Mass/Vol] 32.6 g/dL Normal 29.9-35.2 [facility] Comment on above: Performed By: #### C BC ####[facility] Rcscexluph[address] [place], [place] [address]Dr. Farhat Leal MCV (RBC) [Entitic vol] 92.0 fL Normal 80.0-94.0 [facility] Comment on above: Performed By: #### C BC ####[facility] Cxpinmgvfg7329[address] [place], [place] [address]DrSkylar Leal MONO # 1.1 103/ul Critically high 0.3-0.8 The [facility] Comment on above: Performed By: #### C BC ####[facility] Lpihmiigos0186[address] [place], [place] [address]Dr. Farhat Leal Monocytes/100 WBC (Bld) 9.3 % Normal 1.7-12.0 [facility] Comment on above: Performed By: #### C BC ####[facility] Pspyogkqvy[address] [place], [place] [address]DrSkylar Leal NEUT # 9.3 103/ul Critically high 1.4-6.5 The [facility] Comment on above: Performed By: #### C BC ####[facility] L[address]hnjngpze[address] [place], [place] [address]Dr. Farhat Leal Neutrophils/100 WBC (Bld) 78.5 % Critically high 43.0-75.0 [facility] Comment on above: Performed By: #### C BC ####[facility] Cdzkrglcxh35[address] [place], [place] [address]DrSkylar Leal Platelet mean volume (Bld) [Entitic vol] 9.6 fL Normal 9.5-13.5 The [facility] Comment on above: Performed By: #### C BC ####[facility] Iamnziqkhk[address] [place], [place] [address]Dr. Farhat Leal PLT 357 103/ul Normal 150-450 [facility] Comment on above: Performed By: #### C BC ####[facility] P[address]fltoej[address] [place] [id number]. Farhat Leal RBC 3.00 106/ul Critically low 4.70-6.10 [facility] Comment on above: Performed By: #### C BC ####[facility] Kvbpknymyp4[address] [place] [id number]. Farhat Leal WBC 11.8 103/ul Critically high 4.0-11.0 [facility] Comment on above: Performed By: #### C BC ####[facility] B[address]efvhkbl[address] [place] [address]Dr. Farhat Leal CRPon 11-28-2021 CRP 20.9 mg/dL Critically high <=1.0 [facility] Comment on above: Performed By: #### C MP, BNP, CRP ####[facility] [address] [place] [address]Dr. Farhat Leal CULTURE OTHERon 11-28-2021 CULTURE OTHER Normal [facility] Comment on above: Performed By: #### O THCX ####[facility] Ufvhuzqpfb[address] [place], [place] [address]Dr. Farhat Leal CULTURE OTHER Normal The [facility] Comment on above: Performed By: #### O THCX ####[facility] Uykwolwbzm[address] [place], [place] [address]Dr. Farhat Elvis PROF 14(COMP METB)on 022 Albumin [Mass/Vol] 1.4 g/dL Critically low 3.4-5.[address] [facility] Comment on above: Performed By: #### C MP, BNP, CRP ####[facility] [address]ujypjybz[address] [place] [address]Dr. Farhat Leal Albumin/Globulin [Mass ratio] 0.4 {ratio} Normal [facility] Comment on above: Performed By: #### C MP, BNP, CRP ####[facility] Ksddblidms23[address] [place] [address]Dr. Farhat Leal ALP [Catalytic activity/Vol] 82 U/L Normal 46-116 [facility] Comment on above: Performed By: #### C MP, BNP, CRP ####[facility] Mrrqcplgrr7[address] [place] [address]Dr. Farhat Leal ALT [Catalytic activity/Vol] 20 U/L Normal 16-63 [facility] Comment on above: Performed By: #### C MP, BNP, CRP ####[facility] Gkbjafymwo26[address] [place] [address]Dr. Farhat Leal Anion gap [Moles/Vol] 13.0 mmol/L Normal [facility] Comment on above: Performed By: #### C MP, BNP, CRP ####[facility] Htyeykhphu[address] [place] [address]Dr. Farhat Leal AST [Catalytic activity/Vol] 33 U/L Normal 15-37 [facility] Comment on above: Performed By: #### C MP, BNP, CRP ####[facility] Jgihrklwhf[address] [place] [address]Dr. Farhat Leal Bilirubin [Mass/Vol] 0.7 mg/dL Normal 0.2-1.0 [facility] Comment on above: Performed By: #### C MP, BNP, CRP ####[facility] Jflselaluu2[address] [place] [address]Dr. Farhat Leal Calcium [Mass/Vol] 8.4 mg/dL Critically low 8.5-10.1 [facility] Comment on above: Performed By: #### C MP, BNP, CRP ####[facility] Jnnmmorgxz[address] [place] [address]Dr. Farhat Leal Chloride [Moles/Vol] 100 mmol/L Normal 98-107 [facility] Comment on above: Performed By: #### C MP, BNP, CRP ####[facility] Yvfysvumxy[address] [place] [address]Dr. Farhat Leal CO2 [Moles/Vol] 23.7 mmol/L Normal 21.0-32.0 The [facility] Comment on above: Performed By: #### C MP, BNP, CRP ####[facility] Iscjeacykv87[address] [place] [address]Dr. Farhat Elvis Creatinine [Mass/Vol] 1.70 mg/dL Critically high 0.70-1.30 [facility] Comment on above: Performed By: #### C MP, BNP, CRP ####[facility] Ciyiyntjjw[address] [place], [place] [address]Dr. Farhat Elvis EGFR-AF ICELANDIC 48 mL/min/1.73m2 Critically low >=60 [facility] Comment on above: Performed By: #### C MP, BNP, CRP ####[facility] L[address]ahqwrcyz[address] [place], [place] [address]Dr. Madelynlorri Elvis EGFR-NON AF ICELANDIC 39 mL/min/1.73m2 Critically low >=60 [facility] Comment on above: Performed By: #### C MP, BNP, CRP ####[facility] Akxvnikyvg[address] [place], [place] [address]Dr. Farhat Leal Globulin (S) [Mass/Vol] 3.6 g/dL Normal [facility] Comment on above: Performed By: #### C MP, BNP, CRP ####[facility] Qxlhfscfxy1786[address] [place], [place] [address]Dr. Farhat Leal Glucose [Mass/Vol] 232 mg/dL Critically high 74-106 [facility] Comment on above: Performed By: #### C MP, BNP, CRP ####[facility] Wwgpxkuzoa[address] [place], [place] [address]Dr. Farhat Leal Potassium [Moles/Vol] 3.7 mmol/L Normal 3.5-5.1 [facility] Comment on above: Performed By: #### C MP, BNP, CRP ####[facility] Pljbfucvbv[address] [place], [place] [address]Dr. Farhat Leal Protein [Mass/Vol] 5.0 g/dL Critically low 6.4-8.[address] [facility] Comment on above: Performed By: #### C MP, BNP, CRP ####[facility] Fzgwdsztqd49[address] [place], [place] [address]Dr. Farhat Leal Sodium [Moles/Vol] 133 mmol/L Critically low 136-145 Th e [facility] Comment on above: Performed By: #### C MP, BNP, CRP ####[facility] Asxuzsruad90[address] [place] [id number]. Farhat Leal Urea nitrogen [Mass/Vol] 52.0 mg/dL Critically high 7.0-18.0 [facility] Comment on above: Performed By: #### C MP, BNP, CRP ####[facility] [address]omsqbfvyj[address] [place] [address]Dr. Farhat Leal Urea nitrogen/Creatinine [Mass ratio] 30.6 mg/mg Normal [facility] Comment on above: Performed By: #### C MP, BNP, CRP ####[facility] Yqlfyolgvo[address] [place] [address]Dr. Farhat Leal PROTIMEon 11-28-2021 INR Coag (PPP) [Relative time] 1.29 {INR} Normal [facility] Comment on above: Performed By: #### P T ####[facility] Owurkatxob4[address] [place], [place] [address]Dr. Farhat Leal INR GUIDELINES SEE BELOW Normal [facility] Comment on above: Result Comment: MALINA RED INR: 2.0 - 3.0 CONDITIONS NOT LISTED BELOW 2.5 - 3.5 FOR PROSTHETIC HEART VALVE REPLACEMENT 2.5 - 3.5 RECURRENT THROMBOSIS Performed By: #### P T ####[facility] Kxxlmuq[address] [place], [place] [address]Dr. Farhat Leal PT Coag (PPP) [Time] 13.7 s Critically high 9.0-11.6 [facility] Comment on above: Performed By: #### P T ####[facility] Eslupenoar[address] [place] [address]DrSkylar Leal [facility] RATE 77 mm/hr Critically high <=20 [facility] Comment on above: Performed By: #### S EDR ####[facility] Emdagzvozq13[address] [place], [place] [address]DrSkylar Leal XR CHEST 2 Von 11-28-2021 XR CHEST 2 V Normal [facility] BNPon 11-27-2021 Natriuretic peptide B (Bld) [Mass/Vol] 05536.0 pg/mL Critically high <=1,800.0 The [facility] Comment on above: Performed By: #### B WIND TURBINE TECHNICIAN, CMP, CRP ####[facility] Uoljypwzru39[address] [place] [address]Dr. Farhat Leal CBC AUTO DIFFon 11-27-2021 BASO # 0.0 103/ul Normal 0.0-0.1 [facility] Comment on above: Performed By: #### C BC ####[facility] Cisxouzvhb[address] [place], [place] [address]Dr. Farhat Leal Basophils/100 WBC (Bld) 0.2 % Normal 0.2-2.0 The [facility] Comment on above: Performed By: #### C BC ####[facility] Lcubscnufd[address] [place], [place] [address]Dr. Farhat Leal EO # 0.2 103/ul Normal 0.0-0.7 The [facility] Comment on above: Performed By: #### C BC ####[facility] Ytzrsrxasr8[address] [place], [place] [address]Dr. Farhat Leal Eosinophils/100 WBC (Bld) 1.9 % Normal 0.9-7.0 The [facility] Comment on above: Performed By: #### C BC ####[facility] Agajjaieba[address] [place], [place] [address]Dr. Farhat Leal Erythrocyte distribution width (RBC) [Ratio] 13.9 % Normal 11.0-15.0 The [facility] Comment on above: Performed By: #### C BC ####[facility] Zdzhnbhtuu40[address] [place], [place] [address]Dr. Farhat Leal Hematocrit (Bld) [Volume fraction] 28.7 % Critically low 42.0-54.0 The [facility] Comment on above: Performed By: #### C BC ####[facility] Bkokatqdcn12[address] [place], [place] [address]Dr. Farhat Leal Hemoglobin (Bld) [Mass/Vol] 9.3 g/dL Critically low 14.0-18.0 [facility] Comment on above: Performed By: #### C BC ####[facility] Teuxvqpqul[address] [place] [address]Dr. Farhat Leal IG # 0.14 10e3/ul Critically high 0.00-0.03 [facility] Comment on above: Performed By: #### C BC ####[facility] Vxrqtyaxuz9[address] [place] [address]Dr. Farhat Leal IG % 1.2 % Critically high 0.0-0.5 [facility] Comment on above: Performed By: #### C BC ####[facility] Befzdmirfy364[address] [place] [address]DrSkylar Leal LYMPH # 1.1 103/ul Critically low 1.2-3.8 [facility] Comment on above: Performed By: #### C BC ####[facility] Lkdwsfottx4328 [place] [address]DrSkylar Leal Lymphocytes/100 WBC (Bld) 9.4 % Critically low 20.5-60.0 [facility] Comment on above: Performed By: #### C BC ####[facility] Ahfjnqdljx[address] [place] [address]DrSkylar Leal MANUAL DIFF REQ NO Normal The [facility] Comment on above: Performed By: #### C BC ####[facility] Elunfniyyi68[address] [place] [address]DrSkylar Leal MCH (RBC) [Entitic mass] 29.7 pg Normal 25.9-34.0 [facility] Comment on above: Performed By: #### C BC ####[facility] Nnngvyopgj17[address] [place] [phone] Leal MCHC (RBC) [Mass/Vol] 32.4 g/dL Normal 29.9-35.2 [facility] Comment on above: Performed By: #### C BC ####[facility] Uyishahtnl[address] [place] [phone] Leal MCV (RBC) [Entitic vol] 91.7 fL Normal 80.0-94.0 [facility] Comment on above: Performed By: #### C BC ####[facility] Qiyguaqtfx29[address] [place] [address]DrSkylar Farhat Elvis MONO # 1.1 103/ul Critically high 0.3-0.8 The [facility] Comment on above: Performed By: #### C BC ####[facility] Qwibqbdgnm5343 [place] [address]Dr. Farhat Leal Monocytes/100 WBC (Bld) 9.7 % Normal 1.7-12.0 [facility] Comment on above: Performed By: #### C BC ####[facility] Lwlrfgvbis50[address] [place] [address]Dr. Madelynlorri Elvis NEUT # 9.2 103/ul Critically high 1.4-6.5 The [facility] Comment on above: Performed By: #### C BC ####[facility] Tczxrxyhho23[address] [place], [place] [address]Dr. Farhat Leal Neutrophils/100 WBC (Bld) 77.6 % Critically high 43.0-75.0 [facility] Comment on above: Performed By: #### C BC ####[facility] Ytntryikjm[address] [place], [place] [address]Dr. Madelynlorri Leal Platelet mean volume (Bld) [Entitic vol] 9.5 fL Normal 9.5-13.5 [facility] Comment on above: Performed By: #### C BC ####[facility] Oxnbpovukw[address] [place] [address]Dr. Farhat Leal PLT 375 103/ul Normal 150-450 The [facility] Comment on above: Performed By: #### C BC ####[facility] Kjaemgbucu[address] [place] [phone] Leal RBC 3.13 106/ul Critically low 4.70-6.10 The [facility] Comment on above: Performed By: #### C BC ####[facility] Izpcqzdnjg3[address] [place] [phone] Leal WBC 11.8 103/ul Critically high 4.0-11.0 [facility] Comment on above: Performed By: #### C BC ####[facility] Rnpvekppmn8[address] [place] [address]Dr. Madelynlorri Elvis CRPon 11-27-2021 CRP 24.5 mg/dL Critically high <=1.0 [facility] Comment on above: Performed By: #### B WIND TURBINE TECHNICIAN, CMP, CRP ####[facility] Fzsgrxrwyp[address] [place] [address]Dr. Madelynlorri Leal CULTURE OTHERon 11-27-2021 CULTURE OTHER Normal [facility] Comment on above: Performed By: #### O THCX ####[facility] Qnbwsrxovx8168 [place] [address]Dr. Farhat Leal CULTURE OTHER Normal [facility] Comment on above: Performed By: #### O THCX ####[facility] Lhcadnffth24[address] [place] [address]Dr. Farhat Leal CULTURE WOUNDon 11-27-2021 CULTURE WOUND Normal [facility] Comment on above: Performed By: #### W OUNDCX ####[facility] Pvgfctoiyu[address] [place] [address]Dr. Farhat Leal POINT OF CARE GLUCOSEon 11-15 Glucose [Mass/Vol] 147 mg/dL Critically high 74-106 [facility] Comment on above: Performed By: #### P OCGLUC ####[facility] Ntyiruxsbp2258 [place] [address]Dr. Farhat Leal PROF 14(COMP METB)on 022 Albumin [Mass/Vol] 1.4 g/dL Critically low 3.4-5.0 [facility] Comment on above: Performed By: #### B WIND TURBINE TECHNICIAN, CMP, CRP ####[facility] Mgvjsbpygs74[address] [place] [address]Dr. Farhat Leal Albumin/Globulin [Mass ratio] 0.4 {ratio} [facility] Comment on above: Performed By: #### B WIND TURBINE TECHNICIAN, CMP, CRP ####[facility] Zncryvotge04[address] [place] [address]Dr. Farhat Leal ALP [Catalytic activity/Vol] 82 U/L Normal 46-116 The [facility] Comment on above: Performed By: #### B WIND TURBINE TECHNICIAN, CMP, CRP ####[facility] Bsevxlefjj30[address] [place] [address]Dr. Farhat Leal ALT [Catalytic activity/Vol] 22 U/L Normal 16-63 [facility] Comment on above: Performed By: #### B WIND TURBINE TECHNICIAN, CMP, CRP ####[facility] Uclghcutdu3502 [place] [address]Dr. Farhat Leal Anion gap [Moles/Vol] 14.2 mmol/L Normal [facility] Comment on above: Performed By: #### B WIND TURBINE TECHNICIAN, CMP, CRP ####[facility] Ndzsfqthxt57[address] [place], [place] [address]Dr. Farhat Leal AST [Catalytic activity/Vol] 35 U/L Normal 15-37 [facility] Comment on above: Performed By: #### B WIND TURBINE TECHNICIAN, CMP, CRP ####[facility] Jsazabrbcm56[address] [place], [place] [address]Dr. Farhat Leal Bilirubin [Mass/Vol] 0.7 mg/dL Normal 0.2-1.0 [facility] Comment on above: Performed By: #### B WIND TURBINE TECHNICIAN, CMP, CRP ####[facility] Zngvrigkmn54[address] [place], [place] [address]Dr. Farhat Leal Calcium [Mass/Vol] 8.2 mg/dL Critically low 8.5-10.1 [facility] Comment on above: Performed By: #### B WIND TURBINE TECHNICIAN, CMP, CRP ####[facility] Qayhqnpact3251 [place] [address]Dr. Farhat Leal Chloride [Moles/Vol] 99 mmol/L Normal 98-107 [facility] Comment on above: Performed By: #### B WIND TURBINE TECHNICIAN, CMP, CRP ####[facility] Ioswjyjoyc87[address] [place] [address]Dr. Farhat Leal CO2 [Moles/Vol] 22.6 mmol/L Normal 21.0-32.0 The [facility] Comment on above: Performed By: #### B WIND TURBINE TECHNICIAN, CMP, CRP ####[facility] Hasijpmnju76[address] [place] [address]Dr. Farhat Leal Creatinine [Mass/Vol] 1.73 mg/dL Critically high 0.70-1.30 [facility] Comment on above: Performed By: #### B WIND TURBINE TECHNICIAN, CMP, CRP ####[facility] Szfkpwytrv9804 [place] [address]Dr. Farhat Elvis EGFR-AF ICELANDIC 47 mL/min/1.73m2 Critically low >=60 [facility] Comment on above: Performed By: #### B WIND TURBINE TECHNICIAN, CMP, CRP ####[facility] Vkmmelyxap3[address] [place], [place] [address]Dr. Madelynlorri Elvis EGFR-NON AF ICELANDIC 38 mL/min/1.73m2 Critically low >=60 [facility] Comment on above: Performed By: #### B WIND TURBINE TECHNICIAN, CMP, CRP ####[facility] Hfuehqxdte24[address] [place], [place] [address]Dr. Farhat Leal Globulin (S) [Mass/Vol] 3.7 g/dL Normal [facility] Comment on above: Performed By: #### B WIND TURBINE TECHNICIAN, CMP, CRP ####[facility] Cwlnmmvvpv4[address] [place], [place] [address]Dr. Farhat Leal Glucose [Mass/Vol] 220 mg/dL Critically high 74-106 [facility] Comment on above: Performed By: #### B WIND TURBINE TECHNICIAN, CMP, CRP ####[facility] Iliinckdlw8[address] [place], [place] [address]Dr. Madelynlorri Elvis Potassium [Moles/Vol] 3.8 mmol/L Normal 3.5-5.1 [facility] Comment on above: Performed By: #### B WIND TURBINE TECHNICIAN, CMP, CRP ####[facility] Byacntfeza075[address] [place], [place] [address]Dr. Madelynlorri Elvis Protein [Mass/Vol] 5.1 g/dL Critically low 6.4-8.[address] [facility] Comment on above: Performed By: #### B WIND TURBINE TECHNICIAN, CMP, CRP ####[facility] Dxrodvhqrk673[address] [place], [place] [address]Dr. Farhat Leal Sodium [Moles/Vol] 132 mmol/L Critically low 136-145 Th e [facility] Comment on above: Performed By: #### B WIND TURBINE TECHNICIAN, CMP, CRP ####[facility] Qyrtcgfton0329 [place] [address]Dr. Farhat Leal Urea nitrogen [Mass/Vol] 49.0 mg/dL Critically high 7.0-18.0 [facility] Comment on above: Performed By: #### B WIND TURBINE TECHNICIAN, CMP, CRP ####[facility] Mjmnbsrqsr4[address] [place], [place] [address]Dr. Farhat Leal Urea nitrogen/Creatinine [Mass ratio] 28.3 mg/mg Normal [facility] Comment on above: Performed By: #### B WIND TURBINE TECHNICIAN, CMP, CRP ####[facility] Zvaopprdwi8[address] [place], [place] [address]Dr. Farhat Leal PROTIMEon 11-27-2021 INR Coag (PPP) [Relative time] 1.25 {INR} Normal [facility] Comment on above: Performed By: #### P T ####[facility] Wykpspvvhr87[address] [place], [place] [address]Dr. Farhat Leal INR GUIDELINES SEE BELOW Normal The [facility] Comment on above: Result Comment: MALINA RED INR: 2.0 - 3.0 CONDITIONS NOT LISTED BELOW 2.5 - 3.5 FOR PROSTHETIC HEART VALVE REPLACEMENT 2.5 - 3.5 RECURRENT THROMBOSIS Performed By: #### P T ####[facility] Ilkepejgzt4314[address] [place], [place] [address]Dr. Farhat Leal PT Coag (PPP) [Time] 13.3 s Critically high 9.0-11.6 [facility] Comment on above: Performed By: #### P T ####[facility] Sesezrplop[address] [place], [place] [address]Dr. Farhat Leal SED RATE WESTERGRENon 2021 SED RATE 60 mm/hr Critically high <=20 [facility] Comment on above: Performed By: #### S EDR ####[facility] Iulnawalaj6654[address] [place], [place] [address]Dr. Farhat Leal VANCOMYCIN TROUGHon 10-13-20 22 VANCOMYCIN TROUGH 21.2 ug/ml Critically high 5.0-20.0 Th e [facility] Comment on above: Performed By: #### V ANCT ####[facility] Ndhxdktxwt3087[address] [place], [place] [address]Dr. Farhat Leal XR CHEST 1 Von 11-27-2021 XR CHEST 1 V Normal [facility] BNPon 11-26-2021 Natriuretic peptide B (Bld) [Mass/Vol] 56366.0 pg/mL Critically high <=1,800.0 The [facility] Comment on above: Performed By: #### B WIND TURBINE TECHNICIAN, CRP, CMP ####[facility] Wejddtadzn9[address] [place], [place] [address]Dr. Farhat Leal CBC AUTO DIFFon 11-26-2021 BASO # 0.0 103/ul Normal 0.0-0.1 [facility] Comment on above: Performed By: #### C BC ####[facility] Jjcfkxcfac29[address] [place], [place] [address]Dr. Farhat Leal Basophils/100 WBC (Bld) 0.2 % Normal 0.2-2.0 [facility] Comment on above: Performed By: #### C BC ####[facility] Muvzvwldon26[address] [place], [place] [address]DrSkylar Leal EO # 0.0 103/ul Normal 0.0-0.7 [facility] Comment on above: Performed By: #### C BC ####[facility] Seordifjxt2988[address] [place], [place] [address]DrSkylar Leal Eosinophils/100 WBC (Bld) 0.3 % Critically low 0.9-7.0 The [facility] Comment on above: Performed By: #### C BC ####[facility] Kwudiinxoo2722[address] [place], [place] [address]DrSkylar Leal Erythrocyte distribution width (RBC) [Ratio] 13.9 % Normal 11.0-15.0 The [facility] Comment on above: Performed By: #### C BC ####[facility] Plvmrfhahx3912[address] [place], [place] [address]DrSkylar Leal Hematocrit (Bld) [Volume fraction] 27.3 % Critically low 42.0-54.0 [facility] Comment on above: Performed By: #### C BC ####[facility] Imiogxatqc4968 [place] [address]DrSkylar Leal Hemoglobin (Bld) [Mass/Vol] 8.8 g/dL Critically low 14.0-18.0 [facility] Comment on above: Performed By: #### C BC ####[facility] Djbctwlzrp5[address] [place], [place] [address]DrSkylar Leal IG # 0.17 10e3/ul Critically high 0.00-0.03 [facility] Comment on above: Performed By: #### C BC ####[facility] Lfdvvhjxxi2518[address] [place], [place] [address]DrSkylar Leal IG % 1.2 % Critically high 0.0-0.5 [facility] Comment on above: Performed By: #### C BC ####[facility] Aggyzznrgv8388[address] [place], [place] [address]DrSkylar Leal LYMPH # 0.7 103/ul Critically low 1.2-3.8 The [facility] Comment on above: Performed By: #### C BC ####[facility] Gxdbinfvpd0034[address] [place], [place] [address]DrSkylar Leal Lymphocytes/100 WBC (Bld) 4.8 % Critically low 20.5-60.0 [facility] Comment on above: Performed By: #### C BC ####[facility] Dwnkutpcfk22[address] [place], [place] [address]DrSkylar Leal MANUAL DIFF REQ NO Normal The [facility] Comment on above: Performed By: #### C BC ####[facility] Eaalgrcoat1623[address] [place], [place] [address]DrSkylar Leal MCH (RBC) [Entitic mass] 29.9 pg Normal 25.9-34.0 [facility] Comment on above: Performed By: #### C BC ####[facility] Cvhpdtanzx6[address] [place], [place] [address]DrSkylar Leal MCHC (RBC) [Mass/Vol] 32.2 g/dL Normal 29.9-35.2 The [facility] Comment on above: Performed By: #### C BC ####[facility] Ytouscqyqk9653 [place] [address]DrSkylar Leal MCV (RBC) [Entitic vol] 92.9 fL Normal 80.0-94.0 The [facility] Comment on above: Performed By: #### C BC ####[facility] Wqbnvkytoj5065[address] [place], [place] [address]DrSkylar Leal MONO # 1.3 103/ul Critically high 0.3-0.8 The [facility] Comment on above: Performed By: #### C BC ####[facility] Ksoxfwovvn9429[address] [place], [place] [address]DrSkylar Leal Monocytes/100 WBC (Bld) 9.6 % Normal 1.7-12.0 The [facility] Comment on above: Performed By: #### C BC ####[facility] Qjcvuqhtce0817[address] [place], [place] [address]DrSkylar Leal NEUT # 11.4 103/ul Critically high 1.4-6.5 The [facility] Comment on above: Performed By: #### C BC ####[facility] Goqwbobxaw6509[address] [place], [place] [address]DrSkylar Leal Neutrophils/100 WBC (Bld) 83.9 % Critically high 43.0-75.0 [facility] Comment on above: Performed By: #### C BC ####[facility] Towtzibtxx8127[address] [place], [place] [address]DrSkylar Leal Platelet mean volume (Bld) [Entitic vol] 9.6 fL Normal 9.5-13.5 The [facility] Comment on above: Performed By: #### C BC ####[facility] Kcrleukrhd17[address] [place], [place] [address]DrSkylar Leal PLT 395 103/ul Normal 150-450 [facility] Comment on above: Performed By: #### C BC ####[facility] Mrxzotwgjl484[address] [place], [place] [address]DrSkylar Leal RBC 2.94 106/ul Critically low 4.70-6.10 [facility] Comment on above: Performed By: #### C BC ####[facility] Rhrjhbojpt3392 [place] [address]Dr. Farhat Leal WBC 13.6 103/ul Critically high 4.0-11.0 [facility] Comment on above: Performed By: #### C BC ####[facility] Petbmrzhhr9977 [place] [address]Dr. Farhat Leal CRPon 11-26-2021 CRP [Mass/Vol] mg/L Critically high <=1.0 [facility] Comment on above: Performed By: #### B WIND TURBINE TECHNICIAN, CRP, CMP ####[facility] Bdonuzikgh858[address] [place], [place] [address]Dr. Farhat Leal PROF 14(COMP METB)on 022 Albumin [Mass/Vol] 1.5 g/dL Critically low 3.4-5.0 [facility] Comment on above: Performed By: #### B WIND TURBINE TECHNICIAN, CRP, CMP ####[facility] Bhhhnvshio9163 [place] [address]Dr. Farhat Leal Albumin/Globulin [Mass ratio] 0.4 {ratio} Normal [facility] Comment on above: Performed By: #### B WIND TURBINE TECHNICIAN, CRP, CMP ####[facility] Frlojsjiyx9635 [place] [address]Dr. Farhat Leal ALP [Catalytic activity/Vol] 88 U/L Normal 46-116 [facility] Comment on above: Performed By: #### B WIND TURBINE TECHNICIAN, CRP, CMP ####[facility] Aoyisfoinw3511 [place] [address]Dr. Farhat Leal ALT [Catalytic activity/Vol] 29 U/L Normal 16-63 [facility] Comment on above: Performed By: #### B WIND TURBINE TECHNICIAN, CRP, CMP ####[facility] Dwqnwfgwlm9762 [place] [address]Dr. Farhat Leal Anion gap [Moles/Vol] 13.3 mmol/L Normal [facility] Comment on above: Performed By: #### B WIND TURBINE TECHNICIAN, CRP, CMP ####[facility] Vnheardwui6901 [place] [address]Dr. Farhat Leal AST [Catalytic activity/Vol] 32 U/L Normal 15-37 The [facility] Comment on above: Performed By: #### B WIND TURBINE TECHNICIAN, CRP, CMP ####[facility] Iqpdfhbcsg2312 [place] [address]Dr. Farhat Leal Bilirubin [Mass/Vol] 0.6 mg/dL Normal 0.2-1.0 [facility] Comment on above: Performed By: #### B WIND TURBINE TECHNICIAN, CRP, CMP ####[facility] Ihghfpcejw1888 [place] [address]Dr. Farhat Leal Calcium [Mass/Vol] 8.0 mg/dL Critically low 8.5-10.[address] [facility] Comment on above: Performed By: #### B WIND TURBINE TECHNICIAN, CRP, CMP ####[facility] Eqsjrhjybh707[address] [place], [place] [address]Dr. Farhat Leal Chloride [Moles/Vol] 98 mmol/L Normal 98-107 [facility] Comment on above: Performed By: #### B WIND TURBINE TECHNICIAN, CRP, CMP ####[facility] Fkhfadouaq8869[address] [place], [place] [address]Dr. Farhat Leal CO2 [Moles/Vol] 23.7 mmol/L Normal 21.0-32.0 The [facility] Comment on above: Performed By: #### B WIND TURBINE TECHNICIAN, CRP, CMP ####[facility] Lkdhlehwej5307 [place] [address]Dr. Farhat Leal Creatinine [Mass/Vol] 2.08 mg/dL Critically high 0.70-1.30 [facility] Comment on above: Performed By: #### B WIND TURBINE TECHNICIAN, CRP, CMP ####[facility] Ptpmudvgyb[address] [place], [place] [address]Dr. Farhat Leal EGFR-AF ICELANDIC 38 mL/min/1.73m2 Critically low >=60 The [facility] Comment on above: Performed By: #### B WIND TURBINE TECHNICIAN, CRP, CMP ####[facility] Nhesxzklab4123[address] [place], [place] [address]Dr. Farhat Leal EGFR-NON AF ICELANDIC 31 mL/min/1.73m2 Critically low >=60 [facility] Comment on above: Performed By: #### B WIND TURBINE TECHNICIAN, CRP, CMP ####[facility] Qhumbvufmz1169 [place] [address]Dr. Farhat Leal Globulin (S) [Mass/Vol] 3.7 g/dL Normal [facility] Comment on above: Performed By: #### B WIND TURBINE TECHNICIAN, CRP, CMP ####[facility] Dwtxnbyelt4894 [place] [address]Dr. Farhat Leal Glucose [Mass/Vol] 315 mg/dL Critically high 74-106 [facility] Comment on above: Performed By: #### B WIND TURBINE TECHNICIAN, CRP, CMP ####[facility] Ijsdeudter0935[address] [place], [place] [address]Dr. Farhat Leal Potassium [Moles/Vol] 4.0 mmol/L Normal 3.5-5.1 [facility] Comment on above: Performed By: #### B WIND TURBINE TECHNICIAN, CRP, CMP ####[facility] Nhsfuirebb4601[address] [place], [place] [address]Dr. Farhat Leal Protein [Mass/Vol] 5.2 g/dL Critically low 6.4-8.[address] [facility] Comment on above: Performed By: #### B WIND TURBINE TECHNICIAN, CRP, CMP ####[facility] Pycxvrazma9219[address] [place], [place] [address]Dr. Farhat Leal Sodium [Moles/Vol] 131 mmol/L Critically low 136-[address] [facility] Comment on above: Performed By: #### B WIND TURBINE TECHNICIAN, CRP, CMP ####[facility] Sxrgdwwcun5[address] [place], [place] [address]Dr. Farhat Leal Urea nitrogen [Mass/Vol] 50.0 mg/dL Critically high 7.0-18.0 [facility] Comment on above: Performed By: #### B WIND TURBINE TECHNICIAN, CRP, CMP ####[facility] Xemihukuxo[address] [place], [place] [address]Dr. Farhat Leal Urea nitrogen/Creatinine [Mass ratio] 24.0 mg/mg Normal [facility] Comment on above: Performed By: #### B WIND TURBINE TECHNICIAN, CRP, CMP ####[facility] Zoteqrnyaz5[address] [place] [address]Dr. Farhat Leal PROTIMEon 11-26-2021 INR Coag (PPP) [Relative time] 1.31 {INR} Normal [facility] Comment on above: Performed By: #### P T ####[facility] Zwdozifunv28[address] [place] [address]Dr. Farhat Leal INR GUIDELINES SEE BELOW Normal [facility] Comment on above: Result Comment: MALINA RED INR: 2.0 - 3.0 CONDITIONS NOT LISTED BELOW 2.5 - 3.5 FOR PROSTHETIC HEART VALVE REPLACEMENT 2.5 - 3.5 RECURRENT THROMBOSIS Performed By: #### P T ####[facility] Grfmnqtsxd[address] [place], [place] [address]Dr. Farhat Leal PT Coag (PPP) [Time] 13.9 s Critically high 9.0-11.6 [facility] Comment on above: Performed By: #### P T ####[facility] Fbnznzodew7[address] [place], [place] [address]Dr. Farhat Leal SED RATE LONG KEYERGREN 2021 SED RATE 87 mm/hr Critically high <=20 [facility] Comment on above: Performed By: #### S EDR ####[facility] Jztbkehaog[address] [place], [place] [address]Dr. Farhat Leal BNPon 11-25-2021 Natriuretic peptide B (Bld) [Mass/Vol] 29873.0 pg/mL Critically high <=1,800.0 [facility] Comment on above: Performed By: #### C MP, BNP, CRP ####[facility] Ruxgazamgb8[address] [place], [place] [address]Dr. Farhat Leal CBC AUTO DIFFon 11-25-2021 BASO # 0.0 103/ul Normal 0.0-0.1 [facility] Comment on above: Performed By: #### C BC ####[facility] Hvclhnuuwk[address] [place], [place] [address]Dr. Farhat Leal Basophils/100 WBC (Bld) 0.4 % Normal 0.2-2.0 [facility] Comment on above: Performed By: #### C BC ####[facility] Inxljnqanw[address] [place] [id number]. Farhat Leal EO # 0.1 103/ul Normal 0.0-0.7 [facility] Comment on above: Performed By: #### C BC ####[facility] Ctbrocloph67[address] [place] [phone]. Farhat Leal Eosinophils/100 WBC (Bld) 1.2 % Normal 0.9-7.0 [facility] Comment on above: Performed By: #### C BC ####[facility] Bylrbyuqrh67[address] [place] [address]Dr. Farhat Leal Erythrocyte distribution width (RBC) [Ratio] 13.7 % Normal 11.0-15.0 [facility] Comment on above: Performed By: #### C BC ####[facility] Msnhjrpyom[address] [place], [place] [address]Dr. Farhat Leal Hematocrit (Bld) [Volume fraction] 29.6 % Critically low 42.0-54.0 [facility] Comment on above: Performed By: #### C BC ####[facility] Nfymqvsles1303[address] [place], [place] [address]Dr. Farhat Leal Hemoglobin (Bld) [Mass/Vol] 9.3 g/dL Critically low 14.0-18.0 [facility] Comment on above: Performed By: #### C BC ####[facility] Uetnnzwvzf[address] [place], [place] [address]Dr. Farhat Leal IG # 0.15 10e3/ul Critically high 0.00-0.03 [facility] Comment on above: Performed By: #### C BC ####[facility] Xrfdnclkvz3[address] [place], [place] [address]Dr. Farhat Leal IG % 1.4 % Critically high 0.0-0.5 The [facility] Comment on above: Performed By: #### C BC ####[facility] Zbadbgakxu9401[address] [place], [place] [address]DrSkylar Leal LYMPH # 0.8 103/ul Critically low 1.2-3.8 [facility] Comment on above: Performed By: #### C BC ####[facility] Rvfeepekei5[address] [place] [address]Dr. Farhat Leal Lymphocytes/100 WBC (Bld) 7.3 % Critically low 20.5-60.0 [facility] Comment on above: Performed By: #### C BC ####[facility] Ctyihryzdr7[address] [place] [address]Dr. Farhat Leal MANUAL DIFF REQ NO Normal [facility] Comment on above: Performed By: #### C BC ####[facility] Mleawwanrj1872 [place] [address]Dr. Farhat Leal MCH (RBC) [Entitic mass] 29.3 pg Normal 25.9-34.0 [facility] Comment on above: Performed By: #### C BC ####[facility] Olxiktkdqe8102[address] [place], [place] [address]Dr. Farhat Leal MCHC (RBC) [Mass/Vol] 31.4 g/dL Normal 29.9-35.2 [facility] Comment on above: Performed By: #### C BC ####[facility] Swszegxqlg7195[address] [place], [place] [address]Dr. Farhat Leal MCV (RBC) [Entitic vol] 93.4 fL Normal 80.0-94.0 [facility] Comment on above: Performed By: #### C BC ####[facility] Uzesbfnrxi68[address] [place] [address]Dr. Farhat Leal MONO # 1.3 103/ul Critically high 0.3-0.8 [facility] Comment on above: Performed By: #### C BC ####[facility] Hexbrhwobj9386 [place] [address]Dr. Farhat Leal Monocytes/100 WBC (Bld) 12.3 % Critically high 1.7-12.0 [facility] Comment on above: Performed By: #### C BC ####[facility] Zuumqzrnil9737 [place] [address]Dr. Farhat Leal NEUT # 8.4 103/ul Critically high 1.4-6.5 [facility] Comment on above: Performed By: #### C BC ####[facility] Pfgvoreatm7747 [place] [address]Dr. Farhat Leal Neutrophils/100 WBC (Bld) 77.4 % Critically high 43.0-75.0 [facility] Comment on above: Performed By: #### C BC ####[facility] Zwszwkjniq7209 [place] [address]Dr. Farhat Leal Platelet mean volume (Bld) [Entitic vol] 9.8 fL Normal 9.5-13.5 [facility] Comment on above: Performed By: #### C BC ####[facility] Ytauxcdppk7280 [place] [address]Dr. Farhat Leal PLT 390 103/ul Normal 150-450 [facility] Comment on above: Performed By: #### C BC ####[facility] Wlyyxkjpax1312[address] [place], [place] [address]Dr. Farhat Leal RBC 3.17 106/ul Critically low 4.70-6.10 [facility] Comment on above: Performed By: #### C BC ####[facility] Tjdozvarej30[address] [place], [place] [address]Dr. Farhat Leal WBC 10.9 103/ul Normal 4.0-11.0 [facility] Comment on above: Performed By: #### C BC ####[facility] Dgjijowmbk85[address] [place], [place] [address]Dr. Farhat Leal CRPon 11-25-2021 CRP 27.2 mg/dL Critically high <=1.0 [facility] Comment on above: Performed By: #### C MP, BNP, CRP ####[facility] Yuhaxxewqi0592 [place] [address]Dr. Farhat Leal PROF 14(COMP METB)on 022 Albumin [Mass/Vol] 1.5 g/dL Critically low 3.4-5.[address] [facility] Comment on above: Performed By: #### C MP, BNP, CRP ####[facility] Ofuuqqbpmg8318 [place] [address]Dr. Farhat Leal Albumin/Globulin [Mass ratio] 0.4 {ratio} Normal [facility] Comment on above: Performed By: #### C MP, BNP, CRP ####[facility] Jeeecvzvhh1226 [place] [address]Dr. Farhat Leal ALP [Catalytic activity/Vol] 86 U/L Normal 46-116 [facility] Comment on above: Performed By: #### C MP, BNP, CRP ####[facility] Gppxkjcptc5224 [place] [address]Dr. Madelynlorri Leal ALT [Catalytic activity/Vol] 34 U/L Normal 16-63 [facility] Comment on above: Performed By: #### C MP, BNP, CRP ####[facility] Tdukdfpmnj8323[address] [place], [place] [address]Dr. Farhat Leal Anion gap [Moles/Vol] 17.8 mmol/L Normal [facility] Comment on above: Performed By: #### C MP, BNP, CRP ####[facility] Nbmimrbwkc1665[address] [place], [place] [address]Dr. Madelynlorri Leal AST [Catalytic activity/Vol] 48 U/L Critically high 15-37 [facility] Comment on above: Performed By: #### C MP, BNP, CRP ####[facility] Frrpbwbltd5357[address] [place], [place] [address]Dr. Madelynlorri Leal Bilirubin [Mass/Vol] 0.8 mg/dL Normal 0.2-1.0 [facility] Comment on above: Performed By: #### C MP, BNP, CRP ####[facility] Rrhcgbzsyr8793[address] [place], [place] [address]Dr. Farhat Leal Calcium [Mass/Vol] 8.3 mg/dL Critically low 8.5-10.1 [facility] Comment on above: Performed By: #### C MP, BNP, CRP ####[facility] Mecwwmxvvh8684[address] [place], [place] [address]Dr. Farhat Leal Chloride [Moles/Vol] 97 mmol/L Critically low 98-107 [facility] Comment on above: Performed By: #### C MP, BNP, CRP ####[facility] Zjsisvegse9974 [place] [address]Dr. Farhat Leal CO2 [Moles/Vol] 23.0 mmol/L Normal 21.0-32.0 [facility] Comment on above: Performed By: #### C MP, BNP, CRP ####[facility] Ruedquuivu5574 [place] [address]Dr. Farhat Leal Creatinine [Mass/Vol] 1.68 mg/dL Critically high 0.70-1.30 [facility] Comment on above: Performed By: #### C MP, BNP, CRP ####[facility] Kkbthiajwn3794[address] [place], [place] [address]Dr. Farhat Leal EGFR-AF ICELANDIC 48 mL/min/1.73m2 Critically low >=60 [facility] Comment on above: Performed By: #### C MP, BNP, CRP ####[facility] Pjzcufrnhc5[address] [place], [place] [address]Dr. Farhat Leal EGFR-NON AF ICELANDIC 40 mL/min/1.73m2 Critically low >=60 [facility] Comment on above: Performed By: #### C MP, BNP, CRP ####[facility] Dxvpdzlrky8711[address] [place], [place] [address]Dr. Farhat Leal Globulin (S) [Mass/Vol] 3.9 g/dL Normal [facility] Comment on above: Performed By: #### C MP, BNP, CRP ####[facility] Oynztmqvrd9[address] [place], [place] [address]Dr. Farhat Leal Glucose [Mass/Vol] 282 mg/dL Critically high 74-106 [facility] Comment on above: Performed By: #### C MP, BNP, CRP ####[facility] Zpdborbkfy24[address] [place], [place] [address]Dr. Farhat Leal Potassium [Moles/Vol] 4.8 mmol/L Normal 3.5-5.1 [facility] Comment on above: Performed By: #### C MP, BNP, CRP ####[facility] Qmcwrfiqhz[address] [place], [place] [address]Dr. Farhat Leal Protein [Mass/Vol] 5.4 g/dL Critically low 6.4-8.[address] [facility] Comment on above: Performed By: #### C MP, BNP, CRP ####[facility] Ftwdgakpga4[address] [place] [address]Dr. Farhat Leal Sodium [Moles/Vol] 133 mmol/L Critically low 136-[address] [facility] Comment on above: Performed By: #### C MP, BNP, CRP ####[facility] Btucjphkjq9612 [place] [address]Dr. Farhat Leal Urea nitrogen [Mass/Vol] 40.0 mg/dL Critically high 7.0-18.0 [facility] Comment on above: Performed By: #### C MP, BNP, CRP ####[facility] Ivwlchjoad8180 [place] [address]Dr. Farhat Leal Urea nitrogen/Creatinine [Mass ratio] 23.8 mg/mg Normal [facility] Comment on above: Performed By: #### C MP, BNP, CRP ####[facility] Sudsvnznyz1278[address] [place], [place] [address]Dr. Farhat Leal PROTIMEon 11-25-2021 INR Coag (PPP) [Relative time] 1.48 {INR} Normal [facility] Comment on above: Performed By: #### P T ####[facility] Iriqcirmfo5916[address] [place], [place] [address]Dr. Farhat Leal INR GUIDELINES SEE BELOW Normal [facility] Comment on above: Result Comment: MALINA RED INR: 2.0 - 3.0 CONDITIONS NOT LISTED BELOW 2.5 - 3.5 FOR PROSTHETIC HEART VALVE REPLACEMENT 2.5 - 3.5 RECURRENT THROMBOSIS Performed By: #### P T ####[facility] Qcmfsmokrs142[address] [place], [place] [address]Dr. Farhat Leal PT Coag (PPP) [Time] 15.6 s Critically high 9.0-11.6 [facility] Comment on above: Performed By: #### P T ####[facility] Vdicpprtkf2217[address] [place], [place] [address]Dr. Farhat Leal SED RATE WESTERGRENon 2021 SED RATE 76 mm/hr Critically high <=20 The [facility] Comment on above: Performed By: #### S EDR ####[facility] Eavnevuimu2677[address] [place], [place] [address]Dr. Farhat Leal BNPon 11-24-2021 Natriuretic peptide B (Bld) [Mass/Vol] 15065.0 pg/mL Critically high <=1,800.0 [facility] Comment on above: Performed By: #### B WIND TURBINE TECHNICIAN, CMP, CRP ####[facility] Ushoiqpmnk[address] [place], [place] [address]Dr. Farhat Leal CBC AUTO DIFFon 11-24-2021 BASO # 0.0 103/ul Normal 0.0-0.1 [facility] Comment on above: Performed By: #### C BC ####[facility] Rsczwucdlx2074[address] [place], [place] [address]Dr. Farhat Leal Basophils/100 WBC (Bld) 0.3 % Normal 0.2-2.0 [facility] Comment on above: Performed By: #### C BC ####[facility] Zwvelwrhoa4[address] [place], [place] [address]Dr. Farhat Leal EO # 0.2 103/ul Normal 0.0-0.7 [facility] Comment on above: Performed By: #### C BC ####[facility] Zxiygnowbz10[address] [place], [place] [address]Dr. Farhat Leal Eosinophils/100 WBC (Bld) 1.2 % Normal 0.9-7.0 [facility] Comment on above: Performed By: #### C BC ####[facility] Hamjywosaw87[address] [place], [place] [address]Dr. Farhat Leal Erythrocyte distribution width (RBC) [Ratio] 13.5 % Normal 11.0-15.0 [facility] Comment on above: Performed By: #### C BC ####[facility] Jzetajwrae[address] [place], [place] [address]Dr. Farhat Leal Hematocrit (Bld) [Volume fraction] 31.1 % Critically low 42.0-54.0 [facility] Comment on above: Performed By: #### C BC ####[facility] Podgeszraz3583 [place] [phone]. Farhat Leal Hemoglobin (Bld) [Mass/Vol] 10.0 g/dL Critically low 14.0-18.0 [facility] Comment on above: Performed By: #### C BC ####[facility] Wuoptahdsg6104 [place] [phone]. Farhat Leal IG # 0.13 10e3/ul Critically high 0.00-0.03 [facility] Comment on above: Performed By: #### C BC ####[facility] Vhacjioqsg6137 [place] [phone]. Farhat Leal IG % 1.0 % Critically high 0.0-0.5 [facility] Comment on above: Performed By: #### C BC ####[facility] Kxjluoflmq5135 [place] [address]DrSkylar Farhat Leal LYMPH # 0.7 103/ul Critically low 1.2-3.8 [facility] Comment on above: Performed By: #### C BC ####[facility] Sdnbujrwml7496 [place] [address]Dr. Farhat Leal Lymphocytes/100 WBC (Bld) 4.9 % Critically low 20.5-60.0 [facility] Comment on above: Performed By: #### C BC ####[facility] Bufisimeia5216 [place] [address]Dr. Farhat Leal MANUAL DIFF REQ NO Normal [facility] Comment on above: Performed By: #### C BC ####[facility] Tvacshpgxa1082 [place] [phone]. Farhat Leal MCH (RBC) [Entitic mass] 29.6 pg Normal 25.9-34.0 [facility] Comment on above: Performed By: #### C BC ####[facility] Fgfavjafri7315 [place] [phone]. Farhat Leal MCHC (RBC) [Mass/Vol] 32.2 g/dL Normal 29.9-35.2 [facility] Comment on above: Performed By: #### C BC ####[facility] Jgxrbmjmoe1501 [place] [phone]. Farhat Leal MCV (RBC) [Entitic vol] 92.0 fL Normal 80.0-94.0 [facility] Comment on above: Performed By: #### C BC ####[facility] Hdofkbhgky0636 [place] [phone] Farhat Leal MONO # 1.3 103/ul Critically high 0.3-0.8 The [facility] Comment on above: Performed By: #### C BC ####[facility] Gjqajbzvkg4807 [place] [phone]. Farhat Elvis Monocytes/100 WBC (Bld) 9.6 % Normal 1.7-12.0 [facility] Comment on above: Performed By: #### C BC ####[facility] Lidxkzkhnw69[address] [place], [place] [address]Dr. Farhat Leal NEUT # 11.2 103/ul Critically high 1.4-6.5 The [facility] Comment on above: Performed By: #### C BC ####[facility] Mufcwnusco3806 [place] [phone]. Farhat Elvis Neutrophils/100 WBC (Bld) 83.0 % Critically high 43.0-75.0 [facility] Comment on above: Performed By: #### C BC ####[facility] Olrgacfady6967 [place] [phone]. Farhat Elvis Platelet mean volume (Bld) [Entitic vol] 9.5 fL Normal 9.5-13.5 [facility] Comment on above: Performed By: #### C BC ####[facility] Ynduxsocqf9257 [place] [phone]. Farhat Elvis PLT 395 103/ul Normal 150-450 [facility] Comment on above: Performed By: #### C BC ####[facility] Qoxesuihbc8287 [place] [phone] Leal RBC 3.38 106/ul Critically low 4.70-6.10 [facility] Comment on above: Performed By: #### C BC ####[facility] Paawwgvezs1649 [place], [place] [address]Nb. Farhat Leal WBC 13.4 103/ul Critically high 4.0-11.0 [facility] Comment on above: Performed By: #### C BC ####[facility] Gtzmhxooth8330 [place], [place] [address]Go. Farhat Leal CRPon 11-24-2021 CRP 27.8 mg/dL Critically high <=1.0 The [facility] Comment on above: Performed By: #### B WIND TURBINE TECHNICIAN, CMP, CRP ####[facility] Zoqkhlidxg5048 [place], [place] [address]Sy. Farhat Leal CULTURE ANAEROBICon 11-25-19 22 CULTURE ANAEROBIC Culture Observations : NO GROWTH OF ANAEROBES AT 72 HOURS. [facility] Comment on above: Performed By: #### A NACX ####[facility] Yzyorcvifv6589 [place] [phone]. Farhat Leal CULTURE ANAEROBIC Culture Observations : NO GROWTH OF ANAEROBES AT 72 HOURS. [facility] Comment on above: Performed By: #### A NACX ####[facility] Xuxxbxoorm5387 [place] [phone]. Farhat Leal CULTURE ANAEROBIC Culture Observations : No growth of anaerobes at 72 hours. [facility] Comment on above: Performed By: #### A NACX ####[facility] Rhbzrtulrm7142 [place] [phone]. Farhat Leal CULTURE ANAEROBIC Culture Observations : No growth of anaerobes at 72 hours. [facility] Comment on above: Performed By: #### A NACX ####[facility] Esjkxihykp3067 [place] [phone]. Farhat Leal CULTURE URINEon 11-24-2021 CULTURE URINE Culture Observations : NO GROWTH. [facility] Comment on above: Performed By: #### U RCX ####[facility] Kmrguzrzwq4596 [place] [phone]. Farhat Leal ECHOCARDIO M/2D COMPLETEon 1 0-10-2022 ECHOCARDIO M/2D COMPLETE Normal [facility] ER URINE PROFILEon 2 Bilirubin Ql (U) Negative Normal NEGATIVE The [facility] Comment on above: Performed By: #### E RUR ####[facility] Rpfsvufmij25[address] [place], [place] [address]Dr. Farhat Leal Clarity (U) CLEAR Normal CLEAR [facility] Comment on above: Performed By: #### E RUR ####[facility] Epdpdexjdg664[address] [place], [place] [address]Dr. Farhat Leal Color (U) YELLOW Normal YELLOW [facility] Comment on above: Performed By: #### E RUR ####[facility] Pijjlaajlx[address] [place], [place] [address]Dr. Farhat Leal ERUAHD A micrscopic examination will be performed if indicated. Normal [facility] Comment on above: Performed By: #### E RUR ####[facility] Nfkwxzabae1879[address] [place], [place] [address]Dr. Farhat Leal Glucose Ql (U) Negative Normal NEGATIVE The [facility] Comment on above: Performed By: #### E RUR ####[facility] Irhmhdwnmj3169[address] [place], [place] [address]Dr. Farhat Leal Hemoglobin Ql (U) Negative Normal NEGATIVE The [facility] Comment on above: Performed By: #### E RUR ####[facility] Uknaqwilyk0467[address] [place], [place] [address]Dr. Farhat Leal Ketones Ql (U) TRACE Abnormal NEGATIVE The [facility] Comment on above: Performed By: #### E RUR ####[facility] Aoaomwzacj1522[address] [place], [place] [address]Dr. Farhat Leal LEUKOCYTES Negative Normal NEGATIVE [facility] Comment on above: Performed By: #### E RUR ####[facility] Tcajqhtqkb6443[address] [place], [place] [address]Dr. Farhat Leal Nitrite Ql (U) Negative Normal NEGATIVE The [facility] Comment on above: Performed By: #### E RUR ####[facility] Lqwacdagop6695[address] [place], [place] [address]DrSkylar Leal pH (U) 5.5 [pH] Normal 5-9 [facility] Comment on above: Performed By: #### E RUR ####[facility] Kgaqixoikn17[address] [place], [place] [address]Dr. Farhat Leal SPEC GRAVITY 1.015 Normal 1.005-<=1.02 5 [facility] Comment on above: Performed By: #### E RUR ####[facility] Cnfbtjehth8457[address] [place], [place] [address]Dr. Farhat Leal UA PROTEIN Negative Normal NEGATIVE/ TRACE [facility] Comment on above: Performed By: #### E RUR ####[facility] Lirfvglrdi966[address] [place], [place] [address]Dr. Farhat Leal UR MICRO IND NOT INDICATED Normal The [facility] Comment on above: Performed By: #### E RUR ####[facility] Soovgpaepg15[address] [place], [place] [address]Dr. Farhat Leal Urobilinogen Qn (U) 0.2 {Boyd'U}/dL Normal 0.2 - 1. 0 [facility] Comment on above: Performed By: #### E RUR ####[facility] Zqxzqbfiji3063[address] [place], [place] [address]Dr. Farhat Leal GRAM STAINon 11-24-2021 DIPHTHEROIDS Normal [facility] Comment on above: Performed By: #### G STAIN ####[facility] Xownnhyfbg[address] [place], [place] [address]Dr. Farhat Leal EPITHELIALS Normal [facility] Comment on above: Performed By: #### G STAIN ####[facility] Bmknqdlcer4537[address] [place], [place] [address]Dr. Farhat Leal FUNGAL ELEMENTS Normal The [facility] Comment on above: Performed By: #### G STAIN ####[facility] Ikrwaazymx5532[address] [place], [place] [address]Dr. Farhat Leal GRAM NEG BACILLI Normal The [facility] Comment on above: Performed By: #### G STAIN ####[facility] Yktkfdnotl374[address] [place], [place] [address]Dr. Farhat Leal GRAM NEG DIPPLOCOCCI Normal [facility] Comment on above: Performed By: #### G STAIN ####[facility] Irnfpbsxrv5590 [place] [address]Dr. Farhat Leal GRAM POS BACILLI Normal The [facility] Comment on above: Performed By: #### G STAIN ####[facility] Xbqiegsfsg2582 [place] [address]Dr. Farhat Leal GRAM POSITIVE COCCI FEW Normal The [facility] Comment on above: Performed By: #### G STAIN ####[facility] Lkazthyaui39[address] [place], [place] [address]Dr. Farhat Leal GRAM STAIN SOURCE RT ACHILLES TENDON Normal [facility] Comment on above: Performed By: #### G STAIN ####[facility] Pvxedarphh1434[address] [place], [place] [address]Dr. Farhat Leal GS_DIPTH Normal [facility] Comment on above: Performed By: #### G STAIN ####[facility] Fpipnplaqr7264[address] [place], [place] [address]Dr. Farhat Leal WBC RARE Normal [facility] Comment on above: Performed By: #### G STAIN ####[facility] Zrqpykfzdz9[address] [place], [place] [address]Dr. Farhat Leal COMMENTS NO ORGANISMS OBSERVED Normal [facility] Comment on above: Performed By: #### G STAIN ####[facility] Zwciexytbr[address] [place], [place] [address]Dr. Farhat Leal DIPHTHEROIDS Normal [facility] Comment on above: Performed By: #### G STAIN ####[facility] Ufwyvprfra7831 [place] [address]Dr. Farhat Leal EPITHELIALS Normal [facility] Comment on above: Performed By: #### G STAIN ####[facility] Putssavrib[address] [place], [place] [address]Dr. Farhat Leal FUNGAL ELEMENTS Normal The [facility] Comment on above: Performed By: #### G STAIN ####[facility] Ychgqhwibu[address] [place], [place] [address]Dr. Farhat Leal GRAM NEG BACILLI Normal The [facility] Comment on above: Performed By: #### G STAIN ####[facility] Ezuwyiahzx5828 [place] [phone]. Farhat Leal GRAM NEG DIPPLOCOCCI Normal [facility] Comment on above: Performed By: #### G STAIN ####[facility] Cnbdjidkvb9557 [place] [phone]. Farhat Leal GRAM POS BACILLI Normal The [facility] Comment on above: Performed By: #### G STAIN ####[facility] Sjyicmqnix24[address] [place] [address]Dr. Farhat Leal GRAM POSITIVE COCCI Normal [facility] Comment on above: Performed By: #### G STAIN ####[facility] Hbyvtyfhgb1884 [place] [address]Dr. Farhat Leal GRAM STAIN SOURCE RT CALCANEOUS Normal [facility] Comment on above: Performed By: #### G STAIN ####[facility] [address]zxlepmech[address] [place], [place] [address]Dr. Farhat Leal GS_DIPTH Normal [facility] Comment on above: Performed By: #### G STAIN ####[facility] Vbileivbkj[address] [place] [address]Dr. Farhat Leal WBC RARE Normal [facility] Comment on above: Performed By: #### G STAIN ####[facility] Uqlwemwnfo26[address] [place] [address]Dr. Farhat Leal DIPHTHEROIDS Normal [facility] Comment on above: Performed By: #### G STAIN ####[facility] Acyosydhry[address] [place] [address]Dr. Farhat Leal EPITHELIALS Normal [facility] Comment on above: Performed By: #### G STAIN ####[facility] Zzwzyidfjz69[address] [place] [address]Dr. Farhat Leal FUNGAL ELEMENTS Normal The [facility] Comment on above: Performed By: #### G STAIN ####[facility] Eolpfvrcno5[address] [place] [address]Dr. Farhat Leal GRAM NEG BACILLI FEW Normal The [facility] Comment on above: Performed By: #### G STAIN ####[facility] Hnulphhhut[address] [place] [id number]. Farhat Leal GRAM NEG DIPPLOCOCCI Normal [facility] Comment on above: Performed By: #### G STAIN ####[facility] Vqolvokrfb2[address] [place] [address]Dr. Farhat Leal GRAM POS BACILLI Normal The [facility] Comment on above: Performed By: #### G STAIN ####[facility] Mlurzphorf[address] [place] [address]Dr. Farhat Leal GRAM POSITIVE COCCI FEW Normal The [facility] Comment on above: Performed By: #### G STAIN ####[facility] Sfkzkfqfwc4[address] [place] [address]Dr. Farhat Leal GRAM STAIN SOURCE #2 Rt foot abscess Normal [facility] Comment on above: Performed By: #### G STAIN ####[facility] Mhtsscksff67[address] [place] [address]Dr. Farhat Leal GS_DIPTH Normal [facility] Comment on above: Performed By: #### G STAIN ####[facility] Sgswjmneaz[address] [place], [place] [address]Dr. Farhat Leal WBC RARE Normal [facility] Comment on above: Performed By: #### G STAIN ####[facility] Qxqxywharq4186 [place] [address]Dr. Farhat Leal DIPHTHEROIDS Normal [facility] Comment on above: Performed By: #### G STAIN ####[facility] Lgdsomisrh4344 [place] [address]Dr. Farhat Leal EPITHELIALS Normal [facility] Comment on above: Performed By: #### G STAIN ####[facility] Qspzdxjyqw79[address] [place] [address]Dr. Farhat Leal FUNGAL ELEMENTS Normal The [facility] Comment on above: Performed By: #### G STAIN ####[facility] Xkhkvapzrd6456 [place] [address]Dr. Farhat Leal GRAM NEG BACILLI FEW Normal The [facility] Comment on above: Performed By: #### G STAIN ####[facility] Gjorgbxboh5[address] [place] [address]Dr. Farhat Leal GRAM NEG DIPPLOCOCCI Normal [facility] Comment on above: Performed By: #### G STAIN ####[facility] Webunznyre8853 [place] [address]Dr. Farhat Leal GRAM POS BACILLI Normal The [facility] Comment on above: Performed By: #### G STAIN ####[facility] Jlxqieqwfp4702 [place] [address]Dr. Farhat Leal GRAM POSITIVE COCCI FEW Normal The [facility] Comment on above: Performed By: #### G STAIN ####[facility] Twdsndvmru2538 [place] [address]Dr. Farhat Leal GRAM STAIN SOURCE #1 Rt foot abscess Normal [facility] Comment on above: Performed By: #### G STAIN ####[facility] Cveaelemvc[address] [place], [place] [address]Dr. Farhat Leal GS_DIPTH Normal [facility] Comment on above: Performed By: #### G STAIN ####[facility] Rsvixsyedp26[address] [place], [place] [address]Dr. Farhat Leal WBC NONE SEEN Normal [facility] Comment on above: Performed By: #### G STAIN ####[facility] Ccktfrtyps12[address] [place], [place] [address]Dr. Farhat Leal POINT OF CARE GLUCOSEon 11-15 Glucose [Mass/Vol] 331 mg/dL Critically high 74-106 [facility] Comment on above: Performed By: #### P OCGLUC ####[facility] Zqiwtgtefg6[address] [place], [place] [address]Dr. Farhat Leal Glucose [Mass/Vol] 236 mg/dL Critically high 74-106 [facility] Comment on above: Performed By: #### P OCGLUC ####[facility] Otxxwsvuor706[address] [place], [place] [address]Dr. Farhta Leal PROF 14(COMP METB)on 022 Albumin [Mass/Vol] 1.6 g/dL Critically low 3.4-5.[address] [facility] Comment on above: Performed By: #### B WIND TURBINE TECHNICIAN, CMP, CRP ####[facility] Ligfnummab1449 [place] [address]Dr. Farhat Leal Albumin/Globulin [Mass ratio] 0.4 {ratio} Normal [facility] Comment on above: Performed By: #### B WIND TURBINE TECHNICIAN, CMP, CRP ####[facility] Ntfakmwzfh1531 [place] [address]Dr. Farhat Leal ALP [Catalytic activity/Vol] 94 U/L Normal 46-116 [facility] Comment on above: Performed By: #### B WIND TURBINE TECHNICIAN, CMP, CRP ####[facility] Xrrywpwrcv75[address] [place], [place] [address]Dr. Farhat Leal ALT [Catalytic activity/Vol] 49 U/L Normal 16-63 [facility] Comment on above: Performed By: #### B WIND TURBINE TECHNICIAN, CMP, CRP ####[facility] Meanakzdvq1154[address] [place], [place] [address]Dr. Farhat Leal Anion gap [Moles/Vol] 12.5 mmol/L Normal [facility] Comment on above: Performed By: #### B WIND TURBINE TECHNICIAN, CMP, CRP ####[facility] Outniyavnu9099[address] [place], [place] [address]Dr. Farhat Leal AST [Catalytic activity/Vol] 102 U/L Critically high 15-37 [facility] Comment on above: Performed By: #### B WIND TURBINE TECHNICIAN, CMP, CRP ####[facility] Otztxzwxst203[address] [place], [place] [address]Dr. Farhat Leal Bilirubin [Mass/Vol] 0.8 mg/dL Normal 0.2-1.0 [facility] Comment on above: Performed By: #### B WIND TURBINE TECHNICIAN, CMP, CRP ####[facility] Ykxqecvlqb4445[address] [place], [place] [address]Dr. Farhat Leal Calcium [Mass/Vol] 8.4 mg/dL Critically low 8.5-10.1 [facility] Comment on above: Performed By: #### B WIND TURBINE TECHNICIAN, CMP, CRP ####[facility] Gbjklrvpup8697[address] [place], [place] [address]Dr. Farhat Leal Chloride [Moles/Vol] 96 mmol/L Critically low 98-107 [facility] Comment on above: Performed By: #### B WIND TURBINE TECHNICIAN, CMP, CRP ####[facility] Rnctajmqpn8919 [place] [address]Dr. Farhat Leal CO2 [Moles/Vol] 24.8 mmol/L Normal 21.0-32.0 [facility] Comment on above: Performed By: #### B WIND TURBINE TECHNICIAN, CMP, CRP ####[facility] Fkqbnzxbpw3105 [place] [address]Dr. Farhat Leal Creatinine [Mass/Vol] 1.36 mg/dL Critically high 0.70-1.30 [facility] Comment on above: Performed By: #### B WIND TURBINE TECHNICIAN, CMP, CRP ####[facility] Evylfusafl7758[address] [place], [place] [address]Dr. Farhat Leal EGFR-AF ICELANDIC >60 Normal >=60 [facility] Comment on above: Performed By: #### B WIND TURBINE TECHNICIAN, CMP, CRP ####[facility] Zumwpejsvg[address] [place], [place] [address]Dr. Farhat Leal EGFR-NON AF ICELANDIC 51 mL/min/1.73m2 Critically low >=60 [facility] Comment on above: Performed By: #### B WIND TURBINE TECHNICIAN, CMP, CRP ####[facility] Qrsduwscsc5717[address] [place], [place] [address]Dr. Farhat Leal Globulin (S) [Mass/Vol] 4.1 g/dL Normal [facility] Comment on above: Performed By: #### B WIND TURBINE TECHNICIAN, CMP, CRP ####[facility] Dbfoneabxd2424[address] [place], [place] [address]Dr. Farhat Leal Glucose [Mass/Vol] 204 mg/dL Critically high 74-106 [facility] Comment on above: Performed By: #### B WIND TURBINE TECHNICIAN, CMP, CRP ####[facility] Ijbjacihyp4029[address] [place], [place] [address]Dr. Farhat Leal Potassium [Moles/Vol] 4.3 mmol/L Normal 3.5-5.1 [facility] Comment on above: Performed By: #### B WIND TURBINE TECHNICIAN, CMP, CRP ####[facility] Jysuommjsc6307[address] [place], [place] [address]Dr. Farhat Leal Protein [Mass/Vol] 5.7 g/dL Critically low 6.4-8.[address] [facility] Comment on above: Performed By: #### B WIND TURBINE TECHNICIAN, CMP, CRP ####[facility] Zbdlthpdvp0419 [place] [address]Dr. Farhat Leal Sodium [Moles/Vol] 129 mmol/L Critically low 136-[address] [facility] Comment on above: Performed By: #### B WIND TURBINE TECHNICIAN, CMP, CRP ####[facility] Uwkzpwdmow7[address] [place] [address]Dr. Farhat Leal Urea nitrogen [Mass/Vol] 41.0 mg/dL Critically high 7.0-18.0 [facility] Comment on above: Performed By: #### B WIND TURBINE TECHNICIAN, CMP, CRP ####[facility] Xudunulaon0538 [place] [address]Dr. Farhat Leal Urea nitrogen/Creatinine [Mass ratio] 30.1 mg/mg Normal [facility] Comment on above: Performed By: #### B WIND TURBINE TECHNICIAN, CMP, CRP ####[facility] Fqkwsctmdb9[address] [place], [place] [address]Dr. Farhat Leal PROTIMEon 11-24-2021 INR Coag (PPP) [Relative time] 2.20 {INR} Normal [facility] Comment on above: Performed By: #### P T ####[facility] Mfvidtcpgk67[address] [place], [place] [address]Dr. Farhat Leal INR GUIDELINES SEE BELOW Normal The [facility] Comment on above: Result Comment: MALINA RED INR: 2.0 - 3.0 CONDITIONS NOT LISTED BELOW 2.5 - 3.5 FOR PROSTHETIC HEART VALVE REPLACEMENT 2.5 - 3.5 RECURRENT THROMBOSIS Performed By: #### P T ####[facility] Zrdpmrwiad11[address] [place], [place] [address]Dr. Farhat Leal PT Coag (PPP) [Time] 22.6 s Critically high 9.0-11.6 [facility] Comment on above: Performed By: #### P T ####[facility] Vwpbluxpys4[address] [place], [place] [address]Dr. Farhat Leal SED RATE WESTERGRENon 2021 SED RATE 80 mm/hr Critically high <=20 The [facility] Comment on above: Performed By: #### S EDR ####[facility] Mossyqknna[address] [place] [phone]. Farhat Leal BLOOD CULTURE ID PANELon A. baumannii Not detected Normal NOT DETECTED The [facility] Comment on above: Performed By: #### B CID2 ####[facility] Opbzckourj0303 [place] [phone]. Farhat Leal Bacteriodes fragilis Not detected Normal NOT DETECTED [facility] Comment on above: Performed By: #### B CID2 ####[facility] Xkjleyekef0613 [place] [address]Dr. Farhat Elvis BCID CONTROLS PASSED Normal The [facility] Comment on above: Performed By: #### B CID2 ####[facility] Teqdgaghvt1699 [place] [phone]. Madelynlorri Elvis BCIDBTHD BLOOD CULTURE BOTTLE INFORMATION Normal [facility] Comment on above: Performed By: #### B CID2 ####[facility] Yaqzafecet1572 [place] [phone]. Farhat Leal BCIDHD1 ANTIMICROBIAL RESISTANCE GENES Normal [facility] Comment on above: Performed By: #### B CID2 ####[facility] Ueduckvvlc8490 [place] [address]Dr. Farhat Leal BCIDHD2 SEE BELOW Normal [facility] Comment on above: Result Comment: Note : Antimicrobial resitance can occur via multiple mechanisms. A Not Detected result for the [employer] antomicrobial resistance gene assays does not indicate antimicrobial susceptibility. Subculturing is required for species identification and susceptibility testing of isolates. Performed By: #### B CID2 ####[facility] Fqyljvabdt74[address] [place], [place] [address]Dr. Farhat Leal BCIDHD3 Positive Normal [facility] Comment on above: Performed By: #### B CID2 ####[facility] Gdsyhnjhqt54[address] [place] [phone]. Farhat Leal BCIDHD4 Negative Normal [facility] Comment on above: Performed By: #### B CID2 ####[facility] Ncmdetngdt8488 [place] [address]Dr. Farhat Leal BCIDHD5 YEAST Normal [facility] Comment on above: Performed By: #### B CID2 ####[facility] Wloqstcvjs4785 [place] [address]Dr. Yilan Leal Bottle Set: Set 1 Normal [facility] Comment on above: Performed By: #### B CID2 ####[facility] Trmmjktvio6325 [place] [address]Dr. Farhat Leal Bottle: Aerobic Normal [facility] Comment on above: Performed By: #### B CID2 ####[facility] Woulzbtkhs1026[address] [place], [place] [address]Dr. Farhat Leal C. neoformans/gattii Not detected Normal NOT DETECTED [facility] Comment on above: Performed By: #### B CID2 ####[facility] Yqjvmrtxdy9375[address] [place], [place] [address]Dr. Yilorri Leal Disha albicans Not detected Normal NOT DETECTED [facility] Comment on above: Performed By: #### B CID2 ####[facility] Skjlopmvem479[address] [place], [place] [address]Dr. Farhat Leal Disha auris Not detected Normal NOT DETECTED The [facility] Comment on above: Performed By: #### B CID2 ####[facility] Whrnclgxfd3942[address] [place], [place] [address]Dr. Yilorri Leal Disha glabrata Not detected Normal NOT DETECTED [facility] Comment on above: Performed By: #### B CID2 ####[facility] Qwencyldzj1289 [place] [address]Dr. Yilorri Leal Disha Krusei Not detected Normal NOT DETECTED The [facility] Comment on above: Performed By: #### B CID2 ####[facility] Lafgaqamho397[address] [place], [place] [address]Dr. Yilorri Leal Disha Parapsilosis Not detected Normal NOT DETECTED [facility] Comment on above: Performed By: #### B CID2 ####[facility] Netryrmtns[address] [place], [place] [address]Dr. Farhat Leal Disha Tropicalis Not detected Normal NOT DETECTED [facility] Comment on above: Performed By: #### B CID2 ####[facility] Hyivivirdn2278[address] [place], [place] [address]Dr. Farhat Leal CTX-M Resistant Gene Not Applicable Normal NOT DETECTE D [facility] Comment on above: Performed By: #### B CID2 ####[facility] Iqgnlytcpt7[address] [place], [place] [address]Dr. Farhat Leal E. Cloacae complex Not detected Normal NOT DETECTED [facility] Comment on above: Performed By: #### B CID2 ####[facility] Sqgplttvaq[address] [place], [place] [address]Dr. Farhat Leal E. faecalis Not detected Normal NOT DETECTED The [facility] Comment on above: Performed By: #### B CID2 ####[facility] Lwoqbkhmvx6206[address] [place], [place] [address]Dr. Farhat Leal E. faecium Not detected Normal NOT DETECTED The [facility] Comment on above: Performed By: #### B CID2 ####[facility] Plmajlpsbg4868[address] [place], [place] [address]Dr. Farhat Leal Enterobacteriaceae Not detected Normal NOT DETECTED [facility] Comment on above: Performed By: #### B CID2 ####[facility] Icqlsfuogi0495[address] [place], [place] [address]Dr. Farhat Leal Escherichia coli Not detected Normal NOT DETECTED [facility] Comment on above: Performed By: #### B CID2 ####[facility] Hrfdwewgpv468[address] [place], [place] [address]Dr. Farhat Leal H. influenzae Not detected Normal NOT DETECTED The [facility] Comment on above: Performed By: #### B CID2 ####[facility] Yvjqkozwuv757[address] [place], [place] [address]Dr. Farhat Leal IMP Resistant Gene Not Applicable Normal NOT DETECTED [facility] Comment on above: Performed By: #### B CID2 ####[facility] Gwaiqbccir2138[address] [place], [place] [address]Dr. Farhat Leal K. oxytoca Not detected Normal NOT DETECTED The [facility] Comment on above: Performed By: #### B CID2 ####[facility] Rbvpqrbxan7575 [place] [address]Dr. Farhat Leal K. pneumoniae Not detected Normal NOT DETECTED The [facility] Comment on above: Performed By: #### B CID2 ####[facility] Hgsgipsgya9239 [place] [phone]. Farhat Leal Klebsiella aerogenes Not detected Normal NOT DETECTED [facility] Comment on above: Performed By: #### B CID2 ####[facility] Phwxmnsxfu6062[address] [place], [place] [address]Dr. Farhat Leal KPC Resistant Gene Not Applicable Normal NOT DETECTED [facility] Comment on above: Performed By: #### B CID2 ####[facility] Dwwftszvmb9013[address] [place], [place] [address]Dr. Farhat Leal List. monocytogenes Not detected Normal NOT DETECTED [facility] Comment on above: Performed By: #### B CID2 ####[facility] Ttmsqeiyjq5562[address] [place], [place] [address]Dr. Farhat Leal Mcr-1 Resistant Gene Not Applicable Normal NOT DETECTE D [facility] Comment on above: Performed By: #### B CID2 ####[facility] Ehxqzqtydr1542[address] [place], [place] [address]Dr. Farhat Leal mecA/C Not Applicable Normal NOT DETECTED The [facility] Comment on above: Performed By: #### B CID2 ####[facility] Anumyzagmw3858 [place] [address]Dr. Farhat Leal mecA/C MREJ Detected Abnormal NOT DETECTED The [facility] Comment on above: Performed By: #### B CID2 ####[facility] Rjxifnrmzp018[address] [place], [place] [address]Dr. Farhat Leal N. meningitidis Not detected Normal NOT DETECTED The [facility] Comment on above: Performed By: #### B CID2 ####[facility] Dmzbfhstnw9707[address] [place], [place] [address]Dr. Farhat Leal NDM Resistant Gene Not Applicable Normal NOT DETECTED [facility] Comment on above: Performed By: #### B CID2 ####[facility] Cobdyftfjh100[address] [place], [place] [address]Dr. Farhat Leal Oxa-48-like Not Applicable Normal NOT DETECTED The [facility] Comment on above: Performed By: #### B CID2 ####[facility] Ujscbstqva4417[address] [place], [place] [address]Dr. Farhat Leal Proteus Not detected Normal NOT DETECTED The [facility] Comment on above: Performed By: #### B CID2 ####[facility] Fpixklgmmq9213[address] [place], [place] [address]Dr. Farhat Leal Pseud. aeruginosa Not detected Normal NOT DETECTED [facility] Comment on above: Performed By: #### B CID2 ####[facility] Kyipcdgvnz0738[address] [place], [place] [address]Dr. Farhat Leal S. maltophilia Not detected Normal NOT DETECTED The [facility] Comment on above: Performed By: #### B CID2 ####[facility] Turaemovhc5478[address] [place], [place] [address]Dr. Farhat Leal Salmonella Not detected Normal NOT DETECTED The [facility] Comment on above: Performed By: #### B CID2 ####[facility] Ougmiwhyqm348[address] [place], [place] [address]Dr. Farhat Leal Seratia marcescens Not detected Normal NOT DETECTED [facility] Comment on above: Performed By: #### B CID2 ####[facility] Sbrhfmbgrz9901[address] [place], [place] [address]Dr. Farhat Leal Site: Rt Hand Normal [facility] Comment on above: Performed By: #### B CID2 ####[facility] Dolemakwnt9443[address] [place], [place] [address]Dr. Farhat Leal Staph. aureus Detected Abnormal NOT DETECTED The [facility] Comment on above: Performed By: #### B CID2 ####[facility] Acvjvmdley9927[address] [place], [place] [address]Dr. Farhat Leal Staph. epidermidis Not detected Normal NOT DETECTED [facility] Comment on above: Performed By: #### B CID2 ####[facility] Jcqcfgcvzj9057[address] [place], [place] [address]Dr. Farhat Leal Staph. lugdunensis Not detected Normal NOT DETECTED [facility] Comment on above: Performed By: #### B CID2 ####[facility] Qkcnnayjpa7456[address] [place], [place] [address]Dr. Farhat Leal Staphylococcus Detected Abnormal NOT DETECTED The [facility] Comment on above: Performed By: #### B CID2 ####[facility] Aofeyhrghd020[address] [place], [place] [address]Dr. Farhat Leal Strep. agalactiae Not detected Normal NOT DETECTED The [facility] Comment on above: Performed By: #### B CID2 ####[facility] Ngelftjqyd8225[address] [place], [place] [address]Dr. Farhat Leal Strep. pneumoniae Not detected Normal NOT DETECTED The [facility] Comment on above: Performed By: #### B CID2 ####[facility] Sccsvcsbqs6783[address] [place], [place] [address]Dr. Farhat Leal Strep. pyogenes Not detected Normal NOT DETECTED The [facility] Comment on above: Performed By: #### B CID2 ####[facility] Ebultakbis9468[address] [place], [place] [address]Dr. Farhat Leal Streptococcus Not detected Normal NOT DETECTED The [facility] Comment on above: Performed By: #### B CID2 ####[facility] Mzakqebdle[address] [place], [place] [address]Dr. Farhat Leal Teodoro/B Resist. Gene Not Applicable Normal NOT DETECTED The [facility] Comment on above: Performed By: #### B CID2 ####[facility] Dyvinalkop6788[address] [place], [place] [address]Dr. Farhat Leal VIM Resistant Gene Not Applicable Normal NOT DETECTED The [facility] Comment on above: Performed By: #### B CID2 ####[facility] Axpweuosvs[address] [place], [place] [address]Dr. Farhat Leal BNPon 11-23-2021 Natriuretic peptide B (Bld) [Mass/Vol] 96010.0 pg/mL Critically high <=1,800.0 The [facility] Comment on above: Performed By: #### C MP, CMADM, BNP ####[facility] Ozeblyheqt8[address] [place] [address]Dr. Farhat Leal CARDIAC AMANDA ADMITon 022 CK [Catalytic activity/Vol] 41 U/L Normal 39-308 [facility] Comment on above: Performed By: #### C MP, CMADM, BNP ####[facility] Ioydubzsku3852 [place] [address]Dr. Farhat Leal CK.MB [Mass/Vol] 0.98 ng/mL Normal <=3.60 The [facility] Comment on above: Performed By: #### C MP, CMADM, BNP ####[facility] Exdykrayah044[address] [place] [address]Dr. Farhat Leal HSTROP 30.1 pg/mL Normal 4.0-76.1 [facility] Comment on above: Result Comment: CUT- OFF POINTS HAVE BEEN ESTABLISHED BASED ON THE FOURTH UNIVERSAL DEFINITIONS OF MYOCARDIALINFARCTION. THE UPPER REFERENCE LIMIT (URL) OF TROPONIN, DEFINED THE 99TH PERCENTILE OFcTnI DISTRIBUTION IN A REFERENCE POPULATION, HAS BEEN CONFIRMED THE DECISION THRESHOLDFOR [place] DIAGNOSIS. Performed By: #### C MP, CMADM, BNP ####[facility] Gewlrijnwc[address] [place] [address]Dr. Madelynlorri Leal VALERIA 160 ng/mL Critically high 16-96 The [facility] Comment on above: Performed By: #### C MP, CMADM, BNP ####[facility] Rfolcohfgf4087 [place] [address]Dr. Farhat Elvis CBC AUTO DIFFon 11-23-2021 BASO # 0.0 103/ul Normal 0.0-0.1 [facility] Comment on above: Performed By: #### C BC ####[facility] Ujhrgblbpa[address] [place] [address]Dr. Farhat Leal Basophils/100 WBC (Bld) 0.2 % Normal 0.2-2.0 [facility] Comment on above: Performed By: #### C BC ####[facility] Ngawjvnkxj[address] [place] [address]Dr. Farhat Leal EO # 0.0 103/ul Normal 0.0-0.7 [facility] Comment on above: Performed By: #### C BC ####[facility] [address]zvmfgie[address] [place] [address]Dr. Farhat Leal Eosinophils/100 WBC (Bld) 0.1 % Critically low 0.9-7.0 [facility] Comment on above: Performed By: #### C BC ####[facility] Niyqtwhczs2476 [place] [address]Dr. Farhat Leal Erythrocyte distribution width (RBC) [Ratio] 13.4 % Normal 11.0-15.0 [facility] Comment on above: Performed By: #### C BC ####[facility] Gaungfbwja68[address] [place], [place] [address]Dr. Farhat Leal Hematocrit (Bld) [Volume fraction] 31.6 % Critically low 42.0-54.0 The [facility] Comment on above: Performed By: #### C BC ####[facility] Ytnjxbhbci5[address] [place], [place] [address]Dr. Farhat Leal Hemoglobin (Bld) [Mass/Vol] 10.4 g/dL Critically low 14.0-18.0 The [facility] Comment on above: Performed By: #### C BC ####[facility] Ydbkkstxiv6[address] [place], [place] [address]Dr. Farhat Leal IG # 0.11 10e3/ul Critically high 0.00-0.03 The [facility] Comment on above: Performed By: #### C BC ####[facility] Oqtcmeyxif4[address] [place] [address]Dr. Farhat Leal IG % 0.7 % Critically high 0.0-0.5 The [facility] Comment on above: Performed By: #### C BC ####[facility] Ezeawdfgae[address] [place], [place] [address]Dr. Farhat Leal LYMPH # 0.5 103/ul Critically low 1.2-3.8 The [facility] Comment on above: Performed By: #### C BC ####[facility] Uhnomnmjuv[address] [place] [id number]. Farhat Elvis Lymphocytes/100 WBC (Bld) 2.8 % Critically low 20.5-60.0 [facility] Comment on above: Performed By: #### C BC ####[facility] Ecfqkcanwq6108 [place] [address]Dr. Madelynlorri Leal MANUAL DIFF REQ NO Normal The [facility] Comment on above: Performed By: #### C BC ####[facility] Elpahlrdku[address] [place] [address]Dr. Madelynlorri Leal MCH (RBC) [Entitic mass] 29.8 pg Normal 25.9-34.0 [facility] Comment on above: Performed By: #### C BC ####[facility] Zsdbvkmkey0[address] [place], [place] [address]Dr. Farhat Leal MCHC (RBC) [Mass/Vol] 32.9 g/dL Normal 29.9-35.2 [facility] Comment on above: Performed By: #### C BC ####[facility] Sbdzjdfvgb8743 [place] [address]Dr. Farhat Leal MCV (RBC) [Entitic vol] 90.5 fL Normal 80.0-94.0 The [facility] Comment on above: Performed By: #### C BC ####[facility] Rpkpbpolye5[address] [place], [place] [address]Dr. Farhat Leal MONO # 1.3 103/ul Critically high 0.3-0.8 The [facility] Comment on above: Performed By: #### C BC ####[facility] Hqqgpmxgrf4136 [place] [address]Dr. Farhat Leal Monocytes/100 WBC (Bld) 8.3 % Normal 1.7-12.0 The [facility] Comment on above: Performed By: #### C BC ####[facility] Afotdcxycg9876[address] [place], [place] [address]Dr. Farhat Leal NEUT # 13.9 103/ul Critically high 1.4-6.5 The [facility] Comment on above: Performed By: #### C BC ####[facility] Vabsjrguzo6162 [place], [place] [address]Ql. Farhat Leal Neutrophils/100 WBC (Bld) 87.9 % Critically high 43.0-75.0 [facility] Comment on above: Performed By: #### C BC ####[facility] Dcnzslywqv3087 [place], [place] [address]Pl. Farhat Leal Platelet mean volume (Bld) [Entitic vol] 9.3 fL Critically low 9.5-13.5 The [facility] Comment on above: Performed By: #### C BC ####[facility] Zlxchzhcig0875 [place], [place] [address]Of. Farhat Leal PLT 390 103/ul Normal 150-450 The [facility] Comment on above: Performed By: #### C BC ####[facility] Dfrbjydsbs1832 [place], [place] [address]Sm. Farhat Leal RBC 3.49 106/ul Critically low 4.70-6.10 The [facility] Comment on above: Performed By: #### C BC ####[facility] Yjkezpqksb9111 [place], [place] [address]Cs. Farhat Leal WBC 15.9 103/ul Critically high 4.0-11.0 The [facility] Comment on above: Performed By: #### C BC ####[facility] Fsizkcpcia0518 [place], [place] [address]Vj. Farhat Leal CT HEAD WO CONon 11-23-2021 CT HEAD WO CON Normal The [facility] CULTURE BLOODon 11-23-2021 Microscopic examination of blood, culture Culture Observations: NO GROWTH AT 5 DAYS. Normal The [facility] Comment on above: Performed By: #### B LDCX2 ####[facility] Ssjjmdjhag83[address] [place] [phone]. Farhat Leal [facility]on SARS-CoV-2 (COVID-19) RNA JOSH+probe Ql (Unsp spec) Not detected Normal NOT DETECTED The [facility] Comment on above: Result Comment: [...] for this test is supported by the [place] of Health and Human Service's declaration that [...] be used). Performed By: #### C VDTBH ####[facility] Etqobjtlyo55[address] [place], [place] [address]DrSkylar Leal LACTATE/LACTIC ACIDon 2021 Lactate [Moles/Vol] 1.3 mmol/L Normal 0.4-1.9 [facility] Comment on above: Performed By: #### L ACT ####[facility] Foymkfavex[address] [place], [place] [address]DrSkylar Leal Lactate [Moles/Vol] 1.3 mmol/L Normal 0.4-1.9 [facility] Comment on above: Performed By: #### L ACT ####[facility] Qgzbkdcovc6[address] [place], [place] [address]DrSkylar Leal POINT OF CARE GLUCOSEon Glucose [Mass/Vol] 252 mg/dL Critically high 74-106 [facility] Comment on above: Performed By: #### P OCGLUC ####[facility] Njmysidfqr2219[address] [place], [place] [address]DrSkylar Leal PROF 14(COMP METB)on 022 Albumin [Mass/Vol] 1.6 g/dL Critically low 3.4-5.0 [facility] Comment on above: Performed By: #### C MP, CMADM, BNP ####[facility] Eqqnxjaanz[address] [place], [place] [address]DrSkylar Leal Albumin/Globulin [Mass ratio] 0.4 {ratio} Normal [facility] Comment on above: Performed By: #### C FATMATA MARROQUINDM, BNP ####[facility] Ourbkxzwjw01[address] [place] [address]Dr. Farhat Leal ALP [Catalytic activity/Vol] 98 U/L Normal 46-116 [facility] Comment on above: Performed By: #### C MP CMADM, BNP ####[facility] Qzdgkjvsoi0460 [place] [address]Dr. Farhat Leal ALT [Catalytic activity/Vol] 52 U/L Normal 16-63 [facility] Comment on above: Performed By: #### C CARA CMADM, BNP ####[facility] Pcpwbspnxn1567 [place] [address]Dr. Madelynlorri Elvis Anion gap [Moles/Vol] 9.8 mmol/L Normal [facility] Comment on above: Performed By: #### C CARA CMADM, BNP ####[facility] Cgemvlgwrq0039 [place] [address]Dr. Farhat Leal AST [Catalytic activity/Vol] 122 U/L Critically high 15-37 [facility] Comment on above: Performed By: #### C CARA CMADM, BNP ####[facility] Ybqmwibfle8573 [place] [address]Dr. Farhat Elvis Bilirubin [Mass/Vol] 0.7 mg/dL Normal 0.2-1.0 [facility] Comment on above: Performed By: #### C CARA CMADM, BNP ####[facility] Zkyyplbmzr4745 [place] [address]Dr. Farhat Elvis Calcium [Mass/Vol] 8.6 mg/dL Normal 8.5-10.1 [facility] Comment on above: Performed By: #### C MP CMADM, BNP ####[facility] Gtiijhatrj8271 [place] [address]Dr. Farhat Leal Chloride [Moles/Vol] 95 mmol/L Critically low 98-107 The [facility] Comment on above: Performed By: #### C CARA CMADM, BNP ####[facility] Zdzkghoehd7883 [place] [address]Dr. Farhat Leal CO2 [Moles/Vol] 29.6 mmol/L Normal 21.0-32.0 [facility] Comment on above: Performed By: #### C MP, CMADM, BNP ####[facility] Fztbqqrtuv1375 [place] [address]Dr. Farhat Leal Creatinine [Mass/Vol] 1.49 mg/dL Critically high 0.70-1.30 [facility] Comment on above: Performed By: #### C MP, CMADM, BNP ####[facility] Kjggohgokb[address] [place] [address]Dr. Farhat Leal EGFR-AF ICELANDIC 55 mL/min/1.73m2 Critically low >=60 [facility] Comment on above: Performed By: #### C MP, CMADM, BNP ####[facility] Afkclajvbl1715 [place] [address]Dr. Farhat Leal EGFR-NON AF ICELANDIC 46 mL/min/1.73m2 Critically low >=60 The [facility] Comment on above: Performed By: #### C MP, CMADM, BNP ####[facility] Anjhxsjjnv155[address] [place], [place] [address]Dr. Farhat Leal Globulin (S) [Mass/Vol] 4.3 g/dL Normal [facility] Comment on above: Performed By: #### C MP, CMADM, BNP ####[facility] Tchwrxcmge4803 [place] [address]Dr. Farhat Leal Glucose [Mass/Vol] 213 mg/dL Critically high 74-106 [facility] Comment on above: Performed By: #### C MP, CMADM, BNP ####[facility] Nacfeodgtk5[address] [place], [place] [address]Dr. Farhat Leal Potassium [Moles/Vol] 4.4 mmol/L Normal 3.5-5.1 [facility] Comment on above: Performed By: #### C MP, CMADM, BNP ####[facility] Afrmbizxbk6068 [place] [address]Dr. Farhat Leal Protein [Mass/Vol] 5.9 g/dL Critically low 6.4-8.[address] [facility] Comment on above: Performed By: #### C MP, CMADM, BNP ####[facility] Kjacvgbjye9818 [place] [address]Dr. Farhat Leal Sodium [Moles/Vol] 130 mmol/L Critically low 136-[address] [facility] Comment on above: Performed By: #### C MP, CMADM, BNP ####[facility] Arunbbafpd6[address] [place], [place] [address]Dr. Farhat Leal Urea nitrogen [Mass/Vol] 46.0 mg/dL Critically high 7.0-18.0 [facility] Comment on above: Performed By: #### C MP, CMADM, BNP ####[facility] Almwtxwuhq607[address] [place], [place] [address]Dr. Farhat Leal Urea nitrogen/Creatinine [Mass ratio] 30.9 mg/mg Normal [facility] Comment on above: Performed By: #### C MP, CMADM, BNP ####[facility] Wexiuifsfh9363[address] [place], [place] [address]Dr. Farhat Leal PROTIMEon 11-23-2021 INR Coag (PPP) [Relative time] 2.55 {INR} Normal [facility] Comment on above: Performed By: #### P TT, PT ####[facility] Byyzcuinsw7869[address] [place], [place] [address]Dr. Farhat Leal INR GUIDELINES SEE BELOW Normal The [facility] Comment on above: Result Comment: MALINA RED INR: 2.0 - 3.0 CONDITIONS NOT LISTED BELOW 2.5 - 3.5 FOR PROSTHETIC HEART VALVE REPLACEMENT 2.5 - 3.5 RECURRENT THROMBOSIS Performed By: #### P TT, PT ####[facility] Myjnzzxyrt0675[address] [place], [place] [address]Dr. Farhat Leal PT Coag (PPP) [Time] 25.9 s Critically high 9.0-11.6 [facility] Comment on above: Performed By: #### P TT, PT ####[facility] Quyunmzcqr5046[address] [place], [place] [address]Dr. Farhat Leal PTTon 11-23-2021 aPTT Coag (Bld) [Time] 39.9 s Critically high 22.3-36. 2 [facility] Comment on above: Performed By: #### P TT, PT ####[facility] Pcbedkfqhu8794[address] [place], [place] [address]Dr. Farhat Leal XR CHEST 1 Von 11-23-2021 XR CHEST 1 V Normal [facility] XR HEEL RT 2Von 11-23-2021 XR HEEL RT 2V Normal [facility] XR FOOT RT MIN 3 VIEWSon XR FOOT RT MIN 3 VIEWS Normal [facility] US ARTERY LEG RTon US ARTERY LEG RT Normal The [facility] CBC AUTO DIFFon 09-24-2021 BASO # 0.1 103/ul Normal 0.0-0.1 The [facility] Comment on above: Performed By: #### C BC ####[facility] Gwdewbilvm8589[address] [place], [place] [address]Dr. Frahat Leal Basophils/100 WBC (Bld) 0.7 % Normal 0.2-2.0 [facility] Comment on above: Performed By: #### C BC ####[facility] Nvswusssvx7523[address] [place], [place] [address]DrSkylar Leal EO # 0.3 103/ul Normal 0.0-0.7 [facility] Comment on above: Performed By: #### C BC ####[facility] Sjymnkaioj4346[address] [place], [place] [address]DrSkylar Leal Eosinophils/100 WBC (Bld) 3.9 % Normal 0.9-7.0 [facility] Comment on above: Performed By: #### C BC ####[facility] Azttcfpjmh967[address] [place], [place] [address]DrSkylar Leal Erythrocyte distribution width (RBC) [Ratio] 12.6 % Normal 11.0-15.0 [facility] Comment on above: Performed By: #### C BC ####[facility] Ezbzhqcrcb[address] [place], [place] [address]DrSkylar Leal Hematocrit (Bld) [Volume fraction] 38.9 % Critically low 42.0-54.0 [facility] Comment on above: Performed By: #### C BC ####[facility] Mdiibdoxej0412 [place] [address]DrSkylar Farhat Elvis Hemoglobin (Bld) [Mass/Vol] 12.8 g/dL Critically low 14.0-18.0 [facility] Comment on above: Performed By: #### C BC ####[facility] Lhrdqkgifk2626[address] [place], [place] [address]DrSkylar Leal IG # 0.10 10e3/ul Critically high 0.00-0.03 [facility] Comment on above: Performed By: #### C BC ####[facility] Jjhuzbuzmn6534[address] [place], [place] [address]DrSkylar Leal IG % 1.2 % Critically high 0.0-0.5 The [facility] Comment on above: Performed By: #### C BC ####[facility] Dcdhauxoch5612[address] [place], [place] [address]DrSkylar Leal LYMPH # 2.1 103/ul Normal 1.2-3.8 [facility] Comment on above: Performed By: #### C BC ####[facility] Koxynhwgsn1969[address] [place], [place] [address]DrSkylar Leal Lymphocytes/100 WBC (Bld) 25.9 % Normal 20.5-60.0 [facility] Comment on above: Performed By: #### C BC ####[facility] Zryrxdsfbp679[address] [place], [place] [address]DrSkylar Leal MANUAL DIFF REQ NO Normal The [facility] Comment on above: Performed By: #### C BC ####[facility] Bzdlivpuoh0626[address] [place], [place] [address]DrSkylar Leal MCH (RBC) [Entitic mass] 31.1 pg Normal 25.9-34.0 [facility] Comment on above: Performed By: #### C BC ####[facility] Syyccjqagr8016[address] [place], [place] [address]DrSkylar Leal MCHC (RBC) [Mass/Vol] 32.9 g/dL Normal 29.9-35.2 [facility] Comment on above: Performed By: #### C BC ####[facility] Dromhsxxgs0978 [place] [address]Dr. Farhat Leal MCV (RBC) [Entitic vol] 94.6 fL Critically high 80.0-94.0 [facility] Comment on above: Performed By: #### C BC ####[facility] Wlgxrwgsqo7963[address] [place], [place] [address]Dr. Farhat Lael MONO # 1.2 103/ul Critically high 0.3-0.8 The [facility] Comment on above: Performed By: #### C BC ####[facility] Rjyeaeiyjt9744[address] [place], [place] [address]Dr. Farhat Leal Monocytes/100 WBC (Bld) 14.1 % Critically high 1.7-12.0 [facility] Comment on above: Performed By: #### C BC ####[facility] Sjmckqqebh7796[address] [place], [place] [address]Dr. Farhat Leal NEUT # 4.4 103/ul Normal 1.4-6.5 [facility] Comment on above: Performed By: #### C BC ####[facility] Vnyiaugpcf981[address] [place], [place] [address]Dr. Farhat Leal Neutrophils/100 WBC (Bld) 54.2 % Normal 43.0-75.0 [facility] Comment on above: Performed By: #### C BC ####[facility] Rrpzgjojmm4819[address] [place], [place] [address]Dr. Farhat Leal Platelet mean volume (Bld) [Entitic vol] 9.9 fL Normal 9.5-13.5 [facility] Comment on above: Performed By: #### C BC ####[facility] Iiujjmfwhp9819[address] [place], [place] [address]Dr. Farhat Leal PLT 224 103/ul Normal 150-450 [facility] Comment on above: Performed By: #### C BC ####[facility] Gngkascjnh0656[address] [place], [place] [address]Dr. Farhat Leal RBC 4.11 106/ul Critically low 4.70-6.10 The [facility] Comment on above: Performed By: #### C BC ####[facility] Csnqbltflq3880 [place] [address]Dr. Farhat Elvis WBC 8.2 103/ul Normal 4.0-11.0 [facility] Comment on above: Performed By: #### C BC ####[facility] Ggoxnafqyx9[address] [place], [place] [address]Dr. Farhat Leal PROF CHEM 8 (BAS METB)on Anion gap [Moles/Vol] 9.6 mmol/L Normal [facility] Comment on above: Performed By: #### B MP ####[facility] Uajxawlhvc6954[address] [place], [place] [address]Dr. Farhat Leal Calcium [Mass/Vol] 8.6 mg/dL Normal 8.5-10.1 [facility] Comment on above: Performed By: #### B MP ####[facility] Rquncjfgid035[address] [place], [place] [address]Dr. Farhat Leal Chloride [Moles/Vol] 94 mmol/L Critically low 98-107 [facility] Comment on above: Performed By: #### B MP ####[facility] Xrkarmfkos101[address] [place], [place] [address]Dr. Farhat Leal CO2 [Moles/Vol] 28.1 mmol/L Normal 21.0-32.0 The [facility] Comment on above: Performed By: #### B MP ####[facility] Obgeikofzx1536[address] [place], [place] [address]Dr. Farhat Leal Creatinine [Mass/Vol] 1.91 mg/dL Critically high 0.70-1.30 [facility] Comment on above: Performed By: #### B MP ####[facility] Jjowqwusxf7794[address] [place], [place] [address]Dr. Farhat Leal EGFR-AF ICELANDIC 42 mL/min/1.73m2 Critically low >=60 [facility] Comment on above: Performed By: #### B MP ####[facility] Joaxvnxgyt7492 [place] [address]Dr. Madelynlorri Elvis EGFR-NON AF ICELANDIC 34 mL/min/1.73m2 Critically low >=60 [facility] Comment on above: Performed By: #### B MP ####[facility] Pjpunxbuiz036[address] [place], [place] [address]Dr. Farhat Leal Glucose [Mass/Vol] 314 mg/dL Critically high 74-106 [facility] Comment on above: Performed By: #### B MP ####[facility] Zleyluhqfz9678[address] [place], [place] [address]Dr. Farhat Leal Potassium [Moles/Vol] 4.7 mmol/L Normal 3.5-5.1 [facility] Comment on above: Performed By: #### B MP ####[facility] Wjziprffgr[address] [place], [place] [address]Dr. Farhat Leal Sodium [Moles/Vol] 127 mmol/L Critically low 136-[address] [facility] Comment on above: Performed By: #### B MP ####[facility] Qbnxsqvvjs5464[address] [place], [place] [address]Dr. Farhat Leal Urea nitrogen [Mass/Vol] 79.0 mg/dL Critically high 7.0-18.0 [facility] Comment on above: Result Comment: repe ated Performed By: #### B MP ####[facility] Bbphlcyovx4763[address] [place], [place] [address]Dr. Farhat Leal Urea nitrogen/Creatinine [Mass ratio] 41.4 mg/mg Normal [facility] Comment on above: Performed By: #### B MP ####[facility] Ldgpdmjkwa6205[address] [place], [place] [address]Dr. Farhat Leal PTT HEPARIN MONITORon 2021 aPTT Coag (Bld) [Time] 42.7 s Normal 39.5-54.2 [facility] Comment on above: Performed By: #### P TTHEP ####[facility] Prdykybiae265[address] [place], [place] [address]Dr. Farhat Leal aPTT Coag (Bld) [Time] 56.7 s Critically high 39.5-54. 2 [facility] Comment on above: Performed By: #### P TTHEP ####[facility] Wwaezxgcro7542[address] [place], [place] [address]Dr. Farhat Leal CBC AUTO DIFFon 09-23-2021 BASO # 0.1 103/ul Normal 0.0-0.1 [facility] Comment on above: Performed By: #### C BC ####[facility] Zioippbjiy1452[address] [place], [place] [address]Dr. Farhat Leal Basophils/100 WBC (Bld) 0.6 % Normal 0.2-2.0 [facility] Comment on above: Performed By: #### C BC ####[facility] Fmcqgsnzql9699[address] [place], [place] [address]Dr. Farhat Leal EO # 0.2 103/ul Normal 0.0-0.7 [facility] Comment on above: Performed By: #### C BC ####[facility] Fzmsziakoy7319[address] [place], [place] [address]Dr. Farhat Leal Eosinophils/100 WBC (Bld) 2.6 % Normal 0.9-7.0 [facility] Comment on above: Performed By: #### C BC ####[facility] Djtzfjeraa2929[address] [place], [place] [address]Dr. Farhat Leal Erythrocyte distribution width (RBC) [Ratio] 12.4 % Normal 11.0-15.0 [facility] Comment on above: Performed By: #### C BC ####[facility] Uyptwccimf0364[address] [place], [place] [address]Dr. Farhat Leal Hematocrit (Bld) [Volume fraction] 38.4 % Critically low 42.0-54.0 [facility] Comment on above: Performed By: #### C BC ####[facility] Wqvjrglqlx376[address] [place], [place] [address]Dr. Farhat Leal Hemoglobin (Bld) [Mass/Vol] 12.8 g/dL Critically low 14.0-18.0 [facility] Comment on above: Performed By: #### C BC ####[facility] Jwixvnnyww334[address] [place], [place] [address]DrSkylar Leal IG # 0.06 10e3/ul Critically high 0.00-0.03 [facility] Comment on above: Performed By: #### C BC ####[facility] Mzzeaysklh0265 [place] [address]DrSkylar Leal IG % 0.8 % Critically high 0.0-0.5 [facility] Comment on above: Performed By: #### C BC ####[facility] Ytlzezuswy4039 [place] [address]DrSkylar Leal LYMPH # 1.5 103/ul Normal 1.2-3.8 [facility] Comment on above: Performed By: #### C BC ####[facility] Wjdtqruwoj5905 [place] [address]DrSkylar Leal Lymphocytes/100 WBC (Bld) 19.7 % Critically low 20.5-60.0 [facility] Comment on above: Performed By: #### C BC ####[facility] Orffsknsqp5[address] [place], [place] [address]DrSkylar Leal MANUAL DIFF REQ NO Normal [facility] Comment on above: Performed By: #### C BC ####[facility] Fjyegviqxd0[address] [place], [place] [address]DrSkylar Leal MCH (RBC) [Entitic mass] 31.6 pg Normal 25.9-34.0 [facility] Comment on above: Performed By: #### C BC ####[facility] Huoscachgp2686 [place] [address]DrSkylar Leal MCHC (RBC) [Mass/Vol] 33.3 g/dL Normal 29.9-35.2 [facility] Comment on above: Performed By: #### C BC ####[facility] Duwuqnaiwk[address] [place], [place] [address]DrSkylar Leal MCV (RBC) [Entitic vol] 94.8 fL Critically high 80.0-94.0 [facility] Comment on above: Performed By: #### C BC ####[facility] Mhudvqdcpm[address] [place], [place] [address]Dr. Farhat Leal MONO # 1.0 103/ul Critically high 0.3-0.8 The [facility] Comment on above: Performed By: #### C BC ####[facility] Yrptscqiph7252 [place] [id number]. Farhat Leal Monocytes/100 WBC (Bld) 13.0 % Critically high 1.7-12.0 [facility] Comment on above: Performed By: #### C BC ####[facility] Qqaziwfspq6902 [place] [id number]. Farhat Leal NEUT # 4.9 103/ul Normal 1.4-6.5 [facility] Comment on above: Performed By: #### C BC ####[facility] Rxvfajeroc5640 [place] [phone] Farhat Leal Neutrophils/100 WBC (Bld) 63.3 % Normal 43.0-75.0 [facility] Comment on above: Performed By: #### C BC ####[facility] Fzgttecvxi80[address] [place], [place] [address]Dr. Farhat Leal Platelet mean volume (Bld) [Entitic vol] 10.7 fL Normal 9.5-13.5 [facility] Comment on above: Performed By: #### C BC ####[facility] Afbwscnbkl[address] [place], [place] [address]Dr. Farhat eLal PLT 205 103/ul Normal 150-450 [facility] Comment on above: Performed By: #### C BC ####[facility] Stjazxpvpn77[address] [place] [id number]. Farhat Leal RBC 4.05 106/ul Critically low 4.70-6.10 The [facility] Comment on above: Performed By: #### C BC ####[facility] Duxynmmefn2708 [place] [id number] Farhat Leal WBC 7.7 103/ul Normal 4.0-11.0 [facility] Comment on above: Performed By: #### C BC ####[facility] Aufghzyauv[address] [place], [place] [address]DrSkylar Leal PROF CHEM 8 (BAS METB)on Anion gap [Moles/Vol] 15.5 mmol/L Normal [facility] Comment on above: Performed By: #### B MP ####[facility] Grhyvfsfae68[address] [place], [place] [address]Dr. Madelynlorri Leal Calcium [Mass/Vol] 9.1 mg/dL Normal 8.5-10.1 [facility] Comment on above: Performed By: #### B MP ####[facility] Rvgarljuff4064[address] [place], [place] [address]Dr. Farhat Leal Chloride [Moles/Vol] 92 mmol/L Critically low 98-107 [facility] Comment on above: Performed By: #### B MP ####[facility] Lzldzvzivy348[address] [place], [place] [address]Dr. Farhat Leal CO2 [Moles/Vol] 28.5 mmol/L Normal 21.0-32.0 [facility] Comment on above: Performed By: #### B MP ####[facility] Javpiztuys4766[address] [place], [place] [address]Dr. Farhat Leal Creatinine [Mass/Vol] 1.84 mg/dL Critically high 0.70-1.30 [facility] Comment on above: Performed By: #### B MP ####[facility] Onsiatjrdb026[address] [place], [place] [address]Dr. Farhat Leal EGFR-AF ICELANDIC 44 mL/min/1.73m2 Critically low >=60 [facility] Comment on above: Performed By: #### B MP ####[facility] Qsrixyxayw7099[address] [place], [place] [address]Dr. Farhat Leal EGFR-NON AF ICELANDIC 36 mL/min/1.73m2 Critically low >=60 [facility] Comment on above: Performed By: #### B MP ####[facility] Fhpymmjvlo3087[address] [place], [place] [address]Dr. Farhat Leal Glucose [Mass/Vol] 267 mg/dL Critically high 74-106 [facility] Comment on above: Performed By: #### B MP ####[facility] Llkbkahqyy3248[address] [place], [place] [address]Dr. Farhat Leal Potassium [Moles/Vol] 5.0 mmol/L Normal 3.5-5.1 [facility] Comment on above: Performed By: #### B MP ####[facility] Xxdusaavpz045[address] [place], [place] [address]Dr. Farhat Leal Sodium [Moles/Vol] 131 mmol/L Critically low 136-[address] [facility] Comment on above: Performed By: #### B MP ####[facility] Ujywozfukh9[address] [place], [place] [address]Dr. Farhat Leal Urea nitrogen [Mass/Vol] 76.0 mg/dL Critically high 7.0-18.0 [facility] Comment on above: Performed By: #### B MP ####[facility] Sxruafpprq6412[address] [place], [place] [address]Dr. Farhat Leal Urea nitrogen/Creatinine [Mass ratio] 41.3 mg/mg Normal [facility] Comment on above: Performed By: #### B MP ####[facility] Juocqximfi9556[address] [place], [place] [address]Dr. Farhat Leal PTT HEPARIN MONITORon 2021 aPTT Coag (Bld) [Time] 57.2 s Critically high 39.5-54. 2 [facility] Comment on above: Performed By: #### P TTHEP ####[facility] Amthjbzdfv536[address] [place], [place] [address]Dr. Farhat Leal aPTT Coag (Bld) [Time] 74.7 s Critically high 39.5-54. 2 [facility] Comment on above: Result Comment: repe ated Performed By: #### P TTHEP ####[facility] Txcpqwrfoq9199[address] [place], [place] [address]Dr. Farhat Leal aPTT Coag (Bld) [Time] 45.5 s Normal 39.5-54.2 [facility] Comment on above: Performed By: #### P TTHEP ####[facility] Pcpcqfaxvi1787[address] [place], [place] [address]Dr. Farhat Leal CBC AUTO DIFFon 09-22-2021 BASO # 0.1 103/ul Normal 0.0-0.1 [facility] Comment on above: Performed By: #### C BC ####[facility] [address] [place] [address]Dr. Farhat Leal Basophils/100 WBC (Bld) 0.7 % Normal 0.2-2.0 [facility] Comment on above: Performed By: #### C BC ####[facility] Xehaulqfzk32[address] [place] [address]DrSkylar Leal EO # 0.3 103/ul Normal 0.0-0.7 [facility] Comment on above: Performed By: #### C BC ####[facility] Ukczuzhlri5175[address] [place], [place] [address]Dr. Farhat Leal Eosinophils/100 WBC (Bld) 3.2 % Normal 0.9-7.0 [facility] Comment on above: Performed By: #### C BC ####[facility] Dlqvahhmcc6694[address] [place], [place] [address]DrSkylar Leal Erythrocyte distribution width (RBC) [Ratio] 12.5 % Normal 11.0-15.0 [facility] Comment on above: Performed By: #### C BC ####[facility] Yibpszmnpi7138[address] [place], [place] [address]Dr. Farhat Leal Hematocrit (Bld) [Volume fraction] 40.5 % Critically low 42.0-54.0 [facility] Comment on above: Performed By: #### C BC ####[facility] Cnsajomhai8697[address] [place], [place] [address]Dr. Farhat Leal Hemoglobin (Bld) [Mass/Vol] 13.4 g/dL Critically low 14.0-18.0 [facility] Comment on above: Performed By: #### C BC ####[facility] Syulnrlroa5926[address] [place], [place] [address]DrSkylar Leal IG # 0.11 10e3/ul Critically high 0.00-0.03 [facility] Comment on above: Performed By: #### C BC ####[facility] Wlqilctrkq2478[address] [place], [place] [address]Dr. Farhat Leal IG % 1.3 % Critically high 0.0-0.5 The [facility] Comment on above: Performed By: #### C BC ####[facility] Rnafrpigvo8[address] [place] [address]DrSkylar Leal LYMPH # 1.7 103/ul Normal 1.2-3.8 [facility] Comment on above: Performed By: #### C BC ####[facility] Qswfpnquvs3738 [place] [address]DrSkylar Leal Lymphocytes/100 WBC (Bld) 19.6 % Critically low 20.5-60.0 [facility] Comment on above: Performed By: #### C BC ####[facility] Vyqhcltpxa7[address] [place], [place] [address]DrSkylar Leal MANUAL DIFF REQ NO Normal The [facility] Comment on above: Performed By: #### C BC ####[facility] Dwjskrqbvc022[address] [place] [address]DrSkylar Leal MCH (RBC) [Entitic mass] 31.1 pg Normal 25.9-34.0 [facility] Comment on above: Performed By: #### C BC ####[facility] Wjwcghgisz8944[address] [place], [place] [address]DrSkylar Leal MCHC (RBC) [Mass/Vol] 33.1 g/dL Normal 29.9-35.2 [facility] Comment on above: Performed By: #### C BC ####[facility] Emqhzczxmy29[address] [place] [address]DrSkylar Leal MCV (RBC) [Entitic vol] 94.0 fL Normal 80.0-94.0 [facility] Comment on above: Performed By: #### C BC ####[facility] Twcuopdiec3553[address] [place], [place] [address]DrSkylar Leal MONO # 1.1 103/ul Critically high 0.3-0.8 [facility] Comment on above: Performed By: #### C BC ####[facility] Xpyzbyyvex1817[address] [place], [place] [address]DrSkylar Leal Monocytes/100 WBC (Bld) 12.7 % Critically high 1.7-12.0 [facility] Comment on above: Performed By: #### C BC ####[facility] Fizeevhlcz5[address] [place] [address]DrSkylar Farhat Leal NEUT # 5.3 103/ul Normal 1.4-6.5 [facility] Comment on above: Performed By: #### C BC ####[facility] Qusjdkwqot5902 [place] [address]DrSkylar Farhat Leal Neutrophils/100 WBC (Bld) 62.5 % Normal 43.0-75.0 [facility] Comment on above: Performed By: #### C BC ####[facility] Ownoypghmf618[address] [place], [place] [address]DrSkylar Farhat Elvis Platelet mean volume (Bld) [Entitic vol] 10.1 fL Normal 9.5-13.5 [facility] Comment on above: Performed By: #### C BC ####[facility] Umsidpkoov5035[address] [place], [place] [address]DrSkylar Farhat Leal PLT 220 103/ul Normal 150-450 [facility] Comment on above: Performed By: #### C BC ####[facility] Iazlyfojgi447[address] [place], [place] [address]DrSkylar Farhat Leal RBC 4.31 106/ul Critically low 4.70-6.10 [facility] Comment on above: Performed By: #### C BC ####[facility] Gdimdhrzdm264[address] [place], [place] [address]DrSkylar Farhat Elvis WBC 8.4 103/ul Normal 4.0-11.0 [facility] Comment on above: Performed By: #### C BC ####[facility] Aorbzykqdt[address] [place], [place] [address]DrSkylar Madelynlorri Leal PROF CHEM 8 (BAS METB)on Anion gap [Moles/Vol] 15.5 mmol/L Normal [facility] Comment on above: Performed By: #### B MP ####[facility] Hztfnzvspu777[address] [place], [place] [address]Dr. Farhat Leal Calcium [Mass/Vol] 8.9 mg/dL Normal 8.5-10.1 [facility] Comment on above: Performed By: #### B MP ####[facility] Llzwdyzxhy65[address] [place] [address]Dr. Farhat Leal Chloride [Moles/Vol] 92 mmol/L Critically low 98-107 [facility] Comment on above: Performed By: #### B MP ####[facility] Axorpzvfkd5765[address] [place], [place] [address]Dr. Farhat Leal CO2 [Moles/Vol] 25.7 mmol/L Normal 21.0-32.0 [facility] Comment on above: Performed By: #### B MP ####[facility] Yvvqbwqvbo8614[address] [place], [place] [address]Dr. Farhat Leal Creatinine [Mass/Vol] 1.85 mg/dL Critically high 0.70-1.30 [facility] Comment on above: Performed By: #### B MP ####[facility] Ccylhcfstx7674[address] [place], [place] [address]Dr. Farhat Leal EGFR-AF ICELANDIC 43 mL/min/1.73m2 Critically low >=60 [facility] Comment on above: Performed By: #### B MP ####[facility] Vujvakawdo5408[address] [place], [place] [address]Dr. Farhat Leal EGFR-NON AF ICELANDIC 36 mL/min/1.73m2 Critically low >=60 [facility] Comment on above: Performed By: #### B MP ####[facility] Gr[address]igaiul[address] [place] [address]Dr. Farhat Leal Glucose [Mass/Vol] 410 mg/dL Critically high 74-106 [facility] Comment on above: Performed By: #### B MP ####[facility] Xfgvcmulzu933[address] [place], [place] [address]Dr. Farhta Leal Potassium [Moles/Vol] 5.2 mmol/L Critically high 3.5-5.1 [facility] Comment on above: Performed By: #### B MP ####[facility] Xzhjrblcmk2003[address] [place], [place] [address]Dr. Farhat Leal Sodium [Moles/Vol] 128 mmol/L Critically low 136-[address] [facility] Comment on above: Performed By: #### B MP ####[facility] Dnoexlasqn5395[address] [place], [place] [address]Dr. Farhat Leal Urea nitrogen [Mass/Vol] 75.0 mg/dL Critically high 7.0-18.0 [facility] Comment on above: Performed By: #### B MP ####[facility] Clegdmgoxb0194[address] [place], [place] [address]Dr. Farhat Leal Urea nitrogen/Creatinine [Mass ratio] 40.5 mg/mg Normal [facility] Comment on above: Performed By: #### B MP ####[facility] Jwtxhfintc4238[address] [place], [place] [address]Dr. Farhat Leal PTT HEPARIN MONITORon 2021 aPTT Coag (Bld) [Time] 51.2 s Normal 39.5-54.2 [facility] Comment on above: Performed By: #### P TTHEP ####[facility] Uvileskyax918[address] [place], [place] [address]Dr. Farhat Leal aPTT Coag (Bld) [Time] 55.6 s Critically high 39.5-54. 2 [facility] Comment on above: Performed By: #### P TTHEP ####[facility] Soouoxwxag5956[address] [place], [place] [address]Dr. Farhat Leal aPTT Coag (Bld) [Time] 46.1 s Normal 39.5-54.2 [facility] Comment on above: Performed By: #### P TTHEP ####[facility] Uknodypviz2682[address] [place], [place] [address]Dr. Farhat Leal aPTT Coag (Bld) [Time] 53.8 s Normal 39.5-54.2 [facility] Comment on above: Performed By: #### P TTHEP ####[facility] Dgnncbmwuk188[address] [place], [place] [address]Dr. Farhat Leal CBC AUTO DIFFon 09-21-2021 BASO # 0.1 103/ul Normal 0.0-0.1 [facility] Comment on above: Performed By: #### C BC ####[facility] [address]uz[address]uer[address] [place] [address]Dr. Farhat Leal Basophils/100 WBC (Bld) 0.8 % Normal 0.2-2.0 [facility] Comment on above: Performed By: #### C BC ####[facility] Ajvyekrovd7225[address] [place], [place] [address]Dr. Farhat Leal EO # 0.4 103/ul Normal 0.0-0.7 [facility] Comment on above: Performed By: #### C BC ####[facility] Csnuqlfgfw4124[address] [place], [place] [address]Dr. Farhat Leal Eosinophils/100 WBC (Bld) 4.3 % Normal 0.9-7.0 [facility] Comment on above: Performed By: #### C BC ####[facility] Ipfxgkjyao1374[address] [place], [place] [address]Dr. Farhat Leal Erythrocyte distribution width (RBC) [Ratio] 12.5 % Normal 11.0-15.0 [facility] Comment on above: Performed By: #### C BC ####[facility] Wjueumvskm3107[address] [place], [place] [address]Dr. Farhat Leal Hematocrit (Bld) [Volume fraction] 40.8 % Critically low 42.0-54.0 [facility] Comment on above: Performed By: #### C BC ####[facility] Infsjjpglb5754[address] [place], [place] [address]Dr. Farhat Leal Hemoglobin (Bld) [Mass/Vol] 13.5 g/dL Critically low 14.0-18.0 [facility] Comment on above: Performed By: #### C BC ####[facility] Iflznhcalq354[address] [place], [place] [address]Dr. Madelynlorri Elvis IG # 0.10 10e3/ul Critically high 0.00-0.03 [facility] Comment on above: Performed By: #### C BC ####[facility] Ophkkisuct068[address] [place], [place] [address]Dr. Farhat Leal IG % 1.2 % Critically high 0.0-0.5 The [facility] Comment on above: Performed By: #### C BC ####[facility] Uqtrjgvydt42[address] [place] [address]Dr. Farhat Leal LYMPH # 1.3 103/ul Normal 1.2-3.8 [facility] Comment on above: Performed By: #### C BC ####[facility] Tufjqltfpe7[address] [place] [address]Dr. Madelynlorri Leal Lymphocytes/100 WBC (Bld) 15.4 % Critically low 20.5-60.0 [facility] Comment on above: Performed By: #### C BC ####[facility] Fffnfkavhy29[address] [place] [address]Dr. Farhat Leal MANUAL DIFF REQ NO Normal [facility] Comment on above: Performed By: #### C BC ####[facility] Wqrcainlab364[address] [place] [address]Dr. Farhat Elvis MCH (RBC) [Entitic mass] 31.0 pg Normal 25.9-34.0 [facility] Comment on above: Performed By: #### C BC ####[facility] Vgfadawfnv38[address] [place] [address]Dr. Farhat Elvis MCHC (RBC) [Mass/Vol] 33.1 g/dL Normal 29.9-35.2 [facility] Comment on above: Performed By: #### C BC ####[facility] Pgkgkottfm5439 [place] [address]DrSkylar Leal MCV (RBC) [Entitic vol] 93.8 fL Normal 80.0-94.0 [facility] Comment on above: Performed By: #### C BC ####[facility] Hboaoiwelg5822 [place] [address]DrSkylar Leal MONO # 1.2 103/ul Critically high 0.3-0.8 [facility] Comment on above: Performed By: #### C BC ####[facility] Zvifkhhzxr5870 [place] [address]Dr. Farhat Leal Monocytes/100 WBC (Bld) 13.6 % Critically high 1.7-12.0 [facility] Comment on above: Performed By: #### C BC ####[facility] Fuzuwovqnl15[address] [place] [address]Dr. Farhat Leal NEUT # 5.5 103/ul Normal 1.4-6.5 [facility] Comment on above: Performed By: #### C BC ####[facility] Zxhdowsxhw8375 [place] [address]Dr. Farhat Leal Neutrophils/100 WBC (Bld) 64.7 % Normal 43.0-75.0 [facility] Comment on above: Performed By: #### C BC ####[facility] Pnmpauousk3922 [place] [address]Dr. Farhat Leal Platelet mean volume (Bld) [Entitic vol] 9.8 fL Normal 9.5-13.5 [facility] Comment on above: Performed By: #### C BC ####[facility] Aekpvymmpn04[address] [place] [address]Dr. Farhat Leal PLT 206 103/ul Normal 150-450 [facility] Comment on above: Performed By: #### C BC ####[facility] Frnamsekia817[address] [place], [place] [address]Dr. Farhat Leal RBC 4.35 106/ul Critically low 4.70-6.10 [facility] Comment on above: Performed By: #### C BC ####[facility] Imfhhhbdge1260 [place] [address]Dr. Farhat Leal WBC 8.4 103/ul Normal 4.0-11.0 [facility] Comment on above: Performed By: #### C BC ####[facility] Jwmxujigta1322 [place] [address]Dr. Farhat Elvis PROF CHEM 8 (BAS METB)on Anion gap [Moles/Vol] 12.3 mmol/L Normal [facility] Comment on above: Performed By: #### B MP ####[facility] Cshaltfrtc[address] [place], [place] [address]Dr. Farhat Leal Calcium [Mass/Vol] 8.6 mg/dL Normal 8.5-10.1 [facility] Comment on above: Performed By: #### B MP ####[facility] Sahwisodqg[address] [place] [address]Dr. Farhat Leal Chloride [Moles/Vol] 94 mmol/L Critically low 98-107 [facility] Comment on above: Performed By: #### B MP ####[facility] Nsicxonjdu4517[address] [place], [place] [address]Dr. Farhat Leal CO2 [Moles/Vol] 30.8 mmol/L Normal 21.0-32.0 [facility] Comment on above: Performed By: #### B MP ####[facility] Nbkvqmlzsj727[address] [place], [place] [address]Dr. Farhat Leal Creatinine [Mass/Vol] 1.99 mg/dL Critically high 0.70-1.30 [facility] Comment on above: Performed By: #### B MP ####[facility] Orjnywldpj25[address] [place], [place] [address]Dr. Farhat Leal EGFR-AF ICELANDIC 40 mL/min/1.73m2 Critically low >=60 [facility] Comment on above: Performed By: #### B MP ####[facility] Ingxiolfjo0416[address] [place], [place] [address]Dr. Farhat Leal EGFR-NON AF ICELANDIC 33 mL/min/1.73m2 Critically low >=60 [facility] Comment on above: Performed By: #### B MP ####[facility] Nrmhtgxsfu777[address] [place], [place] [address]Dr. Farhat Leal Glucose [Mass/Vol] 264 mg/dL Critically high 74-106 [facility] Comment on above: Performed By: #### B MP ####[facility] Htubkoehyt911[address] [place], [place] [address]Dr. Farhat Leal Potassium [Moles/Vol] 5.1 mmol/L Normal 3.5-5.1 [facility] Comment on above: Performed By: #### B MP ####[facility] Vxkraiihsw6892[address] [place], [place] [address]Dr. Farhat Leal Sodium [Moles/Vol] 132 mmol/L Critically low 136-[address] [facility] Comment on above: Performed By: #### B MP ####[facility] Ebiuuxcykq9947[address] [place], [place] [address]Dr. Farhat Leal Urea nitrogen [Mass/Vol] 72.0 mg/dL Critically high 7.0-18.0 [facility] Comment on above: Performed By: #### B MP ####[facility] Ugeiqopoqb9202[address] [place], [place] [address]Dr. Farhat Leal Urea nitrogen/Creatinine [Mass ratio] 36.2 mg/mg Normal [facility] Comment on above: Performed By: #### B MP ####[facility] Fbbjahpmod8486[address] [place], [place] [address]Dr. Farhat Leal PTT HEPARIN MONITORon 2021 aPTT Coag (Bld) [Time] 45.3 s Normal 39.5-54.2 [facility] Comment on above: Performed By: #### P TTHEP ####[facility] Gbcvkyxosr2037[address] [place], [place] [address]Dr. Madelynlorri Elvis aPTT Coag (Bld) [Time] 68.0 s Critically high 39.5-54. 2 [facility] Comment on above: Performed By: #### P TTHEP ####[facility] Kxufoormxe0976[address] [place], [place] [address]Dr. Farhat Leal aPTT Coag (Bld) [Time] 69.4 s Critically high 39.5-54. 2 [facility] Comment on above: Performed By: #### P TTHEP ####[facility] Egxepolwhn2101[address] [place], [place] [address]Dr. Farhat Leal aPTT Coag (Bld) [Time] 53.5 s Normal 39.5-54.2 [facility] Comment on above: Performed By: #### P TTHEP ####[facility] Oatxlkfttd2016[address] [place], [place] [address]Dr. Farhat Leal aPTT Coag (Bld) [Time] 126.9 s Critically high 39.5-54. 2 [facility] Comment on above: Performed By: #### P TTHEP ####[facility] Teyclouwht106[address] [place], [place] [address]Dr. Farhat Leal CBC AUTO DIFFon 09-20-2021 BASO # 0.1 103/ul Normal 0.0-0.1 [facility] Comment on above: Performed By: #### C BC ####[facility] Jtcagybbud7289[address] [place], [place] [address]Dr. Farhat Leal Basophils/100 WBC (Bld) 0.7 % Normal 0.2-2.0 [facility] Comment on above: Performed By: #### C BC ####[facility] Rxpurwndrm7377[address] [place], [place] [address]Dr. Farhat Leal EO # 0.2 103/ul Normal 0.0-0.7 [facility] Comment on above: Performed By: #### C BC ####[facility] Xmragnynge5945[address] [place], [place] [address]Dr. Farhat Leal Eosinophils/100 WBC (Bld) 3.2 % Normal 0.9-7.0 [facility] Comment on above: Performed By: #### C BC ####[facility] Wctthwjesh4637[address] [place], [place] [address]Dr. Farhat Leal Erythrocyte distribution width (RBC) [Ratio] 12.4 % Normal 11.0-15.0 [facility] Comment on above: Performed By: #### C BC ####[facility] Ektgxzlbzk769[address] [place], [place] [address]Dr. Farhat Leal Hematocrit (Bld) [Volume fraction] 40.1 % Critically low 42.0-54.0 [facility] Comment on above: Performed By: #### C BC ####[facility] Cuqcrkgcdk1575[address] [place], [place] [address]Dr. Farhat Leal Hemoglobin (Bld) [Mass/Vol] 13.4 g/dL Critically low 14.0-18.0 [facility] Comment on above: Performed By: #### C BC ####[facility] [address]shnxqxdrp7[address] [place] [id number]. Farhat Leal IG # 0.08 10e3/ul Critically high 0.00-0.03 [facility] Comment on above: Performed By: #### C BC ####[facility] Evuftrugsx6497 [place] [address]Dr. Farhat Elvis IG % 1.1 % Critically high 0.0-0.5 The [facility] Comment on above: Performed By: #### C BC ####[facility] Yswpytcadv5[address] [place] [address]Dr. Madelynlorri Elvis LYMPH # 1.3 103/ul Normal 1.2-3.8 [facility] Comment on above: Performed By: #### C BC ####[facility] Iwklybnnuz9097 [place] [address]Dr. Farhat Leal Lymphocytes/100 WBC (Bld) 17.3 % Critically low 20.5-60.0 [facility] Comment on above: Performed By: #### C BC ####[facility] Nagqshloel[address] [place] [address]Dr. Madelynlorri Leal MANUAL DIFF REQ NO Normal The [facility] Comment on above: Performed By: #### C BC ####[facility] Jpdmzyawvt7095 [place] [address]Dr. Farhat Elvis MCH (RBC) [Entitic mass] 31.2 pg Normal 25.9-34.0 [facility] Comment on above: Performed By: #### C BC ####[facility] Mswznqygww4719 [place] [address]Dr. Farhat Elvis MCHC (RBC) [Mass/Vol] 33.4 g/dL Normal 29.9-35.2 [facility] Comment on above: Performed By: #### C BC ####[facility] Epqnrhszor[address] [place] [address]Dr. Farhat Elvis MCV (RBC) [Entitic vol] 93.3 fL Normal 80.0-94.0 [facility] Comment on above: Performed By: #### C BC ####[facility] Kaltviyrpq38[address] [place] [id number]. Farhat Leal MONO # 0.9 103/ul Critically high 0.3-0.8 The [facility] Comment on above: Performed By: #### C BC ####[facility] Omjzfvdldv7993 [place] [id number]. Farhat Leal Monocytes/100 WBC (Bld) 12.4 % Critically high 1.7-12.0 [facility] Comment on above: Performed By: #### C BC ####[facility] Siyrmrcuiq[address] [place] [id number]. Farhat Leal NEUT # 4.7 103/ul Normal 1.4-6.5 [facility] Comment on above: Performed By: #### C BC ####[facility] Tvwstqxdxw6455 [place] [id number]. Farhat Leal Neutrophils/100 WBC (Bld) 65.3 % Normal 43.0-75.0 [facility] Comment on above: Performed By: #### C BC ####[facility] Tgtfoypaov3255 [place] [id number]. Farhat Leal Platelet mean volume (Bld) [Entitic vol] 9.9 fL Normal 9.5-13.5 [facility] Comment on above: Performed By: #### C BC ####[facility] Fpsoglrscl4418 [place] [id number]. Farhat Leal PLT 180 103/ul Normal 150-450 [facility] Comment on above: Performed By: #### C BC ####[facility] Aozcvgmcht0716 [place] [id number]. Farhat Leal RBC 4.30 106/ul Critically low 4.70-6.10 The [facility] Comment on above: Performed By: #### C BC ####[facility] Ruiyibolmr5137 [place] [id number]. Farhat Leal WBC 7.2 103/ul Normal 4.0-11.0 The [facility] Comment on above: Performed By: #### C BC ####[facility] Wfaarqmpsu0297 [place] [id number]. Farhat Leal PTT HEPARIN MONITORon 2021 aPTT Coag (Bld) [Time] 26.7 s Critically low 39.5-54.2 The [facility] Comment on above: Performed By: #### P TTHEP ####[facility] Ppfcpxgruc[address] [place], [place] [address]Dr. Farhat Leal aPTT Coag (Bld) [Time] 121.0 s Critically high 39.5-54. 2 The [facility] Comment on above: Performed By: #### P TTHEP ####[facility] Kkhihkqtcm15[address] [place], [place] [address]Dr. Farhat Leal aPTT Coag (Bld) [Time] 27.6 s Critically low 39.5-54.2 The [facility] Comment on above: Performed By: #### P TTHEP ####[facility] Drlbctwlqj55[address] [place], [place] [address]Dr. Farhat Leal aPTT Coag (Bld) [Time] 139.0 s Critically high 39.5-54. 2 The [facility] Comment on above: Performed By: #### P TTHEP ####[facility] Fvfjoliqwe5532[address] [place], [place] [address]Dr. Farhat Leal CBC AUTO DIFFon 09-19-2021 BASO # 0.0 103/ul Normal 0.0-0.1 The [facility] Comment on above: Performed By: #### C BC ####[facility] Ebqvmaljid[address] [place], [place] [address]Dr. Farhat Leal Basophils/100 WBC (Bld) 0.5 % Normal 0.2-2.0 The [facility] Comment on above: Performed By: #### C BC ####[facility] Ozgkzicluv68[address] [place], [place] [address]Dr. Farhat Leal EO # 0.2 103/ul Normal 0.0-0.7 The [facility] Comment on above: Performed By: #### C BC ####[facility] Pbnxkjsfdu13[address] [place], [place] [address]DrSkylar Leal Eosinophils/100 WBC (Bld) 2.6 % Normal 0.9-7.0 [facility] Comment on above: Performed By: #### C BC ####[facility] Japwjlxeyh8667[address] [place], [place] [address]Dr. Farhat Leal Erythrocyte distribution width (RBC) [Ratio] 12.5 % Normal 11.0-15.0 [facility] Comment on above: Performed By: #### C BC ####[facility] Xgjxenxlgp4259[address] [place], [place] [address]Dr. Farhat Elvis Hematocrit (Bld) [Volume fraction] 39.2 % Critically low 42.0-54.0 The [facility] Comment on above: Performed By: #### C BC ####[facility] Zhfimxoyrq9389[address] [place], [place] [address]Dr. Madelynlorri Elvis Hemoglobin (Bld) [Mass/Vol] 13.3 g/dL Critically low 14.0-18.0 [facility] Comment on above: Performed By: #### C BC ####[facility] Ibsxiaenit0784[address] [place], [place] [address]Dr. Madelynlorri Elvis IG # 0.08 10e3/ul Critically high 0.00-0.03 [facility] Comment on above: Performed By: #### C BC ####[facility] Hnbcoswhxz5335[address] [place], [place] [address]Dr. Farhat Leal IG % 0.9 % Critically high 0.0-0.5 The [facility] Comment on above: Performed By: #### C BC ####[facility] Byeukykxag154[address] [place], [place] [address]DrSkylar Leal LYMPH # 1.5 103/ul Normal 1.2-3.8 The [facility] Comment on above: Performed By: #### C BC ####[facility] Cossylusjz695[address] [place], [place] [address]Dr. Farhat Leal Lymphocytes/100 WBC (Bld) 17.2 % Critically low 20.5-60.0 The [facility] Comment on above: Performed By: #### C BC ####[facility] Qubmjsotrg203[address] [place], [place] [address]Dr. Farhat Leal MANUAL DIFF REQ NO Normal The [facility] Comment on above: Performed By: #### C BC ####[facility] Cykadhgnyg9564 [place] [address]DrSkylar Farhat Elvis MCH (RBC) [Entitic mass] 31.7 pg Normal 25.9-34.0 [facility] Comment on above: Performed By: #### C BC ####[facility] Nrjvasaimm2476[address] [place], [place] [address]Dr. Farhat Elvis MCHC (RBC) [Mass/Vol] 33.9 g/dL Normal 29.9-35.2 The [facility] Comment on above: Performed By: #### C BC ####[facility] Qjyuoxbltl59[address] [place], [place] [address]DrSkylar Madelynlorri Leal MCV (RBC) [Entitic vol] 93.3 fL Normal 80.0-94.0 [facility] Comment on above: Performed By: #### C BC ####[facility] Assjazkocb2772[address] [place], [place] [address]DrSkylar Leal MONO # 1.2 103/ul Critically high 0.3-0.8 The [facility] Comment on above: Performed By: #### C BC ####[facility] Wnqjtsdcbq9255[address] [place], [place] [address]Dr. Farhat Leal Monocytes/100 WBC (Bld) 13.7 % Critically high 1.7-12.0 The [facility] Comment on above: Performed By: #### C BC ####[facility] Wltqzycjmd400[address] [place], [place] [address]DrSkylar Leal NEUT # 5.5 103/ul Normal 1.4-6.5 [facility] Comment on above: Performed By: #### C BC ####[facility] Urwphcmutc8[address] [place], [place] [address]DrkSylar Leal Neutrophils/100 WBC (Bld) 65.1 % Normal 43.0-75.0 [facility] Comment on above: Performed By: #### C BC ####[facility] Hugvxyzeet4057[address] [place], [place] [address]DrSkylar Leal Platelet mean volume (Bld) [Entitic vol] 9.6 fL Normal 9.5-13.5 The [facility] Comment on above: Performed By: #### C BC ####[facility] Zdfighlxec3788 [place] [address]Dr. Farhat Leal PLT 163 103/ul Normal 150-450 [facility] Comment on above: Performed By: #### C BC ####[facility] Lhytfcoymj4002 [place] [address]Dr. Farhat Leal RBC 4.20 106/ul Critically low 4.70-6.10 [facility] Comment on above: Performed By: #### C BC ####[facility] Kzcalmxuwh6782 [place] [address]Dr. Farhat Leal WBC 8.4 103/ul Normal 4.0-11.0 The [facility] Comment on above: Performed By: #### C BC ####[facility] Dbrtqnqqni8058[address] [place], [place] [address]Dr. Farhat Leal POINT OF CARE GLUCOSEon Glucose [Mass/Vol] 300 mg/dL Critically high 74-106 [facility] Comment on above: Performed By: #### P OCGLUC ####[facility] Waptakkemr1726[address] [place], [place] [address]Dr. Farhat Leal POTASSIUMon 09-19-2021 Potassium [Moles/Vol] 4.9 mmol/L Normal 3.5-5.1 The [facility] Comment on above: Performed By: #### K ####[facility] Dokwiybvgk7386[address] [place], [place] [address]Dr. Farhat Leal PTT HEPARIN MONITORon 2021 aPTT Coag (Bld) [Time] 23.4 s Critically low 39.5-54.2 The [facility] Comment on above: Result Comment: repe ated Performed By: #### P TTHEP ####[facility] Abjkzgkznp964[address] [place], [place] [address]Dr. Farhat Elvis aPTT Coag (Bld) [Time] 101.2 s Critically high 39.5-54. 2 The [facility] Comment on above: Performed By: #### P TTHEP ####[facility] Uqinavzwzy50[address] [place], [place] [address]Dr. Farhat Elvis aPTT Coag (Bld) [Time] 81.0 s Critically high 39.5-54. 2 The [facility] Comment on above: Result Comment: Test Repeated. Critical Value Verified Performed By: #### P TTHEP ####[facility] Fvyxmnyzip3542[address] [place], [place] [address]Dr. Farhat Elvis CBC AUTO DIFFon 09-18-2021 BASO # 0.0 103/ul Normal 0.0-0.1 The [facility] Comment on above: Performed By: #### C BC ####[facility] Qsnhxecifs8534[address] [place], [place] [address]Dr. Farhat Leal Basophils/100 WBC (Bld) 0.4 % Normal 0.2-2.0 The [facility] Comment on above: Performed By: #### C BC ####[facility] Hokozcrfxn9[address] [place], [place] [address]Dr. Farhat Leal EO # 0.1 103/ul Normal 0.0-0.7 The [facility] Comment on above: Performed By: #### C BC ####[facility] Kpzfgbzmdf7[address] [place], [place] [address]Dr. Farhat Leal Eosinophils/100 WBC (Bld) 0.8 % Critically low 0.9-7.0 The [facility] Comment on above: Performed By: #### C BC ####[facility] Saxwfkghea7777[address] [place], [place] [address]Dr. Farhat Leal Erythrocyte distribution width (RBC) [Ratio] 12.4 % Normal 11.0-15.0 The [facility] Comment on above: Performed By: #### C BC ####[facility] Qooesbeaxx657[address] [place], [place] [address]Dr. Farhat Leal Hematocrit (Bld) [Volume fraction] 41.7 % Critically low 42.0-54.0 The [facility] Comment on above: Performed By: #### C BC ####[facility] Jqlvrxksmr9205 [place] [phone]. Farhat Leal Hemoglobin (Bld) [Mass/Vol] 14.1 g/dL Normal 14.0-18.0 The [facility] Comment on above: Performed By: #### C BC ####[facility] Penbkcsyrd9031 [place] [phone]. Farhat Leal IG # 0.06 10e3/ul Critically high 0.00-0.03 The [facility] Comment on above: Performed By: #### C BC ####[facility] Byzqvwgqgg2648 [place] [phone]. Farhat Leal IG % 0.6 % Critically high 0.0-0.5 The [facility] Comment on above: Performed By: #### C BC ####[facility] Pxxyvmsllb4432 [place] [address]Dr. Farhat Leal LYMPH # 0.6 103/ul Critically low 1.2-3.8 The [facility] Comment on above: Performed By: #### C BC ####[facility] Nqilifbxsx5455 [place] [address]Dr. Farhat Leal Lymphocytes/100 WBC (Bld) 6.5 % Critically low 20.5-60.0 The [facility] Comment on above: Performed By: #### C BC ####[facility] Rhdosbinow3448 [place] [address]Dr. Farhat Leal MANUAL DIFF REQ NO Normal The [facility] Comment on above: Performed By: #### C BC ####[facility] Cmsscojfir7986 [place] [address]Dr. Farhat Leal MCH (RBC) [Entitic mass] 31.6 pg Normal 25.9-34.0 [facility] Comment on above: Performed By: #### C BC ####[facility] Wlwixncfsr90[address] [place], [place] [address]Dr. Farhat Leal MCHC (RBC) [Mass/Vol] 33.8 g/dL Normal 29.9-35.2 The [facility] Comment on above: Performed By: #### C BC ####[facility] Flrpmnadch2948 [place] [phone]. Farhat Leal MCV (RBC) [Entitic vol] 93.5 fL Normal 80.0-94.0 [facility] Comment on above: Performed By: #### C BC ####[facility] Gsvsjijyzn6772 [place] [phone]. Farhat Leal MONO # 1.0 103/ul Critically high 0.3-0.8 The [facility] Comment on above: Performed By: #### C BC ####[facility] Iegnxbqrzv7294 [place] [phone]. Farhat Leal Monocytes/100 WBC (Bld) 10.4 % Normal 1.7-12.0 The [facility] Comment on above: Performed By: #### C BC ####[facility] Arirhasgga8698 [place] [phone]. Farhat Leal NEUT # 7.8 103/ul Critically high 1.4-6.5 The [facility] Comment on above: Performed By: #### C BC ####[facility] Wccpyrpoxa8974 [place] [phone]. Farhat Leal Neutrophils/100 WBC (Bld) 81.3 % Critically high 43.0-75.0 The [facility] Comment on above: Performed By: #### C BC ####[facility] Cfobekwojb8892 [place] [phone]. Farhat Leal Platelet mean volume (Bld) [Entitic vol] 9.9 fL Normal 9.5-13.5 The [facility] Comment on above: Performed By: #### C BC ####[facility] Gexqdyssni5146 [place] [phone]. Farhat Leal PLT 169 103/ul Normal 150-450 The [facility] Comment on above: Performed By: #### C BC ####[facility] Uzznvmbqau8007 [place] [phone]. Farhat Leal RBC 4.46 106/ul Critically low 4.70-6.10 The [facility] Comment on above: Performed By: #### C BC ####[facility] Lxoskrucpz9176 [place] [phone]. Farhat Leal WBC 9.6 103/ul Normal 4.0-11.0 The [facility] Comment on above: Performed By: #### C BC ####[facility] Kmrjajpplv1557 [place] [phone]. Farhat Leal BASO # 0.0 103/ul Normal 0.0-0.1 The [facility] Comment on above: Performed By: #### C BC ####[facility] Comgezmqjm9357 [place] [phone]. Farhat Leal Basophils/100 WBC (Bld) 0.4 % Normal 0.2-2.0 The [facility] Comment on above: Performed By: #### C BC ####[facility] Awupeuwmal7470 [place] [phone]. Farhat Leal EO # 0.1 103/ul Normal 0.0-0.7 The [facility] Comment on above: Performed By: #### C BC ####[facility] Sjgditjpua9603 [place] [phone]. Farhat Leal Eosinophils/100 WBC (Bld) 1.1 % Normal 0.9-7.0 The [facility] Comment on above: Performed By: #### C BC ####[facility] Nkbkdgwqdf[address] [place], [place] [address]Dr. Farhat Leal Erythrocyte distribution width (RBC) [Ratio] 12.6 % Normal 11.0-15.0 The [facility] Comment on above: Performed By: #### C BC ####[facility] Hwyelushlp0796 [place] [phone]. Farhat Leal Hematocrit (Bld) [Volume fraction] 40.8 % Critically low 42.0-54.0 The [facility] Comment on above: Performed By: #### C BC ####[facility] Sgstsppepx8189 [place] [phone]. Farhat Leal Hemoglobin (Bld) [Mass/Vol] 13.6 g/dL Critically low 14.0-18.0 The [facility] Comment on above: Performed By: #### C BC ####[facility] Hqoselfaos3198 [place] [phone]. Farhat Leal IG # 0.08 10e3/ul Critically high 0.00-0.03 [facility] Comment on above: Performed By: #### C BC ####[facility] Xcyrrepmjd1944 [place] [phone]. Farhat Leal IG % 0.9 % Critically high 0.0-0.5 The [facility] Comment on above: Performed By: #### C BC ####[facility] Vjfvkwvbis1117 [place] [phone]. Farhat Elvis LYMPH # 0.8 103/ul Critically low 1.2-3.8 [facility] Comment on above: Performed By: #### C BC ####[facility] Miprjkamkx6394 [place] [address]Dr. Farhat Leal Lymphocytes/100 WBC (Bld) 8.7 % Critically low 20.5-60.0 [facility] Comment on above: Performed By: #### C BC ####[facility] Mwnjaddeyu4452 [place] [address]Dr. Farhat Leal MANUAL DIFF REQ NO Normal [facility] Comment on above: Performed By: #### C BC ####[facility] Xpiljfebyu8456 [place] [address]Dr. Farhat Leal MCH (RBC) [Entitic mass] 31.6 pg Normal 25.9-34.0 [facility] Comment on above: Performed By: #### C BC ####[facility] Pvtuhzytjr1289 [place] [address]Dr. Farhat Leal MCHC (RBC) [Mass/Vol] 33.3 g/dL Normal 29.9-35.2 [facility] Comment on above: Performed By: #### C BC ####[facility] Ccuhyzvano6222 [place] [address]Dr. Farhat Leal MCV (RBC) [Entitic vol] 94.9 fL Critically high 80.0-94.0 [facility] Comment on above: Performed By: #### C BC ####[facility] Cdquxttxbq8345 [place] [phone]. Farhat Leal MONO # 1.0 103/ul Critically high 0.3-0.8 The [facility] Comment on above: Performed By: #### C BC ####[facility] Iipwfqfezr5112 [place] [phone]. Farhat eLal Monocytes/100 WBC (Bld) 11.3 % Normal 1.7-12.0 The [facility] Comment on above: Performed By: #### C BC ####[facility] Zanlbkxslg4138 [place] [phone]. Farhat Leal NEUT # 6.9 103/ul Critically high 1.4-6.5 The [facility] Comment on above: Performed By: #### C BC ####[facility] Jyuyximkbd9327 [place] [phone]. Farhat Leal Neutrophils/100 WBC (Bld) 77.6 % Critically high 43.0-75.0 The [facility] Comment on above: Performed By: #### C BC ####[facility] Fxdduuwtid6482 [place] [phone]. Farhat Leal Platelet mean volume (Bld) [Entitic vol] 9.7 fL Normal 9.5-13.5 [facility] Comment on above: Performed By: #### C BC ####[facility] Mkrrkvrjhl6081 [place] [phone]. Farhat Leal PLT 171 103/ul Normal 150-450 The [facility] Comment on above: Performed By: #### C BC ####[facility] Jvtnobadpp5631 [place] [phone]. Farhat Leal RBC 4.30 106/ul Critically low 4.70-6.10 The [facility] Comment on above: Performed By: #### C BC ####[facility] Rphgkwrawk7253 [place] [phone]. Farhat Leal WBC 8.9 103/ul Normal 4.0-11.0 [facility] Comment on above: Performed By: #### C BC ####[facility] Teseammarm4448 [place] [address]Dr. Farhat Leal Covid-19 PCR (CVDTB)on SARS-CoV-2 (COVID-19) RNA JOSH+probe Ql (Unsp spec) Not detected Normal NOT DETECTED [facility] Comment on above: Result Comment: When [...] for this test is supported by the [place] and Human Service's declaration that [...] be used). Performed By: #### C VDTBH ####[facility] Qfffghmdtj7615 [place] [address]Dr. Farhat Leal PROF 14(COMP METB)on 022 Albumin [Mass/Vol] 2.6 g/dL Critically low 3.4-5.[address] [facility] Comment on above: Performed By: #### C MP ####[facility] Mfftnyiflk6792 [place] [address]Dr. Farhat Leal Albumin/Globulin [Mass ratio] 0.7 {ratio} Normal [facility] Comment on above: Performed By: #### C MP ####[facility] Vlolpfllwv8950 [place] [address]DrSkylar Leal ALP [Catalytic activity/Vol] 88 U/L Normal 46-116 [facility] Comment on above: Performed By: #### C MP ####[facility] Ckppvbhmpp7888 [place] [address]Dr. Farhat Leal ALT [Catalytic activity/Vol] 15 U/L Critically low 16-63 [facility] Comment on above: Performed By: #### C MP ####[facility] Ujpqmvmswp5826 [place] [phone]. Farhat Leal Anion gap [Moles/Vol] 11.7 mmol/L Normal Th [facility] Comment on above: Performed By: #### C MP ####[facility] Jscimzxtne8398 [place] [phone]. Farhat Leal AST [Catalytic activity/Vol] 25 U/L Normal 15-37 [facility] Comment on above: Performed By: #### C MP ####[facility] Whymirvbym15[address] [place], [place] [address]Dr. Farhat Leal Bilirubin [Mass/Vol] 0.6 mg/dL Normal 0.2-1.0 [facility] Comment on above: Performed By: #### C MP ####[facility] Thgjoktwln4[address] [place], [place] [address]Dr. Farhat Leal Calcium [Mass/Vol] 8.9 mg/dL Normal 8.5-10.1 [facility] Comment on above: Performed By: #### C MP ####[facility] Qvkdsqrfxt2276[address] [place], [place] [address]Dr. Farhat Leal Chloride [Moles/Vol] 93 mmol/L Critically low 98-107 [facility] Comment on above: Performed By: #### C MP ####[facility] Ryrofqemte02[address] [place], [place] [address]Dr. Farhat Leal CO2 [Moles/Vol] 28.9 mmol/L Normal 21.0-32.0 The [facility] Comment on above: Performed By: #### C MP ####[facility] Bmdowopewi75[address] [place], [place] [address]Dr. Farhat Leal Creatinine [Mass/Vol] 2.09 mg/dL Critically high 0.70-1.30 [facility] Comment on above: Performed By: #### C MP ####[facility] Quybdnybba7[address] [place], [place] [address]Dr. Farhat Leal EGFR-AF ICELANDIC 38 mL/min/1.73m2 Critically low >=60 [facility] Comment on above: Performed By: #### C MP ####[facility] Iwzapoqjax1422 [place] [address]Dr. Farhat Elvis EGFR-NON AF ICELANDIC 31 mL/min/1.73m2 Critically low >=60 [facility] Comment on above: Performed By: #### C MP ####[facility] Navgrskops35[address] [place], [place] [address]Dr. Madelynlorri Elvis Globulin (S) [Mass/Vol] 3.7 g/dL Normal [facility] Comment on above: Performed By: #### C MP ####[facility] Lhecofwfwi67[address] [place], [place] [address]Dr. Farhat Leal Glucose [Mass/Vol] 214 mg/dL Critically high 74-106 [facility] Comment on above: Performed By: #### C MP ####[facility] Ulayqnrkna0826[address] [place], [place] [address]Dr. aFrhat Leal Potassium [Moles/Vol] 5.6 mmol/L Critically high 3.5-5.1 [facility] Comment on above: Performed By: #### C MP ####[facility] Uxwqsecfey688[address] [place], [place] [address]Dr. Farhat Leal Protein [Mass/Vol] 6.3 g/dL Critically low 6.4-8.[address] [facility] Comment on above: Performed By: #### C MP ####[facility] Kmykwatrlg2399[address] [place], [place] [address]Dr. Farhat Leal Sodium [Moles/Vol] 128 mmol/L Critically low 136-[address] [facility] Comment on above: Performed By: #### C MP ####[facility] Sslmtdjyld[address] [place], [place] [address]Dr. Farhat Leal Urea nitrogen [Mass/Vol] 65.0 mg/dL Critically high 7.0-18.0 [facility] Comment on above: Performed By: #### C MP ####[facility] Lnlrcunjbi5[address] [place], [place] [address]Dr. Farhat Leal Urea nitrogen/Creatinine [Mass ratio] 31.1 mg/mg Normal [facility] Comment on above: Performed By: #### C MP ####[facility] Ciyrcsedcs2[address] [place], [place] [address]Dr. Farhat Elvis Albumin [Mass/Vol] 2.5 g/dL Critically low 3.4-5.0 Th e [facility] Comment on above: Performed By: #### T MYRIAM, CMP ####[facility] Gghupxczll79[address] [place], [place] [address]Dr. Farhat Elvis Albumin/Globulin [Mass ratio] 0.7 {ratio} Normal [facility] Comment on above: Performed By: #### T MYRIAM, CMP ####[facility] Bqtilytyag7[address] [place], [place] [address]Dr. Madelynlorri Leal ALP [Catalytic activity/Vol] 83 U/L Normal 46-116 [facility] Comment on above: Performed By: #### T MYRIAM, CMP ####[facility] Qcaknghpfj8726[address] [place], [place] [address]Dr. Farhat Elvis ALT [Catalytic activity/Vol] 16 U/L Normal 16-63 [facility] Comment on above: Performed By: #### T MYRIAM, CMP ####[facility] Dcchwkuyht10[address] [place], [place] [address]Dr. Madelynlorri Elvis Anion gap [Moles/Vol] 9.7 mmol/L Normal [facility] Comment on above: Performed By: #### T MYRIAM, CMP ####[facility] Vssxvswpnw5[address] [place], [place] [address]Dr. Madelynlorri Leal AST [Catalytic activity/Vol] 27 U/L Normal 15-37 The [facility] Comment on above: Performed By: #### T MYRIAM, CMP ####[facility] Triimetody398[address] [place], [place] [address]Dr. Farhat Leal Bilirubin [Mass/Vol] 0.5 mg/dL Normal 0.2-1.0 [facility] Comment on above: Performed By: #### T MYRIAM, CMP ####[facility] Kytuvycifx8[address] [place], [place] [address]Dr. Farhat Lael Calcium [Mass/Vol] 8.8 mg/dL Normal 8.5-10.1 [facility] Comment on above: Performed By: #### T MYRIAM, CMP ####[facility] Lnactfwgkw[address] [place], [place] [address]Dr. Farhat Leal Chloride [Moles/Vol] 95 mmol/L Critically low 98-107 [facility] [facility] Comment on above: Performed By: #### T MYRIAM, CMP ####[facility] [address] [place], [place] [address]Dr. Farhat Leal CO2 [Moles/Vol] 30.5 mmol/L Normal 21.0-32.0 [facility] Comment on above: Performed By: #### T MYRIAM, CMP ####[facility] [address] [place], [place] [address]Dr. Farhat Leal Creatinine [Mass/Vol] 2.18 mg/dL Critically high 0.70-1.30 [facility] Comment on above: Performed By: #### T MYRIAM, CMP ####[facility] [address] [place], [place] [address]Dr. Farhat Leal EGFR-AF ICELANDIC 36 mL/min/1.73m2 Critically low >=60 [facility] Comment on above: Performed By: #### T MYRIAM, CMP ####[facility] [address] [place], [place] [address]Dr. Farhat Lela EGFR-NON AF ICELANDIC 30 mL/min/1.73m2 Critically low >=60 [facility] Comment on above: Performed By: #### T MYRIAM, CMP ####[facility] G[address]se[address] [place], [place] [address]Dr. Farhat Leal Globulin (S) [Mass/Vol] 3.5 g/dL Normal [facility] Comment on above: Performed By: #### T MYRIAM, CMP ####[facility] [address] [place], [place] [address]Dr. Farhat Leal Glucose [Mass/Vol] 141 mg/dL Critically high 74-106 [facility] Comment on above: Performed By: #### T MYRIAM, CMP ####[facility] [address] [place], [place] [address]Dr. Farhat Leal Potassium [Moles/Vol] 5.2 mmol/L Critically high 3.5-5.1 [facility] Comment on above: Performed By: #### T MYRIAM, CMP ####[facility] [address] [place], [place] [address]Dr. Farhat Leal Protein [Mass/Vol] 6.0 g/dL Critically low 6.4-8.[address] [facility] Comment on above: Performed By: #### T MYRIAM, CMP ####[facility] Wss[address] [place], [place] [address]Dr. aFrhat Leal Sodium [Moles/Vol] 130 mmol/L Critically low 136-[address] [facility] Comment on above: Performed By: #### T MYRIAM, CMP ####[facility] Ox[address]ks[address] [place], [place] [address]Dr. Farhat Leal Urea nitrogen [Mass/Vol] 63.0 mg/dL Critically high 7.0-18.0 [facility] Comment on above: Performed By: #### T MYRIAM, CMP ####[facility] [address] [place], [place] [address]Dr. Farhat Leal Urea nitrogen/Creatinine [Mass ratio] 28.9 mg/mg Normal [facility] Comment on above: Performed By: #### T MYRIAM, CMP ####[facility] [address] [place], [place] [address]Dr. Farhat Leal PROTIMEon 09-18-2021 INR Coag (PPP) [Relative time] 1.06 {INR} Normal [facility] Comment on above: Performed By: #### P T, PTT ####[facility] [address] [place], [place] [address]Dr. Farhat Leal INR GUIDELINES SEE BELOW Normal [facility] Comment on above: Result Comment: MALINA RED INR: 2.0 - 3.0 CONDITIONS NOT LISTED BELOW 2.5 - 3.5 FOR PROSTHETIC HEART VALVE REPLACEMENT 2.5 - 3.5 RECURRENT THROMBOSIS Performed By: #### P T, PTT ####[facility] [address] [place], [place] [address]Dr. Farhat Leal PT Coag (PPP) [Time] 11.4 s Normal 9.0-11.6 [facility] Comment on above: Performed By: #### P T, PTT ####[facility] [address] [place], [place] [address]Rz. Farhat Leal PTTon 09-18-2021 aPTT Coag (Bld) [Time] 27.9 s Normal 22.3-36.2 [facility] Comment on above: Performed By: #### P T, PTT ####[facility] [address] [place], [place] [address]Rd. Farhat Leal TSHon 09-18-2021 TSH 7.099 uIU/mL Critically high 0.358-3.740 [facility] Comment on above: Performed By: #### T SH, CMP ####[facility] [address] [place] [id number]. Farhat Leal US SALOME DOP LEG RTon 09-19-19 22 US SALOME DOP LEG RT Normal [facility] XR CHEST 1 Von 09-18-2021 XR CHEST 1 V Normal [facility] XR HIP RT 2 3V W PELVISon XR HIP RT 2 3V W PELVIS Normal [facility] Vital Signs Date Time Vital Sign Value Performing Clinician Facility 07-20-2022 13:35-0400 Body temperature 97.4 [degF] DO Devon Ball Work Phone: [facility] 07-20-2022 13:35-0400 Diastolic blood pressure 50 mm[Hg] DO Devon Ball Work Phone: [facility] 07-20-2022 13:35-0400 Heart rate 67 /min DO Devon Ball Work Phone: [facility] 07-20-2022 13:35-0400 Respiratory rate 20 /min DO Devon Ball Work Phone: [facility] 07-20-2022 13:35-0400 Systolic blood pressure 98 mm[Hg] DO Devon Ball Work Phone: [facility] 06-29-2022 14:46-0400 Body height 193.04 cm DO Devon Moreira Work Phone: [facility] 02-26-2022 13:11-0500 Body temperature 96.6 [degF] Hina Peterson MD Work Phone: [facility] 02-26-2022 13:11-0500 Diastolic blood pressure 75 mm[Hg] Hina Peterson MD Work Phone: [facility] 02-26-2022 13:11-0500 Heart rate 75 /min Hina Peterson MD Work Phone: [facility] 02-26-2022 13:11-0500 Systolic blood pressure 88 mm[Hg] Hina Peterson MD Work Phone: [facility] 02-05-2022 08:29-0500 Body temperature 96.69 [degF] [facility] Work Phone: [facility] 02-05-2022 08:29-0500 Diastolic blood pressure 42 mm[Hg] [facility] Work Phone: [facility] 02-05-2022 08:29-0500 Heart rate 79 /min [facility] Work Phone: [facility] 02-05-2022 08:29-0500 SaO2% (BldA) [Mass fraction] 100 % [facility] Work Phone: [facility] 02-05-2022 08:29-0500 Systolic blood pressure 72 mm[Hg] [facility] Work Phone: [facility] 01-12-2022 11:00-0500 Diastolic blood pressure 54 mm[Hg] Alissa Major REST ROOM [employer]RON.[employer]KEEP[employer]INE [employer] Work Phone: [facility] 01-12-2022 11:00-0500 Heart rate 88 /min Alissa Major REST ROOM [employer]CH[employer] Work Phone: [facility] 01-12-2022 11:00-0500 SaO2% (BldA) [Mass fraction] 93 % Alissa Major REST ROOM MATRON.[employer]KEEP[employer]ACHINE MECHANIC Work Phone: [facility] 01-12-2022 11:00-0500 Systolic blood pressure 96 mm[Hg] [facility] REST ROOM MATRON.[employer]OOKKEEPING MACHINE MECHANIC Work Phone: [facility] 01-12-2022 10:12-0500 Body temperature 97.9 [degF] Alissa [facility] REST ROOM MATRON.[employer]OOKKEEPING MACHINE MECHANIC Work Phone: [facility] 01-12-2022 10:12-0500 Respiratory rate 18 /min [facility] REST ROOM MATRON.[employer]KEEP[employer] MACHINE MECH[employer]IC Work Phone: [facility] 11-17-2021 15:59-0400 Body height 193 cm No Reeder DO Work Phone: [facility] 11-17-2021 15:59-0400 Body weight 111.58 kg No Reeder DO Work Phone: [facility] 11-17-2021 15:59-0400 Diastolic blood pressure 59 mm[Hg] No Reeder DO Work Phone: [facility] 11-17-2021 15:59-0400 Heart rate 86 /min No Reeder DO Work Phone: [facility] 11-17-2021 15:59-0400 SaO2% (BldA) [Mass fraction] 97 % No Reeder DO Work Phone: [facility] 11-17-2021 15:59-0400 Systolic blood pressure 104 mm[Hg] No Reeder DO Work Phone: [facility] Encounters Encounter Date Encounter Type Care Provider Facility Start: 02-17-2023 End: 02-17-2023 ambulatory Devon Moreira Other [employer] Other Start: 02-17-2023 Telephone encounter Devon Moreira [facility] Start: 01-14-2023 End: 01-14-2023 ambulatory Devon Moreira Other [employer] Other Start: 01-14-2023 Sbsq nursing facil c are/day minor complj 15 min Devon Moreira [facility] Start: 12-10-2022 End: 12-10-2022 ambulatory Devon Moreira Other [employer] Other Start: 12-10-2022 Sbsq nursing facil c are/day minor complj 15 min Devon Lillie [facility] Start: 11-12-2022 End: 11-12-2022 ambulatory Devon Moreira Other [employer] Other Start: 11-12-2022 Sbsq nursing facil c are/day minor complj 15 min [facility] Start: 10-16-2022 Refill Asia Pike MD Work Phone: [facility] Comment on above: Med Change Request Start: 10-12-2022 End: 10-12-2022 ambulatory Devon Moreira Other [employer] Other Start: 10-12-2022 Telephone encounter Devon Moreira [facility] Start: 10-08-2022 End: 10-08-2022 ambulatory Devon Moreira Other [employer] Other Start: 10-08-2022 Sbsq nursing facil c are/day new problem 25 min [facility] Start: 09-22-2022 [facility]ill [facility] Comment on above: Rx Refills Start: 09-10-2022 End: 09-10-2022 ambulatory Devon Moreira Other [employer] Other Start: 09-10-2022 Sbsq nursing facil c are/day new problem 25 min Devon Moreira [facility] Start: 09-09-2022 End: 09-09-2022 ambulatory [facility] [place] Start: 08-06-2022 End: 08-06-2022 ambulatory Devon Moreira Other [employer] Other Start: 08-06-2022 Sbsq nursing facil c are/day new problem 25 min [facility] Start: 07-22-2022 End: 07-22-2022 ambulatory Devon Moreira Other [employer] Other Start: 07-22-2022 Telephone encounter Devon NUNEZ [facility] Start: 07-20-2022 End: 07-20-2022 ambulatory Sadia Aguilar Facility:[facility] Start: 07-20-2022 End: 07-20-2022 ambulatory DO Devon Moreira Work Phone: [facility] Work Phone: Start: 07-20-2022 End: 07-20-2022 Discharged Recurring DO Devon Moreira Work Phone: [facility] Work Phone: Start: 07-13-2022 End: 07-13-[address] DEVON MOREIRA Facility:[facility] Start: 07-10-2022 End: 07-10-[address] DEVON MOREIRA Facility:[facility] Start: 07-03-2022 End: 07-03-[address] DEVON MOREIRA Facility:[facility] Start: 06-26-2022 End: 06-26-[address] DEVON MOREIRA Facility:[facility] Start: 06-26-2022 End: 06-26-[address] DEVON MOREIRA Facility:[facility] Start: 06-25-2022 End: 06-25-2022 ambulatory Devon Moreira Other [employer] ? Other Start: 06-25-2022 Sbsq nursing facil c are/day minor complj 15 min Devon Moreira [facility] Start: 06-19-2022 End: 06-19-[address] DEVON MOREIRA Facility:[facility] Start: 06-15-2022 End: 07-15-2022 ambulatory SHAIKH Kate MURRAY Facility:[facility] Start: 06-12-2022 End: 06-12-[address] DOCTOR WALSH Facility:[facility] Start: 06-05-2022 Sbsq nursing facil c are/day new problem 25 min Devon Moreira [facility] Start: 06-05-2022 End: 06-05-[address] DEVON MOREIRA [facility] [employer] Other Start: 05-29-2022 End: 05-29-[address] DEVON MOREIRA Facility:[facility] Start: 05-22-2022 End: 05-22-[address] DEVON MOREIRA Facility:[facility] Start: 05-20-2022 End: 05-20-[address] DEVON MOREIRA Facility:[facility] Start: 05-18-2022 End: 06-12-2022 ambulatory SHAIKH Kate MURRAY Facility:[facility] Start: 05-15-2022 End: 05-15-[address] DEVON MOREIRA Facility:[facility] Start: 05-13-2022 End: 05-13-2022 ambulatory Van Olivarez REST ROOM [employer]RON.[employer]KEEP[employer] MACHINE MECH[employer]IC Work Phone: [facility] Comment on above: results Start: 05-13-2022 E-mail encounter fro m caregiver Van Olivarez APRN.BOOKKEEPING MACHINE MECHANIC Work Phone: [facility] Start: 05-08-2022 End: 05-08-[address] DEVON MOREIRA Facility:[facility] Start: 05-07-2022 End: 05-07-2022 ambulatory Devon Moreira Other [employer] ? Other Start: 05-07-2022 Sbsq nursing facil c are/day new problem 25 min Devon Moreira [facility] Start: 05-06-2022 End: 05-06-[address] [...] MOREIRA Facility:[facility] Start: 04-02-2022 ambulatory Van cortes REST ROOM MATRON.[employer]OOKKEEPING MACHINE MECHANIC Work Phone: [facility] [place] Start: 04-01-2022 End: 04-01-[address] DEVON MOREIRA Facility:[facility] Start: 03-22-2022 Refill Asia Pike MD Work Phone: [facility] Comment on above: Med Change Request Start: 03-21-2022 ambulatory SHAIKH Kate MURRAY Facilit y:[facility] Start: 03-11-2022 End: 03-11-[address] DEVON MOREIRA Facility:[facility] Start: 03-10-2022 End: 03-10-2022 ambulatory [facility] Start: 02-27-[address] 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 Comment on above: Results Start: 01-19-2022 End: 01-19-[address] DEVON MOREIRA Facility:[facility] Start: 01-16-2022 ambulatory SHAIKH Kate MURRAY Facilit y:[facility] Start: 01-12-2022 End: 01-12-2022 Subsequent hospital visit by physician Alissa Chavira APRN.BOOKKEEPING MACHINE MECHANIC Work Phone: Angio Comment on above: ILIANA (acute kidney in jury) (HCC) [N17.9] Start: 12-30-2021 End: 12-30-2021 ambulatory Paresh Fonseca MD Work Phone: Infectious Disease Comment on above: MRSA bacteremia (Arabella munira Dx); Diabetic foot ulcer with osteomyelitis (HCC) Start: 12-30-2021 End: 12-30-2021 Telemedicine consultation with patient Paresh Fonseca MD Work Phone: [facility] Start: 12-29-2021 End: 12-29-2021 ambulatory [...] Start: 12-08-2021 Orders Only Artur Jennyfer ry REST ROOM MATRON.BOOKKEEPING MACHINE MECHANIC Work Phone: [facility] Comment on above: Kidney replaced by t ransplant (Primary Dx) Start: 12-07-2021 ambulatory Paresh Fonseca MD Work Phone: [facility] Comment on above: CoPat Start (copat s top 12/27/21) Start: 12-05-2021 Telephone encounter Paresh Fonseca MD Work Phone: Infectious Disease Comment on above: Patient Update (evus held discussion/) Start: 12-01-2021 Follow-up encounter [facility] Provider [facility] Start: 12-01-2021 Patient encounter procedure [facility] Prov ider [facility] Department Start: 11-23-2021 End: 11-28-2021 [...] management encounter Start: 11-14-2021 End: 11-15-2021 ambulatory [facility] Sebastian [facility] Facility:[facility] Start: 10-24-2021 End: 11-15-2021 ambulatory DIAMOND Kate THOMPSONLIZZY Facility:[facility] Start: 10-22-2021 End: 10-23-2021 ambulatory [facility] Facility:[facility] Start: 10-06-2021 ambulatory Van cortes REST ROOM MATRON.BOOKKEEPING MACHINE MECHANIC Work Phone: [facility] Start: 09-30-2021 Refill Asia Pike MD Work Phone: [facility] Comment on above: Refill Request Start: 09-19-2021 End: 09-24-2021 Evaluation and management of inpatient DR PROSPER LEES Facility:[facility] Start: 09-18-2021 End: 09-19-[address] DEVON MOREIRA Facility:[facility] Start: 07-11-2021 Refill Asia Pike MD Work Phone: [facility] Comment on above: Refill Request Start: 06-05-2021 Telephone encounter Van Olivarez REST ROOM MATRON.BOOKKEEPING MACHINE MECHANIC Work Phone: [facility] Comment on above: Results Start: 02-05-2021 End: 02-13-2021 ambulatory UNKNOWN PROVIDER Facility:[facility] Procedures Date Procedure Procedure Detail Performing Clinician Start: 02-05-2022 Creatinine other source Asia Pike MD Work Phone: Start: 02-05-2022 Urnls dip stick/tabl et rgnt auto w/o microscopy Asia Pike MD Work Phone: Start: 01-12-2022 Prothrombin time Alissa Chavira REST ROOM MATRON.BOOKKEEPING MACHINE MECHANIC Work Phone: Start: 12-01-2021 PACEMAKER CLINIC CHECK [facility] Provider Start: 11-29-2021 Microscopic examinat ion of blood, culture DR PROSPER LEES Comment on above: Performed By: #### B [id number] ####[facility] [address] [place], [place] [address]Is. Madelynlorri Leal Start: 11-27-2021 Insertion of Infusio n Device into Right Basilic Vein, Percutaneous Approach DR PROSPER LEES Start: 11-24-2021 Excision of Right Fo ot Subcutaneous Tissue and Fascia, Open Approach DR PROSPER LEES Start: 11-24-2021 Excision of Right Tarsal, Open Approach DR PROSPER LEES Start: 11-24-2021 Resection of Right L ower Leg Tendon, Open Approach DR PROSPRE LEES Start: 09-07-2003 History of renal transplant KIDNEY TRANSPLANT STATUS Van Olivarez REST ROOM MATRON.[facility] Work Phone: History of renal transplant Kidney replaced by transplant Artur Leesjasvir REST ROOM MATRON.BOOKKEEPING MACHINE MECHANIC Work Phone: History of renal transplant Kidney replaced by transplant [facility] Work Phone: History of renal transplant Devon Ball Other History of renal transplant Kidney replaced by transplant Asia Pike MD Work Phone: Plan of Treatment Date Care Activity Detail Author Start: 02-26-2023 BP CONTROLLED (<130/80) BP CONTROLLE D (<130/80) [facility] Start: 02-05-2023 BP CONTROLLED (<130/80) BP CONTROLLE D (<130/80) [facility] Start: 01-12-2023 BP CONTROLLED (<130/80) BP CONTROLLE D (<130/80) [facility] Start: 11-17-2022 BP CONTROLLED (<130/80) BP CONTROLLE D (<130/80) [facility] Start: 10-16-2022 Influenza vaccination C [facility] Start: 04-08-2022 BP CONTROLLED (<130/80) BP CONTROLLE D (<130/80) [facility] Start: 02-15-2022 ADVANCE DIRECTIVE DISCUSSION ADVANCE DIRECTIVE DISCUSSION [facility] Start: 02-15-2022 DEPRESSION ASSESSMENT DEPRESSION ASS ESSMENT [facility] Start: 02-05-2022 COVID-19 VACCINE (5 - Yung risk series) COVID-19 VACCINE (5 - Yung risk series) [facility] Start: 11-27-2021 COVID-19 VACCINE (4 - Booster for Yung series) COVID-19 VACCINE (4 - Booster for Yung series) [facility] Start: 11-04-2021 Hemoglobin A1c/Hemoglobin.total in Blood HBA1C [facility] Start: 10-16-2021 Influenza vaccination C [facility] Start: 03-26-2021 COVID-19 VACCINE (3 - Yung risk 3-dose series) COVID-19 VACCINE (3 - Yung risk 3-dose series) [facility] Start: 03-26-2021 COVID-19 VACCINE (3 - Yung risk series) COVID-19 VACCINE (3 - Yung risk series) [facility] Start: 02-15-2021 ADVANCE DIRECTIVE DISCUSSION ADVANCE DIRECTIVE DISCUSSION [facility] Start: 02-15-2021 DEPRESSION ASSESSMENT DEPRESSION ASS ESSMENT [facility] Start: 01-05-2016 Hepatitis B screening URINE AL BUMIN:CREATININE RATIO [facility] Start: 04-06-2015 Hemoglobin A1c/Hemoglobin.total in Blood HBA1C [facility] Start: 11-22-2010 Hepatitis B surface antibody level LDL CHOLESTEROL [facility] Start: 2009 ADULT PREVNAR-13 ADULT PREVNAR-13 Cl [facility] Start: 2009 PNEUMOVAX AGE 65 AND OVER WITH 5YR LOOKBACK (#1) PNEUMOVAX AGE 65 AND OVER WITH 5YR LOOKBACK (#1) [facility] Start: 1994 SHINGRIX VACCINE (1 of 2) SHINGRIX VACCINE (1 of 2) [facility] Start: 10-18-1963 HEPATITIS A (1 of 2 - Risk 2-dose series) HEPATITIS A (1 of 2 - Risk 2-dose series) [facility] Start: 10-18-1963 Hepatitis A Vaccine (1 of 2 - Risk 2-dose series) Hepatitis A Vaccine (1 of 2 - Risk 2-dose series) [facility] Start: 10-18-1963 SHINGRIX VACCINE (1 of 2) SHINGRIX VACCINE (1 of 2) [facility] Start: 10-18-1963 Urine microalbumin profile [facility] Start: 1962 ANNUAL PCP TEAM HELPER [employer] DISEASE VISIT ANNUAL PCP TEAM CHRONIC DISEASE VISIT [facility] Start: 1956 Adult depression screening assessment DEPRESSION SCREENING [facility] Start: 1954 3 comp foot exam completed DIABETIC FOOT EXAM [facility] Start: 1954 Hepatitis C antibody , confirmatory test DILATED RETINAL EXAM [facility] Start: 1950 Pneumococcal Vaccine : 65+ (1 - PCV) Pneumococcal Vaccine: 65+ (1 - PCV) [facility] Start: 1950 PNEUMOCOCCAL: 65+ (1 - PCV) PNEUMOCOCCAL: 65+ (1 - PCV) [facility] Start: 1945 HEPATITIS A (1 of 2 - Risk 2-dose series) HEPATITIS A (1 of 2 - Risk 2-dose series) [facility] URINALYSIS, REFLEX MICROSCOPIC URINALYSIS, REFLEX MICROSCOPIC Lab Routine Screening for genitourinary condition Ordered: 10/06/2021 [facility] Work Phone: Comment on above: Ordered: 10/06/2021 URINALYSIS, REFLEX MICROSCOPIC URINALYSIS, REFLEX MICROSCOPIC Lab Routine Screening for genitourinary condition Ordered: 04/02/2022 [facility] Work Phone: Comment on above: Ordered: 04/02/2022 End: 11-17-2022 US LEG ARTERIAL PERIPH UNL VAS LAB US LEG ARTERIAL PERIPH UNL VAS LAB Vascular Lab Routine PAD (peripheral artery disease) (HCC) Nonhealing ulcer of heel (HCC) 1 Occurrences starting 11/17/2021 until 11/17/2022 [facility] Work Phone: Comment on above: 1 Occurrences starti ng 11/17/2021 until 11/17/2022 End: 11-17-2022 US LEG VEIN DVT UNL VAS LAB US LEG VEIN DVT UNL VAS LAB Vascular Lab Routine Acute deep vein thrombosis (DVT) of proximal end of right lower extremity (HCC) 1 Occurrences starting 11/17/2021 until 11/17/2022 [facility] Work Phone: Comment on above: 1 Occurrences starti ng 11/17/2021 until 11/17/2022 [facility]OTH[facility] & VAS BR[facility]ERS CT & VAS [facility] Immunizations Immunization Date Immunization Notes Care Provider Fa [facility] 12-11-2021 COVID-19 booster vaccine, age 12+ yr, bivalent (PFIZER-BIONTECH) Paresh Fonseca MD Work Phone: [facility] 12-11-2021 influenza, high-dose , quadrivalent vaccine (FLUZONE HIGH DOSE QUADRIVALENT) Paresh Fonseca MD Work Phone: [facility] 12-11-2021 influenza virus vaccine, unspecified formulation [employer] [facility] 03-09-2011 influenza virus vaccine, unspecified formulation Van Olivarez REST ROOM MATRON.BOOKKEEPING MACHINE MECHANIC Work Phone: [facility] 12-17-2007 influenza virus vaccine, unspecified formulation Van Sher REST ROOM MATRON.BOOKKEEPING MACHINE MECHANIC Work Phone: [facility] Work Phone: 02-11-2006 influenza virus vaccine, unspecified formulation Van Sher REST ROOM MATRON.BOOKKEEPING MACHINE MECHANIC Work Phone: [facility] Work Phone: 12-07-2003 influenza virus vaccine, unspecified formulation Vanbetzy Olivarez REST ROOM MATRON.BOOKKEEPING MACHINE MECHANIC Work Phone: [facility] Work Phone: 12-07-2003 pneumococcal polysaccharide vaccine, 23 valent Van Olivarez REST ROOM MATRON.BOOKKEEPING MACHINE MECHANIC Work Phone: [facility] Work Phone: NEGATED: Highlighted row has not occurred!12-10-2021 COVID-19 booster vaccine, age 12+ yr, bivalent (PFIZER-BIONTsiOPTICA) Paresh Fonseca MD Work Phone: [facility] NEGATED: Highlighted row has not occurred!12-10-2021 influenza, high-dose, quadrivalent vaccine (FLUZONE HIGH DOSE QUADRIVALENT) Paresh Fonseca MD Work Phone: [facility] Payers Date Payer Category Payer Medicare MEDICARE MEDICAR E A AND B [id number] 2009-Present [phone] [place] [address] Medicare [id number] 2009 Medicare MEDICARE MEDICAR E A AND B [id number] 2009-Present [phone] [place] [address] Medicare [id number] 2009 Unknown [employer] [place] [employer] [place] [employer]IC[employer] SUPPLEMENT [id number] 2009-Present [phone] [id number] [place] [address] Indemnity [id number] 1.2.840.270072.1.13.159.2.7.3 .165231.315 2009 Unknown [employer] [place] [employer] [place] MEDIC[employer] SUPPLEMENT [id number] 2009-Present [phone] [address] [employer] [address] Indemnity 1.2.840.939155.1.13.159.2.7.3 .493099.315 2009 Unknown [id number] 2.16.8 40.1.396775.19 2009 Unknown [id number] 1959 Medicare [id number] 1959 Self-pay 1944 Unknown [id number] 2.16.840.1.249618.3.579.2.732 1944 Unknown [id number] 2.16.840.1.300826.3.579.2.593 1944 Unknown [id number] 2.16.840.1.932083.3.579.2.593 1944 Unknown [id number] 2.16.840.1.539060.3.579.2.593 1944 Unknown [id number] 2.16.840.1.775565.3.579.2.593 1944 Unknown [id number] 2.16.840.1.381577.3.579.2.593 1944 Unknown [id number] 2.16.840.1.171011.3.579.2.593 1944 Unknown [id number] 2.16.840.1.265296.3.579.2.593 1944 Unknown [id number] 2.16.840.1.259678.3.579.2.593 1944 Unknown [id number] 2.16.840.1.147757.3.579.2.593 1944 Unknown [id number] 2.16.840.1.496402.3.579.2.593 1944 Unknown [id number] 2.16.840.1.324030.3.579.2.593 1944 Unknown [id number] 2.16.840.1.398664.3.579.2.593 1944 Unknown [id number] 2.16.840.1.107406.3.579.2.593 1944 Unknown [id number] 2.16.840.1.636061.3.579.2.593 1944 Unknown [id number] 2.16.840.1.663525.3.579.2.593 1944 Unknown [id number] 2.16.840.1.622408.3.579.2.593 1944 Unknown [id number] 2.16.840.1.963236.3.579.2.593 1944 Unknown [id number] 2.16.840.1.481207.3.579.2.593 1944 Unknown [id number] 2.16.840.1.204085.3.579.2.593 1944 Unknown [id number] 2.16.840.1.327955.3.579.2.593 1944 Unknown [id number] 2.16.840.1.794790.3.579.2.593 1944 Unknown [id number] 2.16.840.1.691144.3.579.2.593 1944 Unknown [id number] 2.16.840.1.244242.3.579.2.593 1944 Unknown [id number] 2.16.840.1.478396.3.579.2.593 1944 Unknown [id number] 2.16.840.1.008101.3.579.2.593 1944 Unknown [id number] 2.16.840.1.391991.3.579.2.593 1944 Unknown [id number] 2.16.840.1.840124.3.579.2.593 1944 Unknown [id number] 2.16.840.1.633549.3.579.2.593 1944 Unknown [id number] 2.16.840.1.844749.3.579.2.593 1944 Unknown [id number] 2.16.840.1.014361.3.579.2.593 1944 Unknown [id number] 2.16.840.1.815541.3.579.2.593 1944 Unknown [id number] 2.16.840.1.037579.3.579.2.593 1944 Unknown [id number] 2.16.840.1.921787.3.579.2.593 1944 Unknown [id number] 2.16.840.1.008043.3.579.2.593 1944 Unknown [id number] 2.16.840.1.196035.3.579.2.593 1944 Unknown [id number] 2.16.840.1.136772.3.579.2.593 1944 Unknown [id number] 2.16.840.1.680530.3.579.2.593 1944 Unknown [id number] 2.16.840.1.808457.3.579.2.593 1944 Unknown [id number] 2.16.840.1.432872.3.579.2.593 1944 Unknown [id number] 2.16.840.1.039974.3.579.2.593 1944 Unknown [id number] 2.16.840.1.312618.3.579.2.593 1944 Unknown [id number] 2.16.840.1.041258.3.579.2.593 1944 Unknown [id number] 2.16.840.1.748124.3.579.2.593 1944 Unknown [id number] 2.16.840.1.169371.3.579.2.593 1944 Unknown [id number] 2.16.840.1.639092.3.579.2.593 1944 Unknown [id number] 2.16.840.1.089434.3.579.2.593 Medicare Medicare Outpatient [id number] [id number] Unknown [id number] 2.16.840.1.705804.3.579.2.593 Unknown [id number] 2.16.840.1.080936.3.579.2.593 Unknown [id number] 2.16.840.1.760533.3.579.2.531 Social History Date Type Detail Facility Start: 03-09-2011 End: 02-26-2022 Tobacco smoking status NHIS Ex-smoker [facility] Work Phone: End: 02-15-1975 History of tobacco use Current smoker [facility] Work Phone: End: 02-15-1975 History of tobacco use Cigarette Smoker [facility] Work Phone: Start: 04-08-2021 End: 02-26-2022 Alcohol intake Current drinker of alcohol (finding) [facility] Start: 1945 Sex Assigned At Not on file C [facility] Start: 03-09-2011 End: 03-02-2022 Cigarettes smoked current (pack per day) - Reported 1 [facility] Work Phone: Start: 03-09-2011 End: 02-26-2022 Tobacco use and exposure Smokeless tobacco non-user [facility] Start: 09-25-2021 History SDOH Financial 5 [facility] Start: 09-25-2021 History SDOH Food Worry 1 [facility] Start: 09-25-2021 History SDOH Transpo rt Med 2 [facility] Start: 09-14-2021 End: 01-12-2022 Exposure to SARS-CoV-2 (event) Not sure [facility] Start: 02-26-2022 End: 03-02-2022 Sex Assigned At [facility] Work Phone: Start: 1945 Sex Assigned At Male F [facility] How hard is it for y ou to pay for the very basics like food, housing, medical care, and heating Not hard at all [facility] Work Phone: (I/We) worried whebrenden er (my/our) food would run out before (I/we) got money to buy more. Never true [facility] Work Phone: In the past 12 month s, was there a time when you were not able to pay the mortgage or rent on time? No [facility] Work Phone: Medical Equipment Procedure Code Equipment Code Equipment Original Text Equipment Identifier Dates Tray Powerline S urecuff 5fr Polyurethane Catheter 1 Lumen Microintroducer - [id number] Start: 12-06-2021 Clinical Notes 06-05-2021 to [...] are maintaining regular scheduled appts with their conveyor attendant. No bleeding complications Dec, Hyperlipidemia LDL goal [...] fluid balance and to avoid dehydration. Dec, prison (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 of insulin (ICD-10 - Z79.4) [facility] Other 10-26-2023 Evaluation note* Encounter Date Diagnosis Assessment Notes Treatment Notes Treatment Clinical Notes Nov, Longstanding persistent atrial fibrillation (ICD-10 - I48.11) This patient is in NSR or rate controlled. This patient is anticoagulated to prevent thromboembolic events. They are maintaining regular scheduled appts with their conveyor attendant. 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 No bleeding complications Oct, Type 1 diabetes [...] - Z94.0) Continue routine surveillance labs. 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 DX Code Needed. 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 No bleeding complications Sep, Type 1 diabetes [...] risk for cerebrovascular and cardiovascular disease. 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 Please review and advise. Ariadna Mcdowell, documented in this encounterReg[facility] Center07-27-2023 Evaluation note* Encounter Date Diagnosis Assessment Notes Treatment Notes Treatment Clinical Notes Aug, Longstanding persistent atrial fibrillation (ICD-10 - I48.11) This patient is in NSR or rate controlled. This patient is anticoagulated to prevent thromboembolic events. They are maintaining regular scheduled appts with their conveyor attendant. No s/s bleeding Aug, Type 1 diabetes [...] risk for cerebrovascular and cardiovascular disease. 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 Lightheaded in the office today, as BP is very low. He denies chest pain, SOB, palpitations, and bleeding on warfarin. Had routine labs last week. Review of Systems Musculoskeletal: Positive for arthritis, joint pain and myalgias. Neurological: Positive for light-headedness. All other systems reviewed and are negative.[facility] 09-09-2022 NoteUT Electrophysiology Consult Note Reason [...] at about 50-60 systolic. patient with friend/ set key driver from facility, we will take patient [...] of the right coronary artery with robust eikd-co-uivph collaterals. 5. Normal global left ventricular systolic function by noninvasive imaging. RECOMMENDATIONS: 1. Aggressive cardiovascular risk factor modification. 2. Optimization of medical management; aspirin 81 mg lifelong, Plavix 75 mg for a minimum of 6 months preferably long-term, statin plus or minus a beta betr and an angiotensin-converting enzyme inhibitor as tolerated. [...] Follow up with Dr. Galvez in the [facility] in the next 2 weeks; he may follow up with Dr. Orosco as needed for interventional issues. 5. Follow up with Dr. Devon Moreira as scheduled. PMH: Past Medical History: Diagnosis Date Abnormal ECG Arrhythmia Atrial fibrillation (CMS/HCC) Chronic kidney disease Coronary artery disease Diabetes mellitus (CMS/HCC) (more content not included)...[facility]06-22-2023 Evaluation note* Encounter Date Diagnosis Assessment [...] are maintaining regular scheduled appts with their conveyor attendant. No bleeding complications Jul, Type 1 diabetes [...] risk for cerebrovascular and cardiovascular disease. 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 Other 05-15-2023 Progress note Author Sadia Aguilar [facility] June 29, 2022 2:47pm Note Date/Time June 29, 2022 2:46p m [facility] [address] [place] [address] Wound Center Provider Note Signed Patient: Alex Almonte MR#: [id number] : 1945 Acct:[id number] Age/Sex: 76 / M Copies to: DO Sadia Whyte APRN~ HPI Date of Visit Date of Visit: Date of Service: 06/29/2022 Time of Service: 14:45 Narrative HPI: 12/30/21 Alex is a 76 year old male presenting to [facility] wound care for aninitial visit for eval and treatment of a sacral/coccyx area pressure ulcer. He resides at [facility]. There is an CHEESE COOK present for the visit. Medicalhoney gel will [...] his brief that was cleaned by this fiction and nonfiction writer prose as well as another nursing staff member, [...] from initial visit here Mode of Arrival/ Electric Motor Repairing Supervisor: Facility vehicle Assistive Device Used Today: Wheelchair and Indra Lives with:: Care/Nursing Facility Appetite Description: Within Normal Limits Who helps w/ dressing change?: Nursing Facility Why Do You Need Help?: Can't Reach Ulcer, Limited mobility and Taxing effort to leave home Smoking Status: Former smoker [facility] Medical History (Updated 03/03/22 @ 14:41 [...] Ulcer/Injury Staging: Unstageable Bed Appearance: Beefy Red, [place], Yellow and Rolled Edges Percent of Wound [...] <Electronically signed by DAVID Aguilar> 06/29/221446 [facility] Work Phone: 1(404) 284-653405-11-2023 Evaluation note* Encounter Date Diagnosis Assessment Notes [...] are maintaining regular scheduled appts with their conveyor attendant. No bleeding complications June, Hyperlipidemia LDL goal <100 (ICD-10 - E78.5) Instructed on diet and exercise with continued statin therapy.Discussed the beneficial effects of lowering cholesterol in reducing the risk for cerebrovascular and cardiovascular disease. 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 (ICD-10 - Z79.4) June, Kidney transplant status (ICD-10 - Z94.0) No s/s rejection [facility] Other 04-24-2023 Progress note Author Sadia Aguilar [facility] June 08, 2022 2:10pm Note Date/Time June 08, 2022 2:1 0pm [facility] [address] [place] [address] Wound Center Provider Note Signed Patient: Alex Almonte MR#: [id number] : 1945 Acct:[id number] Age/Sex: 76 / M Copies to: Devon Moreira,DO Sadia Aguilar APRN~ HPI Date of Visit Date of Visit: Date of Service: 06/08/2022 Time of Service: 14:07 Narrative HPI: 12/30/21 Alex is a 76 year old male presenting to [facility] wound care for aninitial visit for eval and treatment of a sacral/coccyx area pressure ulcer. He resides at [facility]. There is an CHEESE COOK present for the visit. Medicalhoney gel will [...] his brief that was cleaned by this fiction and nonfiction writer prose as well as another nursing staff member, [...] from initial visit here Mode of Arrival/ Electric Motor Repairing Supervisor: Facility vehicle Assistive Device Used Today: Wheelchair and Indra Lives with:: Care/Nursing Facility Appetite Description: Within Normal Limits Who helps w/ dressing change?: Nursing Facility Why Do You Need Help?: Can't Reach Ulcer, Limited mobility and Taxing effort to leave home Smoking Status: Former smoker [facility] Medical History (Updated 03/03/22 @ 14:41 [...] Ulcer/Injury Staging: Unstageable Bed Appearance: Beefy Red, [place], Yellow and Rolled Edges Percent of Wound [...] signed by DAVID Aguilar> 06/08/22 1410 [facility] Work Phone: 1(408) 816-706404-21-2023 Evaluation note* Encounter Date Diagnosis Assessment Notes [...] are maintaining regular scheduled appts with their conveyor attendant. May, prison (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 of insulin (ICD-10 - Z79.4) May, Kidney transplant status (ICD-10 - Z94.0) routine labs per clinic. 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 No open ulcerations present Pain controlled [facility] Other 03-27-2023 Progress note Author Sadia Aguilar [facility] May 11, 2022 1:41pm Note Date/Time May 11, 2022 1:4 0pm [facility] [address] [place] [address] Wound Center Provider Note Signed Patient: Alex Almonte MR#: [id number] : 1945 Acct:[id number] Age/Sex: 76 / M Copies to: Devon Moreira,DO Sadia Aguilar, REST ROOM MATRON~ HPI Date of Visit Date of Visit: Date of Service: 05/11/2022 Time of Service: 13:38 Narrative HPI: 12/30/21 Alex is a 76 year old male presenting to [facility] wound care for aninitial visit for eval and treatment of a sacral/coccyx area pressure ulcer. He resides at [facility]. There is an CHEESE COOK present for the visit. Medicalhoney gel will [...] his brief that was cleaned by this fiction and nonfiction writer prose as well as another nursing staff member, [...] from initial visit here Mode of Arrival/ Electric Motor Repairing Supervisor: Facility vehicle Assistive Device Used Today: Wheelchair and Indra Lives with:: Care/Nursing Facility Appetite Description: Within Normal Limits Who helps w/ dressing change?: Nursing Facility Why Do You Need Help?: Can't Reach Ulcer, Limited mobility and Taxing effort to leave home Smoking Status: Former smoker [facility] Medical History (Updated 03/03/22 @ 14:41 [...] Ulcer/Injury Staging: Unstageable Bed Appearance: Beefy Red, [place] and Yellow Percent of Wound Bed Granulated/Red: [...] <Electronically signed by DAVID Aguilar> 05/11/22 1341 [facility] Work Phone: 1(864) 832-332303-23-2023 Evaluation note* Encounter Date Diagnosis Assessment Notes [...] are maintaining regular scheduled appts with their conveyor attendant. 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 Author Type: Physician Type: Progress Notes Filed: 04/24/2022 10:32 AM Note Text: Encounter opened in error, patient not seen.[facility]02-28-2023 Progress note Author Sadia Aguilar [facility] April 14, 2022 2:19pm Note Date/Time April 14, 2022 2:18pm [facility] [address] [place] [address] Wound Center Provider Note Signed Patient: Alex Almonte MR#: [id number] : 1945 Acct:[id number] Age/Sex: 76 / M Copies to: DO Sadia Whyte APRN~ HPI Date of Visit Date of Visit: Date of Service: 04/14/2022 Time of Service: 14:18 Narrative HPI: 12/30/21 Alex is a 76 year old male presenting to [facility] wound care for aninitial visit for eval and treatment of a sacral/coccyx area pressure ulcer. He resides at [facility]. There is an CHEESE COOK present for the visit. Medicalhoney gel will [...] his brief that was cleaned by this fiction and nonfiction writer prose as well as another nursing staff member, [...] from initial visit here Mode of Arrival/ Electric Motor Repairing Supervisor: Facility vehicle Assistive Device Used Today: Wheelchair and Indra Lives with:: Care/Nursing Facility Appetite Description: Within Normal Limits Who helps w/ dressing change?: Nursing Facility Why Do You Need Help?: Can't Reach Ulcer, Limited mobility and Taxing effort to leave home Smoking Status: Former smoker [facility] Medical History (Updated 03/03/22 @ 14:41 [...] Ulcer/Injury Staging: Unstageable Bed Appearance: Beefy Red, [place] and Yellow Percent of Wound Bed Granulated/Red: [...] <Electronically signed by DAVID Aguilar> 04/14/22 1419 [facility] Work Phone: 1(291) 699-509902-16-2023 NotePatient Outreach (DAVISMMN) ALEX ALMONTE ([id number]) 1945 M TRN Date Time Provider Department 04/02/22 VAN OLIVAREZ During your visit today, we recorded the following information about you: Allergies As of Date: 04/02/2022 Noted Allergy Reaction PYRIDOSTIGMINE BROMIDE 08/04/2021 8 - GI Upset Date Reviewed: 02/26/2022 Reviewed by: Braden Abel MA - Fully Assessed Visit Diagnosis:Screening for genitourinary condition [Z13.89] Order(s):URINALYSIS, REFLEX MICROSCOPIC [[id number]] Order #: [id number] Prescriptions as of 04/06/2022 - tacrolimus IR [...] by mouth daily with lunch. 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 UNCOMPL ADULT-UNCONTRLLED [QVT3403] 02/24/2002 KIDNEY TRANSPLANT STATUS [Z94.0] 09/07/2003 PROPHYLACTIC IMMUNOTHERAPY [Z29.8] 07/30/2006 [facility] STEROIDS [[id number]] 07/30/2006 VITAMIN D DEFICIENCY NOS [E55.9] 09/07/2008 MIXED HYPERLIPIDEMIA [E78.2] 09/07/2008 SUMMARY 01/04/2015 ILIANA (acute kidney injury) (HCC) [N17.9] 01/04/2015 Diabetes mellitus (HCC) [E11.9] 01/04/2015 Cellulitis [L03.90] 01/04/2015 Diarrhea [R19.7] 01/04/2015 VTE (venous thromboembolism) [I82.90] 09/24/2021 CAD (coronary artery disease) [I25.10] 2016 Paroxysmal atrial fibrillation (HCC) [I48.0] HTN (hypertension) [I10] SA node dysfunction ([facility]) [I49.5] Altered tissue perfusion [R09.89] 09/30/2021 PAD (peripheral artery disease) (HCC) [I73.9] 09/26/2021 Osteomyelitis (HCC) [M86.9] 11/29/2021 Class 1 obesity due to excess calories with ser*11/29/2021 Mixed hyperlipidemia due to type 2 diabetes myles*11/29/2021 Type 2 diabetes mellitus with diabetic peripher*11/29/2021 Atherosclerosis of [place] artery of extremity w*11/29/2021 Malnutrition of moderate degree (HCC) [E44.0] 12/01/2021 Dermatitis associated with moisture [L30.8] 12/04/2021 Encounter Status:Closed by [employer], Arroy[employer] Video SolutionsUSER on 04/06/22[facility] 03-30-2022 Miscellaneous Notes* Telephone Encounter - Van Olivarez APRN.BOOKKEEPING MACHINE MECHANIC - 03/30/2022 12:16 PM EST The following [...] to pharmacy. Katina Duque documented in this encounterRegional Medical Center02-07-2023 Progress note Author Sadia Aguilar [facility] March 24, 2022 3:00pm Note Date/Time March 24, 2022 2 :59pm [facility] [address] [place] [address] Wound Center Provider Note Signed Patient: Alex Almonte MR#: [id number] : 1945 Acct:[id number] Age/Sex: 76 / M Copies to: DO Sadia Whyte APRN~ HPI Date of Visit Date of Visit: Date of Service: 03/24/2022 Time of Service: 14:58 Narrative HPI: 12/30/21 Alex is a 76 year old male presenting to [facility] wound care for aninitial visit for eval and treatment of a sacral/coccyx area pressure ulcer. He resides at [facility]. There is an CHEESE COOK present for the visit. Medicalhoney gel will [...] his brief that was cleaned by this fiction and nonfiction writer prose as well as another nursing staff member, [...] from initial visit here Mode of Arrival/ Electric Motor Repairing Supervisor: Facility vehicle Assistive Device Used Today: Wheelchair and Indra Lives with:: Care/Nursing Facility Appetite Description: Within Normal Limits Who helps w/ dressing change?: Nursing Facility Why Do You Need Help?: Can't Reach Ulcer, Limited mobility and Taxing effort to leave home Smoking Status: Former smoker [facility] Medical History (Updated 03/03/22 @ 14:41 [...] Ulcer/Injury Staging: Unstageable Bed Appearance: Beefy Red, [place] and Yellow Percent of Wound Bed Granulated/Red: [...] signed by DAVID Aguilar> 03/24/22 1500 [facility] Work Phone: 1(292) 123-218401-17-2023 Progress note Author Sadia Aguilar [facility] March 03, 2022 2:41pm Note Date/Time March 03, 2022 2 :41pm [facility] [address] [place] [address] Wound Center Provider Note Signed Patient: Alex Almonte MR#: [id number] : 1945 Acct:[id number] Age/Sex: 76 / M Copies to: DO Sadia Whyte APRN~ HPI Date of Visit Date of Visit: Date of Service: 03/03/2022 Time of Service: 14:38 Narrative HPI: 12/30/21 Alex is a 76 year old male presenting to [facility] wound care for aninitial visit for eval and treatment of a sacral/coccyx area pressure ulcer. He resides at [facility]. There is an CHEESE COOK present for the visit. Medicalhoney gel will [...] his brief that was cleaned by this fiction and nonfiction writer prose as well as another nursing staff member, [...] from initial visit here Mode of Arrival/ Electric Motor Repairing Supervisor: Facility vehicle Assistive Device Used Today: Wheelchair and Indra Lives with:: Care/Nursing Facility Appetite Description: Within Normal Limits Who helps w/ dressing change?: Nursing Facility Why Do You Need Help?: Can't Reach Ulcer, Limited mobility and Taxing effort to leave home Smoking Status: Former smoker [facility] Medical History (Updated 03/03/22 @ 14:41 [...] Ulcer Pressure Ulcer/Injury Staging: Unstageable Bed Appearance: [place] and Yellow Percent of Wound Bed Granulated/Red: 90 Percent of Devitalized: 10 Length (cm): 2.2 Width (cm): 1.8 Depth (cm): 1.9 CM Sq: 3.960 Surrounding Tissue Appearance: [place], Hyperpigmented and Satellite lesions Surrounding Tissue Temp: [...] signed by DAVID Aguilar> 03/03/22 1441 [facility] Work Phone: 1(421) 574-285901-13-2023 Miscellaneous Notes* Telephone Encounter - RAUL Davidson - 02/27/2022 10:24 AM EST Patient phones requesting refills as follows: Per pts sister takes 1 mg in AM and 1 mg in PM Requested Prescriptions Pending Prescriptions Disp Refills tacrolimus IR (PROGRAF) 1 mg capsule Sig: Take 2 capsules by mouth DAILY (6 AM). Please review and advise. RAUL Davidson documented in this encounterRegional Medical Center01-12-2023 NoteHNO ID: [id number] Author: Hina Peterson MD Service: ? Author Type: Physician Type: Progress Notes Filed: 02/26/2022 4:31 PM Note Text: Heart , Vascular and Thoracic [place] DEPARTMENT OF VASCULAR SURGERY OUTPATIENT VISIT DATE [...] his postop visit. He has been in prison since then and has been recovering from his acute on chronic congestive heart failure. His wound has largely been healing without any issues and the maxwell and sutures were removed at the nursing facility. He comes here with a lateral wound eschar. He denies any fevers, chills, or any drainage. He is on anticoagulation. 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 Magic Cup Randall with lunch aspirin, enteric coated (ASPIRIN, ENTERIC COATED) 81 mg EC tablet Take 1 tablet by mouth once daily. predniSONE (DELTASONE) 5 mg tablet TAKE 1 TABLET BY MOUTH EVERY DAY oxyCODONE IR (ROXICODONE) 5 mg immediate release tablet 1-2 tablets by ORAL/FEEDING TUBE route every 3 hours as needed. Food Supplement, Lactose-Free (ENSURE MAX (more content not included)... [facility]01-12-2023 History of Present illness Narrative* Hina Peterson MD - 02/26/2022 4:25 PM EST Images from the original note were not included. [facility] DEPARTMENT OF VASCULAR SURGERY OUTPATIENT VISIT DATE [...] his postop visit. He has been in prison since then and has been recovering from his acute on chronic congestive heart failure. His wound has largely been healing without any issues and the maxwell and sutures were removed at the [facility] facility. He comes here with a lateral wound eschar. He denies any fevers, chills, or any drainage. He is on anticoagulation. 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 Patient on mycophenolate mofetil ,cellcept and prednisone Mixed hyperlipidemia due to type 2 diabetes mellitus ([facility]) 11/29/2021 Osteomyelitis ([facility]) 11/29/2021 Paroxysmal atrial fibrillation ([facility]) Renal transplant, status post SA node dysfunction ([facility]) s/p pacemaker Type 2 diabetes mellitus with diabetic neuropathy, with long-term current use of insulin ([facility]) 02/24/2002 PAST SURGICAL HISTORY Procedure Laterality Date [...] by mouth daily with lunch. Magic Cup Randall with lunch aspirin, enteric coated (ASPIRIN, ENTERIC [...] 2022 TIME: 4:26 PM documented in this encounterRegional Medical Center01-05-2023 Miscellaneous Notes* Telephone Encounter - [...] Home and cell number(Ask for Alex's nurse) [phone] Diagnosis 4 mo f/u wound check Yumiko Mcclain documented in this encounterRegional Medical Center01-05-2023 Miscellaneous Notes* Telephone Encounter - Augusta Medrano RN - 02/19/2022 11:11 AM EST Alex Almonte's nursing facility, [facility], called regarding elevated tacrolimus level (23.9). Spoke with bedside nurse, Zoe, today. Level is from last week- unable to clearly determine if medications were held prior to lab work. Reviewed with nurse morning labs should occur prior to lab draws. Patient is scheduled for repeat labs tomorrow. Will assess new level. Augusta Medrano RN documented in this encounterRegional Medical Center01-04-2023 Miscellaneous Notes* Telephone Encounter - [...] advise. Mercedez Tavares MA documented in this encounterRegional Medical Center12-27-2022 Progress note Author Sadia Aguilar [facility] February 10, 2022 3:47pm Note Date/Time February 10, 2022 3:47pm [facility] [address] [place] [address] Wound Center Provider Note Signed Patient: Alex Almonte MR#: [id number] : 1945 Acct:[id number] Age/Sex: 76 / M Copies to: DO Sadia Whyte APRN~ HPI Date of Visit Date of Visit: Date of Service: 02/10/2022 Time of Service: 15:44 Narrative HPI: 12/30/21 Alex is a 76 year old male presenting to [facility] wound care for aninitial visit for eval and treatment of a sacral/coccyx area pressure ulcer. He resides at [facility]. There is an CHEESE COOK present for the visit. Medicalhoney gel will [...] his brief that was cleaned by this fiction and nonfiction writer prose as well as another nursing staff member, few weeks to follow up Subjective Pain Coccyx: Pain Description: Intermittent Pain Intensity: 0 Wound/Ulcer History When did wound start?: 4 weeks ago- from initial visit here Mode of Arrival/ Electric Motor Repairing Supervisor: Facility vehicle Assistive Device Used Today: Wheelchair and Indra Lives with:: Care/Nursing Facility Appetite Description: Within Normal Limits Who helps w/ dressing change?: Nursing Facility Why Do You Need Help?: Can't Reach Ulcer, Limited mobility and Taxing effort to leave home Smoking Status: Former smoker [facility] Medical History (Updated 01/20/22 @ 14:21 [...] Ulcer Pressure Ulcer/Injury Staging: Unstageable Bed Appearance: [place] and Yellow Percent of Wound Bed Granulated/Red: 90 Percent of Devitalized: 10 Length (cm): 2.5 Width (cm): 2.3 Depth (cm): 2.1 CM Sq: 5.750 Surrounding Tissue Appearance: [place], Hyperpigmented and Satellite lesions Surrounding Tissue Temp: [...] signed by DAVID Aguilar> 02/10/22 1547 [facility] Work Phone: 1(858) 203-974212-22-2022 NoteHNO ID: [id number] Author: Asia Pike MD Service: ? Author Type: Physician Type: Progress Notes Filed: 02/05/2022 9:38 AM Note Text: [facility] Follow up Portions of this note [...] and snacks patient declined. Indra scale at [facility]: 166.2 lbs per patient. Bed sore on coccyx causing discomfort. Being changed regularly at SNF- reported to be smaller around but still as deep. Patient not very up to date with medications. Patient brought paperwork from [facility] with all medications being received. Patient unsure if they have been drawing labs regularly. Last Tac from 01/19: 12.9 and K 5.9. In need of current labs. Lab orders will be sent with patient and follows as below: [facility]ney and Pancreas Transplant Standing Lab Orders [id number] [place], [place] [address] February 05, 2022 [place] 1945 [id number] STANDARD TESTING: Diagnosis Codes: Z94.0 Kidney Transplant [...] AT YOUR LABORATORY FACILITY AND FAX TO [phone]. PLEASE CALL [phone]. Provider: Dr. Pike Current Outpatient Medications Medication [...] by mouth daily with lunch. Magic Cup Randall with lunch aspirin, enteric coated (ASPIRIN, ENTERIC COATED) 81 mg EC tablet Take 1 tablet by mouth once daily. atorvastatin (LIPITOR) 40 mg tablet 1 tablet by ORAL/FEEDING TUBE route daily at bedtime. (more content not included)...[facility]12-22-2022 History of Present illness Narrative* Asia Pike MD - 02/05/2022 8:20 AM EST Images from the original note were not included. [facility] Follow up Portions of this note [...] and snacks patient declined. Indra scale at [facility]: 166.2 lbs per patient. Bed sore on coccyx causing discomfort. Being changed regularly at SNF- reported to be smaller around but still as deep. Patient not very up to date with medications. Patient brought paperwork from [employer] with all medications being received. Patient unsure if they have been drawing labs regularly. Last Tac from 01/19: 12.9 and K 5.9. In need of current labs. Lab orders will be sent with patient and follows as below: Kidney and Pancreas Transplant Standing Lab Orders [id number] [facility] [address] [place], [place] [address] February 05, 2022 Alex Kate Almonte 1945 [id number] STANDARD TESTING: Diagnosis Codes: Z94.0 Kidney Transplant [...] AT YOUR LABORATORY FACILITY AND FAX TO [phone]. PLEASE CALL [phone]. Provider: Dr. Pike Current Outpatient Medications Medication [...] by mouth daily with lunch. Magic Cup Randall with lunch aspirin, enteric coated (ASPIRIN, ENTERIC [...] complexity. Asia Pike MD documented in this encounterRegional Medical Center12-06-2022 Progress note Author Sadia Aguilar [facility] January 20, 2022 2:21pm Note Date/Time January 20, 2022 2 :21pm [facility] [address] [place] [address] Wound Center Provider Note Signed Patient: Alex Almonte MR#: [id number] : 1945 Acct:[id number] Age/Sex: 76 / M Copies to: DO Sadia Whyte APRN~ HPI Date of Visit Date of Visit: Date of Service: 01/20/2022 Time of Service: 14:17 Narrative HPI: 12/30/21 Alex is a 76 year old male presenting to [facility] wound care for aninitial visit for eval and treatment of a sacral/coccyx area pressure ulcer. He resides at [facility]. There is an CHEESE COOK present for the visit. Medicalhoney gel will [...] from initial visit here Mode of Arrival/ Electric Motor Repairing Supervisor: Facility vehicle Assistive Device Used Today: Wheelchair and Indra Lives with:: Care/Nursing Facility Appetite Description: Within Normal Limits Who helps w/ dressing change?: Nursing Facility Why Do You Need Help?: Can't Reach Ulcer, Limited mobility and Taxing effort to leave home Smoking Status: Former smoker [facility] Medical History (Updated 01/20/22 @ 14:21 [...] Ulcer Pressure Ulcer/Injury Staging: Unstageable Bed Appearance: [place] and Yellow Percent of Wound Bed Granulated/Red: 40 Percent of Devitalized: 60 Length (cm): 5.2 Width (cm): 3.4 Depth (cm): 1.8 CM Sq: 17.680 Surrounding Tissue Appearance: [place] and Hyperpigmented Surrounding Tissue Temp: Warm Drainage [...] <Electronically signed by DAVID Aguilar> 01/20/22 1421 [facility] Work Phone: [phone]) 405-984312-06-2022 Miscellaneous Notes* Telephone Encounter - aVn Olivarez APRN.CNP - 01/20/2022 1:12 PM EST Labs noted from yesterday. Pt is currently residing at [facility], I spoke with the Nurse, the results has been addressed by Physician caring for pt. He had been placed on Chlor Con and this has been discontinued and hyperkalemia has been treated. Van Olivarez APRN.CNP documented in this encounterRegional Medical Center11-28-2022 Surgical operation note* Brief Op Note - Misbah Landis PA-C - 01/12/2022 10:41 AM EST BRIEF OPERATIVE / PROCEDURE NOTE LOG ID: [id number] SURGERY/PROCEDURE DATE: 01/12/2022 INCISION/PROCEDURE START TIME: 10:32 AM INCISION CLOSE/PROCEDURE END TIME: 10:35 AM SURGEON(S)/PROCEDURALIST(S) AND SENIOR TECHNICAL SPECIALIST(S): Misbah Landis PA-C SURGERY/PROCEDURE(S): Removal tunneled vascular access catheter under local anesthesia ANESTHESIA: Procedural Sedation FINDINGS: Catheter removed intact ESTIMATED BLOOD LOSS: 0 ml SPECIMENS: None COMPLICATIONS: None PRE-OP/PRE-PROCEDURE DIAGNOSIS: Foot Ulcer POST-OP/POST-PROCEDURE DIAGNOSIS: Same as Preop SIGNATURE: Misbah Landis PA-C PATIENT NAME: Alex Almonte DATE: January 12, 2022 TIME: 10:42 AM documented in this encounterRegional Medical Center11-22-2022 Nurse Note* Laxmi Archibald RN - 01/06/2022 1:55 PM EST Pre-procedure instructions: Contacted patient's sister, Munira Brothers and nurse at [facility], Jada ([phone]) andconfirmed appt. for Gerhard removal scheduled on 01/12/22, at [facility]. If instructions are not followed your [...] signed. Arrival at 9:30am [facility] [facility] and check in for your procedure. Compliance Officer/Transportation: How will you be arriving for your procedure? Ambulance service. To be arranged by [facility]. If you develop any of the following symptoms before your procedure, please call [phone]. Chills, joint pain, rash, sore throat, cough, loss of smell, reddened eyes, vomiting, abdominal pains, diarrhea, loss of taste, severe headache, weakness, bruising or bleeding, fever, muscle pain, shortness of breath Recovery expectations: You can expect to be in recovery for 30 minutes following the procedure. Written instructions provided to patient via [employer] If you have any questions please call [phone] documented in this encounterRegional Medical Center11-15-2022 Progress note Author Sadia Aguilar [facility] December 30, 2021 1:49pm Note Date/Time December 30, 2021 1:49pm [facility] [address] [place] [address] Wound Center Provider Note Signed Patient: Alex Almonte MR#: [id number] : 1945 Acct:[id number] Age/Sex: 76 / M Copies to: DO Sadia Whyte APRN~ HPI Date of Visit Date of Visit: Date of Service: 12/30/2021 Time of Service: 13:44 Narrative HPI: 12/30/21 Alex is a 76 year old male presenting to [facility] wound care for aninitial visit for eval and treatment of a sacral/coccyx area pressure ulcer. He resides at [facility]. There is an CHEESE COOK present for the visit. Medicalhoney gel will [...] start?: 4 weeks ago Mode of Arrival/ Electric Motor Repairing Supervisor: Facility vehicle Assistive Device Used Today: Wheelchair and Indra Lives with:: Care/Nursing Facility Appetite Description: Within Normal Limits Who helps w/ dressing change?: Nursing Facility Why Do You Need Help?: Can't Reach Ulcer, Limited mobility and Taxing effort to leave home Smoking Status: Former smoker [facility] Medical History (Updated 12/30/21 @ 13:49 [...] 0.1 CM Sq: 38.500 Surrounding Tissue Appearance: [place] and Hyperpigmented Surrounding Tissue Temp: Warm Drainage [...] By: <Electronically signed by DAVID Aguilar> 12/30/21 65[address] [facility] Work Phone: [phone]) 305-514511-15-2022 History of Present illness Narrative* Paresh Fonseca [...] the rehab facility He is currently at [facility] in [facility] Seen on video together with Zoe -history obtained from bedside nursing. he is getting up in a chair, working with PT diet is back to regular hes doing well. 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 has scabs on the R lateral side but no wound care concerns. It continues to heal. He has a follow-up with vascular surgery later December 2021. has a sacral wound -- he has local wound care following this at [facility] WBC 6.0, creatinine -- 0.8. alt [...] by mouth daily with lunch. Magic Cup Randall with lunch aspirin, enteric coated (ASPIRIN, ENTERIC [...] is a 76 year old male from [facility]. 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 History of PAD CAD status post CABG, diabetes, atrial fibrillatioN He originally presented [facility] for having altered mental status and [...] 3. Status post right heel I&D at [facility] on 11/24/2021. 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 4. CKD - s/p gerhard placement 5. immunocompromised Status post right open above the ankle [id number] - Enterobacter and MRSA from cultures Gram-positive [...] will need to coordinate with his SNF [phone] --our ID office will need to arrange for IR gerhard removal. Return to ID as needed 10 Minutes spent via virtual visit. SIGNATURE: Paresh Fonseca MD PATIENT NAME: Alex Almonte DATE: December 30, 2021 TIME: 9:52 AM documented in this encounterRegional Medical Center11-01-2022 Miscellaneous Notes* Telephone Encounter - Sulma Pardo - 12/16/2021 3:13 PM EDT Pt therapy aide is requesting orders for Stomp ampushield to be taken off pressure relief because it is causing sores on the thigh. Thanks, Sulma Pardo Instructional Leader documented in this encounterRegional Medical Center10-31-2022 Miscellaneous Notes* Telephone Encounter - Gwen Alfredo Adm Asst I - 12/15/2021 4:11 PM EDT Rupa LYLES from [facility] [phone] called to report IV Vancomycin was started until today. Patient missed 3 days, should patient makeup missed doses? Please advise. Gwen Alfredo Adm Asst I documented in this encounterRegional Medical Center10-21-2022 Instructions* Patient Instructions* Paresh Fonseca [...] serious illness Are taking any medications (prescription, [id number], vitamins, or herbal products) How will I receive EVUSHELD? EVUSHELD consists of two investigational medicines, tixagevimab and cilgavimab. You will receive 1 dose of EVUSHELD, consisting of 2 separate injections (tixagevimab and cilgavimab). EVUSHELD will be given to you by your healthcare provider as 2 intramuscular injections, given one after the other. Viruses can mold insert changer time (mutate) and develop into a [...] caused by certain SARS-CoV-2 variants: Viruses can mold insert changer time (mutate) and develop into a [...] treatment or prevention of COVID-19 go to https://www.fda.gov/vvxfpiren-sgljorgoyipe-tgy- response/yao-abhwv-jalxoirjvh-sbv-rfatqm-sacydwciy/vvpbdyfod-mdr-wuifiplhnkpqq for more information. It is your choice [...] to FDA MedWatch at www.fda.gov/medwatch or call 6-793-YAS-1554 or call [employer] . Additional Information If you have questions, visit the website or call the telephone number provided below. Website Telephone number http://www.VigilentusheldRunMyProcess How can I learn more about COVID-19? Ask your healthcare provider. Visit https://www.cdc.gov/COVID19 Contact your local or state public health department. What is an Emergency Use Authorization? The [place] FDA has made EVUSHELD (tixagevimab co-packaged with cilgavimab) available under an emergency access mechanism called an Emergency Use Authorization EUA. The EUA is supported by a [place] of Health and Human Service ([facility]) declaration that circumstances exist to justify the [...] monohydrate, polysorbate 80, sucrose, water. Distributed by: [employer] [place], [place] Manufactured for: [employer] [place], [place] [employer] 2021. All rightsreserved. documented in this encounterRegional Medical Center10-21-2022 Miscellaneous Notes* Telephone Encounter - Paresh Fonseca MD - 12/05/2021 3:05 PM EDT Evusheld (tixagevimab/cilgavimab) Eligibility and Patient Discussion The patient agrees to receive Evusheld (tixagevimab 300 mg and cilgavimab 300 mg) at [place]. The patient verbalized understanding of repeating a COVID test 72 hours prior to the injections. called up patient in response to her [employer] message today she tested covid negative on a rapid test on Wednesday this week Discussed evushed fact sheet and she agrees to proceed she will retest again today to be scheduled for Friday 12/08 at [facility] Paresh Fonseca MD documented in this encounterRegional Medical Center10-03-2022 Instructions* Patient Instructions* No Reeder DO - 11/17/2021 4:26 PM EDT -- continue coumadin -- will get vascular ultrasound for vein and artery of your right leg -- will have you see my interventional cardiology partner regarding your peripheral artery disease and if your artery disease is impairing your wound healing for the leg ulcer documented in this encounterRegional Medical Center10-03-2022 History of Present illness Narrative* No Reeder DO - 11/17/2021 3:53 PM EDT Images from the original note were not included. Heart [facility] V[facility] [place] Department of Cardiovascular Medicine SECTION [...] DVT scan. Leg elevation. No Reeder DO, [facility] Vascular Medicine documented in this encounter[address]16-2022 History of Past illness Narrative* Problem Noted Date Resolved Date Altered tissue perfusion 2 022 documented as of this encounter (statuses as of 09/30/2021) [address]16-2022 History of Past illness Narrative* Problem Noted Date Resolved Date Altered tissue perfusion 2 022 documented as of this encounter (statuses as of 10/09/2021) [address]16-2022 History of Past illness Narrative* Problem Noted Date Resolved Date Altered tissue perfusion 2 022 documented as of this encounter (statuses as of 11/18/2021) [address]16-2022 History of Past illness Narrative* Problem Noted Date Resolved Date Altered tissue perfusion 2 022 documented as of this encounter (statuses as of 12/01/2021) [address]16-2022 History of Past illness Narrative* Problem Noted Date Resolved Date Altered tissue perfusion 16/2 022 documented as of this encounter (statuses as of 12/05/2021) [address]16-2022 History of Past illness Narrative* Problem Noted Date Resolved Date Altered tissue perfusion 16/2 022 documented as of this encounter (statuses as of 12/08/2021) [address]16-2022 History of Past illness Narrative* Problem Noted Date Resolved Date Altered tissue perfusion 16/2 022 documented as of this encounter (statuses as of 12/08/2021) [address]16-2022 History of Past illness Narrative* Problem Noted Date Resolved Date Altered tissue perfusion 16/2 022 documented as of this encounter (statuses as of 12/12/2021) [address]16-2022 History of Past illness Narrative* Problem Noted Date Resolved Date Altered tissue perfusion 16/2 022 documented as of this encounter (statuses as of 12/15/2021) [address]16-2022 History of Past illness Narrative* Problem Noted Date Resolved Date Altered tissue perfusion 16/2 022 documented as of this encounter (statuses as of 12/16/2021) [address]16-[address]22 History of Past illness Narrative* Problem Noted Date Resolved Date Altered tissue perfusion 16/2 022 documented as of this encounter (statuses as of 12/31/2021) [address]16-2022 History of Past illness Narrative* Problem Noted Date Resolved Date Altered tissue perfusion 16/2 022 documented as of this encounter (statuses as of 01/13/2022) [address]16-2022 History of Past illness Narrative* Problem Noted Date Resolved Date Altered tissue perfusion 16/2 022 documented as of this encounter (statuses as of 01/20/2022) [address]16[address]22 History of Past illness Narrative* Problem Noted Date Resolved Date Altered tissue perfusion 16/2 022 documented as of this encounter (statuses as of 02/06/2022) [address]16[address]22 History of Past illness Narrative* Problem Noted Date Resolved Date Altered tissue perfusion 16/2 022 documented as of this encounter (statuses as of 02/20/2022) [address]16[address]22 History of Past illness Narrative* Problem Noted Date Resolved Date Altered tissue perfusion 16/2 022 documented as of this encounter (statuses as of 02/26/2022) [address]16[address]22 History of Past illness Narrative* Problem Noted Date Resolved Date Altered tissue perfusion 16/2 022 documented as of this encounter (statuses as of 02/27/2022) [address]16[address]22 History of Past illness Narrative* Problem Noted Date Resolved Date Altered tissue perfusion 16/2 022 documented as of this encounter (statuses as of 03/21/2022) [address]16[address]22 History of Past illness Narrative* Problem Noted Date Resolved Date Altered tissue perfusion 16/2 022 documented as of this encounter (statuses as of 03/30/2022) [address]16[address]22 History of Past illness Narrative* Problem Noted Date Resolved Date Altered tissue perfusion 16/2 022 documented as of this encounter (statuses as of 04/06/2022) [place] [address] History of Past illness Narrative* Problem Noted Date Resolved Date Altered tissue perfusion 16/2 022 documented as of this encounter (statuses as of 05/13/2022) [facility] of Past illness Narrative* Problem Noted Date Diagnosed Date Resolved Date Altered tissue perfusion documented as of this encounter (statuses as of 2022) [facility] History of Past illness Narrative* Problem Noted Date Diagnosed Date Resolved Date Altered tissue perfusion documented as of this encounter (statuses as of 10/29/2022) [facility] Miscellaneous Notes* Telephone Encounter - [...] to pharmacy. Katina Duque [facility] Miscellaneous Notes* Telephone Encounter - [...] and advise. Rosibel Daniel [facility] Miscellaneous Notes* Telephone Encounter - Van Olivarez APRN.CNP - 06/05/2021 4:46 PM EDT Spoke with pt regarding latest results, scr. at baseline. TAC level 8.6 prev two levels in 5 range.He believes latest level would be 12hr trough. No changes for now, if next level >7, can consider if reduction appropriate. He understands. Van Olivarez APRN.CNP [facility] Diagnosis Screening for genitourinary condition Screening for other and unspecified genitourinary condition documented in this encounter [facility]* Diagnosis Acute deep vein thrombosis (DVT) of proximal end of right lower extremity ([facility])- Primary PAD (peripheral artery disease) ([facility]) Peripheral vascular disease, unspecified Nonhealing ulcer of heel ([facility]) Anticoagulation management encounter Encounter for therapeutic drug monitoring documented in this encounter [facility] note* Diagnosis Encounter for prophylactic measures, unspecified- Primary documented in this encounter [facility] note* Diagnosis Kidney replaced by transplant- Primary documented in this encounter [facility] note* Diagnosis MRSA bacteremia- Primary Bacteremia Diabetic foot ulcer with osteomyelitis ([facility]) Type II or unspecified type diabetes mellitus with other specified manifestations, not stated as uncontrolled ILIANA (acute kidney injury) ([facility]) Acute kidney failure, unspecified documented in this encounter [facility] note* Diagnosis Kidney replaced by transplant- Primary 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 prison current use of immunosuppressive drug documented in this encounter [facility] note* Diagnosis Hx of BKA, right ([facility])- Primary PAD (peripheral artery disease) ([facility]) Peripheral vascular disease, unspecified Mixed hyperlipidemia due to type 2 diabetes mellitus ([facility]) Type II or unspecified type diabetes mellitus with renal manifestations, uncontrolled(250.42) Type II or unspecified type diabetes mellitus with renal manifestations, uncontrolled Type 2 diabetes mellitus with diabetic neuropathy, with long-term current use of insulin (HCC) Type 2 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, with long-term current use of insulin (HCC) Paroxysmal atrial fibrillation (HCC) Atrial fibrillation documented in this encounter [facility] note* Diagnosis Screening for genitourinary condition Screening for other and unspecified genitourinary condition documented in this encounter [facility] note* Diagnosis Onset Date Resolution Status At high risk for skin breakdown chronic Diabetes chronic Fecal incontinence chronic Limited mobility chronic Poor appetite chronic Pressure ulcer of sacral region, unstageable chronic Candidiasis resolved [facility] Work Phone: Evaluation noteNo InformationNoT[facility] Other Evaluation note* Diagnosis Kidney replaced by transplant- Primary documented in this encounter [facility] general Narrative - Reported* Type [...] COLONOSCOPY 1995,2001, 2014 Hospitalization History see above [employer] Other Progress note Author Sadia Aguilar [facility] July 20, 2022 1:48pm Note Date/Time July 20, 2022 1:48p m [facility] EN[facility] [address] [place] [address] Wound Center Provider Note Signed Patient: Alex Almonte MR#: [id number] : 1945 Acct:[id number] Age/Sex: 76 / M Copies to: DO Sadia Whyte APRN~ HPI Date of Visit Date of Visit: Date of Service: 07/20/2022 Time of Service: 13:46 Narrative HPI: 12/30/21 Alex is a 76 year old male presenting to [facility] wound care for aninitial visit for eval and treatment of a sacral/coccyx area pressure ulcer. He resides at [facility]. There is an CHEESE COOK present for the visit. Medicalhoney gel will [...] his brief that was cleaned by this fiction and nonfiction writer prose as well as another nursing staff member, [...] from initial visit here Mode of Arrival/ Electric Motor Repairing Supervisor: Facility vehicle Assistive Device Used Today: Wheelchair and Indra Lives with:: Care/Nursing Facility Appetite Description: Within Normal Limits Who helps w/ dressing change?: Nursing Facility Why Do You Need Help?: Can't Reach Ulcer, Limited mobility and Taxing effort to leave home Smoking Status: Former smoker [facility] Medical History (Updated 03/03/22 @ 14:41 [...] signed by DAVID Aguilar> 07/20/22 134[address] [facility] Work Phone: Reason for referral (narrative)* Outpatient Procedure (Routine) - Authorized Specialty Diagnoses / Procedures Referred By Contac t Referred To Contact [facility] [place] Diagnoses PAD (peripheral artery disease) (HCC) Nonhealing ulcer of heel (HCC) Procedures US LEG ARTERIAL PERIPH UNL VAS LAB DUP-SCAN LXTR ART/ARTL BPGS UNI/LMTD STUDY No Reeder DO [address] [place] [address] [facility] [place] [address] Referral ID Status Reason Start Date Expiration Date Visits Requested Visits Authorized [id number] Authorized Auto-Generat ed Referral 11/17/2021 11/17/2022 1 1 * Outpatient Procedure (Routine) - Authorized Specialty Diagnoses / Procedures Referred By Contac t Referred To Contact [facility] Diagnoses Acute deep vein thrombosis (DVT) of proximal end of right lower extremity (HCC) Procedures US LEG VEIN DVT UNL VAS LAB DUP-SCAN XTR VEINS UNILATERAL/LIMITED STUDY No Reeder DO [address] [place] [id number] [place] [address] Referral ID Status Reason Start Date Expiration Date Visits Requested Visits Authorized [id number] Authorized Auto-Generat ed Referral 11/17/2021 11/17/2022 1 1 * Consult, Test, Treat (Routine) - Authorized Specialty Diagnoses / Procedures Referred By Contac t Referred To Contact Cardiology Diagnoses PAD (peripheral artery disease) (HCC) Nonhealing ulcer of heel (HCC) Procedures CONSULT TO CARDIOLOGY OFFICE/OUTPATIENT [facility] 60-74 MINUTES Savanah Marcelo MD [address] [place] [address] Referral ID Status Reason Start Date Expiration Date Visits Requested Visits Authorized [id number] Authorized PCP Requested Referral 11/17/2021 11/17/2022 1 1 [facility] Summary Purpose Family History Relationship Condition Age at Onset Recorded Date/T kartik father Aneurysm Unknown father Parkinson's disease Unknown Advance Directives Documents on File Type Date Recorded Patient Accounting Advisory Services Manager Expl anation Advance Directive(s) Latest Code [...] Maker Relationship: M ajority of Adult Siblings (food service representative) DNR-CCA 09/26/2021 11:56 AM 10/01/2021 2:18 [...] Decision Maker Relationship: Majority of Adult Siblings (food service representative) Code Status History Code Status Date [...] Reason for Visit Chief Complaint Open Wound ([facility]) Reason for Visit At high risk for ski n breakdown Diabetes Fecal incontinence Limited mobility Poor appetite Pressure ulcer of sacral region, unstageable Candidiasis Additional Source Comments (unrecognized sect ion and content) No Status Records FoundNo Status Records FoundNo Status Records FoundNo Status Records FoundNo Status Records Found INFORMATION SOURCE (unrecogn ized section and content) DATE CREATED AUTHOR 02/20/2021 [employer] DATE CREATED AUTHOR AUTHOR'S ORGANIZ ATION 07/25/2022 [facility] DATE CREATED AUTHOR AUTHOR'S ORGANIZ ATION 08/16/2022 [facility] DATE CREATED AUTHOR AUTHOR'S ORGANIZ ATION 09/17/2022 [facility] DATE CREATED AUTHOR AUTHOR'S ORGANIZ ATION 01/14/2023 [facility] Source Comments (unrecognize d section and content) In the event this informatio n is protected by the Federal Confidentiality of Alcohol and Drug Abuse Patient Records regulations: The Federal rules restrict any use of the information to criminally investigate or prosecute any alcohol or drug abuse patient.[facility] Center[facility] the event this information is protected by the Federal Confidentiality of Alcohol and Drug Abuse Patient Records regulations: The Federal rules restrict any use of the information to criminally investigate or prosecute any alcohol or drug abuse patient.[facility] CenterIn the event this information is protected by the Federal Confidentiality of Alcohol and Drug Abuse Patient Records regulations: The Federal rules restrict any use of the information to criminally investigate or prosecute any alcohol or drug abuse patient.[facility] CenterIn the event this information is protected by the Federal Confidentiality of Alcohol and Drug Abuse Patient Records regulations: The Federal rules restrict any use of the information to criminally investigate or prosecute any alcohol or drug abuse patient.[facility] CenterIn the event this information is protected by the Federal Confidentiality of Alcohol and Drug Abuse Patient Records regulations: The Federal rules restrict any use of the information to criminally investigate or prosecute any alcohol or drug abuse patient.[facility] CenterIn the event this information is protected by the Federal Confidentiality of Alcohol and Drug Abuse Patient Records regulations: The Federal rules restrict any use of the information to criminally investigate or prosecute any alcohol or drug abuse patient.[facility] CenterIn the event this information is protected by the Federal Confidentiality of Alcohol and Drug Abuse Patient Records regulations: The Federal rules restrict any use of the information to criminally investigate or prosecute any alcohol or drug abuse patient.[facility] CenterIn the event this information is protected by the Federal Confidentiality of Alcohol and Drug Abuse Patient Records regulations: The Federal rules restrict any use of the information to criminally investigate or prosecute any alcohol or drug abuse patient.[facility] CenterIn the event this information is protected by the Federal Confidentiality of Alcohol and Drug Abuse Patient Records regulations: The Federal rules restrict any use of the information to criminally investigate or prosecute any alcohol or drug abuse patient.[facility] CenterIn the event this information is protected by the Federal Confidentiality of Alcohol and Drug Abuse Patient Records regulations: The Federal rules restrict any use of the information to criminally investigate or prosecute any alcohol or drug abuse patient.[facility] CenterIn the event this information is protected by the Federal Confidentiality of Alcohol and Drug Abuse Patient Records regulations: The Federal rules restrict any use of the information to criminally investigate or prosecute any alcohol or drug abuse patient.[facility] CenterIn the event this information is protected by the Federal Confidentiality of Alcohol and Drug Abuse Patient Records regulations: The Federal rules restrict any use of the information to criminally investigate or prosecute any alcohol or drug abuse patient.[facility] CenterIn the event this information is protected by the Federal Confidentiality of Alcohol and Drug Abuse Patient Records regulations: The Federal rules restrict any use of the information to criminally investigate or prosecute any alcohol or drug abuse patient.[facility] CenterIn the event this information is protected by the Federal Confidentiality of Alcohol and Drug Abuse Patient Records regulations: The Federal rules restrict any use of the information to criminally investigate or prosecute any alcohol or drug abuse patient.[facility] CenterIn the event this information is protected by the Federal Confidentiality of Alcohol and Drug Abuse Patient Records regulations: The Federal rules restrict any use of the information to criminally investigate or prosecute any alcohol or drug abuse patient.[facility] CenterIn the event this information is protected by the Federal Confidentiality of Alcohol and Drug Abuse Patient Records regulations: The Federal rules restrict any use of the information to criminally investigate or prosecute any alcohol or drug abuse patient.[facility] CenterIn the event this information is protected by the Federal Confidentiality of Alcohol and Drug Abuse Patient Records regulations: The Federal rules restrict any use of the information to criminally investigate or prosecute any alcohol or drug abuse patient.[facility] CenterIn the event this information is protected by the Federal Confidentiality of Alcohol and Drug Abuse Patient Records regulations: The Federal rules restrict any use of the information to criminally investigate or prosecute any alcohol or drug abuse patient.[facility] CenterIn the event this information is protected by the Federal Confidentiality of Alcohol and Drug Abuse Patient Records regulations: The Federal rules restrict any use of the information to criminally investigate or prosecute any alcohol or drug abuse patient.[facility] CenterIn the event this information is protected by the Federal Confidentiality of Alcohol and Drug Abuse Patient Records regulations: The Federal rules restrict any use of the information to criminally investigate or prosecute any alcohol or drug abuse patient.[facility] CenterIn the event this information is protected by the Federal Confidentiality of Alcohol and Drug Abuse Patient Records regulations: The Federal rules restrict any use of the information to criminally investigate or prosecute any alcohol or drug abuse patient.[facility] CenterIn the event this information is protected by the Federal Confidentiality of Alcohol and Drug Abuse Patient Records regulations: The Federal rules restrict any use of the information to criminally investigate or prosecute any alcohol or drug abuse patient.[facility] CenterIn the event this information is protected by the Federal Confidentiality of Alcohol and Drug Abuse Patient Records regulations: The Federal rules restrict any use of the information to criminally investigate or prosecute any alcohol or drug abuse patient.[facility] CenterIn the event this information is protected by the Federal Confidentiality of Alcohol and Drug Abuse Patient Records regulations: The Federal rules restrict any use of the information to criminally investigate or prosecute any alcohol or drug abuse patient.[facility] CenterIn the event this information is protected by the Federal Confidentiality of Alcohol and Drug Abuse Patient Records regulations: The Federal rules restrict any use of the information to criminally investigate or prosecute any alcohol or drug abuse patient.[facility] CenterIn the event this information is protected by the Federal Confidentiality of Alcohol and Drug Abuse Patient Records regulations: The Federal rules restrict any use of the information to criminally investigate or prosecute any alcohol or drug abuse patient.[facility] Reason for Visit (unrecogniz ed [...] Care Teams (unrecognized sec tion and content) Customer Service Operator Relationship Specialty Start Date End Date Devon Moreira, DO [address] [place] [address] PCP - General 05/27/00 Customer Service Operator Relationship Specialty Start Date End Date Devon Moreira, DO [address] [place] [address] PCP - General 05/27/00 Customer Service Operator Relationship Specialty Start Date End Date Devon Moreira, DO [address] [place] [address] PCP - General 05/27/00 Customer Service Operator Relationship Specialty Start Date End Date Devon Moreira, DO [address] [place] [address] PCP - General 05/27/00 Customer Service Operator Relationship Specialty Start Date End Date Devon Moreira, DO [address] [place] [address] PCP - General 05/27/00 Customer Service Operator Relationship Specialty Start Date End Date Devon Moreira, DO [address] [place] [address] PCP - General 05/27/00 Customer Service Operator Relationship Specialty Start Date End Date Devon Moreira, DO [address] [place] [address] PCP - General 05/27/00 Customer Service Operator Relationship Specialty Start Date End Date Devon Moreira, DO [address] [place] [address] PCP - General 05/27/00 Customer Service Operator Relationship Specialty Start Date End Date Devon Moreira, DO [address] [place] [address] PCP - General 05/27/00 Customer Service Operator Relationship Specialty Start Date End Date Devon Moreira, DO [address] [place] [address] PCP - General 05/27/00 Customer Service Operator Relationship Specialty Start Date End Date Devon Moreira, DO [address] [place] [address] PCP - General 05/27/00 Customer Service Operator Relationship Specialty Start Date End Date Devon Moreira, DO [address] [place] [address] PCP - General 05/27/00 Customer Service Operator Relationship Specialty Start Date End Date Devon Moreira, DO [address] [place] [address] PCP - General 05/27/00 Customer Service Operator Relationship Specialty Start Date End Date Devon Moreira, DO [address] [place] [address] PCP - General 05/27/00 Customer Service Operator Relationship Specialty Start Date End Date Devon Moreira, DO [address] [place] [address] PCP - General 05/27/00 Customer Service Operator Relationship Specialty Start Date End Date Devon Moreira, DO [address] [place] [address] PCP - General 05/27/00 Customer Service Operator Relationship Specialty Start Date End Date Devon Moreira, DO [address] [place] [address] PCP - General 05/27/00 Customer Service Operator Relationship Specialty Start Date End Date Devon Moreira, DO [address] [place] [address] PCP - General 05/27/00 Customer Service Operator Relationship Specialty Start Date End Date Devon Moreira DO [address] [place] [address] PCP - General 05/27/00 Team Status: Active Member Role Status Dates Devon Lillie Primary Care Provider Active Team Status: Inactive Member Role Status Dates Devon Moreira Primary Care Provider Active Sadia Aguilar APRN Attending Provider Active Customer Service Operator Relationship Specialty Start Date End Date Devon Moreira DO [address] [place] [address] PCP - General 05/27/00 Customer Service Operator Relationship Specialty Start Date End Date Devon Moreira DO [address] [place] [address] PCP - General 05/27/00 PRN Active and Recently Administ ered Medications (unrecognized section and content) Medication Order 01/10/2022 01/11/2022 01/12/2022 lidocaine (PF) 10 mg/mL (1 %) injection (XYLOCAINE) SUBCUTANEOUS, X (OR/PROCEDURE) PRN, Starting on Wed01/12/22 at 1032, Until Wed01/13/22 at 0303, Intraprocedure 1032 (Given - Provid er: Vani Hdz APRN.BOOKKEEPING MACHINE MECHANIC) Goals (unrecognized section and content) Goals may [...] BE BASED ON THE PRIMARY CLINICAL RECORDS. [employer] provides no warranty or guarantee of the accuracy or completeness of information in this document.
[2023-03-17 07:56] LABS: Basophils Percent Auto 0.3 % (0.2-2.0); Eosinophils Absolute Auto 0.2 10^3/uL (0.0-0.7); Eosinophils Percent Auto 2.6 % (0.9-7.0); Hematocrit 33.1 % (42.0-54.0); Hemoglobin 10.4 g/dL (14.0-18.0); Immature Granulocytes Abs Auto 0.03 10^3/uL (0.00-0.03); Immature Granulocytes Pct Auto 0.3 % (0.0-0.5); Lymphocytes Absolute Auto 2.1 10^3/uL (1.2-3.8); Lymphocytes Percent Auto 23.7 % (20.5-60.0); Mean Corpuscular HGB Conc 31.4 g/dL (29.9-35.2); Mean Corpuscular Hemoglobin 27.2 pg (25.9-34.0); Mean Corpuscular Volume 86.6 fL (80.0-94.0); Mean Platelet Volume 10.8 fL (9.5-13.5); Monocytes Absolute Auto 1.1 10^3/uL (0.3-0.8); Neutrophils Absolute Auto 5.5 10^3/uL (1.4-6.5); Neutrophils Percent Auto 61.1 % (43.0-75.0); Platelet Count 166 10^3/uL (150-450); Red Blood Count 3.82 10^6/uL (4.70-6.10); Red Cell Distribution Width 15.9 % (11.0-15.0)
[2023-03-17 08:04] LABS: INR 2.66; Prothrombin Time 26.7 sec (9.0-11.6)
[2023-03-17 08:27] LABS: Alanine Aminotransferase 16 U/L (16-63); Albumin Globulin Ratio 0.8; Albumin Level 2.6 g/dL (3.4-5.0); Alkaline Phosphatase 72 U/L (46-116); Anion Gap 7.9; Aspartate Amino Transferase 20 U/L (15-37); BUN Creatinine Ratio 28.4; Bilirubin Total 0.7 mg/dL (0.2-1.0); Calcium 8.2 mg/dL (8.5-10.1); Chloride 105 mmol/L (98-107); Estimated GFR (African America >60 (>=60); Estimated GFR (Non-African Ame 52 (>=60); Globulin 3.3 g/dL; Glucose 83 mg/dL (74-106); Magnesium 1.8 mg/dL (1.8-2.4); Phosphorus 4.4 mg/dL (2.6-4.7); Potassium 3.9 mmol/L (3.5-5.1); Sodium 140 mmol/L (136-145); Total Protein 5.9 g/dL (6.4-8.2)
[2023-03-19 17:10] LABS: Tacrolimus (FK506), Blood 8.4 ng/mL (2.0-20.0)
== END 2023-03-17 02:28 | disposition home or self-care (01) ==
LOC: LAB 02:27
PROVIDERS: PCP Internal Medicine; Visit Provider Internal Medicine
DX: Z51.81 Encounter for therapeutic drug level monitoring (principal); Z79.899 Other long term (current) drug therapy
CPT/HCPCS: 36415; 80053; 80197; 83735; 84100; 85025; 85610

== ENCOUNTER 2023-03-18 01:06 | Outpatient (RCR) | payer MEDICARE, OTHER, SELFPAY | END 2023-04-15 17:17 | disposition home or self-care (01) | LOC: MM 01:06 | PROVIDERS: PCP Internal Medicine; Visit Provider Internal Medicine | DX: Z51.81 Encounter for therapeutic drug level monitoring (principal); Z79.01 Long term (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 of anticoagulants; I82.409 Acute embolism and thrombosis of unspecified deep veins of unspecified lower extremity ==

== ENCOUNTER 2023-03-24 08:11 | Outpatient (REF) | payer MEDICARE, OTHER, SELFPAY ==
--- OUTSIDE RECORDS SUMMARY | 2023-03-22 02:09 | XMS_ITS | CCD ---
Author Name Unknown Address [address] [place] [address] Organization [facility] Care Team Providers Care Coremaker Bench Name Role Phone PROVIDER, UNKNOWN Attending Unavailable PROVIDER, UNKNOWN Admitting Unavailable Devon Moreira DO Primary Care Provider Lillie DO, Devon García Primary Care Provider Lillie DO, Devon García Primary Care Provider Lillie DO, Devon García Primary Care Provider Devon Moreira Unavailable NABEEL, DR PROSPER Douglas Attending Unavailable NABEEL, DR PROSPER Douglas Admitting Unavailable CASTANO ., DR BRANDI García Consulting Unavailable BALL, DR TAM Primary Care Unavailable CYN, DR TONYA Mnazo Consulting Unavailabl e ZITYE, DR CURRY Carmona Consulting Unavailable MATEOEREMathew, DR PROSPER Douglas Consulting Unavailable GRECHNY ., ALEJA TORRES Consulting Unavailabl e MARKER ., DR WASHINGTON Consulting Unavailable KANCHAN ., MARY ANN Consulting Unavailable KARTHIK POLANCO Consulting Unavailable ASHLEY GARIBAY Admitting Unavailable ASHLEY GARIBAY Attending Unavailable MARIAELENA, DR RICH Hernandez Consulting Unavailable LILLIE, DR TAM Primary Care Unavailable ASHLEY GARIBAY Consulting Unavailable LILLIE, DR TAM Primary Care Unavailable ZEV, BRANDI Attending Unavailable BROTHERS, BRANDI Admitting Unavailable BROTHERS, BRANDI Consulting Unavailable BALL, DR TAM Consulting Unavailable LILLIE, DR TAM Attending Unavailable BALL, DR TAM Admitting Unavailable BALL, DR TAM Primary Care Unavailable BALL, DR TAM Consulting Unavailable LILLIE, DR TAM Attending Unavailable BALL, DR TAM Admitting Unavailable BALL, DR ATM Primary Care Unavailable SHAIKH Kate MURRAY Attending Unavailable SHAIKH Kate MURRAY Admitting Unavailable LILLIE, DR TAM Primary Care Unavailable SHAIKH Kate MURRAY Attending Unavailable SHAIKH Kate MURRAY Admitting Unavailable BALL, DR TAM Primary Care Unavailable BALL, DR TAM Consulting Unavailable BALL, DR TAM Attending Unavailable BALL, DR TAM Admitting Unavailable BALL, DR TAM Primary Care Unavailable BALL, DR TAM Primary Care Unavailable BALL, DR TAM Consulting Unavailable BALL, DR TAM Admitting Unavailable BALL, DR TAM Attending Unavailable BALL, DR TAM Consulting Unavailable BALL, DR TAM Attending Unavailable BALL, DR TAM Admitting Unavailable BALL, DR TAM Primary Care Unavailable BALL, DR TAM Attending Unavailable BALL, DR TAM Consulting Unavailable BALL, DR TAM Admitting Unavailable BALL, DR TAM Primary Care Unavailable HOY ., DR CENTENO Attending Unavailable HOY ., DR CENTENO Admitting Unavailable HOY ., DR CENTENO Consulting Unavailable BALL, DR TAM Primary Care Unavailable BALL, DR TAM Attending Unavailable BALL, DR TAM Consulting Unavailable BALL, DR TAM Admitting Unavailable BALL, DR TAM Primary Care Unavailable BALL, DR TAM Attending Unavailable BALL, DR TAM Consulting Unavailable BALL, DR TAM Admitting Unavailable BALL, DR TAM Primary Care Unavailable BALL, DR TAM Attending Unavailable BALL, DR TAM Consulting Unavailable BALL, DR TAM Admitting Unavailable BALL, DR TAM Primary Care Unavailable BALL, DR TAM Primary Care Unavailable BALL, DR TAM Consulting Unavailable BALL, DR TAM Admitting Unavailable BALL, DR TAM Attending Unavailable BALL, DR TAM Consulting Unavailable BALL, DR TAM Attending Unavailable BALL, DR TAM Admitting Unavailable BALL, DR TAM Primary Care Unavailable FAGGIONATO, ARTUR Attending Unavailable FAGGIONATO, ARTUR Admitting Unavailable BALL, DR TAM Primary Care Unavailable FAGGIONATOARTUR Consulting Unavailable MISC, DR RYDER Admitting Unavailable MISC, DR RYDER Attending Unavailable BALL, DR TAM Primary Care Unavailable BALL, DR TAM Primary Care Unavailable BALL, DR TAM Consulting Unavailable BALL, DR TAM Admitting Unavailable BALL, DR TAM Attending Unavailable BALL, DR TAM Admitting Unavailable BALL, DR TAM Attending Unavailable BALL, DR TAM Primary Care Unavailable BALL, DR TAM Consulting Unavailable BALL, DR TAM Attending Unavailable BALL, DR TAM Admitting Unavailable BALL, DR TAM Primary Care Unavailable BALL, DR TAM Primary Care Unavailable BALL, DR TAM Consulting Unavailable BALL, DR TAM Admitting Unavailable BALL, DR TAM Attending Unavailable BALL, DR TAM Consulting Unavailable BALL, DR TAM Admitting Unavailable BALL, DR TAM Attending Unavailable BALL, DR TAM Primary Care Unavailable ZIEBER, DR CURRY Carmona Consulting Unavailable BALL, DR TAM Admitting Unavailable BALL, DR TAM Primary Care Unavailable BALL, DR TAM Consulting Unavailable BALL, DR TAM Attending Unavailable ZIEBER, DR CURRY Carmona Consulting Unavailable BALL, DR TAM Admitting Unavailable BALL, DR TAM Primary Care Unavailable BALL, DR TAM Consulting Unavailable BALL, DR TAM Attending Unavailable BALL, DR TAM Consulting Unavailable BALL, DR TAM Attending Unavailable BALL, DR TAM Admitting Unavailable BALL, DR TAM Primary Care Unavailable MISC, DR RYDER Admitting Unavailable MISC, DR RYDER Consulting Unavailable MISC, DR RYDER Attending Unavailable BALL, DR TAM Primary Care Unavailable BALL, DR TAM Consulting Unavailable BALL, DR TAM Attending Unavailable BALL, DR TAM Admitting Unavailable BALL, DR TAM Primary Care Unavailable BALL, DR TAM Consulting Unavailable BALL, DR TAM Attending Unavailable BALL, DR TAM Admitting Unavailable BALL, DR TAM Primary Care Unavailable BALL, DR TAM Attending Unavailable BALL, DR TAM Admitting Unavailable BALL, DR TAM Primary Care Unavailable FAWWAD, DIAMOND H Admitting Unavailable BALL, DR TAM Primary Care Unavailable FAWWAD, DIAMOND H Attending Unavailable FAWWAD, DIAMOND H Attending Unavailable FAWWAD, DIAMOND H Admitting Unavailable BALL, DR TAM Primary Care Unavailable FAWWAD, DIAMOND H Admitting Unavailable BALL, DR TAM Primary Care Unavailable FAWWAD, DIAMOND H Attending Unavailable FAWWAD, DIAMOND H Admitting Unavailable FAWWAD, DIAMOND H Attending Unavailable BALL, DR TAM Primary Care Unavailable FAWWAD, DIAMOND H Admitting Unavailable FAWWAD, DIAMOND H Attending Unavailable BALL, DR TAM Primary Care Unavailable BALL, DR TAM Consulting Unavailable BALL, DR TAM Attending Unavailable BALL, DR TAM Admitting Unavailable BALL, DR TAM Primary Care Unavailable BALL, DR TAM Primary Care Unavailable WILLIAM BROOKS Attending Unavailable WILLIAM BROOKS Admitting Unavailable WILLIAM BROOKS Consulting Unavailable RICH TITUS Consulting Unavailable FAWWAD, DIAMOND H Admitting Unavailable FAWWAD, DIAMOND H Attending Unavailable BALL, DR TAM Primary Care Unavailable NICOLÁS ., DR CENTENO Consulting Unavailable MARIAELENA, DR RICH Hernandez Consulting Unavailable KRISHNA, DR CURRY Carmona Consulting Unavailable ASHLEY GARIBAY Procedure Practitioner Unava ilable ASHLEY GARIBAY Consulting Unavailable NICOLÁS ., DR CENTENO Procedure Practitioner Unavail able MARCELINO CASTANO Consulting Unavailable NO FLORES Consulting Unavailable KANCHAN ., MARY ANN Consulting Unavailable WILLARDAMOLCYN Douglas Consulting Unavailable ALYSON ., PARAMJIT LUZ Consulting Unavailable BALL, CONSTANTIN Consulting Unavailable MORGOS, ANNALEE Consulting Unavailable JOAQUÍN, MISBAH Douglas Consulting Unavailable FAWWAD, DIAMOND H Attending Unavailable FAWWAD, DIAMOND H Admitting Unavailable BALL, DR TAM Primary Care Unavailable ZIEBER, DR CURRY Carmona Consulting Unavailable HIGHLANDER, ASHLEY Cortes Attending Unavailable HIGHLANDER, ASHLEY Cortes Admitting Unavailable BALL, DR TAM Primary Care Unavailable HIGHLANDER, ASHLEY Cortes Consulting Unavailable MISC, DR RYDER Admitting Unavailable MISC, DR RYDER Consulting Unavailable MISC, DR RYDER Attending Unavailable BALL, DR TAM Primary Care Unavailable BALL, DR TAM Consulting Unavailable BALL, DR TAM Attending Unavailable BALL, DR TAM Admitting Unavailable BALL, DR TAM Primary Care Unavailable BALL, DR TAM Consulting Unavailable BALL, DR TAM Attending Unavailable BALL, DR TAM Admitting Unavailable BALL, DR TAM Primary Care Unavailable FAWWAD, DIAMOND H Attending Unavailable FAWWAD, DIAMOND H Admitting Unavailable BALL, DR TAM Primary Care Unavailable HIGHLANDER, ASHLEY Cortes Attending Unavailable HIGHLANDER, ASHLEY Cortes Admitting Unavailable BALL, DR TAM Primary Care Unavailable BALL, DR TAM Attending Unavailable BALL, DR TAM Consulting Unavailable BALL, DR TAM Admitting Unavailable BALL, DR TAM Primary Care Unavailable BALL, DR TAM Primary Care Unavailable BALL, DR TAM Attending Unavailable BALL, DR TAM Admitting Unavailable DO Devon Moreira Primary Care Provider [phone] DAVID Aguilar Attending Provider Sadia Aguilar Attending Unavailable Sadia Aguilar Admitting Unavailable Devon Moreira Primary Care Unavailable SARTHAK PARNELL Attending Unavailable MILAGRO QUEEN Referring Unavailable MILAGRO QUEEN Referring Unavailable DEVON MOREIRA Referring Unavailable HINA PETERSON Attending Unavailable DEVON MOREIRA Primary Care Unavailable ARTUR CHEN Referring Unavailable DEVON MOREIRA Primary Care Unavailable Ni Cabrera DO Unavailable [phone] Devon Moreira MD Primary Care Provider NI CABRERA Attending Unavailable DEVON MOREIRA Referring Unavailable Allergies Allergy Classification Reported Allergen(s) Allergy Type Date of Onset Reaction(s) Facility (20 sources) Pyridostigmine; Translations: [PYRIDOSTIGMINE BROMIDE] Drug Allergy 2 GI Upset [facility] Work Phone: (1 source) ALLERGIES NOT ON FILE; Translations: [ALLERGIES NOT ON FILE] Propensity to adverse reactions (disorder) [facility] (1 source) Pyridostigmine Drug Allergy 2 Nausea Only [facility] Medications Current Medications Medication Drug Class(es) Dates Sig (Normalized) Sig (Original) acetaminophen 500 mg oral tablet (13 sources) take 2 tablets by mouth every six hours as needed for pain acetaminophen (Tylenol) 500 MG tablet Take 1,000 mg by mouth every 6 (six) hours if needed for mild pain. 0 Active take 1 tablet by mouth every six hours Acetaminophen 500 MG 1 tablet as needed Orally every 6 hrs Active take 1 tablet by debi th every eight hours as needed acetaminophen (TYLENOL EXTRA STRENGTH) 5 00 mg tablet Take 500 mg by mouth every 8 hours as needed. 0 Active Comment on above: Take 500 mg by mouth every 8 hours as needed. atorvastatin 40 mg oral tablet (20 sources) HMG-CoA Reductase Inhibitor Start: 2 take 1 tablet by mouth in the morning atorvastatin (Lipitor) 40 MG tablet Take 40 mg by mouth in the morning. 0 07/05/2022 Active Start: 10-01-2021 End: 10-31-2021 take 1 tablet [...] (EVUSHELD) (4 sources) Start: 12-06-19 End: 01-05-20 22 cilgavimab 300 mg intramuscular injection (EVUSHELD) Continuous Blood Gluc Sensor (FreeStyle Shaan 14 Day Sensor) misc (1 source) Start: 04-06-19 23 Continuous Blood Gluc Sensor (FreeStyle Shaan 14 Day Sensor) misc Inject 1 each under the skin every 14 (fourteen) days. 0 04/06/2022 Active famotidine 20 mg oral tablet (2 sources) Histamine-2 Receptor Antagonist Start: 06-25-19 take 1 tablet by mouth in the morning famotidine (Pepcid) 20 MG tablet Take 20 mg by mouth in the morning. 0 06/24/2022 Active FreeStyle Shaan 14 Day Sensor - (9 sources) Start: 04-06-19 Start: 04-06-2022 Start: 04-06-2022 FreeStyle Libr e 14 Day Sensor - Use to test home BS 6x daily in vitro 4-6x daily for 30 days Mar, Active Start: 04-06-2022 FreeStyle Libr e 14 Day Sensor - as directed Mar, Active FreeStyle Shaan 14 Day Sensor - Use to test home BS 6x daily transcutaneous 4-6x daily for 28 days Active glucagon (rdna) 1 mg injection (1 source) Antihypoglycemic Agent glucagon 1 MG injection 1 mg 0 Active insulin aspart, human (1 source) Insulin Analog Start: 01-24-20 inject 1 dose by subcutaneous injection three times daily at mealtime Insulin Aspart U-100 Active 100 sliding scale dose SUBCUT THREE TIMES DAILY WITH MEALS January 23, 2019 1:00am 3 ml insulin glargine 100 unt/ml pen injector (20 sources) Insulin Analog Start: 03-18-19 Lantus SoloStar 100 UNIT/ML pen Indications: 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) Inject 18 Units under the skin in the morning. 15 mL 3 03/18/2023 Active Start: 10-21-2022 End: 03-18-2023 Lantus SoloStar 100 UNIT/ML pen Indications: 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) Inject 20 Units under the skin in the morning. 3 mL 0 10/21/2022 03/18/2023 Discontinued (Dose adjustment) Start: 12-11-2021 insulin glargi ne (LANTUS SOLOSTAR, [...] injectable solution (20 sources) Insulin Analog Start: 04-09-2001 End: 03-18-2023 insulin lispro (HumaLOG) 100 unit/ml injection Indications: Type 1 diabetes mellitus with nephropathy ([facility]) 3 units breakfast, 5 units lunch, 8 units dinner plus correction 1:75 mg/dl (max daily 30 units) 10 mL 3 03/18/2023 Active HumaLOG 100 UNIT /ML as directed Injection Active inject 5 [IU] by sub cutaneous injection three times daily before mealtime, then inject 8 [IU] by subcutaneous injection before breakfast insulin lispro-aabc (LYUMJEV KWIKPEN U-1 00 INSULIN) 100 unit/mL insulin pen Inject subcutaneously [...] mg/dL: Give 10 units and notify provider [facility] [phone] MG (5 sources) take 155-852 tablets by mouth twice daily [facility] [phone] MG 1 tablet Orally twice daily Active take 155-852 tablets by mouth four times daily take 155-852 tablets by mouth four times daily [facility] 155-852-130 MG 1 tablet Orally Four times a day Active krill oil (7 sources) Krill Oil Not-Ta jn take 1 capsule by mo uth once daily in the evening krill oil 500 mg cap Take 500 mg by mout h every evening. 0 Active Comment on above: Take 500 mg by mouth every evening. latanoprost 0.05 mg/ml ophthalmic solution (19 sources) Prostaglandin Analog Start: 02-25-2022 latanoprost (Xalatan) 0.005 % ophthalmic solution Start: 01-23-2019 take 1 drop(s) into the [...] in both eyes jhonny ly at bedtime. Multivital (4 sources) Multivital Not-T aking oxyCODONE [...] MEQ PO Daily January 20, 2022 1:00am predniSONE 5 mg oral tablet (20 sources) Start: 03-06-2023 take 1 tablet by mouth in the morning predniSONE (Deltasone) 5 MG tablet Take 5 mg by mouth in the morning. 0 03/06/2023 Active Start: 01-23-2019 End: 07-15-2021 take 1 tablet by mouth once daily predniSONE (DELTASONE) 5 mg tablet TAKE 1 TABLET BY MOUTH EVERY DAY 90 tablet 3 07/15/2021 Active Comment on above: TAKE 1 TABLET BY DEBI TH EVERY DAY Probiotic (4 sources) Probiotic Not-Ta jn sulfamethoxazole 400 mg / trimethoprim 80 mg oral tablet (20 sources) Dihydrofolate Reductase Inhibitor Antibacterial, Sulfonamide Antimicrobial Start: 03-01-2023 sulfamethoxazole-trimethopri m (Bactrim) 400-80 MG tablet 3 (three) times a week 0 03/01/2023 Active Start: 01-23-2019 take 1 tablet by debi th three times weekly Sulfamethoxazole-Trimethoprim Active 1 T AB PO 3 Times a week January 23, 2019 1:00am Wed Start: 08-29-2012 take 1 tablet by debi th once sulfamethoxazole-trimethoprim (SEPTRA) 4 00-80 mg per tablet Take by mouth. Take one (1) tablet M-W-F 45 tablet 3 12/11/2021 Active take 1 tablet by debi th every twenty-four hours Comment on above: Take by mouth. Take one (1) tablet M-W-F tixagevimab 300 mg intramuscular injection (EVUSHELD) (4 sources) Start: 2 End: 2 tixagevimab 300 mg intramuscular injection (EVUSHELD) torsemide 20 mg oral tablet (20 sources) Loop Diuretic Start: 2 take 1 tablet by mouth in the morning torsemide (Demadex) 20 MG tablet Take 20 mg by mouth in the morning. 0 06/23/2022 Active Start: 12-13-2021 take 1 tablet by debi th every other day torsemide (DEMADEX) 20 mg tablet Take 1 tablet by mouth every other day. 0 12/13/2021 Active Torsemide 20 MG as directed Orally Active Comment on above: Take 1 tablet by debi th every other day. traMADol hydrochloride 50 mg oral tablet (20 sources) Opioid Agonist Start: 10-12-2022 take 1 tablet by mouth three times daily as needed for pain traMADol HCl 50 MG 1 tablet as needed Orally tid as needed for pain Sep, Active Start: 03-25-2022 take 1 tablet by debi th twice daily as needed traMADol (Ultram) 50 MG tablet Take 50 mg by mouth 2 (two) times a day as needed 0 03/25/2022 Active Start: 01-26-2019 End: 12-30-2021 Tramadol Discontinued [...] every 6 hours as needed for pain. warfarin sodium 4 mg oral tablet (20 sources) Vitamin K Antagonist Start: 07-03-2022 warfarin (Coumadin) 4 MG tablet 4mg T, TH, Sat, Sun 6mg M, W, Fr 0 07/03/2022 Active Start: 02-05-2022 warfarin (COUM RADAMES) 2 mg tablet Take 3 mg Wednesday, [...] Wednesday. Take 2 mg Wednesday, and Wednesday. Completed/Discontinued Medications Medication Drug Class(es) Dates Sig [...] wheezing/shortnes s of breath. 0 12/11/2021 Active ipratropium-albu terol (Duo-Neb) 0.5-2.5 mg/3 mL nebulizer solution Take by nebulization every 6 (six) hours if needed 0 Active Comment on above: Inhale 3 mL [...] topical cream (2 sources) Benzylamine Antifungal Start: 03-06-19 06 MENTAX 1 % TOPICAL CREAM as directed 0 03/06/2005 Active Comment on above: as directed clopidogrel 75 mg oral tablet (7 sources) P2Y12 Platelet Inhibitor Start: 01-24-20 End: 12-31-19 take 75 mg by mouth once daily Clopidogrel Discontinued 75 MG PO Daily January 23, 2019 1:00am December 30, 2021 2:19pm Comment on above: Take 75 mg by mouth once daily. diclofenac sodium 0.01 mg/mg topical gel (3 sources) Nonsteroidal Anti-inflammatory Drug diclofenac (VOLTAREN) 1 % topical gel Apply to affected area once daily as needed. 0 Active Comment on above: Apply to affected ar ea once daily as needed. docusate sodium 50 mg / sennosides, skilled nursing 8.6 mg oral tablet (20 sources) Start: 12-12-19 take 1 tablet by mouth twice daily senna-docusate (SENNA-S) 8.6-50 mg per tablet Take 1 tablet by mouth twice daily. 0 12/11/2021 Active take 1 tablet by debi th every twelve hours senna-docusate (Yasmin-Colace) 8.6-50 MG t ablet Take 1 tablet by mouth every 12 (twelve) hours 0 Active Comment on above: Take 1 tablet by debi th twice daily. Food Supplement, Lactose-Free (ENSURE MAX PROTEIN) liqd (17 sources) Start: 2 take 237 mL by mouth once daily at breakfast Food Supplement, Lactose-Free (ENSURE MAX PROTEIN) liqd Take 237 mL by mouth daily with breakfast. 7110 mL 0 12/11/2021 Active Comment on above: Take 237 mL by mouth daily with breakfast. furosemide 20 mg oral tablet (11 sources) Loop Diuretic Start: 9 End: 4 take 1 tablet by mouth in the morning furosemide (Lasix) 20 MG tablet Take 20 mg by mouth in the morning. 0 08/10/2021 03/18/2023 Discontinued (Therapy completed) Comment on above: Take 1 tablet by debi th once daily. sodium hypochlorite 2.5 mg/ml topical solution (7 sources) sodium hypochlor ite, Dakin's Half-Strength, (DAKIN'S SOLUTION) external solution Apply 0.5 mL to affected area every evening. 0 Active Comment on above: Apply 0.5 mL to affe cted area every evening. MULTIVITAMIN TABLET (5 sources) Start: 4 MULTIVITAMIN TABLET Take one(1) tablet daily. 0 [...] by mouth daily with lunch. Magic Cup [place] with lunch 7110 mL 0 12/11/2021 Active Comment on above: Take 237 mL by mouth daily with lunch. Magic Cup [place] with lunch polyethylene glycol 3350 83169 mg powder for oral solution (20 sources) [...] by ORAL/FEE DING TUBE route twice daily. simvastatin 40 mg oral tablet (4 sources) HMG-CoA Reductase Inhibitor Start: 10-29-19 End: 12-31-19 22 take 40 mg by mouth once daily Simvastatin Discontinued 40 MG PO Daily January 23, 2019 1:00am December 30, 2021 2:19pm Comment on above: TAKE 1 TABLET BY [facility] DAILY AT BEDTIME. tacrolimus 1 mg oral capsule (20 sources) Calcineurin Inhibitor Immunosuppressant Start: 09-24-19 End: 10-17-19 tacrolimus IR (PROGRAF) 1 mg capsule Take [...] End: 09-22-2022 take 1 capsule by mouth in the evening tacrolimus (Prograf) 1 MG capsule Take 1 mg by mouth. 2 capsules am 1 capsule pm 0 06/21/2022 Active Start: 09-25-2020 End: 09-30-2021 tacrolimus IR (PROGRAF) 1 mg capsule TAKE 1 CAPSULE BY MOUTH TWICE A DAY*Z94.0* 60 capsule 11 09/30/2021 Active Start: 01-23-2019 take 1 capsule by [facility] twice daily tacrolimus IR (PROGRAF) 1 mg capsule Take 1 capsule by mouth twice daily. 180 capsule 3 10/09/2021 Suspended Comment on above: TAKE 1 CAPSULE BY MO UT TWICE A DAY*Z94.0* Take 1 capsule by mo [facility] twice daily. Take 2 capsules by m out DAILY (6 AM). Take 1 capsule by mo ut DAILY AT 6 PM. TAKE 2 CAPSULES BY M OUTH DAILY AT 6AM*Z94.0* TAKE 2 CAPSULES IN M ORNING AND 1 CAPSULE IN THE EVENING TAKE 12 HOURS APART Take 2 caps in AM (2 mg total) and 1 cap in PM (1 mg) 12 hrs apart vit A/C/E ac/ZnOx/cupric oxide (EYE VITAMIN AND MINERALS ORAL) (5 sources) vit A/C/E ac/ZnO x/cupric oxide (EYE VITAMIN AND MINERALS ORAL) Take by mouth. 0 Suspended vit A/C/E ac/ZnO x/cupric oxide (EYE VITAMIN AND MINERALS ORAL) Take by mouth. 0 Active Comment on above: Take by mouth. Problems Active Problems Problem Classification Problem Date Documented Da te Episodic/Chronic Administrative/social admission (2 sources) Reduced mobility; Translations: [Other reduced mobility] 12-30-2021 Episodic Cardiac dysrhythmias (20 sources) Paroxysmal atrial fibrillation; Translations: [Paroxysmal atrial fibrillation] Onset: 1 09-30-2021 Chronic Chronic kidney disease (19 sources) Kidney transplant status; Translations: [End stage renal disease] Onset: 3 Chronic Chronic ulcer of skin (20 sources) Ulcer of lower extremity; Translations: [Non-pressure chronic ulcer of unspecified part of unspecified lower leg with unspecified severity] Onset: 3 06-11-2003 Chronic Conduction disorders (4 sources) Presence of cardiac pacemaker; Translations: [Encounter for adjustment and management of automatic implantable cardiac defibrillator] Onset: 3 Chronic Congestive heart failure; nonhypertensive (1 source) Heart failure, unspecified; Translations: [HEART FAILURE UNSPECIFIED] Onset: 2 Chronic Coronary atherosclerosis and other heart disease (20 sources) Coronary arteriosclerosis; Translations: [Atherosclerotic heart disease of [place] coronary artery without angina pectoris] Onset: 7 [...] Hypertensive disorder; Translations: [Essential (primary) hypertension] Onset: 2 09-30-2021 Chronic Hyperplasia of prostate (2 sources) Benign prostatic hyperplasia without lower urinary tract symptoms; Translations: [Benign prostatic hyperplasia] Onset: 4 10-08-2022 Chronic Hypertension with complications and secondary hypertension [...] 9 09-07-2008 Chronic Open wounds of extremities (14 sources) Amputated left lower limb above knee; Translations: [Complete traumatic amputation at level between left hip and knee, initial encounter] Onset: 3 Chronic Open wounds of extremities (13 sources) [...] current use of immunosuppressive drug; Translations: [Other terminal carman (current) drug therapy] Episodic Other aftercare (12 sources) Long-term current use of insulin; Translations: [terminal makeup operator (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 of insulin] Episodic Other aftercare (10 sources) terminal makeup operator (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 of insulin; Translations: [LONGTERM CURRENT USE OF INSULIN] Onset: 2 Episodic Other aftercare (5 sources) group home (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 of anticoagulants; Translations: [[employer] ATTENDANT CURRNT USE ANTICOAGULANTS] Onset: 3 Episodic Other [...] LEG ABOVE KNEE] Onset: 2 Chronic Other endocrine disorders (1 source) Adrenal cortical hypofunction; Translations: [Unspecified adrenocortical insufficiency] Onset: 3 10-08-2022 Chronic Other gastrointestinal disorders (1 source) Incontinence [...] Phantom limb syndrome with pain Chronic Other nervous system disorders (1 source) Autonomic neuropathy; Translations: [Disorder of the autonomic nervous system, unspecified] Onset: 3 10-08-2022 Chronic Other nutritional; endocrine; and metabolic disorders [...] 07-30-2006 Episodic Other aftercare (2 sources) Other residential (current) drug therapy; Translations: [OTH LONGTERM CURRENT DRUG THERAPY] Onset: 02-05-2022 Episodic Other aftercare (4 sources) Encounter for orthopedic aftercare following surgical amputation; Translations: [ENC ORTHOPED AFTERCARE FLW SURG AMP] Onset: 02-05-2022 Episodic Other aftercare (4 sources) group home (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 of antibiotics; Translations: [LONGTERM CURRENT USE ANTIBIOTICS] Onset: 12-20-2021 Episodic Other aftercare (1 source) group home (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 of aspirin; Translations: [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 ASPIRIN] Onset: 01-19-2022 Episodic Other circulatory disease (4 sources) Other specified symptoms and signs involving the circulatory and respiratory systems; Translations: [OTH SPEC SX SIGNS INVLV CIRC RS] Onset: 11-14-2021 Episodic Other circulatory disease (1 source) Chronic orthostatic hypotension; Translations: [Orthostatic hypotension] Onset: 03-23-2012 10-08-2022 Episodic Other circulatory disease (1 source) H/O: cardiovascular disease; Translations: [Personal history of other diseases of the circulatory system] Onset: 05-23-2013 10-08-2022 Episodic Other connective tissue disease (1 source) [...] Test Name Value Interpretation Reference Range Facility HbA1c (Bld) [Mass fraction]o n 03-18-2023 Interpretation and review of laboratory results Normal [facility] POCT glycosylated hemoglobin (Hb A1C) docked deviceon 03-18-2023 HbA1c (Bld) [Mass fraction] 7.8 % [facility] Sonya 12-25-2022 DIAMANTEN Telephone (TXCTGL) ALEX ALMONTE ([id number]) 1945 M Date Time Provider Department 12/25/22 KIDNEY TXP COORDINATORS TXCTGL During your visit today, we recorded the following information about you: Duane Ryan 12/25/2022 10:41 AM Signed Labs 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 Administrative [employer] Allergies As of Date: 12/25/2022 Noted Allergy [...] by mouth daily with lunch. 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 insulin glargine (LANTUS SOLOSTAR, BASAGLAR TEGANIKPEN) 100 unit/mL (3 mL) Inject 17 Units [...] by mouth daily with lunch. Magic Cup [place] with lunch aspirin, enteric coated (ASPIRIN, ENTERIC [...] in am? thanks! RF Pts RN at [facility] reports pts sister picks up Rx from [...] Apply 0. (more content not included)... Normal [facility] Office Visiton 09-09-2022 Follow-up visit [id number] Alex Almonte 1945 M Date Provider Department Center 09/09/2022 1596-SARTHAK PARNELL [facility] Family History Problem Relation Age of Onset Cancer Mother Aneurysm Father Cancer Father Parkinsonism Father Family Status - Relation Status Age at Mother Father Level of Service:[id number] [place] OFFICE/OUTPATIENT ESTABLISHED MOD MDM 30-39 MIN Normal [facility] Glucose Poct Glucometerson 0 07-20-2022 Commemt1 Glu2: Cleaned Meter Normal [facility] Comment on above: Result Comment: PERF ORMED BY: [facility] [address] [place] [address] PATHOLOGIST HOME BASED ASSISTANT JOSE F ELLIOTT M.D. Performed By: #### G LURICO #### Point of Care testing , Glucose [Mass/Vol] 176 mg/dL Normal [facility] Comment on above: Result Comment: [place] Glucose Reference Range is dependent on time and content of last meal. Glucose of more than 200 mg/dL in a nonstressed, ambulatory subject supports the diagnosis of Diabetes Mellitus. Performed By: #### G MADY #### Point of Care testing , FK506 (TACROLIMUS) WHOLE BLO ODon 07-12-2022 Tacrolimus (FK506), Blood 10.9 ng/mL Normal 2.0-20.0 [facility] Comment on above: Result Comment: Trou gh (immediately following transplant) 15.0 . Trough (steady state, 2 weeks or more after transplant): 3.0 - 8.0 . Performed by LC-MS/MS technology. Performed By: #### F K506T ####[facility] [address] [place], [place] [address]Dr. Farhat Leal CBC AUTO DIFFon 07-10-2022 BASO # 0.0 103/ul Normal 0.0-0.1 [facility] Comment on above: Performed By: #### C BC ####[facility] [address]km[address]ys[address] [place], [place] [address]Dr. Farhat Leal Basophils/100 WBC (Bld) 0.5 % Normal 0.2-2.0 [facility] Comment on above: Performed By: #### C BC ####[facility] [address] [place], [place] [address]Dr. Farhat Leal EO # 0.3 103/ul Normal 0.0-0.7 [facility] Comment on above: Performed By: #### C BC ####[facility] [address]vf[address] [place], [place] [address]Dr. Farhat Leal Eosinophils/100 WBC (Bld) 4.9 % Normal 0.9-7.0 [facility] Comment on above: Performed By: #### C BC ####[facility] I[address]wojlt[address] [place], [place] [address]Dr. Farhat Leal Erythrocyte distribution width (RBC) [Ratio] 13.8 % Normal 11.0-15.0 [facility] Comment on above: Performed By: #### C BC ####[facility] [address]jg[address] [place], [place] [address]Dr. Farhat Leal Hematocrit (Bld) [Volume fraction] 36.6 % Critically low 42.0-54.0 [facility] Comment on above: Performed By: #### C BC ####[facility] [address] [place] [id number]. Farhat Leal Hemoglobin (Bld) [Mass/Vol] 12.2 g/dL Critically low 14.0-18.0 [facility] Comment on above: Performed By: #### C BC ####[facility] [address] [place] [id number]. Farhat Leal IG # 0.01 10e3/ul Normal 0.00-0.03 [facility] Comment on above: Performed By: #### C BC ####[facility] X[address]ihls[address] [place], [place] [address]Dr. Farhat Leal IG % 0.2 % Normal 0.0-0.5 [facility] Comment on above: Performed By: #### C BC ####[facility] Nigwaizavm[address] [place], [place] [address]Dr. Farhat Leal LYMPH # 2.2 103/ul Normal 1.2-3.8 [facility] Comment on above: Performed By: #### C BC ####[facility] [address] [place], [place] [address]Dr. Farhat Leal Lymphocytes/100 WBC (Bld) 33.9 % Normal 20.5-60.0 [facility] Comment on above: Performed By: #### C BC ####[facility] Rstsxqfazi[address] [place], [place] [address]Dr. Farhat Leal MANUAL DIFF REQ NO Normal [facility] Comment on above: Performed By: #### C BC ####[facility] C[address]peiglyw[address] [place], [place] [address]Dr. Farhat Leal MCH (RBC) [Entitic mass] 31.0 pg Normal 25.9-34.0 [facility] Comment on above: Performed By: #### C BC ####[facility] K[address] [place], [place] [address]Dr. Farhat Leal MCHC (RBC) [Mass/Vol] 33.3 g/dL Normal 29.9-35.2 [facility] Comment on above: Performed By: #### C BC ####[facility] [address] [place] [phone]. Farhat Leal MCV (RBC) [Entitic vol] 93.1 fL Normal 80.0-94.0 [facility] Comment on above: Performed By: #### C BC ####[facility] [address] [place] [id number]. Farhat Leal MONO # 0.7 103/ul Normal 0.3-0.8 [facility] Comment on above: Performed By: #### C BC ####[facility] M[address]rxfsn[address] [place] [phone]. Farhat Leal Monocytes/100 WBC (Bld) 10.8 % Normal 1.7-12.0 [facility] Comment on above: Performed By: #### C BC ####[facility] [address] [place] [phone]. Farhat Leal NEUT # 3.2 103/ul Normal 1.4-6.5 [facility] Comment on above: Performed By: #### C BC ####[facility] [address]xqupv[address] [place] [phone]. Farhat Leal Neutrophils/100 WBC (Bld) 49.7 % Normal 43.0-75.0 [facility] Comment on above: Performed By: #### C BC ####[facility] [address] [place] [phone]. Farhat Leal Platelet mean volume (Bld) [Entitic vol] 10.9 fL Normal 9.5-13.5 [facility] Comment on above: Performed By: #### C BC ####[facility] [address]ch[address] [place] [phone]. Farhat Leal PLT 195 103/ul Normal 150-450 [facility] Comment on above: Performed By: #### C BC ####[facility] Tecpc[address]trqv[address] [place] [phone]. Farhat Leal RBC 3.93 106/ul Critically low 4.70-6.[address] [facility] Comment on above: Performed By: #### C BC ####[facility] J[address]ug[address] [place] [phone]. Farhat Leal WBC 6.4 103/ul Normal 4.0-11.0 [facility] Comment on above: Performed By: #### C BC ####[facility] [address] [place] [address]Dr. Farhat Leal MAGNESIUMon 07-10-2022 Magnesium [Mass/Vol] 1.9 mg/dL Normal 1.8-2.4 [facility] Comment on above: Performed By: #### M G, PHOS ####[facility] [address] [place] [address]Dr. Farhat Leal PHOSPHORUSon 07-10-2022 Phosphate [Mass/Vol] 4.7 mg/dL Normal 2.6-4.7 [facility] Comment on above: Performed By: #### M Anais PHOS ####[facility] Se[address]rxtf[address] [place], [place] [address]Dr. Farhat Leal PROF 14(COMP METB)on 023 Albumin [Mass/Vol] 2.7 g/dL Critically low 3.4-5.0 [facility] Comment on above: Performed By: #### C MP ####[facility] Syf[address]wwezu[address] [place], [place] [address]Dr. Farhat Leal Albumin/Globulin [Mass ratio] 0.8 {ratio} Normal [facility] Comment on above: Performed By: #### C MP ####[facility] [address] [place] [address]Dr. Farhat Leal ALP [Catalytic activity/Vol] 59 U/L Normal 46-116 [facility] Comment on above: Performed By: #### C MP ####[facility] [address]ipvz[address] [place] [address]Dr. Farhat Leal ALT [Catalytic activity/Vol] 16 U/L Normal 16-63 [facility] Comment on above: Performed By: #### C MP ####[facility] Dhxhszmaem[address] [place] [address]Dr. Farhat Leal Anion gap [Moles/Vol] 12.3 mmol/L Normal [facility] Comment on above: Performed By: #### C MP ####[facility] Ak[address]ui[address] [place] [phone]. Farhat Leal AST [Catalytic activity/Vol] 17 U/L Normal 15-37 [facility] Comment on above: Performed By: #### C MP ####[facility] Lewwcaivpv9[address] [place] [phone]. Farhat Leal Bilirubin [Mass/Vol] 0.5 mg/dL Normal 0.2-1.0 [facility] Comment on above: Performed By: #### C MP ####[facility] M[address]vclcgti4[address] [place] [phone]. Farhat Leal Calcium [Mass/Vol] 8.5 mg/dL Normal 8.5-10.1 [facility] Comment on above: Performed By: #### C MP ####[facility] [address] [place], [place] [address]Dr. Farhat Leal Chloride [Moles/Vol] 104 mmol/L Normal 98-107 [facility] Comment on above: Performed By: #### C MP ####[facility] Ndmy[address]uqq[address] [place] [phone]. Farhat Leal CO2 [Moles/Vol] 27.6 mmol/L Normal 21.0-32.0 [facility] Comment on above: Performed By: #### C MP ####[facility] Ntjyyezyif[address] [place] [phone]. Farhat Leal Creatinine [Mass/Vol] 1.79 mg/dL Critically high 0.70-1.30 [facility] Comment on above: Performed By: #### C MP ####[facility] P[address]vqcwjh[address] [place] [phone]. Farhat Elvis EGFR-AF ERITREAN 45 mL/min/1.73m2 Critically low >=60 [facility] Comment on above: Performed By: #### C MP ####[facility] Syt[address]ijnetw[address] [place] [phone]. Farhat Elvis EGFR-NON AF ERITREAN 37 mL/min/1.73m2 Critically low >=60 [facility] Comment on above: Performed By: #### C MP ####[facility] F[address]az[address] [place] [address]Dr. Farhat Leal Globulin (S) [Mass/Vol] 3.2 g/dL Normal [facility] Comment on above: Performed By: #### C MP ####[facility] Oxhvgomczj73[address] [place] [phone]. Farhat Leal Glucose [Mass/Vol] 203 mg/dL Critically high 74-106 [facility] Comment on above: Performed By: #### C MP ####[facility] Cob[address]qenuk[address] [place] [address]Dr. Farhat Leal Potassium [Moles/Vol] 3.9 mmol/L Normal 3.5-5.1 [facility] Comment on above: Performed By: #### C MP ####[facility] P[address]xlcryu[address] [place] [address]Dr. Farhat Leal Protein [Mass/Vol] 5.9 g/dL Critically low 6.4-8.2 [facility] Comment on above: Performed By: #### C MP ####[facility] Gzwqouxfcz[address] [place] [address]Dr. Farhat Leal Sodium [Moles/Vol] 140 mmol/L Normal 136-145 [facility] Comment on above: Performed By: #### C MP ####[facility] Ecjceaknxn[address] [place] [address]Dr. Farhat Leal Urea nitrogen [Mass/Vol] 61.0 mg/dL Critically high 7.0-18.0 [facility] Comment on above: Performed By: #### C MP ####[facility] Znvxixrykd6306 [place] [address]Dr. Farhat Leal Urea nitrogen/Creatinine [Mass ratio] 34.1 mg/mg Normal [facility] Comment on above: Performed By: #### C MP ####[facility] Qltrbuhmjx6418 [place] [phone]. Farhat Elvis PROTIMEon 07-10-2022 INR Coag (PPP) [Relative time] 2.95 {INR} Normal [facility] Comment on above: Performed By: #### P T ####[facility] Os[address]cwgdsx[address] [place] [address]Dr. Farhat Leal INR GUIDELINES SEE BELOW Normal [facility] Comment on above: Result Comment: MALINA RED INR: 2.0 - 3.0 CONDITIONS NOT LISTED BELOW 2.5 - 3.5 FOR PROSTHETIC HEART VALVE REPLACEMENT 2.5 - 3.5 RECURRENT THROMBOSIS Performed By: #### P T ####[facility] [address] [place], [place] [address]Dr. Farhat Leal PT Coag (PPP) [Time] 29.4 s Critically high 9.0-11.6 [facility] Comment on above: Performed By: #### P T ####[facility] X[address]htnddzav[address] [place], [place] [address]Dr. Farhat Leal FK506 (TACROLIMUS) WHOLE BLO ODon 07-07-2022 Tacrolimus (FK506), Blood 8.3 ng/mL Normal 2.0-20.0 [facility] Comment on above: Result Comment: Trou gh (immediately following transplant) 15.0 . Trough (steady state, 2 weeks or more after transplant): 3.0 - 8.0 . Performed by LC-MS/MS technology. Performed By: #### F K506T ####[facility] Z[address]fxgafu[address] [place], [place] [address]Dr. Farhat Leal CBC AUTO DIFFon 07-03-2022 BASO # 0.0 103/ul Normal 0.0-0.1 [facility] Comment on above: Performed By: #### C BC ####[facility] Wijbxxsgld[address] [place], [place] [address]Dr. Farhat Leal Basophils/100 WBC (Bld) 0.6 % Normal 0.2-2.0 [facility] Comment on above: Performed By: #### C BC ####[facility] Qzyimoxkab[address] [place], [place] [address]Dr. Farhat Leal EO # 0.3 103/ul Normal 0.0-0.7 [facility] Comment on above: Performed By: #### C BC ####[facility] Yqizbfhhvx0419 [place] [phone]. Farhat Leal Eosinophils/100 WBC (Bld) 4.1 % Normal 0.9-7.0 [facility] Comment on above: Performed By: #### C BC ####[facility] Dorkjkhszh4953 [place] [phone]. Farhat Leal Erythrocyte distribution width (RBC) [Ratio] 14.0 % Normal 11.0-15.0 [facility] Comment on above: Performed By: #### C BC ####[facility] Iz[address]xrbsjdi[address] [place], [place] [address]Dr. Farhat Leal Hematocrit (Bld) [Volume fraction] 35.9 % Critically low 42.0-54.0 [facility] Comment on above: Performed By: #### C BC ####[facility] [address]vwkdkkx[address] [place], [place] [address]Dr. Farhat Leal Hemoglobin (Bld) [Mass/Vol] 12.0 g/dL Critically low 14.0-18.0 [facility] Comment on above: Performed By: #### C BC ####[facility] Tw[address]qqlakl[address] [place], [place] [address]Dr. Farhat Leal IG # 0.04 10e3/ul Critically high 0.00-0.03 [facility] Comment on above: Performed By: #### C BC ####[facility] Eyszjpjdon[address] [place], [place] [address]Dr. Farhat Leal IG % 0.6 % Critically high 0.0-0.[address] [facility] Comment on above: Performed By: #### C BC ####[facility] X[address]ktjafsk[address] [place], [place] [address]Dr. Farhat Leal LYMPH # 1.5 103/ul Normal 1.2-3.8 [facility] Comment on above: Performed By: #### C BC ####[facility] Burzohektn[address] [place], [place] [address]Dr. Farhat Leal Lymphocytes/100 WBC (Bld) 21.5 % Normal 20.5-60.0 [facility] Comment on above: Performed By: #### C BC ####[facility] Ggmiuwsydx1341 [place] [phone]. Farhat Leal MANUAL DIFF REQ NO Normal [facility] Comment on above: Performed By: #### C BC ####[facility] Zzeknbkxtn8094 [place] [phone]. Farhat Leal MCH (RBC) [Entitic mass] 30.8 pg Normal 25.9-34.0 [facility] Comment on above: Performed By: #### C BC ####[facility] Nqdxlsqrll8246 [place] [phone]. Farhat Leal MCHC (RBC) [Mass/Vol] 33.4 g/dL Normal 29.9-35.2 [facility] Comment on above: Performed By: #### C BC ####[facility] [address]izjff[address] [place], [place] [address]Dr. Farhat Leal MCV (RBC) [Entitic vol] 92.1 fL Normal 80.0-94.0 [facility] Comment on above: Performed By: #### C BC ####[facility] [address] [place], [place] [id number]. Farhat Leal MONO # 0.6 103/ul Normal 0.3-0.8 [facility] Comment on above: Performed By: #### C BC ####[facility] [address]qoungwwfe[address] [place], [place] [address]Dr. Farhat Leal Monocytes/100 WBC (Bld) 8.7 % Normal 1.7-12.0 [facility] Comment on above: Performed By: #### C BC ####[facility] [address]erqmugrda[address] [place], [place] [address]Dr. Farhat Leal NEUT # 4.4 103/ul Normal 1.4-6.5 [facility] Comment on above: Performed By: #### C BC ####[facility] Omn[address]we[address] [place], [place] [address]Dr. Farhat Leal Neutrophils/100 WBC (Bld) 64.5 % Normal 43.0-75.0 [facility] Comment on above: Performed By: #### C BC ####[facility] Xgzsfbepcj[address] [place] [address]Dr. Farhat Leal Platelet mean volume (Bld) [Entitic vol] 10.1 fL Normal 9.5-13.5 [facility] Comment on above: Performed By: #### C BC ####[facility] Oyouv[address]jja[address] [place] [address]Dr. Farhat Leal PLT 177 103/ul Normal 150-450 [facility] Comment on above: Performed By: #### C BC ####[facility] Ordwjrqtvu9069 [place] [address]Dr. Farhat Leal RBC 3.90 106/ul Critically low 4.70-6.10 [facility] Comment on above: Performed By: #### C BC ####[facility] Zmythceoau[address] [place] [address]Dr. Farhat Leal WBC 6.8 103/ul Normal 4.0-11.0 [facility] Comment on above: Performed By: #### C BC ####[facility] Tfemuaipul[address] [place] [address]Dr. Farhat Leal PROF 14(COMP METB)on 023 Albumin [Mass/Vol] 2.8 g/dL Critically low 3.4-5.0 Th [facility] Comment on above: Performed By: #### C MP ####[facility] Fdseooysym475[address] [place] [address]Dr. Farhat Leal Albumin/Globulin [Mass ratio] 0.8 {ratio} Normal [facility] Comment on above: Performed By: #### C MP ####[facility] Atxdrrnfni[address] [place] [address]Dr. Farhat Lela ALP [Catalytic activity/Vol] 68 U/L Normal 46-116 [facility] Comment on above: Performed By: #### C MP ####[facility] Qxooxswaqr58[address] [place] [address]Dr. Farhat Leal ALT [Catalytic activity/Vol] 20 U/L Normal 16-63 [facility] Comment on above: Performed By: #### C MP ####[facility] Ihuzznzvqc8328 [place] [phone]. Farhat Leal Anion gap [Moles/Vol] 11.1 mmol/L Normal [facility] Comment on above: Performed By: #### C MP ####[facility] Kzseetabcz30[address] [place] [phone]. Farhat Leal AST [Catalytic activity/Vol] 22 U/L Normal 15-37 [facility] Comment on above: Performed By: #### C MP ####[facility] [address]qqdnugj[address] [place], [place] [address]Dr. Farhat Leal Bilirubin [Mass/Vol] 0.4 mg/dL Normal 0.2-1.0 [facility] Comment on above: Performed By: #### C MP ####[facility] [address]hiuufs[address] [place], [place] [address]Dr. Farhat Leal Calcium [Mass/Vol] 8.5 mg/dL Normal 8.5-10.1 [facility] Comment on above: Performed By: #### C MP ####[facility] [address]xwctffzw[address] [place], [place] [address]Dr. Farhat Leal Chloride [Moles/Vol] 106 mmol/L Normal 98-107 [facility] Comment on above: Performed By: #### C MP ####[facility] [address]pfotootqx[address] [place], [place] [address]Dr. Farhat Leal CO2 [Moles/Vol] 29.1 mmol/L Normal 21.0-32.0 [facility] Comment on above: Performed By: #### C MP ####[facility] [facility] Dduuoqscuw[address] [place], [place] [address]Dr. Farhat Leal Creatinine [Mass/Vol] 1.70 mg/dL Critically high 0.70-1.30 [facility] Comment on above: Performed By: #### C MP ####[facility] Xxnmufdfqc[address] [place], [place] [address]Dr. Farhat Leal EGFR-AF ERITREAN 48 mL/min/1.73m2 Critically low >=60 [facility] Comment on above: Performed By: #### C MP ####[facility] [address] [place] [address]Dr. Farhat Leal EGFR-NON AF ERITREAN 39 mL/min/1.73m2 Critically low >=60 [facility] Comment on above: Performed By: #### C MP ####[facility] Uiindfqfgn[address] [place] [address]Dr. Farhat Leal Globulin (S) [Mass/Vol] 3.6 g/dL Normal [facility] Comment on above: Performed By: #### C MP ####[facility] Gnogdltsyw9[address] [place] [address]Dr. Farhat Leal Glucose [Mass/Vol] 312 mg/dL Critically high 74-106 [facility] Comment on above: Performed By: #### C MP ####[facility] Bsxllbeprr18[address] [place] [address]Dr. Farhat Leal Potassium [Moles/Vol] 4.2 mmol/L Normal 3.5-5.1 [facility] Comment on above: Performed By: #### C MP ####[facility] Nvajfhltmh375[address] [place], [place] [address]Dr. Farhat Leal Protein [Mass/Vol] 6.4 g/dL Normal 6.4-8.2 [facility] Comment on above: Performed By: #### C MP ####[facility] Gterniimpx0867[address] [place], [place] [address]Dr. Farhat Leal Sodium [Moles/Vol] 142 mmol/L Normal 136-145 [facility] Comment on above: Performed By: #### C MP ####[facility] Fegdbdjsqz30[address] [place], [place] [address]Dr. Farhat Leal Urea nitrogen [Mass/Vol] 49.0 mg/dL Critically high 7.0-18.0 [facility] Comment on above: Performed By: #### C MP ####[facility] Nnsalymygw[address] [place], [place] [address]Dr. Farhat Leal Urea nitrogen/Creatinine [Mass ratio] 28.8 mg/mg Normal [facility] Comment on above: Performed By: #### C MP ####[facility] Kzfyrpmsbk[address] [place], [place] [address]Dr. Farhat Leal PROTIMEon 07-03-2022 INR Coag (PPP) [Relative time] 2.23 {INR} Normal [facility] Comment on above: Performed By: #### P T ####[facility] Svuuylpvzo23[address] [place], [place] [address]Dr. Farhat Leal INR GUIDELINES SEE BELOW Normal [facility] Comment on above: Result Comment: MALINA RED INR: 2.0 - 3.0 CONDITIONS NOT LISTED BELOW 2.5 - 3.5 FOR PROSTHETIC HEART VALVE REPLACEMENT 2.5 - 3.5 RECURRENT THROMBOSIS Performed By: #### P T ####[facility] Nkcberksgr18[address] [place], [place] [address]Dr. Farhat Leal PT Coag (PPP) [Time] 22.6 s Critically high 9.0-11.6 [facility] Comment on above: Performed By: #### P T ####[facility] Xggscctwot5632[address] [place], [place] [address]Dr. Farhat Leal FK506 (TACROLIMUS) WHOLE BLO ODon 06-29-2022 Tacrolimus (FK506), Blood 12.2 ng/mL Normal 2.0-20.0 [facility] Comment on above: Result Comment: Trou gh (immediately following transplant) 15.0 . Trough (steady state, 2 weeks or more after transplant): 3.0 - 8.0 . Performed by LC-MS/MS technology. Performed By: #### F K506T ####[facility] Cuitjfslyi[address] [place], [place] [address]Dr. Farhat Leal CBC AUTO DIFFon 06-26-2022 BASO # 0.0 103/ul Normal 0.0-0.1 [facility] Comment on above: Performed By: #### C BC ####[facility] Vykbysbvno1433[address] [place], [place] [address]Dr. Farhat Leal Basophils/100 WBC (Bld) 0.5 % Normal 0.2-2.0 [facility] Comment on above: Performed By: #### C BC ####[facility] Ooybtvjatp[address] [place] [address]Dr. Farhat Leal EO # 0.3 103/ul Normal 0.0-0.7 [facility] Comment on above: Performed By: #### C BC ####[facility] Dxsawgcose[address] [place] [address]Dr. Farhat Leal Eosinophils/100 WBC (Bld) 4.3 % Normal 0.9-7.0 [facility] Comment on above: Performed By: #### C BC ####[facility] Dqdzjbjjsx2635[address] [place], [place] [address]Dr. Farhat Leal Erythrocyte distribution width (RBC) [Ratio] 14.1 % Normal 11.0-15.0 [facility] Comment on above: Performed By: #### C BC ####[facility] Wdewcccnmc69[address] [place], [place] [address]Dr. Farhat Leal Hematocrit (Bld) [Volume fraction] 35.4 % Critically low 42.0-54.0 [facility] Comment on above: Performed By: #### C BC ####[facility] Sijqltdyqg4[address] [place], [place] [address]Dr. Farhat Leal Hemoglobin (Bld) [Mass/Vol] 11.8 g/dL Critically low 14.0-18.0 [facility] Comment on above: Performed By: #### C BC ####[facility] Oqndqvzjrd5[address] [place], [place] [address]Dr. Farhat Leal IG # 0.02 10e3/ul Normal 0.00-0.03 [facility] Comment on above: Performed By: #### C BC ####[facility] Nseqyuzhwy[address] [place] [address]Dr. Farhat Leal IG % 0.3 % Normal 0.0-0.5 [facility] Comment on above: Performed By: #### C BC ####[facility] Osyszkhfcp27[address] [place], [place] [address]Dr. Farhat Leal LYMPH # 2.4 103/ul Normal 1.2-3.8 [facility] Comment on above: Performed By: #### C BC ####[facility] Ihlhylmzfm69[address] [place] [phone]. Farhat Elvis Lymphocytes/100 WBC (Bld) 40.4 % Normal 20.5-60.0 [facility] Comment on above: Performed By: #### C BC ####[facility] Vewvusnrve[address] [place] [id number]. Farhat Elvis MANUAL DIFF REQ NO Normal [facility] Comment on above: Performed By: #### C BC ####[facility] Fevlimikug9299 [place] [phone]. Farhat Elvis MCH (RBC) [Entitic mass] 31.0 pg Normal 25.9-34.0 [facility] Comment on above: Performed By: #### C BC ####[facility] Zwqozbykmm9098 [place] [address]Dr. Farhat Elvis MCHC (RBC) [Mass/Vol] 33.3 g/dL Normal 29.9-35.2 [facility] Comment on above: Performed By: #### C BC ####[facility] Szszgasyxn33[address] [place] [address]Dr. Madelynlorri Leal MCV (RBC) [Entitic vol] 92.9 fL Normal 80.0-94.0 [facility] Comment on above: Performed By: #### C BC ####[facility] Durhufnmmg64[address] [place] [address]Dr. Farhat Leal MONO # 0.7 103/ul Normal 0.3-0.8 [facility] Comment on above: Performed By: #### C BC ####[facility] Nclhdrjroh8257 [place] [address]Dr. Madelynlorri Leal Monocytes/100 WBC (Bld) 11.1 % Normal 1.7-12.0 [facility] Comment on above: Performed By: #### C BC ####[facility] Azgekoplfl94[address] [place], [place] [address]Dr. Farhat Leal NEUT # 2.6 103/ul Normal 1.4-6.5 [facility] Comment on above: Performed By: #### C BC ####[facility] Anfhighvfh2[address] [place] [address]Dr. Farhat Leal Neutrophils/100 WBC (Bld) 43.4 % Normal 43.0-75.0 [facility] Comment on above: Performed By: #### C BC ####[facility] Sdasxerklf3135 [place] [address]Dr. Farhat Leal Platelet mean volume (Bld) [Entitic vol] 10.4 fL Normal 9.5-13.5 [facility] Comment on above: Performed By: #### C BC ####[facility] Fbnradzyiv4764 [place] [phone]. Farhat Leal PLT 211 103/ul Normal 150-450 [facility] Comment on above: Performed By: #### C BC ####[facility] Yifugsghup[address] [place] [address]Dr. Farhat Leal RBC 3.81 106/ul Critically low 4.70-6.[address] [facility] Comment on above: Performed By: #### C BC ####[facility] Zlosvjtssr5377 [place] [address]Dr. Madelynlorri Leal WBC 6.0 103/ul Normal 4.0-11.0 [facility] Comment on above: Performed By: #### C BC ####[facility] Tdchyplvfm[address] [place], [place] [address]Dr. Farhat Leal PROF 14(COMP METB)on 023 Albumin [Mass/Vol] 2.6 g/dL Critically low 3.4-5.0 [facility] Comment on above: Performed By: #### C MP ####[facility] Cwlsbffwiq5991 [place] [phone]. Farhat Leal Albumin/Globulin [Mass ratio] 0.8 {ratio} Normal [facility] Comment on above: Performed By: #### C MP ####[facility] Mwnzihwely7[address] [place] [address]Dr. Farhat Elvis ALP [Catalytic activity/Vol] 64 U/L Normal 46-116 [facility] Comment on above: Performed By: #### C MP ####[facility] Nedsmljtsd6595 [place] [address]Dr. Farhat Leal ALT [Catalytic activity/Vol] 18 U/L Normal 16-63 [facility] Comment on above: Performed By: #### C MP ####[facility] Gnrnynrwhz8724 [place] [address]Dr. Farhat Leal Anion gap [Moles/Vol] 10.2 mmol/L Normal [facility] Comment on above: Performed By: #### C MP ####[facility] Crbmclzjqx057[address] [place], [place] [address]Dr. Farhat Leal AST [Catalytic activity/Vol] 16 U/L Normal 15-37 [facility] Comment on above: Performed By: #### C MP ####[facility] Dmesxsmnya1429[address] [place], [place] [address]Dr. Farhat Leal Bilirubin [Mass/Vol] 0.6 mg/dL Normal 0.2-1.0 [facility] Comment on above: Performed By: #### C MP ####[facility] Diyiizjoyb2237[address] [place], [place] [address]Dr. Farhat Leal Calcium [Mass/Vol] 8.5 mg/dL Normal 8.5-10.1 [facility] Comment on above: Performed By: #### C MP ####[facility] Pgtfeaofly4388[address] [place], [place] [address]Dr. Farhat Leal Chloride [Moles/Vol] 106 mmol/L Normal 98-107 [facility] Comment on above: Performed By: #### C MP ####[facility] Jsxmmwhqeq0174[address] [place], [place] [address]Dr. Farhat Leal CO2 [Moles/Vol] 29.8 mmol/L Normal 21.0-32.0 [facility] Comment on above: Performed By: #### C MP ####[facility] Xpsnualmvq254[address] [place], [place] [address]Dr. Farhat Leal Creatinine [Mass/Vol] 1.60 mg/dL Critically high 0.70-1.30 [facility] Comment on above: Performed By: #### C MP ####[facility] Vwrkjlajqz[address] [place] [address]Dr. Farhat Leal EGFR-AF ERITREAN 51 mL/min/1.73m2 Critically low >=60 [facility] Comment on above: Performed By: #### C MP ####[facility] Aptamtwqnz2704 [place] [address]Dr. Farhat Leal EGFR-NON AF ERITREAN 42 mL/min/1.73m2 Critically low >=60 [facility] Comment on above: Performed By: #### C MP ####[facility] Qrxitwrpyj8955 [place] [address]Dr. Farhat Leal Globulin (S) [Mass/Vol] 3.4 g/dL Normal [facility] Comment on above: Performed By: #### C MP ####[facility] Figafeuefs5017[address] [place], [place] [address]Dr. Farhat Leal Glucose [Mass/Vol] 178 mg/dL Critically high 74-106 [facility] Comment on above: Performed By: #### C MP ####[facility] Lmcaxzptcl24[address] [place], [place] [address]Dr. Farhat Leal Potassium [Moles/Vol] 4.0 mmol/L Normal 3.5-5.1 [facility] Comment on above: Performed By: #### C MP ####[facility] Wrvmujjgql6708[address] [place], [place] [address]Dr. Farhat Leal Protein [Mass/Vol] 6.0 g/dL Critically low 6.4-8.2 [facility] Comment on above: Performed By: #### C MP ####[facility] Ctgdtsljrh0289 [place] [address]Dr. Farhat Leal Sodium [Moles/Vol] 142 mmol/L Normal 136-145 [facility] Comment on above: Performed By: #### C MP ####[facility] Wkaioqbxzl5[address] [place], [place] [address]Dr. Farhat Leal Urea nitrogen [Mass/Vol] 49.0 mg/dL Critically high 7.0-18.0 [facility] Comment on above: Performed By: #### C MP ####[facility] Qyruyzbbcd3926[address] [place], [place] [address]Dr. Farhat Leal Urea nitrogen/Creatinine [Mass ratio] 30.6 mg/mg Normal [facility] Comment on above: Performed By: #### C MP ####[facility] Ojgglunxnn79[address] [place], [place] [address]Dr. Farhat Elvis PROTIMEon 06-26-2022 INR Coag (PPP) [Relative time] 1.77 {INR} Normal [facility] Comment on above: Performed By: #### P T ####[facility] Zdfbeivcsq57[address] [place], [place] [address]Dr. Farhat Leal INR GUIDELINES SEE BELOW Normal [facility] Comment on above: Result Comment: MALINA RED INR: 2.0 - 3.0 CONDITIONS NOT LISTED BELOW 2.5 - 3.5 FOR PROSTHETIC HEART VALVE REPLACEMENT 2.5 - 3.5 RECURRENT THROMBOSIS Performed By: #### P T ####[facility] Vrkjwrwggx8[address] [place], [place] [address]Dr. Farhat Leal PT Coag (PPP) [Time] 18.2 s Critically high 9.0-11.6 [facility] Comment on above: Performed By: #### P T ####[facility] [address] [place] [address]. Farhat Leal FK506 (TACROLIMUS) WHOLE BLO ODon 06-22-2022 Tacrolimus (FK506), Blood 24.5 ng/mL Invalid Interpretation Code 2.0-20.0 [facility] Comment on above: Result Comment: Trou gh (immediately following transplant) 15.0 . Trough (steady state, 2 weeks or more after transplant): 3.0 - 8.0 . Performed by LC-MS/MS technology.Patient drug level exceeds published reference range. Evaluateclinically for signs of potential toxicity. Performed By: #### F K506T ####[facility] Czftlxwhwy[address] [place], [place] [address]Dr. Farhat Leal CBC AUTO DIFFon 06-19-2022 BASO # 0.1 103/ul Normal 0.0-0.1 [facility] Comment on above: Performed By: #### C BC ####[facility] Wcaeualztc8702 [place] [phone]. Farhat Leal Basophils/100 WBC (Bld) 0.7 % Normal 0.2-2.0 [facility] Comment on above: Performed By: #### C BC ####[facility] Ehxdwpbxsf5312 [place] [phone]. Farhat Leal EO # 0.4 103/ul Normal 0.0-0.7 [facility] Comment on above: Performed By: #### C BC ####[facility] Qxdntsdfll7[address] [place], [place] [address]Dr. Farhat Leal Eosinophils/100 WBC (Bld) 5.7 % Normal 0.9-7.0 [facility] Comment on above: Performed By: #### C BC ####[facility] Huthqfebuf7[address] [place], [place] [address]Dr. Farhat Leal Erythrocyte distribution width (RBC) [Ratio] 14.5 % Normal 11.0-15.0 [facility] Comment on above: Performed By: #### C BC ####[facility] Ttizkarsan[address] [place], [place] [address]Dr. Farhat Leal Hematocrit (Bld) [Volume fraction] 34.1 % Critically low 42.0-54.0 [facility] Comment on above: Performed By: #### C BC ####[facility] K[address]atvngn[address] [place], [place] [id number]. Farhat Leal Hemoglobin (Bld) [Mass/Vol] 11.3 g/dL Critically low 14.0-18.0 [facility] Comment on above: Performed By: #### C BC ####[facility] Dydkfqwgeh[address] [place], [place] [address]Dr. Farhat Leal IG # 0.02 10e3/ul Normal 0.00-0.03 [facility] Comment on above: Performed By: #### C BC ####[facility] Zrsnyhsfhe[address] [place], [place] [id number]. Farhat Leal IG % 0.3 % Normal 0.0-0.5 [facility] Comment on above: Performed By: #### C BC ####[facility] Vayanashyr9024 [place] [phone]. Farhat Leal LYMPH # 3.1 103/ul Normal 1.2-3.8 [facility] Comment on above: Performed By: #### C BC ####[facility] Zcxroyjyim8383 [place] [phone]. Farhat Leal Lymphocytes/100 WBC (Bld) 40.6 % Normal 20.5-60.0 [facility] Comment on above: Performed By: #### C BC ####[facility] Muxdnjcdtc6642 [place] [phone]. Farhat Elvis MANUAL DIFF REQ NO Normal [facility] Comment on above: Performed By: #### C BC ####[facility] Mlauqhzwif6728 [place] [phone]. Farhat Elvis MCH (RBC) [Entitic mass] 30.6 pg Normal 25.9-34.0 [facility] Comment on above: Performed By: #### C BC ####[facility] Mouztfecan2120 [place] [phone]. Farhat Leal MCHC (RBC) [Mass/Vol] 33.1 g/dL Normal 29.9-35.2 [facility] Comment on above: Performed By: #### C BC ####[facility] Mgskabyyit0117 [place] [phone]. Farhat Elvis MCV (RBC) [Entitic vol] 92.4 fL Normal 80.0-94.0 [facility] Comment on above: Performed By: #### C BC ####[facility] Vanikesfqu3522 [place] [phone]. Farhat Elvis MONO # 0.8 103/ul Normal 0.3-0.8 [facility] Comment on above: Performed By: #### C BC ####[facility] Khcaaqyjwz8283 [place] [phone]. Farhat Elvis Monocytes/100 WBC (Bld) 10.6 % Normal 1.7-12.0 [facility] Comment on above: Performed By: #### C BC ####[facility] Zpgxmwdbpy4939 [place] [phone]. Farhat Leal NEUT # 3.2 103/ul Normal 1.4-6.5 [facility] Comment on above: Performed By: #### C BC ####[facility] Hjtuzdbymo0113 [place] [phone]. Farhat Leal Neutrophils/100 WBC (Bld) 42.1 % Critically low 43.0-75.0 [facility] Comment on above: Performed By: #### C BC ####[facility] Htamwvsttl1429 [place] [phone]. Farhat Leal Platelet mean volume (Bld) [Entitic vol] 10.6 fL Normal 9.5-13.5 [facility] Comment on above: Performed By: #### C BC ####[facility] Iqbgmuxemf8340 [place] [phone]. Madelynlorri Elvis PLT 187 103/ul Normal 150-450 [facility] Comment on above: Performed By: #### C BC ####[facility] Heucvyczkh8358 [place] [phone]. Farhat Elvis RBC 3.69 106/ul Critically low 4.70-6.[address] [facility] Comment on above: Performed By: #### C BC ####[facility] Msppevkdrp1527 [place] [phone]. Farhat Leal WBC 7.7 103/ul Normal 4.0-11.0 [facility] Comment on above: Performed By: #### C BC ####[facility] Kinujwfqiu57[address] [place] [address]Dr. Farhat Leal PROF 14(COMP METB)on 023 Albumin [Mass/Vol] 2.5 g/dL Critically low 3.4-5.0 [facility] Comment on above: Performed By: #### C MP ####[facility] Nepeghrhmw7689 [place] [phone]. Farhat Leal Albumin/Globulin [Mass ratio] 0.8 {ratio} Normal [facility] Comment on above: Performed By: #### C MP ####[facility] Tyzklhxafz7250 [place] [phone]. Farhat Leal ALP [Catalytic activity/Vol] 60 U/L Normal 46-116 [facility] Comment on above: Performed By: #### C MP ####[facility] Yopcqfxrom0503 [place] [address]Dr. Farhat Leal ALT [Catalytic activity/Vol] 16 U/L Normal 16-63 [facility] Comment on above: Performed By: #### C MP ####[facility] Hocxfpkadd7820 [place] [address]Dr. Farhat Leal Anion gap [Moles/Vol] 9.1 mmol/L Normal [facility] Comment on above: Performed By: #### C MP ####[facility] Veqwemyqsu6968 [place] [address]Dr. Farhat Leal AST [Catalytic activity/Vol] 31 U/L Normal 15-37 [facility] Comment on above: Performed By: #### C MP ####[facility] Imjisqqedi[address] [place], [place] [address]Dr. Farhat Leal Bilirubin [Mass/Vol] 0.3 mg/dL Normal 0.2-1.0 [facility] Comment on above: Performed By: #### C MP ####[facility] H[address]zqeefhy[address] [place], [place] [address]Dr. Farhat Leal Calcium [Mass/Vol] 8.2 mg/dL Critically low 8.5-10.1 [facility] Comment on above: Performed By: #### C MP ####[facility] Nmrsrhagaz9522 [place] [address]Dr. Farhat Leal Chloride [Moles/Vol] 106 mmol/L Normal 98-107 [facility] Comment on above: Performed By: #### C MP ####[facility] Xxclkyythq47[address] [place], [place] [address]Dr. Farhat Leal CO2 [Moles/Vol] 27.0 mmol/L Normal 21.0-32.0 [facility] Comment on above: Performed By: #### C MP ####[facility] Vwyvymlkuf8285 [place] [address]Dr. Farhat Leal Creatinine [Mass/Vol] 1.51 mg/dL Critically high 0.70-1.30 [facility] Comment on above: Performed By: #### C MP ####[facility] Lkumtkesqx8091 [place] [address]Dr. Farhat Leal EGFR-AF ERITREAN 55 mL/min/1.73m2 Critically low >=60 [facility] Comment on above: Performed By: #### C MP ####[facility] [address] [place] [address]Dr. Farhat Leal EGFR-NON AF ERITREAN 45 mL/min/1.73m2 Critically low >=60 [facility] Comment on above: Performed By: #### C MP ####[facility] Zdhabausik[address] [place], [place] [address]Dr. Farhat Leal Globulin (S) [Mass/Vol] 3.2 g/dL Normal [facility] Comment on above: Performed By: #### C MP ####[facility] Eojoyzlxmt[address] [place], [place] [address]Dr. Farhat Leal Glucose [Mass/Vol] 165 mg/dL Critically high 74-106 [facility] Comment on above: Performed By: #### C MP ####[facility] [address] [place] [address]Dr. Farhat Leal Potassium [Moles/Vol] 4.1 mmol/L Normal 3.5-5.1 [facility] Comment on above: Performed By: #### C MP ####[facility] [address]vixetr[address] [place] [address]Dr. Farhat Leal Protein [Mass/Vol] 5.7 g/dL Critically low 6.4-8.2 [facility] Comment on above: Performed By: #### C MP ####[facility] Nualesygfr[address] [place], [place] [address]Dr. Farhat Leal Sodium [Moles/Vol] 138 mmol/L Normal 136-145 [facility] Comment on above: Performed By: #### C MP ####[facility] Chllnokgiq29[address] [place], [place] [address]Dr. Farhat Leal Urea nitrogen [Mass/Vol] 51.0 mg/dL Critically high 7.0-18.0 [facility] Comment on above: Performed By: #### C MP ####[facility] Ecmsejrwez11[address] [place], [place] [address]Dr. Farhat Leal Urea nitrogen/Creatinine [Mass ratio] 33.8 mg/mg Normal [facility] Comment on above: Performed By: #### C MP ####[facility] Xmcjtkbepa[address] [place], [place] [address]Dr. Farhat Leal FK506 (TACROLIMUS) WHOLE BLO ODon 06-15-2022 Tacrolimus (FK506), Blood 16.4 ng/mL Normal 2.0-20.0 [facility] Comment on above: Result Comment: Trou gh (immediately following transplant) 15.0 . Trough (steady state, 2 weeks or more after transplant): 3.0 - 8.0 . Performed by LC-MS/MS technology. Performed By: #### F K506T ####[facility] Gyjvkhleub9[address] [place], [place] [address]Dr. Farhat Leal PROTIMEon 06-15-2022 INR Coag (PPP) [Relative time] 1.64 {INR} Normal [facility] Comment on above: Performed By: #### P T ####[facility] Buvkomonbq[address] [place], [place] [address]DrSkylar Leal INR GUIDELINES SEE BELOW Normal [facility] Comment on above: Result Comment: MALINA RED INR: 2.0 - 3.0 CONDITIONS NOT LISTED BELOW 2.5 - 3.5 FOR PROSTHETIC HEART VALVE REPLACEMENT 2.5 - 3.5 RECURRENT THROMBOSIS Performed By: #### P T ####[facility] Ziylzguofx6[address] [place], [place] [address]DrSkylar Leal PT Coag (PPP) [Time] 16.9 s Critically high 9.0-11.6 [facility] Comment on above: Performed By: #### P T ####[facility] Qzlfovfirr23[address] [place], [place] [address]DrSkylar Leal CBC AUTO DIFFon 06-12-2022 BASO # 0.0 103/ul Normal 0.0-0.1 [facility] Comment on above: Performed By: #### C BC ####[facility] [address] [place] [address]Dr. Farhat Leal Basophils/100 WBC (Bld) 0.4 % Normal 0.2-2.0 [facility] Comment on above: Performed By: #### C BC ####[facility] Geejxrrccr8[address] [place], [place] [address]Dr. Farhat Leal EO # 0.4 103/ul Normal 0.0-0.7 [facility] Comment on above: Performed By: #### C BC ####[facility] Uabvhipbrd1513[address] [place], [place] [address]Dr. Farhat Leal Eosinophils/100 WBC (Bld) 5.4 % Normal 0.9-7.0 [facility] Comment on above: Performed By: #### C BC ####[facility] Qebhpnwyay5[address] [place], [place] [address]Dr. Farhat Leal Erythrocyte distribution width (RBC) [Ratio] 14.7 % Normal 11.0-15.0 [facility] Comment on above: Performed By: #### C BC ####[facility] Yawkbztmae6[address] [place], [place] [address]Dr. Farhat Leal Hematocrit (Bld) [Volume fraction] 34.8 % Critically low 42.0-54.0 [facility] Comment on above: Performed By: #### C BC ####[facility] Zxoouhimfu0200[address] [place], [place] [address]Dr. Farhat Leal Hemoglobin (Bld) [Mass/Vol] 11.7 g/dL Critically low 14.0-18.0 [facility] Comment on above: Performed By: #### C BC ####[facility] Itharecpog1796[address] [place], [place] [address]Dr. Farhat Leal IG # 0.02 10e3/ul Normal 0.00-0.03 [facility] Comment on above: Performed By: #### C BC ####[facility] Boijkbyryo2576[address] [place], [place] [address]Dr. Farhat Leal IG % 0.3 % Normal 0.0-0.5 [facility] Comment on above: Performed By: #### C BC ####[facility] [address] [place] [address]DrSkylar Leal LYMPH # 2.5 103/ul Normal 1.2-3.8 [facility] Comment on above: Performed By: #### C BC ####[facility] [address]vmhb[address] [place] [address]Dr. Farhat Leal Lymphocytes/100 WBC (Bld) 36.8 % Normal 20.5-60.0 [facility] Comment on above: Performed By: #### C BC ####[facility] Japfydmhzw26[address] [place], [place] [address]DrSkylra Leal MANUAL DIFF REQ NO Normal [facility] Comment on above: Performed By: #### C BC ####[facility] [address]jcpg[address] [place] [address]Dr. Farhat Leal MCH (RBC) [Entitic mass] 30.9 pg Normal 25.9-34.0 [facility] Comment on above: Performed By: #### C BC ####[facility] Dkbeyvpueg9[address] [place], [place] [address]Dr. Madelynlorri Leal MCHC (RBC) [Mass/Vol] 33.6 g/dL Normal 29.9-35.2 [facility] Comment on above: Performed By: #### C BC ####[facility] Tkgtxulnoh4630[address] [place], [place] [address]DrSkylar Leal MCV (RBC) [Entitic vol] 91.8 fL Normal 80.0-94.0 [facility] Comment on above: Performed By: #### C BC ####[facility] Bteqwdeomm[address] [place], [place] [address]DrSkylar Leal MONO # 0.8 103/ul Normal 0.3-0.8 [facility] Comment on above: Performed By: #### C BC ####[facility] Etvqerncpb4[address] [place], [place] [address]DrSkylar Leal Monocytes/100 WBC (Bld) 11.9 % Normal 1.7-12.0 [facility] Comment on above: Performed By: #### C BC ####[facility] [address] [place] [address]DrSkylar Farhat Leal NEUT # 3.1 103/ul Normal 1.4-6.5 [facility] Comment on above: Performed By: #### C BC ####[facility] V[address]dr[address] [place] [address]DrSkylar Farhat Leal Neutrophils/100 WBC (Bld) 45.2 % Normal 43.0-75.0 [facility] Comment on above: Performed By: #### C BC ####[facility] Mcfeicfkcx7035[address] [place], [place] [address]DrSkylar Farhat Leal Platelet mean volume (Bld) [Entitic vol] 10.5 fL Normal 9.5-13.5 [facility] Comment on above: Performed By: #### C BC ####[facility] Eqzwdgonre4109[address] [place], [place] [address]Dr. Farhat Leal PLT 175 103/ul Normal 150-450 [facility] Comment on above: Performed By: #### C BC ####[facility] Acbbheymts[address] [place], [place] [address]DrSkylar Farhat Leal RBC 3.79 106/ul Critically low 4.70-6.[address] [facility] Comment on above: Performed By: #### C BC ####[facility] Uufgrmjwuz[address] [place], [place] [address]DrSkylar Farhat Leal WBC 6.8 103/ul Normal 4.0-11.0 [facility] Comment on above: Performed By: #### C BC ####[facility] Gyavqkmhen[address] [place], [place] [address]DrSkylar Farhat Leal MAGNESIUMon 06-12-2022 Magnesium [Mass/Vol] 1.6 mg/dL Critically low 1.8-2.4 [facility] Comment on above: Performed By: #### C MP, MG, PHOS ####[facility] Tpwbehrskj35[address] [place], [place] [address]Dr. Farhat Leal PHOSPHORUSon 06-12-2022 Phosphate [Mass/Vol] 3.8 mg/dL Normal 2.6-4.7 [facility] Comment on above: Performed By: #### C MP, MG, PHOS ####[facility] [address] [place] [address]Dr. Farhat Leal PROF 14(COMP METB)on 023 Albumin [Mass/Vol] 2.6 g/dL Critically low 3.4-5.0 [facility] Comment on above: Performed By: #### C MP, MG, PHOS ####[facility] [address] [place] [address]Dr. Farhat Leal Albumin/Globulin [Mass ratio] 0.8 {ratio} Normal [facility] Comment on above: Performed By: #### C MP, MG, PHOS ####[facility] [address] [place] [address]Dr. Farhat Leal ALP [Catalytic activity/Vol] 64 U/L Normal 46-116 [facility] Comment on above: Performed By: #### C MP, MG, PHOS ####[facility] Y[address]whkzpo[address] [place] [address]Dr. Farhat Leal ALT [Catalytic activity/Vol] 18 U/L Normal 16-63 [facility] Comment on above: Performed By: #### C MP, MG, PHOS ####[facility] Akzgw[address]kxj[address] [place] [address]Dr. Farhat Leal Anion gap [Moles/Vol] 12.9 mmol/L Normal [facility] Comment on above: Performed By: #### C MP, MG, PHOS ####[facility] Ybfhmwxron[address] [place] [address]Dr. Farhat Leal AST [Catalytic activity/Vol] 18 U/L Normal 15-37 [facility] Comment on above: Performed By: #### C MP, MG, PHOS ####[facility] [address]wel[address] [place] [address]Dr. Farhta Leal Bilirubin [Mass/Vol] 0.4 mg/dL Normal 0.2-1.0 [facility] Comment on above: Performed By: #### C MP, MG, PHOS ####[facility] [address]pman[address] [place] [address]Dr. Farhat Leal Calcium [Mass/Vol] 8.7 mg/dL Normal 8.5-10.1 [facility] Comment on above: Performed By: #### C MP, MG, PHOS ####[facility] Fdbjsumyil[address] [place], [place] [address]Dr. Farhat Leal Chloride [Moles/Vol] 105 mmol/L Normal 98-107 [facility] Comment on above: Performed By: #### C MP, MG, PHOS ####[facility] Tbxompgkcz[address] [place], [place] [address]Dr. Farhat Leal CO2 [Moles/Vol] 27.9 mmol/L Normal 21.0-32.0 [facility] Comment on above: Performed By: #### C MP, MG, PHOS ####[facility] Brcqmnidox[address] [place], [place] [address]Dr. Farhat Leal Creatinine [Mass/Vol] 1.53 mg/dL Critically high 0.70-1.30 [facility] Comment on above: Performed By: #### C MP, MG, PHOS ####[facility] Hqpvpsfvfm[address] [place], [place] [address]Dr. Farhat Leal EGFR-AF ERITREAN 54 mL/min/1.73m2 Critically low >=60 [facility] Comment on above: Performed By: #### C MP, MG, PHOS ####[facility] Ykockhkrtw[address] [place], [place] [address]Dr. Farhat Leal EGFR-NON AF ERITREAN 44 mL/min/1.73m2 Critically low >=60 [facility] Comment on above: Performed By: #### C MP, MG, PHOS ####[facility] [address] [place] [address]Dr. Farhat Leal Globulin (S) [Mass/Vol] 3.4 g/dL Normal [facility] Comment on above: Performed By: #### C MP, MG, PHOS ####[facility] [address] [place] [address]Dr. Farhat Leal Glucose [Mass/Vol] 179 mg/dL Critically high 74-106 [facility] Comment on above: Performed By: #### C MP, MG, PHOS ####[facility] Am[address]ecjcg[address] [place] [address]Dr. Farhat Leal Potassium [Moles/Vol] 3.8 mmol/L Normal 3.5-5.1 [facility] Comment on above: Performed By: #### C MP, MG, PHOS ####[facility] [address]fr[address]qlg[address] [place] [address]Dr. Farhat Leal Protein [Mass/Vol] 6.0 g/dL Critically low 6.4-8.2 [facility] Comment on above: Performed By: #### C MP, MG, PHOS ####[facility] Pr[address]oscwbs[address] [place] [address]Dr. Farhat Leal Sodium [Moles/Vol] 142 mmol/L Normal 136-145 [facility] Comment on above: Performed By: #### C MP, MG, PHOS ####[facility] [address]auyqi[address] [place] [address]Dr. Farhat Leal Urea nitrogen [Mass/Vol] 56.0 mg/dL Critically high 7.0-18.0 [facility] Comment on above: Performed By: #### C MP, MG, PHOS ####[facility] V[address]nkod[address] [place] [address]Dr. Farhat Leal Urea nitrogen/Creatinine [Mass ratio] 36.6 mg/mg Normal [facility] Comment on above: Performed By: #### C MP, MG, PHOS ####[facility] [address]xu[address] [place] [address]Dr. Farhat Elvis FK506 (TACROLIMUS) WHOLE BLO ODon 06-08-2022 Tacrolimus (FK506), Blood 13.2 ng/mL Normal 2.0-20.0 [facility] Comment on above: Result Comment: Trou gh (immediately following transplant) 15.0 . Trough (steady state, 2 weeks or more after transplant): 3.0 - 8.0 . Performed by LC-MS/MS technology. Performed By: #### F K506T ####[facility] [address]jczxznuv[address] [place], [place] [address]Dr. Farhat Leal CBC AUTO DIFFon 06-05-2022 BASO # 0.1 103/ul Normal 0.0-0.1 [facility] Comment on above: Performed By: #### C BC ####[facility] Hqemhrzuha75[address] [place], [place] [address]Dr. Farhat Leal Basophils/100 WBC (Bld) 0.8 % Normal 0.2-2.0 [facility] Comment on above: Performed By: #### C BC ####[facility] Guemfrgrpv24[address] [place], [place] [address]Dr. Farhat Leal EO # 0.3 103/ul Normal 0.0-0.7 [facility] Comment on above: Performed By: #### C BC ####[facility] Ctzgspumdr[address] [place], [place] [address]Dr. Madelynlorri Leal Eosinophils/100 WBC (Bld) 4.7 % Normal 0.9-7.0 [facility] Comment on above: Performed By: #### C BC ####[facility] Xoteqbsosf[address] [place], [place] [address]Dr. Farhat Leal Erythrocyte distribution width (RBC) [Ratio] 15.1 % Critically high 11.0-15.0 [facility] Comment on above: Performed By: #### C BC ####[facility] Kxrlkhkjpf[address] [place], [place] [address]Dr. Farhat Leal Hematocrit (Bld) [Volume fraction] 35.5 % Critically low 42.0-54.0 [facility] Comment on above: Performed By: #### C BC ####[facility] [address]exyjzbk[address] [place], [place] [address]Dr. Farhat Leal Hemoglobin (Bld) [Mass/Vol] 11.7 g/dL Critically low 14.0-18.0 [facility] Comment on above: Performed By: #### C BC ####[facility] [address] [place] [id number]. Madelynlorri Leal IG # 0.01 10e3/ul Normal 0.00-0.03 [facility] Comment on above: Performed By: #### C BC ####[facility] [address]gfui[address] [place] [address]Dr. Madelynlorri Elvis IG % 0.2 % Normal 0.0-0.5 [facility] Comment on above: Performed By: #### C BC ####[facility] [address]omz[address] [place] [address]Dr. Madelynlorri Elvis LYMPH # 2.1 103/ul Normal 1.2-3.8 [facility] Comment on above: Performed By: #### C BC ####[facility] Antrhfbixf[address] [place] [address]Dr. Farhat Leal Lymphocytes/100 WBC (Bld) 34.5 % Normal 20.5-60.0 [facility] Comment on above: Performed By: #### C BC ####[facility] [address]xjdxwind[address] [place] [address]Dr. Farhat Leal MANUAL DIFF REQ NO Normal [facility] Comment on above: Performed By: #### C BC ####[facility] [address]afkqppuve[address] [place] [address]Dr. Farhat Elvis MCH (RBC) [Entitic mass] 30.6 pg Normal 25.9-34.0 [facility] Comment on above: Performed By: #### C BC ####[facility] [address]qifnezl[address] [place] [address]Dr. Farhat Elvis MCHC (RBC) [Mass/Vol] 33.0 g/dL Normal 29.9-35.2 [facility] Comment on above: Performed By: #### C BC ####[facility] C[address]wbqafce[address] [place] [address]Dr. Farhat Elvis MCV (RBC) [Entitic vol] 92.9 fL Normal 80.0-94.0 [facility] Comment on above: Performed By: #### C BC ####[facility] [address]ff[address]odbkg[address] [place] [id number]. Farhat Leal MONO # 0.7 103/ul Normal 0.3-0.8 [facility] Comment on above: Performed By: #### C BC ####[facility] [address]hdidsuf[address] [place] [id number]. Farhat Leal Monocytes/100 WBC (Bld) 11.4 % Normal 1.7-12.0 [facility] Comment on above: Performed By: #### C BC ####[facility] [address]og[address] [place] [id number]. Farhat Leal NEUT # 2.9 103/ul Normal 1.4-6.5 [facility] Comment on above: Performed By: #### C BC ####[facility] [address]qkcvqklb[address] [place], [place] [address]Dr. Farhat Leal Neutrophils/100 WBC (Bld) 48.4 % Normal 43.0-75.0 [facility] Comment on above: Performed By: #### C BC ####[facility] [address]wliqhzoer[address] [place], [place] [address]Dr. Farhat Leal Platelet mean volume (Bld) [Entitic vol] 10.7 fL Normal 9.5-13.5 [facility] Comment on above: Performed By: #### C BC ####[facility] I[address]us[address]rvb[address] [place], [place] [id number]. Farhat Leal PLT 185 103/ul Normal 150-450 [facility] Comment on above: Performed By: #### C BC ####[facility] Rklegbmorm[address] [place], [place] [address]Dr. Farhat Leal RBC 3.82 106/ul Critically low 4.70-6.[address] [facility] Comment on above: Performed By: #### C BC ####[facility] Yaitssugbw[address] [place], [place] [address]Dr. Farhat Leal WBC 6.0 103/ul Normal 4.0-11.0 [facility] Comment on above: Performed By: #### C BC ####[facility] U[address]xcgbtqp[address] [place], [place] [address]Dr. Farhat Leal MAGNESIUMon 06-05-2022 Magnesium [Mass/Vol] 1.9 mg/dL Normal 1.8-2.4 [facility] Comment on above: Performed By: #### P HOS, MG ####[facility] [address]wgvxpnil[address] [place] [address]Dr. Farhat Leal PHOSPHORUSon 06-05-2022 Phosphate [Mass/Vol] 4.4 mg/dL Normal 2.6-4.7 [facility] Comment on above: Performed By: #### P HOS, MG ####[facility] I[address]qqpcyum[address] [place] [address]Dr. Farhat Leal PROTIMEon 06-05-2022 INR Coag (PPP) [Relative time] 2.16 {INR} Normal [facility] Comment on above: Performed By: #### P T ####[facility] [address]roxa[address] [place] [address]Dr. Farhat Leal INR GUIDELINES SEE BELOW Normal [facility] Comment on above: Result Comment: MALINA RED INR: 2.0 - 3.0 CONDITIONS NOT LISTED BELOW 2.5 - 3.5 FOR PROSTHETIC HEART VALVE REPLACEMENT 2.5 - 3.5 RECURRENT THROMBOSIS Performed By: #### P T ####[facility] Y[address]fqvhci[address] [place] [address]Dr. Farhat Leal PT Coag (PPP) [Time] 21.9 s Critically high 9.0-11.6 [facility] Comment on above: Performed By: #### P T ####[facility] Kesqntbzht[address] [place] [address]Dr. Farhat Leal FK506 (TACROLIMUS) WHOLE BLO ODon 06-01-2022 Tacrolimus (FK506), Blood 26.4 ng/mL Invalid Interpretation Code 2.0-20.0 [facility] Comment on above: Result Comment: Trou gh (immediately following transplant) 15.0 . Trough (steady state, 2 weeks or more after transplant): 3.0 - 8.0 . Performed by LC-MS/MS technology.Patient drug level exceeds published reference range. Evaluateclinically for signs of potential toxicity. Performed By: #### F K506T ####[facility] Q[address]ljirbfd[address] [place] [id number]. Farhat Leal CBC AUTO DIFFon 05-29-2022 BASO # 0.0 103/ul Normal 0.0-0.1 [facility] Comment on above: Performed By: #### C BC ####[facility] Lfnmefghpr[address] [place], [place] [address]Dr. Farhat Elvis Basophils/100 WBC (Bld) 0.6 % Normal 0.2-2.0 [facility] Comment on above: Performed By: #### C BC ####[facility] [address]azluqb[address] [place], [place] [address]Dr. Farhat Elal EO # 0.3 103/ul Normal 0.0-0.7 [facility] Comment on above: Performed By: #### C BC ####[facility] Exdvqhpxge[address] [place], [place] [address]Dr. Madelynlorri Leal Eosinophils/100 WBC (Bld) 4.7 % Normal 0.9-7.0 [facility] Comment on above: Performed By: #### C BC ####[facility] [address]fbtpgiojl[address] [place], [place] [address]Dr. Farhat Leal Erythrocyte distribution width (RBC) [Ratio] 15.3 % Critically high 11.0-15.0 [facility] Comment on above: Performed By: #### C BC ####[facility] Wjlyaqfakr070836 [address] [place], [place] [address]Dr. Farhat Leal Hematocrit (Bld) [Volume fraction] 36.6 % Critically low 42.0-54.0 [facility] Comment on above: Performed By: #### C BC ####[facility] Yhbboainis879[address] [place], [place] [address]Dr. Farhat Leal Hemoglobin (Bld) [Mass/Vol] 12.3 g/dL Critically low 14.0-18.0 [facility] Comment on above: Performed By: #### C BC ####[facility] Rwdzvjhxjg6[address] [place], [place] [address]Dr. Farhat Leal IG # 0.02 10e3/ul Normal 0.00-0.03 [facility] Comment on above: Performed By: #### C BC ####[facility] Ywchaivrkw2894 [place] [address]Dr. Madelynlorri Leal IG % 0.3 % Normal 0.0-0.5 [facility] Comment on above: Performed By: #### C BC ####[facility] Iveroutdqt7567 [place] [phone]. Farhat Elvis LYMPH # 2.8 103/ul Normal 1.2-3.8 [facility] Comment on above: Performed By: #### C BC ####[facility] Vhpmskjtyl4576[address] [place], [place] [address]Dr. Madelynlorri Leal Lymphocytes/100 WBC (Bld) 44.4 % Normal 20.5-60.0 [facility] Comment on above: Performed By: #### C BC ####[facility] Scdtjltecs8875[address] [place], [place] [address]Dr. Farhat Leal MANUAL DIFF REQ NO Normal [facility] Comment on above: Performed By: #### C BC ####[facility] Mqaseczzmg7484 [place] [address]Dr. Farhat Elvis MCH (RBC) [Entitic mass] 30.4 pg Normal 25.9-34.0 [facility] Comment on above: Performed By: #### C BC ####[facility] Pdmlacteul6259 [place] [address]Dr. Farhat Elvis MCHC (RBC) [Mass/Vol] 33.6 g/dL Normal 29.9-35.2 [facility] Comment on above: Performed By: #### C BC ####[facility] Byshivunco[address] [place], [place] [address]Dr. Farhat Elvis MCV (RBC) [Entitic vol] 90.4 fL Normal 80.0-94.0 [facility] Comment on above: Performed By: #### C BC ####[facility] Ihhyemzoja49[address] [place], [place] [address]Dr. Farhat Leal MONO # 0.7 103/ul Normal 0.3-0.8 [facility] Comment on above: Performed By: #### C BC ####[facility] Vonurxztyp1747 [place] [phone]. Farhat Leal Monocytes/100 WBC (Bld) 10.7 % Normal 1.7-12.0 [facility] Comment on above: Performed By: #### C BC ####[facility] Xbcbbtbfqi5963 [place] [phone]. Farhat Leal NEUT # 2.5 103/ul Normal 1.4-6.5 [facility] Comment on above: Performed By: #### C BC ####[facility] Sexqdptyns7550 [place] [phone]. Farhat Leal Neutrophils/100 WBC (Bld) 39.3 % Critically low 43.0-75.0 [facility] Comment on above: Performed By: #### C BC ####[facility] Jwcprfbbij3087 [place] [address]Dr. Farhat Leal Platelet mean volume (Bld) [Entitic vol] 10.5 fL Normal 9.5-13.5 [facility] Comment on above: Performed By: #### C BC ####[facility] Nmcbslxsda7830 [place] [address]Dr. Farhat Leal PLT 190 103/ul Normal 150-450 [facility] Comment on above: Performed By: #### C BC ####[facility] Xgtqnxfsid5435 [place] [phone]. Farhat Leal RBC 4.05 106/ul Critically low 4.70-6.10 [facility] Comment on above: Performed By: #### C BC ####[facility] Gmzukafgxt4656 [place] [phone]. Farhat Leal WBC 6.4 103/ul Normal 4.0-11.0 [facility] Comment on above: Performed By: #### C BC ####[facility] Utneeilcmt8053 [place] [address]DrSkylar Leal PROF 14(COMP METB)on 023 Albumin [Mass/Vol] 2.5 g/dL Critically low 3.4-5.0 [facility] Comment on above: Performed By: #### C MP ####[facility] Svhgcvjvdl3950 [place] [address]Dr. Madelynlorri Elvis Albumin/Globulin [Mass ratio] 0.8 {ratio} Normal [facility] Comment on above: Performed By: #### C MP ####[facility] Mwdjheoqll2664 [place] [address]Dr. Farhat Leal ALP [Catalytic activity/Vol] 61 U/L Normal 46-116 [facility] Comment on above: Performed By: #### C MP ####[facility] Gqjrduwmbr1519 [place] [address]Dr. Farhat Leal ALT [Catalytic activity/Vol] 16 U/L Normal 16-63 [facility] Comment on above: Performed By: #### C MP ####[facility] Jwooxyebzo797836 [address] [place], [place] [address]Dr. Farhat Leal Anion gap [Moles/Vol] 12.3 mmol/L Normal [facility] Comment on above: Performed By: #### C MP ####[facility] Yyqyykvqyp7440[address] [place], [place] [address]Dr. Farhat Leal AST [Catalytic activity/Vol] 18 U/L Normal 15-37 [facility] Comment on above: Performed By: #### C MP ####[facility] Wwjqcsxwah1444[address] [place], [place] [address]Dr. Farhat Leal Bilirubin [Mass/Vol] 0.5 mg/dL Normal 0.2-1.0 [facility] Comment on above: Performed By: #### C MP ####[facility] Jhjdysjuoz0716[address] [place], [place] [address]Dr. Farhat Leal Calcium [Mass/Vol] 8.6 mg/dL Normal 8.5-10.1 [facility] Comment on above: Performed By: #### C MP ####[facility] Cpqfnylbnf854336 [address] [place], [place] [address]Dr. Farhat Leal Chloride [Moles/Vol] 105 mmol/L Normal 98-107 [facility] Comment on above: Performed By: #### C MP ####[facility] Ihmkrejvsr4258 [place] [phone]. Farhat Leal CO2 [Moles/Vol] 28.6 mmol/L Normal 21.0-32.0 [facility] Comment on above: Performed By: #### C MP ####[facility] Edgousaktr4772 [place] [phone]. Farhat Leal Creatinine [Mass/Vol] 1.47 mg/dL Critically high 0.70-1.30 [facility] Comment on above: Performed By: #### C MP ####[facility] Smjrixnqsz6492 [place] [phone]. Farhat Leal EGFR-AF ERITREAN 56 mL/min/1.73m2 Critically low >=60 [facility] Comment on above: Performed By: #### C MP ####[facility] Bifqzjepea9865[address] [place], [place] [address]Dr. Farhat Elvis EGFR-NON AF ERITREAN 46 mL/min/1.73m2 Critically low >=60 [facility] Comment on above: Performed By: #### C MP ####[facility] Ojlmxamviq3599 [place] [address]Dr. Farhat Leal Globulin (S) [Mass/Vol] 3.3 g/dL Normal [facility] Comment on above: Performed By: #### C MP ####[facility] Iollkkarle6871 [place] [address]Dr. Farhat Leal Glucose [Mass/Vol] 164 mg/dL Critically high 74-106 [facility] Comment on above: Performed By: #### C MP ####[facility] Cotirlrblr3082 [place] [phone]. Farhat Leal Potassium [Moles/Vol] 3.9 mmol/L Normal 3.5-5.1 [facility] Comment on above: Performed By: #### C MP ####[facility] Tkyfwumgoe0258[address] [place], [place] [address]Dr. Farhat Leal Protein [Mass/Vol] 5.8 g/dL Critically low 6.4-8.2 [facility] Comment on above: Performed By: #### C MP ####[facility] Ppxxumnodm2446 [place] [address]Dr. Farhat Leal Sodium [Moles/Vol] 142 mmol/L Normal 136-145 [facility] Comment on above: Performed By: #### C MP ####[facility] Dkchynrsgp8072 [place] [address]Dr. Farhat Leal Urea nitrogen [Mass/Vol] 53.0 mg/dL Critically high 7.0-18.0 [facility] Comment on above: Performed By: #### C MP ####[facility] Brujjorncx4545[address] [place], [place] [address]Dr. Farhat Leal Urea nitrogen/Creatinine [Mass ratio] 36.1 mg/mg Normal [facility] Comment on above: Performed By: #### C MP ####[facility] Xogoqqokiu232936 [address] [place], [place] [address]Dr. Farhat Leal PROTIMEon 05-29-2022 INR Coag (PPP) [Relative time] 2.41 {INR} Normal [facility] Comment on above: Performed By: #### P T ####[facility] Xvgbchhpov8529[address] [place], [place] [address]Dr. Farhat Leal INR GUIDELINES SEE BELOW Normal [facility] Comment on above: Result Comment: MALINA RED INR: 2.0 - 3.0 CONDITIONS NOT LISTED BELOW 2.5 - 3.5 FOR PROSTHETIC HEART VALVE REPLACEMENT 2.5 - 3.5 RECURRENT THROMBOSIS Performed By: #### P T ####[facility] Jvqdmwyiuv259[address] [place], [place] [address]Dr. Farhat Leal PT Coag (PPP) [Time] 24.3 s Critically high 9.0-11.6 [facility] Comment on above: Performed By: #### P T ####[facility] Yzmranoony182436 [address] [place], [place] [address]Dr. Farhat Leal FK506 (TACROLIMUS) WHOLE BLO ODon 05-25-2022 Tacrolimus (FK506), Blood 5.1 ng/mL Normal 2.0-20.0 [facility] Comment on above: Result Comment: Trou gh (immediately following transplant) 15.0 . Trough (steady state, 2 weeks or more after transplant): 3.0 - 8.0 . Performed by LC-MS/MS technology. Performed By: #### F K506T ####[facility] Qbghrftxoe9895 [place] [address]Dr. Farhat Leal CBC AUTO DIFFon 05-22-2022 BASO # 0.0 103/ul Normal 0.0-0.1 [facility] Comment on above: Performed By: #### C BC ####[facility] Vxuynjhpuj7465[address] [place], [place] [address]Dr. Madelynlorri Leal Basophils/100 WBC (Bld) 0.5 % Normal 0.2-2.0 [facility] Comment on above: Performed By: #### C BC ####[facility] Zsztifbkjx28[address] [place], [place] [address]Dr. Farhat Leal EO # 0.2 103/ul Normal 0.0-0.7 [facility] Comment on above: Performed By: #### C BC ####[facility] Isepozkdru4556[address] [place], [place] [address]Dr. Madelynlorri Leal Eosinophils/100 WBC (Bld) 4.0 % Normal 0.9-7.0 [facility] Comment on above: Performed By: #### C BC ####[facility] Kdufrkckwt6495[address] [place], [place] [address]Dr. Farhat Leal Erythrocyte distribution width (RBC) [Ratio] 15.5 % Critically high 11.0-15.0 [facility] Comment on above: Performed By: #### C BC ####[facility] Kvjgavgvos8423[address] [place], [place] [address]Dr. Farhat Leal Hematocrit (Bld) [Volume fraction] 34.1 % Critically low 42.0-54.0 [facility] Comment on above: Performed By: #### C BC ####[facility] Blkilcbyma9518[address] [place], [place] [address]Dr. Farhat Leal Hemoglobin (Bld) [Mass/Vol] 11.3 g/dL Critically low 14.0-18.0 [facility] Comment on above: Performed By: #### C BC ####[facility] Uolnqgdlup2559 [place] [phone]. Farhat Leal IG # 0.03 10e3/ul Normal 0.00-0.03 [facility] Comment on above: Performed By: #### C BC ####[facility] Nptgimamzy7517 [place] [phone]. Madelynlorri Leal IG % 0.5 % Normal 0.0-0.5 [facility] Comment on above: Performed By: #### C BC ####[facility] Pvgdmgayhh1726 [place] [address]Dr. Farhat Elvis LYMPH # 2.1 103/ul Normal 1.2-3.8 [facility] Comment on above: Performed By: #### C BC ####[facility] Ahzmufunpu9770 [place] [address]Dr. Farhat Leal Lymphocytes/100 WBC (Bld) 34.6 % Normal 20.5-60.0 [facility] Comment on above: Performed By: #### C BC ####[facility] Xuaoklwhut6[address] [place], [place] [address]Dr. Madelynlorri Leal MANUAL DIFF REQ NO Normal [facility] Comment on above: Performed By: #### C BC ####[facility] Vuzmbgqhnm8600 [place] [address]Dr. Farhat Leal MCH (RBC) [Entitic mass] 30.3 pg Normal 25.9-34.0 [facility] Comment on above: Performed By: #### C BC ####[facility] Rgbeochqri6969 [place] [address]Dr. Farhat Leal MCHC (RBC) [Mass/Vol] 33.1 g/dL Normal 29.9-35.2 [facility] Comment on above: Performed By: #### C BC ####[facility] Kwtsswarai44[address] [place], [place] [address]Dr. Madelynlorri Leal MCV (RBC) [Entitic vol] 91.4 fL Normal 80.0-94.0 [facility] Comment on above: Performed By: #### C BC ####[facility] Opspoxvolw0179 [place] [phone]. Farhat Leal MONO # 0.7 103/ul Normal 0.3-0.8 [facility] Comment on above: Performed By: #### C BC ####[facility] Qgtxnmdofn5213 [place] [phone]. Farhat Leal Monocytes/100 WBC (Bld) 11.6 % Normal 1.7-12.0 [facility] Comment on above: Performed By: #### C BC ####[facility] Gjguiswnfy7905 [place] [phone]. Farhat Leal NEUT # 2.9 103/ul Normal 1.4-6.5 [facility] Comment on above: Performed By: #### C BC ####[facility] Afoubsfbrj4002 [place] [phone]. Farhat Leal Neutrophils/100 WBC (Bld) 48.8 % Normal 43.0-75.0 [facility] Comment on above: Performed By: #### C BC ####[facility] Wdldmiknkc9049 [place] [phone]. Farhat Leal Platelet mean volume (Bld) [Entitic vol] 10.9 fL Normal 9.5-13.5 [facility] Comment on above: Performed By: #### C BC ####[facility] Lclbnoibnx3116 [place] [phone]. Farhat Leal PLT 186 103/ul Normal 150-450 [facility] Comment on above: Performed By: #### C BC ####[facility] Nmelrimbvg6090 [place] [phone]. Farhat Leal RBC 3.73 106/ul Critically low 4.70-6.[address] [facility] Comment on above: Performed By: #### C BC ####[facility] Buidmzawez3087 [place] [phone]. Farhat Leal WBC 6.0 103/ul Normal 4.0-11.0 [facility] Comment on above: Performed By: #### C BC ####[facility] Efbrcszwmv7484 [place] [phone]. Farhat Leal PROF 14(COMP METB)on 023 Albumin [Mass/Vol] 2.7 g/dL Critically low 3.4-5.0 [facility] Comment on above: Performed By: #### C MP ####[facility] Xxtsfdxwej2021 [place] [address]Dr. Farhat Leal Albumin/Globulin [Mass ratio] 0.8 {ratio} Normal [facility] Comment on above: Performed By: #### C MP ####[facility] Kdcxdnlyld1687 [place] [address]Dr. Farhat Leal ALP [Catalytic activity/Vol] 60 U/L Normal 46-116 [facility] Comment on above: Performed By: #### C MP ####[facility] Ckcdsyscec2185[address] [place], [place] [address]Dr. Farhat Leal ALT [Catalytic activity/Vol] 17 U/L Normal 16-63 [facility] Comment on above: Performed By: #### C MP ####[facility] Wjdzxwfdgh0117[address] [place], [place] [address]Dr. Farhat Leal Anion gap [Moles/Vol] 9.6 mmol/L Normal [facility] Comment on above: Performed By: #### C MP ####[facility] Kvhohkfnld9255[address] [place], [place] [address]Dr. Farhat Leal AST [Catalytic activity/Vol] 14 U/L Critically low 15-37 [facility] Comment on above: Performed By: #### C MP ####[facility] Hgawwajafs5559[address] [place], [place] [address]Dr. Farhat Leal Bilirubin [Mass/Vol] 0.5 mg/dL Normal 0.2-1.0 [facility] Comment on above: Performed By: #### C MP ####[facility] Qnrkdzasci6288[address] [place], [place] [address]Dr. Farhat Leal Calcium [Mass/Vol] 8.4 mg/dL Critically low 8.5-10.1 [facility] Comment on above: Performed By: #### C MP ####[facility] Tlzajpichh4976 [place] [address]Dr. Farhat Leal Chloride [Moles/Vol] 104 mmol/L Normal 98-107 [facility] Comment on above: Performed By: #### C MP ####[facility] Tmwsryakyl513[address] [place], [place] [address]Dr. Madelynlorri Elvis CO2 [Moles/Vol] 27.2 mmol/L Normal 21.0-32.0 [facility] Comment on above: Performed By: #### C MP ####[facility] Gzrkzicmmk7490[address] [place], [place] [address]Dr. Farhat Leal Creatinine [Mass/Vol] 1.24 mg/dL Normal 0.70-1.30 [facility] Comment on above: Performed By: #### C MP ####[facility] Icbqsievba6424[address] [place], [place] [address]Dr. Farhat Leal EGFR-AF ERITREAN >60 Normal >=60 [facility] Comment on above: Performed By: #### C MP ####[facility] Elxylysqeh7533[address] [place], [place] [address]Dr. Farhat Leal EGFR-NON AF ERITREAN 57 mL/min/1.73m2 Critically low >=60 [facility] Comment on above: Performed By: #### C MP ####[facility] Ukwbupmvgx0768[address] [place], [place] [address]Dr. Farhat Leal Globulin (S) [Mass/Vol] 3.3 g/dL Normal [facility] Comment on above: Performed By: #### C MP ####[facility] Otdwlrvguw3511[address] [place], [place] [address]Dr. Farhat Leal Glucose [Mass/Vol] 275 mg/dL Critically high 74-106 [facility] Comment on above: Performed By: #### C MP ####[facility] Wpwlbmnmhp9939[address] [place], [place] [address]Dr. Farhat Leal Potassium [Moles/Vol] 3.8 mmol/L Normal 3.5-5.1 [facility] Comment on above: Performed By: #### C MP ####[facility] Qadjjpkuqd1509[address] [place], [place] [address]Dr. Farhat Leal Protein [Mass/Vol] 6.0 g/dL Critically low 6.4-8.2 Th e [facility] Comment on above: Performed By: #### C MP ####[facility] Ggjhqlfvct899[address] [place], [place] [address]Dr. Farhat Leal Sodium [Moles/Vol] 137 mmol/L Normal 136-145 [facility] Comment on above: Performed By: #### C MP ####[facility] Lntyrafdmf2955[address] [place], [place] [address]Dr. Farhat Leal Urea nitrogen [Mass/Vol] 54.0 mg/dL Critically high 7.0-18.0 [facility] Comment on above: Performed By: #### C MP ####[facility] Mlysmwnwnn8817[address] [place], [place] [address]Dr. Farhat Leal Urea nitrogen/Creatinine [Mass ratio] 43.5 mg/mg Normal [facility] Comment on above: Performed By: #### C MP ####[facility] Harppnfsjh9046[address] [place], [place] [address]Dr. Farhat Leal PROTIMEon 05-22-2022 INR Coag (PPP) [Relative time] 2.27 {INR} Normal [facility] Comment on above: Performed By: #### P T ####[facility] Dtttrjenve2906[address] [place], [place] [address]Dr. Farhat Leal INR GUIDELINES SEE BELOW Normal [facility] Comment on above: Result Comment: MALINA RED INR: 2.0 - 3.0 CONDITIONS NOT LISTED BELOW 2.5 - 3.5 FOR PROSTHETIC HEART VALVE REPLACEMENT 2.5 - 3.5 RECURRENT THROMBOSIS Performed By: #### P T ####[facility] Klusekfaru5201[address] [place], [place] [address]Dr. Farhat Leal PT Coag (PPP) [Time] 23.0 s Critically high 9.0-11.6 [facility] Comment on above: Performed By: #### P T ####[facility] Omdoakfsom8805[address] [place], [place] [address]Dr. Farhat Leal FK506 (TACROLIMUS) WHOLE BLO ODon 05-19-2022 Tacrolimus (FK506), Blood 7.8 ng/mL Normal 2.0-20.0 [facility] Comment on above: Result Comment: Trou gh (immediately following transplant) 15.0 . Trough (steady state, 2 weeks or more after transplant): 3.0 - 8.0 . Performed by LC-MS/MS technology. Performed By: #### F K506T ####[facility] Uwvngnlksv9728[address] [place], [place] [address]Dr. Farhat Leal CBC AUTO DIFFon 05-15-2022 BASO # 0.0 103/ul Normal 0.0-0.1 [facility] Comment on above: Performed By: #### C BC ####[facility] Ttfnasmaap6618[address] [place], [place] [address]Dr. Farhat Leal Basophils/100 WBC (Bld) 0.4 % Normal 0.2-2.0 [facility] Comment on above: Performed By: #### C BC ####[facility] Ranzlplemt4036[address] [place], [place] [address]Dr. Farhat Leal EO # 0.2 103/ul Normal 0.0-0.7 [facility] Comment on above: Performed By: #### C BC ####[facility] Zxwtthommm7230[address] [place], [place] [address]Dr. Farhat Leal Eosinophils/100 WBC (Bld) 3.0 % Normal 0.9-7.0 [facility] Comment on above: Performed By: #### C BC ####[facility] Elahcbwpid8886[address] [place], [place] [address]Dr. Farhat Leal Erythrocyte distribution width (RBC) [Ratio] 15.7 % Critically high 11.0-15.0 [facility] Comment on above: Performed By: #### C BC ####[facility] Voiyosrhgc988[address] [place], [place] [address]Dr. Farhat Leal Hematocrit (Bld) [Volume fraction] 36.8 % Critically low 42.0-54.0 [facility] Comment on above: Performed By: #### C BC ####[facility] Saszytiodm[address] [place], [place] [address]Dr. Farhat Leal Hemoglobin (Bld) [Mass/Vol] 12.4 g/dL Critically low 14.0-18.0 [facility] Comment on above: Performed By: #### C BC ####[facility] Djrtzdycdh9549 [place] [address]DrSkylar Leal IG # 0.01 10e3/ul Normal 0.00-0.03 [facility] Center Comment on above: Performed By: #### C BC ####[facility] Z[address]mkfhruc[address] [place] [address]DrSkylar Leal IG % 0.1 % Normal 0.0-0.5 [facility] Comment on above: Performed By: #### C BC ####[facility] Sjtwzryvuy[address] [place], [place] [address]DrSkylar Leal LYMPH # 2.4 103/ul Normal 1.2-3.8 [facility] Comment on above: Performed By: #### C BC ####[facility] Ldjkugwwvz[address] [place], [place] [address]DrSkylar Leal Lymphocytes/100 WBC (Bld) 35.6 % Normal 20.5-60.0 [facility] Comment on above: Performed By: #### C BC ####[facility] Zcleizoula[address] [place], [place] [address]DrSkylar Leal MANUAL DIFF REQ NO Normal [facility] Comment on above: Performed By: #### C BC ####[facility] Vqoqmuekox99[address] [place] [address]DrSkylar Leal MCH (RBC) [Entitic mass] 30.1 pg Normal 25.9-34.0 [facility] Comment on above: Performed By: #### C BC ####[facility] Vgenbdqqtr9654 [place] [address]DrSkylar Leal MCHC (RBC) [Mass/Vol] 33.7 g/dL Normal 29.9-35.2 [facility] Comment on above: Performed By: #### C BC ####[facility] Jbdhocpbcw2664 [place] [address]DrSkylar Leal MCV (RBC) [Entitic vol] 89.3 fL Normal 80.0-94.0 [facility] Comment on above: Performed By: #### C BC ####[facility] Wieauagxvg94[address] [place] [address]DrSkylar Farhat Elvis MONO # 0.7 103/ul Normal 0.3-0.8 [facility] Comment on above: Performed By: #### C BC ####[facility] Ltocdwkxho5824 [place] [address]DrSkylar Leal Monocytes/100 WBC (Bld) 10.8 % Normal 1.7-12.0 [facility] Comment on above: Performed By: #### C BC ####[facility] Gxbuxuazhh3361 [place] [address]Dr. Madelynlorri Leal NEUT # 3.4 103/ul Normal 1.4-6.5 [facility] Comment on above: Performed By: #### C BC ####[facility] Etkgzrncvg3115 [place] [address]Dr. Farhat Leal Neutrophils/100 WBC (Bld) 50.1 % Normal 43.0-75.0 [facility] Comment on above: Performed By: #### C BC ####[facility] Rvhlbhtwcn[address] [place], [place] [address]DrSkylar Madelynlorri Leal Platelet mean volume (Bld) [Entitic vol] 10.2 fL Normal 9.5-13.5 [facility] Comment on above: Performed By: #### C BC ####[facility] Cpfgczozev[address] [place], [place] [id number]. Farhat Leal PLT 190 103/ul Normal 150-450 [facility] Comment on above: Performed By: #### C BC ####[facility] Zeuaangnjv366[address] [place], [place] [id number] Leal RBC 4.12 106/ul Critically low 4.70-6.[address] [facility] Comment on above: Performed By: #### C BC ####[facility] Fngaqbixnl2888 [place] [id number] Leal WBC 6.8 103/ul Normal 4.0-11.0 [facility] Comment on above: Performed By: #### C BC ####[facility] Jjyoptheex[address] [place] [address]DrSkylar Leal PROF 14(COMP METB)on 023 Albumin [Mass/Vol] 2.8 g/dL Critically low 3.4-5.0 [facility] Comment on above: Performed By: #### C MP ####[facility] Pwysufdzyh2721 [place] [address]DrSkylar Leal Albumin/Globulin [Mass ratio] 0.9 {ratio} Normal [facility] Comment on above: Performed By: #### C MP ####[facility] Jxalruftil3911[address] [place], [place] [address]Dr. Farhat Leal ALP [Catalytic activity/Vol] 66 U/L Normal 46-116 [facility] Comment on above: Performed By: #### C MP ####[facility] Yhgvmndqxd3616[address] [place], [place] [address]Dr. Farhat Leal ALT [Catalytic activity/Vol] 15 U/L Critically low 16-63 [facility] Comment on above: Performed By: #### C MP ####[facility] Tdvvvvjowm89[address] [place], [place] [address]DrSkylar Leal Anion gap [Moles/Vol] 11.1 mmol/L Normal Th [facility] Comment on above: Performed By: #### C MP ####[facility] Ahbjwsqjxl25[address] [place], [place] [address]DrSkylar Leal AST [Catalytic activity/Vol] 14 U/L Critically low 15-37 [facility] Comment on above: Performed By: #### C MP ####[facility] Tfbvlenxms2459 [place] [address]DrSkylar Leal Bilirubin [Mass/Vol] 0.8 mg/dL Normal 0.2-1.0 [facility] Comment on above: Performed By: #### C MP ####[facility] Kbfzhdkoac6822 [place] [address]DrSkylar Leal Calcium [Mass/Vol] 8.9 mg/dL Normal 8.5-10.1 [facility] Comment on above: Performed By: #### C MP ####[facility] Xifvfalmlx9399 [place] [address]Dr. Farhat Leal Chloride [Moles/Vol] 101 mmol/L Normal 98-107 [facility] Comment on above: Performed By: #### C MP ####[facility] Gjfkvyapmp7105 [place] [phone]. Farhat Leal CO2 [Moles/Vol] 28.2 mmol/L Normal 21.0-32.0 [facility] Comment on above: Performed By: #### C MP ####[facility] Vrkhkuujhs7963 [place] [address]Dr. Farhat Leal Creatinine [Mass/Vol] 1.23 mg/dL Normal 0.70-1.30 [facility] Comment on above: Performed By: #### C MP ####[facility] Xeynxhmyfo6610 [place] [address]Dr. Farhat Leal EGFR-AF ERITREAN >60 Normal >=60 [facility] Comment on above: Performed By: #### C MP ####[facility] Jzlvfoxwhj9660 [place] [address]Dr. Farhat Leal EGFR-NON AF ERITREAN 57 mL/min/1.73m2 Critically low >=60 [facility] Comment on above: Performed By: #### C MP ####[facility] Cnrctixuku[address] [place] [address]Dr. Farhat Leal Globulin (S) [Mass/Vol] 3.2 g/dL Normal [facility] Comment on above: Performed By: #### C MP ####[facility] Fnhbejwtpu1737 [place] [phone]. Farhat Leal Glucose [Mass/Vol] 333 mg/dL Critically high 74-106 [facility] Comment on above: Performed By: #### C MP ####[facility] Xzekkwomhn4040 [place] [address]Dr. Farhat Leal Potassium [Moles/Vol] 4.3 mmol/L Normal 3.5-5.1 [facility] Comment on above: Performed By: #### C MP ####[facility] Ieycaptjuj7980 [place] [address]Dr. Farhat Leal Protein [Mass/Vol] 6.0 g/dL Critically low 6.4-8.2 Th e [facility] Comment on above: Performed By: #### C MP ####[facility] Piiqxzgofo5063 [place] [address]Dr. Farhat Leal Sodium [Moles/Vol] 136 mmol/L Normal 136-145 [facility] Comment on above: Performed By: #### C MP ####[facility] Dooqerixbv502[address] [place], [place] [address]Dr. Farhat Leal Urea nitrogen [Mass/Vol] 58.0 mg/dL Critically high 7.0-18.0 [facility] Comment on above: Performed By: #### C MP ####[facility] Nkpysbkltj26[address] [place], [place] [address]Dr. Farhat Leal Urea nitrogen/Creatinine [Mass ratio] 47.2 mg/mg Normal [facility] Comment on above: Performed By: #### C MP ####[facility] Oxedxqvxrr796[address] [place], [place] [address]Dr. Farhat Leal PROTIMEon 05-13-2022 INR Coag (PPP) [Relative time] 3.51 {INR} Normal [facility] Comment on above: Performed By: #### P T ####[facility] Ihepprpzoj8738[address] [place], [place] [address]Dr. Farhat Lela INR GUIDELINES SEE BELOW Normal [facility] Comment on above: Result Comment: MALINA RED INR: 2.0 - 3.0 CONDITIONS NOT LISTED BELOW 2.5 - 3.5 FOR PROSTHETIC HEART VALVE REPLACEMENT 2.5 - 3.5 RECURRENT THROMBOSIS Performed By: #### P T ####[facility] Qhwoabyawk365[address] [place], [place] [address]Dr. Farhat Leal PT Coag (PPP) [Time] 34.7 s Critically high 9.0-11.6 [facility] Comment on above: Performed By: #### P T ####[facility] Uiwhjfvtgr769[address] [place], [place] [address]Dr. Farhat Leal FK506 (TACROLIMUS) WHOLE BLO ODon 05-11-2022 Tacrolimus (FK506), Blood 14.4 ng/mL Normal 2.0-20.0 [facility] Comment on above: Result Comment: Trou gh (immediately following transplant) 15.0 . Trough (steady state, 2 weeks or more after transplant): 3.0 - 8.0 . Performed by LC-MS/MS technology. Performed By: #### F K506T ####[facility] Knjnovoxjo34[address] [place], [place] [address]Dr. Farhat Leal CBC AUTO DIFFon 05-08-2022 BASO # 0.0 103/ul Normal 0.0-0.1 [facility] Comment on above: Performed By: #### C BC ####[facility] Nplbsxmhxm259[address] [place], [place] [address]Dr. Farhat Leal Basophils/100 WBC (Bld) 0.5 % Normal 0.2-2.0 [facility] Comment on above: Performed By: #### C BC ####[facility] Yhgerzvnad1240[address] [place], [place] [address]Dr. Farhat Leal EO # 0.2 103/ul Normal 0.0-0.7 [facility] Comment on above: Performed By: #### C BC ####[facility] Tnknqqvscz[address] [place], [place] [address]Dr. Farhat Leal Eosinophils/100 WBC (Bld) 2.9 % Normal 0.9-7.0 [facility] Comment on above: Performed By: #### C BC ####[facility] Stkqsotwew3[address] [place], [place] [address]Dr. Farhat Leal Erythrocyte distribution width (RBC) [Ratio] 16.0 % Critically high 11.0-15.0 [facility] Comment on above: Performed By: #### C BC ####[facility] Ryzdnermlh68[address] [place], [place] [address]Dr. Farhat Leal Hematocrit (Bld) [Volume fraction] 35.7 % Critically low 42.0-54.0 [facility] Comment on above: Performed By: #### C BC ####[facility] Fznhhsundh1792 [place] [phone]. Farhat Leal Hemoglobin (Bld) [Mass/Vol] 11.9 g/dL Critically low 14.0-18.0 [facility] Comment on above: Performed By: #### C BC ####[facility] Erizeihjmc6279 [place] [phone]. Farhat Leal IG # 0.03 10e3/ul Normal 0.00-0.03 [facility] Comment on above: Performed By: #### C BC ####[facility] Fnxhawlowe1314 [place] [phone]. Farhat Leal IG % 0.5 % Normal 0.0-0.5 [facility] Comment on above: Performed By: #### C BC ####[facility] Ewdndvqorg1185 [place] [address]Dr. Farhat Leal LYMPH # 2.4 103/ul Normal 1.2-3.8 [facility] Comment on above: Performed By: #### C BC ####[facility] Ygrliphgxs6657 [place] [id number]. Farhat Leal Lymphocytes/100 WBC (Bld) 37.8 % Normal 20.5-60.0 [facility] Comment on above: Performed By: #### C BC ####[facility] Iphjivytem7718 [place] [phone]. Farhat Leal MANUAL DIFF REQ NO Normal [facility] Comment on above: Performed By: #### C BC ####[facility] Oseqlkbpwh[address] [place], [place] [address]Dr. Farhat Leal MCH (RBC) [Entitic mass] 30.4 pg Normal 25.9-34.0 [facility] Comment on above: Performed By: #### C BC ####[facility] Cgffjrjmpu4719 [place] [phone]. Farhat Leal MCHC (RBC) [Mass/Vol] 33.3 g/dL Normal 29.9-35.2 [facility] Comment on above: Performed By: #### C BC ####[facility] Oovqjujyvw6095 [place] [phone]. Farhat Leal MCV (RBC) [Entitic vol] 91.1 fL Normal 80.0-94.0 [facility] Comment on above: Performed By: #### C BC ####[facility] Iidssdcsgz0876 [place] [phone]. Farhat Leal MONO # 0.7 103/ul Normal 0.3-0.8 [facility] Comment on above: Performed By: #### C BC ####[facility] Tqhalkuptu6029 [place] [phone]. Farhat Leal Monocytes/100 WBC (Bld) 11.1 % Normal 1.7-12.0 [facility] Comment on above: Performed By: #### C BC ####[facility] Nyxxxawtol22[address] [place], [place] [address]Dr. Farhat Leal NEUT # 2.9 103/ul Normal 1.4-6.5 [facility] Comment on above: Performed By: #### C BC ####[facility] Pzwzqvupiq[address] [place], [place] [address]Dr. Farhat Leal Neutrophils/100 WBC (Bld) 47.2 % Normal 43.0-75.0 [facility] Comment on above: Performed By: #### C BC ####[facility] Gdiavbnvmn94[address] [place], [place] [address]Dr. Farhat Leal Platelet mean volume (Bld) [Entitic vol] 11.0 fL Normal 9.5-13.5 [facility] Comment on above: Performed By: #### C BC ####[facility] Yhxnuhwkaq[address] [place], [place] [address]Dr. Farhat Leal PLT 191 103/ul Normal 150-450 [facility] Comment on above: Performed By: #### C BC ####[facility] Ndcelskfwy[address] [place], [place] [address]Dr. Farhat Leal RBC 3.92 106/ul Critically low 4.70-6.[address] [facility] Comment on above: Performed By: #### C BC ####[facility] Ricuojpzvp6380 [place] [address]Dr. Farhat Leal WBC 6.2 103/ul Normal 4.0-11.0 [facility] Comment on above: Performed By: #### C BC ####[facility] Jfbqpqcerl3345 [place] [address]Dr. Farhat Leal MAGNESIUMon 05-08-2022 Magnesium [Mass/Vol] 1.9 mg/dL Normal 1.8-2.4 [facility] Comment on above: Performed By: #### P HOS, MG ####[facility] Npyecohnhp7548 [place] [address]Dr. Farhat Leal PHOSPHORUSon 05-08-2022 Phosphate [Mass/Vol] 4.5 mg/dL Normal 2.6-4.7 [facility] Comment on above: Performed By: #### P HOS, MG ####[facility] Ospdjagpqq[address] [place], [place] [address]Dr. Farhat Leal PROF 14(COMP METB)on 023 Albumin [Mass/Vol] 2.9 g/dL Critically low 3.4-5.0 [facility] Comment on above: Performed By: #### C MP ####[facility] Wrqxayiboj902[address] [place], [place] [address]Dr. Farhat Leal Albumin/Globulin [Mass ratio] 0.9 {ratio} Normal [facility] Comment on above: Performed By: #### C MP ####[facility] Gihkdrzvlv4[address] [place], [place] [address]Dr. Farhat Leal ALP [Catalytic activity/Vol] 70 U/L Normal 46-116 [facility] Comment on above: Performed By: #### C MP ####[facility] Qdettnztmn6740 [place] [address]Dr. Farhat Leal ALT [Catalytic activity/Vol] 13 U/L Critically low 16-63 [facility] Comment on above: Performed By: #### C MP ####[facility] Lgwuvkastq7143 [place] [address]Dr. Farhat Leal Anion gap [Moles/Vol] 14.6 mmol/L Normal Th [facility] Comment on above: Performed By: #### C MP ####[facility] Svmducecbw8701 [place] [address]Dr. Farhat Leal AST [Catalytic activity/Vol] 17 U/L Normal 15-37 [facility] Comment on above: Performed By: #### C MP ####[facility] Uzpdikuxex8283 [place] [phone]. Farhat Leal Bilirubin [Mass/Vol] 0.8 mg/dL Normal 0.2-1.0 [facility] Comment on above: Performed By: #### C MP ####[facility] Oiejyurvfi7288 [place] [address]Dr. Farhat Leal Calcium [Mass/Vol] 8.9 mg/dL Normal 8.5-10.1 [facility] Comment on above: Performed By: #### C MP ####[facility] Jfdgmgvtrc059[address] [place], [place] [address]Dr. Farhat Leal Chloride [Moles/Vol] 102 mmol/L Normal 98-107 [facility] Comment on above: Performed By: #### C MP ####[facility] Ipaljlzqrs040[address] [place], [place] [address]Dr. Farhat Leal CO2 [Moles/Vol] 22.9 mmol/L Normal 21.0-32.0 [facility] Comment on above: Performed By: #### C MP ####[facility] Fuwyndyppe649[address] [place], [place] [address]Dr. Farhat Leal Creatinine [Mass/Vol] 1.20 mg/dL Normal 0.70-1.30 [facility] Comment on above: Performed By: #### C MP ####[facility] Oxahizmptl7200 [place] [address]Dr. Farhat Leal EGFR-AF ERITREAN >60 Normal >=60 [facility] Comment on above: Performed By: #### C MP ####[facility] Dkvvhmwuox1082 [place] [address]Dr. Farhat Leal EGFR-NON AF ERITREAN 59 mL/min/1.73m2 Critically low >=60 [facility] Comment on above: Performed By: #### C MP ####[facility] Fjhlqovlkl1382 [place] [phone]. Farhat Leal Globulin (S) [Mass/Vol] 3.1 g/dL Normal [facility] Comment on above: Performed By: #### C MP ####[facility] Oxgdmkvegb6045 [place] [phone]. Farhat Leal Glucose [Mass/Vol] 447 mg/dL Critically high 74-106 [facility] Comment on above: Performed By: #### C MP ####[facility] Alzmfclccc6793 [place] [phone]. Farhat Leal Potassium [Moles/Vol] 4.5 mmol/L Normal 3.5-5.1 [facility] Comment on above: Performed By: #### C MP ####[facility] Fnzexbbhxu3038 [place] [address]Dr. Farhat Leal Protein [Mass/Vol] 6.0 g/dL Critically low 6.4-8.2 Th [facility] Comment on above: Performed By: #### C MP ####[facility] Uovsmwrage078[address] [place], [place] [address]Dr. Farhat Leal Sodium [Moles/Vol] 135 mmol/L Critically low 136-145 Th [facility] Comment on above: Performed By: #### C MP ####[facility] Eyuzbdrppz8815 [place] [address]Dr. Farhat Leal Urea nitrogen [Mass/Vol] 52.0 mg/dL Critically high 7.0-18.0 [facility] Comment on above: Performed By: #### C MP ####[facility] Hwssnydgss2509 [place] [address]Dr. Farhat Leal Urea nitrogen/Creatinine [Mass ratio] 43.3 mg/mg Normal [facility] Comment on above: Performed By: #### C MP ####[facility] Mdzuqgtnnd5930 [place] [address]Dr. Farhat Elvis PROTIMEon 05-06-2022 INR Coag (PPP) [Relative time] 2.25 {INR} Normal [facility] Comment on above: Performed By: #### P T ####[facility] Rvykikuuov8906 [place] [address]DrSkylar Lael INR GUIDELINES SEE BELOW Normal [facility] Comment on above: Result Comment: MALINA RED INR: 2.0 - 3.0 CONDITIONS NOT LISTED BELOW 2.5 - 3.5 FOR PROSTHETIC HEART VALVE REPLACEMENT 2.5 - 3.5 RECURRENT THROMBOSIS Performed By: #### P T ####[facility] Bzfozywwis85[address] [place], [place] [address]Dr. Farhat Leal PT Coag (PPP) [Time] 22.8 s Critically high 9.0-11.6 [facility] Comment on above: Performed By: #### P T ####[facility] Wnhkhnfopb33[address] [place], [place] [address]Dr. Farhat Leal FK506 (TACROLIMUS) WHOLE BLO ODon 05-04-2022 Tacrolimus (FK506), Blood 10.4 ng/mL Normal 2.0-20.0 [facility] Comment on above: Result Comment: Trou gh (immediately following transplant) 15.0 . Trough (steady state, 2 weeks or more after transplant): 3.0 - 8.0 . Performed by LC-MS/MS technology. Performed By: #### F K506T ####[facility] Fwqulsasrr99[address] [place], [place] [address]DrSkylar Leal CBC AUTO DIFFon 05-01-2022 BASO # 0.1 103/ul Normal 0.0-0.1 [facility] Comment on above: Performed By: #### C BC ####[facility] Ygoymngbnv303[address] [place], [place] [address]Dr. Farhat Leal Basophils/100 WBC (Bld) 0.7 % Normal 0.2-2.0 [facility] Comment on above: Performed By: #### C BC ####[facility] Ippasosxvp7025[address] [place], [place] [address]Dr. Farhat Leal EO # 0.2 103/ul Normal 0.0-0.7 [facility] Comment on above: Performed By: #### C BC ####[facility] Aepdgpuvga2291 [place] [phone]. Farhat Leal Eosinophils/100 WBC (Bld) 3.2 % Normal 0.9-7.0 [facility] Comment on above: Performed By: #### C BC ####[facility] Aejzjfqpgd8936 [place] [phone]. Farhat Leal Erythrocyte distribution width (RBC) [Ratio] 16.4 % Critically high 11.0-15.0 [facility] Comment on above: Performed By: #### C BC ####[facility] Olatjakgls364[address] [place], [place] [address]Dr. Farhat Leal Hematocrit (Bld) [Volume fraction] 35.1 % Critically low 42.0-54.0 [facility] Comment on above: Performed By: #### C BC ####[facility] Htmcgkxgwr0[address] [place], [place] [address]Dr. Farhat Leal Hemoglobin (Bld) [Mass/Vol] 11.6 g/dL Critically low 14.0-18.0 [facility] Comment on above: Performed By: #### C BC ####[facility] Gumcdshotj34[address] [place], [place] [address]Dr. Farhat Leal IG # 0.03 10e3/ul Normal 0.00-0.03 [facility] Comment on above: Performed By: #### C BC ####[facility] Dijwwywqqj45[address] [place], [place] [address]Dr. Farhat Leal IG % 0.4 % Normal 0.0-0.5 [facility] Comment on above: Performed By: #### C BC ####[facility] Ldgspwauhc[address] [place] [place], [place] [address]Dr. Farhat Leal LYMPH # 2.4 103/ul Normal 1.2-3.8 [facility] Comment on above: Performed By: #### C BC ####[facility] Bqpbuusomx[address] [place], [place] [address]Dr. Farhat Leal Lymphocytes/100 WBC (Bld) 35.1 % Normal 20.5-60.0 [facility] Comment on above: Performed By: #### C BC ####[facility] Ttmdpunior12[address] [place] [id number]. Farhat Leal MANUAL DIFF REQ NO Normal [facility] Comment on above: Performed By: #### C BC ####[facility] Clhpgutfpi8307 [place] [phone]. Farhat Leal MCH (RBC) [Entitic mass] 29.4 pg Normal 25.9-34.0 [facility] Comment on above: Performed By: #### C BC ####[facility] Qxqsimqlmj027[address] [place], [place] [address]Dr. Farhat Leal MCHC (RBC) [Mass/Vol] 33.0 g/dL Normal 29.9-35.2 [facility] Comment on above: Performed By: #### C BC ####[facility] Twaxeyrlyw[address] [place], [place] [address]Dr. Farhat Leal MCV (RBC) [Entitic vol] 88.9 fL Normal 80.0-94.0 [facility] Comment on above: Performed By: #### C BC ####[facility] Aekbjrmhok[address] [place], [place] [address]Dr. Farhat Leal MONO # 0.7 103/ul Normal 0.3-0.8 [facility] Comment on above: Performed By: #### C BC ####[facility] Djqkweuucm257[address] [place], [place] [address]Dr. Farhat Elvis Monocytes/100 WBC (Bld) 9.6 % Normal 1.7-12.0 [facility] Comment on above: Performed By: #### C BC ####[facility] Utpvwjnoml[address] [place], [place] [address]Dr. Farhat Leal NEUT # 3.5 103/ul Normal 1.4-6.5 [facility] Comment on above: Performed By: #### C BC ####[facility] Ryauglsvbq4[address] [place], [place] [address]Dr. Farhat Leal Neutrophils/100 WBC (Bld) 51.0 % Normal 43.0-75.0 [facility] Comment on above: Performed By: #### C BC ####[facility] Nmhdmfgwtn3167 [place] [id number]. Farhat Leal Platelet mean volume (Bld) [Entitic vol] 10.3 fL Normal 9.5-13.5 [facility] Comment on above: Performed By: #### C BC ####[facility] Gmnrhfywex0810 [place] [phone]. Farhat Leal PLT 184 103/ul Normal 150-450 [facility] Comment on above: Performed By: #### C BC ####[facility] Qyfluxpioy2553 [place] [phone]. Farhat Leal RBC 3.95 106/ul Critically low 4.70-6.10 [facility] Comment on above: Performed By: #### C BC ####[facility] Kbpsuajzww7[address] [place] [address]Dr. Farhat Leal WBC 7.0 103/ul Normal 4.0-11.0 [facility] Comment on above: Performed By: #### C BC ####[facility] Xgrhyurfvp0524 [place] [address]Dr. Farhat Leal PROF 14(COMP METB)on 023 Albumin [Mass/Vol] 2.6 g/dL Critically low 3.4-5.0 [facility] Comment on above: Performed By: #### C MP ####[facility] Tgcerttnmi1093 [place] [address]Dr. Farhat Leal Albumin/Globulin [Mass ratio] 0.9 {ratio} Normal [facility] Comment on above: Performed By: #### C MP ####[facility] Qcjindxlww6210 [place] [address]Dr. Farhat Leal ALP [Catalytic activity/Vol] 53 U/L Normal 46-116 [facility] Comment on above: Performed By: #### C MP ####[facility] Ehflsszwfo0107 [place] [address]Dr. Farhat Leal ALT [Catalytic activity/Vol] 17 U/L Normal 16-63 [facility] Comment on above: Performed By: #### C MP ####[facility] Arseejsqzk4717 [place] [phone]. Farhat Leal Anion gap [Moles/Vol] 10.0 mmol/L Normal [facility] Comment on above: Performed By: #### C MP ####[facility] Mjfqpdlcab5466 [place] [phone]. Farhat Leal AST [Catalytic activity/Vol] 19 U/L Normal 15-37 [facility] Comment on above: Performed By: #### C MP ####[facility] Vvnopulqva2852 [place] [phone]. Farhat Leal Bilirubin [Mass/Vol] 0.5 mg/dL Normal 0.2-1.0 [facility] Comment on above: Performed By: #### C MP ####[facility] Prngcooyik[address] [place], [place] [id number]. Farhat Leal Calcium [Mass/Vol] 8.4 mg/dL Critically low 8.5-10.1 [facility] Comment on above: Performed By: #### C MP ####[facility] Pieytkrtdb0921 [place] [phone]. Farhat Leal Chloride [Moles/Vol] 108 mmol/L Critically high 98-107 [facility] Comment on above: Performed By: #### C MP ####[facility] Utjpojrpgq[address] [place], [place] [phone]. Farhat Leal CO2 [Moles/Vol] 26.9 mmol/L Normal 21.0-32.0 [facility] Comment on above: Performed By: #### C MP ####[facility] Atfrplpflw7329 [place] [phone]. Farhat Leal Creatinine [Mass/Vol] 1.20 mg/dL Normal 0.70-1.30 [facility] Comment on above: Performed By: #### C MP ####[facility] Mshjmaoapi7562 [place] [phone]. Farhat Leal EGFR-AF ERITREAN >60 Normal >=60 [facility] Comment on above: Performed By: #### C MP ####[facility] Zotyrnjdof3931 [place] [phone]. Farhat Leal EGFR-NON AF ERITREAN 59 mL/min/1.73m2 Critically low >=60 [facility] Comment on above: Performed By: #### C MP ####[facility] Mwycopyakj3371 [place] [address]Dr. Farhat Leal Globulin (S) [Mass/Vol] 3.0 g/dL Normal [facility] Comment on above: Performed By: #### C MP ####[facility] Utjsvaxxqt3201 [place] [address]Dr. Farhat Leal Glucose [Mass/Vol] 213 mg/dL Critically high 74-106 [facility] Comment on above: Performed By: #### C MP ####[facility] Pznkdofluo3444 [place] [address]Dr. Farhat Leal Potassium [Moles/Vol] 3.9 mmol/L Normal 3.5-5.1 [facility] Comment on above: Performed By: #### C MP ####[facility] Ngniqpftqj9511 [place] [address]Dr. Farhat Leal Protein [Mass/Vol] 5.6 g/dL Critically low 6.4-8.2 [facility] Comment on above: Performed By: #### C MP ####[facility] Okeyzwfrun328[address] [place], [place] [address]Dr. Farhat Leal Sodium [Moles/Vol] 141 mmol/L Normal 136-145 [facility] Comment on above: Performed By: #### C MP ####[facility] Nrbcdwargg0724 [place] [address]Dr. Farhat Leal Urea nitrogen [Mass/Vol] 61.0 mg/dL Critically high 7.0-18.0 [facility] Comment on above: Performed By: #### C MP ####[facility] Quyfuhoyhg9092 [place] [address]Dr. Farhat Leal Urea nitrogen/Creatinine [Mass ratio] 50.8 mg/mg Normal [facility] Comment on above: Performed By: #### C MP ####[facility] Qyefqvzsfr889[address] [place], [place] [address]Dr. Farhat Elvis FK506 (TACROLIMUS) WHOLE BLO ODon 04-27-2022 Tacrolimus (FK506), Blood 16.5 ng/mL Normal 2.0-20.0 [facility] Comment on above: Result Comment: Trou gh (immediately following transplant) 15.0 . Trough (steady state, 2 weeks or more after transplant): 3.0 - 8.0 . Performed by LC-MS/MS technology. Performed By: #### F K506T ####[facility] Omywqrprzj13[address] [place], [place] [address]Dr. Farhat Elvis CBC AUTO DIFFon 04-24-2022 BASO # 0.0 103/ul Normal 0.0-0.1 [facility] Comment on above: Performed By: #### C BC ####[facility] Khjtcyzmxm33[address] [place], [place] [address]Dr. Farhat Leal Basophils/100 WBC (Bld) 0.5 % Normal 0.2-2.0 [facility] Comment on above: Performed By: #### C BC ####[facility] Qkkffzqowa95[address] [place], [place] [address]Dr. Farhat Leal EO # 0.2 103/ul Normal 0.0-0.7 [facility] Comment on above: Performed By: #### C BC ####[facility] Jgoacottxs137[address] [place], [place] [address]Dr. Farhat Leal Eosinophils/100 WBC (Bld) 3.1 % Normal 0.9-7.0 [facility] Comment on above: Performed By: #### C BC ####[facility] Lqiexoyazh[address] [place], [place] [address]Dr. Farhat Leal Erythrocyte distribution width (RBC) [Ratio] 16.3 % Critically high 11.0-15.0 [facility] Comment on above: Performed By: #### C BC ####[facility] Pijphfadwm2120[address] [place], [place] [address]Dr. Farhat Leal Hematocrit (Bld) [Volume fraction] 34.0 % Critically low 42.0-54.0 [facility] Comment on above: Performed By: #### C BC ####[facility] Lblqgvcbdh2703 [place] [phone]. Farhat Leal Hemoglobin (Bld) [Mass/Vol] 11.6 g/dL Critically low 14.0-18.0 [facility] Comment on above: Performed By: #### C BC ####[facility] Nemncyfcig5541 [place] [address]Dr. Farhat Leal IG # 0.02 10e3/ul Normal 0.00-0.03 [facility] Comment on above: Performed By: #### C BC ####[facility] Ryuvtdsfcq8340[address] [place], [place] [address]Dr. Farhat Leal IG % 0.4 % Normal 0.0-0.5 [facility] Comment on above: Performed By: #### C BC ####[facility] Obnzqdvsxt6[address] [place], [place] [address]Dr. Farhat Leal LYMPH # 2.2 103/ul Normal 1.2-3.8 [facility] Comment on above: Performed By: #### C BC ####[facility] Anhjwxjpmj45[address] [place], [place] [address]Dr. Farhat Leal Lymphocytes/100 WBC (Bld) 38.8 % Normal 20.5-60.0 [facility] Comment on above: Performed By: #### C BC ####[facility] Tmnqesmoiq[address] [place], [place] [address]Dr. Farhat Leal MANUAL DIFF REQ NO Normal [facility] Comment on above: Performed By: #### C BC ####[facility] Wpkvujlius40[address] [place], [place] [address]Dr. Farhat Leal MCH (RBC) [Entitic mass] 30.1 pg Normal 25.9-34.0 [facility] Comment on above: Performed By: #### C BC ####[facility] Fgwmakxwzw[address] [place], [place] [address]Dr. Farhat Leal MCHC (RBC) [Mass/Vol] 34.1 g/dL Normal 29.9-35.2 [facility] Comment on above: Performed By: #### C BC ####[facility] Njsoyuvmbv1763 [place] [phone]. Farhat Leal MCV (RBC) [Entitic vol] 88.1 fL Normal 80.0-94.0 [facility] Comment on above: Performed By: #### C BC ####[facility] Dxobdwfabi3367 [place] [phone]. Farhat Leal MONO # 0.6 103/ul Normal 0.3-0.8 [facility] Comment on above: Performed By: #### C BC ####[facility] Aacgssrmwi9097 [place] [phone]. Farhat Leal Monocytes/100 WBC (Bld) 10.8 % Normal 1.7-12.0 [facility] Comment on above: Performed By: #### C BC ####[facility] Amktwournc[address] [place], [place] [phone]. Farhat Leal NEUT # 2.6 103/ul Normal 1.4-6.5 [facility] Comment on above: Performed By: #### C BC ####[facility] Gqasxugylv[address] [place], [place] [address]Dr. Farhat Leal Neutrophils/100 WBC (Bld) 46.4 % Normal 43.0-75.0 [facility] Comment on above: Performed By: #### C BC ####[facility] Atacjzkyno9187 [place] [phone]. Farhat Leal Platelet mean volume (Bld) [Entitic vol] 10.9 fL Normal 9.5-13.5 [facility] Comment on above: Performed By: #### C BC ####[facility] Yztrtehauk6316 [place] [phone]. Farhat Leal PLT 159 103/ul Normal 150-450 [facility] Comment on above: Performed By: #### C BC ####[facility] Ckpgwnvhlm9536 [place] [phone]. Farhat Leal RBC 3.86 106/ul Critically low 4.70-6.[address] [facility] Comment on above: Performed By: #### C BC ####[facility] Gnvntshrzs0396 [place] [address]Dr. Farhat Leal WBC 5.6 103/ul Normal 4.0-11.0 [facility] Comment on above: Performed By: #### C BC ####[facility] Ogdtsfuewp9710 [place] [address]DrSkylar Leal PROTIMEon 04-24-2022 INR Coag (PPP) [Relative time] 3.23 {INR} Normal [facility] Comment on above: Performed By: #### P T ####[facility] Xfowvyffqd12[address] [place], [place] [address]DrSkylar Leal INR GUIDELINES SEE BELOW Normal [facility] Comment on above: Result Comment: MALINA RED INR: 2.0 - 3.0 CONDITIONS NOT LISTED BELOW 2.5 - 3.5 FOR PROSTHETIC HEART VALVE REPLACEMENT 2.5 - 3.5 RECURRENT THROMBOSIS Performed By: #### P T ####[facility] Effvkwkrrz467[address] [place], [place] [address]DrSkylar Leal PT Coag (PPP) [Time] 32.0 s Critically high 9.0-11.6 [facility] Comment on above: Performed By: #### P T ####[facility] Ovjsrykpqw[address] [place], [place] [address]DrSkylar Leal FK506 (TACROLIMUS) WHOLE BLO ODon 04-20-2022 Tacrolimus (FK506), Blood 13.9 ng/mL Normal 2.0-20.0 [facility] Comment on above: Result Comment: Trou gh (immediately following transplant) 15.0 . Trough (steady state, 2 weeks or more after transplant): 3.0 - 8.0 . Performed by LC-MS/MS technology. Performed By: #### F K506T ####[facility] Lfgkkaicqq[address] [place], [place] [address]DrSkylar Leal CBC AUTO DIFFon 04-17-2022 BASO # 0.0 103/ul Normal 0.0-0.1 [facility] Comment on above: Performed By: #### C BC ####[facility] Rtqfqpsrmg[address] [place], [place] [address]DrSkylar Leal Basophils/100 WBC (Bld) 0.4 % Normal 0.2-2.0 [facility] Comment on above: Performed By: #### C BC ####[facility] Wcglqpidap13[address] [place], [place] [address]Dr. Farhat Leal EO # 0.2 103/ul Normal 0.0-0.7 [facility] Comment on above: Performed By: #### C BC ####[facility] Feekwfvsuk[address] [place], [place] [address]Dr. Farhat Leal Eosinophils/100 WBC (Bld) 2.8 % Normal 0.9-7.0 [facility] Comment on above: Performed By: #### C BC ####[facility] Lfezedyfdw[address] [place], [place] [address]Dr. Farhat Leal Erythrocyte distribution width (RBC) [Ratio] 16.1 % Critically high 11.0-15.0 [facility] Comment on above: Performed By: #### C BC ####[facility] [address]jgwfmoxks[address] [place], [place] [address]Dr. Farhat Leal Hematocrit (Bld) [Volume fraction] 35.7 % Critically low 42.0-54.0 [facility] Comment on above: Performed By: #### C BC ####[facility] Yejfkzbkpj26[address] [place], [place] [address]Dr. Farhat Leal Hemoglobin (Bld) [Mass/Vol] 12.2 g/dL Critically low 14.0-18.0 [facility] Comment on above: Performed By: #### C BC ####[facility] Ywxeqkhtsz[address] [place], [place] [address]Dr. Farhat Leal IG # 0.03 10e3/ul Normal 0.00-0.03 [facility] Comment on above: Performed By: #### C BC ####[facility] K[address]zjvnvvg[address] [place], [place] [address]Dr. Farhat Leal IG % 0.4 % Normal 0.0-0.5 [facility] Comment on above: Performed By: #### C BC ####[facility] Gpfnwduuwf[address] [place], [place] [address]Dr. Farhat Leal LYMPH # 2.4 103/ul Normal 1.2-3.8 [facility] Comment on above: Performed By: #### C BC ####[facility] Lyxvqqzvuo6[address] [place] [phone]. Madelynlorri Leal Lymphocytes/100 WBC (Bld) 36.1 % Normal 20.5-60.0 [facility] Comment on above: Performed By: #### C BC ####[facility] Srxlccsweh6[address] [place] [address]Dr. Farhat Leal MANUAL DIFF REQ NO Normal [facility] Comment on above: Performed By: #### C BC ####[facility] Keoqgrzxsf5619 [place] [address]Dr. Farhat Leal MCH (RBC) [Entitic mass] 30.3 pg Normal 25.9-34.0 [facility] Comment on above: Performed By: #### C BC ####[facility] Klpwgmbyas8131 [place] [address]Dr. Farhat Leal MCHC (RBC) [Mass/Vol] 34.2 g/dL Normal 29.9-35.2 [facility] Comment on above: Performed By: #### C BC ####[facility] Dltjceitot6503 [place] [address]Dr. Farhat Leal MCV (RBC) [Entitic vol] 88.6 fL Normal 80.0-94.0 [facility] Comment on above: Performed By: #### C BC ####[facility] Nsurlifkgj6064 [place] [address]Dr. Farhat Leal MONO # 0.7 103/ul Normal 0.3-0.8 [facility] Comment on above: Performed By: #### C BC ####[facility] Kapeqqzfmz1218 [place] [address]Dr. Farhat Leal Monocytes/100 WBC (Bld) 10.1 % Normal 1.7-12.0 [facility] Comment on above: Performed By: #### C BC ####[facility] Ehykskmrzg9548 [place] [address]Dr. Farhat Leal NEUT # 3.4 103/ul Normal 1.4-6.5 [facility] Comment on above: Performed By: #### C BC ####[facility] Fqubweiwep1432 [place] [address]Dr. Farhat Leal Neutrophils/100 WBC (Bld) 50.2 % Normal 43.0-75.0 [facility] Comment on above: Performed By: #### C BC ####[facility] Fguingsyll1122 [place] [address]Dr. Farhat Elvis Platelet mean volume (Bld) [Entitic vol] 11.8 fL Normal 9.5-13.5 [facility] Comment on above: Performed By: #### C BC ####[facility] Idqijhvyww1366 [place] [address]Dr. Farhat Elvis PLT 193 103/ul Normal 150-450 [facility] Comment on above: Performed By: #### C BC ####[facility] Rqhpewnmcr7130 [place] [address]Dr. Farhat Elvis RBC 4.03 106/ul Critically low 4.70-6.[address] [facility] Comment on above: Performed By: #### C BC ####[facility] Kmbgvtaddh[address] [place], [place] [address]Dr. Farhat Elvis WBC 6.8 103/ul Normal 4.0-11.0 [facility] Comment on above: Performed By: #### C BC ####[facility] Xssxhrppip026[address] [place], [place] [address]DrSkylar Leal PROF 14(COMP METB)on 023 Albumin [Mass/Vol] 2.9 g/dL Critically low 3.4-5.0 [facility] Comment on above: Performed By: #### C MP ####[facility] Hpckxexzwe[address] [place], [place] [address]Dr. Farhat Leal Albumin/Globulin [Mass ratio] 0.9 {ratio} Normal [facility] Comment on above: Performed By: #### C MP ####[facility] Dcksizgjwg[address] [place], [place] [address]Dr. Farhat Leal ALP [Catalytic activity/Vol] 67 U/L Normal 46-116 [facility] Comment on above: Performed By: #### C MP ####[facility] Uqokhwjjpq0332 [place] [address]Dr. Farhat Leal ALT [Catalytic activity/Vol] 15 U/L Critically low 16-63 [facility] Comment on above: Performed By: #### C MP ####[facility] Tswecnimnu5500 [place] [address]Dr. Farhat Elvis Anion gap [Moles/Vol] 10.8 mmol/L Normal Th e [facility] Comment on above: Performed By: #### C MP ####[facility] Nkmwmkynxt5701 [place] [address]Dr. Farhat Elvis AST [Catalytic activity/Vol] 23 U/L Normal 15-37 [facility] Comment on above: Performed By: #### C MP ####[facility] Wqrhkdwndy6580 [place] [address]Dr. Farhat Elvis Bilirubin [Mass/Vol] 0.6 mg/dL Normal 0.2-1.0 [facility] Comment on above: Performed By: #### C MP ####[facility] Fojkgjfibl3714 [place] [address]Dr. Farhat Elvis Calcium [Mass/Vol] 8.7 mg/dL Normal 8.5-10.1 [facility] Comment on above: Performed By: #### C MP ####[facility] Rzptribqmi8814 [place] [address]Dr. Farhat Elvis Chloride [Moles/Vol] 105 mmol/L Normal 98-107 [facility] Comment on above: Performed By: #### C MP ####[facility] Uiujatazke8875 [place] [address]Dr. Farhat Leal CO2 [Moles/Vol] 29.5 mmol/L Normal 21.0-32.0 [facility] Comment on above: Performed By: #### C MP ####[facility] Npfquzsncn0098 [place] [address]Dr. Farhat Leal Creatinine [Mass/Vol] 1.37 mg/dL Critically high 0.70-1.30 [facility] Comment on above: Performed By: #### C MP ####[facility] Szluigwafo6864 [place] [phone]. Farhat Elvis EGFR-AF ERITREAN >60 Normal >=60 [facility] Comment on above: Performed By: #### C MP ####[facility] Xhpldkemzg6777 [place] [phone]. Farhat Leal EGFR-NON AF ERITREAN 50 mL/min/1.73m2 Critically low >=60 [facility] Comment on above: Performed By: #### C MP ####[facility] Gpmmecjory[address] [place] [address]Dr. Farhat Leal Globulin (S) [Mass/Vol] 3.1 g/dL Normal [facility] Comment on above: Performed By: #### C MP ####[facility] [address] [place] [id number]. Farhat Leal Glucose [Mass/Vol] 203 mg/dL Critically high 74-106 [facility] Comment on above: Performed By: #### C MP ####[facility] Eyewjpnnmg[address] [place] [id number]. Farhat Leal Potassium [Moles/Vol] 4.3 mmol/L Normal 3.5-5.1 [facility] Comment on above: Performed By: #### C MP ####[facility] M[address]ogmlgyz4[address] [place] [id number]. Farhat Leal Protein [Mass/Vol] 6.0 g/dL Critically low 6.4-8.2 Th [facility] Comment on above: Performed By: #### C MP ####[facility] Ajehxectxh[address] [place] [id number]. Farhat Leal Sodium [Moles/Vol] 141 mmol/L Normal 136-145 [facility] Comment on above: Performed By: #### C MP ####[facility] Aneffhilsd[address] [place] [id number]. Farhat Leal Urea nitrogen [Mass/Vol] 65.0 mg/dL Critically high 7.0-18.0 [facility] Comment on above: Performed By: #### C MP ####[facility] [address] [place] [address]DrSkylar Leal Urea nitrogen/Creatinine [Mass ratio] 47.4 mg/mg Normal [facility] Comment on above: Performed By: #### C MP ####[facility] Hlfnxmdqwm75[address] [place] [id number] Leal PROTIMEon 04-15-2022 INR Coag (PPP) [Relative time] 3.88 {INR} Normal [facility] Comment on above: Performed By: #### P T ####[facility] Hgidyfzsit[address] [place] [address]DrSkylar Leal INR GUIDELINES SEE BELOW Normal [facility] Comment on above: Result Comment: MALINA RED INR: 2.0 - 3.0 CONDITIONS NOT LISTED BELOW 2.5 - 3.5 FOR PROSTHETIC HEART VALVE REPLACEMENT 2.5 - 3.5 RECURRENT THROMBOSIS Performed By: #### P T ####[facility] Irx[address] [place] [id number]. Farhat Leal PT Coag (PPP) [Time] 38.1 s Critically high 9.0-11.6 [facility] Comment on above: Performed By: #### P T ####[facility] Ekuzbggful[address] [place] [phone]. Farhat Leal Glucose Glucometer (dC) [M ass/Vol]Ordered By: Sadia Aguilar on 04-14-2022 Glucose [Mass/Vol] 162 mg/dL [facility] Comment on above: Random Glucose Refer ence Range is dependent on time and content of last meal. Glucose of more than 200 mg/dL in a nonstressed, ambulatory subject supports the diagnosis of Diabetes Mellitus. Glucose Poct Glucometerson 0 04-14-2022 Commemt1 Glu2: Cleaned Meter Normal [facility] Comment on above: Result Comment: PERF ORMED BY: [facility] [address] [place] [address] PATHOLOGIST HOME BASED ASSISTANT JOSE F ELLIOTT M.D. Performed By: #### G LULS #### Point of Care testing , Glucose [Mass/Vol] 162 mg/dL Normal [facility] Comment on above: Result Comment: [facility] Glucose Reference Range is dependent on time and content of last meal. Glucose of more than 200 mg/dL in a nonstressed, ambulatory subject supports the diagnosis of Diabetes Mellitus. Performed By: #### G LULS #### Point of Care testing , No Panel InformationOrdered By: Sadia Aguilar on 04-14-2022 Bedside Glucose Comment Glu2: cleaned meter [facility] MAGNESIUMon 04-13-2022 Magnesium [Mass/Vol] 1.7 mg/dL Critically low 1.8-2.4 [facility] Comment on above: Performed By: #### M HENRI Manzo ####[facility] [address] [place] [address]Dr. Farhat Leal PHOSPHORUSon 04-13-2022 Phosphate [Mass/Vol] 4.8 mg/dL Critically high 2.6-4.7 [facility] Comment on above: Performed By: #### M Anais PHOWard ####[facility] X[address]wiqqqsg[address] [place] [address]Dr. Farhat Leal PROTIMEon 04-13-2022 INR Coag (PPP) [Relative time] 3.16 {INR} Normal [facility] Comment on above: Performed By: #### P T ####[facility] [address]kpcnklqpo[address] [place] [address]DrSkylar Leal INR GUIDELINES SEE BELOW Normal [facility] Comment on above: Result Comment: MALINA RED INR: 2.0 - 3.0 CONDITIONS NOT LISTED BELOW 2.5 - 3.5 FOR PROSTHETIC HEART VALVE REPLACEMENT 2.5 - 3.5 RECURRENT THROMBOSIS Performed By: #### P T ####[facility] J[address]xowxsjb3[address] [place] [address]DrSkylar Leal PT Coag (PPP) [Time] 31.4 s Critically high 9.0-11.6 [facility] Comment on above: Performed By: #### P T ####[facility] [address] [place], [place] [address]Rv. Farhat Leal MAGNESIUMon 03-11-2022 Magnesium [Mass/Vol] 1.6 mg/dL Critically low 1.8-2.4 [facility] Comment on above: Performed By: #### M G, PHOS ####[facility] [address]qu24[address] [place], [place] [address]Hl. Farhat Leal PHOSPHORUSon 03-11-2022 Phosphate [Mass/Vol] 5.3 mg/dL Critically high 2.6-4.7 [facility] Comment on above: Performed By: #### M G, PHOS ####[facility] X[address]mxnsnpk[address] [place] [phone]. Farhat Leal CNOVon 02-26-2022 CNOV Office Visit (HONEY ) ALEX ALMONTE ([id number]) 1945 M TRN Date Time Provider Department 02/26/22 3:00 PM HINA PETERSON During your visit today, we recorded the following information about you: Temperature Pulse Blood pressure 96.6 degrees 75/minute 88/75 Hina Peterson MD, MD 02/26/2022 4:31 PM Formerly [facility] Heart , Vascular and Thoracic [place] DEPARTMENT OF VASCULAR SURGERY OUTPATIENT VISIT DATE [...] his postop visit. He has been in residential since then and has been recovering from his acute on chronic congestive heart failure. His wound has largely been healing without any issues and the maxwell and sutures were removed at the nursing facility. He comes here with a lateral wound eschar. He denies any fevers, chills, or any drainage. He is on anticoagulation. 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 Patient on mycophenolate mofetil , cellcept and prednisone Mixed hyperlipidemia due to type 2 diabetes mellitus ([facility]) 11/29/2021 Osteomyelitis ([facility]) 11/29/2021 Paroxysmal atrial fibrillation ([facility]) Renal transplant, status post SA node dysfunction ([facility]) s/p pacemaker Type 2 diabetes mellitus with diabetic neuropathy, with long-term current use of insulin ([facility]) 02/24/2002 PAST SURGICAL HISTORY Procedure Laterality Date [...] by mouth daily with lunch. Magic Cup [place] with lunch aspirin, enteric coated (ASPIRIN, ENTERIC COATED) 81 mg EC tablet Take 1 tablet by (more content not included)... Normal [facility] PROTIMEon 02-25-2022 INR Coag (PPP) [Relative time] 1.31 {INR} Normal [facility] Comment on above: Performed By: #### P T ####[facility] [address] [place], [place] [address]Dr. Farhat Leal INR GUIDELINES SEE BELOW Normal [facility] Comment on above: Result Comment: MALINA RED INR: 2.0 - 3.0 CONDITIONS NOT LISTED BELOW 2.5 - 3.5 FOR PROSTHETIC HEART VALVE REPLACEMENT 2.5 - 3.5 RECURRENT THROMBOSIS Performed By: #### P T ####[facility] [address] [place], [place] [address]Ei. Farhat Leal PT Coag (PPP) [Time] 13.7 s Critically high 9.0-11.6 [facility] Comment on above: Performed By: #### P T ####[facility] [address] [place], [place] [address]WsSkylar Hassan 02-19-2022 CNPN Telephone (TXCTGL) ALEX ALMONTE ([id number]) 1945 M TRN Date Time Provider Department [...] by mouth daily with lunch. 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] 07/30/2006 VITAMIN D DEFICIENCY NOS [E55.9] 09/07/2008 [...] diabetes mellitus with diabetic peripher*11/29/2021 Atherosclerosis of [place] artery of extremity w*11/29/2021 Malnutrition of moderate degree (HCC) [E44.0] 12/01/2021 Dermatitis associated with moisture [L30.8] 12/04/2021 Encounter Status:Closed by AUGUSTA MEDRANO on 02/19/22 [facility] Sonya 02-18-2022 CNPN Telephone (PODCCP) ALEX ALMONTE ([id number]) 1945 M TRN Date Time Provider Department 02/18/22 DEVON MOREIRA PODCCWilfred During your visit today, we recorded the following information about you: Yumikoev Denise 02/18/2022 3:16 PM Signed Reason for call: Mr. Almonte would like to request a sooner appointment with Dr. Peterson than 04/13/2022. Contact Name (if not the patient) Alex's nurse Home and cell number(Ask for Alex's nurse) [phone] Diagnosis 4 mo f/u wound check Best regards, Yumiko Martinezsuzan Beard 02/19/2022 12:22 PM Signed Alex Almonte [...] by mouth daily with lunch. 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 Normal [facility] CNOVon 02-05-2022 CNOV Office Visit (TXCTGL ) ALEX ALMONTE ([id number]) 1945 M TRN Date Time Provider Department 02/05/22 8:20 AM KIDNEY TXP CLINIC TXCTGL During your visit today, we recorded the following information about you: Temperature Pulse Blood pressure 96.7 degrees 79/minute 72/42 Asia Pike MD 02/05/2022 9:38 AM Signed [facility] Urologic and Kidney [place] Transplant Follow up Portions of this note [...] and snacks patient declined. Indra scale at [facility]: 166.2 lbs per patient. Bed sore on coccyx causing discomfort. Being changed regularly at [facility]- reported to be smaller around but still as deep. Patient not very up to date with medications. Patient brought paperwork from [facility] [employer] with all medications being received. Patient unsure if they have been drawing labs regularly. Last Tac from 01/19: 12.9 and K 5.9. In need of current labs. Lab orders will be sent with patient and follows as below: Kidney and Pancreas Transplant Standing Lab Orders [address] [place], [place] [address] February 05, 2022 Alex Almonte 1945 [id number] STANDARD TESTING: Diagnosis Codes: Z94.0 Kidney Transplant [...] AT YOUR LABORATORY FACILITY AND FAX TO [phone]. PLEASE CALL [phone]. Provider: Dr. Pike Current Outpatient Medications Medication [...] Take 237 (more content not included)... Normal [facility] PROTEIN CREATININE RATIOon 1 04-08-2021 Protein/Creatinine (U) [Mass ratio] 0.10 mg/mg <0.15 mg/mg [facility] PROTIMEon 02-05-2022 INR Coag (PPP) [Relative time] 2.90 {INR} Normal [facility] Comment on above: Performed By: #### P T ####[facility] [address] [place] [address]Dr. Farhat Leal INR GUIDELINES SEE BELOW Normal [facility] Comment on above: Result Comment: MALINA RED INR: 2.0 - 3.0 CONDITIONS NOT LISTED BELOW 2.5 - 3.5 FOR PROSTHETIC HEART VALVE REPLACEMENT 2.5 - 3.5 RECURRENT THROMBOSIS Performed By: #### P T ####[facility] [address] [place], [place] [address]Si. Farhat Leal PT Coag (PPP) [Time] 29.2 s Critically high 9.0-11.6 [facility] Comment on above: Performed By: #### P T ####[facility] [address] [place] [id number]. Farhat Leal Prot/Creat Uron 02-05-2022 Protein/Creatinine (U) [Mass ratio] 0.10 mg/mg Normal <0.15 [facility] Comment on above: Order Comment: Speci men Type: URINE SPECIMENOrdering Facility: [facility] Address: [address] [place] [address] Result Comment: Adul t Proteinuria Categories: <0.15 mg/mg is considered normal to mildly increased 0.15 - 0.50 mg/mg is considered moderately increased >0.50 mg/mg is considered severely increased KDIGO. (2013). KDIGO 2012 Clinical Practice Guideline for the Evaluation and Management of Chronic Kidney Disease. Official Journal of the International Society of Nephrology, 3(1), 1-150. Performed By: #### 2 890-2 ####[facility] LABCLIA [id number] [place] [address] [place] [facility] Protein/Creatinine (U) [Mass ratio]on 02-05-2022 Creatinine (U) [Mass/Vol] 86.9 mg/dL 20.0 - 300.0 mg/dL [facility] Protein (U) [Mass/Vol] 9 mg/dL 0 - 20 mg/dL [facility] Creatinine (U) [Mass/Vol] 86.9 mg/dL Normal 20.0-300.0 [facility] Comment on above: Order Comment: Speci men Type: URINE SPECIMENOrdering Facility: [facility] Address: [address] [place], [place] [address] Performed By: #### 2 890-2 ####[facility] LABCLIA [id number] [place] [id number] [place] Protein (U) [Mass/Vol] 9 mg/dL Normal 0-20 Cl [facility] Comment on above: Order Comment: Speci men Type: URINE SPECIMENOrdering Facility: [facility] Address: [address] [place] [address] Performed By: #### 2 890-2 ####[facility] LABCL[facility] [id number] [place] [address] [place] URINALYSIS, DIPSTICK ONLYon 02-05-2022 Bilirubin Ql (U) Negative Normal Negative [facility] Comment on above: Order Comment: Speci men Type: URINE SPECIMEN [facility] Address: [address] [place] [address] Performed By: #### U A #### [facility] CLIA [id number] [address] [place] [address] [place] Clarity (Unsp spec) Clear Normal Clear [facility] Comment on above: Order Comment: Speci men Type: URINE SPECIMEN [facility] Address: [address] [place] [address] Performed By: #### U A #### [facility] CLIA [id number] [facility] [address] STATES OF [facility] Color (U) Yellow Normal Yellow [facility] Comment on above: Order Comment: Speci men Type: URINE SPECIMEN [facility] Address: [address] [place], [place] [address] Performed By: #### U A #### [facility] CLIA [id number] [facility] [place] [address] [place] Glucose Test strip (U) [Mass/Vol] 3+ Abnormal Trace, Negative [facility] Comment on above: Order Comment: Speci men Type: URINE SPECIMEN [facility] Address: [address] [place] [address] Performed By: #### U A #### [facility] CLIA [id number] [address] [place] [address] [place] Hemoglobin Ql (U) Negative Normal Negative, Trace [facility] Comment on above: Order Comment: Speci men Type: URINE SPECIMEN [facility] Address: [address] [place] [address] Performed By: #### U A #### [facility] CLIA [id number] [address] [place] [address] [place] Ketones Ql (U) Trace Normal Negative, Trace [facility] Comment on above: Order Comment: Speci men Type: URINE SPECIMEN [facility] Address: [address] [place] [address] Performed By: #### U A #### [facility] CLIA [id number] [address] [place] [address] [place] Leukocyte esterase Test strip Ql (U) Negative Normal Negative, 25 Loraine/mL [facility] Comment on above: Order Comment: Speci men Type: URINE SPECIMEN [facility] Address: [address] [place] [address] Performed By: #### U A #### [facility] CLIA [id number] [address] [place] [address] [place] Nitrite Ql (U) Negative Normal Negative [facility] Comment on above: Order Comment: Speci men Type: URINE SPECIMEN [facility] Address: [address] [place] [address] Performed By: #### U A #### [facility] CLIA [id number] [address] [place] [address] [place] pH (U) 5.5 [pH] Normal 5.0-8.0 [facility] Comment on above: Order Comment: Speci men Type: URINE SPECIMEN Order[facility] Address: [address] [place], [place] [address] Performed By: #### U A #### [facility] CLIA [id number] [address] [place] [address] [place] Protein (U) [Mass/Vol] Negative Normal Trace , Negative [facility] Comment on above: Order Comment: Speci men Type: URINE SPECIMEN [facility] Address: [address] [place] [address] Performed By: #### U A #### [facility] CLIA [id number] [address] [place] [address] [place] Specific gravity (U) [Rel density] 1.014 Normal 1.005-1.030 [facility] Comment on above: Order Comment: Speci men Type: URINE SPECIMEN [facility] Address: [address] [place] [address] Performed By: #### U A #### [facility] CLIA [id number] [address] [place] [address] [place] Urobilinogen Ql (U) 1+ Abnormal Negative [facility] Comment on above: Order Comment: Speci men Type: URINE SPECIMEN [facility] Address: [address] [place] [address] Performed By: #### U A #### [facility] CLIA [id number] [address] [place] [address] [place] Bilirubin Ql (U) Negative Negative [facility] Clarity (Unsp spec) Clear Clear [facility] Color (U) Yellow Yellow [facility] Glucose Test strip (U) [Mass/Vol] 3+ Abnormal Trace, Negative [facility] Hemoglobin Ql (U) Negative Negative, Trace [facility] Ketones Ql (U) Trace Negative, Trace [facility] Leukocyte esterase Test strip Ql (U) Negative Negative, 25 Loraine/mL [facility] Nitrite Ql (U) Negative Negative [facility] pH (U) 5.5 [pH] 5.0 - 8.0 [facility] Protein (U) [Mass/Vol] Negative Trace , Negative [facility] Specific gravity (U) [Rel density] 1.014 1.005 - 1.030 [facility] Urobilinogen Ql (U) 1+ Abnormal Negative [facility] FK506 (TACROLIMUS) WHOLE BLO ODon 01-29-2022 Tacrolimus (FK506), Blood 11.1 ng/mL Normal 2.0-20.0 [facility] Comment on above: Result Comment: Trou gh (immediately following transplant) 15.0 . Trough (steady state, 2 weeks or more after transplant): 3.0 - 8.0 . Performed by LC-MS/MS technology. Performed By: #### F K506T ####[facility] [address] [place], [place] [address]Dr. Farhat Leal PHOSPHORUSon 01-26-2022 Phosphate [Mass/Vol] 4.1 mg/dL Normal 2.6-4.7 [facility] Comment on above: Performed By: #### C CARA PHOS ####[facility] [address] [place], [place] [address]Dr. Farhat Leal PROF 14(COMP METB)on 022 Albumin [Mass/Vol] 2.1 g/dL Critically low 3.4-5.0 [facility] Comment on above: Performed By: #### C CARA, PHOS ####[facility] [address] [place], [place] [address]Dr. Farhat Leal Albumin/Globulin [Mass ratio] 0.6 {ratio} Normal [facility] Comment on above: Performed By: #### C CARA, PHOS ####[facility] [address] [place], [place] [address]Dr. Farhat Leal ALP [Catalytic activity/Vol] 89 U/L Normal 46-116 [facility] Comment on above: Performed By: #### C CARA, PHOS ####[facility] [address] [place], [place] [address]Dr. Farhat Leal ALT [Catalytic activity/Vol] 27 U/L Normal 16-63 [facility] Comment on above: Performed By: #### C CARA, PHOS ####[facility] [address] [place], [place] [address]Dr. Farhat Leal Anion gap [Moles/Vol] 12.3 mmol/L Normal [facility] Comment on above: Performed By: #### C CARA, PHOS ####[facility] Cdnmustmjx[address] [place], [place] [address]Dr. Farhat Leal AST [Catalytic activity/Vol] 53 U/L Critically high 15-37 [facility] Comment on above: Performed By: #### C MP, PHOS ####[facility] [address] [place], [place] [address]Dr. Farhat Leal Bilirubin [Mass/Vol] 0.6 mg/dL Normal 0.2-1.0 [facility] Comment on above: Performed By: #### C CARA, PHOS ####[facility] [address] [place], [place] [address]Dr. Farhat Leal Calcium [Mass/Vol] 8.0 mg/dL Critically low 8.5-10.1 [facility] Comment on above: Performed By: #### C CARA, PHOS ####[facility] [address] [place], [place] [address]Dr. Farhat Leal Chloride [Moles/Vol] 97 mmol/L Critically low 98-107 [facility] Comment on above: Performed By: #### C CARA, PHOS ####[facility] [address] [place], [place] [address]Dr. Farhat Leal CO2 [Moles/Vol] 26.6 mmol/L Normal 21.0-32.0 [facility] Comment on above: Performed By: #### C CARA, PHOS ####[facility] [address] [place], [place] [address]Dr. Farhat Leal Creatinine [Mass/Vol] 1.03 mg/dL Normal 0.70-1.30 [facility] Comment on above: Performed By: #### C CARA, PHOS ####[facility] [address] [place], [place] [address]Dr. Farhat Leal EGFR-AF ERITREAN >60 Normal >=60 [facility] Comment on above: Performed By: #### C CARA, PHOS ####[facility] [address] [place] [id number]. Farhat Leal EGFR-NON AF ERITREAN >60 Normal >=60 [facility] Comment on above: Performed By: #### C MP, PHOS ####[facility] [address] [place] [id number]. Farhat Leal Globulin (S) [Mass/Vol] 3.7 g/dL Normal [facility] Comment on above: Performed By: #### C MP, PHOS ####[facility] [address] [place] [address]Dr. Farhat Leal Glucose [Mass/Vol] 287 mg/dL Critically high 74-106 [facility] Comment on above: Performed By: #### C CARA, PHOS ####[facility] Lbr[address]slas[address] [place] [address]Dr. Farhat Leal Potassium [Moles/Vol] 3.9 mmol/L Normal 3.5-5.1 [facility] Comment on above: Performed By: #### C CARA, PHOS ####[facility] Xalvwgjbap[address] [place] [address]Dr. Farhat Leal Protein [Mass/Vol] 5.8 g/dL Critically low 6.4-8.2 Th [facility] Comment on above: Performed By: #### C CARA, PHOS ####[facility] Kdlvyziaak[address] [place] [address]Dr. Farhat Leal Sodium [Moles/Vol] 132 mmol/L Critically low 136-145 Th [facility] Comment on above: Performed By: #### C CARA, PHOS ####[facility] Vdk[address]awxdj[address] [place] [address]Dr. Farhat Leal Urea nitrogen [Mass/Vol] 23.0 mg/dL Critically high 7.0-18.0 [facility] Comment on above: Performed By: #### C CARA, PHOS ####[facility] Vuqdifrulj[address] [place] [address]Dr. Farhat Leal Urea nitrogen/Creatinine [Mass ratio] 22.3 mg/mg Normal [facility] Comment on above: Performed By: #### C MP, PHOS ####[facility] [address]cfdjcnptr[address] [place] [id number]. Farhat Leal FK506 (TACROLIMUS) WHOLE BLO ODon 01-21-2022 Tacrolimus (FK506), Blood 12.2 ng/mL Normal 2.0-20.0 [facility] Comment on above: Result Comment: Trou gh (immediately following transplant) 15.0 . Trough (steady state, 2 weeks or more after transplant): 3.0 - 8.0 . Performed by LC-MS/MS technology. Performed By: #### F K506T ####[facility] [address]nof[address]dss[address] [place] [id number]. Farhat Leal ACID FAST SMEAR AND CXon Acid Fast Culture Negative Normal [facility] Comment on above: Result Comment: No a abdiel fast bacilli isolated after 6 weeks. Performed By: #### A FB ####[facility] Tzse[address]wkham[address] [place] [id number]. Farhat Leal Acid Fast Smear Negative Normal [facility] Comment on above: Performed By: #### A FB ####[facility] Skqaoyuawe[address] [place] [address]Dr. Farhat Leal [employer] Specimen Processing Tissue Grinding Normal [facility] Comment on above: Performed By: #### A FB ####[facility] Lmyijosdaq[address] [place] [id number]. Farhat Leal [facility] 01-20-2022 DIAMANTEN Telephone (KIMBERLY) ALEX ALMONTE ([id number]) 1945 M [facility] Date Time Provider Department 01/20/22 VAN OLIVAREZ During your visit today, we recorded the following information about you: Van Olivarez APRN.CNP 01/20/2022 1:14 PM Signed Labs noted from yesterday. Pt is currently residing at [facility], I spoke with the Nurse, the results has been addressed by Physician caring for pt. He had been placed on Chlor Con and this has been discontinued and hyperkalemia has been treated. Van Olivarez APRN.CNP Allergies As of Date: 01/20/2022 Noted Allergy Reaction PYRIDOSTIGMINE BROMIDE 08/04/2021 8 - GI Upset Date Reviewed: 01/15/2022 Reviewed by: Raquel Tai APRN.DIAMANTE - Fully Assessed Reason for Visit: Results [...] by mouth daily with lunch. 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 No family history on file Normal [facility] PROF 14(COMP METB)on 022 Albumin [Mass/Vol] 1.9 g/dL Critically low 3.4-5.0 Th [facility] Comment on above: Performed By: #### C MP ####[facility] U[address]yr[address]bcr[address] [place] [address]DrSkylar Leal Albumin/Globulin [Mass ratio] 0.5 {ratio} Normal [facility] Comment on above: Performed By: #### C MP ####[facility] Txionsputq[address] [place] [address]DrSkylar Leal ALP [Catalytic activity/Vol] 78 U/L Normal 46-116 [facility] Comment on above: Performed By: #### C MP ####[facility] Btcxbzkyqb5[address] [place] [address]DrSkylar Leal ALT [Catalytic activity/Vol] 22 U/L Normal 16-63 [facility] Comment on above: Performed By: #### C MP ####[facility] Mqhnfoeuno38[address] [place] [address]Dr. Farhat Leal Anion gap [Moles/Vol] 8.0 mmol/L Normal [facility] Comment on above: Performed By: #### C MP ####[facility] Oaxuciktlz[address] [place] [address]Dr. Farhat Leal AST [Catalytic activity/Vol] 92 U/L Critically high 15-37 [facility] Comment on above: Performed By: #### C MP ####[facility] Jkxzgoozsi[address] [place], [place] [address]Dr. Farhat Leal Bilirubin [Mass/Vol] 0.7 mg/dL Normal 0.2-1.0 [facility] Comment on above: Performed By: #### C MP ####[facility] Hlbpufykak[address] [place], [place] [address]Dr. Farhat Leal Calcium [Mass/Vol] 7.8 mg/dL Critically low 8.5-10.1 Th [facility] Comment on above: Performed By: #### C MP ####[facility] Wgeivmkihh[address] [place], [place] [address]Dr. Farhat Leal Chloride [Moles/Vol] 99 mmol/L Normal 98-107 [facility] Comment on above: Performed By: #### C MP ####[facility] Mlasirqwek[address] [place], [place] [address]Dr. Farhat Leal CO2 [Moles/Vol] 30.9 mmol/L Normal 21.0-32.0 [facility] Comment on above: Performed By: #### C MP ####[facility] Alfzervcqz[address] [place], [place] [address]Dr. Farhat Leal Creatinine [Mass/Vol] 0.95 mg/dL Normal 0.70-1.30 [facility] Comment on above: Performed By: #### C MP ####[facility] Qrvczuaotj[address] [place], [place] [address]Dr. Madelynlorri Elvis EGFR-AF ERITREAN >60 Normal >=60 [facility] Comment on above: Performed By: #### C MP ####[facility] Zofdususnj[address] [place] [phone]. Farhat Leal EGFR-NON AF ERITREAN >60 Normal >=60 [facility] Comment on above: Performed By: #### C MP ####[facility] Jlowqcfnxq2910 [place] [id number]. Farhat Leal Globulin (S) [Mass/Vol] 3.9 g/dL Normal [facility] Comment on above: Performed By: #### C MP ####[facility] Rjkbezfuba[address] [place] [address]Dr. Farhat Leal Glucose [Mass/Vol] 124 mg/dL Critically high 74-106 [facility] Comment on above: Performed By: #### C MP ####[facility] Enkzkqquzl[address] [place] [address]Dr. Farhat Leal Potassium [Moles/Vol] 5.9 mmol/L Critically high 3.5-5.1 [facility] Comment on above: Performed By: #### C MP ####[facility] [address]zhyfnuqz[address] [place], [place] [address]Dr. Farhat Leal Protein [Mass/Vol] 5.8 g/dL Critically low 6.4-8.2 Th [facility] Comment on above: Performed By: #### C MP ####[facility] [address]eztlescnj[address] [place], [place] [address]Dr. Farhat Leal Sodium [Moles/Vol] 132 mmol/L Critically low 136-145 Th [facility] Comment on above: Performed By: #### C MP ####[facility] Fgqulptzpn[address] [place] [address]Dr. Farhat Leal Urea nitrogen [Mass/Vol] 18.0 mg/dL Normal 7.0-18.0 [facility] Comment on above: Performed By: #### C MP ####[facility] Xq[address]ryyyd[address] [place] [address]Dr. Farhat Leal Urea nitrogen/Creatinine [Mass ratio] 18.9 mg/mg Normal [facility] Comment on above: Performed By: #### C MP ####[facility] Peazbluutl[address] [place] [id number]. Farhat Leal INR (POC)on 01-12-2022 INR Coag (PPP) [Relative time] 2.6 {INR} High 0.8 - 1.2 [facility] Internal Quality Check Acceptable [facility] ACID FAST SMEAR AND CXon Acid Fast Culture Negative Normal [facility] Comment on above: Result Comment: No a abdiel fast bacilli isolated after 6 weeks. Performed By: #### A FB ####[facility] C[address] [place], [place] [id number]. Madelynlorri Leal Acid Fast Smear Negative Normal [facility] Comment on above: Performed By: #### A FB ####[facility] Hrsmcvoequ8[address] [place], [place] [address]Dr. Farhat Leal [employer] Specimen Processing Direct Inoculation Normal [facility] Comment on above: Performed By: #### A FB ####[facility] Gkuwdzelwd[address] [place], [place] [address]Dr. Madelynlorri Leal ACID FAST SMEAR AND CXon Acid Fast Culture Negative Normal [facility] Comment on above: Result Comment: No a abdiel fast bacilli isolated after 6 weeks. Performed By: #### A FB ####[facility] [address]amhmftwk[address] [place], [place] [address]Dr. Farhat Leal Acid Fast Smear Negative Normal [facility] Comment on above: Performed By: #### A FB ####[facility] Vaxlpqxhmn[address] [place], [place] [address]Dr. Farhat Leal [employer] Specimen Processing Tissue Grinding Normal [facility] Comment on above: Performed By: #### A FB ####[facility] [address]uqwhujj[address] [place], [place] [address]Dr. Farhat Leal FUNGAL CULTUREon 01-02-2022 Fungus (Mycology) Culture Final report Normal [facility] Comment on above: Performed By: #### C XFUN ####[facility] Jhsujailnw[address] [place], [place] [address]Dr. Farhat Leal Fungus Stain Final report Normal [facility] Comment on above: Performed By: #### C XFUN ####[facility] [address] [place] [address]. Madelynlorri Leal Result 1 Comment Normal [facility] Comment on above: Result Comment: ANNI/ Calcofluor preparation: no fungus observed. Performed By: #### C XFUN ####[facility] [address] [place] [address]. Farhat Leal Result Comment: No y east or mold isolated after 4 weeks. FK506 (TACROLIMUS) WHOLE BLO ODon 12-31-2021 Tacrolimus (FK506), Blood 7.7 ng/mL Normal 2.0-20.0 [facility] Comment on above: Result Comment: Trou gh (immediately following transplant) 15.0 . Trough (steady state, 2 weeks or more after transplant): 3.0 - 8.0 . Performed by LC-MS/MS technology. Performed By: #### F K506T ####[facility] Radqviuv[address] [place] [address]. Farhat Leal HEMOGRAM AND PLATELon 2021 Hematocrit (Bld) [Volume fraction] 27.1 % Critically low 42.0-54.0 [facility] Comment on above: Performed By: #### H H ####[facility] [address]xf[address] [place] [address]. Farhat Leal Hemoglobin (Bld) [Mass/Vol] 8.7 g/dL Critically low 14.0-18.0 [facility] Comment on above: Performed By: #### H H ####[facility] [address] [place] [address]. Farhat Leal MCH (RBC) [Entitic mass] 30.3 pg Normal 25.9-34.0 [facility] Comment on above: Performed By: #### H H ####[facility] [address] [place] [address]. Farhat Leal MCHC (RBC) [Mass/Vol] 32.1 g/dL Normal 29.9-35.2 [facility] Comment on above: Performed By: #### H H ####[facility] [address] [place] [address]. Farhat Leal MCV (RBC) [Entitic vol] 94.4 fL Critically high 80.0-94.0 [facility] Comment on above: Performed By: #### H H ####[facility] Yghpmwaehh[address] [place] [address]Dr. Farhat Leal PLT 355 103/ul Normal 150-450 [facility] Comment on above: Performed By: #### H H ####[facility] Vjqytfukjb[address]44 [place] [address]Dr. Farhat Leal RBC 2.87 106/ul Critically low 4.70-6.10 [facility] Comment on above: Performed By: #### H H ####[facility] Bucpdyyemj[address] [place] [address]Dr. Farhat Leal WBC 6.0 103/ul Normal 4.0-11.0 [facility] Comment on above: Performed By: #### H H ####[facility] Qtdijyykmf14[address] [place] [address]Dr. Farhat Leal PHOSPHORUSon 12-29-2021 Phosphate [Mass/Vol] 2.5 mg/dL Critically low 2.6-4.7 [facility] Comment on above: Performed By: #### P HOS, CMP ####[facility] Swhgbdbfsn[address] [place] [address]DrSkylar Farhat Elvis PROF 14(COMP METB)on 022 Albumin [Mass/Vol] 1.7 g/dL Critically low 3.4-5.0 [facility] Comment on above: Performed By: #### P HOS, CMP ####[facility] Anlineklxl5526 [place] [address]Dr. Farhat Leal Albumin/Globulin [Mass ratio] 0.5 {ratio} Normal [facility] Comment on above: Performed By: #### P HOS, CMP ####[facility] Uswhjialbr3836 [place] [address]Dr. Farhat Leal ALP [Catalytic activity/Vol] 78 U/L Normal 46-116 [facility] Comment on above: Performed By: #### P HOS, CMP ####[facility] Jxwvkbuuup[address] [place] [address]Dr. Farhat Leal ALT [Catalytic activity/Vol] 12 U/L Critically low 16-63 [facility] Comment on above: Performed By: #### P HOS, CMP ####[facility] Zoqakmfvon[address] [place], [place] [address]Dr. Farhat Leal Anion gap [Moles/Vol] 5.1 mmol/L Normal [facility] Comment on above: Performed By: #### P HOS, CMP ####[facility] Evfdslseoh[address] [place], [place] [address]Dr. Farhat Leal AST [Catalytic activity/Vol] 22 U/L Normal 15-37 [facility] Comment on above: Performed By: #### P HOS, CMP ####[facility] Hawihpiprg[address] [place], [place] [address]Dr. Farhat Leal Bilirubin [Mass/Vol] 0.6 mg/dL Normal 0.2-1.0 [facility] Comment on above: Performed By: #### P HOS, CMP ####[facility] Wqctrzdbwf[address] [place], [place] [address]Dr. Farhat Leal Calcium [Mass/Vol] 8.1 mg/dL Critically low 8.5-10.1 [facility] Comment on above: Performed By: #### P HOS, CMP ####[facility] [address]qxyowseyi[address] [place], [place] [address]Dr. Farhat Leal Chloride [Moles/Vol] 100 mmol/L Normal 98-107 [facility] Comment on above: Performed By: #### P HOS, CMP ####[facility] Albmwcroqt99[address] [place], [place] [address]Dr. Farhat Leal CO2 [Moles/Vol] 34.2 mmol/L Critically high 21.0-32.0 [facility] Comment on above: Performed By: #### P HOS, CMP ####[facility] Uqcxslqpus[address] [place], [place] [address]Dr. Farhat Leal Creatinine [Mass/Vol] 0.92 mg/dL Normal 0.70-1.30 [facility] Comment on above: Performed By: #### P HOS, CMP ####[facility] Wiyuuqwqbt[address] [place] [phone]. Farhat Leal EGFR-AF ERITREAN >60 Normal >=60 [facility] Comment on above: Performed By: #### P HOS, CMP ####[facility] Pqeazqqftl4640 [place] [phone]. Farhat Leal EGFR-NON AF ERITREAN >60 Normal >=60 [facility] Comment on above: Performed By: #### P HOS, CMP ####[facility] Yahamvwkjm1027 [place] [phone]. Farhat Leal Globulin (S) [Mass/Vol] 3.3 g/dL Normal [facility] Comment on above: Performed By: #### P HOS, CMP ####[facility] Anupbnullq1203 [place] [address]Dr. Farhat Leal Glucose [Mass/Vol] 116 mg/dL Critically high 74-106 [facility] Comment on above: Performed By: #### P HOS, CMP ####[facility] Vkisdmdiyd6231 [place] [address]Dr. Farhat Leal Potassium [Moles/Vol] 3.3 mmol/L Critically low 3.5-5.1 [facility] Comment on above: Performed By: #### P HOS, CMP ####[facility] Azyfecsoub4796 [place] [phone]. Farhat Leal Protein [Mass/Vol] 5.0 g/dL Critically low 6.4-8.2 [facility] Comment on above: Performed By: #### P HOS, CMP ####[facility] Tofzzztwua2443 [place] [address]Dr. Farhat Leal Sodium [Moles/Vol] 136 mmol/L Normal 136-145 [facility] Comment on above: Performed By: #### P HOS, CMP ####[facility] Cirhwfpttl5423 [place] [phone]. Fahrat Leal Urea nitrogen [Mass/Vol] 14.0 mg/dL Normal 7.0-18.0 [facility] Comment on above: Performed By: #### P HOS, CMP ####[facility] Huuyytubfm[address] [place], [place] [address]DrSkylar Leal Urea nitrogen/Creatinine [Mass ratio] 15.2 mg/mg Normal [facility] Comment on above: Performed By: #### P HOS, CMP ####[facility] Amrgfmomuk[address] [place], [place] [address]DrSkylar Leal PROTIMEon 12-29-2021 INR Coag (PPP) [Relative time] 1.26 {INR} Normal [facility] Comment on above: Performed By: #### P T ####[facility] Oxqsmcyots[address] [place], [place] [address]Dr. Farhat Leal INR GUIDELINES SEE BELOW Normal [facility] Comment on above: Result Comment: MALINA RED INR: 2.0 - 3.0 CONDITIONS NOT LISTED BELOW 2.5 - 3.5 FOR PROSTHETIC HEART VALVE REPLACEMENT 2.5 - 3.5 RECURRENT THROMBOSIS Performed By: #### P T ####[facility] Zrhrqbdoke[address] [place], [place] [address]Dr. Farhat Leal PT Coag (PPP) [Time] 13.4 s Critically high 9.0-11.6 [facility] Comment on above: Performed By: #### P T ####[facility] [address]uhkttecey[address] [place], [place] [address]Dr. Farhat Leal XR MODIFIED BARIUM SWALLOWon 12-25-2021 XR MODIFIED BARIUM SWALLOW Normal [facility] FUNGAL CULTUREon 12-24-2021 Fungus (Mycology) Culture Final report Normal [facility] Comment on above: Performed By: #### C XFUN ####[facility] Towjhnlxke[address] [place], [place] [address]Dr. Farhat Leal Fungus Stain Final report Normal [facility] Comment on above: Performed By: #### C XFUN ####[facility] Eeendvpnot[address] [place], [place] [address]DrSkylar Leal Result 1 Comment Normal [facility] Comment on above: Result Comment: ANNI/ Calcofluor preparation: no fungus observed. Performed By: #### C XFUN ####[facility] Mnvwtocljk[address] [place], [place] [address]Dr. Farhat Leal Result Comment: No y east or mold isolated after 4 weeks. VANCOMYCIN TROUGHon 12-21-19 VANCOMYCIN TROUGH 14.4 ug/ml Normal 5.0-20.0 [facility] Comment on above: Performed By: #### V ANCT ####[facility] Btesljyilu[address] [place], [place] [address]Dr. Farhat Leal CBC AUTO DIFFon 12-14-2021 BASO # 0.0 103/ul Normal 0.0-0.1 [facility] Comment on above: Performed By: #### C BC ####[facility] Fbyuyzlnjf[address] [place], [place] [address]Dr. Farhat Leal Basophils/100 WBC (Bld) 0.2 % Normal 0.2-2.0 [facility] Comment on above: Performed By: #### C BC ####[facility] Zqxyvptlnc[address] [place], [place] [address]Dr. Farhat Leal EO # 0.2 103/ul Normal 0.0-0.7 [facility] Comment on above: Performed By: #### C BC ####[facility] [address]rszvgvzxs[address] [place], [place] [address]Dr. Farhat eLal Eosinophils/100 WBC (Bld) 2.1 % Normal 0.9-7.0 [facility] Comment on above: Performed By: #### C BC ####[facility] Tshfxbqkme[address] [place], [place] [address]Dr. Farhat Leal Erythrocyte distribution width (RBC) [Ratio] 18.2 % Critically high 11.0-15.0 [facility] Comment on above: Performed By: #### C BC ####[facility] Xfnrgdxvsk[address] [place], [place] [address]DrSkylar Leal Hematocrit (Bld) [Volume fraction] 25.8 % Critically low 42.0-54.0 [facility] Comment on above: Performed By: #### C BC ####[facility] Ccemejbbnt[address] [place], [place] [address]Dr. Farhat Leal Hemoglobin (Bld) [Mass/Vol] 8.0 g/dL Critically low 14.0-18.0 [facility] Comment on above: Performed By: #### C BC ####[facility] Mrlznlqxjz5186 [place] [address]DrSkylar Leal IG # 0.08 10e3/ul Critically high 0.00-0.03 [facility] Comment on above: Performed By: #### C BC ####[facility] [address]wsgvwl[address] [place], [place] [address]DrSkylar Leal IG % 0.7 % Critically high 0.0-0.[address] [facility] Comment on above: Performed By: #### C BC ####[facility] Ikdmstypjg[address] [place], [place] [address]DrSkylar Leal LYMPH # 0.9 103/ul Critically low 1.2-3.8 [facility] Comment on above: Performed By: #### C BC ####[facility] [address] [place], [place] [address]DrSkylar Leal Lymphocytes/100 WBC (Bld) 8.7 % Critically low 20.5-60.0 [facility] Comment on above: Performed By: #### C BC ####[facility] Jhzinbtvbh6[address] [place], [place] [address]DrSkylar Leal MANUAL DIFF REQ NO Normal [facility] Comment on above: Performed By: #### C BC ####[facility] Yhltssjyew69[address] [place], [place] [address]DrSkylar Leal MCH (RBC) [Entitic mass] 30.0 pg Normal 25.9-34.0 [facility] Comment on above: Performed By: #### C BC ####[facility] Hqqggfruwe056[address] [place], [place] [address]DrSkylar Leal MCHC (RBC) [Mass/Vol] 31.0 g/dL Normal 29.9-35.2 [facility] Comment on above: Performed By: #### C BC ####[facility] Ampoawejjv23[address] [place], [place] [address]DrSkylar Leal MCV (RBC) [Entitic vol] 96.6 fL Critically high 80.0-94.0 [facility] Comment on above: Performed By: #### C BC ####[facility] [address] [place] [id number] Leal MONO # 0.7 103/ul Normal 0.3-0.8 [facility] Comment on above: Performed By: #### C BC ####[facility] Dmnfyjtqll6[address] [place], [place] [address]DrSkylar Farhat Leal Monocytes/100 WBC (Bld) 6.7 % Normal 1.7-12.0 [facility] Comment on above: Performed By: #### C BC ####[facility] Isyhdfjwgd358[address] [place], [place] [address]DrSkylar Farhat Leal NEUT # 8.8 103/ul Critically high 1.4-6.[address] [facility] Comment on above: Performed By: #### C BC ####[facility] Zzvbfnazkh[address] [place], [place] [address]DrSkylar Farhat Leal Neutrophils/100 WBC (Bld) 81.6 % Critically high 43.0-75.0 [facility] Comment on above: Performed By: #### C BC ####[facility] Odfdrkxqgg3828[address] [place], [place] [address]DrSkylar Farhat Leal Platelet mean volume (Bld) [Entitic vol] 10.5 fL Normal 9.5-13.5 [facility] Comment on above: Performed By: #### C BC ####[facility] Vqwnucjybh[address] [place], [place] [id number]. Farhat Leal PLT 285 103/ul Normal 150-450 [facility] Comment on above: Performed By: #### C BC ####[facility] Ookwwayygd[address] [place], [place] [id number] Farhat Elvis RBC 2.67 106/ul Critically low 4.70-6.[address] [facility] Comment on above: Performed By: #### C BC ####[facility] Cfoamtuuuv217[address] [place], [place] [address]DrSkylar Farhat Leal WBC 10.7 103/ul Normal 4.0-11.0 [facility] Comment on above: Performed By: #### C BC ####[facility] Y[address]oknimkd[address] [place] [address]DrSkylar Madelynlorri Leal PROF CHEM 8 (BAS METB)on Anion gap [Moles/Vol] 12.4 mmol/L Normal [facility] Comment on above: Performed By: #### B MP ####[facility] Uhgxxednke38[address] [place] [address]Dr. Farhat Leal Calcium [Mass/Vol] 7.8 mg/dL Critically low 8.5-10.1 [facility] Comment on above: Performed By: #### B MP ####[facility] Tqvikxpqaf985[address] [place], [place] [address]Dr. Farhat Leal Chloride [Moles/Vol] 102 mmol/L Normal 98-107 [facility] Comment on above: Performed By: #### B MP ####[facility] Jfbfgkkesi2889[address] [place], [place] [address]Dr. Farhat Leal CO2 [Moles/Vol] 28.1 mmol/L Normal 21.0-32.0 [facility] Comment on above: Performed By: #### B MP ####[facility] Eimzlqyzjd9526[address] [place], [place] [address]Dr. Farhat Leal Creatinine [Mass/Vol] 1.24 mg/dL Normal 0.70-1.30 [facility] Comment on above: Performed By: #### B MP ####[facility] [address]gv[address] [place] [address]Dr. Farhat Leal EGFR-AF ERITREAN >60 Normal >=60 [facility] Comment on above: Performed By: #### B MP ####[facility] Mwmhwmhdpv8449[address] [place], [place] [address]Dr. Farhat Leal EGFR-NON AF ERITREAN 57 mL/min/1.73m2 Critically low >=60 [facility] Comment on above: Performed By: #### B MP ####[facility] Hwadtcvlyf9356[address] [place], [place] [address]Dr. Farhat Leal Glucose [Mass/Vol] 296 mg/dL Critically high 74-106 [facility] Comment on above: Performed By: #### B MP ####[facility] Hptwhlzpfq127[address] [place], [place] [address]Dr. Farhat Leal Potassium [Moles/Vol] 3.5 mmol/L Normal 3.5-5.1 [facility] Comment on above: Performed By: #### B MP ####[facility] Mvqeagyngi13[address] [place], [place] [address]Dr. Farhat Leal Sodium [Moles/Vol] 139 mmol/L Normal 136-145 [facility] Comment on above: Performed By: #### B MP ####[facility] Vgbynabafo5717[address] [place], [place] [address]Dr. Farhat Leal Urea nitrogen [Mass/Vol] 27.0 mg/dL Critically high 7.0-18.0 [facility] Comment on above: Performed By: #### B MP ####[facility] Zaiwjanyap27[address] [place], [place] [address]Dr. Farhat Leal Urea nitrogen/Creatinine [Mass ratio] 21.8 mg/mg Normal [facility] Comment on above: Performed By: #### B MP ####[facility] Skcwywdfks019[address] [place], [place] [address]Dr. Farhat Leal PROTIMEon 12-14-2021 INR Coag (PPP) [Relative time] 3.36 {INR} Normal [facility] Comment on above: Performed By: #### P T ####[facility] Hnxhoqlwlv5369[address] [place], [place] [address]Dr. Farhat Leal INR GUIDELINES SEE BELOW Normal [facility] Comment on above: Result Comment: MALINA RED INR: 2.0 - 3.0 CONDITIONS NOT LISTED BELOW 2.5 - 3.5 FOR PROSTHETIC HEART VALVE REPLACEMENT 2.5 - 3.5 RECURRENT THROMBOSIS Performed By: #### P T ####[facility] Lvctevwgad674[address] [place], [place] [address]Dr. Farhat Leal PT Coag (PPP) [Time] 33.5 s Critically high 9.0-11.6 [facility] Comment on above: Performed By: #### P T ####[facility] [address] [place], [place] [address]WxSkylar Leal XR CHEST 1 Von 12-14-2021 XR CHEST 1 V Normal [facility] No Panel Informationon 12-01 BLANK _ [facility] Implant Date 04/22/2012 [facility] PACEMAKER CLINIC CHECKon AMS Duration (ms) 5 of 8 [facility] AMS Fallback Rate (bpm) DDIR [facility] AV Delay Adaptive Paced Minimum (ms) 300 ms [facility] AV Delay Adaptive Rate Maximum (bpm) 130 {beats}/min [facility] AV Delay Adaptive Rate Minimum (bpm) 70 {beats}/min [facility] AV Delay Adaptive Sensed Minimum (ms) 300 ms [facility] AV Delay Paced (ms) 300 ms [facility] AV Delay Sensed (ms) 300 ms [facility] Jaciel LV Pacing Polarity Unknown [facility] Jaciel LV Sensing Polarity Unknown [facility] Jaciel RA Pacing Amplitude (volts) 2.4 V [facility] Jaciel RA Pacing Polarity BI [facility] Jaciel RA Pacing Pulse Width (ms) 0.4 ms [facility] Jaciel RA Sensing Amplitude (mvolts) AUTO [facility] Jaciel RA Sensing Blanking Period (ms) 56 ms [facility] Jaciel RA Sensing Polarity BI [facility] Jaciel RA Sensing Refractory Period (ms) AUTO [facility] Jaciel RV Pacing Amplitude (volts) 3.4 V [facility] Jaciel RV Pacing Polarity BI [facility] Jaciel RV Pacing Pulse Width (ms) 0.4 ms [facility] Jaciel RV Sensing Amplitude (mvolts) AUTO [facility] Jaciel RV Sensing Blanking Period (ms) 30 ms [facility] Jaciel RV Sensing Polarity BI [facility] Jaciel RV Sensing Refractory Period (ms) 250 ms [facility] Hysteresis Rate (bpm) 60 {beats}/min [facility] Lead1 Mfg SUZETTE [facility] Lead2 Mfg SUZETTE [facility] Location RA [facility] Location RV [facility] Lower Rate (bpm) 60 {beats}/min [facility] Max Sensor Rate (bmp) 130 {beats}/min [facility] Model [id number] Monika Dominguez [facility] Model [id number] [facility] Model [id number] [facility] Pacemaker Dependent? NO [facility] PM-Device Mfg BIO [facility] PM-PMT Intervention ON [facility] PM-PVC Intervention ON [facility] PM-Rate Modulation Acceleration Reaction 4 s [facility] PM-Rate Modulation Deceleration 0.5 m [facility] PM-Rate Modulation [place] 23 [facility] PM-Rate Modulation Threshold Medium [facility] RA Bipolar Impedance ohms 448 ohm [facility] Rhythm AF with controlled ventricular rate. [facility] RV Bipolar Impedance ohms 390 ohm [facility] Serial Number [id number] [facility] Serial Number [id number] [facility] Serial Number [id number] [facility] Thresh RA Sensing Amplitude (mvolts) 2.4 mV [facility] Thresh RV Capture Amplitude (volts) 1.8 V [facility] Thresh RV Capture Duration (ms) 0.4 ms [facility] Thresh RV Sensing Amplitude (mvolts) 2.4 mV [facility] Tracking Rate (bpm) 160 {beats}/min [facility] BNPon 11-28-2021 Natriuretic peptide B (Bld) [Mass/Vol] 62846.0 pg/mL Critically high <=1,800.0 [facility] Comment on above: Performed By: #### C MP, BNP, CRP ####[facility] Aodrphxuvq69[address] [place], [place] [address]Dr. Farhat Leal CBC AUTO DIFFon 11-28-2021 BASO # 0.0 103/ul Normal 0.0-0.1 [facility] Comment on above: Performed By: #### C BC ####[facility] Woibedcdxr0167[address] [place], [place] [address]Dr. Farhat Leal Basophils/100 WBC (Bld) 0.3 % Normal 0.2-2.0 [facility] Comment on above: Performed By: #### C BC ####[facility] [address] [place] [address]Dr. Farhat Leal EO # 0.1 103/ul Normal 0.0-0.7 [facility] Comment on above: Performed By: #### C BC ####[facility] Kkypgodcuh094[address] [place], [place] [address]Dr. Farhat Leal Eosinophils/100 WBC (Bld) 1.0 % Normal 0.9-7.0 [facility] Comment on above: Performed By: #### C BC ####[facility] M[address]pr[address]xsnzg[address] [place] [address]Dr. Madelynlorri Elvis Erythrocyte distribution width (RBC) [Ratio] 14.0 % Normal 11.0-15.0 [facility] Comment on above: Performed By: #### C BC ####[facility] Edwtp[address]mb[address] [place] [address]Dr. Farhat Leal Hematocrit (Bld) [Volume fraction] 27.6 % Critically low 42.0-54.0 [facility] Comment on above: Performed By: #### C BC ####[facility] Tbhnwsgvgl2812[address] [place], [place] [address]Dr. Farhat Leal Hemoglobin (Bld) [Mass/Vol] 9.0 g/dL Critically low 14.0-18.0 [facility] Comment on above: Performed By: #### C BC ####[facility] Yibotqhncl146[address] [place], [place] [address]Dr. Farhat Leal IG # 0.12 10e3/ul Critically high 0.00-0.03 [facility] Comment on above: Performed By: #### C BC ####[facility] Wphbnfrcxq3564[address] [place], [place] [address]Dr. Farhat Leal IG % 1.0 % Critically high 0.0-0.[address] [facility] Comment on above: Performed By: #### C BC ####[facility] Avjptdyiuq817[address] [place], [place] [address]Dr. Farhat Leal LYMPH # 1.2 103/ul Normal 1.2-3.8 [facility] Comment on above: Performed By: #### C BC ####[facility] Rxemhdokxl9433[address] [place], [place] [address]Dr. Farhat Leal Lymphocytes/100 WBC (Bld) 9.9 % Critically low 20.5-60.0 [facility] Comment on above: Performed By: #### C BC ####[facility] Sbspebtlng24[address] [place], [place] [address]Dr. Farhat Leal MANUAL DIFF REQ NO Normal [facility] Comment on above: Performed By: #### C BC ####[facility] Lexkewanun[address] [place] [address]Dr. Farhat Leal MCH (RBC) [Entitic mass] 30.0 pg Normal 25.9-34.0 [facility] Comment on above: Performed By: #### C BC ####[facility] Wookeypfbz434[address] [place], [place] [address]Dr. Farhat Leal MCHC (RBC) [Mass/Vol] 32.6 g/dL Normal 29.9-35.2 [facility] Comment on above: Performed By: #### C BC ####[facility] Siqsoevolj645[address] [place], [place] [address]DrSkylar Leal MCV (RBC) [Entitic vol] 92.0 fL Normal 80.0-94.0 [facility] Comment on above: Performed By: #### C BC ####[facility] Lixglhdggr1594[address] [place], [place] [address]DrSkylar Leal MONO # 1.1 103/ul Critically high 0.3-0.[address] [facility] Comment on above: Performed By: #### C BC ####[facility] Bwaplewaby1897[address] [place], [place] [address]DrSkylar Leal Monocytes/100 WBC (Bld) 9.3 % Normal 1.7-12.0 [facility] Comment on above: Performed By: #### C BC ####[facility] Kydesatthx23[address] [place], [place] [address]DrSkylar Leal NEUT # 9.3 103/ul Critically high 1.4-6.[address] [facility] Comment on above: Performed By: #### C BC ####[facility] Qlihpgakcp1744[address] [place], [place] [address]DrSkylar Leal Neutrophils/100 WBC (Bld) 78.5 % Critically high 43.0-75.0 [facility] Comment on above: Performed By: #### C BC ####[facility] Wrbkxueprw2214[address] [place], [place] [address]DrSkylar Leal Platelet mean volume (Bld) [Entitic vol] 9.6 fL Normal 9.5-13.5 [facility] Comment on above: Performed By: #### C BC ####[facility] R[address]ixk[address] [place] [address]Dr. Farhat Leal PLT 357 103/ul Normal 150-450 [facility] Comment on above: Performed By: #### C BC ####[facility] Jrfitpntio2837 [place] [id number]. Farhat Leal RBC 3.00 106/ul Critically low 4.70-6.10 [facility] Comment on above: Performed By: #### C BC ####[facility] Pwh[address]ixaknn[address] [place] [address]Dr. Farhat Leal WBC 11.8 103/ul Critically high 4.0-11.0 [facility] Comment on above: Performed By: #### C BC ####[facility] Npeacvgqer2674 [place] [address]DrSkylar Leal CRPon 11-28-2021 CRP 20.9 mg/dL Critically high <=1.0 [facility] Comment on above: Performed By: #### C MP, BNP, CRP ####[facility] Oprcotaaxz[address] [place], [place] [address]Dr. Farhat Leal CULTURE OTHERon 11-28-2021 CULTURE OTHER Normal [facility] Comment on above: Performed By: #### O THCX ####[facility] Krxmiabdho838[address] [place], [place] [address]Dr. Farhat Leal CULTURE OTHER Normal [facility] Comment on above: Performed By: #### O THCX ####[facility] Egywsnvxyy7755 [place] [id number] Leal PROF 14(COMP METB)on 022 Albumin [Mass/Vol] 1.4 g/dL Critically low 3.4-5.0 [facility] Comment on above: Performed By: #### C MP, BNP, CRP ####[facility] Mhxzgbbbxd11[address] [place], [place] [address]DrSkylar Leal Albumin/Globulin [Mass ratio] 0.4 {ratio} Normal [facility] Comment on above: Performed By: #### C MP, BNP, CRP ####[facility] Hfkfokwntg5737 [place] [address]Dr. Farhat Leal ALP [Catalytic activity/Vol] 82 U/L Normal 46-116 [facility] Comment on above: Performed By: #### C MP, BNP, CRP ####[facility] Yauveffven649[address] [place], [place] [address]Dr. Farhat Elvis ALT [Catalytic activity/Vol] 20 U/L Normal 16-63 [facility] Comment on above: Performed By: #### C MP, BNP, CRP ####[facility] Xuujsuujay8249[address] [place], [place] [address]Dr. Farhat Leal Anion gap [Moles/Vol] 13.0 mmol/L Normal [facility] Comment on above: Performed By: #### C MP, BNP, CRP ####[facility] Jormfurthr1227[address] [place], [place] [address]Dr. Farhat Elvis AST [Catalytic activity/Vol] 33 U/L Normal 15-37 [facility] Comment on above: Performed By: #### C MP, BNP, CRP ####[facility] Louwffremq0539[address] [place], [place] [address]Dr. Farhat Leal Bilirubin [Mass/Vol] 0.7 mg/dL Normal 0.2-1.0 [facility] Comment on above: Performed By: #### C MP, BNP, CRP ####[facility] Aoebwiwdxw019[address] [place], [place] [address]Dr. Farhat Leal Calcium [Mass/Vol] 8.4 mg/dL Critically low 8.5-10.1 [facility] Comment on above: Performed By: #### C MP, BNP, CRP ####[facility] Oqmjrtcxzu5639[address] [place], [place] [address]Dr. Farhat Leal Chloride [Moles/Vol] 100 mmol/L Normal 98-107 [facility] Comment on above: Performed By: #### C MP, BNP, CRP ####[facility] Kduzzgetgt69[address] [place] [address]Dr. Farhat Leal CO2 [Moles/Vol] 23.7 mmol/L Normal 21.0-32.0 [facility] Comment on above: Performed By: #### C MP, BNP, CRP ####[facility] Igvuzjbwfc7798 [place] [address]Dr. Farhat Elvis Creatinine [Mass/Vol] 1.70 mg/dL Critically high 0.70-1.30 [facility] Comment on above: Performed By: #### C MP, BNP, CRP ####[facility] Zhoocrvfqc7390 [place] [address]Dr. Farhat Elvis EGFR-AF ERITREAN 48 mL/min/1.73m2 Critically low >=60 [facility] Comment on above: Performed By: #### C MP, BNP, CRP ####[facility] Dwdodiqnzp0525 [place] [address]Dr. Farhat Leal EGFR-NON AF ERITREAN 39 mL/min/1.73m2 Critically low >=60 [facility] Comment on above: Performed By: #### C MP, BNP, CRP ####[facility] Tvyrnyaaww0279 [place] [address]Dr. Farhat Elvis Globulin (S) [Mass/Vol] 3.6 g/dL Normal [facility] Comment on above: Performed By: #### C MP, BNP, CRP ####[facility] Rvsybggswj5962 [place] [address]Dr. Madelynlorri Elvis Glucose [Mass/Vol] 232 mg/dL Critically high 74-106 [facility] Comment on above: Performed By: #### C MP, BNP, CRP ####[facility] Fvjcnvmhqu9448 [place] [address]Dr. Farhat Elvis Potassium [Moles/Vol] 3.7 mmol/L Normal 3.5-5.1 [facility] Comment on above: Performed By: #### C MP, BNP, CRP ####[facility] Dyjqgqvhzh5770 [place] [address]Dr. Farhat Leal Protein [Mass/Vol] 5.0 g/dL Critically low 6.4-8.2 [facility] Comment on above: Performed By: #### C MP, BNP, CRP ####[facility] Qvivwkabdq3675[address] [place], [place] [address]Dr. Farhat Leal Sodium [Moles/Vol] 133 mmol/L Critically low 136-145 [facility] Comment on above: Performed By: #### C MP, BNP, CRP ####[facility] Etplidvwul826[address] [place], [place] [address]Dr. Farhat Leal Urea nitrogen [Mass/Vol] 52.0 mg/dL Critically high 7.0-18.0 [facility] Comment on above: Performed By: #### C MP, BNP, CRP ####[facility] Cshcxjsjme522[address] [place], [place] [address]Dr. Farhat Leal Urea nitrogen/Creatinine [Mass ratio] 30.6 mg/mg Normal [facility] Comment on above: Performed By: #### C MP, BNP, CRP ####[facility] Uslqegisoq2954[address] [place], [place] [address]Dr. Farhat Leal PROTIMEon 11-28-2021 INR Coag (PPP) [Relative time] 1.29 {INR} Normal [facility] Comment on above: Performed By: #### P T ####[facility] Xwfpnftiai724[address] [place], [place] [address]Dr. Farhat Leal INR GUIDELINES SEE BELOW Normal [facility] Comment on above: Result Comment: MALINA RED INR: 2.0 - 3.0 CONDITIONS NOT LISTED BELOW 2.5 - 3.5 FOR PROSTHETIC HEART VALVE REPLACEMENT 2.5 - 3.5 RECURRENT THROMBOSIS Performed By: #### P T ####[facility] Qrvcguuyfm8[address] [place], [place] [address]Dr. Farhat Leal PT Coag (PPP) [Time] 13.7 s Critically high 9.0-11.6 [facility] Comment on above: Performed By: #### P T ####[facility] Vcabwgyqwf64[address] [place], [place] [address]Dr. Farhat Leal SED RATE [facility] 2021 SED RATE 77 mm/hr Critically high <=[address] [facility] Comment on above: Performed By: #### S EDR ####[facility] Tpqpescgyj569[address] [place], [place] [address]Dr. Farhat Leal XR CHEST 2 Von 11-28-2021 XR CHEST 2 V Normal [facility] BNPon 11-27-2021 Natriuretic peptide B (Bld) [Mass/Vol] 22239.0 pg/mL Critically high <=1,800.0 [facility] [facility] Comment on above: Performed By: #### B COMMERCIAL REAL ESTATE PARALEGAL, CMP, CRP ####[facility] Saolbgixwt0[address] [place], [place] [address]Dr. Farhat Leal CBC AUTO DIFFon 11-27-2021 BASO # 0.0 103/ul Normal 0.0-0.1 [facility] Comment on above: Performed By: #### C BC ####[facility] Vcyeglajmb35[address] [place], [place] [address]Dr. Farhat Leal Basophils/100 WBC (Bld) 0.2 % Normal 0.2-2.0 The [facility] Comment on above: Performed By: #### C BC ####[facility] Lhaaqqckli[address] [place], [place] [address]Dr. Farhat Leal EO # 0.2 103/ul Normal 0.0-0.7 The [facility] Comment on above: Performed By: #### C BC ####[facility] Dmfcpubtmj6[address] [place], [place] [address]Dr. Farhat Leal Eosinophils/100 WBC (Bld) 1.9 % Normal 0.9-7.0 The [facility] Comment on above: Performed By: #### C BC ####[facility] Pzxydkgsry20[address] [place], [place] [address]Dr. Farhat Leal Erythrocyte distribution width (RBC) [Ratio] 13.9 % Normal 11.0-15.0 [facility] Comment on above: Performed By: #### C BC ####[facility] Pdzxqpbkgj08[address] [place], [place] [address]Dr. Farhat Leal Hematocrit (Bld) [Volume fraction] 28.7 % Critically low 42.0-54.0 The [facility] Comment on above: Performed By: #### C BC ####[facility] Gluatzaiob[address] [place] [phone]. Farhat Leal Hemoglobin (Bld) [Mass/Vol] 9.3 g/dL Critically low 14.0-18.0 [facility] Comment on above: Performed By: #### C BC ####[facility] At[address]emk[address] [place] [address]Dr. Farhat Leal IG # 0.14 10e3/ul Critically high 0.00-0.03 [facility] Comment on above: Performed By: #### C BC ####[facility] Xficdqufzh58[address] [place] [address]Dr. Farhat Leal IG % 1.2 % Critically high 0.0-0.[address] [facility] Comment on above: Performed By: #### C BC ####[facility] Yzvwkrnejt75[address] [place], [place] [address]Dr. Farhat Elvis LYMPH # 1.1 103/ul Critically low 1.2-3.8 [facility] Comment on above: Performed By: #### C BC ####[facility] Ykbvudllgo75[address] [place] [address]Dr. Farhat Leal Lymphocytes/100 WBC (Bld) 9.4 % Critically low 20.5-60.0 [facility] Comment on above: Performed By: #### C BC ####[facility] C[address]xuquuha[address] [place] [address]Dr. Farhat Leal MANUAL DIFF REQ NO Normal [facility] Comment on above: Performed By: #### C BC ####[facility] Wyzeomqgiu28[address] [place] [address]Dr. Farhat Leal MCH (RBC) [Entitic mass] 29.7 pg Normal 25.9-34.0 [facility] Comment on above: Performed By: #### C BC ####[facility] Lubaosoika[address] [place] [address]Dr. Farhat Elvis MCHC (RBC) [Mass/Vol] 32.4 g/dL Normal 29.9-35.2 [facility] Comment on above: Performed By: #### C BC ####[facility] Vrpmwclapu[address] [place] [phone]. Farhat Leal MCV (RBC) [Entitic vol] 91.7 fL Normal 80.0-94.0 [facility] Comment on above: Performed By: #### C BC ####[facility] Smttwnpduy[address] [place] [id number] Leal MONO # 1.1 103/ul Critically high 0.3-0.[address] [facility] Comment on above: Performed By: #### C BC ####[facility] Vizujsxapk7791 [place] [phone]. Farhat Leal Monocytes/100 WBC (Bld) 9.7 % Normal 1.7-12.0 [facility] Comment on above: Performed By: #### C BC ####[facility] Dtzxghvdhm[address] [place], [place] [id number]. Farhat Leal NEUT # 9.2 103/ul Critically high 1.4-6.[address] [facility] Comment on above: Performed By: #### C BC ####[facility] Snfjruwocu7953 [place] [phone]. Farhat Leal Neutrophils/100 WBC (Bld) 77.6 % Critically high 43.0-75.0 [facility] Comment on above: Performed By: #### C BC ####[facility] Ghixjdzkiu2290 [place] [phone]. Farhat Leal Platelet mean volume (Bld) [Entitic vol] 9.5 fL Normal 9.5-13.5 [facility] Comment on above: Performed By: #### C BC ####[facility] Subxihiiit[address] [place], [place] [id number]. Farhat Elvis PLT 375 103/ul Normal 150-450 [facility] Comment on above: Performed By: #### C BC ####[facility] Kqnzivomoy3257 [place] [phone]. Farhat Elvis RBC 3.13 106/ul Critically low 4.70-6.10 [facility] Comment on above: Performed By: #### C BC ####[facility] Xyejsezgcw4911 [place] [id number]. Madelynlorri Leal WBC 11.8 103/ul Critically high 4.0-11.0 [facility] Comment on above: Performed By: #### C BC ####[facility] Ifyavojtcv6312 [place] [phone]. Farhat Leal CRPon 11-27-2021 CRP 24.5 mg/dL Critically high <=1.0 [facility] Comment on above: Performed By: #### B COMMERCIAL REAL ESTATE PARALEGAL, CMP, CRP ####[facility] Owdlcuavjn[address] [place] [address]Dr. Farhat Leal CULTURE OTHERon 11-27-2021 CULTURE OTHER Normal [facility] Comment on above: Performed By: #### O THCX ####[facility] Ewforoehzh7[address] [place], [place] [address]Dr. Farhat Leal CULTURE OTHER Normal [facility] Comment on above: Performed By: #### O THCX ####[facility] Qoxrcjyfus75[address] [place], [place] [address]Dr. Farhat Leal CULTURE WOUNDon 11-27-2021 CULTURE WOUND Normal [facility] Comment on above: Performed By: #### W OUNDCX ####[facility] Yxzljsktdn5060 [place] [address]Dr. Farhat Leal POINT OF CARE GLUCOSEon 11-15 Glucose [Mass/Vol] 147 mg/dL Critically high 74-106 [facility] Comment on above: Performed By: #### P OCGLUC ####[facility] Yueltmvpbh5524[address] [place], [place] [address]Dr. Farhat Leal PROF 14(COMP METB)on 022 Albumin [Mass/Vol] 1.4 g/dL Critically low 3.4-5.0 [facility] Comment on above: Performed By: #### B COMMERCIAL REAL ESTATE PARALEGAL, CMP, CRP ####[facility] Jpharvdorz39[address] [place] [address]Dr. Farhat Leal Albumin/Globulin [Mass ratio] 0.4 {ratio} Normal [facility] Comment on above: Performed By: #### B COMMERCIAL REAL ESTATE PARALEGAL, CMP, CRP ####[facility] Lcueeqdbzd4427[address] [place], [place] [address]Dr. Farhat Elvis ALP [Catalytic activity/Vol] 82 U/L Normal 46-116 [facility] Comment on above: Performed By: #### B COMMERCIAL REAL ESTATE PARALEGAL, CMP, CRP ####[facility] Rxekiofapc6922[address] [place], [place] [address]Dr. Farhat Leal ALT [Catalytic activity/Vol] 22 U/L Normal 16-63 [facility] Comment on above: Performed By: #### B COMMERCIAL REAL ESTATE PARALEGAL, CMP, CRP ####[facility] Plpmdeqjym7198[address] [place], [place] [address]Dr. Farhat Leal Anion gap [Moles/Vol] 14.2 mmol/L Normal [facility] Comment on above: Performed By: #### B COMMERCIAL REAL ESTATE PARALEGAL, CMP, CRP ####[facility] Ilwzetwzmk94[address] [place], [place] [address]Dr. Farhat Leal AST [Catalytic activity/Vol] 35 U/L Normal 15-37 [facility] Comment on above: Performed By: #### B COMMERCIAL REAL ESTATE PARALEGAL, CMP, CRP ####[facility] Avkhgodvvq6840[address] [place], [place] [address]Dr. Farhat Leal Bilirubin [Mass/Vol] 0.7 mg/dL Normal 0.2-1.0 [facility] Comment on above: Performed By: #### B COMMERCIAL REAL ESTATE PARALEGAL, CMP, CRP ####[facility] Pzubjtksep5[address] [place], [place] [address]Dr. Farhat Leal Calcium [Mass/Vol] 8.2 mg/dL Critically low 8.5-10.1 [facility] Comment on above: Performed By: #### B COMMERCIAL REAL ESTATE PARALEGAL, CMP, CRP ####[facility] Fspiyysbdm87[address] [place], [place] [address]Dr. Farhat Leal Chloride [Moles/Vol] 99 mmol/L Normal 98-107 [facility] Comment on above: Performed By: #### B COMMERCIAL REAL ESTATE PARALEGAL, CMP, CRP ####[facility] Lxkcyznooa9[address] [place] [address]Dr. Farhat Leal CO2 [Moles/Vol] 22.6 mmol/L Normal 21.0-32.0 [facility] Comment on above: Performed By: #### B COMMERCIAL REAL ESTATE PARALEGAL, CMP, CRP ####[facility] Izbkdqaeng0640 [place] [phone]. Farhat Leal Creatinine [Mass/Vol] 1.73 mg/dL Critically high 0.70-1.30 [facility] Comment on above: Performed By: #### B COMMERCIAL REAL ESTATE PARALEGAL, CMP, CRP ####[facility] Vbokrqcmkf6746 [place] [phone]. Farhat Elvis EGFR-AF ERITREAN 47 mL/min/1.73m2 Critically low >=60 [facility] Comment on above: Performed By: #### B COMMERCIAL REAL ESTATE PARALEGAL, CMP, CRP ####[facility] Qrnmibrtxa5548[address] [place], [place] [address]Dr. Farhat Leal EGFR-NON AF ERITREAN 38 mL/min/1.73m2 Critically low >=60 [facility] Comment on above: Performed By: #### B COMMERCIAL REAL ESTATE PARALEGAL, CMP, CRP ####[facility] Idxmqopgws16[address] [place] [address]Dr. Farhat Elvis Globulin (S) [Mass/Vol] 3.7 g/dL Normal [facility] Comment on above: Performed By: #### B COMMERCIAL REAL ESTATE PARALEGAL, CMP, CRP ####[facility] Vyxeoymvhz8436 [place] [address]Dr. Madelynlorri Elvis Glucose [Mass/Vol] 220 mg/dL Critically high 74-106 [facility] Comment on above: Performed By: #### B COMMERCIAL REAL ESTATE PARALEGAL, CMP, CRP ####[facility] Xfxpdrwmuj9752 [place] [address]Dr. Farhat Leal Potassium [Moles/Vol] 3.8 mmol/L Normal 3.5-5.1 [facility] Comment on above: Performed By: #### B COMMERCIAL REAL ESTATE PARALEGAL, CMP, CRP ####[facility] Bbpfdzmaay3450 [place] [address]Dr. Farhat Elvis Protein [Mass/Vol] 5.1 g/dL Critically low 6.4-8.2 [facility] Comment on above: Performed By: #### B COMMERCIAL REAL ESTATE PARALEGAL, CMP, CRP ####[facility] Vspazxojgd1679 [place] [address]Dr. Farhat Leal Sodium [Moles/Vol] 132 mmol/L Critically low 136-145 Th [facility] Comment on above: Performed By: #### B COMMERCIAL REAL ESTATE PARALEGAL, CMP, CRP ####[facility] Xvgcukklbk5924 [place] [address]Dr. Farhat Leal Urea nitrogen [Mass/Vol] 49.0 mg/dL Critically high 7.0-18.0 [facility] Comment on above: Performed By: #### B COMMERCIAL REAL ESTATE PARALEGAL, CMP, CRP ####[facility] Phixtvdffb100[address] [place], [place] [address]Dr. Farhat Leal Urea nitrogen/Creatinine [Mass ratio] 28.3 mg/mg Normal [facility] Comment on above: Performed By: #### B COMMERCIAL REAL ESTATE PARALEGAL, CMP, CRP ####[facility] Uqcueuupse90[address] [place], [place] [address]Dr. Farhat Leal PROTIMEon 11-27-2021 INR Coag (PPP) [Relative time] 1.25 {INR} Normal [facility] Comment on above: Performed By: #### P T ####[facility] Hhwbgzlnci19[address] [place], [place] [address]Dr. Farhat Leal INR GUIDELINES SEE BELOW Normal [facility] Comment on above: Result Comment: MALINA RED INR: 2.0 - 3.0 CONDITIONS NOT LISTED BELOW 2.5 - 3.5 FOR PROSTHETIC HEART VALVE REPLACEMENT 2.5 - 3.5 RECURRENT THROMBOSIS Performed By: #### P T ####[facility] Fnfymkgxkr8106[address] [place], [place] [address]Dr. Farhat Leal PT Coag (PPP) [Time] 13.3 s Critically high 9.0-11.6 [facility] Comment on above: Performed By: #### P T ####[facility] Gsibivuqff60[address] [place], [place] [address]Dr. Farhat Leal SED [facility] 2021 SED RATE 60 mm/hr Critically high <=[address] [facility] Comment on above: Performed By: #### S EDR ####[facility] Yuphrlvxfv3116 [place] [address]Dr. Farhat Leal VANCOMYCIN TROUGHon 11-28-19 22 VANCOMYCIN TROUGH 21.2 ug/ml Critically high 5.0-20.0 Th e [facility] Comment on above: Performed By: #### V ANCT ####[facility] Udafccjspz03[address] [place], [place] [address]Dr. Farhat Leal XR CHEST 1 Von 11-27-2021 XR CHEST 1 V Normal [facility] BNPon 11-26-2021 Natriuretic peptide B (Bld) [Mass/Vol] 64069.0 pg/mL Critically high <=1,800.0 [facility] Comment on above: Performed By: #### B COMMERCIAL REAL ESTATE PARALEGAL, CRP, CMP ####[facility] Cjjawkwyis[address] [place], [place] [address]Dr. Farhat Elvis CBC AUTO DIFFon 11-26-2021 BASO # 0.0 103/ul Normal 0.0-0.1 [facility] Comment on above: Performed By: #### C BC ####[facility] Yobpxtvrnb250[address] [place], [place] [address]Dr. Madelynlorri Leal Basophils/100 WBC (Bld) 0.2 % Normal 0.2-2.0 [facility] Comment on above: Performed By: #### C BC ####[facility] Nxjxnuurlh89[address] [place], [place] [address]Dr. Farhat Elvis EO # 0.0 103/ul Normal 0.0-0.7 [facility] Comment on above: Performed By: #### C BC ####[facility] Jbvqybydus73[address] [place], [place] [address]Dr. Madelynlorri Leal Eosinophils/100 WBC (Bld) 0.3 % Critically low 0.9-7.0 [facility] Comment on above: Performed By: #### C BC ####[facility] Mnwxbobyqw8[address] [place], [place] [address]Dr. Farhat Leal Erythrocyte distribution width (RBC) [Ratio] 13.9 % Normal 11.0-15.0 [facility] Comment on above: Performed By: #### C BC ####[facility] Mmylbtlyxq[address] [place] [address]DrSkylar Leal Hematocrit (Bld) [Volume fraction] 27.3 % Critically low 42.0-54.0 [facility] Comment on above: Performed By: #### C BC ####[facility] Jkvbxrbhxv3198 [place] [address]DrSkylar Leal Hemoglobin (Bld) [Mass/Vol] 8.8 g/dL Critically low 14.0-18.0 [facility] Comment on above: Performed By: #### C BC ####[facility] Hdnmgxvycy8[address] [place], [place] [address]DrSkylar Leal IG # 0.17 10e3/ul Critically high 0.00-0.03 [facility] Comment on above: Performed By: #### C BC ####[facility] Eqpgzltepz17[address] [place], [place] [address]DrSkylar Leal IG % 1.2 % Critically high 0.0-0.[address] [facility] Comment on above: Performed By: #### C BC ####[facility] Klksljvsjh17[address] [place], [place] [address]DrSkylar Leal LYMPH # 0.7 103/ul Critically low 1.2-3.8 [facility] Comment on above: Performed By: #### C BC ####[facility] Zwrqkcdyth9[address] [place], [place] [address]DrSkylar Leal Lymphocytes/100 WBC (Bld) 4.8 % Critically low 20.5-60.0 [facility] Comment on above: Performed By: #### C BC ####[facility] Iehzjxjrrf00[address] [place], [place] [address]DrSkylar Leal MANUAL DIFF REQ NO Normal [facility] Comment on above: Performed By: #### C BC ####[facility] Rsxhnqkcxl0159 [place] [address]DrSkylar Leal MCH (RBC) [Entitic mass] 29.9 pg Normal 25.9-34.0 [facility] Comment on above: Performed By: #### C BC ####[facility] Pyyouyqhjb2660 [place] [address]DrSkylar Leal MCHC (RBC) [Mass/Vol] 32.2 g/dL Normal 29.9-35.2 [facility] Comment on above: Performed By: #### C BC ####[facility] Plmrnouejw4664 [place] [address]DrSkylar Leal MCV (RBC) [Entitic vol] 92.9 fL Normal 80.0-94.0 [facility] Comment on above: Performed By: #### C BC ####[facility] Dgtavjwazy2613[address] [place], [place] [address]DrSkylar Leal MONO # 1.3 103/ul Critically high 0.3-0.[address] [facility] Comment on above: Performed By: #### C BC ####[facility] Hncwildivq345[address] [place], [place] [address]DrSkylar Leal Monocytes/100 WBC (Bld) 9.6 % Normal 1.7-12.0 [facility] Comment on above: Performed By: #### C BC ####[facility] Zjbemdvyxl6[address] [place], [place] [address]DrSkylar Leal NEUT # 11.4 103/ul Critically high 1.4-6.5 [facility] Comment on above: Performed By: #### C BC ####[facility] Koznkmtkvi6[address] [place], [place] [address]DrSkylar Leal Neutrophils/100 WBC (Bld) 83.9 % Critically high 43.0-75.0 [facility] Comment on above: Performed By: #### C BC ####[facility] Jixvumfebd82[address] [place], [place] [address]DrSkylar Leal Platelet mean volume (Bld) [Entitic vol] 9.6 fL Normal 9.5-13.5 [facility] Comment on above: Performed By: #### C BC ####[facility] Vygqdtthie[address] [place], [place] [address]DrSkylar Leal PLT 395 103/ul Normal 150-450 [facility] Comment on above: Performed By: #### C BC ####[facility] Fytquknbkx0882 [place] [phone]. Farhat Leal RBC 2.94 106/ul Critically low 4.70-6.10 [facility] Comment on above: Performed By: #### C BC ####[facility] Sveuxljnae1594 [place] [phone]. Farhat Leal WBC 13.6 103/ul Critically high 4.0-11.0 [facility] Comment on above: Performed By: #### C BC ####[facility] Qtdbelsbwo7701 [place] [phone]. Farhat Elvis CRPon 11-26-2021 CRP [Mass/Vol] mg/L Critically high <=1.0 [facility] Comment on above: Performed By: #### B COMMERCIAL REAL ESTATE PARALEGAL, CRP, CMP ####[facility] Zgeaaulueu[address] [place] [address]Dr. Farhat Elvis PROF 14(COMP METB)on 11-26- 022 Albumin [Mass/Vol] 1.5 g/dL Critically low 3.4-5.0 [facility] Comment on above: Performed By: #### B COMMERCIAL REAL ESTATE PARALEGAL, CRP, CMP ####[facility] Kpyebmyrzg0631 [place] [phone]. Farhat Leal Albumin/Globulin [Mass ratio] 0.4 {ratio} Normal [facility] Comment on above: Performed By: #### B COMMERCIAL REAL ESTATE PARALEGAL, CRP, CMP ####[facility] Omfvbsmfjr7176 [place] [phone]. Farhat Elvis ALP [Catalytic activity/Vol] 88 U/L Normal 46-116 [facility] Comment on above: Performed By: #### B COMMERCIAL REAL ESTATE PARALEGAL, CRP, CMP ####[facility] Yzszdmqfhc6258 [place] [address]Dr. Farhat Leal ALT [Catalytic activity/Vol] 29 U/L Normal 16-63 [facility] Comment on above: Performed By: #### B COMMERCIAL REAL ESTATE PARALEGAL, CRP, CMP ####[facility] Hesryfjdxf0297 [place] [phone]. Farhat Leal Anion gap [Moles/Vol] 13.3 mmol/L Normal [facility] Comment on above: Performed By: #### B COMMERCIAL REAL ESTATE PARALEGAL, CRP, CMP ####[facility] Skdgibaigc2664 [place] [phone]. Farhat Leal AST [Catalytic activity/Vol] 32 U/L Normal 15-37 [facility] Comment on above: Performed By: #### B COMMERCIAL REAL ESTATE PARALEGAL, CRP, CMP ####[facility] Ehvvbtbifz9034 [place] [address]Dr. Farhat Leal Bilirubin [Mass/Vol] 0.6 mg/dL Normal 0.2-1.0 [facility] Comment on above: Performed By: #### B COMMERCIAL REAL ESTATE PARALEGAL, CRP, CMP ####[facility] Fmfwvvuwxt[address] [place] [address]Dr. Farhat Leal Calcium [Mass/Vol] 8.0 mg/dL Critically low 8.5-10.1 [facility] Comment on above: Performed By: #### B COMMERCIAL REAL ESTATE PARALEGAL, CRP, CMP ####[facility] Mapbwjbtkf9357 [place] [address]Dr. Farhat Leal Chloride [Moles/Vol] 98 mmol/L Normal 98-107 [facility] Comment on above: Performed By: #### B COMMERCIAL REAL ESTATE PARALEGAL, CRP, CMP ####[facility] Dijnylvoec6075 [place] [phone]. Farhat Leal CO2 [Moles/Vol] 23.7 mmol/L Normal 21.0-32.0 [facility] Comment on above: Performed By: #### B COMMERCIAL REAL ESTATE PARALEGAL, CRP, CMP ####[facility] Mcsajlesuh1102 [place] [address]Dr. Farhat Leal Creatinine [Mass/Vol] 2.08 mg/dL Critically high 0.70-1.30 [facility] Comment on above: Performed By: #### B COMMERCIAL REAL ESTATE PARALEGAL, CRP, CMP ####[facility] Tsjuuejatx3061 [place] [phone]. Farhat Leal EGFR-AF ERITREAN 38 mL/min/1.73m2 Critically low >=60 [facility] Comment on above: Performed By: #### B COMMERCIAL REAL ESTATE PARALEGAL, CRP, CMP ####[facility] Qfrjfjknxd0297 [place] [address]Dr. Farhat Leal EGFR-NON AF ERITREAN 31 mL/min/1.73m2 Critically low >=60 [facility] Comment on above: Performed By: #### B COMMERCIAL REAL ESTATE PARALEGAL, CRP, CMP ####[facility] Ejjfjzlgnf5[address] [place] [address]Dr. Farhat Leal Globulin (S) [Mass/Vol] 3.7 g/dL Normal [facility] Comment on above: Performed By: #### B COMMERCIAL REAL ESTATE PARALEGAL, CRP, CMP ####[facility] [facility] [address]ral[address] [place] [address]Dr. Farhat Leal Glucose [Mass/Vol] 315 mg/dL Critically high 74-106 T [facility] Comment on above: Performed By: #### B COMMERCIAL REAL ESTATE PARALEGAL, CRP, CMP ####[facility] Wobjexmrvg[address] [place], [place] [address]Dr. Farhat Leal Potassium [Moles/Vol] 4.0 mmol/L Normal 3.5-5.1 [facility] Comment on above: Performed By: #### B COMMERCIAL REAL ESTATE PARALEGAL, CRP, CMP ####[facility] Kedmmtkkjv[address] [place], [place] [address]Dr. Farhat Leal Protein [Mass/Vol] 5.2 g/dL Critically low 6.4-8.2 Th [facility] Comment on above: Performed By: #### B COMMERCIAL REAL ESTATE PARALEGAL, CRP, CMP ####[facility] Siqhxkudru[address] [place], [place] [address]Dr. Farhat Leal Sodium [Moles/Vol] 131 mmol/L Critically low 136-145 Th [facility] Comment on above: Performed By: #### B COMMERCIAL REAL ESTATE PARALEGAL, CRP, CMP ####[facility] Dmbkgtwvzw8[address] [place], [place] [address]Dr. Farhat Leal Urea nitrogen [Mass/Vol] 50.0 mg/dL Critically high 7.0-18.0 [facility] Comment on above: Performed By: #### B COMMERCIAL REAL ESTATE PARALEGAL, CRP, CMP ####[facility] [address]ob[address] [place] [address]Dr. Farhat Leal Urea nitrogen/Creatinine [Mass ratio] 24.0 mg/mg Normal [facility] Comment on above: Performed By: #### B COMMERCIAL REAL ESTATE PARALEGAL, CRP, CMP ####[facility] [address] [place] [address]Dr. Farhat Leal PROTIMEon 11-26-2021 INR Coag (PPP) [Relative time] 1.31 {INR} Normal [facility] Comment on above: Performed By: #### P T ####[facility] Ysltpeqjtv[address] [place] [address]Dr. Farhat Leal INR GUIDELINES SEE BELOW Normal [facility] Comment on above: Result Comment: MALINA RED INR: 2.0 - 3.0 CONDITIONS NOT LISTED BELOW 2.5 - 3.5 FOR PROSTHETIC HEART VALVE REPLACEMENT 2.5 - 3.5 RECURRENT THROMBOSIS Performed By: #### P T ####[facility] Xeubdhsuwj[address] [place], [place] [address]Dr. Farhat Leal PT Coag (PPP) [Time] 13.9 s Critically high 9.0-11.6 [facility] Comment on above: Performed By: #### P T ####[facility] G[address]hsvpjbrp[address] [place], [place] [address]Dr. Madelynlorri Leal SED RATE LAKE LUREERGREN 2021 SED RATE 87 mm/hr Critically high <=[address] [facility] Comment on above: Performed By: #### S EDR ####[facility] Bxertrilio776[address] [place], [place] [address]Dr. Farhat Leal BNPon 11-25-2021 Natriuretic peptide B (Bld) [Mass/Vol] 78254.0 pg/mL Critically high <=1,800.0 [facility] Comment on above: Performed By: #### C MP, BNP, CRP ####[facility] Oedemhxcln[address] [place], [place] [address]Dr. Farhat Leal CBC AUTO DIFFon 11-25-2021 BASO # 0.0 103/ul Normal 0.0-0.1 [facility] Comment on above: Performed By: #### C BC ####[facility] Eg[address]qidq[address] [place] [id number]. Farhat Leal Basophils/100 WBC (Bld) 0.4 % Normal 0.2-2.0 [facility] Comment on above: Performed By: #### C BC ####[facility] Kh[address]qatheo[address] [place] [id number]. Farhat Leal EO # 0.1 103/ul Normal 0.0-0.7 [facility] Comment on above: Performed By: #### C BC ####[facility] Xsktwewgat[address] [place], [place] [id number]. Farhat Leal Eosinophils/100 WBC (Bld) 1.2 % Normal 0.9-7.0 [facility] Comment on above: Performed By: #### C BC ####[facility] Hinaqixwbs3[address] [place], [place] [address]Dr. Farhat Leal Erythrocyte distribution width (RBC) [Ratio] 13.7 % Normal 11.0-15.0 [facility] Comment on above: Performed By: #### C BC ####[facility] Ngywhuhgdc[address] [place], [place] [id number]. Farhat Leal Hematocrit (Bld) [Volume fraction] 29.6 % Critically low 42.0-54.0 [facility] Comment on above: Performed By: #### C BC ####[facility] Uudbbgvycc[address] [place], [place] [address]Dr. Farhat Leal Hemoglobin (Bld) [Mass/Vol] 9.3 g/dL Critically low 14.0-18.0 [facility] Comment on above: Performed By: #### C BC ####[facility] Dyvxorffvr[address] [place], [place] [address]Dr. Farhat Leal IG # 0.15 10e3/ul Critically high 0.00-0.03 [facility] Comment on above: Performed By: #### C BC ####[facility] Aswsabkyds[address] [place], [place] [address]Dr. Farhat Leal IG % 1.4 % Critically high 0.0-0.[address] [facility] Comment on above: Performed By: #### C BC ####[facility] [address]qaxicatjj[address] [place] [id number]. Farhat Leal LYMPH # 0.8 103/ul Critically low 1.2-3.8 [facility] Comment on above: Performed By: #### C BC ####[facility] Smgtdjzcws[address] [place] [phone]. Farhat Leal Lymphocytes/100 WBC (Bld) 7.3 % Critically low 20.5-60.0 [facility] Comment on above: Performed By: #### C BC ####[facility] Dqdtfjzqre[address] [place] [id number]. Farhat Leal MANUAL DIFF REQ NO Normal [facility] Comment on above: Performed By: #### C BC ####[facility] Gayuvtyewv[address] [place] [phone]. Farhat Leal MCH (RBC) [Entitic mass] 29.3 pg Normal 25.9-34.0 [facility] Comment on above: Performed By: #### C BC ####[facility] Xtq[address]elyymn39[address] [place] [id number]. Farhat Leal MCHC (RBC) [Mass/Vol] 31.4 g/dL Normal 29.9-35.2 [facility] Comment on above: Performed By: #### C BC ####[facility] Gelzjwytbk[address] [place] [id number]. Farhat Leal MCV (RBC) [Entitic vol] 93.4 fL Normal 80.0-94.0 [facility] Comment on above: Performed By: #### C BC ####[facility] Impgprtsrm[address] [place] [id number] Leal MONO # 1.3 103/ul Critically high 0.3-0.[address] [facility] Comment on above: Performed By: #### C BC ####[facility] Bwgpopiuwi[address] [place] [phone]. Farhat Leal Monocytes/100 WBC (Bld) 12.3 % Critically high 1.7-12.0 [facility] Comment on above: Performed By: #### C BC ####[facility] Wootszbjil[address] [place] [address]Dr. Farhat Leal NEUT # 8.4 103/ul Critically high 1.4-6.[address] [facility] Comment on above: Performed By: #### C BC ####[facility] Hqijtqbffw[address] [place] [address]Dr. Farhat Leal Neutrophils/100 WBC (Bld) 77.4 % Critically high 43.0-75.0 [facility] Comment on above: Performed By: #### C BC ####[facility] I[address]uxjfyca[address] [place] [address]Dr. Farhat Leal Platelet mean volume (Bld) [Entitic vol] 9.8 fL Normal 9.5-13.5 [facility] Comment on above: Performed By: #### C BC ####[facility] Fveglwyrjr[address] [place] [address]Dr. Farhat Leal PLT 390 103/ul Normal 150-450 [facility] Comment on above: Performed By: #### C BC ####[facility] Uvvfnsutdc[address] [place] [address]Dr. Farhat Leal RBC 3.17 106/ul Critically low 4.70-6.[address] [facility] Comment on above: Performed By: #### C BC ####[facility] C[address]ixtejdfh[address] [place] [address]Dr. Farhat Leal WBC 10.9 103/ul Normal 4.0-11.0 [facility] Comment on above: Performed By: #### C BC ####[facility] Gsqkudfawq[address] [place] [phone] Farhat Elvis CRPon 11-25-2021 CRP 27.2 mg/dL Critically high <=1.[address] [facility] Comment on above: Performed By: #### C MP, BNP, CRP ####[facility] Lfwiwqtwme[address] [place] [phone] Leal PROF 14(COMP METB)on 10-11-2 022 Albumin [Mass/Vol] 1.5 g/dL Critically low 3.4-5.0 [facility] Comment on above: Performed By: #### C MP, BNP, CRP ####[facility] Llryuccjdf[address] [place], [place] [address]Dr. Farhat Leal Albumin/Globulin [Mass ratio] 0.4 {ratio} Normal [facility] Comment on above: Performed By: #### C MP, BNP, CRP ####[facility] Kgxtxgwkfu301[address] [place], [place] [address]Dr. Farhat Leal ALP [Catalytic activity/Vol] 86 U/L Normal 46-116 [facility] Comment on above: Performed By: #### C MP, BNP, CRP ####[facility] Hfhzucxqlx9[address] [place], [place] [address]Dr. Farhat Leal ALT [Catalytic activity/Vol] 34 U/L Normal 16-63 [facility] Comment on above: Performed By: #### C MP, BNP, CRP ####[facility] Jmhckjklpr3040[address] [place], [place] [address]Dr. Farhat Leal Anion gap [Moles/Vol] 17.8 mmol/L Normal [facility] Comment on above: Performed By: #### C MP, BNP, CRP ####[facility] Moueudciwy[address] [place], [place] [address]Dr. Farhat Leal AST [Catalytic activity/Vol] 48 U/L Critically high 15-37 [facility] Comment on above: Performed By: #### C MP, BNP, CRP ####[facility] Whathiodat207[address] [place], [place] [address]Dr. Farhat Leal Bilirubin [Mass/Vol] 0.8 mg/dL Normal 0.2-1.0 [facility] Comment on above: Performed By: #### C MP, BNP, CRP ####[facility] Evmajtjayo0599[address] [place], [place] [address]Dr. Farhat Leal Calcium [Mass/Vol] 8.3 mg/dL Critically low 8.5-10.1 [facility] Comment on above: Performed By: #### C MP, BNP, CRP ####[facility] Okvweeckgv[address] [place] [address]Dr. Farhat Leal Chloride [Moles/Vol] 97 mmol/L Critically low 98-107 [facility] Comment on above: Performed By: #### C MP, BNP, CRP ####[facility] Ojupsrlppo[address] [place] [address]Dr. Farhat Leal CO2 [Moles/Vol] 23.0 mmol/L Normal 21.0-32.0 [facility] Comment on above: Performed By: #### C MP, BNP, CRP ####[facility] Royglgofdo[address] [place] [address]Dr. Farhat Leal Creatinine [Mass/Vol] 1.68 mg/dL Critically high 0.70-1.30 [facility] Comment on above: Performed By: #### C MP, BNP, CRP ####[facility] Esrwvhzekt769[address] [place], [place] [address]Dr. Farhat Leal EGFR-AF ERITREAN 48 mL/min/1.73m2 Critically low >=60 [facility] Comment on above: Performed By: #### C MP, BNP, CRP ####[facility] Waiomliczu[address] [place], [place] [address]Dr. Farhat Leal EGFR-NON AF ERITREAN 40 mL/min/1.73m2 Critically low >=60 [facility] Comment on above: Performed By: #### C MP, BNP, CRP ####[facility] Ijjlnuvmqh78[address] [place], [place] [address]Dr. Farhat Leal Globulin (S) [Mass/Vol] 3.9 g/dL Normal [facility] Comment on above: Performed By: #### C MP, BNP, CRP ####[facility] Htaknfzyqm4[address] [place] [address]Dr. Farhta Leal Glucose [Mass/Vol] 282 mg/dL Critically high 74-106 [facility] Comment on above: Performed By: #### C MP, BNP, CRP ####[facility] Kbdlihwotc075[address] [place], [place] [address]Dr. Farhat Leal Potassium [Moles/Vol] 4.8 mmol/L Normal 3.5-5.1 [facility] Comment on above: Performed By: #### C MP, BNP, CRP ####[facility] Cznwkkjtkd8[address] [place] [address]Dr. Farhat Leal Protein [Mass/Vol] 5.4 g/dL Critically low 6.4-8.2 Th [facility] Comment on above: Performed By: #### C MP, BNP, CRP ####[facility] Ngggbujnqh05[address] [place], [place] [address]Dr. Farhat Leal Sodium [Moles/Vol] 133 mmol/L Critically low 136-145 Th [facility] Comment on above: Performed By: #### C MP, BNP, CRP ####[facility] Qeopuzlhjp59[address] [place], [place] [address]Dr. Farhat Leal Urea nitrogen [Mass/Vol] 40.0 mg/dL Critically high 7.0-18.0 [facility] Comment on above: Performed By: #### C MP, BNP, CRP ####[facility] Nzrldaoynt16[address] [place], [place] [address]Dr. Farhat Leal Urea nitrogen/Creatinine [Mass ratio] 23.8 mg/mg Normal [facility] Comment on above: Performed By: #### C MP, BNP, CRP ####[facility] Pbahycmbsq1738[address] [place], [place] [address]Dr. Farhat Leal PROTIMEon 11-25-2021 INR Coag (PPP) [Relative time] 1.48 {INR} Normal [facility] Comment on above: Performed By: #### P T ####[facility] Btncpvijkf8[address] [place], [place] [address]Dr. Farhat Leal INR GUIDELINES SEE BELOW Normal [facility] Comment on above: Result Comment: MALINA RED INR: 2.0 - 3.0 CONDITIONS NOT LISTED BELOW 2.5 - 3.5 FOR PROSTHETIC HEART VALVE REPLACEMENT 2.5 - 3.5 RECURRENT THROMBOSIS Performed By: #### P T ####[facility] Npgncpohdp80[address] [place], [place] [address]Dr. Farhat Leal PT Coag (PPP) [Time] 15.6 s Critically high 9.0-11.6 [facility] Comment on above: Performed By: #### P T ####[facility] Irfpnjcefi40[address] [place], [place] [address]Dr. Farhat Leal SED RATE WESTERGRENon 2021 SED RATE 76 mm/hr Critically high <=[address] [facility] Comment on above: Performed By: #### S EDR ####[facility] Pxnkoiwmhz9[address] [place], [place] [address]Dr. Farhat Leal BNPon 11-24-2021 Natriuretic peptide B (Bld) [Mass/Vol] 76476.0 pg/mL Critically high <=1,800.0 [facility] Comment on above: Performed By: #### B COMMERCIAL REAL ESTATE PARALEGAL, CMP, CRP ####[facility] Hjvrhoxory[address] [place], [place] [address]Dr. Farhat Leal CBC AUTO DIFFon 11-24-2021 BASO # 0.0 103/ul Normal 0.0-0.1 [facility] Comment on above: Performed By: #### C BC ####[facility] Gpuawfcyqm[address] [place], [place] [address]Dr. Farhat Leal Basophils/100 WBC (Bld) 0.3 % Normal 0.2-2.0 [facility] Comment on above: Performed By: #### C BC ####[facility] Zgjtvkuwec[address] [place], [place] [address]Dr. Farhat Leal EO # 0.2 103/ul Normal 0.0-0.7 [facility] Comment on above: Performed By: #### C BC ####[facility] Dfdbbbvnom08[address] [place], [place] [address]Dr. Farhat Leal Eosinophils/100 WBC (Bld) 1.2 % Normal 0.9-7.0 [facility] Comment on above: Performed By: #### C BC ####[facility] Heaaqikbbn87[address] [place], [place] [address]Dr. Farhat Leal Erythrocyte distribution width (RBC) [Ratio] 13.5 % Normal 11.0-15.0 [facility] Comment on above: Performed By: #### C BC ####[facility] Enkpgkhozq[address] [place] [address]Dr. Farhat Leal Hematocrit (Bld) [Volume fraction] 31.1 % Critically low 42.0-54.0 [facility] Comment on above: Performed By: #### C BC ####[facility] Y[address]nxqvatv[address] [place] [address]Dr. Madelynlorri Leal Hemoglobin (Bld) [Mass/Vol] 10.0 g/dL Critically low 14.0-18.0 [facility] Comment on above: Performed By: #### C BC ####[facility] Dbqmjkhtmg65[address] [place] [address]Dr. Farhat Leal IG # 0.13 10e3/ul Critically high 0.00-0.03 [facility] Comment on above: Performed By: #### C BC ####[facility] Ddwpfgfnbp[address] [place], [place] [address]Dr. Farhat Leal IG % 1.0 % Critically high 0.0-0.[address] [facility] Comment on above: Performed By: #### C BC ####[facility] Kogvnlsflh[address] [place], [place] [address]Dr. Madelynlorri Leal LYMPH # 0.7 103/ul Critically low 1.2-3.8 [facility] Comment on above: Performed By: #### C BC ####[facility] Tlvcwpobwi64[address] [place] [address]Dr. Farhat Leal Lymphocytes/100 WBC (Bld) 4.9 % Critically low 20.5-60.0 [facility] Comment on above: Performed By: #### C BC ####[facility] [address]ikxh[address] [place] [address]Dr. Madelynlorri Leal MANUAL DIFF REQ NO Normal [facility] Comment on above: Performed By: #### C BC ####[facility] Qrqdoknmmr37[address] [place] [address]Dr. Farhat Leal MCH (RBC) [Entitic mass] 29.6 pg Normal 25.9-34.0 [facility] Comment on above: Performed By: #### C BC ####[facility] Riiivthncd[address] [place] [phone]. Farhat Elvis MCHC (RBC) [Mass/Vol] 32.2 g/dL Normal 29.9-35.2 [facility] Comment on above: Performed By: #### C BC ####[facility] Uegpvmbvve[address] [place] [phone]. Farhat Leal MCV (RBC) [Entitic vol] 92.0 fL Normal 80.0-94.0 [facility] Comment on above: Performed By: #### C BC ####[facility] Dpjnxilcvv7[address] [place] [phone]. Farhat Leal MONO # 1.3 103/ul Critically high 0.3-0.[address] [facility] Comment on above: Performed By: #### C BC ####[facility] Lbmzjvplzu[address] [place] [address]Dr. Farhat Leal Monocytes/100 WBC (Bld) 9.6 % Normal 1.7-12.0 [facility] Comment on above: Performed By: #### C BC ####[facility] Uhnulvjygn[address] [place], [place] [address]Dr. Farhat Leal NEUT # 11.2 103/ul Critically high 1.4-6.5 [facility] Comment on above: Performed By: #### C BC ####[facility] Aepdpmrprx[address] [place], [place] [address]Dr. Farhat Leal Neutrophils/100 WBC (Bld) 83.0 % Critically high 43.0-75.0 [facility] Comment on above: Performed By: #### C BC ####[facility] Wezkdmujxu88[address] [place], [place] [address]Dr. Farhat Leal Platelet mean volume (Bld) [Entitic vol] 9.5 fL Normal 9.5-13.5 [facility] Comment on above: Performed By: #### C BC ####[facility] Fmlgpzfirt66[address] [place], [place] [address]Dr. Farhat Leal PLT 395 103/ul Normal 150-450 [facility] Comment on above: Performed By: #### C BC ####[facility] Bnjdxvlatu5[address] [place] [phone]. Farhat Leal RBC 3.38 106/ul Critically low 4.70-6.10 [facility] Comment on above: Performed By: #### C BC ####[facility] Atvsxytxfs8935 [place], [place] [address]Sa. Farhat Leal WBC 13.4 103/ul Critically high 4.0-11.0 [facility] Comment on above: Performed By: #### C BC ####[facility] Woppjegfmv0504 [place] [phone]. Farhat Leal CRPon 11-24-2021 CRP 27.8 mg/dL Critically high <=1.0 [facility] Comment on above: Performed By: #### B COMMERCIAL REAL ESTATE PARALEGAL, CMP, CRP ####[facility] Ohghrnpbtg[address] [place], [place] [address]Dr. Farhat Leal CULTURE ANAEROBICon 11-25-19 22 CULTURE ANAEROBIC Culture Observations : NO GROWTH OF ANAEROBES AT 72 HOURS. [facility] Comment on above: Performed By: #### A NACX ####[facility] Zvylombirl[address] [place], [place] [address]Dr. Farhat Leal CULTURE ANAEROBIC Culture Observations : NO GROWTH OF ANAEROBES AT 72 HOURS. [facility] Comment on above: Performed By: #### A NACX ####[facility] Znogxzkink40[address] [place], [place] [address]Dr. Farhat Leal CULTURE ANAEROBIC Culture Observations : No growth of anaerobes at 72 hours. [facility] Comment on above: Performed By: #### A NACX ####[facility] Ablpgqhkne057[address] [place], [place] [address]Dr. Farhat Leal CULTURE ANAEROBIC Culture Observations : No growth of anaerobes at 72 hours. [facility] Comment on above: Performed By: #### A NACX ####[facility] Ydgxydstlh[address] [place], [place] [address]Dr. Farhat Leal CULTURE URINEon 11-24-2021 CULTURE URINE Culture Observations : NO GROWTH. [facility] Comment on above: Performed By: #### U RCX ####[facility] Yvgvnbltnv[address] [place], [place] [address]Dr. Farhat Leal ECHOCARDIO M/2D COMPLETEon 1 ECHOCARDIO M/2D COMPLETE Normal [facility] ER URINE PROFILEon 2 Bilirubin Ql (U) Negative Normal NEGATIVE [facility] Comment on above: Performed By: #### E RUR ####[facility] Hozxksiqju71[address] [place], [place] [address]Dr. Farhat Leal Clarity (U) CLEAR Normal CLEAR [facility] Comment on above: Performed By: #### E RUR ####[facility] [address]vzxfvemm30[address] [place], [place] [address]Dr. Farhat Leal Color (U) YELLOW Normal YELLOW [facility] Comment on above: Performed By: #### E RUR ####[facility] Bqqnegrgxb[address] [place], [place] [address]Dr. Farhat Leal ERUAHD A micrscopic examination will be performed if indicated. Normal [facility] Comment on above: Performed By: #### E RUR ####[facility] [address]ksvbtqam[address] [place], [place] [address]Dr. Farhat Leal Glucose Ql (U) Negative Normal NEGATIVE [facility] Comment on above: Performed By: #### E RUR ####[facility] Inntqsvvcz[address] [place] [address]Dr. Farhat Leal Hemoglobin Ql (U) Negative Normal NEGATIVE The [facility] Comment on above: Performed By: #### E RUR ####[facility] Hlhomwkbar7[address] [place], [place] [address]Dr. Farhat Leal Ketones Ql (U) TRACE Abnormal NEGATIVE The [facility] Comment on above: Performed By: #### E RUR ####[facility] Vsceereagc1599[address] [place], [place] [address]Dr. Farhat Leal LEUKOCYTES Negative Normal NEGATIVE The [facility] Comment on above: Performed By: #### E RUR ####[facility] Nhehqrhzpg238[address] [place], [place] [address]Dr. Farhat Leal Nitrite Ql (U) Negative Normal NEGATIVE The [facility] Comment on above: Performed By: #### E RUR ####[facility] Ehcdvrukyn6677[address] [place], [place] [address]Dr. Farhat Leal pH (U) 5.5 [pH] Normal 5-9 [facility] Comment on above: Performed By: #### E RUR ####[facility] Ffwbkpfyfp5747[address] [place], [place] [address]Dr. Farhat Leal SPEC GRAVITY 1.015 Normal 1.005-<=1.[address] [place] [address] Comment on above: Performed By: #### E RUR ####[facility] Lmjhqurbjq7726[address] [place], [place] [address]Dr. Farhat Leal UA PROTEIN Negative Normal NEGATIVE/ TRACE [facility] Comment on above: Performed By: #### E RUR ####[facility] Xtgzjipdeq9736[address] [place], [place] [address]Dr. Farhat Leal UR MICRO IND NOT INDICATED Normal [facility] Comment on above: Performed By: #### E RUR ####[facility] Fwqgroaqjt4824[address] [place], [place] [address]Dr. Farhat Leal Urobilinogen Qn (U) 0.2 {Boyd'U}/dL Normal 0.2 - 1. 0 [facility] Comment on above: Performed By: #### E RUR ####[facility] Uowqrulvcd431736 [address] [place], [place] [address]Dr. Farhat Leal GRAM STAINon 11-24-2021 DIPHTHEROIDS Normal The [facility] Comment on above: Performed By: #### G STAIN ####[facility] Eqvpmxjcsk1238[address] [place], [place] [address]Dr. Farhat Leal EPITHELIALS Normal The [facility] Comment on above: Performed By: #### G STAIN ####[facility] Bszxzxqwpw826[address] [place], [place] [address]Dr. Farhat Leal FUNGAL ELEMENTS Normal [facility] Comment on above: Performed By: #### G STAIN ####[facility] Arfzjgkosf0674[address] [place], [place] [address]Dr. Farhat Leal GRAM NEG BACILLI Normal [facility] Comment on above: Performed By: #### G STAIN ####[facility] [address]uzjfcsya[address] [place] [address]Dr. Farhat Leal GRAM NEG DIPPLOCOCCI Normal The [facility] Comment on above: Performed By: #### G STAIN ####[facility] Uvadattjtn2054 [place] [address]Dr. Farhat Leal GRAM POS BACILLI Normal [facility] Comment on above: Performed By: #### G STAIN ####[facility] Ddrbmrgwry5905 [place] [address]Dr. Farhat Leal GRAM POSITIVE COCCI FEW Normal [facility] Comment on above: Performed By: #### G STAIN ####[facility] Jqftwaerey3785[address] [place], [place] [address]Dr. Farhat Leal GRAM STAIN SOURCE RT ACHILLES TENDON Normal The [facility] Comment on above: Performed By: #### G STAIN ####[facility] Ensbnmsjpn0268[address] [place], [place] [address]Dr. Farhat Leal GS_DIPTH Normal The [facility] Comment on above: Performed By: #### G STAIN ####[facility] Evxuchdwwm4823[address] [place], [place] [address]Dr. Farhat Leal WBC RARE Normal The [facility] Comment on above: Performed By: #### G STAIN ####[facility] Iogxhfsedq1547[address] [place], [place] [address]Dr. Farhat Leal COMMENTS NO ORGANISMS OBSERVED Normal The [facility] Comment on above: Performed By: #### G STAIN ####[facility] Tawdrgqztk[address] [place] [address]Dr. Farhat Leal DIPHTHEROIDS Normal The [facility] Comment on above: Performed By: #### G STAIN ####[facility] Btivtinqlf4440[address] [place], [place] [address]Dr. Farhat Leal EPITHELIALS Normal The [facility] Comment on above: Performed By: #### G STAIN ####[facility] Puuytrzakv686236 [address] [place], [place] [address]Dr. Farhat Leal FUNGAL ELEMENTS Normal [facility] Comment on above: Performed By: #### G STAIN ####[facility] Soptnkphxv6958 [place] [address]Dr. Farhat Leal GRAM NEG BACILLI Normal [facility] Comment on above: Performed By: #### G STAIN ####[facility] Huwcbopzoq6601 [place] [address]Dr. Farhat Leal GRAM NEG DIPPLOCOCCI Normal The [facility] Comment on above: Performed By: #### G STAIN ####[facility] Wvpzedvixu0865 [place] [address]Dr. Farhat Leal GRAM POS BACILLI Normal [facility] Comment on above: Performed By: #### G STAIN ####[facility] Nzgsftgazj217[address] [place], [place] [address]Dr. Farhat Leal GRAM POSITIVE COCCI Normal The [facility] Comment on above: Performed By: #### G STAIN ####[facility] Nzkokqlcvl5660[address] [place], [place] [address]Dr. Farhat Leal GRAM STAIN SOURCE RT CALCANEOUS Normal The [facility] Comment on above: Performed By: #### G STAIN ####[facility] Qatptvhnzs7991 [place] [address]Dr. Farhat Leal GS_DIPTH Normal The [facility] Comment on above: Performed By: #### G STAIN ####[facility] Ejtyxfwhkk23[address] [place] [address]Dr. Farhat Leal WBC RARE Normal The [facility] Comment on above: Performed By: #### G STAIN ####[facility] Cihgchcfzn9215 [place] [address]Dr. Farhat Leal DIPHTHEROIDS Normal The [facility] Comment on above: Performed By: #### G STAIN ####[facility] Jslovyyvhe9200 [place] [address]Dr. Farhat Leal EPITHELIALS Normal The [facility] Comment on above: Performed By: #### G STAIN ####[facility] Tkmcflpzgf2369 [place] [address]Dr. Farhat Leal FUNGAL ELEMENTS Normal [facility] Comment on above: Performed By: #### G STAIN ####[facility] Tuvmrbpjuc7903 [place] [id number]. Farhat Leal GRAM NEG BACILLI FEW Normal [facility] Comment on above: Performed By: #### G STAIN ####[facility] Fxtttxeync5502 [place] [id number]. Farhat Leal GRAM NEG DIPPLOCOCCI Normal The [facility] Comment on above: Performed By: #### G STAIN ####[facility] Iembmqcvxp5012 [place] [address]Dr. Farhat Leal GRAM POS BACILLI Normal [facility] Comment on above: Performed By: #### G STAIN ####[facility] Zdckruiyzy3146 [place] [address]Dr. Farhat Leal GRAM POSITIVE COCCI FEW Normal The [facility] Comment on above: Performed By: #### G STAIN ####[facility] Fxawbsbjbh230[address] [place], [place] [address]Dr. Farhat Leal GRAM STAIN SOURCE #2 Rt foot abscess Normal The [facility] Comment on above: Performed By: #### G STAIN ####[facility] Whqyemynvm5352 [place] [address]Dr. Farhat Leal GS_DIPTH Normal The [facility] Comment on above: Performed By: #### G STAIN ####[facility] Vrgzdhycay2848 [place] [address]Dr. Farhat Leal WBC RARE Normal The [facility] Comment on above: Performed By: #### G STAIN ####[facility] Qbzkagfgym3224 [place] [address]Dr. Farhat Leal DIPHTHEROIDS Normal The [facility] Comment on above: Performed By: #### G STAIN ####[facility] Oofblhvzxi3721 [place] [address]Dr. Farhat Leal EPITHELIALS Normal The [facility] Comment on above: Performed By: #### G STAIN ####[facility] Mrmyzzbnah4505 [place] [address]Dr. Farhat Leal FUNGAL ELEMENTS Normal [facility] Comment on above: Performed By: #### G STAIN ####[facility] Zifdhdvlhh7510 [place] [address]Dr. Farhat Leal GRAM NEG BACILLI FEW Normal [facility] Comment on above: Performed By: #### G STAIN ####[facility] Czftylbwkf0359 [place] [address]Dr. Farhat Leal GRAM NEG DIPPLOCOCCI Normal The [facility] Comment on above: Performed By: #### G STAIN ####[facility] Aiftmijbes8542 [place] [address]Dr. Farhat Leal GRAM POS BACILLI Normal [facility] Comment on above: Performed By: #### G STAIN ####[facility] Mysndhgjie3174[address] [place], [place] [address]Dr. Farhat Leal GRAM POSITIVE COCCI FEW Normal [facility] Comment on above: Performed By: #### G STAIN ####[facility] Qqptqbpgte528236 [address] [place], [place] [address]Dr. Farhat Leal GRAM STAIN SOURCE #1 Rt foot abscess Normal The [facility] Comment on above: Performed By: #### G STAIN ####[facility] Gdkwtoonfj6430[address] [place], [place] [address]Dr. Farhat Leal GS_DIPTH Normal The [facility] Comment on above: Performed By: #### G STAIN ####[facility] Flebibubbl235336 [address] [place], [place] [address]Dr. Farhat Leal WBC NONE SEEN Normal The [facility] Comment on above: Performed By: #### G STAIN ####[facility] Gvxalwguuv4970[address] [place], [place] [address]Dr. Farhat Leal POINT OF CARE GLUCOSEon 11-15 0 Glucose [Mass/Vol] 331 mg/dL Critically high 74-106 [facility] Comment on above: Performed By: #### P OCGLUC ####[facility] Ngxdggftjk823436 [address] [place], [place] [address]Dr. Farhat Leal Glucose [Mass/Vol] 236 mg/dL Critically high 74-106 [facility] Comment on above: Performed By: #### P OCGLUC ####[facility] Hfmwwosyqm5516[address] [place], [place] [address]Dr. Farhat Leal PROF 14(COMP METB)on 022 Albumin [Mass/Vol] 1.6 g/dL Critically low 3.4-5.0 [facility] Comment on above: Performed By: #### B COMMERCIAL REAL ESTATE PARALEGAL, CMP, CRP ####[facility] Uvviotdnib7772 [place] [address]Dr. Farhat Leal Albumin/Globulin [Mass ratio] 0.4 {ratio} Normal [facility] Comment on above: Performed By: #### B COMMERCIAL REAL ESTATE PARALEGAL, CMP, CRP ####[facility] Hixabdzmbd6861 [place] [address]Dr. Farhat Leal ALP [Catalytic activity/Vol] 94 U/L Normal 46-116 [facility] Comment on above: Performed By: #### B COMMERCIAL REAL ESTATE PARALEGAL, CMP, CRP ####[facility] Xizkqiodqu1036 [place] [address]Dr. Farhat Leal ALT [Catalytic activity/Vol] 49 U/L Normal 16-63 [facility] Comment on above: Performed By: #### B COMMERCIAL REAL ESTATE PARALEGAL, CMP, CRP ####[facility] Ksvmjjbkst3233[address] [place], [place] [address]Dr. Farhat Leal Anion gap [Moles/Vol] 12.5 mmol/L Normal [facility] Comment on above: Performed By: #### B COMMERCIAL REAL ESTATE PARALEGAL, CMP, CRP ####[facility] Gfmmlcqhvg6708[address] [place], [place] [address]Dr. Farhat Leal AST [Catalytic activity/Vol] 102 U/L Critically high 15-37 [facility] Comment on above: Performed By: #### B COMMERCIAL REAL ESTATE PARALEGAL, CMP, CRP ####[facility] Yrgxnnlvlt6785 [place] [address]Dr. Farhat Leal Bilirubin [Mass/Vol] 0.8 mg/dL Normal 0.2-1.0 [facility] Comment on above: Performed By: #### B COMMERCIAL REAL ESTATE PARALEGAL, CMP, CRP ####[facility] Azexqgelzg3105[address] [place], [place] [address]Dr. Farhat Leal Calcium [Mass/Vol] 8.4 mg/dL Critically low 8.5-10.1 [facility] Comment on above: Performed By: #### B COMMERCIAL REAL ESTATE PARALEGAL, CMP, CRP ####[facility] Cukukwrfot2387 [place] [phone]. Farhat Leal Chloride [Moles/Vol] 96 mmol/L Critically low 98-107 [facility] Comment on above: Performed By: #### B COMMERCIAL REAL ESTATE PARALEGAL, CMP, CRP ####[facility] Oogvvnrlja9479 [place] [address]Dr. Farhat Leal CO2 [Moles/Vol] 24.8 mmol/L Normal 21.0-32.0 [facility] Comment on above: Performed By: #### B COMMERCIAL REAL ESTATE PARALEGAL, CMP, CRP ####[facility] Bvncakqnsc6963 [place] [address]Dr. Farhat Leal Creatinine [Mass/Vol] 1.36 mg/dL Critically high 0.70-1.30 [facility] Comment on above: Performed By: #### B COMMERCIAL REAL ESTATE PARALEGAL, CMP, CRP ####[facility] Ltpzebybjn4986[address] [place], [place] [address]Dr. Farhat Leal EGFR-AF ERITREAN >60 Normal >=60 [facility] Comment on above: Performed By: #### B COMMERCIAL REAL ESTATE PARALEGAL, CMP, CRP ####[facility] Biboeqrerw0679[address] [place], [place] [address]Dr. Farhat Leal EGFR-NON AF ERITREAN 51 mL/min/1.73m2 Critically low >=60 [facility] Comment on above: Performed By: #### B COMMERCIAL REAL ESTATE PARALEGAL, CMP, CRP ####[facility] Pnbgmgcohw7240 [place] [address]Dr. Farhat Leal Globulin (S) [Mass/Vol] 4.1 g/dL Normal [facility] Comment on above: Performed By: #### B COMMERCIAL REAL ESTATE PARALEGAL, CMP, CRP ####[facility] Dpcblahygo6815 [place] [address]Dr. Farhat Leal Glucose [Mass/Vol] 204 mg/dL Critically high 74-106 [facility] Comment on above: Performed By: #### B COMMERCIAL REAL ESTATE PARALEGAL, CMP, CRP ####[facility] Flgglhuzex9940 [place] [address]Dr. Farhat Leal Potassium [Moles/Vol] 4.3 mmol/L Normal 3.5-5.1 [facility] Comment on above: Performed By: #### B COMMERCIAL REAL ESTATE PARALEGAL, CMP, CRP ####[facility] Ekllqkkdwn6676 [place] [address]Dr. Farhat Leal Protein [Mass/Vol] 5.7 g/dL Critically low 6.4-8.2 Th [facility] Comment on above: Performed By: #### B COMMERCIAL REAL ESTATE PARALEGAL, CMP, CRP ####[facility] Cpupuhahyb3787[address] [place], [place] [address]Dr. Farhat Leal Sodium [Moles/Vol] 129 mmol/L Critically low 136-145 Th [facility] Comment on above: Performed By: #### B COMMERCIAL REAL ESTATE PARALEGAL, CMP, CRP ####[facility] Jvxlxcxrnd625[address] [place], [place] [address]Dr. Farhat Leal Urea nitrogen [Mass/Vol] 41.0 mg/dL Critically high 7.0-18.0 [facility] Comment on above: Performed By: #### B COMMERCIAL REAL ESTATE PARALEGAL, CMP, CRP ####[facility] Civgadxkin0565[address] [place], [place] [address]Dr. Farhat Leal Urea nitrogen/Creatinine [Mass ratio] 30.1 mg/mg Normal [facility] Comment on above: Performed By: #### B COMMERCIAL REAL ESTATE PARALEGAL, CMP, CRP ####[facility] Arvqfojxqq8213[address] [place], [place] [address]Dr. Farhat Leal PROTIMEon 11-24-2021 INR Coag (PPP) [Relative time] 2.20 {INR} Normal [facility] Comment on above: Performed By: #### P T ####[facility] Mhjqhsipdp9844[address] [place], [place] [address]Dr. Farhat Leal INR GUIDELINES SEE BELOW Normal [facility] Comment on above: Result Comment: MALINA RED INR: 2.0 - 3.0 CONDITIONS NOT LISTED BELOW 2.5 - 3.5 FOR PROSTHETIC HEART VALVE REPLACEMENT 2.5 - 3.5 RECURRENT THROMBOSIS Performed By: #### P T ####[facility] Arvkwxylhc9437[address] [place], [place] [address]Dr. Farhat Leal PT Coag (PPP) [Time] 22.6 s Critically high 9.0-11.6 [facility] Comment on above: Performed By: #### P T ####[facility] Gwlfykudgc5776 [place] [phone]. Farhat Elvis [facility] 80 mm/hr Critically high <=[address] [facility] Comment on above: Performed By: #### S EDR ####[facility] Iedyaodwii[address] [place], [place] [id number]. Farhat Elvis BLOOD CULTURE ID PANELon A. baumannii Not detected Normal NOT DETECTED [facility] Comment on above: Performed By: #### B CID2 ####[facility] Ticrcvrkbk501[address] [place], [place] [address]Dr. Farhat Elvis Bacteriodes fragilis Not detected Normal NOT DETECTED [facility] Comment on above: Performed By: #### B CID2 ####[facility] Qytaodgfwt2708[address] [place], [place] [address]Dr. Farhat Elvis BCID CONTROLS PASSED Normal [facility] Comment on above: Performed By: #### B CID2 ####[facility] Uyfydzahug[address] [place], [place] [id number]. Farhat Leal BCIDBTHD BLOOD CULTURE BOTTLE INFORMATION Normal [facility] Comment on above: Performed By: #### B CID2 ####[facility] Qxnvpzfggc6100 [place] [id number]. Farhat Leal BCIDHD1 ANTIMICROBIAL RESISTANCE GENES Normal [facility] Comment on above: Performed By: #### B CID2 ####[facility] Lqhxaglxzh4584[address] [place], [place] [address]Dr. Madelynlorri Leal BCIDHD2 SEE BELOW Normal [facility] Comment on above: Result Comment: Note : Antimicrobial resitance can occur via multiple mechanisms. A Not Detected result for the [employer] antomicrobial resistance gene assays does not indicate antimicrobial susceptibility. Subculturing is required for species identification and susceptibility testing of isolates. Performed By: #### B CID2 ####[facility] Lzqbkdnkxm2260[address] [place], [place] [address]Dr. Farhat Elvis BCIDHD3 Positive Normal [facility] Comment on above: Performed By: #### B CID2 ####[facility] Frcpeckwdv9389 [place] [address]Dr. Farhat eLal BCIDHD4 Negative Normal [facility] Comment on above: Performed By: #### B CID2 ####[facility] Iwyczhjgwu3810 [place] [address]Dr. Farhat Leal BCIDHD5 YEAST Normal [facility] Comment on above: Performed By: #### B CID2 ####[facility] Prusdgvqji4130[address] [place], [place] [address]Dr. Farhat Leal Bottle Set: Set 1 Normal [facility] Comment on above: Performed By: #### B CID2 ####[facility] Kcgahgswoy759[address] [place], [place] [address]Dr. Farhat Leal Bottle: Aerobic Normal [facility] Comment on above: Performed By: #### B CID2 ####[facility] Ybmgvcxrnz7678[address] [place], [place] [address]Dr. Farhat Leal C. neoformans/gattii Not detected Normal NOT DETECTED [facility] Comment on above: Performed By: #### B CID2 ####[facility] Uvsigmwcqo385236 [address] [place], [place] [address]Dr. Farhat [facility] Disha albicans Not detected Normal NOT DETECTED [facility] Comment on above: Performed By: #### B CID2 ####[facility] Jusqzviian1923[address] [place], [place] [address]Dr. Farhat Leal Disha auris Not detected Normal NOT DETECTED [facility] Comment on above: Performed By: #### B CID2 ####[facility] Lcjgkrkfba2650[address] [place], [place] [address]Dr. Farhat Leal Disha glabrata Not detected Normal NOT DETECTED [facility] Comment on above: Performed By: #### B CID2 ####[facility] Dtqejgooyt3940[address] [place], [place] [address]Dr. Farhat Leal Disha Krusei Not detected Normal NOT DETECTED [facility] Comment on above: Performed By: #### B CID2 ####[facility] Yotvwyvhnc3166 [place] [address]Dr. Madelynlorri Elvis Disha Parapsilosis Not detected Normal NOT DETECTED [facility] Comment on above: Performed By: #### B CID2 ####[facility] Qmllgxldey4455[address] [place], [place] [address]Dr. Farhat Elvis Disha Tropicalis Not detected Normal NOT DETECTED [facility] Comment on above: Performed By: #### B CID2 ####[facility] Gqobxwsqnk101[address] [place], [place] [address]Dr. Farhat Leal CTX-M Resistant Gene Not Applicable Normal NOT DETECTE D [facility] Comment on above: Performed By: #### B CID2 ####[facility] Azcaaedkre045[address] [place], [place] [address]Dr. Farhat Leal E. Cloacae complex Not detected Normal NOT DETECTED [facility] Comment on above: Performed By: #### B CID2 ####[facility] Gfjdlsmcmd04[address] [place], [place] [address]Dr. Farhat Leal E. faecalis Not detected Normal NOT DETECTED [facility] Comment on above: Performed By: #### B CID2 ####[facility] Knveovjyvx0884[address] [place], [place] [address]Dr. Farhat Leal E. faecium Not detected Normal NOT DETECTED [facility] Comment on above: Performed By: #### B CID2 ####[facility] Sjtkqpnxky4789[address] [address] [place], [place] [address]Dr. Farhat Leal Enterobacteriaceae Not detected Normal NOT DETECTED [facility] Comment on above: Performed By: #### B CID2 ####[facility] Jsibkizrud[address] [place], [place] [address]Dr. Farhat Leal Escherichia coli Not detected Normal NOT DETECTED The [facility] Comment on above: Performed By: #### B CID2 ####[facility] Oijfslycrl15[address] [place], [place] [address]Dr. Farhat Leal H. influenzae Not detected Normal NOT DETECTED The [facility] Comment on above: Performed By: #### B CID2 ####[facility] Hipzrnqrsm7526[address] [place], [place] [address]Dr. Farhat Leal IMP Resistant Gene Not Applicable Normal NOT DETECTED The [facility] Comment on above: Performed By: #### B CID2 ####[facility] [address]jb[address] [place] [address]Dr. Farhat Leal K. oxytoca Not detected Normal NOT DETECTED The [facility] Comment on above: Performed By: #### B CID2 ####[facility] Mjqtbqxczc[address] [place] [address]Dr. Farhat Leal K. pneumoniae Not detected Normal NOT DETECTED The [facility] Comment on above: Performed By: #### B CID2 ####[facility] Cupbaknbrj2547[address] [place], [place] [address]Dr. Farhat Leal Klebsiella aerogenes Not detected Normal NOT DETECTED The [facility] Comment on above: Performed By: #### B CID2 ####[facility] Mrvibyddmf0070[address] [place], [place] [address]Dr. Farhat Leal KPC Resistant Gene Not Applicable Normal NOT DETECTED The [facility] Comment on above: Performed By: #### B CID2 ####[facility] Aovqpuhgpw436[address] [place], [place] [address]Dr. Farhat Leal List. monocytogenes Not detected Normal NOT DETECTED [facility] Comment on above: Performed By: #### B CID2 ####[facility] Nlxtzhvbsb917[address] [place], [place] [address]Dr. Farhat Leal Mcr-1 Resistant Gene Not Applicable Normal NOT DETECTE D The [facility] Comment on above: Performed By: #### B CID2 ####[facility] Ddppxklwnw500[address] [place], [place] [address]Dr. Madelynlan Elvis mecA/C Not Applicable Normal NOT DETECTED The [facility] Comment on above: Performed By: #### B CID2 ####[facility] Aszudvfwkb8260[address] [place], [place] [address]Dr. Farhat Leal mecA/C MREJ Detected Abnormal NOT DETECTED The [facility] Comment on above: Performed By: #### B CID2 ####[facility] Uaahoevncw946236 [address] [place], [place] [address]Dr. Farhat Leal N. meningitidis Not detected Normal NOT DETECTED The [facility] Comment on above: Performed By: #### B CID2 ####[facility] S[address]ypglsxnu[address] [place] [address]Dr. Farhat Leal NDM Resistant Gene Not Applicable Normal NOT DETECTED The [facility] Comment on above: Performed By: #### B CID2 ####[facility] Vwvndinxex[address]13 [place] [address]Dr. Farhat Leal Oxa-48-like Not Applicable Normal NOT DETECTED The [facility] Comment on above: Performed By: #### B CID2 ####[facility] Ldzmclxqfz8713[address] [place], [place] [address]Dr. Farhat Leal Proteus Not detected Normal NOT DETECTED The [facility] Comment on above: Performed By: #### B CID2 ####[facility] Xuuycrbupa4926[address] [place], [place] [address]Dr. Farhat Leal Pseud. aeruginosa Not detected Normal NOT DETECTED The [facility] Comment on above: Performed By: #### B CID2 ####[facility] Qrgxenzlyg677036 [address] [place], [place] [address]Dr. Farhat Leal S. maltophilia Not detected Normal NOT DETECTED The [facility] Comment on above: Performed By: #### B CID2 ####[facility] Sjbabebgdj606336 [address] [place], [place] [address]Dr. Farhat Leal Salmonella Not detected Normal NOT DETECTED The [facility] Comment on above: Performed By: #### B CID2 ####[facility] Mnqedvvfhh719236 [address] [place], [place] [address]Dr. Farhat Leal Seratia marcescens Not detected Normal NOT DETECTED [facility] Comment on above: Performed By: #### B CID2 ####[facility] Fbeupqfddn4207[address] [place], [place] [address]Dr. Farhat Leal Site: Rt Hand Normal The [facility] Comment on above: Performed By: #### B CID2 ####[facility] Fxuwrpiqsr282036 [address] [place], [place] [address]Dr. Farhat Leal Staph. aureus Detected Abnormal NOT DETECTED The [facility] Comment on above: Performed By: #### B CID2 ####[facility] Cghtrugjmy[address] [place], [place] [id number]. Farhat Leal Staph. epidermidis Not detected Normal NOT DETECTED [facility] Comment on above: Performed By: #### B CID2 ####[facility] Mrklkhzfcy889436 [address] [place], [place] [address]Dr. Farhat Leal Staph. lugdunensis Not detected Normal NOT DETECTED [facility] Comment on above: Performed By: #### B CID2 ####[facility] Wczrrxgvfp4236[address] [place], [place] [address]Dr. Farhat Leal Staphylococcus Detected Abnormal NOT DETECTED The [facility] Comment on above: Performed By: #### B CID2 ####[facility] Fcoazrbgao480[address] [place], [place] [address]Dr. Farhat Leal Strep. agalactiae Not detected Normal NOT DETECTED The [facility] Comment on above: Performed By: #### B CID2 ####[facility] Tzvwcqwife3716[address] [place], [place] [address]Dr. Farhat Leal Strep. pneumoniae Not detected Normal NOT DETECTED The [facility] Comment on above: Performed By: #### B CID2 ####[facility] Ttblrldcmc907936 [address] [place], [place] [address]Dr. Farhat Elvis Strep. pyogenes Not detected Normal NOT DETECTED The [facility] Comment on above: Performed By: #### B CID2 ####[facility] Fafoyzhbwj1950[address] [place], [place] [address]Dr. Farhat Leal Streptococcus Not detected Normal NOT DETECTED The [facility] Comment on above: Performed By: #### B CID2 ####[facility] Ylctfdsfvp1480[address] [place], [place] [address]Dr. Farhat Leal Teodoro/B Resist. Gene Not Applicable Normal NOT DETECTED The [facility] Comment on above: Performed By: #### B CID2 ####[facility] Bfjabiklzu399[address] [place], [place] [address]Dr. Farhat Leal VIM Resistant Gene Not Applicable Normal NOT DETECTED The [facility] Comment on above: Performed By: #### B CID2 ####[facility] D[address]vervnimy[address] [place] [address]Dr. Farhat Leal BNPon 11-23-2021 Natriuretic peptide B (Bld) [Mass/Vol] 80451.0 pg/mL Critically high <=1,800.0 [facility] Comment on above: Performed By: #### C MP, CMADM, BNP ####[facility] Ahivsttahp[address] [place] [address]Dr. Farhat Leal CARDIAC AMANDA ADMITon 022 CK [Catalytic activity/Vol] 41 U/L Normal 39-308 The [facility] Comment on above: Performed By: #### C MP, CMADM, BNP ####[facility] Lqtbgmiwtb9524[address] [place], [place] [address]Dr. Farhat Leal CK.MB [Mass/Vol] 0.98 ng/mL Normal <=3.60 [facility] Comment on above: Performed By: #### C MP, CMADM, BNP ####[facility] Wtmiltqxhm947[address] [place], [place] [address]Dr. Farhat Leal HSTROP 30.1 pg/mL Normal 4.0-76.1 The [facility] Comment on above: Result Comment: CUT- OFF POINTS HAVE BEEN ESTABLISHED BASED ON THE FOURTH UNIVERSAL DEFINITIONS OF MYOCARDIALINFARCTION. THE UPPER REFERENCE LIMIT (URL) OF TROPONIN, DEFINED THE 99TH PERCENTILE OFcTnI DISTRIBUTION IN A REFERENCE POPULATION, HAS BEEN CONFIRMED THE DECISION THRESHOLDFOR CA DIAGNOSIS. Performed By: #### C MP, CMADM, BNP ####[facility] Lkeisjqsxz5264[address] [place], [place] [address]Dr. Farhat Leal VALERIA 160 ng/mL Critically high 16-[address] [facility] Comment on above: Performed By: #### C MP, CMADM, BNP ####[facility] B[address]jtpoj[address] [place] [address]Dr. Farhat Leal CBC AUTO DIFFon 11-23-2021 BASO # 0.0 103/ul Normal 0.0-0.1 [facility] Comment on above: Performed By: #### C BC ####[facility] Cqyzxmkjxg358[address] [place], [place] [address]Dr. Farhat Leal Basophils/100 WBC (Bld) 0.2 % Normal 0.2-2.0 The [facility] Comment on above: Performed By: #### C BC ####[facility] Zoslhdfkjt24[address] [place], [place] [address]Dr. Farhat Leal EO # 0.0 103/ul Normal 0.0-0.7 The [facility] Comment on above: Performed By: #### C BC ####[facility] Yyfbvpeaha423[address] [place], [place] [address]Dr. Farhat Leal Eosinophils/100 WBC (Bld) 0.1 % Critically low 0.9-7.0 The [facility] Comment on above: Performed By: #### C BC ####[facility] Uoqnhdunuu[address] [place], [place] [address]Dr. Farhat Leal Erythrocyte distribution width (RBC) [Ratio] 13.4 % Normal 11.0-15.0 The [facility] Comment on above: Performed By: #### C BC ####[facility] Mngvmgkkhu2660[address] [place], [place] [address]Dr. Farhat Leal Hematocrit (Bld) [Volume fraction] 31.6 % Critically low 42.0-54.0 [facility] Comment on above: Performed By: #### C BC ####[facility] Benqymmbsb319[address] [place], [place] [address]Dr. Farhat Leal Hemoglobin (Bld) [Mass/Vol] 10.4 g/dL Critically low 14.0-18.0 The [facility] Comment on above: Performed By: #### C BC ####[facility] Yeizzxrdgk762[address] [place], [place] [address]Dr. Farhat Leal IG # 0.11 10e3/ul Critically high 0.00-0.03 The [facility] Comment on above: Performed By: #### C BC ####[facility] Jfnahiwygx5567[address] [place], [place] [address]Dr. Farhat Leal IG % 0.7 % Critically high 0.0-0.[address] [facility] Comment on above: Performed By: #### C BC ####[facility] Vxfuziwjuz4[address] [place], [place] [address]Dr. Farhat Leal LYMPH # 0.5 103/ul Critically low 1.2-3.8 The [facility] Comment on above: Performed By: #### C BC ####[facility] S[address]jofatsu[address] [place] [address]Dr. Farhat Elvis Lymphocytes/100 WBC (Bld) 2.8 % Critically low 20.5-60.0 The [facility] Comment on above: Performed By: #### C BC ####[facility] Zplcvqciiu[address] [place] [address]Dr. Farhat Leal MANUAL DIFF REQ NO Normal [facility] Comment on above: Performed By: #### C BC ####[facility] Dmmfnjnvpl64[address] [place] [address]Dr. Farhat Elvis MCH (RBC) [Entitic mass] 29.8 pg Normal 25.9-34.0 The [facility] Comment on above: Performed By: #### C BC ####[facility] Rnoyhujcxn[address] [place] [address]Dr. Madelynlorri Leal MCHC (RBC) [Mass/Vol] 32.9 g/dL Normal 29.9-35.2 The [facility] Comment on above: Performed By: #### C BC ####[facility] Dncjjtkzvf4[address] [place] [address]Dr. Farhat Leal MCV (RBC) [Entitic vol] 90.5 fL Normal 80.0-94.0 The [facility] Comment on above: Performed By: #### C BC ####[facility] W[address]wfjokw[address] [place] [address]Dr. Farhat Leal MONO # 1.3 103/ul Critically high 0.3-0.[address] [facility] Comment on above: Performed By: #### C BC ####[facility] Tjbjcwjvuw38[address] [place] [address]Dr. Farhat Leal Monocytes/100 WBC (Bld) 8.3 % Normal 1.7-12.0 The [facility] Comment on above: Performed By: #### C BC ####[facility] W[address]mhws[address] [place] [id number]. Farhat Leal NEUT # 13.9 103/ul Critically high 1.4-6.5 [facility] Comment on above: Performed By: #### C BC ####[facility] Bfdpeufnud7[address] [place] [id number]. Farhat Leal Neutrophils/100 WBC (Bld) 87.9 % Critically high 43.0-75.0 The [facility] Comment on above: Performed By: #### C BC ####[facility] Gxvrpkzspz24[address] [place] [address]Dr. Farhat Leal Platelet mean volume (Bld) [Entitic vol] 9.3 fL Critically low 9.5-13.5 The [facility] Comment on above: Performed By: #### C BC ####[facility] Voevzqmwgy[address] [place] [address]Dr. Farhat Leal PLT 390 103/ul Normal 150-450 The [facility] Comment on above: Performed By: #### C BC ####[facility] Nkrjigdaxb[address] [place], [place] [address]Dr. Farhat Leal RBC 3.49 106/ul Critically low 4.70-6.[address] [facility] Comment on above: Performed By: #### C BC ####[facility] Sfulnsuyqq5[address] [place] [address]Dr. Farhat Leal WBC 15.9 103/ul Critically high 4.0-11.0 [facility] Comment on above: Performed By: #### C BC ####[facility] Pvpnnrxeee[address] [place] [address]Dr. Farhat Leal CT HEAD WO CONon 11-23-2021 CT HEAD WO CON Normal The [facility] CULTURE BLOODon 11-23-2021 Microscopic examination of blood, culture Culture Observations: NO GROWTH AT 5 DAYS. Normal The [facility] Comment on above: Performed By: #### B LDCX2 ####[facility] Znllhxmstj[address] [place] [address]Dr. Farhat Leal Covid-19 PCR (CVDTB)on SARS-CoV-2 (COVID-19) RNA JOSH+probe Ql (Unsp spec) Not detected Normal NOT DETECTED The [facility] Comment on above: Result Comment: [...] for this test is supported by the [place] and [place] Service's declaration that [...] be used). Performed By: #### C VDTBH ####[facility] Spkpumtnve14[address] [place], [place] [address]Dr. Farhat Leal LACTATE/LACTIC ACIDon 2021 Lactate [Moles/Vol] 1.3 mmol/L Normal 0.4-1.9 [facility] Comment on above: Performed By: #### L ACT ####[facility] Akwuwrwrez825[address] [place], [place] [address]Dr. Farhat Leal Lactate [Moles/Vol] 1.3 mmol/L Normal 0.4-1.9 [facility] Comment on above: Performed By: #### L ACT ####[facility] Vbcgefiwyz024[address] [place], [place] [address]Dr. Farhat Leal POINT OF CARE GLUCOSEon Glucose [Mass/Vol] 252 mg/dL Critically high 74-106 [facility] Comment on above: Performed By: #### P OCGLUC ####[facility] Fidjmkyplg[address] [place] [address]Dr. Farhat Leal PROF 14(COMP METB)on 022 Albumin [Mass/Vol] 1.6 g/dL Critically low 3.4-5.0 Th e [facility] Comment on above: Performed By: #### C MP, CMADM, BNP ####[facility] Enkrncbfqq4[address] [place] [address]Dr. Madelynlorri Elvis Albumin/Globulin [Mass ratio] 0.4 {ratio} Normal [facility] Comment on above: Performed By: #### C MP, CMADM, BNP ####[facility] Pynpdyqoze[address] [place], [place] [address]Dr. Farhat Elvis ALP [Catalytic activity/Vol] 98 U/L Normal 46-116 [facility] Comment on above: Performed By: #### C MP, CMADM, BNP ####[facility] Plwxooosus4839[address] [place], [place] [address]Dr. Farhat Leal ALT [Catalytic activity/Vol] 52 U/L Normal 16-63 [facility] Comment on above: Performed By: #### C MP, CMADM, BNP ####[facility] Iftwypqtbd[address] [place], [place] [address]Dr. Farhat Leal Anion gap [Moles/Vol] 9.8 mmol/L Normal [facility] Comment on above: Performed By: #### C MP, CMADM, BNP ####[facility] Rzeadrkebh[address] [place], [place] [address]Dr. Farhat Leal AST [Catalytic activity/Vol] 122 U/L Critically high 15-37 [facility] Comment on above: Performed By: #### C MP, CMADM, BNP ####[facility] Kxuzslmzch[address] [place], [place] [address]Dr. Farhat Leal Bilirubin [Mass/Vol] 0.7 mg/dL Normal 0.2-1.0 [facility] Comment on above: Performed By: #### C MP, CMADM, BNP ####[facility] Cpvjichshp309[address] [place], [place] [address]Dr. Farhat Leal Calcium [Mass/Vol] 8.6 mg/dL Normal 8.5-10.1 [facility] Comment on above: Performed By: #### C MP, CMADM, BNP ####[facility] Hdsyxtygkw[address] [place] [address]Dr. Farhat Leal Chloride [Moles/Vol] 95 mmol/L Critically low 98-107 [facility] Comment on above: Performed By: #### C MP, CMADM, BNP ####[facility] Calbxynovi3[address] [place] [address]Dr. Farhat Leal CO2 [Moles/Vol] 29.6 mmol/L Normal 21.0-32.0 [facility] Comment on above: Performed By: #### C MP, CMADM, BNP ####[facility] Jkwmjdbkdl90[address] [place] [address]Dr. Farhat Leal Creatinine [Mass/Vol] 1.49 mg/dL Critically high 0.70-1.30 [facility] Comment on above: Performed By: #### C MP, CMADM, BNP ####[facility] Vixnfztvmc[address] [place], [place] [address]Dr. Farhat Elvis EGFR-AF ERITREAN 55 mL/min/1.73m2 Critically low >=60 [facility] Comment on above: Performed By: #### C MP, CMADM, BNP ####[facility] Sttgyhrcca[address] [place] [address]Dr. Farhat Leal EGFR-NON AF ERITREAN 46 mL/min/1.73m2 Critically low >=60 [facility] Comment on above: Performed By: #### C MP, CMADM, BNP ####[facility] Djvqomznaw[address] [place] [address]Dr. Farhat Leal Globulin (S) [Mass/Vol] 4.3 g/dL Normal [facility] Comment on above: Performed By: #### C MP, CMADM, BNP ####[facility] Ltcfzsygld85[address] [place] [address]Dr. Farhat Leal Glucose [Mass/Vol] 213 mg/dL Critically high 74-106 [facility] Comment on above: Performed By: #### C MP, CMADM, BNP ####[facility] Pxvzvnmknw80[address] [place] [address]Dr. Farhat Leal Potassium [Moles/Vol] 4.4 mmol/L Normal 3.5-5.1 [facility] Comment on above: Performed By: #### C FATMATA MARROQUINDM, BNP ####[facility] Exipyyjbno[address] [place] [address]Dr. Farhat Leal Protein [Mass/Vol] 5.9 g/dL Critically low 6.4-8.2 Th [facility] Comment on above: Performed By: #### C CARA CMADM, BNP ####[facility] Bxzchrdmus7824[address] [place], [place] [address]Dr. Farhat Leal Sodium [Moles/Vol] 130 mmol/L Critically low 136-145 Th [facility] Comment on above: Performed By: #### C FATMATA MARROQUINDM, BNP ####[facility] Kcehuffehv4[address] [place], [place] [address]Dr. Farhat Leal Urea nitrogen [Mass/Vol] 46.0 mg/dL Critically high 7.0-18.0 [facility] Comment on above: Performed By: #### C ANTWAN MARROQUIN, BNP ####[facility] Esfzbgrhmb778[address] [place], [place] [address]Dr. Farhat Leal Urea nitrogen/Creatinine [Mass ratio] 30.9 mg/mg Normal [facility] Comment on above: Performed By: #### C ANTWAN MARROQUIN, BNP ####[facility] Ziyopvaltk124[address] [place], [place] [address]Dr. Farhat Leal PROTIMEon 11-23-2021 INR Coag (PPP) [Relative time] 2.55 {INR} Normal [facility] Comment on above: Performed By: #### P TT, PT ####[facility] Iqnllgxhts8[address] [place], [place] [address]Dr. Farhat Leal INR GUIDELINES SEE BELOW Normal [facility] Comment on above: Result Comment: MALINA RED INR: 2.0 - 3.0 CONDITIONS NOT LISTED BELOW 2.5 - 3.5 FOR PROSTHETIC HEART VALVE REPLACEMENT 2.5 - 3.5 RECURRENT THROMBOSIS Performed By: #### P TT, PT ####[facility] Ruhogjehbh[address] [place], [place] [address]Dr. Farhat Leal PT Coag (PPP) [Time] 25.9 s Critically high 9.0-11.6 [facility] Comment on above: Performed By: #### P TT, PT ####[facility] Eqbvzkwuyb[address] [place] [id number]. Farhat Leal PTTon 11-23-2021 aPTT Coag (Bld) [Time] 39.9 s Critically high 22.3-36. 2 [facility] Comment on above: Performed By: #### P TT, PT ####[facility] Ryqsjossof4[address] [place], [place] [address]Dr. Farhat Leal XR CHEST 1 Von 11-23-2021 XR CHEST 1 V Normal [facility] XR HEEL RT 2Von 11-23-2021 XR HEEL RT 2V Normal [facility] XR FOOT RT MIN 3 VIEWSon XR FOOT RT MIN 3 VIEWS Normal [facility] US ARTERY LEG RTon US ARTERY LEG RT Normal [facility] CBC AUTO DIFFon 09-24-2021 BASO # 0.1 103/ul Normal 0.0-0.1 [facility] Comment on above: Performed By: #### C BC ####[facility] Ghbzaqcjgg13[address] [place], [place] [address]Dr. Farhat Elvis Basophils/100 WBC (Bld) 0.7 % Normal 0.2-2.0 [facility] Comment on above: Performed By: #### C BC ####[facility] Fgddlcdscd[address] [place], [place] [address]Dr. Farhat Elvis EO # 0.3 103/ul Normal 0.0-0.7 [facility] Comment on above: Performed By: #### C BC ####[facility] Gnsnfykmfq[address] [place], [place] [address]Dr. Farhat Elvis Eosinophils/100 WBC (Bld) 3.9 % Normal 0.9-7.0 [facility] [facility] Comment on above: Performed By: #### C BC ####[facility] Lcansttabb2939[address] [place], [place] [address]Dr. Farhat Elvis Erythrocyte distribution width (RBC) [Ratio] 12.6 % Normal 11.0-15.0 [facility] Comment on above: Performed By: #### C BC ####[facility] Spoghowbvn[address] [place] [address]DrSkylar Leal Hematocrit (Bld) [Volume fraction] 38.9 % Critically low 42.0-54.0 [facility] Comment on above: Performed By: #### C BC ####[facility] Ghtxhryjyh8[address] [place], [place] [address]DrSkylar Leal Hemoglobin (Bld) [Mass/Vol] 12.8 g/dL Critically low 14.0-18.0 [facility] Comment on above: Performed By: #### C BC ####[facility] Pyriqanttf86[address] [place], [place] [address]DrSkylar Leal IG # 0.10 10e3/ul Critically high 0.00-0.03 [facility] Comment on above: Performed By: #### C BC ####[facility] Pmbamibwuv025[address] [place], [place] [address]DrSkylar Leal IG % 1.2 % Critically high 0.0-0.[address] [facility] Comment on above: Performed By: #### C BC ####[facility] Amzpgftvnq9889[address] [place], [place] [address]DrSkyalr Leal LYMPH # 2.1 103/ul Normal 1.2-3.8 [facility] Comment on above: Performed By: #### C BC ####[facility] Jlsmftnmdt2876[address] [place], [place] [address]DrSkylar Leal Lymphocytes/100 WBC (Bld) 25.9 % Normal 20.5-60.0 [facility] Comment on above: Performed By: #### C BC ####[facility] Uifevvxjkw423[address] [place], [place] [address]DrSkylar Leal MANUAL DIFF REQ NO Normal [facility] Comment on above: Performed By: #### C BC ####[facility] Ecmddihbyk1208[address] [place], [place] [address]DrSkylar Leal MCH (RBC) [Entitic mass] 31.1 pg Normal 25.9-34.0 [facility] Comment on above: Performed By: #### C BC ####[facility] Niuesuglla[address] [place] [address]DrSkylar Leal MCHC (RBC) [Mass/Vol] 32.9 g/dL Normal 29.9-35.2 [facility] Comment on above: Performed By: #### C BC ####[facility] Dlptpukayw[address] [place] [address]DrSkylar Leal MCV (RBC) [Entitic vol] 94.6 fL Critically high 80.0-94.0 [facility] Comment on above: Performed By: #### C BC ####[facility] Cqszxgwonq9156[address] [place], [place] [address]DrSkylar Leal MONO # 1.2 103/ul Critically high 0.3-0.[address] [facility] Comment on above: Performed By: #### C BC ####[facility] Nbcrffufxp738[address] [place], [place] [address]DrSkylar Leal Monocytes/100 WBC (Bld) 14.1 % Critically high 1.7-12.0 [facility] Comment on above: Performed By: #### C BC ####[facility] Valpkqzjzq0019[address] [place], [place] [address]DrSkylar Leal NEUT # 4.4 103/ul Normal 1.4-6.5 [facility] Comment on above: Performed By: #### C BC ####[facility] Lgtielibwa5067[address] [place], [place] [address]DrSkylar Leal Neutrophils/100 WBC (Bld) 54.2 % Normal 43.0-75.0 [facility] Comment on above: Performed By: #### C BC ####[facility] Wcnrsjryzt7708[address] [place], [place] [address]DrSkylar Leal Platelet mean volume (Bld) [Entitic vol] 9.9 fL Normal 9.5-13.5 [facility] Comment on above: Performed By: #### C BC ####[facility] Siebawssax1230[address] [place], [place] [address]Dr. Farhat Leal PLT 224 103/ul Normal 150-450 [facility] Comment on above: Performed By: #### C BC ####[facility] Gvhdgtnmck350[address] [place] [address]Dr. Farhat Leal RBC 4.11 106/ul Critically low 4.70-6.[address] [facility] Comment on above: Performed By: #### C BC ####[facility] Ejziusajzx[address] [place] [address]Dr. Farhat Leal WBC 8.2 103/ul Normal 4.0-11.0 [facility] Comment on above: Performed By: #### C BC ####[facility] Lmogeqjomo2747[address] [place], [place] [address]DrSkylar Leal PROF CHEM 8 (BAS METB)on Anion gap [Moles/Vol] 9.6 mmol/L Normal [facility] Comment on above: Performed By: #### B MP ####[facility] Yemcdxhnbi9025[address] [place], [place] [address]Dr. Farhat Leal Calcium [Mass/Vol] 8.6 mg/dL Normal 8.5-10.1 [facility] Comment on above: Performed By: #### B MP ####[facility] Ubyvdrlfto793[address] [place], [place] [address]Dr. Farhat Leal Chloride [Moles/Vol] 94 mmol/L Critically low 98-107 [facility] Comment on above: Performed By: #### B MP ####[facility] Bahzlzavxv5318[address] [place], [place] [address]DrSkylar Leal CO2 [Moles/Vol] 28.1 mmol/L Normal 21.0-32.0 [facility] Comment on above: Performed By: #### B MP ####[facility] Jkgjgegfbh3516[address] [place], [place] [address]Dr. Farhat Leal Creatinine [Mass/Vol] 1.91 mg/dL Critically high 0.70-1.30 [facility] Comment on above: Performed By: #### B MP ####[facility] Upgtcxmajj05[address] [place], [place] [address]Dr. Madelynlorri Leal EGFR-AF ERITREAN 42 mL/min/1.73m2 Critically low >=60 [facility] Comment on above: Performed By: #### B MP ####[facility] Dojnzfcsnj[address] [place] [address]Dr. Farhat Leal EGFR-NON AF ERITREAN 34 mL/min/1.73m2 Critically low >=60 [facility] Comment on above: Performed By: #### B MP ####[facility] Ecglgrfaku7339[address] [place], [place] [address]Dr. Madelynlorri Elvis Glucose [Mass/Vol] 314 mg/dL Critically high 74-106 [facility] Comment on above: Performed By: #### B MP ####[facility] Bvprtynpbx5349[address] [place], [place] [address]Dr. Farhat Leal Potassium [Moles/Vol] 4.7 mmol/L Normal 3.5-5.1 [facility] Comment on above: Performed By: #### B MP ####[facility] Grcijsfiwz0880[address] [place], [place] [address]Dr. Farhat Leal Sodium [Moles/Vol] 127 mmol/L Critically low 136-145 [facility] Comment on above: Performed By: #### B MP ####[facility] Itkvxofpxx7499[address] [place], [place] [address]Dr. Madelynlorri Elvis Urea nitrogen [Mass/Vol] 79.0 mg/dL Critically high 7.0-18.0 [facility] Comment on above: Result Comment: repe ated Performed By: #### B MP ####[facility] Dwwpgrvpkc3858[address] [place], [place] [address]Dr. Farhat Leal Urea nitrogen/Creatinine [Mass ratio] 41.4 mg/mg Normal [facility] Comment on above: Performed By: #### B MP ####[facility] Jykbxakbnl801[address] [place], [place] [address]Dr. Farhat Leal PTT HEPARIN MONITORon 2021 aPTT Coag (Bld) [Time] 42.7 s Normal 39.5-54.2 [facility] Comment on above: Performed By: #### P TTHEP ####[facility] Yvcsxbqvuf[address] [place] [id number]. Farhat Leal aPTT Coag (Bld) [Time] 56.7 s Critically high 39.5-54. 2 [facility] Comment on above: Performed By: #### P TTHEP ####[facility] Iqtxnmozix44[address] [place] [address]Dr. Farhat Elvis CBC AUTO DIFFon 09-23-2021 BASO # 0.1 103/ul Normal 0.0-0.1 [facility] Comment on above: Performed By: #### C BC ####[facility] Aeuvyoykbd7396[address] [place], [place] [address]Dr. Farhat Leal Basophils/100 WBC (Bld) 0.6 % Normal 0.2-2.0 [facility] Comment on above: Performed By: #### C BC ####[facility] Csalkfhjwc1924[address] [place], [place] [address]Dr. Farhat Leal EO # 0.2 103/ul Normal 0.0-0.7 [facility] Comment on above: Performed By: #### C BC ####[facility] Spwztbqmoo4328[address] [place], [place] [address]Dr. Madelynlorri Leal Eosinophils/100 WBC (Bld) 2.6 % Normal 0.9-7.0 [facility] Comment on above: Performed By: #### C BC ####[facility] Isdscakrei13[address] [place], [place] [address]Dr. Farhat Leal Erythrocyte distribution width (RBC) [Ratio] 12.4 % Normal 11.0-15.0 [facility] Comment on above: Performed By: #### C BC ####[facility] Wpbofrgukp9067[address] [place], [place] [address]Dr. Farhat Leal Hematocrit (Bld) [Volume fraction] 38.4 % Critically low 42.0-54.0 [facility] Comment on above: Performed By: #### C BC ####[facility] Qenovkchjq7915[address] [place], [place] [address]Dr. Farhat Leal Hemoglobin (Bld) [Mass/Vol] 12.8 g/dL Critically low 14.0-18.0 [facility] Comment on above: Performed By: #### C BC ####[facility] Iydoozwovg32[address] [place] [address]Dr. Farhat Leal IG # 0.06 10e3/ul Critically high 0.00-0.03 [facility] Comment on above: Performed By: #### C BC ####[facility] Omayztjazn4[address] [place] [address]Dr. Farhat Leal IG % 0.8 % Critically high 0.0-0.5 [facility] Comment on above: Performed By: #### C BC ####[facility] Rtaquxzrbz[address] [place] [address]Dr. Farhat Leal LYMPH # 1.5 103/ul Normal 1.2-3.8 [facility] Comment on above: Performed By: #### C BC ####[facility] Otlfnkuzsf67[address] [place] [address]Dr. Farhat Leal Lymphocytes/100 WBC (Bld) 19.7 % Critically low 20.5-60.0 [facility] Comment on above: Performed By: #### C BC ####[facility] Xsuufzfyni[address] [place] [address]Dr. Farhat Leal MANUAL DIFF REQ NO Normal [facility] Comment on above: Performed By: #### C BC ####[facility] Eaapigtslq56[address] [place] [address]DrSkylar Leal MCH (RBC) [Entitic mass] 31.6 pg Normal 25.9-34.0 [facility] Comment on above: Performed By: #### C BC ####[facility] Sntrtjifie0918 [place] [address]DrSkylar Leal MCHC (RBC) [Mass/Vol] 33.3 g/dL Normal 29.9-35.2 [facility] Comment on above: Performed By: #### C BC ####[facility] Wkprzmfspf16[address] [place] [address]DrSkylar Leal MCV (RBC) [Entitic vol] 94.8 fL Critically high 80.0-94.0 [facility] Comment on above: Performed By: #### C BC ####[facility] Mnponfcoyc14[address] [place] [address]DrSkylar Joshilorri Elvis MONO # 1.0 103/ul Critically high 0.3-0.[address] [facility] Comment on above: Performed By: #### C BC ####[facility] Aheniowlra5217 [place] [address]DrSkylar Leal Monocytes/100 WBC (Bld) 13.0 % Critically high 1.7-12.0 [facility] Comment on above: Performed By: #### C BC ####[facility] Kzjgytbqel[address] [place], [place] [address]DrSkylar Joshilorri Elvis NEUT # 4.9 103/ul Normal 1.4-6.5 [facility] Comment on above: Performed By: #### C BC ####[facility] Vlmxxnyjyw[address] [place], [place] [address]DrSkylar Leal Neutrophils/100 WBC (Bld) 63.3 % Normal 43.0-75.0 [facility] Comment on above: Performed By: #### C BC ####[facility] Vbshaafodz6933[address] [place], [place] [address]DrSkylar Leal Platelet mean volume (Bld) [Entitic vol] 10.7 fL Normal 9.5-13.5 [facility] Comment on above: Performed By: #### C BC ####[facility] Fpmicqigsw[address] [place] [address]Dr. Farhat Leal PLT 205 103/ul Normal 150-450 [facility] Comment on above: Performed By: #### C BC ####[facility] Llckbyvprl1178 [place] [id number] Leal RBC 4.05 106/ul Critically low 4.70-6.[address] [facility] Comment on above: Performed By: #### C BC ####[facility] Vxvxngajxb3761 [place] [id number] Leal WBC 7.7 103/ul Normal 4.0-11.0 [facility] Comment on above: Performed By: #### C BC ####[facility] Vygzgnnrkr8433 [place] [address]Dr. Farhat Leal PROF CHEM 8 (BAS METB)on Anion gap [Moles/Vol] 15.5 mmol/L Normal [facility] Comment on above: Performed By: #### B MP ####[facility] Jjgpqbyfyh9[address] [place], [place] [address]Dr. Farhat Leal Calcium [Mass/Vol] 9.1 mg/dL Normal 8.5-10.1 [facility] Comment on above: Performed By: #### B MP ####[facility] Scmejbiedv3336[address] [place], [place] [address]Dr. Farhat Leal Chloride [Moles/Vol] 92 mmol/L Critically low 98-107 [facility] Comment on above: Performed By: #### B MP ####[facility] Ldzmgolpxu9026[address] [place], [place] [address]Dr. Farhat Leal CO2 [Moles/Vol] 28.5 mmol/L Normal 21.0-32.0 [facility] Comment on above: Performed By: #### B MP ####[facility] Gnnlvsvdjw5067[address] [place], [place] [address]DrSkylar Leal Creatinine [Mass/Vol] 1.84 mg/dL Critically high 0.70-1.30 [facility] Comment on above: Performed By: #### B MP ####[facility] Ejropfffvc776236 [address] [place], [place] [address]DrSkylar Leal EGFR-AF ERITREAN 44 mL/min/1.73m2 Critically low >=60 [facility] Comment on above: Performed By: #### B MP ####[facility] Dtzlemlyiv4867[address] [place], [place] [address]Dr. Farhat Leal EGFR-NON AF ERITREAN 36 mL/min/1.73m2 Critically low >=60 [facility] Comment on above: Performed By: #### B MP ####[facility] Mibazyeazy6488[address] [place], [place] [address]DrSkylar Leal Glucose [Mass/Vol] 267 mg/dL Critically high 74-106 [facility] Comment on above: Performed By: #### B MP ####[facility] Jgiobdzzml698[address] [place], [place] [address]Dr. Farhat Leal Potassium [Moles/Vol] 5.0 mmol/L Normal 3.5-5.1 [facility] Comment on above: Performed By: #### B MP ####[facility] Kvtggxmzga7314[address] [place], [place] [address]Dr. Madelynlorri Elvis Sodium [Moles/Vol] 131 mmol/L Critically low 136-145 Th [facility] Comment on above: Performed By: #### B MP ####[facility] Exqqtagduw2749[address] [place], [place] [address]Dr. Farhat Elvis Urea nitrogen [Mass/Vol] 76.0 mg/dL Critically high 7.0-18.0 [facility] Comment on above: Performed By: #### B MP ####[facility] Guiquahrsv7156[address] [place], [place] [address]Dr. Madelynlorri Elvis Urea nitrogen/Creatinine [Mass ratio] 41.3 mg/mg Normal [facility] Comment on above: Performed By: #### B MP ####[facility] Warcmghigq1156[address] [place], [place] [address]Dr. Farhat Elvis PTT HEPARIN MONITORon 2021 aPTT Coag (Bld) [Time] 57.2 s Critically high 39.5-54. 2 [facility] Comment on above: Performed By: #### P TTHEP ####[facility] Vstzzrumby9[address] [place], [place] [address]Dr. Madelynlorri Elvis aPTT Coag (Bld) [Time] 74.7 s Critically high 39.5-54. 2 [facility] Comment on above: Result Comment: repe ated Performed By: #### P TTHEP ####[facility] Zgiaohigsl3207[address] [place], [place] [address]Dr. Farhat Leal aPTT Coag (Bld) [Time] 45.5 s Normal 39.5-54.2 [facility] Comment on above: Performed By: #### P TTHEP ####[facility] Bctcxkzboz[address] [place] [address]Dr. aFrhat Elvis CBC AUTO DIFFon 09-22-2021 BASO # 0.1 103/ul Normal 0.0-0.1 [facility] Comment on above: Performed By: #### C BC ####[facility] Jpvzfaivqo6196[address] [place], [place] [address]Dr. Farhat Leal Basophils/100 WBC (Bld) 0.7 % Normal 0.2-2.0 [facility] Comment on above: Performed By: #### C BC ####[facility] Lwrckfcbqa2347[address] [place], [place] [address]Dr. Farhat Leal EO # 0.3 103/ul Normal 0.0-0.7 [facility] Comment on above: Performed By: #### C BC ####[facility] Hevrsvatuy3932[address] [place], [place] [address]Dr. Farhat Leal Eosinophils/100 WBC (Bld) 3.2 % Normal 0.9-7.0 [facility] Comment on above: Performed By: #### C BC ####[facility] Llvwtoqtog5465[address] [place], [place] [address]Dr. Farhat Leal Erythrocyte distribution width (RBC) [Ratio] 12.5 % Normal 11.0-15.0 [facility] Comment on above: Performed By: #### C BC ####[facility] Smftdeevdu627[address] [place], [place] [address]Dr. Farhat Leal Hematocrit (Bld) [Volume fraction] 40.5 % Critically low 42.0-54.0 [facility] Comment on above: Performed By: #### C BC ####[facility] Ebcssnhaeb8667[address] [place], [place] [address]Dr. Farhat Leal Hemoglobin (Bld) [Mass/Vol] 13.4 g/dL Critically low 14.0-18.0 [facility] Comment on above: Performed By: #### C BC ####[facility] Cjozpihakz2987[address] [place], [place] [address]Dr. Farhat Lela IG # 0.11 10e3/ul Critically high 0.00-0.03 [facility] Comment on above: Performed By: #### C BC ####[facility] Ubakerckve399[address] [place] [id number]. Farhat Elvis IG % 1.3 % Critically high 0.0-0.5 [facility] Comment on above: Performed By: #### C BC ####[facility] Kronhtqthf[address] [place] [address]Dr. Farhat Leal LYMPH # 1.7 103/ul Normal 1.2-3.8 [facility] Comment on above: Performed By: #### C BC ####[facility] Tbuidhptzb1153 [place] [address]Dr. Farhat Leal Lymphocytes/100 WBC (Bld) 19.6 % Critically low 20.5-60.0 [facility] Comment on above: Performed By: #### C BC ####[facility] Ankmhmfuid2420[address] [place], [place] [address]Dr. Farhat Leal MANUAL DIFF REQ NO Normal [facility] Comment on above: Performed By: #### C BC ####[facility] Liasveyawc[address] [place] [address]Dr. Farhat Elvis MCH (RBC) [Entitic mass] 31.1 pg Normal 25.9-34.0 [facility] Comment on above: Performed By: #### C BC ####[facility] Btvckjyypg8816 [place] [address]Dr. Farhat Leal MCHC (RBC) [Mass/Vol] 33.1 g/dL Normal 29.9-35.2 [facility] Comment on above: Performed By: #### C BC ####[facility] Fwyscuddgq6[address] [place], [place] [address]DrSkylar Leal MCV (RBC) [Entitic vol] 94.0 fL Normal 80.0-94.0 [facility] Comment on above: Performed By: #### C BC ####[facility] Weqllssasb59[address] [place], [place] [address]DrSkylar Leal MONO # 1.1 103/ul Critically high 0.3-0.[address] [facility] Comment on above: Performed By: #### C BC ####[facility] Vuhhgqchuu4624 [place] [address]DrSkylar Farhat Leal Monocytes/100 WBC (Bld) 12.7 % Critically high 1.7-12.0 [facility] Comment on above: Performed By: #### C BC ####[facility] Umlfpxiyqc2161 [place] [address]DrSkylar Farhat Leal NEUT # 5.3 103/ul Normal 1.4-6.5 [facility] Comment on above: Performed By: #### C BC ####[facility] Ercskgamhr0347 [place] [address]DrSkylar Farhat Leal Neutrophils/100 WBC (Bld) 62.5 % Normal 43.0-75.0 [facility] Comment on above: Performed By: #### C BC ####[facility] Hxavifjuuc5315 [place] [address]DrSkylar Farhat Leal Platelet mean volume (Bld) [Entitic vol] 10.1 fL Normal 9.5-13.5 [facility] Comment on above: Performed By: #### C BC ####[facility] Ijucuhehsv2444 [place] [address]Dr. Farhat Leal PLT 220 103/ul Normal 150-450 [facility] Comment on above: Performed By: #### C BC ####[facility] Ofqjjqmmno6085 [place] [address]DrSkylar Farhat Leal RBC 4.31 106/ul Critically low 4.70-6.[address] [facility] Comment on above: Performed By: #### C BC ####[facility] Wvvgblkhty6795 [place] [id number] Farhat Elvis WBC 8.4 103/ul Normal 4.0-11.0 [facility] Comment on above: Performed By: #### C BC ####[facility] Qaninwlutm4954 [place] [address]DrSkylar Leal PROF CHEM 8 (BAS METB)on Anion gap [Moles/Vol] 15.5 mmol/L Normal [facility] Comment on above: Performed By: #### B MP ####[facility] Azslhhhloi4325[address] [place], [place] [address]Dr. Farhat Leal Calcium [Mass/Vol] 8.9 mg/dL Normal 8.5-10.1 [facility] Comment on above: Performed By: #### B MP ####[facility] Nitpmxslkb2180[address] [place], [place] [address]Dr. Farhat Leal Chloride [Moles/Vol] 92 mmol/L Critically low 98-107 [facility] Comment on above: Performed By: #### B MP ####[facility] Ndbozvqauj8[address] [place], [place] [address]Dr. Farhat Leal CO2 [Moles/Vol] 25.7 mmol/L Normal 21.0-32.0 [facility] Comment on above: Performed By: #### B MP ####[facility] Ysugkudrrt74[address] [place], [place] [address]Dr. Farhat Leal Creatinine [Mass/Vol] 1.85 mg/dL Critically high 0.70-1.30 [facility] Center Comment on above: Performed By: #### B MP ####[facility] Ugpcmyooad6388[address] [place], [place] [address]Dr. Farhat Leal EGFR-AF ERITREAN 43 mL/min/1.73m2 Critically low >=60 [facility] Comment on above: Performed By: #### B MP ####[facility] Goyutgtfvr6090[address] [place], [place] [address]Dr. Farhat Leal EGFR-NON AF ERITREAN 36 mL/min/1.73m2 Critically low >=60 [facility] Comment on above: Performed By: #### B MP ####[facility] Ccfbkgupov5686[address] [place], [place] [address]Dr. Farhat Leal Glucose [Mass/Vol] 410 mg/dL Critically high 74-106 [facility] Comment on above: Performed By: #### B MP ####[facility] Pfwywnccev244[address] [place], [place] [address]Dr. Farhat Leal Potassium [Moles/Vol] 5.2 mmol/L Critically high 3.5-5.1 [facility] Comment on above: Performed By: #### B MP ####[facility] Vmvnfsfhsl9824[address] [place], [place] [address]Dr. Farhat Leal Sodium [Moles/Vol] 128 mmol/L Critically low 136-145 Th [facility] Comment on above: Performed By: #### B MP ####[facility] Qlwbjxeawk7070[address] [place], [place] [address]Dr. Farhat Leal Urea nitrogen [Mass/Vol] 75.0 mg/dL Critically high 7.0-18.0 [facility] Comment on above: Performed By: #### B MP ####[facility] Olvahfzlql4374[address] [place], [place] [address]Dr. Farhat Leal Urea nitrogen/Creatinine [Mass ratio] 40.5 mg/mg Normal [facility] Comment on above: Performed By: #### B MP ####[facility] Vhupsuxxux3585[address] [place], [place] [address]Dr. Farhat Leal PTT HEPARIN MONITORon 2021 aPTT Coag (Bld) [Time] 51.2 s Normal 39.5-54.2 Th [facility] Comment on above: Performed By: #### P TTHEP ####[facility] Rqizlcfyxe8401[address] [place], [place] [address]Dr. Farhat Leal aPTT Coag (Bld) [Time] 55.6 s Critically high 39.5-54. 2 [facility] Comment on above: Performed By: #### P TTHEP ####[facility] Gjecitkxzi8254[address] [place], [place] [address]Dr. Farhat Leal aPTT Coag (Bld) [Time] 46.1 s Normal 39.5-54.2 [facility] Comment on above: Performed By: #### P TTHEP ####[facility] Vhxqrdyfdz8020[address] [place], [place] [address]Dr. Farhat Leal aPTT Coag (Bld) [Time] 53.8 s Normal 39.5-54.2 [facility] Comment on above: Performed By: #### P TTHEP ####[facility] [address] [place] [address]Dr. Farhat Leal CBC AUTO DIFFon 09-21-2021 BASO # 0.1 103/ul Normal 0.0-0.1 [facility] Comment on above: Performed By: #### C BC ####[facility] Uddfdppvci7623[address] [place], [place] [address]Dr. Farhat Leal Basophils/100 WBC (Bld) 0.8 % Normal 0.2-2.0 [facility] Comment on above: Performed By: #### C BC ####[facility] Cnmmkccohd2026[address] [place], [place] [address]Dr. Farhat Leal EO # 0.4 103/ul Normal 0.0-0.7 [facility] Comment on above: Performed By: #### C BC ####[facility] Mddcqjeaku1179[address] [place], [place] [address]Dr. Farhat Leal Eosinophils/100 WBC (Bld) 4.3 % Normal 0.9-7.0 [facility] Comment on above: Performed By: #### C BC ####[facility] Ehdruhorrc014[address] [place], [place] [address]Dr. Farhat Leal Erythrocyte distribution width (RBC) [Ratio] 12.5 % Normal 11.0-15.0 [facility] Comment on above: Performed By: #### C BC ####[facility] Sohgogzpjb7677[address] [place], [place] [address]Dr. Farhat Leal Hematocrit (Bld) [Volume fraction] 40.8 % Critically low 42.0-54.0 [facility] Comment on above: Performed By: #### C BC ####[facility] Ctrgogbajy6499[address] [place], [place] [address]Dr. Farhat Leal Hemoglobin (Bld) [Mass/Vol] 13.5 g/dL Critically low 14.0-18.0 [facility] Comment on above: Performed By: #### C BC ####[facility] Qawhzxvnlw106236 [address] [place], [place] [address]Dr. Farhat Leal IG # 0.10 10e3/ul Critically high 0.00-0.03 [facility] Comment on above: Performed By: #### C BC ####[facility] A[address]suuuniq[address] [place] [address]DrSkylar Farhat Elvis IG % 1.2 % Critically high 0.0-0.5 [facility] Comment on above: Performed By: #### C BC ####[facility] S[address]ralw[address] [place] [address]DrSkylar Joshilorri Elvis LYMPH # 1.3 103/ul Normal 1.2-3.8 [facility] Comment on above: Performed By: #### C BC ####[facility] Oyiwuirpsd4314[address] [place], [place] [address]DrSkylar Leal Lymphocytes/100 WBC (Bld) 15.4 % Critically low 20.5-60.0 [facility] Comment on above: Performed By: #### C BC ####[facility] Xecppphury899[address] [place], [place] [address]DrSkylar Leal MANUAL DIFF REQ NO Normal [facility] Comment on above: Performed By: #### C BC ####[facility] Fomwjxqhwd7296[address] [place], [place] [address]DrSkylar Joshilorri Elvis MCH (RBC) [Entitic mass] 31.0 pg Normal 25.9-34.0 [facility] Comment on above: Performed By: #### C BC ####[facility] [address]lpms[address] [place] [address]DrSkylar Joshilorri Elvis MCHC (RBC) [Mass/Vol] 33.1 g/dL Normal 29.9-35.2 [facility] Comment on above: Performed By: #### C BC ####[facility] Veuoaxmsxw6475[address] [place], [place] [address]DrSkylar Leal MCV (RBC) [Entitic vol] 93.8 fL Normal 80.0-94.0 [facility] Comment on above: Performed By: #### C BC ####[facility] Fkxkiappzt1754[address] [place], [place] [address]DrSkylar Leal MONO # 1.2 103/ul Critically high 0.3-0.[address] [facility] Comment on above: Performed By: #### C BC ####[facility] Shpsmjcfis[address] [place] [address]Dr. Farhat Leal Monocytes/100 WBC (Bld) 13.6 % Critically high 1.7-12.0 [facility] Comment on above: Performed By: #### C BC ####[facility] Kbkcezeoee4126[address] [place], [place] [address]Dr. Farhat Leal NEUT # 5.5 103/ul Normal 1.4-6.5 [facility] Comment on above: Performed By: #### C BC ####[facility] Kjommcblpo[address] [place] [address]Dr. Farhat Leal Neutrophils/100 WBC (Bld) 64.7 % Normal 43.0-75.0 [facility] Comment on above: Performed By: #### C BC ####[facility] Ecsxazfqha3824[address] [place], [place] [address]Dr. Farhat Leal Platelet mean volume (Bld) [Entitic vol] 9.8 fL Normal 9.5-13.5 [facility] Comment on above: Performed By: #### C BC ####[facility] Gqyshwkukj5214[address] [place], [place] [address]Dr. Farhat Leal PLT 206 103/ul Normal 150-450 [facility] Comment on above: Performed By: #### C BC ####[facility] Glokyucmdh8746[address] [place], [place] [address]Dr. Farhat Leal RBC 4.35 106/ul Critically low 4.70-6.[address] [facility] Comment on above: Performed By: #### C BC ####[facility] Ykiqplfcdq[address] [place], [place] [address]Dr. Farhat Leal WBC 8.4 103/ul Normal 4.0-11.0 [facility] Comment on above: Performed By: #### C BC ####[facility] Wtwyoiajdg6499[address] [place], [place] [address]DrSkylar Farhat Elvis PROF CHEM 8 (BAS METB)on Anion gap [Moles/Vol] 12.3 mmol/L Normal [facility] Comment on above: Performed By: #### B MP ####[facility] Ygohcedbdp568[address] [place], [place] [address]Dr. Farhat Leal Calcium [Mass/Vol] 8.6 mg/dL Normal 8.5-10.1 [facility] Comment on above: Performed By: #### B MP ####[facility] Hwynaayonx7211[address] [place], [place] [address]Dr. Farhat Leal Chloride [Moles/Vol] 94 mmol/L Critically low 98-107 [facility] Comment on above: Performed By: #### B MP ####[facility] Ovufmlmagb4940[address] [place], [place] [address]Dr. Farhat Leal CO2 [Moles/Vol] 30.8 mmol/L Normal 21.0-32.0 [facility] Comment on above: Performed By: #### B MP ####[facility] Jphxugoqss3524[address] [place], [place] [address]Dr. Farhat Leal Creatinine [Mass/Vol] 1.99 mg/dL Critically high 0.70-1.30 [facility] Comment on above: Performed By: #### B MP ####[facility] Hhnnaxyeox7958[address] [place], [place] [address]Dr. Farhat Leal EGFR-AF ERITREAN 40 mL/min/1.73m2 Critically low >=60 [facility] Comment on above: Performed By: #### B MP ####[facility] Fponjsycvh427[address] [place], [place] [address]Dr. Farhat Leal EGFR-NON AF ERITREAN 33 mL/min/1.73m2 Critically low >=60 [facility] Comment on above: Performed By: #### B MP ####[facility] Vbvtdrfbio4920[address] [place], [place] [address]Dr. Farhat Leal Glucose [Mass/Vol] 264 mg/dL Critically high 74-106 [facility] Comment on above: Performed By: #### B MP ####[facility] Zixioezzpc8435[address] [place], [place] [address]Dr. Farhat Leal Potassium [Moles/Vol] 5.1 mmol/L Normal 3.5-5.1 [facility] Comment on above: Performed By: #### B MP ####[facility] Yjbsrzcxvj0523[address] [place], [place] [address]Dr. Farhat Leal Sodium [Moles/Vol] 132 mmol/L Critically low 136-145 Th [facility] Comment on above: Performed By: #### B MP ####[facility] Mpkdduwhqg9546[address] [place], [place] [address]Dr. Farhat Leal Urea nitrogen [Mass/Vol] 72.0 mg/dL Critically high 7.0-18.0 [facility] Comment on above: Performed By: #### B MP ####[facility] Phyewyeisa418136 [address] [place], [place] [address]Dr. Farhat Leal Urea nitrogen/Creatinine [Mass ratio] 36.2 mg/mg Normal [facility] Comment on above: Performed By: #### B MP ####[facility] Ticwytvgev018[address] [place], [place] [address]Dr. Farhat Leal PTT HEPARIN MONITORon 2021 aPTT Coag (Bld) [Time] 45.3 s Normal 39.5-54.2 [facility] Comment on above: Performed By: #### P TTHEP ####[facility] Orgjkieotw0888[address] [place], [place] [address]Dr. Farhat Leal aPTT Coag (Bld) [Time] 68.0 s Critically high 39.5-54. 2 [facility] Comment on above: Performed By: #### P TTHEP ####[facility] Snczlsghep6911[address] [place], [place] [address]Dr. Farhat Leal aPTT Coag (Bld) [Time] 69.4 s Critically high 39.5-54. 2 [facility] Comment on above: Performed By: #### P TTHEP ####[facility] Vemjyzvkai7266[address] [place], [place] [address]Dr. Farhat Leal aPTT Coag (Bld) [Time] 53.5 s Normal 39.5-54.2 [facility] Comment on above: Performed By: #### P TTHEP ####[facility] [address]uzvgtxmh[address] [place] [address]Dr. Farhat Leal aPTT Coag (Bld) [Time] 126.9 s Critically high 39.5-54. 2 [facility] Comment on above: Performed By: #### P TTHEP ####[facility] Kxctevmkng1522[address] [place], [place] [address]DrSkylar Leal CBC AUTO DIFFon 09-20-2021 BASO # 0.1 103/ul Normal 0.0-0.1 [facility] Comment on above: Performed By: #### C BC ####[facility] Ekqqznwcnx537[address] [place], [place] [address]DrSkylar Leal Basophils/100 WBC (Bld) 0.7 % Normal 0.2-2.0 [facility] Comment on above: Performed By: #### C BC ####[facility] Cdslyegbjb2707[address] [place], [place] [address]DrSkylar Leal EO # 0.2 103/ul Normal 0.0-0.7 [facility] Comment on above: Performed By: #### C BC ####[facility] Pasgfhbnnb0904[address] [place], [place] [address]DrSkylar Leal Eosinophils/100 WBC (Bld) 3.2 % Normal 0.9-7.0 [facility] Comment on above: Performed By: #### C BC ####[facility] Sgqkkaiqyg565[address] [place], [place] [address]DrSkylar Leal Erythrocyte distribution width (RBC) [Ratio] 12.4 % Normal 11.0-15.0 [facility] Comment on above: Performed By: #### C BC ####[facility] Girammlhem1496[address] [place], [place] [address]DrSkylar Leal Hematocrit (Bld) [Volume fraction] 40.1 % Critically low 42.0-54.0 [facility] Comment on above: Performed By: #### C BC ####[facility] Ltndvtfyae5177[address] [place], [place] [address]Dr. Farhat Leal Hemoglobin (Bld) [Mass/Vol] 13.4 g/dL Critically low 14.0-18.0 [facility] Comment on above: Performed By: #### C BC ####[facility] [address]vfq[address] [place] [address]Dr. Madelynlorri Lela IG # 0.08 10e3/ul Critically high 0.00-0.03 [facility] Comment on above: Performed By: #### C BC ####[facility] Kosathqhoe[address] [place] [address]Dr. Madelynlorri Leal IG % 1.1 % Critically high 0.0-0.[address] [facility] Comment on above: Performed By: #### C BC ####[facility] Sfrfeviuol3789[address] [place], [place] [address]Dr. Farhat Leal LYMPH # 1.3 103/ul Normal 1.2-3.8 [facility] Comment on above: Performed By: #### C BC ####[facility] Hzjaofyrgr3307[address] [place], [place] [address]Dr. Farhat Leal Lymphocytes/100 WBC (Bld) 17.3 % Critically low 20.5-60.0 [facility] Comment on above: Performed By: #### C BC ####[facility] Ut[address]upddni[address] [place] [address]DrSkylar Madelynlorri Leal MANUAL DIFF REQ NO Normal [facility] Comment on above: Performed By: #### C BC ####[facility] Rvmmfjuvrr4626[address] [place], [place] [address]DrSkylar Farhat Elvis MCH (RBC) [Entitic mass] 31.2 pg Normal 25.9-34.0 [facility] Comment on above: Performed By: #### C BC ####[facility] Bghtmclwyf6187[address] [place], [place] [address]DrSkylar Farhat Elvis MCHC (RBC) [Mass/Vol] 33.4 g/dL Normal 29.9-35.2 [facility] Comment on above: Performed By: #### C BC ####[facility] Esiomzwwmj6259[address] [place], [place] [address]Dr. Farhat Elvis MCV (RBC) [Entitic vol] 93.3 fL Normal 80.0-94.0 [facility] Comment on above: Performed By: #### C BC ####[facility] L[address]mslomjxy[address] [place] [address]Dr. Farhat Leal MONO # 0.9 103/ul Critically high 0.3-0.[address] [facility] Comment on above: Performed By: #### C BC ####[facility] Ltkztisudf45[address] [place] [address]DrSkylar Farhat Elvis Monocytes/100 WBC (Bld) 12.4 % Critically high 1.7-12.0 [facility] Comment on above: Performed By: #### C BC ####[facility] Kpuobaujvd6066[address] [place], [place] [address]Dr. Farhat Leal NEUT # 4.7 103/ul Normal 1.4-6.5 [facility] Comment on above: Performed By: #### C BC ####[facility] Uoxnlorpuz8647[address] [place], [place] [address]Dr. Farhat Elvis Neutrophils/100 WBC (Bld) 65.3 % Normal 43.0-75.0 [facility] Comment on above: Performed By: #### C BC ####[facility] Ouwyjzurrp125[address] [place], [place] [address]Dr. Farhat Elvis Platelet mean volume (Bld) [Entitic vol] 9.9 fL Normal 9.5-13.5 [facility] Comment on above: Performed By: #### C BC ####[facility] Tkyboexbcp605[address] [place], [place] [address]Dr. Madelynlorri Elvis PLT 180 103/ul Normal 150-450 [facility] Comment on above: Performed By: #### C BC ####[facility] Euadarglhh0287[address] [place], [place] [address]Dr. Madelynlorri Elvis RBC 4.30 106/ul Critically low 4.70-6.[address] [facility] Comment on above: Performed By: #### C BC ####[facility] Dcabzergge3189[address] [place], [place] [address]DrSkylar Leal WBC 7.2 103/ul Normal 4.0-11.0 [facility] Comment on above: Performed By: #### C BC ####[facility] Xelxildjdo575[address] [place], [place] [address]Dr. Farhat Leal PTT HEPARIN MONITORon 2021 aPTT Coag (Bld) [Time] 26.7 s Critically low 39.5-54.2 [facility] Comment on above: Performed By: #### P TTHEP ####[facility] Bjaganxgme7097[address] [place], [place] [address]Dr. Farhat Elvis aPTT Coag (Bld) [Time] 121.0 s Critically high 39.5-54. 2 [facility] Comment on above: Performed By: #### P TTHEP ####[facility] Gxlnwgwqls4876[address] [place], [place] [address]Dr. Farhat Elvis aPTT Coag (Bld) [Time] 27.6 s Critically low 39.5-54.2 [facility] Comment on above: Performed By: #### P TTHEP ####[facility] Hmwawezqtr5418[address] [place], [place] [address]Dr. Farhat Elvis aPTT Coag (Bld) [Time] 139.0 s Critically high 39.5-54. 2 [facility] Comment on above: Performed By: #### P TTHEP ####[facility] Kstipmxien9297[address] [place], [place] [address]Dr. Farhat Elvis CBC AUTO DIFFon 09-19-2021 BASO # 0.0 103/ul Normal 0.0-0.1 [facility] Comment on above: Performed By: #### C BC ####[facility] Yfbncmjimj100[address] [place], [place] [address]Dr. Farhat Elvis Basophils/100 WBC (Bld) 0.5 % Normal 0.2-2.0 [facility] Comment on above: Performed By: #### C BC ####[facility] Gsyhymmykk3915[address] [place], [place] [address]DrSkylar Leal EO # 0.2 103/ul Normal 0.0-0.7 [facility] Comment on above: Performed By: #### C BC ####[facility] Efoanqmozd[address] [place] [address]Dr. Farhat Leal Eosinophils/100 WBC (Bld) 2.6 % Normal 0.9-7.0 [facility] Comment on above: Performed By: #### C BC ####[facility] Wyquuszoko[address] [place] [address]Dr. Farhat Leal Erythrocyte distribution width (RBC) [Ratio] 12.5 % Normal 11.0-15.0 [facility] Comment on above: Performed By: #### C BC ####[facility] Sffcmwilck69[address] [place] [address]Dr. Farhat Leal Hematocrit (Bld) [Volume fraction] 39.2 % Critically low 42.0-54.0 [facility] Comment on above: Performed By: #### C BC ####[facility] Yerpmygyna1566[address] [place], [place] [address]Dr. Farhat Leal Hemoglobin (Bld) [Mass/Vol] 13.3 g/dL Critically low 14.0-18.0 [facility] Comment on above: Performed By: #### C BC ####[facility] Umyhklcdlm9026[address] [place], [place] [address]Dr. Farhat Leal IG # 0.08 10e3/ul Critically high 0.00-0.03 [facility] Comment on above: Performed By: #### C BC ####[facility] Sakufslouw7207[address] [place], [place] [address]Dr. Farhat Leal IG % 0.9 % Critically high 0.0-0.[address] [facility] Comment on above: Performed By: #### C BC ####[facility] Cqlqbbzaao956[address] [place], [place] [address]Dr. Madelynlorri Elvis LYMPH # 1.5 103/ul Normal 1.2-3.8 [facility] Comment on above: Performed By: #### C BC ####[facility] Nrdsoxueib3549[address] [place], [place] [address]Dr. Farhat Leal Lymphocytes/100 WBC (Bld) 17.2 % Critically low 20.5-60.0 [facility] Comment on above: Performed By: #### C BC ####[facility] N[address]xbxzwst[address] [place] [address]DrSkylar Leal MANUAL DIFF REQ NO Normal [facility] Comment on above: Performed By: #### C BC ####[facility] Czrrvokpqc[address] [place] [address]Dr. Farhat Leal MCH (RBC) [Entitic mass] 31.7 pg Normal 25.9-34.0 [facility] Comment on above: Performed By: #### C BC ####[facility] Gjwkyaizfx7175[address] [place], [place] [address]Dr. Farhat Leal MCHC (RBC) [Mass/Vol] 33.9 g/dL Normal 29.9-35.2 [facility] Comment on above: Performed By: #### C BC ####[facility] Cfjgaqjaty1665[address] [place], [place] [address]DrSkylar Leal MCV (RBC) [Entitic vol] 93.3 fL Normal 80.0-94.0 [facility] Comment on above: Performed By: #### C BC ####[facility] Kyoodpihct8411[address] [place], [place] [address]DrSkylar Leal MONO # 1.2 103/ul Critically high 0.3-0.[address] [facility] Comment on above: Performed By: #### C BC ####[facility] Ehsyvksjeo72[address] [place], [place] [address]DrSkylar Leal Monocytes/100 WBC (Bld) 13.7 % Critically high 1.7-12.0 [facility] Comment on above: Performed By: #### C BC ####[facility] Mxhdfkthof57[address] [place], [place] [address]DrSkylar Leal NEUT # 5.5 103/ul Normal 1.4-6.5 [facility] Comment on above: Performed By: #### C BC ####[facility] Kvnrunhipb974[address] [place], [place] [address]DrSkylar Leal Neutrophils/100 WBC (Bld) 65.1 % Normal 43.0-75.0 [facility] Comment on above: Performed By: #### C BC ####[facility] [address] [place] [address]DrSkylar Farhat Leal Platelet mean volume (Bld) [Entitic vol] 9.6 fL Normal 9.5-13.5 [facility] Comment on above: Performed By: #### C BC ####[facility] [address]ubebrlld[address] [place] [address]DrSkylar Farhat Leal PLT 163 103/ul Normal 150-450 [facility] Comment on above: Performed By: #### C BC ####[facility] Egvbhyizbl3852 [place] [address]DrSkylar Farhat Leal RBC 4.20 106/ul Critically low 4.70-6.10 [facility] Comment on above: Performed By: #### C BC ####[facility] Rpxthmqvon[address] [place], [place] [address]DrSkylar Farhat Elvis WBC 8.4 103/ul Normal 4.0-11.0 [facility] Comment on above: Performed By: #### C BC ####[facility] Abvjvahqov84[address] [place], [place] [address]DrSkylar Farhat Leal POINT OF CARE GLUCOSEon Glucose [Mass/Vol] 300 mg/dL Critically high 74-106 [facility] Comment on above: Performed By: #### P OCGLUC ####[facility] Meyjsnylho[address] [place], [place] [address]DrSkylar Farhat Elvis POTASSIUMon 09-19-2021 Potassium [Moles/Vol] 4.9 mmol/L Normal 3.5-5.1 [facility] Comment on above: Performed By: #### K ####[facility] Tijphyeqfv0866[address] [place], [place] [address]DrSkylar Farhat Elvis PTT HEPARIN MONITORon 2021 aPTT Coag (Bld) [Time] 23.4 s Critically low 39.5-54.2 [facility] Comment on above: Result Comment: repe ated Performed By: #### P TTHEP ####[facility] Enilfxzkyf450[address] [place], [place] [address]Dr. Farhat Elvis aPTT Coag (Bld) [Time] 101.2 s Critically high 39.5-54. 2 [facility] Comment on above: Performed By: #### P TTHEP ####[facility] Limmcyxtyz089[address] [place], [place] [address]Dr. Farhat Leal aPTT Coag (Bld) [Time] 81.0 s Critically high 39.5-54. 2 [facility] Comment on above: Result Comment: Test Repeated. Critical Value Verified Performed By: #### P TTHEP ####[facility] Dsuaqjoirx6059[address] [place], [place] [address]DrSkylar Leal CBC AUTO DIFFon 09-18-2021 BASO # 0.0 103/ul Normal 0.0-0.1 [facility] Comment on above: Performed By: #### C BC ####[facility] Htmeksmmuf6124[address] [place], [place] [address]DrSkylar Leal Basophils/100 WBC (Bld) 0.4 % Normal 0.2-2.0 [facility] Comment on above: Performed By: #### C BC ####[facility] Ieacppfamr27[address] [place], [place] [address]DrSkylar Leal EO # 0.1 103/ul Normal 0.0-0.7 [facility] Comment on above: Performed By: #### C BC ####[facility] Ztoglnexux3557[address] [place], [place] [address]DrSkylar Leal Eosinophils/100 WBC (Bld) 0.8 % Critically low 0.9-7.0 The [facility] Comment on above: Performed By: #### C BC ####[facility] Vmvbnuewtz24[address] [place], [place] [address]DrSkylar Leal Erythrocyte distribution width (RBC) [Ratio] 12.4 % Normal 11.0-15.0 [facility] Comment on above: Performed By: #### C BC ####[facility] Nhebkrbmhm7212[address] [place], [place] [address]DrSkylar Leal Hematocrit (Bld) [Volume fraction] 41.7 % Critically low 42.0-54.0 [facility] Comment on above: Performed By: #### C BC ####[facility] Nbgyxvfweo48[address] [place] [address]DrSkylar Leal Hemoglobin (Bld) [Mass/Vol] 14.1 g/dL Normal 14.0-18.0 The [facility] Comment on above: Performed By: #### C BC ####[facility] Vtyejuzxop[address] [place] [address]Dr. Farhat Leal IG # 0.06 10e3/ul Critically high 0.00-0.03 [facility] Comment on above: Performed By: #### C BC ####[facility] Tltaqbtgox4[address] [place] [address]DrSkylar Leal IG % 0.6 % Critically high 0.0-0.[address] [facility] Comment on above: Performed By: #### C BC ####[facility] Fqemlumogo74[address] [place] [address]DrSkylar Leal LYMPH # 0.6 103/ul Critically low 1.2-3.8 [facility] Comment on above: Performed By: #### C BC ####[facility] Mtbdrhildu4[address] [place] [address]DrSkylar Leal Lymphocytes/100 WBC (Bld) 6.5 % Critically low 20.5-60.0 [facility] Comment on above: Performed By: #### C BC ####[facility] Fmdrlricbx[address] [place] [address]DrSkylar Leal MANUAL DIFF REQ NO Normal [facility] Comment on above: Performed By: #### C BC ####[facility] Xlkgzwmytv9[address] [place] [address]DrSkylar Leal MCH (RBC) [Entitic mass] 31.6 pg Normal 25.9-34.0 [facility] Comment on above: Performed By: #### C BC ####[facility] Lyyfnirpox69[address] [place], [place] [address]DrSkylar Leal MCHC (RBC) [Mass/Vol] 33.8 g/dL Normal 29.9-35.2 The [facility] Comment on above: Performed By: #### C BC ####[facility] [address]pyl[address] [place] [id number]. Farhat Elvis MCV (RBC) [Entitic vol] 93.5 fL Normal 80.0-94.0 The [facility] Comment on above: Performed By: #### C BC ####[facility] Nbjqvteyrc7[address] [place] [id number]. Farhat Elvis MONO # 1.0 103/ul Critically high 0.3-0.[address] [facility] Comment on above: Performed By: #### C BC ####[facility] Rkdlcrhoyw16[address] [place] [address]Dr. Farhat Leal Monocytes/100 WBC (Bld) 10.4 % Normal 1.7-12.0 [facility] Comment on above: Performed By: #### C BC ####[facility] Nsuihvdpxc864[address] [place], [place] [address]Dr. Farhat Leal NEUT # 7.8 103/ul Critically high 1.4-6.[address] [facility] Comment on above: Performed By: #### C BC ####[facility] Zpoymcbblm255[address] [place], [place] [address]Dr. Farhat Leal Neutrophils/100 WBC (Bld) 81.3 % Critically high 43.0-75.0 [facility] Comment on above: Performed By: #### C BC ####[facility] [address]vrla[address] [place] [address]Dr. Madelynlorri Leal Platelet mean volume (Bld) [Entitic vol] 9.9 fL Normal 9.5-13.5 [facility] Comment on above: Performed By: #### C BC ####[facility] Pvzgceogpg17[address] [place] [id number]. Farhat Leal PLT 169 103/ul Normal 150-450 [facility] Comment on above: Performed By: #### C BC ####[facility] Vlzakbywdo09[address] [place] [phone]. Farhat Leal RBC 4.46 106/ul Critically low 4.70-6.[address] [facility] Comment on above: Performed By: #### C BC ####[facility] Nhusuktnhl6585 [place] [phone]. Farhat Leal WBC 9.6 103/ul Normal 4.0-11.0 [facility] Comment on above: Performed By: #### C BC ####[facility] Mlvpctclph62[address] [place] [id number]. Farhat Leal BASO # 0.0 103/ul Normal 0.0-0.1 [facility] Comment on above: Performed By: #### C BC ####[facility] Qnntoydgbi55[address] [place], [place] [address]Dr. Farhat Leal Basophils/100 WBC (Bld) 0.4 % Normal 0.2-2.0 [facility] Comment on above: Performed By: #### C BC ####[facility] Xbpoxpyfpw50[address] [place], [place] [address]Dr. Farhat Leal EO # 0.1 103/ul Normal 0.0-0.7 [facility] Comment on above: Performed By: #### C BC ####[facility] Bnanjzouly[address] [place], [place] [address]Dr. Farhat Leal Eosinophils/100 WBC (Bld) 1.1 % Normal 0.9-7.0 [facility] Comment on above: Performed By: #### C BC ####[facility] Eyizorrbdm2114[address] [place], [place] [address]Dr. Farhat Leal Erythrocyte distribution width (RBC) [Ratio] 12.6 % Normal 11.0-15.0 [facility] Comment on above: Performed By: #### C BC ####[facility] Bnzehgpwto63[address] [place], [place] [address]Dr. Farhat Leal Hematocrit (Bld) [Volume fraction] 40.8 % Critically low 42.0-54.0 [facility] Comment on above: Performed By: #### C BC ####[facility] Uqsp[address]vry[address] [place] [address]Dr. Farhat Leal Hemoglobin (Bld) [Mass/Vol] 13.6 g/dL Critically low 14.0-18.0 [facility] Comment on above: Performed By: #### C BC ####[facility] Aekzslarge[address] [place] [address]Dr. Farhat Leal IG # 0.08 10e3/ul Critically high 0.00-0.03 [facility] Comment on above: Performed By: #### C BC ####[facility] Ljgiylypkz13[address] [place] [address]Dr. Farhat Leal IG % 0.9 % Critically high 0.0-0.[address] [facility] Comment on above: Performed By: #### C BC ####[facility] Kjmlfmekuo7636 [place] [address]Dr. Farhat Leal LYMPH # 0.8 103/ul Critically low 1.2-3.8 [facility] Comment on above: Performed By: #### C BC ####[facility] Dyxqitxyyr3[address] [place] [address]Dr. Farhat Leal Lymphocytes/100 WBC (Bld) 8.7 % Critically low 20.5-60.0 [facility] Comment on above: Performed By: #### C BC ####[facility] Zxxuzddnsp[address] [place] [address]Dr. Farhat Leal MANUAL DIFF REQ NO Normal [facility] Comment on above: Performed By: #### C BC ####[facility] Pbwjvguxyr7626 [place] [address]Dr. Farhat Leal MCH (RBC) [Entitic mass] 31.6 pg Normal 25.9-34.0 [facility] Comment on above: Performed By: #### C BC ####[facility] Vbpfugkrjr14[address] [place], [place] [address]Dr. Farhat Leal MCHC (RBC) [Mass/Vol] 33.3 g/dL Normal 29.9-35.2 [facility] Comment on above: Performed By: #### C BC ####[facility] [address]xflirsn[address] [place] [phone]. Farhat Leal MCV (RBC) [Entitic vol] 94.9 fL Critically high 80.0-94.0 The [facility] Comment on above: Performed By: #### C BC ####[facility] Zvdpbxngru5273 [place] [phone]. Farhat Leal MONO # 1.0 103/ul Critically high 0.3-0.[address] [facility] Comment on above: Performed By: #### C BC ####[facility] Hghffnbtxf87[address] [place], [place] [address]Dr. Farhat Leal Monocytes/100 WBC (Bld) 11.3 % Normal 1.7-12.0 The [facility] Comment on above: Performed By: #### C BC ####[facility] Dcfdizckpy39[address] [place], [place] [address]Dr. Farhat Leal NEUT # 6.9 103/ul Critically high 1.4-6.[address] [facility] Comment on above: Performed By: #### C BC ####[facility] Uxmueucrhe449[address] [place], [place] [address]Dr. Farhat Leal Neutrophils/100 WBC (Bld) 77.6 % Critically high 43.0-75.0 [facility] Comment on above: Performed By: #### C BC ####[facility] Npjjysbtoy[address] [place], [place] [id number]. Frahat Leal Platelet mean volume (Bld) [Entitic vol] 9.7 fL Normal 9.5-13.5 [facility] Comment on above: Performed By: #### C BC ####[facility] Tszskvpkzg7116 [place] [phone]. Farhat Elvis PLT 171 103/ul Normal 150-450 [facility] Comment on above: Performed By: #### C BC ####[facility] Lyjppyammp[address] [place], [place] [id number]. Farhat Elvis RBC 4.30 106/ul Critically low 4.70-6.[address] [facility] Comment on above: Performed By: #### C BC ####[facility] Hffpfudlez2912[address] [place], [place] [address]Dr. Farhat Leal WBC 8.9 103/ul Normal 4.0-11.0 [facility] Comment on above: Performed By: #### C BC ####[facility] Wsfkvhgpsb9[address] [place] [address]Dr. Madelynlorri Leal Covid-19 PCR (CVDTB)on SARS-CoV-2 (COVID-19) RNA JOSH+probe Ql (Unsp spec) Not detected Normal NOT DETECTED [facility] Comment on above: Result Comment: [...] for this test is supported by the [employer] of [employer] and Human Service's declaration that [...] be used). Performed By: #### C VDTBH ####[facility] Onmhmpuegp[address] [place] [address]Dr. Farhat Leal PROF 14(COMP METB)on 022 Albumin [Mass/Vol] 2.6 g/dL Critically low 3.4-5.0 Th e [facility] Comment on above: Performed By: #### C MP ####[facility] Ydnwabfifb277[address] [place], [place] [address]DrSkylar Leal Albumin/Globulin [Mass ratio] 0.7 {ratio} Normal [facility] Comment on above: Performed By: #### C MP ####[facility] Zustvbzxee24[address] [place] [address]DrSkylar Leal ALP [Catalytic activity/Vol] 88 U/L Normal 46-116 [facility] Comment on above: Performed By: #### C MP ####[facility] Yrpqtozbcw2673 [place] [address]Dr. Farhat Leal ALT [Catalytic activity/Vol] 15 U/L Critically low 16-63 [facility] Comment on above: Performed By: #### C MP ####[facility] Phqpxkdaoe7950 [place] [address]Dr. Farhat Leal Anion gap [Moles/Vol] 11.7 mmol/L Normal Th [facility] Comment on above: Performed By: #### C MP ####[facility] Pbbkrjuyff3097[address] [place], [place] [address]Dr. Farhat Leal AST [Catalytic activity/Vol] 25 U/L Normal 15-37 [facility] Comment on above: Performed By: #### C MP ####[facility] Auczwbhboa9094[address] [place], [place] [address]Dr. Farhat Leal Bilirubin [Mass/Vol] 0.6 mg/dL Normal 0.2-1.0 [facility] Comment on above: Performed By: #### C MP ####[facility] Rfxagpyusk938[address] [place], [place] [address]Dr. Farhat Leal Calcium [Mass/Vol] 8.9 mg/dL Normal 8.5-10.1 [facility] Comment on above: Performed By: #### C MP ####[facility] Eoxwihkexg578[address] [place], [place] [address]Dr. Farhat Leal Chloride [Moles/Vol] 93 mmol/L Critically low 98-107 [facility] Comment on above: Performed By: #### C MP ####[facility] Nutavqgsts6[address] [place], [place] [id number]. Farhat Leal CO2 [Moles/Vol] 28.9 mmol/L Normal 21.0-32.0 [facility] Comment on above: Performed By: #### C MP ####[facility] Wdgeirsnkz3974[address] [place], [place] [address]Dr. Farhat Leal Creatinine [Mass/Vol] 2.09 mg/dL Critically high 0.70-1.30 [facility] Comment on above: Performed By: #### C MP ####[facility] Pxitghague[address] [place] [address]Dr. Farhat Leal EGFR-AF ERITREAN 38 mL/min/1.73m2 Critically low >=60 [facility] Comment on above: Performed By: #### C MP ####[facility] Kjpnvczqcb8696 [place] [address]Dr. Farhat Leal EGFR-NON AF ERITREAN 31 mL/min/1.73m2 Critically low >=60 [facility] Comment on above: Performed By: #### C MP ####[facility] Jbdfnlcssi6[address] [place], [place] [address]Dr. Farhat Leal Globulin (S) [Mass/Vol] 3.7 g/dL Normal [facility] Comment on above: Performed By: #### C MP ####[facility] Jqyjknkddk508[address] [place], [place] [address]Dr. Farhat Leal Glucose [Mass/Vol] 214 mg/dL Critically high 74-106 [facility] Comment on above: Performed By: #### C MP ####[facility] Vsqhaqgpch97[address] [place], [place] [address]Dr. Farhat Leal Potassium [Moles/Vol] 5.6 mmol/L Critically high 3.5-5.1 [facility] Comment on above: Performed By: #### C MP ####[facility] Ozkfbyiuaa4070[address] [place], [place] [address]Dr. Farhat Leal Protein [Mass/Vol] 6.3 g/dL Critically low 6.4-8.2 Th [facility] Comment on above: Performed By: #### C MP ####[facility] Jkuwbnhjop2159[address] [place], [place] [address]Dr. Farhat Leal Sodium [Moles/Vol] 128 mmol/L Critically low 136-145 Th [facility] Comment on above: Performed By: #### C MP ####[facility] Oybdnwlicb8834[address] [place], [place] [address]Dr. Farhat Leal Urea nitrogen [Mass/Vol] 65.0 mg/dL Critically high 7.0-18.0 [facility] Comment on above: Performed By: #### C MP ####[facility] Unakchsced[address] [place] [address]Dr. Farhat Leal Urea nitrogen/Creatinine [Mass ratio] 31.1 mg/mg Normal [facility] Comment on above: Performed By: #### C MP ####[facility] Fpdbdhshiy5[address] [place] [address]Dr. Farhat Leal Albumin [Mass/Vol] 2.5 g/dL Critically low 3.4-5.0 Th e [facility] Comment on above: Performed By: #### T MYRIAM, CMP ####[facility] Jgvjjodquf4237[address] [place], [place] [address]Dr. Farhat Leal Albumin/Globulin [Mass ratio] 0.7 {ratio} Normal [facility] Comment on above: Performed By: #### T MYRIAM, CMP ####[facility] Tfaipzpsqq9584[address] [place], [place] [address]Dr. Farhat Leal ALP [Catalytic activity/Vol] 83 U/L Normal 46-116 [facility] Comment on above: Performed By: #### T MYRIAM, CMP ####[facility] Nbtlxfncmw24[address] [place], [place] [address]Dr. Farhat Leal ALT [Catalytic activity/Vol] 16 U/L Normal 16-63 [facility] Comment on above: Performed By: #### T MYRIAM, CMP ####[facility] Exfknyxqif035[address] [place], [place] [address]Dr. Farhat Leal Anion gap [Moles/Vol] 9.7 mmol/L Normal [facility] Comment on above: Performed By: #### T MYRIAM, CMP ####[facility] Ngxrtjtzuw7730[address] [place], [place] [address]Dr. Farhat Leal AST [Catalytic activity/Vol] 27 U/L Normal 15-37 [facility] Comment on above: Performed By: #### T MYRIAM, CMP ####[facility] Cztdbaohmf4066[address] [place], [place] [address]Dr. Farhat Leal Bilirubin [Mass/Vol] 0.5 mg/dL Normal 0.2-1.0 [facility] Comment on above: Performed By: #### T SH, CMP ####[facility] Dvxfxnwnwk504[address] [place], [place] [address]Dr. Farhat Leal Calcium [Mass/Vol] 8.8 mg/dL Normal 8.5-10.1 [facility] Comment on above: Performed By: #### T SH, CMP ####[facility] Vdgojqpdsc2899[address] [place], [place] [address]Dr. Madelynlorri Leal Chloride [Moles/Vol] 95 mmol/L Critically low 98-107 [facility] Comment on above: Performed By: #### T SH, CMP ####[facility] Xxccycuyeu7910[address] [place], [place] [address]Dr. Madelynlorri Leal CO2 [Moles/Vol] 30.5 mmol/L Normal 21.0-32.0 [facility] Comment on above: Performed By: #### T SH, CMP ####[facility] Yvsurrtghf8910[address] [place], [place] [address]Dr. Farhat Elvis Creatinine [Mass/Vol] 2.18 mg/dL Critically high 0.70-1.30 [facility] Comment on above: Performed By: #### T SH, CMP ####[facility] Yqxloxisdq8064[address] [place], [place] [address]Dr. Madelynlorri Elvis EGFR-AF ERITREAN 36 mL/min/1.73m2 Critically low >=60 [facility] Comment on above: Performed By: #### T SH, CMP ####[facility] Clrnacvkoy9257[address] [place], [place] [address]Dr. Madelynlorri Elvis EGFR-NON AF ERITREAN 30 mL/min/1.73m2 Critically low >=60 [facility] Comment on above: Performed By: #### T SH, CMP ####[facility] Hrjznkyzxz01[address] [place], [place] [address]Dr. Farhat Leal Globulin (S) [Mass/Vol] 3.5 g/dL Normal [facility] Comment on above: Performed By: #### T SH, CMP ####[facility] Uiozxzymyp9648[address] [place], [place] [address]Dr. Madelynlorri Leal Glucose [Mass/Vol] 141 mg/dL Critically high 74-106 [facility] Comment on above: Performed By: #### T MYRIAM, CMP ####[facility] Jgpqohdrjd0845[address] [place], [place] [address]Dr. Madelynlorri Leal Potassium [Moles/Vol] 5.2 mmol/L Critically high 3.5-5.1 [facility] Comment on above: Performed By: #### T MYRIAM, CMP ####[facility] Ffeicwofzs39[address] [place], [place] [address]Dr. Farhat Leal Protein [Mass/Vol] 6.0 g/dL Critically low 6.4-8.2 [facility] Comment on above: Performed By: #### T MYRIAM, CMP ####[facility] Hzzxugdvmo7148[address] [place], [place] [address]Dr. Farhat Leal Sodium [Moles/Vol] 130 mmol/L Critically low 136-145 [facility] Comment on above: Performed By: #### T MYRIAM, CMP ####[facility] Lkrsqbxbif9[address] [place], [place] [address]Dr. Farhat Leal Urea nitrogen [Mass/Vol] 63.0 mg/dL Critically high 7.0-18.0 [facility] Comment on above: Performed By: #### T MYRIAM, CMP ####[facility] Zcakbjpyox[address] [place], [place] [address]Dr. Farhat Leal Urea nitrogen/Creatinine [Mass ratio] 28.9 mg/mg Normal [facility] Comment on above: Performed By: #### T MYRIAM, CMP ####[facility] [id number] [address] [place], [place] [address]Dr. Farhat Leal PROTIMEon 09-18-2021 INR Coag (PPP) [Relative time] 1.06 {INR} Normal [facility] Comment on above: Performed By: #### P T, PTT ####[facility] [id number] [place], [place] [address]Dr. Farhat Leal INR GUIDELINES SEE BELOW Normal [facility] Comment on above: Result Comment: MALINA RED INR: 2.0 - 3.0 CONDITIONS NOT LISTED BELOW 2.5 - 3.5 FOR PROSTHETIC HEART VALVE REPLACEMENT 2.5 - 3.5 RECURRENT THROMBOSIS Performed By: #### P T, PTT ####[facility] [id number] [place] [address]Dr. Farhat Leal PT Coag (PPP) [Time] 11.4 s Normal 9.0-11.6 [facility] Comment on above: Performed By: #### P T, PTT ####[facility] [id number] [place] [address]Dr. Farhat Leal PTTon 09-18-2021 aPTT Coag (Bld) [Time] 27.9 s Normal 22.3-36.2 [facility] Comment on above: Performed By: #### P T, PTT ####[facility] [id number] [place] [address]Dr. Farhat Leal TSHon 09-18-2021 TSH 7.099 uIU/mL Critically high 0.358-3.740 [facility] Comment on above: Performed By: #### T SH, CMP ####[facility] [id number] [place] [address]Dr. Farhat Leal US SALOME DOP LEG RTon 09-19-19 22 US SALOME DOP LEG RT Normal [facility] XR CHEST 1 Von 09-18-2021 XR CHEST 1 V Normal [facility] XR HIP RT 2 3V W PELVISon XR HIP RT 2 3V W PELVIS Normal [facility] Vital Signs Date Time Vital Sign Value Performing Clinician Facility 03-18-2023 13:37-0500 Body temperature 98.01 [degF] Albright Hitwise DO Work Phone: [facility] 03-18-2023 13:37-0500 Diastolic blood pressure 64 mm[Hg] [facility] DO Work Phone: [facility] 03-18-2023 13:37-0500 Heart rate 72 /min [facility] DO Work Phone: [facility] 03-18-2023 13:37-0500 SaO2% (BldA) [Mass fraction] 98 % Ni Petznick DO Work Phone: [facility] 03-18-2023 13:37-0500 Systolic blood pressure 118 mm[Hg] Ni Petznick DO Work Phone: [facility] 07-20-2022 13:35-0400 Body temperature 97.4 [degF] DO Devon Ball Work Phone: [facility] 07-20-2022 13:35-0400 Diastolic blood pressure 50 mm[Hg] DO Devon Ball Work Phone: [facility] 07-20-2022 13:35-0400 Heart rate 67 /min DO Devon Ball Work Phone: [facility] 07-20-2022 13:35-0400 Respiratory rate 20 /min DO Devon Ball Work Phone: [facility] 07-20-2022 13:35-0400 Systolic blood pressure 98 mm[Hg] DO Devon Ball Work Phone: [facility] 06-29-2022 14:46-0400 Body height 193.04 cm DO Devon Ball Work Phone: [facility] 02-26-2022 13:11-0500 Body temperature 96.6 [degF] Hina Peterson MD Work Phone: [facility] 02-26-2022 13:11-0500 Diastolic blood pressure 75 mm[Hg] Hina Peterson MD Work Phone: [facility] 02-26-2022 13:11-0500 Heart rate 75 /min Hina Peterson MD Work Phone: [facility] 02-26-2022 13:11-0500 Systolic blood pressure 88 mm[Hg] Hina Peterson MD Work Phone: [facility] 02-05-2022 08:29-0500 Body temperature 96.69 [degF] [facility] Work Phone: [facility] 02-05-2022 08:29-0500 Diastolic blood pressure 42 mm[Hg] [facility] Work Phone: [facility] 02-05-2022 08:29-0500 Heart rate 79 /min [facility] Work Phone: [facility] 02-05-2022 08:29-0500 SaO2% (BldA) [Mass fraction] 100 % [facility] Work Phone: [facility] 02-05-2022 08:29-0500 Systolic blood pressure 72 mm[Hg] [facility] Work Phone: [facility] 01-12-2022 11:00-0500 Diastolic blood pressure 54 mm[Hg] Alissa Major LORRY WEIGHER.HUMAN RESOURCES TECHNICIAN Work Phone: [facility] 01-12-2022 11:00-0500 Heart rate 88 /min Alissa Major LORRY WEIGHER.HUMAN RESOURCES TECHNICIAN Work Phone: [facility] 01-12-2022 11:00-0500 SaO2% (BldA) [Mass fraction] 93 % Alissa Major LORRY WEIGHER.HUMAN RESOURCES TECHNICIAN Work Phone: [facility] 01-12-2022 11:00-0500 Systolic blood pressure 96 mm[Hg] Alissa Major LORRY WEIGHER.HUMAN RESOURCES TECHNICIAN Work Phone: [facility] 01-12-2022 10:12-0500 Body temperature 97.9 [degF] Alsisa Major LORRY WEIGHER.HUMAN RESOURCES TECHNICIAN Work Phone: [facility] 01-12-2022 10:12-0500 Respiratory rate 18 /min Alissa Major LORRY WEIGHER.HUMAN RESOURCES TECHNICIAN Work Phone: [facility] 11-17-2021 15:59-0400 Body height 193 cm No Reeder DO Work Phone: [facility] 11-17-2021 15:59-0400 Body weight 111.58 kg No Reeder DO Work Phone: [facility] 11-17-2021 15:59-0400 Diastolic blood pressure 59 mm[Hg] No Reeder DO Work Phone: [facility] 11-17-2021 15:59-0400 Heart rate 86 /min No Reeder DO Work Phone: [facility] 11-17-2021 15:59-0400 SaO2% (BldA) [Mass fraction] 97 % No Reeder DO Work Phone: [facility] 11-17-2021 15:59-0400 Systolic blood pressure 104 mm[Hg] No Reeder DO Work Phone: [facility] Encounters Encounter Date Encounter Type Care Provider Facility Start: 03-18-2023 End: 03-18-2023 ambulatory NI CABRERA Not Available Start: 03-18-2023 End: 03-18-2023 Office outpatient visit 25 minutes Ni Cabrera DO Work Phone: [facility] [address] Comment on above: 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 ([facility]/HCC) (Primary Dx); 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 ([facility]/HCC); Type 1 diabetes mellitus with nephropathy ([facility]); Type 1 diabetes mellitus with hypoglycemia and without coma ([facility]); 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 ([facility]/HCC) Start: 02-17-2023 End: 02-17-2023 ambulatory Devon Lillie Other [employer] Other Start: 02-17-2023 Telephone encounter Devon [facility] Start: 01-14-2023 End: 01-14-2023 ambulatory Devon Lillie Other [employer] Other Start: 01-14-2023 [facility] nursing facil c are/day minor complj 15 min [facility] Start: 12-10-2022 End: 12-10-2022 ambulatory Devon Lillie Other [employer] Other Start: 12-10-2022 [facility] nursing facil c are/day minor complj 15 min [facility] Start: 11-12-2022 End: 11-12-2022 ambulatory Devon Lillie Other [employer] Other Start: 11-12-2022 [facility]bs[facility] nursing facil c are/day minor complj 15 min [facility] Start: 10-16-2022 Refill Asia Pike MD Work Phone: [facility] Comment on above: Med Change Request Start: 10-12-2022 End: 10-12-2022 ambulatory Devon Moreira Other [employer] Other Start: 10-12-2022 Telephone encounter Devon NUNEZ [facility] Start: 10-08-2022 End: 10-08-2022 ambulatory Devon Moreira Other [employer] Other Start: 10-08-2022 [facility]bs[facility] nursing facil c are/day new problem 25 min [facility] Start: 09-22-2022 Refill Ariadna Mcdowell [facility] Comment on above: Rx Refills Start: 09-10-2022 End: 09-10-2022 ambulatory Devon Moreira Other [employer] Other Start: 09-10-2022 [facility]bs[facility] nursing facil c are/day new problem 25 min [facility] Start: 09-09-2022 End: 09-09-2022 ambulatory [facility] Start: 08-06-2022 End: 08-06-2022 ambulatory Devon Moreira Other [employer] Other Start: 08-06-2022 Sbsq nursing facil c are/day new problem 25 min [facility] Start: 07-22-2022 End: 07-22-2022 ambulatory Devon Moreira Other [employer] Other Start: 07-22-2022 Telephone encounter Devon Moreira MAYRA [facility] Start: 07-20-2022 End: 07-20-2022 ambulatory Sadia Aguilar Facility:[facility] Start: 07-20-2022 End: 07-20-2022 ambulatory DO Devon Moreira Work Phone: [facility] Work Phone: Start: 07-20-2022 End: 07-20-2022 Discharged Recurring DO Devon Moreira Work Phone: [facility] Work Phone: Start: 07-13-2022 End: 07-13-[address] DEVON MOREIRA Facility:[facility]1 Start: 07-10-2022 End: 07-10-[address] DEVON MOREIRA Facility:[facility] Start: 07-03-2022 End: 07-03-[address] DEVON MOREIRA Facility:[facility] Start: 06-26-2022 End: 06-26-[address] DEVON MOREIRA Facility:[facility] Start: 06-26-2022 End: 06-26-[address] DEVON MOREIRA Facility:[facility] Start: 06-25-2022 End: 06-25-2022 ambulatory Devon Moreira Other [employer] Other Start: 06-25-2022 Sbsq nursing facil c are/day minor complj 15 min Devon Moreira [facility] Start: 06-19-2022 End: 06-19-[address] DEVON MOREIRA Facility:[facility]1 Start: 06-15-2022 End: 07-15-2022 ambulatory SHAIKH Kate MURRAY Facility:[facility] Start: 06-12-2022 End: 06-12-[address] DOCTOR WALSH Facility:[facility]1 Start: 06-05-2022 Sbsq nursing facil c are/day new problem 25 min [facility] Start: 06-05-2022 End: 06-05-[address] DEVON MOREIRA [facility] [employer] Other Start: 05-29-2022 End: 05-29-[address] DEVON MOREIRA Facility:[facility]1 Start: 05-22-2022 End: 05-22-[address] DEVON MOREIRA Facility:[facility]1 Start: 05-20-2022 End: 05-20-[address] DEVON MOREIRA Facility:[facility]1 Start: 05-18-2022 End: 06-12-2022 ambulatory SHAIKH Kate MURRAY Facility:[facility] Start: 05-15-2022 End: 05-15-[address] DEVON MOREIRA Facility:[facility]1 Start: 05-13-2022 End: 05-13-2022 ambulatory Van Olivarez LORRY WEIGHER.HUMAN RESOURCES TECHNICIAN Work Phone: [facility] Comment on above: results Start: 05-13-2022 E-mail encounter fro m caregiver Van Olivarez LORRY WEIGHER.HUMAN RESOURCES TECHNICIAN Work Phone: [facility] Start: 05-08-2022 End: 05-08-[address] DEVON MOREIRA Facility:[facility]1 Start: 05-07-2022 End: 05-07-2022 ambulatory Devon Moreira Other [employer] Other Start: 05-07-2022 [facility] nursing facil c are/day new problem 25 min Devon Moreira [facility] Start: 05-06-2022 End: 05-06-[address] [...] MOREIRA Facility:H1 Start: 04-02-2022 ambulatory Van cortes LORRY WEIGHER.HUMAN RESOURCES TECHNICIAN Work Phone: [facility] Start: 04-01-2022 End: 04-01-[address] DEVON MOREIRA Facility:[facility]1 Start: 03-22-2022 Anne Pike MD Work Phone: [facility] Comment on above: Med Change Request Start: 03-21-2022 ambulatory DIAMOND H FAWWAD Facilit y:H1 Start: 03-11-2022 End: 03-11-[address] DEVON MOREIRA Facility:[facility]1 Start: 03-10-2022 End: 03-10-2022 ambulatory MILAGRO [facility] Start: 02-27-2022 Refill Samira Serna [facility] Comment on above: Rx Refills Start: 02-26-2022 End: 02-26-2022 ambulatory DEVON MOREIRA Facility:[facility] Start: 02-26-2022 End: 02-26-2022 Patient [...] Start: 02-05-2022 End: 02-06-2022 ambulatory ARTUR CHEN Facility:[facility] Start: 02-05-2022 End: 02-05-2022 Patient encounter procedure [facility] Work Phone: [facility] Comment on above: Kidney replaced by t ransplant (Primary Dx); 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; group home current use of immunosuppressive drug Start: 01-26-2022 End: 01-26-[address] DEVON MOREIRA Facility:[facility]1 Start: 01-20-2022 Telephone encounter Van Olivarez APRN.HUMAN RESOURCES TECHNICIAN Work Phone: Kidney Medicine [facility] Comment on above: Results Start: 01-19-2022 End: 01-19-[address] DEVON MOREIRA Facility:[facility]1 Start: 01-16-2022 ambulatory SHAIKH Kate MURRAY Facilit y:H1 Start: 01-12-2022 End: 01-12-2022 Subsequent hospital visit by physician Alissa Chavira APRN.HUMAN RESOURCES TECHNICIAN Work Phone: Angio Comment on above: ILIANA (acute kidney in jury) ([facility]) [N17.9] Start: 12-30-2021 End: 12-30-2021 ambulatory Paresh Fonseca MD Work Phone: Infectious Disease Comment on above: MRSA bacteremia (Arabella munira Dx); Diabetic foot ulcer with osteomyelitis (HCC) Start: 12-30-2021 End: 12-30-2021 Telemedicine consultation with patient Paresh Fonseca MD Work Phone: [facility] Start: 12-29-2021 End: 12-29-2021 [...] Agency Start: 12-08-2021 Orders Only Artur Burger charles LORRY WEIGHER.HUMAN RESOURCES TECHNICIAN Work Phone: [facility] Comment on above: Kidney replaced by t ransplant (Primary Dx) Start: 12-07-2021 ambulatory Paresh Fonseca MD Work Phone: [facility] Comment on above: CoPat Start (copat s top 12/27/21) Start: 12-05-2021 Telephone encounter Paresh Fonseca MD Work Phone: Infectious Disease Comment on above: Patient Update (evus held discussion/) Start: 12-01-2021 Follow-up encounter [facility] Provider [facility] Start: 12-01-2021 Patient encounter procedure [facility] Prov ider [facility] Department Start: 11-23-2021 End: 11-28-2021 Evaluation and management of inpatient SHAIKH Kate MURRAY Facility:H1 Start: 11-18-2021 End: 12-16-2021 ambulatory SHAIKH Kate MURRAY Facility:[facility]1 Start: 11-17-2021 End: 11-17-2021 Patient encounter procedure No Reeder Work Phone: Vascular Medicine Comment on above: Acute deep vein thro mbosis (DVT) of proximal end of right lower extremity (HCC) (Primary Dx); PAD (peripheral artery disease) (HCC); Nonhealing ulcer of heel (HCC); Anticoagulation management encounter Start: 11-14-2021 End: 11-15-2021 ambulatory [facility] Facility:H1 Start: 10-24-2021 End: 11-15-2021 ambulatory DIAMOND Kate WHEAT Facility:H1 Start: 10-22-2021 End: 10-23-2021 ambulatory [facility] Facility:H1 Start: 10-06-2021 ambulatory Van cortes LORRY WEIGHER.HUMAN RESOURCES TECHNICIAN Work Phone: [facility] Start: 09-30-2021 Refill Asia Pike MD Work Phone: [facility] Comment on above: Refill Request Start: 09-19-2021 End: 09-24-2021 Evaluation and management of inpatient DR PROSPER LEES Facility:H1 Start: 09-18-2021 End: 09-19-[address] DEVON MOREIRA Facility:[facility]1 Start: 07-11-2021 Refill Asia Pike MD Work Phone: [facility] Comment on above: Refill Request Start: 06-05-2021 Telephone encounter Van Kuldeep Olivarez LORRY WEIGHER.HUMAN RESOURCES TECHNICIAN Work Phone: [facility] Comment on above: Results Start: 02-05-2021 End: 02-13-2021 ambulatory UNKNOWN PROVIDER Facility:[facility] Procedures Date Procedure Procedure Detail Performing Clinician Start: 03-18-2023 Hemoglobin glycosyla rk a1c Ni Cabrera DO Work Phone: Start: 02-05-2022 Creatinine other source Asia Pike MD Work Phone: Start: 02-05-2022 Urnls dip stick/tabl et rgnt auto w/o microscopy Asia Pike MD Work Phone: Start: 01-12-2022 Prothrombin time Alissa Chavira LORRY WEIGHER.HUMAN RESOURCES TECHNICIAN Work Phone: Start: 12-01-2021 PACEMAKER CLINIC CHECK [facility] Provider Start: 11-29-2021 Microscopic examinat ion of blood, culture DR PROSPER LEES Comment on above: Performed By: #### B [id number] ####[facility] [id number] [place] [address]DrSkylar Leal Start: 11-27-2021 Insertion of Infusio n Device into Right Basilic Vein, Percutaneous Approach DR PROSPER LEES Start: 11-24-2021 Excision of Right Fo ot Subcutaneous Tissue and Fascia, Open Approach DR PROSPER LEES Start: 11-24-2021 Excision of Right Tarsal, Open Approach DR PROSPER LEES Start: 11-24-2021 Resection of Right L ower Leg Tendon, Open Approach DR PROSPER LEES Start: 12-29-2019 History of coronary artery bypass grafting History of coronary artery bypass surgery Ni Cabrera DO Work Phone: Start: 03-23-2012 History of renal transplant History of renal transplant Ni Cabrera DO Work Phone: Start: 09-07-2003 History of renal transplant KIDNEY TRANSPLANT STATUS Van Olivarez LORRY WEIGHER.HUMAN RESOURCES TECHNICIAN Work Phone: History of renal transplant Kidney replaced by transplant Artur Leesjasvir LORRY WEIGHER.HUMAN RESOURCES TECHNICIAN Work Phone: History of renal transplant Kidney replaced by transplant [facility]ney [facility] Work Phone: History of renal transplant Devon Lillie Other History of renal transplant Kidney replaced by transplant Asia Pike MD Work Phone: Plan of Treatment Date Care Activity Detail Author Start: 06-17-2023 End: 06-17-2023 Patient encounter procedure 06/17/2023 2:15 PM EDT Office Visit [facility] [address] [place] [id number] Ni Cabrera DO [address] [place] [address] [facility] [address] Start: 06-16-2023 Hemoglobin A1c measurement Diabetes: Hemoglobin A1C [facility] Start: 02-26-2023 BP CONTROLLED (<130/80) BP CONTROLLE D (<130/80) [facility] Start: 02-05-2023 BP CONTROLLED (<130/80) BP CONTROLLE D (<130/80) [facility] Start: 01-12-2023 BP CONTROLLED (<130/80) BP CONTROLLE D (<130/80) [facility] Start: 11-17-2022 BP CONTROLLED (<130/80) BP CONTROLLE D (<130/80) [facility] Start: 10-16-2022 Influenza vaccination C [facility] Start: 05-15-2022 Medicare Annual Wellness (AWV) Medicare Annual Wellness (AWV) [facility] Start: 04-08-2022 BP CONTROLLED (<130/80) BP CONTROLLE D (<130/80) [facility] Start: 02-15-2022 ADVANCE DIRECTIVE DISCUSSION ADVANCE DIRECTIVE DISCUSSION [facility] Start: 02-15-2022 DEPRESSION ASSESSMENT DEPRESSION ASS ESSMENT [facility] Start: 02-05-2022 COVID-19 VACCINE (5 - Yung risk series) COVID-19 VACCINE (5 - Yung risk series) [facility] Start: 11-27-2021 COVID-19 VACCINE (4 - Booster for Yung series) COVID-19 VACCINE (4 - Booster for Yung series) [facility] Start: 11-04-2021 Hemoglobin A1c/Hemoglobin.total in Blood HBA1C [facility] Start: 10-16-2021 [facility] Start: 03-26-2021 COVID-19 VACCINE (3 - Yung risk 3-dose series) COVID-19 VACCINE (3 - Yung risk 3-dose series) [facility] Start: 03-26-2021 COVID-19 VACCINE (3 - Yung risk series) COVID-19 VACCINE (3 - Yung risk series) [facility] Start: 02-15-2021 ADVANCE DIRECTIVE DISCUSSION ADVANCE DIRECTIVE DISCUSSION [facility] Start: 02-15-2021 DEPRESSION ASSESSMENT DEPRESSION ASS ESSMENT [facility] Start: 01-05-2016 Hepatitis B screening URINE AL BUMIN:CREATININE RATIO [facility] Start: 07-31-2015 Pneumococcal Vaccine : 65+ Years (3 - PCV) Pneumococcal Vaccine: 65+ Years (3 - PCV) [facility] Start: 04-06-2015 Hemoglobin A1c/Hemoglobin.total in Blood HBA1C [facility] Start: 11-22-2010 Hepatitis B surface antibody level LDL CHOLESTEROL [facility] Start: 2009 ADULT PREVNAR-13 ADULT PREVNAR-13 [facility] Start: 2009 PNEUMOVAX AGE 65 AND OVER WITH 5YR LOOKBACK (#1) PNEUMOVAX AGE 65 AND OVER WITH 5YR LOOKBACK (#1) [facility] Start: 1994 SHINGRIX VACCINE (1 of 2) SHINGRIX VACCINE (1 of 2) [facility] Start: 10-18-1963 HEPATITIS A (1 of 2 - Risk 2-dose series) HEPATITIS A (1 of 2 - Risk 2-dose series) [facility] Start: 10-18-1963 Hepatitis A Vaccine (1 of 2 - Risk 2-dose series) Hepatitis A Vaccine (1 of 2 - Risk 2-dose series) [facility] Start: 10-18-1963 SHINGRIX VACCINE (1 of 2) SHINGRIX VACCINE (1 of 2) [facility] Start: 10-18-1963 Urine microalbumin profile [facility] Start: 1962 ANNUAL PCP TEAM MANAGER TRANSITION MATTHEW DISEASE VISIT ANNUAL PCP TEAM CHRONIC DISEASE VISIT [facility] Start: 1956 Adult depression screening assessment DEPRESSION SCREENING [facility] Start: 1954 3 comp foot exam completed DIABETIC FOOT EXAM [facility] Start: 1954 Glaucoma screening Diabetes: R etinopathy Screening [facility] Start: 1954 Hepatitis C antibody , confirmatory test DILATED RETINAL EXAM [facility] Start: 1950 Pneumococcal Vaccine : 65+ (1 - PCV) Pneumococcal Vaccine: 65+ (1 - PCV) [facility] Start: 1950 PNEUMOCOCCAL: 65+ (1 - PCV) PNEUMOCOCCAL: 65+ (1 - PCV) [facility] Start: 1945 HEPATITIS A (1 of 2 - Risk 2-dose series) HEPATITIS A (1 of 2 - Risk 2-dose series) [facility] URINALYSIS, REFLEX MICROSCOPIC URINALYSIS, REFLEX MICROSCOPIC Lab Routine Screening for genitourinary condition Ordered: 10/06/2021 [facility] Work Phone: Comment on above: Ordered: 10/06/2021 URINALYSIS, REFLEX MICROSCOPIC URINALYSIS, REFLEX MICROSCOPIC Lab Routine Screening for genitourinary condition Ordered: 04/02/2022 [facility] Work Phone: Comment on above: Ordered: 04/02/2022 End: 11-17-2022 US LEG ARTERIAL PERIPH [facility] LAB US LEG ARTERIAL PERIPH [facility] Vascular Lab Routine PAD (peripheral artery disease) (HCC) Nonhealing ulcer of heel (HCC) 1 Occurrences starting 11/17/2021 until 11/17/2022 [facility] Work Phone: Comment on above: 1 Occurrences starti ng 11/17/2021 until 11/17/2022 End: 11-17-2022 US LEG VEIN DVT [facility] US LEG VEIN DVT [facility] Vascular Lab Routine Acute deep vein thrombosis (DVT) of proximal end of right lower extremity (HCC) 1 Occurrences starting 11/17/2021 until 11/17/2022 [facility] Work Phone: Comment on above: 1 Occurrences starti ng 11/17/2021 until 11/17/[address] [facility] Immunizations Immunization Date Immunization Notes Care Provider Fa cili 12-11-2021 COVID-19 booster vaccine, age 12+ yr, bivalent (PFIZER-BIONTECH) Paresh Fonseca MD Work Phone: [facility] 12-11-2021 influenza, high-dose , quadrivalent vaccine (FLUZONE HIGH DOSE QUADRIVALENT) Paresh Fonseca MD Work Phone: [facility] 12-11-2021 influenza virus vaccine, unspecified formulation Ariadna Mcdowell Phu [facility] 10-24-2021 influenza, high dose seasonal, preservative-free Ni Petznick DO Work Phone: [facility] 01-19-2019 influenza, high dose seasonal, preservative-free Ni Petznick DO Work Phone: [facility] 11-25-2017 Seasonal trivalent influenza vaccine, adjuvanted, preservative free Ni Petznick DO Work Phone: [facility] 11-05-2016 influenza, high dose seasonal, preservative-free Ni Petznick DO Work Phone: [facility] 07-30-2014 pneumococcal polysaccharide vaccine, 23 valent Ni Petznick DO Work Phone: [facility] 03-09-2011 influenza virus vaccine, unspecified formulation Van Olivarez APRN.HUMAN RESOURCES TECHNICIAN Work Phone: [facility] 12-17-2007 influenza virus vaccine, unspecified formulation Van Olivarez APRN.HUMAN RESOURCES TECHNICIAN Work Phone: [facility] Work Phone: 02-11-2006 influenza virus vaccine, unspecified formulation Van Olivarez APRN.HUMAN RESOURCES TECHNICIAN Work Phone: [facility] Work Phone: 12-07-2003 influenza virus vaccine, unspecified formulation Van Olivarez APRN.[facility] Work Phone: [facility] Work Phone: 12-07-2003 pneumococcal polysaccharide vaccine, 23 valent Van Olivarez APRN.[facility] Work Phone: [facility] Work Phone: NEGATED: Highlighted row has not occurred!12-10-2021 COVID-19 booster vaccine, age 12+ yr, bivalent ([employer]) Parseh Fonseca MD Work Phone: [facility] NEGATED: Highlighted row has not occurred!12-10-2021 influenza, high-dose, quadrivalent vaccine (FLUZONE HIGH DOSE QUADRIVALENT) Paresh Fonseca MD Work Phone: [facility] Payers Date Payer Category Payer Medicare MEDICARE MEDICAR E A AND B [id number] 2009-Present [phone] [address] [address] [place] [address] Medicare [id number] [id number] 2009 Medicare [id number] 1.13.159.2.7.3 .502030.315 2009 Unknown [employer] [employer] [place] MEDIC[employer] SUPPLEMENT [id number] 2009-Present [phone] [address] [place] [address] Indemnity [id number] 1.2.840.625146.1.13.159.2.7.3 .854460.315 2009 Unknown 1.2.840.995377. 1.13.159.2.7.3 .605120.315 2009 Unknown [id number] 2.16.8 40.1.188708.19 2009 Unknown [id number] 1959 Medicare [id number] 1959 Self-pay 1944 Unknown [id number] 2.16.840.1.715354.3.579.2.732 1944 Unknown [id number] 2.16.840.1.742863.3.579.2.593 1944 Unknown [id number] 2.16.840.1.002037.3.579.2.593 1944 Unknown [id number] 2.16.840.1.174375.3.579.2.593 1944 Unknown [id number] 2.16.840.1.758915.3.579.2.593 1944 Unknown [id number] 2.16.840.1.701282.3.579.2.593 1944 Unknown [id number] 2.16.840.1.990910.3.579.2.593 1944 Unknown [id number] 2.16.840.1.301055.3.579.2.593 1944 Unknown [id number] 2.16.840.1.586801.3.579.2.593 1944 Unknown [id number] 2.16.840.1.680467.3.579.2.593 1944 Unknown [id number] 2.16.840.1.120506.3.579.2.593 1944 Unknown [id number] 2.16.840.1.168213.3.579.2.593 1944 Unknown [id number] 2.16.840.1.892241.3.579.2.593 1944 Unknown [id number] 2.16.840.1.892034.3.579.2.593 1944 Unknown [id number] 2.16.840.1.401756.3.579.2.593 1944 Unknown [id number] 2.16.840.1.979610.3.579.2.593 1944 Unknown [id number] 2.16.840.1.464357.3.579.2.593 1944 Unknown [id number] 2.16.840.1.010635.3.579.2.593 1944 Unknown [id number] 2.16.840.1.773794.3.579.2.593 1944 Unknown [id number] 2.16.840.1.505855.3.579.2.593 1944 Unknown [id number] 2.16.840.1.639901.3.579.2.593 1944 Unknown [id number] 2.16.840.1.110993.3.579.2.593 1944 Unknown [id number] 2.16.840.1.160706.3.579.2.593 1944 Unknown [id number] 2.16.840.1.412122.3.579.2.593 1944 Unknown [id number] 2.16.840.1.266784.3.579.2.593 1944 Unknown [id number] 2.16.840.1.612164.3.579.2.593 1944 Unknown [id number] 2.16.840.1.100831.3.579.2.593 1944 Unknown [id number] 2.16.840.1.513884.3.579.2.593 1944 Unknown [id number] 2.16.840.1.052962.3.579.2.593 1944 Unknown [id number] 2.16.840.1.341106.3.579.2.593 1944 Unknown [id number] 2.16.840.1.623335.3.579.2.593 1944 Unknown [id number] 2.16.840.1.334388.3.579.2.593 1944 Unknown [id number] 2.16.840.1.785454.3.579.2.593 1944 Unknown [id number] 2.16.840.1.527149.3.579.2.593 1944 Unknown [id number] 2.16.840.1.859704.3.579.2.593 1944 Unknown [id number] 2.16.840.1.445504.3.579.2.593 1944 Unknown [id number] 2.16.840.1.188163.3.579.2.593 1944 Unknown [id number] 2.16.840.1.722647.3.579.2.593 1944 Unknown [id number] 2.16.840.1.537561.3.579.2.593 1944 Unknown [id number] 2.16.840.1.882325.3.579.2.593 1944 Unknown [id number] 2.16.840.1.643328.3.579.2.593 1944 Unknown [id number] 2.16.840.1.816134.3.579.2.593 1944 Unknown [id number] 2.16.840.1.036676.3.579.2.593 1944 Unknown [id number] 2.16.840.1.914952.3.579.2.593 1944 Unknown [id number] 2.16.840.1.997705.3.579.2.593 1944 Unknown [id number] 2.16.840.1.417210.3.579.2.593 1944 Unknown [id number] 2.16.840.1.851278.3.579.2.593 1944 Unknown [id number] 2.16.840.1.263013.3.579.2.125 9 Medicare Medicare Outpatient [id number] 2T [id number] Unknown [id number] 2.16.840.1.348853.3.579.2.593 Unknown [id number] 2.16.840.1.961618.3.579.2.593 Unknown [id number] 2.16.840.1.562997.3.579.2.531 Social History Date Type Detail Facility Start: 03-09-2011 End: 07-07-2022 Tobacco smoking status NHIS Ex-smoker [facility] Work Phone: End: 02-15-1975 History of tobacco use Current smoker [facility] Work Phone: End: 02-15-1975 History of tobacco use Cigarette Smoker [facility] Work Phone: Start: 04-08-2021 End: 02-26-2022 Alcohol intake Current drinker of alcohol (finding) [facility] Start: 1945 Sex Assigned At Not on file [facility] Start: 03-09-2011 End: 10-20-2022 Cigarettes smoked current (pack per day) - Reported 1 [facility] Work Phone: Start: 03-09-2011 End: 02-26-2022 Tobacco use and exposure Smokeless tobacco non-user [facility] Start: 09-25-2021 History SDOH Financial 5 [facility] Start: 09-25-2021 History SDOH Food Worry 1 [facility] Start: 09-25-2021 History SDOH Transpo rt Med 2 [facility] Start: 09-14-2021 End: 01-12-2022 Exposure to SARS-CoV-2 (event) Not sure [facility] Start: 02-26-2022 End: 10-20-2022 Sex Assigned At [facility] Work Phone: Start: 1945 Sex Assigned At Male F [facility] How hard is it for y ou to pay for the very basics like food, housing, medical care, and heating Not hard at all [facility] Work Phone: (I/We) worried shiloh er (my/our) food would run out before (I/we) got money to buy more. Never true [facility] Work Phone: In the past 12 month s, was there a time when you were not able to pay the mortgage or rent on time? No [facility] Work Phone: Start: 03-18-2023 Alcohol intake Ex-drinker (finding) [facility] How often to you hav e a drink containing alcohol? 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 Encouraged to check blood glucose throughout the day with some fasting and some PP readings. They are to bring their glucose meter/cgm in to all appointments. All of the patients questions, treatment options, and current care plan and goals were discussed. A copy of this along with pertinent instructions were given to the patient at the end of the appointment. The patient voices understanding of all of this and is to call in between appointments if they have any problems or questions. Alex Almonte control is stable overall. , The patient is wearing their cgm on a daily basis and making decisions in regards to adjusting insulin daily as well for at least the last 60 days , Instructions given today include: Hypoglycemia management and Insulin instructions. Decrease lantus and decrease humalog at breakfast and lunch to help prevent low bg. Images from the original note were not included. Alex Almonte is a 77 y.o. male presents with chief complaint of Diabetes HPI: Diabetes Mellitus Follow-up: Alex Almonte is here for follow-up evaluation of diabetes mellitus. The initial diagnosis of diabetes was made in 1976 Diabetes complications: neuropathy, cardiovascular disease, peripheral vascular disease, amputation, and non healing ulcers He has been checking his blood glucose with a IActionable shaan 14 CGM - READER- on a daily basis. He is dipping some overnight as well as after breakfast and lunch. Rising after hypoglycemia. Last A1c: 8.8 on 10/20/2022 Last eye exam: over due Current concerns include: Shaan reader was reading 46 and finger stick read 46. BG increased to 59 mg/dl and rising on cgm prior to him leaving the office. He is being transported by a semi driver. He states he took insulin breakfast and lunch was served early.They gave him his insulin for lunch but he was not very hungry and didn't eat much States bg levels are fluctuating Diet: [facility] provided food Exercise: none Hypoglycemia: he is unsure SUBJECTIVE: RECENT LABS: A1c Lab Results Component Value Date HGBA1C 7.8 03/18/2023 HGBA1C 8.8 10/20/2022 See medication list at the end of the note. Allergies Allergen Reactions Pyridostigmine Nausea Only Other Reaction(s): GI Upset, GI upset , nausea REVIEW OF SYMPTOMS: Review of Systems Constitutional: Positive for fatigue. Negative for appetite change and unexpected weight change. Eyes: Positive for visual disturbance. Respiratory: Negative for cough, shortness of breath and wheezing. Cardiovascular: Negative for chest pain, palpitations and leg swelling. Neurological: Positive for numbness. Endocrine: Negative for polydipsia, polyphagia and polyuria. OBJECTIVE: Visit Vitals BP 118/64 Pulse 72 Temp 98 F SpO2 98% Smoking Status Former Physical Exam Constitutional: General: He is not in acute distress. Appearance: Normal appearance. Cardiovascular: Rate and Rhythm: Normal rate and regular rhythm. Heart sounds: No murmur heard. No friction rub. No gallop. Pulmonary: Breath sounds: Normal breath sounds. No wheezing, rhonchi or rales. Musculoskeletal: Comments: Bilateral lower leg amputee Neurological: Mental Status: He is alert. 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 Encouraged to check blood glucose throughout the day with some fasting and some PP readings. They are to bring their glucose meter/cgm in to all appointments. All of the patients questions, treatment options, and current care plan and goals were discussed. A copy of this along with pertinent instructions were given to the patient at the end of the appointment. The patient voices understanding of all of this and is to call in between appointments if they have any problems or questions. Alex Almonte control is stable overall. , The patient is wearing their cgm on a daily basis and making decisions in regards to adjusting insulin daily as well for at least the last 60 days , Instructions given today include: Hypoglycemia management and Insulin instructions. Decrease lantus and decrease humalog at breakfast and lunch to help prevent low bg. 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 Patient's Medications New Prescriptions No medications on file Previous Medications ACETAMINOPHEN (TYLENOL) 500 MG TABLET Take 1,000 mg by mouth every 6 (six) hours if needed for mild pain. ASPIRIN 81 MG EC TABLET Take 81 mg by mouth in the morning. ATORVASTATIN (LIPITOR) 40 MG TABLET Take 40 mg by mouth in the morning. CONTINUOUS BLOOD GLUC SENSOR (FREESTYLE SHAAN 14 DAY SENSOR) MISC Inject 1 each under the skin every 14 (fourteen) days. FAMOTIDINE (PEPCID) 20 MG TABLET Take 20 mg by mouth in the morning. GLUCAGON 1 MG INJECTION 1 mg IPRATROPIUM-ALBUTEROL (DUO-NEB) 0.5-2.5 MG/3 ML NEBULIZER SOLUTION Take by nebulization every 6 (six) hours if needed LATANOPROST (XALATAN) 0.005 % OPHTHALMIC SOLUTION PREDNISONE (DELTASONE) 5 MG TABLET Take 5 mg by mouth in the morning. SENNA-DOCUSATE (YASMIN-COLACE) 8.6-50 MG TABLET Take 1 tablet by mouth every 12 (twelve) hours SULFAMETHOXAZOLE-TRIMETHOPRIM (BACTRIM) 400-80 MG TABLET 3 (three) times a week TACROLIMUS (PROGRAF) 1 MG CAPSULE Take 1 mg by mouth. 2 capsules am 1 capsule pm TORSEMIDE (DEMADEX) 20 MG TABLET Take 20 mg by mouth in the morning. TRAMADOL (ULTRAM) 50 MG TABLET Take 50 mg by mouth 2 (two) times a day as needed WARFARIN (COUMADIN) 4 MG TABLET 4mg T, TH, Sat, Sun 6mg M, W, Fr Modified Medications Modified Medication Previous Medication INSULIN LISPRO (HUMALOG) 100 UNIT/ML INJECTION insulin lispro (HumaLOG) 100 unit/ml injection 3 units breakfast, 5 units lunch, 8 units dinner plus correction 1:75 mg/dl (max daily 30 units) 4 units breakfast, 6 units lunch, 8 units dinner plus correction 1:75 mg/dl (max daily 30 units) LANTUS SOLOSTAR 100 UNIT/ML PEN Lantus SoloStar 100 UNIT/ML pen Inject 18 Units under the skin in the morning. Inject 20 Units under the skin in the morning. Discontinued Medications FUROSEMIDE (LASIX) 20 MG TABLET Take 20 mg by mouth in the morning. documented in this encounter [facility] 01-14-2023 Evaluation note Encounter Date Diagnosis Assessment [...] are maintaining regular scheduled appts with their public address system mechanic. No bleeding complications Dec, Hyperlipidemia LDL goal [...] fluid balance and to avoid dehydration. Dec, group home (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 of insulin (ICD-10 - Z79.4) [facility] Other 10-26-2023 Evaluation note* Encounter Date Diagnosis Assessment Notes Treatment Notes Treatment Clinical Notes Nov, Longstanding persistent atrial fibrillation (ICD-10 - I48.11) This patient is in NSR or rate controlled. This patient is anticoagulated to prevent thromboembolic events. They are maintaining regular scheduled appts with their public address system mechanic. No bleeding complications Nov, Hyperlipidemia LDL goal [...] Z94.0) Monthly labs to transplant clinic Nov, terminal makeup operator (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 of insulin (ICD-10 - Z79.4) [facility] Other 09-28-2023 Evaluation note* Encounter Date Diagnosis [...] are maintaining regular scheduled appts with their public address system mechanic. No bleeding complications Oct, Type 1 diabetes [...] - Z94.0) Continue routine surveillance labs. Oct, terminal makeup operator (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 of insulin (ICD-10 - Z79.4) [facility] Other 09-01-2023 Miscellaneous Notes* Telephone Encounter - Mary Martinez - 10/16/2022 1:08 PM EDT Pharmacy comment: REQUEST FOR 90 DAYS PRESCRIPTION. DX Code Needed. 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 No bleeding complications Sep, Type 1 diabetes [...] risk for cerebrovascular and cardiovascular disease. Sep, group home (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 of insulin (ICD-10 - Z79.4) Sep, Kidney transplant status (ICD-10 - Z94.0) f/u transplant clinic Continue surveillance labs [facility] Other 08-08-2023 Miscellaneous Notes* Telephone Encounter - Ariadna Mcdowell Tech - 09/22/2022 8:58 AM EDT Pharmacy requesting refills as follows: Requested Prescriptions Pending Prescriptions Disp Refills tacrolimus IR (PROGRAF) 1 mg capsule Sig: Take 1 capsule by mouth DAILY AT 6 PM. Please review and advise. Ariadna Mcdowell, [facility]* Encounter Date Diagnosis Assessment Notes Treatment Notes Treatment Clinical Notes Aug, Longstanding persistent atrial fibrillation (ICD-10 - I48.11) This patient is in NSR or rate controlled. This patient is anticoagulated to prevent thromboembolic events. They are maintaining regular scheduled appts with their public address system mechanic. No s/s bleeding Aug, Type 1 diabetes mellitus with hyperglycemia (ICD-10 - E10.65) labile BS, several hypoglycemic epdisodes Contiue to follow ISS per Dr. Cabrera Aug, Autonomic neuropathy associated with type 1 [...] risk for cerebrovascular and cardiovascular disease. Aug, group home (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 of insulin (ICD-10 - Z79.4) Aug, Kidney transplant status (ICD-10 - Z94.0) Continue close surveillance w/ labs [facility] Other 07-26-2023 NotePatient here for 1.5 year follow up and device check. Lightheaded in the office today, as BP is very low. He denies chest pain, SOB, palpitations, and bleeding on warfarin. Had routine labs last week. Review of Systems Musculoskeletal: Positive for arthritis, joint pain and myalgias. Neurological: Positive for light-headedness. All other systems reviewed and are negative.[facility] 09-09-2022 NoteUT Electrophysiology Consult Note Reason [...] at about 50-60 systolic. patient with friend/ semi driver from facility, we will take patient [...] of the right coronary artery with robust pauo-rj-tzgso collaterals. 5. Normal global left ventricular systolic [...] Follow up with Dr. Galvez in the [facility] in the next 2 weeks; he may follow up with Dr. Orosco as needed for interventional issues. 5. Follow up with Dr. Devon Moreira as scheduled. PMH: Past Medical History: Diagnosis Date Abnormal ECG Arrhythmia Atrial fibrillation (CMS/HCC) Chronic kidney disease Coronary artery disease Diabetes mellitus (CMS/HCC) (more content not included)...[facility]06-22-2023 Evaluation note* Encounter Date Diagnosis Assessment [...] are maintaining regular scheduled appts with their public address system mechanic. No bleeding complications Jul, Type 1 diabetes [...] risk for cerebrovascular and cardiovascular disease. Jul, group home (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 of insulin (ICD-10 - Z79.4) Jul, Kidney transplant status (ICD-10 - Z94.0) Monthly labs, ongoing surveillance from transplant clinic [facility] Other 05-15-2023 Progress note Author Sadia Aguilar [facility] June 29, 2022 2:47pm Note Date/Time June 29, 2022 2:46p m [facility] [address] [place] [address] Wound Center Provider Note Signed Patient: Alex Almonte MR#: [id number] : 1945 Acct:[id number] Age/Sex: 76 / M Copies to: DO Sadia Whyte APRN~ HPI Date of Visit Date of Visit: Date of Service: 06/29/2022 Time of Service: 14:45 Narrative HPI: 12/30/21 Aelx is a 76 year old male presenting to [facility] wound care for aninitial visit for eval and treatment of a sacral/coccyx area pressure ulcer. He resides at [facility]. There is an CLINICAL OUTCOMES MANAGER present for the visit. Medicalhoney gel will [...] his brief that was cleaned by this va underwriter as well as another nursing staff member, [...] from initial visit here Mode of Arrival/ Cement Sprayer Helper: Facility vehicle Assistive Device Used Today: Wheelchair and Indra Lives with:: Care/Nursing Facility Appetite Description: Within Normal Limits Who helps w/ dressing change?: Nursing Facility Why Do You Need Help?: Can't Reach Ulcer, Limited mobility and Taxing effort to leave home Smoking Status: Former smoker [facility] Medical History (Updated 03/03/22 @ 14:41 [...] Ulcer/Injury Staging: Unstageable Bed Appearance: Beefy Red, [place], Yellow and Rolled Edges Percent of Wound [...] By: <Electronically signed by DAVID Aguilar> 06/29/221446 [facility] Work Phone: 1(386) 608-365905-11-2023 Evaluation note* Encounter Date Diagnosis Assessment Notes [...] are maintaining regular scheduled appts with their public address system mechanic. No bleeding complications June, Hyperlipidemia LDL goal <100 (ICD-10 - E78.5) Instructed on diet and exercise with continued statin therapy.Discussed the beneficial effects of lowering cholesterol in reducing the risk for cerebrovascular and cardiovascular disease. June, terminal makeup operator (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 of insulin (ICD-10 - Z79.4) June, Kidney transplant status (ICD-10 - Z94.0) No s/s rejection [facility] Other 04-24-2023 Progress note Author Sadia Aguilar [facility] June 08, 2022 2:10pm Note Date/Time June 08, 2022 2:1 0pm [facility] [address] [place] [address] Wound Center Provider Note Signed Patient: Alex Almonte MR#: [id number] : 1945 Acct:[id number] Age/Sex: 76 / M Copies to: DO Sadia Whyte, DAVID~ HPI Date of Visit Date of Visit: Date of Service: 06/08/2022 Time of Service: 14:07 Narrative HPI: 12/30/21 Alex is a 76 year old male presenting to [facility] wound care for aninitial visit for eval and treatment of a sacral/coccyx area pressure ulcer. He resides at [facility]. There is an CLINICAL OUTCOMES MANAGER present for the visit. Medicalhoney gel will [...] his brief that was cleaned by this va underwriter as well as another nursing staff member, [...] from initial visit here Mode of Arrival/ Cement Sprayer Helper: Facility vehicle Assistive Device Used Today: Wheelchair and Indra Lives with:: Care/Nursing Facility Appetite Description: Within Normal Limits Who helps w/ dressing change?: Nursing Facility Why Do You Need Help?: Can't Reach Ulcer, Limited mobility and Taxing effort to leave home Smoking Status: Former smoker [facility] Medical History (Updated 03/03/22 @ 14:41 [...] Ulcer/Injury Staging: Unstageable Bed Appearance: Beefy Red, [place], Yellow and Rolled Edges Percent of Wound [...] <Electronically signed by DAVID Aguilar> 06/08/22 1410 [facility] Work Phone: 1(570) 593-816804-21-2023 Evaluation note* Encounter Date Diagnosis Assessment Notes [...] are maintaining regular scheduled appts with their public address system mechanic. May, terminal makeup operator (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 of insulin (ICD-10 - Z79.4) May, Kidney transplant status (ICD-10 - Z94.0) routine labs per clinic. 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 No open ulcerations present Pain controlled [facility] Other 03-27-2023 Progress note Author Sadia Aguilar [facility] May 11, 2022 1:41pm Note Date/Time May 11, 2022 1:4 0pm [facility] [address] [place] [address] Wound Center Provider Note Signed Patient: Alex Almonte MR#: [id number] : 1945 Acct:[id number] Age/Sex: 76 / M Copies to: Devon Moreira,DO Sadia Aguilar, LORRY WEIGHER~ HPI Date of Visit Date of Visit: Date of Service: 05/11/2022 Time of Service: 13:38 Narrative HPI: 12/30/21 Alex is a 76 year old male presenting to [facility] wound care for aninitial visit for eval and treatment of a sacral/coccyx area pressure ulcer. He resides at [facility]. There is an CLINICAL OUTCOMES MANAGER present for the visit. Medicalhoney gel will [...] his brief that was cleaned by this va underwriter as well as another nursing staff member, [...] from initial visit here Mode of Arrival/ Cement Sprayer Helper: Facility vehicle Assistive Device Used Today: Wheelchair and Indra Lives with:: Care/Nursing Facility Appetite Description: Within Normal Limits Who helps w/ dressing change?: Nursing Facility Why Do You Need Help?: Can't Reach Ulcer, Limited mobility and Taxing effort to leave home Smoking Status: Former smoker [facility] Medical History (Updated 03/03/22 @ 14:41 [...] Ulcer/Injury Staging: Unstageable Bed Appearance: Beefy Red, [place] and Yellow Percent of Wound Bed Granulated/Red: [...] 15 Dictated By: Sadia Aguilar APRN DD/ Signed By: <Electronically signed by DAVID Aguilar> 05/11/[address] [facility] Work Phone: 1(532) 287-140603-23-2023 Evaluation note* Encounter Date Diagnosis Assessment Notes [...] are maintaining regular scheduled appts with their public address system mechanic. Apr, Type 1 diabetes mellitus with hyperglycemia [...] are reviewed at the office visit Apr, group home (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 of insulin (ICD-10 - Z79.4) Apr, Kidney transplant status (ICD-10 - Z94.0) Serial labs by clinic Hydrate, tatiana ARVIZU [employer] Other 03-10-2023 NoteHNO ID: [id number] Author: Keyur Brown MD Service: ? Author Type: Physician Type: Progress Notes Filed: 04/24/2022 10:32 AM Note Text: Encounter opened in error, patient not seen.[facility]02-28-2023 Progress note Author Sadia Aguilar [facility] April 14, 2022 2:19pm Note Date/Time April 14, 2022 2:18pm [facility] [address] [place] [address] Wound Center Provider Note Signed Patient: Alex Almonte MR#: [id number] : 1945 Acct:[id number] Age/Sex: 76 / M Copies to: DO Sadia Whyte, DAVID~ HPI Date of Visit Date of Visit: Date of Service: 04/14/2022 Time of Service: 14:18 Narrative HPI: 12/30/21 Alex is a 76 year old male presenting to [facility] wound care for aninitial visit for eval and treatment of a sacral/coccyx area pressure ulcer. He resides at [facility]. There is an CLINICAL OUTCOMES MANAGER present for the visit. Medicalhoney gel will [...] his brief that was cleaned by this va underwriter as well as another nursing staff member, [...] from initial visit here Mode of Arrival/ Cement Sprayer Helper: Facility vehicle Assistive Device Used Today: Wheelchair and Indra Lives with:: Care/Nursing Facility Appetite Description: Within Normal Limits Who helps w/ dressing change?: Nursing Facility Why Do You Need Help?: Can't Reach Ulcer, Limited mobility and Taxing effort to leave home Smoking Status: Former smoker [facility] Medical History (Updated 03/03/22 @ 14:41 [...] Ulcer/Injury Staging: Unstageable Bed Appearance: Beefy Red, [place] and Yellow Percent of Wound Bed Granulated/Red: [...] By: <Electronically signed by DAVID Aguilar> 04/14/[address] [facility] Work Phone: 1(668) 691-645802-16-2023 NotePatient Outreach (KIMBERLY) ALEX ALMONTE ([id number]) 1945 M TRN Date Time Provider Department 04/02/22 VAN OLIVAREZ During your visit today, we recorded the following information about you: Allergies As of Date: 04/02/2022 Noted Allergy Reaction PYRIDOSTIGMINE BROMIDE 08/04/2021 8 - GI Upset Date Reviewed: 02/26/2022 Reviewed by: Braden Abel MA - Fully Assessed Visit Diagnosis:Screening for genitourinary condition [Z13.89] Order(s):URINALYSIS, REFLEX MICROSCOPIC [QXM2982] Order #: [id number] Prescriptions as of 04/06/2022 - tacrolimus IR [...] by mouth daily with lunch. 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 Kellenfransicovaibhav Dunia documented in this encounterKettering [facility]02-07-2023 Progress note Author Sadia Aguilar [facility] March 24, 2022 3:00pm Note Date/Time March 24, 2022 2 :59pm [facility] [address] [place] [address] Wound Center Provider Note Signed Patient: Alex Almonte MR#: [id number] : 1945 Acct:[id number] Age/Sex: 76 / M Copies to: Devon Moreira,DO Sadia Aguilar APRN~ HPI Date of Visit Date of Visit: Date of Service: 03/24/2022 Time of Service: 14:58 Narrative HPI: 12/30/21 Alex is a 76 year old male presenting to [facility] wound care for aninitial visit for eval and treatment of a sacral/coccyx area pressure ulcer. He resides at [facility]. There is an CLINICAL OUTCOMES MANAGER present for the visit. Medicalhoney gel will [...] his brief that was cleaned by this va underwriter as well as another nursing staff member, [...] from initial visit here Mode of Arrival/ Cement Sprayer Helper: Facility vehicle Assistive Device Used Today: Wheelchair and Indra Lives with:: Care/Nursing Facility Appetite Description: Within Normal Limits Who helps w/ dressing change?: Nursing Facility Why Do You Need Help?: Can't Reach Ulcer, Limited mobility and Taxing effort to leave home Smoking Status: Former smoker [facility] Medical History (Updated 03/03/22 @ 14:41 [...] Ulcer/Injury Staging: Unstageable Bed Appearance: Beefy Red, [place] and Yellow Percent of Wound Bed Granulated/Red: [...] <Electronically signed by DAVID Aguilar> 03/24/[address] [facility] Work Phone: 1(191) 703-911701-17-2023 Progress note Author Sadia Aguilar [facility] March 03, 2022 2:41pm Note Date/Time March 03, 2022 2 :41pm [facility] [address] [place] [address] Wound Center Provider Note Signed Patient: Alex Almonte MR#: [id number] : 1945 Acct:[id number] Age/Sex: 76 / M Copies to: DO Sadia Whyte APRN~ HPI Date of Visit Date of Visit: Date of Service: 03/03/2022 Time of Service: 14:38 Narrative HPI: 12/30/21 Alex is a 76 year old male presenting to [facility] wound care for aninitial visit for eval and treatment of a sacral/coccyx area pressure ulcer. He resides at [facility]. There is an CLINICAL OUTCOMES MANAGER present for the visit. Medicalhoney gel will [...] his brief that was cleaned by this va underwriter as well as another nursing staff member, [...] from initial visit here Mode of Arrival/ Cement Sprayer Helper: Facility vehicle Assistive Device Used Today: Wheelchair and Indra Lives with:: Care/Nursing Facility Appetite Description: Within Normal Limits Who helps w/ dressing change?: Nursing Facility Why Do You Need Help?: Can't Reach Ulcer, Limited mobility and Taxing effort to leave home Smoking Status: Former smoker [facility] Medical History (Updated 03/03/22 @ 14:41 [...] Ulcer Pressure Ulcer/Injury Staging: Unstageable Bed Appearance: [place] and Yellow Percent of Wound Bed Granulated/Red: 90 Percent of Devitalized: 10 Length (cm): 2.2 Width (cm): 1.8 Depth (cm): 1.9 CM Sq: 3.960 Surrounding Tissue Appearance: [place], Hyperpigmented and Satellite lesions Surrounding Tissue Temp: [...] <Electronically signed by DAVID Aguilar> 03/03/22 [address] [facility] Work Phone: 1(729) 886-175801-13-2023 Miscellaneous Notes* Telephone Encounter - RAUL Davidson - 02/27/2022 10:24 AM EST Patient phones requesting refills as follows: Per pts sister takes 1 mg in AM and 1 mg in PM Requested Prescriptions Pending Prescriptions Disp Refills tacrolimus IR (PROGRAF) 1 mg capsule Sig: Take 2 capsules by mouth DAILY (6 AM). Please review and advise. RAUL Davidson documented in this encounterKettering Health [facility]in [facility]01-12-2023 NoteHNO ID: [id number] Author: Hina Peterson MD Service: ? Author Type: Physician Type: Progress Notes Filed: 02/26/2022 4:31 PM Note Text: [facility] , [facility] [place] DEPARTMENT OF VASCULAR SURGERY OUTPATIENT VISIT DATE [...] his postop visit. He has been in residential since then and has been recovering from his acute on chronic congestive heart failure. His wound has largely been healing without any issues and the maxwell and sutures were removed at the nursing facility. He comes here with a lateral wound eschar. He denies any fevers, chills, or any drainage. He is on anticoagulation. 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 Take one (1) tablet -W- tacrolimus IR (PROGRAF) 1 mg capsule Take [...] by mouth daily with lunch. Magic Cup [place] with lunch aspirin, enteric coated (ASPIRIN, ENTERIC COATED) 81 mg EC tablet Take 1 tablet by mouth once daily. predniSONE (DELTASONE) 5 mg tablet TAKE 1 TABLET BY MOUTH EVERY DAY oxyCODONE IR (ROXICODONE) 5 mg immediate release tablet 1-2 tablets by ORAL/FEEDING TUBE route every 3 hours as needed. Food Supplement, Lactose-Free (ENSURE MAX (more content not included)... [facility]01-12-2023 History of Present illness Narrative* Hina Peterson MD - 02/26/2022 4:25 PM EST Images from the original note were not included. [facility] [place] DEPARTMENT OF VASCULAR SURGERY OUTPATIENT VISIT DATE [...] his postop visit. 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 Patient on mycophenolate mofetil ,cellcept and prednisone Mixed hyperlipidemia due to type 2 diabetes mellitus ([facility]) 11/29/2021 Osteomyelitis ([facility]) 11/29/2021 Paroxysmal atrial fibrillation ([facility]) Renal transplant, status post SA node dysfunction ([facility]) s/p pacemaker Type 2 diabetes mellitus with diabetic neuropathy, with long-term current use of insulin ([facility]) 02/24/2002 PAST SURGICAL HISTORY Procedure Laterality Date [...] by mouth daily with lunch. Magic Cup [place] with lunch aspirin, enteric coated (ASPIRIN, ENTERIC [...] 2022 TIME: 4:26 PM documented in this encounterKettering Health [facility]01-05-2023 Miscellaneous Notes* Telephone Encounter - Gwen Beard - 02/19/2022 12:22 PM ESTSummary: rescheduled appt Alex Almonte appointments have been scheduled accordingly. Patient has been notified via telephone and appointment schedule sent via My Chart Gwen Beard February 19, 2022 12:22 PM * Telephone Encounter - Yumiko Denise - 02/18/2022 3:11 PM EST Reason for call: Mr. Almonte would like to request a sooner appointment with Dr. Peterson than 04/13/2022. Contact Name (if not the patient) Alex's nurse Home and cell number(Ask for Alex's nurse) [phone] Diagnosis 4 mo f/u wound check Yumiko Mcclain documented in this encounterKettering Health [facility] Center01-05-2023 Miscellaneous Notes* Telephone Encounter - Augusta Medrano RN - 02/19/2022 11:11 AM EST Alex Kate Victoria's nursing facility, [facility], called regarding elevated tacrolimus level (23.9). Spoke with bedside nurse, Zoe, today. Level is from last week- unable to clearly determine if medications were held prior to lab work. Reviewed with nurse morning labs should occur prior to lab draws. Patient is scheduled for repeat labs tomorrow. Will assess new level. Augusta Medrano RN documented in this encounterKettering Health [facility]01-04-2023 Miscellaneous Notes* Telephone Encounter - [...] advise. Mercedez Tavares MA documented in this encounterKettering Health [facility]in [facility] Center12-27-2022 Progress note Author Sadia Aguilar [facility] February 10, 2022 3:47pm Note Date/Time February 10, 2022 3:47pm [facility] [address] [place] [address] Wound Center Provider Note Signed Patient: Alex Almonte MR#: [id number] : 1945 Acct:[id number] Age/Sex: 76 / M Copies to: DO Sadia Whyte, DAVID~ HPI Date of Visit Date of Visit: Date of Service: 02/10/2022 Time of Service: 15:44 Narrative HPI: 12/30/21 Alex is a 76 year old male presenting to [facility] wound care for aninitial visit for eval and treatment of a sacral/coccyx area pressure ulcer. He resides at [facility]. There is an CLINICAL OUTCOMES MANAGER present for the visit. Medicalhoney gel will [...] his brief that was cleaned by this va underwriter as well as another nursing staff member, few weeks to follow up Subjective Pain Coccyx: Pain Description: Intermittent Pain Intensity: 0 Wound/Ulcer History When did wound start?: 4 weeks ago- from initial visit here Mode of Arrival/ Cement Sprayer Helper: Facility vehicle Assistive Device Used Today: Wheelchair and Indra Lives with:: Care/Nursing Facility Appetite Description: Within Normal Limits Who helps w/ dressing change?: Nursing Facility Why Do You Need Help?: Can't Reach Ulcer, Limited mobility and Taxing effort to leave home Smoking Status: Former smoker [facility] Medical History (Updated 01/20/22 @ 14:21 [...] Ulcer Pressure Ulcer/Injury Staging: Unstageable Bed Appearance: [place] and Yellow Percent of Wound Bed Granulated/Red: 90 Percent of Devitalized: 10 Length (cm): 2.5 Width (cm): 2.3 Depth (cm): 2.1 CM Sq: 5.750 Surrounding Tissue Appearance: [place], Hyperpigmented and Satellite lesions Surrounding Tissue Temp: [...] Signed By: <Electronically signed by DAVID Aguilar> 02/10/227 [facility] Work Phone: 1(461) 860-181612-22-2022 NoteHNO ID: [id number] Author: Asia Pike MD Service: ? Author Type: Physician Type: Progress Notes Filed: 02/05/2022 9:38 AM Note Text: [facility] [place] Transplant Follow up Portions of this note [...] and snacks patient declined. Indra scale at SNF: 166.2 lbs per patient. Bed sore on coccyx causing discomfort. Being changed regularly at SNF- reported to be smaller around but still as deep. Patient not very up to date with medications. Patient brought paperwork from [employer] with all medications being received. Patient unsure if they have been drawing labs regularly. Last Tac from 01/19: 12.9 and K 5.9. In need of current labs. Lab orders will be sent with patient and follows as below: Kidney and Pancreas Transplant Standing Lab Orders [id number] [place], [place] [address] February 05, 2022 Aelx Almonte 1945 [id number] STANDARD TESTING: Diagnosis Codes: Z94.0 Kidney Transplant [...] AT YOUR LABORATORY FACILITY AND FAX TO [phone]. PLEASE CALL [phone]. Provider: Dr. Pike Current Outpatient Medications Medication [...] by mouth daily with lunch. Magic Cup [place] with lunch aspirin, enteric coated (ASPIRIN, ENTERIC COATED) 81 mg EC tablet Take 1 tablet by mouth once daily. atorvastatin (LIPITOR) 40 mg tablet 1 tablet by ORAL/FEEDING TUBE route daily at bedtime. (more content not included)...[facility]12-22-2022 History of Present illness Narrative* Asia Pike MD - 02/05/2022 8:20 AM EST Images from the original note were not included. [facility] [place] Transplant Follow up Portions of this note [...] and snacks patient declined. Indra scale at [facility]: 166.2 lbs per patient. Bed sore on coccyx causing discomfort. Being changed regularly at SNF- reported to be smaller around but still as deep. Patient not very up to date with medications. Patient brought paperwork from [employer] with all medications being received. Patient unsure if they have been drawing labs regularly. Last Tac from 01/19: 12.9 and K 5.9. In need of current labs. Lab orders will be sent with patient and follows as below: Kidney and Pancreas Transplant Standing Lab Orders [id number] [facility] [address] [place], [place] [address] February 05, 2022 Alex Almonte 1945 [id number] STANDARD TESTING: Diagnosis Codes: Z94.0 Kidney Transplant [...] AT YOUR LABORATORY FACILITY AND FAX TO [phone]. PLEASE CALL [phone]. Provider: Dr. Pike Current Outpatient Medications Medication [...] by mouth daily with lunch. Magic Cup [place] with lunch aspirin, enteric coated (ASPIRIN, ENTERIC [...] All other system reviews negative. Augusta Medrano menu planner: February 05, 2022 9:34 AM I have [...] complexity. Asia Pike MD documented in this encounterKettering Health [facility]12-06-2022 Progress note Author Sadia Aguilar [facility] January 20, 2022 2:21pm Note Date/Time January 20, 2022 2 :21pm [facility] [address] [place] [address] Wound Center Provider Note Signed Patient: Alex Almonte MR#: [id number] : 1945 Acct:[id number] Age/Sex: 76 / M Copies to: DO Sadia Whyte APRN~ HPI Date of Visit Date of Visit: Date of Service: 01/20/2022 Time of Service: 14:17 Narrative HPI: 12/30/21 Alex is a 76 year old male presenting to [facility] wound care for aninitial visit for eval and treatment of a sacral/coccyx area pressure ulcer. He resides at [facility]. There is an CLINICAL OUTCOMES MANAGER present for the visit. Medicalhoney gel will [...] from initial visit here Mode of Arrival/ Cement Sprayer Helper: Facility vehicle Assistive Device Used Today: Wheelchair and Indra Lives with:: Care/Nursing Facility Appetite Description: Within Normal Limits Who helps w/ dressing change?: Nursing Facility Why Do You Need Help?: Can't Reach Ulcer, Limited mobility and Taxing effort to leave home Smoking Status: Former smoker [facility] Medical History (Updated 01/20/22 @ 14:21 [...] Ulcer Pressure Ulcer/Injury Staging: Unstageable Bed Appearance: [place] and Yellow Percent of Wound Bed Granulated/Red: 40 Percent of Devitalized: 60 Length (cm): 5.2 Width (cm): 3.4 Depth (cm): 1.8 CM Sq: 17.680 Surrounding Tissue Appearance: [place] and Hyperpigmented Surrounding Tissue Temp: Warm Drainage [...] <Electronically signed by DAVID Aguilar> 01/20/[address] [facility] Work Phone: 1(954) 520-239212-06-2022 Miscellaneous Notes* Telephone Encounter - Van Olivarez APRN.CNP - 01/20/2022 1:12 PM EST Labs noted from yesterday. Pt is currently residing at [facility], I spoke with the Nurse, the results has been addressed by Physician caring for pt. He had been placed on Chlor Con and this has been discontinued and hyperkalemia has been treated. Van Olivarez APRN.CNP documented in this encounterKettering Health [facility] Center11-28-2022 Surgical operation note* Brief Op Note - Misbah Landis PA-C - 01/12/2022 10:41 AM EST BRIEF OPERATIVE / PROCEDURE NOTE LOG ID: [id number] SURGERY/PROCEDURE DATE: 01/12/2022 INCISION/PROCEDURE START TIME: 10:32 AM INCISION CLOSE/PROCEDURE END TIME: 10:35 AM SURGEON(S)/PROCEDURALIST(S) AND MEDICAL OFFICE RECEPTIONIST(S): Misbah Landis PA-C SURGERY/PROCEDURE(S): Removal tunneled vascular access catheter under local anesthesia ANESTHESIA: Procedural Sedation FINDINGS: Catheter removed intact ESTIMATED BLOOD LOSS: 0 ml SPECIMENS: None COMPLICATIONS: None PRE-OP/PRE-PROCEDURE DIAGNOSIS: Foot Ulcer POST-OP/POST-PROCEDURE DIAGNOSIS: Same as Preop SIGNATURE: Misbah Landis PA-C PATIENT NAME: Alex Almonte DATE: January 12, 2022 TIME: 10:42 AM documented in this encounterKettering Health [facility] Center11-22-2022 Nurse Note* Laxmi Archibald RN - 01/06/2022 1:55 PM EST Pre-procedure instructions: Contacted patient's sister, Munira Brothers and nurse at [facility], Jada ([phone]) andconfirmed appt. for Gerhard removal scheduled on 01/12/22, at [facility]. If instructions are not followed your [...] signed. Arrival at 9:30am to desk QB-1 ([facility]) and check in for your procedure. Battery Tester/Transportation: How will you be arriving for your procedure? Ambulance service. To be arranged by [facility]. If you develop any of the following symptoms before your procedure, please call [phone]. Chills, joint pain, rash, sore throat, cough, loss of smell, reddened eyes, vomiting, abdominal pains, diarrhea, loss of taste, severe headache, weakness, bruising or bleeding, fever, muscle pain, shortness of breath Recovery expectations: You can expect to be in recovery for 30 minutes following the procedure. Written instructions provided to patient via eOriginalt If you have any questions please call [phone] documented in this encounterKettering Health [facility] Center11-15-2022 Progress note Author Sadia Aguilar [facility] December 30, 2021 1:49pm Note Date/Time December 30, 2021 1:49pm [facility] [address] [place] [address] Wound Center Provider Note Signed Patient: Alex Almonte MR#: [id number] : 1945 Acct:[id number] Age/Sex: 76 / M Copies to: DO Sadia Whyte APRN~ HPI Date of Visit Date of Visit: Date of Service: 12/30/2021 Time of Service: 13:44 Narrative HPI: 12/30/21 Alex is a 76 year old male presenting to [facility] wound care for aninitial visit for eval and treatment of a sacral/coccyx area pressure ulcer. He resides at [facility]. There is an CLINICAL OUTCOMES MANAGER present for the visit. Medicalhoney gel will [...] start?: 4 weeks ago Mode of Arrival/ Cement Sprayer Helper: Facility vehicle Assistive Device Used Today: Wheelchair and Indra Lives with:: Care/Nursing Facility Appetite Description: Within Normal Limits Who helps w/ dressing change?: Nursing Facility Why Do You Need Help?: Can't Reach Ulcer, Limited mobility and Taxing effort to leave home Smoking Status: Former smoker [facility] Medical History (Updated 12/30/21 @ 13:49 [...] 0.1 CM Sq: 38.500 Surrounding Tissue Appearance: [place] and Hyperpigmented Surrounding Tissue Temp: Warm Drainage [...] By: <Electronically signed by DAVID Aguilar> 12/30/[address] [facility] Work Phone: 1(405) 128-452211-15-2022 History of Present illness Narrative* Paresh Fonseca [...] the rehab facility He is currently at [facility] in [facility] Seen on video together with Zoe -history obtained from bedside nursing. he is getting up in a chair, working with PT diet is back to regular hes doing well. much improved since admission to 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 has scabs on the R lateral side but no wound care concerns. It continues to heal. He has a follow-up with vascular surgery later December 2021. has a sacral wound -- he has local wound care following this at [facility] WBC 6.0, creatinine -- 0.8. alt 12 [...] by mouth. Take one (1) tablet M-W- tacrolimus IR (PROGRAF) 1 mg capsule Take [...] by mouth daily with lunch. Magic Cup [place] with lunch aspirin, enteric coated (ASPIRIN, ENTERIC [...] is a 76 year old male from [facility]. Here today for copat follow-up for vancomycin x4 weeks for MRSA bacteremia He was transferred from [facility] on 11/28/2021 for further surgical management of infected right heel He has a past medical history of kidney transplant in 2001, left [facility] from previously infected foot ulcers and multiple foot surgeries. History of PAD CAD status post CABG, diabetes, atrial fibrillatioN He originally presented [facility] for having altered mental status and [...] 3. Status post right heel I&D at [facility] on 11/24/2021. 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 4. CKD - s/p gerhard placement 5. immunocompromised Status post right open above the ankle [id number] - Enterobacter and MRSA from cultures Gram-positive [...] will need to coordinate with his SNF [phone] --our ID office will need to arrange for IR gerhard removal. Return to ID as needed 10 Minutes spent via virtual visit. 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 Thanks, Sulma Pardo Hydro Plant Operator documented in this encounterKettering [facility]10-31-2022 Miscellaneous Notes* Telephone Encounter - Gwen Alfredo Adm Asst I - 12/15/2021 4:11 PM EDT Rupa LYLES from [facility] [phone] called to report IV Vancomycin was started until today. Patient missed 3 days, should patient makeup missed doses? Please advise. Gwen Alfredo Adm Asst I documented in this encounterKettering [facility]10-21-2022 Instructions* Patient Instructions* Paresh Fonseca [...] serious illness Are taking any medications (prescription, dwxh-rvn-lnqovdt, vitamins, or herbal products) How will I receive EVUSHELD? EVUSHELD consists of two investigational medicines, tixagevimab and cilgavimab. You will receive 1 dose of EVUSHELD, consisting of 2 separate injections (tixagevimab and cilgavimab). EVUSHELD will be given to you by your healthcare provider as 2 intramuscular injections, given one after the other. Viruses can foreign exchange trader time (mutate) and develop into a slightly [...] caused by certain SARS-CoV-2 variants: Viruses can foreign exchange trader time (mutate) and develop into a slightly [...] treatment or prevention of COVID-19 go to https://www.fda.gov/ckvrdbfia-iikmebudrtpz-ods- response/ddp-qbvqp-vngbmuzuge-zhd-ofqgyb-qhvfgoxwf/jxtzbexpv-cin-atehuazequnzr for more information. It is your choice [...] to FDA MedWatch at www.fda.gov/medwatch or call 1-107-SEI-1088 or call [employer] . Additional Information If you have questions, visit the website or call the telephone number provided below. Website Telephone number http://www.QualySense How can I learn more about COVID-19? Ask your healthcare provider. Visit https://www.cdc.gov/COVID19 Contact your local or state public health department. What is an Emergency Use Authorization? The [place] FDA has made EVUSHELD (tixagevimab co-packaged with cilgavimab) available under an emergency access mechanism called an Emergency Use Authorization EUA. The EUA is supported by a [place] of Health and Human Service ([facility]) declaration that circumstances exist to justify [...] monohydrate, polysorbate 80, sucrose, water. Distributed by: [employer], [place], [place] Manufactured for: [employer] [place], [place] [employer] 2021. All rightsreserved. documented in this encounterKettering Health [facility] Center10-21-2022 Miscellaneous Notes* Telephone Encounter - Paresh Fonseca MD - 12/05/2021 3:05 PM EDT Evusheld (tixagevimab/cilgavimab) Eligibility and Patient Discussion The patient agrees to receive Evusheld (tixagevimab 300 mg and cilgavimab 300 mg) at [place]. The patient verbalized understanding of repeating a COVID test 72 hours prior to the injections. called up patient in response to her [employer] message today she tested covid negative on a rapid test on Wednesday this week Discussed evushed fact sheet and she agrees to proceed she will retest again today to be scheduled for Friday 12/[facility] at [facility] Paresh Fonseca MD documented in this encounterKettering Health [facility] Center10-03-2022 Instructions* Patient Instructions* No Reeder DO - 11/17/2021 4:26 PM EDT -- continue coumadin -- will get vascular ultrasound for vein and artery of your right leg -- will have you see my interventional cardiology partner regarding your peripheral artery disease and if your artery disease is impairing your wound healing for the leg ulcer documented in this encounterKettering Health [facility] Center10-03-2022 History of Present illness Narrative* No Reeder DO - 11/17/2021 3:53 PM EDT Images from the original note were not included. Heart and V[facility] [address] [facility] Department of Cardiovascular Medicine SECTION [...] by mouth. Take one (1) tablet M-W- latanoprost(XALATAN 0.005 % EYE DROPS) Use 1 [...] DVT scan. Leg elevation. No Reeder DO, [facility] Vascular Medicine documented in this encounter[address]16-2022 History of Past illness Narrative* Problem Noted Date Resolved Date Altered tissue perfusion 022 documented as of this encounter (statuses as of 09/30/2021) [address]16-2022 History of Past illness Narrative* Problem Noted Date Resolved Date Altered tissue perfusion documented as of this encounter (statuses as of 10/09/2021) [address]16-2022 History of Past illness Narrative* Problem Noted Date Resolved Date Altered tissue perfusion documented as of this encounter (statuses as of 11/18/2021) [address]16-2022 History of Past illness Narrative* Problem Noted Date Resolved Date Altered tissue perfusion documented as of this encounter (statuses as of 12/01/2021) [address]16-2022 History of Past illness Narrative* Problem Noted Date Resolved Date Altered tissue perfusion documented as of this encounter (statuses as of 12/05/2021) [address]16-2022 History of Past illness Narrative* Problem Noted Date Resolved Date Altered tissue perfusion 022 documented as of this encounter (statuses as of 12/08/2021) [address]16-2022 History of Past illness Narrative* Problem Noted Date Resolved Date Altered tissue perfusion 022 documented as of this encounter (statuses as of 12/08/2021) [address]16-2022 History of Past illness Narrative* Problem Noted Date Resolved Date Altered tissue perfusion 2 022 documented as of this encounter (statuses as of 12/12/2021) [address]16-2022 History of Past illness Narrative* Problem Noted Date Resolved Date Altered tissue perfusion 09/30/2 022 documented as of this encounter (statuses as of 12/15/2021) [address]16-2022 History of Past illness Narrative* Problem Noted Date Resolved Date Altered tissue perfusion 09/30/2 022 documented as of this encounter (statuses as of 12/16/2021) [address]16-2022 History of Past illness Narrative* Problem Noted Date Resolved Date Altered tissue perfusion 08/16/2 022 documented as of this encounter (statuses as of 12/31/2021) [address]16-2022 History of Past illness Narrative* Problem Noted Date Resolved Date Altered tissue perfusion 16/2 022 documented as of this encounter (statuses as of 01/13/2022) [address]16-2022 History of Past illness Narrative* Problem Noted Date Resolved Date Altered tissue perfusion 16/2 022 documented as of this encounter (statuses as of 01/20/2022) [address]16-2022 History of Past illness Narrative* Problem Noted Date Resolved Date Altered tissue perfusion 16/2 022 documented as of this encounter (statuses as of 02/06/2022) [address]16-2022 History of Past illness Narrative* Problem Noted Date Resolved Date Altered tissue perfusion 16/2 022 documented as of this encounter (statuses as of 02/20/2022) [address]16-2022 History of Past illness Narrative* Problem Noted Date Resolved Date Altered tissue perfusion 16/2 022 documented as of this encounter (statuses as of 02/26/2022) [address]16-2022 History of Past illness Narrative* Problem Noted Date Resolved Date Altered tissue perfusion 16/2 022 documented as of this encounter (statuses as of 02/27/2022) [address]16-2022 History of Past illness Narrative* Problem Noted Date Resolved Date Altered tissue perfusion 16/2 022 documented as of this encounter (statuses as of 03/21/2022) [address]16-2022 History of Past illness Narrative* Problem Noted Date Resolved Date Altered tissue perfusion 16/2 022 documented as of this encounter (statuses as of 03/30/2022) [address]16-2022 History of Past illness Narrative* Problem Noted Date Resolved Date Altered tissue perfusion /16/2 022 documented as of this encounter (statuses as of 04/06/2022) [address]16-2022 History of Past illness Narrative* Problem Noted Date Resolved Date Altered tissue perfusion /16/2 022 documented as of this encounter (statuses as of 05/13/2022) [address]16-2022 History of Past illness Narrative* Problem Noted Date Diagnosed Date Resolved Date Altered tissue perfusion documented as of this encounter (statuses as of 2022) [facility] History of Past illness Narrative* Problem Noted Date Diagnosed Date Resolved Date Altered tissue perfusion documented as of this encounter (statuses as of 10/29/2022) [facility] Miscellaneous Notes* Telephone Encounter - [...] to pharmacy. Katina Duque documented in this encounterKettering Health [facility] Center05-31-2022 Miscellaneous Notes* Telephone Encounter - [...] and advise. Rosibel Daniel documented in this encounterKettering Health [facility] Center04-21-2022 Miscellaneous Notes* Telephone Encounter - Van Olivarez APRN.CNP - 06/05/2021 4:46 PM EDT Spoke with pt regarding latest results, scr. at baseline. TAC level 8.6 prev two levels in 5 range.He believes latest level would be 12hr trough. No changes for now, if next level >7, can consider if reduction appropriate. He understands. Van Olivarez APRN.CNP [facility]* Diagnosis Screening for genitourinary condition Screening for other and unspecified genitourinary condition documented [facility]* Diagnosis Acute deep vein thrombosis (DVT) of proximal end of right lower extremity ([facility])- Primary PAD (peripheral artery disease) ([facility]) Peripheral vascular disease, unspecified Nonhealing ulcer of heel ([facility]) Anticoagulation management encounter Encounter for therapeutic drug monitoring documented in this [facility]* Diagnosis Encounter for prophylactic measures, unspecified- Primary documented in [facility]* Diagnosis Kidney replaced by transplant- Primary documented in [facility]* Diagnosis MRSA bacteremia- Primary Bacteremia Diabetic foot ulcer with osteomyelitis ([facility]) Type II or unspecified type diabetes mellitus with other specified manifestations, not stated as uncontrolled ILIANA (acute kidney injury) ([facility]) Acute kidney failure, unspecified documented [facility]* Diagnosis Kidney replaced by transplant- Primary 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 group home current use of immunosuppressive drug [facility]* Diagnosis Hx of BKA, right ([facility])- Primary PAD (peripheral artery disease) ([facility]) Peripheral vascular disease, unspecified Mixed hyperlipidemia due to type 2 diabetes mellitus ([facility]) Type II or unspecified type diabetes mellitus with renal manifestations, uncontrolled(250.42) Type II or unspecified type diabetes mellitus with renal manifestations, uncontrolled Type 2 diabetes mellitus with diabetic neuropathy, with long-term current use of insulin (HCC) Type 2 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, with long-term current use of insulin ([facility]) Paroxysmal atrial fibrillation ([facility]) Atrial fibrillation [facility]* Diagnosis Screening for genitourinary condition Screening for other and unspecified genitourinary condition documented in [facility]* Diagnosis Onset Date Resolution Status At high risk for skin breakdown chronic Diabetes chronic Fecal incontinence chronic Limited mobility chronic Poor appetite chronic Pressure ulcer of sacral region, unstageable chronic Candidiasis resolved [facility] Work Phone: Evaluation noteNo InformationNortPhysicians Care [facility] Other Evaluation note* Diagnosis Kidney replaced by transplant- Primary documented in this encounter [facility]* Diagnosis 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) documented in this encounter [facility] general Narrative - Reported* Type Description Date [...] COLONOSCOPY 1995,2001, 2014 Hospitalization History see above [employer] Other Progress note Author Sadia Aguilar [facility] July 20, 2022 1:48pm Note Date/Time July 20, 2022 1:48p m [facility] [address] [place] [address] Wound Center Provider Note Signed Patient: Alex Almonte MR#: [id number] : 1945 Acct:[id number] Age/Sex: 76 / M Copies to: DO Sadia Whyte APRN~ HPI Date of Visit Date of Visit: Date of Service: 07/20/2022 Time of Service: 13:46 Narrative HPI: 12/30/21 Alex is a 76 year old male presenting to [facility] wound care for aninitial visit for eval and treatment of a sacral/coccyx area pressure ulcer. He resides at [facility]. There is an CLINICAL OUTCOMES MANAGER present for the visit. Medicalhoney gel will [...] his brief that was cleaned by this va underwriter as well as another nursing staff member, [...] from initial visit here Mode of Arrival/ Cement Sprayer Helper: Facility vehicle Assistive Device Used Today: Wheelchair and Indra Lives with:: Care/Nursing Facility Appetite Description: Within Normal Limits Who helps w/ dressing change?: Nursing Facility Why Do You Need Help?: Can't Reach Ulcer, Limited mobility and Taxing effort to leave home Smoking Status: Former smoker [facility] Medical History (Updated 03/03/22 @ 14:41 [...] <Electronically signed by DAVID Aguilar> 07/20/22 134[address] [facility] Work Phone: Reason for referral (narrative)* Outpatient Procedure (Routine) - Authorized Specialty Diagnoses / Procedures Referred By Contac t Referred To Contact [facility] [place] Diagnoses PAD (peripheral artery disease) (HCC) Nonhealing ulcer of heel (HCC) Procedures US LEG ARTERIAL PERIPH UNL VAS LAB DUP-SCAN LXTR ART/ARTL BPGS UNI/LMTD STUDY No Reeder DO [address] [place] [address] [facility] [place] [address] Referral ID Status Reason Start Date Expiration Date Visits Requested Visits Authorized [id number] Authorized Auto-Generat ed Referral 11/17/2021 11/17/2022 1 1 * Outpatient Procedure (Routine) - Authorized Specialty Diagnoses / Procedures Referred By Contac t Referred To Contact [facility] Diagnoses Acute deep vein thrombosis (DVT) of proximal end of right lower extremity (HCC) Procedures US LEG VEIN DVT UNL VAS LAB DUP-SCAN XTR VEINS UNILATERAL/LIMITED STUDY No Reeder DO [address] [place] [address] [place] [address] Referral ID Status Reason Start Date Expiration Date Visits Requested Visits Authorized [id number] Authorized Auto-Generat ed Referral 11/17/2021 11/17/2022 1 1 * Consult, Test, Treat (Routine) - Authorized Specialty Diagnoses / Procedures Referred By Contac t Referred To Contact Cardiology Diagnoses PAD (peripheral artery disease) (HCC) Nonhealing ulcer of heel (HCC) Procedures CONSULT TO CARDIOLOGY OFFICE/OUTPATIENT [facility] HIGH MDM 60-74 MINUTES Savanah Marcelo MD [address] [place] [address] Referral ID Status Reason Start Date Expiration Date Visits Requested Visits Authorized [id number] Authorized PCP Requested Referral 11/17/2021 11/17/2022 1 1 [facility] Summary Purpose Family History No Family History Records Found Relationship Condition Age at Onset Recorded Date/T kartik father Aneurysm Unknown father Parkinson's disease Unknown Advance Directives No Advanced Directives Records FoundDocuments on File Type Date Recorded Patient Medical Information Officer Expl anation Advance Directive(s) Latest Code Status [...] Full Code Order Discussed With: Patient and Leny uribe Decision Maker Surrogate Decision Maker Name: Munira Brothers Surrogate Decision Maker Surrogate Decision Maker Relationship: M ajority of Adult Siblings (promotions representative) DNR-CCA 09/26/2021 11:56 AM 10/01/2021 2:18 [...] Decision Maker Relationship: Majority of Adult Siblings (promotions representative) Code Status History Code Status Date [...] Reason for Visit Chief Complaint Open Wound ([facility]) Reason for Visit At high risk [...] and content) DATE CREATED AUTHOR 02/20/2021 [employer] [facility] DATE CREATED AUTHOR AUTHOR'S ORGANIZ ATION 07/25/2022 [facility] DATE CREATED AUTHOR AUTHOR'S ORGANIZ ATION 08/16/2022 [facility] DATE CREATED AUTHOR AUTHOR'S ORGANIZ ATION 09/17/2022 [facility] DATE CREATED AUTHOR AUTHOR'S ORGANIZ ATION 01/14/2023 [facility] DATE CREATED AUTHOR AUTHOR'S ORGANLUPE ATION 03/20/2023 [facility] EP[employer] Source Comments (unrecognize d section and content) In the event this informatio n is protected by the Federal Confidentiality of Alcohol and Drug Abuse Patient Records regulations: The Federal rules restrict any use of the information to criminally investigate or prosecute any alcohol or drug abuse patient.[facility] CenterIn the event this information is protected by the Federal Confidentiality of Alcohol and Drug Abuse Patient Records regulations: The Federal rules restrict any use of the information to criminally investigate or prosecute any alcohol or drug abuse patient.[facility] CenterIn the event this information is protected by the Federal Confidentiality of Alcohol and Drug Abuse Patient Records regulations: The Federal rules restrict any use of the information to criminally investigate or prosecute any alcohol or drug abuse patient.[facility] CenterIn the event this information is protected by the Federal Confidentiality of Alcohol and Drug Abuse Patient Records regulations: The Federal rules restrict any use of the information to criminally investigate or prosecute any alcohol or drug abuse patient.[facility] CenterIn the event this information is protected by the Federal Confidentiality of Alcohol and Drug Abuse Patient Records regulations: The Federal rules restrict any use of the information to criminally investigate or prosecute any alcohol or drug abuse patient.[facility] CenterIn the event this information is protected by the Federal Confidentiality of Alcohol and Drug Abuse Patient Records regulations: The Federal rules restrict any use of the information to criminally investigate or prosecute any alcohol or drug abuse patient.[facility] CenterIn the event this information is protected by the Federal Confidentiality of Alcohol and Drug Abuse Patient Records regulations: The Federal rules restrict any use of the information to criminally investigate or prosecute any alcohol or drug abuse patient.[facility] CenterIn the event this information is protected by the Federal Confidentiality of Alcohol and Drug Abuse Patient Records regulations: The Federal rules restrict any use of the information to criminally investigate or prosecute any alcohol or drug abuse patient.[facility] CenterIn the event this information is protected by the Federal Confidentiality of Alcohol and Drug Abuse Patient Records regulations: The Federal rules restrict any use of the information to criminally investigate or prosecute any alcohol or drug abuse patient.[facility] CenterIn the event this information is protected by the Federal Confidentiality of Alcohol and Drug Abuse Patient Records regulations: The Federal rules restrict any use of the information to criminally investigate or prosecute any alcohol or drug abuse patient.[facility] CenterIn the event this information is protected by the Federal Confidentiality of Alcohol and Drug Abuse Patient Records regulations: The Federal rules restrict any use of the information to criminally investigate or prosecute any alcohol or drug abuse patient.[facility] CenterIn the event this information is protected by the Federal Confidentiality of Alcohol and Drug Abuse Patient Records regulations: The Federal rules restrict any use of the information to criminally investigate or prosecute any alcohol or drug abuse patient.[facility] CenterIn the event this information is protected by the Federal Confidentiality of Alcohol and Drug Abuse Patient Records regulations: The Federal rules restrict any use of the information to criminally investigate or prosecute any alcohol or drug abuse patient.[facility] CenterIn the event this information is protected by the Federal Confidentiality of Alcohol and Drug Abuse Patient Records regulations: The Federal rules restrict any use of the information to criminally investigate or prosecute any alcohol or drug abuse patient.[facility] CenterIn the event this information is protected by the Federal Confidentiality of Alcohol and Drug Abuse Patient Records regulations: The Federal rules restrict any use of the information to criminally investigate or prosecute any alcohol or drug abuse patient.[facility] CenterIn the event this information is protected by the Federal Confidentiality of Alcohol and Drug Abuse Patient Records regulations: The Federal rules restrict any use of the information to criminally investigate or prosecute any alcohol or drug abuse patient.[facility] CenterIn the event this information is protected by the Federal Confidentiality of Alcohol and Drug Abuse Patient Records regulations: The Federal rules restrict any use of the information to criminally investigate or prosecute any alcohol or drug abuse patient.[facility] CenterIn the event this information is protected by the Federal Confidentiality of Alcohol and Drug Abuse Patient Records regulations: The Federal rules restrict any use of the information to criminally investigate or prosecute any alcohol or drug abuse patient.[facility] CenterIn the event this information is protected by the Federal Confidentiality of Alcohol and Drug Abuse Patient Records regulations: The Federal rules restrict any use of the information to criminally investigate or prosecute any alcohol or drug abuse patient.[facility] CenterIn the event this information is protected by the Federal Confidentiality of Alcohol and Drug Abuse Patient Records regulations: The Federal rules restrict any use of the information to criminally investigate or prosecute any alcohol or drug abuse patient.[facility] CenterIn the event this information is protected by the Federal Confidentiality of Alcohol and Drug Abuse Patient Records regulations: The Federal rules restrict any use of the information to criminally investigate or prosecute any alcohol or drug abuse patient.[facility] CenterIn the event this information is protected by the Federal Confidentiality of Alcohol and Drug Abuse Patient Records regulations: The Federal rules restrict any use of the information to criminally investigate or prosecute any alcohol or drug abuse patient.[facility] Center[facility] the event this information is protected by the Federal Confidentiality of Alcohol and Drug Abuse Patient Records regulations: The Federal rules restrict any use of the information to criminally investigate or prosecute any alcohol or drug abuse patient.[facility] Center[facility] the event this information is protected by the Federal Confidentiality of Alcohol and Drug Abuse Patient Records regulations: The Federal rules restrict any use of the information to criminally investigate or prosecute any alcohol or drug abuse patient.[facility] Center[facility] the event this information is protected by the Federal Confidentiality of Alcohol and Drug Abuse Patient Records regulations: The Federal rules restrict any use of the information to criminally investigate or prosecute any alcohol or drug abuse patient.[facility] Center[facility] the event this information is protected by the Federal Confidentiality of Alcohol and Drug Abuse Patient Records regulations: The Federal rules restrict any use of the information to criminally investigate or prosecute any alcohol or drug abuse patient.[facility] Reason for Visit (unrecogniz ed section and content) Reason Comments Results Reason Comments Refill Request [...] Request 02/18/2022 Reason Comments Med Change Request Reason Comments Diabetes Care Teams (unrecognized sec tion and content) [employer] Relationship Specialty Start Date End Date Devon Moreira, DO [address] [place] [address] PCP - General 05/27/00 [employer] Relationship Specialty Start Date End Date Devon Moreira, DO [address] [place] [address] PCP - General 05/27/00 [employer] Relationship Specialty Start Date End Date Devon Moreira, DO [address] [place] [address] PCP - General 05/27/00 [employer] Relationship Specialty Start Date End Date Devon Moreira, DO [address] [place] [address] PCP - General 05/27/00 [employer] Relationship Specialty Start Date End Date Devon Moreira, DO [address] [place] [address] PCP - General 05/27/00 [employer] Relationship Specialty Start Date End Date Devon Moreira, DO [address] [place] [address] PCP - General 05/27/00 [employer] Relationship Specialty Start Date End Date Devon Moreira, DO [address] [place] [address] PCP - General 05/27/00 [employer] Relationship Specialty Start Date End Date Devon Moreira, DO [address] [place] [address] PCP - General 05/27/00 [employer] Relationship Specialty Start Date End Date Devon Moreira, DO [address] [place] [address] PCP - General 05/27/00 [employer] Relationship Specialty Start Date End Date Devon Moreira, DO [address] [place] [address] PCP - General 05/27/00 [employer] Relationship Specialty Start Date End Date Devon Moreira, DO [address] [place] [address] PCP - General 05/27/00 [employer] Relationship Specialty Start Date End Date Devon Moreira, DO [address] [place] [address] PCP - General 05/27/00 [employer] Relationship Specialty Start Date End Date Devon Moreira, DO [address] [place] [address] PCP - General 05/27/00 [employer] Relationship Specialty Start Date End Date Devon Moreira, DO [address] [place] [address] PCP - General 05/27/00 [employer] Relationship Specialty Start Date End Date Devon Moreira, DO [address] [place] [address] PCP - General 05/27/00 [employer] Relationship Specialty Start Date End Date Devon Moreira, DO [address] [place] [address] PCP - General 05/27/00 [employer] Relationship Specialty Start Date End Date Devon Moreira, DO [address] [place] [address] PCP - General 05/27/00 [employer] Relationship Specialty Start Date End Date Devon Moreira, DO [address] [place] [address] PCP - General 05/27/00 [employer] Relationship Specialty Start Date End Date Devon Moreira DO [address] [place] [address] PCP - General 05/27/00 Team Status: Active Member Role Status Dates Devon Moreira DO Primary Care Provider Active Team Status: Inactive Member Role Status Dates Devon Moreira DO Primary Care Provider Active Sadia Aguilar APRN Attending Provider Active [employer] Relationship Specialty Start Date End Date Devon Moreira DO [address] [place] [address] PCP - General 05/27/00 [employer] Relationship Specialty Start Date End Date Devon Moreira DO [address] [place] [address] PCP - General 05/27/00 [employer] Relationship Specialty Start Date End Date Ni Cabrera, [address] [facility] [address] [place] [address] PCP - ACO Reach 07/09/22 Devon Moreira MD [address] [place] [id number] PCP - General Internal Medicine 07/14/22 PRN Active and Recently Administ ered Medications (unrecognized section and content) Medication Order 01/10/2022 01/11/2022 01/12/2022 lidocaine (PF) 10 mg/mL (1 %) injection (XYLOCAINE) SUBCUTANEOUS, X (OR/PROCEDURE) PRN, Starting on Wed01/12/22 at 1032, Until Wed01/13/22 at 0303, Intraprocedure 1032 (Given - Provid er: Vani Hdz APRN.HUMAN RESOURCES TECHNICIAN) Goals (unrecognized section and content) Goals may [...] BE BASED ON THE PRIMARY CLINICAL RECORDS. [facility] [employer] [facility]. provides no warranty or guarantee of the accuracy or completeness of information in this document.
[2023-03-24 08:01] LABS: Basophils Percent Auto 0.5 % (0.2-2.0); Eosinophils Absolute Auto 0.2 10^3/uL (0.0-0.7); Eosinophils Percent Auto 2.9 % (0.9-7.0); Hematocrit 32.6 % (42.0-54.0); Hemoglobin 10.3 g/dL (14.0-18.0); Immature Granulocytes Abs Auto 0.02 10^3/uL (0.00-0.03); Immature Granulocytes Pct Auto 0.3 % (0.0-0.5); Lymphocytes Absolute Auto 2.2 10^3/uL (1.2-3.8); Lymphocytes Percent Auto 29.1 % (20.5-60.0); Mean Corpuscular HGB Conc 31.6 g/dL (29.9-35.2); Mean Corpuscular Hemoglobin 27.3 pg (25.9-34.0); Mean Corpuscular Volume 86.5 fL (80.0-94.0); Mean Platelet Volume 11.1 fL (9.5-13.5); Monocytes Absolute Auto 0.9 10^3/uL (0.3-0.8); Monocytes Percent Auto 12.3 % (1.7-12.0); Neutrophils Absolute Auto 4.2 10^3/uL (1.4-6.5); Neutrophils Percent Auto 54.9 % (43.0-75.0); Platelet Count 214 10^3/uL (150-450); Red Blood Count 3.77 10^6/uL (4.70-6.10); Red Cell Distribution Width 16.1 % (11.0-15.0); White Blood Count 7.6 10^3/uL (4.0-11.0)
[2023-03-24 08:04] LABS: INR 2.43; Prothrombin Time 24.5 sec (9.0-11.6)
[2023-03-24 08:36] LABS: Alanine Aminotransferase 14 U/L (16-63); Albumin Globulin Ratio 0.7; Albumin Level 2.4 g/dL (3.4-5.0); Alkaline Phosphatase 71 U/L (46-116); Anion Gap 8.9; Aspartate Amino Transferase 17 U/L (15-37); BUN Creatinine Ratio 28.5; Bilirubin Total 0.5 mg/dL (0.2-1.0); Calcium 8.2 mg/dL (8.5-10.1); Carbon Dioxide 30.3 mmol/L (21.0-32.0); Chloride 102 mmol/L (98-107); Estimated GFR (African America 54 (>=60); Estimated GFR (Non-African Ame 45 (>=60); Globulin 3.5 g/dL; Glucose 312 mg/dL (74-106); Magnesium 1.8 mg/dL (1.8-2.4); Phosphorus 4.2 mg/dL (2.6-4.7); Potassium 4.2 mmol/L (3.5-5.1); Sodium 137 mmol/L (136-145); Total Protein 5.9 g/dL (6.4-8.2)
--- OUTSIDE RECORDS SUMMARY | 2023-03-25 08:17 | XMS_ITS | CCD ---
Author Name Unknown Address [id number] [place] [address] Organization [facility] Care Team Providers Care Licensing Services Clerk Name Role Phone PROVIDER, UNKNOWN Attending Unavailable [...] TAM Primary Care Unavailable CYN, DR TONYA Manzo [...] Unavailable BALL, DR TAM Primary Care Unavailable SHAIKH Kate [...] BALL, DR TAM Attending Unavailable BALL, DR TMA Consulting Unavailable BALL, DR TAM Admitting Unavailable [...] BALL, DR TAM Primary Care Unavailable HIGHLANDER, ASHLYE Cortes Consulting Unavailable MISC, DR RYDER Admitting [...] Unavailable DO Devon Moreira Primary Care Provider DAVID Aguilar Attending Provider Sadia Aguilar Attending Unavailable Sadia Aguilar Admitting Unavailable Devon Moreira Primary Care Unavailable SARTHAK PARNELL Attending Unavailable MILAGRO QUEEN Referring Unavailable MILAGRO QUEEN Referring Unavailable DEVON MOREIRA Referring Unavailable HINA PETERSON Attending Unavailable DEVON MOREIRA Primary Care Unavailable ARTUR CHEN Referring Unavailable DEVON MOREIRA Primary Care Unavailable Ni Cabrera DO Unavailable Devon Moreira MD Primary Care Provider NI CABRERA Attending Unavailable DEVON MOREIRA Referring Unavailable Allergies Allergy Classification Reported Allergen(s) Allergy Type Date of Onset Reaction(s) Facility (20 sources) Pyridostigmine; Translations: [PYRIDOSTIGMINE BROMIDE] Drug Allergy 2 GI Upset [facility] Work Phone: (1 source) ALLERGIES NOT ON FILE; Translations: [ALLERGIES NOT ON FILE] Propensity to adverse reactions (disorder) [facility] Repository (1 source) Pyridostigmine Drug Allergy 2 [...] Indications: Type 1 diabetes mellitus with nephropathy ([facility]) 3 units breakfast, 5 units lunch, 8 [...] 10 units and notify provider [facility] [phone] MG (5 sources) take 155-852 tablets by mouth twice daily [facility] [place] [phone] MG 1 tablet Orally twice daily Active take 155-852 tablets by mouth four times daily take 155-852 tablets by mouth four times daily [facility] 155-852-130 MG 1 tablet Orally Four times [...] needed. docusate sodium 50 mg / sennosides, shelter 8.6 mg oral tablet (20 sources) Start: [...] by mouth daily with lunch. Magic Cup [place] with lunch 7110 mL 0 12/11/2021 Active Comment on above: Take 237 mL by mouth daily with lunch. Magic Cup [place] with lunch polyethylene glycol 3350 42635 mg powder for oral solution (20 sources) [...] Comment on above: TAKE 1 TABLET BY [facility] DAILY AT BEDTIME. tacrolimus 1 mg oral [...] Active Start: 01-23-2019 take 1 capsule by [facility] twice daily tacrolimus IR (PROGRAF) 1 mg capsule Take 1 capsule by mouth twice daily. 180 capsule 3 10/09/2021 Suspended Comment on above: TAKE 1 CAPSULE BY MO UT TWICE A DAY*Z94.0* Take 1 capsule by mo [facility] twice daily. Take 2 capsules by m [...] Coronary arteriosclerosis; Translations: [Atherosclerotic heart disease of [place] coronary artery without angina pectoris] Onset: 7 [...] current use of immunosuppressive drug; Translations: [Other termination clerk (current) drug therapy] Episodic Other aftercare (12 sources) Long-term current use of insulin; Translations: [bed bug exterminator (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 of insulin] Episodic Other aftercare (10 sources) bed bug exterminator (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 of insulin; Translations: [CUSTODIAL CURRENT USE OF INSULIN] Onset: 2 Episodic Other aftercare (5 sources) skilled nursing (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 of anticoagulants; Translations: [EMD SPECIAL EDUCATION TEACHER CURRNT USE ANTICOAGULANTS] Onset: 3 Episodic Other [...] 07-30-2006 Episodic Other aftercare (2 sources) Other skilled nursing (current) drug therapy; Translations: [OTH CUSTODIAL CURRENT DRUG THERAPY] Onset: 02-05-2022 Episodic Other aftercare (4 sources) Encounter for orthopedic aftercare following surgical amputation; Translations: [ENC ORTHOPED AFTERCARE FLW SURG AMP] Onset: 02-05-2022 Episodic Other aftercare (4 sources) skilled nursing (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 of antibiotics; Translations: [CUSTODIAL CURRENT USE ANTIBIOTICS] Onset: 12-20-2021 Episodic Other aftercare (1 source) skilled nursing (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 of aspirin; Translations: [EMD SPECIAL EDUCATION TEACHER CURRENT USE OF ASPIRIN] Onset: 01-19-2022 Episodic [...] Interpretation and review of laboratory results Normal [facility] POCT glycosylated hemoglobin (Hb A1C) docked deviceon 03-18-2023 HbA1c (Bld) [Mass fraction] 7.8 % [facility] [place]oya 12-25-2022 DIAMANTEN Telephone (TXCTGL) ALEX ALMONTE ([id number]) 1945 M Date Time Provider Department 12/25/22 KIDNEY TXP COORDINATORS TXCTGL During your visit today, we recorded the following information about you: Duane Ryan 12/25/2022 10:41 AM Signed Labs 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 Administrative Psychology Tech Allergies As of Date: 12/25/2022 Noted Allergy [...] by mouth daily with lunch. 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 Magic Cup [place] with lunch aspirin, enteric coated (ASPIRIN, ENTERIC [...] in am? thanks! RF Pts RN at [facility] reports pts sister picks up Rx [...] Apply 0. (more content not included)... Normal [facility] Office Visiton 09-09-2022 Follow-up visit [id number] Alex Almonte 1945 M Date Provider Department Center 09/09/2022 1596-SARTHAK PARNELL [facility] Family History Problem Relation Age of Onset Cancer Mother Aneurysm Father Cancer Father Parkinsonism Father Family Status - Relation Status Age at Mother Father Level of Service:63408 GA OFFICE/OUTPATIENT ESTABLISHED MOD MDM 30-39 MIN Normal [facility] Glucose Poct Glucometerson 0 07-20-2022 Commemt1 Glu2: Cleaned Meter Normal [facility] Comment on above: Result Comment: PERF ORMED BY: [facility] [address] [place] [address] PATHOLOGIST OSCILLOGRAPH TECHNICIAN JOSE F ELLIOTT M.D. Performed By: #### G LURICO #### Point of Care testing , Glucose [Mass/Vol] 176 mg/dL Normal [facility] Comment on above: Result Comment: [place] Glucose Reference Range is dependent on time and content of last meal. Glucose of more than 200 mg/dL in a nonstressed, ambulatory subject supports the diagnosis of Diabetes Mellitus. Performed By: #### G MADY #### Point of Care testing , FK506 (TACROLIMUS) WHOLE BLO ODon 07-12-2022 Tacrolimus (FK506), Blood 10.9 ng/mL Normal 2.0-20.0 [facility] Comment on above: Result Comment: Trou gh (immediately following transplant) 15.0 . Trough (steady state, 2 weeks or more after transplant): 3.0 - 8.0 . Performed by LC-MS/MS technology. Performed By: #### F K506T ####[facility] A[address] [place], [place] [address]Dr. Farhat Leal CBC AUTO DIFFon 07-10-2022 BASO # 0.0 103/ul Normal 0.0-0.1 [facility] Comment on above: Performed By: #### C BC ####[facility] [address] [place], [place] [address]Dr. Farhat Leal Basophils/100 WBC (Bld) 0.5 % Normal 0.2-2.0 [facility] Comment on above: Performed By: #### C BC ####[facility] [address] [place], [place] [address]Dr. Farhat Leal EO # 0.3 103/ul Normal 0.0-0.7 [facility] Comment on above: Performed By: #### C BC ####[facility] [address]sk[address] [place], [place] [address]Dr. Farhat Leal Eosinophils/100 WBC (Bld) 4.9 % Normal 0.9-7.0 [facility] Comment on above: Performed By: #### C BC ####[facility] Viipwikwug[address] [place], [place] [address]Dr. Farhat Leal Erythrocyte distribution width (RBC) [Ratio] 13.8 % Normal 11.0-15.0 [facility] Comment on above: Performed By: #### C BC ####[facility] Wox[address] [place], [place] [address]Dr. Farhat Leal Hematocrit (Bld) [Volume fraction] 36.6 % Critically low 42.0-54.0 [facility] Comment on above: Performed By: #### C BC ####[facility] [address] [place] [id number]. Farhat Leal Hemoglobin (Bld) [Mass/Vol] 12.2 g/dL Critically low 14.0-18.0 [facility] Comment on above: Performed By: #### C BC ####[facility] Zn[address]oeixqs[address] [place] [id number]. Farhat Leal IG # 0.01 10e3/ul Normal 0.00-0.03 [facility] Comment on above: Performed By: #### C BC ####[facility] [address] [place], [place] [address]Dr. Farhat Leal IG % 0.2 % Normal 0.0-0.5 [facility] Comment on above: Performed By: #### C BC ####[facility] [address] [place], [place] [address]Dr. Farhat Leal LYMPH # 2.2 103/ul Normal 1.2-3.8 [facility] Comment on above: Performed By: #### C BC ####[facility] Ek[address] [place], [place] [address]Dr. Farhat Leal Lymphocytes/100 WBC (Bld) 33.9 % Normal 20.5-60.0 [facility] Comment on above: Performed By: #### C BC ####[facility] X[address]wo[address]sl[address] [place], [place] [address]Dr. Farhat Leal MANUAL DIFF REQ NO Normal [facility] Comment on above: Performed By: #### C BC ####[facility] X[address]cmi[address] [place], [place] [address]Dr. Farhat Leal MCH (RBC) [Entitic mass] 31.0 pg Normal 25.9-34.0 [facility] Comment on above: Performed By: #### C BC ####[facility] R[address]zsicx[address] [place], [place] [address]Dr. Farhat Leal MCHC (RBC) [Mass/Vol] 33.3 g/dL Normal 29.9-35.2 [facility] Comment on above: Performed By: #### C BC ####[facility] [address] [place] [id number]. Farhat Leal MCV (RBC) [Entitic vol] 93.1 fL Normal 80.0-94.0 [facility] Comment on above: Performed By: #### C BC ####[facility] Ek[address]uyfy[address] [place] [id number]. Farhat Leal MONO # 0.7 103/ul Normal 0.3-0.8 [facility] Comment on above: Performed By: #### C BC ####[facility] Zplcmdxuvu[address] [place] [id number]. Farhat Leal Monocytes/100 WBC (Bld) 10.8 % Normal 1.7-12.0 [facility] Comment on above: Performed By: #### C BC ####[facility] C[address]ue[address]zosb[address] [place] [phone]. Farhat Leal NEUT # 3.2 103/ul Normal 1.4-6.5 [facility] Comment on above: Performed By: #### C BC ####[facility] Feipyshhge[address] [place] [phone]. Farhat Leal Neutrophils/100 WBC (Bld) 49.7 % Normal 43.0-75.0 [facility] Comment on above: Performed By: #### C BC ####[facility] Hdogpesfsj[address] [place] [phone]. Farhat Leal Platelet mean volume (Bld) [Entitic vol] 10.9 fL Normal 9.5-13.5 [facility] Comment on above: Performed By: #### C BC ####[facility] C[address]awc[address] [place] [phone]. Farhat Leal PLT 195 103/ul Normal 150-450 [facility] Comment on above: Performed By: #### C BC ####[facility] Ayiyoborre[address] [place] [phone]. Farhat Leal RBC 3.93 106/ul Critically low 4.70-6.10 [facility] Comment on above: Performed By: #### C BC ####[facility] Rk[address]ygze[address] [place] [phone]. Farhat Leal WBC 6.4 103/ul Normal 4.0-11.0 [facility] Comment on above: Performed By: #### C BC ####[facility] [address] [place] [address]Dr. Farhat Leal MAGNESIUMon 07-10-2022 Magnesium [Mass/Vol] 1.9 mg/dL Normal 1.8-2.4 [facility] Comment on above: Performed By: #### M G, PHOS ####[facility] [address] [place] [address]Dr. Farhat Leal PHOSPHORUSon 07-10-2022 Phosphate [Mass/Vol] 4.7 mg/dL Normal 2.6-4.7 [facility] Comment on above: Performed By: #### M Anais PHOS ####[facility] [address] [place], [place] [address]Dr. Farhat Leal PROF 14(COMP METB)on 023 Albumin [Mass/Vol] 2.7 g/dL Critically low 3.4-5.0 [facility] Comment on above: Performed By: #### C MP ####[facility] So[address]vi[address] [place], [place] [address]Dr. Farhat Leal Albumin/Globulin [Mass ratio] 0.8 {ratio} Normal [facility] Comment on above: Performed By: #### C MP ####[facility] [address]xf[address] [place] [address]Dr. Farhat Leal ALP [Catalytic activity/Vol] 59 U/L Normal 46-116 [facility] Comment on above: Performed By: #### C MP ####[facility] [address] [place] [address]Dr. Farhat Leal ALT [Catalytic activity/Vol] 16 U/L Normal 16-63 [facility] Comment on above: Performed By: #### C MP ####[facility] Du[address] [place] [address]Dr. Farhat Leal Anion gap [Moles/Vol] 12.3 mmol/L Normal [facility] Comment on above: Performed By: #### C MP ####[facility] Njeq[address]apdkj[address] [place] [phone]. Farhat Leal AST [Catalytic activity/Vol] 17 U/L Normal 15-37 [facility] Comment on above: Performed By: #### C MP ####[facility] Soms[address]vdxx[address] [place] [phone]. Farhat Leal Bilirubin [Mass/Vol] 0.5 mg/dL Normal 0.2-1.0 [facility] Comment on above: Performed By: #### C MP ####[facility] Ekvtceejtc[address] [place] [phone]. Farhat Leal Calcium [Mass/Vol] 8.5 mg/dL Normal 8.5-10.1 [facility] Comment on above: Performed By: #### C MP ####[facility] [address] [place], [place] [address]Dr. Farhat Leal Chloride [Moles/Vol] 104 mmol/L Normal 98-107 [facility] Comment on above: Performed By: #### C MP ####[facility] Isc[address]jbafx[address] [place] [phone]. Farhat Leal CO2 [Moles/Vol] 27.6 mmol/L Normal 21.0-32.0 [facility] Comment on above: Performed By: #### C MP ####[facility] Jqbzxdrnnd00[address] [place] [phone]. Farhat Leal Creatinine [Mass/Vol] 1.79 mg/dL Critically high 0.70-1.30 [facility] Comment on above: Performed By: #### C MP ####[facility] Nyizhpejix[address] [place] [phone]. Farhat Elvis EGFR-AF BOLIVIAN 45 mL/min/1.73m2 Critically low >=60 [facility] Comment on above: Performed By: #### C MP ####[facility] Ztz[address]ufqdq[address] [place] [phone]. Farhat Elvis EGFR-NON AF BOLIVIAN 37 mL/min/1.73m2 Critically low >=60 [facility] Comment on above: Performed By: #### C MP ####[facility] Bs[address]mfrvpg[address] [place] [address]Dr. Farhat Leal Globulin (S) [Mass/Vol] 3.2 g/dL Normal [facility] Comment on above: Performed By: #### C MP ####[facility] Rkcbdjmnxi3287 [place] [phone]. Farhat Leal Glucose [Mass/Vol] 203 mg/dL Critically high 74-106 [facility] Comment on above: Performed By: #### C MP ####[facility] [address]wjiuefc[address] [place] [address]Dr. Farhat Leal Potassium [Moles/Vol] 3.9 mmol/L Normal 3.5-5.1 [facility] Comment on above: Performed By: #### C MP ####[facility] [address]kb[address]qt56[address] [place] [address]Dr. Farhat Leal Protein [Mass/Vol] 5.9 g/dL Critically low 6.4-8.2 [facility] Comment on above: Performed By: #### C MP ####[facility] Ooelomspxz[address] [place] [address]Dr. Farhat Leal Sodium [Moles/Vol] 140 mmol/L Normal 136-145 [facility] Comment on above: Performed By: #### C MP ####[facility] Tvs[address]ffoji[address] [place] [address]Dr. Farhat Leal Urea nitrogen [Mass/Vol] 61.0 mg/dL Critically high 7.0-18.0 [facility] Comment on above: Performed By: #### C MP ####[facility] Cwhecnxlys4276 [place] [address]Dr. Farhat Leal Urea nitrogen/Creatinine [Mass ratio] 34.1 mg/mg Normal [facility] Comment on above: Performed By: #### C MP ####[facility] Dmvymxvcbe37[address] [place] [phone]. Farhat Elvis PROTIMEon 07-10-2022 INR Coag (PPP) [Relative time] 2.95 {INR} Normal [facility] Comment on above: Performed By: #### P T ####[facility] Thx[address]ptq[address] [place] [address]Dr. Farhat Leal INR GUIDELINES SEE BELOW Normal [facility] Comment on above: Result Comment: MALINA RED INR: 2.0 - 3.0 CONDITIONS NOT LISTED BELOW 2.5 - 3.5 FOR PROSTHETIC HEART VALVE REPLACEMENT 2.5 - 3.5 RECURRENT THROMBOSIS Performed By: #### P T ####[facility] [address] [place], [place] [address]Dr. Farhat Leal PT Coag (PPP) [Time] 29.4 s Critically high 9.0-11.6 [facility] Comment on above: Performed By: #### P T ####[facility] [address]ns[address] [place], [place] [address]Dr. Farhat Leal FK506 (TACROLIMUS) WHOLE BLO ODon 07-07-2022 Tacrolimus (FK506), Blood 8.3 ng/mL Normal 2.0-20.0 [facility] Comment on above: Result Comment: Trou gh (immediately following transplant) 15.0 . Trough (steady state, 2 weeks or more after transplant): 3.0 - 8.0 . Performed by LC-MS/MS technology. Performed By: #### F K506T ####[facility] [address] [place], [place] [address]Dr. Farhat Leal CBC AUTO DIFFon 07-03-2022 BASO # 0.0 103/ul Normal 0.0-0.1 [facility] Comment on above: Performed By: #### C BC ####[facility] Q[address]xjl[address] [place], [place] [address]Dr. Farhat Leal Basophils/100 WBC (Bld) 0.6 % Normal 0.2-2.0 [facility] Comment on above: Performed By: #### C BC ####[facility] Chns[address]vvmh[address] [place], [place] [address]Dr. Farhat Leal EO # 0.3 103/ul Normal 0.0-0.7 [facility] Comment on above: Performed By: #### C BC ####[facility] Rxdqmbycaa0225 [place] [phone]. Farhat Leal Eosinophils/100 WBC (Bld) 4.1 % Normal 0.9-7.0 [facility] Comment on above: Performed By: #### C BC ####[facility] Oxwrtztblh69[address] [place] [phone]. Farhat Leal Erythrocyte distribution width (RBC) [Ratio] 14.0 % Normal 11.0-15.0 [facility] Comment on above: Performed By: #### C BC ####[facility] Or[address] [place], [place] [address]Dr. Farhat Leal Hematocrit (Bld) [Volume fraction] 35.9 % Critically low 42.0-54.0 [facility] Comment on above: Performed By: #### C BC ####[facility] St[address] [place], [place] [address]Dr. Farhat Leal Hemoglobin (Bld) [Mass/Vol] 12.0 g/dL Critically low 14.0-18.0 [facility] Comment on above: Performed By: #### C BC ####[facility] [address]eq[address] [place], [place] [address]Dr. Farhat Leal IG # 0.04 10e3/ul Critically high 0.00-0.03 [facility] Comment on above: Performed By: #### C BC ####[facility] [address] [place], [place] [address]Dr. Farhat Leal IG % 0.6 % Critically high 0.0-0.5 [facility] Comment on above: Performed By: #### C BC ####[facility] [address] [place], [place] [address]Dr. Farhat Leal LYMPH # 1.5 103/ul Normal 1.2-3.8 [facility] Comment on above: Performed By: #### C BC ####[facility] [address]hrp[address] [place], [place] [address]Dr. Farhat Leal Lymphocytes/100 WBC (Bld) 21.5 % Normal 20.5-60.0 [facility] Comment on above: Performed By: #### C BC ####[facility] Latrofokiv[address] [place] [phone]. Farhat Leal MANUAL DIFF REQ NO Normal [facility] Comment on above: Performed By: #### C BC ####[facility] Ekrnrxsrql[address] [place] [phone]. Farhat Leal MCH (RBC) [Entitic mass] 30.8 pg Normal 25.9-34.0 [facility] Comment on above: Performed By: #### C BC ####[facility] Sqpswbwdvd0736 [place] [phone]. Farhat Leal MCHC (RBC) [Mass/Vol] 33.4 g/dL Normal 29.9-35.2 [facility] Comment on above: Performed By: #### C BC ####[facility] [address] [place], [place] [address]Dr. Farhat Leal MCV (RBC) [Entitic vol] 92.1 fL Normal 80.0-94.0 [facility] Comment on above: Performed By: #### C BC ####[facility] [address] [place], [place] [address]Dr. Farhat Leal MONO # 0.6 103/ul Normal 0.3-0.8 [facility] Comment on above: Performed By: #### C BC ####[facility] [address]kw[address] [place], [place] [address]Dr. Farhat Leal Monocytes/100 WBC (Bld) 8.7 % Normal 1.7-12.0 [facility] Comment on above: Performed By: #### C BC ####[facility] [address]koneclyu[address] [place], [place] [address]Dr. Farhat Leal NEUT # 4.4 103/ul Normal 1.4-6.5 [facility] Comment on above: Performed By: #### C BC ####[facility] [address] [place], [place] [address]Dr. Farhat Leal Neutrophils/100 WBC (Bld) 64.5 % Normal 43.0-75.0 [facility] Comment on above: Performed By: #### C BC ####[facility] [address] [place] [address]Dr. Farhat Leal Platelet mean volume (Bld) [Entitic vol] 10.1 fL Normal 9.5-13.5 [facility] Comment on above: Performed By: #### C BC ####[facility] [address]ed[address] [place] [address]Dr. Farhat Leal PLT 177 103/ul Normal 150-450 [facility] Comment on above: Performed By: #### C BC ####[facility] Vts[address]zdyoe[address] [place] [address]Dr. Farhat Leal RBC 3.90 106/ul Critically low 4.70-6.10 [facility] Comment on above: Performed By: #### C BC ####[facility] E[address]oudsry[address] [place] [address]Dr. Farhat Leal WBC 6.8 103/ul Normal 4.0-11.0 [facility] Comment on above: Performed By: #### C BC ####[facility] Bkympioige[address] [place] [address]Dr. Farhat Leal PROF 14(COMP METB)on 023 Albumin [Mass/Vol] 2.8 g/dL Critically low 3.4-5.0 [facility] Comment on above: Performed By: #### C MP ####[facility] Z[address]agebw[address] [place] [address]Dr. Farhat Leal Albumin/Globulin [Mass ratio] 0.8 {ratio} Normal [facility] Comment on above: Performed By: #### C MP ####[facility] [address]fwszdxis[address] [place] [address]Dr. Farhat Leal ALP [Catalytic activity/Vol] 68 U/L Normal 46-116 [facility] Comment on above: Performed By: #### C MP ####[facility] Zjojsbxvsv[address] [place] [address]Dr. Farhat Leal ALT [Catalytic activity/Vol] 20 U/L Normal 16-63 [facility] Comment on above: Performed By: #### C MP ####[facility] Xrfselyecr[address] [place] [phone]. Farhat Leal Anion gap [Moles/Vol] 11.1 mmol/L Normal [facility] Comment on above: Performed By: #### C MP ####[facility] [address]quvmf[address] [place] [id number]. Farhat Leal AST [Catalytic activity/Vol] 22 U/L Normal 15-37 [facility] Comment on above: Performed By: #### C MP ####[facility] Sxctlzhcwc[address] [place], [place] [address]Dr. Farhat Leal Bilirubin [Mass/Vol] 0.4 mg/dL Normal 0.2-1.0 [facility] Comment on above: Performed By: #### C MP ####[facility] Uvoqjodfhz[address] [place], [place] [address]Dr. Farhat Leal Calcium [Mass/Vol] 8.5 mg/dL Normal 8.5-10.1 [facility] Comment on above: Performed By: #### C MP ####[facility] Bqxuqmfoco[address] [place], [place] [address]Dr. Farhat Leal Chloride [Moles/Vol] 106 mmol/L Normal 98-107 [facility] Comment on above: Performed By: #### C MP ####[facility] Uqupptfuva288[address] [place], [place] [address]Dr. Farhat Leal CO2 [Moles/Vol] 29.1 mmol/L Normal 21.0-32.0 [facility] Comment on above: Performed By: #### C MP ####[facility] Kzfexpyqco65[address] [place], [place] [address]Dr. Farhat Leal Creatinine [Mass/Vol] 1.70 mg/dL Critically high 0.70-1.30 [facility] Comment on above: Performed By: #### C MP ####[facility] Fytoufhecj44[address] [place], [place] [address]Dr. Farhat Leal EGFR-AF BOLIVIAN 48 mL/min/1.73m2 Critically low >=60 [facility] Comment on above: Performed By: #### C MP ####[facility] Zgbuxcobvp[address] [place] [address]Dr. Farhat Leal EGFR-NON AF BOLIVIAN 39 mL/min/1.73m2 Critically low >=60 [facility] Comment on above: Performed By: #### C MP ####[facility] Kljzqnvush16[address] [place] [address]Dr. Farhat Leal Globulin (S) [Mass/Vol] 3.6 g/dL Normal [facility] Comment on above: Performed By: #### C MP ####[facility] Gkhkrxckvd8[address] [place] [address]Dr. Farhat Leal Glucose [Mass/Vol] 312 mg/dL Critically high 74-106 [facility] Comment on above: Performed By: #### C MP ####[facility] Zgrczgqycn7372 [place] [address]Dr. Farhat Leal Potassium [Moles/Vol] 4.2 mmol/L Normal 3.5-5.1 [facility] Comment on above: Performed By: #### C MP ####[facility] Sxrgchsqoq[address] [place], [place] [address]Dr. Farhat Leal Protein [Mass/Vol] 6.4 g/dL Normal 6.4-8.2 [facility] Comment on above: Performed By: #### C MP ####[facility] Nvdttciken454[address] [place], [place] [address]Dr. Farhat Leal Sodium [Moles/Vol] 142 mmol/L Normal 136-145 [facility] Comment on above: Performed By: #### C MP ####[facility] Pabxmijxag004[address] [place], [place] [address]Dr. Farhat Leal Urea nitrogen [Mass/Vol] 49.0 mg/dL Critically high 7.0-18.0 [facility] Comment on above: Performed By: #### C MP ####[facility] Tlnasupvkb200[address] [place], [place] [address]Dr. Farhat Leal Urea nitrogen/Creatinine [Mass ratio] 28.8 mg/mg Normal [facility] Comment on above: Performed By: #### C MP ####[facility] Mxsqhczzrt[address] [place], [place] [address]Dr. Farhat Leal PROTIMEon 07-03-2022 INR Coag (PPP) [Relative time] 2.23 {INR} Normal [facility] Comment on above: Performed By: #### P T ####[facility] Leebxhwcpu9[address] [place], [place] [address]Dr. Farhat Leal INR GUIDELINES SEE BELOW Normal [facility] Comment on above: Result Comment: MALINA RED INR: 2.0 - 3.0 CONDITIONS NOT LISTED BELOW 2.5 - 3.5 FOR PROSTHETIC HEART VALVE REPLACEMENT 2.5 - 3.5 RECURRENT THROMBOSIS Performed By: #### P T ####[facility] Doogivuzqx3332[address] [place], [place] [address]Dr. Farhat Leal PT Coag (PPP) [Time] 22.6 s Critically high 9.0-11.6 [facility] Comment on above: Performed By: #### P T ####[facility] Jobmtjktcy615[address] [place], [place] [address]Dr. Farhat Leal FK506 (TACROLIMUS) WHOLE BLO ODon 06-29-2022 Tacrolimus (FK506), Blood 12.2 ng/mL Normal 2.0-20.0 [facility] Comment on above: Result Comment: Trou gh (immediately following transplant) 15.0 . Trough (steady state, 2 weeks or more after transplant): 3.0 - 8.0 . Performed by LC-MS/MS technology. Performed By: #### F K506T ####[facility] Mvbesqzotn50[address] [place], [place] [address]Dr. Farhat Leal CBC AUTO DIFFon 06-26-2022 BASO # 0.0 103/ul Normal 0.0-0.1 [facility] Comment on above: Performed By: #### C BC ####[facility] Gfpxeswogn[address] [place], [place] [address]Dr. Farhat Leal Basophils/100 WBC (Bld) 0.5 % Normal 0.2-2.0 [facility] Comment on above: Performed By: #### C BC ####[facility] Rcwrputdua9[address] [place] [address]Dr. Farhat Leal EO # 0.3 103/ul Normal 0.0-0.7 [facility] Comment on above: Performed By: #### C BC ####[facility] Ojvtafzkod4[address] [place] [address]Dr. Farhat Leal Eosinophils/100 WBC (Bld) 4.3 % Normal 0.9-7.0 [facility] Comment on above: Performed By: #### C BC ####[facility] Vasozzcsem477[address] [place], [place] [address]Dr. Farhat Leal Erythrocyte distribution width (RBC) [Ratio] 14.1 % Normal 11.0-15.0 [facility] Comment on above: Performed By: #### C BC ####[facility] Nocbporzxt250[address] [place], [place] [address]Dr. Farhat Leal Hematocrit (Bld) [Volume fraction] 35.4 % Critically low 42.0-54.0 [facility] Comment on above: Performed By: #### C BC ####[facility] Novxhyzfyu148[address] [place], [place] [address]Dr. Farhat Leal Hemoglobin (Bld) [Mass/Vol] 11.8 g/dL Critically low 14.0-18.0 [facility] Comment on above: Performed By: #### C BC ####[facility] Hbivuzkxlv417[address] [place], [place] [address]Dr. Farhat Leal IG # 0.02 10e3/ul Normal 0.00-0.03 [facility] Comment on above: Performed By: #### C BC ####[facility] Zoryoowvfc4843 [place] [address]Dr. Farhat Leal IG % 0.3 % Normal 0.0-0.5 [facility] Comment on above: Performed By: #### C BC ####[facility] Pjbgdsxsrq[address] [place], [place] [address]Dr. Farhat Leal LYMPH # 2.4 103/ul Normal 1.2-3.8 [facility] Comment on above: Performed By: #### C BC ####[facility] Zharhrgsik45[address] [place] [id number]. Farhat Elvis Lymphocytes/100 WBC (Bld) 40.4 % Normal 20.5-60.0 [facility] Comment on above: Performed By: #### C BC ####[facility] Aethcjioij12[address] [place] [id number]. Farhat Elvis MANUAL DIFF REQ NO Normal [facility] Comment on above: Performed By: #### C BC ####[facility] Grdilyeuwa1898 [place] [id number]. Farhat Elvis MCH (RBC) [Entitic mass] 31.0 pg Normal 25.9-34.0 [facility] Comment on above: Performed By: #### C BC ####[facility] Rrngyoewby8965 [place] [address]Dr. Farhat Elvis MCHC (RBC) [Mass/Vol] 33.3 g/dL Normal 29.9-35.2 [facility] Comment on above: Performed By: #### C BC ####[facility] Nmqpmhdueu9121 [place] [address]Dr. Madelynlorri Leal MCV (RBC) [Entitic vol] 92.9 fL Normal 80.0-94.0 [facility] Comment on above: Performed By: #### C BC ####[facility] Asufukykbv94[address] [place] [address]Dr. Farhat Leal MONO # 0.7 103/ul Normal 0.3-0.8 [facility] Comment on above: Performed By: #### C BC ####[facility] Ekustpmfak15[address] [place] [address]Dr. Madelynlorri Leal Monocytes/100 WBC (Bld) 11.1 % Normal 1.7-12.0 [facility] Comment on above: Performed By: #### C BC ####[facility] Kizlwkecbu[address] [place], [place] [address]Dr. Farhat Leal NEUT # 2.6 103/ul Normal 1.4-6.5 [facility] Comment on above: Performed By: #### C BC ####[facility] Yempbwdrsq7312 [place] [address]Dr. Farhat Leal Neutrophils/100 WBC (Bld) 43.4 % Normal 43.0-75.0 [facility] Comment on above: Performed By: #### C BC ####[facility] Tudpwhmjrv7296 [place] [address]Dr. Farhat Leal Platelet mean volume (Bld) [Entitic vol] 10.4 fL Normal 9.5-13.5 [facility] Comment on above: Performed By: #### C BC ####[facility] Obizfgxaer32[address] [place] [id number]. Farhat Leal PLT 211 103/ul Normal 150-450 [facility] Comment on above: Performed By: #### C BC ####[facility] Brnnqxieos20[address] [place] [address]Dr. Farhat Leal RBC 3.81 106/ul Critically low 4.70-6.10 [facility] Comment on above: Performed By: #### C BC ####[facility] Egmhfzsqoo4236 [place] [address]Dr. Madelynlorri Leal WBC 6.0 103/ul Normal 4.0-11.0 [facility] Comment on above: Performed By: #### C BC ####[facility] Jgezxcxbod12[address] [place], [place] [address]Dr. Farhat Leal PROF 14(COMP METB)on 023 Albumin [Mass/Vol] 2.6 g/dL Critically low 3.4-5.0 [facility] Comment on above: Performed By: #### C MP ####[facility] Vovzddldst0427 [place] [id number]. Farhat Leal Albumin/Globulin [Mass ratio] 0.8 {ratio} Normal [facility] Comment on above: Performed By: #### C MP ####[facility] Epjnmjjoko4272 [place] [address]Dr. Farhat Elvis ALP [Catalytic activity/Vol] 64 U/L Normal 46-116 [facility] Comment on above: Performed By: #### C MP ####[facility] Yisvfasirk2122 [place] [address]Dr. Farhat Leal ALT [Catalytic activity/Vol] 18 U/L Normal 16-63 [facility] Comment on above: Performed By: #### C MP ####[facility] Prqhsplibm6987 [place] [address]Dr. Farhat Leal Anion gap [Moles/Vol] 10.2 mmol/L Normal [facility] Comment on above: Performed By: #### C MP ####[facility] Heqsuvizyb[address] [place], [place] [address]Dr. Farhat Leal AST [Catalytic activity/Vol] 16 U/L Normal 15-37 [facility] Comment on above: Performed By: #### C MP ####[facility] Hbgmfrrqqn[address] [place], [place] [address]Dr. Farhat Leal Bilirubin [Mass/Vol] 0.6 mg/dL Normal 0.2-1.0 [facility] Comment on above: Performed By: #### C MP ####[facility] Bbpbmlrbpm08[address] [place], [place] [address]Dr. Farhat Leal Calcium [Mass/Vol] 8.5 mg/dL Normal 8.5-10.1 [facility] Comment on above: Performed By: #### C MP ####[facility] Ulqrgrzfxo464[address] [place], [place] [address]Dr. Farhat Leal Chloride [Moles/Vol] 106 mmol/L Normal 98-107 [facility] Comment on above: Performed By: #### C MP ####[facility] Shdtxmlfxv25[address] [place], [place] [address]Dr. Farhat Leal CO2 [Moles/Vol] 29.8 mmol/L Normal 21.0-32.0 [facility] Comment on above: Performed By: #### C MP ####[facility] Ldfkgwjlat193[address] [place], [place] [address]Dr. Farhat Leal Creatinine [Mass/Vol] 1.60 mg/dL Critically high 0.70-1.30 [facility] Comment on above: Performed By: #### C MP ####[facility] Jqstudnshh0455 [place] [address]Dr. Farhat Leal EGFR-AF BOLIVIAN 51 mL/min/1.73m2 Critically low >=60 [facility] Comment on above: Performed By: #### C MP ####[facility] Pnpunyfzyt6841 [place] [address]Dr. Farhat Leal EGFR-NON AF BOLIVIAN 42 mL/min/1.73m2 Critically low >=60 [facility] Comment on above: Performed By: #### C MP ####[facility] Dqerdjeibb2913 [place] [address]Dr. Farhat Leal Globulin (S) [Mass/Vol] 3.4 g/dL Normal [facility] Comment on above: Performed By: #### C MP ####[facility] Ifofigtmay3440[address] [place], [place] [address]Dr. Farhat Leal Glucose [Mass/Vol] 178 mg/dL Critically high 74-106 [facility] Comment on above: Performed By: #### C MP ####[facility] Amixgnwbgp1620[address] [place], [place] [address]Dr. Farhat Leal Potassium [Moles/Vol] 4.0 mmol/L Normal 3.5-5.1 [facility] Comment on above: Performed By: #### C MP ####[facility] Exeyztkzzx385[address] [place], [place] [address]Dr. Farhat Leal Protein [Mass/Vol] 6.0 g/dL Critically low 6.4-8.2 [facility] Comment on above: Performed By: #### C MP ####[facility] Uhsvvjejqy9460 [place] [address]Dr. Farhat Leal Sodium [Moles/Vol] 142 mmol/L Normal 136-145 [facility] Comment on above: Performed By: #### C MP ####[facility] Pjhvredtyg0616[address] [place], [place] [address]Dr. Farhat Leal Urea nitrogen [Mass/Vol] 49.0 mg/dL Critically high 7.0-18.0 [facility] Comment on above: Performed By: #### C MP ####[facility] Twfarnjhei0812[address] [place], [place] [address]Dr. Farhat Leal Urea nitrogen/Creatinine [Mass ratio] 30.6 mg/mg Normal [facility] Comment on above: Performed By: #### C MP ####[facility] Gerdawzklr[address] [place], [place] [address]Dr. Farhat Elvis PROTIMEon 06-26-2022 INR Coag (PPP) [Relative time] 1.77 {INR} Normal [facility] Comment on above: Performed By: #### P T ####[facility] Uhufumdcov45[address] [place], [place] [address]Dr. Farhat Leal INR GUIDELINES SEE BELOW Normal [facility] Comment on above: Result Comment: MALINA RED INR: 2.0 - 3.0 CONDITIONS NOT LISTED BELOW 2.5 - 3.5 FOR PROSTHETIC HEART VALVE REPLACEMENT 2.5 - 3.5 RECURRENT THROMBOSIS Performed By: #### P T ####[facility] Kyebtxjkfw9[address] [place], [place] [address]Dr. Farhat Leal PT Coag (PPP) [Time] 18.2 s Critically high 9.0-11.6 [facility] Comment on above: Performed By: #### P T ####[facility] S[address]zzol[address] [place] [address]. Farhat Leal FK506 (TACROLIMUS) WHOLE BLO ODon 06-22-2022 Tacrolimus (FK506), Blood 24.5 ng/mL Invalid Interpretation Code 2.0-20.0 [facility] Comment on above: Result Comment: Trou gh (immediately following transplant) 15.0 . Trough (steady state, 2 weeks or more after transplant): 3.0 - 8.0 . Performed by LC-MS/MS technology.Patient drug level exceeds published reference range. Evaluateclinically for signs of potential toxicity. Performed By: #### F K506T ####[facility] Rjzunuuzan[address] [place], [place] [address]Dr. Farhat Leal CBC AUTO DIFFon 06-19-2022 BASO # 0.1 103/ul Normal 0.0-0.1 [facility] Comment on above: Performed By: #### C BC ####[facility] Kt[address]lhrkmu[address] [place] [id number]. Farhat Leal Basophils/100 WBC (Bld) 0.7 % Normal 0.2-2.0 [facility] Comment on above: Performed By: #### C BC ####[facility] Dmbdumjnbj7215 [place] [id number]. Farhat Leal EO # 0.4 103/ul Normal 0.0-0.7 [facility] Comment on above: Performed By: #### C BC ####[facility] Fhodkdwfac[address] [place], [place] [address]Dr. Farhat Leal Eosinophils/100 WBC (Bld) 5.7 % Normal 0.9-7.0 [facility] Comment on above: Performed By: #### C BC ####[facility] Ovtrbunzte8[address] [place], [place] [address]Dr. Farhat Leal Erythrocyte distribution width (RBC) [Ratio] 14.5 % Normal 11.0-15.0 [facility] Comment on above: Performed By: #### C BC ####[facility] Pywzanycad[address] [place], [place] [address]Dr. Farhat Leal Hematocrit (Bld) [Volume fraction] 34.1 % Critically low 42.0-54.0 [facility] Comment on above: Performed By: #### C BC ####[facility] [address]aikr[address] [place], [place] [address]Dr. Farhat Leal Hemoglobin (Bld) [Mass/Vol] 11.3 g/dL Critically low 14.0-18.0 [facility] Comment on above: Performed By: #### C BC ####[facility] Sjwyvkuvoy[address] [place], [place] [address]Dr. Farhat Leal IG # 0.02 10e3/ul Normal 0.00-0.03 [facility] Comment on above: Performed By: #### C BC ####[facility] Ftfhmpvouz[address] [place], [place] [address]Dr. Farhat Leal IG % 0.3 % Normal 0.0-0.5 [facility] Comment on above: Performed By: #### C BC ####[facility] Tdwxsitcoi0863 [place] [id number]. Farhat Leal LYMPH # 3.1 103/ul Normal 1.2-3.8 [facility] Comment on above: Performed By: #### C BC ####[facility] Dtufvbprgn2706 [place] [id number]. Farhat Leal Lymphocytes/100 WBC (Bld) 40.6 % Normal 20.5-60.0 [facility] Comment on above: Performed By: #### C BC ####[facility] Rqwbfdpaov9861 [place] [id number]. Farhat Elvis MANUAL DIFF REQ NO Normal [facility] Comment on above: Performed By: #### C BC ####[facility] Imjtpslhys39[address] [place] [id number]. Farhat Elvis MCH (RBC) [Entitic mass] 30.6 pg Normal 25.9-34.0 [facility] Comment on above: Performed By: #### C BC ####[facility] Rfvasvyxhe3670 [place] [id number]. Farhat Leal MCHC (RBC) [Mass/Vol] 33.1 g/dL Normal 29.9-35.2 [facility] Comment on above: Performed By: #### C BC ####[facility] Xwsgryhhdn8844 [place] [id number]. Farhat Elvis MCV (RBC) [Entitic vol] 92.4 fL Normal 80.0-94.0 [facility] Comment on above: Performed By: #### C BC ####[facility] Gbgxlmstmi2493 [place] [id number]. Farhat Elvis MONO # 0.8 103/ul Normal 0.3-0.8 [facility] Comment on above: Performed By: #### C BC ####[facility] Lxixzpavgt5131 [place] [id number]. Farhat Elvis Monocytes/100 WBC (Bld) 10.6 % Normal 1.7-12.0 [facility] Comment on above: Performed By: #### C BC ####[facility] Oqmorwybuz8592 [place] [id number]. Farhat Leal NEUT # 3.2 103/ul Normal 1.4-6.5 [facility] Comment on above: Performed By: #### C BC ####[facility] Wvvoiqeguk[address] [place] [id number]. Farhat Leal Neutrophils/100 WBC (Bld) 42.1 % Critically low 43.0-75.0 [facility] Comment on above: Performed By: #### C BC ####[facility] Liuyfqiayc6325 [place] [id number]. Farhat Leal Platelet mean volume (Bld) [Entitic vol] 10.6 fL Normal 9.5-13.5 [facility] Comment on above: Performed By: #### C BC ####[facility] Vndmolfmkz8907 [place] [id number]. Madelynlorri Elvis PLT 187 103/ul Normal 150-450 [facility] Comment on above: Performed By: #### C BC ####[facility] Pfxcbatqil4802 [place] [id number]. Farhat Elvis RBC 3.69 106/ul Critically low 4.70-6.10 [facility] Comment on above: Performed By: #### C BC ####[facility] Yfpparfozi8095 [place] [id number]. Farhat Leal WBC 7.7 103/ul Normal 4.0-11.0 [facility] Comment on above: Performed By: #### C BC ####[facility] [address]ypyaamt6[address] [place] [address]Dr. Farhat Leal PROF 14(COMP METB)on 023 Albumin [Mass/Vol] 2.5 g/dL Critically low 3.4-5.0 [facility] Comment on above: Performed By: #### C MP ####[facility] Hcolleynmf6275 [place] [id number]. Farhat Leal Albumin/Globulin [Mass ratio] 0.8 {ratio} Normal [facility] Comment on above: Performed By: #### C MP ####[facility] Wipkadsoqd1626 [place] [id number]. Farhat Leal ALP [Catalytic activity/Vol] 60 U/L Normal 46-116 [facility] Comment on above: Performed By: #### C MP ####[facility] Vopbxtanxe5492 [place] [address]Dr. Farhat Leal ALT [Catalytic activity/Vol] 16 U/L Normal 16-63 [facility] Comment on above: Performed By: #### C MP ####[facility] Gzytakngrk7[address] [place] [address]Dr. Farhat Leal Anion gap [Moles/Vol] 9.1 mmol/L Normal [facility] Comment on above: Performed By: #### C MP ####[facility] Dtacpqnken2137 [place] [address]Dr. Farhat Leal AST [Catalytic activity/Vol] 31 U/L Normal 15-37 [facility] Comment on above: Performed By: #### C MP ####[facility] Wsdsjivubb[address] [place], [place] [address]Dr. Farhat Leal Bilirubin [Mass/Vol] 0.3 mg/dL Normal 0.2-1.0 [facility] Comment on above: Performed By: #### C MP ####[facility] Ysqflzlugr[address] [place], [place] [address]Dr. Farhat Leal Calcium [Mass/Vol] 8.2 mg/dL Critically low 8.5-10.1 [facility] Comment on above: Performed By: #### C MP ####[facility] Ipbddrwzuk4939 [place] [address]Dr. Farhat Leal Chloride [Moles/Vol] 106 mmol/L Normal 98-107 [facility] Comment on above: Performed By: #### C MP ####[facility] Kvmqqxhdqr[address] [place], [place] [address]Dr. Farhat Leal CO2 [Moles/Vol] 27.0 mmol/L Normal 21.0-32.0 [facility] Comment on above: Performed By: #### C MP ####[facility] Tplmdfuila4485 [place] [address]Dr. Farhat Leal Creatinine [Mass/Vol] 1.51 mg/dL Critically high 0.70-1.30 [facility] Comment on above: Performed By: #### C MP ####[facility] Wlsnczlomu4719 [place] [address]Dr. Farhat Leal EGFR-AF BOLIVIAN 55 mL/min/1.73m2 Critically low >=60 [facility] Comment on above: Performed By: #### C MP ####[facility] Vuuxomrqpz7394 [place] [address]Dr. Farhat Leal EGFR-NON AF BOLIVIAN 45 mL/min/1.73m2 Critically low >=60 [facility] Comment on above: Performed By: #### C MP ####[facility] Ildmnbsnfu8[address] [place], [place] [address]Dr. Farhat Leal Globulin (S) [Mass/Vol] 3.2 g/dL Normal [facility] Comment on above: Performed By: #### C MP ####[facility] Qksulmasrb434[address] [place], [place] [address]Dr. Farhat Leal Glucose [Mass/Vol] 165 mg/dL Critically high 74-106 [facility] Comment on above: Performed By: #### C MP ####[facility] Ajjfrmijog9149 [place] [address]Dr. Farhat Leal Potassium [Moles/Vol] 4.1 mmol/L Normal 3.5-5.1 [facility] Comment on above: Performed By: #### C MP ####[facility] Xbtjbmcjmn7908 [place] [address]Dr. Farhat Leal Protein [Mass/Vol] 5.7 g/dL Critically low 6.4-8.2 [facility] Comment on above: Performed By: #### C MP ####[facility] Vhmiqixlqp[address] [place], [place] [address]Dr. Farhat Leal Sodium [Moles/Vol] 138 mmol/L Normal 136-145 [facility] Comment on above: Performed By: #### C MP ####[facility] Gkonevobgd[address] [place], [place] [address]Dr. Farhat Leal Urea nitrogen [Mass/Vol] 51.0 mg/dL Critically high 7.0-18.0 [facility] Comment on above: Performed By: #### C MP ####[facility] Uvwqnopueo[address] [place], [place] [address]Dr. Farhat Leal Urea nitrogen/Creatinine [Mass ratio] 33.8 mg/mg Normal [facility] Comment on above: Performed By: #### C MP ####[facility] Fmbsclgnfr[address] [place], [place] [address]Dr. Farhat Leal FK506 (TACROLIMUS) WHOLE BLO ODon 06-15-2022 Tacrolimus (FK506), Blood 16.4 ng/mL Normal 2.0-20.0 [facility] Comment on above: Result Comment: Trou gh (immediately following transplant) 15.0 . Trough (steady state, 2 weeks or more after transplant): 3.0 - 8.0 . Performed by LC-MS/MS technology. Performed By: #### F K506T ####[facility] [address]uf[address] [place], [place] [address]Dr. Farhat Leal PROTIMEon 06-15-2022 INR Coag (PPP) [Relative time] 1.64 {INR} Normal [facility] Comment on above: Performed By: #### P T ####[facility] Uktdkosp[address] [place], [place] [address]DrSkylar Leal INR GUIDELINES SEE BELOW Normal [facility] Comment on above: Result Comment: MALINA RED INR: 2.0 - 3.0 CONDITIONS NOT LISTED BELOW 2.5 - 3.5 FOR PROSTHETIC HEART VALVE REPLACEMENT 2.5 - 3.5 RECURRENT THROMBOSIS Performed By: #### P T ####[facility] Gssuwizmnl[address] [place], [place] [address]DrSkylar Leal PT Coag (PPP) [Time] 16.9 s Critically high 9.0-11.6 [facility] Comment on above: Performed By: #### P T ####[facility] Whlclacsvz[address] [place], [place] [address]DrSkylar Leal CBC AUTO DIFFon 06-12-2022 BASO # 0.0 103/ul Normal 0.0-0.1 [facility] Comment on above: Performed By: #### C BC ####[facility] [address] [place] [address]Dr. Farhat Leal Basophils/100 WBC (Bld) 0.4 % Normal 0.2-2.0 [facility] Comment on above: Performed By: #### C BC ####[facility] Izoxffxlzh[address] [place], [place] [address]Dr. Farhat Leal EO # 0.4 103/ul Normal 0.0-0.7 [facility] Comment on above: Performed By: #### C BC ####[facility] Gsvmnagdea[address] [place], [place] [address]Dr. Farhat Leal Eosinophils/100 WBC (Bld) 5.4 % Normal 0.9-7.0 [facility] Comment on above: Performed By: #### C BC ####[facility] Tvoekwphbt23[address] [place], [place] [address]Dr. Farhat Leal Erythrocyte distribution width (RBC) [Ratio] 14.7 % Normal 11.0-15.0 [facility] Comment on above: Performed By: #### C BC ####[facility] Goozoghjqq644[address] [place], [place] [address]Dr. Farhat Leal Hematocrit (Bld) [Volume fraction] 34.8 % Critically low 42.0-54.0 [facility] Comment on above: Performed By: #### C BC ####[facility] Aktnzgtfyy170[address] [place], [place] [address]Dr. Farhat Leal Hemoglobin (Bld) [Mass/Vol] 11.7 g/dL Critically low 14.0-18.0 [facility] Comment on above: Performed By: #### C BC ####[facility] Ifshlxcdrh[address] [place], [place] [address]Dr. Farhat Leal IG # 0.02 10e3/ul Normal 0.00-0.03 [facility] Comment on above: Performed By: #### C BC ####[facility] Tsdnrdrenh[address] [place], [place] [address]Dr. Farhat Leal IG % 0.3 % Normal 0.0-0.5 [facility] Comment on above: Performed By: #### C BC ####[facility] [address] [place] [address]DrSkylar Leal LYMPH # 2.5 103/ul Normal 1.2-3.8 [facility] Comment on above: Performed By: #### C BC ####[facility] Xfivwrzobt[address] [place] [address]Dr. Farhat Leal Lymphocytes/100 WBC (Bld) 36.8 % Normal 20.5-60.0 [facility] Comment on above: Performed By: #### C BC ####[facility] Endmlbwulj[address] [place], [place] [address]DrSkylar Leal MANUAL DIFF REQ NO Normal [facility] Comment on above: Performed By: #### C BC ####[facility] [address]djv[address] [place] [address]Dr. Farhat Leal MCH (RBC) [Entitic mass] 30.9 pg Normal 25.9-34.0 [facility] Comment on above: Performed By: #### C BC ####[facility] Pwooziprhh[address] [place], [place] [address]Dr. Madelynlorri Leal MCHC (RBC) [Mass/Vol] 33.6 g/dL Normal 29.9-35.2 [facility] Comment on above: Performed By: #### C BC ####[facility] Uqwbnnssum[address] [place], [place] [address]DrSkylar Leal MCV (RBC) [Entitic vol] 91.8 fL Normal 80.0-94.0 [facility] Comment on above: Performed By: #### C BC ####[facility] Tfnigyrkmz[address] [place], [place] [address]DrSkylar Leal MONO # 0.8 103/ul Normal 0.3-0.8 [facility] Comment on above: Performed By: #### C BC ####[facility] Rulnavwwzs[address] [place], [place] [address]DrSkylar Leal Monocytes/100 WBC (Bld) 11.9 % Normal 1.7-12.0 [facility] Comment on above: Performed By: #### C BC ####[facility] [address] [place] [address]DrSkylar Farhat Leal NEUT # 3.1 103/ul Normal 1.4-6.5 [facility] Comment on above: Performed By: #### C BC ####[facility] [address]rleis[address] [place] [address]DrSkylar Farhat Leal Neutrophils/100 WBC (Bld) 45.2 % Normal 43.0-75.0 [facility] Comment on above: Performed By: #### C BC ####[facility] Bbonwcorra[address] [place], [place] [address]DrSkylar Farhat Leal Platelet mean volume (Bld) [Entitic vol] 10.5 fL Normal 9.5-13.5 [facility] Comment on above: Performed By: #### C BC ####[facility] Wlxigkgluy[address] [place], [place] [address]Dr. Farhat Leal PLT 175 103/ul Normal 150-450 [facility] Comment on above: Performed By: #### C BC ####[facility] Qhjgltooug[address] [place], [place] [address]DrSkylar Farhat Leal RBC 3.79 106/ul Critically low 4.70-6.10 [facility] Comment on above: Performed By: #### C BC ####[facility] Pdac[address]yzu[address] [place], [place] [address]DrSkylar Farhat Leal WBC 6.8 103/ul Normal 4.0-11.0 [facility] Comment on above: Performed By: #### C BC ####[facility] Wowjtmivol[address] [place], [place] [address]DrSkylar Farhat Leal MAGNESIUMon 06-12-2022 Magnesium [Mass/Vol] 1.6 mg/dL Critically low 1.8-2.4 [facility] Comment on above: Performed By: #### C MP, MG, PHOS ####[facility] Mkwdikxtqq[address] [place], [place] [address]Dr. Farhat Leal PHOSPHORUSon 06-12-2022 Phosphate [Mass/Vol] 3.8 mg/dL Normal 2.6-4.7 [facility] Comment on above: Performed By: #### C MP, MG, PHOS ####[facility] [address] [place] [address]Dr. Farhat Leal PROF 14(COMP METB)on 023 Albumin [Mass/Vol] 2.6 g/dL Critically low 3.4-5.0 [facility] Comment on above: Performed By: #### C MP, MG, PHOS ####[facility] [address]vf[address] [place] [address]Dr. Farhat Leal Albumin/Globulin [Mass ratio] 0.8 {ratio} Normal [facility] Comment on above: Performed By: #### C MP, MG, PHOS ####[facility] Ydg[address]yle[address] [place] [address]Dr. Farhat Leal ALP [Catalytic activity/Vol] 64 U/L Normal 46-116 [facility] Comment on above: Performed By: #### C MP, MG, PHOS ####[facility] Guusfeifiy[address] [place] [address]Dr. Farhat Leal ALT [Catalytic activity/Vol] 18 U/L Normal 16-63 [facility] Comment on above: Performed By: #### C MP, MG, PHOS ####[facility] Nrodqtwjzm9[address] [place] [address]Dr. Farhat Leal Anion gap [Moles/Vol] 12.9 mmol/L Normal [facility] Comment on above: Performed By: #### C MP, MG, PHOS ####[facility] K[address]ornyloh[address] [place] [address]Dr. Farhat Leal AST [Catalytic activity/Vol] 18 U/L Normal 15-37 [facility] Comment on above: Performed By: #### C MP, MG, PHOS ####[facility] [address]ztpifn[address] [place] [address]Dr. Farhat Leal Bilirubin [Mass/Vol] 0.4 mg/dL Normal 0.2-1.0 [facility] Comment on above: Performed By: #### C MP, MG, PHOS ####[facility] Iiwgdbslvm99[address] [place] [address]Dr. Farhat Leal Calcium [Mass/Vol] 8.7 mg/dL Normal 8.5-10.1 [facility] Comment on above: Performed By: #### C MP, MG, PHOS ####[facility] Usssewvnko[address] [place], [place] [address]Dr. Farhat Leal Chloride [Moles/Vol] 105 mmol/L Normal 98-107 [facility] Comment on above: Performed By: #### C MP, MG, PHOS ####[facility] Phtkhbfymf[address] [place], [place] [address]Dr. Farhat Leal CO2 [Moles/Vol] 27.9 mmol/L Normal 21.0-32.0 [facility] Comment on above: Performed By: #### C MP, MG, PHOS ####[facility] Jlowhcnqjz[address] [place], [place] [address]Dr. Farhat Leal Creatinine [Mass/Vol] 1.53 mg/dL Critically high 0.70-1.30 [facility] Comment on above: Performed By: #### C MP, MG, PHOS ####[facility] Irfkvsxxyx[address] [place], [place] [address]Dr. Farhat Leal EGFR-AF BOLIVIAN 54 mL/min/1.73m2 Critically low >=60 [facility] Comment on above: Performed By: #### C MP, MG, PHOS ####[facility] [address]feqplbrl[address] [place], [place] [address]Dr. Farhat Leal EGFR-NON AF BOLIVIAN 44 mL/min/1.73m2 Critically low >=60 [facility] Comment on above: Performed By: #### C MP, MG, PHOS ####[facility] [address]qjcxpfp[address] [place] [address]Dr. Farhat Leal Globulin (S) [Mass/Vol] 3.4 g/dL Normal [facility] Comment on above: Performed By: #### C MP, MG, PHOS ####[facility] S[address]ya[address] [place] [address]Dr. Farhat Leal Glucose [Mass/Vol] 179 mg/dL Critically high 74-106 [facility] Comment on above: Performed By: #### C MP, MG, PHOS ####[facility] Z[address]opm[address] [place] [address]Dr. Farhat Leal Potassium [Moles/Vol] 3.8 mmol/L Normal 3.5-5.1 [facility] Comment on above: Performed By: #### C MP, MG, PHOS ####[facility] W[address]udxr14[address] [place] [address]Dr. Farhat Leal Protein [Mass/Vol] 6.0 g/dL Critically low 6.4-8.2 [facility] Comment on above: Performed By: #### C MP, MG, PHOS ####[facility] [address] [place] [address]Dr. Farhat Leal Sodium [Moles/Vol] 142 mmol/L Normal 136-145 [facility] Comment on above: Performed By: #### C MP, MG, PHOS ####[facility] V[address]ipksq18[address] [place] [address]Dr. Farhat Leal Urea nitrogen [Mass/Vol] 56.0 mg/dL Critically high 7.0-18.0 [facility] Comment on above: Performed By: #### C MP, MG, PHOS ####[facility] [address]pocsaxf[address] [place] [address]Dr. Farhat Leal Urea nitrogen/Creatinine [Mass ratio] 36.6 mg/mg Normal [facility] Comment on above: Performed By: #### C MP, MG, PHOS ####[facility] [address] [place] [address]Dr. Farhat Elvis FK506 (TACROLIMUS) WHOLE BLO ODon 06-08-2022 Tacrolimus (FK506), Blood 13.2 ng/mL Normal 2.0-20.0 [facility] Comment on above: Result Comment: Trou gh (immediately following transplant) 15.0 . Trough (steady state, 2 weeks or more after transplant): 3.0 - 8.0 . Performed by LC-MS/MS technology. Performed By: #### F K506T ####[facility] Cjddtjlqq[address] [place], [place] [address]Dr. Farhat Leal CBC AUTO DIFFon 06-05-2022 BASO # 0.1 103/ul Normal 0.0-0.1 [facility] Comment on above: Performed By: #### C BC ####[facility] Ylxlcycsav[address] [place], [place] [address]Dr. Farhat Leal Basophils/100 WBC (Bld) 0.8 % Normal 0.2-2.0 [facility] Comment on above: Performed By: #### C BC ####[facility] Rqpkhebpqx[address] [place], [place] [address]Dr. Farhat Leal EO # 0.3 103/ul Normal 0.0-0.7 [facility] Comment on above: Performed By: #### C BC ####[facility] Yilvqhrtgh[address] [place], [place] [address]Dr. Madelynlorri Leal Eosinophils/100 WBC (Bld) 4.7 % Normal 0.9-7.0 [facility] Comment on above: Performed By: #### C BC ####[facility] Wxnmsqgcmt[address] [place], [place] [address]Dr. Farhat Leal Erythrocyte distribution width (RBC) [Ratio] 15.1 % Critically high 11.0-15.0 [facility] Comment on above: Performed By: #### C BC ####[facility] Dvcrrnmavd[address] [place], [place] [address]Dr. Farhat Leal Hematocrit (Bld) [Volume fraction] 35.5 % Critically low 42.0-54.0 [facility] Comment on above: Performed By: #### C BC ####[facility] Uxipdlarea[address] [place], [place] [address]Dr. Farhat Leal Hemoglobin (Bld) [Mass/Vol] 11.7 g/dL Critically low 14.0-18.0 [facility] Comment on above: Performed By: #### C BC ####[facility] [address] [place] [id number]. Madelynlorri Leal IG # 0.01 10e3/ul Normal 0.00-0.03 [facility] Comment on above: Performed By: #### C BC ####[facility] Fxribxazfe64[address] [place] [address]Dr. Madelynlorri Elvis IG % 0.2 % Normal 0.0-0.5 [facility] Comment on above: Performed By: #### C BC ####[facility] [address] [place] [address]Dr. Madelynlorri Elvis LYMPH # 2.1 103/ul Normal 1.2-3.8 [facility] Comment on above: Performed By: #### C BC ####[facility] Emgqgmjhyi57[address] [place] [address]Dr. Farhat Leal Lymphocytes/100 WBC (Bld) 34.5 % Normal 20.5-60.0 [facility] Comment on above: Performed By: #### C BC ####[facility] [address]rpiw[address] [place] [address]Dr. Farhat Leal MANUAL DIFF REQ NO Normal [facility] Comment on above: Performed By: #### C BC ####[facility] G[address]jfzzd[address] [place] [address]Dr. Farhat Elvis MCH (RBC) [Entitic mass] 30.6 pg Normal 25.9-34.0 [facility] Comment on above: Performed By: #### C BC ####[facility] R[address]vyqmirr25[address] [place] [address]Dr. Farhat Elvis MCHC (RBC) [Mass/Vol] 33.0 g/dL Normal 29.9-35.2 [facility] Comment on above: Performed By: #### C BC ####[facility] [address]bcrvmjvm8[address] [place] [address]Dr. Farhat Elvis MCV (RBC) [Entitic vol] 92.9 fL Normal 80.0-94.0 [facility] Comment on above: Performed By: #### C BC ####[facility] Eh[address]agejgg[address] [place] [id number]. Farhat Leal MONO # 0.7 103/ul Normal 0.3-0.8 [facility] Comment on above: Performed By: #### C BC ####[facility] Iqrmladhds5237 [place] [phone]. Farhat Leal Monocytes/100 WBC (Bld) 11.4 % Normal 1.7-12.0 [facility] Comment on above: Performed By: #### C BC ####[facility] Scudtwrgjs[address] [place] [id number]. Farhat Leal NEUT # 2.9 103/ul Normal 1.4-6.5 [facility] Comment on above: Performed By: #### C BC ####[facility] Hrrgescmeo[address] [place], [place] [address]Dr. Farhat Leal Neutrophils/100 WBC (Bld) 48.4 % Normal 43.0-75.0 [facility] Comment on above: Performed By: #### C BC ####[facility] Rcqrthujtt[address] [place], [place] [address]Dr. Farhat Leal Platelet mean volume (Bld) [Entitic vol] 10.7 fL Normal 9.5-13.5 [facility] Comment on above: Performed By: #### C BC ####[facility] Qlsxfhabtx[address] [place], [place] [address]Dr. Farhat Leal PLT 185 103/ul Normal 150-450 [facility] Comment on above: Performed By: #### C BC ####[facility] Fzfhicoobt[address] [place], [place] [address]Dr. Farhat Leal RBC 3.82 106/ul Critically low 4.70-6.10 [facility] Comment on above: Performed By: #### C BC ####[facility] Csxz[address]bkl[address] [place], [place] [address]Dr. Farhat Leal WBC 6.0 103/ul Normal 4.0-11.0 [facility] Comment on above: Performed By: #### C BC ####[facility] Ktaksltblz[address] [place], [place] [address]Dr. Farhat Leal MAGNESIUMon 06-05-2022 Magnesium [Mass/Vol] 1.9 mg/dL Normal 1.8-2.4 [facility] Comment on above: Performed By: #### P HOS, MG ####[facility] [address]hobi[address] [place] [address]Dr. Farhat Leal PHOSPHORUSon 06-05-2022 Phosphate [Mass/Vol] 4.4 mg/dL Normal 2.6-4.7 [facility] Comment on above: Performed By: #### P HOS, MG ####[facility] [address]zv[address] [place] [address]Dr. Farhat Leal PROTIMEon 06-05-2022 INR Coag (PPP) [Relative time] 2.16 {INR} Normal [facility] Comment on above: Performed By: #### P T ####[facility] R[address]axumsot[address] [place] [address]Dr. Farhat Leal INR GUIDELINES SEE BELOW Normal [facility] Comment on above: Result Comment: MALINA RED INR: 2.0 - 3.0 CONDITIONS NOT LISTED BELOW 2.5 - 3.5 FOR PROSTHETIC HEART VALVE REPLACEMENT 2.5 - 3.5 RECURRENT THROMBOSIS Performed By: #### P T ####[facility] [address]og[address] [place] [address]Dr. Farhat Leal PT Coag (PPP) [Time] 21.9 s Critically high 9.0-11.6 [facility] Comment on above: Performed By: #### P T ####[facility] Emthtfxksf[address] [place] [address]Dr. Farhat Leal FK506 (TACROLIMUS) WHOLE BLO ODon 06-01-2022 Tacrolimus (FK506), Blood 26.4 ng/mL Invalid Interpretation Code 2.0-20.0 [facility] Comment on above: Result Comment: Trou gh (immediately following transplant) 15.0 . Trough (steady state, 2 weeks or more after transplant): 3.0 - 8.0 . Performed by LC-MS/MS technology.Patient drug level exceeds published reference range. Evaluateclinically for signs of potential toxicity. Performed By: #### F K506T ####[facility] [address]jt[address] [place] [id number]. Farhat Leal CBC AUTO DIFFon 05-29-2022 BASO # 0.0 103/ul Normal 0.0-0.1 [facility] Comment on above: Performed By: #### C BC ####[facility] Fsqgbbgwkg[address] [place], [place] [address]Dr. Farhat Elvis Basophils/100 WBC (Bld) 0.6 % Normal 0.2-2.0 [facility] Comment on above: Performed By: #### C BC ####[facility] Odkzqnbvyg[address] [place], [place] [address]Dr. Farhat Leal EO # 0.3 103/ul Normal 0.0-0.7 [facility] Comment on above: Performed By: #### C BC ####[facility] [address]zewaibzc[address] [place], [place] [address]Dr. Madelynlorri Leal Eosinophils/100 WBC (Bld) 4.7 % Normal 0.9-7.0 [facility] Comment on above: Performed By: #### C BC ####[facility] Fytdodquxg[address] [place], [place] [address]Dr. Farhat Leal Erythrocyte distribution width (RBC) [Ratio] 15.3 % Critically high 11.0-15.0 [facility] Comment on above: Performed By: #### C BC ####[facility] [address]kpbaeqrnz[address] [place], [place] [address]Dr. Farhat Leal Hematocrit (Bld) [Volume fraction] 36.6 % Critically low 42.0-54.0 [facility] Comment on above: Performed By: #### C BC ####[facility] Bwiljdxgir[address] [place], [place] [address]Dr. Farhat Leal Hemoglobin (Bld) [Mass/Vol] 12.3 g/dL Critically low 14.0-18.0 [facility] Comment on above: Performed By: #### C BC ####[facility] Nlkakgsyko[address] [place], [place] [address]Dr. Farhat Leal IG # 0.02 10e3/ul Normal 0.00-0.03 [facility] Comment on above: Performed By: #### C BC ####[facility] [address]frzlfu[address] [place] [address]Dr. Madelynlorri Leal IG % 0.3 % Normal 0.0-0.5 [facility] Comment on above: Performed By: #### C BC ####[facility] [address]egm[address]ofs[address] [place] [phone]. Farhat Elvis LYMPH # 2.8 103/ul Normal 1.2-3.8 [facility] Comment on above: Performed By: #### C BC ####[facility] Xmwtcwnvjj[address] [place], [place] [address]Dr. Madelynlorri Leal Lymphocytes/100 WBC (Bld) 44.4 % Normal 20.5-60.0 [facility] Comment on above: Performed By: #### C BC ####[facility] Rojvbzqqko[address] [place], [place] [address]Dr. Farhat Leal MANUAL DIFF REQ NO Normal [facility] Comment on above: Performed By: #### C BC ####[facility] Actdkvkdup32[address] [place] [address]Dr. Farhat Elvis MCH (RBC) [Entitic mass] 30.4 pg Normal 25.9-34.0 [facility] Comment on above: Performed By: #### C BC ####[facility] T[address]wfsauly[address] [place] [address]Dr. Farhat Elvis MCHC (RBC) [Mass/Vol] 33.6 g/dL Normal 29.9-35.2 [facility] Comment on above: Performed By: #### C BC ####[facility] [address]umclbptcq[address] [place], [place] [address]Dr. Farhat Elvis MCV (RBC) [Entitic vol] 90.4 fL Normal 80.0-94.0 [facility] Comment on above: Performed By: #### C BC ####[facility] Zrxktyhfra[address] [place], [place] [address]Dr. Farhat Leal MONO # 0.7 103/ul Normal 0.3-0.8 [facility] Comment on above: Performed By: #### C BC ####[facility] Whqxpekoqt44[address] [place] [phone]. Farhat Leal Monocytes/100 WBC (Bld) 10.7 % Normal 1.7-12.0 [facility] Comment on above: Performed By: #### C BC ####[facility] [address]lroxqro[address] [place] [phone]. Farhat Leal NEUT # 2.5 103/ul Normal 1.4-6.5 [facility] Comment on above: Performed By: #### C BC ####[facility] Zqlpuwwabi56[address] [place] [phone]. Farhat Leal Neutrophils/100 WBC (Bld) 39.3 % Critically low 43.0-75.0 [facility] Comment on above: Performed By: #### C BC ####[facility] [address]vfffojuc[address] [place] [address]Dr. Farhat Leal Platelet mean volume (Bld) [Entitic vol] 10.5 fL Normal 9.5-13.5 [facility] Comment on above: Performed By: #### C BC ####[facility] [address]cdor[address] [place] [address]Dr. Farhat Leal PLT 190 103/ul Normal 150-450 [facility] Comment on above: Performed By: #### C BC ####[facility] [address]amlrgyuhh[address] [place] [phone]. Farhat Leal RBC 4.05 106/ul Critically low 4.70-6.10 [facility] Comment on above: Performed By: #### C BC ####[facility] Jwmanxgvsy24[address] [place] [phone]. Farhat Leal WBC 6.4 103/ul Normal 4.0-11.0 [facility] Comment on above: Performed By: #### C BC ####[facility] Bctcpqexvn86[address] [place] [address]DrSkylar Leal PROF 14(COMP METB)on 023 Albumin [Mass/Vol] 2.5 g/dL Critically low 3.4-5.0 [facility] Comment on above: Performed By: #### C MP ####[facility] Lmenpegpqq[address] [place] [address]Dr. Madelynlorri Elvis Albumin/Globulin [Mass ratio] 0.8 {ratio} Normal [facility] Comment on above: Performed By: #### C MP ####[facility] [address]yyggnmh[address] [place] [address]Dr. Farhat Leal ALP [Catalytic activity/Vol] 61 U/L Normal 46-116 [facility] Comment on above: Performed By: #### C MP ####[facility] I[address]rmyhbru[address] [place] [address]Dr. Farhat Leal ALT [Catalytic activity/Vol] 16 U/L Normal 16-63 [facility] Comment on above: Performed By: #### C MP ####[facility] [address]usrtohngi[address] [place], [place] [address]Dr. Farhat Leal Anion gap [Moles/Vol] 12.3 mmol/L Normal [facility] Comment on above: Performed By: #### C MP ####[facility] [address]vnmpzxqnu[address] [place], [place] [address]Dr. Farhat Leal AST [Catalytic activity/Vol] 18 U/L Normal 15-37 [facility] Comment on above: Performed By: #### C MP ####[facility] [address]awfpvoqtb[address] [place], [place] [address]Dr. Farhat Leal Bilirubin [Mass/Vol] 0.5 mg/dL Normal 0.2-1.0 [facility] Comment on above: Performed By: #### C MP ####[facility] [address]avs[address] [place] [id number]. Farhat Leal Calcium [Mass/Vol] 8.6 mg/dL Normal 8.5-10.1 [facility] Comment on above: Performed By: #### C MP ####[facility] Wgxrjcpauc[address] [place], [place] [address]Dr. Farhat Leal Chloride [Moles/Vol] 105 mmol/L Normal 98-107 [facility] Comment on above: Performed By: #### C MP ####[facility] Gpmftshqrn[address] [place] [phone]. Farhat Leal CO2 [Moles/Vol] 28.6 mmol/L Normal 21.0-32.0 [facility] Comment on above: Performed By: #### C MP ####[facility] Oryhkzhitm5910 [place] [phone]. Farhat Leal Creatinine [Mass/Vol] 1.47 mg/dL Critically high 0.70-1.30 [facility] Comment on above: Performed By: #### C MP ####[facility] Pgmqbornrt1606 [place] [phone]. Farhat Leal EGFR-AF BOLIVIAN 56 mL/min/1.73m2 Critically low >=60 [facility] Comment on above: Performed By: #### C MP ####[facility] Djejrqgwwy[address] [place], [place] [address]Dr. Farhat Elvis EGFR-NON AF BOLIVIAN 46 mL/min/1.73m2 Critically low >=60 [facility] Comment on above: Performed By: #### C MP ####[facility] Njagmbyxgr80[address] [place] [address]Dr. Farhat Leal Globulin (S) [Mass/Vol] 3.3 g/dL Normal [facility] Comment on above: Performed By: #### C MP ####[facility] Bdotdkjrwq7654 [place] [address]Dr. Farhat Leal Glucose [Mass/Vol] 164 mg/dL Critically high 74-106 [facility] Comment on above: Performed By: #### C MP ####[facility] Egtssvendy6612 [place] [phone]. Farhat Leal Potassium [Moles/Vol] 3.9 mmol/L Normal 3.5-5.1 [facility] Comment on above: Performed By: #### C MP ####[facility] Pjbluynwtp[address] [place], [place] [address]Dr. Farhat Leal Protein [Mass/Vol] 5.8 g/dL Critically low 6.4-8.2 [facility] Comment on above: Performed By: #### C MP ####[facility] Qbjdvjpoai2359 [place] [address]Dr. Farhat Leal Sodium [Moles/Vol] 142 mmol/L Normal 136-145 [facility] Comment on above: Performed By: #### C MP ####[facility] Gnhejmcdux2357 [place] [address]Dr. Farhat Leal Urea nitrogen [Mass/Vol] 53.0 mg/dL Critically high 7.0-18.0 [facility] Comment on above: Performed By: #### C MP ####[facility] Pftsztgpdn9[address] [place], [place] [address]Dr. Farhat Leal Urea nitrogen/Creatinine [Mass ratio] 36.1 mg/mg Normal [facility] Comment on above: Performed By: #### C MP ####[facility] Opsgzrhwmj06[address] [place], [place] [address]Dr. Farhat Leal PROTIMEon 05-29-2022 INR Coag (PPP) [Relative time] 2.41 {INR} Normal [facility] Comment on above: Performed By: #### P T ####[facility] Bhjcvzmpjg[address] [place], [place] [address]Dr. Farhat Leal INR GUIDELINES SEE BELOW Normal [facility] Comment on above: Result Comment: MALINA RED INR: 2.0 - 3.0 CONDITIONS NOT LISTED BELOW 2.5 - 3.5 FOR PROSTHETIC HEART VALVE REPLACEMENT 2.5 - 3.5 RECURRENT THROMBOSIS Performed By: #### P T ####[facility] Rjxufljmjo[address] [place], [place] [address]Dr. Farhat Leal PT Coag (PPP) [Time] 24.3 s Critically high 9.0-11.6 [facility] Comment on above: Performed By: #### P T ####[facility] Auiwzwtrhy095[address] [place], [place] [address]Dr. Farhat Leal FK506 (TACROLIMUS) WHOLE BLO ODon 05-25-2022 Tacrolimus (FK506), Blood 5.1 ng/mL Normal 2.0-20.0 [facility] Comment on above: Result Comment: Trou gh (immediately following transplant) 15.0 . Trough (steady state, 2 weeks or more after transplant): 3.0 - 8.0 . Performed by LC-MS/MS technology. Performed By: #### F K506T ####[facility] [address]uqjkcqkh34[address] [place] [address]Dr. Farhat Leal CBC AUTO DIFFon 05-22-2022 BASO # 0.0 103/ul Normal 0.0-0.1 [facility] Comment on above: Performed By: #### C BC ####[facility] Qwknbaortt[address] [place], [place] [address]Dr. Madelynlorri Leal Basophils/100 WBC (Bld) 0.5 % Normal 0.2-2.0 [facility] Comment on above: Performed By: #### C BC ####[facility] Ffxlwbevxz769[address] [place], [place] [address]Dr. Farhat Leal EO # 0.2 103/ul Normal 0.0-0.7 [facility] Comment on above: Performed By: #### C BC ####[facility] Sfkqsfemqm[address] [place], [place] [address]Dr. Madelynlorri Leal Eosinophils/100 WBC (Bld) 4.0 % Normal 0.9-7.0 [facility] Comment on above: Performed By: #### C BC ####[facility] Egoxtnjbmb[address] [place], [place] [address]Dr. Farhat Leal Erythrocyte distribution width (RBC) [Ratio] 15.5 % Critically high 11.0-15.0 [facility] Comment on above: Performed By: #### C BC ####[facility] Znapnfdtbg9[address] [place], [place] [address]Dr. Farhat Leal Hematocrit (Bld) [Volume fraction] 34.1 % Critically low 42.0-54.0 [facility] Comment on above: Performed By: #### C BC ####[facility] Dylxzoilig84[address] [place], [place] [address]Dr. Farhat Leal Hemoglobin (Bld) [Mass/Vol] 11.3 g/dL Critically low 14.0-18.0 [facility] Comment on above: Performed By: #### C BC ####[facility] Dxddmjztlu2455 [place] [phone]. Farhat Leal IG # 0.03 10e3/ul Normal 0.00-0.03 [facility] Comment on above: Performed By: #### C BC ####[facility] Pbblbvbtqe8864 [place] [phone]. Madelynlorri Leal IG % 0.5 % Normal 0.0-0.5 [facility] Comment on above: Performed By: #### C BC ####[facility] Korgkitohn2256 [place] [address]Dr. Farhat Elvis LYMPH # 2.1 103/ul Normal 1.2-3.8 [facility] Comment on above: Performed By: #### C BC ####[facility] Viwdvtjmwi4645 [place] [address]Dr. Farhat Leal Lymphocytes/100 WBC (Bld) 34.6 % Normal 20.5-60.0 [facility] Comment on above: Performed By: #### C BC ####[facility] Krcusmyfjk[address] [place], [place] [address]Dr. Madelynlorri Leal MANUAL DIFF REQ NO Normal [facility] Comment on above: Performed By: #### C BC ####[facility] Dtcmwoqdpf1523 [place] [address]Dr. Farhat Leal MCH (RBC) [Entitic mass] 30.3 pg Normal 25.9-34.0 [facility] Comment on above: Performed By: #### C BC ####[facility] Iqivmjztzo5959 [place] [address]Dr. Farhat Leal MCHC (RBC) [Mass/Vol] 33.1 g/dL Normal 29.9-35.2 [facility] Comment on above: Performed By: #### C BC ####[facility] Dmzzmmdguf84[address] [place], [place] [address]Dr. Madelynlorri Leal MCV (RBC) [Entitic vol] 91.4 fL Normal 80.0-94.0 [facility] Comment on above: Performed By: #### C BC ####[facility] Iwayfzhhrp5581 [place] [phone]. Farhat Leal MONO # 0.7 103/ul Normal 0.3-0.8 [facility] Comment on above: Performed By: #### C BC ####[facility] Mbjymumwbe4094 [place] [phone]. Farhat Leal Monocytes/100 WBC (Bld) 11.6 % Normal 1.7-12.0 [facility] Comment on above: Performed By: #### C BC ####[facility] Gisrstecab9953 [place] [phone]. Farhat Leal NEUT # 2.9 103/ul Normal 1.4-6.5 [facility] Comment on above: Performed By: #### C BC ####[facility] Quaiidnxhg2938 [place] [phone]. Farhat Leal Neutrophils/100 WBC (Bld) 48.8 % Normal 43.0-75.0 [facility] Comment on above: Performed By: #### C BC ####[facility] Mchlihwgxw8963 [place] [phone]. Farhat Leal Platelet mean volume (Bld) [Entitic vol] 10.9 fL Normal 9.5-13.5 [facility] Comment on above: Performed By: #### C BC ####[facility] Ntslaesylc1630 [place] [phone]. Farhat Leal PLT 186 103/ul Normal 150-450 [facility] Comment on above: Performed By: #### C BC ####[facility] Ucwpoxbkdq7461 [place] [phone]. Farhat Leal RBC 3.73 106/ul Critically low 4.70-6.10 [facility] Comment on above: Performed By: #### C BC ####[facility] Fosiafskvu5162 [place] [phone]. Farhat Leal WBC 6.0 103/ul Normal 4.0-11.0 [facility] Comment on above: Performed By: #### C BC ####[facility] Mbuhbmijwb7501 [place] [phone]. Farhat Leal PROF 14(COMP METB)on 023 Albumin [Mass/Vol] 2.7 g/dL Critically low 3.4-5.0 [facility] Comment on above: Performed By: #### C MP ####[facility] Nwxsitbnxr6272 [place] [address]Dr. Farhat Leal Albumin/Globulin [Mass ratio] 0.8 {ratio} Normal [facility] Comment on above: Performed By: #### C MP ####[facility] Ojzpfdbmdm3329 [place] [address]Dr. Farhat Leal ALP [Catalytic activity/Vol] 60 U/L Normal 46-116 [facility] Comment on above: Performed By: #### C MP ####[facility] Yopkjfzshm[address] [place], [place] [address]Dr. Farhat Leal ALT [Catalytic activity/Vol] 17 U/L Normal 16-63 [facility] Comment on above: Performed By: #### C MP ####[facility] Eanbcadwjx8967[address] [place], [place] [address]Dr. Farhat Leal Anion gap [Moles/Vol] 9.6 mmol/L Normal [facility] Comment on above: Performed By: #### C MP ####[facility] Onchfhfopy459[address] [place], [place] [address]Dr. Farhat Leal AST [Catalytic activity/Vol] 14 U/L Critically low 15-37 [facility] Comment on above: Performed By: #### C MP ####[facility] Ofjolblzlk[address] [place], [place] [address]Dr. Farhat Leal Bilirubin [Mass/Vol] 0.5 mg/dL Normal 0.2-1.0 [facility] Comment on above: Performed By: #### C MP ####[facility] Mvddgwilpv[address] [place], [place] [address]Dr. Farhat Leal Calcium [Mass/Vol] 8.4 mg/dL Critically low 8.5-10.1 [facility] Comment on above: Performed By: #### C MP ####[facility] Zmaefnfqvm5466 [place] [address]Dr. Farhat Leal Chloride [Moles/Vol] 104 mmol/L Normal 98-107 [facility] Comment on above: Performed By: #### C MP ####[facility] Ghwxwtxpyy22[address] [place], [place] [address]Dr. Madelynlorri Elvis CO2 [Moles/Vol] 27.2 mmol/L Normal 21.0-32.0 [facility] Comment on above: Performed By: #### C MP ####[facility] Jklslvabrc[address] [place], [place] [address]Dr. Farhat Leal Creatinine [Mass/Vol] 1.24 mg/dL Normal 0.70-1.30 [facility] Comment on above: Performed By: #### C MP ####[facility] Iaqugdeowb209[address] [place], [place] [address]Dr. Farhat Leal EGFR-AF BOLIVIAN >60 Normal >=60 [facility] Comment on above: Performed By: #### C MP ####[facility] Afabfzsxto08[address] [place], [place] [address]Dr. Farhat Leal EGFR-NON AF BOLIVIAN 57 mL/min/1.73m2 Critically low >=60 [facility] Comment on above: Performed By: #### C MP ####[facility] Nsrocxievj57[address] [place], [place] [address]Dr. Farhat Leal Globulin (S) [Mass/Vol] 3.3 g/dL Normal [facility] Comment on above: Performed By: #### C MP ####[facility] Zxvqwjcalk[address] [place], [place] [address]Dr. Farhat Leal Glucose [Mass/Vol] 275 mg/dL Critically high 74-106 [facility] Comment on above: Performed By: #### C MP ####[facility] Myahpykifz325[address] [place], [place] [address]Dr. Farhat Leal Potassium [Moles/Vol] 3.8 mmol/L Normal 3.5-5.1 [facility] Comment on above: Performed By: #### C MP ####[facility] Uuyuuzgppa39[address] [place], [place] [address]Dr. Farhat Leal Protein [Mass/Vol] 6.0 g/dL Critically low 6.4-8.2 Th e [facility] Comment on above: Performed By: #### C MP ####[facility] Giurvvajjw92[address] [place], [place] [address]Dr. Farhat Leal Sodium [Moles/Vol] 137 mmol/L Normal 136-145 [facility] Comment on above: Performed By: #### C MP ####[facility] Zmyiwbimkh1718[address] [place], [place] [address]Dr. Farhat Leal Urea nitrogen [Mass/Vol] 54.0 mg/dL Critically high 7.0-18.0 [facility] Comment on above: Performed By: #### C MP ####[facility] Tfxmcuygzj6[address] [place], [place] [address]Dr. Farhat Leal Urea nitrogen/Creatinine [Mass ratio] 43.5 mg/mg Normal [facility] Comment on above: Performed By: #### C MP ####[facility] Flwcmvdnoh267[address] [place], [place] [address]Dr. Farhat Leal PROTIMEon 05-22-2022 INR Coag (PPP) [Relative time] 2.27 {INR} Normal [facility] Comment on above: Performed By: #### P T ####[facility] Dcdktjsyyi154[address] [place], [place] [address]Dr. Farhat Leal INR GUIDELINES SEE BELOW Normal [facility] Comment on above: Result Comment: MALINA RED INR: 2.0 - 3.0 CONDITIONS NOT LISTED BELOW 2.5 - 3.5 FOR PROSTHETIC HEART VALVE REPLACEMENT 2.5 - 3.5 RECURRENT THROMBOSIS Performed By: #### P T ####[facility] Ccylhonxxe[address] [place], [place] [address]Dr. Farhat Leal PT Coag (PPP) [Time] 23.0 s Critically high 9.0-11.6 [facility] Comment on above: Performed By: #### P T ####[facility] Zurikcajbp24[address] [place], [place] [address]Dr. Farhat Leal FK506 (TACROLIMUS) WHOLE BLO ODon 05-19-2022 Tacrolimus (FK506), Blood 7.8 ng/mL Normal 2.0-20.0 [facility] Comment on above: Result Comment: Trou gh (immediately following transplant) 15.0 . Trough (steady state, 2 weeks or more after transplant): 3.0 - 8.0 . Performed by LC-MS/MS technology. Performed By: #### F K506T ####[facility] Hkihtkvafc[address] [place], [place] [address]Dr. Farhat Leal CBC AUTO DIFFon 05-15-2022 BASO # 0.0 103/ul Normal 0.0-0.1 [facility] Comment on above: Performed By: #### C BC ####[facility] Ltsfwkihtf[address] [place], [place] [address]Dr. Farhat Leal Basophils/100 WBC (Bld) 0.4 % Normal 0.2-2.0 [facility] Comment on above: Performed By: #### C BC ####[facility] Kdgvsebzmk264[address] [place], [place] [address]Dr. Farhat Leal EO # 0.2 103/ul Normal 0.0-0.7 [facility] Comment on above: Performed By: #### C BC ####[facility] Qjlgfjznwa[address] [place], [place] [address]Dr. Farhat Leal Eosinophils/100 WBC (Bld) 3.0 % Normal 0.9-7.0 [facility] Comment on above: Performed By: #### C BC ####[facility] Ouavqdnfcg7[address] [place], [place] [address]Dr. Farhat Leal Erythrocyte distribution width (RBC) [Ratio] 15.7 % Critically high 11.0-15.0 [facility] Comment on above: Performed By: #### C BC ####[facility] Bjeiwivtbl7[address] [place], [place] [address]Dr. Farhat Leal Hematocrit (Bld) [Volume fraction] 36.8 % Critically low 42.0-54.0 [facility] Comment on above: Performed By: #### C BC ####[facility] Hthamywmyu007[address] [place], [place] [address]Dr. Farhat Leal Hemoglobin (Bld) [Mass/Vol] 12.4 g/dL Critically low 14.0-18.0 [facility] Comment on above: Performed By: #### C BC ####[facility] Rwvkaxdaai0935 [place] [address]DrSkylar Leal IG # 0.01 10e3/ul Normal 0.00-0.03 [facility] Comment on above: Performed By: #### C BC ####[facility] Wzstiujzch7416 [place] [address]DrSkylar Leal IG % 0.1 % Normal 0.0-0.5 [facility] Comment on above: Performed By: #### C BC ####[facility] Tuqcokzpny[address] [place], [place] [address]DrSkylar Leal LYMPH # 2.4 103/ul Normal 1.2-3.8 [facility] Comment on above: Performed By: #### C BC ####[facility] Fkzmmrzyqv13[address] [place], [place] [address]DrSkylar Leal Lymphocytes/100 WBC (Bld) 35.6 % Normal 20.5-60.0 [facility] Comment on above: Performed By: #### C BC ####[facility] Dprevfzhqu[address] [place], [place] [address]DrSkylar Leal MANUAL DIFF REQ NO Normal [facility] Comment on above: Performed By: #### C BC ####[facility] Ofgweyjgnn5351 [place] [address]DrSkylar Leal MCH (RBC) [Entitic mass] 30.1 pg Normal 25.9-34.0 [facility] Comment on above: Performed By: #### C BC ####[facility] Dbsorntoxy7831 [place] [address]DrSkylar Leal MCHC (RBC) [Mass/Vol] 33.7 g/dL Normal 29.9-35.2 [facility] Comment on above: Performed By: #### C BC ####[facility] Nycpqyftva2991 [place] [address]DrSkylar Leal MCV (RBC) [Entitic vol] 89.3 fL Normal 80.0-94.0 [facility] Comment on above: Performed By: #### C BC ####[facility] Cxjbpgcvwh7137 [place] [address]DrSkylar Farhat Elvis MONO # 0.7 103/ul Normal 0.3-0.8 [facility] Comment on above: Performed By: #### C BC ####[facility] Xjbodnrchu1867 [place] [address]DrSkylar Leal Monocytes/100 WBC (Bld) 10.8 % Normal 1.7-12.0 [facility] Comment on above: Performed By: #### C BC ####[facility] Cmkfqurphg8817 [place] [address]Dr. Madelynlorri Leal NEUT # 3.4 103/ul Normal 1.4-6.5 [facility] Comment on above: Performed By: #### C BC ####[facility] Wbnckyhwvb4289 [place] [address]Dr. Farhat Leal Neutrophils/100 WBC (Bld) 50.1 % Normal 43.0-75.0 [facility] Comment on above: Performed By: #### C BC ####[facility] Otbgkqlvby[address] [place], [place] [address]DrSkylar Madelynlorri Leal Platelet mean volume (Bld) [Entitic vol] 10.2 fL Normal 9.5-13.5 [facility] Comment on above: Performed By: #### C BC ####[facility] Morsdjumae[address] [place], [place] [address]Dr. Farhat Leal PLT 190 103/ul Normal 150-450 [facility] Comment on above: Performed By: #### C BC ####[facility] Rjhwjyzivv[address] [place], [place] [address]DrSkylar Leal RBC 4.12 106/ul Critically low 4.70-6.10 [facility] Comment on above: Performed By: #### C BC ####[facility] Dtdksepwfi5895 [place] [phone] Leal WBC 6.8 103/ul Normal 4.0-11.0 [facility] Comment on above: Performed By: #### C BC ####[facility] Heuvvcoitf3741 [place] [address]DrSkylar Leal PROF 14(COMP METB)on 023 Albumin [Mass/Vol] 2.8 g/dL Critically low 3.4-5.0 [facility] Comment on above: Performed By: #### C MP ####[facility] Vpzyyndgca2044 [place] [address]DrSkylar Leal Albumin/Globulin [Mass ratio] 0.9 {ratio} Normal [facility] Comment on above: Performed By: #### C MP ####[facility] Vdwuxjmgci[address] [place], [place] [address]Dr. Farhat Leal ALP [Catalytic activity/Vol] 66 U/L Normal 46-116 [facility] Comment on above: Performed By: #### C MP ####[facility] Nzgwjyquxq75[address] [place], [place] [address]Dr. Farhat Leal ALT [Catalytic activity/Vol] 15 U/L Critically low 16-63 [facility] Comment on above: Performed By: #### C MP ####[facility] Aoydjaazps[address] [place], [place] [address]DrSkylar Leal Anion gap [Moles/Vol] 11.1 mmol/L Normal Th [facility] Comment on above: Performed By: #### C MP ####[facility] Rprfqlspzs[address] [place], [place] [address]DrSkylar Leal AST [Catalytic activity/Vol] 14 U/L Critically low 15-37 [facility] Comment on above: Performed By: #### C MP ####[facility] Ugfxhgylwk8979 [place] [address]DrSkylar Leal Bilirubin [Mass/Vol] 0.8 mg/dL Normal 0.2-1.0 [facility] Comment on above: Performed By: #### C MP ####[facility] Yqjamljgpu3411 [place] [address]DrSkylar Leal Calcium [Mass/Vol] 8.9 mg/dL Normal 8.5-10.1 [facility] Comment on above: Performed By: #### C MP ####[facility] Zqlnmpffkr3475 [place] [address]Dr. Farhat Leal Chloride [Moles/Vol] 101 mmol/L Normal 98-107 [facility] Comment on above: Performed By: #### C MP ####[facility] Bdyegholmp6105 [place] [phone]. Farhat Leal CO2 [Moles/Vol] 28.2 mmol/L Normal 21.0-32.0 [facility] Comment on above: Performed By: #### C MP ####[facility] Hifkylwasr8132 [place] [address]Dr. Farhat Leal Creatinine [Mass/Vol] 1.23 mg/dL Normal 0.70-1.30 [facility] Comment on above: Performed By: #### C MP ####[facility] Fuvsbcmyno8368 [place] [address]Dr. Farhat Leal EGFR-AF BOLIVIAN >60 Normal >=60 [facility] Comment on above: Performed By: #### C MP ####[facility] Zysgnctbjp5609 [place] [address]Dr. Farhat Leal EGFR-NON AF BOLIVIAN 57 mL/min/1.73m2 Critically low >=60 [facility] Comment on above: Performed By: #### C MP ####[facility] Zngrvqkcpd1124 [place] [address]Dr. Farhat Leal Globulin (S) [Mass/Vol] 3.2 g/dL Normal [facility] Comment on above: Performed By: #### C MP ####[facility] Gwmrkavgox2002 [place] [phone]. Farhat Leal Glucose [Mass/Vol] 333 mg/dL Critically high 74-106 [facility] Comment on above: Performed By: #### C MP ####[facility] Ujatrcolco8426 [place] [address]Dr. Farhat Leal Potassium [Moles/Vol] 4.3 mmol/L Normal 3.5-5.1 [facility] Comment on above: Performed By: #### C MP ####[facility] Sgzvulwqzo2609 [place] [address]Dr. Farhat Leal Protein [Mass/Vol] 6.0 g/dL Critically low 6.4-8.2 Th e [facility] Comment on above: Performed By: #### C MP ####[facility] Dokuhsrwjg2050 [place] [address]Dr. Farhat Leal Sodium [Moles/Vol] 136 mmol/L Normal 136-145 [facility] Comment on above: Performed By: #### C MP ####[facility] Rejiicblcf[address] [place], [place] [address]Dr. Farhat Leal Urea nitrogen [Mass/Vol] 58.0 mg/dL Critically high 7.0-18.0 [facility] Comment on above: Performed By: #### C MP ####[facility] Knocqveste[address] [place], [place] [address]Dr. Farhat Leal Urea nitrogen/Creatinine [Mass ratio] 47.2 mg/mg Normal [facility] Comment on above: Performed By: #### C MP ####[facility] Jodljabakh[address] [place], [place] [address]Dr. Farhat Leal PROTIMEon 05-13-2022 INR Coag (PPP) [Relative time] 3.51 {INR} Normal [facility] Comment on above: Performed By: #### P T ####[facility] [address]atgtyawvh[address] [place], [place] [address]Dr. Farhat Leal INR GUIDELINES SEE BELOW Normal [facility] Comment on above: Result Comment: MALINA RED INR: 2.0 - 3.0 CONDITIONS NOT LISTED BELOW 2.5 - 3.5 FOR PROSTHETIC HEART VALVE REPLACEMENT 2.5 - 3.5 RECURRENT THROMBOSIS Performed By: #### P T ####[facility] Hpkvvxetie[address] [place], [place] [address]Dr. Farhat Leal PT Coag (PPP) [Time] 34.7 s Critically high 9.0-11.6 [facility] Comment on above: Performed By: #### P T ####[facility] Mufeysmptt[address] [place], [place] [address]Dr. Farhat Leal FK506 (TACROLIMUS) WHOLE BLO ODon 05-11-2022 Tacrolimus (FK506), Blood 14.4 ng/mL Normal 2.0-20.0 [facility] Comment on above: Result Comment: Trou gh (immediately following transplant) 15.0 . Trough (steady state, 2 weeks or more after transplant): 3.0 - 8.0 . Performed by LC-MS/MS technology. Performed By: #### F K506T ####[facility] [address]dmr[address] [place], [place] [address]Dr. Farhat Leal CBC AUTO DIFFon 05-08-2022 BASO # 0.0 103/ul Normal 0.0-0.1 [facility] Comment on above: Performed By: #### C BC ####[facility] Iibntpowgv[address] [place], [place] [address]Dr. Farhat Leal Basophils/100 WBC (Bld) 0.5 % Normal 0.2-2.0 [facility] Comment on above: Performed By: #### C BC ####[facility] Feqbkfunkn[address] [place], [place] [address]Dr. Farhat Leal EO # 0.2 103/ul Normal 0.0-0.7 [facility] Comment on above: Performed By: #### C BC ####[facility] Icfpufipuu[address] [place], [place] [address]Dr. Farhat Leal Eosinophils/100 WBC (Bld) 2.9 % Normal 0.9-7.0 [facility] Comment on above: Performed By: #### C BC ####[facility] Oximkqcbob235[address] [place], [place] [address]Dr. Farhat Leal Erythrocyte distribution width (RBC) [Ratio] 16.0 % Critically high 11.0-15.0 [facility] Comment on above: Performed By: #### C BC ####[facility] Epebbouxfi[address] [place], [place] [address]Dr. Farhat Leal Hematocrit (Bld) [Volume fraction] 35.7 % Critically low 42.0-54.0 [facility] Comment on above: Performed By: #### C BC ####[facility] Jfjhiocxif[address] [place] [phone]. Farhat Leal Hemoglobin (Bld) [Mass/Vol] 11.9 g/dL Critically low 14.0-18.0 [facility] Comment on above: Performed By: #### C BC ####[facility] Ghvotopmba6758 [place] [phone]. Farhat Leal IG # 0.03 10e3/ul Normal 0.00-0.03 [facility] Comment on above: Performed By: #### C BC ####[facility] Vpyswmvcnn8579 [place] [phone]. Farhat Leal IG % 0.5 % Normal 0.0-0.5 [facility] Comment on above: Performed By: #### C BC ####[facility] L[address]ysxwrip[address] [place] [address]Dr. Farhat Leal LYMPH # 2.4 103/ul Normal 1.2-3.8 [facility] Comment on above: Performed By: #### C BC ####[facility] Folilvfrcp5516 [place] [phone]. Farhat Leal Lymphocytes/100 WBC (Bld) 37.8 % Normal 20.5-60.0 [facility] Comment on above: Performed By: #### C BC ####[facility] Yqtyhzsqjg5677 [place] [phone]. Farhat Leal MANUAL DIFF REQ NO Normal [facility] Comment on above: Performed By: #### C BC ####[facility] Jmdvjcksyu[address] [place], [place] [address]Dr. Farhat Leal MCH (RBC) [Entitic mass] 30.4 pg Normal 25.9-34.0 [facility] Comment on above: Performed By: #### C BC ####[facility] Qsygazlpdh1610 [place] [phone]. Farhat Leal MCHC (RBC) [Mass/Vol] 33.3 g/dL Normal 29.9-35.2 [facility] Comment on above: Performed By: #### C BC ####[facility] Cqqglpcexd0798 [place] [phone]. Farhat Leal MCV (RBC) [Entitic vol] 91.1 fL Normal 80.0-94.0 [facility] Comment on above: Performed By: #### C BC ####[facility] Lcouqkmwdq7267 [place] [phone]. Farhat Leal MONO # 0.7 103/ul Normal 0.3-0.8 [facility] Comment on above: Performed By: #### C BC ####[facility] Tumzudmlfk0344 [place] [phone]. Farhat Leal Monocytes/100 WBC (Bld) 11.1 % Normal 1.7-12.0 [facility] Comment on above: Performed By: #### C BC ####[facility] Zfmgcvxtgz53[address] [place], [place] [address]Dr. Farhat Leal NEUT # 2.9 103/ul Normal 1.4-6.5 [facility] Comment on above: Performed By: #### C BC ####[facility] Iwrmergyqo[address] [place], [place] [address]Dr. Farhat Leal Neutrophils/100 WBC (Bld) 47.2 % Normal 43.0-75.0 [facility] Comment on above: Performed By: #### C BC ####[facility] Wmsmxihqde207[address] [place], [place] [address]Dr. Farhat Leal Platelet mean volume (Bld) [Entitic vol] 11.0 fL Normal 9.5-13.5 [facility] Comment on above: Performed By: #### C BC ####[facility] Kdrptqggnr87[address] [place], [place] [address]Dr. Farhat Leal PLT 191 103/ul Normal 150-450 [facility] Comment on above: Performed By: #### C BC ####[facility] Tigcctcmlr59[address] [place], [place] [address]Dr. Farhat Leal RBC 3.92 106/ul Critically low 4.70-6.10 [facility] Comment on above: Performed By: #### C BC ####[facility] Bctcsxmugg2190 [place] [address]Dr. Farhat Leal WBC 6.2 103/ul Normal 4.0-11.0 [facility] Comment on above: Performed By: #### C BC ####[facility] Hwazxxagmv80[address] [place] [address]Dr. Farhat Leal MAGNESIUMon 05-08-2022 Magnesium [Mass/Vol] 1.9 mg/dL Normal 1.8-2.4 [facility] Comment on above: Performed By: #### P HOS, MG ####[facility] Ltceofzesy58[address] [place] [address]Dr. Farhat Leal PHOSPHORUSon 05-08-2022 Phosphate [Mass/Vol] 4.5 mg/dL Normal 2.6-4.7 [facility] Comment on above: Performed By: #### P HOS, MG ####[facility] Tefzrqryes[address] [place], [place] [address]Dr. Farhat Leal PROF 14(COMP METB)on 023 Albumin [Mass/Vol] 2.9 g/dL Critically low 3.4-5.0 [facility] Comment on above: Performed By: #### C MP ####[facility] Senuvxeecn97[address] [place], [place] [address]Dr. Farhat Leal Albumin/Globulin [Mass ratio] 0.9 {ratio} Normal [facility] Comment on above: Performed By: #### C MP ####[facility] Inmmzwzwzw[address] [place], [place] [address]Dr. Farhat Leal ALP [Catalytic activity/Vol] 70 U/L Normal 46-116 [facility] Comment on above: Performed By: #### C MP ####[facility] Tbefcnzrog0498 [place] [address]Dr. Farhat Leal ALT [Catalytic activity/Vol] 13 U/L Critically low 16-63 [facility] Comment on above: Performed By: #### C MP ####[facility] Cyzlkilqbb8413 [place] [address]Dr. Farhat Leal Anion gap [Moles/Vol] 14.6 mmol/L Normal [facility] Comment on above: Performed By: #### C MP ####[facility] Yabprqkvzh4022 [place] [address]Dr. Farhat Leal AST [Catalytic activity/Vol] 17 U/L Normal 15-37 [facility] Comment on above: Performed By: #### C MP ####[facility] Oqejqxaxzz2665 [place] [phone]. Farhat Leal Bilirubin [Mass/Vol] 0.8 mg/dL Normal 0.2-1.0 [facility] Comment on above: Performed By: #### C MP ####[facility] Ednviegjsd3459 [place] [address]Dr. Farhat Leal Calcium [Mass/Vol] 8.9 mg/dL Normal 8.5-10.1 [facility] Comment on above: Performed By: #### C MP ####[facility] Cyczzsnuem23[address] [place], [place] [address]Dr. Farhat Leal Chloride [Moles/Vol] 102 mmol/L Normal 98-107 [facility] Comment on above: Performed By: #### C MP ####[facility] Clibijbthu7[address] [place], [place] [address]Dr. Farhat Leal CO2 [Moles/Vol] 22.9 mmol/L Normal 21.0-32.0 [facility] Comment on above: Performed By: #### C MP ####[facility] Yxhegxrurc[address] [place], [place] [address]Dr. Farhat Leal Creatinine [Mass/Vol] 1.20 mg/dL Normal 0.70-1.30 [facility] Comment on above: Performed By: #### C MP ####[facility] Oqafmpkeui77[address] [place] [address]Dr. Farhat Leal EGFR-AF BOLIVIAN >60 Normal >=60 [facility] Comment on above: Performed By: #### C MP ####[facility] Jrqujkfjuc3143 [place] [address]Dr. Farhat Leal EGFR-NON AF BOLIVIAN 59 mL/min/1.73m2 Critically low >=60 [facility] Comment on above: Performed By: #### C MP ####[facility] Pqdixamico0164 [place] [phone]. Farhat Leal Globulin (S) [Mass/Vol] 3.1 g/dL Normal [facility] Comment on above: Performed By: #### C MP ####[facility] Nwamwoxxyz6925 [place] [phone]. Farhat Leal Glucose [Mass/Vol] 447 mg/dL Critically high 74-106 [facility] Comment on above: Performed By: #### C MP ####[facility] Lmsmlvcxkw0944 [place] [phone]. Farhat Leal Potassium [Moles/Vol] 4.5 mmol/L Normal 3.5-5.1 [facility] Comment on above: Performed By: #### C MP ####[facility] Bjqsntaieb2751 [place] [address]Dr. Farhat Leal Protein [Mass/Vol] 6.0 g/dL Critically low 6.4-8.2 [facility] Comment on above: Performed By: #### C MP ####[facility] Ityulqeagj[address] [place], [place] [address]Dr. Farhat Leal Sodium [Moles/Vol] 135 mmol/L Critically low 136-145 [facility] Comment on above: Performed By: #### C MP ####[facility] Vsnjleiefj0252 [place] [address]Dr. Farhat Leal Urea nitrogen [Mass/Vol] 52.0 mg/dL Critically high 7.0-18.0 [facility] Comment on above: Performed By: #### C MP ####[facility] Brpumxbcxj4897 [place] [address]Dr. Farhat Leal Urea nitrogen/Creatinine [Mass ratio] 43.3 mg/mg Normal [facility] Comment on above: Performed By: #### C MP ####[facility] Jfulcuursh6234 [place] [address]Dr. Farhat Elvis PROTIMEon 05-06-2022 INR Coag (PPP) [Relative time] 2.25 {INR} Normal [facility] Comment on above: Performed By: #### P T ####[facility] Bjcjebyady6891 [place] [address]DrSkylar Leal INR GUIDELINES SEE BELOW Normal [facility] Comment on above: Result Comment: MALINA RED INR: 2.0 - 3.0 CONDITIONS NOT LISTED BELOW 2.5 - 3.5 FOR PROSTHETIC HEART VALVE REPLACEMENT 2.5 - 3.5 RECURRENT THROMBOSIS Performed By: #### P T ####[facility] Psclnlhmxz199[address] [place], [place] [address]Dr. Farhat Leal PT Coag (PPP) [Time] 22.8 s Critically high 9.0-11.6 [facility] Comment on above: Performed By: #### P T ####[facility] Kckgehleuj[address] [place], [place] [address]Dr. Farhat Leal FK506 (TACROLIMUS) WHOLE BLO ODon 05-04-2022 Tacrolimus (FK506), Blood 10.4 ng/mL Normal 2.0-20.0 [facility] Comment on above: Result Comment: Trou gh (immediately following transplant) 15.0 . Trough (steady state, 2 weeks or more after transplant): 3.0 - 8.0 . Performed by LC-MS/MS technology. Performed By: #### F K506T ####[facility] Bjouwgvvob[address] [place], [place] [address]DrSkylar Leal CBC AUTO DIFFon 05-01-2022 BASO # 0.1 103/ul Normal 0.0-0.1 [facility] Comment on above: Performed By: #### C BC ####[facility] Awlegbiybd[address] [place], [place] [address]Dr. Farhat Leal Basophils/100 WBC (Bld) 0.7 % Normal 0.2-2.0 [facility] Comment on above: Performed By: #### C BC ####[facility] Cfqlfdbwgs30[address] [place], [place] [address]Dr. Farhat Leal EO # 0.2 103/ul Normal 0.0-0.7 [facility] Comment on above: Performed By: #### C BC ####[facility] Ifxvnqrvsz6546 [place] [phone]. Farhat Leal Eosinophils/100 WBC (Bld) 3.2 % Normal 0.9-7.0 [facility] Comment on above: Performed By: #### C BC ####[facility] Ilsxnzebpq6552 [place] [phone]. Farhat Leal Erythrocyte distribution width (RBC) [Ratio] 16.4 % Critically high 11.0-15.0 [facility] Comment on above: Performed By: #### C BC ####[facility] Hwmjexjfdn[address] [place], [place] [address]Dr. Farhat Leal Hematocrit (Bld) [Volume fraction] 35.1 % Critically low 42.0-54.0 [facility] Comment on above: Performed By: #### C BC ####[facility] Vyeqajddnv[address] [place], [place] [address]Dr. Farhat Leal Hemoglobin (Bld) [Mass/Vol] 11.6 g/dL Critically low 14.0-18.0 [facility] Comment on above: Performed By: #### C BC ####[facility] Qkfnmjgphn368[address] [place], [place] [address]Dr. Farhat Leal IG # 0.03 10e3/ul Normal 0.00-0.03 [facility] Comment on above: Performed By: #### C BC ####[facility] Sztwsowott[address] [place], [place] [address]Dr. Farhat Leal IG % 0.4 % Normal 0.0-0.5 [facility] Comment on above: Performed By: #### C BC ####[facility] Yzlyolejix65[address] [place], [place] [address]Dr. Farhat Leal LYMPH # 2.4 103/ul Normal 1.2-3.8 [facility] Comment on above: Performed By: #### C BC ####[facility] Uypyhgspra138[address] [place], [place] [address]Dr. Farhat Leal Lymphocytes/100 WBC (Bld) 35.1 % Normal 20.5-60.0 [facility] Comment on above: Performed By: #### C BC ####[facility] Ufhofivyvt8323 [place] [phone]. Farhat Leal MANUAL DIFF REQ NO Normal [facility] Comment on above: Performed By: #### C BC ####[facility] Wftdzymrom3050 [place] [phone]. Farhat Leal MCH (RBC) [Entitic mass] 29.4 pg Normal 25.9-34.0 [facility] Comment on above: Performed By: #### C BC ####[facility] Vgrmoklran[address] [place], [place] [address]Dr. Farhat Leal MCHC (RBC) [Mass/Vol] 33.0 g/dL Normal 29.9-35.2 [facility] Comment on above: Performed By: #### C BC ####[facility] Dpvhpbbmma420[address] [place], [place] [address]Dr. Farhat Leal MCV (RBC) [Entitic vol] 88.9 fL Normal 80.0-94.0 [facility] Comment on above: Performed By: #### C BC ####[facility] Mfjwschzsi06[address] [place], [place] [address]Dr. Farhat Leal MONO # 0.7 103/ul Normal 0.3-0.8 [facility] Comment on above: Performed By: #### C BC ####[facility] Xdqkrdepld135[address] [place], [place] [address]Dr. Farhat Elvis Monocytes/100 WBC (Bld) 9.6 % Normal 1.7-12.0 [facility] Comment on above: Performed By: #### C BC ####[facility] Eztdoifygy[address] [place], [place] [address]Dr. Farhat Leal NEUT # 3.5 103/ul Normal 1.4-6.5 [facility] Comment on above: Performed By: #### C BC ####[facility] Gicodhhcgq[address] [place], [place] [address]Dr. Farhat Leal Neutrophils/100 WBC (Bld) 51.0 % Normal 43.0-75.0 [facility] Comment on above: Performed By: #### C BC ####[facility] Whixeriiwf4881 [place] [phone]. Farhat Leal Platelet mean volume (Bld) [Entitic vol] 10.3 fL Normal 9.5-13.5 [facility] Comment on above: Performed By: #### C BC ####[facility] Afxgujqcfm9454 [place] [phone]. Farhat Leal PLT 184 103/ul Normal 150-450 [facility] Comment on above: Performed By: #### C BC ####[facility] Wzxcvnzqai7412 [place] [phone]. Farhat Leal RBC 3.95 106/ul Critically low 4.70-6.10 [facility] Comment on above: Performed By: #### C BC ####[facility] Mxlkukqnha2026 [place] [address]Dr. Farhat Leal WBC 7.0 103/ul Normal 4.0-11.0 [facility] Comment on above: Performed By: #### C BC ####[facility] Kqmvchabpw5854 [place] [address]Dr. Farhat Leal PROF 14(COMP METB)on 023 Albumin [Mass/Vol] 2.6 g/dL Critically low 3.4-5.0 [facility] Comment on above: Performed By: #### C MP ####[facility] Obkisvlqzc1550 [place] [address]Dr. Farhat Leal Albumin/Globulin [Mass ratio] 0.9 {ratio} Normal [facility] Comment on above: Performed By: #### C MP ####[facility] Vszrctglje9174 [place] [address]Dr. Farhat Leal ALP [Catalytic activity/Vol] 53 U/L Normal 46-116 [facility] Comment on above: Performed By: #### C MP ####[facility] Jckjwkdxdt5232 [place] [address]Dr. Farhat Leal ALT [Catalytic activity/Vol] 17 U/L Normal 16-63 [facility] Comment on above: Performed By: #### C MP ####[facility] Bpeihxwgww5163 [place] [phone]. Farhat Leal Anion gap [Moles/Vol] 10.0 mmol/L Normal [facility] Comment on above: Performed By: #### C MP ####[facility] Qullwuhzji7169 [place] [phone]. Farhat Leal AST [Catalytic activity/Vol] 19 U/L Normal 15-37 [facility] Comment on above: Performed By: #### C MP ####[facility] Mhwwviyose9140 [place] [phone]. Farhat Leal Bilirubin [Mass/Vol] 0.5 mg/dL Normal 0.2-1.0 [facility] Comment on above: Performed By: #### C MP ####[facility] Fsijczlnwd[address] [place], [place] [address]Dr. Farhat Leal Calcium [Mass/Vol] 8.4 mg/dL Critically low 8.5-10.1 [facility] Comment on above: Performed By: #### C MP ####[facility] Wqiomjcmhb0921 [place] [phone]. Farhat Leal Chloride [Moles/Vol] 108 mmol/L Critically high 98-107 [facility] Comment on above: Performed By: #### C MP ####[facility] Ggohnsuzng[address] [place], [place] [address]Dr. Farhat Leal CO2 [Moles/Vol] 26.9 mmol/L Normal 21.0-32.0 [facility] Comment on above: Performed By: #### C MP ####[facility] Ctazxbkcmj2713 [place] [phone]. Farhat Leal Creatinine [Mass/Vol] 1.20 mg/dL Normal 0.70-1.30 [facility] Comment on above: Performed By: #### C MP ####[facility] Vlskrmruaz0095 [place] [phone]. Farhat Leal EGFR-AF BOLIVIAN >60 Normal >=60 [facility] Comment on above: Performed By: #### C MP ####[facility] Dwqsoncfwu8498 [place] [phone]. Farhat Leal EGFR-NON AF BOLIVIAN 59 mL/min/1.73m2 Critically low >=60 [facility] Comment on above: Performed By: #### C MP ####[facility] Xyeyynwcty3012 [place] [address]Dr. Farhat Leal Globulin (S) [Mass/Vol] 3.0 g/dL Normal [facility] Comment on above: Performed By: #### C MP ####[facility] Cwisqtdfwh5925 [place] [address]Dr. Farhat Leal Glucose [Mass/Vol] 213 mg/dL Critically high 74-106 [facility] Comment on above: Performed By: #### C MP ####[facility] Uivorzjviy4848 [place] [address]Dr. Farhat Leal Potassium [Moles/Vol] 3.9 mmol/L Normal 3.5-5.1 [facility] Comment on above: Performed By: #### C MP ####[facility] Zefnhcjxzb6383 [place] [address]Dr. Farhat Leal Protein [Mass/Vol] 5.6 g/dL Critically low 6.4-8.2 [facility] Comment on above: Performed By: #### C MP ####[facility] Pxarsqdhhk[address] [place], [place] [address]Dr. Farhat Leal Sodium [Moles/Vol] 141 mmol/L Normal 136-145 [facility] Comment on above: Performed By: #### C MP ####[facility] Hzraranduz8356 [place] [address]Dr. Farhat Leal Urea nitrogen [Mass/Vol] 61.0 mg/dL Critically high 7.0-18.0 [facility] Comment on above: Performed By: #### C MP ####[facility] Heyedykkvt4222 [place] [address]Dr. Farhat Leal Urea nitrogen/Creatinine [Mass ratio] 50.8 mg/mg Normal [facility] Comment on above: Performed By: #### C MP ####[facility] Trxbvowvsh[address] [place], [place] [address]Dr. Farhat Elvis FK506 (TACROLIMUS) WHOLE BLO ODon 04-27-2022 Tacrolimus (FK506), Blood 16.5 ng/mL Normal 2.0-20.0 [facility] Comment on above: Result Comment: Trou gh (immediately following transplant) 15.0 . Trough (steady state, 2 weeks or more after transplant): 3.0 - 8.0 . Performed by LC-MS/MS technology. Performed By: #### F K506T ####[facility] Ybxvalchjx8[address] [place], [place] [address]Dr. Farhat Elvis CBC AUTO DIFFon 04-24-2022 BASO # 0.0 103/ul Normal 0.0-0.1 [facility] Comment on above: Performed By: #### C BC ####[facility] Xraofsljmb[address] [place], [place] [address]Dr. Farhat Leal Basophils/100 WBC (Bld) 0.5 % Normal 0.2-2.0 [facility] Comment on above: Performed By: #### C BC ####[facility] Bnasltfnol[address] [place], [place] [address]Dr. Farhat Leal EO # 0.2 103/ul Normal 0.0-0.7 [facility] Comment on above: Performed By: #### C BC ####[facility] Jayhgkwuxy86[address] [place], [place] [address]Dr. Farhat Leal Eosinophils/100 WBC (Bld) 3.1 % Normal 0.9-7.0 [facility] Comment on above: Performed By: #### C BC ####[facility] Mcloxawnnp[address] [place], [place] [address]Dr. Farhat Leal Erythrocyte distribution width (RBC) [Ratio] 16.3 % Critically high 11.0-15.0 [facility] Comment on above: Performed By: #### C BC ####[facility] Ctpxngbvon[address] [place], [place] [address]Dr. Farhat Leal Hematocrit (Bld) [Volume fraction] 34.0 % Critically low 42.0-54.0 [facility] Comment on above: Performed By: #### C BC ####[facility] Tuhbdyxpes1579 [place] [phone]. Farhat Leal Hemoglobin (Bld) [Mass/Vol] 11.6 g/dL Critically low 14.0-18.0 [facility] Comment on above: Performed By: #### C BC ####[facility] Oefkgkkrth3438 [place] [address]Dr. Farhat Leal IG # 0.02 10e3/ul Normal 0.00-0.03 [facility] Comment on above: Performed By: #### C BC ####[facility] Odnyfowons[address] [place], [place] [address]Dr. Farhat Leal IG % 0.4 % Normal 0.0-0.5 [facility] Comment on above: Performed By: #### C BC ####[facility] Luxfksjprj[address] [place], [place] [address]Dr. Farhat Leal LYMPH # 2.2 103/ul Normal 1.2-3.8 [facility] Comment on above: Performed By: #### C BC ####[facility] Etftmfrnik[address] [place], [place] [address]Dr. Farhat Leal Lymphocytes/100 WBC (Bld) 38.8 % Normal 20.5-60.0 [facility] Comment on above: Performed By: #### C BC ####[facility] Jwlyhulovj[address] [place], [place] [address]Dr. Farhat Leal MANUAL DIFF REQ NO Normal [facility] Comment on above: Performed By: #### C BC ####[facility] Pcovirbqyg[address] [place], [place] [address]Dr. Farhat Leal MCH (RBC) [Entitic mass] 30.1 pg Normal 25.9-34.0 [facility] Comment on above: Performed By: #### C BC ####[facility] Oyarqyahht[address] [place], [place] [address]Dr. Farhat Leal MCHC (RBC) [Mass/Vol] 34.1 g/dL Normal 29.9-35.2 [facility] Comment on above: Performed By: #### C BC ####[facility] Xndkfgterd8366 [place] [phone]. Farhat Leal MCV (RBC) [Entitic vol] 88.1 fL Normal 80.0-94.0 [facility] Comment on above: Performed By: #### C BC ####[facility] Pknawlfdal7327 [place] [phone]. Farhat Leal MONO # 0.6 103/ul Normal 0.3-0.8 [facility] Comment on above: Performed By: #### C BC ####[facility] Nanxqnxhvf6875 [place] [phone]. Farhat Leal Monocytes/100 WBC (Bld) 10.8 % Normal 1.7-12.0 [facility] Comment on above: Performed By: #### C BC ####[facility] Igcrrbzvyi[address] [place], [place] [address]Dr. Farhat Leal NEUT # 2.6 103/ul Normal 1.4-6.5 [facility] Comment on above: Performed By: #### C BC ####[facility] [place] [facility] [address] [place], [place] [address]Dr. Farhat Leal Neutrophils/100 WBC (Bld) 46.4 % Normal 43.0-75.0 [facility] [place] [facility] Comment on above: Performed By: #### C BC ####[facility] [place] [facility] [address] [place] [id number]. Farhat Leal Platelet mean volume (Bld) [Entitic vol] 10.9 fL Normal 9.5-13.5 [facility] [place] [facility] Comment on above: Performed By: #### C BC ####[facility] [place] [facility] Y[address]weeewlbx[address] [place] [id number]. Farhat Leal PLT 159 103/ul Normal 150-450 [facility] [place] [facility] Comment on above: Performed By: #### C BC ####[facility] [place] [facility] Jtwnmwgurq48[address] [place] [id number]. Farhat Leal RBC 3.86 106/ul Critically low 4.70-6.10 [facility] Comment on above: Performed By: #### C BC ####[facility] [place] [facility] [address] [place] [address]Dr. Farhat Leal WBC 5.6 103/ul Normal 4.0-11.0 [facility] [place] [facility] Comment on above: Performed By: #### C BC ####[facility] [place] [facility] [address] [place] [address]DrSkylar Leal PROTIMEon 04-24-2022 INR Coag (PPP) [Relative time] 3.23 {INR} Normal [facility] [place] [facility] Comment on above: Performed By: #### P T ####[facility] [place] [facility] Vub[address] [place], [place] [address]DrSkylar Leal INR GUIDELINES SEE BELOW Normal The [facility] Comment on above: Result Comment: MALINA RED INR: 2.0 - 3.0 CONDITIONS NOT LISTED BELOW 2.5 - 3.5 FOR PROSTHETIC HEART VALVE REPLACEMENT 2.5 - 3.5 RECURRENT THROMBOSIS Performed By: #### P T ####[facility] [place] [facility] Kidilgefwk[address] [place], [place] [address]DrSkylar Leal PT Coag (PPP) [Time] 32.0 s Critically high 9.0-11.6 [facility] [place] [facility] Comment on above: Performed By: #### P T ####[facility] [place] [facility] [address]sss[address] [place], [place] [address]DrSkylar Leal FK506 (TACROLIMUS) WHOLE BLO ODon 04-20-2022 Tacrolimus (FK506), Blood 13.9 ng/mL Normal 2.0-20.0 [facility] [place] [facility] Comment on above: Result Comment: Trou gh (immediately following transplant) 15.0 . Trough (steady state, 2 weeks or more after transplant): 3.0 - 8.0 . Performed by LC-MS/MS technology. Performed By: #### F K506T ####[facility] [place] [facility] Om[address]dtkyfq[address] [place], [place] [address]DrSkylar Leal CBC AUTO DIFFon 04-17-2022 BASO # 0.0 103/ul Normal 0.0-0.1 [facility] [place] [facility] Comment on above: Performed By: #### C BC ####[facility] [place] [facility] Did[address] [place], [place] [address]DrSkylar Leal Basophils/100 WBC (Bld) 0.4 % Normal 0.2-2.0 [facility] [place] [facility] Comment on above: Performed By: #### C BC ####[facility] [place] [facility] Dfdzenkqol[address] [place], [place] [address]Dr. Farhat Leal EO # 0.2 103/ul Normal 0.0-0.7 [facility] [place] [facility] Comment on above: Performed By: #### C BC ####[facility] [place] [facility] Wrmat[address]ijw[address] [place], [place] [address]Dr. Farhat Leal Eosinophils/100 WBC (Bld) 2.8 % Normal 0.9-7.0 [facility] [place] [facility] Comment on above: Performed By: #### C BC ####[facility] [place] [facility] Q[address]uy[address]shvu[address] [place], [place] [address]Dr. Farhat Leal Erythrocyte distribution width (RBC) [Ratio] 16.1 % Critically high 11.0-15.0 [facility] [place] [facility] Comment on above: Performed By: #### C BC ####[facility] [place] [facility] [address] [place], [place] [address]Dr. Farhat Leal Hematocrit (Bld) [Volume fraction] 35.7 % Critically low 42.0-54.0 [facility] [place] [facility] Comment on above: Performed By: #### C BC ####[facility] [place] [facility] Klbalsvj[address] [place], [place] [address]Dr. Farhat Leal Hemoglobin (Bld) [Mass/Vol] 12.2 g/dL Critically low 14.0-18.0 [facility] [place] [facility] Comment on above: Performed By: #### C BC ####[facility] [place] [facility] [address] [place], [place] [address]Dr. Farhat Leal IG # 0.03 10e3/ul Normal 0.00-0.03 [facility] [place] [facility] Comment on above: Performed By: #### C BC ####[facility] [place] [facility] Swcjrlgvhf[address] [place], [place] [address]Dr. Farhat Leal IG % 0.4 % Normal 0.0-0.5 [facility] [place] [facility] Comment on above: Performed By: #### C BC ####[facility] [place] [facility] Ctbyaz[address]un[address] [place], [place] [address]Dr. Farhat Leal LYMPH # 2.4 103/ul Normal 1.2-3.8 [facility] [place] [facility] Comment on above: Performed By: #### C BC ####[facility] [place] [facility] Ojtdyawacf60[address] [place] [id number]. Madelynlorri Leal Lymphocytes/100 WBC (Bld) 36.1 % Normal 20.5-60.0 [facility] [place] [facility] Comment on above: Performed By: #### C BC ####[facility] [place] [facility] [address]bmkglwx3[address] [place] [address]Dr. Farhat Leal MANUAL DIFF REQ NO Normal [facility] Comment on above: Performed By: #### C BC ####[facility] [place] [facility] [address]bsx27[address] [place] [address]Dr. Farhat Leal MCH (RBC) [Entitic mass] 30.3 pg Normal 25.9-34.0 [facility] [place] [facility] Comment on above: Performed By: #### C BC ####[facility] [place] [facility] Al[address]xydz25[address] [place] [address]Dr. Farhat Leal MCHC (RBC) [Mass/Vol] 34.2 g/dL Normal 29.9-35.2 [facility] [place] [facility] Comment on above: Performed By: #### C BC ####[facility] [place] [facility] Ibqtwdjujo6[address] [place] [address]Dr. Farhat Leal MCV (RBC) [Entitic vol] 88.6 fL Normal 80.0-94.0 [facility] [place] [facility] Comment on above: Performed By: #### C BC ####[facility] [place] [facility] Vghsvktcqs7262 [place] [address]Dr. Farhat Leal MONO # 0.7 103/ul Normal 0.3-0.8 [facility] [place] [facility] Comment on above: Performed By: #### C BC ####[facility] [place] [facility] Odbrbyvtuu4406 [place] [address]Dr. Farhat Leal Monocytes/100 WBC (Bld) 10.1 % Normal 1.7-12.0 [facility] [place] [facility] Comment on above: Performed By: #### C BC ####[facility] [place] [facility] Dkobmxrtjn5368 [place] [address]Dr. Farhat Leal NEUT # 3.4 103/ul Normal 1.4-6.5 [facility] Comment on above: Performed By: #### C BC ####[facility] [place] [facility] Vqhhzhmhvk6436 [place] [address]Dr. Farhat Leal Neutrophils/100 WBC (Bld) 50.2 % Normal 43.0-75.0 [facility] Comment on above: Performed By: #### C BC ####[facility] [place] [facility] Hxrg[address]zchee4[address] [place] [address]Dr. Farhat Elvis Platelet mean volume (Bld) [Entitic vol] 11.8 fL Normal 9.5-13.5 [facility] Comment on above: Performed By: #### C BC ####[facility] [place] [facility] J[address]ecprqwje5[address] [place] [address]Dr. Farhat Elvis PLT 193 103/ul Normal 150-450 [facility] Comment on above: Performed By: #### C BC ####[facility] [place] [facility] T[address]lbgku[address] [place] [address]Dr. Farhat Elvis RBC 4.03 106/ul Critically low 4.70-6.10 [facility] Comment on above: Performed By: #### C BC ####[facility] [place] [facility] Qiivsqfetb[address] [place], [place] [address]Dr. Farhat Elvis WBC 6.8 103/ul Normal 4.0-11.0 [facility] Comment on above: Performed By: #### C BC ####[facility] [place] [facility] [address] [place], [place] [address]DrSkylar Leal PROF 14(COMP METB)on 023 Albumin [Mass/Vol] 2.9 g/dL Critically low 3.4-5.0 Th [facility] Comment on above: Performed By: #### C MP ####[facility] [place] [facility] [address]os[address]wip[address] [place], [place] [address]Dr. Farhat Leal Albumin/Globulin [Mass ratio] 0.9 {ratio} Normal [facility] Comment on above: Performed By: #### C MP ####[facility] [place] [facility] Yerheiywws[address] [place], [place] [address]Dr. Farhat Leal ALP [Catalytic activity/Vol] 67 U/L Normal 46-116 [facility] Comment on above: Performed By: #### C MP ####[facility] [place] [facility] Wjrhxamlkg83[address] [place] [address]Dr. Farhat Leal ALT [Catalytic activity/Vol] 15 U/L Critically low 16-63 [facility] Comment on above: Performed By: #### C MP ####[facility] [place] [facility] Uiszoecqnm[address] [place] [address]Dr. Farhat Elvis Anion gap [Moles/Vol] 10.8 mmol/L Normal Th e [facility] [place] [facility] Comment on above: Performed By: #### C MP ####[facility] [place] [facility] [address]zpeownybd[address] [place] [address]Dr. Farhat Elvis AST [Catalytic activity/Vol] 23 U/L Normal 15-37 [facility] Comment on above: Performed By: #### C MP ####[facility] [place] [facility] Hnqepzmrzc6[address] [place] [address]Dr. Farhat Elvis Bilirubin [Mass/Vol] 0.6 mg/dL Normal 0.2-1.0 [facility] Comment on above: Performed By: #### C MP ####[facility] [place] [facility] Fcireoenkl3898 [place] [address]Dr. Farhat Elvis Calcium [Mass/Vol] 8.7 mg/dL Normal 8.5-10.1 [facility] Comment on above: Performed By: #### C MP ####[facility] [place] [facility] Wajmaqgaeh[address] [place] [address]Dr. Farhat Elvis Chloride [Moles/Vol] 105 mmol/L Normal 98-107 [facility] [place] [facility] Comment on above: Performed By: #### C MP ####[facility] [place] [facility] Tecwnjoxhc[address]654 [place] [address]Dr. Farhat Leal CO2 [Moles/Vol] 29.5 mmol/L Normal 21.0-32.0 [facility] Comment on above: Performed By: #### C MP ####[facility] [place] [facility] Hrizzkhpcn22[address] [place] [address]Dr. Farhat Leal Creatinine [Mass/Vol] 1.37 mg/dL Critically high 0.70-1.30 [facility] Comment on above: Performed By: #### C MP ####[facility] [place] [facility] Lqbubbyudm3324 [place] [phone]. Farhat Elvis EGFR-AF BOLIVIAN >60 Normal >=60 [facility] Comment on above: Performed By: #### C MP ####[facility] [place] [facility] Wbrvskubqx8[address] [place] [phone]. Farhat Leal EGFR-NON AF BOLIVIAN 50 mL/min/1.73m2 Critically low >=60 [facility] Comment on above: Performed By: #### C MP ####[facility] [place] [facility] Equpqeagkw[address] [place] [address]Dr. Farhat Leal Globulin (S) [Mass/Vol] 3.1 g/dL Normal [facility] Comment on above: Performed By: #### C MP ####[facility] [place] [facility] Oigfqnpmey26[address] [place] [phone]. Farhat Lela Glucose [Mass/Vol] 203 mg/dL Critically high 74-106 [facility] Comment on above: Performed By: #### C MP ####[facility] [place] [facility] Wmrkkyokla9843 [place] [phone]. Farhat Leal Potassium [Moles/Vol] 4.3 mmol/L Normal 3.5-5.1 [facility] Comment on above: Performed By: #### C MP ####[facility] [place] [facility] Xusqboiusl80[address] [place] [phone]. Farhat Leal Protein [Mass/Vol] 6.0 g/dL Critically low 6.4-8.2 Th [facility] Comment on above: Performed By: #### C MP ####[facility] [place] [facility] Mibnyogtmt6478 [place] [phone]. Farhat Leal Sodium [Moles/Vol] 141 mmol/L Normal 136-145 [facility] Comment on above: Performed By: #### C MP ####[facility] [place] [facility] Foyrsvmhas64[address] [place] [phone]. Farhat Leal Urea nitrogen [Mass/Vol] 65.0 mg/dL Critically high 7.0-18.0 [facility] Comment on above: Performed By: #### C MP ####[facility] [place] [facility] Isesxpvwbt24[address] [place] [address]DrSkylar Leal Urea nitrogen/Creatinine [Mass ratio] 47.4 mg/mg Normal [facility] Comment on above: Performed By: #### C MP ####[facility] [place] [facility] Iyipznjjvf1716 [place] [phone] Leal PROTIMEon 04-15-2022 INR Coag (PPP) [Relative time] 3.88 {INR} Normal [facility] Comment on above: Performed By: #### P T ####[facility] [place] [facility] [address]em[address] [place] [address]DrSkylar Leal INR GUIDELINES SEE BELOW Normal [facility] Comment on above: Result Comment: MALINA RED INR: 2.0 - 3.0 CONDITIONS NOT LISTED BELOW 2.5 - 3.5 FOR PROSTHETIC HEART VALVE REPLACEMENT 2.5 - 3.5 RECURRENT THROMBOSIS Performed By: #### P T ####[facility] [place] [facility] Visqhvbcmt6[address] [place] [phone]. Farhat Leal PT Coag (PPP) [Time] 38.1 s Critically high 9.0-11.6 [facility] Comment on above: Performed By: #### P T ####[facility] [place] [facility] Sqjdalonqz14[address] [place] [phone]. Farhat Leal Glucose Glucometer (dC) [M ass/Vol]Ordered By: Sadia Aguilar on 04-14-2022 Glucose [Mass/Vol] 162 mg/dL [facility] Comment on above: Random Glucose Refer ence Range is dependent on time and content of last meal. Glucose of more than 200 mg/dL in a nonstressed, ambulatory subject supports the diagnosis of Diabetes Mellitus. Glucose Poct Glucometerson 0 04-14-2022 Commemt1 Glu2: Cleaned Meter Normal [facility] Comment on above: Result Comment: PERF ORMED BY: [facility] [address] [place] [address] PATHOLOGIST OSCILLOGRAPH TECHNICIAN JOSE F ELLIOTT M.D. Performed By: #### G LULS #### Point of Care testing , Glucose [Mass/Vol] 162 mg/dL Normal [facility] Comment on above: Result Comment: [facility] Glucose Reference Range is dependent on time and content of last meal. Glucose of more than 200 mg/dL in a nonstressed, ambulatory subject supports the diagnosis of Diabetes Mellitus. Performed By: #### G LULS #### Point of Care testing , No Panel InformationOrdered By: Sadia Aguilar on 04-14-2022 Bedside Glucose Comment Glu2: cleaned meter [facility] [place] MAGNESIUMon 04-13-2022 Magnesium [Mass/Vol] 1.7 mg/dL Critically low 1.8-2.4 [facility] Comment on above: Performed By: #### M HENRI Manzo ####[facility] [place] [facility] [address]grb[address] [place] [address]Dr. Farhat Leal PHOSPHORUSon 04-13-2022 Phosphate [Mass/Vol] 4.8 mg/dL Critically high 2.6-4.7 [facility] Comment on above: Performed By: #### M Anais PHOWard ####[facility] [place] [facility] [address]fthtuif[address] [place] [address]Dr. Farhat Leal PROTIMEon 04-13-2022 INR Coag (PPP) [Relative time] 3.16 {INR} Normal [facility] [place] [facility] Comment on above: Performed By: #### P T ####[facility] [place] [facility] [address] [place] [address]DrSkylar Leal INR GUIDELINES SEE BELOW Normal [facility] Comment on above: Result Comment: MALINA RED INR: 2.0 - 3.0 CONDITIONS NOT LISTED BELOW 2.5 - 3.5 FOR PROSTHETIC HEART VALVE REPLACEMENT 2.5 - 3.5 RECURRENT THROMBOSIS Performed By: #### P T ####[facility] [place] [facility] Frauxroxlg[address] [place] [address]DrSkylar Leal PT Coag (PPP) [Time] 31.4 s Critically high 9.0-11.6 [facility] [place] [facility] Comment on above: Performed By: #### P T ####[facility] [place] [facility] [address]ks[address] [place], [place] [address]Pf. Farhat Leal MAGNESIUMon 03-11-2022 Magnesium [Mass/Vol] 1.6 mg/dL Critically low 1.8-2.4 [facility] [place] [facility] Comment on above: Performed By: #### M G, PHOS ####[facility] [place] [facility] [address] [place], [place] [address]Oj. Farhat Leal PHOSPHORUSon 03-11-2022 Phosphate [Mass/Vol] 5.3 mg/dL Critically high 2.6-4.7 [facility] [place] [facility] Comment on above: Performed By: #### M G, PHOS ####[facility] [place] [facility] [address] [place] [phone]. 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 Patient on mycophenolate mofetil , cellcept and prednisone Mixed hyperlipidemia due to type 2 diabetes mellitus ([facility]) 11/29/2021 Osteomyelitis ([facility]) 11/29/2021 Paroxysmal atrial fibrillation ([facility]) Renal transplant, status post SA node dysfunction ([facility]) s/p pacemaker Type 2 diabetes mellitus with diabetic neuropathy, with long-term current use of insulin ([facility]) 02/24/2002 PAST SURGICAL HISTORY Procedure [...] by mouth daily with lunch. Magic Cup [place] with lunch aspirin, enteric coated (ASPIRIN, ENTERIC COATED) 81 mg EC tablet Take 1 tablet by (more content not included)... Normal [facility] PROTIMEon 02-25-2022 INR Coag (PPP) [Relative time] 1.31 {INR} Normal [facility] [place] [facility] Comment on above: Performed By: #### P T ####[facility] [place] [facility] [address] [place], [place] [address]Dr. Farhat Leal INR GUIDELINES SEE BELOW Normal [facility] Comment on above: Result Comment: MALINA RED INR: 2.0 - 3.0 CONDITIONS NOT LISTED BELOW 2.5 - 3.5 FOR PROSTHETIC HEART VALVE REPLACEMENT 2.5 - 3.5 RECURRENT THROMBOSIS Performed By: #### P T ####[facility] [place] [facility] [address]qzxsia[address] [place], [place] [address]Jc. Farhat Leal PT Coag (PPP) [Time] 13.7 s Critically high 9.0-11.6 [facility] Comment on above: Performed By: #### P T ####[facility] [place] [facility] [address]uzp[address] [place], [place] [address]DtSkylar Hassan 02-19-2022 CNPN Telephone (TXCTGL) ALEX ALMONTE ([id number]) 1945 M TRN Date Time Provider Department [...] by mouth daily with lunch. 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] 07/30/2006 VITAMIN D DEFICIENCY NOS [E55.9] 09/07/2008 [...] diabetes mellitus with diabetic peripher*11/29/2021 Atherosclerosis of napaimute artery of extremity w*11/29/2021 Malnutrition of moderate degree (HCC) [E44.0] 12/01/2021 Dermatitis associated with moisture [L30.8] 12/04/2021 Encounter Status:Closed by AUGUSTA MEDRANO on 02/19/22 [facility] Sonya 02-18-2022 CNPN Telephone (PODCCP) ALEX ALMONTE ([id number]) 1945 M TRN Date Time Provider Department 02/18/22 DEVON MOREIRA PODCCWilfred During your visit today, we recorded the following information about you: Yumikoev Denise 02/18/2022 3:16 PM Signed Reason for call: Mr. Almonte would like to request a sooner appointment with Dr. Peterson than 04/13/2022. Contact Name (if not the patient) Alex's nurse Home and cell number(Ask for Alex's nurse) [phone] Diagnosis 4 mo f/u wound check Best [...] by mouth daily with lunch. 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 Normal [facility] CNOVon 02-05-2022 CNOV Office Visit (TXCTGL ) ALEX ALMONTE ([id number]) 1945 M TRN Date Time Provider Department 02/05/22 8:20 AM [facility] TXCTGL During your visit today, we recorded the following information about you: Temperature Pulse Blood pressure 96.7 degrees 79/minute 72/42 Asia Pike MD 02/05/2022 9:38 AM Signed [facility] Transplant Follow up Portions of this note [...] and snacks patient declined. Indra scale at [facility]: 166.2 lbs per patient. Bed sore on coccyx causing discomfort. Being changed regularly at [facility]- reported to be smaller around but still as deep. Patient not very up to date with medications. Patient brought paperwork from [facility] with all medications being received. Patient unsure if they have been drawing labs regularly. Last Tac from 01/19: 12.9 and K 5.9. In need of current labs. Lab orders will be sent with patient and follows as below: [facility]ney and Pancreas Transplant Standing Lab Orders [id number] [place], [place] [address] February 05, 2022 Alex Almonte 1945 [id number] STANDARD TESTING: Diagnosis Codes: Z94.0 Kidney Transplant [...] AT YOUR LABORATORY FACILITY AND FAX TO [phone]. PLEASE CALL [phone]. Provider: Dr. Pike Current Outpatient Medications Medication [...] Take 237 (more content not included)... Normal [facility] PROTEIN CREATININE RATIOon 1 04-08-2021 Protein/Creatinine (U) [Mass ratio] 0.10 mg/mg <0.15 mg/mg [facility] PROTIMEon 02-05-2022 INR Coag (PPP) [Relative time] 2.90 {INR} Normal [facility] Comment on above: Performed By: #### P T ####[facility] [place] [facility] [address] [place] [address]Dr. Farhat Leal INR GUIDELINES SEE BELOW Normal [facility] Comment on above: Result Comment: MALINA RED INR: 2.0 - 3.0 CONDITIONS NOT LISTED BELOW 2.5 - 3.5 FOR PROSTHETIC HEART VALVE REPLACEMENT 2.5 - 3.5 RECURRENT THROMBOSIS Performed By: #### P T ####[facility] [place] [facility] [address]il[address] [place], [place] [address]Rl. Farhat Leal PT Coag (PPP) [Time] 29.2 s Critically high 9.0-11.6 [facility] [place] [facility] Comment on above: Performed By: #### P T ####[facility] [place] [facility] Nmoouynjwq364[address] [place] [id number]. Farhat Leal Prot/Creat Uron 02-05-2022 Protein/Creatinine (U) [Mass ratio] 0.10 mg/mg Normal <0.15 [facility] Comment on above: Order Comment: Speci men Type: URINE SPECIMENOrdering Facility: [facility] Address: [address] [place] [address] Result Comment: Adul t Proteinuria Categories: <0.15 mg/mg is considered normal to mildly increased 0.15 - 0.50 mg/mg is considered moderately increased >0.50 mg/mg is considered severely increased KDIGO. (2013). KDIGO 2012 Clinical Practice Guideline for the Evaluation and Management of Chronic Kidney Disease. Official Journal of the International Society of Nephrology, 3(1), 1-150. Performed By: #### 2 890-2 ####[facility] LABCLIA [id number] [place] [address] [place] [facility] Protein/Creatinine (U) [Mass ratio]on 02-05-2022 Creatinine (U) [Mass/Vol] 86.9 mg/dL 20.0 - 300.0 mg/dL [facility] Protein (U) [Mass/Vol] 9 mg/dL 0 - 20 mg/dL [facility] Creatinine (U) [Mass/Vol] 86.9 mg/dL Normal 20.0-300.0 [facility] Comment on above: Order Comment: Speci men Type: URINE SPECIMENOrdering Facility: [facility] Address: [address] [place], [place] [id number] Performed By: #### 2 890-2 ####[facility] LABCLIA [id number] [place] [id number] [place] Protein (U) [Mass/Vol] 9 mg/dL Normal 0-20 [facility] Comment on above: Order Comment: Speci men Type: URINE SPECIMENOrdering Facility: [facility] Address: [address] [place] [address] Performed By: #### 2 890-2 ####[facility] LABCLIA [id number] [place] [address] [place] URINALYSIS, DIPSTICK ONLYon 02-05-2022 Bilirubin Ql (U) Negative Normal Negative [facility] Comment on above: Order Comment: Speci men Type: URINE SPECIMEN Ordering Facility: [facility] Address: [address] [place] [address] Performed By: #### U A #### [facility] LAB CLIA [id number] [address] [place] [address] [place] Clarity (Unsp spec) Clear Normal Clear [facility] Comment on above: Order Comment: Speci men Type: URINE SPECIMEN Ordering Facility: [facility] Address: [address] [place] [address] Performed By: #### U A #### [facility] CLIA [id number] [facility] [address] STATES OF [facility] Color (U) Yellow Normal Yellow [facility] Comment on above: Order Comment: Speci men Type: URINE SPECIMEN Ordering Facility: [facility] Address: [address] [place], [place] [id number] Performed By: #### U A #### [facility] CLIA [id number] [facility] [place] [address] [place] Glucose Test strip (U) [Mass/Vol] 3+ Abnormal Trace, Negative [facility] Comment on above: Order Comment: Speci men Type: URINE SPECIMEN Ordering Facility: [facility] Address: [address] [place] [address] Performed By: #### U A #### [facility] CLIA [id number] [address] [place] [address] [place] Hemoglobin Ql (U) Negative Normal Negative, Trace [facility] Comment on above: Order Comment: Speci men Type: URINE SPECIMEN Ordering Facility: [facility] Address: [address] [place] [address] Performed By: #### U A #### [facility] CLIA [id number] [address] [place] [address] [place] Ketones Ql (U) Trace Normal Negative, Trace [facility] Comment on above: Order Comment: Speci men Type: URINE SPECIMEN Ordering Facility: [facility] Address: [address] [place] [address] Performed By: #### U A #### [facility] CLIA [id number] [address] [place] [address] [place] Leukocyte esterase Test strip Ql (U) Negative Normal Negative, 25 Loraine/mL [facility] Comment on above: Order Comment: Speci men Type: URINE SPECIMEN Ordering Facility: [facility] Address: [address] [place] [address] Performed By: #### U A #### [facility] CLIA [id number] [address] [place] [address] [place] Nitrite Ql (U) Negative Normal Negative [facility] Comment on above: Order Comment: Speci men Type: URINE SPECIMEN Ordering Facility: [facility] Address: [address] [place] [address] Performed By: #### U A #### [facility] CLIA [id number] [address] [place] [address] [place] pH (U) 5.5 [pH] Normal 5.0-8.0 [facility] Comment on above: Order Comment: Speci men Type: URINE SPECIMEN Ordering Facility: [facility] Address: [address] [place], [place] [id number] Performed By: #### U A #### [facility] CLIA [id number] [address] [place] [address] [place] Protein (U) [Mass/Vol] Negative Normal Trace , Negative [facility] Comment on above: Order Comment: Speci men Type: URINE SPECIMEN Ordering Facility: [facility] Address: [address] [place] [address] Performed By: #### U A #### [facility] CLIA [id number] [address] [place] [address] [place] Specific gravity (U) [Rel density] 1.014 Normal 1.005-1.030 [facility] Comment on above: Order Comment: Speci men Type: URINE SPECIMEN Ordering Facility: [facility] Address: [address] [place] [address] Performed By: #### U A #### [facility] CLIA [id number] [address] [place] [address] [place] Urobilinogen Ql (U) 1+ Abnormal Negative [facility] Comment on above: Order Comment: Speci men Type: URINE SPECIMEN Ordering Facility: [facility] Address: [address] [place] [address] Performed By: #### U A #### [facility] CLIA [id number] [address] [place] [address] [place] Bilirubin Ql (U) Negative Negative [facility] Clarity (Unsp spec) Clear Clear [facility] Color (U) Yellow Yellow [facility] Glucose Test strip (U) [Mass/Vol] 3+ Abnormal Trace, Negative [facility] Hemoglobin Ql (U) Negative Negative, Trace [facility] Ketones Ql (U) Trace Negative, Trace [facility] Leukocyte esterase Test strip Ql (U) Negative Negative, 25 Loraine/mL [facility] Nitrite Ql (U) Negative Negative [facility] pH (U) 5.5 [pH] 5.0 - 8.0 [facility] Protein (U) [Mass/Vol] Negative Trace , Negative [facility] Specific gravity (U) [Rel density] 1.014 1.005 - 1.030 [facility] Urobilinogen Ql (U) 1+ Abnormal Negative [facility] FK506 (TACROLIMUS) WHOLE BLO ODon 01-29-2022 Tacrolimus (FK506), Blood 11.1 ng/mL Normal 2.0-20.0 [facility] Comment on above: Result Comment: Trou gh (immediately following transplant) 15.0 . Trough (steady state, 2 weeks or more after transplant): 3.0 - 8.0 . Performed by LC-MS/MS technology. Performed By: #### F K506T ####[facility] Jhtonqimnu[address] [place], [place] [address]Dr. Farhat Leal PHOSPHORUSon 01-26-2022 Phosphate [Mass/Vol] 4.1 mg/dL Normal 2.6-4.7 [facility] Comment on above: Performed By: #### C CARA PHOS ####[facility] Gpdkrjlsec[address] [place], [place] [address]Dr. Farhat Leal PROF 14(COMP METB)on 022 Albumin [Mass/Vol] 2.1 g/dL Critically low 3.4-5.0 [facility] Comment on above: Performed By: #### C CARA, PHOS ####[facility] Xykww[address]oh[address] [place], [place] [address]Dr. Farhat Leal Albumin/Globulin [Mass ratio] 0.6 {ratio} Normal [facility] Comment on above: Performed By: #### C CARA, PHOS ####[facility] Xfpvng[address]vei[address] [place], [place] [address]Dr. Farhat Leal ALP [Catalytic activity/Vol] 89 U/L Normal 46-116 [facility] Comment on above: Performed By: #### C CARA, PHOS ####[facility] Lwnev[address]rse[address] [place], [place] [address]Dr. Farhat Leal ALT [Catalytic activity/Vol] 27 U/L Normal 16-63 [facility] Comment on above: Performed By: #### C CARA, PHOS ####[facility] Uslxjfc[address] [place], [place] [address]Dr. Farhat Leal Anion gap [Moles/Vol] 12.3 mmol/L Normal [facility] Comment on above: Performed By: #### C CARA, PHOS ####[facility] [address] [place], [place] [address]Dr. Farhat Leal AST [Catalytic activity/Vol] 53 U/L Critically high 15-37 [facility] Comment on above: Performed By: #### C MP, PHOS ####[facility] Gmpgzdpqtp[address] [place], [place] [address]Dr. Farhat Leal Bilirubin [Mass/Vol] 0.6 mg/dL Normal 0.2-1.0 [facility] Comment on above: Performed By: #### C CARA, PHOS ####[facility] Cxowzcmtwi[address] [place], [place] [address]Dr. Farhat Leal Calcium [Mass/Vol] 8.0 mg/dL Critically low 8.5-10.1 [facility] Comment on above: Performed By: #### C CARA, PHOS ####[facility] Vvkouokfda[address] [place], [place] [address]Dr. Farhat Leal Chloride [Moles/Vol] 97 mmol/L Critically low 98-107 [facility] Comment on above: Performed By: #### C CARA, PHOS ####[facility] Oj[address] [place], [place] [address]Dr. Farhat Leal CO2 [Moles/Vol] 26.6 mmol/L Normal 21.0-32.0 [facility] Comment on above: Performed By: #### C CARA, PHOS ####[facility] Rcrr[address] [place], [place] [address]Dr. Farhat Leal Creatinine [Mass/Vol] 1.03 mg/dL Normal 0.70-1.30 [facility] Comment on above: Performed By: #### C CARA, PHOS ####[facility] Rheaoifoxw[address] [place], [place] [address]Dr. Farhat Leal EGFR-AF BOLIVIAN >60 Normal >=60 [facility] Comment on above: Performed By: #### C CARA, PHOS ####[facility] [address] [place] [phone]. Farhat Leal EGFR-NON AF BOLIVIAN >60 Normal >=60 [facility] Comment on above: Performed By: #### C MP, PHOS ####[facility] [address] [place] [id number]. Farhat Leal Globulin (S) [Mass/Vol] 3.7 g/dL Normal [facility] Comment on above: Performed By: #### C MP, PHOS ####[facility] [address] [place] [address]Dr. Farhat Leal Glucose [Mass/Vol] 287 mg/dL Critically high 74-106 [facility] Comment on above: Performed By: #### C CARA, PHOS ####[facility] Z[address]elskc[address] [place] [address]Dr. Farhat Leal Potassium [Moles/Vol] 3.9 mmol/L Normal 3.5-5.1 [facility] Comment on above: Performed By: #### C CARA, PHOS ####[facility] [address] [place] [address]Dr. Farhat Leal Protein [Mass/Vol] 5.8 g/dL Critically low 6.4-8.2 [facility] Comment on above: Performed By: #### C CARA, PHOS ####[facility] [address] [place] [address]Dr. Farhat Leal Sodium [Moles/Vol] 132 mmol/L Critically low 136-145 Th [facility] Comment on above: Performed By: #### C CARA, PHOS ####[facility] [address]rox[address] [place] [address]Dr. Farhat Leal Urea nitrogen [Mass/Vol] 23.0 mg/dL Critically high 7.0-18.0 [facility] Comment on above: Performed By: #### C CARA, PHOS ####[facility] [address] [place] [address]Dr. Farhat Leal Urea nitrogen/Creatinine [Mass ratio] 22.3 mg/mg Normal [facility] Comment on above: Performed By: #### C MP, PHOS ####[facility] [address] [place] [phone]. Farhat Leal FK506 (TACROLIMUS) WHOLE BLO ODon 01-21-2022 Tacrolimus (FK506), Blood 12.2 ng/mL Normal 2.0-20.0 [facility] Comment on above: Result Comment: Trou gh (immediately following transplant) 15.0 . Trough (steady state, 2 weeks or more after transplant): 3.0 - 8.0 . Performed by LC-MS/MS technology. Performed By: #### F K506T ####[facility] [address] [place] [phone]. Farhat Leal ACID FAST SMEAR AND CXon Acid Fast Culture Negative Normal [facility] Comment on above: Result Comment: No a abdiel fast bacilli isolated after 6 weeks. Performed By: #### A FB ####[facility] [address] [place] [phone]. Farhat Leal Acid Fast Smear Negative Normal [facility] Comment on above: Performed By: #### A FB ####[facility] [address] [place] [address]Dr. Farhat Leal [employer] Specimen Processing Tissue Grinding Normal [facility] Comment on above: Performed By: #### A FB ####[facility] [address] [place] [phone]. Farhat Leal [facility] 01-20-2022 DIAMANTEN Telephone (KIMBERLY) ALEX ALMONTE ([id number]) [address] [facility] Date Time Provider Department 01/20/22 VAN OLIVAREZ During your visit today, we recorded the following information about you: Van Olivarez APRN.CNP 01/20/2022 1:14 PM Signed Labs noted from yesterday. Pt is currently residing at [facility], I spoke with the Nurse, [...] by mouth daily with lunch. 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*11/29/2021 Malnutrition of moderate degree (HCC) [E44.0] 12/01/2021 Dermatitis associated with moisture [L30.8] 12/04/2021 Encounter Status:Closed by VAN OLIVAREZ on 01/20/22 Normal [facility] Orders Onlyon 01-20-2022 Orders Only [id number] Alex Amlonte 1945 Date Provider Department Center 01/20/2022 Francisco Javier-SUSIE HERNANDES [facility] No family history on file Normal [facility] PROF 14(COMP METB)on 022 Albumin [Mass/Vol] 1.9 g/dL Critically low 3.4-5.0 Th [facility] Comment on above: Performed By: #### C MP ####[facility] [address]chq[address] [place] [address]DrSkylar Leal Albumin/Globulin [Mass ratio] 0.5 {ratio} Normal [facility] Comment on above: Performed By: #### C MP ####[facility] Vwruy[address]xbt75[address] [place] [address]DrSkylar Leal ALP [Catalytic activity/Vol] 78 U/L Normal 46-116 [facility] Comment on above: Performed By: #### C MP ####[facility] [address]fwue1097 [place] [address]DrSkylar Leal ALT [Catalytic activity/Vol] 22 U/L Normal 16-63 [facility] Comment on above: Performed By: #### C MP ####[facility] Emfiybpefo[address] [place] [address]Dr. Farhat Leal Anion gap [Moles/Vol] 8.0 mmol/L Normal [facility] Comment on above: Performed By: #### C MP ####[facility] Mveqorwssf8[address] [place] [address]Dr. Farhat Leal AST [Catalytic activity/Vol] 92 U/L Critically high 15-37 [facility] Comment on above: Performed By: #### C MP ####[facility] Pvzrfazadk[address] [place], [place] [address]Dr. Farhat Leal Bilirubin [Mass/Vol] 0.7 mg/dL Normal 0.2-1.0 [facility] Comment on above: Performed By: #### C MP ####[facility] Vizpwkasuc[address] [place], [place] [address]Dr. Farhat Leal Calcium [Mass/Vol] 7.8 mg/dL Critically low 8.5-10.1 Th [facility] Comment on above: Performed By: #### C MP ####[facility] [address]qktwm[address] [place], [place] [address]Dr. Farhat Leal Chloride [Moles/Vol] 99 mmol/L Normal 98-107 [facility] Comment on above: Performed By: #### C MP ####[facility] Ajhfmnglvk[address] [place], [place] [address]Dr. Farhat Leal CO2 [Moles/Vol] 30.9 mmol/L Normal 21.0-32.0 [facility] Comment on above: Performed By: #### C MP ####[facility] Noygnpywhv[address] [place], [place] [address]Dr. Farhat Leal Creatinine [Mass/Vol] 0.95 mg/dL Normal 0.70-1.30 [facility] Comment on above: Performed By: #### C MP ####[facility] [address]bmgjtwzj[address] [place], [place] [address]Dr. Madelynlorri Elvis EGFR-AF BOLIVIAN >60 Normal >=60 [facility] Comment on above: Performed By: #### C MP ####[facility] [address]awrtqpii75[address] [place] [phone]. Farhat Leal EGFR-NON AF BOLIVIAN >60 Normal >=60 [facility] Comment on above: Performed By: #### C MP ####[facility] Spoytxymyd64[address] [place] [phone]. Farhat Leal Globulin (S) [Mass/Vol] 3.9 g/dL Normal [facility] Comment on above: Performed By: #### C MP ####[facility] Bxcpdvjykm6[address] [place] [address]Dr. Farhat Leal Glucose [Mass/Vol] 124 mg/dL Critically high 74-106 [facility] Comment on above: Performed By: #### C MP ####[facility] Zyndrqyrrt8463 [place] [address]Dr. Farhat Leal Potassium [Moles/Vol] 5.9 mmol/L Critically high 3.5-5.1 [facility] Comment on above: Performed By: #### C MP ####[facility] Srdrorizic[address] [place], [place] [address]Dr. Farhat Leal Protein [Mass/Vol] 5.8 g/dL Critically low 6.4-8.2 Th [facility] Comment on above: Performed By: #### C MP ####[facility] Chhffewsuu[address] [place], [place] [address]Dr. Farhat Leal Sodium [Moles/Vol] 132 mmol/L Critically low 136-145 Th [facility] Comment on above: Performed By: #### C MP ####[facility] Qzfxfxqyqv1643 [place] [address]Dr. Farhat Leal Urea nitrogen [Mass/Vol] 18.0 mg/dL Normal 7.0-18.0 [facility] Comment on above: Performed By: #### C MP ####[facility] Hkztktgtdx1556 [place] [address]Dr. Farhat Leal Urea nitrogen/Creatinine [Mass ratio] 18.9 mg/mg Normal [facility] Comment on above: Performed By: #### C MP ####[facility] Sabtledmjl[address] [place] [phone]. Farhat Leal INR (POC)on 01-12-2022 INR Coag (PPP) [Relative time] 2.6 {INR} High 0.8 - 1.2 [facility] Internal Quality Check Acceptable Cl [facility] ACID FAST SMEAR AND CXon Acid Fast Culture Negative Normal [facility] Comment on above: Result Comment: No a abdiel fast bacilli isolated after 6 weeks. Performed By: #### A FB ####[facility] Z[address] [place], [place] [id number]. Madelynlorri Leal Acid Fast Smear Negative Normal [facility] Comment on above: Performed By: #### A FB ####[facility] Rgtbdkxfvy[address] [place], [place] [address]Dr. Farhat Leal [employer] Specimen Processing Direct Inoculation Normal [facility] Comment on above: Performed By: #### A FB ####[facility] N[address]utn[address] [place], [place] [address]Dr. Madelynlorri Leal ACID FAST SMEAR AND CXon Acid Fast Culture Negative Normal [facility] Comment on above: Result Comment: No a abdiel fast bacilli isolated after 6 weeks. Performed By: #### A FB ####[facility] Ol[address]ptgqrsa[address] [place], [place] [address]Dr. Farhat Leal Acid Fast Smear Negative Normal [facility] Comment on above: Performed By: #### A FB ####[facility] [address]ylbkwu[address] [place], [place] [address]Dr. Farhat Leal [employer] Specimen Processing Tissue Grinding Normal [facility] Comment on above: Performed By: #### A FB ####[facility] Xrgrojdeyb[address] [place], [place] [address]Dr. Farhat Leal FUNGAL CULTUREon 01-02-2022 Fungus (Mycology) Culture Final report Normal [facility] Comment on above: Performed By: #### C XFUN ####[facility] [address]iy[address]dhp[address] [place], [place] [address]Dr. Farhat Leal Fungus Stain Final report Normal [facility] Comment on above: Performed By: #### C XFUN ####[facility] [address] [place] [address]. Madelynlorri Leal Result 1 Comment Normal [facility] Comment on above: Result Comment: ANNI/ Calcofluor preparation: no fungus observed. Performed By: #### C XFUN ####[facility] [address] [place] [address]. Farhat Leal Result Comment: No y east or mold isolated after 4 weeks. FK506 (TACROLIMUS) WHOLE BLO ODon 12-31-2021 Tacrolimus (FK506), Blood 7.7 ng/mL Normal 2.0-20.0 [facility] Comment on above: Result Comment: Trou gh (immediately following transplant) 15.0 . Trough (steady state, 2 weeks or more after transplant): 3.0 - 8.0 . Performed by LC-MS/MS technology. Performed By: #### F K506T ####[facility] [address] [place] [address]. Farhat Leal HEMOGRAM AND PLATELon 2021 Hematocrit (Bld) [Volume fraction] 27.1 % Critically low 42.0-54.0 [facility] Comment on above: Performed By: #### H H ####[facility] [address] [place] [address]. Farhat Leal Hemoglobin (Bld) [Mass/Vol] 8.7 g/dL Critically low 14.0-18.0 [facility] Comment on above: Performed By: #### H H ####[facility] [address] [place] [address]. Farhat Leal MCH (RBC) [Entitic mass] 30.3 pg Normal 25.9-34.0 [facility] Comment on above: Performed By: #### H H ####[facility] [address] [place] [address]. Farhat Leal MCHC (RBC) [Mass/Vol] 32.1 g/dL Normal 29.9-35.2 [facility] Comment on above: Performed By: #### H H ####[facility] [address] [place] [address]. Farhat Leal MCV (RBC) [Entitic vol] 94.4 fL Critically high 80.0-94.0 [facility] Comment on above: Performed By: #### H H ####[facility] [address] [place] [address]Dr. Farhat Leal PLT 355 103/ul Normal 150-450 [facility] Comment on above: Performed By: #### H H ####[facility] Eytz[address]qvw[address] [place] [address]Dr. Farhat Leal RBC 2.87 106/ul Critically low 4.70-6.10 [facility] Comment on above: Performed By: #### H H ####[facility] Z[address]tkukur[address] [place] [address]Dr. Farhat Leal WBC 6.0 103/ul Normal 4.0-11.0 [facility] Comment on above: Performed By: #### H H ####[facility] Ohmzgjrxvs64[address] [place] [address]Dr. Farhat Leal PHOSPHORUSon 12-29-2021 Phosphate [Mass/Vol] 2.5 mg/dL Critically low 2.6-4.7 [facility] Comment on above: Performed By: #### P HOS, CMP ####[facility] [address]yc[address] [place] [address]DrSkylar Farhat Elvis PROF 14(COMP METB)on 022 Albumin [Mass/Vol] 1.7 g/dL Critically low 3.4-5.0 [facility] Comment on above: Performed By: #### P HOS, CMP ####[facility] Wrhoxzkagh[address] [place] [address]Dr. Farhat Lela Albumin/Globulin [Mass ratio] 0.5 {ratio} Normal [facility] Comment on above: Performed By: #### P HOS, CMP ####[facility] Haqragxffb[address] [place] [address]Dr. Farhat Leal ALP [Catalytic activity/Vol] 78 U/L Normal 46-116 [facility] Comment on above: Performed By: #### P HOS, CMP ####[facility] Kdytpcjcyo14[address] [place] [address]Dr. Farhat Leal ALT [Catalytic activity/Vol] 12 U/L Critically low 16-63 [facility] Comment on above: Performed By: #### P HOS, CMP ####[facility] Lmgwdqoytk[address] [place], [place] [address]Dr. Farhat Leal Anion gap [Moles/Vol] 5.1 mmol/L Normal [facility] Comment on above: Performed By: #### P HOS, CMP ####[facility] Comlmczkmt[address] [place], [place] [address]Dr. Farhat Leal AST [Catalytic activity/Vol] 22 U/L Normal 15-37 [facility] Comment on above: Performed By: #### P HOS, CMP ####[facility] Skuujusfew[address] [place], [place] [address]Dr. Farhat Leal Bilirubin [Mass/Vol] 0.6 mg/dL Normal 0.2-1.0 [facility] Comment on above: Performed By: #### P HOS, CMP ####[facility] Umdtflszzd[address] [place], [place] [address]Dr. Farhat Leal Calcium [Mass/Vol] 8.1 mg/dL Critically low 8.5-10.1 [facility] Comment on above: Performed By: #### P HOS, CMP ####[facility] Ctvhkovrqp[address] [place], [place] [address]Dr. Farhat Leal Chloride [Moles/Vol] 100 mmol/L Normal 98-107 [facility] Comment on above: Performed By: #### P HOS, CMP ####[facility] Cxjfeqovht[address] [place], [place] [address]Dr. Farhat Leal CO2 [Moles/Vol] 34.2 mmol/L Critically high 21.0-32.0 [facility] Comment on above: Performed By: #### P HOS, CMP ####[facility] Wcpgmqybgd[address] [place], [place] [address]Dr. Farhat Leal Creatinine [Mass/Vol] 0.92 mg/dL Normal 0.70-1.30 [facility] Comment on above: Performed By: #### P HOS, CMP ####[facility] [place] [facility] [address] [place] [id number]. Farhat Leal EGFR-AF BOLIVIAN >60 Normal >=60 [facility] Comment on above: Performed By: #### P HOS, CMP ####[facility] [place] [facility] Z[address]prvhixi[address] [place] [id number]. Farhat Leal EGFR-NON AF BOLIVIAN >60 Normal >=60 [facility] Comment on above: Performed By: #### P HOS, CMP ####[facility] [place] [facility] K[address]we[address]qtr[address] [place] [id number]. Farhat Leal Globulin (S) [Mass/Vol] 3.3 g/dL Normal [facility] Comment on above: Performed By: #### P HOS, CMP ####[facility] [place] [facility] [address] [place] [address]Dr. Farhat Leal Glucose [Mass/Vol] 116 mg/dL Critically high 74-106 [facility] Comment on above: Performed By: #### P HOS, CMP ####[facility] [place] [facility] X[address]xw[address] [place] [address]Dr. Farhat Leal Potassium [Moles/Vol] 3.3 mmol/L Critically low 3.5-5.1 [facility] Comment on above: Performed By: #### P HOS, CMP ####[facility] [place] [facility] Bdkazdqoni[address] [place] [id number]. Farhat Leal Protein [Mass/Vol] 5.0 g/dL Critically low 6.4-8.2 [facility] Comment on above: Performed By: #### P HOS, CMP ####[facility] [place] [facility] [address] [place] [address]Dr. Farhat Leal Sodium [Moles/Vol] 136 mmol/L Normal 136-145 [facility] Comment on above: Performed By: #### P HOS, CMP ####[facility] [place] [facility] Wwgymjqxvn[address] [place] [id number]. Farhat Leal Urea nitrogen [Mass/Vol] 14.0 mg/dL Normal 7.0-18.0 [facility] Comment on above: Performed By: #### P HOS, CMP ####[facility] [place] [facility] Ecbtzcd[address]ct[address] [place], [place] [address]DrSkylar Leal Urea nitrogen/Creatinine [Mass ratio] 15.2 mg/mg Normal [facility] [place] [facility] Comment on above: Performed By: #### P HOS, CMP ####[facility] [place] [facility] Ggzxdljzrz[address] [place], [place] [address]DrSkylar Leal PROTIMEon 12-29-2021 INR Coag (PPP) [Relative time] 1.26 {INR} Normal [facility] [place] [facility] Comment on above: Performed By: #### P T ####[facility] [place] [facility] Xqfrhdbwyi[address] [place], [place] [address]Dr. Farhta Leal INR GUIDELINES SEE BELOW Normal [facility] Comment on above: Result Comment: MALINA RED INR: 2.0 - 3.0 CONDITIONS NOT LISTED BELOW 2.5 - 3.5 FOR PROSTHETIC HEART VALVE REPLACEMENT 2.5 - 3.5 RECURRENT THROMBOSIS Performed By: #### P T ####[facility] [place] [facility] Sayxbkoqsh[address] [place], [place] [address]Dr. Farhat Leal PT Coag (PPP) [Time] 13.4 s Critically high 9.0-11.6 [facility] [place] [facility] Comment on above: Performed By: #### P T ####[facility] [place] [facility] Oqxdnhikim[address] [place], [place] [address]Dr. Farhat Leal XR MODIFIED BARIUM SWALLOWon 12-25-2021 XR MODIFIED BARIUM SWALLOW Normal [facility] [place] [facility] FUNGAL CULTUREon 12-24-2021 Fungus (Mycology) Culture Final report Normal [facility] [place] [facility] Comment on above: Performed By: #### C XFUN ####[facility] [place] [facility] Xwaevridhh[address] [place], [place] [address]Dr. Farhat Leal Fungus Stain Final report Normal [facility] Comment on above: Performed By: #### C XFUN ####[facility] [place] [facility] Crnkxlfxyo[address] [place], [place] [address]DrSkylar Leal Result 1 Comment Normal [facility] [place] [facility] Comment on above: Result Comment: ANNI/ Calcofluor preparation: no fungus observed. Performed By: #### C XFUN ####[facility] [place] [facility] Mzkomrqzff14[address] [place], [place] [address]Dr. Farhat Leal Result Comment: No y east or mold isolated after 4 weeks. VANCOMYCIN TROUGHon 12-21-19 VANCOMYCIN TROUGH 14.4 ug/ml Normal 5.0-20.0 [facility] Comment on above: Performed By: #### V ANCT ####[facility] [place] [facility] Jaqescibrk[address] [place], [place] [address]Dr. Farhat Leal CBC AUTO DIFFon 12-14-2021 BASO # 0.0 103/ul Normal 0.0-0.1 [facility] [place] [facility] Comment on above: Performed By: #### C BC ####[facility] [place] [facility] K[address]vzilrww[address] [place], [place] [address]Dr. Farhat Leal Basophils/100 WBC (Bld) 0.2 % Normal 0.2-2.0 [facility] Comment on above: Performed By: #### C BC ####[facility] [place] [facility] Lwjmjyfkbc[address] [place], [place] [address]Dr. Farhat Leal EO # 0.2 103/ul Normal 0.0-0.7 [facility] [place] [facility] Comment on above: Performed By: #### C BC ####[facility] [place] [facility] Jrkziighxu8815[address] [place], [place] [address]Dr. Farhat Leal Eosinophils/100 WBC (Bld) 2.1 % Normal 0.9-7.0 [facility] Comment on above: Performed By: #### C BC ####[facility] [place] [facility] Wyqcrapspi034[address] [place], [place] [address]Dr. Farhat Leal Erythrocyte distribution width (RBC) [Ratio] 18.2 % Critically high 11.0-15.0 [facility] [place] [facility] Comment on above: Performed By: #### C BC ####[facility] [place] [facility] Ddofbccpkw[address] [place], [place] [address]DrSkylar Leal Hematocrit (Bld) [Volume fraction] 25.8 % Critically low 42.0-54.0 [facility] [place] [facility] Comment on above: Performed By: #### C BC ####[facility] [place] [facility] Myrhmlstxr[address] [place], [place] [address]Dr. Farhat Leal Hemoglobin (Bld) [Mass/Vol] 8.0 g/dL Critically low 14.0-18.0 [facility] [place] [facility] Comment on above: Performed By: #### C BC ####[facility] [place] [facility] [address] [place] [address]DrSkylar Leal IG # 0.08 10e3/ul Critically high 0.00-0.03 [facility] Comment on above: Performed By: #### C BC ####[facility] [place] [facility] Capceztncc[address] [place], [place] [address]DrSkylar Leal IG % 0.7 % Critically high 0.0-0.5 [facility] Comment on above: Performed By: #### C BC ####[facility] [place] [facility] Orbuxeptdl96[address] [place], [place] [address]DrSkylar Leal LYMPH # 0.9 103/ul Critically low 1.2-3.[address] [facility] Comment on above: Performed By: #### C BC ####[facility] [place] [facility] Frhrrepisx[address] [place], [place] [address]DrSkylar Leal Lymphocytes/100 WBC (Bld) 8.7 % Critically low 20.5-60.0 [facility] Comment on above: Performed By: #### C BC ####[facility] [place] [facility] Ifxurkhrlw[address] [place], [place] [address]DrSkylar Leal MANUAL DIFF REQ NO Normal [facility] Comment on above: Performed By: #### C BC ####[facility] [place] [facility] Xoilxjlgnx[address] [place], [place] [address]DrSkylar Leal MCH (RBC) [Entitic mass] 30.0 pg Normal 25.9-34.0 [facility] [place] [facility] Comment on above: Performed By: #### C BC ####[facility] [place] [facility] [address]vhzxndmm[address] [place], [place] [address]DrSkylar Leal MCHC (RBC) [Mass/Vol] 31.0 g/dL Normal 29.9-35.2 [facility] [place] [facility] Comment on above: Performed By: #### C BC ####[facility] [place] [facility] Yqkwrkajrj[address] [place], [place] [address]DrSkylar Leal MCV (RBC) [Entitic vol] 96.6 fL Critically high 80.0-94.0 [facility] [place] [facility] Comment on above: Performed By: #### C BC ####[facility] [place] [facility] [address] [place] [phone] Leal MONO # 0.7 103/ul Normal 0.3-0.8 [facility] [place] [facility] Comment on above: Performed By: #### C BC ####[facility] [place] [facility] Pvopfgtlif[address] [place], [place] [address]DrSkylar Farhat Leal Monocytes/100 WBC (Bld) 6.7 % Normal 1.7-12.0 [facility] [place] [facility] Comment on above: Performed By: #### C BC ####[facility] [place] [facility] Ecjs[address]miyx[address] [place], [place] [address]DrSkylar Farhat Leal NEUT # 8.8 103/ul Critically high 1.4-6.5 [facility] Comment on above: Performed By: #### C BC ####[facility] [place] [facility] Zcdkgoknik[address] [place], [place] [address]DrSkylar Farhat Leal Neutrophils/100 WBC (Bld) 81.6 % Critically high 43.0-75.0 [facility] [place] [facility] Comment on above: Performed By: #### C BC ####[facility] [place] [facility] Ysnkfcwsgz[address] [place], [place] [address]DrSkylar Farhat Leal Platelet mean volume (Bld) [Entitic vol] 10.5 fL Normal 9.5-13.5 [facility] [place] [facility] Comment on above: Performed By: #### C BC ####[facility] [place] [facility] [address] [place], [place] [address]Dr. Farhat Leal PLT 285 103/ul Normal 150-450 [facility] [place] [facility] Comment on above: Performed By: #### C BC ####[facility] [place] [facility] [address]idtvavg[address] [place], [place] [address]DrSkylar Farhat Elvis RBC 2.67 106/ul Critically low 4.70-6.10 [facility] Comment on above: Performed By: #### C BC ####[facility] [place] [facility] Ckvfzsismk85[address] [place], [place] [address]DrSkylar Farhat Leal WBC 10.7 103/ul Normal 4.0-11.0 [facility] Comment on above: Performed By: #### C BC ####[facility] [place] [facility] [address] [place] [address]DrSkylar Madelynlorri Leal PROF CHEM 8 (BAS METB)on Anion gap [Moles/Vol] 12.4 mmol/L Normal [facility] Comment on above: Performed By: #### B MP ####[facility] [place] [facility] [address]ut[address] [place] [address]Dr. Farhat Leal Calcium [Mass/Vol] 7.8 mg/dL Critically low 8.5-10.1 [facility] Comment on above: Performed By: #### B MP ####[facility] [place] [facility] E[address]lsxrgfvc[address] [place], [place] [address]Dr. Farhat Leal Chloride [Moles/Vol] 102 mmol/L Normal 98-107 [facility] Comment on above: Performed By: #### B MP ####[facility] [place] [facility] Fvtzptltlr[address] [place], [place] [address]Dr. Farhat Leal CO2 [Moles/Vol] 28.1 mmol/L Normal 21.0-32.0 [facility] Comment on above: Performed By: #### B MP ####[facility] [place] [facility] Urwzsyycpt[address] [place], [place] [address]Dr. Farhat Leal Creatinine [Mass/Vol] 1.24 mg/dL Normal 0.70-1.30 [facility] Comment on above: Performed By: #### B MP ####[facility] [place] [facility] [address] [place] [address]Dr. Farhat Leal EGFR-AF BOLIVIAN >60 Normal >=60 [facility] Comment on above: Performed By: #### B MP ####[facility] [place] [facility] Fejgjedcyt[address] [place], [place] [address]Dr. Farhat Leal EGFR-NON AF BOLIVIAN 57 mL/min/1.73m2 Critically low >=60 [facility] [place] [facility] Comment on above: Performed By: #### B MP ####[facility] [place] [facility] Snhnudmokk[address] [place], [place] [address]Dr. Farhat Leal Glucose [Mass/Vol] 296 mg/dL Critically high 74-106 [facility] Comment on above: Performed By: #### B MP ####[facility] [place] [facility] Vsdrdrzams[address] [place], [place] [address]Dr. Farhat Leal Potassium [Moles/Vol] 3.5 mmol/L Normal 3.5-5.1 [facility] Comment on above: Performed By: #### B MP ####[facility] [place] [facility] Erherwleic[address] [place], [place] [address]Dr. Farhat Leal Sodium [Moles/Vol] 139 mmol/L Normal 136-145 [facility] Comment on above: Performed By: #### B MP ####[facility] [place] [facility] Wmcyprkkvb[address] [place], [place] [address]Dr. Farhat Leal Urea nitrogen [Mass/Vol] 27.0 mg/dL Critically high 7.0-18.0 [facility] Comment on above: Performed By: #### B MP ####[facility] [place] [facility] Mpobzzcnza6[address] [place], [place] [address]Dr. Farhat Leal Urea nitrogen/Creatinine [Mass ratio] 21.8 mg/mg Normal [facility] Comment on above: Performed By: #### B MP ####[facility] [place] [facility] [address]idbnqbyk[address] [place], [place] [address]Dr. Farhat Leal PROTIMEon 12-14-2021 INR Coag (PPP) [Relative time] 3.36 {INR} Normal [facility] Comment on above: Performed By: #### P T ####[facility] [place] [facility] Ianuvhnlqu[address] [place], [place] [address]Dr. Farhat Leal INR GUIDELINES SEE BELOW Normal [facility] Comment on above: Result Comment: MALINA RED INR: 2.0 - 3.0 CONDITIONS NOT LISTED BELOW 2.5 - 3.5 FOR PROSTHETIC HEART VALVE REPLACEMENT 2.5 - 3.5 RECURRENT THROMBOSIS Performed By: #### P T ####[facility] [place] [facility] Midgmdkkja[address] [place], [place] [address]Dr. Farhat Leal PT Coag (PPP) [Time] 33.5 s Critically high 9.0-11.6 [facility] Comment on above: Performed By: #### P T ####[facility] [place] [facility] [address]mtvqa5627 [place], [place] [address]JySkylar Leal XR CHEST 1 Von 12-14-2021 XR CHEST 1 V Normal [facility] [place] [facility] No Panel Informationon 12-01 BLANK _ [facility] Implant Date 04/22/2012 [facility] CHECKon AMS Duration (ms) 5 of 8 [facility] AMS Fallback Rate (bpm) DDIR [facility] AV Delay Adaptive Paced Minimum (ms) 300 ms [facility] AV Delay Adaptive Rate Maximum (bpm) 130 {beats}/min [facility] AV Delay Adaptive Rate Minimum (bpm) 70 {beats}/min [facility] AV Delay Adaptive Sensed Minimum (ms) 300 ms [facility] AV Delay Paced (ms) 300 ms [facility] AV Delay Sensed (ms) 300 ms [facility] Jaciel LV Pacing Polarity Unknown [facility] Jaciel LV Sensing Polarity Unknown [facility] Jaciel RA Pacing Amplitude (volts) 2.4 V [facility] Jaciel RA Pacing Polarity BI [facility] Jaciel RA Pacing Pulse Width (ms) 0.4 ms [facility] Jaciel RA Sensing Amplitude (mvolts) AUTO [facility] Jaciel RA Sensing Blanking Period (ms) 56 ms [facility] Jaciel RA Sensing Polarity BI [facility] Jaciel RA Sensing Refractory Period (ms) AUTO [facility] Jaciel RV Pacing Amplitude (volts) 3.4 V [facility] Jaciel RV Pacing Polarity BI [facility] Jaciel RV Pacing Pulse Width (ms) 0.4 ms [facility] Jaciel RV Sensing Amplitude (mvolts) AUTO [facility] Jaciel RV Sensing Blanking Period (ms) 30 ms [facility] Jaciel RV Sensing Polarity BI [facility] Jaciel RV Sensing Refractory Period (ms) 250 ms [facility] Hysteresis Rate (bpm) 60 {beats}/min [facility] Lead1 Mfg SUZETTE [facility] Lead2 Mfg SUZETTE [facility] Location RA [facility] Location RV [facility] Lower Rate (bpm) 60 {beats}/min [facility] Max Sensor Rate (bmp) 130 {beats}/min [facility] Model 513519 Monika Dominguez [facility] Model 877361 [facility] Model [id number] [facility] Pacemaker Dependent? NO [facility] PM-Device Mfg BIO [facility] PM-PMT Intervention ON [facility] PM-PVC Intervention ON [facility] PM-Rate Modulation Acceleration Reaction 4 s [facility] PM-Rate Modulation Deceleration 0.5 m [facility] PM-Rate Modulation [place] 23 [facility] PM-Rate Modulation Threshold Medium [facility] RA Bipolar Impedance ohms 448 ohm [facility] Rhythm AF with controlled ventricular rate. [facility] RV Bipolar Impedance ohms 390 ohm [facility] Serial Number [id number] [facility] Serial Number [id number] [facility] Serial Number [id number] [facility] Thresh RA Sensing Amplitude (mvolts) 2.4 mV [facility] Thresh RV Capture Amplitude (volts) 1.8 V [facility] Thresh RV Capture Duration (ms) 0.4 ms [facility] Thresh RV Sensing Amplitude (mvolts) 2.4 mV [facility] Tracking Rate (bpm) 160 {beats}/min [facility] BNPon 11-28-2021 Natriuretic peptide B (Bld) [Mass/Vol] 21220.0 pg/mL Critically high <=1,800.0 [facility] [place] [facility] Comment on above: Performed By: #### C MP, BNP, CRP ####[facility] [place] [facility] [address]vudofpfs[address] [place], [place] [address]Dr. Farhat Leal CBC AUTO DIFFon 11-28-2021 BASO # 0.0 103/ul Normal 0.0-0.1 [facility] [place] [facility] Comment on above: Performed By: #### C BC ####[facility] [place] [facility] Qfwzhxpbqp15[address] [place], [place] [address]Dr. Farhat Leal Basophils/100 WBC (Bld) 0.3 % Normal 0.2-2.0 [facility] [place] [facility] Comment on above: Performed By: #### C BC ####[facility] [place] [facility] [address] [place] [address]Dr. Farhat Leal EO # 0.1 103/ul Normal 0.0-0.7 [facility] [place] [facility] Comment on above: Performed By: #### C BC ####[facility] [place] [facility] [address]ecjcpkplm[address] [place], [place] [address]Dr. Farhat Leal Eosinophils/100 WBC (Bld) 1.0 % Normal 0.9-7.0 [facility] Comment on above: Performed By: #### C BC ####[facility] [place] [facility] [address]ix[address] [place] [address]Dr. Madelynlorri Elvis Erythrocyte distribution width (RBC) [Ratio] 14.0 % Normal 11.0-15.0 [facility] Comment on above: Performed By: #### C BC ####[facility] [place] [facility] [address] [place] [address]Dr. Farhat Leal Hematocrit (Bld) [Volume fraction] 27.6 % Critically low 42.0-54.0 [facility] Comment on above: Performed By: #### C BC ####[facility] [place] [facility] [address]rdvcith[address] [place], [place] [address]Dr. Farhat Leal Hemoglobin (Bld) [Mass/Vol] 9.0 g/dL Critically low 14.0-18.0 [facility] Comment on above: Performed By: #### C BC ####[facility] [place] [facility] Unqartrpmv[address] [place], [place] [address]Dr. Farhat Leal IG # 0.12 10e3/ul Critically high 0.00-0.03 [facility] Comment on above: Performed By: #### C BC ####[facility] [place] [facility] Fq[address]myydp[address] [place], [place] [address]Dr. Farhat Leal IG % 1.0 % Critically high 0.0-0.5 [facility] Comment on above: Performed By: #### C BC ####[facility] [place] [facility] L[address]kbmqcxz[address] [place], [place] [address]Dr. Farhat Leal LYMPH # 1.2 103/ul Normal 1.2-3.8 [facility] [place] [facility] Comment on above: Performed By: #### C BC ####[facility] [place] [facility] X[address]ictpfyvr[address] [place], [place] [address]Dr. Farhat Leal Lymphocytes/100 WBC (Bld) 9.9 % Critically low 20.5-60.0 [facility] Comment on above: Performed By: #### C BC ####[facility] [place] [facility] Rcvrscbtap[address] [place], [place] [address]Dr. Farhat Leal MANUAL DIFF REQ NO Normal [facility] Comment on above: Performed By: #### C BC ####[facility] [place] [facility] [address]ptf[address] [place] [address]Dr. Farhat Leal MCH (RBC) [Entitic mass] 30.0 pg Normal 25.9-34.0 [facility] Comment on above: Performed By: #### C BC ####[facility] [place] [facility] Eyhjqpubuz[address] [place], [place] [address]Dr. Farhat Leal MCHC (RBC) [Mass/Vol] 32.6 g/dL Normal 29.9-35.2 [facility] [place] [facility] Comment on above: Performed By: #### C BC ####[facility] [place] [facility] Nxgdcdsoxt[address] [place], [place] [address]DrSkylar Leal MCV (RBC) [Entitic vol] 92.0 fL Normal 80.0-94.0 [facility] [place] [facility] Comment on above: Performed By: #### C BC ####[facility] [place] [facility] X[address]pfamkbp[address] [place], [place] [address]DrSkylar Leal MONO # 1.1 103/ul Critically high 0.3-0.8 [facility] Comment on above: Performed By: #### C BC ####[facility] [place] [facility] Mzbtyjgisf[address] [place], [place] [address]DrSkylar Leal Monocytes/100 WBC (Bld) 9.3 % Normal 1.7-12.0 [facility] [place] [facility] Comment on above: Performed By: #### C BC ####[facility] [place] [facility] [address]av[address]biytw[address] [place], [place] [address]DrSkylar Leal NEUT # 9.3 103/ul Critically high 1.4-6.5 [facility] Comment on above: Performed By: #### C BC ####[facility] [place] [facility] Kl[address]qvebqu[address] [place], [place] [address]DrSkylar Leal Neutrophils/100 WBC (Bld) 78.5 % Critically high 43.0-75.0 [facility] [place] [facility] Comment on above: Performed By: #### C BC ####[facility] [place] [facility] [address]kvderluem[address] [place], [place] [address]DrSkylar Leal Platelet mean volume (Bld) [Entitic vol] 9.6 fL Normal 9.5-13.5 [facility] Comment on above: Performed By: #### C BC ####[facility] [place] [facility] [address] [place] [address]Dr. Farhat Leal PLT 357 103/ul Normal 150-450 [facility] Comment on above: Performed By: #### C BC ####[facility] [place] [facility] [address] [place] [id number]. Farhat Leal RBC 3.00 106/ul Critically low 4.70-6.10 [facility] Comment on above: Performed By: #### C BC ####[facility] [place] [facility] [address] [place] [address]Dr. Farhat Leal WBC 11.8 103/ul Critically high 4.0-11.0 [facility] Comment on above: Performed By: #### C BC ####[facility] [place] [facility] [address] [place] [address]DrSkylar Leal CRPon 11-28-2021 CRP 20.9 mg/dL Critically high <=1.0 [facility] Comment on above: Performed By: #### C MP, BNP, CRP ####[facility] [place] [facility] X[address]gbjbfktd[address] [place], [place] [address]Dr. Farhat Leal CULTURE OTHERon 11-28-2021 CULTURE OTHER Normal [facility] Comment on above: Performed By: #### O THCX ####[facility] [place] [facility] Cdfdellunu[address] [place], [place] [address]Dr. Farhat Leal CULTURE OTHER Normal [facility] Comment on above: Performed By: #### O THCX ####[facility] [place] [facility] [address]wf[address] [place] [id number] Leal PROF 14(COMP METB)on 022 Albumin [Mass/Vol] 1.4 g/dL Critically low 3.4-5.0 [facility] Comment on above: Performed By: #### C MP, BNP, CRP ####[facility] [place] [facility] [address]swzh[address] [place], [place] [address]DrSkylar Leal Albumin/Globulin [Mass ratio] 0.4 {ratio} Normal [facility] Comment on above: Performed By: #### C MP, BNP, CRP ####[facility] [place] [facility] [address] [place] [address]Dr. Farhat Leal ALP [Catalytic activity/Vol] 82 U/L Normal 46-116 [facility] Comment on above: Performed By: #### C MP, BNP, CRP ####[facility] [place] [facility] Snnpyissra[address] [place], [place] [address]Dr. Farhat Elvis ALT [Catalytic activity/Vol] 20 U/L Normal 16-63 [facility] Comment on above: Performed By: #### C MP, BNP, CRP ####[facility] [place] [facility] Vqmqcomute[address] [place], [place] [address]Dr. Farhat Leal Anion gap [Moles/Vol] 13.0 mmol/L Normal [facility] Comment on above: Performed By: #### C MP, BNP, CRP ####[facility] [place] [facility] Esxzznfjwa[address] [place], [place] [address]Dr. Farhat Elvis AST [Catalytic activity/Vol] 33 U/L Normal 15-37 [facility] Comment on above: Performed By: #### C MP, BNP, CRP ####[facility] [place] [facility] Uibpkiminn[address] [place], [place] [address]Dr. Farhat Leal Bilirubin [Mass/Vol] 0.7 mg/dL Normal 0.2-1.0 [facility] Comment on above: Performed By: #### C MP, BNP, CRP ####[facility] [place] [facility] [address]ripzxywzg[address] [place], [place] [address]Dr. Farhat Leal Calcium [Mass/Vol] 8.4 mg/dL Critically low 8.5-10.1 [facility] [facility] Comment on above: Performed By: #### C MP, BNP, CRP ####[facility] Yxovhzbkql[address] [place], [place] [address]Dr. Farhat Leal Chloride [Moles/Vol] 100 mmol/L Normal 98-107 [facility] Comment on above: Performed By: #### C MP, BNP, CRP ####[facility] [address] [place] [address]Dr. Farhat Leal CO2 [Moles/Vol] 23.7 mmol/L Normal 21.0-32.0 [facility] Comment on above: Performed By: #### C MP, BNP, CRP ####[facility] [address] [place] [address]Dr. Farhat Elvis Creatinine [Mass/Vol] 1.70 mg/dL Critically high 0.70-1.30 [facility] Comment on above: Performed By: #### C MP, BNP, CRP ####[facility] [address] [place] [address]Dr. Farhat Elvis EGFR-AF BOLIVIAN 48 mL/min/1.73m2 Critically low >=60 [facility] Comment on above: Performed By: #### C MP, BNP, CRP ####[facility] [address]ks[address] [place] [address]Dr. Farhat Leal EGFR-NON AF BOLIVIAN 39 mL/min/1.73m2 Critically low >=60 [facility] Comment on above: Performed By: #### C MP, BNP, CRP ####[facility] Uxjgokqumb[address] [place] [address]Dr. Farhat Elvis Globulin (S) [Mass/Vol] 3.6 g/dL Normal [facility] Comment on above: Performed By: #### C MP, BNP, CRP ####[facility] [address]xydauoit[address] [place] [address]Dr. Madelynlorri Elvis Glucose [Mass/Vol] 232 mg/dL Critically high 74-106 [facility] Comment on above: Performed By: #### C MP, BNP, CRP ####[facility] [address]zfeg[address] [place] [address]Dr. Farhat Elvis Potassium [Moles/Vol] 3.7 mmol/L Normal 3.5-5.1 [facility] Comment on above: Performed By: #### C MP, BNP, CRP ####[facility] Rsjdnardhf36[address] [place] [address]Dr. Farhat Leal Protein [Mass/Vol] 5.0 g/dL Critically low 6.4-8.2 Th [facility] Comment on above: Performed By: #### C MP, BNP, CRP ####[facility] Iogixcwniy[address] [place], [place] [address]Dr. Farhat Leal Sodium [Moles/Vol] 133 mmol/L Critically low 136-145 Th [facility] Comment on above: Performed By: #### C MP, BNP, CRP ####[facility] [address]mdqwqpldu[address] [place], [place] [address]Dr. Farhat Leal Urea nitrogen [Mass/Vol] 52.0 mg/dL Critically high 7.0-18.0 [facility] Comment on above: Performed By: #### C MP, BNP, CRP ####[facility] Qghsmeackm[address] [place], [place] [address]Dr. Farhat Leal Urea nitrogen/Creatinine [Mass ratio] 30.6 mg/mg Normal [facility] Comment on above: Performed By: #### C MP, BNP, CRP ####[facility] Hawmioayqp[address] [place], [place] [address]Dr. Farhat Leal PROTIMEon 11-28-2021 INR Coag (PPP) [Relative time] 1.29 {INR} Normal [facility] Comment on above: Performed By: #### P T ####[facility] Aiqrlocbbf[address] [place], [place] [address]Dr. Farhat Leal INR GUIDELINES SEE BELOW Normal The [facility] Comment on above: Result Comment: MALINA RED INR: 2.0 - 3.0 CONDITIONS NOT LISTED BELOW 2.5 - 3.5 FOR PROSTHETIC HEART VALVE REPLACEMENT 2.5 - 3.5 RECURRENT THROMBOSIS Performed By: #### P T ####[facility] Qdbtnzicsl[address] [place], [place] [address]Dr. Farhat Leal PT Coag (PPP) [Time] 13.7 s Critically high 9.0-11.6 [facility] Comment on above: Performed By: #### P T ####[facility] Mxgqtvhvwq[address] [place], [place] [address]Dr. Fahrat Leal [facility] 77 mm/hr Critically high <=20 [facility] Comment on above: Performed By: #### S EDR ####[facility] Cspbccfzgy[address] [place], [place] [address]Dr. Farhat Leal XR CHEST 2 Von 11-28-2021 XR CHEST 2 V Normal [facility] BNPon 11-27-2021 Natriuretic peptide B (Bld) [Mass/Vol] 50736.0 pg/mL Critically high <=1,800.0 [facility] Comment on above: Performed By: #### B ANIMAL RESCUER, CMP, CRP ####[facility] Oblztekinl[address] [place], [place] [address]Dr. Farhat Leal CBC AUTO DIFFon 11-27-2021 BASO # 0.0 103/ul Normal 0.0-0.1 [facility] Comment on above: Performed By: #### C BC ####[facility] Usnaxuvtzh[address] [place], [place] [address]Dr. Farhat Leal Basophils/100 WBC (Bld) 0.2 % Normal 0.2-2.0 [facility] Comment on above: Performed By: #### C BC ####[facility] Uykwqagebv[address] [place], [place] [address]Dr. Farhat Leal EO # 0.2 103/ul Normal 0.0-0.7 [facility] Comment on above: Performed By: #### C BC ####[facility] Nlrcxzmsbb[address] [place], [place] [address]Dr. Farhat Leal Eosinophils/100 WBC (Bld) 1.9 % Normal 0.9-7.0 [facility] Comment on above: Performed By: #### C BC ####[facility] Cucntexlro[address] [place], [place] [address]Dr. Farhat Leal Erythrocyte distribution width (RBC) [Ratio] 13.9 % Normal 11.0-15.0 [facility] Comment on above: Performed By: #### C BC ####[facility] Pgbhgkuqoj[address] [place], [place] [address]Dr. Farhat Leal Hematocrit (Bld) [Volume fraction] 28.7 % Critically low 42.0-54.0 [facility] Comment on above: Performed By: #### C BC ####[facility] [address] [place] [id number]. Farhat Leal Hemoglobin (Bld) [Mass/Vol] 9.3 g/dL Critically low 14.0-18.0 [facility] Comment on above: Performed By: #### C BC ####[facility] [address]jxl[address] [place] [address]Dr. Farhat Leal IG # 0.14 10e3/ul Critically high 0.00-0.03 [facility] Comment on above: Performed By: #### C BC ####[facility] [address]of[address] [place] [address]Dr. Farhat Leal IG % 1.2 % Critically high 0.0-0.5 [facility] Comment on above: Performed By: #### C BC ####[facility] Wmmwylqxtu[address] [place], [place] [address]Dr. Farhat Elvis LYMPH # 1.1 103/ul Critically low 1.2-3.8 [facility] Comment on above: Performed By: #### C BC ####[facility] [address]qiy[address] [place] [address]Dr. Farhat Leal Lymphocytes/100 WBC (Bld) 9.4 % Critically low 20.5-60.0 [facility] Comment on above: Performed By: #### C BC ####[facility] [address] [place] [address]Dr. Farhat Leal MANUAL DIFF REQ NO Normal [facility] Comment on above: Performed By: #### C BC ####[facility] Ej[address]yrau[address] [place] [address]Dr. Farhat Leal MCH (RBC) [Entitic mass] 29.7 pg Normal 25.9-34.0 [facility] Comment on above: Performed By: #### C BC ####[facility] [address]emermtv[address] [place] [address]Dr. Farhat Elvis MCHC (RBC) [Mass/Vol] 32.4 g/dL Normal 29.9-35.2 [facility] Comment on above: Performed By: #### C BC ####[facility] [address] [place] [phone]. Farhat Leal MCV (RBC) [Entitic vol] 91.7 fL Normal 80.0-94.0 [facility] Comment on above: Performed By: #### C BC ####[facility] [address]wt[address] [place] [phone] Leal MONO # 1.1 103/ul Critically high 0.3-0.8 [facility] Comment on above: Performed By: #### C BC ####[facility] Sw[address]wiwasxg[address] [place] [phone]. Farhat Leal Monocytes/100 WBC (Bld) 9.7 % Normal 1.7-12.0 [facility] Comment on above: Performed By: #### C BC ####[facility] [address] [place], [place] [address]Dr. Farhat Leal NEUT # 9.2 103/ul Critically high 1.4-6.5 [facility] Comment on above: Performed By: #### C BC ####[facility] V[address]kdharw[address] [place] [phone]. Farhat Leal Neutrophils/100 WBC (Bld) 77.6 % Critically high 43.0-75.0 [facility] Comment on above: Performed By: #### C BC ####[facility] [address]axaljnpb52[address] [place] [phone]. Farhat Leal Platelet mean volume (Bld) [Entitic vol] 9.5 fL Normal 9.5-13.5 [facility] Comment on above: Performed By: #### C BC ####[facility] [address] [place], [place] [address]Dr. Farhat Elvis PLT 375 103/ul Normal 150-450 [facility] Comment on above: Performed By: #### C BC ####[facility] Vkeefldaqp[address] [place] [phone]. Farhat Elvis RBC 3.13 106/ul Critically low 4.70-6.10 The [facility] Comment on above: Performed By: #### C BC ####[facility] Jewolkiouz[address] [place] [phone]. Madelynlorri Leal WBC 11.8 103/ul Critically high 4.0-11.0 [facility] Comment on above: Performed By: #### C BC ####[facility] D[address]ujhtm[address] [place] [phone]. Farhat Leal CRPon 11-27-2021 CRP 24.5 mg/dL Critically high <=1.0 [facility] Comment on above: Performed By: #### B ANIMAL RESCUER, CMP, CRP ####[facility] [address]wei[address] [place] [address]Dr. Farhat Leal CULTURE OTHERon 11-27-2021 CULTURE OTHER Normal [facility] Comment on above: Performed By: #### O THCX ####[facility] Bgrutmugyj[address] [place], [place] [address]Dr. Farhat Leal CULTURE OTHER Normal [facility] Comment on above: Performed By: #### O THCX ####[facility] Fsjmhfyyja[address] [place], [place] [address]Dr. Farhat Leal CULTURE WOUNDon 11-27-2021 CULTURE WOUND Normal [facility] Comment on above: Performed By: #### W OUNDCX ####[facility] Xf[address]qydeel[address] [place] [address]Dr. Farhat Leal POINT OF CARE GLUCOSEon 11-15 Glucose [Mass/Vol] 147 mg/dL Critically high 74-106 [facility] Comment on above: Performed By: #### P OCGLUC ####[facility] Ymtmwtwaoa[address] [place], [place] [address]Dr. Farhat Leal PROF 14(COMP METB)on 022 Albumin [Mass/Vol] 1.4 g/dL Critically low 3.4-5.0 [facility] Comment on above: Performed By: #### B ANIMAL RESCUER, CMP, CRP ####[facility] [address]znd[address] [place] [address]Dr. Farhat Leal Albumin/Globulin [Mass ratio] 0.4 {ratio} Normal [facility] Comment on above: Performed By: #### B ANIMAL RESCUER, CMP, CRP ####[facility] Ofpvufkwdz15[address] [place], [place] [address]Dr. Farhat Elvis ALP [Catalytic activity/Vol] 82 U/L Normal 46-116 [facility] Comment on above: Performed By: #### B ANIMAL RESCUER, CMP, CRP ####[facility] Ubdctncidr[address] [place], [place] [address]Dr. Farhat Lela ALT [Catalytic activity/Vol] 22 U/L Normal 16-63 [facility] Comment on above: Performed By: #### B ANIMAL RESCUER, CMP, CRP ####[facility] Iyayfbauow[address] [place], [place] [address]Dr. Farhat Leal Anion gap [Moles/Vol] 14.2 mmol/L Normal [facility] Comment on above: Performed By: #### B ANIMAL RESCUER, CMP, CRP ####[facility] Owssnqnyrc[address] [place], [place] [address]Dr. Farhat Leal AST [Catalytic activity/Vol] 35 U/L Normal 15-37 [facility] Comment on above: Performed By: #### B ANIMAL RESCUER, CMP, CRP ####[facility] Hvsyadmqyw[address] [place], [place] [address]Dr. Farhat Leal Bilirubin [Mass/Vol] 0.7 mg/dL Normal 0.2-1.0 [facility] Comment on above: Performed By: #### B ANIMAL RESCUER, CMP, CRP ####[facility] Pumscl[address]ud[address] [place], [place] [address]Dr. Farhat Leal Calcium [Mass/Vol] 8.2 mg/dL Critically low 8.5-10.1 [facility] Comment on above: Performed By: #### B ANIMAL RESCUER, CMP, CRP ####[facility] Cwgcmpezpe[address] [place], [place] [address]Dr. Farhat Leal Chloride [Moles/Vol] 99 mmol/L Normal 98-107 [facility] Comment on above: Performed By: #### B ANIMAL RESCUER, CMP, CRP ####[facility] [address]jc[address]xhertr[address] [place] [address]Dr. Farhat Leal CO2 [Moles/Vol] 22.6 mmol/L Normal 21.0-32.0 [facility] Comment on above: Performed By: #### B ANIMAL RESCUER, CMP, CRP ####[facility] Y[address]qxdmmffm[address] [place] [phone]. Farhat Leal Creatinine [Mass/Vol] 1.73 mg/dL Critically high 0.70-1.30 [facility] Comment on above: Performed By: #### B ANIMAL RESCUER, CMP, CRP ####[facility] Mbcsqhepio65[address] [place] [phone]. Farhat Elvis EGFR-AF BOLIVIAN 47 mL/min/1.73m2 Critically low >=60 [facility] Comment on above: Performed By: #### B ANIMAL RESCUER, CMP, CRP ####[facility] Osoeuocdrq[address] [place], [place] [address]Dr. Farhat Leal EGFR-NON AF BOLIVIAN 38 mL/min/1.73m2 Critically low >=60 [facility] Comment on above: Performed By: #### B ANIMAL RESCUER, CMP, CRP ####[facility] Czgacxgars[address] [place] [address]Dr. Farhat Elvis Globulin (S) [Mass/Vol] 3.7 g/dL Normal [facility] Comment on above: Performed By: #### B ANIMAL RESCUER, CMP, CRP ####[facility] Icwpdalfvr50[address] [place] [address]Dr. Madelynlorri Elvis Glucose [Mass/Vol] 220 mg/dL Critically high 74-106 [facility] Comment on above: Performed By: #### B ANIMAL RESCUER, CMP, CRP ####[facility] Kyodzskewb[address] [place] [address]Dr. Farhat Leal Potassium [Moles/Vol] 3.8 mmol/L Normal 3.5-5.1 [facility] Comment on above: Performed By: #### B ANIMAL RESCUER, CMP, CRP ####[facility] Pmroggoprt[address] [place] [address]Dr. Farhat Elvis Protein [Mass/Vol] 5.1 g/dL Critically low 6.4-8.2 Th [facility] Comment on above: Performed By: #### B ANIMAL RESCUER, CMP, CRP ####[facility] Ajoyfkvcew[address] [place] [address]Dr. Farhat Leal Sodium [Moles/Vol] 132 mmol/L Critically low 136-145 [facility] Comment on above: Performed By: #### B ANIMAL RESCUER, CMP, CRP ####[facility] Carrunrzqj[address] [place] [address]Dr. Farhat Leal Urea nitrogen [Mass/Vol] 49.0 mg/dL Critically high 7.0-18.0 [facility] Comment on above: Performed By: #### B ANIMAL RESCUER, CMP, CRP ####[facility] A[address]zvdcvw[address] [place], [place] [address]Dr. Farhat Leal Urea nitrogen/Creatinine [Mass ratio] 28.3 mg/mg Normal [facility] Comment on above: Performed By: #### B ANIMAL RESCUER, CMP, CRP ####[facility] Scrnajvvuz[address] [place], [place] [address]Dr. Farhat Leal PROTIMEon 11-27-2021 INR Coag (PPP) [Relative time] 1.25 {INR} Normal [facility] Comment on above: Performed By: #### P T ####[facility] Jtjwargxri[address] [place], [place] [address]Dr. Farhat Leal INR GUIDELINES SEE BELOW Normal [facility] Comment on above: Result Comment: MALINA RED INR: 2.0 - 3.0 CONDITIONS NOT LISTED BELOW 2.5 - 3.5 FOR PROSTHETIC HEART VALVE REPLACEMENT 2.5 - 3.5 RECURRENT THROMBOSIS Performed By: #### P T ####[facility] Jgafuwbtjd[address] [place], [place] [address]Dr. Farhat Leal PT Coag (PPP) [Time] 13.3 s Critically high 9.0-11.6 [facility] Comment on above: Performed By: #### P T ####[facility] Abqievpjbc08[address] [place], [place] [address]Dr. Farhat Leal [facility] 60 mm/hr Critically high <=20 [facility] Comment on above: Performed By: #### S EDR ####[facility] Ovljtyfjgg[address] [place] [address]Dr. Farhat Leal VANCOMYCIN TROUGHon 11-28-19 22 VANCOMYCIN TROUGH 21.2 ug/ml Critically high 5.0-20.0 Th e [facility] Comment on above: Performed By: #### V ANCT ####[facility] Jmuctnqzfd[address] [place], [place] [address]Dr. Farhat Leal XR CHEST 1 Von 11-27-2021 XR CHEST 1 V Normal [facility] BNPon 11-26-2021 Natriuretic peptide B (Bld) [Mass/Vol] 12459.0 pg/mL Critically high <=1,800.0 [facility] Comment on above: Performed By: #### B ANIMAL RESCUER, CRP, CMP ####[facility] Zcsguvqiyo[address] [place], [place] [address]Dr. Farhat Elvis CBC AUTO DIFFon 11-26-2021 BASO # 0.0 103/ul Normal 0.0-0.1 [facility] Comment on above: Performed By: #### C BC ####[facility] Olqbrtbtub[address] [place], [place] [address]Dr. Madelynlorri Leal Basophils/100 WBC (Bld) 0.2 % Normal 0.2-2.0 [facility] Comment on above: Performed By: #### C BC ####[facility] Fqwopevaax[address] [place], [place] [address]Dr. Farhat Elvis EO # 0.0 103/ul Normal 0.0-0.7 [facility] Comment on above: Performed By: #### C BC ####[facility] [address]nuvibvkew[address] [place], [place] [address]Dr. Madelynlorri Leal Eosinophils/100 WBC (Bld) 0.3 % Critically low 0.9-7.0 [facility] Comment on above: Performed By: #### C BC ####[facility] Ftqjsvnwqp[address] [place], [place] [address]Dr. Farhat Leal Erythrocyte distribution width (RBC) [Ratio] 13.9 % Normal 11.0-15.0 [facility] Comment on above: Performed By: #### C BC ####[facility] Bhbkvomrzg4238 [place] [address]DrSkylar Leal Hematocrit (Bld) [Volume fraction] 27.3 % Critically low 42.0-54.0 [facility] Comment on above: Performed By: #### C BC ####[facility] Qbshxyslen6128 [place] [address]DrSkylar Leal Hemoglobin (Bld) [Mass/Vol] 8.8 g/dL Critically low 14.0-18.0 [facility] Comment on above: Performed By: #### C BC ####[facility] Uleihwbjnp[address] [place], [place] [address]DrSkylar Leal IG # 0.17 10e3/ul Critically high 0.00-0.03 [facility] Comment on above: Performed By: #### C BC ####[facility] M[address]bo[address]fqb[address] [place], [place] [address]DrSkylar Leal IG % 1.2 % Critically high 0.0-0.5 [facility] Comment on above: Performed By: #### C BC ####[facility] Qpqycpvdeg[address] [place], [place] [address]DrSkylar Leal LYMPH # 0.7 103/ul Critically low 1.2-3.[address] [facility] Comment on above: Performed By: #### C BC ####[facility] Fevtwjjhso[address] [place], [place] [address]DrSkylar Leal Lymphocytes/100 WBC (Bld) 4.8 % Critically low 20.5-60.0 [facility] Comment on above: Performed By: #### C BC ####[facility] Beebpqsdda[address] [place], [place] [address]DrSkylar Leal MANUAL DIFF REQ NO Normal [facility] Comment on above: Performed By: #### C BC ####[facility] [address]vwpoyrzb24[address] [place] [address]DrSkylar Leal MCH (RBC) [Entitic mass] 29.9 pg Normal 25.9-34.0 [facility] Comment on above: Performed By: #### C BC ####[facility] [address]jltutbxpb3075 [place] [address]DrSkylar Leal MCHC (RBC) [Mass/Vol] 32.2 g/dL Normal 29.9-35.2 [facility] Comment on above: Performed By: #### C BC ####[facility] Mspzzabmim1197 [place] [address]DrSkylar Leal MCV (RBC) [Entitic vol] 92.9 fL Normal 80.0-94.0 [facility] Comment on above: Performed By: #### C BC ####[facility] R[address]orzoz[address] [place], [place] [address]DrSkylar Leal MONO # 1.3 103/ul Critically high 0.3-0.8 [facility] Comment on above: Performed By: #### C BC ####[facility] Uxzcfbzdxl[address] [place], [place] [address]DrSkylar Leal Monocytes/100 WBC (Bld) 9.6 % Normal 1.7-12.0 [facility] Comment on above: Performed By: #### C BC ####[facility] [address]wfqbhvz[address] [place], [place] [address]DrSkylar Leal NEUT # 11.4 103/ul Critically high 1.4-6.5 [facility] Comment on above: Performed By: #### C BC ####[facility] Iytzsedwls[address] [place], [place] [address]DrSkylar Leal Neutrophils/100 WBC (Bld) 83.9 % Critically high 43.0-75.0 [facility] Comment on above: Performed By: #### C BC ####[facility] Yrntmbioxy[address] [place], [place] [address]DrSkylar Leal Platelet mean volume (Bld) [Entitic vol] 9.6 fL Normal 9.5-13.5 [facility] Comment on above: Performed By: #### C BC ####[facility] V[address]mugm[address] [place], [place] [address]DrSkylar Leal PLT 395 103/ul Normal 150-450 [facility] Comment on above: Performed By: #### C BC ####[facility] Osy[address]oxsew[address] [place] [phone]. Farhat Leal RBC 2.94 106/ul Critically low 4.70-6.10 [facility] Comment on above: Performed By: #### C BC ####[facility] Rhobmtgehq56[address] [place] [phone]. Farhat Leal WBC 13.6 103/ul Critically high 4.0-11.0 [facility] Comment on above: Performed By: #### C BC ####[facility] Mffmjheqnq8942 [place] [phone]. Farhat Elvis CRPon 11-26-2021 CRP [Mass/Vol] mg/L Critically high <=1.0 [facility] Comment on above: Performed By: #### B ANIMAL RESCUER, CRP, CMP ####[facility] [address]xsulopoqz44[address] [place] [address]Dr. Farhat Elvis PROF 14(COMP METB)on 11-26- 022 Albumin [Mass/Vol] 1.5 g/dL Critically low 3.4-5.0 [facility] Comment on above: Performed By: #### B ANIMAL RESCUER, CRP, CMP ####[facility] Ses[address]zljvps[address] [place] [phone]. Farhat Leal Albumin/Globulin [Mass ratio] 0.4 {ratio} Normal [facility] Comment on above: Performed By: #### B ANIMAL RESCUER, CRP, CMP ####[facility] Expxdwezxu78[address] [place] [phone]. Farhat Elvis ALP [Catalytic activity/Vol] 88 U/L Normal 46-116 [facility] Comment on above: Performed By: #### B ANIMAL RESCUER, CRP, CMP ####[facility] Fjdhddbwwu[address] [place] [address]Dr. Farhat Leal ALT [Catalytic activity/Vol] 29 U/L Normal 16-63 [facility] Comment on above: Performed By: #### B ANIMAL RESCUER, CRP, CMP ####[facility] Ewgqouhqfk7[address] [place] [phone]. Farhat Leal Anion gap [Moles/Vol] 13.3 mmol/L Normal [facility] Comment on above: Performed By: #### B ANIMAL RESCUER, CRP, CMP ####[facility] Tvkghwlgsb93[address] [place] [phone]. Farhat Leal AST [Catalytic activity/Vol] 32 U/L Normal 15-37 [facility] Comment on above: Performed By: #### B ANIMAL RESCUER, CRP, CMP ####[facility] Vrhevkmtzh8[address] [place] [address]Dr. Farhat Leal Bilirubin [Mass/Vol] 0.6 mg/dL Normal 0.2-1.0 [facility] Comment on above: Performed By: #### B ANIMAL RESCUER, CRP, CMP ####[facility] Z[address]fsftrnyt22[address] [place] [address]Dr. Farhat Leal Calcium [Mass/Vol] 8.0 mg/dL Critically low 8.5-10.1 [facility] Comment on above: Performed By: #### B ANIMAL RESCUER, CRP, CMP ####[facility] Fnzwffatqe[address] [place] [address]Dr. Farhat Leal Chloride [Moles/Vol] 98 mmol/L Normal 98-107 [facility] Comment on above: Performed By: #### B ANIMAL RESCUER, CRP, CMP ####[facility] Vrxxsdiiqu7485 [place] [phone]. Farhat Leal CO2 [Moles/Vol] 23.7 mmol/L Normal 21.0-32.0 [facility] Comment on above: Performed By: #### B ANIMAL RESCUER, CRP, CMP ####[facility] Qfdmatspij25[address] [place] [address]Dr. Farhat Leal Creatinine [Mass/Vol] 2.08 mg/dL Critically high 0.70-1.30 [facility] Comment on above: Performed By: #### B ANIMAL RESCUER, CRP, CMP ####[facility] [address]uf[address]hipo[address] [place] [phone]. Farhat Leal EGFR-AF BOLIVIAN 38 mL/min/1.73m2 Critically low >=60 [facility] Comment on above: Performed By: #### B ANIMAL RESCUER, CRP, CMP ####[facility] [place] [facility] [address] [place] [address]Dr. Farhat Leal EGFR-NON AF BOLIVIAN 31 mL/min/1.73m2 Critically low >=60 [facility] Comment on above: Performed By: #### B ANIMAL RESCUER, CRP, CMP ####[facility] [place] [facility] [address] [place] [place] [address]Dr. Farhat Leal Globulin (S) [Mass/Vol] 3.7 g/dL Normal [facility] Comment on above: Performed By: #### B ANIMAL RESCUER, CRP, CMP ####[facility] [place] [facility] [address] [place] [place] [address]Dr. Farhat Leal Glucose [Mass/Vol] 315 mg/dL Critically high 74-106 [facility] Comment on above: Performed By: #### B ANIMAL RESCUER, CRP, CMP ####[facility] [place] [facility] Hzmynhnujc[address] [place], [place] [address]Dr. Farhat Leal Potassium [Moles/Vol] 4.0 mmol/L Normal 3.5-5.1 [facility] Comment on above: Performed By: #### B ANIMAL RESCUER, CRP, CMP ####[facility] [place] [facility] Slsjo[address]elyf[address] [place], [place] [address]Dr. Farhat Leal Protein [Mass/Vol] 5.2 g/dL Critically low 6.4-8.2 [facility] Comment on above: Performed By: #### B ANIMAL RESCUER, CRP, CMP ####[facility] [place] [facility] Iemajqfqfx[address] [place], [place] [address]Dr. Farhat Leal Sodium [Moles/Vol] 131 mmol/L Critically low 136-145 Th [facility] Comment on above: Performed By: #### B ANIMAL RESCUER, CRP, CMP ####[facility] [place] [facility] Lhoilpcbtq[address] [place], [place] [address]Dr. Farhat Leal Urea nitrogen [Mass/Vol] 50.0 mg/dL Critically high 7.0-18.0 [facility] Comment on above: Performed By: #### B ANIMAL RESCUER, CRP, CMP ####[facility] [place] [facility] [address] [place] [address]Dr. Farhat Leal Urea nitrogen/Creatinine [Mass ratio] 24.0 mg/mg Normal [facility] [place] [facility] Comment on above: Performed By: #### B ANIMAL RESCUER, CRP, CMP ####[facility] [place] [facility] [address] [place] [address]Dr. Farhat Leal PROTIMEon 11-26-2021 INR Coag (PPP) [Relative time] 1.31 {INR} Normal [facility] [place] [facility] Comment on above: Performed By: #### P T ####[facility] [place] [facility] [address] [place] [address]Dr. Farhat Leal INR GUIDELINES SEE BELOW Normal [facility] Comment on above: Result Comment: MALINA RED INR: 2.0 - 3.0 CONDITIONS NOT LISTED BELOW 2.5 - 3.5 FOR PROSTHETIC HEART VALVE REPLACEMENT 2.5 - 3.5 RECURRENT THROMBOSIS Performed By: #### P T ####[facility] [place] [facility] Suzcoquqtp[address] [place], [place] [address]Dr. Farhat Leal PT Coag (PPP) [Time] 13.9 s Critically high 9.0-11.6 [facility] [place] [facility] Comment on above: Performed By: #### P T ####[facility] [place] [facility] Xlxumwaqhb[address] [place], [place] [address]Dr. Madelynlorri Leal SED RATE MCCALL CREEKERGREN 2021 SED RATE 87 mm/hr Critically high <=20 [facility] Comment on above: Performed By: #### S EDR ####[facility] [place] [facility] Awwaziedps[address] [place], [place] [address]Dr. Farhat Leal BNPon 11-25-2021 Natriuretic peptide B (Bld) [Mass/Vol] 80631.0 pg/mL Critically high <=1,800.0 [facility] [place] [facility] Comment on above: Performed By: #### C MP, BNP, CRP ####[facility] [place] [facility] Nymmyhmqbs216[address] [place], [place] [address]Dr. Farhat Leal CBC AUTO DIFFon 11-25-2021 BASO # 0.0 103/ul Normal 0.0-0.1 [facility] Comment on above: Performed By: #### C BC ####[facility] [place] [facility] [address] [place] [id number]. Farhat Leal Basophils/100 WBC (Bld) 0.4 % Normal 0.2-2.0 [facility] [place] [facility] Comment on above: Performed By: #### C BC ####[facility] [place] [facility] Riedjerzbb[address] [place] [phone]. Farhat Leal EO # 0.1 103/ul Normal 0.0-0.7 [facility] [place] [facility] Comment on above: Performed By: #### C BC ####[facility] [place] [facility] [address]psaxjxami[address] [place], [place] [address]Dr. Farhat Leal Eosinophils/100 WBC (Bld) 1.2 % Normal 0.9-7.0 [facility] Comment on above: Performed By: #### C BC ####[facility] [place] [facility] Xaxotzuvfe[address] [place], [place] [address]Dr. Farhat Leal Erythrocyte distribution width (RBC) [Ratio] 13.7 % Normal 11.0-15.0 [facility] Comment on above: Performed By: #### C BC ####[facility] [place] [facility] Ifdqbecedg[address] [place], [place] [address]Dr. Farhat Leal Hematocrit (Bld) [Volume fraction] 29.6 % Critically low 42.0-54.0 [facility] Comment on above: Performed By: #### C BC ####[facility] [place] [facility] Knnyatkvln[address] [place], [place] [address]Dr. Farhat Leal Hemoglobin (Bld) [Mass/Vol] 9.3 g/dL Critically low 14.0-18.0 [facility] Comment on above: Performed By: #### C BC ####[facility] [place] [facility] F[address]ubfmw[address] [place], [place] [address]Dr. Farhat Leal IG # 0.15 10e3/ul Critically high 0.00-0.03 [facility] Comment on above: Performed By: #### C BC ####[facility] [place] [facility] S[address]fnbq[address] [place], [place] [address]Dr. Farhat Leal IG % 1.4 % Critically high 0.0-0.5 [facility] Comment on above: Performed By: #### C BC ####[facility] [place] [facility] [address]sf[address] [place] [phone]. Farhat Leal LYMPH # 0.8 103/ul Critically low 1.2-3.[address] [facility] Comment on above: Performed By: #### C BC ####[facility] [place] [facility] Qz[address]djihxm39[address] [place] [phone]. Farhat Leal Lymphocytes/100 WBC (Bld) 7.3 % Critically low 20.5-60.0 [facility] Comment on above: Performed By: #### C BC ####[facility] [place] [facility] Gfkdwbwdtw[address] [place] [phone]. Farhat Leal MANUAL DIFF REQ NO Normal [facility] Comment on above: Performed By: #### C BC ####[facility] [place] [facility] Oxvoxujadi[address] [place] [phone]. Farhat Leal MCH (RBC) [Entitic mass] 29.3 pg Normal 25.9-34.0 [facility] Comment on above: Performed By: #### C BC ####[facility] [place] [facility] Rsdrziyxik[address] [place] [phone]. Farhat Leal MCHC (RBC) [Mass/Vol] 31.4 g/dL Normal 29.9-35.2 [facility] [place] [facility] Comment on above: Performed By: #### C BC ####[facility] [place] [facility] D[address]jbsp[address] [place] [phone]. Farhat Leal MCV (RBC) [Entitic vol] 93.4 fL Normal 80.0-94.0 [facility] Comment on above: Performed By: #### C BC ####[facility] [place] [facility] C[address]ktsti[address] [place] [id number] Leal MONO # 1.3 103/ul Critically high 0.3-0.8 [facility] Comment on above: Performed By: #### C BC ####[facility] [place] [facility] [address]gdu[address] [place] [phone]. Farhat Leal Monocytes/100 WBC (Bld) 12.3 % Critically high 1.7-12.0 [facility] [place] [facility] Comment on above: Performed By: #### C BC ####[facility] [place] [facility] [address]kw[address] [place] [address]Dr. Farhat Leal NEUT # 8.4 103/ul Critically high 1.4-6.5 [facility] Comment on above: Performed By: #### C BC ####[facility] [place] [facility] [address]ora[address] [place] [address]Dr. Farhat Leal Neutrophils/100 WBC (Bld) 77.4 % Critically high 43.0-75.0 [facility] Comment on above: Performed By: #### C BC ####[facility] [place] [facility] [address]ete[address] [place] [address]Dr. Farhat Leal Platelet mean volume (Bld) [Entitic vol] 9.8 fL Normal 9.5-13.5 [facility] [place] [facility] Comment on above: Performed By: #### C BC ####[facility] [place] [facility] [address]br[address] [place] [address]Dr. Farhat Leal PLT 390 103/ul Normal 150-450 [facility] [place] [facility] Comment on above: Performed By: #### C BC ####[facility] [place] [facility] [address] [place] [address]Dr. Farhat Leal RBC 3.17 106/ul Critically low 4.70-6.10 [facility] Comment on above: Performed By: #### C BC ####[facility] [place] [facility] [address] [place] [address]Dr. Farhat Leal WBC 10.9 103/ul Normal 4.0-11.0 [facility] [place] [facility] Comment on above: Performed By: #### C BC ####[facility] [place] [facility] [address] [place] [phone] Farhat Elvis CRPon 11-25-2021 CRP 27.2 mg/dL Critically high <=1.0 [facility] Comment on above: Performed By: #### C MP, BNP, CRP ####[facility] [place] [facility] O[address]ogu[address] [place] [phone] Leal PROF 14(COMP METB)on 10-11-2 022 Albumin [Mass/Vol] 1.5 g/dL Critically low 3.4-5.0 [facility] Comment on above: Performed By: #### C MP, BNP, CRP ####[facility] [place] [facility] Euslesmrrk[address] [place], [place] [address]Dr. Farhat Leal Albumin/Globulin [Mass ratio] 0.4 {ratio} Normal [facility] Comment on above: Performed By: #### C MP, BNP, CRP ####[facility] [place] [facility] Kkmhcloezx[address] [place], [place] [address]Dr. Farhat Leal ALP [Catalytic activity/Vol] 86 U/L Normal 46-116 [facility] Comment on above: Performed By: #### C MP, BNP, CRP ####[facility] [place] [facility] Vghfglzlha[address] [place], [place] [address]Dr. Farhat Leal ALT [Catalytic activity/Vol] 34 U/L Normal 16-63 [facility] Comment on above: Performed By: #### C MP, BNP, CRP ####[facility] [place] [facility] Gsarzbkwme[address] [place], [place] [address]Dr. Farhat Leal Anion gap [Moles/Vol] 17.8 mmol/L Normal [facility] Comment on above: Performed By: #### C MP, BNP, CRP ####[facility] [place] [facility] Ublsoextoz[address] [place], [place] [address]Dr. Farhat Leal AST [Catalytic activity/Vol] 48 U/L Critically high 15-37 [facility] Comment on above: Performed By: #### C MP, BNP, CRP ####[facility] [place] [facility] Bketygkoaf[address] [place], [place] [address]Dr. Farhat Leal Bilirubin [Mass/Vol] 0.8 mg/dL Normal 0.2-1.0 [facility] Comment on above: Performed By: #### C MP, BNP, CRP ####[facility] [place] [facility] Jrxtdtenbz[address] [place], [place] [address]Dr. Farhat Leal Calcium [Mass/Vol] 8.3 mg/dL Critically low 8.5-10.1 [facility] Comment on above: Performed By: #### C MP, BNP, CRP ####[facility] [place] [facility] S[address]rydsam[address] [place] [address]Dr. Farhat Leal Chloride [Moles/Vol] 97 mmol/L Critically low 98-107 [facility] [place] [facility] Comment on above: Performed By: #### C MP, BNP, CRP ####[facility] [place] [facility] [address]rdgnc36[address] [place] [address]Dr. Farhat Leal CO2 [Moles/Vol] 23.0 mmol/L Normal 21.0-32.0 [facility] Comment on above: Performed By: #### C MP, BNP, CRP ####[facility] [place] [facility] Klbyfewiri[address] [place] [address]Dr. Farhat Leal Creatinine [Mass/Vol] 1.68 mg/dL Critically high 0.70-1.30 [facility] Comment on above: Performed By: #### C MP, BNP, CRP ####[facility] [place] [facility] Tqmrdncvmi[address] [place], [place] [address]Dr. Farhat Leal EGFR-AF BOLIVIAN 48 mL/min/1.73m2 Critically low >=60 [facility] Comment on above: Performed By: #### C MP, BNP, CRP ####[facility] [place] [facility] Toifhmrupa[address] [place], [place] [address]Dr. Farhat Leal EGFR-NON AF BOLIVIAN 40 mL/min/1.73m2 Critically low >=60 [facility] Comment on above: Performed By: #### C MP, BNP, CRP ####[facility] [place] [facility] Piogritdpd312[address] [place], [place] [address]Dr. Farhat Leal Globulin (S) [Mass/Vol] 3.9 g/dL Normal [facility] Comment on above: Performed By: #### C MP, BNP, CRP ####[facility] [place] [facility] Tenuwigmnr[address] [place] [address]Dr. Farhat Leal Glucose [Mass/Vol] 282 mg/dL Critically high 74-106 [facility] Comment on above: Performed By: #### C MP, BNP, CRP ####[facility] [place] [facility] Quwqolnczs[address] [place], [place] [address]Dr. Farhat Leal Potassium [Moles/Vol] 4.8 mmol/L Normal 3.5-5.1 [facility] Comment on above: Performed By: #### C MP, BNP, CRP ####[facility] [place] [facility] R[address]obccr27[address] [place] [address]Dr. Farhat Leal Protein [Mass/Vol] 5.4 g/dL Critically low 6.4-8.2 [facility] Comment on above: Performed By: #### C MP, BNP, CRP ####[facility] [place] [facility] Yhdlobevum[address] [place], [place] [address]Dr. Farhat Leal Sodium [Moles/Vol] 133 mmol/L Critically low 136-145 Th [facility] Comment on above: Performed By: #### C MP, BNP, CRP ####[facility] [place] [facility] Hkfebnwxsc8[address] [place], [place] [address]Dr. Farhat Leal Urea nitrogen [Mass/Vol] 40.0 mg/dL Critically high 7.0-18.0 [facility] Comment on above: Performed By: #### C MP, BNP, CRP ####[facility] [place] [facility] Ztssfgnvcw[address] [place], [place] [address]Dr. Farhat Leal Urea nitrogen/Creatinine [Mass ratio] 23.8 mg/mg Normal [facility] Comment on above: Performed By: #### C MP, BNP, CRP ####[facility] [place] [facility] Etvjvpryde[address] [place], [place] [address]Dr. Farhat Leal PROTIMEon 11-25-2021 INR Coag (PPP) [Relative time] 1.48 {INR} Normal [facility] Comment on above: Performed By: #### P T ####[facility] [place] [facility] Iftcbtyooa[address] [place], [place] [address]Dr. Farhat Leal INR GUIDELINES SEE BELOW Normal [facility] Comment on above: Result Comment: MALINA RED INR: 2.0 - 3.0 CONDITIONS NOT LISTED BELOW 2.5 - 3.5 FOR PROSTHETIC HEART VALVE REPLACEMENT 2.5 - 3.5 RECURRENT THROMBOSIS Performed By: #### P T ####[facility] [place] [facility] Vcjdgrkfua[address] [place], [place] [address]Dr. Farhat Leal PT Coag (PPP) [Time] 15.6 s Critically high 9.0-11.6 [facility] [place] [facility] Comment on above: Performed By: #### P T ####[facility] [place] [facility] Kveplymnpq[address] [place], [place] [address]Dr. Farhat Leal SED RATE WESTERGRENon 2021 SED RATE 76 mm/hr Critically high <=20 [facility] Comment on above: Performed By: #### S EDR ####[facility] [place] [facility] Wjbcfkunek[address] [place], [place] [address]Dr. Farhat Leal BNPon 11-24-2021 Natriuretic peptide B (Bld) [Mass/Vol] 61793.0 pg/mL Critically high <=1,800.0 [facility] [place] [facility] Comment on above: Performed By: #### B ANIMAL RESCUER, CMP, CRP ####[facility] [place] [facility] Nkichdmraa[address] [place], [place] [address]Dr. Farhat Leal CBC AUTO DIFFon 11-24-2021 BASO # 0.0 103/ul Normal 0.0-0.1 [facility] Comment on above: Performed By: #### C BC ####[facility] [place] [facility] Xqdwbsdnpb[address] [place], [place] [address]Dr. Farhat Leal Basophils/100 WBC (Bld) 0.3 % Normal 0.2-2.0 [facility] [place] [facility] Comment on above: Performed By: #### C BC ####[facility] [place] [facility] Sazzkrwhqy[address] [place], [place] [address]Dr. Farhat Leal EO # 0.2 103/ul Normal 0.0-0.7 [facility] [place] [facility] Comment on above: Performed By: #### C BC ####[facility] [place] [facility] Jqckbcdggs[address] [place], [place] [address]Dr. Farhat Leal Eosinophils/100 WBC (Bld) 1.2 % Normal 0.9-7.0 [facility] [place] [facility] Comment on above: Performed By: #### C BC ####[facility] [place] [facility] Uwqegnkbcn[address] [place], [place] [address]Dr. Farhat Leal Erythrocyte distribution width (RBC) [Ratio] 13.5 % Normal 11.0-15.0 [facility] [place] [facility] Comment on above: Performed By: #### C BC ####[facility] [place] [facility] [address]gm[address] [place] [address]Dr. Farhat Leal Hematocrit (Bld) [Volume fraction] 31.1 % Critically low 42.0-54.0 [facility] Comment on above: Performed By: #### C BC ####[facility] [place] [facility] [address]ehz[address]cfpy[address] [place] [address]Dr. Madelynlorri Leal Hemoglobin (Bld) [Mass/Vol] 10.0 g/dL Critically low 14.0-18.0 [facility] [place] [facility] Comment on above: Performed By: #### C BC ####[facility] [place] [facility] [address]xuepnsp[address] [place] [address]Dr. Farhat Leal IG # 0.13 10e3/ul Critically high 0.00-0.03 [facility] Comment on above: Performed By: #### C BC ####[facility] [place] [facility] Tftbfoctij[address] [place], [place] [address]Dr. Farhat Leal IG % 1.0 % Critically high 0.0-0.5 [facility] Comment on above: Performed By: #### C BC ####[facility] Ibwdxbicpj8[address] [place], [place] [address]Dr. Madelynlorri Leal LYMPH # 0.7 103/ul Critically low 1.2-3.[address] [facility] Comment on above: Performed By: #### C BC ####[facility] [place] [facility] K[address]ocmdw[address] [place] [address]Dr. Farhat Leal Lymphocytes/100 WBC (Bld) 4.9 % Critically low 20.5-60.0 [facility] Comment on above: Performed By: #### C BC ####[facility] F[address]pspur[address] [place] [address]Dr. Madelynlorri Leal MANUAL DIFF REQ NO Normal [facility] Comment on above: Performed By: #### C BC ####[facility] [place] [facility] V[address]hqst[address] [place] [address]Dr. Farhat Leal MCH (RBC) [Entitic mass] 29.6 pg Normal 25.9-34.0 [facility] Comment on above: Performed By: #### C BC ####[facility] Ebsrjzwyto[address] [place] [phone]. Farhat Elvis MCHC (RBC) [Mass/Vol] 32.2 g/dL Normal 29.9-35.2 [facility] Comment on above: Performed By: #### C BC ####[facility] Blb[address]uvqo[address] [place] [phone]. Farhat Leal MCV (RBC) [Entitic vol] 92.0 fL Normal 80.0-94.0 [facility] Comment on above: Performed By: #### C BC ####[facility] [address]ipfvy[address] [place] [phone]. Farhat Leal MONO # 1.3 103/ul Critically high 0.3-0.8 [facility] Comment on above: Performed By: #### C BC ####[facility] Incrsukfow94[address] [place] [address]Dr. Farhat Leal Monocytes/100 WBC (Bld) 9.6 % Normal 1.7-12.0 [facility] Comment on above: Performed By: #### C BC ####[facility] [address]waqdimals[address] [place], [place] [address]Dr. Farhat Leal NEUT # 11.2 103/ul Critically high 1.4-6.5 [facility] Comment on above: Performed By: #### C BC ####[facility] Prdiswqbvr[address] [place], [place] [address]Dr. Farhat Leal Neutrophils/100 WBC (Bld) 83.0 % Critically high 43.0-75.0 [facility] Comment on above: Performed By: #### C BC ####[facility] [address]htxhiqk[address] [place], [place] [address]Dr. Farhat Leal Platelet mean volume (Bld) [Entitic vol] 9.5 fL Normal 9.5-13.5 [facility] Comment on above: Performed By: #### C BC ####[facility] Idftnlxncu[address] [place], [place] [address]Dr. Farhat Leal PLT 395 103/ul Normal 150-450 [facility] Comment on above: Performed By: #### C BC ####[facility] Cxnpnknhwq85[address] [place] [phone]. Farhat Leal RBC 3.38 106/ul Critically low 4.70-6.10 [facility] Comment on above: Performed By: #### C BC ####[facility] Fpwpdlsgpb8027 [place], [place] [address]Iq. Farhat Leal WBC 13.4 103/ul Critically high 4.0-11.0 [facility] Comment on above: Performed By: #### C BC ####[facility] Bnhcnhogrm[address] [place] [phone]. Farhat Leal CRPon 11-24-2021 CRP 27.8 mg/dL Critically high <=1.0 [facility] Comment on above: Performed By: #### B ANIMAL RESCUER, CMP, CRP ####[facility] Savcljzfrt[address] [place], [place] [address]Dr. Farhat Leal CULTURE ANAEROBICon 11-25-19 22 CULTURE ANAEROBIC Culture Observations : NO GROWTH OF ANAEROBES AT 72 HOURS. [facility] Comment on above: Performed By: #### A NACX ####[facility] [place] [facility] Ppeqrrwwng[address] [place], [place] [address]Dr. Farhat Leal CULTURE ANAEROBIC Culture Observations : NO GROWTH OF ANAEROBES AT 72 HOURS. [facility] Comment on above: Performed By: #### A NACX ####[facility] [address]czmeljf[address] [place], [place] [address]Dr. Farhat Leal CULTURE ANAEROBIC Culture Observations : No growth of anaerobes at 72 hours. [facility] Comment on above: Performed By: #### A NACX ####[facility] [place] [facility] Viookzmxmy[address] [place], [place] [address]Dr. Farhat Leal CULTURE ANAEROBIC Culture Observations : No growth of anaerobes at 72 hours. [facility] Comment on above: Performed By: #### A NACX ####[facility] Dtuxylgyzm[address] [place], [place] [address]Dr. Farhat Leal CULTURE URINEon 11-24-2021 CULTURE URINE Culture Observations : NO GROWTH. [facility] Comment on above: Performed By: #### U RCX ####[facility] Notfhwvvqt[address] [place], [place] [address]Dr. Farhat Leal ECHOCARDIO M/2D COMPLETEon 1 ECHOCARDIO M/2D COMPLETE Normal [facility] ER URINE PROFILEon 2 Bilirubin Ql (U) Negative Normal NEGATIVE [facility] Comment on above: Performed By: #### E RUR ####[facility] Phcpbwzzjg[address] [place], [place] [address]Dr. Farhat Leal Clarity (U) CLEAR Normal CLEAR [facility] Comment on above: Performed By: #### E RUR ####[facility] Oazjwlkqnk[address] [place], [place] [address]Dr. Farhat Leal Color (U) YELLOW Normal YELLOW [facility] Comment on above: Performed By: #### E RUR ####[facility] Aplxvgikua[address] [place], [place] [address]Dr. Farhat Leal ERUAHD A micrscopic examination will be performed if indicated. Normal [facility] Comment on above: Performed By: #### E RUR ####[facility] Heblgnihdu[address] [place], [place] [address]Dr. Farhat Leal Glucose Ql (U) Negative Normal NEGATIVE [facility] Comment on above: Performed By: #### E RUR ####[facility] [place] [facility] Vwcjgswmqc[address] [place], [place] [address]Dr. Farhat Leal Hemoglobin Ql (U) Negative Normal NEGATIVE [facility] Comment on above: Performed By: #### E RUR ####[facility] [place] [facility] Miofhavgkz[address] [place], [place] [address]Dr. Farhat Leal Ketones Ql (U) TRACE Abnormal NEGATIVE [facility] Comment on above: Performed By: #### E RUR ####[facility] [place] [facility] Mkbplgwqke[address] [place], [place] [address]Dr. Farhat Leal LEUKOCYTES Negative Normal NEGATIVE [facility] Comment on above: Performed By: #### E RUR ####[facility] Hhovzjxhis[address] [place], [place] [address]Dr. Farhat Leal Nitrite Ql (U) Negative Normal NEGATIVE [facility] Comment on above: Performed By: #### E RUR ####[facility] [place] [facility] Lqmgtibxte[address] [place], [place] [address]Dr. Farhat Leal pH (U) 5.5 [pH] Normal 5-9 [facility] Comment on above: Performed By: #### E RUR ####[facility] [place] [facility] Vjbdgpoerv[address] [place], [place] [address]Dr. Farhat Leal SPEC GRAVITY 1.015 Normal 1.005-<=1.[address] [place] [address] Comment on above: Performed By: #### E RUR ####[facility] [place] [facility] Cyounqpyxm[address] [place], [place] [address]Dr. Farhat Leal UA PROTEIN Negative Normal NEGATIVE/ TRACE [facility] Comment on above: Performed By: #### E RUR ####[facility] [place] [facility] Eyuevarhqr[address] [place], [place] [address]Dr. Farhat Leal UR MICRO IND NOT INDICATED Normal [facility] Comment on above: Performed By: #### E RUR ####[facility] [place] [facility] Wopjwfbbgy[address] [place], [place] [address]Dr. Farhat Leal Urobilinogen Qn (U) 0.2 {Boyd'U}/dL Normal 0.2 - 1. 0 [facility] Comment on above: Performed By: #### E RUR ####[facility] Ttmlgwxrpa[address] [place], [place] [address]Dr. Farhat Leal GRAM STAINon 11-24-2021 DIPHTHEROIDS Normal [facility] [place] [facility] Comment on above: Performed By: #### G STAIN ####[facility] Jtwanidrrs[address] [place], [place] [address]Dr. Farhat Leal EPITHELIALS Normal [facility] Comment on above: Performed By: #### G STAIN ####[facility] C[address]mukfuu[address] [place], [place] [address]Dr. Farhat Leal FUNGAL ELEMENTS Normal [facility] Comment on above: Performed By: #### G STAIN ####[facility] Hidachpfnz[address] [place], [place] [address]Dr. Farhat Leal GRAM NEG BACILLI Normal [facility] Comment on above: Performed By: #### G STAIN ####[facility] [address] [place] [address]Dr. Farhat Leal GRAM NEG DIPPLOCOCCI Normal [facility] Comment on above: Performed By: #### G STAIN ####[facility] Sfnrhaxing[address] [place] [address]Dr. Farhat Leal GRAM POS BACILLI Normal [facility] Comment on above: Performed By: #### G STAIN ####[facility] Owfpmdfygu4[address] [place] [address]Dr. Farhat Leal GRAM POSITIVE COCCI FEW Normal [facility] Comment on above: Performed By: #### G STAIN ####[facility] Fugeocalvi[address] [place], [place] [address]Dr. Farhat Leal GRAM STAIN SOURCE RT ACHILLES TENDON Normal [facility] Comment on above: Performed By: #### G STAIN ####[facility] Vfqvytbwzf[address] [place], [place] [address]Dr. Farhat Leal GS_DIPTH Normal [facility] Comment on above: Performed By: #### G STAIN ####[facility] Wzuehlmvjx[address] [place], [place] [address]Dr. Farhat Leal WBC RARE Normal [facility] Comment on above: Performed By: #### G STAIN ####[facility] Ftnsxnmnyb[address] [place], [place] [address]Dr. Farhat Leal COMMENTS NO ORGANISMS OBSERVED Normal [facility] Comment on above: Performed By: #### G STAIN ####[facility] Vgjykyxwfq26[address] [place] [address]Dr. Farhat Leal DIPHTHEROIDS Normal [facility] Comment on above: Performed By: #### G STAIN ####[facility] Bzwzwepydu[address] [place], [place] [address]Dr. Farhat Leal EPITHELIALS Normal [facility] Comment on above: Performed By: #### G STAIN ####[facility] Rqnpsymxzs[address] [place], [place] [address]Dr. Farhat Leal FUNGAL ELEMENTS Normal [facility] Comment on above: Performed By: #### G STAIN ####[facility] Smertzilxu[address] [place] [address]Dr. Farhat Leal GRAM NEG BACILLI Normal [facility] Comment on above: Performed By: #### G STAIN ####[facility] Jpcwjugxaq90[address] [place] [address]Dr. Farhat Leal GRAM NEG DIPPLOCOCCI Normal [facility] Comment on above: Performed By: #### G STAIN ####[facility] Afhimkqgra58[address] [place] [address]Dr. Farhat Leal GRAM POS BACILLI Normal [facility] Comment on above: Performed By: #### G STAIN ####[facility] Zoxkgrzdxg[address] [place], [place] [address]Dr. Farhat Leal GRAM POSITIVE COCCI Normal [facility] Comment on above: Performed By: #### G STAIN ####[facility] Osvvfatgyr[address] [place], [place] [address]Dr. Farhat Leal GRAM STAIN SOURCE RT CALCANEOUS Normal [facility] Comment on above: Performed By: #### G STAIN ####[facility] Jwpcmktshq7[address] [place] [address]Dr. Farhat Leal GS_DIPTH Normal [facility] Comment on above: Performed By: #### G STAIN ####[facility] Ldzmocyuib94[address] [place] [address]Dr. Farhat Leal WBC RARE Normal [facility] Comment on above: Performed By: #### G STAIN ####[facility] Ilwjqfgrle8368 [place] [address]Dr. Farhat Leal DIPHTHEROIDS Normal [facility] Comment on above: Performed By: #### G STAIN ####[facility] Ocdlkfvoyh16[address] [place] [address]Dr. Farhat Leal EPITHELIALS Normal [facility] Comment on above: Performed By: #### G STAIN ####[facility] Lzynvneskf8229 [place] [address]Dr. Farhat Leal FUNGAL ELEMENTS Normal [facility] Comment on above: Performed By: #### G STAIN ####[facility] Ffpdwivxqp7[address] [place] [id number]. Farhat Leal GRAM NEG BACILLI FEW Normal [facility] Comment on above: Performed By: #### G STAIN ####[facility] Dwdysvwyvy11[address] [place] [phone]. Farhat Leal GRAM NEG DIPPLOCOCCI Normal [facility] Comment on above: Performed By: #### G STAIN ####[facility] Rhydqjtohb26[address] [place] [address]Dr. Farhat Leal GRAM POS BACILLI Normal [facility] Comment on above: Performed By: #### G STAIN ####[facility] Maczttfsxm4624 [place] [address]Dr. Farhat Leal GRAM POSITIVE COCCI FEW Normal [facility] Comment on above: Performed By: #### G STAIN ####[facility] Sxokwwhclz[address] [place], [place] [address]Dr. Farhat Leal GRAM STAIN SOURCE #2 Rt foot abscess Normal [facility] Comment on above: Performed By: #### G STAIN ####[facility] Bcyolopmii7[address] [place] [address]Dr. Farhat Leal GS_DIPTH Normal [facility] Comment on above: Performed By: #### G STAIN ####[facility] Pfjcjuhjbi[address] [place] [address]Dr. Farhat Leal WBC RARE Normal [facility] Comment on above: Performed By: #### G STAIN ####[facility] Bsvlhzjcbw6[address] [place] [address]Dr. Farhat Leal DIPHTHEROIDS Normal [facility] Comment on above: Performed By: #### G STAIN ####[facility] Cvkljgsijm6138 [place] [address]Dr. Farhat Leal EPITHELIALS Normal [facility] Comment on above: Performed By: #### G STAIN ####[facility] Ebrxcpwihp6765 [place] [address]Dr. Farhat Leal FUNGAL ELEMENTS Normal [facility] Comment on above: Performed By: #### G STAIN ####[facility] Wulybyjdmw5928 [place] [address]Dr. Farhat Leal GRAM NEG BACILLI FEW Normal [facility] Comment on above: Performed By: #### G STAIN ####[facility] Vzpznoafud7772 [place] [address]Dr. Farhat Leal GRAM NEG DIPPLOCOCCI Normal [facility] Comment on above: Performed By: #### G STAIN ####[facility] Xdyhzbdalx7754 [place] [address]Dr. Farhat Leal GRAM POS BACILLI Normal [facility] Comment on above: Performed By: #### G STAIN ####[facility] Eyfokzehbe[address] [place], [place] [address]Dr. Farhat Leal GRAM POSITIVE COCCI FEW Normal [facility] Comment on above: Performed By: #### G STAIN ####[facility] Nmeeljqjrr17[address] [place], [place] [address]Dr. Farhat Leal GRAM STAIN SOURCE #1 Rt foot abscess Normal [facility] Comment on above: Performed By: #### G STAIN ####[facility] Jsmkdnyrgv[address] [place], [place] [address]Dr. Farhat Leal GS_DIPTH Normal [facility] Comment on above: Performed By: #### G STAIN ####[facility] Raoquywmoe[address] [place], [place] [address]Dr. Farhat Leal WBC NONE SEEN Normal [facility] Comment on above: Performed By: #### G STAIN ####[facility] Udznvjtfuv[address] [place], [place] [address]Dr. Farhat Leal POINT OF CARE GLUCOSEon 11-15 0 Glucose [Mass/Vol] 331 mg/dL Critically high 74-106 [facility] Comment on above: Performed By: #### P OCGLUC ####[facility] Ohwaeafefu313[address] [place], [place] [address]Dr. Farhat Leal Glucose [Mass/Vol] 236 mg/dL Critically high 74-106 [facility] Comment on above: Performed By: #### P OCGLUC ####[facility] Absadmeuuu859[address] [place], [place] [address]Dr. Farhat Leal PROF 14(COMP METB)on 022 Albumin [Mass/Vol] 1.6 g/dL Critically low 3.4-5.0 [facility] Comment on above: Performed By: #### B ANIMAL RESCUER, CMP, CRP ####[facility] Mfqnpgywwb[address] [place] [address]Dr. Farhat Leal Albumin/Globulin [Mass ratio] 0.4 {ratio} Normal [facility] Comment on above: Performed By: #### B ANIMAL RESCUER, CMP, CRP ####[facility] Yjptqmsrzt[address] [place] [address]Dr. Farhat Leal ALP [Catalytic activity/Vol] 94 U/L Normal 46-116 [facility] Comment on above: Performed By: #### B ANIMAL RESCUER, CMP, CRP ####[facility] Znvzfriqsf[address] [place] [address]Dr. Farhat Leal ALT [Catalytic activity/Vol] 49 U/L Normal 16-63 [facility] Comment on above: Performed By: #### B ANIMAL RESCUER, CMP, CRP ####[facility] Fhxoxkyeer[address] [place], [place] [address]Dr. Farhat Leal Anion gap [Moles/Vol] 12.5 mmol/L Normal [facility] Comment on above: Performed By: #### B ANIMAL RESCUER, CMP, CRP ####[facility] Wgcvdaqfqk9[address] [place], [place] [address]Dr. Farhat Leal AST [Catalytic activity/Vol] 102 U/L Critically high 15-37 [facility] Comment on above: Performed By: #### B ANIMAL RESCUER, CMP, CRP ####[facility] Fipuhuujtd9884 [place] [address]Dr. Farhat Leal Bilirubin [Mass/Vol] 0.8 mg/dL Normal 0.2-1.0 [facility] Comment on above: Performed By: #### B ANIMAL RESCUER, CMP, CRP ####[facility] [address]pjaqoqrbz[address] [place], [place] [address]Dr. Farhat Leal Calcium [Mass/Vol] 8.4 mg/dL Critically low 8.5-10.1 [facility] Comment on above: Performed By: #### B ANIMAL RESCUER, CMP, CRP ####[facility] Wsrqocexjp8949 [place] [phone]. Farhat Leal Chloride [Moles/Vol] 96 mmol/L Critically low 98-107 [facility] Comment on above: Performed By: #### B ANIMAL RESCUER, CMP, CRP ####[facility] Dhjtchixsc2056 [place] [address]Dr. Farhat Leal CO2 [Moles/Vol] 24.8 mmol/L Normal 21.0-32.0 [facility] Comment on above: Performed By: #### B ANIMAL RESCUER, CMP, CRP ####[facility] Aujvpmimyv9687 [place] [address]Dr. Farhat Leal Creatinine [Mass/Vol] 1.36 mg/dL Critically high 0.70-1.30 [facility] Comment on above: Performed By: #### B ANIMAL RESCUER, CMP, CRP ####[facility] Egfnjzmkga46[address] [place], [place] [address]Dr. Farhat Leal EGFR-AF BOLIVIAN >60 Normal >=60 [facility] Comment on above: Performed By: #### B ANIMAL RESCUER, CMP, CRP ####[facility] Xlgoaihzkl[address] [place], [place] [address]Dr. Farhat Leal EGFR-NON AF BOLIVIAN 51 mL/min/1.73m2 Critically low >=60 [facility] Comment on above: Performed By: #### B ANIMAL RESCUER, CMP, CRP ####[facility] Kreddemfyt6646 [place] [address]Dr. Farhat Leal Globulin (S) [Mass/Vol] 4.1 g/dL Normal [facility] Comment on above: Performed By: #### B ANIMAL RESCUER, CMP, CRP ####[facility] Otapnjtknl8596 [place] [address]Dr. Farhat Leal Glucose [Mass/Vol] 204 mg/dL Critically high 74-106 [facility] Comment on above: Performed By: #### B ANIMAL RESCUER, CMP, CRP ####[facility] Dlgzhuwlno1713 [place] [address]Dr. Farhat Leal Potassium [Moles/Vol] 4.3 mmol/L Normal 3.5-5.1 [facility] Comment on above: Performed By: #### B ANIMAL RESCUER, CMP, CRP ####[facility] Dybnjgfqfr4899 [place] [address]Dr. Farhat Leal Protein [Mass/Vol] 5.7 g/dL Critically low 6.4-8.2 [facility] Comment on above: Performed By: #### B ANIMAL RESCUER, CMP, CRP ####[facility] Qvlogxgjry[address] [place], [place] [address]Dr. Farhat Leal Sodium [Moles/Vol] 129 mmol/L Critically low 136-145 [facility] Comment on above: Performed By: #### B ANIMAL RESCUER, CMP, CRP ####[facility] Batekzkztl[address] [place], [place] [address]Dr. Farhat Leal Urea nitrogen [Mass/Vol] 41.0 mg/dL Critically high 7.0-18.0 [facility] Comment on above: Performed By: #### B ANIMAL RESCUER, CMP, CRP ####[facility] Jxuzmxpogd[address] [place], [place] [address]Dr. Farhat Leal Urea nitrogen/Creatinine [Mass ratio] 30.1 mg/mg Normal [facility] Comment on above: Performed By: #### B ANIMAL RESCUER, CMP, CRP ####[facility] Wmevgwmufm252[address] [place], [place] [address]Dr. Farhat Leal PROTIMEon 11-24-2021 INR Coag (PPP) [Relative time] 2.20 {INR} Normal [facility] Comment on above: Performed By: #### P T ####[facility] Mnwotfxpto64[address] [place], [place] [address]Dr. Farhat Leal INR GUIDELINES SEE BELOW Normal [facility] Comment on above: Result Comment: MALINA RED INR: 2.0 - 3.0 CONDITIONS NOT LISTED BELOW 2.5 - 3.5 FOR PROSTHETIC HEART VALVE REPLACEMENT 2.5 - 3.5 RECURRENT THROMBOSIS Performed By: #### P T ####[facility] Ljhjgtwpdl[address] [place], [place] [address]Dr. Farhat Leal PT Coag (PPP) [Time] 22.6 s Critically high 9.0-11.6 [facility] Comment on above: Performed By: #### P T ####[facility] Lpjkgisxju12[address] [place] [phone]. Farhat Elvis [facility] 80 mm/hr Critically high <=20 [facility] Comment on above: Performed By: #### S EDR ####[facility] Vxxwmeatxy[address] [place], [place] [address]Dr. Farhat Elvis BLOOD CULTURE ID PANELon A. baumannii Not detected Normal NOT DETECTED [facility] Comment on above: Performed By: #### B CID2 ####[facility] Bgiqjqehoh27[address] [place], [place] [address]Dr. Farhat Elvis Bacteriodes fragilis Not detected Normal NOT DETECTED [facility] Comment on above: Performed By: #### B CID2 ####[facility] Gvujoogisj404[address] [place], [place] [address]Dr. Farhat Elvis BCID CONTROLS PASSED Normal [facility] Comment on above: Performed By: #### B CID2 ####[facility] Cwqkqcjvwe[address] [place], [place] [address]Dr. Farhat Leal BCIDBTHD BLOOD CULTURE BOTTLE INFORMATION Normal [facility] Comment on above: Performed By: #### B CID2 ####[facility] Efedlmyyrm4382 [place] [phone]. Farhat Leal BCIDHD1 ANTIMICROBIAL RESISTANCE GENES Normal [facility] Comment on above: Performed By: #### B CID2 ####[facility] Cmpsmemspn[address] [place], [place] [address]Dr. Madelynlorri Leal BCIDHD2 SEE BELOW Normal [facility] Comment on above: Result Comment: Note : Antimicrobial resitance can occur via multiple mechanisms. A Not Detected result for the [employer] antomicrobial resistance gene assays does not indicate antimicrobial susceptibility. Subculturing is required for species identification and susceptibility testing of isolates. Performed By: #### B CID2 ####[facility] Entceexkvc[address] [place], [place] [address]Dr. Farhat Elvis BCIDHD3 Positive Normal [facility] Comment on above: Performed By: #### B CID2 ####[facility] Qrgnosmqqn9840 [place] [address]Dr. Farhat Leal BCIDHD4 Negative Normal [facility] Comment on above: Performed By: #### B CID2 ####[facility] Zsllxcwkua2046 [place] [address]Dr. Farhat Leal BCIDHD5 YEAST Normal [facility] Comment on above: Performed By: #### B CID2 ####[facility] Cofkmskysa7[address] [place], [place] [address]Dr. Farhat Leal Bottle Set: Set 1 Normal [facility] Comment on above: Performed By: #### B CID2 ####[facility] Xibdpdehxs1980[address] [place], [place] [address]Dr. Farhat Leal Bottle: Aerobic Normal [facility] Comment on above: Performed By: #### B CID2 ####[facility] Xdtrzgvrdj[address] [place], [place] [address]Dr. Farhat Leal C. neoformans/gattii Not detected Normal NOT DETECTED [facility] Comment on above: Performed By: #### B CID2 ####[facility] Yecsefzpkt[address] [place], [place] [address]Dr. Farhat [facility] Disha albicans Not detected Normal NOT DETECTED [facility] Comment on above: Performed By: #### B CID2 ####[facility] Zwdtmnogvb06[address] [place], [place] [address]Dr. Farhat Leal Disha auris Not detected Normal NOT DETECTED [facility] Comment on above: Performed By: #### B CID2 ####[facility] Fenpqupcph349[address] [place], [place] [address]Dr. Farhat Leal Disha glabrata Not detected Normal NOT DETECTED [facility] Comment on above: Performed By: #### B CID2 ####[facility] Vbmjdgrdow732[address] [place], [place] [address]Dr. Farhat Leal Disha Krusei Not detected Normal NOT DETECTED [facility] Comment on above: Performed By: #### B CID2 ####[facility] Efgwnsmtpq5545 [place] [address]Dr. Madelynlorri Elvis Disha Parapsilosis Not detected Normal NOT DETECTED [facility] Comment on above: Performed By: #### B CID2 ####[facility] Fjivyuhdsd252[address] [place], [place] [address]Dr. Farhat Elvis Disha Tropicalis Not detected Normal NOT DETECTED [facility] Comment on above: Performed By: #### B CID2 ####[facility] Fojeqbpste888[address] [place], [place] [address]Dr. Farhat Leal CTX-M Resistant Gene Not Applicable Normal NOT DETECTE D [facility] Comment on above: Performed By: #### B CID2 ####[facility] Dqcrtmzrqe709[address] [place], [place] [address]Dr. Farhat Leal E. Cloacae complex Not detected Normal NOT DETECTED [facility] Comment on above: Performed By: #### B CID2 ####[facility] Fetpcmqpjz098[address] [place], [place] [address]Dr. Farhat Leal E. faecalis Not detected Normal NOT DETECTED [facility] Comment on above: Performed By: #### B CID2 ####[facility] Givujxrswz317[address] [place], [place] [address]Dr. Farhat Leal E. faecium Not detected Normal NOT DETECTED [facility] Comment on above: Performed By: #### B CID2 ####[facility] Exqfwbhjzw469[address] [place], [place] [address]Dr. Farhat Leal Enterobacteriaceae Not detected Normal NOT DETECTED [facility] Comment on above: Performed By: #### B CID2 ####[facility] Knmhkzompl[address] [place], [place] [address]Dr. Farhat Leal Escherichia coli Not detected Normal NOT DETECTED [facility] Comment on above: Performed By: #### B CID2 ####[facility] Lfulifpfdf4025[address] [place], [place] [address]Dr. Farhat Leal H. influenzae Not detected Normal NOT DETECTED [facility] Comment on above: Performed By: #### B CID2 ####[facility] Zwwxrjhmtr44[address] [place], [place] [address]Dr. Farhat Leal IMP Resistant Gene Not Applicable Normal NOT DETECTED [facility] Comment on above: Performed By: #### B CID2 ####[facility] Zkaqkwghto2731 [place] [address]Dr. Farhat Leal K. oxytoca Not detected Normal NOT DETECTED [facility] Comment on above: Performed By: #### B CID2 ####[facility] Srwelekxot2946 [place] [address]Dr. Farhat Leal K. pneumoniae Not detected Normal NOT DETECTED [facility] Comment on above: Performed By: #### B CID2 ####[facility] Qurgqhxbyp64[address] [place], [place] [address]Dr. Farhat Leal Klebsiella aerogenes Not detected Normal NOT DETECTED [facility] Comment on above: Performed By: #### B CID2 ####[facility] Evwussuuij30[address] [place], [place] [address]Dr. Farhat Leal KPC Resistant Gene Not Applicable Normal NOT DETECTED [facility] Comment on above: Performed By: #### B CID2 ####[facility] Kuswhxfixh[address] [place], [place] [address]Dr. Farhat Leal List. monocytogenes Not detected Normal NOT DETECTED [facility] Comment on above: Performed By: #### B CID2 ####[facility] Nyojmnxdvu26[address] [place], [place] [address]Dr. Farhat Leal Mcr-1 Resistant Gene Not Applicable Normal NOT DETECTE D [facility] Comment on above: Performed By: #### B CID2 ####[facility] Lwguifzqzj16[address] [place], [place] [address]Dr. Madelynlan Elvis mecA/C Not Applicable Normal NOT DETECTED [facility] Comment on above: Performed By: #### B CID2 ####[facility] Euciqsrrmk107[address] [place], [place] [address]Dr. Farhat Leal mecA/C MREJ Detected Abnormal NOT DETECTED [facility] Comment on above: Performed By: #### B CID2 ####[facility] Hunghwbxpa048[address] [place], [place] [address]Dr. Farhat Leal N. meningitidis Not detected Normal NOT DETECTED [facility] Comment on above: Performed By: #### B CID2 ####[facility] Iudcqtjpns5683 [place] [address]Dr. Farhat Leal NDM Resistant Gene Not Applicable Normal NOT DETECTED [facility] Comment on above: Performed By: #### B CID2 ####[facility] Oquvtsodwd7288 [place] [address]Dr. Farhat Leal Oxa-48-like Not Applicable Normal NOT DETECTED [facility] Comment on above: Performed By: #### B CID2 ####[facility] Iuktbsoaxk740[address] [place], [place] [address]Dr. Farhat Leal Proteus Not detected Normal NOT DETECTED [facility] Comment on above: Performed By: #### B CID2 ####[facility] Ycorzziosc006[address] [place], [place] [address]Dr. Farhat Leal Pseud. aeruginosa Not detected Normal NOT DETECTED [facility] Comment on above: Performed By: #### B CID2 ####[facility] Gtdbxdcsyt8[address] [place], [place] [address]Dr. Farhat Leal S. maltophilia Not detected Normal NOT DETECTED [facility] Comment on above: Performed By: #### B CID2 ####[facility] Idsoonqtrp999[address] [place], [place] [address]Dr. Farhat Leal Salmonella Not detected Normal NOT DETECTED [facility] Comment on above: Performed By: #### B CID2 ####[facility] Ljbupdlwbs908[address] [place], [place] [address]Dr. Farhat Leal Seratia marcescens Not detected Normal NOT DETECTED [facility] Comment on above: Performed By: #### B CID2 ####[facility] Inexaprcnn304[address] [place], [place] [address]Dr. Farhat Leal Site: Rt Hand Normal [facility] Comment on above: Performed By: #### B CID2 ####[facility] Pjulmomqtb313[address] [place], [place] [address]Dr. Farhat Leal Staph. aureus Detected Abnormal NOT DETECTED [facility] Comment on above: Performed By: #### B CID2 ####[facility] [address]pgnmnuh[address] [place], [place] [address]Dr. Farhat Leal Staph. epidermidis Not detected Normal NOT DETECTED [facility] Comment on above: Performed By: #### B CID2 ####[facility] Jdmkpexuxd80[address] [place], [place] [address]Dr. Farhat Leal Staph. lugdunensis Not detected Normal NOT DETECTED [facility] Comment on above: Performed By: #### B CID2 ####[facility] Rnxhixuphf39[address] [place], [place] [address]Dr. Farhat Leal Staphylococcus Detected Abnormal NOT DETECTED [facility] Comment on above: Performed By: #### B CID2 ####[facility] Vnsorkitkl[address] [place], [place] [address]Dr. Farhat Leal Strep. agalactiae Not detected Normal NOT DETECTED [facility] Comment on above: Performed By: #### B CID2 ####[facility] Spgxsekdcd7[address] [place], [place] [address]Dr. Farhat Leal Strep. pneumoniae Not detected Normal NOT DETECTED [facility] Comment on above: Performed By: #### B CID2 ####[facility] Iipespithu92[address] [place], [place] [address]Dr. Farhat Elvis Strep. pyogenes Not detected Normal NOT DETECTED [facility] Comment on above: Performed By: #### B CID2 ####[facility] Vciapxasct58[address] [place], [place] [address]Dr. Farhat Leal Streptococcus Not detected Normal NOT DETECTED [facility] Comment on above: Performed By: #### B CID2 ####[facility] Rlhjubwvtz64[address] [place], [place] [address]Dr. Farhat Leal Teodoro/B Resist. Gene Not Applicable Normal NOT DETECTED [facility] Comment on above: Performed By: #### B CID2 ####[facility] Afefdnwnur9[address] [place], [place] [address]Dr. Farhat Leal VIM Resistant Gene Not Applicable Normal NOT DETECTED [facility] Comment on above: Performed By: #### B CID2 ####[facility] [address] [place] [address]Dr. Farhat Leal BNPon 11-23-2021 Natriuretic peptide B (Bld) [Mass/Vol] 84119.0 pg/mL Critically high <=1,800.0 [facility] Comment on above: Performed By: #### C MP, CMADM, BNP ####[facility] [address] [place] [address]Dr. Farhat Leal CARDIAC AMANDA ADMITon 022 CK [Catalytic activity/Vol] 41 U/L Normal 39-308 [facility] Comment on above: Performed By: #### C MP, CMADM, BNP ####[facility] Ikxkpcyzgt03[address] [place], [place] [address]Dr. Farhat Leal CK.MB [Mass/Vol] 0.98 ng/mL Normal <=3.60 [facility] Comment on above: Performed By: #### C MP, CMADM, BNP ####[facility] Xkgmfqfaop54[address] [place], [place] [address]Dr. Farhat Leal HSTROP 30.1 pg/mL Normal 4.0-76.1 [facility] Comment on above: Result Comment: CUT- OFF POINTS HAVE BEEN ESTABLISHED BASED ON THE FOURTH UNIVERSAL DEFINITIONS OF MYOCARDIALINFARCTION. THE UPPER REFERENCE LIMIT (URL) OF TROPONIN, DEFINED THE 99TH PERCENTILE OFcTnI DISTRIBUTION IN A REFERENCE POPULATION, HAS BEEN CONFIRMED THE DECISION THRESHOLDFOR [place] DIAGNOSIS. Performed By: #### C MP, CMADM, BNP ####[facility] Ykuhprglzk[address] [place], [place] [address]Dr. Farhat Leal VALERIA 160 ng/mL Critically high 16-96 [facility] Comment on above: Performed By: #### C MP, CMADM, BNP ####[facility] [address]oxy[address] [place] [address]Dr. Farhat Leal CBC AUTO DIFFon 11-23-2021 BASO # 0.0 103/ul Normal 0.0-0.1 [facility] Comment on above: Performed By: #### C BC ####[facility] Xcrsenaozz435[address] [place], [place] [address]Dr. Farhat Leal Basophils/100 WBC (Bld) 0.2 % Normal 0.2-2.0 [facility] Comment on above: Performed By: #### C BC ####[facility] Ysgpdlwwmg65[address] [place], [place] [address]Dr. Farhat Leal EO # 0.0 103/ul Normal 0.0-0.7 [facility] Comment on above: Performed By: #### C BC ####[facility] Ebhcajsoju9213[address] [place], [place] [address]Dr. Farhat Leal Eosinophils/100 WBC (Bld) 0.1 % Critically low 0.9-7.0 [facility] Comment on above: Performed By: #### C BC ####[facility] Zxrctprdtj0964[address] [place], [place] [address]Dr. Farhat Leal Erythrocyte distribution width (RBC) [Ratio] 13.4 % Normal 11.0-15.0 [facility] Comment on above: Performed By: #### C BC ####[facility] Fizsvvgvde05[address] [place], [place] [address]Dr. Farhat Leal Hematocrit (Bld) [Volume fraction] 31.6 % Critically low 42.0-54.0 [facility] Comment on above: Performed By: #### C BC ####[facility] Lacxnonjmc59[address] [place], [place] [address]Dr. Farhat Leal Hemoglobin (Bld) [Mass/Vol] 10.4 g/dL Critically low 14.0-18.0 [facility] Comment on above: Performed By: #### C BC ####[facility] Jlfohzpvsw[address] [place], [place] [address]Dr. Farhat Leal IG # 0.11 10e3/ul Critically high 0.00-0.03 [facility] Comment on above: Performed By: #### C BC ####[facility] Uowmuuafpq5067[address] [place], [place] [address]Dr. Farhat Leal IG % 0.7 % Critically high 0.0-0.5 [facility] Comment on above: Performed By: #### C BC ####[facility] Bgqjqsfuhh34[address] [place], [place] [address]Dr. Farhat Leal LYMPH # 0.5 103/ul Critically low 1.2-3.[address] [facility] Comment on above: Performed By: #### C BC ####[facility] Qkw[address]jmz[address] [place] [address]Dr. Farhat Elvis Lymphocytes/100 WBC (Bld) 2.8 % Critically low 20.5-60.0 [facility] Comment on above: Performed By: #### C BC ####[facility] [address] [place] [address]Dr. Farhat Leal MANUAL DIFF REQ NO Normal [facility] Comment on above: Performed By: #### C BC ####[facility] [address]mqul[address] [place] [address]Dr. Farhat Elvis MCH (RBC) [Entitic mass] 29.8 pg Normal 25.9-34.0 [facility] Comment on above: Performed By: #### C BC ####[facility] Fybpt[address]koe[address] [place] [address]Dr. Madelynlorri Leal MCHC (RBC) [Mass/Vol] 32.9 g/dL Normal 29.9-35.2 [facility] Comment on above: Performed By: #### C BC ####[facility] Xfwcplbloo64[address] [place] [address]Dr. Farhat Leal MCV (RBC) [Entitic vol] 90.5 fL Normal 80.0-94.0 [facility] Comment on above: Performed By: #### C BC ####[facility] Vlvnljacmg39[address] [place] [address]Dr. Farhat Leal MONO # 1.3 103/ul Critically high 0.3-0.8 [facility] Comment on above: Performed By: #### C BC ####[facility] Ezcyjltwql7[address] [place] [address]Dr. Farhat Leal Monocytes/100 WBC (Bld) 8.3 % Normal 1.7-12.0 [facility] Comment on above: Performed By: #### C BC ####[facility] [address]epse[address] [place] [id number]. Farhat Leal NEUT # 13.9 103/ul Critically high 1.4-6.5 [facility] Comment on above: Performed By: #### C BC ####[facility] Fmp[address]xzmwm35[address] [place] [id number]. Farhat Lela Neutrophils/100 WBC (Bld) 87.9 % Critically high 43.0-75.0 [facility] Comment on above: Performed By: #### C BC ####[facility] [address]wmknzrd[address] [place] [address]Dr. Farhat Leal Platelet mean volume (Bld) [Entitic vol] 9.3 fL Critically low 9.5-13.5 [facility] Comment on above: Performed By: #### C BC ####[facility] Rezytvynqa[address] [place] [address]Dr. Farhat Leal PLT 390 103/ul Normal 150-450 [facility] Comment on above: Performed By: #### C BC ####[facility] Idwlisiieo[address] [place], [place] [address]Dr. Farhat Leal RBC 3.49 106/ul Critically low 4.70-6.10 [facility] Comment on above: Performed By: #### C BC ####[facility] Xqzoqvbtmu59[address] [place] [address]Dr. Farhat Leal WBC 15.9 103/ul Critically high 4.0-11.0 [facility] Comment on above: Performed By: #### C BC ####[facility] [address]avfebc[address] [place] [address]Dr. Farhat Leal CT HEAD WO CONon 11-23-2021 CT HEAD WO CON Normal [facility] CULTURE BLOODon 11-23-2021 Microscopic examination of blood, culture Culture Observations: NO GROWTH AT 5 DAYS. Normal The [facility] Comment on above: Performed By: #### B LDCX2 ####[facility] [address]bpfa[address] [place] [address]Dr. Farhat Leal Covid-19 PCR (CVDTB)on SARS-CoV-2 (COVID-19) RNA JOSH+probe Ql (Unsp spec) Not detected Normal NOT DETECTED [facility] Comment on above: Result Comment: When [...] for this test is supported by the [place] of [employer] and Human Service's declaration that [...] be used). Performed By: #### C VDTBH ####[facility] Pokjxjldey[address] [place], [place] [address]Dr. Farhat Leal LACTATE/LACTIC ACIDon 2021 Lactate [Moles/Vol] 1.3 mmol/L Normal 0.4-1.9 [facility] Comment on above: Performed By: #### L ACT ####[facility] Fozgjppqyx[address] [place], [place] [address]Dr. Farhat Leal Lactate [Moles/Vol] 1.3 mmol/L Normal 0.4-1.9 [facility] Comment on above: Performed By: #### L ACT ####[facility] Rkllnltrlb7836[address] [place], [place] [address]Dr. Farhat Leal POINT OF CARE GLUCOSEon Glucose [Mass/Vol] 252 mg/dL Critically high 74-106 [facility] Comment on above: Performed By: #### P OCGLUC ####[facility] Coirbxocgr[address] [place] [address]Dr. Farhat Leal PROF 14(COMP METB)on 022 Albumin [Mass/Vol] 1.6 g/dL Critically low 3.4-5.0 Th e [facility] Comment on above: Performed By: #### C MP, CMADM, BNP ####[facility] Luwppsmnhk[address] [place] [address]Dr. Madelynlorri Elvis Albumin/Globulin [Mass ratio] 0.4 {ratio} Normal [facility] Comment on above: Performed By: #### C MP, CMADM, BNP ####[facility] Cvvyunisoa[address] [place], [place] [address]Dr. Farhat Elvis ALP [Catalytic activity/Vol] 98 U/L Normal 46-116 [facility] Comment on above: Performed By: #### C MP, CMADM, BNP ####[facility] Elbtifaaue89[address] [place], [place] [address]Dr. Farhat Leal ALT [Catalytic activity/Vol] 52 U/L Normal 16-63 [facility] Comment on above: Performed By: #### C MP, CMADM, BNP ####[facility] Bhxhbrunsx33[address] [place], [place] [address]Dr. Farhat eLal Anion gap [Moles/Vol] 9.8 mmol/L Normal [facility] Comment on above: Performed By: #### C MP, CMADM, BNP ####[facility] Sieiiywtzl[address] [place], [place] [address]Dr. Farhat Leal AST [Catalytic activity/Vol] 122 U/L Critically high 15-37 [facility] Comment on above: Performed By: #### C MP, CMADM, BNP ####[facility] Kjykfjdjye[address] [place], [place] [address]Dr. Farhat Leal Bilirubin [Mass/Vol] 0.7 mg/dL Normal 0.2-1.0 [facility] Comment on above: Performed By: #### C MP, CMADM, BNP ####[facility] Apyrewnriu[address] [place], [place] [address]Dr. Farhat Leal Calcium [Mass/Vol] 8.6 mg/dL Normal 8.5-10.1 [facility] Comment on above: Performed By: #### C MP, CMADM, BNP ####[facility] [address]khrs[address] [place] [address]Dr. Farhat Leal Chloride [Moles/Vol] 95 mmol/L Critically low 98-107 [facility] Comment on above: Performed By: #### C MP, CMADM, BNP ####[facility] Crkettyhgf56[address] [place] [address]Dr. Farhat Leal CO2 [Moles/Vol] 29.6 mmol/L Normal 21.0-32.0 [facility] Comment on above: Performed By: #### C MP, CMADM, BNP ####[facility] Jxitqguawq[address] [place] [address]Dr. Farhat Leal Creatinine [Mass/Vol] 1.49 mg/dL Critically high 0.70-1.30 [facility] Comment on above: Performed By: #### C MP, CMADM, BNP ####[facility] Kkdvggfgob[address] [place], [place] [address]Dr. Farhat Elvis EGFR-AF BOLIVIAN 55 mL/min/1.73m2 Critically low >=60 [facility] Comment on above: Performed By: #### C MP, CMADM, BNP ####[facility] Ajfnbpydkv95[address] [place] [address]Dr. Farhat Leal EGFR-NON AF BOLIVIAN 46 mL/min/1.73m2 Critically low >=60 [facility] Comment on above: Performed By: #### C MP, CMADM, BNP ####[facility] Vovaphmbwi50[address] [place] [address]Dr. Farhat Leal Globulin (S) [Mass/Vol] 4.3 g/dL Normal [facility] Comment on above: Performed By: #### C MP, CMADM, BNP ####[facility] Khxamtlzdt[address] [place] [address]Dr. Farhat Leal Glucose [Mass/Vol] 213 mg/dL Critically high 74-106 [facility] Comment on above: Performed By: #### C MP, CMADM, BNP ####[facility] Wwjtddmldv17[address] [place] [address]Dr. Farhat Leal Potassium [Moles/Vol] 4.4 mmol/L Normal 3.5-5.1 [facility] Comment on above: Performed By: #### C FATMATA MARROQUINDM, BNP ####[facility] O[address]jaknbto[address] [place] [address]Dr. Farhat Leal Protein [Mass/Vol] 5.9 g/dL Critically low 6.4-8.2 [facility] Comment on above: Performed By: #### C CARA CMADM, BNP ####[facility] Xtcagatrfe[address] [place], [place] [address]Dr. Farhat Leal Sodium [Moles/Vol] 130 mmol/L Critically low 136-145 [facility] Comment on above: Performed By: #### C FATMATA MARROQUINDM, BNP ####[facility] Pemrjervoa[address] [place], [place] [address]Dr. Farhat Leal Urea nitrogen [Mass/Vol] 46.0 mg/dL Critically high 7.0-18.0 [facility] Comment on above: Performed By: #### C ANTWAN MARROQUIN, BNP ####[facility] Lqeulmsbzp[address] [place], [place] [address]Dr. Farhat Leal Urea nitrogen/Creatinine [Mass ratio] 30.9 mg/mg Normal [facility] Comment on above: Performed By: #### C ANTWAN MARROQUIN, BNP ####[facility] Rtjgnwlydg[address] [place], [place] [address]Dr. Farhat Leal PROTIMEon 11-23-2021 INR Coag (PPP) [Relative time] 2.55 {INR} Normal [facility] Comment on above: Performed By: #### P TT, PT ####[facility] Xlndpbxdak[address] [place], [place] [address]Dr. Farhat Leal INR GUIDELINES SEE BELOW Normal [facility] Comment on above: Result Comment: MALINA RED INR: 2.0 - 3.0 CONDITIONS NOT LISTED BELOW 2.5 - 3.5 FOR PROSTHETIC HEART VALVE REPLACEMENT 2.5 - 3.5 RECURRENT THROMBOSIS Performed By: #### P TT, PT ####[facility] Uwwzycxlfs[address] [place], [place] [address]Dr. Farhat Leal PT Coag (PPP) [Time] 25.9 s Critically high 9.0-11.6 [facility] Comment on above: Performed By: #### P TT, PT ####[facility] [address]odj[address] [place] [id number]. Farhat Leal PTTon 11-23-2021 aPTT Coag (Bld) [Time] 39.9 s Critically high 22.3-36. 2 [facility] Comment on above: Performed By: #### P TT, PT ####[facility] Bdjdvswhqx40[address] [place], [place] [address]Dr. Farhat Leal XR CHEST 1 Von 11-23-2021 XR CHEST 1 V Normal [facility] XR HEEL RT 2Von 11-23-2021 XR HEEL RT 2V Normal [facility] XR FOOT RT MIN 3 VIEWSon XR FOOT RT MIN 3 VIEWS Normal [facility] US ARTERY LEG RTon US ARTERY LEG RT Normal [facility] CBC AUTO DIFFon 09-24-2021 BASO # 0.1 103/ul Normal 0.0-0.1 [facility] Comment on above: Performed By: #### C BC ####[facility] Qrtyykircx237[address] [place], [place] [address]Dr. Farhat Elvis Basophils/100 WBC (Bld) 0.7 % Normal 0.2-2.0 [facility] Comment on above: Performed By: #### C BC ####[facility] Warlziiumr710[address] [place], [place] [address]Dr. Farhat Elvis EO # 0.3 103/ul Normal 0.0-0.7 [facility] Comment on above: Performed By: #### C BC ####[facility] Kusbyybfka758[address] [place], [place] [address]Dr. Farhat Elvis Eosinophils/100 WBC (Bld) 3.9 % Normal 0.9-7.0 [facility] Comment on above: Performed By: #### C BC ####[facility] Zdqicvyvdx276[address] [place], [place] [address]Dr. Farhat Elvis Erythrocyte distribution width (RBC) [Ratio] 12.6 % Normal 11.0-15.0 [facility] Comment on above: Performed By: #### C BC ####[facility] Bjskqfcize64[address] [place] [address]DrSkylar Leal Hematocrit (Bld) [Volume fraction] 38.9 % Critically low 42.0-54.0 [facility] Comment on above: Performed By: #### C BC ####[facility] Hnfntxzncu66[address] [place], [place] [address]DrSkylar Leal Hemoglobin (Bld) [Mass/Vol] 12.8 g/dL Critically low 14.0-18.0 [facility] Comment on above: Performed By: #### C BC ####[facility] Axldwjdrbm69[address] [place], [place] [address]DrSkylar Leal IG # 0.10 10e3/ul Critically high 0.00-0.03 [facility] Comment on above: Performed By: #### C BC ####[facility] Usavntmbun39[address] [place], [place] [address]DrSkylar Leal IG % 1.2 % Critically high 0.0-0.5 [facility] Comment on above: Performed By: #### C BC ####[facility] Pkgihjlhcl[address] [place], [place] [address]DrSkylar Leal LYMPH # 2.1 103/ul Normal 1.2-3.8 [facility] Comment on above: Performed By: #### C BC ####[facility] Oazdlksvxo77[address] [place], [place] [address]DrSkylar Leal Lymphocytes/100 WBC (Bld) 25.9 % Normal 20.5-60.0 [facility] Comment on above: Performed By: #### C BC ####[facility] Kjerraicka[address] [place], [place] [address]DrSkylar Leal MANUAL DIFF REQ NO Normal [facility] Comment on above: Performed By: #### C BC ####[facility] Hlzjkwbsnw[address] [place], [place] [address]DrSkylar Leal MCH (RBC) [Entitic mass] 31.1 pg Normal 25.9-34.0 [facility] Comment on above: Performed By: #### C BC ####[facility] E[address]qmovruw15[address] [place] [address]DrSkylar Leal MCHC (RBC) [Mass/Vol] 32.9 g/dL Normal 29.9-35.2 [facility] Comment on above: Performed By: #### C BC ####[facility] Zgfwkcalfc4921 [place] [address]DrSkylar Leal MCV (RBC) [Entitic vol] 94.6 fL Critically high 80.0-94.0 [facility] Comment on above: Performed By: #### C BC ####[facility] Lwvarloagg[address] [place], [place] [address]DrSkylar Leal MONO # 1.2 103/ul Critically high 0.3-0.8 [facility] Comment on above: Performed By: #### C BC ####[facility] Nsqudzdbtj312[address] [place], [place] [address]DrSkylar Leal Monocytes/100 WBC (Bld) 14.1 % Critically high 1.7-12.0 [facility] Comment on above: Performed By: #### C BC ####[facility] Uahmfptnql[address] [place], [place] [address]DrSkylar Leal NEUT # 4.4 103/ul Normal 1.4-6.5 [facility] Comment on above: Performed By: #### C BC ####[facility] Rziskhmvxw238[address] [place], [place] [address]DrSkylar Leal Neutrophils/100 WBC (Bld) 54.2 % Normal 43.0-75.0 [facility] Comment on above: Performed By: #### C BC ####[facility] Bsbxqwjtme386[address] [place], [place] [address]DrSkylar Leal Platelet mean volume (Bld) [Entitic vol] 9.9 fL Normal 9.5-13.5 [facility] Comment on above: Performed By: #### C BC ####[facility] Fxabdlpksf213[address] [place], [place] [address]Dr. Farhat Leal PLT 224 103/ul Normal 150-450 [facility] Comment on above: Performed By: #### C BC ####[facility] Pnjrxfwasi[address] [place] [address]Dr. Farhat Leal RBC 4.11 106/ul Critically low 4.70-6.10 [facility] Comment on above: Performed By: #### C BC ####[facility] Jncyqakggl29[address] [place] [address]Dr. Farhat Leal WBC 8.2 103/ul Normal 4.0-11.0 [facility] Comment on above: Performed By: #### C BC ####[facility] Jrwpkqokfx836[address] [place], [place] [address]DrSkylar Leal PROF CHEM 8 (BAS METB)on Anion gap [Moles/Vol] 9.6 mmol/L Normal [facility] Comment on above: Performed By: #### B MP ####[facility] Onosdzjoyh65[address] [place], [place] [address]Dr. Farhat Leal Calcium [Mass/Vol] 8.6 mg/dL Normal 8.5-10.1 [facility] Comment on above: Performed By: #### B MP ####[facility] Aihpytfscq127[address] [place], [place] [address]Dr. Farhat Leal Chloride [Moles/Vol] 94 mmol/L Critically low 98-107 [facility] Comment on above: Performed By: #### B MP ####[facility] Tfsqxvsbve375[address] [place], [place] [address]DrSkylar Leal CO2 [Moles/Vol] 28.1 mmol/L Normal 21.0-32.0 [facility] Comment on above: Performed By: #### B MP ####[facility] Hvzzbpudql7[address] [place], [place] [address]Dr. Farhat Leal Creatinine [Mass/Vol] 1.91 mg/dL Critically high 0.70-1.30 [facility] Comment on above: Performed By: #### B MP ####[facility] Orbcjfwcln[address] [place], [place] [address]Dr. Madelynlorri Leal EGFR-AF BOLIVIAN 42 mL/min/1.73m2 Critically low >=60 [facility] Comment on above: Performed By: #### B MP ####[facility] Aqynfavmia96[address] [place] [address]Dr. Farhat Leal EGFR-NON AF BOLIVIAN 34 mL/min/1.73m2 Critically low >=60 [facility] Comment on above: Performed By: #### B MP ####[facility] Qpebdvurhx25[address] [place], [place] [address]Dr. Madelynlorri Elvis Glucose [Mass/Vol] 314 mg/dL Critically high 74-106 [facility] Comment on above: Performed By: #### B MP ####[facility] Ptgzmkoutx367[address] [place], [place] [address]Dr. Farhat Leal Potassium [Moles/Vol] 4.7 mmol/L Normal 3.5-5.1 [facility] Comment on above: Performed By: #### B MP ####[facility] Musndgbmlm2934[address] [place], [place] [address]Dr. Farhat Leal Sodium [Moles/Vol] 127 mmol/L Critically low 136-145 [facility] Comment on above: Performed By: #### B MP ####[facility] Ekdadbnsrr549[address] [place], [place] [address]Dr. Madelynlorri Elvis Urea nitrogen [Mass/Vol] 79.0 mg/dL Critically high 7.0-18.0 [facility] Comment on above: Result Comment: repe ated Performed By: #### B MP ####[facility] Ytuppopsve[address] [place], [place] [address]Dr. Farhat Leal Urea nitrogen/Creatinine [Mass ratio] 41.4 mg/mg Normal [facility] Comment on above: Performed By: #### B MP ####[facility] Gsjpbfhdke[address] [place], [place] [address]Dr. Farhat Leal PTT HEPARIN MONITORon 2021 aPTT Coag (Bld) [Time] 42.7 s Normal 39.5-54.2 [facility] Comment on above: Performed By: #### P TTHEP ####[facility] [address]reupoorjn[address] [place] [id number]. Farhat Leal aPTT Coag (Bld) [Time] 56.7 s Critically high 39.5-54. 2 [facility] Comment on above: Performed By: #### P TTHEP ####[facility] Gpfekgmect[address] [place] [address]Dr. Farhat Elvis CBC AUTO DIFFon 09-23-2021 BASO # 0.1 103/ul Normal 0.0-0.1 [facility] Comment on above: Performed By: #### C BC ####[facility] Qzwsebthbo[address] [place], [place] [address]Dr. Farhat Leal Basophils/100 WBC (Bld) 0.6 % Normal 0.2-2.0 [facility] Comment on above: Performed By: #### C BC ####[facility] Xeusncerif39[address] [place], [place] [address]Dr. Farhat Leal EO # 0.2 103/ul Normal 0.0-0.7 [facility] Comment on above: Performed By: #### C BC ####[facility] Cfcbejxczd[address] [place], [place] [address]Dr. Madelynlorri Leal Eosinophils/100 WBC (Bld) 2.6 % Normal 0.9-7.0 [facility] Comment on above: Performed By: #### C BC ####[facility] [address]vmqbvvwcy[address] [place], [place] [address]Dr. Farhat Leal Erythrocyte distribution width (RBC) [Ratio] 12.4 % Normal 11.0-15.0 [facility] Comment on above: Performed By: #### C BC ####[facility] Mjnrfbimao[address] [place], [place] [address]Dr. Farhat Leal Hematocrit (Bld) [Volume fraction] 38.4 % Critically low 42.0-54.0 [facility] Comment on above: Performed By: #### C BC ####[facility] Pnahwzpocv[address] [place], [place] [address]Dr. Farhat Leal Hemoglobin (Bld) [Mass/Vol] 12.8 g/dL Critically low 14.0-18.0 [facility] Comment on above: Performed By: #### C BC ####[facility] [address] [place] [address]Dr. Farhat Leal IG # 0.06 10e3/ul Critically high 0.00-0.03 [facility] Comment on above: Performed By: #### C BC ####[facility] F[address]pbehrwl14[address] [place] [address]Dr. Farhat Leal IG % 0.8 % Critically high 0.0-0.5 [facility] Comment on above: Performed By: #### C BC ####[facility] Ielukejtrk95[address] [place] [address]Dr. Farhat Leal LYMPH # 1.5 103/ul Normal 1.2-3.8 [facility] Comment on above: Performed By: #### C BC ####[facility] Ynfqsbnzpb1108 [place] [address]Dr. Farhat Leal Lymphocytes/100 WBC (Bld) 19.7 % Critically low 20.5-60.0 [facility] Comment on above: Performed By: #### C BC ####[facility] [address]iasyqhru[address] [place] [address]Dr. Farhat Leal MANUAL DIFF REQ NO Normal [facility] Comment on above: Performed By: #### C BC ####[facility] Qyveaxekgo7574 [place] [address]DrSkylar Leal MCH (RBC) [Entitic mass] 31.6 pg Normal 25.9-34.0 [facility] Comment on above: Performed By: #### C BC ####[facility] Marqetocdj1703 [place] [address]DrSkylar Leal MCHC (RBC) [Mass/Vol] 33.3 g/dL Normal 29.9-35.2 [facility] Comment on above: Performed By: #### C BC ####[facility] Erssqqdgow0528 [place] [address]DrSkylar Leal MCV (RBC) [Entitic vol] 94.8 fL Critically high 80.0-94.0 [facility] Comment on above: Performed By: #### C BC ####[facility] Hhntavxjvb8930 [place] [address]DrSkylar Joshilorri Elvis MONO # 1.0 103/ul Critically high 0.3-0.8 [facility] Comment on above: Performed By: #### C BC ####[facility] Gwshhkdxie1439 [place] [address]DrSkylar Leal Monocytes/100 WBC (Bld) 13.0 % Critically high 1.7-12.0 [facility] Comment on above: Performed By: #### C BC ####[facility] Vmocsgubls[address] [place], [place] [address]DrSkylar Joshilorri Elvis NEUT # 4.9 103/ul Normal 1.4-6.5 [facility] Comment on above: Performed By: #### C BC ####[facility] Wvfbnifygg140[address] [place], [place] [address]DrSkylar Leal Neutrophils/100 WBC (Bld) 63.3 % Normal 43.0-75.0 [facility] Comment on above: Performed By: #### C BC ####[facility] Okbivhvtss98[address] [place], [place] [address]DrSkylar Leal Platelet mean volume (Bld) [Entitic vol] 10.7 fL Normal 9.5-13.5 [facility] Comment on above: Performed By: #### C BC ####[facility] Joukhznzvw450[address] [place] [address]Dr. Farhat Leal PLT 205 103/ul Normal 150-450 [facility] Comment on above: Performed By: #### C BC ####[facility] Txozujvfiz5913 [place] [id number] Leal RBC 4.05 106/ul Critically low 4.70-6.10 [facility] Comment on above: Performed By: #### C BC ####[facility] Lnqfweajnk3098 [place] [phone] Leal WBC 7.7 103/ul Normal 4.0-11.0 [facility] Comment on above: Performed By: #### C BC ####[facility] Xggqiyjmds7382 [place] [address]Dr. Farhat Leal PROF CHEM 8 (BAS METB)on Anion gap [Moles/Vol] 15.5 mmol/L Normal [facility] Comment on above: Performed By: #### B MP ####[facility] Cwpymzrpfr77[address] [place], [place] [address]Dr. Farhat Leal Calcium [Mass/Vol] 9.1 mg/dL Normal 8.5-10.1 [facility] Comment on above: Performed By: #### B MP ####[facility] Debvkhugnz[address] [place], [place] [address]Dr. Farhat Leal Chloride [Moles/Vol] 92 mmol/L Critically low 98-107 [facility] Comment on above: Performed By: #### B MP ####[facility] Kpvszrzvst60[address] [place], [place] [address]Dr. Farhat Leal CO2 [Moles/Vol] 28.5 mmol/L Normal 21.0-32.0 [facility] Comment on above: Performed By: #### B MP ####[facility] Pjivrpebwb[address] [place], [place] [address]DrSkylar Leal Creatinine [Mass/Vol] 1.84 mg/dL Critically high 0.70-1.30 [facility] Comment on above: Performed By: #### B MP ####[facility] Mrlsfkvjgd0313[address] [place], [place] [address]DrSkylar Leal EGFR-AF BOLIVIAN 44 mL/min/1.73m2 Critically low >=60 [facility] Comment on above: Performed By: #### B MP ####[facility] Geyldvstqz3438[address] [place], [place] [address]Dr. Farhat Leal EGFR-NON AF BOLIVIAN 36 mL/min/1.73m2 Critically low >=60 [facility] Comment on above: Performed By: #### B MP ####[facility] Oxxgitsdtd736[address] [place], [place] [address]DrSkylar Leal Glucose [Mass/Vol] 267 mg/dL Critically high 74-106 [facility] Comment on above: Performed By: #### B MP ####[facility] Vhoupdtsvm7736[address] [place], [place] [address]Dr. Farhat Leal Potassium [Moles/Vol] 5.0 mmol/L Normal 3.5-5.1 [facility] Comment on above: Performed By: #### B MP ####[facility] Tbiygrcrqb7822[address] [place], [place] [address]Dr. Madelynlorri Elvis Sodium [Moles/Vol] 131 mmol/L Critically low 136-145 [facility] Comment on above: Performed By: #### B MP ####[facility] Uirowyjomm189[address] [place], [place] [address]Dr. Farhat Elvis Urea nitrogen [Mass/Vol] 76.0 mg/dL Critically high 7.0-18.0 [facility] Comment on above: Performed By: #### B MP ####[facility] Fxtpfsyins9[address] [place], [place] [address]Dr. Madelynlorri Elvis Urea nitrogen/Creatinine [Mass ratio] 41.3 mg/mg Normal [facility] Comment on above: Performed By: #### B MP ####[facility] Chobhkyhvs9[address] [place], [place] [address]Dr. Farhat Elvis PTT HEPARIN MONITORon 2021 aPTT Coag (Bld) [Time] 57.2 s Critically high 39.5-54. 2 [facility] Comment on above: Performed By: #### P TTHEP ####[facility] Epvwnchida1426[address] [place], [place] [address]Dr. Madelynlorri Elvis aPTT Coag (Bld) [Time] 74.7 s Critically high 39.5-54. 2 [facility] Comment on above: Result Comment: repe ated Performed By: #### P TTHEP ####[facility] Cbtonbnpxq[address] [place], [place] [address]Dr. Farhat Leal aPTT Coag (Bld) [Time] 45.5 s Normal 39.5-54.2 [facility] Comment on above: Performed By: #### P TTHEP ####[facility] Ylsunzjoym[address] [place] [address]Dr. Farhat Elvis CBC AUTO DIFFon 09-22-2021 BASO # 0.1 103/ul Normal 0.0-0.1 [facility] Comment on above: Performed By: #### C BC ####[facility] Wkecbsazpc5814[address] [place], [place] [address]Dr. Farhat Leal Basophils/100 WBC (Bld) 0.7 % Normal 0.2-2.0 [facility] Comment on above: Performed By: #### C BC ####[facility] Bbbqjlxhod308[address] [place], [place] [address]Dr. Farhat Leal EO # 0.3 103/ul Normal 0.0-0.7 [facility] Comment on above: Performed By: #### C BC ####[facility] Zevxywgsvx998[address] [place], [place] [address]Dr. Farhat Leal Eosinophils/100 WBC (Bld) 3.2 % Normal 0.9-7.0 [facility] Comment on above: Performed By: #### C BC ####[facility] Cbjrpctwrm[address] [place], [place] [address]Dr. Farhat Leal Erythrocyte distribution width (RBC) [Ratio] 12.5 % Normal 11.0-15.0 [facility] Comment on above: Performed By: #### C BC ####[facility] Yxxpkyeubp89[address] [place], [place] [address]Dr. Farhat Leal Hematocrit (Bld) [Volume fraction] 40.5 % Critically low 42.0-54.0 [facility] Comment on above: Performed By: #### C BC ####[facility] Jjpqjanttv5022[address] [place], [place] [address]Dr. Farhat Leal Hemoglobin (Bld) [Mass/Vol] 13.4 g/dL Critically low 14.0-18.0 [facility] Comment on above: Performed By: #### C BC ####[facility] Qfdqzxaegw3467[address] [place], [place] [address]Dr. Farhat Leal IG # 0.11 10e3/ul Critically high 0.00-0.03 [facility] Comment on above: Performed By: #### C BC ####[facility] Xfoqzoszrs39[address] [place] [phone]. Farhat Elvis IG % 1.3 % Critically high 0.0-0.5 [facility] Comment on above: Performed By: #### C BC ####[facility] Xqtuiuxvgq6039 [place] [address]Dr. Farhat Leal LYMPH # 1.7 103/ul Normal 1.2-3.8 [facility] Comment on above: Performed By: #### C BC ####[facility] Motteoagfa[address] [place] [address]Dr. Farhat Leal Lymphocytes/100 WBC (Bld) 19.6 % Critically low 20.5-60.0 [facility] Comment on above: Performed By: #### C BC ####[facility] Cenctycajh04[address] [place], [place] [address]Dr. Farhat Leal MANUAL DIFF REQ NO Normal [facility] Comment on above: Performed By: #### C BC ####[facility] Pooknnrypn65[address] [place] [address]Dr. Farhat Elvis MCH (RBC) [Entitic mass] 31.1 pg Normal 25.9-34.0 [facility] Comment on above: Performed By: #### C BC ####[facility] Tgsdetgcbk8748 [place] [address]Dr. Farhat Leal MCHC (RBC) [Mass/Vol] 33.1 g/dL Normal 29.9-35.2 [facility] Comment on above: Performed By: #### C BC ####[facility] Bwcvkdgwsx9[address] [place], [place] [address]DrSkylar Leal MCV (RBC) [Entitic vol] 94.0 fL Normal 80.0-94.0 [facility] Comment on above: Performed By: #### C BC ####[facility] Zsnuhzfvjh[address] [place], [place] [address]DrSkylar Leal MONO # 1.1 103/ul Critically high 0.3-0.8 [facility] Comment on above: Performed By: #### C BC ####[facility] Wzowfnjtxh9705 [place] [address]DrSkylar Farhat Leal Monocytes/100 WBC (Bld) 12.7 % Critically high 1.7-12.0 [facility] Comment on above: Performed By: #### C BC ####[facility] Gacoitpegy[address]51 [place] [address]DrSkylar Farhat Leal NEUT # 5.3 103/ul Normal 1.4-6.5 [facility] Comment on above: Performed By: #### C BC ####[facility] Cuuztkjbjh4114 [place] [address]DrSkylar Farhat Leal Neutrophils/100 WBC (Bld) 62.5 % Normal 43.0-75.0 [facility] Comment on above: Performed By: #### C BC ####[facility] Vyluntapfh2975 [place] [address]DrSkylar Farhat Leal Platelet mean volume (Bld) [Entitic vol] 10.1 fL Normal 9.5-13.5 [facility] Comment on above: Performed By: #### C BC ####[facility] Flmvpbubas4221 [place] [address]Dr. Farhat Leal PLT 220 103/ul Normal 150-450 [facility] Comment on above: Performed By: #### C BC ####[facility] Xtdakoclzs7524 [place] [address]DrSkylar Farhat Leal RBC 4.31 106/ul Critically low 4.70-6.10 [facility] Comment on above: Performed By: #### C BC ####[facility] Paiialfcqq6439 [place] [phone] Farhat Elvis WBC 8.4 103/ul Normal 4.0-11.0 [facility] Comment on above: Performed By: #### C BC ####[facility] Mrspdbmbxz7055 [place] [address]DrSkylar Leal PROF CHEM 8 (BAS METB)on Anion gap [Moles/Vol] 15.5 mmol/L Normal [facility] Comment on above: Performed By: #### B MP ####[facility] Wiwhplfjyf555[address] [place], [place] [address]Dr. Farhat Leal Calcium [Mass/Vol] 8.9 mg/dL Normal 8.5-10.1 [facility] Comment on above: Performed By: #### B MP ####[facility] Bswxljzzdj045[address] [place], [place] [address]Dr. Farhat Leal Chloride [Moles/Vol] 92 mmol/L Critically low 98-107 [facility] Comment on above: Performed By: #### B MP ####[facility] Chzfqzanlo4833[address] [place], [place] [address]Dr. Farhat Leal CO2 [Moles/Vol] 25.7 mmol/L Normal 21.0-32.0 [facility] Comment on above: Performed By: #### B MP ####[facility] Ksfqgcdeca1627[address] [place], [place] [address]Dr. Farhat Leal Creatinine [Mass/Vol] 1.85 mg/dL Critically high 0.70-1.30 [facility] Comment on above: Performed By: #### B MP ####[facility] Tjhurzuyxu70[address] [place], [place] [address]Dr. Farhat Leal EGFR-AF BOLIVIAN 43 mL/min/1.73m2 Critically low >=60 [facility] Comment on above: Performed By: #### B MP ####[facility] Bgdbnfupme2824[address] [place], [place] [address]Dr. Farhat Leal EGFR-NON AF BOLIVIAN 36 mL/min/1.73m2 Critically low >=60 [facility] Comment on above: Performed By: #### B MP ####[facility] Enwocbtufe[address] [place], [place] [address]Dr. Farhat Leal Glucose [Mass/Vol] 410 mg/dL Critically high 74-106 [facility] Comment on above: Performed By: #### B MP ####[facility] Ivkbzscslr746[address] [place], [place] [address]Dr. Farhat Leal Potassium [Moles/Vol] 5.2 mmol/L Critically high 3.5-5.1 [facility] Comment on above: Performed By: #### B MP ####[facility] Ecvvmwwpff2424[address] [place], [place] [address]Dr. Farhat Leal Sodium [Moles/Vol] 128 mmol/L Critically low 136-145 Th [facility] Comment on above: Performed By: #### B MP ####[facility] Tbwdoofkpj8[address] [place], [place] [address]Dr. Farhat Leal Urea nitrogen [Mass/Vol] 75.0 mg/dL Critically high 7.0-18.0 [facility] Comment on above: Performed By: #### B MP ####[facility] Lynoccurbv893[address] [place], [place] [address]Dr. Farhat Leal Urea nitrogen/Creatinine [Mass ratio] 40.5 mg/mg Normal [facility] Comment on above: Performed By: #### B MP ####[facility] Lmfzjofvpw85[address] [place], [place] [address]Dr. Farhat Leal PTT HEPARIN MONITORon 2021 aPTT Coag (Bld) [Time] 51.2 s Normal 39.5-54.2 [facility] Comment on above: Performed By: #### P TTHEP ####[facility] Wwbsewdlky5414[address] [place], [place] [address]Dr. Farhat Leal aPTT Coag (Bld) [Time] 55.6 s Critically high 39.5-54. 2 [facility] Comment on above: Performed By: #### P TTHEP ####[facility] Dlnexjhoen474[address] [place], [place] [address]Dr. Farhat Leal aPTT Coag (Bld) [Time] 46.1 s Normal 39.5-54.2 [facility] Comment on above: Performed By: #### P TTHEP ####[facility] Duuwgqgcwi9044[address] [place], [place] [address]Dr. Farhat Leal aPTT Coag (Bld) [Time] 53.8 s Normal 39.5-54.2 [facility] Comment on above: Performed By: #### P TTHEP ####[facility] Ovflnslglf11[address] [place] [address]Dr. Farhat Leal CBC AUTO DIFFon 09-21-2021 BASO # 0.1 103/ul Normal 0.0-0.1 [facility] Comment on above: Performed By: #### C BC ####[facility] Dxiwwyugus[address] [place], [place] [address]Dr. Farhat Leal Basophils/100 WBC (Bld) 0.8 % Normal 0.2-2.0 [facility] Comment on above: Performed By: #### C BC ####[facility] Azwedppqrf856[address] [place], [place] [address]Dr. Farhat Leal EO # 0.4 103/ul Normal 0.0-0.7 [facility] Comment on above: Performed By: #### C BC ####[facility] Ylypihmjzj618[address] [place], [place] [address]Dr. Farhat Leal Eosinophils/100 WBC (Bld) 4.3 % Normal 0.9-7.0 [facility] Comment on above: Performed By: #### C BC ####[facility] Hsctaxelyq377[address] [place], [place] [address]Dr. Farhat Leal Erythrocyte distribution width (RBC) [Ratio] 12.5 % Normal 11.0-15.0 [facility] Comment on above: Performed By: #### C BC ####[facility] Euwxrlwuez2035[address] [place], [place] [address]Dr. Farhat Leal Hematocrit (Bld) [Volume fraction] 40.8 % Critically low 42.0-54.0 [facility] Comment on above: Performed By: #### C BC ####[facility] Lnmxalpeqy650[address] [place], [place] [address]Dr. Farhat Leal Hemoglobin (Bld) [Mass/Vol] 13.5 g/dL Critically low 14.0-18.0 [facility] Comment on above: Performed By: #### C BC ####[facility] Wjywqhhzmc[address] [place], [place] [address]Dr. Farhat Leal IG # 0.10 10e3/ul Critically high 0.00-0.03 [facility] Comment on above: Performed By: #### C BC ####[facility] Teygtchcgh4515 [place] [address]DrSkylar Farhat Elvis IG % 1.2 % Critically high 0.0-0.5 [facility] Comment on above: Performed By: #### C BC ####[facility] Kqufwrzcpv5763 [place] [address]DrSkylar Joshilorri Elvis LYMPH # 1.3 103/ul Normal 1.2-3.8 [facility] Comment on above: Performed By: #### C BC ####[facility] Sxnxqtrzea[address] [place], [place] [address]DrSkylar Leal Lymphocytes/100 WBC (Bld) 15.4 % Critically low 20.5-60.0 [facility] Comment on above: Performed By: #### C BC ####[facility] Xsgexcwazh00[address] [place], [place] [address]DrSkylar Leal MANUAL DIFF REQ NO Normal [facility] Comment on above: Performed By: #### C BC ####[facility] Fhenicxhqf1487[address] [place], [place] [address]DrSkylar Joshilorri Elvis MCH (RBC) [Entitic mass] 31.0 pg Normal 25.9-34.0 [facility] Comment on above: Performed By: #### C BC ####[facility] Uvpbweoawf8207 [place] [address]DrSkylar Joshilorri Elvis MCHC (RBC) [Mass/Vol] 33.1 g/dL Normal 29.9-35.2 [facility] Comment on above: Performed By: #### C BC ####[facility] Gunhprfcnq357[address] [place], [place] [address]DrSkylar Leal MCV (RBC) [Entitic vol] 93.8 fL Normal 80.0-94.0 [facility] Comment on above: Performed By: #### C BC ####[facility] Ihvwfkcpty65[address] [place], [place] [address]DrSkylar Leal MONO # 1.2 103/ul Critically high 0.3-0.8 [facility] Comment on above: Performed By: #### C BC ####[facility] Lhtagifqva7915 [place] [address]Dr. Farhat Leal Monocytes/100 WBC (Bld) 13.6 % Critically high 1.7-12.0 [facility] Comment on above: Performed By: #### C BC ####[facility] Featinqixk7768[address] [place], [place] [address]Dr. Farhat Leal NEUT # 5.5 103/ul Normal 1.4-6.5 [facility] Comment on above: Performed By: #### C BC ####[facility] Pbfrrigytc9673 [place] [address]Dr. Farhat Leal Neutrophils/100 WBC (Bld) 64.7 % Normal 43.0-75.0 [facility] Comment on above: Performed By: #### C BC ####[facility] Crlcmyxbcx1580[address] [place], [place] [address]Dr. Farhat Leal Platelet mean volume (Bld) [Entitic vol] 9.8 fL Normal 9.5-13.5 [facility] Comment on above: Performed By: #### C BC ####[facility] Uixlpkgyqf126[address] [place], [place] [address]Dr. Farhat Leal PLT 206 103/ul Normal 150-450 [facility] Comment on above: Performed By: #### C BC ####[facility] Kjomtgwgob5525[address] [place], [place] [address]Dr. Farhat Leal RBC 4.35 106/ul Critically low 4.70-6.10 [facility] Comment on above: Performed By: #### C BC ####[facility] Gdavjhytuc[address] [place], [place] [address]Dr. Farhat Leal WBC 8.4 103/ul Normal 4.0-11.0 [facility] Comment on above: Performed By: #### C BC ####[facility] Ninsojcstr7[address] [place], [place] [address]DrSkylar Farhat Elvis PROF CHEM 8 (BAS METB)on Anion gap [Moles/Vol] 12.3 mmol/L Normal [facility] Comment on above: Performed By: #### B MP ####[facility] Owtbpshiyu63[address] [place], [place] [address]Dr. Farhat Leal Calcium [Mass/Vol] 8.6 mg/dL Normal 8.5-10.1 [facility] Comment on above: Performed By: #### B MP ####[facility] Jxwxkfsetc712[address] [place], [place] [address]Dr. Farhat Leal Chloride [Moles/Vol] 94 mmol/L Critically low 98-107 [facility] Comment on above: Performed By: #### B MP ####[facility] Koxbxixtom538[address] [place], [place] [address]Dr. Farhat Leal CO2 [Moles/Vol] 30.8 mmol/L Normal 21.0-32.0 [facility] Comment on above: Performed By: #### B MP ####[facility] Qsvsaofsyi018[address] [place], [place] [address]Dr. Farhat Leal Creatinine [Mass/Vol] 1.99 mg/dL Critically high 0.70-1.30 [facility] Comment on above: Performed By: #### B MP ####[facility] Lngmtbswfa557[address] [place], [place] [address]Dr. Farhat Leal EGFR-AF BOLIVIAN 40 mL/min/1.73m2 Critically low >=60 [facility] Comment on above: Performed By: #### B MP ####[facility] Mqvxnblbho100[address] [place], [place] [address]Dr. Farhat Leal EGFR-NON AF BOLIVIAN 33 mL/min/1.73m2 Critically low >=60 [facility] Comment on above: Performed By: #### B MP ####[facility] Lfghhnhcun52[address] [place], [place] [address]Dr. Farhat Leal Glucose [Mass/Vol] 264 mg/dL Critically high 74-106 [facility] Comment on above: Performed By: #### B MP ####[facility] Pzqawmmvdg1116[address] [place], [place] [address]Dr. Farhat Leal Potassium [Moles/Vol] 5.1 mmol/L Normal 3.5-5.1 [facility] Comment on above: Performed By: #### B MP ####[facility] Mjbmckzyxs9[address] [place], [place] [address]Dr. Farhat Leal Sodium [Moles/Vol] 132 mmol/L Critically low 136-145 Th [facility] Comment on above: Performed By: #### B MP ####[facility] Axhngkhkuk[address] [place], [place] [address]Dr. Farhat Leal Urea nitrogen [Mass/Vol] 72.0 mg/dL Critically high 7.0-18.0 [facility] Comment on above: Performed By: #### B MP ####[facility] Ctqgwupaig380[address] [place], [place] [address]Dr. Farhat Leal Urea nitrogen/Creatinine [Mass ratio] 36.2 mg/mg Normal [facility] Comment on above: Performed By: #### B MP ####[facility] Slxlcorhsl395[address] [place], [place] [address]Dr. Farhat Leal PTT HEPARIN MONITORon 2021 aPTT Coag (Bld) [Time] 45.3 s Normal 39.5-54.2 [facility] Comment on above: Performed By: #### P TTHEP ####[facility] Cgiipkntqu20[address] [place], [place] [address]Dr. Farhat Leal aPTT Coag (Bld) [Time] 68.0 s Critically high 39.5-54. 2 [facility] Comment on above: Performed By: #### P TTHEP ####[facility] Rpmgezehaz[address] [place], [place] [address]Dr. Farhat Leal aPTT Coag (Bld) [Time] 69.4 s Critically high 39.5-54. 2 [facility] Comment on above: Performed By: #### P TTHEP ####[facility] Erzihkgdni123[address] [place], [place] [address]Dr. Farhat Leal aPTT Coag (Bld) [Time] 53.5 s Normal 39.5-54.2 [facility] Comment on above: Performed By: #### P TTHEP ####[facility] Cxixmwlfxu4953 [place] [address]Dr. Farhat Leal aPTT Coag (Bld) [Time] 126.9 s Critically high 39.5-54. 2 [facility] Comment on above: Performed By: #### P TTHEP ####[facility] [address]xejzliloc[address] [address] [place], [place] [address]DrSkylar Leal CBC AUTO DIFFon 09-20-2021 BASO # 0.1 103/ul Normal 0.0-0.1 [facility] Comment on above: Performed By: #### C BC ####[facility] Uibwkpppyy[address] [place], [place] [address]DrSkylar Leal Basophils/100 WBC (Bld) 0.7 % Normal 0.2-2.0 [facility] Comment on above: Performed By: #### C BC ####[facility] Nsfjnbtimi[address] [place], [place] [address]DrSkylar Leal EO # 0.2 103/ul Normal 0.0-0.7 [facility] Comment on above: Performed By: #### C BC ####[facility] Ubskabvhib[address] [place], [place] [address]DrSkylar Leal Eosinophils/100 WBC (Bld) 3.2 % Normal 0.9-7.0 [facility] Comment on above: Performed By: #### C BC ####[facility] Yhsbppmpcz[address] [place], [place] [address]DrSkylar Leal Erythrocyte distribution width (RBC) [Ratio] 12.4 % Normal 11.0-15.0 [facility] Comment on above: Performed By: #### C BC ####[facility] Yhyogcuygg57[address] [place], [place] [address]DrSkylar Leal Hematocrit (Bld) [Volume fraction] 40.1 % Critically low 42.0-54.0 [facility] Comment on above: Performed By: #### C BC ####[facility] Vtsrjlbuer722[address] [place], [place] [address]Dr. Farhat Leal Hemoglobin (Bld) [Mass/Vol] 13.4 g/dL Critically low 14.0-18.0 [facility] Comment on above: Performed By: #### C BC ####[facility] [address] [place] [address]Dr. Madelynlorri Leal IG # 0.08 10e3/ul Critically high 0.00-0.03 [facility] Comment on above: Performed By: #### C BC ####[facility] [address]dsdya[address] [place] [address]Dr. Madelynlorri Leal IG % 1.1 % Critically high 0.0-0.5 [facility] Comment on above: Performed By: #### C BC ####[facility] Dzdrhtyilv9[address] [place], [place] [address]Dr. Farhat Leal LYMPH # 1.3 103/ul Normal 1.2-3.8 [facility] Comment on above: Performed By: #### C BC ####[facility] Nlnojyjraw[address] [place], [place] [address]Dr. Farhat Leal Lymphocytes/100 WBC (Bld) 17.3 % Critically low 20.5-60.0 [facility] Comment on above: Performed By: #### C BC ####[facility] Gfux[address]kwqk65[address] [place] [address]DrSkylar Madelynlorri Leal MANUAL DIFF REQ NO Normal [facility] Comment on above: Performed By: #### C BC ####[facility] Bjetkgamko636[address] [place], [place] [address]DrSkylar Farhat Elvis MCH (RBC) [Entitic mass] 31.2 pg Normal 25.9-34.0 [facility] Comment on above: Performed By: #### C BC ####[facility] Ciwodnnvis127[address] [place], [place] [address]DrSkylar Farhat Elvis MCHC (RBC) [Mass/Vol] 33.4 g/dL Normal 29.9-35.2 [facility] Comment on above: Performed By: #### C BC ####[facility] Aarpbcvxak7826[address] [place], [place] [address]Dr. Farhat Elvis MCV (RBC) [Entitic vol] 93.3 fL Normal 80.0-94.0 [facility] Comment on above: Performed By: #### C BC ####[facility] [address]wtuzxnv[address] [place] [address]Dr. Farhat Leal MONO # 0.9 103/ul Critically high 0.3-0.8 [facility] Comment on above: Performed By: #### C BC ####[facility] Jzkhosghtc9087 [place] [address]DrSkylar Farhat Elvis Monocytes/100 WBC (Bld) 12.4 % Critically high 1.7-12.0 [facility] Comment on above: Performed By: #### C BC ####[facility] Vkxwqzbbdl[address] [place], [place] [address]Dr. Farhat Leal NEUT # 4.7 103/ul Normal 1.4-6.5 [facility] Comment on above: Performed By: #### C BC ####[facility] Sgbyspclfy400[address] [place], [place] [address]Dr. Farhat Elvis Neutrophils/100 WBC (Bld) 65.3 % Normal 43.0-75.0 [facility] Comment on above: Performed By: #### C BC ####[facility] Jpemxgjepb436[address] [place], [place] [address]Dr. Farhat Elvis Platelet mean volume (Bld) [Entitic vol] 9.9 fL Normal 9.5-13.5 [facility] Comment on above: Performed By: #### C BC ####[facility] Zqbmewaoji168[address] [place], [place] [address]Dr. Madelynlorri Elvis PLT 180 103/ul Normal 150-450 [facility] Comment on above: Performed By: #### C BC ####[facility] Cgeobihhxm54[address] [place], [place] [address]Dr. Madelynlorri Elvis RBC 4.30 106/ul Critically low 4.70-6.10 [facility] Comment on above: Performed By: #### C BC ####[facility] Fpzfknpode130[address] [place], [place] [address]DrSkylar Leal WBC 7.2 103/ul Normal 4.0-11.0 [facility] Comment on above: Performed By: #### C BC ####[facility] Jkaexurjhu185[address] [place], [place] [address]Dr. Farhat Leal PTT HEPARIN MONITORon 2021 aPTT Coag (Bld) [Time] 26.7 s Critically low 39.5-54.2 [facility] Comment on above: Performed By: #### P TTHEP ####[facility] Oqjgrnwxwt7436[address] [place], [place] [address]Dr. Farhat Elvis aPTT Coag (Bld) [Time] 121.0 s Critically high 39.5-54. 2 [facility] Comment on above: Performed By: #### P TTHEP ####[facility] Fmulhktxbx228[address] [place], [place] [address]Dr. Farhat Elvis aPTT Coag (Bld) [Time] 27.6 s Critically low 39.5-54.2 [facility] Comment on above: Performed By: #### P TTHEP ####[facility] Ewrqmuhfwz298[address] [place], [place] [address]Dr. Farhat Elvis aPTT Coag (Bld) [Time] 139.0 s Critically high 39.5-54. 2 [facility] Comment on above: Performed By: #### P TTHEP ####[facility] Jvbezcfoqd7812[address] [place], [place] [address]Dr. Farhat Elvis CBC AUTO DIFFon 09-19-2021 BASO # 0.0 103/ul Normal 0.0-0.1 [facility] Comment on above: Performed By: #### C BC ####[facility] Tuppitmujp660[address] [place], [place] [address]Dr. Farhat Elvis Basophils/100 WBC (Bld) 0.5 % Normal 0.2-2.0 [facility] Comment on above: Performed By: #### C BC ####[facility] Lvjqwyelbc0670[address] [place], [place] [address]DrSkylar Leal EO # 0.2 103/ul Normal 0.0-0.7 [facility] Comment on above: Performed By: #### C BC ####[facility] [address]felcdpr30[address] [place] [address]Dr. Farhat Leal Eosinophils/100 WBC (Bld) 2.6 % Normal 0.9-7.0 [facility] Comment on above: Performed By: #### C BC ####[facility] Epwrvsjmtw20[address] [place] [address]Dr. Farhat Leal Erythrocyte distribution width (RBC) [Ratio] 12.5 % Normal 11.0-15.0 [facility] Comment on above: Performed By: #### C BC ####[facility] Etktruyowg5498 [place] [address]Dr. Farhat Leal Hematocrit (Bld) [Volume fraction] 39.2 % Critically low 42.0-54.0 [facility] Comment on above: Performed By: #### C BC ####[facility] Ppzuhunncp8637[address] [place], [place] [address]Dr. Farhat Leal Hemoglobin (Bld) [Mass/Vol] 13.3 g/dL Critically low 14.0-18.0 [facility] Comment on above: Performed By: #### C BC ####[facility] Vamlqxnmhz0045[address] [place], [place] [address]Dr. Farhat Leal IG # 0.08 10e3/ul Critically high 0.00-0.03 [facility] Comment on above: Performed By: #### C BC ####[facility] Wxjxlqfqyj9667[address] [place], [place] [address]Dr. Farhat Leal IG % 0.9 % Critically high 0.0-0.5 [facility] Comment on above: Performed By: #### C BC ####[facility] Zvsrvuokpz517[address] [place], [place] [address]Dr. Madelynlorri Elvis LYMPH # 1.5 103/ul Normal 1.2-3.8 [facility] Comment on above: Performed By: #### C BC ####[facility] Ibmzzhsfmj1890[address] [place], [place] [address]Dr. Farhat Leal Lymphocytes/100 WBC (Bld) 17.2 % Critically low 20.5-60.0 [facility] Comment on above: Performed By: #### C BC ####[facility] Ttriulhogo22[address] [place] [address]DrSkylar Leal MANUAL DIFF REQ NO Normal [facility] Comment on above: Performed By: #### C BC ####[facility] Xhddvyigje53[address] [place] [address]Dr. Farhat Leal MCH (RBC) [Entitic mass] 31.7 pg Normal 25.9-34.0 [facility] Comment on above: Performed By: #### C BC ####[facility] Adtpoizdub1680[address] [place], [place] [address]Dr. Farhat Leal MCHC (RBC) [Mass/Vol] 33.9 g/dL Normal 29.9-35.2 [facility] Comment on above: Performed By: #### C BC ####[facility] Pqyoclqhmm546[address] [place], [place] [address]DrSkylar Leal MCV (RBC) [Entitic vol] 93.3 fL Normal 80.0-94.0 [facility] Comment on above: Performed By: #### C BC ####[facility] Ryivaplgkh2900[address] [place], [place] [address]DrSkylar Leal MONO # 1.2 103/ul Critically high 0.3-0.8 [facility] Comment on above: Performed By: #### C BC ####[facility] Bxwvyvgffe7520[address] [place], [place] [address]DrSkylar Leal Monocytes/100 WBC (Bld) 13.7 % Critically high 1.7-12.0 [facility] Comment on above: Performed By: #### C BC ####[facility] Xwjzsijyxz9[address] [place], [place] [address]DrSkylar Leal NEUT # 5.5 103/ul Normal 1.4-6.5 [facility] Comment on above: Performed By: #### C BC ####[facility] Uvwjkdntkt285[address] [place], [place] [address]DrSkylar Leal Neutrophils/100 WBC (Bld) 65.1 % Normal 43.0-75.0 [facility] Comment on above: Performed By: #### C BC ####[facility] Fcfz[address]zhqy3760 [place] [address]DrSkylar Farhat Leal Platelet mean volume (Bld) [Entitic vol] 9.6 fL Normal 9.5-13.5 [facility] Comment on above: Performed By: #### C BC ####[facility] Zcbnginbep0484 [place] [address]DrSkylar Farhat Leal PLT 163 103/ul Normal 150-450 [facility] Comment on above: Performed By: #### C BC ####[facility] Asygecdgnw6409 [place] [address]DrSkylar Farhat Leal RBC 4.20 106/ul Critically low 4.70-6.10 [facility] Comment on above: Performed By: #### C BC ####[facility] Zftkwhkwyo3234[address] [place], [place] [address]DrSkylar Farhat Elvis WBC 8.4 103/ul Normal 4.0-11.0 [facility] Comment on above: Performed By: #### C BC ####[facility] Imrwxixetz101[address] [place], [place] [address]DrSkylar Farhat Leal POINT OF CARE GLUCOSEon Glucose [Mass/Vol] 300 mg/dL Critically high 74-106 [facility] Comment on above: Performed By: #### P OCGLUC ####[facility] Pajuessrio30[address] [place], [place] [address]DrSkylar Farhat Elvis POTASSIUMon 09-19-2021 Potassium [Moles/Vol] 4.9 mmol/L Normal 3.5-5.1 [facility] Comment on above: Performed By: #### K ####[facility] Rifuoffhjd2980[address] [place], [place] [address]DrSkylar Farhat Elvis PTT HEPARIN MONITORon 2021 aPTT Coag (Bld) [Time] 23.4 s Critically low 39.5-54.2 [facility] Comment on above: Result Comment: repe ated Performed By: #### P TTHEP ####[facility] Nctbwuznrc9685[address] [place], [place] [address]Dr. Farhat Elvis aPTT Coag (Bld) [Time] 101.2 s Critically high 39.5-54. 2 [facility] Comment on above: Performed By: #### P TTHEP ####[facility] Lysaqpiepk1744[address] [place], [place] [address]Dr. Farhat Leal aPTT Coag (Bld) [Time] 81.0 s Critically high 39.5-54. 2 [facility] Comment on above: Result Comment: Test Repeated. Critical Value Verified Performed By: #### P TTHEP ####[facility] Uurdkiwcsx8801[address] [place], [place] [address]DrSkylar Leal CBC AUTO DIFFon 09-18-2021 BASO # 0.0 103/ul Normal 0.0-0.1 [facility] Comment on above: Performed By: #### C BC ####[facility] Cvlwlipzny9[address] [place], [place] [address]DrSkylar Leal Basophils/100 WBC (Bld) 0.4 % Normal 0.2-2.0 [facility] Comment on above: Performed By: #### C BC ####[facility] Gcjkildzac617[address] [place], [place] [address]DrSkylar Leal EO # 0.1 103/ul Normal 0.0-0.7 [facility] Comment on above: Performed By: #### C BC ####[facility] Tqdgzruglh8[address] [place], [place] [address]DrSkylar Leal Eosinophils/100 WBC (Bld) 0.8 % Critically low 0.9-7.0 [facility] Comment on above: Performed By: #### C BC ####[facility] Yuzbarpynr04[address] [place], [place] [address]DrSkylar Leal Erythrocyte distribution width (RBC) [Ratio] 12.4 % Normal 11.0-15.0 [facility] Comment on above: Performed By: #### C BC ####[facility] Jbzylwxyjq367[address] [place], [place] [address]DrSkylar Leal Hematocrit (Bld) [Volume fraction] 41.7 % Critically low 42.0-54.0 [facility] Comment on above: Performed By: #### C BC ####[facility] Xsydtuzecc3188 [place] [address]DrSkylar Leal Hemoglobin (Bld) [Mass/Vol] 14.1 g/dL Normal 14.0-18.0 [facility] Comment on above: Performed By: #### C BC ####[facility] Hgohxkiihe3239 [place] [address]Dr. Farhat Leal IG # 0.06 10e3/ul Critically high 0.00-0.03 [facility] Comment on above: Performed By: #### C BC ####[facility] Oxuahvbkgf3477 [place] [address]DrSkylar Leal IG % 0.6 % Critically high 0.0-0.5 [facility] Comment on above: Performed By: #### C BC ####[facility] Nfslawbtvy3062 [place] [address]DrSkylar Leal LYMPH # 0.6 103/ul Critically low 1.2-3.[address] [facility] Comment on above: Performed By: #### C BC ####[facility] Lqxcrgpgrz4248 [place] [address]DrSkylar Leal Lymphocytes/100 WBC (Bld) 6.5 % Critically low 20.5-60.0 [facility] Comment on above: Performed By: #### C BC ####[facility] Gkdafmrpuu9066 [place] [address]DrSkylar Leal MANUAL DIFF REQ NO Normal [facility] Comment on above: Performed By: #### C BC ####[facility] Xayqaqkeez5443 [place] [address]DrSkylar Leal MCH (RBC) [Entitic mass] 31.6 pg Normal 25.9-34.0 [facility] Comment on above: Performed By: #### C BC ####[facility] Qkocqlhtfq9475[address] [place], [place] [address]DrSkylar Leal MCHC (RBC) [Mass/Vol] 33.8 g/dL Normal 29.9-35.2 [facility] Comment on above: Performed By: #### C BC ####[facility] Ppmdrirtgc2548 [place] [id number]. Farhat Elvsi MCV (RBC) [Entitic vol] 93.5 fL Normal 80.0-94.0 [facility] Comment on above: Performed By: #### C BC ####[facility] Cpsuqcaqry8087 [place] [phone]. Farhat Elvis MONO # 1.0 103/ul Critically high 0.3-0.8 [facility] Comment on above: Performed By: #### C BC ####[facility] Jaupwxmkta0499 [place] [address]Dr. Farhat Leal Monocytes/100 WBC (Bld) 10.4 % Normal 1.7-12.0 [facility] Comment on above: Performed By: #### C BC ####[facility] Ljqizjsknt59[address] [place], [place] [address]Dr. Farhat Leal NEUT # 7.8 103/ul Critically high 1.4-6.5 [facility] Comment on above: Performed By: #### C BC ####[facility] Mltiqcfeej220[address] [place], [place] [address]Dr. Farhat Leal Neutrophils/100 WBC (Bld) 81.3 % Critically high 43.0-75.0 [facility] Comment on above: Performed By: #### C BC ####[facility] Wuumjaxmra4469 [place] [address]Dr. Madelynlorri Leal Platelet mean volume (Bld) [Entitic vol] 9.9 fL Normal 9.5-13.5 [facility] Comment on above: Performed By: #### C BC ####[facility] Vhlvnuirfg80[address] [place] [phone]. Farhat Leal PLT 169 103/ul Normal 150-450 [facility] Comment on above: Performed By: #### C BC ####[facility] Ylfzsyxoim9278 [place] [phone]. Farhat Leal RBC 4.46 106/ul Critically low 4.70-6.10 [facility] Comment on above: Performed By: #### C BC ####[facility] Tjquupuyih18[address] [place] [phone]. Farhat Leal WBC 9.6 103/ul Normal 4.0-11.0 [facility] Comment on above: Performed By: #### C BC ####[facility] Ppubuexyrt6232 [place] [phone]. Farhat Leal BASO # 0.0 103/ul Normal 0.0-0.1 [facility] Comment on above: Performed By: #### C BC ####[facility] Lfpswnijdo409[address] [place], [place] [address]Dr. Farhat Leal Basophils/100 WBC (Bld) 0.4 % Normal 0.2-2.0 [facility] Comment on above: Performed By: #### C BC ####[facility] Tlvjzpbtic[address] [place], [place] [address]Dr. Farhat Leal EO # 0.1 103/ul Normal 0.0-0.7 [facility] Comment on above: Performed By: #### C BC ####[facility] Lntgyvmfwa[address] [place], [place] [address]Dr. Farhat Leal Eosinophils/100 WBC (Bld) 1.1 % Normal 0.9-7.0 [facility] Comment on above: Performed By: #### C BC ####[facility] Vqgsljlpzi70[address] [place], [place] [address]Dr. Farhat Leal Erythrocyte distribution width (RBC) [Ratio] 12.6 % Normal 11.0-15.0 [facility] Comment on above: Performed By: #### C BC ####[facility] Efhsyazepa008[address] [place], [place] [address]Dr. Farhat Leal Hematocrit (Bld) [Volume fraction] 40.8 % Critically low 42.0-54.0 [facility] Comment on above: Performed By: #### C BC ####[facility] Tasfkurgpt4527 [place] [address]Dr. Farhat Leal Hemoglobin (Bld) [Mass/Vol] 13.6 g/dL Critically low 14.0-18.0 [facility] Comment on above: Performed By: #### C BC ####[facility] Amiandmjjp030[address] [place] [address]Dr. Farhat Leal IG # 0.08 10e3/ul Critically high 0.00-0.03 [facility] Comment on above: Performed By: #### C BC ####[facility] Vfhgvqbqgd4177 [place] [address]Dr. Farhat eLal IG % 0.9 % Critically high 0.0-0.5 [facility] Comment on above: Performed By: #### C BC ####[facility] Umhqmimxkm4355 [place] [address]Dr. Farhat Leal LYMPH # 0.8 103/ul Critically low 1.2-3.[address] [facility] Comment on above: Performed By: #### C BC ####[facility] Inzhgqnwdu5541 [place] [address]Dr. Farhat Leal Lymphocytes/100 WBC (Bld) 8.7 % Critically low 20.5-60.0 [facility] Comment on above: Performed By: #### C BC ####[facility] [address]se[address]utyor[address] [place] [address]Dr. Farhat Leal MANUAL DIFF REQ NO Normal [facility] Comment on above: Performed By: #### C BC ####[facility] Eqvyviwyvb2838 [place] [address]Dr. Farhat Leal MCH (RBC) [Entitic mass] 31.6 pg Normal 25.9-34.0 [facility] Comment on above: Performed By: #### C BC ####[facility] Ovqchipmvv98[address] [place], [place] [address]Dr. Farhat Leal MCHC (RBC) [Mass/Vol] 33.3 g/dL Normal 29.9-35.2 [facility] Comment on above: Performed By: #### C BC ####[facility] Zvclpldfvk1360 [place] [phone]. Farhat Leal MCV (RBC) [Entitic vol] 94.9 fL Critically high 80.0-94.0 [facility] Comment on above: Performed By: #### C BC ####[facility] Dvhfwzjptl4251 [place] [phone]. Farhat Leal MONO # 1.0 103/ul Critically high 0.3-0.8 [facility] Comment on above: Performed By: #### C BC ####[facility] Pqvjdiqakh9910[address] [place], [place] [address]Dr. Farhat Leal Monocytes/100 WBC (Bld) 11.3 % Normal 1.7-12.0 [facility] Comment on above: Performed By: #### C BC ####[facility] Clcymuuykj130[address] [place], [place] [address]Dr. Farhat Leal NEUT # 6.9 103/ul Critically high 1.4-6.5 [facility] Comment on above: Performed By: #### C BC ####[facility] Ybjhvmacgr4680[address] [place], [place] [address]Dr. Farhat Leal Neutrophils/100 WBC (Bld) 77.6 % Critically high 43.0-75.0 [facility] Comment on above: Performed By: #### C BC ####[facility] Lohnvsrtqa[address] [place], [place] [address]Dr. Farhat Leal Platelet mean volume (Bld) [Entitic vol] 9.7 fL Normal 9.5-13.5 [facility] Comment on above: Performed By: #### C BC ####[facility] Pvfqofqaut5857 [place] [phone]. Farhat Elvis PLT 171 103/ul Normal 150-450 [facility] Comment on above: Performed By: #### C BC ####[facility] [address]qjxdtrxxd[address] [place], [place] [address]Dr. Farhat Elvis RBC 4.30 106/ul Critically low 4.70-6.10 [facility] Comment on above: Performed By: #### C BC ####[facility] Skqkidbima727[address] [place], [place] [address]Dr. Farhat Leal WBC 8.9 103/ul Normal 4.0-11.0 [facility] Comment on above: Performed By: #### C BC ####[facility] Rnxhyjjjcz48[address] [place] [address]Dr. Madelynlorri Leal Covid-19 PCR (CVDTB)on SARS-CoV-2 (COVID-19) RNA JOSH+probe Ql (Unsp spec) Not detected Normal NOT DETECTED [facility] Comment on above: Result Comment: When [...] for this test is supported by the [employer] of Health and Human Service's declaration that [...] be used). Performed By: #### C VDTBH ####[facility] Lvdtckxwyd65[address] [place] [address]Dr. Farhat Leal PROF 14(COMP METB)on 022 Albumin [Mass/Vol] 2.6 g/dL Critically low 3.4-5.0 Th e [facility] Comment on above: Performed By: #### C MP ####[facility] Bfcqplkdfx22[address] [place], [place] [address]DrSkylar Leal Albumin/Globulin [Mass ratio] 0.7 {ratio} Normal [facility] Comment on above: Performed By: #### C MP ####[facility] Lrfmpbfpwf5011 [place] [address]DrSkylar Leal ALP [Catalytic activity/Vol] 88 U/L Normal 46-116 [facility] Comment on above: Performed By: #### C MP ####[facility] Mweavavsmq6800 [place] [address]Dr. Farhat Leal ALT [Catalytic activity/Vol] 15 U/L Critically low 16-63 [facility] Comment on above: Performed By: #### C MP ####[facility] Eombxwjhxx1416 [place] [address]Dr. Farhat Leal Anion gap [Moles/Vol] 11.7 mmol/L Normal Th [facility] Comment on above: Performed By: #### C MP ####[facility] Jhigjlvycz[address] [place], [place] [address]Dr. Farhat Leal AST [Catalytic activity/Vol] 25 U/L Normal 15-37 [facility] Comment on above: Performed By: #### C MP ####[facility] Ngvaebtyrq92[address] [place], [place] [address]Dr. Farhat Leal Bilirubin [Mass/Vol] 0.6 mg/dL Normal 0.2-1.0 [facility] Comment on above: Performed By: #### C MP ####[facility] Dxkvuapyzu[address] [place], [place] [address]Dr. Farhat Leal Calcium [Mass/Vol] 8.9 mg/dL Normal 8.5-10.1 [facility] Comment on above: Performed By: #### C MP ####[facility] Upquaxqsin[address] [place], [place] [address]Dr. Farhat Leal Chloride [Moles/Vol] 93 mmol/L Critically low 98-107 [facility] Comment on above: Performed By: #### C MP ####[facility] Adbychafvn[address] [place], [place] [address]Dr. Farhat Leal CO2 [Moles/Vol] 28.9 mmol/L Normal 21.0-32.0 [facility] Comment on above: Performed By: #### C MP ####[facility] Frfwhcynof[address] [place], [place] [address]Dr. Farhat Leal Creatinine [Mass/Vol] 2.09 mg/dL Critically high 0.70-1.30 [facility] Comment on above: Performed By: #### C MP ####[facility] [address] [place] [address]Dr. Farhat Leal EGFR-AF BOLIVIAN 38 mL/min/1.73m2 Critically low >=60 [facility] Comment on above: Performed By: #### C MP ####[facility] [address] [place] [place] [address]Dr. Farhat Leal EGFR-NON AF BOLIVIAN 31 mL/min/1.73m2 Critically low >=60 [facility] Comment on above: Performed By: #### C MP ####[facility] [address] [place], [place] [address]Dr. Farhat Leal Globulin (S) [Mass/Vol] 3.7 g/dL Normal [facility] Comment on above: Performed By: #### C MP ####[facility] J[address] [place], [place] [address]Dr. Farhat Leal Glucose [Mass/Vol] 214 mg/dL Critically high 74-106 T [facility] Comment on above: Performed By: #### C MP ####[facility] Iysbmqx[address] [place], [place] [address]Dr. Farhat Leal Potassium [Moles/Vol] 5.6 mmol/L Critically high 3.5-5.1 [facility] Comment on above: Performed By: #### C MP ####[facility] [address] [place], [place] [address]Dr. Farhat Leal Protein [Mass/Vol] 6.3 g/dL Critically low 6.4-8.2 Th [facility] Comment on above: Performed By: #### C MP ####[facility] Z[address] [place], [place] [address]Dr. Farhat Leal Sodium [Moles/Vol] 128 mmol/L Critically low 136-145 Th [facility] Comment on above: Performed By: #### C MP ####[facility] Aowwwbwvsa[address] [place], [place] [address]Dr. Farhat Leal Urea nitrogen [Mass/Vol] 65.0 mg/dL Critically high 7.0-18.0 [facility] Comment on above: Performed By: #### C MP ####[facility] [address] [place] [address]Dr. Farhat Leal Urea nitrogen/Creatinine [Mass ratio] 31.1 mg/mg Normal [facility] Comment on above: Performed By: #### C MP ####[facility] [address] [place] [address]Dr. Farhat Leal Albumin [Mass/Vol] 2.5 g/dL Critically low 3.4-5.0 Th e [facility] Comment on above: Performed By: #### T MYRIAM, CMP ####[facility] [address] [place], [place] [address]Dr. Farhat Leal Albumin/Globulin [Mass ratio] 0.7 {ratio} Normal [facility] Comment on above: Performed By: #### T MYRIAM, CMP ####[facility] [address] [place], [place] [address]Dr. Farhat Leal ALP [Catalytic activity/Vol] 83 U/L Normal 46-116 [facility] Comment on above: Performed By: #### T MYRIAM, CMP ####[facility] [address] [place], [place] [address]Dr. Farhat Leal ALT [Catalytic activity/Vol] 16 U/L Normal 16-63 [facility] Comment on above: Performed By: #### T MYRIAM, CMP ####[facility] Gilqretyop[address] [place], [place] [address]Dr. Farhat Leal Anion gap [Moles/Vol] 9.7 mmol/L Normal [facility] Comment on above: Performed By: #### T MYRIAM, CMP ####[facility] R[address]sx[address] [place], [place] [address]Dr. Farhat Leal AST [Catalytic activity/Vol] 27 U/L Normal 15-37 [facility] Comment on above: Performed By: #### T MYRIAM, CMP ####[facility] [address] [place], [place] [address]Dr. Farhat Leal Bilirubin [Mass/Vol] 0.5 mg/dL Normal 0.2-1.0 [facility] Comment on above: Performed By: #### T SH, CMP ####[facility] Pusffrb[address] [place], [place] [address]Dr. Farhat Leal Calcium [Mass/Vol] 8.8 mg/dL Normal 8.5-10.1 [facility] Comment on above: Performed By: #### T SH, CMP ####[facility] Vns[address] [place], [place] [address]Dr. Madelynlorri Leal Chloride [Moles/Vol] 95 mmol/L Critically low 98-107 [facility] Comment on above: Performed By: #### T SH, CMP ####[facility] Lnkzockrzb[address] [place], [place] [address]Dr. Madelynlorri Leal CO2 [Moles/Vol] 30.5 mmol/L Normal 21.0-32.0 [facility] Comment on above: Performed By: #### T SH, CMP ####[facility] Ewguefdfzw[address] [place], [place] [address]Dr. Farhat Elvis Creatinine [Mass/Vol] 2.18 mg/dL Critically high 0.70-1.30 [facility] Comment on above: Performed By: #### T SH, CMP ####[facility] Deokev[address]va[address] [place], [place] [address]Dr. Madelynlorri Elvis EGFR-AF BOLIVIAN 36 mL/min/1.73m2 Critically low >=60 [facility] Comment on above: Performed By: #### T SH, CMP ####[facility] [address] [place], [place] [address]Dr. Madelynlorri Elvis EGFR-NON AF BOLIVIAN 30 mL/min/1.73m2 Critically low >=60 [facility] Comment on above: Performed By: #### T SH, CMP ####[facility] K[address]ootvxwa[address] [place], [place] [address]Dr. Farhat Leal Globulin (S) [Mass/Vol] 3.5 g/dL Normal [facility] Comment on above: Performed By: #### T SH, CMP ####[facility] Fqgtswkzti[address] [place], [place] [address]Dr. Madelynlorri Leal Glucose [Mass/Vol] 141 mg/dL Critically high 74-106 T [facility] Comment on above: Performed By: #### T MYRIAM, CMP ####[facility] H[address] [place], [place] [address]Dr. Madelynlorri Leal Potassium [Moles/Vol] 5.2 mmol/L Critically high 3.5-5.1 [facility] Comment on above: Performed By: #### T MYRIAM, CMP ####[facility] Dtuisrckxn[address] [place], [place] [address]Dr. Farhat Leal Protein [Mass/Vol] 6.0 g/dL Critically low 6.4-8.2 [facility] Comment on above: Performed By: #### T MYRIAM, CMP ####[facility] R[address]ps[address] [place], [place] [address]Dr. Farhat Leal Sodium [Moles/Vol] 130 mmol/L Critically low 136-145 [facility] Comment on above: Performed By: #### T MYRIAM, CMP ####[facility] Yf[address]fr[address] [place], [place] [address]Dr. Farhat Leal Urea nitrogen [Mass/Vol] 63.0 mg/dL Critically high 7.0-18.0 [facility] Comment on above: Performed By: #### T MYRIAM, CMP ####[facility] [address]hw[address] [place], [place] [address]Dr. Farhat Leal Urea nitrogen/Creatinine [Mass ratio] 28.9 mg/mg Normal [facility] Comment on above: Performed By: #### T MYRIAM, CMP ####[facility] W[address] [place], [place] [address]Dr. Farhat Leal PROTIMEon 09-18-2021 INR Coag (PPP) [Relative time] 1.06 {INR} Normal [facility] Comment on above: Performed By: #### P T, PTT ####[facility] E[address]uzft[address] [place], [place] [address]Dr. Farhat Leal INR GUIDELINES SEE BELOW Normal [facility] Comment on above: Result Comment: MALINA RED INR: 2.0 - 3.0 CONDITIONS NOT LISTED BELOW 2.5 - 3.5 FOR PROSTHETIC HEART VALVE REPLACEMENT 2.5 - 3.5 RECURRENT THROMBOSIS Performed By: #### P T, PTT ####[facility] [address] [place] [address]Dr. Farhat Leal PT Coag (PPP) [Time] 11.4 s Normal 9.0-11.6 [facility] Comment on above: Performed By: #### P T, PTT ####[facility] [address] [place] [address]Dr. Farhat Leal PTTon 09-18-2021 aPTT Coag (Bld) [Time] 27.9 s Normal 22.3-36.2 [facility] Comment on above: Performed By: #### P T, PTT ####[facility] [address] [place] [address]Dr. Farhat Leal TSHon 09-18-2021 TSH 7.099 uIU/mL Critically high 0.358-3.740 [facility] Comment on above: Performed By: #### T SH, CMP ####[facility] [address] [place] [address]Dr. Farhat Leal US SALOME DOP LEG RTon 09-19-19 22 US SALOME DOP LEG RT Normal [facility] XR CHEST 1 Von 09-18-2021 XR CHEST 1 V Normal [facility] XR HIP RT 2 3V W PELVISon XR HIP RT 2 3V W PELVIS Normal [facility] Vital Signs Date Time Vital Sign Value Performing Clinician Facility 03-18-2023 13:37-0500 Body temperature 98.01 [degF] [employer] DO Work Phone: [facility] 03-18-2023 13:37-0500 Diastolic blood pressure 64 mm[Hg] [facility] DO Work Phone: [facility] 03-18-2023 13:37-0500 Heart rate 72 /min [facility] DO Work Phone: [facility] 03-18-2023 13:37-0500 SaO2% (BldA) [Mass fraction] 98 % Ni Petznick DO Work Phone: [facility] 03-18-2023 13:37-0500 Systolic blood pressure 118 mm[Hg] Ni Petznick DO Work Phone: [facility] 07-20-2022 13:35-0400 Body temperature 97.4 [degF] DO Devon Ball Work Phone: [facility] 07-20-2022 13:35-0400 Diastolic blood pressure 50 mm[Hg] DO Devon Ball Work Phone: [facility] 07-20-2022 13:35-0400 Heart rate 67 /min DO Devon Ball Work Phone: [facility] 07-20-2022 13:35-0400 Respiratory rate 20 /min DO Devon Ball Work Phone: [facility] 07-20-2022 13:35-0400 Systolic blood pressure 98 mm[Hg] DO Devon Ball Work Phone: [facility] 06-29-2022 14:46-0400 Body height 193.04 cm DO Devon Ball Work Phone: [facility] 02-26-2022 13:11-0500 Body temperature 96.6 [degF] Hina Peterson MD Work Phone: [facility] 02-26-2022 13:11-0500 Diastolic blood pressure 75 mm[Hg] Hina Peterson MD Work Phone: [facility] 02-26-2022 13:11-0500 Heart rate 75 /min Hina Peterson MD Work Phone: [facility] 02-26-2022 13:11-0500 Systolic blood pressure 88 mm[Hg] Hina Peterson MD Work Phone: [facility] 02-05-2022 08:29-0500 Body temperature 96.69 [degF] [facility] Work Phone: [facility] 02-05-2022 08:29-0500 Diastolic blood pressure 42 mm[Hg] [facility] Work Phone: [facility] 02-05-2022 08:29-0500 Heart rate 79 /min [facility] Work Phone: [facility] 02-05-2022 08:29-0500 SaO2% (BldA) [Mass fraction] 100 % [facility] Work Phone: [facility] 02-05-2022 08:29-0500 Systolic blood pressure 72 mm[Hg] [facility] Work Phone: [facility] 01-12-2022 11:00-0500 Diastolic blood pressure 54 mm[Hg] Alissa Major DIRECTOR CLINICAL APPLICATIONS.FLOOR TECH Work Phone: [facility] 01-12-2022 11:00-0500 Heart rate 88 /min Alissa Major DIRECTOR CLINICAL APPLICATIONS.FLOOR TECH Work Phone: [facility] 01-12-2022 11:00-0500 SaO2% (BldA) [Mass fraction] 93 % Alissa Major DIRECTOR CLINICAL APPLICATIONS.FLOOR TECH Work Phone: [facility] 01-12-2022 11:00-0500 Systolic blood pressure 96 mm[Hg] Alissa Major DIRECTOR CLINICAL APPLICATIONS.FLOOR TECH Work Phone: [facility] 01-12-2022 10:12-0500 Body temperature 97.9 [degF] Alissa Major DIRECTOR CLINICAL APPLICATIONS.FLOOR TECH Work Phone: [facility] 01-12-2022 10:12-0500 Respiratory rate 18 /min Alissa Major DIRECTOR CLINICAL APPLICATIONS.FLOOR TECH Work Phone: [facility] 11-17-2021 15:59-0400 Body height 193 cm No Reeder DO Work Phone: [facility] 11-17-2021 15:59-0400 Body weight 111.58 kg No Reeder DO Work Phone: [facility] 11-17-2021 15:59-0400 Diastolic blood pressure 59 mm[Hg] No Reeder DO Work Phone: [facility] 11-17-2021 15:59-0400 Heart rate 86 /min No Reeder DO Work Phone: [facility] 11-17-2021 15:59-0400 SaO2% (BldA) [Mass fraction] 97 % No Reeder DO Work Phone: [facility] 11-17-2021 15:59-0400 Systolic blood pressure 104 mm[Hg] No Reeder DO Work Phone: [facility] Encounters Encounter Date Encounter Type Care Provider Facility Start: 03-18-2023 End: 03-18-2023 ambulatory NI CABRERA Not Available Start: 03-18-2023 End: 03-18-2023 Office outpatient visit 25 minutes Ni Cabrera DO Work Phone: [facility] [address] Comment on above: 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 ([facility]/HCC) (Primary Dx); 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 ([facility]/HCC); Type 1 diabetes mellitus with nephropathy ([facility]); Type 1 diabetes mellitus with hypoglycemia and without coma ([facility]); 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 ([facility]/HCC) Start: 02-17-2023 End: 02-17-2023 ambulatory Devon Lillie Other [employer] Other Start: 02-17-2023 Telephone encounter Devon Moreira [facility] Start: 01-14-2023 End: 01-14-2023 ambulatory Devon Lillie Other [employer] Other Start: 01-14-2023 [facility] nursing facil c are/day minor complj 15 min [facility] Start: 12-10-2022 End: 12-10-2022 ambulatory Devon Lillie Other [employer] Other Start: 12-10-2022 [facility] nursing facil c are/day minor complj 15 min [facility] Start: 11-12-2022 End: 11-12-2022 ambulatory Devon Lillie Other [employer] Other Start: 11-12-2022 Sbsq nursing facil c are/day minor complj 15 min [facility] Start: 10-16-2022 Refill Asia Pike MD Work Phone: [facility] Comment on above: Med Change Request Start: 10-12-2022 End: 10-12-2022 ambulatory Devon Moreira Other [employer] Other Start: 10-12-2022 Telephone encounter Devon NUNEZ [facility] Start: 10-08-2022 End: 10-08-2022 ambulatory Devon Moreira Other [employer] Other Start: 10-08-2022 Sbsq nursing facil c are/day new problem 25 min [facility] Start: 09-22-2022 Refill Ariadna Mcdowell [facility] Comment on above: Rx Refills Start: 09-10-2022 End: 09-10-2022 ambulatory Devon Moreira Other [employer] Other Start: 09-10-2022 Sbsq nursing facil c are/day new problem 25 min [facility] Start: 09-09-2022 End: 09-09-2022 ambulatory [facility] Start: 08-06-2022 End: 08-06-2022 ambulatory Devon Moreira Other [employer] Other Start: 08-06-2022 Sbsq nursing facil c are/day new problem 25 min [facility] Start: 07-22-2022 End: 07-22-2022 ambulatory Devon Moreira Other [employer] Other Start: 07-22-2022 Telephone encounter Devon Moreira MAYRA [facility] Start: 07-20-2022 End: 07-20-2022 ambulatory Sadia Aguilar Facility:[facility] Start: 07-20-2022 End: 07-20-2022 ambulatory DO Devon Moreira Work Phone: [facility] Work Phone: Start: 07-20-2022 End: 07-20-2022 Discharged Recurring DO Devon Moreira Work Phone: [facility] Work Phone: Start: 07-13-2022 End: 07-13-[address] DEVON MOREIRA Facility:[facility] Start: 07-10-2022 End: 07-10-[address] DEVON MOREIRA Facility:[facility] Start: 07-03-2022 End: 07-03-[address] DEVON MOREIRA Facility:[facility] Start: 06-26-2022 End: 06-26-[address] DEVON MOREIRA Facility:[facility] Start: 06-26-2022 End: 06-26-[address] DEVON MOREIRA Facility:[facility] Start: 06-25-2022 End: 06-25-2022 ambulatory Devon Moreira Other [employer] Other Start: 06-25-2022 Sbsq nursing facil c are/day minor complj 15 min Devon Moreira [facility] Start: 06-19-2022 End: 06-19-[address] DEVON MOREIRA Facility:[facility] Start: 06-15-2022 End: 07-15-2022 ambulatory SHAIKH Kate MURRAY Facility:[facility] Start: 06-12-2022 End: 06-12-[address] DOCTOR WALSH Facility:[facility] Start: 06-05-2022 Sbsq nursing facil c are/day new problem 25 min [facility] Start: 06-05-2022 End: 06-05-[address] DEVON MOREIRA [facility] [employer] Other Start: 05-29-2022 End: 05-29-[address] DEVON MOREIRA Facility:[facility] Start: 05-22-2022 End: 05-22-[address] DEVON MOREIRA Facility:[facility] Start: 05-20-2022 End: 05-20-[address] DEVON MOREIRA Facility:[facility] Start: 05-18-2022 End: 06-12-2022 ambulatory SHAIKH Kate MURRAY Facility:[facility] Start: 05-15-2022 End: 05-15-[address] DEVON MOREIRA Facility:[facility] Start: 05-13-2022 End: 05-13-2022 ambulatory Van Olivarez DIRECTOR CLINICAL APPLICATIONS.FLOOR TECH Work Phone: [facility] Comment on above: results Start: 05-13-2022 E-mail encounter fro m caregiver Van Olivarez DIRECTOR CLINICAL APPLICATIONS.FLOOR TECH Work Phone: [facility] Start: 05-08-2022 End: 05-08-[address] DEVON MOREIRA Facility:[facility] Start: 05-07-2022 End: 05-07-2022 ambulatory Devon Moreira Other [employer] Other Start: 05-07-2022 [facility] nursing facil c are/day new problem 25 min Devon Moreira [facility] Start: 05-06-2022 End: 05-06-2022 ambulatory [...] MOREIRA Facility:[facility]1 Start: 04-02-2022 ambulatory Van cortes DIRECTOR CLINICAL APPLICATIONS.FLOOR TECH Work Phone: [facility] Start: 04-01-2022 End: 04-01-[address] DEVON MOREIRA Facility:[facility] Start: 03-22-2022 Anne Pike MD Work Phone: [facility] Comment on above: Med Change Request Start: 03-21-2022 ambulatory DIAMOND H FAWWAD Facilit y:H1 Start: 03-11-2022 End: 03-11-[address] DEVON MOREIRA Facility:[facility]1 Start: 03-10-2022 End: 03-10-2022 ambulatory MIL[facility]RO [facility] Start: 02-27-2022 Refill Samira Serna [facility] Comment on above: Rx Refills Start: 02-26-2022 End: 02-26-2022 ambulatory DEVON MOREIRA Facility:[facility] Start: 02-26-2022 End: 02-26-2022 Patient encounter [...] Start: 02-05-2022 End: 02-06-2022 ambulatory ARTUR CHEN Facility:[facility] Start: 02-05-2022 End: 02-05-2022 Patient encounter procedure [facility] Work Phone: [facility] Comment on above: Kidney replaced by t ransplant (Primary Dx); 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; skilled nursing current use of immunosuppressive drug Start: 01-26-2022 End: 01-26-[address] DEVON MOREIRA Facility:[facility]1 Start: 01-20-2022 Telephone encounter Van Olivarez APRN.FLOOR TECH Work Phone: Kidney Medicine [facility] Comment on above: Results Start: 01-19-2022 End: 01-19-[address] DEVON MOREIRA Facility:[facility]1 Start: 01-16-2022 ambulatory SHAIKH Kate MURRAY Facilit y:H1 Start: 01-12-2022 End: 01-12-2022 Subsequent hospital visit by physician Alissa Chavira APRN.FLOOR TECH Work Phone: Angio Comment on above: ILIANA (acute kidney in jury) ([facility]) [N17.9] Start: 12-30-2021 End: 12-30-2021 ambulatory Paresh Fonseca MD Work Phone: Infectious Disease Comment on above: MRSA bacteremia (Arabella munira Dx); Diabetic foot ulcer with osteomyelitis (HCC) Start: 12-30-2021 End: 12-30-2021 Telemedicine consultation with patient Paresh Fonseca MD Work Phone: [facility] Start: 12-29-2021 End: 12-29-[address] EDVON MORIERA Facility:[facility]1 Start: 12-25-2021 End: 12-26-[address] [...] Start: 12-08-2021 Orders Only Artur Burger charles DIRECTOR CLINICAL APPLICATIONS.FLOOR TECH Work Phone: [facility] Comment on above: Kidney replaced by t ransplant (Primary Dx) Start: 12-07-2021 ambulatory Paresh Fonseca MD Work Phone: [facility] Comment on above: CoPat Start (copat s top 12/27/21) Start: 12-05-2021 Telephone encounter Paresh Fonseca MD Work Phone: Infectious Disease Comment on above: Patient Update (evus held discussion/) Start: 12-01-2021 Follow-up encounter [facility] Provider [facility] Start: 12-01-2021 Patient encounter procedure [facility] Prov ider [facility] Department Start: 11-23-2021 End: 11-28-2021 Evaluation [...] management encounter Start: 11-14-2021 End: 11-15-2021 ambulatory [facility] Facility:H1 Start: 10-24-2021 End: 11-15-2021 ambulatory DIAMOND Kate WHEAT Facility:H1 Start: 10-22-2021 End: 10-23-2021 ambulatory [facility] Facility:H1 Start: 10-06-2021 ambulatory Van cortes DIRECTOR CLINICAL APPLICATIONS.FLOOR TECH Work Phone: [facility] Start: 09-30-2021 Refill Asia Pike MD Work Phone: [facility] Comment on above: Refill Request Start: 09-19-2021 End: 09-24-2021 Evaluation and management of inpatient DR PROSPER LEES Facility:H1 Start: 09-18-2021 End: 09-19-[address] DEVON MOREIRA Facility:[facility]1 Start: 07-11-2021 Refill Asia Pike MD Work Phone: [facility] Comment on above: Refill Request Start: 06-05-2021 Telephone encounter Van Kuldeep Olivarez DIRECTOR CLINICAL APPLICATIONS.FLOOR TECH Work Phone: [facility] Comment on above: Results Start: 02-05-2021 End: 02-13-2021 ambulatory UNKNOWN PROVIDER Facility:[facility] Procedures Date Procedure Procedure Detail Performing Clinician Start: 03-18-2023 Hemoglobin glycosyla rk a1c Ni Cabrera DO Work Phone: Start: 02-05-2022 Creatinine other source Asia Pike MD Work Phone: Start: 02-05-2022 Urnls dip stick/tabl et rgnt auto w/o microscopy Asia Pike MD Work Phone: Start: 01-12-2022 Prothrombin time Alissa Chavira DIRECTOR CLINICAL APPLICATIONS.FLOOR TECH Work Phone: Start: 12-01-2021 PACEMAKER CLINIC CHECK [facility] Provider Start: 11-29-2021 Microscopic examinat ion of blood, culture DR PROSPER LEES Comment on above: Performed By: #### B [id number] ####[facility] [address] [place] [address]DrSkylar Leal Start: 11-27-2021 Insertion of Infusio n [...] renal transplant KIDNEY TRANSPLANT STATUS Van Olivarez DIRECTOR CLINICAL APPLICATIONS.FLOOR TECH Work Phone: History of renal transplant Kidney replaced by transplant Artur Leesjasvir DIRECTOR CLINICAL APPLICATIONS.FLOOR TECH Work Phone: History of renal transplant Kidney replaced by transplant [facility] Work Phone: History of renal transplant Devon Lillie Other History of renal transplant Kidney replaced by transplant Asia Pike MD Work Phone: Plan of Treatment Date Care Activity Detail Author Start: 06-17-2023 End: 06-17-2023 Patient encounter procedure 06/17/2023 2:15 PM EDT Office Visit [facility] [address] [place] [id number] Ni Cabrera DO [address] [place] [address] [facility] [address] Start: 06-16-2023 Hemoglobin A1c measurement Diabetes: Hemoglobin A1C [facility] Start: 02-26-2023 BP CONTROLLED (<130/80) BP CONTROLLE D (<130/80) [facility] Start: 02-05-2023 BP CONTROLLED (<130/80) BP CONTROLLE D (<130/80) [facility] Start: 01-12-2023 BP CONTROLLED (<130/80) BP CONTROLLE D (<130/80) [facility] Start: 11-17-2022 BP CONTROLLED (<130/80) BP CONTROLLE D (<130/80) [facility] Start: 10-16-2022 Influenza vaccination C [facility] Start: 05-15-2022 Medicare Annual Wellness (AWV) Medicare Annual Wellness (AWV) [facility] Start: 04-08-2022 BP CONTROLLED (<130/80) BP CONTROLLE D (<130/80) [facility] Start: 02-15-2022 ADVANCE DIRECTIVE DISCUSSION ADVANCE DIRECTIVE DISCUSSION [facility] Start: 02-15-2022 DEPRESSION ASSESSMENT DEPRESSION ASS ESSMENT [facility] Start: 02-05-2022 COVID-19 VACCINE (5 - Yung risk series) COVID-19 VACCINE (5 - Yung risk series) [facility] Start: 11-27-2021 COVID-19 VACCINE (4 - Booster for Yung series) COVID-19 VACCINE (4 - Booster for Yung series) [facility] Start: 11-04-2021 Hemoglobin A1c/Hemoglobin.total in Blood HBA1C [facility] Start: 10-16-2021 [facility] Start: 03-26-2021 COVID-19 VACCINE (3 - Yung risk 3-dose series) COVID-19 VACCINE (3 - Yung risk 3-dose series) [facility] Start: 03-26-2021 COVID-19 VACCINE (3 - Yung risk series) COVID-19 VACCINE (3 - Yung risk series) [facility] Start: 02-15-2021 ADVANCE DIRECTIVE DISCUSSION ADVANCE DIRECTIVE DISCUSSION [facility] Start: 02-15-2021 DEPRESSION ASSESSMENT DEPRESSION ASS ESSMENT [facility] Start: 01-05-2016 Hepatitis B screening URINE AL BUMIN:CREATININE RATIO [facility] Start: 07-31-2015 Pneumococcal Vaccine : 65+ Years (3 - PCV) Pneumococcal Vaccine: 65+ Years (3 - PCV) [facility] Start: 04-06-2015 Hemoglobin A1c/Hemoglobin.total in Blood HBA1C [facility] Start: 11-22-2010 Hepatitis B surface antibody level LDL CHOLESTEROL [facility] Start: 2009 ADULT PREVNAR-13 ADULT PREVNAR-[address] [facility] Start: 2009 PNEUMOVAX AGE 65 AND OVER WITH 5YR LOOKBACK (#1) PNEUMOVAX AGE 65 AND OVER WITH 5YR LOOKBACK (#1) [facility] Start: 1994 SHINGRIX VACCINE (1 of 2) SHINGRIX VACCINE (1 of 2) [facility] Start: 10-18-1963 HEPATITIS A (1 of 2 - Risk 2-dose series) HEPATITIS A (1 of 2 - Risk 2-dose series) [facility] Start: 10-18-1963 Hepatitis A Vaccine (1 of 2 - Risk 2-dose series) Hepatitis A Vaccine (1 of 2 - Risk 2-dose series) [facility] Start: 10-18-1963 SHINGRIX VACCINE (1 of 2) SHINGRIX VACCINE (1 of 2) [facility] Start: 10-18-1963 Urine microalbumin profile [facility] Start: 1962 ANNUAL PCP TEAM PHYSIOTHERAPY ASSISTANT MATTHEW DISEASE VISIT ANNUAL PCP TEAM CHRONIC DISEASE VISIT [facility] Start: 1956 Adult depression screening assessment DEPRESSION SCREENING [facility] Start: 1954 3 comp foot exam completed DIABETIC FOOT EXAM [facility] Start: 1954 Glaucoma screening Diabetes: R etinopathy Screening [facility] Start: 1954 Hepatitis C antibody , confirmatory test DILATED RETINAL EXAM [facility] Start: 1950 Pneumococcal Vaccine : 65+ (1 - PCV) Pneumococcal Vaccine: 65+ (1 - PCV) [facility] Start: 1950 PNEUMOCOCCAL: 65+ (1 - PCV) PNEUMOCOCCAL: 65+ (1 - PCV) [facility] Start: 1945 HEPATITIS A (1 of 2 - Risk 2-dose series) HEPATITIS A (1 of 2 - Risk 2-dose series) [facility] URINALYSIS, REFLEX MICROSCOPIC URINALYSIS, REFLEX MICROSCOPIC Lab Routine Screening for genitourinary condition Ordered: 10/06/2021 [facility] Work Phone: Comment on above: Ordered: 10/06/2021 URINALYSIS, REFLEX MICROSCOPIC URINALYSIS, REFLEX MICROSCOPIC Lab Routine Screening for genitourinary condition Ordered: 04/02/2022 [facility] Work Phone: Comment on above: Ordered: 04/02/2022 End: 11-17-2022 US LEG ARTERIAL PERIPH UNL VAS LAB US LEG ARTERIAL PERIPH UNL VAS LAB Vascular Lab Routine PAD (peripheral artery disease) (HCC) Nonhealing ulcer of heel (HCC) 1 Occurrences starting 11/17/2021 until 11/17/2022 [facility] Work Phone: Comment on above: 1 Occurrences starti ng 11/17/2021 until 11/17/2022 End: 11-17-2022 US LEG VEIN DVT UNL VAS LAB US LEG VEIN DVT UNL VAS LAB Vascular Lab Routine Acute deep vein thrombosis (DVT) of proximal end of right lower extremity (HCC) 1 Occurrences starting 11/17/2021 until 11/17/2022 [facility] Work Phone: Comment on above: 1 Occurrences starti ng 11/17/2021 until 11/17/2022 [facility] BROTHERS CT & VAS BROTHERS CT & VAS [facility] Immunizations Immunization Date Immunization Notes Care Provider Fa cili 12-11-2021 COVID-19 booster vaccine, age 12+ yr, bivalent (PFIZER-BIONTECH) Paresh Fonseca MD Work Phone: [facility] 12-11-2021 influenza, high-dose , quadrivalent vaccine (FLUZONE HIGH DOSE QUADRIVALENT) Paresh Fonseca MD Work Phone: [facility] 12-11-2021 influenza virus vaccine, unspecified formulation Ariadna Mcdowell Phu [facility] 10-24-2021 influenza, high dose seasonal, preservative-free Ni Petznick DO Work Phone: [facility] 01-19-2019 influenza, high dose seasonal, preservative-free Ni Petznick DO Work Phone: [facility] 11-25-2017 Seasonal trivalent influenza vaccine, adjuvanted, preservative free Ni Petznick DO Work Phone: [facility] 11-05-2016 influenza, high dose seasonal, preservative-free Ni Petznick DO Work Phone: [facility] 07-30-2014 pneumococcal polysaccharide vaccine, 23 valent Ni Petznick DO Work Phone: [facility] 03-09-2011 influenza virus vaccine, unspecified formulation Van Olivarez APRN.FLOOR TECH Work Phone: [facility] 12-17-2007 influenza virus vaccine, unspecified formulation Van Olivarez APRN.FLOOR TECH Work Phone: [facility] Work Phone: 02-11-2006 influenza virus vaccine, unspecified formulation Van Olivarez APRN.FLOOR TECH Work Phone: [facility] Work Phone: 12-07-2003 influenza virus vaccine, unspecified formulation Van Olivarez APRN.[employer] Work Phone: [facility] Work Phone: 12-07-2003 pneumococcal polysaccharide vaccine, 23 valent Van Olivarez APRN.[facility] [employer] [facility] [employer] Work Phone: [facility] Work Phone: NEGATED: Highlighted row has not occurred!12-10-2021 COVID-19 booster vaccine, age 12+ yr, bivalent ([employer]) Paresh Fonseca MD Work Phone: [facility] NEGATED: Highlighted row has not occurred!12-10-2021 influenza, high-dose, quadrivalent vaccine (FLUZONE HIGH DOSE QUADRIVALENT) Paresh Fonseca MD Work Phone: [facility] Payers Date Payer Category Payer Medicare MEDICARE MEDICAR E A AND B [id number] 2009-Present [phone] [address] [address] [place] [address] Medicare [id number] 2009 Medicare [id number] [id number] .[id number] 2009 Unknown [employer] [employer] [place] MEDICARE SUPPLEMENT [id number] 2009-Present [phone] [address] [place] [address] Indemnity [id number] .[id number] 2009 Unknown [id number]. 1.13.159.2.7.3 .067686.315 2009 Unknown [id number] 2.16.8 40.1.396188.19 2009 Unknown [id number] 1959 Medicare [id number] 1959 Self-pay 1944 Unknown [id number] 2.16.840.1.352188.3.579.2.732 1944 Unknown [id number] 2.16.840.1.865111.3.579.2.593 1944 Unknown [id number] 2.16.840.1.101289.3.579.2.593 1944 Unknown [id number] 2.16.840.1.368840.3.579.2.593 1944 Unknown [id number] 2.16.840.1.032647.3.579.2.593 1944 Unknown [id number] 2.16.840.1.934502.3.579.2.593 1944 Unknown [id number] 2.16.840.1.420914.3.579.2.593 1944 Unknown [id number] 2.16.840.1.617260.3.579.2.593 1944 Unknown [id number] 2.16.840.1.360365.3.579.2.593 1944 Unknown [id number] 2.16.840.1.474495.3.579.2.593 1944 Unknown [id number] 2.16.840.1.991393.3.579.2.593 1944 Unknown [id number] 2.16.840.1.208509.3.579.2.593 1944 Unknown [id number] 2.16.840.1.399459.3.579.2.593 1944 Unknown [id number] 2.16.840.1.271521.3.579.2.593 1944 Unknown [id number] 2.16.840.1.839190.3.579.2.593 1944 Unknown [id number] 2.16.840.1.442211.3.579.2.593 1944 Unknown [id number] 2.16.840.1.276290.3.579.2.593 1944 Unknown [id number] 2.16.840.1.033103.3.579.2.593 1944 Unknown [id number] 2.16.840.1.951565.3.579.2.593 1944 Unknown [id number] 2.16.840.1.667863.3.579.2.593 1944 Unknown [id number] 2.16.840.1.981213.3.579.2.593 1944 Unknown [id number] 2.16.840.1.999950.3.579.2.593 1944 Unknown [id number] 2.16.840.1.100313.3.579.2.593 1944 Unknown [id number] 2.16.840.1.891667.3.579.2.593 1944 Unknown [id number] 2.16.840.1.328860.3.579.2.593 1944 Unknown [id number] 2.16.840.1.626865.3.579.2.593 1944 Unknown [id number] 2.16.840.1.219301.3.579.2.593 1944 Unknown [id number] 2.16.840.1.782946.3.579.2.593 1944 Unknown [id number] 2.16.840.1.238257.3.579.2.593 1944 Unknown [id number] 2.16.840.1.509941.3.579.2.593 1944 Unknown [id number] 2.16.840.1.686470.3.579.2.593 1944 Unknown [id number] 2.16.840.1.562094.3.579.2.593 1944 Unknown [id number] 2.16.840.1.931794.3.579.2.593 1944 Unknown [id number] 2.16.840.1.395317.3.579.2.593 1944 Unknown [id number] 2.16.840.1.567570.3.579.2.593 1944 Unknown [id number] 2.16.840.1.802624.3.579.2.593 1944 Unknown [id number] 2.16.840.1.351235.3.579.2.593 1944 Unknown [id number] 2.16.840.1.228708.3.579.2.593 1944 Unknown [id number] 2.16.840.1.678682.3.579.2.593 1944 Unknown [id number] 2.16.840.1.874461.3.579.2.593 1944 Unknown [id number] 2.16.840.1.653413.3.579.2.593 1944 Unknown [id number] 2.16.840.1.834441.3.579.2.593 1944 Unknown [id number] 2.16.840.1.012641.3.579.2.593 1944 Unknown [id number] 2.16.840.1.229280.3.579.2.593 1944 Unknown [id number] 2.16.840.1.979813.3.579.2.593 1944 Unknown [id number] 2.16.840.1.867220.3.579.2.593 1944 Unknown [id number] 2.16.840.1.147158.3.579.2.593 1944 Unknown [id number] 2.16.840.1.361876.3.579.2.125 9 Medicare Medicare Outpatient [id number] 2T [id number] Unknown [id number] 2.16.840.1.731828.3.579.2.593 Unknown [id number] 2.16.840.1.161132.3.579.2.593 Unknown [id number] 2.16.840.1.714817.3.579.2.531 Social History Date Type Detail Facility Start: 03-09-2011 End: 07-07-2022 Tobacco smoking status NHIS Ex-smoker [facility] Work Phone: End: 02-15-1975 History of tobacco use Current smoker [facility] Work Phone: End: 02-15-1975 History of tobacco use Cigarette Smoker [facility] Work Phone: Start: 04-08-2021 End: 02-26-2022 Alcohol intake Current drinker of alcohol (finding) [facility] Start: 1945 Sex Assigned At Not on file [facility] Start: 03-09-2011 End: 10-20-2022 Cigarettes smoked current (pack per day) - Reported 1 [facility] Work Phone: Start: 03-09-2011 End: 02-26-2022 Tobacco use and exposure Smokeless tobacco non-user [facility] Start: 09-25-2021 History SDOH Financial 5 [facility] Start: 09-25-2021 History SDOH Food Worry 1 [facility] Start: 09-25-2021 History SDOH Transpo rt Med 2 [facility] Start: 09-14-2021 End: 01-12-2022 Exposure to SARS-CoV-2 (event) Not sure [facility] Start: 02-26-2022 End: 10-20-2022 Sex Assigned At [facility] Work Phone: Start: 1945 Sex Assigned At Male F [facility] How hard is it for y ou to pay for the very basics like food, housing, medical care, and heating Not hard at all [facility] Work Phone: (I/We) worried shiloh er (my/our) food would run out before (I/we) got money to buy more. Never true [facility] Work Phone: In the past 12 month s, was there a time when you were not able to pay the mortgage or rent on time? No [facility] Work Phone: Start: 03-18-2023 Alcohol intake Ex-drinker (finding) [facility] How often to you hav e a drink containing alcohol? 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 The initial diagnosis of diabetes was made in 1976 Diabetes complications: neuropathy, cardiovascular disease, peripheral vascular disease, amputation, and non healing ulcers He has been checking his blood glucose with a [employer] shaan 14 CGM - READER- on a [...] office. He is being transported by a seasonal delivery driver. 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 documented in this encounter [facility] 01-14-2023 Evaluation note Encounter Date Diagnosis [...] are maintaining regular scheduled appts with their block splitter operator. No bleeding complications Dec, Hyperlipidemia LDL [...] fluid balance and to avoid dehydration. Dec, skilled nursing (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 of insulin (ICD-10 - Z79.4) [employer] Other 10-26-2023 Evaluation note* Encounter Date Diagnosis Assessment Notes Treatment Notes Treatment Clinical Notes Nov, Longstanding persistent atrial fibrillation (ICD-10 - I48.11) This patient is in NSR or rate controlled. This patient is anticoagulated to prevent thromboembolic events. They are maintaining regular scheduled appts with their block splitter operator. 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 No bleeding complications Oct, Type 1 [...] - Z94.0) Continue routine surveillance labs. 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 DX Code Needed. 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 No bleeding complications Sep, Type 1 [...] risk for cerebrovascular and cardiovascular disease. Sep, skilled nursing (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 of insulin (ICD-10 - Z79.4) Sep, Kidney transplant status (ICD-10 - Z94.0) f/u transplant clinic Continue surveillance labs [employer] Other 08-08-2023 Miscellaneous Notes* Telephone Encounter - Ariadna Mcdowell Tech - 09/22/2022 8:58 AM EDT Pharmacy requesting refills as follows: Requested Prescriptions Pending Prescriptions Disp Refills tacrolimus IR (PROGRAF) 1 mg capsule Sig: Take 1 capsule by mouth DAILY AT 6 PM. Please review and advise. Ariadna Mcdowell, [facility] note* Encounter Date Diagnosis Assessment Notes Treatment Notes Treatment Clinical Notes Aug, Longstanding persistent atrial fibrillation (ICD-10 - I48.11) This patient is in NSR or rate controlled. This patient is anticoagulated to prevent thromboembolic events. They are maintaining regular scheduled appts with their block splitter operator. No s/s bleeding Aug, Type 1 [...] risk for cerebrovascular and cardiovascular disease. Aug, skilled nursing (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 of insulin (ICD-10 - Z79.4) Aug, Kidney transplant status (ICD-10 - Z94.0) Continue close surveillance w/ labs [employer] Other 07-26-2023 NotePatient here for 1.5 year follow up and device check. Lightheaded in the office today, as BP is very low. He denies chest pain, SOB, palpitations, and bleeding on warfarin. Had routine labs last week. Review of Systems Musculoskeletal: Positive for arthritis, joint pain and myalgias. Neurological: Positive for light-headedness. All other systems reviewed and are negative.[facility] 09-09-2022 NoteUT Electrophysiology Consult Note [...] at about 50-60 systolic. patient with friend/ seasonal delivery driver from facility, we will take patient [...] of the right coronary artery with robust biph-lu-ufykc collaterals. 5. Normal global left ventricular systolic function by noninvasive imaging. RECOMMENDATIONS: 1. Aggressive cardiovascular risk factor modification. 2. Optimization of medical management; aspirin 81 mg lifelong, Plavix 75 mg for a minimum of 6 months preferably long-term, statin plus or minus a beta ebrt and an angiotensin-converting enzyme inhibitor as tolerated. [...] Follow up with Dr. Galvez in the [facility] in the next 2 weeks; he may follow up with Dr. Orosco as needed for interventional issues. 5. Follow up with Dr. Devon Moreira as scheduled. PMH: Past Medical History: Diagnosis Date Abnormal ECG Arrhythmia Atrial fibrillation (CMS/HCC) Chronic kidney disease Coronary artery disease Diabetes mellitus (CMS/HCC) (more content not included)...[facility]06-[facility]-2023 Evaluation note* Encounter Date Diagnosis [...] are maintaining regular scheduled appts with their block splitter operator. No bleeding complications Jul, Type 1 [...] risk for cerebrovascular and cardiovascular disease. Jul, skilled nursing (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 of insulin (ICD-10 - Z79.4) Jul, Kidney transplant status (ICD-10 - Z94.0) Monthly labs, ongoing surveillance from transplant clinic [employer] Other 05-15-2023 Progress note Author Sadia Aguilar [facility] June 29, 2022 2:47pm Note Date/Time June 29, 2022 2:46p m [facility] [address] [place] [address] Wound Center Provider Note Signed Patient: Alex Almonte MR#: [id number] : 1945 Acct:[id number] Age/Sex: 76 / M Copies to: DO Sadia Whyte APRN~ HPI Date of Visit Date of Visit: Date of Service: 06/29/2022 Time of Service: 14:45 Narrative HPI: 12/30/21 Alex is a 76 year old male presenting to [facility] wound care for aninitial visit for eval and treatment of a sacral/coccyx area pressure ulcer. He resides at [facility]. There is an GLASSWORKER present for the visit. Medicalhoney gel will [...] his brief that was cleaned by this movie writer as well as another nursing staff [...] from initial visit here Mode of Arrival/ Completions Manager: Facility vehicle Assistive Device Used Today: Wheelchair and Indra Lives with:: Care/Nursing Facility Appetite Description: Within Normal Limits Who helps w/ dressing change?: Nursing Facility Why Do You Need Help?: Can't Reach Ulcer, Limited mobility and Taxing effort to leave home Smoking Status: Former smoker [facility] Medical History (Updated 03/03/22 @ 14:41 by [...] Ulcer/Injury Staging: Unstageable Bed Appearance: Beefy Red, [place], Yellow and Rolled Edges Percent of Wound [...] By: <Electronically signed by DAVID Aguilar> 06/29/221446 [facility] Work Phone: 1(315) 413-942305-11-2023 Evaluation note* Encounter Date Diagnosis Assessment Notes [...] are maintaining regular scheduled appts with their block splitter operator. No bleeding complications June, Hyperlipidemia LDL goal <100 (ICD-10 - E78.5) Instructed on diet and exercise with continued statin therapy.Discussed the beneficial effects of lowering cholesterol in reducing the risk for cerebrovascular and cardiovascular disease. 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 (ICD-10 - Z79.4) June, Kidney transplant status (ICD-10 - Z94.0) No s/s rejection [employer] Other 04-24-2023 Progress note Author Sadia Aguilar [facility] June 08, 2022 2:10pm Note Date/Time June 08, 2022 2:1 0pm [facility] [address] [place] [address] Wound Center Provider Note Signed Patient: Alex Almonte MR#: [id number] : 1945 Acct:[id number] Age/Sex: 76 / M Copies to: DO Sadia Whyte, DAVID~ HPI Date of Visit Date of Visit: Date of Service: 06/08/2022 Time of Service: 14:07 Narrative HPI: 12/30/21 Alex is a 76 year old male presenting to [facility] wound care for aninitial visit for eval and treatment of a sacral/coccyx area pressure ulcer. He resides at [facility]. There is an GLASSWORKER present for the visit. Medicalhoney gel will [...] his brief that was cleaned by this movie writer as well as another nursing staff [...] from initial visit here Mode of Arrival/ Completions Manager: Facility vehicle Assistive Device Used Today: Wheelchair and Indra Lives with:: Care/Nursing Facility Appetite Description: Within Normal Limits Who helps w/ dressing change?: Nursing Facility Why Do You Need Help?: Can't Reach Ulcer, Limited mobility and Taxing effort to leave home Smoking Status: Former smoker [facility] Medical History (Updated 03/03/22 @ 14:41 by [...] Ulcer/Injury Staging: Unstageable Bed Appearance: Beefy Red, [place], Yellow and Rolled Edges Percent of Wound [...] <Electronically signed by DAVID Aguilar> 06/08/22 1410 [facility] Work Phone: 1(270) 443-173704-21-2023 Evaluation note* Encounter Date Diagnosis Assessment Notes [...] are maintaining regular scheduled appts with their block splitter operator. 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 No open ulcerations present Pain controlled [employer] Other 03-27-2023 Progress note Author Sadia Aguilar [facility] May 11, 2022 1:41pm Note Date/Time May 11, 2022 1:4 0pm [facility] [address] [place] [address] Wound Center Provider Note Signed Patient: Alex Almonte MR#: [id number] : 1945 Acct:[id number] Age/Sex: 76 / M Copies to: Devon Moreira,DO Sadia Aguilar, DIRECTOR CLINICAL APPLICATIONS~ HPI Date of Visit Date of Visit: Date of Service: 05/11/2022 Time of Service: 13:38 Narrative HPI: 12/30/21 Alex is a 76 year old male presenting to [facility] wound care for aninitial visit for eval and treatment of a sacral/coccyx area pressure ulcer. He resides at [facility]. There is an GLASSWORKER present for the visit. Medicalhoney gel will [...] his brief that was cleaned by this movie writer as well as another nursing staff [...] from initial visit here Mode of Arrival/ Completions Manager: Facility vehicle Assistive Device Used Today: Wheelchair and Indra Lives with:: Care/Nursing Facility Appetite Description: Within Normal Limits Who helps w/ dressing change?: Nursing Facility Why Do You Need Help?: Can't Reach Ulcer, Limited mobility and Taxing effort to leave home Smoking Status: Former smoker [facility] Medical History (Updated 03/03/22 @ 14:41 by [...] Ulcer/Injury Staging: Unstageable Bed Appearance: Beefy Red, [place] and Yellow Percent of Wound Bed Granulated/Red: [...] <Electronically signed by DAVID Aguilar> 05/11/22 134[address] [facility] Work Phone: [phone]) 442-494203-23-2023 Evaluation note* Encounter Date Diagnosis Assessment Notes [...] are maintaining regular scheduled appts with their block splitter operator. Apr, Type 1 diabetes mellitus with [...] are reviewed at the office visit Apr, skilled nursing (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 of insulin (ICD-10 - Z79.4) Apr, Kidney transplant status (ICD-10 - Z94.0) Serial labs by clinic Hydrate, tatiana ARVIZU [employer] Other 03-10-2023 NoteHNO ID: [id number] Author: Keyur Brown MD Service: ? Author Type: Physician Type: Progress Notes Filed: 04/24/2022 10:32 AM Note Text: Encounter opened in error, patient not seen.[facility]02-28-2023 Progress note Author Sadia Aguilar [facility] [place] April 14, 2022 2:19pm Note Date/Time April 14, 2022 2:18pm [facility] [address] [place] [address] Wound Center Provider Note Signed Patient: Alex Almonte MR#: [id number] : 1945 Acct:[id number] Age/Sex: 76 / M Copies to: DO Sadia Whyte, DAVID~ HPI Date of Visit Date of Visit: Date of Service: 04/14/2022 Time of Service: 14:18 Narrative HPI: 12/30/21 Alex is a 76 year old male presenting to [facility] wound care for aninitial visit for eval and treatment of a sacral/coccyx area pressure ulcer. He resides at [facility]. There is an GLASSWORKER present for the visit. Medicalhoney gel will [...] his brief that was cleaned by this movie writer as well as another nursing staff [...] from initial visit here Mode of Arrival/ Completions Manager: Facility vehicle Assistive Device Used Today: Wheelchair and Indra Lives with:: Care/Nursing Facility Appetite Description: Within Normal Limits Who helps w/ dressing change?: Nursing Facility Why Do You Need Help?: Can't Reach Ulcer, Limited mobility and Taxing effort to leave home Smoking Status: Former smoker [facility] Medical History (Updated 03/03/22 @ 14:41 by [...] Ulcer/Injury Staging: Unstageable Bed Appearance: Beefy Red, [place] and Yellow Percent of Wound Bed Granulated/Red: [...] <Electronically signed by DAVID Aguilar> 04/14/22 141 [facility] Work Phone: 1(538) 635-348902-16-2023 NotePatient Outreach (KIMBERLY) ALEX ALMONTE ([id number]) 1945 M TRN Date Time Provider Department 04/02/22 VAN OLIVAREZ During your visit today, we recorded the following information about you: Allergies As of Date: 04/02/2022 Noted Allergy Reaction PYRIDOSTIGMINE BROMIDE 08/04/2021 8 - GI Upset Date Reviewed: 02/26/2022 Reviewed by: Braden Abel MA - Fully Assessed Visit Diagnosis:Screening for genitourinary condition [Z13.89] Order(s):URINALYSIS, REFLEX MICROSCOPIC [HNF8817] Order #: [id number] Prescriptions as of 04/06/2022 - tacrolimus IR [...] by mouth daily with lunch. 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 Kellenfransicovaibhav Dunia documented in this encounterSelect Medical [facility]-07-2023 Progress note Author Sadia Aguilar [facility] [place] March 24, 2022 3:00pm Note Date/Time March 24, 2022 2 :59pm [facility] [address] [place] [address] Wound Center Provider Note Signed Patient: Alex Almonte MR#: [id number] : 1945 Acct:[id number] Age/Sex: 76 / M Copies to: Devon Moreira,DO Sadia Aguilar APRN~ HPI Date of Visit Date of Visit: Date of Service: 03/24/2022 Time of Service: 14:58 Narrative HPI: 12/30/21 Alex is a 76 year old male presenting to [facility] wound care for aninitial visit for eval and treatment of a sacral/coccyx area pressure ulcer. He resides at [facility]. There is an GLASSWORKER present for the visit. Medicalhoney gel will [...] his brief that was cleaned by this movie writer as well as another nursing staff [...] from initial visit here Mode of Arrival/ Completions Manager: Facility vehicle Assistive Device Used Today: Wheelchair and Indra Lives with:: Care/Nursing Facility Appetite Description: Within Normal Limits Who helps w/ dressing change?: Nursing Facility Why Do You Need Help?: Can't Reach Ulcer, Limited mobility and Taxing effort to leave home Smoking Status: Former smoker [facility] Medical History (Updated 03/03/22 @ 14:41 by [...] Ulcer/Injury Staging: Unstageable Bed Appearance: Beefy Red, [place] and Yellow Percent of Wound Bed Granulated/Red: [...] <Electronically signed by DAVID Aguilar> 03/24/22 [address] [facility] Work Phone: 1(627) 248-908201-17-2023 Progress note Author Sadia Aguilar [facility] [place] March 03, 2022 2:41pm Note Date/Time March 03, 2022 2 :41pm [facility] [address] [place] [address] Wound Center Provider Note Signed Patient: Alex Almonte MR#: [id number] : 1945 Acct:[id number] Age/Sex: 76 / M Copies to: DO Sadia Whyte APRN~ HPI Date of Visit Date of Visit: Date of Service: 03/03/2022 Time of Service: 14:38 Narrative HPI: 12/30/21 Alex is a 76 year old male presenting to [facility] wound care for aninitial visit for eval and treatment of a sacral/coccyx area pressure ulcer. He resides at [facility]. There is an GLASSWORKER present for the visit. Medicalhoney gel will [...] his brief that was cleaned by this movie writer as well as another nursing staff [...] from initial visit here Mode of Arrival/ Completions Manager: Facility vehicle Assistive Device Used Today: Wheelchair and Indra Lives with:: Care/Nursing Facility Appetite Description: Within Normal Limits Who helps w/ dressing change?: Nursing Facility Why Do You Need Help?: Can't Reach Ulcer, Limited mobility and Taxing effort to leave home Smoking Status: Former smoker [facility] Medical History (Updated 03/03/22 @ 14:41 by [...] Ulcer Pressure Ulcer/Injury Staging: Unstageable Bed Appearance: [place] and Yellow Percent of Wound Bed Granulated/Red: 90 Percent of Devitalized: 10 Length (cm): 2.2 Width (cm): 1.8 Depth (cm): 1.9 CM Sq: 3.960 Surrounding Tissue Appearance: [place], Hyperpigmented and Satellite lesions Surrounding Tissue Temp: [...] <Electronically signed by DAVID Aguilar> 03/03/22 1441 [facility] Work Phone: [phone]) 617-141601-13-2023 Miscellaneous Notes* Telephone Encounter - RAUL Davidson - 02/27/2022 10:24 AM EST Patient phones requesting refills as follows: Per pts sister takes 1 mg in AM and 1 mg in PM Requested Prescriptions Pending Prescriptions Disp Refills tacrolimus IR (PROGRAF) 1 mg capsule Sig: Take 2 capsules by mouth DAILY (6 AM). Please review and advise. RALU Davidson documented in this encounterSelect Medical [facility]-12-2023 NoteHNO ID: [id number] Author: Hina Peterson MD Service: ? 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 Magic Cup [place] with lunch aspirin, enteric coated (ASPIRIN, ENTERIC COATED) 81 mg EC tablet Take 1 tablet by mouth once daily. predniSONE (DELTASONE) 5 mg tablet TAKE 1 TABLET BY MOUTH EVERY DAY oxyCODONE IR (ROXICODONE) 5 mg immediate release tablet 1-2 tablets by ORAL/FEEDING TUBE route every 3 hours as needed. Food Supplement, Lactose-Free (ENSURE MAX (more content not included)... [facility]01-12-2023 History of Present illness Narrative* Hina Peterson MD - 02/26/2022 4:25 PM EST Images from the original note were not included. [facility] DEPARTMENT OF VASCULAR SURGERY OUTPATIENT VISIT DATE [...] maxwell and sutures were removed at the [facility] facility. He comes here with a lateral wound eschar. He denies any fevers, chills, or any drainage. He is on anticoagulation. 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 Patient on mycophenolate mofetil ,cellcept and prednisone Mixed hyperlipidemia due to type 2 diabetes mellitus ([facility]) 11/29/2021 Osteomyelitis ([facility]) 11/29/2021 Paroxysmal atrial fibrillation ([facility]) Renal transplant, status post SA node dysfunction ([facility]) s/p pacemaker Type 2 diabetes mellitus with diabetic neuropathy, with long-term current use of insulin ([facility]) 02/24/2002 PAST SURGICAL HISTORY Procedure [...] by mouth daily with lunch. Magic Cup [place] with lunch aspirin, enteric coated (ASPIRIN, ENTERIC [...] 2022 TIME: 4:26 PM documented in this encounterSelect Medical [facility]01-05-2023 Miscellaneous Notes* Telephone Encounter - Gwen [...] Home and cell number(Ask for Alex's nurse) [phone] Diagnosis 4 mo f/u wound check Yumiko Mcclain documented in this encounterSelect Medical [facility]01-05-2023 Miscellaneous Notes* Telephone Encounter - Augusta Medrano RN - 02/19/2022 11:11 AM EST Alex [place] nursing facility, [facility], called regarding elevated tacrolimus level (23.9). Spoke with bedside nurse, Zoe, today. Level is from last week- unable to clearly determine if medications were held prior to lab work. Reviewed with nurse morning labs should occur prior to lab draws. Patient is scheduled for repeat labs tomorrow. Will assess new level. Augusta Medrano RN documented in this encounterSelect Medical [facility]01-04-2023 Miscellaneous Notes* Telephone Encounter - Martina [...] advise. Mercedez Tavares MA documented in this encounterSelect Medical [facility]12-27-2022 Progress note Author Sadia Aguilar [facility] [place] February 10, 2022 3:47pm Note Date/Time February 10, 2022 3:47pm [facility] [address] [place] [address] Wound Center Provider Note Signed Patient: Alex Almonte MR#: [id number] : 1945 Acct:[id number] Age/Sex: 76 / M Copies to: DO Sadia Whyte, DAVID~ HPI Date of Visit Date of Visit: Date of Service: 02/10/2022 Time of Service: 15:44 Narrative HPI: 12/30/21 Alex is a 76 year old male presenting to [facility] wound care for aninitial visit for eval and treatment of a sacral/coccyx area pressure ulcer. He resides at [facility]. There is an GLASSWORKER present for the visit. Medicalhoney gel will [...] his brief that was cleaned by this movie writer as well as another nursing staff member, few weeks to follow up Subjective Pain Coccyx: Pain Description: Intermittent Pain Intensity: 0 Wound/Ulcer History When did wound start?: 4 weeks ago- from initial visit here Mode of Arrival/ Completions Manager: Facility vehicle Assistive Device Used Today: Wheelchair and Indra Lives with:: Care/Nursing Facility Appetite Description: Within Normal Limits Who helps w/ dressing change?: Nursing Facility Why Do You Need Help?: Can't Reach Ulcer, Limited mobility and Taxing effort to leave home Smoking Status: Former smoker [facility] Medical History (Updated 01/20/22 @ 14:21 by [...] Ulcer Pressure Ulcer/Injury Staging: Unstageable Bed Appearance: [place] and Yellow Percent of Wound Bed Granulated/Red: 90 Percent of Devitalized: 10 Length (cm): 2.5 Width (cm): 2.3 Depth (cm): 2.1 CM Sq: 5.750 Surrounding Tissue Appearance: [place], Hyperpigmented and Satellite lesions Surrounding Tissue Temp: [...] By: <Electronically signed by DAVID Aguilar> 02/10/227 [facility] Work Phone: 1(670) 707-899012-22-2022 NoteHNO ID: [id number] Author: Asia Pike MD Service: ? Author Type: Physician Type: Progress Notes Filed: 02/05/2022 9:38 AM Note Text: [facility] Transplant Follow up Portions of this note [...] date with medications. Patient brought paperwork from [employer] with all medications being received. Patient unsure if they have been drawing labs regularly. Last Tac from 01/19: 12.9 and K 5.9. In need of current labs. Lab orders will be sent with patient and follows as below: [facility] Standing Lab Orders [address] [place], [place] [address] February 05, 2022 Alex Almonte 1945 [id number] STANDARD TESTING: Diagnosis Codes: Z94.0 Kidney Transplant [...] AT YOUR LABORATORY FACILITY AND FAX TO [phone]. PLEASE CALL [phone]. Provider: Dr. Pike Current Outpatient Medications Medication [...] by mouth daily with lunch. Magic Cup [place] with lunch aspirin, enteric coated (ASPIRIN, ENTERIC COATED) 81 mg EC tablet Take 1 tablet by mouth once daily. atorvastatin (LIPITOR) 40 mg tablet 1 tablet by ORAL/FEEDING TUBE route daily at bedtime. (more content not included)...[facility]12-22-20[facility] History of Present illness Narrative* Asia Pike MD - 02/05/2022 8:20 AM EST Images from the original note were not included. [facility] Transplant Follow up Portions of this note [...] and snacks patient declined. Indra scale at [facility]: 166.2 lbs per patient. Bed sore on coccyx causing discomfort. Being changed regularly at SNF- reported to be smaller around but still as deep. Patient not very up to date with medications. Patient brought paperwork from [employer] with all medications being received. Patient unsure if they have been drawing labs regularly. Last Tac from 01/19: 12.9 and K 5.9. In need of current labs. Lab orders will be sent with patient and follows as below: [facility] Transplant Standing Lab Orders [address] [facility] [address] [place], [place] [address] February 05, 2022 Alex Almonte 1945 [id number] STANDARD TESTING: Diagnosis Codes: Z94.0 Kidney Transplant [...] AT YOUR LABORATORY FACILITY AND FAX TO [phone]. PLEASE CALL [phone]. Provider: Dr. Pike Current Outpatient Medications Medication [...] by mouth daily with lunch. Magic Cup [place] with lunch aspirin, enteric coated (ASPIRIN, ENTERIC [...] All other system reviews negative. Augusta Medrano respiratory clinician: February 05, 2022 9:34 AM I have [...] complexity. Asia Pike MD documented in this encounterSelect Medical [facility]12-06-2022 Progress note Author Sadia Aguilar [facility] [place] January 20, 2022 2:21pm Note Date/Time January 20, 2022 2 :21pm [facility] [address] [place] [address] Wound Center Provider Note Signed Patient: Alex Almonte MR#: [id number] : 1945 Acct:[id number] Age/Sex: 76 / M Copies to: DO Sadia Whyte APRN~ HPI Date of Visit Date of Visit: Date of Service: 01/20/2022 Time of Service: 14:17 Narrative HPI: 12/30/21 Alex is a 76 year old male presenting to [facility] wound care for aninitial visit for eval and treatment of a sacral/coccyx area pressure ulcer. He resides at [facility]. There is an GLASSWORKER present for the visit. Medicalhoney gel will [...] from initial visit here Mode of Arrival/ Completions Manager: Facility vehicle Assistive Device Used Today: Wheelchair and Indra Lives with:: Care/Nursing Facility Appetite Description: Within Normal Limits Who helps w/ dressing change?: Nursing Facility Why Do You Need Help?: Can't Reach Ulcer, Limited mobility and Taxing effort to leave home Smoking Status: Former smoker [facility] Medical History (Updated 01/20/22 @ 14:21 by [...] Ulcer Pressure Ulcer/Injury Staging: Unstageable Bed Appearance: [place] and Yellow Percent of Wound Bed Granulated/Red: 40 Percent of Devitalized: 60 Length (cm): 5.2 Width (cm): 3.4 Depth (cm): 1.8 CM Sq: 17.680 Surrounding Tissue Appearance: [place] and Hyperpigmented Surrounding Tissue Temp: Warm Drainage [...] <Electronically signed by DAVID Aguilar> 01/20/22 1421 [facility] Work Phone: 1(383) 529-348012-06-2022 Miscellaneous Notes* Telephone Encounter - Van Olivarez APRN.CNP - 01/20/2022 1:12 PM EST Labs noted from yesterday. Pt is currently residing at [facility], I spoke with the Nurse, the results has been addressed by Physician caring for pt. He had been placed on Chlor Con and this has been discontinued and hyperkalemia has been treated. Van Olivarez APRN.CNP documented in this encounterSelect Medical [facility]11-28-2022 Surgical operation note* Brief Op Note - Misbah Landis PA-C - 01/12/2022 10:41 AM EST BRIEF OPERATIVE / PROCEDURE NOTE LOG ID: [id number] SURGERY/PROCEDURE DATE: 01/12/2022 INCISION/PROCEDURE START TIME: 10:32 AM INCISION CLOSE/PROCEDURE END TIME: 10:35 AM SURGEON(S)/PROCEDURALIST(S) AND PLANNING TECHNICIAN(S): Misbah Landis PA-C SURGERY/PROCEDURE(S): Removal tunneled vascular access catheter under local anesthesia ANESTHESIA: Procedural Sedation FINDINGS: Catheter removed intact ESTIMATED BLOOD LOSS: 0 ml SPECIMENS: None COMPLICATIONS: None PRE-OP/PRE-PROCEDURE DIAGNOSIS: Foot Ulcer POST-OP/POST-PROCEDURE DIAGNOSIS: Same as Preop SIGNATURE: Misbah Landis PA-C PATIENT NAME: Alex Almonte DATE: January 12, 2022 TIME: 10:42 AM documented in this encounterSelect Medical [facility]11-22-2022 Nurse Note* Laxmi Archibald RN - 01/06/2022 1:55 PM EST Pre-procedure instructions: Contacted patient's sister, Munira Brothers and nurse at [facility], Jada ([phone]) andconfirmed appt. for Gerhard removal scheduled on 01/12/22, at [facility]. If instructions are not followed your [...] signed. Arrival at 9:30am to desk QB-1 ([facility]) and check in for your procedure. Shagger/Transportation: How will you be arriving for your procedure? Ambulance service. To be arranged by [facility]. If you develop any of the following symptoms before your procedure, please call [phone]. Chills, joint pain, rash, sore throat, cough, loss of smell, reddened eyes, vomiting, abdominal pains, diarrhea, loss of taste, severe headache, weakness, bruising or bleeding, fever, muscle pain, shortness of breath Recovery expectations: You can expect to be in recovery for 30 minutes following the procedure. Written instructions provided to patient via [employer] If you have any questions please call [phone] documented in this encounterSelect Medical [facility]11-15-2022 Progress note Author Sadia Aguilar [facility] [place] December 30, 2021 1:49pm Note Date/Time December 30, 2021 1:49pm [facility] [address] [place] [address] Wound Center Provider Note Signed Patient: Alex Almonte MR#: [id number] : 1945 Acct:[id number] Age/Sex: 76 / M Copies to: DO Sadia Whyte APRN~ HPI Date of Visit Date of Visit: Date of Service: 12/30/2021 Time of Service: 13:44 Narrative HPI: 12/30/21 Alex is a 76 year old male presenting to [facility] wound care for aninitial visit for eval and treatment of a sacral/coccyx area pressure ulcer. He resides at [facility]. There is an GLASSWORKER present for the visit. Medicalhoney gel will be use for debridement and antimicrobial purposes. He will need to offload pressure and have a well balanced diet that is somewhat higher in protein and amino acids and lower in inflammation foods. Labs were ordered to check his nutrition status. Alxe will be seen back in a few weeks. Subjective Pain Coccyx: Pain Intensity: 0 Wound/Ulcer History When did wound start?: 4 weeks ago Mode of Arrival/ Completions Manager: Facility vehicle Assistive Device Used Today: Wheelchair and Indra Lives with:: Care/Nursing Facility Appetite Description: Within Normal Limits Who helps w/ dressing change?: Nursing Facility Why Do You Need Help?: Can't Reach Ulcer, Limited mobility and Taxing effort to leave home Smoking Status: Former smoker [facility] Medical History (Updated 12/30/21 @ 13:49 by [...] 0.1 CM Sq: 38.500 Surrounding Tissue Appearance: [place] and Hyperpigmented Surrounding Tissue Temp: Warm Drainage [...] By: <Electronically signed by DAVID Aguilar> 12/30/21 38[address] [facility] Work Phone: 1(406) 966-324811-15-2022 History of Present illness Narrative* Paresh Fonseca [...] the rehab facility He is currently at [facility] in [facility] Seen on video together with Zoe -history obtained from bedside nursing. he is getting up in a chair, working with PT diet is back to regular hes doing well. 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 has scabs on the R lateral side but no wound care concerns. It continues to heal. He has a follow-up with vascular surgery later December 2021. has a sacral wound -- he has local wound care following this at [facility] WBC 6.0, creatinine -- 0.8. alt [...] by mouth daily with lunch. Magic Cup [place] with lunch aspirin, enteric coated (ASPIRIN, ENTERIC [...] is a 76 year old male from [facility]. 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 History of PAD CAD status post CABG, diabetes, atrial fibrillatioN He originally presented [facility] for having altered mental status and [...] 3. Status post right heel I&D at [facility] on 11/24/2021. 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 4. CKD - s/p gerhard placement 5. immunocompromised Status post right open above the ankle ioethcogru04/17 - Enterobacter and MRSA from cultures Gram-positive [...] will need to coordinate with his SNF [phone] --our ID office will need to arrange for IR gerhard removal. Return to ID as needed 10 Minutes spent via virtual visit. SIGNATURE: Paresh Fonseca MD PATIENT NAME: Alex Almonte DATE: December 30, 2021 TIME: 9:52 AM documented in this encounterSelect [facility]11-01-2022 Miscellaneous Notes* Telephone Encounter - Sulma Pardo - 12/16/2021 3:13 PM EDT Pt respiratory therapy manager is requesting orders for Stomp ampushield to be taken off pressure relief because it is causing sores on the thigh. Thanks, Sulma Pardo Wrist Hemmer documented in this encounterSelect [facility]10-31-2022 Miscellaneous Notes* Telephone Encounter - Gwen Alfredo Adm Asst I - 12/15/2021 4:11 PM EDT Rupa LYLES from [facility] [phone] called to report IV Vancomycin was started until today. Patient missed 3 days, should patient makeup missed doses? Please advise. Gwen Alfredo Adm Asst I documented in this encounterSelect [facility]10-21-2022 Instructions* Patient Instructions* Paresh Fonseca MD [...] serious illness Are taking any medications (prescription, lvky-lid-yjcqgfx, vitamins, or herbal products) How will I receive EVUSHELD? EVUSHELD consists of two investigational medicines, tixagevimab and cilgavimab. You will receive 1 dose of EVUSHELD, consisting of 2 separate injections (tixagevimab and cilgavimab). EVUSHELD will be given to you by your healthcare provider as 2 intramuscular injections, given one after the other. Viruses can shredding machine knife changer time (mutate) and develop into a [...] caused by certain SARS-CoV-2 variants: Viruses can shredding machine knife changer time (mutate) and develop into a [...] treatment or prevention of COVID-19 go to https://www.fda.gov/scgonvgmw-qszjaufjgyem-wun- response/llj-glxlc-rdhjntlvas-csy-wuoftz-bkukglvsi/qtqhbxnca-bws-brhxqvzxtemdv for more information. It is your choice [...] to FDA MedWatch at www.fda.gov/medwatch or call 1-637-BFR-1088 or call [employer] . Additional Information If you have questions, visit the website or call the telephone number provided below. Website Telephone number http://www.[employer] How can I learn more about COVID-19? Ask your healthcare provider. Visit https://www.cdc.gov/COVID19 Contact your local or state public health department. What is an Emergency Use Authorization? The [place] FDA has made EVUSHELD (tixagevimab co-packaged with cilgavimab) available under an emergency access mechanism called an Emergency Use Authorization EUA. The EUA is supported by a [place] of Health and Human Service ([facility]) declaration that circumstances exist to justify [...] monohydrate, polysorbate 80, sucrose, water. Distributed by: [employer], [place], [place] Manufactured for: [employer] [place], [place] [employer] 2021. All rightsreserved. documented in this encounterSelect Medical [facility] Hospital10-21-2022 Miscellaneous Notes* Telephone Encounter - Paresh Fonseca MD - 12/05/2021 3:05 PM EDT Evusheld (tixagevimab/cilgavimab) Eligibility and Patient Discussion The patient agrees to receive Evusheld (tixagevimab 300 mg and cilgavimab 300 mg) at [facility]. The patient verbalized understanding of repeating a COVID test 72 hours prior to the injections. called up patient in response to her [employer]t message today she tested covid negative on a rapid test on Wednesday this week Discussed evushed fact sheet and she agrees to proceed she will retest again today to be scheduled for Friday 12/[facility] at [facility] Paresh Fonseca MD documented in this encounterSelect Medical [facility] Hospital10-03-2022 Instructions* Patient Instructions* No Reeder DO - 11/17/2021 4:26 PM EDT -- continue coumadin -- will get vascular ultrasound for vein and artery of your right leg -- will have you see my interventional cardiology partner regarding your peripheral artery disease and if your artery disease is impairing your wound healing for the leg ulcer documented in this encounterSelect Medical [facility] Hospital10-03-2022 History of Present illness Narrative* No Reeder DO - 11/17/2021 3:53 PM EDT Images from the original note were not included. [facility] Department of Cardiovascular Medicine SECTION [...] DVT scan. Leg elevation. No Reeder DO, [facility] Vascular Medicine documented in this encounter[address]16-2022 History of Past illness Narrative* Problem Noted Date Resolved Date Altered tissue perfusion 022 documented as of this encounter (statuses as of 09/30/2021) [address]16-2022 History of Past illness Narrative* Problem Noted Date Resolved Date Altered tissue perfusion documented as of this encounter (statuses as of 10/09/2021) [address]16-2022 History of Past illness Narrative* Problem Noted Date Resolved Date Altered tissue perfusion documented as of this encounter (statuses as of 11/18/2021) [address]16-2022 History of Past illness Narrative* Problem Noted Date Resolved Date Altered tissue perfusion documented as of this encounter (statuses as of 12/01/2021) [address]16-2022 History of Past illness Narrative* Problem Noted Date Resolved Date Altered tissue perfusion documented as of this encounter (statuses as of 12/05/2021) [address]16-2022 History of Past illness Narrative* Problem Noted Date Resolved Date Altered tissue perfusion 022 documented as of this encounter (statuses as of 12/08/2021) [address]16-2022 History of Past illness Narrative* Problem Noted Date Resolved Date Altered tissue perfusion 022 documented as of this encounter (statuses as of 12/08/2021) [address]16-2022 History of Past illness Narrative* Problem Noted Date Resolved Date Altered tissue perfusion 2 022 documented as of this encounter (statuses as of 12/12/2021) [address]16-2022 History of Past illness Narrative* Problem Noted Date Resolved Date Altered tissue perfusion 09/30/2 022 documented as of this encounter (statuses as of 12/15/2021) [address]16-2022 History of Past illness Narrative* Problem Noted Date Resolved Date Altered tissue perfusion 09/30/2 022 documented as of this encounter (statuses as of 12/16/2021) [address]16-2022 History of Past illness Narrative* Problem Noted Date Resolved Date Altered tissue perfusion 08/16/2 022 documented as of this encounter (statuses as of 12/31/2021) [address]16-2022 History of Past illness Narrative* Problem Noted Date Resolved Date Altered tissue perfusion 16/2 022 documented as of this encounter (statuses as of 01/13/2022) [address]16-2022 History of Past illness Narrative* Problem Noted Date Resolved Date Altered tissue perfusion 16/2 022 documented as of this encounter (statuses as of 01/20/2022) [address]16-2022 History of Past illness Narrative* Problem Noted Date Resolved Date Altered tissue perfusion 16/2 022 documented as of this encounter (statuses as of 02/06/2022) [address]16-2022 History of Past illness Narrative* Problem Noted Date Resolved Date Altered tissue perfusion 16/2 022 documented as of this encounter (statuses as of 02/20/2022) [address]16-2022 History of Past illness Narrative* Problem Noted Date Resolved Date Altered tissue perfusion 16/2 022 documented as of this encounter (statuses as of 02/26/2022) [address]16-2022 History of Past illness Narrative* Problem Noted Date Resolved Date Altered tissue perfusion 16/2 022 documented as of this encounter (statuses as of 02/27/2022) [address]16-2022 History of Past illness Narrative* Problem Noted Date Resolved Date Altered tissue perfusion 16/2 022 documented as of this encounter (statuses as of 03/21/2022) [address]16-2022 History of Past illness Narrative* Problem Noted Date Resolved Date Altered tissue perfusion 16/2 022 documented as of this encounter (statuses as of 03/30/2022) [address]16-2022 History of Past illness Narrative* Problem Noted Date Resolved Date Altered tissue perfusion /16/2 022 documented as of this encounter (statuses as of 04/06/2022) [address]16-2022 History of Past illness Narrative* Problem Noted Date Resolved Date Altered tissue perfusion /16/2 022 documented as of this encounter (statuses as of 05/13/2022) [address]16-2022 History of Past illness Narrative* Problem Noted Date Diagnosed Date Resolved Date Altered tissue perfusion documented as of this encounter (statuses as of 2022) [facility] History of Past illness Narrative* Problem Noted Date Diagnosed Date Resolved Date Altered tissue perfusion documented as of this encounter (statuses as of 10/29/2022) [facility] Miscellaneous Notes* Telephone Encounter - Katina [...] to pharmacy. Katina Duque documented in this encounterSelect Medical [facility]health [facility] Hospital05-31-2022 Miscellaneous Notes* Telephone Encounter - Van [...] and advise. Rosibel Daniel documented in this encounterSelect Medical [facility]health [facility]04-21-2022 Miscellaneous Notes* Telephone Encounter - Van Olivarez APRN.CNP - 06/05/2021 4:46 PM EDT Spoke with pt regarding latest results, scr. at baseline. TAC level 8.6 prev two levels in 5 range.He believes latest level would be 12hr trough. No changes for now, if next level >7, can consider if reduction appropriate. He understands. Van Olivarez APRN.CNP [facility]* Diagnosis Screening for genitourinary condition Screening for other and unspecified genitourinary condition documented in this encounter [facility]* Diagnosis Acute deep vein thrombosis (DVT) of proximal end of right lower extremity ([facility])- Primary PAD (peripheral artery disease) ([facility]) Peripheral vascular disease, unspecified Nonhealing ulcer of heel ([facility]) Anticoagulation management encounter Encounter for therapeutic drug monitoring documented in this encounter [facility]* Diagnosis Encounter for prophylactic measures, unspecified- Primary documented in this encounter [facility]* Diagnosis Kidney replaced by transplant- Primary documented in this encounter [facility]* Diagnosis MRSA bacteremia- Primary Bacteremia Diabetic foot ulcer with osteomyelitis ([facility]) Type II or unspecified type diabetes mellitus with other specified manifestations, not stated as uncontrolled ILIANA (acute kidney injury) ([facility]) Acute kidney failure, unspecified documented in this encounter [facility]* Diagnosis Kidney replaced by transplant- Primary 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 skilled nursing current use of immunosuppressive drug documented in this encounter 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* Diagnosis Screening for genitourinary condition Screening for other and unspecified genitourinary condition documented in this encounter [facility]* Diagnosis Onset Date Resolution Status At high risk for skin breakdown chronic Diabetes chronic Fecal incontinence chronic Limited mobility chronic Poor appetite chronic Pressure ulcer of sacral region, unstageable chronic Candidiasis resolved [facility] Work Phone: Evaluation noteNo InformationNortCoatesville [facility] [employer] Other Evaluation note* Diagnosis Kidney replaced by transplant- Primary documented in this encounter [facility]* Diagnosis Type 1 diabetes mellitus with [...] COLONOSCOPY 1995,2001, 2014 Hospitalization History see above [employer] Other Progress note Author Sadia Aguilar [facility] July 20, 2022 1:48pm Note Date/Time July 20, 2022 1:48p m [facility] [address] [place] [address] Wound Center Provider Note Signed Patient: Alex Almonte MR#: [id number] : 1945 Acct:[id number] Age/Sex: 76 / M Copies to: DO Sadia Whyte APRN~ HPI Date of Visit Date of Visit: Date of Service: 07/20/2022 Time of Service: 13:46 Narrative HPI: 12/30/21 Alex is a 76 year old male presenting to [facility] wound care for aninitial visit for eval and treatment of a sacral/coccyx area pressure ulcer. He resides at [facility]. There is an GLASSWORKER present for the visit. Medicalhoney gel will [...] his brief that was cleaned by this movie writer as well as another nursing staff [...] from initial visit here Mode of Arrival/ Completions Manager: Facility vehicle Assistive Device Used Today: Wheelchair and Indra Lives with:: Care/Nursing Facility Appetite Description: Within Normal Limits Who helps w/ dressing change?: Nursing Facility Why Do You Need Help?: Can't Reach Ulcer, Limited mobility and Taxing effort to leave home Smoking Status: Former smoker [facility] Medical History (Updated 03/03/22 @ 14:41 by [...] <Electronically signed by DAVID Aguilar> 07/20/22 1348 [facility] Work Phone: Reason for referral (narrative)* Outpatient Procedure (Routine) - Authorized Specialty Diagnoses / Procedures Referred By Contac t Referred To Contact [facility] [place] Diagnoses PAD (peripheral artery disease) (HCC) Nonhealing ulcer of heel (HCC) Procedures US LEG ARTERIAL PERIPH UNL VAS LAB DUP-SCAN LXTR ART/ARTL BPGS UNI/LMTD STUDY No Reeder DO [address] [place] [address] [facility] [place] [address] Referral ID Status Reason Start Date Expiration Date Visits Requested Visits Authorized [id number] Authorized Auto-Generat ed Referral 11/17/2021 11/17/2022 1 1 * Outpatient Procedure (Routine) - Authorized Specialty Diagnoses / Procedures Referred By Contac t Referred To Contact [facility] Diagnoses Acute deep vein thrombosis (DVT) of proximal end of right lower extremity (HCC) Procedures US LEG VEIN DVT UNL VAS LAB DUP-SCAN XTR VEINS UNILATERAL/LIMITED STUDY No Reeder DO [address] [place] [address] [place] [address] Referral ID Status Reason Start Date Expiration Date Visits Requested Visits Authorized [id number] Authorized Auto-Generat ed Referral 11/17/2021 11/17/2022 1 1 * Consult, Test, Treat (Routine) - Authorized Specialty Diagnoses / Procedures Referred By Contac t Referred To Contact Cardiology Diagnoses PAD (peripheral artery disease) (HCC) Nonhealing ulcer of heel (HCC) Procedures CONSULT TO CARDIOLOGY OFFICE/OUTPATIENT [facility] HIGH MDM 60-74 MINUTES Savanah Marcelo MD [address] [place] [address] Referral ID Status Reason Start Date Expiration Date Visits Requested Visits Authorized [id number] Authorized PCP Requested Referral 11/17/2021 11/17/2022 1 1 [facility] Summary Purpose Family History No Family History Records Found Relationship Condition Age at Onset Recorded Date/T kartik father Aneurysm Unknown father Parkinson's disease Unknown Advance Directives No Advanced Directives Records FoundDocuments on File Type Date Recorded Patient 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 Exceptionalities 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 Expl anation Advance Directive(s) Latest Code Status [...] Maker Relationship: M ajority of Adult Siblings (passenger representative) DNR-CCA 09/26/2021 11:56 AM 10/01/2021 2:18 [...] Decision Maker Relationship: Majority of Adult Siblings (passenger representative) Code Status History Code Status Date [...] Reason for Visit Chief Complaint Open Wound ([facility]) Reason for Visit At high [...] and content) DATE CREATED AUTHOR 02/20/2021 [employer] DATE CREATED AUTHOR AUTHOR'S ORGANIZ ATION 07/25/2022 [facility] DATE CREATED AUTHOR AUTHOR'S ORGANIZ ATION 08/16/2022 [facility] DATE CREATED AUTHOR AUTHOR'S ORGANIZ ATION 09/17/2022 [facility] DATE CREATED AUTHOR AUTHOR'S ORGANIZ ATION 01/14/2023 [facility] DATE CREATED AUTHOR AUTHOR'S ORGANLUPE ATION 03/20/2023 [facility] EP[employer] Source Comments (unrecognize d section and content) In the event this informatio n is protected by the Federal Confidentiality of Alcohol and Drug Abuse Patient Records regulations: The Federal rules restrict any use of the information to criminally investigate or prosecute any alcohol or drug abuse patient.[facility] HospitalIn the event this information is protected by the Federal Confidentiality of Alcohol and Drug Abuse Patient Records regulations: The Federal rules restrict any use of the information to criminally investigate or prosecute any alcohol or drug abuse patient.[facility] HospitalIn the event this information is protected by the Federal Confidentiality of Alcohol and Drug Abuse Patient Records regulations: The Federal rules restrict any use of the information to criminally investigate or prosecute any alcohol or drug abuse patient.[facility] HospitalIn the event this information is protected by the Federal Confidentiality of Alcohol and Drug Abuse Patient Records regulations: The Federal rules restrict any use of the information to criminally investigate or prosecute any alcohol or drug abuse patient.[facility] HospitalIn the event this information is protected by the Federal Confidentiality of Alcohol and Drug Abuse Patient Records regulations: The Federal rules restrict any use of the information to criminally investigate or prosecute any alcohol or drug abuse patient.[facility] HospitalIn the event this information is protected by the Federal Confidentiality of Alcohol and Drug Abuse Patient Records regulations: The Federal rules restrict any use of the information to criminally investigate or prosecute any alcohol or drug abuse patient.[facility] HospitalIn the event this information is protected by the Federal Confidentiality of Alcohol and Drug Abuse Patient Records regulations: The Federal rules restrict any use of the information to criminally investigate or prosecute any alcohol or drug abuse patient.[facility] HospitalIn the event this information is protected by the Federal Confidentiality of Alcohol and Drug Abuse Patient Records regulations: The Federal rules restrict any use of the information to criminally investigate or prosecute any alcohol or drug abuse patient.[facility] HospitalIn the event this information is protected by the Federal Confidentiality of Alcohol and Drug Abuse Patient Records regulations: The Federal rules restrict any use of the information to criminally investigate or prosecute any alcohol or drug abuse patient.[facility] HospitalIn the event this information is protected by the Federal Confidentiality of Alcohol and Drug Abuse Patient Records regulations: The Federal rules restrict any use of the information to criminally investigate or prosecute any alcohol or drug abuse patient.[facility] HospitalIn the event this information is protected by the Federal Confidentiality of Alcohol and Drug Abuse Patient Records regulations: The Federal rules restrict any use of the information to criminally investigate or prosecute any alcohol or drug abuse patient.[facility] HospitalIn the event this information is protected by the Federal Confidentiality of Alcohol and Drug Abuse Patient Records regulations: The Federal rules restrict any use of the information to criminally investigate or prosecute any alcohol or drug abuse patient.[facility] HospitalIn the event this information is protected by the Federal Confidentiality of Alcohol and Drug Abuse Patient Records regulations: The Federal rules restrict any use of the information to criminally investigate or prosecute any alcohol or drug abuse patient.[facility] HospitalIn the event this information is protected by the Federal Confidentiality of Alcohol and Drug Abuse Patient Records regulations: The Federal rules restrict any use of the information to criminally investigate or prosecute any alcohol or drug abuse patient.[facility] HospitalIn the event this information is protected by the Federal Confidentiality of Alcohol and Drug Abuse Patient Records regulations: The Federal rules restrict any use of the information to criminally investigate or prosecute any alcohol or drug abuse patient.[facility] HospitalIn the event this information is protected by the Federal Confidentiality of Alcohol and Drug Abuse Patient Records regulations: The Federal rules restrict any use of the information to criminally investigate or prosecute any alcohol or drug abuse patient.[facility] HospitalIn the event this information is protected by the Federal Confidentiality of Alcohol and Drug Abuse Patient Records regulations: The Federal rules restrict any use of the information to criminally investigate or prosecute any alcohol or drug abuse patient.[facility] HospitalIn the event this information is protected by the Federal Confidentiality of Alcohol and Drug Abuse Patient Records regulations: The Federal rules restrict any use of the information to criminally investigate or prosecute any alcohol or drug abuse patient.[facility] HospitalIn the event this information is protected by the Federal Confidentiality of Alcohol and Drug Abuse Patient Records regulations: The Federal rules restrict any use of the information to criminally investigate or prosecute any alcohol or drug abuse patient.[facility] HospitalIn the event this information is protected by the Federal Confidentiality of Alcohol and Drug Abuse Patient Records regulations: The Federal rules restrict any use of the information to criminally investigate or prosecute any alcohol or drug abuse patient.[facility] HospitalIn the event this information is protected by the Federal Confidentiality of Alcohol and Drug Abuse Patient Records regulations: The Federal rules restrict any use of the information to criminally investigate or prosecute any alcohol or drug abuse patient.[facility] HospitalIn the event this information is protected by the Federal Confidentiality of Alcohol and Drug Abuse Patient Records regulations: The Federal rules restrict any use of the information to criminally investigate or prosecute any alcohol or drug abuse patient.[facility] HospitalIn the event this information is protected by the Federal Confidentiality of Alcohol and Drug Abuse Patient Records regulations: The Federal rules restrict any use of the information to criminally investigate or prosecute any alcohol or drug abuse patient.[facility] HospitalIn the event this information is protected by the Federal Confidentiality of Alcohol and Drug Abuse Patient Records regulations: The Federal rules restrict any use of the information to criminally investigate or prosecute any alcohol or drug abuse patient.[facility] HospitalIn the event this information is protected by the Federal Confidentiality of Alcohol and Drug Abuse Patient Records regulations: The Federal rules restrict any use of the information to criminally investigate or prosecute any alcohol or drug abuse patient.[facility] HospitalIn the event this information is protected by the Federal Confidentiality of Alcohol and Drug Abuse Patient Records regulations: The Federal rules restrict any use of the information to criminally investigate or prosecute any alcohol or drug abuse patient.[facility] Reason for Visit (unrecogniz ed section [...] Care Teams (unrecognized sec tion and content) Licensing Services Clerk Relationship Specialty Start Date End Date Devon Moreira, DO [address] [place] [address] PCP - General 05/27/00 Licensing Services Clerk Relationship Specialty Start Date End Date Devon Moreira, DO [address] [place] [address] PCP - General 05/27/00 Licensing Services Clerk Relationship Specialty Start Date End Date Devon Moreira, DO [address] [place] [address] PCP - General 05/27/00 Licensing Services Clerk Relationship Specialty Start Date End Date Devon Moreira, DO [address] [place] [address] PCP - General 05/27/00 Licensing Services Clerk Relationship Specialty Start Date End Date Devon Moreira, DO [address] [place] [address] PCP - General 05/27/00 Licensing Services Clerk Relationship Specialty Start Date End Date Devon Moreira, DO [address] [place] [address] PCP - General 05/27/00 Licensing Services Clerk Relationship Specialty Start Date End Date Devon Moreira, DO [address] [place] [address] PCP - General 05/27/00 Licensing Services Clerk Relationship Specialty Start Date End Date Devon Moreira, DO [address] [place] [address] PCP - General 05/27/00 Licensing Services Clerk Relationship Specialty Start Date End Date Devon Moreira, DO [address] [place] [address] PCP - General 05/27/00 Licensing Services Clerk Relationship Specialty Start Date End Date Devon Moreira, DO [address] [place] [address] PCP - General 05/27/00 Licensing Services Clerk Relationship Specialty Start Date End Date Devon Moreira, DO [address] [place] [address] PCP - General 05/27/00 Licensing Services Clerk Relationship Specialty Start Date End Date Devon Moreira, DO [address] [place] [address] PCP - General 05/27/00 Licensing Services Clerk Relationship Specialty Start Date End Date Devon Moreira, DO [address] [place] [address] PCP - General 05/27/00 Licensing Services Clerk Relationship Specialty Start Date End Date Devon Moreira, DO [address] [place] [address] PCP - General 05/27/00 Licensing Services Clerk Relationship Specialty Start Date End Date Devon Moreira, DO [address] [place] [address] PCP - General 05/27/00 Licensing Services Clerk Relationship Specialty Start Date End Date Devon Moreira, DO [address] [place] [address] PCP - General 05/27/00 Licensing Services Clerk Relationship Specialty Start Date End Date Devon Moreira, DO [address] [place] [address] PCP - General 05/27/00 Licensing Services Clerk Relationship Specialty Start Date End Date Devon Moreira, DO [address] [place] [address] PCP - General 05/27/00 Licensing Services Clerk Relationship Specialty Start Date End Date Devon Moreira DO [address] [place] [address] PCP - General 05/27/00 Team Status: Active Member Role Status Dates Devon Moreira DO Primary Care Provider Active Team Status: Inactive Member Role Status Dates Devon Moreira DO Primary Care Provider Active Sadia Aguilar APRN Attending Provider Active Licensing Services Clerk Relationship Specialty Start Date End Date Devon Moreira DO [address] [place] [address] PCP - General 05/27/00 Licensing Services Clerk Relationship Specialty Start Date End Date Devon Moreira DO [address] [place] [address] PCP - General 05/27/00 Licensing Services Clerk Relationship Specialty Start Date End Date Ni Cabrera, [address] [facility] [address] [place] [address] PCP - ACO Reach 07/09/22 Devon Moreira MD [address] [place] [id number] PCP - General Internal Medicine 07/14/22 PRN Active and Recently Administ ered Medications (unrecognized section and content) Medication Order 01/10/2022 01/11/2022 01/12/2022 lidocaine (PF) 10 mg/mL (1 %) injection (XYLOCAINE) SUBCUTANEOUS, X (OR/PROCEDURE) PRN, Starting on Wed01/12/22 at 1032, Until Wed01/13/22 at 0303, Intraprocedure 1032 (Given - Provid er: Vani Hdz APRN.FLOOR TECH) Goals (unrecognized section and content) Goals may [...] BE BASED ON THE PRIMARY CLINICAL RECORDS. [facility] [employer] [facility]. provides no warranty or guarantee of the accuracy or completeness of information in this document.
[2023-03-27 11:11] LABS: Tacrolimus (FK506), Blood 7.9 ng/mL (2.0-20.0)
== END 2023-03-24 08:12 | disposition home or self-care (01) ==
LOC: LAB 08:11
PROVIDERS: PCP Internal Medicine; Visit Provider Internal Medicine
DX: N18.9 Chronic kidney disease, unspecified (principal); Z51.81 Encounter for therapeutic drug level monitoring
CPT/HCPCS: 36415; 80053; 80197; 83735; 84100; 85025; 85610

== ENCOUNTER 2023-03-31 00:50 | Outpatient (REF) | payer MEDICARE, OTHER, SELFPAY ==
--- OUTSIDE RECORDS SUMMARY | 2023-03-31 00:56 | XMS_ITS | CCD ---
Author Name Unknown Address [id number] [place] [address] Organization [facility] Care Team Providers Care Traveling Sales Representative Name Role Phone PROVIDER, UNKNOWN Attending Unavailable [...] Consulting Unavailable BALL, DR TAM Consulting Unavailable LILILE, DR TAM Attending Unavailable BALL, DR TAM [...] DR TAM Primary Care Unavailable BALL, DR TMA Consulting Unavailable BALL, DR TAM Attending Unavailable [...] Care Unavailable FAGGIONATOARTUR Consulting Unavailable MISC, DR RYEDR Admitting Unavailable MISC, DR RYDER Attending Unavailable [...] Attending Provider Sadia Aguilar Attending Unavailable Sadia Aguialr Admitting Unavailable Devon Moreira Primary Care Unavailable [...] [PYRIDOSTIGMINE BROMIDE] Drug Allergy 2 GI Upset [facility] Work Phone: (1 source) ALLERGIES NOT ON FILE; Translations: [ALLERGIES NOT ON FILE] Propensity to adverse reactions (disorder) [facility] Repository (1 source) Pyridostigmine Drug Allergy 2 [...] Indications: Type 1 diabetes mellitus with nephropathy ([facility]) 3 units breakfast, 5 units lunch, 8 [...] 10 units and notify provider [facility] Bailey [phone] MG (5 sources) take 155-852 tablets by mouth twice daily K [facility]os Bailey-S[facility] Di [facility] Bailey [phone] MG 1 tablet Orally twice daily Active take 155-852 tablets by mouth four times daily take 155-852 tablets by mouth four times daily K Phos Bailey-Sod Phos Di & Bailey 155-852-130 MG 1 tablet Orally Four times [...] needed. docusate sodium 50 mg / sennosides, prison 8.6 mg oral tablet (20 sources) Start: [...] by mouth daily with lunch. Magic Cup Wise with lunch 7110 mL 0 12/11/2021 Active Comment on above: Take 237 mL by mouth daily with lunch. Magic Cup Wise with lunch polyethylene glycol 3350 19745 mg powder for oral solution (20 sources) [...] Comment on above: TAKE [address] [facility] DAILY AT BEDTIME. tacrolimus 1 mg [...] Active Start: 01-23-2019 take 1 capsule by [facility] twice daily tacrolimus IR (PROGRAF) 1 mg capsule Take 1 capsule by mouth twice daily. 180 capsule 3 10/09/2021 Suspended Comment on above: TAKE 1 CAPSULE BY MO UT TWICE A DAY*Z94.0* Take 1 capsule by mo [facility] twice daily. Take 2 capsules by [...] Coronary arteriosclerosis; Translations: [Atherosclerotic heart disease of [place] coronary artery without angina pectoris] Onset: 7 [...] current use of immunosuppressive drug; Translations: [Other terminologist (current) drug therapy] Episodic Other aftercare (12 sources) Long-term current use of insulin; Translations: [USP (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 of insulin] Episodic Other aftercare (10 sources) terminal computer operator (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 of insulin; Translations: [PRISON CURRENT USE OF INSULIN] Onset: 2 Episodic Other aftercare (5 sources) terminal computer operator (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 of anticoagulants; Translations: [E MARKETING SPECIALIST CURRNT USE ANTICOAGULANTS] Onset: 3 Episodic Other [...] 07-30-2006 Episodic Other aftercare (2 sources) Other terminologist (current) drug therapy; Translations: [OTH E MARKETING SPECIALIST CURRENT DRUG THERAPY] Onset: 02-05-2022 Episodic Other aftercare (4 sources) Encounter for orthopedic aftercare following surgical amputation; Translations: [ENC ORTHOPED AFTERCARE FLW SURG AMP] Onset: 02-05-2022 Episodic Other aftercare (4 sources) terminal computer operator (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 of antibiotics; Translations: [PRISON CURRENT USE ANTIBIOTICS] Onset: 12-20-2021 Episodic Other aftercare (1 source) terminal computer operator (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 of aspirin; Translations: [PRISON CURRENT USE OF ASPIRIN] Onset: 01-19-2022 Episodic [...] Interpretation and review of laboratory results Normal [facility] POCT glycosylated hemoglobin (Hb A1C) docked deviceon 03-18-2023 HbA1c (Bld) [Mass fraction] 7.8 % [facility] Sonya 12-25-2022 DIAMANTEN Telephone (TXCTGL) ALEX ALMONTE ([id number]) 1945 M Date Time Provider Department 12/25/22 KIDNEY TXP COORDINATORS TXCTGL During your visit today, we recorded the following information about you: Duane Ryan 12/25/2022 10:41 AM Signed Labs 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 Magic Cup Wise with lunch aspirin, enteric coated (ASPIRIN, ENTERIC [...] in am? thanks! RF Pts RN at [facility] reports pts sister picks up Rx from [...] 0. (more content not included)... Normal [facility] Office Visiton 09-09-2022 Follow-up visit [id number] Alex Almonte 1945 M Date Provider Department Center 09/09/2022 1596-SARTHAK PARNELL [facility] Family History Problem Relation Age of Onset Cancer Mother Aneurysm Father Cancer Father Parkinsonism Father Family Status - Relation Status Age at Mother Father Level of Service:[id number] NE OFFICE/OUTPATIENT ESTABLISHED MOD MDM 30-39 MIN Normal [facility] Glucose Poct Glucometerson 0 07-20-2022 Commemt1 Glu2: Cleaned Meter Normal [facility] Comment on above: Result Comment: PERF ORMED BY: [facility] [address] [address] PATHOLOGIST DRESS MARKER JOSE F ELLIOTT M.D. Performed By: #### G LURICO #### Point of Care testing , Glucose [Mass/Vol] 176 mg/dL Normal [facility] Comment on above: Result Comment: Range Glucose Reference Range is dependent on time and content of last meal. Glucose of more than 200 mg/dL in a nonstressed, ambulatory subject supports the diagnosis of Diabetes Mellitus. Performed By: #### G MADY #### Point of Care testing , FK506 (TACROLIMUS) WHOLE BLO ODon 07-12-2022 Tacrolimus (FK506), Blood 10.9 ng/mL Normal 2.0-20.0 [facility] Comment on above: Result Comment: Trou gh (immediately following transplant) 15.0 . Trough (steady state, 2 weeks or more after transplant): 3.0 - 8.0 . Performed by LC-MS/MS technology. Performed By: #### F [id number] ####[facility] T[address] [place], [place] [address]Dr. Farhat Leal CBC AUTO DIFFon 07-10-2022 BASO # 0.0 103/ul Normal 0.0-0.1 [facility] Comment on above: Performed By: #### C BC ####[facility] Y[address] [place], [place] [address]Dr. Farhat Leal Basophils/100 WBC (Bld) 0.5 % Normal 0.2-2.0 [facility] Comment on above: Performed By: #### C BC ####[facility] [address] [place], [place] [address]Dr. Farhat Leal EO # 0.3 103/ul Normal 0.0-0.7 [facility] Comment on above: Performed By: #### C BC ####[facility] C[address] [place], [place] [address]Dr. Farhat Leal Eosinophils/100 WBC (Bld) 4.9 % Normal 0.9-7.0 [facility] Comment on above: Performed By: #### C BC ####[facility] Pl[address] [place], [place] [address]Dr. Farhat Leal Erythrocyte distribution width (RBC) [Ratio] 13.8 % Normal 11.0-15.0 [facility] Comment on above: Performed By: #### C BC ####[facility] S[address] [place], [place] [address]Dr. Farhat Leal Hematocrit (Bld) [Volume fraction] 36.6 % Critically low 42.0-54.0 [facility] Comment on above: Performed By: #### C BC ####[facility] [address] [place] [id number]. Farhat Leal Hemoglobin (Bld) [Mass/Vol] 12.2 g/dL Critically low 14.0-18.0 [facility] Comment on above: Performed By: #### C BC ####[facility] [address] [place] [id number]. Farhat Leal IG # 0.01 10e3/ul Normal 0.00-0.03 [facility] Comment on above: Performed By: #### C BC ####[facility] [address] [place], [place] [address]Dr. Farhat Leal IG % 0.2 % Normal 0.0-0.5 [facility] Comment on above: Performed By: #### C BC ####[facility] Ub[address] [place], [place] [address]Dr. Farhat Leal LYMPH # 2.2 103/ul Normal 1.2-3.8 [facility] Comment on above: Performed By: #### C BC ####[facility] G[address] [place], [place] [address]Dr. Farhat Leal Lymphocytes/100 WBC (Bld) 33.9 % Normal 20.5-60.0 [facility] Comment on above: Performed By: #### C BC ####[facility] Ifweh[address] [place], [place] [address]Dr. Farhat Leal MANUAL DIFF REQ NO Normal [facility] Comment on above: Performed By: #### C BC ####[facility] [address] [place], [place] [address]Dr. Farhat Leal MCH (RBC) [Entitic mass] 31.0 pg Normal 25.9-34.0 [facility] Comment on above: Performed By: #### C BC ####[facility] G[address] [place], [place] [address]Dr. Farhat Leal MCHC (RBC) [Mass/Vol] 33.3 g/dL Normal 29.9-35.2 [facility] Comment on above: Performed By: #### C BC ####[facility] [address] [place] [id number]. Farhat Leal MCV (RBC) [Entitic vol] 93.1 fL Normal 80.0-94.0 [facility] Comment on above: Performed By: #### C BC ####[facility] [address] [place] [id number]. Farhat Leal MONO # 0.7 103/ul Normal 0.3-0.8 [facility] Comment on above: Performed By: #### C BC ####[facility] I[address]iv[address] [place] [id number]. Farhat Leal Monocytes/100 WBC (Bld) 10.8 % Normal 1.7-12.0 [facility] Comment on above: Performed By: #### C BC ####[facility] [address] [place] [id number]. Farhat Leal NEUT # 3.2 103/ul Normal 1.4-6.5 [facility] Comment on above: Performed By: #### C BC ####[facility] C[address] [place] [id number]. Farhat Leal Neutrophils/100 WBC (Bld) 49.7 % Normal 43.0-75.0 [facility] Comment on above: Performed By: #### C BC ####[facility] [address] [place] [id number]. Farhat Leal Platelet mean volume (Bld) [Entitic vol] 10.9 fL Normal 9.5-13.5 [facility] Comment on above: Performed By: #### C BC ####[facility] [address] [place] [id number]. Farhat Leal PLT 195 103/ul Normal 150-450 [facility] Comment on above: Performed By: #### C BC ####[facility] [address] [place] [id number]. Farhat Leal RBC 3.93 106/ul Critically low 4.70-6.10 [facility] Comment on above: Performed By: #### C BC ####[facility] [address] [place] [id number]. Farhat Leal WBC 6.4 103/ul Normal 4.0-11.0 [facility] Comment on above: Performed By: #### C BC ####[facility] [address] [place] [address]Dr. Farhat Leal MAGNESIUMon 07-10-2022 Magnesium [Mass/Vol] 1.9 mg/dL Normal 1.8-2.4 [facility] Comment on above: Performed By: #### M G, PHOS ####[facility] [address] [place] [address]Dr. Farhat Leal PHOSPHORUSon 07-10-2022 Phosphate [Mass/Vol] 4.7 mg/dL Normal 2.6-4.7 [facility] Comment on above: Performed By: #### M Anais PHOS ####[facility] Gnfe[address] [place], [place] [address]Dr. Farhat Leal PROF 14(COMP METB)on 023 Albumin [Mass/Vol] 2.7 g/dL Critically low 3.4-5.0 [facility] Comment on above: Performed By: #### C MP ####[facility] [address] [place], [place] [address]Dr. Farhat Leal Albumin/Globulin [Mass ratio] 0.8 {ratio} Normal [facility] Comment on above: Performed By: #### C MP ####[facility] [address] [place] [address]Dr. Farhat Leal ALP [Catalytic activity/Vol] 59 U/L Normal 46-116 [facility] Comment on above: Performed By: #### C MP ####[facility] [address] [place] [address]Dr. Farhat Leal ALT [Catalytic activity/Vol] 16 U/L Normal 16-63 [facility] Comment on above: Performed By: #### C MP ####[facility] [address] [place] [address]Dr. Farhat Leal Anion gap [Moles/Vol] 12.3 mmol/L Normal [facility] Comment on above: Performed By: #### C MP ####[facility] [address]ixypq[address] [place] [phone]. Farhat Leal AST [Catalytic activity/Vol] 17 U/L Normal 15-37 [facility] Comment on above: Performed By: #### C MP ####[facility] R[address]pltur8[address] [place] [id number]. Farhat Leal Bilirubin [Mass/Vol] 0.5 mg/dL Normal 0.2-1.0 [facility] Comment on above: Performed By: #### C MP ####[facility] Xaq[address]cnypd[address] [place] [phone]. Farhat Leal Calcium [Mass/Vol] 8.5 mg/dL Normal 8.5-10.1 [facility] Comment on above: Performed By: #### C MP ####[facility] [address] [place], [place] [address]Dr. Farhat Leal Chloride [Moles/Vol] 104 mmol/L Normal 98-107 [facility] Comment on above: Performed By: #### C MP ####[facility] F[address]nsxeahx4246 [place] [phone]. Farhat Leal CO2 [Moles/Vol] 27.6 mmol/L Normal 21.0-32.0 [facility] Comment on above: Performed By: #### C MP ####[facility] [address] [place] [phone]. Farhat Leal Creatinine [Mass/Vol] 1.79 mg/dL Critically high 0.70-1.30 [facility] Comment on above: Performed By: #### C MP ####[facility] [address]hwcc[address] [place] [phone]. Farhat Elvis EGFR-AF [place]IZ[place] 45 mL/min/1.73m2 Critically low >=60 [facility] Comment on above: Performed By: #### C MP ####[facility] H[address]wc[address]aeo60[address] [place] [phone]. Farhat Elvis EGFR-NON AF [place]IZ[place] 37 mL/min/1.73m2 Critically low >=60 [facility] Comment on above: Performed By: #### C MP ####[facility] Xr[address] [place] [address]Dr. Farhat Leal Globulin (S) [Mass/Vol] 3.2 g/dL Normal [facility] Comment on above: Performed By: #### C MP ####[facility] [address] [place] [phone]. Farhat Leal Glucose [Mass/Vol] 203 mg/dL Critically high 74-106 [facility] Comment on above: Performed By: #### C MP ####[facility] [address] [place] [address]Dr. Farhat Leal Potassium [Moles/Vol] 3.9 mmol/L Normal 3.5-5.1 [facility] Comment on above: Performed By: #### C MP ####[facility] [address]nxp[address] [place] [address]Dr. Farhat Leal Protein [Mass/Vol] 5.9 g/dL Critically low 6.4-8.2 [facility] Comment on above: Performed By: #### C MP ####[facility] [address]qi[address] [place] [address]Dr. Farhat Leal Sodium [Moles/Vol] 140 mmol/L Normal 136-145 [facility] Comment on above: Performed By: #### C MP ####[facility] [address] [place] [address]Dr. Farhat Leal Urea nitrogen [Mass/Vol] 61.0 mg/dL Critically high 7.0-18.0 [facility] Comment on above: Performed By: #### C MP ####[facility] [address] [place] [address]Dr. Farhat Leal Urea nitrogen/Creatinine [Mass ratio] 34.1 mg/mg Normal [facility] Comment on above: Performed By: #### C MP ####[facility] Arozrhkdkj[address] [place] [phone]. Farhat Elvis PROTIMEon 07-10-2022 INR Coag (PPP) [Relative time] 2.95 {INR} Normal [facility] Comment on above: Performed By: #### P T ####[facility] [address] [place] [address]Dr. Farhat Leal INR GUIDELINES SEE BELOW Normal [facility] Comment on above: Result Comment: MALINA RED INR: 2.0 - 3.0 CONDITIONS NOT LISTED BELOW 2.5 - 3.5 FOR PROSTHETIC HEART VALVE REPLACEMENT 2.5 - 3.5 RECURRENT THROMBOSIS Performed By: #### P T ####[facility] [address] [place], [place] [address]Dr. Farhat Leal PT Coag (PPP) [Time] 29.4 s Critically high 9.0-11.6 [facility] Comment on above: Performed By: #### P T ####[facility] W[address] [place], [place] [address]Dr. Farhat Leal FK506 (TACROLIMUS) WHOLE BLO ODon 07-07-2022 Tacrolimus (FK506), Blood 8.3 ng/mL Normal 2.0-20.0 [facility] Comment on above: Result Comment: Trou gh (immediately following transplant) 15.0 . Trough (steady state, 2 weeks or more after transplant): 3.0 - 8.0 . Performed by LC-MS/MS technology. Performed By: #### F K506T ####[facility] [address]ve[address] [place], [place] [address]Dr. Farhat Leal CBC AUTO DIFFon 07-03-2022 BASO # 0.0 103/ul Normal 0.0-0.1 [facility] Comment on above: Performed By: #### C BC ####[facility] [address] [place], [place] [address]Dr. Farhat Leal Basophils/100 WBC (Bld) 0.6 % Normal 0.2-2.0 [facility] Comment on above: Performed By: #### C BC ####[facility] [address]th[address] [place], [place] [address]Dr. Farhat Leal EO # 0.3 103/ul Normal 0.0-0.7 [facility] Comment on above: Performed By: #### C BC ####[facility] Nrhxe[address]qlhb[address] [place] [id number]. Farhat Leal Eosinophils/100 WBC (Bld) 4.1 % Normal 0.9-7.0 [facility] Comment on above: Performed By: #### C BC ####[facility] Ubils[address]hy[address] [place] [id number]. Farhat Leal Erythrocyte distribution width (RBC) [Ratio] 14.0 % Normal 11.0-15.0 [facility] Comment on above: Performed By: #### C BC ####[facility] Gn[address]ad[address] [place], [place] [address]Dr. Farhat Leal Hematocrit (Bld) [Volume fraction] 35.9 % Critically low 42.0-54.0 [facility] Comment on above: Performed By: #### C BC ####[facility] I[address]ixs[address] [place], [place] [address]Dr. Farhat Leal Hemoglobin (Bld) [Mass/Vol] 12.0 g/dL Critically low 14.0-18.0 [facility] Comment on above: Performed By: #### C BC ####[facility] [address]xf[address] [place], [place] [address]Dr. Farhat Leal IG # 0.04 10e3/ul Critically high 0.00-0.03 [facility] Comment on above: Performed By: #### C BC ####[facility] F[address]tf[address]sfz[address] [place], [place] [address]Dr. Farhat Leal IG % 0.6 % Critically high 0.0-0.5 [facility] Comment on above: Performed By: #### C BC ####[facility] Fbuolbcplc[address] [place], [place] [address]Dr. Farhat Leal LYMPH # 1.5 103/ul Normal 1.2-3.8 [facility] Comment on above: Performed By: #### C BC ####[facility] C[address]vuzj[address] [place], [place] [address]Dr. Farhat Leal Lymphocytes/100 WBC (Bld) 21.5 % Normal 20.5-60.0 [facility] Comment on above: Performed By: #### C BC ####[facility] [address] [place] [id number]. Farhat Leal MANUAL DIFF REQ NO Normal [facility] Comment on above: Performed By: #### C BC ####[facility] [address]dot[address] [place] [phone]. Farhat Leal MCH (RBC) [Entitic mass] 30.8 pg Normal 25.9-34.0 [facility] Comment on above: Performed By: #### C BC ####[facility] Yx[address]okts[address] [place] [phone]. Farhat Leal MCHC (RBC) [Mass/Vol] 33.4 g/dL Normal 29.9-35.2 [facility] Comment on above: Performed By: #### C BC ####[facility] [address] [place], [place] [address]Dr. Farhat Leal MCV (RBC) [Entitic vol] 92.1 fL Normal 80.0-94.0 [facility] Comment on above: Performed By: #### C BC ####[facility] [address] [place], [place] [id number]. Farhat Leal MONO # 0.6 103/ul Normal 0.3-0.8 [facility] Comment on above: Performed By: #### C BC ####[facility] [address]hsud[address] [place], [place] [address]Dr. Farhat Leal Monocytes/100 WBC (Bld) 8.7 % Normal 1.7-12.0 [facility] Comment on above: Performed By: #### C BC ####[facility] [address]ds[address] [place], [place] [address]Dr. Farhat Leal NEUT # 4.4 103/ul Normal 1.4-6.5 [facility] Comment on above: Performed By: #### C BC ####[facility] [address] [place], [place] [id number]. Farhat Leal Neutrophils/100 WBC (Bld) 64.5 % Normal 43.0-75.0 [facility] Comment on above: Performed By: #### C BC ####[facility] [address] [place] [address]Dr. Farhat Leal Platelet mean volume (Bld) [Entitic vol] 10.1 fL Normal 9.5-13.5 [facility] Comment on above: Performed By: #### C BC ####[facility] [address] [place] [address]Dr. Farhat Leal PLT 177 103/ul Normal 150-450 [facility] Comment on above: Performed By: #### C BC ####[facility] Sh[address]ytvgb[address] [place] [address]Dr. Farhat Leal RBC 3.90 106/ul Critically low 4.70-6.10 [facility] Comment on above: Performed By: #### C BC ####[facility] [facility] [address] [place] [address]Dr. Farhat Leal WBC 6.8 103/ul Normal 4.0-11.0 [facility] [place] Comment on above: Performed By: #### C BC ####[facility] [address]mlk[address] [place] [address]Dr. Farhat Leal PROF 14(COMP METB)on 023 Albumin [Mass/Vol] 2.8 g/dL Critically low 3.4-5.0 [facility] Comment on above: Performed By: #### C MP ####[facility] [address]kbyxhfwk[address] [place] [address]Dr. Farhat Leal Albumin/Globulin [Mass ratio] 0.8 {ratio} Normal [facility] [place] Comment on above: Performed By: #### C MP ####[facility] Fxoppqeftz[address] [place] [address]Dr. Farhat Leal ALP [Catalytic activity/Vol] 68 U/L Normal 46-116 [facility] [place] Comment on above: Performed By: #### C MP ####[facility] Waqgxpoksy[address] [place] [address]Dr. Farhat Leal ALT [Catalytic activity/Vol] 20 U/L Normal 16-63 [facility] [place] Comment on above: Performed By: #### C MP ####[facility] [address]hktkmzcac32[address] [place] [id number]. Farhat Leal Anion gap [Moles/Vol] 11.1 mmol/L Normal [facility] Comment on above: Performed By: #### C MP ####[facility] Afxzbuhbpg[address] [place] [id number]. Farhat Leal AST [Catalytic activity/Vol] 22 U/L Normal 15-37 [facility] [place] Comment on above: Performed By: #### C MP ####[facility] Fmhvgmarpl[address] [place], [place] [address]Dr. Farhat Leal Bilirubin [Mass/Vol] 0.4 mg/dL Normal 0.2-1.0 [facility] [place] Comment on above: Performed By: #### C MP ####[facility] Qsgmguplpd[address] [place], [place] [address]Dr. Farhat Leal Calcium [Mass/Vol] 8.5 mg/dL Normal 8.5-10.1 [facility] Comment on above: Performed By: #### C MP ####[facility] Kcvppflbsr[address] [place], [place] [address]Dr. Farhat Lela Chloride [Moles/Vol] 106 mmol/L Normal 98-107 [facility] [place] Comment on above: Performed By: #### C MP ####[facility] Dqmtdhckjq[address] [place], [place] [address]Dr. Farhat Leal CO2 [Moles/Vol] 29.1 mmol/L Normal 21.0-32.0 [facility] Comment on above: Performed By: #### C MP ####[facility] Axygxkuqou[address] [place], [place] [address]Dr. Farhat Leal Creatinine [Mass/Vol] 1.70 mg/dL Critically high 0.70-1.30 [facility] [place] Comment on above: Performed By: #### C MP ####[facility] Txrrhieufq[address] [place], [place] [address]Dr. Farhat Leal EGFR-AF [place] 48 mL/min/1.73m2 Critically low >=60 [facility] Comment on above: Performed By: #### C MP ####[facility] [address]juyqfvbn[address] [place] [address]Dr. Farhat Leal EGFR-NON AF [place] 39 mL/min/1.73m2 Critically low >=60 [facility] [place] Comment on above: Performed By: #### C MP ####[facility] Qeitgptvyk[address] [place] [address]Dr. Farhat Leal Globulin (S) [Mass/Vol] 3.6 g/dL Normal [facility] [place] Comment on above: Performed By: #### C MP ####[facility] Oxgepujoxa[address] [place] [address]Dr. Farhat Leal Glucose [Mass/Vol] 312 mg/dL Critically high 74-106 [facility] Comment on above: Performed By: #### C MP ####[facility] Oalbizzuzx[address] [place] [address]Dr. Farhat Leal Potassium [Moles/Vol] 4.2 mmol/L Normal 3.5-5.1 [facility] [place] Comment on above: Performed By: #### C MP ####[facility] Hqpmenuwqb[address] [place], [place] [address]Dr. Farhat Leal Protein [Mass/Vol] 6.4 g/dL Normal 6.4-8.2 [facility] Comment on above: Performed By: #### C MP ####[facility] Eavchflovz[address] [place], [place] [address]Dr. Farhat Leal Sodium [Moles/Vol] 142 mmol/L Normal 136-145 [facility] Comment on above: Performed By: #### C MP ####[facility] Hqkvmxqruj[address] [place], [place] [address]Dr. Farhat Leal Urea nitrogen [Mass/Vol] 49.0 mg/dL Critically high 7.0-18.0 [facility] [place] Comment on above: Performed By: #### C MP ####[facility] Sqmbiyynha[address] [place], [place] [address]Dr. Farhat Leal Urea nitrogen/Creatinine [Mass ratio] 28.8 mg/mg Normal [facility] [place] Comment on above: Performed By: #### C MP ####[facility] Jgsibawpsg[address] [place], [place] [address]Dr. Farhat Leal PROTIMEon 07-03-2022 INR Coag (PPP) [Relative time] 2.23 {INR} Normal [facility] Comment on above: Performed By: #### P T ####[facility] [address]ksoyjwip[address] [place], [place] [address]Dr. Farhat Leal INR GUIDELINES SEE BELOW Normal [facility] Comment on above: Result Comment: MALINA RED INR: 2.0 - 3.0 CONDITIONS NOT LISTED BELOW 2.5 - 3.5 FOR PROSTHETIC HEART VALVE REPLACEMENT 2.5 - 3.5 RECURRENT THROMBOSIS Performed By: #### P T ####[facility] Zxobshlnle[address] [place], [place] [address]Dr. Farhat Leal PT Coag (PPP) [Time] 22.6 s Critically high 9.0-11.6 [facility] Comment on above: Performed By: #### P T ####[facility] Scfvtuxrpb[address] [place], [place] [address]Dr. Farhat Leal FK506 (TACROLIMUS) WHOLE BLO ODon 06-29-2022 Tacrolimus (FK506), Blood 12.2 ng/mL Normal 2.0-20.0 [facility] [place] Comment on above: Result Comment: Trou gh (immediately following transplant) 15.0 . Trough (steady state, 2 weeks or more after transplant): 3.0 - 8.0 . Performed by LC-MS/MS technology. Performed By: #### F K506T ####[facility] Ryxtmzgcrg[address] [place], [place] [address]Dr. Farhat Leal CBC AUTO DIFFon 06-26-2022 BASO # 0.0 103/ul Normal 0.0-0.1 [facility] Comment on above: Performed By: #### C BC ####[facility] Efnzaobxyn[address] [place], [place] [address]Dr. Farhat Leal Basophils/100 WBC (Bld) 0.5 % Normal 0.2-2.0 [facility] [place] Comment on above: Performed By: #### C BC ####[facility] [address]fm[address] [place] [address]Dr. Farhat Leal EO # 0.3 103/ul Normal 0.0-0.7 [facility] Comment on above: Performed By: #### C BC ####[facility] Thms[address]wtwnp[address] [place] [address]Dr. Farhat Leal Eosinophils/100 WBC (Bld) 4.3 % Normal 0.9-7.0 [facility] Comment on above: Performed By: #### C BC ####[facility] Mnmaaumipx[address] [place], [place] [address]Dr. Farhat Leal Erythrocyte distribution width (RBC) [Ratio] 14.1 % Normal 11.0-15.0 [facility] Comment on above: Performed By: #### C BC ####[facility] Wibvivjqrh[address] [place], [place] [address]Dr. Farhat Leal Hematocrit (Bld) [Volume fraction] 35.4 % Critically low 42.0-54.0 [facility] Comment on above: Performed By: #### C BC ####[facility] Tnfjtirleq[address] [place], [place] [address]Dr. Farhat Leal Hemoglobin (Bld) [Mass/Vol] 11.8 g/dL Critically low 14.0-18.0 [facility] Comment on above: Performed By: #### C BC ####[facility] Kgjnbobhet[address] [place], [place] [address]Dr. Farhat Leal IG # 0.02 10e3/ul Normal 0.00-0.03 [facility] Comment on above: Performed By: #### C BC ####[facility] [address]utbe[address] [place] [address]Dr. Farhat Leal IG % 0.3 % Normal 0.0-0.5 [facility] Comment on above: Performed By: #### C BC ####[facility] Tqwlprusxl[address] [place], [place] [address]Dr. Farhat Leal LYMPH # 2.4 103/ul Normal 1.2-3.8 [facility] Comment on above: Performed By: #### C BC ####[facility] [address]mlvll[address] [place] [id number]. Farhat Elvis Lymphocytes/100 WBC (Bld) 40.4 % Normal 20.5-60.0 [facility] Comment on above: Performed By: #### C BC ####[facility] [address]tbcr[address] [place] [id number]. Farhat Elvis MANUAL DIFF REQ NO Normal [facility] Comment on above: Performed By: #### C BC ####[facility] [address]jgpvnj[address] [place] [phone]. Farhat Elvis MCH (RBC) [Entitic mass] 31.0 pg Normal 25.9-34.0 [facility] Comment on above: Performed By: #### C BC ####[facility] Y[address]quma[address] [place] [address]Dr. Farhat Elvis MCHC (RBC) [Mass/Vol] 33.3 g/dL Normal 29.9-35.2 [facility] Comment on above: Performed By: #### C BC ####[facility] [address]vvfmw[address] [place] [address]Dr. Madelynlorri Leal MCV (RBC) [Entitic vol] 92.9 fL Normal 80.0-94.0 [facility] Comment on above: Performed By: #### C BC ####[facility] J[address]bskvic[address] [place] [address]Dr. Farhat Leal MONO # 0.7 103/ul Normal 0.3-0.8 [facility] Comment on above: Performed By: #### C BC ####[facility] [address]neshddu[address] [place] [address]Dr. Madelynlorri Leal Monocytes/100 WBC (Bld) 11.1 % Normal 1.7-12.0 [facility] Comment on above: Performed By: #### C BC ####[facility] Kltolomxyr[address] [place], [place] [address]Dr. Farhat Leal NEUT # 2.6 103/ul Normal 1.4-6.5 [facility] Comment on above: Performed By: #### C BC ####[facility] Rxzgspqujk[address] [place] [address]Dr. Farhat Leal Neutrophils/100 WBC (Bld) 43.4 % Normal 43.0-75.0 [facility] Comment on above: Performed By: #### C BC ####[facility] [address]xobyjv[address] [place] [address]Dr. Farhat Leal Platelet mean volume (Bld) [Entitic vol] 10.4 fL Normal 9.5-13.5 [facility] Comment on above: Performed By: #### C BC ####[facility] Obct[address]feu[address] [place] [phone]. Farhat Leal PLT 211 103/ul Normal 150-450 [facility] [place] Comment on above: Performed By: #### C BC ####[facility] Ebmwbjsfwg[address] [place] [address]Dr. Farhat Leal RBC 3.81 106/ul Critically low 4.70-6.10 [facility] Comment on above: Performed By: #### C BC ####[facility] Mrayvduafq[address] [place] [address]Dr. Madelynlorri Leal WBC 6.0 103/ul Normal 4.0-11.0 [facility] [place] Comment on above: Performed By: #### C BC ####[facility] Cnbtnmequh[address] [place], [place] [address]Dr. Farhat Leal PROF 14(COMP METB)on 023 Albumin [Mass/Vol] 2.6 g/dL Critically low 3.4-5.0 [facility] Comment on above: Performed By: #### C MP ####[facility] Z[address]xtrgmhw4[address] [place] [id number]. Farhat Leal Albumin/Globulin [Mass ratio] 0.8 {ratio} Normal [facility] Comment on above: Performed By: #### C MP ####[facility] Rsekumrepo[address] [place] [address]Dr. Farhat Elvis ALP [Catalytic activity/Vol] 64 U/L Normal 46-116 [facility] Comment on above: Performed By: #### C MP ####[facility] Iokdssurbq[address] [place] [address]Dr. Farhat Leal ALT [Catalytic activity/Vol] 18 U/L Normal 16-63 [facility] Comment on above: Performed By: #### C MP ####[facility] Vugeagxklx[address] [place] [address]Dr. Farhat Leal Anion gap [Moles/Vol] 10.2 mmol/L Normal [facility] Comment on above: Performed By: #### C MP ####[facility] Mackiaxoui[address] [place], [place] [address]Dr. Farhat Leal AST [Catalytic activity/Vol] 16 U/L Normal 15-37 [facility] [place] Comment on above: Performed By: #### C MP ####[facility] Ovwpelvukw[address] [place], [place] [address]Dr. Farhat Leal Bilirubin [Mass/Vol] 0.6 mg/dL Normal 0.2-1.0 [facility] [place] Comment on above: Performed By: #### C MP ####[facility] Puwjynquhv[address] [place], [place] [address]Dr. Farhat Leal Calcium [Mass/Vol] 8.5 mg/dL Normal 8.5-10.1 [facility] Comment on above: Performed By: #### C MP ####[facility] Wmbmboigtr[address] [place], [place] [address]Dr. Farhat Leal Chloride [Moles/Vol] 106 mmol/L Normal 98-107 [facility] Comment on above: Performed By: #### C MP ####[facility] Zmvfofupek[address] [place], [place] [address]Dr. Farhat Leal CO2 [Moles/Vol] 29.8 mmol/L Normal 21.0-32.0 [facility] Comment on above: Performed By: #### C MP ####[facility] Qpmxrjrwbp[address] [place], [place] [address]Dr. Farhat Leal Creatinine [Mass/Vol] 1.60 mg/dL Critically high 0.70-1.30 [facility] [place] Comment on above: Performed By: #### C MP ####[facility] Uubavdrtii[address] [place] [address]Dr. Farhat Leal EGFR-AF [place] 51 mL/min/1.73m2 Critically low >=60 [facility] [place] Comment on above: Performed By: #### C MP ####[facility] Krdxrhmdta26[address] [place] [address]Dr. Farhat Leal EGFR-NON AF [place] 42 mL/min/1.73m2 Critically low >=60 [facility] [place] Comment on above: Performed By: #### C MP ####[facility] Adtbvzkhfo[address] [place] [address]Dr. Farhat Leal Globulin (S) [Mass/Vol] 3.4 g/dL Normal [facility] [place] Comment on above: Performed By: #### C MP ####[facility] Fzepikuhxw[address] [place], [place] [address]Dr. Farhat Leal Glucose [Mass/Vol] 178 mg/dL Critically high 74-106 [facility] Comment on above: Performed By: #### C MP ####[facility] Wnofpinjyy88[address] [place], [place] [address]Dr. Farhat Leal Potassium [Moles/Vol] 4.0 mmol/L Normal 3.5-5.1 [facility] [place] Comment on above: Performed By: #### C MP ####[facility] Rblqfvgrsb[address] [place], [place] [address]Dr. Farhat Leal Protein [Mass/Vol] 6.0 g/dL Critically low 6.4-8.2 Th [facility] Comment on above: Performed By: #### C MP ####[facility] Pdkeuvvnqg60[address] [place] [address]Dr. Farhat Leal Sodium [Moles/Vol] 142 mmol/L Normal 136-145 [facility] Comment on above: Performed By: #### C MP ####[facility] Pjwjnsbnfq[address] [place], [place] [address]Dr. Farhat Leal Urea nitrogen [Mass/Vol] 49.0 mg/dL Critically high 7.0-18.0 [facility] [place] Comment on above: Performed By: #### C MP ####[facility] Txlcobrdcz[address] [place], [place] [address]Dr. Farhat Leal Urea nitrogen/Creatinine [Mass ratio] 30.6 mg/mg Normal [facility] Comment on above: Performed By: #### C MP ####[facility] Lvxqsxagcn[address] [place], [place] [address]Dr. Farhat Elvis PROTIMEon 06-26-2022 INR Coag (PPP) [Relative time] 1.77 {INR} Normal [facility] Comment on above: Performed By: #### P T ####[facility] Hrskoytibw[address] [place], [place] [address]Dr. Farhat Leal INR GUIDELINES SEE BELOW Normal [facility] Comment on above: Result Comment: MALINA RED INR: 2.0 - 3.0 CONDITIONS NOT LISTED BELOW 2.5 - 3.5 FOR PROSTHETIC HEART VALVE REPLACEMENT 2.5 - 3.5 RECURRENT THROMBOSIS Performed By: #### P T ####[facility] Xvaytcqiir[address] [place], [place] [address]Dr. Farhat Leal PT Coag (PPP) [Time] 18.2 s Critically high 9.0-11.6 [facility] Comment on above: Performed By: #### P T ####[facility] X[address] [place] [address]. Farhat Leal FK506 (TACROLIMUS) WHOLE BLO ODon 06-22-2022 Tacrolimus (FK506), Blood 24.5 ng/mL Invalid Interpretation Code 2.0-20.0 [facility] Comment on above: Result Comment: Trou gh (immediately following transplant) 15.0 . Trough (steady state, 2 weeks or more after transplant): 3.0 - 8.0 . Performed by LC-MS/MS technology.Patient drug level exceeds published reference range. Evaluateclinically for signs of potential toxicity. Performed By: #### F K506T ####[facility] [address]peeaqzk[address] [place], [place] [address]Dr. Farhat Leal CBC AUTO DIFFon 06-19-2022 BASO # 0.1 103/ul Normal 0.0-0.1 [facility] Comment on above: Performed By: #### C BC ####[facility] Upskfwuuwy[address] [place] [id number]. Farhat Leal Basophils/100 WBC (Bld) 0.7 % Normal 0.2-2.0 [facility] Comment on above: Performed By: #### C BC ####[facility] [address]glfodok[address] [place] [phone]. Farhat Leal EO # 0.4 103/ul Normal 0.0-0.7 [facility] Comment on above: Performed By: #### C BC ####[facility] Aetxhowvcw[address] [place], [place] [address]Dr. Farhat Leal Eosinophils/100 WBC (Bld) 5.7 % Normal 0.9-7.0 [facility] Comment on above: Performed By: #### C BC ####[facility] Xipfihrokq[address] [place], [place] [address]Dr. Farhat Leal Erythrocyte distribution width (RBC) [Ratio] 14.5 % Normal 11.0-15.0 [facility] Comment on above: Performed By: #### C BC ####[facility] Phhznxjelp[address] [place], [place] [address]Dr. Farhat Leal Hematocrit (Bld) [Volume fraction] 34.1 % Critically low 42.0-54.0 [facility] Comment on above: Performed By: #### C BC ####[facility] [address] [place], [place] [id number]. Farhat Leal Hemoglobin (Bld) [Mass/Vol] 11.3 g/dL Critically low 14.0-18.0 [facility] Comment on above: Performed By: #### C BC ####[facility] Ueqqpjudes[address] [place], [place] [address]Dr. Farhat Leal IG # 0.02 10e3/ul Normal 0.00-0.03 [facility] Comment on above: Performed By: #### C BC ####[facility] [address]zxuq[address] [place], [place] [id number]. Farhat Leal IG % 0.3 % Normal 0.0-0.5 [facility] Comment on above: Performed By: #### C BC ####[facility] Jeazawrovp[address] [place] [id number]. Farhat Leal LYMPH # 3.1 103/ul Normal 1.2-3.8 [facility] Comment on above: Performed By: #### C BC ####[facility] Gkyykhurjp38[address] [place] [id number]. Farhat Leal Lymphocytes/100 WBC (Bld) 40.6 % Normal 20.5-60.0 [facility] Comment on above: Performed By: #### C BC ####[facility] Eahkqlgikk[address] [place] [id number]. Farhat Elvis MANUAL DIFF REQ NO Normal [facility] Comment on above: Performed By: #### C BC ####[facility] Vifomrfnbf4812 [place] [phone]. Farhat Elvis MCH (RBC) [Entitic mass] 30.6 pg Normal 25.9-34.0 [facility] Comment on above: Performed By: #### C BC ####[facility] Thahmxzrib6606 [place] [phone]. Farhat Leal MCHC (RBC) [Mass/Vol] 33.1 g/dL Normal 29.9-35.2 [facility] Comment on above: Performed By: #### C BC ####[facility] Zpnjobotqk1680 [place] [id number]. Farhat Elvis MCV (RBC) [Entitic vol] 92.4 fL Normal 80.0-94.0 [facility] Comment on above: Performed By: #### C BC ####[facility] Qcebsjbdxy4399 [place] [id number]. Farhat Elvis MONO # 0.8 103/ul Normal 0.3-0.8 [facility] Comment on above: Performed By: #### C BC ####[facility] Ftdgkohxdl4502 [place] [id number]. Farhat Elvis Monocytes/100 WBC (Bld) 10.6 % Normal 1.7-12.0 [facility] Comment on above: Performed By: #### C BC ####[facility] Jooauwfpnz[address] [place] [phone]. Farhat Leal NEUT # 3.2 103/ul Normal 1.4-6.5 [facility] Comment on above: Performed By: #### C BC ####[facility] Leqoyvnpeg7716 [place] [phone]. Farhat Leal Neutrophils/100 WBC (Bld) 42.1 % Critically low 43.0-75.0 [facility] [place] Comment on above: Performed By: #### C BC ####[facility] Vjtjxgoshu8194 [place] [id number]. Farhat Leal Platelet mean volume (Bld) [Entitic vol] 10.6 fL Normal 9.5-13.5 [facility] Comment on above: Performed By: #### C BC ####[facility] Kxazziwarg[address] [place] [phone]. Madelynlorri Elvis PLT 187 103/ul Normal 150-450 [facility] Comment on above: Performed By: #### C BC ####[facility] Juphtolmca0239 [place] [phone]. Farhat Elvis RBC 3.69 106/ul Critically low 4.70-6.10 [facility] Comment on above: Performed By: #### C BC ####[facility] Jzajjbelhj7[address] [place] [phone]. Farhat Leal WBC 7.7 103/ul Normal 4.0-11.0 [facility] [place] Comment on above: Performed By: #### C BC ####[facility] [address] [place] [address]Dr. Farhat Leal PROF 14(COMP METB)on 023 Albumin [Mass/Vol] 2.5 g/dL Critically low 3.4-5.0 [facility] Comment on above: Performed By: #### C MP ####[facility] Eyzwlearvc4[address] [place] [phone]. Farhat Leal Albumin/Globulin [Mass ratio] 0.8 {ratio} Normal [facility] Comment on above: Performed By: #### C MP ####[facility] Eoaabklkvb85[address] [place] [phone]. Farhat Leal ALP [Catalytic activity/Vol] 60 U/L Normal 46-116 [facility] Comment on above: Performed By: #### C MP ####[facility] Center [address] [place] [address]Dr. Farhat Leal ALT [Catalytic activity/Vol] 16 U/L Normal 16-63 [facility] Comment on above: Performed By: #### C MP ####[facility] Aluzgnhwut[address] [place] [address]Dr. Farhat Leal Anion gap [Moles/Vol] 9.1 mmol/L Normal [facility] [place] Comment on above: Performed By: #### C MP ####[facility] Kkexdvahlp[address] [place] [address]Dr. Farhat Leal AST [Catalytic activity/Vol] 31 U/L Normal 15-37 [facility] Comment on above: Performed By: #### C MP ####[facility] Prrmexrwyb[address] [place], [place] [address]Dr. Farhat Leal Bilirubin [Mass/Vol] 0.3 mg/dL Normal 0.2-1.0 [facility] Comment on above: Performed By: #### C MP ####[facility] Fqvqcrlhmb[address] [place], [place] [address]Dr. Farhat Leal Calcium [Mass/Vol] 8.2 mg/dL Critically low 8.5-10.1 [facility] Comment on above: Performed By: #### C MP ####[facility] [address]sm[address]muzax[address] [place] [address]Dr. Farhat Leal Chloride [Moles/Vol] 106 mmol/L Normal 98-107 [facility] Comment on above: Performed By: #### C MP ####[facility] Mioevyqbpf[address] [place], [place] [address]Dr. Farhat Leal CO2 [Moles/Vol] 27.0 mmol/L Normal 21.0-32.0 [facility] Comment on above: Performed By: #### C MP ####[facility] Jbzdgqwjlf[address] [place] [address]Dr. Farhat Leal Creatinine [Mass/Vol] 1.51 mg/dL Critically high 0.70-1.30 [facility] [place] Comment on above: Performed By: #### C MP ####[facility] Xtgagopjyh[address] [place] [address]Dr. Farhat Leal EGFR-AF [place] 55 mL/min/1.73m2 Critically low >=60 [facility] [place] Comment on above: Performed By: #### C MP ####[facility] Lavxhoovne[address] [place] [address]Dr. Farhat Leal EGFR-NON AF [place] 45 mL/min/1.73m2 Critically low >=60 [facility] [place] Comment on above: Performed By: #### C MP ####[facility] Ygarjhtjbw[address] [place], [place] [address]Dr. Farhat Leal Globulin (S) [Mass/Vol] 3.2 g/dL Normal [facility] [place] Comment on above: Performed By: #### C MP ####[facility] Vfyttotczb[address] [place], [place] [address]Dr. Farhat Leal Glucose [Mass/Vol] 165 mg/dL Critically high 74-106 [facility] Comment on above: Performed By: #### C MP ####[facility] Ozisfblbyq[address] [place] [address]Dr. Farhat Leal Potassium [Moles/Vol] 4.1 mmol/L Normal 3.5-5.1 [facility] Comment on above: Performed By: #### C MP ####[facility] Wgodnourak[address] [place] [address]Dr. Farhat Leal Protein [Mass/Vol] 5.7 g/dL Critically low 6.4-8.2 Th [facility] Comment on above: Performed By: #### C MP ####[facility] Zinqsstljr[address] [place], [place] [address]Dr. Farhat Leal Sodium [Moles/Vol] 138 mmol/L Normal 136-145 [facility] Comment on above: Performed By: #### C MP ####[facility] Ynvaldethg[address] [place], [place] [address]Dr. Farhat Leal Urea nitrogen [Mass/Vol] 51.0 mg/dL Critically high 7.0-18.0 [facility] Comment on above: Performed By: #### C MP ####[facility] Qrnczwoqom[address] [place], [place] [address]Dr. Farhat Leal Urea nitrogen/Creatinine [Mass ratio] 33.8 mg/mg Normal [facility] Comment on above: Performed By: #### C MP ####[facility] Dailmevqsk[address] [place], [place] [address]Dr. Farhat Leal FK506 (TACROLIMUS) WHOLE BLO ODon 06-15-2022 Tacrolimus (FK506), Blood 16.4 ng/mL Normal 2.0-20.0 [facility] Comment on above: Result Comment: Trou gh (immediately following transplant) 15.0 . Trough (steady state, 2 weeks or more after transplant): 3.0 - 8.0 . Performed by LC-MS/MS technology. Performed By: #### F K506T ####[facility] Zbgzzrhmjx64[address] [place], [place] [address]Dr. Farhat Leal PROTIMEon 06-15-2022 INR Coag (PPP) [Relative time] 1.64 {INR} Normal [facility] Comment on above: Performed By: #### P T ####[facility] Qcgtghajzz345[address] [place], [place] [address]DrSkylar Leal INR GUIDELINES SEE BELOW Normal [facility] Comment on above: Result Comment: MALINA RED INR: 2.0 - 3.0 CONDITIONS NOT LISTED BELOW 2.5 - 3.5 FOR PROSTHETIC HEART VALVE REPLACEMENT 2.5 - 3.5 RECURRENT THROMBOSIS Performed By: #### P T ####[facility] Ebhgkkskta27[address] [place], [place] [address]DrSkylar Leal PT Coag (PPP) [Time] 16.9 s Critically high 9.0-11.6 [facility] Comment on above: Performed By: #### P T ####[facility] Ptofvqeewc[address] [place], [place] [address]DrSkylar Leal CBC AUTO DIFFon 06-12-2022 BASO # 0.0 103/ul Normal 0.0-0.1 [facility] Comment on above: Performed By: #### C BC ####[facility] Pgkyvzawdo[address] [place] [address]Dr. Farhat Leal Basophils/100 WBC (Bld) 0.4 % Normal 0.2-2.0 [facility] Comment on above: Performed By: #### C BC ####[facility] Hdrjfzfzwo[address] [place], [place] [address]Dr. Farhat Leal EO # 0.4 103/ul Normal 0.0-0.7 [facility] Comment on above: Performed By: #### C BC ####[facility] Ngpueqzflr[address] [place], [place] [address]Dr. Farhat Leal Eosinophils/100 WBC (Bld) 5.4 % Normal 0.9-7.0 [facility] Comment on above: Performed By: #### C BC ####[facility] Elzesizylz[address] [place], [place] [address]Dr. Farhat Leal Erythrocyte distribution width (RBC) [Ratio] 14.7 % Normal 11.0-15.0 [facility] Comment on above: Performed By: #### C BC ####[facility] Dhycwkdblv[address] [place], [place] [address]Dr. Farhat Leal Hematocrit (Bld) [Volume fraction] 34.8 % Critically low 42.0-54.0 [facility] Comment on above: Performed By: #### C BC ####[facility] Hjwfiwtwpt[address] [place], [place] [address]Dr. Farhat Leal Hemoglobin (Bld) [Mass/Vol] 11.7 g/dL Critically low 14.0-18.0 [facility] Comment on above: Performed By: #### C BC ####[facility] Izpoxzjlzu[address] [place], [place] [address]Dr. Farhat Leal IG # 0.02 10e3/ul Normal 0.00-0.03 [facility] Comment on above: Performed By: #### C BC ####[facility] Rvhmbxcpan[address] [place], [place] [address]Dr. Farhat Leal IG % 0.3 % Normal 0.0-0.5 [facility] [place] Comment on above: Performed By: #### C BC ####[facility] Xggxtagemk[address] [place] [address]DrSkylar Leal LYMPH # 2.5 103/ul Normal 1.2-3.8 [facility] Comment on above: Performed By: #### C BC ####[facility] Nomtfurbhm[address] [place] [address]Dr. Farhat Leal Lymphocytes/100 WBC (Bld) 36.8 % Normal 20.5-60.0 [facility] Comment on above: Performed By: #### C BC ####[facility] Rpzulxjdia[address] [place], [place] [address]DrSkylar Leal MANUAL DIFF REQ NO Normal [facility] Comment on above: Performed By: #### C BC ####[facility] Snxtjaresh[address] [place] [address]Dr. Farhat Leal MCH (RBC) [Entitic mass] 30.9 pg Normal 25.9-34.0 [facility] Comment on above: Performed By: #### C BC ####[facility] Zaqpypleqv[address] [place], [place] [address]Dr. Madelynlorri Leal MCHC (RBC) [Mass/Vol] 33.6 g/dL Normal 29.9-35.2 [facility] Comment on above: Performed By: #### C BC ####[facility] Zvexixlmfg[address] [place], [place] [address]DrSkylar Leal MCV (RBC) [Entitic vol] 91.8 fL Normal 80.0-94.0 [facility] Comment on above: Performed By: #### C BC ####[facility] Wckwgheulx[address] [place], [place] [address]DrSkylar Leal MONO # 0.8 103/ul Normal 0.3-0.8 [facility] Comment on above: Performed By: #### C BC ####[facility] Fmyyfnedrp[address] [place], [place] [address]DrSkylar Leal Monocytes/100 WBC (Bld) 11.9 % Normal 1.7-12.0 [facility] Comment on above: Performed By: #### C BC ####[facility] Df[address]qpapyj[address] [place] [address]DrSkylar Farhat Leal NEUT # 3.1 103/ul Normal 1.4-6.5 [facility] Comment on above: Performed By: #### C BC ####[facility] Bfuknsihcd[address] [place] [address]DrSkylar Farhat Leal Neutrophils/100 WBC (Bld) 45.2 % Normal 43.0-75.0 [facility] Comment on above: Performed By: #### C BC ####[facility] Uiyyuceifg[address] [place], [place] [address]DrSkylar Farhat Leal Platelet mean volume (Bld) [Entitic vol] 10.5 fL Normal 9.5-13.5 [facility] Comment on above: Performed By: #### C BC ####[facility] Twhudxuiqa[address] [place], [place] [address]Dr. Farhat Leal PLT 175 103/ul Normal 150-450 [facility] Comment on above: Performed By: #### C BC ####[facility] Abiokpwyix[address] [place], [place] [address]DrSkylar Farhat Leal RBC 3.79 106/ul Critically low 4.70-6.10 [facility] Comment on above: Performed By: #### C BC ####[facility] F[address] [place], [place] [id number] Farhat Leal WBC 6.8 103/ul Normal 4.0-11.0 [facility] Comment on above: Performed By: #### C BC ####[facility] Gveboopllp[address] [place], [place] [address]DrSkylar Farhat Leal MAGNESIUMon 06-12-2022 Magnesium [Mass/Vol] 1.6 mg/dL Critically low 1.8-2.4 [facility] Comment on above: Performed By: #### C MP, MG, PHOS ####[facility] Yiqwtkhcpu[address] [place], [place] [address]Dr. Farhat Leal PHOSPHORUSon 06-12-2022 Phosphate [Mass/Vol] 3.8 mg/dL Normal 2.6-4.7 [facility] [place] Comment on above: Performed By: #### C MP, MG, PHOS ####[facility] Xpatbjwamp[address] [place] [address]Dr. Farhat Leal PROF 14(COMP METB)on 023 Albumin [Mass/Vol] 2.6 g/dL Critically low 3.4-5.0 [facility] Comment on above: Performed By: #### C MP, MG, PHOS ####[facility] Fcjmsxbdvb[address] [place] [address]Dr. Farhat Leal Albumin/Globulin [Mass ratio] 0.8 {ratio} Normal [facility] [place] Comment on above: Performed By: #### C MP, MG, PHOS ####[facility] Dgyjqoedbz[address] [place] [address]Dr. Farhat Leal ALP [Catalytic activity/Vol] 64 U/L Normal 46-116 [facility] [place] Comment on above: Performed By: #### C MP, MG, PHOS ####[facility] Timhesgfhf[address] [place] [address]Dr. Farhat Leal ALT [Catalytic activity/Vol] 18 U/L Normal 16-63 [facility] [place] Comment on above: Performed By: #### C MP, MG, PHOS ####[facility] Zxfseabvnp4[address] [place] [address]Dr. Farhat Leal Anion gap [Moles/Vol] 12.9 mmol/L Normal [facility] Comment on above: Performed By: #### C MP, MG, PHOS ####[facility] Tperngzgay[address] [place] [address]Dr. Farhat Leal AST [Catalytic activity/Vol] 18 U/L Normal 15-37 [facility] [place] Comment on above: Performed By: #### C MP, MG, PHOS ####[facility] Xxltiohpwb14[address] [place] [address]Dr. Farhat Leal Bilirubin [Mass/Vol] 0.4 mg/dL Normal 0.2-1.0 [facility] Comment on above: Performed By: #### C MP, MG, PHOS ####[facility] Upvvmmuadh[address] [place] [address]Dr. Farhat Leal Calcium [Mass/Vol] 8.7 mg/dL Normal 8.5-10.1 [facility] Comment on above: Performed By: #### C MP, MG, PHOS ####[facility] Zvumzrxipt[address] [place], [place] [address]Dr. Farhat Leal Chloride [Moles/Vol] 105 mmol/L Normal 98-107 [facility] Comment on above: Performed By: #### C MP, MG, PHOS ####[facility] Inglotqvek[address] [place], [place] [address]Dr. Farhat Leal CO2 [Moles/Vol] 27.9 mmol/L Normal 21.0-32.0 [facility] Comment on above: Performed By: #### C MP, MG, PHOS ####[facility] Tldazsvfby[address] [place], [place] [address]Dr. Farhat Lael Creatinine [Mass/Vol] 1.53 mg/dL Critically high 0.70-1.30 [facility] Comment on above: Performed By: #### C MP, MG, PHOS ####[facility] Bcfqaivtjo[address] [place], [place] [address]Dr. Farhat Leal EGFR-AF [place] 54 mL/min/1.73m2 Critically low >=60 [facility] Comment on above: Performed By: #### C MP, MG, PHOS ####[facility] Bpasnibqro[address] [place], [place] [address]Dr. Farhat Leal EGFR-NON AF [place] 44 mL/min/1.73m2 Critically low >=60 [facility] Comment on above: Performed By: #### C MP, MG, PHOS ####[facility] Xsutjtdrqs37[address] [place] [address]Dr. Farhat Leal Globulin (S) [Mass/Vol] 3.4 g/dL Normal [facility] Comment on above: Performed By: #### C MP, MG, PHOS ####[facility] Xicrncomcn[address] [place] [address]Dr. Farhat Leal Glucose [Mass/Vol] 179 mg/dL Critically high 74-106 [facility] Comment on above: Performed By: #### C MP, MG, PHOS ####[facility] Poajvtjyll[address] [place] [address]Dr. Farhat Leal Potassium [Moles/Vol] 3.8 mmol/L Normal 3.5-5.1 [facility] [place] Comment on above: Performed By: #### C MP, MG, PHOS ####[facility] Ktcjsffduj030[address] [place] [address]Dr. Farhat Leal Protein [Mass/Vol] 6.0 g/dL Critically low 6.4-8.2 Th [facility] Comment on above: Performed By: #### C MP, MG, PHOS ####[facility] Fuhachfkjh[address] [place] [address]Dr. Farhat Leal Sodium [Moles/Vol] 142 mmol/L Normal 136-145 [facility] Comment on above: Performed By: #### C MP, MG, PHOS ####[facility] Ibzmyfvknx55[address] [place] [address]Dr. Farhat Leal Urea nitrogen [Mass/Vol] 56.0 mg/dL Critically high 7.0-18.0 [facility] Comment on above: Performed By: #### C MP, MG, PHOS ####[facility] Amvegdcsmh[address] [place] [address]Dr. Farhat Leal Urea nitrogen/Creatinine [Mass ratio] 36.6 mg/mg Normal [facility] [place] Comment on above: Performed By: #### C MP, MG, PHOS ####[facility] Mnkbvjkblf[address] [place] [address]Dr. Farhat Elvis FK506 (TACROLIMUS) WHOLE BLO ODon 06-08-2022 Tacrolimus (FK506), Blood 13.2 ng/mL Normal 2.0-20.0 [facility] [place] Comment on above: Result Comment: Trou gh (immediately following transplant) 15.0 . Trough (steady state, 2 weeks or more after transplant): 3.0 - 8.0 . Performed by LC-MS/MS technology. Performed By: #### F K506T ####[facility] Ioygdinkwa[address] [place], [place] [address]Dr. Farhat Leal CBC AUTO DIFFon 06-05-2022 BASO # 0.1 103/ul Normal 0.0-0.1 [facility] Comment on above: Performed By: #### C BC ####[facility] Nymepdfdow[address] [place], [place] [address]Dr. Farhat Leal Basophils/100 WBC (Bld) 0.8 % Normal 0.2-2.0 [facility] Comment on above: Performed By: #### C BC ####[facility] Bkpgmelugr[address] [place], [place] [address]Dr. Farhat Leal EO # 0.3 103/ul Normal 0.0-0.7 [facility] Comment on above: Performed By: #### C BC ####[facility] Iafkfalciu[address] [place], [place] [address]Dr. Madelynlorri Leal Eosinophils/100 WBC (Bld) 4.7 % Normal 0.9-7.0 [facility] Comment on above: Performed By: #### C BC ####[facility] Rbiofgoxwp[address] [place], [place] [address]Dr. Farhat Leal Erythrocyte distribution width (RBC) [Ratio] 15.1 % Critically high 11.0-15.0 [facility] Comment on above: Performed By: #### C BC ####[facility] Kwrexgolxa[address] [place], [place] [address]Dr. Farhat Leal Hematocrit (Bld) [Volume fraction] 35.5 % Critically low 42.0-54.0 [facility] Comment on above: Performed By: #### C BC ####[facility] Zxaoumrryn[address] [place], [place] [address]Dr. Farhat Leal Hemoglobin (Bld) [Mass/Vol] 11.7 g/dL Critically low 14.0-18.0 [facility] Comment on above: Performed By: #### C BC ####[facility] K[address]fzfmysu[address] [place] [id number]. Madelynlorri Leal IG # 0.01 10e3/ul Normal 0.00-0.03 [facility] Comment on above: Performed By: #### C BC ####[facility] Ttbwwcshng[address] [place] [address]Dr. Madelynlorri Elvis IG % 0.2 % Normal 0.0-0.5 [facility] Comment on above: Performed By: #### C BC ####[facility] Yinomeqyut[address] [place] [address]Dr. Madelynlorri Elvis LYMPH # 2.1 103/ul Normal 1.2-3.8 [facility] Comment on above: Performed By: #### C BC ####[facility] Nxpkkxdxns76[address] [place] [address]Dr. Farhat Leal Lymphocytes/100 WBC (Bld) 34.5 % Normal 20.5-60.0 [facility] Comment on above: Performed By: #### C BC ####[facility] Clpnsmmnts[address] [place] [address]Dr. Farhat Leal MANUAL DIFF REQ NO Normal [facility] Comment on above: Performed By: #### C BC ####[facility] Oejfeqauzx[address] [place] [address]Dr. Farhat Elvis MCH (RBC) [Entitic mass] 30.6 pg Normal 25.9-34.0 [facility] Comment on above: Performed By: #### C BC ####[facility] Ogndcvikwv[address] [place] [address]Dr. Farhat Elvis MCHC (RBC) [Mass/Vol] 33.0 g/dL Normal 29.9-35.2 [facility] Comment on above: Performed By: #### C BC ####[facility] Rvaxrvwkys4[address] [place] [address]Dr. Farhat Elvis MCV (RBC) [Entitic vol] 92.9 fL Normal 80.0-94.0 [facility] Comment on above: Performed By: #### C BC ####[facility] Sygfdelnzs[address] [place] [id number]. Farhat Leal MONO # 0.7 103/ul Normal 0.3-0.8 [facility] Comment on above: Performed By: #### C BC ####[facility] Ppfpkxfocw2174 [place] [id number]. Farhat Leal Monocytes/100 WBC (Bld) 11.4 % Normal 1.7-12.0 [facility] Comment on above: Performed By: #### C BC ####[facility] Tcvgwxhhjy9314 [place] [id number]. Farhat Leal NEUT # 2.9 103/ul Normal 1.4-6.5 [facility] Comment on above: Performed By: #### C BC ####[facility] C[address]krdczrgs[address] [place], [place] [address]Dr. Farhat Leal Neutrophils/100 WBC (Bld) 48.4 % Normal 43.0-75.0 [facility] Comment on above: Performed By: #### C BC ####[facility] Hohmnkawys[address] [place], [place] [address]Dr. Farhat Leal Platelet mean volume (Bld) [Entitic vol] 10.7 fL Normal 9.5-13.5 [facility] Comment on above: Performed By: #### C BC ####[facility] H[address]zu[address] [place], [place] [address]Dr. Farhat Leal PLT 185 103/ul Normal 150-450 [facility] Comment on above: Performed By: #### C BC ####[facility] [address]vqsvcuyxs[address] [place], [place] [id number]. Farhat Leal RBC 3.82 106/ul Critically low 4.70-6.10 [facility] Comment on above: Performed By: #### C BC ####[facility] [address]xhpxkql[address] [place], [place] [id number]. Farhat Leal WBC 6.0 103/ul Normal 4.0-11.0 [facility] Comment on above: Performed By: #### C BC ####[facility] M[address]zxpkxj[address] [place], [place] [address]Dr. Farhat Leal MAGNESIUMon 06-05-2022 Magnesium [Mass/Vol] 1.9 mg/dL Normal 1.8-2.4 [facility] Comment on above: Performed By: #### P HOS, MG ####[facility] Yltiijoeiq[address] [place] [address]Dr. Farhat Leal PHOSPHORUSon 06-05-2022 Phosphate [Mass/Vol] 4.4 mg/dL Normal 2.6-4.7 [facility] Comment on above: Performed By: #### P HOS, MG ####[facility] Slgcgtxgzz20[address] [place] [address]Dr. Farhat Leal PROTIMEon 06-05-2022 INR Coag (PPP) [Relative time] 2.16 {INR} Normal [facility] Comment on above: Performed By: #### P T ####[facility] Xfahnhules[address] [place] [address]Dr. Farhat Leal INR GUIDELINES SEE BELOW Normal [facility] Comment on above: Result Comment: MALINA RED INR: 2.0 - 3.0 CONDITIONS NOT LISTED BELOW 2.5 - 3.5 FOR PROSTHETIC HEART VALVE REPLACEMENT 2.5 - 3.5 RECURRENT THROMBOSIS Performed By: #### P T ####[facility] Vmafcovwub[address] [place] [address]Dr. Farhat Leal PT Coag (PPP) [Time] 21.9 s Critically high 9.0-11.6 [facility] Comment on above: Performed By: #### P T ####[facility] Dtzusbuddx[address] [place] [address]Dr. Farhat Leal FK506 (TACROLIMUS) WHOLE BLO ODon 06-01-2022 Tacrolimus (FK506), Blood 26.4 ng/mL Invalid Interpretation Code 2.0-20.0 [facility] Comment on above: Result Comment: Trou gh (immediately following transplant) 15.0 . Trough (steady state, 2 weeks or more after transplant): 3.0 - 8.0 . Performed by LC-MS/MS technology.Patient drug level exceeds published reference range. Evaluateclinically for signs of potential toxicity. Performed By: #### F K506T ####[facility] [address] [place] [id number]. Farhat Leal CBC AUTO DIFFon 05-29-2022 BASO # 0.0 103/ul Normal 0.0-0.1 [facility] Comment on above: Performed By: #### C BC ####[facility] Zulithhzpv[address] [place], [place] [address]Dr. Farhat Elvis Basophils/100 WBC (Bld) 0.6 % Normal 0.2-2.0 [facility] Comment on above: Performed By: #### C BC ####[facility] Zjpbzhseta[address] [place], [place] [address]Dr. Farhat Leal EO # 0.3 103/ul Normal 0.0-0.7 [facility] Comment on above: Performed By: #### C BC ####[facility] Jbehbdmzfo[address] [place], [place] [address]Dr. Madelynlorri Leal Eosinophils/100 WBC (Bld) 4.7 % Normal 0.9-7.0 [facility] Comment on above: Performed By: #### C BC ####[facility] Qrxlvljxfz[address] [place], [place] [address]Dr. Farhat Leal Erythrocyte distribution width (RBC) [Ratio] 15.3 % Critically high 11.0-15.0 [facility] Comment on above: Performed By: #### C BC ####[facility] Ldpbdppinu[address] [place], [place] [address]Dr. Farhat Leal Hematocrit (Bld) [Volume fraction] 36.6 % Critically low 42.0-54.0 [facility] Comment on above: Performed By: #### C BC ####[facility] Qsubxgsqdb[address] [place], [place] [address]Dr. Farhat Leal Hemoglobin (Bld) [Mass/Vol] 12.3 g/dL Critically low 14.0-18.0 [facility] Comment on above: Performed By: #### C BC ####[facility] Judjnabtxv[address] [place], [place] [address]Dr. Farhat Leal IG # 0.02 10e3/ul Normal 0.00-0.03 [facility] Comment on above: Performed By: #### C BC ####[facility] [address] [place] [address]Dr. Madelynlorri Leal IG % 0.3 % Normal 0.0-0.5 [facility] Comment on above: Performed By: #### C BC ####[facility] Fdhiqaszcw39[address] [place] [id number]. Farhat Elvis LYMPH # 2.8 103/ul Normal 1.2-3.8 [facility] Comment on above: Performed By: #### C BC ####[facility] Dmebveidls[address] [place], [place] [address]Dr. Madelynlorri Leal Lymphocytes/100 WBC (Bld) 44.4 % Normal 20.5-60.0 [facility] [place] Comment on above: Performed By: #### C BC ####[facility] Ihibdncybj[address] [place], [place] [address]Dr. Farhat Leal MANUAL DIFF REQ NO Normal [facility] Comment on above: Performed By: #### C BC ####[facility] [address] [place] [address]Dr. Farhat Elvis MCH (RBC) [Entitic mass] 30.4 pg Normal 25.9-34.0 [facility] [place] Comment on above: Performed By: #### C BC ####[facility] [address] [place] [address]Dr. Farhat Elvis MCHC (RBC) [Mass/Vol] 33.6 g/dL Normal 29.9-35.2 [facility] Comment on above: Performed By: #### C BC ####[facility] Ieamquukkh[address] [place], [place] [address]Dr. Farhat Elvis MCV (RBC) [Entitic vol] 90.4 fL Normal 80.0-94.0 [facility] Comment on above: Performed By: #### C BC ####[facility] Gshrvfnhhg99[address] [place], [place] [address]Dr. Farhat Leal MONO # 0.7 103/ul Normal 0.3-0.8 [facility] Comment on above: Performed By: #### C BC ####[facility] [address]knin[address] [place] [id number]. Farhat Leal Monocytes/100 WBC (Bld) 10.7 % Normal 1.7-12.0 [facility] [place] Comment on above: Performed By: #### C BC ####[facility] [address] [place] [id number]. Farhat Leal NEUT # 2.5 103/ul Normal 1.4-6.5 [facility] Comment on above: Performed By: #### C BC ####[facility] [address] [place] [id number]. Farhat Leal Neutrophils/100 WBC (Bld) 39.3 % Critically low 43.0-75.0 [facility] [place] Comment on above: Performed By: #### C BC ####[facility] [address]wo[address] [place] [address]Dr. Farhat Leal Platelet mean volume (Bld) [Entitic vol] 10.5 fL Normal 9.5-13.5 [facility] [place] Comment on above: Performed By: #### C BC ####[facility] X[address] [place] [address]Dr. Farhat Leal PLT 190 103/ul Normal 150-450 [facility] [place] Comment on above: Performed By: #### C BC ####[facility] Yev[address]ezyhh[address] [place] [id number]. Farhat Leal RBC 4.05 106/ul Critically low 4.70-6.10 [facility] Comment on above: Performed By: #### C BC ####[facility] Qvijwckbtq13[address] [place] [id number]. Farhat Leal WBC 6.4 103/ul Normal 4.0-11.0 [facility] Comment on above: Performed By: #### C BC ####[facility] Yfu[address]zyglr64[address] [place] [address]DrSkylar Leal PROF 14(COMP METB)on 023 Albumin [Mass/Vol] 2.5 g/dL Critically low 3.4-5.0 [facility] Comment on above: Performed By: #### C MP ####[facility] [address] [place] [address]Dr. Madelynlorri Elvis Albumin/Globulin [Mass ratio] 0.8 {ratio} Normal [facility] [place] Comment on above: Performed By: #### C MP ####[facility] Edp[address]wgxt[address] [place] [address]Dr. Farhat Leal ALP [Catalytic activity/Vol] 61 U/L Normal 46-116 [facility] [place] Comment on above: Performed By: #### C MP ####[facility] X[address]fekdw[address] [place] [address]Dr. Farhat Leal ALT [Catalytic activity/Vol] 16 U/L Normal 16-63 [facility] [place] Comment on above: Performed By: #### C MP ####[facility] Tatorgkwtv[address] [place], [place] [address]Dr. Farhat Leal Anion gap [Moles/Vol] 12.3 mmol/L Normal [facility] Comment on above: Performed By: #### C MP ####[facility] Ffxwbwkzdv[address] [place], [place] [address]Dr. Farhat Leal AST [Catalytic activity/Vol] 18 U/L Normal 15-37 [facility] [place] Comment on above: Performed By: #### C MP ####[facility] Msgytlwqpv[address] [place], [place] [address]Dr. Farhat Leal Bilirubin [Mass/Vol] 0.5 mg/dL Normal 0.2-1.0 [facility] Comment on above: Performed By: #### C MP ####[facility] Ycicvrhhsf[address] [place], [place] [address]Dr. Farhat Leal Calcium [Mass/Vol] 8.6 mg/dL Normal 8.5-10.1 [facility] Comment on above: Performed By: #### C MP ####[facility] Yrqfarmiqj64[address] [place], [place] [address]Dr. Farhat Leal Chloride [Moles/Vol] 105 mmol/L Normal 98-107 [facility] [place] Comment on above: Performed By: #### C MP ####[facility] Lxmjrowvpz[address] [place] [id number]. Farhat Leal CO2 [Moles/Vol] 28.6 mmol/L Normal 21.0-32.0 [facility] Comment on above: Performed By: #### C MP ####[facility] E[address]wns[address] [place] [id number]. Farhat Leal Creatinine [Mass/Vol] 1.47 mg/dL Critically high 0.70-1.30 [facility] [place] Comment on above: Performed By: #### C MP ####[facility] Rxhxeexvmf04[address] [place] [id number]. Farhat Leal EGFR-AF [place] 56 mL/min/1.73m2 Critically low >=60 [facility] [place] Comment on above: Performed By: #### C MP ####[facility] Jdahtbfjwf90[address] [place], [place] [address]Dr. Farhat Elvis EGFR-NON AF [place] 46 mL/min/1.73m2 Critically low >=60 [facility] [place] Comment on above: Performed By: #### C MP ####[facility] [address] [place] [address]Dr. Farhat Leal Globulin (S) [Mass/Vol] 3.3 g/dL Normal [facility] [place] Comment on above: Performed By: #### C MP ####[facility] [address] [place] [address]Dr. Farhat Leal Glucose [Mass/Vol] 164 mg/dL Critically high 74-106 [facility] Comment on above: Performed By: #### C MP ####[facility] [address]tft[address]tlax[address] [place] [id number]. Farhat Leal Potassium [Moles/Vol] 3.9 mmol/L Normal 3.5-5.1 [facility] Comment on above: Performed By: #### C MP ####[facility] Zepclqardi[address] [place], [place] [address]Dr. Farhat Leal Protein [Mass/Vol] 5.8 g/dL Critically low 6.4-8.2 [facility] Comment on above: Performed By: #### C MP ####[facility] [address]utf[address] [place] [address]Dr. Farhat Leal Sodium [Moles/Vol] 142 mmol/L Normal 136-145 [facility] Comment on above: Performed By: #### C MP ####[facility] Re[address]gerlht[address] [place] [address]Dr. Farhat Leal Urea nitrogen [Mass/Vol] 53.0 mg/dL Critically high 7.0-18.0 [facility] Comment on above: Performed By: #### C MP ####[facility] Rvzrtqwayn12[address] [place], [place] [address]Dr. Farhat Leal Urea nitrogen/Creatinine [Mass ratio] 36.1 mg/mg Normal [facility] Comment on above: Performed By: #### C MP ####[facility] Jqarnqanqj16[address] [place], [place] [address]Dr. Farhat Leal PROTIMEon 05-29-2022 INR Coag (PPP) [Relative time] 2.41 {INR} Normal [facility] [place] Comment on above: Performed By: #### P T ####[facility] Hvkaffvkfu93[address] [place], [place] [address]Dr. Farhat Leal INR GUIDELINES SEE BELOW Normal [facility] Comment on above: Result Comment: MALINA RED INR: 2.0 - 3.0 CONDITIONS NOT LISTED BELOW 2.5 - 3.5 FOR PROSTHETIC HEART VALVE REPLACEMENT 2.5 - 3.5 RECURRENT THROMBOSIS Performed By: #### P T ####[facility] Gqjdmfwowj[address] [place], [place] [address]Dr. Farhat Leal PT Coag (PPP) [Time] 24.3 s Critically high 9.0-11.6 [facility] Comment on above: Performed By: #### P T ####[facility] Ttlumzieyg[address] [place], [place] [address]Dr. Farhat Leal FK506 (TACROLIMUS) WHOLE BLO ODon 05-25-2022 Tacrolimus (FK506), Blood 5.1 ng/mL Normal 2.0-20.0 [facility] [place] Comment on above: Result Comment: Trou gh (immediately following transplant) 15.0 . Trough (steady state, 2 weeks or more after transplant): 3.0 - 8.0 . Performed by LC-MS/MS technology. Performed By: #### F K506T ####[facility] [address]se[address]prosfy[address] [place] [address]Dr. Farhat Leal CBC AUTO DIFFon 05-22-2022 BASO # 0.0 103/ul Normal 0.0-0.1 [facility] Comment on above: Performed By: #### C BC ####[facility] Zvmofizeti[address] [place], [place] [address]Dr. Madelynlorri Leal Basophils/100 WBC (Bld) 0.5 % Normal 0.2-2.0 [facility] Comment on above: Performed By: #### C BC ####[facility] Qlivnqlyqf[address] [place], [place] [address]Dr. Farhat Leal EO # 0.2 103/ul Normal 0.0-0.7 [facility] Comment on above: Performed By: #### C BC ####[facility] Hyipbenifj[address] [place], [place] [address]Dr. Madelynlorri Leal Eosinophils/100 WBC (Bld) 4.0 % Normal 0.9-7.0 [facility] Comment on above: Performed By: #### C BC ####[facility] Ecggxzyepp[address] [place], [place] [address]Dr. Farhat Leal Erythrocyte distribution width (RBC) [Ratio] 15.5 % Critically high 11.0-15.0 [facility] Comment on above: Performed By: #### C BC ####[facility] Gvfkhrvavz[address] [place], [place] [address]Dr. Farhat Leal Hematocrit (Bld) [Volume fraction] 34.1 % Critically low 42.0-54.0 [facility] Comment on above: Performed By: #### C BC ####[facility] Pbrvcyoeak[address] [place], [place] [address]Dr. Farhat Leal Hemoglobin (Bld) [Mass/Vol] 11.3 g/dL Critically low 14.0-18.0 [facility] Comment on above: Performed By: #### C BC ####[facility] [address]mt[address] [place] [id number]. Farhat Leal IG # 0.03 10e3/ul Normal 0.00-0.03 [facility] Comment on above: Performed By: #### C BC ####[facility] Vcokcazzio[address] [place] [id number]. Madelynlorri Leal IG % 0.5 % Normal 0.0-0.5 [facility] Comment on above: Performed By: #### C BC ####[facility] [address]efx[address]wv[address] [place] [address]Dr. Farhat Elvis LYMPH # 2.1 103/ul Normal 1.2-3.8 [facility] Comment on above: Performed By: #### C BC ####[facility] Fanqhaelri[address] [place] [address]Dr. Farhat Leal Lymphocytes/100 WBC (Bld) 34.6 % Normal 20.5-60.0 [facility] Comment on above: Performed By: #### C BC ####[facility] Wfhcvznpmf[address] [place], [place] [address]Dr. Madelynlorri Leal MANUAL DIFF REQ NO Normal [facility] Comment on above: Performed By: #### C BC ####[facility] Kqu[address]bhkrz[address] [place] [address]Dr. Farhat Leal MCH (RBC) [Entitic mass] 30.3 pg Normal 25.9-34.0 [facility] Comment on above: Performed By: #### C BC ####[facility] [address] [place] [address]Dr. Farhat Leal MCHC (RBC) [Mass/Vol] 33.1 g/dL Normal 29.9-35.2 [facility] Comment on above: Performed By: #### C BC ####[facility] Ljmdecbynr[address] [place], [place] [address]Dr. Madelynlorri Leal MCV (RBC) [Entitic vol] 91.4 fL Normal 80.0-94.0 [facility] Comment on above: Performed By: #### C BC ####[facility] Qmqovwktil4[address] [place] [id number]. Farhat Leal MONO # 0.7 103/ul Normal 0.3-0.8 [facility] Comment on above: Performed By: #### C BC ####[facility] Teocwewzvs39[address] [place] [id number]. Farhat Leal Monocytes/100 WBC (Bld) 11.6 % Normal 1.7-12.0 [facility] Comment on above: Performed By: #### C BC ####[facility] W[address]iotjtlg[address] [place] [id number]. Farhat Leal NEUT # 2.9 103/ul Normal 1.4-6.5 [facility] Comment on above: Performed By: #### C BC ####[facility] Aidipiizma[address] [place] [id number]. Farhat Leal Neutrophils/100 WBC (Bld) 48.8 % Normal 43.0-75.0 [facility] Comment on above: Performed By: #### C BC ####[facility] Pedeuzxela[address] [place] [id number]. Farhat Leal Platelet mean volume (Bld) [Entitic vol] 10.9 fL Normal 9.5-13.5 [facility] Comment on above: Performed By: #### C BC ####[facility] O[address]ypacr[address] [place] [id number]. Farhat Leal PLT 186 103/ul Normal 150-450 [facility] Comment on above: Performed By: #### C BC ####[facility] Uwwbsyeske9238 [place] [id number]. Farhat Leal RBC 3.73 106/ul Critically low 4.70-6.10 [facility] Comment on above: Performed By: #### C BC ####[facility] Mwlqzpynwr[address]138 [place] [id number]. Farhat Leal WBC 6.0 103/ul Normal 4.0-11.0 [facility] Comment on above: Performed By: #### C BC ####[facility] Ajsmkalmne7096 [place] [phone]. Farhat Leal PROF 14(COMP METB)on 023 Albumin [Mass/Vol] 2.7 g/dL Critically low 3.4-5.0 [facility] Comment on above: Performed By: #### C MP ####[facility] Qwqdpfglin34[address] [place] [address]Dr. Farhat Leal Albumin/Globulin [Mass ratio] 0.8 {ratio} Normal [facility] Comment on above: Performed By: #### C MP ####[facility] Zekmobwsgr[address] [place] [address]Dr. Farhat Leal ALP [Catalytic activity/Vol] 60 U/L Normal 46-116 [facility] [place] Comment on above: Performed By: #### C MP ####[facility] Hfnofcijae[address] [place], [place] [address]Dr. Farhat Leal ALT [Catalytic activity/Vol] 17 U/L Normal 16-63 [facility] Comment on above: Performed By: #### C MP ####[facility] Sovuzunhzj[address] [place], [place] [address]Dr. Farhat Leal Anion gap [Moles/Vol] 9.6 mmol/L Normal [facility] Comment on above: Performed By: #### C MP ####[facility] Biyrmnwuys[address] [place], [place] [address]Dr. Farhat Leal AST [Catalytic activity/Vol] 14 U/L Critically low 15-37 [facility] Comment on above: Performed By: #### C MP ####[facility] Nfkdbovatx266[address] [place], [place] [address]Dr. Farhat Leal Bilirubin [Mass/Vol] 0.5 mg/dL Normal 0.2-1.0 [facility] Comment on above: Performed By: #### C MP ####[facility] Bddvvtnrha[address] [place], [place] [address]Dr. Farhat Leal Calcium [Mass/Vol] 8.4 mg/dL Critically low 8.5-10.1 Th [facility] Comment on above: Performed By: #### C MP ####[facility] Orkcxvjdhw[address] [place] [address]Dr. Farhat Leal Chloride [Moles/Vol] 104 mmol/L Normal 98-107 [facility] Comment on above: Performed By: #### C MP ####[facility] Yriezcbhuj[address] [place], [place] [address]Dr. Madelynlorri Elvis CO2 [Moles/Vol] 27.2 mmol/L Normal 21.0-32.0 [facility] Comment on above: Performed By: #### C MP ####[facility] Ffdhqhlafs[address] [place], [place] [address]Dr. Farhat Leal Creatinine [Mass/Vol] 1.24 mg/dL Normal 0.70-1.30 [facility] Comment on above: Performed By: #### C MP ####[facility] Obqcvtbnnl[address] [place], [place] [address]Dr. Farhat Leal EGFR-AF [place] >60 Normal >=60 [facility] Comment on above: Performed By: #### C MP ####[facility] Gecpoztwbu[address] [place], [place] [address]Dr. Farhat Leal EGFR-NON AF [place] 57 mL/min/1.73m2 Critically low >=60 [facility] Comment on above: Performed By: #### C MP ####[facility] Qcfwuwsojz23[address] [place], [place] [address]Dr. Farhat Leal Globulin (S) [Mass/Vol] 3.3 g/dL Normal [facility] Comment on above: Performed By: #### C MP ####[facility] Odwxtrudqy[address] [place], [place] [address]Dr. Farhat Leal Glucose [Mass/Vol] 275 mg/dL Critically high 74-106 [facility] Comment on above: Performed By: #### C MP ####[facility] Hnacblwxrr275[address] [place], [place] [address]Dr. Farhat Leal Potassium [Moles/Vol] 3.8 mmol/L Normal 3.5-5.1 [facility] Comment on above: Performed By: #### C MP ####[facility] Zaeevotvdh[address] [place], [place] [address]Dr. Farhat Leal Protein [Mass/Vol] 6.0 g/dL Critically low 6.4-8.2 Th e [facility] Comment on above: Performed By: #### C MP ####[facility] Vmgchnrxnb[address] [place], [place] [address]Dr. Farhat Leal Sodium [Moles/Vol] 137 mmol/L Normal 136-145 [facility] Comment on above: Performed By: #### C MP ####[facility] Njbvklwrnw[address] [place], [place] [address]Dr. Farhat Leal Urea nitrogen [Mass/Vol] 54.0 mg/dL Critically high 7.0-18.0 [facility] Comment on above: Performed By: #### C MP ####[facility] Ioenqbpase[address] [place], [place] [address]Dr. Farhat Leal Urea nitrogen/Creatinine [Mass ratio] 43.5 mg/mg Normal [facility] Comment on above: Performed By: #### C MP ####[facility] Stomlfnwyk[address] [place], [place] [address]Dr. Farhat Leal PROTIMEon 05-22-2022 INR Coag (PPP) [Relative time] 2.27 {INR} Normal [facility] Comment on above: Performed By: #### P T ####[facility] Lutkpfemta[address] [place], [place] [address]Dr. Farhat Leal INR GUIDELINES SEE BELOW Normal [facility] Comment on above: Result Comment: MALINA RED INR: 2.0 - 3.0 CONDITIONS NOT LISTED BELOW 2.5 - 3.5 FOR PROSTHETIC HEART VALVE REPLACEMENT 2.5 - 3.5 RECURRENT THROMBOSIS Performed By: #### P T ####[facility] Uitbibgkmk[address] [place], [place] [address]Dr. Farhat Leal PT Coag (PPP) [Time] 23.0 s Critically high 9.0-11.6 [facility] Comment on above: Performed By: #### P T ####[facility] Migzkrorfk[address] [place], [place] [address]Dr. Farhat Leal FK506 (TACROLIMUS) WHOLE BLO ODon 05-19-2022 Tacrolimus (FK506), Blood 7.8 ng/mL Normal 2.0-20.0 [facility] Comment on above: Result Comment: Trou gh (immediately following transplant) 15.0 . Trough (steady state, 2 weeks or more after transplant): 3.0 - 8.0 . Performed by LC-MS/MS technology. Performed By: #### F K506T ####[facility] Mogdpujewx[address] [place], [place] [address]Dr. Farhat Leal CBC AUTO DIFFon 05-15-2022 BASO # 0.0 103/ul Normal 0.0-0.1 [facility] Comment on above: Performed By: #### C BC ####[facility] Zkesqhlont[address] [place], [place] [address]Dr. Farhat Leal Basophils/100 WBC (Bld) 0.4 % Normal 0.2-2.0 [facility] Comment on above: Performed By: #### C BC ####[facility] Czf[address]ajbhh[address] [place], [place] [address]Dr. Farhat Leal EO # 0.2 103/ul Normal 0.0-0.7 [facility] Comment on above: Performed By: #### C BC ####[facility] Hmjpjritxz[address] [place], [place] [address]Dr. Farhat Leal Eosinophils/100 WBC (Bld) 3.0 % Normal 0.9-7.0 [facility] [facility] [place] Comment on above: Performed By: #### C BC ####[facility] Paczaebtcj[address] [place], [place] [address]Dr. Farhat Leal Erythrocyte distribution width (RBC) [Ratio] 15.7 % Critically high 11.0-15.0 [facility] Comment on above: Performed By: #### C BC ####[facility] Fufwmomnis[address] [place], [place] [address]Dr. Farhat Leal Hematocrit (Bld) [Volume fraction] 36.8 % Critically low 42.0-54.0 [facility] [place] Comment on above: Performed By: #### C BC ####[facility] Cavfogpmof[address] [place], [place] [address]Dr. Farhat Leal Hemoglobin (Bld) [Mass/Vol] 12.4 g/dL Critically low 14.0-18.0 [facility] [place] Comment on above: Performed By: #### C BC ####[facility] [address] [place] [address]DrSkylar Leal IG # 0.01 10e3/ul Normal 0.00-0.03 [facility] [place] Comment on above: Performed By: #### C BC ####[facility] Qztanlmnak[address] [place] [address]DrSkylar Leal IG % 0.1 % Normal 0.0-0.5 [facility] [place] Comment on above: Performed By: #### C BC ####[facility] Jjhpofdhqf[address] [place], [place] [address]DrSkylar Leal LYMPH # 2.4 103/ul Normal 1.2-3.8 [facility] Comment on above: Performed By: #### C BC ####[facility] Ukvlxbbtnj[address] [place], [place] [address]DrSkylar Leal Lymphocytes/100 WBC (Bld) 35.6 % Normal 20.5-60.0 [facility] Comment on above: Performed By: #### C BC ####[facility] Qzaluofmdu[address] [place], [place] [address]DrSkylar Leal MANUAL DIFF REQ NO Normal [facility] Comment on above: Performed By: #### C BC ####[facility] Kbrgvxvsyn[address] [place] [address]DrSkylar Leal MCH (RBC) [Entitic mass] 30.1 pg Normal 25.9-34.0 [facility] Comment on above: Performed By: #### C BC ####[facility] Qfbundrhhx[address] [place] [address]DrSkylar Leal MCHC (RBC) [Mass/Vol] 33.7 g/dL Normal 29.9-35.2 [facility] Comment on above: Performed By: #### C BC ####[facility] [address] [place] [address]DrSkylar Leal MCV (RBC) [Entitic vol] 89.3 fL Normal 80.0-94.0 [facility] Comment on above: Performed By: #### C BC ####[facility] Vbvxsdiqah[address] [place] [address]DrSkylar Farhat Elvis MONO # 0.7 103/ul Normal 0.3-0.8 [facility] Comment on above: Performed By: #### C BC ####[facility] Gqlszyyhii44[address] [place] [address]DrSkylar Leal Monocytes/100 WBC (Bld) 10.8 % Normal 1.7-12.0 [facility] Comment on above: Performed By: #### C BC ####[facility] Lssdwsumoy[address] [place] [address]Dr. Madelynlorri Leal NEUT # 3.4 103/ul Normal 1.4-6.5 [facility] Comment on above: Performed By: #### C BC ####[facility] Mupdpeuezw[address] [place] [address]Dr. Farhat Leal Neutrophils/100 WBC (Bld) 50.1 % Normal 43.0-75.0 [facility] Comment on above: Performed By: #### C BC ####[facility] Oaqjbtizyx[address] [place], [place] [address]DrSkylar Madelynlorri Leal Platelet mean volume (Bld) [Entitic vol] 10.2 fL Normal 9.5-13.5 [facility] Comment on above: Performed By: #### C BC ####[facility] Lknaxieoon[address] [place], [place] [id number]. Farhat Leal PLT 190 103/ul Normal 150-450 [facility] Comment on above: Performed By: #### C BC ####[facility] Lghgdleyec9[address] [place], [place] [id number] Leal RBC 4.12 106/ul Critically low 4.70-6.10 [facility] Comment on above: Performed By: #### C BC ####[facility] [address]secqkcf8[address] [place] [id number] Leal WBC 6.8 103/ul Normal 4.0-11.0 [facility] Comment on above: Performed By: #### C BC ####[facility] Shyks[address]cjh[address] [place] [address]DrSkylar Leal PROF 14(COMP METB)on 023 Albumin [Mass/Vol] 2.8 g/dL Critically low 3.4-5.0 [facility] Comment on above: Performed By: #### C MP ####[facility] Ryucdfnjgl[address] [place] [address]DrSkylar Leal Albumin/Globulin [Mass ratio] 0.9 {ratio} Normal [facility] [place] Comment on above: Performed By: #### C MP ####[facility] Yiqohbwtok[address] [place], [place] [address]Dr. Farhat Leal ALP [Catalytic activity/Vol] 66 U/L Normal 46-116 [facility] [place] Comment on above: Performed By: #### C MP ####[facility] Aatrtyxxpx[address] [place], [place] [address]Dr. Farhat Leal ALT [Catalytic activity/Vol] 15 U/L Critically low 16-63 [facility] [place] Comment on above: Performed By: #### C MP ####[facility] Rbbpbyydtd[address] [place], [place] [address]DrSkylar Leal Anion gap [Moles/Vol] 11.1 mmol/L Normal [facility] Comment on above: Performed By: #### C MP ####[facility] Buezguzybr[address] [place], [place] [address]DrSkylar Leal AST [Catalytic activity/Vol] 14 U/L Critically low 15-37 [facility] [place] Comment on above: Performed By: #### C MP ####[facility] Blnzfeptni[address] [place] [address]DrSkylar Leal Bilirubin [Mass/Vol] 0.8 mg/dL Normal 0.2-1.0 [facility] [place] Comment on above: Performed By: #### C MP ####[facility] Ogrufhxzim[address] [place] [address]DrSkylar Leal Calcium [Mass/Vol] 8.9 mg/dL Normal 8.5-10.1 [facility] Comment on above: Performed By: #### C MP ####[facility] Runegjesjf[address] [place] [address]Dr. Farhat Leal Chloride [Moles/Vol] 101 mmol/L Normal 98-107 [facility] [place] Comment on above: Performed By: #### C MP ####[facility] Stxjxtuuyt40[address] [place] [id number]. Farhat Leal CO2 [Moles/Vol] 28.2 mmol/L Normal 21.0-32.0 [facility] Comment on above: Performed By: #### C MP ####[facility] Pmyuifospi[address] [place] [address]Dr. Farhat Leal Creatinine [Mass/Vol] 1.23 mg/dL Normal 0.70-1.30 [facility] [place] Comment on above: Performed By: #### C MP ####[facility] Vgtzewfawz[address] [place] [address]Dr. Farhat Leal EGFR-AF [place] >60 Normal >=60 [facility] Comment on above: Performed By: #### C MP ####[facility] Mymfhsrpql[address] [place] [address]Dr. Farhat Leal EGFR-NON AF [place] 57 mL/min/1.73m2 Critically low >=60 [facility] [place] Comment on above: Performed By: #### C MP ####[facility] Nkylnpkuuy[address] [place] [address]Dr. Farhat Leal Globulin (S) [Mass/Vol] 3.2 g/dL Normal [facility] [place] Comment on above: Performed By: #### C MP ####[facility] [address]hfv[address] [place] [id number]. Farhat Leal Glucose [Mass/Vol] 333 mg/dL Critically high 74-106 T [facility] Comment on above: Performed By: #### C MP ####[facility] Bpkebwsdyo[address] [place] [address]Dr. Farhat Leal Potassium [Moles/Vol] 4.3 mmol/L Normal 3.5-5.1 [facility] [place] Comment on above: Performed By: #### C MP ####[facility] Xdziwrlcik[address] [place] [address]Dr. Farhat Leal Protein [Mass/Vol] 6.0 g/dL Critically low 6.4-8.2 Th e [facility] Comment on above: Performed By: #### C MP ####[facility] Zz[address]rwe[address] [place] [address]Dr. Farhat Leal Sodium [Moles/Vol] 136 mmol/L Normal 136-145 [facility] Comment on above: Performed By: #### C MP ####[facility] Pnqzggawjt[address] [place], [place] [address]Dr. Farhat Leal Urea nitrogen [Mass/Vol] 58.0 mg/dL Critically high 7.0-18.0 [facility] [place] Comment on above: Performed By: #### C MP ####[facility] Fjgsegpzmi[address] [place], [place] [address]Dr. Farhat Leal Urea nitrogen/Creatinine [Mass ratio] 47.2 mg/mg Normal [facility] [place] Comment on above: Performed By: #### C MP ####[facility] Cpilombsyr[address] [place], [place] [address]Dr. Farhat Leal PROTIMEon 05-13-2022 INR Coag (PPP) [Relative time] 3.51 {INR} Normal [facility] [place] Comment on above: Performed By: #### P T ####[facility] Izrfsysvfr[address] [place], [place] [address]Dr. Farhat Leal INR GUIDELINES SEE BELOW Normal [facility] Comment on above: Result Comment: MALINA RED INR: 2.0 - 3.0 CONDITIONS NOT LISTED BELOW 2.5 - 3.5 FOR PROSTHETIC HEART VALVE REPLACEMENT 2.5 - 3.5 RECURRENT THROMBOSIS Performed By: #### P T ####[facility] Hnwucyrshc[address] [place], [place] [address]Dr. Farhat Leal PT Coag (PPP) [Time] 34.7 s Critically high 9.0-11.6 [facility] [place] Comment on above: Performed By: #### P T ####[facility] Tqthsbqipk[address] [place], [place] [address]Dr. Farhat Leal FK506 (TACROLIMUS) WHOLE BLO ODon 05-11-2022 Tacrolimus (FK506), Blood 14.4 ng/mL Normal 2.0-20.0 [facility] [place] Comment on above: Result Comment: Trou gh (immediately following transplant) 15.0 . Trough (steady state, 2 weeks or more after transplant): 3.0 - 8.0 . Performed by LC-MS/MS technology. Performed By: #### F K506T ####[facility] Zzblrjisam[address] [place], [place] [address]Dr. Farhat Leal CBC AUTO DIFFon 05-08-2022 BASO # 0.0 103/ul Normal 0.0-0.1 [facility] [place] Comment on above: Performed By: #### C BC ####[facility] Biajgmsoss[address] [place], [place] [address]Dr. Farhat Leal Basophils/100 WBC (Bld) 0.5 % Normal 0.2-2.0 [facility] Comment on above: Performed By: #### C BC ####[facility] Qznwxmlhze264[address] [place], [place] [address]Dr. Farhat Leal EO # 0.2 103/ul Normal 0.0-0.7 [facility] Comment on above: Performed By: #### C BC ####[facility] Kaxkkwospc[address] [place], [place] [address]Dr. Farhat Leal Eosinophils/100 WBC (Bld) 2.9 % Normal 0.9-7.0 [facility] Comment on above: Performed By: #### C BC ####[facility] Iukhepboss8[address] [place], [place] [address]Dr. Farhat Leal Erythrocyte distribution width (RBC) [Ratio] 16.0 % Critically high 11.0-15.0 [facility] Comment on above: Performed By: #### C BC ####[facility] Lmgpnmtnzz[address] [place], [place] [address]Dr. Farhat Leal Hematocrit (Bld) [Volume fraction] 35.7 % Critically low 42.0-54.0 [facility] Comment on above: Performed By: #### C BC ####[facility] [address]accvpvqpo9355 [place] [phone]. Farhat Leal Hemoglobin (Bld) [Mass/Vol] 11.9 g/dL Critically low 14.0-18.0 [facility] [place] Comment on above: Performed By: #### C BC ####[facility] [address]ujspg[address] [place] [phone]. Farhat Leal IG # 0.03 10e3/ul Normal 0.00-0.03 [facility] Comment on above: Performed By: #### C BC ####[facility] Zvzormsqwt8480 [place] [id number]. Farhat Leal IG % 0.5 % Normal 0.0-0.5 [facility] [place] Comment on above: Performed By: #### C BC ####[facility] Yqt[address]tzuqt[address] [place] [address]Dr. Farhat Leal LYMPH # 2.4 103/ul Normal 1.2-3.8 [facility] Comment on above: Performed By: #### C BC ####[facility] Xvcanookmi3322 [place] [phone]. Farhat Leal Lymphocytes/100 WBC (Bld) 37.8 % Normal 20.5-60.0 [facility] Comment on above: Performed By: #### C BC ####[facility] [address]adw49[address] [place] [id number]. Farhat Leal MANUAL DIFF REQ NO Normal [facility] Comment on above: Performed By: #### C BC ####[facility] Em[address]vfzehed[address] [place], [place] [id number]. Farhat Leal MCH (RBC) [Entitic mass] 30.4 pg Normal 25.9-34.0 [facility] Comment on above: Performed By: #### C BC ####[facility] Gggyohexlx1608 [place] [phone]. Farhat Leal MCHC (RBC) [Mass/Vol] 33.3 g/dL Normal 29.9-35.2 [facility] Comment on above: Performed By: #### C BC ####[facility] Vuvybkkuxg[address] [place] [phone]. Farhat Leal MCV (RBC) [Entitic vol] 91.1 fL Normal 80.0-94.0 [facility] Comment on above: Performed By: #### C BC ####[facility] Ngwdssicdd1092 [place] [phone]. Farhat Leal MONO # 0.7 103/ul Normal 0.3-0.8 [facility] Comment on above: Performed By: #### C BC ####[facility] Hlqruiatxo4107 [place] [phone]. Farhat Leal Monocytes/100 WBC (Bld) 11.1 % Normal 1.7-12.0 [facility] Comment on above: Performed By: #### C BC ####[facility] Odqufgiqoc[address] [place], [place] [address]Dr. Farhat Leal NEUT # 2.9 103/ul Normal 1.4-6.5 [facility] Comment on above: Performed By: #### C BC ####[facility] [address]vmsfyji[address] [place], [place] [id number]. Farhat Leal Neutrophils/100 WBC (Bld) 47.2 % Normal 43.0-75.0 [facility] Comment on above: Performed By: #### C BC ####[facility] Ribndhcgzg11[address] [place], [place] [address]Dr. Farhat Leal Platelet mean volume (Bld) [Entitic vol] 11.0 fL Normal 9.5-13.5 [facility] Comment on above: Performed By: #### C BC ####[facility] Egihatslla[address] [place], [place] [address]Dr. Farhat Leal PLT 191 103/ul Normal 150-450 [facility] Comment on above: Performed By: #### C BC ####[facility] Zfjwcptoqx7[address] [place], [place] [address]Dr. Farhat Leal RBC 3.92 106/ul Critically low 4.70-6.10 [facility] Comment on above: Performed By: #### C BC ####[facility] Hzlfhobkml39[address] [place] [address]Dr. Farhat Leal WBC 6.2 103/ul Normal 4.0-11.0 [facility] [place] Comment on above: Performed By: #### C BC ####[facility] W[address]jvrfbu[address] [place] [address]Dr. Farhat Leal MAGNESIUMon 05-08-2022 Magnesium [Mass/Vol] 1.9 mg/dL Normal 1.8-2.4 [facility] [place] Comment on above: Performed By: #### P HOS, MG ####[facility] Ffmizlmsou[address] [place] [address]Dr. Farhat Leal PHOSPHORUSon 05-08-2022 Phosphate [Mass/Vol] 4.5 mg/dL Normal 2.6-4.7 [facility] [place] Comment on above: Performed By: #### P HOS, MG ####[facility] Wijqqsknym[address] [place], [place] [address]Dr. Farhat Leal PROF 14(COMP METB)on 023 Albumin [Mass/Vol] 2.9 g/dL Critically low 3.4-5.0 [facility] Comment on above: Performed By: #### C MP ####[facility] Jajorsjbza[address] [place], [place] [address]Dr. Farhat Leal Albumin/Globulin [Mass ratio] 0.9 {ratio} Normal [facility] [place] Comment on above: Performed By: #### C MP ####[facility] Kbxwvgksmt[address] [place], [place] [address]Dr. Farhat Leal ALP [Catalytic activity/Vol] 70 U/L Normal 46-116 [facility] Comment on above: Performed By: #### C MP ####[facility] Tygiojkipz[address] [place] [address]Dr. Farhat Leal ALT [Catalytic activity/Vol] 13 U/L Critically low 16-63 [facility] [place] Comment on above: Performed By: #### C MP ####[facility] [address]auf[address] [place] [address]Dr. Farhat Leal Anion gap [Moles/Vol] 14.6 mmol/L Normal [facility] Comment on above: Performed By: #### C MP ####[facility] Yoklvdaigt[address] [place] [address]Dr. Farhat Leal AST [Catalytic activity/Vol] 17 U/L Normal 15-37 [facility] [place] Comment on above: Performed By: #### C MP ####[facility] Gbigxctshv2573 [place] [phone]. Farhat Leal Bilirubin [Mass/Vol] 0.8 mg/dL Normal 0.2-1.0 [facility] [place] Comment on above: Performed By: #### C MP ####[facility] Hlvjcvixkc44[address] [place] [address]Dr. Farhat Leal Calcium [Mass/Vol] 8.9 mg/dL Normal 8.5-10.1 [facility] Comment on above: Performed By: #### C MP ####[facility] Wdcxxrwydu[address] [place], [place] [address]Dr. Farhat Leal Chloride [Moles/Vol] 102 mmol/L Normal 98-107 [facility] [place] Comment on above: Performed By: #### C MP ####[facility] Rgitdsaymd[address] [place], [place] [address]Dr. Farhat Leal CO2 [Moles/Vol] 22.9 mmol/L Normal 21.0-32.0 [facility] Comment on above: Performed By: #### C MP ####[facility] Eqtifpdlve92[address] [place], [place] [address]Dr. Farhat Leal Creatinine [Mass/Vol] 1.20 mg/dL Normal 0.70-1.30 [facility] [place] Comment on above: Performed By: #### C MP ####[facility] [address]opbjvmomu[address] [place] [address]Dr. Farhat Leal EGFR-AF [place] >60 Normal >=60 [facility] Comment on above: Performed By: #### C MP ####[facility] I[address]pcvkmzk74[address] [place] [address]Dr. Farhat Leal EGFR-NON AF [place] 59 mL/min/1.73m2 Critically low >=60 [facility] [place] Comment on above: Performed By: #### C MP ####[facility] Bovfxuwklr23[address] [place] [phone]. Farhat Leal Globulin (S) [Mass/Vol] 3.1 g/dL Normal [facility] [place] Comment on above: Performed By: #### C MP ####[facility] Vwvrvlqpzq0548 [place] [phone]. Farhat Leal Glucose [Mass/Vol] 447 mg/dL Critically high 74-106 T [facility] Comment on above: Performed By: #### C MP ####[facility] Juqyfppufs0543 [place] [phone]. Farhat Leal Potassium [Moles/Vol] 4.5 mmol/L Normal 3.5-5.1 [facility] [place] Comment on above: Performed By: #### C MP ####[facility] Qnibddpeuf25[address] [place] [address]Dr. Farhat Leal Protein [Mass/Vol] 6.0 g/dL Critically low 6.4-8.2 [facility] Comment on above: Performed By: #### C MP ####[facility] Oesxukqxyx[address] [place], [place] [address]Dr. Farhat Leal Sodium [Moles/Vol] 135 mmol/L Critically low 136-145 Th [facility] Comment on above: Performed By: #### C MP ####[facility] Xdgtggaxxl3174 [place] [address]Dr. Farhat Leal Urea nitrogen [Mass/Vol] 52.0 mg/dL Critically high 7.0-18.0 [facility] [place] Comment on above: Performed By: #### C MP ####[facility] Rgknlgelek[address] [place] [address]Dr. Farhat Leal Urea nitrogen/Creatinine [Mass ratio] 43.3 mg/mg Normal [facility] [place] Comment on above: Performed By: #### C MP ####[facility] Ewicipyznd[address] [place] [address]Dr. Faraht Elvis PROTIMEon 05-06-2022 INR Coag (PPP) [Relative time] 2.25 {INR} Normal [facility] Comment on above: Performed By: #### P T ####[facility] [address]wnkllgsn[address] [place] [address]DrSkylar Leal INR GUIDELINES SEE BELOW Normal [facility] Comment on above: Result Comment: MALINA RED INR: 2.0 - 3.0 CONDITIONS NOT LISTED BELOW 2.5 - 3.5 FOR PROSTHETIC HEART VALVE REPLACEMENT 2.5 - 3.5 RECURRENT THROMBOSIS Performed By: #### P T ####[facility] Fihniuvrtw[address] [place], [place] [address]Dr. Farhat Leal PT Coag (PPP) [Time] 22.8 s Critically high 9.0-11.6 [facility] Comment on above: Performed By: #### P T ####[facility] Kaifavrseu[address] [place], [place] [address]Dr. Farhat Leal FK506 (TACROLIMUS) WHOLE BLO ODon 05-04-2022 Tacrolimus (FK506), Blood 10.4 ng/mL Normal 2.0-20.0 [facility] [place] Comment on above: Result Comment: Trou gh (immediately following transplant) 15.0 . Trough (steady state, 2 weeks or more after transplant): 3.0 - 8.0 . Performed by LC-MS/MS technology. Performed By: #### F K506T ####[facility] U[address]iyvlggs[address] [place], [place] [address]DrSkylar Leal CBC AUTO DIFFon 05-01-2022 BASO # 0.1 103/ul Normal 0.0-0.1 [facility] Comment on above: Performed By: #### C BC ####[facility] Vyimcypfuc[address] [place], [place] [address]Dr. Farhat Leal Basophils/100 WBC (Bld) 0.7 % Normal 0.2-2.0 [facility] Comment on above: Performed By: #### C BC ####[facility] Qkzrndmmmf[address] [place], [place] [address]Dr. Farhat Leal EO # 0.2 103/ul Normal 0.0-0.7 [facility] Comment on above: Performed By: #### C BC ####[facility] Xslkedrkuf3025 [place] [phone]. Farhat Leal Eosinophils/100 WBC (Bld) 3.2 % Normal 0.9-7.0 [facility] Comment on above: Performed By: #### C BC ####[facility] Lbzneerhij8383 [place] [phone]. Farhat Leal Erythrocyte distribution width (RBC) [Ratio] 16.4 % Critically high 11.0-15.0 [facility] Comment on above: Performed By: #### C BC ####[facility] Jfzhdzwrkq[address] [place], [place] [address]Dr. Farhat Leal Hematocrit (Bld) [Volume fraction] 35.1 % Critically low 42.0-54.0 [facility] Comment on above: Performed By: #### C BC ####[facility] Duplyiiump[address] [place], [place] [address]Dr. Farhat Leal Hemoglobin (Bld) [Mass/Vol] 11.6 g/dL Critically low 14.0-18.0 [facility] [facility] Comment on above: Performed By: #### C BC ####[facility] Mkcthyytpn[address] [place], [place] [address]Dr. Farhat Leal IG # 0.03 10e3/ul Normal 0.00-0.03 [facility] Comment on above: Performed By: #### C BC ####[facility] Uoepymexga[address] [place], [place] [address]Dr. Farhat Leal IG % 0.4 % Normal 0.0-0.5 [facility] Comment on above: Performed By: #### C BC ####[facility] Cgiijvstnm874[address] [place], [place] [address]Dr. Farhat Leal LYMPH # 2.4 103/ul Normal 1.2-3.8 [facility] Comment on above: Performed By: #### C BC ####[facility] Jnmwumpzyr[address] [place], [place] [address]Dr. Farhat Leal Lymphocytes/100 WBC (Bld) 35.1 % Normal 20.5-60.0 [facility] Comment on above: Performed By: #### C BC ####[facility] Snvdwktcoc6424 [place] [id number]. Farhat Leal MANUAL DIFF REQ NO Normal [facility] Comment on above: Performed By: #### C BC ####[facility] Etyhwbutaa1348 [place] [id number]. Farhat Leal MCH (RBC) [Entitic mass] 29.4 pg Normal 25.9-34.0 [facility] Comment on above: Performed By: #### C BC ####[facility] Kixhmkqrmo399[address] [place], [place] [address]Dr. Farhat Leal MCHC (RBC) [Mass/Vol] 33.0 g/dL Normal 29.9-35.2 [facility] Comment on above: Performed By: #### C BC ####[facility] Aqfubtifcu782[address] [place], [place] [address]Dr. Farhat Leal MCV (RBC) [Entitic vol] 88.9 fL Normal 80.0-94.0 [facility] Comment on above: Performed By: #### C BC ####[facility] Wvwlxgcebt82[address] [place], [place] [address]Dr. Farhat Leal MONO # 0.7 103/ul Normal 0.3-0.8 [facility] Comment on above: Performed By: #### C BC ####[facility] Jpobaszjlv[address] [place], [place] [address]Dr. Farhat Elvis Monocytes/100 WBC (Bld) 9.6 % Normal 1.7-12.0 [facility] Comment on above: Performed By: #### C BC ####[facility] Tptyvniibp[address] [place], [place] [address]Dr. Farhat Leal NEUT # 3.5 103/ul Normal 1.4-6.5 [facility] Comment on above: Performed By: #### C BC ####[facility] Ncmpihqigv9537[address] [place], [place] [address]Dr. Farhat Leal Neutrophils/100 WBC (Bld) 51.0 % Normal 43.0-75.0 [facility] Comment on above: Performed By: #### C BC ####[facility] Lecmxwxnno3570 [place] [id number]. Farhat Leal Platelet mean volume (Bld) [Entitic vol] 10.3 fL Normal 9.5-13.5 [facility] Comment on above: Performed By: #### C BC ####[facility] Uuqvkayxay4894 [place] [phone]. Farhat Leal PLT 184 103/ul Normal 150-450 [facility] Comment on above: Performed By: #### C BC ####[facility] Siyqvbatot8420 [place] [phone]. Farhat Leal RBC 3.95 106/ul Critically low 4.70-6.10 [facility] Comment on above: Performed By: #### C BC ####[facility] Edhgqajpdd74[address] [place] [address]Dr. Farhat Leal WBC 7.0 103/ul Normal 4.0-11.0 [facility] Comment on above: Performed By: #### C BC ####[facility] Yyawwtryie14[address] [place] [address]Dr. Farhat Leal PROF 14(COMP METB)on 023 Albumin [Mass/Vol] 2.6 g/dL Critically low 3.4-5.0 [facility] Comment on above: Performed By: #### C MP ####[facility] Hmhopluwme36[address] [place] [address]Dr. Farhat Leal Albumin/Globulin [Mass ratio] 0.9 {ratio} Normal [facility] Comment on above: Performed By: #### C MP ####[facility] Ooseiktcux3[address] [place] [address]Dr. Farhat Leal ALP [Catalytic activity/Vol] 53 U/L Normal 46-116 [facility] Comment on above: Performed By: #### C MP ####[facility] Mkofdsokyo25[address] [place] [address]Dr. Farhat Leal ALT [Catalytic activity/Vol] 17 U/L Normal 16-63 [facility] Comment on above: Performed By: #### C MP ####[facility] Ifetdkvdwr1440 [place] [phone]. Farhat Leal Anion gap [Moles/Vol] 10.0 mmol/L Normal [facility] Comment on above: Performed By: #### C MP ####[facility] Cnydjfqcco2351 [place] [phone]. Farhat Leal AST [Catalytic activity/Vol] 19 U/L Normal 15-37 [facility] Comment on above: Performed By: #### C MP ####[facility] Blacvsaysm4918 [place] [phone]. Farhat Leal Bilirubin [Mass/Vol] 0.5 mg/dL Normal 0.2-1.0 [facility] Comment on above: Performed By: #### C MP ####[facility] Cbrxlrhghn[address] [place], [place] [phone]. Farhat Leal Calcium [Mass/Vol] 8.4 mg/dL Critically low 8.5-10.1 [facility] Comment on above: Performed By: #### C MP ####[facility] Fbayergfpf9541 [place] [phone]. Farhat Leal Chloride [Moles/Vol] 108 mmol/L Critically high 98-107 [facility] Comment on above: Performed By: #### C MP ####[facility] Tignpjhftu[address] [place], [place] [phone]. Farhat Leal CO2 [Moles/Vol] 26.9 mmol/L Normal 21.0-32.0 [facility] Comment on above: Performed By: #### C MP ####[facility] Zjxieuyouw8872 [place] [phone]. Farhat Leal Creatinine [Mass/Vol] 1.20 mg/dL Normal 0.70-1.30 [facility] Comment on above: Performed By: #### C MP ####[facility] Spmyymrfol3139 [place] [phone]. Farhat Leal EGFR-AF [place] >60 Normal >=60 [facility] Comment on above: Performed By: #### C MP ####[facility] Rcrcakdoje4865 [place] [phone]. Farhat Leal EGFR-NON AF [place] 59 mL/min/1.73m2 Critically low >=60 [facility] Comment on above: Performed By: #### C MP ####[facility] Vpbqrtkcoo7124 [place] [address]Dr. Farhat Leal Globulin (S) [Mass/Vol] 3.0 g/dL Normal [facility] Comment on above: Performed By: #### C MP ####[facility] Bfbgdkaiwm2597 [place] [address]Dr. Farhat Leal Glucose [Mass/Vol] 213 mg/dL Critically high 74-106 [facility] Comment on above: Performed By: #### C MP ####[facility] Lgdgobzeer6980 [place] [address]Dr. Farhat Leal Potassium [Moles/Vol] 3.9 mmol/L Normal 3.5-5.1 [facility] Comment on above: Performed By: #### C MP ####[facility] Kphnfrpzeu1697 [place] [address]Dr. Farhat Leal Protein [Mass/Vol] 5.6 g/dL Critically low 6.4-8.2 Th [facility] Comment on above: Performed By: #### C MP ####[facility] Dcumaziisa033[address] [place], [place] [address]Dr. Farhat Leal Sodium [Moles/Vol] 141 mmol/L Normal 136-145 [facility] Comment on above: Performed By: #### C MP ####[facility] Prtdstuydw3344 [place] [address]Dr. Farhat Leal Urea nitrogen [Mass/Vol] 61.0 mg/dL Critically high 7.0-18.0 [facility] Comment on above: Performed By: #### C MP ####[facility] Pcatphlvzs4739 [place] [address]Dr. Farhat Leal Urea nitrogen/Creatinine [Mass ratio] 50.8 mg/mg Normal [facility] Comment on above: Performed By: #### C MP ####[facility] Eazkhxkmki54[address] [place], [place] [address]Dr. Farhat Elvis FK506 (TACROLIMUS) WHOLE BLO ODon 04-27-2022 Tacrolimus (FK506), Blood 16.5 ng/mL Normal 2.0-20.0 [facility] Comment on above: Result Comment: Trou gh (immediately following transplant) 15.0 . Trough (steady state, 2 weeks or more after transplant): 3.0 - 8.0 . Performed by LC-MS/MS technology. Performed By: #### F K506T ####[facility] Jrckgiljvc8077[address] [place], [place] [address]Dr. Farhat Elvis CBC AUTO DIFFon 04-24-2022 BASO # 0.0 103/ul Normal 0.0-0.1 [facility] Comment on above: Performed By: #### C BC ####[facility] Ggejqzkpib6433[address] [place], [place] [address]Dr. Farhat Leal Basophils/100 WBC (Bld) 0.5 % Normal 0.2-2.0 [facility] Comment on above: Performed By: #### C BC ####[facility] Fnpubqatig2735[address] [place], [place] [address]Dr. Farhat Leal EO # 0.2 103/ul Normal 0.0-0.7 [facility] Comment on above: Performed By: #### C BC ####[facility] Wpwlebjdzq3465[address] [place], [place] [address]Dr. Farhat Leal Eosinophils/100 WBC (Bld) 3.1 % Normal 0.9-7.0 [facility] Comment on above: Performed By: #### C BC ####[facility] Bhksunyrbm720[address] [place], [place] [address]Dr. Farhat Leal Erythrocyte distribution width (RBC) [Ratio] 16.3 % Critically high 11.0-15.0 [facility] Comment on above: Performed By: #### C BC ####[facility] Hwpzrjfcpw269[address] [place], [place] [address]Dr. Farhat Leal Hematocrit (Bld) [Volume fraction] 34.0 % Critically low 42.0-54.0 [facility] Comment on above: Performed By: #### C BC ####[facility] Bolwapccut7230 [place] [phone]. Farhat Leal Hemoglobin (Bld) [Mass/Vol] 11.6 g/dL Critically low 14.0-18.0 [facility] Comment on above: Performed By: #### C BC ####[facility] Qjpzmcmyxb[address] [place] [address]Dr. Farhat Leal IG # 0.02 10e3/ul Normal 0.00-0.03 [facility] Comment on above: Performed By: #### C BC ####[facility] Pfucqzjdzj4717[address] [place], [place] [address]Dr. Farhat Leal IG % 0.4 % Normal 0.0-0.5 [facility] Comment on above: Performed By: #### C BC ####[facility] Tkbeqnhnyy3625[address] [place], [place] [address]Dr. Farhat Leal LYMPH # 2.2 103/ul Normal 1.2-3.8 [facility] Comment on above: Performed By: #### C BC ####[facility] Odwrgosfrg27[address] [place], [place] [address]Dr. Farhat Leal Lymphocytes/100 WBC (Bld) 38.8 % Normal 20.5-60.0 [facility] Comment on above: Performed By: #### C BC ####[facility] Tylitjctzp025[address] [place], [place] [address]Dr. Farhat Leal MANUAL DIFF REQ NO Normal [facility] Comment on above: Performed By: #### C BC ####[facility] Glezqbkpvf8225[address] [place], [place] [address]Dr. Farhat Leal MCH (RBC) [Entitic mass] 30.1 pg Normal 25.9-34.0 [facility] Comment on above: Performed By: #### C BC ####[facility] Stdwdrunut[address] [place], [place] [address]Dr. Farhat Leal MCHC (RBC) [Mass/Vol] 34.1 g/dL Normal 29.9-35.2 [facility] Comment on above: Performed By: #### C BC ####[facility] Uwqzgsrbce1052 [place] [phone]. Farhat Leal MCV (RBC) [Entitic vol] 88.1 fL Normal 80.0-94.0 [facility] Comment on above: Performed By: #### C BC ####[facility] Opbpeceebi7375 [place] [phone]. Farhat Leal MONO # 0.6 103/ul Normal 0.3-0.8 [facility] Comment on above: Performed By: #### C BC ####[facility] Xxvtpkeqew2976 [place] [phone]. Farhat Leal Monocytes/100 WBC (Bld) 10.8 % Normal 1.7-12.0 [facility] Comment on above: Performed By: #### C BC ####[facility] Flkrthtgaq[address] [place], [place] [id number]. Farhat Leal NEUT # 2.6 103/ul Normal 1.4-6.5 [facility] Comment on above: Performed By: #### C BC ####[facility] Vcjajsmsyq1164[address] [place], [place] [address]Dr. Farhat Leal Neutrophils/100 WBC (Bld) 46.4 % Normal 43.0-75.0 [facility] Comment on above: Performed By: #### C BC ####[facility] Qmhwysmbcj8628 [place] [phone]. Farhat Leal Platelet mean volume (Bld) [Entitic vol] 10.9 fL Normal 9.5-13.5 [facility] Comment on above: Performed By: #### C BC ####[facility] Lopfoztsqw8619 [place] [phone]. Farhat Leal PLT 159 103/ul Normal 150-450 [facility] Comment on above: Performed By: #### C BC ####[facility] Qfrailpzcf8067 [place] [phone]. Farhat Leal RBC 3.86 106/ul Critically low 4.70-6.10 [facility] Comment on above: Performed By: #### C BC ####[facility] Qbapoqlmow1268 [place] [address]Dr. Farhat Leal WBC 5.6 103/ul Normal 4.0-11.0 [facility] Comment on above: Performed By: #### C BC ####[facility] Wxtvcalyzv9102 [place] [address]DrSkylar Leal PROTIMEon 04-24-2022 INR Coag (PPP) [Relative time] 3.23 {INR} Normal [facility] Comment on above: Performed By: #### P T ####[facility] Kcjjcppagg[address] [place], [place] [address]DrSkylar Leal INR GUIDELINES SEE BELOW Normal [facility] Comment on above: Result Comment: MALINA RED INR: 2.0 - 3.0 CONDITIONS NOT LISTED BELOW 2.5 - 3.5 FOR PROSTHETIC HEART VALVE REPLACEMENT 2.5 - 3.5 RECURRENT THROMBOSIS Performed By: #### P T ####[facility] Vypdydqbnq[address] [place], [place] [address]DrSkylar Leal PT Coag (PPP) [Time] 32.0 s Critically high 9.0-11.6 [facility] Comment on above: Performed By: #### P T ####[facility] Lnuaxnuxrl023[address] [place], [place] [address]DrSkylar Leal FK506 (TACROLIMUS) WHOLE BLO ODon 04-20-2022 Tacrolimus (FK506), Blood 13.9 ng/mL Normal 2.0-20.0 [facility] Comment on above: Result Comment: Trou gh (immediately following transplant) 15.0 . Trough (steady state, 2 weeks or more after transplant): 3.0 - 8.0 . Performed by LC-MS/MS technology. Performed By: #### F K506T ####[facility] Diwsscoanx[address] [place], [place] [address]DrSkylar Leal CBC AUTO DIFFon 04-17-2022 BASO # 0.0 103/ul Normal 0.0-0.1 [facility] Comment on above: Performed By: #### C BC ####[facility] Csywwxfhpz69[address] [place], [place] [address]DrSkylar Leal Basophils/100 WBC (Bld) 0.4 % Normal 0.2-2.0 [facility] Comment on above: Performed By: #### C BC ####[facility] Rbhymsrtub1035[address] [place], [place] [address]Dr. Farhat Leal EO # 0.2 103/ul Normal 0.0-0.7 [facility] Comment on above: Performed By: #### C BC ####[facility] Vujwrtufvo397[address] [place], [place] [address]Dr. Farhat Leal Eosinophils/100 WBC (Bld) 2.8 % Normal 0.9-7.0 [facility] Comment on above: Performed By: #### C BC ####[facility] Dqqbgrlcck37[address] [place], [place] [address]Dr. Farhat Leal Erythrocyte distribution width (RBC) [Ratio] 16.1 % Critically high 11.0-15.0 [facility] Comment on above: Performed By: #### C BC ####[facility] Gerbflsonv9[address] [place], [place] [address]Dr. Farhat Leal Hematocrit (Bld) [Volume fraction] 35.7 % Critically low 42.0-54.0 [facility] Comment on above: Performed By: #### C BC ####[facility] Qncxcqccjl9664[address] [place], [place] [address]Dr. Farhat Leal Hemoglobin (Bld) [Mass/Vol] 12.2 g/dL Critically low 14.0-18.0 [facility] Comment on above: Performed By: #### C BC ####[facility] Lpymfrqsad[address] [place], [place] [address]Dr. Farhat Leal IG # 0.03 10e3/ul Normal 0.00-0.03 [facility] Comment on above: Performed By: #### C BC ####[facility] Coynhsxems[address] [place], [place] [address]Dr. Farhat Leal IG % 0.4 % Normal 0.0-0.5 [facility] Comment on above: Performed By: #### C BC ####[facility] Txferqsylc107[address] [place], [place] [address]Dr. Farhat Leal LYMPH # 2.4 103/ul Normal 1.2-3.8 [facility] Comment on above: Performed By: #### C BC ####[facility] Jwiqiiwsrx5122 [place] [phone]. Madelynlorri Leal Lymphocytes/100 WBC (Bld) 36.1 % Normal 20.5-60.0 [facility] Comment on above: Performed By: #### C BC ####[facility] Ylcymibuoq2047 [place] [address]Dr. Farhat Leal MANUAL DIFF REQ NO Normal [facility] Comment on above: Performed By: #### C BC ####[facility] Hdjgpqxvux4050 [place] [address]Dr. Farhat Leal MCH (RBC) [Entitic mass] 30.3 pg Normal 25.9-34.0 [facility] Comment on above: Performed By: #### C BC ####[facility] Wioqddfbag9033 [place] [address]Dr. Farhat Leal MCHC (RBC) [Mass/Vol] 34.2 g/dL Normal 29.9-35.2 [facility] Comment on above: Performed By: #### C BC ####[facility] Izhcjxhezg5117 [place] [address]Dr. Farhat Leal MCV (RBC) [Entitic vol] 88.6 fL Normal 80.0-94.0 [facility] Comment on above: Performed By: #### C BC ####[facility] Fqamimpqpb2[address] [place] [address]Dr. Farhat Leal MONO # 0.7 103/ul Normal 0.3-0.8 [facility] Comment on above: Performed By: #### C BC ####[facility] Glrrkahexx0675 [place] [address]Dr. Farhat Leal Monocytes/100 WBC (Bld) 10.1 % Normal 1.7-12.0 [facility] Comment on above: Performed By: #### C BC ####[facility] Yapjddhywz13[address] [place] [address]Dr. Farhat Leal NEUT # 3.4 103/ul Normal 1.4-6.5 [facility] Comment on above: Performed By: #### C BC ####[facility] Hyyyvcyhcw4047 [place] [address]Dr. Farhat Leal Neutrophils/100 WBC (Bld) 50.2 % Normal 43.0-75.0 [facility] Comment on above: Performed By: #### C BC ####[facility] Juqbljmrwf6513 [place] [address]Dr. Farhat Elvis Platelet mean volume (Bld) [Entitic vol] 11.8 fL Normal 9.5-13.5 [facility] Comment on above: Performed By: #### C BC ####[facility] Lwxaaxtsra5522 [place] [address]Dr. Farhat Elvis PLT 193 103/ul Normal 150-450 [facility] Comment on above: Performed By: #### C BC ####[facility] Eknznxwbzg8303 [place] [address]Dr. Farhat Elvis RBC 4.03 106/ul Critically low 4.70-6.10 [facility] Comment on above: Performed By: #### C BC ####[facility] Fttmoujclt[address] [place], [place] [address]Dr. Farhat Elvis WBC 6.8 103/ul Normal 4.0-11.0 [facility] Comment on above: Performed By: #### C BC ####[facility] Gwtrxzmkfj172[address] [place], [place] [address]DrSkylar Leal PROF 14(COMP METB)on 023 Albumin [Mass/Vol] 2.9 g/dL Critically low 3.4-5.0 [facility] Comment on above: Performed By: #### C MP ####[facility] Ojkfasrruh62[address] [place], [place] [address]Dr. Farhat Leal Albumin/Globulin [Mass ratio] 0.9 {ratio} Normal [facility] Comment on above: Performed By: #### C MP ####[facility] Xyhrqpbtkb350[address] [place], [place] [address]Dr. Farhat Leal ALP [Catalytic activity/Vol] 67 U/L Normal 46-116 [facility] Comment on above: Performed By: #### C MP ####[facility] Kdesdtebzo15[address] [place] [address]Dr. Farhat Leal ALT [Catalytic activity/Vol] 15 U/L Critically low 16-63 [facility] Comment on above: Performed By: #### C MP ####[facility] Llvqtyosmr4400 [place] [address]Dr. Farhat Elvis Anion gap [Moles/Vol] 10.8 mmol/L Normal Th e [facility] Comment on above: Performed By: #### C MP ####[facility] Uwdpapindz4179 [place] [address]Dr. Farhat Elvis AST [Catalytic activity/Vol] 23 U/L Normal 15-37 [facility] Comment on above: Performed By: #### C MP ####[facility] Ywsmlctclj3067 [place] [address]Dr. Farhat Elvis Bilirubin [Mass/Vol] 0.6 mg/dL Normal 0.2-1.0 [facility] Comment on above: Performed By: #### C MP ####[facility] Ghhtqqlrcm0805 [place] [address]Dr. Farhat Elvis Calcium [Mass/Vol] 8.7 mg/dL Normal 8.5-10.1 [facility] Comment on above: Performed By: #### C MP ####[facility] Veqcbymswd7181 [place] [address]Dr. Farhat Elvis Chloride [Moles/Vol] 105 mmol/L Normal 98-107 [facility] Comment on above: Performed By: #### C MP ####[facility] Ppuholjgyx2354 [place] [address]Dr. Farhat Leal CO2 [Moles/Vol] 29.5 mmol/L Normal 21.0-32.0 [facility] Comment on above: Performed By: #### C MP ####[facility] Dvjfowegdj9043 [place] [address]Dr. Farhat Leal Creatinine [Mass/Vol] 1.37 mg/dL Critically high 0.70-1.30 [facility] Comment on above: Performed By: #### C MP ####[facility] Szwzkhtfpq8377 [place] [id number]. Farhat Elvis EGFR-AF [place] >60 Normal >=60 [facility] Comment on above: Performed By: #### C MP ####[facility] Rskvgnigqf5710 [place] [id number]. Farhat Leal EGFR-NON AF [place] 50 mL/min/1.73m2 Critically low >=60 [facility] [facility] [place] Comment on above: Performed By: #### C MP ####[facility] [address] [place] [address]Dr. Farhat Leal Globulin (S) [Mass/Vol] 3.1 g/dL Normal [facility] [place] Comment on above: Performed By: #### C MP ####[facility] [address] [place] [id number]. Farhat Leal Glucose [Mass/Vol] 203 mg/dL Critically high 74-106 [facility] Comment on above: Performed By: #### C MP ####[facility] [address] [place] [id number]. Farhat Leal Potassium [Moles/Vol] 4.3 mmol/L Normal 3.5-5.1 [facility] [place] Comment on above: Performed By: #### C MP ####[facility] [address] [place] [id number]. Farhat Leal Protein [Mass/Vol] 6.0 g/dL Critically low 6.4-8.2 Th [facility] Comment on above: Performed By: #### C MP ####[facility] [address] [place] [id number]. Farhat Leal Sodium [Moles/Vol] 141 mmol/L Normal 136-145 [facility] Comment on above: Performed By: #### C MP ####[facility] [address] [place] [id number]. Farhat Leal Urea nitrogen [Mass/Vol] 65.0 mg/dL Critically high 7.0-18.0 [facility] [place] Comment on above: Performed By: #### C MP ####[facility] [address] [place] [address]DrSkylar Leal Urea nitrogen/Creatinine [Mass ratio] 47.4 mg/mg Normal [facility] [place] Comment on above: Performed By: #### C MP ####[facility] [address] [place] [id number] Leal PROTIMEon 04-15-2022 INR Coag (PPP) [Relative time] 3.88 {INR} Normal [facility] [place] Comment on above: Performed By: #### P T ####[facility] [address] [place] [address]DrSkylar Leal INR GUIDELINES SEE BELOW Normal [facility] Comment on above: Result Comment: MALINA RED INR: 2.0 - 3.0 CONDITIONS NOT LISTED BELOW 2.5 - 3.5 FOR PROSTHETIC HEART VALVE REPLACEMENT 2.5 - 3.5 RECURRENT THROMBOSIS Performed By: #### P T ####[facility] [address] [place] [id number]. Farhat Leal PT Coag (PPP) [Time] 38.1 s Critically high 9.0-11.6 [facility] [place] Comment on above: Performed By: #### P T ####[facility] [address] [place] [id number]. Farhat Leal Glucose Glucometer (dC) [M ass/Vol]Ordered By: Sadia Aguilar on 04-14-2022 Glucose [Mass/Vol] 162 mg/dL [facility] [place] Comment on above: Random Glucose Refer ence Range is dependent on time and content of last meal. Glucose of more than 200 mg/dL in a nonstressed, ambulatory subject supports the diagnosis of Diabetes Mellitus. Glucose Poct Glucometerson 0 04-14-2022 Commemt1 Glu2: Cleaned Meter Normal [facility] Comment on above: Result Comment: PERF ORMED BY: [facility] [address] [place] [address] PATHOLOGIST DRESS MARKER JOSE F ELLIOTT M.D. Performed By: #### G LULS #### Point of Care testing , Glucose [Mass/Vol] 162 mg/dL Normal [facility] Comment on above: Result Comment: [facility] Glucose Reference Range is dependent on time and content of last meal. Glucose of more than 200 mg/dL in a nonstressed, ambulatory subject supports the diagnosis of Diabetes Mellitus. Performed By: #### G LULS #### Point of Care testing , No Panel InformationOrdered By: Sadia Aguilar on 04-14-2022 Bedside Glucose Comment Glu2: cleaned meter [facility] MAGNESIUMon 04-13-2022 Magnesium [Mass/Vol] 1.7 mg/dL Critically low 1.8-2.4 [facility] [place] Comment on above: Performed By: #### M HENRI Manzo ####[facility] [address] [place] [address]Dr. Farhat Leal PHOSPHORUSon 04-13-2022 Phosphate [Mass/Vol] 4.8 mg/dL Critically high 2.6-4.7 [facility] [place] Comment on above: Performed By: #### M Anais PHOWard ####[facility] [address] [place] [address]Dr. Farhat Leal PROTIMEon 04-13-2022 INR Coag (PPP) [Relative time] 3.16 {INR} Normal [facility] Comment on above: Performed By: #### P T ####[facility] [address] [place] [address]DrSkylar Leal INR GUIDELINES SEE BELOW Normal [facility] Comment on above: Result Comment: MALINA RED INR: 2.0 - 3.0 CONDITIONS NOT LISTED BELOW 2.5 - 3.5 FOR PROSTHETIC HEART VALVE REPLACEMENT 2.5 - 3.5 RECURRENT THROMBOSIS Performed By: #### P T ####[facility] [address] [place] [address]DrSkylar Leal PT Coag (PPP) [Time] 31.4 s Critically high 9.0-11.6 [facility] Comment on above: Performed By: #### P T ####[facility] [address] [place], [place] [address]Rt. Farhat Leal MAGNESIUMon 03-11-2022 Magnesium [Mass/Vol] 1.6 mg/dL Critically low 1.8-2.4 [facility] Comment on above: Performed By: #### M G, PHOS ####[facility] [address] [place], [place] [address]Fq. Farhat Leal PHOSPHORUSon 03-11-2022 Phosphate [Mass/Vol] 5.3 mg/dL Critically high 2.6-4.7 [facility] Comment on above: Performed By: #### M G, PHOS ####[facility] [address] [place] [phone]. 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 Patient on mycophenolate mofetil , cellcept and prednisone Mixed hyperlipidemia due to type 2 diabetes mellitus ([facility]) 11/29/2021 Osteomyelitis ([facility]) 11/29/2021 Paroxysmal atrial fibrillation ([facility]) Renal transplant, status post SA node dysfunction ([facility]) s/p pacemaker Type 2 diabetes mellitus with diabetic neuropathy, with long-term current use of insulin ([facility]) 02/24/2002 PAST SURGICAL HISTORY Procedure Laterality [...] by mouth daily with lunch. Magic Cup Wise with lunch aspirin, enteric coated (ASPIRIN, ENTERIC COATED) 81 mg EC tablet Take 1 tablet by (more content not included)... Normal [facility] PROTIMEon 02-25-2022 INR Coag (PPP) [Relative time] 1.31 {INR} Normal [facility] Comment on above: Performed By: #### P T ####[facility] [address] [place], [place] [address]Dr. Farhat Leal INR GUIDELINES SEE BELOW Normal [facility] Comment on above: Result Comment: MALINA RED INR: 2.0 - 3.0 CONDITIONS NOT LISTED BELOW 2.5 - 3.5 FOR PROSTHETIC HEART VALVE REPLACEMENT 2.5 - 3.5 RECURRENT THROMBOSIS Performed By: #### P T ####[facility] [address] [place], [place] [address]Ex. Farhat Leal PT Coag (PPP) [Time] 13.7 s Critically high 9.0-11.6 [facility] [place] Comment on above: Performed By: #### P T ####[facility] [address] [place], [place] [address]ScSkylar Hassan 02-19-2022 CNPN Telephone (TXCTGL) ALEX ALMONTE ([id number]) 1945 M TRN Date Time Provider Department [...] by mouth daily with lunch. 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 DIABETES UNCOMPL ADULT-UNCONTRLLED [[id number]] 02/24/2002 KIDNEY TRANSPLANT STATUS [Z94.0] 09/07/2003 PROPHYLACTIC IMMUNOTHERAPY [Z29.8] 07/30/2006 PRISON STEROIDS [[id number]] 07/30/2006 VITAMIN D DEFICIENCY NOS [E55.9] 09/07/2008 [...] diabetes mellitus with diabetic peripher*11/29/2021 Atherosclerosis of [place] artery of extremity w*11/29/2021 Malnutrition of moderate degree (HCC) [E44.0] 12/01/2021 Dermatitis associated with moisture [L30.8] 12/04/2021 Encounter Status:Closed by AUGUSTA MEDRANO on 02/19/22 [facility] Sonya 02-18-2022 CNPN Telephone (PODCCP) ALXE ALMONTE ([id number]) 1945 M TRN Date Time Provider Department 02/18/22 DEVON MOREIRA PODCCWilfred During your visit today, we recorded the following information about you: Yumikoev Denise 02/18/2022 3:16 PM Signed Reason for call: Mr. Almonte would like to request a sooner appointment with Dr. Peterson than 04/13/2022. Contact Name (if not the patient) Alex's nurse Home and cell number(Ask for Alex's nurse) [phone] Diagnosis 4 mo f/u wound check Best [...] by mouth daily with lunch. 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 DIABETES UNCOMPL ADULT-UNCONTRLLED [[id number]] 02/24/2002 KIDNEY TRANSPLANT STATUS [Z94.0] 09/07/2003 PROPHYLACTIC IMMUNOTHERAPY [Z29.8] 07/30/2006 E MARKETING SPECIALIST STEROIDS [[id number]] 07/30/2006 VITAMIN D DEFICIENCY NOS [E55.9] 09/07/2008 [...] diabetes mellitus with diabetic peripher*11/29/2021 Atherosclerosis of [place] artery of extremity w*11/29/2021 Malnutrition of moderate degree (HCC) [E44.0] 12/01/2021 Dermatitis associated with moisture [L30.8] 12/04/2021 Encounter Status:Closed by CHEASTY (more content not included)... Normal [facility] CNOVon 02-05-2022 CNOV Office Visit (TXCTGL ) ALEX ALMONTE ([id number]) 1945 M TRN Date Time Provider Department 02/05/22 8:20 AM [facility]IDNEY TXP [facility]INIC TXCTGL During your visit today, we recorded the following information about you: Temperature Pulse Blood pressure 96.7 degrees 79/minute 72/42 Asia Pike MD 02/05/2022 9:38 AM Signed [facility] Urologic and Kidney Helper Transplant Follow up Portions of this note [...] and snacks patient declined. Indra scale at [facility]: 166.2 lbs per patient. Bed sore on coccyx causing discomfort. Being changed regularly at [facility]- reported to be smaller around but still as deep. Patient not very up to date with medications. Patient brought paperwork from [facility] [employer] with all medications being received. Patient unsure if they have been drawing labs regularly. Last Tac from 01/19: 12.9 and K 5.9. In need of current labs. Lab orders will be sent with patient and follows as below: Kidney and Pancreas Transplant Standing Lab Orders [address] [place], [place] [address] February 05, 2022 Alex Almonte 1945 [id number] STANDARD TESTING: Diagnosis Codes: Z94.0 Kidney Transplant [...] AT YOUR LABORATORY FACILITY AND FAX TO [phone]. PLEASE CALL [phone]. Provider: Dr. Pike Current Outpatient Medications Medication [...] 237 (more content not included)... Normal [facility] PROTEIN CREATININE RATIOon 1 04-08-2021 Protein/Creatinine (U) [Mass ratio] 0.10 mg/mg <0.15 mg/mg [facility] PROTIMEon 02-05-2022 INR Coag (PPP) [Relative time] 2.90 {INR} Normal [facility] [place] Comment on above: Performed By: #### P T ####[facility] [address] [place] [address]Dr. Farhat Leal INR GUIDELINES SEE BELOW Normal [facility] Comment on above: Result Comment: MALINA RED INR: 2.0 - 3.0 CONDITIONS NOT LISTED BELOW 2.5 - 3.5 FOR PROSTHETIC HEART VALVE REPLACEMENT 2.5 - 3.5 RECURRENT THROMBOSIS Performed By: #### P T ####[facility] [address] [place], [place] [address]Pw. Farhat Leal PT Coag (PPP) [Time] 29.2 s Critically high 9.0-11.6 [facility] Comment on above: Performed By: #### P T ####[facility] [address] [place] [id number]. Farhat Leal Prot/Creat Uron 02-05-2022 Protein/Creatinine (U) [Mass ratio] 0.10 mg/mg Normal <0.15 [facility] Comment on above: Order Comment: Speci men Type: URINE SPECIMENOrdering Facility: [facility] Address: [address] [place] [address] Result Comment: Adul t Proteinuria Categories: <0.15 mg/mg is considered normal to mildly increased 0.15 - 0.50 mg/mg is considered moderately increased >0.50 mg/mg is considered severely increased KDIGO. (2013). KDIGO 2012 Clinical Practice Guideline for the Evaluation and Management of Chronic Kidney Disease. Official Journal of the International Society of Nephrology, 3(1), 1-150. Performed By: #### 2 890-2 ####[facility] LABCLIA [id number] [place] [address] [place] [facility] Protein/Creatinine (U) [Mass ratio]on 02-05-2022 Creatinine (U) [Mass/Vol] 86.9 mg/dL 20.0 - 300.0 mg/dL [facility] Protein (U) [Mass/Vol] 9 mg/dL 0 - 20 mg/dL [facility] Creatinine (U) [Mass/Vol] 86.9 mg/dL Normal 20.0-300.0 [facility] Comment on above: Order Comment: Speci men Type: URINE SPECIMENOrdering Facility: [facility] Address: [address] [place], [place] [address] Performed By: #### 2 890-2 ####[facility] LABCLIA [id number] [place] [id number] [place] Protein (U) [Mass/Vol] 9 mg/dL Normal 0-20 Cl [facility] Comment on above: Order Comment: Speci men Type: URINE SPECIMENOrdering Facility: [facility] Address: [address] [place] [address] Performed By: #### 2 890-2 ####[facility] LABCLIA [id number] [place] [address] [place] URINALYSIS, DIPSTICK ONLYon 02-05-2022 Bilirubin Ql (U) Negative Normal Negative [facility] Comment on above: Order Comment: Speci men Type: URINE SPECIMEN Ordering Facility: [facility] Address: [address] [place] [address] Performed By: #### U A #### [facility] CLIA [id number] [address] [place] [address] [place] Clarity (Unsp spec) Clear Normal Clear [facility] Comment on above: Order Comment: Speci men Type: URINE SPECIMEN Ordering Facility: [facility] Address: [address] [place] [address] Performed By: #### U A #### [facility] CLIA [id number] [facility] [address] STATES OF [facility] Color (U) Yellow Normal Yellow [facility] Comment on above: Order Comment: Speci men Type: URINE SPECIMEN Ordering Facility: [facility] Address: [address] [place], [place] [address] Performed By: #### U A #### [facility] CLIA [id number] [facility] [place] [address] [place] Glucose Test strip (U) [Mass/Vol] 3+ Abnormal Trace, Negative [facility] Comment on above: Order Comment: Speci men Type: URINE SPECIMEN Ordering Facility: [facility] Address: [address] [place] [address] Performed By: #### U A #### [facility] CLIA [id number] [address] [place] [address] [place] Hemoglobin Ql (U) Negative Normal Negative, Trace [facility] Comment on above: Order Comment: Speci men Type: URINE SPECIMEN Ordering Facility: [facility] Address: [address] [place] [address] Performed By: #### U A #### [facility] CLIA [id number] [address] [place] [address] [place] Ketones Ql (U) Trace Normal Negative, Trace [facility] Comment on above: Order Comment: Speci men Type: URINE SPECIMEN Ordering Facility: [facility] Address: [address] [place] [address] Performed By: #### U A #### [facility] CLIA [id number] [address] [place] [address] [place] Leukocyte esterase Test strip Ql (U) Negative Normal Negative, 25 Loraine/mL [facility] Comment on above: Order Comment: Speci men Type: URINE SPECIMEN Ordering Facility: [facility] Address: [address] [place] [address] Performed By: #### U A #### [facility] CLIA [id number] [address] [place] [address] [place] Nitrite Ql (U) Negative Normal Negative [facility] Comment on above: Order Comment: Speci men Type: URINE SPECIMEN Ordering Facility: [facility] Address: [address] [place] [address] Performed By: #### U A #### [facility] CLIA [id number] [address] [place] [address] [place] pH (U) 5.5 [pH] Normal 5.0-8.0 [facility] Comment on above: Order Comment: Speci men Type: URINE SPECIMEN Ordering Facility: [facility] Address: [address] [place], [place] [address] Performed By: #### U A #### [facility] CLIA [id number] [address] [place] [address] [place] Protein (U) [Mass/Vol] Negative Normal Trace , Negative [facility] Comment on above: Order Comment: Speci men Type: URINE SPECIMEN Ordering Facility: [facility] Address: [address] [place] [address] Performed By: #### U A #### [facility] CLIA [id number] [address] [place] [address] [place] Specific gravity (U) [Rel density] 1.014 Normal 1.005-1.030 [facility] Comment on above: Order Comment: Speci men Type: URINE SPECIMEN Ordering Facility: [facility] Address: [address] [place] [address] Performed By: #### U A #### [facility] CLIA [id number] [address] [place] [address] [place] Urobilinogen Ql (U) 1+ Abnormal Negative [facility] Comment on above: Order Comment: Speci men Type: URINE SPECIMEN Ordering Facility: [facility] Address: [address] [place] [address] Performed By: #### U A #### [facility] CLIA [id number] [address] [place] [address] [place] Bilirubin Ql (U) Negative Negative [facility] Clarity (Unsp spec) Clear Clear [facility] Color (U) Yellow Yellow [facility] Glucose Test strip (U) [Mass/Vol] 3+ Abnormal Trace, Negative [facility] Hemoglobin Ql (U) Negative Negative, Trace [facility] Ketones Ql (U) Trace Negative, Trace [facility] Leukocyte esterase Test strip Ql (U) Negative Negative, 25 Loraine/mL [facility] Nitrite Ql (U) Negative Negative [facility] pH (U) 5.5 [pH] 5.0 - 8.0 [facility] Protein (U) [Mass/Vol] Negative Trace , Negative [facility] Specific gravity (U) [Rel density] 1.014 1.005 - 1.030 [facility] Urobilinogen Ql (U) 1+ Abnormal Negative [facility] FK506 (TACROLIMUS) WHOLE BLO ODon 01-29-2022 Tacrolimus (FK506), Blood 11.1 ng/mL Normal 2.0-20.0 [facility] [place] Comment on above: Result Comment: Trou gh (immediately following transplant) 15.0 . Trough (steady state, 2 weeks or more after transplant): 3.0 - 8.0 . Performed by LC-MS/MS technology. Performed By: #### F K506T ####[facility] [address] [place], [place] [address]Dr. Farhat Leal PHOSPHORUSon 01-26-2022 Phosphate [Mass/Vol] 4.1 mg/dL Normal 2.6-4.7 [facility] [place] Comment on above: Performed By: #### C CARA PHOS ####[facility] [address] [place], [place] [address]Dr. Farhat Leal PROF 14(COMP METB)on 022 Albumin [Mass/Vol] 2.1 g/dL Critically low 3.4-5.0 [facility] Comment on above: Performed By: #### C CARA, PHOS ####[facility] [address] [place], [place] [address]Dr. Farhat Leal Albumin/Globulin [Mass ratio] 0.6 {ratio} Normal [facility] [place] Comment on above: Performed By: #### C CARA, PHOS ####[facility] [address] [place], [place] [address]Dr. Farhat Leal ALP [Catalytic activity/Vol] 89 U/L Normal 46-116 [facility] Comment on above: Performed By: #### C CARA, PHOS ####[facility] [address] [place], [place] [address]Dr. Farhat Leal ALT [Catalytic activity/Vol] 27 U/L Normal 16-63 [facility] [place] Comment on above: Performed By: #### C CARA, PHOS ####[facility] [address] [place], [place] [address]Dr. Farhat Leal Anion gap [Moles/Vol] 12.3 mmol/L Normal [facility] Comment on above: Performed By: #### C CARA, PHOS ####[facility] [address] [place], [place] [address]Dr. Farhat Leal AST [Catalytic activity/Vol] 53 U/L Critically high 15-37 [facility] Comment on above: Performed By: #### C MP, PHOS ####[facility] [address] [place], [place] [address]Dr. Farhat Leal Bilirubin [Mass/Vol] 0.6 mg/dL Normal 0.2-1.0 [facility] [place] Comment on above: Performed By: #### C CARA, PHOS ####[facility] [address] [place], [place] [address]Dr. Farhat Leal Calcium [Mass/Vol] 8.0 mg/dL Critically low 8.5-10.1 [facility] Comment on above: Performed By: #### C CARA, PHOS ####[facility] [address] [place], [place] [address]Dr. Farhat Leal Chloride [Moles/Vol] 97 mmol/L Critically low 98-107 [facility] [place] Comment on above: Performed By: #### C CARA, PHOS ####[facility] [address] [place], [place] [address]Dr. Farhat Leal CO2 [Moles/Vol] 26.6 mmol/L Normal 21.0-32.0 [facility] Comment on above: Performed By: #### C CARA, PHOS ####[facility] [address] [place], [place] [address]Dr. Farhat Leal Creatinine [Mass/Vol] 1.03 mg/dL Normal 0.70-1.30 [facility] Comment on above: Performed By: #### C CARA, PHOS ####[facility] [address] [place], [place] [address]Dr. Farhat Leal EGFR-AF [place]IZ[place] >60 Normal >=60 [facility] Comment on above: Performed By: #### C CARA, PHOS ####[facility] [address] [place] [address]Dr. Farhat Leal EGFR-NON AF [place]IZ[place] >60 Normal >=60 [facility] [place] Comment on above: Performed By: #### C MP, PHOS ####[facility] [address] [place] [address]Dr. Farhat Leal Globulin (S) [Mass/Vol] 3.7 g/dL Normal [facility] [place] Comment on above: Performed By: #### C MP, PHOS ####[facility] [address] [place] [address]Dr. Farhat Leal Glucose [Mass/Vol] 287 mg/dL Critically high 74-106 T [facility] Comment on above: Performed By: #### C CARA, PHOS ####[facility] [address] [place] [address]Dr. Farhat Leal Potassium [Moles/Vol] 3.9 mmol/L Normal 3.5-5.1 [facility] [place] Comment on above: Performed By: #### C CARA, PHOS ####[facility] [address] [place] [address]Dr. Farhat Leal Protein [Mass/Vol] 5.8 g/dL Critically low 6.4-8.2 Th [facility] Comment on above: Performed By: #### C CARA, PHOS ####[facility] [address]ks[address] [place] [address]Dr. Farhat Leal Sodium [Moles/Vol] 132 mmol/L Critically low 136-145 Th [facility] Comment on above: Performed By: #### C CARA, PHOS ####[facility] [address] [place] [address]Dr. Farhat Leal Urea nitrogen [Mass/Vol] 23.0 mg/dL Critically high 7.0-18.0 [facility] [place] Comment on above: Performed By: #### C CARA, PHOS ####[facility] Z[address]xral[address] [place] [address]Dr. Farhat Leal Urea nitrogen/Creatinine [Mass ratio] 22.3 mg/mg Normal [facility] Comment on above: Performed By: #### C MP, PHOS ####[facility] [address] [place] [id number]. Farhat Leal FK506 (TACROLIMUS) WHOLE BLO ODon 01-21-2022 Tacrolimus (FK506), Blood 12.2 ng/mL Normal 2.0-20.0 [facility] [place] Comment on above: Result Comment: Trou gh (immediately following transplant) 15.0 . Trough (steady state, 2 weeks or more after transplant): 3.0 - 8.0 . Performed by LC-MS/MS technology. Performed By: #### F K506T ####[facility] [address] [place] [phone]. Farhat Leal ACID FAST SMEAR AND CXon Acid Fast Culture Negative Normal [facility] Comment on above: Result Comment: No a abdiel fast bacilli isolated after 6 weeks. Performed By: #### A FB ####[facility] [address] [place] [phone]. Farhat Leal Acid Fast Smear Negative Normal [facility] Comment on above: Performed By: #### A FB ####[facility] [address] [place] [address]Dr. Farhat Leal [employer] Specimen Processing Tissue Grinding Normal [facility] [place] Comment on above: Performed By: #### A FB ####[facility] Ugxisoozam[address] [place] [phone]. Farhat Leal [facility] 01-20-2022 DIAMANTEN Telephone (KIMBERLY) ALEX ALMONTE ([id number]) 1945 M [facility] Date Time Provider Department 01/20/22 VAN OLIVAREZ During your visit today, we recorded the following information about you: Van Olivarez APRN.CNP 01/20/2022 1:14 PM Signed Labs noted from yesterday. Pt is currently residing at [facility], I spoke with the Nurse, [...] by mouth daily with lunch. 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 Atherosclerosis of [place] artery of extremity w*11/29/2021 Malnutrition of moderate degree (HCC) [E44.0] 12/01/2021 Dermatitis associated with moisture [L30.8] 12/04/2021 Encounter Status:Closed by VAN OLIVAREZ on 01/20/22 Normal [facility] Orders Onlyon 01-20-2022 Orders Only [id number] Alex Almonte 1945 Date Provider Department Center 01/20/2022 Francisco Javier-SUSIE HERNANDES [facility] No family history on file Normal [facility] PROF 14(COMP METB)on 022 Albumin [Mass/Vol] 1.9 g/dL Critically low 3.4-5.0 Th [facility] Comment on above: Performed By: #### C MP ####[facility] [address]lsrj[address] [place] [address]DrSkylar Leal Albumin/Globulin [Mass ratio] 0.5 {ratio} Normal [facility] [place] Comment on above: Performed By: #### C MP ####[facility] Te[address]kw[address] [place] [address]DrSkylar Leal ALP [Catalytic activity/Vol] 78 U/L Normal 46-116 [facility] [place] Comment on above: Performed By: #### C MP ####[facility] Jaondyisvq[address] [place] [address]DrSkylar Leal ALT [Catalytic activity/Vol] 22 U/L Normal 16-63 [facility] [place] Comment on above: Performed By: #### C MP ####[facility] [address]bi[address] [place] [address]Dr. Farhat Leal Anion gap [Moles/Vol] 8.0 mmol/L Normal [facility] [place] Comment on above: Performed By: #### C MP ####[facility] Biirtbvddp[address] [place] [address]Dr. Farhat Leal AST [Catalytic activity/Vol] 92 U/L Critically high 15-37 [facility] [place] Comment on above: Performed By: #### C MP ####[facility] Oqk[address]idlf[address] [place], [place] [address]Dr. Farhat Leal Bilirubin [Mass/Vol] 0.7 mg/dL Normal 0.2-1.0 [facility] [place] Comment on above: Performed By: #### C MP ####[facility] Guqvbujfck[address] [place], [place] [address]Dr. Farhat Leal Calcium [Mass/Vol] 7.8 mg/dL Critically low 8.5-10.1 Th [facility] Comment on above: Performed By: #### C MP ####[facility] Dwovneqxmt[address] [place], [place] [address]Dr. Farhat Leal Chloride [Moles/Vol] 99 mmol/L Normal 98-107 [facility] [place] Comment on above: Performed By: #### C MP ####[facility] Cauhkucobw[address] [place], [place] [address]Dr. Farhat Leal CO2 [Moles/Vol] 30.9 mmol/L Normal 21.0-32.0 [facility] Comment on above: Performed By: #### C MP ####[facility] Avtscwuczy[address] [place], [place] [address]Dr. Farhat Leal Creatinine [Mass/Vol] 0.95 mg/dL Normal 0.70-1.30 [facility] [place] Comment on above: Performed By: #### C MP ####[facility] Zdtyyvyldn[address] [place], [place] [address]Dr. Madelynlorri Elvis EGFR-AF [place] CITIZ[place] >60 Normal >=60 [facility] Comment on above: Performed By: #### C MP ####[facility] S[address]xmihxvp[address] [place] [phone]. Farhat Leal EGFR-NON AF [place] CITIZEN >60 Normal >=60 [facility] [place] Comment on above: Performed By: #### C MP ####[facility] J[address]adwlpkh87[address] [place] [phone]. Farhat Leal Globulin (S) [Mass/Vol] 3.9 g/dL Normal [facility] [place] Comment on above: Performed By: #### C MP ####[facility] Egavfcnvdq[address] [place] [address]Dr. Farhat Leal Glucose [Mass/Vol] 124 mg/dL Critically high 74-106 T [facility] Comment on above: Performed By: #### C MP ####[facility] [address]kdycrxvrm[address] [place] [address]Dr. Farhat Leal Potassium [Moles/Vol] 5.9 mmol/L Critically high 3.5-5.1 [facility] [place] Comment on above: Performed By: #### C MP ####[facility] Jghthnerye[address] [place], [place] [address]Dr. Farhat Leal Protein [Mass/Vol] 5.8 g/dL Critically low 6.4-8.2 Th [facility] Comment on above: Performed By: #### C MP ####[facility] Flnghpcnhy[address] [place], [place] [address]Dr. Farhat Leal Sodium [Moles/Vol] 132 mmol/L Critically low 136-145 Th [facility] Comment on above: Performed By: #### C MP ####[facility] [address]lbsb[address] [place] [address]Dr. Farhat Leal Urea nitrogen [Mass/Vol] 18.0 mg/dL Normal 7.0-18.0 [facility] [place] Comment on above: Performed By: #### C MP ####[facility] [address] [place] [address]Dr. Farhat Leal Urea nitrogen/Creatinine [Mass ratio] 18.9 mg/mg Normal [facility] [place] Comment on above: Performed By: #### C MP ####[facility] Efabvudinv[address] [place] [phone]. Farhat Leal INR (POC)on 01-12-2022 INR Coag (PPP) [Relative time] 2.6 {INR} High 0.8 - 1.2 [facility] Internal Quality Check Acceptable Cl [facility] ACID FAST SMEAR AND CXon Acid Fast Culture Negative Normal [facility] Comment on above: Result Comment: No a abdiel fast bacilli isolated after 6 weeks. Performed By: #### A FB ####[facility] Aonwvq[address]ce[address] [place], [place] [id number]. Madelynlorri Leal Acid Fast Smear Negative Normal [facility] Comment on above: Performed By: #### A FB ####[facility] Adjovewwtu[address] [place], [place] [address]Dr. Farhat Leal [employer] Specimen Processing Direct Inoculation Normal [facility] [place] Comment on above: Performed By: #### A FB ####[facility] Qzjxeintlb[address] [place], [place] [address]Dr. Madelynlorri Leal ACID FAST SMEAR AND CXon Acid Fast Culture Negative Normal [facility] Comment on above: Result Comment: No a abdiel fast bacilli isolated after 6 weeks. Performed By: #### A FB ####[facility] Aspicwwhla[address] [place], [place] [address]Dr. Farhat Leal Acid Fast Smear Negative Normal [facility] Comment on above: Performed By: #### A FB ####[facility] Sdyyuzntpq[address] [place], [place] [address]Dr. Farhat Leal [employer] Specimen Processing Tissue Grinding Normal [facility] [place] Comment on above: Performed By: #### A FB ####[facility] Qudspnolth[address] [place], [place] [address]Dr. Farhat Leal FUNGAL CULTUREon 01-02-2022 Fungus (Mycology) Culture Final report Normal [facility] [place] Comment on above: Performed By: #### C XFUN ####[facility] Bfebkqjrdb[address] [place], [place] [address]Dr. Farhat Leal Fungus Stain Final report Normal [facility] Comment on above: Performed By: #### C XFUN ####[facility] [address] [place] [address]. Madelynlorri Leal Result 1 Comment Normal [facility] [place] Comment on above: Result Comment: ANNI/ Calcofluor preparation: no fungus observed. Performed By: #### C XFUN ####[facility] [address] [place] [address]. Farhat Leal Result Comment: No y east or mold isolated after 4 weeks. FK506 (TACROLIMUS) WHOLE BLO ODon 12-31-2021 Tacrolimus (FK506), Blood 7.7 ng/mL Normal 2.0-20.0 [facility] [place] Comment on above: Result Comment: Trou gh (immediately following transplant) 15.0 . Trough (steady state, 2 weeks or more after transplant): 3.0 - 8.0 . Performed by LC-MS/MS technology. Performed By: #### F K506T ####[facility] Dr[address] [place] [address]. Farhat Leal HEMOGRAM AND PLATELon 2021 Hematocrit (Bld) [Volume fraction] 27.1 % Critically low 42.0-54.0 [facility] [place] Comment on above: Performed By: #### H H ####[facility] [address] [place] [address]. Farhat Leal Hemoglobin (Bld) [Mass/Vol] 8.7 g/dL Critically low 14.0-18.0 [facility] [place] Comment on above: Performed By: #### H H ####[facility] [address] [place] [address]. Farhat Leal MCH (RBC) [Entitic mass] 30.3 pg Normal 25.9-34.0 [facility] [place] Comment on above: Performed By: #### H H ####[facility] Gusf[address] [place] [address]. Farhat Leal MCHC (RBC) [Mass/Vol] 32.1 g/dL Normal 29.9-35.2 [facility] [place] Comment on above: Performed By: #### H H ####[facility] [address] [place] [address]. Farhat Leal MCV (RBC) [Entitic vol] 94.4 fL Critically high 80.0-94.0 [facility] [place] Comment on above: Performed By: #### H H ####[facility] [address] [place] [address]Dr. Farhat Leal PLT 355 103/ul Normal 150-450 [facility] Comment on above: Performed By: #### H H ####[facility] Yo[address]cuglax[address] [place] [address]Dr. Farhat Leal RBC 2.87 106/ul Critically low 4.70-6.10 [facility] Comment on above: Performed By: #### H H ####[facility] R[address]pfjttcvo[address] [place] [address]Dr. Farhat Leal WBC 6.0 103/ul Normal 4.0-11.0 [facility] [place] Comment on above: Performed By: #### H H ####[facility] [address]tzf[address] [place] [address]Dr. Farhat Leal PHOSPHORUSon 12-29-2021 Phosphate [Mass/Vol] 2.5 mg/dL Critically low 2.6-4.7 [facility] [place] Comment on above: Performed By: #### P HOS, CMP ####[facility] Qerijwbdiv[address] [place] [address]DrSkylar Farhat Elvis PROF 14(COMP METB)on 022 Albumin [Mass/Vol] 1.7 g/dL Critically low 3.4-5.0 [facility] Comment on above: Performed By: #### P HOS, CMP ####[facility] Prmmmluirc[address] [place] [address]Dr. Farhat Leal Albumin/Globulin [Mass ratio] 0.5 {ratio} Normal [facility] [place] Comment on above: Performed By: #### P HOS, CMP ####[facility] Xvaytcyltl[address] [place] [address]Dr. Farhat Leal ALP [Catalytic activity/Vol] 78 U/L Normal 46-116 [facility] Comment on above: Performed By: #### P HOS, CMP ####[facility] Sxrzoqscll[address] [place] [address]Dr. Farhat Leal ALT [Catalytic activity/Vol] 12 U/L Critically low 16-63 [facility] [place] Comment on above: Performed By: #### P HOS, CMP ####[facility] Cjqgeefach[address] [place], [place] [address]Dr. Farhat Leal Anion gap [Moles/Vol] 5.1 mmol/L Normal [facility] [place] Comment on above: Performed By: #### P HOS, CMP ####[facility] Gdncdriqjb[address] [place], [place] [address]Dr. Farhat Leal AST [Catalytic activity/Vol] 22 U/L Normal 15-37 [facility] [place] Comment on above: Performed By: #### P HOS, CMP ####[facility] Vklfxrrndt[address] [place], [place] [address]Dr. Farhat Leal Bilirubin [Mass/Vol] 0.6 mg/dL Normal 0.2-1.0 [facility] [place] Comment on above: Performed By: #### P HOS, CMP ####[facility] Avnlpvnpts[address] [place], [place] [address]Dr. Farhat Leal Calcium [Mass/Vol] 8.1 mg/dL Critically low 8.5-10.1 Th [facility] Comment on above: Performed By: #### P HOS, CMP ####[facility] Gufifuvfuj[address] [place], [place] [address]Dr. Farhat Leal Chloride [Moles/Vol] 100 mmol/L Normal 98-107 [facility] Comment on above: Performed By: #### P HOS, CMP ####[facility] Ygwdmtflca[address] [place], [place] [address]Dr. Farhat Leal CO2 [Moles/Vol] 34.2 mmol/L Critically high 21.0-32.0 [facility] [place] Comment on above: Performed By: #### P HOS, CMP ####[facility] Xmginrpsbx[address] [place], [place] [address]Dr. Farhat Leal Creatinine [Mass/Vol] 0.92 mg/dL Normal 0.70-1.30 [facility] [place] Comment on above: Performed By: #### P HOS, CMP ####[facility] Bw[address]bkbxr[address] [place] [id number]. Farhat Leal EGFR-AF [place]IZ[place] >60 Normal >=60 [facility] Comment on above: Performed By: #### P HOS, CMP ####[facility] Mnoiophcwh4372 [place] [phone]. Farhat Leal EGFR-NON AF [place] CITIZ[place] >60 Normal >=60 [facility] [place] Comment on above: Performed By: #### P HOS, CMP ####[facility] Pkdnwkssxq2720 [place] [phone]. Farhat Leal Globulin (S) [Mass/Vol] 3.3 g/dL Normal [facility] [place] Comment on above: Performed By: #### P HOS, CMP ####[facility] Qpamhbpvjb9[address] [place] [address]Dr. Farhat Leal Glucose [Mass/Vol] 116 mg/dL Critically high 74-106 [facility] Comment on above: Performed By: #### P HOS, CMP ####[facility] Fqpshegxxb4[address] [place] [address]Dr. Farhat Leal Potassium [Moles/Vol] 3.3 mmol/L Critically low 3.5-5.1 [facility] [place] Comment on above: Performed By: #### P HOS, CMP ####[facility] Ildbarjjjk8814 [place] [phone]. Farhat Leal Protein [Mass/Vol] 5.0 g/dL Critically low 6.4-8.2 [facility] Comment on above: Performed By: #### P HOS, CMP ####[facility] Galxklysue[address] [place] [address]Dr. Farhat Leal Sodium [Moles/Vol] 136 mmol/L Normal 136-145 [facility] Comment on above: Performed By: #### P HOS, CMP ####[facility] Qgazeeikdk4599 [place] [phone]. Farhat Leal Urea nitrogen [Mass/Vol] 14.0 mg/dL Normal 7.0-18.0 [facility] [place] Comment on above: Performed By: #### P HOS, CMP ####[facility] C[address]jdnjm[address] [place], [place] [address]DrSkylar Leal Urea nitrogen/Creatinine [Mass ratio] 15.2 mg/mg Normal [facility] Comment on above: Performed By: #### P HOS, CMP ####[facility] Oigdmwkkye[address] [place], [place] [address]DrSkylar Leal PROTIMEon 12-29-2021 INR Coag (PPP) [Relative time] 1.26 {INR} Normal [facility] Comment on above: Performed By: #### P T ####[facility] Kyiamxowzh[address] [place], [place] [address]Dr. Farhat Leal INR GUIDELINES SEE BELOW Normal [facility] Comment on above: Result Comment: MALINA RED INR: 2.0 - 3.0 CONDITIONS NOT LISTED BELOW 2.5 - 3.5 FOR PROSTHETIC HEART VALVE REPLACEMENT 2.5 - 3.5 RECURRENT THROMBOSIS Performed By: #### P T ####[facility] Rqbnjiiqkd[address] [place], [place] [address]Dr. Farhat Leal PT Coag (PPP) [Time] 13.4 s Critically high 9.0-11.6 [facility] Comment on above: Performed By: #### P T ####[facility] Hykjtplffc[address] [place], [place] [address]Dr. Farhat Leal XR MODIFIED BARIUM SWALLOWon 12-25-2021 XR MODIFIED BARIUM SWALLOW Normal [facility] FUNGAL CULTUREon 12-24-2021 Fungus (Mycology) Culture Final report Normal [facility] Comment on above: Performed By: #### C XFUN ####[facility] Z[address]aimhgtok[address] [place], [place] [address]Dr. Farhat Leal Fungus Stain Final report Normal [facility] Comment on above: Performed By: #### C XFUN ####[facility] Diqjibgeya[address] [place], [place] [address]DrSkylar Leal Result 1 Comment Normal [facility] Comment on above: Result Comment: ANNI/ Calcofluor preparation: no fungus observed. Performed By: #### C XFUN ####[facility] Ikvllteidb[address] [place], [place] [address]Dr. Farhat Leal Result Comment: No y east or mold isolated after 4 weeks. VANCOMYCIN TROUGHon 12-21-19 VANCOMYCIN TROUGH 14.4 ug/ml Normal 5.0-20.0 [facility] Comment on above: Performed By: #### V ANCT ####[facility] Ztgzfgeaph[address] [place], [place] [address]Dr. Farhat Leal CBC AUTO DIFFon 12-14-2021 BASO # 0.0 103/ul Normal 0.0-0.1 [facility] Comment on above: Performed By: #### C BC ####[facility] Mqqfmldbca[address] [place], [place] [address]Dr. Farhat Leal Basophils/100 WBC (Bld) 0.2 % Normal 0.2-2.0 [facility] [place] Comment on above: Performed By: #### C BC ####[facility] Eyuncqgujb[address] [place], [place] [address]Dr. Farhat Leal EO # 0.2 103/ul Normal 0.0-0.7 [facility] Comment on above: Performed By: #### C BC ####[facility] Uwnjnbtxtl[address] [place], [place] [address]Dr. Farhat Leal Eosinophils/100 WBC (Bld) 2.1 % Normal 0.9-7.0 [facility] Comment on above: Performed By: #### C BC ####[facility] Atdcorxogb[address] [place], [place] [address]Dr. Farhat Leal Erythrocyte distribution width (RBC) [Ratio] 18.2 % Critically high 11.0-15.0 [facility] Comment on above: Performed By: #### C BC ####[facility] Mywarehvtb[address] [place], [place] [address]DrSkylar Leal Hematocrit (Bld) [Volume fraction] 25.8 % Critically low 42.0-54.0 [facility] Comment on above: Performed By: #### C BC ####[facility] Qrqpdkcaai[address] [place], [place] [address]Dr. Farhat Leal Hemoglobin (Bld) [Mass/Vol] 8.0 g/dL Critically low 14.0-18.0 [facility] Comment on above: Performed By: #### C BC ####[facility] [address]qajqdcnl[address] [place] [address]DrSkylar Leal IG # 0.08 10e3/ul Critically high 0.00-0.03 [facility] Comment on above: Performed By: #### C BC ####[facility] Xwlyrpsyti[address] [place], [place] [address]DrSkylar Leal IG % 0.7 % Critically high 0.0-0.5 [facility] Comment on above: Performed By: #### C BC ####[facility] Xqbiesrjyi[address] [place], [place] [address]DrSkylar Leal LYMPH # 0.9 103/ul Critically low 1.2-3.8 [facility] Comment on above: Performed By: #### C BC ####[facility] Whdubkkead[address] [place], [place] [address]DrSkylar Leal Lymphocytes/100 WBC (Bld) 8.7 % Critically low 20.5-60.0 [facility] [place] Comment on above: Performed By: #### C BC ####[facility] Vndsuoptdy[address] [place], [place] [address]DrSkylar Leal MANUAL DIFF REQ NO Normal [facility] Comment on above: Performed By: #### C BC ####[facility] Wjiowkqurd[address] [place], [place] [address]DrSkylar Leal MCH (RBC) [Entitic mass] 30.0 pg Normal 25.9-34.0 [facility] Comment on above: Performed By: #### C BC ####[facility] Kipyrtfgjc[address] [place], [place] [address]DrSkylar Leal MCHC (RBC) [Mass/Vol] 31.0 g/dL Normal 29.9-35.2 [facility] Comment on above: Performed By: #### C BC ####[facility] Rxfrgyumdt[address] [place], [place] [address]DrSkylar Leal MCV (RBC) [Entitic vol] 96.6 fL Critically high 80.0-94.0 [facility] Comment on above: Performed By: #### C BC ####[facility] [address] [place] [id number] Leal MONO # 0.7 103/ul Normal 0.3-0.8 [facility] Comment on above: Performed By: #### C BC ####[facility] Vqalctmkki[address] [place], [place] [address]DrSkylar Farhat Leal Monocytes/100 WBC (Bld) 6.7 % Normal 1.7-12.0 [facility] Comment on above: Performed By: #### C BC ####[facility] Apikxmslyf[address] [place], [place] [address]DrSkylar Farhat Leal NEUT # 8.8 103/ul Critically high 1.4-6.5 [facility] Comment on above: Performed By: #### C BC ####[facility] Kmunnotfnz[address] [place], [place] [address]DrSkylar Farhat Leal Neutrophils/100 WBC (Bld) 81.6 % Critically high 43.0-75.0 [facility] Comment on above: Performed By: #### C BC ####[facility] Fqwcxsailb[address] [place], [place] [address]DrSkylar Farhat Leal Platelet mean volume (Bld) [Entitic vol] 10.5 fL Normal 9.5-13.5 [facility] Comment on above: Performed By: #### C BC ####[facility] Cifblxksuc[address] [place], [place] [id number]. Farhat Leal PLT 285 103/ul Normal 150-450 [facility] Comment on above: Performed By: #### C BC ####[facility] Giossrsdpv[address] [place], [place] [id number] Farhat Elvis RBC 2.67 106/ul Critically low 4.70-6.10 [facility] Comment on above: Performed By: #### C BC ####[facility] Cnqfqaltjg[address] [place], [place] [address]DrSkylar Farhat Leal WBC 10.7 103/ul Normal 4.0-11.0 [facility] [place] Comment on above: Performed By: #### C BC ####[facility] X[address] [place] [address]DrSkylar Madelynlorri Leal PROF CHEM 8 (BAS METB)on Anion gap [Moles/Vol] 12.4 mmol/L Normal [facility] Comment on above: Performed By: #### B MP ####[facility] Qyxruijnhs[address] [place] [address]Dr. Farhat Leal Calcium [Mass/Vol] 7.8 mg/dL Critically low 8.5-10.1 [facility] Comment on above: Performed By: #### B MP ####[facility] Rgygjhjfpo6040[address] [place], [place] [address]Dr. Farhat Leal Chloride [Moles/Vol] 102 mmol/L Normal 98-107 [facility] [place] Comment on above: Performed By: #### B MP ####[facility] Smkliiejvq034[address] [place], [place] [address]Dr. Farhat Leal CO2 [Moles/Vol] 28.1 mmol/L Normal 21.0-32.0 [facility] Comment on above: Performed By: #### B MP ####[facility] Qvbxumqcbs9935[address] [place], [place] [address]Dr. Farhat Leal Creatinine [Mass/Vol] 1.24 mg/dL Normal 0.70-1.30 [facility] [place] Comment on above: Performed By: #### B MP ####[facility] [address]xio[address] [place] [address]Dr. Farhat Leal EGFR-AF [place]IZ[place] >60 Normal >=60 [facility] Comment on above: Performed By: #### B MP ####[facility] Xenwefoimi[address] [place], [place] [address]Dr. Farhat Leal EGFR-NON AF [place] 57 mL/min/1.73m2 Critically low >=60 [facility] Comment on above: Performed By: #### B MP ####[facility] Zeekbnxopl[address] [place], [place] [address]Dr. Farhat Leal Glucose [Mass/Vol] 296 mg/dL Critically high 74-106 T [facility] Comment on above: Performed By: #### B MP ####[facility] Ipvnlebpsq2715[address] [place], [place] [address]Dr. Farhat Leal Potassium [Moles/Vol] 3.5 mmol/L Normal 3.5-5.1 [facility] [place] Comment on above: Performed By: #### B MP ####[facility] Zednidnikx[address] [place], [place] [address]Dr. Farhat Leal Sodium [Moles/Vol] 139 mmol/L Normal 136-145 [facility] Comment on above: Performed By: #### B MP ####[facility] Iqbzituwkm4423[address] [place], [place] [address]Dr. Farhat Leal Urea nitrogen [Mass/Vol] 27.0 mg/dL Critically high 7.0-18.0 [facility] [place] Comment on above: Performed By: #### B MP ####[facility] Evflakmtnf9[address] [place], [place] [address]Dr. Farhat Leal Urea nitrogen/Creatinine [Mass ratio] 21.8 mg/mg Normal [facility] [place] Comment on above: Performed By: #### B MP ####[facility] Rhkngvajob[address] [place], [place] [address]Dr. Farhat Leal PROTIMEon 12-14-2021 INR Coag (PPP) [Relative time] 3.36 {INR} Normal [facility] [place] Comment on above: Performed By: #### P T ####[facility] Gzmmeeqzzs[address] [place], [place] [address]Dr. Farhat Leal INR GUIDELINES SEE BELOW Normal [facility] Comment on above: Result Comment: MALINA RED INR: 2.0 - 3.0 CONDITIONS NOT LISTED BELOW 2.5 - 3.5 FOR PROSTHETIC HEART VALVE REPLACEMENT 2.5 - 3.5 RECURRENT THROMBOSIS Performed By: #### P T ####[facility] Glmhvembcl[address] [place], [place] [address]Dr. Farhat Leal PT Coag (PPP) [Time] 33.5 s Critically high 9.0-11.6 [facility] [place] Comment on above: Performed By: #### P T ####[facility] Gdf[address]40[address] [place], [place] [address]PpSkylar Leal XR CHEST 1 Von 12-14-2021 XR CHEST 1 V Normal [facility] No Panel Informationon 12-01 BLANK _ [facility] Implant Date 04/22/2012 [facility] CHECKon AMS Duration (ms) 5 of 8 [facility] AMS Fallback Rate (bpm) DDIR [facility] AV Delay Adaptive Paced Minimum (ms) 300 ms [facility] AV Delay Adaptive Rate Maximum (bpm) 130 {beats}/min [facility] AV Delay Adaptive Rate Minimum (bpm) 70 {beats}/min [facility] AV Delay Adaptive Sensed Minimum (ms) 300 ms [facility] AV Delay Paced (ms) 300 ms [facility] AV Delay Sensed (ms) 300 ms [facility] Jaciel LV Pacing Polarity Unknown [facility] Jaciel LV Sensing Polarity Unknown [facility] Jaciel RA Pacing Amplitude (volts) 2.4 V [facility] Jaciel RA Pacing Polarity BI [facility] Jaciel RA Pacing Pulse Width (ms) 0.4 ms [facility] Jaciel RA Sensing Amplitude (mvolts) AUTO [facility] Jaciel RA Sensing Blanking Period (ms) 56 ms [facility] Jaciel RA Sensing Polarity BI [facility] Jaciel RA Sensing Refractory Period (ms) AUTO [facility] Jaciel RV Pacing Amplitude (volts) 3.4 V [facility] Jaciel RV Pacing Polarity BI [facility] Jaciel RV Pacing Pulse Width (ms) 0.4 ms [facility] Jaciel RV Sensing Amplitude (mvolts) AUTO [facility] Jaciel RV Sensing Blanking Period (ms) 30 ms [facility] Jaciel RV Sensing Polarity BI [facility] Jaciel RV Sensing Refractory Period (ms) 250 ms [facility] Hysteresis Rate (bpm) 60 {beats}/min [facility] Lead1 Mfg SUZETTE [facility] Lead2 Mfg SUZETTE [facility] Location RA [facility] Location RV [facility] Lower Rate (bpm) 60 {beats}/min [facility] Max Sensor Rate (bmp) 130 {beats}/min [facility] Model 041131 Monika Dominguez [facility] Model 249975 [facility] Model 930127 [facility] Pacemaker Dependent? NO [facility] PM-Device Mfg BIO [facility] PM-PMT Intervention ON [facility] PM-PVC Intervention ON [facility] PM-Rate Modulation Acceleration Reaction 4 s [facility] PM-Rate Modulation Deceleration 0.5 m [facility] PM-Rate Modulation [place] 23 [facility] PM-Rate Modulation Threshold Medium [facility] RA Bipolar Impedance ohms 448 ohm [facility] Rhythm AF with controlled ventricular rate. [facility] RV Bipolar Impedance ohms 390 ohm [facility] Serial Number [id number] [facility] Serial Number [id number] [facility] Serial Number [id number] [facility] Thresh RA Sensing Amplitude (mvolts) 2.4 mV [facility] Thresh RV Capture Amplitude (volts) 1.8 V [facility] Thresh RV Capture Duration (ms) 0.4 ms [facility] Thresh RV Sensing Amplitude (mvolts) 2.4 mV [facility] Tracking Rate (bpm) 160 {beats}/min [facility] BNPon 11-28-2021 Natriuretic peptide B (Bld) [Mass/Vol] 89168.0 pg/mL Critically high <=1,800.0 [facility] Comment on above: Performed By: #### C MP, BNP, CRP ####[facility] Koecltryre[address] [place], [place] [address]Dr. Farhat Leal CBC AUTO DIFFon 11-28-2021 BASO # 0.0 103/ul Normal 0.0-0.1 [facility] Comment on above: Performed By: #### C BC ####[facility] Pfkgdjcfsd654[address] [place], [place] [address]Dr. Farhat Leal Basophils/100 WBC (Bld) 0.3 % Normal 0.2-2.0 [facility] Comment on above: Performed By: #### C BC ####[facility] [address] [place] [address]Dr. Farhat Leal EO # 0.1 103/ul Normal 0.0-0.7 [facility] Comment on above: Performed By: #### C BC ####[facility] Mdaueugklq[address] [place], [place] [address]Dr. Farhat eLal Eosinophils/100 WBC (Bld) 1.0 % Normal 0.9-7.0 [facility] [place] Comment on above: Performed By: #### C BC ####[facility] [address] [place] [address]Dr. Madelynlorri Elvis Erythrocyte distribution width (RBC) [Ratio] 14.0 % Normal 11.0-15.0 [facility] [place] Comment on above: Performed By: #### C BC ####[facility] [address] [place] [address]Dr. Farhat Leal Hematocrit (Bld) [Volume fraction] 27.6 % Critically low 42.0-54.0 [facility] [place] Comment on above: Performed By: #### C BC ####[facility] Hadanyzysl337[address] [place], [place] [address]Dr. Farhat Leal Hemoglobin (Bld) [Mass/Vol] 9.0 g/dL Critically low 14.0-18.0 [facility] [place] Comment on above: Performed By: #### C BC ####[facility] Fsyyvfidgj[address] [place], [place] [address]Dr. Farhat Leal IG # 0.12 10e3/ul Critically high 0.00-0.03 [facility] Comment on above: Performed By: #### C BC ####[facility] Jhvswarfdz20[address] [place], [place] [address]Dr. Farhat Leal IG % 1.0 % Critically high 0.0-0.5 [facility] Comment on above: Performed By: #### C BC ####[facility] Wccvvecmmh[address] [place], [place] [address]Dr. Farhat Leal LYMPH # 1.2 103/ul Normal 1.2-3.8 [facility] Comment on above: Performed By: #### C BC ####[facility] Xlnvvgmpzo63[address] [place], [place] [address]Dr. Farhat Leal Lymphocytes/100 WBC (Bld) 9.9 % Critically low 20.5-60.0 [facility] [place] Comment on above: Performed By: #### C BC ####[facility] Erforouxfy240[address] [place], [place] [address]Dr. Farhat Leal MANUAL DIFF REQ NO Normal [facility] Comment on above: Performed By: #### C BC ####[facility] Bdsq[address]jxp[address] [place] [address]Dr. Farhat Leal MCH (RBC) [Entitic mass] 30.0 pg Normal 25.9-34.0 [facility] [place] Comment on above: Performed By: #### C BC ####[facility] Ljeevppqdx[address] [place], [place] [address]Dr. Farhat Leal MCHC (RBC) [Mass/Vol] 32.6 g/dL Normal 29.9-35.2 [facility] Comment on above: Performed By: #### C BC ####[facility] Llmnokocnt[address] [place], [place] [address]DrSkylar Leal MCV (RBC) [Entitic vol] 92.0 fL Normal 80.0-94.0 [facility] Comment on above: Performed By: #### C BC ####[facility] Crnavwufrb6940[address] [place], [place] [address]DrSkylar Leal MONO # 1.1 103/ul Critically high 0.3-0.8 [facility] Comment on above: Performed By: #### C BC ####[facility] Epuelqoujk[address] [place], [place] [address]DrSkylar Leal Monocytes/100 WBC (Bld) 9.3 % Normal 1.7-12.0 [facility] Comment on above: Performed By: #### C BC ####[facility] Suznurhuoi[address] [place], [place] [address]DrSkylar Leal NEUT # 9.3 103/ul Critically high 1.4-6.5 [facility] Comment on above: Performed By: #### C BC ####[facility] Ryitjddlzf24[address] [place], [place] [address]DrSkylar Leal Neutrophils/100 WBC (Bld) 78.5 % Critically high 43.0-75.0 [facility] Comment on above: Performed By: #### C BC ####[facility] Oaczankvqo67[address] [place], [place] [address]DrSkylar Leal Platelet mean volume (Bld) [Entitic vol] 9.6 fL Normal 9.5-13.5 [facility] [place] Comment on above: Performed By: #### C BC ####[facility] [address] [place] [address]Dr. Farhat Leal PLT 357 103/ul Normal 150-450 [facility] [place] Comment on above: Performed By: #### C BC ####[facility] A[address]ch[address]p22[address] [place] [address]Dr. Farhat Leal RBC 3.00 106/ul Critically low 4.70-6.10 [facility] Comment on above: Performed By: #### C BC ####[facility] Dyqmcctoih[address] [place] [address]Dr. Farhat Leal WBC 11.8 103/ul Critically high 4.0-11.0 [facility] Comment on above: Performed By: #### C BC ####[facility] Voyvbwpevd4[address] [place] [address]DrSkylar Leal CRPon 11-28-2021 CRP 20.9 mg/dL Critically high <=1.0 [facility] Comment on above: Performed By: #### C MP, BNP, CRP ####[facility] Nceqdyeqfm44[address] [place], [place] [address]Dr. Farhat Leal CULTURE OTHERon 11-28-2021 CULTURE OTHER Normal [facility] Comment on above: Performed By: #### O THCX ####[facility] Gwzhxnxfem[address] [place], [place] [address]Dr. Farhat Leal CULTURE OTHER Normal [facility] Comment on above: Performed By: #### O THCX ####[facility] Wpynsxtuvv90[address] [place] [id number] Leal PROF 14(COMP METB)on 022 Albumin [Mass/Vol] 1.4 g/dL Critically low 3.4-5.0 [facility] Comment on above: Performed By: #### C MP, BNP, CRP ####[facility] Pirffhpyiq[address] [place], [place] [address]DrSkylar Leal Albumin/Globulin [Mass ratio] 0.4 {ratio} Normal [facility] [place] Comment on above: Performed By: #### C MP, BNP, CRP ####[facility] Iyjalfdntn[address] [place] [address]Dr. Farhat Leal ALP [Catalytic activity/Vol] 82 U/L Normal 46-116 [facility] [place] Comment on above: Performed By: #### C MP, BNP, CRP ####[facility] Izhuyuioob[address] [place], [place] [address]Dr. Farhat Elvis ALT [Catalytic activity/Vol] 20 U/L Normal 16-63 [facility] [place] Comment on above: Performed By: #### C MP, BNP, CRP ####[facility] Rbbnxnefco[address] [place], [place] [address]Dr. Farhat Leal Anion gap [Moles/Vol] 13.0 mmol/L Normal [facility] Comment on above: Performed By: #### C MP, BNP, CRP ####[facility] Xwwcunonfk[address] [place], [place] [address]Dr. Farhat Elvis AST [Catalytic activity/Vol] 33 U/L Normal 15-37 [facility] [place] Comment on above: Performed By: #### C MP, BNP, CRP ####[facility] Wyxhpjxanq[address] [place], [place] [address]Dr. Farhat Leal Bilirubin [Mass/Vol] 0.7 mg/dL Normal 0.2-1.0 [facility] [place] Comment on above: Performed By: #### C MP, BNP, CRP ####[facility] Akgzdvfupy166[address] [place], [place] [address]Dr. Farhat Lael Calcium [Mass/Vol] 8.4 mg/dL Critically low 8.5-10.1 [facility] Comment on above: Performed By: #### C MP, BNP, CRP ####[facility] Reckjsqqvi90[address] [place], [place] [address]Dr. Farhat Leal Chloride [Moles/Vol] 100 mmol/L Normal 98-107 [facility] [place] Comment on above: Performed By: #### C MP, BNP, CRP ####[facility] Ofsidxidpl[address] [place] [address]Dr. Farhat Leal CO2 [Moles/Vol] 23.7 mmol/L Normal 21.0-32.0 [facility] Comment on above: Performed By: #### C MP, BNP, CRP ####[facility] Aujdvsbygz4[address] [place] [address]Dr. Farhat Elvis Creatinine [Mass/Vol] 1.70 mg/dL Critically high 0.70-1.30 [facility] [place] Comment on above: Performed By: #### C MP, BNP, CRP ####[facility] Kmlytxukup[address] [place] [address]Dr. Farhat Elvis EGFR-AF [place] 48 mL/min/1.73m2 Critically low >=60 [facility] [place] Comment on above: Performed By: #### C MP, BNP, CRP ####[facility] Sz[address]jxaclfa[address] [place] [address]Dr. Farhat Leal EGFR-NON AF [place] 39 mL/min/1.73m2 Critically low >=60 [facility] Comment on above: Performed By: #### C MP, BNP, CRP ####[facility] Ofkvpcwaie[address] [place] [address]Dr. Farhat Elvis Globulin (S) [Mass/Vol] 3.6 g/dL Normal [facility] [place] Comment on above: Performed By: #### C MP, BNP, CRP ####[facility] Aqjahqxltu[address] [place] [address]Dr. Madelynlorri Elvis Glucose [Mass/Vol] 232 mg/dL Critically high 74-106 T [facility] Comment on above: Performed By: #### C MP, BNP, CRP ####[facility] Rkfymzjfuk[address] [place] [address]Dr. Farhat Elvis Potassium [Moles/Vol] 3.7 mmol/L Normal 3.5-5.1 [facility] [place] Comment on above: Performed By: #### C MP, BNP, CRP ####[facility] Vhocwkhkdw[address] [place] [address]Dr. Farhat Leal Protein [Mass/Vol] 5.0 g/dL Critically low 6.4-8.2 [facility] Comment on above: Performed By: #### C MP, BNP, CRP ####[facility] Ccmkwcsjik[address] [place], [place] [address]Dr. Farhat Leal Sodium [Moles/Vol] 133 mmol/L Critically low 136-145 Th [facility] Comment on above: Performed By: #### C MP, BNP, CRP ####[facility] Tsagoydemc[address] [place], [place] [address]Dr. Farhat Leal Urea nitrogen [Mass/Vol] 52.0 mg/dL Critically high 7.0-18.0 [facility] [place] Comment on above: Performed By: #### C MP, BNP, CRP ####[facility] Leojzoytub7[address] [place], [place] [address]Dr. Farhat Leal Urea nitrogen/Creatinine [Mass ratio] 30.6 mg/mg Normal [facility] Comment on above: Performed By: #### C MP, BNP, CRP ####[facility] Nofpzwdtqd98[address] [place], [place] [address]Dr. Farhat Leal PROTIMEon 11-28-2021 INR Coag (PPP) [Relative time] 1.29 {INR} Normal [facility] [place] Comment on above: Performed By: #### P T ####[facility] Tsrcxfvwzd524[address] [place], [place] [address]Dr. Farhat Leal INR GUIDELINES SEE BELOW Normal [facility] Comment on above: Result Comment: MALINA RED INR: 2.0 - 3.0 CONDITIONS NOT LISTED BELOW 2.5 - 3.5 FOR PROSTHETIC HEART VALVE REPLACEMENT 2.5 - 3.5 RECURRENT THROMBOSIS Performed By: #### P T ####[facility] Susbhuwctb[address] [place], [place] [address]Dr. Farhat Leal PT Coag (PPP) [Time] 13.7 s Critically high 9.0-11.6 [facility] [place] Comment on above: Performed By: #### P T ####[facility] Hchpakwxkf169[address] [place], [place] [address]Dr. Farhat Leal [facility] SED RATE 77 mm/hr Critically high <=20 [facility] Comment on above: Performed By: #### S EDR ####[facility] Fykeriwrgd[address] [place], [place] [address]Dr. Farhat Leal XR CHEST 2 Von 11-28-2021 XR CHEST 2 V Normal [facility] BNPon 11-27-2021 Natriuretic peptide B (Bld) [Mass/Vol] 88484.0 pg/mL Critically high <=1,800.0 [facility] Comment on above: Performed By: #### B RN DISEASE MANAGEMENT, CMP, CRP ####[facility] Twpxxeaork[address] [place], [place] [address]Dr. Farhat Leal CBC AUTO DIFFon 11-27-2021 BASO # 0.0 103/ul Normal 0.0-0.1 [facility] Comment on above: Performed By: #### C BC ####[facility] Iuwvszjvqj[address] [place], [place] [address]Dr. Farhat Leal Basophils/100 WBC (Bld) 0.2 % Normal 0.2-2.0 [facility] Comment on above: Performed By: #### C BC ####[facility] Cvabubessf[address] [place], [place] [address]Dr. Farhat Leal EO # 0.2 103/ul Normal 0.0-0.7 [facility] Comment on above: Performed By: #### C BC ####[facility] Ybxjmnzyai26[address] [place], [place] [address]Dr. Farhat Leal Eosinophils/100 WBC (Bld) 1.9 % Normal 0.9-7.0 [facility] Comment on above: Performed By: #### C BC ####[facility] Plckglbttv[address] [place], [place] [address]Dr. Farhat Leal Erythrocyte distribution width (RBC) [Ratio] 13.9 % Normal 11.0-15.0 [facility] Comment on above: Performed By: #### C BC ####[facility] Dirmoawogu[address] [place], [place] [address]Dr. Farhat Leal Hematocrit (Bld) [Volume fraction] 28.7 % Critically low 42.0-54.0 [facility] Comment on above: Performed By: #### C BC ####[facility] Qdcqczsmzz[address] [place] [id number]. Farhat Leal Hemoglobin (Bld) [Mass/Vol] 9.3 g/dL Critically low 14.0-18.0 [facility] [place] Comment on above: Performed By: #### C BC ####[facility] [address]ux[address] [place] [address]Dr. Farhat Leal IG # 0.14 10e3/ul Critically high 0.00-0.03 Access [facility] Comment on above: Performed By: #### C BC ####[facility] [address] [place] [address]Dr. Farhat Leal IG % 1.2 % Critically high 0.0-0.5 [facility] Comment on above: Performed By: #### C BC ####[facility] Ydkbkkxoge[address] [place], [place] [address]Dr. Farhat Elvis LYMPH # 1.1 103/ul Critically low 1.2-3.8 [facility] Comment on above: Performed By: #### C BC ####[facility] [address]por[address] [place] [address]Dr. Farhat Leal Lymphocytes/100 WBC (Bld) 9.4 % Critically low 20.5-60.0 [facility] Comment on above: Performed By: #### C BC ####[facility] Xktogesbnz[address] [place] [address]Dr. Farhat Leal MANUAL DIFF REQ NO Normal [facility] Comment on above: Performed By: #### C BC ####[facility] Snzzfqyykl[address] [place] [address]Dr. Farhat Leal MCH (RBC) [Entitic mass] 29.7 pg Normal 25.9-34.0 [facility] Comment on above: Performed By: #### C BC ####[facility] Eurckqcxbj3[address] [place] [address]Dr. Farhat Elvis MCHC (RBC) [Mass/Vol] 32.4 g/dL Normal 29.9-35.2 [facility] Comment on above: Performed By: #### C BC ####[facility] [address] [place] [id number]. Farhat Leal MCV (RBC) [Entitic vol] 91.7 fL Normal 80.0-94.0 [facility] Comment on above: Performed By: #### C BC ####[facility] [address] [place] [id number] Leal MONO # 1.1 103/ul Critically high 0.3-0.8 [facility] Comment on above: Performed By: #### C BC ####[facility] Gpyqdqobyu32[address] [place] [phone]. Farhat Leal Monocytes/100 WBC (Bld) 9.7 % Normal 1.7-12.0 [facility] Comment on above: Performed By: #### C BC ####[facility] Qpklbpxjei[address] [place], [place] [id number]. Farhat Leal NEUT # 9.2 103/ul Critically high 1.4-6.5 [facility] Comment on above: Performed By: #### C BC ####[facility] Qpzbwhfzur88[address] [place] [phone]. Farhat Leal Neutrophils/100 WBC (Bld) 77.6 % Critically high 43.0-75.0 [facility] Comment on above: Performed By: #### C BC ####[facility] Mvigxbybqs23[address] [place] [phone]. Farhat Leal Platelet mean volume (Bld) [Entitic vol] 9.5 fL Normal 9.5-13.5 The [facility] Comment on above: Performed By: #### C BC ####[facility] Pdxghdfuit[address] [place], [place] [id number]. Farhat Elvis PLT 375 103/ul Normal 150-450 [facility] Comment on above: Performed By: #### C BC ####[facility] Chzbpdrqup05[address] [place] [phone]. Farhat Elvis RBC 3.13 106/ul Critically low 4.70-6.10 The [facility] Comment on above: Performed By: #### C BC ####[facility] Fnwfrvecgu2[address] [place] [phone]. Madelynlorri Leal WBC 11.8 103/ul Critically high 4.0-11.0 [facility] Comment on above: Performed By: #### C BC ####[facility] Nytdvrcnqw4[address] [place] [phone]. Farhat Leal CRPon 11-27-2021 CRP 24.5 mg/dL Critically high <=1.0 [facility] Comment on above: Performed By: #### B RN DISEASE MANAGEMENT, CMP, CRP ####[facility] Vb[address]ppvatl[address] [place] [address]Dr. Farhat Leal CULTURE OTHERon 11-27-2021 CULTURE OTHER Normal [facility] Comment on above: Performed By: #### O THCX ####[facility] Aokexagxat[address] [place], [place] [address]Dr. Farhat Leal CULTURE OTHER Normal [facility] Comment on above: Performed By: #### O THCX ####[facility] Mvxphsgvgr[address] [place], [place] [address]Dr. Farhat Leal CULTURE WOUNDon 11-27-2021 CULTURE WOUND Normal [facility] Comment on above: Performed By: #### W OUNDCX ####[facility] Nocigriyti[address] [place] [address]Dr. Farhat Leal POINT OF CARE GLUCOSEon 11-15 Glucose [Mass/Vol] 147 mg/dL Critically high 74-106 [facility] Comment on above: Performed By: #### P OCGLUC ####[facility] Jdulkxubjs[address] [place], [place] [address]Dr. Farhat Leal PROF 14(COMP METB)on 022 Albumin [Mass/Vol] 1.4 g/dL Critically low 3.4-5.0 [facility] Comment on above: Performed By: #### B RN DISEASE MANAGEMENT, CMP, CRP ####[facility] Sbvslrkrkv[address] [place] [address]Dr. Farhat Leal Albumin/Globulin [Mass ratio] 0.4 {ratio} Normal [facility] [place] Comment on above: Performed By: #### B RN DISEASE MANAGEMENT, CMP, CRP ####[facility] Ikmpcrmjvf[address] [place], [place] [address]Dr. Farhat Elvis ALP [Catalytic activity/Vol] 82 U/L Normal 46-116 [facility] [place] Comment on above: Performed By: #### B RN DISEASE MANAGEMENT, CMP, CRP ####[facility] Snlroycsto[address] [place], [place] [address]Dr. Farhat Leal ALT [Catalytic activity/Vol] 22 U/L Normal 16-63 [facility] [place] Comment on above: Performed By: #### B RN DISEASE MANAGEMENT, CMP, CRP ####[facility] Hangbpuucb[address] [place], [place] [address]Dr. Farhat Leal Anion gap [Moles/Vol] 14.2 mmol/L Normal [facility] Comment on above: Performed By: #### B RN DISEASE MANAGEMENT, CMP, CRP ####[facility] Lrzmgnctpd[address] [place], [place] [address]Dr. Farhat Leal AST [Catalytic activity/Vol] 35 U/L Normal 15-37 [facility] [place] Comment on above: Performed By: #### B RN DISEASE MANAGEMENT, CMP, CRP ####[facility] Vtvemgxtgq[address] [place], [place] [address]Dr. Farhat Leal Bilirubin [Mass/Vol] 0.7 mg/dL Normal 0.2-1.0 [facility] Comment on above: Performed By: #### B RN DISEASE MANAGEMENT, CMP, CRP ####[facility] Rwcozuumah[address] [place], [place] [address]Dr. Farhat Leal Calcium [Mass/Vol] 8.2 mg/dL Critically low 8.5-10.1 [facility] Comment on above: Performed By: #### B RN DISEASE MANAGEMENT, CMP, CRP ####[facility] Retblpyymv[address] [place], [place] [address]Dr. Farhat Leal Chloride [Moles/Vol] 99 mmol/L Normal 98-107 [facility] [place] Comment on above: Performed By: #### B RN DISEASE MANAGEMENT, CMP, CRP ####[facility] Ckivqknqpj[address] [place] [address]Dr. Farhat Leal CO2 [Moles/Vol] 22.6 mmol/L Normal 21.0-32.0 [facility] Comment on above: Performed By: #### B RN DISEASE MANAGEMENT, CMP, CRP ####[facility] V[address]zmylz37[address] [place] [phone]. Farhat Leal Creatinine [Mass/Vol] 1.73 mg/dL Critically high 0.70-1.30 [facility] Comment on above: Performed By: #### B RN DISEASE MANAGEMENT, CMP, CRP ####[facility] Clqjhwgfyw07[address] [place] [phone]. Farhat Elvis EGFR-AF [place] 47 mL/min/1.73m2 Critically low >=60 [facility] [place] Comment on above: Performed By: #### B RN DISEASE MANAGEMENT, CMP, CRP ####[facility] Msjszvlonf[address] [place], [place] [address]Dr. Farhat Leal EGFR-NON AF [place] 38 mL/min/1.73m2 Critically low >=60 [facility] Comment on above: Performed By: #### B RN DISEASE MANAGEMENT, CMP, CRP ####[facility] Voybvyajfy[address] [place] [address]Dr. Farhat Elvis Globulin (S) [Mass/Vol] 3.7 g/dL Normal [facility] Comment on above: Performed By: #### B RN DISEASE MANAGEMENT, CMP, CRP ####[facility] Opmaoekwap[address] [place] [address]Dr. Madelynlorri Elvis Glucose [Mass/Vol] 220 mg/dL Critically high 74-106 [facility] Comment on above: Performed By: #### B RN DISEASE MANAGEMENT, CMP, CRP ####[facility] Vqtstdjqkq[address] [place] [address]Dr. Farhat Leal Potassium [Moles/Vol] 3.8 mmol/L Normal 3.5-5.1 [facility] Comment on above: Performed By: #### B RN DISEASE MANAGEMENT, CMP, CRP ####[facility] Ul[address]fjmfc[address] [place] [address]Dr. Farhat Elvis Protein [Mass/Vol] 5.1 g/dL Critically low 6.4-8.2 [facility] Comment on above: Performed By: #### B RN DISEASE MANAGEMENT, CMP, CRP ####[facility] Z[address]xsc[address] [place] [address]Dr. Farhat Leal Sodium [Moles/Vol] 132 mmol/L Critically low 136-145 [facility] Comment on above: Performed By: #### B RN DISEASE MANAGEMENT, CMP, CRP ####[facility] Wjerbqogbh[address] [place] [address]Dr. Farhat Leal Urea nitrogen [Mass/Vol] 49.0 mg/dL Critically high 7.0-18.0 [facility] Comment on above: Performed By: #### B RN DISEASE MANAGEMENT, CMP, CRP ####[facility] Nubmgnufoy[address] [place], [place] [address]Dr. Farhat Leal Urea nitrogen/Creatinine [Mass ratio] 28.3 mg/mg Normal [facility] [place] Comment on above: Performed By: #### B RN DISEASE MANAGEMENT, CMP, CRP ####[facility] Posrnenyzd8[address] [place], [place] [address]Dr. Farhat Leal PROTIMEon 11-27-2021 INR Coag (PPP) [Relative time] 1.25 {INR} Normal [facility] Comment on above: Performed By: #### P T ####[facility] Dctevwdhtp[address] [place], [place] [address]Dr. Farhat Leal INR GUIDELINES SEE BELOW Normal [facility] Comment on above: Result Comment: MALINA RED INR: 2.0 - 3.0 CONDITIONS NOT LISTED BELOW 2.5 - 3.5 FOR PROSTHETIC HEART VALVE REPLACEMENT 2.5 - 3.5 RECURRENT THROMBOSIS Performed By: #### P T ####[facility] Qspdfczapj[address] [place], [place] [address]Dr. Farhat Leal PT Coag (PPP) [Time] 13.3 s Critically high 9.0-11.6 [facility] [place] Comment on above: Performed By: #### P T ####[facility] Ynkaizkuss[address] [place], [place] [address]Dr. Farhat Leal [facility] SED RATE 60 mm/hr Critically high <=20 [facility] Comment on above: Performed By: #### S EDR ####[facility] [address]wrnx[address] [place] [address]Dr. Farhat Leal VANCOMYCIN TROUGHon 11-28-19 22 VANCOMYCIN TROUGH 21.2 ug/ml Critically high 5.0-20.0 Th e [facility] Comment on above: Performed By: #### V ANCT ####[facility] Yigtwzmlar235[address] [place], [place] [address]Dr. Farhat Leal XR CHEST 1 Von 11-27-2021 XR CHEST 1 V Normal [facility] BNPon 11-26-2021 Natriuretic peptide B (Bld) [Mass/Vol] 37922.0 pg/mL Critically high <=1,800.0 [facility] Comment on above: Performed By: #### B RN DISEASE MANAGEMENT, CRP, CMP ####[facility] Sumlptovsx[address] [place], [place] [address]Dr. Farhat Elvis CBC AUTO DIFFon 11-26-2021 BASO # 0.0 103/ul Normal 0.0-0.1 [facility] [place] Comment on above: Performed By: #### C BC ####[facility] Wetwptvbab[address] [place], [place] [address]Dr. Madelynlorri Leal Basophils/100 WBC (Bld) 0.2 % Normal 0.2-2.0 [facility] Comment on above: Performed By: #### C BC ####[facility] Txnuuzlaob239[address] [place], [place] [address]Dr. Farhat Elvis EO # 0.0 103/ul Normal 0.0-0.7 [facility] Comment on above: Performed By: #### C BC ####[facility] Dltouspvyl[address] [place], [place] [address]Dr. Madelynlorri Leal Eosinophils/100 WBC (Bld) 0.3 % Critically low 0.9-7.0 [facility] Comment on above: Performed By: #### C BC ####[facility] Gihhdbcufy[address] [place], [place] [address]Dr. Farhat Leal Erythrocyte distribution width (RBC) [Ratio] 13.9 % Normal 11.0-15.0 [facility] Comment on above: Performed By: #### C BC ####[facility] Rodfyapjkk[address] [place] [address]DrSkylar Leal Hematocrit (Bld) [Volume fraction] 27.3 % Critically low 42.0-54.0 [facility] Comment on above: Performed By: #### C BC ####[facility] Zzyscdktmi[address] [place] [address]DrSkylar Leal Hemoglobin (Bld) [Mass/Vol] 8.8 g/dL Critically low 14.0-18.0 [facility] Comment on above: Performed By: #### C BC ####[facility] Juhjvqivjp[address] [place], [place] [address]DrSkylar Leal IG # 0.17 10e3/ul Critically high 0.00-0.03 [facility] Comment on above: Performed By: #### C BC ####[facility] Lxeoztpmbs[address] [place], [place] [address]DrSkylar Leal IG % 1.2 % Critically high 0.0-0.5 [facility] Comment on above: Performed By: #### C BC ####[facility] Umbafnyjym[address] [place], [place] [address]DrSkylar Leal LYMPH # 0.7 103/ul Critically low 1.2-3.8 [facility] Comment on above: Performed By: #### C BC ####[facility] Vfjmyabcvr20[address] [place], [place] [address]DrSkylar Leal Lymphocytes/100 WBC (Bld) 4.8 % Critically low 20.5-60.0 [facility] Comment on above: Performed By: #### C BC ####[facility] Mkvxavxqll1968[address] [place], [place] [address]DrSkylar Leal MANUAL DIFF REQ NO Normal [facility] Comment on above: Performed By: #### C BC ####[facility] Pizaiwsnbz[address] [place] [address]DrSkylar Leal MCH (RBC) [Entitic mass] 29.9 pg Normal 25.9-34.0 [facility] Comment on above: Performed By: #### C BC ####[facility] Tgqxnlmede2130 [place] [address]DrSkylar Leal MCHC (RBC) [Mass/Vol] 32.2 g/dL Normal 29.9-35.2 [facility] Comment on above: Performed By: #### C BC ####[facility] Nzqnuqglmk3042 [place] [address]DrSkylar Leal MCV (RBC) [Entitic vol] 92.9 fL Normal 80.0-94.0 [facility] Comment on above: Performed By: #### C BC ####[facility] Wpslslpaky[address] [place], [place] [address]DrSkylar Leal MONO # 1.3 103/ul Critically high 0.3-0.8 [facility] Comment on above: Performed By: #### C BC ####[facility] Vwmhqprdkt[address] [place], [place] [address]DrSkylra Leal Monocytes/100 WBC (Bld) 9.6 % Normal 1.7-12.0 [facility] Comment on above: Performed By: #### C BC ####[facility] Mkwxctdzuy88[address] [place], [place] [address]DrSkylar Leal NEUT # 11.4 103/ul Critically high 1.4-6.5 The [facility] Comment on above: Performed By: #### C BC ####[facility] Gqtiieiptu[address] [place], [place] [address]DrSkylar Leal Neutrophils/100 WBC (Bld) 83.9 % Critically high 43.0-75.0 [facility] Comment on above: Performed By: #### C BC ####[facility] Azweqifiwo[address] [place], [place] [address]DrSkylar Leal Platelet mean volume (Bld) [Entitic vol] 9.6 fL Normal 9.5-13.5 [facility] Comment on above: Performed By: #### C BC ####[facility] Jsgtszvmya[address] [place], [place] [address]DrSkylar Leal PLT 395 103/ul Normal 150-450 [facility] [place] Comment on above: Performed By: #### C BC ####[facility] Eglczeovjp64[address] [place] [id number]. Farhat Leal RBC 2.94 106/ul Critically low 4.70-6.10 [facility] Comment on above: Performed By: #### C BC ####[facility] Hijbppqnzy7[address] [place] [phone]. Farhat Leal WBC 13.6 103/ul Critically high 4.0-11.0 [facility] Comment on above: Performed By: #### C BC ####[facility] Qrpqvscglv6922 [place] [phone]. Farhat Elvis CRPon 11-26-2021 CRP [Mass/Vol] mg/L Critically high <=1.0 [facility] Comment on above: Performed By: #### B RN DISEASE MANAGEMENT, CRP, CMP ####[facility] Qktkkynztu40[address] [place] [address]Dr. Farhat Elvis PROF 14(COMP METB)on 11-26- 022 Albumin [Mass/Vol] 1.5 g/dL Critically low 3.4-5.0 [facility] Comment on above: Performed By: #### B RN DISEASE MANAGEMENT, CRP, CMP ####[facility] Suferzd[address] [place] [id number]. Farhat Leal Albumin/Globulin [Mass ratio] 0.4 {ratio} Normal [facility] [place] Comment on above: Performed By: #### B RN DISEASE MANAGEMENT, CRP, CMP ####[facility] Owtdrzjjji[address] [place] [phone]. Farhat Elvis ALP [Catalytic activity/Vol] 88 U/L Normal 46-116 [facility] Comment on above: Performed By: #### B RN DISEASE MANAGEMENT, CRP, CMP ####[facility] Ximagbimar[address] [place] [address]Dr. Farhat Leal ALT [Catalytic activity/Vol] 29 U/L Normal 16-63 [facility] [place] Comment on above: Performed By: #### B RN DISEASE MANAGEMENT, CRP, CMP ####[facility] Ebdyuswktk4[address] [place] [id number]. Farhat Leal Anion gap [Moles/Vol] 13.3 mmol/L Normal [facility] Comment on above: Performed By: #### B RN DISEASE MANAGEMENT, CRP, CMP ####[facility] Lrdkcdgodl075[address] [place] [id number]. Farhat Leal AST [Catalytic activity/Vol] 32 U/L Normal 15-37 [facility] Comment on above: Performed By: #### B RN DISEASE MANAGEMENT, CRP, CMP ####[facility] Odieemzuze[address] [place] [address]Dr. Farhat Leal Bilirubin [Mass/Vol] 0.6 mg/dL Normal 0.2-1.0 [facility] Comment on above: Performed By: #### B RN DISEASE MANAGEMENT, CRP, CMP ####[facility] Iqvyxbjoub[address] [place] [address]Dr. Farhat Leal Calcium [Mass/Vol] 8.0 mg/dL Critically low 8.5-10.1 [facility] Comment on above: Performed By: #### B RN DISEASE MANAGEMENT, CRP, CMP ####[facility] Joknnisdpk[address] [place] [address]Dr. Farhat Leal Chloride [Moles/Vol] 98 mmol/L Normal 98-107 [facility] Comment on above: Performed By: #### B RN DISEASE MANAGEMENT, CRP, CMP ####[facility] Fchvxtlqoh0064 [place] [id number]. Farhat Leal CO2 [Moles/Vol] 23.7 mmol/L Normal 21.0-32.0 [facility] Comment on above: Performed By: #### B RN DISEASE MANAGEMENT, CRP, CMP ####[facility] Kkjuypoynu[address] [place] [address]Dr. Farhat Leal Creatinine [Mass/Vol] 2.08 mg/dL Critically high 0.70-1.30 [facility] Comment on above: Performed By: #### B RN DISEASE MANAGEMENT, CRP, CMP ####[facility] Sgknsrobdj05[address] [place] [phone]. Farhat Leal EGFR-AF [place] 38 mL/min/1.73m2 Critically low >=60 [facility] Comment on above: Performed By: #### B RN DISEASE MANAGEMENT, CRP, CMP ####[facility] D[address]zjmhssi[address] [place] [address]Dr. Farhat Leal EGFR-NON AF [place] 31 mL/min/1.73m2 Critically low >=60 [facility] Comment on above: Performed By: #### B RN DISEASE MANAGEMENT, CRP, CMP ####[facility] Myprfgfygs[address] [place] [address]Dr. Farhat Leal Globulin (S) [Mass/Vol] 3.7 g/dL Normal [facility] Comment on above: Performed By: #### B RN DISEASE MANAGEMENT, CRP, CMP ####[facility] Hqoeqqzscx[address] [place] [address]Dr. Farhat Leal Glucose [Mass/Vol] 315 mg/dL Critically high 74-106 T [facility] Comment on above: Performed By: #### B RN DISEASE MANAGEMENT, CRP, CMP ####[facility] Sfrbmylmum[address] [place], [place] [address]Dr. Farhat Leal Potassium [Moles/Vol] 4.0 mmol/L Normal 3.5-5.1 [facility] Comment on above: Performed By: #### B RN DISEASE MANAGEMENT, CRP, CMP ####[facility] Ltjdmbieei[address] [place], [place] [address]Dr. Farhat Leal Protein [Mass/Vol] 5.2 g/dL Critically low 6.4-8.2 [facility] Comment on above: Performed By: #### B RN DISEASE MANAGEMENT, CRP, CMP ####[facility] Wuqaovzzuv[address] [place], [place] [address]Dr. Farhat Leal Sodium [Moles/Vol] 131 mmol/L Critically low 136-145 Th [facility] Comment on above: Performed By: #### B RN DISEASE MANAGEMENT, CRP, CMP ####[facility] Mfriqflzvo[address] [place], [place] [address]Dr. Farhat Leal Urea nitrogen [Mass/Vol] 50.0 mg/dL Critically high 7.0-18.0 [facility] Comment on above: Performed By: #### B RN DISEASE MANAGEMENT, CRP, CMP ####[facility] Tgklixkslp[address] [place] [address]Dr. Farhat Leal Urea nitrogen/Creatinine [Mass ratio] 24.0 mg/mg Normal [facility] Comment on above: Performed By: #### B RN DISEASE MANAGEMENT, CRP, CMP ####[facility] Yaybzsbijo[address] [place] [address]Dr. Farhat Leal PROTIMEon 11-26-2021 INR Coag (PPP) [Relative time] 1.31 {INR} Normal [facility] Comment on above: Performed By: #### P T ####[facility] Zlgflcdqhq[address] [place] [address]Dr. Farhat Leal INR GUIDELINES SEE BELOW Normal [facility] Comment on above: Result Comment: MALINA RED INR: 2.0 - 3.0 CONDITIONS NOT LISTED BELOW 2.5 - 3.5 FOR PROSTHETIC HEART VALVE REPLACEMENT 2.5 - 3.5 RECURRENT THROMBOSIS Performed By: #### P T ####[facility] V[address]mluq[address] [place], [place] [address]Dr. Farhat Leal PT Coag (PPP) [Time] 13.9 s Critically high 9.0-11.6 [facility] Comment on above: Performed By: #### P T ####[facility] Loswnydmaf[address] [place], [place] [address]Dr. Madelynlorri Leal SED RATE BERKELEYERGREN 2021 SED RATE 87 mm/hr Critically high <=20 [facility] Comment on above: Performed By: #### S EDR ####[facility] [address]xef[address] [place], [place] [address]Dr. Farhat Leal BNPon 11-25-2021 Natriuretic peptide B (Bld) [Mass/Vol] 95056.0 pg/mL Critically high <=1,800.0 [facility] Comment on above: Performed By: #### C MP, BNP, CRP ####[facility] Iajznknvdc[address] [place], [place] [address]Dr. Farhat Leal CBC AUTO DIFFon 11-25-2021 BASO # 0.0 103/ul Normal 0.0-0.1 [facility] [place] Comment on above: Performed By: #### C BC ####[facility] [address] [place] [id number]. Farhat Leal Basophils/100 WBC (Bld) 0.4 % Normal 0.2-2.0 [facility] Comment on above: Performed By: #### C BC ####[facility] Ajrehvnjer[address] [place] [id number]. Farhat Leal EO # 0.1 103/ul Normal 0.0-0.7 [facility] Comment on above: Performed By: #### C BC ####[facility] Rpevvidxgt2[address] [place], [place] [id number]. Farhat Leal Eosinophils/100 WBC (Bld) 1.2 % Normal 0.9-7.0 [facility] [place] Comment on above: Performed By: #### C BC ####[facility] Kgklkagptr[address] [place], [place] [address]Dr. Farhat Leal Erythrocyte distribution width (RBC) [Ratio] 13.7 % Normal 11.0-15.0 [facility] [place] Comment on above: Performed By: #### C BC ####[facility] Mszrkepxfg90[address] [place], [place] [id number]. Farhat Leal Hematocrit (Bld) [Volume fraction] 29.6 % Critically low 42.0-54.0 [facility] [place] Comment on above: Performed By: #### C BC ####[facility] Tdyqlwyhpt2[address] [place], [place] [id number]. Farhat Leal Hemoglobin (Bld) [Mass/Vol] 9.3 g/dL Critically low 14.0-18.0 [facility] [place] Comment on above: Performed By: #### C BC ####[facility] Srwyvrgtug47[address] [place], [place] [address]Dr. Farhat Leal IG # 0.15 10e3/ul Critically high 0.00-0.03 [facility] Comment on above: Performed By: #### C BC ####[facility] Lyrnxooamz[address] [place], [place] [address]Dr. Farhat Leal IG % 1.4 % Critically high 0.0-0.5 [facility] Comment on above: Performed By: #### C BC ####[facility] U[address]eyuvbw[address] [place] [id number]. Farhat Leal LYMPH # 0.8 103/ul Critically low 1.2-3.8 [facility] Comment on above: Performed By: #### C BC ####[facility] Vzuyptkvrw07[address] [place] [id number]. Farhat Leal Lymphocytes/100 WBC (Bld) 7.3 % Critically low 20.5-60.0 [facility] [place] Comment on above: Performed By: #### C BC ####[facility] Thsgdafavu[address] [place] [id number]. Farhat Leal MANUAL DIFF REQ NO Normal [facility] Comment on above: Performed By: #### C BC ####[facility] Vnazuievjo4895 [place] [id number]. Farhat Leal MCH (RBC) [Entitic mass] 29.3 pg Normal 25.9-34.0 [facility] [place] Comment on above: Performed By: #### C BC ####[facility] Lwthauyauz5[address] [place] [id number]. Farhat Leal MCHC (RBC) [Mass/Vol] 31.4 g/dL Normal 29.9-35.2 [facility] Comment on above: Performed By: #### C BC ####[facility] Aiqbcrnbnu5104 [place] [id number]. Farhat Leal MCV (RBC) [Entitic vol] 93.4 fL Normal 80.0-94.0 [facility] [place] Comment on above: Performed By: #### C BC ####[facility] Oychgqmkrf0225 [place] [id number] Leal MONO # 1.3 103/ul Critically high 0.3-0.8 [facility] Comment on above: Performed By: #### C BC ####[facility] Slgetwnpsh1825 [place] [id number]. Farhat Leal Monocytes/100 WBC (Bld) 12.3 % Critically high 1.7-12.0 [facility] Comment on above: Performed By: #### C BC ####[facility] W[address]bqjbsj[address] [place] [address]Dr. Farhat Leal NEUT # 8.4 103/ul Critically high 1.4-6.5 [facility] Comment on above: Performed By: #### C BC ####[facility] Yqenxwqeke[address] [place] [address]Dr. Farhat Leal Neutrophils/100 WBC (Bld) 77.4 % Critically high 43.0-75.0 [facility] [place] Comment on above: Performed By: #### C BC ####[facility] E[address]wsdf[address]bf[address] [place] [address]Dr. Farhat Leal Platelet mean volume (Bld) [Entitic vol] 9.8 fL Normal 9.5-13.5 [facility] Comment on above: Performed By: #### C BC ####[facility] A[address]oxqzbxa[address] [place] [address]Dr. Farhat Leal PLT 390 103/ul Normal 150-450 [facility] Comment on above: Performed By: #### C BC ####[facility] Jdeifvowry[address] [place] [address]Dr. Farhat Leal RBC 3.17 106/ul Critically low 4.70-6.10 [facility] Comment on above: Performed By: #### C BC ####[facility] K[address]utduftc[address] [place] [address]Dr. Farhat Leal WBC 10.9 103/ul Normal 4.0-11.0 [facility] Comment on above: Performed By: #### C BC ####[facility] Qftxbhgmir1884 [place] [phone] Farhat Elvis CRPon 11-25-2021 CRP 27.2 mg/dL Critically high <=1.0 [facility] Comment on above: Performed By: #### C MP, BNP, CRP ####[facility] Knvcbdsmis7[address] [place] [phone] Leal PROF 14(COMP METB)on 10-11-2 022 Albumin [Mass/Vol] 1.5 g/dL Critically low 3.4-5.0 [facility] Comment on above: Performed By: #### C MP, BNP, CRP ####[facility] Vkebijkyhf[address] [place], [place] [address]Dr. Farhat Leal Albumin/Globulin [Mass ratio] 0.4 {ratio} Normal [facility] [place] Comment on above: Performed By: #### C MP, BNP, CRP ####[facility] Nipbidcuny25[address] [place], [place] [address]Dr. Farhat Leal ALP [Catalytic activity/Vol] 86 U/L Normal 46-116 [facility] [place] Comment on above: Performed By: #### C MP, BNP, CRP ####[facility] Dwzqtbfled7523[address] [place], [place] [address]Dr. Farhat Leal ALT [Catalytic activity/Vol] 34 U/L Normal 16-63 [facility] [place] Comment on above: Performed By: #### C MP, BNP, CRP ####[facility] Rrswnrvogj[address] [place], [place] [address]Dr. Farhat Leal Anion gap [Moles/Vol] 17.8 mmol/L Normal [facility] Comment on above: Performed By: #### C MP, BNP, CRP ####[facility] Phmewqienv32[address] [place], [place] [address]Dr. Farhat Leal AST [Catalytic activity/Vol] 48 U/L Critically high 15-37 [facility] [place] Comment on above: Performed By: #### C MP, BNP, CRP ####[facility] Ozrfrgmbjj[address] [place], [place] [address]Dr. Farhat Leal Bilirubin [Mass/Vol] 0.8 mg/dL Normal 0.2-1.0 [facility] [place] Comment on above: Performed By: #### C MP, BNP, CRP ####[facility] Tfsggtcrce[address] [place], [place] [address]Dr. Farhat Leal Calcium [Mass/Vol] 8.3 mg/dL Critically low 8.5-10.1 [facility] Comment on above: Performed By: #### C MP, BNP, CRP ####[facility] Txnqjsbwtg64[address] [place] [address]Dr. Farhat Leal Chloride [Moles/Vol] 97 mmol/L Critically low 98-107 [facility] Comment on above: Performed By: #### C MP, BNP, CRP ####[facility] Oklysfbmsz7[address] [place] [address]Dr. Farhat Leal CO2 [Moles/Vol] 23.0 mmol/L Normal 21.0-32.0 [facility] Comment on above: Performed By: #### C MP, BNP, CRP ####[facility] Eqheeminqa30[address] [place] [address]Dr. Farhat Leal Creatinine [Mass/Vol] 1.68 mg/dL Critically high 0.70-1.30 [facility] [place] Comment on above: Performed By: #### C MP, BNP, CRP ####[facility] Vqbmnxkrcq[address] [place], [place] [address]Dr. Farhat Leal EGFR-AF [place] 48 mL/min/1.73m2 Critically low >=60 [facility] [place] Comment on above: Performed By: #### C MP, BNP, CRP ####[facility] Fhkwxaopnv6525[address] [place], [place] [address]Dr. Farhat Leal EGFR-NON AF [place] 40 mL/min/1.73m2 Critically low >=60 [facility] [place] Comment on above: Performed By: #### C MP, BNP, CRP ####[facility] Ehtdrhcpzj[address] [place], [place] [address]Dr. Farhat Leal Globulin (S) [Mass/Vol] 3.9 g/dL Normal [facility] [place] Comment on above: Performed By: #### C MP, BNP, CRP ####[facility] Uce[address]wvc[address] [place] [address]Dr. Farhat Leal Glucose [Mass/Vol] 282 mg/dL Critically high 74-106 [facility] Comment on above: Performed By: #### C MP, BNP, CRP ####[facility] Jvowsoarek[address] [place], [place] [address]Dr. Farhat Leal Potassium [Moles/Vol] 4.8 mmol/L Normal 3.5-5.1 [facility] [place] Comment on above: Performed By: #### C MP, BNP, CRP ####[facility] Tewefxrzls[address] [place] [address]Dr. Farhat Leal Protein [Mass/Vol] 5.4 g/dL Critically low 6.4-8.2 [facility] Comment on above: Performed By: #### C MP, BNP, CRP ####[facility] Yxwjjayyuo[address] [place], [place] [address]Dr. Farhat Leal Sodium [Moles/Vol] 133 mmol/L Critically low 136-145 [facility] Comment on above: Performed By: #### C MP, BNP, CRP ####[facility] Pchsemmmlk12[address] [place], [place] [address]Dr. Farhat Leal Urea nitrogen [Mass/Vol] 40.0 mg/dL Critically high 7.0-18.0 [facility] [place] Comment on above: Performed By: #### C MP, BNP, CRP ####[facility] Cwlathktcf0132[address] [place], [place] [address]Dr. Farhat Leal Urea nitrogen/Creatinine [Mass ratio] 23.8 mg/mg Normal [facility] [place] Comment on above: Performed By: #### C MP, BNP, CRP ####[facility] Mxbrbfogfd[address] [place], [place] [address]Dr. Farhat Leal PROTIMEon 11-25-2021 INR Coag (PPP) [Relative time] 1.48 {INR} Normal [facility] [place] Comment on above: Performed By: #### P T ####[facility] Nornfdxwoe[address] [place], [place] [address]Dr. Farhat Leal INR GUIDELINES SEE BELOW Normal [facility] Comment on above: Result Comment: MALINA RED INR: 2.0 - 3.0 CONDITIONS NOT LISTED BELOW 2.5 - 3.5 FOR PROSTHETIC HEART VALVE REPLACEMENT 2.5 - 3.5 RECURRENT THROMBOSIS Performed By: #### P T ####[facility] Ouhvzniydt[address] [place], [place] [address]Dr. Farhat Leal PT Coag (PPP) [Time] 15.6 s Critically high 9.0-11.6 [facility] Comment on above: Performed By: #### P T ####[facility] Jwkmyxtxzz14[address] [place], [place] [address]Dr. Farhat Leal SED RATE WESTERGRENon 2021 SED RATE 76 mm/hr Critically high <=20 [facility] Comment on above: Performed By: #### S EDR ####[facility] Denqtoxidr34[address] [place], [place] [address]Dr. Farhat Leal BNPon 11-24-2021 Natriuretic peptide B (Bld) [Mass/Vol] 49348.0 pg/mL Critically high <=1,800.0 [facility] Comment on above: Performed By: #### B RN DISEASE MANAGEMENT, CMP, CRP ####[facility] Dfujwhgcct480[address] [place], [place] [address]Dr. Farhat Leal CBC AUTO DIFFon 11-24-2021 BASO # 0.0 103/ul Normal 0.0-0.1 [facility] [place] Comment on above: Performed By: #### C BC ####[facility] Gcjfxqldja224[address] [place], [place] [address]Dr. Farhat Leal Basophils/100 WBC (Bld) 0.3 % Normal 0.2-2.0 [facility] Comment on above: Performed By: #### C BC ####[facility] Unntdypkvs[address] [place], [place] [address]Dr. Farhat Leal EO # 0.2 103/ul Normal 0.0-0.7 [facility] Comment on above: Performed By: #### C BC ####[facility] Vtwtweibqx[address] [place], [place] [address]Dr. Farhat Leal Eosinophils/100 WBC (Bld) 1.2 % Normal 0.9-7.0 [facility] Comment on above: Performed By: #### C BC ####[facility] Anzckzfeps[address] [place], [place] [address]Dr. Farhat Leal Erythrocyte distribution width (RBC) [Ratio] 13.5 % Normal 11.0-15.0 [facility] Comment on above: Performed By: #### C BC ####[facility] Ehneisocls[address] [place] [address]Dr. Farhat Leal Hematocrit (Bld) [Volume fraction] 31.1 % Critically low 42.0-54.0 [facility] [place] Comment on above: Performed By: #### C BC ####[facility] Lojccdzuqg[address] [place] [address]Dr. Madelynlorri Leal Hemoglobin (Bld) [Mass/Vol] 10.0 g/dL Critically low 14.0-18.0 [facility] Comment on above: Performed By: #### C BC ####[facility] [address] [place] [address]Dr. Farhat Leal IG # 0.13 10e3/ul Critically high 0.00-0.03 [facility] Comment on above: Performed By: #### C BC ####[facility] Doegsqchzp2814[address] [place], [place] [address]Dr. Farhat Leal IG % 1.0 % Critically high 0.0-0.5 [facility] Comment on above: Performed By: #### C BC ####[facility] Kyoitmsaov[address] [place], [place] [address]Dr. Madelynlorri Leal LYMPH # 0.7 103/ul Critically low 1.2-3.8 [facility] Comment on above: Performed By: #### C BC ####[facility] Zgbxvrpcvr3[address] [place] [address]Dr. Farhat Leal Lymphocytes/100 WBC (Bld) 4.9 % Critically low 20.5-60.0 [facility] Comment on above: Performed By: #### C BC ####[facility] W[address]oe[address]pe[address] [place] [address]Dr. Madelynlorri Leal MANUAL DIFF REQ NO Normal [facility] Comment on above: Performed By: #### C BC ####[facility] Vnttnicezu14[address] [place] [address]Dr. Farhat Leal MCH (RBC) [Entitic mass] 29.6 pg Normal 25.9-34.0 [facility] Comment on above: Performed By: #### C BC ####[facility] Ffjcenppyk35[address] [place] [id number]. Farhat Elvis MCHC (RBC) [Mass/Vol] 32.2 g/dL Normal 29.9-35.2 [facility] Comment on above: Performed By: #### C BC ####[facility] Boqcmowdyb25[address] [place] [id number]. Farhat Leal MCV (RBC) [Entitic vol] 92.0 fL Normal 80.0-94.0 [facility] Comment on above: Performed By: #### C BC ####[facility] Rkmeqnuyvs6305 [place] [id number]. Farhat Leal MONO # 1.3 103/ul Critically high 0.3-0.8 [facility] Comment on above: Performed By: #### C BC ####[facility] Qrucyrkgou66[address] [place] [address]Dr. Farhat Leal Monocytes/100 WBC (Bld) 9.6 % Normal 1.7-12.0 [facility] Comment on above: Performed By: #### C BC ####[facility] Nothlgxcbg[address] [place], [place] [address]Dr. Farhat Leal NEUT # 11.2 103/ul Critically high 1.4-6.5 [facility] Comment on above: Performed By: #### C BC ####[facility] Wwkocwlnrg[address] [place], [place] [address]Dr. Farhat Leal Neutrophils/100 WBC (Bld) 83.0 % Critically high 43.0-75.0 [facility] Comment on above: Performed By: #### C BC ####[facility] Owbaealwkf[address] [place], [place] [id number]. Farhat Leal Platelet mean volume (Bld) [Entitic vol] 9.5 fL Normal 9.5-13.5 [facility] Comment on above: Performed By: #### C BC ####[facility] Lsiiaxfgsp[address]64[address] [place], [place] [address]Dr. Farhat Leal PLT 395 103/ul Normal 150-450 [facility] Comment on above: Performed By: #### C BC ####[facility] Lzhjnllaqw5919 [place] [id number]. Farhat Leal RBC 3.38 106/ul Critically low 4.70-6.10 [facility] Comment on above: Performed By: #### C BC ####[facility] Fwvylqopnr7546 [place], [place] [address]Ws. Farhat Leal WBC 13.4 103/ul Critically high 4.0-11.0 [facility] Comment on above: Performed By: #### C BC ####[facility] Dapakzvmrj9343 [place] [id number]. Farhat Leal CRPon 11-24-2021 CRP 27.8 mg/dL Critically high <=1.0 [facility] Comment on above: Performed By: #### B RN DISEASE MANAGEMENT, CMP, CRP ####[facility] Knsqdokgqn40[address] [place], [place] [id number]. Farhat Leal CULTURE ANAEROBICon 11-25-19 22 CULTURE ANAEROBIC Culture Observations : NO GROWTH OF ANAEROBES AT 72 HOURS. [facility] Comment on above: Performed By: #### A NACX ####[facility] Uzdpkmxhnn[address] [place], [place] [address]Dr. Farhat Leal CULTURE ANAEROBIC Culture Observations : NO GROWTH OF ANAEROBES AT 72 HOURS. [facility] Comment on above: Performed By: #### A NACX ####[facility] Dabijnpoaz[address] [place], [place] [address]Dr. Farhat Leal CULTURE ANAEROBIC Culture Observations : No growth of anaerobes at 72 hours. [facility] Comment on above: Performed By: #### A NACX ####[facility] Xktznjaqai8[address] [place], [place] [id number]. Farhat Leal CULTURE ANAEROBIC Culture Observations : No growth of anaerobes at 72 hours. [facility] Comment on above: Performed By: #### A NACX ####[facility] Ybietfohfd[address] [place], [place] [id number]. Farhat Leal CULTURE URINEon 11-24-2021 CULTURE URINE Culture Observations : NO GROWTH. [facility] Comment on above: Performed By: #### U RCX ####[facility] Okvcufsxfk[address] [place], [place] [address]Dr. Farhat Leal ECHOCARDIO M/2D COMPLETEon 1 ECHOCARDIO M/2D COMPLETE Normal [facility] ER URINE PROFILEon 2 Bilirubin Ql (U) Negative Normal NEGATIVE [facility] Comment on above: Performed By: #### E RUR ####[facility] Kgvjnzyfse[address] [place], [place] [address]Dr. Farhat Leal Clarity (U) CLEAR Normal CLEAR [facility] [place] Comment on above: Performed By: #### E RUR ####[facility] Uxbugbnaia146[address] [place], [place] [address]Dr. Farhat Leal Color (U) YELLOW Normal YELLOW [facility] Comment on above: Performed By: #### E RUR ####[facility] Ibyflzeujg990[address] [place], [place] [address]Dr. Farhat Leal ERUAHD A micrscopic examination will be performed if indicated. Normal [facility] Comment on above: Performed By: #### E RUR ####[facility] Oaprohygxt[address] [place], [place] [address]Dr. Farhat Leal Glucose Ql (U) Negative Normal NEGATIVE [facility] Comment on above: Performed By: #### E RUR ####[facility] Gjknmmujoc45[address] [place], [place] [address]Dr. Farhat Leal Hemoglobin Ql (U) Negative Normal NEGATIVE [facility] Comment on above: Performed By: #### E RUR ####[facility] Wniagkvkbe120[address] [place], [place] [address]Dr. Farhat Leal Ketones Ql (U) TRACE Abnormal NEGATIVE [facility] Comment on above: Performed By: #### E RUR ####[facility] Kuvczsefds[address] [place], [place] [address]Dr. Farhat Leal LEUKOCYTES Negative Normal NEGATIVE [facility] Comment on above: Performed By: #### E RUR ####[facility] Vubqzdupuz55[address] [place], [place] [address]Dr. Farhat Leal Nitrite Ql (U) Negative Normal NEGATIVE [facility] Comment on above: Performed By: #### E RUR ####[facility] Jxpzddwioc[address]33[address] [place], [place] [address]Dr. Farhat Leal pH (U) 5.5 [pH] Normal 5-9 [facility] [place] Comment on above: Performed By: #### E RUR ####[facility] Xljrkkvuek94[address] [place], [place] [address]Dr. Farhat Leal SPEC GRAVITY 1.015 Normal 1.005-<=1.[address] [place] [address] Comment on above: Performed By: #### E RUR ####[facility] Fvksdwooxs[address] [place], [place] [address]Dr. Farhat Leal UA PROTEIN Negative Normal NEGATIVE/ TRACE [facility] [place] Comment on above: Performed By: #### E RUR ####[facility] Rkziolfhcj[address] [place], [place] [address]Dr. Farhat Leal UR MICRO IND NOT INDICATED Normal [facility] Comment on above: Performed By: #### E RUR ####[facility] Crtlgbmbrm[address] [place], [place] [address]Dr. Farhat Leal Urobilinogen Qn (U) 0.2 {Boyd'U}/dL Normal 0.2 - 1. 0 [facility] [place] Comment on above: Performed By: #### E RUR ####[facility] Kgyficbdgt67[address] [place], [place] [address]Dr. Farhat Leal GRAM STAINon 11-24-2021 DIPHTHEROIDS Normal [facility] Comment on above: Performed By: #### G STAIN ####[facility] W[address]zmbcchzl[address] [place], [place] [address]Dr. Farhat Leal EPITHELIALS Normal [facility] Comment on above: Performed By: #### G STAIN ####[facility] Qrjwvoxoya[address] [place], [place] [address]Dr. Farhat Leal FUNGAL ELEMENTS Normal [facility] Comment on above: Performed By: #### G STAIN ####[facility] Repflqeyqb[address] [place], [place] [address]Dr. Farhat Leal GRAM NEG BACILLI Normal [facility] Comment on above: Performed By: #### G STAIN ####[facility] E[address]rqiopcz[address] [place] [address]Dr. Farhat Leal GRAM NEG DIPPLOCOCCI Normal [facility] Comment on above: Performed By: #### G STAIN ####[facility] Yxvutwoqch[address] [place] [address]Dr. Farhat Leal GRAM POS BACILLI Normal [facility] Comment on above: Performed By: #### G STAIN ####[facility] [address] [place] [address]Dr. Farhat Leal GRAM POSITIVE COCCI FEW Normal [facility] Comment on above: Performed By: #### G STAIN ####[facility] Vugljyweqe[address] [place], [place] [address]Dr. Farhat Leal GRAM STAIN SOURCE RT ACHILLES TENDON Normal [facility] Comment on above: Performed By: #### G STAIN ####[facility] Ayvqervaxf[address] [place], [place] [address]Dr. Farhat Leal GS_DIPTH Normal [facility] Comment on above: Performed By: #### G STAIN ####[facility] Hwqveekqdb8[address] [place], [place] [address]Dr. Farhat Leal WBC RARE Normal [facility] Comment on above: Performed By: #### G STAIN ####[facility] Rizbybdfdu220[address] [place], [place] [address]Dr. Farhat Leal COMMENTS NO ORGANISMS OBSERVED Normal [facility] Comment on above: Performed By: #### G STAIN ####[facility] Wkpiucbwvz[address] [place] [address]Dr. Farhat Leal DIPHTHEROIDS Normal [facility] Comment on above: Performed By: #### G STAIN ####[facility] Pywjkitllx64[address] [place], [place] [address]Dr. Farhat Leal EPITHELIALS Normal [facility] Comment on above: Performed By: #### G STAIN ####[facility] Gypptrmggx129[address] [place], [place] [address]Dr. Farhat Leal FUNGAL ELEMENTS Normal [facility] Comment on above: Performed By: #### G STAIN ####[facility] Acfscdbsml40[address] [place] [address]Dr. Farhat Leal GRAM NEG BACILLI Normal The [facility] Comment on above: Performed By: #### G STAIN ####[facility] Gwebvgkdne94[address] [place] [address]Dr. Farhat Leal GRAM NEG DIPPLOCOCCI Normal [facility] Comment on above: Performed By: #### G STAIN ####[facility] Ljkpvjcnnn26[address] [place] [address]Dr. Farhat Leal GRAM POS BACILLI Normal The [facility] Comment on above: Performed By: #### G STAIN ####[facility] Knktqwgvur[address] [place], [place] [address]Dr. Farhat Leal GRAM POSITIVE COCCI Normal The [facility] Comment on above: Performed By: #### G STAIN ####[facility] Hgsvofkjhr[address] [place], [place] [address]Dr. Farhat Leal GRAM STAIN SOURCE RT CALCANEOUS Normal [facility] Comment on above: Performed By: #### G STAIN ####[facility] Wjbldbtcwp[address] [place] [address]Dr. Farhat Leal GS_DIPTH Normal [facility] Comment on above: Performed By: #### G STAIN ####[facility] Isxinxflbk2[address] [place] [address]Dr. Farhat Leal WBC RARE Normal [facility] Comment on above: Performed By: #### G STAIN ####[facility] Qwezatfcdo[address] [place] [address]Dr. Farhat Leal DIPHTHEROIDS Normal [facility] Comment on above: Performed By: #### G STAIN ####[facility] Mhmgjyfhqp[address] [place] [address]Dr. Farhat Leal EPITHELIALS Normal [facility] Comment on above: Performed By: #### G STAIN ####[facility] Dxwbiqvdrj99[address] [place] [address]Dr. Farhat Leal FUNGAL ELEMENTS Normal [facility] Comment on above: Performed By: #### G STAIN ####[facility] Wmuepnbpof[address] [place] [id number]. Farhat Leal GRAM NEG BACILLI FEW Normal The [facility] Comment on above: Performed By: #### G STAIN ####[facility] Cfgahgifqz5352 [place] [id number]. Farhat Leal GRAM NEG DIPPLOCOCCI Normal The [facility] Comment on above: Performed By: #### G STAIN ####[facility] Iscjtokbdw20[address] [place] [address]Dr. Farhat Leal GRAM POS BACILLI Normal The [facility] Comment on above: Performed By: #### G STAIN ####[facility] Saqzpnnovt38[address] [place] [address]Dr. Farhat Leal GRAM POSITIVE COCCI FEW Normal The [facility] Comment on above: Performed By: #### G STAIN ####[facility] Vurlgsjrwf9[address] [place], [place] [address]Dr. Farhat Leal GRAM STAIN SOURCE #2 Rt foot abscess Normal [facility] Comment on above: Performed By: #### G STAIN ####[facility] Lksdbyhkxs[address] [place] [address]Dr. Farhat Leal GS_DIPTH Normal [facility] Comment on above: Performed By: #### G STAIN ####[facility] Xmooymwoan9[address] [place] [address]Dr. Farhat Leal WBC RARE Normal [facility] Comment on above: Performed By: #### G STAIN ####[facility] Igvypaxzmy0[address] [place] [address]Dr. Farhat Leal DIPHTHEROIDS Normal [facility] Comment on above: Performed By: #### G STAIN ####[facility] Urjvcfnjai24[address] [place] [address]Dr. Farhat Leal EPITHELIALS Normal [facility] Comment on above: Performed By: #### G STAIN ####[facility] Ubfskjfbos5[address] [place] [address]Dr. Farhat Leal FUNGAL ELEMENTS Normal [facility] Comment on above: Performed By: #### G STAIN ####[facility] Cvqnepsoqi31[address] [place] [address]Dr. Farhat Leal GRAM NEG BACILLI FEW Normal The [facility] Comment on above: Performed By: #### G STAIN ####[facility] Xglmtsfauc05[address] [place] [address]Dr. Farhat Leal GRAM NEG DIPPLOCOCCI Normal [facility] Comment on above: Performed By: #### G STAIN ####[facility] Rdauoarwad6306 [place] [address]Dr. Farhat Leal GRAM POS BACILLI Normal The [facility] Comment on above: Performed By: #### G STAIN ####[facility] Rvgahmetii9[address] [place], [place] [address]Dr. Farhat Leal GRAM POSITIVE COCCI FEW Normal The [facility] Comment on above: Performed By: #### G STAIN ####[facility] Zkktiaeyij0427[address] [place], [place] [address]Dr. Farhat Leal GRAM STAIN SOURCE #1 Rt foot abscess Normal [facility] Comment on above: Performed By: #### G STAIN ####[facility] Foldgdnscz[address] [place], [place] [address]Dr. Farhat Leal GS_DIPTH Normal [facility] Comment on above: Performed By: #### G STAIN ####[facility] Bczftgfavh4540[address] [place], [place] [address]Dr. Farhat Leal WBC NONE SEEN Normal [facility] Comment on above: Performed By: #### G STAIN ####[facility] Vnslcjnfkv700[address] [place], [place] [address]Dr. Farhat Leal POINT OF CARE GLUCOSEon 11-15 0 Glucose [Mass/Vol] 331 mg/dL Critically high 74-106 [facility] Comment on above: Performed By: #### P OCGLUC ####[facility] Rapojhxvxy252[address] [place], [place] [address]Dr. Farhat Leal Glucose [Mass/Vol] 236 mg/dL Critically high 74-106 [facility] Comment on above: Performed By: #### P OCGLUC ####[facility] Badizrkgse835[address] [place], [place] [address]Dr. Farhat Leal PROF 14(COMP METB)on 022 Albumin [Mass/Vol] 1.6 g/dL Critically low 3.4-5.0 [facility] Comment on above: Performed By: #### B RN DISEASE MANAGEMENT, CMP, CRP ####[facility] Rneziflhxr[address] [place] [address]Dr. Farhat Leal Albumin/Globulin [Mass ratio] 0.4 {ratio} Normal [facility] Comment on above: Performed By: #### B RN DISEASE MANAGEMENT, CMP, CRP ####[facility] Ucuimtvcdp[address] [place] [address]Dr. Farhat Leal ALP [Catalytic activity/Vol] 94 U/L Normal 46-116 [facility] Comment on above: Performed By: #### B RN DISEASE MANAGEMENT, CMP, CRP ####[facility] Eynsrvssrb4[address] [place] [address]Dr. Farhat Leal ALT [Catalytic activity/Vol] 49 U/L Normal 16-63 [facility] Comment on above: Performed By: #### B RN DISEASE MANAGEMENT, CMP, CRP ####[facility] Ghclobnxvc144[address] [place], [place] [address]Dr. Farhat Leal Anion gap [Moles/Vol] 12.5 mmol/L Normal [facility] Comment on above: Performed By: #### B RN DISEASE MANAGEMENT, CMP, CRP ####[facility] Sxrbzthedo[address] [place], [place] [address]Dr. Farhat Leal AST [Catalytic activity/Vol] 102 U/L Critically high 15-37 [facility] Comment on above: Performed By: #### B RN DISEASE MANAGEMENT, CMP, CRP ####[facility] Gdopdzdmow[address] [place] [address]Dr. Farhat Leal Bilirubin [Mass/Vol] 0.8 mg/dL Normal 0.2-1.0 [facility] Comment on above: Performed By: #### B RN DISEASE MANAGEMENT, CMP, CRP ####[facility] Ssbghduowk3540[address] [place], [place] [address]Dr. Farhat Leal Calcium [Mass/Vol] 8.4 mg/dL Critically low 8.5-10.1 [facility] Comment on above: Performed By: #### B RN DISEASE MANAGEMENT, CMP, CRP ####[facility] Fklyfejprb87[address] [place] [id number]. Farhat Leal Chloride [Moles/Vol] 96 mmol/L Critically low 98-107 [facility] Comment on above: Performed By: #### B RN DISEASE MANAGEMENT, CMP, CRP ####[facility] Xlobfduixa18[address] [place] [address]Dr. Farhat Leal CO2 [Moles/Vol] 24.8 mmol/L Normal 21.0-32.0 [facility] Comment on above: Performed By: #### B RN DISEASE MANAGEMENT, CMP, CRP ####[facility] Xeuyodchce5[address] [place] [address]Dr. Farhat Leal Creatinine [Mass/Vol] 1.36 mg/dL Critically high 0.70-1.30 [facility] Comment on above: Performed By: #### B RN DISEASE MANAGEMENT, CMP, CRP ####[facility] Vzzosmkimb109[address] [place], [place] [address]Dr. Farhat Leal EGFR-AF [place]IZ[place] >60 Normal >=60 [facility] Comment on above: Performed By: #### B RN DISEASE MANAGEMENT, CMP, CRP ####[facility] Quajtqvrrc32[address] [place], [place] [address]Dr. Farhat Leal EGFR-NON AF [place] CITIZ[place] 51 mL/min/1.73m2 Critically low >=60 [facility] Comment on above: Performed By: #### B RN DISEASE MANAGEMENT, CMP, CRP ####[facility] Agypuicuma[address] [place] [address]Dr. Farhat Leal Globulin (S) [Mass/Vol] 4.1 g/dL Normal [facility] Comment on above: Performed By: #### B RN DISEASE MANAGEMENT, CMP, CRP ####[facility] Fgxulhvfbk4375 [place] [address]Dr. Farhat Leal Glucose [Mass/Vol] 204 mg/dL Critically high 74-106 [facility] Comment on above: Performed By: #### B RN DISEASE MANAGEMENT, CMP, CRP ####[facility] Xupeekfqgt4454 [place] [address]Dr. Farhat Leal Potassium [Moles/Vol] 4.3 mmol/L Normal 3.5-5.1 [facility] Comment on above: Performed By: #### B RN DISEASE MANAGEMENT, CMP, CRP ####[facility] Pfotgypeni34[address] [place] [address]Dr. Farhat Leal Protein [Mass/Vol] 5.7 g/dL Critically low 6.4-8.2 Th [facility] Comment on above: Performed By: #### B RN DISEASE MANAGEMENT, CMP, CRP ####[facility] Nuolcfouzr3112[address] [place], [place] [address]Dr. Farhat Leal Sodium [Moles/Vol] 129 mmol/L Critically low 136-145 Th [facility] Comment on above: Performed By: #### B RN DISEASE MANAGEMENT, CMP, CRP ####[facility] Uerjdgskom176[address] [place], [place] [address]Dr. Farhat Leal Urea nitrogen [Mass/Vol] 41.0 mg/dL Critically high 7.0-18.0 [facility] Comment on above: Performed By: #### B RN DISEASE MANAGEMENT, CMP, CRP ####[facility] Nkajxmubts[address] [place], [place] [address]Dr. Farhat Leal Urea nitrogen/Creatinine [Mass ratio] 30.1 mg/mg Normal [facility] Comment on above: Performed By: #### B RN DISEASE MANAGEMENT, CMP, CRP ####[facility] Qrvlmfxtoo624[address] [place], [place] [address]Dr. Farhat Leal PROTIMEon 11-24-2021 INR Coag (PPP) [Relative time] 2.20 {INR} Normal [facility] Comment on above: Performed By: #### P T ####[facility] Qvsxxtjtlp440[address] [place], [place] [address]Dr. Farhat Leal INR GUIDELINES SEE BELOW Normal [facility] Comment on above: Result Comment: MALINA RED INR: 2.0 - 3.0 CONDITIONS NOT LISTED BELOW 2.5 - 3.5 FOR PROSTHETIC HEART VALVE REPLACEMENT 2.5 - 3.5 RECURRENT THROMBOSIS Performed By: #### P T ####[facility] Rlswfpulbk4930[address] [place], [place] [address]Dr. Farhat Leal PT Coag (PPP) [Time] 22.6 s Critically high 9.0-11.6 [facility] Comment on above: Performed By: #### P T ####[facility] Zznowmoqje9647 [place] [id number]. Farhat Elvis [facility] 80 mm/hr Critically high <=20 [facility] Comment on above: Performed By: #### S EDR ####[facility] Nokqrqsbzt[address] [place], [place] [id number]. Farhat Elvsi BLOOD CULTURE ID PANELon A. baumannii Not detected Normal NOT DETECTED The [facility] Comment on above: Performed By: #### B CID2 ####[facility] Rdckatnfaj2432[address] [place], [place] [address]Dr. Farhat Elvis Bacteriodes fragilis Not detected Normal NOT DETECTED [facility] Comment on above: Performed By: #### B CID2 ####[facility] Sawjnudhqg64[address] [place], [place] [address]Dr. Farhat Elvis BCID CONTROLS PASSED Normal [facility] Comment on above: Performed By: #### B CID2 ####[facility] Bqzcpuewoi[address] [place], [place] [id number]. Farhat Leal BCIDBTHD BLOOD CULTURE BOTTLE INFORMATION Normal [facility] Comment on above: Performed By: #### B CID2 ####[facility] Kiocjekicl4583 [place] [id number]. Farhat Leal BCIDHD1 ANTIMICROBIAL RESISTANCE GENES Normal [facility] Comment on above: Performed By: #### B CID2 ####[facility] Ppbkxysxhv9[address] [place], [place] [address]Dr. Madelynlorri Leal BCIDHD2 SEE BELOW Normal [facility] Comment on above: Result Comment: Note : Antimicrobial resitance can occur via multiple mechanisms. A Not Detected result for the [employer] antomicrobial resistance gene assays does not indicate antimicrobial susceptibility. Subculturing is required for species identification and susceptibility testing of isolates. Performed By: #### B CID2 ####[facility] Zfnhfepsgt157[address] [place], [place] [address]Dr. Farhat Elvis BCIDHD3 Positive Normal [facility] Comment on above: Performed By: #### B CID2 ####[facility] Jbnvfddmqi2697 [place] [address]Dr. Farhat Leal BCIDHD4 Negative Normal [facility] Comment on above: Performed By: #### B CID2 ####[facility] Huxzzxvxeb6624 [place] [address]Dr. Farhat Leal BCIDHD5 YEAST Normal [facility] Comment on above: Performed By: #### B CID2 ####[facility] Nwmcplvqbx7[address] [place], [place] [address]Dr. Farhat Leal Bottle Set: Set 1 Normal [facility] Comment on above: Performed By: #### B CID2 ####[facility] Wlvldsqulw824[address] [place], [place] [address]Dr. Farhat Leal Bottle: Aerobic Normal [facility] Comment on above: Performed By: #### B CID2 ####[facility] Dbliypmpws184[address] [place], [place] [address]Dr. Farhat Leal C. neoformans/gattii Not detected Normal NOT DETECTED [facility] Comment on above: Performed By: #### B CID2 ####[facility] Otxdfumvkf24[address] [place], [place] [address]Dr. Farhat [facility] Disha albicans Not detected Normal NOT DETECTED [facility] Comment on above: Performed By: #### B CID2 ####[facility] Ghkmwaqmlq164[address] [place], [place] [address]Dr. Farhat Leal Disha auris Not detected Normal NOT DETECTED The [facility] Comment on above: Performed By: #### B CID2 ####[facility] Lnhnxrejmn[address] [place], [place] [address]Dr. Farhat Leal Disha glabrata Not detected Normal NOT DETECTED [facility] Comment on above: Performed By: #### B CID2 ####[facility] Qudizagbnd879[address] [place], [place] [address]Dr. Farhat Leal Disha Krusei Not detected Normal NOT DETECTED The [facility] Comment on above: Performed By: #### B CID2 ####[facility] Lqpwcmwoas5[address] [place] [address]Dr. Madelynlorri Elvis Disha Parapsilosis Not detected Normal NOT DETECTED [facility] Comment on above: Performed By: #### B CID2 ####[facility] Ngvfpbwwmq913[address] [place], [place] [address]Dr. Farhat Elvis Disha Tropicalis Not detected Normal NOT DETECTED [facility] Comment on above: Performed By: #### B CID2 ####[facility] Chzqpaezqs8[address] [place], [place] [address]Dr. Farhat Leal CTX-M Resistant Gene Not Applicable Normal NOT DETECTE D [facility] Comment on above: Performed By: #### B CID2 ####[facility] Hylezbhljt179[address] [place], [place] [address]Dr. Farhat Leal E. Cloacae complex Not detected Normal NOT DETECTED [facility] Comment on above: Performed By: #### B CID2 ####[facility] Zohrhvswhg[address] [place], [place] [address]Dr. Farhat Leal E. faecalis Not detected Normal NOT DETECTED [facility] Comment on above: Performed By: #### B CID2 ####[facility] Iguheyzcha7564[address] [place], [place] [address]Dr. Farhat Leal E. faecium Not detected Normal NOT DETECTED [facility] Comment on above: Performed By: #### B CID2 ####[facility] Tjmdzyocpw1720[address] [place], [place] [address]Dr. Farhat Leal Enterobacteriaceae Not detected Normal NOT DETECTED [facility] Comment on above: Performed By: #### B CID2 ####[facility] Fshurjaaod7217[address] [place], [place] [address]Dr. Farhat Leal Escherichia coli Not detected Normal NOT DETECTED [facility] Comment on above: Performed By: #### B CID2 ####[facility] Boyawegssx[address] [place], [place] [address]Dr. Farhat Leal H. influenzae Not detected Normal NOT DETECTED The [facility] Comment on above: Performed By: #### B CID2 ####[facility] Egqorebjut230[address] [place], [place] [address]Dr. Farhat Leal IMP Resistant Gene Not Applicable Normal NOT DETECTED [facility] Comment on above: Performed By: #### B CID2 ####[facility] Sakmlsdsgd15[address] [place] [address]Dr. Farhat Leal K. oxytoca Not detected Normal NOT DETECTED [facility] Comment on above: Performed By: #### B CID2 ####[facility] Zjhemoxlbz2270 [place] [address]Dr. Farhat Leal K. pneumoniae Not detected Normal NOT DETECTED The [facility] Comment on above: Performed By: #### B CID2 ####[facility] Fzieobntxb6875[address] [place], [place] [address]Dr. Farhat Leal Klebsiella aerogenes Not detected Normal NOT DETECTED [facility] Comment on above: Performed By: #### B CID2 ####[facility] Nvwyjwxmad7[address] [place], [place] [address]Dr. Farhat Leal KPC Resistant Gene Not Applicable Normal NOT DETECTED [facility] Comment on above: Performed By: #### B CID2 ####[facility] Szpumdwqyl[address] [place], [place] [address]Dr. Farhat Leal List. monocytogenes Not detected Normal NOT DETECTED [facility] Comment on above: Performed By: #### B CID2 ####[facility] Xgectjdatk[address] [place], [place] [address]Dr. Farhat Leal Mcr-1 Resistant Gene Not Applicable Normal NOT DETECTE D [facility] Comment on above: Performed By: #### B CID2 ####[facility] Wbcasnzwqt867[address] [place], [place] [address]Dr. Madelynlan Elvis mecA/C Not Applicable Normal NOT DETECTED The [facility] Comment on above: Performed By: #### B CID2 ####[facility] Zljrnqgyab65[address] [place], [place] [address]Dr. Farhat Leal mecA/C MREJ Detected Abnormal NOT DETECTED The [facility] Comment on above: Performed By: #### B CID2 ####[facility] Agsadplmkj1114[address] [place], [place] [address]Dr. Farhat Leal N. meningitidis Not detected Normal NOT DETECTED The [facility] Comment on above: Performed By: #### B CID2 ####[facility] Gblmdcuhfp9724 [place] [address]Dr. Farhat Leal NDM Resistant Gene Not Applicable Normal NOT DETECTED [facility] Comment on above: Performed By: #### B CID2 ####[facility] Gadgaejasi8[address] [place] [address]Dr. Farhat Leal Oxa-48-like Not Applicable Normal NOT DETECTED The [facility] Comment on above: Performed By: #### B CID2 ####[facility] Eoulclfylu[address] [place], [place] [address]Dr. Farhat Leal Proteus Not detected Normal NOT DETECTED The [facility] Comment on above: Performed By: #### B CID2 ####[facility] Yzznsfmzpt11[address] [place], [place] [address]Dr. Farhat Leal Pseud. aeruginosa Not detected Normal NOT DETECTED [facility] Comment on above: Performed By: #### B CID2 ####[facility] Awvxhdsmwb455[address] [place], [place] [address]Dr. Farhat Leal S. maltophilia Not detected Normal NOT DETECTED The [facility] Comment on above: Performed By: #### B CID2 ####[facility] Zqxonkfuqj247[address] [place], [place] [address]Dr. Farhat Leal Salmonella Not detected Normal NOT DETECTED The [facility] Comment on above: Performed By: #### B CID2 ####[facility] Ginlrrskar[address] [place], [place] [address]Dr. Farhat Leal Seratia marcescens Not detected Normal NOT DETECTED [facility] Comment on above: Performed By: #### B CID2 ####[facility] Ptfpowtelt282494 [address] [place], [place] [address]Dr. Farhat Leal Site: Rt Hand Normal The [facility] Comment on above: Performed By: #### B CID2 ####[facility] Ejaidfibba8499[address] [place], [place] [address]Dr. Farhat Leal Staph. aureus Detected Abnormal NOT DETECTED The [facility] Comment on above: Performed By: #### B CID2 ####[facility] Wstnfvmech[address] [place], [place] [id number]. Farhat Leal Staph. epidermidis Not detected Normal NOT DETECTED [facility] Comment on above: Performed By: #### B CID2 ####[facility] Dvpmjkuzvx4790[address] [place], [place] [address]Dr. Farhat Leal Staph. lugdunensis Not detected Normal NOT DETECTED [facility] Comment on above: Performed By: #### B CID2 ####[facility] Dboczckosq777[address] [place], [place] [address]Dr. Farhat Leal Staphylococcus Detected Abnormal NOT DETECTED The [facility] Comment on above: Performed By: #### B CID2 ####[facility] Jpvhkozdmi373[address] [place], [place] [address]Dr. Farhat Leal Strep. agalactiae Not detected Normal NOT DETECTED The [facility] Comment on above: Performed By: #### B CID2 ####[facility] Dpgjudfstl44[address] [place], [place] [address]Dr. Farhat Leal Strep. pneumoniae Not detected Normal NOT DETECTED The [facility] Comment on above: Performed By: #### B CID2 ####[facility] Zprpyxqjam6464[address] [place], [place] [address]Dr. Farhat Elvis Strep. pyogenes Not detected Normal NOT DETECTED The [facility] Comment on above: Performed By: #### B CID2 ####[facility] Nkrbtytmab639[address] [place], [place] [address]Dr. Farhat Leal Streptococcus Not detected Normal NOT DETECTED The [facility] Comment on above: Performed By: #### B CID2 ####[facility] Giwhsvghtt8437[address] [place], [place] [address]Dr. Farhat Leal Teodoro/B Resist. Gene Not Applicable Normal NOT DETECTED The [facility] Comment on above: Performed By: #### B CID2 ####[facility] Wczyaiplnv1975[address] [place], [place] [address]Dr. Farhat Leal VIM Resistant Gene Not Applicable Normal NOT DETECTED The [facility] Comment on above: Performed By: #### B CID2 ####[facility] [address] [place] [address]Dr. Farhat Leal BNPon 11-23-2021 Natriuretic peptide B (Bld) [Mass/Vol] 76076.0 pg/mL Critically high <=1,800.0 [facility] Comment on above: Performed By: #### C MP, CMADM, BNP ####[facility] Kh[address]ruzjez[address] [place] [address]Dr. Farhat Leal CARDIAC AMANDA ADMITon 022 CK [Catalytic activity/Vol] 41 U/L Normal 39-308 The [facility] Comment on above: Performed By: #### C MP, CMADM, BNP ####[facility] Gnlihnxvtp3628[address] [place], [place] [address]Dr. Farhat Leal CK.MB [Mass/Vol] 0.98 ng/mL Normal <=3.60 The [facility] Comment on above: Performed By: #### C MP, CMADM, BNP ####[facility] Ljkbysyvgs3264[address] [place], [place] [address]Dr. Farhat Leal HSTROP 30.1 pg/mL Normal 4.0-76.1 The [facility] Comment on above: Result Comment: CUT- OFF POINTS HAVE BEEN ESTABLISHED BASED ON THE FOURTH UNIVERSAL DEFINITIONS OF MYOCARDIALINFARCTION. THE UPPER REFERENCE LIMIT (URL) OF TROPONIN, DEFINED THE 99TH PERCENTILE OFcTnI DISTRIBUTION IN A REFERENCE POPULATION, HAS BEEN CONFIRMED THE DECISION THRESHOLDFOR CT DIAGNOSIS. Performed By: #### C MP, CMADM, BNP ####[facility] Hpbkerkbps2537[address] [place], [place] [address]Dr. Farhat Leal VALERIA 160 ng/mL Critically high 16-96 The [facility] Comment on above: Performed By: #### C MP, CMADM, BNP ####[facility] L[address]dsrlegr[address] [place] [address]Dr. Farhat Leal CBC AUTO DIFFon 11-23-2021 BASO # 0.0 103/ul Normal 0.0-0.1 [facility] Comment on above: Performed By: #### C BC ####[facility] Jjjfqsgkcv9[address] [place], [place] [address]Dr. Farhat Leal Basophils/100 WBC (Bld) 0.2 % Normal 0.2-2.0 The [facility] Comment on above: Performed By: #### C BC ####[facility] Ppemzveycs[address] [place], [place] [address]Dr. Farhat Leal EO # 0.0 103/ul Normal 0.0-0.7 The [facility] Comment on above: Performed By: #### C BC ####[facility] Infclhscbo099[address] [place], [place] [address]Dr. Farhat Leal Eosinophils/100 WBC (Bld) 0.1 % Critically low 0.9-7.0 The [facility] Comment on above: Performed By: #### C BC ####[facility] Puwprftzyp9917[address] [place], [place] [address]Dr. Farhat Leal Erythrocyte distribution width (RBC) [Ratio] 13.4 % Normal 11.0-15.0 The [facility] Comment on above: Performed By: #### C BC ####[facility] Xxjxadikdv654[address] [place], [place] [address]Dr. Farhat Leal Hematocrit (Bld) [Volume fraction] 31.6 % Critically low 42.0-54.0 [facility] Comment on above: Performed By: #### C BC ####[facility] Fsbhlmquuv124[address] [place], [place] [address]Dr. Farhat Leal Hemoglobin (Bld) [Mass/Vol] 10.4 g/dL Critically low 14.0-18.0 The [facility] Comment on above: Performed By: #### C BC ####[facility] Zcqrzptbbj25[address] [place], [place] [address]Dr. Farhat Leal IG # 0.11 10e3/ul Critically high 0.00-0.03 The [facility] Comment on above: Performed By: #### C BC ####[facility] Ldawlsdbpp[address] [place], [place] [address]Dr. Farhat Leal IG % 0.7 % Critically high 0.0-0.5 The [facility] Comment on above: Performed By: #### C BC ####[facility] Rxxnahvihh[address] [place], [place] [address]Dr. Farhat Leal LYMPH # 0.5 103/ul Critically low 1.2-3.8 The [facility] Comment on above: Performed By: #### C BC ####[facility] [address]igiyfp[address] [place] [address]Dr. Farhat Elvis Lymphocytes/100 WBC (Bld) 2.8 % Critically low 20.5-60.0 The [facility] Comment on above: Performed By: #### C BC ####[facility] [address]uk[address] [place] [address]Dr. Farhat Leal MANUAL DIFF REQ NO Normal The [facility] Comment on above: Performed By: #### C BC ####[facility] Reeopfvxgv[address] [place] [address]Dr. Farhat Elvis MCH (RBC) [Entitic mass] 29.8 pg Normal 25.9-34.0 The [facility] Comment on above: Performed By: #### C BC ####[facility] Klxvzjxync[address] [place] [address]Dr. Madelynlorri Leal MCHC (RBC) [Mass/Vol] 32.9 g/dL Normal 29.9-35.2 The [facility] Comment on above: Performed By: #### C BC ####[facility] [address]meeeggryo[address] [place] [address]Dr. Farhat Leal MCV (RBC) [Entitic vol] 90.5 fL Normal 80.0-94.0 The [facility] Comment on above: Performed By: #### C BC ####[facility] Po[address]thsryx[address] [place] [address]Dr. Farhat Leal MONO # 1.3 103/ul Critically high 0.3-0.8 The [facility] Comment on above: Performed By: #### C BC ####[facility] Rmzwyaavxj01[address] [place] [address]Dr. Farhat Leal Monocytes/100 WBC (Bld) 8.3 % Normal 1.7-12.0 The [facility] Comment on above: Performed By: #### C BC ####[facility] [address] [place] [address]Dr. Farhat Leal NEUT # 13.9 103/ul Critically high 1.4-6.5 The [facility] Comment on above: Performed By: #### C BC ####[facility] W[address]qfsi[address] [place] [id number]. Farhat Leal Neutrophils/100 WBC (Bld) 87.9 % Critically high 43.0-75.0 The [facility] Comment on above: Performed By: #### C BC ####[facility] Erdhqxazmb[address] [place] [address]Dr. Farhat Leal Platelet mean volume (Bld) [Entitic vol] 9.3 fL Critically low 9.5-13.5 The [facility] Comment on above: Performed By: #### C BC ####[facility] O[address]tzsw[address]qm[address] [place] [address]Dr. Farhat Leal PLT 390 103/ul Normal 150-450 The [facility] Comment on above: Performed By: #### C BC ####[facility] Tagbxhyhqa[address] [place], [place] [address]Dr. Farhat Leal RBC 3.49 106/ul Critically low 4.70-6.10 The [facility] Comment on above: Performed By: #### C BC ####[facility] Dtsjjqbmtx[address] [place] [address]Dr. Farhat Leal WBC 15.9 103/ul Critically high 4.0-11.0 The [facility] Comment on above: Performed By: #### C BC ####[facility] Njsycrolmb[address] [place] [address] Le[address] CT HEAD WO CONon 11-23-2021 CT HEAD WO CON Normal The [facility] CULTURE BLOODon 11-23-2021 Microscopic examination of blood, culture Culture Observations: NO GROWTH AT 5 DAYS. Normal The [facility] Comment on above: Performed By: #### B LDCX2 ####[facility] B[address]ytvjo[address] [place] [address]Dr. Farhat Leal Covid-19 PCR (CVDTB)on SARS-CoV-2 (COVID-19) RNA JOSH+probe Ql (Unsp spec) Not detected Normal NOT DETECTED The [facility] Comment on above: Result Comment: [...] for this test is supported by the Special Needs [place] of Health and Human Service's declaration that [...] be used). Performed By: #### C VDTBH ####[facility] Uwukwwnbsp[address] [place], [place] [address]Dr. Farhat Leal LACTATE/LACTIC ACIDon 2021 Lactate [Moles/Vol] 1.3 mmol/L Normal 0.4-1.9 [facility] Comment on above: Performed By: #### L ACT ####[facility] Lgtiflihry[address] [place], [place] [address]Dr. Farhat Leal Lactate [Moles/Vol] 1.3 mmol/L Normal 0.4-1.9 [facility] Comment on above: Performed By: #### L ACT ####[facility] Lrqvuwerwa35[address] [place], [place] [address]Dr. Farhat Leal POINT OF CARE GLUCOSEon Glucose [Mass/Vol] 252 mg/dL Critically high 74-106 [facility] Comment on above: Performed By: #### P OCGLUC ####[facility] [address]qfoqd[address] [place] [address]Dr. Farhat Leal PROF 14(COMP METB)on 022 Albumin [Mass/Vol] 1.6 g/dL Critically low 3.4-5.0 Th e [facility] Comment on above: Performed By: #### C MP, CMADM, BNP ####[facility] [address]pmfktp[address] [place] [address]Dr. Madelynlorri Elvis Albumin/Globulin [Mass ratio] 0.4 {ratio} Normal [facility] Comment on above: Performed By: #### C MP, CMADM, BNP ####[facility] Hbiwafzawr[address] [place], [place] [address]Dr. Farhat Elvis ALP [Catalytic activity/Vol] 98 U/L Normal 46-116 [facility] Comment on above: Performed By: #### C MP, CMADM, BNP ####[facility] Igogbnhwms194[address] [place], [place] [address]Dr. Farhat Leal ALT [Catalytic activity/Vol] 52 U/L Normal 16-63 [facility] Comment on above: Performed By: #### C MP, CMADM, BNP ####[facility] Athtdqkocw[address] [place], [place] [address]Dr. Farhat Leal Anion gap [Moles/Vol] 9.8 mmol/L Normal [facility] Comment on above: Performed By: #### C MP, CMADM, BNP ####[facility] Qwtvfoyaeg2564[address] [place], [place] [address]Dr. Farhat Leal AST [Catalytic activity/Vol] 122 U/L Critically high 15-37 [facility] Comment on above: Performed By: #### C MP, CMADM, BNP ####[facility] Zabtsmqlvf[address] [place], [place] [address]Dr. Farhat Leal Bilirubin [Mass/Vol] 0.7 mg/dL Normal 0.2-1.0 [facility] Comment on above: Performed By: #### C MP, CMADM, BNP ####[facility] Erzgwxegul69[address] [place], [place] [address]Dr. Farhat Leal Calcium [Mass/Vol] 8.6 mg/dL Normal 8.5-10.1 [facility] Comment on above: Performed By: #### C MP, CMADM, BNP ####[facility] Q[address]zshkeow[address] [place] [address]Dr. Farhat Leal Chloride [Moles/Vol] 95 mmol/L Critically low 98-107 The [facility] Comment on above: Performed By: #### C MP, CMADM, BNP ####[facility] Tiz[address]zgljz[address] [place] [address]Dr. Farhat Leal CO2 [Moles/Vol] 29.6 mmol/L Normal 21.0-32.0 The [facility] Comment on above: Performed By: #### C MP, CMADM, BNP ####[facility] S[address]rvlbhom[address] [place] [address]Dr. Farhat Leal Creatinine [Mass/Vol] 1.49 mg/dL Critically high 0.70-1.30 [facility] Comment on above: Performed By: #### C MP, CMADM, BNP ####[facility] Qjihzxfaxo[address] [place], [place] [address]Dr. Farhat Elvis EGFR-AF [place] 55 mL/min/1.73m2 Critically low >=60 [facility] Comment on above: Performed By: #### C MP, CMADM, BNP ####[facility] Krauhvcyqa[address] [place] [address]Dr. Farhat Leal EGFR-NON AF [place] 46 mL/min/1.73m2 Critically low >=60 [facility] Comment on above: Performed By: #### C MP, CMADM, BNP ####[facility] Kk[address]evwsz[address] [place] [address]Dr. Farhat Leal Globulin (S) [Mass/Vol] 4.3 g/dL Normal [facility] Comment on above: Performed By: #### C MP, CMADM, BNP ####[facility] C[address]upzxnx[address] [place] [address]Dr. Farhat Leal Glucose [Mass/Vol] 213 mg/dL Critically high 74-106 [facility] Comment on above: Performed By: #### C MP, CMADM, BNP ####[facility] Ambhqvhsmx4[address] [place] [address]Dr. Farhat Leal Potassium [Moles/Vol] 4.4 mmol/L Normal 3.5-5.1 [facility] Comment on above: Performed By: #### C FATMATA MARROQUINDM, BNP ####[facility] Nsuztxwjau[address] [place] [address]Dr. Farhat Leal Protein [Mass/Vol] 5.9 g/dL Critically low 6.4-8.2 Th [facility] Comment on above: Performed By: #### C CARA CMADM, BNP ####[facility] Bpsxkabnix[address] [place], [place] [address]Dr. Farhat Leal Sodium [Moles/Vol] 130 mmol/L Critically low 136-145 Th [facility] Comment on above: Performed By: #### C FATMATA MARROQUINDM, BNP ####[facility] Ugajgnhzuk[address] [place], [place] [address]Dr. Farhat Leal Urea nitrogen [Mass/Vol] 46.0 mg/dL Critically high 7.0-18.0 [facility] Comment on above: Performed By: #### C ANTWAN MARROQUIN, BNP ####[facility] Qdhnnpnecm[address] [place], [place] [address]Dr. Farhat Leal Urea nitrogen/Creatinine [Mass ratio] 30.9 mg/mg Normal [facility] Comment on above: Performed By: #### C ANTWAN MARROQUIN, BNP ####[facility] Ljitwesqcv[address] [place], [place] [address]Dr. Farhat Leal PROTIMEon 11-23-2021 INR Coag (PPP) [Relative time] 2.55 {INR} Normal [facility] Comment on above: Performed By: #### P TT, PT ####[facility] Dwvghlygyu[address] [place], [place] [address]Dr. Farhat Leal INR GUIDELINES SEE BELOW Normal [facility] Comment on above: Result Comment: MALINA RED INR: 2.0 - 3.0 CONDITIONS NOT LISTED BELOW 2.5 - 3.5 FOR PROSTHETIC HEART VALVE REPLACEMENT 2.5 - 3.5 RECURRENT THROMBOSIS Performed By: #### P TT, PT ####[facility] Wyxcfnrgqe9[address] [place], [place] [address]Dr. Farhat Leal PT Coag (PPP) [Time] 25.9 s Critically high 9.0-11.6 The [facility] Comment on above: Performed By: #### P TT, PT ####[facility] [address]sv[address] [place] [id number]. Farhat Leal PTTon 11-23-2021 aPTT Coag (Bld) [Time] 39.9 s Critically high 22.3-36. 2 The [facility] Comment on above: Performed By: #### P TT, PT ####[facility] Boeqfaxudn[address] [place], [place] [address]Dr. Farhat Leal XR CHEST 1 Von 11-23-2021 XR CHEST 1 V Normal The [facility] XR HEEL RT 2Von 11-23-2021 XR HEEL RT 2V Normal The [facility] XR FOOT RT MIN 3 VIEWSon XR FOOT RT MIN [address] [facility] US ARTERY LEG RTon US ARTERY LEG RT Normal The [facility] CBC AUTO DIFFon 09-24-2021 BASO # 0.1 103/ul Normal 0.0-0.1 The [facility] Comment on above: Performed By: #### C BC ####[facility] Qifujyfdqm[address] [place], [place] [address]Dr. Farhat Elvis Basophils/100 WBC (Bld) 0.7 % Normal 0.2-2.0 The [facility] Comment on above: Performed By: #### C BC ####[facility] Obfwscovvj[address] [place], [place] [address]Dr. Farhat Elvis EO # 0.3 103/ul Normal 0.0-0.7 The [facility] Comment on above: Performed By: #### C BC ####[facility] Smzwhdpird[address] [place], [place] [address]Dr. Farhat Elvis Eosinophils/100 WBC (Bld) 3.9 % Normal 0.9-7.0 The [facility] Comment on above: Performed By: #### C BC ####[facility] Uacvrtbizv[address] [place], [place] [address]Dr. Farhat Elvis Erythrocyte distribution width (RBC) [Ratio] 12.6 % Normal 11.0-15.0 [facility] Comment on above: Performed By: #### C BC ####[facility] Wrjauewwwx50[address] [place] [address]DrSkylar Leal Hematocrit (Bld) [Volume fraction] 38.9 % Critically low 42.0-54.0 [facility] Comment on above: Performed By: #### C BC ####[facility] Mfzrlzmztp[address] [place], [place] [address]DrSkylar Leal Hemoglobin (Bld) [Mass/Vol] 12.8 g/dL Critically low 14.0-18.0 [facility] Comment on above: Performed By: #### C BC ####[facility] Geongfnqfs[address] [place], [place] [address]DrSkylar Leal IG # 0.10 10e3/ul Critically high 0.00-0.03 [facility] Comment on above: Performed By: #### C BC ####[facility] Arhmsftuvs228[address] [place], [place] [address]DrSkylar Leal IG % 1.2 % Critically high 0.0-0.5 [facility] Comment on above: Performed By: #### C BC ####[facility] Jjrwvjzowk[address] [place], [place] [address]DrSkylar Leal LYMPH # 2.1 103/ul Normal 1.2-3.8 The [facility] Comment on above: Performed By: #### C BC ####[facility] Utzpwtukfz[address] [place], [place] [address]DrSkylar Leal Lymphocytes/100 WBC (Bld) 25.9 % Normal 20.5-60.0 [facility] Comment on above: Performed By: #### C BC ####[facility] Zkcvvvgtru[address] [place], [place] [address]DrSkylar Leal MANUAL DIFF REQ NO Normal [facility] Comment on above: Performed By: #### C BC ####[facility] Ybnxbgwcmb29[address] [place], [place] [address]DrSkylar Leal MCH (RBC) [Entitic mass] 31.1 pg Normal 25.9-34.0 [facility] Comment on above: Performed By: #### C BC ####[facility] Tzelkammyv87[address] [place] [address]DrSkylar Leal MCHC (RBC) [Mass/Vol] 32.9 g/dL Normal 29.9-35.2 The [facility] Comment on above: Performed By: #### C BC ####[facility] Fmrcguqcte1582 [place] [address]DrSkylar Leal MCV (RBC) [Entitic vol] 94.6 fL Critically high 80.0-94.0 The [facility] Comment on above: Performed By: #### C BC ####[facility] Nhcycowygn[address] [place], [place] [address]DrSkylar Leal MONO # 1.2 103/ul Critically high 0.3-0.8 [facility] Comment on above: Performed By: #### C BC ####[facility] Rbjaxpoiux[address] [place], [place] [address]DrSkylar Leal Monocytes/100 WBC (Bld) 14.1 % Critically high 1.7-12.0 [facility] Comment on above: Performed By: #### C BC ####[facility] Uexfmignjr03[address] [place], [place] [address]DrSkylar Leal NEUT # 4.4 103/ul Normal 1.4-6.5 The [facility] Comment on above: Performed By: #### C BC ####[facility] Dxkdzmmzem[address] [place], [place] [address]DrSkylar Leal Neutrophils/100 WBC (Bld) 54.2 % Normal 43.0-75.0 The [facility] Comment on above: Performed By: #### C BC ####[facility] Xfmzpywdjg86[address] [place], [place] [address]DrSkylar Leal Platelet mean volume (Bld) [Entitic vol] 9.9 fL Normal 9.5-13.5 The [facility] Comment on above: Performed By: #### C BC ####[facility] Xahjzytyav[address] [place], [place] [address]Dr. Farhat Leal PLT 224 103/ul Normal 150-450 The [facility] Comment on above: Performed By: #### C BC ####[facility] [address]frxzh[address] [place] [address]Dr. Farhat Leal RBC 4.11 106/ul Critically low 4.70-6.10 [facility] Comment on above: Performed By: #### C BC ####[facility] Rpiwkzdeyl40[address] [place] [address]Dr. Farhat Leal WBC 8.2 103/ul Normal 4.0-11.0 The [facility] Comment on above: Performed By: #### C BC ####[facility] [facility] Bksguivk[address] [place], [place] [address]DrSkylar Leal PROF CHEM 8 (BAS METB)on Anion gap [Moles/Vol] 9.6 mmol/L Normal [facility] [place] Comment on above: Performed By: #### B MP ####[facility] Wgoxmxlnqj02[address] [place], [place] [address]Dr. Farhat Leal Calcium [Mass/Vol] 8.6 mg/dL Normal 8.5-10.1 [facility] Comment on above: Performed By: #### B MP ####[facility] Dalcimtmvp2935[address] [place], [place] [address]Dr. Farhat Leal Chloride [Moles/Vol] 94 mmol/L Critically low 98-107 [facility] Comment on above: Performed By: #### B MP ####[facility] Kxfshivvaq0810[address] [place], [place] [address]DrSkylar Leal CO2 [Moles/Vol] 28.1 mmol/L Normal 21.0-32.0 [facility] Comment on above: Performed By: #### B MP ####[facility] Rrhvyzvemt[address] [place], [place] [address]Dr. Farhat Leal Creatinine [Mass/Vol] 1.91 mg/dL Critically high 0.70-1.30 [facility] Comment on above: Performed By: #### B MP ####[facility] Csaukbyhzk1720[address] [place], [place] [address]Dr. Madelynlorri Leal EGFR-AF [place] 42 mL/min/1.73m2 Critically low >=60 [facility] [place] Comment on above: Performed By: #### B MP ####[facility] [address]ops[address] [place] [address]Dr. Farhat Leal EGFR-NON AF [place] 34 mL/min/1.73m2 Critically low >=60 [facility] [place] Comment on above: Performed By: #### B MP ####[facility] Lnfzfagfqz66[address] [place], [place] [address]Dr. Madelynlorri Elvis Glucose [Mass/Vol] 314 mg/dL Critically high 74-106 T [facility] Comment on above: Performed By: #### B MP ####[facility] Rllvyivglp427[address] [place], [place] [address]Dr. Farhat Leal Potassium [Moles/Vol] 4.7 mmol/L Normal 3.5-5.1 [facility] [place] Comment on above: Performed By: #### B MP ####[facility] Gorfkztvjc3075[address] [place], [place] [address]Dr. Farhat Leal Sodium [Moles/Vol] 127 mmol/L Critically low 136-145 [facility] Comment on above: Performed By: #### B MP ####[facility] Jaycdzlbhs[address] [place], [place] [address]Dr. Madelynlorri Elvis Urea nitrogen [Mass/Vol] 79.0 mg/dL Critically high 7.0-18.0 [facility] [place] Comment on above: Result Comment: repe ated Performed By: #### B MP ####[facility] Dogjpgdndw897594 [address] [place], [place] [address]Dr. Farhat Leal Urea nitrogen/Creatinine [Mass ratio] 41.4 mg/mg Normal [facility] [place] Comment on above: Performed By: #### B MP ####[facility] Oojiljjiip[address] [place], [place] [address]Dr. Farhat Leal PTT HEPARIN MONITORon 2021 aPTT Coag (Bld) [Time] 42.7 s Normal 39.5-54.2 [facility] Comment on above: Performed By: #### P TTHEP ####[facility] [address] [place] [id number]. Farhat Leal aPTT Coag (Bld) [Time] 56.7 s Critically high 39.5-54. 2 [facility] [place] Comment on above: Performed By: #### P TTHEP ####[facility] Lzawegerce[address] [place] [address]Dr. Farhat Elvis CBC AUTO DIFFon 09-23-2021 BASO # 0.1 103/ul Normal 0.0-0.1 [facility] [place] Comment on above: Performed By: #### C BC ####[facility] Agvicbqbvd317[address] [place], [place] [address]Dr. Farhat Leal Basophils/100 WBC (Bld) 0.6 % Normal 0.2-2.0 [facility] [place] Comment on above: Performed By: #### C BC ####[facility] Hzaufwhtfk613[address] [place], [place] [address]Dr. Farhat Leal EO # 0.2 103/ul Normal 0.0-0.7 [facility] [place] Comment on above: Performed By: #### C BC ####[facility] Uzowbrkqbm[address] [place], [place] [address]Dr. Madelynlorri Leal Eosinophils/100 WBC (Bld) 2.6 % Normal 0.9-7.0 [facility] [place] Comment on above: Performed By: #### C BC ####[facility] Xszlzpktte57[address] [place], [place] [address]Dr. Farhat Leal Erythrocyte distribution width (RBC) [Ratio] 12.4 % Normal 11.0-15.0 [facility] Comment on above: Performed By: #### C BC ####[facility] Pyuotzazib10[address] [place], [place] [address]Dr. Farhat Leal Hematocrit (Bld) [Volume fraction] 38.4 % Critically low 42.0-54.0 [facility] [place] Comment on above: Performed By: #### C BC ####[facility] Rhowzvstrh677[address] [place], [place] [address]Dr. Farhat Leal Hemoglobin (Bld) [Mass/Vol] 12.8 g/dL Critically low 14.0-18.0 [facility] [place] Comment on above: Performed By: #### C BC ####[facility] E[address]sunfei[address] [place] [address]Dr. Farhat Leal IG # 0.06 10e3/ul Critically high 0.00-0.03 [facility] Comment on above: Performed By: #### C BC ####[facility] Dmoirxmuif[address] [place] [address]Dr. Farhat Leal IG % 0.8 % Critically high 0.0-0.5 [facility] Comment on above: Performed By: #### C BC ####[facility] Dndzertgnx[address] [place] [address]Dr. Farhat Leal LYMPH # 1.5 103/ul Normal 1.2-3.8 [facility] [place] Comment on above: Performed By: #### C BC ####[facility] Khwutilfuk[address] [place] [address]Dr. Farhat Leal Lymphocytes/100 WBC (Bld) 19.7 % Critically low 20.5-60.0 [facility] [place] Comment on above: Performed By: #### C BC ####[facility] Lpogottlfg[address] [place] [address]Dr. Farhat Leal MANUAL DIFF REQ NO Normal [facility] Comment on above: Performed By: #### C BC ####[facility] Jzymbkbiwx0[address] [place] [address]DrSkylar Leal MCH (RBC) [Entitic mass] 31.6 pg Normal 25.9-34.0 [facility] [place] Comment on above: Performed By: #### C BC ####[facility] Cmdeawvjko[address] [place] [address]DrSkylar Leal MCHC (RBC) [Mass/Vol] 33.3 g/dL Normal 29.9-35.2 [facility] Comment on above: Performed By: #### C BC ####[facility] Bsqpnaducv34[address] [place] [address]DrSkylar Leal MCV (RBC) [Entitic vol] 94.8 fL Critically high 80.0-94.0 [facility] Comment on above: Performed By: #### C BC ####[facility] Hgfggahigs[address] [place] [address]DrSkylar Johsilorri Elvis MONO # 1.0 103/ul Critically high 0.3-0.8 [facility] Comment on above: Performed By: #### C BC ####[facility] Hpifqpmjbv8[address] [place] [address]DrSkylar Leal Monocytes/100 WBC (Bld) 13.0 % Critically high 1.7-12.0 [facility] Comment on above: Performed By: #### C BC ####[facility] Xdelmzjmvr[address] [place], [place] [address]DrSkylar Joshilorri Elvis NEUT # 4.9 103/ul Normal 1.4-6.5 [facility] Comment on above: Performed By: #### C BC ####[facility] Docstymjlh357[address] [place], [place] [address]DrSkylar Leal Neutrophils/100 WBC (Bld) 63.3 % Normal 43.0-75.0 [facility] Comment on above: Performed By: #### C BC ####[facility] Bpbbqzzemp3[address] [place], [place] [address]DrSkylar Leal Platelet mean volume (Bld) [Entitic vol] 10.7 fL Normal 9.5-13.5 [facility] Comment on above: Performed By: #### C BC ####[facility] Ajdtfynfmd[address] [place] [address]Dr. Farhat Leal PLT 205 103/ul Normal 150-450 [facility] Comment on above: Performed By: #### C BC ####[facility] Kqxqvvruxb13[address] [place] [id number] Leal RBC 4.05 106/ul Critically low 4.70-6.10 [facility] Comment on above: Performed By: #### C BC ####[facility] Usshrtqkjt1220 [place] [id number] Leal WBC 7.7 103/ul Normal 4.0-11.0 [facility] Comment on above: Performed By: #### C BC ####[facility] Jrceznmnfk24[address] [place] [address]Dr. Farhat Leal PROF CHEM 8 (BAS METB)on Anion gap [Moles/Vol] 15.5 mmol/L Normal [facility] Comment on above: Performed By: #### B MP ####[facility] Uhssouvrlh[address] [place], [place] [address]Dr. Farhat Leal Calcium [Mass/Vol] 9.1 mg/dL Normal 8.5-10.1 [facility] Comment on above: Performed By: #### B MP ####[facility] Jervbehrct[address] [place], [place] [address]Dr. Farhat Leal Chloride [Moles/Vol] 92 mmol/L Critically low 98-107 [facility] [place] Comment on above: Performed By: #### B MP ####[facility] Dcvjkvoylw[address] [place], [place] [address]Dr. Farhat Leal CO2 [Moles/Vol] 28.5 mmol/L Normal 21.0-32.0 [facility] Comment on above: Performed By: #### B MP ####[facility] Jivuinkoin[address] [place], [place] [address]DrSkylar Leal Creatinine [Mass/Vol] 1.84 mg/dL Critically high 0.70-1.30 [facility] [place] Comment on above: Performed By: #### B MP ####[facility] Nyrsoekmqy34[address] [place], [place] [address]DrSkylar Leal EGFR-AF [place] 44 mL/min/1.73m2 Critically low >=60 [facility] Comment on above: Performed By: #### B MP ####[facility] Htxtkeijcs174[address] [place], [place] [address]Dr. Farhat Leal EGFR-NON AF [place] 36 mL/min/1.73m2 Critically low >=60 [facility] Comment on above: Performed By: #### B MP ####[facility] Ldkjfhykba04[address] [place], [place] [address]DrSkylar Leal Glucose [Mass/Vol] 267 mg/dL Critically high 74-106 T [facility] Comment on above: Performed By: #### B MP ####[facility] Hwvueiyxon6464[address] [place], [place] [address]Dr. Farhat Leal Potassium [Moles/Vol] 5.0 mmol/L Normal 3.5-5.1 [facility] [place] Comment on above: Performed By: #### B MP ####[facility] Sblvrqospr1635[address] [place], [place] [address]Dr. Madelynlorri Elvis Sodium [Moles/Vol] 131 mmol/L Critically low 136-145 Th [facility] Comment on above: Performed By: #### B MP ####[facility] Xsigmojyzr3550[address] [place], [place] [address]Dr. Farhat Elvis Urea nitrogen [Mass/Vol] 76.0 mg/dL Critically high 7.0-18.0 [facility] [place] Comment on above: Performed By: #### B MP ####[facility] Wtxnlswmwa304[address] [place], [place] [address]Dr. Madelynlorri Elvis Urea nitrogen/Creatinine [Mass ratio] 41.3 mg/mg Normal [facility] [place] Comment on above: Performed By: #### B MP ####[facility] Khncwyuikz[address] [place], [place] [address]Dr. Farhat Elvis PTT HEPARIN MONITORon 2021 aPTT Coag (Bld) [Time] 57.2 s Critically high 39.5-54. 2 [facility] [place] Comment on above: Performed By: #### P TTHEP ####[facility] Ewkeiaodqx[address] [place], [place] [address]Dr. Madelynlorri Elvis aPTT Coag (Bld) [Time] 74.7 s Critically high 39.5-54. 2 [facility] [place] Comment on above: Result Comment: repe ated Performed By: #### P TTHEP ####[facility] Hahmytnikn6418[address] [place], [place] [address]Dr. Farhat Leal aPTT Coag (Bld) [Time] 45.5 s Normal 39.5-54.2 [facility] Comment on above: Performed By: #### P TTHEP ####[facility] O[address]rnuolcn[address] [place] [address]Dr. Farhat Elvis CBC AUTO DIFFon 09-22-2021 BASO # 0.1 103/ul Normal 0.0-0.1 [facility] [place] Comment on above: Performed By: #### C BC ####[facility] Sxfptyzbys[address] [place], [place] [address]Dr. Farhat Leal Basophils/100 WBC (Bld) 0.7 % Normal 0.2-2.0 [facility] [place] Comment on above: Performed By: #### C BC ####[facility] Grxchtafmo[address] [place], [place] [address]Dr. Farhat Leal EO # 0.3 103/ul Normal 0.0-0.7 [facility] Comment on above: Performed By: #### C BC ####[facility] Icdopylyxu6585[address] [place], [place] [address]Dr. Farhat Leal Eosinophils/100 WBC (Bld) 3.2 % Normal 0.9-7.0 [facility] [place] Comment on above: Performed By: #### C BC ####[facility] Giacegejyi[address] [place], [place] [address]Dr. Farhat Leal Erythrocyte distribution width (RBC) [Ratio] 12.5 % Normal 11.0-15.0 [facility] [place] Comment on above: Performed By: #### C BC ####[facility] Yyoscdwkbf694[address] [place], [place] [address]Dr. Farhat Leal Hematocrit (Bld) [Volume fraction] 40.5 % Critically low 42.0-54.0 [facility] [place] Comment on above: Performed By: #### C BC ####[facility] Pvgxxaadcz8[address] [place], [place] [address]Dr. Farhat Leal Hemoglobin (Bld) [Mass/Vol] 13.4 g/dL Critically low 14.0-18.0 [facility] [place] Comment on above: Performed By: #### C BC ####[facility] Vpzacsnqah[address] [place], [place] [address]Dr. Farhat Leal IG # 0.11 10e3/ul Critically high 0.00-0.03 [facility] Comment on above: Performed By: #### C BC ####[facility] Pgcdsmliyz7538 [place] [id number]. Farhat Elvis IG % 1.3 % Critically high 0.0-0.5 [facility] Comment on above: Performed By: #### C BC ####[facility] Pqfanzdslk[address] [place] [address]Dr. Farhat Leal LYMPH # 1.7 103/ul Normal 1.2-3.8 [facility] Comment on above: Performed By: #### C BC ####[facility] Cglkuzgaye40[address] [place] [address]Dr. Farhat Leal Lymphocytes/100 WBC (Bld) 19.6 % Critically low 20.5-60.0 [facility] [place] Comment on above: Performed By: #### C BC ####[facility] Johmdquhzm[address] [place], [place] [address]Dr. Farhat Leal MANUAL DIFF REQ NO Normal [facility] Comment on above: Performed By: #### C BC ####[facility] Xnrytrazir25[address] [place] [address]Dr. Farhat Elvis MCH (RBC) [Entitic mass] 31.1 pg Normal 25.9-34.0 [facility] [place] Comment on above: Performed By: #### C BC ####[facility] Dbhboigrcp12[address] [place] [address]Dr. Farhat Leal MCHC (RBC) [Mass/Vol] 33.1 g/dL Normal 29.9-35.2 [facility] Comment on above: Performed By: #### C BC ####[facility] Qsynspnlzy[address] [place], [place] [address]DrSkylar Leal MCV (RBC) [Entitic vol] 94.0 fL Normal 80.0-94.0 [facility] [place] Comment on above: Performed By: #### C BC ####[facility] Doqxxysrnr[address] [place], [place] [address]DrSkylar Leal MONO # 1.1 103/ul Critically high 0.3-0.8 [facility] Comment on above: Performed By: #### C BC ####[facility] Pmhjqwjraw2514 [place] [address]DrSkylar Farhat Leal Monocytes/100 WBC (Bld) 12.7 % Critically high 1.7-12.0 [facility] [place] Comment on above: Performed By: #### C BC ####[facility] Rpqvdcojoy1469 [place] [address]DrSkylar Farhat Leal NEUT # 5.3 103/ul Normal 1.4-6.5 [facility] [place] Comment on above: Performed By: #### C BC ####[facility] Bgurckcxil23[address] [place] [address]DrSkylar Farhat Leal Neutrophils/100 WBC (Bld) 62.5 % Normal 43.0-75.0 [facility] Comment on above: Performed By: #### C BC ####[facility] Zocskpghci4[address] [place] [address]DrSkylar Farhat Leal Platelet mean volume (Bld) [Entitic vol] 10.1 fL Normal 9.5-13.5 [facility] Comment on above: Performed By: #### C BC ####[facility] Ccjwnynrma[address] [place] [address]Dr. Farhat Leal PLT 220 103/ul Normal 150-450 [facility] Comment on above: Performed By: #### C BC ####[facility] Cwnnxoidda0355 [place] [address]DrSkylar Farhat Leal RBC 4.31 106/ul Critically low 4.70-6.10 [facility] Comment on above: Performed By: #### C BC ####[facility] Surleduqmp5464 [place] [id number] Farhat Elvis WBC 8.4 103/ul Normal 4.0-11.0 [facility] Comment on above: Performed By: #### C BC ####[facility] Flzikknfwt7[address] [place] [address]DrSkylar Leal PROF CHEM 8 (BAS METB)on Anion gap [Moles/Vol] 15.5 mmol/L Normal [facility] Comment on above: Performed By: #### B MP ####[facility] Njgmbkstks[address] [place], [place] [address]Dr. Farhat Leal Calcium [Mass/Vol] 8.9 mg/dL Normal 8.5-10.1 [facility] Comment on above: Performed By: #### B MP ####[facility] Ctazgqrejd0332[address] [place], [place] [address]Dr. Farhat Leal Chloride [Moles/Vol] 92 mmol/L Critically low 98-107 [facility] [place] Comment on above: Performed By: #### B MP ####[facility] Tzlgldofav87[address] [place], [place] [address]Dr. Farhat Leal CO2 [Moles/Vol] 25.7 mmol/L Normal 21.0-32.0 [facility] Comment on above: Performed By: #### B MP ####[facility] Bwqpohtsex44[address] [place], [place] [address]Dr. Farhat Leal Creatinine [Mass/Vol] 1.85 mg/dL Critically high 0.70-1.30 [facility] [place] Comment on above: Performed By: #### B MP ####[facility] Xinefdjrvi[address] [place], [place] [address]Dr. Farhat Leal EGFR-AF [place] 43 mL/min/1.73m2 Critically low >=60 [facility] [place] Comment on above: Performed By: #### B MP ####[facility] Ehhqtziumb4414[address] [place], [place] [address]Dr. Farhat Leal EGFR-NON AF [place] 36 mL/min/1.73m2 Critically low >=60 [facility] [place] Comment on above: Performed By: #### B MP ####[facility] Qoisydphax07[address] [place], [place] [address]Dr. Farhat Leal Glucose [Mass/Vol] 410 mg/dL Critically high 74-106 T [facility] Comment on above: Performed By: #### B MP ####[facility] Orifislxnc1820[address] [place], [place] [address]Dr. Farhat Leal Potassium [Moles/Vol] 5.2 mmol/L Critically high 3.5-5.1 [facility] [place] Comment on above: Performed By: #### B MP ####[facility] Skmppdazel0417[address] [place], [place] [address]Dr. Farhat Leal Sodium [Moles/Vol] 128 mmol/L Critically low 136-145 [facility] Comment on above: Performed By: #### B MP ####[facility] Mutezaojjt[address] [place], [place] [address]Dr. Farhat Leal Urea nitrogen [Mass/Vol] 75.0 mg/dL Critically high 7.0-18.0 [facility] [place] Comment on above: Performed By: #### B MP ####[facility] Psgwvmuwwt85[address] [place], [place] [address]Dr. Farhat Leal Urea nitrogen/Creatinine [Mass ratio] 40.5 mg/mg Normal [facility] [place] Comment on above: Performed By: #### B MP ####[facility] Nughlxlesd[address] [place], [place] [address]Dr. Farhat Leal PTT HEPARIN MONITORon 2021 aPTT Coag (Bld) [Time] 51.2 s Normal 39.5-54.2 [facility] Comment on above: Performed By: #### P TTHEP ####[facility] Dlfxelsdun[address] [place], [place] [address]Dr. Farhat Leal aPTT Coag (Bld) [Time] 55.6 s Critically high 39.5-54. 2 [facility] [place] Comment on above: Performed By: #### P TTHEP ####[facility] Yxosrfgepq7740[address] [place], [place] [address]Dr. Farhat Leal aPTT Coag (Bld) [Time] 46.1 s Normal 39.5-54.2 [facility] Comment on above: Performed By: #### P TTHEP ####[facility] Ldefcpcluw[address] [place], [place] [address]Dr. Farhat Leal aPTT Coag (Bld) [Time] 53.8 s Normal 39.5-54.2 [facility] Comment on above: Performed By: #### P TTHEP ####[facility] Zavbnxkkhn[address] [place] [address]Dr. Farhat Leal CBC AUTO DIFFon 09-21-2021 BASO # 0.1 103/ul Normal 0.0-0.1 [facility] [place] Comment on above: Performed By: #### C BC ####[facility] Azsbkvmtuj[address] [place], [place] [address]Dr. Farhat Leal Basophils/100 WBC (Bld) 0.8 % Normal 0.2-2.0 [facility] [place] Comment on above: Performed By: #### C BC ####[facility] Dsppsrrzqw[address] [place], [place] [address]Dr. Farhat Leal EO # 0.4 103/ul Normal 0.0-0.7 [facility] [place] Comment on above: Performed By: #### C BC ####[facility] Gzdsywpaok[address] [place], [place] [address]Dr. Farhat Leal Eosinophils/100 WBC (Bld) 4.3 % Normal 0.9-7.0 [facility] [place] Comment on above: Performed By: #### C BC ####[facility] Nigbfpkwys[address]20[address] [place], [place] [address]Dr. Farhat Leal Erythrocyte distribution width (RBC) [Ratio] 12.5 % Normal 11.0-15.0 [facility] [place] Comment on above: Performed By: #### C BC ####[facility] Nlhmoucuam[address] [place], [place] [address]Dr. Farhat Leal Hematocrit (Bld) [Volume fraction] 40.8 % Critically low 42.0-54.0 [facility] [place] Comment on above: Performed By: #### C BC ####[facility] Zttptwkxul8[address] [place], [place] [address]Dr. Farhat Leal Hemoglobin (Bld) [Mass/Vol] 13.5 g/dL Critically low 14.0-18.0 [facility] Comment on above: Performed By: #### C BC ####[facility] Rholciskrh[address] [place], [place] [address]Dr. Farhat Leal IG # 0.10 10e3/ul Critically high 0.00-0.03 [facility] Comment on above: Performed By: #### C BC ####[facility] Imcaxahlvo99[address] [place] [address]DrSkylar Farhat Elvis IG % 1.2 % Critically high 0.0-0.5 [facility] Comment on above: Performed By: #### C BC ####[facility] Murqtizmjs[address] [place] [address]DrSkylar Joshilorri Elvis LYMPH # 1.3 103/ul Normal 1.2-3.8 [facility] Comment on above: Performed By: #### C BC ####[facility] Mrlstyqzzk7[address] [place], [place] [address]DrSkylar Leal Lymphocytes/100 WBC (Bld) 15.4 % Critically low 20.5-60.0 [facility] [place] Comment on above: Performed By: #### C BC ####[facility] Sziywumjqd[address] [place], [place] [address]DrSkylar Leal MANUAL DIFF REQ NO Normal [facility] Comment on above: Performed By: #### C BC ####[facility] Nwhirkbwwu248[address] [place], [place] [address]DrSkylar Joshilorri Elvis MCH (RBC) [Entitic mass] 31.0 pg Normal 25.9-34.0 [facility] [place] Comment on above: Performed By: #### C BC ####[facility] [address]ex[address] [place] [address]DrSkylar Joshilorri Elvis MCHC (RBC) [Mass/Vol] 33.1 g/dL Normal 29.9-35.2 [facility] Comment on above: Performed By: #### C BC ####[facility] Rfpsjownqo912[address] [place], [place] [address]DrSkylar Leal MCV (RBC) [Entitic vol] 93.8 fL Normal 80.0-94.0 [facility] [place] Comment on above: Performed By: #### C BC ####[facility] Zdfubblcrn368[address] [place], [place] [address]DrSkylar Leal MONO # 1.2 103/ul Critically high 0.3-0.8 [facility] Comment on above: Performed By: #### C BC ####[facility] Vdclkrvpcm[address] [place] [address]Dr. Farhat Leal Monocytes/100 WBC (Bld) 13.6 % Critically high 1.7-12.0 [facility] Comment on above: Performed By: #### C BC ####[facility] Dejsosenoy803[address] [place], [place] [address]Dr. Farhat Leal NEUT # 5.5 103/ul Normal 1.4-6.5 [facility] Comment on above: Performed By: #### C BC ####[facility] Qewmqjrzqj[address] [place] [address]Dr. Farhat Leal Neutrophils/100 WBC (Bld) 64.7 % Normal 43.0-75.0 [facility] Comment on above: Performed By: #### C BC ####[facility] Mlatlwgavx048[address] [place], [place] [address]Dr. Farhat Leal Platelet mean volume (Bld) [Entitic vol] 9.8 fL Normal 9.5-13.5 [facility] Comment on above: Performed By: #### C BC ####[facility] Jtfekybyyj844[address] [place], [place] [address]Dr. Farhat Leal PLT 206 103/ul Normal 150-450 [facility] Comment on above: Performed By: #### C BC ####[facility] Gkgaprlhfj2316[address] [place], [place] [address]Dr. Farhat Leal RBC 4.35 106/ul Critically low 4.70-6.10 [facility] Comment on above: Performed By: #### C BC ####[facility] Kidmulepal7[address] [place], [place] [id number]. Farhat Leal WBC 8.4 103/ul Normal 4.0-11.0 [facility] Comment on above: Performed By: #### C BC ####[facility] Udrroirpez294094 [address] [place], [place] [address]DrSkylar Farhat Elvis PROF CHEM 8 (BAS METB)on Anion gap [Moles/Vol] 12.3 mmol/L Normal [facility] Comment on above: Performed By: #### B MP ####[facility] Ffjwrsyitv6624[address] [place], [place] [address]Dr. Farhat Leal Calcium [Mass/Vol] 8.6 mg/dL Normal 8.5-10.1 [facility] Comment on above: Performed By: #### B MP ####[facility] Ftzzukxnos694[address] [place], [place] [address]Dr. Farhat Leal Chloride [Moles/Vol] 94 mmol/L Critically low 98-107 [facility] [place] Comment on above: Performed By: #### B MP ####[facility] Abjhyitcep217[address] [place], [place] [address]Dr. Farhat Leal CO2 [Moles/Vol] 30.8 mmol/L Normal 21.0-32.0 [facility] Comment on above: Performed By: #### B MP ####[facility] Lcvpbrmpzk244794 [address] [place], [place] [address]Dr. Farhat Leal Creatinine [Mass/Vol] 1.99 mg/dL Critically high 0.70-1.30 [facility] [place] Comment on above: Performed By: #### B MP ####[facility] Ecyxilmama613[address] [place], [place] [address]Dr. Farhat Leal EGFR-AF [place] 40 mL/min/1.73m2 Critically low >=60 [facility] [place] Comment on above: Performed By: #### B MP ####[facility] Lwmlnpuedu707[address] [place], [place] [address]Dr. Farhat Leal EGFR-NON AF [place] 33 mL/min/1.73m2 Critically low >=60 [facility] [place] Comment on above: Performed By: #### B MP ####[facility] Gritxyyezp318[address] [place], [place] [address]Dr. Farhat Leal Glucose [Mass/Vol] 264 mg/dL Critically high 74-106 [facility] Comment on above: Performed By: #### B MP ####[facility] Ejaqniswjo815[address] [place], [place] [address]Dr. Farhat Leal Potassium [Moles/Vol] 5.1 mmol/L Normal 3.5-5.1 [facility] [place] Comment on above: Performed By: #### B MP ####[facility] Xpowtrvagz656[address] [place], [place] [address]Dr. Farhat Leal Sodium [Moles/Vol] 132 mmol/L Critically low 136-145 [facility] Comment on above: Performed By: #### B MP ####[facility] Cspeogylkx2385[address] [place], [place] [address]Dr. Farhat Leal Urea nitrogen [Mass/Vol] 72.0 mg/dL Critically high 7.0-18.0 [facility] [place] Comment on above: Performed By: #### B MP ####[facility] Krmzgbiytd3245[address] [place], [place] [address]Dr. Farhat Leal Urea nitrogen/Creatinine [Mass ratio] 36.2 mg/mg Normal [facility] [place] Comment on above: Performed By: #### B MP ####[facility] Xjfnppxplk390[address] [place], [place] [address]Dr. Farhat Leal PTT HEPARIN MONITORon 2021 aPTT Coag (Bld) [Time] 45.3 s Normal 39.5-54.2 [facility] Comment on above: Performed By: #### P TTHEP ####[facility] Gulgcmocmt816[address] [place], [place] [address]Dr. Farhat Leal aPTT Coag (Bld) [Time] 68.0 s Critically high 39.5-54. 2 [facility] [place] Comment on above: Performed By: #### P TTHEP ####[facility] Fyxxrmypgo518[address] [place], [place] [address]Dr. Farhat Leal aPTT Coag (Bld) [Time] 69.4 s Critically high 39.5-54. 2 [facility] [place] Comment on above: Performed By: #### P TTHEP ####[facility] Xwncgihztt790[address] [place], [place] [address]Dr. Farhat Leal aPTT Coag (Bld) [Time] 53.5 s Normal 39.5-54.2 [facility] Comment on above: Performed By: #### P TTHEP ####[facility] Irbngnehyx[address] [place] [address]Dr. Farhat Leal aPTT Coag (Bld) [Time] 126.9 s Critically high 39.5-54. 2 [facility] [place] Comment on above: Performed By: #### P TTHEP ####[facility] Vmflulhwhf298[address] [place], [place] [address]DrSkylar Leal CBC AUTO DIFFon 09-20-2021 BASO # 0.1 103/ul Normal 0.0-0.1 [facility] [place] Comment on above: Performed By: #### C BC ####[facility] Zzksmfzdre623[address] [place], [place] [address]DrSkylar Leal Basophils/100 WBC (Bld) 0.7 % Normal 0.2-2.0 [facility] [place] Comment on above: Performed By: #### C BC ####[facility] Ddshbwryyi0080[address] [place], [place] [address]DrSkylar Leal EO # 0.2 103/ul Normal 0.0-0.7 [facility] [place] Comment on above: Performed By: #### C BC ####[facility] Igptjwrfdm532[address] [place], [place] [address]DrSkylar Lela Eosinophils/100 WBC (Bld) 3.2 % Normal 0.9-7.0 [facility] [place] Comment on above: Performed By: #### C BC ####[facility] Blwnzlrzjp786[address] [place], [place] [address]DrSkylar Leal Erythrocyte distribution width (RBC) [Ratio] 12.4 % Normal 11.0-15.0 [facility] [place] Comment on above: Performed By: #### C BC ####[facility] Ezvmtdnulp834394 [address] [place], [place] [address]DrSkylar Leal Hematocrit (Bld) [Volume fraction] 40.1 % Critically low 42.0-54.0 [facility] [place] Comment on above: Performed By: #### C BC ####[facility] Pxhwhdbqsh3967[address] [place], [place] [address]Dr. Farhat Leal Hemoglobin (Bld) [Mass/Vol] 13.4 g/dL Critically low 14.0-18.0 [facility] Comment on above: Performed By: #### C BC ####[facility] K[address]rqx[address] [place] [address]Dr. Madelynlorri Leal IG # 0.08 10e3/ul Critically high 0.00-0.03 [facility] Comment on above: Performed By: #### C BC ####[facility] Gmfmuhvpbl9654 [place] [address]Dr. Madelynlorri Leal IG % 1.1 % Critically high 0.0-0.5 [facility] Comment on above: Performed By: #### C BC ####[facility] Nphjodawql1300[address] [place], [place] [address]Dr. Farhat Leal LYMPH # 1.3 103/ul Normal 1.2-3.8 [facility] Comment on above: Performed By: #### C BC ####[facility] Fpbmofvoit814[address] [place], [place] [address]Dr. Farhat Leal Lymphocytes/100 WBC (Bld) 17.3 % Critically low 20.5-60.0 [facility] Comment on above: Performed By: #### C BC ####[facility] O[address]leet[address] [place] [address]DrSkylar Madelynlorri Leal MANUAL DIFF REQ NO Normal [facility] Comment on above: Performed By: #### C BC ####[facility] Awmrfddfko[address] [place], [place] [address]DrSkylar Farhat Elvis MCH (RBC) [Entitic mass] 31.2 pg Normal 25.9-34.0 [facility] Comment on above: Performed By: #### C BC ####[facility] Hbljfdywjh301[address] [place], [place] [address]DrSkylar Farhat Elvis MCHC (RBC) [Mass/Vol] 33.4 g/dL Normal 29.9-35.2 [facility] Comment on above: Performed By: #### C BC ####[facility] Rvshjdqsqp379[address] [place], [place] [address]Dr. Farhat Elvis MCV (RBC) [Entitic vol] 93.3 fL Normal 80.0-94.0 [facility] Comment on above: Performed By: #### C BC ####[facility] Dmuphugdmv64[address] [place] [address]Dr. Farhat Leal MONO # 0.9 103/ul Critically high 0.3-0.8 [facility] Comment on above: Performed By: #### C BC ####[facility] Vwljvgqmpn4776 [place] [address]DrSkylar Farhat Elvis Monocytes/100 WBC (Bld) 12.4 % Critically high 1.7-12.0 [facility] Comment on above: Performed By: #### C BC ####[facility] Uadtpeurgg488[address] [place], [place] [address]Dr. Farhat Leal NEUT # 4.7 103/ul Normal 1.4-6.5 [facility] Comment on above: Performed By: #### C BC ####[facility] Awczlsiwlb566[address] [place], [place] [address]Dr. Farhat Elvis Neutrophils/100 WBC (Bld) 65.3 % Normal 43.0-75.0 [facility] Comment on above: Performed By: #### C BC ####[facility] Nmwpfpxobt740[address] [place], [place] [address]Dr. Farhta Elvis Platelet mean volume (Bld) [Entitic vol] 9.9 fL Normal 9.5-13.5 [facility] Comment on above: Performed By: #### C BC ####[facility] Yczgfryjzq7538[address] [place], [place] [address]Dr. Madelynlorri Elvis PLT 180 103/ul Normal 150-450 [facility] Comment on above: Performed By: #### C BC ####[facility] Patlmipoiu597[address] [place], [place] [address]Dr. Madelynlorri Elvis RBC 4.30 106/ul Critically low 4.70-6.10 [facility] Comment on above: Performed By: #### C BC ####[facility] Qhvmhfkkux8524[address] [place], [place] [address]DrSkylar Leal WBC 7.2 103/ul Normal 4.0-11.0 [facility] Comment on above: Performed By: #### C BC ####[facility] Pozkrytksm220[address] [place], [place] [address]Dr. Farhat Leal PTT HEPARIN MONITORon 2021 aPTT Coag (Bld) [Time] 26.7 s Critically low 39.5-54.2 [facility] Comment on above: Performed By: #### P TTHEP ####[facility] Zevnduataz7425[address] [place], [place] [address]Dr. Farhat Elvis aPTT Coag (Bld) [Time] 121.0 s Critically high 39.5-54. 2 [facility] Comment on above: Performed By: #### P TTHEP ####[facility] Bqrvycacwb5935[address] [place], [place] [address]Dr. Farhat Elvis aPTT Coag (Bld) [Time] 27.6 s Critically low 39.5-54.2 [facility] Comment on above: Performed By: #### P TTHEP ####[facility] Owwhqmbiht17[address] [place], [place] [address]Dr. Farhat Elvis aPTT Coag (Bld) [Time] 139.0 s Critically high 39.5-54. 2 [facility] Comment on above: Performed By: #### P TTHEP ####[facility] Nvplxdxjjn899[address] [place], [place] [address]Dr. Farhat Elvis CBC AUTO DIFFon 09-19-2021 BASO # 0.0 103/ul Normal 0.0-0.1 [facility] Comment on above: Performed By: #### C BC ####[facility] Zpqfzbwksl69039[address] [place], [place] [address]Dr. Farhat Elvis Basophils/100 WBC (Bld) 0.5 % Normal 0.2-2.0 [facility] Comment on above: Performed By: #### C BC ####[facility] Ukbyscbbeh436[address] [place], [place] [address]DrSkylar Leal EO # 0.2 103/ul Normal 0.0-0.7 [facility] [place] Comment on above: Performed By: #### C BC ####[facility] Dkigfobipb[address] [place] [address]Dr. Farhat Leal Eosinophils/100 WBC (Bld) 2.6 % Normal 0.9-7.0 [facility] [place] Comment on above: Performed By: #### C BC ####[facility] Jjyintfwlr8[address] [place] [address]Dr. Farhat Leal Erythrocyte distribution width (RBC) [Ratio] 12.5 % Normal 11.0-15.0 [facility] [place] Comment on above: Performed By: #### C BC ####[facility] Vltlhgynkf05[address] [place] [address]Dr. Farhat Leal Hematocrit (Bld) [Volume fraction] 39.2 % Critically low 42.0-54.0 [facility] [place] Comment on above: Performed By: #### C BC ####[facility] Hvonejvsth718[address] [place], [place] [address]Dr. Farhat Leal Hemoglobin (Bld) [Mass/Vol] 13.3 g/dL Critically low 14.0-18.0 [facility] [place] Comment on above: Performed By: #### C BC ####[facility] Dvbwtzcuty807[address] [place], [place] [address]Dr. Farhat Leal IG # 0.08 10e3/ul Critically high 0.00-0.03 [facility] Comment on above: Performed By: #### C BC ####[facility] Chsbpxsydl8928[address] [place], [place] [address]Dr. Farhat Leal IG % 0.9 % Critically high 0.0-0.5 [facility] Comment on above: Performed By: #### C BC ####[facility] Czpmbepkzi978[address] [place], [place] [address]Dr. Madelynlorri Elvis LYMPH # 1.5 103/ul Normal 1.2-3.8 [facility] Comment on above: Performed By: #### C BC ####[facility] Smyjxipezk645[address] [place], [place] [address]Dr. Farhat Leal Lymphocytes/100 WBC (Bld) 17.2 % Critically low 20.5-60.0 [facility] [place] Comment on above: Performed By: #### C BC ####[facility] Nuicgcrtvz[address] [place] [address]DrSkylar Leal MANUAL DIFF REQ NO Normal [facility] Comment on above: Performed By: #### C BC ####[facility] Gnsohzrpts7[address] [place] [address]Dr. Farhat Leal MCH (RBC) [Entitic mass] 31.7 pg Normal 25.9-34.0 [facility] [place] Comment on above: Performed By: #### C BC ####[facility] Oilcpacnhs[address] [place], [place] [address]Dr. Farhat Leal MCHC (RBC) [Mass/Vol] 33.9 g/dL Normal 29.9-35.2 [facility] Comment on above: Performed By: #### C BC ####[facility] Tadmxjqeln[address] [place], [place] [address]DrSkylar Leal MCV (RBC) [Entitic vol] 93.3 fL Normal 80.0-94.0 [facility] Comment on above: Performed By: #### C BC ####[facility] Newhzeriph287[address] [place], [place] [address]DrSkylar Leal MONO # 1.2 103/ul Critically high 0.3-0.8 [facility] Comment on above: Performed By: #### C BC ####[facility] Nkkcwmrxxz77[address] [place], [place] [address]DrSkylar Leal Monocytes/100 WBC (Bld) 13.7 % Critically high 1.7-12.0 [facility] Comment on above: Performed By: #### C BC ####[facility] Okndpbdiej4201[address] [place], [place] [address]DrSkylar Leal NEUT # 5.5 103/ul Normal 1.4-6.5 [facility] Comment on above: Performed By: #### C BC ####[facility] Zmrukaadlu045[address] [place], [place] [address]DrSkylar Leal Neutrophils/100 WBC (Bld) 65.1 % Normal 43.0-75.0 [facility] [place] Comment on above: Performed By: #### C BC ####[facility] Nwaqsmpifd6529 [place] [address]DrSkylar Farhat Leal Platelet mean volume (Bld) [Entitic vol] 9.6 fL Normal 9.5-13.5 [facility] [place] Comment on above: Performed By: #### C BC ####[facility] Szhpxkjovq3007 [place] [address]DrSkylar Farhat Leal PLT 163 103/ul Normal 150-450 [facility] [place] Comment on above: Performed By: #### C BC ####[facility] Qskkbcbhxz6192 [place] [address]DrSkylar Farhat Leal RBC 4.20 106/ul Critically low 4.70-6.10 [facility] Comment on above: Performed By: #### C BC ####[facility] Wpbzxcwkvz9112[address] [place], [place] [address]DrSkylar Farhat Elvis WBC 8.4 103/ul Normal 4.0-11.0 [facility] [place] Comment on above: Performed By: #### C BC ####[facility] Hjqlfokwes[address]25[address] [place], [place] [address]DrSkylar Farhat Leal POINT OF CARE GLUCOSEon Glucose [Mass/Vol] 300 mg/dL Critically high 74-106 [facility] Comment on above: Performed By: #### P OCGLUC ####[facility] Mnhrqdzdbx2904[address] [place], [place] [address]DrSkylar Farhat Elvis POTASSIUMon 09-19-2021 Potassium [Moles/Vol] 4.9 mmol/L Normal 3.5-5.1 [facility] [place] Comment on above: Performed By: #### K ####[facility] Xxnuafordz817[address] [place], [place] [address]DrSkylar Farhat Elvis PTT HEPARIN MONITORon 2021 aPTT Coag (Bld) [Time] 23.4 s Critically low 39.5-54.2 [facility] Comment on above: Result Comment: repe ated Performed By: #### P TTHEP ####[facility] Tbcaqrjumk2340[address] [place], [place] [address]Dr. Farhat Elvis aPTT Coag (Bld) [Time] 101.2 s Critically high 39.5-54. 2 [facility] Comment on above: Performed By: #### P TTHEP ####[facility] Pfsdvraxpp397[address] [place], [place] [address]Dr. Farhat Leal aPTT Coag (Bld) [Time] 81.0 s Critically high 39.5-54. 2 [facility] Comment on above: Result Comment: Test Repeated. Critical Value Verified Performed By: #### P TTHEP ####[facility] Bodoudsbkh098[address] [place], [place] [address]DrSkylar Leal CBC AUTO DIFFon 09-18-2021 BASO # 0.0 103/ul Normal 0.0-0.1 [facility] [place] Comment on above: Performed By: #### C BC ####[facility] Tjjejoaaik74[address] [place], [place] [address]DrSkylar Leal Basophils/100 WBC (Bld) 0.4 % Normal 0.2-2.0 [facility] [place] Comment on above: Performed By: #### C BC ####[facility] Yxyqmtjrmp[address] [place], [place] [address]DrSkylar Leal EO # 0.1 103/ul Normal 0.0-0.7 [facility] [place] Comment on above: Performed By: #### C BC ####[facility] Zcsysmjoxe[address] [place], [place] [address]DrSkylar Leal Eosinophils/100 WBC (Bld) 0.8 % Critically low 0.9-7.0 [facility] Comment on above: Performed By: #### C BC ####[facility] Jikyujvqaz[address] [place], [place] [address]DrSkylar Leal Erythrocyte distribution width (RBC) [Ratio] 12.4 % Normal 11.0-15.0 [facility] Comment on above: Performed By: #### C BC ####[facility] Fnuhoponho54[address] [place], [place] [address]DrSkylar Leal Hematocrit (Bld) [Volume fraction] 41.7 % Critically low 42.0-54.0 [facility] Comment on above: Performed By: #### C BC ####[facility] Uxeizbwzau4[address] [place] [address]DrSkylar Leal Hemoglobin (Bld) [Mass/Vol] 14.1 g/dL Normal 14.0-18.0 [facility] Comment on above: Performed By: #### C BC ####[facility] Ducxgecins[address] [place] [address]Dr. Farhat Leal IG # 0.06 10e3/ul Critically high 0.00-0.03 [facility] Comment on above: Performed By: #### C BC ####[facility] Nmnyhwaxmp9588 [place] [address]DrSkylar Leal IG % 0.6 % Critically high 0.0-0.5 [facility] Comment on above: Performed By: #### C BC ####[facility] Czpiolgxjb0814 [place] [address]DrSkylar Leal LYMPH # 0.6 103/ul Critically low 1.2-3.8 [facility] Comment on above: Performed By: #### C BC ####[facility] Dhkhsouknq7150 [place] [address]DrSkylar Leal Lymphocytes/100 WBC (Bld) 6.5 % Critically low 20.5-60.0 [facility] Comment on above: Performed By: #### C BC ####[facility] Jlfobznyow3[address] [place] [address]DrSkylar Leal MANUAL DIFF REQ NO Normal [facility] Comment on above: Performed By: #### C BC ####[facility] Uinigmarjx87[address] [place] [address]DrSkylar Leal MCH (RBC) [Entitic mass] 31.6 pg Normal 25.9-34.0 [facility] Comment on above: Performed By: #### C BC ####[facility] Myxhqevlym[address] [place], [place] [address]DrSkylar Leal MCHC (RBC) [Mass/Vol] 33.8 g/dL Normal 29.9-35.2 [facility] Comment on above: Performed By: #### C BC ####[facility] [address] [place] [id number]. Farhat Elvis MCV (RBC) [Entitic vol] 93.5 fL Normal 80.0-94.0 [facility] Comment on above: Performed By: #### C BC ####[facility] Rz[address]rpb8[address] [place] [id number]. Farhat Elvis MONO # 1.0 103/ul Critically high 0.3-0.8 [facility] Comment on above: Performed By: #### C BC ####[facility] [address]xc[address] [place] [address]Dr. Farhat Leal Monocytes/100 WBC (Bld) 10.4 % Normal 1.7-12.0 [facility] Comment on above: Performed By: #### C BC ####[facility] Tibipegtbn[address] [place], [place] [address]Dr. Farhat Leal NEUT # 7.8 103/ul Critically high 1.4-6.5 [facility] Comment on above: Performed By: #### C BC ####[facility] Nlpgesqecy[address] [place], [place] [address]Dr. Farhat Leal Neutrophils/100 WBC (Bld) 81.3 % Critically high 43.0-75.0 [facility] Comment on above: Performed By: #### C BC ####[facility] Qw[address] [place] [address]Dr. Madelynlorri Leal Platelet mean volume (Bld) [Entitic vol] 9.9 fL Normal 9.5-13.5 [facility] Comment on above: Performed By: #### C BC ####[facility] Ghcjxqpinu4[address] [place] [id number]. Farhat Leal PLT 169 103/ul Normal 150-450 [facility] Comment on above: Performed By: #### C BC ####[facility] Qdfiayrikr2442 [place] [id number]. Farhat Leal RBC 4.46 106/ul Critically low 4.70-6.10 [facility] Comment on above: Performed By: #### C BC ####[facility] Shbjewymcb5[address] [place] [id number]. Farhat Leal WBC 9.6 103/ul Normal 4.0-11.0 [facility] Comment on above: Performed By: #### C BC ####[facility] Tibalelacp78[address] [place] [id number]. Farhat Leal BASO # 0.0 103/ul Normal 0.0-0.1 [facility] Comment on above: Performed By: #### C BC ####[facility] Bwpugwvo[address] [place], [place] [address]Dr. Farhat Leal Basophils/100 WBC (Bld) 0.4 % Normal 0.2-2.0 [facility] Comment on above: Performed By: #### C BC ####[facility] Kcoppkb[address] [place], [place] [address]Dr. Farhat Leal EO # 0.1 103/ul Normal 0.0-0.7 [facility] Comment on above: Performed By: #### C BC ####[facility] Ywpgtsbwaf[address] [place], [place] [address]Dr. Farhat Leal Eosinophils/100 WBC (Bld) 1.1 % Normal 0.9-7.0 [facility] Comment on above: Performed By: #### C BC ####[facility] Lusslmffzb[address] [place], [place] [address]Dr. Farhat Leal Erythrocyte distribution width (RBC) [Ratio] 12.6 % Normal 11.0-15.0 [facility] Comment on above: Performed By: #### C BC ####[facility] Zxnyedhygw[address] [place], [place] [address]Dr. Farhat Leal Hematocrit (Bld) [Volume fraction] 40.8 % Critically low 42.0-54.0 [facility] Comment on above: Performed By: #### C BC ####[facility] [address] [place] [address]Dr. Farhat Leal Hemoglobin (Bld) [Mass/Vol] 13.6 g/dL Critically low 14.0-18.0 [facility] Comment on above: Performed By: #### C BC ####[facility] [address]qf[address] [place] [address]Dr. Farhat Leal IG # 0.08 10e3/ul Critically high 0.00-0.03 The [facility] Comment on above: Performed By: #### C BC ####[facility] Evfjpjevgw[address] [place] [address]Dr. Farhat Leal IG % 0.9 % Critically high 0.0-0.5 [facility] Comment on above: Performed By: #### C BC ####[facility] J[address]wmsstzg[address] [place] [address]Dr. Farhat Leal LYMPH # 0.8 103/ul Critically low 1.2-3.8 The [facility] Comment on above: Performed By: #### C BC ####[facility] P[address]rwq[address] [place] [address]Dr. Farhat Leal Lymphocytes/100 WBC (Bld) 8.7 % Critically low 20.5-60.0 [facility] Comment on above: Performed By: #### C BC ####[facility] Av[address]ld[address]zxr[address] [place] [address]Dr. Farhat Leal MANUAL DIFF REQ NO Normal [facility] Comment on above: Performed By: #### C BC ####[facility] Y[address]chtlkv[address] [place] [address]Dr. Farhat Leal MCH (RBC) [Entitic mass] 31.6 pg Normal 25.9-34.0 [facility] Comment on above: Performed By: #### C BC ####[facility] Ajvgqckkdv[address] [place], [place] [address]Dr. Farhat Leal MCHC (RBC) [Mass/Vol] 33.3 g/dL Normal 29.9-35.2 [facility] Comment on above: Performed By: #### C BC ####[facility] Jiw[address]obsog[address] [place] [id number]. Farhat Leal MCV (RBC) [Entitic vol] 94.9 fL Critically high 80.0-94.0 [facility] Comment on above: Performed By: #### C BC ####[facility] Sdocylkdva3175 [place] [id number]. Farhat Leal MONO # 1.0 103/ul Critically high 0.3-0.8 [facility] Comment on above: Performed By: #### C BC ####[facility] Lmyixdwqtz[address] [place], [place] [address]Dr. Farhat Leal Monocytes/100 WBC (Bld) 11.3 % Normal 1.7-12.0 [facility] Comment on above: Performed By: #### C BC ####[facility] Bmwsidppep[address] [place], [place] [address]Dr. Farhat Leal NEUT # 6.9 103/ul Critically high 1.4-6.5 [facility] Comment on above: Performed By: #### C BC ####[facility] Azerybevjo[address] [place], [place] [address]Dr. Farhat Leal Neutrophils/100 WBC (Bld) 77.6 % Critically high 43.0-75.0 [facility] Comment on above: Performed By: #### C BC ####[facility] [address]wr[address] [place], [place] [id number]. Farhat Leal Platelet mean volume (Bld) [Entitic vol] 9.7 fL Normal 9.5-13.5 [facility] Comment on above: Performed By: #### C BC ####[facility] Sgtjghtkab90[address] [place] [id number]. Farhat Elvis PLT 171 103/ul Normal 150-450 [facility] Comment on above: Performed By: #### C BC ####[facility] F[address]wskefs[address] [place], [place] [id number]. Farhat Elvis RBC 4.30 106/ul Critically low 4.70-6.10 [facility] Comment on above: Performed By: #### C BC ####[facility] Pbsbiyrybx[address] [place], [place] [address]Dr. Farhat Leal WBC 8.9 103/ul Normal 4.0-11.0 [facility] Comment on above: Performed By: #### C BC ####[facility] [address]rcolwdwin[address] [place] [address]Dr. Madelynlorri Leal Covid-19 PCR (CVDTB)on SARS-CoV-2 (COVID-19) RNA JOSH+probe Ql (Unsp spec) Not detected Normal NOT DETECTED [facility] Comment on above: Result Comment: [...] for this test is supported by the [place] of Health and Human Service's declaration that [...] be used). Performed By: #### C VDTBH ####[facility] V[address]pwbwpke[address] [place] [address]Dr. Farhat Leal PROF 14(COMP METB)on 022 Albumin [Mass/Vol] 2.6 g/dL Critically low 3.4-5.0 Th e [facility] Comment on above: Performed By: #### C MP ####[facility] Dsdwmlsmry[address] [place], [place] [address]DrSkylar Leal Albumin/Globulin [Mass ratio] 0.7 {ratio} Normal [facility] Comment on above: Performed By: #### C MP ####[facility] Twp[address]yrvce9[address] [place] [address]DrSkylar Leal ALP [Catalytic activity/Vol] 88 U/L Normal 46-116 [facility] Comment on above: Performed By: #### C MP ####[facility] Jqqcqeujxl30[address] [place] [address]Dr. Farhat Leal ALT [Catalytic activity/Vol] 15 U/L Critically low 16-63 [facility] Comment on above: Performed By: #### C MP ####[facility] Joys[address]zasx[address] [place] [address]Dr. Farhat Leal Anion gap [Moles/Vol] 11.7 mmol/L Normal [facility] Comment on above: Performed By: #### C MP ####[facility] Ytftalrgca[address] [place], [place] [address]Dr. Farhat Leal AST [Catalytic activity/Vol] 25 U/L Normal 15-37 [facility] Comment on above: Performed By: #### C MP ####[facility] Qljiipnimr[address] [place], [place] [address]Dr. Farhat Leal Bilirubin [Mass/Vol] 0.6 mg/dL Normal 0.2-1.0 [facility] Comment on above: Performed By: #### C MP ####[facility] Dtsrgvpwjh[address] [place], [place] [address]Dr. Farhat Leal Calcium [Mass/Vol] 8.9 mg/dL Normal 8.5-10.1 [facility] Comment on above: Performed By: #### C MP ####[facility] Dhkzsoutld[address] [place], [place] [address]Dr. Farhat Leal Chloride [Moles/Vol] 93 mmol/L Critically low 98-107 [facility] Comment on above: Performed By: #### C MP ####[facility] X[address]uxczvbn[address] [place], [place] [id number]. Farhat Leal CO2 [Moles/Vol] 28.9 mmol/L Normal 21.0-32.0 The [facility] Comment on above: Performed By: #### C MP ####[facility] Ifecgxyqxx[address] [place], [place] [address]Dr. Farhat Leal Creatinine [Mass/Vol] 2.09 mg/dL Critically high 0.70-1.30 [facility] Comment on above: Performed By: #### C MP ####[facility] Fikghkwswv[address] [place] [address]Dr. Farhat Leal EGFR-AF [place] 38 mL/min/1.73m2 Critically low >=60 [facility] Comment on above: Performed By: #### C MP ####[facility] Xzuhheqtjz[address] [place] [address]Dr. Farhat Leal EGFR-NON AF [place] 31 mL/min/1.73m2 Critically low >=60 [facility] Comment on above: Performed By: #### C MP ####[facility] Ozlbfbjvkx[address] [place], [place] [address]Dr. Farhat Leal Globulin (S) [Mass/Vol] 3.7 g/dL Normal [facility] Comment on above: Performed By: #### C MP ####[facility] Nzwesvbtcs[address] [place], [place] [address]Dr. Farhat Leal Glucose [Mass/Vol] 214 mg/dL Critically high 74-106 T [facility] Comment on above: Performed By: #### C MP ####[facility] Nkitfpdkty[address] [place], [place] [address]Dr. Farhat Leal Potassium [Moles/Vol] 5.6 mmol/L Critically high 3.5-5.1 [facility] Comment on above: Performed By: #### C MP ####[facility] Wxdrjzeicv[address] [place], [place] [address]Dr. Farhat Leal Protein [Mass/Vol] 6.3 g/dL Critically low 6.4-8.2 Th [facility] Comment on above: Performed By: #### C MP ####[facility] Qfhenreihk[address] [place], [place] [address]Dr. Farhat Leal Sodium [Moles/Vol] 128 mmol/L Critically low 136-145 Th [facility] Comment on above: Performed By: #### C MP ####[facility] Qvhfdiramb[address] [place], [place] [address]Dr. Farhat Leal Urea nitrogen [Mass/Vol] 65.0 mg/dL Critically high 7.0-18.0 [facility] Comment on above: Performed By: #### C MP ####[facility] Fxjqpbhycy24[address] [place] [address]Dr. Farhat Leal Urea nitrogen/Creatinine [Mass ratio] 31.1 mg/mg Normal [facility] Comment on above: Performed By: #### C MP ####[facility] Jqdphdsjne[address] [place] [address]Dr. Farhat Leal Albumin [Mass/Vol] 2.5 g/dL Critically low 3.4-5.0 Th e [facility] Comment on above: Performed By: #### T MYRIAM, CMP ####[facility] Agysnicszg[address] [place], [place] [address]Dr. Farhat Leal Albumin/Globulin [Mass ratio] 0.7 {ratio} Normal [facility] Comment on above: Performed By: #### T MYRIAM, CMP ####[facility] Rntvecamjv[address] [place], [place] [address]Dr. Farhat Leal ALP [Catalytic activity/Vol] 83 U/L Normal 46-116 [facility] Comment on above: Performed By: #### T MYRIAM, CMP ####[facility] Flapccqbdl[address] [place], [place] [address]Dr. Farhat Leal ALT [Catalytic activity/Vol] 16 U/L Normal 16-63 [facility] Comment on above: Performed By: #### T MYRIAM, CMP ####[facility] Cwqeykmkfx[address] [place], [place] [address]Dr. Farhat Leal Anion gap [Moles/Vol] 9.7 mmol/L Normal [facility] Comment on above: Performed By: #### T MYRIAM, CMP ####[facility] Yhwmnoqkeo[address] [place], [place] [address]Dr. Farhat Leal AST [Catalytic activity/Vol] 27 U/L Normal 15-37 [facility] Comment on above: Performed By: #### T MYRIAM, CMP ####[facility] Hapjgasqrg[address] [place], [place] [address]Dr. Farhat Leal Bilirubin [Mass/Vol] 0.5 mg/dL Normal 0.2-1.0 [facility] Comment on above: Performed By: #### T SH, CMP ####[facility] Dtyhruzqai[address] [place], [place] [address]Dr. Farhat Leal Calcium [Mass/Vol] 8.8 mg/dL Normal 8.5-10.1 [facility] Comment on above: Performed By: #### T SH, CMP ####[facility] Adpifrkaxu[address] [place], [place] [address]Dr. Madelynlorri Leal Chloride [Moles/Vol] 95 mmol/L Critically low 98-107 [facility] Comment on above: Performed By: #### T SH, CMP ####[facility] Xdklxodgxe[address] [place], [place] [address]Dr. Madelynlorri Leal CO2 [Moles/Vol] 30.5 mmol/L Normal 21.0-32.0 The [facility] Comment on above: Performed By: #### T SH, CMP ####[facility] Cljzmotdvk6[address] [place], [place] [address]Dr. Farhat Elvis Creatinine [Mass/Vol] 2.18 mg/dL Critically high 0.70-1.30 [facility] Comment on above: Performed By: #### T SH, CMP ####[facility] Vapgdftxpk[address] [place], [place] [address]Dr. Madelynlorri Elvis EGFR-AF [place] 36 mL/min/1.73m2 Critically low >=60 [facility] Comment on above: Performed By: #### T SH, CMP ####[facility] Lixonnrlcx[address] [place], [place] [address]Dr. Madelynlorri Elvis EGFR-NON AF [place] 30 mL/min/1.73m2 Critically low >=60 [facility] Comment on above: Performed By: #### T SH, CMP ####[facility] Btgfizikcd[address] [place], [place] [address]Dr. Farhat Leal Globulin (S) [Mass/Vol] 3.5 g/dL Normal [facility] Comment on above: Performed By: #### T SH, CMP ####[facility] Hvvyxvelch[address] [place], [place] [address]Dr. Madelynlorri Leal Glucose [Mass/Vol] 141 mg/dL Critically high 74-106 T [facility] Comment on above: Performed By: #### T MYRIAM, CMP ####[facility] Gcmagxmbns[address] [place], [place] [address]Dr. Madelynlorri Leal Potassium [Moles/Vol] 5.2 mmol/L Critically high 3.5-5.1 [facility] Comment on above: Performed By: #### T MYRIAM, CMP ####[facility] Loiwunxedr[address] [place], [place] [address]Dr. Farhat Leal Protein [Mass/Vol] 6.0 g/dL Critically low 6.4-8.2 [facility] Comment on above: Performed By: #### T MYRIAM, CMP ####[facility] Gnshxzrxpb[address] [place], [place] [address]Dr. Farhat Leal Sodium [Moles/Vol] 130 mmol/L Critically low 136-145 [facility] Comment on above: Performed By: #### T MYRIAM, CMP ####[facility] Xacvesicus[address] [place], [place] [address]Dr. Farhat Leal Urea nitrogen [Mass/Vol] 63.0 mg/dL Critically high 7.0-18.0 [facility] Comment on above: Performed By: #### T MYRIAM, CMP ####[facility] Htbmndjfkj[address] [place], [place] [address]Dr. Farhat Leal Urea nitrogen/Creatinine [Mass ratio] 28.9 mg/mg Normal [facility] Comment on above: Performed By: #### T MYRIAM, CMP ####[facility] Vffdoevfna[address] [place], [place] [address]Dr. Farhat Leal PROTIMEon 09-18-2021 INR Coag (PPP) [Relative time] 1.06 {INR} Normal [facility] Comment on above: Performed By: #### P T, PTT ####[facility] Gaxftzwhuo[address] [place], [place] [address]Dr. Farhat Leal INR GUIDELINES SEE BELOW Normal [facility] Comment on above: Result Comment: MALINA RED INR: 2.0 - 3.0 CONDITIONS NOT LISTED BELOW 2.5 - 3.5 FOR PROSTHETIC HEART VALVE REPLACEMENT 2.5 - 3.5 RECURRENT THROMBOSIS Performed By: #### P T, PTT ####[facility] [address] [place] [address]Dr. Farhat Leal PT Coag (PPP) [Time] 11.4 s Normal 9.0-11.6 [facility] Comment on above: Performed By: #### P T, PTT ####[facility] [address] [place] [address]Dr. Farhat Leal PTTon 09-18-2021 aPTT Coag (Bld) [Time] 27.9 s Normal 22.3-36.2 [facility] Comment on above: Performed By: #### P T, PTT ####[facility] [address]rlgen[address] [place] [address]Dr. Fahrat Leal TSHon 09-18-2021 TSH 7.099 uIU/mL Critically high 0.358-3.740 [facility] Comment on above: Performed By: #### T SH, CMP ####[facility] Drpdlzzwjc[address] [place] [address]Dr. Farhat Leal US SALOME DOP LEG RTon 09-19-19 22 US SALOME DOP LEG RT Normal [facility] XR CHEST 1 Von 09-18-2021 XR CHEST 1 V Normal [facility] XR HIP RT 2 3V W PELVISon XR HIP RT 2 3V W PELVIS Normal [facility] Vital Signs Date Time Vital Sign Value Performing Clinician Facility 03-18-2023 13:37-0500 Body temperature 98.01 [degF] [place] [employer] DO Work Phone: [facility] 03-18-2023 13:37-0500 Diastolic blood pressure 64 mm[Hg] [facility] DO Work Phone: [facility] 03-18-2023 13:37-0500 Heart rate 72 /min [facility] DO Work Phone: [facility] 03-18-2023 13:37-0500 SaO2% (BldA) [Mass fraction] 98 % Ni Petznick DO Work Phone: [facility] 03-18-2023 13:37-0500 Systolic blood pressure 118 mm[Hg] Ni Petznick DO Work Phone: [facility] 07-20-2022 13:35-0400 Body temperature 97.4 [degF] DO Devon Ball Work Phone: [facility] 07-20-2022 13:35-0400 Diastolic blood pressure 50 mm[Hg] DO Devon Ball Work Phone: [facility] 07-20-2022 13:35-0400 Heart rate 67 /min DO Devon Ball Work Phone: [facility] 07-20-2022 13:35-0400 Respiratory rate 20 /min DO Devon Ball Work Phone: [facility] 07-20-2022 13:35-0400 Systolic blood pressure 98 mm[Hg] DO Devon Ball Work Phone: [facility] 06-29-2022 14:46-0400 Body height 193.04 cm DO Devon Ball Work Phone: [facility] 02-26-2022 13:11-0500 Body temperature 96.6 [degF] Hina Peterson MD Work Phone: [facility] 02-26-2022 13:11-0500 Diastolic blood pressure 75 mm[Hg] Hina Peterson MD Work Phone: [facility] 02-26-2022 13:11-0500 Heart rate 75 /min Hina Peterson MD Work Phone: [facility] 02-26-2022 13:11-0500 Systolic blood pressure 88 mm[Hg] Hina Peterson MD Work Phone: [facility] 02-05-2022 08:29-0500 Body temperature 96.69 [degF] [facility] Work Phone: [facility] 02-05-2022 08:29-0500 Diastolic blood pressure 42 mm[Hg] [facility] Work Phone: [facility] 02-05-2022 08:29-0500 Heart rate 79 /min [facility] Work Phone: [facility] 02-05-2022 08:29-0500 SaO2% (BldA) [Mass fraction] 100 % [facility] Work Phone: [facility] 02-05-2022 08:29-0500 Systolic blood pressure 72 mm[Hg] [facility] Work Phone: [facility] 01-12-2022 11:00-0500 Diastolic blood pressure 54 mm[Hg] Alissa Major [employer] Work Phone: [facility] 01-12-2022 11:00-0500 Heart rate 88 /min Alissa Major [employer] Work Phone: [facility] 01-12-2022 11:00-0500 SaO2% (BldA) [Mass fraction] 93 % Alisas Major [employer] Work Phone: [facility] 01-12-2022 11:00-0500 Systolic blood pressure 96 mm[Hg] Alissa Major [employer] Work Phone: [facility] 01-12-2022 10:12-0500 Body temperature 97.9 [degF] Alissa Major [employer] Work Phone: [facility] 01-12-2022 10:12-0500 Respiratory rate 18 /min Alissa Major [employer] Work Phone: [facility] 11-17-2021 15:59-0400 Body height 193 cm No Reeder DO Work Phone: [facility] 11-17-2021 15:59-0400 Body weight 111.58 kg No Reeder DO Work Phone: [facility] 11-17-2021 15:59-0400 Diastolic blood pressure 59 mm[Hg] No Reeder DO Work Phone: [facility] 11-17-2021 15:59-0400 Heart rate 86 /min No Reeder DO Work Phone: [facility] 11-17-2021 15:59-0400 SaO2% (BldA) [Mass fraction] 97 % No Reeder DO Work Phone: [facility] 11-17-2021 15:59-0400 Systolic blood pressure 104 mm[Hg] No Reeder DO Work Phone: [facility] Encounters Encounter Date Encounter Type Care Provider Facility Start: 03-18-2023 End: 03-18-2023 ambulatory NI CABRERA Not Available Start: 03-18-2023 End: 03-18-2023 Office outpatient visit 25 minutes Ni Cabrera DO Work Phone: [facility] [phone] Comment on above: 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 ([facility]) (Primary Dx); 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 ([facility]); Type 1 diabetes mellitus with nephropathy ([facility]); Type 1 diabetes mellitus with hypoglycemia and without coma ([facility] [facility]); 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 ([facility]/HCC) Start: 02-17-2023 End: 02-17-2023 ambulatory Devon Lillie Other [facility] Other Start: 02-17-2023 Telephone encounter Devon Moreira [facility] Start: 01-14-2023 End: 01-14-2023 ambulatory Devon Lillie Other [facility] Other Start: 01-14-2023 [facility] nursing facil c are/day minor complj 15 min [facility] Start: 12-10-2022 End: 12-10-2022 ambulatory Devon Lillie Other [facility] Other Start: 12-10-2022 Sbsq nursing facil c are/day minor complj 15 min [facility] Start: 11-12-2022 End: 11-12-2022 ambulatory Devon Lillie Other [facility] Other Start: 11-12-2022 Sbsq nursing facil c are/day minor complj 15 min [facility] Start: 10-16-2022 Refill Asia Pike MD Work Phone: Transplant Center Comment on above: Med Change Request Start: 10-12-2022 End: 10-12-2022 ambulatory Devon Moreira Other [facility] Other Start: 10-12-2022 Telephone encounter Devon NUNEZ [facility] Start: 10-08-2022 End: 10-08-2022 ambulatory Devon Moreira Other [facility] Other Start: 10-08-2022 Sbsq nursing facil c are/day new problem 25 min [facility] Start: 09-22-2022 Refill Ariadna Mcdowell [facility] Comment on above: Rx Refills Start: 09-10-2022 End: 09-10-2022 ambulatory Devon Moreira Other [facility] Other Start: 09-10-2022 Sbsq nursing facil c are/day new problem 25 min [facility] Start: 09-09-2022 End: 09-09-2022 ambulatory [facility] Start: 08-06-2022 End: 08-06-2022 ambulatory Devon Moreira Other [facility] Other Start: 08-06-2022 Sbsq nursing facil c are/day new problem 25 min [facility] Start: 07-22-2022 End: 07-22-2022 ambulatory Devon Moreira Other [facility] Other Start: 07-22-2022 Telephone encounter Devon Moreira MAYRA [facility] Start: 07-20-2022 End: 07-20-2022 ambulatory Sadia Aguilar Facility:[facility] Start: 07-20-2022 End: 07-20-2022 ambulatory DO Devon Moreira Work Phone: [facility] Work Phone: Start: 07-20-2022 End: 07-20-2022 Discharged Recurring DO Devon Moreira Work Phone: [facility] Work Phone: Start: 07-13-2022 End: 07-13-[address] DEVON MOREIRA Facility:[facility]1 Start: 07-10-2022 End: 07-10-[address] DEVON MOREIRA Facility:[facility] Start: 07-03-2022 End: 07-03-[address] DEVON MOREIRA Facility:[facility]1 Start: 06-26-2022 End: 06-26-[address] DEVON MOREIRA Facility:[facility] Start: 06-26-2022 End: 06-26-[address] DEVON MOREIRA Facility:[facility]1 Start: 06-25-2022 End: 06-25-2022 ambulatory Devon Moreira Other [facility] Other Start: 06-25-2022 Sbsq nursing facil c are/day minor complj 15 min Devon Moreira [facility] Start: 06-19-2022 End: 06-19-[address] DEVON MOREIRA Facility:[facility] Start: 06-15-2022 End: 07-15-2022 ambulatory SHAIKH Kate MURRAY Facility:[facility]1 Start: 06-12-2022 End: 06-12-[address] DOCTOR WALSH Facility:[facility]1 Start: 06-05-2022 Sbsq nursing facil c are/day new problem 25 min Devon [facility] Start: 06-05-2022 End: 06-05-[address] DEVON MOREIRA [facility] Other Start: 05-29-2022 End: 05-29-[address] DEVON MOREIRA Facility:[facility]1 Start: 05-22-2022 End: 05-22-[address] DEVON MOREIRA Facility:[facility]1 Start: 05-20-2022 End: 05-20-[address] DEVON MOREIRA Facility:[facility]1 Start: 05-18-2022 End: 06-12-2022 ambulatory SHAIKH Kate MURRAY Facility:[facility]1 Start: 05-15-2022 End: 05-15-[address] DEVON MOREIRA Facility:[facility]1 Start: 05-13-2022 End: 05-13-2022 ambulatory Van Olivarez SANITOR.OUTBOARD MOTOR MECHANIC Work Phone: [facility] Comment on above: results Start: 05-13-2022 E-mail encounter fro m caregiver Van Olivarez SANITOR.OUTBOARD MOTOR MECHANIC Work Phone: [facility] Start: 05-08-2022 End: 05-08-[address] DEVON MOREIRA Facility:[facility]1 Start: 05-07-2022 End: 05-07-2022 ambulatory Devon Moreira Other [facility] Other Start: 05-07-2022 [facility] nursing facil c are/day new problem 25 min Devon Moreira [facility] Start: 05-06-2022 End: 05-06-2022 ambulatory [...] MOREIRA Facility:H1 Start: 04-02-2022 ambulatory Van cortes SANITOR.OUTBOARD MOTOR MECHANIC Work Phone: [facility] Start: 04-01-2022 End: 04-01-[address] DEVON MOREIRA Facility:[facility]1 Start: 03-22-2022 Anne Pike MD Work Phone: Transplant Center Comment on above: Med Change Request Start: 03-21-2022 ambulatory DIAMOND H FAWWAD Facilit y:H1 Start: 03-11-2022 End: 03-11-[address] DEVON MOREIRA Facility:H1 Start: 03-10-2022 End: 03-10-2022 ambulatory MILAGRO [facility] Start: 02-27-2022 Refill Samira Serna [facility] Comment on above: Rx Refills Start: 02-26-2022 End: 02-26-2022 ambulatory DEVON MOREIRA Facility:[facility] Start: 02-26-2022 End: 02-26-2022 Patient [...] Start: 02-05-2022 End: 02-06-2022 ambulatory ARTUR CHEN Facility:[facility] Start: 02-05-2022 End: 02-05-2022 Patient encounter procedure [facility] Work Phone: [facility]plant Center Comment on above: Kidney replaced by t ransplant (Primary Dx); 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; USP current use of immunosuppressive drug Start: 01-26-2022 End: 01-26-[address] DEVON MOREIRA Facility:[facility]1 Start: 01-20-2022 Telephone encounter Van Olivarez APRN.OUTBOARD MOTOR MECHANIC Work Phone: [facility] Comment on above: Results Start: 01-19-2022 End: 01-19-[address] DEVON MOREIRA Facility:[facility]1 Start: 01-16-2022 ambulatory SHAIKH Kate MURRAY Facilit y:H1 Start: 01-12-2022 End: 01-12-2022 Subsequent hospital visit by physician Alissa Chavira APRN.OUTBOARD MOTOR MECHANIC Work Phone: Angio Comment on above: IILANA (acute kidney in jury) ([facility]) [N17.9] Start: 12-30-2021 End: 12-30-2021 ambulatory Paresh Fonseca MD Work Phone: Infectious Disease Comment on above: MRSA bacteremia (Arabella munira Dx); Diabetic foot ulcer with osteomyelitis (HCC) Start: 12-30-2021 End: 12-30-2021 Telemedicine consultation with patient Paresh Fonseca MD Work Phone: [facility] Start: 12-29-2021 End: 12-29-2021 ambulatory [...] Start: 12-08-2021 Orders Only Artur Burger charles SANITOR.OUTBOARD MOTOR MECHANIC Work Phone: Transplant Center Comment on above: Kidney replaced by t ransplant (Primary Dx) Start: 12-07-2021 ambulatory Paresh Fonseca MD Work Phone: [facility] Comment on above: CoPat Start (copat s top 12/27/21) Start: 12-05-2021 Telephone encounter Paresh Fonseca MD Work Phone: Infectious Disease Comment on above: Patient Update (evus held discussion/) Start: 12-01-2021 Follow-up encounter [facility] Provider [facility] Start: 12-01-2021 Patient encounter procedure [facility] Prov ider [facility] Department Start: 11-23-2021 End: 11-28-2021 [...] management encounter Start: 11-14-2021 End: 11-15-2021 ambulatory [facility] Facility:H1 Start: 10-24-2021 End: 11-15-2021 ambulatory DIAMOND Ktae WHEAT Facility:H1 Start: 10-22-2021 End: 10-23-2021 ambulatory [facility] Facility:H1 Start: 10-06-2021 ambulatory Van cortes SANITOR.OUTBOARD MOTOR MECHANIC Work Phone: [facility] Start: 09-30-2021 Refill Asia Pike MD Work Phone: [facility] Comment on above: Refill Request Start: 09-19-2021 End: 09-24-2021 Evaluation and management of inpatient DR PROSPER LEES Facility:H1 Start: 09-18-2021 End: 09-19-[address] DEVON MOREIRA Facility:[facility]1 Start: 07-11-2021 Refill Asia Pike MD Work Phone: [facility] Comment on above: Refill Request Start: 06-05-2021 Telephone encounter Van Kuldeep Olivarez SANITOR.OUTBOARD MOTOR MECHANIC Work Phone: [facility] Comment on above: Results Start: 02-05-2021 End: 02-13-2021 ambulatory UNKNOWN PROVIDER Facility:[facility] Procedures Date Procedure Procedure Detail Performing Clinician Start: 03-18-2023 Hemoglobin glycosyla rk a1c Ni Cabrera DO Work Phone: Start: 02-05-2022 Creatinine other source Asia Pike MD Work Phone: Start: 02-05-2022 Urnls dip stick/tabl et rgnt auto w/o microscopy Asia Pike MD Work Phone: Start: 01-12-2022 Prothrombin time Alissa Chavira SANITOR.OUTBOARD MOTOR MECHANIC Work Phone: Start: 12-01-2021 [facility] CHECK [facility] Provider Start: 11-29-2021 Microscopic examinat ion of blood, culture DR PROSPER LEES Comment on above: Performed By: #### B [id number] ####[facility] [id number] [place] [id number] Leal Start: 11-27-2021 Insertion of Infusio n [...] renal transplant KIDNEY TRANSPLANT STATUS Van Olivarez SANITOR.OUTBOARD MOTOR MECHANIC Work Phone: History of renal transplant Kidney replaced by transplant Artur Leesjasvir SANITOR.OUTBOARD MOTOR MECHANIC Work Phone: History of renal transplant Kidney replaced by transplant [facility] Work Phone: History of renal transplant Devon Lillie Other History of renal transplant Kidney replaced by transplant Asia Pike MD Work Phone: Plan of Treatment Date Care Activity Detail Author Start: 06-17-2023 End: 06-17-2023 Patient encounter procedure 06/17/2023 2:15 PM EDT Office Visit [facility] [address] [place] [id number] Ni Cabrera DO [address] [place] [address] [facility] [address] Start: 06-16-2023 Hemoglobin A1c measurement Diabetes: Hemoglobin A1C [facility] Start: 02-26-2023 BP CONTROLLED (<130/80) BP CONTROLLE D (<130/80) [facility] Start: 02-05-2023 BP CONTROLLED (<130/80) BP CONTROLLE D (<130/80) [facility] Start: 01-12-2023 BP CONTROLLED (<130/80) BP CONTROLLE D (<130/80) [facility] Start: 11-17-2022 BP CONTROLLED (<130/80) BP CONTROLLE D (<130/80) [facility] Start: 10-16-2022 Influenza vaccination C [facility] Start: 05-15-2022 Medicare Annual Wellness (AWV) Medicare Annual Wellness (AWV) [facility] Start: 04-08-2022 BP CONTROLLED (<130/80) BP CONTROLLE D (<130/80) [facility] Start: 02-15-2022 ADVANCE DIRECTIVE DISCUSSION ADVANCE DIRECTIVE DISCUSSION [facility] Start: 02-15-2022 DEPRESSION ASSESSMENT DEPRESSION ASS ESSMENT [facility] Start: 02-05-2022 COVID-19 VACCINE (5 - Yung risk series) COVID-19 VACCINE (5 - Yung risk series) [facility] Start: 11-27-2021 COVID-19 VACCINE (4 - Booster for Yung series) COVID-19 VACCINE (4 - Booster for Yung series) [facility] Start: 11-04-2021 Hemoglobin A1c/Hemoglobin.total in Blood HBA1C [facility] Start: 10-16-2021 [facility] Start: 03-26-2021 COVID-19 VACCINE (3 - Yung risk 3-dose series) COVID-19 VACCINE (3 - Yung risk 3-dose series) [facility] Start: 03-26-2021 COVID-19 VACCINE (3 - Yung risk series) COVID-19 VACCINE (3 - Yung risk series) [facility] Start: 02-15-2021 ADVANCE DIRECTIVE DISCUSSION ADVANCE DIRECTIVE DISCUSSION [facility] Start: 02-15-2021 DEPRESSION ASSESSMENT DEPRESSION ASS ESSMENT [facility] Start: 01-05-2016 Hepatitis B screening URINE AL BUMIN:CREATININE RATIO [facility] Start: 07-31-2015 Pneumococcal Vaccine : 65+ Years (3 - PCV) Pneumococcal Vaccine: 65+ Years (3 - PCV) [facility] Start: 04-06-2015 Hemoglobin A1c/Hemoglobin.total in Blood HBA1C [facility] Start: 11-22-2010 Hepatitis B surface antibody level LDL CHOLESTEROL [facility] Start: 2009 ADULT PREVNAR-13 ADULT PREVNAR-13 Cl [facility] Start: 2009 PNEUMOVAX AGE 65 AND OVER WITH 5YR LOOKBACK (#1) PNEUMOVAX AGE 65 AND OVER WITH 5YR LOOKBACK (#1) [facility] Start: 1994 SHINGRIX VACCINE (1 of 2) SHINGRIX VACCINE (1 of 2) [facility] Start: 10-18-1963 HEPATITIS A (1 of 2 - Risk 2-dose series) HEPATITIS A (1 of 2 - Risk 2-dose series) [facility] Start: 10-18-1963 Hepatitis A Vaccine (1 of 2 - Risk 2-dose series) Hepatitis A Vaccine (1 of 2 - Risk 2-dose series) [facility] Start: 10-18-1963 SHINGRIX VACCINE (1 of 2) SHINGRIX VACCINE (1 of 2) [facility] Start: 10-18-1963 Urine microalbumin profile [facility] Start: 1962 ANNUAL PCP TEAM SUIT MAKER MATTHEW DISEASE VISIT ANNUAL PCP TEAM CHRONIC DISEASE VISIT [facility] Start: 1956 Adult depression screening assessment DEPRESSION SCREENING [facility] Start: 1954 3 comp foot exam completed DIABETIC FOOT EXAM [facility] Start: 1954 Glaucoma screening Diabetes: R etinopathy Screening [facility] Start: 1954 Hepatitis C antibody , confirmatory test DILATED RETINAL EXAM [facility] Start: 1950 Pneumococcal Vaccine : 65+ (1 - PCV) Pneumococcal Vaccine: 65+ (1 - PCV) [facility] Start: 1950 PNEUMOCOCCAL: 65+ (1 - PCV) PNEUMOCOCCAL: 65+ (1 - PCV) [facility] Start: 1945 HEPATITIS A (1 of 2 - Risk 2-dose series) HEPATITIS A (1 of 2 - Risk 2-dose series) [facility] URINALYSIS, REFLEX MICROSCOPIC URINALYSIS, REFLEX MICROSCOPIC Lab Routine Screening for genitourinary condition Ordered: 10/06/2021 [facility] Work Phone: Comment on above: Ordered: 10/06/2021 URINALYSIS, REFLEX MICROSCOPIC URINALYSIS, REFLEX MICROSCOPIC Lab Routine Screening for genitourinary condition Ordered: 04/02/2022 [facility] Work Phone: Comment on above: Ordered: 04/02/2022 End: 11-17-2022 US LEG ARTERIAL PERIPH UNL VAS LAB US LEG ARTERIAL PERIPH UNL VAS LAB Vascular Lab Routine PAD (peripheral artery disease) (HCC) Nonhealing ulcer of heel (HCC) 1 Occurrences starting 11/17/2021 until 11/17/2022 [facility] Work Phone: Comment on above: 1 Occurrences starti ng 11/17/2021 until 11/17/2022 End: 11-17-2022 US LEG VEIN DVT UNL VAS LAB US LEG VEIN DVT UNL VAS LAB Vascular Lab Routine Acute deep vein thrombosis (DVT) of proximal end of right lower extremity (HCC) 1 Occurrences starting 11/17/2021 until 11/17/2022 [facility] Work Phone: Comment on above: 1 Occurrences starti ng 11/17/2021 until 11/17/2022 [facility] BROTHERS CT & VAS BROTHERS CT & VAS [facility] Immunizations Immunization Date Immunization Notes Care Provider Fa cili 12-11-2021 COVID-19 booster vaccine, age 12+ yr, bivalent (PFIZER-BIONTECH) Paresh Fonseca MD Work Phone: [facility] 12-11-2021 influenza, high-dose , quadrivalent vaccine (FLUZONE HIGH DOSE QUADRIVALENT) Paresh Fonseca MD Work Phone: [facility] 12-11-2021 influenza virus vaccine, unspecified formulation Ariadna Mcdowell Phu [facility] 10-24-2021 influenza, high dose seasonal, preservative-free Ni Petznick DO Work Phone: [facility] 01-19-2019 influenza, high dose seasonal, preservative-free Ni Petznick DO Work Phone: [facility] 11-25-2017 Seasonal trivalent influenza vaccine, adjuvanted, preservative free Ni Petznick DO Work Phone: [facility] 11-05-2016 influenza, high dose seasonal, preservative-free Ni Petznick DO Work Phone: [facility] 07-30-2014 pneumococcal polysaccharide vaccine, 23 valent Ni Petznick DO Work Phone: [facility] 03-09-2011 influenza virus vaccine, unspecified formulation Van Olivarez APRN.OUTBOARD MOTOR MECHANIC Work Phone: [facility] 12-17-2007 influenza virus vaccine, unspecified formulation Van Olivarez APRN.OUTBOARD MOTOR MECHANIC Work Phone: [facility] Work Phone: 02-11-2006 influenza virus vaccine, unspecified formulation Van Olivarez APRN.OUTBOARD MOTOR MECHANIC Work Phone: [facility] Work Phone: 12-07-2003 influenza virus vaccine, unspecified formulation Van Olivarez APRN.[facility] Work Phone: [facility] Work Phone: 12-07-2003 pneumococcal polysaccharide vaccine, 23 valent Van Olivarez APRN.[facility] Work Phone: [facility] Work Phone: NEGATED: Highlighted row has not occurred!12-10-2021 COVID-19 booster vaccine, age 12+ yr, bivalent (FridayNTEmerging Threats) Paresh Fonseca MD Work Phone: [facility] NEGATED: Highlighted row has not occurred!12-10-2021 influenza, high-dose, quadrivalent vaccine (FLUZONE HIGH DOSE QUADRIVALENT) Paresh Fonseca MD Work Phone: [facility] Payers Date Payer Category Payer Medicare MEDICARE MEDICAR E A AND B [id number] 2009-Present [phone] [address] [address] [place] [address] Medicare [id number] 2009 Medicare [id number] [id number] .[id number] 2009 Unknown [employer] [place] [place] [employer] [place] [place] MED[employer] SUPPLEMENT [id number] 2009-Present [phone] [address] [place] [address] Indemnity [id number] [id number] .[id number] 2009 Unknown [id number]. 1.13.159.2.7.3 .286972.315 2009 Unknown [id number] 2.16.8 40.1.766851.19 2009 Unknown [id number] 1959 Medicare [id number] 1959 Self-pay 1944 Unknown [id number] 2.16.840.1.099806.3.579.2.732 1944 Unknown [id number] 2.16.840.1.276664.3.579.2.593 1944 Unknown [id number] 2.16.840.1.046054.3.579.2.593 1944 Unknown [id number] 2.16.840.1.594409.3.579.2.593 1944 Unknown [id number] 2.16.840.1.627731.3.579.2.593 1944 Unknown [id number] 2.16.840.1.756430.3.579.2.593 1944 Unknown [id number] 2.16.840.1.588183.3.579.2.593 1944 Unknown [id number] 2.16.840.1.656114.3.579.2.593 1944 Unknown [id number] 2.16.840.1.399273.3.579.2.593 1944 Unknown [id number] 2.16.840.1.933695.3.579.2.593 1944 Unknown [id number] 2.16.840.1.670674.3.579.2.593 1944 Unknown [id number] 2.16.840.1.550042.3.579.2.593 1944 Unknown [id number] 2.16.840.1.287272.3.579.2.593 1944 Unknown [id number] 2.16.840.1.085527.3.579.2.593 1944 Unknown [id number] 2.16.840.1.596844.3.579.2.593 1944 Unknown [id number] 2.16.840.1.013940.3.579.2.593 1944 Unknown [id number] 2.16.840.1.595035.3.579.2.593 1944 Unknown [id number] 2.16.840.1.091371.3.579.2.593 1944 Unknown [id number] 2.16.840.1.954837.3.579.2.593 1944 Unknown [id number] 2.16.840.1.783757.3.579.2.593 1944 Unknown [id number] 2.16.840.1.004037.3.579.2.593 1944 Unknown [id number] 2.16.840.1.345550.3.579.2.593 1944 Unknown [id number] 2.16.840.1.649089.3.579.2.593 1944 Unknown [id number] 2.16.840.1.229300.3.579.2.593 1944 Unknown [id number] 2.16.840.1.679143.3.579.2.593 1944 Unknown [id number] 2.16.840.1.682791.3.579.2.593 1944 Unknown [id number] 2.16.840.1.997882.3.579.2.593 1944 Unknown [id number] 2.16.840.1.117658.3.579.2.593 1944 Unknown [id number] 2.16.840.1.340441.3.579.2.593 1944 Unknown [id number] 2.16.840.1.287297.3.579.2.593 1944 Unknown [id number] 2.16.840.1.031727.3.579.2.593 1944 Unknown [id number] 2.16.840.1.099138.3.579.2.593 1944 Unknown [id number] 2.16.840.1.464271.3.579.2.593 1944 Unknown [id number] 2.16.840.1.367588.3.579.2.593 1944 Unknown [id number] 2.16.840.1.142950.3.579.2.593 1944 Unknown [id number] 2.16.840.1.539613.3.579.2.593 1944 Unknown [id number] 2.16.840.1.556358.3.579.2.593 1944 Unknown [id number] 2.16.840.1.179901.3.579.2.593 1944 Unknown [id number] 2.16.840.1.949889.3.579.2.593 1944 Unknown [id number] 2.16.840.1.080881.3.579.2.593 1944 Unknown [id number] 2.16.840.1.258362.3.579.2.593 1944 Unknown [id number] 2.16.840.1.441210.3.579.2.593 1944 Unknown [id number] 2.16.840.1.060670.3.579.2.593 1944 Unknown [id number] 2.16.840.1.314339.3.579.2.593 1944 Unknown [id number] 2.16.840.1.167855.3.579.2.593 1944 Unknown [id number] 2.16.840.1.989881.3.579.2.593 1944 Unknown [id number] 2.16.840.1.688487.3.579.2.593 1944 Unknown [id number] 2.16.840.1.695908.3.579.2.125 9 Medicare Medicare Outpatient [id number] 2T [id number] Unknown [id number] 2.16.840.1.708195.3.579.2.593 Unknown [id number] 2.16.840.1.485364.3.579.2.593 Unknown [id number] 2.16.840.1.911385.3.579.2.531 Social History Date Type Detail Facility Start: 03-09-2011 End: 07-07-2022 Tobacco smoking status NHIS Ex-smoker [facility] Work Phone: End: 02-15-1975 History of tobacco use Current smoker [facility] Work Phone: End: 02-15-1975 History of tobacco use Cigarette Smoker [facility] Work Phone: Start: 04-08-2021 End: 02-26-2022 Alcohol intake Current drinker of alcohol (finding) [facility] Start: 1945 Sex Assigned At Not on file C [facility] Start: 03-09-2011 End: 10-20-2022 Cigarettes smoked current (pack per day) - Reported 1 [facility] Work Phone: Start: 03-09-2011 End: 02-26-2022 Tobacco use and exposure Smokeless tobacco non-user [facility] Start: 09-25-2021 History SDOH Financial 5 [facility] Start: 09-25-2021 History SDOH Food Worry 1 [facility] Start: 09-25-2021 History SDOH Transpo rt Med 2 [facility] Start: 09-14-2021 End: 01-12-2022 Exposure to SARS-CoV-2 (event) Not sure [facility] Start: 02-26-2022 End: 10-20-2022 Sex Assigned At [facility] Work Phone: Start: 1945 Sex Assigned At Male F [facility] How hard is it for y ou to pay for the very basics like food, housing, medical care, and heating Not hard at all [facility] Work Phone: (I/We) worried shiloh er (my/our) food would run out before (I/we) got money to buy more. Never true [facility] Work Phone: In the past 12 month s, was there a time when you were not able to pay the mortgage or rent on time? No [facility] Work Phone: Start: 03-18-2023 Alcohol intake Ex-drinker (finding) [facility] How often to you hav e a drink containing alcohol? 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 He is being transported by a bus driver supervisor. 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 documented in this encounter [facility] 01-14-2023 Evaluation note Encounter Date Diagnosis [...] are maintaining regular scheduled appts with their primary teaching assistant. No bleeding complications Dec, Hyperlipidemia LDL goal [...] balance and to avoid dehydration. Dec, terminal computer operator (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 of insulin (ICD-10 - Z79.4) [facility] Other 10-26-2023 Evaluation note* Encounter Date Diagnosis Assessment Notes Treatment Notes Treatment Clinical Notes Nov, Longstanding persistent atrial fibrillation (ICD-10 - I48.11) This patient is in NSR or rate controlled. This patient is anticoagulated to prevent thromboembolic events. They are maintaining regular scheduled appts with their primary teaching assistant. No bleeding complications Nov, Hyperlipidemia LDL goal [...] Z94.0) Monthly labs to transplant clinic Nov, USP (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 of insulin (ICD-10 - Z79.4) [facility] Other 09-28-2023 Evaluation note* Encounter Date Diagnosis [...] are maintaining regular scheduled appts with their primary teaching assistant. No bleeding complications Oct, Type 1 diabetes [...] Z94.0) Continue routine surveillance labs. Oct, terminal computer operator (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 of insulin (ICD-10 - Z79.4) [facility] Other 09-01-2023 Miscellaneous Notes* Telephone Encounter - Mary Martinez - 10/16/2022 1:08 PM EDT Pharmacy comment: REQUEST FOR 90 DAYS PRESCRIPTION. DX Code Needed. 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 No bleeding complications Sep, Type 1 diabetes [...] risk for cerebrovascular and cardiovascular disease. Sep, terminal computer operator (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 of insulin (ICD-10 - Z79.4) Sep, Kidney transplant status (ICD-10 - Z94.0) f/u transplant clinic Continue surveillance labs [facility] Other 08-08-2023 Miscellaneous Notes* Telephone Encounter - Ariadna Mcdowell Tech - 09/22/2022 8:58 AM EDT Pharmacy requesting refills as follows: Requested Prescriptions Pending Prescriptions Disp Refills tacrolimus IR (PROGRAF) 1 mg capsule Sig: Take 1 capsule by mouth DAILY AT 6 PM. Please review and advise. Ariadna Mcdowell, documented in this encounterSycamore Medical Center07-27-2023 Evaluation note* Encounter Date Diagnosis Assessment Notes Treatment Notes Treatment Clinical Notes Aug, Longstanding persistent atrial fibrillation (ICD-10 - I48.11) This patient is in NSR or rate controlled. This patient is anticoagulated to prevent thromboembolic events. They are maintaining regular scheduled appts with their primary teaching assistant. No s/s bleeding Aug, Type 1 diabetes [...] for cerebrovascular and cardiovascular disease. Aug, terminal computer operator (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 of insulin (ICD-10 - Z79.4) Aug, Kidney transplant status (ICD-10 - Z94.0) Continue close surveillance w/ labs [facility] Other 07-26-2023 NotePatient here for 1.5 year follow up and device check. Lightheaded in the office today, as BP is very low. He denies chest pain, SOB, palpitations, and bleeding on warfarin. Had routine labs last week. Review of Systems Musculoskeletal: Positive for arthritis, joint pain and myalgias. Neurological: Positive for light-headedness. All other systems reviewed and are negative.[facility] 09-09-2022 NoteUT Electrophysiology Consult Note Reason for [...] at about 50-60 systolic. patient with friend/ bus driver supervisor from facility, we will take patient to [...] of the right coronary artery with robust dilh-qj-vrxyl collaterals. 5. Normal global left ventricular systolic [...] Follow up with Dr. Galvez in the [facility] in the next 2 weeks; he may follow up with Dr. Orosco as needed for interventional issues. 5. Follow up with Dr. Devon Moreira as scheduled. PMH: Past Medical History: Diagnosis Date Abnormal ECG Arrhythmia Atrial fibrillation (CMS/HCC) Chronic kidney disease Coronary artery disease Diabetes mellitus (CMS/HCC) (more content not included)...[facility]06-22-2023 Evaluation note* Encounter Date Diagnosis Assessment Notes [...] are maintaining regular scheduled appts with their primary teaching assistant. No bleeding complications Jul, Type 1 diabetes [...] risk for cerebrovascular and cardiovascular disease. Jul, USP (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 of insulin (ICD-10 - Z79.4) Jul, Kidney transplant status (ICD-10 - Z94.0) Monthly labs, ongoing surveillance from transplant clinic [facility] Other 05-15-2023 Progress note Author Sadia Aguilar [facility] June 29, 2022 2:47pm Note Date/Time June 29, 2022 2:46p m [facility] [address] [place] [address] Wound Center Provider Note Signed Patient: Alex Almonte MR#: [id number] : 1945 Acct:[id number] Age/Sex: 76 / M Copies to: DO Sadia Whyte APRN~ HPI Date of Visit Date of Visit: Date of Service: 06/29/2022 Time of Service: 14:45 Narrative HPI: 12/30/21 Alex is a 76 year old male presenting to [facility] wound care for aninitial visit for eval and treatment of a sacral/coccyx area pressure ulcer. He resides at [facility]. There is an CAMERA PROTOTYPING ENGINEER present for the visit. Medicalhoney gel will [...] his brief that was cleaned by this typewriter assembly and parts inspector as well as another nursing staff member, [...] from initial visit here Mode of Arrival/ Physiatrist: Facility vehicle Assistive Device Used Today: Wheelchair and Indra Lives with:: Care/Nursing Facility Appetite Description: Within Normal Limits Who helps w/ dressing change?: Nursing Facility Why Do You Need Help?: Can't Reach Ulcer, Limited mobility and Taxing effort to leave home Smoking Status: Former smoker [facility] Medical History (Updated 03/03/22 @ [...] Ulcer/Injury Staging: Unstageable Bed Appearance: Beefy Red, Nimmons, Yellow and Rolled Edges Percent of Wound [...] By: <Electronically signed by DAVID Aguilar> 06/29/221446 [facility] Work Phone: 1(131) 575-565305-11-2023 Evaluation note* Encounter Date Diagnosis Assessment Notes [...] are maintaining regular scheduled appts with their primary teaching assistant. No bleeding complications June, Hyperlipidemia LDL goal <100 (ICD-10 - E78.5) Instructed on diet and exercise with continued statin therapy.Discussed the beneficial effects of lowering cholesterol in reducing the risk for cerebrovascular and cardiovascular disease. June, USP (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 of insulin (ICD-10 - Z79.4) June, Kidney transplant status (ICD-10 - Z94.0) No s/s rejection [facility] Other 04-24-2023 Progress note Author Sadia Aguilar [facility] June 08, 2022 2:10pm Note Date/Time June 08, 2022 2:1 0pm [facility] [address] [place] [address] Wound Center Provider Note Signed Patient: Alex Almonte MR#: [id number] : 1945 Acct:[id number] Age/Sex: 76 / M Copies to: DO Sadia Whyte, DAVID~ HPI Date of Visit Date of Visit: Date of Service: 06/08/2022 Time of Service: 14:07 Narrative HPI: 12/30/21 Alex is a 76 year old male presenting to [facility] wound care for aninitial visit for eval and treatment of a sacral/coccyx area pressure ulcer. He resides at [facility]. There is an CAMERA PROTOTYPING ENGINEER present for the visit. Medicalhoney gel will [...] his brief that was cleaned by this typewriter assembly and parts inspector as well as another nursing staff member, [...] from initial visit here Mode of Arrival/ Physiatrist: Facility vehicle Assistive Device Used Today: Wheelchair and Indra Lives with:: Care/Nursing Facility Appetite Description: Within Normal Limits Who helps w/ dressing change?: Nursing Facility Why Do You Need Help?: Can't Reach Ulcer, Limited mobility and Taxing effort to leave home Smoking Status: Former smoker [facility] Medical History (Updated 03/03/22 @ [...] Ulcer/Injury Staging: Unstageable Bed Appearance: Beefy Red, Nimmons, Yellow and Rolled Edges Percent of Wound [...] <Electronically signed by DAVID Aguilar> 06/08/22 1410 [facility] Work Phone: 1(429) 289-519604-21-2023 Evaluation note* Encounter Date Diagnosis Assessment Notes [...] are maintaining regular scheduled appts with their primary teaching assistant. May, terminal computer operator (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 of insulin (ICD-10 - Z79.4) May, Kidney transplant status (ICD-10 - Z94.0) routine labs per clinic. 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 No open ulcerations present Pain controlled [facility] Other 03-27-2023 Progress note Author Sadia Aguilar [facility] May 11, 2022 1:41pm Note Date/Time May 11, 2022 1:4 0pm [facility] [address] [place] [address] Wound Center Provider Note Signed Patient: Alex Almonte MR#: [id number] : 1945 Acct:[id number] Age/Sex: 76 / M Copies to: Devon Moreira,DO Sadia Aguilar, SANITOR~ HPI Date of Visit Date of Visit: Date of Service: 05/11/2022 Time of Service: 13:38 Narrative HPI: 12/30/21 Alex is a 76 year old male presenting to [facility] wound care for aninitial visit for eval and treatment of a sacral/coccyx area pressure ulcer. He resides at [facility]. There is an CAMERA PROTOTYPING ENGINEER present for the visit. Medicalhoney gel will [...] his brief that was cleaned by this typewriter assembly and parts inspector as well as another nursing staff member, [...] from initial visit here Mode of Arrival/ Physiatrist: Facility vehicle Assistive Device Used Today: Wheelchair and Indra Lives with:: Care/Nursing Facility Appetite Description: Within Normal Limits Who helps w/ dressing change?: Nursing Facility Why Do You Need Help?: Can't Reach Ulcer, Limited mobility and Taxing effort to leave home Smoking Status: Former smoker [facility] Medical History (Updated 03/03/22 @ [...] Ulcer/Injury Staging: Unstageable Bed Appearance: Beefy Red, Nimmons and Yellow Percent of Wound Bed Granulated/Red: [...] <Electronically signed by DAVID Aguilar> 05/11/22 134[address] [facility] Work Phone: 1(750) 102-424403-23-2023 Evaluation note* Encounter Date Diagnosis Assessment Notes [...] are maintaining regular scheduled appts with their primary teaching assistant. Apr, Type 1 diabetes mellitus with hyperglycemia [...] reviewed at the office visit Apr, terminal computer operator (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 of insulin (ICD-10 - Z79.4) Apr, Kidney transplant status (ICD-10 - Z94.0) Serial labs by clinic Hydrate, tatiana ARVIZU [facility] Other 03-10-2023 NoteHNO ID: [id number] Author: Keyur Brown MD Service: ? Author Type: Physician Type: Progress Notes Filed: 04/24/2022 10:32 AM Note Text: Encounter opened in error, patient not seen.[facility]02-28-2023 Progress note Author Sadia Aguilar [facility] April 14, 2022 2:19pm Note Date/Time April 14, 2022 2:18pm [facility] [address] [place] [address] Wound Center Provider Note Signed Patient: Alex Almonte MR#: [id number] : 1945 Acct:[id number] Age/Sex: 76 / M Copies to: DO Sadia Whyte, DAVID~ HPI Date of Visit Date of Visit: Date of Service: 04/14/2022 Time of Service: 14:18 Narrative HPI: 12/30/21 Alex is a 76 year old male presenting to [facility] wound care for aninitial visit for eval and treatment of a sacral/coccyx area pressure ulcer. He resides at [facility]. There is an CAMERA PROTOTYPING ENGINEER present for the visit. Medicalhoney gel will [...] his brief that was cleaned by this typewriter assembly and parts inspector as well as another nursing staff member, [...] from initial visit here Mode of Arrival/ Physiatrist: Facility vehicle Assistive Device Used Today: Wheelchair and Indra Lives with:: Care/Nursing Facility Appetite Description: Within Normal Limits Who helps w/ dressing change?: Nursing Facility Why Do You Need Help?: Can't Reach Ulcer, Limited mobility and Taxing effort to leave home Smoking Status: Former smoker [facility] Medical History (Updated 03/03/22 @ [...] Ulcer/Injury Staging: Unstageable Bed Appearance: Beefy Red, Nimmons and Yellow Percent of Wound Bed Granulated/Red: [...] <Electronically signed by DAVID Aguilar> 04/14/22 [address] [facility] Work Phone: 1(654) 579-324502-16-2023 NotePatient Outreach (KIMBERLY) ALEX ALMONTE ([id number]) 1945 M TRN Date Time Provider Department 04/02/22 VAN OLIVAREZ During your visit today, we recorded the following information about you: Allergies As of Date: 04/02/2022 Noted Allergy Reaction PYRIDOSTIGMINE BROMIDE 08/04/2021 8 - GI Upset Date Reviewed: 02/26/2022 Reviewed by: Braden Abel MA - Fully Assessed Visit Diagnosis:Screening for genitourinary condition [Z13.89] Order(s):URINALYSIS, REFLEX MICROSCOPIC [[id number]] Order #: [id number] Prescriptions as of 04/06/2022 - tacrolimus IR [...] by mouth daily with lunch. 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 DIABETES UNCOMPL ADULT-UNCONTRLLED [[id number]] 02/24/2002 KIDNEY TRANSPLANT STATUS [Z94.0] 09/07/2003 PROPHYLACTIC IMMUNOTHERAPY [Z29.8] 07/30/2006 PRISON STEROIDS [[id number]] 07/30/2006 VITAMIN D DEFICIENCY NOS [E55.9] 09/07/2008 [...] perfusion [R09.89] 09/30/2021 PAD (peripheral artery disease) ([facility]) [I73.9] 09/26/2021 Osteomyelitis (HCC) [M86.9] 11/29/2021 Class 1 obesity due to excess calories with ser*11/29/2021 Mixed hyperlipidemia due to type 2 diabetes myles*11/29/2021 Type 2 diabetes mellitus with diabetic peripher*11/29/2021 Atherosclerosis of [place] artery of extremity w*11/29/2021 Malnutrition of moderate degree (HCC) [E44.0] 12/01/2021 Dermatitis associated with moisture [L30.8] 12/04/2021 Encounter Status:Closed by CONCETTA HOBBS on 04/06/22[facility] 03-30-2022 Miscellaneous Notes* Telephone Encounter - [...] to pharmacy. Kellenfransicovaibhav Dunia documented in this encounterSycamore Medical Center02-07-2023 Progress note Author Sadia Aguilar [facility] March 24, 2022 3:00pm Note Date/Time March 24, 2022 2 :59pm [facility] [address] [place] [address] Wound Center Provider Note Signed Patient: Alex Almonte MR#: [id number] : 1945 Acct:[id number] Age/Sex: 76 / M Copies to: Devon Moreira,DO Sadia Aguilar APRN~ HPI Date of Visit Date of Visit: Date of Service: 03/24/2022 Time of Service: 14:58 Narrative HPI: 12/30/21 Alex is a 76 year old male presenting to [facility] wound care for aninitial visit for eval and treatment of a sacral/coccyx area pressure ulcer. He resides at [facility]. There is an CAMERA PROTOTYPING ENGINEER present for the visit. Medicalhoney gel will [...] his brief that was cleaned by this typewriter assembly and parts inspector as well as another nursing staff member, [...] from initial visit here Mode of Arrival/ Physiatrist: Facility vehicle Assistive Device Used Today: Wheelchair and Indar Lives with:: Care/Nursing Facility Appetite Description: Within Normal Limits Who helps w/ dressing change?: Nursing Facility Why Do You Need Help?: Can't Reach Ulcer, Limited mobility and Taxing effort to leave home Smoking Status: Former smoker [facility] Medical History (Updated 03/03/22 @ [...] Ulcer/Injury Staging: Unstageable Bed Appearance: Beefy Red, Nimmons and Yellow Percent of Wound Bed Granulated/Red: [...] <Electronically signed by DAVID Aguilar> 03/24/22 [address] [facility] Work Phone: 1(552) 484-281101-17-2023 Progress note Author Sadia Aguilar [facility] March 03, 2022 2:41pm Note Date/Time March 03, 2022 2 :41pm [facility] [address] [place] [address] Wound Center Provider Note Signed Patient: Alex Almonte MR#: [id number] : 1945 Acct:[id number] Age/Sex: 76 / M Copies to: DO Sadia Whyte APRN~ HPI Date of Visit Date of Visit: Date of Service: 03/03/2022 Time of Service: 14:38 Narrative HPI: 12/30/21 Alex is a 76 year old male presenting to [facility] wound care for aninitial visit for eval and treatment of a sacral/coccyx area pressure ulcer. He resides at [facility]. There is an CAMERA PROTOTYPING ENGINEER present for the visit. Medicalhoney gel will [...] his brief that was cleaned by this typewriter assembly and parts inspector as well as another nursing staff member, [...] from initial visit here Mode of Arrival/ Physiatrist: Facility vehicle Assistive Device Used Today: Wheelchair and Indra Lives with:: Care/Nursing Facility Appetite Description: Within Normal Limits Who helps w/ dressing change?: Nursing Facility Why Do You Need Help?: Can't Reach Ulcer, Limited mobility and Taxing effort to leave home Smoking Status: Former smoker [facility] Medical History (Updated 03/03/22 @ [...] Ulcer Pressure Ulcer/Injury Staging: Unstageable Bed Appearance: Nimmons and Yellow Percent of Wound Bed Granulated/Red: 90 Percent of Devitalized: 10 Length (cm): 2.2 Width (cm): 1.8 Depth (cm): 1.9 CM Sq: 3.960 Surrounding Tissue Appearance: Nimmons, Hyperpigmented and Satellite lesions Surrounding Tissue Temp: [...] <Electronically signed by DAVID Aguilar> 03/03/22 1441 [facility] Work Phone: 1(701) 236-556401-13-2023 Miscellaneous Notes* Telephone Encounter - RAUL Davidson - 02/27/2022 10:24 AM EST Patient phones requesting refills as follows: Per pts sister takes 1 mg in AM and 1 mg in PM Requested Prescriptions Pending Prescriptions Disp Refills tacrolimus IR (PROGRAF) 1 mg capsule Sig: Take 2 capsules by mouth DAILY (6 AM). Please review and advise. RAUL Davidson documented in this encounterSycamore Medical Center01-12-2023 NoteHNO ID: [id number] Author: Hina Peterson MD Service: ? 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 Magic Cup Wise with lunch aspirin, enteric coated (ASPIRIN, ENTERIC COATED) 81 mg EC tablet Take 1 tablet by mouth once daily. predniSONE (DELTASONE) 5 mg tablet TAKE 1 TABLET BY MOUTH EVERY DAY oxyCODONE IR (ROXICODONE) 5 mg immediate release tablet 1-2 tablets by ORAL/FEEDING TUBE route every 3 hours as needed. Food Supplement, Lactose-Free (ENSURE MAX (more content not included)... [facility]01-12-2023 History of Present illness Narrative* Hina Peterson MD - 02/26/2022 4:25 PM EST Images from the original note were not included. Heart , Vascular and Thoracic Helper DEPARTMENT OF VASCULAR SURGERY OUTPATIENT VISIT DATE [...] maxwell and sutures were removed at the [facility] facility. He comes here with a lateral wound eschar. He denies any fevers, chills, or any drainage. He is on anticoagulation. 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 Patient on mycophenolate mofetil ,cellcept and prednisone Mixed hyperlipidemia due to type 2 diabetes mellitus ([facility]) 11/29/2021 Osteomyelitis ([facility]) 11/29/2021 Paroxysmal atrial fibrillation ([facility]) Renal transplant, status post SA node dysfunction ([facility]) s/p pacemaker Type 2 diabetes mellitus with diabetic neuropathy, with long-term current use of insulin ([facility]) 02/24/2002 PAST SURGICAL HISTORY Procedure Laterality [...] by mouth daily with lunch. Magic Cup Wise with lunch aspirin, enteric coated (ASPIRIN, ENTERIC [...] 2022 TIME: 4:26 PM documented in this encounterSycamore Medical Center01-05-2023 Miscellaneous Notes* Telephone Encounter - [...] Home and cell number(Ask for Alex's nurse) [phone] Diagnosis 4 mo f/u wound check Yumiko Mcclain documented in this encounterSycamore Medical Center01-05-2023 Miscellaneous Notes* Telephone Encounter - Augusta Medrano RN - 02/19/2022 11:11 AM EST Alex Kate Amoret's nursing facility, [facility], called regarding elevated tacrolimus level (23.9). Spoke with bedside nurse, Zoe, today. Level is from last week- unable to clearly determine if medications were held prior to lab work. Reviewed with nurse morning labs should occur prior to lab draws. Patient is scheduled for repeat labs tomorrow. Will assess new level. Augusta Medrano RN documented in this encounterSycamore Medical Center01-04-2023 Miscellaneous Notes* Telephone Encounter - [...] advise. Mercedez Tavares MA documented in this encounterSycamore Medical Center12-27-2022 Progress note Author Sadia Aguilar [facility] February 10, 2022 3:47pm Note Date/Time February 10, 2022 3:47pm [facility] [address] [place] [address] Wound Center Provider Note Signed Patient: Alex Almonte MR#: [id number] : 1945 Acct:[id number] Age/Sex: 76 / M Copies to: DO Sadia Whyte, DAVID~ HPI Date of Visit Date of Visit: Date of Service: 02/10/2022 Time of Service: 15:44 Narrative HPI: 12/30/21 Alex is a 76 year old male presenting to [facility] wound care for aninitial visit for eval and treatment of a sacral/coccyx area pressure ulcer. He resides at [facility]. There is an CAMERA PROTOTYPING ENGINEER present for the visit. Medicalhoney gel will [...] his brief that was cleaned by this typewriter assembly and parts inspector as well as another nursing staff member, few weeks to follow up Subjective Pain Coccyx: Pain Description: Intermittent Pain Intensity: 0 Wound/Ulcer History When did wound start?: 4 weeks ago- from initial visit here Mode of Arrival/ Physiatrist: Facility vehicle Assistive Device Used Today: Wheelchair and Indra Lives with:: Care/Nursing Facility Appetite Description: Within Normal Limits Who helps w/ dressing change?: Nursing Facility Why Do You Need Help?: Can't Reach Ulcer, Limited mobility and Taxing effort to leave home Smoking Status: Former smoker [facility] Medical History (Updated 01/20/22 @ [...] Ulcer Pressure Ulcer/Injury Staging: Unstageable Bed Appearance: Nimmons and Yellow Percent of Wound Bed Granulated/Red: 90 Percent of Devitalized: 10 Length (cm): 2.5 Width (cm): 2.3 Depth (cm): 2.1 CM Sq: 5.750 Surrounding Tissue Appearance: Nimmons, Hyperpigmented and Satellite lesions Surrounding Tissue Temp: [...] By: <Electronically signed by DAVID Aguilar> 02/10/227 [facility] Work Phone: 1(370) 763-340412-22-2022 NoteHNO ID: [id number] Author: Asia Pike MD Service: ? Author Type: Physician Type: Progress Notes Filed: 02/05/2022 9:38 AM Note Text: [facility] Transplant Follow up Portions of this note [...] date with medications. Patient brought paperwork from [facility] with all medications being received. Patient unsure if they have been drawing labs regularly. Last Tac from 01/19: 12.9 and K 5.9. In need of current labs. Lab orders will be sent with patient and follows as below: Kidney and Pancreas Transplant Standing Lab Orders [address] [place], [place] [address] February 05, 2022 Alex Almonte 1945 [id number] STANDARD TESTING: Diagnosis Codes: Z94.0 Kidney Transplant [...] AT YOUR LABORATORY FACILITY AND FAX TO [phone]. PLEASE CALL [phone]. Provider: Dr. Pike Current Outpatient Medications Medication [...] by mouth daily with lunch. Magic Cup Wise with lunch aspirin, enteric coated (ASPIRIN, ENTERIC COATED) 81 mg EC tablet Take 1 tablet by mouth once daily. atorvastatin (LIPITOR) 40 mg tablet 1 tablet by ORAL/FEEDING TUBE route daily at bedtime. (more content not included)...[facility]12-22-2022 History of Present illness Narrative* Asia Pike MD - 02/05/2022 8:20 AM EST Images from the original note were not included. [facility] Urologic and Kidney Helper Transplant Follow up Portions of this note [...] and snacks patient declined. Indra scale at [facility]: 166.2 lbs per patient. Bed sore on coccyx causing discomfort. Being changed regularly at SNF- reported to be smaller around but still as deep. Patient not very up to date with medications. Patient brought paperwork from [facility] with all medications being received. Patient unsure if they have been drawing labs regularly. Last Tac from 01/19: 12.9 and K 5.9. In need of current labs. Lab orders will be sent with patient and follows as below: Kidney and Pancreas Transplant Standing Lab Orders [address] [place], [place] [address] February 05, 2022 Alex Almonte 1945 [id number] STANDARD TESTING: Diagnosis Codes: Z94.0 Kidney Transplant [...] AT YOUR LABORATORY FACILITY AND FAX TO [phone]. PLEASE CALL [phone]. Provider: Dr. Pike Current Outpatient Medications Medication [...] by mouth daily with lunch. Magic Cup Wise with lunch aspirin, enteric coated (ASPIRIN, ENTERIC [...] All other system reviews negative. Augusta Medrano benzene still utility operator: February 05, 2022 9:34 AM I have [...] complexity. Asia Pike MD documented in this encounterSycamore [facility] Center12-06-2022 Progress note Author Sadia Aguilar [facility] January 20, 2022 2:21pm Note Date/Time January 20, 2022 2 :21pm [facility] [address] [place] [address] Wound Center Provider Note Signed Patient: Alex Almonte MR#: [id number] : 1945 Acct:[id number] Age/Sex: 76 / M Copies to: DO Sadia Whyte APRN~ HPI Date of Visit Date of Visit: Date of Service: 01/20/2022 Time of Service: 14:17 Narrative HPI: 12/30/21 Alex is a 76 year old male presenting to [facility] wound care for aninitial visit for eval and treatment of a sacral/coccyx area pressure ulcer. He resides at [facility]. There is an CAMERA PROTOTYPING ENGINEER present for the visit. Medicalhoney gel will [...] from initial visit here Mode of Arrival/ Physiatrist: Facility vehicle Assistive Device Used Today: Wheelchair and Indra Lives with:: Care/Nursing Facility Appetite Description: Within Normal Limits Who helps w/ dressing change?: Nursing Facility Why Do You Need Help?: Can't Reach Ulcer, Limited mobility and Taxing effort to leave home Smoking Status: Former smoker [facility] Medical History (Updated 01/20/22 @ [...] Ulcer Pressure Ulcer/Injury Staging: Unstageable Bed Appearance: Nimmons and Yellow Percent of Wound Bed Granulated/Red: 40 Percent of Devitalized: 60 Length (cm): 5.2 Width (cm): 3.4 Depth (cm): 1.8 CM Sq: 17.680 Surrounding Tissue Appearance: Nimmons and Hyperpigmented Surrounding Tissue Temp: Warm Drainage [...] <Electronically signed by DAVID Aguilar> 01/20/22 [address] [facility] Work Phone: 1(199) 421-831512-06-2022 Miscellaneous Notes* Telephone Encounter - Van Olivarez APRN.CNP - 01/20/2022 1:12 PM EST Labs noted from yesterday. Pt is currently residing at [facility], I spoke with the Nurse, the results has been addressed by Physician caring for pt. He had been placed on Chlor Con and this has been discontinued and hyperkalemia has been treated. Van Olivarez APRN.CNP documented in this encounterSycamore Medical Center11-28-2022 Surgical operation note* Brief Op Note - Misbah Landis PA-C - 01/12/2022 10:41 AM EST BRIEF OPERATIVE / PROCEDURE NOTE LOG ID: [id number] SURGERY/PROCEDURE DATE: 01/12/2022 INCISION/PROCEDURE START TIME: 10:32 AM INCISION CLOSE/PROCEDURE END TIME: 10:35 AM SURGEON(S)/PROCEDURALIST(S) AND WINDOWS VMWARE ADMINISTRATOR(S): Misbah Landis PA-C SURGERY/PROCEDURE(S): Removal tunneled vascular access catheter under local anesthesia ANESTHESIA: Procedural Sedation FINDINGS: Catheter removed intact ESTIMATED BLOOD LOSS: 0 ml SPECIMENS: None COMPLICATIONS: None PRE-OP/PRE-PROCEDURE DIAGNOSIS: Foot Ulcer POST-OP/POST-PROCEDURE DIAGNOSIS: Same as Preop SIGNATURE: Misbah Landis PA-C PATIENT NAME: Alex Almonte DATE: January 12, 2022 TIME: 10:42 AM documented in this encounterSycamore Medical Center11-22-2022 Nurse Note* Laxmi Archibald RN - 01/06/2022 1:55 PM EST Pre-procedure instructions: Contacted patient's sister, Munira Brothers and nurse at [facility], Jada ([phone]) andconfirmed appt. for Gerhard removal scheduled on 01/12/22, at [facility]. If instructions are not followed your [...] signed. Arrival at 9:30am to desk QB-[facility] ([facility]) and check in for your procedure. Cath Lab Nurse/Transportation: How will you be arriving for your procedure? Ambulance service. To be arranged by [facility]. If you develop any of the following symptoms before your procedure, please call [phone]. Chills, joint pain, rash, sore throat, cough, loss of smell, reddened eyes, vomiting, abdominal pains, diarrhea, loss of taste, severe headache, weakness, bruising or bleeding, fever, muscle pain, shortness of breath Recovery expectations: You can expect to be in recovery for 30 minutes following the procedure. Written instructions provided to patient via Future Simplet If you have any questions please call [phone] documented in this encounterSycamore Medical Center11-15-2022 Progress note Author Sadia Aguilar [facility] December 30, 2021 1:49pm Note Date/Time December 30, 2021 1:49pm [facility] [address] [place] [address] Wound Center Provider Note Signed Patient: Alex Almonte MR#: [id number] : 1945 Acct:[id number] Age/Sex: 76 / M Copies to: DO Sadia Whyte APRN~ HPI Date of Visit Date of Visit: Date of Service: 12/30/2021 Time of Service: 13:44 Narrative HPI: 12/30/21 Alex is a 76 year old male presenting to [facility] wound care for aninitial visit for eval and treatment of a sacral/coccyx area pressure ulcer. He resides at [facility]. There is an CAMERA PROTOTYPING ENGINEER present for the visit. Medicalhoney gel will [...] start?: 4 weeks ago Mode of Arrival/ Physiatrist: Facility vehicle Assistive Device Used Today: Wheelchair and Indra Lives with:: Care/Nursing Facility Appetite Description: Within Normal Limits Who helps w/ dressing change?: Nursing Facility Why Do You Need Help?: Can't Reach Ulcer, Limited mobility and Taxing effort to leave home Smoking Status: Former smoker [facility] Medical History (Updated 12/30/21 @ [...] 0.1 CM Sq: 38.500 Surrounding Tissue Appearance: Nimmons and Hyperpigmented Surrounding Tissue Temp: Warm Drainage [...] By: <Electronically signed by DAVID Aguilar> 12/30/21 [address] [facility] Work Phone: 1(765) 811-545011-15-2022 History of Present illness Narrative* Paresh Fonseca [...] the rehab facility He is currently at [facility] in [facility] Seen on video together with Zoe -history [...] has local wound care following this at [facility] WBC 6.0, creatinine -- 0.8. alt 12 [...] by mouth daily with lunch. Magic Cup Wise with lunch aspirin, enteric coated (ASPIRIN, ENTERIC [...] 76 year old male from [facility] 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 History of PAD CAD status post CABG, diabetes, atrial fibrillatioN He originally presented [facility] for having altered mental status and [...] 3. Status post right heel I&D at [facility] on 11/24/2021. MRSA, Enterobacter cloacae [...] will need to coordinate with his SNF [phone] --our ID office will need to arrange for IR gerhard removal. Return to ID as needed 10 Minutes spent via virtual visit. SIGNATURE: Paresh Fonseca MD PATIENT NAME: Alex Almonte DATE: December 30, 2021 TIME: 9:52 AM documented in this encounterSycamore Medical Center11-01-2022 Miscellaneous Notes* Telephone Encounter - Sulma Pardo - 12/16/2021 3:13 PM EDT Pt speech therapy assistant is requesting orders for Stomp ampushield to be taken off pressure relief because it is causing sores on the thigh. Thanks, Sulma Pardo Assistant Operations Manager documented in this encounterSycamore Medical Center10-31-2022 Miscellaneous Notes* Telephone Encounter - Gwen Alfredo Adm Asst I - 12/15/2021 4:11 PM EDT Rpua LYLES from [facility] [phone] called to report IV Vancomycin was started until today. Patient missed 3 days, should patient makeup missed doses? Please advise. Gwen Alfredo Adm Asst I documented in this encounterSycamore Medical Center10-21-2022 Instructions* Patient Instructions* Paresh Fonseca [...] serious illness Are taking any medications (prescription, yfco-ekd-ogysgtk, vitamins, or herbal products) How will I [...] treatment or prevention of COVID-19 go to https://www.fda.gov/vuwtvfuro-qvvgxievabgc-tka- response/tjx-adhfs-pvvxqjotss-cbx-ysjzpc-zfcggvyhq/knbqdogdp-mts-vdnecsclaqsiu for more information. It is your choice [...] to FDA MedWatch at www.fda.gov/medwatch or call 4-070-XWF-1088 or call Online Agility . Additional Information If you have questions, visit the website or call the telephone number provided below. Website Telephone number http://www.Shelfie How can I learn more about COVID-19? Ask your healthcare provider. Visit https://www.cdc.gov/COVID19 Contact your local or state public health department. What is an Emergency Use Authorization? The [place] FDA has made EVUSHELD (tixagevimab co-packaged with cilgavimab) available under an emergency access mechanism called an Emergency Use Authorization EUA. The EUA is supported by a Special Needs [place]anny of Health and Human Service ([facility]) declaration that circumstances exist to justify [...] monohydrate, polysorbate 80, sucrose, water. Distributed by: [employer], [place], [place] Manufactured for: [employer] [place], [place] [employer] 2021. All rightsreserved. documented in this encounterSycamore Medical Center10-21-2022 Miscellaneous Notes* Telephone Encounter - Paresh Fonseca MD - 12/05/2021 3:05 PM EDT Evusheld (tixagevimab/cilgavimab) Eligibility and Patient Discussion The patient agrees to receive Evusheld (tixagevimab 300 mg and cilgavimab 300 mg) at [facility]. The patient verbalized understanding of repeating a COVID test 72 hours prior to the injections. called up patient in response to her Stratus5t message today she tested covid negative on a rapid test on Wednesday this week Discussed evushed fact sheet and she agrees to proceed she will retest again today to be scheduled for Friday [facility] Paresh Fonseca MD documented in this encounterSycamore Medical Center10-03-2022 Instructions* Patient Instructions* No Reeder DO - 11/17/2021 4:26 PM EDT -- continue coumadin -- will get vascular ultrasound for vein and artery of your right leg -- will have you see my interventional cardiology partner regarding your peripheral artery disease and if your artery disease is impairing your wound healing for the leg ulcer documented in this encounterSycamore Medical Center10-03-2022 History of Present illness Narrative* No Reeder DO - 11/17/2021 3:53 PM EDT Images from the original note were not included. Heart and Vascular Helper [facility] Verdugo Department of Cardiovascular Medicine SECTION [...] DVT scan. Leg elevation. No Reeder DO, [facility] Vascular Medicine documented in this encounter[address]16-2022 History of Past illness Narrative* Problem Noted Date Resolved Date Altered tissue perfusion 022 documented as of this encounter (statuses as of 09/30/2021) [address]16-2022 History of Past illness Narrative* Problem Noted Date Resolved Date Altered tissue perfusion documented as of this encounter (statuses as of 10/09/2021) [address]16-2022 History of Past illness Narrative* Problem Noted Date Resolved Date Altered tissue perfusion documented as of this encounter (statuses as of 11/18/2021) [address]16-2022 History of Past illness Narrative* Problem Noted Date Resolved Date Altered tissue perfusion documented as of this encounter (statuses as of 12/01/2021) [address]16-2022 History of Past illness Narrative* Problem Noted Date Resolved Date Altered tissue perfusion documented as of this encounter (statuses as of 12/05/2021) [address]16-2022 History of Past illness Narrative* Problem Noted Date Resolved Date Altered tissue perfusion 022 documented as of this encounter (statuses as of 12/08/2021) [address]16-2022 History of Past illness Narrative* Problem Noted Date Resolved Date Altered tissue perfusion 022 documented as of this encounter (statuses as of 12/08/2021) [address]16-2022 History of Past illness Narrative* Problem Noted Date Resolved Date Altered tissue perfusion 2 022 documented as of this encounter (statuses as of 12/12/2021) [address]16-2022 History of Past illness Narrative* Problem Noted Date Resolved Date Altered tissue perfusion 09/30/2 022 documented as of this encounter (statuses as of 12/15/2021) [address]16-2022 History of Past illness Narrative* Problem Noted Date Resolved Date Altered tissue perfusion 09/30/2 022 documented as of this encounter (statuses as of 12/16/2021) [address]16-2022 History of Past illness Narrative* Problem Noted Date Resolved Date Altered tissue perfusion 08/16/2 022 documented as of this encounter (statuses as of 12/31/2021) [address]16-2022 History of Past illness Narrative* Problem Noted Date Resolved Date Altered tissue perfusion 16/2 022 documented as of this encounter (statuses as of 01/13/2022) [address]16-2022 History of Past illness Narrative* Problem Noted Date Resolved Date Altered tissue perfusion 16/2 022 documented as of this encounter (statuses as of 01/20/2022) [address]16-2022 History of Past illness Narrative* Problem Noted Date Resolved Date Altered tissue perfusion 16/2 022 documented as of this encounter (statuses as of 02/06/2022) [address]16-2022 History of Past illness Narrative* Problem Noted Date Resolved Date Altered tissue perfusion 16/2 022 documented as of this encounter (statuses as of 02/20/2022) [address]16-2022 History of Past illness Narrative* Problem Noted Date Resolved Date Altered tissue perfusion 16/2 022 documented as of this encounter (statuses as of 02/26/2022) [address]16-2022 History of Past illness Narrative* Problem Noted Date Resolved Date Altered tissue perfusion 16/2 022 documented as of this encounter (statuses as of 02/27/2022) [address]16-2022 History of Past illness Narrative* Problem Noted Date Resolved Date Altered tissue perfusion 16/2 022 documented as of this encounter (statuses as of 03/21/2022) [address]16-2022 History of Past illness Narrative* Problem Noted Date Resolved Date Altered tissue perfusion 16/2 022 documented as of this encounter (statuses as of 03/30/2022) [address]16-2022 History of Past illness Narrative* Problem Noted Date Resolved Date Altered tissue perfusion /16/2 022 documented as of this encounter (statuses as of 04/06/2022) [address]16-2022 History of Past illness Narrative* Problem Noted Date Resolved Date Altered tissue perfusion /16/2 022 documented as of this encounter (statuses as of 05/13/2022) [address]16-[address]22 History of Past illness Narrative* Problem Noted Date Diagnosed Date Resolved Date Altered tissue perfusion documented as of this encounter (statuses as of 2022) [facility] illness Narrative* Problem Noted Date Diagnosed Date Resolved Date Altered tissue perfusion documented as of this encounter (statuses as of 10/29/2022) [facility] Miscellaneous Notes* Telephone Encounter - [...] to pharmacy. Katina Duque documented in this encounterSycamore Medical Center05-31-2022 Miscellaneous Notes* Telephone Encounter - [...] and advise. Rosibel Daniel documented in this encounterSycamore Medical Center04-21-2022 Miscellaneous Notes* Telephone Encounter - aVn Olivarez APRN.CNP - 06/05/2021 4:46 PM EDT [...] of proximal end of right lower extremity ([facility])- Primary PAD (peripheral artery disease) ([facility]) Peripheral vascular disease, unspecified Nonhealing ulcer of heel ([facility]) Anticoagulation management encounter Encounter for therapeutic drug monitoring documented in this encounter [facility] note* Diagnosis Encounter for prophylactic measures, unspecified- Primary documented in this encounter [facility] note* Diagnosis Kidney replaced by transplant- Primary documented in this encounter [facility] note* Diagnosis MRSA bacteremia- Primary Bacteremia Diabetic foot ulcer with osteomyelitis ([facility]) Type II or unspecified type diabetes mellitus with other specified manifestations, not stated as uncontrolled ILIANA (acute kidney injury) ([facility]) Acute kidney failure, unspecified documented in this encounter [facility] note* Diagnosis Kidney replaced by transplant- Primary 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 USP current use of immunosuppressive drug documented in this encounter [facility] note* Diagnosis Hx of BKA, right ([facility])- Primary PAD (peripheral artery disease) ([facility]) Peripheral vascular disease, unspecified Mixed hyperlipidemia due to type 2 diabetes mellitus ([facility]) Type II or unspecified type diabetes mellitus with renal manifestations, uncontrolled(250.42) Type II or unspecified type diabetes mellitus with renal manifestations, uncontrolled Type 2 diabetes mellitus with diabetic neuropathy, with long-term current use of insulin (HCC) Type 2 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, with long-term current use of insulin ([facility]) Paroxysmal atrial fibrillation ([facility]) Atrial fibrillation documented in this encounter [facility] note* Diagnosis Screening for genitourinary condition Screening for other and unspecified genitourinary condition documented in this encounter [facility] note* Diagnosis Onset Date Resolution Status At high risk for skin breakdown chronic Diabetes chronic Fecal incontinence chronic Limited mobility chronic Poor appetite chronic Pressure ulcer of sacral region, unstageable chronic Candidiasis resolved [facility] Work Phone: Evaluation noteNo InformationNortMeadville [facility] Center [employer] Other Evaluation note* Diagnosis Kidney replaced by transplant- Primary documented in this encounter [facility] Center[facility] [place] [facility]* Diagnosis Type 1 diabetes mellitus with [...] COLONOSCOPY 1995,2001, 2014 Hospitalization History see above [facility] Other Progress note Author Sadia Aguilar [facility] July 20, 2022 1:48pm Note Date/Time July 20, 2022 1:48p m [facility] [address] [place] [address] Wound Center Provider Note Signed Patient: Alex Almonte MR#: [id number] : 1945 Acct:[id number] Age/Sex: 76 / M Copies to: DO Sadia Whyte APRN~ HPI Date of Visit Date of Visit: Date of Service: 07/20/2022 Time of Service: 13:46 Narrative HPI: 12/30/21 Alex is a 76 year old male presenting to [facility] wound care for aninitial visit for eval and treatment of a sacral/coccyx area pressure ulcer. He resides at [facility]. There is an CAMERA PROTOTYPING ENGINEER present for the visit. Medicalhoney gel will [...] his brief that was cleaned by this typewriter assembly and parts inspector as well as another nursing staff member, [...] from initial visit here Mode of Arrival/ Physiatrist: Facility vehicle Assistive Device Used Today: Wheelchair and Indra Lives with:: Care/Nursing Facility Appetite Description: Within Normal Limits Who helps w/ dressing change?: Nursing Facility Why Do You Need Help?: Can't Reach Ulcer, Limited mobility and Taxing effort to leave home Smoking Status: Former smoker [facility] Medical History (Updated 03/03/22 @ [...] DD/ 1346 Signed By: <Electronically signed by DAIVD Aguilar> 07/20/22 1348 [facility] Work Phone: Reason for referral (narrative)* Outpatient Procedure (Routine) - Authorized Specialty Diagnoses / Procedures Referred By Contac t Referred To Contact [facility] [place] Diagnoses PAD (peripheral artery disease) (HCC) Nonhealing ulcer of heel (HCC) Procedures US LEG ARTERIAL PERIPH UNL VAS LAB DUP-SCAN LXTR ART/ARTL BPGS UNI/LMTD STUDY No Reeder DO [address] [place] [address] [facility] [place] [address] Referral ID Status Reason Start Date Expiration Date Visits Requested Visits Authorized [id number] Authorized Auto-Generat ed Referral 11/17/2021 11/17/2022 1 1 * Outpatient Procedure (Routine) - Authorized Specialty Diagnoses / Procedures Referred By Contac t Referred To Contact [facility] Diagnoses Acute deep vein thrombosis (DVT) of proximal end of right lower extremity (HCC) Procedures US LEG VEIN DVT UNL VAS LAB DUP-SCAN XTR VEINS UNILATERAL/LIMITED STUDY No Reeder DO [address] [place] [address] [place] [address] Referral ID Status Reason Start Date Expiration Date Visits Requested Visits Authorized [id number] Authorized Auto-Generat ed Referral 11/17/2021 11/17/2022 1 1 * Consult, Test, Treat (Routine) - Authorized Specialty Diagnoses / Procedures Referred By Contac t Referred To Contact Cardiology Diagnoses PAD (peripheral artery disease) (HCC) Nonhealing ulcer of heel (HCC) Procedures CONSULT TO CARDIOLOGY OFFICE/OUTPATIENT [facility] HIGH MDM 60-74 MINUTES Savanah Marcelo MD [address] [place] [address] Referral ID Status Reason Start Date Expiration Date Visits Requested Visits Authorized [id number] Authorized PCP Requested Referral 11/17/2021 11/17/2022 1 1 [facility] Summary Purpose Family History No Family History Records Found Relationship Condition Age at Onset Recorded Date/T kartik father Aneurysm Unknown father Parkinson's disease Unknown Advance Directives No Advanced Directives Records FoundDocuments on File Type Date Recorded 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 Expl 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 Advance Directive(s) Latest Code Status [...] Maker Relationship: M ajority of Adult Siblings (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) DNR-CCA 09/26/2021 11:56 AM 10/01/2021 [...] Decision Maker Relationship: Majority of Adult Siblings (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) Code Status History Code Status [...] Reason for Visit Chief Complaint Open Wound ([facility]) Reason for Visit At high [...] and content) DATE CREATED AUTHOR 02/20/2021 [facility] DATE CREATED AUTHOR AUTHOR'S ORGANIZ ATION 07/25/2022 [facility] DATE CREATED AUTHOR AUTHOR'S ORGANIZ ATION 08/16/2022 [facility] DATE CREATED AUTHOR AUTHOR'S ORGANIZ ATION 09/17/2022 [facility] DATE CREATED AUTHOR AUTHOR'S ORGANIZ ATION 01/14/2023 [facility] DATE CREATED AUTHOR AUTHOR'S ORGANLUPE ATION 03/20/2023 [facility] [employer] Source Comments (unrecognize d section and content) In the event this informatio n is protected by the Federal Confidentiality of Alcohol and Drug Abuse Patient Records regulations: The Federal rules restrict any use of the information to criminally investigate or prosecute any alcohol or drug abuse patient.[facility] the event this information is protected by the Federal Confidentiality of Alcohol and Drug Abuse Patient Records regulations: The Federal rules restrict any use of the information to criminally investigate or prosecute any alcohol or drug abuse patient.[facility] CenterIn the event this information is protected by the Federal Confidentiality of Alcohol and Drug Abuse Patient Records regulations: The Federal rules restrict any use of the information to criminally investigate or prosecute any alcohol or drug abuse patient.[facility] CenterIn the event this information is protected by the Federal Confidentiality of Alcohol and Drug Abuse Patient Records regulations: The Federal rules restrict any use of the information to criminally investigate or prosecute any alcohol or drug abuse patient.[facility] CenterIn the event this information is protected by the Federal Confidentiality of Alcohol and Drug Abuse Patient Records regulations: The Federal rules restrict any use of the information to criminally investigate or prosecute any alcohol or drug abuse patient.[facility] CenterIn the event this information is protected by the Federal Confidentiality of Alcohol and Drug Abuse Patient Records regulations: The Federal rules restrict any use of the information to criminally investigate or prosecute any alcohol or drug abuse patient.[facility] CenterIn the event this information is protected by the Federal Confidentiality of Alcohol and Drug Abuse Patient Records regulations: The Federal rules restrict any use of the information to criminally investigate or prosecute any alcohol or drug abuse patient.[facility] CenterIn the event this information is protected by the Federal Confidentiality of Alcohol and Drug Abuse Patient Records regulations: The Federal rules restrict any use of the information to criminally investigate or prosecute any alcohol or drug abuse patient.[facility] CenterIn the event this information is protected by the Federal Confidentiality of Alcohol and Drug Abuse Patient Records regulations: The Federal rules restrict any use of the information to criminally investigate or prosecute any alcohol or drug abuse patient.[facility] CenterIn the event this information is protected by the Federal Confidentiality of Alcohol and Drug Abuse Patient Records regulations: The Federal rules restrict any use of the information to criminally investigate or prosecute any alcohol or drug abuse patient.[facility] CenterIn the event this information is protected by the Federal Confidentiality of Alcohol and Drug Abuse Patient Records regulations: The Federal rules restrict any use of the information to criminally investigate or prosecute any alcohol or drug abuse patient.[facility] CenterIn the event this information is protected by the Federal Confidentiality of Alcohol and Drug Abuse Patient Records regulations: The Federal rules restrict any use of the information to criminally investigate or prosecute any alcohol or drug abuse patient.[facility] CenterIn the event this information is protected by the Federal Confidentiality of Alcohol and Drug Abuse Patient Records regulations: The Federal rules restrict any use of the information to criminally investigate or prosecute any alcohol or drug abuse patient.[facility] CenterIn the event this information is protected by the Federal Confidentiality of Alcohol and Drug Abuse Patient Records regulations: The Federal rules restrict any use of the information to criminally investigate or prosecute any alcohol or drug abuse patient.[facility] CenterIn the event this information is protected by the Federal Confidentiality of Alcohol and Drug Abuse Patient Records regulations: The Federal rules restrict any use of the information to criminally investigate or prosecute any alcohol or drug abuse patient.[facility] CenterIn the event this information is protected by the Federal Confidentiality of Alcohol and Drug Abuse Patient Records regulations: The Federal rules restrict any use of the information to criminally investigate or prosecute any alcohol or drug abuse patient.[facility] CenterIn the event this information is protected by the Federal Confidentiality of Alcohol and Drug Abuse Patient Records regulations: The Federal rules restrict any use of the information to criminally investigate or prosecute any alcohol or drug abuse patient.[facility] CenterIn the event this information is protected by the Federal Confidentiality of Alcohol and Drug Abuse Patient Records regulations: The Federal rules restrict any use of the information to criminally investigate or prosecute any alcohol or drug abuse patient.[facility] CenterIn the event this information is protected by the Federal Confidentiality of Alcohol and Drug Abuse Patient Records regulations: The Federal rules restrict any use of the information to criminally investigate or prosecute any alcohol or drug abuse patient.[facility] CenterIn the event this information is protected by the Federal Confidentiality of Alcohol and Drug Abuse Patient Records regulations: The Federal rules restrict any use of the information to criminally investigate or prosecute any alcohol or drug abuse patient.[facility] CenterIn the event this information is protected by the Federal Confidentiality of Alcohol and Drug Abuse Patient Records regulations: The Federal rules restrict any use of the information to criminally investigate or prosecute any alcohol or drug abuse patient.[facility] CenterIn the event this information is protected by the Federal Confidentiality of Alcohol and Drug Abuse Patient Records regulations: The Federal rules restrict any use of the information to criminally investigate or prosecute any alcohol or drug abuse patient.[facility] CenterIn the event this information is protected by the Federal Confidentiality of Alcohol and Drug Abuse Patient Records regulations: The Federal rules restrict any use of the information to criminally investigate or prosecute any alcohol or drug abuse patient.[facility] CenterIn the event this information is protected by the Federal Confidentiality of Alcohol and Drug Abuse Patient Records regulations: The Federal rules restrict any use of the information to criminally investigate or prosecute any alcohol or drug abuse patient.[facility] CenterIn the event this information is protected by the Federal Confidentiality of Alcohol and Drug Abuse Patient Records regulations: The Federal rules restrict any use of the information to criminally investigate or prosecute any alcohol or drug abuse patient.[facility] CenterIn the event this information is protected by the Federal Confidentiality of Alcohol and Drug Abuse Patient Records regulations: The Federal rules restrict any use of the information to criminally investigate or prosecute any alcohol or drug abuse patient.[facility] Reason for Visit (unrecogniz ed [...] Care Teams (unrecognized sec tion and content) Traveling Sales Representative Relationship Specialty Start Date End Date Devon Moreira, DO [address] [place] [address] PCP - General 05/27/00 Traveling Sales Representative Relationship Specialty Start Date End Date Devon Moreira, DO [address] [place] [address] PCP - General 05/27/00 Traveling Sales Representative Relationship Specialty Start Date End Date Devon Moreira, DO [address] [place] [address] PCP - General 05/27/00 Traveling Sales Representative Relationship Specialty Start Date End Date Devon Moreira, DO [address] [place] [address] PCP - General 05/27/00 Traveling Sales Representative Relationship Specialty Start Date End Date Devon Mroeira, DO [address] [place] [address] PCP - General 05/27/00 Traveling Sales Representative Relationship Specialty Start Date End Date Devon Moreira, DO [address] [place] [address] PCP - General 05/27/00 Traveling Sales Representative Relationship Specialty Start Date End Date Devon Moreira, DO [address] [place] [address] PCP - General 05/27/00 Traveling Sales Representative Relationship Specialty Start Date End Date Devon Moreira, DO [address] [place] [address] PCP - General 05/27/00 Traveling Sales Representative Relationship Specialty Start Date End Date Devon Moreira, DO [address] [place] [address] PCP - General 05/27/00 Traveling Sales Representative Relationship Specialty Start Date End Date Devon Moreira, DO [address] [place] [address] PCP - General 05/27/00 Traveling Sales Representative Relationship Specialty Start Date End Date Devon Moreira, DO [address] [place] [address] PCP - General 05/27/00 Traveling Sales Representative Relationship Specialty Start Date End Date Devon Moreira, DO [address] [place] [address] PCP - General 05/27/00 Traveling Sales Representative Relationship Specialty Start Date End Date Devon Moreira, DO [address] [place] [address] PCP - General 05/27/00 Traveling Sales Representative Relationship Specialty Start Date End Date Devon Moreira, DO [address] [place] [address] PCP - General 05/27/00 Traveling Sales Representative Relationship Specialty Start Date End Date Devon Moreira, DO [address] [place] [address] PCP - General 05/27/00 Traveling Sales Representative Relationship Specialty Start Date End Date Devon Moreira, DO [address] [place] [address] PCP - General 05/27/00 Traveling Sales Representative Relationship Specialty Start Date End Date Devon Moreira, DO [address] [place] [address] PCP - General 05/27/00 Traveling Sales Representative Relationship Specialty Start Date End Date Devon Moreira, DO [address] [place] [address] PCP - General 05/27/00 Traveling Sales Representative Relationship Specialty Start Date End Date Devon Moreira DO [address] [place] [address] PCP - General 05/27/00 Team Status: Active Member Role Status Dates Devon Moreira DO Primary Care Provider Active Team Status: Inactive Member Role Status Dates Devon Moreira DO Primary Care Provider Active Sadia Aguilar APRN Attending Provider Active Traveling Sales Representative Relationship Specialty Start Date End Date Devon Moreira DO [address] [place] [address] PCP - General 05/27/00 Traveling Sales Representative Relationship Specialty Start Date End Date Devon Moreira DO [address] [place] [address] PCP - General 05/27/00 Traveling Sales Representative Relationship Specialty Start Date End Date Ni Cabrera, [address] [facility] [address] [place] [address] PCP - ACO Reach 07/09/22 Devon Moreira MD [address] [place] [id number] PCP - General Internal Medicine 07/14/22 PRN Active and Recently Administ ered Medications (unrecognized section and content) Medication Order 01/10/2022 01/11/2022 01/12/2022 lidocaine (PF) 10 mg/mL (1 %) injection (XYLOCAINE) SUBCUTANEOUS, X (OR/PROCEDURE) PRN, Starting on Wed01/12/22 at 1032, Until Wed01/13/22 at 0303, Intraprocedure 1032 (Given - Provid er: Vani Hdz APRN.[employer]OR [employer]CH[employer]IC) Goals (unrecognized section and content) Goals [...] BE BASED ON THE PRIMARY CLINICAL RECORDS. [facility] Done In :[employer] [facility]. provides no warranty or guarantee of the accuracy or completeness of information in this document.
[2023-03-31 07:58] LABS: Basophils Absolute Auto 0.1 10^3/uL (0.0-0.1); Basophils Percent Auto 0.9 % (0.2-2.0); Eosinophils Absolute Auto 0.2 10^3/uL (0.0-0.7); Hematocrit 32.2 % (42.0-54.0); Hemoglobin 10.3 g/dL (14.0-18.0); Immature Granulocytes Abs Auto 0.03 10^3/uL (0.00-0.03); Immature Granulocytes Pct Auto 0.4 % (0.0-0.5); Lymphocytes Absolute Auto 2.7 10^3/uL (1.2-3.8); Lymphocytes Percent Auto 34.2 % (20.5-60.0); Mean Corpuscular Hemoglobin 27.5 pg (25.9-34.0); Mean Corpuscular Volume 86.1 fL (80.0-94.0); Mean Platelet Volume 10.5 fL (9.5-13.5); Monocytes Percent Auto 12.8 % (1.7-12.0); Neutrophils Absolute Auto 3.9 10^3/uL (1.4-6.5); Neutrophils Percent Auto 48.7 % (43.0-75.0); Platelet Count 239 10^3/uL (150-450); Red Blood Count 3.74 10^6/uL (4.70-6.10); Red Cell Distribution Width 15.9 % (11.0-15.0); White Blood Count 7.9 10^3/uL (4.0-11.0)
[2023-03-31 08:06] LABS: Prothrombin Time 24.2 sec (9.0-11.6)
[2023-03-31 08:11] LABS: Alanine Aminotransferase 14 U/L (16-63); Albumin Globulin Ratio 0.8; Albumin Level 2.6 g/dL (3.4-5.0); Alkaline Phosphatase 64 U/L (46-116); Anion Gap 12.1; Aspartate Amino Transferase 15 U/L (15-37); BUN Creatinine Ratio 34.5; Bilirubin Total 0.6 mg/dL (0.2-1.0); Calcium 8.3 mg/dL (8.5-10.1); Carbon Dioxide 28.9 mmol/L (21.0-32.0); Chloride 104 mmol/L (98-107); Estimated GFR (African America 58 (>=60); Estimated GFR (Non-African Ame 48 (>=60); Globulin 3.4 g/dL; Glucose 112 mg/dL (74-106); Sodium 141 mmol/L (136-145)
[2023-04-04 12:07] LABS: Tacrolimus (FK506), Blood 7.1 ng/mL (2.0-20.0)
== END 2023-03-31 00:51 | disposition home or self-care (01) ==
LOC: LAB 00:50
PROVIDERS: PCP Internal Medicine; Visit Provider Internal Medicine
DX: N18.9 Chronic kidney disease, unspecified (principal); Z51.81 Encounter for therapeutic drug level monitoring
CPT/HCPCS: 36415; 80053; 80197; 85025; 85610

== ENCOUNTER 2023-04-07 00:44 | Outpatient (REF) | payer MEDICARE, OTHER, SELFPAY ==
--- OUTSIDE RECORDS SUMMARY | 2023-04-07 00:48 | XMS_ITS | CCD ---
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 Custom Dressmaker Name Role Phone PROVIDER, UNKNOWN Attending Unavailable [...] Care Unavailable FAGGIONATO, ARTUR Attending Unavailable FAGGIONATO, RATUR Admitting Unavailable BALL, DR TAM Primary Care [...] BALL, DR TAM Admitting Unavailable DO Devon Moerira Primary Care Provider DAVID Aguilar Attending Provider Sadia Aguilar Attending Unavailable Sadia Aguilar Admitting Unavailable Devon Moreira Primary Care Unavailable SARTHAK PARNELL Attending Unavailable MILAGRO QUEEN Referring Unavailable MILAGRO QUEEN Referring Unavailable DEVON MOREIRA Referring Unavailable HINA PETERSON Attending Unavailable DEVON MOREIRA Primary Care Unavailable ARTUR CHEN Referring Unavailable DEVON MOREIRA Primary Care Unavailable Ni Cabrera DO Unavailable [phone] Devon Moreira MD Primary Care Provider NI CABRERA Attending Unavailable DEVON MOREIRA Referring Unavailable Allergies Allergy Classification Reported Allergen(s) Allergy Type Date of Onset Reaction(s) Facility (20 sources) Pyridostigmine; Translations: [PYRIDOSTIGMINE BROMIDE] Drug Allergy 2 GI Upset [facility] Work Phone: (1 source) ALLERGIES NOT ON FILE; Translations: [ALLERGIES NOT ON FILE] Propensity to adverse reactions (disorder) [facility] Repository (1 source) Pyridostigmine Drug Allergy [...] Indications: Type 1 diabetes mellitus with nephropathy ([facility]) 3 units breakfast, 5 units lunch, 8 [...] 10 units and notify provider [facility] [employer] Kershaw [id number] MG (5 sources) take 155-852 tablets by mouth twice daily K [employer] [employer] Kershaw 155-852-130 MG 1 tablet Orally twice daily Active take 155-852 tablets by mouth four times daily take 155-852 tablets by mouth four times daily K [facility]os [facility]ershaw-S[facility] [employer] Kershaw 155-852-130 MG 1 tablet Orally Four times [...] needed. docusate sodium 50 mg / sennosides, long-term 8.6 mg oral tablet (20 sources) Start: [...] by mouth daily with lunch. Magic Cup [place] with lunch 7110 mL 0 12/11/2021 Active Comment on above: Take 237 mL by mouth daily with lunch. [employer] [place] with lunch polyethylene glycol 3350 68321 mg powder for oral solution (20 sources) [...] above: TAKE 1 TABLET BY [facility] DAILY AT BEDTIME. tacrolimus 1 mg [...] Active Start: 01-23-2019 take 1 capsule by [facility] twice daily tacrolimus IR (PROGRAF) 1 mg capsule Take 1 capsule by mouth twice daily. 180 capsule 3 10/09/2021 Suspended Comment on above: TAKE 1 CAPSULE BY MO UT TWICE A DAY*Z94.0* Take 1 capsule by mo [facility] twice daily. 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 of anticoagulants; Translations: [WEDGER MACHINE CURRNT USE ANTICOAGULANTS] Onset: 3 Episodic Other [...] 07-30-2006 Episodic Other aftercare (2 sources) Other intermodal customer service (current) drug therapy; Translations: [OTH WEDGER MACHINE CURRENT DRUG THERAPY] Onset: 02-05-2022 Episodic Other aftercare (4 sources) Encounter for orthopedic aftercare following surgical amputation; Translations: [ENC ORTHOPED AFTERCARE FLW SURG AMP] Onset: 02-05-2022 Episodic Other aftercare (4 sources) 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 of antibiotics; Translations: [HALF-WAY CURRENT USE ANTIBIOTICS] Onset: 12-20-2021 Episodic Other aftercare (1 source) 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 Magic Cup [place] with lunch aspirin, enteric coated (ASPIRIN, ENTERIC [...] am? thanks! RF Pts RN at [facility] reports pts sister picks up Rx from [...] Apply 0. (more content not included)... Normal [facility] Office Visiton 09-09-2022 Follow-up visit [id number] Alex Almonte 1945 M Date Provider Department Center 09/09/2022 1596-SARTHAK PARNELL Hos Family History Problem Relation Age of Onset Cancer Mother Aneurysm Father Cancer Father Parkinsonism Father Family Status - Relation Status Age at Mother Father Level of Service:99136 DC OFFICE/OUTPATIENT ESTABLISHED MOD MDM 30-39 MIN Normal [facility] Glucose Poct Glucometerson 0 07-20-2022 Commemt1 Glu2: Cleaned Meter Normal [facility] Comment on above: Result Comment: PERF ORMED BY: [facility] [address] [place] [address] PATHOLOGIST CLIN APPLICATION SPECIALIST JOSE F ELLIOTT M.D. Performed By: #### G LURICO #### Point of Care testing , Glucose [Mass/Vol] 176 mg/dL Normal [facility] Comment on above: Result Comment: [place] Glucose Reference Range is dependent on time and content of last meal. Glucose of more than 200 mg/dL in a nonstressed, ambulatory subject supports the diagnosis of Diabetes Mellitus. Performed By: #### G MADY #### Point of Care testing , FK506 (TACROLIMUS) WHOLE BLO ODon 07-12-2022 Tacrolimus (FK506), Blood 10.9 ng/mL Normal 2.0-20.0 [facility] Comment on above: Result Comment: Trou gh (immediately following transplant) 15.0 . Trough (steady state, 2 weeks or more after transplant): 3.0 - 8.0 . Performed by LC-MS/MS technology. Performed By: #### F K506T ####[facility] [address] [place], [place] [address]Dr. Farhat Leal CBC AUTO DIFFon 07-10-2022 BASO # 0.0 103/ul Normal 0.0-0.1 [facility] Comment on above: Performed By: #### C BC ####[facility] [address] [place], [place] [address]Dr. Farhat Leal Basophils/100 WBC (Bld) 0.5 % Normal 0.2-2.0 [facility] Comment on above: Performed By: #### C BC ####[facility] [address] [place], [place] [address]Dr. Farhat Leal EO # 0.3 103/ul Normal 0.0-0.7 [facility] Comment on above: Performed By: #### C BC ####[facility] [address] [place], [place] [address]Dr. Farhat Leal Eosinophils/100 WBC (Bld) 4.9 % Normal 0.9-7.0 [facility] Comment on above: Performed By: #### C BC ####[facility] [address] [place], [place] [address]Dr. Farhat Leal Erythrocyte distribution width (RBC) [Ratio] 13.8 % Normal 11.0-15.0 [facility] Comment on above: Performed By: #### C BC ####[facility] [address] [place], [place] [address]Dr. Farhat Leal Hematocrit (Bld) [Volume fraction] 36.6 % Critically low 42.0-54.0 [facility] Comment on above: Performed By: #### C BC ####[facility] [address] [place] [phone]. Farhat Leal Hemoglobin (Bld) [Mass/Vol] 12.2 g/dL Critically low 14.0-18.0 [facility] Comment on above: Performed By: #### C BC ####[facility] [address] [place] [phone]. Farhat Leal IG # 0.01 10e3/ul Normal 0.00-0.03 [facility] Comment on above: Performed By: #### C BC ####[facility] [address] [place], [place] [address]Dr. Farhat Leal IG % 0.2 % Normal 0.0-0.5 [facility] Comment on above: Performed By: #### C BC ####[facility] [address] [place], [place] [address]Dr. Farhat Leal LYMPH # 2.2 103/ul Normal 1.2-3.8 [facility] Comment on above: Performed By: #### C BC ####[facility] [address] [place], [place] [address]Dr. Farhat Leal Lymphocytes/100 WBC (Bld) 33.9 % Normal 20.5-60.0 [facility] Comment on above: Performed By: #### C BC ####[facility] [address] [place], [place] [address]Dr. Farhat Leal MANUAL DIFF REQ NO Normal [facility] Comment on above: Performed By: #### C BC ####[facility] [address] [place], [place] [address]Dr. Farhat Leal MCH (RBC) [Entitic mass] 31.0 pg Normal 25.9-34.0 [facility] Comment on above: Performed By: #### C BC ####[facility] [address] [place], [place] [address]Dr. Farhat Leal MCHC (RBC) [Mass/Vol] 33.3 g/dL Normal 29.9-35.2 [facility] Comment on above: Performed By: #### C BC ####[facility] [address]ns[address] [place] [phone]. Farhat Leal MCV (RBC) [Entitic vol] 93.1 fL Normal 80.0-94.0 [facility] Comment on above: Performed By: #### C BC ####[facility] [address] [place] [phone]. Farhat Leal MONO # 0.7 103/ul Normal 0.3-0.8 [facility] Comment on above: Performed By: #### C BC ####[facility] [address]ejs[address] [place] [phone]. Farhat Leal Monocytes/100 WBC (Bld) 10.8 % Normal 1.7-12.0 [facility] Comment on above: Performed By: #### C BC ####[facility] [address] [place] [phone]. Farhat Leal NEUT # 3.2 103/ul Normal 1.4-6.5 [facility] Comment on above: Performed By: #### C BC ####[facility] [address] [place] [phone]. Farhat Leal Neutrophils/100 WBC (Bld) 49.7 % Normal 43.0-75.0 [facility] Comment on above: Performed By: #### C BC ####[facility] [address]rm[address] [place] [phone]. Farhat Leal Platelet mean volume (Bld) [Entitic vol] 10.9 fL Normal 9.5-13.5 [facility] Comment on above: Performed By: #### C BC ####[facility] [address]qux[address] [place] [phone]. Farhat Leal PLT 195 103/ul Normal 150-450 [facility] Comment on above: Performed By: #### C BC ####[facility] Av[address]zag[address] [place] [phone]. Farhat Leal RBC 3.93 106/ul Critically low 4.70-6.10 [facility] Comment on above: Performed By: #### C BC ####[facility] [address] [place] [phone]. Farhat Leal WBC 6.4 103/ul Normal 4.0-11.0 [facility] Comment on above: Performed By: #### C BC ####[facility] [address] [place] [address]Dr. Farhat Leal MAGNESIUMon 07-10-2022 Magnesium [Mass/Vol] 1.9 mg/dL Normal 1.8-2.4 [facility] Comment on above: Performed By: #### M G, PHOS ####[facility] [address] [place] [address]Dr. Farhat Leal PHOSPHORUSon 07-10-2022 Phosphate [Mass/Vol] 4.7 mg/dL Normal 2.6-4.7 [facility] Comment on above: Performed By: #### M Anais PHOS ####[facility] [address] [place], [place] [address]Dr. Farhat Leal PROF 14(COMP METB)on 023 Albumin [Mass/Vol] 2.7 g/dL Critically low 3.4-5.0 [facility] Comment on above: Performed By: #### C MP ####[facility] [address] [place], [place] [address]Dr. Farhat Leal Albumin/Globulin [Mass ratio] 0.8 {ratio} Normal [facility] Comment on above: Performed By: #### C MP ####[facility] [address]chos[address] [place] [address]Dr. Farhat Leal ALP [Catalytic activity/Vol] 59 U/L Normal 46-116 [facility] Comment on above: Performed By: #### C MP ####[facility] [address] [place] [address]Dr. Farhat Leal ALT [Catalytic activity/Vol] 16 U/L Normal 16-63 [facility] Comment on above: Performed By: #### C MP ####[facility] [address]odg[address] [place] [address]Dr. Farhat Leal Anion gap [Moles/Vol] 12.3 mmol/L Normal [facility] Comment on above: Performed By: #### C MP ####[facility] [address]ix[address] [place] [phone]. Farhat Leal AST [Catalytic activity/Vol] 17 U/L Normal 15-37 [facility] Comment on above: Performed By: #### C MP ####[facility] [address] [place] [phone]. Farhat Leal Bilirubin [Mass/Vol] 0.5 mg/dL Normal 0.2-1.0 [facility] Comment on above: Performed By: #### C MP ####[facility] [address]fu[address] [place] [phone]. Farhat Leal Calcium [Mass/Vol] 8.5 mg/dL Normal 8.5-10.1 [facility] Comment on above: Performed By: #### C MP ####[facility] [address] [place], [place] [address]Dr. Farhat Leal Chloride [Moles/Vol] 104 mmol/L Normal 98-107 [facility] Comment on above: Performed By: #### C MP ####[facility] [address]swaz[address] [place] [phone]. Farhat Leal CO2 [Moles/Vol] 27.6 mmol/L Normal 21.0-32.0 [facility] Comment on above: Performed By: #### C MP ####[facility] Hig[address]ulyca[address] [place] [phone]. Farhat Leal Creatinine [Mass/Vol] 1.79 mg/dL Critically high 0.70-1.30 [facility] Comment on above: Performed By: #### C MP ####[facility] [address]dkj[address] [place] [phone]. Farhat Elvis EGFR-AF JAMAICAN 45 mL/min/1.73m2 Critically low >=60 [facility] Comment on above: Performed By: #### C MP ####[facility] [address]jgwc[address] [place] [phone]. Farhat Elvis EGFR-NON AF JAMAICAN 37 mL/min/1.73m2 Critically low >=60 [facility] Comment on above: Performed By: #### C MP ####[facility] [address]xp[address]ki[address] [place] [address]Dr. Farhat Leal Globulin (S) [Mass/Vol] 3.2 g/dL Normal [facility] Comment on above: Performed By: #### C MP ####[facility] [address]ooqp[address] [place] [phone]. Farhat Leal Glucose [Mass/Vol] 203 mg/dL Critically high 74-106 [facility] Comment on above: Performed By: #### C MP ####[facility] [address]tlrodvm[address] [place] [address]Dr. Farhat Leal Potassium [Moles/Vol] 3.9 mmol/L Normal 3.5-5.1 [facility] Comment on above: Performed By: #### C MP ####[facility] P[address]oxypzn7[address] [place] [address]Dr. Farhat Leal Protein [Mass/Vol] 5.9 g/dL Critically low 6.4-8.2 [facility] Comment on above: Performed By: #### C MP ####[facility] [address]gesp[address] [place] [address]Dr. Farhat Leal Sodium [Moles/Vol] 140 mmol/L Normal 136-145 [facility] Comment on above: Performed By: #### C MP ####[facility] [address]tsowm[address] [place] [address]Dr. Farhat Leal Urea nitrogen [Mass/Vol] 61.0 mg/dL Critically high 7.0-18.0 [facility] Comment on above: Performed By: #### C MP ####[facility] [address]wkzfu[address] [place] [address]Dr. Farhat Leal Urea nitrogen/Creatinine [Mass ratio] 34.1 mg/mg Normal [facility] Comment on above: Performed By: #### C MP ####[facility] F[address]xi[address]fk[address] [place] [phone]. Farhat Elvis PROTIMEon 07-10-2022 INR Coag (PPP) [Relative time] 2.95 {INR} Normal [facility] Comment on above: Performed By: #### P T ####[facility] [address]ttx[address] [place] [address]Dr. Farhat Leal INR GUIDELINES SEE BELOW Normal [facility] Comment on above: Result Comment: MALINA RED INR: 2.0 - 3.0 CONDITIONS NOT LISTED BELOW 2.5 - 3.5 FOR PROSTHETIC HEART VALVE REPLACEMENT 2.5 - 3.5 RECURRENT THROMBOSIS Performed By: #### P T ####[facility] [address] [place], [place] [address]Dr. Farhat Leal PT Coag (PPP) [Time] 29.4 s Critically high 9.0-11.6 [facility] Comment on above: Performed By: #### P T ####[facility] [address]cp[address] [place], [place] [address]Dr. Farhat Leal FK506 (TACROLIMUS) WHOLE BLO ODon 07-07-2022 Tacrolimus (FK506), Blood 8.3 ng/mL Normal 2.0-20.0 [facility] Comment on above: Result Comment: Trou gh (immediately following transplant) 15.0 . Trough (steady state, 2 weeks or more after transplant): 3.0 - 8.0 . Performed by LC-MS/MS technology. Performed By: #### F K506T ####[facility] [address] [place], [place] [address]Dr. Farhat Leal CBC AUTO DIFFon 07-03-2022 BASO # 0.0 103/ul Normal 0.0-0.1 [facility] Comment on above: Performed By: #### C BC ####[facility] [address] [place], [place] [address]Dr. Farhat Leal Basophils/100 WBC (Bld) 0.6 % Normal 0.2-2.0 [facility] Comment on above: Performed By: #### C BC ####[facility] [address]trp[address] [place], [place] [address]Dr. Farhat Leal EO # 0.3 103/ul Normal 0.0-0.7 [facility] Comment on above: Performed By: #### C BC ####[facility] Jngvnvjtsq86[address] [place] [phone]. Farhat Leal Eosinophils/100 WBC (Bld) 4.1 % Normal 0.9-7.0 [facility] Comment on above: Performed By: #### C BC ####[facility] Fkipebaiyf7[address] [place] [phone]. Farhat Leal Erythrocyte distribution width (RBC) [Ratio] 14.0 % Normal 11.0-15.0 [facility] Comment on above: Performed By: #### C BC ####[facility] [address] [place], [place] [address]Dr. Farhat Leal Hematocrit (Bld) [Volume fraction] 35.9 % Critically low 42.0-54.0 [facility] Comment on above: Performed By: #### C BC ####[facility] [address] [place], [place] [address]Dr. Farhat Leal Hemoglobin (Bld) [Mass/Vol] 12.0 g/dL Critically low 14.0-18.0 [facility] Comment on above: Performed By: #### C BC ####[facility] [address] [place], [place] [address]Dr. Farhat Leal IG # 0.04 10e3/ul Critically high 0.00-0.03 [facility] Comment on above: Performed By: #### C BC ####[place] [address]vo[address] [place], [place] [address]Dr. Farhat Leal IG % 0.6 % Critically high 0.0-0.5 [facility] Comment on above: Performed By: #### C BC ####[facility] [address]ouvq[address] [place], [place] [address]Dr. Farhat Leal LYMPH # 1.5 103/ul Normal 1.2-3.8 [facility] Comment on above: Performed By: #### C BC ####[facility] [address]sp[address] [place], [place] [address]Dr. Farhat Leal Lymphocytes/100 WBC (Bld) 21.5 % Normal 20.5-60.0 [facility] Comment on above: Performed By: #### C BC ####[facility] Xp[address]dfjifm8[address] [place] [phone]. Farhat Leal MANUAL DIFF REQ NO Normal [facility] Comment on above: Performed By: #### C BC ####[facility] [address]ubtomkgj32[address] [place] [phone]. Farhat Leal MCH (RBC) [Entitic mass] 30.8 pg Normal 25.9-34.0 [facility] Comment on above: Performed By: #### C BC ####[facility] [address]klfhdr[address] [place] [phone]. Farhat Leal MCHC (RBC) [Mass/Vol] 33.4 g/dL Normal 29.9-35.2 [facility] Comment on above: Performed By: #### C BC ####[facility] [address] [place], [place] [address]Dr. Farhat Leal MCV (RBC) [Entitic vol] 92.1 fL Normal 80.0-94.0 [facility] Comment on above: Performed By: #### C BC ####[facility] [address] [place], [place] [address]Dr. Farhat Leal MONO # 0.6 103/ul Normal 0.3-0.8 [facility] Comment on above: Performed By: #### C BC ####[facility] [address]cfj[address] [place], [place] [address]Dr. Farhat Leal Monocytes/100 WBC (Bld) 8.7 % Normal 1.7-12.0 [facility] Comment on above: Performed By: #### C BC ####[facility] [address]fnk[address] [place], [place] [address]Dr. Farhat Leal NEUT # 4.4 103/ul Normal 1.4-6.5 [facility] Comment on above: Performed By: #### C BC ####[facility] [address] [place], [place] [address]Dr. Farhat Leal Neutrophils/100 WBC (Bld) 64.5 % Normal 43.0-75.0 [facility] Comment on above: Performed By: #### C BC ####[facility] [address]ib[address]vf3[address] [place] [address]Dr. Farhat Leal Platelet mean volume (Bld) [Entitic vol] 10.1 fL Normal 9.5-13.5 [facility] Comment on above: Performed By: #### C BC ####[facility] [address]qtejvdc[address] [place] [address]Dr. Farhat Leal PLT 177 103/ul Normal 150-450 [facility] Comment on above: Performed By: #### C BC ####[facility] Foq[address]ipqff[address] [place] [address]Dr. Farhat Leal RBC 3.90 106/ul Critically low 4.70-6.10 [facility] Comment on above: Performed By: #### C BC ####[facility] [address]utuclflbf[address]28 [place] [address]Dr. Farhat Leal WBC 6.8 103/ul Normal 4.0-11.0 [facility] Comment on above: Performed By: #### C BC ####[facility] Txvmsidlao6[address] [place] [address]Dr. Farhat Leal PROF 14(COMP METB)on 023 Albumin [Mass/Vol] 2.8 g/dL Critically low 3.4-5.0 [facility] Comment on above: Performed By: #### C MP ####[facility] Naifivwvca77[address] [place] [address]Dr. Farhat Leal Albumin/Globulin [Mass ratio] 0.8 {ratio} Normal [facility] Comment on above: Performed By: #### C MP ####[facility] Pvzhvgubki94[address] [place] [address]Dr. Farhat Leal ALP [Catalytic activity/Vol] 68 U/L Normal 46-116 [facility] Comment on above: Performed By: #### C MP ####[facility] Ppdpvigesc6138 [place] [address]Dr. Farhat Leal ALT [Catalytic activity/Vol] 20 U/L Normal 16-63 [facility] Comment on above: Performed By: #### C MP ####[facility] Wtslpafjcr9277 [place] [phone]. Farhat Leal Anion gap [Moles/Vol] 11.1 mmol/L Normal [facility] Comment on above: Performed By: #### C MP ####[facility] I[address]rdnaoaf[address] [place] [phone]. Farhat Leal AST [Catalytic activity/Vol] 22 U/L Normal 15-37 [facility] Comment on above: Performed By: #### C MP ####[facility] [address] [place], [place] [address]Dr. Farhat Leal Bilirubin [Mass/Vol] 0.4 mg/dL Normal 0.2-1.0 [facility] Comment on above: Performed By: #### C MP ####[facility] [address]az[address] [place], [place] [address]Dr. Farhat Leal Calcium [Mass/Vol] 8.5 mg/dL Normal 8.5-10.1 [facility] Comment on above: Performed By: #### C MP ####[facility] [address] [place], [place] [address]Dr. Farhat Leal Chloride [Moles/Vol] 106 mmol/L Normal 98-107 [facility] Comment on above: Performed By: #### C MP ####[facility] [address]xqbbut[address] [place], [place] [address]Dr. Farhat Leal CO2 [Moles/Vol] 29.1 mmol/L Normal 21.0-32.0 [facility] Comment on above: Performed By: #### C MP ####[facility] [address]cbk[address] [place], [place] [address]Dr. Farhat Leal Creatinine [Mass/Vol] 1.70 mg/dL Critically high 0.70-1.30 [facility] Comment on above: Performed By: #### C MP ####[facility] [address]apiro[address] [place], [place] [address]Dr. Farhat Leal EGFR-AF J[place]ICAN 48 mL/min/1.73m2 Critically low >=60 [facility] Comment on above: Performed By: #### C MP ####[facility] [address]bcflre64[address] [place] [address]Dr. Farhat Leal EGFR-NON AF [place] 39 mL/min/1.73m2 Critically low >=60 [facility] Comment on above: Performed By: #### C MP ####[facility] Xrvdkhzmqx2460 [place] [address]Dr. Farhat Leal Globulin (S) [Mass/Vol] 3.6 g/dL Normal [facility] Comment on above: Performed By: #### C MP ####[facility] Shwxmppxvb55[address] [place] [address]Dr. Farhat Leal Glucose [Mass/Vol] 312 mg/dL Critically high 74-106 [facility] [facility] Comment on above: Performed By: #### C MP ####[place] [address]fpxfa[address] [place] [address]Dr. Farhat Leal Potassium [Moles/Vol] 4.2 mmol/L Normal 3.5-5.1 [facility] Comment on above: Performed By: #### C MP ####[place] Sh[address]wsqnwx[address] [place], [place] [address]Dr. Farhat Leal Protein [Mass/Vol] 6.4 g/dL Normal 6.4-8.2 [facility] Comment on above: Performed By: #### C MP ####[place] [address]otfus[address] [place], [place] [address]Dr. Farhat Leal Sodium [Moles/Vol] 142 mmol/L Normal 136-145 [facility] Comment on above: Performed By: #### C MP ####[place] Riiogwaknp67[address] [place], [place] [address]Dr. Farhat Leal Urea nitrogen [Mass/Vol] 49.0 mg/dL Critically high 7.0-18.0 [facility] Comment on above: Performed By: #### C MP ####[place] Nflvkqhsnl[address] [place], [place] [address]Dr. Farhat Leal Urea nitrogen/Creatinine [Mass ratio] 28.8 mg/mg Normal [facility] Comment on above: Performed By: #### C MP ####[place] W[address]awaqdap67[address] [place], [place] [address]Dr. Farhat Leal PROTIMEon 07-03-2022 INR Coag (PPP) [Relative time] 2.23 {INR} Normal [facility] [place] Comment on above: Performed By: #### P T ####[place] Fxmcgurdza05[address] [place], [place] [address]Dr. Farhat Leal INR GUIDELINES SEE BELOW Normal [facility] Comment on above: Result Comment: MALINA RED INR: 2.0 - 3.0 CONDITIONS NOT LISTED BELOW 2.5 - 3.5 FOR PROSTHETIC HEART VALVE REPLACEMENT 2.5 - 3.5 RECURRENT THROMBOSIS Performed By: #### P T ####[place] Q[address]asmbzzx6[address] [place], [place] [address]Dr. Farhat Leal PT Coag (PPP) [Time] 22.6 s Critically high 9.0-11.6 [facility] [place] Comment on above: Performed By: #### P T ####[place] V[address]tyrdqyq[address] [place], [place] [address]Dr. Farhat Leal FK506 (TACROLIMUS) WHOLE BLO ODon 06-29-2022 Tacrolimus (FK506), Blood 12.2 ng/mL Normal 2.0-20.0 [facility] Comment on above: Result Comment: Trou gh (immediately following transplant) 15.0 . Trough (steady state, 2 weeks or more after transplant): 3.0 - 8.0 . Performed by LC-MS/MS technology. Performed By: #### F K506T ####[place] Rptdsxzwzt7[address] [place], [place] [address]Dr. Farhat Leal CBC AUTO DIFFon 06-26-2022 BASO # 0.0 103/ul Normal 0.0-0.1 [facility] [place] Comment on above: Performed By: #### C BC ####[place] G[address]abczmjty74[address] [place], [place] [address]Dr. Farhat Leal Basophils/100 WBC (Bld) 0.5 % Normal 0.2-2.0 [facility] Comment on above: Performed By: #### C BC ####[place] [address]ftteyh[address] [place] [address]Dr. Farhat Leal EO # 0.3 103/ul Normal 0.0-0.7 [facility] [place] Comment on above: Performed By: #### C BC ####[place] Bflgypcmgf54[address] [place] [address]Dr. Farhat Leal Eosinophils/100 WBC (Bld) 4.3 % Normal 0.9-7.0 [facility] [place] Comment on above: Performed By: #### C BC ####[place] Ntgsvdeihv9[address] [place], [place] [address]Dr. Farhat Leal Erythrocyte distribution width (RBC) [Ratio] 14.1 % Normal 11.0-15.0 [facility] [place] Comment on above: Performed By: #### C BC ####[place] Ky[address]rjsijz[address] [place], [place] [address]Dr. Farhat Leal Hematocrit (Bld) [Volume fraction] 35.4 % Critically low 42.0-54.0 [facility] [place] Comment on above: Performed By: #### C BC ####[place] Upluoupfoj[address] [place], [place] [address]Dr. Farhat Leal Hemoglobin (Bld) [Mass/Vol] 11.8 g/dL Critically low 14.0-18.0 [facility] [place] Comment on above: Performed By: #### C BC ####[place] Ikcsvpfxgi8914[address] [place], [place] [address]Dr. Farhat Leal IG # 0.02 10e3/ul Normal 0.00-0.03 [facility] [place] Comment on above: Performed By: #### C BC ####[place] [address]urhqqyg[address] [place] [address]Dr. Farhat Leal IG % 0.3 % Normal 0.0-0.5 [facility] [place] Comment on above: Performed By: #### C BC ####[place] [address]rdzsef25[address] [place], [place] [address]Dr. Farhat Leal LYMPH # 2.4 103/ul Normal 1.2-3.8 [facility] [place] Comment on above: Performed By: #### C BC ####[place] [address]ykokv[address] [place] [phone]. Farhat Elvis Lymphocytes/100 WBC (Bld) 40.4 % Normal 20.5-60.0 [facility] [place] Comment on above: Performed By: #### C BC ####[place] M[address]bnodxe7[address] [place] [phone]. Farhat Elvis MANUAL DIFF REQ NO Normal [facility] Comment on above: Performed By: #### C BC ####[place] Gmsyumjbtv12[address] [place] [phone]. Farhat Elvis MCH (RBC) [Entitic mass] 31.0 pg Normal 25.9-34.0 [facility] [place] Comment on above: Performed By: #### C BC ####[place] Q[address]ykkvikit8[address] [place] [address]Dr. Farhat Elvis MCHC (RBC) [Mass/Vol] 33.3 g/dL Normal 29.9-35.2 [facility] [place] Comment on above: Performed By: #### C BC ####[place] [address]vlmwm20[address] [place] [address]Dr. Madelynlorri Leal MCV (RBC) [Entitic vol] 92.9 fL Normal 80.0-94.0 [facility] [place] Comment on above: Performed By: #### C BC ####[place] Skrwbmcnbp11[address] [place] [address]Dr. Farhat Leal MONO # 0.7 103/ul Normal 0.3-0.8 [facility] [place] Comment on above: Performed By: #### C BC ####[place] Fi[address]mhlgyk9[address] [place] [address]Dr. Madelynlorri Leal Monocytes/100 WBC (Bld) 11.1 % Normal 1.7-12.0 [facility] [place] Comment on above: Performed By: #### C BC ####[place] C[address]cpiashu[address] [place], [place] [address]Dr. Farhat Leal NEUT # 2.6 103/ul Normal 1.4-6.5 [facility] [place] Comment on above: Performed By: #### C BC ####[place] Qqubhpyvrq2588 [place] [address]Dr. Farhat Leal Neutrophils/100 WBC (Bld) 43.4 % Normal 43.0-75.0 [facility] [place] Comment on above: Performed By: #### C BC ####[place] Irrltbydjw9454 [place] [address]Dr. Farhat Leal Platelet mean volume (Bld) [Entitic vol] 10.4 fL Normal 9.5-13.5 [facility] [place] Comment on above: Performed By: #### C BC ####[place] [address]tvh5[address] [place] [phone]. Farhat Leal PLT 211 103/ul Normal 150-450 [facility] Comment on above: Performed By: #### C BC ####[place] Ldczkrkkvt1175 [place] [address]Dr. Farhat Leal RBC 3.81 106/ul Critically low 4.70-6.10 [facility] Comment on above: Performed By: #### C BC ####[place] Bqvauogfvk[address] [place] [address]Dr. Madelynlorri Leal WBC 6.0 103/ul Normal 4.0-11.0 [facility] Comment on above: Performed By: #### C BC ####[place] [address]yntmbzh[address] [place], [place] [address]Dr. Farhat Leal PROF 14(COMP METB)on 023 Albumin [Mass/Vol] 2.6 g/dL Critically low 3.4-5.0 [facility] Comment on above: Performed By: #### C MP ####[place] Ugkdxtyjdg9202 [place] [phone]. Farhat Leal Albumin/Globulin [Mass ratio] 0.8 {ratio} Normal [facility] [place] Comment on above: Performed By: #### C MP ####[place] Guwxofqvyv64[address] [place] [address]Dr. Farhat Elvis ALP [Catalytic activity/Vol] 64 U/L Normal 46-116 [facility] [place] Comment on above: Performed By: #### C MP ####[place] Lgzlkpcjtv49[address] [place] [address]Dr. Farhat Leal ALT [Catalytic activity/Vol] 18 U/L Normal 16-63 [facility] [place] Comment on above: Performed By: #### C MP ####[place] Azeojrxqdb7053 [place] [address]Dr. Farhat Leal Anion gap [Moles/Vol] 10.2 mmol/L Normal [facility] Comment on above: Performed By: #### C MP ####[place] Gzindbusaq32[address] [place], [place] [address]Dr. Farhat Leal AST [Catalytic activity/Vol] 16 U/L Normal 15-37 [facility] Comment on above: Performed By: #### C MP ####[place] Mmdoxbqkva33[address] [place], [place] [address]Dr. Farhat Leal Bilirubin [Mass/Vol] 0.6 mg/dL Normal 0.2-1.0 [facility] Comment on above: Performed By: #### C MP ####[place] Rixuhvxpvs63[address] [place], [place] [address]Dr. Farhat Leal Calcium [Mass/Vol] 8.5 mg/dL Normal 8.5-10.1 [facility] Comment on above: Performed By: #### C MP ####[place] Rdmpiglkof7824[address] [place], [place] [address]Dr. Farhat Leal Chloride [Moles/Vol] 106 mmol/L Normal 98-107 [facility] [place] Comment on above: Performed By: #### C MP ####[place] Agobsrerye2[address] [place], [place] [address]Dr. Farhat Leal CO2 [Moles/Vol] 29.8 mmol/L Normal 21.0-32.0 [facility] Comment on above: Performed By: #### C MP ####[place] Spytashhni87[address] [place], [place] [address]Dr. Farhat Leal Creatinine [Mass/Vol] 1.60 mg/dL Critically high 0.70-1.30 [facility] Comment on above: Performed By: #### C MP ####[place] [address]dhtvgzyaf25[address] [place] [address]Dr. Farhat Leal EGFR-AF J[place] 51 mL/min/1.73m2 Critically low >=60 [facility] Comment on above: Performed By: #### C MP ####[place] Vfeonghduf[address] [place] [address]Dr. Farhat Leal EGFR-NON AF [place] 42 mL/min/1.73m2 Critically low >=60 [facility] Comment on above: Performed By: #### C MP ####[place] Gyupiqbcox7414 [place] [address]Dr. Farhat Leal Globulin (S) [Mass/Vol] 3.4 g/dL Normal [facility] Comment on above: Performed By: #### C MP ####[place] Zarqcsdzhg[address] [place], [place] [address]Dr. Farhat Leal Glucose [Mass/Vol] 178 mg/dL Critically high 74-106 T [facility] Comment on above: Performed By: #### C MP ####[place] Uuktactyjz[address] [place], [place] [address]Dr. Farhat Leal Potassium [Moles/Vol] 4.0 mmol/L Normal 3.5-5.1 [facility] Comment on above: Performed By: #### C MP ####[place] Ovxnvsnevl[address] [place], [place] [address]Dr. Farhat Leal Protein [Mass/Vol] 6.0 g/dL Critically low 6.4-8.2 [facility] Comment on above: Performed By: #### C MP ####[place] Hieoffmuit78[address] [place] [address]Dr. Farhat Leal Sodium [Moles/Vol] 142 mmol/L Normal 136-145 [facility] Comment on above: Performed By: #### C MP ####[place] Vmclridefr[address] [place], [place] [address]Dr. Farhat Leal Urea nitrogen [Mass/Vol] 49.0 mg/dL Critically high 7.0-18.0 [facility] Comment on above: Performed By: #### C MP ####[place] Imbkecqzur[address] [place], [place] [address]Dr. Farhat Leal Urea nitrogen/Creatinine [Mass ratio] 30.6 mg/mg Normal [facility] [place] Comment on above: Performed By: #### C MP ####[place] S[address]hkxotu[address] [place], [place] [address]Dr. Farhat Elvis PROTIMEon 06-26-2022 INR Coag (PPP) [Relative time] 1.77 {INR} Normal [facility] [place] Comment on above: Performed By: #### P T ####[place] J[address]dufpjdsv7[address] [place], [place] [address]Dr. Farhat Leal INR GUIDELINES SEE BELOW Normal [facility] Comment on above: Result Comment: MALINA RED INR: 2.0 - 3.0 CONDITIONS NOT LISTED BELOW 2.5 - 3.5 FOR PROSTHETIC HEART VALVE REPLACEMENT 2.5 - 3.5 RECURRENT THROMBOSIS Performed By: #### P T ####[place] Caslbhrttt[address] [place], [place] [address]Dr. Farhat Leal PT Coag (PPP) [Time] 18.2 s Critically high 9.0-11.6 [facility] [place] Comment on above: Performed By: #### P T ####[place] [address] [place] [address]. Farhat Leal FK506 (TACROLIMUS) WHOLE BLO ODon 06-22-2022 Tacrolimus (FK506), Blood 24.5 ng/mL Invalid Interpretation Code 2.0-20.0 [facility] [place] Comment on above: Result Comment: Trou gh (immediately following transplant) 15.0 . Trough (steady state, 2 weeks or more after transplant): 3.0 - 8.0 . Performed by LC-MS/MS technology.Patient drug level exceeds published reference range. Evaluateclinically for signs of potential toxicity. Performed By: #### F K506T ####[place] Jjilnsrgqc[address] [place], [place] [address]Dr. Farhat Leal CBC AUTO DIFFon 06-19-2022 BASO # 0.1 103/ul Normal 0.0-0.1 [facility] [place] Comment on above: Performed By: #### C BC ####[place] Stwqccqflv2572 [place] [phone]. Farhat Leal Basophils/100 WBC (Bld) 0.7 % Normal 0.2-2.0 [facility] [place] Comment on above: Performed By: #### C BC ####[place] Nwpghxqbek0720 [place] [phone]. Farhat Leal EO # 0.4 103/ul Normal 0.0-0.7 [facility] [place] Comment on above: Performed By: #### C BC ####[place] Zhmoqkhgvl6[address] [place], [place] [address]Dr. Farhat Leal Eosinophils/100 WBC (Bld) 5.7 % Normal 0.9-7.0 [facility] [place] Comment on above: Performed By: #### C BC ####[place] N[address]ffvyfulz[address] [place], [place] [address]Dr. Farhat Leal Erythrocyte distribution width (RBC) [Ratio] 14.5 % Normal 11.0-15.0 [facility] [place] Comment on above: Performed By: #### C BC ####[place] H[address]seypaktd[address] [place], [place] [address]Dr. Farhat Leal Hematocrit (Bld) [Volume fraction] 34.1 % Critically low 42.0-54.0 [facility] [place] Comment on above: Performed By: #### C BC ####[place] X[address]ebqx[address] [place], [place] [id number]. Farhat Leal Hemoglobin (Bld) [Mass/Vol] 11.3 g/dL Critically low 14.0-18.0 [facility] [place] Comment on above: Performed By: #### C BC ####[place] Imjvxkiuaz[address] [place], [place] [address]Dr. Farhat Leal IG # 0.02 10e3/ul Normal 0.00-0.03 [facility] [place] Comment on above: Performed By: #### C BC ####[place] Eb[address]vdkfal[address] [place], [place] [address]Dr. Farhat Leal IG % 0.3 % Normal 0.0-0.5 [facility] [place] Comment on above: Performed By: #### C BC ####[place] Oeiwamjkno5[address] [place] [phone]. Farhat Leal LYMPH # 3.1 103/ul Normal 1.2-3.8 [facility] [place] Comment on above: Performed By: #### C BC ####[place] Eptwqoqlbu6219 [place] [phone]. Farhat Leal Lymphocytes/100 WBC (Bld) 40.6 % Normal 20.5-60.0 [facility] [place] Comment on above: Performed By: #### C BC ####[place] Rhsdlhdjmk3165 [place] [phone]. Farhat Elvis MANUAL DIFF REQ NO Normal [facility] Comment on above: Performed By: #### C BC ####[place] Rbljpkstjf6083 [place] [phone]. Farhat Elvis MCH (RBC) [Entitic mass] 30.6 pg Normal 25.9-34.0 [facility] [place] Comment on above: Performed By: #### C BC ####[place] Zhzgqyxxyf1668 [place] [phone]. Farhat Leal MCHC (RBC) [Mass/Vol] 33.1 g/dL Normal 29.9-35.2 [facility] [place] Comment on above: Performed By: #### C BC ####[place] Mxjxcmjlaj5412 [place] [phone]. Farhat Elvis MCV (RBC) [Entitic vol] 92.4 fL Normal 80.0-94.0 [facility] [place] Comment on above: Performed By: #### C BC ####[place] Nurycyqgwq1399 [place] [phone]. Farhat Elvis MONO # 0.8 103/ul Normal 0.3-0.8 [facility] [place] Comment on above: Performed By: #### C BC ####[place] Nbwxmvvtpe1195 [place] [phone]. Farhat Elvis Monocytes/100 WBC (Bld) 10.6 % Normal 1.7-12.0 [facility] [place] Comment on above: Performed By: #### C BC ####[place] Ysiuhzhfxz0204 [place] [phone]. Farhat Leal NEUT # 3.2 103/ul Normal 1.4-6.5 [facility] [place] Comment on above: Performed By: #### C BC ####[place] Taszjxufux2077 [place] [phone]. Farhat Leal Neutrophils/100 WBC (Bld) 42.1 % Critically low 43.0-75.0 [facility] Comment on above: Performed By: #### C BC ####[place] Crwnhcxtax7539 [place] [phone]. Farhat Leal Platelet mean volume (Bld) [Entitic vol] 10.6 fL Normal 9.5-13.5 [facility] [place] Comment on above: Performed By: #### C BC ####[place] Sdhgxwjmto5425 [place] [phone]. Madelynlorri Elvis PLT 187 103/ul Normal 150-450 [facility] [place] Comment on above: Performed By: #### C BC ####[place] Mtddimypfj6636 [place] [phone]. Farhat Elvis RBC 3.69 106/ul Critically low 4.70-6.10 [facility] Comment on above: Performed By: #### C BC ####[place] Igaxqdpepn9487 [place] [phone]. Farhat Leal WBC 7.7 103/ul Normal 4.0-11.0 [facility] Comment on above: Performed By: #### C BC ####[place] Ohswcoedcx9[address] [place] [address]Dr. Farhat Leal PROF 14(COMP METB)on 023 Albumin [Mass/Vol] 2.5 g/dL Critically low 3.4-5.0 [facility] Comment on above: Performed By: #### C MP ####[place] Finhhqwvxf1020 [place] [phone]. Farhat Leal Albumin/Globulin [Mass ratio] 0.8 {ratio} Normal [facility] [place] Comment on above: Performed By: #### C MP ####[place] Ecqeiyjenp6921 [place] [phone]. Farhat Leal ALP [Catalytic activity/Vol] 60 U/L Normal 46-116 [facility] [place] Comment on above: Performed By: #### C MP ####[place] Gtddrzcxym2053 [place] [address]Dr. Farhat Leal ALT [Catalytic activity/Vol] 16 U/L Normal 16-63 [facility] [place] Comment on above: Performed By: #### C MP ####[place] Kelnppmkwf7978 [place] [address]Dr. Farhat Leal Anion gap [Moles/Vol] 9.1 mmol/L Normal [facility] Comment on above: Performed By: #### C MP ####[place] Slwmrsmabx2781 [place] [address]Dr. Farhat Leal AST [Catalytic activity/Vol] 31 U/L Normal 15-37 [facility] [place] Comment on above: Performed By: #### C MP ####[place] Ouiagznxzp[address] [place], [place] [address]Dr. Farhat Leal Bilirubin [Mass/Vol] 0.3 mg/dL Normal 0.2-1.0 [facility] [place] Comment on above: Performed By: #### C MP ####[place] Kdzafwfihg16[address] [place], [place] [address]Dr. Farhat Leal Calcium [Mass/Vol] 8.2 mg/dL Critically low 8.5-10.1 [facility] Comment on above: Performed By: #### C MP ####[place] Dmrmmcfrch8834 [place] [address]Dr. Farhat Leal Chloride [Moles/Vol] 106 mmol/L Normal 98-107 [facility] [place] Comment on above: Performed By: #### C MP ####[place] Puesvttljj49[address] [place], [place] [address]Dr. Farhat Leal CO2 [Moles/Vol] 27.0 mmol/L Normal 21.0-32.0 [facility] Comment on above: Performed By: #### C MP ####[place] Zuwwdvnmwb5058 [place] [address]Dr. Farhat Leal Creatinine [Mass/Vol] 1.51 mg/dL Critically high 0.70-1.30 [facility] Comment on above: Performed By: #### C MP ####[place] Flrjzteept1738 [place] [address]Dr. Farhat Leal EGFR-AF [place] 55 mL/min/1.73m2 Critically low >=60 [facility] Comment on above: Performed By: #### C MP ####[place] Qxxhvrfikv1115 [place] [address]Dr. Farhat Leal EGFR-NON AF [place] 45 mL/min/1.73m2 Critically low >=60 [facility] Comment on above: Performed By: #### C MP ####[place] Ntmddgxcik[address] [place], [place] [address]Dr. Farhat Leal Globulin (S) [Mass/Vol] 3.2 g/dL Normal [facility] Comment on above: Performed By: #### C MP ####[place] Ughzoowbzz8378[address] [place], [place] [address]Dr. Farhat Leal Glucose [Mass/Vol] 165 mg/dL Critically high 74-106 [facility] Comment on above: Performed By: #### C MP ####[place] Chwttdljlv2086 [place] [address]Dr. Farhat Leal Potassium [Moles/Vol] 4.1 mmol/L Normal 3.5-5.1 [facility] Comment on above: Performed By: #### C MP ####[place] Afuwrvdjgw1572 [place] [address]Dr. Farhat Leal Protein [Mass/Vol] 5.7 g/dL Critically low 6.4-8.2 [facility] Comment on above: Performed By: #### C MP ####[place] Jtaooyhhdt[address] [place], [place] [address]Dr. Farhat Leal Sodium [Moles/Vol] 138 mmol/L Normal 136-145 [facility] Comment on above: Performed By: #### C MP ####[place] Flpzaqtvkk8047[address] [place], [place] [address]Dr. Farhat Leal Urea nitrogen [Mass/Vol] 51.0 mg/dL Critically high 7.0-18.0 [facility] [place] Comment on above: Performed By: #### C MP ####[place] Uzyemugpnc3654[address] [place], [place] [address]Dr. Farhat Leal Urea nitrogen/Creatinine [Mass ratio] 33.8 mg/mg Normal [facility] [place] Comment on above: Performed By: #### C MP ####[place] Kfotrlikfx1294[address] [place], [place] [address]Dr. Farhat Leal FK506 (TACROLIMUS) WHOLE BLO ODon 06-15-2022 Tacrolimus (FK506), Blood 16.4 ng/mL Normal 2.0-20.0 [facility] [place] Comment on above: Result Comment: Trou gh (immediately following transplant) 15.0 . Trough (steady state, 2 weeks or more after transplant): 3.0 - 8.0 . Performed by LC-MS/MS technology. Performed By: #### F K506T ####[place] Hrlrcrhgsm3[address] [place], [place] [address]Dr. Farhat Leal PROTIMEon 06-15-2022 INR Coag (PPP) [Relative time] 1.64 {INR} Normal [facility] Comment on above: Performed By: #### P T ####[place] Teakgwveje[address] [place], [place] [address]DrSkylar Leal INR GUIDELINES SEE BELOW Normal [facility] Comment on above: Result Comment: MALINA RED INR: 2.0 - 3.0 CONDITIONS NOT LISTED BELOW 2.5 - 3.5 FOR PROSTHETIC HEART VALVE REPLACEMENT 2.5 - 3.5 RECURRENT THROMBOSIS Performed By: #### P T ####[place] Swklrskjdu24[address] [place], [place] [address]DrSkylar Leal PT Coag (PPP) [Time] 16.9 s Critically high 9.0-11.6 [facility] Comment on above: Performed By: #### P T ####[place] Ofiuvxlvwy8942[address] [place], [place] [address]DrSkylar Leal CBC AUTO DIFFon 06-12-2022 BASO # 0.0 103/ul Normal 0.0-0.1 [facility] Comment on above: Performed By: #### C BC ####[place] Jjgemilnoe8471 [place] [address]Dr. Farhat Leal Basophils/100 WBC (Bld) 0.4 % Normal 0.2-2.0 [facility] Comment on above: Performed By: #### C BC ####[place] Zcbfmcwatz4[address] [place], [place] [address]Dr. Farhat Leal EO # 0.4 103/ul Normal 0.0-0.7 [facility] [place] Comment on above: Performed By: #### C BC ####[place] Ttycssgwsc237[address] [place], [place] [address]Dr. Farhat Leal Eosinophils/100 WBC (Bld) 5.4 % Normal 0.9-7.0 [facility] Comment on above: Performed By: #### C BC ####[place] Opsiirhkpr9084[address] [place], [place] [address]Dr. Farhat Leal Erythrocyte distribution width (RBC) [Ratio] 14.7 % Normal 11.0-15.0 [facility] Comment on above: Performed By: #### C BC ####[place] Zncnzvtjsq3425[address] [place], [place] [address]Dr. Farhat Leal Hematocrit (Bld) [Volume fraction] 34.8 % Critically low 42.0-54.0 [facility] Comment on above: Performed By: #### C BC ####[place] Vmbtsyrwax70[address] [place], [place] [address]Dr. Farhat Leal Hemoglobin (Bld) [Mass/Vol] 11.7 g/dL Critically low 14.0-18.0 [facility] Comment on above: Performed By: #### C BC ####[place] Grkryaunue77[address] [place], [place] [address]Dr. Farhat Leal IG # 0.02 10e3/ul Normal 0.00-0.03 [facility] [place] Comment on above: Performed By: #### C BC ####[place] Nmmnzcfazd8775[address] [place], [place] [address]Dr. Farhat Leal IG % 0.3 % Normal 0.0-0.5 [facility] Comment on above: Performed By: #### C BC ####[place] Xqyevdqknt5925 [place] [address]DrSkylar Leal LYMPH # 2.5 103/ul Normal 1.2-3.8 [facility] [place] Comment on above: Performed By: #### C BC ####[place] Oanykmyojx7007 [place] [address]Dr. Farhat Leal Lymphocytes/100 WBC (Bld) 36.8 % Normal 20.5-60.0 [facility] [place] Comment on above: Performed By: #### C BC ####[place] X[address]xcnevuhp[address] [place], [place] [address]DrSkylar Leal MANUAL DIFF REQ NO Normal [facility] Comment on above: Performed By: #### C BC ####[place] Vqnxqsqsbl9030 [place] [address]Dr. Farhat Leal MCH (RBC) [Entitic mass] 30.9 pg Normal 25.9-34.0 [facility] Comment on above: Performed By: #### C BC ####[place] Qjguqmbseg54[address] [place], [place] [address]Dr. Madelynlorri Leal MCHC (RBC) [Mass/Vol] 33.6 g/dL Normal 29.9-35.2 [facility] [place] Comment on above: Performed By: #### C BC ####[place] Cktnrlvxze75[address] [place], [place] [address]DrSkylar Leal MCV (RBC) [Entitic vol] 91.8 fL Normal 80.0-94.0 [facility] Comment on above: Performed By: #### C BC ####[place] Xqznseqzbf75[address] [place], [place] [address]DrSkylar Leal MONO # 0.8 103/ul Normal 0.3-0.8 [facility] Comment on above: Performed By: #### C BC ####[place] Itbwptrduw[address] [place], [place] [address]DrSkylar Leal Monocytes/100 WBC (Bld) 11.9 % Normal 1.7-12.0 [facility] Comment on above: Performed By: #### C BC ####[place] Ykpsuefuun7705 [place] [address]DrSkylar Farhat Leal NEUT # 3.1 103/ul Normal 1.4-6.5 [facility] Comment on above: Performed By: #### C BC ####[place] Dfkqehrltr8004 [place] [address]DrSkylar Farhat Leal Neutrophils/100 WBC (Bld) 45.2 % Normal 43.0-75.0 [facility] Comment on above: Performed By: #### C BC ####[place] Ayxusuyess[address] [place], [place] [address]DrSkylar Farhat Leal Platelet mean volume (Bld) [Entitic vol] 10.5 fL Normal 9.5-13.5 [facility] Comment on above: Performed By: #### C BC ####[facility] Emm[address] [place], [place] [address]Dr. Farhat Leal PLT 175 103/ul Normal 150-450 [facility] Comment on above: Performed By: #### C BC ####[facility] Cdlnyebbyq[address] [place], [place] [address]DrSkylar Farhat Leal RBC 3.79 106/ul Critically low 4.70-6.10 [facility] Comment on above: Performed By: #### C BC ####[facility] [address] [place], [place] [id number] Farhat Leal WBC 6.8 103/ul Normal 4.0-11.0 [facility] Comment on above: Performed By: #### C BC ####[facility] Hgubbnabbq[address] [place], [place] [address]DrSkylar Farhat Leal MAGNESIUMon 06-12-2022 Magnesium [Mass/Vol] 1.6 mg/dL Critically low 1.8-2.4 [facility] Comment on above: Performed By: #### C MP, MG, PHOS ####[facility] Xlexkyzkmb[address] [place], [place] [address]Dr. Farhat Leal PHOSPHORUSon 06-12-2022 Phosphate [Mass/Vol] 3.8 mg/dL Normal 2.6-4.7 [facility] Comment on above: Performed By: #### C MP, MG, PHOS ####[facility] Yskxahgqiy[address] [place] [address]Dr. Farhat Leal PROF 14(COMP METB)on 023 Albumin [Mass/Vol] 2.6 g/dL Critically low 3.4-5.0 [facility] Comment on above: Performed By: #### C MP, MG, PHOS ####[facility] [address]ftorp[address] [place] [address]Dr. Farhat Leal Albumin/Globulin [Mass ratio] 0.8 {ratio} Normal [facility] Comment on above: Performed By: #### C MP, MG, PHOS ####[facility] Jtcbbcvtyd33[address] [place] [address]Dr. Farhat Leal ALP [Catalytic activity/Vol] 64 U/L Normal 46-116 [facility] Comment on above: Performed By: #### C MP, MG, PHOS ####[facility] Ltzqwitwhm[address] [place] [address]Dr. Farhat Leal ALT [Catalytic activity/Vol] 18 U/L Normal 16-63 [facility] Comment on above: Performed By: #### C MP, MG, PHOS ####[facility] Veatbekeoz[address] [place] [address]Dr. Farhat Leal Anion gap [Moles/Vol] 12.9 mmol/L Normal [facility] Comment on above: Performed By: #### C MP, MG, PHOS ####[facility] Imlqpddgvt9495 [place] [address]Dr. Farhat Leal AST [Catalytic activity/Vol] 18 U/L Normal 15-37 [facility] Comment on above: Performed By: #### C MP, MG, PHOS ####[facility] Cgzxuwbqan2694 [place] [address]Dr. Farhat Leal Bilirubin [Mass/Vol] 0.4 mg/dL Normal 0.2-1.0 [facility] Comment on above: Performed By: #### C MP, MG, PHOS ####[facility] Pgikasqfar4414 [place] [address]Dr. Farhat Leal Calcium [Mass/Vol] 8.7 mg/dL Normal 8.5-10.1 [facility] Comment on above: Performed By: #### C MP, MG, PHOS ####[facility] Yrboncbdgu[address] [place], [place] [address]Dr. Farhat Leal Chloride [Moles/Vol] 105 mmol/L Normal 98-107 [facility] Comment on above: Performed By: #### C MP, MG, PHOS ####[facility] Clsricbduz06[address] [place], [place] [address]Dr. Farhat Leal CO2 [Moles/Vol] 27.9 mmol/L Normal 21.0-32.0 [facility] Comment on above: Performed By: #### C MP, MG, PHOS ####[facility] Whxmrqpwuv32[address] [place], [place] [address]Dr. Farhat Leal Creatinine [Mass/Vol] 1.53 mg/dL Critically high 0.70-1.30 [facility] Comment on above: Performed By: #### C MP, MG, PHOS ####[facility] Fwmmcxsehq9[address] [place], [place] [address]Dr. Farhat Leal EGFR-AF [place] 54 mL/min/1.73m2 Critically low >=60 [facility] Comment on above: Performed By: #### C MP, MG, PHOS ####[facility] Yslgqwbsai[address] [place], [place] [address]Dr. Farhat Leal EGFR-NON AF [place] 44 mL/min/1.73m2 Critically low >=60 [facility] Comment on above: Performed By: #### C MP, MG, PHOS ####[facility] Uqmimiwsap7[address] [place] [address]Dr. Farhat Leal Globulin (S) [Mass/Vol] 3.4 g/dL Normal [facility] Comment on above: Performed By: #### C MP, MG, PHOS ####[facility] Fwizargbyp4050 [place] [address]Dr. Farhat Leal Glucose [Mass/Vol] 179 mg/dL Critically high 74-106 T [facility] Comment on above: Performed By: #### C MP, MG, PHOS ####[facility] Fvvxidmfau7564 [place] [address]Dr. Farhat Leal Potassium [Moles/Vol] 3.8 mmol/L Normal 3.5-5.1 [facility] Comment on above: Performed By: #### C MP, MG, PHOS ####[facility] Xwklxfrfha9644 [place] [address]Dr. Farhat Leal Protein [Mass/Vol] 6.0 g/dL Critically low 6.4-8.2 [facility] Comment on above: Performed By: #### C MP, MG, PHOS ####[facility] Nlsshlzfjb5650 [place] [address]Dr. Farhat Leal Sodium [Moles/Vol] 142 mmol/L Normal 136-145 [facility] Comment on above: Performed By: #### C MP, MG, PHOS ####[facility] Hrbslbulck2132 [place] [address]Dr. Farhat Leal Urea nitrogen [Mass/Vol] 56.0 mg/dL Critically high 7.0-18.0 [facility] Comment on above: Performed By: #### C MP, MG, PHOS ####[facility] Hhdfyhshgn9201 [place] [address]Dr. Farhat Leal Urea nitrogen/Creatinine [Mass ratio] 36.6 mg/mg Normal [facility] Comment on above: Performed By: #### C MP, MG, PHOS ####[facility] Ocegtchogv[address] [place] [address]Dr. Farhat Elvis FK506 (TACROLIMUS) WHOLE BLO ODon 06-08-2022 Tacrolimus (FK506), Blood 13.2 ng/mL Normal 2.0-20.0 [facility] Comment on above: Result Comment: Trou gh (immediately following transplant) 15.0 . Trough (steady state, 2 weeks or more after transplant): 3.0 - 8.0 . Performed by LC-MS/MS technology. Performed By: #### F K506T ####[facility] Z[address]mwlsgye[address] [place], [place] [address]Dr. Farhat Leal CBC AUTO DIFFon 06-05-2022 BASO # 0.1 103/ul Normal 0.0-0.1 [facility] Comment on above: Performed By: #### C BC ####[facility] R[address]ewifajeo[address] [place], [place] [address]Dr. Farhat Leal Basophils/100 WBC (Bld) 0.8 % Normal 0.2-2.0 [facility] Comment on above: Performed By: #### C BC ####[facility] Pdfwvvxbuf[address] [place], [place] [address]Dr. Farhat Leal EO # 0.3 103/ul Normal 0.0-0.7 [facility] Comment on above: Performed By: #### C BC ####[facility] Nylplkapbo[address] [place], [place] [address]Dr. Madelynlorri Leal Eosinophils/100 WBC (Bld) 4.7 % Normal 0.9-7.0 [facility] Comment on above: Performed By: #### C BC ####[facility] Nbuppibhzz[address] [place], [place] [address]Dr. Farhat Leal Erythrocyte distribution width (RBC) [Ratio] 15.1 % Critically high 11.0-15.0 [facility] Comment on above: Performed By: #### C BC ####[facility] Kuq[address]ytuesw[address] [place], [place] [address]Dr. Farhat Leal Hematocrit (Bld) [Volume fraction] 35.5 % Critically low 42.0-54.0 [facility] Comment on above: Performed By: #### C BC ####[facility] Tlivhawdqe5[address] [place], [place] [address]Dr. Frahat Leal Hemoglobin (Bld) [Mass/Vol] 11.7 g/dL Critically low 14.0-18.0 [facility] Comment on above: Performed By: #### C BC ####[facility] W[address]osgtenh32[address] [place] [phone]. Madelynlorri Leal IG # 0.01 10e3/ul Normal 0.00-0.03 [facility] Comment on above: Performed By: #### C BC ####[facility] Aaojwmxqiq2438 [place] [address]Dr. Madelynlorri Elvis IG % 0.2 % Normal 0.0-0.5 [facility] Comment on above: Performed By: #### C BC ####[facility] Ibpclmdqoh0459 [place] [address]Dr. Madelynlorri Elvis LYMPH # 2.1 103/ul Normal 1.2-3.8 [facility] Comment on above: Performed By: #### C BC ####[facility] Pkjaekkrmu475[address] [place] [address]Dr. Farhat Leal Lymphocytes/100 WBC (Bld) 34.5 % Normal 20.5-60.0 [facility] Comment on above: Performed By: #### C BC ####[facility] Eytuckrmhz93[address] [place] [address]Dr. Farhat Leal MANUAL DIFF REQ NO Normal [facility] Comment on above: Performed By: #### C BC ####[facility] Pgyotqqtok1357 [place] [address]Dr. Farhat Elvis MCH (RBC) [Entitic mass] 30.6 pg Normal 25.9-34.0 [facility] Comment on above: Performed By: #### C BC ####[facility] Xrapciguho8725 [place] [address]Dr. Farhat Elvis MCHC (RBC) [Mass/Vol] 33.0 g/dL Normal 29.9-35.2 [facility] Comment on above: Performed By: #### C BC ####[facility] Fffxpfpynk9715 [place] [address]Dr. Farhat Elvis MCV (RBC) [Entitic vol] 92.9 fL Normal 80.0-94.0 [facility] Comment on above: Performed By: #### C BC ####[facility] Panzzpvhdw6872 [place] [phone]. Farhat Leal MONO # 0.7 103/ul Normal 0.3-0.8 [facility] Comment on above: Performed By: #### C BC ####[facility] Xyaausbjiy7165 [place] [phone]. Farhat Leal Monocytes/100 WBC (Bld) 11.4 % Normal 1.7-12.0 [facility] Comment on above: Performed By: #### C BC ####[facility] Iieznjsjpz4561 [place] [phone]. Farhat Leal NEUT # 2.9 103/ul Normal 1.4-6.5 [facility] Comment on above: Performed By: #### C BC ####[facility] [address]fq[address]qff[address] [place], [place] [address]Dr. Farhat Leal Neutrophils/100 WBC (Bld) 48.4 % Normal 43.0-75.0 [facility] Comment on above: Performed By: #### C BC ####[facility] Vbe[address]ibbvxb[address] [place], [place] [address]Dr. Farhat Leal Platelet mean volume (Bld) [Entitic vol] 10.7 fL Normal 9.5-13.5 [facility] Comment on above: Performed By: #### C BC ####[facility] [address]vuxbs[address] [place], [place] [address]Dr. Farhat Leal PLT 185 103/ul Normal 150-450 [facility] Comment on above: Performed By: #### C BC ####[facility] Wm[address]pgfr[address] [place], [place] [address]Dr. Farhat Leal RBC 3.82 106/ul Critically low 4.70-6.10 [facility] Comment on above: Performed By: #### C BC ####[facility] K[address]iaeuuyj[address] [place], [place] [address]Dr. Farhat Leal WBC 6.0 103/ul Normal 4.0-11.0 [facility] Comment on above: Performed By: #### C BC ####[facility] Ry[address]glyvvs[address] [place], [place] [address]Dr. Farhat Leal MAGNESIUMon 06-05-2022 Magnesium [Mass/Vol] 1.9 mg/dL Normal 1.8-2.4 [facility] Comment on above: Performed By: #### P HOS, MG ####[facility] Jrmipmmlci32[address] [place] [address]Dr. Farhat Leal PHOSPHORUSon 06-05-2022 Phosphate [Mass/Vol] 4.4 mg/dL Normal 2.6-4.7 [facility] Comment on above: Performed By: #### P HOS, MG ####[facility] Opjdnmwvdi6201 [place] [address]Dr. Farhat Leal PROTIMEon 06-05-2022 INR Coag (PPP) [Relative time] 2.16 {INR} Normal [facility] Comment on above: Performed By: #### P T ####[facility] Zfyiziyzuj4985 [place] [address]Dr. Farhat Lela INR GUIDELINES SEE BELOW Normal [facility] Comment on above: Result Comment: MALINA RED INR: 2.0 - 3.0 CONDITIONS NOT LISTED BELOW 2.5 - 3.5 FOR PROSTHETIC HEART VALVE REPLACEMENT 2.5 - 3.5 RECURRENT THROMBOSIS Performed By: #### P T ####[facility] Blqgupuugf299[address] [place] [address]Dr. Farhat Leal PT Coag (PPP) [Time] 21.9 s Critically high 9.0-11.6 [facility] Comment on above: Performed By: #### P T ####[facility] Epvnnbzzvc4309 [place] [address]Dr. Farhat Leal FK506 (TACROLIMUS) WHOLE BLO ODon 06-01-2022 Tacrolimus (FK506), Blood 26.4 ng/mL Invalid Interpretation Code 2.0-20.0 [facility] Comment on above: Result Comment: Trou gh (immediately following transplant) 15.0 . Trough (steady state, 2 weeks or more after transplant): 3.0 - 8.0 . Performed by LC-MS/MS technology.Patient drug level exceeds published reference range. Evaluateclinically for signs of potential toxicity. Performed By: #### F K506T ####[facility] Fmqxtvxtne4167 [place] [phone]. Farhat Leal CBC AUTO DIFFon 05-29-2022 BASO # 0.0 103/ul Normal 0.0-0.1 [facility] Comment on above: Performed By: #### C BC ####[facility] Wtivvlyash[address] [place], [place] [address]Dr. Farhat Elvis Basophils/100 WBC (Bld) 0.6 % Normal 0.2-2.0 [facility] Comment on above: Performed By: #### C BC ####[facility] Ewitldgqto[address] [place], [place] [address]Dr. Farhat Leal EO # 0.3 103/ul Normal 0.0-0.7 [facility] Comment on above: Performed By: #### C BC ####[facility] Sscciiagsg[address] [place], [place] [address]Dr. Madelynlorri Leal Eosinophils/100 WBC (Bld) 4.7 % Normal 0.9-7.0 [facility] Comment on above: Performed By: #### C BC ####[facility] Livlnwaohy[address] [place], [place] [address]Dr. Farhat Leal Erythrocyte distribution width (RBC) [Ratio] 15.3 % Critically high 11.0-15.0 [facility] Comment on above: Performed By: #### C BC ####[facility] X[address]azhntop98[address] [place], [place] [address]Dr. Farhat Leal Hematocrit (Bld) [Volume fraction] 36.6 % Critically low 42.0-54.0 [facility] Comment on above: Performed By: #### C BC ####[facility] Jhwvordiym07[address] [place], [place] [address]Dr. Farhat Leal Hemoglobin (Bld) [Mass/Vol] 12.3 g/dL Critically low 14.0-18.0 [facility] Comment on above: Performed By: #### C BC ####[facility] Dwmvkpvvvf[address] [place], [place] [address]Dr. Farhat Leal IG # 0.02 10e3/ul Normal 0.00-0.03 [facility] Comment on above: Performed By: #### C BC ####[facility] Nmksliqtai9463 [place] [address]Dr. Madelynlorri Leal IG % 0.3 % Normal 0.0-0.5 [facility] Comment on above: Performed By: #### C BC ####[facility] Caqkywrpht3263 [place] [phone]. Farhat Elvis LYMPH # 2.8 103/ul Normal 1.2-3.8 [facility] Comment on above: Performed By: #### C BC ####[facility] Mpjyrzkfks[address] [place], [place] [address]Dr. Madelynlorri Leal Lymphocytes/100 WBC (Bld) 44.4 % Normal 20.5-60.0 [facility] Comment on above: Performed By: #### C BC ####[facility] Ihwdowlcpt[address] [place], [place] [address]Dr. Farhat Leal MANUAL DIFF REQ NO Normal [facility] Comment on above: Performed By: #### C BC ####[facility] Rlogdannbz6928 [place] [address]Dr. Farhat Elvis MCH (RBC) [Entitic mass] 30.4 pg Normal 25.9-34.0 [facility] Comment on above: Performed By: #### C BC ####[facility] Ddtmuaksqm0994 [place] [address]Dr. Farhat Elvis MCHC (RBC) [Mass/Vol] 33.6 g/dL Normal 29.9-35.2 [facility] Comment on above: Performed By: #### C BC ####[facility] T[address]lznixyk[address] [place], [place] [address]Dr. Farhat Elvis MCV (RBC) [Entitic vol] 90.4 fL Normal 80.0-94.0 [facility] Comment on above: Performed By: #### C BC ####[facility] Fvmrpgldhr[address] [place], [place] [address]Dr. Farhat Leal MONO # 0.7 103/ul Normal 0.3-0.8 [facility] Comment on above: Performed By: #### C BC ####[facility] Kicneklhzr8461 [place] [phone]. Farhat Leal Monocytes/100 WBC (Bld) 10.7 % Normal 1.7-12.0 [facility] Comment on above: Performed By: #### C BC ####[facility] Eusflbmlwj2487 [place] [phone]. Farhat Leal NEUT # 2.5 103/ul Normal 1.4-6.5 [facility] Comment on above: Performed By: #### C BC ####[facility] Zudpdcruov4490 [place] [phone]. Farhat Leal Neutrophils/100 WBC (Bld) 39.3 % Critically low 43.0-75.0 [facility] Comment on above: Performed By: #### C BC ####[facility] Bafrchxopu4035 [place] [address]Dr. Farhat Leal Platelet mean volume (Bld) [Entitic vol] 10.5 fL Normal 9.5-13.5 [facility] Comment on above: Performed By: #### C BC ####[facility] Axrapkfdkg5976 [place] [address]Dr. Farhat Leal PLT 190 103/ul Normal 150-450 [facility] Comment on above: Performed By: #### C BC ####[facility] Gbhgezzxlb1168 [place] [phone]. Farhat Leal RBC 4.05 106/ul Critically low 4.70-6.10 [facility] Comment on above: Performed By: #### C BC ####[facility] Yamxtprsfx7625 [place] [phone]. Farhat Leal WBC 6.4 103/ul Normal 4.0-11.0 [facility] Comment on above: Performed By: #### C BC ####[facility] Jiinhvbwcw0199 [place] [address]DrSkylar Leal PROF 14(COMP METB)on 023 Albumin [Mass/Vol] 2.5 g/dL Critically low 3.4-5.0 [facility] Comment on above: Performed By: #### C MP ####[facility] Rtmuvcwtun5103 [place] [address]Dr. Madelynlorri Elvis Albumin/Globulin [Mass ratio] 0.8 {ratio} Normal [facility] Comment on above: Performed By: #### C MP ####[facility] Mowwcioxun4771 [place] [address]Dr. Farhat Leal ALP [Catalytic activity/Vol] 61 U/L Normal 46-116 [facility] Comment on above: Performed By: #### C MP ####[facility] Tqewjclcgd8822 [place] [address]Dr. Farhat Leal ALT [Catalytic activity/Vol] 16 U/L Normal 16-63 [facility] Comment on above: Performed By: #### C MP ####[facility] Gvewffalwn[address] [place], [place] [address]Dr. Farhat Leal Anion gap [Moles/Vol] 12.3 mmol/L Normal [facility] Comment on above: Performed By: #### C MP ####[facility] Hntyvlmria[address] [place], [place] [address]Dr. Farhat Leal AST [Catalytic activity/Vol] 18 U/L Normal 15-37 [facility] Comment on above: Performed By: #### C MP ####[facility] Jzuvidhslo[address] [place], [place] [address]Dr. Farhat Leal Bilirubin [Mass/Vol] 0.5 mg/dL Normal 0.2-1.0 [facility] Comment on above: Performed By: #### C MP ####[facility] Mbtknietfg[address] [place], [place] [address]Dr. Farhat Leal Calcium [Mass/Vol] 8.6 mg/dL Normal 8.5-10.1 [facility] Comment on above: Performed By: #### C MP ####[facility] Wlyncmpgky[address] [place], [place] [address]Dr. Farhat Leal Chloride [Moles/Vol] 105 mmol/L Normal 98-107 [facility] Comment on above: Performed By: #### C MP ####[facility] Pegjjwvldh8020 [place] [phone]. Farhat Leal CO2 [Moles/Vol] 28.6 mmol/L Normal 21.0-32.0 [facility] Comment on above: Performed By: #### C MP ####[facility] Ddzfmzpygz6711 [place] [phone]. Farhat Leal Creatinine [Mass/Vol] 1.47 mg/dL Critically high 0.70-1.30 [facility] Comment on above: Performed By: #### C MP ####[facility] Jslxjmwvde2193 [place] [phone]. Farhat Leal EGFR-AF [place] 56 mL/min/1.73m2 Critically low >=60 [facility] Comment on above: Performed By: #### C MP ####[facility] Hproqwmawx75[address] [place], [place] [address]Dr. Farhat Elvis EGFR-NON AF [place] 46 mL/min/1.73m2 Critically low >=60 [facility] Comment on above: Performed By: #### C MP ####[facility] Mfinghuftk9908 [place] [address]Dr. Farhat Leal Globulin (S) [Mass/Vol] 3.3 g/dL Normal [facility] Comment on above: Performed By: #### C MP ####[facility] Xzvgikztos8457 [place] [address]Dr. Farhat Leal Glucose [Mass/Vol] 164 mg/dL Critically high 74-106 [facility] Comment on above: Performed By: #### C MP ####[facility] Phrzsncbuw5386 [place] [phone]. Farhat Leal Potassium [Moles/Vol] 3.9 mmol/L Normal 3.5-5.1 [facility] Comment on above: Performed By: #### C MP ####[facility] Bpsvgkybcu98[address] [place], [place] [address]Dr. Farhat Leal Protein [Mass/Vol] 5.8 g/dL Critically low 6.4-8.2 [facility] Comment on above: Performed By: #### C MP ####[facility] Ongtacejnx9805 [place] [address]Dr. Farhat Leal Sodium [Moles/Vol] 142 mmol/L Normal 136-145 [facility] Comment on above: Performed By: #### C MP ####[facility] Aopgeivkcm7640 [place] [address]Dr. Farhat Leal Urea nitrogen [Mass/Vol] 53.0 mg/dL Critically high 7.0-18.0 [facility] Comment on above: Performed By: #### C MP ####[facility] Qxgziweimo[address] [place], [place] [address]Dr. Farhat Leal Urea nitrogen/Creatinine [Mass ratio] 36.1 mg/mg Normal [facility] Comment on above: Performed By: #### C MP ####[facility] Xvqzrjlzhe5916[address] [place], [place] [address]Dr. Farhat Leal PROTIMEon 05-29-2022 INR Coag (PPP) [Relative time] 2.41 {INR} Normal [facility] Comment on above: Performed By: #### P T ####[facility] Krdjpibnml[address] [place], [place] [address]Dr. Farhat Leal INR GUIDELINES SEE BELOW Normal [facility] Comment on above: Result Comment: MALINA RED INR: 2.0 - 3.0 CONDITIONS NOT LISTED BELOW 2.5 - 3.5 FOR PROSTHETIC HEART VALVE REPLACEMENT 2.5 - 3.5 RECURRENT THROMBOSIS Performed By: #### P T ####[facility] Xzrnktxtne[address] [place], [place] [address]Dr. aFrhat Leal PT Coag (PPP) [Time] 24.3 s Critically high 9.0-11.6 [facility] Comment on above: Performed By: #### P T ####[facility] Trrdvaxesy32[address] [place], [place] [address]Dr. Farhat Leal FK506 (TACROLIMUS) WHOLE BLO ODon 05-25-2022 Tacrolimus (FK506), Blood 5.1 ng/mL Normal 2.0-20.0 [facility] Comment on above: Result Comment: Trou gh (immediately following transplant) 15.0 . Trough (steady state, 2 weeks or more after transplant): 3.0 - 8.0 . Performed by LC-MS/MS technology. Performed By: #### F K506T ####[facility] Gxocognkmv9392 [place] [address]Dr. Farhat Leal CBC AUTO DIFFon 05-22-2022 BASO # 0.0 103/ul Normal 0.0-0.1 [facility] Comment on above: Performed By: #### C BC ####[facility] Vdxutmgzok5019[address] [place], [place] [address]Dr. Madelynlorri Leal Basophils/100 WBC (Bld) 0.5 % Normal 0.2-2.0 [facility] Comment on above: Performed By: #### C BC ####[facility] Ncspxutuvc04[address] [place], [place] [address]Dr. Farhat Leal EO # 0.2 103/ul Normal 0.0-0.7 [facility] Comment on above: Performed By: #### C BC ####[facility] Doivicdsqn0[address] [place], [place] [address]Dr. Madelynlorri Leal Eosinophils/100 WBC (Bld) 4.0 % Normal 0.9-7.0 [facility] Comment on above: Performed By: #### C BC ####[facility] Yjwrsnkuqe6327[address] [place], [place] [address]Dr. Farhat Leal Erythrocyte distribution width (RBC) [Ratio] 15.5 % Critically high 11.0-15.0 [facility] Comment on above: Performed By: #### C BC ####[facility] Dwnaphwvmt6094[address] [place], [place] [address]Dr. Farhat Leal Hematocrit (Bld) [Volume fraction] 34.1 % Critically low 42.0-54.0 [facility] Comment on above: Performed By: #### C BC ####[facility] Abpoiwtfwv65[address] [place], [place] [address]Dr. Farhat Leal Hemoglobin (Bld) [Mass/Vol] 11.3 g/dL Critically low 14.0-18.0 [facility] Comment on above: Performed By: #### C BC ####[facility] Pkvpgjfdpx7132 [place] [phone]. Farhat Leal IG # 0.03 10e3/ul Normal 0.00-0.03 [facility] Comment on above: Performed By: #### C BC ####[facility] Oiwiztnslu0348 [place] [phone]. Madelynlorri Leal IG % 0.5 % Normal 0.0-0.5 [facility] Comment on above: Performed By: #### C BC ####[facility] Owmjlqcars8214 [place] [address]Dr. Farhat Elvis LYMPH # 2.1 103/ul Normal 1.2-3.8 [facility] Comment on above: Performed By: #### C BC ####[facility] Bvfywpawes2301 [place] [address]Dr. Farhat Leal Lymphocytes/100 WBC (Bld) 34.6 % Normal 20.5-60.0 [facility] Comment on above: Performed By: #### C BC ####[facility] Q[address]ffcrsw25[address] [place], [place] [address]Dr. Madelynlorri Leal MANUAL DIFF REQ NO Normal [facility] Comment on above: Performed By: #### C BC ####[facility] Dndqzrndga5664 [place] [address]Dr. Farhat Leal MCH (RBC) [Entitic mass] 30.3 pg Normal 25.9-34.0 [facility] Comment on above: Performed By: #### C BC ####[facility] Ycwbkzixah8644 [place] [address]Dr. Farhat Leal MCHC (RBC) [Mass/Vol] 33.1 g/dL Normal 29.9-35.2 [facility] Comment on above: Performed By: #### C BC ####[facility] [address]wgyvoaa[address] [place], [place] [address]Dr. Madelynlorri Leal MCV (RBC) [Entitic vol] 91.4 fL Normal 80.0-94.0 [facility] Comment on above: Performed By: #### C BC ####[facility] Qrcuclihra5667 [place] [phone]. Farhat Leal MONO # 0.7 103/ul Normal 0.3-0.8 [facility] Comment on above: Performed By: #### C BC ####[facility] Ibpnvdfppl5634 [place] [phone]. Farhat Leal Monocytes/100 WBC (Bld) 11.6 % Normal 1.7-12.0 [facility] Comment on above: Performed By: #### C BC ####[facility] Vmruizptuu2729 [place] [phone]. Farhat Leal NEUT # 2.9 103/ul Normal 1.4-6.5 [facility] Comment on above: Performed By: #### C BC ####[facility] Sawjuclofb4091 [place] [phone]. Farhat Leal Neutrophils/100 WBC (Bld) 48.8 % Normal 43.0-75.0 [facility] Comment on above: Performed By: #### C BC ####[facility] Oqvtvvmjdz3438 [place] [phone]. Farhat Leal Platelet mean volume (Bld) [Entitic vol] 10.9 fL Normal 9.5-13.5 [facility] Comment on above: Performed By: #### C BC ####[facility] Mfywqkqqcs39[address] [place] [phone]. Farhat Leal PLT 186 103/ul Normal 150-450 [facility] Comment on above: Performed By: #### C BC ####[facility] Gcctbakzac89[address] [place] [phone]. Farhat Leal RBC 3.73 106/ul Critically low 4.70-6.10 [facility] Comment on above: Performed By: #### C BC ####[facility] Qlegeqvtln6507 [place] [phone]. Farhat Leal WBC 6.0 103/ul Normal 4.0-11.0 [facility] Comment on above: Performed By: #### C BC ####[facility] Jooucdvkgy89[address] [place] [phone]. Farhat Leal PROF 14(COMP METB)on 023 Albumin [Mass/Vol] 2.7 g/dL Critically low 3.4-5.0 [facility] Comment on above: Performed By: #### C MP ####[facility] Mvqiyvxxco4[address] [place] [address]Dr. Frahat Leal Albumin/Globulin [Mass ratio] 0.8 {ratio} Normal [facility] Comment on above: Performed By: #### C MP ####[facility] Kavysswwta58[address] [place] [address]Dr. Farhat Leal ALP [Catalytic activity/Vol] 60 U/L Normal 46-116 [facility] Comment on above: Performed By: #### C MP ####[facility] Y[address]jbyojnbk[address] [place], [place] [address]Dr. Farhat Leal ALT [Catalytic activity/Vol] 17 U/L Normal 16-63 [facility] Comment on above: Performed By: #### C MP ####[facility] Lppgtgkpci6[address] [place], [place] [address]Dr. Farhat Leal Anion gap [Moles/Vol] 9.6 mmol/L Normal [facility] Comment on above: Performed By: #### C MP ####[facility] Fqotulbtoq11[address] [place], [place] [address]Dr. Farhat Leal AST [Catalytic activity/Vol] 14 U/L Critically low 15-37 [facility] Comment on above: Performed By: #### C MP ####[facility] Lbhertvfwg[address] [place], [place] [address]Dr. Farhat Leal Bilirubin [Mass/Vol] 0.5 mg/dL Normal 0.2-1.0 [facility] Comment on above: Performed By: #### C MP ####[facility] Lhigdmfmty13[address] [place], [place] [address]Dr. Farhat Leal Calcium [Mass/Vol] 8.4 mg/dL Critically low 8.5-10.1 [facility] Comment on above: Performed By: #### C MP ####[facility] Bgoalyjeej9[address] [place] [address]Dr. Farhat Leal Chloride [Moles/Vol] 104 mmol/L Normal 98-107 [facility] Comment on above: Performed By: #### C MP ####[facility] Zgsgzntenz5425[address] [place], [place] [address]Dr. Madelynlorri Elvis CO2 [Moles/Vol] 27.2 mmol/L Normal 21.0-32.0 [facility] Comment on above: Performed By: #### C MP ####[facility] Jbiuzvcpco5394[address] [place], [place] [address]Dr. Farhat Leal Creatinine [Mass/Vol] 1.24 mg/dL Normal 0.70-1.30 [facility] Comment on above: Performed By: #### C MP ####[facility] Teryiguptq0746[address] [place], [place] [address]Dr. Farhat Leal EGFR-AF JAMAICAN >60 Normal >=60 [facility] Comment on above: Performed By: #### C MP ####[facility] Ntdhpxvdmo507[address] [place], [place] [address]Dr. Farhat Leal EGFR-NON AF J[place] 57 mL/min/1.73m2 Critically low >=60 [facility] Comment on above: Performed By: #### C MP ####[facility] Orbetdbcej26[address] [place], [place] [address]Dr. Farhat Leal Globulin (S) [Mass/Vol] 3.3 g/dL Normal [facility] Comment on above: Performed By: #### C MP ####[facility] Mjnvrbmtua95[address] [place], [place] [address]Dr. Farhat Leal Glucose [Mass/Vol] 275 mg/dL Critically high 74-106 T [facility] Comment on above: Performed By: #### C MP ####[facility] Daaeidvbbt80[address] [place], [place] [address]Dr. Farhat Leal Potassium [Moles/Vol] 3.8 mmol/L Normal 3.5-5.1 [facility] Comment on above: Performed By: #### C MP ####[facility] Jkgaxhbcxq9615[address] [place], [place] [address]Dr. Farhat Leal Protein [Mass/Vol] 6.0 g/dL Critically low 6.4-8.2 Th [facility] Comment on above: Performed By: #### C MP ####[facility] Nbklhyveno7[address] [place], [place] [address]Dr. Farhat Leal Sodium [Moles/Vol] 137 mmol/L Normal 136-145 [facility] Comment on above: Performed By: #### C MP ####[facility] Qolfvgwqdz7412[address] [place], [place] [address]Dr. Farhat Leal Urea nitrogen [Mass/Vol] 54.0 mg/dL Critically high 7.0-18.0 [facility] Comment on above: Performed By: #### C MP ####[facility] Krsdaxjlap6704[address] [place], [place] [address]Dr. Farhat Leal Urea nitrogen/Creatinine [Mass ratio] 43.5 mg/mg Normal [facility] Comment on above: Performed By: #### C MP ####[facility] Nhnirqnwqx557[address] [place], [place] [address]Dr. Farhat Leal PROTIMEon 05-22-2022 INR Coag (PPP) [Relative time] 2.27 {INR} Normal [facility] Comment on above: Performed By: #### P T ####[facility] Londzkgncn1732[address] [place], [place] [address]Dr. Farhat Leal INR GUIDELINES SEE BELOW Normal [facility] Comment on above: Result Comment: MALINA RED INR: 2.0 - 3.0 CONDITIONS NOT LISTED BELOW 2.5 - 3.5 FOR PROSTHETIC HEART VALVE REPLACEMENT 2.5 - 3.5 RECURRENT THROMBOSIS Performed By: #### P T ####[facility] Vfnwqfteqm7699[address] [place], [place] [address]Dr. Farhat Leal PT Coag (PPP) [Time] 23.0 s Critically high 9.0-11.6 [facility] Comment on above: Performed By: #### P T ####[facility] Orgzzvrtvx7433[address] [place], [place] [address]Dr. Farhat Leal FK506 (TACROLIMUS) WHOLE BLO ODon 05-19-2022 Tacrolimus (FK506), Blood 7.8 ng/mL Normal 2.0-20.0 [facility] Comment on above: Result Comment: Trou gh (immediately following transplant) 15.0 . Trough (steady state, 2 weeks or more after transplant): 3.0 - 8.0 . Performed by LC-MS/MS technology. Performed By: #### F K506T ####[facility] Xbpyhqkjht58[address] [place], [place] [address]Dr. Farhat Leal CBC AUTO DIFFon 05-15-2022 BASO # 0.0 103/ul Normal 0.0-0.1 [facility] Comment on above: Performed By: #### C BC ####[facility] Zhfthoghgh266[address] [place], [place] [address]Dr. Farhat Leal Basophils/100 WBC (Bld) 0.4 % Normal 0.2-2.0 [facility] Comment on above: Performed By: #### C BC ####[facility] Kwfaxgxnkz5601[address] [place], [place] [address]Dr. Farhat Leal EO # 0.2 103/ul Normal 0.0-0.7 [facility] Comment on above: Performed By: #### C BC ####[facility] Ardzhqpucb337[address] [place], [place] [address]Dr. Farhat Leal Eosinophils/100 WBC (Bld) 3.0 % Normal 0.9-7.0 [facility] Comment on above: Performed By: #### C BC ####[facility] Pxoxcjhidd9439[address] [place], [place] [address]Dr. Farhat Leal Erythrocyte distribution width (RBC) [Ratio] 15.7 % Critically high 11.0-15.0 [facility] Comment on above: Performed By: #### C BC ####[facility] Zrfetmsfnt5785[address] [place], [place] [address]Dr. Farhat Leal Hematocrit (Bld) [Volume fraction] 36.8 % Critically low 42.0-54.0 [facility] Comment on above: Performed By: #### C BC ####[facility] Bnvjsmqgkq716214 [address] [place], [place] [address]Dr. Farhat Leal Hemoglobin (Bld) [Mass/Vol] 12.4 g/dL Critically low 14.0-18.0 [facility] Comment on above: Performed By: #### C BC ####[facility] Xxhcegjqum7[address] [place] [address]DrSkylar Leal IG # 0.01 10e3/ul Normal 0.00-0.03 [facility] Comment on above: Performed By: #### C BC ####[facility] Yulvkbewdy55[address] [place] [address]DrSkylar Leal IG % 0.1 % Normal 0.0-0.5 [facility] Comment on above: Performed By: #### C BC ####[facility] Edkxtxguqf299[address] [place], [place] [address]DrSkylar Leal LYMPH # 2.4 103/ul Normal 1.2-3.8 [facility] Comment on above: Performed By: #### C BC ####[facility] Kkampprrrp335[address] [place], [place] [address]DrSkylar Leal Lymphocytes/100 WBC (Bld) 35.6 % Normal 20.5-60.0 [facility] Comment on above: Performed By: #### C BC ####[facility] Vxlukmognq4996[address] [place], [place] [address]DrSkylar Leal MANUAL DIFF REQ NO Normal [facility] Comment on above: Performed By: #### C BC ####[facility] Dioftpbkbs5[address] [place] [address]DrSkylar Leal MCH (RBC) [Entitic mass] 30.1 pg Normal 25.9-34.0 [facility] Comment on above: Performed By: #### C BC ####[facility] Flmboacvjs0687 [place] [address]DrSkylar Leal MCHC (RBC) [Mass/Vol] 33.7 g/dL Normal 29.9-35.2 [facility] Comment on above: Performed By: #### C BC ####[facility] Jfhngpvxvt4126 [place] [address]DrSkylar Leal MCV (RBC) [Entitic vol] 89.3 fL Normal 80.0-94.0 [facility] Comment on above: Performed By: #### C BC ####[facility] Seazgzhqhe9577 [place] [address]DrSkylar Farhat Elvis MONO # 0.7 103/ul Normal 0.3-0.8 [facility] Comment on above: Performed By: #### C BC ####[facility] Vcgcgsjxxi3376 [place] [address]DrSkylar Leal Monocytes/100 WBC (Bld) 10.8 % Normal 1.7-12.0 [facility] Comment on above: Performed By: #### C BC ####[facility] Pguhwvpkic2351 [place] [address]Dr. Madelynlorri Leal NEUT # 3.4 103/ul Normal 1.4-6.5 [facility] Comment on above: Performed By: #### C BC ####[facility] Kpgvjvnqmp9084 [place] [address]Dr. Farhat Leal Neutrophils/100 WBC (Bld) 50.1 % Normal 43.0-75.0 [facility] Comment on above: Performed By: #### C BC ####[facility] Ovvthkumbu14[address] [place], [place] [address]DrSkylar Madelynlorri Leal Platelet mean volume (Bld) [Entitic vol] 10.2 fL Normal 9.5-13.5 [facility] Comment on above: Performed By: #### C BC ####[facility] Pylerojjil[address] [place], [place] [address]Dr. Farhat Leal PLT 190 103/ul Normal 150-450 [facility] Comment on above: Performed By: #### C BC ####[facility] Piobfeaqro64[address] [place], [place] [address]DrSkylar Leal RBC 4.12 106/ul Critically low 4.70-6.10 [facility] Comment on above: Performed By: #### C BC ####[facility] Usafunvjwn8339 [place] [phone] Leal WBC 6.8 103/ul Normal 4.0-11.0 [facility] Comment on above: Performed By: #### C BC ####[facility] Ymjobirmfj2043 [place] [address]DrSkylar Leal PROF 14(COMP METB)on 023 Albumin [Mass/Vol] 2.8 g/dL Critically low 3.4-5.0 [facility] Comment on above: Performed By: #### C MP ####[facility] Sbhiphexxe9244 [place] [address]DrSkylar Lela Albumin/Globulin [Mass ratio] 0.9 {ratio} Normal [facility] Comment on above: Performed By: #### C MP ####[facility] Wakptnvbhf[address] [place], [place] [address]Dr. Farhat Leal ALP [Catalytic activity/Vol] 66 U/L Normal 46-116 [facility] Comment on above: Performed By: #### C MP ####[facility] Vikiquqdad4765[address] [place], [place] [address]Dr. Farhat Leal ALT [Catalytic activity/Vol] 15 U/L Critically low 16-63 [facility] Comment on above: Performed By: #### C MP ####[facility] Zgomosnlza56[address] [place], [place] [address]DrSkylar Leal Anion gap [Moles/Vol] 11.1 mmol/L Normal [facility] Comment on above: Performed By: #### C MP ####[facility] Heoyeonncn27[address] [place], [place] [address]DrSkylar Leal AST [Catalytic activity/Vol] 14 U/L Critically low 15-37 [facility] Comment on above: Performed By: #### C MP ####[facility] Odpjnhpdao4036 [place] [address]DrSkylar Leal Bilirubin [Mass/Vol] 0.8 mg/dL Normal 0.2-1.0 [facility] Comment on above: Performed By: #### C MP ####[facility] Jbzlvscotw9120 [place] [address]DrSkylar Leal Calcium [Mass/Vol] 8.9 mg/dL Normal 8.5-10.1 [facility] Comment on above: Performed By: #### C MP ####[facility] Bkqnzsrktq5062 [place] [address]Dr. Farhat Leal Chloride [Moles/Vol] 101 mmol/L Normal 98-107 [facility] Comment on above: Performed By: #### C MP ####[facility] Flkabkxedd6975 [place] [phone]. Farhat Leal CO2 [Moles/Vol] 28.2 mmol/L Normal 21.0-32.0 [facility] Comment on above: Performed By: #### C MP ####[facility] Hmdtmgmity8990 [place] [address]Dr. Farhat Leal Creatinine [Mass/Vol] 1.23 mg/dL Normal 0.70-1.30 [facility] Comment on above: Performed By: #### C MP ####[facility] Ykvaqqlygs8285 [place] [address]Dr. Farhat Leal EGFR-AF J[place]ICAN >60 Normal >=60 [facility] Comment on above: Performed By: #### C MP ####[facility] Ibihlfzroh6232 [place] [address]Dr. Farhat Leal EGFR-NON AF [place] 57 mL/min/1.73m2 Critically low >=60 [facility] Comment on above: Performed By: #### C MP ####[facility] Cgvtrxelzy5913 [place] [address]Dr. Farhat Leal Globulin (S) [Mass/Vol] 3.2 g/dL Normal [facility] Comment on above: Performed By: #### C MP ####[facility] Tgxdodmfgp0807 [place] [phone]. Farhat Leal Glucose [Mass/Vol] 333 mg/dL Critically high 74-106 T [facility] Comment on above: Performed By: #### C MP ####[facility] Kytntkxbzh9726 [place] [address]Dr. Farhat Leal Potassium [Moles/Vol] 4.3 mmol/L Normal 3.5-5.1 [facility] Comment on above: Performed By: #### C MP ####[facility] Mxixntfsgq0432 [place] [address]Dr. Farhat Leal Protein [Mass/Vol] 6.0 g/dL Critically low 6.4-8.2 [facility] Comment on above: Performed By: #### C MP ####[facility] Tpstqgjpos9182 [place] [address]Dr. Farhat Leal Sodium [Moles/Vol] 136 mmol/L Normal 136-145 [facility] Comment on above: Performed By: #### C MP ####[facility] Rjqigapehw2[address] [place], [place] [address]Dr. Farhat Leal Urea nitrogen [Mass/Vol] 58.0 mg/dL Critically high 7.0-18.0 [facility] Comment on above: Performed By: #### C MP ####[facility] Lznzfotjoi9[address] [place], [place] [address]Dr. Farhat Leal Urea nitrogen/Creatinine [Mass ratio] 47.2 mg/mg Normal [facility] Comment on above: Performed By: #### C MP ####[facility] Vomphukzbi[address] [place], [place] [address]Dr. Farhat Leal PROTIMEon 05-13-2022 INR Coag (PPP) [Relative time] 3.51 {INR} Normal [facility] Comment on above: Performed By: #### P T ####[facility] Peuoharyxu9525[address] [place], [place] [address]Dr. Farhat Leal INR GUIDELINES SEE BELOW Normal [facility] Comment on above: Result Comment: MALINA RED INR: 2.0 - 3.0 CONDITIONS NOT LISTED BELOW 2.5 - 3.5 FOR PROSTHETIC HEART VALVE REPLACEMENT 2.5 - 3.5 RECURRENT THROMBOSIS Performed By: #### P T ####[facility] Ouqfihseqh668[address] [place], [place] [address]Dr. Farhat Leal PT Coag (PPP) [Time] 34.7 s Critically high 9.0-11.6 [facility] Comment on above: Performed By: #### P T ####[facility] Tdkrzgkdtt8838[address] [place], [place] [address]Dr. Farhat Leal FK506 (TACROLIMUS) WHOLE BLO ODon 05-11-2022 Tacrolimus (FK506), Blood 14.4 ng/mL Normal 2.0-20.0 [facility] Comment on above: Result Comment: Trou gh (immediately following transplant) 15.0 . Trough (steady state, 2 weeks or more after transplant): 3.0 - 8.0 . Performed by LC-MS/MS technology. Performed By: #### F K506T ####[facility] Uxxufpkdqd01[address] [place], [place] [address]Dr. Farhat Leal CBC AUTO DIFFon 05-08-2022 BASO # 0.0 103/ul Normal 0.0-0.1 [facility] Comment on above: Performed By: #### C BC ####[facility] Wvioeiztzx7[address] [place], [place] [address]Dr. Farhat Leal Basophils/100 WBC (Bld) 0.5 % Normal 0.2-2.0 [facility] Comment on above: Performed By: #### C BC ####[facility] Hmzeenfamf[address] [place], [place] [address]Dr. Farhat Leal EO # 0.2 103/ul Normal 0.0-0.7 [facility] Comment on above: Performed By: #### C BC ####[facility] Vrpebohtxb9514[address] [place], [place] [address]Dr. Farhat Leal Eosinophils/100 WBC (Bld) 2.9 % Normal 0.9-7.0 [facility] Comment on above: Performed By: #### C BC ####[facility] Cywpmcqweo1742[address] [place], [place] [address]Dr. Farhat Leal Erythrocyte distribution width (RBC) [Ratio] 16.0 % Critically high 11.0-15.0 [facility] Comment on above: Performed By: #### C BC ####[facility] Qdymhtlsde0654[address] [place], [place] [address]Dr. Farhat Leal Hematocrit (Bld) [Volume fraction] 35.7 % Critically low 42.0-54.0 [facility] Comment on above: Performed By: #### C BC ####[facility] Jslezojzct4552 [place] [phone]. Farhat Leal Hemoglobin (Bld) [Mass/Vol] 11.9 g/dL Critically low 14.0-18.0 [facility] Comment on above: Performed By: #### C BC ####[facility] Hxhuyfbimm2435 [place] [phone]. Farhat Leal IG # 0.03 10e3/ul Normal 0.00-0.03 [facility] Comment on above: Performed By: #### C BC ####[facility] Qycetwnjjq5966 [place] [phone]. Farhat Leal IG % 0.5 % Normal 0.0-0.5 [facility] Comment on above: Performed By: #### C BC ####[facility] Ypyvqraskl9591 [place] [address]Dr. Farhat Leal LYMPH # 2.4 103/ul Normal 1.2-3.8 [facility] Comment on above: Performed By: #### C BC ####[facility] Lpycuopdcq2911 [place] [phone]. Farhat Leal Lymphocytes/100 WBC (Bld) 37.8 % Normal 20.5-60.0 [facility] Comment on above: Performed By: #### C BC ####[facility] Ulvhsrbpyu4718 [place] [phone]. Farhat Leal MANUAL DIFF REQ NO Normal [facility] Comment on above: Performed By: #### C BC ####[facility] R[address]zlfbvsa[address] [place], [place] [address]Dr. Farhat Leal MCH (RBC) [Entitic mass] 30.4 pg Normal 25.9-34.0 [facility] Comment on above: Performed By: #### C BC ####[facility] Hroshmnwwk7448 [place] [phone]. Farhat Leal MCHC (RBC) [Mass/Vol] 33.3 g/dL Normal 29.9-35.2 [facility] Comment on above: Performed By: #### C BC ####[facility] Hwdbsymkls7747 [place] [phone]. Farhat Leal MCV (RBC) [Entitic vol] 91.1 fL Normal 80.0-94.0 [facility] Comment on above: Performed By: #### C BC ####[facility] Wwckuzozar9933 [place] [phone]. Farhat Leal MONO # 0.7 103/ul Normal 0.3-0.8 [facility] Comment on above: Performed By: #### C BC ####[facility] Ajlieyftol4050 [place] [phone]. Farhat Leal Monocytes/100 WBC (Bld) 11.1 % Normal 1.7-12.0 [facility] Comment on above: Performed By: #### C BC ####[facility] Zbxghfxkoc3375[address] [place], [place] [address]Dr. Farhat Leal NEUT # 2.9 103/ul Normal 1.4-6.5 [facility] Comment on above: Performed By: #### C BC ####[facility] Uyyoicnjsr[address] [place], [place] [address]Dr. Farhat Leal Neutrophils/100 WBC (Bld) 47.2 % Normal 43.0-75.0 [facility] Comment on above: Performed By: #### C BC ####[facility] Xvtoxdmsqu585[address] [place], [place] [address]Dr. Farhat Leal Platelet mean volume (Bld) [Entitic vol] 11.0 fL Normal 9.5-13.5 [facility] Comment on above: Performed By: #### C BC ####[facility] Ghhtlpxpxz[address] [place], [place] [address]Dr. Farhat Leal PLT 191 103/ul Normal 150-450 [facility] Comment on above: Performed By: #### C BC ####[facility] Fyjvqnbbuj6[address] [place], [place] [address]Dr. Farhat Leal RBC 3.92 106/ul Critically low 4.70-6.10 [facility] Comment on above: Performed By: #### C BC ####[facility] Zntcncteot4315 [place] [address]Dr. Farhat Leal WBC 6.2 103/ul Normal 4.0-11.0 [facility] Comment on above: Performed By: #### C BC ####[facility] Bxhotmwoyi0153 [place] [address]Dr. Farhat Leal MAGNESIUMon 05-08-2022 Magnesium [Mass/Vol] 1.9 mg/dL Normal 1.8-2.4 [facility] Comment on above: Performed By: #### P HOS, MG ####[facility] Eapvtxvffi9153 [place] [address]Dr. Farhat Leal PHOSPHORUSon 05-08-2022 Phosphate [Mass/Vol] 4.5 mg/dL Normal 2.6-4.7 [facility] Comment on above: Performed By: #### P HOS, MG ####[facility] Mlodlviasq9[address] [place], [place] [address]Dr. Farhat Leal PROF 14(COMP METB)on 023 Albumin [Mass/Vol] 2.9 g/dL Critically low 3.4-5.0 [facility] Comment on above: Performed By: #### C MP ####[facility] Vkhbsjlyui44[address] [place], [place] [address]Dr. Farhat Leal Albumin/Globulin [Mass ratio] 0.9 {ratio} Normal [facility] Comment on above: Performed By: #### C MP ####[facility] Opuozfsxwl9944[address] [place], [place] [address]Dr. Farhat Leal ALP [Catalytic activity/Vol] 70 U/L Normal 46-116 [facility] Comment on above: Performed By: #### C MP ####[facility] Wdjkgodrpe4889 [place] [address]Dr. Farhat Leal ALT [Catalytic activity/Vol] 13 U/L Critically low 16-63 [facility] Comment on above: Performed By: #### C MP ####[facility] Gthnngpslp6775 [place] [address]Dr. Farhat Leal Anion gap [Moles/Vol] 14.6 mmol/L Normal [facility] Comment on above: Performed By: #### C MP ####[facility] Vhlkxezisu8017 [place] [address]Dr. Farhat Leal AST [Catalytic activity/Vol] 17 U/L Normal 15-37 [facility] Comment on above: Performed By: #### C MP ####[facility] Yuccpciwjv3367 [place] [phone]. Farhat Leal Bilirubin [Mass/Vol] 0.8 mg/dL Normal 0.2-1.0 [facility] Comment on above: Performed By: #### C MP ####[facility] Prlleikaxc3751 [place] [address]Dr. Farhat Leal Calcium [Mass/Vol] 8.9 mg/dL Normal 8.5-10.1 [facility] Comment on above: Performed By: #### C MP ####[facility] Xcbkbglujj25[address] [place], [place] [address]Dr. Farhat Leal Chloride [Moles/Vol] 102 mmol/L Normal 98-107 [facility] Comment on above: Performed By: #### C MP ####[facility] Dhijxirdsa36[address] [place], [place] [address]Dr. Farhat Leal CO2 [Moles/Vol] 22.9 mmol/L Normal 21.0-32.0 [facility] Comment on above: Performed By: #### C MP ####[facility] Vrwkrgkqpe5[address] [place], [place] [address]Dr. Farhat Lael Creatinine [Mass/Vol] 1.20 mg/dL Normal 0.70-1.30 [facility] Comment on above: Performed By: #### C MP ####[facility] Klqbrphamg3890 [place] [address]Dr. Farhat Leal EGFR-AF JAMAICAN >60 Normal >=60 [facility] Comment on above: Performed By: #### C MP ####[facility] Yaatdmnmya0932 [place] [address]Dr. Farhat Leal EGFR-NON AF [place] 59 mL/min/1.73m2 Critically low >=60 [facility] Comment on above: Performed By: #### C MP ####[facility] Htrexoyyge8251 [place] [phone]. Farhat Leal Globulin (S) [Mass/Vol] 3.1 g/dL Normal [facility] Comment on above: Performed By: #### C MP ####[facility] Ymogsfindr2373 [place] [phone]. Farhat Leal Glucose [Mass/Vol] 447 mg/dL Critically high 74-106 T [facility] Comment on above: Performed By: #### C MP ####[facility] Tjubnmroar3662 [place] [phone]. Farhat Leal Potassium [Moles/Vol] 4.5 mmol/L Normal 3.5-5.1 [facility] Comment on above: Performed By: #### C MP ####[facility] Pgstmfwcvc9744 [place] [address]Dr. Farhat Leal Protein [Mass/Vol] 6.0 g/dL Critically low 6.4-8.2 [facility] Comment on above: Performed By: #### C MP ####[facility] Twjuytcvij[address] [place], [place] [address]Dr. Farhat Leal Sodium [Moles/Vol] 135 mmol/L Critically low 136-145 [facility] Comment on above: Performed By: #### C MP ####[facility] Kyorvjzauj1065 [place] [address]Dr. Farhat Leal Urea nitrogen [Mass/Vol] 52.0 mg/dL Critically high 7.0-18.0 [facility] Comment on above: Performed By: #### C MP ####[facility] Cyavcbjbko6668 [place] [address]Dr. Farhat Leal Urea nitrogen/Creatinine [Mass ratio] 43.3 mg/mg Normal [facility] Comment on above: Performed By: #### C MP ####[facility] Snbdghgorj2054 [place] [address]Dr. Farhat Elvis PROTIMEon 05-06-2022 INR Coag (PPP) [Relative time] 2.25 {INR} Normal [facility] Comment on above: Performed By: #### P T ####[facility] Cyhaatqomo2529 [place] [address]DrSkylar Leal INR GUIDELINES SEE BELOW Normal [facility] Comment on above: Result Comment: MALINA RED INR: 2.0 - 3.0 CONDITIONS NOT LISTED BELOW 2.5 - 3.5 FOR PROSTHETIC HEART VALVE REPLACEMENT 2.5 - 3.5 RECURRENT THROMBOSIS Performed By: #### P T ####[facility] Ggapbpodux[address] [place], [place] [address]Dr. Farhat Leal PT Coag (PPP) [Time] 22.8 s Critically high 9.0-11.6 [facility] Comment on above: Performed By: #### P T ####[facility] Kveultlirk[address] [place], [place] [address]Dr. Farhat Leal FK506 (TACROLIMUS) WHOLE BLO ODon 05-04-2022 Tacrolimus (FK506), Blood 10.4 ng/mL Normal 2.0-20.0 [facility] Comment on above: Result Comment: Trou gh (immediately following transplant) 15.0 . Trough (steady state, 2 weeks or more after transplant): 3.0 - 8.0 . Performed by LC-MS/MS technology. Performed By: #### F K506T ####[facility] [address] [place], [place] [address]DrSkylar Leal CBC AUTO DIFFon 05-01-2022 BASO # 0.1 103/ul Normal 0.0-0.1 [facility] Comment on above: Performed By: #### C BC ####[facility] Qjhfckpyvs[address] [place], [place] [address]Dr. Farhat Leal Basophils/100 WBC (Bld) 0.7 % Normal 0.2-2.0 [facility] Comment on above: Performed By: #### C BC ####[facility] O[address]jmvjweq0[address] [place], [place] [address]Dr. Farhat Leal EO # 0.2 103/ul Normal 0.0-0.7 [facility] Comment on above: Performed By: #### C BC ####[facility] Nkhvwqojax2825 [place] [phone]. Farhat Leal Eosinophils/100 WBC (Bld) 3.2 % Normal 0.9-7.0 [facility] Comment on above: Performed By: #### C BC ####[facility] Ynpstqgajm0447 [place] [phone]. Farhat Leal Erythrocyte distribution width (RBC) [Ratio] 16.4 % Critically high 11.0-15.0 [facility] Comment on above: Performed By: #### C BC ####[facility] Toxrmcyvss7[address] [place], [place] [address]Dr. Farhat Leal Hematocrit (Bld) [Volume fraction] 35.1 % Critically low 42.0-54.0 [facility] Comment on above: Performed By: #### C BC ####[facility] Gqoymozxgh64[address] [place], [place] [address]Dr. Farhat Leal Hemoglobin (Bld) [Mass/Vol] 11.6 g/dL Critically low 14.0-18.0 [facility] Comment on above: Performed By: #### C BC ####[facility] Ezokpwswve22[address] [place], [place] [address]Dr. Farhat Leal IG # 0.03 10e3/ul Normal 0.00-0.03 [facility] Comment on above: Performed By: #### C BC ####[facility] Ysgqvumdey[address] [place], [place] [address]Dr. Farhat Leal IG % 0.4 % Normal 0.0-0.5 [facility] Comment on above: Performed By: #### C BC ####[facility] Odagdrjlxj[address] [place], [place] [address]Dr. Farhat Leal LYMPH # 2.4 103/ul Normal 1.2-3.8 [facility] Comment on above: Performed By: #### C BC ####[facility] Sjddfsluqy[address] [place], [place] [address]Dr. Farhat Leal Lymphocytes/100 WBC (Bld) 35.1 % Normal 20.5-60.0 [facility] Comment on above: Performed By: #### C BC ####[facility] Ihybvjnbhr7154 [place] [phone]. Farhat Leal MANUAL DIFF REQ NO Normal [facility] Comment on above: Performed By: #### C BC ####[facility] Egizweehit7884 [place] [phone]. Farhat Leal MCH (RBC) [Entitic mass] 29.4 pg Normal 25.9-34.0 [facility] Comment on above: Performed By: #### C BC ####[facility] Vanmjdzilx7[address] [place], [place] [address]Dr. Farhat Leal MCHC (RBC) [Mass/Vol] 33.0 g/dL Normal 29.9-35.2 [facility] Comment on above: Performed By: #### C BC ####[facility] Bzeldkrpdk9[address] [place], [place] [address]Dr. Farhat Leal MCV (RBC) [Entitic vol] 88.9 fL Normal 80.0-94.0 [facility] Comment on above: Performed By: #### C BC ####[facility] Pgyaznzjvx34[address] [place], [place] [address]Dr. Farhat Leal MONO # 0.7 103/ul Normal 0.3-0.8 [facility] Comment on above: Performed By: #### C BC ####[facility] Wybmotxeca464[address] [place], [place] [address]Dr. Farhat Elvis Monocytes/100 WBC (Bld) 9.6 % Normal 1.7-12.0 [facility] Comment on above: Performed By: #### C BC ####[facility] Kfwklnufti8[address] [place], [place] [address]Dr. Farhat Leal NEUT # 3.5 103/ul Normal 1.4-6.5 [facility] Comment on above: Performed By: #### C BC ####[facility] Ogwopqagly60[address] [place], [place] [address]Dr. Farhat Leal Neutrophils/100 WBC (Bld) 51.0 % Normal 43.0-75.0 [facility] Comment on above: Performed By: #### C BC ####[facility] Vyeedblbxy4775 [place] [phone]. Farhat Leal Platelet mean volume (Bld) [Entitic vol] 10.3 fL Normal 9.5-13.5 [facility] Comment on above: Performed By: #### C BC ####[facility] Uzjklgxkib1448 [place] [phone]. Farhat Leal PLT 184 103/ul Normal 150-450 [facility] Comment on above: Performed By: #### C BC ####[facility] Ysfwkuguzj9499 [place] [phone]. Farhat Leal RBC 3.95 106/ul Critically low 4.70-6.10 [facility] Comment on above: Performed By: #### C BC ####[facility] Blzzcqogpt56[address] [place] [address]Dr. Farhat Leal WBC 7.0 103/ul Normal 4.0-11.0 [facility] Comment on above: Performed By: #### C BC ####[facility] Zfnsquuthc0850 [place] [address]Dr. Farhat Leal PROF 14(COMP METB)on 023 Albumin [Mass/Vol] 2.6 g/dL Critically low 3.4-5.0 [facility] Comment on above: Performed By: #### C MP ####[facility] Gxincjoioa4203 [place] [address]Dr. Farhat Leal Albumin/Globulin [Mass ratio] 0.9 {ratio} Normal [facility] Comment on above: Performed By: #### C MP ####[facility] Tepexmofbo7100 [place] [address]Dr. Farhat Leal ALP [Catalytic activity/Vol] 53 U/L Normal 46-116 [facility] Comment on above: Performed By: #### C MP ####[facility] Yefrtgnuyd5044 [place] [address]Dr. Farhat Leal ALT [Catalytic activity/Vol] 17 U/L Normal 16-63 [facility] Comment on above: Performed By: #### C MP ####[facility] Goqktlresn2417 [place] [phone]. Farhat Leal Anion gap [Moles/Vol] 10.0 mmol/L Normal [facility] Comment on above: Performed By: #### C MP ####[facility] Flobuvbwsp5828 [place] [phone]. Farhat Leal AST [Catalytic activity/Vol] 19 U/L Normal 15-37 [facility] Comment on above: Performed By: #### C MP ####[facility] Dbezsdafta7604 [place] [phone]. Farhat Leal Bilirubin [Mass/Vol] 0.5 mg/dL Normal 0.2-1.0 [facility] Comment on above: Performed By: #### C MP ####[facility] [address]eml[address] [place], [place] [address]Dr. Farhat Leal Calcium [Mass/Vol] 8.4 mg/dL Critically low 8.5-10.1 [facility] Comment on above: Performed By: #### C MP ####[facility] Znowuounmc1392 [place] [phone]. Farhat Leal Chloride [Moles/Vol] 108 mmol/L Critically high 98-107 [facility] Comment on above: Performed By: #### C MP ####[facility] H[address]jtan[address] [place], [place] [address]Dr. Farhat Leal CO2 [Moles/Vol] 26.9 mmol/L Normal 21.0-32.0 [facility] Comment on above: Performed By: #### C MP ####[facility] Yfzgefdwat8765 [place] [phone]. Farhat Leal Creatinine [Mass/Vol] 1.20 mg/dL Normal 0.70-1.30 [facility] Comment on above: Performed By: #### C MP ####[facility] Mplrxaezpl2898 [place] [phone]. Farhat Leal EGFR-AF JAMAICAN >60 Normal >=60 [facility] Comment on above: Performed By: #### C MP ####[facility] Qollifvygf7479 [place] [phone]. Farhat Leal EGFR-NON AF J[place]ICAN 59 mL/min/1.73m2 Critically low >=60 [facility] Comment on above: Performed By: #### C MP ####[facility] Ojwwezexae5804 [place] [address]Dr. Farhat Leal Globulin (S) [Mass/Vol] 3.0 g/dL Normal [facility] Comment on above: Performed By: #### C MP ####[facility] Ftbksjrnkd0417 [place] [address]Dr. Farhat Leal Glucose [Mass/Vol] 213 mg/dL Critically high 74-106 T [facility] Comment on above: Performed By: #### C MP ####[facility] Lkpmdarton5649 [place] [address]Dr. Farhat Leal Potassium [Moles/Vol] 3.9 mmol/L Normal 3.5-5.1 [facility] Comment on above: Performed By: #### C MP ####[facility] Batomcgjwx0838 [place] [address]Dr. Farhat Leal Protein [Mass/Vol] 5.6 g/dL Critically low 6.4-8.2 [facility] Comment on above: Performed By: #### C MP ####[facility] [address]jmxlwxb[address] [place], [place] [address]Dr. Farhat Leal Sodium [Moles/Vol] 141 mmol/L Normal 136-145 [facility] Comment on above: Performed By: #### C MP ####[facility] Xylkjwiteu8650 [place] [address]Dr. Farhat Leal Urea nitrogen [Mass/Vol] 61.0 mg/dL Critically high 7.0-18.0 [facility] Comment on above: Performed By: #### C MP ####[facility] Orhkdbxdxl4753 [place] [address]Dr. Farhat Leal Urea nitrogen/Creatinine [Mass ratio] 50.8 mg/mg Normal [facility] Comment on above: Performed By: #### C MP ####[facility] Ldfpwslfpu77[address] [place], [place] [address]Dr. Farhat Elvis FK506 (TACROLIMUS) WHOLE BLO ODon 04-27-2022 Tacrolimus (FK506), Blood 16.5 ng/mL Normal 2.0-20.0 [facility] Comment on above: Result Comment: Trou gh (immediately following transplant) 15.0 . Trough (steady state, 2 weeks or more after transplant): 3.0 - 8.0 . Performed by LC-MS/MS technology. Performed By: #### F K506T ####[facility] Rzobayoccf[address] [place], [place] [address]Dr. Farhat Elvis CBC AUTO DIFFon 04-24-2022 BASO # 0.0 103/ul Normal 0.0-0.1 [facility] Comment on above: Performed By: #### C BC ####[facility] S[address]jltbyho[address] [place], [place] [address]Dr. Farhat Leal Basophils/100 WBC (Bld) 0.5 % Normal 0.2-2.0 [facility] Comment on above: Performed By: #### C BC ####[facility] Xgvgmyhduv[address] [place], [place] [address]Dr. Farhat Leal EO # 0.2 103/ul Normal 0.0-0.7 [facility] Comment on above: Performed By: #### C BC ####[facility] Antgonat[address] [place], [place] [address]Dr. Farhat Leal Eosinophils/100 WBC (Bld) 3.1 % Normal 0.9-7.0 [facility] Comment on above: Performed By: #### C BC ####[facility] Vxginiswdb8[address] [place], [place] [address]Dr. Farhat Leal Erythrocyte distribution width (RBC) [Ratio] 16.3 % Critically high 11.0-15.0 [facility] Comment on above: Performed By: #### C BC ####[facility] Gromegjlpy9[address] [place], [place] [address]Dr. Farhat Leal Hematocrit (Bld) [Volume fraction] 34.0 % Critically low 42.0-54.0 [facility] Comment on above: Performed By: #### C BC ####[facility] Kdjovfyikp1093 [place] [phone]. Farhat Leal Hemoglobin (Bld) [Mass/Vol] 11.6 g/dL Critically low 14.0-18.0 [facility] Comment on above: Performed By: #### C BC ####[facility] Kjmvzlwgqb4198 [place] [address]Dr. Farhat Leal IG # 0.02 10e3/ul Normal 0.00-0.03 [facility] Comment on above: Performed By: #### C BC ####[facility] Kweyuaghez[address] [place], [place] [address]Dr. Farhat Leal IG % 0.4 % Normal 0.0-0.5 [facility] Comment on above: Performed By: #### C BC ####[facility] Itzlkqnzka06[address] [place], [place] [address]Dr. Farhat Leal LYMPH # 2.2 103/ul Normal 1.2-3.8 [facility] Comment on above: Performed By: #### C BC ####[facility] Swqeewekzu488[address] [place], [place] [address]Dr. Farhat Leal Lymphocytes/100 WBC (Bld) 38.8 % Normal 20.5-60.0 [facility] Comment on above: Performed By: #### C BC ####[facility] Axrkcaotar06[address] [place], [place] [address]Dr. Farhat Leal MANUAL DIFF REQ NO Normal [facility] Comment on above: Performed By: #### C BC ####[facility] Qjnkrwlqta80[address] [place], [place] [address]Dr. Farhat Leal MCH (RBC) [Entitic mass] 30.1 pg Normal 25.9-34.0 [facility] Comment on above: Performed By: #### C BC ####[facility] Rpqeqehlmt2157[address] [place], [place] [address]Dr. Farhat Leal MCHC (RBC) [Mass/Vol] 34.1 g/dL Normal 29.9-35.2 [facility] Comment on above: Performed By: #### C BC ####[facility] Jsjlsojflu6251 [place] [phone]. Farhat Leal MCV (RBC) [Entitic vol] 88.1 fL Normal 80.0-94.0 [facility] Comment on above: Performed By: #### C BC ####[facility] Jpvxmwuyma3228 [place] [phone]. Farhat Leal MONO # 0.6 103/ul Normal 0.3-0.8 [facility] Comment on above: Performed By: #### C BC ####[facility] Ktxsrkidkh0189 [place] [phone]. Farhat Leal Monocytes/100 WBC (Bld) 10.8 % Normal 1.7-12.0 [facility] Comment on above: Performed By: #### C BC ####[facility] [address]isqmnl[address] [place], [place] [address]Dr. Farhat Leal NEUT # 2.6 103/ul Normal 1.4-6.5 [facility] Comment on above: Performed By: #### C BC ####[facility] Xgomtakihp[address] [place], [place] [address]Dr. Farhat Leal Neutrophils/100 WBC (Bld) 46.4 % Normal 43.0-75.0 [facility] Comment on above: Performed By: #### C BC ####[facility] Cltnqluhfa9399 [place] [phone]. Farhat Leal Platelet mean volume (Bld) [Entitic vol] 10.9 fL Normal 9.5-13.5 [facility] Comment on above: Performed By: #### C BC ####[facility] Kiywzucwgs3761 [place] [phone]. Farhat Leal PLT 159 103/ul Normal 150-450 [facility] Comment on above: Performed By: #### C BC ####[facility] Ziuvmowdtr8988 [place] [phone]. Farhat Leal RBC 3.86 106/ul Critically low 4.70-6.10 [facility] Comment on above: Performed By: #### C BC ####[facility] Ssbaaxfnuj9542 [place] [address]Dr. Farhat Leal WBC 5.6 103/ul Normal 4.0-11.0 [facility] Comment on above: Performed By: #### C BC ####[facility] Gbdeyyjcuq6848 [place] [address]DrSkylar Leal PROTIMEon 04-24-2022 INR Coag (PPP) [Relative time] 3.23 {INR} Normal [facility] Comment on above: Performed By: #### P T ####[facility] Oiakkcaciz8[address] [place], [place] [address]DrSkylar Leal INR GUIDELINES SEE BELOW Normal [facility] Comment on above: Result Comment: MALINA RED INR: 2.0 - 3.0 CONDITIONS NOT LISTED BELOW 2.5 - 3.5 FOR PROSTHETIC HEART VALVE REPLACEMENT 2.5 - 3.5 RECURRENT THROMBOSIS Performed By: #### P T ####[facility] Braqeukawr7[address] [place], [place] [address]DrSkylar Leal PT Coag (PPP) [Time] 32.0 s Critically high 9.0-11.6 [facility] Comment on above: Performed By: #### P T ####[facility] V[address]fwwyymvx7726[address] [place], [place] [address]DrSkylar Leal FK506 (TACROLIMUS) WHOLE BLO ODon 04-20-2022 Tacrolimus (FK506), Blood 13.9 ng/mL Normal 2.0-20.0 [facility] Comment on above: Result Comment: Trou gh (immediately following transplant) 15.0 . Trough (steady state, 2 weeks or more after transplant): 3.0 - 8.0 . Performed by LC-MS/MS technology. Performed By: #### F K506T ####[facility] Y[address]cpzydyfv[address] [place], [place] [address]DrSkylar Leal CBC AUTO DIFFon 04-17-2022 BASO # 0.0 103/ul Normal 0.0-0.1 [facility] Comment on above: Performed By: #### C BC ####[facility] Wnberbcobl607[address] [place], [place] [address]DrSkylar Leal Basophils/100 WBC (Bld) 0.4 % Normal 0.2-2.0 [facility] Comment on above: Performed By: #### C BC ####[facility] Veklgrnyzl7167[address] [place], [place] [address]Dr. Farhat Leal EO # 0.2 103/ul Normal 0.0-0.7 [facility] Comment on above: Performed By: #### C BC ####[facility] Nwwntxndyb9509[address] [place], [place] [address]Dr. Farhat Leal Eosinophils/100 WBC (Bld) 2.8 % Normal 0.9-7.0 [facility] Comment on above: Performed By: #### C BC ####[facility] Cifsdkknob33[address] [place], [place] [address]Dr. Farhat Leal Erythrocyte distribution width (RBC) [Ratio] 16.1 % Critically high 11.0-15.0 [facility] Comment on above: Performed By: #### C BC ####[facility] Ncmktggtml27[address] [place], [place] [address]Dr. Farhat Leal Hematocrit (Bld) [Volume fraction] 35.7 % Critically low 42.0-54.0 [facility] Comment on above: Performed By: #### C BC ####[facility] Zdrxiwgdlk[address] [place], [place] [address]Dr. Farhat Leal Hemoglobin (Bld) [Mass/Vol] 12.2 g/dL Critically low 14.0-18.0 [facility] Comment on above: Performed By: #### C BC ####[facility] Vaalfhorvf12[address] [place], [place] [address]Dr. Farhat Leal IG # 0.03 10e3/ul Normal 0.00-0.03 [facility] Comment on above: Performed By: #### C BC ####[facility] Nljoxnsqko8422[address] [place], [place] [address]Dr. Farhat Leal IG % 0.4 % Normal 0.0-0.5 [facility] Comment on above: Performed By: #### C BC ####[facility] Opyuczaumd[address] [place], [place] [address]Dr. Farhat Leal LYMPH # 2.4 103/ul Normal 1.2-3.8 [facility] Comment on above: Performed By: #### C BC ####[facility] Lahoailrbf7575 [place] [phone]. Madelynlorri Leal Lymphocytes/100 WBC (Bld) 36.1 % Normal 20.5-60.0 [facility] Comment on above: Performed By: #### C BC ####[facility] Ajuotvkxuu9864 [place] [address]Dr. Farhat Leal MANUAL DIFF REQ NO Normal [facility] Comment on above: Performed By: #### C BC ####[facility] Rbudcnxdjd0733 [place] [address]Dr. Farhat Leal MCH (RBC) [Entitic mass] 30.3 pg Normal 25.9-34.0 [facility] Comment on above: Performed By: #### C BC ####[facility] Mfidhbajed3035 [place] [address]Dr. Farhat Leal MCHC (RBC) [Mass/Vol] 34.2 g/dL Normal 29.9-35.2 [facility] Comment on above: Performed By: #### C BC ####[facility] Iicxoyynea3061 [place] [address]Dr. Farhat Leal MCV (RBC) [Entitic vol] 88.6 fL Normal 80.0-94.0 [facility] Comment on above: Performed By: #### C BC ####[facility] Lsduxrpbqt7299 [place] [address]Dr. Farhat Leal MONO # 0.7 103/ul Normal 0.3-0.8 [facility] Comment on above: Performed By: #### C BC ####[facility] Rvdedbnyvy4216 [place] [address]Dr. Farhat Leal Monocytes/100 WBC (Bld) 10.1 % Normal 1.7-12.0 [facility] Comment on above: Performed By: #### C BC ####[facility] Aqzklqkixd0182 [place] [address]Dr. Farhat Leal NEUT # 3.4 103/ul Normal 1.4-6.5 [facility] Comment on above: Performed By: #### C BC ####[facility] Ekxostblxo8135 [place] [address]Dr. Farhat Leal Neutrophils/100 WBC (Bld) 50.2 % Normal 43.0-75.0 [facility] Comment on above: Performed By: #### C BC ####[facility] Ccrvbpvoku6058 [place] [address]Dr. Farhat Elvis Platelet mean volume (Bld) [Entitic vol] 11.8 fL Normal 9.5-13.5 [facility] Comment on above: Performed By: #### C BC ####[facility] Fkthnkystu8016 [place] [address]Dr. Farhat Elvis PLT 193 103/ul Normal 150-450 [facility] Comment on above: Performed By: #### C BC ####[facility] Lnnkdfccog0247 [place] [address]Dr. Farhat Elvis RBC 4.03 106/ul Critically low 4.70-6.10 [facility] Comment on above: Performed By: #### C BC ####[facility] Garvwvxarc7[address] [place], [place] [address]Dr. Farhat Elvis WBC 6.8 103/ul Normal 4.0-11.0 [facility] Comment on above: Performed By: #### C BC ####[facility] Rctnbomojz86[address] [place], [place] [address]DrSkylar Leal PROF 14(COMP METB)on 023 Albumin [Mass/Vol] 2.9 g/dL Critically low 3.4-5.0 [facility] Comment on above: Performed By: #### C MP ####[facility] Ykovxlrjxf72[address] [place], [place] [address]Dr. Farhat Leal Albumin/Globulin [Mass ratio] 0.9 {ratio} Normal [facility] Comment on above: Performed By: #### C MP ####[facility] Rhabmavvhy8[address] [place], [place] [address]Dr. Farhat Leal ALP [Catalytic activity/Vol] 67 U/L Normal 46-116 [facility] Comment on above: Performed By: #### C MP ####[facility] Tzjrthxdzq7277 [place] [address]Dr. Farhat Leal ALT [Catalytic activity/Vol] 15 U/L Critically low 16-63 [facility] Comment on above: Performed By: #### C MP ####[facility] Txloaptyus3083 [place] [address]Dr. Farhat Elvis Anion gap [Moles/Vol] 10.8 mmol/L Normal Th [facility] Comment on above: Performed By: #### C MP ####[facility] Bdgporimnd0119 [place] [address]Dr. Farhat Elvis AST [Catalytic activity/Vol] 23 U/L Normal 15-37 [facility] Comment on above: Performed By: #### C MP ####[facility] Xomyfxpodo8662 [place] [address]Dr. Farhat Elvis Bilirubin [Mass/Vol] 0.6 mg/dL Normal 0.2-1.0 [facility] Comment on above: Performed By: #### C MP ####[facility] Diwdsmixxp3214 [place] [address]Dr. Farhat Elvis Calcium [Mass/Vol] 8.7 mg/dL Normal 8.5-10.1 [facility] Comment on above: Performed By: #### C MP ####[facility] Ssdhekqgcn1589 [place] [address]Dr. Farhat Elvis Chloride [Moles/Vol] 105 mmol/L Normal 98-107 [facility] Comment on above: Performed By: #### C MP ####[facility] Gnhltmokvo2352 [place] [address]Dr. Farhat Leal CO2 [Moles/Vol] 29.5 mmol/L Normal 21.0-32.0 [facility] Comment on above: Performed By: #### C MP ####[facility] Zfbgmenfzq9686 [place] [address]Dr. Farhat Leal Creatinine [Mass/Vol] 1.37 mg/dL Critically high 0.70-1.30 [facility] Comment on above: Performed By: #### C MP ####[facility] Jbvsdxjnko7546 [place] [phone]. Farhat Elvis EGFR-AF JAMAICAN >60 Normal >=60 [facility] Comment on above: Performed By: #### C MP ####[facility] Jkrzkyyyvi0158 [place] [phone]. Farhat Leal EGFR-NON AF J[place]ICAN 50 mL/min/1.73m2 Critically low >=60 [facility] Comment on above: Performed By: #### C MP ####[facility] Lpipclelfg7237 [place] [address]Dr. Farhat Leal Globulin (S) [Mass/Vol] 3.1 g/dL Normal [facility] Comment on above: Performed By: #### C MP ####[facility] Emnkurppgi1631 [place] [phone]. Farhat Leal Glucose [Mass/Vol] 203 mg/dL Critically high 74-106 [facility] Comment on above: Performed By: #### C MP ####[facility] Zvtxaawxnt4844 [place] [phone]. Farhat Leal Potassium [Moles/Vol] 4.3 mmol/L Normal 3.5-5.1 [facility] Comment on above: Performed By: #### C MP ####[facility] Bszijfhfxb0722 [place] [phone]. Farhat Leal Protein [Mass/Vol] 6.0 g/dL Critically low 6.4-8.2 [facility] Comment on above: Performed By: #### C MP ####[facility] Immecbmlen8537 [place] [phone]. Farhat Leal Sodium [Moles/Vol] 141 mmol/L Normal 136-145 [facility] Comment on above: Performed By: #### C MP ####[facility] Qqsdwnffnf4345 [place] [phone]. Farhat Leal Urea nitrogen [Mass/Vol] 65.0 mg/dL Critically high 7.0-18.0 [facility] Comment on above: Performed By: #### C MP ####[facility] Gsnxiadfxd6286 [place] [address]DrSkylar Leal Urea nitrogen/Creatinine [Mass ratio] 47.4 mg/mg Normal [facility] Comment on above: Performed By: #### C MP ####[facility] Movfgjeepd7142 [place] [phone] Leal PROTIMEon 04-15-2022 INR Coag (PPP) [Relative time] 3.88 {INR} Normal [facility] Comment on above: Performed By: #### P T ####[facility] Nmfktsmrgo1362 [place] [address]DrSkylar Leal INR GUIDELINES SEE BELOW Normal [facility] Comment on above: Result Comment: MALINA RED INR: 2.0 - 3.0 CONDITIONS NOT LISTED BELOW 2.5 - 3.5 FOR PROSTHETIC HEART VALVE REPLACEMENT 2.5 - 3.5 RECURRENT THROMBOSIS Performed By: #### P T ####[facility] Exqlzgxtfg2817 [place] [phone]. Farhat Leal PT Coag (PPP) [Time] 38.1 s Critically high 9.0-11.6 [facility] Comment on above: Performed By: #### P T ####[facility] Aqwcokttih5145 [place] [phone]. Farhat Leal Glucose Glucometer (dC) [M ass/Vol]Ordered By: Sadia Aguilar on 04-14-2022 Glucose [Mass/Vol] 162 mg/dL [facility] Comment on above: Random Glucose Refer ence Range is dependent on time and content of last meal. Glucose of more than 200 mg/dL in a nonstressed, ambulatory subject supports the diagnosis of Diabetes Mellitus. Glucose Poct Glucometerson 0 04-14-2022 Commemt1 Glu2: Cleaned Meter Normal [facility] Comment on above: Result Comment: PERF ORMED BY: [facility] [address] [place] [address] PATHOLOGIST CLIN APPLICATION SPECIALIST JOSE F ELLIOTT M.D. Performed By: #### G LULS #### Point of Care testing , Glucose [Mass/Vol] 162 mg/dL Normal [facility] Comment on above: Result Comment: [facility] Glucose Reference Range is dependent on time and content of last meal. Glucose of more than 200 mg/dL in a nonstressed, ambulatory subject supports the diagnosis of Diabetes Mellitus. Performed By: #### G LULS #### Point of Care testing , No Panel InformationOrdered By: Sadia Aguilar on 04-14-2022 Bedside Glucose Comment Glu2: cleaned meter [facility] MAGNESIUMon 04-13-2022 Magnesium [Mass/Vol] 1.7 mg/dL Critically low 1.8-2.4 [facility] [facility] Comment on above: Performed By: #### M HENRI Manzo ####[facility] [address] [place] [address]Dr. Farhat Leal PHOSPHORUSon 04-13-2022 Phosphate [Mass/Vol] 4.8 mg/dL Critically high 2.6-4.7 [facility] Comment on above: Performed By: #### M Anais PHOWard ####[place] [address] [place] [address]Dr. Farhat Leal PROTIMEon 04-13-2022 INR Coag (PPP) [Relative time] 3.16 {INR} Normal [facility] Comment on above: Performed By: #### P T ####[place] [address] [place] [address]DrSkylar Leal INR GUIDELINES SEE BELOW Normal [facility] Comment on above: Result Comment: MALINA RED INR: 2.0 - 3.0 CONDITIONS NOT LISTED BELOW 2.5 - 3.5 FOR PROSTHETIC HEART VALVE REPLACEMENT 2.5 - 3.5 RECURRENT THROMBOSIS Performed By: #### P T ####[place] [address] [place] [address]DrSkylar Leal PT Coag (PPP) [Time] 31.4 s Critically high 9.0-11.6 [facility] Comment on above: Performed By: #### P T ####[facility] [address] [place], [place] [address]Mj. Farhat Leal MAGNESIUMon 03-11-2022 Magnesium [Mass/Vol] 1.6 mg/dL Critically low 1.8-2.4 [facility] Comment on above: Performed By: #### M G, PHOS ####[place] [address] [place], [place] [address]Ex. Farhat Leal PHOSPHORUSon 03-11-2022 Phosphate [Mass/Vol] 5.3 mg/dL Critically high 2.6-4.7 [facility] Comment on above: Performed By: #### M G, PHOS ####[place] [address] [place] [phone]. 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 Patient on mycophenolate mofetil , cellcept and prednisone Mixed hyperlipidemia due to type 2 diabetes mellitus ([facility]) 11/29/2021 Osteomyelitis ([facility]) 11/29/2021 Paroxysmal atrial fibrillation ([facility]) Renal transplant, status post SA node dysfunction ([facility]) s/p pacemaker Type 2 diabetes mellitus with diabetic neuropathy, with long-term current use of insulin ([facility]) 02/24/2002 PAST SURGICAL HISTORY Procedure Laterality Date [...] by mouth daily with lunch. Magic Cup [place] with lunch aspirin, enteric coated (ASPIRIN, ENTERIC COATED) 81 mg EC tablet Take 1 tablet by (more content not included)... Normal [facility] PROTIMEon 02-25-2022 INR Coag (PPP) [Relative time] 1.31 {INR} Normal [facility] Comment on above: Performed By: #### P T ####[place] [address] [place], [place] [address]Dr. Farhat Leal INR GUIDELINES SEE BELOW Normal [facility] Comment on above: Result Comment: MALINA RED INR: 2.0 - 3.0 CONDITIONS NOT LISTED BELOW 2.5 - 3.5 FOR PROSTHETIC HEART VALVE REPLACEMENT 2.5 - 3.5 RECURRENT THROMBOSIS Performed By: #### P T ####[place] [address] [place], [place] [address]Mt. Farhat Leal PT Coag (PPP) [Time] 13.7 s Critically high 9.0-11.6 [facility] Comment on above: Performed By: #### P T ####[place] [address] [place], [place] [address]OgSkylar Hassan 02-19-2022 CNPN Telephone (TXCTGL) ALEX ALMONTE ([id number]) 1945 M TRN Date Time Provider Department 02/19/22 AUGUSTA MEDRANO During your visit today, we recorded the following information about you: Augusta Medrano RN 02/19/2022 11:16 AM Signed Alex Almonte's nursing facility, [facility], called regarding elevated tacrolimus level (23.9). Spoke [...] by mouth daily with lunch. 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/2002 DIABETES UNCOMPL ADULT-UNCONTRLLED [[id number]] 02/24/2002 KIDNEY TRANSPLANT STATUS [Z94.0] 09/07/2003 PROPHYLACTIC IMMUNOTHERAPY [Z29.8] 07/30/2006 HALF-WAY STEROIDS [[id number]] 07/30/2006 VITAMIN D DEFICIENCY NOS [E55.9] 09/07/2008 [...] diabetes mellitus with diabetic peripher*11/29/2021 Atherosclerosis of creek artery of extremity w*11/29/2021 Malnutrition of moderate degree (HCC) [E44.0] 12/01/2021 Dermatitis associated with moisture [L30.8] 12/04/2021 Encounter Status:Closed by AUGUSTA MEDRANO on 02/19/22 [facility] Sonya 02-18-2022 CNPN Telephone (PODCCP) ALEX ALMONTE ([id number]) 1945 M TRN Date Time Provider Department 02/18/22 DEVON MOREIRA PODCCWilfred During your visit today, we recorded the following information about you: Yumikoev Denise 02/18/2022 3:16 PM Signed Reason for call: Mr. Almonte would like to request a sooner appointment with Dr. Peterson than 04/13/2022. Contact Name (if not the patient) Alxe's nurse Home and cell number(Ask for Alex's nurse) [phone] Diagnosis 4 mo f/u wound check Best [...] by mouth daily with lunch. 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/2002 DIABETES UNCOMPL ADULT-UNCONTRLLED [[id number]] 02/24/2002 KIDNEY TRANSPLANT STATUS [Z94.0] 09/07/2003 PROPHYLACTIC IMMUNOTHERAPY [Z29.8] 07/30/2006 WEDGER MACHINE STEROIDS [[id number]] 07/30/2006 VITAMIN D DEFICIENCY NOS [E55.9] 09/07/2008 [...] diabetes mellitus with diabetic peripher*11/29/2021 Atherosclerosis of creek artery of extremity w*11/29/2021 Malnutrition of moderate degree (HCC) [E44.0] 12/01/2021 Dermatitis associated with moisture [L30.8] 12/04/2021 Encounter Status:Closed by CHEASTY (more content not included)... Normal [facility] CNOVon 02-05-2022 CNOV Office Visit (TXCTGL ) ALEX ALMONTE ([id number]) 1945 M TRN Date Time Provider Department 02/05/22 8:20 AM KIDNEY TXP [facility]INIC TXCTGL During your visit today, we recorded the following information about you: Temperature Pulse Blood pressure 96.7 degrees 79/minute 72/42 Asia Pike MD 02/05/2022 9:38 AM Signed [facility] [place] Transplant Follow up Portions of this note [...] snacks patient declined. Indra scale at [facility]: 166.2 lbs per patient. Bed sore on coccyx causing discomfort. Being changed regularly at [facility]- reported to be smaller around but still as deep. Patient not very up to date with medications. Patient brought paperwork from [employer] with all medications being received. Patient unsure if they have been drawing labs regularly. Last Tac from 01/19: 12.9 and K 5.9. In need of current labs. Lab orders will be sent with patient and follows as below: Kidney and Pancreas Transplant Standing Lab Orders [address] [place], [place] [address] February 05, 2022 Alex Almonte 1945 [id number] STANDARD TESTING: Diagnosis Codes: Z94.0 Kidney Transplant [...] AT YOUR LABORATORY FACILITY AND FAX TO [phone]. PLEASE CALL [phone]. Provider: Dr. Pike Current Outpatient Medications Medication [...] Take 237 (more content not included)... Normal [facility] PROTEIN CREATININE RATIOon 1 04-08-2021 Protein/Creatinine (U) [Mass ratio] 0.10 mg/mg <0.15 mg/mg [facility] PROTIMEon 02-05-2022 INR Coag (PPP) [Relative time] 2.90 {INR} Normal [facility] Comment on above: Performed By: #### P T ####[place] [address] [place] [address]Dr. Farhat Lela INR GUIDELINES SEE BELOW Normal [facility] Comment on above: Result Comment: MALINA RED INR: 2.0 - 3.0 CONDITIONS NOT LISTED BELOW 2.5 - 3.5 FOR PROSTHETIC HEART VALVE REPLACEMENT 2.5 - 3.5 RECURRENT THROMBOSIS Performed By: #### P T ####[place] [address] [place], [place] [address]Iy. Farhat Leal PT Coag (PPP) [Time] 29.2 s Critically high 9.0-11.6 [facility] Comment on above: Performed By: #### P T ####[place] [address] [place] [phone]. Farhat Leal Prot/Creat Uron 02-05-2022 Protein/Creatinine (U) [Mass ratio] 0.10 mg/mg Normal <0.15 [facility] Comment on above: Order Comment: Speci men Type: URINE SPECIMENOrdering Facility: [facility] Address: [address] [place] [address] Result Comment: Adul t Proteinuria Categories: <0.15 mg/mg is considered normal to mildly increased 0.15 - 0.50 mg/mg is considered moderately increased >0.50 mg/mg is considered severely increased KDIGO. (2013). KDIGO 2012 Clinical Practice Guideline for the Evaluation and Management of Chronic Kidney Disease. Official Journal of the International Society of Nephrology, 3(1), 1-150. Performed By: #### 2 890-2 ####[facility] LABCLIA [id number] [place] [address] [place] [facility] Protein/Creatinine (U) [Mass ratio]on 02-05-2022 Creatinine (U) [Mass/Vol] 86.9 mg/dL 20.0 - 300.0 mg/dL [facility] Protein (U) [Mass/Vol] 9 mg/dL 0 - 20 mg/dL [facility] Creatinine (U) [Mass/Vol] 86.9 mg/dL Normal 20.0-300.0 [facility] Comment on above: Order Comment: Speci men Type: URINE SPECIMENOrdering Facility: [facility] Address: [address] [place], [place] [address] Performed By: #### 2 890-2 ####[facility] LABCLIA [id number] [place] [id number] [place] Protein (U) [Mass/Vol] 9 mg/dL Normal 0-20 Cl [facility] Comment on above: Order Comment: Speci men Type: URINE SPECIMENOrdering Facility: [facility] Address: [address] [place] [address] Performed By: #### 2 890-2 ####[facility] LABCLIA [id number] [place] [address] [place] URINALYSIS, DIPSTICK ONLYon 02-05-2022 Bilirubin Ql (U) Negative Normal Negative [facility] Comment on above: Order Comment: Speci men Type: URINE SPECIMEN [facility] Address: [address] [place] [address] Performed By: #### U A #### [facility] CLIA [id number] [address] [place] [address] [place] Clarity (Unsp spec) Clear Normal Clear [facility] Comment on above: Order Comment: Speci men Type: URINE SPECIMEN [facility] Address: [address] [place] [address] Performed By: #### U A #### [facility] CLIA [id number] [facility] STATES OF [facility] Color (U) Yellow Normal Yellow [facility] Comment on above: Order Comment: Speci men Type: URINE SPECIMEN [facility] Address: [address] [place], [place] [address] Performed By: #### U A #### [facility] CLIA [id number] [facility] [place] [address] [place] Glucose Test strip (U) [Mass/Vol] 3+ Abnormal Trace, Negative [facility] Comment on above: Order Comment: Speci men Type: URINE SPECIMEN [facility] Address: [address] [place] [address] Performed By: #### U A #### [facility] CLIA [id number] [address] [place] [address] [place] Hemoglobin Ql (U) Negative Normal Negative, Trace [facility] Comment on above: Order Comment: Speci men Type: URINE SPECIMEN [facility] Address: [address] [place] [address] Performed By: #### U A #### [facility] CLIA [id number] [address] [place] [address] [place] Ketones Ql (U) Trace Normal Negative, Trace [facility] Comment on above: Order Comment: Speci men Type: URINE SPECIMEN [facility] Address: [address] [place] [address] Performed By: #### U A #### [facility] CLIA [id number] [address] [place] [address] [place] Leukocyte esterase Test strip Ql (U) Negative Normal Negative, 25 Loraine/mL [facility] Comment on above: Order Comment: Speci men Type: URINE SPECIMEN [facility] Address: [address] [place] [address] Performed By: #### U A #### [facility] CLIA [id number] [address] [place] [address] [place] Nitrite Ql (U) Negative Normal Negative [facility] Comment on above: Order Comment: Speci men Type: URINE SPECIMEN [facility] Address: [address] [place] [address] Performed By: #### U A #### [facility] CLIA [id number] [address] [place] [address] [place] pH (U) 5.5 [pH] Normal 5.0-8.0 [facility] Comment on above: Order Comment: Speci men Type: URINE SPECIMEN [facility] Address: [address] [place], [place] [address] Performed By: #### U A #### [facility] CLIA [id number] [address] [place] [address] [place] Protein (U) [Mass/Vol] Negative Normal Trace , Negative [facility] Comment on above: Order Comment: Speci men Type: URINE SPECIMEN [facility] Address: [address] [place] [address] Performed By: #### U A #### [facility] CLIA [id number] [address] [place] [address] [place] Specific gravity (U) [Rel density] 1.014 Normal 1.005-1.030 [facility] Comment on above: Order Comment: Speci men Type: URINE SPECIMEN [facility] Address: [address] [place] [address] Performed By: #### U A #### [facility] CLIA [id number] [address] [place] [address] [place] Urobilinogen Ql (U) 1+ Abnormal Negative [facility] Comment on above: Order Comment: Speci men Type: URINE SPECIMEN [facility] Address: [address] [place] [address] Performed By: #### U A #### [facility] CLIA [id number] [address] [place] [address] [place] Bilirubin Ql (U) Negative Negative [facility] Clarity (Unsp spec) Clear Clear [facility] Color (U) Yellow Yellow [facility] Glucose Test strip (U) [Mass/Vol] 3+ Abnormal Trace, Negative [facility] Hemoglobin Ql (U) Negative Negative, Trace [facility] Ketones Ql (U) Trace Negative, Trace [facility] Leukocyte esterase Test strip Ql (U) Negative Negative, 25 Loraine/mL [facility] Nitrite Ql (U) Negative Negative [facility] pH (U) 5.5 [pH] 5.0 - 8.0 [facility] Protein (U) [Mass/Vol] Negative Trace , Negative [facility] Specific gravity (U) [Rel density] 1.014 1.005 - 1.030 [facility] Urobilinogen Ql (U) 1+ Abnormal Negative [facility] FK506 (TACROLIMUS) WHOLE BLO ODon 01-29-2022 Tacrolimus (FK506), Blood 11.1 ng/mL Normal 2.0-20.0 [facility] Comment on above: Result Comment: Trou gh (immediately following transplant) 15.0 . Trough (steady state, 2 weeks or more after transplant): 3.0 - 8.0 . Performed by LC-MS/MS technology. Performed By: #### F K506T ####[place] [address] [place], [place] [address]Dr. Farhat Leal PHOSPHORUSon 01-26-2022 Phosphate [Mass/Vol] 4.1 mg/dL Normal 2.6-4.7 [facility] Comment on above: Performed By: #### C CARA PHOS ####[place] [address] [place], [place] [address]Dr. Farhat Leal PROF 14(COMP METB)on 022 Albumin [Mass/Vol] 2.1 g/dL Critically low 3.4-5.0 [facility] Comment on above: Performed By: #### C CARA, PHOS ####[place] [address] [place], [place] [address]Dr. Farhat Leal Albumin/Globulin [Mass ratio] 0.6 {ratio} Normal [facility] Comment on above: Performed By: #### C CARA, PHOS ####[place] [address] [place], [place] [address]Dr. Farhat Leal ALP [Catalytic activity/Vol] 89 U/L Normal 46-116 [facility] Comment on above: Performed By: #### C CARA, PHOS ####[place] [address] [place], [place] [address]Dr. Farhat Leal ALT [Catalytic activity/Vol] 27 U/L Normal 16-63 [facility] Comment on above: Performed By: #### C CARA, PHOS ####[place] [address] [place], [place] [address]Dr. Farhat Leal Anion gap [Moles/Vol] 12.3 mmol/L Normal [facility] Comment on above: Performed By: #### C CARA, PHOS ####[place] [address] [place], [place] [address]Dr. Farhat Leal AST [Catalytic activity/Vol] 53 U/L Critically high 15-37 [facility] Comment on above: Performed By: #### C MP, PHOS ####[place] [address] [place], [place] [address]Dr. Farhat Leal Bilirubin [Mass/Vol] 0.6 mg/dL Normal 0.2-1.0 [facility] Comment on above: Performed By: #### C CARA, PHOS ####[place] [address] [place], [place] [address]Dr. Farhat Leal Calcium [Mass/Vol] 8.0 mg/dL Critically low 8.5-10.1 [facility] Comment on above: Performed By: #### C CARA, PHOS ####[place] [address] [place], [place] [address]Dr. Farhat Leal Chloride [Moles/Vol] 97 mmol/L Critically low 98-107 [facility] Comment on above: Performed By: #### C CARA, PHOS ####[place] [address] [place], [place] [address]Dr. Farhat Leal CO2 [Moles/Vol] 26.6 mmol/L Normal 21.0-32.0 [facility] Comment on above: Performed By: #### C CARA, PHOS ####[place] [address] [place], [place] [address]Dr. Farhat Leal Creatinine [Mass/Vol] 1.03 mg/dL Normal 0.70-1.30 [facility] Comment on above: Performed By: #### C CARA, PHOS ####[place] [address] [place], [place] [address]Dr. Farhat Leal EGFR-AF JAMAICAN >60 Normal >=60 [facility] Comment on above: Performed By: #### C CARA, PHOS ####[place] [address] [place] [phone]. Farhat Leal EGFR-NON AF JAMAICAN >60 Normal >=60 [facility] Comment on above: Performed By: #### C MP, PHOS ####[place] [address] [place] [phone]. Farhat Leal Globulin (S) [Mass/Vol] 3.7 g/dL Normal [facility] Comment on above: Performed By: #### C MP, PHOS ####[place] [address] [place] [address]Dr. Farhat Leal Glucose [Mass/Vol] 287 mg/dL Critically high 74-106 T [facility] Comment on above: Performed By: #### C CARA, PHOS ####[place] [address] [place] [address]Dr. Farhat Leal Potassium [Moles/Vol] 3.9 mmol/L Normal 3.5-5.1 [facility] Comment on above: Performed By: #### C CARA, PHOS ####[place] [address] [place] [address]Dr. Farhat Leal Protein [Mass/Vol] 5.8 g/dL Critically low 6.4-8.2 [facility] Comment on above: Performed By: #### C CARA, PHOS ####[place] [address] [place] [address]Dr. Farhat Leal Sodium [Moles/Vol] 132 mmol/L Critically low 136-145 [facility] Comment on above: Performed By: #### C CARA, PHOS ####[place] [address] [place] [address]Dr. Farhat Leal Urea nitrogen [Mass/Vol] 23.0 mg/dL Critically high 7.0-18.0 [facility] Comment on above: Performed By: #### C CARA, PHOS ####[place] [address] [place] [address]Dr. Farhat Leal Urea nitrogen/Creatinine [Mass ratio] 22.3 mg/mg Normal [facility] Comment on above: Performed By: #### C MP, PHOS ####[place] [address] [place] [phone]. Faraht Leal FK506 (TACROLIMUS) WHOLE BLO ODon 01-21-2022 Tacrolimus (FK506), Blood 12.2 ng/mL Normal 2.0-20.0 [facility] Comment on above: Result Comment: Trou gh (immediately following transplant) 15.0 . Trough (steady state, 2 weeks or more after transplant): 3.0 - 8.0 . Performed by LC-MS/MS technology. Performed By: #### F K506T ####[place] [address] [place] [phone]. Farhat Leal ACID FAST SMEAR AND CXon Acid Fast Culture Negative Normal [facility] Comment on above: Result Comment: No a abdiel fast bacilli isolated after 6 weeks. Performed By: #### A FB ####[place] [address] [place] [phone]. Farhat Leal Acid Fast Smear Negative Normal [facility] Comment on above: Performed By: #### A FB ####[place] [address] [place] [address]Dr. Farhat Leal [employer] Specimen Processing Tissue Grinding Normal [facility] Comment on above: Performed By: #### A FB ####[place] [address] [place] [phone]. Farhat Leal [facility] 01-20-2022 DIAMANTEN Telephone (KIMBERLY) ALEX ALMONTE ([id number]) 1945 M [facility] Date Time Provider Department 01/20/22 VAN OLIVAREZ During your visit today, we recorded the following information about you: Van Olivarez APRN.CNP 01/20/2022 1:14 PM Signed Labs noted from yesterday. Pt is currently residing at [facility], I spoke with the Nurse, the [...] by mouth daily with lunch. 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 Orders Onlyon 01-20-2022 Orders Only [id number] Alex Almonte 1945 Date Provider Department Center 01/20/2022 Francisco Javier-SUSIE HERNANDES [facility] No family history on file Normal [facility] PROF 14(COMP METB)on 022 Albumin [Mass/Vol] 1.9 g/dL Critically low 3.4-5.0 [facility] Comment on above: Performed By: #### C MP ####[place] [address] [place] [address]DrSkylar Leal Albumin/Globulin [Mass ratio] 0.5 {ratio} Normal [facility] Comment on above: Performed By: #### C MP ####[place] [address] [place] [address]DrSkylar Leal ALP [Catalytic activity/Vol] 78 U/L Normal 46-116 [facility] Comment on above: Performed By: #### C MP ####[place] [address] [place] [address]DrSkylar Leal ALT [Catalytic activity/Vol] 22 U/L Normal 16-63 [facility] Comment on above: Performed By: #### C MP ####[place] [address] [place] [address]Dr. Farhat Leal Anion gap [Moles/Vol] 8.0 mmol/L Normal [facility] Comment on above: Performed By: #### C MP ####[place] [address] [place] [address]Dr. Farhat Leal AST [Catalytic activity/Vol] 92 U/L Critically high 15-37 [facility] Comment on above: Performed By: #### C MP ####[place] [address] [place], [place] [address]Dr. Farhat Leal Bilirubin [Mass/Vol] 0.7 mg/dL Normal 0.2-1.0 [facility] Comment on above: Performed By: #### C MP ####[place] Wy[address]isf[address] [place], [place] [address]Dr. Farhat Leal Calcium [Mass/Vol] 7.8 mg/dL Critically low 8.5-10.1 [facility] Comment on above: Performed By: #### C MP ####[place] Fvfcggybww[address] [place], [place] [address]Dr. Farhat Leal Chloride [Moles/Vol] 99 mmol/L Normal 98-107 [facility] Comment on above: Performed By: #### C MP ####[place] R[address]yyvshmm[address] [place], [place] [address]Dr. Farhat Leal CO2 [Moles/Vol] 30.9 mmol/L Normal 21.0-32.0 [facility] Comment on above: Performed By: #### C MP ####[place] Ajzqyyktii[address] [place], [place] [address]Dr. Farhat Leal Creatinine [Mass/Vol] 0.95 mg/dL Normal 0.70-1.30 [facility] Comment on above: Performed By: #### C MP ####[place] [address]qtjyrhx[address] [place], [place] [address]Dr. Madelynlorri Elvis EGFR-AF JAMAICAN >60 Normal >=60 [facility] Comment on above: Performed By: #### C MP ####[place] Xlvqlytrkx[address] [place] [phone]. Farhat Leal EGFR-NON AF JAMAICAN >60 Normal >=60 [facility] Comment on above: Performed By: #### C MP ####[place] Gtjihilqgm65[address] [place] [phone]. Farhat Leal Globulin (S) [Mass/Vol] 3.9 g/dL Normal [facility] Comment on above: Performed By: #### C MP ####[place] X[address]zltgcof[address] [place] [address]Dr. Farhat Leal Glucose [Mass/Vol] 124 mg/dL Critically high 74-106 T [facility] Comment on above: Performed By: #### C MP ####[place] Ofhikpshcx13[address] [place] [address]Dr. Farhat Leal Potassium [Moles/Vol] 5.9 mmol/L Critically high 3.5-5.1 [facility] Comment on above: Performed By: #### C MP ####[place] Iz[address]rwxphx[address] [place], [place] [address]Dr. Farhat Leal Protein [Mass/Vol] 5.8 g/dL Critically low 6.4-8.2 [facility] Comment on above: Performed By: #### C MP ####[place] [address]jabn[address] [place], [place] [address]Dr. Farhat Leal Sodium [Moles/Vol] 132 mmol/L Critically low 136-145 [facility] Comment on above: Performed By: #### C MP ####[place] [address]vf[address] [place] [address]Dr. Farhat Leal Urea nitrogen [Mass/Vol] 18.0 mg/dL Normal 7.0-18.0 [facility] Comment on above: Performed By: #### C MP ####[place] Qwspmnrwss[address] [place] [address]Dr. Farhat Leal Urea nitrogen/Creatinine [Mass ratio] 18.9 mg/mg Normal [facility] Comment on above: Performed By: #### C MP ####[place] Ouvaxmgynj[address] [place] [phone]. Farhat Leal INR (POC)on 01-12-2022 INR Coag (PPP) [Relative time] 2.6 {INR} High 0.8 - 1.2 [facility] Internal Quality Check Acceptable [facility] ACID FAST SMEAR AND CXon Acid Fast Culture Negative Normal The [facility] Comment on above: Result Comment: No a abdiel fast bacilli isolated after 6 weeks. Performed By: #### A FB ####[place] Ep[address]us[address] [place], [place] [address]Dr. Madelynlorri Leal Acid Fast Smear Negative Normal [facility] Comment on above: Performed By: #### A FB ####[place] U[address]alcvdfq[address] [place], [place] [address]Dr. Farhat Leal [employer] Specimen Processing Direct Inoculation Normal [facility] Comment on above: Performed By: #### A FB ####[place] Uszyejzgkt[address] [place], [place] [address]Dr. Madelynlorri Leal ACID FAST SMEAR AND CXon Acid Fast Culture Negative Normal [facility] Comment on above: Result Comment: No a abdiel fast bacilli isolated after 6 weeks. Performed By: #### A FB ####[place] Clonqkydjc[address] [place], [place] [address]Dr. Farhat Leal Acid Fast Smear Negative Normal [facility] Comment on above: Performed By: #### A FB ####[place] Bkxvccyizt[address] [place], [place] [address]Dr. Farhat Leal [employer] Specimen Processing Tissue Grinding Normal [facility] Comment on above: Performed By: #### A FB ####[place] Orpruifyqx[address] [place], [place] [address]Dr. Farhat Leal FUNGAL CULTUREon 01-02-2022 Fungus (Mycology) Culture Final report Normal [facility] Comment on above: Performed By: #### C XFUN ####[place] On[address]zwqpo[address] [place], [place] [address]Dr. Farhat Leal Fungus Stain Final report Normal [facility] Comment on above: Performed By: #### C XFUN ####[place] [address] [place] [address]. Madelynlorri Leal Result 1 Comment Normal [facility] Comment on above: Result Comment: ANNI/ Calcofluor preparation: no fungus observed. Performed By: #### C XFUN ####[place] [address] [place] [address]. Farhat Leal Result Comment: No y east or mold isolated after 4 weeks. FK506 (TACROLIMUS) WHOLE BLO ODon 12-31-2021 Tacrolimus (FK506), Blood 7.7 ng/mL Normal 2.0-20.0 [facility] Comment on above: Result Comment: Trou gh (immediately following transplant) 15.0 . Trough (steady state, 2 weeks or more after transplant): 3.0 - 8.0 . Performed by LC-MS/MS technology. Performed By: #### F K506T ####[place] [address] [place] [address]. Farhat Leal HEMOGRAM AND PLATELon 2021 Hematocrit (Bld) [Volume fraction] 27.1 % Critically low 42.0-54.0 [facility] Comment on above: Performed By: #### H H ####[place] [address] [place] [address]. Farhat Leal Hemoglobin (Bld) [Mass/Vol] 8.7 g/dL Critically low 14.0-18.0 [facility] Comment on above: Performed By: #### H H ####[place] [address] [place] [address]. Farhat Leal MCH (RBC) [Entitic mass] 30.3 pg Normal 25.9-34.0 [facility] Comment on above: Performed By: #### H H ####[place] [address] [place] [address]. Farhat Leal MCHC (RBC) [Mass/Vol] 32.1 g/dL Normal 29.9-35.2 [facility] Comment on above: Performed By: #### H H ####[place] [address] [place] [address]. Farhat Leal MCV (RBC) [Entitic vol] 94.4 fL Critically high 80.0-94.0 [facility] Comment on above: Performed By: #### H H ####[place] Q[address]baqvfq7[address] [place] [address]Dr. Farhat Leal PLT 355 103/ul Normal 150-450 [facility] Comment on above: Performed By: #### H H ####[place] Irox[address]pcll7[address] [place] [address]Dr. Farhat Leal RBC 2.87 106/ul Critically low 4.70-6.10 [facility] Comment on above: Performed By: #### H H ####[place] [address]az[address] [place] [address]Dr. Farhat Leal WBC 6.0 103/ul Normal 4.0-11.0 [facility] Comment on above: Performed By: #### H H ####[place] Lxmwiiijmx19[address] [place] [address]Dr. Farhat Leal PHOSPHORUSon 12-29-2021 Phosphate [Mass/Vol] 2.5 mg/dL Critically low 2.6-4.7 [facility] Comment on above: Performed By: #### P HOS, CMP ####[place] Lqmibvxkuo2164 [place] [address]DrSkylar Farhat Elvis PROF 14(COMP METB)on 022 Albumin [Mass/Vol] 1.7 g/dL Critically low 3.4-5.0 [facility] Comment on above: Performed By: #### P HOS, CMP ####[place] Tivwpsxuvv350[address] [place] [address]Dr. Farhat Leal Albumin/Globulin [Mass ratio] 0.5 {ratio} Normal [facility] Comment on above: Performed By: #### P HOS, CMP ####[place] Tkfcumctor34[address] [place] [address]Dr. Farhat Leal ALP [Catalytic activity/Vol] 78 U/L Normal 46-116 [facility] Comment on above: Performed By: #### P HOS, CMP ####[place] Dnziszcbpl[address] [place] [address]Dr. Farhat Leal ALT [Catalytic activity/Vol] 12 U/L Critically low 16-63 [facility] Comment on above: Performed By: #### P HOS, CMP ####[place] [address] [place], [place] [address]Dr. Farhat Leal Anion gap [Moles/Vol] 5.1 mmol/L Normal [facility] Comment on above: Performed By: #### P HOS, CMP ####[place] L[address]smz[address] [place], [place] [address]Dr. Farhat Leal AST [Catalytic activity/Vol] 22 U/L Normal 15-37 [facility] Comment on above: Performed By: #### P HOS, CMP ####[place] Rvznckwvby[address] [place], [place] [address]Dr. Farhat Leal Bilirubin [Mass/Vol] 0.6 mg/dL Normal 0.2-1.0 [facility] Comment on above: Performed By: #### P HOS, CMP ####[place] J[address]mpikgyu[address] [place], [place] [address]Dr. Farhat Leal Calcium [Mass/Vol] 8.1 mg/dL Critically low 8.5-10.1 [facility] Comment on above: Performed By: #### P HOS, CMP ####[place] H[address]caybdx[address] [place], [place] [address]Dr. Farhat Leal Chloride [Moles/Vol] 100 mmol/L Normal 98-107 [facility] Comment on above: Performed By: #### P HOS, CMP ####[place] [address]neftnw[address] [place], [place] [address]Dr. Farhat Leal CO2 [Moles/Vol] 34.2 mmol/L Critically high 21.0-32.0 [facility] Comment on above: Performed By: #### P HOS, CMP ####[place] [address]qjtaso[address] [place], [place] [address]Dr. Farhat Leal Creatinine [Mass/Vol] 0.92 mg/dL Normal 0.70-1.30 [facility] Comment on above: Performed By: #### P HOS, CMP ####[place] Ljvnfdzaly[address] [place] [phone]. Farhat Leal EGFR-AF JAMAICAN >60 Normal >=60 [facility] Comment on above: Performed By: #### P HOS, CMP ####[place] Gnjrfmfsac43[address] [place] [phone]. Farhat Leal EGFR-NON AF J[place]ICAN >60 Normal >=60 [facility] Comment on above: Performed By: #### P HOS, CMP ####[place] Baekntanqb98[address] [place] [phone]. Farhat Leal Globulin (S) [Mass/Vol] 3.3 g/dL Normal [facility] Comment on above: Performed By: #### P HOS, CMP ####[place] Slrvnlmjvv8824 [place] [address]Dr. Farhat Leal Glucose [Mass/Vol] 116 mg/dL Critically high 74-106 [facility] Comment on above: Performed By: #### P HOS, CMP ####[place] Udpokqpckx0192 [place] [address]Dr. Farhat Leal Potassium [Moles/Vol] 3.3 mmol/L Critically low 3.5-5.1 [facility] Comment on above: Performed By: #### P HOS, CMP ####[place] Cktdcuexuu6947 [place] [phone]. Farhat Leal Protein [Mass/Vol] 5.0 g/dL Critically low 6.4-8.2 [facility] Comment on above: Performed By: #### P HOS, CMP ####[place] Urtfzlukix9041 [place] [address]Dr. Farhat Leal Sodium [Moles/Vol] 136 mmol/L Normal 136-145 [facility] Comment on above: Performed By: #### P HOS, CMP ####[place] Fccfbtkhig9860 [place] [phone]. Farhat Leal Urea nitrogen [Mass/Vol] 14.0 mg/dL Normal 7.0-18.0 [facility] Comment on above: Performed By: #### P HOS, CMP ####[place] S[address]ouomy[address] [place], [place] [address]DrSkylar Leal Urea nitrogen/Creatinine [Mass ratio] 15.2 mg/mg Normal [facility] Comment on above: Performed By: #### P HOS, CMP ####[place] [address]iztmley[address] [place], [place] [address]DrSkylar Leal PROTIMEon 12-29-2021 INR Coag (PPP) [Relative time] 1.26 {INR} Normal [facility] Comment on above: Performed By: #### P T ####[place] Zwtcpfwqrd[address] [place], [place] [address]Dr. Farhat Leal INR GUIDELINES SEE BELOW Normal [facility] Comment on above: Result Comment: MALINA RED INR: 2.0 - 3.0 CONDITIONS NOT LISTED BELOW 2.5 - 3.5 FOR PROSTHETIC HEART VALVE REPLACEMENT 2.5 - 3.5 RECURRENT THROMBOSIS Performed By: #### P T ####[place] Sqipiiwpdu[address] [place], [place] [address]Dr. Farhat Leal PT Coag (PPP) [Time] 13.4 s Critically high 9.0-11.6 [facility] Comment on above: Performed By: #### P T ####[place] Dxidmijkrs[address] [place], [place] [address]Dr. Farhat Leal XR MODIFIED BARIUM SWALLOWon 12-25-2021 XR MODIFIED BARIUM SWALLOW Normal [facility] FUNGAL CULTUREon 12-24-2021 Fungus (Mycology) Culture Final report Normal [facility] Comment on above: Performed By: #### C XFUN ####[place] Issklvnvvf[address] [place], [place] [address]Dr. Farhat Leal Fungus Stain Final report Normal [facility] Comment on above: Performed By: #### C XFUN ####[place] Dr[address]veczwin[address] [place], [place] [address]DrSkylar Leal Result 1 Comment Normal [facility] Comment on above: Result Comment: ANNI/ Calcofluor preparation: no fungus observed. Performed By: #### C XFUN ####[place] Kmzkoodcrr[address] [place], [place] [address]Dr. Farhat Leal Result Comment: No y east or mold isolated after 4 weeks. VANCOMYCIN TROUGHon 12-21-19 VANCOMYCIN TROUGH 14.4 ug/ml Normal 5.0-20.0 [facility] Comment on above: Performed By: #### V ANCT ####[place] Batnmxbxva[address] [place], [place] [address]Dr. Farhat Leal CBC AUTO DIFFon 12-14-2021 BASO # 0.0 103/ul Normal 0.0-0.1 [facility] Comment on above: Performed By: #### C BC ####[place] F[address]ugkwyyb[address] [place], [place] [address]Dr. Farhat Leal Basophils/100 WBC (Bld) 0.2 % Normal 0.2-2.0 [facility] Comment on above: Performed By: #### C BC ####[place] Qe[address]tijzrm[address] [place], [place] [address]Dr. Farhat Leal EO # 0.2 103/ul Normal 0.0-0.7 [facility] Comment on above: Performed By: #### C BC ####[place] B[address]avadrev[address] [place], [place] [address]Dr. Farhat Leal Eosinophils/100 WBC (Bld) 2.1 % Normal 0.9-7.0 [facility] Comment on above: Performed By: #### C BC ####[place] Qlvoktjzbd[address] [place], [place] [address]Dr. Farhat Leal Erythrocyte distribution width (RBC) [Ratio] 18.2 % Critically high 11.0-15.0 [facility] Comment on above: Performed By: #### C BC ####[place] Jgpxvpoaym20[address] [place], [place] [address]DrSkylar Leal Hematocrit (Bld) [Volume fraction] 25.8 % Critically low 42.0-54.0 [facility] Comment on above: Performed By: #### C BC ####[place] Pozlibxdhm[address] [place], [place] [address]Dr. Farhat Leal Hemoglobin (Bld) [Mass/Vol] 8.0 g/dL Critically low 14.0-18.0 [facility] Comment on above: Performed By: #### C BC ####[place] Pphxphvyat7626 [place] [address]DrSkylar Leal IG # 0.08 10e3/ul Critically high 0.00-0.03 [facility] Comment on above: Performed By: #### C BC ####[place] Zpkyocqprd40[address] [place], [place] [address]DrSkylar Leal IG % 0.7 % Critically high 0.0-0.5 [facility] Comment on above: Performed By: #### C BC ####[place] Muswxsuxit[address] [place], [place] [address]DrSkylar Leal LYMPH # 0.9 103/ul Critically low 1.2-3.8 [facility] Comment on above: Performed By: #### C BC ####[place] Cfpubtlrph64[address] [place], [place] [address]DrSkylar Leal Lymphocytes/100 WBC (Bld) 8.7 % Critically low 20.5-60.0 [facility] Comment on above: Performed By: #### C BC ####[place] W[address]soyflmig[address] [place], [place] [address]DrSkylar Leal MANUAL DIFF REQ NO Normal [facility] Comment on above: Performed By: #### C BC ####[place] Bspfmkwfse04[address] [place], [place] [address]DrSkylar Leal MCH (RBC) [Entitic mass] 30.0 pg Normal 25.9-34.0 [facility] Comment on above: Performed By: #### C BC ####[place] [address]vunzqmj[address] [place], [place] [address]DrSkylar Leal MCHC (RBC) [Mass/Vol] 31.0 g/dL Normal 29.9-35.2 [facility] Comment on above: Performed By: #### C BC ####[place] Gqeqdxmwjb97[address] [place], [place] [address]DrSkylar Leal MCV (RBC) [Entitic vol] 96.6 fL Critically high 80.0-94.0 [facility] Comment on above: Performed By: #### C BC ####[place] Xcrrubilkl8102 [place] [phone] Leal MONO # 0.7 103/ul Normal 0.3-0.8 [facility] Comment on above: Performed By: #### C BC ####[place] [address]rrzylzoj[address] [place], [place] [address]DrSkylar Farhat Leal Monocytes/100 WBC (Bld) 6.7 % Normal 1.7-12.0 [facility] Comment on above: Performed By: #### C BC ####[place] T[address]obtojnv[address] [place], [place] [address]DrSkylar Farhat Leal NEUT # 8.8 103/ul Critically high 1.4-6.5 [facility] Comment on above: Performed By: #### C BC ####[place] Arm[address]coasd[address] [place], [place] [address]DrSkylar Farhat Leal Neutrophils/100 WBC (Bld) 81.6 % Critically high 43.0-75.0 [facility] Comment on above: Performed By: #### C BC ####[place] Jpqhumjvmh[address] [place], [place] [address]DrSkylar Farhat Leal Platelet mean volume (Bld) [Entitic vol] 10.5 fL Normal 9.5-13.5 [facility] Comment on above: Performed By: #### C BC ####[place] R[address]tyje[address] [place], [place] [address]Dr. Farhat Leal PLT 285 103/ul Normal 150-450 [facility] Comment on above: Performed By: #### C BC ####[place] H[address]vzwelxm[address] [place], [place] [address]DrSkylar Farhat Elvis RBC 2.67 106/ul Critically low 4.70-6.10 [facility] Comment on above: Performed By: #### C BC ####[place] Pfmqzpoanm[address] [place], [place] [address]DrSkylar Farhat Leal WBC 10.7 103/ul Normal 4.0-11.0 [facility] Comment on above: Performed By: #### C BC ####[place] Elvbdgxbbi9[address] [place] [address]DrSkylar Madelynlorri Leal PROF CHEM 8 (BAS METB)on Anion gap [Moles/Vol] 12.4 mmol/L Normal [facility] Comment on above: Performed By: #### B MP ####[place] Ekpzdsothc4926 [place] [address]Dr. Farhat Leal Calcium [Mass/Vol] 7.8 mg/dL Critically low 8.5-10.1 [facility] Comment on above: Performed By: #### B MP ####[place] Lbvphuhhuh9[address] [place], [place] [address]Dr. Farhat Leal Chloride [Moles/Vol] 102 mmol/L Normal 98-107 [facility] Comment on above: Performed By: #### B MP ####[place] Xowkybexcn[address] [place], [place] [address]Dr. Farhat Leal CO2 [Moles/Vol] 28.1 mmol/L Normal 21.0-32.0 [facility] Comment on above: Performed By: #### B MP ####[place] Wrrwevuvlp[address] [place], [place] [address]Dr. Farhat Leal Creatinine [Mass/Vol] 1.24 mg/dL Normal 0.70-1.30 [facility] Comment on above: Performed By: #### B MP ####[place] Djegbbvbxj8223 [place] [address]Dr. Farhat Leal EGFR-AF JAMAICAN >60 Normal >=60 [facility] Comment on above: Performed By: #### B MP ####[place] Wserhbkimx[address] [place], [place] [address]Dr. Farhat Leal EGFR-NON AF J[place] 57 mL/min/1.73m2 Critically low >=60 [facility] Comment on above: Performed By: #### B MP ####[place] Hrvhrpexso[address] [place], [place] [address]Dr. Farhat Leal Glucose [Mass/Vol] 296 mg/dL Critically high 74-106 T [facility] Comment on above: Performed By: #### B MP ####[place] Sxtxgwvoef[address] [place], [place] [address]Dr. Farhat Leal Potassium [Moles/Vol] 3.5 mmol/L Normal 3.5-5.1 [facility] Comment on above: Performed By: #### B MP ####[place] Nvcwdpcsie[address] [place], [place] [address]Dr. Farhat Leal Sodium [Moles/Vol] 139 mmol/L Normal 136-145 [facility] Comment on above: Performed By: #### B MP ####[place] R[address]obggwkn[address] [place], [place] [address]Dr. Farhat Leal Urea nitrogen [Mass/Vol] 27.0 mg/dL Critically high 7.0-18.0 [facility] Comment on above: Performed By: #### B MP ####[place] C[address]rgdmpmzu[address] [place], [place] [address]Dr. Farhat Leal Urea nitrogen/Creatinine [Mass ratio] 21.8 mg/mg Normal [facility] Comment on above: Performed By: #### B MP ####[place] U[address]hiurqiv[address] [place], [place] [address]Dr. Farhat Leal PROTIMEon 12-14-2021 INR Coag (PPP) [Relative time] 3.36 {INR} Normal [facility] Comment on above: Performed By: #### P T ####[place] [address]ibbbkehg[address] [place], [place] [address]Dr. Farhat Leal INR GUIDELINES SEE BELOW Normal [facility] Comment on above: Result Comment: MALINA RED INR: 2.0 - 3.0 CONDITIONS NOT LISTED BELOW 2.5 - 3.5 FOR PROSTHETIC HEART VALVE REPLACEMENT 2.5 - 3.5 RECURRENT THROMBOSIS Performed By: #### P T ####[place] Q[address]wkvhe[address] [place], [place] [address]Dr. Farhat Leal PT Coag (PPP) [Time] 33.5 s Critically high 9.0-11.6 [facility] Comment on above: Performed By: #### P T ####[place] Ddjilivjvh1744 [place], [place] [address]OvSkylar Leal XR CHEST 1 Von 12-14-2021 XR CHEST 1 V Normal [facility] No Panel Informationon 12-01 BLANK _ [facility] Implant Date 04/22/2012 [facility] CHECKon AMS Duration (ms) 5 of 8 [facility] AMS Fallback Rate (bpm) DDIR [facility] AV Delay Adaptive Paced Minimum (ms) 300 ms [facility] AV Delay Adaptive Rate Maximum (bpm) 130 {beats}/min [facility] AV Delay Adaptive Rate Minimum (bpm) 70 {beats}/min [facility] AV Delay Adaptive Sensed Minimum (ms) 300 ms [facility] AV Delay Paced (ms) 300 ms [facility] AV Delay Sensed (ms) 300 ms [facility] Jaciel LV Pacing Polarity Unknown [facility] Jaciel LV Sensing Polarity Unknown [facility] Jaciel RA Pacing Amplitude (volts) 2.4 V [facility] Jaciel RA Pacing Polarity BI [facility] Jaciel RA Pacing Pulse Width (ms) 0.4 ms [facility] Jaciel RA Sensing Amplitude (mvolts) AUTO [facility] Jaciel RA Sensing Blanking Period (ms) 56 ms [facility] Jaciel RA Sensing Polarity BI [facility] Jaciel RA Sensing Refractory Period (ms) AUTO [facility] Jaciel RV Pacing Amplitude (volts) 3.4 V [facility] Jaciel RV Pacing Polarity BI [facility] Jaciel RV Pacing Pulse Width (ms) 0.4 ms [facility] Jaciel RV Sensing Amplitude (mvolts) AUTO [facility] Jaciel RV Sensing Blanking Period (ms) 30 ms [facility] Jaciel RV Sensing Polarity BI [facility] Jaciel RV Sensing Refractory Period (ms) 250 ms [facility] Hysteresis Rate (bpm) 60 {beats}/min [facility] Lead1 Mfg [employer] [facility] Lead2 Mfg [employer] [facility] Location RA [facility] Location RV [facility] Lower Rate (bpm) 60 {beats}/min [facility] Max Sensor Rate (bmp) 130 {beats}/min [facility] Model [id number] Monika Dominguez [facility] Model [id number] [facility] Model [id number] [facility] Pacemaker Dependent? NO [facility] PM-Device Mfg BIO [facility] PM-PMT Intervention ON [facility] PM-PVC Intervention ON [facility] PM-Rate Modulation Acceleration Reaction 4 s [facility] PM-Rate Modulation Deceleration 0.5 m [facility] PM-Rate Modulation [place] 23 [facility] PM-Rate Modulation Threshold Medium [facility] [facility] RA Bipolar Impedance ohms 448 ohm [facility] Rhythm AF with controlled ventricular rate. [facility] RV Bipolar Impedance ohms 390 ohm [facility] Serial Number [id number] [facility] Serial Number [id number] [facility] Serial Number [id number] [facility] Thresh RA Sensing Amplitude (mvolts) 2.4 mV [facility] Thresh RV Capture Amplitude (volts) 1.8 V [facility] Thresh RV Capture Duration (ms) 0.4 ms [facility] Thresh RV Sensing Amplitude (mvolts) 2.4 mV [facility] Tracking Rate (bpm) 160 {beats}/min [facility] BNPon 11-28-2021 Natriuretic peptide B (Bld) [Mass/Vol] 75183.0 pg/mL Critically high <=1,800.0 [facility] Comment on above: Performed By: #### C MP, BNP, CRP ####[facility] [address] [place], [place] [address]Dr. Farhat Leal CBC AUTO DIFFon 11-28-2021 BASO # 0.0 103/ul Normal 0.0-0.1 [facility] Comment on above: Performed By: #### C BC ####[facility] Nrnoxxys[address] [place], [place] [address]Dr. Farhat Leal Basophils/100 WBC (Bld) 0.3 % Normal 0.2-2.0 [facility] Comment on above: Performed By: #### C BC ####[facility] [address]ci[address] [place] [address]Dr. Farhat eLal EO # 0.1 103/ul Normal 0.0-0.7 [facility] Comment on above: Performed By: #### C BC ####[facility] K[address]ig[address] [place], [place] [address]Dr. Farhat Leal Eosinophils/100 WBC (Bld) 1.0 % Normal 0.9-7.0 [facility] Comment on above: Performed By: #### C BC ####[facility] I[address]nsvqwrwt[address] [place] [address]Dr. Madelynlorri Elvis Erythrocyte distribution width (RBC) [Ratio] 14.0 % Normal 11.0-15.0 [facility] Comment on above: Performed By: #### C BC ####[facility] Utttlcdoir[address] [place] [address]Dr. Farhat Leal Hematocrit (Bld) [Volume fraction] 27.6 % Critically low 42.0-54.0 [facility] Comment on above: Performed By: #### C BC ####[facility] [address]cbgmq[address] [place], [place] [address]Dr. Farhat Leal Hemoglobin (Bld) [Mass/Vol] 9.0 g/dL Critically low 14.0-18.0 [facility] Comment on above: Performed By: #### C BC ####[facility] C[address]ouszwxw[address] [place], [place] [address]Dr. Farhat Leal IG # 0.12 10e3/ul Critically high 0.00-0.03 [facility] Comment on above: Performed By: #### C BC ####[facility] Q[address]xwvgdaz[address] [place], [place] [address]Dr. Farhat Leal IG % 1.0 % Critically high 0.0-0.5 [facility] Comment on above: Performed By: #### C BC ####[facility] Xtzwd[address]duz[address] [place], [place] [address]Dr. Farhat Leal LYMPH # 1.2 103/ul Normal 1.2-3.8 [facility] Comment on above: Performed By: #### C BC ####[facility] Yxucrokyqo[address] [place], [place] [address]Dr. Farhat Leal Lymphocytes/100 WBC (Bld) 9.9 % Critically low 20.5-60.0 [facility] Comment on above: Performed By: #### C BC ####[facility] N[address]kezeuat[address] [place], [place] [address]Dr. Farhat Leal MANUAL DIFF REQ NO Normal [facility] Comment on above: Performed By: #### C BC ####[facility] [address]iiwfyn[address] [place] [address]Dr. Farhat Leal MCH (RBC) [Entitic mass] 30.0 pg Normal 25.9-34.0 [facility] Comment on above: Performed By: #### C BC ####[facility] Gfxbquonpl[address] [place], [place] [address]Dr. Farhat Leal MCHC (RBC) [Mass/Vol] 32.6 g/dL Normal 29.9-35.2 [facility] Comment on above: Performed By: #### C BC ####[facility] Zncvxhiqvd6[address] [place], [place] [address]DrSkylar Leal MCV (RBC) [Entitic vol] 92.0 fL Normal 80.0-94.0 [facility] Comment on above: Performed By: #### C BC ####[facility] Nryhyoyalo[address] [place], [place] [address]DrSkylar Leal MONO # 1.1 103/ul Critically high 0.3-0.8 [facility] Comment on above: Performed By: #### C BC ####[facility] Dmydaxpmov4[address] [place], [place] [address]DrSkylar Leal Monocytes/100 WBC (Bld) 9.3 % Normal 1.7-12.0 [facility] Comment on above: Performed By: #### C BC ####[facility] Ohwydlzpty[address] [place], [place] [address]DrSkylar Leal NEUT # 9.3 103/ul Critically high 1.4-6.5 [facility] Comment on above: Performed By: #### C BC ####[facility] Y[address]pgvdeuv[address] [place], [place] [address]DrSkylar Leal Neutrophils/100 WBC (Bld) 78.5 % Critically high 43.0-75.0 [facility] Comment on above: Performed By: #### C BC ####[facility] Uxvfjgbset[address] [place], [place] [address]DrSkylar Leal Platelet mean volume (Bld) [Entitic vol] 9.6 fL Normal 9.5-13.5 [facility] Comment on above: Performed By: #### C BC ####[facility] [address]vwco[address] [place] [address]Dr. Farhat Leal PLT 357 103/ul Normal 150-450 [facility] Comment on above: Performed By: #### C BC ####[facility] P[address]npimix[address] [place] [phone]. Farhat Leal RBC 3.00 106/ul Critically low 4.70-6.10 [facility] Comment on above: Performed By: #### C BC ####[facility] Tr[address]vculpu27[address] [place] [address]Dr. Farhat Leal WBC 11.8 103/ul Critically high 4.0-11.0 [facility] Comment on above: Performed By: #### C BC ####[facility] Ehpsyoeffh60[address] [place] [address]DrSkylar Leal CRPon 11-28-2021 CRP 20.9 mg/dL Critically high <=1.0 [facility] Comment on above: Performed By: #### C MP, BNP, CRP ####[facility] Nekwuqzjek9[address] [place], [place] [address]Dr. Farhat Leal CULTURE OTHERon 11-28-2021 CULTURE OTHER Normal The [facility] Comment on above: Performed By: #### O THCX ####[facility] G[address]vxfudzr[address] [place], [place] [address]Dr. Farhat Leal CULTURE OTHER Normal The [facility] Comment on above: Performed By: #### O THCX ####[facility] [address]zhrevbn[address] [place] [phone] Leal PROF 14(COMP METB)on 022 Albumin [Mass/Vol] 1.4 g/dL Critically low 3.4-5.0 [facility] Comment on above: Performed By: #### C MP, BNP, CRP ####[facility] U[address]azufhz[address] [place], [place] [address]DrSkylar Leal Albumin/Globulin [Mass ratio] 0.4 {ratio} Normal [facility] Comment on above: Performed By: #### C MP, BNP, CRP ####[facility] [address]rt[address]cswy[address] [place] [address]Dr. Farhat Leal ALP [Catalytic activity/Vol] 82 U/L Normal 46-116 [facility] Comment on above: Performed By: #### C MP, BNP, CRP ####[facility] Uyvvgoxich8[address] [place], [place] [address]Dr. Farhat Elvis ALT [Catalytic activity/Vol] 20 U/L Normal 16-63 [facility] Comment on above: Performed By: #### C MP, BNP, CRP ####[facility] K[address]wwlcopr[address] [place], [place] [address]Dr. Farhat Leal Anion gap [Moles/Vol] 13.0 mmol/L Normal [facility] Comment on above: Performed By: #### C MP, BNP, CRP ####[facility] Wzcofmkyge8632[address] [place], [place] [address]Dr. Farhat Elvis AST [Catalytic activity/Vol] 33 U/L Normal 15-37 [facility] Comment on above: Performed By: #### C MP, BNP, CRP ####[facility] Cqxvcyuttp5[address] [place], [place] [address]Dr. Farhat Leal Bilirubin [Mass/Vol] 0.7 mg/dL Normal 0.2-1.0 [facility] Comment on above: Performed By: #### C MP, BNP, CRP ####[facility] Ebeczntyiq[address] [place], [place] [address]Dr. Farhat Leal Calcium [Mass/Vol] 8.4 mg/dL Critically low 8.5-10.1 [facility] Comment on above: Performed By: #### C MP, BNP, CRP ####[facility] Rvdbttkxzu93[address] [place], [place] [address]Dr. Farhat Leal Chloride [Moles/Vol] 100 mmol/L Normal 98-107 [facility] Comment on above: Performed By: #### C MP, BNP, CRP ####[facility] Qpiwlgkvta39[address] [place] [address]Dr. Farhat Leal CO2 [Moles/Vol] 23.7 mmol/L Normal 21.0-32.0 [facility] Comment on above: Performed By: #### C MP, BNP, CRP ####[facility] Tethttqdzu[address] [place] [address]Dr. Farhat Elvis Creatinine [Mass/Vol] 1.70 mg/dL Critically high 0.70-1.30 [facility] Comment on above: Performed By: #### C MP, BNP, CRP ####[facility] Vxjydbyemy8[address] [place] [address]Dr. Farhat Elvis EGFR-AF J[place]ICAN 48 mL/min/1.73m2 Critically low >=60 [facility] Comment on above: Performed By: #### C MP, BNP, CRP ####[facility] Ugdeisiqvz67[address] [place] [address]Dr. Farhat Leal EGFR-NON AF [place] 39 mL/min/1.73m2 Critically low >=60 [facility] Comment on above: Performed By: #### C MP, BNP, CRP ####[facility] Ctcddfsaae224[address] [place] [address]Dr. Farhat Elvis Globulin (S) [Mass/Vol] 3.6 g/dL Normal [facility] Comment on above: Performed By: #### C MP, BNP, CRP ####[facility] Agvdyttuxx9[address] [place] [address]Dr. Madelynlorri Elvis Glucose [Mass/Vol] 232 mg/dL Critically high 74-106 T [facility] Comment on above: Performed By: #### C MP, BNP, CRP ####[facility] Jacxtaqoea7[address] [place] [address]Dr. Farhat Elvis Potassium [Moles/Vol] 3.7 mmol/L Normal 3.5-5.1 [facility] Comment on above: Performed By: #### C MP, BNP, CRP ####[facility] Chqxxxnaun13[address] [place] [address]Dr. Farhat Leal Protein [Mass/Vol] 5.0 g/dL Critically low 6.4-8.2 [facility] Comment on above: Performed By: #### C MP, BNP, CRP ####[facility] Fvwkcjzdmp[address] [place], [place] [address]Dr. Farhat Leal Sodium [Moles/Vol] 133 mmol/L Critically low 136-145 [facility] Comment on above: Performed By: #### C MP, BNP, CRP ####[facility] Jgkfkilieb[address] [place], [place] [address]Dr. Farhat Leal Urea nitrogen [Mass/Vol] 52.0 mg/dL Critically high 7.0-18.0 [facility] Comment on above: Performed By: #### C MP, BNP, CRP ####[facility] Olkyvdwfjo119[address] [place], [place] [address]Dr. Farhat Leal Urea nitrogen/Creatinine [Mass ratio] 30.6 mg/mg Normal [facility] Comment on above: Performed By: #### C MP, BNP, CRP ####[facility] Ftceayacbs4[address] [place], [place] [address]Dr. Farhat Leal PROTIMEon 11-28-2021 INR Coag (PPP) [Relative time] 1.29 {INR} Normal [facility] Comment on above: Performed By: #### P T ####[facility] X[address]zmug[address] [place], [place] [address]Dr. Farhat Leal INR GUIDELINES SEE BELOW Normal The [facility] Comment on above: Result Comment: MALINA RED INR: 2.0 - 3.0 CONDITIONS NOT LISTED BELOW 2.5 - 3.5 FOR PROSTHETIC HEART VALVE REPLACEMENT 2.5 - 3.5 RECURRENT THROMBOSIS Performed By: #### P T ####[facility] Z[address]xtkfdcuc[address] [place], [place] [address]Dr. Farhat Leal PT Coag (PPP) [Time] 13.7 s Critically high 9.0-11.6 [facility] Comment on above: Performed By: #### P T ####[facility] Pxi[address]kmksh[address] [place], [place] [address]Dr. Farhat Leal [facility] SED RATE 77 mm/hr Critically high <=20 [facility] Comment on above: Performed By: #### S EDR ####[facility] Qqznrlists[address] [place], [place] [address]Dr. Farhat Leal XR CHEST 2 Von 11-28-2021 XR CHEST 2 V Normal [facility] BNPon 11-27-2021 Natriuretic peptide B (Bld) [Mass/Vol] 60667.0 pg/mL Critically high <=1,800.0 [facility] Comment on above: Performed By: #### B TIRE INSPECTOR, CMP, CRP ####[facility] Ibhrkpyjnb[address] [place], [place] [address]Dr. Farhat Leal CBC AUTO DIFFon 11-27-2021 BASO # 0.0 103/ul Normal 0.0-0.1 [facility] Comment on above: Performed By: #### C BC ####[facility] N[address]vdikv[address] [place], [place] [address]Dr. Farhat Leal Basophils/100 WBC (Bld) 0.2 % Normal 0.2-2.0 [facility] Comment on above: Performed By: #### C BC ####[facility] Tnbgodvcji87[address] [place], [place] [address]Dr. Farhat Leal EO # 0.2 103/ul Normal 0.0-0.7 [facility] Comment on above: Performed By: #### C BC ####[facility] Rpwduqcluz5[address] [place], [place] [address]Dr. Farhat Leal Eosinophils/100 WBC (Bld) 1.9 % Normal 0.9-7.0 [facility] Comment on above: Performed By: #### C BC ####[facility] D[address]xtelxd[address] [place], [place] [address]Dr. Farhat Leal Erythrocyte distribution width (RBC) [Ratio] 13.9 % Normal 11.0-15.0 [facility] Comment on above: Performed By: #### C BC ####[facility] Sbeqmwywww[address] [place], [place] [address]Dr. Farhat Leal Hematocrit (Bld) [Volume fraction] 28.7 % Critically low 42.0-54.0 [facility] Comment on above: Performed By: #### C BC ####[facility] A[address]efqsdn[address] [place] [phone]. Farhat Leal Hemoglobin (Bld) [Mass/Vol] 9.3 g/dL Critically low 14.0-18.0 [facility] Comment on above: Performed By: #### C BC ####[facility] Qhwdwhudjs16[address] [place] [address]Dr. Farhat Leal IG # 0.14 10e3/ul Critically high 0.00-0.03 [facility] Comment on above: Performed By: #### C BC ####[facility] Gpdpixpeab4805 [place] [address]Dr. Farhat Leal IG % 1.2 % Critically high 0.0-0.5 [facility] Comment on above: Performed By: #### C BC ####[facility] Ix[address]skjqyef[address] [place], [place] [address]Dr. Farhat Elvis LYMPH # 1.1 103/ul Critically low 1.2-3.8 [facility] Comment on above: Performed By: #### C BC ####[facility] Nfibpxvqnw4[address] [place] [address]Dr. Farhat Leal Lymphocytes/100 WBC (Bld) 9.4 % Critically low 20.5-60.0 [facility] Comment on above: Performed By: #### C BC ####[facility] Tlibcvgagt30[address] [place] [address]Dr. Farhat Leal MANUAL DIFF REQ NO Normal [facility] Comment on above: Performed By: #### C BC ####[facility] Cimwlmvyrf9[address] [place] [address]Dr. Farhat Leal MCH (RBC) [Entitic mass] 29.7 pg Normal 25.9-34.0 [facility] Comment on above: Performed By: #### C BC ####[facility] Sejjplgmui6[address] [place] [address]Dr. Farhat Elvis MCHC (RBC) [Mass/Vol] 32.4 g/dL Normal 29.9-35.2 [facility] Comment on above: Performed By: #### C BC ####[facility] Htyixcdbio86[address] [place] [phone]. Farhat Leal MCV (RBC) [Entitic vol] 91.7 fL Normal 80.0-94.0 [facility] Comment on above: Performed By: #### C BC ####[facility] Ayjgzvnixm37[address] [place] [phone] Leal MONO # 1.1 103/ul Critically high 0.3-0.8 [facility] Comment on above: Performed By: #### C BC ####[facility] Kysppjfsld045[address] [place] [phone]. Farhat Leal Monocytes/100 WBC (Bld) 9.7 % Normal 1.7-12.0 [facility] Comment on above: Performed By: #### C BC ####[facility] [address]ww[address]dlp[address] [place], [place] [address]Dr. Farhat Leal NEUT # 9.2 103/ul Critically high 1.4-6.5 [facility] Comment on above: Performed By: #### C BC ####[facility] Tdfdifhbtd0317 [place] [phone]. Farhat Leal Neutrophils/100 WBC (Bld) 77.6 % Critically high 43.0-75.0 [facility] Comment on above: Performed By: #### C BC ####[facility] Biurdwfwlp8[address] [place] [phone]. Farhat Leal Platelet mean volume (Bld) [Entitic vol] 9.5 fL Normal 9.5-13.5 [facility] Comment on above: Performed By: #### C BC ####[facility] [address] [place], [place] [address]Dr. Farhat Elvis PLT 375 103/ul Normal 150-450 [facility] Comment on above: Performed By: #### C BC ####[facility] Iueaqgfcuf86[address] [place] [phone]. Farhat Elvis RBC 3.13 106/ul Critically low 4.70-6.10 [facility] Comment on above: Performed By: #### C BC ####[facility] Civedcbrtx8415 [place] [phone]. Madelynlorri Leal WBC 11.8 103/ul Critically high 4.0-11.0 [facility] Comment on above: Performed By: #### C BC ####[facility] Ljvexypvwu7[address] [place] [phone]. Farhat Leal CRPon 11-27-2021 CRP 24.5 mg/dL Critically high <=1.0 [facility] Comment on above: Performed By: #### B TIRE INSPECTOR, CMP, CRP ####[facility] Mvgfgcyjno75[address] [place] [address]Dr. Farhat Leal CULTURE OTHERon 11-27-2021 CULTURE OTHER Normal [facility] Comment on above: Performed By: #### O THCX ####[facility] A[address]vpvcikl[address] [place], [place] [address]Dr. Farhat Leal CULTURE OTHER Normal [facility] Comment on above: Performed By: #### O THCX ####[facility] V[address]ofxmpcp[address] [place], [place] [address]Dr. Farhat Leal CULTURE WOUNDon 11-27-2021 CULTURE WOUND Normal The [facility] Comment on above: Performed By: #### W OUNDCX ####[facility] Spppopbfwv2069 [place] [address]Dr. Farhat Leal POINT OF CARE GLUCOSEon 11-15 Glucose [Mass/Vol] 147 mg/dL Critically high 74-106 [facility] Comment on above: Performed By: #### P OCGLUC ####[facility] Tefssknojx[address] [place], [place] [address]Dr. Farhat Leal PROF 14(COMP METB)on 022 Albumin [Mass/Vol] 1.4 g/dL Critically low 3.4-5.0 [facility] Comment on above: Performed By: #### B TIRE INSPECTOR, CMP, CRP ####[facility] Kslrieiaij1435 [place] [address]Dr. Farhat Leal Albumin/Globulin [Mass ratio] 0.4 {ratio} Normal [facility] Comment on above: Performed By: #### B TIRE INSPECTOR, CMP, CRP ####[facility] Vtegcswipm[address] [place], [place] [address]Dr. Farhat Elvis ALP [Catalytic activity/Vol] 82 U/L Normal 46-116 [facility] Comment on above: Performed By: #### B TIRE INSPECTOR, CMP, CRP ####[facility] Btpnnrwpzi84[address] [place], [place] [address]Dr. Farhat Leal ALT [Catalytic activity/Vol] 22 U/L Normal 16-63 [facility] Comment on above: Performed By: #### B TIRE INSPECTOR, CMP, CRP ####[facility] Bwkmuybdgr4[address] [place], [place] [address]Dr. Farhat Leal Anion gap [Moles/Vol] 14.2 mmol/L Normal [facility] Comment on above: Performed By: #### B TIRE INSPECTOR, CMP, CRP ####[facility] Wvvbxpdntw679[address] [place], [place] [address]Dr. Farhat Leal AST [Catalytic activity/Vol] 35 U/L Normal 15-37 [facility] Comment on above: Performed By: #### B TIRE INSPECTOR, CMP, CRP ####[facility] Rtfsutstpz[address] [place], [place] [address]Dr. Farhat Leal Bilirubin [Mass/Vol] 0.7 mg/dL Normal 0.2-1.0 [facility] Comment on above: Performed By: #### B TIRE INSPECTOR, CMP, CRP ####[facility] Ezuasfpimb90[address] [place], [place] [address]Dr. Farhat Leal Calcium [Mass/Vol] 8.2 mg/dL Critically low 8.5-10.1 [facility] Comment on above: Performed By: #### B TIRE INSPECTOR, CMP, CRP ####[facility] Uybdvlajli[address] [place], [place] [address]Dr. Farhat Leal Chloride [Moles/Vol] 99 mmol/L Normal 98-107 [facility] Comment on above: Performed By: #### B TIRE INSPECTOR, CMP, CRP ####[facility] Jisxrbprdq6[address] [place] [address]Dr. Farhat Leal CO2 [Moles/Vol] 22.6 mmol/L Normal 21.0-32.0 [facility] Comment on above: Performed By: #### B TIRE INSPECTOR, CMP, CRP ####[facility] Giglmumxvn7821 [place] [phone]. Farhat Leal Creatinine [Mass/Vol] 1.73 mg/dL Critically high 0.70-1.30 [facility] Comment on above: Performed By: #### B TIRE INSPECTOR, CMP, CRP ####[facility] Qottgzaups6216 [place] [phone]. Farhat Elvis EGFR-AF J[place] 47 mL/min/1.73m2 Critically low >=60 [facility] Comment on above: Performed By: #### B TIRE INSPECTOR, CMP, CRP ####[facility] Qupebozxqo16[address] [place], [place] [address]Dr. Farhat Leal EGFR-NON AF [place] 38 mL/min/1.73m2 Critically low >=60 [facility] Comment on above: Performed By: #### B TIRE INSPECTOR, CMP, CRP ####[facility] Uddybyoflf3450 [place] [address]Dr. Farhat Elvis Globulin (S) [Mass/Vol] 3.7 g/dL Normal [facility] Comment on above: Performed By: #### B TIRE INSPECTOR, CMP, CRP ####[facility] Ufujknvllm04[address] [place] [address]Dr. Madelynlorri Elvis Glucose [Mass/Vol] 220 mg/dL Critically high 74-106 T [facility] Comment on above: Performed By: #### B TIRE INSPECTOR, CMP, CRP ####[facility] Oiofgfaegf1379 [place] [address]Dr. Farhat Leal Potassium [Moles/Vol] 3.8 mmol/L Normal 3.5-5.1 [facility] Comment on above: Performed By: #### B TIRE INSPECTOR, CMP, CRP ####[facility] Urzqmbnaxy9569 [place] [address]Dr. Farhat Elvis Protein [Mass/Vol] 5.1 g/dL Critically low 6.4-8.2 [facility] Comment on above: Performed By: #### B TIRE INSPECTOR, CMP, CRP ####[facility] Kwltbswjpc4127 [place] [address]Dr. Farhat Leal Sodium [Moles/Vol] 132 mmol/L Critically low 136-145 [facility] Comment on above: Performed By: #### B TIRE INSPECTOR, CMP, CRP ####[facility] Sfncksvaho6179 [place] [address]Dr. Farhat Leal Urea nitrogen [Mass/Vol] 49.0 mg/dL Critically high 7.0-18.0 [facility] Comment on above: Performed By: #### B TIRE INSPECTOR, CMP, CRP ####[facility] W[address]qpyuwks[address] [place], [place] [address]Dr. Farhat Leal Urea nitrogen/Creatinine [Mass ratio] 28.3 mg/mg Normal [facility] Comment on above: Performed By: #### B TIRE INSPECTOR, CMP, CRP ####[facility] Onzczbunvb12[address] [place], [place] [address]Dr. Farhat Leal PROTIMEon 11-27-2021 INR Coag (PPP) [Relative time] 1.25 {INR} Normal [facility] Comment on above: Performed By: #### P T ####[facility] Wplnxusxuy7[address] [place], [place] [address]Dr. Farhat Leal INR GUIDELINES SEE BELOW Normal The [facility] Comment on above: Result Comment: MALINA RED INR: 2.0 - 3.0 CONDITIONS NOT LISTED BELOW 2.5 - 3.5 FOR PROSTHETIC HEART VALVE REPLACEMENT 2.5 - 3.5 RECURRENT THROMBOSIS Performed By: #### P T ####[facility] [address]jnvanj[address] [place], [place] [address]Dr. Farhat Leal PT Coag (PPP) [Time] 13.3 s Critically high 9.0-11.6 [facility] Comment on above: Performed By: #### P T ####[facility] Olahnnwqxz95[address] [place], [place] [address]Dr. Farhat Leal [facility] 2021 SED RATE 60 mm/hr Critically high <=20 [facility] Comment on above: Performed By: #### S EDR ####[facility] Rhwccrnwzi4157 [place] [address]Dr. Farhat Leal VANCOMYCIN TROUGHon 11-28-19 22 VANCOMYCIN TROUGH 21.2 ug/ml Critically high 5.0-20.0 Th e [facility] Comment on above: Performed By: #### V ANCT ####[facility] Xcevrddfyn[address] [place], [place] [address]Dr. Farhat Leal XR CHEST 1 Von 11-27-2021 XR CHEST 1 V Normal [facility] BNPon 11-26-2021 Natriuretic peptide B (Bld) [Mass/Vol] 50347.0 pg/mL Critically high <=1,800.0 [facility] Comment on above: Performed By: #### B TIRE INSPECTOR, CRP, CMP ####[facility] Qmeqpwurar50[address] [place], [place] [address]Dr. Farhat Elvis CBC AUTO DIFFon 11-26-2021 BASO # 0.0 103/ul Normal 0.0-0.1 [facility] Comment on above: Performed By: #### C BC ####[facility] Q[address]ianblbuz[address] [place], [place] [address]Dr. Madelynlorri Leal Basophils/100 WBC (Bld) 0.2 % Normal 0.2-2.0 [facility] Comment on above: Performed By: #### C BC ####[facility] Aioeddsyrz65[address] [place], [place] [address]Dr. Farhat Elvis EO # 0.0 103/ul Normal 0.0-0.7 [facility] Comment on above: Performed By: #### C BC ####[facility] Kzzozoeayp94[address] [place], [place] [address]Dr. Madelynlorri Leal Eosinophils/100 WBC (Bld) 0.3 % Critically low 0.9-7.0 [facility] Comment on above: Performed By: #### C BC ####[facility] Stdmvfmcqg[address] [place], [place] [address]Dr. Farhat Leal Erythrocyte distribution width (RBC) [Ratio] 13.9 % Normal 11.0-15.0 The [facility] Comment on above: Performed By: #### C BC ####[facility] Evkqemrqah13[address] [place] [address]DrSkylar Leal Hematocrit (Bld) [Volume fraction] 27.3 % Critically low 42.0-54.0 [facility] Comment on above: Performed By: #### C BC ####[facility] Njbolaqlfl1075 [place] [address]DrSkylar Leal Hemoglobin (Bld) [Mass/Vol] 8.8 g/dL Critically low 14.0-18.0 [facility] Comment on above: Performed By: #### C BC ####[place] [address] [place], [place] [address]DrSkylar Leal IG # 0.17 10e3/ul Critically high 0.00-0.03 [facility] Comment on above: Performed By: #### C BC ####[place] X[address]xjaawll[address] [place], [place] [address]DrSkylar Leal IG % 1.2 % Critically high 0.0-0.5 [facility] Comment on above: Performed By: #### C BC ####[place] Wjdnamvtrb[address] [place], [place] [address]DrSkylar Leal LYMPH # 0.7 103/ul Critically low 1.2-3.8 [facility] Comment on above: Performed By: #### C BC ####[place] Rvutznpfnh[address] [place], [place] [address]DrSkylar Leal Lymphocytes/100 WBC (Bld) 4.8 % Critically low 20.5-60.0 [facility] [place] Comment on above: Performed By: #### C BC ####[place] Coagxrmmvo[address] [place], [place] [address]DrSkylar Leal MANUAL DIFF REQ NO Normal [facility] Comment on above: Performed By: #### C BC ####[place] Hrskfzaymb8263 [place] [address]DrSkylar Leal MCH (RBC) [Entitic mass] 29.9 pg Normal 25.9-34.0 [facility] Comment on above: Performed By: #### C BC ####[place] Ekdtpukgck2089 [place] [address]DrSkylar Leal MCHC (RBC) [Mass/Vol] 32.2 g/dL Normal 29.9-35.2 [facility] [place] Comment on above: Performed By: #### C BC ####[place] Gnftchndwz9081 [place] [address]DrSkylar Leal MCV (RBC) [Entitic vol] 92.9 fL Normal 80.0-94.0 [facility] [place] Comment on above: Performed By: #### C BC ####[place] V[address]pcy[address] [place], [place] [address]DrSkylar Leal MONO # 1.3 103/ul Critically high 0.3-0.8 [facility] Comment on above: Performed By: #### C BC ####[place] Jlsfosdybt[address] [place], [place] [address]DrSkylar Leal Monocytes/100 WBC (Bld) 9.6 % Normal 1.7-12.0 [facility] [place] Comment on above: Performed By: #### C BC ####[place] R[address]omxspp[address] [place], [place] [address]DrSkylar Leal NEUT # 11.4 103/ul Critically high 1.4-6.5 The [facility] Comment on above: Performed By: #### C BC ####[place] Wqfbpbgjng[address] [place], [place] [address]DrSkylar Leal Neutrophils/100 WBC (Bld) 83.9 % Critically high 43.0-75.0 [facility] [place] Comment on above: Performed By: #### C BC ####[place] Fmkoounhdg[address] [place], [place] [address]DrSkylar Leal Platelet mean volume (Bld) [Entitic vol] 9.6 fL Normal 9.5-13.5 [facility] [place] Comment on above: Performed By: #### C BC ####[place] Sufoaxqeho[address] [place], [place] [address]DrSkylar Leal PLT 395 103/ul Normal 150-450 [facility] Comment on above: Performed By: #### C BC ####[place] Skvjvquciw0027 [place] [phone]. Farhat Leal RBC 2.94 106/ul Critically low 4.70-6.10 [facility] Comment on above: Performed By: #### C BC ####[place] Hjtxasoilj5275 [place] [phone]. Farhat Leal WBC 13.6 103/ul Critically high 4.0-11.0 [facility] Comment on above: Performed By: #### C BC ####[place] Vtptkizdhv6738 [place] [phone]. Farhat Elvis CRPon 11-26-2021 CRP [Mass/Vol] mg/L Critically high <=1.0 [facility] Comment on above: Performed By: #### B TIRE INSPECTOR, CRP, CMP ####[place] Zfdeaudpzn6765 [place] [address]Dr. Farhat Elvis PROF 14(COMP METB)on 11-26- 022 Albumin [Mass/Vol] 1.5 g/dL Critically low 3.4-5.0 [facility] Comment on above: Performed By: #### B TIRE INSPECTOR, CRP, CMP ####[place] Qwoftkoxxe4015 [place] [phone]. Farhat Leal Albumin/Globulin [Mass ratio] 0.4 {ratio} Normal [facility] Comment on above: Performed By: #### B TIRE INSPECTOR, CRP, CMP ####[place] Ajuslmbdmh5805 [place] [phone]. Farhat Elvis ALP [Catalytic activity/Vol] 88 U/L Normal 46-116 [facility] [place] Comment on above: Performed By: #### B TIRE INSPECTOR, CRP, CMP ####[place] Rgxrcombbs8467 [place] [address]Dr. Farhat Leal ALT [Catalytic activity/Vol] 29 U/L Normal 16-63 [facility] Comment on above: Performed By: #### B TIRE INSPECTOR, CRP, CMP ####[place] Unlfpntefg5564 [place] [phone]. Farhat Leal Anion gap [Moles/Vol] 13.3 mmol/L Normal [facility] Comment on above: Performed By: #### B TIRE INSPECTOR, CRP, CMP ####[place] Udfpxgvozv4030 [place] [phone]. Farhat Leal AST [Catalytic activity/Vol] 32 U/L Normal 15-37 [facility] Comment on above: Performed By: #### B TIRE INSPECTOR, CRP, CMP ####[place] Axiasmxnzz2225 [place] [address]Dr. Farhat Leal Bilirubin [Mass/Vol] 0.6 mg/dL Normal 0.2-1.0 [facility] Comment on above: Performed By: #### B TIRE INSPECTOR, CRP, CMP ####[place] Wchrahuwuh3375 [place] [address]Dr. Farhat Leal Calcium [Mass/Vol] 8.0 mg/dL Critically low 8.5-10.1 [facility] Comment on above: Performed By: #### B TIRE INSPECTOR, CRP, CMP ####[place] Eeyhgaerwq5942 [place] [address]Dr. Farhat Leal Chloride [Moles/Vol] 98 mmol/L Normal 98-107 [facility] Comment on above: Performed By: #### B TIRE INSPECTOR, CRP, CMP ####[place] Loikvunkjl0360 [place] [phone]. Farhat Leal CO2 [Moles/Vol] 23.7 mmol/L Normal 21.0-32.0 [facility] Comment on above: Performed By: #### B TIRE INSPECTOR, CRP, CMP ####[place] Olkbhlargq6121 [place] [address]Dr. Farhat Leal Creatinine [Mass/Vol] 2.08 mg/dL Critically high 0.70-1.30 [facility] Comment on above: Performed By: #### B TIRE INSPECTOR, CRP, CMP ####[place] Uqkuxqmhft4187 [place] [phone]. Farhat Leal EGFR-AF J[place] 38 mL/min/1.73m2 Critically low >=60 [facility] Comment on above: Performed By: #### B TIRE INSPECTOR, CRP, CMP ####[place] Chkjjhlvka8075 [place] [address]Dr. Farhat Leal EGFR-NON AF [place] 31 mL/min/1.73m2 Critically low >=60 [facility] Comment on above: Performed By: #### B TIRE INSPECTOR, CRP, CMP ####[place] Hjeaqtypss4033 [place] [address]Dr. Farhat Leal Globulin (S) [Mass/Vol] 3.7 g/dL Normal [facility] Comment on above: Performed By: #### B TIRE INSPECTOR, CRP, CMP ####[place] Splkygkhlu0073 [place] [address]Dr. Farhat Leal Glucose [Mass/Vol] 315 mg/dL Critically high 74-106 T [facility] Comment on above: Performed By: #### B TIRE INSPECTOR, CRP, CMP ####[place] Ennmkavygi[address] [place], [place] [address]Dr. Farhat Leal Potassium [Moles/Vol] 4.0 mmol/L Normal 3.5-5.1 [facility] Comment on above: Performed By: #### B TIRE INSPECTOR, CRP, CMP ####[place] V[address]zyavqrz07[address] [place], [place] [address]Dr. Farhat Leal Protein [Mass/Vol] 5.2 g/dL Critically low 6.4-8.2 [facility] Comment on above: Performed By: #### B TIRE INSPECTOR, CRP, CMP ####[place] Gnoboirzfb126[address] [place], [place] [address]Dr. Farhat Leal Sodium [Moles/Vol] 131 mmol/L Critically low 136-145 [facility] Comment on above: Performed By: #### B TIRE INSPECTOR, CRP, CMP ####[place] Recjcoxawn64[address] [place], [place] [address]Dr. Farhat Leal Urea nitrogen [Mass/Vol] 50.0 mg/dL Critically high 7.0-18.0 [facility] Comment on above: Performed By: #### B TIRE INSPECTOR, CRP, CMP ####[place] Utopuamccg7800 [place] [address]Dr. Farhat Leal Urea nitrogen/Creatinine [Mass ratio] 24.0 mg/mg Normal [facility] [place] Comment on above: Performed By: #### B TIRE INSPECTOR, CRP, CMP ####[place] Vxvvpphmci4975 [place] [address]Dr. Farhat Leal PROTIMEon 11-26-2021 INR Coag (PPP) [Relative time] 1.31 {INR} Normal [facility] [place] Comment on above: Performed By: #### P T ####[place] Odoaiulxid8297 [place] [address]Dr. Farhat Leal INR GUIDELINES SEE BELOW Normal [facility] Comment on above: Result Comment: MALINA RED INR: 2.0 - 3.0 CONDITIONS NOT LISTED BELOW 2.5 - 3.5 FOR PROSTHETIC HEART VALVE REPLACEMENT 2.5 - 3.5 RECURRENT THROMBOSIS Performed By: #### P T ####[place] Bumxhjkzcc20[address] [place], [place] [address]Dr. Farhat Leal PT Coag (PPP) [Time] 13.9 s Critically high 9.0-11.6 [facility] [place] Comment on above: Performed By: #### P T ####[place] Pdrvlikknp6[address] [place], [place] [address]Dr. Madelynlorri Leal SED RATE TIMBERERGREN 2021 SED RATE 87 mm/hr Critically high <=20 [facility] Comment on above: Performed By: #### S EDR ####[place] Kqdnhymkhy[address] [place], [place] [address]Dr. Farhat Leal BNPon 11-25-2021 Natriuretic peptide B (Bld) [Mass/Vol] 27735.0 pg/mL Critically high <=1,800.0 [facility] [place] Comment on above: Performed By: #### C MP, BNP, CRP ####[place] Nslrmnezke23[address] [place], [place] [address]Dr. Farhat Leal CBC AUTO DIFFon 11-25-2021 BASO # 0.0 103/ul Normal 0.0-0.1 [facility] Comment on above: Performed By: #### C BC ####[place] Tltbrgghjt2413 [place] [phone]. Farhat Leal Basophils/100 WBC (Bld) 0.4 % Normal 0.2-2.0 [facility] [place] Comment on above: Performed By: #### C BC ####[place] Zibpcxfvml9701 [place] [phone]. Farhat Leal EO # 0.1 103/ul Normal 0.0-0.7 [facility] [place] Comment on above: Performed By: #### C BC ####[place] Sh[address]pa[address]aj[address] [place], [place] [address]Dr. Farhat Leal Eosinophils/100 WBC (Bld) 1.2 % Normal 0.9-7.0 [facility] Comment on above: Performed By: #### C BC ####[place] Zkbbcbyhir[address] [place], [place] [address]Dr. Farhat Leal Erythrocyte distribution width (RBC) [Ratio] 13.7 % Normal 11.0-15.0 [facility] Comment on above: Performed By: #### C BC ####[place] P[address]qqhnkevg[address] [place], [place] [address]Dr. Farhat Leal Hematocrit (Bld) [Volume fraction] 29.6 % Critically low 42.0-54.0 [facility] Comment on above: Performed By: #### C BC ####[place] Yzqhnpiotb[address] [place], [place] [address]Dr. Farhat Leal Hemoglobin (Bld) [Mass/Vol] 9.3 g/dL Critically low 14.0-18.0 [facility] Comment on above: Performed By: #### C BC ####[place] Jgangqqeef[address] [place], [place] [address]Dr. Farhat Leal IG # 0.15 10e3/ul Critically high 0.00-0.03 [facility] Comment on above: Performed By: #### C BC ####[place] Ajooswrmru[address] [place], [place] [address]Dr. Farhat Leal IG % 1.4 % Critically high 0.0-0.5 [facility] Comment on above: Performed By: #### C BC ####[place] Hfadkgqtxd8636 [place] [phone]. Farhat Leal LYMPH # 0.8 103/ul Critically low 1.2-3.8 [facility] Comment on above: Performed By: #### C BC ####[place] Utrrmkeasg7745 [place] [phone]. Farhat Leal Lymphocytes/100 WBC (Bld) 7.3 % Critically low 20.5-60.0 [facility] Comment on above: Performed By: #### C BC ####[place] Avhbvpfqer6037 [place] [phone]. Farhat Leal MANUAL DIFF REQ NO Normal [facility] Comment on above: Performed By: #### C BC ####[place] Iuijladwfz3121 [place] [phone]. Farhat Leal MCH (RBC) [Entitic mass] 29.3 pg Normal 25.9-34.0 [facility] Comment on above: Performed By: #### C BC ####[place] Xqsojbnins1368 [place] [phone]. Farhat Leal MCHC (RBC) [Mass/Vol] 31.4 g/dL Normal 29.9-35.2 [facility] [place] Comment on above: Performed By: #### C BC ####[place] Vewjtxqidm7911 [place] [phone]. Farhat Leal MCV (RBC) [Entitic vol] 93.4 fL Normal 80.0-94.0 [facility] Comment on above: Performed By: #### C BC ####[place] Oxiaaebkcb4092 [place] [phone] Leal MONO # 1.3 103/ul Critically high 0.3-0.8 [facility] Comment on above: Performed By: #### C BC ####[place] Yubhhddath3072 [place] [phone]. Farhat Leal Monocytes/100 WBC (Bld) 12.3 % Critically high 1.7-12.0 [facility] [place] Comment on above: Performed By: #### C BC ####[place] Uaiqarulir6053 [place] [address]Dr. Farhat Leal NEUT # 8.4 103/ul Critically high 1.4-6.5 [facility] Comment on above: Performed By: #### C BC ####[place] Cgyxwpnfhm0836 [place] [address]Dr. Farhat Leal Neutrophils/100 WBC (Bld) 77.4 % Critically high 43.0-75.0 [facility] Comment on above: Performed By: #### C BC ####[place] Lruevrtcly0743 [place] [address]Dr. Farhat Leal Platelet mean volume (Bld) [Entitic vol] 9.8 fL Normal 9.5-13.5 [facility] [place] Comment on above: Performed By: #### C BC ####[place] Xxsivqwqop6660 [place] [address]Dr. Farhat Leal PLT 390 103/ul Normal 150-450 [facility] [place] Comment on above: Performed By: #### C BC ####[place] Glbwvljorn6854 [place] [address]Dr. Farhat Leal RBC 3.17 106/ul Critically low 4.70-6.10 [facility] Comment on above: Performed By: #### C BC ####[place] Ydshlsxuxc5673 [place] [address]Dr. Farhat Leal WBC 10.9 103/ul Normal 4.0-11.0 [facility] [place] Comment on above: Performed By: #### C BC ####[place] Erdrxsjcuz1094 [place] [phone] Farhat Elvis CRPon 11-25-2021 CRP 27.2 mg/dL Critically high <=1.0 [facility] Comment on above: Performed By: #### C MP, BNP, CRP ####[place] Wfyryumkfk3888 [place] [phone] Leal PROF 14(COMP METB)on 10-11-2 022 Albumin [Mass/Vol] 1.5 g/dL Critically low 3.4-5.0 [facility] Comment on above: Performed By: #### C MP, BNP, CRP ####[place] Cslcrklwal9[address] [place], [place] [address]Dr. Farhat Leal Albumin/Globulin [Mass ratio] 0.4 {ratio} Normal [facility] Comment on above: Performed By: #### C MP, BNP, CRP ####[place] Kbvgghebmj[address] [place], [place] [address]Dr. Farhat Leal ALP [Catalytic activity/Vol] 86 U/L Normal 46-116 [facility] Comment on above: Performed By: #### C MP, BNP, CRP ####[place] Jhfcueiria415[address] [place], [place] [address]Dr. Farhat Leal ALT [Catalytic activity/Vol] 34 U/L Normal 16-63 [facility] Comment on above: Performed By: #### C MP, BNP, CRP ####[place] Ybejzxnkgl[address] [place], [place] [address]Dr. Farhat Leal Anion gap [Moles/Vol] 17.8 mmol/L Normal [facility] Comment on above: Performed By: #### C MP, BNP, CRP ####[place] Ncicxukuun9[address] [place], [place] [address]Dr. Farhat Leal AST [Catalytic activity/Vol] 48 U/L Critically high 15-37 [facility] Comment on above: Performed By: #### C MP, BNP, CRP ####[place] Jsktctvepr9[address] [place], [place] [address]Dr. Farhat Leal Bilirubin [Mass/Vol] 0.8 mg/dL Normal 0.2-1.0 [facility] Comment on above: Performed By: #### C MP, BNP, CRP ####[place] Sfhibhuilu15[address] [place], [place] [address]Dr. Farhat Leal Calcium [Mass/Vol] 8.3 mg/dL Critically low 8.5-10.1 [facility] Comment on above: Performed By: #### C MP, BNP, CRP ####[place] Qealcmdaes1744 [place] [address]Dr. Farhat Leal Chloride [Moles/Vol] 97 mmol/L Critically low 98-107 [facility] [place] Comment on above: Performed By: #### C MP, BNP, CRP ####[place] Douzdfrxwr6186 [place] [address]Dr. Farhat Leal CO2 [Moles/Vol] 23.0 mmol/L Normal 21.0-32.0 [facility] Comment on above: Performed By: #### C MP, BNP, CRP ####[place] Kreyqvpyjl3411 [place] [address]Dr. Farhat Leal Creatinine [Mass/Vol] 1.68 mg/dL Critically high 0.70-1.30 [facility] Comment on above: Performed By: #### C MP, BNP, CRP ####[place] Imxguobscn[address] [place], [place] [address]Dr. Farhat Leal EGFR-AF [place] 48 mL/min/1.73m2 Critically low >=60 [facility] Comment on above: Performed By: #### C MP, BNP, CRP ####[place] Ritzexztey36[address] [place], [place] [address]Dr. Farhat Leal EGFR-NON AF [place] 40 mL/min/1.73m2 Critically low >=60 [facility] Comment on above: Performed By: #### C MP, BNP, CRP ####[place] Zckshnrjuh9387[address] [place], [place] [address]Dr. Farhat Leal Globulin (S) [Mass/Vol] 3.9 g/dL Normal [facility] Comment on above: Performed By: #### C MP, BNP, CRP ####[place] Iqbcdoegjg7347 [place] [address]Dr. Farhat Leal Glucose [Mass/Vol] 282 mg/dL Critically high 74-106 T [facility] Comment on above: Performed By: #### C MP, BNP, CRP ####[place] Tnbhbdsfbt8046[address] [place], [place] [address]Dr. Farhat Leal Potassium [Moles/Vol] 4.8 mmol/L Normal 3.5-5.1 [facility] Comment on above: Performed By: #### C MP, BNP, CRP ####[place] Dhekhziuxl7999 [place] [address]Dr. Farhat Leal Protein [Mass/Vol] 5.4 g/dL Critically low 6.4-8.2 [facility] Comment on above: Performed By: #### C MP, BNP, CRP ####[place] Viihlezphf269[address] [place], [place] [address]Dr. Farhat Leal Sodium [Moles/Vol] 133 mmol/L Critically low 136-145 [facility] Comment on above: Performed By: #### C MP, BNP, CRP ####[place] Wdcultcqvg44[address] [place], [place] [address]Dr. Farhat Leal Urea nitrogen [Mass/Vol] 40.0 mg/dL Critically high 7.0-18.0 [facility] Comment on above: Performed By: #### C MP, BNP, CRP ####[place] Edicbexlca2379[address] [place], [place] [address]Dr. Farhat Leal Urea nitrogen/Creatinine [Mass ratio] 23.8 mg/mg Normal [facility] Comment on above: Performed By: #### C MP, BNP, CRP ####[place] Sgaaglfycj44[address] [place], [place] [address]Dr. Farhat Lela PROTIMEon 11-25-2021 INR Coag (PPP) [Relative time] 1.48 {INR} Normal [facility] Comment on above: Performed By: #### P T ####[place] Lzrwdhxqcw9[address] [place], [place] [address]Dr. Farhat Leal INR GUIDELINES SEE BELOW Normal [facility] Comment on above: Result Comment: MALINA RED INR: 2.0 - 3.0 CONDITIONS NOT LISTED BELOW 2.5 - 3.5 FOR PROSTHETIC HEART VALVE REPLACEMENT 2.5 - 3.5 RECURRENT THROMBOSIS Performed By: #### P T ####[place] Qxwkqqdutv7[address] [place], [place] [address]Dr. Farhat Leal PT Coag (PPP) [Time] 15.6 s Critically high 9.0-11.6 [facility] [place] Comment on above: Performed By: #### P T ####[place] Dksvyoqyvr208[address] [place], [place] [address]Dr. Farhat Leal SED RATE WESTERGRENon 2021 SED RATE 76 mm/hr Critically high <=20 [facility] Comment on above: Performed By: #### S EDR ####[place] Rrlmafeiqx88[address] [place], [place] [address]Dr. Farhat Leal BNPon 11-24-2021 Natriuretic peptide B (Bld) [Mass/Vol] 85788.0 pg/mL Critically high <=1,800.0 [facility] [place] Comment on above: Performed By: #### B TIRE INSPECTOR, CMP, CRP ####[place] Bgzedvbrxr[address] [place], [place] [address]Dr. Farhat Leal CBC AUTO DIFFon 11-24-2021 BASO # 0.0 103/ul Normal 0.0-0.1 [facility] Comment on above: Performed By: #### C BC ####[place] X[address]zudytzq[address] [place], [place] [address]Dr. Farhat Leal Basophils/100 WBC (Bld) 0.3 % Normal 0.2-2.0 [facility] [place] Comment on above: Performed By: #### C BC ####[place] Hlipkmjbhc0[address] [place], [place] [address]Dr. Farhat Leal EO # 0.2 103/ul Normal 0.0-0.7 [facility] [place] Comment on above: Performed By: #### C BC ####[place] Jtzogcaxun14[address] [place], [place] [address]Dr. Farhat Leal Eosinophils/100 WBC (Bld) 1.2 % Normal 0.9-7.0 [facility] [place] Comment on above: Performed By: #### C BC ####[place] Cdkykytzrb20[address] [place], [place] [address]Dr. Farhat Leal Erythrocyte distribution width (RBC) [Ratio] 13.5 % Normal 11.0-15.0 [facility] [place] Comment on above: Performed By: #### C BC ####[place] Yxjfeartnw5957 [place] [address]Dr. Farhat Leal Hematocrit (Bld) [Volume fraction] 31.1 % Critically low 42.0-54.0 [facility] Comment on above: Performed By: #### C BC ####[place] Ujdwhdagal3328 [place] [address]Dr. Madelynlorri Leal Hemoglobin (Bld) [Mass/Vol] 10.0 g/dL Critically low 14.0-18.0 [facility] [place] Comment on above: Performed By: #### C BC ####[place] Xqpuksnkuv2997 [place] [address]Dr. Farhat Leal IG # 0.13 10e3/ul Critically high 0.00-0.03 [facility] Comment on above: Performed By: #### C BC ####[place] Rpegkphoeo[address] [place], [place] [address]Dr. Farhat Leal IG % 1.0 % Critically high 0.0-0.5 [facility] Comment on above: Performed By: #### C BC ####[place] Pnwzklgpgi17[address] [place], [place] [address]Dr. Madelynlorri Leal LYMPH # 0.7 103/ul Critically low 1.2-3.8 [facility] Comment on above: Performed By: #### C BC ####[place] Vgrohmaspp4638 [place] [address]Dr. Farhat Leal Lymphocytes/100 WBC (Bld) 4.9 % Critically low 20.5-60.0 [facility] [place] Comment on above: Performed By: #### C BC ####[place] Nvglfdzups8007 [place] [address]Dr. Madelynlorri Leal MANUAL DIFF REQ NO Normal [facility] Comment on above: Performed By: #### C BC ####[place] Kxyozmyinx5390 [place] [address]Dr. Farhat Leal MCH (RBC) [Entitic mass] 29.6 pg Normal 25.9-34.0 [facility] [place] Comment on above: Performed By: #### C BC ####[place] Rkarfiamvu0836 [place] [phone]. Farhat Elvis MCHC (RBC) [Mass/Vol] 32.2 g/dL Normal 29.9-35.2 [facility] [place] Comment on above: Performed By: #### C BC ####[place] Hconrhmdib8872 [place] [phone]. Farhat Leal MCV (RBC) [Entitic vol] 92.0 fL Normal 80.0-94.0 [facility] [place] Comment on above: Performed By: #### C BC ####[place] Oktevyaawi1907 [place] [phone]. Farhat Leal MONO # 1.3 103/ul Critically high 0.3-0.8 [facility] Comment on above: Performed By: #### C BC ####[place] Jwejnhkgeo3370 [place] [address]Dr. Farhat Leal Monocytes/100 WBC (Bld) 9.6 % Normal 1.7-12.0 [facility] [place] Comment on above: Performed By: #### C BC ####[place] W[address]obzjzi[address] [place], [place] [address]Dr. Farhat Leal NEUT # 11.2 103/ul Critically high 1.4-6.5 [facility] Comment on above: Performed By: #### C BC ####[place] Esdf[address]fdwjd[address] [place], [place] [address]Dr. Farhat Leal Neutrophils/100 WBC (Bld) 83.0 % Critically high 43.0-75.0 [facility] [place] Comment on above: Performed By: #### C BC ####[place] Wnybppmnfn[address] [place], [place] [address]Dr. Farhat Leal Platelet mean volume (Bld) [Entitic vol] 9.5 fL Normal 9.5-13.5 [facility] [place] Comment on above: Performed By: #### C BC ####[place] Pfzdfossby[address] [place], [place] [address]Dr. Farhat Leal PLT 395 103/ul Normal 150-450 [facility] [place] Comment on above: Performed By: #### C BC ####[place] Ltopyotvcz1936 [place] [phone]. Farhat Leal RBC 3.38 106/ul Critically low 4.70-6.10 [facility] Comment on above: Performed By: #### C BC ####[place] Ystfxxbnkw5843 [place], [place] [address]Xo. Farhat Leal WBC 13.4 103/ul Critically high 4.0-11.0 [facility] Comment on above: Performed By: #### C BC ####[place] Szlslctlmy3242 [place] [phone]. Farhat Leal CRPon 11-24-2021 CRP 27.8 mg/dL Critically high <=1.0 [facility] Comment on above: Performed By: #### B TIRE INSPECTOR, CMP, CRP ####[place] [address]xfjyhwdlp[address] [place], [place] [address]Dr. Farhat Leal CULTURE ANAEROBICon 11-25-19 22 CULTURE ANAEROBIC Culture Observations : NO GROWTH OF ANAEROBES AT 72 HOURS. [facility] Comment on above: Performed By: #### A NACX ####[place] [address]srccsdfbr[address] [place], [place] [address]Dr. Farhat Leal CULTURE ANAEROBIC Culture Observations : NO GROWTH OF ANAEROBES AT 72 HOURS. [facility] Comment on above: Performed By: #### A NACX ####[place] Sswwbbirft[address] [place], [place] [address]Dr. Farhat Leal CULTURE ANAEROBIC Culture Observations : No growth of anaerobes at 72 hours. [facility] Comment on above: Performed By: #### A NACX ####[place] Ddugosabiu[address] [place], [place] [address]Dr. Farhat Leal CULTURE ANAEROBIC Culture Observations : No growth of anaerobes at 72 hours. [facility] [facility] Comment on above: Performed By: #### A NACX ####[facility] [address] [place], [place] [id number]. Farhat Leal CULTURE URINEon 11-24-2021 CULTURE URINE Culture Observations : NO GROWTH. [facility] Comment on above: Performed By: #### U RCX ####[facility] Tjvvzcfuny[address] [place], [place] [address]Dr. Farhat Leal ECHOCARDIO M/2D COMPLETEon 1 ECHOCARDIO M/2D COMPLETE Normal [facility] URINE PROFILEon 2 Bilirubin Ql (U) Negative Normal NEGATIVE The [facility] Comment on above: Performed By: #### E RUR ####[facility] F[address]ltwnktg[address] [place], [place] [address]Dr. Farhat Leal Clarity (U) CLEAR Normal CLEAR [facility] Comment on above: Performed By: #### E RUR ####[facility] Xnkgmeiuhr[address] [place], [place] [address]Dr. Farhat Leal Color (U) YELLOW Normal YELLOW [facility] Comment on above: Performed By: #### E RUR ####[facility] I[address]lsnd[address] [place], [place] [address]Dr. Farhat Leal ERUAHD A micrscopic examination will be performed if indicated. Normal [facility] Comment on above: Performed By: #### E RUR ####[facility] Aqfwnenzrv[address] [place], [place] [address]Dr. Farhat Leal Glucose Ql (U) Negative Normal NEGATIVE The [facility] Comment on above: Performed By: #### E RUR ####[place] B[address]jdtwqga[address] [place], [place] [address]Dr. Farhat Leal Hemoglobin Ql (U) Negative Normal NEGATIVE The [facility] Comment on above: Performed By: #### E RUR ####[facility] Bbf[address]bxqogw[address] [place], [place] [address]Dr. Farhat Leal Ketones Ql (U) TRACE Abnormal NEGATIVE The [facility] Comment on above: Performed By: #### E RUR ####[facility] Pusfxkasjl3[address] [place], [place] [address]Dr. Farhat Leal LEUKOCYTES Negative Normal NEGATIVE [facility] Comment on above: Performed By: #### E RUR ####[facility] Z[address]khkxlzi[address] [place], [place] [address]Dr. Farhat Leal Nitrite Ql (U) Negative Normal NEGATIVE The [facility] Comment on above: Performed By: #### E RUR ####[facility] Mwf[address]udfna[address] [place], [place] [address]Dr. Farhat Leal pH (U) 5.5 [pH] Normal 5-9 [facility] Comment on above: Performed By: #### E RUR ####[facility] Emgtexzifi[address] [place], [place] [address]Dr. Farhat Leal SPEC GRAVITY 1.015 Normal 1.005-<=1.[address] [place] [address] Comment on above: Performed By: #### E RUR ####[facility] [address]myzhjz[address] [place], [place] [address]Dr. Farhat Leal UA PROTEIN Negative Normal NEGATIVE/ TRACE [facility] Comment on above: Performed By: #### E RUR ####[facility] Mqnhaitqtw[address] [place], [place] [address]Dr. Farhat Leal UR MICRO IND NOT INDICATED Normal [facility] Comment on above: Performed By: #### E RUR ####[place] Zydycdseqn[address] [place], [place] [address]Dr. Farhat Leal Urobilinogen Qn (U) 0.2 {Boyd'U}/dL Normal 0.2 - 1. 0 [facility] Comment on above: Performed By: #### E RUR ####[facility] Fqyjwpfnzo4[address] [place], [place] [address]Dr. Farhat Leal GRAM STAINon 11-24-2021 DIPHTHEROIDS Normal [facility] Comment on above: Performed By: #### G STAIN ####[facility] Hwqorgbmjb[address] [place], [place] [address]Dr. Farhat Leal EPITHELIALS Normal [facility] Comment on above: Performed By: #### G STAIN ####[place] [address]scissvai[address] [place], [place] [address]Dr. Farhat Leal FUNGAL ELEMENTS Normal [facility] Comment on above: Performed By: #### G STAIN ####[place] Heierpodmg[address] [place], [place] [address]Dr. Farhat Leal GRAM NEG BACILLI Normal The [facility] Comment on above: Performed By: #### G STAIN ####[facility] [address] [place] [address]Dr. Farhat Leal GRAM NEG DIPPLOCOCCI Normal [facility] Comment on above: Performed By: #### G STAIN ####[facility] Gn[address]ijlay[address] [place] [address]Dr. Farhat Leal GRAM POS BACILLI Normal The [facility] Comment on above: Performed By: #### G STAIN ####[place] Bqucxgtsno85[address] [place] [address]Dr. Farhat Leal GRAM POSITIVE COCCI FEW Normal [facility] Comment on above: Performed By: #### G STAIN ####[place] E[address]pjgbiis[address] [place], [place] [address]Dr. Farhat Leal GRAM STAIN SOURCE RT ACHILLES TENDON Normal [facility] Comment on above: Performed By: #### G STAIN ####[place] [address]woecna[address] [place], [place] [address]Dr. Farhat Leal GS_DIPTH Normal [facility] Comment on above: Performed By: #### G STAIN ####[place] Owccnjixvx[address] [place], [place] [address]Dr. Farhat Leal WBC RARE Normal [facility] Comment on above: Performed By: #### G STAIN ####[place] Kclikjhdtf[address] [place], [place] [address]Dr. Farhat Leal COMMENTS NO ORGANISMS OBSERVED Normal [facility] Comment on above: Performed By: #### G STAIN ####[place] X[address]ws[address]qttc[address] [place] [address]Dr. Farhat Leal DIPHTHEROIDS Normal [facility] Comment on above: Performed By: #### G STAIN ####[place] [address]ihiix[address] [place], [place] [address]Dr. Farhat Leal EPITHELIALS Normal [facility] Comment on above: Performed By: #### G STAIN ####[place] Hhwbxcjqkp[address] [place], [place] [address]Dr. Farhat Leal FUNGAL ELEMENTS Normal [facility] Comment on above: Performed By: #### G STAIN ####[place] V[address]fuaapqc[address] [place] [address]Dr. Farhat Leal GRAM NEG BACILLI Normal The [facility] Comment on above: Performed By: #### G STAIN ####[place] Ymqpwsychc[address] [place] [address]Dr. Farhat Leal GRAM NEG DIPPLOCOCCI Normal [facility] Comment on above: Performed By: #### G STAIN ####[place] Tw[address]abdkqpt25[address] [place] [address]Dr. Farhat Leal GRAM POS BACILLI Normal The [facility] Comment on above: Performed By: #### G STAIN ####[place] Fqfxkfxsox[address] [place], [place] [address]Dr. Farhat Leal GRAM POSITIVE COCCI Normal The [facility] Comment on above: Performed By: #### G STAIN ####[place] Kljugnnpcx[address] [place], [place] [address]Dr. Farhat Leal GRAM STAIN SOURCE RT CALCANEOUS Normal [facility] Comment on above: Performed By: #### G STAIN ####[place] [address]rivfp[address] [place] [address]Dr. Farhat Leal GS_DIPTH Normal [facility] Comment on above: Performed By: #### G STAIN ####[place] [address]ireumexbm[address] [place] [address]Dr. Farhat Leal WBC RARE Normal [facility] Comment on above: Performed By: #### G STAIN ####[facility] Kw[address]jtgwrkn[address] [place] [address]Dr. Farhat Leal DIPHTHEROIDS Normal [facility] Comment on above: Performed By: #### G STAIN ####[facility] Shxlknsslx9[address] [place] [address]Dr. Farhat Leal EPITHELIALS Normal [facility] Comment on above: Performed By: #### G STAIN ####[place] Fqtlbyxjyv27[address] [place] [address]Dr. Farhat Leal FUNGAL ELEMENTS Normal [facility] Comment on above: Performed By: #### G STAIN ####[place] [address]dpsrvx[address] [place] [address]Dr. Farhat Leal GRAM NEG BACILLI FEW Normal The [facility] Comment on above: Performed By: #### G STAIN ####[place] Vjencdmtzr5[address] [place] [address]Dr. Farhat Leal GRAM NEG DIPPLOCOCCI Normal [facility] Comment on above: Performed By: #### G STAIN ####[place] Usxziifwxg4258 [place] [address]Dr. Farhat Leal GRAM POS BACILLI Normal The [facility] Comment on above: Performed By: #### G STAIN ####[place] [address]thuzszqx02[address] [place] [address]Dr. Farhat Leal GRAM POSITIVE COCCI FEW Normal The [facility] Comment on above: Performed By: #### G STAIN ####[place] Exdkfngxja[address] [place], [place] [address]Dr. Farhat Leal GRAM STAIN SOURCE #2 Rt foot abscess Normal [facility] Comment on above: Performed By: #### G STAIN ####[facility] Gbenmvikkk[address] [place] [address]Dr. Farhat Leal GS_DIPTH Normal [facility] Comment on above: Performed By: #### G STAIN ####[facility] Yxltffkbqj7730 [place] [address]Dr. Farhat Leal WBC RARE Normal [facility] Comment on above: Performed By: #### G STAIN ####[facility] G[address]feccauy6260 [place] [address]Dr. Farhat Leal DIPHTHEROIDS Normal [facility] Comment on above: Performed By: #### G STAIN ####[facility] T[address]jlzrpck39[address] [place] [address]Dr. Farhat Leal EPITHELIALS Normal [facility] Comment on above: Performed By: #### G STAIN ####[facility] Bghpjocrmh96[address] [place] [address]Dr. Farhat Leal FUNGAL ELEMENTS Normal [facility] Comment on above: Performed By: #### G STAIN ####[place] Yloaybltch[address]135 [place] [address]Dr. Farhat Leal GRAM NEG BACILLI FEW Normal The [facility] Comment on above: Performed By: #### G STAIN ####[place] Xptmciznqs9675 [place] [address]Dr. Farhat Leal GRAM NEG DIPPLOCOCCI Normal [facility] Comment on above: Performed By: #### G STAIN ####[facility] Xrromymaki4[address] [place] [address]Dr. Farhat Leal GRAM POS BACILLI Normal The [facility] Comment on above: Performed By: #### G STAIN ####[place] Srftitavyq7[address] [place], [place] [address]Dr. Farhat Leal GRAM POSITIVE COCCI FEW Normal The [facility] Comment on above: Performed By: #### G STAIN ####[place] Dbqurglsfz6[address] [place], [place] [address]Dr. Farhat Leal GRAM STAIN SOURCE #1 Rt foot abscess Normal [facility] Comment on above: Performed By: #### G STAIN ####[facility] Kgzkkkfxpy22[address] [place], [place] [address]Dr. Farhat Leal GS_DIPTH Normal [facility] Comment on above: Performed By: #### G STAIN ####[facility] Orzskzgtum[address] [place], [place] [address]Dr. Farhat Leal WBC NONE SEEN Normal [facility] Comment on above: Performed By: #### G STAIN ####[facility] Yjsmriqxlq[address] [place], [place] [address]Dr. Farhat Leal POINT OF CARE GLUCOSEon 11-15 0 Glucose [Mass/Vol] 331 mg/dL Critically high 74-106 [facility] Comment on above: Performed By: #### P OCGLUC ####[place] Bmladpubhb[address] [place], [place] [address]Dr. Farhat Leal Glucose [Mass/Vol] 236 mg/dL Critically high 74-106 [facility] Comment on above: Performed By: #### P OCGLUC ####[place] Svpxrpualq[address] [place], [place] [address]Dr. Farhat Leal PROF 14(COMP METB)on 022 Albumin [Mass/Vol] 1.6 g/dL Critically low 3.4-5.0 [facility] Comment on above: Performed By: #### B TIRE INSPECTOR, CMP, CRP ####[facility] Bmycjajcjn2905 [place] [address]Dr. Farhat Leal Albumin/Globulin [Mass ratio] 0.4 {ratio} Normal [facility] Comment on above: Performed By: #### B TIRE INSPECTOR, CMP, CRP ####[facility] Avepwvxves5307 [place] [address]Dr. Farhat Leal ALP [Catalytic activity/Vol] 94 U/L Normal 46-116 [facility] Comment on above: Performed By: #### B TIRE INSPECTOR, CMP, CRP ####[facility] Ylknnojcmg2023 [place] [address]Dr. Farhat Leal ALT [Catalytic activity/Vol] 49 U/L Normal 16-63 [facility] Comment on above: Performed By: #### B TIRE INSPECTOR, CMP, CRP ####[facility] Mzqkxdbyry[address] [place], [place] [address]Dr. Farhat Leal Anion gap [Moles/Vol] 12.5 mmol/L Normal [facility] Comment on above: Performed By: #### B TIRE INSPECTOR, CMP, CRP ####[place] Ukkfxqmwgc13[address] [place], [place] [address]Dr. Farhat Leal AST [Catalytic activity/Vol] 102 U/L Critically high 15-37 [facility] Comment on above: Performed By: #### B TIRE INSPECTOR, CMP, CRP ####[facility] Xhsrubppvb0529 [place] [address]Dr. Farhat Leal Bilirubin [Mass/Vol] 0.8 mg/dL Normal 0.2-1.0 [facility] Comment on above: Performed By: #### B TIRE INSPECTOR, CMP, CRP ####[facility] Zstuwiygow[address] [place], [place] [address]Dr. Farhat Leal Calcium [Mass/Vol] 8.4 mg/dL Critically low 8.5-10.1 [facility] Comment on above: Performed By: #### B TIRE INSPECTOR, CMP, CRP ####[facility] Lzxpumwliv8617 [place] [phone]. Farhat Leal Chloride [Moles/Vol] 96 mmol/L Critically low 98-107 [facility] Comment on above: Performed By: #### B TIRE INSPECTOR, CMP, CRP ####[facility] Utwcdcwjua0880 [place] [address]Dr. Farhat Leal CO2 [Moles/Vol] 24.8 mmol/L Normal 21.0-32.0 [facility] Comment on above: Performed By: #### B TIRE INSPECTOR, CMP, CRP ####[facility] Slujsskjuf37[address] [place] [address]Dr. Farhat Leal Creatinine [Mass/Vol] 1.36 mg/dL Critically high 0.70-1.30 [facility] Comment on above: Performed By: #### B TIRE INSPECTOR, CMP, CRP ####[place] Bmbfxhwecv[address] [place], [place] [address]Dr. Farhat Leal EGFR-AF JAMAICAN >60 Normal >=60 [facility] Comment on above: Performed By: #### B TIRE INSPECTOR, CMP, CRP ####[place] [address]otxinx[address] [place], [place] [address]Dr. Farhat Leal EGFR-NON AF J[place] 51 mL/min/1.73m2 Critically low >=60 [facility] Comment on above: Performed By: #### B TIRE INSPECTOR, CMP, CRP ####[facility] Tswlxpcqif9556 [place] [address]Dr. Farhat Leal Globulin (S) [Mass/Vol] 4.1 g/dL Normal [facility] Comment on above: Performed By: #### B TIRE INSPECTOR, CMP, CRP ####[facility] Akephljpxz9513 [place] [address]Dr. Farhat Leal Glucose [Mass/Vol] 204 mg/dL Critically high 74-106 T [facility] Comment on above: Performed By: #### B TIRE INSPECTOR, CMP, CRP ####[facility] Eekztfadiu9052 [place] [address]Dr. Farhat Leal Potassium [Moles/Vol] 4.3 mmol/L Normal 3.5-5.1 [facility] Comment on above: Performed By: #### B TIRE INSPECTOR, CMP, CRP ####[facility] Ledfpeckvk5195 [place] [address]Dr. Farhat Leal Protein [Mass/Vol] 5.7 g/dL Critically low 6.4-8.2 [facility] Comment on above: Performed By: #### B TIRE INSPECTOR, CMP, CRP ####[place] Shjccylgqd7[address] [place], [place] [address]Dr. Farhat Leal Sodium [Moles/Vol] 129 mmol/L Critically low 136-145 [facility] Comment on above: Performed By: #### B TIRE INSPECTOR, CMP, CRP ####[place] Ncnckdbqzb[address] [place], [place] [address]Dr. Farhat Leal Urea nitrogen [Mass/Vol] 41.0 mg/dL Critically high 7.0-18.0 [facility] Comment on above: Performed By: #### B TIRE INSPECTOR, CMP, CRP ####[facility] Qivommtunq5043[address] [place], [place] [address]Dr. Farhat Leal Urea nitrogen/Creatinine [Mass ratio] 30.1 mg/mg Normal [facility] Comment on above: Performed By: #### B TIRE INSPECTOR, CMP, CRP ####[place] Omufhpccty15[address] [place], [place] [address]Dr. Farhat Leal PROTIMEon 11-24-2021 INR Coag (PPP) [Relative time] 2.20 {INR} Normal [facility] Comment on above: Performed By: #### P T ####[place] Bujsqhadfn[address] [place], [place] [address]Dr. Farhat Leal INR GUIDELINES SEE BELOW Normal The [facility] Comment on above: Result Comment: MALINA RED INR: 2.0 - 3.0 CONDITIONS NOT LISTED BELOW 2.5 - 3.5 FOR PROSTHETIC HEART VALVE REPLACEMENT 2.5 - 3.5 RECURRENT THROMBOSIS Performed By: #### P T ####[facility] Sfezclidel[address] [place], [place] [address]Dr. Farhat Leal PT Coag (PPP) [Time] 22.6 s Critically high 9.0-11.6 [facility] Comment on above: Performed By: #### P T ####[facility] Lrejxkrqnv7468 [place] [phone]. Farhat Elvis [facility] 80 mm/hr Critically high <=20 [facility] Comment on above: Performed By: #### S EDR ####[place] Gmwqqjmzox[address] [place], [place] [address]Dr. Farhat Elvis BLOOD CULTURE ID PANELon A. baumannii Not detected Normal NOT DETECTED The [facility] Comment on above: Performed By: #### B CID2 ####[place] Amhstzwoic9[address] [place], [place] [address]Dr. Farhat Elvis Bacteriodes fragilis Not detected Normal NOT DETECTED [facility] Comment on above: Performed By: #### B CID2 ####[facility] Remcrduust[address] [place], [place] [address]Dr. Farhat Elvis BCID CONTROLS PASSED Normal The [facility] Comment on above: Performed By: #### B CID2 ####[place] Xubhwvzepi[address] [place], [place] [address]Dr. Farhat Leal BCIDBTHD BLOOD CULTURE BOTTLE INFORMATION Normal [facility] Comment on above: Performed By: #### B CID2 ####[facility] Zkickasaxk0197 [place] [phone]. Farhat Leal BCIDHD1 ANTIMICROBIAL RESISTANCE GENES Normal [facility] Comment on above: Performed By: #### B CID2 ####[facility] Yqgwoppidf[address] [place], [place] [address]Dr. Madelynlorri Leal BCIDHD2 SEE BELOW Normal [facility] Comment on above: Result Comment: Note : Antimicrobial resitance can occur via multiple mechanisms. A Not Detected result for the [employer] antomicrobial resistance gene assays does not indicate antimicrobial susceptibility. Subculturing is required for species identification and susceptibility testing of isolates. Performed By: #### B CID2 ####[place] Rfmpktlvpc[address] [place], [place] [address]Dr. Farhat Elvis BCIDHD3 Positive Normal [facility] Comment on above: Performed By: #### B CID2 ####[place] Zikapxobqd6040 [place] [address]Dr. Farhat Leal BCIDHD4 Negative Normal [facility] Comment on above: Performed By: #### B CID2 ####[facility] Fchohvedeg8585 [place] [address]Dr. Farhat Leal BCIDHD5 YEAST Normal [facility] Comment on above: Performed By: #### B CID2 ####[facility] Rwjhhzgxcn[address] [place], [place] [address]Dr. Farhat Leal Bottle Set: Set 1 Normal [facility] Comment on above: Performed By: #### B CID2 ####[facility] Xaixgqggqt656[address] [place], [place] [address]Dr. Farhat Leal Bottle: Aerobic Normal [facility] Comment on above: Performed By: #### B CID2 ####[facility] Bchvuzotcx[address] [place], [place] [address]Dr. Farhat Leal C. neoformans/gattii Not detected Normal NOT DETECTED [facility] Comment on above: Performed By: #### B CID2 ####[facility] Tqnoikgqjp74[address] [place], [place] [address]Dr. Farhat [facility] Disha albicans Not detected Normal NOT DETECTED [facility] Comment on above: Performed By: #### B CID2 ####[place] Gmaygjxiqp[address] [place], [place] [address]Dr. Farhat Leal Disha auris Not detected Normal NOT DETECTED The [facility] Comment on above: Performed By: #### B CID2 ####[place] Xkjowtfgmg0[address] [place], [place] [address]Dr. Farhat Leal Disha glabrata Not detected Normal NOT DETECTED [facility] Comment on above: Performed By: #### B CID2 ####[place] Gbqmetmwnp[address] [place], [place] [address]Dr. Farhat Leal Disha Krusei Not detected Normal NOT DETECTED The [facility] Comment on above: Performed By: #### B CID2 ####[place] Yafcmtlxal7953 [place] [address]Dr. Madelynlorri Elvis Disha Parapsilosis Not detected Normal NOT DETECTED [facility] Comment on above: Performed By: #### B CID2 ####[facility] Jhggyhxjcf4[address] [place], [place] [address]Dr. Farhat Elvis Disha Tropicalis Not detected Normal NOT DETECTED [facility] Comment on above: Performed By: #### B CID2 ####[place] Zicgijntyk46[address] [place], [place] [address]Dr. Farhat Leal CTX-M Resistant Gene Not Applicable Normal NOT DETECTE D [facility] Comment on above: Performed By: #### B CID2 ####[place] Qkwxgrqwzx49[address] [place], [place] [address]Dr. Farhat Leal E. Cloacae complex Not detected Normal NOT DETECTED [facility] Comment on above: Performed By: #### B CID2 ####[place] Xenvrywbvl[address] [place], [place] [address]Dr. Farhat Leal E. faecalis Not detected Normal NOT DETECTED [facility] Comment on above: Performed By: #### B CID2 ####[place] Lxwwhnpxdx[address] [place], [place] [address]Dr. Farhat Leal E. faecium Not detected Normal NOT DETECTED The [facility] Comment on above: Performed By: #### B CID2 ####[place] Pcnjfistbd6835[address] [place], [place] [address]Dr. Farhat Leal Enterobacteriaceae Not detected Normal NOT DETECTED [facility] Comment on above: Performed By: #### B CID2 ####[place] Rsdbewqblq8664[address] [place], [place] [address]Dr. Farhat Leal Escherichia coli Not detected Normal NOT DETECTED [facility] Comment on above: Performed By: #### B CID2 ####[place] Gnwcjpixoo7726[address] [place], [place] [address]Dr. Farhat Leal H. influenzae Not detected Normal NOT DETECTED The [facility] Comment on above: Performed By: #### B CID2 ####[place] Tnkwgkswap5[address] [place], [place] [address]Dr. Farhat Leal IMP Resistant Gene Not Applicable Normal NOT DETECTED [facility] Comment on above: Performed By: #### B CID2 ####[place] Tvlxgatzgd3811 [place] [address]Dr. Farhat Leal K. oxytoca Not detected Normal NOT DETECTED The [facility] Comment on above: Performed By: #### B CID2 ####[place] Dgvwqrpgoy0615 [place] [address]Dr. Farhat Leal K. pneumoniae Not detected Normal NOT DETECTED The [facility] Comment on above: Performed By: #### B CID2 ####[place] Hvmfobamtk40[address] [place], [place] [address]Dr. Farhat Leal Klebsiella aerogenes Not detected Normal NOT DETECTED [facility] Comment on above: Performed By: #### B CID2 ####[place] Aqekaapohd[address] [place], [place] [address]Dr. Farhat Leal KPC Resistant Gene Not Applicable Normal NOT DETECTED [facility] Comment on above: Performed By: #### B CID2 ####[place] Jtzvombcze9[address] [place], [place] [address]Dr. Farhat Leal List. monocytogenes Not detected Normal NOT DETECTED [facility] Comment on above: Performed By: #### B CID2 ####[place] Hoctxwwetd359[address] [place], [place] [address]Dr. Farhat Leal Mcr-1 Resistant Gene Not Applicable Normal NOT DETECTE D [facility] Comment on above: Performed By: #### B CID2 ####[place] Ltphczfdyr4765[address] [place], [place] [address]Dr. Madelynlan Elvis mecA/C Not Applicable Normal NOT DETECTED The [facility] Comment on above: Performed By: #### B CID2 ####[place] Lbatyzmggq4[address] [place], [place] [address]Dr. Farhat Leal mecA/C MREJ Detected Abnormal NOT DETECTED The [facility] Comment on above: Performed By: #### B CID2 ####[place] Mjaisrwoto6663[address] [place], [place] [address]Dr. Farhat Leal N. meningitidis Not detected Normal NOT DETECTED The [facility] Comment on above: Performed By: #### B CID2 ####[place] Atccyeeavd3019 [place] [address]Dr. Farhat Leal NDM Resistant Gene Not Applicable Normal NOT DETECTED [facility] Comment on above: Performed By: #### B CID2 ####[place] Gbtjdndmbg9069 [place] [address]Dr. Farhat Leal Oxa-48-like Not Applicable Normal NOT DETECTED The [facility] Comment on above: Performed By: #### B CID2 ####[place] Uvyekbshnb42[address] [place], [place] [address]Dr. Farhat Leal Proteus Not detected Normal NOT DETECTED The [facility] Comment on above: Performed By: #### B CID2 ####[place] Fdtkmhscep34[address] [place], [place] [address]Dr. Farhat Leal Pseud. aeruginosa Not detected Normal NOT DETECTED [facility] Comment on above: Performed By: #### B CID2 ####[place] Chhzxeyass6[address] [place], [place] [address]Dr. Farhat Leal S. maltophilia Not detected Normal NOT DETECTED The [facility] Comment on above: Performed By: #### B CID2 ####[place] Ohufrvpocs8[address] [place], [place] [address]Dr. Farhat Leal Salmonella Not detected Normal NOT DETECTED [facility] Comment on above: Performed By: #### B CID2 ####[place] [address]xlsd[address] [place], [place] [address]Dr. Farhat Leal Seratia marcescens Not detected Normal NOT DETECTED [facility] Comment on above: Performed By: #### B CID2 ####[place] Qzndoexjjh[address] [place], [place] [address]Dr. Farhat Leal Site: Rt Hand Normal The [place] Comment on above: Performed By: #### B CID2 ####[place] Nsfyaxbmlt[address] [place], [place] [address]Dr. Farhat Leal Staph. aureus Detected Abnormal NOT DETECTED [facility] Comment on above: Performed By: #### B CID2 ####[place] Qxjcohmuyr[address] [place], [place] [id number]. Farhat Leal Staph. epidermidis Not detected Normal NOT DETECTED [facility] Comment on above: Performed By: #### B CID2 ####[place] Qpzzfelleq75[address] [place], [place] [address]Dr. Farhat Leal Staph. lugdunensis Not detected Normal NOT DETECTED [facility] Comment on above: Performed By: #### B CID2 ####[place] Drbiupfwxw[address] [place], [place] [address]Dr. Farhat Leal Staphylococcus Detected Abnormal NOT DETECTED The [facility] Comment on above: Performed By: #### B CID2 ####[place] Hutvyjzovw[address] [place], [place] [address]Dr. Farhat Leal Strep. agalactiae Not detected Normal NOT DETECTED The [place] Comment on above: Performed By: #### B CID2 ####[place] Rxtlcrreip[address] [place], [place] [address]Dr. Farhat Leal Strep. pneumoniae Not detected Normal NOT DETECTED The [place] Comment on above: Performed By: #### B CID2 ####[place] Vdwrnwfdbj[address] [place], [place] [address]Dr. Farhat Elvis Strep. pyogenes Not detected Normal NOT DETECTED The [facility] Comment on above: Performed By: #### B CID2 ####[place] Pwuallwgez[address] [place], [place] [address]Dr. Farhat Leal Streptococcus Not detected Normal NOT DETECTED The [facility] Comment on above: Performed By: #### B CID2 ####[place] Pjwjqwrtju[address] [place], [place] [address]Dr. Farhat Leal Teodoro/B Resist. Gene Not Applicable Normal NOT DETECTED The [place] Comment on above: Performed By: #### B CID2 ####[place] Zxvfkantpw4[address] [place], [place] [address]Dr. Farhat Leal VIM Resistant Gene Not Applicable Normal NOT DETECTED The [place] Comment on above: Performed By: #### B CID2 ####[place] [address]me[address]vsm[address] [place] [address]Dr. Farhat Leal BNPon 11-23-2021 Natriuretic peptide B (Bld) [Mass/Vol] 17399.0 pg/mL Critically high <=1,800.0 [facility] Comment on above: Performed By: #### C MP, CMADM, BNP ####[place] Dgikclcbsa36[address] [place] [address]Dr. Farhat Leal CARDIAC AMANDA ADMITon 022 CK [Catalytic activity/Vol] 41 U/L Normal 39-308 The [place] Comment on above: Performed By: #### C MP, CMADM, BNP ####[place] Cquoxgilvp[address] [place], [place] [address]Dr. Farhat Leal CK.MB [Mass/Vol] 0.98 ng/mL Normal <=3.60 The [facility] Comment on above: Performed By: #### C MP, CMADM, BNP ####[place] Byszrhecft[address] [place], [place] [address]Dr. Farhat Leal HSTROP 30.1 pg/mL Normal 4.0-76.1 The [place] Comment on above: Result Comment: CUT- OFF POINTS HAVE BEEN ESTABLISHED BASED ON THE FOURTH UNIVERSAL DEFINITIONS OF MYOCARDIALINFARCTION. THE UPPER REFERENCE LIMIT (URL) OF TROPONIN, DEFINED THE 99TH PERCENTILE OFcTnI DISTRIBUTION IN A REFERENCE POPULATION, HAS BEEN CONFIRMED THE DECISION THRESHOLDFOR WI DIAGNOSIS. Performed By: #### C MP, CMADM, BNP ####[place] Tvkdbcrmhl68[address] [place], [place] [address]Dr. Farhat Leal VALERIA 160 ng/mL Critically high 16-96 [facility] Comment on above: Performed By: #### C MP, CMADM, BNP ####[place] Hsheznjqzv77[address] [place] [address]Dr. Farhat Leal CBC AUTO DIFFon 11-23-2021 BASO # 0.0 103/ul Normal 0.0-0.1 [facility] Comment on above: Performed By: #### C BC ####[place] [address]azohuipv[address] [place], [place] [address]Dr. Farhat Leal Basophils/100 WBC (Bld) 0.2 % Normal 0.2-2.0 The [place] Comment on above: Performed By: #### C BC ####[place] Idvzkrqlik30[address] [place], [place] [address]Dr. Farhat Leal EO # 0.0 103/ul Normal 0.0-0.7 The [place] Comment on above: Performed By: #### C BC ####[place] Mabnwweqii36[address] [place], [place] [address]Dr. Farhat Leal Eosinophils/100 WBC (Bld) 0.1 % Critically low 0.9-7.0 The [place] Comment on above: Performed By: #### C BC ####[place] Ulsxmvugzx[address] [place], [place] [address]Dr. Farhat Leal Erythrocyte distribution width (RBC) [Ratio] 13.4 % Normal 11.0-15.0 The [place] Comment on above: Performed By: #### C BC ####[place] Guhkjxqxco25[address] [place], [place] [address]Dr. Farhat Leal Hematocrit (Bld) [Volume fraction] 31.6 % Critically low 42.0-54.0 [facility] Comment on above: Performed By: #### C BC ####[place] Mrdzgtutfe65[address] [place], [place] [address]Dr. Farhat Leal Hemoglobin (Bld) [Mass/Vol] 10.4 g/dL Critically low 14.0-18.0 The [place] Comment on above: Performed By: #### C BC ####[place] Galipetmqt24[address] [place], [place] [address]Dr. Farhat Leal IG # 0.11 10e3/ul Critically high 0.00-0.03 The [facility] Comment on above: Performed By: #### C BC ####[place] Ogkclytnjc[address] [place], [place] [address]Dr. Farhat Leal IG % 0.7 % Critically high 0.0-0.5 [facility] Comment on above: Performed By: #### C BC ####[place] Mzzzobrhpo25[address] [place], [place] [address]Dr. Farhat Leal LYMPH # 0.5 103/ul Critically low 1.2-3.8 [facility] Comment on above: Performed By: #### C BC ####[place] Wfpghurotz6[address] [place] [address]Dr. Farhat Elvis Lymphocytes/100 WBC (Bld) 2.8 % Critically low 20.5-60.0 The [place] Comment on above: Performed By: #### C BC ####[place] Zadgtmyhxn036[address] [place] [address]Dr. Farhat Leal MANUAL DIFF REQ NO Normal [facility] Comment on above: Performed By: #### C BC ####[place] Nqthcyqeqi2140 [place] [address]Dr. Farhat Elvis MCH (RBC) [Entitic mass] 29.8 pg Normal 25.9-34.0 The [place] Comment on above: Performed By: #### C BC ####[place] Mwczwtsjzt4156 [place] [address]Dr. Madelynlorri Leal MCHC (RBC) [Mass/Vol] 32.9 g/dL Normal 29.9-35.2 The [place] Comment on above: Performed By: #### C BC ####[place] Fryvsvetqv4350 [place] [address]Dr. Farhat Leal MCV (RBC) [Entitic vol] 90.5 fL Normal 80.0-94.0 The [place] Comment on above: Performed By: #### C BC ####[place] Ivhdkrufvq8041 [place] [address]Dr. Farhat Leal MONO # 1.3 103/ul Critically high 0.3-0.8 [facility] Comment on above: Performed By: #### C BC ####[place] Qlirfpnljd6237 [place] [address]Dr. Farhat Leal Monocytes/100 WBC (Bld) 8.3 % Normal 1.7-12.0 The [place] Comment on above: Performed By: #### C BC ####[place] Fdxgriivlf5738 [place] [address]Dr. Farhat Leal NEUT # 13.9 103/ul Critically high 1.4-6.5 The [facility] Comment on above: Performed By: #### C BC ####[place] Fqmkkugkjl38[address] [place] [address]Dr. Farhat Leal Neutrophils/100 WBC (Bld) 87.9 % Critically high 43.0-75.0 The [place] Comment on above: Performed By: #### C BC ####[place] Xlmczfjseg6355 [place] [address]Dr. Farhat Leal Platelet mean volume (Bld) [Entitic vol] 9.3 fL Critically low 9.5-13.5 The [place] Comment on above: Performed By: #### C BC ####[place] Rjusfkdrnk3872 [place] [address]Dr. Farhat Leal PLT 390 103/ul Normal 150-450 The [place] Comment on above: Performed By: #### C BC ####[place] M[address]wkqsjvhm[address] [place], [place] [address]Dr. Farhat Leal RBC 3.49 106/ul Critically low 4.70-6.10 [facility] Comment on above: Performed By: #### C BC ####[place] Htmgdtimes8759 [place] [address]Dr. Farhat Leal WBC 15.9 103/ul Critically high 4.0-11.0 [facility] Comment on above: Performed By: #### C BC ####[place] Rerqxjomsi26[address] [place] [address]Dr. Farhat Leal CT HEAD WO CONon 11-23-2021 CT HEAD WO CON Normal [facility] CULTURE BLOODon 11-23-2021 Microscopic examination of blood, culture Culture Observations: NO GROWTH AT 5 DAYS. Normal The [place] Comment on above: Performed By: #### B LDCX2 ####[place] Pzuolxrafs17[address] [place] [address]Dr. Farhat Leal Covid-19 PCR (CVDTB)on SARS-CoV-2 (COVID-19) RNA JOSH+probe Ql (Unsp spec) Not detected Normal NOT DETECTED The [place] Comment on above: Result Comment: When diagnostic [...] for this test is supported by the [employer] of Health and Human Service's declaration that [...] be used). Performed By: #### C VDTBH ####[place] H[address]jpnsihl[address] [place], [place] [address]Dr. Farhat Leal LACTATE/LACTIC ACIDon 2021 Lactate [Moles/Vol] 1.3 mmol/L Normal 0.4-1.9 [facility] Comment on above: Performed By: #### L ACT ####[place] Bxdsebfegb4[address] [place], [place] [address]Dr. Farhat Leal Lactate [Moles/Vol] 1.3 mmol/L Normal 0.4-1.9 [facility] Comment on above: Performed By: #### L ACT ####[place] Gviepciuli8569[address] [place], [place] [address]Dr. Farhat Leal POINT OF CARE GLUCOSEon Glucose [Mass/Vol] 252 mg/dL Critically high 74-106 [facility] Comment on above: Performed By: #### P OCGLUC ####[place] Cfocfzqkiz6893 [place] [address]Dr. Farhat Leal PROF 14(COMP METB)on 022 Albumin [Mass/Vol] 1.6 g/dL Critically low 3.4-5.0 Th e [place] Comment on above: Performed By: #### C MP, CMADM, BNP ####[place] Edqhjhnjgv2373 [place] [address]Dr. Madelynlorri Elvis Albumin/Globulin [Mass ratio] 0.4 {ratio} Normal [facility] Comment on above: Performed By: #### C MP, CMADM, BNP ####[place] Njnphhyosc[address] [place], [place] [address]Dr. Farhat Elvis ALP [Catalytic activity/Vol] 98 U/L Normal 46-116 [facility] Comment on above: Performed By: #### C MP, CMADM, BNP ####[place] Dmjyklvdzx40[address] [place], [place] [address]Dr. Farhat Leal ALT [Catalytic activity/Vol] 52 U/L Normal 16-63 [facility] Comment on above: Performed By: #### C MP, CMADM, BNP ####[place] Tdpsssuxim[address] [place], [place] [address]Dr. Farhat Leal Anion gap [Moles/Vol] 9.8 mmol/L Normal [facility] Comment on above: Performed By: #### C MP, CMADM, BNP ####[place] Yagtyvjuzm23[address] [place], [place] [address]Dr. Farhat Leal AST [Catalytic activity/Vol] 122 U/L Critically high 15-37 [facility] Comment on above: Performed By: #### C MP, CMADM, BNP ####[place] Vuprsgzutb[address] [place], [place] [address]Dr. Farhat Leal Bilirubin [Mass/Vol] 0.7 mg/dL Normal 0.2-1.0 [facility] Comment on above: Performed By: #### C MP, CMADM, BNP ####[place] Rxgldhxbob5[address] [place], [place] [address]Dr. Farhat Leal Calcium [Mass/Vol] 8.6 mg/dL Normal 8.5-10.1 [facility] Comment on above: Performed By: #### C MP, CMADM, BNP ####[place] Tnpawkferq6974 [place] [address]Dr. Farhat Leal Chloride [Moles/Vol] 95 mmol/L Critically low 98-107 The [place] Comment on above: Performed By: #### C MP, CMADM, BNP ####[place] Oucffxqpwb5023 [place] [address]Dr. Farhat Leal CO2 [Moles/Vol] 29.6 mmol/L Normal 21.0-32.0 [facility] Comment on above: Performed By: #### C MP, CMADM, BNP ####[place] Ollabdndps7146 [place] [address]Dr. Farhat Leal Creatinine [Mass/Vol] 1.49 mg/dL Critically high 0.70-1.30 [facility] Comment on above: Performed By: #### C MP, CMADM, BNP ####[place] Ndjidlqadv20[address] [place], [place] [address]Dr. Farhat Elvis EGFR-AF J[place]ICAN 55 mL/min/1.73m2 Critically low >=60 [facility] Comment on above: Performed By: #### C MP, CMADM, BNP ####[place] Vtayqirdco2238 [place] [address]Dr. Farhat Leal EGFR-NON AF [place] 46 mL/min/1.73m2 Critically low >=60 [facility] Comment on above: Performed By: #### C MP, CMADM, BNP ####[place] Eaztparycm5109 [place] [address]Dr. Farhat Leal Globulin (S) [Mass/Vol] 4.3 g/dL Normal [facility] Comment on above: Performed By: #### C MP, CMADM, BNP ####[place] Fpyzusxlzv5982 [place] [address]Dr. Farhat Leal Glucose [Mass/Vol] 213 mg/dL Critically high 74-106 [facility] Comment on above: Performed By: #### C MP, CMADM, BNP ####[place] Rrciecpdnw8924 [place] [address]Dr. Farhat Leal Potassium [Moles/Vol] 4.4 mmol/L Normal 3.5-5.1 [facility] Comment on above: Performed By: #### C FATMATA MARROQUINDM, BNP ####[place] Cuoyvgliwm8661 [place] [address]Dr. Farhat Leal Protein [Mass/Vol] 5.9 g/dL Critically low 6.4-8.2 [facility] Comment on above: Performed By: #### C CARA CMADM, BNP ####[place] Cnjoaitore[address] [place], [place] [address]Dr. Farhat Leal Sodium [Moles/Vol] 130 mmol/L Critically low 136-145 [facility] Comment on above: Performed By: #### C FATMATA MARROQUINDM, BNP ####[place] Unzkjrthwo64[address] [place], [place] [address]Dr. Farhat Leal Urea nitrogen [Mass/Vol] 46.0 mg/dL Critically high 7.0-18.0 [facility] Comment on above: Performed By: #### C ANTWAN MARROQUIN, BNP ####[place] V[address]wpbhxts[address] [place], [place] [address]Dr. Farhat Leal Urea nitrogen/Creatinine [Mass ratio] 30.9 mg/mg Normal [facility] Comment on above: Performed By: #### C ANTWAN MARROQUIN, BNP ####[place] Azisudurlp6[address] [place], [place] [address]Dr. Farhat Leal PROTIMEon 11-23-2021 INR Coag (PPP) [Relative time] 2.55 {INR} Normal [facility] Comment on above: Performed By: #### P TT, PT ####[place] Ffwlgaocgl99[address] [place], [place] [address]Dr. Farhat Leal INR GUIDELINES SEE BELOW Normal [facility] Comment on above: Result Comment: MALINA RED INR: 2.0 - 3.0 CONDITIONS NOT LISTED BELOW 2.5 - 3.5 FOR PROSTHETIC HEART VALVE REPLACEMENT 2.5 - 3.5 RECURRENT THROMBOSIS Performed By: #### P TT, PT ####[place] Ewjlygwnxm64[address] [place], [place] [address]Dr. Farhat Leal PT Coag (PPP) [Time] 25.9 s Critically high 9.0-11.6 The [place] Comment on above: Performed By: #### P TT, PT ####[place] Mnfdgsnwtx7226 [place] [phone]. Farhat Leal PTTon 11-23-2021 aPTT Coag (Bld) [Time] 39.9 s Critically high 22.3-36. 2 The [place] Comment on above: Performed By: #### P TT, PT ####[place] Zdorguyrei6846[address] [place], [place] [address]Dr. Farhat Leal XR CHEST 1 Von 11-23-2021 XR CHEST 1 V Normal The [place] XR HEEL RT 2Von 11-23-2021 XR HEEL RT 2V Normal The [facility] XR FOOT RT MIN 3 VIEWSon XR FOOT RT MIN 3 VIEWS Normal [facility] US ARTERY LEG RTon US ARTERY LEG RT Normal [facility] CBC AUTO DIFFon 09-24-2021 BASO # 0.1 103/ul Normal 0.0-0.1 The [place] Comment on above: Performed By: #### C BC ####[place] Ogubulammf1402[address] [place], [place] [address]Dr. Farhat Elvis Basophils/100 WBC (Bld) 0.7 % Normal 0.2-2.0 The [place] Comment on above: Performed By: #### C BC ####[place] Vnbpfzsvso59[address] [place], [place] [address]Dr. Farhat Elvis EO # 0.3 103/ul Normal 0.0-0.7 The [place] Comment on above: Performed By: #### C BC ####[place] Ziuaalaysx765[address] [place], [place] [address]Dr. Farhat Elvis Eosinophils/100 WBC (Bld) 3.9 % Normal 0.9-7.0 The [place] Comment on above: Performed By: #### C BC ####[place] Utmvhzxgmy7055[address] [place], [place] [address]Dr. Farhat Elvis Erythrocyte distribution width (RBC) [Ratio] 12.6 % Normal 11.0-15.0 [facility] Comment on above: Performed By: #### C BC ####[place] Sivoahkulc8328 [place] [address]DrSkylar Leal Hematocrit (Bld) [Volume fraction] 38.9 % Critically low 42.0-54.0 [facility] Comment on above: Performed By: #### C BC ####[place] Xgkbyvqbwa5726[address] [place], [place] [address]DrSkylar Leal Hemoglobin (Bld) [Mass/Vol] 12.8 g/dL Critically low 14.0-18.0 [facility] Comment on above: Performed By: #### C BC ####[place] Puyjgvujmh[address] [place], [place] [address]DrSkylar Leal IG # 0.10 10e3/ul Critically high 0.00-0.03 [facility] Comment on above: Performed By: #### C BC ####[place] Edclxoscpg255[address] [place], [place] [address]DrSkylar Leal IG % 1.2 % Critically high 0.0-0.5 [facility] Comment on above: Performed By: #### C BC ####[place] Psyhnrtxcu5098[address] [place], [place] [address]DrSkylar Leal LYMPH # 2.1 103/ul Normal 1.2-3.8 The [place] Comment on above: Performed By: #### C BC ####[place] Pbvyokjojk7135[address] [place], [place] [address]DrSkylar Leal Lymphocytes/100 WBC (Bld) 25.9 % Normal 20.5-60.0 [facility] Comment on above: Performed By: #### C BC ####[place] Aekjcjuvdj3964[address] [place], [place] [address]DrSkylar Leal MANUAL DIFF REQ NO Normal [facility] Comment on above: Performed By: #### C BC ####[place] Uicpjrfeos2823[address] [place], [place] [address]DrSkylar Leal MCH (RBC) [Entitic mass] 31.1 pg Normal 25.9-34.0 [facility] Comment on above: Performed By: #### C BC ####[place] Cnqrftzpqx4337 [place] [address]DrSkylar Leal MCHC (RBC) [Mass/Vol] 32.9 g/dL Normal 29.9-35.2 The [place] Comment on above: Performed By: #### C BC ####[place] Ozxacxtbmm4612 [place] [address]DrSkylar Leal MCV (RBC) [Entitic vol] 94.6 fL Critically high 80.0-94.0 The [place] Comment on above: Performed By: #### C BC ####[place] Vdgvsvxren[address] [place], [place] [address]DrSkylar Leal MONO # 1.2 103/ul Critically high 0.3-0.8 [facility] Comment on above: Performed By: #### C BC ####[place] Ofwdlfhyxp1765[address] [place], [place] [address]DrSkylar Leal Monocytes/100 WBC (Bld) 14.1 % Critically high 1.7-12.0 [facility] Comment on above: Performed By: #### C BC ####[place] Xbwvjjowyb8217[address] [place], [place] [address]DrSkylar Leal NEUT # 4.4 103/ul Normal 1.4-6.5 The [place] Comment on above: Performed By: #### C BC ####[place] Ihjirnxlts3896[address] [place], [place] [address]DrSkylar Leal Neutrophils/100 WBC (Bld) 54.2 % Normal 43.0-75.0 The [place] Comment on above: Performed By: #### C BC ####[place] Gwafcvdiqg7389[address] [place], [place] [address]DrSkylar Leal Platelet mean volume (Bld) [Entitic vol] 9.9 fL Normal 9.5-13.5 The [place] Comment on above: Performed By: #### C BC ####[place] Ohztznfuib657[address] [place], [place] [address]Dr. Farhat Leal PLT 224 103/ul Normal 150-450 The [place] Comment on above: Performed By: #### C BC ####[place] Twysttmjrf0581 [place] [address]Dr. Farhat Leal RBC 4.11 106/ul Critically low 4.70-6.10 [facility] Comment on above: Performed By: #### C BC ####[place] Sclympvluu3330 [place] [address]Dr. Farhat Leal WBC 8.2 103/ul Normal 4.0-11.0 The [place] Comment on above: Performed By: #### C BC ####[place] Xsrcukhnsc3699[address] [place], [place] [address]DrSkylar Leal PROF CHEM 8 (BAS METB)on Anion gap [Moles/Vol] 9.6 mmol/L Normal [facility] Comment on above: Performed By: #### B MP ####[place] Esstbosctj5824[address] [place], [place] [address]Dr. Farhat Leal Calcium [Mass/Vol] 8.6 mg/dL Normal 8.5-10.1 [facility] Comment on above: Performed By: #### B MP ####[place] Kagdtwxxld6567[address] [place], [place] [address]Dr. Farhat Leal Chloride [Moles/Vol] 94 mmol/L Critically low 98-107 The [place] Comment on above: Performed By: #### B MP ####[place] [address]esswnwo[address] [place], [place] [address]DrSkylar Leal CO2 [Moles/Vol] 28.1 mmol/L Normal 21.0-32.0 [facility] Comment on above: Performed By: #### B MP ####[place] Osxsphrhzl95[address] [place], [place] [address]Dr. Farhat Leal Creatinine [Mass/Vol] 1.91 mg/dL Critically high 0.70-1.30 The [place] Comment on above: Performed By: #### B MP ####[place] Geejyebuib0142[address] [place], [place] [address]Dr. Madelynlorri Leal EGFR-AF J[place]ICAN 42 mL/min/1.73m2 Critically low >=60 [facility] Comment on above: Performed By: #### B MP ####[place] Sledbxsanm0979 [place] [address]Dr. Farhat Leal EGFR-NON AF [place] 34 mL/min/1.73m2 Critically low >=60 [facility] Comment on above: Performed By: #### B MP ####[place] Ddeurqcsst35[address] [place], [place] [address]Dr. Madelynlorri Elvis Glucose [Mass/Vol] 314 mg/dL Critically high 74-106 T [facility] Comment on above: Performed By: #### B MP ####[place] Dajsagtaia8107[address] [place], [place] [address]Dr. Farhat Leal Potassium [Moles/Vol] 4.7 mmol/L Normal 3.5-5.1 [facility] Comment on above: Performed By: #### B MP ####[place] Ymujpxqarz4314[address] [place], [place] [address]Dr. Farhat Leal Sodium [Moles/Vol] 127 mmol/L Critically low 136-145 [facility] Comment on above: Performed By: #### B MP ####[place] Emruejmldl7015[address] [place], [place] [address]Dr. Madelynlorri Elvis Urea nitrogen [Mass/Vol] 79.0 mg/dL Critically high 7.0-18.0 [facility] Comment on above: Result Comment: repe ated Performed By: #### B MP ####[place] Aejawxblch64[address] [place], [place] [address]Dr. Farhat Leal Urea nitrogen/Creatinine [Mass ratio] 41.4 mg/mg Normal [facility] Comment on above: Performed By: #### B MP ####[place] Hsbxeabkdt[address] [place], [place] [address]Dr. Farhat Leal PTT HEPARIN MONITORon 2021 aPTT Coag (Bld) [Time] 42.7 s Normal 39.5-54.2 [facility] Comment on above: Performed By: #### P TTHEP ####[place] Mvkdoydeee1497 [place] [phone]. Farhat Leal aPTT Coag (Bld) [Time] 56.7 s Critically high 39.5-54. 2 [facility] Comment on above: Performed By: #### P TTHEP ####[place] Rronttohjm5214 [place] [address]Dr. Farhat Elvis CBC AUTO DIFFon 09-23-2021 BASO # 0.1 103/ul Normal 0.0-0.1 [facility] Comment on above: Performed By: #### C BC ####[place] Bnwnwgedgs25[address] [place], [place] [address]Dr. Farhat Leal Basophils/100 WBC (Bld) 0.6 % Normal 0.2-2.0 [facility] Comment on above: Performed By: #### C BC ####[place] Kqqgsleijd15[address] [place], [place] [address]Dr. Farhat Leal EO # 0.2 103/ul Normal 0.0-0.7 [facility] Comment on above: Performed By: #### C BC ####[place] Ahwzyidosi15[address] [place], [place] [address]Dr. Madelynlorri Leal Eosinophils/100 WBC (Bld) 2.6 % Normal 0.9-7.0 [facility] Comment on above: Performed By: #### C BC ####[place] Nphsxzycro7[address] [place], [place] [address]Dr. Farhat Leal Erythrocyte distribution width (RBC) [Ratio] 12.4 % Normal 11.0-15.0 The [place] Comment on above: Performed By: #### C BC ####[place] Sgiczttbzl[address] [place], [place] [address]Dr. Farhat Leal Hematocrit (Bld) [Volume fraction] 38.4 % Critically low 42.0-54.0 [facility] Comment on above: Performed By: #### C BC ####[place] Gtkgcraaye77[address] [place], [place] [address]Dr. Farhat Leal Hemoglobin (Bld) [Mass/Vol] 12.8 g/dL Critically low 14.0-18.0 [facility] Comment on above: Performed By: #### C BC ####[place] Fmyeszzuni5449 [place] [address]Dr. Farhat Leal IG # 0.06 10e3/ul Critically high 0.00-0.03 [facility] Comment on above: Performed By: #### C BC ####[place] Jylgczxzwf8145 [place] [address]Dr. Farhat Leal IG % 0.8 % Critically high 0.0-0.5 [facility] Comment on above: Performed By: #### C BC ####[place] Fftnfrhgem5517 [place] [address]Dr. Farhat Leal LYMPH # 1.5 103/ul Normal 1.2-3.8 [facility] Comment on above: Performed By: #### C BC ####[place] Dwcznvzulo[address] [place] [address]Dr. Farhat Leal Lymphocytes/100 WBC (Bld) 19.7 % Critically low 20.5-60.0 [facility] Comment on above: Performed By: #### C BC ####[place] Xglxvblpox23[address] [place] [address]Dr. Farhat Leal MANUAL DIFF REQ NO Normal [facility] Comment on above: Performed By: #### C BC ####[place] Peyjoodtzp6[address] [place] [address]DrSkylar Leal MCH (RBC) [Entitic mass] 31.6 pg Normal 25.9-34.0 [facility] Comment on above: Performed By: #### C BC ####[place] Earbmrnyiz0026 [place] [address]DrSkylar Leal MCHC (RBC) [Mass/Vol] 33.3 g/dL Normal 29.9-35.2 [facility] Comment on above: Performed By: #### C BC ####[place] Fmqfgosvwv9302 [place] [address]DrSkylar Leal MCV (RBC) [Entitic vol] 94.8 fL Critically high 80.0-94.0 [facility] Comment on above: Performed By: #### C BC ####[place] Pnjspbcand5691 [place] [address]DrSkylar Joshilorri Elvis MONO # 1.0 103/ul Critically high 0.3-0.8 [facility] Comment on above: Performed By: #### C BC ####[place] Ekpadfknuz5517 [place] [address]DrSkylar Leal Monocytes/100 WBC (Bld) 13.0 % Critically high 1.7-12.0 [facility] Comment on above: Performed By: #### C BC ####[place] Qjz[address]powy[address] [place], [place] [address]DrSkylar Joshilorri Elvis NEUT # 4.9 103/ul Normal 1.4-6.5 [facility] Comment on above: Performed By: #### C BC ####[place] Aruhpqihlx[address] [place], [place] [address]DrSkylar Leal Neutrophils/100 WBC (Bld) 63.3 % Normal 43.0-75.0 [facility] Comment on above: Performed By: #### C BC ####[place] Fcysgmcpcd1564[address] [place], [place] [address]DrSkylar Leal Platelet mean volume (Bld) [Entitic vol] 10.7 fL Normal 9.5-13.5 [facility] Comment on above: Performed By: #### C BC ####[place] Blyshqylks5[address] [place] [address]Dr. Farhat Leal PLT 205 103/ul Normal 150-450 [facility] Comment on above: Performed By: #### C BC ####[place] Zpwcmsucdi2755 [place] [id number] Leal RBC 4.05 106/ul Critically low 4.70-6.10 [facility] Comment on above: Performed By: #### C BC ####[place] Wgwomsqyai9[address] [place] [id number] Leal WBC 7.7 103/ul Normal 4.0-11.0 [facility] Comment on above: Performed By: #### C BC ####[place] Janzigwzoe64[address] [place] [address]Dr. Farhat Leal PROF CHEM 8 (BAS METB)on Anion gap [Moles/Vol] 15.5 mmol/L Normal [facility] Comment on above: Performed By: #### B MP ####[place] Azeszbdxaq606[address] [place], [place] [address]Dr. Farhat Leal Calcium [Mass/Vol] 9.1 mg/dL Normal 8.5-10.1 [facility] Comment on above: Performed By: #### B MP ####[place] Wsoyzasyuv9769[address] [place], [place] [address]Dr. Farhat Leal Chloride [Moles/Vol] 92 mmol/L Critically low 98-107 [facility] Comment on above: Performed By: #### B MP ####[place] Fkkddlbibw3914[address] [place], [place] [address]Dr. Farhat Leal CO2 [Moles/Vol] 28.5 mmol/L Normal 21.0-32.0 [facility] Comment on above: Performed By: #### B MP ####[place] Fjukhlsqig[address] [place], [place] [address]DrSkylar Leal Creatinine [Mass/Vol] 1.84 mg/dL Critically high 0.70-1.30 [facility] Comment on above: Performed By: #### B MP ####[place] Bgneyvihcw18[address] [place], [place] [address]DrSkylar Leal EGFR-AF J[place] 44 mL/min/1.73m2 Critically low >=60 [facility] Comment on above: Performed By: #### B MP ####[place] Zcrvufufoh95[address] [place], [place] [address]Dr. Farhat Leal EGFR-NON AF [place] 36 mL/min/1.73m2 Critically low >=60 [facility] Comment on above: Performed By: #### B MP ####[place] Oagplxrykl[address] [place], [place] [address]DrSkylar Leal Glucose [Mass/Vol] 267 mg/dL Critically high 74-106 T [facility] Comment on above: Performed By: #### B MP ####[place] Rulosvyurw6924[address] [place], [place] [address]Dr. Farhat Leal Potassium [Moles/Vol] 5.0 mmol/L Normal 3.5-5.1 [facility] Comment on above: Performed By: #### B MP ####[place] Kmeriamozd59[address] [place], [place] [address]Dr. Madelynlorri Elvis Sodium [Moles/Vol] 131 mmol/L Critically low 136-145 [facility] Comment on above: Performed By: #### B MP ####[place] Dkkvyiivui9347[address] [place], [place] [address]Dr. Farhat Elvis Urea nitrogen [Mass/Vol] 76.0 mg/dL Critically high 7.0-18.0 [facility] Comment on above: Performed By: #### B MP ####[place] Ascalnbheq[address] [place], [place] [address]Dr. Madelynlorri Elvis Urea nitrogen/Creatinine [Mass ratio] 41.3 mg/mg Normal [facility] Comment on above: Performed By: #### B MP ####[place] Pbcsypqkqm9096[address] [place], [place] [address]Dr. Farhat Elvis PTT HEPARIN MONITORon 2021 aPTT Coag (Bld) [Time] 57.2 s Critically high 39.5-54. 2 [facility] Comment on above: Performed By: #### P TTHEP ####[place] Gghszdzhqe8[address] [place], [place] [address]Dr. Madelynlorri Elvis aPTT Coag (Bld) [Time] 74.7 s Critically high 39.5-54. 2 [facility] Comment on above: Result Comment: repe ated Performed By: #### P TTHEP ####[place] Bplnsnupsa[address] [place], [place] [address]Dr. Farhat Leal aPTT Coag (Bld) [Time] 45.5 s Normal 39.5-54.2 [facility] Comment on above: Performed By: #### P TTHEP ####[place] Cneimalywh[address] [place] [address]Dr. Farhat Elvis CBC AUTO DIFFon 09-22-2021 BASO # 0.1 103/ul Normal 0.0-0.1 [facility] Comment on above: Performed By: #### C BC ####[place] Yazxchesnu6845[address] [place], [place] [address]Dr. Farhat Leal Basophils/100 WBC (Bld) 0.7 % Normal 0.2-2.0 [facility] Comment on above: Performed By: #### C BC ####[place] Saqujtbzam9869[address] [place], [place] [address]Dr. Farhat Leal EO # 0.3 103/ul Normal 0.0-0.7 [facility] [place] Comment on above: Performed By: #### C BC ####[place] Gjttnhtkux8656[address] [place], [place] [address]Dr. Farhat Leal Eosinophils/100 WBC (Bld) 3.2 % Normal 0.9-7.0 [facility] Comment on above: Performed By: #### C BC ####[place] Wkbqeqrlpt702[address] [place], [place] [address]Dr. Farhat Leal Erythrocyte distribution width (RBC) [Ratio] 12.5 % Normal 11.0-15.0 [facility] Comment on above: Performed By: #### C BC ####[place] Gjflceorma62[address] [place], [place] [address]Dr. Farhat Leal Hematocrit (Bld) [Volume fraction] 40.5 % Critically low 42.0-54.0 [facility] Comment on above: Performed By: #### C BC ####[place] Zeutanfnwo25[address] [place], [place] [address]Dr. Farhat Leal Hemoglobin (Bld) [Mass/Vol] 13.4 g/dL Critically low 14.0-18.0 [facility] Comment on above: Performed By: #### C BC ####[place] Mhdommixff10[address] [place], [place] [address]Dr. Farhat Leal IG # 0.11 10e3/ul Critically high 0.00-0.03 [facility] Comment on above: Performed By: #### C BC ####[place] Tjynbbozii[address] [place] [phone]. Farhat Elvis IG % 1.3 % Critically high 0.0-0.5 [facility] Comment on above: Performed By: #### C BC ####[place] Vusjpnnsyb24[address] [place] [address]Dr. Farhat Leal LYMPH # 1.7 103/ul Normal 1.2-3.8 [facility] [place] Comment on above: Performed By: #### C BC ####[place] Idjcpyutpy39[address] [place] [address]Dr. Farhat Leal Lymphocytes/100 WBC (Bld) 19.6 % Critically low 20.5-60.0 [facility] Comment on above: Performed By: #### C BC ####[place] Wkhspebotz29[address] [place], [place] [address]Dr. Farhat Leal MANUAL DIFF REQ NO Normal [facility] Comment on above: Performed By: #### C BC ####[place] Swiarewnki[address] [place] [address]Dr. Farhat Elvis MCH (RBC) [Entitic mass] 31.1 pg Normal 25.9-34.0 [facility] Comment on above: Performed By: #### C BC ####[place] Uwwphnkwrb32[address] [place] [address]Dr. Farhat Leal MCHC (RBC) [Mass/Vol] 33.1 g/dL Normal 29.9-35.2 [facility] Comment on above: Performed By: #### C BC ####[place] Ovvlwmqupy[address] [place], [place] [address]DrSkylar Leal MCV (RBC) [Entitic vol] 94.0 fL Normal 80.0-94.0 [facility] Comment on above: Performed By: #### C BC ####[place] Zbkhrpxbrr9[address] [place], [place] [address]DrSkylar Leal MONO # 1.1 103/ul Critically high 0.3-0.8 [facility] Comment on above: Performed By: #### C BC ####[place] Z[address]ewcfwwm1264 [place] [address]DrSkylar Farhat Leal Monocytes/100 WBC (Bld) 12.7 % Critically high 1.7-12.0 [facility] Comment on above: Performed By: #### C BC ####[place] Naqdbtzpqf8740 [place] [address]DrSkylar Farhat Leal NEUT # 5.3 103/ul Normal 1.4-6.5 [facility] Comment on above: Performed By: #### C BC ####[place] Sqhrldhxbk0791 [place] [address]DrSkylar Farhat Leal Neutrophils/100 WBC (Bld) 62.5 % Normal 43.0-75.0 [facility] Comment on above: Performed By: #### C BC ####[place] Wioeymfsvl5007 [place] [address]DrSkylar Farhat Leal Platelet mean volume (Bld) [Entitic vol] 10.1 fL Normal 9.5-13.5 [facility] Comment on above: Performed By: #### C BC ####[place] Ulvvsxihps0470 [place] [address]Dr. Farhat Leal PLT 220 103/ul Normal 150-450 [facility] Comment on above: Performed By: #### C BC ####[place] Ogfmuqqjpf0077 [place] [address]DrSkylar Farhat Leal RBC 4.31 106/ul Critically low 4.70-6.10 [facility] Comment on above: Performed By: #### C BC ####[place] Shgmlbimqv11[address] [place] [phone] Farhat Elvis WBC 8.4 103/ul Normal 4.0-11.0 [facility] [place] Comment on above: Performed By: #### C BC ####[place] Pkefncpyqz8320 [place] [address]DrSkylar Leal PROF CHEM 8 (BAS METB)on Anion gap [Moles/Vol] 15.5 mmol/L Normal [facility] Comment on above: Performed By: #### B MP ####[place] Omupwcpwrw4[address] [place], [place] [address]Dr. Farhat Leal Calcium [Mass/Vol] 8.9 mg/dL Normal 8.5-10.1 [facility] Comment on above: Performed By: #### B MP ####[place] Tbvctktchf8269[address] [place], [place] [address]Dr. Farhat Leal Chloride [Moles/Vol] 92 mmol/L Critically low 98-107 [facility] Comment on above: Performed By: #### B MP ####[place] Bylxvvkzkt5983[address] [place], [place] [address]Dr. Farhat Leal CO2 [Moles/Vol] 25.7 mmol/L Normal 21.0-32.0 [facility] Comment on above: Performed By: #### B MP ####[place] Ptrxomswnd7696[address] [place], [place] [address]Dr. Farhat Leal Creatinine [Mass/Vol] 1.85 mg/dL Critically high 0.70-1.30 [facility] Comment on above: Performed By: #### B MP ####[place] Bydjqdatar[address] [place], [place] [address]Dr. Farhat Leal EGFR-AF [place] 43 mL/min/1.73m2 Critically low >=60 [facility] Comment on above: Performed By: #### B MP ####[place] Qezglsanvq5[address] [place], [place] [address]Dr. Farhat Leal EGFR-NON AF [place] 36 mL/min/1.73m2 Critically low >=60 [facility] Comment on above: Performed By: #### B MP ####[place] Rydlnbwizr20[address] [place], [place] [address]Dr. Farhat Leal Glucose [Mass/Vol] 410 mg/dL Critically high 74-106 T [facility] Comment on above: Performed By: #### B MP ####[place] Aedxpdyfqb9718[address] [place], [place] [address]Dr. Farhat Leal Potassium [Moles/Vol] 5.2 mmol/L Critically high 3.5-5.1 [facility] Comment on above: Performed By: #### B MP ####[place] Lbpbwdrauu377[address] [place], [place] [address]Dr. Farhat Leal Sodium [Moles/Vol] 128 mmol/L Critically low 136-145 [facility] Comment on above: Performed By: #### B MP ####[place] Gxphanxzle7584[address] [place], [place] [address]Dr. Farhat Leal Urea nitrogen [Mass/Vol] 75.0 mg/dL Critically high 7.0-18.0 [facility] Comment on above: Performed By: #### B MP ####[place] Iinwomrqnc5508[address] [place], [place] [address]Dr. Farhat Leal Urea nitrogen/Creatinine [Mass ratio] 40.5 mg/mg Normal [facility] Comment on above: Performed By: #### B MP ####[place] Ghfkuhzlkv7435[address] [place], [place] [address]Dr. Farhat Leal PTT HEPARIN MONITORon 2021 aPTT Coag (Bld) [Time] 51.2 s Normal 39.5-54.2 [facility] Comment on above: Performed By: #### P TTHEP ####[place] Vbaqiliqzx119[address] [place], [place] [address]Dr. Farhat Leal aPTT Coag (Bld) [Time] 55.6 s Critically high 39.5-54. 2 [facility] Comment on above: Performed By: #### P TTHEP ####[place] Mblrtbeskv1475[address] [place], [place] [address]Dr. Farhat Leal aPTT Coag (Bld) [Time] 46.1 s Normal 39.5-54.2 [facility] Comment on above: Performed By: #### P TTHEP ####[place] Buwxfmzejg[address] [place], [place] [address]Dr. Farhat Leal aPTT Coag (Bld) [Time] 53.8 s Normal 39.5-54.2 [facility] Comment on above: Performed By: #### P TTHEP ####[place] Cqfyxrgglq4930 [place] [address]Dr. Farhat Leal CBC AUTO DIFFon 09-21-2021 BASO # 0.1 103/ul Normal 0.0-0.1 [facility] Comment on above: Performed By: #### C BC ####[place] Xctgxbvuwa3039[address] [place], [place] [address]Dr. Farhat Leal Basophils/100 WBC (Bld) 0.8 % Normal 0.2-2.0 [facility] Comment on above: Performed By: #### C BC ####[place] Cgoagxzcnx2347[address] [place], [place] [address]Dr. Farhat Leal EO # 0.4 103/ul Normal 0.0-0.7 [facility] Comment on above: Performed By: #### C BC ####[place] Dhwjpkcrcd098[address] [place], [place] [address]Dr. Farhat Leal Eosinophils/100 WBC (Bld) 4.3 % Normal 0.9-7.0 [facility] Comment on above: Performed By: #### C BC ####[place] Lsrdejvofp67[address] [place], [place] [address]Dr. Farhat Leal Erythrocyte distribution width (RBC) [Ratio] 12.5 % Normal 11.0-15.0 [facility] Comment on above: Performed By: #### C BC ####[place] Upjhcoomka1655[address] [place], [place] [address]Dr. Farhat Leal Hematocrit (Bld) [Volume fraction] 40.8 % Critically low 42.0-54.0 [facility] Comment on above: Performed By: #### C BC ####[place] Zirfsehbqs9976[address] [place], [place] [address]Dr. Farhat Leal Hemoglobin (Bld) [Mass/Vol] 13.5 g/dL Critically low 14.0-18.0 [facility] Comment on above: Performed By: #### C BC ####[place] Mdamskpizp280[address] [place], [place] [address]Dr. Farhat Leal IG # 0.10 10e3/ul Critically high 0.00-0.03 [facility] Comment on above: Performed By: #### C BC ####[place] Bzyvijbeyw2292 [place] [address]DrSkylar Farhat Elvis IG % 1.2 % Critically high 0.0-0.5 [facility] Comment on above: Performed By: #### C BC ####[place] Gojegvgwrq5021 [place] [address]DrSkylar Joshilorri Elvis LYMPH # 1.3 103/ul Normal 1.2-3.8 [facility] [place] Comment on above: Performed By: #### C BC ####[place] Ogfwwgjmae278[address] [place], [place] [address]DrSkylar Leal Lymphocytes/100 WBC (Bld) 15.4 % Critically low 20.5-60.0 [facility] Comment on above: Performed By: #### C BC ####[place] Abfrxswhbg[address] [place], [place] [address]DrSkylar Leal MANUAL DIFF REQ NO Normal [facility] Comment on above: Performed By: #### C BC ####[place] Tackutxejv3[address] [place], [place] [address]DrSkylar Joshilorri Elvis MCH (RBC) [Entitic mass] 31.0 pg Normal 25.9-34.0 [facility] Comment on above: Performed By: #### C BC ####[place] Oxtwmsclcp2057 [place] [address]DrSkylar Joshilorri Elvis MCHC (RBC) [Mass/Vol] 33.1 g/dL Normal 29.9-35.2 [facility] Comment on above: Performed By: #### C BC ####[place] Dzpletsmgz1508[address] [place], [place] [address]DrSkylar Leal MCV (RBC) [Entitic vol] 93.8 fL Normal 80.0-94.0 [facility] Comment on above: Performed By: #### C BC ####[place] Xcbuovxzke9248[address] [place], [place] [address]DrSkylar Leal MONO # 1.2 103/ul Critically high 0.3-0.8 [facility] Comment on above: Performed By: #### C BC ####[place] Bowvlmrdge23[address] [place] [address]Dr. Farhat Leal Monocytes/100 WBC (Bld) 13.6 % Critically high 1.7-12.0 [facility] [place] Comment on above: Performed By: #### C BC ####[place] Fmdbcsimfe9544[address] [place], [place] [address]Dr. Farhat Leal NEUT # 5.5 103/ul Normal 1.4-6.5 [facility] [place] Comment on above: Performed By: #### C BC ####[place] Tgomcrisop6836 [place] [address]Dr. Farhat Leal Neutrophils/100 WBC (Bld) 64.7 % Normal 43.0-75.0 [facility] Comment on above: Performed By: #### C BC ####[place] Jhnicavghs7309[address] [place], [place] [address]Dr. Farhat Leal Platelet mean volume (Bld) [Entitic vol] 9.8 fL Normal 9.5-13.5 [facility] Comment on above: Performed By: #### C BC ####[place] Hblnqyvmxt5107[address] [place], [place] [address]Dr. Farhat Leal PLT 206 103/ul Normal 150-450 [facility] Comment on above: Performed By: #### C BC ####[place] Uyenmmxbzv4426[address] [place], [place] [address]Dr. Farhat Leal RBC 4.35 106/ul Critically low 4.70-6.10 [facility] Comment on above: Performed By: #### C BC ####[place] Y[address]wjozcnkp[address] [place], [place] [address]Dr. Farhat Leal WBC 8.4 103/ul Normal 4.0-11.0 [facility] Comment on above: Performed By: #### C BC ####[place] Iscaelwbvz50[address] [place], [place] [address]DrSkylar Farhat Elvis PROF CHEM 8 (BAS METB)on Anion gap [Moles/Vol] 12.3 mmol/L Normal [facility] Comment on above: Performed By: #### B MP ####[place] Qkceoqvvek6494[address] [place], [place] [address]Dr. Farhat Leal Calcium [Mass/Vol] 8.6 mg/dL Normal 8.5-10.1 [facility] Comment on above: Performed By: #### B MP ####[place] Bdtvbtyebs5125[address] [place], [place] [address]Dr. Farhat Leal Chloride [Moles/Vol] 94 mmol/L Critically low 98-107 [facility] Comment on above: Performed By: #### B MP ####[place] Mufseoezqu2943[address] [place], [place] [address]Dr. Farhat Leal CO2 [Moles/Vol] 30.8 mmol/L Normal 21.0-32.0 [facility] Comment on above: Performed By: #### B MP ####[place] Vjzbrkrvly698[address] [place], [place] [address]Dr. Farhat Leal Creatinine [Mass/Vol] 1.99 mg/dL Critically high 0.70-1.30 [facility] Comment on above: Performed By: #### B MP ####[place] Xnhkbfnvld8895[address] [place], [place] [address]Dr. Farhat Leal EGFR-AF [place] 40 mL/min/1.73m2 Critically low >=60 [facility] Comment on above: Performed By: #### B MP ####[place] Hqkffeerqg70[address] [place], [place] [address]Dr. Farhat Leal EGFR-NON AF [place] 33 mL/min/1.73m2 Critically low >=60 [facility] Comment on above: Performed By: #### B MP ####[place] Wqbpiiejjb6745[address] [place], [place] [address]Dr. Farhat Leal Glucose [Mass/Vol] 264 mg/dL Critically high 74-106 [facility] Comment on above: Performed By: #### B MP ####[place] Znnyilhyaq119[address] [place], [place] [address]Dr. Farhat Leal Potassium [Moles/Vol] 5.1 mmol/L Normal 3.5-5.1 [facility] Comment on above: Performed By: #### B MP ####[place] Gvwnmgncek7218[address] [place], [place] [address]Dr. Farhat Leal Sodium [Moles/Vol] 132 mmol/L Critically low 136-145 [facility] Comment on above: Performed By: #### B MP ####[place] Cyqeultkdr186[address] [place], [place] [address]Dr. Farhat Leal Urea nitrogen [Mass/Vol] 72.0 mg/dL Critically high 7.0-18.0 [facility] Comment on above: Performed By: #### B MP ####[place] Xkddmptyoi9927[address] [place], [place] [address]Dr. Farhat Leal Urea nitrogen/Creatinine [Mass ratio] 36.2 mg/mg Normal [facility] Comment on above: Performed By: #### B MP ####[place] Zgoahmiweq0159[address] [place], [place] [address]Dr. Farhat Leal PTT HEPARIN MONITORon 2021 aPTT Coag (Bld) [Time] 45.3 s Normal 39.5-54.2 [facility] Comment on above: Performed By: #### P TTHEP ####[place] Kayheqjneb05[address] [place], [place] [address]Dr. Farhat Leal aPTT Coag (Bld) [Time] 68.0 s Critically high 39.5-54. 2 [facility] Comment on above: Performed By: #### P TTHEP ####[place] Fjtjommqqg5105[address] [place], [place] [address]Dr. Farhat Leal aPTT Coag (Bld) [Time] 69.4 s Critically high 39.5-54. 2 [facility] Comment on above: Performed By: #### P TTHEP ####[place] Emsdmdoimi1684[address] [place], [place] [address]Dr. Farhat Leal aPTT Coag (Bld) [Time] 53.5 s Normal 39.5-54.2 [facility] Comment on above: Performed By: #### P TTHEP ####[place] Pauskrffdd495[address] [place] [address]Dr. Farhat Leal aPTT Coag (Bld) [Time] 126.9 s Critically high 39.5-54. 2 [facility] Comment on above: Performed By: #### P TTHEP ####[place] Yarxhfpnxa25[address] [place], [place] [address]DrSkylar Leal CBC AUTO DIFFon 09-20-2021 BASO # 0.1 103/ul Normal 0.0-0.1 [facility] Comment on above: Performed By: #### C BC ####[place] Rwbxslurzk3633[address] [place], [place] [address]DrSkylar Leal Basophils/100 WBC (Bld) 0.7 % Normal 0.2-2.0 [facility] Comment on above: Performed By: #### C BC ####[place] Fafbjkezwv[address] [place], [place] [address]DrSkylar Leal EO # 0.2 103/ul Normal 0.0-0.7 [facility] Comment on above: Performed By: #### C BC ####[place] Povcofyosk7238[address] [place], [place] [address]DrSkylar Leal Eosinophils/100 WBC (Bld) 3.2 % Normal 0.9-7.0 [facility] Comment on above: Performed By: #### C BC ####[place] Ctghumpfha48[address] [place], [place] [address]DrSkylar Leal Erythrocyte distribution width (RBC) [Ratio] 12.4 % Normal 11.0-15.0 [facility] Comment on above: Performed By: #### C BC ####[place] Tf[address]reofu[address] [place], [place] [address]DrSkylar Leal Hematocrit (Bld) [Volume fraction] 40.1 % Critically low 42.0-54.0 [facility] Comment on above: Performed By: #### C BC ####[place] Qkgvmbrcsd9388[address] [place], [place] [address]Dr. Farhat Leal Hemoglobin (Bld) [Mass/Vol] 13.4 g/dL Critically low 14.0-18.0 [facility] Comment on above: Performed By: #### C BC ####[place] Fdumbvoopb30[address] [place] [address]Dr. Madelynlorri Leal IG # 0.08 10e3/ul Critically high 0.00-0.03 [facility] Comment on above: Performed By: #### C BC ####[place] Qjjmmqksaz2490 [place] [address]Dr. Madelynlorri Leal IG % 1.1 % Critically high 0.0-0.5 [facility] Comment on above: Performed By: #### C BC ####[place] Ijbzyaeobq4[address] [place], [place] [address]Dr. Farhat Leal LYMPH # 1.3 103/ul Normal 1.2-3.8 [facility] Comment on above: Performed By: #### C BC ####[place] H[address]nyhrgggz27[address] [place], [place] [address]Dr. Farhat Leal Lymphocytes/100 WBC (Bld) 17.3 % Critically low 20.5-60.0 [facility] Comment on above: Performed By: #### C BC ####[place] Tipjbnbmef0308 [place] [address]DrSkylar Madelynlorri Leal MANUAL DIFF REQ NO Normal [facility] Comment on above: Performed By: #### C BC ####[place] Pmpccgdqdh[address] [place], [place] [address]DrSkylar Farhat Elvis MCH (RBC) [Entitic mass] 31.2 pg Normal 25.9-34.0 [facility] Comment on above: Performed By: #### C BC ####[place] Nqblhbpbqi85[address] [place], [place] [address]DrSkylar Fahrat Elvis MCHC (RBC) [Mass/Vol] 33.4 g/dL Normal 29.9-35.2 [facility] Comment on above: Performed By: #### C BC ####[place] M[address]zckmrojk[address] [place], [place] [address]Dr. Farhat Elvis MCV (RBC) [Entitic vol] 93.3 fL Normal 80.0-94.0 [facility] Comment on above: Performed By: #### C BC ####[place] Qgchdzripl3560 [place] [address]Dr. Farhat Leal MONO # 0.9 103/ul Critically high 0.3-0.8 [facility] Comment on above: Performed By: #### C BC ####[facility] [address]kgbmbc[address] [place] [address]DrSkylar Farhat Elvis Monocytes/100 WBC (Bld) 12.4 % Critically high 1.7-12.0 [facility] Comment on above: Performed By: #### C BC ####[facility] Jsmsbvbxtl[address] [place], [place] [address]Dr. Farhat Leal NEUT # 4.7 103/ul Normal 1.4-6.5 [facility] Comment on above: Performed By: #### C BC ####[facility] Mnccnzzjki[address] [place], [place] [address]Dr. Farhat Elvis Neutrophils/100 WBC (Bld) 65.3 % Normal 43.0-75.0 [facility] Comment on above: Performed By: #### C BC ####[facility] Rsblyztnvd9435[address] [place], [place] [address]Dr. Farhat Elvis Platelet mean volume (Bld) [Entitic vol] 9.9 fL Normal 9.5-13.5 [facility] Comment on above: Performed By: #### C BC ####[facility] Fuistqvpgy6313[address] [place], [place] [address]Dr. Madelynlorri Elvis PLT 180 103/ul Normal 150-450 [facility] Comment on above: Performed By: #### C BC ####[facility] Adyucxqtpj6387[address] [place], [place] [address]Dr. Madelynlorri Elvis RBC 4.30 106/ul Critically low 4.70-6.10 [facility] Comment on above: Performed By: #### C BC ####[facility] Gftrbxkvbp3596[address] [place], [place] [address]DrSkylar Leal WBC 7.2 103/ul Normal 4.0-11.0 [facility] Comment on above: Performed By: #### C BC ####[facility] Xycbmeatmm29[address] [place], [place] [address]Dr. Farhat Leal PTT HEPARIN MONITORon 2021 aPTT Coag (Bld) [Time] 26.7 s Critically low 39.5-54.2 [facility] Comment on above: Performed By: #### P TTHEP ####[facility] Extyspuygq5423[address] [place], [place] [address]Dr. Farhat Elvis aPTT Coag (Bld) [Time] 121.0 s Critically high 39.5-54. 2 [facility] Comment on above: Performed By: #### P TTHEP ####[facility] Izyrjqruza3127[address] [place], [place] [address]Dr. Farhat Elvis aPTT Coag (Bld) [Time] 27.6 s Critically low 39.5-54.2 [facility] Comment on above: Performed By: #### P TTHEP ####[facility] Hbcgkyiaxs33[address] [place], [place] [address]Dr. Farhat Elvis aPTT Coag (Bld) [Time] 139.0 s Critically high 39.5-54. 2 [facility] Comment on above: Performed By: #### P TTHEP ####[facility] Lyakrddchd034[address] [place], [place] [address]Dr. Farhat Elvis CBC AUTO DIFFon 09-19-2021 BASO # 0.0 103/ul Normal 0.0-0.1 [facility] Comment on above: Performed By: #### C BC ####[facility] Didmnmtlel4447[address] [place], [place] [address]Dr. Farhat Elvis Basophils/100 WBC (Bld) 0.5 % Normal 0.2-2.0 [facility] Comment on above: Performed By: #### C BC ####[facility] Jfhbuzdemq9556[address] [place], [place] [address]DrSkylar Leal EO # 0.2 103/ul Normal 0.0-0.7 [facility] Comment on above: Performed By: #### C BC ####[facility] Renmrqsikc2[address] [place] [address]Dr. Farhat Leal Eosinophils/100 WBC (Bld) 2.6 % Normal 0.9-7.0 [facility] Comment on above: Performed By: #### C BC ####[facility] Iukminiqcm97[address] [place] [address]Dr. Farhat Leal Erythrocyte distribution width (RBC) [Ratio] 12.5 % Normal 11.0-15.0 [facility] Comment on above: Performed By: #### C BC ####[facility] Oafxgqugql0[address] [place] [address]Dr. Farhat Leal Hematocrit (Bld) [Volume fraction] 39.2 % Critically low 42.0-54.0 [facility] Comment on above: Performed By: #### C BC ####[facility] Kxzdkuptcc660[address] [place], [place] [address]Dr. Farhat Leal Hemoglobin (Bld) [Mass/Vol] 13.3 g/dL Critically low 14.0-18.0 [facility] Comment on above: Performed By: #### C BC ####[facility] Izzxyjhbad675[address] [place], [place] [address]Dr. Farhat Leal IG # 0.08 10e3/ul Critically high 0.00-0.03 [facility] Comment on above: Performed By: #### C BC ####[facility] Lxvsejbcgh820814 [address] [place], [place] [address]Dr. Farhat Leal IG % 0.9 % Critically high 0.0-0.5 [facility] Comment on above: Performed By: #### C BC ####[facility] Yfyoxbckzt5084[address] [place], [place] [address]Dr. Madelynlorri Elvis LYMPH # 1.5 103/ul Normal 1.2-3.8 [facility] Comment on above: Performed By: #### C BC ####[facility] Vjouprzfzb343[address] [place], [place] [address]Dr. Farhat Leal Lymphocytes/100 WBC (Bld) 17.2 % Critically low 20.5-60.0 [facility] Comment on above: Performed By: #### C BC ####[facility] Osc[address]wejag[address] [place] [address]DrSkylar Leal MANUAL DIFF REQ NO Normal [facility] Comment on above: Performed By: #### C BC ####[facility] Hucvjzxqjq3[address] [place] [address]Dr. Farhat Leal MCH (RBC) [Entitic mass] 31.7 pg Normal 25.9-34.0 [facility] Comment on above: Performed By: #### C BC ####[facility] Jydlranqeq3125[address] [place], [place] [address]Dr. Farhat Leal MCHC (RBC) [Mass/Vol] 33.9 g/dL Normal 29.9-35.2 [facility] Comment on above: Performed By: #### C BC ####[facility] Mpkycppyvq5159[address] [place], [place] [address]DrSkylar Leal MCV (RBC) [Entitic vol] 93.3 fL Normal 80.0-94.0 [facility] Comment on above: Performed By: #### C BC ####[facility] Jqkopoqfke7877[address] [place], [place] [address]DrSkylar Leal MONO # 1.2 103/ul Critically high 0.3-0.8 [facility] Comment on above: Performed By: #### C BC ####[facility] Wdqvvqvhiv6998[address] [place], [place] [address]DrSkylar Leal Monocytes/100 WBC (Bld) 13.7 % Critically high 1.7-12.0 [facility] Comment on above: Performed By: #### C BC ####[facility] Saugmrlyuc9137[address] [place], [place] [address]DrSkylar Leal NEUT # 5.5 103/ul Normal 1.4-6.5 [facility] Comment on above: Performed By: #### C BC ####[facility] Fdmqjcrtcg8208[address] [place], [place] [address]DrSkylar Leal Neutrophils/100 WBC (Bld) 65.1 % Normal 43.0-75.0 [facility] Comment on above: Performed By: #### C BC ####[facility] W[address]qhkdru65[address] [place] [address]DrSkylar Farhat Leal Platelet mean volume (Bld) [Entitic vol] 9.6 fL Normal 9.5-13.5 [facility] Comment on above: Performed By: #### C BC ####[facility] Hbszgjlbqm7[address] [place] [address]DrSkylar Farhat Leal PLT 163 103/ul Normal 150-450 [facility] Comment on above: Performed By: #### C BC ####[facility] Gkzwgozaoc32[address] [place] [address]DrSkylar Farhat Leal RBC 4.20 106/ul Critically low 4.70-6.10 [facility] Comment on above: Performed By: #### C BC ####[facility] Hwvmpmewok7[address] [place], [place] [address]DrSkylar Farhat Elvis WBC 8.4 103/ul Normal 4.0-11.0 [facility] Comment on above: Performed By: #### C BC ####[facility] Jaceswbvit3895[address] [place], [place] [address]DrSkylar Farhat Leal POINT OF CARE GLUCOSEon Glucose [Mass/Vol] 300 mg/dL Critically high 74-106 T [facility] Comment on above: Performed By: #### P OCGLUC ####[facility] Gurzjckdmd927[address] [place], [place] [address]DrSkylar Farhat Elvis POTASSIUMon 09-19-2021 Potassium [Moles/Vol] 4.9 mmol/L Normal 3.5-5.1 [facility] Comment on above: Performed By: #### K ####[facility] Tvfqyogfgt0097[address] [place], [place] [address]DrSkylar Farhat Elvis PTT HEPARIN MONITORon 2021 aPTT Coag (Bld) [Time] 23.4 s Critically low 39.5-54.2 [facility] Comment on above: Result Comment: repe ated Performed By: #### P TTHEP ####[facility] Penlduqnix0028[address] [place], [place] [address]Dr. Farhat Elvis aPTT Coag (Bld) [Time] 101.2 s Critically high 39.5-54. 2 [facility] Comment on above: Performed By: #### P TTHEP ####[facility] Ugmvzprnnw360[address] [place], [place] [address]Dr. Farhat Leal aPTT Coag (Bld) [Time] 81.0 s Critically high 39.5-54. 2 [facility] Comment on above: Result Comment: Test Repeated. Critical Value Verified Performed By: #### P TTHEP ####[facility] Omalmvbrcb033[address] [place], [place] [address]DrSkylar Leal CBC AUTO DIFFon 09-18-2021 BASO # 0.0 103/ul Normal 0.0-0.1 [facility] Comment on above: Performed By: #### C BC ####[facility] Fwlxtvrkif1964[address] [place], [place] [address]DrSkylar Leal Basophils/100 WBC (Bld) 0.4 % Normal 0.2-2.0 [facility] Comment on above: Performed By: #### C BC ####[facility] Rxqkfjcxnz410414 [address] [place], [place] [address]DrSkylar Leal EO # 0.1 103/ul Normal 0.0-0.7 [facility] Comment on above: Performed By: #### C BC ####[facility] Gegclujhoj4327[address] [place], [place] [address]DrSkylar Leal Eosinophils/100 WBC (Bld) 0.8 % Critically low 0.9-7.0 [facility] Comment on above: Performed By: #### C BC ####[facility] Ubejuclaas9[address] [place], [place] [address]DrSkylar Leal Erythrocyte distribution width (RBC) [Ratio] 12.4 % Normal 11.0-15.0 [facility] Comment on above: Performed By: #### C BC ####[facility] Bcjcgqilql027[address] [place], [place] [address]DrSkylar Leal Hematocrit (Bld) [Volume fraction] 41.7 % Critically low 42.0-54.0 [facility] Comment on above: Performed By: #### C BC ####[facility] [address]ljdkip[address] [place] [address]DrSkylar Leal Hemoglobin (Bld) [Mass/Vol] 14.1 g/dL Normal 14.0-18.0 [facility] Comment on above: Performed By: #### C BC ####[facility] Ehviqntayr44[address] [place] [address]Dr. Farhat Leal IG # 0.06 10e3/ul Critically high 0.00-0.03 The [facility] Comment on above: Performed By: #### C BC ####[facility] Jinilzetus7455 [place] [address]DrSkylar Leal IG % 0.6 % Critically high 0.0-0.5 [facility] Comment on above: Performed By: #### C BC ####[facility] Awvbjjcvuc0839 [place] [address]DrSkylar Leal LYMPH # 0.6 103/ul Critically low 1.2-3.8 The [facility] Comment on above: Performed By: #### C BC ####[facility] Jcovivufti5[address] [place] [address]DrSkylar Leal Lymphocytes/100 WBC (Bld) 6.5 % Critically low 20.5-60.0 [facility] Comment on above: Performed By: #### C BC ####[facility] Hvwzupanav[address] [place] [address]DrSkylar Leal MANUAL DIFF REQ NO Normal [facility] Comment on above: Performed By: #### C BC ####[facility] Qdvdnuiqqo4381 [place] [address]DrSkylar Leal MCH (RBC) [Entitic mass] 31.6 pg Normal 25.9-34.0 [facility] Comment on above: Performed By: #### C BC ####[facility] Kipivgosdn6178[address] [place], [place] [address]DrSkylar Leal MCHC (RBC) [Mass/Vol] 33.8 g/dL Normal 29.9-35.2 [facility] Comment on above: Performed By: #### C BC ####[facility] Szsgogpymq0435 [place] [phone]. Farhat Elvis MCV (RBC) [Entitic vol] 93.5 fL Normal 80.0-94.0 [facility] Comment on above: Performed By: #### C BC ####[facility] Rocrikdoni04[address] [place] [address]Dr. Farhat Elvis MONO # 1.0 103/ul Critically high 0.3-0.8 [facility] Comment on above: Performed By: #### C BC ####[facility] Ttisanagug[address] [place] [address]Dr. Farhat Leal Monocytes/100 WBC (Bld) 10.4 % Normal 1.7-12.0 [facility] Comment on above: Performed By: #### C BC ####[facility] Sheheqpkpf4709[address] [place], [place] [address]Dr. Farhat Leal NEUT # 7.8 103/ul Critically high 1.4-6.5 [facility] Comment on above: Performed By: #### C BC ####[facility] Iimkqpddtg2733[address] [place], [place] [address]Dr. Farhat Leal Neutrophils/100 WBC (Bld) 81.3 % Critically high 43.0-75.0 [facility] Comment on above: Performed By: #### C BC ####[facility] Ajswxxqkhy8376 [place] [address]Dr. Madelynlorri Leal Platelet mean volume (Bld) [Entitic vol] 9.9 fL Normal 9.5-13.5 [facility] Comment on above: Performed By: #### C BC ####[facility] Gpikjydpbk86[address] [place] [phone]. Farhat Leal PLT 169 103/ul Normal 150-450 [facility] Comment on above: Performed By: #### C BC ####[facility] Mmrketdnnq0869 [place] [address]Dr. Farhat Leal RBC 4.46 106/ul Critically low 4.70-6.10 [facility] Comment on above: Performed By: #### C BC ####[facility] U[address]esyeir[address] [place] [phone]. Farhat Leal WBC 9.6 103/ul Normal 4.0-11.0 [facility] Comment on above: Performed By: #### C BC ####[facility] Oxwdgloaqf0643 [place] [phone]. Farhat Leal BASO # 0.0 103/ul Normal 0.0-0.1 [facility] Comment on above: Performed By: #### C BC ####[facility] Abnewrzdhy8454[address] [place], [place] [address]Dr. Farhat Leal Basophils/100 WBC (Bld) 0.4 % Normal 0.2-2.0 [facility] Comment on above: Performed By: #### C BC ####[facility] Xeohvczeyz[address] [place], [place] [address]Dr. Farhat Leal EO # 0.1 103/ul Normal 0.0-0.7 [facility] Comment on above: Performed By: #### C BC ####[facility] Tffjejttot5513[address] [place], [place] [address]Dr. Farhat Leal Eosinophils/100 WBC (Bld) 1.1 % Normal 0.9-7.0 [facility] Comment on above: Performed By: #### C BC ####[facility] Nxdpwyrcnl4125[address] [place], [place] [address]Dr. Farhat Leal Erythrocyte distribution width (RBC) [Ratio] 12.6 % Normal 11.0-15.0 [facility] Comment on above: Performed By: #### C BC ####[facility] Zykdvokrny3317[address] [place], [place] [address]Dr. Farhat Leal Hematocrit (Bld) [Volume fraction] 40.8 % Critically low 42.0-54.0 [facility] Comment on above: Performed By: #### C BC ####[facility] Cviodirmrc3584 [place] [address]Dr. Farhat Leal Hemoglobin (Bld) [Mass/Vol] 13.6 g/dL Critically low 14.0-18.0 [facility] Comment on above: Performed By: #### C BC ####[facility] Gnosqooisk0392 [place] [address]Dr. Farhat Leal IG # 0.08 10e3/ul Critically high 0.00-0.03 The [facility] Comment on above: Performed By: #### C BC ####[facility] Eydpbefinf33[address] [place] [address]Dr. Farhat Leal IG % 0.9 % Critically high 0.0-0.5 [facility] Comment on above: Performed By: #### C BC ####[facility] Srmfhrtfpe[address] [place] [address]Dr. Farhat Leal LYMPH # 0.8 103/ul Critically low 1.2-3.8 The [facility] Comment on above: Performed By: #### C BC ####[facility] Fydhhkxazk9551 [place] [address]Dr. Farhat Leal Lymphocytes/100 WBC (Bld) 8.7 % Critically low 20.5-60.0 [facility] Comment on above: Performed By: #### C BC ####[facility] Klcgnupnbe7793 [place] [address]Dr. Farhat Leal MANUAL DIFF REQ NO Normal [facility] Comment on above: Performed By: #### C BC ####[facility] Pndomfqprt4199 [place] [address]Dr. Farhat Leal MCH (RBC) [Entitic mass] 31.6 pg Normal 25.9-34.0 [facility] Comment on above: Performed By: #### C BC ####[facility] Faerwayrqz5019[address] [place], [place] [address]Dr. Farhat Leal MCHC (RBC) [Mass/Vol] 33.3 g/dL Normal 29.9-35.2 [facility] Comment on above: Performed By: #### C BC ####[facility] Dweuibxyee9946 [place] [phone]. Farhat Leal MCV (RBC) [Entitic vol] 94.9 fL Critically high 80.0-94.0 [facility] Comment on above: Performed By: #### C BC ####[facility] Dyuejjglsu9160 [place] [phone]. Farhat Leal MONO # 1.0 103/ul Critically high 0.3-0.8 [facility] Comment on above: Performed By: #### C BC ####[facility] Wlgyafkufa220[address] [place], [place] [address]Dr. Farhat Leal Monocytes/100 WBC (Bld) 11.3 % Normal 1.7-12.0 [facility] Comment on above: Performed By: #### C BC ####[facility] Cqemdocpim1482[address] [place], [place] [address]Dr. Farhat Leal NEUT # 6.9 103/ul Critically high 1.4-6.5 [facility] Comment on above: Performed By: #### C BC ####[facility] Cbhrivlaek8554[address] [place], [place] [address]Dr. Farhat Leal Neutrophils/100 WBC (Bld) 77.6 % Critically high 43.0-75.0 [facility] Comment on above: Performed By: #### C BC ####[facility] [address]tdlxym[address] [place], [place] [address]Dr. Farhat Leal Platelet mean volume (Bld) [Entitic vol] 9.7 fL Normal 9.5-13.5 [facility] Comment on above: Performed By: #### C BC ####[facility] Sfoupcafkw2274 [place] [phone]. Farhat Elvis PLT 171 103/ul Normal 150-450 [facility] Comment on above: Performed By: #### C BC ####[facility] Kmgkvhscgx[address] [place], [place] [address]Dr. Farhat Elvis RBC 4.30 106/ul Critically low 4.70-6.10 [facility] Comment on above: Performed By: #### C BC ####[facility] Ofstcmgyqm350[address] [place], [place] [address]Dr. Farhat Leal WBC 8.9 103/ul Normal 4.0-11.0 [facility] Comment on above: Performed By: #### C BC ####[facility] Nnftdkottl6370 [place] [address]Dr. Madelynlorri Leal Covid-19 PCR (CVDTB)on SARS-CoV-2 (COVID-19) RNA JOSH+probe Ql (Unsp spec) Not detected Normal NOT DETECTED [facility] Comment on above: Result Comment: When diagnostic [...] for this test is supported by the [place] of [employer] and Human Service's declaration that [...] be used). Performed By: #### C VDTBH ####[facility] Zdwbqohvwr1532 [place] [address]Dr. Farhat Leal PROF 14(COMP METB)on 022 Albumin [Mass/Vol] 2.6 g/dL Critically low 3.4-5.0 Th e [facility] Comment on above: Performed By: #### C MP ####[facility] Nurxbfkiax7[address] [place], [place] [address]DrSkylar Leal Albumin/Globulin [Mass ratio] 0.7 {ratio} Normal [facility] Comment on above: Performed By: #### C MP ####[facility] Ongancqarh35[address] [place] [address]DrSkylar Leal ALP [Catalytic activity/Vol] 88 U/L Normal 46-116 [facility] Comment on above: Performed By: #### C MP ####[facility] Opiszuweao85[address] [place] [address]Dr. Farhat Leal ALT [Catalytic activity/Vol] 15 U/L Critically low 16-63 [facility] Comment on above: Performed By: #### C MP ####[facility] Ombeybbqwb1765 [place] [address]Dr. Farhat Leal Anion gap [Moles/Vol] 11.7 mmol/L Normal [facility] Comment on above: Performed By: #### C MP ####[facility] Exawxukedv2214[address] [place], [place] [address]Dr. Farhat Leal AST [Catalytic activity/Vol] 25 U/L Normal 15-37 [facility] Comment on above: Performed By: #### C MP ####[facility] Pzkhdtvatt7[address] [place], [place] [address]Dr. Farhat Leal Bilirubin [Mass/Vol] 0.6 mg/dL Normal 0.2-1.0 [facility] Comment on above: Performed By: #### C MP ####[facility] Ldcsoqqmye368[address] [place], [place] [address]Dr. Farhat Leal Calcium [Mass/Vol] 8.9 mg/dL Normal 8.5-10.1 [facility] Comment on above: Performed By: #### C MP ####[facility] Bodyiqycee934[address] [place], [place] [address]Dr. Farhat Leal Chloride [Moles/Vol] 93 mmol/L Critically low 98-107 [facility] Comment on above: Performed By: #### C MP ####[facility] Ozdtpcpuht[address] [place], [place] [id number]. Farhat Leal CO2 [Moles/Vol] 28.9 mmol/L Normal 21.0-32.0 [facility] Comment on above: Performed By: #### C MP ####[facility] Lkwbyyxily1205[address] [place], [place] [address]Dr. Farhat Leal Creatinine [Mass/Vol] 2.09 mg/dL Critically high 0.70-1.30 [facility] Comment on above: Performed By: #### C MP ####[facility] Xfhdwbrgkl8007 [place] [address]Dr. Farhat Leal EGFR-AF [place] 38 mL/min/1.73m2 Critically low >=60 [facility] Comment on above: Performed By: #### C MP ####[facility] Jwyrdqaobp6748 [place] [address]Dr. Farhat Leal EGFR-NON AF [place] 31 mL/min/1.73m2 Critically low >=60 [facility] Comment on above: Performed By: #### C MP ####[facility] Sfpwekrjcc5076[address] [place], [place] [address]Dr. Farhat Leal Globulin (S) [Mass/Vol] 3.7 g/dL Normal [facility] Comment on above: Performed By: #### C MP ####[facility] Rgizqpqcbu5524[address] [place], [place] [address]Dr. Farhat Leal Glucose [Mass/Vol] 214 mg/dL Critically high 74-106 T [facility] Comment on above: Performed By: #### C MP ####[place] Cnzhcjxbnl7[address] [place], [place] [address]Dr. Farhat Leal Potassium [Moles/Vol] 5.6 mmol/L Critically high 3.5-5.1 [facility] Comment on above: Performed By: #### C MP ####[facility] Bqzdierxtl064[address] [place], [place] [address]Dr. Farhat Leal Protein [Mass/Vol] 6.3 g/dL Critically low 6.4-8.2 [facility] Comment on above: Performed By: #### C MP ####[place] Xqrsqdkffv7275[address] [place], [place] [address]Dr. Farhat Leal Sodium [Moles/Vol] 128 mmol/L Critically low 136-145 [facility] Comment on above: Performed By: #### C MP ####[facility] Csrmlthljz7828[address] [place], [place] [address]Dr. Farhat Leal Urea nitrogen [Mass/Vol] 65.0 mg/dL Critically high 7.0-18.0 [facility] Comment on above: Performed By: #### C MP ####[facility] Umvupvodoc8759 [place] [address]Dr. Farhat Leal Urea nitrogen/Creatinine [Mass ratio] 31.1 mg/mg Normal [facility] Comment on above: Performed By: #### C MP ####[facility] Bdzocqenaf9652 [place] [address]Dr. Farhat Leal Albumin [Mass/Vol] 2.5 g/dL Critically low 3.4-5.0 [facility] Comment on above: Performed By: #### T MYRIAM, CMP ####[facility] Piizxytbfn6[address] [place], [place] [address]Dr. Farhat Leal Albumin/Globulin [Mass ratio] 0.7 {ratio} Normal [facility] Comment on above: Performed By: #### T MYRIAM, CMP ####[facility] Uofxcyvloa[address] [place], [place] [address]Dr. Farhat Leal ALP [Catalytic activity/Vol] 83 U/L Normal 46-116 [facility] Comment on above: Performed By: #### T MYRIAM, CMP ####[facility] Fjnivingtl477[address] [place], [place] [address]Dr. Farhat Leal ALT [Catalytic activity/Vol] 16 U/L Normal 16-63 [facility] Comment on above: Performed By: #### T MYRIAM, CMP ####[facility] Xaplnlxdjn9687[address] [place], [place] [address]Dr. Farhat Leal Anion gap [Moles/Vol] 9.7 mmol/L Normal [facility] Comment on above: Performed By: #### T MYRIAM, CMP ####[facility] Hhgnwzeenj1158[address] [place], [place] [address]Dr. Farhat Leal AST [Catalytic activity/Vol] 27 U/L Normal 15-37 [facility] Comment on above: Performed By: #### T MYRIAM, CMP ####[facility] Iqlujawvcc4859[address] [place], [place] [address]Dr. Farhat Leal Bilirubin [Mass/Vol] 0.5 mg/dL Normal 0.2-1.0 [facility] Comment on above: Performed By: #### T SH, CMP ####[facility] Xfsjethvrr6577[address] [place], [place] [address]Dr. Farhat Leal Calcium [Mass/Vol] 8.8 mg/dL Normal 8.5-10.1 [facility] Comment on above: Performed By: #### T SH, CMP ####[facility] Mnfpyxalel7476[address] [place], [place] [address]Dr. Madelynlorri Leal Chloride [Moles/Vol] 95 mmol/L Critically low 98-107 [facility] Comment on above: Performed By: #### T SH, CMP ####[facility] Kkjbyilwgm8432[address] [place], [place] [address]Dr. Madelynlorri Leal CO2 [Moles/Vol] 30.5 mmol/L Normal 21.0-32.0 The [facility] Comment on above: Performed By: #### T SH, CMP ####[facility] Yxwzacxbuk2775[address] [place], [place] [address]Dr. Farhat Elvis Creatinine [Mass/Vol] 2.18 mg/dL Critically high 0.70-1.30 [facility] Comment on above: Performed By: #### T SH, CMP ####[facility] Lxyiwgsyjq9633[address] [place], [place] [address]Dr. Madelynlorri Elvis EGFR-AF [place] 36 mL/min/1.73m2 Critically low >=60 [facility] Comment on above: Performed By: #### T SH, CMP ####[facility] Wjtrshohee68[address] [place], [place] [address]Dr. Madelynlorri Elvis EGFR-NON AF [place] 30 mL/min/1.73m2 Critically low >=60 [facility] Comment on above: Performed By: #### T SH, CMP ####[facility] Jhnbsjdatd[address] [place], [place] [address]Dr. Farhat Leal Globulin (S) [Mass/Vol] 3.5 g/dL Normal [facility] Comment on above: Performed By: #### T SH, CMP ####[facility] Azlwmhjcxk198[address] [place], [place] [address]Dr. Madelynlorri Leal Glucose [Mass/Vol] 141 mg/dL Critically high 74-106 T [facility] Comment on above: Performed By: #### T MYRIAM, CMP ####[facility] Drynumsyxt9[address] [place], [place] [address]Dr. Madelynlorri Leal Potassium [Moles/Vol] 5.2 mmol/L Critically high 3.5-5.1 [facility] Comment on above: Performed By: #### T MYRIAM, CMP ####[facility] Uxuhkvpgru99[address] [place], [place] [address]Dr. Farhat Leal Protein [Mass/Vol] 6.0 g/dL Critically low 6.4-8.2 [facility] Comment on above: Performed By: #### T MYRIAM, CMP ####[place] Umhurnvgan8[address] [place], [place] [address]Dr. Farhat Leal Sodium [Moles/Vol] 130 mmol/L Critically low 136-145 [facility] Comment on above: Performed By: #### T MYRIAM, CMP ####[place] [id number] [place], [place] [address]Dr. Farhat Leal Urea nitrogen [Mass/Vol] 63.0 mg/dL Critically high 7.0-18.0 [facility] Comment on above: Performed By: #### T MYRIAM, CMP ####[place] [address] [place], [place] [address]Dr. Farhat Leal Urea nitrogen/Creatinine [Mass ratio] 28.9 mg/mg Normal [facility] Comment on above: Performed By: #### T MYRIAM, CMP ####[place] [address] [place], [place] [address]Dr. Farhat Leal PROTIMEon 09-18-2021 INR Coag (PPP) [Relative time] 1.06 {INR} Normal [facility] Comment on above: Performed By: #### P T, PTT ####[place] [address] [place], [place] [address]Dr. Farhat Leal INR GUIDELINES SEE BELOW Normal [facility] Comment on above: Result Comment: MALINA RED INR: 2.0 - 3.0 CONDITIONS NOT LISTED BELOW 2.5 - 3.5 FOR PROSTHETIC HEART VALVE REPLACEMENT 2.5 - 3.5 RECURRENT THROMBOSIS Performed By: #### P T, PTT ####[place] [address] [place] [address]Dr. Farhat Leal PT Coag (PPP) [Time] 11.4 s Normal 9.0-11.6 [facility] Comment on above: Performed By: #### P T, PTT ####[place] [address] [place] [address]Dr. Farhat Leal PTTon 09-18-2021 aPTT Coag (Bld) [Time] 27.9 s Normal 22.3-36.2 [facility] Comment on above: Performed By: #### P T, PTT ####[place] [address] [place] [address]Dr. Farhat Leal TSHon 09-18-2021 TSH 7.099 uIU/mL Critically high 0.358-3.740 [facility] Comment on above: Performed By: #### T SH, CMP ####[place] [address] [place] [address]Dr. Farhat Leal US SALOME DOP LEG RTon 09-19-19 22 US SALOME DOP LEG RT Normal [facility] XR CHEST 1 Von 09-18-2021 XR CHEST 1 V Normal [facility] XR HIP RT 2 3V W PELVISon XR HIP RT 2 3V W PELVIS Normal [facility] Vital Signs Date Time Vital Sign Value Performing Clinician Facility 03-18-2023 13:37-0500 Body temperature 98.01 [degF] [place] [email or web address] DO Work Phone: [facility] 03-18-2023 13:37-0500 Diastolic blood pressure 64 mm[Hg] [facility] DO Work Phone: [facility] 03-18-2023 13:37-0500 Heart rate 72 /min [facility] DO Work Phone: [facility] 03-18-2023 13:37-0500 SaO2% (BldA) [Mass fraction] 98 % Ni Petznick DO Work Phone: [facility] 03-18-2023 13:37-0500 Systolic blood pressure 118 mm[Hg] Ni Petznick DO Work Phone: [facility] 07-20-2022 13:35-0400 Body temperature 97.4 [degF] DO Devon Ball Work Phone: [facility] 07-20-2022 13:35-0400 Diastolic blood pressure 50 mm[Hg] DO Devon Ball Work Phone: [facility] 07-20-2022 13:35-0400 Heart rate 67 /min DO Devon Ball Work Phone: [facility] 07-20-2022 13:35-0400 Respiratory rate 20 /min DO Devon Ball Work Phone: [facility] 07-20-2022 13:35-0400 Systolic blood pressure 98 mm[Hg] DO Devon Ball Work Phone: [facility] 06-29-2022 14:46-0400 Body height 193.04 cm DO Devon Ball Work Phone: [facility] 02-26-2022 13:11-0500 Body temperature 96.6 [degF] Hina Peterson MD Work Phone: [facility] 02-26-2022 13:11-0500 Diastolic blood pressure 75 mm[Hg] Hina Peterson MD Work Phone: [facility] 02-26-2022 13:11-0500 Heart rate 75 /min Hina Peterson MD Work Phone: [facility] 02-26-2022 13:11-0500 Systolic blood pressure 88 mm[Hg] Hina Peterson MD Work Phone: [facility] 02-05-2022 08:29-0500 Body temperature 96.69 [degF] [facility] Work Phone: [facility] 02-05-2022 08:29-0500 Diastolic blood pressure 42 mm[Hg] [facility] Work Phone: [facility] 02-05-2022 08:29-0500 Heart rate 79 /min [facility] Work Phone: [facility] 02-05-2022 08:29-0500 SaO2% (BldA) [Mass fraction] 100 % [facility] Work Phone: [facility] 02-05-2022 08:29-0500 Systolic blood pressure 72 mm[Hg] [facility] Work Phone: [facility] 01-12-2022 11:00-0500 Diastolic blood pressure 54 mm[Hg] Alissa Major AGRONOMY TEACHER.HEALTH AND SAFETY CONSULTANT Work Phone: [facility] 01-12-2022 11:00-0500 Heart rate 88 /min Alissa Major AGRONOMY TEACHER.HEALTH AND SAFETY CONSULTANT Work Phone: [facility] 01-12-2022 11:00-0500 SaO2% (BldA) [Mass fraction] 93 % Alissa Major AGRONOMY TEACHER.HEALTH AND SAFETY CONSULTANT Work Phone: [facility] 01-12-2022 11:00-0500 Systolic blood pressure 96 mm[Hg] Alissa Major AGRONOMY TEACHER.HEALTH AND SAFETY CONSULTANT Work Phone: [facility] 01-12-2022 10:12-0500 Body temperature 97.9 [degF] Alissa Major AGRONOMY TEACHER.HEALTH AND SAFETY CONSULTANT Work Phone: [facility] 01-12-2022 10:12-0500 Respiratory rate 18 /min Alissa Major AGRONOMY TEACHER.HEALTH AND SAFETY CONSULTANT Work Phone: [facility] 11-17-2021 15:59-0400 Body height 193 cm No Reeder DO Work Phone: [facility] 11-17-2021 15:59-0400 Body weight 111.58 kg No Reeder DO Work Phone: [facility] 11-17-2021 15:59-0400 Diastolic blood pressure 59 mm[Hg] No Reeder DO Work Phone: [facility] 11-17-2021 15:59-0400 Heart rate 86 /min No Reeder DO Work Phone: [facility] 11-17-2021 15:59-0400 SaO2% (BldA) [Mass fraction] 97 % No Reeder DO Work Phone: [facility] 11-17-2021 15:59-0400 Systolic blood pressure 104 mm[Hg] No Reeder DO Work Phone: [facility] Encounters Encounter Date Encounter Type Care Provider Facility Start: 03-18-2023 End: 03-18-2023 ambulatory NI CABRERA Not Available Start: 03-18-2023 End: 03-18-2023 Office outpatient visit 25 minutes Ni Cabrera DO Work Phone: [facility] [address] Comment on above: 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 ([facility]/HCC) (Primary Dx); 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 ([facility]/HCC); Type 1 diabetes mellitus with nephropathy ([facility]); Type 1 diabetes mellitus with hypoglycemia and without coma ([facility]); 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 ([facility]/HCC) Start: 02-17-2023 End: 02-17-2023 ambulatory Devon Lillie Other [facility] Other Start: 02-17-2023 Telephone encounter Devon Moreira [facility] Start: 01-14-2023 End: 01-14-2023 ambulatory Devon Lillie Other [facility] Other Start: 01-14-2023 [facility] are[facility]day minor complj 15 min [facility] Start: 12-10-2022 End: 12-10-2022 ambulatory Devon Lillie Other [facility] Other Start: 12-10-2022 Sbsq nursing facil c are/day minor complj 15 min [facility] Start: 11-12-2022 End: 11-12-2022 ambulatory Devon Lillie Other [facility] Other Start: 11-12-2022 Sbsq nursing facil c are/day minor complj 15 min [facility] Start: 10-16-2022 Refill Asia Pike MD Work Phone: [facility] Comment on above: Med Change Request Start: 10-12-2022 End: 10-12-2022 ambulatory Devon Moreira Other [facility] Other Start: 10-12-2022 Telephone encounter Devon NUNEZ G [facility] Start: 10-08-2022 End: 10-08-2022 ambulatory Devon Moreira Other [facility] Other Start: 10-08-2022 Sbsq nursing facil c are/day new problem 25 min [facility] Start: 09-22-2022 Refill Ariadna Mcdowell [facility] Comment on above: Rx Refills Start: 09-10-2022 End: 09-10-2022 ambulatory Devon Moreira Other [facility] Other Start: 09-10-2022 Sbsq nursing facil c are/day new problem 25 min [facility] Start: 09-09-2022 End: 09-09-2022 ambulatory [facility] Start: 08-06-2022 End: 08-06-2022 ambulatory Devon Moreira Other [facility] Other Start: 08-06-2022 Sbsq nursing facil c are/day new problem 25 min [facility] Start: 07-22-2022 End: 07-22-2022 ambulatory Devon Moreira Other [facility] Other Start: 07-22-2022 Telephone encounter Devon Moreira MAYRA G [facility] Start: 07-20-2022 End: 07-20-2022 ambulatory Sadia Aguilar Facility:[facility] Start: 07-20-2022 End: 07-20-2022 ambulatory DO Devon Moreira Work Phone: [facility] Work Phone: Start: 07-20-2022 End: 07-20-2022 Discharged Recurring DO Devon Moreira Work Phone: [facility] Work Phone: Start: 07-13-2022 End: 07-13-[address] DEVON MOREIRA Facility:[facility] Start: 07-10-2022 End: 07-10-[address] DEVON MOREIRA Facility:[facility] Start: 07-03-2022 End: 07-03-[address] DEVON MOREIRA Facility:[facility] Start: 06-26-2022 End: 06-26-[address] DEVON MOREIRA Facility:[facility] Start: 06-26-2022 End: 06-26-[address] DEVON MOREIRA Facility:[facility] Start: 06-25-2022 End: 06-25-2022 ambulatory Devon Moreira Other [facility] Other Start: 06-25-2022 Sbsq nursing facil c are/day minor complj 15 min Devon Moreira [facility] Start: 06-19-2022 End: 06-19-[address] DEVON MOREIRA Facility:[facility] Start: 06-15-2022 End: 07-15-2022 ambulatory SHAIKH Kate MURRAY Facility:[facility] Start: 06-12-2022 End: 06-12-[address] DOCTOR WALSH Facility:[facility]1 Start: 06-05-2022 Sbsq nursing facil c are/day new problem 25 min [facility] Start: 06-05-2022 End: 06-05-[address] DEVON MOREIRA [facility] [employer] Other Start: 05-29-2022 End: 05-29-[address] DEVON MOREIRA Facility:[facility]1 Start: 05-22-2022 End: 05-22-[address] DEVON MOREIRA Facility:[facility] Start: 05-20-2022 End: 05-20-[address] DEVON MOREIRA Facility:[facility]1 Start: 05-18-2022 End: 06-12-2022 ambulatory SHAIKH Kate MURRAY Facility:[facility]1 Start: 05-15-2022 End: 05-15-[address] DEVON MOREIRA Facility:[facility]1 Start: 05-13-2022 End: 05-13-2022 ambulatory Van Olivarez AGRONOMY TEACHER.HEALTH AND SAFETY CONSULTANT Work Phone: [facility] Comment on above: results Start: 05-13-2022 E-mail encounter fro m caregiver Van Olivarez AGRONOMY TEACHER.HEALTH AND SAFETY CONSULTANT Work Phone: [facility] Start: 05-08-2022 End: 05-08-[address] DEVON MOREIRA Facility:[facility]1 Start: 05-07-2022 End: 05-07-2022 ambulatory Devon Moreira Other [facility] Other Start: 05-07-2022 [facility] nursing facil c are/day new problem 25 min Devon Moreira [facility] Start: 05-06-2022 End: 05-06-[address] [...] MOREIRA Facility:H1 Start: 04-02-2022 ambulatory Van cortes AGRONOMY TEACHER.HEALTH AND SAFETY CONSULTANT Work Phone: [facility] Start: 04-01-2022 End: 04-01-[address] DEVON MOREIRA Facility:[facility]1 Start: 03-22-2022 Anne Pike MD Work Phone: [facility] Comment on above: Med Change Request Start: 03-21-2022 ambulatory [facility] H FAWWAD Facilit y:H1 Start: 03-11-2022 End: 03-11-[address] DEVON MOREIRA Facility:[facility]1 Start: 03-10-2022 End: 03-10-2022 ambulatory MILAGRO [facility] Start: 02-27-2022 Refill Samira Serna [facility] Comment on above: Rx Refills Start: 02-26-2022 End: 02-26-2022 ambulatory DEVON MOREIRA Facility:[facility] Start: 02-26-2022 End: 02-26-2022 Patient encounter procedure [...] Start: 02-05-2022 End: 02-06-2022 ambulatory ARTUR CHEN Facility:[facility] Start: 02-05-2022 End: 02-05-2022 Patient encounter procedure [facility] Work Phone: [facility] Comment on above: Kidney replaced by t ransplant (Primary Dx); 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; snf current use of immunosuppressive drug Start: 01-26-2022 End: 01-26-[address] DEVON MOREIRA Facility:[facility]1 Start: 01-20-2022 Telephone encounter Van Olivarez APRN.HEALTH AND SAFETY CONSULTANT Work Phone: Kidney [facility] Comment on above: Results Start: 01-19-2022 End: 01-19-[address] DEVON MOREIRA Facility:[facility]1 Start: 01-16-2022 ambulatory SHAIKH Kate MURRAY Facilit y:H1 Start: 01-12-2022 End: 01-12-2022 Subsequent hospital visit by physician Alissa Chavira APRN.HEALTH AND SAFETY CONSULTANT Work Phone: Angio Comment on above: ILIANA (acute kidney in jury) ([facility]) [N17.9] Start: 12-30-2021 End: 12-30-2021 ambulatory Paresh Fonseca MD Work Phone: Infectious Disease Comment on above: MRSA bacteremia (Arabella munira Dx); Diabetic foot ulcer with osteomyelitis (HCC) Start: 12-30-2021 End: 12-30-2021 Telemedicine consultation with patient Paresh Fonseca MD Work Phone: [facility] Start: 12-29-2021 End: 12-29-2021 ambulatory [...] Start: 12-08-2021 Orders Only Artur Burger charles AGRONOMY TEACHER.HEALTH AND SAFETY CONSULTANT Work Phone: [facility] Comment on above: Kidney replaced by t ransplant (Primary Dx) Start: 12-07-2021 ambulatory Paresh Fonseca MD Work Phone: [facility] Comment on above: CoPat Start (copat s top 12/27/21) Start: 12-05-2021 Telephone encounter Paresh Fonseca MD Work Phone: Infectious Disease Comment on above: Patient Update (evus held discussion/) Start: 12-01-2021 Follow-up encounter [facility] Provider [facility] Start: 12-01-2021 Patient encounter procedure [facility] Prov ider [facility] Department Start: 11-23-2021 End: 11-28-2021 Evaluation and [...] management encounter Start: 11-14-2021 End: 11-15-2021 ambulatory [facility] Facility:H1 Start: 10-24-2021 End: 11-15-2021 ambulatory DIAMOND Kate WHEAT Facility:H1 Start: 10-22-2021 End: 10-23-2021 ambulatory [facility] Facility:[facility]1 Start: 10-06-2021 ambulatory Van cortes AGRONOMY TEACHER.HEALTH AND SAFETY CONSULTANT Work Phone: [facility] Start: 09-30-2021 Refill Asia Pike MD Work Phone: [facility] Comment on above: Refill Request Start: 09-19-2021 End: 09-24-2021 Evaluation and management of inpatient DR PROSPER LEES Facility:H1 Start: 09-18-2021 End: 09-19-[address] DEVON MOREIRA Facility:[facility]1 Start: 07-11-2021 Refill Asia Pike MD Work Phone: [facility] Comment on above: Refill Request Start: 06-05-2021 Telephone encounter Van Kuldeep Olivarez AGRONOMY TEACHER.HEALTH AND SAFETY CONSULTANT Work Phone: [facility] Comment on above: Results Start: 02-05-2021 End: 02-13-2021 ambulatory UNKNOWN PROVIDER Facility:[facility] Procedures Date Procedure Procedure Detail Performing Clinician Start: 03-18-2023 Hemoglobin glycosyla rk a1c Ni Cabrera DO Work Phone: Start: 02-05-2022 Creatinine other source Asia Pike MD Work Phone: Start: 02-05-2022 Urnls dip stick/tabl et rgnt auto w/o microscopy Asia Pike MD Work Phone: Start: 01-12-2022 Prothrombin time Alissa Chavira AGRONOMY TEACHER.HEALTH AND SAFETY CONSULTANT Work Phone: Start: 12-01-2021 PACEMAKER CLINIC CHECK [facility] Provider Start: 11-29-2021 Microscopic examinat ion of blood, culture DR PROSPER LEES Comment on above: Performed By: #### B [id number] ####[place] [id number] [place] [address]DrSkylar Leal Start: 11-27-2021 Insertion of Infusio n [...] renal transplant KIDNEY TRANSPLANT STATUS Van Olivarez AGRONOMY TEACHER.HEALTH AND SAFETY CONSULTANT Work Phone: History of renal transplant Kidney replaced by transplant Artur Leesjasvir AGRONOMY TEACHER.HEALTH AND SAFETY CONSULTANT Work Phone: History of renal transplant Kidney replaced by transplant [facility] Work Phone: History of renal transplant Devon Lillie Other History of renal transplant Kidney replaced by transplant Asia Pike MD Work Phone: Plan of Treatment Date Care Activity Detail Author Start: 06-17-2023 End: 06-17-2023 Patient encounter procedure 06/17/2023 2:15 PM EDT Office Visit [facility] [address] [place] [id number] Ni Cabrera DO [address] [place] [address] [facility] [address] Start: 06-16-2023 Hemoglobin A1c measurement Diabetes: Hemoglobin A1C [facility] Start: 02-26-2023 BP CONTROLLED (<130/80) BP CONTROLLE D (<130/80) [facility] Start: 02-05-2023 BP CONTROLLED (<130/80) BP CONTROLLE D (<130/80) [facility] Start: 01-12-2023 BP CONTROLLED (<130/80) BP CONTROLLE D (<130/80) [facility] Start: 11-17-2022 BP CONTROLLED (<130/80) BP CONTROLLE D (<130/80) [facility] Start: 10-16-2022 Influenza vaccination C [facility] Start: 05-15-2022 Medicare Annual Wellness (AWV) Medicare Annual Wellness (AWV) [facility] Start: 04-08-2022 BP CONTROLLED (<130/80) BP CONTROLLE D (<130/80) [facility] Start: 02-15-2022 ADVANCE DIRECTIVE DISCUSSION ADVANCE DIRECTIVE DISCUSSION [facility] Start: 02-15-2022 DEPRESSION ASSESSMENT DEPRESSION ASS ESSMENT [facility] Start: 02-05-2022 COVID-19 VACCINE (5 - Yung risk series) COVID-19 VACCINE (5 - Yung risk series) [facility] Start: 11-27-2021 COVID-19 VACCINE (4 - Booster for Yung series) COVID-19 VACCINE (4 - Booster for Yung series) [facility] Start: 11-04-2021 Hemoglobin A1c/Hemoglobin.total in Blood HBA1C [facility] Start: 10-16-2021 [facility] Start: 03-26-2021 COVID-19 VACCINE (3 - Yung risk 3-dose series) COVID-19 VACCINE (3 - Yung risk 3-dose series) [facility] Start: 03-26-2021 COVID-19 VACCINE (3 - Yung risk series) COVID-19 VACCINE (3 - Yung risk series) [facility] Start: 02-15-2021 ADVANCE DIRECTIVE DISCUSSION ADVANCE DIRECTIVE DISCUSSION [facility] Start: 02-15-2021 DEPRESSION ASSESSMENT DEPRESSION ASS ESSMENT [facility] Start: 01-05-2016 Hepatitis B screening URINE AL BUMIN:CREATININE RATIO [facility] Start: 07-31-2015 Pneumococcal Vaccine : 65+ Years (3 - PCV) Pneumococcal Vaccine: 65+ Years (3 - PCV) [facility] Start: 04-06-2015 Hemoglobin A1c/Hemoglobin.total in Blood HBA1C [facility] Start: 11-22-2010 Hepatitis B surface antibody level LDL CHOLESTEROL [facility] Start: 2009 ADULT PREVNAR-13 ADULT PREVNAR-13 Cl [facility] Start: 2009 PNEUMOVAX AGE 65 AND OVER WITH 5YR LOOKBACK (#1) PNEUMOVAX AGE 65 AND OVER WITH 5YR LOOKBACK (#1) [facility] Start: 1994 SHINGRIX VACCINE (1 of 2) SHINGRIX VACCINE (1 of 2) [facility] Start: 10-18-1963 HEPATITIS A (1 of 2 - Risk 2-dose series) HEPATITIS A (1 of 2 - Risk 2-dose series) [facility] Start: 10-18-1963 Hepatitis A Vaccine (1 of 2 - Risk 2-dose series) Hepatitis A Vaccine (1 of 2 - Risk 2-dose series) [facility] Start: 10-18-1963 SHINGRIX VACCINE (1 of 2) SHINGRIX VACCINE (1 of 2) [facility] Start: 10-18-1963 Urine microalbumin profile [facility] Start: 1962 ANNUAL PCP TEAM PSYCHOLOGICAL TESTS SALES AGENT MATTHEW DISEASE VISIT ANNUAL PCP TEAM CHRONIC DISEASE VISIT [facility] Start: 1956 Adult depression screening assessment DEPRESSION SCREENING [facility] Start: 1954 3 comp foot exam completed DIABETIC FOOT EXAM [facility] Start: 1954 Glaucoma screening Diabetes: R etinopathy Screening [facility] Start: 1954 Hepatitis C antibody , confirmatory test DILATED RETINAL EXAM [facility] Start: 1950 Pneumococcal Vaccine : 65+ (1 - PCV) Pneumococcal Vaccine: 65+ (1 - PCV) [facility] Start: 1950 PNEUMOCOCCAL: 65+ (1 - PCV) PNEUMOCOCCAL: 65+ (1 - PCV) [facility] Start: 1945 HEPATITIS A (1 of 2 - Risk 2-dose series) HEPATITIS A (1 of 2 - Risk 2-dose series) [facility] URINALYSIS, REFLEX MICROSCOPIC URINALYSIS, REFLEX MICROSCOPIC Lab Routine Screening for genitourinary condition Ordered: 10/06/2021 [facility] Work Phone: Comment on above: Ordered: 10/06/2021 URINALYSIS, REFLEX MICROSCOPIC URINALYSIS, REFLEX MICROSCOPIC Lab Routine Screening for genitourinary condition Ordered: 04/02/2022 [facility] Work Phone: Comment on above: Ordered: 04/02/2022 End: 11-17-2022 US LEG ARTERIAL PERIPH UNL VAS LAB US LEG ARTERIAL PERIPH UNL VAS LAB Vascular Lab Routine PAD (peripheral artery disease) (HCC) Nonhealing ulcer of heel (HCC) 1 Occurrences starting 11/17/2021 until 11/17/2022 [facility] Work Phone: Comment on above: 1 Occurrences starti ng 11/17/2021 until 11/17/2022 End: 11-17-2022 US LEG VEIN DVT UNL VAS LAB US LEG VEIN DVT UNL VAS LAB Vascular Lab Routine Acute deep vein thrombosis (DVT) of proximal end of right lower extremity (HCC) 1 Occurrences starting 11/17/2021 until 11/17/2022 [facility] Work Phone: Comment on above: 1 Occurrences starti ng 11/17/2021 until 11/17/2022 [facility] BROTHERS CT & VAS BROTHERS CT & VAS [facility] Immunizations Immunization Date Immunization Notes Care Provider Fa cili 12-11-2021 COVID-19 booster vaccine, age 12+ yr, bivalent (PFIZER-BIONTECH) Paresh Fonseca MD Work Phone: [facility] 12-11-2021 influenza, high-dose , quadrivalent vaccine (FLUZONE HIGH DOSE QUADRIVALENT) Paresh Fonseca MD Work Phone: [facility] 12-11-2021 influenza virus vaccine, unspecified formulation Ariadna Mcdowell Phu [facility] 10-24-2021 influenza, high dose seasonal, preservative-free Ni Petznick DO Work Phone: [facility] 01-19-2019 influenza, high dose seasonal, preservative-free Ni Petznick DO Work Phone: [facility] 11-25-2017 Seasonal trivalent influenza vaccine, adjuvanted, preservative free Ni Petznick DO Work Phone: [facility] 11-05-2016 influenza, high dose seasonal, preservative-free In Petznick DO Work Phone: [facility] 07-30-2014 pneumococcal polysaccharide vaccine, 23 valent Ni Petznick DO Work Phone: [facility] 03-09-2011 influenza virus vaccine, unspecified formulation Van Olivarez APRN.HEALTH AND SAFETY CONSULTANT Work Phone: [facility] 12-17-2007 influenza virus vaccine, unspecified formulation Van Olivarez APRN.HEALTH AND SAFETY CONSULTANT Work Phone: [facility] Work Phone: 02-11-2006 influenza virus vaccine, unspecified formulation Van Olivarez APRN.HEALTH AND SAFETY CONSULTANT Work Phone: [facility] Work Phone: 12-07-2003 influenza virus vaccine, unspecified formulation Van Olivarez APRN.[facility] Work Phone: [facility] Work Phone: 12-07-2003 pneumococcal polysaccharide vaccine, 23 valent Van Olivarez APRN.[facility] Work Phone: [facility] Work Phone: NEGATED: Highlighted row has not occurred!12-10-2021 COVID-19 booster vaccine, age 12+ yr, bivalent (FluidinfoNTCuralate) Paresh Fonseca MD Work Phone: [facility] NEGATED: Highlighted row has not occurred!12-10-2021 influenza, high-dose, quadrivalent vaccine (FLUZONE HIGH DOSE QUADRIVALENT) Paresh Fonseca MD Work Phone: [facility] Payers Date Payer Category Payer Medicare MEDICARE MEDICAR E A AND B [id number] 2009-Present [phone] [address] [address] [place] [address] Medicare [id number] .[id number] 2009 Medicare [id number]. 1.13.159.2.7.3 .020354.315 2009 Unknown [employer] [place] [employer] [place] MEDIC[place] SUPPLEMENT [id number] 2009-Present [phone] [address] [place] [address] Indemnity [id number] 1.2.840.049649.1.13.159.2.7.3 .887663.315 2009 Unknown 1.2.840.641111. 1.13.159.2.7.3 .814787.315 2009 Unknown [id number] 2.16.8 40.1.554405.19 2009 Unknown [id number] 1959 Medicare [id number] 1959 Self-pay 1944 Unknown [id number] 2.16.840.1.063317.3.579.2.732 1944 Unknown [id number] 2.16.840.1.219806.3.579.2.593 1944 Unknown [id number] 2.16.840.1.574471.3.579.2.593 1944 Unknown [id number] 2.16.840.1.968839.3.579.2.593 1944 Unknown [id number] 2.16.840.1.335356.3.579.2.593 1944 Unknown [id number] 2.16.840.1.046659.3.579.2.593 1944 Unknown [id number] 2.16.840.1.740383.3.579.2.593 1944 Unknown [id number] 2.16.840.1.146973.3.579.2.593 1944 Unknown [id number] 2.16.840.1.489187.3.579.2.593 1944 Unknown [id number] 2.16.840.1.749960.3.579.2.593 1944 Unknown [id number] 2.16.840.1.634751.3.579.2.593 1944 Unknown [id number] 2.16.840.1.956907.3.579.2.593 1944 Unknown [id number] 2.16.840.1.114025.3.579.2.593 1944 Unknown [id number] 2.16.840.1.280216.3.579.2.593 1944 Unknown [id number] 2.16.840.1.197916.3.579.2.593 1944 Unknown [id number] 2.16.840.1.473379.3.579.2.593 1944 Unknown [id number] 2.16.840.1.555519.3.579.2.593 1944 Unknown [id number] 2.16.840.1.844565.3.579.2.593 1944 Unknown [id number] 2.16.840.1.618597.3.579.2.593 1944 Unknown [id number] 2.16.840.1.435721.3.579.2.593 1944 Unknown [id number] 2.16.840.1.246659.3.579.2.593 1944 Unknown [id number] 2.16.840.1.095331.3.579.2.593 1944 Unknown [id number] 2.16.840.1.886737.3.579.2.593 1944 Unknown [id number] 2.16.840.1.878420.3.579.2.593 1944 Unknown [id number] 2.16.840.1.200747.3.579.2.593 1944 Unknown [id number] 2.16.840.1.685474.3.579.2.593 1944 Unknown [id number] 2.16.840.1.914229.3.579.2.593 1944 Unknown [id number] 2.16.840.1.331380.3.579.2.593 1944 Unknown [id number] 2.16.840.1.426191.3.579.2.593 1944 Unknown [id number] 2.16.840.1.460371.3.579.2.593 1944 Unknown [id number] 2.16.840.1.490051.3.579.2.593 1944 Unknown [id number] 2.16.840.1.089609.3.579.2.593 1944 Unknown [id number] 2.16.840.1.484036.3.579.2.593 1944 Unknown [id number] 2.16.840.1.780900.3.579.2.593 1944 Unknown [id number] 2.16.840.1.286008.3.579.2.593 1944 Unknown [id number] 2.16.840.1.489216.3.579.2.593 1944 Unknown [id number] 2.16.840.1.183686.3.579.2.593 1944 Unknown [id number] 2.16.840.1.651003.3.579.2.593 1944 Unknown [id number] 2.16.840.1.453055.3.579.2.593 1944 Unknown [id number] 2.16.840.1.573910.3.579.2.593 1944 Unknown [id number] 2.16.840.1.624188.3.579.2.593 1944 Unknown [id number] 2.16.840.1.778642.3.579.2.593 1944 Unknown [id number] 2.16.840.1.449111.3.579.2.593 1944 Unknown [id number] 2.16.840.1.545861.3.579.2.593 1944 Unknown [id number] 2.16.840.1.618685.3.579.2.593 1944 Unknown [id number] 2.16.840.1.282072.3.579.2.593 1944 Unknown [id number] 2.16.840.1.860004.3.579.2.593 1944 Unknown [id number] 2.16.840.1.088251.3.579.2.125 9 Medicare Medicare Outpatient [id number] 2T [id number] Unknown [id number] 2.16.840.1.245536.3.579.2.593 Unknown [id number] 2.16.840.1.610959.3.579.2.593 Unknown [id number] 2.16.840.1.038404.3.579.2.531 Social History Date Type Detail Facility Start: 03-09-2011 End: 07-07-2022 Tobacco smoking status NHIS Ex-smoker [facility] Work Phone: End: 02-15-1975 History of tobacco use Current smoker [facility] Work Phone: End: 02-15-1975 History of tobacco use Cigarette Smoker [facility] Work Phone: Start: 04-08-2021 End: 02-26-2022 Alcohol intake Current drinker of alcohol (finding) [facility] Start: 1945 Sex Assigned At Not on file C [facility] Start: 03-09-2011 End: 10-20-2022 Cigarettes smoked current (pack per day) - Reported 1 [facility] Work Phone: Start: 03-09-2011 End: 02-26-2022 Tobacco use and exposure Smokeless tobacco non-user [facility] Start: 09-25-2021 History SDOH Financial 5 [facility] Start: 09-25-2021 History SDOH Food Worry 1 [facility] Start: 09-25-2021 History SDOH Transpo rt Med 2 [facility] Start: 09-14-2021 End: 01-12-2022 Exposure to SARS-CoV-2 (event) Not sure [facility] Start: 02-26-2022 End: 10-20-2022 Sex Assigned At [facility] Work Phone: Start: 1945 Sex Assigned At Male F [facility] How hard is it for y ou to pay for the very basics like food, housing, medical care, and heating Not hard at all [facility] Work Phone: (I/We) worried shiloh er (my/our) food would run out before (I/we) got money to buy more. Never true [facility] Work Phone: In the past 12 month s, was there a time when you were not able to pay the mortgage or rent on time? No [facility] Work Phone: Start: 03-18-2023 Alcohol intake Ex-drinker (finding) [facility] How often to you hav e a drink containing alcohol? 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 He is being transported by a yard driver. 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 documented in this encounter [facility] 01-14-2023 Evaluation note Encounter Date Diagnosis [...] are maintaining regular scheduled appts with their guard entrance registrar. No bleeding complications Dec, Hyperlipidemia LDL goal [...] fluid balance and to avoid dehydration. 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 This patient is anticoagulated to prevent thromboembolic events. They are maintaining regular scheduled appts with their guard entrance registrar. No bleeding complications Nov, Hyperlipidemia LDL goal [...] (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 of insulin (ICD-10 - Z79.4) [facility] Other 09-28-2023 Evaluation note* Encounter Date Diagnosis [...] are maintaining regular scheduled appts with their guard entrance registrar. No bleeding complications Oct, Type 1 diabetes [...] - Z94.0) Continue routine surveillance labs. 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 DX Code Needed. 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 No bleeding complications Sep, Type 1 diabetes [...] risk for cerebrovascular and cardiovascular disease. 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 Please review and advise. Ariadna Mcdowell, documented in this encounter[facility] Evaluation note* Encounter Date Diagnosis Assessment Notes Treatment Notes Treatment Clinical Notes Aug, Longstanding persistent atrial fibrillation (ICD-10 - I48.11) This patient is in NSR or rate controlled. This patient is anticoagulated to prevent thromboembolic events. They are maintaining regular scheduled appts with their guard entrance registrar. No s/s bleeding Aug, Type 1 diabetes [...] risk for cerebrovascular and cardiovascular disease. 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 Lightheaded in the office today, as BP is very low. He denies chest pain, SOB, palpitations, and bleeding on warfarin. Had routine labs last week. Review of Systems Musculoskeletal: Positive for arthritis, joint pain and myalgias. Neurological: Positive for light-headedness. All other systems reviewed and are negative.[facility] 09-09-2022 NoteUT Electrophysiology Consult Note Reason [...] at about 50-60 systolic. patient with friend/ yard driver from facility, we will take patient [...] of the right coronary artery with robust [id number]-em-[id number] collaterals. 5. Normal global left ventricular systolic [...] Follow up with Dr. Galvez in the [facility] in the next 2 weeks; he may follow up with Dr. Orosco as needed for interventional issues. 5. Follow up with Dr. Devon Moreira as scheduled. PMH: Past Medical History: Diagnosis Date Abnormal ECG Arrhythmia Atrial fibrillation (CMS/HCC) Chronic kidney disease Coronary artery disease Diabetes mellitus (CMS/HCC) (more content not included)...[facility]06-22-2023 Evaluation note* Encounter Date Diagnosis Assessment [...] are maintaining regular scheduled appts with their guard entrance registrar. No bleeding complications Jul, Type 1 diabetes [...] Monthly labs, ongoing surveillance from transplant clinic [facility] Other 05-15-2023 Progress note Author Sadia Aguilar [facility] June 29, 2022 2:47pm Note Date/Time June 29, 2022 2:46p m [facility] [address] [place] [address] Wound Center Provider Note Signed Patient: Alex Almonte MR#: [id number] : 1945 Acct:[id number] Age/Sex: 76 / M Copies to: DO Sadia Whyte APRN~ HPI Date of Visit Date of Visit: Date of Service: 06/29/2022 Time of Service: 14:45 Narrative HPI: 12/30/21 Alex is a 76 year old male presenting to [facility] wound care for aninitial visit for eval and treatment of a sacral/coccyx area pressure ulcer. He resides at [facility]. There is an ANALYST GEOCHEMICAL PROSPECTING present for the visit. Medicalhoney gel will [...] his brief that was cleaned by this pattern chart writer as well as another nursing staff [...] from initial visit here Mode of Arrival/ Animal Anatomy Teacher: Facility vehicle Assistive Device Used Today: Wheelchair and Indra Lives with:: Care/Nursing Facility Appetite Description: Within Normal Limits Who helps w/ dressing change?: Nursing Facility Why Do You Need Help?: Can't Reach Ulcer, Limited mobility and Taxing effort to leave home Smoking Status: Former smoker [facility] Medical History (Updated 03/03/22 @ 14:41 [...] Ulcer/Injury Staging: Unstageable Bed Appearance: Beefy Red, [place], Yellow and Rolled Edges Percent of Wound [...] By: <Electronically signed by DAVID Aguilar> 06/29/221446 [facility] Work Phone: 1([phone]) 325-862405-11-2023 Evaluation note* Encounter Date Diagnosis Assessment Notes [...] are maintaining regular scheduled appts with their guard entrance registrar. No bleeding complications June, Hyperlipidemia LDL goal <100 (ICD-10 - E78.5) Instructed on diet and exercise with continued statin therapy.Discussed the beneficial effects of lowering cholesterol in reducing the risk for cerebrovascular and cardiovascular disease. June, snf (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 of insulin (ICD-10 - Z79.4) June, Kidney transplant status (ICD-10 - Z94.0) No s/s rejection [facility] Other 04-24-2023 Progress note Author Sadia Aguilar [facility] June 08, 2022 2:10pm Note Date/Time June 08, 2022 2:1 0pm [facility] [address] [place] [address] Wound Center Provider Note Signed Patient: Alex Almonte MR#: [id number] : 1945 Acct:[id number] Age/Sex: 76 / M Copies to: DO Sadia Whyte, DAVID~ HPI Date of Visit Date of Visit: Date of Service: 06/08/2022 Time of Service: 14:07 Narrative HPI: 12/30/21 Alex is a 76 year old male presenting to [facility] wound care for aninitial visit for eval and treatment of a sacral/coccyx area pressure ulcer. He resides at [facility]. There is an ANALYST GEOCHEMICAL PROSPECTING present for the visit. Medicalhoney gel will [...] his brief that was cleaned by this pattern chart writer as well as another nursing staff [...] from initial visit here Mode of Arrival/ Animal Anatomy Teacher: Facility vehicle Assistive Device Used Today: Wheelchair and Indra Lives with:: Care/Nursing Facility Appetite Description: Within Normal Limits Who helps w/ dressing change?: Nursing Facility Why Do You Need Help?: Can't Reach Ulcer, Limited mobility and Taxing effort to leave home Smoking Status: Former smoker [facility] Medical History (Updated 03/03/22 @ 14:41 [...] Ulcer/Injury Staging: Unstageable Bed Appearance: Beefy Red, [place], Yellow and Rolled Edges Percent of Wound [...] <Electronically signed by DAVID Aguilar> 06/08/22 [address] [facility] Work Phone: 1(630) 235-373204-21-2023 Evaluation note* Encounter Date Diagnosis Assessment Notes [...] are maintaining regular scheduled appts with their guard entrance registrar. 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 No open ulcerations present Pain controlled [facility] Other 03-27-2023 Progress note Author Sadia Aguilar [facility] May 11, 2022 1:41pm Note Date/Time May 11, 2022 1:4 0pm [facility] [address] [place] [address] Wound Center Provider Note Signed Patient: Alex Almonte MR#: [id number] : 1945 Acct:[id number] Age/Sex: 76 / M Copies to: Devon Moreira,DO Sadia Aguilar, AGRONOMY TEACHER~ HPI Date of Visit Date of Visit: Date of Service: 05/11/2022 Time of Service: 13:38 Narrative HPI: 12/30/21 Alex is a 76 year old male presenting to [facility] wound care for aninitial visit for eval and treatment of a sacral/coccyx area pressure ulcer. He resides at [facility]. There is an ANALYST GEOCHEMICAL PROSPECTING present for the visit. Medicalhoney gel will [...] his brief that was cleaned by this pattern chart writer as well as another nursing staff [...] from initial visit here Mode of Arrival/ Animal Anatomy Teacher: Facility vehicle Assistive Device Used Today: Wheelchair and Indra Lives with:: Care/Nursing Facility Appetite Description: Within Normal Limits Who helps w/ dressing change?: Nursing Facility Why Do You Need Help?: Can't Reach Ulcer, Limited mobility and Taxing effort to leave home Smoking Status: Former smoker [facility] Medical History (Updated 03/03/22 @ 14:41 [...] Ulcer/Injury Staging: Unstageable Bed Appearance: Beefy Red, [place] and Yellow Percent of Wound Bed Granulated/Red: [...] <Electronically signed by DAVID Aguilar> 05/11/22 [address] [facility] Work Phone: [phone]) 667-609503-23-2023 Evaluation note* Encounter Date Diagnosis Assessment Notes [...] are maintaining regular scheduled appts with their guard entrance registrar. 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 Author Type: Physician Type: Progress Notes Filed: 04/24/2022 10:32 AM Note Text: Encounter opened in error, patient not seen.[facility]02-28-2023 Progress note Author Sadia Aguilar [facility] April 14, 2022 2:19pm Note Date/Time April 14, 2022 2:18pm [facility] [address] [place] [address] Wound Center Provider Note Signed Patient: Alex Almonte MR#: [id number] : 1945 Acct:[id number] Age/Sex: 76 / M Copies to: DO Sadia Whyte, DAVID~ HPI Date of Visit Date of Visit: Date of Service: 04/14/2022 Time of Service: 14:18 Narrative HPI: 12/30/21 Alex is a 76 year old male presenting to [facility] wound care for aninitial visit for eval and treatment of a sacral/coccyx area pressure ulcer. He resides at [facility]. There is an ANALYST GEOCHEMICAL PROSPECTING present for the visit. Medicalhoney gel will [...] his brief that was cleaned by this pattern chart writer as well as another nursing staff [...] from initial visit here Mode of Arrival/ Animal Anatomy Teacher: Facility vehicle Assistive Device Used Today: Wheelchair and Indra Lives with:: Care/Nursing Facility Appetite Description: Within Normal Limits Who helps w/ dressing change?: Nursing Facility Why Do You Need Help?: Can't Reach Ulcer, Limited mobility and Taxing effort to leave home Smoking Status: Former smoker [facility] Medical History (Updated 03/03/22 @ 14:41 [...] Ulcer/Injury Staging: Unstageable Bed Appearance: Beefy Red, [place] and Yellow Percent of Wound Bed Granulated/Red: [...] <Electronically signed by DAVID Aguilar> 04/14/22 [address] [facility] Work Phone: [phone]) 707-898002-16-2023 NotePatient Outreach (KIMBERLY) ALEX ALMONTE ([id number]) 1945 M TRN Date Time Provider Department 04/02/22 VAN OLIVAREZ During your visit today, we recorded the following information about you: Allergies As of Date: 04/02/2022 Noted Allergy Reaction PYRIDOSTIGMINE BROMIDE 08/04/2021 8 - GI Upset Date Reviewed: 02/26/2022 Reviewed by: Braden Abel MA - Fully Assessed Visit Diagnosis:Screening for genitourinary condition [Z13.89] Order(s):URINALYSIS, REFLEX MICROSCOPIC [ABF2596] Order #: [id number] Prescriptions as of 04/06/2022 - tacrolimus IR [...] by mouth daily with lunch. 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/2002 DIABETES UNCOMPL ADULT-UNCONTRLLED [[id number]] 02/24/2002 KIDNEY TRANSPLANT STATUS [Z94.0] 09/07/2003 PROPHYLACTIC IMMUNOTHERAPY [Z29.8] 07/30/2006 HALF-WAY STEROIDS [[id number]] 07/30/2006 VITAMIN D DEFICIENCY NOS [E55.9] 09/07/2008 [...] perfusion [R09.89] 09/30/2021 PAD (peripheral artery disease) ([facility]) [I73.9] 09/26/2021 Osteomyelitis (HCC) [M86.9] 11/29/2021 Class 1 obesity due to excess calories with ser*11/29/2021 Mixed hyperlipidemia due to type 2 diabetes myles*11/29/2021 Type 2 diabetes mellitus with diabetic peripher*11/29/2021 Atherosclerosis of creek artery of extremity w*11/29/2021 Malnutrition of moderate degree (HCC) [E44.0] 12/01/2021 Dermatitis associated with moisture [L30.8] 12/04/2021 Encounter Status:Closed by CONCETTA HOBBS on 04/06/22[facility] 03-30-2022 Miscellaneous Notes* Telephone Encounter - [...] Kellenfransicovaibhav Dunia documented in this [facility] Progress note Author Sadia Aguilar [facility] March 24, 2022 3:00pm Note Date/Time March 24, 2022 2 :59pm [facility] [address] [place] [address] Wound Center Provider Note Signed Patient: Alex Almonte MR#: [id number] : 1945 Acct:[id number] Age/Sex: 76 / M Copies to: Devon Moreira,DO Sadia Aguilar APRN~ HPI Date of Visit Date of Visit: Date of Service: 03/24/2022 Time of Service: 14:58 Narrative HPI: 12/30/21 Alex is a 76 year old male presenting to [facility] wound care for aninitial visit for eval and treatment of a sacral/coccyx area pressure ulcer. He resides at [facility]. There is an ANALYST GEOCHEMICAL PROSPECTING present for the visit. Medicalhoney gel will [...] his brief that was cleaned by this pattern chart writer as well as another nursing staff [...] from initial visit here Mode of Arrival/ Animal Anatomy Teacher: Facility vehicle Assistive Device Used Today: Wheelchair and Indra Lives with:: Care/Nursing Facility Appetite Description: Within Normal Limits Who helps w/ dressing change?: Nursing Facility Why Do You Need Help?: Can't Reach Ulcer, Limited mobility and Taxing effort to leave home Smoking Status: Former smoker [facility] Medical History (Updated 03/03/22 @ 14:41 [...] Ulcer/Injury Staging: Unstageable Bed Appearance: Beefy Red, [place] and Yellow Percent of Wound Bed Granulated/Red: [...] <Electronically signed by DAVID Aguilar> 03/24/22 [address] [facility] Work Phone: 1(761) 709-225701-17-2023 Progress note Author Sadia Aguilar [facility] March 03, 2022 2:41pm Note Date/Time March 03, 2022 2 :41pm [facility] [address] [place] [address] Wound Center Provider Note Signed Patient: Alex Almonte MR#: [id number] : 1945 Acct:[id number] Age/Sex: 76 / M Copies to: DO Sadia Whyte APRN~ HPI Date of Visit Date of Visit: Date of Service: 03/03/2022 Time of Service: 14:38 Narrative HPI: 12/30/21 Alex is a 76 year old male presenting to [facility] wound care for aninitial visit for eval and treatment of a sacral/coccyx area pressure ulcer. He resides at [facility]. There is an ANALYST GEOCHEMICAL PROSPECTING present for the visit. Medicalhoney gel will [...] his brief that was cleaned by this pattern chart writer as well as another nursing staff [...] from initial visit here Mode of Arrival/ Animal Anatomy Teacher: Facility vehicle Assistive Device Used Today: Wheelchair and Indra Lives with:: Care/Nursing Facility Appetite Description: Within Normal Limits Who helps w/ dressing change?: Nursing Facility Why Do You Need Help?: Can't Reach Ulcer, Limited mobility and Taxing effort to leave home Smoking Status: Former smoker [facility] Medical History (Updated 03/03/22 @ 14:41 [...] Ulcer Pressure Ulcer/Injury Staging: Unstageable Bed Appearance: [place] and Yellow Percent of Wound Bed Granulated/Red: 90 Percent of Devitalized: 10 Length (cm): 2.2 Width (cm): 1.8 Depth (cm): 1.9 CM Sq: 3.960 Surrounding Tissue Appearance: [place], Hyperpigmented and Satellite lesions Surrounding Tissue Temp: [...] <Electronically signed by DAVID Aguilar> 03/03/22 [address] [facility] Work Phone: [phone]) 564-385601-13-2023 Miscellaneous Notes* Telephone Encounter - RAUL Davidson - 02/27/2022 10:24 AM EST Patient phones requesting refills as follows: Per pts sister takes 1 mg in AM and 1 mg in PM Requested Prescriptions Pending Prescriptions Disp Refills tacrolimus IR (PROGRAF) 1 mg capsule Sig: Take 2 capsules by mouth DAILY (6 AM). Please review and advise. RAUL Davidson documented in this encounterSelect Medical [facility]01-12-2023 NoteHNO ID: [id number] Author: Hina Peterson MD Service: ? 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 Magic Cup [place] with lunch aspirin, enteric coated (ASPIRIN, ENTERIC COATED) 81 mg EC tablet Take 1 tablet by mouth once daily. predniSONE (DELTASONE) 5 mg tablet TAKE 1 TABLET BY MOUTH EVERY DAY oxyCODONE IR (ROXICODONE) 5 mg immediate release tablet 1-2 tablets by ORAL/FEEDING TUBE route every 3 hours as needed. Food Supplement, Lactose-Free (ENSURE MAX (more content not included)... [facility]01-12-2023 History of Present illness Narrative* Hina Peterson MD - 02/26/2022 4:25 PM EST Images from the original note were not included. [facility] [place] DEPARTMENT OF VASCULAR SURGERY OUTPATIENT VISIT DATE [...] maxwell and sutures were removed at the [place] [facility]. He comes here with a lateral wound eschar. He denies any fevers, chills, or any drainage. He is on anticoagulation. 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 Patient on mycophenolate mofetil ,cellcept and prednisone Mixed hyperlipidemia due to type 2 diabetes mellitus ([facility]) 11/29/2021 Osteomyelitis ([facility]) 11/29/2021 Paroxysmal atrial fibrillation ([facility]) Renal transplant, status post SA node dysfunction ([facility]) s/p pacemaker Type 2 diabetes mellitus with diabetic neuropathy, with long-term current use of insulin ([facility]) 02/24/2002 PAST SURGICAL HISTORY Procedure Laterality Date [...] by mouth daily with lunch. Magic Cup [place] with lunch aspirin, enteric coated (ASPIRIN, ENTERIC [...] 4:26 PM documented in this encounterSelect Medical Specialty [facility]01-05-2023 Miscellaneous Notes* Telephone Encounter - Gwen Beard [...] Home and cell number(Ask for Alex's nurse) [phone] Diagnosis 4 mo f/u wound check Yumiko Mcclain documented in this encounterSelect Medical Specialty [facility]01-05-2023 Miscellaneous Notes* Telephone Encounter - Augusta Medrano RN - 02/19/2022 11:11 AM EST Alex Kate Coyote's nursing facility, [facility], called regarding elevated tacrolimus level (23.9). Spoke with bedside nurse, Zoe, today. Level is from last week- unable to clearly determine if medications were held prior to lab work. Reviewed with nurse morning labs should occur prior to lab draws. Patient is scheduled for repeat labs tomorrow. Will assess new level. Augusta Medrano RN documented in this encounterSelect Medical Specialty [facility]01-04-2023 Miscellaneous Notes* Telephone Encounter - Martina Rossi [...] Tavares MA documented in this encounterSelect Medical Specialty [facility]12-27-2022 Progress note Author Sadia Aguilar [facility] February 10, 2022 3:47pm Note Date/Time February 10, 2022 3:47pm [facility] [address] [place] [address] Wound Center Provider Note Signed Patient: Alex Almonte MR#: [id number] : 1945 Acct:[id number] Age/Sex: 76 / M Copies to: DO Sadia Whyte, DAVID~ HPI Date of Visit Date of Visit: Date of Service: 02/10/2022 Time of Service: 15:44 Narrative HPI: 12/30/21 Alex is a 76 year old male presenting to [facility] wound care for aninitial visit for eval and treatment of a sacral/coccyx area pressure ulcer. He resides at [facility]. There is an ANALYST GEOCHEMICAL PROSPECTING present for the visit. Medicalhoney gel will [...] his brief that was cleaned by this pattern chart writer as well as another nursing staff member, few weeks to follow up Subjective Pain Coccyx: Pain Description: Intermittent Pain Intensity: 0 Wound/Ulcer History When did wound start?: 4 weeks ago- from initial visit here Mode of Arrival/ Animal Anatomy Teacher: Facility vehicle Assistive Device Used Today: Wheelchair and Indra Lives with:: Care/Nursing Facility Appetite Description: Within Normal Limits Who helps w/ dressing change?: Nursing Facility Why Do You Need Help?: Can't Reach Ulcer, Limited mobility and Taxing effort to leave home Smoking Status: Former smoker [facility] Medical History (Updated 01/20/22 @ 14:21 [...] Ulcer Pressure Ulcer/Injury Staging: Unstageable Bed Appearance: [place] and Yellow Percent of Wound Bed Granulated/Red: 90 Percent of Devitalized: 10 Length (cm): 2.5 Width (cm): 2.3 Depth (cm): 2.1 CM Sq: 5.750 Surrounding Tissue Appearance: [place], Hyperpigmented and Satellite lesions Surrounding Tissue Temp: [...] By: <Electronically signed by DAVID Aguilar> 02/10/227 [facility] Work Phone: 1(718) 267-822912-22-2022 NoteHNO ID: [id number] Author: Asia Pike MD Service: ? Author Type: Physician Type: Progress Notes Filed: 02/05/2022 9:38 AM Note Text: [facility] [place] Transplant Follow up Portions of this note [...] date with medications. Patient brought paperwork from [email or web address] with all medications being received. Patient unsure if they have been drawing labs regularly. Last Tac from 01/19: 12.9 and K 5.9. In need of current labs. Lab orders will be sent with patient and follows as below: Kidney and Pancreas Transplant Standing Lab Orders [address] [place], [place] [address] February 05, 2022 Alex Almonte 1945 [id number] STANDARD TESTING: Diagnosis Codes: Z94.0 Kidney Transplant [...] AT YOUR LABORATORY FACILITY AND FAX TO [phone]. PLEASE CALL [phone]. Provider: Dr. Pike Current Outpatient Medications Medication [...] by mouth daily with lunch. Magic Cup [place] with lunch aspirin, enteric coated (ASPIRIN, ENTERIC COATED) 81 mg EC tablet Take 1 tablet by mouth once daily. atorvastatin (LIPITOR) 40 mg tablet 1 tablet by ORAL/FEEDING TUBE route daily at bedtime. (more content not included)...[facility]12-22-2022 History of Present illness Narrative* Asia Pike MD - 02/05/2022 8:20 AM EST Images from the original note were not included. [facility] [place] Transplant Follow up Portions of this note [...] snacks patient declined. Indra scale at [facility]: 166.2 lbs per patient. Bed sore on coccyx causing discomfort. Being changed regularly at SNF- reported to be smaller around but still as deep. Patient not very up to date with medications. Patient brought paperwork from [email or web address] with all medications being received. Patient unsure if they have been drawing labs regularly. Last Tac from 01/19: 12.9 and K 5.9. In need of current labs. Lab orders will be sent with patient and follows as below: Kidney and Pancreas Transplant Standing Lab Orders [address] [facility] [address] [place], [place] [address] February 05, 2022 Alex Almonte 1945 [id number] STANDARD TESTING: Diagnosis Codes: Z94.0 Kidney Transplant [...] AT YOUR LABORATORY FACILITY AND FAX TO [phone]. PLEASE CALL [phone]. Provider: Dr. Pike Current Outpatient Medications Medication [...] by mouth daily with lunch. Magic Cup [place] with lunch aspirin, enteric coated (ASPIRIN, ENTERIC [...] All other system reviews negative. Augusta Medrano figurine maker: February 05, 2022 9:34 AM I have [...] Pike MD documented in this encounterSelect Medical Specialty [facility]12-06-2022 Progress note Author Sadia Aguilar [facility] January 20, 2022 2:21pm Note Date/Time January 20, 2022 2 :21pm [facility] [address] [place] [address] Wound Center Provider Note Signed Patient: Alex Almonte MR#: [id number] : 1945 Acct:[id number] Age/Sex: 76 / M Copies to: DO Sadia Whyte APRN~ HPI Date of Visit Date of Visit: Date of Service: 01/20/2022 Time of Service: 14:17 Narrative HPI: 12/30/21 Alex is a 76 year old male presenting to [facility] wound care for aninitial visit for eval and treatment of a sacral/coccyx area pressure ulcer. He resides at [facility]. There is an ANALYST GEOCHEMICAL PROSPECTING present for the visit. Medicalhoney gel will [...] from initial visit here Mode of Arrival/ Animal Anatomy Teacher: Facility vehicle Assistive Device Used Today: Wheelchair and Indra Lives with:: Care/Nursing Facility Appetite Description: Within Normal Limits Who helps w/ dressing change?: Nursing Facility Why Do You Need Help?: Can't Reach Ulcer, Limited mobility and Taxing effort to leave home Smoking Status: Former smoker [facility] Medical History (Updated 01/20/22 @ 14:21 [...] Ulcer Pressure Ulcer/Injury Staging: Unstageable Bed Appearance: [place] and Yellow Percent of Wound Bed Granulated/Red: 40 Percent of Devitalized: 60 Length (cm): 5.2 Width (cm): 3.4 Depth (cm): 1.8 CM Sq: 17.680 Surrounding Tissue Appearance: [place] and Hyperpigmented Surrounding Tissue Temp: Warm Drainage [...] <Electronically signed by DAVID Aguilar> 01/20/22 [address] [facility] Work Phone: 1(613) 681-848912-06-2022 Miscellaneous Notes* Telephone Encounter - Van Olivarez APRN.CNP - 01/20/2022 1:12 PM EST Labs noted from yesterday. Pt is currently residing at [facility], I spoke with the Nurse, the results has been addressed by Physician caring for pt. He had been placed on Chlor Con and this has been discontinued and hyperkalemia has been treated. Van Olivarez APRN.CNP documented in this encounterSelect Medical Specialty Hospital [facility]11-28-2022 Surgical operation note* Brief Op Note - Misbah Landis PA-C - 01/12/2022 10:41 AM EST BRIEF OPERATIVE / PROCEDURE NOTE LOG ID: [id number] SURGERY/PROCEDURE DATE: 01/12/2022 INCISION/PROCEDURE START TIME: 10:32 AM INCISION CLOSE/PROCEDURE END TIME: 10:35 AM SURGEON(S)/PROCEDURALIST(S) AND SIGNAL SYSTEM TESTING MAINTAINER(S): Misbah Landis PA-C SURGERY/PROCEDURE(S): Removal tunneled vascular access catheter under local anesthesia ANESTHESIA: Procedural Sedation FINDINGS: Catheter removed intact ESTIMATED BLOOD LOSS: 0 ml SPECIMENS: None COMPLICATIONS: None PRE-OP/PRE-PROCEDURE DIAGNOSIS: Foot Ulcer POST-OP/POST-PROCEDURE DIAGNOSIS: Same as Preop SIGNATURE: Misbah Landis PA-C PATIENT NAME: Alex Almonte DATE: January 12, 2022 TIME: 10:42 AM documented in this encounterSelect Medical Specialty Hospital [facility]11-22-2022 Nurse Note* Laxmi Archibald RN - 01/06/2022 1:55 PM EST Pre-procedure instructions: Contacted patient's sister, Munira Brothers and nurse at [facility], Jada ([phone]) andconfirmed appt. for Gerhard removal scheduled on 01/12/22, at [facility]. If instructions are not followed your [...] signed. Arrival at 9:30am to desk QB-1 ([facility]) and check in for your procedure. Interior Mechanic/Transportation: How will you be arriving for your procedure? Ambulance service. To be arranged by [facility]. If you develop any of the following symptoms before your procedure, please call [phone]. Chills, joint pain, rash, sore throat, cough, loss of smell, reddened eyes, vomiting, abdominal pains, diarrhea, loss of taste, severe headache, weakness, bruising or bleeding, fever, muscle pain, shortness of breath Recovery expectations: You can expect to be in recovery for 30 minutes following the procedure. Written instructions provided to patient via [employer] If you have any questions please call [phone] documented in this encounterSelect Medical Specialty [facility]11-15-2022 Progress note Author Sadia Aguilar [facility] December 30, 2021 1:49pm Note Date/Time December 30, 2021 1:49pm [facility] [address] [place] [address] Wound Center Provider Note Signed Patient: Alex Almonte MR#: [id number] : 1945 Acct:[id number] Age/Sex: 76 / M Copies to: DO Sadia Whyte APRN~ HPI Date of Visit Date of Visit: Date of Service: 12/30/2021 Time of Service: 13:44 Narrative HPI: 12/30/21 Alex is a 76 year old male presenting to [facility] wound care for aninitial visit for eval and treatment of a sacral/coccyx area pressure ulcer. He resides at [facility]. There is an ANALYST GEOCHEMICAL PROSPECTING present for the visit. Medicalhoney gel will [...] start?: 4 weeks ago Mode of Arrival/ Animal Anatomy Teacher: Facility vehicle Assistive Device Used Today: Wheelchair and Indra Lives with:: Care/Nursing Facility Appetite Description: Within Normal Limits Who helps w/ dressing change?: Nursing Facility Why Do You Need Help?: Can't Reach Ulcer, Limited mobility and Taxing effort to leave home Smoking Status: Former smoker [facility] Medical History (Updated 12/30/21 @ 13:49 [...] 0.1 CM Sq: 38.500 Surrounding Tissue Appearance: [place] and Hyperpigmented Surrounding Tissue Temp: Warm Drainage [...] By: <Electronically signed by DAVID Aguilar> 12/30/21 [address] [facility] Work Phone: 1(414) 137-376711-15-2022 History of Present illness Narrative* Paresh Fonseca [...] rehab facility He is currently at [facility] in [facility] Seen on video together with Zoe -history obtained from bedside nursing. he is getting up in a chair, working with PT diet is back to regular hes doing well. much improved since admission to 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 has scabs on the R lateral side but no wound care concerns. It continues to heal. He has a follow-up with vascular surgery later December 2021. has a sacral wound -- he has local wound care following this at [facility] WBC 6.0, creatinine -- 0.8. alt 12 [...] by mouth daily with lunch. Magic Cup [place] with lunch aspirin, enteric coated (ASPIRIN, ENTERIC [...] is a 76 year old male from [facility]. Here today for copat follow-up for vancomycin x4 weeks for MRSA bacteremia He was transferred from [place] TO [facility] on 11/28/2021 for further surgical management of infected right heel He has a past medical history of kidney transplant in 2001, left [facility] from previously infected foot ulcers and multiple foot surgeries. History of PAD CAD status post CABG, diabetes, atrial fibrillatioN He originally presented [facility] for having altered mental status [...] 3. Status post right heel I&D at [place] on 11/24/2021. 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 4. CKD - s/p gerhard placement 5. immunocompromised Status post right open above the ankle [id number] - Enterobacter and MRSA from cultures Gram-positive [...] will need to coordinate with his SNF [phone] --our ID office will need to arrange for IR gerhard removal. Return to ID as needed 10 Minutes spent via virtual visit. SIGNATURE: Paresh Fonseca MD PATIENT NAME: Alex Almonte DATE: December 30, 2021 TIME: 9:52 AM documented in this encounterSelect Medical Specialty [facility]11-01-2022 Miscellaneous Notes* Telephone Encounter - Sulma Pardo - 12/16/2021 3:13 PM EDT Pt occupational therapy instructor is requesting orders for Stomp ampushield to be taken off pressure relief because it is causing sores on the thigh. Thanks, Sulma Pardo Front Worker documented in this encounterSelect Medical Specialty Hospital [facility]10-31-2022 Miscellaneous Notes* Telephone Encounter - Gwen Alfredo Adm Asst I - 12/15/2021 4:11 PM EDT Rupa LYLES from [facility] [phone] called to report IV Vancomycin was started until today. Patient missed 3 days, should patient makeup missed doses? Please advise. Gwen Alfredo Adm Asst I documented in this encounterSelect Medical Specialty Hospital [facility]10-21-2022 Instructions* Patient Instructions* Paresh Fonseca MD - [...] serious illness Are taking any medications (prescription, vvou-rom-cedqstl, vitamins, or herbal products) How will I receive EVUSHELD? EVUSHELD consists of two investigational medicines, tixagevimab and cilgavimab. You will receive 1 dose of EVUSHELD, consisting of 2 separate injections (tixagevimab and cilgavimab). EVUSHELD will be given to you by your healthcare provider as 2 intramuscular injections, given one after the other. Viruses can molder pipe covering time (mutate) and develop into a slightly [...] caused by certain SARS-CoV-2 variants: Viruses can molder pipe covering time (mutate) and develop into a slightly [...] treatment or prevention of COVID-19 go to https://www.fda.gov/qbloqmbwc-rrzjbohyfoon-mtb- response/ivz-itjni-tykhekyskg-eql-wptwsk-rvwlzphmb/dvsscgyje-jnq-yuulekhmcpmtx for more information. It is your choice [...] to FDA MedWatch at www.fda.gov/medwatch or call 9-197-WEX-1088 or call [employer] . Additional Information If you have questions, visit the website or call the telephone number provided below. Website Telephone number http://www.Mojeek How can I learn more about COVID-19? Ask your healthcare provider. Visit https://www.cdc.gov/COVID19 Contact your local or state public health department. What is an Emergency Use Authorization? The [place] FDA has made EVUSHELD (tixagevimab co-packaged with cilgavimab) available under an emergency access mechanism called an Emergency Use Authorization EUA. The EUA is supported by a [employer] of Health and Human Service ([facility]) declaration that circumstances exist to justify [...] monohydrate, polysorbate 80, sucrose, water. Distributed by: [employer], [place], [place] Manufactured for: [employer] [place], [place] [employer] 2021. All rightsreserved. documented in this encounterSelect Medical Specialty Hospital [facility]10-21-2022 Miscellaneous Notes* Telephone Encounter - Paresh Fonseca MD - 12/05/2021 3:05 PM EDT Evusheld (tixagevimab/cilgavimab) Eligibility and Patient Discussion The patient agrees to receive Evusheld (tixagevimab 300 mg and cilgavimab 300 mg) at [place]. The patient verbalized understanding of repeating a COVID test 72 hours prior to the injections. called up patient in response to her [employer] message today she tested covid negative on a rapid test on Wednesday this week Discussed evushed fact sheet and she agrees to proceed she will retest again today to be scheduled for Friday 12/08 at [facility] Paresh Fonseca MD documented in this encounterSelect Medical Specialty [facility]10-03-2022 Instructions* Patient Instructions* No Reeder DO - 11/17/2021 4:26 PM EDT -- continue coumadin -- will get vascular ultrasound for vein and artery of your right leg -- will have you see my interventional cardiology partner regarding your peripheral artery disease and if your artery disease is impairing your wound healing for the leg ulcer documented in this encounterSelect Medical Specialty Hospital [facility]10-03-2022 History of Present illness Narrative* No Reeder DO - 11/17/2021 3:53 PM EDT Images from the original note were not included. [facility] [place] [facility] Department of Cardiovascular Medicine SECTION [...] DVT scan. Leg elevation. No Reeder DO, [facility] Vascular Medicine documented in this encounter[address]16-2022 History of Past illness Narrative* Problem Noted Date Resolved Date Altered tissue perfusion 022 documented as of this encounter (statuses as of 09/30/2021) [address]16-2022 History of Past illness Narrative* Problem Noted Date Resolved Date Altered tissue perfusion documented as of this encounter (statuses as of 10/09/2021) [address]16-2022 History of Past illness Narrative* Problem Noted Date Resolved Date Altered tissue perfusion documented as of this encounter (statuses as of 11/18/2021) [address]16-2022 History of Past illness Narrative* Problem Noted Date Resolved Date Altered tissue perfusion documented as of this encounter (statuses as of 12/01/2021) [address]16-2022 History of Past illness Narrative* Problem Noted Date Resolved Date Altered tissue perfusion documented as of this encounter (statuses as of 12/05/2021) [address]16-2022 History of Past illness Narrative* Problem Noted Date Resolved Date Altered tissue perfusion 022 documented as of this encounter (statuses as of 12/08/2021) [address]16-2022 History of Past illness Narrative* Problem Noted Date Resolved Date Altered tissue perfusion 022 documented as of this encounter (statuses as of 12/08/2021) [address]16-2022 History of Past illness Narrative* Problem Noted Date Resolved Date Altered tissue perfusion 2 022 documented as of this encounter (statuses as of 12/12/2021) [address]16-2022 History of Past illness Narrative* Problem Noted Date Resolved Date Altered tissue perfusion 09/30/2 022 documented as of this encounter (statuses as of 12/15/2021) [address]16-2022 History of Past illness Narrative* Problem Noted Date Resolved Date Altered tissue perfusion 09/30/2 022 documented as of this encounter (statuses as of 12/16/2021) [address]16-2022 History of Past illness Narrative* Problem Noted Date Resolved Date Altered tissue perfusion 08/16/2 022 documented as of this encounter (statuses as of 12/31/2021) [address]16-2022 History of Past illness Narrative* Problem Noted Date Resolved Date Altered tissue perfusion 16/2 022 documented as of this encounter (statuses as of 01/13/2022) [address]16-2022 History of Past illness Narrative* Problem Noted Date Resolved Date Altered tissue perfusion 16/2 022 documented as of this encounter (statuses as of 01/20/2022) [address]16-2022 History of Past illness Narrative* Problem Noted Date Resolved Date Altered tissue perfusion 16/2 022 documented as of this encounter (statuses as of 02/06/2022) [address]16-2022 History of Past illness Narrative* Problem Noted Date Resolved Date Altered tissue perfusion 16/2 022 documented as of this encounter (statuses as of 02/20/2022) [address]16-2022 History of Past illness Narrative* Problem Noted Date Resolved Date Altered tissue perfusion 16/2 022 documented as of this encounter (statuses as of 02/26/2022) [address]16-2022 History of Past illness Narrative* Problem Noted Date Resolved Date Altered tissue perfusion 16/2 022 documented as of this encounter (statuses as of 02/27/2022) [address]16-2022 History of Past illness Narrative* Problem Noted Date Resolved Date Altered tissue perfusion 16/2 022 documented as of this encounter (statuses as of 03/21/2022) [address]16-2022 History of Past illness Narrative* Problem Noted Date Resolved Date Altered tissue perfusion 16/2 022 documented as of this encounter (statuses as of 03/30/2022) [address]16-2022 History of Past illness Narrative* Problem Noted Date Resolved Date Altered tissue perfusion /16/2 022 documented as of this encounter (statuses as of 04/06/2022) [address]16-2022 History of Past illness Narrative* Problem Noted Date Resolved Date Altered tissue perfusion /16/2 022 documented as of this encounter (statuses as of 05/13/2022) [address]16-2022 History of Past illness Narrative* Problem Noted Date Diagnosed Date Resolved Date Altered tissue perfusion documented as of this encounter (statuses as of 2022) [facility]08-16-2022 History of Past illness Narrative* Problem Noted Date Diagnosed Date Resolved Date Altered tissue perfusion documented as of this encounter (statuses as of 10/29/2022) [facility]08-16-2022 Miscellaneous Notes* Telephone Encounter - Katina Duque [...] Katina Duque [facility] Miscellaneous Notes* Telephone Encounter - Van Olivarez [...] Rosibel Daniel [facility] Miscellaneous Notes* Telephone Encounter - Van Olivarez APRN.CNP - 06/05/2021 4:46 PM EDT Spoke with pt regarding latest results, scr. at baseline. TAC level 8.6 prev two levels in 5 range.He believes latest level would be 12hr trough. No changes for now, if next level >7, can consider if reduction appropriate. He understands. Van Olivarez APRN.CNP [facility] Diagnosis Screening for genitourinary condition Screening for other and unspecified genitourinary condition documented [facility] this encounter [facility]* Diagnosis Acute deep vein thrombosis (DVT) of proximal end of right lower extremity ([facility])- Primary PAD (peripheral artery disease) ([facility]) Peripheral vascular disease, unspecified Nonhealing ulcer of heel ([facility]) Anticoagulation management encounter Encounter for therapeutic drug monitoring documented in this encounter [facility] note* Diagnosis Encounter for prophylactic measures, unspecified- Primary documented in this encounter [facility] note* Diagnosis Kidney replaced by transplant- Primary documented in this encounter [facility] note* Diagnosis MRSA bacteremia- Primary Bacteremia Diabetic foot ulcer with osteomyelitis ([facility]) Type II or unspecified type diabetes mellitus with other specified manifestations, not stated as uncontrolled ILIANA (acute kidney injury) ([facility]) Acute kidney failure, unspecified documented in this encounter [facility] note* Diagnosis Kidney replaced by transplant- Primary 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 snf current use of immunosuppressive drug documented in this encounter [facility] note* Diagnosis Hx of BKA, right ([facility])- Primary PAD (peripheral artery disease) ([facility]) Peripheral vascular disease, unspecified Mixed hyperlipidemia due to type 2 diabetes mellitus ([facility]) Type II or unspecified type diabetes mellitus with renal manifestations, uncontrolled(250.42) Type II or unspecified type diabetes mellitus with renal manifestations, uncontrolled Type 2 diabetes mellitus with diabetic neuropathy, with long-term current use of insulin (HCC) Type 2 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, with long-term current use of insulin ([facility]) Paroxysmal atrial fibrillation ([facility]) Atrial fibrillation documented in this encounter [facility]* Diagnosis Screening for genitourinary condition Screening for other and unspecified genitourinary condition documented in this encounter [facility] note* Diagnosis Onset Date Resolution Status At high risk for skin breakdown chronic Diabetes chronic Fecal incontinence chronic Limited mobility chronic Poor appetite chronic Pressure ulcer of sacral region, unstageable chronic Candidiasis resolved [facility] Work Phone: Evaluation noteNo InformationNortWellSpan [facility] Other Evaluation note* Diagnosis Kidney replaced by transplant- Primary [facility]* Diagnosis Type 1 diabetes mellitus with [...] COLONOSCOPY 1995,2001, 2014 Hospitalization History see above 9DIAMOND Other Progress note Author Sadia Aguilar [facility] July 20, 2022 1:48pm Note Date/Time July 20, 2022 1:48p m [facility] [address] [place] [address] Wound Center Provider Note Signed Patient: Alex Almonte MR#: [id number] : 1945 Acct:[id number] Age/Sex: 76 / M Copies to: DO Sadia Whyte APRN~ HPI Date of Visit Date of Visit: Date of Service: 07/20/2022 Time of Service: 13:46 Narrative HPI: 12/30/21 Alex is a 76 year old male presenting to [facility] wound care for aninitial visit for eval and treatment of a sacral/coccyx area pressure ulcer. He resides at [facility]. There is an ANALYST GEOCHEMICAL PROSPECTING present for the visit. Medicalhoney gel will [...] his brief that was cleaned by this pattern chart writer as well as another nursing staff [...] from initial visit here Mode of Arrival/ Animal Anatomy Teacher: Facility vehicle Assistive Device Used Today: Wheelchair and Indra Lives with:: Care/Nursing Facility Appetite Description: Within Normal Limits Who helps w/ dressing change?: Nursing Facility Why Do You Need Help?: Can't Reach Ulcer, Limited mobility and Taxing effort to leave home Smoking Status: Former smoker [facility] Medical History (Updated 03/03/22 @ 14:41 [...] <Electronically signed by DAVID Aguilar> 07/20/22 1348 [facility] Work Phone: Reason for referral (narrative)* Outpatient Procedure (Routine) - Authorized Specialty Diagnoses / Procedures Referred By Contac t Referred To Contact [facility] Diagnoses PAD (peripheral artery disease) (HCC) Nonhealing ulcer of heel (HCC) Procedures US LEG ARTERIAL PERIPH UNL VAS LAB DUP-SCAN LXTR ART/ARTL BPGS UNI/LMTD STUDY No Reeder DO [address] [place] [address] [facility] [place] [address] Referral ID Status Reason Start Date Expiration Date Visits Requested Visits Authorized [id number] Authorized Auto-Generat ed Referral 11/17/2021 11/17/2022 1 1 * Outpatient Procedure (Routine) - Authorized Specialty Diagnoses / Procedures Referred By Contac t Referred To Contact [facility] Diagnoses Acute deep vein thrombosis (DVT) of proximal end of right lower extremity (HCC) Procedures US LEG VEIN DVT UNL VAS LAB DUP-SCAN XTR VEINS UNILATERAL/LIMITED STUDY No Reeder DO [address] [place] [address] [place] [address] Referral ID Status Reason Start Date Expiration Date Visits Requested Visits Authorized [id number] Authorized Auto-Generat ed Referral 11/17/2021 11/17/2022 1 1 * Consult, Test, Treat (Routine) - Authorized Specialty Diagnoses / Procedures Referred By Contac t Referred To Contact Cardiology Diagnoses PAD (peripheral artery disease) (HCC) Nonhealing ulcer of heel (HCC) Procedures CONSULT TO CARDIOLOGY OFFICE/OUTPATIENT [facility] HIGH MDM 60-74 MINUTES Savanah Marcelo MD [address] [place] [address] Referral ID Status Reason Start Date Expiration Date Visits Requested Visits Authorized [id number] Authorized PCP Requested Referral 11/17/2021 11/17/2022 1 1 [facility] Summary Purpose Family History No Family History Records Found Relationship Condition Age at Onset Recorded Date/T kartik father Aneurysm Unknown father Parkinson's disease Unknown Advance Directives No Advanced Directives Records FoundDocuments on File Type Date Recorded Patient Telecommunications Project Manager Expl anation Advance Directive(s) Latest Code [...] Maker Relationship: M ajority of Adult Siblings (utility sales representative) DNR-CCA 09/26/2021 11:56 AM 10/01/2021 [...] Decision Maker Relationship: Majority of Adult Siblings (utility sales representative) Code Status History Code Status [...] Reason for Visit Chief Complaint Open Wound ([facility]) Reason for Visit At high risk [...] and content) DATE CREATED AUTHOR 02/20/2021 [facility] DATE CREATED AUTHOR AUTHOR'S ORGANIZ ATION 07/25/2022 [facility] DATE CREATED AUTHOR AUTHOR'S ORGANIZ ATION 08/16/2022 [facility] DATE CREATED AUTHOR AUTHOR'S ORGANIZ ATION 09/17/2022 [facility] DATE CREATED AUTHOR AUTHOR'S ORGANIZ ATION 01/14/2023 [facility] DATE CREATED AUTHOR AUTHOR'S ORGANLUPE ATION 03/20/2023 [facility] EPIC Source Comments (unrecognize d section and content) In the event this informatio n is protected by the Federal Confidentiality of Alcohol and Drug Abuse Patient Records regulations: The Federal rules restrict any use of the information to criminally investigate or prosecute any alcohol or drug abuse patient.[facility] the event this information is protected by the Federal Confidentiality of Alcohol and Drug Abuse Patient Records regulations: The Federal rules restrict any use of the information to criminally investigate or prosecute any alcohol or drug abuse patient.[facility] the event this information is protected by the Federal Confidentiality of Alcohol and Drug Abuse Patient Records regulations: The Federal rules restrict any use of the information to criminally investigate or prosecute any alcohol or drug abuse patient.[facility] the event this information is protected by the Federal Confidentiality of Alcohol and Drug Abuse Patient Records regulations: The Federal rules restrict any use of the information to criminally investigate or prosecute any alcohol or drug abuse patient.[facility] the event this information is protected by the Federal Confidentiality of Alcohol and Drug Abuse Patient Records regulations: The Federal rules restrict any use of the information to criminally investigate or prosecute any alcohol or drug abuse patient.[facility] the event this information is protected by the Federal Confidentiality of Alcohol and Drug Abuse Patient Records regulations: The Federal rules restrict any use of the information to criminally investigate or prosecute any alcohol or drug abuse patient.[facility] the event this information is protected by the Federal Confidentiality of Alcohol and Drug Abuse Patient Records regulations: The Federal rules restrict any use of the information to criminally investigate or prosecute any alcohol or drug abuse patient.[facility] the event this information is protected by the Federal Confidentiality of Alcohol and Drug Abuse Patient Records regulations: The Federal rules restrict any use of the information to criminally investigate or prosecute any alcohol or drug abuse patient.[facility] the event this information is protected by the Federal Confidentiality of Alcohol and Drug Abuse Patient Records regulations: The Federal rules restrict any use of the information to criminally investigate or prosecute any alcohol or drug abuse patient.[facility] the event this information is protected by the Federal Confidentiality of Alcohol and Drug Abuse Patient Records regulations: The Federal rules restrict any use of the information to criminally investigate or prosecute any alcohol or drug abuse patient.[facility] the event this information is protected by the Federal Confidentiality of Alcohol and Drug Abuse Patient Records regulations: The Federal rules restrict any use of the information to criminally investigate or prosecute any alcohol or drug abuse patient.[facility] the event this information is protected by the Federal Confidentiality of Alcohol and Drug Abuse Patient Records regulations: The Federal rules restrict any use of the information to criminally investigate or prosecute any alcohol or drug abuse patient.[facility] the event this information is protected by the Federal Confidentiality of Alcohol and Drug Abuse Patient Records regulations: The Federal rules restrict any use of the information to criminally investigate or prosecute any alcohol or drug abuse patient.[facility] the event this information is protected by the Federal Confidentiality of Alcohol and Drug Abuse Patient Records regulations: The Federal rules restrict any use of the information to criminally investigate or prosecute any alcohol or drug abuse patient.[facility] the event this information is protected by the Federal Confidentiality of Alcohol and Drug Abuse Patient Records regulations: The Federal rules restrict any use of the information to criminally investigate or prosecute any alcohol or drug abuse patient.[facility] the event this information is protected by the Federal Confidentiality of Alcohol and Drug Abuse Patient Records regulations: The Federal rules restrict any use of the information to criminally investigate or prosecute any alcohol or drug abuse patient.[facility] the event this information is protected by the Federal Confidentiality of Alcohol and Drug Abuse Patient Records regulations: The Federal rules restrict any use of the information to criminally investigate or prosecute any alcohol or drug abuse patient.[facility] the event this information is protected by the Federal Confidentiality of Alcohol and Drug Abuse Patient Records regulations: The Federal rules restrict any use of the information to criminally investigate or prosecute any alcohol or drug abuse patient.[facility] the event this information is protected by the Federal Confidentiality of Alcohol and Drug Abuse Patient Records regulations: The Federal rules restrict any use of the information to criminally investigate or prosecute any alcohol or drug abuse patient.[facility] the event this information is protected by the Federal Confidentiality of Alcohol and Drug Abuse Patient Records regulations: The Federal rules restrict any use of the information to criminally investigate or prosecute any alcohol or drug abuse patient.[facility] the event this information is protected by the Federal Confidentiality of Alcohol and Drug Abuse Patient Records regulations: The Federal rules restrict any use of the information to criminally investigate or prosecute any alcohol or drug abuse patient.[facility] the event this information is protected by the Federal Confidentiality of Alcohol and Drug Abuse Patient Records regulations: The Federal rules restrict any use of the information to criminally investigate or prosecute any alcohol or drug abuse patient.[facility] the event this information is protected by the Federal Confidentiality of Alcohol and Drug Abuse Patient Records regulations: The Federal rules restrict any use of the information to criminally investigate or prosecute any alcohol or drug abuse patient.[facility] the event this information is protected by the Federal Confidentiality of Alcohol and Drug Abuse Patient Records regulations: The Federal rules restrict any use of the information to criminally investigate or prosecute any alcohol or drug abuse patient.[facility] the event this information is protected by the Federal Confidentiality of Alcohol and Drug Abuse Patient Records regulations: The Federal rules restrict any use of the information to criminally investigate or prosecute any alcohol or drug abuse patient.[facility] the event this information is protected by the Federal Confidentiality of Alcohol and Drug Abuse Patient Records regulations: The Federal rules restrict any use of the information to criminally investigate or prosecute any alcohol or drug abuse patient.[facility] Reason for Visit (unrecogniz ed section and [...] Care Teams (unrecognized sec tion and content) Custom Dressmaker Relationship Specialty Start Date End Date Devon Moreira, DO [address] [place] [address] PCP - General 05/27/00 Custom Dressmaker Relationship Specialty Start Date End Date Devon Moreira, DO [address] [place] [address] PCP - General 05/27/00 Custom Dressmaker Relationship Specialty Start Date End Date Devon Moreira, DO [address] [place] [address] PCP - General 05/27/00 Custom Dressmaker Relationship Specialty Start Date End Date Devon Moreira, DO [address] [place] [address] PCP - General 05/27/00 Custom Dressmaker Relationship Specialty Start Date End Date Devon Moreira, DO [address] [place] [address] PCP - General 05/27/00 Custom Dressmaker Relationship Specialty Start Date End Date Devon Moreira, DO [address] [place] [address] PCP - General 05/27/00 Custom Dressmaker Relationship Specialty Start Date End Date Devon Moreira, DO [address] [place] [address] PCP - General 05/27/00 Custom Dressmaker Relationship Specialty Start Date End Date Devon Moreira, DO [address] [place] [address] PCP - General 05/27/00 Custom Dressmaker Relationship Specialty Start Date End Date Devon Moreira, DO [address] [place] [address] PCP - General 05/27/00 Custom Dressmaker Relationship Specialty Start Date End Date Devon Moreira, DO [address] [place] [address] PCP - General 05/27/00 Custom Dressmaker Relationship Specialty Start Date End Date Devon Moreira, DO [address] [place] [address] PCP - General 05/27/00 Custom Dressmaker Relationship Specialty Start Date End Date Devon Moreira, DO [address] [place] [address] PCP - General 05/27/00 Custom Dressmaker Relationship Specialty Start Date End Date Devon Moreira, DO [address] [place] [address] PCP - General 05/27/00 Custom Dressmaker Relationship Specialty Start Date End Date Devon Moreira, DO [address] [place] [address] PCP - General 05/27/00 Custom Dressmaker Relationship Specialty Start Date End Date Devon Moreira, DO [address] [place] [address] PCP - General 05/27/00 Custom Dressmaker Relationship Specialty Start Date End Date Devon Moreira, DO [address] [place] [address] PCP - General 05/27/00 Custom Dressmaker Relationship Specialty Start Date End Date Devon Moreira, DO [address] [place] [address] PCP - General 05/27/00 Custom Dressmaker Relationship Specialty Start Date End Date Devon Moreira, DO [address] [place] [address] PCP - General 05/27/00 Custom Dressmaker Relationship Specialty Start Date End Date Devon Moreira DO [address] [place] [address] PCP - General 05/27/00 Team Status: Active Member Role Status Dates Devon Moreira DO Primary Care Provider Active Team Status: Inactive Member Role Status Dates Devon Moreira DO Primary Care Provider Active Sadia Aguilar APRN Attending Provider Active Custom Dressmaker Relationship Specialty Start Date End Date Devon Moreira DO [address] [place] [address] PCP - General 05/27/00 Custom Dressmaker Relationship Specialty Start Date End Date Devon Moreira DO [address] [place] [address] PCP - General 05/27/00 Custom Dressmaker Relationship Specialty Start Date End Date Ni Cabrera, [address] [facility] [address] [place] [address] PCP - ACO Reach 07/09/22 Devon Moreira MD [address] [place] [id number] PCP - General Internal Medicine 07/14/22 PRN Active and Recently Administ ered Medications (unrecognized section and content) Medication Order 01/10/2022 01/11/2022 01/12/2022 lidocaine (PF) 10 mg/mL (1 %) injection (XYLOCAINE) SUBCUTANEOUS, X (OR/PROCEDURE) PRN, Starting on Wed01/12/22 at 1032, Until Wed01/13/22 at 0303, Intraprocedure 1032 (Given - Provid er: Vani Hdz APRN.HEALTH AND SAFETY CONSULTANT) Goals (unrecognized section and content) Goals may [...] BE BASED ON THE PRIMARY CLINICAL RECORDS. [facility] [employer] [facility]. provides no warranty or guarantee of the accuracy or completeness of information in this document.
[2023-04-07 07:50] LABS: Basophils Absolute Auto 0.1 10^3/uL (0.0-0.1); Basophils Percent Auto 0.7 % (0.2-2.0); Eosinophils Absolute Auto 0.3 10^3/uL (0.0-0.7); Eosinophils Percent Auto 3.8 % (0.9-7.0); Hemoglobin 10.3 g/dL (14.0-18.0); Immature Granulocytes Abs Auto 0.02 10^3/uL (0.00-0.03); Immature Granulocytes Pct Auto 0.3 % (0.0-0.5); Lymphocytes Absolute Auto 2.6 10^3/uL (1.2-3.8); Lymphocytes Percent Auto 37.9 % (20.5-60.0); Mean Corpuscular HGB Conc 31.2 g/dL (29.9-35.2); Mean Corpuscular Hemoglobin 27.2 pg (25.9-34.0); Mean Corpuscular Volume 87.1 fL (80.0-94.0); Mean Platelet Volume 10.8 fL (9.5-13.5); Monocytes Absolute Auto 0.8 10^3/uL (0.3-0.8); Monocytes Percent Auto 11.1 % (1.7-12.0); Neutrophils Absolute Auto 3.2 10^3/uL (1.4-6.5); Neutrophils Percent Auto 46.2 % (43.0-75.0); Platelet Count 231 10^3/uL (150-450); Red Blood Count 3.79 10^6/uL (4.70-6.10); White Blood Count 6.9 10^3/uL (4.0-11.0)
[2023-04-07 08:06] LABS: INR 2.57; Prothrombin Time 25.8 sec (9.0-11.6)
[2023-04-07 08:51] LABS: Alanine Aminotransferase 11 U/L (16-63); Albumin Globulin Ratio 0.8; Albumin Level 2.5 g/dL (3.4-5.0); Alkaline Phosphatase 59 U/L (46-116); Anion Gap 11.5; Aspartate Amino Transferase 17 U/L (15-37); BUN Creatinine Ratio 35.4; Bilirubin Total 0.6 mg/dL (0.2-1.0); Calcium 8.2 mg/dL (8.5-10.1); Carbon Dioxide 27.5 mmol/L (21.0-32.0); Chloride 104 mmol/L (98-107); Estimated GFR (African America 56 (>=60); Estimated GFR (Non-African Ame 46 (>=60); Globulin 3.2 g/dL; Glucose 179 mg/dL (74-106); Sodium 139 mmol/L (136-145); Total Protein 5.7 g/dL (6.4-8.2)
[2023-04-10 10:08] LABS: Tacrolimus (FK506), Blood 10.5 ng/mL (2.0-20.0)
== END 2023-04-07 00:45 | disposition home or self-care (01) ==
LOC: LAB 00:44
PROVIDERS: PCP Internal Medicine; Visit Provider Internal Medicine
DX: N18.9 Chronic kidney disease, unspecified (principal); Z51.81 Encounter for therapeutic drug level monitoring
CPT/HCPCS: 36415; 80053; 80197; 85025; 85610

== ENCOUNTER 2023-04-14 02:29 | Outpatient (REF) | payer MEDICARE, OTHER, SELFPAY ==
--- OUTSIDE RECORDS SUMMARY | 2023-04-14 02:34 | XMS_ITS | CCD ---
Author Name Unknown Address [address] [place] [address] Organization [facility] Care Team Providers Care Site Technician Name Role Phone PROVIDER, UNKNOWN Attending Unavailable [...] e MARKER ., DR WASHINGTON Consulting Unavailable KACNHAN ., MARY ANN Consulting Unavailable KARTHIK POLANCO [...] BALL, DR TAM Attending Unavailable BALL, DR ATM Admitting Unavailable BALL, DR TAM Primary Care [...] Unavailable DO Devon Moreira Primary Care Provider [phone] DAVID Aguilar Attending Provider [phone] Sadia Aguilar Attending Unavailable Sadia Aguilar Admitting Unavailable Devon Moreira Primary Care Unavailable SARTHAK PARNELL Attending Unavailable MILAGRO QUEEN Referring Unavailable MILAGRO QUEEN Referring Unavailable DEVON MOREIRA Referring Unavailable HINA PETERSON Attending Unavailable DEVON MOREIRA Primary Care Unavailable ARTUR CHEN Referring Unavailable DEVON MOREIRA Primary Care Unavailable Ni Cabrera DO Unavailable [phone] Devon Moreira MD Primary Care Provider NI CABRERA Attending Unavailable DEVON MOREIRA Referring Unavailable Allergies Allergy Classification Reported Allergen(s) Allergy Type Date of Onset Reaction(s) Facility (20 sources) Pyridostigmine; Translations: [PYRIDOSTIGMINE BROMIDE] Drug Allergy 2 GI Upset [facility] Work Phone: (1 source) ALLERGIES NOT ON FILE; Translations: [ALLERGIES NOT ON FILE] Propensity to adverse reactions (disorder) [facility] Repository (1 source) Pyridostigmine Drug Allergy [...] Indications: Type 1 diabetes mellitus with nephropathy ([facility]) 3 units breakfast, 5 units lunch, [...] 10 units and notify provider K Phos T[facility] [employer] [facility]arrant [phone] MG (5 sources) take 155-852 tablets by mouth twice daily K Phos Tarrant-Sod Phos Di [employer] Tarrant 155-852-130 MG 1 tablet Orally twice daily Active take 155-852 tablets by mouth four times daily take 155-852 tablets by mouth four times daily K Phos Tarrant-Sod Phos Di & Tarrant 155-852-130 MG 1 tablet Orally Four times [...] needed. docusate sodium 50 mg / sennosides, nursing home 8.6 mg oral tablet (20 sources) [...] by mouth daily with lunch. Magic Cup Imperial with lunch 7110 mL 0 12/11/2021 Active Comment on above: Take 237 mL by mouth daily with lunch. Magic Cup Imperial with lunch polyethylene glycol 3350 64875 mg powder for oral solution (20 sources) [...] Comment on above: TAKE 1 TABLET BY [facility] DAILY AT BEDTIME. tacrolimus 1 mg [...] Active Start: 01-23-2019 take 1 capsule by [facility] twice daily tacrolimus IR (PROGRAF) 1 mg capsule Take 1 capsule by mouth twice daily. 180 capsule 3 10/09/2021 Suspended Comment on above: TAKE 1 CAPSULE BY MO UT TWICE A DAY*Z94.0* Take 1 capsule by mo [facility] twice daily. Take 2 capsules by [...] Coronary arteriosclerosis; Translations: [Atherosclerotic heart disease of inupiat coronary artery without angina pectoris] Onset: 7 [...] current use of immunosuppressive drug; Translations: [Other extermination supervisor (current) drug therapy] Episodic Other aftercare (12 sources) Long-term current use of insulin; Translations: [longterm (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 of insulin] Episodic Other aftercare (10 sources) terminal make up operator (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 of insulin; Translations: [JAIL CURRENT USE OF INSULIN] Onset: 2 Episodic Other aftercare (5 sources) terminal make up operator (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 of anticoagulants; Translations: [PEDIATRICIAN ACTIVE PRACTICE CURRNT USE ANTICOAGULANTS] Onset: 3 Episodic Other [...] 07-30-2006 Episodic Other aftercare (2 sources) Other extermination supervisor (current) drug therapy; Translations: [OTH PEDIATRICIAN ACTIVE PRACTICE CURRENT DRUG THERAPY] Onset: 02-05-2022 Episodic Other aftercare (4 sources) Encounter for orthopedic aftercare following surgical amputation; Translations: [ENC ORTHOPED AFTERCARE FLW SURG AMP] Onset: 02-05-2022 Episodic Other aftercare (4 sources) terminal make up operator (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 of antibiotics; Translations: [JAIL CURRENT USE ANTIBIOTICS] Onset: 12-20-2021 Episodic Other aftercare (1 source) terminal make up operator (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 of aspirin; Translations: [JAIL CURRENT USE OF ASPIRIN] Onset: 01-19-2022 Episodic [...] Interpretation and review of laboratory results Normal [facility] POCT glycosylated hemoglobin (Hb A1C) docked deviceon 03-18-2023 HbA1c (Bld) [Mass fraction] 7.8 % [facility] Sonya 12-25-2022 DIAMANTEN Telephone (TXCTGL) ALEX ALMONTE ([id number]) 1945 M Date Time Provider Department 12/25/22 KIDNEY TXP COORDINATORS TXCTGL During your visit today, we recorded the following information about you: Duane Ryan 12/25/2022 10:41 AM Signed Labs 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 Administrative Corrosion Control Technician Allergies As of Date: 12/25/2022 Noted Allergy [...] by mouth daily with lunch. 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 Magic Cup Imperial with lunch aspirin, enteric coated (ASPIRIN, ENTERIC [...] am? thanks! RF Pts RN at [facility] reports pts sister picks up Rx from [...] Apply 0. (more content not included)... Normal [facility] Office Visiton 09-09-2022 Follow-up visit [id number] Alex Almonte 1945 M Date Provider Department Center 09/09/2022 1596-SARTHAK PARNELL [facility] Family History Problem Relation Age of Onset Cancer Mother Aneurysm Father Cancer Father Parkinsonism Father Family Status - Relation Status Age at Mother Father Level of Service:84385 AR OFFICE/OUTPATIENT ESTABLISHED MOD MDM 30-39 MIN Normal [facility] Glucose Poct Glucometerson 0 07-20-2022 Commemt1 Glu2: Cleaned Meter Normal [facility] Comment on above: Result Comment: PERF ORMED BY: [facility] [address] [place] [address] PATHOLOGIST FILLER SHREDDER JOSE F ELLIOTT M.D. Performed By: #### G LURICO #### Point of Care testing , Glucose [Mass/Vol] 176 mg/dL Normal [facility] Comment on above: Result Comment: [place] Glucose Reference Range is dependent on time and content of last meal. Glucose of more than 200 mg/dL in a nonstressed, ambulatory subject supports the diagnosis of Diabetes Mellitus. Performed By: #### G MADY #### Point of Care testing , FK506 (TACROLIMUS) WHOLE BLO ODon 07-12-2022 Tacrolimus (FK506), Blood 10.9 ng/mL Normal 2.0-20.0 [facility] Comment on above: Result Comment: Trou gh (immediately following transplant) 15.0 . Trough (steady state, 2 weeks or more after transplant): 3.0 - 8.0 . Performed by LC-MS/MS technology. Performed By: #### F K506T ####[facility] [address] [place], [place] [address]Dr. Farhat Lael CBC AUTO DIFFon 07-10-2022 BASO # 0.0 103/ul Normal 0.0-0.1 [facility] Comment on above: Performed By: #### C BC ####[facility] [address] [place], [place] [address]Dr. Farhat Leal Basophils/100 WBC (Bld) 0.5 % Normal 0.2-2.0 [facility] Comment on above: Performed By: #### C BC ####[facility] [address] [place], [place] [address]Dr. Farhat Leal EO # 0.3 103/ul Normal 0.0-0.7 [facility] Comment on above: Performed By: #### C BC ####[facility] Of[address]ix[address] [place], [place] [address]Dr. Farhat Leal Eosinophils/100 WBC (Bld) 4.9 % Normal 0.9-7.0 [facility] Comment on above: Performed By: #### C BC ####[facility] [address] [place], [place] [address]Dr. Farhat Leal Erythrocyte distribution width (RBC) [Ratio] 13.8 % Normal 11.0-15.0 [facility] Comment on above: Performed By: #### C BC ####[facility] [address] [place], [place] [address]Dr. Farhat Leal Hematocrit (Bld) [Volume fraction] 36.6 % Critically low 42.0-54.0 [facility] Comment on above: Performed By: #### C BC ####[facility] [address] [place] [id number]. Farhat Leal Hemoglobin (Bld) [Mass/Vol] 12.2 g/dL Critically low 14.0-18.0 [facility] Comment on above: Performed By: #### C BC ####[facility] [address] [place] [id number]. Farhat Leal IG # 0.01 10e3/ul Normal 0.00-0.03 [facility] Comment on above: Performed By: #### C BC ####[facility] [address] [place], [place] [address]Dr. Farhat Leal IG % 0.2 % Normal 0.0-0.5 [facility] Comment on above: Performed By: #### C BC ####[facility] [address] [place], [place] [address]Dr. Farhat Leal LYMPH # 2.2 103/ul Normal 1.2-3.8 [facility] Comment on above: Performed By: #### C BC ####[facility] [address] [place], [place] [address]Dr. Farhat Leal Lymphocytes/100 WBC (Bld) 33.9 % Normal 20.5-60.0 [facility] Comment on above: Performed By: #### C BC ####[facility] [address] [place], [place] [address]Dr. Farhat Leal MANUAL DIFF REQ NO Normal [facility] Comment on above: Performed By: #### C BC ####[facility] [address] [place], [place] [address]Dr. Farhat Leal MCH (RBC) [Entitic mass] 31.0 pg Normal 25.9-34.0 [facility] Comment on above: Performed By: #### C BC ####[facility] [address] [place], [place] [address]Dr. Farhat Leal MCHC (RBC) [Mass/Vol] 33.3 g/dL Normal 29.9-35.2 [facility] Comment on above: Performed By: #### C BC ####[facility] [address] [place] [id number]. Farhat Leal MCV (RBC) [Entitic vol] 93.1 fL Normal 80.0-94.0 [facility] Comment on above: Performed By: #### C BC ####[facility] [address] [place] [phone]. Farhat Leal MONO # 0.7 103/ul Normal 0.3-0.8 [facility] Comment on above: Performed By: #### C BC ####[facility] [address] [place] [phone]. Farhat Leal Monocytes/100 WBC (Bld) 10.8 % Normal 1.7-12.0 [facility] Comment on above: Performed By: #### C BC ####[facility] [address] [place] [phone]. Farhat Leal NEUT # 3.2 103/ul Normal 1.4-6.5 [facility] Comment on above: Performed By: #### C BC ####[facility] [address] [place] [phone]. Farhat Leal Neutrophils/100 WBC (Bld) 49.7 % Normal 43.0-75.0 [facility] Comment on above: Performed By: #### C BC ####[facility] [address] [place] [phone]. Farhat Leal Platelet mean volume (Bld) [Entitic vol] 10.9 fL Normal 9.5-13.5 [facility] Comment on above: Performed By: #### C BC ####[facility] [address]ifelt[address] [place] [phone]. Farhat Leal PLT 195 103/ul Normal 150-450 [facility] Comment on above: Performed By: #### C BC ####[facility] L[address]gt[address] [place] [phone]. Farhat Leal RBC 3.93 106/ul Critically low 4.70-6.10 [facility] Comment on above: Performed By: #### C BC ####[facility] [address] [place] [phone]. Farhat Leal WBC 6.4 103/ul Normal 4.0-11.0 [facility] Comment on above: Performed By: #### C BC ####[facility] [address] [place] [address]Dr. Farhat Leal MAGNESIUMon 07-10-2022 Magnesium [Mass/Vol] 1.9 mg/dL Normal 1.8-2.4 [facility] Comment on above: Performed By: #### M G, PHOS ####[facility] [address] [place] [address]Dr. Farhat Leal PHOSPHORUSon 07-10-2022 Phosphate [Mass/Vol] 4.7 mg/dL Normal 2.6-4.7 [facility] Comment on above: Performed By: #### M Anais PHOS ####[facility] [address] [place], [place] [address]Dr. Farhat Leal PROF 14(COMP METB)on 023 Albumin [Mass/Vol] 2.7 g/dL Critically low 3.4-5.0 [facility] Comment on above: Performed By: #### C MP ####[facility] [address] [place], [place] [address]Dr. Farhat Leal Albumin/Globulin [Mass ratio] 0.8 {ratio} Normal [facility] Comment on above: Performed By: #### C MP ####[facility] [address] [place] [address]Dr. Farhat Leal ALP [Catalytic activity/Vol] 59 U/L Normal 46-116 [facility] Comment on above: Performed By: #### C MP ####[facility] [address] [place] [address]Dr. Farhat Leal ALT [Catalytic activity/Vol] 16 U/L Normal 16-63 [facility] Comment on above: Performed By: #### C MP ####[facility] [address] [place] [address]Dr. Farhat Leal Anion gap [Moles/Vol] 12.3 mmol/L Normal [facility] Comment on above: Performed By: #### C MP ####[facility] [address] [place] [phone]. Farhat Leal AST [Catalytic activity/Vol] 17 U/L Normal 15-37 [facility] Comment on above: Performed By: #### C MP ####[facility] [address] [place] [phone]. Farhat Leal Bilirubin [Mass/Vol] 0.5 mg/dL Normal 0.2-1.0 [facility] Comment on above: Performed By: #### C MP ####[facility] [address]fv[address] [place] [phone]. Farhat Leal Calcium [Mass/Vol] 8.5 mg/dL Normal 8.5-10.1 [facility] Comment on above: Performed By: #### C MP ####[facility] [address] [place], [place] [address]Dr. Farhat Leal Chloride [Moles/Vol] 104 mmol/L Normal 98-107 [facility] Comment on above: Performed By: #### C MP ####[facility] [address]kyigr[address] [place] [phone]. Farhat Leal CO2 [Moles/Vol] 27.6 mmol/L Normal 21.0-32.0 [facility] Comment on above: Performed By: #### C MP ####[facility] [address] [place] [phone]. Farhat Leal Creatinine [Mass/Vol] 1.79 mg/dL Critically high 0.70-1.30 [facility] Comment on above: Performed By: #### C MP ####[facility] [address]yx[address] [place] [phone]. Farhat Elvis EGFR-AF ETHIOPIAN 45 mL/min/1.73m2 Critically low >=60 [facility] Comment on above: Performed By: #### C MP ####[facility] [address]sov[address] [place] [phone]. Farhat Elvis EGFR-NON AF ETHIOPIAN 37 mL/min/1.73m2 Critically low >=60 [facility] Comment on above: Performed By: #### C MP ####[facility] [address] [place] [address]Dr. Farhat Leal Globulin (S) [Mass/Vol] 3.2 g/dL Normal [facility] Comment on above: Performed By: #### C MP ####[facility] [address]wt[address] [place] [phone]. Farhat Leal Glucose [Mass/Vol] 203 mg/dL Critically high 74-106 [facility] Comment on above: Performed By: #### C MP ####[facility] [address]qc[address] [place] [address]Dr. Farhat Leal Potassium [Moles/Vol] 3.9 mmol/L Normal 3.5-5.1 [facility] Comment on above: Performed By: #### C MP ####[facility] [address] [place] [address]Dr. Farhat Leal Protein [Mass/Vol] 5.9 g/dL Critically low 6.4-8.2 [facility] Comment on above: Performed By: #### C MP ####[facility] X[address] [place] [address]Dr. Farhat Leal Sodium [Moles/Vol] 140 mmol/L Normal 136-145 [facility] Comment on above: Performed By: #### C MP ####[facility] [address]fb[address] [place] [address]Dr. Farhat Leal Urea nitrogen [Mass/Vol] 61.0 mg/dL Critically high 7.0-18.0 [facility] Comment on above: Performed By: #### C MP ####[facility] [address] [place] [address]Dr. Farhat Leal Urea nitrogen/Creatinine [Mass ratio] 34.1 mg/mg Normal [facility] Comment on above: Performed By: #### C MP ####[facility] [address] [place] [phone]. Farhat Elvis PROTIMEon 07-10-2022 INR Coag (PPP) [Relative time] 2.95 {INR} Normal [facility] Comment on above: Performed By: #### P T ####[facility] [address] [place] [address]Dr. Farhat Leal INR GUIDELINES SEE BELOW Normal [facility] Comment on above: Result Comment: MALINA RED INR: 2.0 - 3.0 CONDITIONS NOT LISTED BELOW 2.5 - 3.5 FOR PROSTHETIC HEART VALVE REPLACEMENT 2.5 - 3.5 RECURRENT THROMBOSIS Performed By: #### P T ####[facility] [address] [place], [place] [address]Dr. Farhat Leal PT Coag (PPP) [Time] 29.4 s Critically high 9.0-11.6 [facility] Comment on above: Performed By: #### P T ####[facility] [address] [place], [place] [address]Dr. Farhat Leal FK506 (TACROLIMUS) WHOLE BLO ODon 07-07-2022 Tacrolimus (FK506), Blood 8.3 ng/mL Normal 2.0-20.0 [facility] Comment on above: Result Comment: Trou gh (immediately following transplant) 15.0 . Trough (steady state, 2 weeks or more after transplant): 3.0 - 8.0 . Performed by LC-MS/MS technology. Performed By: #### F K506T ####[facility] [address] [place], [place] [address]Dr. Farhat Leal CBC AUTO DIFFon 07-03-2022 BASO # 0.0 103/ul Normal 0.0-0.1 [facility] Comment on above: Performed By: #### C BC ####[facility] [address] [place], [place] [address]Dr. Farhat Leal Basophils/100 WBC (Bld) 0.6 % Normal 0.2-2.0 [facility] Comment on above: Performed By: #### C BC ####[facility] [address] [place], [place] [address]Dr. Farhat Leal EO # 0.3 103/ul Normal 0.0-0.7 [facility] Comment on above: Performed By: #### C BC ####[facility] Fe[address]eum[address] [place] [phone]. Farhat Leal Eosinophils/100 WBC (Bld) 4.1 % Normal 0.9-7.0 [facility] Comment on above: Performed By: #### C BC ####[facility] [address] [place] [phone]. Farhat Leal Erythrocyte distribution width (RBC) [Ratio] 14.0 % Normal 11.0-15.0 [facility] Comment on above: Performed By: #### C BC ####[facility] [address] [place], [place] [address]Dr. Farhat Leal Hematocrit (Bld) [Volume fraction] 35.9 % Critically low 42.0-54.0 [facility] Comment on above: Performed By: #### C BC ####[facility] [address] [place], [place] [address]Dr. Farhat Leal Hemoglobin (Bld) [Mass/Vol] 12.0 g/dL Critically low 14.0-18.0 [facility] Comment on above: Performed By: #### C BC ####[facility] [address] [place], [place] [address]Dr. Farhat Leal IG # 0.04 10e3/ul Critically high 0.00-0.03 [facility] Comment on above: Performed By: #### C BC ####[facility] [address]mt[address] [place], [place] [address]Dr. Farhat Leal IG % 0.6 % Critically high 0.0-0.5 [facility] Comment on above: Performed By: #### C BC ####[facility] [address] [place], [place] [address]Dr. Farhat Leal LYMPH # 1.5 103/ul Normal 1.2-3.8 [facility] Comment on above: Performed By: #### C BC ####[facility] [address] [place], [place] [address]Dr. Farhat Leal Lymphocytes/100 WBC (Bld) 21.5 % Normal 20.5-60.0 [facility] Comment on above: Performed By: #### C BC ####[facility] [address]fxk[address] [place] [id number]. Farhat Leal MANUAL DIFF REQ NO Normal [place] Comment on above: Performed By: #### C BC ####[facility] [address] [place] [phone]. Farhat Leal MCH (RBC) [Entitic mass] 30.8 pg Normal 25.9-34.0 [facility] Comment on above: Performed By: #### C BC ####[facility] [address]znjvs[address] [place] [phone]. Farhat Leal MCHC (RBC) [Mass/Vol] 33.4 g/dL Normal 29.9-35.2 [facility] Comment on above: Performed By: #### C BC ####[facility] [address] [place], [place] [address]Dr. Farhat Leal MCV (RBC) [Entitic vol] 92.1 fL Normal 80.0-94.0 [facility] Comment on above: Performed By: #### C BC ####[facility] [address] [place], [place] [address]Dr. Farhat Leal MONO # 0.6 103/ul Normal 0.3-0.8 [facility] Comment on above: Performed By: #### C BC ####[facility] [address] [place], [place] [address]Dr. Farhat Leal Monocytes/100 WBC (Bld) 8.7 % Normal 1.7-12.0 [facility] Comment on above: Performed By: #### C BC ####[facility] [address] [place], [place] [address]Dr. Farhat Leal NEUT # 4.4 103/ul Normal 1.4-6.5 [facility] Comment on above: Performed By: #### C BC ####[facility] [address] [place], [place] [address]Dr. Farhat Leal Neutrophils/100 WBC (Bld) 64.5 % Normal 43.0-75.0 [facility] Comment on above: Performed By: #### C BC ####[facility] [address] [place] [address]Dr. Farhat Leal Platelet mean volume (Bld) [Entitic vol] 10.1 fL Normal 9.5-13.5 [facility] Comment on above: Performed By: #### C BC ####[facility] [address] [place] [address]Dr. Farhat Leal PLT 177 103/ul Normal 150-450 [facility] Comment on above: Performed By: #### C BC ####[facility] R[address]dpbi[address] [place] [address]Dr. Farhat Leal RBC 3.90 106/ul Critically low 4.70-6.10 [place] Comment on above: Performed By: #### C BC ####[facility] [address] [place] [address]Dr. Farhat Leal WBC 6.8 103/ul Normal 4.0-11.0 [facility] Comment on above: Performed By: #### C BC ####[facility] [address]laoko[address] [place] [address]Dr. Farhat Leal PROF 14(COMP METB)on 023 Albumin [Mass/Vol] 2.8 g/dL Critically low 3.4-5.0 [facility] Comment on above: Performed By: #### C MP ####[facility] [address]ca[address] [place] [address]Dr. Farhat Leal Albumin/Globulin [Mass ratio] 0.8 {ratio} Normal [facility] Comment on above: Performed By: #### C MP ####[facility] [address] [place] [address]Dr. Farhat Leal ALP [Catalytic activity/Vol] 68 U/L Normal 46-116 [facility] Comment on above: Performed By: #### C MP ####[facility] [address] [place] [address]Dr. Farhat Leal ALT [Catalytic activity/Vol] 20 U/L Normal 16-63 [facility] Comment on above: Performed By: #### C MP ####[facility] [address]xy[address] [place] [id number]. Farhat Leal Anion gap [Moles/Vol] 11.1 mmol/L Normal [facility] Comment on above: Performed By: #### C MP ####[facility] [address]va[address] [place] [id number]. Farhat Leal AST [Catalytic activity/Vol] 22 U/L Normal 15-37 [facility] Comment on above: Performed By: #### C MP ####[facility] [address] [place], [place] [address]Dr. Farhat Leal Bilirubin [Mass/Vol] 0.4 mg/dL Normal 0.2-1.0 [facility] Comment on above: Performed By: #### C MP ####[facility] [address] [place], [place] [address]Dr. Farhat Leal Calcium [Mass/Vol] 8.5 mg/dL Normal 8.5-10.1 [facility] [facility] Comment on above: Performed By: #### C MP ####[facility] Ggkuzvfury[address] [place], [place] [address]Dr. Farhat Leal Chloride [Moles/Vol] 106 mmol/L Normal 98-107 [facility] Comment on above: Performed By: #### C MP ####[facility] Amosfdvwzx[address] [place], [place] [address]Dr. Farhat Leal CO2 [Moles/Vol] 29.1 mmol/L Normal 21.0-32.0 [facility] Comment on above: Performed By: #### C MP ####[facility] Klwiekyxwt[address] [place], [place] [address]Dr. Farhat Leal Creatinine [Mass/Vol] 1.70 mg/dL Critically high 0.70-1.30 [facility] Comment on above: Performed By: #### C MP ####[facility] Axqpeswgcm[address] [place], [place] [address]Dr. Farhat Leal EGFR-AF ETHIOPIAN 48 mL/min/1.73m2 Critically low >=60 [facility] Comment on above: Performed By: #### C MP ####[facility] [address] [place] [address]Dr. Farhat Leal EGFR-NON AF ETHIOPIAN 39 mL/min/1.73m2 Critically low >=60 [facility] Comment on above: Performed By: #### C MP ####[facility] [address]nuqtsuz[address] [place] [address]Dr. Farhat Leal Globulin (S) [Mass/Vol] 3.6 g/dL Normal [facility] Comment on above: Performed By: #### C MP ####[facility] Hmlwhitxhx[address] [place] [address]Dr. Farhat Leal Glucose [Mass/Vol] 312 mg/dL Critically high 74-106 [facility] Comment on above: Performed By: #### C MP ####[facility] Qqivfmicir[address] [place] [address]Dr. Farhat Leal Potassium [Moles/Vol] 4.2 mmol/L Normal 3.5-5.1 [facility] Comment on above: Performed By: #### C MP ####[facility] Rhfwyokcev[address] [place], [place] [address]Dr. Farhat Leal Protein [Mass/Vol] 6.4 g/dL Normal 6.4-8.2 [facility] Comment on above: Performed By: #### C MP ####[facility] Hlkqbrazdd[address] [place], [place] [address]Dr. Farhat Leal Sodium [Moles/Vol] 142 mmol/L Normal 136-145 [facility] Comment on above: Performed By: #### C MP ####[facility] Tfxhkwnbkb[address] [place], [place] [address]Dr. Farhat Leal Urea nitrogen [Mass/Vol] 49.0 mg/dL Critically high 7.0-18.0 [facility] Comment on above: Performed By: #### C MP ####[facility] Vyqfzanhiv[address] [place], [place] [address]Dr. Farhat Leal Urea nitrogen/Creatinine [Mass ratio] 28.8 mg/mg Normal [facility] Comment on above: Performed By: #### C MP ####[facility] Oohsnbgiqj[address] [place], [place] [address]Dr. Farhat Leal PROTIMEon 07-03-2022 INR Coag (PPP) [Relative time] 2.23 {INR} Normal [facility] Comment on above: Performed By: #### P T ####[facility] Xrgdbeqbcc[address] [place], [place] [address]Dr. Farhat Leal INR GUIDELINES SEE BELOW Normal [facility] Comment on above: Result Comment: MALINA RED INR: 2.0 - 3.0 CONDITIONS NOT LISTED BELOW 2.5 - 3.5 FOR PROSTHETIC HEART VALVE REPLACEMENT 2.5 - 3.5 RECURRENT THROMBOSIS Performed By: #### P T ####[facility] Hljothbhaw[address] [place], [place] [address]Dr. Farhat Leal PT Coag (PPP) [Time] 22.6 s Critically high 9.0-11.6 [facility] Comment on above: Performed By: #### P T ####[facility] Dvynwpkkvc8[address] [place], [place] [address]Dr. Farhat Leal FK506 (TACROLIMUS) WHOLE BLO ODon 06-29-2022 Tacrolimus (FK506), Blood 12.2 ng/mL Normal 2.0-20.0 [facility] Comment on above: Result Comment: Trou gh (immediately following transplant) 15.0 . Trough (steady state, 2 weeks or more after transplant): 3.0 - 8.0 . Performed by LC-MS/MS technology. Performed By: #### F K506T ####[facility] Xufssgfzko[address] [place], [place] [address]Dr. Farhat Leal CBC AUTO DIFFon 06-26-2022 BASO # 0.0 103/ul Normal 0.0-0.1 [facility] Comment on above: Performed By: #### C BC ####[facility] Ysozrywlzv[address] [place], [place] [address]Dr. Farhat Leal Basophils/100 WBC (Bld) 0.5 % Normal 0.2-2.0 [facility] Comment on above: Performed By: #### C BC ####[facility] [address]qa[address] [place] [address]Dr. Farhat Leal EO # 0.3 103/ul Normal 0.0-0.7 [facility] Comment on above: Performed By: #### C BC ####[facility] [address]qakwwf[address] [place] [address]Dr. Farhat Leal Eosinophils/100 WBC (Bld) 4.3 % Normal 0.9-7.0 [facility] Comment on above: Performed By: #### C BC ####[facility] Gdjizbuebo[address] [place], [place] [address]Dr. Farhat Leal Erythrocyte distribution width (RBC) [Ratio] 14.1 % Normal 11.0-15.0 [facility] Comment on above: Performed By: #### C BC ####[facility] Gtjmkuwmpx[address] [place], [place] [address]Dr. Farhat Leal Hematocrit (Bld) [Volume fraction] 35.4 % Critically low 42.0-54.0 [facility] Comment on above: Performed By: #### C BC ####[facility] Sljttiyrcc[address] [place], [place] [address]Dr. Farhat Leal Hemoglobin (Bld) [Mass/Vol] 11.8 g/dL Critically low 14.0-18.0 [facility] Comment on above: Performed By: #### C BC ####[facility] Hluzkxumwe[address] [place], [place] [address]Dr. Farhat Leal IG # 0.02 10e3/ul Normal 0.00-0.03 [facility] Comment on above: Performed By: #### C BC ####[facility] [address]qwvvonr[address] [place] [address]Dr. Farhat Leal IG % 0.3 % Normal 0.0-0.5 [facility] Comment on above: Performed By: #### C BC ####[facility] Hwpeozwhoh[address] [place], [place] [address]Dr. Farhat Leal LYMPH # 2.4 103/ul Normal 1.2-3.8 [facility] Comment on above: Performed By: #### C BC ####[facility] [address]wkbr[address] [place] [id number]. Farhat Elvis Lymphocytes/100 WBC (Bld) 40.4 % Normal 20.5-60.0 [facility] Comment on above: Performed By: #### C BC ####[facility] [address] [place] [id number]. Farhat Elvis MANUAL DIFF REQ NO Normal [facility] Comment on above: Performed By: #### C BC ####[facility] Utdcthzwyj24[address] [place] [phone]. Farhat Elvis MCH (RBC) [Entitic mass] 31.0 pg Normal 25.9-34.0 [facility] Comment on above: Performed By: #### C BC ####[facility] Phjlkzksxh[address] [place] [address]Dr. Farhat Elvis MCHC (RBC) [Mass/Vol] 33.3 g/dL Normal 29.9-35.2 [facility] Comment on above: Performed By: #### C BC ####[facility] [address]kgplxhw[address] [place] [address]Dr. Madelynlorri Leal MCV (RBC) [Entitic vol] 92.9 fL Normal 80.0-94.0 [facility] Comment on above: Performed By: #### C BC ####[facility] Cwrrobmdev[address] [place] [address]Dr. Farhat Leal MONO # 0.7 103/ul Normal 0.3-0.8 [facility] Comment on above: Performed By: #### C BC ####[facility] Wztqqoychc[address] [place] [address]Dr. Madelynlorri Leal Monocytes/100 WBC (Bld) 11.1 % Normal 1.7-12.0 [facility] Comment on above: Performed By: #### C BC ####[facility] Adpwpxqdiz[address] [place], [place] [address]Dr. Farhat Leal NEUT # 2.6 103/ul Normal 1.4-6.5 [facility] Comment on above: Performed By: #### C BC ####[facility] S[address]qttrkx[address] [place] [address]Dr. Farhat Leal Neutrophils/100 WBC (Bld) 43.4 % Normal 43.0-75.0 [facility] Comment on above: Performed By: #### C BC ####[facility] Kzatolvraz[address] [place] [address]Dr. Farhat Leal Platelet mean volume (Bld) [Entitic vol] 10.4 fL Normal 9.5-13.5 [facility] Comment on above: Performed By: #### C BC ####[facility] Gunrhukihj[address] [place] [phone]. Farhat Leal PLT 211 103/ul Normal 150-450 [facility] Comment on above: Performed By: #### C BC ####[facility] Ufkqgzxvyf75[address] [place] [address]Dr. Farhat Leal RBC 3.81 106/ul Critically low 4.70-6.10 [facility] Comment on above: Performed By: #### C BC ####[facility] Ocukxqolyd[address] [place] [address]Dr. Madelynlorri Leal WBC 6.0 103/ul Normal 4.0-11.0 [facility] Comment on above: Performed By: #### C BC ####[facility] L[address]ertvuscf[address] [place], [place] [address]Dr. Farhat Leal PROF 14(COMP METB)on 023 Albumin [Mass/Vol] 2.6 g/dL Critically low 3.4-5.0 [facility] Comment on above: Performed By: #### C MP ####[facility] C[address]utkfkh[address] [place] [phone]. Farhat Leal Albumin/Globulin [Mass ratio] 0.8 {ratio} Normal [facility] Comment on above: Performed By: #### C MP ####[facility] Qqwsjnmnkh8187 [place] [address]Dr. Farhat Elvis ALP [Catalytic activity/Vol] 64 U/L Normal 46-116 [facility] Comment on above: Performed By: #### C MP ####[facility] Fcijbwxntg9[address] [place] [address]Dr. Farhat Leal ALT [Catalytic activity/Vol] 18 U/L Normal 16-63 [facility] Comment on above: Performed By: #### C MP ####[facility] Fpqjtkdxtq69[address] [place] [address]Dr. Farhat Leal Anion gap [Moles/Vol] 10.2 mmol/L Normal [facility] Comment on above: Performed By: #### C MP ####[facility] Qmioxweerg[address] [place], [place] [address]Dr. Farhat Leal AST [Catalytic activity/Vol] 16 U/L Normal 15-37 [facility] Comment on above: Performed By: #### C MP ####[facility] Zwjbnuuvla[address] [place], [place] [address]Dr. Farhat Leal Bilirubin [Mass/Vol] 0.6 mg/dL Normal 0.2-1.0 [facility] Comment on above: Performed By: #### C MP ####[facility] Ciiyhdnyaf8[address] [place], [place] [address]Dr. Farhat Leal Calcium [Mass/Vol] 8.5 mg/dL Normal 8.5-10.1 [facility] Comment on above: Performed By: #### C MP ####[facility] Amjojswxok[address] [place], [place] [address]Dr. Farhat Elal Chloride [Moles/Vol] 106 mmol/L Normal 98-107 [facility] Comment on above: Performed By: #### C MP ####[facility] Spbreqbfke[address] [place], [place] [address]Dr. Farhat Leal CO2 [Moles/Vol] 29.8 mmol/L Normal 21.0-32.0 [facility] Comment on above: Performed By: #### C MP ####[facility] Qyoewjpsvo[address] [place], [place] [address]Dr. Farhat Leal Creatinine [Mass/Vol] 1.60 mg/dL Critically high 0.70-1.30 [facility] Comment on above: Performed By: #### C MP ####[facility] Fwcekjbxpn[address] [place] [address]Dr. Farhat Leal EGFR-AF ETHIOPIAN 51 mL/min/1.73m2 Critically low >=60 [facility] Comment on above: Performed By: #### C MP ####[facility] Ofasysnylk[address] [place] [address]Dr. Farhat Leal EGFR-NON AF ETHIOPIAN 42 mL/min/1.73m2 Critically low >=60 [facility] Comment on above: Performed By: #### C MP ####[facility] Oajacdisfc[address] [place] [address]Dr. Farhat Leal Globulin (S) [Mass/Vol] 3.4 g/dL Normal [facility] Comment on above: Performed By: #### C MP ####[facility] Buzuijmvft[address] [place], [place] [address]Dr. Farhat Leal Glucose [Mass/Vol] 178 mg/dL Critically high 74-106 [facility] Comment on above: Performed By: #### C MP ####[facility] Paoyvqhbaj[address] [place], [place] [address]Dr. Farhat Leal Potassium [Moles/Vol] 4.0 mmol/L Normal 3.5-5.1 [facility] Comment on above: Performed By: #### C MP ####[facility] Cvrvbemimm[address] [place], [place] [address]Dr. Farhat Leal Protein [Mass/Vol] 6.0 g/dL Critically low 6.4-8.2 [facility] Comment on above: Performed By: #### C MP ####[facility] Igzfcsrqyw1687 [place] [address]Dr. Farhat Leal Sodium [Moles/Vol] 142 mmol/L Normal 136-145 [facility] Comment on above: Performed By: #### C MP ####[facility] Puuwqhqyah[address] [place], [place] [address]Dr. Farhat Leal Urea nitrogen [Mass/Vol] 49.0 mg/dL Critically high 7.0-18.0 [facility] Comment on above: Performed By: #### C MP ####[facility] B[address]muozqj[address] [place], [place] [address]Dr. Farhat Leal Urea nitrogen/Creatinine [Mass ratio] 30.6 mg/mg Normal [facility] Comment on above: Performed By: #### C MP ####[facility] Sygzrngpay[address] [place], [place] [address]Dr. Farhat Elvis PROTIMEon 06-26-2022 INR Coag (PPP) [Relative time] 1.77 {INR} Normal [facility] Comment on above: Performed By: #### P T ####[facility] Lyxkrqxvpj[address] [place], [place] [address]Dr. Farhat Leal INR GUIDELINES SEE BELOW Normal [facility] Comment on above: Result Comment: MALINA RED INR: 2.0 - 3.0 CONDITIONS NOT LISTED BELOW 2.5 - 3.5 FOR PROSTHETIC HEART VALVE REPLACEMENT 2.5 - 3.5 RECURRENT THROMBOSIS Performed By: #### P T ####[facility] Twhaxhkyyt[address] [place], [place] [address]Dr. Farhat Leal PT Coag (PPP) [Time] 18.2 s Critically high 9.0-11.6 [facility] Comment on above: Performed By: #### P T ####[facility] [address] [place] [address]. Farhat Leal FK506 (TACROLIMUS) WHOLE BLO ODon 06-22-2022 Tacrolimus (FK506), Blood 24.5 ng/mL Invalid Interpretation Code 2.0-20.0 [facility] Comment on above: Result Comment: Trou gh (immediately following transplant) 15.0 . Trough (steady state, 2 weeks or more after transplant): 3.0 - 8.0 . Performed by LC-MS/MS technology.Patient drug level exceeds published reference range. Evaluateclinically for signs of potential toxicity. Performed By: #### F K506T ####[facility] Ourcccywnz[address] [place], [place] [address]Dr. Farhat Leal CBC AUTO DIFFon 06-19-2022 BASO # 0.1 103/ul Normal 0.0-0.1 [facility] Comment on above: Performed By: #### C BC ####[facility] Kpxjrmyatr[address] [place] [id number]. Farhat Leal Basophils/100 WBC (Bld) 0.7 % Normal 0.2-2.0 [facility] Comment on above: Performed By: #### C BC ####[facility] Ujbvxqnfui023[address] [place] [id number]. Farhat Leal EO # 0.4 103/ul Normal 0.0-0.7 [facility] Comment on above: Performed By: #### C BC ####[facility] Fdcupimmmo[address] [place], [place] [address]Dr. Farhat Leal Eosinophils/100 WBC (Bld) 5.7 % Normal 0.9-7.0 [facility] Comment on above: Performed By: #### C BC ####[facility] Ixykqmqrms[address] [place], [place] [address]Dr. Farhat Leal Erythrocyte distribution width (RBC) [Ratio] 14.5 % Normal 11.0-15.0 [facility] Comment on above: Performed By: #### C BC ####[facility] Txtopbvvot[address] [place], [place] [address]Dr. Farhat Leal Hematocrit (Bld) [Volume fraction] 34.1 % Critically low 42.0-54.0 [facility] Comment on above: Performed By: #### C BC ####[facility] Eqvrugdhvc[address] [place], [place] [id number]. Farhat Leal Hemoglobin (Bld) [Mass/Vol] 11.3 g/dL Critically low 14.0-18.0 [facility] Comment on above: Performed By: #### C BC ####[facility] Iipapimdai[address] [place], [place] [address]Dr. Farhat Leal IG # 0.02 10e3/ul Normal 0.00-0.03 [facility] Comment on above: Performed By: #### C BC ####[facility] Weyaxyybwb[address] [place], [place] [address]Dr. Farhat Leal IG % 0.3 % Normal 0.0-0.5 [facility] Comment on above: Performed By: #### C BC ####[facility] Dodxwaxbww[address] [place] [id number]. Farhat Leal LYMPH # 3.1 103/ul Normal 1.2-3.8 [facility] Comment on above: Performed By: #### C BC ####[facility] Qhphetoony2[address] [place] [phone]. Farhat Leal Lymphocytes/100 WBC (Bld) 40.6 % Normal 20.5-60.0 [facility] Comment on above: Performed By: #### C BC ####[facility] Nhiwdhfilu[address] [place] [phone]. Farhat Elvis MANUAL DIFF REQ NO Normal [facility] Comment on above: Performed By: #### C BC ####[facility] Upyjdrzbfg[address] [place] [phone]. Farhat Elvis MCH (RBC) [Entitic mass] 30.6 pg Normal 25.9-34.0 [facility] Comment on above: Performed By: #### C BC ####[facility] Azjaybzfoy[address] [place] [phone]. Farhat Leal MCHC (RBC) [Mass/Vol] 33.1 g/dL Normal 29.9-35.2 [facility] Comment on above: Performed By: #### C BC ####[facility] Elsjuvgcbd60[address] [place] [phone]. Farhat Elvis MCV (RBC) [Entitic vol] 92.4 fL Normal 80.0-94.0 [facility] Comment on above: Performed By: #### C BC ####[facility] Rfqmhbrwzs35[address] [place] [phone]. Farhat Elvis MONO # 0.8 103/ul Normal 0.3-0.8 [facility] Comment on above: Performed By: #### C BC ####[facility] Oabdbhktfc[address] [place] [phone]. Farhat Elvis Monocytes/100 WBC (Bld) 10.6 % Normal 1.7-12.0 [facility] Comment on above: Performed By: #### C BC ####[facility] Lgepgdflof[address] [place] [phone]. Farhat Leal NEUT # 3.2 103/ul Normal 1.4-6.5 [facility] Comment on above: Performed By: #### C BC ####[facility] Orbeahmqzg1396 [place] [id number]. Farhat Leal Neutrophils/100 WBC (Bld) 42.1 % Critically low 43.0-75.0 [facility] Comment on above: Performed By: #### C BC ####[facility] Wzuy[address]awwl65[address] [place] [id number]. Farhat Leal Platelet mean volume (Bld) [Entitic vol] 10.6 fL Normal 9.5-13.5 [facility] Comment on above: Performed By: #### C BC ####[facility] Ixvajfcrhd6[address] [place] [phone]. Madelynlorri Elvis PLT 187 103/ul Normal 150-450 [facility] Comment on above: Performed By: #### C BC ####[facility] Ilgxulxlth6[address] [place] [phone]. Farhat Elvis RBC 3.69 106/ul Critically low 4.70-6.10 [facility] Comment on above: Performed By: #### C BC ####[facility] Azdwzvzhda70[address] [place] [phone]. Farhat Leal WBC 7.7 103/ul Normal 4.0-11.0 [facility] Comment on above: Performed By: #### C BC ####[facility] [address]ftbhuey[address] [place] [address]Dr. Farhat Leal PROF 14(COMP METB)on 023 Albumin [Mass/Vol] 2.5 g/dL Critically low 3.4-5.0 [facility] Comment on above: Performed By: #### C MP ####[facility] Thqduzudvf77[address] [place] [phone]. Farhat Leal Albumin/Globulin [Mass ratio] 0.8 {ratio} Normal [facility] Comment on above: Performed By: #### C MP ####[facility] Mwzcjxihtf3086 [place] [phone]. Farhat Leal ALP [Catalytic activity/Vol] 60 U/L Normal 46-116 [facility] Comment on above: Performed By: #### C MP ####[facility] Bjjmiifery[address] [place] [address]Dr. Farhat Leal ALT [Catalytic activity/Vol] 16 U/L Normal 16-63 [facility] Comment on above: Performed By: #### C MP ####[facility] Nachpwvrwv20[address] [place] [address]Dr. Farhat Leal Anion gap [Moles/Vol] 9.1 mmol/L Normal [facility] Comment on above: Performed By: #### C MP ####[facility] Mtiiqxctcz9183 [place] [address]Dr. Farhat Leal AST [Catalytic activity/Vol] 31 U/L Normal 15-37 [facility] Comment on above: Performed By: #### C MP ####[facility] Imxyexophb[address] [place], [place] [address]Dr. Farhat Leal Bilirubin [Mass/Vol] 0.3 mg/dL Normal 0.2-1.0 [facility] Comment on above: Performed By: #### C MP ####[facility] Bspjvgtsmm[address] [place], [place] [address]Dr. Farhat Leal Calcium [Mass/Vol] 8.2 mg/dL Critically low 8.5-10.1 [facility] Comment on above: Performed By: #### C MP ####[facility] Doppmybkoh[address] [place] [address]Dr. Farhat Leal Chloride [Moles/Vol] 106 mmol/L Normal 98-107 [facility] Comment on above: Performed By: #### C MP ####[facility] Huddnohfiw[address] [place], [place] [address]Dr. Farhat Leal CO2 [Moles/Vol] 27.0 mmol/L Normal 21.0-32.0 [facility] Comment on above: Performed By: #### C MP ####[facility] Rwkmhywtdu8343 [place] [address]Dr. Farhat Leal Creatinine [Mass/Vol] 1.51 mg/dL Critically high 0.70-1.30 [facility] Comment on above: Performed By: #### C MP ####[facility] Msklirjukb20[address] [place] [address]Dr. Farhat Leal EGFR-AF ETHIOPIAN 55 mL/min/1.73m2 Critically low >=60 [facility] Comment on above: Performed By: #### C MP ####[facility] Ijxkretsuy022[address] [place] [address]Dr. Farhat Leal EGFR-NON AF ETHIOPIAN 45 mL/min/1.73m2 Critically low >=60 [facility] Comment on above: Performed By: #### C MP ####[facility] Oiwvrfbbdy[address] [place], [place] [address]Dr. Farhat Leal Globulin (S) [Mass/Vol] 3.2 g/dL Normal [facility] Comment on above: Performed By: #### C MP ####[facility] Uedtkdbibz[address] [place], [place] [address]Dr. Farhat Leal Glucose [Mass/Vol] 165 mg/dL Critically high 74-106 [facility] Comment on above: Performed By: #### C MP ####[facility] Xjevgnesem23[address] [place] [address]Dr. Farhat Leal Potassium [Moles/Vol] 4.1 mmol/L Normal 3.5-5.1 [facility] Comment on above: Performed By: #### C MP ####[facility] Uwvnfiwubj8455 [place] [address]Dr. Farhat Leal Protein [Mass/Vol] 5.7 g/dL Critically low 6.4-8.2 Th [facility] Comment on above: Performed By: #### C MP ####[facility] Bteoguqodz[address] [place], [place] [address]Dr. Farhat Leal Sodium [Moles/Vol] 138 mmol/L Normal 136-145 [facility] Comment on above: Performed By: #### C MP ####[facility] Fuxsoiwpjd6[address] [place], [place] [address]Dr. Farhat Leal Urea nitrogen [Mass/Vol] 51.0 mg/dL Critically high 7.0-18.0 [facility] Comment on above: Performed By: #### C MP ####[facility] Whcdcwdrqf[address] [place], [place] [address]Dr. Farhat Leal Urea nitrogen/Creatinine [Mass ratio] 33.8 mg/mg Normal [facility] Comment on above: Performed By: #### C MP ####[facility] Dfzjizatkl[address] [place], [place] [address]Dr. Farhat Leal FK506 (TACROLIMUS) WHOLE BLO ODon 06-15-2022 Tacrolimus (FK506), Blood 16.4 ng/mL Normal 2.0-20.0 [facility] Comment on above: Result Comment: Trou gh (immediately following transplant) 15.0 . Trough (steady state, 2 weeks or more after transplant): 3.0 - 8.0 . Performed by LC-MS/MS technology. Performed By: #### F K506T ####[facility] Xfixvyrjhq[address] [place], [place] [address]Dr. Farhat Leal PROTIMEon 06-15-2022 INR Coag (PPP) [Relative time] 1.64 {INR} Normal [facility] Comment on above: Performed By: #### P T ####[facility] [address]fjsymovnh[address] [place], [place] [address]DrSkylar Leal INR GUIDELINES SEE BELOW Normal [facility] Comment on above: Result Comment: MALINA RED INR: 2.0 - 3.0 CONDITIONS NOT LISTED BELOW 2.5 - 3.5 FOR PROSTHETIC HEART VALVE REPLACEMENT 2.5 - 3.5 RECURRENT THROMBOSIS Performed By: #### P T ####[facility] Cxkxqndtsi[address] [place], [place] [address]DrSkylar Leal PT Coag (PPP) [Time] 16.9 s Critically high 9.0-11.6 [facility] Comment on above: Performed By: #### P T ####[facility] Oyg[address] [place], [place] [address]DrSkylar Leal CBC AUTO DIFFon 06-12-2022 BASO # 0.0 103/ul Normal 0.0-0.1 [facility] Comment on above: Performed By: #### C BC ####[facility] [address]oeouh[address] [place] [address]Dr. Farhat Leal Basophils/100 WBC (Bld) 0.4 % Normal 0.2-2.0 [facility] Comment on above: Performed By: #### C BC ####[facility] Wwbuygpegk[address] [place], [place] [address]Dr. Farhat Leal EO # 0.4 103/ul Normal 0.0-0.7 [facility] Comment on above: Performed By: #### C BC ####[facility] Rzoiqvewdf[address] [place], [place] [address]Dr. Farhat Leal Eosinophils/100 WBC (Bld) 5.4 % Normal 0.9-7.0 [facility] Comment on above: Performed By: #### C BC ####[facility] Xdguvtjiqz5[address] [place], [place] [address]Dr. Farhat Leal Erythrocyte distribution width (RBC) [Ratio] 14.7 % Normal 11.0-15.0 [facility] Comment on above: Performed By: #### C BC ####[facility] Crikzfhbgv[address] [place], [place] [address]Dr. Farhat Leal Hematocrit (Bld) [Volume fraction] 34.8 % Critically low 42.0-54.0 [facility] Comment on above: Performed By: #### C BC ####[facility] Msausziuqo[address] [place], [place] [address]Dr. Farhat Leal Hemoglobin (Bld) [Mass/Vol] 11.7 g/dL Critically low 14.0-18.0 [facility] Comment on above: Performed By: #### C BC ####[facility] Wkgsunduqs[address] [place], [place] [address]Dr. Farhat Leal IG # 0.02 10e3/ul Normal 0.00-0.03 [facility] Comment on above: Performed By: #### C BC ####[facility] Bjdwsppmpb[address] [place], [place] [address]Dr. Farhat Leal IG % 0.3 % Normal 0.0-0.5 [facility] Comment on above: Performed By: #### C BC ####[facility] Fzeulxqqun[address] [place] [address]DrSkylar Leal LYMPH # 2.5 103/ul Normal 1.2-3.8 [facility] Comment on above: Performed By: #### C BC ####[facility] Uxusptpoiq[address] [place] [address]Dr. Farhat Leal Lymphocytes/100 WBC (Bld) 36.8 % Normal 20.5-60.0 [facility] Comment on above: Performed By: #### C BC ####[facility] Uwfcgnzvtx[address] [place], [place] [address]DrSkylar Leal MANUAL DIFF REQ NO Normal [place] Comment on above: Performed By: #### C BC ####[facility] Ymhzhqadzy[address] [place] [address]Dr. Farhat Leal MCH (RBC) [Entitic mass] 30.9 pg Normal 25.9-34.0 [facility] Comment on above: Performed By: #### C BC ####[facility] Meklamxxdu[address] [place], [place] [address]Dr. Madelynlorri Leal MCHC (RBC) [Mass/Vol] 33.6 g/dL Normal 29.9-35.2 [facility] Comment on above: Performed By: #### C BC ####[facility] Ckfkzvrmsh[address] [place], [place] [address]DrSkylar Leal MCV (RBC) [Entitic vol] 91.8 fL Normal 80.0-94.0 [facility] Comment on above: Performed By: #### C BC ####[facility] Xoiafjosyc[address] [place], [place] [address]DrSkylar Leal MONO # 0.8 103/ul Normal 0.3-0.8 [facility] Comment on above: Performed By: #### C BC ####[facility] Izmjntlzai[address] [place], [place] [address]DrSkylar Leal Monocytes/100 WBC (Bld) 11.9 % Normal 1.7-12.0 [facility] Comment on above: Performed By: #### C BC ####[facility] Mzmzpjkcse[address] [place] [address]DrSkylar Farhat Leal NEUT # 3.1 103/ul Normal 1.4-6.5 [facility] Comment on above: Performed By: #### C BC ####[facility] Dmlecnwmxw04[address] [place] [address]DrSkylar Farhat Leal Neutrophils/100 WBC (Bld) 45.2 % Normal 43.0-75.0 [facility] Comment on above: Performed By: #### C BC ####[facility] Mwjjbrrjjc[address] [place], [place] [address]DrSkylar Farhat Leal Platelet mean volume (Bld) [Entitic vol] 10.5 fL Normal 9.5-13.5 [facility] Comment on above: Performed By: #### C BC ####[facility] Ktbrgvmfja[address] [place], [place] [address]Dr. Farhat Leal PLT 175 103/ul Normal 150-450 [facility] Comment on above: Performed By: #### C BC ####[facility] [address]ilxkmyuwm[address] [place], [place] [address]DrSkylar Farhat Leal RBC 3.79 106/ul Critically low 4.70-6.10 [facility] Comment on above: Performed By: #### C BC ####[facility] Uxnrplwyyx[address] [place], [place] [id number] Farhat Leal WBC 6.8 103/ul Normal 4.0-11.0 [facility] Comment on above: Performed By: #### C BC ####[facility] [address]aiqjrxtf[address] [place], [place] [address]DrSkylar Farhat Leal MAGNESIUMon 06-12-2022 Magnesium [Mass/Vol] 1.6 mg/dL Critically low 1.8-2.4 [facility] Comment on above: Performed By: #### C MP, MG, PHOS ####[facility] Tagbxwbqal40[address] [place], [place] [address]Dr. Farhat Leal PHOSPHORUSon 06-12-2022 Phosphate [Mass/Vol] 3.8 mg/dL Normal 2.6-4.7 [facility] Comment on above: Performed By: #### C MP, MG, PHOS ####[facility] [address]rrfchsf[address] [place] [address]Dr. Farhat Leal PROF 14(COMP METB)on 023 Albumin [Mass/Vol] 2.6 g/dL Critically low 3.4-5.0 [facility] Comment on above: Performed By: #### C MP, MG, PHOS ####[facility] Awijhmrrbf[address] [place] [address]Dr. Farhat Leal Albumin/Globulin [Mass ratio] 0.8 {ratio} Normal [facility] Comment on above: Performed By: #### C MP, MG, PHOS ####[facility] Cjzcszrmcu13[address] [place] [address]Dr. Farhat Leal ALP [Catalytic activity/Vol] 64 U/L Normal 46-116 [facility] Comment on above: Performed By: #### C MP, MG, PHOS ####[facility] Mndqhpwujk60[address] [place] [address]Dr. Farhat Leal ALT [Catalytic activity/Vol] 18 U/L Normal 16-63 [facility] Comment on above: Performed By: #### C MP, MG, PHOS ####[facility] Hmelzurssh37[address] [place] [address]Dr. Farhat Leal Anion gap [Moles/Vol] 12.9 mmol/L Normal [facility] Comment on above: Performed By: #### C MP, MG, PHOS ####[facility] Faanochwse35[address] [place] [address]Dr. Farhat Leal AST [Catalytic activity/Vol] 18 U/L Normal 15-37 [facility] Comment on above: Performed By: #### C MP, MG, PHOS ####[facility] Imafefvpkm[address] [place] [address]Dr. Farhat Leal Bilirubin [Mass/Vol] 0.4 mg/dL Normal 0.2-1.0 [facility] Comment on above: Performed By: #### C MP, MG, PHOS ####[facility] Oajyesfcwh1906 [place] [address]Dr. Farhat Leal Calcium [Mass/Vol] 8.7 mg/dL Normal 8.5-10.1 [facility] Comment on above: Performed By: #### C MP, MG, PHOS ####[facility] Udnoubetcl[address] [place], [place] [address]Dr. Farhat Leal Chloride [Moles/Vol] 105 mmol/L Normal 98-107 [facility] Comment on above: Performed By: #### C MP, MG, PHOS ####[facility] Nvnvmzjbof[address] [place], [place] [address]Dr. Farhat Leal CO2 [Moles/Vol] 27.9 mmol/L Normal 21.0-32.0 The [facility] Comment on above: Performed By: #### C MP, MG, PHOS ####[facility] Mqpdtwoona[address] [place], [place] [address]Dr. Farhat Leal Creatinine [Mass/Vol] 1.53 mg/dL Critically high 0.70-1.30 [facility] Comment on above: Performed By: #### C MP, MG, PHOS ####[facility] Jjbswxhxql[address] [place], [place] [address]Dr. Farhat Leal EGFR-AF ETHIOPIAN 54 mL/min/1.73m2 Critically low >=60 [facility] Comment on above: Performed By: #### C MP, MG, PHOS ####[facility] Gywynowarw[address] [place], [place] [address]Dr. Farhat Leal EGFR-NON AF ETHIOPIAN 44 mL/min/1.73m2 Critically low >=60 [facility] Comment on above: Performed By: #### C MP, MG, PHOS ####[facility] Jnvwpvefhw9502 [place] [address]Dr. Farhat Leal Globulin (S) [Mass/Vol] 3.4 g/dL Normal [facility] Comment on above: Performed By: #### C MP, MG, PHOS ####[facility] Qscsfoitwi9975 [place] [address]Dr. Farhat Leal Glucose [Mass/Vol] 179 mg/dL Critically high 74-106 T [facility] Comment on above: Performed By: #### C MP, MG, PHOS ####[facility] [address] [place] [address]Dr. Farhat Leal Potassium [Moles/Vol] 3.8 mmol/L Normal 3.5-5.1 [facility] Comment on above: Performed By: #### C MP, MG, PHOS ####[facility] Jvlrdgxnfb4[address] [place] [address]Dr. Farhat Leal Protein [Mass/Vol] 6.0 g/dL Critically low 6.4-8.2 Th [facility] Comment on above: Performed By: #### C MP, MG, PHOS ####[facility] Fchfbcdayy[address] [place] [address]Dr. Farhat Leal Sodium [Moles/Vol] 142 mmol/L Normal 136-145 [facility] Comment on above: Performed By: #### C MP, MG, PHOS ####[facility] Ursljtdrwf7363 [place] [address]Dr. Farhat Leal Urea nitrogen [Mass/Vol] 56.0 mg/dL Critically high 7.0-18.0 [facility] Comment on above: Performed By: #### C MP, MG, PHOS ####[facility] Ycwjpkzejp57[address] [place] [address]Dr. Farhat Leal Urea nitrogen/Creatinine [Mass ratio] 36.6 mg/mg Normal [facility] Comment on above: Performed By: #### C MP, MG, PHOS ####[facility] Pojjtzoujg[address] [place] [address]Dr. Farhat Elvis FK506 (TACROLIMUS) WHOLE BLO ODon 06-08-2022 Tacrolimus (FK506), Blood 13.2 ng/mL Normal 2.0-20.0 [facility] Comment on above: Result Comment: Trou gh (immediately following transplant) 15.0 . Trough (steady state, 2 weeks or more after transplant): 3.0 - 8.0 . Performed by LC-MS/MS technology. Performed By: #### F K506T ####[facility] Fjpzlsfqrq[address] [place], [place] [address]Dr. Farhat Leal CBC AUTO DIFFon 06-05-2022 BASO # 0.1 103/ul Normal 0.0-0.1 [facility] Comment on above: Performed By: #### C BC ####[facility] Psywvpzmbd[address] [place], [place] [address]Dr. Farhat Leal Basophils/100 WBC (Bld) 0.8 % Normal 0.2-2.0 [facility] Comment on above: Performed By: #### C BC ####[facility] Ojsmpstois[address] [place], [place] [address]Dr. Farhat Leal EO # 0.3 103/ul Normal 0.0-0.7 [facility] Comment on above: Performed By: #### C BC ####[facility] Cyxgxlidmx[address] [place], [place] [address]Dr. Madelynlorri Leal Eosinophils/100 WBC (Bld) 4.7 % Normal 0.9-7.0 [facility] Comment on above: Performed By: #### C BC ####[facility] Juyykwflql[address] [place], [place] [address]Dr. Farhat Leal Erythrocyte distribution width (RBC) [Ratio] 15.1 % Critically high 11.0-15.0 [facility] Comment on above: Performed By: #### C BC ####[facility] Ujwqfkpiwx[address] [place], [place] [address]Dr. Farhat Leal Hematocrit (Bld) [Volume fraction] 35.5 % Critically low 42.0-54.0 [facility] Comment on above: Performed By: #### C BC ####[facility] Fraetymqfz[address] [place], [place] [address]Dr. Farhat Leal Hemoglobin (Bld) [Mass/Vol] 11.7 g/dL Critically low 14.0-18.0 [facility] Comment on above: Performed By: #### C BC ####[facility] I[address]azwxcvp[address] [place] [id number]. Madelynlorir Leal IG # 0.01 10e3/ul Normal 0.00-0.03 [facility] Comment on above: Performed By: #### C BC ####[facility] Djijutriaq30[address] [place] [address]Dr. Madelynlorri Elvis IG % 0.2 % Normal 0.0-0.5 [facility] Comment on above: Performed By: #### C BC ####[facility] Bjxoifjzbz05[address] [place] [address]Dr. Madelynlorri Elvis LYMPH # 2.1 103/ul Normal 1.2-3.8 [facility] Comment on above: Performed By: #### C BC ####[facility] Ftztdbejcx3385 [place] [address]Dr. Farhat Leal Lymphocytes/100 WBC (Bld) 34.5 % Normal 20.5-60.0 [facility] Comment on above: Performed By: #### C BC ####[facility] Kmdnylvyqr4[address] [place] [address]Dr. Farhat Leal MANUAL DIFF REQ NO Normal [facility] Comment on above: Performed By: #### C BC ####[facility] Enrvmthlma[address] [place] [address]Dr. Farhat Elvis MCH (RBC) [Entitic mass] 30.6 pg Normal 25.9-34.0 [facility] Comment on above: Performed By: #### C BC ####[facility] Gpwyuopocg[address] [place] [address]Dr. Farhat Elvis MCHC (RBC) [Mass/Vol] 33.0 g/dL Normal 29.9-35.2 [facility] Comment on above: Performed By: #### C BC ####[facility] Bjfleqzhdk2492 [place] [address]Dr. Farhat Elvis MCV (RBC) [Entitic vol] 92.9 fL Normal 80.0-94.0 [facility] Comment on above: Performed By: #### C BC ####[facility] Nuwjhornwv85[address] [place] [id number]. Farhat Leal MONO # 0.7 103/ul Normal 0.3-0.8 [facility] Comment on above: Performed By: #### C BC ####[facility] Grzrqjqsep9292 [place] [id number]. Farhat Leal Monocytes/100 WBC (Bld) 11.4 % Normal 1.7-12.0 [facility] Comment on above: Performed By: #### C BC ####[facility] Ydxywerjfd6067 [place] [id number]. Farhat Leal NEUT # 2.9 103/ul Normal 1.4-6.5 [facility] Comment on above: Performed By: #### C BC ####[facility] C[address]zarmyd[address] [place], [place] [address]Dr. Farhat Leal Neutrophils/100 WBC (Bld) 48.4 % Normal 43.0-75.0 [facility] Comment on above: Performed By: #### C BC ####[facility] Rnqmjsmppj[address] [place], [place] [address]Dr. Farhat Leal Platelet mean volume (Bld) [Entitic vol] 10.7 fL Normal 9.5-13.5 [facility] Comment on above: Performed By: #### C BC ####[facility] Idjiyljivd[address] [place], [place] [id number]. Farhat Leal PLT 185 103/ul Normal 150-450 [facility] Comment on above: Performed By: #### C BC ####[facility] Gbvbtvytsf[address] [place], [place] [address]Dr. Farhat Leal RBC 3.82 106/ul Critically low 4.70-6.10 [facility] Comment on above: Performed By: #### C BC ####[facility] Gveinhtdjh[address] [place], [place] [address]Dr. Farhat Leal WBC 6.0 103/ul Normal 4.0-11.0 [facility] Comment on above: Performed By: #### C BC ####[facility] Kxfzrjkpei[address] [place], [place] [address]Dr. Farhat Leal MAGNESIUMon 06-05-2022 Magnesium [Mass/Vol] 1.9 mg/dL Normal 1.8-2.4 [facility] Comment on above: Performed By: #### P HOS, MG ####[facility] Blamyenhpd[address] [place] [address]Dr. Farhat Leal PHOSPHORUSon 06-05-2022 Phosphate [Mass/Vol] 4.4 mg/dL Normal 2.6-4.7 [facility] Comment on above: Performed By: #### P HOS, MG ####[facility] Fyrfkeebqp36[address] [place] [address]Dr. Farhat Leal PROTIMEon 06-05-2022 INR Coag (PPP) [Relative time] 2.16 {INR} Normal [facility] Comment on above: Performed By: #### P T ####[facility] Ejcgjbxhwa[address] [place] [address]Dr. Farhat Leal INR GUIDELINES SEE BELOW Normal The [facility] Comment on above: Result Comment: MALNIA RED INR: 2.0 - 3.0 CONDITIONS NOT LISTED BELOW 2.5 - 3.5 FOR PROSTHETIC HEART VALVE REPLACEMENT 2.5 - 3.5 RECURRENT THROMBOSIS Performed By: #### P T ####[facility] Deagomdbkn[address] [place] [address]Dr. Farhat Leal PT Coag (PPP) [Time] 21.9 s Critically high 9.0-11.6 [facility] Comment on above: Performed By: #### P T ####[facility] Ddhdtcglgz4[address] [place] [address]Dr. Farhat Leal FK506 (TACROLIMUS) WHOLE BLO ODon 06-01-2022 Tacrolimus (FK506), Blood 26.4 ng/mL Invalid Interpretation Code 2.0-20.0 [facility] Comment on above: Result Comment: Trou gh (immediately following transplant) 15.0 . Trough (steady state, 2 weeks or more after transplant): 3.0 - 8.0 . Performed by LC-MS/MS technology.Patient drug level exceeds published reference range. Evaluateclinically for signs of potential toxicity. Performed By: #### F K506T ####[facility] Bwb[address]hjpsz34[address] [place] [id number]. Farhat Leal CBC AUTO DIFFon 05-29-2022 BASO # 0.0 103/ul Normal 0.0-0.1 [facility] Comment on above: Performed By: #### C BC ####[facility] Dadavzbqkl8[address] [place], [place] [address]Dr. Farhat Elvis Basophils/100 WBC (Bld) 0.6 % Normal 0.2-2.0 [facility] Comment on above: Performed By: #### C BC ####[facility] Utkiztnjgu[address] [place], [place] [address]Dr. Farhat Leal EO # 0.3 103/ul Normal 0.0-0.7 [facility] Comment on above: Performed By: #### C BC ####[facility] Xpotlotsct[address] [place], [place] [address]Dr. Madelynlorri Leal Eosinophils/100 WBC (Bld) 4.7 % Normal 0.9-7.0 [facility] Comment on above: Performed By: #### C BC ####[facility] Aqasgoqjrg[address] [place], [place] [address]Dr. Farhat Leal Erythrocyte distribution width (RBC) [Ratio] 15.3 % Critically high 11.0-15.0 [facility] Comment on above: Performed By: #### C BC ####[facility] Giniyshixl[address] [place], [place] [address]Dr. Farhat Leal Hematocrit (Bld) [Volume fraction] 36.6 % Critically low 42.0-54.0 [facility] Comment on above: Performed By: #### C BC ####[facility] Tbotmimpdr[address] [place], [place] [address]Dr. Farhat Leal Hemoglobin (Bld) [Mass/Vol] 12.3 g/dL Critically low 14.0-18.0 [facility] Comment on above: Performed By: #### C BC ####[facility] Dtccfxxmff[address] [place], [place] [address]Dr. Farhat Leal IG # 0.02 10e3/ul Normal 0.00-0.03 [facility] Comment on above: Performed By: #### C BC ####[facility] Knnbirpedp[address] [place] [address]Dr. Madelynlorri Leal IG % 0.3 % Normal 0.0-0.5 [facility] Comment on above: Performed By: #### C BC ####[facility] Dbiladxspy4741 [place] [phone]. Farhat Elvis LYMPH # 2.8 103/ul Normal 1.2-3.8 [facility] Comment on above: Performed By: #### C BC ####[facility] Rlnejrwgol[address] [place], [place] [address]Dr. Madelynlorri Leal Lymphocytes/100 WBC (Bld) 44.4 % Normal 20.5-60.0 [facility] Comment on above: Performed By: #### C BC ####[facility] Bothxfxhut[address] [place], [place] [address]Dr. Farhat Leal MANUAL DIFF REQ NO Normal [place] Comment on above: Performed By: #### C BC ####[facility] Hmlrtrifxo49[address] [place] [address]Dr. Farhat Elvis MCH (RBC) [Entitic mass] 30.4 pg Normal 25.9-34.0 [facility] Comment on above: Performed By: #### C BC ####[facility] Uksvnskgri5799 [place] [address]Dr. Farhat Elvis MCHC (RBC) [Mass/Vol] 33.6 g/dL Normal 29.9-35.2 [facility] Comment on above: Performed By: #### C BC ####[facility] Xsmxgibqpw[address] [place], [place] [address]Dr. Farhat Elvis MCV (RBC) [Entitic vol] 90.4 fL Normal 80.0-94.0 [facility] Comment on above: Performed By: #### C BC ####[facility] Ccqecznraf[address] [place], [place] [address]Dr. Farhat Leal MONO # 0.7 103/ul Normal 0.3-0.8 [facility] Comment on above: Performed By: #### C BC ####[facility] Wqbigbueli3[address] [place] [id number]. Farhat Leal Monocytes/100 WBC (Bld) 10.7 % Normal 1.7-12.0 [facility] Comment on above: Performed By: #### C BC ####[facility] Lrusztjykp4639 [place] [id number]. Farhat Leal NEUT # 2.5 103/ul Normal 1.4-6.5 [facility] Comment on above: Performed By: #### C BC ####[facility] Vtepjjpcmc4013 [place] [id number]. Farhat Leal Neutrophils/100 WBC (Bld) 39.3 % Critically low 43.0-75.0 [facility] Comment on above: Performed By: #### C BC ####[facility] Delgxurrdd[address] [place] [address]Dr. Farhat Leal Platelet mean volume (Bld) [Entitic vol] 10.5 fL Normal 9.5-13.5 [facility] Comment on above: Performed By: #### C BC ####[facility] Rmrfyyizbf7385 [place] [address]Dr. Farhat Leal PLT 190 103/ul Normal 150-450 [facility] Comment on above: Performed By: #### C BC ####[facility] Genlxpskpd1024 [place] [id number]. Farhat Leal RBC 4.05 106/ul Critically low 4.70-6.10 [place] Comment on above: Performed By: #### C BC ####[facility] Eqrbgkyzge0642 [place] [phone]. Farhat Leal WBC 6.4 103/ul Normal 4.0-11.0 [facility] Comment on above: Performed By: #### C BC ####[facility] Lybbixnlkq2474 [place] [address]DrSkylar Leal PROF 14(COMP METB)on 023 Albumin [Mass/Vol] 2.5 g/dL Critically low 3.4-5.0 [facility] Comment on above: Performed By: #### C MP ####[facility] Kkjutzrqqp34[address] [place] [address]Dr. Madelynlorri Elvis Albumin/Globulin [Mass ratio] 0.8 {ratio} Normal [facility] Comment on above: Performed By: #### C MP ####[facility] Yipwcusxbs4[address] [place] [address]Dr. Farhat Leal ALP [Catalytic activity/Vol] 61 U/L Normal 46-116 [facility] Comment on above: Performed By: #### C MP ####[facility] Icfjzbeytv7074 [place] [address]Dr. Farhat Leal ALT [Catalytic activity/Vol] 16 U/L Normal 16-63 [facility] Comment on above: Performed By: #### C MP ####[facility] Jsofrynzww[address] [place], [place] [address]Dr. Farhat Leal Anion gap [Moles/Vol] 12.3 mmol/L Normal [facility] Comment on above: Performed By: #### C MP ####[facility] Khsuahbzgc[address] [place], [place] [address]Dr. Farhat Leal AST [Catalytic activity/Vol] 18 U/L Normal 15-37 [facility] Comment on above: Performed By: #### C MP ####[facility] Rndeunnxvn[address] [place], [place] [address]Dr. Farhat Leal Bilirubin [Mass/Vol] 0.5 mg/dL Normal 0.2-1.0 [facility] Comment on above: Performed By: #### C MP ####[facility] Hhuuqgrkqx[address] [place], [place] [address]Dr. Farhat Leal Calcium [Mass/Vol] 8.6 mg/dL Normal 8.5-10.1 [facility] Comment on above: Performed By: #### C MP ####[facility] [address]wlpdecbna[address] [place], [place] [address]Dr. Farhat Leal Chloride [Moles/Vol] 105 mmol/L Normal 98-107 [facility] Comment on above: Performed By: #### C MP ####[facility] Yeiaezopso[address] [place] [phone]. Farhat Leal CO2 [Moles/Vol] 28.6 mmol/L Normal 21.0-32.0 [facility] Comment on above: Performed By: #### C MP ####[facility] Mfoonuyfdb6582 [place] [phone]. Farhat Leal Creatinine [Mass/Vol] 1.47 mg/dL Critically high 0.70-1.30 [facility] Comment on above: Performed By: #### C MP ####[facility] Ecplqbluap0862 [place] [id number]. Farhat Leal EGFR-AF ETHIOPIAN 56 mL/min/1.73m2 Critically low >=60 [facility] Comment on above: Performed By: #### C MP ####[facility] Pkoglcfjlj[address] [place], [place] [address]Dr. Farhat Elvis EGFR-NON AF ETHIOPIAN 46 mL/min/1.73m2 Critically low >=60 [facility] Comment on above: Performed By: #### C MP ####[facility] [address]ql[address] [place] [address]Dr. Farhat Leal Globulin (S) [Mass/Vol] 3.3 g/dL Normal [facility] Comment on above: Performed By: #### C MP ####[facility] Mxtvtrbdja[address] [place] [address]Dr. Farhat Leal Glucose [Mass/Vol] 164 mg/dL Critically high 74-106 [facility] Comment on above: Performed By: #### C MP ####[facility] Cukzdrmqaa45[address] [place] [id number]. Farhat Leal Potassium [Moles/Vol] 3.9 mmol/L Normal 3.5-5.1 [facility] Comment on above: Performed By: #### C MP ####[facility] Zdxdz[address]vbt[address] [place], [place] [address]Dr. Farhat Leal Protein [Mass/Vol] 5.8 g/dL Critically low 6.4-8.2 Th [facility] Comment on above: Performed By: #### C MP ####[facility] Xrzsuebfou[address] [place] [address]Dr. Farhat eLal Sodium [Moles/Vol] 142 mmol/L Normal 136-145 [facility] Comment on above: Performed By: #### C MP ####[facility] Zaxktbzckm38[address] [place] [address]Dr. Farhat Lael Urea nitrogen [Mass/Vol] 53.0 mg/dL Critically high 7.0-18.0 [facility] Comment on above: Performed By: #### C MP ####[facility] Xgzgfbzfgv[address] [place], [place] [address]Dr. Farhat Leal Urea nitrogen/Creatinine [Mass ratio] 36.1 mg/mg Normal [facility] Comment on above: Performed By: #### C MP ####[facility] Iatumcjxmd[address] [place], [place] [address]Dr. Farhat Leal PROTIMEon 05-29-2022 INR Coag (PPP) [Relative time] 2.41 {INR} Normal [facility] Comment on above: Performed By: #### P T ####[facility] Uddmxbvvcl[address] [place], [place] [address]Dr. Farhat Leal INR GUIDELINES SEE BELOW Normal [facility] Comment on above: Result Comment: MALINA RED INR: 2.0 - 3.0 CONDITIONS NOT LISTED BELOW 2.5 - 3.5 FOR PROSTHETIC HEART VALVE REPLACEMENT 2.5 - 3.5 RECURRENT THROMBOSIS Performed By: #### P T ####[facility] Wfboeqsdyu[address] [place], [place] [address]Dr. Farhat Leal PT Coag (PPP) [Time] 24.3 s Critically high 9.0-11.6 The [facility] Comment on above: Performed By: #### P T ####[facility] Ayzwinoyez[address] [place], [place] [address]Dr. Farhat Leal FK506 (TACROLIMUS) WHOLE BLO ODon 05-25-2022 Tacrolimus (FK506), Blood 5.1 ng/mL Normal 2.0-20.0 [facility] Comment on above: Result Comment: Trou gh (immediately following transplant) 15.0 . Trough (steady state, 2 weeks or more after transplant): 3.0 - 8.0 . Performed by LC-MS/MS technology. Performed By: #### F K506T ####[facility] [address]bmg[address] [place] [address]Dr. Farhat Leal CBC AUTO DIFFon 05-22-2022 BASO # 0.0 103/ul Normal 0.0-0.1 The [facility] Comment on above: Performed By: #### C BC ####[facility] Tteoejstmh[address] [place], [place] [address]Dr. Madelynlorri Leal Basophils/100 WBC (Bld) 0.5 % Normal 0.2-2.0 The [facility] Comment on above: Performed By: #### C BC ####[facility] Ksbwhnbwqx[address] [place], [place] [address]Dr. Farhat Leal EO # 0.2 103/ul Normal 0.0-0.7 The [facility] Comment on above: Performed By: #### C BC ####[facility] Xvsvcpwdmk[address] [place], [place] [address]Dr. Madelynlorri Leal Eosinophils/100 WBC (Bld) 4.0 % Normal 0.9-7.0 The [facility] Comment on above: Performed By: #### C BC ####[facility] Ibqhflqjuz[address] [place], [place] [address]Dr. Farhat Leal Erythrocyte distribution width (RBC) [Ratio] 15.5 % Critically high 11.0-15.0 The [facility] Comment on above: Performed By: #### C BC ####[facility] Qpdnxjalmc[address] [place], [place] [address]Dr. Farhat Leal Hematocrit (Bld) [Volume fraction] 34.1 % Critically low 42.0-54.0 The [facility] Comment on above: Performed By: #### C BC ####[facility] Grtfvpneue[address] [place], [place] [address]Dr. Farhat Leal Hemoglobin (Bld) [Mass/Vol] 11.3 g/dL Critically low 14.0-18.0 The [facility] Comment on above: Performed By: #### C BC ####[facility] H[address]xwzkldbm4[address] [place] [id number]. Farhat Leal IG # 0.03 10e3/ul Normal 0.00-0.03 The [facility] Comment on above: Performed By: #### C BC ####[facility] Eeyfiibwko2202 [place] [phone]. Madelynlorri Leal IG % 0.5 % Normal 0.0-0.5 The [facility] Comment on above: Performed By: #### C BC ####[facility] Finkhjadbn20[address] [place] [address]Dr. Farhat Elvis LYMPH # 2.1 103/ul Normal 1.2-3.8 The [facility] Comment on above: Performed By: #### C BC ####[facility] Gockrbimat[address] [place] [address]Dr. Farhat Leal Lymphocytes/100 WBC (Bld) 34.6 % Normal 20.5-60.0 The [facility] Comment on above: Performed By: #### C BC ####[facility] Pelqojlrly[address] [place], [place] [address]Dr. Madelynlorri Leal MANUAL DIFF REQ NO Normal [place] Comment on above: Performed By: #### C BC ####[facility] Evppnaaoaz4[address] [place] [address]Dr. Farhat Leal MCH (RBC) [Entitic mass] 30.3 pg Normal 25.9-34.0 The [facility] Comment on above: Performed By: #### C BC ####[facility] Ljnywndvfm25[address] [place] [address]Dr. Farhat Leal MCHC (RBC) [Mass/Vol] 33.1 g/dL Normal 29.9-35.2 The [facility] Comment on above: Performed By: #### C BC ####[facility] [address]ncwrzcm[address] [place], [place] [address]Dr. Madelynlorri Leal MCV (RBC) [Entitic vol] 91.4 fL Normal 80.0-94.0 The [facility] Comment on above: Performed By: #### C BC ####[facility] Dtdxvdbxaf5[address] [place] [id number]. Farhat Leal MONO # 0.7 103/ul Normal 0.3-0.8 The [facility] Comment on above: Performed By: #### C BC ####[facility] Upjstdeznq8[address] [place] [phone]. Farhat Leal Monocytes/100 WBC (Bld) 11.6 % Normal 1.7-12.0 The [facility] Comment on above: Performed By: #### C BC ####[facility] Qksztnfydq68[address] [place] [phone]. Farhat Leal NEUT # 2.9 103/ul Normal 1.4-6.5 The [facility] Comment on above: Performed By: #### C BC ####[facility] Jrtmxhapdo00[address] [place] [phone]. Farhat Leal Neutrophils/100 WBC (Bld) 48.8 % Normal 43.0-75.0 The [facility] Comment on above: Performed By: #### C BC ####[facility] Iwvogyrjab7593 [place] [phone]. Farhat Leal Platelet mean volume (Bld) [Entitic vol] 10.9 fL Normal 9.5-13.5 The [facility] Comment on above: Performed By: #### C BC ####[facility] Shtslbwxnm5[address] [place] [phone]. Farhat Leal PLT 186 103/ul Normal 150-450 [facility] Comment on above: Performed By: #### C BC ####[facility] Osgnswznmh0994 [place] [phone]. Farhat Leal RBC 3.73 106/ul Critically low 4.70-6.10 The [facility] Comment on above: Performed By: #### C BC ####[facility] Flumbijqup28[address] [place] [phone]. Farhat Leal WBC 6.0 103/ul Normal 4.0-11.0 The [facility] Comment on above: Performed By: #### C BC ####[facility] Mcohcvvnpv29[address] [place] [phone]. Farhat Leal PROF 14(COMP METB)on 023 Albumin [Mass/Vol] 2.7 g/dL Critically low 3.4-5.0 [facility] Comment on above: Performed By: #### C MP ####[facility] Cvavbkiljv20[address] [place] [address]Dr. Farhat Leal Albumin/Globulin [Mass ratio] 0.8 {ratio} Normal [facility] Comment on above: Performed By: #### C MP ####[facility] Nuchqjplyj750[address] [place] [address]Dr. Farhat Leal ALP [Catalytic activity/Vol] 60 U/L Normal 46-116 [facility] Comment on above: Performed By: #### C MP ####[facility] Bojihcuxkg[address] [place], [place] [address]Dr. Farhat Leal ALT [Catalytic activity/Vol] 17 U/L Normal 16-63 [facility] Comment on above: Performed By: #### C MP ####[facility] Nvvdmuvzon[address] [place], [place] [address]Dr. Farhat Leal Anion gap [Moles/Vol] 9.6 mmol/L Normal [facility] Comment on above: Performed By: #### C MP ####[facility] Jbuysinevh[address] [place], [place] [address]Dr. Farhat Leal AST [Catalytic activity/Vol] 14 U/L Critically low 15-37 [facility] Comment on above: Performed By: #### C MP ####[facility] Aoggptmdnl[address] [place], [place] [address]Dr. Farhat Leal Bilirubin [Mass/Vol] 0.5 mg/dL Normal 0.2-1.0 [facility] Comment on above: Performed By: #### C MP ####[facility] Mljyccnoat[address] [place], [place] [address]Dr. Farhat Leal Calcium [Mass/Vol] 8.4 mg/dL Critically low 8.5-10.1 Th [facility] Comment on above: Performed By: #### C MP ####[facility] Wbemhqvdjy9[address] [place] [address]Dr. Farhat Leal Chloride [Moles/Vol] 104 mmol/L Normal 98-107 [facility] Comment on above: Performed By: #### C MP ####[facility] Bybygzmxjs[address] [place], [place] [address]Dr. Madelynlorri Elvis CO2 [Moles/Vol] 27.2 mmol/L Normal 21.0-32.0 The [facility] Comment on above: Performed By: #### C MP ####[facility] Kbzvjsibzo17[address] [place], [place] [address]Dr. Farhat Leal Creatinine [Mass/Vol] 1.24 mg/dL Normal 0.70-1.30 The [facility] Comment on above: Performed By: #### C MP ####[facility] Fodxjrlkuy[address] [place], [place] [address]Dr. Farhat Leal EGFR-AF ETHIOPIAN >60 Normal >=60 The [facility] Comment on above: Performed By: #### C MP ####[facility] Spgjnkjgum[address] [place], [place] [address]Dr. Farhat Leal EGFR-NON AF ETHIOPIAN 57 mL/min/1.73m2 Critically low >=60 The [facility] Comment on above: Performed By: #### C MP ####[facility] Tocddprfww[address] [place], [place] [address]Dr. Farhat Leal Globulin (S) [Mass/Vol] 3.3 g/dL Normal [facility] Comment on above: Performed By: #### C MP ####[facility] Fhpocbizyr7[address] [place], [place] [address]Dr. Farhat Leal Glucose [Mass/Vol] 275 mg/dL Critically high 74-106 [facility] Comment on above: Performed By: #### C MP ####[facility] Wtoiyvopjp[address] [place], [place] [address]Dr. Farhat Leal Potassium [Moles/Vol] 3.8 mmol/L Normal 3.5-5.1 The [facility] Comment on above: Performed By: #### C MP ####[facility] Wqfytwessp[address] [place], [place] [address]Dr. Farhat Leal Protein [Mass/Vol] 6.0 g/dL Critically low 6.4-8.2 Th e [facility] Comment on above: Performed By: #### C MP ####[facility] Akibuotusg[address] [place], [place] [address]Dr. Farhat Leal Sodium [Moles/Vol] 137 mmol/L Normal 136-145 [facility] Comment on above: Performed By: #### C MP ####[facility] Bkqvudnlnd[address] [place], [place] [address]Dr. Farhat Leal Urea nitrogen [Mass/Vol] 54.0 mg/dL Critically high 7.0-18.0 [facility] Comment on above: Performed By: #### C MP ####[facility] Xuljivloft[address] [place], [place] [address]Dr. Farhat Leal Urea nitrogen/Creatinine [Mass ratio] 43.5 mg/mg Normal [facility] Comment on above: Performed By: #### C MP ####[facility] Snhbkczcmt[address] [place], [place] [address]Dr. Farhat Leal PROTIMEon 05-22-2022 INR Coag (PPP) [Relative time] 2.27 {INR} Normal [facility] Comment on above: Performed By: #### P T ####[facility] Ebkcgticep[address] [place], [place] [address]Dr. Farhat Leal INR GUIDELINES SEE BELOW Normal [facility] Comment on above: Result Comment: MALINA RED INR: 2.0 - 3.0 CONDITIONS NOT LISTED BELOW 2.5 - 3.5 FOR PROSTHETIC HEART VALVE REPLACEMENT 2.5 - 3.5 RECURRENT THROMBOSIS Performed By: #### P T ####[facility] Epvpmhsttr[address] [place], [place] [address]Dr. Farhat Leal PT Coag (PPP) [Time] 23.0 s Critically high 9.0-11.6 [facility] Comment on above: Performed By: #### P T ####[facility] Akmwwsjibl[address] [place], [place] [address]Dr. Farhat Leal FK506 (TACROLIMUS) WHOLE BLO ODon 05-19-2022 Tacrolimus (FK506), Blood 7.8 ng/mL Normal 2.0-20.0 [facility] Comment on above: Result Comment: Trou gh (immediately following transplant) 15.0 . Trough (steady state, 2 weeks or more after transplant): 3.0 - 8.0 . Performed by LC-MS/MS technology. Performed By: #### F K506T ####[facility] Vwafvjotbt[address] [place], [place] [address]Dr. Farhat Leal CBC AUTO DIFFon 05-15-2022 BASO # 0.0 103/ul Normal 0.0-0.1 [facility] Comment on above: Performed By: #### C BC ####[facility] Qhkazhsywd[address] [place], [place] [address]Dr. Farhat Leal Basophils/100 WBC (Bld) 0.4 % Normal 0.2-2.0 [facility] Comment on above: Performed By: #### C BC ####[facility] Jkgyogrhwn[address] [place], [place] [address]Dr. Farhat Leal EO # 0.2 103/ul Normal 0.0-0.7 The [facility] Comment on above: Performed By: #### C BC ####[facility] Qcoixcxepa[address] [place], [place] [address]Dr. Farhat Leal Eosinophils/100 WBC (Bld) 3.0 % Normal 0.9-7.0 [facility] Comment on above: Performed By: #### C BC ####[facility] [address]dnbkcwclh[address] [place], [place] [address]Dr. Farhat Leal Erythrocyte distribution width (RBC) [Ratio] 15.7 % Critically high 11.0-15.0 The [facility] Comment on above: Performed By: #### C BC ####[facility] Tzijysnygk[address] [place], [place] [address]Dr. Farhat Leal Hematocrit (Bld) [Volume fraction] 36.8 % Critically low 42.0-54.0 [facility] Comment on above: Performed By: #### C BC ####[facility] Usrtgkzddh123[address] [place], [place] [address]Dr. Farhat Leal Hemoglobin (Bld) [Mass/Vol] 12.4 g/dL Critically low 14.0-18.0 [facility] Comment on above: Performed By: #### C BC ####[facility] Zhwufphrty[address] [place] [address]DrSkylar Leal IG # 0.01 10e3/ul Normal 0.00-0.03 [facility] Comment on above: Performed By: #### C BC ####[facility] Mccjyztjif9912 [place] [address]DrSkylar Leal IG % 0.1 % Normal 0.0-0.5 [facility] Comment on above: Performed By: #### C BC ####[facility] Pyettafbcw[address] [place], [place] [address]DrSkylar Leal LYMPH # 2.4 103/ul Normal 1.2-3.8 The [facility] Comment on above: Performed By: #### C BC ####[facility] Lsbcpfupib9[address] [place], [place] [address]DrSkylar Leal Lymphocytes/100 WBC (Bld) 35.6 % Normal 20.5-60.0 The [facility] Comment on above: Performed By: #### C BC ####[facility] Fjrmyodfmb[address] [place], [place] [address]DrSkylar Leal MANUAL DIFF REQ NO Normal [place] Comment on above: Performed By: #### C BC ####[facility] Omgljkzmbx6942 [place] [address]DrSkylar Leal MCH (RBC) [Entitic mass] 30.1 pg Normal 25.9-34.0 The [facility] Comment on above: Performed By: #### C BC ####[facility] Uklkpkiuhg8532 [place] [address]DrSkylar Leal MCHC (RBC) [Mass/Vol] 33.7 g/dL Normal 29.9-35.2 The [facility] Comment on above: Performed By: #### C BC ####[facility] Kutbkzplsw5445 [place] [address]DrSkylar Leal MCV (RBC) [Entitic vol] 89.3 fL Normal 80.0-94.0 The [facility] Comment on above: Performed By: #### C BC ####[facility] Vzujgpnwgr2709 [place] [address]DrSkylar Farhat Elvis MONO # 0.7 103/ul Normal 0.3-0.8 The [facility] Comment on above: Performed By: #### C BC ####[facility] Xwjmjduzyx1597 [place] [address]DrSkylar Leal Monocytes/100 WBC (Bld) 10.8 % Normal 1.7-12.0 The [facility] Comment on above: Performed By: #### C BC ####[facility] Feswpkaegm5605 [place] [address]Dr. Madelynlorri Leal NEUT # 3.4 103/ul Normal 1.4-6.5 The [facility] Comment on above: Performed By: #### C BC ####[facility] Ukimqoumwy7[address] [place] [address]Dr. Farhat Leal Neutrophils/100 WBC (Bld) 50.1 % Normal 43.0-75.0 The [facility] Comment on above: Performed By: #### C BC ####[facility] Ofgwynkwfm[address] [place], [place] [address]DrSkylar Madelynlorri Leal Platelet mean volume (Bld) [Entitic vol] 10.2 fL Normal 9.5-13.5 The [facility] Comment on above: Performed By: #### C BC ####[facility] Evhlejohvg[address] [place], [place] [id number]. Farhat Leal PLT 190 103/ul Normal 150-450 [facility] Comment on above: Performed By: #### C BC ####[facility] Fmhvzuyvms[address] [place], [place] [id number] Leal RBC 4.12 106/ul Critically low 4.70-6.10 [facility] Comment on above: Performed By: #### C BC ####[facility] Yudoexawir2334 [place] [id number] Leal WBC 6.8 103/ul Normal 4.0-11.0 The [facility] Comment on above: Performed By: #### C BC ####[facility] Ypsosyjzkf3291 [place] [address]DrSkylar Leal PROF 14(COMP METB)on 023 Albumin [Mass/Vol] 2.8 g/dL Critically low 3.4-5.0 [facility] Comment on above: Performed By: #### C MP ####[facility] Yrpfunuros6154 [place] [address]DrSkylar Leal Albumin/Globulin [Mass ratio] 0.9 {ratio} Normal [facility] Comment on above: Performed By: #### C MP ####[facility] Ynekottzkq[address] [place], [place] [address]Dr. Farhat Leal ALP [Catalytic activity/Vol] 66 U/L Normal 46-116 [facility] Comment on above: Performed By: #### C MP ####[facility] Erbflequjw[address] [place], [place] [address]Dr. Farhat Leal ALT [Catalytic activity/Vol] 15 U/L Critically low 16-63 [facility] Comment on above: Performed By: #### C MP ####[facility] Hptkpvpfjj[address] [place], [place] [address]DrSkylar Leal Anion gap [Moles/Vol] 11.1 mmol/L Normal Th [facility] Comment on above: Performed By: #### C MP ####[facility] Kodwqsmhcs[address] [place], [place] [address]DrSkylar Leal AST [Catalytic activity/Vol] 14 U/L Critically low 15-37 [facility] Comment on above: Performed By: #### C MP ####[facility] Ygjvrlwzbs8805 [place] [address]DrSkylar Leal Bilirubin [Mass/Vol] 0.8 mg/dL Normal 0.2-1.0 [facility] Comment on above: Performed By: #### C MP ####[facility] Xgzwxzyqin4562 [place] [address]DrSkylar Leal Calcium [Mass/Vol] 8.9 mg/dL Normal 8.5-10.1 [facility] Comment on above: Performed By: #### C MP ####[facility] Hbrbxgbvcr3667 [place] [address]Dr. Farhat Leal Chloride [Moles/Vol] 101 mmol/L Normal 98-107 [facility] Comment on above: Performed By: #### C MP ####[facility] Nnzdrwlhhs6664 [place] [id number]. Farhat Leal CO2 [Moles/Vol] 28.2 mmol/L Normal 21.0-32.0 [facility] Comment on above: Performed By: #### C MP ####[facility] Rpkqhoupgg2024 [place] [address]Dr. Farhat Leal Creatinine [Mass/Vol] 1.23 mg/dL Normal 0.70-1.30 [facility] Comment on above: Performed By: #### C MP ####[facility] Nokaxfwkqs23[address] [place] [address]Dr. Farhat Leal EGFR-AF ETHIOPIAN >60 Normal >=60 [facility] Comment on above: Performed By: #### C MP ####[facility] Maqzjtffce[address] [place] [address]Dr. Farhat Leal EGFR-NON AF ETHIOPIAN 57 mL/min/1.73m2 Critically low >=60 [facility] Comment on above: Performed By: #### C MP ####[facility] Uquaxkncfq6874 [place] [address]Dr. Farhat Leal Globulin (S) [Mass/Vol] 3.2 g/dL Normal [facility] Comment on above: Performed By: #### C MP ####[facility] Ysejhhcced7715 [place] [id number]. Farhat Leal Glucose [Mass/Vol] 333 mg/dL Critically high 74-106 T [facility] Comment on above: Performed By: #### C MP ####[facility] Ithmeurxmy9107 [place] [address]Dr. Farhat Leal Potassium [Moles/Vol] 4.3 mmol/L Normal 3.5-5.1 [facility] Comment on above: Performed By: #### C MP ####[facility] Ridgbaekqj4639 [place] [address]Dr. Farhat Leal Protein [Mass/Vol] 6.0 g/dL Critically low 6.4-8.2 Th e [facility] Comment on above: Performed By: #### C MP ####[facility] Bprqzlodrl2145 [place] [address]Dr. Farhat Leal Sodium [Moles/Vol] 136 mmol/L Normal 136-145 [facility] Comment on above: Performed By: #### C MP ####[facility] H[address]fnumztpe[address] [place], [place] [address]Dr. Farhat Leal Urea nitrogen [Mass/Vol] 58.0 mg/dL Critically high 7.0-18.0 [facility] Comment on above: Performed By: #### C MP ####[facility] Vfkcelnjlo[address] [place], [place] [address]Dr. Farhat Leal Urea nitrogen/Creatinine [Mass ratio] 47.2 mg/mg Normal [facility] Comment on above: Performed By: #### C MP ####[facility] Fhgtckrsgk[address] [place], [place] [address]Dr. Farhat Leal PROTIMEon 05-13-2022 INR Coag (PPP) [Relative time] 3.51 {INR} Normal [facility] Comment on above: Performed By: #### P T ####[facility] Fjyikzlehu[address] [place], [place] [address]Dr. Farhat Leal INR GUIDELINES SEE BELOW Normal [facility] Comment on above: Result Comment: MALINA RED INR: 2.0 - 3.0 CONDITIONS NOT LISTED BELOW 2.5 - 3.5 FOR PROSTHETIC HEART VALVE REPLACEMENT 2.5 - 3.5 RECURRENT THROMBOSIS Performed By: #### P T ####[facility] Cvbzjaszyw[address] [place], [place] [address]Dr. Farhat Leal PT Coag (PPP) [Time] 34.7 s Critically high 9.0-11.6 [facility] Comment on above: Performed By: #### P T ####[facility] Eykikatqla[address] [place], [place] [address]Dr. Farhat eLal FK506 (TACROLIMUS) WHOLE BLO ODon 05-11-2022 Tacrolimus (FK506), Blood 14.4 ng/mL Normal 2.0-20.0 [facility] Comment on above: Result Comment: Trou gh (immediately following transplant) 15.0 . Trough (steady state, 2 weeks or more after transplant): 3.0 - 8.0 . Performed by LC-MS/MS technology. Performed By: #### F K506T ####[facility] Bysipjsclc[address] [place], [place] [address]Dr. Farhat Leal CBC AUTO DIFFon 05-08-2022 BASO # 0.0 103/ul Normal 0.0-0.1 [facility] Comment on above: Performed By: #### C BC ####[facility] Bklhixtfjz[address] [place], [place] [address]Dr. Farhat Leal Basophils/100 WBC (Bld) 0.5 % Normal 0.2-2.0 [facility] Comment on above: Performed By: #### C BC ####[facility] Xbeqacvzia[address] [place], [place] [address]Dr. Farhat Leal EO # 0.2 103/ul Normal 0.0-0.7 [facility] Comment on above: Performed By: #### C BC ####[facility] Wmtuenbnpz[address] [place], [place] [address]Dr. Farhat Leal Eosinophils/100 WBC (Bld) 2.9 % Normal 0.9-7.0 [facility] Comment on above: Performed By: #### C BC ####[facility] Uaevbxnrjw[address] [place], [place] [address]Dr. Farhat Leal Erythrocyte distribution width (RBC) [Ratio] 16.0 % Critically high 11.0-15.0 [facility] Comment on above: Performed By: #### C BC ####[facility] Vxrbtnctcd[address] [place], [place] [address]Dr. Farhat Leal Hematocrit (Bld) [Volume fraction] 35.7 % Critically low 42.0-54.0 [facility] Comment on above: Performed By: #### C BC ####[facility] W[address]zcmwusj40[address] [place] [id number]. Farhat Leal Hemoglobin (Bld) [Mass/Vol] 11.9 g/dL Critically low 14.0-18.0 [facility] Comment on above: Performed By: #### C BC ####[facility] Ofvxzwulhu4143 [place] [id number]. Farhat Leal IG # 0.03 10e3/ul Normal 0.00-0.03 [facility] Comment on above: Performed By: #### C BC ####[facility] Pyrvzgwtcq0109 [place] [id number]. Farhat Leal IG % 0.5 % Normal 0.0-0.5 [facility] Comment on above: Performed By: #### C BC ####[facility] Aevwvvkwhr[address] [place] [address]Dr. Farhat Leal LYMPH # 2.4 103/ul Normal 1.2-3.8 [facility] Comment on above: Performed By: #### C BC ####[facility] Pvoorpdosx9429 [place] [id number]. Farhat Leal Lymphocytes/100 WBC (Bld) 37.8 % Normal 20.5-60.0 [facility] Comment on above: Performed By: #### C BC ####[facility] Uwxtrkanzm6978 [place] [id number]. Farhat Leal MANUAL DIFF REQ NO Normal [facility] Comment on above: Performed By: #### C BC ####[facility] Ipitwktvfi[address] [place], [place] [id number]. Farhat Leal MCH (RBC) [Entitic mass] 30.4 pg Normal 25.9-34.0 [facility] Comment on above: Performed By: #### C BC ####[facility] Utzhtqevbv1378 [place] [phone]. Farhat Leal MCHC (RBC) [Mass/Vol] 33.3 g/dL Normal 29.9-35.2 [facility] Comment on above: Performed By: #### C BC ####[facility] Ccccirtomb4435 [place] [phone]. Farhat Leal MCV (RBC) [Entitic vol] 91.1 fL Normal 80.0-94.0 [facility] Comment on above: Performed By: #### C BC ####[facility] Fhelmetuoo8258 [place] [phone]. Farhat Leal MONO # 0.7 103/ul Normal 0.3-0.8 [facility] Comment on above: Performed By: #### C BC ####[facility] Isfrorruji8289 [place] [id number]. Farhat Leal Monocytes/100 WBC (Bld) 11.1 % Normal 1.7-12.0 [facility] Comment on above: Performed By: #### C BC ####[facility] Khwqlxjfrx[address] [place], [place] [address]Dr. Farhat Leal NEUT # 2.9 103/ul Normal 1.4-6.5 [facility] Comment on above: Performed By: #### C BC ####[facility] Jequybjhpr[address] [place], [place] [id number]. Farhat Leal Neutrophils/100 WBC (Bld) 47.2 % Normal 43.0-75.0 [facility] Comment on above: Performed By: #### C BC ####[facility] Cxexnosora8[address] [place], [place] [address]Dr. Farhat Leal Platelet mean volume (Bld) [Entitic vol] 11.0 fL Normal 9.5-13.5 [facility] Comment on above: Performed By: #### C BC ####[facility] Zrkwwjpsxb4[address] [place], [place] [id number]. Farhat Leal PLT 191 103/ul Normal 150-450 [facility] Comment on above: Performed By: #### C BC ####[facility] Xcowbgyijg[address] [place], [place] [address]Dr. Farhat Leal RBC 3.92 106/ul Critically low 4.70-6.10 [facility] Comment on above: Performed By: #### C BC ####[facility] Xnemsnpxgy5[address] [place] [address]Dr. Farhat Leal WBC 6.2 103/ul Normal 4.0-11.0 [facility] Comment on above: Performed By: #### C BC ####[facility] Wwhhjumcep0548 [place] [address]Dr. Farhat Leal MAGNESIUMon 05-08-2022 Magnesium [Mass/Vol] 1.9 mg/dL Normal 1.8-2.4 [facility] Comment on above: Performed By: #### P HOS, MG ####[facility] Qhvoypvgzb8118 [place] [address]Dr. Farhat Leal PHOSPHORUSon 05-08-2022 Phosphate [Mass/Vol] 4.5 mg/dL Normal 2.6-4.7 [facility] Comment on above: Performed By: #### P HOS, MG ####[facility] Afbtzajyzi[address] [place], [place] [address]Dr. Farhat Leal PROF 14(COMP METB)on 023 Albumin [Mass/Vol] 2.9 g/dL Critically low 3.4-5.0 [facility] Comment on above: Performed By: #### C MP ####[facility] Hojrdzxsyg[address] [place], [place] [address]Dr. Farhat Leal Albumin/Globulin [Mass ratio] 0.9 {ratio} Normal [facility] Comment on above: Performed By: #### C MP ####[facility] Scxqjtkpfu[address] [place], [place] [address]Dr. Farhat Leal ALP [Catalytic activity/Vol] 70 U/L Normal 46-116 [facility] Comment on above: Performed By: #### C MP ####[facility] Urzvmimclz1206 [place] [address]Dr. Farhat Leal ALT [Catalytic activity/Vol] 13 U/L Critically low 16-63 [facility] Comment on above: Performed By: #### C MP ####[facility] Tfzgyzkalk4190 [place] [address]Dr. Farhat Leal Anion gap [Moles/Vol] 14.6 mmol/L Normal [facility] Comment on above: Performed By: #### C MP ####[facility] Jzyfbbaugp3033 [place] [address]Dr. Farhat Leal AST [Catalytic activity/Vol] 17 U/L Normal 15-37 [facility] Comment on above: Performed By: #### C MP ####[facility] Vrqfvvsmac6273 [place] [phone]. Farhat Leal Bilirubin [Mass/Vol] 0.8 mg/dL Normal 0.2-1.0 [facility] Comment on above: Performed By: #### C MP ####[facility] Rgtmqhkhcg2076 [place] [address]Dr. Farhat Leal Calcium [Mass/Vol] 8.9 mg/dL Normal 8.5-10.1 [facility] Comment on above: Performed By: #### C MP ####[facility] Uberncuyby[address] [place], [place] [address]Dr. Farhat Leal Chloride [Moles/Vol] 102 mmol/L Normal 98-107 [facility] Comment on above: Performed By: #### C MP ####[facility] Umaqldnyoj[address] [place], [place] [address]Dr. Farhat Leal CO2 [Moles/Vol] 22.9 mmol/L Normal 21.0-32.0 [facility] Comment on above: Performed By: #### C MP ####[facility] Lxaqseiopq[address] [place], [place] [address]Dr. Farhat Leal Creatinine [Mass/Vol] 1.20 mg/dL Normal 0.70-1.30 [facility] Comment on above: Performed By: #### C MP ####[facility] Mkidxmmuxd0147 [place] [address]Dr. Farhat Leal EGFR-AF ETHIOPIAN >60 Normal >=60 [facility] Comment on above: Performed By: #### C MP ####[facility] Ofocslponi2034 [place] [address]Dr. Farhat Leal EGFR-NON AF ETHIOPIAN 59 mL/min/1.73m2 Critically low >=60 [facility] Comment on above: Performed By: #### C MP ####[facility] Dhbyofubuu7466 [place] [phone]. Farhat Leal Globulin (S) [Mass/Vol] 3.1 g/dL Normal [facility] Comment on above: Performed By: #### C MP ####[facility] Ljvnvjmujf2286 [place] [phone]. Farhat Leal Glucose [Mass/Vol] 447 mg/dL Critically high 74-106 [facility] Comment on above: Performed By: #### C MP ####[facility] Qxddjuzhhp2580 [place] [phone]. Farhat Leal Potassium [Moles/Vol] 4.5 mmol/L Normal 3.5-5.1 [facility] Comment on above: Performed By: #### C MP ####[facility] Jdbhvfkxnn8576 [place] [address]Dr. Farhat Leal Protein [Mass/Vol] 6.0 g/dL Critically low 6.4-8.2 Th [facility] Comment on above: Performed By: #### C MP ####[facility] [address]awelrwgyc[address] [place], [place] [address]Dr. Farhat Leal Sodium [Moles/Vol] 135 mmol/L Critically low 136-145 Th [facility] Comment on above: Performed By: #### C MP ####[facility] Ugsaakrktl8881 [place] [address]Dr. Farhat Leal Urea nitrogen [Mass/Vol] 52.0 mg/dL Critically high 7.0-18.0 [facility] Comment on above: Performed By: #### C MP ####[facility] Pvfkqqmuum2864 [place] [address]Dr. Farhat Leal Urea nitrogen/Creatinine [Mass ratio] 43.3 mg/mg Normal [facility] Comment on above: Performed By: #### C MP ####[facility] Vabtjohxsp060[address] [place] [address]Dr. Farhat Elvis PROTIMEon 05-06-2022 INR Coag (PPP) [Relative time] 2.25 {INR} Normal [facility] Comment on above: Performed By: #### P T ####[facility] Lgafeblbxk5137 [place] [address]DrSkylar Leal INR GUIDELINES SEE BELOW Normal The [facility] Comment on above: Result Comment: MALINA RED INR: 2.0 - 3.0 CONDITIONS NOT LISTED BELOW 2.5 - 3.5 FOR PROSTHETIC HEART VALVE REPLACEMENT 2.5 - 3.5 RECURRENT THROMBOSIS Performed By: #### P T ####[facility] Awccymjpfw[address] [place], [place] [address]Dr. Farhat Leal PT Coag (PPP) [Time] 22.8 s Critically high 9.0-11.6 [facility] Comment on above: Performed By: #### P T ####[facility] Wnmdsniokn[address] [place], [place] [address]Dr. Farhat Leal FK506 (TACROLIMUS) WHOLE BLO ODon 05-04-2022 Tacrolimus (FK506), Blood 10.4 ng/mL Normal 2.0-20.0 [facility] Comment on above: Result Comment: Trou gh (immediately following transplant) 15.0 . Trough (steady state, 2 weeks or more after transplant): 3.0 - 8.0 . Performed by LC-MS/MS technology. Performed By: #### F K506T ####[facility] Iekxojrtxm[address] [place], [place] [address]DrSkylar Leal CBC AUTO DIFFon 05-01-2022 BASO # 0.1 103/ul Normal 0.0-0.1 [facility] Comment on above: Performed By: #### C BC ####[facility] Jrtbhlfvps[address] [place], [place] [address]Dr. Farhat Leal Basophils/100 WBC (Bld) 0.7 % Normal 0.2-2.0 [facility] Comment on above: Performed By: #### C BC ####[facility] Csrhpepmlx[address] [place], [place] [address]Dr. Farhat Leal EO # 0.2 103/ul Normal 0.0-0.7 [facility] Comment on above: Performed By: #### C BC ####[facility] Yxjrylhmxs7612 [place] [phone]. Farhat Leal Eosinophils/100 WBC (Bld) 3.2 % Normal 0.9-7.0 [facility] Comment on above: Performed By: #### C BC ####[facility] Utawwplvlc8169 [place] [phone]. Farhat Leal Erythrocyte distribution width (RBC) [Ratio] 16.4 % Critically high 11.0-15.0 [facility] Comment on above: Performed By: #### C BC ####[facility] Qrgyovvgip[address] [place], [place] [address]Dr. Farhat Leal Hematocrit (Bld) [Volume fraction] 35.1 % Critically low 42.0-54.0 [facility] Comment on above: Performed By: #### C BC ####[facility] Jwcrniamdb[address] [place], [place] [address]Dr. Farhat Leal Hemoglobin (Bld) [Mass/Vol] 11.6 g/dL Critically low 14.0-18.0 [facility] Comment on above: Performed By: #### C BC ####[facility] Dgaxkllnxs[address] [place], [place] [address]Dr. Farhat Leal IG # 0.03 10e3/ul Normal 0.00-0.03 [facility] Comment on above: Performed By: #### C BC ####[facility] Vescixgsmd[address] [place], [place] [address]Dr. Farhat Leal IG % 0.4 % Normal 0.0-0.5 [facility] Comment on above: Performed By: #### C BC ####[facility] Puhjlwfkez[address] [place], [place] [address]Dr. Farhat Leal LYMPH # 2.4 103/ul Normal 1.2-3.8 [facility] Comment on above: Performed By: #### C BC ####[facility] Mubgmsjuvg[address] [place], [place] [address]Dr. Farhat Leal Lymphocytes/100 WBC (Bld) 35.1 % Normal 20.5-60.0 [facility] Comment on above: Performed By: #### C BC ####[facility] Bmclopcdcf1213 [place] [id number]. Farhat Leal MANUAL DIFF REQ NO Normal [place] Comment on above: Performed By: #### C BC ####[facility] Jajzrstglg8277 [place] [phone]. Farhat Leal MCH (RBC) [Entitic mass] 29.4 pg Normal 25.9-34.0 [facility] Comment on above: Performed By: #### C BC ####[facility] Zsajmoeyho[address] [place], [place] [address]Dr. Farhat Leal MCHC (RBC) [Mass/Vol] 33.0 g/dL Normal 29.9-35.2 [facility] Comment on above: Performed By: #### C BC ####[facility] Ykpnbxxpok[address] [place], [place] [address]Dr. Farhat Leal MCV (RBC) [Entitic vol] 88.9 fL Normal 80.0-94.0 [facility] Comment on above: Performed By: #### C BC ####[facility] Aqckgyriah[address] [place], [place] [address]Dr. Farhat Leal MONO # 0.7 103/ul Normal 0.3-0.8 [facility] Comment on above: Performed By: #### C BC ####[facility] Yunlogrgia[address] [place], [place] [address]Dr. Farhat Elvis Monocytes/100 WBC (Bld) 9.6 % Normal 1.7-12.0 [facility] Comment on above: Performed By: #### C BC ####[facility] Beufjjfwdm[address] [place], [place] [address]Dr. Farhat Leal NEUT # 3.5 103/ul Normal 1.4-6.5 [facility] Comment on above: Performed By: #### C BC ####[facility] Ltfdrmsrsv[address] [place], [place] [address]Dr. Farhat Leal Neutrophils/100 WBC (Bld) 51.0 % Normal 43.0-75.0 [facility] Comment on above: Performed By: #### C BC ####[facility] Vlldxwxkzx2928 [place] [phone]. Farhat Leal Platelet mean volume (Bld) [Entitic vol] 10.3 fL Normal 9.5-13.5 [facility] Comment on above: Performed By: #### C BC ####[facility] Fdzdhseeim2441 [place] [phone]. Farhat Leal PLT 184 103/ul Normal 150-450 [facility] Comment on above: Performed By: #### C BC ####[facility] Kfzfadwihc2466 [place] [phone]. Farhat Leal RBC 3.95 106/ul Critically low 4.70-6.10 [place] Comment on above: Performed By: #### C BC ####[facility] Gbiklccbgp49[address] [place] [address]Dr. Farhat Leal WBC 7.0 103/ul Normal 4.0-11.0 [facility] Comment on above: Performed By: #### C BC ####[facility] Vcnzxfxrfk6241 [place] [address]Dr. Farhat Leal PROF 14(COMP METB)on 023 Albumin [Mass/Vol] 2.6 g/dL Critically low 3.4-5.0 [facility] Comment on above: Performed By: #### C MP ####[facility] Whddeznlug2794 [place] [address]Dr. Farhat Leal Albumin/Globulin [Mass ratio] 0.9 {ratio} Normal [facility] Comment on above: Performed By: #### C MP ####[facility] Liusfqpgso6452 [place] [address]Dr. Farhat Leal ALP [Catalytic activity/Vol] 53 U/L Normal 46-116 [facility] Comment on above: Performed By: #### C MP ####[facility] Sfzwupbaoa6164 [place] [address]Dr. Farhat Leal ALT [Catalytic activity/Vol] 17 U/L Normal 16-63 [facility] Comment on above: Performed By: #### C MP ####[facility] Gjpvvuveko2515 [place] [id number]. Farhat Leal Anion gap [Moles/Vol] 10.0 mmol/L Normal [facility] Comment on above: Performed By: #### C MP ####[facility] Empuabflyg2716 [place] [phone]. Farhat Leal AST [Catalytic activity/Vol] 19 U/L Normal 15-37 [facility] Comment on above: Performed By: #### C MP ####[facility] Apjjfowysn5909 [place] [phone]. Farhat Leal Bilirubin [Mass/Vol] 0.5 mg/dL Normal 0.2-1.0 [facility] Comment on above: Performed By: #### C MP ####[facility] Vyzmxycqur[address] [place], [place] [address]Dr. Farhat Leal Calcium [Mass/Vol] 8.4 mg/dL Critically low 8.5-10.1 [facility] Comment on above: Performed By: #### C MP ####[facility] Swglujqblt6813 [place] [phone]. Farhat Leal Chloride [Moles/Vol] 108 mmol/L Critically high 98-107 [facility] Comment on above: Performed By: #### C MP ####[facility] Uvcjdoareu96[address] [place], [place] [address]Dr. Farhat Leal CO2 [Moles/Vol] 26.9 mmol/L Normal 21.0-32.0 [facility] Comment on above: Performed By: #### C MP ####[facility] Gyzofmynoh1832 [place] [phone]. Farhat Leal Creatinine [Mass/Vol] 1.20 mg/dL Normal 0.70-1.30 [facility] Comment on above: Performed By: #### C MP ####[facility] Pfbbalxggl1770 [place] [phone]. Farhat Leal EGFR-AF ETHIOPIAN >60 Normal >=60 [facility] Comment on above: Performed By: #### C MP ####[facility] Qcqbnmflno6707 [place] [phone]. Farhat Leal EGFR-NON AF ETHIOPIAN 59 mL/min/1.73m2 Critically low >=60 [facility] Comment on above: Performed By: #### C MP ####[facility] Ghigpthvbh8367 [place] [address]Dr. Farhat Leal Globulin (S) [Mass/Vol] 3.0 g/dL Normal [facility] Comment on above: Performed By: #### C MP ####[facility] Jwaefgjhfu1018 [place] [address]Dr. Farhat Leal Glucose [Mass/Vol] 213 mg/dL Critically high 74-106 T [facility] Comment on above: Performed By: #### C MP ####[facility] Hdyhunevnw6558 [place] [address]Dr. Farhat Leal Potassium [Moles/Vol] 3.9 mmol/L Normal 3.5-5.1 [facility] Comment on above: Performed By: #### C MP ####[facility] Pasiczzlak7767 [place] [address]Dr. Farhat Leal Protein [Mass/Vol] 5.6 g/dL Critically low 6.4-8.2 Th [facility] Comment on above: Performed By: #### C MP ####[facility] Kbovrrgskh[address] [place], [place] [address]Dr. Farhat Leal Sodium [Moles/Vol] 141 mmol/L Normal 136-145 [facility] Comment on above: Performed By: #### C MP ####[facility] Twkzoizvsk8770 [place] [address]Dr. Farhat Leal Urea nitrogen [Mass/Vol] 61.0 mg/dL Critically high 7.0-18.0 [facility] Comment on above: Performed By: #### C MP ####[facility] Wyyiuawcnr1841 [place] [address]Dr. Farhat Leal Urea nitrogen/Creatinine [Mass ratio] 50.8 mg/mg Normal [facility] Comment on above: Performed By: #### C MP ####[facility] Ibgiiaobng[address] [place], [place] [address]Dr. Farhat Elvis FK506 (TACROLIMUS) WHOLE BLO ODon 04-27-2022 Tacrolimus (FK506), Blood 16.5 ng/mL Normal 2.0-20.0 [facility] Comment on above: Result Comment: Trou gh (immediately following transplant) 15.0 . Trough (steady state, 2 weeks or more after transplant): 3.0 - 8.0 . Performed by LC-MS/MS technology. Performed By: #### F K506T ####[facility] Ytlgjugxtz[address] [place], [place] [address]Dr. Farhat Elvis CBC AUTO DIFFon 04-24-2022 BASO # 0.0 103/ul Normal 0.0-0.1 [facility] Comment on above: Performed By: #### C BC ####[facility] Hwzsfvgtoy[address] [place], [place] [address]Dr. Farhat Leal Basophils/100 WBC (Bld) 0.5 % Normal 0.2-2.0 [facility] Comment on above: Performed By: #### C BC ####[facility] Yyzzqoprgu[address] [place], [place] [address]Dr. Farhat Leal EO # 0.2 103/ul Normal 0.0-0.7 [facility] Comment on above: Performed By: #### C BC ####[facility] Gppzawkqaj[address] [place], [place] [address]Dr. Farhat Leal Eosinophils/100 WBC (Bld) 3.1 % Normal 0.9-7.0 [facility] Comment on above: Performed By: #### C BC ####[facility] Nwjjwbgtog[address] [place], [place] [address]Dr. Farhat Leal Erythrocyte distribution width (RBC) [Ratio] 16.3 % Critically high 11.0-15.0 [facility] Comment on above: Performed By: #### C BC ####[facility] Bpjmkqywxh[address] [place], [place] [address]Dr. Farhat Leal Hematocrit (Bld) [Volume fraction] 34.0 % Critically low 42.0-54.0 [facility] Comment on above: Performed By: #### C BC ####[facility] Mzqyfcysaa0088 [place] [phone]. Farhat Leal Hemoglobin (Bld) [Mass/Vol] 11.6 g/dL Critically low 14.0-18.0 [facility] Comment on above: Performed By: #### C BC ####[facility] Oqndwlgoth4989 [place] [address]Dr. Farhat Leal IG # 0.02 10e3/ul Normal 0.00-0.03 [facility] Comment on above: Performed By: #### C BC ####[facility] Vtuyxivkht[address] [place], [place] [address]Dr. Farhat Leal IG % 0.4 % Normal 0.0-0.5 [facility] Comment on above: Performed By: #### C BC ####[facility] Pxsvnailud217[address] [place], [place] [address]Dr. Farhat Leal LYMPH # 2.2 103/ul Normal 1.2-3.8 [facility] Comment on above: Performed By: #### C BC ####[facility] Ddkvuoqtev[address] [place], [place] [address]Dr. Farhat Leal Lymphocytes/100 WBC (Bld) 38.8 % Normal 20.5-60.0 [facility] Comment on above: Performed By: #### C BC ####[facility] Qbsscclbzu[address] [place], [place] [address]Dr. Farhat Leal MANUAL DIFF REQ NO Normal [facility] Comment on above: Performed By: #### C BC ####[facility] Bdolbfvwho140[address] [place], [place] [address]Dr. Farhat Leal MCH (RBC) [Entitic mass] 30.1 pg Normal 25.9-34.0 [facility] Comment on above: Performed By: #### C BC ####[facility] Kvayspcyfy[address] [place], [place] [address]Dr. Farhat Leal MCHC (RBC) [Mass/Vol] 34.1 g/dL Normal 29.9-35.2 [facility] Comment on above: Performed By: #### C BC ####[facility] Umxxgucrst9122 [place] [phone]. Farhat Leal MCV (RBC) [Entitic vol] 88.1 fL Normal 80.0-94.0 [facility] Comment on above: Performed By: #### C BC ####[facility] Rlxhvrvawv9487 [place] [phone]. Farhat Leal MONO # 0.6 103/ul Normal 0.3-0.8 [facility] Comment on above: Performed By: #### C BC ####[facility] Fhmditrjhe6601 [place] [phone]. Farhat Leal Monocytes/100 WBC (Bld) 10.8 % Normal 1.7-12.0 [facility] Comment on above: Performed By: #### C BC ####[facility] Fpthliaphk[address] [place], [place] [id number]. Farhat Leal NEUT # 2.6 103/ul Normal 1.4-6.5 [facility] Comment on above: Performed By: #### C BC ####[facility] Wfsuojbcwo8[address] [place], [place] [address]Dr. Farhat Leal Neutrophils/100 WBC (Bld) 46.4 % Normal 43.0-75.0 [facility] Comment on above: Performed By: #### C BC ####[facility] Uekypwoocj2844 [place] [phone]. Farhat Leal Platelet mean volume (Bld) [Entitic vol] 10.9 fL Normal 9.5-13.5 [facility] Comment on above: Performed By: #### C BC ####[facility] Eqojcwnhid6230 [place] [id number]. Farhat Leal PLT 159 103/ul Normal 150-450 [facility] Comment on above: Performed By: #### C BC ####[facility] Fwrzvfivga3217 [place] [phone]. Farhat Leal RBC 3.86 106/ul Critically low 4.70-6.10 [facility] Comment on above: Performed By: #### C BC ####[facility] Txycbkssxb3251 [place] [address]Dr. Farhat Leal WBC 5.6 103/ul Normal 4.0-11.0 [facility] Comment on above: Performed By: #### C BC ####[facility] Patvttxdmv9510 [place] [address]DrSkylar Leal PROTIMEon 04-24-2022 INR Coag (PPP) [Relative time] 3.23 {INR} Normal [facility] Comment on above: Performed By: #### P T ####[facility] Xkjbydxpzt[address] [place], [place] [address]DrSkylar Leal INR GUIDELINES SEE BELOW Normal The [facility] Comment on above: Result Comment: MALINA RED INR: 2.0 - 3.0 CONDITIONS NOT LISTED BELOW 2.5 - 3.5 FOR PROSTHETIC HEART VALVE REPLACEMENT 2.5 - 3.5 RECURRENT THROMBOSIS Performed By: #### P T ####[facility] [address] [place], [place] [address]DrSkylar Leal PT Coag (PPP) [Time] 32.0 s Critically high 9.0-11.6 [facility] Comment on above: Performed By: #### P T ####[facility] [address] [place], [place] [address]DrSkylar Leal FK506 (TACROLIMUS) WHOLE BLO ODon 04-20-2022 Tacrolimus (FK506), Blood 13.9 ng/mL Normal 2.0-20.0 The [facility] Comment on above: Result Comment: Trou gh (immediately following transplant) 15.0 . Trough (steady state, 2 weeks or more after transplant): 3.0 - 8.0 . Performed by LC-MS/MS technology. Performed By: #### F K506T ####[facility] [address] [place], [place] [address]DrSkylar Leal CBC AUTO DIFFon 04-17-2022 BASO # 0.0 103/ul Normal 0.0-0.1 [facility] Comment on above: Performed By: #### C BC ####[facility] [address] [place], [place] [address]DrSkylar Leal Basophils/100 WBC (Bld) 0.4 % Normal 0.2-2.0 [facility] Comment on above: Performed By: #### C BC ####[facility] S[address]mb[address] [place], [place] [address]Dr. Farhat Leal EO # 0.2 103/ul Normal 0.0-0.7 [facility] Comment on above: Performed By: #### C BC ####[facility] [address] [place], [place] [address]Dr. Farhat Leal Eosinophils/100 WBC (Bld) 2.8 % Normal 0.9-7.0 [facility] Comment on above: Performed By: #### C BC ####[facility] [address]pib[address] [place], [place] [address]Dr. Farhat Leal Erythrocyte distribution width (RBC) [Ratio] 16.1 % Critically high 11.0-15.0 The [facility] Comment on above: Performed By: #### C BC ####[facility] Qlc[address] [place], [place] [address]Dr. Farhat Leal Hematocrit (Bld) [Volume fraction] 35.7 % Critically low 42.0-54.0 [facility] Comment on above: Performed By: #### C BC ####[facility] [address] [place], [place] [address]Dr. Farhat Leal Hemoglobin (Bld) [Mass/Vol] 12.2 g/dL Critically low 14.0-18.0 [facility] Comment on above: Performed By: #### C BC ####[facility] S[address] [place], [place] [address]Dr. Farhat Leal IG # 0.03 10e3/ul Normal 0.00-0.03 [facility] Comment on above: Performed By: #### C BC ####[facility] C[address] [place], [place] [address]Dr. Farhat Leal IG % 0.4 % Normal 0.0-0.5 [facility] Comment on above: Performed By: #### C BC ####[facility] [address] [place], [place] [address]Dr. Farhat Leal LYMPH # 2.4 103/ul Normal 1.2-3.8 [facility] Comment on above: Performed By: #### C BC ####[facility] [address] [place] [id number]. Madelynlorri Leal Lymphocytes/100 WBC (Bld) 36.1 % Normal 20.5-60.0 [facility] Comment on above: Performed By: #### C BC ####[facility] [address] [place] [address]Dr. Farhat Leal MANUAL DIFF REQ NO Normal [facility] Comment on above: Performed By: #### C BC ####[facility] [address]rlujuv[address] [place] [address]Dr. Farhat Leal MCH (RBC) [Entitic mass] 30.3 pg Normal 25.9-34.0 [facility] Comment on above: Performed By: #### C BC ####[facility] Eycejlqusq15[address] [place] [address]Dr. Farhat Leal MCHC (RBC) [Mass/Vol] 34.2 g/dL Normal 29.9-35.2 [facility] Comment on above: Performed By: #### C BC ####[facility] [address]wcgngha79[address] [place] [address]Dr. Farhat Leal MCV (RBC) [Entitic vol] 88.6 fL Normal 80.0-94.0 [facility] Comment on above: Performed By: #### C BC ####[facility] Knteavctid50[address] [place] [address]Dr. Farhat Leal MONO # 0.7 103/ul Normal 0.3-0.8 [facility] Comment on above: Performed By: #### C BC ####[facility] [address]emgpmcd[address] [place] [address]Dr. Farhat Leal Monocytes/100 WBC (Bld) 10.1 % Normal 1.7-12.0 [facility] Comment on above: Performed By: #### C BC ####[facility] [address]yh[address]osceo39[address] [place] [address]Dr. Farhat Leal NEUT # 3.4 103/ul Normal 1.4-6.5 [facility] Comment on above: Performed By: #### C BC ####[facility] Bvfyeivtnk[address] [place] [address]Dr. Farhat Leal Neutrophils/100 WBC (Bld) 50.2 % Normal 43.0-75.0 [facility] Comment on above: Performed By: #### C BC ####[facility] Cgvbznwxqo1445 [place] [address]Dr. Farhat Elvis Platelet mean volume (Bld) [Entitic vol] 11.8 fL Normal 9.5-13.5 [facility] Comment on above: Performed By: #### C BC ####[facility] Mhvfrpjoqr7583 [place] [address]Dr. Farhat Elvis PLT 193 103/ul Normal 150-450 [facility] Comment on above: Performed By: #### C BC ####[facility] Jffscbmaqf[address] [place] [address]Dr. Farhat Elvis RBC 4.03 106/ul Critically low 4.70-6.10 [facility] Comment on above: Performed By: #### C BC ####[facility] [address] [place], [place] [address]Dr. Farhat Elvis WBC 6.8 103/ul Normal 4.0-11.0 [facility] Comment on above: Performed By: #### C BC ####[facility] [address] [place], [place] [address]DrSkylar Leal PROF 14(COMP METB)on 023 Albumin [Mass/Vol] 2.9 g/dL Critically low 3.4-5.0 Th [facility] Comment on above: Performed By: #### C MP ####[facility] N[address] [place], [place] [address]Dr. Farhat Leal Albumin/Globulin [Mass ratio] 0.9 {ratio} Normal [facility] Comment on above: Performed By: #### C MP ####[facility] Fpr[address]dsi[address] [place], [place] [address]Dr. Farhat Leal ALP [Catalytic activity/Vol] 67 U/L Normal 46-116 [facility] Comment on above: Performed By: #### C MP ####[facility] Z[address]bytkmnl[address] [place] [address]Dr. Farhat Leal ALT [Catalytic activity/Vol] 15 U/L Critically low 16-63 [facility] Comment on above: Performed By: #### C MP ####[facility] Mmxwjejand5[address] [place] [address]Dr. Farhat Elvis Anion gap [Moles/Vol] 10.8 mmol/L Normal Th e [facility] Comment on above: Performed By: #### C MP ####[facility] Spfhuyowre[address] [place] [address]Dr. Farhat Elvis AST [Catalytic activity/Vol] 23 U/L Normal 15-37 [facility] Comment on above: Performed By: #### C MP ####[facility] Hrznbavtib[address] [place] [address]Dr. Farhat Elvis Bilirubin [Mass/Vol] 0.6 mg/dL Normal 0.2-1.0 [facility] Comment on above: Performed By: #### C MP ####[facility] [address]qbjdyafr[address] [place] [address]Dr. Farhat Elvis Calcium [Mass/Vol] 8.7 mg/dL Normal 8.5-10.1 [facility] Comment on above: Performed By: #### C MP ####[facility] Atcultrowu[address]94 [place] [address]Dr. Farhat Elvis Chloride [Moles/Vol] 105 mmol/L Normal 98-107 [facility] Comment on above: Performed By: #### C MP ####[facility] Nbajoapsxm4595 [place] [address]Dr. Farhat Leal CO2 [Moles/Vol] 29.5 mmol/L Normal 21.0-32.0 The [facility] Comment on above: Performed By: #### C MP ####[facility] Znwcqiktci1227 [place] [address]Dr. Farhat Leal Creatinine [Mass/Vol] 1.37 mg/dL Critically high 0.70-1.30 [facility] Comment on above: Performed By: #### C MP ####[facility] Dcslzuvyev75[address] [place] [id number]. Farhat Elvis EGFR-AF ETHIOPIAN >60 Normal >=60 [facility] Comment on above: Performed By: #### C MP ####[facility] Talucepqlh[address] [place] [id number]. Farhat Leal EGFR-NON AF ETHIOPIAN 50 mL/min/1.73m2 Critically low >=60 [facility] Comment on above: Performed By: #### C MP ####[facility] Oxuzhhmbnt14[address] [place] [address]Dr. Farhat Leal Globulin (S) [Mass/Vol] 3.1 g/dL Normal [facility] Comment on above: Performed By: #### C MP ####[facility] Vfssorqlfr5[address] [place] [id number]. Farhat Leal Glucose [Mass/Vol] 203 mg/dL Critically high 74-106 [facility] Comment on above: Performed By: #### C MP ####[facility] Lssavatbwz6028 [place] [id number]. Farhat Leal Potassium [Moles/Vol] 4.3 mmol/L Normal 3.5-5.1 [facility] Comment on above: Performed By: #### C MP ####[facility] Qweuziagxr[address] [place] [id number]. Farhat Leal Protein [Mass/Vol] 6.0 g/dL Critically low 6.4-8.2 Th [facility] Comment on above: Performed By: #### C MP ####[facility] Gdufhawzhj0094 [place] [id number]. Farhat Leal Sodium [Moles/Vol] 141 mmol/L Normal 136-145 [facility] Comment on above: Performed By: #### C MP ####[facility] Mbdqevwshj1203 [place] [id number]. Farhat Leal Urea nitrogen [Mass/Vol] 65.0 mg/dL Critically high 7.0-18.0 [facility] Comment on above: Performed By: #### C MP ####[facility] [address]ai[address]zrlk[address] [place] [address]DrSkylar Leal Urea nitrogen/Creatinine [Mass ratio] 47.4 mg/mg Normal [facility] Comment on above: Performed By: #### C MP ####[facility] Axetrrkhbp[address]646 [place] [id number] Leal PROTIMEon 04-15-2022 INR Coag (PPP) [Relative time] 3.88 {INR} Normal [facility] Comment on above: Performed By: #### P T ####[facility] [address]ixx[address] [place] [address]DrSkylar Leal INR GUIDELINES SEE BELOW Normal [facility] Comment on above: Result Comment: MALINA RED INR: 2.0 - 3.0 CONDITIONS NOT LISTED BELOW 2.5 - 3.5 FOR PROSTHETIC HEART VALVE REPLACEMENT 2.5 - 3.5 RECURRENT THROMBOSIS Performed By: #### P T ####[facility] Rpdryljhak37[address] [place] [phone]. Farhat Leal PT Coag (PPP) [Time] 38.1 s Critically high 9.0-11.6 [facility] Comment on above: Performed By: #### P T ####[facility] Uflgeyfykh034[address] [place] [id number]. Farhat Leal Glucose Glucometer (dC) [M ass/Vol]Ordered By: Sadia Aguilar on 04-14-2022 Glucose [Mass/Vol] 162 mg/dL [facility] Comment on above: Random Glucose Refer ence Range is dependent on time and content of last meal. Glucose of more than 200 mg/dL in a nonstressed, ambulatory subject supports the diagnosis of Diabetes Mellitus. Glucose Poct Glucometerson 0 04-14-2022 Commemt1 Glu2: Cleaned Meter Normal [facility] Comment on above: Result Comment: PERF ORMED BY: [facility] [address] [place] [address] PATHOLOGIST FILLER SHREDDER JOSE F ELLIOTT M.D. Performed By: #### G LULS #### Point of Care testing , Glucose [Mass/Vol] 162 mg/dL Normal [facility] Comment on above: Result Comment: [facility] Glucose Reference Range is dependent on time and content of last meal. Glucose of more than 200 mg/dL in a nonstressed, ambulatory subject supports the diagnosis of Diabetes Mellitus. Performed By: #### G LULS #### Point of Care testing , No Panel InformationOrdered By: Sadia Aguilar on 04-14-2022 Bedside Glucose Comment Glu2: cleaned meter [facility] MAGNESIUMon 04-13-2022 Magnesium [Mass/Vol] 1.7 mg/dL Critically low 1.8-2.4 [facility] Comment on above: Performed By: #### M HENRI Manzo ####[facility] Cmqncdnmeg[address] [place] [address]Dr. Farhat Leal PHOSPHORUSon 04-13-2022 Phosphate [Mass/Vol] 4.8 mg/dL Critically high 2.6-4.7 [facility] Comment on above: Performed By: #### M Anais PHOWard ####[facility] [address]sxhlzbwm[address] [place] [address]Dr. Farhat Leal PROTIMEon 04-13-2022 INR Coag (PPP) [Relative time] 3.16 {INR} Normal [facility] Comment on above: Performed By: #### P T ####[facility] Tvlietfvhz85[address] [place] [address]DrSkylar Leal INR GUIDELINES SEE BELOW Normal The [facility] Comment on above: Result Comment: MALINA RED INR: 2.0 - 3.0 CONDITIONS NOT LISTED BELOW 2.5 - 3.5 FOR PROSTHETIC HEART VALVE REPLACEMENT 2.5 - 3.5 RECURRENT THROMBOSIS Performed By: #### P T ####[facility] [address]fryjsij[address] [place] [address]DrSkylar Leal PT Coag (PPP) [Time] 31.4 s Critically high 9.0-11.6 [facility] Comment on above: Performed By: #### P T ####[facility] [address] [place], [place] [address]Ji. Farhat Leal MAGNESIUMon 03-11-2022 Magnesium [Mass/Vol] 1.6 mg/dL Critically low 1.8-2.4 [facility] Comment on above: Performed By: #### M G, PHOS ####[facility] Atwx[address]qbw[address] [place], [place] [address]Db. Farhat Leal PHOSPHORUSon 03-11-2022 Phosphate [Mass/Vol] 5.3 mg/dL Critically high 2.6-4.7 [facility] Comment on above: Performed By: #### M G, PHOS ####[facility] Xkteouhvjl7036 [place] [id number]. Farhat Leal CNOVon 02-26-2022 CNOV Office Visit (HONEY ) ALEX ALMONTE ([id number]) 1945 M TRN Date Time Provider Department 02/26/22 3:00 PM HINA PETERSON During your visit today, we recorded the following information about you: Temperature Pulse Blood pressure 96.6 degrees 75/minute 88/75 Hina Peterson MD, MD 02/26/2022 4:31 PM [facility] DEPARTMENT OF VASCULAR SURGERY OUTPATIENT VISIT DATE [...] his postop visit. He has been in assisted since then and has been recovering from his acute on chronic congestive heart failure. His wound has largely been healing without any issues and the maxwell and sutures were removed at the nursing facility. He comes here with a lateral wound eschar. He denies any fevers, chills, or any drainage. He is on anticoagulation. 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 Patient on mycophenolate mofetil , cellcept and prednisone Mixed hyperlipidemia due to type 2 diabetes mellitus ([facility]) 11/29/2021 Osteomyelitis ([facility]) 11/29/2021 Paroxysmal atrial fibrillation ([facility]) Renal transplant, status post SA node dysfunction ([facility]) s/p pacemaker Type 2 diabetes mellitus with diabetic neuropathy, with long-term current use of insulin ([facility]) 02/24/2002 PAST SURGICAL HISTORY Procedure Laterality [...] by mouth daily with lunch. Magic Cup Imperial with lunch aspirin, enteric coated (ASPIRIN, ENTERIC COATED) 81 mg EC tablet Take 1 tablet by (more content not included)... Normal [facility] PROTIMEon 02-25-2022 INR Coag (PPP) [Relative time] 1.31 {INR} Normal [facility] Comment on above: Performed By: #### P T ####[facility] [address] [place], [place] [address]Dr. Farhat Leal INR GUIDELINES SEE BELOW Normal [facility] Comment on above: Result Comment: MALINA RED INR: 2.0 - 3.0 CONDITIONS NOT LISTED BELOW 2.5 - 3.5 FOR PROSTHETIC HEART VALVE REPLACEMENT 2.5 - 3.5 RECURRENT THROMBOSIS Performed By: #### P T ####[facility] Vq[address]nw13[address] [place], [place] [address]Rn. Farhat Leal PT Coag (PPP) [Time] 13.7 s Critically high 9.0-11.6 [facility] Comment on above: Performed By: #### P T ####[facility] [address]ub[address] [place], [place] [address]VcSkylar Hassan 02-19-2022 CNPN Telephone (TXCTGL) ALEX ALMONTE ([id number]) 1945 M TRN Date Time Provider Department 02/19/22 AUGUSTA MEDRANO During your visit today, we recorded the following information about you: Augusta Medrano RN 02/19/2022 11:16 AM Signed Alex Almonte's nursing facility, [facility], called regarding elevated tacrolimus level (23.9). [...] by mouth daily with lunch. 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 DIABETES UNCOMPL ADULT-UNCONTRLLED [FLD3869] 02/24/2002 KIDNEY TRANSPLANT STATUS [Z94.0] 09/07/2003 PROPHYLACTIC IMMUNOTHERAPY [Z29.8] 07/30/2006 JAIL STEROIDS [GXC7888] 07/30/2006 VITAMIN D DEFICIENCY NOS [E55.9] 09/07/2008 [...] diabetes mellitus with diabetic peripher*11/29/2021 Atherosclerosis of inupiat artery of extremity w*11/29/2021 Malnutrition of moderate degree (HCC) [E44.0] 12/01/2021 Dermatitis associated with moisture [L30.8] 12/04/2021 Encounter Status:Closed by AUGUSTA MEDRANO on 02/19/22 [facility] 02-18-2022 CNPN Telephone (PODCCP) ALEX ALMONTE ([id number]) 1945 M TRN Date Time Provider Department 02/18/22 DEVON MOREIRA PODCCWilfred During your visit today, we recorded the following information about you: Yumikoev Denise 02/18/2022 3:16 PM Signed Reason for call: Mr. Almonte would like to request a sooner appointment with Dr. Peterson than 04/13/2022. Contact Name (if not the patient) Alex's nurse Home and cell number(Ask for Alex's nurse) [phone] Diagnosis 4 mo f/u wound check Best [...] by mouth daily with lunch. 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 DIABETES UNCOMPL ADULT-UNCONTRLLED [[id number]] 02/24/2002 KIDNEY TRANSPLANT STATUS [Z94.0] 09/07/2003 PROPHYLACTIC IMMUNOTHERAPY [Z29.8] 07/30/2006 PEDIATRICIAN ACTIVE PRACTICE STEROIDS [[id number]] 07/30/2006 VITAMIN D DEFICIENCY NOS [E55.9] 09/07/2008 [...] diabetes mellitus with diabetic peripher*11/29/2021 Atherosclerosis of inupiat artery of extremity w*11/29/2021 Malnutrition of moderate degree (HCC) [E44.0] 12/01/2021 Dermatitis associated with moisture [L30.8] 12/04/2021 Encounter Status:Closed by CHEASTY (more content not included)... Normal [facility] CNOVon 02-05-2022 CNOV Office Visit (TXCTGL ) ALEX ALMONTE ([id number]) 1945 M TRN Date Time Provider Department 02/05/22 8:20 AM [facility] TXP [facility]IN[facility] TXCTGL During your visit today, we recorded the following information about you: Temperature Pulse Blood pressure 96.7 degrees 79/minute 72/42 Asia Pike MD 02/05/2022 9:38 AM Signed [facility] Urologic and Kidney Ferron Transplant Follow up Portions of this note [...] snacks patient declined. Indra scale at [facility]: 166.2 lbs per patient. Bed sore on coccyx causing discomfort. Being changed regularly at [facility]- reported to be smaller around but still as deep. Patient not very up to date with medications. Patient brought paperwork from [facility] [employer] with all medications being received. Patient unsure if they have been drawing labs regularly. Last Tac from 01/19: 12.9 and K 5.9. In need of current labs. Lab orders will be sent with patient and follows as below: Kidney and Pancreas Transplant Standing Lab Orders [address] [place], [place] [address] February 05, 2022 Alex Almonte 1945 [id number] STANDARD TESTING: Diagnosis Codes: Z94.0 Kidney Transplant [...] AT YOUR LABORATORY FACILITY AND FAX TO [phone]. PLEASE CALL [phone]. Provider: Dr. Pike Current Outpatient Medications Medication [...] Take 237 (more content not included)... Normal [facility] PROTEIN CREATININE RATIOon 1 04-08-2021 Protein/Creatinine (U) [Mass ratio] 0.10 mg/mg <0.15 mg/mg [facility] PROTIMEon 02-05-2022 INR Coag (PPP) [Relative time] 2.90 {INR} Normal [facility] Comment on above: Performed By: #### P T ####[facility] [address]fw[address] [place] [address]Dr. Farhat Leal INR GUIDELINES SEE BELOW Normal [facility] Comment on above: Result Comment: MALINA RED INR: 2.0 - 3.0 CONDITIONS NOT LISTED BELOW 2.5 - 3.5 FOR PROSTHETIC HEART VALVE REPLACEMENT 2.5 - 3.5 RECURRENT THROMBOSIS Performed By: #### P T ####[facility] [address] [place], [place] [address]Vw. Farhat Leal PT Coag (PPP) [Time] 29.2 s Critically high 9.0-11.6 The [facility] Comment on above: Performed By: #### P T ####[facility] Fszmriloij4348 [place] [id number]. Farhat Leal Prot/Creat Uron 02-05-2022 Protein/Creatinine (U) [Mass ratio] 0.10 mg/mg Normal <0.15 [facility] Comment on above: Order Comment: Speci men Type: URINE SPECIMENOrdering Facility: [facility] Address: [address] [place] [address] Result Comment: Adul t Proteinuria Categories: <0.15 mg/mg is considered normal to mildly increased 0.15 - 0.50 mg/mg is considered moderately increased >0.50 mg/mg is considered severely increased KDIGO. (2013). KDIGO 2012 Clinical Practice Guideline for the Evaluation and Management of Chronic Kidney Disease. Official Journal of the International Society of Nephrology, 3(1), 1-150. Performed By: #### 2 890-2 ####[facility] LABCLIA [id number] [place] [address] [place] [facility] Protein/Creatinine (U) [Mass ratio]on 02-05-2022 Creatinine (U) [Mass/Vol] 86.9 mg/dL 20.0 - 300.0 mg/dL [facility] Protein (U) [Mass/Vol] 9 mg/dL 0 - 20 mg/dL [facility] Creatinine (U) [Mass/Vol] 86.9 mg/dL Normal 20.0-300.0 [facility] Comment on above: Order Comment: Speci men Type: URINE SPECIMENOrdering Facility: [facility] Address: [address] [place], [place] [id number] Performed By: #### 2 890-2 ####[facility] LABCLIA [id number] [place] [id number] [place] Protein (U) [Mass/Vol] 9 mg/dL Normal 0-20 Cl [facility] Comment on above: Order Comment: Speci men Type: URINE SPECIMENOrdering Facility: [facility] Address: [address] [place] [address] Performed By: #### 2 890-2 ####[facility] LABCLIA [id number] [place] [address] [place] URINALYSIS, DIPSTICK ONLYon 02-05-2022 Bilirubin Ql (U) Negative Normal Negative [facility] Comment on above: Order Comment: Speci men Type: URINE SPECIMEN Ordering Facility: [facility] Address: [address] [place] [address] Performed By: #### U A #### [facility] CLIA [id number] [address] [place] [address] [place] Clarity (Unsp spec) Clear Normal Clear [facility] Comment on above: Order Comment: Speci men Type: URINE SPECIMEN Ordering Facility: [facility] Address: [address] [place] [address] Performed By: #### U A #### [facility] CLIA [id number] [facility] [address] STATES OF [facility] Color (U) Yellow Normal Yellow [facility] Comment on above: Order Comment: Speci men Type: URINE SPECIMEN Ordering Facility: [facility] Address: [address] [place], [place] [id number] Performed By: #### U A #### [facility] CLIA [id number] [facility] [place] [address] [place] Glucose Test strip (U) [Mass/Vol] 3+ Abnormal Trace, Negative [facility] Comment on above: Order Comment: Speci men Type: URINE SPECIMEN Ordering Facility: [facility] Address: [address] [place] [address] Performed By: #### U A #### [facility] CLIA [id number] [address] [place] [address] [place] Hemoglobin Ql (U) Negative Normal Negative, Trace [facility] Comment on above: Order Comment: Speci men Type: URINE SPECIMEN Ordering Facility: [facility] Address: [address] [place] [address] Performed By: #### U A #### [facility] CLIA [id number] [address] [place] [address] [place] Ketones Ql (U) Trace Normal Negative, Trace [facility] Comment on above: Order Comment: Speci men Type: URINE SPECIMEN Ordering Facility: [facility] Address: [address] [place] [address] Performed By: #### U A #### [facility] CLIA [id number] [address] [place] [address] [place] Leukocyte esterase Test strip Ql (U) Negative Normal Negative, 25 Loraine/mL [facility] Comment on above: Order Comment: Speci men Type: URINE SPECIMEN Ordering Facility: [facility] Address: [address] [place] [address] Performed By: #### U A #### [facility] CLIA [id number] [address] [place] [address] [place] Nitrite Ql (U) Negative Normal Negative [facility] Comment on above: Order Comment: Speci men Type: URINE SPECIMEN Ordering Facility: [facility] Address: [address] [place] [address] Performed By: #### U A #### [facility] CLIA [id number] [address] [place] [address] [place] pH (U) 5.5 [pH] Normal 5.0-8.0 [facility] Comment on above: Order Comment: Speci men Type: URINE SPECIMEN Ordering Facility: [facility] Address: [address] [place], [place] [id number] Performed By: #### U A #### [facility] CLIA [id number] [address] [place] [address] [place] Protein (U) [Mass/Vol] Negative Normal Trace , Negative [facility] Comment on above: Order Comment: Speci men Type: URINE SPECIMEN Ordering Facility: [facility] Address: [address] [place] [address] Performed By: #### U A #### [facility] CLIA [id number] [address] [place] [address] [place] Specific gravity (U) [Rel density] 1.014 Normal 1.005-1.030 [facility] Comment on above: Order Comment: Speci men Type: URINE SPECIMEN Ordering Facility: [facility] Address: [address] [place] [address] Performed By: #### U A #### [facility] CLIA [id number] [address] [place] [address] [place] Urobilinogen Ql (U) 1+ Abnormal Negative [facility] Comment on above: Order Comment: Speci men Type: URINE SPECIMEN Ordering Facility: [facility] Address: [address] [place] [address] Performed By: #### U A #### [facility] CLIA [id number] [address] [place] [address] [place] Bilirubin Ql (U) Negative Negative [facility] Clarity (Unsp spec) Clear Clear [facility] Color (U) Yellow Yellow [facility] Glucose Test strip (U) [Mass/Vol] 3+ Abnormal Trace, Negative [facility] Hemoglobin Ql (U) Negative Negative, Trace [facility] Ketones Ql (U) Trace Negative, Trace [facility] Leukocyte esterase Test strip Ql (U) Negative Negative, 25 Loraine/mL [facility] Nitrite Ql (U) Negative Negative [facility] pH (U) 5.5 [pH] 5.0 - 8.0 [facility] Protein (U) [Mass/Vol] Negative Trace , Negative [facility] Specific gravity (U) [Rel density] 1.014 1.005 - 1.030 [facility] Urobilinogen Ql (U) 1+ Abnormal Negative [facility] FK506 (TACROLIMUS) WHOLE BLO ODon 01-29-2022 Tacrolimus (FK506), Blood 11.1 ng/mL Normal 2.0-20.0 [facility] Comment on above: Result Comment: Trou gh (immediately following transplant) 15.0 . Trough (steady state, 2 weeks or more after transplant): 3.0 - 8.0 . Performed by LC-MS/MS technology. Performed By: #### F K506T ####[facility] [address] [place], [place] [address]Dr. Farhat Leal PHOSPHORUSon 01-26-2022 Phosphate [Mass/Vol] 4.1 mg/dL Normal 2.6-4.7 [facility] Comment on above: Performed By: #### C CAAR PHOS ####[facility] X[address] [place], [place] [address]Dr. Farhat Leal PROF 14(COMP METB)on 022 Albumin [Mass/Vol] 2.1 g/dL Critically low 3.4-5.0 [facility] Comment on above: Performed By: #### C CARA, PHOS ####[facility] [address] [place], [place] [address]Dr. Farhat Leal Albumin/Globulin [Mass ratio] 0.6 {ratio} Normal [facility] Comment on above: Performed By: #### C CARA, PHOS ####[facility] Wnkslsrf[address] [place], [place] [address]Dr. Farhat Leal ALP [Catalytic activity/Vol] 89 U/L Normal 46-116 [facility] Comment on above: Performed By: #### C CARA, PHOS ####[facility] Chwe[address] [place], [place] [address]Dr. Farhat Leal ALT [Catalytic activity/Vol] 27 U/L Normal 16-63 [facility] Comment on above: Performed By: #### C CARA, PHOS ####[facility] [address] [place], [place] [address]Dr. Farhat Leal Anion gap [Moles/Vol] 12.3 mmol/L Normal [facility] Comment on above: Performed By: #### C CARA, PHOS ####[facility] [address] [place], [place] [address]Dr. Farhat Leal AST [Catalytic activity/Vol] 53 U/L Critically high 15-37 [facility] Comment on above: Performed By: #### C MP, PHOS ####[facility] Tw[address] [place], [place] [address]Dr. Farhat Leal Bilirubin [Mass/Vol] 0.6 mg/dL Normal 0.2-1.0 [facility] Comment on above: Performed By: #### C CARA, PHOS ####[facility] [address]id[address]nt[address] [place], [place] [address]Dr. Farhat Leal Calcium [Mass/Vol] 8.0 mg/dL Critically low 8.5-10.1 [facility] Comment on above: Performed By: #### C CARA, PHOS ####[facility] H[address]tre[address] [place], [place] [address]Dr. Farhat Leal Chloride [Moles/Vol] 97 mmol/L Critically low 98-107 [facility] Comment on above: Performed By: #### C CARA, PHOS ####[facility] [address] [place], [place] [address]Dr. Farhat Leal CO2 [Moles/Vol] 26.6 mmol/L Normal 21.0-32.0 [facility] Comment on above: Performed By: #### C CARA, PHOS ####[facility] Uknsffjoq[address] [place], [place] [address]Dr. Farhat Leal Creatinine [Mass/Vol] 1.03 mg/dL Normal 0.70-1.30 [facility] Comment on above: Performed By: #### C CARA, PHOS ####[facility] Qt[address]zxigbf[address] [place], [place] [address]Dr. Farhat Leal EGFR-AF ETHIOPIAN >60 Normal >=60 [facility] Comment on above: Performed By: #### C CARA, PHOS ####[facility] [address] [place] [id number]. Farhat Leal EGFR-NON AF ETHIOPIAN >60 Normal >=60 [facility] Comment on above: Performed By: #### C MP, PHOS ####[facility] [address] [place] [phone]. Farhat Leal Globulin (S) [Mass/Vol] 3.7 g/dL Normal [facility] Comment on above: Performed By: #### C MP, PHOS ####[facility] [address] [place] [address]Dr. Farhat Leal Glucose [Mass/Vol] 287 mg/dL Critically high 74-106 [facility] Comment on above: Performed By: #### C CARA, PHOS ####[facility] [address] [place] [address]Dr. Farhat Leal Potassium [Moles/Vol] 3.9 mmol/L Normal 3.5-5.1 [facility] Comment on above: Performed By: #### C CARA, PHOS ####[facility] [address] [place] [address]Dr. Farhat Leal Protein [Mass/Vol] 5.8 g/dL Critically low 6.4-8.2 Th [facility] Comment on above: Performed By: #### C CARA, PHOS ####[facility] [address] [place] [address]Dr. Farhat Leal Sodium [Moles/Vol] 132 mmol/L Critically low 136-145 Th [facility] Comment on above: Performed By: #### C CARA, PHOS ####[facility] [address] [place] [address]Dr. Farhat Leal Urea nitrogen [Mass/Vol] 23.0 mg/dL Critically high 7.0-18.0 [facility] Comment on above: Performed By: #### C CARA, PHOS ####[facility] [address] [place] [address]Dr. Farhat Leal Urea nitrogen/Creatinine [Mass ratio] 22.3 mg/mg Normal [facility] Comment on above: Performed By: #### C MP, PHOS ####[facility] [address] [place] [phone]. Farhat Leal FK506 (TACROLIMUS) WHOLE BLO ODon 01-21-2022 Tacrolimus (FK506), Blood 12.2 ng/mL Normal 2.0-20.0 [facility] Comment on above: Result Comment: Trou gh (immediately following transplant) 15.0 . Trough (steady state, 2 weeks or more after transplant): 3.0 - 8.0 . Performed by LC-MS/MS technology. Performed By: #### F K506T ####[facility] [address] [place] [phone]. Farhat Leal ACID FAST SMEAR AND CXon Acid Fast Culture Negative Normal [facility] Comment on above: Result Comment: No a abdiel fast bacilli isolated after 6 weeks. Performed By: #### A FB ####[facility] [address] [place] [phone]. Farhat Leal Acid Fast Smear Negative Normal [facility] Comment on above: Performed By: #### A FB ####[facility] [address] [place] [address]Dr. Farhat Leal [employer] Specimen Processing Tissue Grinding Normal [facility] Comment on above: Performed By: #### A FB ####[facility] [address] [place] [phone]. Farhat Leal [facility] 01-20-2022 DIAMANTEN Telephone (KIMBERLY) ALEX ALMONTE ([id number]) 1945 [address] [facility] Date Time Provider Department 01/20/22 VAN OLIVAREZ During your visit today, we recorded the following information about you: Van Olivarez APRN.CNP 01/20/2022 1:14 PM Signed Labs noted from yesterday. Pt is currently residing at [facility], I spoke with the Nurse, [...] by mouth daily with lunch. 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 No family history on file Normal [facility] PROF 14(COMP METB)on 022 Albumin [Mass/Vol] 1.9 g/dL Critically low 3.4-5.0 Th [facility] Comment on above: Performed By: #### C MP ####[facility] [address] [place] [address]DrSkylar Leal Albumin/Globulin [Mass ratio] 0.5 {ratio} Normal [facility] Comment on above: Performed By: #### C MP ####[facility] [address] [place] [address]DrSkylar Leal ALP [Catalytic activity/Vol] 78 U/L Normal 46-116 [facility] Comment on above: Performed By: #### C MP ####[facility] [address]uzoddw[address] [place] [address]DrSkylar Leal ALT [Catalytic activity/Vol] 22 U/L Normal 16-63 [facility] Comment on above: Performed By: #### C MP ####[facility] S[address] [place] [address]Dr. Farhat Leal Anion gap [Moles/Vol] 8.0 mmol/L Normal [facility] Comment on above: Performed By: #### C MP ####[facility] [address]wr[address] [place] [address]Dr. Farhat Leal AST [Catalytic activity/Vol] 92 U/L Critically high 15-37 [facility] Comment on above: Performed By: #### C MP ####[facility] [address] [place], [place] [address]Dr. Farhat Leal Bilirubin [Mass/Vol] 0.7 mg/dL Normal 0.2-1.0 [facility] Comment on above: Performed By: #### C MP ####[facility] [address] [place], [place] [address]Dr. Farhat Leal Calcium [Mass/Vol] 7.8 mg/dL Critically low 8.5-10.1 Th [facility] Comment on above: Performed By: #### C MP ####[facility] [address] [place], [place] [address]Dr. Farhat Leal Chloride [Moles/Vol] 99 mmol/L Normal 98-107 [facility] Comment on above: Performed By: #### C MP ####[facility] [address]tr[address] [place], [place] [address]Dr. Farhat Leal CO2 [Moles/Vol] 30.9 mmol/L Normal 21.0-32.0 [facility] Comment on above: Performed By: #### C MP ####[facility] [address]uc[address]ep[address] [place], [place] [address]Dr. Farhat Leal Creatinine [Mass/Vol] 0.95 mg/dL Normal 0.70-1.30 [facility] Comment on above: Performed By: #### C MP ####[facility] [address]jva[address] [place], [place] [address]Dr. Madelynlorri Elvis EGFR-AF ETHIOPIAN >60 Normal >=60 [facility] Comment on above: Performed By: #### C MP ####[facility] [address] [place] [phone]. Farhat Leal EGFR-NON AF ETHIOPIAN >60 Normal >=60 [facility] Comment on above: Performed By: #### C MP ####[facility] [address]rsxe[address] [place] [phone]. Farhat Leal Globulin (S) [Mass/Vol] 3.9 g/dL Normal [facility] Comment on above: Performed By: #### C MP ####[facility] R[address]zvizu[address] [place] [address]Dr. Farhat Leal Glucose [Mass/Vol] 124 mg/dL Critically high 74-106 T [facility] Comment on above: Performed By: #### C MP ####[facility] X[address]remhr[address] [place] [address]Dr. Farhat Leal Potassium [Moles/Vol] 5.9 mmol/L Critically high 3.5-5.1 [facility] Comment on above: Performed By: #### C MP ####[facility] Sm[address] [place], [place] [address]Dr. Farhat Leal Protein [Mass/Vol] 5.8 g/dL Critically low 6.4-8.2 Th [facility] Comment on above: Performed By: #### C MP ####[facility] Z[address]troalkr[address] [place], [place] [address]Dr. Farhat Leal Sodium [Moles/Vol] 132 mmol/L Critically low 136-145 Th [facility] Comment on above: Performed By: #### C MP ####[facility] Qfpgvodmbw[address] [place] [address]Dr. Farhat Leal Urea nitrogen [Mass/Vol] 18.0 mg/dL Normal 7.0-18.0 [facility] Comment on above: Performed By: #### C MP ####[facility] [address]zhqsvwg[address] [place] [address]Dr. Farhat Leal Urea nitrogen/Creatinine [Mass ratio] 18.9 mg/mg Normal [facility] Comment on above: Performed By: #### C MP ####[facility] Jvtrwiaxtn[address] [place] [phone]. Farhat Leal INR (POC)on 01-12-2022 INR Coag (PPP) [Relative time] 2.6 {INR} High 0.8 - 1.2 [facility] Internal Quality Check Acceptable Cl [facility] ACID FAST SMEAR AND CXon Acid Fast Culture Negative Normal [facility] Comment on above: Result Comment: No a abdiel fast bacilli isolated after 6 weeks. Performed By: #### A FB ####[facility] [address] [place], [place] [id number]. Madelynlorri Leal Acid Fast Smear Negative Normal [facility] Comment on above: Performed By: #### A FB ####[facility] [address] [place], [place] [address]Dr. Farhat Leal [employer] Specimen Processing Direct Inoculation Normal [facility] Comment on above: Performed By: #### A FB ####[facility] [address] [place], [place] [address]Dr. Madelynlorri Leal ACID FAST SMEAR AND CXon Acid Fast Culture Negative Normal [facility] Comment on above: Result Comment: No a abdiel fast bacilli isolated after 6 weeks. Performed By: #### A FB ####[facility] [address] [place], [place] [address]Dr. Farhat Leal Acid Fast Smear Negative Normal [facility] Comment on above: Performed By: #### A FB ####[facility] [address]nbjs[address] [place], [place] [address]Dr. Farhat Leal [employer] Specimen Processing Tissue Grinding Normal [facility] Comment on above: Performed By: #### A FB ####[facility] [address]xe[address] [place], [place] [address]Dr. Farhat Leal FUNGAL CULTUREon 01-02-2022 Fungus (Mycology) Culture Final report Normal [facility] Comment on above: Performed By: #### C XFUN ####[facility] [address] [place], [place] [address]Dr. aFrhat Leal Fungus Stain Final report Normal [facility] Comment on above: Performed By: #### C XFUN ####[facility] [address] [place] [address]. Madelynlorri Leal Result 1 Comment Normal [facility] Comment on above: Result Comment: ANNI/ Calcofluor preparation: no fungus observed. Performed By: #### C XFUN ####[facility] [address] [place] [address]. Farhat Leal Result Comment: No y east or mold isolated after 4 weeks. FK506 (TACROLIMUS) WHOLE BLO ODon 12-31-2021 Tacrolimus (FK506), Blood 7.7 ng/mL Normal 2.0-20.0 [facility] Comment on above: Result Comment: Trou gh (immediately following transplant) 15.0 . Trough (steady state, 2 weeks or more after transplant): 3.0 - 8.0 . Performed by LC-MS/MS technology. Performed By: #### F K506T ####[facility] [address] [place] [address]. Farhat Leal HEMOGRAM AND PLATELon 2021 Hematocrit (Bld) [Volume fraction] 27.1 % Critically low 42.0-54.0 [facility] Comment on above: Performed By: #### H H ####[facility] [address] [place] [address]. Farhat Leal Hemoglobin (Bld) [Mass/Vol] 8.7 g/dL Critically low 14.0-18.0 [facility] Comment on above: Performed By: #### H H ####[facility] [address] [place] [address]. Farhat Leal MCH (RBC) [Entitic mass] 30.3 pg Normal 25.9-34.0 [facility] Comment on above: Performed By: #### H H ####[facility] [address] [place] [address]. Farhat Leal MCHC (RBC) [Mass/Vol] 32.1 g/dL Normal 29.9-35.2 [facility] Comment on above: Performed By: #### H H ####[facility] [address] [place] [address]. Farhat Leal MCV (RBC) [Entitic vol] 94.4 fL Critically high 80.0-94.0 [facility] Comment on above: Performed By: #### H H ####[facility] [address] [place] [address]Dr. Farhat Leal PLT 355 103/ul Normal 150-450 [facility] Comment on above: Performed By: #### H H ####[facility] [address]oxy[address] [place] [address]Dr. Farhat Leal RBC 2.87 106/ul Critically low 4.70-6.10 [place] Comment on above: Performed By: #### H H ####[facility] [address] [place] [address]Dr. Farhat Leal WBC 6.0 103/ul Normal 4.0-11.0 [facility] Comment on above: Performed By: #### H H ####[facility] [address] [place] [address]Dr. Farhat Leal PHOSPHORUSon 12-29-2021 Phosphate [Mass/Vol] 2.5 mg/dL Critically low 2.6-4.7 [facility] Comment on above: Performed By: #### P HOS, CMP ####[facility] [address] [place] [address]DrSkylar Farhat Elvis PROF 14(COMP METB)on 022 Albumin [Mass/Vol] 1.7 g/dL Critically low 3.4-5.0 [facility] Comment on above: Performed By: #### P HOS, CMP ####[facility] [address] [place] [address]Dr. Farhat Leal Albumin/Globulin [Mass ratio] 0.5 {ratio} Normal [facility] Comment on above: Performed By: #### P HOS, CMP ####[facility] [address] [place] [address]Dr. Farhat Leal ALP [Catalytic activity/Vol] 78 U/L Normal 46-116 [facility] Comment on above: Performed By: #### P HOS, CMP ####[facility] Usxxovvnxx[address] [place] [address]Dr. Farhat Leal ALT [Catalytic activity/Vol] 12 U/L Critically low 16-63 [facility] Comment on above: Performed By: #### P HOS, CMP ####[facility] Qiuz[address]eci[address] [place], [place] [address]Dr. Farhat Leal Anion gap [Moles/Vol] 5.1 mmol/L Normal [facility] Comment on above: Performed By: #### P HOS, CMP ####[facility] [address]cytns[address] [place], [place] [address]Dr. Farhat Leal AST [Catalytic activity/Vol] 22 U/L Normal 15-37 [facility] Comment on above: Performed By: #### P HOS, CMP ####[facility] [address]oth[address] [place], [place] [address]Dr. Farhat Leal Bilirubin [Mass/Vol] 0.6 mg/dL Normal 0.2-1.0 [facility] Comment on above: Performed By: #### P HOS, CMP ####[facility] [address] [place], [place] [address]Dr. Farhat Leal Calcium [Mass/Vol] 8.1 mg/dL Critically low 8.5-10.1 Th [facility] Comment on above: Performed By: #### P HOS, CMP ####[facility] [address]ws[address] [place], [place] [address]Dr. Farhat Leal Chloride [Moles/Vol] 100 mmol/L Normal 98-107 [facility] Comment on above: Performed By: #### P HOS, CMP ####[facility] [address]ibxjlxb[address] [place], [place] [address]Dr. Farhat Leal CO2 [Moles/Vol] 34.2 mmol/L Critically high 21.0-32.0 [facility] Comment on above: Performed By: #### P HOS, CMP ####[facility] [address]jxu[address] [place], [place] [address]Dr. Farhat Leal Creatinine [Mass/Vol] 0.92 mg/dL Normal 0.70-1.30 [facility] Comment on above: Performed By: #### P HOS, CMP ####[facility] [address]xi[address] [place] [phone]. Farhat Leal EGFR-AF ETHIOPIAN >60 Normal >=60 [facility] Comment on above: Performed By: #### P HOS, CMP ####[facility] [address]ixcgpv[address] [place] [phone]. Farhat Leal EGFR-NON AF ETHIOPIAN >60 Normal >=60 [facility] Comment on above: Performed By: #### P HOS, CMP ####[facility] [address] [place] [phone]. Farhat Leal Globulin (S) [Mass/Vol] 3.3 g/dL Normal [facility] Comment on above: Performed By: #### P HOS, CMP ####[facility] F[address]jfej[address] [place] [address]Dr. Farhat Leal Glucose [Mass/Vol] 116 mg/dL Critically high 74-106 [facility] Comment on above: Performed By: #### P HOS, CMP ####[facility] [address]izwbbl[address] [place] [address]Dr. Farhat Leal Potassium [Moles/Vol] 3.3 mmol/L Critically low 3.5-5.1 [facility] Comment on above: Performed By: #### P HOS, CMP ####[facility] [address]whnahof[address] [place] [phone]. Farhat Leal Protein [Mass/Vol] 5.0 g/dL Critically low 6.4-8.2 [facility] Comment on above: Performed By: #### P HOS, CMP ####[facility] Fxvgknqudd[address] [place] [address]Dr. Farhat Leal Sodium [Moles/Vol] 136 mmol/L Normal 136-145 [facility] Comment on above: Performed By: #### P HOS, CMP ####[facility] [address]izmtmbhhz[address] [place] [phone]. Farhat Leal Urea nitrogen [Mass/Vol] 14.0 mg/dL Normal 7.0-18.0 [facility] Comment on above: Performed By: #### P HOS, CMP ####[facility] [address]ix[address]fbhk[address] [address] [place], [place] [address]DrSkylar Leal Urea nitrogen/Creatinine [Mass ratio] 15.2 mg/mg Normal [facility] Comment on above: Performed By: #### P HOS, CMP ####[facility] Zhnuhqnqjo[address] [place], [place] [address]DrSkylar Leal PROTIMEon 12-29-2021 INR Coag (PPP) [Relative time] 1.26 {INR} Normal [facility] Comment on above: Performed By: #### P T ####[facility] Admmzyppuh[address] [place], [place] [address]Dr. Farhat Leal INR GUIDELINES SEE BELOW Normal The [facility] Comment on above: Result Comment: MALINA RED INR: 2.0 - 3.0 CONDITIONS NOT LISTED BELOW 2.5 - 3.5 FOR PROSTHETIC HEART VALVE REPLACEMENT 2.5 - 3.5 RECURRENT THROMBOSIS Performed By: #### P T ####[facility] Pwhvrwkmlo[address] [place], [place] [address]Dr. Farhat Leal PT Coag (PPP) [Time] 13.4 s Critically high 9.0-11.6 [facility] Comment on above: Performed By: #### P T ####[facility] Aqmiyvgcle[address] [place], [place] [address]Dr. Farhat Leal XR MODIFIED BARIUM SWALLOWon 12-25-2021 XR MODIFIED BARIUM SWALLOW Normal [facility] FUNGAL CULTUREon 12-24-2021 Fungus (Mycology) Culture Final report Normal [facility] Comment on above: Performed By: #### C XFUN ####[facility] Xcmzyiehht[address] [place], [place] [address]Dr. Farhat Leal Fungus Stain Final report Normal [facility] Comment on above: Performed By: #### C XFUN ####[facility] Gwfbgrpwoc[address] [place], [place] [address]DrSkylar Leal Result 1 Comment Normal [facility] Comment on above: Result Comment: ANNI/ Calcofluor preparation: no fungus observed. Performed By: #### C XFUN ####[facility] Txgnpyxwfk358[address] [place], [place] [address]Dr. Farhat Leal Result Comment: No y east or mold isolated after 4 weeks. VANCOMYCIN TROUGHon 12-21-19 VANCOMYCIN TROUGH 14.4 ug/ml Normal 5.0-20.0 [facility] Comment on above: Performed By: #### V ANCT ####[facility] Lykcuzidpm[address] [place], [place] [address]Dr. Farhat Leal CBC AUTO DIFFon 12-14-2021 BASO # 0.0 103/ul Normal 0.0-0.1 [facility] Comment on above: Performed By: #### C BC ####[facility] Fjgconmamf[address] [place], [place] [address]Dr. Farhat Leal Basophils/100 WBC (Bld) 0.2 % Normal 0.2-2.0 [facility] Comment on above: Performed By: #### C BC ####[facility] Ccsxqyzgoh[address] [place], [place] [address]Dr. Farhat Leal EO # 0.2 103/ul Normal 0.0-0.7 [facility] Comment on above: Performed By: #### C BC ####[facility] Pwmakevvqi9[address] [place], [place] [address]Dr. Farhat Leal Eosinophils/100 WBC (Bld) 2.1 % Normal 0.9-7.0 [facility] Comment on above: Performed By: #### C BC ####[facility] Ulpvdpnqac04[address] [place], [place] [address]Dr. Farhat Leal Erythrocyte distribution width (RBC) [Ratio] 18.2 % Critically high 11.0-15.0 [facility] Comment on above: Performed By: #### C BC ####[facility] Peltnaqxma[address] [place], [place] [address]DrSkylar Leal Hematocrit (Bld) [Volume fraction] 25.8 % Critically low 42.0-54.0 [facility] Comment on above: Performed By: #### C BC ####[facility] Vxwqiukbwb[address] [place], [place] [address]Dr. Farhat Leal Hemoglobin (Bld) [Mass/Vol] 8.0 g/dL Critically low 14.0-18.0 [facility] Comment on above: Performed By: #### C BC ####[facility] [address] [place] [address]DrSkylar Leal IG # 0.08 10e3/ul Critically high 0.00-0.03 [facility] Comment on above: Performed By: #### C BC ####[facility] Vowvqciyew[address] [place], [place] [address]DrSkylar Leal IG % 0.7 % Critically high 0.0-0.5 [facility] Comment on above: Performed By: #### C BC ####[facility] Rblvmxymjb[address] [place] [address]DrSkylar Leal LYMPH # 0.9 103/ul Critically low 1.2-3.[address] [facility] Comment on above: Performed By: #### C BC ####[facility] Wdywbobtew04[address] [place], [place] [address]DrSkylar Leal Lymphocytes/100 WBC (Bld) 8.7 % Critically low 20.5-60.0 [facility] Comment on above: Performed By: #### C BC ####[facility] Ghzmbxldgf[address] [place], [place] [address]DrSkylar Leal MANUAL DIFF REQ NO Normal [facility] Comment on above: Performed By: #### C BC ####[facility] Vgbsgtttrr[address] [place], [place] [address]DrSkylar Leal MCH (RBC) [Entitic mass] 30.0 pg Normal 25.9-34.0 [facility] Comment on above: Performed By: #### C BC ####[facility] Wqqgzxpric8[address] [place], [place] [address]DrSkylar Leal MCHC (RBC) [Mass/Vol] 31.0 g/dL Normal 29.9-35.2 [facility] Comment on above: Performed By: #### C BC ####[facility] Ukpbykhulp8[address] [place], [place] [address]DrSkylar Leal MCV (RBC) [Entitic vol] 96.6 fL Critically high 80.0-94.0 [facility] Comment on above: Performed By: #### C BC ####[facility] [address] [place] [id number] Leal MONO # 0.7 103/ul Normal 0.3-0.8 [facility] Comment on above: Performed By: #### C BC ####[facility] Qlcntwupan[address] [place], [place] [address]DrSkylar Farhat Leal Monocytes/100 WBC (Bld) 6.7 % Normal 1.7-12.0 [facility] Comment on above: Performed By: #### C BC ####[facility] Opnuhircoh[address] [place], [place] [address]DrSkylar Farhat Leal NEUT # 8.8 103/ul Critically high 1.4-6.5 [facility] Comment on above: Performed By: #### C BC ####[facility] Ndvwzvimaq[address] [place], [place] [address]DrSkylar Farhat Leal Neutrophils/100 WBC (Bld) 81.6 % Critically high 43.0-75.0 [facility] Comment on above: Performed By: #### C BC ####[facility] Dfnwarxrcv[address] [place], [place] [address]DrSkylar Farhat Leal Platelet mean volume (Bld) [Entitic vol] 10.5 fL Normal 9.5-13.5 [facility] Comment on above: Performed By: #### C BC ####[facility] Niedxqivuc[address] [place], [place] [id number]. Farhat Leal PLT 285 103/ul Normal 150-450 [facility] Comment on above: Performed By: #### C BC ####[facility] Gjnecittkq[address] [place], [place] [id number] Farhat Elvis RBC 2.67 106/ul Critically low 4.70-6.10 [facility] Comment on above: Performed By: #### C BC ####[facility] Gzclrxezrz[address] [place], [place] [address]DrSkylar Farhat Leal WBC 10.7 103/ul Normal 4.0-11.0 [facility] Comment on above: Performed By: #### C BC ####[facility] [address]wfm[address] [place] [address]DrSkylar Madelynlorri Leal PROF CHEM 8 (BAS METB)on Anion gap [Moles/Vol] 12.4 mmol/L Normal [facility] Comment on above: Performed By: #### B MP ####[facility] [address] [place] [address]Dr. Farhat Leal Calcium [Mass/Vol] 7.8 mg/dL Critically low 8.5-10.1 [facility] Comment on above: Performed By: #### B MP ####[facility] Zndfwrubdm[address] [place], [place] [address]Dr. Farhat Leal Chloride [Moles/Vol] 102 mmol/L Normal 98-107 [facility] Comment on above: Performed By: #### B MP ####[facility] Uhejdkmqtf966[address] [place], [place] [address]Dr. Farhat Leal CO2 [Moles/Vol] 28.1 mmol/L Normal 21.0-32.0 [facility] Comment on above: Performed By: #### B MP ####[facility] Apvoqdoaoa[address] [place], [place] [address]Dr. Farhat Leal Creatinine [Mass/Vol] 1.24 mg/dL Normal 0.70-1.30 [facility] Comment on above: Performed By: #### B MP ####[facility] [address] [place] [address]Dr. Farhat Leal EGFR-AF ETHIOPIAN >60 Normal >=60 [facility] Comment on above: Performed By: #### B MP ####[facility] Uyczkmfnag[address] [place], [place] [address]Dr. Farhat Leal EGFR-NON AF ETHIOPIAN 57 mL/min/1.73m2 Critically low >=60 [facility] Comment on above: Performed By: #### B MP ####[facility] Jnvfelypba[address] [place], [place] [address]Dr. Farhat Leal Glucose [Mass/Vol] 296 mg/dL Critically high 74-106 [facility] Comment on above: Performed By: #### B MP ####[facility] Edcyrtxpwu[address] [place], [place] [address]Dr. Farhat Leal Potassium [Moles/Vol] 3.5 mmol/L Normal 3.5-5.1 [facility] Comment on above: Performed By: #### B MP ####[facility] Ixljxsdzvd[address] [place], [place] [address]Dr. Farhat Leal Sodium [Moles/Vol] 139 mmol/L Normal 136-145 [facility] Comment on above: Performed By: #### B MP ####[facility] Ovqbocqszz[address] [place], [place] [address]Dr. Farhat Leal Urea nitrogen [Mass/Vol] 27.0 mg/dL Critically high 7.0-18.0 [facility] Comment on above: Performed By: #### B MP ####[facility] Ejznbklacp[address] [place], [place] [address]Dr. Farhat Leal Urea nitrogen/Creatinine [Mass ratio] 21.8 mg/mg Normal [facility] Comment on above: Performed By: #### B MP ####[facility] Phznvkgwwc[address] [place], [place] [address]Dr. Farhat Leal PROTIMEon 12-14-2021 INR Coag (PPP) [Relative time] 3.36 {INR} Normal [facility] Comment on above: Performed By: #### P T ####[facility] Thrfnmasrq[address] [place], [place] [address]Dr. Farhat Leal INR GUIDELINES SEE BELOW Normal [facility] Comment on above: Result Comment: MALINA RED INR: 2.0 - 3.0 CONDITIONS NOT LISTED BELOW 2.5 - 3.5 FOR PROSTHETIC HEART VALVE REPLACEMENT 2.5 - 3.5 RECURRENT THROMBOSIS Performed By: #### P T ####[facility] Amomkgszrq[address] [place], [place] [address]Dr. Farhat Leal PT Coag (PPP) [Time] 33.5 s Critically high 9.0-11.6 [facility] Comment on above: Performed By: #### P T ####[facility] [address] [place], [place] [address]XgSkylar Leal XR CHEST 1 Von 12-14-2021 XR CHEST 1 V Normal [facility] No Panel Informationon 12-01 BLANK _ [facility] Implant Date 04/22/2012 [facility] CHECKon AMS Duration (ms) 5 of 8 [facility] AMS Fallback Rate (bpm) DDIR [facility] AV Delay Adaptive Paced Minimum (ms) 300 ms [facility] AV Delay Adaptive Rate Maximum (bpm) 130 {beats}/min [facility] AV Delay Adaptive Rate Minimum (bpm) 70 {beats}/min [facility] AV Delay Adaptive Sensed Minimum (ms) 300 ms [facility] AV Delay Paced (ms) 300 ms [facility] AV Delay Sensed (ms) 300 ms [facility] Jaciel LV Pacing Polarity Unknown [facility] Jaciel LV Sensing Polarity Unknown [facility] Jaciel RA Pacing Amplitude (volts) 2.4 V [facility] Jaciel RA Pacing Polarity BI [facility] Jaciel RA Pacing Pulse Width (ms) 0.4 ms [facility] Jaciel RA Sensing Amplitude (mvolts) AUTO [facility] Jaciel RA Sensing Blanking Period (ms) 56 ms [facility] Jaciel RA Sensing Polarity BI [facility] Jaciel RA Sensing Refractory Period (ms) AUTO [facility] Jaciel RV Pacing Amplitude (volts) 3.4 V [facility] Jaciel RV Pacing Polarity BI [facility] Jaciel RV Pacing Pulse Width (ms) 0.4 ms [facility] Jaciel RV Sensing Amplitude (mvolts) AUTO [facility] Jaciel RV Sensing Blanking Period (ms) 30 ms [facility] Jaciel RV Sensing Polarity BI [facility] Jaciel RV Sensing Refractory Period (ms) 250 ms [facility] Hysteresis Rate (bpm) 60 {beats}/min [facility] Lead1 Mfg SUZETTE [facility] Lead2 Mfg SUZETTE [facility] Location RA [facility] Location RV [facility] Lower Rate (bpm) 60 {beats}/min [facility] Max Sensor Rate (bmp) 130 {beats}/min [facility] Model 827906 Monika Dominguez [facility] Model [id number] [facility] Model [id number] [facility] Pacemaker Dependent? NO [facility] PM-Device Mfg BIO [facility] PM-PMT Intervention ON [facility] PM-PVC Intervention ON [facility] PM-Rate Modulation Acceleration Reaction 4 s [facility] PM-Rate Modulation Deceleration 0.5 m [facility] PM-Rate Modulation Ocean 23 [facility] PM-Rate Modulation Threshold Medium [facility] RA Bipolar Impedance ohms 448 ohm [facility] Rhythm AF with controlled ventricular rate. [facility] RV Bipolar Impedance ohms 390 ohm [facility] Serial Number [id number] [facility] Serial Number [id number] [facility] Serial Number [id number] [facility] Thresh RA Sensing Amplitude (mvolts) 2.4 mV [facility] Thresh RV Capture Amplitude (volts) 1.8 V [facility] Thresh RV Capture Duration (ms) 0.4 ms [facility] Thresh RV Sensing Amplitude (mvolts) 2.4 mV [facility] Tracking Rate (bpm) 160 {beats}/min [facility] BNPon 11-28-2021 Natriuretic peptide B (Bld) [Mass/Vol] 29684.0 pg/mL Critically high <=1,800.0 [facility] Comment on above: Performed By: #### C MP, BNP, CRP ####[facility] Lqwbbzgoax[address] [place], [place] [address]Dr. Farhat Leal CBC AUTO DIFFon 11-28-2021 BASO # 0.0 103/ul Normal 0.0-0.1 [facility] Comment on above: Performed By: #### C BC ####[facility] Zvnuwphapo[address] [place], [place] [address]Dr. Farhat Leal Basophils/100 WBC (Bld) 0.3 % Normal 0.2-2.0 [facility] Comment on above: Performed By: #### C BC ####[facility] [address] [place] [address]Dr. Farhat Leal EO # 0.1 103/ul Normal 0.0-0.7 [facility] Comment on above: Performed By: #### C BC ####[facility] Bwvbfliarx[address] [place], [place] [address]Dr. Farhat Leal Eosinophils/100 WBC (Bld) 1.0 % Normal 0.9-7.0 [facility] Comment on above: Performed By: #### C BC ####[facility] [address]ell[address] [place] [address]Dr. Madelynlorri Elvis Erythrocyte distribution width (RBC) [Ratio] 14.0 % Normal 11.0-15.0 [facility] Comment on above: Performed By: #### C BC ####[facility] [address] [place] [address]Dr. Farhat Leal Hematocrit (Bld) [Volume fraction] 27.6 % Critically low 42.0-54.0 [facility] Comment on above: Performed By: #### C BC ####[facility] W[address]knlxnr[address] [place], [place] [address]Dr. Farhat Leal Hemoglobin (Bld) [Mass/Vol] 9.0 g/dL Critically low 14.0-18.0 [facility] Comment on above: Performed By: #### C BC ####[facility] Ytgejzrfik[address] [place], [place] [address]Dr. Farhat Leal IG # 0.12 10e3/ul Critically high 0.00-0.03 [facility] Comment on above: Performed By: #### C BC ####[facility] Otfzgumbqd[address] [place], [place] [address]Dr. Farhat Leal IG % 1.0 % Critically high 0.0-0.5 [facility] Comment on above: Performed By: #### C BC ####[facility] B[address]fhbqacf[address] [place], [place] [address]Dr. Farhat Leal LYMPH # 1.2 103/ul Normal 1.2-3.8 [facility] Comment on above: Performed By: #### C BC ####[facility] Ikbanvgmfc[address] [place], [place] [address]Dr. Farhat Leal Lymphocytes/100 WBC (Bld) 9.9 % Critically low 20.5-60.0 [facility] Comment on above: Performed By: #### C BC ####[facility] Kepmjousnh[address] [place], [place] [address]Dr. Farhat Leal MANUAL DIFF REQ NO Normal [facility] Comment on above: Performed By: #### C BC ####[facility] [address] [place] [address]Dr. Farhat Leal MCH (RBC) [Entitic mass] 30.0 pg Normal 25.9-34.0 [facility] Comment on above: Performed By: #### C BC ####[facility] Cpzornjcde[address] [place], [place] [address]Dr. Farhat Leal MCHC (RBC) [Mass/Vol] 32.6 g/dL Normal 29.9-35.2 [facility] Comment on above: Performed By: #### C BC ####[facility] Mqrcvqxbpq[address] [place], [place] [address]DrSkylar Leal MCV (RBC) [Entitic vol] 92.0 fL Normal 80.0-94.0 [facility] Comment on above: Performed By: #### C BC ####[facility] Yfabbrhabs[address] [place], [place] [address]DrSkylar Leal MONO # 1.1 103/ul Critically high 0.3-0.8 [facility] Comment on above: Performed By: #### C BC ####[facility] V[address]zcdxsgn[address] [place], [place] [address]DrSkylar Leal Monocytes/100 WBC (Bld) 9.3 % Normal 1.7-12.0 [facility] Comment on above: Performed By: #### C BC ####[facility] R[address]pcfjviv[address] [place], [place] [address]DrSkylar Leal NEUT # 9.3 103/ul Critically high 1.4-6.5 [facility] Comment on above: Performed By: #### C BC ####[facility] Ditmcibrzv7[address] [place], [place] [address]DrSkylar Leal Neutrophils/100 WBC (Bld) 78.5 % Critically high 43.0-75.0 [facility] Comment on above: Performed By: #### C BC ####[facility] Xlpslnqjik[address] [place], [place] [address]DrSkylar Leal Platelet mean volume (Bld) [Entitic vol] 9.6 fL Normal 9.5-13.5 [facility] Comment on above: Performed By: #### C BC ####[facility] [address] [place] [address]Dr. Farhat Leal PLT 357 103/ul Normal 150-450 [facility] Comment on above: Performed By: #### C BC ####[facility] [address]yp[address] [place] [id number]. Farhat Leal RBC 3.00 106/ul Critically low 4.70-6.10 [place] Comment on above: Performed By: #### C BC ####[facility] [address]fa[address] [place] [address]Dr. Farhat Leal WBC 11.8 103/ul Critically high 4.0-11.0 [facility] Comment on above: Performed By: #### C BC ####[facility] [address]pezn[address] [place] [address]DrSkylar Leal CRPon 11-28-2021 CRP 20.9 mg/dL Critically high <=1.0 [facility] Comment on above: Performed By: #### C MP, BNP, CRP ####[facility] Razcgsbcie[address] [place], [place] [address]Dr. Farhat Leal CULTURE OTHERon 11-28-2021 CULTURE OTHER Normal [facility] Comment on above: Performed By: #### O THCX ####[facility] Ygqieiapob[address] [place], [place] [address]Dr. Farhat Leal CULTURE OTHER Normal [facility] Comment on above: Performed By: #### O THCX ####[facility] [address]yw[address] [place] [id number] Leal PROF 14(COMP METB)on 022 Albumin [Mass/Vol] 1.4 g/dL Critically low 3.4-5.0 Th [facility] Comment on above: Performed By: #### C MP, BNP, CRP ####[facility] [address]qfffcjuka[address] [place], [place] [address]DrSkylar Leal Albumin/Globulin [Mass ratio] 0.4 {ratio} Normal [facility] Comment on above: Performed By: #### C MP, BNP, CRP ####[facility] R[address]vyki[address] [place] [address]Dr. Farhat Leal ALP [Catalytic activity/Vol] 82 U/L Normal 46-116 [facility] Comment on above: Performed By: #### C MP, BNP, CRP ####[facility] Njrcoynxmi[address] [place], [place] [address]Dr. Farhat Elvis ALT [Catalytic activity/Vol] 20 U/L Normal 16-63 [facility] Comment on above: Performed By: #### C MP, BNP, CRP ####[facility] Zefxetnzls[address] [place], [place] [address]Dr. Farhat Leal Anion gap [Moles/Vol] 13.0 mmol/L Normal [facility] Comment on above: Performed By: #### C MP, BNP, CRP ####[facility] Uo[address]vppyo[address] [place], [place] [address]Dr. Farhat Elvis AST [Catalytic activity/Vol] 33 U/L Normal 15-37 [facility] Comment on above: Performed By: #### C MP, BNP, CRP ####[facility] Ufbufgrvnj[address] [place], [place] [address]Dr. Farhat Leal Bilirubin [Mass/Vol] 0.7 mg/dL Normal 0.2-1.0 [facility] Comment on above: Performed By: #### C MP, BNP, CRP ####[facility] Tszxzsqwtd[address] [place], [place] [address]Dr. Farhat Leal Calcium [Mass/Vol] 8.4 mg/dL Critically low 8.5-10.1 [facility] Comment on above: Performed By: #### C MP, BNP, CRP ####[facility] Zkpryucrxi[address] [place], [place] [address]Dr. Farhat Leal Chloride [Moles/Vol] 100 mmol/L Normal 98-107 [facility] Comment on above: Performed By: #### C MP, BNP, CRP ####[facility] [address]or[address] [place] [address]Dr. Farhat Leal CO2 [Moles/Vol] 23.7 mmol/L Normal 21.0-32.0 [facility] Comment on above: Performed By: #### C MP, BNP, CRP ####[facility] [address]ixbzl[address] [place] [address]Dr. Farhat Elvis Creatinine [Mass/Vol] 1.70 mg/dL Critically high 0.70-1.30 [facility] Comment on above: Performed By: #### C MP, BNP, CRP ####[facility] [address]foh[address] [place] [address]Dr. Farhat Elvis EGFR-AF ETHIOPIAN 48 mL/min/1.73m2 Critically low >=60 [facility] Comment on above: Performed By: #### C MP, BNP, CRP ####[facility] [address]ts[address]zdco[address] [place] [address]Dr. Farhat Leal EGFR-NON AF ETHIOPIAN 39 mL/min/1.73m2 Critically low >=60 [facility] Comment on above: Performed By: #### C MP, BNP, CRP ####[facility] Z[address]gus[address] [place] [address]Dr. Farhat Elvis Globulin (S) [Mass/Vol] 3.6 g/dL Normal [facility] Comment on above: Performed By: #### C MP, BNP, CRP ####[facility] [address]frr[address]ayk[address] [place] [address]Dr. Madelynlorri Elvis Glucose [Mass/Vol] 232 mg/dL Critically high 74-106 T [facility] Comment on above: Performed By: #### C MP, BNP, CRP ####[facility] [address]mp[address]uhpc[address] [place] [address]Dr. Farhat Elvis Potassium [Moles/Vol] 3.7 mmol/L Normal 3.5-5.1 [facility] Comment on above: Performed By: #### C MP, BNP, CRP ####[facility] [address]forwzex[address] [place] [address]Dr. Farhat Leal Protein [Mass/Vol] 5.0 g/dL Critically low 6.4-8.2 Th [facility] Comment on above: Performed By: #### C MP, BNP, CRP ####[facility] Wdyxxvhuxl[address] [place], [place] [address]Dr. Farhat Leal Sodium [Moles/Vol] 133 mmol/L Critically low 136-145 Th [facility] Comment on above: Performed By: #### C MP, BNP, CRP ####[facility] Vfkooxquif[address] [place], [place] [address]Dr. Farhat Leal Urea nitrogen [Mass/Vol] 52.0 mg/dL Critically high 7.0-18.0 [facility] Comment on above: Performed By: #### C MP, BNP, CRP ####[facility] Rjcmavpcyr[address] [place], [place] [address]Dr. Farhat Leal Urea nitrogen/Creatinine [Mass ratio] 30.6 mg/mg Normal [facility] Comment on above: Performed By: #### C MP, BNP, CRP ####[facility] Retqnjeysf[address] [place], [place] [address]Dr. Farhat Leal PROTIMEon 11-28-2021 INR Coag (PPP) [Relative time] 1.29 {INR} Normal [facility] Comment on above: Performed By: #### P T ####[facility] Txvqnulsxs[address] [place], [place] [address]Dr. Farhat Leal INR GUIDELINES SEE BELOW Normal [facility] Comment on above: Result Comment: MALINA RED INR: 2.0 - 3.0 CONDITIONS NOT LISTED BELOW 2.5 - 3.5 FOR PROSTHETIC HEART VALVE REPLACEMENT 2.5 - 3.5 RECURRENT THROMBOSIS Performed By: #### P T ####[facility] [facility] [address] [place], [place] [address]Dr. Farhat Leal PT Coag (PPP) [Time] 13.7 s Critically high 9.0-11.6 [facility] Comment on above: Performed By: #### P T ####[facility] Gukxnvqu[address] [place], [place] [address]Dr. Farhat Leal [facility] RATE 77 mm/hr Critically high <=20 [facility] Comment on above: Performed By: #### S EDR ####[facility] [address]vvl[address] [place], [place] [address]Dr. Farhat Leal XR CHEST 2 Von 11-28-2021 XR CHEST 2 V Normal [facility] BNPon 11-27-2021 Natriuretic peptide B (Bld) [Mass/Vol] 30008.0 pg/mL Critically high <=1,800.0 [facility] Comment on above: Performed By: #### B TECHNICAL PUBLICATIONS MANAGER, CMP, CRP ####[facility] Dtjxocdbjd[address] [place], [place] [address]Dr. Farhat Leal CBC AUTO DIFFon 11-27-2021 BASO # 0.0 103/ul Normal 0.0-0.1 [facility] Comment on above: Performed By: #### C BC ####[facility] Uub[address]cr[address]fu[address] [place], [place] [address]Dr. Farhat Leal Basophils/100 WBC (Bld) 0.2 % Normal 0.2-2.0 [facility] Comment on above: Performed By: #### C BC ####[facility] [address]kpfhqrb[address] [place], [place] [address]Dr. Farhat Leal EO # 0.2 103/ul Normal 0.0-0.7 [facility] Comment on above: Performed By: #### C BC ####[facility] Wdvnbjamwx[address] [place], [place] [address]Dr. Farhat Leal Eosinophils/100 WBC (Bld) 1.9 % Normal 0.9-7.0 [facility] Comment on above: Performed By: #### C BC ####[facility] Rcsniehecy[address] [place], [place] [address]Dr. Farhat Leal Erythrocyte distribution width (RBC) [Ratio] 13.9 % Normal 11.0-15.0 [facility] Comment on above: Performed By: #### C BC ####[facility] A[address]zejcpez[address] [place], [place] [address]Dr. Farhat Leal Hematocrit (Bld) [Volume fraction] 28.7 % Critically low 42.0-54.0 [facility] Comment on above: Performed By: #### C BC ####[facility] [address]xc[address] [place] [phone]. Farhat Leal Hemoglobin (Bld) [Mass/Vol] 9.3 g/dL Critically low 14.0-18.0 [facility] Comment on above: Performed By: #### C BC ####[facility] [address]wmwf[address] [place] [address]Dr. Farhat Leal IG # 0.14 10e3/ul Critically high 0.00-0.03 [facility] Comment on above: Performed By: #### C BC ####[facility] [address]im[address]iqn[address] [place] [address]Dr. Farhat Leal IG % 1.2 % Critically high 0.0-0.5 [facility] Comment on above: Performed By: #### C BC ####[facility] X[address]biq[address]za[address] [place], [place] [address]Dr. Farhat Elvis LYMPH # 1.1 103/ul Critically low 1.2-3.8 [facility] Comment on above: Performed By: #### C BC ####[facility] [address]phwwm[address] [place] [address]Dr. Farhat Leal Lymphocytes/100 WBC (Bld) 9.4 % Critically low 20.5-60.0 [facility] Comment on above: Performed By: #### C BC ####[facility] [address]zinjr[address] [place] [address]Dr. Farhat Leal MANUAL DIFF REQ NO Normal [facility] Comment on above: Performed By: #### C BC ####[facility] [address]rwkwqlpu[address] [place] [address]Dr. Farhat Leal MCH (RBC) [Entitic mass] 29.7 pg Normal 25.9-34.0 [facility] Comment on above: Performed By: #### C BC ####[facility] Ggspricjxr[address] [place] [address]Dr. Farhat Elvis MCHC (RBC) [Mass/Vol] 32.4 g/dL Normal 29.9-35.2 [facility] Comment on above: Performed By: #### C BC ####[facility] Iwzjvwghpk[address] [place] [phone]. Farhat Leal MCV (RBC) [Entitic vol] 91.7 fL Normal 80.0-94.0 [facility] Comment on above: Performed By: #### C BC ####[facility] Jfdrwxywzm0374 [place] [phone] Leal MONO # 1.1 103/ul Critically high 0.3-0.8 [facility] Comment on above: Performed By: #### C BC ####[facility] Hyxhmlaydx07[address] [place] [phone]. Farhat Leal Monocytes/100 WBC (Bld) 9.7 % Normal 1.7-12.0 [facility] Comment on above: Performed By: #### C BC ####[facility] [address]aclxns[address] [place], [place] [id number]. Farhat Leal NEUT # 9.2 103/ul Critically high 1.4-6.5 [facility] Comment on above: Performed By: #### C BC ####[facility] Wxkurajqry94[address] [place] [phone]. Farhat Leal Neutrophils/100 WBC (Bld) 77.6 % Critically high 43.0-75.0 [facility] Comment on above: Performed By: #### C BC ####[facility] Rgipghtsjz1673 [place] [phone]. Farhat Leal Platelet mean volume (Bld) [Entitic vol] 9.5 fL Normal 9.5-13.5 [facility] Comment on above: Performed By: #### C BC ####[facility] Mnizcetfll[address] [place], [place] [id number]. Farhat Elvis PLT 375 103/ul Normal 150-450 [facility] Comment on above: Performed By: #### C BC ####[facility] P[address]irhxka3[address] [place] [phone]. Farhat Elvis RBC 3.13 106/ul Critically low 4.70-6.10 [facility] Comment on above: Performed By: #### C BC ####[facility] Acqmijfqwj80[address] [place] [phone]. Madelynlorri Leal WBC 11.8 103/ul Critically high 4.0-11.0 [facility] Comment on above: Performed By: #### C BC ####[facility] Vqkzvbongu4[address] [place] [phone]. Farhat Leal CRPon 11-27-2021 CRP 24.5 mg/dL Critically high <=1.0 [place] Comment on above: Performed By: #### B TECHNICAL PUBLICATIONS MANAGER, CMP, CRP ####[facility] Fefgaomhto[address] [place] [address]Dr. Farhat Leal CULTURE OTHERon 11-27-2021 CULTURE OTHER Normal [facility] Comment on above: Performed By: #### O THCX ####[facility] F[address]eicsq[address] [place], [place] [address]Dr. Farhat Leal CULTURE OTHER Normal [facility] Comment on above: Performed By: #### O THCX ####[facility] K[address]jvtnpw[address] [place], [place] [address]Dr. Farhat Leal CULTURE WOUNDon 11-27-2021 CULTURE WOUND Normal [facility] Comment on above: Performed By: #### W OUNDCX ####[facility] R[address]kshkefis[address] [place] [address]Dr. Farhat Leal POINT OF CARE GLUCOSEon 11-15 Glucose [Mass/Vol] 147 mg/dL Critically high 74-106 [facility] Comment on above: Performed By: #### P OCGLUC ####[facility] Mwhodfpufc[address] [place], [place] [address]Dr. Farhat Leal PROF 14(COMP METB)on 022 Albumin [Mass/Vol] 1.4 g/dL Critically low 3.4-5.0 [facility] Comment on above: Performed By: #### B TECHNICAL PUBLICATIONS MANAGER, CMP, CRP ####[facility] Evgdczvpoi9[address] [place] [address]Dr. Farhat Leal Albumin/Globulin [Mass ratio] 0.4 {ratio} Normal [facility] Comment on above: Performed By: #### B TECHNICAL PUBLICATIONS MANAGER, CMP, CRP ####[facility] Vkdtuamumu[address] [place], [place] [address]Dr. Farhat Elvis ALP [Catalytic activity/Vol] 82 U/L Normal 46-116 [facility] Comment on above: Performed By: #### B TECHNICAL PUBLICATIONS MANAGER, CMP, CRP ####[facility] Fqrvvudsbg[address] [place], [place] [address]Dr. Farhat Leal ALT [Catalytic activity/Vol] 22 U/L Normal 16-63 [facility] Comment on above: Performed By: #### B TECHNICAL PUBLICATIONS MANAGER, CMP, CRP ####[facility] G[address]hdkcyzzb[address] [place], [place] [address]Dr. Farhat Leal Anion gap [Moles/Vol] 14.2 mmol/L Normal [facility] Comment on above: Performed By: #### B TECHNICAL PUBLICATIONS MANAGER, CMP, CRP ####[facility] Bzaiortfsr[address] [place], [place] [address]Dr. Farhat Leal AST [Catalytic activity/Vol] 35 U/L Normal 15-37 [facility] Comment on above: Performed By: #### B TECHNICAL PUBLICATIONS MANAGER, CMP, CRP ####[facility] [address]av[address] [place], [place] [address]Dr. Farhat Leal Bilirubin [Mass/Vol] 0.7 mg/dL Normal 0.2-1.0 [facility] Comment on above: Performed By: #### B TECHNICAL PUBLICATIONS MANAGER, CMP, CRP ####[facility] [address]ms[address]wewfza[address] [place], [place] [address]Dr. Farhat Leal Calcium [Mass/Vol] 8.2 mg/dL Critically low 8.5-10.1 [facility] Comment on above: Performed By: #### B TECHNICAL PUBLICATIONS MANAGER, CMP, CRP ####[facility] Ukzcrqtnbp[address] [place], [place] [address]Dr. Farhat Leal Chloride [Moles/Vol] 99 mmol/L Normal 98-107 [facility] Comment on above: Performed By: #### B TECHNICAL PUBLICATIONS MANAGER, CMP, CRP ####[facility] Xillfvkxxy[address] [place] [address]Dr. Farhat Leal CO2 [Moles/Vol] 22.6 mmol/L Normal 21.0-32.0 [facility] Comment on above: Performed By: #### B TECHNICAL PUBLICATIONS MANAGER, CMP, CRP ####[facility] R[address]sswnlhks[address] [place] [phone]. Farhat Leal Creatinine [Mass/Vol] 1.73 mg/dL Critically high 0.70-1.30 [facility] Comment on above: Performed By: #### B TECHNICAL PUBLICATIONS MANAGER, CMP, CRP ####[facility] L[address]ataxbkp[address] [place] [phone]. Farhat Elvis EGFR-AF ETHIOPIAN 47 mL/min/1.73m2 Critically low >=60 [facility] Comment on above: Performed By: #### B TECHNICAL PUBLICATIONS MANAGER, CMP, CRP ####[facility] [address]ssx[address] [place], [place] [address]Dr. Farhat Leal EGFR-NON AF ETHIOPIAN 38 mL/min/1.73m2 Critically low >=60 [facility] Comment on above: Performed By: #### B TECHNICAL PUBLICATIONS MANAGER, CMP, CRP ####[facility] Urcuxfyvoq[address] [place] [address]Dr. Farhat Elvis Globulin (S) [Mass/Vol] 3.7 g/dL Normal [facility] Comment on above: Performed By: #### B TECHNICAL PUBLICATIONS MANAGER, CMP, CRP ####[facility] Kcbyijegzr[address] [place] [address]Dr. Madelynlorri Elvis Glucose [Mass/Vol] 220 mg/dL Critically high 74-106 [facility] Comment on above: Performed By: #### B TECHNICAL PUBLICATIONS MANAGER, CMP, CRP ####[facility] Owztdueoig[address] [place] [address]Dr. Farhat Leal Potassium [Moles/Vol] 3.8 mmol/L Normal 3.5-5.1 [facility] Comment on above: Performed By: #### B TECHNICAL PUBLICATIONS MANAGER, CMP, CRP ####[facility] Hfadgjmvyw340[address] [place] [address]Dr. Farhat Elvis Protein [Mass/Vol] 5.1 g/dL Critically low 6.4-8.2 Th [facility] Comment on above: Performed By: #### B TECHNICAL PUBLICATIONS MANAGER, CMP, CRP ####[facility] Nuerxyvsfe[address] [place] [address]Dr. Farhat Leal Sodium [Moles/Vol] 132 mmol/L Critically low 136-145 Th [facility] Comment on above: Performed By: #### B TECHNICAL PUBLICATIONS MANAGER, CMP, CRP ####[facility] Vxpiijnitd36[address] [place] [address]Dr. Farhat Leal Urea nitrogen [Mass/Vol] 49.0 mg/dL Critically high 7.0-18.0 [facility] Comment on above: Performed By: #### B TECHNICAL PUBLICATIONS MANAGER, CMP, CRP ####[facility] Sttx[address] [place], [place] [address]Dr. Farhat Leal Urea nitrogen/Creatinine [Mass ratio] 28.3 mg/mg Normal [facility] Comment on above: Performed By: #### B TECHNICAL PUBLICATIONS MANAGER, CMP, CRP ####[facility] Jeztpxsaht[address] [place], [place] [address]Dr. Farhat Leal PROTIMEon 11-27-2021 INR Coag (PPP) [Relative time] 1.25 {INR} Normal [facility] Comment on above: Performed By: #### P T ####[facility] [address]zdbskiw[address] [place], [place] [address]Dr. Farhat Leal INR GUIDELINES SEE BELOW Normal The [facility] Comment on above: Result Comment: MALINA RED INR: 2.0 - 3.0 CONDITIONS NOT LISTED BELOW 2.5 - 3.5 FOR PROSTHETIC HEART VALVE REPLACEMENT 2.5 - 3.5 RECURRENT THROMBOSIS Performed By: #### P T ####[facility] Bdrxkxlltq[address] [place], [place] [address]Dr. Farhat Leal PT Coag (PPP) [Time] 13.3 s Critically high 9.0-11.6 [facility] Comment on above: Performed By: #### P T ####[facility] Ejndruhmch[address] [place], [place] [address]Dr. Farhat Leal [facility] SED RATE 60 mm/hr Critically high <=20 [facility] Comment on above: Performed By: #### S EDR ####[facility] [address]xfthxfl[address] [place] [address]Dr. Farhat Leal VANCOMYCIN TROUGHon 11-28-19 22 VANCOMYCIN TROUGH 21.2 ug/ml Critically high 5.0-20.0 Th e [facility] Comment on above: Performed By: #### V ANCT ####[facility] [address]ezucy[address] [place], [place] [address]Dr. Farhat Leal XR CHEST 1 Von 11-27-2021 XR CHEST 1 V Normal [facility] BNPon 11-26-2021 Natriuretic peptide B (Bld) [Mass/Vol] 28923.0 pg/mL Critically high <=1,800.0 [facility] Comment on above: Performed By: #### B TECHNICAL PUBLICATIONS MANAGER, CRP, CMP ####[facility] Jmhrmzkenx[address] [place], [place] [address]Dr. Farhat Elvis CBC AUTO DIFFon 11-26-2021 BASO # 0.0 103/ul Normal 0.0-0.1 [facility] Comment on above: Performed By: #### C BC ####[facility] Efetdbccax[address] [place], [place] [address]Dr. Madelynlorri Leal Basophils/100 WBC (Bld) 0.2 % Normal 0.2-2.0 [facility] Comment on above: Performed By: #### C BC ####[facility] Mqyefxplls[address] [place], [place] [address]Dr. Farhat Elvis EO # 0.0 103/ul Normal 0.0-0.7 [facility] Comment on above: Performed By: #### C BC ####[facility] [address]isehoeuy[address] [place], [place] [address]Dr. Madelynlorri Leal Eosinophils/100 WBC (Bld) 0.3 % Critically low 0.9-7.0 [facility] Comment on above: Performed By: #### C BC ####[facility] Rfreifdvte[address] [place], [place] [address]Dr. Farhat Leal Erythrocyte distribution width (RBC) [Ratio] 13.9 % Normal 11.0-15.0 [facility] Comment on above: Performed By: #### C BC ####[facility] Rergzldzwg25[address] [place] [address]DrSkylar Leal Hematocrit (Bld) [Volume fraction] 27.3 % Critically low 42.0-54.0 [facility] Comment on above: Performed By: #### C BC ####[facility] Ckrlubpvpu6001 [place] [address]DrSkylar Leal Hemoglobin (Bld) [Mass/Vol] 8.8 g/dL Critically low 14.0-18.0 [facility] Comment on above: Performed By: #### C BC ####[facility] Xalxcznohs[address] [place], [place] [address]DrSkylar Leal IG # 0.17 10e3/ul Critically high 0.00-0.03 [facility] Comment on above: Performed By: #### C BC ####[facility] Vxnxclcrcc[address] [place], [place] [address]DrSkylar Leal IG % 1.2 % Critically high 0.0-0.5 [facility] Comment on above: Performed By: #### C BC ####[facility] Exwxrqzreb[address] [place], [place] [address]DrSkylar Leal LYMPH # 0.7 103/ul Critically low 1.2-3.[address] [facility] Comment on above: Performed By: #### C BC ####[facility] Nmknwtttvg[address] [place], [place] [address]DrSkylar Leal Lymphocytes/100 WBC (Bld) 4.8 % Critically low 20.5-60.0 [facility] Comment on above: Performed By: #### C BC ####[facility] N[address]heahftov[address] [place], [place] [address]DrSkylar Leal MANUAL DIFF REQ NO Normal [facility] Comment on above: Performed By: #### C BC ####[facility] Zrotqrpuzw[address] [place] [address]DrSkylar Leal MCH (RBC) [Entitic mass] 29.9 pg Normal 25.9-34.0 [facility] Comment on above: Performed By: #### C BC ####[facility] Alefwqzuxr7098 [place] [address]DrSkylar Leal MCHC (RBC) [Mass/Vol] 32.2 g/dL Normal 29.9-35.2 [facility] Comment on above: Performed By: #### C BC ####[facility] Jqszerhtox3667 [place] [address]DrSkylar Leal MCV (RBC) [Entitic vol] 92.9 fL Normal 80.0-94.0 [facility] Comment on above: Performed By: #### C BC ####[facility] Qwbvgbsacw[address] [place], [place] [address]DrSkylar Leal MONO # 1.3 103/ul Critically high 0.3-0.8 [facility] Comment on above: Performed By: #### C BC ####[facility] [address]omlkdmcn[address] [place], [place] [address]DrSkylar Leal Monocytes/100 WBC (Bld) 9.6 % Normal 1.7-12.0 [facility] Comment on above: Performed By: #### C BC ####[facility] B[address]xadevmy[address] [place], [place] [address]DrSkylar Leal NEUT # 11.4 103/ul Critically high 1.4-6.5 The [facility] Comment on above: Performed By: #### C BC ####[facility] Glfasfztjm[address] [place], [place] [address]DrSkylar Leal Neutrophils/100 WBC (Bld) 83.9 % Critically high 43.0-75.0 [facility] Comment on above: Performed By: #### C BC ####[facility] Qiapbccyry[address] [place], [place] [address]DrSkylar Leal Platelet mean volume (Bld) [Entitic vol] 9.6 fL Normal 9.5-13.5 [facility] Comment on above: Performed By: #### C BC ####[facility] [address]ptjamp[address] [place], [place] [address]DrSkylar Leal PLT 395 103/ul Normal 150-450 [facility] Comment on above: Performed By: #### C BC ####[facility] Vwbtcaqgie[address] [place] [id number]. Farhat Leal RBC 2.94 106/ul Critically low 4.70-6.10 [facility] Comment on above: Performed By: #### C BC ####[facility] Ganweqwpoy[address] [place] [phone]. Farhat Leal WBC 13.6 103/ul Critically high 4.0-11.0 [facility] Comment on above: Performed By: #### C BC ####[facility] Bkakrqbtcx0022 [place] [phone]. Farhat Elvis CRPon 11-26-2021 CRP [Mass/Vol] mg/L Critically high <=1.0 [facility] Comment on above: Performed By: #### B TECHNICAL PUBLICATIONS MANAGER, CRP, CMP ####[facility] Igmzqtysoc[address] [place] [address]Dr. Farhat Elvis PROF 14(COMP METB)on 11-26- 022 Albumin [Mass/Vol] 1.5 g/dL Critically low 3.4-5.0 [facility] Comment on above: Performed By: #### B TECHNICAL PUBLICATIONS MANAGER, CRP, CMP ####[facility] Qzffbsagwg7632 [place] [phone]. Farhat Leal Albumin/Globulin [Mass ratio] 0.4 {ratio} Normal [facility] Comment on above: Performed By: #### B TECHNICAL PUBLICATIONS MANAGER, CRP, CMP ####[facility] Nhhmsyxbzi04[address] [place] [phone]. Farhat Elvis ALP [Catalytic activity/Vol] 88 U/L Normal 46-116 [facility] Comment on above: Performed By: #### B TECHNICAL PUBLICATIONS MANAGER, CRP, CMP ####[facility] Ftnlwjxjij25[address] [place] [address]Dr. Farhat Leal ALT [Catalytic activity/Vol] 29 U/L Normal 16-63 [facility] Comment on above: Performed By: #### B TECHNICAL PUBLICATIONS MANAGER, CRP, CMP ####[facility] Ufhwfjfcef9164 [place] [phone]. Farhat Leal Anion gap [Moles/Vol] 13.3 mmol/L Normal [facility] Comment on above: Performed By: #### B TECHNICAL PUBLICATIONS MANAGER, CRP, CMP ####[facility] Dpiajfcxlm37[address] [place] [phone]. Farhat Leal AST [Catalytic activity/Vol] 32 U/L Normal 15-37 [facility] Comment on above: Performed By: #### B TECHNICAL PUBLICATIONS MANAGER, CRP, CMP ####[facility] Myjdyjpygj[address] [place] [address]Dr. Farhat Leal Bilirubin [Mass/Vol] 0.6 mg/dL Normal 0.2-1.0 [facility] Comment on above: Performed By: #### B TECHNICAL PUBLICATIONS MANAGER, CRP, CMP ####[facility] Ezhlosrwxw64[address] [place] [address]Dr. Farhat Leal Calcium [Mass/Vol] 8.0 mg/dL Critically low 8.5-10.1 [facility] Comment on above: Performed By: #### B TECHNICAL PUBLICATIONS MANAGER, CRP, CMP ####[facility] Fgfewdyymp4[address] [place] [address]Dr. Farhat Leal Chloride [Moles/Vol] 98 mmol/L Normal 98-107 [facility] Comment on above: Performed By: #### B TECHNICAL PUBLICATIONS MANAGER, CRP, CMP ####[facility] Dqfgxhqfpk7[address] [place] [phone]. Farhat Leal CO2 [Moles/Vol] 23.7 mmol/L Normal 21.0-32.0 [facility] Comment on above: Performed By: #### B TECHNICAL PUBLICATIONS MANAGER, CRP, CMP ####[facility] Nyvxpuwscz[address] [place] [address]Dr. Farhat Leal Creatinine [Mass/Vol] 2.08 mg/dL Critically high 0.70-1.30 [facility] Comment on above: Performed By: #### B TECHNICAL PUBLICATIONS MANAGER, CRP, CMP ####[facility] Bkihiexozk[address] [place] [phone]. Farhat Leal EGFR-AF ETHIOPIAN 38 mL/min/1.73m2 Critically low >=60 [facility] Comment on above: Performed By: #### B TECHNICAL PUBLICATIONS MANAGER, CRP, CMP ####[facility] Tjfghlqsfv[address] [place] [address]Dr. Farhat Leal EGFR-NON AF ETHIOPIAN 31 mL/min/1.73m2 Critically low >=60 [facility] Comment on above: Performed By: #### B TECHNICAL PUBLICATIONS MANAGER, CRP, CMP ####[facility] Lludrzzazm7[address] [place] [address]Dr. Farhat Leal Globulin (S) [Mass/Vol] 3.7 g/dL Normal [facility] Comment on above: Performed By: #### B TECHNICAL PUBLICATIONS MANAGER, CRP, CMP ####[facility] Egfwleedkc8593 [place] [address]Dr. Farhat Leal Glucose [Mass/Vol] 315 mg/dL Critically high 74-106 T [facility] Comment on above: Performed By: #### B TECHNICAL PUBLICATIONS MANAGER, CRP, CMP ####[facility] Z[address]zmfaf[address] [place], [place] [address]Dr. Farhat Leal Potassium [Moles/Vol] 4.0 mmol/L Normal 3.5-5.1 [facility] Comment on above: Performed By: #### B TECHNICAL PUBLICATIONS MANAGER, CRP, CMP ####[facility] Wnyzfgcpmc[address] [place], [place] [address]Dr. Farhat Leal Protein [Mass/Vol] 5.2 g/dL Critically low 6.4-8.2 Th [facility] Comment on above: Performed By: #### B TECHNICAL PUBLICATIONS MANAGER, CRP, CMP ####[facility] Thwqwgfzgq[address] [place], [place] [address]Dr. Farhat Leal Sodium [Moles/Vol] 131 mmol/L Critically low 136-145 Th [facility] Comment on above: Performed By: #### B TECHNICAL PUBLICATIONS MANAGER, CRP, CMP ####[facility] Cntrfwktkx[address] [place], [place] [address]Dr. Farhat Leal Urea nitrogen [Mass/Vol] 50.0 mg/dL Critically high 7.0-18.0 [facility] Comment on above: Performed By: #### B TECHNICAL PUBLICATIONS MANAGER, CRP, CMP ####[facility] Rtalcwuycb[address] [place] [address]Dr. Farhat Leal Urea nitrogen/Creatinine [Mass ratio] 24.0 mg/mg Normal [facility] Comment on above: Performed By: #### B TECHNICAL PUBLICATIONS MANAGER, CRP, CMP ####[facility] Zcpghgbasc4[address] [place] [address]Dr. Farhat Leal PROTIMEon 11-26-2021 INR Coag (PPP) [Relative time] 1.31 {INR} Normal [facility] Comment on above: Performed By: #### P T ####[facility] K[address]cvxqwwh[address] [place] [address]Dr. Farhat Leal INR GUIDELINES SEE BELOW Normal The [facility] Comment on above: Result Comment: MALINA RED INR: 2.0 - 3.0 CONDITIONS NOT LISTED BELOW 2.5 - 3.5 FOR PROSTHETIC HEART VALVE REPLACEMENT 2.5 - 3.5 RECURRENT THROMBOSIS Performed By: #### P T ####[facility] Byboypvvef[address] [place], [place] [address]Dr. Farhat Leal PT Coag (PPP) [Time] 13.9 s Critically high 9.0-11.6 [facility] Comment on above: Performed By: #### P T ####[facility] [address]hwvv[address] [place], [place] [address]Dr. Madelynlorri Leal SED RATE [place] LAKEERGREN 2021 SED RATE 87 mm/hr Critically high <=20 [facility] Comment on above: Performed By: #### S EDR ####[facility] Gusuwscajk[address] [place], [place] [address]Dr. Farhat Leal BNPon 11-25-2021 Natriuretic peptide B (Bld) [Mass/Vol] 22138.0 pg/mL Critically high <=1,800.0 [facility] Comment on above: Performed By: #### C MP, BNP, CRP ####[facility] Wgaibcmxzc[address] [place], [place] [address]Dr. Farhat Leal CBC AUTO DIFFon 11-25-2021 BASO # 0.0 103/ul Normal 0.0-0.1 [facility] Comment on above: Performed By: #### C BC ####[facility] [address] [place] [id number]. Farhat Leal Basophils/100 WBC (Bld) 0.4 % Normal 0.2-2.0 [facility] Comment on above: Performed By: #### C BC ####[facility] Vtubrolnfx[address] [place] [id number]. Farhat Leal EO # 0.1 103/ul Normal 0.0-0.7 [facility] Comment on above: Performed By: #### C BC ####[facility] Gqltuwn[address] [place], [place] [id number]. Farhat Leal Eosinophils/100 WBC (Bld) 1.2 % Normal 0.9-7.0 [facility] Comment on above: Performed By: #### C BC ####[facility] Grexavzize[address] [place], [place] [address]Dr. Farhat Leal Erythrocyte distribution width (RBC) [Ratio] 13.7 % Normal 11.0-15.0 [facility] Comment on above: Performed By: #### C BC ####[facility] Snmjeyxuso[address] [place], [place] [address]Dr. Farhat Leal Hematocrit (Bld) [Volume fraction] 29.6 % Critically low 42.0-54.0 [facility] Comment on above: Performed By: #### C BC ####[facility] Rmocclwqij[address] [place], [place] [address]Dr. Farhat Leal Hemoglobin (Bld) [Mass/Vol] 9.3 g/dL Critically low 14.0-18.0 [facility] Comment on above: Performed By: #### C BC ####[facility] Dhqhwjbfxq[address] [place], [place] [address]Dr. Farhat Leal IG # 0.15 10e3/ul Critically high 0.00-0.03 [facility] Comment on above: Performed By: #### C BC ####[facility] Mdfz[address]jqdd[address] [place], [place] [address]Dr. Farhat Leal IG % 1.4 % Critically high 0.0-0.5 [facility] Comment on above: Performed By: #### C BC ####[facility] Dhplwpeyfd[address] [place] [phone]. Farhat Leal LYMPH # 0.8 103/ul Critically low 1.2-3.[address] [facility] Comment on above: Performed By: #### C BC ####[facility] N[address]gjjwsma[address] [place] [phone]. Farhat Leal Lymphocytes/100 WBC (Bld) 7.3 % Critically low 20.5-60.0 [facility] Comment on above: Performed By: #### C BC ####[facility] [address]qsxftjia[address] [place] [phone]. Farhat Lael MANUAL DIFF REQ NO Normal [place] Comment on above: Performed By: #### C BC ####[facility] Gvyknuxvrh[address] [place] [phone]. Farhat Leal MCH (RBC) [Entitic mass] 29.3 pg Normal 25.9-34.0 [facility] Comment on above: Performed By: #### C BC ####[facility] Voezmitvfg[address] [place] [phone]. Farhat Leal MCHC (RBC) [Mass/Vol] 31.4 g/dL Normal 29.9-35.2 [facility] Comment on above: Performed By: #### C BC ####[facility] Hqevvbdhou[address] [place] [phone]. Farhat Leal MCV (RBC) [Entitic vol] 93.4 fL Normal 80.0-94.0 [facility] Comment on above: Performed By: #### C BC ####[facility] Enatxxtdmn[address] [place] [phone] Leal MONO # 1.3 103/ul Critically high 0.3-0.8 [facility] Comment on above: Performed By: #### C BC ####[facility] Impykuombg4193 [place] [phone]. Farhat Leal Monocytes/100 WBC (Bld) 12.3 % Critically high 1.7-12.0 [facility] Comment on above: Performed By: #### C BC ####[facility] [address]cfjzerkg[address] [place] [address]Dr. Farhat Leal NEUT # 8.4 103/ul Critically high 1.4-6.5 [facility] Comment on above: Performed By: #### C BC ####[facility] Huaazcuydo[address] [place] [address]Dr. Farhat Leal Neutrophils/100 WBC (Bld) 77.4 % Critically high 43.0-75.0 [facility] Comment on above: Performed By: #### C BC ####[facility] Ipoklcrpfb46[address] [place] [address]Dr. Farhat Leal Platelet mean volume (Bld) [Entitic vol] 9.8 fL Normal 9.5-13.5 [facility] Comment on above: Performed By: #### C BC ####[facility] Xiiqedfqbh[address] [place] [address]Dr. Farhat Leal PLT 390 103/ul Normal 150-450 [facility] Comment on above: Performed By: #### C BC ####[facility] Tycoejwnjf[address] [place] [address]Dr. Farhat Leal RBC 3.17 106/ul Critically low 4.70-6.10 [facility] Comment on above: Performed By: #### C BC ####[facility] Fvwzznmjbl[address] [place] [address]Dr. Farhat Leal WBC 10.9 103/ul Normal 4.0-11.0 [facility] Comment on above: Performed By: #### C BC ####[facility] Jtehqsqsqc[address] [place] [phone] Farhat Elvis CRPon 11-25-2021 CRP 27.2 mg/dL Critically high <=1.0 [facility] Comment on above: Performed By: #### C MP, BNP, CRP ####[facility] Bqynrryizc[address] [place] [phone] Leal PROF 14(COMP METB)on 10-11-2 022 Albumin [Mass/Vol] 1.5 g/dL Critically low 3.4-5.0 [facility] Comment on above: Performed By: #### C MP, BNP, CRP ####[facility] [address]aldgb[address] [place], [place] [address]Dr. Farhat Leal Albumin/Globulin [Mass ratio] 0.4 {ratio} Normal [facility] Comment on above: Performed By: #### C MP, BNP, CRP ####[facility] Ebrfwypted[address] [place], [place] [address]Dr. Farhat Leal ALP [Catalytic activity/Vol] 86 U/L Normal 46-116 [facility] Comment on above: Performed By: #### C MP, BNP, CRP ####[facility] Jzep[address]xejv[address] [place], [place] [address]Dr. Farhat Leal ALT [Catalytic activity/Vol] 34 U/L Normal 16-63 [facility] Comment on above: Performed By: #### C MP, BNP, CRP ####[facility] Jnkjlmdofy[address] [place], [place] [address]Dr. Farhat Leal Anion gap [Moles/Vol] 17.8 mmol/L Normal [facility] Comment on above: Performed By: #### C MP, BNP, CRP ####[facility] Oyapkfpzur[address] [place], [place] [address]Dr. Farhat Leal AST [Catalytic activity/Vol] 48 U/L Critically high 15-37 [facility] Comment on above: Performed By: #### C MP, BNP, CRP ####[facility] Uqimlbimfc[address] [place], [place] [address]Dr. Farhat Leal Bilirubin [Mass/Vol] 0.8 mg/dL Normal 0.2-1.0 [facility] Comment on above: Performed By: #### C MP, BNP, CRP ####[facility] Zqmqndalbh[address] [place], [place] [address]Dr. Farhat Leal Calcium [Mass/Vol] 8.3 mg/dL Critically low 8.5-10.1 [facility] Comment on above: Performed By: #### C MP, BNP, CRP ####[facility] Ikyfshpimj9[address] [place] [address]Dr. Farhat Leal Chloride [Moles/Vol] 97 mmol/L Critically low 98-107 [facility] Comment on above: Performed By: #### C MP, BNP, CRP ####[facility] Eimvwfthhk97[address] [place] [address]Dr. Farhat Leal CO2 [Moles/Vol] 23.0 mmol/L Normal 21.0-32.0 [facility] Comment on above: Performed By: #### C MP, BNP, CRP ####[facility] Skmldtgbzq62[address] [place] [address]Dr. Farhat Leal Creatinine [Mass/Vol] 1.68 mg/dL Critically high 0.70-1.30 [facility] Comment on above: Performed By: #### C MP, BNP, CRP ####[facility] Irtvtjihgx[address] [place], [place] [address]Dr. Farhat Leal EGFR-AF ETHIOPIAN 48 mL/min/1.73m2 Critically low >=60 [facility] Comment on above: Performed By: #### C MP, BNP, CRP ####[facility] Fmdgpqbyml[address] [place], [place] [address]Dr. Farhat Lael EGFR-NON AF ETHIOPIAN 40 mL/min/1.73m2 Critically low >=60 [facility] Comment on above: Performed By: #### C MP, BNP, CRP ####[facility] Pnazkdrwht[address] [place], [place] [address]Dr. Farhat Leal Globulin (S) [Mass/Vol] 3.9 g/dL Normal [facility] Comment on above: Performed By: #### C MP, BNP, CRP ####[facility] Arxlmlcuaq64[address] [place] [address]Dr. Farhat Leal Glucose [Mass/Vol] 282 mg/dL Critically high 74-106 [facility] Comment on above: Performed By: #### C MP, BNP, CRP ####[facility] Tabkfgxjnk[address] [place], [place] [address]Dr. Farhat Leal Potassium [Moles/Vol] 4.8 mmol/L Normal 3.5-5.1 [facility] Comment on above: Performed By: #### C MP, BNP, CRP ####[facility] Rotdgxhlji[address] [place] [address]Dr. Farhat Leal Protein [Mass/Vol] 5.4 g/dL Critically low 6.4-8.2 [facility] Comment on above: Performed By: #### C MP, BNP, CRP ####[facility] Phkulzbnyv[address] [place], [place] [address]Dr. Farhat Leal Sodium [Moles/Vol] 133 mmol/L Critically low 136-145 Th [facility] Comment on above: Performed By: #### C MP, BNP, CRP ####[facility] Uddziwpqrg[address] [place], [place] [address]Dr. Farhat Leal Urea nitrogen [Mass/Vol] 40.0 mg/dL Critically high 7.0-18.0 [facility] Comment on above: Performed By: #### C MP, BNP, CRP ####[facility] Nemszhwbcd[address] [place], [place] [address]Dr. Farhat Leal Urea nitrogen/Creatinine [Mass ratio] 23.8 mg/mg Normal [facility] Comment on above: Performed By: #### C MP, BNP, CRP ####[facility] Vqkrtdajsh[address] [place], [place] [address]Dr. Farhat Leal PROTIMEon 11-25-2021 INR Coag (PPP) [Relative time] 1.48 {INR} Normal [facility] Comment on above: Performed By: #### P T ####[facility] Gxanfgbpir[address] [place], [place] [address]Dr. Farhat Leal INR GUIDELINES SEE BELOW Normal [facility] Comment on above: Result Comment: MALINA RED INR: 2.0 - 3.0 CONDITIONS NOT LISTED BELOW 2.5 - 3.5 FOR PROSTHETIC HEART VALVE REPLACEMENT 2.5 - 3.5 RECURRENT THROMBOSIS Performed By: #### P T ####[facility] Hsrdehisdu[address] [place], [place] [address]Dr. Farhat Leal PT Coag (PPP) [Time] 15.6 s Critically high 9.0-11.6 [facility] Comment on above: Performed By: #### P T ####[facility] Lvyuchbckw[address] [place], [place] [address]Dr. Farhat Leal SED RATE WESTERGRENon 2021 SED RATE 76 mm/hr Critically high <=20 [facility] Comment on above: Performed By: #### S EDR ####[facility] Fhugzueday[address] [place], [place] [address]Dr. Farhat Leal BNPon 11-24-2021 Natriuretic peptide B (Bld) [Mass/Vol] 75131.0 pg/mL Critically high <=1,800.0 [facility] Comment on above: Performed By: #### B TECHNICAL PUBLICATIONS MANAGER, CMP, CRP ####[facility] Quucspzpys[address] [place], [place] [address]Dr. Farhat Leal CBC AUTO DIFFon 11-24-2021 BASO # 0.0 103/ul Normal 0.0-0.1 [facility] Comment on above: Performed By: #### C BC ####[facility] Ornahixvjd[address] [place], [place] [address]Dr. Farhat Leal Basophils/100 WBC (Bld) 0.3 % Normal 0.2-2.0 [facility] Comment on above: Performed By: #### C BC ####[facility] Ytmvsuusmy[address] [place], [place] [address]Dr. Farhat Leal EO # 0.2 103/ul Normal 0.0-0.7 [facility] Comment on above: Performed By: #### C BC ####[facility] Rdkwsivjxp[address] [place], [place] [address]Dr. Farhat Leal Eosinophils/100 WBC (Bld) 1.2 % Normal 0.9-7.0 [facility] Comment on above: Performed By: #### C BC ####[facility] Koqedcjjxd[address] [place], [place] [address]Dr. Farhat Leal Erythrocyte distribution width (RBC) [Ratio] 13.5 % Normal 11.0-15.0 [facility] Comment on above: Performed By: #### C BC ####[facility] [address]xcnszsbq[address] [place] [address]Dr. Farhat Leal Hematocrit (Bld) [Volume fraction] 31.1 % Critically low 42.0-54.0 [facility] Comment on above: Performed By: #### C BC ####[facility] Ihaqkhgfmj[address] [place] [address]Dr. Madelynlorri Leal Hemoglobin (Bld) [Mass/Vol] 10.0 g/dL Critically low 14.0-18.0 [facility] Comment on above: Performed By: #### C BC ####[facility] Mzcpvriupz1454 [place] [address]Dr. Farhat Leal IG # 0.13 10e3/ul Critically high 0.00-0.03 [facility] Comment on above: Performed By: #### C BC ####[facility] Tkjkusxply[address] [place], [place] [address]Dr. Farhat Leal IG % 1.0 % Critically high 0.0-0.5 [facility] Comment on above: Performed By: #### C BC ####[facility] [address]xtthcmm[address] [place], [place] [address]Dr. Madelynlorri Leal LYMPH # 0.7 103/ul Critically low 1.2-3.[address] [facility] Comment on above: Performed By: #### C BC ####[facility] Bdknltplvx34[address] [place] [address]Dr. Farhat Leal Lymphocytes/100 WBC (Bld) 4.9 % Critically low 20.5-60.0 [facility] Comment on above: Performed By: #### C BC ####[facility] Adijihswhk[address] [place] [address]Dr. Madelynlorri Leal MANUAL DIFF REQ NO Normal [facility] Comment on above: Performed By: #### C BC ####[facility] Uueqpusazl24[address] [place] [address]Dr. Farhat Leal MCH (RBC) [Entitic mass] 29.6 pg Normal 25.9-34.0 [facility] Comment on above: Performed By: #### C BC ####[facility] Fewrvfnpoq8845 [place] [phone]. Farhat Elvis MCHC (RBC) [Mass/Vol] 32.2 g/dL Normal 29.9-35.2 [facility] Comment on above: Performed By: #### C BC ####[facility] Hywqjegptg6441 [place] [phone]. Farhat Leal MCV (RBC) [Entitic vol] 92.0 fL Normal 80.0-94.0 [facility] Comment on above: Performed By: #### C BC ####[facility] Mfqzlhbrdl5345 [place] [phone]. Farhat Leal MONO # 1.3 103/ul Critically high 0.3-0.8 [facility] Comment on above: Performed By: #### C BC ####[facility] Bxsrngptgl4910 [place] [address]Dr. Farhat Leal Monocytes/100 WBC (Bld) 9.6 % Normal 1.7-12.0 [facility] Comment on above: Performed By: #### C BC ####[facility] Rdnthkazdk[address] [place], [place] [address]Dr. Farhat Leal NEUT # 11.2 103/ul Critically high 1.4-6.5 [facility] Comment on above: Performed By: #### C BC ####[facility] Wqvfmdrlxj[address] [place], [place] [address]Dr. Farhat Leal Neutrophils/100 WBC (Bld) 83.0 % Critically high 43.0-75.0 [facility] Comment on above: Performed By: #### C BC ####[facility] Bkqbrhonpg[address] [place], [place] [address]Dr. Farhat Leal Platelet mean volume (Bld) [Entitic vol] 9.5 fL Normal 9.5-13.5 [facility] Comment on above: Performed By: #### C BC ####[facility] Trpuhxfqdd13[address] [place], [place] [address]Dr. Farhat Leal PLT 395 103/ul Normal 150-450 [facility] Comment on above: Performed By: #### C BC ####[facility] Cqrrxwmgpu0179 [place] [phone]. Farhat Leal RBC 3.38 106/ul Critically low 4.70-6.10 [place] Comment on above: Performed By: #### C BC ####[facility] [address]aq[address]kmxc[address] [place], [place] [address]Bo. Farhat Leal WBC 13.4 103/ul Critically high 4.0-11.0 [facility] Comment on above: Performed By: #### C BC ####[facility] Omthtqpysl5733 [place] [phone]. Farhat Leal CRPon 11-24-2021 CRP 27.8 mg/dL Critically high <=1.0 [place] Comment on above: Performed By: #### B TECHNICAL PUBLICATIONS MANAGER, CMP, CRP ####[facility] [address]dctsbkngj[address] [place], [place] [address]Dr. Farhat Leal CULTURE ANAEROBICon 11-25-19 22 CULTURE ANAEROBIC Culture Observations : NO GROWTH OF ANAEROBES AT 72 HOURS. [facility] Comment on above: Performed By: #### A NACX ####[facility] Xmcupyvwkq[address] [place], [place] [address]Dr. Farhat Leal CULTURE ANAEROBIC Culture Observations : NO GROWTH OF ANAEROBES AT 72 HOURS. [facility] Comment on above: Performed By: #### A NACX ####[facility] Zkhnqxbxdw[address] [place], [place] [address]Dr. Farhat Leal CULTURE ANAEROBIC Culture Observations : No growth of anaerobes at 72 hours. [facility] Comment on above: Performed By: #### A NACX ####[facility] Udhxdabnqa[address] [place], [place] [address]Dr. Farhat Leal CULTURE ANAEROBIC Culture Observations : No growth of anaerobes at 72 hours. [facility] Comment on above: Performed By: #### A NACX ####[facility] Jchjtzxtkd[address] [place], [place] [address]Dr. Farhat Leal CULTURE URINEon 11-24-2021 CULTURE URINE Culture Observations : NO GROWTH. [facility] Comment on above: Performed By: #### U RCX ####[facility] Adw[address]ht[address]kp[address] [place], [place] [address]Dr. Farhat Leal ECHOCARDIO M/2D COMPLETEon 1 ECHOCARDIO M/2D COMPLETE Normal [facility] ER URINE PROFILEon 2 Bilirubin Ql (U) Negative Normal NEGATIVE [facility] Comment on above: Performed By: #### E RUR ####[facility] Jkwykjqjmt[address] [place], [place] [address]Dr. Farhat Leal Clarity (U) CLEAR Normal CLEAR [facility] Comment on above: Performed By: #### E RUR ####[facility] Azkvudsdhi[address] [place], [place] [address]Dr. Farhat Leal Color (U) YELLOW Normal YELLOW [facility] Comment on above: Performed By: #### E RUR ####[facility] [address]wehzcepxk[address] [place], [place] [address]Dr. Farhat Leal ERUAHD A micrscopic examination will be performed if indicated. Normal [facility] Comment on above: Performed By: #### E RUR ####[facility] Zphpcilgvr[address] [place], [place] [address]Dr. Farhat Leal Glucose Ql (U) Negative Normal NEGATIVE [facility] Comment on above: Performed By: #### E RUR ####[facility] Babvfzhtav[address] [place], [place] [address]Dr. Farhat Leal Hemoglobin Ql (U) Negative Normal NEGATIVE [facility] Comment on above: Performed By: #### E RUR ####[facility] Mogcrfxnle[address] [place], [place] [address]Dr. Farhat Leal Ketones Ql (U) TRACE Abnormal NEGATIVE [facility] Comment on above: Performed By: #### E RUR ####[facility] Gfipmadpwa[address] [place], [place] [address]Dr. Farhat Leal LEUKOCYTES Negative Normal NEGATIVE [facility] Comment on above: Performed By: #### E RUR ####[facility] Louayjczbz[address] [place], [place] [address]Dr. Farhat Leal Nitrite Ql (U) Negative Normal NEGATIVE [facility] Comment on above: Performed By: #### E RUR ####[facility] Tpztirswcl[address] [place], [place] [address]Dr. Farhat Leal pH (U) 5.5 [pH] Normal 5-9 [facility] Comment on above: Performed By: #### E RUR ####[facility] Rpahbotlxd[address] [place], [place] [address]Dr. Farhat Leal SPEC GRAVITY 1.015 Normal 1.005-<=1.[address] [place] [address] Comment on above: Performed By: #### E RUR ####[facility] Mnrmjohtuz[address] [place], [place] [address]Dr. Farhat Leal UA PROTEIN Negative Normal NEGATIVE/ TRACE [facility] Comment on above: Performed By: #### E RUR ####[facility] Tidofaljuq[address] [place], [place] [address]Dr. Farhat Leal UR MICRO IND NOT INDICATED Normal [place] Comment on above: Performed By: #### E RUR ####[facility] Qkcuazrdkw[address] [place], [place] [address]Dr. Farhat Leal Urobilinogen Qn (U) 0.2 {Boyd'U}/dL Normal 0.2 - 1. 0 [facility] Comment on above: Performed By: #### E RUR ####[facility] Bwnhdhaaby[address] [place], [place] [address]Dr. Farhat Leal GRAM STAINon 11-24-2021 DIPHTHEROIDS Normal [facility] Comment on above: Performed By: #### G STAIN ####[facility] [address]yvfgqkkf[address] [place], [place] [address]Dr. Farhat Leal EPITHELIALS Normal [facility] Comment on above: Performed By: #### G STAIN ####[facility] [address]xb[address]idyqyk[address] [place], [place] [address]Dr. Farhat Leal FUNGAL ELEMENTS Normal [facility] Comment on above: Performed By: #### G STAIN ####[facility] Qssyaqjxmg[address] [place], [place] [address]Dr. Farhat Leal GRAM NEG BACILLI Normal The [facility] Comment on above: Performed By: #### G STAIN ####[facility] [address]xu[address]dcrw26[address] [place] [address]Dr. Farhat Leal GRAM NEG DIPPLOCOCCI Normal [facility] Comment on above: Performed By: #### G STAIN ####[facility] X[address]efhwvw[address] [place] [address]Dr. Farhat Leal GRAM POS BACILLI Normal [facility] Comment on above: Performed By: #### G STAIN ####[facility] Kaqsmnjqos[address] [place] [address]Dr. Farhat Leal GRAM POSITIVE COCCI FEW Normal [facility] Comment on above: Performed By: #### G STAIN ####[facility] [address]yqovnzd[address] [place], [place] [address]Dr. Farhat Leal GRAM STAIN SOURCE RT ACHILLES TENDON Normal [facility] Comment on above: Performed By: #### G STAIN ####[facility] Qecvjiagjn[address] [place], [place] [address]Dr. Farhat Leal GS_DIPTH Normal [facility] Comment on above: Performed By: #### G STAIN ####[facility] Ss[address]qfr[address] [place], [place] [address]Dr. Farhat Leal WBC RARE Normal [facility] Comment on above: Performed By: #### G STAIN ####[facility] Ftrljwzgmr[address] [place], [place] [address]Dr. Farhat Leal COMMENTS NO ORGANISMS OBSERVED Normal [facility] Comment on above: Performed By: #### G STAIN ####[facility] Afecfztxca[address] [place] [address]Dr. Farhat Leal DIPHTHEROIDS Normal [facility] Comment on above: Performed By: #### G STAIN ####[facility] [address]pehplelei[address] [place], [place] [address]Dr. Farhat Leal EPITHELIALS Normal [facility] Comment on above: Performed By: #### G STAIN ####[facility] Cubsxijrcp[address] [place], [place] [address]Dr. Farhat Leal FUNGAL ELEMENTS Normal [facility] Comment on above: Performed By: #### G STAIN ####[facility] [address]tk[address]hoequn[address] [place] [address]Dr. Farhat Leal GRAM NEG BACILLI Normal [facility] Comment on above: Performed By: #### G STAIN ####[facility] Kdzsqeyfxa75[address] [place] [address]Dr. Farhat Leal GRAM NEG DIPPLOCOCCI Normal [facility] Comment on above: Performed By: #### G STAIN ####[facility] Uqujlrnhqz[address] [place] [address]Dr. Farhat Leal GRAM POS BACILLI Normal [facility] Comment on above: Performed By: #### G STAIN ####[facility] Sp[address]krpky[address] [place], [place] [address]Dr. Farhat Leal GRAM POSITIVE COCCI Normal The [facility] Comment on above: Performed By: #### G STAIN ####[facility] [place] [address] [place], [place] [address]Dr. Farhat Leal GRAM STAIN SOURCE RT CALCANEOUS Normal [facility] Comment on above: Performed By: #### G STAIN ####[facility] Plyhcwjpdf[address] [place] [address]Dr. Farhat Leal GS_DIPTH Normal [facility] Comment on above: Performed By: #### G STAIN ####[facility] Duxosddxal[address] [place] [address]Dr. Farhat Leal WBC RARE Normal [facility] Comment on above: Performed By: #### G STAIN ####[facility] Szdkvmhsfl[address] [place] [address]Dr. Farhat Leal DIPHTHEROIDS Normal [facility] Comment on above: Performed By: #### G STAIN ####[facility] Cybzyxdhwt[address] [place] [address]Dr. Farhat Leal EPITHELIALS Normal [facility] Comment on above: Performed By: #### G STAIN ####[facility] Mleyffwpcs[address] [place] [address]Dr. Farhat Leal FUNGAL ELEMENTS Normal The [facility] Comment on above: Performed By: #### G STAIN ####[facility] Zdmiyljwqw[address] [place] [id number]. Farhat Leal GRAM NEG BACILLI FEW Normal The [facility] Comment on above: Performed By: #### G STAIN ####[facility] Fdoollvpkh4[address] [place] [phone]. Farhat Leal GRAM NEG DIPPLOCOCCI Normal [facility] Comment on above: Performed By: #### G STAIN ####[facility] Xpfvlqemcq[address] [place] [address]Dr. Farhat Leal GRAM POS BACILLI Normal The [facility] Comment on above: Performed By: #### G STAIN ####[facility] Rjecrijmnk[address] [place] [address]Dr. Farhat Leal GRAM POSITIVE COCCI FEW Normal The [facility] Comment on above: Performed By: #### G STAIN ####[facility] W[address]idrend[address] [place], [place] [address]Dr. Farhat Leal GRAM STAIN SOURCE #2 Rt foot abscess Normal [facility] Comment on above: Performed By: #### G STAIN ####[facility] Yfxansedsb[address] [place] [address]Dr. Farhat Leal GS_DIPTH Normal [facility] Comment on above: Performed By: #### G STAIN ####[facility] Czrxnopvbd[address] [place] [address]Dr. Farhat Leal WBC RARE Normal [facility] Comment on above: Performed By: #### G STAIN ####[facility] Ogsqyvokdt[address] [place] [address]Dr. Farhat Leal DIPHTHEROIDS Normal [facility] Comment on above: Performed By: #### G STAIN ####[facility] Epprutndlf[address] [place] [address]Dr. Farhat Leal EPITHELIALS Normal [facility] Comment on above: Performed By: #### G STAIN ####[facility] Yjdafbczvb28[address] [place] [address]Dr. Farhat Leal FUNGAL ELEMENTS Normal The [facility] Comment on above: Performed By: #### G STAIN ####[facility] Ylomsxcoxv[address] [place] [address]Dr. Farhat Leal GRAM NEG BACILLI FEW Normal The [facility] Comment on above: Performed By: #### G STAIN ####[facility] Hnurwxhsjo[address] [place] [address]Dr. Farhat Leal GRAM NEG DIPPLOCOCCI Normal [facility] Comment on above: Performed By: #### G STAIN ####[facility] Nqzfrugvmh[address] [place] [address]Dr. Farhat Leal GRAM POS BACILLI Normal The [facility] Comment on above: Performed By: #### G STAIN ####[facility] R[address]ocu[address] [place], [place] [address]Dr. Farhat Leal GRAM POSITIVE COCCI FEW Normal The [facility] Comment on above: Performed By: #### G STAIN ####[facility] Ynktapwpmi[address] [place], [place] [address]Dr. Farhat Leal GRAM STAIN SOURCE #1 Rt foot abscess Normal [facility] Comment on above: Performed By: #### G STAIN ####[facility] Vchjrodlyg[address] [place], [place] [address]Dr. Farhat Leal GS_DIPTH Normal [facility] Comment on above: Performed By: #### G STAIN ####[facility] Kbcoebvygq[address] [place], [place] [address]Dr. Farhat Leal WBC NONE SEEN Normal [facility] Comment on above: Performed By: #### G STAIN ####[facility] Pvypxwjiig[address] [place], [place] [address]Dr. Farhat Leal POINT OF CARE GLUCOSEon 11-15 0 Glucose [Mass/Vol] 331 mg/dL Critically high 74-106 [facility] Comment on above: Performed By: #### P OCGLUC ####[facility] Ebfkehtofp[address] [place], [place] [address]Dr. Farhat Leal Glucose [Mass/Vol] 236 mg/dL Critically high 74-106 [facility] Comment on above: Performed By: #### P OCGLUC ####[facility] Zaopevsuqn[address] [place], [place] [address]Dr. Farhat Leal PROF 14(COMP METB)on 022 Albumin [Mass/Vol] 1.6 g/dL Critically low 3.4-5.0 [facility] Comment on above: Performed By: #### B TECHNICAL PUBLICATIONS MANAGER, CMP, CRP ####[facility] Akqjxhejcv[address] [place] [address]Dr. Farhat Leal Albumin/Globulin [Mass ratio] 0.4 {ratio} Normal [facility] Comment on above: Performed By: #### B TECHNICAL PUBLICATIONS MANAGER, CMP, CRP ####[facility] Dsgqyhhtnx[address] [place] [address]Dr. Farhat Leal ALP [Catalytic activity/Vol] 94 U/L Normal 46-116 [facility] Comment on above: Performed By: #### B TECHNICAL PUBLICATIONS MANAGER, CMP, CRP ####[facility] Meseahencp[address]64 [place] [address]Dr. Farhat Leal ALT [Catalytic activity/Vol] 49 U/L Normal 16-63 [facility] Comment on above: Performed By: #### B TECHNICAL PUBLICATIONS MANAGER, CMP, CRP ####[facility] Rkxfmcvbxo[address] [place], [place] [address]Dr. Farhat Leal Anion gap [Moles/Vol] 12.5 mmol/L Normal [facility] Comment on above: Performed By: #### B TECHNICAL PUBLICATIONS MANAGER, CMP, CRP ####[facility] Nyxuhdoyjv[address] [place], [place] [address]Dr. Farhat Leal AST [Catalytic activity/Vol] 102 U/L Critically high 15-37 [facility] Comment on above: Performed By: #### B TECHNICAL PUBLICATIONS MANAGER, CMP, CRP ####[facility] Lyaztppbxo[address] [place] [address]Dr. Farhat Leal Bilirubin [Mass/Vol] 0.8 mg/dL Normal 0.2-1.0 [facility] Comment on above: Performed By: #### B TECHNICAL PUBLICATIONS MANAGER, CMP, CRP ####[facility] Odsnudpxva[address] [place], [place] [address]Dr. Farhat Leal Calcium [Mass/Vol] 8.4 mg/dL Critically low 8.5-10.1 [facility] Comment on above: Performed By: #### B TECHNICAL PUBLICATIONS MANAGER, CMP, CRP ####[facility] Osaobhcirn14[address] [place] [phone]. Farhat Leal Chloride [Moles/Vol] 96 mmol/L Critically low 98-107 [facility] Comment on above: Performed By: #### B TECHNICAL PUBLICATIONS MANAGER, CMP, CRP ####[facility] Gvldjtphid[address] [place] [address]Dr. Farhat Leal CO2 [Moles/Vol] 24.8 mmol/L Normal 21.0-32.0 [facility] Comment on above: Performed By: #### B TECHNICAL PUBLICATIONS MANAGER, CMP, CRP ####[facility] Vvouzgjwhu[address] [place] [address]Dr. Farhat Leal Creatinine [Mass/Vol] 1.36 mg/dL Critically high 0.70-1.30 [facility] Comment on above: Performed By: #### B TECHNICAL PUBLICATIONS MANAGER, CMP, CRP ####[facility] Otkpzmfjwz[address] [place], [place] [address]Dr. Farhat Leal EGFR-AF ETHIOPIAN >60 Normal >=60 [facility] Comment on above: Performed By: #### B TECHNICAL PUBLICATIONS MANAGER, CMP, CRP ####[facility] Bgpzyszeog[address] [place], [place] [address]Dr. Farhat Leal EGFR-NON AF ETHIOPIAN 51 mL/min/1.73m2 Critically low >=60 [facility] Comment on above: Performed By: #### B TECHNICAL PUBLICATIONS MANAGER, CMP, CRP ####[facility] Rjutdckzyc[address] [place] [address]Dr. Farhat Leal Globulin (S) [Mass/Vol] 4.1 g/dL Normal [facility] Comment on above: Performed By: #### B TECHNICAL PUBLICATIONS MANAGER, CMP, CRP ####[facility] Adpljrmbzf99[address] [place] [address]Dr. Farhat Leal Glucose [Mass/Vol] 204 mg/dL Critically high 74-106 [facility] Comment on above: Performed By: #### B TECHNICAL PUBLICATIONS MANAGER, CMP, CRP ####[facility] Nzmybirpkt[address] [place] [address]Dr. Farhat Leal Potassium [Moles/Vol] 4.3 mmol/L Normal 3.5-5.1 [facility] Comment on above: Performed By: #### B TECHNICAL PUBLICATIONS MANAGER, CMP, CRP ####[facility] Jckavbikqz6[address] [place] [address]Dr. Farhat Leal Protein [Mass/Vol] 5.7 g/dL Critically low 6.4-8.2 Th [facility] Comment on above: Performed By: #### B TECHNICAL PUBLICATIONS MANAGER, CMP, CRP ####[facility] Jymaoismgc[address] [place], [place] [address]Dr. Farhat Leal Sodium [Moles/Vol] 129 mmol/L Critically low 136-145 Th [facility] Comment on above: Performed By: #### B TECHNICAL PUBLICATIONS MANAGER, CMP, CRP ####[facility] Uyplzoqpda[address] [place], [place] [address]Dr. Farhat Leal Urea nitrogen [Mass/Vol] 41.0 mg/dL Critically high 7.0-18.0 [facility] Comment on above: Performed By: #### B TECHNICAL PUBLICATIONS MANAGER, CMP, CRP ####[facility] Tehozqkrzl[address] [place], [place] [address]Dr. Farhat Leal Urea nitrogen/Creatinine [Mass ratio] 30.1 mg/mg Normal [facility] Comment on above: Performed By: #### B TECHNICAL PUBLICATIONS MANAGER, CMP, CRP ####[facility] Jpunojdrdw[address] [place], [place] [address]Dr. Farhat Leal PROTIMEon 11-24-2021 INR Coag (PPP) [Relative time] 2.20 {INR} Normal [facility] Comment on above: Performed By: #### P T ####[facility] Uqnarszsqx[address] [place], [place] [address]Dr. Farhat Leal INR GUIDELINES SEE BELOW Normal The [facility] Comment on above: Result Comment: MALINA RED INR: 2.0 - 3.0 CONDITIONS NOT LISTED BELOW 2.5 - 3.5 FOR PROSTHETIC HEART VALVE REPLACEMENT 2.5 - 3.5 RECURRENT THROMBOSIS Performed By: #### P T ####[facility] Vfzncyxoda[address] [place], [place] [address]Dr. Farhat Leal PT Coag (PPP) [Time] 22.6 s Critically high 9.0-11.6 [facility] Comment on above: Performed By: #### P T ####[facility] Enwhirqaeu[address] [place] [phone]. Farhat Elvis [facility] mm/hr Critically high <=20 [facility] Comment on above: Performed By: #### S EDR ####[facility] Yvefljtytb[address] [place], [place] [id number]. Farhat Elvis BLOOD CULTURE ID PANELon A. baumannii Not detected Normal NOT DETECTED The [facility] Comment on above: Performed By: #### B CID2 ####[facility] Xqovsxueyo[address] [place], [place] [address]Dr. Farhat Evlis Bacteriodes fragilis Not detected Normal NOT DETECTED [facility] Comment on above: Performed By: #### B CID2 ####[facility] Egivvzjgjs[address] [place], [place] [address]Dr. Farhat Elvis BCID CONTROLS PASSED Normal The [facility] Comment on above: Performed By: #### B CID2 ####[facility] Oojllgghxt[address] [place], [place] [id number]. Farhat Leal BCIDBTHD BLOOD CULTURE BOTTLE INFORMATION Normal [facility] Comment on above: Performed By: #### B CID2 ####[facility] Amrpghqmfn57[address] [place] [phone]. Farhat Leal BCIDHD1 ANTIMICROBIAL RESISTANCE GENES Normal [facility] Comment on above: Performed By: #### B CID2 ####[facility] Byurvcogcu[address] [place], [place] [address]Dr. Madelynlorri Leal BCIDHD2 SEE BELOW Normal [facility] Comment on above: Result Comment: Note : Antimicrobial resitance can occur via multiple mechanisms. A Not Detected result for the [employer] antomicrobial resistance gene assays does not indicate antimicrobial susceptibility. Subculturing is required for species identification and susceptibility testing of isolates. Performed By: #### B CID2 ####[facility] Amlaeaqlsq[address] [place], [place] [address]Dr. Farhat Elvis BCIDHD3 Positive Normal [facility] Comment on above: Performed By: #### B CID2 ####[facility] Vchgnyzugu6[address] [place] [address]Dr. Farhat Leal BCIDHD4 Negative Normal [facility] Comment on above: Performed By: #### B CID2 ####[facility] Yctlibxgne4229 [place] [address]Dr. Farhat Leal BCIDHD5 YEAST Normal [facility] Comment on above: Performed By: #### B CID2 ####[facility] Tospuiitgh[address] [place], [place] [address]Dr. Farhat Leal Bottle Set: Set 1 Normal [facility] Comment on above: Performed By: #### B CID2 ####[facility] Mrqnvivnmf[address] [place], [place] [address]Dr. Farhat Leal Bottle: Aerobic Normal [facility] Comment on above: Performed By: #### B CID2 ####[facility] Vhfjqvxuso[address] [place], [place] [address]Dr. Farhat Leal C. neoformans/gattii Not detected Normal NOT DETECTED [facility] Comment on above: Performed By: #### B CID2 ####[facility] Gozjtgehcd[address] [place], [place] [address]Dr. Farhat [facility] Disha albicans Not detected Normal NOT DETECTED [facility] Comment on above: Performed By: #### B CID2 ####[facility] Habdcroysa[address] [place], [place] [address]Dr. Farhat Leal Disha auris Not detected Normal NOT DETECTED The [facility] Comment on above: Performed By: #### B CID2 ####[facility] Mfltjoerra[address] [place], [place] [address]Dr. Farhat Leal Disha glabrata Not detected Normal NOT DETECTED [facility] Comment on above: Performed By: #### B CID2 ####[facility] Ykbvweuugv[address] [place], [place] [address]Dr. Farhat Leal Disha Krusei Not detected Normal NOT DETECTED The [facility] Comment on above: Performed By: #### B CID2 ####[facility] Ivktciehuh[address] [place] [address]Dr. Madelynlorri Elvis Disha Parapsilosis Not detected Normal NOT DETECTED [facility] Comment on above: Performed By: #### B CID2 ####[facility] Frhsytlfdi[address] [place], [place] [address]Dr. Farhat Elvis Disha Tropicalis Not detected Normal NOT DETECTED [facility] Comment on above: Performed By: #### B CID2 ####[facility] Rdivyvasiu[address] [place], [place] [address]Dr. Farhat Leal CTX-M Resistant Gene Not Applicable Normal NOT DETECTE D [facility] Comment on above: Performed By: #### B CID2 ####[facility] Wcnghzfziu8[address] [place], [place] [address]Dr. Farhat Leal E. Cloacae complex Not detected Normal NOT DETECTED [facility] Comment on above: Performed By: #### B CID2 ####[facility] Xjtpdemgbl[address] [place], [place] [address]Dr. Farhat Leal E. faecalis Not detected Normal NOT DETECTED [facility] Comment on above: Performed By: #### B CID2 ####[facility] Apiwrkvyvt688[address] [place], [place] [address]Dr. Farhat Leal E. faecium Not detected Normal NOT DETECTED The [facility] Comment on above: Performed By: #### B CID2 ####[facility] Wfoxzkpygc[address] [place], [place] [address]Dr. Farhat Leal Enterobacteriaceae Not detected Normal NOT DETECTED [facility] Comment on above: Performed By: #### B CID2 ####[facility] Gkbqlhdswb[address] [place], [place] [address]Dr. Farhat Leal Escherichia coli Not detected Normal NOT DETECTED [facility] Comment on above: Performed By: #### B CID2 ####[facility] Rsidutygts[address] [place], [place] [address]Dr. Farhat Leal H. influenzae Not detected Normal NOT DETECTED The [facility] Comment on above: Performed By: #### B CID2 ####[facility] Vrlbzueikp[address] [place], [place] [address]Dr. Farhat Leal IMP Resistant Gene Not Applicable Normal NOT DETECTED [facility] Comment on above: Performed By: #### B CID2 ####[facility] Zayervvtry27[address] [place] [address]Dr. Farhat Leal K. oxytoca Not detected Normal NOT DETECTED The [facility] Comment on above: Performed By: #### B CID2 ####[facility] Dcpgrbbbqs5554 [place] [address]Dr. Farhat Leal K. pneumoniae Not detected Normal NOT DETECTED The [facility] Comment on above: Performed By: #### B CID2 ####[facility] Rukhujftvi[address] [place], [place] [address]Dr. Farhat Leal Klebsiella aerogenes Not detected Normal NOT DETECTED [facility] Comment on above: Performed By: #### B CID2 ####[facility] Zqthxelyuh[address] [place], [place] [address]Dr. Farhat Leal KPC Resistant Gene Not Applicable Normal NOT DETECTED [facility] Comment on above: Performed By: #### B CID2 ####[facility] Rfomwewoud[address] [place], [place] [address]Dr. Farhat Leal List. monocytogenes Not detected Normal NOT DETECTED [facility] Comment on above: Performed By: #### B CID2 ####[facility] Tbhmknlvip[address] [place], [place] [address]Dr. Farhat Leal Mcr-1 Resistant Gene Not Applicable Normal NOT DETECTE D [facility] Comment on above: Performed By: #### B CID2 ####[facility] Zmxrdvehrn[address] [place], [place] [address]Dr. Madelynlan Elvis mecA/C Not Applicable Normal NOT DETECTED The [facility] Comment on above: Performed By: #### B CID2 ####[facility] Jlraosayko[address] [place], [place] [address]Dr. Farhat Leal mecA/C MREJ Detected Abnormal NOT DETECTED The [facility] Comment on above: Performed By: #### B CID2 ####[facility] Iscllgfvyh[address] [place], [place] [address]Dr. Farhat Leal N. meningitidis Not detected Normal NOT DETECTED The [facility] Comment on above: Performed By: #### B CID2 ####[facility] Ntzhhyrskr[address] [place] [address]Dr. Farhat Leal NDM Resistant Gene Not Applicable Normal NOT DETECTED [facility] Comment on above: Performed By: #### B CID2 ####[facility] Hwipmlbssf[address] [place] [address]Dr. Farhat Leal Oxa-48-like Not Applicable Normal NOT DETECTED The [facility] Comment on above: Performed By: #### B CID2 ####[facility] Xkxrlwgqcz189[address] [place], [place] [address]Dr. Farhat Leal Proteus Not detected Normal NOT DETECTED The [facility] Comment on above: Performed By: #### B CID2 ####[facility] Hwycnygita[address] [place], [place] [address]Dr. Farhat Leal Pseud. aeruginosa Not detected Normal NOT DETECTED [facility] Comment on above: Performed By: #### B CID2 ####[facility] Vvwxophjwj[address] [place], [place] [address]Dr. Farhat Leal S. maltophilia Not detected Normal NOT DETECTED The [facility] Comment on above: Performed By: #### B CID2 ####[facility] Ppdnmfzrfs[address] [place], [place] [address]Dr. Farhat Leal Salmonella Not detected Normal NOT DETECTED The [facility] Comment on above: Performed By: #### B CID2 ####[facility] Zerxknqacv[address] [place], [place] [address]Dr. Farhat Leal Seratia marcescens Not detected Normal NOT DETECTED [facility] Comment on above: Performed By: #### B CID2 ####[facility] Ybratszzmc[address] [place], [place] [address]Dr. Farhat Leal Site: Rt Hand Normal [facility] Comment on above: Performed By: #### B CID2 ####[facility] Htqojnehca[address] [place], [place] [address]Dr. Farhat Leal Staph. aureus Detected Abnormal NOT DETECTED [facility] Comment on above: Performed By: #### B CID2 ####[facility] Apvkpaklle[address] [place], [place] [address]Dr. Farhat Leal Staph. epidermidis Not detected Normal NOT DETECTED [facility] Comment on above: Performed By: #### B CID2 ####[facility] Yymopqgvms[address] [place], [place] [address]Dr. Farhat Leal Staph. lugdunensis Not detected Normal NOT DETECTED [facility] Comment on above: Performed By: #### B CID2 ####[facility] Kfdvpbpgbr[address] [place], [place] [address]Dr. Farhat Leal Staphylococcus Detected Abnormal NOT DETECTED The [facility] Comment on above: Performed By: #### B CID2 ####[facility] Ynuqrxzeyb[address] [place], [place] [address]Dr. Farhat Leal Strep. agalactiae Not detected Normal NOT DETECTED [facility] Comment on above: Performed By: #### B CID2 ####[facility] Nsswvqsvvy[address] [place], [place] [address]Dr. Farhat Leal Strep. pneumoniae Not detected Normal NOT DETECTED [facility] Comment on above: Performed By: #### B CID2 ####[facility] Wmwalrkwer[address] [place], [place] [address]Dr. Farhat Elvis Strep. pyogenes Not detected Normal NOT DETECTED The [facility] Comment on above: Performed By: #### B CID2 ####[facility] Zbhneujnmx[address] [place], [place] [address]Dr. Farhat Leal Streptococcus Not detected Normal NOT DETECTED The [facility] Comment on above: Performed By: #### B CID2 ####[facility] Xoszgdmjau[address] [place], [place] [address]Dr. Farhat Leal Teodoro/B Resist. Gene Not Applicable Normal NOT DETECTED [facility] Comment on above: Performed By: #### B CID2 ####[facility] Bnvzhybivm[address] [place], [place] [address]Dr. Farhat Leal VIM Resistant Gene Not Applicable Normal NOT DETECTED [facility] Comment on above: Performed By: #### B CID2 ####[facility] Uxyjosnvrq[address] [place] [address]Dr. Farhat Leal BNPon 11-23-2021 Natriuretic peptide B (Bld) [Mass/Vol] 05770.0 pg/mL Critically high <=1,800.0 [facility] Comment on above: Performed By: #### C MP, CMADM, BNP ####[facility] Dipwikqfix20[address] [place] [address]Dr. Farhat Leal CARDIAC AMANDA ADMITon 022 CK [Catalytic activity/Vol] 41 U/L Normal 39-308 [facility] Comment on above: Performed By: #### C MP, CMADM, BNP ####[facility] Nthixuohbo[address] [place], [place] [address]Dr. Farhat Leal CK.MB [Mass/Vol] 0.98 ng/mL Normal <=3.60 The [facility] Comment on above: Performed By: #### C MP, CMADM, BNP ####[facility] Lipcklubpw[address] [place], [place] [address]Dr. Farhat Leal HSTROP 30.1 pg/mL Normal 4.0-76.1 [facility] Comment on above: Result Comment: CUT- OFF POINTS HAVE BEEN ESTABLISHED BASED ON THE FOURTH UNIVERSAL DEFINITIONS OF MYOCARDIALINFARCTION. THE UPPER REFERENCE LIMIT (URL) OF TROPONIN, DEFINED THE 99TH PERCENTILE OFcTnI DISTRIBUTION IN A REFERENCE POPULATION, HAS BEEN CONFIRMED THE DECISION THRESHOLDFOR NC DIAGNOSIS. Performed By: #### C MP, CMADM, BNP ####[facility] [address]jvclibdzq[address] [place], [place] [address]Dr. Farhat Leal VALERIA 160 ng/mL Critically high 16-96 [facility] Comment on above: Performed By: #### C MP, CMADM, BNP ####[facility] [place] [address] [place] [address]Dr. Farhat Leal CBC AUTO DIFFon 11-23-2021 BASO # 0.0 103/ul Normal 0.0-0.1 [facility] Comment on above: Performed By: #### C BC ####[facility] Ttbqexsk[address] [place], [place] [address]Dr. Farhat Leal Basophils/100 WBC (Bld) 0.2 % Normal 0.2-2.0 [facility] Comment on above: Performed By: #### C BC ####[facility] Hxyfsganln[address] [place], [place] [address]Dr. Farhat Leal EO # 0.0 103/ul Normal 0.0-0.7 [facility] Comment on above: Performed By: #### C BC ####[facility] Rzzuhewaws[address] [place], [place] [address]Dr. Farhat Leal Eosinophils/100 WBC (Bld) 0.1 % Critically low 0.9-7.0 The [facility] Comment on above: Performed By: #### C BC ####[facility] Imiricupuo[address] [place], [place] [address]Dr. Farhat Leal Erythrocyte distribution width (RBC) [Ratio] 13.4 % Normal 11.0-15.0 [facility] Comment on above: Performed By: #### C BC ####[facility] Wmrznvwtzp[address] [place], [place] [address]Dr. Farhat Leal Hematocrit (Bld) [Volume fraction] 31.6 % Critically low 42.0-54.0 [facility] Comment on above: Performed By: #### C BC ####[facility] Wgtinvydje[address] [place], [place] [address]Dr. Farhat Leal Hemoglobin (Bld) [Mass/Vol] 10.4 g/dL Critically low 14.0-18.0 [facility] Comment on above: Performed By: #### C BC ####[facility] Egjysmpgpn[address] [place], [place] [address]Dr. Farhat Leal IG # 0.11 10e3/ul Critically high 0.00-0.03 The [facility] Comment on above: Performed By: #### C BC ####[facility] Wnheiigvwa[address] [place], [place] [address]Dr. Farhat Leal IG % 0.7 % Critically high 0.0-0.5 [facility] Comment on above: Performed By: #### C BC ####[facility] Ourubuxtgd[address] [place], [place] [address]Dr. Farhat Leal LYMPH # 0.5 103/ul Critically low 1.2-3.[address] [facility] Comment on above: Performed By: #### C BC ####[facility] [address]ljaf[address] [place] [address]Dr. Farhat Elvis Lymphocytes/100 WBC (Bld) 2.8 % Critically low 20.5-60.0 [facility] Comment on above: Performed By: #### C BC ####[facility] [address]vwpl[address] [place] [address]Dr. Farhat Leal MANUAL DIFF REQ NO Normal [facility] Comment on above: Performed By: #### C BC ####[facility] Lyejxkxqqm[address] [place] [address]Dr. Farhat Elvis MCH (RBC) [Entitic mass] 29.8 pg Normal 25.9-34.0 [facility] Comment on above: Performed By: #### C BC ####[facility] Kcsgindumz[address] [place] [address]Dr. Madelynlorri Leal MCHC (RBC) [Mass/Vol] 32.9 g/dL Normal 29.9-35.2 [facility] Comment on above: Performed By: #### C BC ####[facility] S[address]qyigjogi[address] [place] [address]Dr. Farhat Leal MCV (RBC) [Entitic vol] 90.5 fL Normal 80.0-94.0 [facility] Comment on above: Performed By: #### C BC ####[facility] Tffljxwowm[address] [place] [address]Dr. Farhat Leal MONO # 1.3 103/ul Critically high 0.3-0.8 [facility] Comment on above: Performed By: #### C BC ####[facility] Xabrflnwwi6[address] [place] [address]Dr. Farhat Leal Monocytes/100 WBC (Bld) 8.3 % Normal 1.7-12.0 [facility] Comment on above: Performed By: #### C BC ####[facility] [address]xlcznc[address] [place] [id number]. Farhat Leal NEUT # 13.9 103/ul Critically high 1.4-6.5 The [facility] Comment on above: Performed By: #### C BC ####[facility] F[address]qplmnxus[address] [place] [id number]. Farhat Leal Neutrophils/100 WBC (Bld) 87.9 % Critically high 43.0-75.0 [facility] Comment on above: Performed By: #### C BC ####[facility] Examujtamr[address] [place] [address]Dr. Farhat Leal Platelet mean volume (Bld) [Entitic vol] 9.3 fL Critically low 9.5-13.5 [facility] Comment on above: Performed By: #### C BC ####[facility] Crxctgjmdg[address] [place] [address]Dr. Farhat Leal PLT 390 103/ul Normal 150-450 [facility] Comment on above: Performed By: #### C BC ####[facility] Pjnnykuptg[address] [place], [place] [address]Dr. Farhat Leal RBC 3.49 106/ul Critically low 4.70-6.10 [facility] Comment on above: Performed By: #### C BC ####[facility] Icmbtdvyft[address] [place] [address]Dr. Farhat Leal WBC 15.9 103/ul Critically high 4.0-11.0 The [facility] Comment on above: Performed By: #### C BC ####[facility] Cymrstqnly[address] [place] [address] Farhat Leal CT HEAD WO CONon 11-23-2021 CT HEAD WO CON Normal The [facility] CULTURE BLOODon 11-23-2021 Microscopic examination of blood, culture Culture Observations: NO GROWTH AT 5 DAYS. Normal The [facility] Comment on above: Performed By: #### B LDCX2 ####[facility] Z[address]zftusqn[address] [place] [address]Dr. Farhat Leal Covid-19 PCR (CVDTB)on SARS-CoV-2 (COVID-19) RNA JOSH+probe Ql (Unsp spec) Not detected Normal NOT DETECTED The [facility] Comment on above: Result Comment: When diagnostic [...] for this test is supported by the Hospitality Aide of Health and Human Service's declaration [...] be used). Performed By: #### C VDTBH ####[facility] Hbedhqwmps[address] [place], [place] [address]Dr. Farhat Leal LACTATE/LACTIC ACIDon 2021 Lactate [Moles/Vol] 1.3 mmol/L Normal 0.4-1.9 [facility] Comment on above: Performed By: #### L ACT ####[facility] X[address]rmuz[address]fse[address] [place], [place] [address]Dr. Farhat Leal Lactate [Moles/Vol] 1.3 mmol/L Normal 0.4-1.9 [facility] Comment on above: Performed By: #### L ACT ####[facility] V[address]rwumyhkc[address] [place], [place] [address]Dr. Farhat Leal POINT OF CARE GLUCOSEon Glucose [Mass/Vol] 252 mg/dL Critically high 74-106 [facility] Comment on above: Performed By: #### P OCGLUC ####[facility] [address]thsojx[address] [place] [address]Dr. Farhat Leal PROF 14(COMP METB)on 022 Albumin [Mass/Vol] 1.6 g/dL Critically low 3.4-5.0 Th e [facility] Comment on above: Performed By: #### C MP, CMADM, BNP ####[facility] Lbemqdrxvx[address] [place] [address]Dr. Madelynlorri Elvis Albumin/Globulin [Mass ratio] 0.4 {ratio} Normal [facility] Comment on above: Performed By: #### C MP, CMADM, BNP ####[facility] Lgmdqosjau[address] [place], [place] [address]Dr. Farhat Elvis ALP [Catalytic activity/Vol] 98 U/L Normal 46-116 [facility] Comment on above: Performed By: #### C MP, CMADM, BNP ####[facility] Ejqcj[address]pkc[address] [place], [place] [address]Dr. Farhat Leal ALT [Catalytic activity/Vol] 52 U/L Normal 16-63 [facility] Comment on above: Performed By: #### C MP, CMADM, BNP ####[facility] Kinnhdajbz[address] [place], [place] [address]Dr. Farhat Leal Anion gap [Moles/Vol] 9.8 mmol/L Normal [facility] Comment on above: Performed By: #### C MP, CMADM, BNP ####[facility] Fikvullrop[address] [place], [place] [address]Dr. Farhat Leal AST [Catalytic activity/Vol] 122 U/L Critically high 15-37 [facility] Comment on above: Performed By: #### C MP, CMADM, BNP ####[facility] W[address]vclfwf[address] [place], [place] [address]Dr. Farhat Leal Bilirubin [Mass/Vol] 0.7 mg/dL Normal 0.2-1.0 [facility] Comment on above: Performed By: #### C MP, CMADM, BNP ####[facility] Xhfhovapku[address] [place], [place] [address]Dr. Farhat Leal Calcium [Mass/Vol] 8.6 mg/dL Normal 8.5-10.1 [facility] Comment on above: Performed By: #### C MP, CMADM, BNP ####[facility] [address]sojijskb[address] [place] [address]Dr. Farhat Leal Chloride [Moles/Vol] 95 mmol/L Critically low 98-107 [facility] Comment on above: Performed By: #### C MP, CMADM, BNP ####[facility] N[address]urlfwthg65[address] [place] [address]Dr. Farhat Leal CO2 [Moles/Vol] 29.6 mmol/L Normal 21.0-32.0 The [facility] Comment on above: Performed By: #### C MP, CMADM, BNP ####[facility] Ttlcupyedn[address] [place] [address]Dr. Farhat Leal Creatinine [Mass/Vol] 1.49 mg/dL Critically high 0.70-1.30 [facility] Comment on above: Performed By: #### C MP, CMADM, BNP ####[facility] Mpblkslxmo[address] [place], [place] [address]Dr. Farhat Elvis EGFR-AF ETHIOPIAN 55 mL/min/1.73m2 Critically low >=60 [facility] Comment on above: Performed By: #### C MP, CMADM, BNP ####[facility] Nvbzgalqln[address] [place] [address]Dr. Farhat Leal EGFR-NON AF ETHIOPIAN 46 mL/min/1.73m2 Critically low >=60 [facility] Comment on above: Performed By: #### C MP, CMADM, BNP ####[facility] Lltkitkwuc[address] [place] [address]Dr. Farhat Leal Globulin (S) [Mass/Vol] 4.3 g/dL Normal [facility] Comment on above: Performed By: #### C MP, CMADM, BNP ####[facility] Tosyaggnhy[address] [place] [address]Dr. Farhat Leal Glucose [Mass/Vol] 213 mg/dL Critically high 74-106 [facility] Comment on above: Performed By: #### C MP, CMADM, BNP ####[facility] L[address]hfemmqw[address] [place] [address]Dr. Farhat Leal Potassium [Moles/Vol] 4.4 mmol/L Normal 3.5-5.1 [facility] Comment on above: Performed By: #### C FATMATA MARROQUINDM, BNP ####[facility] Vheuxtjwew[address] [place] [address]Dr. Farhat Leal Protein [Mass/Vol] 5.9 g/dL Critically low 6.4-8.2 Th [facility] Comment on above: Performed By: #### C CARA CMADM, BNP ####[facility] [address]mmlqyolht[address] [place], [place] [address]Dr. Farhat Leal Sodium [Moles/Vol] 130 mmol/L Critically low 136-145 Th [facility] Comment on above: Performed By: #### C FATMATA MARROQUINDM, BNP ####[facility] H[address]wjoazmm[address] [place], [place] [address]Dr. Farhat Leal Urea nitrogen [Mass/Vol] 46.0 mg/dL Critically high 7.0-18.0 [facility] Comment on above: Performed By: #### C ANTWAN MARROQIUN, BNP ####[facility] Eltxseiuzt[address] [place], [place] [address]Dr. Farhat Leal Urea nitrogen/Creatinine [Mass ratio] 30.9 mg/mg Normal [facility] Comment on above: Performed By: #### C ANTWAN MARROQUIN, BNP ####[facility] Mofdglywxi[address] [place], [place] [address]Dr. Farhat Leal PROTIMEon 11-23-2021 INR Coag (PPP) [Relative time] 2.55 {INR} Normal [facility] Comment on above: Performed By: #### P TT, PT ####[facility] Qowbvlimez[address] [place], [place] [address]Dr. Farhat Leal INR GUIDELINES SEE BELOW Normal [facility] Comment on above: Result Comment: MALINA RED INR: 2.0 - 3.0 CONDITIONS NOT LISTED BELOW 2.5 - 3.5 FOR PROSTHETIC HEART VALVE REPLACEMENT 2.5 - 3.5 RECURRENT THROMBOSIS Performed By: #### P TT, PT ####[facility] Aktfqkcnfe[address] [place], [place] [address]Dr. Farhat Leal PT Coag (PPP) [Time] 25.9 s Critically high 9.0-11.6 [facility] Comment on above: Performed By: #### P TT, PT ####[facility] [address]fs[address] [place] [phone]. Farhat Leal PTTon 11-23-2021 aPTT Coag (Bld) [Time] 39.9 s Critically high 22.3-36. 2 [facility] Comment on above: Performed By: #### P TT, PT ####[facility] Qvfabyoasq[address] [place], [place] [address]Dr. Farhat Leal XR CHEST 1 Von 11-23-2021 XR CHEST 1 V Normal [facility] XR HEEL RT 2Von 11-23-2021 XR HEEL RT 2V Normal The [facility] XR FOOT RT MIN 3 VIEWSon XR FOOT RT MIN 3 VIEWS Normal [facility] US ARTERY LEG RTon US ARTERY LEG RT Normal The [facility] CBC AUTO DIFFon 09-24-2021 BASO # 0.1 103/ul Normal 0.0-0.1 [facility] Comment on above: Performed By: #### C BC ####[facility] Jregrmrqnb[address] [place], [place] [address]Dr. Farhat Elvis Basophils/100 WBC (Bld) 0.7 % Normal 0.2-2.0 [facility] Comment on above: Performed By: #### C BC ####[facility] Oqbdnmlbst[address] [place], [place] [address]Dr. Farhat Elvis EO # 0.3 103/ul Normal 0.0-0.7 [facility] Comment on above: Performed By: #### C BC ####[facility] Gjddpguads[address] [place], [place] [address]Dr. Farhat Elvis Eosinophils/100 WBC (Bld) 3.9 % Normal 0.9-7.0 [facility] Comment on above: Performed By: #### C BC ####[facility] Ytvrsebjuj[address] [place], [place] [address]Dr. Farhat Elvis Erythrocyte distribution width (RBC) [Ratio] 12.6 % Normal 11.0-15.0 [facility] Comment on above: Performed By: #### C BC ####[facility] Ycocoemrvb[address] [place] [address]DrSkylar Leal Hematocrit (Bld) [Volume fraction] 38.9 % Critically low 42.0-54.0 [facility] Comment on above: Performed By: #### C BC ####[facility] Eieyvxuerf[address] [place], [place] [address]DrSkylar Leal Hemoglobin (Bld) [Mass/Vol] 12.8 g/dL Critically low 14.0-18.0 [facility] Comment on above: Performed By: #### C BC ####[facility] Noobhmdtax[address] [place], [place] [address]DrSkylar Leal IG # 0.10 10e3/ul Critically high 0.00-0.03 [facility] Comment on above: Performed By: #### C BC ####[facility] Ukazrukvlp[address] [place], [place] [address]DrSkylar Leal IG % 1.2 % Critically high 0.0-0.5 [facility] Comment on above: Performed By: #### C BC ####[facility] Xkaosanhpu[address] [place], [place] [address]DrSkylar Leal LYMPH # 2.1 103/ul Normal 1.2-3.8 [facility] Comment on above: Performed By: #### C BC ####[facility] Rziafumula[address] [place], [place] [address]DrSkylar Leal Lymphocytes/100 WBC (Bld) 25.9 % Normal 20.5-60.0 [facility] Comment on above: Performed By: #### C BC ####[facility] Cejfswerhy[address] [place], [place] [address]DrSkylar Leal MANUAL DIFF REQ NO Normal [facility] Comment on above: Performed By: #### C BC ####[facility] Uchbqovaew[address] [place], [place] [address]DrSkylar Leal MCH (RBC) [Entitic mass] 31.1 pg Normal 25.9-34.0 [facility] Comment on above: Performed By: #### C BC ####[facility] F[address]cbgcwyu[address] [place] [address]DrSkylar Leal MCHC (RBC) [Mass/Vol] 32.9 g/dL Normal 29.9-35.2 [facility] Comment on above: Performed By: #### C BC ####[facility] Idrkpstkqt1524 [place] [address]DrSkylar Leal MCV (RBC) [Entitic vol] 94.6 fL Critically high 80.0-94.0 [facility] Comment on above: Performed By: #### C BC ####[facility] Dmehrqzcwz[address] [place], [place] [address]DrSkylar Leal MONO # 1.2 103/ul Critically high 0.3-0.8 [facility] Comment on above: Performed By: #### C BC ####[facility] Sqlpseibgh[address] [place], [place] [address]DrSkylar Leal Monocytes/100 WBC (Bld) 14.1 % Critically high 1.7-12.0 [facility] Comment on above: Performed By: #### C BC ####[facility] Fvepnnvwdd[address] [place], [place] [address]DrSkylar Leal NEUT # 4.4 103/ul Normal 1.4-6.5 [facility] Comment on above: Performed By: #### C BC ####[facility] Drxnjespmu[address] [place], [place] [address]DrSkylar Leal Neutrophils/100 WBC (Bld) 54.2 % Normal 43.0-75.0 [facility] Comment on above: Performed By: #### C BC ####[facility] Dmzvhlocur[address] [place], [place] [address]DrSkylar Leal Platelet mean volume (Bld) [Entitic vol] 9.9 fL Normal 9.5-13.5 [facility] Comment on above: Performed By: #### C BC ####[facility] Lsdauqkzjk[address] [place], [place] [address]Dr. Farhat Leal PLT 224 103/ul Normal 150-450 [facility] Comment on above: Performed By: #### C BC ####[facility] Ssmlcwuweh[address] [place] [address]Dr. Farhat Leal RBC 4.11 106/ul Critically low 4.70-6.10 [facility] Comment on above: Performed By: #### C BC ####[facility] Whkhzqiagf[address] [place] [address]Dr. Farhat Leal WBC 8.2 103/ul Normal 4.0-11.0 [facility] Comment on above: Performed By: #### C BC ####[facility] Lsomdrlphb[address] [place], [place] [address]DrSkylar Leal PROF CHEM 8 (BAS METB)on Anion gap [Moles/Vol] 9.6 mmol/L Normal [facility] Comment on above: Performed By: #### B MP ####[facility] Meyoaprrvi[address] [place], [place] [address]Dr. Farhat Leal Calcium [Mass/Vol] 8.6 mg/dL Normal 8.5-10.1 [facility] Comment on above: Performed By: #### B MP ####[facility] Wpwnvnttpe[address] [place], [place] [address]Dr. Farhat Leal Chloride [Moles/Vol] 94 mmol/L Critically low 98-107 [facility] Comment on above: Performed By: #### B MP ####[facility] Fylefioxtq[address] [place], [place] [address]DrSkylar Leal CO2 [Moles/Vol] 28.1 mmol/L Normal 21.0-32.0 The [facility] Comment on above: Performed By: #### B MP ####[facility] Uowwodqqpj[address] [place], [place] [address]Dr. Farhat Leal Creatinine [Mass/Vol] 1.91 mg/dL Critically high 0.70-1.30 [facility] Comment on above: Performed By: #### B MP ####[facility] Twntkumrkz[address] [place], [place] [address]Dr. Madelynlorri Leal EGFR-AF ETHIOPIAN 42 mL/min/1.73m2 Critically low >=60 [facility] Comment on above: Performed By: #### B MP ####[facility] Daygljxonx[address] [place] [address]Dr. Farhat Leal EGFR-NON AF ETHIOPIAN 34 mL/min/1.73m2 Critically low >=60 [facility] Comment on above: Performed By: #### B MP ####[facility] Afhsvdtsdi[address] [place], [place] [address]Dr. Madelynlorri Elvis Glucose [Mass/Vol] 314 mg/dL Critically high 74-106 [facility] Comment on above: Performed By: #### B MP ####[facility] Cxmvmuqufa[address] [place], [place] [address]Dr. Farhat Leal Potassium [Moles/Vol] 4.7 mmol/L Normal 3.5-5.1 [facility] Comment on above: Performed By: #### B MP ####[facility] Aqzmhafceh[address] [place], [place] [address]Dr. Farhat Leal Sodium [Moles/Vol] 127 mmol/L Critically low 136-145 Th [facility] Comment on above: Performed By: #### B MP ####[facility] Knvjmdzyzy[address] [place], [place] [address]Dr. Madelynlorri Elvis Urea nitrogen [Mass/Vol] 79.0 mg/dL Critically high 7.0-18.0 [facility] Comment on above: Result Comment: repe ated Performed By: #### B MP ####[facility] Qyebsykppa[address] [place], [place] [address]Dr. Farhat Leal Urea nitrogen/Creatinine [Mass ratio] 41.4 mg/mg Normal [facility] Comment on above: Performed By: #### B MP ####[facility] Khcxachilz[address] [place], [place] [address]Dr. Farhat Leal PTT HEPARIN MONITORon 2021 aPTT Coag (Bld) [Time] 42.7 s Normal 39.5-54.2 Th [facility] Comment on above: Performed By: #### P TTHEP ####[facility] [address]gbsojllw[address] [place] [id number]. Farhat Leal aPTT Coag (Bld) [Time] 56.7 s Critically high 39.5-54. 2 [facility] Comment on above: Performed By: #### P TTHEP ####[facility] Bzhdyytvnu[address] [place] [address]Dr. Farhat Elvis CBC AUTO DIFFon 09-23-2021 BASO # 0.1 103/ul Normal 0.0-0.1 [facility] Comment on above: Performed By: #### C BC ####[facility] Hckbqmjhtb[address] [place], [place] [address]Dr. Farhat Leal Basophils/100 WBC (Bld) 0.6 % Normal 0.2-2.0 [facility] Comment on above: Performed By: #### C BC ####[facility] Ensiyiapja[address] [place], [place] [address]Dr. Farhat Leal EO # 0.2 103/ul Normal 0.0-0.7 [facility] Comment on above: Performed By: #### C BC ####[facility] Ggrbusxqeo[address] [place], [place] [address]Dr. Madelynlorri Leal Eosinophils/100 WBC (Bld) 2.6 % Normal 0.9-7.0 [facility] Comment on above: Performed By: #### C BC ####[facility] Aijfwwrovm[address] [place], [place] [address]Dr. Farhat Leal Erythrocyte distribution width (RBC) [Ratio] 12.4 % Normal 11.0-15.0 [facility] Comment on above: Performed By: #### C BC ####[facility] Rbszgtinqi[address] [place], [place] [address]Dr. Farhat Leal Hematocrit (Bld) [Volume fraction] 38.4 % Critically low 42.0-54.0 [facility] Comment on above: Performed By: #### C BC ####[facility] Xmhaxkbaxu[address] [place], [place] [address]Dr. Farhat Leal Hemoglobin (Bld) [Mass/Vol] 12.8 g/dL Critically low 14.0-18.0 [facility] Comment on above: Performed By: #### C BC ####[facility] Y[address]mvweaoa[address] [place] [address]Dr. Farhat Leal IG # 0.06 10e3/ul Critically high 0.00-0.03 [facility] Comment on above: Performed By: #### C BC ####[facility] [address]zkbh[address] [place] [address]Dr. Farhat Leal IG % 0.8 % Critically high 0.0-0.5 [place] Comment on above: Performed By: #### C BC ####[facility] Pogxdbhaht[address] [place] [address]Dr. Farhat Leal LYMPH # 1.5 103/ul Normal 1.2-3.8 [facility] Comment on above: Performed By: #### C BC ####[facility] Agsyiseelr[address] [place] [address]Dr. Farhat Leal Lymphocytes/100 WBC (Bld) 19.7 % Critically low 20.5-60.0 [facility] Comment on above: Performed By: #### C BC ####[facility] Ayidvbomwo[address] [place] [address]Dr. Farhat Leal MANUAL DIFF REQ NO Normal [place] Comment on above: Performed By: #### C BC ####[facility] Gnbfbagnlc1152 [place] [address]DrSkylar Leal MCH (RBC) [Entitic mass] 31.6 pg Normal 25.9-34.0 [facility] Comment on above: Performed By: #### C BC ####[facility] Qmnuisxvch4[address] [place] [address]DrSkylar Leal MCHC (RBC) [Mass/Vol] 33.3 g/dL Normal 29.9-35.2 [facility] Comment on above: Performed By: #### C BC ####[facility] Udgapngnhu[address] [place] [address]DrSkylar Leal MCV (RBC) [Entitic vol] 94.8 fL Critically high 80.0-94.0 [facility] Comment on above: Performed By: #### C BC ####[facility] Rsyrnqwrnc22[address] [place] [address]DrSkylar Joshilorri Elvis MONO # 1.0 103/ul Critically high 0.3-0.8 [facility] Comment on above: Performed By: #### C BC ####[facility] Wbfhxcdhpi17[address] [place] [address]DrSkylar Leal Monocytes/100 WBC (Bld) 13.0 % Critically high 1.7-12.0 [facility] Comment on above: Performed By: #### C BC ####[facility] [address]tpjdmzx[address] [place], [place] [address]DrSkylar Joshilorri Elvis NEUT # 4.9 103/ul Normal 1.4-6.5 [facility] Comment on above: Performed By: #### C BC ####[facility] Eyqbgfrzcp[address] [place], [place] [address]DrSkylar Leal Neutrophils/100 WBC (Bld) 63.3 % Normal 43.0-75.0 [facility] Comment on above: Performed By: #### C BC ####[facility] Yloiuckxfg[address] [place], [place] [address]DrSkylar Leal Platelet mean volume (Bld) [Entitic vol] 10.7 fL Normal 9.5-13.5 [facility] Comment on above: Performed By: #### C BC ####[facility] [address]llve[address] [place] [address]Dr. Farhat Leal PLT 205 103/ul Normal 150-450 [facility] Comment on above: Performed By: #### C BC ####[facility] Tmjdpbhpce[address] [place] [id number] Leal RBC 4.05 106/ul Critically low 4.70-6.10 [facility] Comment on above: Performed By: #### C BC ####[facility] Awsddgmqub9078 [place] [id number] Leal WBC 7.7 103/ul Normal 4.0-11.0 [facility] Comment on above: Performed By: #### C BC ####[facility] Yprrxooraf[address] [place] [address]Dr. Farhat Leal PROF CHEM 8 (BAS METB)on Anion gap [Moles/Vol] 15.5 mmol/L Normal Th [facility] Comment on above: Performed By: #### B MP ####[facility] Oaoyhydnpp[address] [place], [place] [address]Dr. Farhat Leal Calcium [Mass/Vol] 9.1 mg/dL Normal 8.5-10.1 [facility] Comment on above: Performed By: #### B MP ####[facility] Xssdenfaoy[address] [place], [place] [address]Dr. Farhat Leal Chloride [Moles/Vol] 92 mmol/L Critically low 98-107 [facility] Comment on above: Performed By: #### B MP ####[facility] Vfwzyguoxj[address] [place], [place] [address]Dr. Farhat Leal CO2 [Moles/Vol] 28.5 mmol/L Normal 21.0-32.0 [facility] Comment on above: Performed By: #### B MP ####[facility] Zupadnikad[address] [place], [place] [address]DrSkylar Leal Creatinine [Mass/Vol] 1.84 mg/dL Critically high 0.70-1.30 [facility] Comment on above: Performed By: #### B MP ####[facility] Npqwgnxvin[address] [place], [place] [address]DrSkylar Leal EGFR-AF ETHIOPIAN 44 mL/min/1.73m2 Critically low >=60 [facility] Comment on above: Performed By: #### B MP ####[facility] Phpssfymah[address] [place], [place] [address]Dr. Farhat Leal EGFR-NON AF ETHIOPIAN 36 mL/min/1.73m2 Critically low >=60 [facility] Comment on above: Performed By: #### B MP ####[facility] Hobszxnera9[address] [place], [place] [address]DrSkylar Leal Glucose [Mass/Vol] 267 mg/dL Critically high 74-106 T [facility] Comment on above: Performed By: #### B MP ####[facility] Lcheqelsxl[address] [place], [place] [address]Dr. Farhat Leal Potassium [Moles/Vol] 5.0 mmol/L Normal 3.5-5.1 [facility] Comment on above: Performed By: #### B MP ####[facility] Wgtlztvoya[address] [place], [place] [address]Dr. Madelynlorri Elvis Sodium [Moles/Vol] 131 mmol/L Critically low 136-145 Th [facility] Comment on above: Performed By: #### B MP ####[facility] Dhstrlngro[address] [place], [place] [address]Dr. Farhat Elvis Urea nitrogen [Mass/Vol] 76.0 mg/dL Critically high 7.0-18.0 [facility] Comment on above: Performed By: #### B MP ####[facility] Dmbrywmvix9[address] [place], [place] [address]Dr. Madelynlorri Elvis Urea nitrogen/Creatinine [Mass ratio] 41.3 mg/mg Normal [facility] Comment on above: Performed By: #### B MP ####[facility] Shrawgrenc[address] [place], [place] [address]Dr. Farhat Elvis PTT HEPARIN MONITORon 2021 aPTT Coag (Bld) [Time] 57.2 s Critically high 39.5-54. 2 [facility] Comment on above: Performed By: #### P TTHEP ####[facility] Drvrkabcqr236[address] [place], [place] [address]Dr. Madelynlorri Elvis aPTT Coag (Bld) [Time] 74.7 s Critically high 39.5-54. 2 [facility] Comment on above: Result Comment: repe ated Performed By: #### P TTHEP ####[facility] Bjlwtgdgae[address] [place], [place] [address]Dr. Farhat Leal aPTT Coag (Bld) [Time] 45.5 s Normal 39.5-54.2 [facility] Comment on above: Performed By: #### P TTHEP ####[facility] U[address]nrrftbq[address] [place] [address]Dr. Farhat Elvis CBC AUTO DIFFon 09-22-2021 BASO # 0.1 103/ul Normal 0.0-0.1 [facility] Comment on above: Performed By: #### C BC ####[facility] Ggbssmbeho227[address] [place], [place] [address]Dr. Farhat Leal Basophils/100 WBC (Bld) 0.7 % Normal 0.2-2.0 [facility] Comment on above: Performed By: #### C BC ####[facility] Dwhojiulbu19[address] [place], [place] [address]Dr. Farhat Leal EO # 0.3 103/ul Normal 0.0-0.7 [facility] Comment on above: Performed By: #### C BC ####[facility] Yexvrmyifi47[address] [place], [place] [address]Dr. Farhat Leal Eosinophils/100 WBC (Bld) 3.2 % Normal 0.9-7.0 [facility] Comment on above: Performed By: #### C BC ####[facility] Wsnjjkllpa[address] [place], [place] [address]Dr. Farhat Leal Erythrocyte distribution width (RBC) [Ratio] 12.5 % Normal 11.0-15.0 [facility] Comment on above: Performed By: #### C BC ####[facility] Ssfoxjyuou[address] [place], [place] [address]Dr. Farhat Leal Hematocrit (Bld) [Volume fraction] 40.5 % Critically low 42.0-54.0 [facility] Comment on above: Performed By: #### C BC ####[facility] Ojxrfuwafa7[address] [place], [place] [address]Dr. Farhat Leal Hemoglobin (Bld) [Mass/Vol] 13.4 g/dL Critically low 14.0-18.0 [facility] Comment on above: Performed By: #### C BC ####[facility] Vloavvchvq[address] [place], [place] [address]Dr. Farhat Leal IG # 0.11 10e3/ul Critically high 0.00-0.03 [facility] Comment on above: Performed By: #### C BC ####[facility] Yupgtqvzdo[address] [place] [id number]. Farhat Elvis IG % 1.3 % Critically high 0.0-0.5 [place] Comment on above: Performed By: #### C BC ####[facility] Dxfobofpda5[address] [place] [address]Dr. Farhat Leal LYMPH # 1.7 103/ul Normal 1.2-3.8 [facility] Comment on above: Performed By: #### C BC ####[facility] Ldrhzbsuuv40[address] [place] [address]Dr. Farhat Leal Lymphocytes/100 WBC (Bld) 19.6 % Critically low 20.5-60.0 [facility] Comment on above: Performed By: #### C BC ####[facility] Qsqytwcsri[address] [place], [place] [address]Dr. Farhat Leal MANUAL DIFF REQ NO Normal [place] Comment on above: Performed By: #### C BC ####[facility] Cyxcanbjzk9[address] [place] [address]Dr. Farhat Elvis MCH (RBC) [Entitic mass] 31.1 pg Normal 25.9-34.0 [facility] Comment on above: Performed By: #### C BC ####[facility] Ewsxztmugc95[address] [place] [address]Dr. Farhat Leal MCHC (RBC) [Mass/Vol] 33.1 g/dL Normal 29.9-35.2 [facility] Comment on above: Performed By: #### C BC ####[facility] Yxfgctachv[address] [place], [place] [address]DrSkylar Leal MCV (RBC) [Entitic vol] 94.0 fL Normal 80.0-94.0 [facility] Comment on above: Performed By: #### C BC ####[facility] Qntmfhgwki[address] [place], [place] [address]DrSkylar Leal MONO # 1.1 103/ul Critically high 0.3-0.8 [facility] Comment on above: Performed By: #### C BC ####[facility] Kmzmlsxgtp15[address] [place] [address]DrSkylar Farhat Leal Monocytes/100 WBC (Bld) 12.7 % Critically high 1.7-12.0 [facility] Comment on above: Performed By: #### C BC ####[facility] Ztmxmruivl3473 [place] [address]DrSkylar Farhat Leal NEUT # 5.3 103/ul Normal 1.4-6.5 [facility] Comment on above: Performed By: #### C BC ####[facility] Yiooxuuqfj8522 [place] [address]DrSkylar Farhat Leal Neutrophils/100 WBC (Bld) 62.5 % Normal 43.0-75.0 [facility] Comment on above: Performed By: #### C BC ####[facility] Ohbgzfhlzb4655 [place] [address]DrSkylar Farhat Leal Platelet mean volume (Bld) [Entitic vol] 10.1 fL Normal 9.5-13.5 [facility] Comment on above: Performed By: #### C BC ####[facility] Talwumooiw33[address] [place] [address]Dr. Farhat Leal PLT 220 103/ul Normal 150-450 [facility] Comment on above: Performed By: #### C BC ####[facility] Ndthdfwgfr7713 [place] [address]DrSkylar Farhat Leal RBC 4.31 106/ul Critically low 4.70-6.10 [facility] Comment on above: Performed By: #### C BC ####[facility] Dntqrejrmr5871 [place] [phone] Farhat Elvis WBC 8.4 103/ul Normal 4.0-11.0 [facility] Comment on above: Performed By: #### C BC ####[facility] Gsdvirobdw0113 [place] [address]DrSkylar Leal PROF CHEM 8 (BAS METB)on Anion gap [Moles/Vol] 15.5 mmol/L Normal [facility] Comment on above: Performed By: #### B MP ####[facility] Vkhlgjcqrz[address] [place], [place] [address]Dr. Farhat Leal Calcium [Mass/Vol] 8.9 mg/dL Normal 8.5-10.1 [facility] Comment on above: Performed By: #### B MP ####[facility] Pndwihewch[address] [place], [place] [address]Dr. Farhat Leal Chloride [Moles/Vol] 92 mmol/L Critically low 98-107 [facility] Comment on above: Performed By: #### B MP ####[facility] Juzxqomkck324[address] [place], [place] [address]Dr. Farhat Leal CO2 [Moles/Vol] 25.7 mmol/L Normal 21.0-32.0 [facility] Comment on above: Performed By: #### B MP ####[facility] Xvjtqbjaiy8[address] [place], [place] [address]Dr. Farhat Leal Creatinine [Mass/Vol] 1.85 mg/dL Critically high 0.70-1.30 [facility] Comment on above: Performed By: #### B MP ####[facility] Hdntdbgegr[address] [place], [place] [address]Dr. Farhat Leal EGFR-AF ETHIOPIAN 43 mL/min/1.73m2 Critically low >=60 [facility] Comment on above: Performed By: #### B MP ####[facility] Bwqnlwclsm[address] [place], [place] [address]Dr. Farhat Leal EGFR-NON AF ETHIOPIAN 36 mL/min/1.73m2 Critically low >=60 [facility] Comment on above: Performed By: #### B MP ####[facility] Xrxmziduwx6524[address] [place], [place] [address]Dr. Farhat Leal Glucose [Mass/Vol] 410 mg/dL Critically high 74-106 [facility] Comment on above: Performed By: #### B MP ####[facility] Ywecnlhyab7614[address] [place], [place] [address]Dr. Farhat Leal Potassium [Moles/Vol] 5.2 mmol/L Critically high 3.5-5.1 [facility] Comment on above: Performed By: #### B MP ####[facility] Hvogsjscxe698[address] [place], [place] [address]Dr. Farhat Leal Sodium [Moles/Vol] 128 mmol/L Critically low 136-145 Th [facility] Comment on above: Performed By: #### B MP ####[facility] Jfujakrrtw198[address] [place], [place] [address]Dr. Farhat Leal Urea nitrogen [Mass/Vol] 75.0 mg/dL Critically high 7.0-18.0 [facility] Comment on above: Performed By: #### B MP ####[facility] Vsthqntkxi4512[address] [place], [place] [address]Dr. Farhat Leal Urea nitrogen/Creatinine [Mass ratio] 40.5 mg/mg Normal [facility] Comment on above: Performed By: #### B MP ####[facility] Xolvmdldex254[address] [place], [place] [address]Dr. Farhat Leal PTT HEPARIN MONITORon 2021 aPTT Coag (Bld) [Time] 51.2 s Normal 39.5-54.2 Th [facility] Comment on above: Performed By: #### P TTHEP ####[facility] Zqbqsrhqpe000[address] [place], [place] [address]Dr. Farhat Lael aPTT Coag (Bld) [Time] 55.6 s Critically high 39.5-54. 2 [facility] Comment on above: Performed By: #### P TTHEP ####[facility] Cbewuofkec[address] [place], [place] [address]Dr. Farhat Leal aPTT Coag (Bld) [Time] 46.1 s Normal 39.5-54.2 [facility] Comment on above: Performed By: #### P TTHEP ####[facility] Nacsixnems[address] [place], [place] [address]Dr. Farhat Leal aPTT Coag (Bld) [Time] 53.8 s Normal 39.5-54.2 Th [facility] Comment on above: Performed By: #### P TTHEP ####[facility] Lutnrbhimz[address] [place] [address]Dr. Farhat Leal CBC AUTO DIFFon 09-21-2021 BASO # 0.1 103/ul Normal 0.0-0.1 [facility] Comment on above: Performed By: #### C BC ####[facility] Fvutqwnljh697[address] [place], [place] [address]Dr. Farhat Leal Basophils/100 WBC (Bld) 0.8 % Normal 0.2-2.0 [facility] Comment on above: Performed By: #### C BC ####[facility] Qelpctshsi0624[address] [place], [place] [address]Dr. Farhat Leal EO # 0.4 103/ul Normal 0.0-0.7 [facility] Comment on above: Performed By: #### C BC ####[facility] Smilxktrba[address] [place], [place] [address]Dr. Farhat Leal Eosinophils/100 WBC (Bld) 4.3 % Normal 0.9-7.0 [facility] Comment on above: Performed By: #### C BC ####[facility] Uknopxbzci167[address] [place], [place] [address]Dr. Farhat Leal Erythrocyte distribution width (RBC) [Ratio] 12.5 % Normal 11.0-15.0 [facility] Comment on above: Performed By: #### C BC ####[facility] Bzrrnabxkd634[address] [place], [place] [address]Dr. Farhat Leal Hematocrit (Bld) [Volume fraction] 40.8 % Critically low 42.0-54.0 [facility] Comment on above: Performed By: #### C BC ####[facility] Rdtmbunsfk584[address] [place], [place] [address]Dr. Farhat Leal Hemoglobin (Bld) [Mass/Vol] 13.5 g/dL Critically low 14.0-18.0 [facility] Comment on above: Performed By: #### C BC ####[facility] Otbcbfpoeo186[address] [place], [place] [address]Dr. Farhat Leal IG # 0.10 10e3/ul Critically high 0.00-0.03 [facility] Comment on above: Performed By: #### C BC ####[facility] Ggzvzxertd8574 [place] [address]DrSkylar Farhat Elvis IG % 1.2 % Critically high 0.0-0.5 [place] Comment on above: Performed By: #### C BC ####[facility] Gprcpbkmoi1156 [place] [address]DrSkylar Joshilorri Elvis LYMPH # 1.3 103/ul Normal 1.2-3.8 [facility] Comment on above: Performed By: #### C BC ####[facility] Tggqnsmxah[address] [place], [place] [address]DrSkylar Leal Lymphocytes/100 WBC (Bld) 15.4 % Critically low 20.5-60.0 [facility] Comment on above: Performed By: #### C BC ####[facility] Tmlrimmacx[address] [place], [place] [address]DrSkylar Leal MANUAL DIFF REQ NO Normal [place] Comment on above: Performed By: #### C BC ####[facility] Dfqjdafybp[address] [place], [place] [address]DrSkylar Joshilorri Elvis MCH (RBC) [Entitic mass] 31.0 pg Normal 25.9-34.0 [facility] Comment on above: Performed By: #### C BC ####[facility] Yvsqzchczy0480 [place] [address]DrSkylar Joshilorri Elvis MCHC (RBC) [Mass/Vol] 33.1 g/dL Normal 29.9-35.2 [facility] Comment on above: Performed By: #### C BC ####[facility] Iijwiobiec[address] [place], [place] [address]DrSkylar Leal MCV (RBC) [Entitic vol] 93.8 fL Normal 80.0-94.0 [facility] Comment on above: Performed By: #### C BC ####[facility] Gnjranhdum57[address] [place], [place] [address]DrSkylar Leal MONO # 1.2 103/ul Critically high 0.3-0.8 [facility] Comment on above: Performed By: #### C BC ####[facility] Hrvgkjolno8636 [place] [address]Dr. Farhat Leal Monocytes/100 WBC (Bld) 13.6 % Critically high 1.7-12.0 [facility] Comment on above: Performed By: #### C BC ####[facility] Fvmnrzqnxj650[address] [place], [place] [address]Dr. Farhat Leal NEUT # 5.5 103/ul Normal 1.4-6.5 [facility] Comment on above: Performed By: #### C BC ####[facility] Djzwfexppo3535 [place] [address]Dr. Farhat Leal Neutrophils/100 WBC (Bld) 64.7 % Normal 43.0-75.0 [facility] Comment on above: Performed By: #### C BC ####[facility] Yjalubetbt[address] [place], [place] [address]Dr. Farhat Leal Platelet mean volume (Bld) [Entitic vol] 9.8 fL Normal 9.5-13.5 [facility] Comment on above: Performed By: #### C BC ####[facility] Dudxqsacbv56[address] [place], [place] [address]Dr. Farhat Leal PLT 206 103/ul Normal 150-450 [facility] Comment on above: Performed By: #### C BC ####[facility] Tugfdjgmrl[address] [place], [place] [address]Dr. Farhat Leal RBC 4.35 106/ul Critically low 4.70-6.10 [facility] Comment on above: Performed By: #### C BC ####[facility] N[address]ldokqzl[address] [place], [place] [id number]. Farhat Leal WBC 8.4 103/ul Normal 4.0-11.0 [facility] Comment on above: Performed By: #### C BC ####[facility] Pavubddlho863[address] [place], [place] [address]DrSkylar Farhat Elvis PROF CHEM 8 (BAS METB)on Anion gap [Moles/Vol] 12.3 mmol/L Normal [facility] Comment on above: Performed By: #### B MP ####[facility] Qlbniwicdy[address] [place], [place] [address]Dr. Farhat Leal Calcium [Mass/Vol] 8.6 mg/dL Normal 8.5-10.1 [facility] Comment on above: Performed By: #### B MP ####[facility] Flhhqsxzid978[address] [place], [place] [address]Dr. Farhat Leal Chloride [Moles/Vol] 94 mmol/L Critically low 98-107 [facility] Comment on above: Performed By: #### B MP ####[facility] Pkdltdlzuk8[address] [place], [place] [address]Dr. Farhat Leal CO2 [Moles/Vol] 30.8 mmol/L Normal 21.0-32.0 [facility] Comment on above: Performed By: #### B MP ####[facility] Lfwabidxbt9[address] [place], [place] [address]Dr. Farhat Leal Creatinine [Mass/Vol] 1.99 mg/dL Critically high 0.70-1.30 [facility] Comment on above: Performed By: #### B MP ####[facility] Fxljplfqjm199[address] [place], [place] [address]Dr. Farhat Leal EGFR-AF ETHIOPIAN 40 mL/min/1.73m2 Critically low >=60 [facility] Comment on above: Performed By: #### B MP ####[facility] Txrzlajgud[address] [place], [place] [address]Dr. Farhat Leal EGFR-NON AF ETHIOPIAN 33 mL/min/1.73m2 Critically low >=60 [facility] Comment on above: Performed By: #### B MP ####[facility] Tyvyxnqmmm023[address] [place], [place] [address]Dr. Farhat Leal Glucose [Mass/Vol] 264 mg/dL Critically high 74-106 [facility] Comment on above: Performed By: #### B MP ####[facility] Mwyhatoktv[address] [place], [place] [address]Dr. Farhat Leal Potassium [Moles/Vol] 5.1 mmol/L Normal 3.5-5.1 [facility] Comment on above: Performed By: #### B MP ####[facility] Wzgbtzsqma134[address] [place], [place] [address]Dr. Farhat Leal Sodium [Moles/Vol] 132 mmol/L Critically low 136-145 Th [facility] Comment on above: Performed By: #### B MP ####[facility] Gqznruffjt35340[address] [place], [place] [address]Dr. Farhat Leal Urea nitrogen [Mass/Vol] 72.0 mg/dL Critically high 7.0-18.0 [facility] Comment on above: Performed By: #### B MP ####[facility] Cbhtymsoyq138[address] [place], [place] [address]Dr. Farhat Leal Urea nitrogen/Creatinine [Mass ratio] 36.2 mg/mg Normal [facility] Comment on above: Performed By: #### B MP ####[facility] Jgnmiyfihd[address] [place], [place] [address]Dr. Farhat Leal PTT HEPARIN MONITORon 2021 aPTT Coag (Bld) [Time] 45.3 s Normal 39.5-54.2 [facility] Comment on above: Performed By: #### P TTHEP ####[facility] Lhgusnvbir188[address] [place], [place] [address]Dr. Farhat Leal aPTT Coag (Bld) [Time] 68.0 s Critically high 39.5-54. 2 [facility] Comment on above: Performed By: #### P TTHEP ####[facility] Cubmbbgqqb284[address] [place], [place] [address]Dr. Farhat Leal aPTT Coag (Bld) [Time] 69.4 s Critically high 39.5-54. 2 [facility] Comment on above: Performed By: #### P TTHEP ####[facility] Fbbvqrkgmt057[address] [place], [place] [address]Dr. Farhat Leal aPTT Coag (Bld) [Time] 53.5 s Normal 39.5-54.2 Th [facility] Comment on above: Performed By: #### P TTHEP ####[facility] Zzmhxdpcfd3103 [place] [address]Dr. Farhat Leal aPTT Coag (Bld) [Time] 126.9 s Critically high 39.5-54. 2 [facility] Comment on above: Performed By: #### P TTHEP ####[facility] Vizbhuprbc203[address] [place], [place] [address]DrSkylar Leal CBC AUTO DIFFon 09-20-2021 BASO # 0.1 103/ul Normal 0.0-0.1 [facility] Comment on above: Performed By: #### C BC ####[facility] Rcgdtaqhjk[address] [place], [place] [address]DrSkylar Leal Basophils/100 WBC (Bld) 0.7 % Normal 0.2-2.0 [facility] Comment on above: Performed By: #### C BC ####[facility] Wlhoaixoqd[address] [place], [place] [address]DrSkylar Leal EO # 0.2 103/ul Normal 0.0-0.7 [facility] Comment on above: Performed By: #### C BC ####[facility] Yizlmriaym[address] [place], [place] [address]DrSkylar Leal Eosinophils/100 WBC (Bld) 3.2 % Normal 0.9-7.0 [facility] Comment on above: Performed By: #### C BC ####[facility] Xwmokblpyp[address] [place], [place] [address]DrSkylar Lael Erythrocyte distribution width (RBC) [Ratio] 12.4 % Normal 11.0-15.0 [facility] Comment on above: Performed By: #### C BC ####[facility] Yesjpjooxd378[address] [place], [place] [address]DrSkylar Leal Hematocrit (Bld) [Volume fraction] 40.1 % Critically low 42.0-54.0 [facility] Comment on above: Performed By: #### C BC ####[facility] Skkzvssxgh[address] [place], [place] [address]Dr. Farhat Leal Hemoglobin (Bld) [Mass/Vol] 13.4 g/dL Critically low 14.0-18.0 [facility] Comment on above: Performed By: #### C BC ####[facility] Kcpxvrxwfu9[address] [place] [address]Dr. Madelynlorri Leal IG # 0.08 10e3/ul Critically high 0.00-0.03 [facility] Comment on above: Performed By: #### C BC ####[facility] Kguakppbtb14[address] [place] [address]Dr. Madelynlorri Leal IG % 1.1 % Critically high 0.0-0.5 [facility] Comment on above: Performed By: #### C BC ####[facility] Qfbvmrbqmj[address] [place], [place] [address]Dr. Farhat Leal LYMPH # 1.3 103/ul Normal 1.2-3.8 [facility] Comment on above: Performed By: #### C BC ####[facility] Pvcmpdihun[address] [place], [place] [address]Dr. Farhat Leal Lymphocytes/100 WBC (Bld) 17.3 % Critically low 20.5-60.0 [facility] Comment on above: Performed By: #### C BC ####[facility] Omkjqnudbt25[address] [place] [address]DrSkylar Madelynlorri Leal MANUAL DIFF REQ NO Normal [facility] Comment on above: Performed By: #### C BC ####[facility] Fihefmrdyg[address] [place], [place] [address]DrSkylar Farhat Elvis MCH (RBC) [Entitic mass] 31.2 pg Normal 25.9-34.0 [facility] Comment on above: Performed By: #### C BC ####[facility] Yozzfchnwq[address] [place], [place] [address]DrSkylar Farhat Elvis MCHC (RBC) [Mass/Vol] 33.4 g/dL Normal 29.9-35.2 [facility] Comment on above: Performed By: #### C BC ####[facility] Wgnapcenix[address] [place], [place] [address]Dr. Farhat Elvis MCV (RBC) [Entitic vol] 93.3 fL Normal 80.0-94.0 [facility] Comment on above: Performed By: #### C BC ####[facility] Xygkqpnrbp0[address] [place] [address]Dr. Farhat Leal MONO # 0.9 103/ul Critically high 0.3-0.8 [facility] Comment on above: Performed By: #### C BC ####[facility] Lxtjdoynth[address] [place] [address]DrSkylar Farhat Elvis Monocytes/100 WBC (Bld) 12.4 % Critically high 1.7-12.0 [facility] Comment on above: Performed By: #### C BC ####[facility] Uwutppwhnc[address] [place], [place] [address]Dr. Farhat Leal NEUT # 4.7 103/ul Normal 1.4-6.5 [facility] Comment on above: Performed By: #### C BC ####[facility] Gtkceyymqp[address] [place], [place] [address]Dr. Farhat Elvis Neutrophils/100 WBC (Bld) 65.3 % Normal 43.0-75.0 [facility] Comment on above: Performed By: #### C BC ####[facility] Ztzwtartzh[address] [place], [place] [address]Dr. Farhat Elvis Platelet mean volume (Bld) [Entitic vol] 9.9 fL Normal 9.5-13.5 [facility] Comment on above: Performed By: #### C BC ####[facility] [address]qdndmll[address] [place], [place] [address]Dr. Madelynlorri Elvis PLT 180 103/ul Normal 150-450 [facility] Comment on above: Performed By: #### C BC ####[facility] Nlvssvafqw[address] [place], [place] [address]Dr. Madelynlorri Elvis RBC 4.30 106/ul Critically low 4.70-6.10 [facility] Comment on above: Performed By: #### C BC ####[facility] Bajopdetcn[address] [place], [place] [address]DrSkylar Leal WBC 7.2 103/ul Normal 4.0-11.0 [facility] Comment on above: Performed By: #### C BC ####[facility] Wejgeawkbe[address] [place], [place] [address]Dr. Farhat Leal PTT HEPARIN MONITORon 2021 aPTT Coag (Bld) [Time] 26.7 s Critically low 39.5-54.2 [facility] Comment on above: Performed By: #### P TTHEP ####[facility] Lakmcskkni[address] [place], [place] [address]Dr. Farhat Elvis aPTT Coag (Bld) [Time] 121.0 s Critically high 39.5-54. 2 [facility] Comment on above: Performed By: #### P TTHEP ####[facility] Htjqmjhjlq[address] [place], [place] [address]Dr. Farhat Elvis aPTT Coag (Bld) [Time] 27.6 s Critically low 39.5-54.2 [facility] Comment on above: Performed By: #### P TTHEP ####[facility] Wxpedmzbkr84[address] [place], [place] [address]Dr. Farhat Elvis aPTT Coag (Bld) [Time] 139.0 s Critically high 39.5-54. 2 [facility] Comment on above: Performed By: #### P TTHEP ####[facility] Gfwvyzynkc[address] [place], [place] [address]Dr. Farhat Elvis CBC AUTO DIFFon 09-19-2021 BASO # 0.0 103/ul Normal 0.0-0.1 [facility] Comment on above: Performed By: #### C BC ####[facility] Hwveoteunk[address] [place], [place] [address]Dr. Farhat Elvis Basophils/100 WBC (Bld) 0.5 % Normal 0.2-2.0 [facility] Comment on above: Performed By: #### C BC ####[facility] Ilrpxngnci[address] [place], [place] [address]DrSkylar Leal EO # 0.2 103/ul Normal 0.0-0.7 [facility] Comment on above: Performed By: #### C BC ####[facility] [address] [place] [address]Dr. Farhat Leal Eosinophils/100 WBC (Bld) 2.6 % Normal 0.9-7.0 [facility] Comment on above: Performed By: #### C BC ####[facility] E[address]gfwxlnb[address] [place] [address]Dr. Farhat Leal Erythrocyte distribution width (RBC) [Ratio] 12.5 % Normal 11.0-15.0 [facility] Comment on above: Performed By: #### C BC ####[facility] Skefmdzfrv[address] [place] [address]Dr. Farhat Leal Hematocrit (Bld) [Volume fraction] 39.2 % Critically low 42.0-54.0 [facility] Comment on above: Performed By: #### C BC ####[facility] Qotmxxginl96[address] [place], [place] [address]Dr. Farhat Leal Hemoglobin (Bld) [Mass/Vol] 13.3 g/dL Critically low 14.0-18.0 [facility] Comment on above: Performed By: #### C BC ####[facility] Nzysqawbuo[address] [place], [place] [address]Dr. Farhat Leal IG # 0.08 10e3/ul Critically high 0.00-0.03 [facility] Comment on above: Performed By: #### C BC ####[facility] Xtwmudaame[address] [place], [place] [address]Dr. Farhat Leal IG % 0.9 % Critically high 0.0-0.5 [facility] Comment on above: Performed By: #### C BC ####[facility] Pdxixxxvmu[address] [place], [place] [address]Dr. Madelynlorri Elvis LYMPH # 1.5 103/ul Normal 1.2-3.8 [facility] Comment on above: Performed By: #### C BC ####[facility] Rucahnouug[address] [place], [place] [address]Dr. Farhat Leal Lymphocytes/100 WBC (Bld) 17.2 % Critically low 20.5-60.0 [facility] Comment on above: Performed By: #### C BC ####[facility] [address]itv[address] [place] [address]DrSkylar Leal MANUAL DIFF REQ NO Normal [facility] Comment on above: Performed By: #### C BC ####[facility] Kixvjdansj4[address] [place] [address]Dr. Farhat Leal MCH (RBC) [Entitic mass] 31.7 pg Normal 25.9-34.0 [facility] Comment on above: Performed By: #### C BC ####[facility] Zulswsxhby[address] [place], [place] [address]Dr. Farhat Leal MCHC (RBC) [Mass/Vol] 33.9 g/dL Normal 29.9-35.2 [facility] Comment on above: Performed By: #### C BC ####[facility] Bbgriyaztf[address] [place], [place] [address]DrSkylar Leal MCV (RBC) [Entitic vol] 93.3 fL Normal 80.0-94.0 [facility] Comment on above: Performed By: #### C BC ####[facility] Jmwbuauony[address] [place], [place] [address]DrSkylar Leal MONO # 1.2 103/ul Critically high 0.3-0.8 [facility] Comment on above: Performed By: #### C BC ####[facility] Shjxmjdgwf[address] [place], [place] [address]DrSkylar Leal Monocytes/100 WBC (Bld) 13.7 % Critically high 1.7-12.0 [facility] Comment on above: Performed By: #### C BC ####[facility] Qpahsdymqc[address] [place], [place] [address]DrSkylar Leal NEUT # 5.5 103/ul Normal 1.4-6.5 [facility] Comment on above: Performed By: #### C BC ####[facility] Xtanwbpnqx143[address] [place], [place] [address]DrSkylar Leal Neutrophils/100 WBC (Bld) 65.1 % Normal 43.0-75.0 [facility] Comment on above: Performed By: #### C BC ####[facility] [address]om[address]xp[address] [place] [address]DrSkylar Farhat Leal Platelet mean volume (Bld) [Entitic vol] 9.6 fL Normal 9.5-13.5 [facility] Comment on above: Performed By: #### C BC ####[facility] Ylvrnrwhmr[address] [place] [address]DrSkylar Farhat Leal PLT 163 103/ul Normal 150-450 [facility] Comment on above: Performed By: #### C BC ####[facility] Ebpauxlmbv[address] [place] [address]DrSkylar Farhat Leal RBC 4.20 106/ul Critically low 4.70-6.10 [facility] Comment on above: Performed By: #### C BC ####[facility] Colgoomnzh5[address] [place], [place] [address]DrSkylar Farhat Elvis WBC 8.4 103/ul Normal 4.0-11.0 [facility] Comment on above: Performed By: #### C BC ####[facility] Qfvhzblxzj[address] [place], [place] [address]DrSkylar Farhat Leal POINT OF CARE GLUCOSEon Glucose [Mass/Vol] 300 mg/dL Critically high 74-106 T [facility] Comment on above: Performed By: #### P OCGLUC ####[facility] Rsoybjbwfa[address] [place], [place] [address]DrSkylar Farhat Elvis POTASSIUMon 09-19-2021 Potassium [Moles/Vol] 4.9 mmol/L Normal 3.5-5.1 [facility] Comment on above: Performed By: #### K ####[facility] Khes[address]uvbu[address] [place], [place] [address]DrSkylar Farhat Elvis PTT HEPARIN MONITORon 2021 aPTT Coag (Bld) [Time] 23.4 s Critically low 39.5-54.2 [facility] Comment on above: Result Comment: repe ated Performed By: #### P TTHEP ####[facility] Y[address]ivgnqua[address] [place], [place] [address]Dr. Farhat Elvis aPTT Coag (Bld) [Time] 101.2 s Critically high 39.5-54. 2 [facility] Comment on above: Performed By: #### P TTHEP ####[facility] Ntusaokxrm[address] [place], [place] [address]Dr. Farhat Leal aPTT Coag (Bld) [Time] 81.0 s Critically high 39.5-54. 2 [facility] Comment on above: Result Comment: Test Repeated. Critical Value Verified Performed By: #### P TTHEP ####[facility] Jcezgozrma[address] [place], [place] [address]DrSkylar Leal CBC AUTO DIFFon 09-18-2021 BASO # 0.0 103/ul Normal 0.0-0.1 [facility] Comment on above: Performed By: #### C BC ####[facility] Awxkoyodvg[address] [place], [place] [address]DrSkylar Leal Basophils/100 WBC (Bld) 0.4 % Normal 0.2-2.0 [facility] Comment on above: Performed By: #### C BC ####[facility] [address]qxupmwtuk[address] [place], [place] [address]DrSkylar Leal EO # 0.1 103/ul Normal 0.0-0.7 [facility] Comment on above: Performed By: #### C BC ####[facility] Zhhkdppcsg[address] [place], [place] [address]DrSkylar Leal Eosinophils/100 WBC (Bld) 0.8 % Critically low 0.9-7.0 [facility] Comment on above: Performed By: #### C BC ####[facility] Liqrnwdcms[address] [place], [place] [address]DrSkylar Leal Erythrocyte distribution width (RBC) [Ratio] 12.4 % Normal 11.0-15.0 [facility] Comment on above: Performed By: #### C BC ####[facility] Xjtcyoaizk[address] [place], [place] [address]DrSkylar Leal Hematocrit (Bld) [Volume fraction] 41.7 % Critically low 42.0-54.0 [facility] Comment on above: Performed By: #### C BC ####[facility] [address] [place] [address]DrSkylar Leal Hemoglobin (Bld) [Mass/Vol] 14.1 g/dL Normal 14.0-18.0 [facility] Comment on above: Performed By: #### C BC ####[facility] [address]zvm[address] [place] [address]Dr. Farhat Leal IG # 0.06 10e3/ul Critically high 0.00-0.03 The [facility] Comment on above: Performed By: #### C BC ####[facility] [address]mpa[address] [place] [address]DrSkylar Leal IG % 0.6 % Critically high 0.0-0.5 [facility] Comment on above: Performed By: #### C BC ####[facility] O[address]backluw[address] [place] [address]DrSkylar Leal LYMPH # 0.6 103/ul Critically low 1.2-3.[address] [facility] Comment on above: Performed By: #### C BC ####[facility] Xvarniaxsr[address] [place] [address]DrSkylar Leal Lymphocytes/100 WBC (Bld) 6.5 % Critically low 20.5-60.0 [facility] Comment on above: Performed By: #### C BC ####[facility] [address]uzw[address]wycd[address] [place] [address]DrSkylar Leal MANUAL DIFF REQ NO Normal [facility] Comment on above: Performed By: #### C BC ####[facility] F[address]wcqyydjq[address]35 [place] [address]DrSkylar Leal MCH (RBC) [Entitic mass] 31.6 pg Normal 25.9-34.0 [facility] Comment on above: Performed By: #### C BC ####[facility] [address]jzekmpq[address] [place], [place] [address]DrSkylar Leal MCHC (RBC) [Mass/Vol] 33.8 g/dL Normal 29.9-35.2 [facility] Comment on above: Performed By: #### C BC ####[facility] [address]cr[address] [place] [id number]. Farhat Elvis MCV (RBC) [Entitic vol] 93.5 fL Normal 80.0-94.0 [facility] Comment on above: Performed By: #### C BC ####[facility] Kt[address]bdgpik[address] [place] [id number]. Farhat Elvis MONO # 1.0 103/ul Critically high 0.3-0.8 [facility] Comment on above: Performed By: #### C BC ####[facility] Smtqpqqbug[address] [place] [address]Dr. Farhat Leal Monocytes/100 WBC (Bld) 10.4 % Normal 1.7-12.0 [facility] Comment on above: Performed By: #### C BC ####[facility] Mosjxzblvs[address] [place], [place] [address]Dr. Farhat Leal NEUT # 7.8 103/ul Critically high 1.4-6.5 [facility] Comment on above: Performed By: #### C BC ####[facility] Dieenvajuc[address] [place], [place] [address]Dr. Farhat Leal Neutrophils/100 WBC (Bld) 81.3 % Critically high 43.0-75.0 [facility] Comment on above: Performed By: #### C BC ####[facility] Qcsqnxpoxp7[address] [place] [address]Dr. Madelynlorri Leal Platelet mean volume (Bld) [Entitic vol] 9.9 fL Normal 9.5-13.5 [facility] Comment on above: Performed By: #### C BC ####[facility] [address]fx[address]zqeum[address] [place] [id number]. Farhat Leal PLT 169 103/ul Normal 150-450 [facility] Comment on above: Performed By: #### C BC ####[facility] Vmcigeqrir49[address] [place] [id number]. Farhat Leal RBC 4.46 106/ul Critically low 4.70-6.10 [facility] Comment on above: Performed By: #### C BC ####[facility] [address]kski[address] [place] [id number]. Farhat Leal WBC 9.6 103/ul Normal 4.0-11.0 [facility] Comment on above: Performed By: #### C BC ####[facility] Frrejtefew[address] [place] [id number]. Farhat Leal BASO # 0.0 103/ul Normal 0.0-0.1 [facility] Comment on above: Performed By: #### C BC ####[facility] Pqybycluwr[address] [place], [place] [address]Dr. Farhat Leal Basophils/100 WBC (Bld) 0.4 % Normal 0.2-2.0 [facility] Comment on above: Performed By: #### C BC ####[facility] Tkuehctlqr[address] [place], [place] [address]Dr. Farhat Leal EO # 0.1 103/ul Normal 0.0-0.7 [facility] Comment on above: Performed By: #### C BC ####[facility] Lbyximjbno[address] [place], [place] [address]Dr. Farhat Leal Eosinophils/100 WBC (Bld) 1.1 % Normal 0.9-7.0 [facility] Comment on above: Performed By: #### C BC ####[facility] Glkilbwutp[address] [place], [place] [address]Dr. Farhat Leal Erythrocyte distribution width (RBC) [Ratio] 12.6 % Normal 11.0-15.0 [facility] Comment on above: Performed By: #### C BC ####[facility] Zvhbdowgwh[address] [place], [place] [address]Dr. Farhat Leal Hematocrit (Bld) [Volume fraction] 40.8 % Critically low 42.0-54.0 [facility] Comment on above: Performed By: #### C BC ####[facility] V[address]jmvpbbm[address] [place] [address]Dr. Farhat Leal Hemoglobin (Bld) [Mass/Vol] 13.6 g/dL Critically low 14.0-18.0 [facility] Comment on above: Performed By: #### C BC ####[facility] [address]qbtxdbyg[address] [place] [address]Dr. Farhat Leal IG # 0.08 10e3/ul Critically high 0.00-0.03 The [facility] Comment on above: Performed By: #### C BC ####[facility] [address]ymfjcpp[address] [place] [address]Dr. Farhat Leal IG % 0.9 % Critically high 0.0-0.5 [facility] Comment on above: Performed By: #### C BC ####[facility] Apbmpsifxl4[address] [place] [address]Dr. Farhat Leal LYMPH # 0.8 103/ul Critically low 1.2-3.[address] [facility] Comment on above: Performed By: #### C BC ####[facility] S[address]cvoykozp[address] [place] [address]Dr. Farhat Leal Lymphocytes/100 WBC (Bld) 8.7 % Critically low 20.5-60.0 [facility] Comment on above: Performed By: #### C BC ####[facility] K[address]ulvcu[address] [place] [address]Dr. Farhat Leal MANUAL DIFF REQ NO Normal [facility] Comment on above: Performed By: #### C BC ####[facility] K[address]yrwru27[address] [place] [address]Dr. Farhat Leal MCH (RBC) [Entitic mass] 31.6 pg Normal 25.9-34.0 [facility] Comment on above: Performed By: #### C BC ####[facility] Zdqrxqbyly[address] [place], [place] [address]Dr. Farhat Leal MCHC (RBC) [Mass/Vol] 33.3 g/dL Normal 29.9-35.2 [facility] Comment on above: Performed By: #### C BC ####[facility] Ugjesijbgj7[address] [place] [phone]. Farhat Leal MCV (RBC) [Entitic vol] 94.9 fL Critically high 80.0-94.0 [facility] Comment on above: Performed By: #### C BC ####[facility] Smpyulefkc8735 [place] [phone]. Farhat Leal MONO # 1.0 103/ul Critically high 0.3-0.8 [facility] Comment on above: Performed By: #### C BC ####[facility] Vyupvvqlib[address] [place], [place] [address]Dr. Farhat Leal Monocytes/100 WBC (Bld) 11.3 % Normal 1.7-12.0 [facility] Comment on above: Performed By: #### C BC ####[facility] Ntckupnlpn[address] [place], [place] [address]Dr. Farhat Leal NEUT # 6.9 103/ul Critically high 1.4-6.5 [facility] Comment on above: Performed By: #### C BC ####[facility] Ptrcvimipi[address] [place], [place] [address]Dr. Farhat Leal Neutrophils/100 WBC (Bld) 77.6 % Critically high 43.0-75.0 [facility] Comment on above: Performed By: #### C BC ####[facility] [address]tqprzabeo[address] [place], [place] [id number]. Farhat Leal Platelet mean volume (Bld) [Entitic vol] 9.7 fL Normal 9.5-13.5 The [facility] Comment on above: Performed By: #### C BC ####[facility] Cdjghryail0599 [place] [phone]. Farhat Elvis PLT 171 103/ul Normal 150-450 [facility] Comment on above: Performed By: #### C BC ####[facility] Yczslihyyq[address] [place], [place] [address]Dr. Farhat Elvis RBC 4.30 106/ul Critically low 4.70-6.10 [facility] Comment on above: Performed By: #### C BC ####[facility] Zifcnmmigy[address] [place], [place] [address]Dr. Farhat Leal WBC 8.9 103/ul Normal 4.0-11.0 [facility] Comment on above: Performed By: #### C BC ####[facility] [address]wopiasm[address] [place] [address]Dr. Madelynlorri Leal Covid-19 PCR (CVDTB)on SARS-CoV-2 (COVID-19) RNA JOSH+probe Ql (Unsp spec) Not detected Normal NOT DETECTED The [facility] Comment on above: Result Comment: When diagnostic [...] for this test is supported by the [place] of Health and Human Service's declaration that [...] be used). Performed By: #### C VDTBH ####[facility] Julpovfbya39[address] [place] [address]Dr. Farhat Leal PROF 14(COMP METB)on 022 Albumin [Mass/Vol] 2.6 g/dL Critically low 3.4-5.0 Th e [facility] Comment on above: Performed By: #### C MP ####[facility] [address]qckvsmicz[address] [place], [place] [address]DrSkylar Leal Albumin/Globulin [Mass ratio] 0.7 {ratio} Normal [facility] Comment on above: Performed By: #### C MP ####[facility] Txkvuhxyot[address] [place] [address]DrSkylar Leal ALP [Catalytic activity/Vol] 88 U/L Normal 46-116 [facility] Comment on above: Performed By: #### C MP ####[facility] Ddlevedfjf232[address] [place] [address]Dr. Farhat Leal ALT [Catalytic activity/Vol] 15 U/L Critically low 16-63 [facility] Comment on above: Performed By: #### C MP ####[facility] Yhmfnlncpf9835 [place] [address]Dr. Farhat Leal Anion gap [Moles/Vol] 11.7 mmol/L Normal Th [facility] Comment on above: Performed By: #### C MP ####[facility] Cgtunqvvwb[address] [place], [place] [address]Dr. Farhat Leal AST [Catalytic activity/Vol] 25 U/L Normal 15-37 [facility] Comment on above: Performed By: #### C MP ####[facility] Pzykhwwgbp[address] [place], [place] [address]Dr. Farhat Leal Bilirubin [Mass/Vol] 0.6 mg/dL Normal 0.2-1.0 [facility] Comment on above: Performed By: #### C MP ####[facility] V[address]xciwsyfd[address] [place], [place] [address]Dr. Farhat Leal Calcium [Mass/Vol] 8.9 mg/dL Normal 8.5-10.1 [facility] Comment on above: Performed By: #### C MP ####[facility] Digtelxaiw237[address] [place], [place] [address]Dr. Farhat Leal Chloride [Moles/Vol] 93 mmol/L Critically low 98-107 [facility] Comment on above: Performed By: #### C MP ####[facility] Ksvizvlrog[address] [place], [place] [id number]. Farhat Leal CO2 [Moles/Vol] 28.9 mmol/L Normal 21.0-32.0 The [facility] Comment on above: Performed By: #### C MP ####[facility] Nspzgbnubj[address] [place], [place] [address]Dr. Farhat Leal Creatinine [Mass/Vol] 2.09 mg/dL Critically high 0.70-1.30 [facility] Comment on above: Performed By: #### C MP ####[facility] Sxswjvpctz16[address] [place] [address]Dr. Farhat Leal EGFR-AF ETHIOPIAN 38 mL/min/1.73m2 Critically low >=60 [facility] Comment on above: Performed By: #### C MP ####[facility] Afjacmfpeb[address] [place] [address]Dr. Farhat Leal EGFR-NON AF ETHIOPIAN 31 mL/min/1.73m2 Critically low >=60 [facility] Comment on above: Performed By: #### C MP ####[facility] Uskfqrunde[address] [place], [place] [address]Dr. Farhat Leal Globulin (S) [Mass/Vol] 3.7 g/dL Normal [facility] Comment on above: Performed By: #### C MP ####[facility] Pcgkdlosqn[address] [place], [place] [address]Dr. Farhat Leal Glucose [Mass/Vol] 214 mg/dL Critically high 74-106 T [facility] Comment on above: Performed By: #### C MP ####[facility] [address]fwafpwbyc[address] [place], [place] [address]Dr. Farhat Leal Potassium [Moles/Vol] 5.6 mmol/L Critically high 3.5-5.1 [facility] Comment on above: Performed By: #### C MP ####[facility] Satrgzduum[address] [place], [place] [address]Dr. Farhat Leal Protein [Mass/Vol] 6.3 g/dL Critically low 6.4-8.2 Th [facility] Comment on above: Performed By: #### C MP ####[facility] Rvrbfhszlk[address] [place], [place] [address]Dr. Farhat Leal Sodium [Moles/Vol] 128 mmol/L Critically low 136-145 Th [facility] Comment on above: Performed By: #### C MP ####[facility] Qsqzgrsgnv[address] [place], [place] [address]Dr. Farhat Leal Urea nitrogen [Mass/Vol] 65.0 mg/dL Critically high 7.0-18.0 [facility] Comment on above: Performed By: #### C MP ####[facility] Kdoaomasov8[address] [place] [address]Dr. Farhat Leal Urea nitrogen/Creatinine [Mass ratio] 31.1 mg/mg Normal [facility] Comment on above: Performed By: #### C MP ####[facility] Wldnrnqygm95[address] [place] [address]Dr. Farhat Leal Albumin [Mass/Vol] 2.5 g/dL Critically low 3.4-5.0 Th e [facility] Comment on above: Performed By: #### T MYRIAM, CMP ####[facility] Biwvrqgkyj[address] [place], [place] [address]Dr. Farhat Leal Albumin/Globulin [Mass ratio] 0.7 {ratio} Normal [facility] Comment on above: Performed By: #### T MYRIAM, CMP ####[facility] Vuiqtqymdn[address] [place], [place] [address]Dr. Farhat Leal ALP [Catalytic activity/Vol] 83 U/L Normal 46-116 [facility] Comment on above: Performed By: #### T MYRIAM, CMP ####[facility] Yskaxizjjd64[address] [place], [place] [address]Dr. Farhat Leal ALT [Catalytic activity/Vol] 16 U/L Normal 16-63 [facility] Comment on above: Performed By: #### T MYRIAM, CMP ####[facility] Rcosmzoyzj[address] [place], [place] [address]Dr. Farhat Leal Anion gap [Moles/Vol] 9.7 mmol/L Normal [facility] Comment on above: Performed By: #### T MYRIAM, CMP ####[facility] Xisdmfygmu[address] [place], [place] [address]Dr. Farhat Leal AST [Catalytic activity/Vol] 27 U/L Normal 15-37 [facility] Comment on above: Performed By: #### T MYRIAM, CMP ####[facility] S[address]qlmkfijy[address] [place], [place] [address]Dr. Farhat Leal Bilirubin [Mass/Vol] 0.5 mg/dL Normal 0.2-1.0 [facility] Comment on above: Performed By: #### T SH, CMP ####[facility] [address]vyvjfjtqp[address] [place], [place] [address]Dr. Farhat Leal Calcium [Mass/Vol] 8.8 mg/dL Normal 8.5-10.1 [facility] Comment on above: Performed By: #### T SH, CMP ####[facility] Kcsxwcsspq[address] [place], [place] [address]Dr. Madelynlorri Lael Chloride [Moles/Vol] 95 mmol/L Critically low 98-107 [facility] Comment on above: Performed By: #### T SH, CMP ####[facility] [address] [place], [place] [address]Dr. Madelynlorri Leal CO2 [Moles/Vol] 30.5 mmol/L Normal 21.0-32.0 [facility] Comment on above: Performed By: #### T SH, CMP ####[facility] [address] [place], [place] [address]Dr. Farhat Elvis Creatinine [Mass/Vol] 2.18 mg/dL Critically high 0.70-1.30 [facility] Comment on above: Performed By: #### T SH, CMP ####[facility] [address] [place], [place] [address]Dr. Madelynlorri Elvis EGFR-AF ETHIOPIAN 36 mL/min/1.73m2 Critically low >=60 [facility] Comment on above: Performed By: #### T SH, CMP ####[facility] [address] [place], [place] [address]Dr. Madelynlorri Elvis EGFR-NON AF ETHIOPIAN 30 mL/min/1.73m2 Critically low >=60 [facility] Comment on above: Performed By: #### T SH, CMP ####[facility] [address] [place], [place] [address]Dr. Farhat Leal Globulin (S) [Mass/Vol] 3.5 g/dL Normal [facility] Comment on above: Performed By: #### T SH, CMP ####[facility] [address] [place], [place] [address]Dr. Madelynlorri Leal Glucose [Mass/Vol] 141 mg/dL Critically high 74-106 T [facility] Comment on above: Performed By: #### T MYRIAM, CMP ####[facility] [address] [place], [place] [address]Dr. Madelynlorri Leal Potassium [Moles/Vol] 5.2 mmol/L Critically high 3.5-5.1 [facility] Comment on above: Performed By: #### T MYRIAM, CMP ####[facility] [address] [place], [place] [address]Dr. Farhat Leal Protein [Mass/Vol] 6.0 g/dL Critically low 6.4-8.2 [facility] Comment on above: Performed By: #### T MYRIAM, CMP ####[facility] [address] [place], [place] [address]Dr. Farhat Leal Sodium [Moles/Vol] 130 mmol/L Critically low 136-145 [facility] Comment on above: Performed By: #### T MYRIAM, CMP ####[facility] [address] [place], [place] [address]Dr. Farhat Leal Urea nitrogen [Mass/Vol] 63.0 mg/dL Critically high 7.0-18.0 [facility] Comment on above: Performed By: #### T MYRIAM, CMP ####[facility] [address] [place], [place] [address]Dr. Farhat Leal Urea nitrogen/Creatinine [Mass ratio] 28.9 mg/mg Normal [facility] Comment on above: Performed By: #### T MYRIAM, CMP ####[facility] [address] [place], [place] [address]Dr. Farhat Leal PROTIMEon 09-18-2021 INR Coag (PPP) [Relative time] 1.06 {INR} Normal [facility] Comment on above: Performed By: #### P T, PTT ####[facility] [address] [place], [place] [address]Dr. Farhat Leal INR GUIDELINES SEE BELOW Normal [facility] Comment on above: Result Comment: MALINA RED INR: 2.0 - 3.0 CONDITIONS NOT LISTED BELOW 2.5 - 3.5 FOR PROSTHETIC HEART VALVE REPLACEMENT 2.5 - 3.5 RECURRENT THROMBOSIS Performed By: #### P T, PTT ####[facility] [address] [place] [address]Dr. Farhat Leal PT Coag (PPP) [Time] 11.4 s Normal 9.0-11.6 [facility] Comment on above: Performed By: #### P T, PTT ####[facility] [address] [place] [address]Dr. Farhat Leal PTTon 09-18-2021 aPTT Coag (Bld) [Time] 27.9 s Normal 22.3-36.2 [facility] Comment on above: Performed By: #### P T, PTT ####[facility] [address] [place] [address]Dr. Farhat Leal TSHon 09-18-2021 TSH 7.099 uIU/mL Critically high 0.358-3.740 [facility] Comment on above: Performed By: #### T SH, CMP ####[facility] [address] [place] [address]Dr. Farhat Leal US SALOME DOP LEG RTon 09-19-19 22 US SALOME DOP LEG RT Normal [facility] XR CHEST 1 Von 09-18-2021 XR CHEST 1 V Normal [facility] XR HIP RT 2 3V W PELVISon XR HIP RT 2 3V W PELVIS Normal [facility] Vital Signs Date Time Vital Sign Value Performing Clinician Facility 03-18-2023 13:37-0500 Body temperature 98.01 [degF] Dale InflowControl DO Work Phone: [facility] 03-18-2023 13:37-0500 Diastolic blood pressure 64 mm[Hg] [facility] DO Work Phone: [facility] 03-18-2023 13:37-0500 Heart rate 72 /min [facility] DO Work Phone: [facility] 03-18-2023 13:37-0500 SaO2% (BldA) [Mass fraction] 98 % Ni Petznick DO Work Phone: [facility] 03-18-2023 13:37-0500 Systolic blood pressure 118 mm[Hg] Ni Petznick DO Work Phone: [facility] 07-20-2022 13:35-0400 Body temperature 97.4 [degF] DO Devon Ball Work Phone: [facility] 07-20-2022 13:35-0400 Diastolic blood pressure 50 mm[Hg] DO Devon Ball Work Phone: [facility] 07-20-2022 13:35-0400 Heart rate 67 /min DO Devon Ball Work Phone: [facility] 07-20-2022 13:35-0400 Respiratory rate 20 /min DO Devon Ball Work Phone: [facility] 07-20-2022 13:35-0400 Systolic blood pressure 98 mm[Hg] DO Devon Ball Work Phone: [facility] 06-29-2022 14:46-0400 Body height 193.04 cm DO Devon Ball Work Phone: [facility] 02-26-2022 13:11-0500 Body temperature 96.6 [degF] Hina Peterson MD Work Phone: [facility] 02-26-2022 13:11-0500 Diastolic blood pressure 75 mm[Hg] Hina Peterson MD Work Phone: [facility] 02-26-2022 13:11-0500 Heart rate 75 /min Hina Peterson MD Work Phone: [facility] 02-26-2022 13:11-0500 Systolic blood pressure 88 mm[Hg] Hina Peterson MD Work Phone: [facility] 02-05-2022 08:29-0500 Body temperature 96.69 [degF] [facility] Work Phone: [facility] 02-05-2022 08:29-0500 Diastolic blood pressure 42 mm[Hg] [facility] Work Phone: [facility] 02-05-2022 08:29-0500 Heart rate 79 /min [facility] Work Phone: [facility] 02-05-2022 08:29-0500 SaO2% (BldA) [Mass fraction] 100 % [facility] Work Phone: [facility] 02-05-2022 08:29-0500 Systolic blood pressure 72 mm[Hg] [facility] Work Phone: [facility] 01-12-2022 11:00-0500 Diastolic blood pressure 54 mm[Hg] Alissa Major WATER SOFTENER INSTALLER.CAPTAIN/CHECK AIRMAN Work Phone: [facility] 01-12-2022 11:00-0500 Heart rate 88 /min Alissa Major WATER SOFTENER INSTALLER.CAPTAIN/CHECK AIRMAN Work Phone: [facility] 01-12-2022 11:00-0500 SaO2% (BldA) [Mass fraction] 93 % Alissa Major WATER SOFTENER INSTALLER.CAPTAIN/CHECK AIRMAN Work Phone: [facility] 01-12-2022 11:00-0500 Systolic blood pressure 96 mm[Hg] Alissa Major WATER SOFTENER INSTALLER.CAPTAIN/CHECK AIRMAN Work Phone: [facility] 01-12-2022 10:12-0500 Body temperature 97.9 [degF] Alissa Major WATER SOFTENER INSTALLER.CAPTAIN/CHECK AIRMAN Work Phone: [facility] 01-12-2022 10:12-0500 Respiratory rate 18 /min Alissa Major WATER SOFTENER INSTALLER.CAPTAIN/CHECK AIRMAN Work Phone: [facility] 11-17-2021 15:59-0400 Body height 193 cm No Reeder DO Work Phone: [facility] 11-17-2021 15:59-0400 Body weight 111.58 kg No Reeder DO Work Phone: [facility] 11-17-2021 15:59-0400 Diastolic blood pressure 59 mm[Hg] No Reeder DO Work Phone: [facility] 11-17-2021 15:59-0400 Heart rate 86 /min No Reeder DO Work Phone: [facility] 11-17-2021 15:59-0400 SaO2% (BldA) [Mass fraction] 97 % No Reeder DO Work Phone: [facility] 11-17-2021 15:59-0400 Systolic blood pressure 104 mm[Hg] No Reeder DO Work Phone: [facility] Encounters Encounter Date Encounter Type Care Provider Facility Start: 03-18-2023 End: 03-18-2023 ambulatory NI CABRERA Not Available Start: 03-18-2023 End: 03-18-2023 Office outpatient visit 25 minutes Ni Cabrera DO Work Phone: [facility] [address] Comment on above: 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 ([facility]/HCC) (Primary Dx); 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 ([facility]/HCC); Type 1 diabetes mellitus with nephropathy ([facility]); Type 1 diabetes mellitus with hypoglycemia and without coma ([facility]); 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 ([facility]/HCC) Start: 02-17-2023 End: 02-17-2023 ambulatory Devon Lillie Other [employer] Other Start: 02-17-2023 Telephone encounter Devon Moreira [facility] Start: 01-14-2023 End: 01-14-2023 ambulatory Devon Lillie Other [employer] Other Start: 01-14-2023 [facility] nursing facil c are/day minor complj 15 min [facility] Start: 12-10-2022 End: 12-10-2022 ambulatory Devon Lillie Other [employer] Other Start: 12-10-2022 [facility] nursing facil c are/day minor complj 15 min [facility] Start: 11-12-2022 End: 11-12-2022 ambulatory Devon Lillie Other [employer] Other Start: 11-12-2022 Sbsq nursing facil c are/day minor complj 15 min [facility] Start: 10-16-2022 Refill Asia Pike MD Work Phone: [facility] Comment on above: Med Change Request Start: 10-12-2022 End: 10-12-2022 ambulatory Devon Moreira Other [employer] Other Start: 10-12-2022 Telephone encounter Devon NUNEZ G [facility] Start: 10-08-2022 End: 10-08-2022 ambulatory Devon Moreira Other [employer] Other Start: 10-08-2022 Sbsq nursing facil c are/day new problem 25 min [facility] Start: 09-22-2022 Refill Ariadna Mcdowell [facility] Comment on above: Rx Refills Start: 09-10-2022 End: 09-10-2022 ambulatory Devon Moreira Other [employer] Other Start: 09-10-2022 Sbsq nursing facil c are/day new problem 25 min [facility] Start: 09-09-2022 End: 09-09-[address] [facility] Start: 08-06-2022 End: 08-06-2022 ambulatory Devon Moreira Other [employer] Other Start: 08-06-2022 Sbsq nursing facil c are/day new problem 25 min [facility] Start: 07-22-2022 End: 07-22-2022 ambulatory Devon Moreira Other [employer] Other Start: 07-22-2022 Telephone encounter Devon Moreira MAYRA G [facility] Start: 07-20-2022 End: 07-20-2022 ambulatory Sadia Aguilar Facility:[facility] Start: 07-20-2022 End: 07-20-2022 ambulatory DO Devon Moreira Work Phone: [facility] Work Phone: Start: 07-20-2022 End: 07-20-2022 Discharged Recurring DO Devon Moreira Work Phone: [facility] Work Phone: Start: 07-13-2022 End: 07-13-[address] DEVON MOREIRA Facility:[facility] Start: 07-10-2022 End: 07-10-[address] DEVON MOREIRA Facility:[facility] Start: 07-03-2022 End: 07-03-[address] DEVON MOREIRA Facility:[facility] Start: 06-26-2022 End: 06-26-[address] DEVON MOREIRA Facility:[facility] Start: 06-26-2022 End: 06-26-[address] DEVON MOREIRA Facility:[facility] Start: 06-25-2022 End: 06-25-2022 ambulatory Devon Moreira Other [employer] Other Start: 06-25-2022 Sbsq nursing facil c are/day minor complj 15 min Devon Moreira [facility] Start: 06-19-2022 End: 06-19-[address] DEVON MORIERA Facility:[facility] Start: 06-15-2022 End: 07-15-2022 ambulatory SHAIKH Kate MURRYA Facility:[facility] Start: 06-12-2022 End: 06-12-[address] DOCTOR WALSH Facility:[facility]1 Start: 06-05-2022 Sbsq nursing facil c are/day new problem 25 min [facility] Start: 06-05-2022 End: 06-05-[address] DEVON MOREIRA [facility] [employer] Other Start: 05-29-2022 End: 05-29-[address] DEVON MOREIRA Facility:[facility]1 Start: 05-22-2022 End: 05-22-[address] DEVON MOREIRA Facility:[facility] Start: 05-20-2022 End: 05-20-[address] DEVON MOREIRA Facility:[facility] Start: 05-18-2022 End: 06-12-2022 ambulatory SHAIKH Kate MURRAY Facility:[facility] Start: 05-15-2022 End: 05-15-[address] DEVON MOREIRA Facility:[facility]1 Start: 05-13-2022 End: 05-13-2022 ambulatory Van Olivarez WATER SOFTENER INSTALLER.CAPTAIN/CHECK AIRMAN Work Phone: [facility] Comment on above: results Start: 05-13-2022 E-mail encounter fro m caregiver Van Olivarez WATER SOFTENER INSTALLER.CAPTAIN/CHECK AIRMAN Work Phone: [facility] Start: 05-08-2022 End: 05-08-[address] DEVON MOREIRA Facility:[facility]1 Start: 05-07-2022 End: 05-07-2022 ambulatory Devon Moreira Other [employer] Other Start: 05-07-2022 [facility] nursing facil c are/day new problem 25 min Devon Moreira [facility] Start: 05-06-2022 End: 05-06-2022 ambulatory [...] MOREIRA Facility:H1 Start: 04-02-2022 ambulatory Van cortes WATER SOFTENER INSTALLER.CAPTAIN/CHECK AIRMAN Work Phone: [facility] Start: 04-01-2022 End: 04-01-[address] DEVON MOREIRA Facility:[facility]1 Start: 03-22-2022 Anne Pike MD Work Phone: [facility] Comment on above: Med Change Request Start: 03-21-2022 ambulatory DIAMOND H FAWWAD Facilit y:H1 Start: 03-11-2022 End: 03-11-[address] DEVON MOREIRA Facility:H1 Start: 03-10-2022 End: 03-10-[address] [facility] Start: 02-27-2022 Refill Samira Serna [facility] Comment on above: Rx Refills Start: 02-26-2022 End: 02-26-2022 ambulatory DEVON MOREIRA Facility:[facility] Start: 02-26-2022 End: 02-26-2022 Patient encounter procedure [...] Start: 02-05-2022 End: 02-06-2022 ambulatory ARTUR CHEN Facility:[facility] Start: 02-05-2022 End: 02-05-2022 Patient encounter procedure [facility] Work Phone: [facility] Comment on above: Kidney replaced by t ransplant (Primary Dx); 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; longterm current use of immunosuppressive drug Start: 01-26-2022 End: 01-26-[address] DEVON MOREIRA Facility:[facility]1 Start: 01-20-2022 Telephone encounter Van Olivarez APRN.CAPTAIN/CHECK AIRMAN Work Phone: Kidney [facility] Comment on above: Results Start: 01-19-2022 End: 01-19-[address] DEVON MOREIRA Facility:[facility]1 Start: 01-16-2022 ambulatory SHAIKH Kate MURRAY Facilit y:H1 Start: 01-12-2022 End: 01-12-2022 Subsequent hospital visit by physician Alissa Chavira APRN.CAPTAIN/CHECK AIRMAN Work Phone: Angio Comment on above: ILIANA (acute kidney in jury) ([facility]) [N17.9] Start: 12-30-2021 End: 12-30-2021 ambulatory Paresh Fonseca MD Work Phone: Infectious Disease Comment on above: MRSA bacteremia (Arabella munira Dx); Diabetic foot ulcer with osteomyelitis (HCC) Start: 12-30-2021 End: 12-30-2021 Telemedicine consultation with patient Paresh Fonseca MD Work Phone: [facility] Start: 12-29-2021 End: 12-29-2021 ambulatory [...] Start: 12-08-2021 Orders Only Artur Burger charles WATER SOFTENER INSTALLER.CAPTAIN/CHECK AIRMAN Work Phone: [facility] Comment on above: Kidney replaced by t ransplant (Primary Dx) Start: 12-07-2021 ambulatory Paresh Fonseca MD Work Phone: [facility] Comment on above: CoPat Start (copat s top 12/27/21) Start: 12-05-2021 Telephone encounter Paresh Fonseca MD Work Phone: Infectious Disease Comment on above: Patient Update (evus held discussion/) Start: 12-01-2021 Follow-up encounter [facility] Provider [facility] Start: 12-01-2021 Patient encounter procedure [facility] Prov ider [facility] Department Start: 11-23-2021 End: 11-28-2021 Evaluation [...] management encounter Start: 11-14-2021 End: 11-15-2021 ambulatory [facility] Facility:H1 Start: 10-24-2021 End: 11-15-2021 ambulatory DIAMOND Kate WHEAT Facility:H1 Start: 10-22-2021 End: 10-23-2021 ambulatory [facility] Facility:H1 Start: 10-06-2021 ambulatory Van cortes WATER SOFTENER INSTALLER.CAPTAIN/CHECK AIRMAN Work Phone: [facility] Start: 09-30-2021 Refill Asia Pike MD Work Phone: [facility] Comment on above: Refill Request Start: 09-19-2021 End: 09-24-2021 Evaluation and management of inpatient DR PROSPER LEES Facility:H1 Start: 09-18-2021 End: 09-19-[address] DEVON MOREIRA Facility:H1 Start: 07-11-2021 Refill Asia Pike MD Work Phone: [facility] Comment on above: Refill Request Start: 06-05-2021 Telephone encounter Van Kuldeep Olivarez WATER SOFTENER INSTALLER.CAPTAIN/CHECK AIRMAN Work Phone: [facility] Comment on above: Results Start: 02-05-2021 End: 02-13-2021 ambulatory UNKNOWN PROVIDER Facility:[facility] Procedures Date Procedure Procedure Detail Performing Clinician Start: 03-18-2023 Hemoglobin glycosyla rk a1c Ni Cabrera DO Work Phone: Start: 02-05-2022 Creatinine other source Asia Pike MD Work Phone: Start: 02-05-2022 Urnls dip stick/tabl et rgnt auto w/o microscopy Asia Pike MD Work Phone: Start: 01-12-2022 Prothrombin time Alissa Chavira WATER SOFTENER INSTALLER.CAPTAIN/CHECK AIRMAN Work Phone: Start: 12-01-2021 [facility] CHECK [facility] Provider Start: 11-29-2021 Microscopic examinat ion of blood, culture DR PROSPER LEES Comment on above: Performed By: #### B [id number] ####[facility] [address] [place] [address]DrSkylar Leal Start: 11-27-2021 Insertion of Infusio n [...] renal transplant KIDNEY TRANSPLANT STATUS Van Olivarez WATER SOFTENER INSTALLER.CAPTAIN/CHECK AIRMAN Work Phone: History of renal transplant Kidney replaced by transplant Artur Leesjasvir WATER SOFTENER INSTALLER.CAPTAIN/CHECK AIRMAN Work Phone: History of renal transplant Kidney replaced by transplant [facility] Work Phone: History of renal transplant Devon Lillie Other History of renal transplant Kidney replaced by transplant Asia Pike MD Work Phone: Plan of Treatment Date Care Activity Detail Author Start: 06-17-2023 End: 06-17-2023 Patient encounter procedure 06/17/2023 2:15 PM EDT Office Visit [facility] [address] [place] [id number] Ni Cabrera DO [address] [place] [address] [facility] [address] Start: 06-16-2023 Hemoglobin A1c measurement Diabetes: Hemoglobin A1C [facility] Start: 02-26-2023 BP CONTROLLED (<130/80) BP CONTROLLE D (<130/80) [facility] Start: 02-05-2023 BP CONTROLLED (<130/80) BP CONTROLLE D (<130/80) [facility] Start: 01-12-2023 BP CONTROLLED (<130/80) BP CONTROLLE D (<130/80) [facility] Start: 11-17-2022 BP CONTROLLED (<130/80) BP CONTROLLE D (<130/80) [facility] Start: 10-16-2022 Influenza vaccination C [facility] Start: 05-15-2022 Medicare Annual Wellness (AWV) Medicare Annual Wellness (AWV) [facility] Start: 04-08-2022 BP CONTROLLED (<130/80) BP CONTROLLE D (<130/80) [facility] Start: 02-15-2022 ADVANCE DIRECTIVE DISCUSSION ADVANCE DIRECTIVE DISCUSSION [facility] Start: 02-15-2022 DEPRESSION ASSESSMENT DEPRESSION ASS ESSMENT [facility] Start: 02-05-2022 COVID-19 VACCINE (5 - Yung risk series) COVID-19 VACCINE (5 - Yung risk series) [facility] Start: 11-27-2021 COVID-19 VACCINE (4 - Booster for Yung series) COVID-19 VACCINE (4 - Booster for Yung series) [facility] Start: 11-04-2021 Hemoglobin A1c/Hemoglobin.total in Blood HBA1C [facility] Start: 10-16-2021 [facility] Start: 03-26-2021 COVID-19 VACCINE (3 - Yung risk 3-dose series) COVID-19 VACCINE (3 - Yung risk 3-dose series) [facility] Start: 03-26-2021 COVID-19 VACCINE (3 - Yung risk series) COVID-19 VACCINE (3 - Yung risk series) [facility] Start: 02-15-2021 ADVANCE DIRECTIVE DISCUSSION ADVANCE DIRECTIVE DISCUSSION [facility] Start: 02-15-2021 DEPRESSION ASSESSMENT DEPRESSION ASS ESSMENT [facility] Start: 01-05-2016 Hepatitis B screening URINE AL BUMIN:CREATININE RATIO [facility] Start: 07-31-2015 Pneumococcal Vaccine : 65+ Years (3 - PCV) Pneumococcal Vaccine: 65+ Years (3 - PCV) [facility] Start: 04-06-2015 Hemoglobin A1c/Hemoglobin.total in Blood HBA1C [facility] Start: 11-22-2010 Hepatitis B surface antibody level LDL CHOLESTEROL [facility] Start: 2009 ADULT PREVNAR-13 ADULT PREVNAR-13 Cl [facility] Start: 2009 PNEUMOVAX AGE 65 AND OVER WITH 5YR LOOKBACK (#1) PNEUMOVAX AGE 65 AND OVER WITH 5YR LOOKBACK (#1) [facility] Start: 1994 SHINGRIX VACCINE (1 of 2) SHINGRIX VACCINE (1 of 2) [facility] Start: 10-18-1963 HEPATITIS A (1 of 2 - Risk 2-dose series) HEPATITIS A (1 of 2 - Risk 2-dose series) [facility] Start: 10-18-1963 Hepatitis A Vaccine (1 of 2 - Risk 2-dose series) Hepatitis A Vaccine (1 of 2 - Risk 2-dose series) [facility] Start: 10-18-1963 SHINGRIX VACCINE (1 of 2) SHINGRIX VACCINE (1 of 2) [facility] Start: 10-18-1963 Urine microalbumin profile [facility] Start: 1962 ANNUAL PCP TEAM SANDBLASTING SUPERVISOR MATTHEW DISEASE VISIT ANNUAL PCP TEAM CHRONIC DISEASE VISIT [facility] Start: 1956 Adult depression screening assessment DEPRESSION SCREENING [facility] Start: 1954 3 comp foot exam completed DIABETIC FOOT EXAM [facility] Start: 1954 Glaucoma screening Diabetes: R etinopathy Screening [facility] Start: 1954 Hepatitis C antibody , confirmatory test DILATED RETINAL EXAM [facility] Start: 1950 Pneumococcal Vaccine : 65+ (1 - PCV) Pneumococcal Vaccine: 65+ (1 - PCV) [facility] Start: 1950 PNEUMOCOCCAL: 65+ (1 - PCV) PNEUMOCOCCAL: 65+ (1 - PCV) [facility] Start: 1945 HEPATITIS A (1 of 2 - Risk 2-dose series) HEPATITIS A (1 of 2 - Risk 2-dose series) [facility] URINALYSIS, REFLEX MICROSCOPIC URINALYSIS, REFLEX MICROSCOPIC Lab Routine Screening for genitourinary condition Ordered: 10/06/2021 [facility] Work Phone: Comment on above: Ordered: 10/06/2021 URINALYSIS, REFLEX MICROSCOPIC URINALYSIS, REFLEX MICROSCOPIC Lab Routine Screening for genitourinary condition Ordered: 04/02/2022 [facility] Work Phone: Comment on above: Ordered: 04/02/2022 End: 11-17-2022 US LEG ARTERIAL PERIPH UNL VAS LAB US LEG ARTERIAL PERIPH UNL VAS LAB Vascular Lab Routine PAD (peripheral artery disease) (HCC) Nonhealing ulcer of heel (HCC) 1 Occurrences starting 11/17/2021 until 11/17/2022 [facility] Work Phone: Comment on above: 1 Occurrences starti ng 11/17/2021 until 11/17/2022 End: 11-17-2022 US LEG VEIN DVT UNL VAS LAB US LEG VEIN DVT UNL VAS LAB Vascular Lab Routine Acute deep vein thrombosis (DVT) of proximal end of right lower extremity (HCC) 1 Occurrences starting 11/17/2021 until 11/17/2022 [facility] Work Phone: Comment on above: 1 Occurrences starti ng 11/17/2021 until 11/17/[address] [facility] [address] [facility] VAS [facility] Immunizations Immunization Date Immunization Notes Care Provider Fa cili 12-11-2021 COVID-19 booster vaccine, age 12+ yr, bivalent (PFIZER-BIONTECH) Paresh Fonseca MD Work Phone: [facility] 12-11-2021 influenza, high-dose , quadrivalent vaccine (FLUZONE HIGH DOSE QUADRIVALENT) Paresh Fonseca MD Work Phone: [facility] 12-11-2021 influenza virus vaccine, unspecified formulation Ariadna Mcdowell Phu [facility] 10-24-2021 influenza, high dose seasonal, preservative-free Ni Petznick DO Work Phone: [facility] 01-19-2019 influenza, high dose seasonal, preservative-free Ni Petznick DO Work Phone: [facility] 11-25-2017 Seasonal trivalent influenza vaccine, adjuvanted, preservative free Ni Petznick DO Work Phone: [facility] 11-05-2016 influenza, high dose seasonal, preservative-free Ni Petznick DO Work Phone: [facility] 07-30-2014 pneumococcal polysaccharide vaccine, 23 valent Ni Petznick DO Work Phone: [facility] 03-09-2011 influenza virus vaccine, unspecified formulation Van Olivarez APRN.CAPTAIN/CHECK AIRMAN Work Phone: [facility] 12-17-2007 influenza virus vaccine, unspecified formulation Van Olivarez APRN.CAPTAIN/CHECK AIRMAN Work Phone: [facility] Work Phone: 02-11-2006 influenza virus vaccine, unspecified formulation Van Olivarez APRN.CAPTAIN/CHECK AIRMAN Work Phone: [facility] Work Phone: 12-07-2003 influenza virus vaccine, unspecified formulation Van Olivarez APRN.[facility] Work Phone: [facility] Work Phone: 12-07-2003 pneumococcal polysaccharide vaccine, 23 valent Van Olivarez APRN.[facility] Work Phone: [facility] Work Phone: NEGATED: Highlighted row has not occurred!12-10-2021 COVID-19 booster vaccine, age 12+ yr, bivalent ([employer]) Paresh Fonseca MD Work Phone: [facility] NEGATED: Highlighted row has not occurred!12-10-2021 influenza, high-dose, quadrivalent vaccine (FLUZONE HIGH DOSE QUADRIVALENT) Paresh Fonseca MD Work Phone: [facility] Payers Date Payer Category Payer Medicare MEDICARE MEDICAR E A AND B [id number] 2009-Present [phone] [address] [address] [place] [address] Medicare [id number] .[id number] 2009 Medicare [id number]. 1.13.159.2.7.3 .161531.315 2009 Unknown [employer] MEDIC[employer] SUPPLEMENT [id number] 2009-Present [phone] [address] [place] [address] Indemnity [id number] 1.2.840.710318.1.13.159.2.7.3 .737612.315 2009 Unknown 1.2.840.167086. 1.13.159.2.7.3 .628094.315 2009 Unknown [id number] 2.16.8 40.1.681664.19 2009 Unknown [id number] 1959 Medicare [id number] 1959 Self-pay 1944 Unknown [id number] 2.16.840.1.263172.3.579.2.732 1944 Unknown [id number] 2.16.840.1.055002.3.579.2.593 1944 Unknown [id number] 2.16.840.1.364911.3.579.2.593 1944 Unknown [id number] 2.16.840.1.283383.3.579.2.593 1944 Unknown [id number] 2.16.840.1.765571.3.579.2.593 1944 Unknown [id number] 2.16.840.1.168793.3.579.2.593 1944 Unknown [id number] 2.16.840.1.610001.3.579.2.593 1944 Unknown [id number] 2.16.840.1.729032.3.579.2.593 1944 Unknown [id number] 2.16.840.1.242033.3.579.2.593 1944 Unknown [id number] 2.16.840.1.507745.3.579.2.593 1944 Unknown [id number] 2.16.840.1.371684.3.579.2.593 1944 Unknown [id number] 2.16.840.1.577773.3.579.2.593 1944 Unknown [id number] 2.16.840.1.164007.3.579.2.593 1944 Unknown [id number] 2.16.840.1.623587.3.579.2.593 1944 Unknown [id number] 2.16.840.1.302562.3.579.2.593 1944 Unknown [id number] 2.16.840.1.938394.3.579.2.593 1944 Unknown [id number] 2.16.840.1.103729.3.579.2.593 1944 Unknown [id number] 2.16.840.1.546398.3.579.2.593 1944 Unknown [id number] 2.16.840.1.662041.3.579.2.593 1944 Unknown [id number] 2.16.840.1.117236.3.579.2.593 1944 Unknown [id number] 2.16.840.1.347730.3.579.2.593 1944 Unknown [id number] 2.16.840.1.655376.3.579.2.593 1944 Unknown [id number] 2.16.840.1.287465.3.579.2.593 1944 Unknown [id number] 2.16.840.1.731779.3.579.2.593 1944 Unknown [id number] 2.16.840.1.773070.3.579.2.593 1944 Unknown [id number] 2.16.840.1.386580.3.579.2.593 1944 Unknown [id number] 2.16.840.1.200770.3.579.2.593 1944 Unknown [id number] 2.16.840.1.472170.3.579.2.593 1944 Unknown [id number] 2.16.840.1.451102.3.579.2.593 1944 Unknown [id number] 2.16.840.1.012942.3.579.2.593 1944 Unknown [id number] 2.16.840.1.737495.3.579.2.593 1944 Unknown [id number] 2.16.840.1.593756.3.579.2.593 1944 Unknown [id number] 2.16.840.1.090388.3.579.2.593 1944 Unknown [id number] 2.16.840.1.062026.3.579.2.593 1944 Unknown [id number] 2.16.840.1.870428.3.579.2.593 1944 Unknown [id number] 2.16.840.1.092708.3.579.2.593 1944 Unknown [id number] 2.16.840.1.617372.3.579.2.593 1944 Unknown [id number] 2.16.840.1.208112.3.579.2.593 1944 Unknown [id number] 2.16.840.1.022291.3.579.2.593 1944 Unknown [id number] 2.16.840.1.893690.3.579.2.593 1944 Unknown [id number] 2.16.840.1.678958.3.579.2.593 1944 Unknown [id number] 2.16.840.1.139208.3.579.2.593 1944 Unknown [id number] 2.16.840.1.267293.3.579.2.593 1944 Unknown [id number] 2.16.840.1.502911.3.579.2.593 1944 Unknown [id number] 2.16.840.1.558624.3.579.2.593 1944 Unknown [id number] 2.16.840.1.974295.3.579.2.593 1944 Unknown [id number] 2.16.840.1.175184.3.579.2.593 1944 Unknown [id number] 2.16.840.1.463889.3.579.2.125 9 Medicare Medicare Outpatient [id number] [id number] Unknown [id number] 2.16.840.1.983016.3.579.2.593 Unknown [id number] 2.16.840.1.988402.3.579.2.593 Unknown [id number] 2.16.840.1.208468.3.579.2.531 Social History Date Type Detail Facility Start: 03-09-2011 End: 07-07-2022 Tobacco smoking status NHIS Ex-smoker [facility] Work Phone: End: 02-15-1975 History of tobacco use Current smoker [facility] Work Phone: End: 02-15-1975 History of tobacco use Cigarette Smoker [facility] Work Phone: Start: 04-08-2021 End: 02-26-2022 Alcohol intake Current drinker of alcohol (finding) [facility] Start: 1945 Sex Assigned At Not on file C [facility] Start: 03-09-2011 End: 10-20-2022 Cigarettes smoked current (pack per day) - Reported 1 [facility] Work Phone: Start: 03-09-2011 End: 02-26-2022 Tobacco use and exposure Smokeless tobacco non-user [facility] Start: 09-25-2021 History SDOH Financial 5 [facility] Start: 09-25-2021 History SDOH Food Worry 1 [facility] Start: 09-25-2021 History SDOH Transpo rt Med 2 [facility] Start: 09-14-2021 End: 01-12-2022 Exposure to SARS-CoV-2 (event) Not sure [facility] Start: 02-26-2022 End: 10-20-2022 Sex Assigned At [facility] Work Phone: Start: 1945 Sex Assigned At Male F [facility] How hard is it for y ou to pay for the very basics like food, housing, medical care, and heating Not hard at all [facility] Work Phone: (I/We) worried shiloh er (my/our) food would run out before (I/we) got money to buy more. Never true [facility] Work Phone: In the past 12 month s, was there a time when you were not able to pay the mortgage or rent on time? No [facility] Work Phone: Start: 03-18-2023 Alcohol intake Ex-drinker (finding) [facility] How often to you hav e a drink containing alcohol? 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 He is being transported by a pile driver operator. 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 documented in this encounter [facility] 01-14-2023 Evaluation note Encounter Date [...] are maintaining regular scheduled appts with their oracle programmer analyst. No bleeding complications Dec, Hyperlipidemia LDL goal [...] balance and to avoid dehydration. Dec, terminal make up operator (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 of insulin (ICD-10 - Z79.4) [facility] 10-26-2023 Evaluation note* Encounter Date Diagnosis Assessment Notes Treatment Notes Treatment Clinical Notes Nov, Longstanding persistent atrial fibrillation (ICD-10 - I48.11) This patient is in NSR or rate controlled. This patient is anticoagulated to prevent thromboembolic events. They are maintaining regular scheduled appts with their oracle programmer analyst. No bleeding complications Nov, Hyperlipidemia LDL goal [...] Z94.0) Monthly labs to transplant clinic Nov, longterm (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 of insulin (ICD-10 - Z79.4) [facility] 09-28-2023 Evaluation note* Encounter Date Diagnosis [...] are maintaining regular scheduled appts with their oracle programmer analyst. No bleeding complications Oct, Type 1 diabetes [...] Z94.0) Continue routine surveillance labs. Oct, terminal make up operator (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 of insulin (ICD-10 - Z79.4) [facility] 09-01-2023 Miscellaneous Notes* Telephone Encounter - Mary Martinez - 10/16/2022 1:08 PM EDT Pharmacy comment: REQUEST FOR 90 DAYS PRESCRIPTION. DX Code Needed. 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 No bleeding complications Sep, Type 1 diabetes [...] for cerebrovascular and cardiovascular disease. Sep, terminal make up operator (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 of insulin (ICD-10 - Z79.4) Sep, Kidney transplant status (ICD-10 - Z94.0) f/u transplant clinic Continue surveillance labs [facility] 08-08-2023 Miscellaneous Notes* Telephone Encounter - Ariadna Mcdowell Tech - 09/22/2022 8:58 AM EDT Pharmacy requesting refills as follows: Requested Prescriptions Pending Prescriptions Disp Refills tacrolimus IR (PROGRAF) 1 mg capsule Sig: Take 1 capsule by mouth DAILY AT 6 PM. Please review and advise. Ariadna Mcdowell, documented in [facility] Evaluation note* Encounter Date Diagnosis Assessment Notes Treatment Notes Treatment Clinical Notes Aug, Longstanding persistent atrial fibrillation (ICD-10 - I48.11) This patient is in NSR or rate controlled. This patient is anticoagulated to prevent thromboembolic events. They are maintaining regular scheduled appts with their oracle programmer analyst. No s/s bleeding Aug, Type 1 diabetes [...] for cerebrovascular and cardiovascular disease. Aug, terminal make up operator (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 of insulin (ICD-10 - Z79.4) Aug, Kidney transplant status (ICD-10 - Z94.0) Continue close surveillance w/ labs [facility] 07-26-2023 NotePatient here for 1.5 year follow up and device check. Lightheaded in the office today, as BP is very low. He denies chest pain, SOB, palpitations, and bleeding on warfarin. Had routine labs last week. Review of Systems Musculoskeletal: Positive for arthritis, joint pain and myalgias. Neurological: Positive for light-headedness. All other systems reviewed and are negative.[facility] 09-09-2022 NoteUT Electrophysiology Consult Note Reason [...] at about 50-60 systolic. patient with friend/ pile driver operator from facility, we will take patient to [...] of the right coronary artery with robust [id number] collaterals. 5. Normal global left ventricular systolic [...] Follow up with Dr. Galvez in the [facility] in the next 2 weeks; he may follow up with Dr. Orosco as needed for interventional issues. 5. Follow up with Dr. Devon Moreira as scheduled. PMH: Past Medical History: Diagnosis Date Abnormal ECG Arrhythmia Atrial fibrillation (CMS/HCC) Chronic kidney disease Coronary artery disease Diabetes mellitus (CMS/HCC) (more content not included)...[facility]06-22-2023 Evaluation note* Encounter Date Diagnosis Assessment [...] are maintaining regular scheduled appts with their oracle programmer analyst. No bleeding complications Jul, Type 1 diabetes [...] risk for cerebrovascular and cardiovascular disease. Jul, longterm (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 of insulin (ICD-10 - Z79.4) Jul, Kidney transplant status (ICD-10 - Z94.0) Monthly labs, ongoing surveillance from transplant clinic [facility] 05-15-2023 Progress note Author Sadia Aguilar [facility] June 29, 2022 2:47pm Note Date/Time June 29, 2022 2:46p m [facility] [address] [place] [address] Wound Center Provider Note Signed Patient: Alex Almonte MR#: [id number] : 1945 Acct:[id number] Age/Sex: 76 / M Copies to: DO Sadia Whyte APRN~ HPI Date of Visit Date of Visit: Date of Service: 06/29/2022 Time of Service: 14:45 Narrative HPI: 12/30/21 Alex is a 76 year old male presenting to [facility] wound care for aninitial visit for eval and treatment of a sacral/coccyx area pressure ulcer. He resides at [facility]. There is an PHOTOGRAPH MOUNTER present for the visit. Medicalhoney gel will [...] his brief that was cleaned by this technical report writer as well as another nursing staff [...] from initial visit here Mode of Arrival/ Foreign Exchange Services Manager: Facility vehicle Assistive Device Used Today: Wheelchair and Indra Lives with:: Care/Nursing Facility Appetite Description: Within Normal Limits Who helps w/ dressing change?: Nursing Facility Why Do You Need Help?: Can't Reach Ulcer, Limited mobility and Taxing effort to leave home Smoking Status: Former smoker [facility] Medical History (Updated 03/03/22 @ [...] Ulcer/Injury Staging: Unstageable Bed Appearance: Beefy Red, Elbing, Yellow and Rolled Edges Percent of Wound [...] By: <Electronically signed by DAVID Aguilar> 06/29/221446 [facility] Work Phone: 1(924) 900-559205-11-2023 Evaluation note* Encounter Date Diagnosis Assessment Notes [...] are maintaining regular scheduled appts with their oracle programmer analyst. No bleeding complications June, Hyperlipidemia LDL goal <100 (ICD-10 - E78.5) Instructed on diet and exercise with continued statin therapy.Discussed the beneficial effects of lowering cholesterol in reducing the risk for cerebrovascular and cardiovascular disease. June, longterm (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 of insulin (ICD-10 - Z79.4) June, Kidney transplant status (ICD-10 - Z94.0) No s/s rejection [facility] 04-24-2023 Progress note Author Sadia Aguilar [facility] June 08, 2022 2:10pm Note Date/Time June 08, 2022 2:1 0pm [facility] [address] [place] [address] Wound Center Provider Note Signed Patient: Alex Almonte MR#: [id number] : 1945 Acct:[id number] Age/Sex: 76 / M Copies to: DO Sadia Whyte, DAVID~ HPI Date of Visit Date of Visit: Date of Service: 06/08/2022 Time of Service: 14:07 Narrative HPI: 12/30/21 Alex is a 76 year old male presenting to [facility] wound care for aninitial visit for eval and treatment of a sacral/coccyx area pressure ulcer. He resides at [facility]. There is an PHOTOGRAPH MOUNTER present for the visit. Medicalhoney gel will [...] his brief that was cleaned by this technical report writer as well as another nursing staff [...] from initial visit here Mode of Arrival/ Foreign Exchange Services Manager: Facility vehicle Assistive Device Used Today: Wheelchair and Indra Lives with:: Care/Nursing Facility Appetite Description: Within Normal Limits Who helps w/ dressing change?: Nursing Facility Why Do You Need Help?: Can't Reach Ulcer, Limited mobility and Taxing effort to leave home Smoking Status: Former smoker [facility] Medical History (Updated 03/03/22 @ [...] Ulcer/Injury Staging: Unstageable Bed Appearance: Beefy Red, Elbing, Yellow and Rolled Edges Percent of Wound [...] <Electronically signed by DAVID Aguilar> 06/08/22 1410 [facility] Work Phone: 1(481) 172-559604-21-2023 Evaluation note* Encounter Date Diagnosis Assessment Notes [...] are maintaining regular scheduled appts with their oracle programmer analyst. May, terminal make up operator (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 of insulin (ICD-10 - Z79.4) May, Kidney transplant status (ICD-10 - Z94.0) routine labs per clinic. 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 No open ulcerations present Pain controlled [facility] 03-27-2023 Progress note Author Sadia Aguilar [facility] May 11, 2022 1:41pm Note Date/Time May 11, 2022 1:4 0pm [facility] [address] [place] [address] Wound Center Provider Note Signed Patient: Alex Almonte MR#: [id number] : 1945 Acct:[id number] Age/Sex: 76 / M Copies to: Devon Moreira,DO Sadia Aguilar, WATER SOFTENER INSTALLER~ HPI Date of Visit Date of Visit: Date of Service: 05/11/2022 Time of Service: 13:38 Narrative HPI: 12/30/21 Alex is a 76 year old male presenting to [facility] wound care for aninitial visit for eval and treatment of a sacral/coccyx area pressure ulcer. He resides at [facility]. There is an PHOTOGRAPH MOUNTER present for the visit. Medicalhoney gel will [...] his brief that was cleaned by this technical report writer as well as another nursing staff [...] from initial visit here Mode of Arrival/ Foreign Exchange Services Manager: Facility vehicle Assistive Device Used Today: Wheelchair and Indra Lives with:: Care/Nursing Facility Appetite Description: Within Normal Limits Who helps w/ dressing change?: Nursing Facility Why Do You Need Help?: Can't Reach Ulcer, Limited mobility and Taxing effort to leave home Smoking Status: Former smoker [facility] Medical History (Updated 03/03/22 @ [...] Ulcer/Injury Staging: Unstageable Bed Appearance: Beefy Red, Elbing and Yellow Percent of Wound Bed Granulated/Red: [...] <Electronically signed by DAVID Aguilar> 05/11/22 1341 [facility] Work Phone: 1(977) 213-782303-23-2023 Evaluation note* Encounter Date Diagnosis Assessment Notes [...] are maintaining regular scheduled appts with their oracle programmer analyst. Apr, Type 1 diabetes mellitus with hyperglycemia [...] reviewed at the office visit Apr, terminal make up operator (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 of insulin (ICD-10 - Z79.4) Apr, Kidney transplant status (ICD-10 - Z94.0) Serial labs by clinic Hydrate, tatiana ARVIZU [facility] 03-10-2023 NoteHNO ID: [id number] Author: Keyur Brown MD Service: ? Author Type: Physician Type: Progress Notes Filed: 04/24/2022 10:32 AM Note Text: Encounter opened in error, patient not seen.[facility]02-28-2023 Progress note Author Sadia Aguilar [facility] April 14, 2022 2:19pm Note Date/Time April 14, 2022 2:18pm [facility] [address] [place] [address] Wound Center Provider Note Signed Patient: Alex Almonte MR#: [id number] : 1945 Acct:[id number] Age/Sex: 76 / M Copies to: DO Sadia Whyte, DAVID~ HPI Date of Visit Date of Visit: Date of Service: 04/14/2022 Time of Service: 14:18 Narrative HPI: 12/30/21 Alex is a 76 year old male presenting to [facility] wound care for aninitial visit for eval and treatment of a sacral/coccyx area pressure ulcer. He resides at [facility]. There is an PHOTOGRAPH MOUNTER present for the visit. Medicalhoney gel will [...] his brief that was cleaned by this technical report writer as well as another nursing staff [...] from initial visit here Mode of Arrival/ Foreign Exchange Services Manager: Facility vehicle Assistive Device Used Today: Wheelchair and Indra Lives with:: Care/Nursing Facility Appetite Description: Within Normal Limits Who helps w/ dressing change?: Nursing Facility Why Do You Need Help?: Can't Reach Ulcer, Limited mobility and Taxing effort to leave home Smoking Status: Former smoker [facility] Medical History (Updated 03/03/22 @ [...] Ulcer/Injury Staging: Unstageable Bed Appearance: Beefy Red, Elbing and Yellow Percent of Wound Bed Granulated/Red: [...] <Electronically signed by DAVID Aguilar> 04/14/22 141 [facility] Work Phone: 1(326) 533-634602-16-2023 NotePatient Outreach (KIMBERLY) ALEX ALMONTE ([id number]) 1945 M TRN Date Time Provider Department 04/02/22 VAN OLIVAREZ During your visit today, we recorded the following information about you: Allergies As of Date: 04/02/2022 Noted Allergy Reaction PYRIDOSTIGMINE BROMIDE 08/04/2021 8 - GI Upset Date Reviewed: 02/26/2022 Reviewed by: Braden Abel MA - Fully Assessed Visit Diagnosis:Screening for genitourinary condition [Z13.89] Order(s):URINALYSIS, REFLEX MICROSCOPIC [[id number]] Order #: [id number] Prescriptions as of 04/06/2022 - tacrolimus IR [...] by mouth daily with lunch. 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 DIABETES UNCOMPL ADULT-UNCONTRLLED [[id number]] 02/24/2002 KIDNEY TRANSPLANT STATUS [Z94.0] 09/07/2003 PROPHYLACTIC IMMUNOTHERAPY [Z29.8] 07/30/2006 JAIL STEROIDS [[id number]] 07/30/2006 VITAMIN D DEFICIENCY NOS [E55.9] 09/07/2008 [...] perfusion [R09.89] 09/30/2021 PAD (peripheral artery disease) ([facility]) [I73.9] 09/26/2021 Osteomyelitis (HCC) [M86.9] 11/29/2021 Class 1 obesity due to excess calories with ser*11/29/2021 Mixed hyperlipidemia due to type 2 diabetes myles*11/29/2021 Type 2 diabetes mellitus with diabetic peripher*11/29/2021 Atherosclerosis of inupiat artery of extremity w*11/29/2021 Malnutrition of moderate degree (HCC) [E44.0] 12/01/2021 Dermatitis associated with moisture [L30.8] 12/04/2021 Encounter Status:Closed by CONC[facility]TA [facility]BS on 04/06/22[facility] 03-30-2022 Miscellaneous Notes* Telephone Encounter - Van [...] to pharmacy. Kellenfransicovaibhav Dunia documented in this encounter[facility]02-07-2023 Progress note Author Sadia Aguilar [facility] March 24, 2022 3:00pm Note Date/Time March 24, 2022 2 :59pm [facility] [address] [place] [address] Wound Center Provider Note Signed Patient: Alex Almonte MR#: [id number] : 1945 Acct:[id number] Age/Sex: 76 / M Copies to: Devon Moreira,DO Sadia Aguilar APRN~ HPI Date of Visit Date of Visit: Date of Service: 03/24/2022 Time of Service: 14:58 Narrative HPI: 12/30/21 Alex is a 76 year old male presenting to [facility] wound care for aninitial visit for eval and treatment of a sacral/coccyx area pressure ulcer. He resides at [facility]. There is an PHOTOGRAPH MOUNTER present for the visit. Medicalhoney gel will [...] his brief that was cleaned by this technical report writer as well as another nursing staff [...] from initial visit here Mode of Arrival/ Foreign Exchange Services Manager: Facility vehicle Assistive Device Used Today: Wheelchair and Indra Lives with:: Care/Nursing Facility Appetite Description: Within Normal Limits Who helps w/ dressing change?: Nursing Facility Why Do You Need Help?: Can't Reach Ulcer, Limited mobility and Taxing effort to leave home Smoking Status: Former smoker [facility] Medical History (Updated 03/03/22 @ [...] Ulcer/Injury Staging: Unstageable Bed Appearance: Beefy Red, Elbing and Yellow Percent of Wound Bed Granulated/Red: [...] <Electronically signed by DAVID Aguilar> 03/24/22 1500 [facility] Work Phone: 1(271) 789-289401-17-2023 Progress note Author Sadia Aguilar [facility] March 03, 2022 2:41pm Note Date/Time March 03, 2022 2 :41pm [facility] [address] [place] [address] Wound Center Provider Note Signed Patient: Alex Almonte MR#: [id number] : 1945 Acct:[id number] Age/Sex: 76 / M Copies to: DO Sadia Whyte APRN~ HPI Date of Visit Date of Visit: Date of Service: 03/03/2022 Time of Service: 14:38 Narrative HPI: 12/30/21 Alex is a 76 year old male presenting to [facility] wound care for aninitial visit for eval and treatment of a sacral/coccyx area pressure ulcer. He resides at [facility]. There is an PHOTOGRAPH MOUNTER present for the visit. Medicalhoney gel will [...] his brief that was cleaned by this technical report writer as well as another nursing staff [...] from initial visit here Mode of Arrival/ Foreign Exchange Services Manager: Facility vehicle Assistive Device Used Today: Wheelchair and Indra Lives with:: Care/Nursing Facility Appetite Description: Within Normal Limits Who helps w/ dressing change?: Nursing Facility Why Do You Need Help?: Can't Reach Ulcer, Limited mobility and Taxing effort to leave home Smoking Status: Former smoker [facility] Medical History (Updated 03/03/22 @ [...] Ulcer Pressure Ulcer/Injury Staging: Unstageable Bed Appearance: Elbing and Yellow Percent of Wound Bed Granulated/Red: 90 Percent of Devitalized: 10 Length (cm): 2.2 Width (cm): 1.8 Depth (cm): 1.9 CM Sq: 3.960 Surrounding Tissue Appearance: [place], Hyperpigmented and Satellite lesions Surrounding Tissue Temp: [...] <Electronically signed by DAVID Aguilar> 03/03/22 1441 [facility] Work Phone: [phone] 534-787601-13-2023 Miscellaneous Notes* Telephone Encounter - RAUL Davidson - 02/27/2022 10:24 AM EST Patient phones requesting refills as follows: Per pts sister takes 1 mg in AM and 1 mg in PM Requested Prescriptions Pending Prescriptions Disp Refills tacrolimus IR (PROGRAF) 1 mg capsule Sig: Take 2 capsules by mouth DAILY (6 AM). Please review and advise. RAUL Davidson documented in this encounterBarnesville Hospital01-12-2023 NoteHNO ID: [id number] Author: Hina Peterson MD Service: ? Author Type: Physician Type: Progress Notes Filed: 02/26/2022 4:31 PM Note Text: Heart , Vascular and [facility]acic [facility] DEPARTMENT OF VASCULAR SURGERY OUTPATIENT VISIT DATE [...] his postop visit. He has been in assisted since then and has been recovering from his acute on chronic congestive heart failure. His wound has largely been healing without any issues and the maxwell and sutures were removed at the nursing facility. He comes here with a lateral wound eschar. He denies any fevers, chills, or any drainage. He is on anticoagulation. 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 Magic Cup Imperial with lunch aspirin, enteric coated (ASPIRIN, ENTERIC COATED) 81 mg EC tablet Take 1 tablet by mouth once daily. predniSONE (DELTASONE) 5 mg tablet TAKE 1 TABLET BY MOUTH EVERY DAY oxyCODONE IR (ROXICODONE) 5 mg immediate release tablet 1-2 tablets by ORAL/FEEDING TUBE route every 3 hours as needed. Food Supplement, Lactose-Free (ENSURE MAX (more content not included)... [facility]01-12-2023 History of Present illness Narrative* Hina Peterson MD - 02/26/2022 4:25 PM EST Images from the original note were not included. Heart , Vascular and Thoracic [facility] DEPARTMENT OF VASCULAR SURGERY OUTPATIENT VISIT DATE [...] his postop visit. He has been in assisted since then and has been recovering from his acute on chronic congestive heart failure. His wound has largely been healing without any issues and the maxwell and sutures were removed at the [facility] facility. He comes here with a lateral wound eschar. He denies any fevers, chills, or any drainage. He is on anticoagulation. 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 Patient on mycophenolate mofetil ,cellcept and prednisone Mixed hyperlipidemia due to type 2 diabetes mellitus ([facility]) 11/29/2021 Osteomyelitis ([facility]) 11/29/2021 Paroxysmal atrial fibrillation ([facility]) Renal transplant, status post SA node dysfunction ([facility]) s/p pacemaker Type 2 diabetes mellitus with diabetic neuropathy, with long-term current use of insulin ([facility]) 02/24/2002 PAST SURGICAL HISTORY Procedure Laterality [...] by mouth daily with lunch. Magic Cup Imperial with lunch aspirin, enteric coated (ASPIRIN, ENTERIC [...] 2022 TIME: 4:26 PM documented in this encounterBarnesville Hospital01-05-2023 Miscellaneous Notes* Telephone Encounter - Gwen [...] Home and cell number(Ask for Alex's nurse) [phone] Diagnosis 4 mo f/u wound check Yumiko Mcclain documented in this encounterBarnesville Hospital01-05-2023 Miscellaneous Notes* Telephone Encounter - Augusta Medrano RN - 02/19/2022 11:11 AM EST Alex [place] nursing facility, [facility], called regarding elevated tacrolimus level (23.9). Spoke with bedside nurse, Zoe, today. Level is from last week- unable to clearly determine if medications were held prior to lab work. Reviewed with nurse morning labs should occur prior to lab draws. Patient is scheduled for repeat labs tomorrow. Will assess new level. Augusta Medrano RN documented in this encounterBarnesville Hospital01-04-2023 Miscellaneous Notes* Telephone Encounter - Martina [...] advise. Mercedez Tavares MA documented in this encounterBarnesville Hospital12-27-2022 Progress note Author Sadia Aguilar [facility] February 10, 2022 3:47pm Note Date/Time February 10, 2022 3:47pm [facility] [address] [place] [address] Wound Center Provider Note Signed Patient: Alex Almonte MR#: [id number] : 1945 Acct:[id number] Age/Sex: 76 / M Copies to: DO Sadia Whyte, DAVID~ HPI Date of Visit Date of Visit: Date of Service: 02/10/2022 Time of Service: 15:44 Narrative HPI: 12/30/21 Alex is a 76 year old male presenting to [facility] wound care for aninitial visit for eval and treatment of a sacral/coccyx area pressure ulcer. He resides at [facility]. There is an PHOTOGRAPH MOUNTER present for the visit. Medicalhoney gel will [...] his brief that was cleaned by this technical report writer as well as another nursing staff member, few weeks to follow up Subjective Pain Coccyx: Pain Description: Intermittent Pain Intensity: 0 Wound/Ulcer History When did wound start?: 4 weeks ago- from initial visit here Mode of Arrival/ Foreign Exchange Services Manager: Facility vehicle Assistive Device Used Today: Wheelchair and Indra Lives with:: Care/Nursing Facility Appetite Description: Within Normal Limits Who helps w/ dressing change?: Nursing Facility Why Do You Need Help?: Can't Reach Ulcer, Limited mobility and Taxing effort to leave home Smoking Status: Former smoker [facility] Medical History (Updated 01/20/22 @ [...] Ulcer Pressure Ulcer/Injury Staging: Unstageable Bed Appearance: [place] and Yellow Percent of Wound Bed Granulated/Red: 90 Percent of Devitalized: 10 Length (cm): 2.5 Width (cm): 2.3 Depth (cm): 2.1 CM Sq: 5.750 Surrounding Tissue Appearance: Elbing, Hyperpigmented and Satellite lesions Surrounding Tissue Temp: [...] By: <Electronically signed by DAVID Aguilar> 02/10/227 [facility] Work Phone: [phone] 680-402912-22-2022 NoteHNO ID: [id number] Author: Asia Pike MD Service: ? Author Type: Physician Type: Progress Notes Filed: 02/05/2022 9:38 AM Note Text: [facility] Urologic and Kidney [facility] Transplant Follow up Portions of this note [...] date with medications. Patient brought paperwork from [employer] with all medications being received. Patient unsure if they have been drawing labs regularly. Last Tac from 01/19: 12.9 and K 5.9. In need of current labs. Lab orders will be sent with patient and follows as below: Kidney and Pancreas Transplant Standing Lab Orders [address] [place], [place] [address] February 05, 2022 Alex Almonte 1945 [id number] STANDARD TESTING: Diagnosis Codes: Z94.0 Kidney Transplant [...] AT YOUR LABORATORY FACILITY AND FAX TO [phone]. PLEASE CALL [phone]. Provider: Dr. Pike Current Outpatient Medications Medication [...] by mouth daily with lunch. Magic Cup Imperial with lunch aspirin, enteric coated (ASPIRIN, ENTERIC COATED) 81 mg EC tablet Take 1 tablet by mouth once daily. atorvastatin (LIPITOR) 40 mg tablet 1 tablet by ORAL/FEEDING TUBE route daily at bedtime. (more content not included)...[facility]12-22-2022 History of Present illness Narrative* Asia Pike MD - 02/05/2022 8:20 AM EST Images from the original note were not included. [facility] Urologic and Kidney [facility] Transplant Follow up Portions of this note [...] snacks patient declined. Indra scale at [facility]: 166.2 lbs per patient. Bed sore on coccyx causing discomfort. Being changed regularly at SNF- reported to be smaller around but still as deep. Patient not very up to date with medications. Patient brought paperwork from [employer] with all medications being received. Patient unsure if they have been drawing labs regularly. Last Tac from 01/19: 12.9 and K 5.9. In need of current labs. Lab orders will be sent with patient and follows as below: Kidney and Pancreas Transplant Standing Lab Orders [address] [facility] [address] [place], [place] [address] February 05, 2022 Alex Almonte 1945 [id number] STANDARD TESTING: Diagnosis Codes: Z94.0 Kidney Transplant [...] AT YOUR LABORATORY FACILITY AND FAX TO [phone]. PLEASE CALL [phone]. Provider: Dr. Pike Current Outpatient Medications Medication [...] by mouth daily with lunch. Magic Cup Imperial with lunch aspirin, enteric coated (ASPIRIN, ENTERIC [...] All other system reviews negative. Augusta Medrano weaver [place]: February 05, 2022 9:34 AM I have [...] complexity. Asia Pike MD documented in this encounterBarnesville Hospital12-06-2022 Progress note Author Sadia Aguilar [facility] January 20, 2022 2:21pm Note Date/Time January 20, 2022 2 :21pm [facility] [address] [place] [address] Wound Center Provider Note Signed Patient: Alex Almonte MR#: [id number] : 1945 Acct:[id number] Age/Sex: 76 / M Copies to: DO Sadia Whyte APRN~ HPI Date of Visit Date of Visit: Date of Service: 01/20/2022 Time of Service: 14:17 Narrative HPI: 12/30/21 Alex is a 76 year old male presenting to [facility] wound care for aninitial visit for eval and treatment of a sacral/coccyx area pressure ulcer. He resides at [facility]. There is an PHOTOGRAPH MOUNTER present for the visit. Medicalhoney gel will [...] from initial visit here Mode of Arrival/ Foreign Exchange Services Manager: Facility vehicle Assistive Device Used Today: Wheelchair and Indra Lives with:: Care/Nursing Facility Appetite Description: Within Normal Limits Who helps w/ dressing change?: Nursing Facility Why Do You Need Help?: Can't Reach Ulcer, Limited mobility and Taxing effort to leave home Smoking Status: Former smoker [facility] Medical History (Updated 01/20/22 @ [...] Ulcer Pressure Ulcer/Injury Staging: Unstageable Bed Appearance: Elbing and Yellow Percent of Wound Bed Granulated/Red: 40 Percent of Devitalized: 60 Length (cm): 5.2 Width (cm): 3.4 Depth (cm): 1.8 CM Sq: 17.680 Surrounding Tissue Appearance: Elbing and Hyperpigmented Surrounding Tissue Temp: Warm Drainage [...] <Electronically signed by DAVID Aguilar> 01/20/22 1421 [facility] Work Phone: 1(285) 737-983012-06-2022 Miscellaneous Notes* Telephone Encounter - Van Olivarez APRN.CNP - 01/20/2022 1:12 PM EST Labs noted from yesterday. Pt is currently residing at [facility], I spoke with the Nurse, the results has been addressed by Physician caring for pt. He had been placed on Chlor Con and this has been discontinued and hyperkalemia has been treated. Van Olivarez APRN.CNP documented in this encounterBarnesville Hospital11-28-2022 Surgical operation note* Brief Op Note - Misbah Landis PA-C - 01/12/2022 10:41 AM EST BRIEF OPERATIVE / PROCEDURE NOTE LOG ID: [id number] SURGERY/PROCEDURE DATE: 01/12/2022 INCISION/PROCEDURE START TIME: 10:32 AM INCISION CLOSE/PROCEDURE END TIME: 10:35 AM SURGEON(S)/PROCEDURALIST(S) AND SALES ADVISORY MANAGER(S): Misbah Landis PA-C SURGERY/PROCEDURE(S): Removal tunneled vascular access catheter under local anesthesia ANESTHESIA: Procedural Sedation FINDINGS: Catheter removed intact ESTIMATED BLOOD LOSS: 0 ml SPECIMENS: None COMPLICATIONS: None PRE-OP/PRE-PROCEDURE DIAGNOSIS: Foot Ulcer POST-OP/POST-PROCEDURE DIAGNOSIS: Same as Preop SIGNATURE: Misbah Landis PA-C PATIENT NAME: Alex Almonte DATE: January 12, 2022 TIME: 10:42 AM documented in this encounterBarnesville Hospital11-22-2022 Nurse Note* Laxmi Archibald RN - 01/06/2022 1:55 PM EST Pre-procedure instructions: Contacted patient's sister, Munira Brothers and nurse at [facility], Jada ([phone]) andconfirmed appt. for Gerhard removal scheduled on 01/12/22, at [facility]. If instructions are not followed [...] Arrival at 9:30am to desk QB-1 ([facility]) and check in for your procedure. Landscaper/Transportation: How will you be arriving for your procedure? Ambulance service. To be arranged by [facility]. If you develop any of the following symptoms before your procedure, please call [phone]. Chills, joint pain, rash, sore throat, cough, loss of smell, reddened eyes, vomiting, abdominal pains, diarrhea, loss of taste, severe headache, weakness, bruising or bleeding, fever, muscle pain, shortness of breath Recovery expectations: You can expect to be in recovery for 30 minutes following the procedure. Written instructions provided to patient via [employer] If you have any questions please call [phone] documented in this encounterBarnesville Hospital11-15-2022 Progress note Author Sadia Aguilar [facility] December 30, 2021 1:49pm Note Date/Time December 30, 2021 1:49pm [facility] [address] [place] [address] Wound Center Provider Note Signed Patient: Alex Almonte MR#: [id number] : 1945 Acct:[id number] Age/Sex: 76 / M Copies to: DO Sadia Whyte APRN~ HPI Date of Visit Date of Visit: Date of Service: 12/30/2021 Time of Service: 13:44 Narrative HPI: 12/30/21 Alex is a 76 year old male presenting to [facility] wound care for aninitial visit for eval and treatment of a sacral/coccyx area pressure ulcer. He resides at [facility]. There is an PHOTOGRAPH MOUNTER present for the visit. Medicalhoney gel will [...] start?: 4 weeks ago Mode of Arrival/ Foreign Exchange Services Manager: Facility vehicle Assistive Device Used Today: Wheelchair and Indra Lives with:: Care/Nursing Facility Appetite Description: Within Normal Limits Who helps w/ dressing change?: Nursing Facility Why Do You Need Help?: Can't Reach Ulcer, Limited mobility and Taxing effort to leave home Smoking Status: Former smoker [facility] Medical History (Updated 12/30/21 @ [...] 0.1 CM Sq: 38.500 Surrounding Tissue Appearance: Elbing and Hyperpigmented Surrounding Tissue Temp: Warm Drainage [...] By: <Electronically signed by DAVID Aguilar> 12/30/21 2159 [facility] Work Phone: [phone]) 121-922611-15-2022 History of Present illness Narrative* Paresh Fonseca [...] rehab facility He is currently at [facility] in [facility] Seen on video together with Zoe -history obtained from bedside nursing. he is getting up in a chair, working with PT diet is back to regular hes doing well. 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 has scabs on the R lateral side but no wound care concerns. It continues to heal. He has a follow-up with vascular surgery later December 2021. has a sacral wound -- he has local wound care following this at [facility] WBC 6.0, creatinine -- 0.8. alt 12 [...] by mouth daily with lunch. Magic Cup Imperial with lunch aspirin, enteric coated (ASPIRIN, ENTERIC [...] is a 76 year old male from [facility]. 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 History of PAD CAD status post CABG, diabetes, atrial fibrillatioN He originally presented [facility] for having altered mental status and right [...] 3. Status post right heel I&D at [facility] on 11/24/2021. 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 4. CKD - s/p gerhard placement 5. immunocompromised Status post right open above the ankle [id number] - Enterobacter and MRSA from cultures Gram-positive [...] will need to coordinate with his SNF [phone] --our ID office will need to arrange for IR gerhard removal. Return to ID as needed 10 Minutes spent via virtual visit. SIGNATURE: Paresh Fonseca MD PATIENT NAME: Alex Almonte DATE: December 30, 2021 TIME: 9:52 AM documented in this encounterBarnesville Hospital11-01-2022 Miscellaneous Notes* Telephone Encounter - Sulma Pardo - 12/16/2021 3:13 PM EDT Pt home therapy teacher is requesting orders for Stomp ampushield to be taken off pressure relief because it is causing sores on the thigh. Thanks, Sulma Pardo Belt Cutter documented in this encounterBarnesville Hospital10-31-2022 Miscellaneous Notes* Telephone Encounter - Gwen Alfredo Adm Asst I - 12/15/2021 4:11 PM EDT Rupa LYLES from [facility] [phone] called to report IV Vancomycin was started until today. Patient missed 3 days, should patient makeup missed doses? Please advise. Gwen Alfredo Adm Asst I documented in this encounterBarnesville Hospital10-21-2022 Instructions* Patient Instructions* Paresh Fonseca MD [...] serious illness Are taking any medications (prescription, rrue-svy-lbghfag, vitamins, or herbal products) How will I receive EVUSHELD? EVUSHELD consists of two investigational medicines, tixagevimab and cilgavimab. You will receive 1 dose of EVUSHELD, consisting of 2 separate injections (tixagevimab and cilgavimab). EVUSHELD will be given to you by your healthcare provider as 2 intramuscular injections, given one after the other. Viruses can spinning frame changer time (mutate) and develop into a [...] caused by certain SARS-CoV-2 variants: Viruses can spinning frame changer time (mutate) and develop into a [...] treatment or prevention of COVID-19 go to https://www.fda.gov/vxlkzabea-incqgcsujrzx-yxi- response/ptz-sdmom-yynlzsokiq-slc-wiolxz-bsmktkrko/cuoysjcwb-diz-yxtybirttsxcs for more information. It is your choice [...] to FDA MedWatch at www.fda.gov/medwatch or call 6-981-IJP-1088 or call [employer] . Additional Information If you have questions, visit the website or call the telephone number provided below. Website Telephone number http://[email or web address] How can I learn more about COVID-19? Ask your healthcare provider. Visit https://www.cdc.gov/COVID19 Contact your local or state public health department. What is an Emergency Use Authorization? The [place] FDA has made EVUSHELD (tixagevimab co-packaged with cilgavimab) available under an emergency access mechanism called an Emergency Use Authorization EUA. The EUA is supported by a Hospitality Aide of Health and Human Service ([facility]) declaration that circumstances exist to justify the [...] monohydrate, polysorbate 80, sucrose, water. Distributed by: [employer], [place], [place] Manufactured for: [employer] [place], [place] [employer] 2021. All rightsreserved. documented in this encounterBarnesville Hospital10-21-2022 Miscellaneous Notes* Telephone Encounter - Paresh Fonseca MD - 12/05/2021 3:05 PM EDT Evusheld (tixagevimab/cilgavimab) Eligibility and Patient Discussion The patient agrees to receive Evusheld (tixagevimab 300 mg and cilgavimab 300 mg) at [facility]. The patient verbalized understanding of repeating a COVID test 72 hours prior to the injections. called up patient in response to her [employer]ach[employer] message today she tested covid negative on a rapid test on Wednesday this week Discussed evushed fact sheet and she agrees to proceed she will retest again today to be scheduled for Friday 12/[address] [facility] Paresh Fonseca MD documented in this encounterBarnesville Hospital10-03-2022 Instructions* Patient Instructions* No Reeder DO - 11/17/2021 4:26 PM EDT -- continue coumadin -- will get vascular ultrasound for vein and artery of your right leg -- will have you see my interventional cardiology partner regarding your peripheral artery disease and if your artery disease is impairing your wound healing for the leg ulcer documented in this encounterBarnesville Hospital10-03-2022 History of Present illness Narrative* No Reeder DO - 11/17/2021 3:53 PM EDT Images from the original note were not included. Heart and Vascular [facility]go Department of Cardiovascular Medicine SECTION [...] DVT scan. Leg elevation. No Reeder DO, [facility] Vascular Medicine documented in this encounter[address]16-2022 History of Past illness Narrative* Problem Noted Date Resolved Date Altered tissue perfusion 022 documented as of this encounter (statuses as of 09/30/2021) [address]16-2022 History of Past illness Narrative* Problem Noted Date Resolved Date Altered tissue perfusion documented as of this encounter (statuses as of 10/09/2021) [address]16-2022 History of Past illness Narrative* Problem Noted Date Resolved Date Altered tissue perfusion documented as of this encounter (statuses as of 11/18/2021) [address]16-2022 History of Past illness Narrative* Problem Noted Date Resolved Date Altered tissue perfusion documented as of this encounter (statuses as of 12/01/2021) [address]16-2022 History of Past illness Narrative* Problem Noted Date Resolved Date Altered tissue perfusion documented as of this encounter (statuses as of 12/05/2021) [address]16-2022 History of Past illness Narrative* Problem Noted Date Resolved Date Altered tissue perfusion 022 documented as of this encounter (statuses as of 12/08/2021) [address]16-2022 History of Past illness Narrative* Problem Noted Date Resolved Date Altered tissue perfusion 022 documented as of this encounter (statuses as of 12/08/2021) [address]16-2022 History of Past illness Narrative* Problem Noted Date Resolved Date Altered tissue perfusion 2 022 documented as of this encounter (statuses as of 12/12/2021) [address] [address] History of Past illness Narrative* Problem Noted Date Resolved Date Altered tissue perfusion 09/30/2 022 documented as of this encounter (statuses as of 12/15/2021) [address]16-2022 History of Past illness Narrative* Problem Noted Date Resolved Date Altered tissue perfusion 09/30/2 022 documented as of this encounter (statuses as of 12/16/2021) [address]16-2022 History of Past illness Narrative* Problem Noted Date Resolved Date Altered tissue perfusion 08/16/2 022 documented as of this encounter (statuses as of 12/31/2021) [address]16-2022 History of Past illness Narrative* Problem Noted Date Resolved Date Altered tissue perfusion 16/2 022 documented as of this encounter (statuses as of 01/13/2022) [address]16-2022 History of Past illness Narrative* Problem Noted Date Resolved Date Altered tissue perfusion 16/2 022 documented as of this encounter (statuses as of 01/20/2022) [address]16-2022 History of Past illness Narrative* Problem Noted Date Resolved Date Altered tissue perfusion 16/2 022 documented as of this encounter (statuses as of 02/06/2022) [address]16-2022 History of Past illness Narrative* Problem Noted Date Resolved Date Altered tissue perfusion 16/2 022 documented as of this encounter (statuses as of 02/20/2022) [address]16-[address]22 History of Past illness Narrative* Problem Noted Date Resolved Date Altered tissue perfusion 16/2 022 documented as of this encounter (statuses as of 02/26/2022) [address]16-[address]22 History of Past illness Narrative* Problem Noted Date Resolved Date Altered tissue perfusion 16/2 022 documented as of this encounter (statuses as of 02/27/2022) [address]16-[address]22 History of Past illness Narrative* Problem Noted Date Resolved Date Altered tissue perfusion 16/2 022 documented as of this encounter (statuses as of 03/21/2022) [address]16-2022 History of Past illness Narrative* Problem Noted Date Resolved Date Altered tissue perfusion 16/2 022 documented as of this encounter (statuses as of 03/30/2022) [address]16-2022 History of Past illness Narrative* Problem Noted Date Resolved Date Altered tissue perfusion /16/2 022 documented as of this encounter (statuses as of 04/06/2022) [address]16-[address]22 History of Past illness Narrative* Problem Noted Date Resolved Date Altered tissue perfusion /16/2 022 documented as of this encounter (statuses as of 05/13/2022) [address]16-[address]22 History of Past illness Narrative* Problem Noted Date Diagnosed Date Resolved Date Altered tissue perfusion documented as of this encounter (statuses as of 2022) [facility]-16-2022 History of Past illness Narrative* Problem Noted Date Diagnosed Date Resolved Date Altered tissue perfusion documented as of this encounter (statuses as of 10/29/2022) [facility]08-16-2022 Miscellaneous Notes* Telephone Encounter - Katina [...] to pharmacy. Katina Duque [facility] Miscellaneous Notes* Telephone Encounter - Van [...] and advise. Rosibel Daniel [facility] Miscellaneous Notes* Telephone Encounter - Van Olivarez APRN.CNP - 06/05/2021 4:46 PM EDT Spoke with pt regarding latest results, scr. at baseline. TAC level 8.6 prev two levels in 5 range.He believes latest level would be 12hr trough. No changes for now, if next level >7, can consider if reduction appropriate. He understands. Van Olivarez APRN.CNP [facility] Diagnosis Screening for genitourinary condition Screening for other and unspecified genitourinary condition documented in this encounter [facility]* Diagnosis Acute deep vein thrombosis (DVT) of proximal end of right lower extremity ([facility])- Primary PAD (peripheral artery disease) ([facility]) Peripheral vascular disease, unspecified Nonhealing ulcer of heel ([facility]) Anticoagulation management encounter Encounter for therapeutic drug monitoring documented in this encounter [facility] note* Diagnosis Encounter for prophylactic measures, unspecified- Primary documented in this encounter [facility] note* Diagnosis Kidney replaced by transplant- Primary documented in this encounter [facility] note* Diagnosis MRSA bacteremia- Primary Bacteremia Diabetic foot ulcer with osteomyelitis ([facility]) Type II or unspecified type diabetes mellitus with other specified manifestations, not stated as uncontrolled ILIANA (acute kidney injury) ([facility]) Acute kidney failure, unspecified documented in this encounter [facility] note* Diagnosis Kidney replaced by transplant- Primary 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 longterm current use of immunosuppressive drug documented in this encounter [facility] note* Diagnosis Hx of BKA, right ([facility])- Primary PAD (peripheral artery disease) ([facility]) Peripheral vascular disease, unspecified Mixed hyperlipidemia due to type 2 diabetes mellitus ([facility]) Type II or unspecified type diabetes mellitus with renal manifestations, uncontrolled(250.42) Type II or unspecified type diabetes mellitus with renal manifestations, uncontrolled Type 2 diabetes mellitus with diabetic neuropathy, with long-term current use of insulin (HCC) Type 2 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, with long-term current use of insulin ([facility]) Paroxysmal atrial fibrillation ([facility]) Atrial fibrillation documented in this encounter [facility] note* Diagnosis Screening for genitourinary condition Screening for other and unspecified genitourinary condition documented in this encounter [facility] note* Diagnosis Onset Date Resolution Status At high risk for skin breakdown chronic Diabetes chronic Fecal incontinence chronic Limited mobility chronic Poor appetite chronic Pressure ulcer of sacral region, unstageable chronic Candidiasis resolved [facility] Work Phone: Evaluation noteNo InformationNortGeising[facility] [employer] Other Evaluation note* Diagnosis Kidney replaced by transplant- Primary [facility] Diagnosis Type 1 diabetes mellitus with [...] COLONOSCOPY 1995,2001, 2014 Hospitalization History see above [employer] Other Progress note Author Sadia Aguilar [facility] July 20, 2022 1:48pm Note Date/Time July 20, 2022 1:48p m [facility] [address] [place] [address] Wound Center Provider Note Signed Patient: Alex Almonte MR#: [id number] : 1945 Acct:[id number] Age/Sex: 76 / M Copies to: DO Sadia Whyte APRN~ HPI Date of Visit Date of Visit: Date of Service: 07/20/2022 Time of Service: 13:46 Narrative HPI: 12/30/21 Alex is a 76 year old male presenting to [facility] wound care for aninitial visit for eval and treatment of a sacral/coccyx area pressure ulcer. He resides at [facility]. There is an PHOTOGRAPH MOUNTER present for the visit. Medicalhoney gel will [...] his brief that was cleaned by this technical report writer as well as another nursing staff [...] from initial visit here Mode of Arrival/ Foreign Exchange Services Manager: Facility vehicle Assistive Device Used Today: Wheelchair and Indra Lives with:: Care/Nursing Facility Appetite Description: Within Normal Limits Who helps w/ dressing change?: Nursing Facility Why Do You Need Help?: Can't Reach Ulcer, Limited mobility and Taxing effort to leave home Smoking Status: Former smoker [facility] Medical History (Updated 03/03/22 @ [...] <Electronically signed by DAVID Aguilar> 07/20/22 1348 [facility] Work Phone: Reason for referral (narrative)* Outpatient Procedure (Routine) - Authorized Specialty Diagnoses / Procedures Referred By Contac t Referred To Contact [facility] [place] Diagnoses PAD (peripheral artery disease) (HCC) Nonhealing ulcer of heel (HCC) Procedures US LEG ARTERIAL PERIPH UNL VAS LAB DUP-SCAN LXTR ART/ARTL BPGS UNI/LMTD STUDY No Reeder DO [address] [place] [address] [facility] [place] [address] Referral ID Status Reason Start Date Expiration Date Visits Requested Visits Authorized [id number] Authorized Auto-Generat ed Referral 11/17/2021 11/17/2022 1 1 * Outpatient Procedure (Routine) - Authorized Specialty Diagnoses / Procedures Referred By Contac t Referred To Contact [facility] Diagnoses Acute deep vein thrombosis (DVT) of proximal end of right lower extremity (HCC) Procedures US LEG VEIN DVT UNL VAS LAB DUP-SCAN XTR VEINS UNILATERAL/LIMITED STUDY No Reeder DO [address] [place] [address] [place] [address] Referral ID Status Reason Start Date Expiration Date Visits Requested Visits Authorized [id number] Authorized Auto-Generat ed Referral 11/17/2021 11/17/2022 1 1 * Consult, Test, Treat (Routine) - Authorized Specialty Diagnoses / Procedures Referred By Contac t Referred To Contact Cardiology Diagnoses PAD (peripheral artery disease) (HCC) Nonhealing ulcer of heel (HCC) Procedures CONSULT TO CARDIOLOGY OFFICE/OUTPATIENT [facility] HIGH MDM 60-74 MINUTES Savanah Marcelo MD [address] [place] [address] Referral ID Status Reason Start Date Expiration Date Visits Requested Visits Authorized [id number] Authorized PCP Requested Referral 11/17/2021 11/17/2022 1 1 [facility] Summary Purpose Family History No Family History Records Found Relationship Condition Age at Onset Recorded Date/T kartik father Aneurysm Unknown father Parkinson's disease Unknown Advance Directives No Advanced Directives Records FoundDocuments on File Type Date 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 Advance Directive(s) Latest Code Status [...] Maker Relationship: M ajority of Adult Siblings (sales representative health insurance) DNR-CCA 09/26/2021 11:56 AM 10/01/2021 2:18 PM [...] Decision Maker Relationship: Majority of Adult Siblings (sales representative health insurance) Code Status History Code Status Date Activated [...] Reason for Visit Chief Complaint Open Wound ([facility]) Reason for Visit At high [...] and content) DATE CREATED AUTHOR 02/20/2021 [facility] DATE CREATED AUTHOR AUTHOR'S ORGANIZ ATION 07/25/2022 [facility] DATE CREATED AUTHOR AUTHOR'S ORGANIZ ATION 08/16/2022 [facility] DATE CREATED AUTHOR AUTHOR'S ORGANIZ ATION 09/17/2022 [facility] DATE CREATED AUTHOR AUTHOR'S ORGANIZ ATION 01/14/2023 [facility] DATE CREATED AUTHOR AUTHOR'S ORGANLUPE ATION 03/20/2023 [facility] EPIC Source Comments (unrecognize d section and content) In the event this informatio n is protected by the Federal Confidentiality of Alcohol and Drug Abuse Patient Records regulations: The Federal rules restrict any use of the information to criminally investigate or prosecute any alcohol or drug abuse patient.[facility] the event this information is protected by the Federal Confidentiality of Alcohol and Drug Abuse Patient Records regulations: The Federal rules restrict any use of the information to criminally investigate or prosecute any alcohol or drug abuse patient.[facility] HospitalIn the event this information is protected by the Federal Confidentiality of Alcohol and Drug Abuse Patient Records regulations: The Federal rules restrict any use of the information to criminally investigate or prosecute any alcohol or drug abuse patient.[facility] HospitalIn the event this information is protected by the Federal Confidentiality of Alcohol and Drug Abuse Patient Records regulations: The Federal rules restrict any use of the information to criminally investigate or prosecute any alcohol or drug abuse patient.[facility] HospitalIn the event this information is protected by the Federal Confidentiality of Alcohol and Drug Abuse Patient Records regulations: The Federal rules restrict any use of the information to criminally investigate or prosecute any alcohol or drug abuse patient.[facility] HospitalIn the event this information is protected by the Federal Confidentiality of Alcohol and Drug Abuse Patient Records regulations: The Federal rules restrict any use of the information to criminally investigate or prosecute any alcohol or drug abuse patient.[facility] HospitalIn the event this information is protected by the Federal Confidentiality of Alcohol and Drug Abuse Patient Records regulations: The Federal rules restrict any use of the information to criminally investigate or prosecute any alcohol or drug abuse patient.[facility] HospitalIn the event this information is protected by the Federal Confidentiality of Alcohol and Drug Abuse Patient Records regulations: The Federal rules restrict any use of the information to criminally investigate or prosecute any alcohol or drug abuse patient.[facility] HospitalIn the event this information is protected by the Federal Confidentiality of Alcohol and Drug Abuse Patient Records regulations: The Federal rules restrict any use of the information to criminally investigate or prosecute any alcohol or drug abuse patient.[facility] HospitalIn the event this information is protected by the Federal Confidentiality of Alcohol and Drug Abuse Patient Records regulations: The Federal rules restrict any use of the information to criminally investigate or prosecute any alcohol or drug abuse patient.[facility] HospitalIn the event this information is protected by the Federal Confidentiality of Alcohol and Drug Abuse Patient Records regulations: The Federal rules restrict any use of the information to criminally investigate or prosecute any alcohol or drug abuse patient.[facility] HospitalIn the event this information is protected by the Federal Confidentiality of Alcohol and Drug Abuse Patient Records regulations: The Federal rules restrict any use of the information to criminally investigate or prosecute any alcohol or drug abuse patient.[facility] HospitalIn the event this information is protected by the Federal Confidentiality of Alcohol and Drug Abuse Patient Records regulations: The Federal rules restrict any use of the information to criminally investigate or prosecute any alcohol or drug abuse patient.[facility] HospitalIn the event this information is protected by the Federal Confidentiality of Alcohol and Drug Abuse Patient Records regulations: The Federal rules restrict any use of the information to criminally investigate or prosecute any alcohol or drug abuse patient.[facility] HospitalIn the event this information is protected by the Federal Confidentiality of Alcohol and Drug Abuse Patient Records regulations: The Federal rules restrict any use of the information to criminally investigate or prosecute any alcohol or drug abuse patient.[facility] HospitalIn the event this information is protected by the Federal Confidentiality of Alcohol and Drug Abuse Patient Records regulations: The Federal rules restrict any use of the information to criminally investigate or prosecute any alcohol or drug abuse patient.[facility] HospitalIn the event this information is protected by the Federal Confidentiality of Alcohol and Drug Abuse Patient Records regulations: The Federal rules restrict any use of the information to criminally investigate or prosecute any alcohol or drug abuse patient.[facility] HospitalIn the event this information is protected by the Federal Confidentiality of Alcohol and Drug Abuse Patient Records regulations: The Federal rules restrict any use of the information to criminally investigate or prosecute any alcohol or drug abuse patient.[facility] HospitalIn the event this information is protected by the Federal Confidentiality of Alcohol and Drug Abuse Patient Records regulations: The Federal rules restrict any use of the information to criminally investigate or prosecute any alcohol or drug abuse patient.[facility] HospitalIn the event this information is protected by the Federal Confidentiality of Alcohol and Drug Abuse Patient Records regulations: The Federal rules restrict any use of the information to criminally investigate or prosecute any alcohol or drug abuse patient.[facility] HospitalIn the event this information is protected by the Federal Confidentiality of Alcohol and Drug Abuse Patient Records regulations: The Federal rules restrict any use of the information to criminally investigate or prosecute any alcohol or drug abuse patient.[facility] HospitalIn the event this information is protected by the Federal Confidentiality of Alcohol and Drug Abuse Patient Records regulations: The Federal rules restrict any use of the information to criminally investigate or prosecute any alcohol or drug abuse patient.[facility] HospitalIn the event this information is protected by the Federal Confidentiality of Alcohol and Drug Abuse Patient Records regulations: The Federal rules restrict any use of the information to criminally investigate or prosecute any alcohol or drug abuse patient.[facility] HospitalIn the event this information is protected by the Federal Confidentiality of Alcohol and Drug Abuse Patient Records regulations: The Federal rules restrict any use of the information to criminally investigate or prosecute any alcohol or drug abuse patient.[facility] HospitalIn the event this information is protected by the Federal Confidentiality of Alcohol and Drug Abuse Patient Records regulations: The Federal rules restrict any use of the information to criminally investigate or prosecute any alcohol or drug abuse patient.[facility] HospitalIn the event this information is protected by the Federal Confidentiality of Alcohol and Drug Abuse Patient Records regulations: The Federal rules restrict any use of the information to criminally investigate or prosecute any alcohol or drug abuse patient.[facility] Reason for Visit (unrecogniz ed section [...] Care Teams (unrecognized sec tion and content) Site Technician Relationship Specialty Start Date End Date Devon Moreira, DO [address] [place] [address] PCP - General 05/27/00 Site Technician Relationship Specialty Start Date End Date Devon Moreira, DO [address] [place] [address] PCP - General 05/27/00 Site Technician Relationship Specialty Start Date End Date Devon Moreira, DO [address] [place] [address] PCP - General 05/27/00 Site Technician Relationship Specialty Start Date End Date Devon Moreira, DO [address] [place] [address] PCP - General 05/27/00 Site Technician Relationship Specialty Start Date End Date Devon Moreira, DO [address] [place] [address] PCP - General 05/27/00 Site Technician Relationship Specialty Start Date End Date Devon Moreira, DO [address] [place] [address] PCP - General 05/27/00 Site Technician Relationship Specialty Start Date End Date Devon Moreira, DO [address] [place] [address] PCP - General 05/27/00 Site Technician Relationship Specialty Start Date End Date Devon Moreira, DO [address] [place] [address] PCP - General 05/27/00 Site Technician Relationship Specialty Start Date End Date Devon Moreira, DO [address] [place] [address] PCP - General 05/27/00 Site Technician Relationship Specialty Start Date End Date Devon Moreira, DO [address] [place] [address] PCP - General 05/27/00 Site Technician Relationship Specialty Start Date End Date Devon Moreira, DO [address] [place] [address] PCP - General 05/27/00 Site Technician Relationship Specialty Start Date End Date Devon Moreira, DO [address] [place] [address] PCP - General 05/27/00 Site Technician Relationship Specialty Start Date End Date Devon Moreira, DO [address] [place] [address] PCP - General 05/27/00 Site Technician Relationship Specialty Start Date End Date Devon Moreira, DO [address] [place] [address] PCP - General 05/27/00 Site Technician Relationship Specialty Start Date End Date Devon Moreira, DO [address] [place] [address] PCP - General 05/27/00 Site Technician Relationship Specialty Start Date End Date Devon Moreira, DO [address] [place] [address] PCP - General 05/27/00 Site Technician Relationship Specialty Start Date End Date Devon Moreira, DO [address] [place] [address] PCP - General 05/27/00 Site Technician Relationship Specialty Start Date End Date Devon Moreira, DO [address] [place] [address] PCP - General 05/27/00 Site Technician Relationship Specialty Start Date End Date Devon Moreira DO [address] [place] [address] PCP - General 05/27/00 Team Status: Active Member Role Status Dates Devon Moreira DO Primary Care Provider Active Team Status: Inactive Member Role Status Dates Devon Moreira DO Primary Care Provider Active Sadia Aguilar APRN Attending Provider Active Site Technician Relationship Specialty Start Date End Date Devon Moreira DO [address] [place] [address] PCP - General 05/27/00 Site Technician Relationship Specialty Start Date End Date Devon Moreira DO [address] [place] [address] PCP - General 05/27/00 Site Technician Relationship Specialty Start Date End Date Ni Cabrera, [address] [facility] [address] [place] [address] PCP - ACO Reach 07/09/22 Devon Moreira MD [address] [place] [id number] PCP - General Internal Medicine 07/14/22 PRN Active and Recently Administ ered Medications (unrecognized section and content) Medication Order 01/10/2022 01/11/2022 01/12/2022 lidocaine (PF) 10 mg/mL (1 %) injection (XYLOCAINE) SUBCUTANEOUS, X (OR/PROCEDURE) PRN, Starting on Wed01/12/22 at 1032, Until Wed01/13/22 at 0303, Intraprocedure 1032 (Given - Provid er: Vani Hdz APRN.CAPTAIN/CHECK AIRMAN) Goals (unrecognized section and content) Goals may [...] BE BASED ON THE PRIMARY CLINICAL RECORDS. [facility]. provides no warranty or guarantee of the accuracy or completeness of information in this document.
[2023-04-14 08:34] LABS: Basophils Absolute Auto 0.1 10^3/uL (0.0-0.1); Basophils Percent Auto 0.7 % (0.2-2.0); Eosinophils Absolute Auto 0.3 10^3/uL (0.0-0.7); Eosinophils Percent Auto 4.6 % (0.9-7.0); Hematocrit 32.2 % (42.0-54.0); Hemoglobin 10.4 g/dL (14.0-18.0); Immature Granulocytes Abs Auto 0.01 10^3/uL (0.00-0.03); Immature Granulocytes Pct Auto 0.1 % (0.0-0.5); Lymphocytes Absolute Auto 2.3 10^3/uL (1.2-3.8); Lymphocytes Percent Auto 33.9 % (20.5-60.0); Mean Corpuscular HGB Conc 32.3 g/dL (29.9-35.2); Mean Corpuscular Hemoglobin 27.7 pg (25.9-34.0); Mean Corpuscular Volume 85.6 fL (80.0-94.0); Mean Platelet Volume 10.9 fL (9.5-13.5); Monocytes Absolute Auto 0.8 10^3/uL (0.3-0.8); Monocytes Percent Auto 11.3 % (1.7-12.0); Neutrophils Absolute Auto 3.4 10^3/uL (1.4-6.5); Neutrophils Percent Auto 49.4 % (43.0-75.0); Platelet Count 212 10^3/uL (150-450); Red Blood Count 3.76 10^6/uL (4.70-6.10); Red Cell Distribution Width 15.9 % (11.0-15.0); White Blood Count 6.8 10^3/uL (4.0-11.0)
[2023-04-14 08:53] LABS: Prothrombin Time 26.1 sec (9.0-11.6)
[2023-04-14 09:58] LABS: Alanine Aminotransferase 15 U/L (16-63); Albumin Globulin Ratio 0.8; Albumin Level 2.6 g/dL (3.4-5.0); Alkaline Phosphatase 62 U/L (46-116); Aspartate Amino Transferase 20 U/L (15-37); BUN Creatinine Ratio 30.3; Bilirubin Total 0.6 mg/dL (0.2-1.0); Carbon Dioxide 29.7 mmol/L (21.0-32.0); Chloride 103 mmol/L (98-107); Estimated GFR (African America 54 (>=60); Estimated GFR (Non-African Ame 45 (>=60); Globulin 3.3 g/dL; Glucose 190 mg/dL (74-106); Magnesium 1.9 mg/dL (1.8-2.4); Phosphorus 4.5 mg/dL (2.6-4.7); Potassium 3.7 mmol/L (3.5-5.1); Sodium 139 mmol/L (136-145); Total Protein 5.9 g/dL (6.4-8.2)
== END 2023-04-14 02:30 | disposition home or self-care (01) ==
LOC: LAB 02:29
PROVIDERS: PCP Internal Medicine; Visit Provider Internal Medicine
DX: Z51.81 Encounter for therapeutic drug level monitoring (principal); N18.9 Chronic kidney disease, unspecified; Z94.0 Kidney transplant status
CPT/HCPCS: 36415; 80053; 80197; 83735; 84100; 85025; 85610

== ENCOUNTER 2023-04-16 03:26 | Outpatient (RCR) | payer MEDICARE, OTHER, SELFPAY | END 2023-05-14 14:06 | disposition home or self-care (01) | LOC: MM 03:26 | PROVIDERS: PCP Internal Medicine; Visit Provider Internal Medicine | DX: Z51.81 Encounter for therapeutic drug level monitoring (principal); Z79.01 Long term (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 of anticoagulants; I82.409 Acute embolism and thrombosis of unspecified deep veins of unspecified lower extremity ==

== ENCOUNTER 2023-04-21 01:45 | Outpatient (REF) | payer MEDICARE, OTHER, SELFPAY ==
--- OUTSIDE RECORDS SUMMARY | 2023-04-21 01:50 | XMS_ITS | CCD ---
Author Name Unknown Address [address] [facility] [address] [place] [address] Organization [facility] Care Team Providers Care Tso Name Role Phone PROVIDER, UNKNOWN Attending Unavailable [...] CYN, DR TONYA Manzo Consulting Unavailabl e ZIEBER, DR CURRY Carmona Consulting Unavailable MATEOEREMathew, DR PROSPER Douglas Consulting Unavailable GRECHNY ., ALEJA TORRES Consulting Unavailabl e MARKER ., DR WASHINGTON Consulting Unavailable KANCHAN ., MARY ANN Consulting Unavailable BACHKARTHIK GRACE Consulting Unavailable ASHLEY GARIBAY Admitting Unavailable ASHLEY GARIBAY Attending Unavailable MARIAELENA, DR RICH Hernandez Consulting Unavailable BALL, DR OSORIO Primary Care Unavailable ASHLEY GARIBAY Consulting Unavailable LILLIE, DR OSORIO Primary Care Unavailable BRANDI BROTHERS Attending Unavailable BROTHERS, BRANDI Admitting Unavailable BROTHERS, BRANDI Consulting Unavailable BALL, DR OSORIO Consulting Unavailable BALL, DR OSORIO Attending Unavailable BALL, DR OSORIO Admitting Unavailable BALL, DR OSORIO Primary Care Unavailable LILLIE, DR OSORIO Consulting Unavailable BALL, DR OSORIO Attending Unavailable BALL, DR OSORIO Admitting Unavailable BALL, DR OSORIO Primary Care Unavailable SHAIKH Kate MURRAY Attending Unavailable SHAIKH Kate MURRAY Admitting Unavailable LILLIE, DR OSORIO Primary Care Unavailable SHAIKH Kate [...] DR OSORIO Primary Care Unavailable BALL, DR OSOIRO Consulting Unavailable BALL, DR OSORIO Attending Unavailable [...] Unavailable BALL, DR OSORIO Primary Care Unavailable WILLIAM BROOKS Attending Unavailable WILLIAM BROOKS Admitting Unavailable WILLIAM BROOKS Consulting Unavailable RICH TITUS Consulting Unavailable FAWWAD, DIAMOND H Admitting Unavailable FAWWAD, DIAMOND H Attending Unavailable BALL, DR OSORIO Primary Care Unavailable NICOLÁS Cheng, DR CENTENO Consulting Unavailable MARIAELENA, DR RICH Hernandez Consulting Unavailable KRISHNA, DR CURRY Carmona Consulting Unavailable ASHLEY GARIBAY Procedure Practitioner Unava ilable ASHLEY GARIBAY Consulting Unavailable NICOLÁS ., DR CENTENO Procedure Practitioner Unavail able MARCELINO CASTANO Consulting Unavailable NO FLORES Consulting Unavailable KANCHAN .MARY ANN Consulting Unavailable CYN SAMUEL Consulting Unavailable ALYSON ., PARAMJIT LUZ Consulting Unavailable BALLCONSTANTIN FRANCO Consulting Unavailable ANNALEE PARADA Consulting Unavailable JOAQUÍN, MISBAH Douglas Consulting Unavailable [...] Unavailable Ball, DO Osorio Primary Care Provider [phone] DAVID Aguilar Attending Provider [phone] Sadia Aguilar Attending Unavailable Jeff, Sadia Admitting Unavailable Devon Moreira Primary Care Unavailable SARTHAK PARNELL Attending Unavailable MILAGRO QUEEN Referring Unavailable MILAGRO QUEEN Referring Unavailable DEVON MOREIRA Referring Unavailable HINA PETERSON Attending Unavailable DEVON MOREIRA Primary Care Unavailable HEDERVARTUR FULLER Referring Unavailable DEVON MOREIRA Primary Care Unavailable Ni Cabrera DO Unavailable Devon Moreira MD Primary Care Provider NI CABRERA Attending Unavailable DEVON MOREIRA Referring Unavailable Allergies Allergy Classification Reported Allergen(s) Allergy Type Date of Onset Reaction(s) Facility (20 sources) Pyridostigmine; Translations: [PYRIDOSTIGMINE BROMIDE] Drug Allergy 2 GI Upset [facility] Work Phone: (1 source) ALLERGIES NOT ON FILE; Translations: [ALLERGIES NOT ON FILE] Propensity to adverse reactions (disorder) [facility] Repository (1 source) Pyridostigmine Drug Allergy 2 Nausea Only [facility] Medications Current Medications Medication Drug Class(es) Dates Sig (Normalized) Sig (Original) acetaminophen 500 mg oral tablet (14 sources) take 1 tablet by mouth every six hours Acetaminophen 500 MG 1 tablet as needed Orally every 6 hrs Active take 2 tablets by mo uth every six hours as needed for pain acetaminophen (Tylenol) 500 MG tablet Ta ke 1,000 mg by mouth every 6 (six) hours if needed for mild pain. 0 Active take 1 tablet by debi th [...] 01-05-20 cilgavimab 300 mg intramuscular injection (EVUSHELD) Continuous Blood Gluc Sensor (FreeStyle Shaan 14 Day Sensor) misc (1 source) Start: 04-06-19 Continuous Blood Gluc Sensor (FreeStyle Shaan 14 Day Sensor) misc Inject 1 each under the skin every 14 (fourteen) days. 0 04/06/2022 Active famotidine 20 mg oral tablet (3 sources) Histamine-2 Receptor Antagonist Start: 06-25-19 take 1 tablet by mouth in the morning famotidine (Pepcid) 20 MG tablet Take 20 mg by mouth in the morning. 0 06/24/2022 Active FreeStyle Shaan 14 Day Sensor - (10 sources) Start: 04-06-19 Start: 04-06-2022 Start: 04-06-2022 [...] Indications: Type 1 diabetes mellitus with nephropathy ([facility]) 3 units breakfast, 5 units [...] 10 units and notify provider [facility] [place] [place] 155-852-130 MG (6 sources) take 155-852 tablets by mouth twice daily [facility] [place] [place] 155-852-130 MG 1 tablet Orally twice daily Active take 155-852 tablets by mouth four times daily take 155-852 tablets by mouth four times daily [facility] [place] [place] 155-852-130 MG 1 tablet Orally Four times a day Active krill oil (7 sources) Krill Oil Not-Ta jn take 1 capsule by mo uth once daily in the evening krill oil 500 mg cap Take 500 mg by mout h every evening. 0 Active Comment on above: Take 500 mg by mouth every evening. latanoprost 0.05 mg/ml ophthalmic solution (20 sources) Prostaglandin Analog Start: 02-25-2022 latanoprost (Xalatan) [...] Active Start: 01-23-2019 take 1 tablet by dbei th three times weekly Sulfamethoxazole-Trimethoprim Active 1 [...] needed. docusate sodium 50 mg / sennosides, intermediate 8.6 mg oral tablet (20 sources) Start: [...] by mouth daily with lunch. [employer] [place] with lunch 7110 mL 0 12/11/2021 Active Comment on above: Take 237 mL by mouth daily with lunch. [employer] [place] with lunch polyethylene glycol 3350 12796 mg powder for oral solution (20 sources) [...] on above: TAKE 1 TABLET BY DEBI DAILY AT BEDTIME. tacrolimus 1 mg oral [...] Start: 01-23-2019 take 1 capsule by mo ut twice daily tacrolimus IR (PROGRAF) 1 mg [...] Onset: 1 09-30-2021 Chronic Chronic kidney disease (20 sources) Kidney transplant status; Translations: [End stage [...] Coronary arteriosclerosis; Translations: [Atherosclerotic heart disease of [place] coronary artery without angina pectoris] Onset: 7 [...] 9 09-07-2008 Chronic Open wounds of extremities (15 sources) Amputated left lower limb above knee; Translations: [Complete traumatic amputation at level between left hip and knee, initial encounter] Onset: 3 Chronic Open wounds of extremities (14 sources) Amputated right lower limb above knee; [...] current use of immunosuppressive drug; Translations: [Other snf (current) drug therapy] Episodic Other aftercare (13 sources) Long-term current use of insulin; Translations: [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 shooter (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 of insulin] Episodic Other aftercare (10 sources) FPC (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 of insulin; Translations: [SNF CURRENT USE OF INSULIN] Onset: 2 Episodic Other aftercare (5 sources) torpedo shooter (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 of anticoagulants; Translations: [SNF CURRNT USE ANTICOAGULANTS] Onset: 3 Episodic Other aftercare (5 sources) Encounter for therapeutic drug level monitoring; Translations: [ENC THERAPEUTC DRUG LEVL MONITORING] Onset: 3 Episodic Other bone disease and musculoskeletal deformities (1 source) History of amputation of right leg through tibia and fibula; Translations: [Acquired absence of right leg below knee] Chronic Other bone disease and musculoskeletal deformities (14 sources) Acquired absence of left leg below [...] LEG ABOVE KNEE] Onset: 2 Chronic Other bone disease and musculoskeletal deformities (1 source) Acquired absence of unspecified leg above knee Chronic Other endocrine disorders (1 source) Adrenal cortical hypofunction; Translations: [Unspecified adrenocortical insufficiency] Onset: 3 10-08-2022 Chronic Other gastrointestinal disorders (1 source) Incontinence of feces; Translations: [Full incontinence of feces] 01-20-2022 Episodic Other gastrointestinal disorders (1 source) Full incontinence of feces; Translations: [Full incontinence of feces] 07-20-2022 Episodic Other nervous system disorders (6 sources) Phantom pain following amputation of lower [...] 07-30-2006 Episodic Other aftercare (2 sources) Other mechanical car checker (current) drug therapy; Translations: [OTH SNF CURRENT DRUG THERAPY] Onset: 02-05-2022 Episodic Other aftercare (4 sources) Encounter for orthopedic aftercare following surgical amputation; Translations: [ENC ORTHOPED AFTERCARE FLW SURG AMP] Onset: 02-05-2022 Episodic Other aftercare (4 sources) FPC (current) use of antibiotics; Translations: [WILDLIFE CONSERVATIONIST CURRENT USE ANTIBIOTICS] Onset: 12-20-2021 Episodic Other aftercare (1 source) torpedo shooter (current) use of aspirin; Translations: [SNF CURRENT USE OF ASPIRIN] Onset: 01-19-2022 Episodic [...] Interpretation and review of laboratory results Normal [facility] POCT glycosylated hemoglobin (Hb A1C) docked deviceon 03-18-2023 HbA1c (Bld) [Mass fraction] 7.8 % [facility] Sonya 12-25-2022 [place] Telephone (TXCTGL) ALEX ALMONTE ([id number]) 1945 M Date Time Provider Department 12/25/22 KIDNEY TXP COORDINATORS TXCTGL During your visit today, we recorded the following information about you: Duane Ryan 12/25/2022 10:41 AM Signed Labs 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 Administrative Car Starter Allergies As of Date: 12/25/2022 Noted Allergy [...] by mouth daily with lunch. 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 DIABETES UNCOMPL ADULT-UNCONTRLLED [HOX0407] 02/24/2002 KIDNEY TRANSPLANT STATUS [Z94.0] 09/07/2003 PROPHYLACTIC IMMUNOTHERAPY [Z29.89] 07/30/2006 WILDLIFE CONSERVATIONIST STEROIDS [FNK1890] 07/30/2006 VITAMIN D DEFICIENCY NOS [E55.9] 09/07/2008 [...] diabetes mellitus with diabetic peripher*11/29/2021 Atherosclerosis of [place] artery of extremity w*11/29/2021 Malnutrition of moderate degree (HCC) [E44.0] 12/01/2021 Dermatitis associated with moisture [L30.8] 12/04/2021 Encounter Status:Closed [facility] ([id number]) 1945 M Date Time Provider Department 11/11/22 [...] by mouth daily with lunch. [employer] [place] with lunch aspirin, enteric coated (ASPIRIN, ENTERIC [...] 0. (more content not included)... Normal [facility] Office Visiton 09-09-2022 Follow-up visit [id number] Alex Almonte 1945 M Date Provider Department Center 09/09/2022 1596-SARTHAK PARNELL CARD Rupal Hos Family History Problem Relation Age of Onset Cancer Mother Aneurysm Father Cancer Father Parkinsonism Father Family Status - Relation Status Age at Mother Father Level of Service:00006 CT OFFICE/OUTPATIENT ESTABLISHED MOD MDM 30-39 MIN Normal [facility] Glucose Poct Glucometerson 0 07-20-2022 Commemt1 Glu2: Cleaned Meter Normal [facility] Comment on above: Result Comment: PERF ORMED BY: [facility] [address] [place] [address] PATHOLOGIST NET TRAINER JOSE F ELLIOTT M.D. Performed By: #### G MADY #### Point of Care testing , Glucose [Mass/Vol] 176 mg/dL Normal [facility] Comment on above: Result Comment: [facility] Glucose Reference Range is dependent on time and content of last meal. Glucose of more than 200 mg/dL in a nonstressed, ambulatory subject supports the diagnosis of Diabetes Mellitus. Performed By: #### G LULS #### Point of Care testing , FK506 (TACROLIMUS) WHOLE BLO ODon 07-12-2022 Tacrolimus (FK506), Blood 10.9 ng/mL Normal 2.0-20.0 [facility] Comment on above: Result Comment: Trou gh (immediately following transplant) 15.0 . Trough (steady state, 2 weeks or more after transplant): 3.0 - 8.0 . Performed by LC-MS/MS technology. Performed By: #### F K506T ####[facility] [address] [place], [place] [address]Dr. Farhat Leal CBC AUTO DIFFon 07-10-2022 BASO # 0.0 103/ul Normal 0.0-0.1 [facility] Comment on above: Performed By: #### C BC ####[facility] [address] [place], [place] [address]Dr. Farhat Leal Basophils/100 WBC (Bld) 0.5 % Normal 0.2-2.0 [facility] Comment on above: Performed By: #### C BC ####[facility] [address] [place], [place] [address]Dr. Farhat Leal EO # 0.3 103/ul Normal 0.0-0.7 [facility] Comment on above: Performed By: #### C BC ####[facility] [address] [place], [place] [address]Dr. Farhat Leal Eosinophils/100 WBC (Bld) 4.9 % Normal 0.9-7.0 [facility] Comment on above: Performed By: #### C BC ####[facility] [address] [place], [place] [address]Dr. Farhat Leal Erythrocyte distribution width (RBC) [Ratio] 13.8 % Normal 11.0-15.0 [facility] Comment on above: Performed By: #### C BC ####[facility] [address] [place], [place] [address]Dr. Farhat Leal Hematocrit (Bld) [Volume fraction] 36.6 % Critically low 42.0-54.0 [facility] Comment on above: Performed By: #### C BC ####[facility] [address] [place] [phone]. Farhat Leal Hemoglobin (Bld) [Mass/Vol] 12.2 g/dL Critically low 14.0-18.0 [facility] Comment on above: Performed By: #### C BC ####[facility] [address] [place] [phone]. Farhat Leal IG # 0.01 10e3/ul Normal 0.00-0.03 [facility] Comment on above: Performed By: #### C BC ####[facility] [address] [place] [phone]. Farhat Leal IG % 0.2 % Normal 0.0-0.5 [facility] Comment on above: Performed By: #### C BC ####[facility] [address] [place] [address]Dr. Farhat Leal LYMPH # 2.2 103/ul Normal 1.2-3.8 [facility] Comment on above: Performed By: #### C BC ####[facility] [address] [place] [phone]. Farhat Leal Lymphocytes/100 WBC (Bld) 33.9 % Normal 20.5-60.0 [facility] Comment on above: Performed By: #### C BC ####[facility] [address] [place] [phone]. Farhat Leal MANUAL DIFF REQ NO Normal [facility] Comment on above: Performed By: #### C BC ####[facility] [address] [place] [phone]. Farhat Leal MCH (RBC) [Entitic mass] 31.0 pg Normal 25.9-34.0 [facility] Comment on above: Performed By: #### C BC ####[facility] [address] [place] [phone]. Farhat Leal MCHC (RBC) [Mass/Vol] 33.3 g/dL Normal 29.9-35.2 [facility] Comment on above: Performed By: #### C BC ####[facility] [address] [place] [phone]. Farhat Leal MCV (RBC) [Entitic vol] 93.1 fL Normal 80.0-94.0 [facility] Comment on above: Performed By: #### C BC ####[facility] [address] [place] [phone]. Farhat Leal MONO # 0.7 103/ul Normal 0.3-0.8 [facility] Comment on above: Performed By: #### C BC ####[facility] [address] [place] [phone]. Farhat Leal Monocytes/100 WBC (Bld) 10.8 % Normal 1.7-12.0 [facility] Comment on above: Performed By: #### C BC ####[facility] [address] [place], [place] [id number]. Farhat Leal NEUT # 3.2 103/ul Normal 1.4-6.5 [facility] Comment on above: Performed By: #### C BC ####[facility] [address] [place] [phone]. Farhat Leal Neutrophils/100 WBC (Bld) 49.7 % Normal 43.0-75.0 [facility] Comment on above: Performed By: #### C BC ####[facility] [address] [place] [phone]. Farhat Leal Platelet mean volume (Bld) [Entitic vol] 10.9 fL Normal 9.5-13.5 [facility] Comment on above: Performed By: #### C BC ####[facility] [address] [place] [phone]. Farhat Leal PLT 195 103/ul Normal 150-450 [facility] Comment on above: Performed By: #### C BC ####[facility] [address] [place] [phone]. Farhat Leal RBC 3.93 106/ul Critically low 4.70-6.10 [facility] Comment on above: Performed By: #### C BC ####[facility] [address] [place] [address]Dr. Farhat Leal WBC 6.4 103/ul Normal 4.0-11.0 [facility] Comment on above: Performed By: #### C BC ####[facility] [address] [place] [address]Dr. Farhat Leal MAGNESIUMon 07-10-2022 Magnesium [Mass/Vol] 1.9 mg/dL Normal 1.8-2.4 [facility] Comment on above: Performed By: #### M G PHOS ####[facility] [address] [place] [address]Dr. Farhat Leal PHOSPHORUSon 07-10-2022 Phosphate [Mass/Vol] 4.7 mg/dL Normal 2.6-4.7 [facility] Comment on above: Performed By: #### Demetrice Manzo PHOS ####[facility] [address] [place], [place] [address]Dr. Farhat Leal PROF 14(COMP METB)on 023 Albumin [Mass/Vol] 2.7 g/dL Critically low 3.4-5.0 [facility] Comment on above: Performed By: #### C MP ####[facility] [address] [place], [place] [address]Dr. Farhat Leal Albumin/Globulin [Mass ratio] 0.8 {ratio} Normal [facility] Comment on above: Performed By: #### C MP ####[facility] [address] [place] [address]Dr. Farhat Leal ALP [Catalytic activity/Vol] 59 U/L Normal 46-116 [facility] Comment on above: Performed By: #### C MP ####[facility] [address] [place], [place] [address]Dr. Farhat Leal ALT [Catalytic activity/Vol] 16 U/L Normal 16-63 [facility] Comment on above: Performed By: #### C MP ####[facility] [address] [place], [place] [address]Dr. Farhat Leal Anion gap [Moles/Vol] 12.3 mmol/L Normal [facility] Comment on above: Performed By: #### C MP ####[facility] [address] [place] [address]Dr. Farhat Elvis AST [Catalytic activity/Vol] 17 U/L Normal 15-37 [facility] Comment on above: Performed By: #### C MP ####[facility] [address] [place], [place] [address]Dr. Farhat Leal Bilirubin [Mass/Vol] 0.5 mg/dL Normal 0.2-1.0 [facility] Comment on above: Performed By: #### C MP ####[facility] [address] [place], [place] [address]Dr. Farhat Leal Calcium [Mass/Vol] 8.5 mg/dL Normal 8.5-10.1 [facility] Comment on above: Performed By: #### C MP ####[facility] [address] [place], [place] [address]Dr. Farhat Leal Chloride [Moles/Vol] 104 mmol/L Normal 98-107 [facility] Comment on above: Performed By: #### C MP ####[facility] [address] [place], [place] [address]Dr. Farhat Leal CO2 [Moles/Vol] 27.6 mmol/L Normal 21.0-32.0 [facility] Comment on above: Performed By: #### C MP ####[facility] [address] [place], [place] [address]Dr. Farhat Leal Creatinine [Mass/Vol] 1.79 mg/dL Critically high 0.70-1.30 [facility] Comment on above: Performed By: #### C MP ####[facility] [address] [place], [place] [address]Dr. Farhat Leal EGFR-AF MONTENEGRIN 45 mL/min/1.73m2 Critically low >=60 [facility] Comment on above: Performed By: #### C MP ####[facility] [address]fr[address] [place], [place] [address]Dr. Farhat Leal EGFR-NON AF MONTENEGRIN 37 mL/min/1.73m2 Critically low >=60 [facility] Comment on above: Performed By: #### C MP ####[facility] [address] [place] [address]Dr. Farhat Leal Globulin (S) [Mass/Vol] 3.2 g/dL Normal [facility] Comment on above: Performed By: #### C MP ####[facility] [address] [place] [address]Dr. Farhat Elvis Glucose [Mass/Vol] 203 mg/dL Critically high 74-106 [facility] Comment on above: Performed By: #### C MP ####[facility] [address] [place] [address]Dr. Farhat Leal Potassium [Moles/Vol] 3.9 mmol/L Normal 3.5-5.1 [facility] Comment on above: Performed By: #### C MP ####[facility] [address] [place], [place] [address]Dr. Farhat Elvis Protein [Mass/Vol] 5.9 g/dL Critically low 6.4-8.2 [facility] Comment on above: Performed By: #### C MP ####[facility] [address] [place], [place] [address]Dr. Farhat Elvis Sodium [Moles/Vol] 140 mmol/L Normal 136-145 [facility] Comment on above: Performed By: #### C MP ####[facility] [address] [place], [place] [address]Dr. Farhat Elvis Urea nitrogen [Mass/Vol] 61.0 mg/dL Critically high 7.0-18.0 [facility] Comment on above: Performed By: #### C MP ####[facility] [address] [place], [place] [address]Dr. Farhat Leal Urea nitrogen/Creatinine [Mass ratio] 34.1 mg/mg Normal [facility] Comment on above: Performed By: #### C MP ####[facility] [address] [place], [place] [address]Dr. Farhat Leal PROTIMEon 07-10-2022 INR Coag (PPP) [Relative time] 2.95 {INR} Normal [facility] Comment on above: Performed By: #### P T ####[facility] [address] [place], [place] [address]Dr. Farhat Leal INR GUIDELINES SEE BELOW Normal [facility] Comment on above: Result Comment: MALINA RED INR: 2.0 - 3.0 CONDITIONS NOT LISTED BELOW 2.5 - 3.5 FOR PROSTHETIC HEART VALVE REPLACEMENT 2.5 - 3.5 RECURRENT THROMBOSIS Performed By: #### P T ####[facility] Qt[address]bi[address] [place], [place] [address]Dr. Farhat Leal PT Coag (PPP) [Time] 29.4 s Critically high 9.0-11.6 [facility] Comment on above: Performed By: #### P T ####[facility] [address] [place], [place] [address]Dr. Farhat Leal FK506 (TACROLIMUS) WHOLE BLO ODon 07-07-2022 Tacrolimus (FK506), Blood 8.3 ng/mL Normal 2.0-20.0 [facility] Comment on above: Result Comment: Trou gh (immediately following transplant) 15.0 . Trough (steady state, 2 weeks or more after transplant): 3.0 - 8.0 . Performed by LC-MS/MS technology. Performed By: #### F K506T ####[facility] [address] [place], [place] [address]Dr. Farhat Leal CBC AUTO DIFFon 07-03-2022 BASO # 0.0 103/ul Normal 0.0-0.1 [facility] Comment on above: Performed By: #### C BC ####[facility] [address] [place], [place] [address]DrSkylar Leal Basophils/100 WBC (Bld) 0.6 % Normal 0.2-2.0 [facility] Comment on above: Performed By: #### C BC ####[facility] [address] [place], [place] [address]Dr. Farhat Leal EO # 0.3 103/ul Normal 0.0-0.7 [facility] Comment on above: Performed By: #### C BC ####[facility] [address] [place] [phone]. Farhat Leal Eosinophils/100 WBC (Bld) 4.1 % Normal 0.9-7.0 [facility] Comment on above: Performed By: #### C BC ####[facility] K[address]uzadld[address] [place] [address]Dr. Farhat Leal Erythrocyte distribution width (RBC) [Ratio] 14.0 % Normal 11.0-15.0 [facility] Comment on above: Performed By: #### C BC ####[facility] Yfnjmikyix16[address] [place] [address]Dr. Farhat Leal Hematocrit (Bld) [Volume fraction] 35.9 % Critically low 42.0-54.0 [facility] Comment on above: Performed By: #### C BC ####[facility] Updbmiizyv[address] [place], [place] [address]Dr. Farhat Leal Hemoglobin (Bld) [Mass/Vol] 12.0 g/dL Critically low 14.0-18.0 [facility] Comment on above: Performed By: #### C BC ####[facility] Yzltgensoi[address] [place], [place] [address]Dr. Farhat Leal IG # 0.04 10e3/ul Critically high 0.00-0.03 [facility] Comment on above: Performed By: #### C BC ####[facility] Axffzjhquy8[address] [place] [address]Dr. Farhat Leal IG % 0.6 % Critically high 0.0-0.5 [facility] Comment on above: Performed By: #### C BC ####[facility] Tpsmmaxrji[address] [place], [place] [address]Dr. Farhat Leal LYMPH # 1.5 103/ul Normal 1.2-3.8 [facility] Comment on above: Performed By: #### C BC ####[facility] Ghwqsgbtxo50[address] [place] [address]Dr. Farhat Leal Lymphocytes/100 WBC (Bld) 21.5 % Normal 20.5-60.0 [facility] Comment on above: Performed By: #### C BC ####[facility] Ccnswxlbim[address] [place] [address]Dr. Farhat Leal MANUAL DIFF REQ NO Normal [facility] Comment on above: Performed By: #### C BC ####[facility] Gjbegwybhu[address] [place] [phone]. Farhat Leal MCH (RBC) [Entitic mass] 30.8 pg Normal 25.9-34.0 [facility] Comment on above: Performed By: #### C BC ####[facility] Lwpskcgytq67[address] [place] [address]Dr. Farhat Leal MCHC (RBC) [Mass/Vol] 33.4 g/dL Normal 29.9-35.2 [facility] Comment on above: Performed By: #### C BC ####[facility] Ldlxbfyxhl[address] [place], [place] [address]Dr. Farhat Leal MCV (RBC) [Entitic vol] 92.1 fL Normal 80.0-94.0 [facility] Comment on above: Performed By: #### C BC ####[facility] Sywnapzbec[address] [place], [place] [address]Dr. Farhat Leal MONO # 0.6 103/ul Normal 0.3-0.8 [facility] Comment on above: Performed By: #### C BC ####[facility] Tplxdomyss92[address] [place] [address]Dr. Farhat Leal Monocytes/100 WBC (Bld) 8.7 % Normal 1.7-12.0 [facility] Comment on above: Performed By: #### C BC ####[facility] Zwdilnawlj[address] [place], [place] [address]Dr. Farhat Leal NEUT # 4.4 103/ul Normal 1.4-6.5 [facility] Comment on above: Performed By: #### C BC ####[facility] Rlskvipnzo[address] [place], [place] [address]Dr. Farhat Leal Neutrophils/100 WBC (Bld) 64.5 % Normal 43.0-75.0 [facility] Comment on above: Performed By: #### C BC ####[facility] Yaeokpsczt7[address] [place] [phone]. Farhat Leal Platelet mean volume (Bld) [Entitic vol] 10.1 fL Normal 9.5-13.5 [facility] Comment on above: Performed By: #### C BC ####[facility] Atubvpkbww58[address] [place] [phone]. Farhat Leal PLT 177 103/ul Normal 150-450 [facility] Comment on above: Performed By: #### C BC ####[facility] Afklgqorhc05[address] [place] [phone]. Farhat Leal RBC 3.90 106/ul Critically low 4.70-6.10 [facility] Comment on above: Performed By: #### C BC ####[facility] Dkrvaohcsm7[address] [place] [address]Dr. Farhat Leal WBC 6.8 103/ul Normal 4.0-11.0 [facility] Comment on above: Performed By: #### C BC ####[facility] Jscgrzkzhq2[address] [place] [phone] Leal PROF 14(COMP METB)on 023 Albumin [Mass/Vol] 2.8 g/dL Critically low 3.4-5.0 [facility] Comment on above: Performed By: #### C MP ####[facility] Jrbvksuwlg3683 [place] [address]DrSkylar Leal Albumin/Globulin [Mass ratio] 0.8 {ratio} Normal [facility] Comment on above: Performed By: #### C MP ####[facility] Nymefaqxrl87[address] [place] [phone] Leal ALP [Catalytic activity/Vol] 68 U/L Normal 46-116 [facility] Comment on above: Performed By: #### C MP ####[facility] Gfcxkhhsvo1498 [place] [address]DrSkylar Leal ALT [Catalytic activity/Vol] 20 U/L Normal 16-63 [facility] Comment on above: Performed By: #### C MP ####[facility] Oxgujmhkqq5723 [place] [phone]. Farhat Leal Anion gap [Moles/Vol] 11.1 mmol/L Normal [facility] Comment on above: Performed By: #### C MP ####[facility] Kfpzfscgnu6807 [place] [phone]. Farhat Leal AST [Catalytic activity/Vol] 22 U/L Normal 15-37 [facility] Comment on above: Performed By: #### C MP ####[facility] Neyugmhljx55[address] [place] [phone]. Farhat Elvis Bilirubin [Mass/Vol] 0.4 mg/dL Normal 0.2-1.0 [facility] Comment on above: Performed By: #### C MP ####[facility] Miskfhxtxo[address] [place], [place] [address]Dr. Madelynlorri Leal Calcium [Mass/Vol] 8.5 mg/dL Normal 8.5-10.1 [facility] Comment on above: Performed By: #### C MP ####[facility] Ckgzurxjnd[address] [place], [place] [address]Dr. Farhat Elvis Chloride [Moles/Vol] 106 mmol/L Normal 98-107 [facility] Comment on above: Performed By: #### C MP ####[facility] Ifldpizgeo4403 [place] [address]Dr. Farhat Elvis CO2 [Moles/Vol] 29.1 mmol/L Normal 21.0-32.0 [facility] Comment on above: Performed By: #### C MP ####[facility] Pocwlmkrnb17[address] [place] [address]Dr. Farhat Elvis Creatinine [Mass/Vol] 1.70 mg/dL Critically high 0.70-1.30 [facility] Comment on above: Performed By: #### C MP ####[facility] Fpszqipumd05[address] [place] [address]Dr. Madelynlorri Elvis EGFR-AF MONTENEGRIN 48 mL/min/1.73m2 Critically low >=60 [facility] Comment on above: Performed By: #### C MP ####[facility] Gigmxavjgs5406 [place] [phone]. Farhat Leal EGFR-NON AF MONTENEGRIN 39 mL/min/1.73m2 Critically low >=60 [facility] Comment on above: Performed By: #### C MP ####[facility] Hyfztzdscg29[address] [place] [phone]. Farhat Leal Globulin (S) [Mass/Vol] 3.6 g/dL Normal [facility] Comment on above: Performed By: #### C MP ####[facility] Vqecbaqblf220[address] [place] [phone]. Farhat Leal Glucose [Mass/Vol] 312 mg/dL Critically high 74-106 [facility] Comment on above: Performed By: #### C MP ####[facility] Cndxjjzjbt13[address] [place] [phone]. Farhat Elvis Potassium [Moles/Vol] 4.2 mmol/L Normal 3.5-5.1 [facility] Comment on above: Performed By: #### C MP ####[facility] Vbgxbowrok58[address] [place] [phone]. Farhat Leal Protein [Mass/Vol] 6.4 g/dL Normal 6.4-8.2 [facility] Comment on above: Performed By: #### C MP ####[facility] Kbatnstbjy48[address] [place] [phone]. Farhat Leal Sodium [Moles/Vol] 142 mmol/L Normal 136-145 [facility] Comment on above: Performed By: #### C MP ####[facility] Fynilypphw6643 [place] [phone]. Farhat Leal Urea nitrogen [Mass/Vol] 49.0 mg/dL Critically high 7.0-18.0 [facility] Comment on above: Performed By: #### C MP ####[facility] Xcsyrldlwc9943 [place] [phone]. Farhat Elvis Urea nitrogen/Creatinine [Mass ratio] 28.8 mg/mg Normal [facility] Comment on above: Performed By: #### C MP ####[facility] Xsnhigugdf63[address] [place], [place] [address]Dr. Farhat Leal PROTIMEon 07-03-2022 INR Coag (PPP) [Relative time] 2.23 {INR} Normal [facility] Comment on above: Performed By: #### P T ####[facility] Yihkevisxo5264[address] [place], [place] [address]Dr. Farhat Leal INR GUIDELINES SEE BELOW Normal [facility] Comment on above: Result Comment: MALINA RED INR: 2.0 - 3.0 CONDITIONS NOT LISTED BELOW 2.5 - 3.5 FOR PROSTHETIC HEART VALVE REPLACEMENT 2.5 - 3.5 RECURRENT THROMBOSIS Performed By: #### P T ####[facility] Ycvubedmqn264[address] [place], [place] [address]Dr. Farhat Leal PT Coag (PPP) [Time] 22.6 s Critically high 9.0-11.6 [facility] Comment on above: Performed By: #### P T ####[facility] Jnugtznezp[address] [place], [place] [address]Dr. Farhat Leal FK506 (TACROLIMUS) WHOLE BLO ODon 06-29-2022 Tacrolimus (FK506), Blood 12.2 ng/mL Normal 2.0-20.0 [facility] Comment on above: Result Comment: Trou gh (immediately following transplant) 15.0 . Trough (steady state, 2 weeks or more after transplant): 3.0 - 8.0 . Performed by LC-MS/MS technology. Performed By: #### F K506T ####[facility] Dnasukeare8[address] [place], [place] [address]DrSkylar Leal CBC AUTO DIFFon 06-26-2022 BASO # 0.0 103/ul Normal 0.0-0.1 [facility] Comment on above: Performed By: #### C BC ####[facility] Psealgdaqz9[address] [place], [place] [address]DrSkylar Leal Basophils/100 WBC (Bld) 0.5 % Normal 0.2-2.0 [facility] Comment on above: Performed By: #### C BC ####[facility] Kvqfdzakvz50[address] [place] [phone]. Farhat Leal EO # 0.3 103/ul Normal 0.0-0.7 [facility] Comment on above: Performed By: #### C BC ####[facility] Vywgwtcsiv0339 [place] [address]Dr. Farhat Leal Eosinophils/100 WBC (Bld) 4.3 % Normal 0.9-7.0 [facility] Comment on above: Performed By: #### C BC ####[facility] Fnnqmnfdnu[address] [place], [place] [address]Dr. Farhat Leal Erythrocyte distribution width (RBC) [Ratio] 14.1 % Normal 11.0-15.0 [facility] Comment on above: Performed By: #### C BC ####[facility] Cgflfzfdlp[address] [place], [place] [address]Dr. Farhat Leal Hematocrit (Bld) [Volume fraction] 35.4 % Critically low 42.0-54.0 [facility] Comment on above: Performed By: #### C BC ####[facility] Ifcenhgfjo655[address] [place], [place] [address]Dr. Farhat Leal Hemoglobin (Bld) [Mass/Vol] 11.8 g/dL Critically low 14.0-18.0 [facility] Comment on above: Performed By: #### C BC ####[facility] Gjeepgykqb[address] [place], [place] [address]Dr. Farhat Leal IG # 0.02 10e3/ul Normal 0.00-0.03 [facility] Comment on above: Performed By: #### C BC ####[facility] Kimergmwsu67[address] [place] [address]Dr. Farhat Leal IG % 0.3 % Normal 0.0-0.5 [facility] Comment on above: Performed By: #### C BC ####[facility] Sbkkddzlmx[address] [place], [place] [address]Dr. Farhat Leal LYMPH # 2.4 103/ul Normal 1.2-3.8 [facility] Comment on above: Performed By: #### C BC ####[facility] Xenxypmstd5601 [place] [phone]. Farhat Leal Lymphocytes/100 WBC (Bld) 40.4 % Normal 20.5-60.0 [facility] Comment on above: Performed By: #### C BC ####[facility] Dkwazadotj030[address] [place] [phone]. Farhat Elvis MANUAL DIFF REQ NO Normal [facility] Comment on above: Performed By: #### C BC ####[facility] Lptbgvecqu34[address] [place] [phone]. Farhat Elvis MCH (RBC) [Entitic mass] 31.0 pg Normal 25.9-34.0 [facility] Comment on above: Performed By: #### C BC ####[facility] Rxlrkwdwnt6060 [place] [phone]. Farhat Elvis MCHC (RBC) [Mass/Vol] 33.3 g/dL Normal 29.9-35.2 [facility] Comment on above: Performed By: #### C BC ####[facility] Kifawprltq5[address] [place] [phone]. Farhat Elvis MCV (RBC) [Entitic vol] 92.9 fL Normal 80.0-94.0 [facility] Comment on above: Performed By: #### C BC ####[facility] Kucneyvoir57[address] [place] [phone]. Madelynlorri Elvis MONO # 0.7 103/ul Normal 0.3-0.8 [facility] Comment on above: Performed By: #### C BC ####[facility] Ohyrvgnhwp3345 [place] [phone]. Madelynlorri Leal Monocytes/100 WBC (Bld) 11.1 % Normal 1.7-12.0 [facility] Comment on above: Performed By: #### C BC ####[facility] Fwuivrpatb[address] [place], [place] [address]Dr. Farhat Leal NEUT # 2.6 103/ul Normal 1.4-6.5 [facility] Comment on above: Performed By: #### C BC ####[facility] Iqbfsewwud9200 [place] [phone]. Farhat Leal Neutrophils/100 WBC (Bld) 43.4 % Normal 43.0-75.0 [facility] Comment on above: Performed By: #### C BC ####[facility] Slsogrincv0366 [place] [phone]. Farhat Leal Platelet mean volume (Bld) [Entitic vol] 10.4 fL Normal 9.5-13.5 [facility] Comment on above: Performed By: #### C BC ####[facility] Vnzysdnfzs88[address] [place] [phone]. Farhat Elvis PLT 211 103/ul Normal 150-450 [facility] Comment on above: Performed By: #### C BC ####[facility] Psfgvedqnq24[address] [place] [phone]. Farhat Leal RBC 3.81 106/ul Critically low 4.70-6.10 [facility] Comment on above: Performed By: #### C BC ####[facility] Ownrrwlvka05[address] [place] [phone]. Farhat Leal WBC 6.0 103/ul Normal 4.0-11.0 [facility] Comment on above: Performed By: #### C BC ####[facility] Pzqckapiwh18[address] [place] [phone]. Farhat Leal PROF 14(COMP METB)on 023 Albumin [Mass/Vol] 2.6 g/dL Critically low 3.4-5.0 [facility] Comment on above: Performed By: #### C MP ####[facility] Ukyqhkknmr57[address] [place] [phone]. Farhat Leal Albumin/Globulin [Mass ratio] 0.8 {ratio} Normal [facility] Comment on above: Performed By: #### C MP ####[facility] Ywcrmxprar2912 [place] [phone]. Farhat Elvis ALP [Catalytic activity/Vol] 64 U/L Normal 46-116 [facility] Comment on above: Performed By: #### C MP ####[facility] Vwsubbbnll2177 [place], [place] [address]Wk. Farhat Leal ALT [Catalytic activity/Vol] 18 U/L Normal 16-63 [facility] Comment on above: Performed By: #### C MP ####[facility] Wmdrpfvuox9119 [place], [place] [address]Is. Farhat Leal Anion gap [Moles/Vol] 10.2 mmol/L Normal [facility] Comment on above: Performed By: #### C MP ####[facility] Iaqecazeno4323 [place] [phone]. Farhat Leal AST [Catalytic activity/Vol] 16 U/L Normal 15-37 [facility] Comment on above: Performed By: #### C MP ####[facility] Zejvdmqfxt7514 [place] [phone]. Farhat Leal Bilirubin [Mass/Vol] 0.6 mg/dL Normal 0.2-1.0 [facility] Comment on above: Performed By: #### C MP ####[facility] Djhmhvrcng0311 [place] [phone]. Farhat Leal Calcium [Mass/Vol] 8.5 mg/dL Normal 8.5-10.1 [facility] Comment on above: Performed By: #### C MP ####[facility] Yxpjlamdxi1985 [place] [phone]. Farhat Leal Chloride [Moles/Vol] 106 mmol/L Normal 98-107 [facility] Comment on above: Performed By: #### C MP ####[facility] Xfwtphrtti4188 [place] [phone]. Farhat Leal CO2 [Moles/Vol] 29.8 mmol/L Normal 21.0-32.0 [facility] Comment on above: Performed By: #### C MP ####[facility] Qidyccdocv8337 [place] [phone]. Farhat Leal Creatinine [Mass/Vol] 1.60 mg/dL Critically high 0.70-1.30 [facility] Comment on above: Performed By: #### C MP ####[facility] Cojsmamowb3072 [place], [place] [address]Cs. Farhat Leal EGFR-AF MONTENEGRIN 51 mL/min/1.73m2 Critically low >=60 [facility] Comment on above: Performed By: #### C MP ####[facility] Jnqmmxvrtm44[address] [place] [phone]. Farhat Leal EGFR-NON AF MONTENEGRIN 42 mL/min/1.73m2 Critically low >=60 [facility] Comment on above: Performed By: #### C MP ####[facility] Hllbbtcpni2884 [place] [phone]. Farhat Leal Globulin (S) [Mass/Vol] 3.4 g/dL Normal [facility] Comment on above: Performed By: #### C MP ####[facility] Ccrbmfesjp7292 [place] [phone]. Farhat Leal Glucose [Mass/Vol] 178 mg/dL Critically high 74-106 [facility] Comment on above: Performed By: #### C MP ####[facility] Yfieemvryu5[address] [place] [phone]. Farhat Leal Potassium [Moles/Vol] 4.0 mmol/L Normal 3.5-5.1 [facility] Comment on above: Performed By: #### C MP ####[facility] Zbqzlvwtlo5085 [place] [phone]. Farhat Leal Protein [Mass/Vol] 6.0 g/dL Critically low 6.4-8.2 [facility] Comment on above: Performed By: #### C MP ####[facility] Jvmraipqpq7815 [place] [phone]. Farhat Leal Sodium [Moles/Vol] 142 mmol/L Normal 136-145 [facility] Comment on above: Performed By: #### C MP ####[facility] Hwtblpubzv1162 [place] [phone]. Farhat Leal Urea nitrogen [Mass/Vol] 49.0 mg/dL Critically high 7.0-18.0 [facility] Comment on above: Performed By: #### C MP ####[facility] Kezzmztmqi5[address] [place] [address]Dr. Farhat Leal Urea nitrogen/Creatinine [Mass ratio] 30.6 mg/mg Normal [facility] Comment on above: Performed By: #### C MP ####[facility] Syfkhpqtry7089 [place] [address]Dr. Farhat Leal PROTIMEon 06-26-2022 INR Coag (PPP) [Relative time] 1.77 {INR} Normal [facility] Comment on above: Performed By: #### P T ####[facility] Faypnflcqf214[address] [place], [place] [address]Dr. Farhat Leal INR GUIDELINES SEE BELOW Normal [facility] Comment on above: Result Comment: MALINA RED INR: 2.0 - 3.0 CONDITIONS NOT LISTED BELOW 2.5 - 3.5 FOR PROSTHETIC HEART VALVE REPLACEMENT 2.5 - 3.5 RECURRENT THROMBOSIS Performed By: #### P T ####[facility] Qdfdgylpvp040[address] [place], [place] [address]Dr. Farhat Leal PT Coag (PPP) [Time] 18.2 s Critically high 9.0-11.6 [facility] Comment on above: Performed By: #### P T ####[facility] Iwfjsqbeqc317[address] [place], [place] [address]Dr. Farhat Leal FK506 (TACROLIMUS) WHOLE BLO ODon 06-22-2022 Tacrolimus (FK506), Blood 24.5 ng/mL Invalid Interpretation Code 2.0-20.0 [facility] Comment on above: Result Comment: Trou gh (immediately following transplant) 15.0 . Trough (steady state, 2 weeks or more after transplant): 3.0 - 8.0 . Performed by LC-MS/MS technology.Patient drug level exceeds published reference range. Evaluateclinically for signs of potential toxicity. Performed By: #### F K506T ####[facility] Pbjkkgchss[address] [place], [place] [address]Dr. Farhat Leal CBC AUTO DIFFon 06-19-2022 BASO # 0.1 103/ul Normal 0.0-0.1 [facility] Comment on above: Performed By: #### C BC ####[facility] Xnaeiarppx9550 [place] [phone]. Farhat Leal Basophils/100 WBC (Bld) 0.7 % Normal 0.2-2.0 [facility] Comment on above: Performed By: #### C BC ####[facility] Ktvqpbvgai[address] [place] [phone]. Farhat Leal EO # 0.4 103/ul Normal 0.0-0.7 [facility] Comment on above: Performed By: #### C BC ####[facility] [address]vncnz[address] [place], [place] [id number]. Farhat Leal Eosinophils/100 WBC (Bld) 5.7 % Normal 0.9-7.0 [facility] Comment on above: Performed By: #### C BC ####[facility] Dhpvnnvusq[address] [place], [place] [address]Dr. Farhat Leal Erythrocyte distribution width (RBC) [Ratio] 14.5 % Normal 11.0-15.0 [facility] Comment on above: Performed By: #### C BC ####[facility] Prkgiqgbts[address] [place], [place] [address]Dr. Farhat Leal Hematocrit (Bld) [Volume fraction] 34.1 % Critically low 42.0-54.0 [facility] Comment on above: Performed By: #### C BC ####[facility] X[address]fzciwrv[address] [place], [place] [id number]. Farhat Leal Hemoglobin (Bld) [Mass/Vol] 11.3 g/dL Critically low 14.0-18.0 [facility] Comment on above: Performed By: #### C BC ####[facility] Shxxjlowod7[address] [place], [place] [address]Dr. Farhat Leal IG # 0.02 10e3/ul Normal 0.00-0.03 [facility] Comment on above: Performed By: #### C BC ####[facility] Txdchxplrc[address] [place], [place] [id number]. Farhat Leal IG % 0.3 % Normal 0.0-0.5 [facility] Comment on above: Performed By: #### C BC ####[facility] Gkdjrktfgw8[address] [place] [phone]. Farhat Leal LYMPH # 3.1 103/ul Normal 1.2-3.8 [facility] Comment on above: Performed By: #### C BC ####[facility] Dbfjeygazg4021 [place] [phone]. Farhat Elvis Lymphocytes/100 WBC (Bld) 40.6 % Normal 20.5-60.0 [facility] Comment on above: Performed By: #### C BC ####[facility] Vnwkhhmwsc8186 [place] [phone]. Farhat Elvis MANUAL DIFF REQ NO Normal [facility] Comment on above: Performed By: #### C BC ####[facility] Sutjdnymrl9[address] [place] [phone]. Farhat Elvis MCH (RBC) [Entitic mass] 30.6 pg Normal 25.9-34.0 [facility] Comment on above: Performed By: #### C BC ####[facility] Yfxjnmbbja1278 [place] [phone]. Farhat Leal MCHC (RBC) [Mass/Vol] 33.1 g/dL Normal 29.9-35.2 [facility] Comment on above: Performed By: #### C BC ####[facility] Frjiswuphh8368 [place] [phone]. Farhat Elvis MCV (RBC) [Entitic vol] 92.4 fL Normal 80.0-94.0 [facility] Comment on above: Performed By: #### C BC ####[facility] Sszdfeluri8210 [place] [phone]. Farhat Leal MONO # 0.8 103/ul Normal 0.3-0.8 [facility] Comment on above: Performed By: #### C BC ####[facility] Mszepwhygz[address] [place] [phone]. Farhat Elvis Monocytes/100 WBC (Bld) 10.6 % Normal 1.7-12.0 [facility] Comment on above: Performed By: #### C BC ####[facility] Ltopwkpvdu5524 [place] [phone]. Farhat Leal NEUT # 3.2 103/ul Normal 1.4-6.5 [facility] Comment on above: Performed By: #### C BC ####[facility] Ncsq[address]td[address] [place] [phone]. Farhat Leal Neutrophils/100 WBC (Bld) 42.1 % Critically low 43.0-75.0 [facility] Comment on above: Performed By: #### C BC ####[facility] Rjeudzfuhi4[address] [place] [phone]. Farhat Leal Platelet mean volume (Bld) [Entitic vol] 10.6 fL Normal 9.5-13.5 [facility] Comment on above: Performed By: #### C BC ####[facility] Ocuuqycygg[address] [place] [phone]. Farhat Elvis PLT 187 103/ul Normal 150-450 [facility] Comment on above: Performed By: #### C BC ####[facility] Arvcjytgmi3[address] [place] [phone]. Farhat Leal RBC 3.69 106/ul Critically low 4.70-6.10 [facility] Comment on above: Performed By: #### C BC ####[facility] Fsxvrchnxf33[address] [place] [phone]. Farhat Leal WBC 7.7 103/ul Normal 4.0-11.0 [facility] Comment on above: Performed By: #### C BC ####[facility] Axkeysfpjc4938 [place] [phone]. Farhat Leal PROF 14(COMP METB)on 023 Albumin [Mass/Vol] 2.5 g/dL Critically low 3.4-5.0 [facility] Comment on above: Performed By: #### C MP ####[facility] Oysdvzgjau[address] [place] [phone]. Madelynlorri Elvis Albumin/Globulin [Mass ratio] 0.8 {ratio} Normal [facility] Comment on above: Performed By: #### C MP ####[facility] Wpasfwkxvb90[address] [place] [phone]. Farhat Leal ALP [Catalytic activity/Vol] 60 U/L Normal 46-116 [facility] Comment on above: Performed By: #### C MP ####[facility] Rychrmfvtd3748 [place] [phone]. Farhat Leal ALT [Catalytic activity/Vol] 16 U/L Normal 16-63 [facility] Comment on above: Performed By: #### C MP ####[facility] Kseddfvhlr3[address] [place] [phone]. Frahat Leal Anion gap [Moles/Vol] 9.1 mmol/L Normal [facility] Comment on above: Performed By: #### C MP ####[facility] Fcgkpgaujl27[address] [place] [address]Dr. Farhat Leal AST [Catalytic activity/Vol] 31 U/L Normal 15-37 [facility] Comment on above: Performed By: #### C MP ####[facility] Dtlworqxox4[address] [place] [address]Dr. Farhat Leal Bilirubin [Mass/Vol] 0.3 mg/dL Normal 0.2-1.0 [facility] Comment on above: Performed By: #### C MP ####[facility] Chhnizzzfe[address] [place] [phone]. Farhat Leal Calcium [Mass/Vol] 8.2 mg/dL Critically low 8.5-10.1 [facility] Comment on above: Performed By: #### C MP ####[facility] Kfpmdxjjfr8[address] [place] [phone]. Farhat Leal Chloride [Moles/Vol] 106 mmol/L Normal 98-107 [facility] Comment on above: Performed By: #### C MP ####[facility] Eyornielcr59[address] [place] [phone]. Farhat Leal CO2 [Moles/Vol] 27.0 mmol/L Normal 21.0-32.0 [facility] Comment on above: Performed By: #### C MP ####[facility] Flqqfdwsgq28[address] [place] [phone]. Farhat Leal Creatinine [Mass/Vol] 1.51 mg/dL Critically high 0.70-1.30 [facility] Comment on above: Performed By: #### C MP ####[facility] Gqjrinurek2407 [place], [place] [address]Hs. Farhat Leal EGFR-AF MONTENEGRIN 55 mL/min/1.73m2 Critically low >=60 [facility] Comment on above: Performed By: #### C MP ####[facility] Jeolbqzdjw85[address] [place] [phone]. Farhat Leal EGFR-NON AF MONTENEGRIN 45 mL/min/1.73m2 Critically low >=60 [facility] Comment on above: Performed By: #### C MP ####[facility] Hnrxiworgw56[address] [place] [phone]. Farhat Leal Globulin (S) [Mass/Vol] 3.2 g/dL Normal [facility] Comment on above: Performed By: #### C MP ####[facility] Wsjqqhakwh96[address] [place] [phone]. Farhat Leal Glucose [Mass/Vol] 165 mg/dL Critically high 74-106 [facility] Comment on above: Performed By: #### C MP ####[facility] Yvpuzjhioi8531 [place] [phone]. Farhat Leal Potassium [Moles/Vol] 4.1 mmol/L Normal 3.5-5.1 [facility] Comment on above: Performed By: #### C MP ####[facility] Ebwlcotfis0233 [place] [phone]. Farhat Leal Protein [Mass/Vol] 5.7 g/dL Critically low 6.4-8.2 [facility] Comment on above: Performed By: #### C MP ####[facility] Rvjxhxazic5[address] [place] [phone]. Farhat Leal Sodium [Moles/Vol] 138 mmol/L Normal 136-145 [facility] Comment on above: Performed By: #### C MP ####[facility] Ohtvxdcalu05[address] [place] [address]Dr. Farhat Leal Urea nitrogen [Mass/Vol] 51.0 mg/dL Critically high 7.0-18.0 [facility] Comment on above: Performed By: #### C MP ####[facility] Irbhjlwytl[address] [place], [place] [address]Dr. Farhat Leal Urea nitrogen/Creatinine [Mass ratio] 33.8 mg/mg Normal [facility] Comment on above: Performed By: #### C MP ####[facility] Ujbhhcgyet9540[address] [place], [place] [address]Dr. Farhat Leal FK506 (TACROLIMUS) WHOLE BLO ODon 06-15-2022 Tacrolimus (FK506), Blood 16.4 ng/mL Normal 2.0-20.0 [facility] Comment on above: Result Comment: Trou gh (immediately following transplant) 15.0 . Trough (steady state, 2 weeks or more after transplant): 3.0 - 8.0 . Performed by LC-MS/MS technology. Performed By: #### F K506T ####[facility] Dwzwuqdfhd87[address] [place], [place] [address]Dr. Farhat Leal PROTIMEon 06-15-2022 INR Coag (PPP) [Relative time] 1.64 {INR} Normal [facility] Comment on above: Performed By: #### P T ####[facility] Zspqmbrnfi[address] [place], [place] [address]Dr. Farhat Leal INR GUIDELINES SEE BELOW Normal [facility] Comment on above: Result Comment: MALINA RED INR: 2.0 - 3.0 CONDITIONS NOT LISTED BELOW 2.5 - 3.5 FOR PROSTHETIC HEART VALVE REPLACEMENT 2.5 - 3.5 RECURRENT THROMBOSIS Performed By: #### P T ####[facility] Kjplbfgvdo[address] [place], [place] [address]Dr. Farhat Leal PT Coag (PPP) [Time] 16.9 s Critically high 9.0-11.6 [facility] Comment on above: Performed By: #### P T ####[facility] Fsutqdgvop00[address] [place], [place] [address]Dr. Farhat Leal CBC AUTO DIFFon 06-12-2022 BASO # 0.0 103/ul Normal 0.0-0.1 [facility] Comment on above: Performed By: #### C BC ####[facility] Eczoxyvnoz13[address] [place], [place] [address]Dr. Farhat Leal Basophils/100 WBC (Bld) 0.4 % Normal 0.2-2.0 [facility] Comment on above: Performed By: #### C BC ####[facility] Yascjurldo[address] [place], [place] [address]Dr. Farhat Leal EO # 0.4 103/ul Normal 0.0-0.7 [facility] Comment on above: Performed By: #### C BC ####[facility] Qgnmvuhpda307[address] [place], [place] [address]Dr. Farhat Leal Eosinophils/100 WBC (Bld) 5.4 % Normal 0.9-7.0 [facility] Comment on above: Performed By: #### C BC ####[facility] Aezhcvpcrm65[address] [place], [place] [address]Dr. Farhat Leal Erythrocyte distribution width (RBC) [Ratio] 14.7 % Normal 11.0-15.0 [facility] Comment on above: Performed By: #### C BC ####[facility] Peqadlwjgu260[address] [place], [place] [address]Dr. Farhat Leal Hematocrit (Bld) [Volume fraction] 34.8 % Critically low 42.0-54.0 [facility] Comment on above: Performed By: #### C BC ####[facility] Pjyvvimgfs72[address] [place], [place] [address]Dr. Farhat Leal Hemoglobin (Bld) [Mass/Vol] 11.7 g/dL Critically low 14.0-18.0 [facility] Comment on above: Performed By: #### C BC ####[facility] Eexmylbvqp[address] [place], [place] [address]Dr. Madelynlorri Leal IG # 0.02 10e3/ul Normal 0.00-0.03 [facility] Comment on above: Performed By: #### C BC ####[facility] Ywxbbtccrk5[address] [place] [phone]. Farhat Leal IG % 0.3 % Normal 0.0-0.5 [facility] Comment on above: Performed By: #### C BC ####[facility] Czivbmfams75[address] [place] [address]Dr. Farhat Leal LYMPH # 2.5 103/ul Normal 1.2-3.8 [facility] Comment on above: Performed By: #### C BC ####[facility] Bchgymbsuy[address] [place] [address]Dr. Farhat Leal Lymphocytes/100 WBC (Bld) 36.8 % Normal 20.5-60.0 [facility] Comment on above: Performed By: #### C BC ####[facility] Iafqjjnmha4[address] [place] [address]Dr. Farhat Leal MANUAL DIFF REQ NO Normal [facility] Comment on above: Performed By: #### C BC ####[facility] Prexoxkmdu19[address] [place] [address]Dr. Farhat Elvis MCH (RBC) [Entitic mass] 30.9 pg Normal 25.9-34.0 [facility] Comment on above: Performed By: #### C BC ####[facility] Xtnzgrwvjo[address] [place], [place] [address]Dr. Farhat Elvis MCHC (RBC) [Mass/Vol] 33.6 g/dL Normal 29.9-35.2 [facility] Comment on above: Performed By: #### C BC ####[facility] Krourixvqn3598 [place] [address]Dr. Farhat Leal MCV (RBC) [Entitic vol] 91.8 fL Normal 80.0-94.0 [facility] Comment on above: Performed By: #### C BC ####[facility] Lwgpqsaift[address] [place], [place] [address]Dr. Farhat Leal MONO # 0.8 103/ul Normal 0.3-0.8 [facility] Comment on above: Performed By: #### C BC ####[facility] Jxayvuvzvq[address] [place], [place] [address]Dr. Farhat Leal Monocytes/100 WBC (Bld) 11.9 % Normal 1.7-12.0 [facility] Comment on above: Performed By: #### C BC ####[facility] Ikvwvbihvn3507 [place] [address]Dr. Farhat Leal NEUT # 3.1 103/ul Normal 1.4-6.5 [facility] Comment on above: Performed By: #### C BC ####[facility] Wmzlmwanrn3810 [place] [address]Dr. Farhat Leal Neutrophils/100 WBC (Bld) 45.2 % Normal 43.0-75.0 [facility] Comment on above: Performed By: #### C BC ####[facility] Zagvfeuicd0871 [place] [address]Dr. Farhat Leal Platelet mean volume (Bld) [Entitic vol] 10.5 fL Normal 9.5-13.5 [facility] Comment on above: Performed By: #### C BC ####[facility] Quqwivloom94[address] [place] [address]Dr. Farhat Leal PLT 175 103/ul Normal 150-450 [facility] Comment on above: Performed By: #### C BC ####[facility] Ddxlgsxmvy8118 [place] [address]Dr. Farhat Leal RBC 3.79 106/ul Critically low 4.70-6.10 [facility] Comment on above: Performed By: #### C BC ####[facility] Qnhktafrjm2037 [place] [address]Dr. Farhat Leal WBC 6.8 103/ul Normal 4.0-11.0 [facility] Comment on above: Performed By: #### C BC ####[facility] Zprkxkghly1892 [place] [address]Dr. Farhat Leal MAGNESIUMon 06-12-2022 Magnesium [Mass/Vol] 1.6 mg/dL Critically low 1.8-2.4 [facility] Comment on above: Performed By: #### C MP, MG, PHOS ####[facility] Jmluralaqq8328 [place] [address]Dr. Farhat Leal PHOSPHORUSon 06-12-2022 Phosphate [Mass/Vol] 3.8 mg/dL Normal 2.6-4.7 [facility] Comment on above: Performed By: #### C MP, MG, PHOS ####[facility] Dxnkquiqxf[address] [place] [address]Dr. Farhat Leal PROF 14(COMP METB)on 023 Albumin [Mass/Vol] 2.6 g/dL Critically low 3.4-5.0 [facility] Comment on above: Performed By: #### C MP, MG, PHOS ####[facility] Hetymkljtv8864[address] [place], [place] [address]Dr. Farhat Leal Albumin/Globulin [Mass ratio] 0.8 {ratio} Normal [facility] Comment on above: Performed By: #### C MP, MG, PHOS ####[facility] Gbdljwbsea[address] [place], [place] [address]Dr. Farhat Leal ALP [Catalytic activity/Vol] 64 U/L Normal 46-116 [facility] Comment on above: Performed By: #### C MP, MG, PHOS ####[facility] Vnkdekkjdg760[address] [place], [place] [address]Dr. Farhat Leal ALT [Catalytic activity/Vol] 18 U/L Normal 16-63 [facility] Comment on above: Performed By: #### C MP, MG, PHOS ####[facility] Kjrgrbppfz326[address] [place], [place] [address]Dr. Farhat Leal Anion gap [Moles/Vol] 12.9 mmol/L Normal [facility] Comment on above: Performed By: #### C MP, MG, PHOS ####[facility] Kjywnrgqjr5[address] [place], [place] [address]Dr. Farhat Leal AST [Catalytic activity/Vol] 18 U/L Normal 15-37 [facility] Comment on above: Performed By: #### C MP, MG, PHOS ####[facility] Iezoudwbwx1739[address] [place], [place] [address]Dr. Farhat Leal Bilirubin [Mass/Vol] 0.4 mg/dL Normal 0.2-1.0 [facility] Comment on above: Performed By: #### C MP, MG, PHOS ####[facility] Iwrxoofgrf7397 [place] [address]Dr. Farhat Leal Calcium [Mass/Vol] 8.7 mg/dL Normal 8.5-10.1 [facility] Comment on above: Performed By: #### C MP, MG, PHOS ####[facility] Hwsncopymc32[address] [place], [place] [address]Dr. Farhat Leal Chloride [Moles/Vol] 105 mmol/L Normal 98-107 [facility] Comment on above: Performed By: #### C MP, MG, PHOS ####[facility] Euwjkmzkbo9[address] [place], [place] [address]Dr. Farhat Leal CO2 [Moles/Vol] 27.9 mmol/L Normal 21.0-32.0 [facility] Comment on above: Performed By: #### C MP, MG, PHOS ####[facility] Iebsdtnnhb26[address] [place], [place] [address]Dr. Farhat Leal Creatinine [Mass/Vol] 1.53 mg/dL Critically high 0.70-1.30 [facility] Comment on above: Performed By: #### C MP, MG, PHOS ####[facility] Prafyzqwat9045[address] [place], [place] [address]Dr. Farhat Leal EGFR-AF MONTENEGRIN 54 mL/min/1.73m2 Critically low >=60 [facility] Comment on above: Performed By: #### C MP, MG, PHOS ####[facility] Hboutzaqnq5904[address] [place], [place] [address]Dr. Farhat Leal EGFR-NON AF MONTENEGRIN 44 mL/min/1.73m2 Critically low >=60 [facility] Comment on above: Performed By: #### C MP, MG, PHOS ####[facility] Tabaeuzqko3515[address] [place], [place] [address]Dr. Farhat Leal Globulin (S) [Mass/Vol] 3.4 g/dL Normal [facility] Comment on above: Performed By: #### C MP, MG, PHOS ####[facility] Onrpgakeke5133 [place] [address]Dr. Farhat Leal Glucose [Mass/Vol] 179 mg/dL Critically high 74-106 [facility] Comment on above: Performed By: #### C MP, MG, PHOS ####[facility] Vqjgbmaxcl8193 [place] [address]Dr. Farhat Leal Potassium [Moles/Vol] 3.8 mmol/L Normal 3.5-5.1 [facility] Comment on above: Performed By: #### C MP, MG, PHOS ####[facility] Tpuybpygwa9267 [place] [address]Dr. Farhat Leal Protein [Mass/Vol] 6.0 g/dL Critically low 6.4-8.2 [facility] Comment on above: Performed By: #### C MP, MG, PHOS ####[facility] Gsgxczawhz[address] [place], [place] [address]Dr. Farhat Leal Sodium [Moles/Vol] 142 mmol/L Normal 136-145 [facility] Comment on above: Performed By: #### C MP, MG, PHOS ####[facility] Qyxywbcowt5857 [place] [address]Dr. Farhat Leal Urea nitrogen [Mass/Vol] 56.0 mg/dL Critically high 7.0-18.0 [facility] Comment on above: Performed By: #### C MP, MG, PHOS ####[facility] Aomfxkbaba058[address] [place], [place] [address]Dr. Farhat Leal Urea nitrogen/Creatinine [Mass ratio] 36.6 mg/mg Normal [facility] Comment on above: Performed By: #### C MP, MG, PHOS ####[facility] Hflfmkrauv3734 [place] [address]Dr. Farhat Leal FK506 (TACROLIMUS) WHOLE BLO ODon 06-08-2022 Tacrolimus (FK506), Blood 13.2 ng/mL Normal 2.0-20.0 [facility] Comment on above: Result Comment: Trou gh (immediately following transplant) 15.0 . Trough (steady state, 2 weeks or more after transplant): 3.0 - 8.0 . Performed by LC-MS/MS technology. Performed By: #### F K506T ####[facility] Azyxwqqnam6170 [place] [address]Dr. Farhat Leal CBC AUTO DIFFon 06-05-2022 BASO # 0.1 103/ul Normal 0.0-0.1 [facility] Comment on above: Performed By: #### C BC ####[facility] Hhxjrmtvcu[address] [place], [place] [address]Dr. Madelynlorri Leal Basophils/100 WBC (Bld) 0.8 % Normal 0.2-2.0 [facility] Comment on above: Performed By: #### C BC ####[facility] Swbymjdspl[address] [place], [place] [address]Dr. Farhat Leal EO # 0.3 103/ul Normal 0.0-0.7 [facility] Comment on above: Performed By: #### C BC ####[facility] Strlhyukab8[address] [place], [place] [address]Dr. Madelynlorri Leal Eosinophils/100 WBC (Bld) 4.7 % Normal 0.9-7.0 [facility] Comment on above: Performed By: #### C BC ####[facility] Vxypfzzdhr[address] [place], [place] [address]Dr. Farhat Leal Erythrocyte distribution width (RBC) [Ratio] 15.1 % Critically high 11.0-15.0 [facility] Comment on above: Performed By: #### C BC ####[facility] Ygimtogqcy[address] [place], [place] [address]Dr. Farhat Leal Hematocrit (Bld) [Volume fraction] 35.5 % Critically low 42.0-54.0 [facility] Comment on above: Performed By: #### C BC ####[facility] Kikzawmqti06[address] [place], [place] [address]Dr. Farhat Leal Hemoglobin (Bld) [Mass/Vol] 11.7 g/dL Critically low 14.0-18.0 [facility] Comment on above: Performed By: #### C BC ####[facility] Hnbkcgecrj5783 [place] [phone]. Madelynlorri Leal IG # 0.01 10e3/ul Normal 0.00-0.03 [facility] Comment on above: Performed By: #### C BC ####[facility] Meeyfekfzz8071 [place] [phone]. Farhat Leal IG % 0.2 % Normal 0.0-0.5 [facility] Comment on above: Performed By: #### C BC ####[facility] Ojclaozrqn68[address] [place] [address]Dr. Farhat Leal LYMPH # 2.1 103/ul Normal 1.2-3.8 [facility] Comment on above: Performed By: #### C BC ####[facility] Qsbweudmmx8637 [place] [address]Dr. Farhat Leal Lymphocytes/100 WBC (Bld) 34.5 % Normal 20.5-60.0 [facility] Comment on above: Performed By: #### C BC ####[facility] Lummjhqfny9[address] [place] [address]Dr. Madelynlorri Leal MANUAL DIFF REQ NO Normal [facility] Comment on above: Performed By: #### C BC ####[facility] Ggyhyvlfcc6247 [place] [address]Dr. Farhat Leal MCH (RBC) [Entitic mass] 30.6 pg Normal 25.9-34.0 [facility] Comment on above: Performed By: #### C BC ####[facility] Wbcgdjgpcf0669 [place] [address]Dr. Farhat Leal MCHC (RBC) [Mass/Vol] 33.0 g/dL Normal 29.9-35.2 [facility] Comment on above: Performed By: #### C BC ####[facility] Tlalltiwwj8786 [place] [address]Dr. Madelynlorri Leal MCV (RBC) [Entitic vol] 92.9 fL Normal 80.0-94.0 [facility] Comment on above: Performed By: #### C BC ####[facility] Zytsurezbz4469 [place] [phone]. Farhat Leal MONO # 0.7 103/ul Normal 0.3-0.8 [facility] Comment on above: Performed By: #### C BC ####[facility] Cijycmifqx5652 [place] [phone]. Farhat Leal Monocytes/100 WBC (Bld) 11.4 % Normal 1.7-12.0 [facility] Comment on above: Performed By: #### C BC ####[facility] Tmpfaslmgj8923 [place] [phone]. Farhat Leal NEUT # 2.9 103/ul Normal 1.4-6.5 [facility] Comment on above: Performed By: #### C BC ####[facility] Fytikllusc58[address] [place] [phone]. Farhat Leal Neutrophils/100 WBC (Bld) 48.4 % Normal 43.0-75.0 [facility] Comment on above: Performed By: #### C BC ####[facility] Kxwbduskuj5471 [place] [phone]. Farhat Leal Platelet mean volume (Bld) [Entitic vol] 10.7 fL Normal 9.5-13.5 [facility] Comment on above: Performed By: #### C BC ####[facility] Gnkffrvcxe9279 [place] [phone]. Farhat Leal PLT 185 103/ul Normal 150-450 [facility] Comment on above: Performed By: #### C BC ####[facility] Igrvwknlev028[address] [place] [phone]. Farhat Leal RBC 3.82 106/ul Critically low 4.70-6.10 [facility] Comment on above: Performed By: #### C BC ####[facility] Sazihrwwpw1822 [place] [phone]. Farhat Leal WBC 6.0 103/ul Normal 4.0-11.0 [facility] Comment on above: Performed By: #### C BC ####[facility] Ttnunnsuzu[address] [place], [place] [id number]. Farhat Leal MAGNESIUMon 06-05-2022 Magnesium [Mass/Vol] 1.9 mg/dL Normal 1.8-2.4 [facility] Comment on above: Performed By: #### P HOS, MG ####[facility] Olbnxogxko12[address] [place] [address]Dr. Farhat Leal PHOSPHORUSon 06-05-2022 Phosphate [Mass/Vol] 4.4 mg/dL Normal 2.6-4.7 [facility] Comment on above: Performed By: #### P HOS, MG ####[facility] Persniyduk[address] [place] [address]Dr. Farhat Leal PROTIMEon 06-05-2022 INR Coag (PPP) [Relative time] 2.16 {INR} Normal [facility] Comment on above: Performed By: #### P T ####[facility] [address]px[address] [place], [place] [address]Dr. Farhat Leal INR GUIDELINES SEE BELOW Normal [facility] Comment on above: Result Comment: MALINA RED INR: 2.0 - 3.0 CONDITIONS NOT LISTED BELOW 2.5 - 3.5 FOR PROSTHETIC HEART VALVE REPLACEMENT 2.5 - 3.5 RECURRENT THROMBOSIS Performed By: #### P T ####[facility] [address]antv[address]fta[address] [place], [place] [address]Dr. Farhat Leal PT Coag (PPP) [Time] 21.9 s Critically high 9.0-11.6 [facility] Comment on above: Performed By: #### P T ####[facility] Bjbkwilxon[address] [place], [place] [address]Dr. Farhat Leal FK506 (TACROLIMUS) WHOLE BLO ODon 06-01-2022 Tacrolimus (FK506), Blood 26.4 ng/mL Invalid Interpretation Code 2.0-20.0 [facility] Comment on above: Result Comment: Trou gh (immediately following transplant) 15.0 . Trough (steady state, 2 weeks or more after transplant): 3.0 - 8.0 . Performed by LC-MS/MS technology.Patient drug level exceeds published reference range. Evaluateclinically for signs of potential toxicity. Performed By: #### F [id number] ####[facility] Fcpmtmdrzl7228 [place] [phone]. Farhat Leal CBC AUTO DIFFon 05-29-2022 BASO # 0.0 103/ul Normal 0.0-0.1 [facility] Comment on above: Performed By: #### C BC ####[facility] Etnmaxafnx6840 [place] [address]Dr. Farhat Leal Basophils/100 WBC (Bld) 0.6 % Normal 0.2-2.0 [facility] Comment on above: Performed By: #### C BC ####[facility] Qglxncsjks217[address] [place], [place] [address]Dr. Farhat Leal EO # 0.3 103/ul Normal 0.0-0.7 [facility] Comment on above: Performed By: #### C BC ####[facility] Yllpadutqs8523[address] [place], [place] [address]Dr. Farhat Elvis Eosinophils/100 WBC (Bld) 4.7 % Normal 0.9-7.0 [facility] Comment on above: Performed By: #### C BC ####[facility] Lnawgtmxnn5[address] [place], [place] [address]Dr. Farhat Leal Erythrocyte distribution width (RBC) [Ratio] 15.3 % Critically high 11.0-15.0 [facility] Comment on above: Performed By: #### C BC ####[facility] Shulqhwfdf39[address] [place], [place] [address]Dr. Farhat Leal Hematocrit (Bld) [Volume fraction] 36.6 % Critically low 42.0-54.0 [facility] Comment on above: Performed By: #### C BC ####[facility] Stopzigeqq870[address] [place], [place] [address]Dr. Farhat Leal Hemoglobin (Bld) [Mass/Vol] 12.3 g/dL Critically low 14.0-18.0 [facility] Comment on above: Performed By: #### C BC ####[facility] Oghgldqcbq029[address] [place], [place] [address]Dr. Farhat Leal IG # 0.02 10e3/ul Normal 0.00-0.03 [facility] Comment on above: Performed By: #### C BC ####[facility] Obdjlhwrxs99[address] [place] [address]Dr. Farhat Leal IG % 0.3 % Normal 0.0-0.5 [facility] Comment on above: Performed By: #### C BC ####[facility] Jdxmfqeybu8082 [place] [address]Dr. Farhat Leal LYMPH # 2.8 103/ul Normal 1.2-3.8 [facility] Comment on above: Performed By: #### C BC ####[facility] Qgqqxipxib2527 [place] [address]Dr. Farhat Leal Lymphocytes/100 WBC (Bld) 44.4 % Normal 20.5-60.0 [facility] Comment on above: Performed By: #### C BC ####[facility] Ypaeuyltda8[address] [place], [place] [address]Dr. Farhat Leal MANUAL DIFF REQ NO Normal [facility] Comment on above: Performed By: #### C BC ####[facility] Alfeumdcae3271 [place] [phone]. Farhat Leal MCH (RBC) [Entitic mass] 30.4 pg Normal 25.9-34.0 [facility] Comment on above: Performed By: #### C BC ####[facility] Awlyamqoss1764 [place] [phone]. Farhat Leal MCHC (RBC) [Mass/Vol] 33.6 g/dL Normal 29.9-35.2 [facility] Comment on above: Performed By: #### C BC ####[facility] Stbdnyhllf[address] [place], [place] [id number] Leal MCV (RBC) [Entitic vol] 90.4 fL Normal 80.0-94.0 [facility] Comment on above: Performed By: #### C BC ####[facility] Ebcweapbhm4693 [place] [address]DrSkylar Leal MONO # 0.7 103/ul Normal 0.3-0.8 [facility] Comment on above: Performed By: #### C BC ####[facility] Bqdecndleh6133 [place] [phone]. Farhat Leal Monocytes/100 WBC (Bld) 10.7 % Normal 1.7-12.0 [facility] Comment on above: Performed By: #### C BC ####[facility] Xwmzwghybp2940 [place] [phone]. Farhat Leal NEUT # 2.5 103/ul Normal 1.4-6.5 [facility] Comment on above: Performed By: #### C BC ####[facility] Eummulvfqa3055 [place] [phone]. Farhat Leal Neutrophils/100 WBC (Bld) 39.3 % Critically low 43.0-75.0 [facility] Comment on above: Performed By: #### C BC ####[facility] Hqwbwavvxa6647 [place] [address]Dr. Farhat Leal Platelet mean volume (Bld) [Entitic vol] 10.5 fL Normal 9.5-13.5 [facility] Comment on above: Performed By: #### C BC ####[facility] Fhbzrvpegf9689 [place] [phone]. Farhat Leal PLT 190 103/ul Normal 150-450 [facility] Comment on above: Performed By: #### C BC ####[facility] Fuoxhdasun1921 [place] [phone]. Farhat Leal RBC 4.05 106/ul Critically low 4.70-6.10 [facility] Comment on above: Performed By: #### C BC ####[facility] Hvwwbcndqi8890 [place] [phone]. Farhat Leal WBC 6.4 103/ul Normal 4.0-11.0 [facility] Comment on above: Performed By: #### C BC ####[facility] Esovjjeypv9236 [place] [phone] Leal PROF 14(COMP METB)on 023 Albumin [Mass/Vol] 2.5 g/dL Critically low 3.4-5.0 [facility] Comment on above: Performed By: #### C MP ####[facility] Mwgneetigv8959 [place] [address]Dr. Farhat Elvis Albumin/Globulin [Mass ratio] 0.8 {ratio} Normal [facility] Comment on above: Performed By: #### C MP ####[facility] Izwtkyyndq6055 [place] [address]Dr. Farhat Elvis ALP [Catalytic activity/Vol] 61 U/L Normal 46-116 [facility] Comment on above: Performed By: #### C MP ####[facility] Obvzagnrtz5033[address] [place], [place] [address]Dr. Madelynlorri Leal ALT [Catalytic activity/Vol] 16 U/L Normal 16-63 [facility] Comment on above: Performed By: #### C MP ####[facility] Tazhkpktbv385[address] [place], [place] [address]Dr. Farhat Leal Anion gap [Moles/Vol] 12.3 mmol/L Normal [facility] Comment on above: Performed By: #### C MP ####[facility] Cbapbxcjtv5867[address] [place], [place] [address]Dr. Farhat Elvis AST [Catalytic activity/Vol] 18 U/L Normal 15-37 [facility] Comment on above: Performed By: #### C MP ####[facility] Ebtomeiygm610[address] [place], [place] [address]Dr. Farhat Leal Bilirubin [Mass/Vol] 0.5 mg/dL Normal 0.2-1.0 [facility] Comment on above: Performed By: #### C MP ####[facility] Opesewgavv459[address] [place], [place] [address]Dr. Farhat Leal Calcium [Mass/Vol] 8.6 mg/dL Normal 8.5-10.1 [facility] Comment on above: Performed By: #### C MP ####[facility] Vvivtoxmot135[address] [place], [place] [address]Dr. Farhat Leal Chloride [Moles/Vol] 105 mmol/L Normal 98-107 [facility] Comment on above: Performed By: #### C MP ####[facility] Gvijnzsnig6016 [place] [phone]. Farhat Leal CO2 [Moles/Vol] 28.6 mmol/L Normal 21.0-32.0 [facility] Comment on above: Performed By: #### C MP ####[facility] Dckqshibnn5133 [place] [phone]. Farhat Leal Creatinine [Mass/Vol] 1.47 mg/dL Critically high 0.70-1.30 [facility] Comment on above: Performed By: #### C MP ####[facility] Jvrskcftcd2450 [place] [phone]. Farhat Leal EGFR-AF MONTENEGRIN 56 mL/min/1.73m2 Critically low >=60 [facility] Comment on above: Performed By: #### C MP ####[facility] Prqgrfpabo4959 [place] [address]Dr. Farhat Leal EGFR-NON AF MONTENEGRIN 46 mL/min/1.73m2 Critically low >=60 [facility] Comment on above: Performed By: #### C MP ####[facility] Hasbtfibfl3234 [place] [address]Dr. Farhat Leal Globulin (S) [Mass/Vol] 3.3 g/dL Normal [facility] Comment on above: Performed By: #### C MP ####[facility] Mogecbiriy8270 [place] [address]Dr. Farhat Leal Glucose [Mass/Vol] 164 mg/dL Critically high 74-106 [facility] Comment on above: Performed By: #### C MP ####[facility] Lpohmdtdmi6906 [place] [phone]. Farhat Leal Potassium [Moles/Vol] 3.9 mmol/L Normal 3.5-5.1 [facility] Comment on above: Performed By: #### C MP ####[facility] Dioeqxrkwp2272 [place] [phone]. Farhat Leal Protein [Mass/Vol] 5.8 g/dL Critically low 6.4-8.2 [facility] Comment on above: Performed By: #### C MP ####[facility] Mkpwffpzwe3588 [place] [address]Dr. Farhat Leal Sodium [Moles/Vol] 142 mmol/L Normal 136-145 [facility] Comment on above: Performed By: #### C MP ####[facility] Ohnewjbvas2061 [place] [address]Dr. Farhat Leal Urea nitrogen [Mass/Vol] 53.0 mg/dL Critically high 7.0-18.0 [facility] Comment on above: Performed By: #### C MP ####[facility] Jtyopvljzk905[address] [place], [place] [address]Dr. Farhat Leal Urea nitrogen/Creatinine [Mass ratio] 36.1 mg/mg Normal [facility] Comment on above: Performed By: #### C MP ####[facility] Otjwgwqgfo3845[address] [place], [place] [address]Dr. Farhat Leal PROTIMEon 05-29-2022 INR Coag (PPP) [Relative time] 2.41 {INR} Normal [facility] Comment on above: Performed By: #### P T ####[facility] Msxnrcyjbv669[address] [place], [place] [address]Dr. Farhat Leal INR GUIDELINES SEE BELOW Normal [facility] Comment on above: Result Comment: MALINA RED INR: 2.0 - 3.0 CONDITIONS NOT LISTED BELOW 2.5 - 3.5 FOR PROSTHETIC HEART VALVE REPLACEMENT 2.5 - 3.5 RECURRENT THROMBOSIS Performed By: #### P T ####[facility] Qkhishercg995[address] [place], [place] [address]Dr. Farhat Leal PT Coag (PPP) [Time] 24.3 s Critically high 9.0-11.6 [facility] Comment on above: Performed By: #### P T ####[facility] Ynahfphxqu415[address] [place], [place] [address]Dr. Farhat Leal FK506 (TACROLIMUS) WHOLE BLO ODon 05-25-2022 Tacrolimus (FK506), Blood 5.1 ng/mL Normal 2.0-20.0 [facility] Comment on above: Result Comment: Trou gh (immediately following transplant) 15.0 . Trough (steady state, 2 weeks or more after transplant): 3.0 - 8.0 . Performed by LC-MS/MS technology. Performed By: #### F K506T ####[facility] Fesuojepas5[address] [place] [address]Dr. Farhat Elvis CBC AUTO DIFFon 05-22-2022 BASO # 0.0 103/ul Normal 0.0-0.1 [facility] Comment on above: Performed By: #### C BC ####[facility] Tkkpxjeskv4026[address] [place], [place] [address]Dr. Farhat Leal Basophils/100 WBC (Bld) 0.5 % Normal 0.2-2.0 [facility] Comment on above: Performed By: #### C BC ####[facility] Higuidsajp665[address] [place], [place] [address]Dr. Farhat Leal EO # 0.2 103/ul Normal 0.0-0.7 [facility] Comment on above: Performed By: #### C BC ####[facility] Qxosuedqln249[address] [place], [place] [address]Dr. Farhat Leal Eosinophils/100 WBC (Bld) 4.0 % Normal 0.9-7.0 [facility] Comment on above: Performed By: #### C BC ####[facility] Fapellhric5100[address] [place], [place] [address]Dr. Farhat Leal Erythrocyte distribution width (RBC) [Ratio] 15.5 % Critically high 11.0-15.0 [facility] Comment on above: Performed By: #### C BC ####[facility] Xyuxefbhxz9459[address] [place], [place] [address]Dr. Farhat Leal Hematocrit (Bld) [Volume fraction] 34.1 % Critically low 42.0-54.0 [facility] Comment on above: Performed By: #### C BC ####[facility] Xvnfwybfvi35[address] [place], [place] [address]Dr. Farhat Leal Hemoglobin (Bld) [Mass/Vol] 11.3 g/dL Critically low 14.0-18.0 [facility] Comment on above: Performed By: #### C BC ####[facility] Zfxuzqnses8480 [place] [phone]. Farhat Leal IG # 0.03 10e3/ul Normal 0.00-0.03 [facility] Comment on above: Performed By: #### C BC ####[facility] Siupmtbzlk4345 [place] [phone]. Farhat Leal IG % 0.5 % Normal 0.0-0.5 [facility] Comment on above: Performed By: #### C BC ####[facility] Nwzqzsswgd8389 [place] [phone]. Farhat Elvis LYMPH # 2.1 103/ul Normal 1.2-3.8 [facility] Comment on above: Performed By: #### C BC ####[facility] Oqpuoknmzn9054 [place] [address]Dr. Farhat Leal Lymphocytes/100 WBC (Bld) 34.6 % Normal 20.5-60.0 [facility] Comment on above: Performed By: #### C BC ####[facility] Dpzcguyhsh9135 [place] [phone]. Madelynlorri Leal MANUAL DIFF REQ NO Normal [facility] Comment on above: Performed By: #### C BC ####[facility] Xnrkhsnrfq3173 [place] [phone]. Farhat Leal MCH (RBC) [Entitic mass] 30.3 pg Normal 25.9-34.0 [facility] Comment on above: Performed By: #### C BC ####[facility] Osgkgnvrwi2[address] [place], [place] [address]Dr. Farhat Leal MCHC (RBC) [Mass/Vol] 33.1 g/dL Normal 29.9-35.2 [facility] Comment on above: Performed By: #### C BC ####[facility] Ykavjbcyrc6570 [place] [address]Dr. Farhat Leal MCV (RBC) [Entitic vol] 91.4 fL Normal 80.0-94.0 [facility] Comment on above: Performed By: #### C BC ####[facility] Xurptyjttu2280 [place] [phone]. Farhat Leal MONO # 0.7 103/ul Normal 0.3-0.8 [facility] Comment on above: Performed By: #### C BC ####[facility] Hmjndaurjw9831 [place] [phone]. Farhat Leal Monocytes/100 WBC (Bld) 11.6 % Normal 1.7-12.0 [facility] Comment on above: Performed By: #### C BC ####[facility] Lmkdbpeqkr3684 [place] [phone]. Farhat Leal NEUT # 2.9 103/ul Normal 1.4-6.5 [facility] Comment on above: Performed By: #### C BC ####[facility] Lqphatuhli7996 [place] [phone]. Farhat Leal Neutrophils/100 WBC (Bld) 48.8 % Normal 43.0-75.0 [facility] Comment on above: Performed By: #### C BC ####[facility] Jijhehtbbu9902 [place] [phone]. Farhat Leal Platelet mean volume (Bld) [Entitic vol] 10.9 fL Normal 9.5-13.5 [facility] Comment on above: Performed By: #### C BC ####[facility] Yanvldaexp5941 [place] [phone]. Farhat Leal PLT 186 103/ul Normal 150-450 [facility] Comment on above: Performed By: #### C BC ####[facility] Tvsoolgtar2604 [place] [phone]. Farhat Leal RBC 3.73 106/ul Critically low 4.70-6.10 [facility] Comment on above: Performed By: #### C BC ####[facility] Ylfinnwlfn6317 [place] [phone]. Farhat Leal WBC 6.0 103/ul Normal 4.0-11.0 [facility] Comment on above: Performed By: #### C BC ####[facility] Kucskdgabl2054 [place] [address]Dr. Farhat Leal PROF 14(COMP METB)on 023 Albumin [Mass/Vol] 2.7 g/dL Critically low 3.4-5.0 [facility] Comment on above: Performed By: #### C MP ####[facility] Ikxwvejzvt5671 [place] [address]Dr. Farhat Leal Albumin/Globulin [Mass ratio] 0.8 {ratio} Normal [facility] Comment on above: Performed By: #### C MP ####[facility] Oniafswbrg9693 [place] [address]Dr. Farhat Leal ALP [Catalytic activity/Vol] 60 U/L Normal 46-116 [facility] Comment on above: Performed By: #### C MP ####[facility] Fgpdtstuba71[address] [place], [place] [address]Dr. Farhat Leal ALT [Catalytic activity/Vol] 17 U/L Normal 16-63 [facility] Comment on above: Performed By: #### C MP ####[facility] Faysvgfrhe5022[address] [place], [place] [address]Dr. Farhat Leal Anion gap [Moles/Vol] 9.6 mmol/L Normal [facility] Comment on above: Performed By: #### C MP ####[facility] Qnukyrdfjc723[address] [place], [place] [address]Dr. Farhat Leal AST [Catalytic activity/Vol] 14 U/L Critically low 15-37 [facility] Comment on above: Performed By: #### C MP ####[facility] Bqxaiqiono512[address] [place], [place] [address]Dr. Farhat Leal Bilirubin [Mass/Vol] 0.5 mg/dL Normal 0.2-1.0 [facility] Comment on above: Performed By: #### C MP ####[facility] Bpbifycfhd584[address] [place], [place] [address]Dr. Farhat Leal Calcium [Mass/Vol] 8.4 mg/dL Critically low 8.5-10.1 [facility] Comment on above: Performed By: #### C MP ####[facility] Wtlxlqygjj0979 [place] [phone]. Farhat Leal Chloride [Moles/Vol] 104 mmol/L Normal 98-107 [facility] Comment on above: Performed By: #### C MP ####[facility] Vrypriopgc5376 [place] [phone]. Farhat Leal CO2 [Moles/Vol] 27.2 mmol/L Normal 21.0-32.0 [facility] Comment on above: Performed By: #### C MP ####[facility] Qyahremfcx4412 [place] [address]Dr. Farhat Leal Creatinine [Mass/Vol] 1.24 mg/dL Normal 0.70-1.30 [facility] Comment on above: Performed By: #### C MP ####[facility] Yyfsvzuryc9742 [place] [address]Dr. Farhat Elvis EGFR-AF MONTENEGRIN >60 Normal >=60 [facility] Comment on above: Performed By: #### C MP ####[facility] Fbrgasjfjh7367 [place] [address]Dr. Farhat Elvis EGFR-NON AF MONTENEGRIN 57 mL/min/1.73m2 Critically low >=60 [facility] Comment on above: Performed By: #### C MP ####[facility] Qjtvfiigdr2979 [place] [address]Dr. Farhat Leal Globulin (S) [Mass/Vol] 3.3 g/dL Normal [facility] Comment on above: Performed By: #### C MP ####[facility] Nnkwmwdpyc2603 [place] [address]Dr. Farhat Elvis Glucose [Mass/Vol] 275 mg/dL Critically high 74-106 [facility] Comment on above: Performed By: #### C MP ####[facility] Jlnaeyxnlt3401 [place] [address]Dr. Farhat Leal Potassium [Moles/Vol] 3.8 mmol/L Normal 3.5-5.1 [facility] Comment on above: Performed By: #### C MP ####[facility] Hrvkcgrgpq[address] [place], [place] [address]Dr. Farhat Leal Protein [Mass/Vol] 6.0 g/dL Critically low 6.4-8.2 Th e [facility] Comment on above: Performed By: #### C MP ####[facility] Aimqbejgcm6825 [place] [address]Dr. aFrhat Leal Sodium [Moles/Vol] 137 mmol/L Normal 136-145 [facility] Comment on above: Performed By: #### C MP ####[facility] Rqaaeeyrym7033[address] [place], [place] [address]Dr. Farhat Leal Urea nitrogen [Mass/Vol] 54.0 mg/dL Critically high 7.0-18.0 [facility] Comment on above: Performed By: #### C MP ####[facility] Chgkomyygu4800[address] [place], [place] [address]Dr. Farhat Lael Urea nitrogen/Creatinine [Mass ratio] 43.5 mg/mg Normal [facility] Comment on above: Performed By: #### C MP ####[facility] Awkxmzzguf7699[address] [place], [place] [address]Dr. Farhat Leal PROTIMEon 05-22-2022 INR Coag (PPP) [Relative time] 2.27 {INR} Normal [facility] Comment on above: Performed By: #### P T ####[facility] Hfjzksqwqw9588[address] [place], [place] [address]Dr. Farhat Leal INR GUIDELINES SEE BELOW Normal [facility] Comment on above: Result Comment: MALINA RED INR: 2.0 - 3.0 CONDITIONS NOT LISTED BELOW 2.5 - 3.5 FOR PROSTHETIC HEART VALVE REPLACEMENT 2.5 - 3.5 RECURRENT THROMBOSIS Performed By: #### P T ####[facility] Erycldcqtn940[address] [place], [place] [address]Dr. Farhat Leal PT Coag (PPP) [Time] 23.0 s Critically high 9.0-11.6 [facility] Comment on above: Performed By: #### P T ####[facility] Wxalmddvwm180[address] [place], [place] [address]Dr. Farhat Leal FK506 (TACROLIMUS) WHOLE BLO ODon 05-19-2022 Tacrolimus (FK506), Blood 7.8 ng/mL Normal 2.0-20.0 [facility] Comment on above: Result Comment: Trou gh (immediately following transplant) 15.0 . Trough (steady state, 2 weeks or more after transplant): 3.0 - 8.0 . Performed by LC-MS/MS technology. Performed By: #### F K506T ####[facility] Zkhoiquzqc499[address] [place], [place] [address]DrSkylar Leal CBC AUTO DIFFon 05-15-2022 BASO # 0.0 103/ul Normal 0.0-0.1 [facility] Comment on above: Performed By: #### C BC ####[facility] Evjyuzwfwn715[address] [place], [place] [address]DrSkylar Leal Basophils/100 WBC (Bld) 0.4 % Normal 0.2-2.0 [facility] Comment on above: Performed By: #### C BC ####[facility] Ivhklmdtme464[address] [place], [place] [address]DrSkylar Leal EO # 0.2 103/ul Normal 0.0-0.7 [facility] Comment on above: Performed By: #### C BC ####[facility] Vjlcaxmmsm2268[address] [place], [place] [address]DrSkylar Leal Eosinophils/100 WBC (Bld) 3.0 % Normal 0.9-7.0 [facility] Comment on above: Performed By: #### C BC ####[facility] Qkndlobijb9722[address] [place], [place] [address]DrSkylar Leal Erythrocyte distribution width (RBC) [Ratio] 15.7 % Critically high 11.0-15.0 [facility] Comment on above: Performed By: #### C BC ####[facility] Cyvlgukcxy4450[address] [place], [place] [address]DrSkylar Leal Hematocrit (Bld) [Volume fraction] 36.8 % Critically low 42.0-54.0 [facility] Comment on above: Performed By: #### C BC ####[facility] Orwxqvbjlj2750[address] [place], [place] [address]DrSkylar Leal Hemoglobin (Bld) [Mass/Vol] 12.4 g/dL Critically low 14.0-18.0 [facility] Comment on above: Performed By: #### C BC ####[facility] Hyxvsbiree9596 [place] [address]DrSkylar Leal IG # 0.01 10e3/ul Normal 0.00-0.03 [facility] Comment on above: Performed By: #### C BC ####[facility] Rrtrnaibdf357[address] [place], [place] [address]DrSkylar Leal IG % 0.1 % Normal 0.0-0.5 [facility] Comment on above: Performed By: #### C BC ####[facility] Ifxwklxqkz886[address] [place], [place] [address]DrSkylar Leal LYMPH # 2.4 103/ul Normal 1.2-3.8 [facility] Comment on above: Performed By: #### C BC ####[facility] Viteyoczkr5764[address] [place], [place] [address]DrSkylar Leal Lymphocytes/100 WBC (Bld) 35.6 % Normal 20.5-60.0 [facility] Comment on above: Performed By: #### C BC ####[facility] Ujfxkjhpkz[address] [place], [place] [address]DrSkylar Leal MANUAL DIFF REQ NO Normal [facility] Comment on above: Performed By: #### C BC ####[facility] Jpwqwnlmcz[address] [place], [place] [address]DrSkylar Leal MCH (RBC) [Entitic mass] 30.1 pg Normal 25.9-34.0 [facility] Comment on above: Performed By: #### C BC ####[facility] Kxoydzlvkd439[address] [address] [place], [place] [address]DrSkylar Leal MCHC (RBC) [Mass/Vol] 33.7 g/dL Normal 29.9-35.2 [facility] Comment on above: Performed By: #### C BC ####[facility] Qebccxwfqi758[address] [place], [place] [address]DrSkylar Leal MCV (RBC) [Entitic vol] 89.3 fL Normal 80.0-94.0 [facility] Comment on above: Performed By: #### C BC ####[facility] Ojxfelseij315[address] [place], [place] [address]DrSkylar Farhat Leal MONO # 0.7 103/ul Normal 0.3-0.8 [facility] Comment on above: Performed By: #### C BC ####[facility] Ainfjcfqza8969[address] [place], [place] [address]Dr. Farhat Leal Monocytes/100 WBC (Bld) 10.8 % Normal 1.7-12.0 [facility] Comment on above: Performed By: #### C BC ####[facility] Rajtbgnbug2618[address] [place], [place] [address]Dr. Farhat Leal NEUT # 3.4 103/ul Normal 1.4-6.5 [facility] Comment on above: Performed By: #### C BC ####[facility] Rssosspidu4309[address] [place], [place] [address]Dr. Farhat Leal Neutrophils/100 WBC (Bld) 50.1 % Normal 43.0-75.0 [facility] Comment on above: Performed By: #### C BC ####[facility] Yeeilwspuo0679[address] [place], [place] [address]Dr. Farhat Leal Platelet mean volume (Bld) [Entitic vol] 10.2 fL Normal 9.5-13.5 [facility] Comment on above: Performed By: #### C BC ####[facility] Zqqronuaot69217[address] [place], [place] [address]Dr. Farhat Leal PLT 190 103/ul Normal 150-450 [facility] Comment on above: Performed By: #### C BC ####[facility] Pectvvsuva820[address] [place], [place] [address]Dr. Farhat Elvis RBC 4.12 106/ul Critically low 4.70-6.10 [facility] Comment on above: Performed By: #### C BC ####[facility] Hckswnimzr412[address] [place], [place] [address]Dr. Farhat Leal WBC 6.8 103/ul Normal 4.0-11.0 [facility] Comment on above: Performed By: #### C BC ####[facility] Ngqmdjullf39[address] [place] [address]Dr. Farhat Leal PROF 14(COMP METB)on 023 Albumin [Mass/Vol] 2.8 g/dL Critically low 3.4-5.0 [facility] Comment on above: Performed By: #### C MP ####[facility] Pvyeyechvj055[address] [place], [place] [address]Dr. Farhat Leal Albumin/Globulin [Mass ratio] 0.9 {ratio} Normal [facility] Comment on above: Performed By: #### C MP ####[facility] Kblvzjfhbz025[address] [place], [place] [address]Dr. Farhat Leal ALP [Catalytic activity/Vol] 66 U/L Normal 46-116 [facility] Comment on above: Performed By: #### C MP ####[facility] Cbfwpybyqd0420[address] [place], [place] [address]Dr. Farhat Leal ALT [Catalytic activity/Vol] 15 U/L Critically low 16-63 [facility] Comment on above: Performed By: #### C MP ####[facility] Umblgebzyj192473 [address] [place], [place] [address]Dr. Farhat Leal Anion gap [Moles/Vol] 11.1 mmol/L Normal [facility] Comment on above: Performed By: #### C MP ####[facility] Ujywcpjqqu0159[address] [place], [place] [address]Dr. Farhat Leal AST [Catalytic activity/Vol] 14 U/L Critically low 15-37 [facility] Comment on above: Performed By: #### C MP ####[facility] Nyqirxsnzo678[address] [place], [place] [address]Dr. Farhat Leal Bilirubin [Mass/Vol] 0.8 mg/dL Normal 0.2-1.0 [facility] Comment on above: Performed By: #### C MP ####[facility] Lckkzchede2080[address] [place], [place] [address]Dr. Farhat Leal Calcium [Mass/Vol] 8.9 mg/dL Normal 8.5-10.1 [facility] Comment on above: Performed By: #### C MP ####[facility] Hrrnntiwgo4[address] [place] [address]Dr. Farhat Elvis Chloride [Moles/Vol] 101 mmol/L Normal 98-107 [facility] Comment on above: Performed By: #### C MP ####[facility] Wbytcaysbk32[address] [place] [address]Dr. Farhat Elvis CO2 [Moles/Vol] 28.2 mmol/L Normal 21.0-32.0 [facility] Comment on above: Performed By: #### C MP ####[facility] Whayaskayh387[address] [place], [place] [address]Dr. Madelynlorri Elvis Creatinine [Mass/Vol] 1.23 mg/dL Normal 0.70-1.30 [facility] Comment on above: Performed By: #### C MP ####[facility] Rtyifxwrof708[address] [place], [place] [address]Dr. Farhat Elvis EGFR-AF MONTENEGRIN >60 Normal >=60 [facility] Comment on above: Performed By: #### C MP ####[facility] Mstotgjxkt4369[address] [place], [place] [address]Dr. Madelynlorri Elvis EGFR-NON AF MONTENEGRIN 57 mL/min/1.73m2 Critically low >=60 [facility] Comment on above: Performed By: #### C MP ####[facility] Zmgdgbnmbw0252 [place] [address]Dr. Farhat Leal Globulin (S) [Mass/Vol] 3.2 g/dL Normal [facility] Comment on above: Performed By: #### C MP ####[facility] Bqxkgvufkb00[address] [place] [phone]. Farhat Leal Glucose [Mass/Vol] 333 mg/dL Critically high 74-106 [facility] Comment on above: Performed By: #### C MP ####[facility] Upebotsuvk4084 [place] [address]Dr. Farhat Leal Potassium [Moles/Vol] 4.3 mmol/L Normal 3.5-5.1 [facility] Comment on above: Performed By: #### C MP ####[facility] Kxnhhhdpwg5660[address] [place], [place] [address]Dr. Farhat Leal Protein [Mass/Vol] 6.0 g/dL Critically low 6.4-8.2 [facility] Comment on above: Performed By: #### C MP ####[facility] Xiuwvukawh94[address] [place], [place] [address]Dr. Farhat Leal Sodium [Moles/Vol] 136 mmol/L Normal 136-145 [facility] Comment on above: Performed By: #### C MP ####[facility] Fwhpcjxzxq445[address] [place], [place] [address]Dr. Farhat Leal Urea nitrogen [Mass/Vol] 58.0 mg/dL Critically high 7.0-18.0 [facility] Comment on above: Performed By: #### C MP ####[facility] Oqlvsrheoc346[address] [place], [place] [address]Dr. Farhat Leal Urea nitrogen/Creatinine [Mass ratio] 47.2 mg/mg Normal [facility] Comment on above: Performed By: #### C MP ####[facility] Imnlsokseu368[address] [place], [place] [address]Dr. Farhat Leal PROTIMEon 05-13-2022 INR Coag (PPP) [Relative time] 3.51 {INR} Normal [facility] Comment on above: Performed By: #### P T ####[facility] Bxvesbddgl4575[address] [place], [place] [address]Dr. Farhat Leal INR GUIDELINES SEE BELOW Normal [facility] Comment on above: Result Comment: MALINA RED INR: 2.0 - 3.0 CONDITIONS NOT LISTED BELOW 2.5 - 3.5 FOR PROSTHETIC HEART VALVE REPLACEMENT 2.5 - 3.5 RECURRENT THROMBOSIS Performed By: #### P T ####[facility] Cjzrvbemgc349[address] [place], [place] [address]Dr. Farhat Leal PT Coag (PPP) [Time] 34.7 s Critically high 9.0-11.6 [facility] Comment on above: Performed By: #### P T ####[facility] Tudvfolgbh324[address] [place], [place] [address]Dr. Farhat Leal FK506 (TACROLIMUS) WHOLE BLO ODon 05-11-2022 Tacrolimus (FK506), Blood 14.4 ng/mL Normal 2.0-20.0 [facility] Comment on above: Result Comment: Trou gh (immediately following transplant) 15.0 . Trough (steady state, 2 weeks or more after transplant): 3.0 - 8.0 . Performed by LC-MS/MS technology. Performed By: #### F K506T ####[facility] Jesyejzymv376[address] [place], [place] [address]Dr. Farhat Leal CBC AUTO DIFFon 05-08-2022 BASO # 0.0 103/ul Normal 0.0-0.1 [facility] Comment on above: Performed By: #### C BC ####[facility] Zfrmvrltfk110[address] [place], [place] [address]Dr. Farhat Leal Basophils/100 WBC (Bld) 0.5 % Normal 0.2-2.0 [facility] Comment on above: Performed By: #### C BC ####[facility] Ldqypxsjpc785[address] [place], [place] [address]Dr. Farhat Leal EO # 0.2 103/ul Normal 0.0-0.7 [facility] Comment on above: Performed By: #### C BC ####[facility] Hwbqzrgqkq317[address] [place], [place] [address]Dr. Farhat Leal Eosinophils/100 WBC (Bld) 2.9 % Normal 0.9-7.0 [facility] Comment on above: Performed By: #### C BC ####[facility] Hltyaqlvuw260[address] [place], [place] [address]Dr. Farhat Leal Erythrocyte distribution width (RBC) [Ratio] 16.0 % Critically high 11.0-15.0 [facility] Comment on above: Performed By: #### C BC ####[facility] Gvogbokbmq412[address] [place], [place] [address]Dr. Farhat Leal Hematocrit (Bld) [Volume fraction] 35.7 % Critically low 42.0-54.0 [facility] Comment on above: Performed By: #### C BC ####[facility] [address]nx[address]cydp26[address] [place] [phone]. Farhat Leal Hemoglobin (Bld) [Mass/Vol] 11.9 g/dL Critically low 14.0-18.0 [facility] Comment on above: Performed By: #### C BC ####[facility] I[address]qdofy4[address] [place] [phone]. Farhat Leal IG # 0.03 10e3/ul Normal 0.00-0.03 [facility] Comment on above: Performed By: #### C BC ####[facility] Ybslmatlvw37[address] [place] [address]Dr. Farhat Leal IG % 0.5 % Normal 0.0-0.5 [facility] Comment on above: Performed By: #### C BC ####[facility] T[address]cwdpj12[address] [place] [address]Dr. Farhat Elvis LYMPH # 2.4 103/ul Normal 1.2-3.8 [facility] Comment on above: Performed By: #### C BC ####[facility] K[address]udbuw[address] [place] [address]Dr. Farhat Elvis Lymphocytes/100 WBC (Bld) 37.8 % Normal 20.5-60.0 [facility] Comment on above: Performed By: #### C BC ####[facility] [address]fxd[address] [place] [phone]. Madelynlorri Leal MANUAL DIFF REQ NO Normal [facility] Comment on above: Performed By: #### C BC ####[facility] Hjrixbnwii5[address] [place] [phone]. Farhat Leal MCH (RBC) [Entitic mass] 30.4 pg Normal 25.9-34.0 [facility] Comment on above: Performed By: #### C BC ####[facility] Uqfqtvddia9[address] [place] [phone]. Farhat Elvis MCHC (RBC) [Mass/Vol] 33.3 g/dL Normal 29.9-35.2 [facility] Comment on above: Performed By: #### C BC ####[facility] Nswydtsefo8[address] [place] [phone]. Farhat Leal MCV (RBC) [Entitic vol] 91.1 fL Normal 80.0-94.0 [facility] Comment on above: Performed By: #### C BC ####[facility] Pxfjgvsnhv020[address] [place] [phone]. Farhat Leal MONO # 0.7 103/ul Normal 0.3-0.8 [facility] Comment on above: Performed By: #### C BC ####[facility] Nhmztczfaw37[address] [place] [phone]. Farhat Leal Monocytes/100 WBC (Bld) 11.1 % Normal 1.7-12.0 [facility] Comment on above: Performed By: #### C BC ####[facility] Olswnlnuxn[address] [place], [place] [id number]. Farhat Leal NEUT # 2.9 103/ul Normal 1.4-6.5 [facility] Comment on above: Performed By: #### C BC ####[facility] [address]emlaf26[address] [place] [phone]. Farhat Leal Neutrophils/100 WBC (Bld) 47.2 % Normal 43.0-75.0 [facility] Comment on above: Performed By: #### C BC ####[facility] Enkhgdhqom99[address] [place] [phone]. Farhat Leal Platelet mean volume (Bld) [Entitic vol] 11.0 fL Normal 9.5-13.5 [facility] Comment on above: Performed By: #### C BC ####[facility] Fbohhcjfzx6405 [place] [phone]. Farhat Leal PLT 191 103/ul Normal 150-450 [facility] Comment on above: Performed By: #### C BC ####[facility] Pjbdstfkzf60[address] [place] [phone]. Farhat Elvis RBC 3.92 106/ul Critically low 4.70-6.10 [facility] Comment on above: Performed By: #### C BC ####[facility] Emnbtutuog22[address] [place] [address]Dr. Farhat Leal WBC 6.2 103/ul Normal 4.0-11.0 [facility] Comment on above: Performed By: #### C BC ####[facility] Rdkhnwzejy44[address] [place] [address]Dr. Farhat Leal MAGNESIUMon 05-08-2022 Magnesium [Mass/Vol] 1.9 mg/dL Normal 1.8-2.4 [facility] Comment on above: Performed By: #### P HOS, MG ####[facility] Scvlwqgcrq38[address] [place] [address]Dr. Farhat Leal PHOSPHORUSon 05-08-2022 Phosphate [Mass/Vol] 4.5 mg/dL Normal 2.6-4.7 [facility] Comment on above: Performed By: #### P HOS, MG ####[facility] Shcnmpbwhy057[address] [place], [place] [address]Dr. Farhat Leal PROF 14(COMP METB)on 023 Albumin [Mass/Vol] 2.9 g/dL Critically low 3.4-5.0 [facility] Comment on above: Performed By: #### C MP ####[facility] Gmrqdgcqtk2826[address] [place], [place] [address]Dr. Farhta Leal Albumin/Globulin [Mass ratio] 0.9 {ratio} Normal [facility] Comment on above: Performed By: #### C MP ####[facility] Fjwfflzczg670[address] [place], [place] [address]Dr. Farhat Leal ALP [Catalytic activity/Vol] 70 U/L Normal 46-116 [facility] Comment on above: Performed By: #### C MP ####[facility] Kahrtjapcx9727[address] [place], [place] [address]Dr. Farhat Leal ALT [Catalytic activity/Vol] 13 U/L Critically low 16-63 [facility] Comment on above: Performed By: #### C MP ####[facility] Eavakvlxcy525[address] [place], [place] [address]Dr. Farhat Leal Anion gap [Moles/Vol] 14.6 mmol/L Normal [facility] Comment on above: Performed By: #### C MP ####[facility] Wlxdpnqqux0088 [place] [address]Dr. Farhat Leal AST [Catalytic activity/Vol] 17 U/L Normal 15-37 [facility] Comment on above: Performed By: #### C MP ####[facility] Yrliiulzva17[address] [place] [address]Dr. Madelynlorri Elvis Bilirubin [Mass/Vol] 0.8 mg/dL Normal 0.2-1.0 [facility] Comment on above: Performed By: #### C MP ####[facility] Vgtvcszvxz7035[address] [place], [place] [address]Dr. Farhat Leal Calcium [Mass/Vol] 8.9 mg/dL Normal 8.5-10.1 [facility] Comment on above: Performed By: #### C MP ####[facility] Qqlsdgbhhk633[address] [place], [place] [address]Dr. Farhat Leal Chloride [Moles/Vol] 102 mmol/L Normal 98-107 [facility] Comment on above: Performed By: #### C MP ####[facility] Kkqmvuillj8[address] [place], [place] [address]Dr. Farhat Leal CO2 [Moles/Vol] 22.9 mmol/L Normal 21.0-32.0 [facility] Comment on above: Performed By: #### C MP ####[facility] Jtxqvklfky96[address] [place], [place] [address]Dr. Farhat Leal Creatinine [Mass/Vol] 1.20 mg/dL Normal 0.70-1.30 [facility] Comment on above: Performed By: #### C MP ####[facility] Wjkwjfajnn9713[address] [place], [place] [address]Dr. Farhat Leal EGFR-AF MONTENEGRIN >60 Normal >=60 [facility] Comment on above: Performed By: #### C MP ####[facility] Fiwbtcvivg0710[address] [place], [place] [address]Dr. Farhat Leal EGFR-NON AF MONTENEGRIN 59 mL/min/1.73m2 Critically low >=60 [facility] Comment on above: Performed By: #### C MP ####[facility] Kzqdjcywwy6626 [place] [address]Dr. Farhat Leal Globulin (S) [Mass/Vol] 3.1 g/dL Normal [facility] Comment on above: Performed By: #### C MP ####[facility] Buegbtspwu36[address] [place] [phone]. Farhat Leal Glucose [Mass/Vol] 447 mg/dL Critically high 74-106 [facility] Comment on above: Performed By: #### C MP ####[facility] Ipgoosicvh0288 [place] [phone]. Farhat Elvis Potassium [Moles/Vol] 4.5 mmol/L Normal 3.5-5.1 [facility] Comment on above: Performed By: #### C MP ####[facility] Irgddcrgmx2256 [place] [address]Dr. Farhat Leal Protein [Mass/Vol] 6.0 g/dL Critically low 6.4-8.2 [facility] Comment on above: Performed By: #### C MP ####[facility] Fclsomksjs[address] [place], [place] [address]Dr. Farhat Leal Sodium [Moles/Vol] 135 mmol/L Critically low 136-145 [facility] Comment on above: Performed By: #### C MP ####[facility] Gphpaficpb13[address] [place] [address]Dr. Farhat Leal Urea nitrogen [Mass/Vol] 52.0 mg/dL Critically high 7.0-18.0 [facility] Comment on above: Performed By: #### C MP ####[facility] Kgctdiltid5339[address] [place], [place] [address]Dr. Farhat Leal Urea nitrogen/Creatinine [Mass ratio] 43.3 mg/mg Normal [facility] Comment on above: Performed By: #### C MP ####[facility] Waxwreuvvt[address] [place] [phone]. Farhat Leal PROTIMEon 05-06-2022 INR Coag (PPP) [Relative time] 2.25 {INR} Normal [facility] Comment on above: Performed By: #### P T ####[facility] Yrteoxwjbx77[address] [place] [address]Dr. Farhat Leal INR GUIDELINES SEE BELOW Normal [facility] Comment on above: Result Comment: MALINA RED INR: 2.0 - 3.0 CONDITIONS NOT LISTED BELOW 2.5 - 3.5 FOR PROSTHETIC HEART VALVE REPLACEMENT 2.5 - 3.5 RECURRENT THROMBOSIS Performed By: #### P T ####[facility] Prubsqurdf6544[address] [place], [place] [address]Dr. Farhat Leal PT Coag (PPP) [Time] 22.8 s Critically high 9.0-11.6 [facility] Comment on above: Performed By: #### P T ####[facility] Cdjvmnhuhu232[address] [place], [place] [address]Dr. Farhat Leal FK506 (TACROLIMUS) WHOLE BLO ODon 05-04-2022 Tacrolimus (FK506), Blood 10.4 ng/mL Normal 2.0-20.0 [facility] Comment on above: Result Comment: Trou gh (immediately following transplant) 15.0 . Trough (steady state, 2 weeks or more after transplant): 3.0 - 8.0 . Performed by LC-MS/MS technology. Performed By: #### F K506T ####[facility] Iillkwsjtd585[address] [place], [place] [address]Dr. Farhat Leal CBC AUTO DIFFon 05-01-2022 BASO # 0.1 103/ul Normal 0.0-0.1 [facility] Comment on above: Performed By: #### C BC ####[facility] Ysiqmsaxqd150[address] [place], [place] [address]Dr. Farhat Leal Basophils/100 WBC (Bld) 0.7 % Normal 0.2-2.0 [facility] Comment on above: Performed By: #### C BC ####[facility] Ybmbwgcein2733[address] [place], [place] [address]Dr. Farhat Leal EO # 0.2 103/ul Normal 0.0-0.7 [facility] Comment on above: Performed By: #### C BC ####[facility] Gzrafwzmau28[address] [place] [address]Dr. Farhat Leal Eosinophils/100 WBC (Bld) 3.2 % Normal 0.9-7.0 [facility] Comment on above: Performed By: #### C BC ####[facility] Jrhawknazg7[address] [place], [place] [address]Dr. Farhat Leal Erythrocyte distribution width (RBC) [Ratio] 16.4 % Critically high 11.0-15.0 [facility] Comment on above: Performed By: #### C BC ####[facility] Pzzvepclaw585[address] [place], [place] [address]Dr. Farhat Leal Hematocrit (Bld) [Volume fraction] 35.1 % Critically low 42.0-54.0 [facility] Comment on above: Performed By: #### C BC ####[facility] Jportcxvdr2632[address] [place], [place] [address]Dr. Farhat Leal Hemoglobin (Bld) [Mass/Vol] 11.6 g/dL Critically low 14.0-18.0 [facility] Comment on above: Performed By: #### C BC ####[facility] Ewimnakryx9464[address] [place], [place] [address]Dr. Farhat Leal IG # 0.03 10e3/ul Normal 0.00-0.03 [facility] Comment on above: Performed By: #### C BC ####[facility] Locsqzhlct9926[address] [place], [place] [address]Dr. Farhat Leal IG % 0.4 % Normal 0.0-0.5 [facility] Comment on above: Performed By: #### C BC ####[facility] Irihhwzbee8220[address] [place], [place] [address]Dr. Farhat Leal LYMPH # 2.4 103/ul Normal 1.2-3.8 [facility] Comment on above: Performed By: #### C BC ####[facility] Wjoirgvixq6665[address] [place], [place] [address]Dr. Farhat Leal Lymphocytes/100 WBC (Bld) 35.1 % Normal 20.5-60.0 [facility] Comment on above: Performed By: #### C BC ####[facility] S[address]ovojrrj[address] [place] [phone]. Farhat Leal MANUAL DIFF REQ NO Normal [facility] Comment on above: Performed By: #### C BC ####[facility] Yvkhsijzeb33[address] [place] [phone]. Farhat Leal MCH (RBC) [Entitic mass] 29.4 pg Normal 25.9-34.0 [facility] Comment on above: Performed By: #### C BC ####[facility] Fwlfkysilz50[address] [place] [phone]. Farhat Leal MCHC (RBC) [Mass/Vol] 33.0 g/dL Normal 29.9-35.2 [facility] Comment on above: Performed By: #### C BC ####[facility] Uixcudoonl1689[address] [place], [place] [address]Dr. Farhat Leal MCV (RBC) [Entitic vol] 88.9 fL Normal 80.0-94.0 [facility] Comment on above: Performed By: #### C BC ####[facility] Xriywtucls[address] [place], [place] [id number]. Farhat Leal MONO # 0.7 103/ul Normal 0.3-0.8 [facility] Comment on above: Performed By: #### C BC ####[facility] Ivllvbfwcn53[address] [place], [place] [address]Dr. Farhat Leal Monocytes/100 WBC (Bld) 9.6 % Normal 1.7-12.0 [facility] Comment on above: Performed By: #### C BC ####[facility] Kmnzxondhn[address] [place], [place] [address]Dr. Farhat Leal NEUT # 3.5 103/ul Normal 1.4-6.5 [facility] Comment on above: Performed By: #### C BC ####[facility] Lpkfyhbjmz87[address] [place], [place] [id number]. Farhat Leal Neutrophils/100 WBC (Bld) 51.0 % Normal 43.0-75.0 [facility] Comment on above: Performed By: #### C BC ####[facility] Fcuovdvvlc88[address] [place] [address]Dr. Farhat Leal Platelet mean volume (Bld) [Entitic vol] 10.3 fL Normal 9.5-13.5 [facility] Comment on above: Performed By: #### C BC ####[facility] Zzzmbprvfc5[address] [place] [address]Dr. Farhat Leal PLT 184 103/ul Normal 150-450 [facility] Comment on above: Performed By: #### C BC ####[facility] Mijlrcdysj96[address] [place] [address]Dr. Farhat Leal RBC 3.95 106/ul Critically low 4.70-6.10 [facility] Comment on above: Performed By: #### C BC ####[facility] Bypssdhvms[address] [place] [address]Dr. Farhat Leal WBC 7.0 103/ul Normal 4.0-11.0 [facility] Comment on above: Performed By: #### C BC ####[facility] Nsulyzoevk[address] [place] [address]Dr. Farhat Leal PROF 14(COMP METB)on 023 Albumin [Mass/Vol] 2.6 g/dL Critically low 3.4-5.0 [facility] Comment on above: Performed By: #### C MP ####[facility] Llftmbcllc[address] [place] [address]Dr. Farhat Leal Albumin/Globulin [Mass ratio] 0.9 {ratio} Normal [facility] Comment on above: Performed By: #### C MP ####[facility] Lmentjbjej53[address] [place] [address]Dr. Farhat Leal ALP [Catalytic activity/Vol] 53 U/L Normal 46-116 [facility] Comment on above: Performed By: #### C MP ####[facility] Ggxybhmqsm88[address] [place] [address]Dr. Farhat Leal ALT [Catalytic activity/Vol] 17 U/L Normal 16-63 [facility] Comment on above: Performed By: #### C MP ####[facility] Ovhoonfkph85[address] [place] [phone]. Farhat Leal Anion gap [Moles/Vol] 10.0 mmol/L Normal [facility] Comment on above: Performed By: #### C MP ####[facility] Bwxsdrccjv6361 [place] [phone]. Farhat Leal AST [Catalytic activity/Vol] 19 U/L Normal 15-37 [facility] Comment on above: Performed By: #### C MP ####[facility] Cbwzeevomr[address] [place], [place] [id number]. Farhat Leal Bilirubin [Mass/Vol] 0.5 mg/dL Normal 0.2-1.0 [facility] Comment on above: Performed By: #### C MP ####[facility] Dvfyxfjjrd635[address] [place], [place] [address]Dr. Farhat Leal Calcium [Mass/Vol] 8.4 mg/dL Critically low 8.5-10.1 [facility] Comment on above: Performed By: #### C MP ####[facility] Vsxbrdlyyr[address] [place], [place] [address]Dr. Farhat Leal Chloride [Moles/Vol] 108 mmol/L Critically high 98-107 [facility] Comment on above: Performed By: #### C MP ####[facility] Inxobwjxls158[address] [place], [place] [address]Dr. Farhat Leal CO2 [Moles/Vol] 26.9 mmol/L Normal 21.0-32.0 [facility] Comment on above: Performed By: #### C MP ####[facility] Oqkodcsibj[address] [place], [place] [address]Dr. Farhat Leal Creatinine [Mass/Vol] 1.20 mg/dL Normal 0.70-1.30 [facility] Comment on above: Performed By: #### C MP ####[facility] Xijfsnjupq95[address] [place], [place] [id number]. Farhat Leal EGFR-AF MONTENEGRIN >60 Normal >=60 [facility] Comment on above: Performed By: #### C MP ####[facility] Cjyizupwzx9[address] [place] [phone]. Farhat Leal EGFR-NON AF MONTENEGRIN 59 mL/min/1.73m2 Critically low >=60 [facility] Comment on above: Performed By: #### C MP ####[facility] Unnhtjxyai76[address] [place] [phone]. Farhat Leal Globulin (S) [Mass/Vol] 3.0 g/dL Normal [facility] Comment on above: Performed By: #### C MP ####[facility] Ltupvejvds5[address] [place] [phone]. Farhat Leal Glucose [Mass/Vol] 213 mg/dL Critically high 74-106 [facility] Comment on above: Performed By: #### C MP ####[facility] Mjcvwqqrqt2400 [place] [phone]. Farhat Leal Potassium [Moles/Vol] 3.9 mmol/L Normal 3.5-5.1 [facility] Comment on above: Performed By: #### C MP ####[facility] Qijgtispif3768 [place] [phone]. Farhat Leal Protein [Mass/Vol] 5.6 g/dL Critically low 6.4-8.2 [facility] Comment on above: Performed By: #### C MP ####[facility] Crmzreowsl5562 [place] [phone]. Farhat Leal Sodium [Moles/Vol] 141 mmol/L Normal 136-145 [facility] Comment on above: Performed By: #### C MP ####[facility] Awibnnhhnh2662 [place] [phone]. Farhat Leal Urea nitrogen [Mass/Vol] 61.0 mg/dL Critically high 7.0-18.0 [facility] Comment on above: Performed By: #### C MP ####[facility] Puptrooejc0754 [place] [phone]. Farhat Leal Urea nitrogen/Creatinine [Mass ratio] 50.8 mg/mg Normal [facility] Comment on above: Performed By: #### C MP ####[facility] Lkdooihjoy02[address] [place], [place] [address]Dr. Farhat Leal FK506 (TACROLIMUS) WHOLE BLO ODon 04-27-2022 Tacrolimus (FK506), Blood 16.5 ng/mL Normal 2.0-20.0 [facility] Comment on above: Result Comment: Trou gh (immediately following transplant) 15.0 . Trough (steady state, 2 weeks or more after transplant): 3.0 - 8.0 . Performed by LC-MS/MS technology. Performed By: #### F K506T ####[facility] Tfipinkoky[address] [place], [place] [address]Dr. Farhat Leal CBC AUTO DIFFon 04-24-2022 BASO # 0.0 103/ul Normal 0.0-0.1 [facility] Comment on above: Performed By: #### C BC ####[facility] Mkgtnazjrl0916[address] [place], [place] [address]Dr. Farhat Leal Basophils/100 WBC (Bld) 0.5 % Normal 0.2-2.0 [facility] Comment on above: Performed By: #### C BC ####[facility] Udrfuidcfu37[address] [place], [place] [address]Dr. Farhat Leal EO # 0.2 103/ul Normal 0.0-0.7 [facility] Comment on above: Performed By: #### C BC ####[facility] Ccvwgbvqde060[address] [place], [place] [address]Dr. Farhat Leal Eosinophils/100 WBC (Bld) 3.1 % Normal 0.9-7.0 [facility] Comment on above: Performed By: #### C BC ####[facility] Widtkdjsip846[address] [place], [place] [address]Dr. Farhat Leal Erythrocyte distribution width (RBC) [Ratio] 16.3 % Critically high 11.0-15.0 [facility] Comment on above: Performed By: #### C BC ####[facility] Txievrqrpi69[address] [place], [place] [address]Dr. Farhat Leal Hematocrit (Bld) [Volume fraction] 34.0 % Critically low 42.0-54.0 [facility] Comment on above: Performed By: #### C BC ####[facility] Mfvvkzfdxa5562 [place] [phone]. Farhat Leal Hemoglobin (Bld) [Mass/Vol] 11.6 g/dL Critically low 14.0-18.0 [facility] Comment on above: Performed By: #### C BC ####[facility] Cxeraemaxw8065 [place] [phone]. Farhat Leal IG # 0.02 10e3/ul Normal 0.00-0.03 [facility] Comment on above: Performed By: #### C BC ####[facility] Tmpwqgrcyr4393 [place] [phone]. Farhat Elvis IG % 0.4 % Normal 0.0-0.5 [facility] Comment on above: Performed By: #### C BC ####[facility] Hzwhyxyvec6945[address] [place], [place] [address]Dr. Farhat Elvis LYMPH # 2.2 103/ul Normal 1.2-3.8 [facility] Comment on above: Performed By: #### C BC ####[facility] Wbzbpjcihl4904 [place] [phone]. Farhat Elvis Lymphocytes/100 WBC (Bld) 38.8 % Normal 20.5-60.0 [facility] Comment on above: Performed By: #### C BC ####[facility] Srkglbgiuf5504 [place] [phone]. Madelynlorri Leal MANUAL DIFF REQ NO Normal [facility] Comment on above: Performed By: #### C BC ####[facility] Xmrwqrkpsh7[address] [place] [phone]. Farhat Elvis MCH (RBC) [Entitic mass] 30.1 pg Normal 25.9-34.0 [facility] Comment on above: Performed By: #### C BC ####[facility] Nygkyewccm0658 [place] [phone]. Farhta Elvis MCHC (RBC) [Mass/Vol] 34.1 g/dL Normal 29.9-35.2 [facility] Comment on above: Performed By: #### C BC ####[facility] Tnfdzuvuwp5040 [place] [phone]. Farhat Leal MCV (RBC) [Entitic vol] 88.1 fL Normal 80.0-94.0 [facility] Comment on above: Performed By: #### C BC ####[facility] Usvteqllpi18[address] [place] [phone]. Farhat Leal MONO # 0.6 103/ul Normal 0.3-0.8 [facility] Comment on above: Performed By: #### C BC ####[facility] Yzruqfeerw13[address] [place] [phone]. Farhat Leal Monocytes/100 WBC (Bld) 10.8 % Normal 1.7-12.0 [facility] Comment on above: Performed By: #### C BC ####[facility] Tikvgcdjeq[address] [place], [place] [address]Dr. Farhat Leal NEUT # 2.6 103/ul Normal 1.4-6.5 [facility] Comment on above: Performed By: #### C BC ####[facility] Myoqqrdpwj4[address] [place], [place] [address]Dr. Farhat Leal Neutrophils/100 WBC (Bld) 46.4 % Normal 43.0-75.0 [facility] Comment on above: Performed By: #### C BC ####[facility] Phxtbdvlkd654[address] [place], [place] [address]Dr. Farhat Leal Platelet mean volume (Bld) [Entitic vol] 10.9 fL Normal 9.5-13.5 [facility] Comment on above: Performed By: #### C BC ####[facility] Zedpsguhya16[address] [place] [phone]. Farhat Leal PLT 159 103/ul Normal 150-450 [facility] Comment on above: Performed By: #### C BC ####[facility] Jajizjqhuy6[address] [place] [phone]. Farhat Leal RBC 3.86 106/ul Critically low 4.70-6.10 [facility] Comment on above: Performed By: #### C BC ####[facility] Jnenyyshhv1446 [place] [address]Dr. Farhat Leal WBC 5.6 103/ul Normal 4.0-11.0 [facility] Comment on above: Performed By: #### C BC ####[facility] Txefwvnopw15[address] [place] [address]Dr. Farhat Leal PROTIMEon 04-24-2022 INR Coag (PPP) [Relative time] 3.23 {INR} Normal [facility] Comment on above: Performed By: #### P T ####[facility] Jexbxdptuz86[address] [place], [place] [address]Dr. Farhat Leal INR GUIDELINES SEE BELOW Normal [facility] Comment on above: Result Comment: MALINA RED INR: 2.0 - 3.0 CONDITIONS NOT LISTED BELOW 2.5 - 3.5 FOR PROSTHETIC HEART VALVE REPLACEMENT 2.5 - 3.5 RECURRENT THROMBOSIS Performed By: #### P T ####[facility] Bfnxcsyvnn90[address] [place], [place] [address]Dr. Farhat Leal PT Coag (PPP) [Time] 32.0 s Critically high 9.0-11.6 [facility] Comment on above: Performed By: #### P T ####[facility] Czgxghmogg3[address] [place], [place] [address]Dr. Farhat Leal FK506 (TACROLIMUS) WHOLE BLO ODon 04-20-2022 Tacrolimus (FK506), Blood 13.9 ng/mL Normal 2.0-20.0 [facility] Comment on above: Result Comment: Trou gh (immediately following transplant) 15.0 . Trough (steady state, 2 weeks or more after transplant): 3.0 - 8.0 . Performed by LC-MS/MS technology. Performed By: #### F K506T ####[facility] Kbvlgsvqkz18[address] [place], [place] [address]Dr. Farhat Leal CBC AUTO DIFFon 04-17-2022 BASO # 0.0 103/ul Normal 0.0-0.1 [facility] Comment on above: Performed By: #### C BC ####[facility] Lqbasgyttw195[address] [place], [place] [address]Dr. Farhat Leal Basophils/100 WBC (Bld) 0.4 % Normal 0.2-2.0 [facility] Comment on above: Performed By: #### C BC ####[facility] Qxhgiktspj1433 [place] [address]Dr. Farhat Leal EO # 0.2 103/ul Normal 0.0-0.7 [facility] Comment on above: Performed By: #### C BC ####[facility] Zynqdeqlby8530 [place] [address]Dr. Farhat Leal Eosinophils/100 WBC (Bld) 2.8 % Normal 0.9-7.0 [facility] Comment on above: Performed By: #### C BC ####[facility] Nzgjdtqevy6126 [place] [address]Dr. Farhat Leal Erythrocyte distribution width (RBC) [Ratio] 16.1 % Critically high 11.0-15.0 [facility] Comment on above: Performed By: #### C BC ####[facility] Dhgvfqsfhb4605 [place] [address]Dr. Farhat Leal Hematocrit (Bld) [Volume fraction] 35.7 % Critically low 42.0-54.0 [facility] Comment on above: Performed By: #### C BC ####[facility] Gbgshqfaov4[address] [place] [address]Dr. Farhat Leal Hemoglobin (Bld) [Mass/Vol] 12.2 g/dL Critically low 14.0-18.0 [facility] Comment on above: Performed By: #### C BC ####[facility] Ylziimbmtw9215 [place] [address]Dr. Farhat Leal IG # 0.03 10e3/ul Normal 0.00-0.03 [facility] Comment on above: Performed By: #### C BC ####[facility] Opivekthpl9645 [place] [address]Dr. Farhat Leal IG % 0.4 % Normal 0.0-0.5 [facility] Comment on above: Performed By: #### C BC ####[facility] Mvzvzlfsyj1337 [place] [phone]. Farhat Elvis LYMPH # 2.4 103/ul Normal 1.2-3.8 [facility] Comment on above: Performed By: #### C BC ####[facility] Jznmphdnoz83[address] [place] [phone]. Farhat Elvis Lymphocytes/100 WBC (Bld) 36.1 % Normal 20.5-60.0 [facility] Comment on above: Performed By: #### C BC ####[facility] Zbpcuodiky6[address] [place] [address]Dr. Madelynlorri Leal MANUAL DIFF REQ NO Normal [facility] Comment on above: Performed By: #### C BC ####[facility] Fshbhlouxj4042 [place] [address]Dr. Farhat Elvis MCH (RBC) [Entitic mass] 30.3 pg Normal 25.9-34.0 [facility] Comment on above: Performed By: #### C BC ####[facility] Qpuqfqxcub05[address] [place] [address]Dr. Farhat Elvis MCHC (RBC) [Mass/Vol] 34.2 g/dL Normal 29.9-35.2 [facility] Comment on above: Performed By: #### C BC ####[facility] Unkomwxcfu5220 [place] [address]Dr. Madelynlorri Leal MCV (RBC) [Entitic vol] 88.6 fL Normal 80.0-94.0 [facility] Comment on above: Performed By: #### C BC ####[facility] Bwdoelapqw9[address] [place] [phone]. Madelynlorri Leal MONO # 0.7 103/ul Normal 0.3-0.8 [facility] Comment on above: Performed By: #### C BC ####[facility] Bfsnagefxr37[address] [place] [address]Dr. Madelynlorri Leal Monocytes/100 WBC (Bld) 10.1 % Normal 1.7-12.0 [facility] Comment on above: Performed By: #### C BC ####[facility] Xaghxclrxn0034 [place] [phone]. Farhat Leal NEUT # 3.4 103/ul Normal 1.4-6.5 [facility] Comment on above: Performed By: #### C BC ####[facility] Onzlstgopi7109 [place] [phone]. Farhat Leal Neutrophils/100 WBC (Bld) 50.2 % Normal 43.0-75.0 [facility] Comment on above: Performed By: #### C BC ####[facility] Jptixsmvbw6132 [place] [address]Dr. Farhat Leal Platelet mean volume (Bld) [Entitic vol] 11.8 fL Normal 9.5-13.5 [facility] Comment on above: Performed By: #### C BC ####[facility] Ldwifwqadm1809 [place] [address]Dr. Madelynlorri Elvis PLT 193 103/ul Normal 150-450 [facility] Comment on above: Performed By: #### C BC ####[facility] Nnhnsuzoyn6338 [place] [address]Dr. Farhat Elvis RBC 4.03 106/ul Critically low 4.70-6.10 [facility] Comment on above: Performed By: #### C BC ####[facility] Esaarjiqut48[address] [place], [place] [address]Dr. Farhat Leal WBC 6.8 103/ul Normal 4.0-11.0 [facility] Comment on above: Performed By: #### C BC ####[facility] Dkfusbghhn5415 [place] [address]Dr. Farhat Leal PROF 14(COMP METB)on 023 Albumin [Mass/Vol] 2.9 g/dL Critically low 3.4-5.0 [facility] Comment on above: Performed By: #### C MP ####[facility] Tbirylbybf0183 [place] [address]Dr. Farhat Leal Albumin/Globulin [Mass ratio] 0.9 {ratio} Normal [facility] Comment on above: Performed By: #### C MP ####[facility] Iwyixhcoxi5674 [place] [phone]. Farhat Leal ALP [Catalytic activity/Vol] 67 U/L Normal 46-116 [facility] Comment on above: Performed By: #### C MP ####[facility] Krjifvduus4584 [place] [address]Dr. Farhat Leal ALT [Catalytic activity/Vol] 15 U/L Critically low 16-63 [facility] Comment on above: Performed By: #### C MP ####[facility] Uplvnngmpo[address] [place], [place] [address]Dr. Farhat Leal Anion gap [Moles/Vol] 10.8 mmol/L Normal Th e [facility] Comment on above: Performed By: #### C MP ####[facility] Wrmutqxlao57[address] [place], [place] [address]Dr. Farhat Leal AST [Catalytic activity/Vol] 23 U/L Normal 15-37 [facility] Comment on above: Performed By: #### C MP ####[facility] Tyqofpfqub34[address] [place], [place] [address]Dr. Farhat Leal Bilirubin [Mass/Vol] 0.6 mg/dL Normal 0.2-1.0 [facility] Comment on above: Performed By: #### C MP ####[facility] Kzifcrdlco[address] [place], [place] [address]Dr. Farhat Leal Calcium [Mass/Vol] 8.7 mg/dL Normal 8.5-10.1 [facility] Comment on above: Performed By: #### C MP ####[facility] Teqzimdpzx105[address] [place], [place] [address]Dr. Farhat Leal Chloride [Moles/Vol] 105 mmol/L Normal 98-107 [facility] Comment on above: Performed By: #### C MP ####[facility] Lapjlxywcl196[address] [place], [place] [address]Dr. Farhat Leal CO2 [Moles/Vol] 29.5 mmol/L Normal 21.0-32.0 [facility] Comment on above: Performed By: #### C MP ####[facility] Lorgqojtmo022[address] [place], [place] [address]Dr. Farhat Elvis Creatinine [Mass/Vol] 1.37 mg/dL Critically high 0.70-1.30 [facility] Comment on above: Performed By: #### C MP ####[facility] Sadpjtuqhf26[address] [place] [address]Dr. Farhat Elvis EGFR-AF MONTENEGRIN >60 Normal >=60 [facility] Comment on above: Performed By: #### C MP ####[facility] Dcxepugscr3149 [place] [address]Dr. Farhat Leal EGFR-NON AF MONTENEGRIN 50 mL/min/1.73m2 Critically low >=60 [facility] Comment on above: Performed By: #### C MP ####[facility] Kcishyktsh8647 [place] [address]Dr. Farhat Leal Globulin (S) [Mass/Vol] 3.1 g/dL Normal [facility] Comment on above: Performed By: #### C MP ####[facility] Zzsjzfjeyf1653 [place] [address]Dr. Farhat Leal Glucose [Mass/Vol] 203 mg/dL Critically high 74-106 [facility] Comment on above: Performed By: #### C MP ####[facility] Yxlzequvvu17[address] [place], [place] [address]Dr. Farhat Leal Potassium [Moles/Vol] 4.3 mmol/L Normal 3.5-5.1 [facility] Comment on above: Performed By: #### C MP ####[facility] Uztotqpjue6906 [place] [address]Dr. Farhat Leal Protein [Mass/Vol] 6.0 g/dL Critically low 6.4-8.2 [facility] Comment on above: Performed By: #### C MP ####[facility] Ipixjsatoh25[address] [place], [place] [address]Dr. Farhat Leal Sodium [Moles/Vol] 141 mmol/L Normal 136-145 [facility] Comment on above: Performed By: #### C MP ####[facility] Evwgkwhhlk[address] [place], [place] [address]Dr. Farhat Leal Urea nitrogen [Mass/Vol] 65.0 mg/dL Critically high 7.0-18.0 [facility] Comment on above: Performed By: #### C MP ####[facility] Oydkqzrzvz77[address] [place] [phone]. Farhat Leal Urea nitrogen/Creatinine [Mass ratio] 47.4 mg/mg Normal [facility] Comment on above: Performed By: #### C MP ####[facility] Mgrrrkqmxv5657 [place] [phone] Farhat Leal PROTIMEon 04-15-2022 INR Coag (PPP) [Relative time] 3.88 {INR} Normal [facility] Comment on above: Performed By: #### P T ####[facility] Ffisdbctzt77[address] [place] [phone] Farhat Leal INR GUIDELINES SEE BELOW Normal [facility] Comment on above: Result Comment: MALINA RED INR: 2.0 - 3.0 CONDITIONS NOT LISTED BELOW 2.5 - 3.5 FOR PROSTHETIC HEART VALVE REPLACEMENT 2.5 - 3.5 RECURRENT THROMBOSIS Performed By: #### P T ####[facility] Tsihdmnkoz7757 [place] [phone] Farhat Leal PT Coag (PPP) [Time] 38.1 s Critically high 9.0-11.6 [facility] Comment on above: Performed By: #### P T ####[facility] Qaltvvicfa7155 [place] [phone] Farhat Leal Glucose Glucometer (dC) [M ass/Vol]Ordered By: Sadia Aguilar on 04-14-2022 Glucose [Mass/Vol] 162 mg/dL [facility] Comment on above: Random Glucose Refer ence Range is dependent on time and content of last meal. Glucose of more than 200 mg/dL in a nonstressed, ambulatory subject supports the diagnosis of Diabetes Mellitus. Glucose Poct Glucometerson 0 04-14-2022 Commemt1 Glu2: Cleaned Meter Normal [facility] Comment on above: Result Comment: PERF ORMED BY: [facility] [address] [place] [address] PATHOLOGIST NET TRAINER JOSE F ELLIOTT M.D. Performed By: #### G MADY #### Point of Care testing , Glucose [Mass/Vol] 162 mg/dL Normal [facility] Comment on above: Result Comment: [place] Glucose Reference Range is dependent on time and content of last meal. Glucose of more than 200 mg/dL in a nonstressed, ambulatory subject supports the diagnosis of Diabetes Mellitus. Performed By: #### G LULS #### Point of Care testing , No Panel InformationOrdered By: Sadia Aguilar on 04-14-2022 Bedside Glucose Comment Glu2: cleaned meter [facility] MAGNESIUMon 04-13-2022 Magnesium [Mass/Vol] 1.7 mg/dL Critically low 1.8-2.4 [facility] Comment on above: Performed By: #### M HENRI Manzo ####[facility] Jieslmjjbr[address] [place] [address]DrSkylar Leal PHOSPHORUSon 04-13-2022 Phosphate [Mass/Vol] 4.8 mg/dL Critically high 2.6-4.7 [facility] Comment on above: Performed By: #### M HENRI Manzo ####[facility] Hkrlcujkep74[address] [place] [address]DrSkylar Leal PROTIMEon 04-13-2022 INR Coag (PPP) [Relative time] 3.16 {INR} Normal [facility] Comment on above: Performed By: #### P T ####[facility] Bnlfbxwaen74[address] [place] [address]DrSkylar Leal INR GUIDELINES SEE BELOW Normal [facility] Comment on above: Result Comment: MALINA RED INR: 2.0 - 3.0 CONDITIONS NOT LISTED BELOW 2.5 - 3.5 FOR PROSTHETIC HEART VALVE REPLACEMENT 2.5 - 3.5 RECURRENT THROMBOSIS Performed By: #### P T ####[facility] Yjkmlqwzwh4782 [place] [address]Dr. Farhat Leal PT Coag (PPP) [Time] 31.4 s Critically high 9.0-11.6 [facility] Comment on above: Performed By: #### P T ####[facility] Dejwrarlyn3686 [place] [phone]. Farhat Leal MAGNESIUMon 03-11-2022 Magnesium [Mass/Vol] 1.6 mg/dL Critically low 1.8-2.4 [facility] Comment on above: Performed By: #### M G, PHOS ####[facility] Srqseikomd4[address] [place] [phone]. Farhat Leal PHOSPHORUSon 03-11-2022 Phosphate [Mass/Vol] 5.3 mg/dL Critically high 2.6-4.7 [facility] Comment on above: Performed By: #### M G, PHOS ####[facility] Yfdcsivfju8[address] [place] [address]Dr. Farhat Leal CNOVon 02-26-2022 CNOV Office Visit (HONEY ) ALEX ALMONTE ([id number]) 1945 M TRN Date Time Provider Department 02/26/22 3:00 PM HINA PETERSON During your visit today, we recorded the following information about you: Temperature Pulse Blood pressure 96.6 degrees 75/minute 88/75 Hina Peterson MD, 02/26/2022 4:31 PM [facility] [place] DEPARTMENT OF VASCULAR SURGERY OUTPATIENT VISIT DATE [...] his postop visit. He has been in group home since then and has been recovering from his acute on chronic congestive heart failure. His wound has largely been healing without any issues and the maxwell and sutures were removed at the nursing facility. He comes here with a lateral wound eschar. He denies any fevers, chills, or any drainage. He is on anticoagulation. 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) 11/29/2021 BPH (benign prostatic hyperplasia) CAD (coronary artery disease) 2016 s/p PCI 2016 and CABG 2019 Diabetes mellitus ([facility]) Diabetic neuropathy ([facility]) Diabetic retinopathy ([facility]) HTN (hypertension) Hyperlipidemia Impaired vision in both eyes KIDNEY TRANSPLANT STATUS 09/07/2003 ESRD s/p renal transplant in 2001 on chronic immunosuppression . Patient on mycophenolate mofetil , cellcept and prednisone Mixed hyperlipidemia due to type 2 diabetes mellitus ([facility]) 11/29/2021 Osteomyelitis ([facility]) 11/29/2021 Paroxysmal atrial fibrillation ([facility]) Renal transplant, status post SA node dysfunction ([facility]) s/p pacemaker Type 2 diabetes mellitus with diabetic neuropathy, with long-term current use of insulin ([facility]) 02/24/2002 PAST SURGICAL HISTORY Procedure [...] Wednesday, and Wednesday. insulin glargine (LANTUS SOLOSTAR, BASAGLBINH LANDRUM) 100 unit/mL (3 mL) Inject 17 Units [...] by mouth daily with lunch. Magic Cup [place] with lunch aspirin, enteric coated (ASPIRIN, ENTERIC COATED) 81 mg EC tablet Take 1 tablet by (more content not included)... Normal [facility] PROTIMEon 02-25-2022 INR Coag (PPP) [Relative time] 1.31 {INR} Normal [facility] Comment on above: Performed By: #### P T ####[facility] [address] [place], [place] [address]Ie. Farhat Leal INR GUIDELINES SEE BELOW Normal [facility] Comment on above: Result Comment: MALINA RED INR: 2.0 - 3.0 CONDITIONS NOT LISTED BELOW 2.5 - 3.5 FOR PROSTHETIC HEART VALVE REPLACEMENT 2.5 - 3.5 RECURRENT THROMBOSIS Performed By: #### P T ####[facility] [address] [place], [place] [address]QkSkylar Leal PT Coag (PPP) [Time] 13.7 s Critically high 9.0-11.6 [facility] Comment on above: Performed By: #### P T ####[facility] [address] [place], [place] [address]AfSkylar Hassan 02-19-2022 CNPN Telephone (TXCTGL) ALEX ALMONTE ([id number]) 1945 M TRN Date Time Provider Department 02/19/22 AUGUSTA MEDRANO During your visit today, we recorded the following information about you: Augusta Medrano RN 02/19/2022 11:16 AM Signed Alex Almonte's nursing facility, [facility], called regarding elevated tacrolimus level [...] by mouth daily with lunch. 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 Almonte would like to request a sooner appointment with Dr. Peterson than 04/13/2022. Contact Name (if not the patient) Alex's nurse Home and cell number(Ask for Alex's nurse) [phone] Diagnosis 4 mo f/u wound check Best [...] by mouth daily with lunch. 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 Normal [facility] CNOVon 02-05-2022 CNOV Office Visit (TXCTGL ) ALEX ALMONTE ([id number]) 1945 M TRN Date Time Provider Department 02/05/22 8:20 AM [facility]IDNEY TXP [facility]INIC TXCTGL During your visit today, we recorded the following information about you: Temperature Pulse Blood pressure 96.7 degrees 79/minute 72/42 Asia Pike MD 02/05/2022 9:38 AM Signed [facility] [place] Transplant Follow up Portions of this note [...] date with medications. Patient brought paperwork from [employer] with all medications being received. Patient unsure if they have been drawing labs regularly. Last Tac from 01/19: 12.9 and K 5.9. In need of current labs. Lab orders will be sent with patient and follows as below: Kidney and Pancreas Transplant Standing Lab Orders [address] [place], [place] [address] February 05, 2022 Alex Urbinaward 1945 [id number] STANDARD TESTING: Diagnosis Codes: Z94.0 Kidney Transplant [...] AT YOUR LABORATORY FACILITY AND FAX TO [phone]. PLEASE CALL [phone]. Provider: Dr. Pike Current Outpatient Medications Medication [...] 237 (more content not included)... Normal [facility] PROTEIN CREATININE RATIOon 1 04-08-2021 Protein/Creatinine (U) [Mass ratio] 0.10 mg/mg <0.15 mg/mg [facility] PROTIMEon 02-05-2022 INR Coag (PPP) [Relative time] 2.90 {INR} Normal [facility] Comment on above: Performed By: #### P T ####[facility] [address] [place], [place] [address]QeDr. Farhat Leal INR GUIDELINES SEE BELOW Normal [facility] Comment on above: Result Comment: MALINA RED INR: 2.0 - 3.0 CONDITIONS NOT LISTED BELOW 2.5 - 3.5 FOR PROSTHETIC HEART VALVE REPLACEMENT 2.5 - 3.5 RECURRENT THROMBOSIS Performed By: #### P T ####[facility] [address] [place] [id number]. Farhat Leal PT Coag (PPP) [Time] 29.2 s Critically high 9.0-11.6 [facility] Comment on above: Performed By: #### P T ####[facility] [address] [place] [phone]. Farhat Leal Prot/Creat Uron 02-05-2022 Protein/Creatinine (U) [Mass ratio] 0.10 mg/mg Normal <0.15 [facility] Comment on above: Order Comment: Speci men Type: URINE SPECIMENOrdering Facility: [facility] Address: [address] [place] [address] Result Comment: Adul t Proteinuria Categories: <0.15 mg/mg is considered normal to mildly increased 0.15 - 0.50 mg/mg is considered moderately increased >0.50 mg/mg is considered severely increased KDIGO. (2013). KDIGO 2012 Clinical Practice Guideline for the Evaluation and Management of Chronic Kidney Disease. Official Journal of the International Society of Nephrology, 3(1), 1-150. Performed By: #### 2 890-2 ####[facility] LABCLIA [id number] [address] STATES OF [facility] Protein/Creatinine (U) [Mass ratio]on 02-05-2022 Creatinine (U) [Mass/Vol] 86.9 mg/dL 20.0 - 300.0 mg/dL [facility] Protein (U) [Mass/Vol] 9 mg/dL 0 - 20 mg/dL [facility] Creatinine (U) [Mass/Vol] 86.9 mg/dL Normal 20.0-300.0 [facility] Comment on above: Order Comment: Speci men Type: URINE SPECIMENOrdering Facility: [facility] Address: [address] [place] [address] Performed By: #### 2 890-2 ####[facility] LABCLIA [id number] [place] [address] [place] Protein (U) [Mass/Vol] 9 mg/dL Normal 0-20 [facility] Comment on above: Order Comment: Speci men Type: URINE SPECIMENOrdering Facility: [facility] Address: [address] [place] [address] Performed By: #### 2 890-2 ####[facility] LABCLIA [id number] [place] [address] [place] URINALYSIS, DIPSTICK ONLYon 02-05-2022 Bilirubin Ql (U) Negative Normal Negative [facility] Comment on above: Order Comment: Speci men Type: URINE SPECIMEN [facility] Address: [address] [place] [address] Performed By: #### U A #### [facility] CLIA [id number] [address] [place] [address] [place] Clarity (Unsp spec) Clear Normal Clear [facility] Comment on above: Order Comment: Speci men Type: URINE SPECIMEN [facility] Address: [address] [place] [address] Performed By: #### U A #### [facility] CLIA [id number] [address] [place] [address] [place] Color (U) Yellow Normal Yellow [facility] Comment on above: Order Comment: Speci men Type: URINE SPECIMEN [facility] Address: [address] [place], [place] [id number] Performed By: #### U A #### [facility] CLIA [id number] [address] [place] [address] [place] Glucose Test strip (U) [Mass/Vol] 3+ Abnormal Trace, Negative [facility] Comment on above: Order Comment: Speci men Type: URINE SPECIMEN [facility] Address: [address] [place] [address] Performed By: #### U A #### [facility] CLIA [id number] [address] [place] [address] [place] Hemoglobin Ql (U) Negative Normal Negative, Trace [facility] Comment on above: Order Comment: Speci men Type: URINE SPECIMEN [facility] Address: [address] [place] [address] Performed By: #### U A #### [facility] CLIA [id number] [address] [place] [address] [place] Ketones Ql (U) Trace Normal Negative, Trace [facility] Comment on above: Order Comment: Speci men Type: URINE SPECIMEN [facility] Address: [address] [place] [address] Performed By: #### U A #### [facility] CLIA [id number] [address] [place] [address] [place] Leukocyte esterase Test strip Ql (U) Negative Normal Negative, 25 Loraine/mL [facility] Comment on above: Order Comment: Speci men Type: URINE SPECIMEN [facility] Address: [address] [place] [address] Performed By: #### U A #### [facility] CLIA [id number] [address] [place] [address] [place] Nitrite Ql (U) Negative Normal Negative [facility] Comment on above: Order Comment: Speci men Type: URINE SPECIMEN [facility] Address: [address] [place] [address] Performed By: #### U A #### [facility] CLIA [id number] [address] [place] [address] [place] pH (U) 5.5 [pH] Normal 5.0-8.0 [facility] Comment on above: Order Comment: Speci men Type: URINE SPECIMEN [facility] Address: [address] [place] [address] Performed By: #### U A #### [facility] CLIA [id number] [address] [place] [address] [place] Protein (U) [Mass/Vol] Negative Normal Trace , Negative [facility] Comment on above: Order Comment: Speci men Type: URINE SPECIMEN [facility] Address: [address] [place] [address] Performed By: #### U A #### [facility] CLIA [id number] [address] [place] [address] [place] Specific gravity (U) [Rel density] 1.014 Normal 1.005-1.030 [facility] Comment on above: Order Comment: Speci men Type: URINE SPECIMEN [facility] Address: [address] [place] [address] Performed By: #### U A #### [facility] IA [id number] [address] [place] [address] [place] Urobilinogen Ql (U) 1+ Abnormal Negative [facility] Comment on above: Order Comment: Speci men Type: URINE SPECIMEN [facility] Address: [address] [place] [address] Performed By: #### U A #### [facility] CLIA [id number] [address] [place] [address] [place] Bilirubin Ql (U) Negative Negative [facility] Clarity (Unsp spec) Clear Clear [facility] Color (U) Yellow Yellow [facility] Glucose Test strip (U) [Mass/Vol] 3+ Abnormal Trace, Negative [facility] Hemoglobin Ql (U) Negative Negative, Trace [facility] Ketones Ql (U) Trace Negative, Trace [facility] Leukocyte esterase Test strip Ql (U) Negative Negative, 25 Loraine/mL [facility] Nitrite Ql (U) Negative Negative [facility] pH (U) 5.5 [pH] 5.0 - 8.0 [facility] Protein (U) [Mass/Vol] Negative Trace , Negative [facility] Specific gravity (U) [Rel density] 1.014 1.005 - 1.030 [facility] Urobilinogen Ql (U) 1+ Abnormal Negative [facility] FK506 (TACROLIMUS) WHOLE BLO ODon 01-29-2022 Tacrolimus (FK506), Blood 11.1 ng/mL Normal 2.0-20.0 [facility] Comment on above: Result Comment: Trou gh (immediately following transplant) 15.0 . Trough (steady state, 2 weeks or more after transplant): 3.0 - 8.0 . Performed by LC-MS/MS technology. Performed By: #### F K506T ####[facility] [address] [place], [place] [address]Dr. Farhat Leal PHOSPHORUSon 01-26-2022 Phosphate [Mass/Vol] 4.1 mg/dL Normal 2.6-4.7 [facility] Comment on above: Performed By: #### C CARA, PHOS ####[facility] [address] [place], [place] [address]Dr. Farhat Leal PROF 14(COMP METB)on 022 Albumin [Mass/Vol] 2.1 g/dL Critically low 3.4-5.0 [facility] Comment on above: Performed By: #### C CARA, PHOS ####[facility] [address] [place], [place] [address]Dr. Farhat Leal Albumin/Globulin [Mass ratio] 0.6 {ratio} Normal [facility] Comment on above: Performed By: #### C CARA, PHOS ####[facility] [address] [place], [place] [address]Dr. Farhat Leal ALP [Catalytic activity/Vol] 89 U/L Normal 46-116 [facility] Comment on above: Performed By: #### C CARA, PHOS ####[facility] [address] [place], [place] [address]Dr. Farhat Leal ALT [Catalytic activity/Vol] 27 U/L Normal 16-63 [facility] Comment on above: Performed By: #### C CARA, PHOS ####[facility] [address] [place] [phone]. Farhat Leal Anion gap [Moles/Vol] 12.3 mmol/L Normal [facility] Comment on above: Performed By: #### C MP, PHOS ####[facility] [address] [place] [phone]. Farhat Leal AST [Catalytic activity/Vol] 53 U/L Critically high 15-37 [facility] Comment on above: Performed By: #### C MP, PHOS ####[facility] [address] [place] [phone]. Farhat Leal Bilirubin [Mass/Vol] 0.6 mg/dL Normal 0.2-1.0 [facility] Comment on above: Performed By: #### C CARA, PHOS ####[facility] [address] [place] [address]Dr. Farhat Leal Calcium [Mass/Vol] 8.0 mg/dL Critically low 8.5-10.1 [facility] Comment on above: Performed By: #### C CARA, PHOS ####[facility] [address] [place] [phone]. Farhat Leal Chloride [Moles/Vol] 97 mmol/L Critically low 98-107 [facility] Comment on above: Performed By: #### C MP, PHOS ####[facility] [address] [place] [phone]. Farhat Leal CO2 [Moles/Vol] 26.6 mmol/L Normal 21.0-32.0 [facility] Comment on above: Performed By: #### C MP, PHOS ####[facility] [address] [place] [phone]. Farhat Leal Creatinine [Mass/Vol] 1.03 mg/dL Normal 0.70-1.30 [facility] Comment on above: Performed By: #### C MP, PHOS ####[facility] [address] [place] [phone]. Farhat Leal EGFR-AF MONTENEGRIN >60 Normal >=60 [facility] Comment on above: Performed By: #### C MP, PHOS ####[facility] [address] [place] [address]Dr. Farhat Leal EGFR-NON AF MONTENEGRIN >60 Normal >=60 [facility] Comment on above: Performed By: #### C MP, PHOS ####[facility] [address] [place] [address]Dr. Farhat Leal Globulin (S) [Mass/Vol] 3.7 g/dL Normal [facility] Comment on above: Performed By: #### C MP, PHOS ####[facility] [address] [place] [address]Dr. Farhat Leal Glucose [Mass/Vol] 287 mg/dL Critically high 74-106 [facility] Comment on above: Performed By: #### C CARA, PHOS ####[facility] [address] [place], [place] [address]Dr. Farhat Leal Potassium [Moles/Vol] 3.9 mmol/L Normal 3.5-5.1 [facility] Comment on above: Performed By: #### C CARA, PHOS ####[facility] [address] [place], [place] [address]Dr. Farhat Leal Protein [Mass/Vol] 5.8 g/dL Critically low 6.4-8.2 [facility] Comment on above: Performed By: #### C CARA, PHOS ####[facility] [address] [place] [address]Dr. Farhat Leal Sodium [Moles/Vol] 132 mmol/L Critically low 136-145 [facility] Comment on above: Performed By: #### C MP, PHOS ####[facility] [address] [place], [place] [address]Dr. Farhat Leal Urea nitrogen [Mass/Vol] 23.0 mg/dL Critically high 7.0-18.0 [facility] Comment on above: Performed By: #### C MP, PHOS ####[facility] [address] [place], [place] [address]Dr. Farhat Leal Urea nitrogen/Creatinine [Mass ratio] 22.3 mg/mg Normal [facility] Comment on above: Performed By: #### C HENRI MARROQUIN ####[facility] [address] [place] [phone]. Madelynlorri Elvis FK506 (TACROLIMUS) WHOLE BLO ODon 01-21-2022 Tacrolimus (FK506), Blood 12.2 ng/mL Normal 2.0-20.0 [facility] Comment on above: Result Comment: Trou gh (immediately following transplant) 15.0 . Trough (steady state, 2 weeks or more after transplant): 3.0 - 8.0 . Performed by LC-MS/MS technology. Performed By: #### F K506T ####[facility] [address] [place] [address]Dr. Farhat Leal ACID FAST SMEAR AND CXon Acid Fast Culture Negative Normal [facility] Comment on above: Result Comment: No a abdiel fast bacilli isolated after 6 weeks. Performed By: #### A FB ####[facility] [address] [place] [phone]. Farhat Leal Acid Fast Smear Negative Normal [facility] Comment on above: Performed By: #### A FB ####[facility] [address] [place] [address]Dr. Farhat Leal [employer] Specimen Processing Tissue Grinding Normal [facility] Comment on above: Performed By: #### A FB ####[facility] [address] [place] [phone]. Farhat Hassan 01-20-2022 DIAMANTEN Telephone (KIMBERLY) ALEX ALMONTE ([id number]) 1945 M [facility] Date Time Provider Department 01/20/22 [...] Date Reviewed: 01/15/2022 Reviewed by: Raquel Tai APRN.CNP - Fully Assessed Reason for Visit: Results [...] by mouth daily with lunch. 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 Atherosclerosis of [place] artery of extremity w*11/29/2021 Malnutrition of moderate degree (HCC) [E44.0] 12/01/2021 Dermatitis associated with moisture [L30.8] 12/04/2021 Encounter Status:Closed by VAN OLIVAREZ on 01/20/22 Normal [facility] Orders Onlyon 01-20-2022 Orders Only [id number] Alex Almonte 1945 M Date Provider Department Center 01/20/2022 Fidelina8-SUSIE HERNANDES [facility] No family history on file Normal [facility] PROF 14(COMP METB)on 022 Albumin [Mass/Vol] 1.9 g/dL Critically low 3.4-5.0 [facility] Comment on above: Performed By: #### C MP ####[facility] [address] [place] [address]DrSkylar Leal Albumin/Globulin [Mass ratio] 0.5 {ratio} Normal [facility] Comment on above: Performed By: #### C MP ####[facility] [address] [place] [phone] eLal ALP [Catalytic activity/Vol] 78 U/L Normal 46-116 [facility] Comment on above: Performed By: #### C MP ####[facility] [address] [place] [phone] Leal ALT [Catalytic activity/Vol] 22 U/L Normal 16-63 [facility] Comment on above: Performed By: #### C MP ####[facility] [address] [place] [phone]. Farhat Leal Anion gap [Moles/Vol] 8.0 mmol/L Normal [facility] Comment on above: Performed By: #### C MP ####[facility] [address] [place] [phone]. Farhat Leal AST [Catalytic activity/Vol] 92 U/L Critically high 15-37 [facility] Comment on above: Performed By: #### C MP ####[facility] [address] [place] [phone]. Farhat Elvis Bilirubin [Mass/Vol] 0.7 mg/dL Normal 0.2-1.0 [facility] Comment on above: Performed By: #### C MP ####[facility] [address] [place], [place] [address]Dr. Farhat Leal Calcium [Mass/Vol] 7.8 mg/dL Critically low 8.5-10.1 [facility] Comment on above: Performed By: #### C MP ####[facility] [address] [place], [place] [address]Dr. Madelynlorri Leal Chloride [Moles/Vol] 99 mmol/L Normal 98-107 [facility] Comment on above: Performed By: #### C MP ####[facility] [address] [place] [address]Dr. Madelynlorri Elvis CO2 [Moles/Vol] 30.9 mmol/L Normal 21.0-32.0 [facility] Comment on above: Performed By: #### C MP ####[facility] [address] [place] [phone]. Farhat Elvis Creatinine [Mass/Vol] 0.95 mg/dL Normal 0.70-1.30 [facility] Comment on above: Performed By: #### C MP ####[facility] B[address]ovcum[address] [place] [phone]. Farhat Leal EGFR-AF MONTENEGRIN >60 Normal >=60 [facility] Comment on above: Performed By: #### C MP ####[facility] Jslxgqstwt[address] [place] [phone]. Farhat Leal EGFR-NON AF MONTENEGRIN >60 Normal >=60 [facility] Comment on above: Performed By: #### C MP ####[facility] K[address] [place] [phone]. Farhat Leal Globulin (S) [Mass/Vol] 3.9 g/dL Normal [facility] Comment on above: Performed By: #### C MP ####[facility] Ewdoogksri[address] [place] [phone]. Farhat Leal Glucose [Mass/Vol] 124 mg/dL Critically high 74-106 [facility] Comment on above: Performed By: #### C MP ####[facility] R[address]prmoucb[address] [place] [address]Dr. Farhat Leal Potassium [Moles/Vol] 5.9 mmol/L Critically high 3.5-5.1 [facility] Comment on above: Performed By: #### C MP ####[facility] Udddsfswns[address] [place] [address]Dr. Farhat Leal Protein [Mass/Vol] 5.8 g/dL Critically low 6.4-8.2 [facility] Comment on above: Performed By: #### C MP ####[facility] Sdurmivrka[address] [place] [address]Dr. Farhat Leal Sodium [Moles/Vol] 132 mmol/L Critically low 136-145 [facility] Comment on above: Performed By: #### C MP ####[facility] Twaydkspml[address] [place] [phone]. Farhat Leal Urea nitrogen [Mass/Vol] 18.0 mg/dL Normal 7.0-18.0 [facility] Comment on above: Performed By: #### C MP ####[facility] Lknethhvhk[address] [place], [place] [address]Dr. Farhat Leal Urea nitrogen/Creatinine [Mass ratio] 18.9 mg/mg Normal [facility] Comment on above: Performed By: #### C MP ####[facility] Sexfifhkgp0528 [place], [place] [address]Qa. Farhat Leal INR (POC)on 01-12-2022 INR Coag (PPP) [Relative time] 2.6 {INR} High 0.8 - 1.2 [facility] Internal Quality Check Acceptable [facility] ACID FAST SMEAR AND CXon Acid Fast Culture Negative Normal [facility] Comment on above: Result Comment: No a abdiel fast bacilli isolated after 6 weeks. Performed By: #### A FB ####[facility] Tipnaqpxpy[address] [place], [place] [id number]. Farhat Leal Acid Fast Smear Negative Normal [facility] Comment on above: Performed By: #### A FB ####[facility] Iiynwjmdzx[address] [place], [place] [address]Dr. Farhat Leal [employer] Specimen Processing Direct Inoculation [facility] Comment on above: Performed By: #### A FB ####[facility] Lejurbyujt[address] [place], [place] [id number]. Farhat Leal ACID FAST SMEAR AND CXon Acid Fast Culture Negative Normal [facility] Comment on above: Result Comment: No a abdiel fast bacilli isolated after 6 weeks. Performed By: #### A FB ####[facility] Iajebiwkqr[address] [place], [place] [id number]. Farhat Leal Acid Fast Smear Negative Normal [facility] Comment on above: Performed By: #### A FB ####[facility] Avvsldictm[address] [place], [place] [address]Dr. Farhat Leal [employer] Specimen Processing Tissue Grinding [facility] Comment on above: Performed By: #### A FB ####[facility] Giwrcozlfl[address] [place], [place] [id number]. Farhat Leal FUNGAL CULTUREon 01-02-2022 Fungus (Mycology) Culture Final report Normal [facility] Comment on above: Performed By: #### C XFUN ####[facility] Izkfbjeetx[address] [place], [place] [id number]. Farhat Leal Fungus Stain Final report Normal [facility] Comment on above: Performed By: #### C XFUN ####[facility] H[address]ls[address] [place] [address]. Farhat Leal Result 1 Comment Normal [facility] Comment on above: Result Comment: ANNI/ Calcofluor preparation: no fungus observed. Performed By: #### C XFUN ####[facility] Y[address]jorxwpej[address] [place] [address]. Farhat Leal Result Comment: No y east or mold isolated after 4 weeks. FK506 (TACROLIMUS) WHOLE BLO ODon 12-31-2021 Tacrolimus (FK506), Blood 7.7 ng/mL Normal 2.0-20.0 [facility] Comment on above: Result Comment: Trou gh (immediately following transplant) 15.0 . Trough (steady state, 2 weeks or more after transplant): 3.0 - 8.0 . Performed by LC-MS/MS technology. Performed By: #### F K506T ####[facility] Uqtbzzx[address] [place] [address]. Farhat Leal HEMOGRAM AND PLATELon 2021 Hematocrit (Bld) [Volume fraction] 27.1 % Critically low 42.0-54.0 [facility] Comment on above: Performed By: #### H H ####[facility] Vmklq[address]qex[address] [place] [address]. Farhat Leal Hemoglobin (Bld) [Mass/Vol] 8.7 g/dL Critically low 14.0-18.0 [facility] Comment on above: Performed By: #### H H ####[facility] [address] [place] [address]. Farhat Leal MCH (RBC) [Entitic mass] 30.3 pg Normal 25.9-34.0 [facility] Comment on above: Performed By: #### H H ####[facility] Uiaotplzbe[address] [place] [address]. Farhat Leal MCHC (RBC) [Mass/Vol] 32.1 g/dL Normal 29.9-35.2 [facility] Comment on above: Performed By: #### H H ####[facility] E[address]vxn[address] [place] [phone]. Farhat Leal MCV (RBC) [Entitic vol] 94.4 fL Critically high 80.0-94.0 [facility] Comment on above: Performed By: #### H H ####[facility] Upvaazmjdv[address] [place] [phone]. Farhat Leal PLT 355 103/ul Normal 150-450 [facility] Comment on above: Performed By: #### H H ####[facility] Youlqwvefy3[address] [place] [address]Dr. Farhat Leal RBC 2.87 106/ul Critically low 4.70-6.10 [facility] Comment on above: Performed By: #### H H ####[facility] Pgygtlzzxl7[address] [place], [place] [address]Dr. Farhat Leal WBC 6.0 103/ul Normal 4.0-11.0 [facility] Comment on above: Performed By: #### H H ####[facility] Zvvidlfktv5[address] [place], [place] [address]Dr. Farhat Leal PHOSPHORUSon 12-29-2021 Phosphate [Mass/Vol] 2.5 mg/dL Critically low 2.6-4.7 [facility] Comment on above: Performed By: #### P HOS, CMP ####[facility] Djemzunlbz[address] [place] [address]Dr. Farhat Elvis PROF 14(COMP METB)on 022 Albumin [Mass/Vol] 1.7 g/dL Critically low 3.4-5.0 [facility] Comment on above: Performed By: #### P HOS, CMP ####[facility] Xuciwzzoss075[address] [place], [place] [address]Dr. Farhat Leal Albumin/Globulin [Mass ratio] 0.5 {ratio} Normal [facility] Comment on above: Performed By: #### P HOS, CMP ####[facility] Fkhlexhevc8[address] [place] [address]Dr. Farhat Leal ALP [Catalytic activity/Vol] 78 U/L Normal 46-116 [facility] Comment on above: Performed By: #### P HOS, CMP ####[facility] Tumcwskvvi[address] [place], [place] [address]Dr. Farhat Leal ALT [Catalytic activity/Vol] 12 U/L Critically low 16-63 [facility] Comment on above: Performed By: #### P HOS, CMP ####[facility] Yowkktscdh[address] [place], [place] [address]Dr. Farhat Leal Anion gap [Moles/Vol] 5.1 mmol/L Normal [facility] Comment on above: Performed By: #### P HOS, CMP ####[facility] Kwjiduglit[address] [place], [place] [address]Dr. Farhat Leal AST [Catalytic activity/Vol] 22 U/L Normal 15-37 [facility] Comment on above: Performed By: #### P HOS, CMP ####[facility] Chdhsxacry397[address] [place], [place] [address]Dr. Farhat Leal Bilirubin [Mass/Vol] 0.6 mg/dL Normal 0.2-1.0 [facility] Comment on above: Performed By: #### P HOS, CMP ####[facility] Wsdfrfxdcf8[address] [place], [place] [address]Dr. Farhat Leal Calcium [Mass/Vol] 8.1 mg/dL Critically low 8.5-10.1 [facility] Comment on above: Performed By: #### P HOS, CMP ####[facility] Emkaavmgad[address] [place], [place] [address]Dr. Farhat Leal Chloride [Moles/Vol] 100 mmol/L Normal 98-107 [facility] Comment on above: Performed By: #### P HOS, CMP ####[facility] Zxezxrgqqy[address] [place], [place] [address]Dr. Farhat Leal CO2 [Moles/Vol] 34.2 mmol/L Critically high 21.0-32.0 [facility] Comment on above: Performed By: #### P HOS, CMP ####[facility] Ndqyidweld189[address] [place], [place] [address]Dr. Farhat Leal Creatinine [Mass/Vol] 0.92 mg/dL Normal 0.70-1.30 [facility] Comment on above: Performed By: #### P HOS, CMP ####[facility] [address]uop[address] [place] [phone]. Farhat Leal EGFR-AF MONTENEGRIN >60 Normal >=60 [facility] Comment on above: Performed By: #### P HOS, CMP ####[facility] Vchczqugae[address] [place] [phone]. Farhat Leal EGFR-NON AF MONTENEGRIN >60 Normal >=60 [facility] Comment on above: Performed By: #### P HOS, CMP ####[facility] Acxweiysfb[address] [place] [phone]. Farhat Leal Globulin (S) [Mass/Vol] 3.3 g/dL Normal [facility] Comment on above: Performed By: #### P HOS, CMP ####[facility] Geyaevdkml[address] [place] [address]Dr. Farhat Leal Glucose [Mass/Vol] 116 mg/dL Critically high 74-106 [facility] Comment on above: Performed By: #### P HOS, CMP ####[facility] Iawdjihyii[address] [place] [phone]. Farhat Leal Potassium [Moles/Vol] 3.3 mmol/L Critically low 3.5-5.1 [facility] Comment on above: Performed By: #### P HOS, CMP ####[facility] Gglbntqchi[address] [place] [phone]. Farhat Leal Protein [Mass/Vol] 5.0 g/dL Critically low 6.4-8.2 [facility] Comment on above: Performed By: #### P HOS, CMP ####[facility] Hvfkyvtvcd9[address] [place] [phone]. Farhat Leal Sodium [Moles/Vol] 136 mmol/L Normal 136-145 [facility] Comment on above: Performed By: #### P HOS, CMP ####[facility] Plvzcszzio7[address] [place] [phone]. Farhat Leal Urea nitrogen [Mass/Vol] 14.0 mg/dL Normal 7.0-18.0 [facility] Comment on above: Performed By: #### P HOS, CMP ####[facility] Glxukoqesx700[address] [place], [place] [address]Dr. Farhat Leal Urea nitrogen/Creatinine [Mass ratio] 15.2 mg/mg Normal [facility] Comment on above: Performed By: #### P HOS, CMP ####[facility] Iemanxmsvj500[address] [place], [place] [address]Dr. Farhat Leal PROTIMEon 12-29-2021 INR Coag (PPP) [Relative time] 1.26 {INR} Normal [facility] Comment on above: Performed By: #### P T ####[facility] Kkmppjrsqo575[address] [place], [place] [address]Dr. Farhat Leal INR GUIDELINES SEE BELOW Normal [facility] Comment on above: Result Comment: MALINA RED INR: 2.0 - 3.0 CONDITIONS NOT LISTED BELOW 2.5 - 3.5 FOR PROSTHETIC HEART VALVE REPLACEMENT 2.5 - 3.5 RECURRENT THROMBOSIS Performed By: #### P T ####[facility] Kketqtumpd490[address] [place], [place] [address]Dr. Farhat Leal PT Coag (PPP) [Time] 13.4 s Critically high 9.0-11.6 [facility] Comment on above: Performed By: #### P T ####[facility] Ruzfndzqru98[address] [place], [place] [address]Dr. Farhat Leal XR MODIFIED BARIUM SWALLOWon 12-25-2021 XR MODIFIED BARIUM SWALLOW Normal [facility] FUNGAL CULTUREon 12-24-2021 Fungus (Mycology) Culture Final report Normal [facility] Comment on above: Performed By: #### C XFUN ####[facility] Jmjlgkhtwz29[address] [place], [place] [address]Dr. Farhat Leal Fungus Stain Final report Normal [facility] Comment on above: Performed By: #### C XFUN ####[facility] Revlzyjhxs324[address] [place], [place] [address]Dr. Farhat Leal Result 1 Comment Normal [facility] Comment on above: Result Comment: ANNI/ Calcofluor preparation: no fungus observed. Performed By: #### C XFUN ####[facility] Sbztmysheq[address] [place] [address]Dr. Farhat Leal Result Comment: No y east or mold isolated after 4 weeks. VANCOMYCIN TROUGHon 12-21-19 VANCOMYCIN TROUGH 14.4 ug/ml Normal 5.0-20.0 [facility] Comment on above: Performed By: #### V ANCT ####[facility] Kmewxmpphj236[address] [place], [place] [address]Dr. Farhat Leal CBC AUTO DIFFon 12-14-2021 BASO # 0.0 103/ul Normal 0.0-0.1 [facility] Comment on above: Performed By: #### C BC ####[facility] Vzmiknqaae[address] [place], [place] [address]Dr. Farhat Leal Basophils/100 WBC (Bld) 0.2 % Normal 0.2-2.0 [facility] Comment on above: Performed By: #### C BC ####[facility] Ryqlyjbzzp016[address] [place], [place] [address]Dr. Farhat Leal EO # 0.2 103/ul Normal 0.0-0.7 [facility] Comment on above: Performed By: #### C BC ####[facility] Gkhoobcbts[address] [place], [place] [address]DrSkylar Leal Eosinophils/100 WBC (Bld) 2.1 % Normal 0.9-7.0 [facility] Comment on above: Performed By: #### C BC ####[facility] Iekukwtxlb885[address] [place], [place] [address]Dr. Farhat Leal Erythrocyte distribution width (RBC) [Ratio] 18.2 % Critically high 11.0-15.0 [facility] Comment on above: Performed By: #### C BC ####[facility] Zzegyfcdss060[address] [place], [place] [address]Dr. Farhat Leal Hematocrit (Bld) [Volume fraction] 25.8 % Critically low 42.0-54.0 [facility] Comment on above: Performed By: #### C BC ####[facility] Nnidywqqja[address] [place], [place] [address]Dr. Farhat Leal Hemoglobin (Bld) [Mass/Vol] 8.0 g/dL Critically low 14.0-18.0 [facility] Comment on above: Performed By: #### C BC ####[facility] Zsjpsqxtui9[address] [place] [address]Dr. Farhat Leal IG # 0.08 10e3/ul Critically high 0.00-0.03 [facility] Comment on above: Performed By: #### C BC ####[facility] Nfbtbydfyv30[address] [place] [address]Dr. Farhat Elvis IG % 0.7 % Critically high 0.0-0.5 [facility] Comment on above: Performed By: #### C BC ####[facility] Zfdhfbaaqn9198 [place] [address]Dr. Farhat Elvis LYMPH # 0.9 103/ul Critically low 1.2-3.8 [facility] Comment on above: Performed By: #### C BC ####[facility] Shtshheekt6[address] [place] [address]Dr. Farhat Elvis Lymphocytes/100 WBC (Bld) 8.7 % Critically low 20.5-60.0 [facility] Comment on above: Performed By: #### C BC ####[facility] Gjimdyarlg[address] [place] [address]Dr. Farhat Elvis MANUAL DIFF REQ NO Normal [facility] Comment on above: Performed By: #### C BC ####[facility] Eujankmzmk[address] [place], [place] [address]Dr. Farhat Elvis MCH (RBC) [Entitic mass] 30.0 pg Normal 25.9-34.0 [facility] Comment on above: Performed By: #### C BC ####[facility] Esnbpetcpe[address] [place], [place] [address]Dr. Farhat Elvis MCHC (RBC) [Mass/Vol] 31.0 g/dL Normal 29.9-35.2 [facility] Comment on above: Performed By: #### C BC ####[facility] Chduywhgod[address] [place], [place] [address]Dr. Farhat Leal MCV (RBC) [Entitic vol] 96.6 fL Critically high 80.0-94.0 [facility] Comment on above: Performed By: #### C BC ####[facility] [address]phbscm[address] [place] [phone]. Farhat Leal MONO # 0.7 103/ul Normal 0.3-0.8 [facility] Comment on above: Performed By: #### C BC ####[facility] Yjjeyyyinq6[address] [place] [phone]. Farhat Leal Monocytes/100 WBC (Bld) 6.7 % Normal 1.7-12.0 [facility] Comment on above: Performed By: #### C BC ####[facility] Rtuprnadqv8[address] [place] [address]Dr. Farhat Leal NEUT # 8.8 103/ul Critically high 1.4-6.5 [facility] Comment on above: Performed By: #### C BC ####[facility] Ypszcsyztv[address] [place] [address]Dr. Farhat Leal Neutrophils/100 WBC (Bld) 81.6 % Critically high 43.0-75.0 [facility] Comment on above: Performed By: #### C BC ####[facility] Edntqrkwbg[address] [place] [address]Dr. Farhat Leal Platelet mean volume (Bld) [Entitic vol] 10.5 fL Normal 9.5-13.5 [facility] Comment on above: Performed By: #### C BC ####[facility] Bhjgpwpbqo260[address] [place] [phone]. Farhat Elvis PLT 285 103/ul Normal 150-450 [facility] Comment on above: Performed By: #### C BC ####[facility] Agqhtfxbsw2[address] [place] [phone]. Farhat Elvis RBC 2.67 106/ul Critically low 4.70-6.10 [facility] Comment on above: Performed By: #### C BC ####[facility] Mueyxisgmb[address] [place] [address]Dr. Farhat Elvis WBC 10.7 103/ul Normal 4.0-11.0 [facility] Comment on above: Performed By: #### C BC ####[facility] Pujwxvazsd[address] [place] [address]Dr. Farhat Elvis PROF CHEM 8 (BAS METB)on Anion gap [Moles/Vol] 12.4 mmol/L Normal [facility] Comment on above: Performed By: #### B MP ####[facility] Znjzqixqpj036[address] [place] [address]Dr. Farhat Leal Calcium [Mass/Vol] 7.8 mg/dL Critically low 8.5-10.1 [facility] Comment on above: Performed By: #### B MP ####[facility] Kewjpyoojd[address] [place] [address]Dr. Farhat Leal Chloride [Moles/Vol] 102 mmol/L Normal 98-107 [facility] Comment on above: Performed By: #### B MP ####[facility] Cnpqahztib[address] [place], [place] [address]Dr. Madelynlorri Leal CO2 [Moles/Vol] 28.1 mmol/L Normal 21.0-32.0 [facility] Comment on above: Performed By: #### B MP ####[facility] Nmlzoecrlw5[address] [place] [address]Dr. Farhat Leal Creatinine [Mass/Vol] 1.24 mg/dL Normal 0.70-1.30 [facility] Comment on above: Performed By: #### B MP ####[facility] Gscpfzdaxv[address] [place] [address]Dr. Farhat Leal EGFR-AF MONTENEGRIN >60 Normal >=60 [facility] Comment on above: Performed By: #### B MP ####[facility] Wcoftsdadp[address] [place] [address]Dr. Farhat Leal EGFR-NON AF MONTENEGRIN 57 mL/min/1.73m2 Critically low >=60 [facility] Comment on above: Performed By: #### B MP ####[facility] Byiuiqqepj64[address] [place] [address]Dr. Farhat Leal Glucose [Mass/Vol] 296 mg/dL Critically high 74-106 [facility] Comment on above: Performed By: #### B MP ####[facility] Itgnaamxnq4[address] [place] [address]Dr. Farhat Leal Potassium [Moles/Vol] 3.5 mmol/L Normal 3.5-5.1 [facility] Comment on above: Performed By: #### B MP ####[facility] Vkhdemcqei[address] [place], [place] [address]Dr. Farhat Leal Sodium [Moles/Vol] 139 mmol/L Normal 136-145 [facility] Comment on above: Performed By: #### B MP ####[facility] Hzlskwxplj04[address] [place], [place] [address]Dr. Farhat Leal Urea nitrogen [Mass/Vol] 27.0 mg/dL Critically high 7.0-18.0 [facility] Comment on above: Performed By: #### B MP ####[facility] Vjkinsbydt[address] [place], [place] [address]Dr. Farhat Leal Urea nitrogen/Creatinine [Mass ratio] 21.8 mg/mg Normal [facility] Comment on above: Performed By: #### B MP ####[facility] Pppqwmgbby[address] [place], [place] [address]Dr. Farhat Leal PROTIMEon 12-14-2021 INR Coag (PPP) [Relative time] 3.36 {INR} Normal [facility] Comment on above: Performed By: #### P T ####[facility] Jjuthtcjrj[address] [place], [place] [address]Dr. Farhat Leal INR GUIDELINES SEE BELOW Normal [facility] Comment on above: Result Comment: MALINA RED INR: 2.0 - 3.0 CONDITIONS NOT LISTED BELOW 2.5 - 3.5 FOR PROSTHETIC HEART VALVE REPLACEMENT 2.5 - 3.5 RECURRENT THROMBOSIS Performed By: #### P T ####[facility] Rqytcawres[address] [place], [place] [address]Dr. Farhat Leal PT Coag (PPP) [Time] 33.5 s Critically high 9.0-11.6 [facility] Comment on above: Performed By: #### P T ####[facility] Fnlnybjfak[address] [place], [place] [address]LgSkylar Leal XR CHEST 1 Von 12-14-2021 XR CHEST 1 V Normal [facility] No Panel Informationon 12-01 BLANK _ [facility] Implant Date 04/22/2012 [facility] CHECKon AMS Duration (ms) 5 of 8 [facility] AMS Fallback Rate (bpm) DDIR [facility] AV Delay Adaptive Paced Minimum (ms) 300 ms [facility] AV Delay Adaptive Rate Maximum (bpm) 130 {beats}/min [facility] AV Delay Adaptive Rate Minimum (bpm) 70 {beats}/min [facility] AV Delay Adaptive Sensed Minimum (ms) 300 ms [facility] AV Delay Paced (ms) 300 ms [facility] AV Delay Sensed (ms) 300 ms [facility] Jaciel LV Pacing Polarity Unknown [facility] Jaciel LV Sensing Polarity Unknown [facility] Jaciel RA Pacing Amplitude (volts) 2.4 V [facility] Jaciel RA Pacing Polarity BI [facility] Jaciel RA Pacing Pulse Width (ms) 0.4 ms [facility] Jaciel RA Sensing Amplitude (mvolts) AUTO [facility] Jaciel RA Sensing Blanking Period (ms) 56 ms [facility] Jaciel RA Sensing Polarity BI [facility] Jaciel RA Sensing Refractory Period (ms) AUTO [facility] Jaciel RV Pacing Amplitude (volts) 3.4 V [facility] Jaciel RV Pacing Polarity BI [facility] Jaciel RV Pacing Pulse Width (ms) 0.4 ms [facility] Jaciel RV Sensing Amplitude (mvolts) AUTO [facility] Jaciel RV Sensing Blanking Period (ms) 30 ms [facility] Jaciel RV Sensing Polarity BI [facility] Jaciel RV Sensing Refractory Period (ms) 250 ms [facility] Hysteresis Rate (bpm) 60 {beats}/min [facility] Lead1 Mfg SUZET[employer] [facility] Lead2 Mfg [employer]ZET[employer] [facility] Location RA [facility] Location RV [facility] Lower Rate (bpm) 60 {beats}/min [facility] Max Sensor Rate (bmp) 130 {beats}/min [facility] Model [id number] Monika Dominguez [facility] Model [id number] [facility] Model [id number] [facility] Pacemaker Dependent? NO [facility] PM-Device Mfg BIO [facility] PM-PMT Intervention ON [facility] PM-PVC Intervention ON [facility] PM-Rate Modulation Acceleration Reaction 4 s [facility] PM-Rate Modulation Deceleration 0.5 m [facility] PM-Rate Modulation [place] 23 [facility] PM-Rate Modulation Threshold Medium [facility] RA Bipolar Impedance ohms 448 ohm [facility] Rhythm AF with controlled ventricular rate. [facility] RV Bipolar Impedance ohms 390 ohm [facility] Serial Number [id number] [facility] Serial Number [id number] [facility] Serial Number [id number] [facility] Thresh RA Sensing Amplitude (mvolts) 2.4 mV [facility] Thresh RV Capture Amplitude (volts) 1.8 V [facility] Thresh RV Capture Duration (ms) 0.4 ms [facility] Thresh RV Sensing Amplitude (mvolts) 2.4 mV [facility] Tracking Rate (bpm) 160 {beats}/min [facility] BNPon 11-28-2021 Natriuretic peptide B (Bld) [Mass/Vol] 85226.0 pg/mL Critically high <=1,800.0 [facility] Comment on above: Performed By: #### C MP, BNP, CRP ####[facility] Dvwglibjgl[address] [place], [place] [address]DrSkylar Leal CBC AUTO DIFFon 11-28-2021 BASO # 0.0 103/ul Normal 0.0-0.1 [facility] Comment on above: Performed By: #### C BC ####[facility] Cprjkcgdcu8516[address] [place], [place] [address]Dr. Farhat Leal Basophils/100 WBC (Bld) 0.3 % Normal 0.2-2.0 [facility] Comment on above: Performed By: #### C BC ####[facility] Aemarrisvr9045[address] [place], [place] [address]DrSkylar Leal EO # 0.1 103/ul Normal 0.0-0.7 [facility] Comment on above: Performed By: #### C BC ####[facility] Qfkdthctcp4440[address] [place], [place] [address]DrSkylar Leal Eosinophils/100 WBC (Bld) 1.0 % Normal 0.9-7.0 [facility] Comment on above: Performed By: #### C BC ####[facility] Tycrssreua6764[address] [place], [place] [address]DrSkylar Leal Erythrocyte distribution width (RBC) [Ratio] 14.0 % Normal 11.0-15.0 [facility] Comment on above: Performed By: #### C BC ####[facility] Oylgunaggf086[address] [place], [place] [address]DrSkylar Leal Hematocrit (Bld) [Volume fraction] 27.6 % Critically low 42.0-54.0 [facility] Comment on above: Performed By: #### C BC ####[facility] Llkjttqkek224173 [address] [place], [place] [address]DrSkylar Leal Hemoglobin (Bld) [Mass/Vol] 9.0 g/dL Critically low 14.0-18.0 [facility] Comment on above: Performed By: #### C BC ####[facility] Jfhoruicpz6632[address] [place], [place] [address]Dr. Farhat Leal IG # 0.12 10e3/ul Critically high 0.00-0.03 [facility] Comment on above: Performed By: #### C BC ####[facility] Pxplvznzro112[address] [place], [place] [address]DrSkylar Leal IG % 1.0 % Critically high 0.0-0.5 [facility] Comment on above: Performed By: #### C BC ####[facility] Gwvaaaqdfm9938[address] [place], [place] [address]DrSkylar Leal LYMPH # 1.2 103/ul Normal 1.2-3.8 [facility] Comment on above: Performed By: #### C BC ####[facility] Nqhwwgosou869[address] [place], [place] [address]DrSkylar Leal Lymphocytes/100 WBC (Bld) 9.9 % Critically low 20.5-60.0 [facility] Comment on above: Performed By: #### C BC ####[facility] Xyxjomhuir923[address] [place], [place] [address]DrSkylar Leal MANUAL DIFF REQ NO Normal [facility] Comment on above: Performed By: #### C BC ####[facility] Xnetcyykjd[address] [place] [address]DrSkylar Farhat Elvis MCH (RBC) [Entitic mass] 30.0 pg Normal 25.9-34.0 [facility] Comment on above: Performed By: #### C BC ####[facility] Wouyczzfmz577[address] [place], [place] [address]Dr. Farhat Leal MCHC (RBC) [Mass/Vol] 32.6 g/dL Normal 29.9-35.2 [facility] Comment on above: Performed By: #### C BC ####[facility] Ekuovubtkx2715[address] [place], [place] [address]DrSklyar Leal MCV (RBC) [Entitic vol] 92.0 fL Normal 80.0-94.0 [facility] Comment on above: Performed By: #### C BC ####[facility] Bsutcsalzt410[address] [place], [place] [address]DrSkylar Leal MONO # 1.1 103/ul Critically high 0.3-0.8 [facility] Comment on above: Performed By: #### C BC ####[facility] Ixwjwwofpt78[address] [place], [place] [address]DrSkylar Leal Monocytes/100 WBC (Bld) 9.3 % Normal 1.7-12.0 [facility] Comment on above: Performed By: #### C BC ####[facility] Tqeipzzwvz4450[address] [place], [place] [address]DrSkylar Leal NEUT # 9.3 103/ul Critically high 1.4-6.5 [facility] Comment on above: Performed By: #### C BC ####[facility] Ecqdbxlpgk918[address] [place], [place] [address]DrSkylar Leal Neutrophils/100 WBC (Bld) 78.5 % Critically high 43.0-75.0 [facility] Comment on above: Performed By: #### C BC ####[facility] Rjwvipljot[address] [place], [place] [address]Dr. Farhat Leal Platelet mean volume (Bld) [Entitic vol] 9.6 fL Normal 9.5-13.5 [facility] Comment on above: Performed By: #### C BC ####[facility] S[address]qutzear[address] [place] [address]Dr. Farhat Leal PLT 357 103/ul Normal 150-450 [facility] Comment on above: Performed By: #### C BC ####[facility] Yjzzvuyijv360[address] [place] [address]Dr. Farhat Leal RBC 3.00 106/ul Critically low 4.70-6.10 [facility] Comment on above: Performed By: #### C BC ####[facility] Evrhrdvlfu7[address] [place] [address]Dr. Farhat Leal WBC 11.8 103/ul Critically high 4.0-11.0 [facility] Comment on above: Performed By: #### C BC ####[facility] Jwhadsillu65[address] [place] [address]DrSkylar Farhat Elvis CRPon 11-28-2021 CRP 20.9 mg/dL Critically high <=1.0 [facility] Comment on above: Performed By: #### C MP, BNP, CRP ####[facility] Mrxrdndbnq26[address] [place] [address]Dr. Farhat Leal CULTURE OTHERon 11-28-2021 CULTURE OTHER Normal [facility] Comment on above: Performed By: #### O THCX ####[facility] Znxaauhgsw25[address] [place] [address]Dr. Farhat Leal CULTURE OTHER Normal [facility] Comment on above: Performed By: #### O THCX ####[facility] Eptyjhmamq6[address] [place] [address]Dr. Farhat Elvis PROF 14(COMP METB)on 022 Albumin [Mass/Vol] 1.4 g/dL Critically low 3.4-5.0 [facility] Comment on above: Performed By: #### C MP, BNP, CRP ####[facility] Edeuifhcfw[address] [place], [place] [address]Dr. Farhat Leal Albumin/Globulin [Mass ratio] 0.4 {ratio} Normal [facility] Comment on above: Performed By: #### C MP, BNP, CRP ####[facility] Drmlvbixda25[address] [place] [address]Dr. Farhat Leal ALP [Catalytic activity/Vol] 82 U/L Normal 46-116 [facility] Comment on above: Performed By: #### C MP, BNP, CRP ####[facility] Hqjcpkjgjv2654 [place] [address]Dr. Farhat Leal ALT [Catalytic activity/Vol] 20 U/L Normal 16-63 [facility] Comment on above: Performed By: #### C MP, BNP, CRP ####[facility] Ysafmsqrpu14[address] [place] [address]Dr. Madelynlorri Leal Anion gap [Moles/Vol] 13.0 mmol/L Normal [facility] Comment on above: Performed By: #### C MP, BNP, CRP ####[facility] Sfzuhbduxs49[address] [place] [address]Dr. Farhat Leal AST [Catalytic activity/Vol] 33 U/L Normal 15-37 [facility] Comment on above: Performed By: #### C MP, BNP, CRP ####[facility] Ojdcqnqjgq4891 [place] [address]Dr. Farhat Elvis Bilirubin [Mass/Vol] 0.7 mg/dL Normal 0.2-1.0 [facility] Comment on above: Performed By: #### C MP, BNP, CRP ####[facility] Zvalvtkhvr87[address] [place] [address]Dr. Farhat Elvis Calcium [Mass/Vol] 8.4 mg/dL Critically low 8.5-10.1 [facility] Comment on above: Performed By: #### C MP, BNP, CRP ####[facility] Rlntuusfsx37[address] [place] [address]Dr. Farhat Leal Chloride [Moles/Vol] 100 mmol/L Normal 98-107 [facility] Comment on above: Performed By: #### C MP, BNP, CRP ####[facility] Qvbafbzroe8800 [place] [address]Dr. Farhat Leal CO2 [Moles/Vol] 23.7 mmol/L Normal 21.0-32.0 [facility] Comment on above: Performed By: #### C MP, BNP, CRP ####[facility] Ovagvlambb72[address] [place] [address]Dr. Farhat Leal Creatinine [Mass/Vol] 1.70 mg/dL Critically high 0.70-1.30 [facility] Comment on above: Performed By: #### C MP, BNP, CRP ####[facility] Eywumyjlge1487 [place] [address]Dr. Farhat Leal EGFR-AF MONTENEGRIN 48 mL/min/1.73m2 Critically low >=60 [facility] Comment on above: Performed By: #### C MP, BNP, CRP ####[facility] Xcntikvbre893[address] [place], [place] [address]Dr. Farhat Elvis EGFR-NON AF MONTENEGRIN 39 mL/min/1.73m2 Critically low >=60 [facility] Comment on above: Performed By: #### C MP, BNP, CRP ####[facility] Gvkuutsymw9938[address] [place], [place] [address]Dr. Farhat Leal Globulin (S) [Mass/Vol] 3.6 g/dL Normal [facility] Comment on above: Performed By: #### C MP, BNP, CRP ####[facility] Syfvvmfajx0608 [place] [address]Dr. Farhat Leal Glucose [Mass/Vol] 232 mg/dL Critically high 74-106 [facility] Comment on above: Performed By: #### C MP, BNP, CRP ####[facility] Tilafnnqox8341 [place] [address]Dr. Farhat Leal Potassium [Moles/Vol] 3.7 mmol/L Normal 3.5-5.1 [facility] Comment on above: Performed By: #### C MP, BNP, CRP ####[facility] Kizcrsfhsc765[address] [place], [place] [address]Dr. Farhat Leal Protein [Mass/Vol] 5.0 g/dL Critically low 6.4-8.2 [facility] Comment on above: Performed By: #### C MP, BNP, CRP ####[facility] Oakrfkduzy4384 [place] [address]Dr. Farhat Leal Sodium [Moles/Vol] 133 mmol/L Critically low 136-145 [facility] Comment on above: Performed By: #### C MP, BNP, CRP ####[facility] Baknjjelas4675[address] [place], [place] [address]Dr. Farhat Leal Urea nitrogen [Mass/Vol] 52.0 mg/dL Critically high 7.0-18.0 [facility] Comment on above: Performed By: #### C MP, BNP, CRP ####[facility] Rtthcjjtdn726[address] [place], [place] [address]Dr. Farhat Leal Urea nitrogen/Creatinine [Mass ratio] 30.6 mg/mg Normal [facility] Comment on above: Performed By: #### C MP, BNP, CRP ####[facility] Dzggpgyxhd9088[address] [place], [place] [address]Dr. Farhat Leal PROTIMEon 11-28-2021 INR Coag (PPP) [Relative time] 1.29 {INR} Normal [facility] Comment on above: Performed By: #### P T ####[facility] Nbreczzbcu574[address] [place], [place] [address]Dr. Farhat Leal INR GUIDELINES SEE BELOW Normal [facility] Comment on above: Result Comment: MALINA RED INR: 2.0 - 3.0 CONDITIONS NOT LISTED BELOW 2.5 - 3.5 FOR PROSTHETIC HEART VALVE REPLACEMENT 2.5 - 3.5 RECURRENT THROMBOSIS Performed By: #### P T ####[facility] Vapzqdslds9469[address] [place], [place] [address]Dr. Farhat Leal PT Coag (PPP) [Time] 13.7 s Critically high 9.0-11.6 [facility] Comment on above: Performed By: #### P T ####[facility] Kcflzoszta160[address] [place], [place] [address]Dr. Farhat Leal [facility] 77 mm/hr Critically high <=20 [facility] Comment on above: Performed By: #### S EDR ####[facility] Nbhrxeiwdr867[address] [place], [place] [address]Dr. Farhat Leal XR CHEST 2 Von 11-28-2021 XR CHEST 2 V Normal [facility] BNPon 11-27-2021 Natriuretic peptide B (Bld) [Mass/Vol] 31432.0 pg/mL Critically high <=1,800.0 [facility] Comment on above: Performed By: #### B MOVIE EXTRA, CMP, CRP ####[facility] Weauojjaai6067[address] [place], [place] [address]Dr. Farhat Leal CBC AUTO DIFFon 11-27-2021 BASO # 0.0 103/ul Normal 0.0-0.1 [facility] Comment on above: Performed By: #### C BC ####[facility] Avszhfrjsw[address] [place], [place] [address]Dr. Farhat Leal Basophils/100 WBC (Bld) 0.2 % Normal 0.2-2.0 [facility] Comment on above: Performed By: #### C BC ####[facility] Izujuwnvrk[address]22[address] [place], [place] [address]Dr. Farhat Leal EO # 0.2 103/ul Normal 0.0-0.7 [facility] Comment on above: Performed By: #### C BC ####[facility] Fenipvcyom[address] [place], [place] [address]Dr. Farhat Leal Eosinophils/100 WBC (Bld) 1.9 % Normal 0.9-7.0 [facility] Comment on above: Performed By: #### C BC ####[facility] Gtwtnivech8520[address] [place], [place] [address]Dr. Farhat Leal Erythrocyte distribution width (RBC) [Ratio] 13.9 % Normal 11.0-15.0 [facility] Comment on above: Performed By: #### C BC ####[facility] Oimbbvxbhe5860[address] [place], [place] [address]Dr. Farhat Leal Hematocrit (Bld) [Volume fraction] 28.7 % Critically low 42.0-54.0 [facility] Comment on above: Performed By: #### C BC ####[facility] Ldynkhzayz034[address] [place] [id number] Farhat Elvis Hemoglobin (Bld) [Mass/Vol] 9.3 g/dL Critically low 14.0-18.0 [facility] Comment on above: Performed By: #### C BC ####[facility] Jyqeqsdgoq3[address] [place] [id number] Joshilorri Elvis IG # 0.14 10e3/ul Critically high 0.00-0.03 [facility] Comment on above: Performed By: #### C BC ####[facility] Vhqniqsdxr9095 [place] [address]DrSkylar Leal IG % 1.2 % Critically high 0.0-0.5 [facility] Comment on above: Performed By: #### C BC ####[facility] Naqmfsgeuj57[address] [place], [place] [address]DrSkylar Leal LYMPH # 1.1 103/ul Critically low 1.2-3.8 [facility] Comment on above: Performed By: #### C BC ####[facility] Smfpmlwlmf67[address] [place] [phone] Leal Lymphocytes/100 WBC (Bld) 9.4 % Critically low 20.5-60.0 [facility] Comment on above: Performed By: #### C BC ####[facility] Xamkxpdmjp35[address] [place] [address]DrSkylar Leal MANUAL DIFF REQ NO Normal [facility] Comment on above: Performed By: #### C BC ####[facility] Eoaijgmvab2086 [place] [phone] Leal MCH (RBC) [Entitic mass] 29.7 pg Normal 25.9-34.0 [facility] Comment on above: Performed By: #### C BC ####[facility] Penbdoskqs4409 [place] [phone] Leal MCHC (RBC) [Mass/Vol] 32.4 g/dL Normal 29.9-35.2 [facility] Comment on above: Performed By: #### C BC ####[facility] Sztqjgnuex2790 [place] [address]DrSkylar Leal MCV (RBC) [Entitic vol] 91.7 fL Normal 80.0-94.0 [facility] Comment on above: Performed By: #### C BC ####[facility] Fztvwhuzie3367 [place] [address]DrSkylar Leal MONO # 1.1 103/ul Critically high 0.3-0.8 [facility] Comment on above: Performed By: #### C BC ####[facility] Egswhrtydz5232 [place] [address]DrSkylar Leal Monocytes/100 WBC (Bld) 9.7 % Normal 1.7-12.0 [facility] Comment on above: Performed By: #### C BC ####[facility] Bptmeftlgi[address] [place], [place] [address]DrSkylar Leal NEUT # 9.2 103/ul Critically high 1.4-6.5 [facility] Comment on above: Performed By: #### C BC ####[facility] Lrgokzlgjx397[address] [place], [place] [address]DrSkylar Leal Neutrophils/100 WBC (Bld) 77.6 % Critically high 43.0-75.0 [facility] Comment on above: Performed By: #### C BC ####[facility] Hxtwmjauyf9925[address] [place], [place] [address]DrSkylar Leal Platelet mean volume (Bld) [Entitic vol] 9.5 fL Normal 9.5-13.5 [facility] Comment on above: Performed By: #### C BC ####[facility] Ktyjowpwew0115[address] [place], [place] [address]DrSkylar Leal PLT 375 103/ul Normal 150-450 [facility] Comment on above: Performed By: #### C BC ####[facility] Pyggwrytup[address] [place], [place] [id number] Leal RBC 3.13 106/ul Critically low 4.70-6.10 [facility] Comment on above: Performed By: #### C BC ####[facility] Uhkkyjarxv7200 [place] [address]Dr. Farhat Leal WBC 11.8 103/ul Critically high 4.0-11.0 [facility] Comment on above: Performed By: #### C BC ####[facility] Hrybjylmpz6276 [place] [phone]. Farhat Leal CRPon 11-27-2021 CRP 24.5 mg/dL Critically high <=1.0 [facility] Comment on above: Performed By: #### B MOVIE EXTRA, CMP, CRP ####[facility] Cxsgycstss09[address] [place] [address]Dr. Madelynlorri Leal CULTURE OTHERon 11-27-2021 CULTURE OTHER Normal [facility] Comment on above: Performed By: #### O THCX ####[facility] Ufokyqfggf34[address] [place], [place] [address]Dr. Madelynlorri Leal CULTURE OTHER Normal [facility] Comment on above: Performed By: #### O THCX ####[facility] Ncxhzjlxnh07[address] [place], [place] [address]Dr. Madelynlorri Leal CULTURE WOUNDon 11-27-2021 CULTURE WOUND Normal [facility] Comment on above: Performed By: #### W OUNDCX ####[facility] Wliedkloeo220[address] [place], [place] [address]Dr. Farhat Leal POINT OF CARE GLUCOSEon 11-15 Glucose [Mass/Vol] 147 mg/dL Critically high 74-106 [facility] Comment on above: Performed By: #### P OCGLUC ####[facility] Egjsuivfff5037[address] [place], [place] [address]Dr. Farhat Leal PROF 14(COMP METB)on 022 Albumin [Mass/Vol] 1.4 g/dL Critically low 3.4-5.0 [facility] Comment on above: Performed By: #### B MOVIE EXTRA, CMP, CRP ####[facility] Izdyzqintg8832 [place] [address]Dr. Madelynlorri Leal Albumin/Globulin [Mass ratio] 0.4 {ratio} Normal [facility] Comment on above: Performed By: #### B MOVIE EXTRA, CMP, CRP ####[facility] Xqczsroiri2732 [place] [address]Dr. Farhat Leal ALP [Catalytic activity/Vol] 82 U/L Normal 46-116 [facility] Comment on above: Performed By: #### B MOVIE EXTRA, CMP, CRP ####[facility] Dkbbisoczq3901[address] [place], [place] [address]Dr. Farhat Elvis ALT [Catalytic activity/Vol] 22 U/L Normal 16-63 [facility] Comment on above: Performed By: #### B MOVIE EXTRA, CMP, CRP ####[facility] Momraipnxb3169[address] [place], [place] [address]Dr. Frahat Leal Anion gap [Moles/Vol] 14.2 mmol/L Normal [facility] Comment on above: Performed By: #### B MOVIE EXTRA, CMP, CRP ####[facility] Lochboqhag330[address] [place], [place] [address]Dr. Farhat Elvis AST [Catalytic activity/Vol] 35 U/L Normal 15-37 [facility] Comment on above: Performed By: #### B MOVIE EXTRA, CMP, CRP ####[facility] Jvbyjocngl06[address] [place], [place] [address]Dr. Farhat Leal Bilirubin [Mass/Vol] 0.7 mg/dL Normal 0.2-1.0 [facility] Comment on above: Performed By: #### B MOVIE EXTRA, CMP, CRP ####[facility] Ngxzeqqueb913[address] [place], [place] [address]Dr. Farhat Leal Calcium [Mass/Vol] 8.2 mg/dL Critically low 8.5-10.1 [facility] Comment on above: Performed By: #### B MOVIE EXTRA, CMP, CRP ####[facility] Rwyrbuuean3[address] [place] [address]Dr. Farhat Leal Chloride [Moles/Vol] 99 mmol/L Normal 98-107 [facility] Comment on above: Performed By: #### B MOVIE EXTRA, CMP, CRP ####[facility] Uqzdsxctmv5243 [place] [address]Dr. Farhat Leal CO2 [Moles/Vol] 22.6 mmol/L Normal 21.0-32.0 [facility] Comment on above: Performed By: #### B MOVIE EXTRA, CMP, CRP ####[facility] Oehrksfdai05[address] [place] [address]Dr. Farhat Leal Creatinine [Mass/Vol] 1.73 mg/dL Critically high 0.70-1.30 [facility] Comment on above: Performed By: #### B MOVIE EXTRA, CMP, CRP ####[facility] Ggkcwunyng9[address] [place] [address]Dr. Farhat Leal EGFR-AF MONTENEGRIN 47 mL/min/1.73m2 Critically low >=60 [facility] Comment on above: Performed By: #### B MOVIE EXTRA, CMP, CRP ####[facility] Fsmjtrvghh6[address] [place] [address]Dr. Farhat Leal EGFR-NON AF MONTENEGRIN 38 mL/min/1.73m2 Critically low >=60 [facility] Comment on above: Performed By: #### B MOVIE EXTRA, CMP, CRP ####[facility] Grlxgykfhw6641 [place] [address]Dr. Farhat Leal Globulin (S) [Mass/Vol] 3.7 g/dL Normal [facility] Comment on above: Performed By: #### B MOVIE EXTRA, CMP, CRP ####[facility] Hotfoddgsm[address] [place] [address]Dr. Farhat Leal Glucose [Mass/Vol] 220 mg/dL Critically high 74-106 [facility] Comment on above: Performed By: #### B MOVIE EXTRA, CMP, CRP ####[facility] Cnsqiccjgi9866 [place] [address]Dr. Farhat Leal Potassium [Moles/Vol] 3.8 mmol/L Normal 3.5-5.1 [facility] Comment on above: Performed By: #### B MOVIE EXTRA, CMP, CRP ####[facility] Ccffqgwgoe55[address] [place] [address]Dr. Farhat Leal Protein [Mass/Vol] 5.1 g/dL Critically low 6.4-8.2 [facility] Comment on above: Performed By: #### B MOVIE EXTRA, CMP, CRP ####[facility] Ycjwnjowut48[address] [place] [address]Dr. Farhat Leal Sodium [Moles/Vol] 132 mmol/L Critically low 136-145 [facility] Comment on above: Performed By: #### B MOVIE EXTRA, CMP, CRP ####[facility] Iletbpovvv[address] [place], [place] [address]Dr. Farhat Leal Urea nitrogen [Mass/Vol] 49.0 mg/dL Critically high 7.0-18.0 [facility] [facility] Comment on above: Performed By: #### B MOVIE EXTRA, CMP, CRP ####[facility] Yoqqcwwmrx[address] [place], [place] [address]Dr. Farhat Leal Urea nitrogen/Creatinine [Mass ratio] 28.3 mg/mg Normal [facility] Comment on above: Performed By: #### B MOVIE EXTRA, CMP, CRP ####[facility] Qtkgouyupx3265[address] [place], [place] [address]Dr. Farhat Leal PROTIMEon 11-27-2021 INR Coag (PPP) [Relative time] 1.25 {INR} Normal [facility] Comment on above: Performed By: #### P T ####[facility] Yszomvskzt[address] [place], [place] [address]Dr. Farhat Leal INR GUIDELINES SEE BELOW Normal [facility] Comment on above: Result Comment: MALINA RED INR: 2.0 - 3.0 CONDITIONS NOT LISTED BELOW 2.5 - 3.5 FOR PROSTHETIC HEART VALVE REPLACEMENT 2.5 - 3.5 RECURRENT THROMBOSIS Performed By: #### P T ####[facility] Amwsmzscwe065[address] [place], [place] [address]Dr. Farhat Leal PT Coag (PPP) [Time] 13.3 s Critically high 9.0-11.6 [facility] Comment on above: Performed By: #### P T ####[facility] Unyvbusepl201[address] [place], [place] [address]DrSkylar Leal SED [facility]ATE 60 mm/hr Critically high <=20 [facility] Comment on above: Performed By: #### S EDR ####[facility] Nfhuehoqln413[address] [place], [place] [address]Dr. Farhat Leal VANCOMYCIN TROUGHon 11-28-19 VANCOMYCIN TROUGH 21.2 ug/ml Critically high 5.0-20.0 Th e [facility] Comment on above: Performed By: #### V ANCT ####[facility] Qayucuvvex389[address] [place], [place] [address]Dr. Farhat Leal XR CHEST 1 Von 11-27-2021 XR CHEST 1 V Normal [facility] BNPon 11-26-2021 Natriuretic peptide B (Bld) [Mass/Vol] 37466.0 pg/mL Critically high <=1,800.0 [facility] Comment on above: Performed By: #### B MOVIE EXTRA, CRP, CMP ####[facility] Lgsdoeacax696[address] [place], [place] [address]Dr. Farhat Leal CBC AUTO DIFFon 11-26-2021 BASO # 0.0 103/ul Normal 0.0-0.1 [facility] Comment on above: Performed By: #### C BC ####[facility] Layaytohjn632[address] [place], [place] [address]Dr. Farhat Leal Basophils/100 WBC (Bld) 0.2 % Normal 0.2-2.0 [facility] Comment on above: Performed By: #### C BC ####[facility] Cmnhxgeqoz956[address] [place], [place] [address]DrSkylar Leal EO # 0.0 103/ul Normal 0.0-0.7 [facility] Comment on above: Performed By: #### C BC ####[facility] Fvusphywbh514[address] [place], [place] [address]DrSkylar Leal Eosinophils/100 WBC (Bld) 0.3 % Critically low 0.9-7.0 [facility] Comment on above: Performed By: #### C BC ####[facility] Nhmzygnlam459[address] [place], [place] [address]DrSkylar Leal Erythrocyte distribution width (RBC) [Ratio] 13.9 % Normal 11.0-15.0 [facility] Comment on above: Performed By: #### C BC ####[facility] Ahzbzmfomq[address] [place] [address]DrSkylar Leal Hematocrit (Bld) [Volume fraction] 27.3 % Critically low 42.0-54.0 [facility] Comment on above: Performed By: #### C BC ####[facility] Cpzubofyuf3640[address] [place], [place] [address]DrSkylar Leal Hemoglobin (Bld) [Mass/Vol] 8.8 g/dL Critically low 14.0-18.0 [facility] Comment on above: Performed By: #### C BC ####[facility] Szjpuyyvba064[address] [place], [place] [address]DrSkylar Leal IG # 0.17 10e3/ul Critically high 0.00-0.03 [facility] Comment on above: Performed By: #### C BC ####[facility] Ugqqjkrjmx900[address] [place], [place] [address]DrSkylar Leal IG % 1.2 % Critically high 0.0-0.5 [facility] Comment on above: Performed By: #### C BC ####[facility] Zlvsvbphmc295[address] [place], [place] [address]DrSkylar Leal LYMPH # 0.7 103/ul Critically low 1.2-3.8 [facility] Comment on above: Performed By: #### C BC ####[facility] Lmhqmfoxuq4480[address] [place], [place] [address]DrSkylar Leal Lymphocytes/100 WBC (Bld) 4.8 % Critically low 20.5-60.0 [facility] Comment on above: Performed By: #### C BC ####[facility] Bshsmaqjev24[address] [place], [place] [address]DrSkylar Leal MANUAL DIFF REQ NO Normal [facility] Comment on above: Performed By: #### C BC ####[facility] Cbizfnptqb7389[address] [place], [place] [address]DrSkylar Leal MCH (RBC) [Entitic mass] 29.9 pg Normal 25.9-34.0 [facility] Comment on above: Performed By: #### C BC ####[facility] Elgbikmywo58[address] [place] [address]DrSkylar Leal MCHC (RBC) [Mass/Vol] 32.2 g/dL Normal 29.9-35.2 [facility] Comment on above: Performed By: #### C BC ####[facility] Eudgshpkrf7328 [place] [address]DrSkylar Leal MCV (RBC) [Entitic vol] 92.9 fL Normal 80.0-94.0 [facility] Comment on above: Performed By: #### C BC ####[facility] Jvxzuluvzb6849[address] [place], [place] [address]DrSkylar Leal MONO # 1.3 103/ul Critically high 0.3-0.8 [facility] Comment on above: Performed By: #### C BC ####[facility] Mffksnsqek8569[address] [place], [place] [address]DrSkylar Leal Monocytes/100 WBC (Bld) 9.6 % Normal 1.7-12.0 [facility] Comment on above: Performed By: #### C BC ####[facility] Scvvothubt8314[address] [place], [place] [address]DrSkylar Leal NEUT # 11.4 103/ul Critically high 1.4-6.5 [facility] Comment on above: Performed By: #### C BC ####[facility] Tcsugqvnkt55[address] [place], [place] [address]DrSkylar Leal Neutrophils/100 WBC (Bld) 83.9 % Critically high 43.0-75.0 [facility] Comment on above: Performed By: #### C BC ####[facility] Yjtpdgbepd6[address] [place], [place] [address]DrSkylar Leal Platelet mean volume (Bld) [Entitic vol] 9.6 fL Normal 9.5-13.5 [facility] Comment on above: Performed By: #### C BC ####[facility] Qcobhuvrbt499[address] [place], [place] [address]Dr. Farhat eLal PLT 395 103/ul Normal 150-450 [facility] Comment on above: Performed By: #### C BC ####[facility] Ydcstdduzs6422 [place] [address]Dr. Farhat Leal RBC 2.94 106/ul Critically low 4.70-6.10 [facility] Comment on above: Performed By: #### C BC ####[facility] Rhjiqjnrmy47[address] [place] [address]Dr. Farhat Leal WBC 13.6 103/ul Critically high 4.0-11.0 [facility] Comment on above: Performed By: #### C BC ####[facility] Nyucgosgix[address] [place] [address]Dr. Farhat Leal CRPon 11-26-2021 CRP [Mass/Vol] mg/L Critically high <=1.0 [facility] Comment on above: Performed By: #### B MOVIE EXTRA, CRP, CMP ####[facility] Uvhkevbjdz7[address] [place] [address]Dr. Farhat Leal PROF 14(COMP METB)on 022 Albumin [Mass/Vol] 1.5 g/dL Critically low 3.4-5.0 [facility] Comment on above: Performed By: #### B MOVIE EXTRA, CRP, CMP ####[facility] Tbucabuhoq8250 [place] [address]Dr. Farhat Leal Albumin/Globulin [Mass ratio] 0.4 {ratio} Normal [facility] Comment on above: Performed By: #### B MOVIE EXTRA, CRP, CMP ####[facility] Qpgltbnkak5161 [place] [address]Dr. Farhat Leal ALP [Catalytic activity/Vol] 88 U/L Normal 46-116 [facility] Comment on above: Performed By: #### B MOVIE EXTRA, CRP, CMP ####[facility] Cqciopsqxz6623 [place] [address]Dr. Farhat Leal ALT [Catalytic activity/Vol] 29 U/L Normal 16-63 [facility] Comment on above: Performed By: #### B MOVIE EXTRA, CRP, CMP ####[facility] H[address]pszmeoe59[address] [place] [id number]. Farhat Leal Anion gap [Moles/Vol] 13.3 mmol/L Normal [facility] Comment on above: Performed By: #### B MOVIE EXTRA, CRP, CMP ####[facility] Xuhkygimvm9648 [place] [address]Dr. Farhat Leal AST [Catalytic activity/Vol] 32 U/L Normal 15-37 [facility] Comment on above: Performed By: #### B MOVIE EXTRA, CRP, CMP ####[facility] Vhvcgtvgma7752 [place] [address]Dr. Farhat Leal Bilirubin [Mass/Vol] 0.6 mg/dL Normal 0.2-1.0 [facility] Comment on above: Performed By: #### B MOVIE EXTRA, CRP, CMP ####[facility] Qyvtndwxif5398 [place] [address]Dr. Farhat Leal Calcium [Mass/Vol] 8.0 mg/dL Critically low 8.5-10.1 [facility] Comment on above: Performed By: #### B MOVIE EXTRA, CRP, CMP ####[facility] Xmmqedccuh8121 [place] [address]Dr. Farhat Leal Chloride [Moles/Vol] 98 mmol/L Normal 98-107 [facility] Comment on above: Performed By: #### B MOVIE EXTRA, CRP, CMP ####[facility] Beaqnuhedq7733 [place] [address]Dr. Farhat Leal CO2 [Moles/Vol] 23.7 mmol/L Normal 21.0-32.0 [facility] Comment on above: Performed By: #### B MOVIE EXTRA, CRP, CMP ####[facility] Rwxhvnxuwn5436 [place] [address]Dr. Farhat Leal Creatinine [Mass/Vol] 2.08 mg/dL Critically high 0.70-1.30 [facility] Comment on above: Performed By: #### B MOVIE EXTRA, CRP, CMP ####[facility] Tvymyuwvyc3207 [place] [address]Dr. Farhat Leal EGFR-AF MONTENEGRIN 38 mL/min/1.73m2 Critically low >=60 [facility] Comment on above: Performed By: #### B MOVIE EXTRA, CRP, CMP ####[facility] Wdnwnhqedh99[address] [place] [address]Dr. Farhat Leal EGFR-NON AF MONTENEGRIN 31 mL/min/1.73m2 Critically low >=60 [facility] Comment on above: Performed By: #### B MOVIE EXTRA, CRP, CMP ####[facility] Nqtfnzvmhi9029[address] [place], [place] [address]Dr. Farhat Leal Globulin (S) [Mass/Vol] 3.7 g/dL Normal [facility] Comment on above: Performed By: #### B MOVIE EXTRA, CRP, CMP ####[facility] Rpkfxbijss649[address] [place], [place] [address]Dr. Farhat Leal Glucose [Mass/Vol] 315 mg/dL Critically high 74-106 [facility] Comment on above: Performed By: #### B MOVIE EXTRA, CRP, CMP ####[facility] Owesdsezfu794[address] [place], [place] [address]Dr. Farhat Leal Potassium [Moles/Vol] 4.0 mmol/L Normal 3.5-5.1 [facility] Comment on above: Performed By: #### B MOVIE EXTRA, CRP, CMP ####[facility] Lppmsckgba1969[address] [place], [place] [address]Dr. Farhat Leal Protein [Mass/Vol] 5.2 g/dL Critically low 6.4-8.2 [facility] Comment on above: Performed By: #### B MOVIE EXTRA, CRP, CMP ####[facility] Lmwllovnag5927[address] [place], [place] [address]Dr. Farhat Leal Sodium [Moles/Vol] 131 mmol/L Critically low 136-145 [facility] Comment on above: Performed By: #### B MOVIE EXTRA, CRP, CMP ####[facility] Yysutzljol9044[address] [place], [place] [address]Dr. Farhat Leal Urea nitrogen [Mass/Vol] 50.0 mg/dL Critically high 7.0-18.0 [facility] Comment on above: Performed By: #### B MOVIE EXTRA, CRP, CMP ####[facility] Cegxfzupom4814 [place] [address]Dr. Farhat Leal Urea nitrogen/Creatinine [Mass ratio] 24.0 mg/mg Normal [facility] Comment on above: Performed By: #### B MOVIE EXTRA, CRP, CMP ####[facility] Qhkalaepdr9090 [place] [address]Dr. Farhat Leal PROTIMEon 11-26-2021 INR Coag (PPP) [Relative time] 1.31 {INR} Normal [facility] Comment on above: Performed By: #### P T ####[facility] Okqdbfqdbj87[address] [place], [place] [address]Dr. Farhat Leal INR GUIDELINES SEE BELOW Normal [facility] Comment on above: Result Comment: MALINA RED INR: 2.0 - 3.0 CONDITIONS NOT LISTED BELOW 2.5 - 3.5 FOR PROSTHETIC HEART VALVE REPLACEMENT 2.5 - 3.5 RECURRENT THROMBOSIS Performed By: #### P T ####[facility] Rrpnbviwwc8[address] [place], [place] [address]Dr. Farhat Leal PT Coag (PPP) [Time] 13.9 s Critically high 9.0-11.6 [facility] Comment on above: Performed By: #### P T ####[facility] Edqsepzuda[address] [place], [place] [address]Dr. Farhat Leal SED RATE COBBS CREEKERGREN 2021 SED RATE 87 mm/hr Critically high <=20 [facility] Comment on above: Performed By: #### S EDR ####[facility] Jjhvhhdgug2227[address] [place], [place] [address]Dr. Farhat Leal BNPon 11-25-2021 Natriuretic peptide B (Bld) [Mass/Vol] 59174.0 pg/mL Critically high <=1,800.0 [facility] Comment on above: Performed By: #### C MP, BNP, CRP ####[facility] Ekclqzzcfj1115[address] [place], [place] [address]Dr. Farhat Leal CBC AUTO DIFFon 11-25-2021 BASO # 0.0 103/ul Normal 0.0-0.1 [facility] Comment on above: Performed By: #### C BC ####[facility] Bjzqxjfexp8[address] [place] [id number]. Farhat Leal Basophils/100 WBC (Bld) 0.4 % Normal 0.2-2.0 [facility] Comment on above: Performed By: #### C BC ####[facility] Vqztppnjjb1322 [place] [phone]. Farhat Leal EO # 0.1 103/ul Normal 0.0-0.7 [facility] Comment on above: Performed By: #### C BC ####[facility] Czldbellqi[address] [place], [place] [id number]. Farhat Leal Eosinophils/100 WBC (Bld) 1.2 % Normal 0.9-7.0 [facility] Comment on above: Performed By: #### C BC ####[facility] Xkspnaahoi24[address] [place], [place] [address]Dr. Farhat Leal Erythrocyte distribution width (RBC) [Ratio] 13.7 % Normal 11.0-15.0 [facility] Comment on above: Performed By: #### C BC ####[facility] Yedkrozxlg[address] [place], [place] [address]Dr. Farhat Leal Hematocrit (Bld) [Volume fraction] 29.6 % Critically low 42.0-54.0 [facility] Comment on above: Performed By: #### C BC ####[facility] Ncadoyvjmv312[address] [place], [place] [address]Dr. Farhat Leal Hemoglobin (Bld) [Mass/Vol] 9.3 g/dL Critically low 14.0-18.0 [facility] Comment on above: Performed By: #### C BC ####[facility] Svesvnfwet[address] [place], [place] [address]Dr. Farhat Leal IG # 0.15 10e3/ul Critically high 0.00-0.03 [facility] Comment on above: Performed By: #### C BC ####[facility] Ghzwawpkdj45[address] [place], [place] [address]Dr. Farhat Leal IG % 1.4 % Critically high 0.0-0.5 [facility] Comment on above: Performed By: #### C BC ####[facility] Nuafcwrgmn9286 [place] [address]Dr. Farhat Leal LYMPH # 0.8 103/ul Critically low 1.2-3.8 [facility] Comment on above: Performed By: #### C BC ####[facility] Jauhywwwcf4774 [place] [address]Dr. Farhat Leal Lymphocytes/100 WBC (Bld) 7.3 % Critically low 20.5-60.0 [facility] Comment on above: Performed By: #### C BC ####[facility] Hbytmarqzp53[address] [place] [address]Dr. Farhat Leal MANUAL DIFF REQ NO Normal [facility] Comment on above: Performed By: #### C BC ####[facility] Lujdqvfyls8740 [place] [address]Dr. Farhat Leal MCH (RBC) [Entitic mass] 29.3 pg Normal 25.9-34.0 [facility] Comment on above: Performed By: #### C BC ####[facility] Ikcmfowpgs[address] [place], [place] [address]Dr. Farhat Leal MCHC (RBC) [Mass/Vol] 31.4 g/dL Normal 29.9-35.2 [facility] Comment on above: Performed By: #### C BC ####[facility] Rlkgbrtyfe0473 [place] [address]Dr. Farhat Leal MCV (RBC) [Entitic vol] 93.4 fL Normal 80.0-94.0 [facility] Comment on above: Performed By: #### C BC ####[facility] Oxxxyrwmjp6710 [place] [address]Dr. Farhat Leal MONO # 1.3 103/ul Critically high 0.3-0.8 [facility] Comment on above: Performed By: #### C BC ####[facility] Mmpevustmd2732 [place] [id number]. Farhat Leal Monocytes/100 WBC (Bld) 12.3 % Critically high 1.7-12.0 [facility] Comment on above: Performed By: #### C BC ####[facility] Uivihselxr22[address] [place] [address]Dr. Farhat Leal NEUT # 8.4 103/ul Critically high 1.4-6.5 [facility] Comment on above: Performed By: #### C BC ####[facility] Csjxmxszyk9557 [place] [address]DrSkylar Leal Neutrophils/100 WBC (Bld) 77.4 % Critically high 43.0-75.0 [facility] Comment on above: Performed By: #### C BC ####[facility] Yualfenqvo8049 [place] [address]DrSkylar Leal Platelet mean volume (Bld) [Entitic vol] 9.8 fL Normal 9.5-13.5 [facility] Comment on above: Performed By: #### C BC ####[facility] Hlaifaggyx[address] [place], [place] [address]Dr. Farhat Leal PLT 390 103/ul Normal 150-450 [facility] Comment on above: Performed By: #### C BC ####[facility] Fwjaaktzaf[address] [place], [place] [address]Dr. Farhat Leal RBC 3.17 106/ul Critically low 4.70-6.10 [facility] Comment on above: Performed By: #### C BC ####[facility] Rjreycidcg3713 [place] [address]DrSkylar Leal WBC 10.9 103/ul Normal 4.0-11.0 [facility] Comment on above: Performed By: #### C BC ####[facility] Mnlpawavmr2376 [place] [phone] Leal CRPon 11-25-2021 CRP 27.2 mg/dL Critically high <=1.0 [facility] Comment on above: Performed By: #### C MP, BNP, CRP ####[facility] Llcqowywgs2084 [place] [address]DrSkylar Leal PROF 14(COMP METB)on 022 Albumin [Mass/Vol] 1.5 g/dL Critically low 3.4-5.0 [facility] Comment on above: Performed By: #### C MP, BNP, CRP ####[facility] Lbnaapbbai14[address] [place] [address]Dr. Farhat Leal Albumin/Globulin [Mass ratio] 0.4 {ratio} Normal [facility] Comment on above: Performed By: #### C MP, BNP, CRP ####[facility] Yvarkbdzbr2718 [place] [address]Dr. Farhat Leal ALP [Catalytic activity/Vol] 86 U/L Normal 46-116 [facility] Comment on above: Performed By: #### C MP, BNP, CRP ####[facility] Qssosaayhm6260 [place] [address]Dr. Farhat Leal ALT [Catalytic activity/Vol] 34 U/L Normal 16-63 [facility] Comment on above: Performed By: #### C MP, BNP, CRP ####[facility] Gouawuitws[address] [place], [place] [address]Dr. Farhat Leal Anion gap [Moles/Vol] 17.8 mmol/L Normal [facility] Comment on above: Performed By: #### C MP, BNP, CRP ####[facility] Qblqqewvgz[address] [place], [place] [address]Dr. Farhat Leal AST [Catalytic activity/Vol] 48 U/L Critically high 15-37 [facility] Comment on above: Performed By: #### C MP, BNP, CRP ####[facility] Dsmzzihrif2025 [place] [address]Dr. Farhat Leal Bilirubin [Mass/Vol] 0.8 mg/dL Normal 0.2-1.0 [facility] Comment on above: Performed By: #### C MP, BNP, CRP ####[facility] Inpwvunbrs855[address] [place], [place] [address]Dr. Farhat Leal Calcium [Mass/Vol] 8.3 mg/dL Critically low 8.5-10.1 [facility] Comment on above: Performed By: #### C MP, BNP, CRP ####[facility] Pulhjsibhn2942 [place] [address]Dr. Farhat Leal Chloride [Moles/Vol] 97 mmol/L Critically low 98-107 [facility] Comment on above: Performed By: #### C MP, BNP, CRP ####[facility] Hhalueiqgc8888 [place] [address]Dr. Farhat Leal CO2 [Moles/Vol] 23.0 mmol/L Normal 21.0-32.0 [facility] Comment on above: Performed By: #### C MP, BNP, CRP ####[facility] Kbxtyhwqpj[address] [place], [place] [address]Dr. Farhat Leal Creatinine [Mass/Vol] 1.68 mg/dL Critically high 0.70-1.30 [facility] Comment on above: Performed By: #### C MP, BNP, CRP ####[facility] Ewslnqzbbj648[address] [place], [place] [address]Dr. Farhat Elvis EGFR-AF MONTENEGRIN 48 mL/min/1.73m2 Critically low >=60 [facility] Comment on above: Performed By: #### C MP, BNP, CRP ####[facility] Cfouyrfgys470[address] [place], [place] [address]Dr. aFrhat Leal EGFR-NON AF MONTENEGRIN 40 mL/min/1.73m2 Critically low >=60 [facility] Comment on above: Performed By: #### C MP, BNP, CRP ####[facility] Bfqruforic9834[address] [place], [place] [address]Dr. Farhat Leal Globulin (S) [Mass/Vol] 3.9 g/dL Normal [facility] Comment on above: Performed By: #### C MP, BNP, CRP ####[facility] Gbbazvrelu2817[address] [place], [place] [address]Dr. Farhat Leal Glucose [Mass/Vol] 282 mg/dL Critically high 74-106 [facility] Comment on above: Performed By: #### C MP, BNP, CRP ####[facility] Heptdlzync70[address] [place], [place] [address]Dr. Farhat Leal Potassium [Moles/Vol] 4.8 mmol/L Normal 3.5-5.1 [facility] Comment on above: Performed By: #### C MP, BNP, CRP ####[facility] Lmrnrysxpt[address] [place], [place] [address]Dr. Farhat Leal Protein [Mass/Vol] 5.4 g/dL Critically low 6.4-8.2 [facility] Comment on above: Performed By: #### C MP, BNP, CRP ####[facility] Bsmqddcevg320[address] [place], [place] [address]Dr. Farhat Leal Sodium [Moles/Vol] 133 mmol/L Critically low 136-145 [facility] Comment on above: Performed By: #### C MP, BNP, CRP ####[facility] Vzlbhtockj427[address] [place], [place] [address]Dr. Farhat Leal Urea nitrogen [Mass/Vol] 40.0 mg/dL Critically high 7.0-18.0 [facility] Comment on above: Performed By: #### C MP, BNP, CRP ####[facility] Mprbqnquyx6[address] [place], [place] [address]Dr. Farhat Leal Urea nitrogen/Creatinine [Mass ratio] 23.8 mg/mg Normal [facility] Comment on above: Performed By: #### C MP, BNP, CRP ####[facility] Hyqdtcavdu173[address] [place], [place] [address]Dr. Farhat Leal PROTIMEon 11-25-2021 INR Coag (PPP) [Relative time] 1.48 {INR} Normal [facility] Comment on above: Performed By: #### P T ####[facility] Rylufsuqrb[address] [place], [place] [address]Dr. Farhat Leal INR GUIDELINES SEE BELOW Normal [facility] Comment on above: Result Comment: MALINA RED INR: 2.0 - 3.0 CONDITIONS NOT LISTED BELOW 2.5 - 3.5 FOR PROSTHETIC HEART VALVE REPLACEMENT 2.5 - 3.5 RECURRENT THROMBOSIS Performed By: #### P T ####[facility] [address]mdw[address] [place], [place] [address]Dr. Farhat Leal PT Coag (PPP) [Time] 15.6 s Critically high 9.0-11.6 [facility] Comment on above: Performed By: #### P T ####[facility] Xlsnzvslfl665[address] [place], [place] [address]Dr. Farhat Leal SED RATE WESTERGRENon 2021 SED RATE 76 mm/hr Critically high <=20 [facility] Comment on above: Performed By: #### S EDR ####[facility] Wevtpwwiqs524[address] [place], [place] [address]Dr. Farhat Leal BNPon 11-24-2021 Natriuretic peptide B (Bld) [Mass/Vol] 92953.0 pg/mL Critically high <=1,800.0 [facility] Comment on above: Performed By: #### B MOVIE EXTRA, CMP, CRP ####[facility] Mpfylupqmp216[address] [place], [place] [address]Dr. Farhat Leal CBC AUTO DIFFon 11-24-2021 BASO # 0.0 103/ul Normal 0.0-0.1 [facility] Comment on above: Performed By: #### C BC ####[facility] Gfmrhdlyfa94[address] [place], [place] [address]Dr. Farhat Leal Basophils/100 WBC (Bld) 0.3 % Normal 0.2-2.0 [facility] Comment on above: Performed By: #### C BC ####[facility] Wntxseskgl626[address] [place], [place] [address]Dr. Farhat Leal EO # 0.2 103/ul Normal 0.0-0.7 [facility] Comment on above: Performed By: #### C BC ####[facility] Mywwounvdo0925[address] [place], [place] [address]Dr. Farhat Leal Eosinophils/100 WBC (Bld) 1.2 % Normal 0.9-7.0 [facility] Comment on above: Performed By: #### C BC ####[facility] Daugtnqaer710[address] [place], [place] [address]Dr. Farhat Leal Erythrocyte distribution width (RBC) [Ratio] 13.5 % Normal 11.0-15.0 [facility] Comment on above: Performed By: #### C BC ####[facility] [address]sv[address] [place] [address]Dr. Farhat Leal Hematocrit (Bld) [Volume fraction] 31.1 % Critically low 42.0-54.0 [facility] Comment on above: Performed By: #### C BC ####[facility] Wmkiqvbsjh[address] [place] [address]Dr. Farhat Leal Hemoglobin (Bld) [Mass/Vol] 10.0 g/dL Critically low 14.0-18.0 [facility] Comment on above: Performed By: #### C BC ####[facility] Kofxotamle[address] [place] [address]Dr. Farhat Leal IG # 0.13 10e3/ul Critically high 0.00-0.03 [facility] Comment on above: Performed By: #### C BC ####[facility] Oxykptnzpf628[address] [place], [place] [address]DrSkylar Leal IG % 1.0 % Critically high 0.0-0.5 [facility] Comment on above: Performed By: #### C BC ####[facility] Lkbjyjfkbp[address] [place], [place] [address]DrSkylar Farhat Elvis LYMPH # 0.7 103/ul Critically low 1.2-3.8 [facility] Comment on above: Performed By: #### C BC ####[facility] Rzqafgffkq1854 [place] [address]DrSkylar Madelynlorri Leal Lymphocytes/100 WBC (Bld) 4.9 % Critically low 20.5-60.0 [facility] Comment on above: Performed By: #### C BC ####[facility] Msrtiritml5[address] [place] [address]DrSkylar Madelynlorri Leal MANUAL DIFF REQ NO Normal [facility] Comment on above: Performed By: #### C BC ####[facility] Ictedhuarx294[address] [place], [place] [address]DrSkylar Madelynlorri Leal MCH (RBC) [Entitic mass] 29.6 pg Normal 25.9-34.0 [facility] Comment on above: Performed By: #### C BC ####[facility] [address]pt[address]awfcdc[address] [place] [phone]. Farhat Leal MCHC (RBC) [Mass/Vol] 32.2 g/dL Normal 29.9-35.2 [facility] Comment on above: Performed By: #### C BC ####[facility] Vamwdagumq05[address] [place] [phone] Farhat Elvis MCV (RBC) [Entitic vol] 92.0 fL Normal 80.0-94.0 [facility] Comment on above: Performed By: #### C BC ####[facility] Sxebutzdxp82[address] [place] [phone] Leal MONO # 1.3 103/ul Critically high 0.3-0.8 [facility] Comment on above: Performed By: #### C BC ####[facility] Sptyjcvlih6[address] [place] [address]Dr. Farhat Leal Monocytes/100 WBC (Bld) 9.6 % Normal 1.7-12.0 [facility] Comment on above: Performed By: #### C BC ####[facility] Gnhzsjhysv9[address] [place], [place] [id number] Leal NEUT # 11.2 103/ul Critically high 1.4-6.5 [facility] Comment on above: Performed By: #### C BC ####[facility] Rfknvtoles5206 [place] [phone] Leal Neutrophils/100 WBC (Bld) 83.0 % Critically high 43.0-75.0 [facility] Comment on above: Performed By: #### C BC ####[facility] Cmomjxadba6[address] [place], [place] [id number] Leal Platelet mean volume (Bld) [Entitic vol] 9.5 fL Normal 9.5-13.5 [facility] Comment on above: Performed By: #### C BC ####[facility] Opblobzndp65[address] [place] [phone] Leal PLT 395 103/ul Normal 150-450 [facility] Comment on above: Performed By: #### C BC ####[facility] Aotohwnfaa39[address] [place] [phone]. Farhat Leal RBC 3.38 106/ul Critically low 4.70-6.10 [facility] Comment on above: Performed By: #### C BC ####[facility] Pjzvccobdl06[address] [place] [phone]. Farhat Leal WBC 13.4 103/ul Critically high 4.0-11.0 [facility] Comment on above: Performed By: #### C BC ####[facility] Fyfppguwwa46[address] [place] [phone]. Farhat Leal CRPon 11-24-2021 CRP 27.8 mg/dL Critically high <=1.0 [facility] Comment on above: Performed By: #### B MOVIE EXTRA, CMP, CRP ####[facility] Eeuoppptcs[address] [place] [phone]. Farhat Leal CULTURE ANAEROBICon 11-25-19 22 CULTURE ANAEROBIC Culture Observations : NO GROWTH OF ANAEROBES AT 72 HOURS. Normal [facility] Comment on above: Performed By: #### A NACX ####[facility] Rbrdbdzqpy74[address] [place] [phone]. Farhat Leal CULTURE ANAEROBIC Culture Observations : NO GROWTH OF ANAEROBES AT 72 HOURS. Normal [facility] Comment on above: Performed By: #### A NACX ####[facility] Dsqwouxmyx78[address] [place] [phone]. Farhat Leal CULTURE ANAEROBIC Culture Observations : No growth of anaerobes at 72 hours. Normal [facility] Comment on above: Performed By: #### A NACX ####[facility] Lxqcbawmgt8151 [place] [phone]. Farhat Leal CULTURE ANAEROBIC Culture Observations : No growth of anaerobes at 72 hours. Normal [facility] Comment on above: Performed By: #### A NACX ####[facility] Bnoaseoyxp5[address] [place] [phone]. Farhat Leal CULTURE URINEon 11-24-2021 CULTURE URINE Culture Observations : NO GROWTH. Normal [facility] Comment on above: Performed By: #### U RCX ####[facility] Nsejweabgx9101[address] [place], [place] [address]Dr. Farhat Leal ECHOCARDIO M/2D COMPLETEon 1 ECHOCARDIO M/2D COMPLETE Normal [facility] ER URINE PROFILEon Bilirubin Ql (U) Negative Normal NEGATIVE [facility] Comment on above: Performed By: #### E RUR ####[facility] Keqdhyncxq6737[address] [place], [place] [address]Dr. Farhat Leal Clarity (U) CLEAR Normal CLEAR [facility] Comment on above: Performed By: #### E RUR ####[facility] Nrlsztdcbu9[address] [place], [place] [address]Dr. Farhat Leal Color (U) YELLOW Normal YELLOW [facility] Comment on above: Performed By: #### E RUR ####[facility] Ubtfoehjfx9845[address] [place], [place] [address]Dr. Farhat Leal ERUAHD A micrscopic examination will be performed if indicated. Normal [facility] Comment on above: Performed By: #### E RUR ####[facility] Bgzrsnhcgc5775[address] [place], [place] [address]Dr. Farhat Leal Glucose Ql (U) Negative Normal NEGATIVE [facility] Comment on above: Performed By: #### E RUR ####[facility] Ptxwargivw487[address] [place], [place] [address]Dr. Farhat Leal Hemoglobin Ql (U) Negative Normal NEGATIVE [facility] Comment on above: Performed By: #### E RUR ####[facility] Omgjtxuesz717[address] [place], [place] [address]Dr. Farhat Leal Ketones Ql (U) TRACE Abnormal NEGATIVE [facility] Comment on above: Performed By: #### E RUR ####[facility] Cyvyuzmulq1517[address] [place], [place] [address]Dr. Farhat Leal LEUKOCYTES Negative Normal NEGATIVE [facility] Comment on above: Performed By: #### E RUR ####[facility] Chxorseqza175[address] [place], [place] [address]Dr. Farhat Leal Nitrite Ql (U) Negative Normal NEGATIVE [facility] Comment on above: Performed By: #### E RUR ####[facility] Bsenoczoea694[address] [place], [place] [address]Dr. Farhat Leal pH (U) 5.5 [pH] Normal 5-9 [facility] Comment on above: Performed By: #### E RUR ####[facility] Knsxfxpdch649[address] [place], [place] [address]Dr. Farhat Leal SPEC GRAVITY 1.015 Normal 1.005-<=1.[address] [place] [address] Comment on above: Performed By: #### E RUR ####[facility] Jbjnkqwmzm5733[address] [place], [place] [address]Dr. Farhat Leal UA PROTEIN Negative Normal NEGATIVE/ TRACE [facility] Comment on above: Performed By: #### E RUR ####[facility] Acjmcvkdjc8468[address] [place], [place] [address]Dr. Farhat Leal UR MICRO IND NOT INDICATED Normal [facility] Comment on above: Performed By: #### E RUR ####[facility] Nmgbrwblrg527[address] [place], [place] [address]Dr. Farhat Leal Urobilinogen Qn (U) 0.2 {Boyd'U}/dL Normal 0.2 - 1. 0 [facility] Comment on above: Performed By: #### E RUR ####[facility] Guqsnwxtyg250[address] [place], [place] [address]Dr. Farhat Leal GRAM STAINon 11-24-2021 DIPHTHEROIDS Normal [facility] Comment on above: Performed By: #### G STAIN ####[facility] Jbmjgvrrhh6400[address] [place], [place] [address]Dr. Farhat Leal EPITHELIALS Normal [facility] Comment on above: Performed By: #### G STAIN ####[facility] Xhufqvbpbh760[address] [place], [place] [address]Dr. Farhat Leal FUNGAL ELEMENTS Normal [facility] Comment on above: Performed By: #### G STAIN ####[facility] Jtnmazwzwq24[address] [place], [place] [id number]. Farhat Leal GRAM NEG BACILLI Normal [facility] Comment on above: Performed By: #### G STAIN ####[facility] Ggvoxbmrpw7601[address] [place], [place] [address]Dr. Farhat Leal GRAM NEG DIPPLOCOCCI Normal [facility] Comment on above: Performed By: #### G STAIN ####[facility] Madavwfpax816[address] [place], [place] [address]Dr. Farhat Leal GRAM POS BACILLI Normal [facility] Comment on above: Performed By: #### G STAIN ####[facility] Nivvmovtfi8[address] [place], [place] [address]Dr. Farhat Leal GRAM POSITIVE COCCI FEW Normal [facility] Comment on above: Performed By: #### G STAIN ####[facility] Sfyimanfvj0418[address] [place], [place] [address]Dr. Farhat Leal GRAM STAIN SOURCE RT ACHILLES TENDON Normal [facility] Comment on above: Performed By: #### G STAIN ####[facility] Gjpwcuohei5449[address] [place], [place] [address]Dr. Farhat Leal GS_DIPTH Normal [facility] Comment on above: Performed By: #### G STAIN ####[facility] Ctdvbnnqvi405[address] [place], [place] [address]Dr. Farhat Leal WBC RARE Normal [facility] Comment on above: Performed By: #### G STAIN ####[facility] Baggcgssfc9616[address] [place], [place] [address]Dr. Farhat Leal COMMENTS NO ORGANISMS OBSERVED Normal [facility] Comment on above: Performed By: #### G STAIN ####[facility] Icriikkixt8917[address] [place], [place] [address]Dr. Farhat Leal DIPHTHEROIDS Normal [facility] Comment on above: Performed By: #### G STAIN ####[facility] Yvdwejcrwo1520[address] [place], [place] [address]Dr. Farhat Leal EPITHELIALS Normal [facility] Comment on above: Performed By: #### G STAIN ####[facility] Lctlvulvxs390[address] [place], [place] [address]Dr. Farhat Leal FUNGAL ELEMENTS Normal [facility] Comment on above: Performed By: #### G STAIN ####[facility] Pnzvokjkio6[address] [place] [address]Dr. Farhat Leal GRAM NEG BACILLI Normal [facility] Comment on above: Performed By: #### G STAIN ####[facility] Xyjdluhekh9[address] [place] [address]Dr. Farhat Leal GRAM NEG DIPPLOCOCCI Normal [facility] Comment on above: Performed By: #### G STAIN ####[facility] Amwqzpsiiz5131 [place] [address]Dr. Farhat Leal GRAM POS BACILLI Normal [facility] Comment on above: Performed By: #### G STAIN ####[facility] Xtbnvbnkzr135[address] [place], [place] [address]Dr. Farhat Leal GRAM POSITIVE COCCI Normal [facility] Comment on above: Performed By: #### G STAIN ####[facility] Ocmovqukrx755[address] [place], [place] [address]Dr. Farhat Leal GRAM STAIN SOURCE RT CALCANEOUS Normal [facility] Comment on above: Performed By: #### G STAIN ####[facility] Wzzfcrkhpu58[address] [place] [address]Dr. Farhat Leal GS_DIPTH Normal [facility] Comment on above: Performed By: #### G STAIN ####[facility] Xmlwvepusj6842 [place] [address]Dr. Farhat Leal WBC RARE Normal [facility] Comment on above: Performed By: #### G STAIN ####[facility] Odppvvetbx0172 [place] [address]Dr. Farhat Leal DIPHTHEROIDS Normal [facility] Comment on above: Performed By: #### G STAIN ####[facility] Znrojfblff33[address] [place], [place] [address]Dr. Farhat Leal EPITHELIALS Normal [facility] Comment on above: Performed By: #### G STAIN ####[facility] Qcfqsdboya2595 [place] [address]Dr. Farhat Leal FUNGAL ELEMENTS Normal [facility] Comment on above: Performed By: #### G STAIN ####[facility] Pynyqabbdy79[address] [place] [phone]. Farhat Leal GRAM NEG BACILLI FEW Normal [facility] Comment on above: Performed By: #### G STAIN ####[facility] Hzexpdnttv9543 [place] [phone]. Farhat Leal GRAM NEG DIPPLOCOCCI Normal [facility] Comment on above: Performed By: #### G STAIN ####[facility] Yfnhzlengu4910 [place] [address]Dr. Farhat Leal GRAM POS BACILLI Normal [facility] Comment on above: Performed By: #### G STAIN ####[facility] Qvyqepangc9619 [place] [address]Dr. Farhat Leal GRAM POSITIVE COCCI FEW Normal [facility] Comment on above: Performed By: #### G STAIN ####[facility] Pwpunhxptm8140 [place] [address]Dr. Farhat Leal GRAM STAIN SOURCE #2 Rt foot abscess Normal [facility] Comment on above: Performed By: #### G STAIN ####[facility] Mkolrrcmmh0988 [place] [address]Dr. Farhat Leal GS_DIPTH Normal [facility] Comment on above: Performed By: #### G STAIN ####[facility] Egsehzpvpz9957 [place] [address]Dr. Farhat Leal WBC RARE Normal [facility] Comment on above: Performed By: #### G STAIN ####[facility] Wcihseciye4700 [place] [address]Dr. Farhat Leal DIPHTHEROIDS Normal [facility] Comment on above: Performed By: #### G STAIN ####[facility] Yycekdpdqv9712 [place] [address]Dr. Farhat Leal EPITHELIALS Normal [facility] Comment on above: Performed By: #### G STAIN ####[facility] Htoivpynnr7117 [place] [address]Dr. Farhat Leal FUNGAL ELEMENTS Normal [facility] Comment on above: Performed By: #### G STAIN ####[facility] Tecsvdqtji47[address] [place] [phone]. Farhat Leal GRAM NEG BACILLI FEW Normal [facility] Comment on above: Performed By: #### G STAIN ####[facility] Gwrenkhtll4860 [place] [address]Dr. Farhat Leal GRAM NEG DIPPLOCOCCI Normal [facility] Comment on above: Performed By: #### G STAIN ####[facility] Ycfjwytdzy0326 [place] [address]Dr. Farhat Leal GRAM POS BACILLI Normal [facility] Comment on above: Performed By: #### G STAIN ####[facility] Itvlpxooom0080[address] [place], [place] [address]Dr. Farhat Leal GRAM POSITIVE COCCI FEW Normal [facility] Comment on above: Performed By: #### G STAIN ####[facility] Bcqdhjdyvn8112[address] [place], [place] [address]Dr. Farhat Leal GRAM STAIN SOURCE #1 Rt foot abscess Normal [facility] Comment on above: Performed By: #### G STAIN ####[facility] Wvfvozmwgg8459[address] [place], [place] [address]Dr. Farhat Leal GS_DIPTH Normal [facility] Comment on above: Performed By: #### G STAIN ####[facility] Qquyvpxefh1549[address] [place], [place] [address]Dr. Farhat Leal WBC NONE SEEN Normal [facility] Comment on above: Performed By: #### G STAIN ####[facility] Afoyterbov254[address] [place], [place] [address]Dr. Farhat Leal POINT OF CARE GLUCOSEon 10- 0 Glucose [Mass/Vol] 331 mg/dL Critically high 74-106 [facility] Comment on above: Performed By: #### P OCGLUC ####[facility] Dzeyqknvjx13[address] [place], [place] [address]Dr. Farhat Leal Glucose [Mass/Vol] 236 mg/dL Critically high 74-106 [facility] Comment on above: Performed By: #### P OCGLUC ####[facility] Ursuzwepns[address] [place], [place] [address]Dr. Farhat Leal PROF 14(COMP METB)on 022 Albumin [Mass/Vol] 1.6 g/dL Critically low 3.4-5.0 [facility] Comment on above: Performed By: #### B MOVIE EXTRA, CMP, CRP ####[facility] Jqxmcmboyh2157 [place] [address]Dr. Farhat Leal Albumin/Globulin [Mass ratio] 0.4 {ratio} Normal [facility] Comment on above: Performed By: #### B MOVIE EXTRA, CMP, CRP ####[facility] Oegtpopran7[address] [place] [address]Dr. Farhat Leal ALP [Catalytic activity/Vol] 94 U/L Normal 46-116 [facility] Comment on above: Performed By: #### B MOVIE EXTRA, CMP, CRP ####[facility] Dshrbdpfnc328[address] [place], [place] [address]Dr. Farhat Leal ALT [Catalytic activity/Vol] 49 U/L Normal 16-63 [facility] Comment on above: Performed By: #### B MOVIE EXTRA, CMP, CRP ####[facility] Emjxadyluf78[address] [place] [address]Dr. Farhat Leal Anion gap [Moles/Vol] 12.5 mmol/L Normal [facility] Comment on above: Performed By: #### B MOVIE EXTRA, CMP, CRP ####[facility] Xrfqwigdrx595[address] [place], [place] [address]Dr. Farhat Leal AST [Catalytic activity/Vol] 102 U/L Critically high 15-37 [facility] Comment on above: Performed By: #### B MOVIE EXTRA, CMP, CRP ####[facility] Onvuqeetrf6[address] [place] [address]Dr. Farhat Leal Bilirubin [Mass/Vol] 0.8 mg/dL Normal 0.2-1.0 [facility] Comment on above: Performed By: #### B MOVIE EXTRA, CMP, CRP ####[facility] Vofixvuixm005[address] [place], [place] [address]Dr. Farhat Leal Calcium [Mass/Vol] 8.4 mg/dL Critically low 8.5-10.1 [facility] Comment on above: Performed By: #### B MOVIE EXTRA, CMP, CRP ####[facility] Ptzplhywfz3[address] [place] [address]Dr. Farhat Leal Chloride [Moles/Vol] 96 mmol/L Critically low 98-107 [facility] Comment on above: Performed By: #### B MOVIE EXTRA, CMP, CRP ####[facility] Mnuuxjxyjs8[address] [place] [address]Dr. Farhat Leal CO2 [Moles/Vol] 24.8 mmol/L Normal 21.0-32.0 [facility] Comment on above: Performed By: #### B MOVIE EXTRA, CMP, CRP ####[facility] Btsysixqjf13[address] [place] [address]Dr. Madelynlorri Elvis Creatinine [Mass/Vol] 1.36 mg/dL Critically high 0.70-1.30 [facility] Comment on above: Performed By: #### B MOVIE EXTRA, CMP, CRP ####[facility] Vdaubjmwbb509[address] [place], [place] [address]Dr. Farhat Elvis EGFR-AF MONTENEGRIN >60 Normal >=60 [facility] Comment on above: Performed By: #### B MOVIE EXTRA, CMP, CRP ####[facility] Vnubzgdpqf267[address] [place], [place] [address]Dr. Farhat Elvis EGFR-NON AF MONTENEGRIN 51 mL/min/1.73m2 Critically low >=60 [facility] Comment on above: Performed By: #### B MOVIE EXTRA, CMP, CRP ####[facility] Inqsjfgies3200[address] [place], [place] [address]Dr. Madelynlorri Elvis Globulin (S) [Mass/Vol] 4.1 g/dL Normal [facility] Comment on above: Performed By: #### B MOVIE EXTRA, CMP, CRP ####[facility] Oojizxofpp3[address] [place] [address]Dr. Farhat Leal Glucose [Mass/Vol] 204 mg/dL Critically high 74-106 [facility] Comment on above: Performed By: #### B MOVIE EXTRA, CMP, CRP ####[facility] Aphjywjepc400[address] [place], [place] [address]Dr. Farhat Leal Potassium [Moles/Vol] 4.3 mmol/L Normal 3.5-5.1 [facility] Comment on above: Performed By: #### B MOVIE EXTRA, CMP, CRP ####[facility] Frgicyeihs84[address] [place] [address]Dr. Farhat Leal Protein [Mass/Vol] 5.7 g/dL Critically low 6.4-8.2 [facility] Comment on above: Performed By: #### B MOVIE EXTRA, CMP, CRP ####[facility] Vdanleamrt15[address] [place], [place] [address]Dr. Farhat Leal Sodium [Moles/Vol] 129 mmol/L Critically low 136-145 [facility] Comment on above: Performed By: #### B MOVIE EXTRA, CMP, CRP ####[facility] Aijhptnosb529[address] [place], [place] [address]Dr. Farhat Leal Urea nitrogen [Mass/Vol] 41.0 mg/dL Critically high 7.0-18.0 [facility] Comment on above: Performed By: #### B MOVIE EXTRA, CMP, CRP ####[facility] Xkwaojfufe[address] [place], [place] [address]Dr. Farhat Leal Urea nitrogen/Creatinine [Mass ratio] 30.1 mg/mg Normal [facility] Comment on above: Performed By: #### B MOVIE EXTRA, CMP, CRP ####[facility] Gbobkjiouo[address] [place], [place] [address]Dr. Farhat Leal PROTIMEon 11-24-2021 INR Coag (PPP) [Relative time] 2.20 {INR} Normal [facility] Comment on above: Performed By: #### P T ####[facility] Louhxlycae[address] [place], [place] [address]Dr. Farhat Leal INR GUIDELINES SEE BELOW Normal [facility] Comment on above: Result Comment: MALINA RED INR: 2.0 - 3.0 CONDITIONS NOT LISTED BELOW 2.5 - 3.5 FOR PROSTHETIC HEART VALVE REPLACEMENT 2.5 - 3.5 RECURRENT THROMBOSIS Performed By: #### P T ####[facility] Kksbjcpoio[address] [place], [place] [address]Dr. Farhat Leal PT Coag (PPP) [Time] 22.6 s Critically high 9.0-11.6 [facility] Comment on above: Performed By: #### P T ####[facility] Kwzrzekwtt3922[address] [place], [place] [address]Dr. Farhat Leal [facility] 80 mm/hr Critically high <=20 The [facility] Comment on above: Performed By: #### S EDR ####[facility] Mwrtejmkvk330[address] [place], [place] [address]Dr. Farhat Leal BLOOD CULTURE ID PANELon A. baumannii Not detected Normal NOT DETECTED [facility] Comment on above: Performed By: #### B CID2 ####[facility] Wypllzqinu[address] [place], [place] [address]Dr. Farhat Leal Bacteriodes fragilis Not detected Normal NOT DETECTED [facility] Comment on above: Performed By: #### B CID2 ####[facility] Knvcqucbrd646[address] [place], [place] [address]Dr. Farhat Leal BCID CONTROLS PASSED Normal [facility] Comment on above: Performed By: #### B CID2 ####[facility] Lpsscbhclt0216[address] [place], [place] [address]Dr. Farhat Leal BCIDBTHD BLOOD CULTURE BOTTLE INFORMATION Normal [facility] Comment on above: Performed By: #### B CID2 ####[facility] Pnstjxozrd12[address] [place], [place] [address]Dr. Farhat Leal BCIDHD1 ANTIMICROBIAL RESISTANCE GENES Normal [facility] Comment on above: Performed By: #### B CID2 ####[facility] Donrywwpip86[address] [place], [place] [address]Dr. Farhat Leal BCIDHD2 SEE BELOW Normal [facility] Comment on above: Result Comment: Note : Antimicrobial resitance can occur via multiple mechanisms. A Not Detected result for the [employer] antomicrobial resistance gene assays does not indicate antimicrobial susceptibility. Subculturing is required for species identification and susceptibility testing of isolates. Performed By: #### B CID2 ####[facility] Uwqwnubqwh[address] [place], [place] [address]Dr. Farhat Leal BCIDHD3 Positive Normal [facility] Comment on above: Performed By: #### B CID2 ####[facility] [address] [place] [phone]. Farhat Leal BCIDHD4 Negative Normal [facility] Comment on above: Performed By: #### B CID2 ####[facility] [address]fylr[address] [place] [phone]. Farhat Leal BCIDHD5 YEAST Normal [facility] Comment on above: Performed By: #### B CID2 ####[facility] [address] [place] [address]Dr. Farhat Leal Bottle Set: Set 1 Normal [facility] Comment on above: Performed By: #### B CID2 ####[facility] Qeojuzkabg[address] [place] [address]Dr. Farhat Leal Bottle: Aerobic Normal [facility] Comment on above: Performed By: #### B CID2 ####[facility] Mahuquduij[address] [place], [place] [address]Dr. Yilorri Leal C. neoformans/gattii Not detected Normal NOT DETECTED [facility] Comment on above: Performed By: #### B CID2 ####[facility] Mrrdquvwzv405[address] [place], [place] [address]Dr. Yilorri [facility] Disha albicans Not detected Normal NOT DETECTED [facility] Comment on above: Performed By: #### B CID2 ####[facility] Y[address]ysogdnqr[address] [place] [address]Dr. Yilorri Leal Disha auris Not detected Normal NOT DETECTED The [facility] Comment on above: Performed By: #### B CID2 ####[facility] Nt[address]qmxzu[address] [place] [address]Dr. Yilorri Leal Disha glabrata Not detected Normal NOT DETECTED [facility] Comment on above: Performed By: #### B CID2 ####[facility] Fpcpxhtvjb[address] [place] [phone]. Yilorri Leal Disha Krusei Not detected Normal NOT DETECTED [facility] Comment on above: Performed By: #### B CID2 ####[facility] Egvnvczeku[address] [place] [phone]. Farhat Leal Disha Parapsilosis Not detected Normal NOT DETECTED [facility] Comment on above: Performed By: #### B CID2 ####[facility] Rqqiumpfct[address] [place], [place] [address]Dr. Farhat Leal Disha Tropicalis Not detected Normal NOT DETECTED [facility] Comment on above: Performed By: #### B CID2 ####[facility] Zyuberjaic[address] [place], [place] [address]Dr. Madelynlorri Leal CTX-M Resistant Gene Not Applicable Normal NOT DETECTE D [facility] Comment on above: Performed By: #### B CID2 ####[facility] Cedjmxgdvs44[address] [place], [place] [address]Dr. Farhat Leal E. Cloacae complex Not detected Normal NOT DETECTED [facility] Comment on above: Performed By: #### B CID2 ####[facility] Jlognsyucd213[address] [place], [place] [address]Dr. Farhat Leal E. faecalis Not detected Normal NOT DETECTED The [facility] Comment on above: Performed By: #### B CID2 ####[facility] Cixlcokzak[address] [place], [place] [address]Dr. Farhat Leal E. faecium Not detected Normal NOT DETECTED [facility] Comment on above: Performed By: #### B CID2 ####[facility] Tkvxnyyksg246[address] [place], [place] [address]Dr. Madelynlorri Leal Enterobacteriaceae Not detected Normal NOT DETECTED [facility] Comment on above: Performed By: #### B CID2 ####[facility] Oubhafkphq75[address] [place], [place] [address]Dr. Madelynlorri Leal Escherichia coli Not detected Normal NOT DETECTED [facility] Comment on above: Performed By: #### B CID2 ####[facility] Smaeiosaqb318[address] [place], [place] [address]Dr. Farhta Leal H. influenzae Not detected Normal NOT DETECTED [facility] Comment on above: Performed By: #### B CID2 ####[facility] Ieobzklwwb215[address] [place], [place] [address]Dr. Farhat Leal IMP Resistant Gene Not Applicable Normal NOT DETECTED [facility] Comment on above: Performed By: #### B CID2 ####[facility] Wadrikdqws4159[address] [place], [place] [address]Dr. Farhat Leal K. oxytoca Not detected Normal NOT DETECTED [facility] Comment on above: Performed By: #### B CID2 ####[facility] [address]xdjsejao[address] [place] [address]Dr. Farhat Leal K. pneumoniae Not detected Normal NOT DETECTED [facility] Comment on above: Performed By: #### B CID2 ####[facility] Chygyegyib[address] [place], [place] [address]Dr. Farhat Leal Klebsiella aerogenes Not detected Normal NOT DETECTED [facility] Comment on above: Performed By: #### B CID2 ####[facility] Xupgqovcze2911[address] [place], [place] [address]Dr. Farhat Leal KPC Resistant Gene Not Applicable Normal NOT DETECTED [facility] Comment on above: Performed By: #### B CID2 ####[facility] Qydeumddee0830[address] [place], [place] [address]Dr. Farhat Leal List. monocytogenes Not detected Normal NOT DETECTED [facility] Comment on above: Performed By: #### B CID2 ####[facility] Kqnkrrqlzd994[address] [place], [place] [address]Dr. Farhat Leal Mcr-1 Resistant Gene Not Applicable Normal NOT DETECTE D [facility] Comment on above: Performed By: #### B CID2 ####[facility] Cfgsuclhpx518[address] [place], [place] [address]Dr. Farhat Leal mecA/C Not Applicable Normal NOT DETECTED [facility] Comment on above: Performed By: #### B CID2 ####[facility] Qlnckzyali2869[address] [place], [place] [address]Dr. Madelynlan Elvis mecA/C MREJ Detected Abnormal NOT DETECTED [facility] Comment on above: Performed By: #### B CID2 ####[facility] Arhexhcfyz087[address] [place], [place] [address]Dr. Farhat Leal N. meningitidis Not detected Normal NOT DETECTED [facility] Comment on above: Performed By: #### B CID2 ####[facility] Aoavvataut0938[address] [place], [place] [address]Dr. Farhat Leal NDM Resistant Gene Not Applicable Normal NOT DETECTED [facility] Comment on above: Performed By: #### B CID2 ####[facility] Sgwciyuxfw6726[address] [place], [place] [address]Dr. Farhat Leal Oxa-48-like Not Applicable Normal NOT DETECTED The [facility] Comment on above: Performed By: #### B CID2 ####[facility] Mrmmwtoaqb[address] [place], [place] [address]Dr. Farhat Leal Proteus Not detected Normal NOT DETECTED [facility] Comment on above: Performed By: #### B CID2 ####[facility] Bdsswpyjfy5869[address] [place], [place] [address]Dr. Farhat Leal Pseud. aeruginosa Not detected Normal NOT DETECTED [facility] Comment on above: Performed By: #### B CID2 ####[facility] Owksyxnboo3339[address] [place], [place] [address]Dr. Farhat Leal S. maltophilia Not detected Normal NOT DETECTED [facility] Comment on above: Performed By: #### B CID2 ####[facility] Mhqnpsplxj6049[address] [place], [place] [address]Dr. Farhat Leal Salmonella Not detected Normal NOT DETECTED [facility] Comment on above: Performed By: #### B CID2 ####[facility] Duratkdyau2418[address] [place], [place] [address]Dr. Farhat Leal Seratia marcescens Not detected Normal NOT DETECTED [facility] Comment on above: Performed By: #### B CID2 ####[facility] Nuwwrgyhbd735[address] [place], [place] [address]Dr. Farhat Leal Site: Rt Hand Normal [facility] Comment on above: Performed By: #### B CID2 ####[facility] Xfirpasbxh[address] [place], [place] [address]Dr. Farhat Leal Staph. aureus Detected Abnormal NOT DETECTED The [facility] Comment on above: Performed By: #### B CID2 ####[facility] Roolmxrfxl663[address] [place], [place] [address]Dr. Farhat Leal Staph. epidermidis Not detected Normal NOT DETECTED [facility] Comment on above: Performed By: #### B CID2 ####[facility] Qftmymoprw139[address] [place], [place] [address]Dr. Farhat Leal Staph. lugdunensis Not detected Normal NOT DETECTED [facility] Comment on above: Performed By: #### B CID2 ####[facility] Ejufcxenbu73[address] [place], [place] [address]Dr. Farhat Leal Staphylococcus Detected Abnormal NOT DETECTED [facility] Comment on above: Performed By: #### B CID2 ####[facility] Lgfgacsakq734[address] [place], [place] [address]Dr. Farhat Leal Strep. agalactiae Not detected Normal NOT DETECTED [facility] Comment on above: Performed By: #### B CID2 ####[facility] Hfxxnxqdkl46[address] [place], [place] [address]Dr. Madelynlorri Elvis Strep. pneumoniae Not detected Normal NOT DETECTED [facility] Comment on above: Performed By: #### B CID2 ####[facility] Eygkivyhsz[address] [place], [place] [address]Dr. Farhat Elvis Strep. pyogenes Not detected Normal NOT DETECTED [facility] Comment on above: Performed By: #### B CID2 ####[facility] Isyoaihdqi[address] [place], [place] [address]Dr. Farhat Leal Streptococcus Not detected Normal NOT DETECTED [facility] Comment on above: Performed By: #### B CID2 ####[facility] Yoeylchezp[address] [place], [place] [address]Dr. Farhat Leal Teodoro/B Resist. Gene Not Applicable Normal NOT DETECTED [facility] Comment on above: Performed By: #### B CID2 ####[facility] Vuwajoxgoe[address] [place], [place] [address]Dr. Farhat Leal VIM Resistant Gene Not Applicable Normal NOT DETECTED [facility] Comment on above: Performed By: #### B CID2 ####[facility] [address]th[address]zi[address] [place] [address]Dr. Farhat Leal BNPon 11-23-2021 Natriuretic peptide B (Bld) [Mass/Vol] 19452.0 pg/mL Critically high <=1,800.0 [facility] Comment on above: Performed By: #### C MP, CMADM, BNP ####[facility] [address]vud[address]lgxw[address] [place] [address]Dr. Farhat Leal CARDIAC AMANDA ADMITon 022 CK [Catalytic activity/Vol] 41 U/L Normal 39-308 [facility] Comment on above: Performed By: #### C MP, CMADM, BNP ####[facility] H[address]wp[address]lesu[address] [place] [address]Dr. Farhat Leal CK.MB [Mass/Vol] 0.98 ng/mL Normal <=3.60 [facility] Comment on above: Performed By: #### C MP, CMADM, BNP ####[facility] Y[address]xcv[address]zs[address] [place] [address]Dr. Farhat Leal HSTROP 30.1 pg/mL Normal 4.0-76.1 [facility] Comment on above: Result Comment: CUT- OFF POINTS HAVE BEEN ESTABLISHED BASED ON THE FOURTH UNIVERSAL DEFINITIONS OF MYOCARDIALINFARCTION. THE UPPER REFERENCE LIMIT (URL) OF TROPONIN, DEFINED THE 99TH PERCENTILE OFcTnI DISTRIBUTION IN A REFERENCE POPULATION, HAS BEEN CONFIRMED THE DECISION THRESHOLDFOR [place] DIAGNOSIS. Performed By: #### C MP, CMADM, BNP ####[facility] Afzi[address]feuu[address] [place] [address]Dr. Farhat Leal VALERIA 160 ng/mL Critically high 16-96 The [facility] Comment on above: Performed By: #### C MP, CMADM, BNP ####[facility] Ybxhgldope[address] [place] [address]Dr. Farhat Leal CBC AUTO DIFFon 11-23-2021 BASO # 0.0 103/ul Normal 0.0-0.1 [facility] Comment on above: Performed By: #### C BC ####[facility] [address]oghrgtjpq[address] [place] [address]Dr. Farhat Leal Basophils/100 WBC (Bld) 0.2 % Normal 0.2-2.0 [facility] Comment on above: Performed By: #### C BC ####[facility] Qgcbdjlnbx[address] [place] [address]Dr. Farhat Leal EO # 0.0 103/ul Normal 0.0-0.7 [facility] Comment on above: Performed By: #### C BC ####[facility] Wrkhonqvjo[address] [place] [address]Dr. Farhat Leal Eosinophils/100 WBC (Bld) 0.1 % Critically low 0.9-7.0 [facility] Comment on above: Performed By: #### C BC ####[facility] Owbaiombzh[address] [place], [place] [address]Dr. Farhat Leal Erythrocyte distribution width (RBC) [Ratio] 13.4 % Normal 11.0-15.0 [facility] Comment on above: Performed By: #### C BC ####[facility] Mkdndyaoyc[address] [place], [place] [address]Dr. Farhat Leal Hematocrit (Bld) [Volume fraction] 31.6 % Critically low 42.0-54.0 [facility] Comment on above: Performed By: #### C BC ####[facility] Tjsdmnbfjb[address] [place], [place] [address]Dr. Farhat Leal Hemoglobin (Bld) [Mass/Vol] 10.4 g/dL Critically low 14.0-18.0 [facility] Comment on above: Performed By: #### C BC ####[facility] Rzwqysspgm[address] [place], [place] [address]Dr. Farhat Leal IG # 0.11 10e3/ul Critically high 0.00-0.03 [facility] Comment on above: Performed By: #### C BC ####[facility] [address]xf[address] [place] [address]Dr. Farhat Leal IG % 0.7 % Critically high 0.0-0.5 The [facility] Comment on above: Performed By: #### C BC ####[facility] [address]ffztlxk[address] [place] [phone]. Farhat Elvis LYMPH # 0.5 103/ul Critically low 1.2-3.8 [facility] Comment on above: Performed By: #### C BC ####[facility] [address]xy[address]ux[address] [place] [phone]. Farhat Leal Lymphocytes/100 WBC (Bld) 2.8 % Critically low 20.5-60.0 [facility] Comment on above: Performed By: #### C BC ####[facility] [address]fsjfug[address] [place] [phone]. Madelynlorri Leal MANUAL DIFF REQ NO Normal The [facility] Comment on above: Performed By: #### C BC ####[facility] Bwhualkjoe[address] [place] [phone]. Farhat Elvis MCH (RBC) [Entitic mass] 29.8 pg Normal 25.9-34.0 [facility] Comment on above: Performed By: #### C BC ####[facility] Edytymmhti[address] [place] [phone]. Farhat Elvis MCHC (RBC) [Mass/Vol] 32.9 g/dL Normal 29.9-35.2 [facility] Comment on above: Performed By: #### C BC ####[facility] [address]ix[address]ydvwp[address] [place] [phone]. Farhat Elvis MCV (RBC) [Entitic vol] 90.5 fL Normal 80.0-94.0 [facility] Comment on above: Performed By: #### C BC ####[facility] Nifuudluha[address] [place] [phone]. Farhat Elvis MONO # 1.3 103/ul Critically high 0.3-0.8 The [facility] Comment on above: Performed By: #### C BC ####[facility] [address]ajigxctfm[address] [place] [phone]. Madelynlorri Leal Monocytes/100 WBC (Bld) 8.3 % Normal 1.7-12.0 [facility] Comment on above: Performed By: #### C BC ####[facility] W[address]oc[address]adqw[address] [place] [phone]. Farhat Leal NEUT # 13.9 103/ul Critically high 1.4-6.5 [facility] Comment on above: Performed By: #### C BC ####[facility] Bxcfbrzylp4[address] [place] [phone]. Farhat Leal Neutrophils/100 WBC (Bld) 87.9 % Critically high 43.0-75.0 [facility] Comment on above: Performed By: #### C BC ####[facility] [address]koizqqtxc36[address] [place] [phone]. Farhat Leal Platelet mean volume (Bld) [Entitic vol] 9.3 fL Critically low 9.5-13.5 [facility] Comment on above: Performed By: #### C BC ####[facility] [address]xerzmbkli[address] [place] [phone]. Farhat Leal PLT 390 103/ul Normal 150-450 [facility] Comment on above: Performed By: #### C BC ####[facility] B[address]wvmhuskp74[address] [place] [phone]. Farhat Leal RBC 3.49 106/ul Critically low 4.70-6.10 The [facility] Comment on above: Performed By: #### C BC ####[facility] Edkhjezmpu[address] [place] [phone]. Farhat Leal WBC 15.9 103/ul Critically high 4.0-11.0 [facility] Comment on above: Performed By: #### C BC ####[facility] Ffaaykopim[address] [place] [phone]. Farhat Leal CT HEAD WO CONon 11-23-2021 CT HEAD WO CON Normal [facility] CULTURE BLOODon 11-23-2021 Microscopic examination of blood, culture Culture Observations: NO GROWTH AT 5 DAYS. Normal [facility] Comment on above: Performed By: #### B LDCX2 ####[facility] O[address]tvxpqdxp[address] [place] [phone]. Farhat Leal Covid-19 PCR (CVDTB)on SARS-CoV-2 (COVID-19) RNA JOSH+probe Ql (Unsp spec) Not detected Normal NOT DETECTED [facility] Comment on above: Result Comment: When [...] for this test is supported by the [employer] Professor of Health and Human Service's declaration that [...] be used). Performed By: #### C VDTBH ####[facility] Ksjqzsxqte[address] [place], [place] [address]Dr. Farhat Leal LACTATE/LACTIC ACIDon 2021 Lactate [Moles/Vol] 1.3 mmol/L Normal 0.4-1.9 [facility] Comment on above: Performed By: #### L ACT ####[facility] Pwwemwkvdv[address] [place], [place] [address]DrSkylar Leal Lactate [Moles/Vol] 1.3 mmol/L Normal 0.4-1.9 [facility] Comment on above: Performed By: #### L ACT ####[facility] Bzcjrptyys[address] [place], [place] [address]Dr. Farhat Leal POINT OF CARE GLUCOSEon Glucose [Mass/Vol] 252 mg/dL Critically high 74-106 [facility] Comment on above: Performed By: #### P OCGLUC ####[facility] Rggswbwhmv[address] [place], [place] [address]Dr. Farhat Leal PROF 14(COMP METB)on 10-09-2 022 Albumin [Mass/Vol] 1.6 g/dL Critically low 3.4-5.0 Th e [facility] Comment on above: Performed By: #### C MP, CMADM, BNP ####[facility] Zjcuouotgo[address] [place] [address]Dr. Madelynlorri Elvis Albumin/Globulin [Mass ratio] 0.4 {ratio} Normal [facility] Comment on above: Performed By: #### C MP, CMADM, BNP ####[facility] Rrshjknqxo[address] [place] [address]Dr. Farhat Elvis ALP [Catalytic activity/Vol] 98 U/L Normal 46-116 [facility] Comment on above: Performed By: #### C MP CMADM, BNP ####[facility] Svnznfxgtn15[address] [place] [address]Dr. Farhat Leal ALT [Catalytic activity/Vol] 52 U/L Normal 16-63 [facility] Comment on above: Performed By: #### C MP, CMADM, BNP ####[facility] Mydotkxqut[address] [place] [address]Dr. Farhat Leal Anion gap [Moles/Vol] 9.8 mmol/L Normal [facility] Comment on above: Performed By: #### C MP CMADM, BNP ####[facility] Xwujcgveed[address] [place], [place] [address]Dr. Farhat Leal AST [Catalytic activity/Vol] 122 U/L Critically high 15-37 [facility] Comment on above: Performed By: #### C MP, CMADM, BNP ####[facility] Wej[address]ukfzly[address] [place] [address]Dr. Farhat Leal Bilirubin [Mass/Vol] 0.7 mg/dL Normal 0.2-1.0 [facility] Comment on above: Performed By: #### C MP, CMADM, BNP ####[facility] Qbaamzwvcj79[address] [place] [address]Dr. Farhat Leal Calcium [Mass/Vol] 8.6 mg/dL Normal 8.5-10.1 [facility] Comment on above: Performed By: #### C MP, CMADM, BNP ####[facility] Ruxirvggea[address] [place] [address]Dr. Farhat Leal Chloride [Moles/Vol] 95 mmol/L Critically low 98-107 [facility] Comment on above: Performed By: #### C MP, CMADM, BNP ####[facility] Ogylmrzomh[address] [place] [address]Dr. Farhat Leal CO2 [Moles/Vol] 29.6 mmol/L Normal 21.0-32.0 [facility] Comment on above: Performed By: #### C MP, CMADM, BNP ####[facility] S[address]celnxvnr38[address] [place] [address]Dr. Farhat Leal Creatinine [Mass/Vol] 1.49 mg/dL Critically high 0.70-1.30 [facility] Comment on above: Performed By: #### C MP, CMADM, BNP ####[facility] [address] [place], [place] [address]Dr. Farhat Elvis EGFR-AF MONTENEGRIN 55 mL/min/1.73m2 Critically low >=60 [facility] Comment on above: Performed By: #### C MP, CMADM, BNP ####[facility] Ofxoajyjfd0[address] [place], [place] [address]Dr. Farhat Leal EGFR-NON AF MONTENEGRIN 46 mL/min/1.73m2 Critically low >=60 [facility] Comment on above: Performed By: #### C MP, CMADM, BNP ####[facility] Jxifpnwcic8840[address] [place], [place] [address]Dr. Farhat Leal Globulin (S) [Mass/Vol] 4.3 g/dL Normal [facility] Comment on above: Performed By: #### C MP, CMADM, BNP ####[facility] Dmjzwtbjwt729[address] [place], [place] [address]Dr. Farhat Leal Glucose [Mass/Vol] 213 mg/dL Critically high 74-106 [facility] Comment on above: Performed By: #### C MP, CMADM, BNP ####[facility] Dkexffwjco700[address] [place], [place] [address]Dr. Yilorri Leal Potassium [Moles/Vol] 4.4 mmol/L Normal 3.5-5.1 [facility] Comment on above: Performed By: #### C ANTWAN MARROQUIN, BNP ####[facility] [address] [place] [address]Dr. Farhat Leal Protein [Mass/Vol] 5.9 g/dL Critically low 6.4-8.2 [facility] Comment on above: Performed By: #### C ANTWAN MARROQUIN, BNP ####[facility] Cnpvzqimtf55[address] [place], [place] [address]Dr. Farhat Leal Sodium [Moles/Vol] 130 mmol/L Critically low 136-145 [facility] Comment on above: Performed By: #### C ANTWAN MARROQUIN, BNP ####[facility] Kkzdcremag3601[address] [place], [place] [address]Dr. Farhat Leal Urea nitrogen [Mass/Vol] 46.0 mg/dL Critically high 7.0-18.0 [facility] Comment on above: Performed By: #### C ANTWAN MARROQUIN, BNP ####[facility] Dluewldmmw9[address] [place], [place] [address]Dr. Farhat Leal Urea nitrogen/Creatinine [Mass ratio] 30.9 mg/mg Normal [facility] Comment on above: Performed By: #### C ANTWAN MARROQUIN, BNP ####[facility] Gfexskmywk7916[address] [place], [place] [address]Dr. Farhat Leal PROTIMEon 11-23-2021 INR Coag (PPP) [Relative time] 2.55 {INR} Normal [facility] Comment on above: Performed By: #### P TT, PT ####[facility] Rxhkfbsuax964[address] [place], [place] [address]Dr. Farhat Leal INR GUIDELINES SEE BELOW Normal [facility] Comment on above: Result Comment: MALINA RED INR: 2.0 - 3.0 CONDITIONS NOT LISTED BELOW 2.5 - 3.5 FOR PROSTHETIC HEART VALVE REPLACEMENT 2.5 - 3.5 RECURRENT THROMBOSIS Performed By: #### P TT, PT ####[facility] Qzhhfktbqc8[address] [place], [place] [address]Dr. Farhat Leal PT Coag (PPP) [Time] 25.9 s Critically high 9.0-11.6 [facility] Comment on above: Performed By: #### P TT, PT ####[facility] Lhhtpaoqjn297[address] [place], [place] [address]Dr. Farhat Leal PTTon 11-23-2021 aPTT Coag (Bld) [Time] 39.9 s Critically high 22.3-36. 2 [facility] Comment on above: Performed By: #### P TT, PT ####[facility] Tbihxanohg9112[address] [place], [place] [address]Dr. Farhat Leal XR CHEST 1 Von 11-23-2021 XR CHEST 1 V Normal [facility] XR HEEL RT 2Von 11-23-2021 XR HEEL RT 2V Normal [facility] XR FOOT RT MIN 3 VIEWSon XR FOOT RT MIN 3 VIEWS Normal [facility] US ARTERY LEG RTon US ARTERY LEG RT Normal [facility] CBC AUTO DIFFon 09-24-2021 BASO # 0.1 103/ul Normal 0.0-0.1 [facility] Comment on above: Performed By: #### C BC ####[facility] Svzylpkblv289[address] [place], [place] [address]Dr. Farhat Elvis Basophils/100 WBC (Bld) 0.7 % Normal 0.2-2.0 [facility] Comment on above: Performed By: #### C BC ####[facility] Qluxmqnrtj499[address] [place], [place] [address]Dr. Farhat Elvis EO # 0.3 103/ul Normal 0.0-0.7 [facility] Comment on above: Performed By: #### C BC ####[facility] Obdrinomxg296[address] [place], [place] [address]Dr. Farhat Elvis Eosinophils/100 WBC (Bld) 3.9 % Normal 0.9-7.0 [facility] Comment on above: Performed By: #### C BC ####[facility] Bfynurxnqt424[address] [place], [place] [address]Dr. Yilorri Leal Erythrocyte distribution width (RBC) [Ratio] 12.6 % Normal 11.0-15.0 [facility] Comment on above: Performed By: #### C BC ####[facility] [address] [place] [address]Dr. Farhat Leal Hematocrit (Bld) [Volume fraction] 38.9 % Critically low 42.0-54.0 [facility] Comment on above: Performed By: #### C BC ####[facility] Hhlyeopltk5795[address] [place], [place] [address]Dr. Farhat Leal Hemoglobin (Bld) [Mass/Vol] 12.8 g/dL Critically low 14.0-18.0 [facility] Comment on above: Performed By: #### C BC ####[facility] Twydkddshs616[address] [place], [place] [address]Dr. Farhat Leal IG # 0.10 10e3/ul Critically high 0.00-0.03 [facility] Comment on above: Performed By: #### C BC ####[facility] Yqmsohobxw8533[address] [place], [place] [address]Dr. Farhat Leal IG % 1.2 % Critically high 0.0-0.5 [facility] Comment on above: Performed By: #### C BC ####[facility] Mefqexqkry3822[address] [place], [place] [address]Dr. Madelynlorri Elvis LYMPH # 2.1 103/ul Normal 1.2-3.8 [facility] Comment on above: Performed By: #### C BC ####[facility] Jzbnevteef077[address] [place], [place] [address]Dr. Madelynlorri Leal Lymphocytes/100 WBC (Bld) 25.9 % Normal 20.5-60.0 [facility] Comment on above: Performed By: #### C BC ####[facility] Tplylkxjao1189[address] [place], [place] [address]Dr. Farhat Elvis MANUAL DIFF REQ NO Normal [facility] Comment on above: Performed By: #### C BC ####[facility] Dzhxseqtjd600[address] [place], [place] [address]Dr. Farhat Leal MCH (RBC) [Entitic mass] 31.1 pg Normal 25.9-34.0 [facility] Comment on above: Performed By: #### C BC ####[facility] [address] [place] [address]Dr. Farhat Leal MCHC (RBC) [Mass/Vol] 32.9 g/dL Normal 29.9-35.2 [facility] Comment on above: Performed By: #### C BC ####[facility] [address] [place] [address]Dr. Farhat Leal MCV (RBC) [Entitic vol] 94.6 fL Critically high 80.0-94.0 [facility] Comment on above: Performed By: #### C BC ####[facility] Onxbxogumg2934[address] [place], [place] [address]Dr. Farhat Elvis MONO # 1.2 103/ul Critically high 0.3-0.8 [facility] Comment on above: Performed By: #### C BC ####[facility] Grwvsalvvb316[address] [place], [place] [address]Dr. Madelynlorri Leal Monocytes/100 WBC (Bld) 14.1 % Critically high 1.7-12.0 [facility] Comment on above: Performed By: #### C BC ####[facility] Wlrznhixfw7216[address] [place], [place] [address]Dr. Farhat Leal NEUT # 4.4 103/ul Normal 1.4-6.5 [facility] Comment on above: Performed By: #### C BC ####[facility] Dmcjintdna758[address] [place], [place] [address]Dr. Madelynlorri Leal Neutrophils/100 WBC (Bld) 54.2 % Normal 43.0-75.0 [facility] Comment on above: Performed By: #### C BC ####[facility] Bquknbfxrv655[address] [place], [place] [address]Dr. Farhat Leal Platelet mean volume (Bld) [Entitic vol] 9.9 fL Normal 9.5-13.5 [facility] Comment on above: Performed By: #### C BC ####[facility] [address]bp[address] [place] [address]Dr. Farhat Elvis PLT 224 103/ul Normal 150-450 [facility] Comment on above: Performed By: #### C BC ####[facility] Zdvfblbqka3680[address] [place], [place] [address]Dr. Farhat Elvis RBC 4.11 106/ul Critically low 4.70-6.10 [facility] Comment on above: Performed By: #### C BC ####[facility] Wtduqkbuhi4764[address] [place], [place] [address]Dr. Farhat Elvis WBC 8.2 103/ul Normal 4.0-11.0 [facility] Comment on above: Performed By: #### C BC ####[facility] Fhcjzppxlg444[address] [place], [place] [address]Dr. Madelynlorri Leal PROF CHEM 8 (BAS METB)on Anion gap [Moles/Vol] 9.6 mmol/L Normal [facility] Comment on above: Performed By: #### B MP ####[facility] Utfmemnifu654[address] [place], [place] [address]Dr. Farhat Leal Calcium [Mass/Vol] 8.6 mg/dL Normal 8.5-10.1 [facility] Comment on above: Performed By: #### B MP ####[facility] Cgamdijiai1179[address] [place], [place] [address]Dr. Farhat Leal Chloride [Moles/Vol] 94 mmol/L Critically low 98-107 [facility] Comment on above: Performed By: #### B MP ####[facility] Vzsytdmcev460[address] [place], [place] [address]Dr. Farhat Leal CO2 [Moles/Vol] 28.1 mmol/L Normal 21.0-32.0 [facility] Comment on above: Performed By: #### B MP ####[facility] Njxsgncxvy926[address] [place], [place] [address]Dr. Farhat Leal Creatinine [Mass/Vol] 1.91 mg/dL Critically high 0.70-1.30 [facility] Comment on above: Performed By: #### B MP ####[facility] [address]ovj[address] [place] [address]Dr. Madelynlorri Elvis EGFR-AF MONTENEGRIN 42 mL/min/1.73m2 Critically low >=60 [facility] Comment on above: Performed By: #### B MP ####[facility] Rzvyxannqx505[address] [place], [place] [address]Dr. Madelynlorri Leal EGFR-NON AF MONTENEGRIN 34 mL/min/1.73m2 Critically low >=60 [facility] Comment on above: Performed By: #### B MP ####[facility] Rvmljaxqnh629[address] [place], [place] [address]Dr. Farhat Leal Glucose [Mass/Vol] 314 mg/dL Critically high 74-106 [facility] Comment on above: Performed By: #### B MP ####[facility] Xtlrjkndxm[address] [place], [place] [address]Dr. Farhat Leal Potassium [Moles/Vol] 4.7 mmol/L Normal 3.5-5.1 [facility] Comment on above: Performed By: #### B MP ####[facility] Uekqzgqzil637[address] [place], [place] [address]Dr. Farhat Leal Sodium [Moles/Vol] 127 mmol/L Critically low 136-145 [facility] Comment on above: Performed By: #### B MP ####[facility] Mzrtgxmdnv8770[address] [place], [place] [address]Dr. Farhat Leal Urea nitrogen [Mass/Vol] 79.0 mg/dL Critically high 7.0-18.0 [facility] Comment on above: Result Comment: repe ated Performed By: #### B MP ####[facility] Koehihhjck027[address] [place], [place] [address]Dr. Farhat Leal Urea nitrogen/Creatinine [Mass ratio] 41.4 mg/mg Normal [facility] Comment on above: Performed By: #### B MP ####[facility] Ajqznxucjj277[address] [place], [place] [address]Dr. Farhat Leal PTT HEPARIN MONITORon 2021 aPTT Coag (Bld) [Time] 42.7 s Normal 39.5-54.2 [facility] Comment on above: Performed By: #### P TTHEP ####[facility] [address] [place] [address]Dr. Farhat Leal aPTT Coag (Bld) [Time] 56.7 s Critically high 39.5-54. 2 [facility] Comment on above: Performed By: #### P TTHEP ####[facility] Wrwsryehhi185[address] [place], [place] [address]Dr. Farhat Leal CBC AUTO DIFFon 09-23-2021 BASO # 0.1 103/ul Normal 0.0-0.1 [facility] Comment on above: Performed By: #### C BC ####[facility] Zbutnbwdhc658[address] [place], [place] [address]Dr. Farhat Leal Basophils/100 WBC (Bld) 0.6 % Normal 0.2-2.0 [facility] Comment on above: Performed By: #### C BC ####[facility] Itrzsajdim8555[address] [place], [place] [address]Dr. Farhat Leal EO # 0.2 103/ul Normal 0.0-0.7 [facility] Comment on above: Performed By: #### C BC ####[facility] Rardwmphsy696[address] [place], [place] [address]Dr. Farhat Leal Eosinophils/100 WBC (Bld) 2.6 % Normal 0.9-7.0 [facility] Comment on above: Performed By: #### C BC ####[facility] Rqyefcveuo5627[address] [place], [place] [address]Dr. Farhat Leal Erythrocyte distribution width (RBC) [Ratio] 12.4 % Normal 11.0-15.0 [facility] Comment on above: Performed By: #### C BC ####[facility] Ulwipspvxq884[address] [place], [place] [address]Dr. Farhat Leal Hematocrit (Bld) [Volume fraction] 38.4 % Critically low 42.0-54.0 [facility] Comment on above: Performed By: #### C BC ####[facility] Ynfrrdtwva900[address] [place], [place] [address]Dr. Farhat Leal Hemoglobin (Bld) [Mass/Vol] 12.8 g/dL Critically low 14.0-18.0 [facility] Comment on above: Performed By: #### C BC ####[facility] [address] [place] [address]DrSkylar Leal IG # 0.06 10e3/ul Critically high 0.00-0.03 [facility] Comment on above: Performed By: #### C BC ####[facility] Adcfbfotzq380[address] [place] [address]Dr. Farhat Leal IG % 0.8 % Critically high 0.0-0.5 [facility] Comment on above: Performed By: #### C BC ####[facility] Cgiettphop1460[address] [place], [place] [address]DrSkylar Leal LYMPH # 1.5 103/ul Normal 1.2-3.8 [facility] Comment on above: Performed By: #### C BC ####[facility] Kqejhwqxbi085[address] [place], [place] [address]Dr. Farhat Leal Lymphocytes/100 WBC (Bld) 19.7 % Critically low 20.5-60.0 [facility] Comment on above: Performed By: #### C BC ####[facility] Fjjlrhfnyl3722[address] [place], [place] [address]DrSkylar Leal MANUAL DIFF REQ NO Normal [facility] Comment on above: Performed By: #### C BC ####[facility] Gjcnbcjlcs878[address] [place], [place] [address]DrSkylar Leal MCH (RBC) [Entitic mass] 31.6 pg Normal 25.9-34.0 [facility] Comment on above: Performed By: #### C BC ####[facility] Lumigiiqxx7680[address] [place], [place] [address]DrSkylar Leal MCHC (RBC) [Mass/Vol] 33.3 g/dL Normal 29.9-35.2 [facility] Comment on above: Performed By: #### C BC ####[facility] Pdijrieyas0567[address] [place], [place] [address]DrSkylar Leal MCV (RBC) [Entitic vol] 94.8 fL Critically high 80.0-94.0 [facility] Comment on above: Performed By: #### C BC ####[facility] Hvjgvivsix495[address] [place], [place] [address]DrSkylar Farhat Leal MONO # 1.0 103/ul Critically high 0.3-0.8 [facility] Comment on above: Performed By: #### C BC ####[facility] Sllqhzubin350[address] [place], [place] [address]Dr. Farhat Elvis Monocytes/100 WBC (Bld) 13.0 % Critically high 1.7-12.0 [facility] Comment on above: Performed By: #### C BC ####[facility] Btlcsdvjkf037[address] [place], [place] [address]Dr. Farhat Leal NEUT # 4.9 103/ul Normal 1.4-6.5 [facility] Comment on above: Performed By: #### C BC ####[facility] Mlqitempxu398[address] [place], [place] [address]Dr. Farhat Elvis Neutrophils/100 WBC (Bld) 63.3 % Normal 43.0-75.0 [facility] Comment on above: Performed By: #### C BC ####[facility] Tlvknwpvui959[address] [place], [place] [address]Dr. Farhat Elvis Platelet mean volume (Bld) [Entitic vol] 10.7 fL Normal 9.5-13.5 [facility] Comment on above: Performed By: #### C BC ####[facility] Ctwtudwqtt614[address] [place], [place] [address]Dr. Farhat Elvis PLT 205 103/ul Normal 150-450 [facility] Comment on above: Performed By: #### C BC ####[facility] Gdyerrzdxv050[address] [place], [place] [address]Dr. Madelynlorri Elvis RBC 4.05 106/ul Critically low 4.70-6.10 [facility] Comment on above: Performed By: #### C BC ####[facility] Fwnfmpmcox5467[address] [place], [place] [address]Dr. Farhat Leal WBC 7.7 103/ul Normal 4.0-11.0 [facility] Comment on above: Performed By: #### C BC ####[facility] Hrgwmfydpf9922[address] [place], [place] [address]Dr. Farhat Leal PROF CHEM 8 (BAS METB)on Anion gap [Moles/Vol] 15.5 mmol/L Normal [facility] Comment on above: Performed By: #### B MP ####[facility] Vkhsmactcm7734[address] [place], [place] [address]Dr. Farhat Leal Calcium [Mass/Vol] 9.1 mg/dL Normal 8.5-10.1 [facility] Comment on above: Performed By: #### B MP ####[facility] Ysbrbxahfe289[address] [place], [place] [address]Dr. Farhat Leal Chloride [Moles/Vol] 92 mmol/L Critically low 98-107 [facility] Comment on above: Performed By: #### B MP ####[facility] Gmzekpjgns7460[address] [place], [place] [address]Dr. Farhat Leal CO2 [Moles/Vol] 28.5 mmol/L Normal 21.0-32.0 [facility] Comment on above: Performed By: #### B MP ####[facility] Azdhswholj2295[address] [place], [place] [address]Dr. Farhat Leal Creatinine [Mass/Vol] 1.84 mg/dL Critically high 0.70-1.30 [facility] Comment on above: Performed By: #### B MP ####[facility] Nsobedjjce769[address] [place], [place] [address]Dr. Farhat Leal EGFR-AF MONTENEGRIN 44 mL/min/1.73m2 Critically low >=60 [facility] Comment on above: Performed By: #### B MP ####[facility] Lxeehfqpch1100[address] [place], [place] [address]Dr. Farhat Leal EGFR-NON AF MONTENEGRIN 36 mL/min/1.73m2 Critically low >=60 [facility] Comment on above: Performed By: #### B MP ####[facility] Emgnvnbiso8[address] [place], [place] [address]Dr. Madelynlorri Leal Glucose [Mass/Vol] 267 mg/dL Critically high 74-106 [facility] Comment on above: Performed By: #### B MP ####[facility] Jipackfjjr784[address] [place], [place] [address]Dr. Madelynlorri Leal Potassium [Moles/Vol] 5.0 mmol/L Normal 3.5-5.1 [facility] Comment on above: Performed By: #### B MP ####[facility] Umecsgycga601[address] [place], [place] [address]Dr. Farhat Leal Sodium [Moles/Vol] 131 mmol/L Critically low 136-145 [facility] Comment on above: Performed By: #### B MP ####[facility] Ualgeicxfe695[address] [place], [place] [address]Dr. Farhat Leal Urea nitrogen [Mass/Vol] 76.0 mg/dL Critically high 7.0-18.0 [facility] Comment on above: Performed By: #### B MP ####[facility] Eqcgeuoxyr1423[address] [place], [place] [address]Dr. Farhat Leal Urea nitrogen/Creatinine [Mass ratio] 41.3 mg/mg Normal [facility] Comment on above: Performed By: #### B MP ####[facility] Pfokhatjhy636[address] [place], [place] [address]Dr. Farhat Leal PTT HEPARIN MONITORon 2021 aPTT Coag (Bld) [Time] 57.2 s Critically high 39.5-54. 2 [facility] Comment on above: Performed By: #### P TTHEP ####[facility] Awugancsnf7944[address] [place], [place] [address]Dr. Farhat Leal aPTT Coag (Bld) [Time] 74.7 s Critically high 39.5-54. 2 [facility] Comment on above: Result Comment: repe ated Performed By: #### P TTHEP ####[facility] Bwvpkdpzag625[address] [place], [place] [address]Dr. Farhat Leal aPTT Coag (Bld) [Time] 45.5 s Normal 39.5-54.2 [facility] Comment on above: Performed By: #### P TTHEP ####[facility] Zszisxcvzi030[address] [place], [place] [address]DrSkylar Leal CBC AUTO DIFFon 09-22-2021 BASO # 0.1 103/ul Normal 0.0-0.1 [facility] Comment on above: Performed By: #### C BC ####[facility] Gkucdiirft287[address] [place], [place] [address]DrSkylar Leal Basophils/100 WBC (Bld) 0.7 % Normal 0.2-2.0 [facility] Comment on above: Performed By: #### C BC ####[facility] Mojfozgaby465[address] [place], [place] [address]DrSkylar Leal EO # 0.3 103/ul Normal 0.0-0.7 [facility] Comment on above: Performed By: #### C BC ####[facility] Jcontiekpa713[address] [place], [place] [address]DrSkylar Leal Eosinophils/100 WBC (Bld) 3.2 % Normal 0.9-7.0 [facility] Comment on above: Performed By: #### C BC ####[facility] Qiphgpnfqp128[address] [place], [place] [address]DrSkylar Leal Erythrocyte distribution width (RBC) [Ratio] 12.5 % Normal 11.0-15.0 [facility] Comment on above: Performed By: #### C BC ####[facility] Kjpogzedjm0555[address] [place], [place] [address]DrSkylar Leal Hematocrit (Bld) [Volume fraction] 40.5 % Critically low 42.0-54.0 [facility] Comment on above: Performed By: #### C BC ####[facility] Vjfdvxrzgt6101[address] [place], [place] [address]DrSkylar Leal Hemoglobin (Bld) [Mass/Vol] 13.4 g/dL Critically low 14.0-18.0 [facility] Comment on above: Performed By: #### C BC ####[facility] Ntvnjkbdys0210[address] [place], [place] [address]DrSkylar Joshilorri Elvis IG # 0.11 10e3/ul Critically high 0.00-0.03 [facility] Comment on above: Performed By: #### C BC ####[facility] [address] [place] [address]DrSkylar Farhat Elvis IG % 1.3 % Critically high 0.0-0.5 [facility] Comment on above: Performed By: #### C BC ####[facility] Emezpukshd[address] [place] [address]DrSkylar Leal LYMPH # 1.7 103/ul Normal 1.2-3.8 [facility] Comment on above: Performed By: #### C BC ####[facility] Wbtebdidzb030[address] [place], [place] [address]DrSkylar Leal Lymphocytes/100 WBC (Bld) 19.6 % Critically low 20.5-60.0 [facility] Comment on above: Performed By: #### C BC ####[facility] Hzqmkdohqi8632[address] [place], [place] [address]DrSkylar Leal MANUAL DIFF REQ NO Normal [facility] Comment on above: Performed By: #### C BC ####[facility] Iehxivnaqp176[address] [place], [place] [address]DrSkylar Joshilorri Elvis MCH (RBC) [Entitic mass] 31.1 pg Normal 25.9-34.0 [facility] Comment on above: Performed By: #### C BC ####[facility] Mdfgiztzwr66[address] [place], [place] [address]DrSkylar Joshilorri Elvis MCHC (RBC) [Mass/Vol] 33.1 g/dL Normal 29.9-35.2 [facility] Comment on above: Performed By: #### C BC ####[facility] Hyaktbayyx[address] [place], [place] [address]DrSkylar Leal MCV (RBC) [Entitic vol] 94.0 fL Normal 80.0-94.0 [facility] [facility] Comment on above: Performed By: #### C BC ####[facility] Kwobunzhba[address] [place], [place] [address]DrSkylar Leal MONO # 1.1 103/ul Critically high 0.3-0.8 [facility] Comment on above: Performed By: #### C BC ####[facility] [address]ls[address]hoigw[address] [place] [address]Dr. Farhat Leal Monocytes/100 WBC (Bld) 12.7 % Critically high 1.7-12.0 [facility] Comment on above: Performed By: #### C BC ####[facility] Lllevqmyhp83[address] [place] [address]Dr. Farhat Leal NEUT # 5.3 103/ul Normal 1.4-6.5 [facility] Comment on above: Performed By: #### C BC ####[facility] Gqtagsyyua8735 [place] [address]Dr. Farhat Leal Neutrophils/100 WBC (Bld) 62.5 % Normal 43.0-75.0 [facility] Comment on above: Performed By: #### C BC ####[facility] Follgnzujs7[address] [place], [place] [address]Dr. Farhat Leal Platelet mean volume (Bld) [Entitic vol] 10.1 fL Normal 9.5-13.5 [facility] Comment on above: Performed By: #### C BC ####[facility] Agwcuflkrk[address] [place] [address]Dr. Farhat Leal PLT 220 103/ul Normal 150-450 [facility] Comment on above: Performed By: #### C BC ####[facility] Ghaksirgve[address] [place] [id number]. Farhat Leal RBC 4.31 106/ul Critically low 4.70-6.10 [facility] Comment on above: Performed By: #### C BC ####[facility] Dynkddypuv[address] [place] [address]Dr. Farhat Leal WBC 8.4 103/ul Normal 4.0-11.0 [facility] Comment on above: Performed By: #### C BC ####[facility] Htamplvyzo[address] [place], [place] [address]DrSkylar Madelynlorri Leal PROF CHEM 8 (BAS METB)on 08- 08-2022 Anion gap [Moles/Vol] 15.5 mmol/L Normal [facility] Comment on above: Performed By: #### B MP ####[facility] Whxkikwfnu[address] [place] [address]Dr. Madelynlorri Leal Calcium [Mass/Vol] 8.9 mg/dL Normal 8.5-10.1 [facility] Comment on above: Performed By: #### B MP ####[facility] Dfaeqwfqzg[address] [place] [address]Dr. Farhat Leal Chloride [Moles/Vol] 92 mmol/L Critically low 98-107 [facility] Comment on above: Performed By: #### B MP ####[facility] Knlwhorlzc933[address] [place], [place] [address]Dr. Farhat Leal CO2 [Moles/Vol] 25.7 mmol/L Normal 21.0-32.0 [facility] Comment on above: Performed By: #### B MP ####[facility] Vkxnginlwu12[address] [place], [place] [address]Dr. Farhat Leal Creatinine [Mass/Vol] 1.85 mg/dL Critically high 0.70-1.30 [facility] Comment on above: Performed By: #### B MP ####[facility] Mbbcffmoth13[address] [place], [place] [address]Dr. Farhat Leal EGFR-AF MONTENEGRIN 43 mL/min/1.73m2 Critically low >=60 [facility] Comment on above: Performed By: #### B MP ####[facility] Rducpdmdmp479[address] [place], [place] [address]Dr. Farhat Leal EGFR-NON AF MONTENEGRIN 36 mL/min/1.73m2 Critically low >=60 [facility] Comment on above: Performed By: #### B MP ####[facility] Ccqkabeamu488[address] [place], [place] [address]Dr. Farhat Leal Glucose [Mass/Vol] 410 mg/dL Critically high 74-106 [facility] Comment on above: Performed By: #### B MP ####[facility] Igyagsdqql429[address] [place], [place] [address]Dr. Farhat Leal Potassium [Moles/Vol] 5.2 mmol/L Critically high 3.5-5.1 [facility] Comment on above: Performed By: #### B MP ####[facility] Cjwgvwmpxr6406 [place] [address]Dr. Farhat Leal Sodium [Moles/Vol] 128 mmol/L Critically low 136-145 [facility] Comment on above: Performed By: #### B MP ####[facility] Tmalsqguwv99[address] [place], [place] [address]Dr. Farhat Leal Urea nitrogen [Mass/Vol] 75.0 mg/dL Critically high 7.0-18.0 [facility] Comment on above: Performed By: #### B MP ####[facility] Ylledcfbuc05[address] [place], [place] [address]Dr. Farhat Leal Urea nitrogen/Creatinine [Mass ratio] 40.5 mg/mg Normal [facility] Comment on above: Performed By: #### B MP ####[facility] Upsrykudny099[address] [place], [place] [address]Dr. Farhat Leal PTT HEPARIN MONITORon 2021 aPTT Coag (Bld) [Time] 51.2 s Normal 39.5-54.2 [facility] Comment on above: Performed By: #### P TTHEP ####[facility] Iwtqovekcz930[address] [place], [place] [address]Dr. Farhat Leal aPTT Coag (Bld) [Time] 55.6 s Critically high 39.5-54. 2 [facility] Comment on above: Performed By: #### P TTHEP ####[facility] Sfczoznpox4523[address] [place], [place] [address]Dr. Farhat Leal aPTT Coag (Bld) [Time] 46.1 s Normal 39.5-54.2 [facility] Comment on above: Performed By: #### P TTHEP ####[facility] Pupocaivds0564[address] [place], [place] [address]Dr. Farhat Leal aPTT Coag (Bld) [Time] 53.8 s Normal 39.5-54.2 Th e [facility] Comment on above: Performed By: #### P TTHEP ####[facility] Dwjsiygbqf[address] [place] [address]Dr. Farhat Elvis CBC AUTO DIFFon 09-21-2021 BASO # 0.1 103/ul Normal 0.0-0.1 [facility] Comment on above: Performed By: #### C BC ####[facility] Xhhogoyvol3859[address] [place], [place] [address]Dr. Farhat Leal Basophils/100 WBC (Bld) 0.8 % Normal 0.2-2.0 [facility] Comment on above: Performed By: #### C BC ####[facility] Joomahhzag073[address] [place], [place] [address]Dr. Farhat Leal EO # 0.4 103/ul Normal 0.0-0.7 [facility] Comment on above: Performed By: #### C BC ####[facility] Kqxxovdklw5759[address] [place], [place] [address]Dr. Farhat Leal Eosinophils/100 WBC (Bld) 4.3 % Normal 0.9-7.0 [facility] Comment on above: Performed By: #### C BC ####[facility] Xuzptkwvrz4364[address] [place], [place] [address]Dr. Farhat Elvis Erythrocyte distribution width (RBC) [Ratio] 12.5 % Normal 11.0-15.0 [facility] Comment on above: Performed By: #### C BC ####[facility] Iydzobptsn159[address] [place], [place] [address]Dr. Farhat Leal Hematocrit (Bld) [Volume fraction] 40.8 % Critically low 42.0-54.0 [facility] Comment on above: Performed By: #### C BC ####[facility] Vbsyucgbeo1036[address] [place], [place] [address]Dr. Farhat Leal Hemoglobin (Bld) [Mass/Vol] 13.5 g/dL Critically low 14.0-18.0 [facility] Comment on above: Performed By: #### C BC ####[facility] Rxcfunqxld[address] [place], [place] [id number]. Farhat Leal IG # 0.10 10e3/ul Critically high 0.00-0.03 [facility] Comment on above: Performed By: #### C BC ####[facility] Tcglhexchj8[address] [place] [address]DrSkylar Farhat Elvis IG % 1.2 % Critically high 0.0-0.5 [facility] Comment on above: Performed By: #### C BC ####[facility] Liharppazo2420[address] [place], [place] [address]DrSkylar Farhat Elvis LYMPH # 1.3 103/ul Normal 1.2-3.8 [facility] Comment on above: Performed By: #### C BC ####[facility] Calquxehaw008[address] [place], [place] [address]DrSkylar Farhat Elvis Lymphocytes/100 WBC (Bld) 15.4 % Critically low 20.5-60.0 [facility] Comment on above: Performed By: #### C BC ####[facility] Yjxazozqcr[address] [place], [place] [address]DrSkylar Farhat Elvis MANUAL DIFF REQ NO Normal [facility] Comment on above: Performed By: #### C BC ####[facility] Ayptzamqsr44[address] [place], [place] [address]DrSkylar Farhat Leal MCH (RBC) [Entitic mass] 31.0 pg Normal 25.9-34.0 [facility] Comment on above: Performed By: #### C BC ####[facility] Wvsfwgighg194[address] [place], [place] [address]DrSkylar Farhat Leal MCHC (RBC) [Mass/Vol] 33.1 g/dL Normal 29.9-35.2 [facility] Comment on above: Performed By: #### C BC ####[facility] Ymzqmzavlb01[address] [place], [place] [address]DrSkylar Farhat Elvis MCV (RBC) [Entitic vol] 93.8 fL Normal 80.0-94.0 [facility] Comment on above: Performed By: #### C BC ####[facility] Otramejjjg828[address] [place], [place] [address]Dr. Farhat Leal MONO # 1.2 103/ul Critically high 0.3-0.8 [facility] Comment on above: Performed By: #### C BC ####[facility] Njcuongxel9[address] [place] [address]Dr. Farhat Leal Monocytes/100 WBC (Bld) 13.6 % Critically high 1.7-12.0 [facility] Comment on above: Performed By: #### C BC ####[facility] Gqwhgdcotn17[address] [place] [address]Dr. Farhat Leal NEUT # 5.5 103/ul Normal 1.4-6.5 [facility] Comment on above: Performed By: #### C BC ####[facility] Elzuyygyhz6[address] [place] [address]Dr. Farhat Leal Neutrophils/100 WBC (Bld) 64.7 % Normal 43.0-75.0 [facility] Comment on above: Performed By: #### C BC ####[facility] Aqerqtowyr32[address] [place], [place] [address]Dr. Farhat Leal Platelet mean volume (Bld) [Entitic vol] 9.8 fL Normal 9.5-13.5 [facility] Comment on above: Performed By: #### C BC ####[facility] Nftijajeho038[address] [place] [address]Dr. Farhat Leal PLT 206 103/ul Normal 150-450 [facility] Comment on above: Performed By: #### C BC ####[facility] Txqqsehstg314[address] [place] [address]Dr. Farhat Leal RBC 4.35 106/ul Critically low 4.70-6.10 [facility] Comment on above: Performed By: #### C BC ####[facility] Ivtbcezwov3197 [place] [address]Dr. Farhat Elvis WBC 8.4 103/ul Normal 4.0-11.0 [facility] Comment on above: Performed By: #### C BC ####[facility] Romhmseewx96[address] [place] [address]Dr. Farhat Leal PROF CHEM 8 (BAS METB)on Anion gap [Moles/Vol] 12.3 mmol/L Normal [facility] Comment on above: Performed By: #### B MP ####[facility] Wveqgknczr[address] [place], [place] [address]Dr. Farhat Leal Calcium [Mass/Vol] 8.6 mg/dL Normal 8.5-10.1 [facility] Comment on above: Performed By: #### B MP ####[facility] Jzktdjzsco438[address] [place], [place] [address]Dr. Farhat Leal Chloride [Moles/Vol] 94 mmol/L Critically low 98-107 [facility] Comment on above: Performed By: #### B MP ####[facility] Mflvtqezpu655[address] [place], [place] [address]Dr. Farhat Leal CO2 [Moles/Vol] 30.8 mmol/L Normal 21.0-32.0 [facility] Comment on above: Performed By: #### B MP ####[facility] Ydgnocypcr4522[address] [place], [place] [address]Dr. Farhat Leal Creatinine [Mass/Vol] 1.99 mg/dL Critically high 0.70-1.30 [facility] Comment on above: Performed By: #### B MP ####[facility] Tffzyiawie39[address] [place], [place] [address]Dr. Farhat Leal EGFR-AF MONTENEGRIN 40 mL/min/1.73m2 Critically low >=60 [facility] Comment on above: Performed By: #### B MP ####[facility] Trtwqhyumj2827[address] [place], [place] [address]Dr. Farhat Leal EGFR-NON AF MONTENEGRIN 33 mL/min/1.73m2 Critically low >=60 [facility] Comment on above: Performed By: #### B MP ####[facility] Lfsplkzubo934[address] [place], [place] [address]Dr. Farhat Leal Glucose [Mass/Vol] 264 mg/dL Critically high 74-106 [facility] Comment on above: Performed By: #### B MP ####[facility] Qwwqxrhdzl919[address] [place], [place] [address]Dr. Farhat Leal Potassium [Moles/Vol] 5.1 mmol/L Normal 3.5-5.1 [facility] Comment on above: Performed By: #### B MP ####[facility] Egbbovrhjx177[address] [place], [place] [address]Dr. Farhat Leal Sodium [Moles/Vol] 132 mmol/L Critically low 136-145 [facility] Comment on above: Performed By: #### B MP ####[facility] Uusnskgrbx9440[address] [place], [place] [address]Dr. Farhat Leal Urea nitrogen [Mass/Vol] 72.0 mg/dL Critically high 7.0-18.0 [facility] Comment on above: Performed By: #### B MP ####[facility] Ofqrtmuglk6512[address] [place], [place] [address]Dr. Farhat Leal Urea nitrogen/Creatinine [Mass ratio] 36.2 mg/mg Normal [facility] Comment on above: Performed By: #### B MP ####[facility] Aallfgxlbt365[address] [place], [place] [address]Dr. Farhat Leal PTT HEPARIN MONITORon 2021 aPTT Coag (Bld) [Time] 45.3 s Normal 39.5-54.2 [facility] Comment on above: Performed By: #### P TTHEP ####[facility] Cygcitpmpp267[address] [place], [place] [address]Dr. Farhat Leal aPTT Coag (Bld) [Time] 68.0 s Critically high 39.5-54. 2 [facility] Comment on above: Performed By: #### P TTHEP ####[facility] Jotkafegjz04[address] [place], [place] [address]Dr. Farhat Leal aPTT Coag (Bld) [Time] 69.4 s Critically high 39.5-54. 2 [facility] Comment on above: Performed By: #### P TTHEP ####[facility] Vtbkmilzsd74[address] [place], [place] [address]Dr. Farhat Leal aPTT Coag (Bld) [Time] 53.5 s Normal 39.5-54.2 Th e [facility] Comment on above: Performed By: #### P TTHEP ####[facility] Lclfbsmgmu[address] [place] [address]Dr. Farhat Leal aPTT Coag (Bld) [Time] 126.9 s Critically high 39.5-54. 2 [facility] Comment on above: Performed By: #### P TTHEP ####[facility] Qyqxptkpsn[address] [place], [place] [address]Dr. Farhat Leal CBC AUTO DIFFon 09-20-2021 BASO # 0.1 103/ul Normal 0.0-0.1 [facility] Comment on above: Performed By: #### C BC ####[facility] Xkrkjsonom6836[address] [place], [place] [address]Dr. Farhat Leal Basophils/100 WBC (Bld) 0.7 % Normal 0.2-2.0 [facility] Comment on above: Performed By: #### C BC ####[facility] Dgxzdechbf[address] [place], [place] [address]Dr. Farhat Leal EO # 0.2 103/ul Normal 0.0-0.7 [facility] Comment on above: Performed By: #### C BC ####[facility] Kndlrwfezj47[address] [place], [place] [address]Dr. Farhat Leal Eosinophils/100 WBC (Bld) 3.2 % Normal 0.9-7.0 [facility] Comment on above: Performed By: #### C BC ####[facility] Tjbhpzbyuq[address] [place], [place] [address]Dr. Farhat Leal Erythrocyte distribution width (RBC) [Ratio] 12.4 % Normal 11.0-15.0 [facility] Comment on above: Performed By: #### C BC ####[facility] Meuqcjokvt834[address] [place], [place] [address]Dr. Farhat Leal Hematocrit (Bld) [Volume fraction] 40.1 % Critically low 42.0-54.0 [facility] Comment on above: Performed By: #### C BC ####[facility] Ytmuhdelng64[address] [place] [phone]. Farhat Leal Hemoglobin (Bld) [Mass/Vol] 13.4 g/dL Critically low 14.0-18.0 [facility] Comment on above: Performed By: #### C BC ####[facility] Xmescgckjc23[address] [place] [phone]. Farhat Leal IG # 0.08 10e3/ul Critically high 0.00-0.03 [facility] Comment on above: Performed By: #### C BC ####[facility] Cdroefibqh75[address] [place] [id number]. Farhat Leal IG % 1.1 % Critically high 0.0-0.5 [facility] Comment on above: Performed By: #### C BC ####[facility] Oszvmspmlg0[address] [place] [address]Dr. Farhat Leal LYMPH # 1.3 103/ul Normal 1.2-3.8 [facility] Comment on above: Performed By: #### C BC ####[facility] Esbfatxwqp77[address] [place] [address]Dr. Farhat Leal Lymphocytes/100 WBC (Bld) 17.3 % Critically low 20.5-60.0 [facility] Comment on above: Performed By: #### C BC ####[facility] Bvkzlcmsfd65[address] [place] [phone]. Farhat Leal MANUAL DIFF REQ NO Normal [facility] Comment on above: Performed By: #### C BC ####[facility] Pzoummlqbd9[address] [place] [phone]. Farhat Leal MCH (RBC) [Entitic mass] 31.2 pg Normal 25.9-34.0 [facility] Comment on above: Performed By: #### C BC ####[facility] Xuxeyzfeed12[address] [place] [phone]. Farhat Leal MCHC (RBC) [Mass/Vol] 33.4 g/dL Normal 29.9-35.2 [facility] Comment on above: Performed By: #### C BC ####[facility] Nfrxscocon99[address] [place] [phone]. Farhat Leal MCV (RBC) [Entitic vol] 93.3 fL Normal 80.0-94.0 [facility] Comment on above: Performed By: #### C BC ####[facility] Ksboasdstc16[address] [place] [phone]. Farhat Leal MONO # 0.9 103/ul Critically high 0.3-0.8 [facility] Comment on above: Performed By: #### C BC ####[facility] Gehmqxmmwc38[address] [place] [address]Dr. Farhat Leal Monocytes/100 WBC (Bld) 12.4 % Critically high 1.7-12.0 [facility] Comment on above: Performed By: #### C BC ####[facility] Dguhrqkpro[address] [place], [place] [address]Dr. Farhat Leal NEUT # 4.7 103/ul Normal 1.4-6.5 [facility] Comment on above: Performed By: #### C BC ####[facility] Cxryxwztuo800[address] [place], [place] [address]Dr. Farhat Leal Neutrophils/100 WBC (Bld) 65.3 % Normal 43.0-75.0 [facility] Comment on above: Performed By: #### C BC ####[facility] Txqiahlspa955[address] [place], [place] [address]Dr. Farhat Leal Platelet mean volume (Bld) [Entitic vol] 9.9 fL Normal 9.5-13.5 [facility] Comment on above: Performed By: #### C BC ####[facility] Jxlhxzassu24[address] [place] [phone]. Farhat Leal PLT 180 103/ul Normal 150-450 [facility] Comment on above: Performed By: #### C BC ####[facility] Gyqircojao[address] [place], [place] [id number]. Farhat Leal RBC 4.30 106/ul Critically low 4.70-6.10 [facility] Comment on above: Performed By: #### C BC ####[facility] Xrnhwzyjyn284[address] [place], [place] [address]Dr. Madelynlorri Leal WBC 7.2 103/ul Normal 4.0-11.0 [facility] Comment on above: Performed By: #### C BC ####[facility] Nhocpdrebd4905[address] [place], [place] [address]Dr. Farhat Leal PTT HEPARIN MONITORon 2021 aPTT Coag (Bld) [Time] 26.7 s Critically low 39.5-54.2 [facility] Comment on above: Performed By: #### P TTHEP ####[facility] Jdunxrenzb2[address] [place], [place] [address]Dr. Farhat Leal aPTT Coag (Bld) [Time] 121.0 s Critically high 39.5-54. 2 [facility] Comment on above: Performed By: #### P TTHEP ####[facility] Rsigxnzfgh360[address] [place], [place] [address]Dr. Farhat Leal aPTT Coag (Bld) [Time] 27.6 s Critically low 39.5-54.2 [facility] Comment on above: Performed By: #### P TTHEP ####[facility] Enzeyezsac[address] [place], [place] [address]Dr. Farhat Leal aPTT Coag (Bld) [Time] 139.0 s Critically high 39.5-54. 2 [facility] Comment on above: Performed By: #### P TTHEP ####[facility] Jgtetwerln6838[address] [place], [place] [address]Dr. Farhat Leal CBC AUTO DIFFon 09-19-2021 BASO # 0.0 103/ul Normal 0.0-0.1 [facility] Comment on above: Performed By: #### C BC ####[facility] Zvghgxlzci708[address] [place], [place] [address]Dr. Farhat Leal Basophils/100 WBC (Bld) 0.5 % Normal 0.2-2.0 [facility] Comment on above: Performed By: #### C BC ####[facility] Ciwcjidkux705[address] [place], [place] [address]Dr. Farhat Leal EO # 0.2 103/ul Normal 0.0-0.7 [facility] Comment on above: Performed By: #### C BC ####[facility] Iiugelfprh86[address] [place] [address]Dr. Farhat Elvis Eosinophils/100 WBC (Bld) 2.6 % Normal 0.9-7.0 [facility] Comment on above: Performed By: #### C BC ####[facility] Eiqqclxfjs28[address] [place] [address]Dr. Farhat Elvis Erythrocyte distribution width (RBC) [Ratio] 12.5 % Normal 11.0-15.0 [facility] Comment on above: Performed By: #### C BC ####[facility] Inuaeqkjbg8985[address] [place], [place] [address]Dr. Farhat Leal Hematocrit (Bld) [Volume fraction] 39.2 % Critically low 42.0-54.0 [facility] Comment on above: Performed By: #### C BC ####[facility] Ixfkappwis884[address] [place], [place] [address]Dr. Farhat Leal Hemoglobin (Bld) [Mass/Vol] 13.3 g/dL Critically low 14.0-18.0 [facility] Comment on above: Performed By: #### C BC ####[facility] Pgehswmosx059[address] [place], [place] [address]Dr. Farhat Leal IG # 0.08 10e3/ul Critically high 0.00-0.03 [facility] Comment on above: Performed By: #### C BC ####[facility] Adisyekjrt9340[address] [place], [place] [address]Dr. Farhat Leal IG % 0.9 % Critically high 0.0-0.5 [facility] Comment on above: Performed By: #### C BC ####[facility] Blifrnjyeb230[address] [place], [place] [address]Dr. Farhat Leal LYMPH # 1.5 103/ul Normal 1.2-3.8 [facility] Comment on above: Performed By: #### C BC ####[facility] Icokteppnv0930[address] [place], [place] [address]Dr. Farhat Leal Lymphocytes/100 WBC (Bld) 17.2 % Critically low 20.5-60.0 [facility] Comment on above: Performed By: #### C BC ####[facility] Qgkbytiklk0240 [place] [address]DrSkylar Leal MANUAL DIFF REQ NO Normal [facility] Comment on above: Performed By: #### C BC ####[facility] Ippirrjtpe[address] [place] [address]DrSkylar Leal MCH (RBC) [Entitic mass] 31.7 pg Normal 25.9-34.0 [facility] Comment on above: Performed By: #### C BC ####[facility] Jnoixxjvls4[address] [place], [place] [address]DrSkylar Leal MCHC (RBC) [Mass/Vol] 33.9 g/dL Normal 29.9-35.2 [facility] Comment on above: Performed By: #### C BC ####[facility] [address]xiyzejbj[address] [place], [place] [address]DrSkylar Leal MCV (RBC) [Entitic vol] 93.3 fL Normal 80.0-94.0 [facility] Comment on above: Performed By: #### C BC ####[facility] [address]nch[address] [place], [place] [address]DrSkylar Leal MONO # 1.2 103/ul Critically high 0.3-0.8 [facility] Comment on above: Performed By: #### C BC ####[facility] Pqmilgdgvd1968[address] [place], [place] [address]DrSkylar Leal Monocytes/100 WBC (Bld) 13.7 % Critically high 1.7-12.0 [facility] Comment on above: Performed By: #### C BC ####[facility] Hwuosvgnid4620[address] [place], [place] [address]DrSkylar Leal NEUT # 5.5 103/ul Normal 1.4-6.5 [facility] Comment on above: Performed By: #### C BC ####[facility] Afllllmawr7780[address] [place], [place] [address]DrSkylar Leal Neutrophils/100 WBC (Bld) 65.1 % Normal 43.0-75.0 [facility] Comment on above: Performed By: #### C BC ####[facility] Kiyayjiofj[address] [place] [address]Dr. Farhat Leal Platelet mean volume (Bld) [Entitic vol] 9.6 fL Normal 9.5-13.5 [facility] Comment on above: Performed By: #### C BC ####[facility] Jqxfvvgote9439 [place] [address]Dr. Farhat Leal PLT 163 103/ul Normal 150-450 [facility] Comment on above: Performed By: #### C BC ####[facility] Fosxrygpek7[address] [place], [place] [address]Dr. Farhat Leal RBC 4.20 106/ul Critically low 4.70-6.10 [facility] Comment on above: Performed By: #### C BC ####[facility] Chiehntdwu5570[address] [place], [place] [address]Dr. Farhat Leal WBC 8.4 103/ul Normal 4.0-11.0 [facility] Comment on above: Performed By: #### C BC ####[facility] Ivcapptajq674[address] [place], [place] [address]Dr. Farhat Leal POINT OF CARE GLUCOSEon Glucose [Mass/Vol] 300 mg/dL Critically high 74-106 [facility] Comment on above: Performed By: #### P OCGLUC ####[facility] Gbusyquoyr4099[address] [place], [place] [address]Dr. Farhat Elvis POTASSIUMon 09-19-2021 Potassium [Moles/Vol] 4.9 mmol/L Normal 3.5-5.1 [facility] Comment on above: Performed By: #### K ####[facility] Qctgqqtxps656[address] [place], [place] [address]DrSkylar Farhat Leal PTT HEPARIN MONITORon 2021 aPTT Coag (Bld) [Time] 23.4 s Critically low 39.5-54.2 [facility] Comment on above: Result Comment: repe ated Performed By: #### P TTHEP ####[facility] Pqxqofemta9[address] [place], [place] [address]Dr. Farhat Leal aPTT Coag (Bld) [Time] 101.2 s Critically high 39.5-54. 2 [facility] Comment on above: Performed By: #### P TTHEP ####[facility] Fjxufufckx7325[address] [place], [place] [address]Dr. Farhat Leal aPTT Coag (Bld) [Time] 81.0 s Critically high 39.5-54. 2 [facility] Comment on above: Result Comment: Test Repeated. Critical Value Verified Performed By: #### P TTHEP ####[facility] Mzxzkxwmjh528[address] [place], [place] [address]Dr. Farhat Leal CBC AUTO DIFFon 09-18-2021 BASO # 0.0 103/ul Normal 0.0-0.1 [facility] Comment on above: Performed By: #### C BC ####[facility] Cttzzrqlzu790[address] [place], [place] [address]Dr. Farhat Elvis Basophils/100 WBC (Bld) 0.4 % Normal 0.2-2.0 [facility] Comment on above: Performed By: #### C BC ####[facility] Xvebuwqhes[address] [place], [place] [address]Dr. Farhat Leal EO # 0.1 103/ul Normal 0.0-0.7 [facility] Comment on above: Performed By: #### C BC ####[facility] Vawsbxbwsx7035[address] [place], [place] [address]Dr. Farhat Elvis Eosinophils/100 WBC (Bld) 0.8 % Critically low 0.9-7.0 [facility] Comment on above: Performed By: #### C BC ####[facility] Jpsuhotlhf8933[address] [place], [place] [address]Dr. Farhat Leal Erythrocyte distribution width (RBC) [Ratio] 12.4 % Normal 11.0-15.0 [facility] Comment on above: Performed By: #### C BC ####[facility] Nlxpptzweh[address] [place] [address]Dr. Farhat Leal Hematocrit (Bld) [Volume fraction] 41.7 % Critically low 42.0-54.0 [facility] Comment on above: Performed By: #### C BC ####[facility] Atgpidoglx9[address] [place] [address]Dr. Farhat Leal Hemoglobin (Bld) [Mass/Vol] 14.1 g/dL Normal 14.0-18.0 [facility] Comment on above: Performed By: #### C BC ####[facility] Vucdsepwtg65[address] [place] [address]Dr. Farhat Leal IG # 0.06 10e3/ul Critically high 0.00-0.03 [facility] Comment on above: Performed By: #### C BC ####[facility] Xauyitbwwx6206 [place] [address]Dr. Farhat Leal IG % 0.6 % Critically high 0.0-0.5 [facility] Comment on above: Performed By: #### C BC ####[facility] Grhuwfvtzf37[address] [place] [address]Dr. Farhat Leal LYMPH # 0.6 103/ul Critically low 1.2-3.8 [facility] Comment on above: Performed By: #### C BC ####[facility] Uehcljylog6014 [place] [address]Dr. Farhat Leal Lymphocytes/100 WBC (Bld) 6.5 % Critically low 20.5-60.0 [facility] Comment on above: Performed By: #### C BC ####[facility] Jsievmcflp2323 [place] [address]Dr. Madelynlorri Leal MANUAL DIFF REQ NO Normal [facility] Comment on above: Performed By: #### C BC ####[facility] Rhaashooim[address] [place], [place] [address]Dr. Farhat Leal MCH (RBC) [Entitic mass] 31.6 pg Normal 25.9-34.0 [facility] Comment on above: Performed By: #### C BC ####[facility] Zvyynyxvvb35[address] [place] [phone]. Farhat Leal MCHC (RBC) [Mass/Vol] 33.8 g/dL Normal 29.9-35.2 [facility] Comment on above: Performed By: #### C BC ####[facility] Infvekllhn69[address] [place] [phone]. Farhat Leal MCV (RBC) [Entitic vol] 93.5 fL Normal 80.0-94.0 [facility] Comment on above: Performed By: #### C BC ####[facility] Dndplafzzt7[address] [place] [phone]. Farhat Leal MONO # 1.0 103/ul Critically high 0.3-0.8 [facility] Comment on above: Performed By: #### C BC ####[facility] Cxaxbrfmiz28[address] [place] [address]Dr. Madelynlorri Leal Monocytes/100 WBC (Bld) 10.4 % Normal 1.7-12.0 [facility] Comment on above: Performed By: #### C BC ####[facility] Frvyznxuwy9490 [place] [phone]. Farhat Leal NEUT # 7.8 103/ul Critically high 1.4-6.5 [facility] Comment on above: Performed By: #### C BC ####[facility] Mztrmvfpob1293 [place] [phone]. Farhat Elvis Neutrophils/100 WBC (Bld) 81.3 % Critically high 43.0-75.0 [facility] Comment on above: Performed By: #### C BC ####[facility] Azfmkrwtgp9989 [place] [phone]. Farhat Leal Platelet mean volume (Bld) [Entitic vol] 9.9 fL Normal 9.5-13.5 [facility] Comment on above: Performed By: #### C BC ####[facility] Xmrpmxmapf6120 [place] [phone]. Madelynlorri Leal PLT 169 103/ul Normal 150-450 [facility] Comment on above: Performed By: #### C BC ####[facility] Zugeyfoyyc02[address] [place] [phone]. Farhat Leal RBC 4.46 106/ul Critically low 4.70-6.10 [facility] Comment on above: Performed By: #### C BC ####[facility] Unzlowtqca5544 [place] [phone]. Farhat Leal WBC 9.6 103/ul Normal 4.0-11.0 [facility] Comment on above: Performed By: #### C BC ####[facility] Myqitfgjrp2975 [place] [phone]. Farhat Leal BASO # 0.0 103/ul Normal 0.0-0.1 [facility] Comment on above: Performed By: #### C BC ####[facility] Hngfosxuxl7781 [place] [phone]. Farhat Leal Basophils/100 WBC (Bld) 0.4 % Normal 0.2-2.0 [facility] Comment on above: Performed By: #### C BC ####[facility] Xxgrsfzzzl9847 [place] [phone]. Farhat Leal EO # 0.1 103/ul Normal 0.0-0.7 [facility] Comment on above: Performed By: #### C BC ####[facility] Pczmospklg8949 [place] [phone]. Farhat Leal Eosinophils/100 WBC (Bld) 1.1 % Normal 0.9-7.0 [facility] Comment on above: Performed By: #### C BC ####[facility] Ddtlconame5433 [place] [phone]. Farhat Leal Erythrocyte distribution width (RBC) [Ratio] 12.6 % Normal 11.0-15.0 [facility] Comment on above: Performed By: #### C BC ####[facility] Zjqtyizlvr9492 [place] [phone]. Farhat Leal Hematocrit (Bld) [Volume fraction] 40.8 % Critically low 42.0-54.0 [facility] Comment on above: Performed By: #### C BC ####[facility] Vqczcxnxbm1716 [place] [phone]. Farhat Leal Hemoglobin (Bld) [Mass/Vol] 13.6 g/dL Critically low 14.0-18.0 [facility] Comment on above: Performed By: #### C BC ####[facility] Upxomigjqd2538 [place] [phone]. Farhat Leal IG # 0.08 10e3/ul Critically high 0.00-0.03 [facility] Comment on above: Performed By: #### C BC ####[facility] Dtqfknohhx2571 [place] [address]Dr. Farhat Leal IG % 0.9 % Critically high 0.0-0.5 [facility] Comment on above: Performed By: #### C BC ####[facility] Wvhiurbtlh5[address] [place] [address]Dr. Farhat Leal LYMPH # 0.8 103/ul Critically low 1.2-3.8 [facility] Comment on above: Performed By: #### C BC ####[facility] Llctvwflbf6499 [place] [address]Dr. Farhat Leal Lymphocytes/100 WBC (Bld) 8.7 % Critically low 20.5-60.0 [facility] Comment on above: Performed By: #### C BC ####[facility] Zheskdpcwf2561 [place] [address]Dr. Farhat Leal MANUAL DIFF REQ NO Normal [facility] Comment on above: Performed By: #### C BC ####[facility] Itvopbmden1724[address] [place], [place] [address]Dr. Farhat Leal MCH (RBC) [Entitic mass] 31.6 pg Normal 25.9-34.0 [facility] Comment on above: Performed By: #### C BC ####[facility] Ukppujshwj3588[address] [place], [place] [address]Dr. Farhat Leal MCHC (RBC) [Mass/Vol] 33.3 g/dL Normal 29.9-35.2 [facility] Comment on above: Performed By: #### C BC ####[facility] Eusngtpgim3843 [place] [phone]. Farhat Leal MCV (RBC) [Entitic vol] 94.9 fL Critically high 80.0-94.0 [facility] Comment on above: Performed By: #### C BC ####[facility] Hoibuhdnsm9159 [place] [phone]. Farhat Leal MONO # 1.0 103/ul Critically high 0.3-0.8 [facility] Comment on above: Performed By: #### C BC ####[facility] Yhevqgbpgk4591 [place] [phone]. Farhat Leal Monocytes/100 WBC (Bld) 11.3 % Normal 1.7-12.0 [facility] Comment on above: Performed By: #### C BC ####[facility] Cwokofevax[address] [place], [place] [address]Dr. Farhat Leal NEUT # 6.9 103/ul Critically high 1.4-6.5 [facility] Comment on above: Performed By: #### C BC ####[facility] Ogfqdqnnvf4093 [place] [phone]. Farhat Leal Neutrophils/100 WBC (Bld) 77.6 % Critically high 43.0-75.0 [facility] Comment on above: Performed By: #### C BC ####[facility] Lawafhhnnt5917 [place] [phone]. Farhat Leal Platelet mean volume (Bld) [Entitic vol] 9.7 fL Normal 9.5-13.5 [facility] Comment on above: Performed By: #### C BC ####[facility] Mcchemknqg7157 [place] [phone]. Farhat Leal PLT 171 103/ul Normal 150-450 [facility] Comment on above: Performed By: #### C BC ####[facility] Nmepckhunf7903 [place] [phone]. Farhat Leal RBC 4.30 106/ul Critically low 4.70-6.10 [facility] Comment on above: Performed By: #### C BC ####[facility] Ekqzykqnri0214 [place], [place] [address]Bi. Farhat Leal WBC 8.9 103/ul Normal 4.0-11.0 [facility] Comment on above: Performed By: #### C BC ####[facility] Jiidbispjr3726 [place], [place] [address]Ls. Farhat Elvis Covid-19 PCR (CVDTB)on SARS-CoV-2 (COVID-19) RNA JOSH+probe Ql (Unsp spec) Not detected Normal NOT DETECTED [facility] Comment on above: Result Comment: When [...] for this test is supported by the Hydro[employer] Professor of Health and Human Service's declaration that [...] be used). Performed By: #### C VDTBH ####[facility] Tuwafjijwe5232 [place] [address]DrSkylar Leal PROF 14(COMP METB)on 022 Albumin [Mass/Vol] 2.6 g/dL Critically low 3.4-5.0 Th e [facility] Comment on above: Performed By: #### C MP ####[facility] Ztispabxmz2048 [place] [phone] Leal Albumin/Globulin [Mass ratio] 0.7 {ratio} Normal [facility] Comment on above: Performed By: #### C MP ####[facility] Skoddqywax9051 [place] [phone] Leal ALP [Catalytic activity/Vol] 88 U/L Normal 46-116 [facility] Comment on above: Performed By: #### C MP ####[facility] Ufaxbgouch2468 [place] [address]Dr. Farhat Leal ALT [Catalytic activity/Vol] 15 U/L Critically low 16-63 [facility] Comment on above: Performed By: #### C MP ####[facility] Dvzlpmubiw6791 [place] [address]Dr. Farhat Elvis Anion gap [Moles/Vol] 11.7 mmol/L Normal [facility] Comment on above: Performed By: #### C MP ####[facility] Xeogcabsul730[address] [place], [place] [address]Dr. Farhat Elvis AST [Catalytic activity/Vol] 25 U/L Normal 15-37 [facility] Comment on above: Performed By: #### C MP ####[facility] Szshlgwdcl4468[address] [place], [place] [address]Dr. Farhat Elvis Bilirubin [Mass/Vol] 0.6 mg/dL Normal 0.2-1.0 [facility] Comment on above: Performed By: #### C MP ####[facility] Xustzkosmy530[address] [place], [place] [address]Dr. Farhat Elvis Calcium [Mass/Vol] 8.9 mg/dL Normal 8.5-10.1 [facility] Comment on above: Performed By: #### C MP ####[facility] Iqwcwqmska[address] [place], [place] [id number]. Farhat Elvis Chloride [Moles/Vol] 93 mmol/L Critically low 98-107 [facility] Comment on above: Performed By: #### C MP ####[facility] Qcgmtxwahp716[address] [place], [place] [id number]. Madelynlorri Leal CO2 [Moles/Vol] 28.9 mmol/L Normal 21.0-32.0 [facility] Comment on above: Performed By: #### C MP ####[facility] Jpqpxymwhg4564[address] [place], [place] [address]Dr. Madelynlorri Leal Creatinine [Mass/Vol] 2.09 mg/dL Critically high 0.70-1.30 [facility] Comment on above: Performed By: #### C MP ####[facility] Keqblbaklz5[address] [place] [address]Dr. Madelynlorri Elvis EGFR-AF MONTENEGRIN 38 mL/min/1.73m2 Critically low >=60 [facility] Comment on above: Performed By: #### C MP ####[facility] Fvywindnzj864[address] [place], [place] [address]Dr. Farhat Leal EGFR-NON AF MONTENEGRIN 31 mL/min/1.73m2 Critically low >=60 [facility] Comment on above: Performed By: #### C MP ####[facility] Lkuujlsmfd368[address] [place], [place] [address]Dr. Farhat Leal Globulin (S) [Mass/Vol] 3.7 g/dL Normal [facility] Comment on above: Performed By: #### C MP ####[facility] Ibvueifsjp548[address] [place], [place] [address]Dr. Farhat Leal Glucose [Mass/Vol] 214 mg/dL Critically high 74-106 [facility] Comment on above: Performed By: #### C MP ####[facility] Vmnehkafuq2460[address] [place], [place] [address]Dr. Farhat Leal Potassium [Moles/Vol] 5.6 mmol/L Critically high 3.5-5.1 [facility] Comment on above: Performed By: #### C MP ####[facility] Jkibzrgjcs7112[address] [place], [place] [address]Dr. Farhat Leal Protein [Mass/Vol] 6.3 g/dL Critically low 6.4-8.2 [facility] Comment on above: Performed By: #### C MP ####[facility] Reqayllgxs695[address] [place], [place] [address]Dr. Farhat Leal Sodium [Moles/Vol] 128 mmol/L Critically low 136-145 [facility] Comment on above: Performed By: #### C MP ####[facility] Usrmtucpzi4800[address] [place], [place] [address]Dr. Farhat Leal Urea nitrogen [Mass/Vol] 65.0 mg/dL Critically high 7.0-18.0 [facility] Comment on above: Performed By: #### C MP ####[facility] Bemgmwhvlf8535[address] [place], [place] [address]Dr. Farhat Elvis Urea nitrogen/Creatinine [Mass ratio] 31.1 mg/mg Normal [facility] Comment on above: Performed By: #### C MP ####[facility] Cbsckpkljt509[address] [place], [place] [address]Dr. Farhat Elvis Albumin [Mass/Vol] 2.5 g/dL Critically low 3.4-5.0 Th e [facility] Comment on above: Performed By: #### T MYRIAM, CMP ####[facility] Cnwovuskxn0825[address] [place], [place] [address]Dr. Farhat Leal Albumin/Globulin [Mass ratio] 0.7 {ratio} Normal [facility] Comment on above: Performed By: #### T MYRIAM, CMP ####[facility] Xjdxgxlplx3440[address] [place], [place] [address]Dr. Madelynlorri Leal ALP [Catalytic activity/Vol] 83 U/L Normal 46-116 [facility] Comment on above: Performed By: #### T MYRIAM, CMP ####[facility] Vashcyghaw730[address] [place], [place] [address]Dr. Farhat Elvis ALT [Catalytic activity/Vol] 16 U/L Normal 16-63 [facility] Comment on above: Performed By: #### T MYRIAM, CMP ####[facility] Sembqggbvo7650[address] [place], [place] [address]Dr. Farhat Elvis Anion gap [Moles/Vol] 9.7 mmol/L Normal [facility] Comment on above: Performed By: #### T MYRIAM, CMP ####[facility] Sitawkpdhs959[address] [place], [place] [address]Dr. Farhat Elvis AST [Catalytic activity/Vol] 27 U/L Normal 15-37 [facility] Comment on above: Performed By: #### T MYRIAM, CMP ####[facility] Vzdqrljcaz787[address] [place], [place] [address]Dr. Farhat Leal Bilirubin [Mass/Vol] 0.5 mg/dL Normal 0.2-1.0 [facility] Comment on above: Performed By: #### T SH, CMP ####[facility] Tqzoiszwdm2149[address] [place], [place] [address]Dr. Farhat Leal Calcium [Mass/Vol] 8.8 mg/dL Normal 8.5-10.1 [facility] Comment on above: Performed By: #### T SH, CMP ####[facility] Kzjzubvipc[address] [place], [place] [address]Dr. Farhat Leal Chloride [Moles/Vol] 95 mmol/L Critically low 98-107 [facility] Comment on above: Performed By: #### T MYRAIM, CMP ####[facility] Ylccyvaoca884[address] [place], [place] [address]Dr. Farhat Leal CO2 [Moles/Vol] 30.5 mmol/L Normal 21.0-32.0 [facility] Comment on above: Performed By: #### T MYRIAM, CMP ####[facility] Bfqugnbcit207[address] [place], [place] [address]Dr. Farhat Leal Creatinine [Mass/Vol] 2.18 mg/dL Critically high 0.70-1.30 [facility] Comment on above: Performed By: #### T MYRIAM, CMP ####[facility] Zchjcemcqu905[address] [place], [place] [address]Dr. Farhat Leal EGFR-AF MONTENEGRIN 36 mL/min/1.73m2 Critically low >=60 [facility] Comment on above: Performed By: #### T MYRIAM, CMP ####[facility] Xcidfbgfmy264[address] [place], [place] [address]Dr. Farhat Leal EGFR-NON AF MONTENEGRIN 30 mL/min/1.73m2 Critically low >=60 [facility] Comment on above: Performed By: #### T MYRIAM, CMP ####[facility] Ikwlxsgbtp295[address] [place], [place] [address]Dr. Farhat Leal Globulin (S) [Mass/Vol] 3.5 g/dL Normal [facility] Comment on above: Performed By: #### T MYRIAM, CMP ####[facility] Okyzzuntss765[address] [place], [place] [address]Dr. Madelynlorri Leal Glucose [Mass/Vol] 141 mg/dL Critically high 74-106 [facility] Comment on above: Performed By: #### T SH, CMP ####[facility] Yjuteigswc4210[address] [place], [place] [address]Dr. Farhat Leal Potassium [Moles/Vol] 5.2 mmol/L Critically high 3.5-5.1 [facility] Comment on above: Performed By: #### T SH, CMP ####[facility] Qnmajbmewo206[address] [place], [place] [address]Dr. Farhat Leal Protein [Mass/Vol] 6.0 g/dL Critically low 6.4-8.2 [facility] Comment on above: Performed By: #### T MYRIAM, CMP ####[facility] Zchlngsbgh[address] [place], [place] [address]Dr. Farhat Leal Sodium [Moles/Vol] 130 mmol/L Critically low 136-145 [facility] Comment on above: Performed By: #### T MYRIAM, CMP ####[facility] Lktcykapkg022[address] [place], [place] [address]Dr. Farhat Leal Urea nitrogen [Mass/Vol] 63.0 mg/dL Critically high 7.0-18.0 [facility] Comment on above: Performed By: #### T MYRIAM, CMP ####[facility] Trqyijsjnc13[address] [place], [place] [address]Dr. Farhat Leal Urea nitrogen/Creatinine [Mass ratio] 28.9 mg/mg Normal [facility] Comment on above: Performed By: #### T SH, CMP ####[facility] Jdbwgejivm814[address] [place], [place] [address]Dr. Farhat Leal PROTIMEon 09-18-2021 INR Coag (PPP) [Relative time] 1.06 {INR} Normal [facility] Comment on above: Performed By: #### P T, PTT ####[facility] Ferhfuglcr19[address] [place], [place] [address]Dr. Farhat Leal INR GUIDELINES SEE BELOW Normal [facility] Comment on above: Result Comment: MALINA RED INR: 2.0 - 3.0 CONDITIONS NOT LISTED BELOW 2.5 - 3.5 FOR PROSTHETIC HEART VALVE REPLACEMENT 2.5 - 3.5 RECURRENT THROMBOSIS Performed By: #### P T, PTT ####[facility] Ezkmuvmctw30[address] [place] [address]Dr. Farhat Leal PT Coag (PPP) [Time] 11.4 s Normal 9.0-11.6 [facility] Comment on above: Performed By: #### P T, PTT ####[facility] Lsogmwkfmv39[address] [place] [address]Dr. Farhat Leal PTTon 09-18-2021 aPTT Coag (Bld) [Time] 27.9 s Normal 22.3-36.2 [facility] Comment on above: Performed By: #### P T, PTT ####[facility] Epmxmusuqy5183 [place] [address]Dr. Farhat Leal TSHon 09-18-2021 TSH 7.099 uIU/mL Critically high 0.358-3.740 [facility] Comment on above: Performed By: #### T SH, CMP ####[facility] Roqwvouthn39[address] [place], [place] [address]Dr. Farhat Leal US SALOME DOP LEG RTon 09-19-19 22 US SALOME DOP LEG RT Normal [facility] XR CHEST 1 Von 09-18-2021 XR CHEST 1 V Normal [facility] XR HIP RT 2 3V W PELVISon XR HIP RT 2 3V W PELVIS Normal [facility] Vital Signs Date Time Vital Sign Value Performing Clinician Facility 03-18-2023 13:37-0500 Body temperature 98.01 [degF] [place] [facility] Work Phone: [facility] 03-18-2023 13:37-0500 Diastolic blood pressure 64 mm[Hg] [facility] DO Work Phone: [facility] 03-18-2023 13:37-0500 Heart rate 72 /min [facility] VSE EVAKUATORY ROSSII Work Phone: [facility] 03-18-2023 13:37-0500 SaO2% (BldA) [Mass fraction] 98 % Ni Petznick DO Work Phone: [facility] 03-18-2023 13:37-0500 Systolic blood pressure 118 mm[Hg] Ni Petznick DO Work Phone: [facility] 07-20-2022 13:35-0400 Body temperature 97.4 [degF] DO Devon Ball Work Phone: [facility] 07-20-2022 13:35-0400 Diastolic blood pressure 50 mm[Hg] DO Devon Ball Work Phone: [facility] 07-20-2022 13:35-0400 Heart rate 67 /min DO Devon Ball Work Phone: [facility] 07-20-2022 13:35-0400 Respiratory rate 20 /min DO Devon Ball Work Phone: [facility] 07-20-2022 13:35-0400 Systolic blood pressure 98 mm[Hg] DO Devon Ball Work Phone: [facility] 06-29-2022 14:46-0400 Body height 193.04 cm DO Devon Ball Work Phone: [facility] 02-26-2022 13:11-0500 Body temperature 96.6 [degF] Hina Peterson MD Work Phone: [facility] 02-26-2022 13:11-0500 Diastolic blood pressure 75 mm[Hg] Hina Peterson MD Work Phone: [facility] 02-26-2022 13:11-0500 Heart rate 75 /min Hina Peterson MD Work Phone: [facility] 02-26-2022 13:11-0500 Systolic blood pressure 88 mm[Hg] Hina Peterson MD Work Phone: [facility] 02-05-2022 08:29-0500 Body temperature 96.69 [degF] [facility] Work Phone: [facility] 02-05-2022 08:29-0500 Diastolic blood pressure 42 mm[Hg] [facility] Work Phone: [facility] 02-05-2022 08:29-0500 Heart rate 79 /min [facility] Work Phone: [facility] 02-05-2022 08:29-0500 SaO2% (BldA) [Mass fraction] 100 % [facility] Work Phone: [facility] 02-05-2022 08:29-0500 Systolic blood pressure 72 mm[Hg] [facility] Work Phone: [facility] 01-12-2022 11:00-0500 Diastolic blood pressure 54 mm[Hg] Alissa Major [employer]CRAPS MANAGER Work Phone: [facility] 01-12-2022 11:00-0500 Heart rate 88 /min Alissa Major [employer]CRAPS MANAGER Work Phone: [facility] 01-12-2022 11:00-0500 SaO2% (BldA) [Mass fraction] 93 % Alissa Major [employer].CRAPS MANAGER Work Phone: [facility] 01-12-2022 11:00-0500 Systolic blood pressure 96 mm[Hg] Alissa Major [employer].CRAPS MANAGER Work Phone: [facility] 01-12-2022 10:12-0500 Body temperature 97.9 [degF] Alissa Major [employer].CRAPS MANAGER Work Phone: [facility] 01-12-2022 10:12-0500 Respiratory rate 18 /min Alissa Major [employer].CRAPS MANAGER Work Phone: [facility] 11-17-2021 15:59-0400 Body height 193 cm No Reeder DO Work Phone: [facility] 11-17-2021 15:59-0400 Body weight 111.58 kg No Reeder DO Work Phone: [facility] 11-17-2021 15:59-0400 Diastolic blood pressure 59 mm[Hg] No Reeder DO Work Phone: [facility] 11-17-2021 15:59-0400 Heart rate 86 /min No Reeder DO Work Phone: [facility] 11-17-2021 15:59-0400 SaO2% (BldA) [Mass fraction] 97 % No Reeder DO Work Phone: [facility] 11-17-2021 15:59-0400 Systolic blood pressure 104 mm[Hg] No Reeder DO Work Phone: [facility] Encounters Encounter Date Encounter Type Care Provider Facility Start: 04-11-2023 End: 04-11-2023 ambulatory Devon Moreira Other [employer] Other Start: 04-11-2023 Telephone encounter Devon Manzo [facility] Start: 03-18-2023 End: 03-18-2023 ambulatory NI CABRERA Not Available Start: 03-18-2023 End: 03-18-2023 Office outpatient visit 25 minutes Ni Cabrera DO Work Phone: [facility] [address] Comment on above: 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 Start: 01-14-2023 End: 01-14-2023 ambulatory Devon Lillie Other [employer] Other Start: 01-14-2023 Sbsq nursing facil c are/day minor complj 15 min Devon Moreira [facility] Start: 12-10-2022 End: 12-10-2022 ambulatory Devon Lillie Other [employer] Other Start: 12-10-2022 Sbsq nursing facil c are/day minor complj 15 min [facility] Start: 11-12-2022 End: 11-12-2022 ambulatory Devon Moreira Other [employer] Other Start: 11-12-2022 Sbsq nursing facil c are/day minor complj 15 min [facility] Start: 10-16-2022 Refill Asia Pike MD Work Phone: [facility] Comment on above: Med Change Request Start: 10-12-2022 End: 10-12-2022 ambulatory Devon Moreira Other [employer] Other Start: 10-12-2022 Telephone encounter Devon Moreira [facility] Start: 10-08-2022 End: 10-08-2022 ambulatory Devon Moreira Other [employer] Other Start: 10-08-2022 Sbsq nursing facil c are/day new problem 25 min [facility] Start: 09-22-2022 [facility] Comment on above: Rx Refills Start: 09-10-2022 End: 09-10-2022 ambulatory Devon Moreira Other [employer] Other Start: 09-10-2022 Sbsq nursing facil c are/day new problem 25 min [facility] Start: 09-09-2022 End: 09-09-2022 ambulatory [facility] Start: 08-06-2022 End: 08-06-2022 ambulatory Devon Moreira Other [employer] Other Start: 08-06-2022 Sbsq nursing facil c are/day new problem 25 min [facility] Start: 07-22-2022 End: 07-22-2022 ambulatory Devon Moreira Other [employer] Other Start: 07-22-2022 Telephone encounter Devon Manzo [facility] Start: 07-20-2022 End: 07-20-2022 ambulatory Sadia Aguilar Facility:[facility] Start: 07-20-2022 End: 07-20-2022 ambulatory DO Devon Moreira Work Phone: [facility] Work Phone: Start: 07-20-2022 End: 07-20-2022 Discharged Recurring DO Devon Moreira Work Phone: [facility] Work Phone: Start: 07-13-2022 End: 07-13-[address] DEVON MOREIRA Facility:[facility] Start: 07-10-2022 End: 07-10-[address] DEVON MOREIRA Facility:[facility] Start: 07-03-2022 End: 07-03-[address] DEVON MOREIRA Facility:[facility] Start: 06-26-2022 End: 06-26-[address] DEVON MOREIRA Facility:[facility] Start: 06-26-2022 End: 06-26-[address] DEVON MOREIRA Facility:[facility] Start: 06-25-2022 End: 06-25-2022 ambulatory Devon Moreira Other [employer] Other Start: 06-25-2022 Sbsq nursing facil c are/day minor complj 15 min Devon Moreira [facility] Start: 06-19-2022 End: 06-19-[address] DEVON MOREIRA Facility:[facility] Start: 06-15-2022 End: 07-15-2022 ambulatory SHAIKH Kate MURRAY Facility:[facility] Start: 06-12-2022 End: 06-12-[address] DOCTOR WALSH Facility:[facility] Start: 06-05-2022 Sbsq nursing facil c are/day new problem 25 min Devon Moreira [facility] Start: 06-05-2022 End: 06-05-[address] DEVON MOREIRA [facility] [employer] Other Start: 05-29-2022 End: 05-29-[address] DEVON MORERIA Facility:[facility] Start: 05-22-2022 End: 05-22-[address] DEVON MOREIRA Facility:[facility] Start: 05-20-2022 End: 05-20-[address] DEVON MOREIRA Facility:[facility] Start: 05-18-2022 End: 06-12-2022 ambulatory SHAIKH Kate MURRAY Facility:[facility] Start: 05-15-2022 End: 05-15-[address] DEVON MOREIRA Facility:[facility] Start: 05-13-2022 End: 05-13-2022 ambulatory Van Olivarez [employer].CRAPS MANAGER Work Phone: [facility] Comment on above: results Start: 05-13-2022 E-mail encounter fro m caregiver Van Olivarez APRN.CRAPS MANAGER Work Phone: [facility] Start: 05-08-2022 End: 05-08-[address] DEVON MOREIRA Facility:[facility] Start: 05-07-2022 End: 05-07-2022 ambulatory Devon Moreira Other [employer] Other Start: 05-07-2022 Sbs nursing facil c are/day new problem 25 [...] MOREIRA Facility:[facility] Start: 04-02-2022 ambulatory Van cortes [employer].CRAPS MANAGER Work Phone: [facility] Start: 04-01-2022 End: 04-01-[address] DEVON MOREIRA Facility:[facility] Start: 03-22-2022 Refill Asia Pike MD Work Phone: [facility] Comment on above: Med Change Request Start: 03-21-2022 ambulatory SHAIKH Kate MURRAY Facilit y:[facility]1 Start: 03-11-2022 End: 03-11-[address] DEVON MOREIRA Facility:[facility] Start: 03-10-2022 End: 03-10-2022 ambulatory [facility] Start: 02-27-2022 Refill Samira Serna [facility] Comment on above: Rx Refills Start: 02-26-2022 End: 02-26-2022 ambulatory DEVON MOREIRA Facility:[facility] Start: 02-26-2022 End: 02-26-2022 Patient encounter [...] Start: 02-05-2022 End: 02-06-2022 ambulatory ARTUR CHEN Facility:[facility] Start: 02-05-2022 End: 02-05-2022 Patient encounter procedure [facility] Work Phone: [facility] Comment on above: Kidney replaced by t ransplant (Primary Dx); 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; [facility] current use of immunosuppressive drug Start: 01-26-2022 End: 01-26-[address] DEVON MOREIRA Facility:[facility] Start: 01-20-2022 Telephone encounter Van Olivarez APRN.CRAPS MANAGER Work Phone: [facility] Comment on above: Results Start: 01-19-2022 End: 01-19-[address] DEVON MOREIRA Facility:[facility] Start: 01-16-2022 ambulatory SHAIKH Kate MURRAY Facilit y:[facility] Start: 01-12-2022 End: 01-12-2022 Subsequent hospital visit by physician Alissa Chavira APRN.CRAPS MANAGER Work Phone: [facility] Comment on above: ILIANA (acute kidney in jury) ([facility]) [N17.9] Start: 12-30-2021 End: 12-30-2021 ambulatory Paresh Fonseca MD Work Phone: Infectious Disease Comment on above: MRSA bacteremia (Arabella munira Dx); Diabetic foot ulcer with osteomyelitis (HCC) Start: 12-30-2021 End: 12-30-2021 Telemedicine consultation with patient Paresh Fonseca MD Work Phone: [facility] Start: 12-29-2021 End: 12-29-2021 ambulatory [...] Start: 12-08-2021 Orders Only Artur Burger charles [employer].CRAPS MANAGER Work Phone: [facility] Comment on above: Kidney replaced by t ransplant (Primary Dx) Start: 12-07-2021 ambulatory Paresh Fonseca MD Work Phone: [facility] Comment on above: CoPat Start (copat s top 12/27/21) Start: 12-05-2021 Telephone encounter Paresh Fonseca MD Work Phone: Infectious Disease Comment on above: Patient Update (evus held discussion/) Start: 12-01-2021 Follow-up encounter [facility] Provider [facility] Start: 12-01-2021 Patient encounter procedure [facility] Prov ider [facility] Department Start: 11-23-2021 End: 11-28-2021 [...] management encounter Start: 11-14-2021 End: 11-15-2021 ambulatory ASHLEY Cortes [facility][NOTE 2] Facility:[facility]1 Start: 10-24-2021 End: 11-15-2021 ambulatory SHAIKH Kate MURRAY Facility:[facility] Start: 10-22-2021 End: 10-23-2021 ambulatory [facility] Sebastian [facility] [place]NOTE 2] Facility:[facility]1 Start: 10-06-2021 ambulatory Van cortes [employer].CRAPS MANAGER Work Phone: [facility] Start: 09-30-2021 Refill Asia Pike MD Work Phone: [facility] Comment on above: Refill Request Start: 09-19-2021 End: 09-24-2021 Evaluation and management of inpatient DR PROSPER LEES Facility:[facility]1 Start: 09-18-2021 End: 09-19-[address] DEVON MOREIRA Facility:[facility] Start: 07-11-2021 Refill Asia Pike MD Work Phone: [facility] Comment on above: Refill Request Start: 06-05-2021 Telephone encounter Van Olivarez [employer].CRAPS MANAGER Work Phone: [facility] Comment on above: Results Start: 02-05-2021 End: 02-13-2021 ambulatory UNKNOWN PROVIDER Facility:[facility] Procedures Date Procedure Procedure Detail Performing Clinician Start: 03-18-2023 Hemoglobin glycosyla rk a1c Ni Cabrera DO Work Phone: Start: 02-05-2022 Creatinine other source Asia Pike MD Work Phone: Start: 02-05-2022 Urnls dip stick/tabl et rgnt auto w/o microscopy Asia Pike MD Work Phone: Start: 01-12-2022 Prothrombin time Alissa Chavira [employer].CRAPS MANAGER Work Phone: Start: 12-01-2021 PACEMAKER CLINIC CHECK [facility] Provider Start: 11-29-2021 Microscopic examinat ion of blood, culture DR PROSPER LEES Comment on above: Performed By: #### B [id number] ####[facility] [address] [place], [place] [address]CcSkylar Leal Start: 11-27-2021 Insertion of Infusio n [...] renal transplant KIDNEY TRANSPLANT STATUS Van Olivarez [employer].CRAPS MANAGER Work Phone: History of renal transplant Kidney replaced by transplant Artur Chen [employer].CRAPS MANAGER Work Phone: History of renal transplant Kidney replaced by transplant [facility] Work Phone: History of renal transplant Devon Lilile Other History of renal transplant Kidney replaced by transplant Asia Pike MD Work Phone: History of renal transplant Devon Moreira Other Plan of Treatment Date Care Activity Detail Author Start: 06-17-2023 End: 06-17-2023 Patient encounter procedure 06/17/2023 2:15 PM EDT Office Visit [facility] [address] [place] [address] Ni Cabrera DO [address] [place] [address] [facility] [address] Start: 06-16-2023 Hemoglobin A1c measurement Diabetes: Hemoglobin A1C [facility] Start: 02-26-2023 BP CONTROLLED (<130/80) BP CONTROLLE D (<130/80) [facility] Start: 02-05-2023 BP CONTROLLED (<130/80) BP CONTROLLE D (<130/80) [facility] Start: 01-12-2023 BP CONTROLLED (<130/80) BP CONTROLLE D (<130/80) [facility] Start: 11-17-2022 BP CONTROLLED (<130/80) BP CONTROLLE D (<130/80) [facility] Start: 10-16-2022 Influenza vaccination C [facility] Start: 05-15-2022 Medicare Annual Wellness (AWV) Medicare Annual Wellness (AWV) [facility] Start: 04-08-2022 BP CONTROLLED (<130/80) BP CONTROLLE D (<130/80) [facility] Start: 02-15-2022 ADVANCE DIRECTIVE DISCUSSION ADVANCE DIRECTIVE DISCUSSION [facility] Start: 02-15-2022 DEPRESSION ASSESSMENT DEPRESSION ASS ESSMENT [facility] Start: 02-05-2022 COVID-19 VACCINE (5 - Yung risk series) COVID-19 VACCINE (5 - Yung risk series) [facility] Start: 11-27-2021 COVID-19 VACCINE (4 - Booster for Yung series) COVID-19 VACCINE (4 - Booster for Yung series) [facility] Start: 11-04-2021 Hemoglobin A1c/Hemoglobin.total in Blood HBA1C [facility] Start: 10-16-2021 Influenza vaccination C [facility] Start: 03-26-2021 COVID-19 VACCINE (3 - Yung risk 3-dose series) COVID-19 VACCINE (3 - Yung risk 3-dose series) [facility] Start: 03-26-2021 COVID-19 VACCINE (3 - Yung risk series) COVID-19 VACCINE (3 - Yung risk series) [facility] Start: 02-15-2021 ADVANCE DIRECTIVE DISCUSSION ADVANCE DIRECTIVE DISCUSSION [facility] Start: 02-15-2021 DEPRESSION ASSESSMENT DEPRESSION ASS ESSMENT [facility] Start: 01-05-2016 Hepatitis B screening URINE AL BUMIN:CREATININE RATIO [facility] Start: 07-31-2015 Pneumococcal Vaccine : 65+ Years (3 - PCV) Pneumococcal Vaccine: 65+ Years (3 - PCV) [facility] Start: 04-06-2015 Hemoglobin A1c/Hemoglobin.total in Blood HBA1C [facility] Start: 11-22-2010 Hepatitis B surface antibody level LDL CHOLESTEROL [facility] Start: 2009 ADULT PREVNAR-13 ADULT PREVNAR-13 Cl [facility] Start: 2009 PNEUMOVAX AGE 65 AND OVER WITH 5YR LOOKBACK (#1) PNEUMOVAX AGE 65 AND OVER WITH 5YR LOOKBACK (#1) [facility] Start: 1994 SHINGRIX VACCINE (1 of 2) SHINGRIX VACCINE (1 of 2) [facility] Start: 10-18-1963 HEPATITIS A (1 of 2 - Risk 2-dose series) HEPATITIS A (1 of 2 - Risk 2-dose series) [facility] Start: 10-18-1963 Hepatitis A Vaccine (1 of 2 - Risk 2-dose series) Hepatitis A Vaccine (1 of 2 - Risk 2-dose series) [facility] Start: 10-18-1963 SHINGRIX VACCINE (1 of 2) SHINGRIX VACCINE (1 of 2) [facility] Start: 10-18-1963 Urine microalbumin profile [facility] Start: 1962 ANNUAL PCP TEAM CUSTOMER LEADER MATTHEW DISEASE VISIT ANNUAL PCP TEAM CHRONIC DISEASE VISIT [facility] Start: 1956 Adult depression screening assessment DEPRESSION SCREENING [facility] Start: 1954 3 comp foot exam completed DIABETIC FOOT EXAM [facility] Start: 1954 Glaucoma screening Diabetes: R etinopathy Screening [facility] Start: 1954 Hepatitis C antibody , confirmatory test DILATED RETINAL EXAM [facility] Start: 1950 Pneumococcal Vaccine : 65+ (1 - PCV) Pneumococcal Vaccine: 65+ (1 - PCV) [facility] Start: 1950 PNEUMOCOCCAL: 65+ (1 - PCV) PNEUMOCOCCAL: 65+ (1 - PCV) [facility] Start: 1945 HEPATITIS A (1 of 2 - Risk 2-dose series) HEPATITIS A (1 of 2 - Risk 2-dose series) [facility] URINALYSIS, REFLEX MICROSCOPIC URINALYSIS, REFLEX MICROSCOPIC Lab Routine Screening for genitourinary condition Ordered: 10/06/2021 [facility] Work Phone: Comment on above: Ordered: 10/06/2021 URINALYSIS, REFLEX MICROSCOPIC URINALYSIS, REFLEX MICROSCOPIC Lab Routine Screening for genitourinary condition Ordered: 04/02/2022 [facility] Work Phone: Comment on above: Ordered: 04/02/2022 End: 11-17-2022 US LEG ARTERIAL PERIPH UNL VAS LAB US LEG ARTERIAL PERIPH UNL VAS LAB Vascular Lab Routine PAD (peripheral artery disease) (HCC) Nonhealing ulcer of heel (HCC) 1 Occurrences starting 11/17/2021 until 11/17/2022 [facility] Work Phone: Comment on above: 1 Occurrences starti ng 11/17/2021 until 11/17/2022 End: 11-17-2022 US LEG VEIN DVT UNL VAS LAB US LEG VEIN DVT UNL VAS LAB Vascular Lab Routine Acute deep vein thrombosis (DVT) of proximal end of right lower extremity (HCC) 1 Occurrences starting 11/17/2021 until 11/17/2022 [facility] Work Phone: Comment on above: 1 Occurrences starti ng 11/17/2021 until 11/17/2022 [facility] & VAS [facility] & VAS [facility] Immunizations Immunization Date Immunization Notes Care Provider Fa cili 12-11-2021 COVID-19 booster vaccine, age 12+ yr, bivalent (PFIZER-BIONTECH) Paresh Fonseca MD Work Phone: [facility] 12-11-2021 influenza, high-dose , quadrivalent vaccine (FLUZONE HIGH DOSE QUADRIVALENT) Paresh Fonseca MD Work Phone: [facility] 12-11-2021 influenza virus vaccine, unspecified formulation [facility] 10-24-2021 influenza, high dose seasonal, preservative-free Ni Petznick DO Work Phone: [facility] 01-19-2019 influenza, high dose seasonal, preservative-free Ni Petznick DO Work Phone: [facility] 11-25-2017 Seasonal trivalent influenza vaccine, adjuvanted, preservative free Ni Petznick DO Work Phone: [facility] 11-05-2016 influenza, high dose seasonal, preservative-free Ni Petznick DO Work Phone: [facility] 07-30-2014 pneumococcal polysaccharide vaccine, 23 valent Ni Petznick DO Work Phone: [facility] 03-09-2011 influenza virus vaccine, unspecified formulation Van Olivarez APRN.CRAPS MANAGER Work Phone: [facility] 12-17-2007 influenza virus vaccine, unspecified formulation Van Olivarez APRN.CRAPS MANAGER Work Phone: [facility] Work Phone: 02-11-2006 influenza virus vaccine, unspecified formulation Van Olivarez [employer].CRAPS MANAGER Work Phone: [facility] Work Phone: 12-07-2003 influenza virus vaccine, unspecified formulation Van Olivarez [employer].CRAPS MANAGER Work Phone: [facility] Work Phone: 12-07-2003 pneumococcal polysaccharide vaccine, 23 valent Van Olivarez SUPERINT[employer]ENT [employer].[facility] Work Phone: [facility] Work Phone: NEGATED: Highlighted row has not occurred!12-10-2021 COVID-19 booster vaccine, age 12+ yr, bivalent ([employer]) Paresh Fonseca MD Work Phone: [facility] NEGATED: Highlighted row has not occurred!12-10-2021 influenza, high-dose, quadrivalent vaccine (FLUZONE HIGH DOSE QUADRIVALENT) Parehs Fonseca MD Work Phone: [facility] Payers Date Payer Category Payer Medicare MEDICARE MEDICAR E A AND B [id number] 2009-Present [phone] [address] [address] [place] [address] Medicare [id number] 2009 Medicare [id number] 2009 Unknown [employer] [place] MEDICARE SUPPLEMENT [id number] 2009-Present [phone] [employer] [place] [address] Indemnity [id number] 2009 Unknown [id number] 1.13.159.2.7.3 .[id number] 2009 Unknown [id number] 2.16.8 [id number] 2009 Unknown [id number] 1959 Medicare [id number] 1959 Self-pay 1944 Unknown [id number] 2.16.840.1.025293.3.579.2.732 1944 Unknown [id number] 2.16.840.1.598834.3.579.2.593 1944 Unknown [id number] 2.16.840.1.274587.3.579.2.593 1944 Unknown [id number] 2.16.840.1.712292.3.579.2.593 1944 Unknown [id number] 2.16.840.1.998566.3.579.2.593 1944 Unknown [id number] 2.16.840.1.369235.3.579.2.593 1944 Unknown [id number] 2.16.840.1.267493.3.579.2.593 1944 Unknown [id number] 2.16.840.1.989684.3.579.2.593 1944 Unknown [id number] 2.16.840.1.319905.3.579.2.593 1944 Unknown [id number] 2.16.840.1.406484.3.579.2.593 1944 Unknown [id number] 2.16.840.1.925480.3.579.2.593 1944 Unknown [id number] 2.16.840.1.273208.3.579.2.593 1944 Unknown [id number] 2.16.840.1.906312.3.579.2.593 1944 Unknown [id number] 2.16.840.1.257502.3.579.2.593 1944 Unknown [id number] 2.16.840.1.900463.3.579.2.593 1944 Unknown [id number] 2.16.840.1.008270.3.579.2.593 1944 Unknown [id number] 2.16.840.1.885998.3.579.2.593 1944 Unknown [id number] 2.16.840.1.745381.3.579.2.593 1944 Unknown [id number] 2.16.840.1.399037.3.579.2.593 1944 Unknown [id number] 2.16.840.1.314503.3.579.2.593 1944 Unknown [id number] 2.16.840.1.411426.3.579.2.593 1944 Unknown [id number] 2.16.840.1.369013.3.579.2.593 1944 Unknown [id number] 2.16.840.1.061175.3.579.2.593 1945 Unknown [id number] 2.16840.1.016032.3.579.2.593 1945 Unknown [id number] 2.16.840.1.464744.3.579.2.593 1945 Unknown [id number] 2.16.840.1.140993.3.579.2.593 1945 Unknown [id number] 2.16.840.1.660510.3.579.2.593 1945 Unknown [id number] 2.16.840.1.411552.3.579.2.593 1944 Unknown [id number] 2.16.840.1.657140.3.579.2.593 1944 Unknown [id number] 2.16.840.1.110996.3.579.2.593 1944 Unknown [id number] 2.16.840.1.046456.3.579.2.593 1945 Unknown [id number] 2.16.840.1.603767.3.579.2.593 1944 Unknown [id number] 2.16.840.1.518711.3.579.2.593 1944 Unknown [id number] 2.16.840.1.289388.3.579.2.593 1944 Unknown [id number] 2.16.840.1.494855.3.579.2.593 1944 Unknown [id number] 2.16.840.1.616561.3.579.2.593 1944 Unknown [id number] 2.16.840.1.528488.3.579.2.593 1944 Unknown [id number] 2.16.840.1.330162.3.579.2.593 1944 Unknown [id number] 2.16.840.1.037487.3.579.2.593 1944 Unknown [id number] 2.16.840.1.410898.3.579.2.593 1944 Unknown [id number] 2.16.840.1.415461.3.579.2.593 1944 Unknown [id number] 2.16.840.1.876873.3.579.2.593 1944 Unknown [id number] 2.16.840.1.747127.3.579.2.593 1944 Unknown [id number] 2.16.840.1.439047.3.579.2.593 1944 Unknown [id number] 2.16.840.1.522939.3.579.2.593 1944 Unknown [id number] 2.16.840.1.492651.3.579.2.593 1945 Unknown [id number] 2.16.840.1.896425.3.579.2.593 1945 Unknown [id number] 2.16.840.1.894715.3.579.2.125 9 Medicare Medicare Outpatient [id number] 2T [id number] Unknown [id number] 2.16.840.1.102186.3.579.2.593 Unknown [id number] 2.16.840.1.155770.3.579.2.593 Unknown [id number] 2.16.840.1.510268.3.579.2.531 Social History Date Type Detail Facility Start: 03-09-2011 End: 07-07-2022 Tobacco smoking status NHIS Ex-smoker [facility] Work Phone: End: 02-15-1975 History of tobacco use Current smoker [facility] Work Phone: End: 02-15-1975 History of tobacco use Cigarette Smoker [facility] Work Phone: Start: 04-08-2021 End: 02-26-2022 Alcohol intake Current drinker of alcohol (finding) [facility] Start: 1945 Sex Assigned At Not on file C [facility] Start: 03-09-2011 End: 10-20-2022 Cigarettes smoked current (pack per day) - Reported 1 [facility] Work Phone: Start: 03-09-2011 End: 02-26-2022 Tobacco use and exposure Smokeless tobacco non-user [facility] Start: 09-25-2021 History SDOH Financial 5 [facility] Start: 09-25-2021 History SDOH Food Worry 1 [facility] Start: 09-25-2021 History SDOH Transpo rt Med 2 [facility] Start: 09-14-2021 End: 01-12-2022 Exposure to SARS-CoV-2 (event) Not sure [facility] Start: 02-26-2022 End: 10-20-2022 Sex Assigned At [facility] Work Phone: Start: 1945 Sex Assigned At Male F [facility] How hard is it for y ou to pay for the very basics like food, housing, medical care, and heating Not hard at all [facility] Work Phone: (I/We) worried wheth er (my/our) food would run out before (I/we) got money to buy more. Never true [facility] Work Phone: In the past 12 month s, was there a time when you were not able to pay the mortgage or rent on time? No [facility] Work Phone: Start: 03-18-2023 Alcohol intake Ex-drinker (finding) [facility] How often to you hav e a drink containing alcohol? Never [facility] Medical Equipment Procedure Code Equipment Code Equipment Original Text Equipment Identifier Dates Tray Powerline S urecuff 5fr Polyurethane Catheter 1 Lumen Microintroducer - [id number] Start: 12-06-2021 Clinical Notes 06-05-2021 to 04-11-2023 Note Date & Type Note Facility 04-11-2023 Evaluation note Encounter Date Diagnosis Assessment Notes Mar, ASHD (arterioscleroti c heart disease) (ICD-10 - I25.10) This patient is stable without activity related CP, dyspnea or lightheadedness. They are instructed to continue exercise and AHA diet plan. Continue secondary prevention measures. Mar, Primary hypertension (ICD-10 - I10) This patient is instructed to consume a healthy, low-fat, low-salt diet. They are also encouraged to continue exercise to achieve/maintain a normal BMI. Mar, Type 1 diabetes mellitus with hyperglycemia (ICD-10 [...] office visit. Continue regular routine monitoring of A1C, Microalbumin, Dilated eye exam and Foot exam Mar, Elevated cholesterol (ICD-10 - E78.00) Instructed on diet and exercise with continued statin therapy.Discussed the beneficial effects of lowering cholesterol in reducing the risk for cerebrovascular and cardiovascular disease. 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) During the appointment today all pertinent labs, imaging, health maintenance, and glucose readings were reviewed. Encouraged to check blood glucose throughout the day with some fasting and some PP readings. They are to bring their glucose meter/cgm in to all appointments. All of the patients questions, treatment options, and current care plan and goals were discussed. Acopy of this along with pertinent instructions were [...] Hypoglycemia management and Insulin instructions. Decrease lantus anddecrease humalog at breakfast and lunch to help prevent low bg. * Ni Cabrera DO - 03/18/2023 1:45 PM EST Images from the original note [...] been checking his blood glucose with a [employer] shaan 14 CGM - READER- on a daily basis. Heis dipping some overnight as well as after breakfast and lunch. Rising after hypoglycemia. Last A1c: 8.8 on 10/20/2022 Last eye exam: over due Current concerns include: Shaan reader was reading 46 and finger stick read 46. BG increased to 59 mg/dl and rising on cgm prior to him leaving the office. He is being transported by a driver/refuse collector. 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) During the appointment today all pertinent labs, imaging, health maintenance, and glucose readings were reviewed. Encouraged to check blood glucose throughout the day with some fasting and some PP readings. They are to bring their glucose meter/cgm in to all appointments. All of the patients questions, treatment options, and current care plan and goals were discussed. Acopy of this along with pertinent instructions were [...] Hypoglycemia management and Insulin instructions. Decrease lantus anddecrease humalog at breakfast and lunch to help prevent low bg. 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) Follow up in about 3 months (around 06/16/2023) for Recheck. Patient's Medications New Prescriptions No medications on file Previous Medications ACETAMINOPHEN (TYLENOL) 500 MG TABLET Take 1,000 mg by mouth every 6 (six) hours if needed for mildpain. ASPIRIN 81 MG EC TABLET Take 81 [...] mouth in the morning. documented in this encounterUniversity [facility] Medical [id number] Evaluation note* Encounter Date Diagnosis Assessment Notes Treatment Notes Treatment Clinical Notes Dec, ASHD (arteriosclerotic heart disease) (ICD-10 - I25.10) [...] are maintaining regular scheduled appts with their lapel padder. No bleeding complications Dec, Hyperlipidemia LDL goal [...] fluid balance and to avoid dehydration. 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 This patient is anticoagulated to prevent thromboembolic events. They are maintaining regular scheduled appts with their lapel padder. 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 No bleeding complications Oct, Type 1 diabetes [...] - Z94.0) Continue routine surveillance labs. Oct, FPC (current) use of insulin (ICD-10 - Z79.4) [employer] Other 09-01-2023 Miscellaneous Notes* Telephone Encounter - Mary Martinez - 10/16/2022 1:08 PM EDT Pharmacy comment: REQUEST FOR 90 DAYS PRESCRIPTION. DX Code Needed. 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 No bleeding complications Sep, Type 1 diabetes [...] risk for cerebrovascular and cardiovascular disease. 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 Please review and advise. Ariadna Mcdowell, documented in this encounterAsht[facility]ula [facility]07-27-[facility] Evaluation note* Encounter Date Diagnosis Assessment Notes Treatment Notes Treatment Clinical Notes Aug, Longstanding persistent atrial fibrillation (ICD-10 - I48.11) This patient is in NSR or rate controlled. This patient is anticoagulated to prevent thromboembolic events. They are maintaining regular scheduled appts with their lapel padder. No s/s bleeding Aug, Type 1 diabetes [...] risk for cerebrovascular and cardiovascular disease. 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 Lightheaded in the office today, as BP is very low. He denies chest pain, SOB, palpitations, and bleeding on warfarin. Had routine labs last week. Review of Systems Musculoskeletal: Positive for arthritis, joint pain and myalgias. Neurological: Positive for light-headedness. All other systems reviewed and are negative.[facility] 09-09-2022 NoteUT Electrophysiology Consult Note Reason for [...] at about 50-60 systolic. patient with friend/ driver/refuse collector from facility, we will take patient to [...] of the right coronary artery with robust [id number] collaterals. 5. Normal global left ventricular systolic [...] Follow up with Dr. Galvez in the [facility] in the next 2 weeks; he may follow up with Dr. Orosco as needed for interventional issues. 5. Follow up with Dr. Devon Moreira as scheduled. PMH: Past Medical History: Diagnosis Date Abnormal ECG Arrhythmia Atrial fibrillation (CMS/HCC) Chronic kidney disease Coronary artery disease Diabetes mellitus (CMS/HCC) (more content not included)...[facility]06-22-2023 Evaluation note* Encounter Date Diagnosis Assessment Notes [...] are maintaining regular scheduled appts with their lapel padder. No bleeding complications Jul, Type 1 diabetes [...] risk for cerebrovascular and cardiovascular disease. Jul, FPC (current) use of insulin (ICD-10 - Z79.4) Jul, Kidney transplant status (ICD-10 - Z94.0) Monthly labs, ongoing surveillance from transplant clinic [employer] Other 05-15-2023 Progress note Author Sadia Aguilar [facility] June 29, 2022 2:47pm Note Date/Time June 29, 2022 2:46p m [facility] [address] [place] [address] Wound Center Provider Note Signed Patient: Alex Almonte MR#: [id number] : 1945 Acct:[id number] Age/Sex: 76 / M Copies to: DO Sadia Whyte APRN~ HPI Date of Visit Date of Visit: Date of Service: 06/29/2022 Time of Service: 14:45 Narrative HPI: 12/30/21 Alex is a 76 year old male presenting to [facility] wound care for aninitial visit for eval and treatment of a sacral/coccyx area pressure ulcer. He resides at [facility]. There is an BOILER TUBE REAMER present for the visit. Medicalhoney gel will [...] his brief that was cleaned by this property underwriter as well as another nursing staff [...] from initial visit here Mode of Arrival/ Advertising Agent: Facility vehicle Assistive Device Used Today: Wheelchair and Indra Lives with:: Care/Nursing Facility Appetite Description: Within Normal Limits Who helps w/ dressing change?: Nursing Facility Why Do You Need Help?: Can't Reach Ulcer, Limited mobility and Taxing effort to leave home Smoking Status: Former smoker [facility] Medical History (Updated 03/03/22 @ [...] Ulcer/Injury Staging: Unstageable Bed Appearance: Beefy Red, [place], Yellow and Rolled Edges Percent of Wound [...] By: <Electronically signed by DAVID Aguilar> 06/29/22 [address] [facility] Work Phone: 1(834) 555-617805-11-2023 Evaluation note* Encounter Date Diagnosis Assessment Notes [...] are maintaining regular scheduled appts with their lapel padder. No bleeding complications June, Hyperlipidemia LDL goal <100 (ICD-10 - E78.5) Instructed on diet and exercise with continued statin therapy.Discussed the beneficial effects of lowering cholesterol in reducing the risk for cerebrovascular and cardiovascular disease. June, FPC (current) use of insulin (ICD-10 - Z79.4) June, Kidney transplant status (ICD-10 - Z94.0) No s/s rejection [employer] Other 04-24-2023 Progress note Author Sadia Aguilar [facility] June 08, 2022 2:10pm Note Date/Time June 08, 2022 2:1 0pm [facility] [address] [place] [address] Wound Center Provider Note Signed Patient: Alex Almonte MR#: [id number] : 1945 Acct:[id number] Age/Sex: 76 / M Copies to: DO Sadia Whyte APRN~ HPI Date of Visit Date of Visit: Date of Service: 06/08/2022 Time of Service: 14:07 Narrative HPI: 12/30/21 Alex is a 76 year old male presenting to [facility] wound care for aninitial visit for eval and treatment of a sacral/coccyx area pressure ulcer. He resides at [facility]. There is an BOILER TUBE REAMER present for the visit. Medicalhoney gel will [...] his brief that was cleaned by this property underwriter as well as another nursing staff [...] from initial visit here Mode of Arrival/ Advertising Agent: Facility vehicle Assistive Device Used Today: Wheelchair and Indra Lives with:: Care/Nursing Facility Appetite Description: Within Normal Limits Who helps w/ dressing change?: Nursing Facility Why Do You Need Help?: Can't Reach Ulcer, Limited mobility and Taxing effort to leave home Smoking Status: Former smoker [facility] Medical History (Updated 03/03/22 @ [...] Ulcer/Injury Staging: Unstageable Bed Appearance: Beefy Red, [place], Yellow and Rolled Edges Percent of Wound [...] by DAVID Aguilar> 06/08/22 [address] [facility] Work Phone: 1(319) 768-570204-21-2023 Evaluation note* Encounter Date Diagnosis Assessment Notes [...] are maintaining regular scheduled appts with their lapel padder. May, FPC (current) use of insulin (ICD-10 - Z79.4) May, Kidney transplant status (ICD-10 - Z94.0) routine labs per clinic. 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 No open ulcerations present Pain controlled [employer] Other 03-27-2023 Progress note Author Sadia Aguilar [facility] May 11, 2022 1:41pm Note Date/Time May 11, 2022 1:4 0pm [facility] [address] [place] [address] Wound Center Provider Note Signed Patient: Alex Almonte MR#: [id number] : 1945 Acct:[id number] Age/Sex: 76 / M Copies to: DO Sadia Whyte APRN~ HPI Date of Visit Date of Visit: Date of Service: 05/11/2022 Time of Service: 13:38 Narrative HPI: 12/30/21 Alex is a 76 year old male presenting to [facility] wound care for aninitial visit for eval and treatment of a sacral/coccyx area pressure ulcer. He resides at [facility]. There is an BOILER TUBE REAMER present for the visit. Medicalhoney gel will [...] his brief that was cleaned by this property underwriter as well as another nursing staff [...] from initial visit here Mode of Arrival/ Advertising Agent: Facility vehicle Assistive Device Used Today: Wheelchair and Indra Lives with:: Care/Nursing Facility Appetite Description: Within Normal Limits Who helps w/ dressing change?: Nursing Facility Why Do You Need Help?: Can't Reach Ulcer, Limited mobility and Taxing effort to leave home Smoking Status: Former smoker [facility] Medical History (Updated 03/03/22 @ [...] Ulcer/Injury Staging: Unstageable Bed Appearance: Beefy Red, [place] and Yellow Percent of Wound Bed Granulated/Red: [...] <Electronically signed by DAVID Aguilar> 05/11/22 [address] [facility] Work Phone: 1(649) 678-849403-23-2023 Evaluation note* Encounter Date Diagnosis Assessment Notes [...] are maintaining regular scheduled appts with their lapel padder. 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 Author Type: Physician Type: Progress Notes Filed: 04/24/2022 10:32 AM Note Text: Encounter opened in error, patient not seen.[facility]02-28-2023 Progress note Author Sadia Aguilar [facility] April 14, 2022 2:19pm Note Date/Time April 14, 2022 2:18pm [facility] [address] [place] [address] Wound Center Provider Note Signed Patient: Alex Almonte MR#: [id number] : 1945 Acct:[id number] Age/Sex: 76 / M Copies to: DO Sadia Whyte APRN~ HPI Date of Visit Date of Visit: Date of Service: 04/14/2022 Time of Service: 14:18 Narrative HPI: 12/30/21 Alex is a 76 year old male presenting to [facility] wound care for aninitial visit for eval and treatment of a sacral/coccyx area pressure ulcer. He resides at [facility]. There is an BOILER TUBE REAMER present for the visit. Medicalhoney gel will [...] his brief that was cleaned by this property underwriter as well as another nursing staff [...] from initial visit here Mode of Arrival/ Advertising Agent: Facility vehicle Assistive Device Used Today: Wheelchair and Indra Lives with:: Care/Nursing Facility Appetite Description: Within Normal Limits Who helps w/ dressing change?: Nursing Facility Why Do You Need Help?: Can't Reach Ulcer, Limited mobility and Taxing effort to leave home Smoking Status: Former smoker [facility] Medical History (Updated 03/03/22 @ [...] Ulcer/Injury Staging: Unstageable Bed Appearance: Beefy Red, [place] and Yellow Percent of Wound Bed Granulated/Red: [...] <Electronically signed by DAVID Aguilar> 04/14/22 [address] [facility] Work Phone: 1(382) 743-778502-16-2023 NotePatient Outreach (KIMBERLY) ALEX ALMONTE ([id number]) 1945 M TRN Date Time Provider Department 04/02/22 VAN OLIVAREZ During your visit today, we recorded the following information about you: Allergies As of Date: 04/02/2022 Noted Allergy Reaction PYRIDOSTIGMINE BROMIDE 08/04/2021 8 - GI Upset Date Reviewed: 02/26/2022 Reviewed by: Braden Abel MA - Fully Assessed Visit Diagnosis:Screening for genitourinary condition [Z13.89] Order(s):URINALYSIS, REFLEX MICROSCOPIC [[id number]] Order #: [id number] Prescriptions as of 04/06/2022 - tacrolimus IR [...] by mouth daily with lunch. 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) [N17.9] 01/04/2015 Diabetes mellitus (HCC) [E11.9] 01/04/2015 Cellulitis [L03.90] 01/04/2015 Diarrhea [R19.7] 01/04/2015 VTE (venous thromboembolism) [I82.90] 09/24/2021 CAD (coronary artery disease) [I25.10] 2016 Paroxysmal atrial fibrillation (HCC) [I48.0] HTN (hypertension) [I10] SA node dysfunction (HCC) [I49.5] Altered tissue perfusion [R09.89] 09/30/2021 PAD (peripheral artery disease) ([facility]) [I73.9] 09/26/2021 Osteomyelitis (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) [E44.0] 12/01/2021 Dermatitis associated with moisture [L30.8] 12/04/2021 Encounter Status:Closed by CONCETTA HOBBS on 04/06/22[facility] 03-30-2022 Miscellaneous Notes* Telephone Encounter [...] to pharmacy. Katina Duque documented in this encounterAs[facility]02-07-2023 Progress note Author Sadia Aguilar [facility] March 24, 2022 3:00pm Note Date/Time March 24, 2022 2 :59pm [facility] [address] [place] [address] Wound Center Provider Note Signed Patient: Alex Almonte MR#: [id number] : 1945 Acct:[id number] Age/Sex: 76 / M Copies to: DO Sadia Whyte APRN~ HPI Date of Visit Date of Visit: Date of Service: 03/24/2022 Time of Service: 14:58 Narrative HPI: 12/30/21 Alex is a 76 year old male presenting to [facility] wound care for aninitial visit for eval and treatment of a sacral/coccyx area pressure ulcer. He resides at [facility]. There is an BOILER TUBE REAMER present for the visit. Medicalhoney gel will [...] his brief that was cleaned by this property underwriter as well as another nursing staff [...] from initial visit here Mode of Arrival/ Advertising Agent: Facility vehicle Assistive Device Used Today: Wheelchair and Indra Lives with:: Care/Nursing Facility Appetite Description: Within Normal Limits Who helps w/ dressing change?: Nursing Facility Why Do You Need Help?: Can't Reach Ulcer, Limited mobility and Taxing effort to leave home Smoking Status: Former smoker [facility] Medical History (Updated 03/03/22 @ [...] Ulcer/Injury Staging: Unstageable Bed Appearance: Beefy Red, [place] and Yellow Percent of Wound Bed Granulated/Red: [...] <Electronically signed by DAVID Aguilar> 03/24/22 [address] [facility] Work Phone: 1(515) 313-831301-17-2023 Progress note Author Sadia Aguilar [facility] March 03, 2022 2:41pm Note Date/Time March 03, 2022 2 :41pm [facility] [address] [place] [address] Wound Center Provider Note Signed Patient: Alex Almonte MR#: [id number] : 1945 Acct:[id number] Age/Sex: 76 / M Copies to: DO Sadia Whyte APRN~ HPI Date of Visit Date of Visit: Date of Service: 03/03/2022 Time of Service: 14:38 Narrative HPI: 12/30/21 Alex is a 76 year old male presenting to [facility] wound care for aninitial visit for eval and treatment of a sacral/coccyx area pressure ulcer. He resides at [facility]. There is an BOILER TUBE REAMER present for the visit. Medicalhoney gel will [...] his brief that was cleaned by this property underwriter as well as another nursing staff [...] from initial visit here Mode of Arrival/ Advertising Agent: Facility vehicle Assistive Device Used Today: Wheelchair and Indra Lives with:: Care/Nursing Facility Appetite Description: Within Normal Limits Who helps w/ dressing change?: Nursing Facility Why Do You Need Help?: Can't Reach Ulcer, Limited mobility and Taxing effort to leave home Smoking Status: Former smoker [facility] Medical History (Updated 03/03/22 @ [...] Ulcer Pressure Ulcer/Injury Staging: Unstageable Bed Appearance: [place] and Yellow Percent of Wound Bed Granulated/Red: 90 Percent of Devitalized: 10 Length (cm): 2.2 Width (cm): 1.8 Depth (cm): 1.9 CM Sq: 3.960 Surrounding Tissue Appearance: [place], Hyperpigmented and Satellite lesions Surrounding Tissue Temp: [...] by DAVID Aguilar> 03/03/22 1441 [facility] Work Phone: 1(133) 667-260301-13-2023 Miscellaneous Notes* Telephone Encounter - RAUL Davidson - 02/27/2022 10:24 AM EST Patient phones requesting refills as follows: Per pts sister takes 1 mg in AM and 1 mg in PM Requested Prescriptions Pending Prescriptions Disp Refills tacrolimus IR (PROGRAF) 1 mg capsule Sig: Take 2 capsules by mouth DAILY (6 AM). Please review and advise. RAUL Davidson documented in this encounterAshtabula County Medical Center01-12-2023 NoteHNO ID: [id number] Author: Hina Peterson MD Service: ? Author Type: Physician Type: Progress Notes Filed: 02/26/2022 4:31 PM Note Text: Heart , V[facility] [place] DEPARTMENT OF VASCULAR SURGERY OUTPATIENT VISIT DATE [...] his postop visit. He has been in group home since then and has been recovering from his acute on chronic congestive heart failure. His wound has largely been healing without any issues and the maxwell and sutures were removed at the nursing facility. He comes here with a lateral wound eschar. He denies any fevers, chills, or any drainage. He is on anticoagulation. 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) 02/24/2002 PAST SURGICAL HISTORY Procedure [...] Wednesday, and Wednesday. insulin glargine (LANTUS SOLOSTAR, PEREZAGLBINH LANDRUM) 100 unit/mL (3 mL) Inject 17 Units [...] by mouth daily with lunch. Magic Cup [place] with lunch aspirin, enteric coated (ASPIRIN, ENTERIC COATED) 81 mg EC tablet Take 1 tablet by mouth once daily. predniSONE (DELTASONE) 5 mg tablet TAKE 1 TABLET BY MOUTH EVERY DAY oxyCODONE IR (ROXICODONE) 5 mg immediate release tablet 1-2 tablets by ORAL/FEEDING TUBE route every 3 hours as needed. Food Supplement, Lactose-Free (ENSURE MAX (more content not included)... [facility]01-12-2023 History of Present illness Narrative* Hina Peterson MD - 02/26/2022 4:25 PM EST Images from the original note were not included. Heart [facility] [place] DEPARTMENT OF VASCULAR SURGERY OUTPATIENT VISIT DATE [...] his postop visit. He has been in group home since then and has been recovering from his acute on chronic congestive heart failure. His wound has largely been healing without any issues and the maxwell and sutures were removed at the [facility] facility. He comes here with a lateral wound eschar. He denies any fevers, chills, or any drainage. He is on anticoagulation. 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) 11/29/2021 BPH (benign prostatic hyperplasia) CAD (coronary artery disease) 2016 s/p PCI 2016 and CABG 2019 Diabetes mellitus ([facility]) Diabetic neuropathy ([facility]) Diabetic retinopathy ([facility]) HTN (hypertension) Hyperlipidemia Impaired vision in both eyes KIDNEY TRANSPLANT STATUS 09/07/2003 ESRD s/p renal transplant in 2001 on chronic immunosuppression . Patient on mycophenolate mofetil ,cellcept and prednisone Mixed hyperlipidemia due to type 2 diabetes mellitus ([facility]) 11/29/2021 Osteomyelitis ([facility]) 11/29/2021 Paroxysmal atrial fibrillation ([facility]) Renal transplant, status post SA node dysfunction ([facility]) s/p pacemaker Type 2 diabetes mellitus with diabetic neuropathy, with long-term current use of insulin ([facility]) 02/24/2002 PAST SURGICAL HISTORY Procedure [...] Wednesday, and Wednesday. insulin glargine (LANTUS SOLOSTAR, BASAGLBINH JAVEDIKPEN) 100 unit/mL (3 mL) Inject 17 Units [...] by mouth daily with lunch. Magic Cup [place] with lunch aspirin, enteric coated (ASPIRIN, ENTERIC [...] 2022 TIME: 4:26 PM documented in this encounterAshtabula County Medical Center01-05-2023 Miscellaneous Notes* Telephone Encounter - [...] Home and cell number(Ask for Alex's nurse) [phone] Diagnosis 4 mo f/u wound check Yumiko Mcclain documented in this encounterAshtabula County Medical Center01-05-2023 Miscellaneous Notes* Telephone Encounter - Augusta Medrano RN - 02/19/2022 11:11 AM EST Alex Almonte's nursing facility, [facility], called regarding elevated tacrolimus level (23.9). Spoke with bedside nurse, Zoe, today. Level is from last week- unable to clearly determine if medications were held prior to lab work. Reviewed with nurse morning labs should occur prior to lab draws. Patient is scheduled for repeat labs tomorrow. Will assess new level. Augusta Medrano RN documented in this encounterAshtabula County Medical Center01-04-2023 Miscellaneous Notes* Telephone Encounter - Martina oRssi MD - 02/18/2022 10:35 AM EST Inappropriate [...] advise. Mercedez Tavares MA documented in this encounterAshtabula County Medical Center12-27-2022 Progress note Author Sadia Aguilar [facility] February 10, 2022 3:47pm Note Date/Time February 10, 2022 3:47pm [facility] [address] [place] [address] Wound Center Provider Note Signed Patient: Alex Almonte MR#: [id number] : 1945 Acct:[id number] Age/Sex: 76 / M Copies to: DO Sadia Whyte, DAVID~ HPI Date of Visit Date of Visit: Date of Service: 02/10/2022 Time of Service: 15:44 Narrative HPI: 12/30/21 Alex is a 76 year old male presenting to [facility] wound care for aninitial visit for eval and treatment of a sacral/coccyx area pressure ulcer. He resides at [facility]. There is an BOILER TUBE REAMER present for the visit. Medicalhoney gel will [...] his brief that was cleaned by this property underwriter as well as another nursing staff member, few weeks to follow up Subjective Pain Coccyx: Pain Description: Intermittent Pain Intensity: 0 Wound/Ulcer History When did wound start?: 4 weeks ago- from initial visit here Mode of Arrival/ Advertising Agent: Facility vehicle Assistive Device Used Today: Wheelchair and Indra Lives with:: Care/Nursing Facility Appetite Description: Within Normal Limits Who helps w/ dressing change?: Nursing Facility Why Do You Need Help?: Can't Reach Ulcer, Limited mobility and Taxing effort to leave home Smoking Status: Former smoker [facility] Medical History (Updated 01/20/22 @ [...] Ulcer Pressure Ulcer/Injury Staging: Unstageable Bed Appearance: [place] and Yellow Percent of Wound Bed Granulated/Red: 90 Percent of Devitalized: 10 Length (cm): 2.5 Width (cm): 2.3 Depth (cm): 2.1 CM Sq: 5.750 Surrounding Tissue Appearance: [place], Hyperpigmented and Satellite lesions Surrounding Tissue Temp: [...] 20 Dictated By: Sadia Aguilar APRN DD/ 1544 Signed By: <Electronically signed by DAVID Aguilar> 02/10/22 1547 [facility] Work Phone: 1(482) 584-121012-22-2022 NoteHNO ID: [id number] Author: Asai Pike MD Service: ? Author Type: Physician Type: Progress Notes Filed: 02/05/2022 9:38 AM Note Text: [facility] Urologic and Kidney [place] Transplant Follow up Portions of this note [...] date with medications. Patient brought paperwork from [employer] with all medications being received. Patient unsure if they have been drawing labs regularly. Last Tac from 01/19: 12.9 and K 5.9. In need of current labs. Lab orders will be sent with patient and follows as below: Kidney and Pancreas Transplant Standing Lab Orders [address] [place], [place] [address] February 05, 2022 Alex Almonte 1945 [id number] STANDARD TESTING: Diagnosis Codes: Z94.0 Kidney Transplant [...] AT YOUR LABORATORY FACILITY AND FAX TO [phone]. PLEASE CALL [phone]. Provider: Dr. Pike Current Outpatient Medications Medication [...] by mouth daily with lunch. Magic Cup [place] with lunch aspirin, enteric coated (ASPIRIN, ENTERIC COATED) 81 mg EC tablet Take 1 tablet by mouth once daily. atorvastatin (LIPITOR) 40 mg tablet 1 tablet by ORAL/FEEDING TUBE route daily at bedtime. (more content not included)...[facility]12-22-2022 History of Present illness Narrative* Asia Pike MD - 02/05/2022 8:20 AM EST Images from the original note were not included. [facility] Urologic and Kidney [place] Transplant Follow up Portions of this note [...] date with medications. Patient brought paperwork from [employer] with all medications being received. Patient unsure if they have been drawing labs regularly. Last Tac from 01/19: 12.9 and K 5.9. In need of current labs. Lab orders will be sent with patient and follows as below: Kidney and Pancreas Transplant Standing Lab Orders [address] [facility] [address] [place], [place] [address] February 05, 2022 Alex Almonte 1945 [id number] STANDARD TESTING: Diagnosis Codes: Z94.0 Kidney Transplant [...] AT YOUR LABORATORY FACILITY AND FAX TO [phone]. PLEASE CALL [phone]. Provider: Dr. Pike Current Outpatient Medications Medication [...] by mouth daily with lunch. Magic Cup [place] with lunch aspirin, enteric coated (ASPIRIN, ENTERIC [...] All other system reviews negative. Augusta Medrano bond manager: February 05, 2022 9:34 AM I have [...] complexity. Asia Pike MD documented in this encounterAshtabula County Medical Center12-06-2022 Progress note Author Sadia Aguilar [facility] January 20, 2022 2:21pm Note Date/Time January 20, 2022 2 :21pm [facility] [address] [place] [address] Wound Center Provider Note Signed Patient: Alex Almonte MR#: [id number] : 1945 Acct:[id number] Age/Sex: 76 / M Copies to: Devon Moreira,DO Sadia Aguilar APRN~ HPI Date of Visit Date of Visit: Date of Service: 01/20/2022 Time of Service: 14:17 Narrative HPI: 12/30/21 Alex is a 76 year old male presenting to [facility] wound care for aninitial visit for eval and treatment of a sacral/coccyx area pressure ulcer. He resides at [facility]. There is an BOILER TUBE REAMER present for the visit. Medicalhoney gel will [...] from initial visit here Mode of Arrival/ Advertising Agent: Facility vehicle Assistive Device Used Today: Wheelchair and Indra Lives with:: Care/Nursing Facility Appetite Description: Within Normal Limits Who helps w/ dressing change?: Nursing Facility Why Do You Need Help?: Can't Reach Ulcer, Limited mobility and Taxing effort to leave home Smoking Status: Former smoker PMF Medical History (Updated 01/20/22 @ 14:21 by [...] Ulcer Pressure Ulcer/Injury Staging: Unstageable Bed Appearance: [place] and Yellow Percent of Wound Bed Granulated/Red: 40 Percent of Devitalized: 60 Length (cm): 5.2 Width (cm): 3.4 Depth (cm): 1.8 CM Sq: 17.680 Surrounding Tissue Appearance: [place] and Hyperpigmented Surrounding Tissue Temp: Warm Drainage [...] 20 Dictated By: Sadia Aguilar APRN DD/ 16 Signed By: <Electronically signed by DAVID Aguilar> 01/20/22 1421 [facility] Work Phone: 1(840) 250-286912-06-2022 Miscellaneous Notes* Telephone Encounter - Van Olivarez APRN.CNP - 01/20/2022 1:12 PM EST Labs noted from yesterday. Pt is currently residing at [facility], I spoke with the Nurse, the results has been addressed by Physician caring for pt. He had been placed on Chlor Con and this has been discontinued and hyperkalemia has been treated. Van Olivarez APRN.DIAMANTE documented in this encounterAshtabula County Medical Center11-28-2022 Surgical operation note* Brief Op Note - Misbah Landis PA-C - 01/12/2022 10:41 AM EST BRIEF OPERATIVE / PROCEDURE NOTE LOG ID: [id number] SURGERY/PROCEDURE DATE: 01/12/2022 INCISION/PROCEDURE START TIME: 10:32 AM INCISION CLOSE/PROCEDURE END TIME: 10:35 AM SURGEON(S)/PROCEDURALIST(S) AND TRUCK DRIVER SALESPERSON(S): Misbah Landis PA-C SURGERY/PROCEDURE(S): Removal tunneled vascular access catheter under local anesthesia ANESTHESIA: Procedural Sedation FINDINGS: Catheter removed intact ESTIMATED BLOOD LOSS: 0 ml SPECIMENS: None COMPLICATIONS: None PRE-OP/PRE-PROCEDURE DIAGNOSIS: Foot Ulcer POST-OP/POST-PROCEDURE DIAGNOSIS: Same as Preop SIGNATURE: Misbah Landis PA-C PATIENT NAME: Alex Almonte DATE: January 12, 2022 TIME: 10:42 AM documented in this encounterAshtabula County Medical Center11-22-2022 Nurse Note* Laxmi Archibald RN - 01/06/2022 1:55 PM EST Pre-procedure instructions: Contacted patient's sister, Munira Brothers and nurse at [facility], Jada ([phone]) andconfirmed appt. for Gerhard removal scheduled on 01/12/22, at [facility]. If instructions are not followed your [...] be signed. Arrival at 9:30am to desk B-1 ([facility]) and check in for your procedure. Theatrical Performer/Transportation: How will you be arriving for your procedure? Ambulance service. To be arranged by [facility]. If you develop any of the following symptoms before your procedure, please call [phone]. Chills, joint pain, rash, sore throat, cough, loss of smell, reddened eyes, vomiting, abdominal pains, diarrhea, loss of taste, severe headache, weakness, bruising or bleeding, fever, muscle pain, shortness of breath Recovery expectations: You can expect to be in recovery for 30 minutes following the procedure. Written instructions provided to patient via [employer] If you have any questions please call [phone] documented in this encounterAshtabula County Medical Center11-15-2022 Progress note Author Sadia Aguilar [facility] December 30, 2021 1:49pm Note Date/Time December 30, 2021 1:49pm [facility] [address] [place] [address] Wound Center Provider Note Signed Patient: Alex Almonte MR#: [id number] : 1945 Acct:[id number] Age/Sex: 76 / M Copies to: DO Sadia Whyte APRN~ HPI Date of Visit Date of Visit: Date of Service: 12/30/2021 Time of Service: 13:44 Narrative HPI: 12/30/21 Alex is a 76 year old male presenting to [facility] wound care for aninitial visit for eval and treatment of a sacral/coccyx area pressure ulcer. He resides at [facility]. There is an BOILER TUBE REAMER present for the visit. Medicalhoney gel will [...] start?: 4 weeks ago Mode of Arrival/ Advertising Agent: Facility vehicle Assistive Device Used Today: Wheelchair and Indra Lives with:: Care/Nursing Facility Appetite Description: Within Normal Limits Who helps w/ dressing change?: Nursing Facility Why Do You Need Help?: Can't Reach Ulcer, Limited mobility and Taxing effort to leave home Smoking Status: Former smoker [facility] Medical History (Updated 12/30/21 @ [...] 0.1 CM Sq: 38.500 Surrounding Tissue Appearance: [place] and Hyperpigmented Surrounding Tissue Temp: Warm Drainage [...] <Electronically signed by DAVID Aguilar> 12/30/21 134[address] [facility] Work Phone: 1(930) 593-964811-15-2022 History of Present illness Narrative* Paresh Fonseca MD - 12/30/2021 9:52 AM EST INFECTIOUS DISEASES OUTPATIENT FOLLOW-UP NOTE SERVICE DATE: 12/30/2021 Subjective INTERVAL HPI : This is a follow up visit for MRSA bacteremia. On vancomycin copat x4 weeks via right chest wall Gerhard catheter with stop date of December 27, 2021 . This visit was conducted as a virtual visit done by Amwell now through the help of Zoe who is oneof his caregivers at the rehab facility He is currently at [facility] in [facility] Seen on video together with Zoe -history [...] by mouth daily with lunch. Magic Cup [place] with lunch aspirin, enteric coated (ASPIRIN, ENTERIC [...] is a 76 year old male from [facility]. 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 History of PAD CAD status post CABG, diabetes, atrial fibrillatioN He originally presented [facility] for having altered mental status and right [...] 3. Status post right heel I&D at [facility] on 11/24/2021. MRSA, Enterobacter cloacae and [...] will need to coordinate with his SNF [phone] --our ID office will need to arrange for IR gerhard removal. Return to ID as needed 10 Minutes spent via virtual visit. SIGNATURE: Paresh Fonseca MD PATIENT NAME: Alex Almonte DATE: December 30, 2021 TIME: 9:52 AM documented in this encounterAshtabula County Medical Center11-01-2022 Miscellaneous Notes* Telephone Encounter - Sulma Pardo - 12/16/2021 3:13 PM EDT Pt director of physical therapy is requesting orders for Stomp ampushield to be taken off pressure relief because it is causing sores on the thigh. Thanks, Sulma Pardo Maid Cleaning Cooking documented in this encounterAshtabula County Medical Center10-31-2022 Miscellaneous Notes* Telephone Encounter - Gwen Alfredo Adm Asst I - 12/15/2021 4:11 PM EDT Rupa LYLES from [facility] [phone] called to report IV Vancomycin was started until today. Patient missed 3 days, should patient makeup missed doses? Please advise. Gwen Alfredo Adm Asst I documented in this encounterAshtabula County Medical Center10-21-2022 Instructions* Patient Instructions* Paresh Fonseca [...] serious illness Are taking any medications (prescription, kwip-mfu-lwivkzs, vitamins, or herbal products) How will I receive EVUSHELD? EVUSHELD consists of two investigational medicines, tixagevimab and cilgavimab. You will receive 1 dose of EVUSHELD, consisting of 2 separate injections (tixagevimab and cilgavimab). EVUSHELD will be given to you by your healthcare provider as 2 intramuscular injections, given one after the other. Viruses can foreign exchange student coordinator time (mutate) and develop into a slightly [...] certain SARS-CoV-2 variants: Viruses can foreign exchange student coordinator time (mutate) and develop into a slightly [...] treatment or prevention of COVID-19 go to https://www.fda.gov/atuqtwbad-cmqnjxjvzxrm-cno- response/map-aalzd-gsatenknli-fai-osrgou-ndoooyxjt/xdozbvphg-psp-kcxcrdnzikdxc for more information. It is your choice [...] to FDA MedWatch at www.fda.gov/medwatch or call 2-085-YIC-9169 or call [employer] . Additional Information If you have questions, visit the website or call the telephone number provided below. Website Telephone number http://[email or web address] How can I learn more about COVID-19? Ask your healthcare provider. Visit https://www.cdc.gov/COVID19 Contact your local or state public health department. What is an Emergency Use Authorization? The [place] FDA has made EVUSHELD (tixagevimab co-packaged with cilgavimab) available under an emergency access mechanism called an Emergency Use Authorization EUA. The EUA is supported by a Hydrodynamics Professor of Health and Human Service ([facility]) declaration that circumstances exist to justify the [...] monohydrate, polysorbate 80, sucrose, water. Distributed by: [employer], [place], [place] Manufactured for: [employer], [place], [place] [employer] 2021. All rightsreserved. documented in this encounterAshtabula County Medical Center10-21-2022 Miscellaneous Notes* Telephone Encounter - Paresh Fonseca MD - 12/05/2021 3:05 PM EDT Evusheld (tixagevimab/cilgavimab) Eligibility and Patient Discussion The patient agrees to receive Evusheld (tixagevimab 300 mg and cilgavimab 300 mg) at [place]. The patient verbalized understanding of repeating a COVID test 72 hours prior to the injections. called up patient in response to her mychart message today she tested covid negative on a rapid test on Wednesday this week Discussed evushed fact sheet and she agrees to proceed she will retest again today to be scheduled for Friday 12/08 at [facility] Paresh Fonseca MD documented in this encounterAshtabula County Medical Center10-03-2022 Instructions* Patient Instructions* No Reeder DO - 11/17/2021 4:26 PM EDT -- continue coumadin -- will get vascular ultrasound for vein and artery of your right leg -- will have you see my interventional cardiology partner regarding your peripheral artery disease and if your artery disease is impairing your wound healing for the leg ulcer documented in this encounterAshtabula County Medical Center10-03-2022 History of Present illness Narrative* No Reeder DO - 11/17/2021 3:53 PM EDT Images from the original note were not included. Heart and Vascular [place] [facility] Verdugo Department of Cardiovascular Medicine SECTION [...] DVT scan. Leg elevation. No Reeder DO, [facility] Vascular Medicine documented in this encounterAshtabula County Medical Center08-16-2022 History of Past illness Narrative* Problem Noted Date Resolved Date Altered tissue perfusion 022 documented as of this encounter (statuses as of 09/30/2021) [address]16-2022 History of Past illness Narrative* Problem Noted Date Resolved Date Altered tissue perfusion 16/2 022 documented as of this encounter (statuses as of 10/09/2021) [address]16-2022 History of Past illness Narrative* Problem Noted Date Resolved Date Altered tissue perfusion 16/2 022 documented as of this encounter (statuses as of 11/18/2021) [address]16-2022 History of Past illness Narrative* Problem Noted Date Resolved Date Altered tissue perfusion 09/30/2 022 documented as of this encounter (statuses as of 12/01/2021) [address]16-2022 History of Past illness Narrative* Problem Noted Date Resolved Date Altered tissue perfusion 2 022 documented as of this encounter (statuses as of 12/05/2021) [address]16-2022 History of Past illness Narrative* Problem Noted Date Resolved Date Altered tissue perfusion 2 022 documented as of this encounter (statuses as of 12/08/2021) [address]16-2022 History of Past illness Narrative* Problem Noted Date Resolved Date Altered tissue perfusion 09/30/2 022 documented as of this encounter (statuses as of 12/08/2021) [address]16-2022 History of Past illness Narrative* Problem Noted Date Resolved Date Altered tissue perfusion 16/2 022 documented as of this encounter (statuses as of 12/12/2021) [address]16-2022 History of Past illness Narrative* Problem Noted Date Resolved Date Altered tissue perfusion 16/2 022 documented as of this encounter (statuses as of 12/15/2021) [address]16-2022 History of Past illness Narrative* Problem Noted Date Resolved Date Altered tissue perfusion 16/2 022 documented as of this encounter (statuses as of 12/16/2021) [address]16-2022 History of Past illness Narrative* Problem Noted Date Resolved Date Altered tissue perfusion 16/2 022 documented as of this encounter (statuses as of 12/31/2021) [address]16-2022 History of Past illness Narrative* Problem Noted Date Resolved Date Altered tissue perfusion 16/2 022 documented as of this encounter (statuses as of 01/13/2022) [address]16-2022 History of Past illness Narrative* Problem Noted Date Resolved Date Altered tissue perfusion 09/30/2 022 documented as of this encounter (statuses as of 01/20/2022) [address]16-2022 History of Past illness Narrative* Problem Noted Date Resolved Date Altered tissue perfusion 09/30/2 022 documented as of this encounter (statuses as of 02/06/2022) [address]16-2022 History of Past illness Narrative* Problem Noted Date Resolved Date Altered tissue perfusion 09/30/2 022 documented as of this encounter (statuses as of 02/20/2022) [address]16-2022 History of Past illness Narrative* Problem Noted Date Resolved Date Altered tissue perfusion 2 022 documented as of this encounter (statuses as of 02/26/2022) [address]16-2022 History of Past illness Narrative* Problem Noted Date Resolved Date Altered tissue perfusion 2 022 documented as of this encounter (statuses as of 02/27/2022) [address]16-2022 History of Past illness Narrative* Problem Noted Date Resolved Date Altered tissue perfusion 2 022 documented as of this encounter (statuses as of 03/21/2022) [address]16-2022 History of Past illness Narrative* Problem Noted Date Resolved Date Altered tissue perfusion 2 022 documented as of this encounter (statuses as of 03/30/2022) [address]16-2022 History of Past illness Narrative* Problem Noted Date Resolved Date Altered tissue perfusion 2 022 documented as of this encounter (statuses as of 04/06/2022) [address]16-2022 History of Past illness Narrative* Problem Noted Date Resolved Date Altered tissue perfusion 09/30/2 022 documented as of this encounter (statuses as of 05/13/2022) [address]16-2022 History of Past illness Narrative* Problem Noted Date Diagnosed Date Resolved Date Altered tissue perfusion documented as of this encounter (statuses as of 2022) [address]16-2022 History of Past illness Narrative* Problem Noted Date Diagnosed Date Resolved Date Altered tissue perfusion documented as of this encounter (statuses as of 10/29/2022) [facility]08-16-[facility] Miscellaneous Notes* Telephone Encounter - [...] to pharmacy. Katina Duque documented in [facility] encounter[facility] Miscellaneous Notes* Telephone Encounter - [...] and advise. Rosibel Daniel documented in this encounterAs[facility] Miscellaneous Notes* Telephone Encounter - Van Olivarez APRN.CNP - 06/05/2021 4:46 PM EDT Spoke with pt regarding latest results, scr. at baseline. TAC level 8.6 prev two levels in 5 range.He believes latest level would be 12hr trough. No changes for now, if next level >7, can consider if reduction appropriate. He understands. Van Olivarez APRN.CNP [facility] Diagnosis Screening for genitourinary condition Screening for other and unspecified genitourinary condition documented in this encounter [facility] note* Diagnosis Acute deep vein thrombosis (DVT) of proximal end of right lower extremity ([facility])- Primary PAD (peripheral artery disease) ([facility]) Peripheral vascular disease, unspecified Nonhealing ulcer of heel ([facility]) Anticoagulation management encounter Encounter for therapeutic drug monitoring documented in this encounter [facility] note* Diagnosis Encounter for prophylactic measures, unspecified- Primary [facility] Diagnosis Kidney replaced by transplant- Primary documented in this encounter [facility]* Diagnosis MRSA bacteremia- Primary Bacteremia Diabetic foot ulcer with osteomyelitis ([facility]) Type II or unspecified type diabetes mellitus with other specified manifestations, not stated as uncontrolled ILIANA (acute kidney injury) ([facility]) Acute kidney failure, unspecified documented in this encounter [facility] note* Diagnosis Kidney replaced by transplant- Primary 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 [facility] current use of immunosuppressive drug documented [facility]* Diagnosis Hx of BKA, right (HCC)- Primary PAD (peripheral artery disease) ([facility]) Peripheral vascular disease, unspecified Mixed hyperlipidemia due to type 2 diabetes mellitus (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) Paroxysmal atrial fibrillation ([facility]) Atrial fibrillation documented in this encounter [facility]* Diagnosis Screening for genitourinary condition Screening for other and unspecified genitourinary condition documented in this encounter [facility]* Diagnosis Onset Date Resolution Status At high risk for skin breakdown chronic Diabetes chronic Fecal incontinence chronic Limited mobility chronic Poor appetite chronic Pressure ulcer of sacral region, unstageable chronic Candidiasis [facility] Work Phone: Evaluation noteNo InformationNortFirst [facility] [employer] Other Evaluation note* Diagnosis Kidney replaced by transplant- Primary [facility] Type 1 diabetes mellitus with [...] COLONOSCOPY 1995,2001, 2014 Hospitalization History see above [employer] Other Progress note Author Sadia Aguilar [facility] July 20, 2022 1:48pm Note Date/Time July 20, 2022 1:48p m [facility] [address] [place] [address] Wound Center Provider Note Signed Patient: Alex Almonte MR#: [id number] : 1945 Acct:[id number] Age/Sex: 76 / M Copies to: DO Sadia Whyte, [employer]~ HPI Date of Visit Date of Visit: Date of Service: 07/20/2022 Time of Service: 13:46 Narrative HPI: 12/30/21 Alex is a 76 year old male presenting to [facility] wound care for aninitial visit for eval and treatment of a sacral/coccyx area pressure ulcer. He resides at [facility]. There is an BOILER TUBE REAMER present for the visit. Medicalhoney gel will [...] his brief that was cleaned by this property underwriter as well as another nursing staff [...] from initial visit here Mode of Arrival/ Advertising Agent: Facility vehicle Assistive Device Used Today: Wheelchair and Indra Lives with:: Care/Nursing Facility Appetite Description: Within Normal Limits Who helps w/ dressing change?: Nursing Facility Why Do You Need Help?: Can't Reach Ulcer, Limited mobility and Taxing effort to leave home Smoking Status: Former smoker [facility] Medical History (Updated 03/03/22 @ [...] <Electronically signed by DAVID Aguilar> 07/20/22 [address] [facility] Work Phone: [facility] (narrative)* Outpatient Procedure (Routine) - Authorized Specialty Diagnoses / Procedures Referred By Contac t Referred To Contact [facility] Diagnoses PAD (peripheral artery disease) (HCC) Nonhealing ulcer of heel (HCC) Procedures US LEG ARTERIAL PERIPH UNL VAS LAB DUP-SCAN LXTR ART/ARTL BPGS UNI/LMTD STUDY No Reeder DO [address] [address] [facility] [place] [id number] Referral ID Status Reason Start Date Expiration Date Visits Requested Visits Authorized [id number] Authorized Auto-Generat ed Referral 11/17/2021 11/17/2022 1 1 * Outpatient Procedure (Routine) - Authorized Specialty Diagnoses / Procedures Referred By Contac t Referred To Contact [facility] Diagnoses Acute deep vein thrombosis (DVT) of proximal end of right lower extremity (HCC) Procedures US LEG VEIN DVT UNL VAS LAB DUP-SCAN XTR VEINS UNILATERAL/LIMITED STUDY No Reeder DO [address] [address] Referral ID Status Reason Start Date Expiration Date Visits Requested Visits Authorized [id number] Authorized Auto-Generat ed Referral 11/17/2021 11/17/2022 1 1 * Consult, Test, Treat (Routine) - Authorized Specialty Diagnoses / Procedures Referred By Contac t Referred To Contact Cardiology Diagnoses PAD (peripheral artery disease) (HCC) Nonhealing ulcer of heel (HCC) Procedures CONSULT TO CARDIOLOGY OFFICE/OUTPATIENT [facility] 60-74 MINUTES Savanah Marcelo MD [address] [address] Referral ID Status Reason Start Date Expiration Date Visits Requested Visits Authorized [id number] Authorized PCP Requested Referral 11/17/2021 11/17/2022 1 1 [facility] Summary Purpose Family History Relationship Condition Age at Onset Recorded Date/T kartik father Aneurysm Unknown father Parkinson's disease Unknown Advance Directives Documents on File Type Date Recorded Patient Sourcing Analyst Expl anation Advance Directive(s) Latest Code Status [...] Full Code Order Discussed With: Patient and Caitr martinaate Decision Maker Surrogate Decision Maker Name: Munira Brothers Surrogate Decision Maker Surrogate Decision Maker Relationship: M ajority of Adult Siblings (new accounts representative) DNR-CCA 09/26/2021 11:56 AM 10/01/2021 2:18 [...] Decision Maker Relationship: Majority of Adult Siblings (new accounts representative) Code Status History Code Status Date [...] and content) DATE CREATED AUTHOR 02/20/2021 [facility] DATE CREATED AUTHOR AUTHOR'S ORGANIZ ATION 07/25/[address] [facility] DATE CREATED AUTHOR AUTHOR'S ORGANIZ ATION 08/16/2022 [facility] DATE CREATED AUTHOR AUTHOR'S ORGANIZ ATION 09/17/2022 [facility] DATE CREATED AUTHOR AUTHOR'S ORGANIZ ATION 01/14/2023 [facility] DATE CREATED AUTHOR AUTHOR'S ORGANIZ ATION 03/20/2023 [facility] EPIC Source Comments (unrecognize d section and content) In the event this informatio n is protected by the Federal Confidentiality of Alcohol and Drug Abuse Patient Records regulations: The Federal rules restrict any use of the information to criminally investigate or prosecute any alcohol or drug abuse patient.[facility] the event this information is protected by the Federal Confidentiality of Alcohol and Drug Abuse Patient Records regulations: The Federal rules restrict any use of the information to criminally investigate or prosecute any alcohol or drug abuse patient.[facility] Center[facility] the event this information is protected by the Federal Confidentiality of Alcohol and Drug Abuse Patient Records regulations: The Federal rules restrict any use of the information to criminally investigate or prosecute any alcohol or drug abuse patient.[facility] Center[facility] the event this information is protected by the Federal Confidentiality of Alcohol and Drug Abuse Patient Records regulations: The Federal rules restrict any use of the information to criminally investigate or prosecute any alcohol or drug abuse patient.[facility] Center[facility] the event this information is protected by the Federal Confidentiality of Alcohol and Drug Abuse Patient Records regulations: The Federal rules restrict any use of the information to criminally investigate or prosecute any alcohol or drug abuse patient.[facility] Center[facility] the event this information is protected by the Federal Confidentiality of Alcohol and Drug Abuse Patient Records regulations: The Federal rules restrict any use of the information to criminally investigate or prosecute any alcohol or drug abuse patient.[facility] CenterIn the event this information is protected by the Federal Confidentiality of Alcohol and Drug Abuse Patient Records regulations: The Federal rules restrict any use of the information to criminally investigate or prosecute any alcohol or drug abuse patient.[facility] CenterIn the event this information is protected by the Federal Confidentiality of Alcohol and Drug Abuse Patient Records regulations: The Federal rules restrict any use of the information to criminally investigate or prosecute any alcohol or drug abuse patient.[facility] CenterIn the event this information is protected by the Federal Confidentiality of Alcohol and Drug Abuse Patient Records regulations: The Federal rules restrict any use of the information to criminally investigate or prosecute any alcohol or drug abuse patient.[facility] CenterIn the event this information is protected by the Federal Confidentiality of Alcohol and Drug Abuse Patient Records regulations: The Federal rules restrict any use of the information to criminally investigate or prosecute any alcohol or drug abuse patient.[facility] CenterIn the event this information is protected by the Federal Confidentiality of Alcohol and Drug Abuse Patient Records regulations: The Federal rules restrict any use of the information to criminally investigate or prosecute any alcohol or drug abuse patient.[facility] CenterIn the event this information is protected by the Federal Confidentiality of Alcohol and Drug Abuse Patient Records regulations: The Federal rules restrict any use of the information to criminally investigate or prosecute any alcohol or drug abuse patient.[facility] CenterIn the event this information is protected by the Federal Confidentiality of Alcohol and Drug Abuse Patient Records regulations: The Federal rules restrict any use of the information to criminally investigate or prosecute any alcohol or drug abuse patient.[facility] CenterIn the event this information is protected by the Federal Confidentiality of Alcohol and Drug Abuse Patient Records regulations: The Federal rules restrict any use of the information to criminally investigate or prosecute any alcohol or drug abuse patient.[facility] CenterIn the event this information is protected by the Federal Confidentiality of Alcohol and Drug Abuse Patient Records regulations: The Federal rules restrict any use of the information to criminally investigate or prosecute any alcohol or drug abuse patient.[facility] CenterIn the event this information is protected by the Federal Confidentiality of Alcohol and Drug Abuse Patient Records regulations: The Federal rules restrict any use of the information to criminally investigate or prosecute any alcohol or drug abuse patient.[facility] CenterIn the event this information is protected by the Federal Confidentiality of Alcohol and Drug Abuse Patient Records regulations: The Federal rules restrict any use of the information to criminally investigate or prosecute any alcohol or drug abuse patient.[facility] CenterIn the event this information is protected by the Federal Confidentiality of Alcohol and Drug Abuse Patient Records regulations: The Federal rules restrict any use of the information to criminally investigate or prosecute any alcohol or drug abuse patient.[facility] CenterIn the event this information is protected by the Federal Confidentiality of Alcohol and Drug Abuse Patient Records regulations: The Federal rules restrict any use of the information to criminally investigate or prosecute any alcohol or drug abuse patient.[facility] CenterIn the event this information is protected by the Federal Confidentiality of Alcohol and Drug Abuse Patient Records regulations: The Federal rules restrict any use of the information to criminally investigate or prosecute any alcohol or drug abuse patient.[facility] CenterIn the event this information is protected by the Federal Confidentiality of Alcohol and Drug Abuse Patient Records regulations: The Federal rules restrict any use of the information to criminally investigate or prosecute any alcohol or drug abuse patient.[facility] CenterIn the event this information is protected by the Federal Confidentiality of Alcohol and Drug Abuse Patient Records regulations: The Federal rules restrict any use of the information to criminally investigate or prosecute any alcohol or drug abuse patient.[facility] CenterIn the event this information is protected by the Federal Confidentiality of Alcohol and Drug Abuse Patient Records regulations: The Federal rules restrict any use of the information to criminally investigate or prosecute any alcohol or drug abuse patient.[facility] CenterIn the event this information is protected by the Federal Confidentiality of Alcohol and Drug Abuse Patient Records regulations: The Federal rules restrict any use of the information to criminally investigate or prosecute any alcohol or drug abuse patient.[facility] CenterIn the event this information is protected by the Federal Confidentiality of Alcohol and Drug Abuse Patient Records regulations: The Federal rules restrict any use of the information to criminally investigate or prosecute any alcohol or drug abuse patient.[facility] CenterIn the event this information is protected by the Federal Confidentiality of Alcohol and Drug Abuse Patient Records regulations: The Federal rules restrict any use of the information to criminally investigate or prosecute any alcohol or drug abuse patient.[facility] Reason for Visit (unrecogniz ed section and content) Reason Comments Results Reason Comments Refill Request Reason Comments Patient Update francusheld discussion Reason Comments CoPat Start copat stop [...] Care Teams (unrecognized sec tion and content) Tso Relationship Specialty Start Date End Date Devon Moreira, DO [address] [place] [address] PCP - General 05/27/00 Tso Relationship Specialty Start Date End Date Devon Moreira, DO [address] [place] [address] PCP - General 05/27/00 Tso Relationship Specialty Start Date End Date Devon Moreira, DO [address] [place] [address] PCP - General 05/27/00 Tso Relationship Specialty Start Date End Date Devon Moreira, DO [address] [place] [address] PCP - General 05/27/00 Tso Relationship Specialty Start Date End Date Devon Moreira, DO [address] [place] [address] PCP - General 05/27/00 Tso Relationship Specialty Start Date End Date Devon Moreira, DO [address] [place] [address] PCP - General 05/27/00 Tso Relationship Specialty Start Date End Date Devon Moreira, DO [address] [place] [address] PCP - General 05/27/00 Tso Relationship Specialty Start Date End Date Devon Moreira, DO [address] [place] [address] PCP - General 05/27/00 Tso Relationship Specialty Start Date End Date Devon Moreira, DO [address] [place] [address] PCP - General 05/27/00 Tso Relationship Specialty Start Date End Date Devon Moreira, DO [address] [place] [address] PCP - General 05/27/00 Tso Relationship Specialty Start Date End Date Devon Moreira, DO [address] [place] [address] PCP - General 05/27/00 Tso Relationship Specialty Start Date End Date Devon Moreira, DO [address] [place] [address] PCP - General 05/27/00 Tso Relationship Specialty Start Date End Date Devon Moreira, DO [address] [place] [address] PCP - General 05/27/00 Tso Relationship Specialty Start Date End Date Devon Moreira, DO [address] [place] [address] PCP - General 05/27/00 Tso Relationship Specialty Start Date End Date Devon Moreira, DO [address] [place] [address] PCP - General 05/27/00 Tso Relationship Specialty Start Date End Date Devon Moreira, DO [address] [place] [address] PCP - General 05/27/00 Tso Relationship Specialty Start Date End Date Devon Moreira, DO [address] [place] [address] PCP - General 05/27/00 Tso Relationship Specialty Start Date End Date Devon Moreira, DO [address] [place] [address] PCP - General 05/27/00 Tso Relationship Specialty Start Date End Date Devon Moreira, DO [address] [place] [address] PCP - General 05/27/00 Team Status: Active Member Role Status Dates Devon Moreira DO Primary Care Provider Active Team Status: Inactive Member Role Status Dates Devon Moreira DO Primary Care Provider Active Sadia Aguilar APRN Attending Provider Active Tso Relationship Specialty Start Date End Date LillieDevonDO [address] [place] [address] PCP - General 05/27/00 Tso Relationship Specialty Start Date End Date Lillie Devon RaquelDO [address] [place] [address] PCP - General 05/27/00 Tso Relationship Specialty Start Date End Date Ni Cabrera Demetrice, DO [address] [facility] [address] [place] [address] PCP - ACO Reach 07/09/22 Devon Moreira MD [address] [place] [address] PCP - General Internal Medicine 07/14/22 PRN Active and Recently Administ ered Medications (unrecognized section and content) Medication Order 01/10/2022 01/11/2022 01/12/2022 lidocaine (PF) 10 mg/mL (1 %) injection (XYLOCAINE) SUBCUTANEOUS, X (OR/PROCEDURE) PRN, Starting on Wed01/12/22 at 1032, Until Wed01/13/22 at 0303, Intraprocedure 1032 (Given - Provid er: Vani Hdz APRN.CRAPS MANAGER) Goals (unrecognized section and content) Goals [...] BE BASED ON THE PRIMARY CLINICAL RECORDS. [facility]. provides no warranty or guarantee of the accuracy or completeness of information in this document.
[2023-04-21 08:34] LABS: Alanine Aminotransferase 17 U/L (16-63); Albumin Globulin Ratio 0.8; Albumin Level 2.4 g/dL (3.4-5.0); Alkaline Phosphatase 61 U/L (46-116); Anion Gap 10.1; Aspartate Amino Transferase 18 U/L (15-37); BUN Creatinine Ratio 27.7; Bilirubin Total 0.5 mg/dL (0.2-1.0); Calcium 8.1 mg/dL (8.5-10.1); Carbon Dioxide 28.9 mmol/L (21.0-32.0); Chloride 104 mmol/L (98-107); Estimated GFR (African America 51 (>=60); Estimated GFR (Non-African Ame 42 (>=60); Globulin 3.2 g/dL; Glucose 82 mg/dL (74-106); Sodium 139 mmol/L (136-145); Total Protein 5.6 g/dL (6.4-8.2)
[2023-04-21 08:46] LABS: INR 2.33; Prothrombin Time 23.5 sec (9.0-11.6)
[2023-04-21 09:59] LABS: Basophils Absolute Auto 0.1 10^3/uL (0.0-0.1); Basophils Percent Auto 0.7 % (0.2-2.0); Eosinophils Absolute Auto 0.4 10^3/uL (0.0-0.7); Eosinophils Percent Auto 4.9 % (0.9-7.0); Hematocrit 29.9 % (42.0-54.0); Hemoglobin 9.4 g/dL (14.0-18.0); Immature Granulocytes Abs Auto 0.02 10^3/uL (0.00-0.03); Immature Granulocytes Pct Auto 0.3 % (0.0-0.5); Lymphocytes Absolute Auto 2.3 10^3/uL (1.2-3.8); Lymphocytes Percent Auto 31.7 % (20.5-60.0); Mean Corpuscular HGB Conc 31.4 g/dL (29.9-35.2); Mean Corpuscular Volume 85.9 fL (80.0-94.0); Mean Platelet Volume 11.5 fL (9.5-13.5); Monocytes Absolute Auto 0.9 10^3/uL (0.3-0.8); Monocytes Percent Auto 11.7 % (1.7-12.0); Neutrophils Absolute Auto 3.7 10^3/uL (1.4-6.5); Neutrophils Percent Auto 50.7 % (43.0-75.0); Platelet Count 191 10^3/uL (150-450); Red Blood Count 3.48 10^6/uL (4.70-6.10); White Blood Count 7.3 10^3/uL (4.0-11.0)
[2023-04-24 15:09] LABS: Tacrolimus (FK506), Blood 3.9 ng/mL (2.0-20.0)
== END 2023-04-21 01:46 | disposition home or self-care (01) ==
LOC: LAB 01:45
PROVIDERS: PCP Internal Medicine; Visit Provider Internal Medicine
DX: N18.9 Chronic kidney disease, unspecified (principal)
CPT/HCPCS: 36415; 80053; 80197; 85025; 85610

== ENCOUNTER 2023-04-28 01:55 | Outpatient (REF) | payer MEDICARE, OTHER, SELFPAY ==
--- OUTSIDE RECORDS SUMMARY | 2023-04-28 02:01 | XMS_ITS | CCD ---
Author Name Unknown Address [address] [facility] [address] [place] [address] Organization [facility] Care Team Providers Care Treasury Consultant Name Role Phone PROVIDER, UNKNOWN Attending [...] MISC, DR RYDER Admitting Unavailable MISC, DR RYEDR Attending Unavailable BALL, DR OSORIO Primary Care [...] Primary Care Provider DAVID Aguilar Attending Provider [phone] Sadia Aguilar Attending Unavailable Jeff, Sadia Admitting [...] [PYRIDOSTIGMINE BROMIDE] Drug Allergy 2 GI Upset [facility] Work Phone: (1 source) ALLERGIES NOT ON FILE; Translations: [ALLERGIES NOT ON FILE] Propensity to adverse reactions (disorder) [place] Repository (1 source) Pyridostigmine Drug Allergy 2 [...] Indications: Type 1 diabetes mellitus with nephropathy ([facility]) 3 units breakfast, 5 units lunch, [...] 10 units and notify provider K Phos Treutlen-Sod Phos Di & Treutlen 155-852-130 MG (6 sources) take 155-852 tablets by mouth twice daily K Phos Treutlen-Sod Phos Di & Treutlen 155-852-130 MG 1 tablet Orally twice daily Active take 155-852 tablets by mouth four times daily take 155-852 tablets by mouth four times daily K Phos Treutlen-Sod Phos Di & Treutlen 155-852-130 MG 1 tablet Orally Four times [...] by mouth daily with lunch. Magic Cup Madelia with lunch 7110 mL 0 12/11/2021 Active Comment on above: Take 237 mL by mouth daily with lunch. Magic Cup Madelia with lunch polyethylene glycol 3350 40655 mg powder for oral solution (20 sources) [...] Comment on above: Take 1 Packet by edbi th once daily. 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; Translations: [FRUIT CANNER CURRNT USE ANTICOAGULANTS] Onset: 3 Episodic Other [...] care facility (current) drug therapy; Translations: [OTH FRUIT CANNER CURRENT DRUG THERAPY] Onset: 02-05-2022 Episodic Other aftercare (4 sources) 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 Sonya 12-25-2022 [place] Telephone (TXCTGL) ALEX ALMONTE ([id number]) 1945 M Date Time Provider Department 12/25/22 KIDNEY TXP COORDINATORS TXCTGL During your visit today, we recorded the following information about you: Duane Ryan 12/25/2022 10:41 AM Signed Labs 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 Administrative Fine Grader Allergies As of Date: 12/25/2022 Noted Allergy [...] by mouth daily with lunch. 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 Magic Cup Madelia with lunch aspirin, enteric coated (ASPIRIN, ENTERIC [...] am? thanks! RF Pts RN at [facility] reports pts sister picks up [...] Apply 0. (more content not included)... Normal [facility] Office Visiton 09-09-2022 Follow-up visit [id number] Alex Almonte 1945 M Date Provider Department Center 09/09/2022 1596-SARTHAK PARNELL CARD Rupal Hos Family History Problem Relation Age of Onset Cancer Mother Aneurysm Father Cancer Father Parkinsonism Father Family Status - Relation Status Age at Mother Father Level of Service:29317 [place] OFFICE/OUTPATIENT ESTABLISHED MOD MDM 30-39 MIN Normal [place] Glucose Poct Glucometerson 0 07-20-2022 Commemt1 Glu2: Cleaned Meter Normal [facility] Comment on above: Result Comment: PERF ORMED BY: [facility] [address] [place] [address] PATHOLOGIST TRANSPORTATION OFFICER JOSE F ELLIOTT M.D. Performed By: #### G MADY #### Point of Care testing , Glucose [Mass/Vol] 176 mg/dL Normal [facility] Comment on above: Result Comment: [facility] Glucose Reference Range is dependent on time and content of last meal. Glucose of more than 200 mg/dL in a nonstressed, ambulatory subject supports the diagnosis of Diabetes Mellitus. Performed By: #### G LULS #### Point of Care testing , FK506 (TACROLIMUS) WHOLE BLO ODon 07-12-2022 Tacrolimus (FK506), Blood 10.9 ng/mL Normal 2.0-20.0 [facility] Comment on above: Result Comment: Trou gh (immediately following transplant) 15.0 . Trough (steady state, 2 weeks or more after transplant): 3.0 - 8.0 . Performed by LC-MS/MS technology. Performed By: #### F K506T ####[facility] [address] [place], [place] [address]Dr. Farhat Leal CBC AUTO DIFFon 07-10-2022 BASO # 0.0 103/ul Normal 0.0-0.1 [facility] Comment on above: Performed By: #### C BC ####[facility] [address] [place], [place] [address]Dr. Farhat Leal Basophils/100 WBC (Bld) 0.5 % Normal 0.2-2.0 [facility] Comment on above: Performed By: #### C BC ####[facility] X[address]ukgu[address] [place], [place] [address]Dr. Farhat Leal EO # 0.3 103/ul Normal 0.0-0.7 [facility] Comment on above: Performed By: #### C BC ####[facility] Z[address]qi[address] [place], [place] [address]Dr. Farhat Leal Eosinophils/100 WBC (Bld) 4.9 % Normal 0.9-7.0 [facility] Comment on above: Performed By: #### C BC ####[facility] Eqydamvlao[address] [place], [place] [address]Dr. Farhat Leal Erythrocyte distribution width (RBC) [Ratio] 13.8 % Normal 11.0-15.0 [facility] Comment on above: Performed By: #### C BC ####[facility] [address] [place], [place] [address]Dr. Farhat Leal Hematocrit (Bld) [Volume fraction] 36.6 % Critically low 42.0-54.0 [facility] Comment on above: Performed By: #### C BC ####[facility] [address] [place] [phone]. Farhat Leal Hemoglobin (Bld) [Mass/Vol] 12.2 g/dL Critically low 14.0-18.0 [facility] Comment on above: Performed By: #### C BC ####[facility] [address] [place] [phone]. Farhat Leal IG # 0.01 10e3/ul Normal 0.00-0.03 [facility] Comment on above: Performed By: #### C BC ####[facility] E[address]sojln[address] [place] [phone]. Farhat Leal IG % 0.2 % Normal 0.0-0.5 [facility] Comment on above: Performed By: #### C BC ####[facility] [address] [place] [address]Dr. Farhat Leal LYMPH # 2.2 103/ul Normal 1.2-3.8 [facility] Comment on above: Performed By: #### C BC ####[facility] W[address]udnanq24[address] [place] [phone]. Farhat Leal Lymphocytes/100 WBC (Bld) 33.9 % Normal 20.5-60.0 [facility] Comment on above: Performed By: #### C BC ####[facility] Hqrlzojzio[address] [place] [phone]. Farhat Leal MANUAL DIFF REQ NO Normal [facility] Comment on above: Performed By: #### C BC ####[facility] S[address]gk[address] [place] [phone]. Farhat Leal MCH (RBC) [Entitic mass] 31.0 pg Normal 25.9-34.0 [facility] Comment on above: Performed By: #### C BC ####[facility] F[address]ogdsfak[address] [place] [phone]. Farhat Leal MCHC (RBC) [Mass/Vol] 33.3 g/dL Normal 29.9-35.2 [facility] Comment on above: Performed By: #### C BC ####[facility] Y[address]klge[address]ub[address] [place] [phone]. Farhat Leal MCV (RBC) [Entitic vol] 93.1 fL Normal 80.0-94.0 [facility] Comment on above: Performed By: #### C BC ####[facility] Ofakjetdkv[address] [place] [phone]. Farhat Leal MONO # 0.7 103/ul Normal 0.3-0.8 [facility] Comment on above: Performed By: #### C BC ####[facility] Ij[address]yozzpm[address] [place] [phone]. Farhat Leal Monocytes/100 WBC (Bld) 10.8 % Normal 1.7-12.0 [facility] Comment on above: Performed By: #### C BC ####[facility] [address] [place], [place] [id number]. Farhat Leal NEUT # 3.2 103/ul Normal 1.4-6.5 [facility] Comment on above: Performed By: #### C BC ####[facility] G[address]ylhwag[address] [place] [phone]. Farhat Leal Neutrophils/100 WBC (Bld) 49.7 % Normal 43.0-75.0 [facility] Comment on above: Performed By: #### C BC ####[facility] Rhssexlxrh[address] [place] [phone]. Farhat Leal Platelet mean volume (Bld) [Entitic vol] 10.9 fL Normal 9.5-13.5 [facility] Comment on above: Performed By: #### C BC ####[facility] [address]ffmfmo[address] [place] [phone]. Farhat Leal PLT 195 103/ul Normal 150-450 [facility] Comment on above: Performed By: #### C BC ####[facility] Kngbkaesfa[address] [place] [phone]. Farhat Leal RBC 3.93 106/ul Critically low 4.70-6.10 [facility] Comment on above: Performed By: #### C BC ####[facility] X[address]zdpsl[address] [place] [address]Dr. Farhat Leal WBC 6.4 103/ul Normal 4.0-11.0 [facility] Comment on above: Performed By: #### C BC ####[facility] Z[address]zdcyj[address] [place] [address]Dr. Farhat Leal MAGNESIUMon 07-10-2022 Magnesium [Mass/Vol] 1.9 mg/dL Normal 1.8-2.4 [facility] Comment on above: Performed By: #### M G PHOS ####[facility] [address]eb[address]eltdv[address] [place] [address]Dr. Farhat Leal PHOSPHORUSon 07-10-2022 Phosphate [Mass/Vol] 4.7 mg/dL Normal 2.6-4.7 [facility] Comment on above: Performed By: #### Demetrice Manzo PHOS ####[facility] [address] [place], [place] [address]Dr. Farhat Leal PROF 14(COMP METB)on 023 Albumin [Mass/Vol] 2.7 g/dL Critically low 3.4-5.0 [facility] Comment on above: Performed By: #### C MP ####[facility] [address]bx[address]upz[address] [place], [place] [address]Dr. Farhat Leal Albumin/Globulin [Mass ratio] 0.8 {ratio} Normal [facility] Comment on above: Performed By: #### C MP ####[facility] S[address]wqeld[address] [place] [address]Dr. Farhat Leal ALP [Catalytic activity/Vol] 59 U/L Normal 46-116 [facility] Comment on above: Performed By: #### C MP ####[facility] X[address]ogphdxqa[address] [place], [place] [address]Dr. Farhat Leal ALT [Catalytic activity/Vol] 16 U/L Normal 16-63 [facility] Comment on above: Performed By: #### C MP ####[facility] G[address]ylzhakuh[address] [place], [place] [address]Dr. Farhat Leal Anion gap [Moles/Vol] 12.3 mmol/L Normal [facility] Comment on above: Performed By: #### C MP ####[facility] Lxyfhfuvym[address] [place] [address]Dr. Farhat Elvis AST [Catalytic activity/Vol] 17 U/L Normal 15-37 [facility] Comment on above: Performed By: #### C MP ####[facility] Hxpeqzygus[address] [place], [place] [address]Dr. Farhat Leal Bilirubin [Mass/Vol] 0.5 mg/dL Normal 0.2-1.0 [facility] Comment on above: Performed By: #### C MP ####[facility] Vxmnuaeadg[address] [place], [place] [address]Dr. Farhat Leal Calcium [Mass/Vol] 8.5 mg/dL Normal 8.5-10.1 [facility] Comment on above: Performed By: #### C MP ####[facility] [address]spswjdxuc[address] [place], [place] [address]Dr. Farhat Leal Chloride [Moles/Vol] 104 mmol/L Normal 98-107 [facility] Comment on above: Performed By: #### C MP ####[facility] Nescadxaxv[address] [place], [place] [address]Dr. Farhat Leal CO2 [Moles/Vol] 27.6 mmol/L Normal 21.0-32.0 [facility] Comment on above: Performed By: #### C MP ####[facility] Hgqodurxll[address] [place], [place] [address]Dr. Farhat Leal Creatinine [Mass/Vol] 1.79 mg/dL Critically high 0.70-1.30 [facility] Comment on above: Performed By: #### C MP ####[facility] [address] [place], [place] [address]Dr. Farhat Leal EGFR-AF MOZAMBICAN 45 mL/min/1.73m2 Critically low >=60 [facility] Comment on above: Performed By: #### C MP ####[facility] K[address]jstm[address] [place], [place] [address]Dr. Farhat Leal EGFR-NON AF MOZAMBICAN 37 mL/min/1.73m2 Critically low >=60 [facility] Comment on above: Performed By: #### C MP ####[facility] Ion[address]vgbzh[address] [place] [address]Dr. Farhat Leal Globulin (S) [Mass/Vol] 3.2 g/dL Normal [facility] Comment on above: Performed By: #### C MP ####[facility] Yvzzjektul8474 [place] [address]Dr. Farhat Elvis Glucose [Mass/Vol] 203 mg/dL Critically high 74-106 [facility] Comment on above: Performed By: #### C MP ####[facility] Cwxxwtmfta8[address] [place] [address]Dr. Farhat Leal Potassium [Moles/Vol] 3.9 mmol/L Normal 3.5-5.1 [facility] Comment on above: Performed By: #### C MP ####[facility] [address]ytzuknmw[address] [place], [place] [address]Dr. Farhat Elvis Protein [Mass/Vol] 5.9 g/dL Critically low 6.4-8.2 [facility] Comment on above: Performed By: #### C MP ####[facility] Uqrbrzpcjz[address] [place], [place] [address]Dr. Farhat Elvis Sodium [Moles/Vol] 140 mmol/L Normal 136-145 [facility] Comment on above: Performed By: #### C MP ####[facility] W[address]lhwacpn[address] [place], [place] [address]Dr. Farhat Elvis Urea nitrogen [Mass/Vol] 61.0 mg/dL Critically high 7.0-18.0 [facility] Comment on above: Performed By: #### C MP ####[facility] Jsymvndrsb[address] [place], [place] [address]Dr. Farhat Leal Urea nitrogen/Creatinine [Mass ratio] 34.1 mg/mg Normal [facility] Comment on above: Performed By: #### C MP ####[facility] Itsryqniig4[address] [place], [place] [address]Dr. Farhat Leal PROTIMEon 07-10-2022 INR Coag (PPP) [Relative time] 2.95 {INR} Normal [facility] Comment on above: Performed By: #### P T ####[facility] [address]lqunvun[address] [place], [place] [address]Dr. Farhat Leal INR GUIDELINES SEE BELOW Normal [facility] Comment on above: Result Comment: MALINA RED INR: 2.0 - 3.0 CONDITIONS NOT LISTED BELOW 2.5 - 3.5 FOR PROSTHETIC HEART VALVE REPLACEMENT 2.5 - 3.5 RECURRENT THROMBOSIS Performed By: #### P T ####[facility] Kx[address]qvutnd[address] [place], [place] [address]Dr. Farhat Leal PT Coag (PPP) [Time] 29.4 s Critically high 9.0-11.6 [facility] Comment on above: Performed By: #### P T ####[facility] Rjriukrzmh[address] [place], [place] [address]Dr. Farhat Leal FK506 (TACROLIMUS) WHOLE BLO ODon 07-07-2022 Tacrolimus (FK506), Blood 8.3 ng/mL Normal 2.0-20.0 [facility] Comment on above: Result Comment: Trou gh (immediately following transplant) 15.0 . Trough (steady state, 2 weeks or more after transplant): 3.0 - 8.0 . Performed by LC-MS/MS technology. Performed By: #### F K506T ####[facility] Ywnxdzrind[address] [place], [place] [address]Dr. Farhat Leal CBC AUTO DIFFon 07-03-2022 BASO # 0.0 103/ul Normal 0.0-0.1 [facility] Comment on above: Performed By: #### C BC ####[facility] Sbicpbmccx[address] [place], [place] [address]DrSkylar Leal Basophils/100 WBC (Bld) 0.6 % Normal 0.2-2.0 [facility] Comment on above: Performed By: #### C BC ####[facility] Ztqiynvzag[address] [place], [place] [address]Dr. Farhat Leal EO # 0.3 103/ul Normal 0.0-0.7 [facility] Comment on above: Performed By: #### C BC ####[facility] C[address]aqpjo4[address] [place] [phone]. Farhat Leal Eosinophils/100 WBC (Bld) 4.1 % Normal 0.9-7.0 [facility] Comment on above: Performed By: #### C BC ####[facility] Mtvlpbkeps4[address] [place] [address]Dr. Farhat Leal Erythrocyte distribution width (RBC) [Ratio] 14.0 % Normal 11.0-15.0 [facility] Comment on above: Performed By: #### C BC ####[facility] Av[address]ppeyjt[address] [place] [address]Dr. Farhat Leal Hematocrit (Bld) [Volume fraction] 35.9 % Critically low 42.0-54.0 [facility] Comment on above: Performed By: #### C BC ####[facility] [address]sfoanqnou[address] [place], [place] [address]Dr. Farhat Leal Hemoglobin (Bld) [Mass/Vol] 12.0 g/dL Critically low 14.0-18.0 [facility] Comment on above: Performed By: #### C BC ####[facility] Zyg[address]myhpz[address] [place], [place] [address]Dr. Farhat Leal IG # 0.04 10e3/ul Critically high 0.00-0.03 [facility] Comment on above: Performed By: #### C BC ####[facility] [address]ou[address] [place] [address]Dr. Farhat Leal IG % 0.6 % Critically high 0.0-0.5 [facility] Comment on above: Performed By: #### C BC ####[facility] W[address]cydrsll[address] [place], [place] [address]Dr. Farhat Leal LYMPH # 1.5 103/ul Normal 1.2-3.8 [facility] Comment on above: Performed By: #### C BC ####[facility] Nfkeuldjzw[address] [place] [address]Dr. Farhat Leal Lymphocytes/100 WBC (Bld) 21.5 % Normal 20.5-60.0 [facility] Comment on above: Performed By: #### C BC ####[facility] [address]ne[address] [place] [address]Dr. Farhat Leal MANUAL DIFF REQ NO Normal [facility] Comment on above: Performed By: #### C BC ####[facility] [address]qlxrlew[address] [place] [phone]. Farhat Leal MCH (RBC) [Entitic mass] 30.8 pg Normal 25.9-34.0 [facility] Comment on above: Performed By: #### C BC ####[facility] Emvblpageq9957 [place] [address]Dr. Farhat Leal MCHC (RBC) [Mass/Vol] 33.4 g/dL Normal 29.9-35.2 [facility] Comment on above: Performed By: #### C BC ####[facility] [address]ktzmnyle[address] [place], [place] [address]Dr. Farhat Leal MCV (RBC) [Entitic vol] 92.1 fL Normal 80.0-94.0 [facility] Comment on above: Performed By: #### C BC ####[facility] Orqix[address]ot[address] [place], [place] [address]Dr. Farhat Leal MONO # 0.6 103/ul Normal 0.3-0.8 [facility] Comment on above: Performed By: #### C BC ####[facility] [address]ukfksaitf[address] [place] [address]Dr. Farhat Leal Monocytes/100 WBC (Bld) 8.7 % Normal 1.7-12.0 [facility] Comment on above: Performed By: #### C BC ####[facility] [address]fpvvlrulg[address] [place], [place] [address]Dr. Farhat Leal NEUT # 4.4 103/ul Normal 1.4-6.5 [facility] Comment on above: Performed By: #### C BC ####[facility] [address]qmfqnt[address] [place], [place] [address]Dr. Farhat Leal Neutrophils/100 WBC (Bld) 64.5 % Normal 43.0-75.0 [facility] Comment on above: Performed By: #### C BC ####[facility] Qrmi[address]kjnz[address] [place] [phone]. Farhat Leal Platelet mean volume (Bld) [Entitic vol] 10.1 fL Normal 9.5-13.5 [facility] Comment on above: Performed By: #### C BC ####[facility] D[address]rwirvj38[address] [place] [phone]. Farhat Leal PLT 177 103/ul Normal 150-450 [facility] Comment on above: Performed By: #### C BC ####[facility] Dtbxsdryzq7891 [place] [phone]. Farhat Leal RBC 3.90 106/ul Critically low 4.70-6.10 [facility] Comment on above: Performed By: #### C BC ####[facility] Kayogcenat[address] [place] [address]Dr. Farhat Leal WBC 6.8 103/ul Normal 4.0-11.0 [facility] Comment on above: Performed By: #### C BC ####[facility] Yiasjojmfu2256 [place] [phone] Leal PROF 14(COMP METB)on 023 Albumin [Mass/Vol] 2.8 g/dL Critically low 3.4-5.0 [facility] Comment on above: Performed By: #### C MP ####[facility] [address]oryoltn[address] [place] [address]DrSkylar Leal Albumin/Globulin [Mass ratio] 0.8 {ratio} Normal [facility] Comment on above: Performed By: #### C MP ####[facility] Pouwaqigtp6237 [place] [phone] Leal ALP [Catalytic activity/Vol] 68 U/L Normal 46-116 [facility] Comment on above: Performed By: #### C MP ####[facility] Wvhxhtcjtu8687 [place] [address]DrSkylar Leal ALT [Catalytic activity/Vol] 20 U/L Normal 16-63 [facility] Comment on above: Performed By: #### C MP ####[facility] Npmnehqqjk5816 [place] [phone]. Farhat Leal Anion gap [Moles/Vol] 11.1 mmol/L Normal [facility] Comment on above: Performed By: #### C MP ####[facility] Kjfhgenaxr2235 [place] [phone]. Farhat Leal AST [Catalytic activity/Vol] 22 U/L Normal 15-37 [facility] Comment on above: Performed By: #### C MP ####[facility] Hrdyvedknq01[address] [place] [phone]. Farhat Elvis Bilirubin [Mass/Vol] 0.4 mg/dL Normal 0.2-1.0 [facility] Comment on above: Performed By: #### C MP ####[facility] [address]epjxtbe[address] [place], [place] [address]Dr. Madelynlorri Leal Calcium [Mass/Vol] 8.5 mg/dL Normal 8.5-10.1 [facility] Comment on above: Performed By: #### C MP ####[facility] [address]zslsacip[address] [place], [place] [address]Dr. Farhat Elvis Chloride [Moles/Vol] 106 mmol/L Normal 98-107 [facility] Comment on above: Performed By: #### C MP ####[facility] Lyfcywldvw44[address] [place] [address]Dr. Farhat Elvis CO2 [Moles/Vol] 29.1 mmol/L Normal 21.0-32.0 [facility] Comment on above: Performed By: #### C MP ####[facility] Rrydzmvmlk32[address] [place] [address]Dr. Farhat Elvis Creatinine [Mass/Vol] 1.70 mg/dL Critically high 0.70-1.30 [facility] Comment on above: Performed By: #### C MP ####[facility] [address]bttfbzu[address] [place] [address]Dr. Madelynlorri Elvis EGFR-AF MOZAMBICAN 48 mL/min/1.73m2 Critically low >=60 [facility] Comment on above: Performed By: #### C MP ####[facility] Zettuovqrb67[address] [place] [phone]. Farhat Leal EGFR-NON AF MOZAMBICAN 39 mL/min/1.73m2 Critically low >=60 [facility] Comment on above: Performed By: #### C MP ####[facility] Mqwqciilgq5[address] [place] [phone]. Farhat Leal Globulin (S) [Mass/Vol] 3.6 g/dL Normal [facility] Comment on above: Performed By: #### C MP ####[facility] Eamymdaszt0551 [place] [phone]. Farhat Leal Glucose [Mass/Vol] 312 mg/dL Critically high 74-106 [facility] Comment on above: Performed By: #### C MP ####[facility] Xrsxaxjzwa0314 [place] [phone]. Farhat Elvis Potassium [Moles/Vol] 4.2 mmol/L Normal 3.5-5.1 [facility] Comment on above: Performed By: #### C MP ####[facility] Lrgctmxusl0218 [place] [phone]. Farhat Leal Protein [Mass/Vol] 6.4 g/dL Normal 6.4-8.2 [facility] Comment on above: Performed By: #### C MP ####[facility] Pvesvunjhr1245 [place] [phone]. Farhat Leal Sodium [Moles/Vol] 142 mmol/L Normal 136-145 [facility] Comment on above: Performed By: #### C MP ####[facility] [address]ambpxo[address] [place] [phone]. Farhat Leal Urea nitrogen [Mass/Vol] 49.0 mg/dL Critically high 7.0-18.0 [facility] Comment on above: Performed By: #### C MP ####[facility] Ocnlvvpdem67[address] [place] [phone]. Farhat Elvis Urea nitrogen/Creatinine [Mass ratio] 28.8 mg/mg Normal [facility] Comment on above: Performed By: #### C MP ####[facility] [address]nnfizp[address] [place], [place] [address]Dr. Farhat Leal PROTIMEon 07-03-2022 INR Coag (PPP) [Relative time] 2.23 {INR} Normal [facility] Comment on above: Performed By: #### P T ####[facility] Rxfvlkuuzc[address] [place], [place] [address]Dr. Farhat Leal INR GUIDELINES SEE BELOW Normal [facility] Comment on above: Result Comment: MALINA RED INR: 2.0 - 3.0 CONDITIONS NOT LISTED BELOW 2.5 - 3.5 FOR PROSTHETIC HEART VALVE REPLACEMENT 2.5 - 3.5 RECURRENT THROMBOSIS Performed By: #### P T ####[facility] Brdkdkvzlc[address] [place], [place] [address]Dr. Farhat Leal PT Coag (PPP) [Time] 22.6 s Critically high 9.0-11.6 [facility] Comment on above: Performed By: #### P T ####[facility] Kbajfbyydo[address] [place], [place] [address]Dr. Farhat Leal FK506 (TACROLIMUS) WHOLE BLO ODon 06-29-2022 Tacrolimus (FK506), Blood 12.2 ng/mL Normal 2.0-20.0 [facility] Comment on above: Result Comment: Trou gh (immediately following transplant) 15.0 . Trough (steady state, 2 weeks or more after transplant): 3.0 - 8.0 . Performed by LC-MS/MS technology. Performed By: #### F K506T ####[facility] Dhyafpnerd[address] [place], [place] [address]DrSkylar Leal CBC AUTO DIFFon 06-26-2022 BASO # 0.0 103/ul Normal 0.0-0.1 [facility] Comment on above: Performed By: #### C BC ####[facility] Seuuaxscti[address] [place], [place] [address]DrSkylar Leal Basophils/100 WBC (Bld) 0.5 % Normal 0.2-2.0 [facility] Comment on above: Performed By: #### C BC ####[facility] Ebzdizzmzi0639 [place] [phone]. Farhat Leal EO # 0.3 103/ul Normal 0.0-0.7 [facility] Comment on above: Performed By: #### C BC ####[facility] Midqhtmjqh3[address] [place] [address]Dr. Farhat Leal Eosinophils/100 WBC (Bld) 4.3 % Normal 0.9-7.0 [facility] Comment on above: Performed By: #### C BC ####[facility] Esheeotlad[address] [place], [place] [address]Dr. Farhat Leal Erythrocyte distribution width (RBC) [Ratio] 14.1 % Normal 11.0-15.0 [facility] Comment on above: Performed By: #### C BC ####[facility] Y[address]kvjxowp[address] [place], [place] [address]Dr. Farhat Leal Hematocrit (Bld) [Volume fraction] 35.4 % Critically low 42.0-54.0 [facility] Comment on above: Performed By: #### C BC ####[facility] Ydvqfdttcx[address] [place], [place] [address]Dr. Farhat Leal Hemoglobin (Bld) [Mass/Vol] 11.8 g/dL Critically low 14.0-18.0 [facility] Comment on above: Performed By: #### C BC ####[facility] Uhihenywrr[address] [place], [place] [address]Dr. Farhat Lela IG # 0.02 10e3/ul Normal 0.00-0.03 [facility] Comment on above: Performed By: #### C BC ####[facility] Gleujnjfxl[address] [place] [address]Dr. Farhat Leal IG % 0.3 % Normal 0.0-0.5 [facility] Comment on above: Performed By: #### C BC ####[facility] Jysnnneznx34[address] [place], [place] [address]Dr. Farhat Leal LYMPH # 2.4 103/ul Normal 1.2-3.8 [facility] Comment on above: Performed By: #### C BC ####[facility] Kpvpvevyzo35[address] [place] [phone]. Farhat Leal Lymphocytes/100 WBC (Bld) 40.4 % Normal 20.5-60.0 [facility] Comment on above: Performed By: #### C BC ####[facility] Hohmsbquxv50[address] [place] [phone]. Farhat Elvis MANUAL DIFF REQ NO Normal [facility] Comment on above: Performed By: #### C BC ####[facility] Jvxitmfqhl6730 [place] [phone]. Farhat Elvis MCH (RBC) [Entitic mass] 31.0 pg Normal 25.9-34.0 [facility] Comment on above: Performed By: #### C BC ####[facility] Zfcsdzqsqm9648 [place] [phone]. Farhat Elvis MCHC (RBC) [Mass/Vol] 33.3 g/dL Normal 29.9-35.2 [facility] Comment on above: Performed By: #### C BC ####[facility] Gvkciwljao8[address] [place] [phone]. Farhat Elvis MCV (RBC) [Entitic vol] 92.9 fL Normal 80.0-94.0 [facility] Comment on above: Performed By: #### C BC ####[facility] Qonegfyqdb5080 [place] [phone]. Madelynlorri Elvis MONO # 0.7 103/ul Normal 0.3-0.8 [facility] Comment on above: Performed By: #### C BC ####[facility] Qhkzvaglkc6712 [place] [phone]. Madelynlorri Leal Monocytes/100 WBC (Bld) 11.1 % Normal 1.7-12.0 [facility] Comment on above: Performed By: #### C BC ####[facility] Rgxteknnec62[address] [place], [place] [address]Dr. Farhat Leal NEUT # 2.6 103/ul Normal 1.4-6.5 [facility] Comment on above: Performed By: #### C BC ####[facility] Igjbzsljvw7652 [place] [phone]. Farhat Leal Neutrophils/100 WBC (Bld) 43.4 % Normal 43.0-75.0 [facility] Comment on above: Performed By: #### C BC ####[facility] Ubxjqucbix6466 [place] [phone]. Farhat Leal Platelet mean volume (Bld) [Entitic vol] 10.4 fL Normal 9.5-13.5 [facility] Comment on above: Performed By: #### C BC ####[facility] Ruvnnuttlx0049 [place] [phone]. Farhat Elvis PLT 211 103/ul Normal 150-450 [facility] Comment on above: Performed By: #### C BC ####[facility] Npujpqwmhi8876 [place] [phone]. Farhat Leal RBC 3.81 106/ul Critically low 4.70-6.10 [facility] Comment on above: Performed By: #### C BC ####[facility] Upijhikrcw9088 [place] [phone]. Farhat Leal WBC 6.0 103/ul Normal 4.0-11.0 [facility] Comment on above: Performed By: #### C BC ####[facility] Eiqqnecdsm8702 [place] [phone]. Farhat Leal PROF 14(COMP METB)on 023 Albumin [Mass/Vol] 2.6 g/dL Critically low 3.4-5.0 [facility] Comment on above: Performed By: #### C MP ####[facility] Xwdekthznw1013 [place] [phone]. Farhat Leal Albumin/Globulin [Mass ratio] 0.8 {ratio} Normal [facility] Comment on above: Performed By: #### C MP ####[facility] Xgjdoqfstw3396 [place] [phone]. Farhat Elvis ALP [Catalytic activity/Vol] 64 U/L Normal 46-116 [facility] Comment on above: Performed By: #### C MP ####[facility] Xgqwtgissd0914 [place], [place] [address]Oa. Farhat Leal ALT [Catalytic activity/Vol] 18 U/L Normal 16-63 [facility] Comment on above: Performed By: #### C MP ####[facility] Bvbxzdryah8068 [place], [place] [address]Lq. Farhat Leal Anion gap [Moles/Vol] 10.2 mmol/L Normal [facility] Comment on above: Performed By: #### C MP ####[facility] Vookesftqm9910 [place] [phone]. Farhat Leal AST [Catalytic activity/Vol] 16 U/L Normal 15-37 [facility] Comment on above: Performed By: #### C MP ####[facility] Buiszjqjfh0390 [place] [phone]. Farhat Leal Bilirubin [Mass/Vol] 0.6 mg/dL Normal 0.2-1.0 [facility] Comment on above: Performed By: #### C MP ####[facility] Qcajdfiqne5727 [place] [phone]. Farhat Leal Calcium [Mass/Vol] 8.5 mg/dL Normal 8.5-10.1 [facility] Comment on above: Performed By: #### C MP ####[facility] Skrkasblpf6476 [place] [phone]. Farhat Leal Chloride [Moles/Vol] 106 mmol/L Normal 98-107 [facility] Comment on above: Performed By: #### C MP ####[facility] Iqkrhcywbx8064 [place] [phone]. Farhat Leal CO2 [Moles/Vol] 29.8 mmol/L Normal 21.0-32.0 [facility] Comment on above: Performed By: #### C MP ####[facility] Melhtlyxnp2801 [place] [phone]. Farhat Leal Creatinine [Mass/Vol] 1.60 mg/dL Critically high 0.70-1.30 [facility] Comment on above: Performed By: #### C MP ####[facility] Vkxwuihojd5410 [place], [place] [address]Ia. Farhat Leal EGFR-AF MOZAMBICAN 51 mL/min/1.73m2 Critically low >=60 [facility] Comment on above: Performed By: #### C MP ####[facility] Xwnwlafwij7891 [place] [phone]. Farhat Leal EGFR-NON AF MOZAMBICAN 42 mL/min/1.73m2 Critically low >=60 [facility] Comment on above: Performed By: #### C MP ####[facility] Khhczmcvoc3046 [place] [phone]. Farhat Leal Globulin (S) [Mass/Vol] 3.4 g/dL Normal [facility] Comment on above: Performed By: #### C MP ####[facility] Tcbodxxdnq3229 [place] [phone]. Farhat Leal Glucose [Mass/Vol] 178 mg/dL Critically high 74-106 [facility] Comment on above: Performed By: #### C MP ####[facility] Juktdelaai7529 [place] [phone]. Farhat Leal Potassium [Moles/Vol] 4.0 mmol/L Normal 3.5-5.1 [facility] Comment on above: Performed By: #### C MP ####[facility] Rnaddehnpe8246 [place] [phone]. Farhat Leal Protein [Mass/Vol] 6.0 g/dL Critically low 6.4-8.2 [facility] Comment on above: Performed By: #### C MP ####[facility] Dxxtsjmtlu8341 [place] [phone]. Farhat Leal Sodium [Moles/Vol] 142 mmol/L Normal 136-145 [facility] Comment on above: Performed By: #### C MP ####[facility] Hoqgggydob2402 [place] [phone]. Farhat Leal Urea nitrogen [Mass/Vol] 49.0 mg/dL Critically high 7.0-18.0 [facility] Comment on above: Performed By: #### C MP ####[facility] Yjclpfinyb8403 [place] [address]Dr. Farhat Leal Urea nitrogen/Creatinine [Mass ratio] 30.6 mg/mg Normal [facility] Comment on above: Performed By: #### C MP ####[facility] Tuvrvyyepm80[address] [place] [address]Dr. Farhat Leal PROTIMEon 06-26-2022 INR Coag (PPP) [Relative time] 1.77 {INR} Normal [facility] Comment on above: Performed By: #### P T ####[facility] Nmqpsufakw[address] [place], [place] [address]Dr. Farhat Leal INR GUIDELINES SEE BELOW Normal [facility] Comment on above: Result Comment: MALINA RED INR: 2.0 - 3.0 CONDITIONS NOT LISTED BELOW 2.5 - 3.5 FOR PROSTHETIC HEART VALVE REPLACEMENT 2.5 - 3.5 RECURRENT THROMBOSIS Performed By: #### P T ####[facility] Bmetbwjmla20[address] [place], [place] [address]Dr. Farhat Leal PT Coag (PPP) [Time] 18.2 s Critically high 9.0-11.6 [facility] Comment on above: Performed By: #### P T ####[facility] Lmuccceuqg7[address] [place], [place] [address]Dr. Farhat Leal FK506 (TACROLIMUS) WHOLE BLO ODon 06-22-2022 Tacrolimus (FK506), Blood 24.5 ng/mL Invalid Interpretation Code 2.0-20.0 [facility] Comment on above: Result Comment: Trou gh (immediately following transplant) 15.0 . Trough (steady state, 2 weeks or more after transplant): 3.0 - 8.0 . Performed by LC-MS/MS technology.Patient drug level exceeds published reference range. Evaluateclinically for signs of potential toxicity. Performed By: #### F K506T ####[facility] Bakljuqiwy36[address] [place], [place] [address]Dr. Farhat Leal CBC AUTO DIFFon 06-19-2022 BASO # 0.1 103/ul Normal 0.0-0.1 [facility] Comment on above: Performed By: #### C BC ####[facility] Ahgoohohzi0206 [place] [phone]. Farhat Leal Basophils/100 WBC (Bld) 0.7 % Normal 0.2-2.0 [facility] Comment on above: Performed By: #### C BC ####[facility] Fezwpjzcfw6761 [place] [phone]. Farhat Leal EO # 0.4 103/ul Normal 0.0-0.7 [facility] Comment on above: Performed By: #### C BC ####[facility] Pbjvojzoxt[address] [place], [place] [id number]. Farhat Leal Eosinophils/100 WBC (Bld) 5.7 % Normal 0.9-7.0 [facility] Comment on above: Performed By: #### C BC ####[facility] Opjrehkalw4715[address] [place], [place] [address]Dr. Farhat Leal Erythrocyte distribution width (RBC) [Ratio] 14.5 % Normal 11.0-15.0 [facility] Comment on above: Performed By: #### C BC ####[facility] Kuguiexfcy3224[address] [place], [place] [address]Dr. Farhat Leal Hematocrit (Bld) [Volume fraction] 34.1 % Critically low 42.0-54.0 [facility] Comment on above: Performed By: #### C BC ####[facility] Pwmgsgaxog[address] [place], [place] [id number]. Farhat Leal Hemoglobin (Bld) [Mass/Vol] 11.3 g/dL Critically low 14.0-18.0 [facility] Comment on above: Performed By: #### C BC ####[facility] Zkngtsevkn[address] [place], [place] [address]Dr. Farhat Leal IG # 0.02 10e3/ul Normal 0.00-0.03 [facility] Comment on above: Performed By: #### C BC ####[facility] Ravhuwrjyg[address] [place], [place] [address]Dr. Farhat Leal IG % 0.3 % Normal 0.0-0.5 [facility] Comment on above: Performed By: #### C BC ####[facility] Arbmpgnkzp1173 [place] [phone]. Farhat Leal LYMPH # 3.1 103/ul Normal 1.2-3.8 [facility] Comment on above: Performed By: #### C BC ####[facility] Cqraolwpni0268 [place] [phone]. Farhat Elvis Lymphocytes/100 WBC (Bld) 40.6 % Normal 20.5-60.0 [facility] Comment on above: Performed By: #### C BC ####[facility] Ifjuilzbvg6831 [place] [phone]. Farhat Elvis MANUAL DIFF REQ NO Normal [facility] Comment on above: Performed By: #### C BC ####[facility] Qyqgohtiov1095 [place] [phone]. Farhat Elvis MCH (RBC) [Entitic mass] 30.6 pg Normal 25.9-34.0 [facility] Comment on above: Performed By: #### C BC ####[facility] Voniqpnfrz7053 [place] [phone]. Farhat Leal MCHC (RBC) [Mass/Vol] 33.1 g/dL Normal 29.9-35.2 [facility] Comment on above: Performed By: #### C BC ####[facility] Ewjaioaqrr8336 [place] [phone]. Farhat Elvis MCV (RBC) [Entitic vol] 92.4 fL Normal 80.0-94.0 [facility] Comment on above: Performed By: #### C BC ####[facility] Acghdsnbqf2282 [place] [phone]. Farhat Leal MONO # 0.8 103/ul Normal 0.3-0.8 [facility] Comment on above: Performed By: #### C BC ####[facility] Pzzofsiixv6646 [place] [phone]. Farhat Elvis Monocytes/100 WBC (Bld) 10.6 % Normal 1.7-12.0 [facility] Comment on above: Performed By: #### C BC ####[facility] Pxlmybdgwu5754 [place] [phone]. Farhat Leal NEUT # 3.2 103/ul Normal 1.4-6.5 [facility] Comment on above: Performed By: #### C BC ####[facility] Rmllojbvac0401 [place] [phone]. Farhat Leal Neutrophils/100 WBC (Bld) 42.1 % Critically low 43.0-75.0 [facility] Comment on above: Performed By: #### C BC ####[facility] Jtrmvqqela1943 [place] [phone]. Farhat Leal Platelet mean volume (Bld) [Entitic vol] 10.6 fL Normal 9.5-13.5 [facility] Comment on above: Performed By: #### C BC ####[facility] Flzhrhxcer3267 [place] [phone]. Farhat Elvis PLT 187 103/ul Normal 150-450 [facility] Comment on above: Performed By: #### C BC ####[facility] Ciysilruou2951 [place] [phone]. Farhat Leal RBC 3.69 106/ul Critically low 4.70-6.10 [facility] Comment on above: Performed By: #### C BC ####[facility] Xhafxojgyt6073 [place] [phone]. Farhat Leal WBC 7.7 103/ul Normal 4.0-11.0 [facility] Comment on above: Performed By: #### C BC ####[facility] Wrljfprawb6325 [place] [phone]. Farhat Leal PROF 14(COMP METB)on 023 Albumin [Mass/Vol] 2.5 g/dL Critically low 3.4-5.0 [facility] Comment on above: Performed By: #### C MP ####[facility] Ttbdbuhzhr6421 [place] [phone]. Madelynlorri Elvis Albumin/Globulin [Mass ratio] 0.8 {ratio} Normal [facility] Comment on above: Performed By: #### C MP ####[facility] Vtzkcslxht0032 [place] [phone]. Farhat Leal ALP [Catalytic activity/Vol] 60 U/L Normal 46-116 [facility] Comment on above: Performed By: #### C MP ####[facility] Nmlluuasah7828 [place] [phone]. Farhat Leal ALT [Catalytic activity/Vol] 16 U/L Normal 16-63 [facility] Comment on above: Performed By: #### C MP ####[facility] Eiggxwmhbe5818 [place] [phone]. Farhat Leal Anion gap [Moles/Vol] 9.1 mmol/L Normal [facility] Comment on above: Performed By: #### C MP ####[facility] Bgngsxrztj9884 [place] [address]Dr. Farhat Leal AST [Catalytic activity/Vol] 31 U/L Normal 15-37 [facility] Comment on above: Performed By: #### C MP ####[facility] Fxdinurheh2442 [place] [address]Dr. Farhat Leal Bilirubin [Mass/Vol] 0.3 mg/dL Normal 0.2-1.0 [facility] Comment on above: Performed By: #### C MP ####[facility] Cjiubjcsxy7801 [place] [phone]. Farhat Leal Calcium [Mass/Vol] 8.2 mg/dL Critically low 8.5-10.1 [facility] Comment on above: Performed By: #### C MP ####[facility] Keqfnibcux7467 [place] [phone]. Farhat Leal Chloride [Moles/Vol] 106 mmol/L Normal 98-107 [facility] Comment on above: Performed By: #### C MP ####[facility] Elspnckvcy8595 [place] [phone]. Farhat Leal CO2 [Moles/Vol] 27.0 mmol/L Normal 21.0-32.0 [facility] Comment on above: Performed By: #### C MP ####[facility] Nyeqzeonnq1533 [place] [phone]. Farhat Leal Creatinine [Mass/Vol] 1.51 mg/dL Critically high 0.70-1.30 [facility] Comment on above: Performed By: #### C MP ####[facility] Vcmidcojje1203 [place], [place] [address]De. Farhat Leal EGFR-AF MOZAMBICAN 55 mL/min/1.73m2 Critically low >=60 [facility] Comment on above: Performed By: #### C MP ####[facility] Iybixqpfle9602 [place] [phone]. Farhat Leal EGFR-NON AF MOZAMBICAN 45 mL/min/1.73m2 Critically low >=60 [facility] Comment on above: Performed By: #### C MP ####[facility] Jxyhjufedj3560 [place] [phone]. Farhat Leal Globulin (S) [Mass/Vol] 3.2 g/dL Normal [facility] Comment on above: Performed By: #### C MP ####[facility] Qsnvxboved4409 [place] [phone]. Farhat Leal Glucose [Mass/Vol] 165 mg/dL Critically high 74-106 [facility] Comment on above: Performed By: #### C MP ####[facility] Jrrprwihgt0553 [place] [phone]. Farhat Leal Potassium [Moles/Vol] 4.1 mmol/L Normal 3.5-5.1 [facility] Comment on above: Performed By: #### C MP ####[facility] Lgworgpnee6333 [place] [phone]. Farhat Leal Protein [Mass/Vol] 5.7 g/dL Critically low 6.4-8.2 [facility] Comment on above: Performed By: #### C MP ####[facility] Cbazjmnprr5739 [place] [phone]. Farhat Leal Sodium [Moles/Vol] 138 mmol/L Normal 136-145 [facility] Comment on above: Performed By: #### C MP ####[facility] Jjymeyyvzw0804 [place] [address]Dr. Farhat Leal Urea nitrogen [Mass/Vol] 51.0 mg/dL Critically high 7.0-18.0 [facility] Comment on above: Performed By: #### C MP ####[facility] Nxdohygafa[address] [place], [place] [address]Dr. Farhat Leal Urea nitrogen/Creatinine [Mass ratio] 33.8 mg/mg Normal [facility] Comment on above: Performed By: #### C MP ####[facility] Dbmngotdky768[address] [place], [place] [address]Dr. Farhat Leal FK506 (TACROLIMUS) WHOLE BLO ODon 06-15-2022 Tacrolimus (FK506), Blood 16.4 ng/mL Normal 2.0-20.0 [facility] Comment on above: Result Comment: Trou gh (immediately following transplant) 15.0 . Trough (steady state, 2 weeks or more after transplant): 3.0 - 8.0 . Performed by LC-MS/MS technology. Performed By: #### F K506T ####[facility] Arczzswjig[address] [place], [place] [address]Dr. Farhat Leal PROTIMEon 06-15-2022 INR Coag (PPP) [Relative time] 1.64 {INR} Normal [facility] Comment on above: Performed By: #### P T ####[facility] Fcuszohqje39[address] [place], [place] [address]Dr. Farhat Leal INR GUIDELINES SEE BELOW Normal [facility] Comment on above: Result Comment: MALINA RED INR: 2.0 - 3.0 CONDITIONS NOT LISTED BELOW 2.5 - 3.5 FOR PROSTHETIC HEART VALVE REPLACEMENT 2.5 - 3.5 RECURRENT THROMBOSIS Performed By: #### P T ####[facility] Kvolacihcs[address] [place], [place] [address]Dr. Farhat Leal PT Coag (PPP) [Time] 16.9 s Critically high 9.0-11.6 [facility] Comment on above: Performed By: #### P T ####[facility] Fizhchspap26[address] [place], [place] [address]Dr. Farhat Leal CBC AUTO DIFFon 06-12-2022 BASO # 0.0 103/ul Normal 0.0-0.1 [facility] Comment on above: Performed By: #### C BC ####[facility] Zzenguhzql33[address] [place], [place] [address]Dr. Farhat Leal Basophils/100 WBC (Bld) 0.4 % Normal 0.2-2.0 [facility] Comment on above: Performed By: #### C BC ####[facility] Ztrluacggx6524[address] [place], [place] [address]Dr. Farhat Leal EO # 0.4 103/ul Normal 0.0-0.7 [facility] Comment on above: Performed By: #### C BC ####[facility] Aqtukbtsgz3052[address] [place], [place] [address]Dr. Farhat Leal Eosinophils/100 WBC (Bld) 5.4 % Normal 0.9-7.0 [facility] Comment on above: Performed By: #### C BC ####[facility] Fpvvkwxlkc52[address] [place], [place] [address]Dr. Farhat Leal Erythrocyte distribution width (RBC) [Ratio] 14.7 % Normal 11.0-15.0 [facility] Comment on above: Performed By: #### C BC ####[facility] Ojuhaxfmba64[address] [place], [place] [address]Dr. Farhat Leal Hematocrit (Bld) [Volume fraction] 34.8 % Critically low 42.0-54.0 [facility] Comment on above: Performed By: #### C BC ####[facility] Hqdtgbyulq7[address] [place], [place] [address]Dr. Farhat Leal Hemoglobin (Bld) [Mass/Vol] 11.7 g/dL Critically low 14.0-18.0 [facility] Comment on above: Performed By: #### C BC ####[facility] Zicvoeqmhf1806[address] [place], [place] [address]Dr. Madelynlorri Leal IG # 0.02 10e3/ul Normal 0.00-0.03 [facility] Comment on above: Performed By: #### C BC ####[facility] Tefxcsbqvn2244 [place] [phone]. Farhat Leal IG % 0.3 % Normal 0.0-0.5 [facility] Comment on above: Performed By: #### C BC ####[facility] Mtcjfmmzcr1864 [place] [address]Dr. Farhat Leal LYMPH # 2.5 103/ul Normal 1.2-3.8 [facility] Comment on above: Performed By: #### C BC ####[facility] Gsbshpqhsq5456 [place] [address]Dr. Farhat Leal Lymphocytes/100 WBC (Bld) 36.8 % Normal 20.5-60.0 [facility] Comment on above: Performed By: #### C BC ####[facility] Lihionidua7830 [place] [address]Dr. Farhat Leal MANUAL DIFF REQ NO Normal [facility] Comment on above: Performed By: #### C BC ####[facility] Phcjdxqliq7444 [place] [address]Dr. Farhat Elvis MCH (RBC) [Entitic mass] 30.9 pg Normal 25.9-34.0 [facility] Comment on above: Performed By: #### C BC ####[facility] Xwleykbbpx[address] [place], [place] [address]Dr. Farhat Elvis MCHC (RBC) [Mass/Vol] 33.6 g/dL Normal 29.9-35.2 [facility] Comment on above: Performed By: #### C BC ####[facility] Grdgihlivp7447 [place] [address]Dr. Farhat Leal MCV (RBC) [Entitic vol] 91.8 fL Normal 80.0-94.0 [facility] Comment on above: Performed By: #### C BC ####[facility] Gkeeexqyts[address] [place], [place] [address]Dr. Farhat Leal MONO # 0.8 103/ul Normal 0.3-0.8 [facility] Comment on above: Performed By: #### C BC ####[facility] [address]cjyvbliti[address] [place], [place] [address]Dr. Farhat Leal Monocytes/100 WBC (Bld) 11.9 % Normal 1.7-12.0 [facility] Comment on above: Performed By: #### C BC ####[facility] [address] [place] [address]Dr. Farhat Leal NEUT # 3.1 103/ul Normal 1.4-6.5 [facility] Comment on above: Performed By: #### C BC ####[facility] Vopzskwknl[address] [place] [address]Dr. Farhat Leal Neutrophils/100 WBC (Bld) 45.2 % Normal 43.0-75.0 [facility] Comment on above: Performed By: #### C BC ####[facility] Ddazavnftm[address] [place] [address]Dr. Farhat Leal Platelet mean volume (Bld) [Entitic vol] 10.5 fL Normal 9.5-13.5 [facility] Comment on above: Performed By: #### C BC ####[facility] [address]wbzdwzj[address] [place] [address]Dr. Farhat Leal PLT 175 103/ul Normal 150-450 [facility] Comment on above: Performed By: #### C BC ####[facility] Eamuxdnhyh[address] [place] [address]Dr. Farhat Leal RBC 3.79 106/ul Critically low 4.70-6.10 [facility] Comment on above: Performed By: #### C BC ####[facility] Uannxnktpc[address] [place] [address]Dr. Farhat Leal WBC 6.8 103/ul Normal 4.0-11.0 [facility] Comment on above: Performed By: #### C BC ####[facility] [address]wlfmdcutt[address] [place] [address]Dr. Farhat Leal MAGNESIUMon 06-12-2022 Magnesium [Mass/Vol] 1.6 mg/dL Critically low 1.8-2.4 [facility] Comment on above: Performed By: #### C MP, MG, PHOS ####[facility] Xvrvqawceq[address] [place] [address]Dr. Farhat Leal PHOSPHORUSon 06-12-2022 Phosphate [Mass/Vol] 3.8 mg/dL Normal 2.6-4.7 [facility] Comment on above: Performed By: #### C MP, MG, PHOS ####[facility] T[address]zrzrjza[address] [place] [address]Dr. Farhat Leal PROF 14(COMP METB)on 023 Albumin [Mass/Vol] 2.6 g/dL Critically low 3.4-5.0 [facility] Comment on above: Performed By: #### C MP, MG, PHOS ####[facility] Rrrwyxsieb[address] [place], [place] [address]Dr. Farhat Leal Albumin/Globulin [Mass ratio] 0.8 {ratio} Normal [facility] Comment on above: Performed By: #### C MP, MG, PHOS ####[facility] Hqvnnxxxrd[address] [place], [place] [address]Dr. Farhat Leal ALP [Catalytic activity/Vol] 64 U/L Normal 46-116 [facility] Comment on above: Performed By: #### C MP, MG, PHOS ####[facility] Uaykepzjad[address] [place], [place] [address]Dr. Farhat Leal ALT [Catalytic activity/Vol] 18 U/L Normal 16-63 [facility] Comment on above: Performed By: #### C MP, MG, PHOS ####[facility] Llctaefsjn[address] [place], [place] [address]Dr. Farhat Leal Anion gap [Moles/Vol] 12.9 mmol/L Normal [facility] Comment on above: Performed By: #### C MP, MG, PHOS ####[facility] Qqvepwrxrv4[address] [place], [place] [address]Dr. Farhat Leal AST [Catalytic activity/Vol] 18 U/L Normal 15-37 [facility] Comment on above: Performed By: #### C MP, MG, PHOS ####[facility] Lxpudxvquh26[address] [place], [place] [address]Dr. Farhat Leal Bilirubin [Mass/Vol] 0.4 mg/dL Normal 0.2-1.0 [facility] Comment on above: Performed By: #### C MP, MG, PHOS ####[facility] Nwsgwhdrjf[address] [place] [address]Dr. Farhat Leal Calcium [Mass/Vol] 8.7 mg/dL Normal 8.5-10.1 [facility] Comment on above: Performed By: #### C MP, MG, PHOS ####[facility] Wyyowhdznt[address] [place], [place] [address]Dr. Farhat Leal Chloride [Moles/Vol] 105 mmol/L Normal 98-107 [facility] Comment on above: Performed By: #### C MP, MG, PHOS ####[facility] Nengjauzyw[address] [place], [place] [address]Dr. Farhat Leal CO2 [Moles/Vol] 27.9 mmol/L Normal 21.0-32.0 [facility] Comment on above: Performed By: #### C MP, MG, PHOS ####[facility] Yvygejaddx4[address] [place], [place] [address]Dr. Farhat Leal Creatinine [Mass/Vol] 1.53 mg/dL Critically high 0.70-1.30 [facility] Comment on above: Performed By: #### C MP, MG, PHOS ####[facility] Ipcmdvhoav45[address] [place], [place] [address]Dr. Farhat Leal EGFR-AF MOZAMBICAN 54 mL/min/1.73m2 Critically low >=60 [facility] Comment on above: Performed By: #### C MP, MG, PHOS ####[facility] Txvabcqlaq[address] [place], [place] [address]Dr. Farhat Leal EGFR-NON AF MOZAMBICAN 44 mL/min/1.73m2 Critically low >=60 [facility] Comment on above: Performed By: #### C MP, MG, PHOS ####[facility] Zicpwmhgfq[address] [place], [place] [address]Dr. Farhat Leal Globulin (S) [Mass/Vol] 3.4 g/dL Normal [facility] Comment on above: Performed By: #### C MP, MG, PHOS ####[facility] Wqtgrpwzei380[address] [place] [address]Dr. Farhat Leal Glucose [Mass/Vol] 179 mg/dL Critically high 74-106 T [facility] Comment on above: Performed By: #### C MP, MG, PHOS ####[facility] Pswtjifycu4[address] [place] [address]Dr. Farhat Leal Potassium [Moles/Vol] 3.8 mmol/L Normal 3.5-5.1 [facility] Comment on above: Performed By: #### C MP, MG, PHOS ####[facility] Eurkjctlag6630 [place] [address]Dr. Farhat Leal Protein [Mass/Vol] 6.0 g/dL Critically low 6.4-8.2 [facility] Comment on above: Performed By: #### C MP, MG, PHOS ####[facility] Hlkdeqrsld6[address] [place], [place] [address]Dr. Farhat Leal Sodium [Moles/Vol] 142 mmol/L Normal 136-145 [facility] Comment on above: Performed By: #### C MP, MG, PHOS ####[facility] Buljjfcrbg95[address] [place] [address]Dr. Farhat Leal Urea nitrogen [Mass/Vol] 56.0 mg/dL Critically high 7.0-18.0 [facility] Comment on above: Performed By: #### C MP, MG, PHOS ####[facility] Mutgamomts4786[address] [place], [place] [address]Dr. Farhat Leal Urea nitrogen/Creatinine [Mass ratio] 36.6 mg/mg Normal [facility] Comment on above: Performed By: #### C MP, MG, PHOS ####[facility] Jscbxtwddd86[address] [place] [address]Dr. Farhat Leal FK506 (TACROLIMUS) WHOLE BLO ODon 06-08-2022 Tacrolimus (FK506), Blood 13.2 ng/mL Normal 2.0-20.0 [facility] Comment on above: Result Comment: Trou gh (immediately following transplant) 15.0 . Trough (steady state, 2 weeks or more after transplant): 3.0 - 8.0 . Performed by LC-MS/MS technology. Performed By: #### F K506T ####[facility] Bysqdqtqnb[address] [place] [address]Dr. Farhat Leal CBC AUTO DIFFon 06-05-2022 BASO # 0.1 103/ul Normal 0.0-0.1 [facility] Comment on above: Performed By: #### C BC ####[facility] Tvqsoqnopx[address] [place], [place] [address]Dr. Madelynolrri Leal Basophils/100 WBC (Bld) 0.8 % Normal 0.2-2.0 [facility] Comment on above: Performed By: #### C BC ####[facility] Rzlhsrsegw[address] [place], [place] [address]Dr. Farhat Leal EO # 0.3 103/ul Normal 0.0-0.7 [facility] Comment on above: Performed By: #### C BC ####[facility] Dizaouksxz[address] [place], [place] [address]Dr. Madelynlorri Leal Eosinophils/100 WBC (Bld) 4.7 % Normal 0.9-7.0 [facility] Comment on above: Performed By: #### C BC ####[facility] Fhuxhupadi60[address] [place], [place] [address]Dr. Farhat Leal Erythrocyte distribution width (RBC) [Ratio] 15.1 % Critically high 11.0-15.0 [facility] Comment on above: Performed By: #### C BC ####[facility] Ifigubszge25[address] [place], [place] [address]Dr. Farhat Leal Hematocrit (Bld) [Volume fraction] 35.5 % Critically low 42.0-54.0 [facility] Comment on above: Performed By: #### C BC ####[facility] Zjrckajjho[address] [place], [place] [address]Dr. Farhat Leal Hemoglobin (Bld) [Mass/Vol] 11.7 g/dL Critically low 14.0-18.0 [facility] Comment on above: Performed By: #### C BC ####[facility] Tkitbeusle[address] [place] [phone]. Madelynlorri Leal IG # 0.01 10e3/ul Normal 0.00-0.03 [facility] Comment on above: Performed By: #### C BC ####[facility] Bzldglcrxg2574 [place] [phone]. Farhat Leal IG % 0.2 % Normal 0.0-0.5 [facility] Comment on above: Performed By: #### C BC ####[facility] Cbwysmoord[address] [place] [address]Dr. Farhat Leal LYMPH # 2.1 103/ul Normal 1.2-3.8 [facility] Comment on above: Performed By: #### C BC ####[facility] Wggnwsjjuq8203 [place] [address]Dr. Farhat Leal Lymphocytes/100 WBC (Bld) 34.5 % Normal 20.5-60.0 [facility] Comment on above: Performed By: #### C BC ####[facility] Wnyelljorr25[address] [place] [address]Dr. Madelynlorir Leal MANUAL DIFF REQ NO Normal [facility] Comment on above: Performed By: #### C BC ####[facility] Fvhqsrdopt8062 [place] [address]Dr. Farhat Leal MCH (RBC) [Entitic mass] 30.6 pg Normal 25.9-34.0 [facility] Comment on above: Performed By: #### C BC ####[facility] Hnopmcqnfp[address] [place] [address]Dr. Farhat Leal MCHC (RBC) [Mass/Vol] 33.0 g/dL Normal 29.9-35.2 [facility] Comment on above: Performed By: #### C BC ####[facility] Hjyxjyextb[address] [place] [address]Dr. Madelynlorri Leal MCV (RBC) [Entitic vol] 92.9 fL Normal 80.0-94.0 [facility] Comment on above: Performed By: #### C BC ####[facility] Ayqmqvqdgk6605 [place] [phone]. Farhat Leal MONO # 0.7 103/ul Normal 0.3-0.8 [facility] Comment on above: Performed By: #### C BC ####[facility] Wpsuxqjzgq7704 [place] [phone]. Farhat Leal Monocytes/100 WBC (Bld) 11.4 % Normal 1.7-12.0 [facility] Comment on above: Performed By: #### C BC ####[facility] Wbjwkxqalb1222 [place] [phone]. Farhat Leal NEUT # 2.9 103/ul Normal 1.4-6.5 [facility] Comment on above: Performed By: #### C BC ####[facility] Yiawasvujk35[address] [place] [phone]. Farhat Leal Neutrophils/100 WBC (Bld) 48.4 % Normal 43.0-75.0 [facility] Comment on above: Performed By: #### C BC ####[facility] Wdszkihwkt0615 [place] [phone]. Farhat Leal Platelet mean volume (Bld) [Entitic vol] 10.7 fL Normal 9.5-13.5 [facility] Comment on above: Performed By: #### C BC ####[facility] Qbyrgwfspg9071 [place] [phone]. Farhat Leal PLT 185 103/ul Normal 150-450 [facility] Comment on above: Performed By: #### C BC ####[facility] Kxcxttapsu5503 [place] [phone]. Farhat Leal RBC 3.82 106/ul Critically low 4.70-6.10 [facility] Comment on above: Performed By: #### C BC ####[facility] Ydwoaoximv8153 [place] [phone]. Farhat Leal WBC 6.0 103/ul Normal 4.0-11.0 [facility] Comment on above: Performed By: #### C BC ####[facility] Y[address]cp[address] [place], [place] [id number]. Farhat Leal MAGNESIUMon 06-05-2022 Magnesium [Mass/Vol] 1.9 mg/dL Normal 1.8-2.4 [facility] Comment on above: Performed By: #### P HOS, MG ####[facility] Iwrkvpfkmj78[address] [place] [address]Dr. Farhat Leal PHOSPHORUSon 06-05-2022 Phosphate [Mass/Vol] 4.4 mg/dL Normal 2.6-4.7 [facility] Comment on above: Performed By: #### P HOS, MG ####[facility] Gofohlmvrc[address] [place] [address]Dr. Farhat Leal PROTIMEon 06-05-2022 INR Coag (PPP) [Relative time] 2.16 {INR} Normal [facility] Comment on above: Performed By: #### P T ####[facility] [address]ksxbgxrf[address] [place], [place] [address]Dr. Farhat Leal INR GUIDELINES SEE BELOW Normal [facility] Comment on above: Result Comment: MALINA RED INR: 2.0 - 3.0 CONDITIONS NOT LISTED BELOW 2.5 - 3.5 FOR PROSTHETIC HEART VALVE REPLACEMENT 2.5 - 3.5 RECURRENT THROMBOSIS Performed By: #### P T ####[facility] Bqyvoseifl[address] [place], [place] [address]Dr. Farhat Leal PT Coag (PPP) [Time] 21.9 s Critically high 9.0-11.6 [facility] Comment on above: Performed By: #### P T ####[facility] Ddfdyfduwe[address] [place], [place] [address]Dr. Farhat Leal FK506 (TACROLIMUS) WHOLE BLO ODon 06-01-2022 Tacrolimus (FK506), Blood 26.4 ng/mL Invalid Interpretation Code 2.0-20.0 [facility] Comment on above: Result Comment: Trou gh (immediately following transplant) 15.0 . Trough (steady state, 2 weeks or more after transplant): 3.0 - 8.0 . Performed by LC-MS/MS technology.Patient drug level exceeds published reference range. Evaluateclinically for signs of potential toxicity. Performed By: #### F K506T ####[facility] Skkqxsowom4422 [place] [phone]. Farhat Leal CBC AUTO DIFFon 05-29-2022 BASO # 0.0 103/ul Normal 0.0-0.1 [facility] Comment on above: Performed By: #### C BC ####[facility] Cgmrflfahg5229 [place] [address]Dr. Farhat Leal Basophils/100 WBC (Bld) 0.6 % Normal 0.2-2.0 [facility] Comment on above: Performed By: #### C BC ####[facility] Usuymsccao[address] [place], [place] [address]Dr. Farhat Leal EO # 0.3 103/ul Normal 0.0-0.7 [facility] Comment on above: Performed By: #### C BC ####[facility] Wpnmwyvcur7189[address] [place], [place] [address]Dr. Farhat Elvis Eosinophils/100 WBC (Bld) 4.7 % Normal 0.9-7.0 [facility] Comment on above: Performed By: #### C BC ####[facility] Szqqosrlbo[address] [place], [place] [address]Dr. Farhat Leal Erythrocyte distribution width (RBC) [Ratio] 15.3 % Critically high 11.0-15.0 [facility] Comment on above: Performed By: #### C BC ####[facility] Qotaujidys[address] [place], [place] [address]Dr. Farhat Leal Hematocrit (Bld) [Volume fraction] 36.6 % Critically low 42.0-54.0 [facility] Comment on above: Performed By: #### C BC ####[facility] Qbzbvswjws[address] [place], [place] [address]Dr. Farhat Leal Hemoglobin (Bld) [Mass/Vol] 12.3 g/dL Critically low 14.0-18.0 [facility] Comment on above: Performed By: #### C BC ####[facility] Oxousvpveu5[address] [place], [place] [address]Dr. Farhat Leal IG # 0.02 10e3/ul Normal 0.00-0.03 [facility] Comment on above: Performed By: #### C BC ####[facility] Znsovfwqdc8199 [place] [address]Dr. Farhat Leal IG % 0.3 % Normal 0.0-0.5 [facility] Comment on above: Performed By: #### C BC ####[facility] Ufdmutraif4480 [place] [address]Dr. Farhat Leal LYMPH # 2.8 103/ul Normal 1.2-3.8 [facility] Comment on above: Performed By: #### C BC ####[facility] Aryqqlymje3655 [place] [address]Dr. Farhat Leal Lymphocytes/100 WBC (Bld) 44.4 % Normal 20.5-60.0 [facility] Comment on above: Performed By: #### C BC ####[facility] Dahucvajax[address] [place], [place] [address]Dr. Farhat Leal MANUAL DIFF REQ NO Normal [facility] Comment on above: Performed By: #### C BC ####[facility] Mbefqxfotp3891 [place] [phone]. Farhat Leal MCH (RBC) [Entitic mass] 30.4 pg Normal 25.9-34.0 [facility] Comment on above: Performed By: #### C BC ####[facility] Xbwnafrlla6810 [place] [phone]. Farhat Leal MCHC (RBC) [Mass/Vol] 33.6 g/dL Normal 29.9-35.2 [facility] Comment on above: Performed By: #### C BC ####[facility] [address]rnht[address] [place], [place] [id number] Leal MCV (RBC) [Entitic vol] 90.4 fL Normal 80.0-94.0 [facility] Comment on above: Performed By: #### C BC ####[facility] Zorevudarb0614 [place] [address]DrSkylar Leal MONO # 0.7 103/ul Normal 0.3-0.8 [facility] Comment on above: Performed By: #### C BC ####[facility] Txcztcbwkv9088 [place] [phone]. Farhat Leal Monocytes/100 WBC (Bld) 10.7 % Normal 1.7-12.0 [facility] Comment on above: Performed By: #### C BC ####[facility] Drumyrynzn7199 [place] [phone]. Farhat Leal NEUT # 2.5 103/ul Normal 1.4-6.5 [facility] Comment on above: Performed By: #### C BC ####[facility] Cygojnudav3022 [place] [phone]. Farhat Leal Neutrophils/100 WBC (Bld) 39.3 % Critically low 43.0-75.0 [facility] Comment on above: Performed By: #### C BC ####[facility] Tlwkcvmugr3027 [place] [address]Dr. Farhat Leal Platelet mean volume (Bld) [Entitic vol] 10.5 fL Normal 9.5-13.5 [facility] Comment on above: Performed By: #### C BC ####[facility] Atavoyywdj0744 [place] [phone]. Farhat Leal PLT 190 103/ul Normal 150-450 [facility] Comment on above: Performed By: #### C BC ####[facility] Kuoaszkfqu7075 [place] [phone]. Farhat Leal RBC 4.05 106/ul Critically low 4.70-6.10 [facility] Comment on above: Performed By: #### C BC ####[facility] Hubvppdmhi5302 [place] [phone]. Farhat Leal WBC 6.4 103/ul Normal 4.0-11.0 [facility] Comment on above: Performed By: #### C BC ####[facility] Ukhyywnwps9030 [place] [phone] Leal PROF 14(COMP METB)on 023 Albumin [Mass/Vol] 2.5 g/dL Critically low 3.4-5.0 [facility] Comment on above: Performed By: #### C MP ####[facility] Ssbqgfvtdv01[address] [place] [address]Dr. Farhat Elvis Albumin/Globulin [Mass ratio] 0.8 {ratio} Normal [facility] Comment on above: Performed By: #### C MP ####[facility] Bjdykdyopw15[address] [place] [address]Dr. Farhat Elvis ALP [Catalytic activity/Vol] 61 U/L Normal 46-116 [facility] Comment on above: Performed By: #### C MP ####[facility] Vtxyihdmgl[address] [place], [place] [address]Dr. Madelynlorri Leal ALT [Catalytic activity/Vol] 16 U/L Normal 16-63 [facility] Comment on above: Performed By: #### C MP ####[facility] Xrgnkhttno6[address] [place], [place] [address]Dr. Farhat Leal Anion gap [Moles/Vol] 12.3 mmol/L Normal [facility] Comment on above: Performed By: #### C MP ####[facility] Zqldegqort07[address] [place], [place] [address]Dr. Farhat Elvis AST [Catalytic activity/Vol] 18 U/L Normal 15-37 [facility] Comment on above: Performed By: #### C MP ####[facility] Ofbrnkvcfo8298[address] [place], [place] [address]Dr. Farhat Leal Bilirubin [Mass/Vol] 0.5 mg/dL Normal 0.2-1.0 [facility] Comment on above: Performed By: #### C MP ####[facility] Udtixyzkty9[address] [place], [place] [address]Dr. Farhat Leal Calcium [Mass/Vol] 8.6 mg/dL Normal 8.5-10.1 [facility] Comment on above: Performed By: #### C MP ####[facility] Lhyvcnjkgf90[address] [place], [place] [address]Dr. Farhat Leal Chloride [Moles/Vol] 105 mmol/L Normal 98-107 [facility] Comment on above: Performed By: #### C MP ####[facility] Qaattxxjug1562 [place] [phone]. Farhat Leal CO2 [Moles/Vol] 28.6 mmol/L Normal 21.0-32.0 [facility] Comment on above: Performed By: #### C MP ####[facility] Vpbmoocpfx4604 [place] [phone]. Farhat Leal Creatinine [Mass/Vol] 1.47 mg/dL Critically high 0.70-1.30 [facility] Comment on above: Performed By: #### C MP ####[facility] Csdkggwhkr7982 [place] [phone]. Farhat Leal EGFR-AF MOZAMBICAN 56 mL/min/1.73m2 Critically low >=60 [facility] Comment on above: Performed By: #### C MP ####[facility] Igecxljvkt2260 [place] [address]Dr. Farhat Leal EGFR-NON AF MOZAMBICAN 46 mL/min/1.73m2 Critically low >=60 [facility] Comment on above: Performed By: #### C MP ####[facility] Tcwyegtakn3189 [place] [address]Dr. Farhat Leal Globulin (S) [Mass/Vol] 3.3 g/dL Normal [facility] Comment on above: Performed By: #### C MP ####[facility] Jdjypgwmkh8676 [place] [address]Dr. Farhat Leal Glucose [Mass/Vol] 164 mg/dL Critically high 74-106 [facility] Comment on above: Performed By: #### C MP ####[facility] Tjnowjgpox6061 [place] [phone]. Farhat Leal Potassium [Moles/Vol] 3.9 mmol/L Normal 3.5-5.1 [facility] Comment on above: Performed By: #### C MP ####[facility] Kkbfktvubg9508 [place] [phone]. Farhat Leal Protein [Mass/Vol] 5.8 g/dL Critically low 6.4-8.2 [facility] Comment on above: Performed By: #### C MP ####[facility] Oekeceoncf5264 [place] [address]Dr. Farhat Leal Sodium [Moles/Vol] 142 mmol/L Normal 136-145 [facility] Comment on above: Performed By: #### C MP ####[facility] Bnkbznqcvb8915 [place] [address]Dr. Farhat Leal Urea nitrogen [Mass/Vol] 53.0 mg/dL Critically high 7.0-18.0 [facility] Comment on above: Performed By: #### C MP ####[facility] Sizhoiadci09[address] [place], [place] [address]Dr. Farhat Leal Urea nitrogen/Creatinine [Mass ratio] 36.1 mg/mg Normal [facility] Comment on above: Performed By: #### C MP ####[facility] Xjmtozsbhg[address] [place], [place] [address]Dr. Farhat Leal PROTIMEon 05-29-2022 INR Coag (PPP) [Relative time] 2.41 {INR} Normal [facility] Comment on above: Performed By: #### P T ####[facility] Drfkbsibfd[address] [place], [place] [address]Dr. Farhat Leal INR GUIDELINES SEE BELOW Normal [facility] Comment on above: Result Comment: MALINA RED INR: 2.0 - 3.0 CONDITIONS NOT LISTED BELOW 2.5 - 3.5 FOR PROSTHETIC HEART VALVE REPLACEMENT 2.5 - 3.5 RECURRENT THROMBOSIS Performed By: #### P T ####[facility] Ilxmdrggjp61[address] [place], [place] [address]Dr. Farhat Leal PT Coag (PPP) [Time] 24.3 s Critically high 9.0-11.6 [facility] Comment on above: Performed By: #### P T ####[facility] Fadvlbvwdk[address] [place], [place] [address]Dr. Farhat Leal FK506 (TACROLIMUS) WHOLE BLO ODon 05-25-2022 Tacrolimus (FK506), Blood 5.1 ng/mL Normal 2.0-20.0 [facility] Comment on above: Result Comment: Trou gh (immediately following transplant) 15.0 . Trough (steady state, 2 weeks or more after transplant): 3.0 - 8.0 . Performed by LC-MS/MS technology. Performed By: #### F K506T ####[facility] Fvhjxcpzjz9826 [place] [address]Dr. Farhat Elvis CBC AUTO DIFFon 05-22-2022 BASO # 0.0 103/ul Normal 0.0-0.1 [facility] Comment on above: Performed By: #### C BC ####[facility] Ulwwggzfmb[address] [place], [place] [address]Dr. Farhat Leal Basophils/100 WBC (Bld) 0.5 % Normal 0.2-2.0 [facility] Comment on above: Performed By: #### C BC ####[facility] Xpotnkpjvw[address] [place], [place] [address]Dr. Farhat Leal EO # 0.2 103/ul Normal 0.0-0.7 [facility] Comment on above: Performed By: #### C BC ####[facility] Tvmrvhbspu[address] [place], [place] [address]Dr. Farhat Leal Eosinophils/100 WBC (Bld) 4.0 % Normal 0.9-7.0 [facility] Comment on above: Performed By: #### C BC ####[facility] Czfcbbhvyb12[address] [place], [place] [address]Dr. Farhat Leal Erythrocyte distribution width (RBC) [Ratio] 15.5 % Critically high 11.0-15.0 [facility] Comment on above: Performed By: #### C BC ####[facility] Kmrkmkuziq85[address] [place], [place] [address]Dr. Farhat Leal Hematocrit (Bld) [Volume fraction] 34.1 % Critically low 42.0-54.0 [facility] Comment on above: Performed By: #### C BC ####[facility] Ylitilozaf[address] [place], [place] [address]Dr. Farhat Leal Hemoglobin (Bld) [Mass/Vol] 11.3 g/dL Critically low 14.0-18.0 [facility] Comment on above: Performed By: #### C BC ####[facility] Iyvbudexqz9570 [place] [id number]. Farhat Leal IG # 0.03 10e3/ul Normal 0.00-0.03 [facility] Comment on above: Performed By: #### C BC ####[facility] Ckfzqnoatm0954 [place] [phone]. Farhat Leal IG % 0.5 % Normal 0.0-0.5 [facility] Comment on above: Performed By: #### C BC ####[facility] Bumopiicdy9863 [place] [phone]. Farhat Elvis LYMPH # 2.1 103/ul Normal 1.2-3.8 [facility] Comment on above: Performed By: #### C BC ####[facility] Bxqkkgveke1322 [place] [address]Dr. Farhat Leal Lymphocytes/100 WBC (Bld) 34.6 % Normal 20.5-60.0 [facility] Comment on above: Performed By: #### C BC ####[facility] Qwmeufkfan3534 [place] [phone]. Madelynlorri Leal MANUAL DIFF REQ NO Normal [facility] Comment on above: Performed By: #### C BC ####[facility] Pzqlaqmuti1189 [place] [phone]. Farhat Leal MCH (RBC) [Entitic mass] 30.3 pg Normal 25.9-34.0 [facility] Comment on above: Performed By: #### C BC ####[facility] Nksskixlna137[address] [place], [place] [id number]. Farhat Leal MCHC (RBC) [Mass/Vol] 33.1 g/dL Normal 29.9-35.2 [facility] Comment on above: Performed By: #### C BC ####[facility] Iorreilxzu8628 [place] [address]Dr. Farhat Leal MCV (RBC) [Entitic vol] 91.4 fL Normal 80.0-94.0 [facility] Comment on above: Performed By: #### C BC ####[facility] Svpoiynwta4463 [place] [phone]. Frahat Leal MONO # 0.7 103/ul Normal 0.3-0.8 [facility] Comment on above: Performed By: #### C BC ####[facility] Atohuibqwc1857 [place] [phone]. Farhat Leal Monocytes/100 WBC (Bld) 11.6 % Normal 1.7-12.0 [facility] Comment on above: Performed By: #### C BC ####[facility] Afskwcrhvl2895 [place] [phone]. Farhat Leal NEUT # 2.9 103/ul Normal 1.4-6.5 [facility] Comment on above: Performed By: #### C BC ####[facility] Abngxjdvxy8210 [place] [phone]. Farhat Leal Neutrophils/100 WBC (Bld) 48.8 % Normal 43.0-75.0 [facility] Comment on above: Performed By: #### C BC ####[facility] Nctypigylz6866 [place] [phone]. Farhat Leal Platelet mean volume (Bld) [Entitic vol] 10.9 fL Normal 9.5-13.5 [facility] Comment on above: Performed By: #### C BC ####[facility] Dsotxhjitz5852 [place] [phone]. Farhat Leal PLT 186 103/ul Normal 150-450 [facility] Comment on above: Performed By: #### C BC ####[facility] Ubloabeqrm1058 [place] [phone]. Farhat Leal RBC 3.73 106/ul Critically low 4.70-6.10 [facility] Comment on above: Performed By: #### C BC ####[facility] Wrcspogczf7968 [place] [phone]. Farhat Leal WBC 6.0 103/ul Normal 4.0-11.0 [facility] Comment on above: Performed By: #### C BC ####[facility] Xitjsmvbpj6323 [place] [address]Dr. Farhat Leal PROF 14(COMP METB)on 023 Albumin [Mass/Vol] 2.7 g/dL Critically low 3.4-5.0 [facility] Comment on above: Performed By: #### C MP ####[facility] Ueemysupts0927 [place] [address]Dr. Farhat Leal Albumin/Globulin [Mass ratio] 0.8 {ratio} Normal [facility] Comment on above: Performed By: #### C MP ####[facility] Gnllqzqnyo8613 [place] [address]Dr. Farhat Leal ALP [Catalytic activity/Vol] 60 U/L Normal 46-116 [facility] Comment on above: Performed By: #### C MP ####[facility] Barymrqgbn467[address] [place], [place] [address]Dr. Farhat Leal ALT [Catalytic activity/Vol] 17 U/L Normal 16-63 [facility] Comment on above: Performed By: #### C MP ####[facility] Mqvgledglx28[address] [place], [place] [address]Dr. Farhat Leal Anion gap [Moles/Vol] 9.6 mmol/L Normal [facility] Comment on above: Performed By: #### C MP ####[facility] Rfgvunoxmd11[address] [place], [place] [address]Dr. Farhat Leal AST [Catalytic activity/Vol] 14 U/L Critically low 15-37 [facility] Comment on above: Performed By: #### C MP ####[facility] Vjkzumdphi7917[address] [place], [place] [address]Dr. Farhat Leal Bilirubin [Mass/Vol] 0.5 mg/dL Normal 0.2-1.0 [facility] Comment on above: Performed By: #### C MP ####[facility] Xfzgoflzuk7699[address] [place], [place] [address]Dr. Farhat Leal Calcium [Mass/Vol] 8.4 mg/dL Critically low 8.5-10.1 [facility] Comment on above: Performed By: #### C MP ####[facility] Fvfqjpyapt0217 [place] [phone]. Farhat Leal Chloride [Moles/Vol] 104 mmol/L Normal 98-107 [facility] Comment on above: Performed By: #### C MP ####[facility] Bhdmijqzre2311 [place] [phone]. Farhat Leal CO2 [Moles/Vol] 27.2 mmol/L Normal 21.0-32.0 [facility] Comment on above: Performed By: #### C MP ####[facility] Mjcxxuvzry2335 [place] [address]Dr. Farhat Leal Creatinine [Mass/Vol] 1.24 mg/dL Normal 0.70-1.30 [facility] Comment on above: Performed By: #### C MP ####[facility] Rfivhrazvl2806 [place] [address]Dr. Farhat Elvis EGFR-AF MOZAMBICAN >60 Normal >=60 [facility] Comment on above: Performed By: #### C MP ####[facility] Idcatadoln1308 [place] [address]Dr. Farhat Elvis EGFR-NON AF MOZAMBICAN 57 mL/min/1.73m2 Critically low >=60 [facility] Comment on above: Performed By: #### C MP ####[facility] Kddfegenrq3596 [place] [address]Dr. Farhat Leal Globulin (S) [Mass/Vol] 3.3 g/dL Normal [facility] Comment on above: Performed By: #### C MP ####[facility] Fiibgxogkh5631 [place] [address]Dr. Farhat Elvis Glucose [Mass/Vol] 275 mg/dL Critically high 74-106 [facility] Comment on above: Performed By: #### C MP ####[facility] Ymgbobfiyj0107 [place] [address]Dr. Farhat Leal Potassium [Moles/Vol] 3.8 mmol/L Normal 3.5-5.1 [facility] Comment on above: Performed By: #### C MP ####[facility] Nvkawgfwbd38[address] [place], [place] [address]Dr. Farhat Leal Protein [Mass/Vol] 6.0 g/dL Critically low 6.4-8.2 [facility] Comment on above: Performed By: #### C MP ####[facility] Norsnsxkgk5148 [place] [address]Dr. Farhat Leal Sodium [Moles/Vol] 137 mmol/L Normal 136-145 [facility] Comment on above: Performed By: #### C MP ####[facility] Ietwrwxtpc34[address] [place], [place] [address]Dr. Farhat Leal Urea nitrogen [Mass/Vol] 54.0 mg/dL Critically high 7.0-18.0 [facility] Comment on above: Performed By: #### C MP ####[facility] Lacwnrvrwi4307[address] [place], [place] [address]Dr. Farhat Leal Urea nitrogen/Creatinine [Mass ratio] 43.5 mg/mg Normal [facility] Comment on above: Performed By: #### C MP ####[facility] Nfcvcqbadg7684[address] [place], [place] [address]Dr. Farhat Leal PROTIMEon 05-22-2022 INR Coag (PPP) [Relative time] 2.27 {INR} Normal [facility] Comment on above: Performed By: #### P T ####[facility] Zywcsawzne01[address] [place], [place] [address]Dr. Farhat Leal INR GUIDELINES SEE BELOW Normal [facility] Comment on above: Result Comment: MALINA RED INR: 2.0 - 3.0 CONDITIONS NOT LISTED BELOW 2.5 - 3.5 FOR PROSTHETIC HEART VALVE REPLACEMENT 2.5 - 3.5 RECURRENT THROMBOSIS Performed By: #### P T ####[facility] Vivxjuqqrr5330[address] [place], [place] [address]Dr. Farhat Leal PT Coag (PPP) [Time] 23.0 s Critically high 9.0-11.6 [facility] Comment on above: Performed By: #### P T ####[facility] Uraggajrja817230 [address] [place], [place] [address]Dr. Farhat Leal FK506 (TACROLIMUS) WHOLE BLO ODon 05-19-2022 Tacrolimus (FK506), Blood 7.8 ng/mL Normal 2.0-20.0 [facility] Comment on above: Result Comment: Trou gh (immediately following transplant) 15.0 . Trough (steady state, 2 weeks or more after transplant): 3.0 - 8.0 . Performed by LC-MS/MS technology. Performed By: #### F K506T ####[facility] Nokzbunlfb7772[address] [place], [place] [address]DrSkylar Leal CBC AUTO DIFFon 05-15-2022 BASO # 0.0 103/ul Normal 0.0-0.1 [facility] Comment on above: Performed By: #### C BC ####[facility] Cikfjkhqcc217[address] [place], [place] [address]DrSkylar Leal Basophils/100 WBC (Bld) 0.4 % Normal 0.2-2.0 [facility] Comment on above: Performed By: #### C BC ####[facility] Zvsfzsisao0411[address] [place], [place] [address]DrSkylar Leal EO # 0.2 103/ul Normal 0.0-0.7 [facility] Comment on above: Performed By: #### C BC ####[facility] Jmljkdrpvo6467[address] [place], [place] [address]DrSkylar Leal Eosinophils/100 WBC (Bld) 3.0 % Normal 0.9-7.0 [facility] Comment on above: Performed By: #### C BC ####[facility] Vfrumibdhd6763[address] [place], [place] [address]DrSkylar Leal Erythrocyte distribution width (RBC) [Ratio] 15.7 % Critically high 11.0-15.0 [facility] Comment on above: Performed By: #### C BC ####[facility] Epcppkywnj5105[address] [place], [place] [address]DrSkylar Leal Hematocrit (Bld) [Volume fraction] 36.8 % Critically low 42.0-54.0 [facility] Comment on above: Performed By: #### C BC ####[facility] Xziqqsrmhz112[address] [place], [place] [address]DrSkylar Leal Hemoglobin (Bld) [Mass/Vol] 12.4 g/dL Critically low 14.0-18.0 [facility] Comment on above: Performed By: #### C BC ####[facility] Uecfwzdjbz3914 [place] [address]DrSkylar Leal IG # 0.01 10e3/ul Normal 0.00-0.03 [facility] Comment on above: Performed By: #### C BC ####[facility] Oyoxdgelcy2850[address] [place], [place] [address]DrSkylar Leal IG % 0.1 % Normal 0.0-0.5 [facility] Comment on above: Performed By: #### C BC ####[facility] Tqucdtzctw8523[address] [place], [place] [address]DrSkylar Leal LYMPH # 2.4 103/ul Normal 1.2-3.8 [facility] Comment on above: Performed By: #### C BC ####[facility] Komvngcorj4639[address] [place], [place] [address]DrSkylar Leal Lymphocytes/100 WBC (Bld) 35.6 % Normal 20.5-60.0 [facility] Comment on above: Performed By: #### C BC ####[facility] Ahdcpoftxe3356[address] [place], [place] [address]DrSkylar Leal MANUAL DIFF REQ NO Normal [facility] Comment on above: Performed By: #### C BC ####[facility] Ocvaoqdygg0736[address] [place], [place] [address]DrSkylar Leal MCH (RBC) [Entitic mass] 30.1 pg Normal 25.9-34.0 [facility] Comment on above: Performed By: #### C BC ####[facility] Paevkeahup2529[address] [place], [place] [address]DrSkylar Leal MCHC (RBC) [Mass/Vol] 33.7 g/dL Normal 29.9-35.2 [facility] Comment on above: Performed By: #### C BC ####[facility] Uzzdqqxlew5134[address] [place], [place] [address]DrSkylar Leal MCV (RBC) [Entitic vol] 89.3 fL Normal 80.0-94.0 [facility] Comment on above: Performed By: #### C BC ####[facility] Ngpekmuwjq3433[address] [place], [place] [address]DrSkylar Farhat Leal MONO # 0.7 103/ul Normal 0.3-0.8 [facility] Comment on above: Performed By: #### C BC ####[facility] Tcwraoauek265[address] [place], [place] [address]Dr. Farhat Leal Monocytes/100 WBC (Bld) 10.8 % Normal 1.7-12.0 [facility] Comment on above: Performed By: #### C BC ####[facility] Hgrvctdeix4312[address] [place], [place] [address]Dr. Farhat Leal NEUT # 3.4 103/ul Normal 1.4-6.5 [facility] Comment on above: Performed By: #### C BC ####[facility] Fboedpdrun539[address] [place], [place] [address]Dr. Farhat Leal Neutrophils/100 WBC (Bld) 50.1 % Normal 43.0-75.0 [facility] Comment on above: Performed By: #### C BC ####[facility] Btxxjoxggw110[address] [place], [place] [address]Dr. Farhat Leal Platelet mean volume (Bld) [Entitic vol] 10.2 fL Normal 9.5-13.5 [facility] Comment on above: Performed By: #### C BC ####[facility] Qcvlcxmzwg5946[address] [place], [place] [address]Dr. Farhat Leal PLT 190 103/ul Normal 150-450 [facility] Comment on above: Performed By: #### C BC ####[facility] Wrhlocmqxl3301[address] [place], [place] [address]Dr. Farhat Elvis RBC 4.12 106/ul Critically low 4.70-6.10 [facility] Comment on above: Performed By: #### C BC ####[facility] Jfwnlrtibn0727[address] [place], [place] [address]Dr. Farhat Leal WBC 6.8 103/ul Normal 4.0-11.0 [facility] Comment on above: Performed By: #### C BC ####[facility] Geboqxulry5401 [place] [address]Dr. Farhat Leal PROF 14(COMP METB)on 023 Albumin [Mass/Vol] 2.8 g/dL Critically low 3.4-5.0 [facility] Comment on above: Performed By: #### C MP ####[facility] Umwewyirzh110[address] [place], [place] [address]Dr. Farhat Leal Albumin/Globulin [Mass ratio] 0.9 {ratio} Normal [facility] Comment on above: Performed By: #### C MP ####[facility] Ilpjdaynab7215[address] [place], [place] [address]Dr. Farhat Leal ALP [Catalytic activity/Vol] 66 U/L Normal 46-116 [facility] Comment on above: Performed By: #### C MP ####[facility] Dmoyrisxjz9784[address] [place], [place] [address]Dr. Farhat Leal ALT [Catalytic activity/Vol] 15 U/L Critically low 16-63 [facility] Comment on above: Performed By: #### C MP ####[facility] Aemagdqzfp2058[address] [place], [place] [address]Dr. Farhat Leal Anion gap [Moles/Vol] 11.1 mmol/L Normal [facility] Comment on above: Performed By: #### C MP ####[facility] Jnclhatxlt5189[address] [place], [place] [address]Dr. Farhat Leal AST [Catalytic activity/Vol] 14 U/L Critically low 15-37 [facility] Comment on above: Performed By: #### C MP ####[facility] Yiaoiajhiy866[address] [place], [place] [address]Dr. Farhat Leal Bilirubin [Mass/Vol] 0.8 mg/dL Normal 0.2-1.0 [facility] Comment on above: Performed By: #### C MP ####[facility] Chmfkrmqch1474[address] [place], [place] [address]Dr. Farhat Leal Calcium [Mass/Vol] 8.9 mg/dL Normal 8.5-10.1 [facility] Comment on above: Performed By: #### C MP ####[facility] Saypuqhmrk6408 [place] [address]Dr. Farhat Elvis Chloride [Moles/Vol] 101 mmol/L Normal 98-107 [facility] Comment on above: Performed By: #### C MP ####[facility] Vlhbuplqcp3196 [place] [address]Dr. Farhat Elvis CO2 [Moles/Vol] 28.2 mmol/L Normal 21.0-32.0 [facility] Comment on above: Performed By: #### C MP ####[facility] Nfraylzccw3817[address] [place], [place] [address]Dr. Madelynlorri Elvis Creatinine [Mass/Vol] 1.23 mg/dL Normal 0.70-1.30 [facility] Comment on above: Performed By: #### C MP ####[facility] Zjqubvsziw4129[address] [place], [place] [address]Dr. Farhat Elvis EGFR-AF MOZAMBICAN >60 Normal >=60 [facility] Comment on above: Performed By: #### C MP ####[facility] Sudhlghkvj9637[address] [place], [place] [address]Dr. Madelynlorri Elvis EGFR-NON AF MOZAMBICAN 57 mL/min/1.73m2 Critically low >=60 [facility] Comment on above: Performed By: #### C MP ####[facility] Aiptkegdtm4697 [place] [address]Dr. Farhat Leal Globulin (S) [Mass/Vol] 3.2 g/dL Normal [facility] Comment on above: Performed By: #### C MP ####[facility] Lcsgsnkpwz3827 [place] [phone]. Farhat Leal Glucose [Mass/Vol] 333 mg/dL Critically high 74-106 [facility] Comment on above: Performed By: #### C MP ####[facility] Xtixdljwkl9216 [place] [address]Dr. Farhat Leal Potassium [Moles/Vol] 4.3 mmol/L Normal 3.5-5.1 [facility] Comment on above: Performed By: #### C MP ####[facility] Cuieqyzlrb110[address] [place], [place] [address]Dr. Farhat Leal Protein [Mass/Vol] 6.0 g/dL Critically low 6.4-8.2 [facility] Comment on above: Performed By: #### C MP ####[facility] Pbukmfydvk8540[address] [place], [place] [address]Dr. Farhat Leal Sodium [Moles/Vol] 136 mmol/L Normal 136-145 [facility] Comment on above: Performed By: #### C MP ####[facility] Jigkpajcbr6633[address] [place], [place] [address]Dr. Farhat Leal Urea nitrogen [Mass/Vol] 58.0 mg/dL Critically high 7.0-18.0 [facility] Comment on above: Performed By: #### C MP ####[facility] Vyurwfuumn7264[address] [place], [place] [address]Dr. Farhat Leal Urea nitrogen/Creatinine [Mass ratio] 47.2 mg/mg Normal [facility] Comment on above: Performed By: #### C MP ####[facility] Tzmeazeiyd9553[address] [place], [place] [address]Dr. Farhat Leal PROTIMEon 05-13-2022 INR Coag (PPP) [Relative time] 3.51 {INR} Normal [facility] Comment on above: Performed By: #### P T ####[facility] Kmvxmgoypf6[address] [place], [place] [address]Dr. Farhat Leal INR GUIDELINES SEE BELOW Normal [facility] Comment on above: Result Comment: MALINA RED INR: 2.0 - 3.0 CONDITIONS NOT LISTED BELOW 2.5 - 3.5 FOR PROSTHETIC HEART VALVE REPLACEMENT 2.5 - 3.5 RECURRENT THROMBOSIS Performed By: #### P T ####[facility] Vghyupclei8096[address] [place], [place] [address]Dr. Farhat Leal PT Coag (PPP) [Time] 34.7 s Critically high 9.0-11.6 [facility] Comment on above: Performed By: #### P T ####[facility] Utyztgqjjc0664[address] [place], [place] [address]Dr. Farhat Leal FK506 (TACROLIMUS) WHOLE BLO ODon 05-11-2022 Tacrolimus (FK506), Blood 14.4 ng/mL Normal 2.0-20.0 [facility] Comment on above: Result Comment: Trou gh (immediately following transplant) 15.0 . Trough (steady state, 2 weeks or more after transplant): 3.0 - 8.0 . Performed by LC-MS/MS technology. Performed By: #### F K506T ####[facility] Nxjfjfapkx75[address] [place], [place] [address]Dr. Farhat Leal CBC AUTO DIFFon 05-08-2022 BASO # 0.0 103/ul Normal 0.0-0.1 [facility] Comment on above: Performed By: #### C BC ####[facility] Xlnrpmgwtt897[address] [place], [place] [address]Dr. Farhat Leal Basophils/100 WBC (Bld) 0.5 % Normal 0.2-2.0 [facility] Comment on above: Performed By: #### C BC ####[facility] Pxurgriqrk8324[address] [place], [place] [address]Dr. Farhat Leal EO # 0.2 103/ul Normal 0.0-0.7 [facility] Comment on above: Performed By: #### C BC ####[facility] Awdfmspnys[address] [place], [place] [address]Dr. Farhat Leal Eosinophils/100 WBC (Bld) 2.9 % Normal 0.9-7.0 [facility] Comment on above: Performed By: #### C BC ####[facility] Ycuaonryni9687[address] [place], [place] [address]Dr. Farhat Leal Erythrocyte distribution width (RBC) [Ratio] 16.0 % Critically high 11.0-15.0 [facility] Comment on above: Performed By: #### C BC ####[facility] Jdivvuhvrx9742[address] [place], [place] [address]Dr. Farhat Leal Hematocrit (Bld) [Volume fraction] 35.7 % Critically low 42.0-54.0 [facility] Comment on above: Performed By: #### C BC ####[facility] Ehdzloentt8430 [place] [phone]. Farhat Leal Hemoglobin (Bld) [Mass/Vol] 11.9 g/dL Critically low 14.0-18.0 [facility] Comment on above: Performed By: #### C BC ####[facility] Zxhqlwbsvr2884 [place] [phone]. Farhat Leal IG # 0.03 10e3/ul Normal 0.00-0.03 [facility] Comment on above: Performed By: #### C BC ####[facility] Amvtyhthmz5280 [place] [address]Dr. Farhat Leal IG % 0.5 % Normal 0.0-0.5 [facility] Comment on above: Performed By: #### C BC ####[facility] Scnvoobssk7257 [place] [address]Dr. Farhat Elvis LYMPH # 2.4 103/ul Normal 1.2-3.8 [facility] Comment on above: Performed By: #### C BC ####[facility] Zgpyswyjed6539 [place] [address]Dr. Farhat Elvis Lymphocytes/100 WBC (Bld) 37.8 % Normal 20.5-60.0 [facility] Comment on above: Performed By: #### C BC ####[facility] Vpvjnqgdoc5093 [place] [phone]. Madelynlorri Leal MANUAL DIFF REQ NO Normal [facility] Comment on above: Performed By: #### C BC ####[facility] Hgzjdbstbo8732 [place] [phone]. Farhat Leal MCH (RBC) [Entitic mass] 30.4 pg Normal 25.9-34.0 [facility] Comment on above: Performed By: #### C BC ####[facility] Cbvqfjswxj7923 [place] [phone]. Farhat Elvis MCHC (RBC) [Mass/Vol] 33.3 g/dL Normal 29.9-35.2 [facility] Comment on above: Performed By: #### C BC ####[facility] Eccryzlkpi0534 [place] [phone]. Farhat Leal MCV (RBC) [Entitic vol] 91.1 fL Normal 80.0-94.0 [facility] Comment on above: Performed By: #### C BC ####[facility] Jregwukxiz1318 [place] [phone]. Farhat Leal MONO # 0.7 103/ul Normal 0.3-0.8 [facility] Comment on above: Performed By: #### C BC ####[facility] Nkqojcyxeo0253 [place] [phone]. Farhat Leal Monocytes/100 WBC (Bld) 11.1 % Normal 1.7-12.0 [facility] Comment on above: Performed By: #### C BC ####[facility] Zythvdnfgz[address] [place], [place] [id number]. Farhat Leal NEUT # 2.9 103/ul Normal 1.4-6.5 [facility] Comment on above: Performed By: #### C BC ####[facility] Cshwafmkoy1769 [place] [phone]. Farhat Leal Neutrophils/100 WBC (Bld) 47.2 % Normal 43.0-75.0 [facility] Comment on above: Performed By: #### C BC ####[facility] Bywuffrzwu6069 [place] [phone]. Farhat Leal Platelet mean volume (Bld) [Entitic vol] 11.0 fL Normal 9.5-13.5 [facility] Comment on above: Performed By: #### C BC ####[facility] Icwdowvklj8458 [place] [phone]. Farhat Leal PLT 191 103/ul Normal 150-450 [facility] Comment on above: Performed By: #### C BC ####[facility] Kfiocuudea3143 [place] [phone]. Farhat Elvis RBC 3.92 106/ul Critically low 4.70-6.10 [facility] Comment on above: Performed By: #### C BC ####[facility] Wftjgicjsh4664 [place] [address]Dr. Farhat Leal WBC 6.2 103/ul Normal 4.0-11.0 [facility] Comment on above: Performed By: #### C BC ####[facility] Ocscmrfsdo8847 [place] [address]Dr. Farhat Leal MAGNESIUMon 05-08-2022 Magnesium [Mass/Vol] 1.9 mg/dL Normal 1.8-2.4 [facility] Comment on above: Performed By: #### P HOS, MG ####[facility] Xzgsryyypg0729 [place] [address]Dr. Farhat Leal PHOSPHORUSon 05-08-2022 Phosphate [Mass/Vol] 4.5 mg/dL Normal 2.6-4.7 [facility] Comment on above: Performed By: #### P HOS, MG ####[facility] Vwnslfcaog[address] [place], [place] [address]Dr. Farhat Leal PROF 14(COMP METB)on 023 Albumin [Mass/Vol] 2.9 g/dL Critically low 3.4-5.0 [facility] Comment on above: Performed By: #### C MP ####[facility] Boaoqpsuvg5[address] [place], [place] [address]Dr. Farhat Leal Albumin/Globulin [Mass ratio] 0.9 {ratio} Normal [facility] Comment on above: Performed By: #### C MP ####[facility] Tatbaquyis61[address] [place], [place] [address]Dr. Farhat Leal ALP [Catalytic activity/Vol] 70 U/L Normal 46-116 [facility] Comment on above: Performed By: #### C MP ####[facility] Alokfqdvos45[address] [place], [place] [address]Dr. Farhat Leal ALT [Catalytic activity/Vol] 13 U/L Critically low 16-63 [facility] Comment on above: Performed By: #### C MP ####[facility] Mdiotxxugm[address] [place] [address]Dr. Farhat Leal Anion gap [Moles/Vol] 14.6 mmol/L Normal [facility] Comment on above: Performed By: #### C MP ####[facility] Lbhvvupjsv[address] [place] [address]Dr. Farhat Leal AST [Catalytic activity/Vol] 17 U/L Normal 15-37 [facility] Comment on above: Performed By: #### C MP ####[facility] Zijjodxvkg2551 [place] [address]Dr. Madelynlrori Elvis Bilirubin [Mass/Vol] 0.8 mg/dL Normal 0.2-1.0 [facility] Comment on above: Performed By: #### C MP ####[facility] Xhcbwkizcm[address] [place], [place] [address]Dr. Farhat Leal Calcium [Mass/Vol] 8.9 mg/dL Normal 8.5-10.1 [facility] Comment on above: Performed By: #### C MP ####[facility] Gfmgtfqljj5[address] [place], [place] [address]Dr. Farhat Leal Chloride [Moles/Vol] 102 mmol/L Normal 98-107 [facility] Comment on above: Performed By: #### C MP ####[facility] Nmyryvtebs4[address] [place], [place] [address]Dr. Farhat Leal CO2 [Moles/Vol] 22.9 mmol/L Normal 21.0-32.0 [facility] Comment on above: Performed By: #### C MP ####[facility] Bktfohobvj00[address] [place], [place] [address]Dr. Farhat Leal Creatinine [Mass/Vol] 1.20 mg/dL Normal 0.70-1.30 [facility] Comment on above: Performed By: #### C MP ####[facility] Cqrrolhrwc9666[address] [place], [place] [address]Dr. Farhat Leal EGFR-AF MOZAMBICAN >60 Normal >=60 [facility] Comment on above: Performed By: #### C MP ####[facility] Ezbfftjuun23[address] [place], [place] [address]Dr. Farhat Leal EGFR-NON AF MOZAMBICAN 59 mL/min/1.73m2 Critically low >=60 [facility] Comment on above: Performed By: #### C MP ####[facility] Dvjzsgqvwk11[address] [place] [address]Dr. Farhat Leal Globulin (S) [Mass/Vol] 3.1 g/dL Normal [facility] Comment on above: Performed By: #### C MP ####[facility] Iscfnbdmtp0225 [place] [phone]. Farhat Leal Glucose [Mass/Vol] 447 mg/dL Critically high 74-106 T [facility] Comment on above: Performed By: #### C MP ####[facility] Gpeqnrporz8261 [place] [phone]. Farhat Elvis Potassium [Moles/Vol] 4.5 mmol/L Normal 3.5-5.1 [facility] Comment on above: Performed By: #### C MP ####[facility] Faafvtfrxj3148 [place] [address]Dr. Farhat Leal Protein [Mass/Vol] 6.0 g/dL Critically low 6.4-8.2 [facility] Comment on above: Performed By: #### C MP ####[facility] Ettsogodsr92[address] [place], [place] [address]Dr. Farhat Leal Sodium [Moles/Vol] 135 mmol/L Critically low 136-145 [facility] Comment on above: Performed By: #### C MP ####[facility] Hbmrvjhxwr5011 [place] [address]Dr. Farhat Leal Urea nitrogen [Mass/Vol] 52.0 mg/dL Critically high 7.0-18.0 [facility] Comment on above: Performed By: #### C MP ####[facility] Lhqzwdsdbh[address] [place], [place] [address]Dr. Farhat Leal Urea nitrogen/Creatinine [Mass ratio] 43.3 mg/mg Normal [facility] Comment on above: Performed By: #### C MP ####[facility] Srporipeww0897 [place] [phone]. Farhat Leal PROTIMEon 05-06-2022 INR Coag (PPP) [Relative time] 2.25 {INR} Normal [facility] Comment on above: Performed By: #### P T ####[facility] Lrhygndxlk4605 [place] [address]Dr. Farhat Leal INR GUIDELINES SEE BELOW Normal [facility] Comment on above: Result Comment: MALINA RED INR: 2.0 - 3.0 CONDITIONS NOT LISTED BELOW 2.5 - 3.5 FOR PROSTHETIC HEART VALVE REPLACEMENT 2.5 - 3.5 RECURRENT THROMBOSIS Performed By: #### P T ####[facility] Alqcekqvvr6826[address] [place], [place] [address]Dr. Farhat Leal PT Coag (PPP) [Time] 22.8 s Critically high 9.0-11.6 [facility] Comment on above: Performed By: #### P T ####[facility] Dxkfvokrky1265[address] [place], [place] [address]Dr. Farhat Leal FK506 (TACROLIMUS) WHOLE BLO ODon 05-04-2022 Tacrolimus (FK506), Blood 10.4 ng/mL Normal 2.0-20.0 [facility] Comment on above: Result Comment: Trou gh (immediately following transplant) 15.0 . Trough (steady state, 2 weeks or more after transplant): 3.0 - 8.0 . Performed by LC-MS/MS technology. Performed By: #### F K506T ####[facility] Tgnfghptqy0665[address] [place], [place] [address]Dr. Farhat Leal CBC AUTO DIFFon 05-01-2022 BASO # 0.1 103/ul Normal 0.0-0.1 [facility] Comment on above: Performed By: #### C BC ####[facility] Stuvqkxrlb9799[address] [place], [place] [address]Dr. Farhat Leal Basophils/100 WBC (Bld) 0.7 % Normal 0.2-2.0 [facility] Comment on above: Performed By: #### C BC ####[facility] Bqwixzwgur236[address] [place], [place] [address]Dr. Farhat Leal EO # 0.2 103/ul Normal 0.0-0.7 [facility] Comment on above: Performed By: #### C BC ####[facility] Szdynosubf2568 [place] [address]Dr. Farhat Leal Eosinophils/100 WBC (Bld) 3.2 % Normal 0.9-7.0 [facility] Comment on above: Performed By: #### C BC ####[facility] Dxhvslzxgm9920[address] [place], [place] [address]Dr. Farhat Leal Erythrocyte distribution width (RBC) [Ratio] 16.4 % Critically high 11.0-15.0 [facility] Comment on above: Performed By: #### C BC ####[facility] Tedgxuhigb4598[address] [place], [place] [address]Dr. Farhat Leal Hematocrit (Bld) [Volume fraction] 35.1 % Critically low 42.0-54.0 [facility] Comment on above: Performed By: #### C BC ####[facility] Uojdrxxgbz8948[address] [place], [place] [address]Dr. Farhat Leal Hemoglobin (Bld) [Mass/Vol] 11.6 g/dL Critically low 14.0-18.0 [facility] Comment on above: Performed By: #### C BC ####[facility] Chacldhdja7624[address] [place], [place] [address]Dr. Farhat Leal IG # 0.03 10e3/ul Normal 0.00-0.03 [facility] Comment on above: Performed By: #### C BC ####[facility] Tllktudaks2414[address] [place], [place] [address]Dr. Farhat Leal IG % 0.4 % Normal 0.0-0.5 [facility] Comment on above: Performed By: #### C BC ####[facility] Golhzabull5934[address] [place], [place] [address]Dr. Farhat Leal LYMPH # 2.4 103/ul Normal 1.2-3.8 [facility] Comment on above: Performed By: #### C BC ####[facility] Ymemieskji843[address] [place], [place] [address]Dr. Farhat Leal Lymphocytes/100 WBC (Bld) 35.1 % Normal 20.5-60.0 [facility] Comment on above: Performed By: #### C BC ####[facility] Xbckufzgvo2228 [place] [phone]. Farhat Leal MANUAL DIFF REQ NO Normal [facility] Comment on above: Performed By: #### C BC ####[facility] Kdarbywvdv5385 [place] [phone]. Farhat Leal MCH (RBC) [Entitic mass] 29.4 pg Normal 25.9-34.0 [facility] Comment on above: Performed By: #### C BC ####[facility] Btqkbsugbn2369 [place] [phone]. Farhat Leal MCHC (RBC) [Mass/Vol] 33.0 g/dL Normal 29.9-35.2 [facility] Comment on above: Performed By: #### C BC ####[facility] Mhhlzcfjmf7766[address] [place], [place] [address]Dr. Farhat Leal MCV (RBC) [Entitic vol] 88.9 fL Normal 80.0-94.0 [facility] Comment on above: Performed By: #### C BC ####[facility] Olyqspikdz[address] [place], [place] [phone]. Farhat Leal MONO # 0.7 103/ul Normal 0.3-0.8 [facility] Comment on above: Performed By: #### C BC ####[facility] Zcffymheel6525[address] [place], [place] [address]Dr. Farhat Leal Monocytes/100 WBC (Bld) 9.6 % Normal 1.7-12.0 [facility] Comment on above: Performed By: #### C BC ####[facility] Mhgkqbqssg7762[address] [place], [place] [address]Dr. Farhat Leal NEUT # 3.5 103/ul Normal 1.4-6.5 [facility] Comment on above: Performed By: #### C BC ####[facility] Uiftettaqw449[address] [place], [place] [phone]. Farhat Leal Neutrophils/100 WBC (Bld) 51.0 % Normal 43.0-75.0 [facility] Comment on above: Performed By: #### C BC ####[facility] Vkrxwlkbeu7189 [place] [address]Dr. Farhat Leal Platelet mean volume (Bld) [Entitic vol] 10.3 fL Normal 9.5-13.5 [facility] Comment on above: Performed By: #### C BC ####[facility] Qrfvfhftiz1249 [place] [address]Dr. Farhat Leal PLT 184 103/ul Normal 150-450 [facility] Comment on above: Performed By: #### C BC ####[facility] Fxpizprmlg4073 [place] [address]Dr. Farhat Leal RBC 3.95 106/ul Critically low 4.70-6.10 [facility] Comment on above: Performed By: #### C BC ####[facility] Geakrfvqwl1916 [place] [address]Dr. Farhat Leal WBC 7.0 103/ul Normal 4.0-11.0 [facility] Comment on above: Performed By: #### C BC ####[facility] Yvxhqegojy2859 [place] [address]Dr. Farhat Leal PROF 14(COMP METB)on 023 Albumin [Mass/Vol] 2.6 g/dL Critically low 3.4-5.0 [facility] Comment on above: Performed By: #### C MP ####[facility] Hpyszfkuid6926 [place] [address]Dr. Farhat Leal Albumin/Globulin [Mass ratio] 0.9 {ratio} Normal [facility] Comment on above: Performed By: #### C MP ####[facility] Iexqcwqgxn0982 [place] [address]Dr. Farhat Leal ALP [Catalytic activity/Vol] 53 U/L Normal 46-116 [facility] Comment on above: Performed By: #### C MP ####[facility] Vxvtiweasl5054 [place] [address]Dr. Farhat Leal ALT [Catalytic activity/Vol] 17 U/L Normal 16-63 [facility] Comment on above: Performed By: #### C MP ####[facility] Cnzfbalnyn8732 [place] [phone]. Farhat Leal Anion gap [Moles/Vol] 10.0 mmol/L Normal [facility] Comment on above: Performed By: #### C MP ####[facility] Geyovzfjcq0447 [place] [phone]. Farhat Leal AST [Catalytic activity/Vol] 19 U/L Normal 15-37 [facility] Comment on above: Performed By: #### C MP ####[facility] Mhpzneypeo996[address] [place], [place] [phone]. Farhat Leal Bilirubin [Mass/Vol] 0.5 mg/dL Normal 0.2-1.0 [facility] Comment on above: Performed By: #### C MP ####[facility] Pfkkjdvvhq1925[address] [place], [place] [address]Dr. Farhat Leal Calcium [Mass/Vol] 8.4 mg/dL Critically low 8.5-10.1 [facility] Comment on above: Performed By: #### C MP ####[facility] Xgxgsazuxe9964[address] [place], [place] [address]Dr. Farhat Leal Chloride [Moles/Vol] 108 mmol/L Critically high 98-107 [facility] Comment on above: Performed By: #### C MP ####[facility] Sopechpxhh7804[address] [place], [place] [address]Dr. Farhat Leal CO2 [Moles/Vol] 26.9 mmol/L Normal 21.0-32.0 [facility] Comment on above: Performed By: #### C MP ####[facility] Tisiimerdz6654[address] [place], [place] [address]Dr. Farhat Leal Creatinine [Mass/Vol] 1.20 mg/dL Normal 0.70-1.30 [facility] Comment on above: Performed By: #### C MP ####[facility] Qhebmgadov42[address] [place], [place] [phone]. Farhat Leal EGFR-AF MOZAMBICAN >60 Normal >=60 [facility] Comment on above: Performed By: #### C MP ####[facility] Kouossxdby5087 [place] [phone]. Farhat Leal EGFR-NON AF MOZAMBICAN 59 mL/min/1.73m2 Critically low >=60 [facility] Comment on above: Performed By: #### C MP ####[facility] Qugevzbuny6263 [place] [phone]. Farhat Leal Globulin (S) [Mass/Vol] 3.0 g/dL Normal [facility] Comment on above: Performed By: #### C MP ####[facility] Xbnfwrrknb1978 [place] [phone]. Farhat Leal Glucose [Mass/Vol] 213 mg/dL Critically high 74-106 T [facility] Comment on above: Performed By: #### C MP ####[facility] Lvqiwdlowi3383 [place] [phone]. Farhat Leal Potassium [Moles/Vol] 3.9 mmol/L Normal 3.5-5.1 [facility] Comment on above: Performed By: #### C MP ####[facility] Nhcfkjvikx9235 [place] [phone]. Farhat Leal Protein [Mass/Vol] 5.6 g/dL Critically low 6.4-8.2 [facility] Comment on above: Performed By: #### C MP ####[facility] Ntljehzgoo9274 [place] [phone]. Farhat Leal Sodium [Moles/Vol] 141 mmol/L Normal 136-145 [facility] Comment on above: Performed By: #### C MP ####[facility] Uiprxusvch3827 [place] [phone]. Farhat Leal Urea nitrogen [Mass/Vol] 61.0 mg/dL Critically high 7.0-18.0 [facility] Comment on above: Performed By: #### C MP ####[facility] Glzbjerffl8571 [place] [phone]. Farhat Leal Urea nitrogen/Creatinine [Mass ratio] 50.8 mg/mg Normal [facility] Comment on above: Performed By: #### C MP ####[facility] Wdztxdvgem7378[address] [place], [place] [address]Dr. Farhat Leal FK506 (TACROLIMUS) WHOLE BLO ODon 04-27-2022 Tacrolimus (FK506), Blood 16.5 ng/mL Normal 2.0-20.0 [facility] Comment on above: Result Comment: Trou gh (immediately following transplant) 15.0 . Trough (steady state, 2 weeks or more after transplant): 3.0 - 8.0 . Performed by LC-MS/MS technology. Performed By: #### F K506T ####[facility] Vnrlnlbaox4666[address] [place], [place] [address]Dr. Farhat Leal CBC AUTO DIFFon 04-24-2022 BASO # 0.0 103/ul Normal 0.0-0.1 [facility] Comment on above: Performed By: #### C BC ####[facility] Uppqjusmfr0865[address] [place], [place] [address]Dr. Farhat Leal Basophils/100 WBC (Bld) 0.5 % Normal 0.2-2.0 [facility] Comment on above: Performed By: #### C BC ####[facility] Xlybogedpe9530[address] [place], [place] [address]Dr. Farhat Leal EO # 0.2 103/ul Normal 0.0-0.7 [facility] Comment on above: Performed By: #### C BC ####[facility] Xdkynpzjkf445[address] [place], [place] [address]Dr. Farhat Leal Eosinophils/100 WBC (Bld) 3.1 % Normal 0.9-7.0 [facility] Comment on above: Performed By: #### C BC ####[facility] Dovcvsccex0097[address] [place], [place] [address]Dr. Farhat Leal Erythrocyte distribution width (RBC) [Ratio] 16.3 % Critically high 11.0-15.0 [facility] Comment on above: Performed By: #### C BC ####[facility] Pibvizlupa0967[address] [place], [place] [address]Dr. Farhat Leal Hematocrit (Bld) [Volume fraction] 34.0 % Critically low 42.0-54.0 [facility] Comment on above: Performed By: #### C BC ####[facility] Cqxgaeinzz4024 [place] [phone]. Farhat Leal Hemoglobin (Bld) [Mass/Vol] 11.6 g/dL Critically low 14.0-18.0 [facility] Comment on above: Performed By: #### C BC ####[facility] Jkgttfgsvw9619 [place] [phone]. Farhat Leal IG # 0.02 10e3/ul Normal 0.00-0.03 [facility] Comment on above: Performed By: #### C BC ####[facility] Vvszwtpagd6577 [place] [phone]. Farhat Elvis IG % 0.4 % Normal 0.0-0.5 [facility] Comment on above: Performed By: #### C BC ####[facility] Ekpodxqtyh3848[address] [place], [place] [address]Dr. Farhat Elvis LYMPH # 2.2 103/ul Normal 1.2-3.8 [facility] Comment on above: Performed By: #### C BC ####[facility] Enaggfrobp1336 [place] [phone]. Farhat Elvis Lymphocytes/100 WBC (Bld) 38.8 % Normal 20.5-60.0 [facility] Comment on above: Performed By: #### C BC ####[facility] Ycpukqhqoy8494 [place] [phone]. Madelynlorri Leal MANUAL DIFF REQ NO Normal [facility] Comment on above: Performed By: #### C BC ####[facility] Wlpggfqzwk1705 [place] [phone]. Farhat Elvis MCH (RBC) [Entitic mass] 30.1 pg Normal 25.9-34.0 [facility] Comment on above: Performed By: #### C BC ####[facility] Jqqkuqppai6890 [place] [phone]. Farhat Elvis MCHC (RBC) [Mass/Vol] 34.1 g/dL Normal 29.9-35.2 [facility] Comment on above: Performed By: #### C BC ####[facility] Ahrxwbaeoz6538 [place] [phone]. Farhat Leal MCV (RBC) [Entitic vol] 88.1 fL Normal 80.0-94.0 [facility] Comment on above: Performed By: #### C BC ####[facility] Rlkfqtsrbz3196 [place] [phone]. Farhat Leal MONO # 0.6 103/ul Normal 0.3-0.8 [facility] Comment on above: Performed By: #### C BC ####[facility] Xmooeqhgxa3449 [place] [phone]. Farhat Leal Monocytes/100 WBC (Bld) 10.8 % Normal 1.7-12.0 [facility] Comment on above: Performed By: #### C BC ####[facility] Klmgtrfynw[address] [place], [place] [phone]. Farhat Leal NEUT # 2.6 103/ul Normal 1.4-6.5 [facility] Comment on above: Performed By: #### C BC ####[facility] Mblzfmqarc5[address] [place], [place] [id number]. Farhat Leal Neutrophils/100 WBC (Bld) 46.4 % Normal 43.0-75.0 [facility] Comment on above: Performed By: #### C BC ####[facility] Tcsspjwkym89[address] [place], [place] [address]Dr. Farhat Leal Platelet mean volume (Bld) [Entitic vol] 10.9 fL Normal 9.5-13.5 [facility] Comment on above: Performed By: #### C BC ####[facility] Eynimneipr1498 [place] [phone]. Farhat Leal PLT 159 103/ul Normal 150-450 [facility] Comment on above: Performed By: #### C BC ####[facility] Ifrokmggad2113 [place] [phone]. Farhat Leal RBC 3.86 106/ul Critically low 4.70-6.10 [facility] Comment on above: Performed By: #### C BC ####[facility] Usrfjuyssv2747 [place] [address]Dr. Farhat Leal WBC 5.6 103/ul Normal 4.0-11.0 [facility] Comment on above: Performed By: #### C BC ####[facility] Guzmryyatl1573 [place] [address]Dr. aFrhat Leal PROTIMEon 04-24-2022 INR Coag (PPP) [Relative time] 3.23 {INR} Normal [facility] Comment on above: Performed By: #### P T ####[facility] Bknnisobkq9[address] [place], [place] [address]Dr. Farhat Leal INR GUIDELINES SEE BELOW Normal [facility] Comment on above: Result Comment: MALINA RED INR: 2.0 - 3.0 CONDITIONS NOT LISTED BELOW 2.5 - 3.5 FOR PROSTHETIC HEART VALVE REPLACEMENT 2.5 - 3.5 RECURRENT THROMBOSIS Performed By: #### P T ####[facility] Uaipicbkbm705[address] [place], [place] [address]Dr. Farhat Leal PT Coag (PPP) [Time] 32.0 s Critically high 9.0-11.6 [facility] Comment on above: Performed By: #### P T ####[facility] Vlrocjuayb1701[address] [place], [place] [address]Dr. Farhat Leal FK506 (TACROLIMUS) WHOLE BLO ODon 04-20-2022 Tacrolimus (FK506), Blood 13.9 ng/mL Normal 2.0-20.0 [facility] Comment on above: Result Comment: Trou gh (immediately following transplant) 15.0 . Trough (steady state, 2 weeks or more after transplant): 3.0 - 8.0 . Performed by LC-MS/MS technology. Performed By: #### F K506T ####[facility] Ommvjvqbum15[address] [place], [place] [address]Dr. Farhat Leal CBC AUTO DIFFon 04-17-2022 BASO # 0.0 103/ul Normal 0.0-0.1 [facility] Comment on above: Performed By: #### C BC ####[facility] Rgfrsgvxbk88[address] [place], [place] [address]Dr. Farhat Leal Basophils/100 WBC (Bld) 0.4 % Normal 0.2-2.0 [facility] Comment on above: Performed By: #### C BC ####[facility] Tszkamanog8062 [place] [address]Dr. Farhat Leal EO # 0.2 103/ul Normal 0.0-0.7 [facility] Comment on above: Performed By: #### C BC ####[facility] Jqgthldtft0851 [place] [address]Dr. Farhat Leal Eosinophils/100 WBC (Bld) 2.8 % Normal 0.9-7.0 [facility] Comment on above: Performed By: #### C BC ####[facility] Vgdowzglfm4545 [place] [address]Dr. Farhat Leal Erythrocyte distribution width (RBC) [Ratio] 16.1 % Critically high 11.0-15.0 [facility] Comment on above: Performed By: #### C BC ####[facility] Zltzidnwou4100 [place] [address]Dr. Farhat Leal Hematocrit (Bld) [Volume fraction] 35.7 % Critically low 42.0-54.0 [facility] Comment on above: Performed By: #### C BC ####[facility] Kntysnfycn1361 [place] [address]Dr. Farhat Leal Hemoglobin (Bld) [Mass/Vol] 12.2 g/dL Critically low 14.0-18.0 [facility] Comment on above: Performed By: #### C BC ####[facility] Msepequbya6873 [place] [address]Dr. Farhat Leal IG # 0.03 10e3/ul Normal 0.00-0.03 [facility] Comment on above: Performed By: #### C BC ####[facility] Mizohsnepd7076 [place] [address]Dr. Farhat Leal IG % 0.4 % Normal 0.0-0.5 [facility] Comment on above: Performed By: #### C BC ####[facility] Vlohuuihvr5449 [place] [phone]. Farhat Elvis LYMPH # 2.4 103/ul Normal 1.2-3.8 [facility] Comment on above: Performed By: #### C BC ####[facility] Nabuyritqx4409 [place] [phone]. Farhat Elvis Lymphocytes/100 WBC (Bld) 36.1 % Normal 20.5-60.0 [facility] Comment on above: Performed By: #### C BC ####[facility] Krzxjdkjqw4179 [place] [address]Dr. Madelynlorri Leal MANUAL DIFF REQ NO Normal [facility] Comment on above: Performed By: #### C BC ####[facility] Wrhocwxfnw4882 [place] [address]Dr. Farhat Elvis MCH (RBC) [Entitic mass] 30.3 pg Normal 25.9-34.0 [facility] Comment on above: Performed By: #### C BC ####[facility] Yfcmntrior8023 [place] [address]Dr. Farhat Elvis MCHC (RBC) [Mass/Vol] 34.2 g/dL Normal 29.9-35.2 [facility] Comment on above: Performed By: #### C BC ####[facility] Yeypescapx0087 [place] [address]Dr. Madelynlorri Leal MCV (RBC) [Entitic vol] 88.6 fL Normal 80.0-94.0 [facility] Comment on above: Performed By: #### C BC ####[facility] Kqnxgjtild0721 [place] [phone]. Madelynlorri Leal MONO # 0.7 103/ul Normal 0.3-0.8 [facility] Comment on above: Performed By: #### C BC ####[facility] Cvqojtdcxg3597 [place] [address]Dr. Madelynlorri Leal Monocytes/100 WBC (Bld) 10.1 % Normal 1.7-12.0 [facility] Comment on above: Performed By: #### C BC ####[facility] Beashyljsd9607 [place] [phone]. Farhat Leal NEUT # 3.4 103/ul Normal 1.4-6.5 [facility] Comment on above: Performed By: #### C BC ####[facility] Hhtkqrdtev2501 [place] [phone]. Farhat Leal Neutrophils/100 WBC (Bld) 50.2 % Normal 43.0-75.0 [facility] Comment on above: Performed By: #### C BC ####[facility] Yiiwtnxoor4940 [place] [address]Dr. Farhat Leal Platelet mean volume (Bld) [Entitic vol] 11.8 fL Normal 9.5-13.5 [facility] Comment on above: Performed By: #### C BC ####[facility] Gprfbuigeh3347 [place] [address]Dr. Madelynlorri Elvis PLT 193 103/ul Normal 150-450 [facility] Comment on above: Performed By: #### C BC ####[facility] Rzfrwvfxei4815 [place] [address]Dr. Farhat Elvis RBC 4.03 106/ul Critically low 4.70-6.10 [facility] Comment on above: Performed By: #### C BC ####[facility] [address]fexkchyjn[address] [place], [place] [address]Dr. Farhat Leal WBC 6.8 103/ul Normal 4.0-11.0 [facility] Comment on above: Performed By: #### C BC ####[facility] Lmvkhjliiu7803 [place] [address]Dr. Farhat Leal PROF 14(COMP METB)on 023 Albumin [Mass/Vol] 2.9 g/dL Critically low 3.4-5.0 [facility] Comment on above: Performed By: #### C MP ####[facility] Tloadjquqd0600 [place] [address]Dr. Farhat Leal Albumin/Globulin [Mass ratio] 0.9 {ratio} Normal [facility] Comment on above: Performed By: #### C MP ####[facility] Rapeeziwgz7163 [place] [phone]. Farhat Leal ALP [Catalytic activity/Vol] 67 U/L Normal 46-116 [facility] Comment on above: Performed By: #### C MP ####[facility] [address] [place] [address]Dr. Farhat Leal ALT [Catalytic activity/Vol] 15 U/L Critically low 16-63 [facility] Comment on above: Performed By: #### C MP ####[facility] Dxxem[address] [place], [place] [address]Dr. Farhat Leal Anion gap [Moles/Vol] 10.8 mmol/L Normal [facility] Comment on above: Performed By: #### C MP ####[facility] [address]wadwzboi[address] [place], [place] [address]Dr. Farhat Leal AST [Catalytic activity/Vol] 23 U/L Normal 15-37 [facility] Comment on above: Performed By: #### C MP ####[facility] Whgoqlxoqw[address] [place], [place] [address]Dr. Farhat Leal Bilirubin [Mass/Vol] 0.6 mg/dL Normal 0.2-1.0 [facility] Comment on above: Performed By: #### C MP ####[facility] Chyjikxlxd[address] [place], [place] [address]Dr. Farhat Leal Calcium [Mass/Vol] 8.7 mg/dL Normal 8.5-10.1 [facility] Comment on above: Performed By: #### C MP ####[facility] Wsylpwlvin[address] [place], [place] [address]Dr. Farhat Leal Chloride [Moles/Vol] 105 mmol/L Normal 98-107 [facility] Comment on above: Performed By: #### C MP ####[facility] Qtoyrniozg[address] [place], [place] [address]Dr. Farhat Lael CO2 [Moles/Vol] 29.5 mmol/L Normal 21.0-32.0 [facility] Comment on above: Performed By: #### C MP ####[facility] Hroqlrocqj[address] [place], [place] [address]Dr. Farhat Elvis Creatinine [Mass/Vol] 1.37 mg/dL Critically high 0.70-1.30 [facility] Comment on above: Performed By: #### C MP ####[facility] [address]rf[address] [place] [address]Dr. Farhat Elvis EGFR-AF MOZAMBICAN >60 Normal >=60 [facility] Comment on above: Performed By: #### C MP ####[facility] Xqnkxkhwix[address] [place] [address]Dr. Farhat Leal EGFR-NON AF MOZAMBICAN 50 mL/min/1.73m2 Critically low >=60 [facility] Comment on above: Performed By: #### C MP ####[facility] [address]jykzpiyz[address] [place] [address]Dr. Farhat Leal Globulin (S) [Mass/Vol] 3.1 g/dL Normal [facility] Comment on above: Performed By: #### C MP ####[facility] Kcoeanzkph6[address] [place] [address]Dr. Farhat Leal Glucose [Mass/Vol] 203 mg/dL Critically high 74-106 [facility] Comment on above: Performed By: #### C MP ####[facility] Poruc[address] [place], [place] [address]Dr. Farhat Leal Potassium [Moles/Vol] 4.3 mmol/L Normal 3.5-5.1 [facility] Comment on above: Performed By: #### C MP ####[facility] Zartvdbhbq[address] [place] [address]Dr. Farhat Leal Protein [Mass/Vol] 6.0 g/dL Critically low 6.4-8.2 [facility] Comment on above: Performed By: #### C MP ####[facility] Dtkyu[address] [place], [place] [address]Dr. Farhat Leal Sodium [Moles/Vol] 141 mmol/L Normal 136-145 [facility] Comment on above: Performed By: #### C MP ####[facility] Pdfjpvrnpz[address] [place], [place] [address]Dr. Farhat Leal Urea nitrogen [Mass/Vol] 65.0 mg/dL Critically high 7.0-18.0 [facility] Comment on above: Performed By: #### C MP ####[facility] [address]ott[address] [place] [phone]. Farhat Leal Urea nitrogen/Creatinine [Mass ratio] 47.4 mg/mg Normal [facility] Comment on above: Performed By: #### C MP ####[facility] Riaxuakseg54[address] [place] [phone] Farhat Leal PROTIMEon 04-15-2022 INR Coag (PPP) [Relative time] 3.88 {INR} Normal [facility] Comment on above: Performed By: #### P T ####[facility] [address] [place] [phone] Farhat Leal INR GUIDELINES SEE BELOW Normal [facility] Comment on above: Result Comment: MALINA RED INR: 2.0 - 3.0 CONDITIONS NOT LISTED BELOW 2.5 - 3.5 FOR PROSTHETIC HEART VALVE REPLACEMENT 2.5 - 3.5 RECURRENT THROMBOSIS Performed By: #### P T ####[facility] [address]ysxtb[address] [place] [phone] Farhat Leal PT Coag (PPP) [Time] 38.1 s Critically high 9.0-11.6 [facility] Comment on above: Performed By: #### P T ####[facility] Cstrqpszkp60[address] [place] [phone] Farhat Leal Glucose Glucometer (dC) [M ass/Vol]Ordered By: Sadia Aguilar on 04-14-2022 Glucose [Mass/Vol] 162 mg/dL [facility] Comment on above: Random Glucose Refer ence Range is dependent on time and content of last meal. Glucose of more than 200 mg/dL in a nonstressed, ambulatory subject supports the diagnosis of Diabetes Mellitus. Glucose Poct Glucometerson 0 04-14-2022 Commemt1 Glu2: Cleaned Meter Normal [facility] Comment on above: Result Comment: PERF ORMED BY: [facility] [address] [place] [address] PATHOLOGIST TRANSPORTATION OFFICER JOSE F ELLIOTT M.D. Performed By: #### G MADY #### Point of Care testing , Glucose [Mass/Vol] 162 mg/dL Normal [facility] Comment on above: Result Comment: Machias Glucose Reference Range is dependent on time and content of last meal. Glucose of more than 200 mg/dL in a nonstressed, ambulatory subject supports the diagnosis of Diabetes Mellitus. Performed By: #### G LULS #### Point of Care testing , No Panel InformationOrdered By: Sadia Aguilar on 04-14-2022 Bedside Glucose Comment Glu2: cleaned meter [facility] MAGNESIUMon 04-13-2022 Magnesium [Mass/Vol] 1.7 mg/dL Critically low 1.8-2.4 [facility] Comment on above: Performed By: #### M HENRI Manzo ####[facility] [address]qn[address]vf[address] [place] [address]DrSkylar Leal PHOSPHORUSon 04-13-2022 Phosphate [Mass/Vol] 4.8 mg/dL Critically high 2.6-4.7 [facility] Comment on above: Performed By: #### M HENRI Manzo ####[facility] [address] [place] [address]DrSkylar Leal PROTIMEon 04-13-2022 INR Coag (PPP) [Relative time] 3.16 {INR} Normal [facility] Comment on above: Performed By: #### P T ####[facility] [address]penaxbago[address] [place] [address]DrSkylar Leal INR GUIDELINES SEE BELOW Normal [facility] Comment on above: Result Comment: MALINA RED INR: 2.0 - 3.0 CONDITIONS NOT LISTED BELOW 2.5 - 3.5 FOR PROSTHETIC HEART VALVE REPLACEMENT 2.5 - 3.5 RECURRENT THROMBOSIS Performed By: #### P T ####[facility] Rw[address]tiybozi[address] [place] [address]Dr. Farhat Leal PT Coag (PPP) [Time] 31.4 s Critically high 9.0-11.6 [facility] Comment on above: Performed By: #### P T ####[facility] Ev[address]ukkcpb[address] [place] [phone]. Farhat Leal MAGNESIUMon 03-11-2022 Magnesium [Mass/Vol] 1.6 mg/dL Critically low 1.8-2.4 [facility] Comment on above: Performed By: #### M G, PHOS ####[facility] [address]vpz[address] [place] [phone]. Farhat Leal PHOSPHORUSon 03-11-2022 Phosphate [Mass/Vol] 5.3 mg/dL Critically high 2.6-4.7 [facility] Comment on above: Performed By: #### M G, PHOS ####[facility] [address] [place] [address]Dr. Farhat Leal CNOVon 02-26-2022 CNOV Office Visit (HONEY ) ALEX ALMONTE ([id number]) 1945 M TRN Date Time Provider Department 02/26/22 3:00 PM HINA PETERSON During your visit today, we recorded the following information about you: Temperature Pulse Blood pressure 96.6 degrees 75/minute 88/75 Hina Peterson MD, 02/26/2022 4:31 PM [facility] Thor[facility] Circle DEPARTMENT OF VASCULAR SURGERY OUTPATIENT VISIT DATE [...] of napaimute artery of extremity with ulceration ([facility]) 11/29/2021 BPH (benign prostatic hyperplasia) CAD (coronary artery disease) 2016 s/p PCI 2016 and CABG 2019 Diabetes mellitus ([facility]) Diabetic neuropathy ([facility]) Diabetic retinopathy ([facility]) HTN (hypertension) Hyperlipidemia Impaired vision in both eyes KIDNEY TRANSPLANT STATUS 09/07/2003 ESRD s/p renal transplant in 2001 on chronic immunosuppression . Patient on mycophenolate mofetil , cellcept and prednisone Mixed hyperlipidemia due to type 2 diabetes mellitus ([facility]) 11/29/2021 Osteomyelitis ([facility]) 11/29/2021 Paroxysmal atrial fibrillation ([facility]) Renal transplant, status post SA node dysfunction ([facility]) s/p pacemaker Type 2 diabetes mellitus with diabetic neuropathy, with long-term current use of insulin ([facility]) 02/24/2002 PAST SURGICAL HISTORY Procedure Laterality [...] by mouth daily with lunch. Magic Cup Madelia with lunch aspirin, enteric coated (ASPIRIN, ENTERIC COATED) 81 mg EC tablet Take 1 tablet by (more content not included)... Normal [facility] PROTIMEon 02-25-2022 INR Coag (PPP) [Relative time] 1.31 {INR} Normal [facility] Comment on above: Performed By: #### P T ####[facility] [address] [place], [place] [address]Vl. Farhat Leal INR GUIDELINES SEE BELOW Normal [facility] Comment on above: Result Comment: MALINA RED INR: 2.0 - 3.0 CONDITIONS NOT LISTED BELOW 2.5 - 3.5 FOR PROSTHETIC HEART VALVE REPLACEMENT 2.5 - 3.5 RECURRENT THROMBOSIS Performed By: #### P T ####[facility] [address] [place], [place] [address]NfSkylar Leal PT Coag (PPP) [Time] 13.7 s Critically high 9.0-11.6 [facility] Comment on above: Performed By: #### P T ####[facility] [address] [place], [place] [address]SrSkylar Hassan 02-19-2022 CNPN Telephone (TXCTGL) ALEX ALMONTE ([id number]) 1945 M TRN Date Time Provider Department 02/19/22 AUGUSTA MEDRANO During your visit today, we recorded the following information about you: Augusta Medrano RN 02/19/2022 11:16 AM Signed Alex Almonte's nursing facility, [facility], called regarding elevated tacrolimus level (23.9). Spoke [...] by mouth daily with lunch. 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 DIABETES UNCOMPL ADULT-UNCONTRLLED [[id number]] 02/24/2002 KIDNEY TRANSPLANT STATUS [Z94.0] 09/07/2003 PROPHYLACTIC IMMUNOTHERAPY [Z29.8] 07/30/2006 USP STEROIDS [[id number]] 07/30/2006 VITAMIN D DEFICIENCY NOS [E55.9] 09/07/2008 [...] Encounter Status:Closed by AUGUSTA MEDRANO on 02/19/22 [facility] Sonya 02-18-2022 CNPN Telephone (PODCCP) ALEX ALMONTE ([id number]) 1945 M TRN Date Time Provider Department 02/18/22 DEVON MOREIRA PODREAL During your visit today, we recorded the following information about you: Yumiko Camelia 02/18/2022 3:16 PM Signed Reason for call: Mr. Almonte would like to request a sooner appointment with Dr. Peterson than 04/13/2022. Contact Name (if not the patient) Alex's nurse Home and cell number(Ask for Alex's nurse) [phone] Diagnosis 4 mo f/u wound check Best [...] by mouth daily with lunch. 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 DIABETES UNCOMPL ADULT-UNCONTRLLED [[id number]] 02/24/2002 KIDNEY TRANSPLANT STATUS [Z94.0] 09/07/2003 PROPHYLACTIC IMMUNOTHERAPY [Z29.8] 07/30/2006 FRUIT CANNER STEROIDS [[id number]] 07/30/2006 VITAMIN D DEFICIENCY NOS [E55.9] 09/07/2008 [...] by CHEASTY (more content not included)... Normal [facility] CNOVon 02-05-2022 CNOV Office Visit (TXCTGL ) ALEX ALMONTE ([id number]) 1945 M TRN Date Time Provider Department 02/05/22 8:20 AM [facility] TXP [facility] TXCTGL During your visit today, we recorded the following information about you: Temperature Pulse Blood pressure 96.7 degrees 79/minute 72/42 Asia Pike MD 02/05/2022 9:38 AM Signed [facility] Urologic and Kidney Circle Transplant Follow up Portions of this note [...] snacks patient declined. Indra scale at [facility]: 166.2 lbs per patient. Bed sore on coccyx causing discomfort. Being changed regularly at [facility]- reported to be smaller around but still as deep. Patient not very up to date with medications. Patient brought paperwork from [employer] with all medications being received. Patient unsure if they have been drawing labs regularly. Last Tac from 01/19: 12.9 and K 5.9. In need of current labs. Lab orders will be sent with patient and follows as below: Kidney and Pancreas Transplant Standing Lab Orders [address] [place], [place] [address] February 05, 2022 Alex Urbinaward 1945 [id number] STANDARD TESTING: Diagnosis Codes: Z94.0 Kidney Transplant [...] AT YOUR LABORATORY FACILITY AND FAX TO [phone]. PLEASE CALL [phone]. Provider: Dr. Pike Current Outpatient Medications Medication [...] Take 237 (more content not included)... Normal [facility] PROTEIN CREATININE RATIOon 1 04-08-2021 Protein/Creatinine (U) [Mass ratio] 0.10 mg/mg <0.15 mg/mg [facility] PROTIMEon 02-05-2022 INR Coag (PPP) [Relative time] 2.90 {INR} Normal [facility] Comment on above: Performed By: #### P T ####[facility] [address]kl[address] [place], [place] [address]FoDr. Farhat Leal INR GUIDELINES SEE BELOW Normal [facility] Comment on above: Result Comment: MALINA RED INR: 2.0 - 3.0 CONDITIONS NOT LISTED BELOW 2.5 - 3.5 FOR PROSTHETIC HEART VALVE REPLACEMENT 2.5 - 3.5 RECURRENT THROMBOSIS Performed By: #### P T ####[facility] Rs[address]bhzyax[address] [place] [phone]. Farhat Leal PT Coag (PPP) [Time] 29.2 s Critically high 9.0-11.6 [facility] Comment on above: Performed By: #### P T ####[facility] Kqltexfbpv8[address] [place] [phone]. Farhat Leal Prot/Creat Uron 02-05-2022 Protein/Creatinine (U) [Mass ratio] 0.10 mg/mg Normal <0.15 [facility] Comment on above: Order Comment: Speci men Type: URINE SPECIMENOrdering Facility: [facility] Address: [address] [place] [address] Result Comment: Adul t Proteinuria Categories: <0.15 mg/mg is considered normal to mildly increased 0.15 - 0.50 mg/mg is considered moderately increased >0.50 mg/mg is considered severely increased KDIGO. (2013). KDIGO 2012 Clinical Practice Guideline for the Evaluation and Management of Chronic Kidney Disease. Official Journal of the International Society of Nephrology, 3(1), 1-150. Performed By: #### 2 890-2 ####[facility] LABCLIA [id number] [address] STATES OF [facility] Protein/Creatinine (U) [Mass ratio]on 02-05-2022 Creatinine (U) [Mass/Vol] 86.9 mg/dL 20.0 - 300.0 mg/dL [facility] Protein (U) [Mass/Vol] 9 mg/dL 0 - 20 mg/dL [facility] Creatinine (U) [Mass/Vol] 86.9 mg/dL Normal 20.0-300.0 [facility] Comment on above: Order Comment: Speci men Type: URINE SPECIMENOrdering Facility: [facility] Address: [address] [place] [address] Performed By: #### 2 890-2 ####[facility] LABCLIA [id number] [place] [address] [place] Protein (U) [Mass/Vol] 9 mg/dL Normal 0-20 Cl [facility] Comment on above: Order Comment: Speci men Type: URINE SPECIMENOrdering Facility: [facility] Address: [address] [place] [address] Performed By: #### 2 890-2 ####[facility] LABCLIA [id number] [place] [address] [place] URINALYSIS, DIPSTICK ONLYon 02-05-2022 Bilirubin Ql (U) Negative Normal Negative [facility] Comment on above: Order Comment: Speci men Type: URINE SPECIMEN Ordering Facility: [facility] Address: [address] [place] [address] Performed By: #### U A #### [facility] CLIA [id number] [address] [place] [address] [place] Clarity (Unsp spec) Clear Normal Clear [facility] Comment on above: Order Comment: Speci men Type: URINE SPECIMEN Ordering Facility: [facility] Address: [address] [place] [address] Performed By: #### U A #### [facility] CLIA [id number] [address] [place] [address] [place] Color (U) Yellow Normal Yellow [facility] Comment on above: Order Comment: Speci men Type: URINE SPECIMEN Ordering Facility: [facility] Address: [address] [place], [place] [id number] Performed By: #### U A #### [facility] CLIA [id number] [address] [place] [address] [place] Glucose Test strip (U) [Mass/Vol] 3+ Abnormal Trace, Negative [facility] Comment on above: Order Comment: Speci men Type: URINE SPECIMEN Ordering [facility]: [facility] Address: [address] [place] [address] Performed By: #### U A #### [facility] CLIA [id number] [address] [place] [address] [place] Hemoglobin Ql (U) Negative Normal Negative, Trace [facility] Comment on above: Order Comment: Speci men Type: URINE SPECIMEN Ordering Facility: [facility] Address: [address] [place] [address] Performed By: #### U A #### [facility] CLIA [id number] [address] [place] [address] [place] Ketones Ql (U) Trace Normal Negative, Trace [facility] Comment on above: Order Comment: Speci men Type: URINE SPECIMEN Ordering [facility]: [facility] Address: [address] [place] [address] Performed By: #### U A #### [facility] CLIA [id number] [address] [place] [address] [place] Leukocyte esterase Test strip Ql (U) Negative Normal Negative, 25 Loraine/mL [facility] Comment on above: Order Comment: Speci men Type: URINE SPECIMEN Order[facility] Address: [address] [place] [address] Performed By: #### U A #### [facility] CLIA [id number] [address] [place] [address] [place] Nitrite Ql (U) Negative Normal Negative [facility] Comment on above: Order Comment: Speci men Type: URINE SPECIMEN Ordering [facility] Address: [address] [place] [address] Performed By: #### U A #### [facility] CLIA [id number] [address] [place] [address] [place] pH (U) 5.5 [pH] Normal 5.0-8.0 [facility] Comment on above: Order Comment: Speci men Type: URINE SPECIMEN Order[facility]: [facility] Address: [address] [place] [address] Performed By: #### U A #### [facility] CLIA [id number] [address] [place] [address] [place] Protein (U) [Mass/Vol] Negative Normal Trace , Negative [facility] Comment on above: Order Comment: Speci men Type: URINE SPECIMEN Order[facility] Address: [address] [place] [address] Performed By: #### U A #### [facility] CLIA [id number] [address] [place] [address] [place] Specific gravity (U) [Rel density] 1.014 Normal 1.005-1.030 [facility] Comment on above: Order Comment: Speci men Type: URINE SPECIMEN Order[facility] Address: [address] [place] [address] Performed By: #### U A #### [facility] IA [id number] [address] [place] [address] [place] Urobilinogen Ql (U) 1+ Abnormal Negative [facility] Comment on above: Order Comment: Speci men Type: URINE SPECIMEN [facility] Address: [address] [place] [address] Performed By: #### U A #### [facility] CLIA [id number] [address] [place] [address] [place] Bilirubin Ql (U) Negative Negative [facility] Clarity (Unsp spec) Clear Clear [facility] Color (U) Yellow Yellow [facility] Glucose Test strip (U) [Mass/Vol] 3+ Abnormal Trace, Negative [facility] Hemoglobin Ql (U) Negative Negative, Trace [facility] Ketones Ql (U) Trace Negative, Trace [facility] Leukocyte esterase Test strip Ql (U) Negative Negative, 25 Loraine/mL [facility] Nitrite Ql (U) Negative Negative [facility] pH (U) 5.5 [pH] 5.0 - 8.0 [facility] Protein (U) [Mass/Vol] Negative Trace , Negative [facility] Specific gravity (U) [Rel density] 1.014 1.005 - 1.030 [facility] Urobilinogen Ql (U) 1+ Abnormal Negative [facility] FK506 (TACROLIMUS) WHOLE BLO ODon 01-29-2022 Tacrolimus (FK506), Blood 11.1 ng/mL Normal 2.0-20.0 [facility] Comment on above: Result Comment: Trou gh (immediately following transplant) 15.0 . Trough (steady state, 2 weeks or more after transplant): 3.0 - 8.0 . Performed by LC-MS/MS technology. Performed By: #### F K506T ####[facility] [address] [place], [place] [address]Dr. Farhat Leal PHOSPHORUSon 01-26-2022 Phosphate [Mass/Vol] 4.1 mg/dL Normal 2.6-4.7 [facility] Comment on above: Performed By: #### C CARA, PHOS ####[facility] [address] [place], [place] [address]Dr. Farhat Leal PROF 14(COMP METB)on 022 Albumin [Mass/Vol] 2.1 g/dL Critically low 3.4-5.0 [facility] Comment on above: Performed By: #### C CARA, PHOS ####[facility] [address] [place], [place] [address]Dr. Farhat Leal Albumin/Globulin [Mass ratio] 0.6 {ratio} Normal [facility] Comment on above: Performed By: #### C CARA, PHOS ####[facility] Reg[address]xq[address] [place], [place] [address]Dr. Farhat Leal ALP [Catalytic activity/Vol] 89 U/L Normal 46-116 [facility] Comment on above: Performed By: #### C CARA, PHOS ####[facility] [address] [place], [place] [address]Dr. Farhat Leal ALT [Catalytic activity/Vol] 27 U/L Normal 16-63 [facility] Comment on above: Performed By: #### C CARA, PHOS ####[facility] [address] [place] [phone]. Farhat Leal Anion gap [Moles/Vol] 12.3 mmol/L Normal [facility] Comment on above: Performed By: #### C MP, PHOS ####[facility] [address] [place] [phone]. Farhat Leal AST [Catalytic activity/Vol] 53 U/L Critically high 15-37 [facility] Comment on above: Performed By: #### C MP, PHOS ####[facility] [address]xf[address] [place] [phone]. Farhat Leal Bilirubin [Mass/Vol] 0.6 mg/dL Normal 0.2-1.0 [facility] Comment on above: Performed By: #### C CARA, PHOS ####[facility] [address] [place] [address]Dr. Farhat Leal Calcium [Mass/Vol] 8.0 mg/dL Critically low 8.5-10.1 [facility] Comment on above: Performed By: #### C CARA, PHOS ####[facility] [address] [place] [phone]. Farhat Leal Chloride [Moles/Vol] 97 mmol/L Critically low 98-107 [facility] Comment on above: Performed By: #### C MP, PHOS ####[facility] [address] [place] [phone]. Farhat Leal CO2 [Moles/Vol] 26.6 mmol/L Normal 21.0-32.0 [facility] Comment on above: Performed By: #### C MP, PHOS ####[facility] [address] [place] [phone]. Farhat Leal Creatinine [Mass/Vol] 1.03 mg/dL Normal 0.70-1.30 [facility] Comment on above: Performed By: #### C MP, PHOS ####[facility] [address] [place] [phone]. Farhat Leal EGFR-AF MOZAMBICAN >60 Normal >=60 [facility] Comment on above: Performed By: #### C MP, PHOS ####[facility] [address] [place] [address]Dr. Farhat Leal EGFR-NON AF MOZAMBICAN >60 Normal >=60 [facility] Comment on above: Performed By: #### C MP, PHOS ####[facility] Oxvfknxnwl[address] [place] [address]Dr. Farhat Leal Globulin (S) [Mass/Vol] 3.7 g/dL Normal [facility] Comment on above: Performed By: #### C MP, PHOS ####[facility] Wsujplblhl4[address] [place] [address]Dr. Farhat Leal Glucose [Mass/Vol] 287 mg/dL Critically high 74-106 T [facility] Comment on above: Performed By: #### C CARA, PHOS ####[facility] Lyeoejjdqz[address] [place], [place] [address]Dr. Faraht Leal Potassium [Moles/Vol] 3.9 mmol/L Normal 3.5-5.1 [facility] Comment on above: Performed By: #### C CARA, PHOS ####[facility] Fwprbpeprm[address] [place], [place] [address]Dr. Farhat Leal Protein [Mass/Vol] 5.8 g/dL Critically low 6.4-8.2 [facility] Comment on above: Performed By: #### C CARA, PHOS ####[facility] Wkvnmsiddi48[address] [place] [address]Dr. Farhat Leal Sodium [Moles/Vol] 132 mmol/L Critically low 136-145 [facility] Comment on above: Performed By: #### C MP, PHOS ####[facility] Kbffxhlker[address] [place], [place] [address]Dr. Farhat Leal Urea nitrogen [Mass/Vol] 23.0 mg/dL Critically high 7.0-18.0 [facility] Comment on above: Performed By: #### C MP, PHOS ####[facility] Yvzttgxinj[address] [place], [place] [address]Dr. Farhat Leal Urea nitrogen/Creatinine [Mass ratio] 22.3 mg/mg Normal [facility] Comment on above: Performed By: #### C HENRI MARROQUIN ####[facility] Zfopmxcooc[address] [place] [phone]. Madelynlorri Elvis FK506 (TACROLIMUS) WHOLE BLO ODon 01-21-2022 Tacrolimus (FK506), Blood 12.2 ng/mL Normal 2.0-20.0 [facility] Comment on above: Result Comment: Trou gh (immediately following transplant) 15.0 . Trough (steady state, 2 weeks or more after transplant): 3.0 - 8.0 . Performed by LC-MS/MS technology. Performed By: #### F K506T ####[facility] Cfkqhewvix13[address] [place] [address]Dr. Farhat Leal ACID FAST SMEAR AND CXon Acid Fast Culture Negative Normal [facility] Comment on above: Result Comment: No a abdiel fast bacilli isolated after 6 weeks. Performed By: #### A FB ####[facility] Okruqleqtr6217 [place] [phone]. Farhat Leal Acid Fast Smear Negative Normal [facility] Comment on above: Performed By: #### A FB ####[facility] Tsgmsleeiu75[address] [place] [address]Dr. Farhat Leal [employer] Specimen Processing Tissue Grinding Normal [facility] Comment on above: Performed By: #### A FB ####[facility] Cymvdhrbtg8[address] [place] [phone]. Farhat Hassan 01-20-2022 DIAMANTEN Telephone (KIMBERLY) ALEX ALMONTE ([id number]) 1945 M [facility] Date Time Provider Department 01/20/22 VAN OLIVAREZ During your visit today, we recorded the following information about you: Van Olivarez APRN.CNP 01/20/2022 1:14 PM Signed Labs noted from yesterday. Pt is currently residing at [facility], I spoke with the Nurse, [...] by mouth daily with lunch. 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 DIABETES UNCOMPL ADULT-UNCONTRLLED [[id number]] 02/24/2002 KIDNEY TRANSPLANT STATUS [Z94.0] 09/07/2003 PROPHYLACTIC IMMUNOTHERAPY [Z29.8] 07/30/2006 FRUIT CANNER STEROIDS [[id number]] 07/30/2006 VITAMIN D DEFICIENCY NOS [E55.9] 09/07/2008 [...] Status:Closed by VAN OLIVAREZ on 01/20/22 Normal [facility] Orders Onlyon 01-20-2022 Orders Only [id number] Alex Almonte 1945 M Date Provider Department Center 01/20/2022 Fidelina8-SUSIE HERNANDES [facility] No family history on file Normal [place] PROF 14(COMP METB)on 022 Albumin [Mass/Vol] 1.9 g/dL Critically low 3.4-5.0 [facility] Comment on above: Performed By: #### C MP ####[facility] Aziyehjczi[address] [place] [address]DrSkylar Leal Albumin/Globulin [Mass ratio] 0.5 {ratio} Normal [facility] Comment on above: Performed By: #### C MP ####[facility] Azxfkottfn3708 [place] [phone] Leal ALP [Catalytic activity/Vol] 78 U/L Normal 46-116 [facility] Comment on above: Performed By: #### C MP ####[facility] Snpapijzph2539 [place] [phone] Leal ALT [Catalytic activity/Vol] 22 U/L Normal 16-63 [facility] Comment on above: Performed By: #### C MP ####[facility] Blajnssgpx25[address] [place] [phone]. Farhat Leal Anion gap [Moles/Vol] 8.0 mmol/L Normal [facility] Comment on above: Performed By: #### C MP ####[facility] Itulamkogs1154 [place] [phone]. Farhat Leal AST [Catalytic activity/Vol] 92 U/L Critically high 15-37 [facility] Comment on above: Performed By: #### C MP ####[facility] Umdckronzh2060 [place] [phone]. Farhat Elvis Bilirubin [Mass/Vol] 0.7 mg/dL Normal 0.2-1.0 [facility] Comment on above: Performed By: #### C MP ####[facility] Wnskruflid[address] [place], [place] [address]Dr. Farhat Leal Calcium [Mass/Vol] 7.8 mg/dL Critically low 8.5-10.1 [facility] Comment on above: Performed By: #### C MP ####[facility] Hvtamlvjqw[address] [place], [place] [address]Dr. Madelynlorri Leal Chloride [Moles/Vol] 99 mmol/L Normal 98-107 [facility] Comment on above: Performed By: #### C MP ####[facility] Ydwvmmghlb45[address] [place] [address]Dr. Madelynlorri Elvis CO2 [Moles/Vol] 30.9 mmol/L Normal 21.0-32.0 [facility] Comment on above: Performed By: #### C MP ####[facility] Eakimlsupo7332 [place] [phone]. Farhat Elvis Creatinine [Mass/Vol] 0.95 mg/dL Normal 0.70-1.30 [facility] Comment on above: Performed By: #### C MP ####[facility] Yohpdmppsf6662 [place] [phone]. Farhat Leal EGFR-AF MOZAMBICAN >60 Normal >=60 [facility] Comment on above: Performed By: #### C MP ####[facility] Kivzpwhumq027[address] [place] [phone]. Farhat Leal EGFR-NON AF MOZAMBICAN >60 Normal >=60 [facility] Comment on above: Performed By: #### C MP ####[facility] Mcrqbreyrk6825 [place] [phone]. Farhat Leal Globulin (S) [Mass/Vol] 3.9 g/dL Normal [facility] Comment on above: Performed By: #### C MP ####[facility] Deyejlbwvn7270 [place] [phone]. Farhat Leal Glucose [Mass/Vol] 124 mg/dL Critically high 74-106 T [facility] Comment on above: Performed By: #### C MP ####[facility] Imcurzefqw0590 [place] [address]Dr. Farhat Leal Potassium [Moles/Vol] 5.9 mmol/L Critically high 3.5-5.1 [facility] Comment on above: Performed By: #### C MP ####[facility] Sbehlguhnw3440 [place] [address]Dr. Farhat Leal Protein [Mass/Vol] 5.8 g/dL Critically low 6.4-8.2 [facility] Comment on above: Performed By: #### C MP ####[facility] Ffefwqzatj06[address] [place] [address]Dr. Farhat Leal Sodium [Moles/Vol] 132 mmol/L Critically low 136-145 [facility] Comment on above: Performed By: #### C MP ####[facility] Lwjqoberlt0125 [place] [phone]. Farhat Leal Urea nitrogen [Mass/Vol] 18.0 mg/dL Normal 7.0-18.0 [facility] Comment on above: Performed By: #### C MP ####[facility] Mpsxklwzxc9[address] [place], [place] [address]Dr. Farhat Leal Urea nitrogen/Creatinine [Mass ratio] 18.9 mg/mg Normal [facility] Comment on above: Performed By: #### C MP ####[facility] Jkisegjubs3443 [place], [place] [address]Hz. Farhat Leal INR (POC)on 01-12-2022 INR Coag (PPP) [Relative time] 2.6 {INR} High 0.8 - 1.2 [facility] Internal Quality Check Acceptable Cl [facility] ACID FAST SMEAR AND CXon Acid Fast Culture Negative Normal [facility] Comment on above: Result Comment: No a abdiel fast bacilli isolated after 6 weeks. Performed By: #### A FB ####[facility] Bvmolibmwn[address] [place], [place] [id number]. Farhat Leal Acid Fast Smear Negative Normal [facility] Comment on above: Performed By: #### A FB ####[facility] Qnnmjsnunu4724[address] [place], [place] [address]Dr. Farhat Leal [employer] Specimen Processing Direct Inoculation [facility] Comment on above: Performed By: #### A FB ####[facility] Vvdxgcdgnd[address] [place], [place] [id number]. Farhat Leal ACID FAST SMEAR AND CXon Acid Fast Culture Negative Normal [facility] Comment on above: Result Comment: No a abdiel fast bacilli isolated after 6 weeks. Performed By: #### A FB ####[facility] Knzusiqxxc[address] [place], [place] [id number]. Farhat Leal Acid Fast Smear Negative Normal [facility] Comment on above: Performed By: #### A FB ####[facility] Ihlhodkotn[address] [place], [place] [address]Dr. Farhat Leal [employer] Specimen Processing Tissue Grinding [facility] Comment on above: Performed By: #### A FB ####[facility] Vjyirlcwtc[address] [place], [place] [id number]. Farhat Leal FUNGAL CULTUREon 01-02-2022 Fungus (Mycology) Culture Final report Normal [facility] Comment on above: Performed By: #### C XFUN ####[facility] Abnhhcdebd[address] [place], [place] [id number]. Farhat Leal Fungus Stain Final report Normal [facility] Comment on above: Performed By: #### C XFUN ####[facility] [address]ytz[address] [place] [address]. Farhat Leal Result 1 Comment Normal [facility] Comment on above: Result Comment: ANNI/ Calcofluor preparation: no fungus observed. Performed By: #### C XFUN ####[facility] Yimwurtln[address] [place] [address]. Farhat Leal Result Comment: No y east or mold isolated after 4 weeks. FK506 (TACROLIMUS) WHOLE BLO ODon 12-31-2021 Tacrolimus (FK506), Blood 7.7 ng/mL Normal 2.0-20.0 [facility] Comment on above: Result Comment: Trou gh (immediately following transplant) 15.0 . Trough (steady state, 2 weeks or more after transplant): 3.0 - 8.0 . Performed by LC-MS/MS technology. Performed By: #### F K506T ####[facility] Rdkectytcr[address] [place] [address]. Farhat Leal HEMOGRAM AND PLATELon 2021 Hematocrit (Bld) [Volume fraction] 27.1 % Critically low 42.0-54.0 [facility] Comment on above: Performed By: #### H H ####[facility] Yaos[address]we[address] [place] [address]. Farhat Leal Hemoglobin (Bld) [Mass/Vol] 8.7 g/dL Critically low 14.0-18.0 [facility] Comment on above: Performed By: #### H H ####[facility] V[address] [place] [address]. Farhat Leal MCH (RBC) [Entitic mass] 30.3 pg Normal 25.9-34.0 [facility] Comment on above: Performed By: #### H H ####[facility] [address]esc[address]uuy[address] [place] [address]. Farhat Leal MCHC (RBC) [Mass/Vol] 32.1 g/dL Normal 29.9-35.2 [facility] Comment on above: Performed By: #### H H ####[facility] Iwihebkpab05[address] [place] [phone]. Farhat Leal MCV (RBC) [Entitic vol] 94.4 fL Critically high 80.0-94.0 [facility] Comment on above: Performed By: #### H H ####[facility] Cccpzuosze1598 [place] [phone]. Farhat Leal PLT 355 103/ul Normal 150-450 [facility] Comment on above: Performed By: #### H H ####[facility] Jihvotnrkp5306 [place] [address]Dr. Farhat Leal RBC 2.87 106/ul Critically low 4.70-6.10 [facility] Comment on above: Performed By: #### H H ####[facility] Zskbiianet39[address] [place], [place] [address]Dr. Farhat Leal WBC 6.0 103/ul Normal 4.0-11.0 [facility] Comment on above: Performed By: #### H H ####[facility] Torguobmxi[address] [place], [place] [address]Dr. Farhat Leal PHOSPHORUSon 12-29-2021 Phosphate [Mass/Vol] 2.5 mg/dL Critically low 2.6-4.7 [facility] Comment on above: Performed By: #### P HOS, CMP ####[facility] Bhaoaehfln5[address] [place] [address]Dr. Farhat Elvis PROF 14(COMP METB)on 022 Albumin [Mass/Vol] 1.7 g/dL Critically low 3.4-5.0 [facility] Comment on above: Performed By: #### P HOS, CMP ####[facility] Ypqfjmzrbw[address] [place], [place] [address]Dr. Farhat Leal Albumin/Globulin [Mass ratio] 0.5 {ratio} Normal [facility] Comment on above: Performed By: #### P HOS, CMP ####[facility] Uyinucmasv[address] [place] [address]Dr. Farhat Leal ALP [Catalytic activity/Vol] 78 U/L Normal 46-116 [facility] Comment on above: Performed By: #### P HOS, CMP ####[facility] Bdrhfuelgc17[address] [place], [place] [address]Dr. Farhat Leal ALT [Catalytic activity/Vol] 12 U/L Critically low 16-63 [facility] Comment on above: Performed By: #### P HOS, CMP ####[facility] Rrnlttsuwa[address] [place], [place] [address]Dr. Farhat Leal Anion gap [Moles/Vol] 5.1 mmol/L Normal [facility] Comment on above: Performed By: #### P HOS, CMP ####[facility] Nlvekvrmeg6[address] [place], [place] [address]Dr. Farhat Leal AST [Catalytic activity/Vol] 22 U/L Normal 15-37 [facility] Comment on above: Performed By: #### P HOS, CMP ####[facility] Cxuenumpub[address] [place], [place] [address]Dr. Farhat Leal Bilirubin [Mass/Vol] 0.6 mg/dL Normal 0.2-1.0 [facility] Comment on above: Performed By: #### P HOS, CMP ####[facility] Sfeufibibc[address] [place], [place] [address]Dr. Farhat Leal Calcium [Mass/Vol] 8.1 mg/dL Critically low 8.5-10.1 [facility] Comment on above: Performed By: #### P HOS, CMP ####[facility] Iotfooawbn04[address] [place], [place] [address]Dr. Farhat Leal Chloride [Moles/Vol] 100 mmol/L Normal 98-107 [facility] Comment on above: Performed By: #### P HOS, CMP ####[facility] Umzofzbagy60[address] [place], [place] [address]Dr. Farhat Leal CO2 [Moles/Vol] 34.2 mmol/L Critically high 21.0-32.0 [facility] Comment on above: Performed By: #### P HOS, CMP ####[facility] Ymwempjsbt22[address] [place], [place] [address]Dr. Farhat Leal Creatinine [Mass/Vol] 0.92 mg/dL Normal 0.70-1.30 [facility] Comment on above: Performed By: #### P HOS, CMP ####[facility] Tvhedfxses9496 [place] [phone]. Farhat Leal EGFR-AF MOZAMBICAN >60 Normal >=60 [facility] Comment on above: Performed By: #### P HOS, CMP ####[facility] Ttvibfxvks1658 [place] [phone]. Farhat Leal EGFR-NON AF MOZAMBICAN >60 Normal >=60 [facility] Comment on above: Performed By: #### P HOS, CMP ####[facility] Supdcpjdrq7899 [place] [phone]. Farhat Leal Globulin (S) [Mass/Vol] 3.3 g/dL Normal [facility] Comment on above: Performed By: #### P HOS, CMP ####[facility] Zlyaxwojbs8101 [place] [address]Dr. Farhat Leal Glucose [Mass/Vol] 116 mg/dL Critically high 74-106 [facility] Comment on above: Performed By: #### P HOS, CMP ####[facility] Wbpvxoiyht4874 [place] [phone]. Farhat Leal Potassium [Moles/Vol] 3.3 mmol/L Critically low 3.5-5.1 [facility] Comment on above: Performed By: #### P HOS, CMP ####[facility] Xanzjfiaum7807 [place] [phone]. Farhat Leal Protein [Mass/Vol] 5.0 g/dL Critically low 6.4-8.2 [facility] Comment on above: Performed By: #### P HOS, CMP ####[facility] Scxkzlisdy9669 [place] [phone]. Farhat Leal Sodium [Moles/Vol] 136 mmol/L Normal 136-145 [facility] Comment on above: Performed By: #### P HOS, CMP ####[facility] Kevjaduakt5227 [place] [phone]. Farhat Leal Urea nitrogen [Mass/Vol] 14.0 mg/dL Normal 7.0-18.0 [facility] Comment on above: Performed By: #### P HOS, CMP ####[facility] Lifvfdtmen4[address] [place], [place] [address]Dr. Farhat Leal Urea nitrogen/Creatinine [Mass ratio] 15.2 mg/mg Normal [facility] Comment on above: Performed By: #### P HOS, CMP ####[facility] Clkaxnbrcg8[address] [place], [place] [address]Dr. Farhat Leal PROTIMEon 12-29-2021 INR Coag (PPP) [Relative time] 1.26 {INR} Normal [facility] Comment on above: Performed By: #### P T ####[facility] Wfnlhdjjsl[address] [place], [place] [address]Dr. Farhat Leal INR GUIDELINES SEE BELOW Normal [facility] Comment on above: Result Comment: MALINA RED INR: 2.0 - 3.0 CONDITIONS NOT LISTED BELOW 2.5 - 3.5 FOR PROSTHETIC HEART VALVE REPLACEMENT 2.5 - 3.5 RECURRENT THROMBOSIS Performed By: #### P T ####[facility] Epvbuywzwu48[address] [place], [place] [address]Dr. Farhat Leal PT Coag (PPP) [Time] 13.4 s Critically high 9.0-11.6 [facility] Comment on above: Performed By: #### P T ####[facility] Quqxqndgzf[address] [place], [place] [address]Dr. Farhat Leal XR MODIFIED BARIUM SWALLOWon 12-25-2021 XR MODIFIED BARIUM SWALLOW Normal [facility] FUNGAL CULTUREon 12-24-2021 Fungus (Mycology) Culture Final report Normal [facility] Comment on above: Performed By: #### C XFUN ####[facility] Uybobbluox89[address] [place], [place] [address]Dr. Farhat Leal Fungus Stain Final report Normal [facility] Comment on above: Performed By: #### C XFUN ####[facility] Woecnbrxcu0[address] [place], [place] [address]Dr. Farhat Leal Result 1 Comment Normal [facility] Comment on above: Result Comment: ANNI/ Calcofluor preparation: no fungus observed. Performed By: #### C XFUN ####[facility] Pmkhcrqovc4279 [place] [address]Dr. Farhat Leal Result Comment: No y east or mold isolated after 4 weeks. VANCOMYCIN TROUGHon 12-21-19 VANCOMYCIN TROUGH 14.4 ug/ml Normal 5.0-20.0 [facility] Comment on above: Performed By: #### V ANCT ####[facility] Ncvgkezqcy64[address] [place], [place] [address]Dr. Farhat Leal CBC AUTO DIFFon 12-14-2021 BASO # 0.0 103/ul Normal 0.0-0.1 [facility] Comment on above: Performed By: #### C BC ####[facility] Rtgxxczxui33[address] [place], [place] [address]Dr. Farhat Leal Basophils/100 WBC (Bld) 0.2 % Normal 0.2-2.0 [facility] Comment on above: Performed By: #### C BC ####[facility] Faozdmoeht8[address] [place], [place] [address]Dr. Farhat Leal EO # 0.2 103/ul Normal 0.0-0.7 [facility] Comment on above: Performed By: #### C BC ####[facility] Ofovnlgoec0544[address] [place], [place] [address]DrSkylar Leal Eosinophils/100 WBC (Bld) 2.1 % Normal 0.9-7.0 [facility] Comment on above: Performed By: #### C BC ####[facility] Kfpkgwbiqx[address] [place], [place] [address]Dr. Farhat Leal Erythrocyte distribution width (RBC) [Ratio] 18.2 % Critically high 11.0-15.0 [facility] Comment on above: Performed By: #### C BC ####[facility] Ggnycxnvsb[address] [place], [place] [address]Dr. Farhat Leal Hematocrit (Bld) [Volume fraction] 25.8 % Critically low 42.0-54.0 [facility] Comment on above: Performed By: #### C BC ####[facility] Gvpujczjlo47[address] [place], [place] [address]Dr. Farhat Leal Hemoglobin (Bld) [Mass/Vol] 8.0 g/dL Critically low 14.0-18.0 [facility] Comment on above: Performed By: #### C BC ####[facility] Wlawyeujwz[address] [place] [address]Dr. Farhat Leal IG # 0.08 10e3/ul Critically high 0.00-0.03 [facility] Comment on above: Performed By: #### C BC ####[facility] Fxlibmcejs2867 [place] [address]Dr. Farhat Elvis IG % 0.7 % Critically high 0.0-0.5 [facility] Comment on above: Performed By: #### C BC ####[facility] Hqzuraaqxv2716 [place] [address]Dr. Farhat Elvis LYMPH # 0.9 103/ul Critically low 1.2-3.8 [facility] Comment on above: Performed By: #### C BC ####[facility] Ccomovbtju8841 [place] [address]Dr. Farhat Elvis Lymphocytes/100 WBC (Bld) 8.7 % Critically low 20.5-60.0 [facility] Comment on above: Performed By: #### C BC ####[facility] Mhztcpaoov4405 [place] [address]Dr. Farhat Elvis MANUAL DIFF REQ NO Normal [facility] Comment on above: Performed By: #### C BC ####[facility] Crhqpprwjf[address] [place], [place] [address]Dr. Farhat Elvis MCH (RBC) [Entitic mass] 30.0 pg Normal 25.9-34.0 [facility] Comment on above: Performed By: #### C BC ####[facility] Qrsrqzvsap[address] [place], [place] [address]Dr. Farhat Elvis MCHC (RBC) [Mass/Vol] 31.0 g/dL Normal 29.9-35.2 [facility] Comment on above: Performed By: #### C BC ####[facility] Msxfiikemx[address] [place], [place] [address]Dr. Farhat Leal MCV (RBC) [Entitic vol] 96.6 fL Critically high 80.0-94.0 [facility] Comment on above: Performed By: #### C BC ####[facility] Unmofdjeua5638 [place] [phone]. Farhat Leal MONO # 0.7 103/ul Normal 0.3-0.8 [facility] Comment on above: Performed By: #### C BC ####[facility] Dcehjigaff5622 [place] [phone]. Farhat Leal Monocytes/100 WBC (Bld) 6.7 % Normal 1.7-12.0 [facility] Comment on above: Performed By: #### C BC ####[facility] Epmbavhovj3506 [place] [address]Dr. Farhat Leal NEUT # 8.8 103/ul Critically high 1.4-6.5 [facility] Comment on above: Performed By: #### C BC ####[facility] Dedplhfdya9107 [place] [address]Dr. Farhat Leal Neutrophils/100 WBC (Bld) 81.6 % Critically high 43.0-75.0 [facility] Comment on above: Performed By: #### C BC ####[facility] Diiycunbiw5242 [place] [address]Dr. Farhat Leal Platelet mean volume (Bld) [Entitic vol] 10.5 fL Normal 9.5-13.5 [facility] Comment on above: Performed By: #### C BC ####[facility] Gwbulgbdjx4175 [place] [phone]. Farhat Elvis PLT 285 103/ul Normal 150-450 [facility] Comment on above: Performed By: #### C BC ####[facility] Kmxxbqhtbz2398 [place] [phone]. Farhat Elvis RBC 2.67 106/ul Critically low 4.70-6.10 [facility] Comment on above: Performed By: #### C BC ####[facility] Nodjhpriyz7[address] [place] [address]Dr. Farhat Elvis WBC 10.7 103/ul Normal 4.0-11.0 [facility] Comment on above: Performed By: #### C BC ####[facility] Zoallgeumu[address]60 [place] [address]Dr. Farhat Elvis PROF CHEM 8 (BAS METB)on Anion gap [Moles/Vol] 12.4 mmol/L Normal [facility] Comment on above: Performed By: #### B MP ####[facility] Pfrwnjdkid7371 [place] [address]Dr. Farhat Leal Calcium [Mass/Vol] 7.8 mg/dL Critically low 8.5-10.1 [facility] Comment on above: Performed By: #### B MP ####[facility] Rvosregbcm1787 [place] [address]Dr. Farhat Leal Chloride [Moles/Vol] 102 mmol/L Normal 98-107 [facility] Comment on above: Performed By: #### B MP ####[facility] [address]fqmdorc[address] [place], [place] [address]Dr. Madelynlorri Leal CO2 [Moles/Vol] 28.1 mmol/L Normal 21.0-32.0 [facility] Comment on above: Performed By: #### B MP ####[facility] Qwxhaeivia1283 [place] [address]Dr. Farhat Leal Creatinine [Mass/Vol] 1.24 mg/dL Normal 0.70-1.30 [facility] Comment on above: Performed By: #### B MP ####[facility] Rxvpcxgjag7245 [place] [address]Dr. Farhat Leal EGFR-AF MOZAMBICAN >60 Normal >=60 [facility] Comment on above: Performed By: #### B MP ####[facility] [address]ssblnfo[address] [place] [id number]. Farhat Leal EGFR-NON AF MOZAMBICAN 57 mL/min/1.73m2 Critically low >=60 [facility] Comment on above: Performed By: #### B MP ####[facility] [address] [place] [address]Dr. Farhat Leal Glucose [Mass/Vol] 296 mg/dL Critically high 74-106 T [facility] Comment on above: Performed By: #### B MP ####[facility] Hgkqcqwhuq[address] [place] [address]Dr. Farhat Leal Potassium [Moles/Vol] 3.5 mmol/L Normal 3.5-5.1 [facility] Comment on above: Performed By: #### B MP ####[facility] Gypfnwup[address] [place], [place] [address]Dr. Farhat Leal Sodium [Moles/Vol] 139 mmol/L Normal 136-145 [facility] Comment on above: Performed By: #### B MP ####[facility] Yzonaouklt[address] [place], [place] [address]Dr. Fahrat Leal Urea nitrogen [Mass/Vol] 27.0 mg/dL Critically high 7.0-18.0 [facility] Comment on above: Performed By: #### B MP ####[facility] Mcwsejtrzs[address] [place], [place] [address]Dr. Farhat Leal Urea nitrogen/Creatinine [Mass ratio] 21.8 mg/mg Normal [facility] Comment on above: Performed By: #### B MP ####[facility] Munxynkvew[address] [place], [place] [address]Dr. Farhat Leal PROTIMEon 12-14-2021 INR Coag (PPP) [Relative time] 3.36 {INR} Normal [facility] Comment on above: Performed By: #### P T ####[facility] Tlmkxvj[address] [place], [place] [address]Dr. Farhat Leal INR GUIDELINES SEE BELOW Normal [facility] Comment on above: Result Comment: MALINA RED INR: 2.0 - 3.0 CONDITIONS NOT LISTED BELOW 2.5 - 3.5 FOR PROSTHETIC HEART VALVE REPLACEMENT 2.5 - 3.5 RECURRENT THROMBOSIS Performed By: #### P T ####[facility] Xkoufmeiyn[address] [place], [place] [address]Dr. Farhat Leal PT Coag (PPP) [Time] 33.5 s Critically high 9.0-11.6 [facility] Comment on above: Performed By: #### P T ####[facility] [address] [place], [place] [address]BpSkylar Leal XR CHEST 1 Von 12-14-2021 XR CHEST 1 V Normal [facility] No Panel Informationon 12-01 BLANK _ [facility] Implant Date 04/22/2012 [facility] CHECKon AMS Duration (ms) 5 of 8 [facility] AMS Fallback Rate (bpm) DDIR [facility] AV Delay Adaptive Paced Minimum (ms) 300 ms [facility] AV Delay Adaptive Rate Maximum (bpm) 130 {beats}/min [facility] AV Delay Adaptive Rate Minimum (bpm) 70 {beats}/min [facility] AV Delay Adaptive Sensed Minimum (ms) 300 ms [facility] AV Delay Paced (ms) 300 ms [facility] AV Delay Sensed (ms) 300 ms [facility] Jaciel LV Pacing Polarity Unknown [facility] Jaciel LV Sensing Polarity Unknown [facility] Jaciel RA Pacing Amplitude (volts) 2.4 V [facility] Jaciel RA Pacing Polarity BI [facility] Jaciel RA Pacing Pulse Width (ms) 0.4 ms [facility] Jaciel RA Sensing Amplitude (mvolts) AUTO [facility] Jaciel RA Sensing Blanking Period (ms) 56 ms [facility] Jaciel RA Sensing Polarity BI [facility] Jaciel RA Sensing Refractory Period (ms) AUTO [facility] Jaciel RV Pacing Amplitude (volts) 3.4 V [facility] Jaciel RV Pacing Polarity BI [facility] Jaciel RV Pacing Pulse Width (ms) 0.4 ms [facility] Jaciel RV Sensing Amplitude (mvolts) AUTO [facility] Jaciel RV Sensing Blanking Period (ms) 30 ms [facility] Jaciel RV Sensing Polarity BI [facility] Jaciel RV Sensing Refractory Period (ms) 250 ms [facility] Hysteresis Rate (bpm) 60 {beats}/min [facility] Lead1 Mfg SUZETTE [facility] Lead2 Mfg SUZETTE [facility] Location RA [facility] Location RV [facility] Lower Rate (bpm) 60 {beats}/min [facility] Max Sensor Rate (bmp) 130 {beats}/min [facility] Model 628649 Monika Dominguez [facility] Model 217704 [facility] Model 668751 [facility] Pacemaker Dependent? NO [facility]-Device Mfg BIO [facility] PM-PMT Intervention ON [facility] PM-PVC Intervention ON [facility] PM-Rate Modulation Acceleration Reaction 4 s [facility] PM-Rate Modulation Deceleration 0.5 m [facility] PM-Rate Modulation Davis 23 [facility] PM-Rate Modulation Threshold Medium [facility] RA Bipolar Impedance ohms 448 ohm [facility] Rhythm AF with controlled ventricular rate. [facility] RV Bipolar Impedance ohms 390 ohm [facility] Serial Number [id number] [facility] Serial Number [id number] [facility] Serial Number [id number] [facility] Thresh RA Sensing Amplitude (mvolts) 2.4 mV [facility] Thresh RV Capture Amplitude (volts) 1.8 V [facility] Thresh RV Capture Duration (ms) 0.4 ms [facility] Thresh RV Sensing Amplitude (mvolts) 2.4 mV [facility] Tracking Rate (bpm) 160 {beats}/min [facility] BNPon 11-28-2021 Natriuretic peptide B (Bld) [Mass/Vol] 70853.0 pg/mL Critically high <=1,800.0 [facility] Comment on above: Performed By: #### C MP, BNP, CRP ####[facility] Qpiyqhmklg8[address] [place], [place] [address]DrSkylar Leal CBC AUTO DIFFon 11-28-2021 BASO # 0.0 103/ul Normal 0.0-0.1 [facility] Comment on above: Performed By: #### C BC ####[facility] Frxhcexkgb[address] [place], [place] [address]Dr. Farhat Leal Basophils/100 WBC (Bld) 0.3 % Normal 0.2-2.0 [facility] Comment on above: Performed By: #### C BC ####[facility] Jqhvthlite[address] [place], [place] [address]DrSkylar Leal EO # 0.1 103/ul Normal 0.0-0.7 [facility] Comment on above: Performed By: #### C BC ####[facility] Zuhiakhgcg038[address] [place], [place] [address]DrSkylar Leal Eosinophils/100 WBC (Bld) 1.0 % Normal 0.9-7.0 [facility] Comment on above: Performed By: #### C BC ####[facility] Aivmetxwvp9414[address] [place], [place] [address]DrSkylar Leal Erythrocyte distribution width (RBC) [Ratio] 14.0 % Normal 11.0-15.0 [facility] Comment on above: Performed By: #### C BC ####[facility] Czpofinyae3[address] [place], [place] [address]DrSkylar Leal Hematocrit (Bld) [Volume fraction] 27.6 % Critically low 42.0-54.0 [facility] Comment on above: Performed By: #### C BC ####[facility] Lizjaghayk938[address] [place], [place] [address]DrSkylar Leal Hemoglobin (Bld) [Mass/Vol] 9.0 g/dL Critically low 14.0-18.0 [facility] Comment on above: Performed By: #### C BC ####[facility] Mhtmysvxnp2048[address] [place], [place] [address]Dr. Farhat Leal IG # 0.12 10e3/ul Critically high 0.00-0.03 [facility] Comment on above: Performed By: #### C BC ####[facility] Drqtgxurzy0460[address] [place], [place] [address]DrSkylar Lael IG % 1.0 % Critically high 0.0-0.5 [facility] Comment on above: Performed By: #### C BC ####[facility] Wioterbtwe7927[address] [place], [place] [address]DrSkylar Leal LYMPH # 1.2 103/ul Normal 1.2-3.8 [facility] Comment on above: Performed By: #### C BC ####[facility] Vfvrurgktv1435[address] [place], [place] [address]DrSkylar Leal Lymphocytes/100 WBC (Bld) 9.9 % Critically low 20.5-60.0 [facility] Comment on above: Performed By: #### C BC ####[facility] Vhorcdhksg[address] [place], [place] [address]DrSkylar Leal MANUAL DIFF REQ NO Normal [facility] Comment on above: Performed By: #### C BC ####[facility] [address]fxth[address] [place] [address]DrSkylar Farhat Elvis MCH (RBC) [Entitic mass] 30.0 pg Normal 25.9-34.0 [facility] Comment on above: Performed By: #### C BC ####[facility] Vsujtwooyi7[address] [place], [place] [address]Dr. Farhat Leal MCHC (RBC) [Mass/Vol] 32.6 g/dL Normal 29.9-35.2 [facility] Comment on above: Performed By: #### C BC ####[facility] Roxyzfwsvp8445[address] [place], [place] [address]DrSkylar Leal MCV (RBC) [Entitic vol] 92.0 fL Normal 80.0-94.0 [facility] Comment on above: Performed By: #### C BC ####[facility] Wmaodyonha[address] [place], [place] [address]DrSkylar Leal MONO # 1.1 103/ul Critically high 0.3-0.8 [facility] Comment on above: Performed By: #### C BC ####[facility] Voplzecsfy[address] [place], [place] [address]DrSkylar Leal Monocytes/100 WBC (Bld) 9.3 % Normal 1.7-12.0 [facility] Comment on above: Performed By: #### C BC ####[facility] Dvzafqicku50[address] [place], [place] [address]DrSkylar Leal NEUT # 9.3 103/ul Critically high 1.4-6.5 [facility] Comment on above: Performed By: #### C BC ####[facility] Qvtzxjapsp[address] [place], [place] [address]DrSkylar Leal Neutrophils/100 WBC (Bld) 78.5 % Critically high 43.0-75.0 [facility] Comment on above: Performed By: #### C BC ####[facility] Iiajnpvaqa26[address] [place], [place] [address]Dr. Farhat Leal Platelet mean volume (Bld) [Entitic vol] 9.6 fL Normal 9.5-13.5 [facility] Comment on above: Performed By: #### C BC ####[facility] [address] [place] [address]Dr. Farhat Leal PLT 357 103/ul Normal 150-450 [facility] Comment on above: Performed By: #### C BC ####[facility] Moxdpuixsl[address] [place] [address]Dr. Farhat Leal RBC 3.00 106/ul Critically low 4.70-6.10 [facility] Comment on above: Performed By: #### C BC ####[facility] Hvubfedobi[address] [place] [address]Dr. Farhat Leal WBC 11.8 103/ul Critically high 4.0-11.0 [facility] Comment on above: Performed By: #### C BC ####[facility] Awrwxaswmn[address] [place] [address]DrSkylar Farhat Elvis CRPon 11-28-2021 CRP 20.9 mg/dL Critically high <=1.0 [facility] Comment on above: Performed By: #### C MP, BNP, CRP ####[facility] Wbzpctoozc[address] [place] [address]Dr. Farhat Leal CULTURE OTHERon 11-28-2021 CULTURE OTHER Normal [facility] Comment on above: Performed By: #### O THCX ####[facility] [address]rbxqycjz[address] [place] [address]Dr. Farhat Leal CULTURE OTHER Normal [facility] Comment on above: Performed By: #### O THCX ####[facility] Jbdkgnvvfx[address] [place] [address]Dr. Farhat Elvis PROF 14(COMP METB)on 022 Albumin [Mass/Vol] 1.4 g/dL Critically low 3.4-5.0 [facility] Comment on above: Performed By: #### C MP, BNP, CRP ####[facility] Tepirwnvmk[address] [place], [place] [address]Dr. Farhat Leal Albumin/Globulin [Mass ratio] 0.4 {ratio} Normal [facility] Comment on above: Performed By: #### C MP, BNP, CRP ####[facility] Qwvgacwzdg260[address] [place] [address]Dr. Farhat Leal ALP [Catalytic activity/Vol] 82 U/L Normal 46-116 [facility] Comment on above: Performed By: #### C MP, BNP, CRP ####[facility] Ieedvqwanb040[address] [place] [address]Dr. Farhat Leal ALT [Catalytic activity/Vol] 20 U/L Normal 16-63 [facility] Comment on above: Performed By: #### C MP, BNP, CRP ####[facility] Nwphzleixh[address] [place] [address]Dr. Madelynlorri Leal Anion gap [Moles/Vol] 13.0 mmol/L Normal [facility] Comment on above: Performed By: #### C MP, BNP, CRP ####[facility] Ibuhwoxdne[address] [place] [address]Dr. Farhat Leal AST [Catalytic activity/Vol] 33 U/L Normal 15-37 [facility] Comment on above: Performed By: #### C MP, BNP, CRP ####[facility] Xlowggreku7235 [place] [address]Dr. Farhat Elvis Bilirubin [Mass/Vol] 0.7 mg/dL Normal 0.2-1.0 [facility] Comment on above: Performed By: #### C MP, BNP, CRP ####[facility] Ieqrchmaic47[address] [place] [address]Dr. Farhat Elvis Calcium [Mass/Vol] 8.4 mg/dL Critically low 8.5-10.1 [facility] Comment on above: Performed By: #### C MP, BNP, CRP ####[facility] Egypaebjlj9906 [place] [address]Dr. Farhat Leal Chloride [Moles/Vol] 100 mmol/L Normal 98-107 [facility] Comment on above: Performed By: #### C MP, BNP, CRP ####[facility] Vyencdrqnx07[address] [place] [address]Dr. Farhat Leal CO2 [Moles/Vol] 23.7 mmol/L Normal 21.0-32.0 [facility] Comment on above: Performed By: #### C MP, BNP, CRP ####[facility] Nnjmikfaep38[address] [place] [address]Dr. Farhat Leal Creatinine [Mass/Vol] 1.70 mg/dL Critically high 0.70-1.30 [facility] Comment on above: Performed By: #### C MP, BNP, CRP ####[facility] Sdrkrsfqti27[address] [place] [address]Dr. Farhat Leal EGFR-AF MOZAMBICAN 48 mL/min/1.73m2 Critically low >=60 [facility] Comment on above: Performed By: #### C MP, BNP, CRP ####[facility] Hqzacrgubn[address] [place], [place] [address]Dr. Farhat Elvis EGFR-NON AF MOZAMBICAN 39 mL/min/1.73m2 Critically low >=60 [facility] Comment on above: Performed By: #### C MP, BNP, CRP ####[facility] Icjkwzhlsk70[address] [place], [place] [address]Dr. Farhat Leal Globulin (S) [Mass/Vol] 3.6 g/dL Normal [facility] Comment on above: Performed By: #### C MP, BNP, CRP ####[facility] Crduqobpqx8040 [place] [address]Dr. Farhat Leal Glucose [Mass/Vol] 232 mg/dL Critically high 74-106 T [facility] Comment on above: Performed By: #### C MP, BNP, CRP ####[facility] Vygokcwbmy03[address] [place] [address]Dr. Farhat Leal Potassium [Moles/Vol] 3.7 mmol/L Normal 3.5-5.1 [facility] Comment on above: Performed By: #### C MP, BNP, CRP ####[facility] Uuursnpubw8844[address] [place], [place] [address]Dr. Farhat Leal Protein [Mass/Vol] 5.0 g/dL Critically low 6.4-8.2 [facility] Comment on above: Performed By: #### C MP, BNP, CRP ####[facility] Rymgczynxp20[address] [place] [address]Dr. Farhat Leal Sodium [Moles/Vol] 133 mmol/L Critically low 136-145 [facility] Comment on above: Performed By: #### C MP, BNP, CRP ####[facility] Tfotspnwkt78[address] [place], [place] [address]Dr. Farhat Leal Urea nitrogen [Mass/Vol] 52.0 mg/dL Critically high 7.0-18.0 [facility] Comment on above: Performed By: #### C MP, BNP, CRP ####[facility] Evqdyzzqlq7[address] [place], [place] [address]Dr. Farhat Leal Urea nitrogen/Creatinine [Mass ratio] 30.6 mg/mg Normal [facility] Comment on above: Performed By: #### C MP, BNP, CRP ####[facility] Qysymlttoo5555[address] [place], [place] [address]Dr. Farhat Leal PROTIMEon 11-28-2021 INR Coag (PPP) [Relative time] 1.29 {INR} Normal [facility] Comment on above: Performed By: #### P T ####[facility] Vfartipwzm[address] [place], [place] [address]Dr. Farhat Leal INR GUIDELINES SEE BELOW Normal [facility] Comment on above: Result Comment: MALINA RED INR: 2.0 - 3.0 CONDITIONS NOT LISTED BELOW 2.5 - 3.5 FOR PROSTHETIC HEART VALVE REPLACEMENT 2.5 - 3.5 RECURRENT THROMBOSIS Performed By: #### P T ####[facility] Innfnfdrtp[address] [place], [place] [address]Dr. Farhat Leal PT Coag (PPP) [Time] 13.7 s Critically high 9.0-11.6 [facility] Comment on above: Performed By: #### P T ####[facility] Glttwokpjc14[address] [place], [place] [address]Dr. Farhat Leal [facility] 77 mm/hr Critically high <=20 [facility] Comment on above: Performed By: #### S EDR ####[facility] Jcvmbbwduf27[address] [place], [place] [address]Dr. Farhat Leal XR CHEST 2 Von 11-28-2021 XR CHEST 2 V Normal [facility] BNPon 11-27-2021 Natriuretic peptide B (Bld) [Mass/Vol] 75301.0 pg/mL Critically high <=1,800.0 [facility] Comment on above: Performed By: #### B SALES FACILITATOR, CMP, CRP ####[facility] Josgdkgatd7495[address] [place], [place] [address]Dr. Farhat Leal CBC AUTO DIFFon 11-27-2021 BASO # 0.0 103/ul Normal 0.0-0.1 [facility] Comment on above: Performed By: #### C BC ####[facility] Kvirfipfbx[address]23[address] [place], [place] [address]Dr. Farhat Leal Basophils/100 WBC (Bld) 0.2 % Normal 0.2-2.0 [facility] Comment on above: Performed By: #### C BC ####[facility] Kjhsyyqsva4[address] [place], [place] [address]Dr. Farhat Leal EO # 0.2 103/ul Normal 0.0-0.7 [facility] Comment on above: Performed By: #### C BC ####[facility] Qlsxrlfvvf4[address] [place], [place] [address]Dr. Farhat Leal Eosinophils/100 WBC (Bld) 1.9 % Normal 0.9-7.0 [facility] Comment on above: Performed By: #### C BC ####[facility] Bwlzvffpeu[address] [place], [place] [address]Dr. Farhat Leal Erythrocyte distribution width (RBC) [Ratio] 13.9 % Normal 11.0-15.0 [facility] Comment on above: Performed By: #### C BC ####[facility] Vlueusqnmf04[address] [place], [place] [address]Dr. Farhat Leal Hematocrit (Bld) [Volume fraction] 28.7 % Critically low 42.0-54.0 [facility] Comment on above: Performed By: #### C BC ####[facility] [address]parvchru[address] [place] [phone] Farhat Elvis Hemoglobin (Bld) [Mass/Vol] 9.3 g/dL Critically low 14.0-18.0 [facility] Comment on above: Performed By: #### C BC ####[facility] Dxpjplabwu3286 [place] [phone] Joshilorri Elvis IG # 0.14 10e3/ul Critically high 0.00-0.03 [facility] Comment on above: Performed By: #### C BC ####[facility] Ksgsxbxgke8644 [place] [address]DrSkylar Leal IG % 1.2 % Critically high 0.0-0.5 [facility] Comment on above: Performed By: #### C BC ####[facility] Sltenhyspa[address] [place], [place] [address]DrSkylar Leal LYMPH # 1.1 103/ul Critically low 1.2-3.8 [facility] Comment on above: Performed By: #### C BC ####[facility] Zqmxlxaerz1639 [place] [phone] Leal Lymphocytes/100 WBC (Bld) 9.4 % Critically low 20.5-60.0 [facility] Comment on above: Performed By: #### C BC ####[facility] Xucyivhanx8[address] [place] [address]DrSkylar Leal MANUAL DIFF REQ NO Normal [facility] Comment on above: Performed By: #### C BC ####[facility] Yfpcwapanl9[address] [place] [phone] Leal MCH (RBC) [Entitic mass] 29.7 pg Normal 25.9-34.0 [facility] Comment on above: Performed By: #### C BC ####[facility] Fjovotvgyk2863 [place] [phone] Leal MCHC (RBC) [Mass/Vol] 32.4 g/dL Normal 29.9-35.2 [facility] Comment on above: Performed By: #### C BC ####[facility] Jrmnvqkpqz2286 [place] [address]DrSkylar Leal MCV (RBC) [Entitic vol] 91.7 fL Normal 80.0-94.0 [facility] Comment on above: Performed By: #### C BC ####[facility] Svrndwgdac6096 [place] [address]DrSkylar Leal MONO # 1.1 103/ul Critically high 0.3-0.8 [facility] Comment on above: Performed By: #### C BC ####[facility] Dosxsdffzt4735 [place] [address]DrSkylar Leal Monocytes/100 WBC (Bld) 9.7 % Normal 1.7-12.0 [facility] Comment on above: Performed By: #### C BC ####[facility] D[address]elfgknzj[address] [place], [place] [address]DrSkylar Leal NEUT # 9.2 103/ul Critically high 1.4-6.5 [facility] Comment on above: Performed By: #### C BC ####[facility] Rmbqrbhbvb[address] [place], [place] [address]DrSkylar Leal Neutrophils/100 WBC (Bld) 77.6 % Critically high 43.0-75.0 [facility] Comment on above: Performed By: #### C BC ####[facility] Oddwalrexe64[address] [place], [place] [address]DrSkylar Leal Platelet mean volume (Bld) [Entitic vol] 9.5 fL Normal 9.5-13.5 [facility] Comment on above: Performed By: #### C BC ####[facility] Wsayxlolcx2625[address] [place], [place] [address]DrSkylar Leal PLT 375 103/ul Normal 150-450 [facility] Comment on above: Performed By: #### C BC ####[facility] Towiqdotof[address] [place], [place] [id number] Leal RBC 3.13 106/ul Critically low 4.70-6.10 [facility] Comment on above: Performed By: #### C BC ####[facility] Dupubprjxw[address] [place] [address]Dr. Farhat Leal WBC 11.8 103/ul Critically high 4.0-11.0 [facility] Comment on above: Performed By: #### C BC ####[facility] Qvzejqzuul6615 [place] [phone]. Farhat Leal CRPon 11-27-2021 CRP 24.5 mg/dL Critically high <=1.0 [facility] Comment on above: Performed By: #### B SALES FACILITATOR, CMP, CRP ####[facility] Rpevgkclpn1457 [place] [address]Dr. Madelynlorri Leal CULTURE OTHERon 11-27-2021 CULTURE OTHER Normal [facility] Comment on above: Performed By: #### O THCX ####[facility] Jdkirgamjt43[address] [place], [place] [address]Dr. Madelynlorri Leal CULTURE OTHER Normal [facility] Comment on above: Performed By: #### O THCX ####[facility] Yaddrovkvp[address] [place], [place] [address]Dr. Madelynlorri Leal CULTURE WOUNDon 11-27-2021 CULTURE WOUND Normal [facility] Comment on above: Performed By: #### W OUNDCX ####[facility] Xetbpyolhj[address] [place], [place] [address]Dr. Farhat Leal POINT OF CARE GLUCOSEon 11-15 Glucose [Mass/Vol] 147 mg/dL Critically high 74-106 [facility] Comment on above: Performed By: #### P OCGLUC ####[facility] Kwirfkmexy85[address] [place], [place] [address]Dr. Farhat Leal PROF 14(COMP METB)on 022 Albumin [Mass/Vol] 1.4 g/dL Critically low 3.4-5.0 [facility] Comment on above: Performed By: #### B SALES FACILITATOR, CMP, CRP ####[facility] Dorllownxi[address] [place] [address]Dr. Madelynlorri Leal Albumin/Globulin [Mass ratio] 0.4 {ratio} Normal [facility] Comment on above: Performed By: #### B SALES FACILITATOR, CMP, CRP ####[facility] Wcoqyyejxe4824 [place] [address]Dr. Farhat Leal ALP [Catalytic activity/Vol] 82 U/L Normal 46-116 [facility] Comment on above: Performed By: #### B SALES FACILITATOR, CMP, CRP ####[facility] Nqhgykzzqs25[address] [place], [place] [address]Dr. Farhat Elvis ALT [Catalytic activity/Vol] 22 U/L Normal 16-63 [facility] Comment on above: Performed By: #### B SALES FACILITATOR, CMP, CRP ####[facility] Yxajtnsphk[address] [place], [place] [address]Dr. Farhat Leal Anion gap [Moles/Vol] 14.2 mmol/L Normal [facility] Comment on above: Performed By: #### B SALES FACILITATOR, CMP, CRP ####[facility] [address]imx[address]xxq[address] [place], [place] [address]Dr. Farhat Elvis AST [Catalytic activity/Vol] 35 U/L Normal 15-37 [facility] Comment on above: Performed By: #### B SALES FACILITATOR, CMP, CRP ####[facility] [address]zbiuzyw[address] [place], [place] [address]Dr. Farhat Leal Bilirubin [Mass/Vol] 0.7 mg/dL Normal 0.2-1.0 [facility] Comment on above: Performed By: #### B SALES FACILITATOR, CMP, CRP ####[facility] U[address]znazxcw[address] [place], [place] [address]Dr. Farhat Leal Calcium [Mass/Vol] 8.2 mg/dL Critically low 8.5-10.1 [facility] Comment on above: Performed By: #### B SALES FACILITATOR, CMP, CRP ####[facility] [address] [place] [address]Dr. Farhat Leal Chloride [Moles/Vol] 99 mmol/L Normal 98-107 [facility] Comment on above: Performed By: #### B SALES FACILITATOR, CMP, CRP ####[facility] [address]dzudpze[address] [place] [address]Dr. Farhat Leal CO2 [Moles/Vol] 22.6 mmol/L Normal 21.0-32.0 [facility] Comment on above: Performed By: #### B SALES FACILITATOR, CMP, CRP ####[facility] X[address]ogdikld[address] [place] [address]Dr. Farhat Leal Creatinine [Mass/Vol] 1.73 mg/dL Critically high 0.70-1.30 [facility] Comment on above: Performed By: #### B SALES FACILITATOR, CMP, CRP ####[facility] [address]yl[address] [place] [address]Dr. Farhat Leal EGFR-AF MOZAMBICAN 47 mL/min/1.73m2 Critically low >=60 [facility] Comment on above: Performed By: #### B SALES FACILITATOR, CMP, CRP ####[facility] [address]lvakmv[address] [place] [address]Dr. Farhat Leal EGFR-NON AF MOZAMBICAN 38 mL/min/1.73m2 Critically low >=60 [facility] Comment on above: Performed By: #### B SALES FACILITATOR, CMP, CRP ####[facility] [address] [place] [address]Dr. Farhat Leal Globulin (S) [Mass/Vol] 3.7 g/dL Normal [facility] Comment on above: Performed By: #### B SALES FACILITATOR, CMP, CRP ####[facility] [address]bltadbct[address] [place] [address]Dr. Farhat Leal Glucose [Mass/Vol] 220 mg/dL Critically high 74-106 T [facility] Comment on above: Performed By: #### B SALES FACILITATOR, CMP, CRP ####[facility] Bxmigxmwqv[address] [place] [address]Dr. Farhat Leal Potassium [Moles/Vol] 3.8 mmol/L Normal 3.5-5.1 [facility] Comment on above: Performed By: #### B SALES FACILITATOR, CMP, CRP ####[facility] [address]ncmopzw[address] [place] [address]Dr. Farhat Leal Protein [Mass/Vol] 5.1 g/dL Critically low 6.4-8.2 [facility] Comment on above: Performed By: #### B SALES FACILITATOR, CMP, CRP ####[facility] Zrehlwxfxz[address] [place] [address]Dr. Farhat Leal Sodium [Moles/Vol] 132 mmol/L Critically low 136-145 [facility] Comment on above: Performed By: #### B SALES FACILITATOR, CMP, CRP ####[facility] Umpcdmetmm[address] [place], [place] [address]Dr. Farhat Leal Urea nitrogen [Mass/Vol] 49.0 mg/dL Critically high 7.0-18.0 [facility] Comment on above: Performed By: #### B SALES FACILITATOR, CMP, CRP ####[facility] Pmhzqwxoal[address] [place], [place] [address]Dr. Farhat Leal Urea nitrogen/Creatinine [Mass ratio] 28.3 mg/mg Normal [facility] Comment on above: Performed By: #### B SALES FACILITATOR, CMP, CRP ####[facility] Ppugceevmm[address] [place], [place] [address]Dr. Farhat Leal PROTIMEon 11-27-2021 INR Coag (PPP) [Relative time] 1.25 {INR} Normal [facility] Comment on above: Performed By: #### P T ####[facility] Zfbvvilsxm[address] [place], [place] [address]Dr. Farhat Leal INR GUIDELINES SEE BELOW Normal [facility] Comment on above: Result Comment: MALINA RED INR: 2.0 - 3.0 CONDITIONS NOT LISTED BELOW 2.5 - 3.5 FOR PROSTHETIC HEART VALVE REPLACEMENT 2.5 - 3.5 RECURRENT THROMBOSIS Performed By: #### P T ####[facility] Zgoxjgljbv[address] [place], [place] [address]Dr. Farhat Leal PT Coag (PPP) [Time] 13.3 s Critically high 9.0-11.6 [facility] Comment on above: Performed By: #### P T ####[facility] Ywxohvpmzc[address] [place], [place] [address]DrSkylar Leal [facility]ATE 60 mm/hr Critically high <=20 [facility] Comment on above: Performed By: #### S EDR ####[facility] Vmxhkmrpte[address] [place], [place] [address]Dr. Farhat Leal VANCOMYCIN TROUGHon 11-28-19 VANCOMYCIN TROUGH 21.2 ug/ml Critically high 5.0-20.0 [facility] Comment on above: Performed By: #### V ANCT ####[facility] Fhalesiflz[address] [place], [place] [address]Dr. Farhat Leal XR CHEST 1 Von 11-27-2021 XR CHEST 1 V Normal [facility] BNPon 11-26-2021 Natriuretic peptide B (Bld) [Mass/Vol] 63165.0 pg/mL Critically high <=1,800.0 [facility] Comment on above: Performed By: #### B SALES FACILITATOR, CRP, CMP ####[facility] Sncwidoemd[address] [place], [place] [address]Dr. Farhat Leal CBC AUTO DIFFon 11-26-2021 BASO # 0.0 103/ul Normal 0.0-0.1 [facility] Comment on above: Performed By: #### C BC ####[facility] Yujbxgqlhg14[address] [place], [place] [address]Dr. Farhat Leal Basophils/100 WBC (Bld) 0.2 % Normal 0.2-2.0 [facility] Comment on above: Performed By: #### C BC ####[facility] Pfaezdwtwn5[address] [place], [place] [address]DrSkylar Leal EO # 0.0 103/ul Normal 0.0-0.7 [facility] Comment on above: Performed By: #### C BC ####[facility] Uncliygsxv0411[address] [place], [place] [address]DrSkylar Leal Eosinophils/100 WBC (Bld) 0.3 % Critically low 0.9-7.0 [facility] Comment on above: Performed By: #### C BC ####[facility] Mnqunmbahx13[address] [place], [place] [address]DrSkylar Leal Erythrocyte distribution width (RBC) [Ratio] 13.9 % Normal 11.0-15.0 [facility] Comment on above: Performed By: #### C BC ####[facility] [address]jllcdxd[address] [place] [address]DrSkylar Leal Hematocrit (Bld) [Volume fraction] 27.3 % Critically low 42.0-54.0 [facility] Comment on above: Performed By: #### C BC ####[facility] Ppgkbdzrut4543[address] [place], [place] [address]DrSkylar Leal Hemoglobin (Bld) [Mass/Vol] 8.8 g/dL Critically low 14.0-18.0 [facility] Comment on above: Performed By: #### C BC ####[facility] Jxyefcdwef[address] [place], [place] [address]DrSkylar Leal IG # 0.17 10e3/ul Critically high 0.00-0.03 [facility] Comment on above: Performed By: #### C BC ####[facility] Spkhastanc[address] [place], [place] [address]DrSkylar Leal IG % 1.2 % Critically high 0.0-0.5 [facility] Comment on above: Performed By: #### C BC ####[facility] Ogotflixnw[address] [place], [place] [address]DrSkylar Leal LYMPH # 0.7 103/ul Critically low 1.2-3.8 [facility] Comment on above: Performed By: #### C BC ####[facility] Vkdjbaxiki22[address] [place], [place] [address]DrSkylar Leal Lymphocytes/100 WBC (Bld) 4.8 % Critically low 20.5-60.0 [facility] Comment on above: Performed By: #### C BC ####[facility] Gnqaiybrnk[address] [place], [place] [address]DrSkylar Leal MANUAL DIFF REQ NO Normal [facility] Comment on above: Performed By: #### C BC ####[facility] Vgsggxmcbd67[address] [place], [place] [address]DrSkylar Leal MCH (RBC) [Entitic mass] 29.9 pg Normal 25.9-34.0 [facility] Comment on above: Performed By: #### C BC ####[facility] [address]vnwrhib[address] [place] [address]DrSkylar Leal MCHC (RBC) [Mass/Vol] 32.2 g/dL Normal 29.9-35.2 [facility] Comment on above: Performed By: #### C BC ####[facility] Qzpknifpda022[address] [place] [address]DrSkylar Leal MCV (RBC) [Entitic vol] 92.9 fL Normal 80.0-94.0 [facility] Comment on above: Performed By: #### C BC ####[facility] Zepbsrepbf5[address] [place], [place] [address]DrSkylar Leal MONO # 1.3 103/ul Critically high 0.3-0.8 [facility] Comment on above: Performed By: #### C BC ####[facility] Asjvcathef[address] [place], [place] [address]DrSkylar Leal Monocytes/100 WBC (Bld) 9.6 % Normal 1.7-12.0 [facility] Comment on above: Performed By: #### C BC ####[facility] Exffrnzndi[address] [place], [place] [address]DrSkylar Leal NEUT # 11.4 103/ul Critically high 1.4-6.5 [facility] Comment on above: Performed By: #### C BC ####[facility] Hqqpgthkly[address] [place], [place] [address]DrSkylar Leal Neutrophils/100 WBC (Bld) 83.9 % Critically high 43.0-75.0 [facility] Comment on above: Performed By: #### C BC ####[facility] Pdqtxesmss[address] [place], [place] [address]DrSkylar Leal Platelet mean volume (Bld) [Entitic vol] 9.6 fL Normal 9.5-13.5 [facility] Comment on above: Performed By: #### C BC ####[facility] Bkihbwojsq[address] [place], [place] [address]Dr. Farhat Leal PLT 395 103/ul Normal 150-450 [facility] Comment on above: Performed By: #### C BC ####[facility] N[address]gowvelm[address] [place] [address]Dr. Farhat Leal RBC 2.94 106/ul Critically low 4.70-6.10 [facility] Comment on above: Performed By: #### C BC ####[facility] [address]yvkxdcog[address] [place] [address]Dr. Farhat Leal WBC 13.6 103/ul Critically high 4.0-11.0 [facility] Comment on above: Performed By: #### C BC ####[facility] T[address]jvncbvu[address] [place] [address]Dr. Farhat Leal CRPon 11-26-2021 CRP [Mass/Vol] mg/L Critically high <=1.0 [facility] Comment on above: Performed By: #### B SALES FACILITATOR, CRP, CMP ####[facility] [address]ftlsajre[address] [place] [address]Dr. Farhat Leal PROF 14(COMP METB)on 022 Albumin [Mass/Vol] 1.5 g/dL Critically low 3.4-5.0 [facility] Comment on above: Performed By: #### B SALES FACILITATOR, CRP, CMP ####[facility] Wz[address]zffsat[address] [place] [address]Dr. Farhat Leal Albumin/Globulin [Mass ratio] 0.4 {ratio} Normal [facility] Comment on above: Performed By: #### B SALES FACILITATOR, CRP, CMP ####[facility] Vfwjeugjyd[address] [place] [address]Dr. Farhat Leal ALP [Catalytic activity/Vol] 88 U/L Normal 46-116 [facility] Comment on above: Performed By: #### B SALES FACILITATOR, CRP, CMP ####[facility] Orwlfbhuoo46[address] [place] [address]Dr. Farhat Leal ALT [Catalytic activity/Vol] 29 U/L Normal 16-63 [facility] Comment on above: Performed By: #### B SALES FACILITATOR, CRP, CMP ####[facility] [address]udogalbo[address] [place] [id number]. Farhat Leal Anion gap [Moles/Vol] 13.3 mmol/L Normal [facility] Comment on above: Performed By: #### B SALES FACILITATOR, CRP, CMP ####[facility] J[address]hbbdwagb37[address] [place] [address]Dr. Farhat Leal AST [Catalytic activity/Vol] 32 U/L Normal 15-37 [facility] Comment on above: Performed By: #### B SALES FACILITATOR, CRP, CMP ####[facility] Vuyfzutung[address] [place] [address]Dr. Farhat Leal Bilirubin [Mass/Vol] 0.6 mg/dL Normal 0.2-1.0 [facility] Comment on above: Performed By: #### B SALES FACILITATOR, CRP, CMP ####[facility] Frlxoseuyf5368 [place] [address]Dr. Farhat Leal Calcium [Mass/Vol] 8.0 mg/dL Critically low 8.5-10.1 [facility] Comment on above: Performed By: #### B SALES FACILITATOR, CRP, CMP ####[facility] Ymgeqfocxd7586 [place] [address]Dr. Farhat Leal Chloride [Moles/Vol] 98 mmol/L Normal 98-107 [facility] Comment on above: Performed By: #### B SALES FACILITATOR, CRP, CMP ####[facility] Weuenahgud[address] [place] [address]Dr. aFrhat Leal CO2 [Moles/Vol] 23.7 mmol/L Normal 21.0-32.0 [facility] Comment on above: Performed By: #### B SALES FACILITATOR, CRP, CMP ####[facility] Xxbiygbidj7[address] [place] [address]Dr. Farhat Leal Creatinine [Mass/Vol] 2.08 mg/dL Critically high 0.70-1.30 [facility] Comment on above: Performed By: #### B SALES FACILITATOR, CRP, CMP ####[facility] Clamzlbxkx57[address] [place] [address]Dr. Farhat Lael EGFR-AF MOZAMBICAN 38 mL/min/1.73m2 Critically low >=60 [facility] Comment on above: Performed By: #### B SALES FACILITATOR, CRP, CMP ####[facility] Xnezqfrrst69[address] [place] [address]Dr. Farhat Leal EGFR-NON AF MOZAMBICAN 31 mL/min/1.73m2 Critically low >=60 [facility] Comment on above: Performed By: #### B SALES FACILITATOR, CRP, CMP ####[facility] Nmgwzcadfx[address]25[address] [place], [place] [address]Dr. Farhat Leal Globulin (S) [Mass/Vol] 3.7 g/dL Normal [facility] Comment on above: Performed By: #### B SALES FACILITATOR, CRP, CMP ####[facility] Jxdksmkald[address] [place], [place] [address]Dr. Farhat Leal Glucose [Mass/Vol] 315 mg/dL Critically high 74-106 T [facility] Comment on above: Performed By: #### B SALES FACILITATOR, CRP, CMP ####[facility] Uivqwitcql[address] [place], [place] [address]Dr. Farhat Leal Potassium [Moles/Vol] 4.0 mmol/L Normal 3.5-5.1 [facility] Comment on above: Performed By: #### B SALES FACILITATOR, CRP, CMP ####[facility] Hoemahgdtb[address] [place], [place] [address]Dr. Farhat Leal Protein [Mass/Vol] 5.2 g/dL Critically low 6.4-8.2 [facility] Comment on above: Performed By: #### B SALES FACILITATOR, CRP, CMP ####[facility] Lllijbwsib69[address] [place], [place] [address]Dr. Farhat Leal Sodium [Moles/Vol] 131 mmol/L Critically low 136-145 [facility] Comment on above: Performed By: #### B SALES FACILITATOR, CRP, CMP ####[facility] Vadktreztr[address] [place], [place] [address]Dr. Farhat Leal Urea nitrogen [Mass/Vol] 50.0 mg/dL Critically high 7.0-18.0 [facility] Comment on above: Performed By: #### B SALES FACILITATOR, CRP, CMP ####[facility] Dsdnbqfjcn5734 [place] [address]Dr. Farhat Leal Urea nitrogen/Creatinine [Mass ratio] 24.0 mg/mg Normal [facility] Comment on above: Performed By: #### B SALES FACILITATOR, CRP, CMP ####[facility] Gnxmzpkgqj6260 [place] [address]Dr. Farhat Leal PROTIMEon 11-26-2021 INR Coag (PPP) [Relative time] 1.31 {INR} Normal [facility] Comment on above: Performed By: #### P T ####[facility] Furzilmoqs94[address] [place], [place] [address]Dr. Farhat Leal INR GUIDELINES SEE BELOW Normal [facility] Comment on above: Result Comment: MALINA RED INR: 2.0 - 3.0 CONDITIONS NOT LISTED BELOW 2.5 - 3.5 FOR PROSTHETIC HEART VALVE REPLACEMENT 2.5 - 3.5 RECURRENT THROMBOSIS Performed By: #### P T ####[facility] Tpmfziamys[address] [place], [place] [address]Dr. Farhat Leal PT Coag (PPP) [Time] 13.9 s Critically high 9.0-11.6 [facility] Comment on above: Performed By: #### P T ####[facility] Gfthclmxds4[address] [place], [place] [address]Dr. Farhat Leal SED RATE [place] [facility] 2021 SED RATE 87 mm/hr Critically high <=20 [facility] Comment on above: Performed By: #### S EDR ####[facility] Fjqnpzspoa[address] [place], [place] [address]Dr. Farhat Leal BNPon 11-25-2021 Natriuretic peptide B (Bld) [Mass/Vol] 99289.0 pg/mL Critically high <=1,800.0 [facility] Comment on above: Performed By: #### C MP, BNP, CRP ####[facility] Btacssnbee13[address] [place], [place] [address]Dr. Farhat Leal CBC AUTO DIFFon 11-25-2021 BASO # 0.0 103/ul Normal 0.0-0.1 [facility] Comment on above: Performed By: #### C BC ####[facility] Cexeuiklcs[address] [place] [phone]. Farhat Leal Basophils/100 WBC (Bld) 0.4 % Normal 0.2-2.0 [facility] Comment on above: Performed By: #### C BC ####[facility] Lzqlupbmac6752 [place] [phone]. Fahrat Leal EO # 0.1 103/ul Normal 0.0-0.7 [facility] Comment on above: Performed By: #### C BC ####[facility] [address]le[address]shd[address] [place], [place] [id number]. Farhat Leal Eosinophils/100 WBC (Bld) 1.2 % Normal 0.9-7.0 [facility] Comment on above: Performed By: #### C BC ####[facility] Kjpqwqnvsh9[address] [place], [place] [address]Dr. Farhat Leal Erythrocyte distribution width (RBC) [Ratio] 13.7 % Normal 11.0-15.0 [facility] Comment on above: Performed By: #### C BC ####[facility] K[address]okvzjb66[address] [place], [place] [address]Dr. Farhat Leal Hematocrit (Bld) [Volume fraction] 29.6 % Critically low 42.0-54.0 [facility] Comment on above: Performed By: #### C BC ####[facility] Uhfktlpkki[address] [place], [place] [address]Dr. Farhat Leal Hemoglobin (Bld) [Mass/Vol] 9.3 g/dL Critically low 14.0-18.0 [facility] Comment on above: Performed By: #### C BC ####[facility] Qpkqsqpvrf27[address] [place], [place] [address]Dr. Farhat Leal IG # 0.15 10e3/ul Critically high 0.00-0.03 [facility] Comment on above: Performed By: #### C BC ####[facility] [address] [place], [place] [id number]. Farhat Leal IG % 1.4 % Critically high 0.0-0.5 [facility] Comment on above: Performed By: #### C BC ####[facility] [address]xplfsyp[address] [place] [address]Dr. Farhat Leal LYMPH # 0.8 103/ul Critically low 1.2-3.8 [facility] Comment on above: Performed By: #### C BC ####[facility] Qhxrjcaboh1421 [place] [address]Dr. Farhat Leal Lymphocytes/100 WBC (Bld) 7.3 % Critically low 20.5-60.0 [facility] Comment on above: Performed By: #### C BC ####[facility] Byojmbughx[address] [place] [address]Dr. Farhat Leal MANUAL DIFF REQ NO Normal [facility] Comment on above: Performed By: #### C BC ####[facility] Iyshzrwriz70[address] [place] [address]Dr. Farhat Leal MCH (RBC) [Entitic mass] 29.3 pg Normal 25.9-34.0 [facility] Comment on above: Performed By: #### C BC ####[facility] Ltmlarrblb[address] [place], [place] [address]Dr. Farhat Leal MCHC (RBC) [Mass/Vol] 31.4 g/dL Normal 29.9-35.2 [facility] Comment on above: Performed By: #### C BC ####[facility] Elzqxkbcrx32[address] [place] [address]Dr. Farhat Leal MCV (RBC) [Entitic vol] 93.4 fL Normal 80.0-94.0 [facility] Comment on above: Performed By: #### C BC ####[facility] Ysntupuuuk[address] [place] [address]Dr. Farhat Leal MONO # 1.3 103/ul Critically high 0.3-0.8 [facility] Comment on above: Performed By: #### C BC ####[facility] Uikrbmgpnn6424 [place] [phone]. Farhat Leal Monocytes/100 WBC (Bld) 12.3 % Critically high 1.7-12.0 [facility] Comment on above: Performed By: #### C BC ####[facility] Idseuxwojh36[address] [place] [address]Dr. Farhat Leal NEUT # 8.4 103/ul Critically high 1.4-6.5 [facility] Comment on above: Performed By: #### C BC ####[facility] Liemcghxvq55[address] [place] [address]DrSkylar Leal Neutrophils/100 WBC (Bld) 77.4 % Critically high 43.0-75.0 [facility] Comment on above: Performed By: #### C BC ####[facility] Zlztuodqgt9662 [place] [address]DrSkylar Leal Platelet mean volume (Bld) [Entitic vol] 9.8 fL Normal 9.5-13.5 [facility] Comment on above: Performed By: #### C BC ####[facility] Uvgzospjmd[address] [place], [place] [address]Dr. Farhat Leal PLT 390 103/ul Normal 150-450 [facility] Comment on above: Performed By: #### C BC ####[facility] Omratiqtfc3[address] [place], [place] [address]Dr. Farhat Leal RBC 3.17 106/ul Critically low 4.70-6.10 [facility] Comment on above: Performed By: #### C BC ####[facility] Ymbrzvlnfo7066 [place] [address]DrSkylar Leal WBC 10.9 103/ul Normal 4.0-11.0 [facility] Comment on above: Performed By: #### C BC ####[facility] [address]wex[address] [place] [phone] Leal CRPon 11-25-2021 CRP 27.2 mg/dL Critically high <=1.0 [facility] Comment on above: Performed By: #### C MP, BNP, CRP ####[facility] Gxuxigwewf2901 [place] [address]DrSkylar Leal PROF 14(COMP METB)on 022 Albumin [Mass/Vol] 1.5 g/dL Critically low 3.4-5.0 [facility] Comment on above: Performed By: #### C MP, BNP, CRP ####[facility] Ylxdqtsgqc3670 [place] [address]Dr. Farhat Leal Albumin/Globulin [Mass ratio] 0.4 {ratio} Normal [facility] Comment on above: Performed By: #### C MP, BNP, CRP ####[facility] Phntrmxmud2556 [place] [address]Dr. Farhat Leal ALP [Catalytic activity/Vol] 86 U/L Normal 46-116 [facility] Comment on above: Performed By: #### C MP, BNP, CRP ####[facility] Uibdybbqgh2468 [place] [address]Dr. Farhat Leal ALT [Catalytic activity/Vol] 34 U/L Normal 16-63 [facility] Comment on above: Performed By: #### C MP, BNP, CRP ####[facility] Kapxiujpyo[address] [place], [place] [address]Dr. Farhat Leal Anion gap [Moles/Vol] 17.8 mmol/L Normal [facility] Comment on above: Performed By: #### C MP, BNP, CRP ####[facility] Bnfrnftrrf[address] [place], [place] [address]Dr. Farhat Leal AST [Catalytic activity/Vol] 48 U/L Critically high 15-37 [facility] Comment on above: Performed By: #### C MP, BNP, CRP ####[facility] Akfylutlxp[address] [place] [address]Dr. Farhat Leal Bilirubin [Mass/Vol] 0.8 mg/dL Normal 0.2-1.0 [facility] Comment on above: Performed By: #### C MP, BNP, CRP ####[facility] Qqtnxriara[address] [place], [place] [address]Dr. Farhat Leal Calcium [Mass/Vol] 8.3 mg/dL Critically low 8.5-10.1 [facility] Comment on above: Performed By: #### C MP, BNP, CRP ####[facility] Olqqkgdecx8195 [place] [address]Dr. Farhat Leal Chloride [Moles/Vol] 97 mmol/L Critically low 98-107 [facility] Comment on above: Performed By: #### C MP, BNP, CRP ####[facility] Lzbabbpjzb2758 [place] [address]Dr. Farhat Leal CO2 [Moles/Vol] 23.0 mmol/L Normal 21.0-32.0 [facility] Comment on above: Performed By: #### C MP, BNP, CRP ####[facility] Tjrwclnzhx[address] [place], [place] [address]Dr. Farhat Leal Creatinine [Mass/Vol] 1.68 mg/dL Critically high 0.70-1.30 [facility] Comment on above: Performed By: #### C MP, BNP, CRP ####[facility] T[address]ijpjfwbj[address] [place], [place] [address]Dr. Farhat Elvis EGFR-AF MOZAMBICAN 48 mL/min/1.73m2 Critically low >=60 [facility] Comment on above: Performed By: #### C MP, BNP, CRP ####[facility] Lbergjbskt2[address] [place], [place] [address]Dr. Farhat Leal EGFR-NON AF MOZAMBICAN 40 mL/min/1.73m2 Critically low >=60 [facility] Comment on above: Performed By: #### C MP, BNP, CRP ####[facility] [address]kndireeel[address] [place], [place] [address]Dr. Farhat Leal Globulin (S) [Mass/Vol] 3.9 g/dL Normal [facility] Comment on above: Performed By: #### C MP, BNP, CRP ####[facility] Gbyipifonv[address] [place], [place] [address]Dr. Farhat Leal Glucose [Mass/Vol] 282 mg/dL Critically high 74-106 T [facility] Comment on above: Performed By: #### C MP, BNP, CRP ####[facility] Vwdqxiuacf[address] [place], [place] [address]Dr. Farhat Leal Potassium [Moles/Vol] 4.8 mmol/L Normal 3.5-5.1 [facility] Comment on above: Performed By: #### C MP, BNP, CRP ####[facility] Zzvajvqycr862130 [address] [place], [place] [address]Dr. Farhat Leal Protein [Mass/Vol] 5.4 g/dL Critically low 6.4-8.2 [facility] Comment on above: Performed By: #### C MP, BNP, CRP ####[facility] Eicurrsjjr[address] [place], [place] [address]Dr. Farhat Leal Sodium [Moles/Vol] 133 mmol/L Critically low 136-145 [facility] Comment on above: Performed By: #### C MP, BNP, CRP ####[facility] Mocpgfgchd[address] [place], [place] [address]Dr. Farhat Leal Urea nitrogen [Mass/Vol] 40.0 mg/dL Critically high 7.0-18.0 [facility] Comment on above: Performed By: #### C MP, BNP, CRP ####[facility] Mbslaeayen[address] [place], [place] [address]Dr. Farhat Leal Urea nitrogen/Creatinine [Mass ratio] 23.8 mg/mg Normal [facility] Comment on above: Performed By: #### C MP, BNP, CRP ####[facility] Keycsadhbx8730[address] [place], [place] [address]Dr. Farhat Leal PROTIMEon 11-25-2021 INR Coag (PPP) [Relative time] 1.48 {INR} Normal [facility] Comment on above: Performed By: #### P T ####[facility] Fqkrsclwjh89[address] [place], [place] [address]Dr. Farhat Leal INR GUIDELINES SEE BELOW Normal [facility] Comment on above: Result Comment: MALINA RED INR: 2.0 - 3.0 CONDITIONS NOT LISTED BELOW 2.5 - 3.5 FOR PROSTHETIC HEART VALVE REPLACEMENT 2.5 - 3.5 RECURRENT THROMBOSIS Performed By: #### P T ####[facility] Vmfcruvzls09[address] [place], [place] [address]Dr. Farhat Leal PT Coag (PPP) [Time] 15.6 s Critically high 9.0-11.6 [facility] Comment on above: Performed By: #### P T ####[facility] Pioiopwxvp1833[address] [place], [place] [address]Dr. Farhat Leal SED RATE WESTERGRENon 2021 SED RATE 76 mm/hr Critically high <=20 [facility] Comment on above: Performed By: #### S EDR ####[facility] Reaouleikk1385[address] [place], [place] [address]Dr. Farhat Leal BNPon 11-24-2021 Natriuretic peptide B (Bld) [Mass/Vol] 70791.0 pg/mL Critically high <=1,800.0 [facility] Comment on above: Performed By: #### B SALES FACILITATOR, CMP, CRP ####[facility] Qxxciumdtw669[address] [place], [place] [address]Dr. Farhat Leal CBC AUTO DIFFon 11-24-2021 BASO # 0.0 103/ul Normal 0.0-0.1 [facility] Comment on above: Performed By: #### C BC ####[facility] Ztygfdqpiu8[address] [place], [place] [address]Dr. Farhat Leal Basophils/100 WBC (Bld) 0.3 % Normal 0.2-2.0 [facility] Comment on above: Performed By: #### C BC ####[facility] Giafcwwijh[address] [place], [place] [address]Dr. Farhat Leal EO # 0.2 103/ul Normal 0.0-0.7 [facility] Comment on above: Performed By: #### C BC ####[facility] Mlkjmxfpel8873[address] [place], [place] [address]Dr. Farhat Leal Eosinophils/100 WBC (Bld) 1.2 % Normal 0.9-7.0 [facility] Comment on above: Performed By: #### C BC ####[facility] Hvpczarqqu3769[address] [place], [place] [address]Dr. Farhat Leal Erythrocyte distribution width (RBC) [Ratio] 13.5 % Normal 11.0-15.0 [facility] Comment on above: Performed By: #### C BC ####[facility] [address] [place] [address]Dr. Farhat Leal Hematocrit (Bld) [Volume fraction] 31.1 % Critically low 42.0-54.0 [facility] Comment on above: Performed By: #### C BC ####[facility] [address]fghovvl[address] [place] [address]Dr. Farhat Leal Hemoglobin (Bld) [Mass/Vol] 10.0 g/dL Critically low 14.0-18.0 [facility] Comment on above: Performed By: #### C BC ####[facility] Nlxduycyzt[address] [place] [address]Dr. Farhat Leal IG # 0.13 10e3/ul Critically high 0.00-0.03 [facility] Comment on above: Performed By: #### C BC ####[facility] Sskiscsjtw8188[address] [place], [place] [address]DrSkylar Leal IG % 1.0 % Critically high 0.0-0.5 [facility] Comment on above: Performed By: #### C BC ####[facility] Kszkywziqg79[address] [place], [place] [address]DrSkylar Farhat Elvis LYMPH # 0.7 103/ul Critically low 1.2-3.8 [facility] Comment on above: Performed By: #### C BC ####[facility] Atuyndcdev[address] [place] [address]DrSkylar Madelynlorri Leal Lymphocytes/100 WBC (Bld) 4.9 % Critically low 20.5-60.0 [facility] Comment on above: Performed By: #### C BC ####[facility] Ule[address]iztqh[address] [place] [address]DrSkylar Madelynlorri Leal MANUAL DIFF REQ NO Normal [facility] Comment on above: Performed By: #### C BC ####[facility] Xabxbdhiei[address] [place], [place] [address]DrSkylar Madelynlorri Leal MCH (RBC) [Entitic mass] 29.6 pg Normal 25.9-34.0 [facility] Comment on above: Performed By: #### C BC ####[facility] Sxu[address]ktckh[address] [place] [phone]. Farhat Leal MCHC (RBC) [Mass/Vol] 32.2 g/dL Normal 29.9-35.2 [facility] Comment on above: Performed By: #### C BC ####[facility] Wrrmtiqztc6[address] [place] [phone] Farhat Elvis MCV (RBC) [Entitic vol] 92.0 fL Normal 80.0-94.0 [facility] Comment on above: Performed By: #### C BC ####[facility] Hgxgucrdvk8317 [place] [phone] Leal MONO # 1.3 103/ul Critically high 0.3-0.8 [facility] Comment on above: Performed By: #### C BC ####[facility] Gmlpmvdlgo48[address] [place] [address]Dr. Farhat Leal Monocytes/100 WBC (Bld) 9.6 % Normal 1.7-12.0 [facility] Comment on above: Performed By: #### C BC ####[facility] Hyidrnwqgz[address] [place], [place] [id number] Leal NEUT # 11.2 103/ul Critically high 1.4-6.5 [facility] Comment on above: Performed By: #### C BC ####[facility] Kgpxonyhpf023[address] [place] [phone] Leal Neutrophils/100 WBC (Bld) 83.0 % Critically high 43.0-75.0 [facility] Comment on above: Performed By: #### C BC ####[facility] Rojuycqlau[address] [place], [place] [id number] Leal Platelet mean volume (Bld) [Entitic vol] 9.5 fL Normal 9.5-13.5 [facility] Comment on above: Performed By: #### C BC ####[facility] Xyanobutnb[address] [place] [phone] Leal PLT 395 103/ul Normal 150-450 [facility] Comment on above: Performed By: #### C BC ####[facility] Plvjnoyjjh1279 [place] [phone]. Farhat Leal RBC 3.38 106/ul Critically low 4.70-6.10 [facility] Comment on above: Performed By: #### C BC ####[facility] Ejnbtnxhev6680 [place] [phone]. Farhat Leal WBC 13.4 103/ul Critically high 4.0-11.0 [facility] Comment on above: Performed By: #### C BC ####[facility] Wgxlgmykzi0966 [place] [phone]. Farhat Leal CRPon 11-24-2021 CRP 27.8 mg/dL Critically high <=1.0 [facility] Comment on above: Performed By: #### B SALES FACILITATOR, CMP, CRP ####[facility] Kqsq[address]xfzl9064 [place] [phone]. Farhat Leal CULTURE ANAEROBICon 11-25-19 22 CULTURE ANAEROBIC Culture Observations : NO GROWTH OF ANAEROBES AT 72 HOURS. Normal [facility] Comment on above: Performed By: #### A NACX ####[facility] Otkcpzjclg7[address] [place] [phone]. Farhat Leal CULTURE ANAEROBIC Culture Observations : NO GROWTH OF ANAEROBES AT 72 HOURS. Normal [facility] Comment on above: Performed By: #### A NACX ####[facility] Lrkltcrnuj13[address] [place] [phone]. Farhat Leal CULTURE ANAEROBIC Culture Observations : No growth of anaerobes at 72 hours. Normal [facility] Comment on above: Performed By: #### A NACX ####[facility] Vurznondio3450 [place] [phone]. Farhat Leal CULTURE ANAEROBIC Culture Observations : No growth of anaerobes at 72 hours. Normal [facility] Comment on above: Performed By: #### A NACX ####[facility] Yyzwhpxqcj8182 [place] [phone]. Farhat Leal CULTURE URINEon 11-24-2021 CULTURE URINE Culture Observations : NO GROWTH. Normal [facility] Comment on above: Performed By: #### U RCX ####[facility] Bkpppefnoq0113[address] [place], [place] [address]Dr. Farhat Leal ECHOCARDIO M/2D COMPLETEon 1 ECHOCARDIO M/2D COMPLETE Normal [facility] ER URINE PROFILEon Bilirubin Ql (U) Negative Normal NEGATIVE [facility] Comment on above: Performed By: #### E RUR ####[facility] Urybldldwp8379[address] [place], [place] [address]Dr. Farhat Leal Clarity (U) CLEAR Normal CLEAR [facility] Comment on above: Performed By: #### E RUR ####[facility] Ymtozrbzcj1475[address] [place], [place] [address]Dr. Farhat Leal Color (U) YELLOW Normal YELLOW [facility] Comment on above: Performed By: #### E RUR ####[facility] Nonzeqlczh438[address] [place], [place] [address]Dr. Farhat Leal ERUAHD A micrscopic examination will be performed if indicated. Normal [facility] Comment on above: Performed By: #### E RUR ####[facility] Mhmwvugnpt6482[address] [place], [place] [address]Dr. Farhat Leal Glucose Ql (U) Negative Normal NEGATIVE [facility] Comment on above: Performed By: #### E RUR ####[facility] Fhpamjqrtv6007[address] [place], [place] [address]Dr. Farhat Leal Hemoglobin Ql (U) Negative Normal NEGATIVE [facility] Comment on above: Performed By: #### E RUR ####[facility] Sziqynhmyj9050[address] [place], [place] [address]Dr. Farhat Leal Ketones Ql (U) TRACE Abnormal NEGATIVE [facility] Comment on above: Performed By: #### E RUR ####[facility] Nfkhpwozha9860[address] [place], [place] [address]Dr. Farhat Leal LEUKOCYTES Negative Normal NEGATIVE [facility] Comment on above: Performed By: #### E RUR ####[facility] Zcnzbwxsgf0846[address] [place], [place] [address]Dr. Farhat Leal Nitrite Ql (U) Negative Normal NEGATIVE [facility] Comment on above: Performed By: #### E RUR ####[facility] Gyyojydjvi0565[address] [place], [place] [address]Dr. Farhat Leal pH (U) 5.5 [pH] Normal 5-9 [facility] Comment on above: Performed By: #### E RUR ####[facility] Zwkqiddrrv0582[address] [place], [place] [address]Dr. Farhat Leal SPEC GRAVITY 1.015 Normal 1.005-<=1.[address] [place] [address] Comment on above: Performed By: #### E RUR ####[facility] Msozsxwjzc1638[address] [place], [place] [address]Dr. Farhat Leal UA PROTEIN Negative Normal NEGATIVE/ TRACE [facility] Comment on above: Performed By: #### E RUR ####[facility] Tbqmuahdno6143[address] [place], [place] [address]Dr. Farhat Leal UR MICRO IND NOT INDICATED Normal [facility] Comment on above: Performed By: #### E RUR ####[facility] Lbdtpnmfcn6997[address] [place], [place] [address]Dr. Farhat Leal Urobilinogen Qn (U) 0.2 {Boyd'U}/dL Normal 0.2 - 1. 0 [facility] Comment on above: Performed By: #### E RUR ####[facility] Uwdimiwjxg0028[address] [place], [place] [address]Dr. Farhat Leal GRAM STAINon 11-24-2021 DIPHTHEROIDS Normal [facility] Comment on above: Performed By: #### G STAIN ####[facility] Fhmptvnwab3860[address] [place], [place] [address]Dr. Farhat Leal EPITHELIALS Normal [facility] Comment on above: Performed By: #### G STAIN ####[facility] Txfdwmqkll5434[address] [place], [place] [address]Dr. Farhat Leal FUNGAL ELEMENTS Normal [facility] Comment on above: Performed By: #### G STAIN ####[facility] Vzgxxdizso[address] [place], [place] [id number]. Farhat Leal GRAM NEG BACILLI Normal [facility] Comment on above: Performed By: #### G STAIN ####[facility] Fhirkyfkvv2634[address] [place], [place] [address]Dr. Farhat Leal GRAM NEG DIPPLOCOCCI Normal [facility] Comment on above: Performed By: #### G STAIN ####[facility] Nuicgddqqk027[address] [place], [place] [address]Dr. Farhat Leal GRAM POS BACILLI Normal [facility] Comment on above: Performed By: #### G STAIN ####[facility] Rxdsxptkhg6572[address] [place], [place] [address]Dr. Farhat Leal GRAM POSITIVE COCCI FEW Normal [facility] Comment on above: Performed By: #### G STAIN ####[facility] Dcvwimiyyl3120[address] [place], [place] [address]Dr. Farhat Leal GRAM STAIN SOURCE RT ACHILLES TENDON Normal [facility] Comment on above: Performed By: #### G STAIN ####[facility] Lluzkvxqdo7688[address] [place], [place] [address]Dr. Farhat Lela GS_DIPTH Normal [facility] Comment on above: Performed By: #### G STAIN ####[facility] Bvqqdkdnbi4647[address] [place], [place] [address]Dr. Farhat Leal WBC RARE Normal [facility] Comment on above: Performed By: #### G STAIN ####[facility] Utumxvytlh[address] [place], [place] [address]Dr. Farhat Leal COMMENTS NO ORGANISMS OBSERVED Normal [facility] Comment on above: Performed By: #### G STAIN ####[facility] Protzjkrfp4735[address] [place], [place] [address]Dr. Farhat Leal DIPHTHEROIDS Normal [facility] Comment on above: Performed By: #### G STAIN ####[facility] Yaxxapqipe6823[address] [place], [place] [address]Dr. Farhat Leal EPITHELIALS Normal [facility] Comment on above: Performed By: #### G STAIN ####[facility] Cfruzwicvx5049[address] [place], [place] [address]Dr. Farhat Leal FUNGAL ELEMENTS Normal [facility] Comment on above: Performed By: #### G STAIN ####[facility] [address]cuoyhy[address] [place] [address]Dr. Farhat Leal GRAM NEG BACILLI Normal [facility] Comment on above: Performed By: #### G STAIN ####[facility] Vzjncpydyh[address] [place] [address]Dr. Farhat Leal GRAM NEG DIPPLOCOCCI Normal [facility] Comment on above: Performed By: #### G STAIN ####[facility] Iekabqktvb[address] [place] [address]Dr. Farhat Leal GRAM POS BACILLI Normal [facility] Comment on above: Performed By: #### G STAIN ####[facility] Pnzcrvriia88[address] [place], [place] [address]Dr. Farhat Leal GRAM POSITIVE COCCI Normal [facility] Comment on above: Performed By: #### G STAIN ####[facility] Menwjynceu8376[address] [place], [place] [address]Dr. Farhat Leal GRAM STAIN SOURCE RT CALCANEOUS Normal [facility] Comment on above: Performed By: #### G STAIN ####[facility] Fusnunwzbb34[address] [place] [address]Dr. Farhat Leal GS_DIPTH Normal [facility] Comment on above: Performed By: #### G STAIN ####[facility] Qovdwcrspf1699 [place] [address]Dr. Farhat Leal WBC RARE Normal [facility] Comment on above: Performed By: #### G STAIN ####[facility] Jkxjluusos44[address] [place] [address]Dr. Farhat Leal DIPHTHEROIDS Normal [facility] Comment on above: Performed By: #### G STAIN ####[facility] Dbzyumnkgr9[address] [place], [place] [address]Dr. Farhat Leal EPITHELIALS Normal [facility] Comment on above: Performed By: #### G STAIN ####[facility] Fbjoujhshz4[address] [place] [address]Dr. Farhat Leal FUNGAL ELEMENTS Normal [facility] Comment on above: Performed By: #### G STAIN ####[facility] Cisdcxhkng4086 [place] [phone]. Farhat Leal GRAM NEG BACILLI FEW Normal [facility] Comment on above: Performed By: #### G STAIN ####[facility] Vyokkjafdk9543 [place] [phone]. Farhat Leal GRAM NEG DIPPLOCOCCI Normal [facility] Comment on above: Performed By: #### G STAIN ####[facility] Hvjqfxmfbp5025 [place] [address]Dr. Farhat Leal GRAM POS BACILLI Normal [facility] Comment on above: Performed By: #### G STAIN ####[facility] Kdjgcyjppv8443 [place] [address]Dr. Farhat Leal GRAM POSITIVE COCCI FEW Normal [facility] Comment on above: Performed By: #### G STAIN ####[facility] Ybdspsgxkt6488 [place] [address]Dr. Farhat Leal GRAM STAIN SOURCE #2 Rt foot abscess Normal [facility] Comment on above: Performed By: #### G STAIN ####[facility] Fhujcbacnm6414 [place] [address]Dr. Farhat Leal GS_DIPTH Normal [facility] Comment on above: Performed By: #### G STAIN ####[facility] Lklsaluxfy3713 [place] [address]Dr. Farhat Leal WBC RARE Normal [facility] Comment on above: Performed By: #### G STAIN ####[facility] Kmfyqsncjg3205 [place] [address]Dr. Farhat Leal DIPHTHEROIDS Normal [facility] Comment on above: Performed By: #### G STAIN ####[facility] Ugxylsnitq6173 [place] [address]Dr. Farhat Leal EPITHELIALS Normal [facility] Comment on above: Performed By: #### G STAIN ####[facility] Blkagfnlaf9815 [place] [address]Dr. Farhat Leal FUNGAL ELEMENTS Normal [facility] Comment on above: Performed By: #### G STAIN ####[facility] Fqcipovkkq0604 [place] [phone]. Farhat Leal GRAM NEG BACILLI FEW Normal [facility] Comment on above: Performed By: #### G STAIN ####[facility] Xsmrobmoox3[address] [place] [address]Dr. Farhat Leal GRAM NEG DIPPLOCOCCI Normal [facility] Comment on above: Performed By: #### G STAIN ####[facility] Cbisoqbinn89[address] [place] [address]Dr. Farhat Leal GRAM POS BACILLI Normal [facility] Comment on above: Performed By: #### G STAIN ####[facility] Vfiyanyzzs5490[address] [place], [place] [address]Dr. Farhat Leal GRAM POSITIVE COCCI FEW Normal [facility] Comment on above: Performed By: #### G STAIN ####[facility] Phsjqrrjby6176[address] [place], [place] [address]Dr. Farhat Leal GRAM STAIN SOURCE #1 Rt foot abscess Normal [facility] Comment on above: Performed By: #### G STAIN ####[facility] Wvdfmaerbi987[address] [place], [place] [address]Dr. Farhat Leal GS_DIPTH Normal [facility] Comment on above: Performed By: #### G STAIN ####[facility] Ndqtpoiikd44[address] [place], [place] [address]Dr. Farhat Leal WBC NONE SEEN Normal [facility] Comment on above: Performed By: #### G STAIN ####[facility] Ufefiajpzm8859[address] [place], [place] [address]Dr. Farhat Leal POINT OF CARE GLUCOSEon 10- 0 Glucose [Mass/Vol] 331 mg/dL Critically high 74-106 [facility] Comment on above: Performed By: #### P OCGLUC ####[facility] Gasbgfrykl8459[address] [place], [place] [address]Dr. Farhat Leal Glucose [Mass/Vol] 236 mg/dL Critically high 74-106 [facility] Comment on above: Performed By: #### P OCGLUC ####[facility] Kxluqfwcoa2614[address] [place], [place] [address]Dr. Farhat Leal PROF 14(COMP METB)on 022 Albumin [Mass/Vol] 1.6 g/dL Critically low 3.4-5.0 [facility] Comment on above: Performed By: #### B SALES FACILITATOR, CMP, CRP ####[facility] Zucgocdwql08[address] [place] [address]Dr. Farhat Leal Albumin/Globulin [Mass ratio] 0.4 {ratio} Normal [facility] Comment on above: Performed By: #### B SALES FACILITATOR, CMP, CRP ####[facility] Yrhmcjhott1294 [place] [address]Dr. Farhat Leal ALP [Catalytic activity/Vol] 94 U/L Normal 46-116 [facility] Comment on above: Performed By: #### B SALES FACILITATOR, CMP, CRP ####[facility] Xjvccqufla9376[address] [place], [place] [address]Dr. Farhat Leal ALT [Catalytic activity/Vol] 49 U/L Normal 16-63 [facility] Comment on above: Performed By: #### B SALES FACILITATOR, CMP, CRP ####[facility] Jcuxbetnhv8130 [place] [address]Dr. Farhat Leal Anion gap [Moles/Vol] 12.5 mmol/L Normal [facility] Comment on above: Performed By: #### B SALES FACILITATOR, CMP, CRP ####[facility] Qkotzgpnpz998[address] [place], [place] [address]Dr. Farhat Leal AST [Catalytic activity/Vol] 102 U/L Critically high 15-37 [facility] Comment on above: Performed By: #### B SALES FACILITATOR, CMP, CRP ####[facility] Hrkrkfjdib5038 [place] [address]Dr. Farhat Leal Bilirubin [Mass/Vol] 0.8 mg/dL Normal 0.2-1.0 [facility] Comment on above: Performed By: #### B SALES FACILITATOR, CMP, CRP ####[facility] Uftvajegit8833[address] [place], [place] [address]Dr. aFrhat Leal Calcium [Mass/Vol] 8.4 mg/dL Critically low 8.5-10.1 [facility] Comment on above: Performed By: #### B SALES FACILITATOR, CMP, CRP ####[facility] Iqmfafhsua5107 [place] [address]Dr. Farhat Leal Chloride [Moles/Vol] 96 mmol/L Critically low 98-107 [facility] Comment on above: Performed By: #### B SALES FACILITATOR, CMP, CRP ####[facility] Xrcydafxvi2435 [place] [address]Dr. Farhat Leal CO2 [Moles/Vol] 24.8 mmol/L Normal 21.0-32.0 [facility] Comment on above: Performed By: #### B SALES FACILITATOR, CMP, CRP ####[facility] Pfuqfxfbow3148 [place] [address]Dr. Madelynlorri Elvis Creatinine [Mass/Vol] 1.36 mg/dL Critically high 0.70-1.30 [facility] Comment on above: Performed By: #### B SALES FACILITATOR, CMP, CRP ####[facility] Kaarkfouqu8237[address] [place], [place] [address]Dr. Farhat Elvis EGFR-AF MOZAMBICAN >60 Normal >=60 [facility] Comment on above: Performed By: #### B SALES FACILITATOR, CMP, CRP ####[facility] Ujgmyrpyyy5[address] [place], [place] [address]Dr. Farhat Elvis EGFR-NON AF MOZAMBICAN 51 mL/min/1.73m2 Critically low >=60 [facility] Comment on above: Performed By: #### B SALES FACILITATOR, CMP, CRP ####[facility] Emwxpmhjxc8749[address] [place], [place] [address]Dr. Madelynlorri Elvis Globulin (S) [Mass/Vol] 4.1 g/dL Normal [facility] Comment on above: Performed By: #### B SALES FACILITATOR, CMP, CRP ####[facility] Uweozcnrkf6004 [place] [address]Dr. Farhat Leal Glucose [Mass/Vol] 204 mg/dL Critically high 74-106 [facility] Comment on above: Performed By: #### B SALES FACILITATOR, CMP, CRP ####[facility] Ufgsmpsjmr7065[address] [place], [place] [address]Dr. Farhat Leal Potassium [Moles/Vol] 4.3 mmol/L Normal 3.5-5.1 [facility] Comment on above: Performed By: #### B SALES FACILITATOR, CMP, CRP ####[facility] Ghfrvkizrd8486 [place] [address]Dr. Farhat Leal Protein [Mass/Vol] 5.7 g/dL Critically low 6.4-8.2 [facility] Comment on above: Performed By: #### B SALES FACILITATOR, CMP, CRP ####[facility] Orbauoqzgi5[address] [place], [place] [address]Dr. Farhat Leal Sodium [Moles/Vol] 129 mmol/L Critically low 136-145 [facility] Comment on above: Performed By: #### B SALES FACILITATOR, CMP, CRP ####[facility] Nvgabquvkm835[address] [place], [place] [address]Dr. Farhat Leal Urea nitrogen [Mass/Vol] 41.0 mg/dL Critically high 7.0-18.0 [facility] Comment on above: Performed By: #### B SALES FACILITATOR, CMP, CRP ####[facility] Umktjwcsrh[address] [place], [place] [address]Dr. Farhat Leal Urea nitrogen/Creatinine [Mass ratio] 30.1 mg/mg Normal [facility] Comment on above: Performed By: #### B SALES FACILITATOR, CMP, CRP ####[facility] Zadfezjgta[address] [place], [place] [address]Dr. Farhat Leal PROTIMEon 11-24-2021 INR Coag (PPP) [Relative time] 2.20 {INR} Normal [facility] Comment on above: Performed By: #### P T ####[facility] Ufyepisyvg23[address] [place], [place] [address]Dr. Farhat Leal INR GUIDELINES SEE BELOW Normal [facility] Comment on above: Result Comment: MALINA RED INR: 2.0 - 3.0 CONDITIONS NOT LISTED BELOW 2.5 - 3.5 FOR PROSTHETIC HEART VALVE REPLACEMENT 2.5 - 3.5 RECURRENT THROMBOSIS Performed By: #### P T ####[facility] Bvybsidveh[address] [place], [place] [address]Dr. Farhat Leal PT Coag (PPP) [Time] 22.6 s Critically high 9.0-11.6 [facility] Comment on above: Performed By: #### P T ####[facility] Vmqthehhpt35[address] [place], [place] [address]Dr. Farhat Leal [facility] mm/hr Critically high <=20 The [facility] Comment on above: Performed By: #### S EDR ####[facility] Myjhvqbphp[address] [place], [place] [address]Dr. Farhat Leal BLOOD CULTURE ID PANELon A. baumannii Not detected Normal NOT DETECTED The [facility] Comment on above: Performed By: #### B CID2 ####[facility] Lerjovmfdu[address] [place], [place] [address]Dr. Farhat Leal Bacteriodes fragilis Not detected Normal NOT DETECTED [facility] Comment on above: Performed By: #### B CID2 ####[facility] Klkjkpqyfl9[address] [place], [place] [address]Dr. Farhat Leal BCID CONTROLS PASSED Normal The [facility] Comment on above: Performed By: #### B CID2 ####[facility] Qooaiyteez[address] [place], [place] [address]Dr. Frahat Leal BCIDBTHD BLOOD CULTURE BOTTLE INFORMATION Normal [facility] Comment on above: Performed By: #### B CID2 ####[facility] Czjtzadntj[address] [place], [place] [address]Dr. Farhat Leal BCIDHD1 ANTIMICROBIAL RESISTANCE GENES Normal [facility] Comment on above: Performed By: #### B CID2 ####[facility] Jkffrbpwpi[address] [place], [place] [address]Dr. Farhat Leal BCIDHD2 SEE BELOW Normal [facility] Comment on above: Result Comment: Note : Antimicrobial resitance can occur via multiple mechanisms. A Not Detected result for the [employer] antomicrobial resistance gene assays does not indicate antimicrobial susceptibility. Subculturing is required for species identification and susceptibility testing of isolates. Performed By: #### B CID2 ####[facility] Gnjaledsui[address] [place], [place] [address]Dr. Farhat Leal BCIDHD3 Positive Normal [facility] Comment on above: Performed By: #### B CID2 ####[facility] [address]we[address] [place] [phone]. Farhat Leal BCIDHD4 Negative Normal [facility] Comment on above: Performed By: #### B CID2 ####[facility] Lt[address]ctecfl[address] [place] [phone]. Farhat Leal BCIDHD5 YEAST Normal [facility] Comment on above: Performed By: #### B CID2 ####[facility] [address] [place] [address]Dr. Farhat Leal Bottle Set: Set 1 Normal [facility] Comment on above: Performed By: #### B CID2 ####[facility] Ormru[address]da[address] [place] [address]Dr. Farhat Leal Bottle: Aerobic Normal [facility] Comment on above: Performed By: #### B CID2 ####[facility] Qtrmckbfgv[address] [place], [place] [address]Dr. Yilorri Leal C. neoformans/gattii Not detected Normal NOT DETECTED [facility] Comment on above: Performed By: #### B CID2 ####[facility] Vtppvuruyj09[address] [place], [place] [address]Dr. Yilorri [facility] Disha albicans Not detected Normal NOT DETECTED [facility] Comment on above: Performed By: #### B CID2 ####[facility] [address] [place] [address]Dr. Yilorri Leal Disha auris Not detected Normal NOT DETECTED The [facility] Comment on above: Performed By: #### B CID2 ####[facility] [address]sf[address] [place] [address]Dr. Yilorri Leal Disha glabrata Not detected Normal NOT DETECTED [facility] Comment on above: Performed By: #### B CID2 ####[facility] Xombdnikad[address] [place] [phone]. Yilorri Leal Disha Krusei Not detected Normal NOT DETECTED The [facility] Comment on above: Performed By: #### B CID2 ####[facility] Mhthufjguv050[address] [place] [phone]. Farhat Leal Disha Parapsilosis Not detected Normal NOT DETECTED [facility] Comment on above: Performed By: #### B CID2 ####[facility] Qbjyxmglnf6[address] [place], [place] [address]Dr. Farhat Leal Disha Tropicalis Not detected Normal NOT DETECTED [facility] Comment on above: Performed By: #### B CID2 ####[facility] Xvipazncsb86[address] [place], [place] [address]Dr. Madelynlorri Leal CTX-M Resistant Gene Not Applicable Normal NOT DETECTE D [facility] Comment on above: Performed By: #### B CID2 ####[facility] Gpoeksyddz6[address] [place], [place] [address]Dr. Farhat Leal E. Cloacae complex Not detected Normal NOT DETECTED [facility] Comment on above: Performed By: #### B CID2 ####[facility] Bcusbnurhy0654[address] [place], [place] [address]Dr. Farhat Leal E. faecalis Not detected Normal NOT DETECTED The [facility] Comment on above: Performed By: #### B CID2 ####[facility] Deopjhnwxw[address] [place], [place] [address]Dr. Farhat Leal E. faecium Not detected Normal NOT DETECTED The [facility] Comment on above: Performed By: #### B CID2 ####[facility] Lfweyoknpi0674[address] [place], [place] [address]Dr. Madelynlorri Leal Enterobacteriaceae Not detected Normal NOT DETECTED [facility] Comment on above: Performed By: #### B CID2 ####[facility] Rdsspzpqfx7[address] [place], [place] [address]Dr. Madelynlorri Leal Escherichia coli Not detected Normal NOT DETECTED [facility] Comment on above: Performed By: #### B CID2 ####[facility] Yjzfyxqdnd98[address] [place], [place] [address]Dr. Farhat Leal H. influenzae Not detected Normal NOT DETECTED [facility] Comment on above: Performed By: #### B CID2 ####[facility] Emenxenbaj9557[address] [place], [place] [address]Dr. Farhat Leal IMP Resistant Gene Not Applicable Normal NOT DETECTED [facility] Comment on above: Performed By: #### B CID2 ####[facility] Uczugzibeb1303[address] [place], [place] [address]Dr. Farhat Leal K. oxytoca Not detected Normal NOT DETECTED The [facility] Comment on above: Performed By: #### B CID2 ####[facility] Uzlzftiknv[address] [place] [address]Dr. Farhat Leal K. pneumoniae Not detected Normal NOT DETECTED [facility] Comment on above: Performed By: #### B CID2 ####[facility] Ngktlokuwa3382[address] [place], [place] [address]Dr. Farhat Leal Klebsiella aerogenes Not detected Normal NOT DETECTED [facility] Comment on above: Performed By: #### B CID2 ####[facility] Eriyfrduyc18[address] [place], [place] [address]Dr. Farhat Leal KPC Resistant Gene Not Applicable Normal NOT DETECTED [facility] Comment on above: Performed By: #### B CID2 ####[facility] Cqnxclmurk0512[address] [place], [place] [address]Dr. Farhat Lael List. monocytogenes Not detected Normal NOT DETECTED [facility] Comment on above: Performed By: #### B CID2 ####[facility] Zvruatzpwt6688[address] [place], [place] [address]Dr. Farhat Leal Mcr-1 Resistant Gene Not Applicable Normal NOT DETECTE D [facility] Comment on above: Performed By: #### B CID2 ####[facility] Qgxierfvzr4555[address] [place], [place] [address]Dr. Farhat Leal mecA/C Not Applicable Normal NOT DETECTED The [facility] Comment on above: Performed By: #### B CID2 ####[facility] Gyvwbpvpdw3518[address] [place], [place] [address]Dr. Madelynlan Elvis mecA/C MREJ Detected Abnormal NOT DETECTED The [facility] Comment on above: Performed By: #### B CID2 ####[facility] Sxphwpokqa2894[address] [place], [place] [address]Dr. Farhat Leal N. meningitidis Not detected Normal NOT DETECTED [facility] Comment on above: Performed By: #### B CID2 ####[facility] Tqrnueicxk8440[address] [place], [place] [address]Dr. Farhat Leal NDM Resistant Gene Not Applicable Normal NOT DETECTED [facility] Comment on above: Performed By: #### B CID2 ####[facility] Ufrdwzatft7554[address] [place], [place] [address]Dr. Farhat Leal Oxa-48-like Not Applicable Normal NOT DETECTED The [facility] Comment on above: Performed By: #### B CID2 ####[facility] Tbcljykgbb2618[address] [place], [place] [address]Dr. Farhat Leal Proteus Not detected Normal NOT DETECTED The [facility] Comment on above: Performed By: #### B CID2 ####[facility] Dsllmollel2290[address] [place], [place] [address]Dr. Farhat Leal Pseud. aeruginosa Not detected Normal NOT DETECTED [facility] Comment on above: Performed By: #### B CID2 ####[facility] Zslpnzxtgf7170[address] [place], [place] [address]Dr. Farhat Leal S. maltophilia Not detected Normal NOT DETECTED The [facility] Comment on above: Performed By: #### B CID2 ####[facility] Pshjlqobtj7969[address] [place], [place] [address]Dr. Farhat Leal Salmonella Not detected Normal NOT DETECTED The [facility] Comment on above: Performed By: #### B CID2 ####[facility] Aflsdpucei3195[address] [place], [place] [address]Dr. Farhat Leal Seratia marcescens Not detected Normal NOT DETECTED [facility] Comment on above: Performed By: #### B CID2 ####[facility] Qlyisbxrah0083[address] [place], [place] [address]Dr. Farhat Leal Site: Rt Hand Normal [facility] Comment on above: Performed By: #### B CID2 ####[facility] Thgqiqzzye5038[address] [place], [place] [address]Dr. Farhat Leal Staph. aureus Detected Abnormal NOT DETECTED The [facility] Comment on above: Performed By: #### B CID2 ####[facility] Ghpriagfly8739[address] [place], [place] [address]Dr. Farhat Leal Staph. epidermidis Not detected Normal NOT DETECTED [facility] Comment on above: Performed By: #### B CID2 ####[facility] Hjluaxwxmp9066[address] [place], [place] [address]Dr. Farhat Leal Staph. lugdunensis Not detected Normal NOT DETECTED [facility] Comment on above: Performed By: #### B CID2 ####[facility] Fnqoyeeqzm1587[address] [place], [place] [address]Dr. Farhat Leal Staphylococcus Detected Abnormal NOT DETECTED The [facility] Comment on above: Performed By: #### B CID2 ####[facility] Rkszoknuwn0340[address] [place], [place] [address]Dr. Farhat Leal Strep. agalactiae Not detected Normal NOT DETECTED [facility] Comment on above: Performed By: #### B CID2 ####[facility] Pstzjulpfa[address] [place], [place] [address]Dr. Madelynlorri Elvis Strep. pneumoniae Not detected Normal NOT DETECTED [facility] Comment on above: Performed By: #### B CID2 ####[facility] Eyqlceltzh25[address] [place], [place] [address]Dr. Farhat Elvis Strep. pyogenes Not detected Normal NOT DETECTED [facility] Comment on above: Performed By: #### B CID2 ####[facility] Onsjbsvhpq[address] [place], [place] [address]Dr. Farhat Leal Streptococcus Not detected Normal NOT DETECTED [facility] Comment on above: Performed By: #### B CID2 ####[facility] Ragkzvanig09[address] [place], [place] [address]Dr. Farhat Leal Teodoro/B Resist. Gene Not Applicable Normal NOT DETECTED [facility] Comment on above: Performed By: #### B CID2 ####[facility] Ouflhxkmiv66[address] [place], [place] [address]Dr. Farhat Leal VIM Resistant Gene Not Applicable Normal NOT DETECTED [facility] Comment on above: Performed By: #### B CID2 ####[facility] [address] [place] [address]Dr. Farhat Leal BNPon 11-23-2021 Natriuretic peptide B (Bld) [Mass/Vol] 36916.0 pg/mL Critically high <=1,800.0 [facility] Comment on above: Performed By: #### C MP, CMADM, BNP ####[facility] Vcpztegeni[address] [place] [address]Dr. Farhat Leal CARDIAC AMANDA ADMITon 022 CK [Catalytic activity/Vol] 41 U/L Normal 39-308 [facility] Comment on above: Performed By: #### C MP, CMADM, BNP ####[facility] [address]hgalltvfl[address] [place] [address]Dr. Farhat Leal CK.MB [Mass/Vol] 0.98 ng/mL Normal <=3.60 [facility] Comment on above: Performed By: #### C MP, CMADM, BNP ####[facility] Qyxhuxhgji60[address] [place] [address]Dr. Farhat Leal HSTROP 30.1 pg/mL Normal 4.0-76.1 [facility] Comment on above: Result Comment: CUT- OFF POINTS HAVE BEEN ESTABLISHED BASED ON THE FOURTH UNIVERSAL DEFINITIONS OF MYOCARDIALINFARCTION. THE UPPER REFERENCE LIMIT (URL) OF TROPONIN, DEFINED THE 99TH PERCENTILE OFcTnI DISTRIBUTION IN A REFERENCE POPULATION, HAS BEEN CONFIRMED THE DECISION THRESHOLDFOR MT DIAGNOSIS. Performed By: #### C MP, CMADM, BNP ####[facility] [address]ztlrujmun[address] [place] [address]Dr. Farhat Leal VALERIA 160 ng/mL Critically high 16-96 [facility] Comment on above: Performed By: #### C MP, CMADM, BNP ####[facility] Zefhrlfbye[address] [place] [address]Dr. Farhat Leal CBC AUTO DIFFon 11-23-2021 BASO # 0.0 103/ul Normal 0.0-0.1 [facility] Comment on above: Performed By: #### C BC ####[facility] [address]efaf[address] [place] [address]Dr. Farhat Leal Basophils/100 WBC (Bld) 0.2 % Normal 0.2-2.0 [facility] Comment on above: Performed By: #### C BC ####[facility] Lqk[address]hzkhk6[address] [place] [address]Dr. Farhat Leal EO # 0.0 103/ul Normal 0.0-0.7 [facility] Comment on above: Performed By: #### C BC ####[facility] Urbkztocbf[address] [place] [address]Dr. Farhat Leal Eosinophils/100 WBC (Bld) 0.1 % Critically low 0.9-7.0 [facility] Comment on above: Performed By: #### C BC ####[facility] [address]erckrthuu[address] [place], [place] [address]Dr. Farhat Leal Erythrocyte distribution width (RBC) [Ratio] 13.4 % Normal 11.0-15.0 [facility] Comment on above: Performed By: #### C BC ####[facility] Yuaslcqdok[address] [place], [place] [address]Dr. Farhat Leal Hematocrit (Bld) [Volume fraction] 31.6 % Critically low 42.0-54.0 [facility] Comment on above: Performed By: #### C BC ####[facility] Qswrwihbot[address] [place], [place] [address]Dr. Farhat Leal Hemoglobin (Bld) [Mass/Vol] 10.4 g/dL Critically low 14.0-18.0 [facility] Comment on above: Performed By: #### C BC ####[facility] Esyqcukpvu6[address] [place], [place] [address]Dr. Farhat Leal IG # 0.11 10e3/ul Critically high 0.00-0.03 [facility] Comment on above: Performed By: #### C BC ####[facility] Hywkeckmom[address] [place] [address]Dr. Farhat Leal IG % 0.7 % Critically high 0.0-0.5 [facility] Comment on above: Performed By: #### C BC ####[facility] Xgesruszsp39[address] [place] [phone]. Farhat Elvis LYMPH # 0.5 103/ul Critically low 1.2-3.8 The [facility] Comment on above: Performed By: #### C BC ####[facility] Bqktvmphpm4741 [place] [phone]. Farhat Leal Lymphocytes/100 WBC (Bld) 2.8 % Critically low 20.5-60.0 [facility] Comment on above: Performed By: #### C BC ####[facility] Lrbymuengm22[address] [place] [phone]. Madelynlorri Leal MANUAL DIFF REQ NO Normal The [facility] Comment on above: Performed By: #### C BC ####[facility] Eawrgerork[address] [place] [phone]. Farhat Elvis MCH (RBC) [Entitic mass] 29.8 pg Normal 25.9-34.0 [facility] Comment on above: Performed By: #### C BC ####[facility] Evjnbjmmiz55[address] [place] [phone]. Farhat Elvis MCHC (RBC) [Mass/Vol] 32.9 g/dL Normal 29.9-35.2 [facility] Comment on above: Performed By: #### C BC ####[facility] Doolrycmgo02[address] [place] [phone]. Farhat Elvis MCV (RBC) [Entitic vol] 90.5 fL Normal 80.0-94.0 [facility] Comment on above: Performed By: #### C BC ####[facility] Iqbrtcioqa5998 [place] [phone]. Farhat Elvis MONO # 1.3 103/ul Critically high 0.3-0.8 [facility] Comment on above: Performed By: #### C BC ####[facility] Zbzocmjoni2486 [place] [phone]. Madelynlorri Leal Monocytes/100 WBC (Bld) 8.3 % Normal 1.7-12.0 [facility] Comment on above: Performed By: #### C BC ####[facility] Lbeeqjdauv4360 [place] [phone]. Farhat Leal NEUT # 13.9 103/ul Critically high 1.4-6.5 [facility] Comment on above: Performed By: #### C BC ####[facility] Bwewylslrp1842 [place] [phone]. Farhat Leal Neutrophils/100 WBC (Bld) 87.9 % Critically high 43.0-75.0 [facility] Comment on above: Performed By: #### C BC ####[facility] Bupjwfsbqs4[address] [place] [phone]. Farhat Leal Platelet mean volume (Bld) [Entitic vol] 9.3 fL Critically low 9.5-13.5 [facility] Comment on above: Performed By: #### C BC ####[facility] Mmcypkvvoi4871 [place] [phone]. Farhat Leal PLT 390 103/ul Normal 150-450 [facility] Comment on above: Performed By: #### C BC ####[facility] Nrqpegpxsx5228 [place] [phone]. Farhat Leal RBC 3.49 106/ul Critically low 4.70-6.10 [facility] Comment on above: Performed By: #### C BC ####[facility] Jolbhhtmpu45[address] [place] [phone]. Farhat Leal WBC 15.9 103/ul Critically high 4.0-11.0 [facility] Comment on above: Performed By: #### C BC ####[facility] Jocmwrpjuy[address] [place] [phone]. Farhat Leal CT HEAD WO CONon 11-23-2021 CT HEAD WO CON Normal The [facility] CULTURE BLOODon 11-23-2021 Microscopic examination of blood, culture Culture Observations: NO GROWTH AT 5 DAYS. Normal [facility] Comment on above: Performed By: #### B LDCX2 ####[facility] H[address]onzecjam[address] [place] [phone]. Farhat Leal Covid-19 PCR (CVDTB)on SARS-CoV-2 (COVID-19) RNA JOSH+probe Ql (Unsp spec) Not detected Normal NOT DETECTED [facility] Comment on above: Result Comment: When [...] for this test is supported by the Public Health Nurse of Health and Human Service's declaration that [...] be used). Performed By: #### C VDTBH ####[facility] [address]omhvgmrbv[address] [place], [place] [address]Dr. Farhat Leal LACTATE/LACTIC ACIDon 2021 Lactate [Moles/Vol] 1.3 mmol/L Normal 0.4-1.9 [facility] Comment on above: Performed By: #### L ACT ####[facility] Zzumwhgjox[address] [place], [place] [address]DrSkylar Leal Lactate [Moles/Vol] 1.3 mmol/L Normal 0.4-1.9 [facility] Comment on above: Performed By: #### L ACT ####[facility] Zyucqdadxq[address] [place], [place] [address]Dr. Farhat Leal POINT OF CARE GLUCOSEon Glucose [Mass/Vol] 252 mg/dL Critically high 74-106 [facility] Comment on above: Performed By: #### P OCGLUC ####[facility] Ovefngkbxk27[address] [place], [place] [address]Dr. Farhat Leal PROF 14(COMP METB)on 10-09-2 022 Albumin [Mass/Vol] 1.6 g/dL Critically low 3.4-5.0 Th e [facility] Comment on above: Performed By: #### C MP, CMADM, BNP ####[facility] Ksnufngmwp[address] [place] [address]Dr. Madelynlorri Elvis Albumin/Globulin [Mass ratio] 0.4 {ratio} Normal [facility] Comment on above: Performed By: #### C MP, CMADM, BNP ####[facility] Pkjjjfrpai3[address] [place] [address]Dr. Farhat Elvis ALP [Catalytic activity/Vol] 98 U/L Normal 46-116 [facility] Comment on above: Performed By: #### C MP CMADM, BNP ####[facility] Ysnyrpfrru4[address] [place] [address]Dr. Farhat Leal ALT [Catalytic activity/Vol] 52 U/L Normal 16-63 [facility] Comment on above: Performed By: #### C MP, CMADM, BNP ####[facility] Abeulnzepo0850 [place] [address]Dr. Farhat Leal Anion gap [Moles/Vol] 9.8 mmol/L Normal [facility] Comment on above: Performed By: #### C MP CMADM, BNP ####[facility] Penwyqnkcx5542[address] [place], [place] [address]Dr. Farhat Leal AST [Catalytic activity/Vol] 122 U/L Critically high 15-37 [facility] Comment on above: Performed By: #### C MP, CMADM, BNP ####[facility] Unpnlpddki72[address] [place] [address]Dr. Farhat Leal Bilirubin [Mass/Vol] 0.7 mg/dL Normal 0.2-1.0 [facility] Comment on above: Performed By: #### C MP, CMADM, BNP ####[facility] Ktjujunmmb69[address] [place] [address]Dr. Farhat Leal Calcium [Mass/Vol] 8.6 mg/dL Normal 8.5-10.1 [facility] Comment on above: Performed By: #### C MP, CMADM, BNP ####[facility] Fboxbtfxjp2034 [place] [address]Dr. Farhat Leal Chloride [Moles/Vol] 95 mmol/L Critically low 98-107 [facility] Comment on above: Performed By: #### C MP, CMADM, BNP ####[facility] Wehlathaqy5[address] [place] [address]Dr. Farhat Leal CO2 [Moles/Vol] 29.6 mmol/L Normal 21.0-32.0 [facility] Comment on above: Performed By: #### C MP, CMADM, BNP ####[facility] Hgwrrclxeq1683 [place] [address]Dr. Farhat Leal Creatinine [Mass/Vol] 1.49 mg/dL Critically high 0.70-1.30 [facility] Comment on above: Performed By: #### C MP, CMADM, BNP ####[facility] Tmwpvogvqh[address] [place], [place] [address]Dr. Farhat Elvis EGFR-AF MOZAMBICAN 55 mL/min/1.73m2 Critically low >=60 [facility] Comment on above: Performed By: #### C MP, CMADM, BNP ####[facility] Eyxshqudkw[address] [place], [place] [address]Dr. Farhat Leal EGFR-NON AF MOZAMBICAN 46 mL/min/1.73m2 Critically low >=60 [facility] Comment on above: Performed By: #### C MP, CMADM, BNP ####[facility] Gwpgcblyrt39[address] [place], [place] [address]Dr. Farhat Leal Globulin (S) [Mass/Vol] 4.3 g/dL Normal [facility] Comment on above: Performed By: #### C MP, CMADM, BNP ####[facility] Poswtkhhfg7042[address] [place], [place] [address]Dr. Farhat Leal Glucose [Mass/Vol] 213 mg/dL Critically high 74-106 T [facility] Comment on above: Performed By: #### C MP, CMADM, BNP ####[facility] Fgtwuqqvag60[address] [place], [place] [address]Dr. Yilorri Leal Potassium [Moles/Vol] 4.4 mmol/L Normal 3.5-5.1 [facility] Comment on above: Performed By: #### C ANTWAN MARROQUIN, BNP ####[facility] Ynohxlztlh56[address] [place] [address]Dr. Farhat Leal Protein [Mass/Vol] 5.9 g/dL Critically low 6.4-8.2 [facility] Comment on above: Performed By: #### C ANTAWN MARROQUIN, BNP ####[facility] Edjnrvndma[address] [place], [place] [address]Dr. Farhat Leal Sodium [Moles/Vol] 130 mmol/L Critically low 136-145 Th [facility] Comment on above: Performed By: #### C ANTWAN MARROQUIN, BNP ####[facility] Wkqsexdmte9742[address] [place], [place] [address]Dr. Farhat Leal Urea nitrogen [Mass/Vol] 46.0 mg/dL Critically high 7.0-18.0 [facility] Comment on above: Performed By: #### C ANTWAN MARROQUIN, BNP ####[facility] Ohvfkifcee6[address] [place], [place] [address]Dr. Farhat Leal Urea nitrogen/Creatinine [Mass ratio] 30.9 mg/mg Normal [facility] Comment on above: Performed By: #### C ANTWAN MARROQUIN, BNP ####[facility] Iorjjwsnty[address] [place], [place] [address]Dr. Farhat Leal PROTIMEon 11-23-2021 INR Coag (PPP) [Relative time] 2.55 {INR} Normal [facility] Comment on above: Performed By: #### P TT, PT ####[facility] Bdvbxjpere[address] [place], [place] [address]Dr. Farhat Leal INR GUIDELINES SEE BELOW Normal [facility] Comment on above: Result Comment: MALINA RED INR: 2.0 - 3.0 CONDITIONS NOT LISTED BELOW 2.5 - 3.5 FOR PROSTHETIC HEART VALVE REPLACEMENT 2.5 - 3.5 RECURRENT THROMBOSIS Performed By: #### P TT, PT ####[facility] [id number] [place], [place] [address]Dr. Farhat Leal PT Coag (PPP) [Time] 25.9 s Critically high 9.0-11.6 [facility] Comment on above: Performed By: #### P TT, PT ####[facility] Rotfcwrodm[address] [place], [place] [address]Dr. Farhat Leal PTTon 11-23-2021 aPTT Coag (Bld) [Time] 39.9 s Critically high 22.3-36. 2 [facility] Comment on above: Performed By: #### P TT, PT ####[facility] Rbepbnbcfb[address] [place], [place] [address]Dr. Farhat Leal XR CHEST 1 Von 11-23-2021 XR CHEST 1 V Normal [facility] XR HEEL RT 2Von 11-23-2021 XR HEEL RT 2V Normal [facility] XR FOOT RT MIN 3 VIEWSon XR FOOT RT MIN 3 VIEWS Normal [facility] US ARTERY LEG RTon US ARTERY LEG RT Normal [facility] CBC AUTO DIFFon 09-24-2021 BASO # 0.1 103/ul Normal 0.0-0.1 [facility] Comment on above: Performed By: #### C BC ####[facility] Txwgwbbbkx32[address] [place], [place] [address]Dr. Farhat Elvis Basophils/100 WBC (Bld) 0.7 % Normal 0.2-2.0 [facility] Comment on above: Performed By: #### C BC ####[facility] Dghnezllvu01[address] [place], [place] [address]Dr. Farhat Elvis EO # 0.3 103/ul Normal 0.0-0.7 [facility] Comment on above: Performed By: #### C BC ####[facility] Nbnrfaffhe8943[address] [place], [place] [address]Dr. Farhat Elvis Eosinophils/100 WBC (Bld) 3.9 % Normal 0.9-7.0 [facility] Comment on above: Performed By: #### C BC ####[facility] Gpbakeiglp52[address] [place], [place] [address]Dr. Yilorri Leal Erythrocyte distribution width (RBC) [Ratio] 12.6 % Normal 11.0-15.0 [facility] Comment on above: Performed By: #### C BC ####[facility] [address] [place] [address]Dr. Farhat Leal Hematocrit (Bld) [Volume fraction] 38.9 % Critically low 42.0-54.0 [facility] Comment on above: Performed By: #### C BC ####[facility] Cwthqfvwji[address] [place], [place] [address]Dr. Farhat Leal Hemoglobin (Bld) [Mass/Vol] 12.8 g/dL Critically low 14.0-18.0 [facility] Comment on above: Performed By: #### C BC ####[facility] Jvmstngmai[address] [place], [place] [address]Dr. Farhat Leal IG # 0.10 10e3/ul Critically high 0.00-0.03 [facility] Comment on above: Performed By: #### C BC ####[facility] Alezqjeyhw[address] [place], [place] [address]Dr. Farhat Leal IG % 1.2 % Critically high 0.0-0.5 [facility] Comment on above: Performed By: #### C BC ####[facility] Cnzsytqbfc[address] [place], [place] [address]Dr. Madelynlorri Elvis LYMPH # 2.1 103/ul Normal 1.2-3.8 [facility] Comment on above: Performed By: #### C BC ####[facility] Jukuzzpufp[address] [place], [place] [address]Dr. Madelynlorri Leal Lymphocytes/100 WBC (Bld) 25.9 % Normal 20.5-60.0 [facility] Comment on above: Performed By: #### C BC ####[facility] Gxsbvhkxat5[address] [place], [place] [address]Dr. Farhat Elvis MANUAL DIFF REQ NO Normal [facility] Comment on above: Performed By: #### C BC ####[facility] Bjbbogntfp9188[address] [place], [place] [address]Dr. Farhat Leal MCH (RBC) [Entitic mass] 31.1 pg Normal 25.9-34.0 [facility] Comment on above: Performed By: #### C BC ####[facility] [address] [place] [address]Dr. Farhat Leal MCHC (RBC) [Mass/Vol] 32.9 g/dL Normal 29.9-35.2 [facility] Comment on above: Performed By: #### C BC ####[facility] Ggcmbnbzat[address] [place] [address]Dr. Farhat Leal MCV (RBC) [Entitic vol] 94.6 fL Critically high 80.0-94.0 [facility] Comment on above: Performed By: #### C BC ####[facility] Mbfvindnwv69[address] [place], [place] [address]Dr. Farhat Elvis MONO # 1.2 103/ul Critically high 0.3-0.8 [facility] Comment on above: Performed By: #### C BC ####[facility] Kksvinmpaz1890[address] [place], [place] [address]Dr. Madelynlorri Leal Monocytes/100 WBC (Bld) 14.1 % Critically high 1.7-12.0 [facility] Comment on above: Performed By: #### C BC ####[facility] Wsrkcutcly248[address] [place], [place] [address]Dr. Farhat Leal NEUT # 4.4 103/ul Normal 1.4-6.5 [facility] Comment on above: Performed By: #### C BC ####[facility] Gkrhklblil3864[address] [place], [place] [address]Dr. Madelynlorri Leal Neutrophils/100 WBC (Bld) 54.2 % Normal 43.0-75.0 [facility] Comment on above: Performed By: #### C BC ####[facility] Lililsnaoy99[address] [place], [place] [address]Dr. Farhat Leal Platelet mean volume (Bld) [Entitic vol] 9.9 fL Normal 9.5-13.5 [facility] Comment on above: Performed By: #### C BC ####[facility] [address]upm[address] [place] [address]Dr. Farhat Elvis PLT 224 103/ul Normal 150-450 [facility] Comment on above: Performed By: #### C BC ####[facility] Furihmvsth3175[address] [place], [place] [address]Dr. Farhat Elvis RBC 4.11 106/ul Critically low 4.70-6.10 [facility] Comment on above: Performed By: #### C BC ####[facility] Lhgpeghrae[address] [place], [place] [address]Dr. Farhat Elvis WBC 8.2 103/ul Normal 4.0-11.0 [facility] Comment on above: Performed By: #### C BC ####[facility] Xmitwvtcui2913[address] [place], [place] [address]Dr. Madelynlorri Leal PROF CHEM 8 (BAS METB)on Anion gap [Moles/Vol] 9.6 mmol/L Normal [facility] Comment on above: Performed By: #### B MP ####[facility] Zwvjhoyrrb5630[address] [place], [place] [address]Dr. Farhat Leal Calcium [Mass/Vol] 8.6 mg/dL Normal 8.5-10.1 [facility] Comment on above: Performed By: #### B MP ####[facility] Xqgwjesmgz4640[address] [place], [place] [address]Dr. Farhat Leal Chloride [Moles/Vol] 94 mmol/L Critically low 98-107 [facility] Comment on above: Performed By: #### B MP ####[facility] Iezmdwmtze669[address] [place], [place] [address]Dr. Farhat Leal CO2 [Moles/Vol] 28.1 mmol/L Normal 21.0-32.0 [facility] Comment on above: Performed By: #### B MP ####[facility] Fypslaoxam6355[address] [place], [place] [address]Dr. Farhat Leal Creatinine [Mass/Vol] 1.91 mg/dL Critically high 0.70-1.30 [facility] Comment on above: Performed By: #### B MP ####[facility] [address]rqqdmy[address] [place] [address]Dr. Madelynlorri Elvis EGFR-AF MOZAMBICAN 42 mL/min/1.73m2 Critically low >=60 [facility] Comment on above: Performed By: #### B MP ####[facility] Fratpkzidp1446[address] [place], [place] [address]Dr. Madelynlorri Leal EGFR-NON AF MOZAMBICAN 34 mL/min/1.73m2 Critically low >=60 [facility] Comment on above: Performed By: #### B MP ####[facility] Tggwsalgfk7366[address] [place], [place] [address]Dr. Farhat Leal Glucose [Mass/Vol] 314 mg/dL Critically high 74-106 T [facility] Comment on above: Performed By: #### B MP ####[facility] Heiqglyqcx0611[address] [place], [place] [address]Dr. Farhat Leal Potassium [Moles/Vol] 4.7 mmol/L Normal 3.5-5.1 [facility] Comment on above: Performed By: #### B MP ####[facility] Hvprxnzdmd9688[address] [place], [place] [address]Dr. Farhat Leal Sodium [Moles/Vol] 127 mmol/L Critically low 136-145 [facility] Comment on above: Performed By: #### B MP ####[facility] Baalymhpwc945[address] [place], [place] [address]Dr. Farhat Leal Urea nitrogen [Mass/Vol] 79.0 mg/dL Critically high 7.0-18.0 [facility] Comment on above: Result Comment: repe ated Performed By: #### B MP ####[facility] Udtuuxmdhz6536[address] [place], [place] [address]Dr. Farhat Leal Urea nitrogen/Creatinine [Mass ratio] 41.4 mg/mg Normal [facility] Comment on above: Performed By: #### B MP ####[facility] Ovxmgiylnv4916[address] [place], [place] [address]Dr. Farhat Leal PTT HEPARIN MONITORon 2021 aPTT Coag (Bld) [Time] 42.7 s Normal 39.5-54.2 [facility] Comment on above: Performed By: #### P TTHEP ####[facility] [address] [place] [address]Dr. Farhat Leal aPTT Coag (Bld) [Time] 56.7 s Critically high 39.5-54. 2 [facility] Comment on above: Performed By: #### P TTHEP ####[facility] Hnkygjuosf[address] [place], [place] [address]Dr. Farhat Leal CBC AUTO DIFFon 09-23-2021 BASO # 0.1 103/ul Normal 0.0-0.1 [facility] Comment on above: Performed By: #### C BC ####[facility] Jyfnmrqvof4240[address] [place], [place] [address]Dr. Farhat Leal Basophils/100 WBC (Bld) 0.6 % Normal 0.2-2.0 [facility] Comment on above: Performed By: #### C BC ####[facility] Ntbcvubikh[address] [place], [place] [address]Dr. Farhat Leal EO # 0.2 103/ul Normal 0.0-0.7 [facility] Comment on above: Performed By: #### C BC ####[facility] Ntymesfnsk6463[address] [place], [place] [address]Dr. Farhat Leal Eosinophils/100 WBC (Bld) 2.6 % Normal 0.9-7.0 [facility] Comment on above: Performed By: #### C BC ####[facility] Aedezfkmvx21[address] [place], [place] [address]Dr. Farhat Leal Erythrocyte distribution width (RBC) [Ratio] 12.4 % Normal 11.0-15.0 [facility] Comment on above: Performed By: #### C BC ####[facility] Hunosuaytl399[address] [place], [place] [address]Dr. Farhat Leal Hematocrit (Bld) [Volume fraction] 38.4 % Critically low 42.0-54.0 [facility] Comment on above: Performed By: #### C BC ####[facility] Vfqaxgcram9267[address] [place], [place] [address]Dr. Farhat Leal Hemoglobin (Bld) [Mass/Vol] 12.8 g/dL Critically low 14.0-18.0 [facility] Comment on above: Performed By: #### C BC ####[facility] [address]ks[address] [place] [address]DrSkylar Leal IG # 0.06 10e3/ul Critically high 0.00-0.03 [facility] Comment on above: Performed By: #### C BC ####[facility] [address]wk[address] [place] [address]Dr. Farhat Leal IG % 0.8 % Critically high 0.0-0.5 [facility] Comment on above: Performed By: #### C BC ####[facility] Igcxtonthe9624[address] [place], [place] [address]DrSkylar Leal LYMPH # 1.5 103/ul Normal 1.2-3.8 [facility] Comment on above: Performed By: #### C BC ####[facility] Dyqerjgzsq3065[address] [place], [place] [address]Dr. Farhat Leal Lymphocytes/100 WBC (Bld) 19.7 % Critically low 20.5-60.0 [facility] Comment on above: Performed By: #### C BC ####[facility] Cnfluhqrtj2123[address] [place], [place] [address]DrSkylar Leal MANUAL DIFF REQ NO Normal [facility] Comment on above: Performed By: #### C BC ####[facility] Hliwzcyutu18[address] [place], [place] [address]DrSkylar Leal MCH (RBC) [Entitic mass] 31.6 pg Normal 25.9-34.0 [facility] Comment on above: Performed By: #### C BC ####[facility] Flqyhrvtmw192[address] [place], [place] [address]DrSkylar Leal MCHC (RBC) [Mass/Vol] 33.3 g/dL Normal 29.9-35.2 [facility] Comment on above: Performed By: #### C BC ####[facility] Znryxrhtfi3615[address] [place], [place] [address]DrSkylar Leal MCV (RBC) [Entitic vol] 94.8 fL Critically high 80.0-94.0 [facility] Comment on above: Performed By: #### C BC ####[facility] Otudalqzgw1340[address] [place], [place] [address]DrSkylar Farhat Leal MONO # 1.0 103/ul Critically high 0.3-0.8 [facility] Comment on above: Performed By: #### C BC ####[facility] Ufkyjnpgvd866[address] [place], [place] [address]Dr. Farhat Elvis Monocytes/100 WBC (Bld) 13.0 % Critically high 1.7-12.0 [facility] Comment on above: Performed By: #### C BC ####[facility] Hfoccqvrwb2489[address] [place], [place] [address]Dr. Farhat Leal NEUT # 4.9 103/ul Normal 1.4-6.5 [facility] Comment on above: Performed By: #### C BC ####[facility] Tvwanmpkrx2435[address] [place], [place] [address]Dr. Farhat Elvis Neutrophils/100 WBC (Bld) 63.3 % Normal 43.0-75.0 [facility] Comment on above: Performed By: #### C BC ####[facility] Etnywvxnxz2104[address] [place], [place] [address]Dr. Farhat Elvis Platelet mean volume (Bld) [Entitic vol] 10.7 fL Normal 9.5-13.5 [facility] Comment on above: Performed By: #### C BC ####[facility] Nrtdotrpdt2157[address] [place], [place] [address]Dr. Farhat Elvis PLT 205 103/ul Normal 150-450 [facility] Comment on above: Performed By: #### C BC ####[facility] Wexrooiivb440[address] [place], [place] [address]Dr. Madelynlorri Elvis RBC 4.05 106/ul Critically low 4.70-6.10 [facility] Comment on above: Performed By: #### C BC ####[facility] Vutgibsstk7434[address] [place], [place] [address]Dr. Farhat Leal WBC 7.7 103/ul Normal 4.0-11.0 [facility] Comment on above: Performed By: #### C BC ####[facility] Tpojqumhls2837[address] [place], [place] [address]Dr. Farhat Leal PROF CHEM 8 (BAS METB)on Anion gap [Moles/Vol] 15.5 mmol/L Normal [facility] Comment on above: Performed By: #### B MP ####[facility] Dtyeirwqvu9347[address] [place], [place] [address]Dr. Farhat Leal Calcium [Mass/Vol] 9.1 mg/dL Normal 8.5-10.1 [facility] Comment on above: Performed By: #### B MP ####[facility] Gpcclyrbgi3263[address] [place], [place] [address]Dr. Farhat Leal Chloride [Moles/Vol] 92 mmol/L Critically low 98-107 [facility] Comment on above: Performed By: #### B MP ####[facility] Qizghwxzom317[address] [place], [place] [address]Dr. Farhat Leal CO2 [Moles/Vol] 28.5 mmol/L Normal 21.0-32.0 [facility] Comment on above: Performed By: #### B MP ####[facility] Ijrposjxjb4085[address] [place], [place] [address]Dr. Farhat Leal Creatinine [Mass/Vol] 1.84 mg/dL Critically high 0.70-1.30 [facility] Comment on above: Performed By: #### B MP ####[facility] Eyyhhpombk7989[address] [place], [place] [address]Dr. Farhat Leal EGFR-AF MOZAMBICAN 44 mL/min/1.73m2 Critically low >=60 [facility] Comment on above: Performed By: #### B MP ####[facility] Ofcebgkoio6677[address] [place], [place] [address]Dr. Farhat Leal EGFR-NON AF MOZAMBICAN 36 mL/min/1.73m2 Critically low >=60 [facility] Comment on above: Performed By: #### B MP ####[facility] Cjwlbeedqn33[address] [place], [place] [id number]. Madelynlorri Leal Glucose [Mass/Vol] 267 mg/dL Critically high 74-106 T [facility] Comment on above: Performed By: #### B MP ####[facility] Rxundmwswg8893[address] [place], [place] [address]Dr. Madelynlorri Elal Potassium [Moles/Vol] 5.0 mmol/L Normal 3.5-5.1 [facility] Comment on above: Performed By: #### B MP ####[facility] Rkgnjvslnb1715[address] [place], [place] [address]Dr. Frahat Leal Sodium [Moles/Vol] 131 mmol/L Critically low 136-145 Th [facility] Comment on above: Performed By: #### B MP ####[facility] Zblwoyvhjv7750[address] [place], [place] [address]Dr. Farhat Leal Urea nitrogen [Mass/Vol] 76.0 mg/dL Critically high 7.0-18.0 [facility] Comment on above: Performed By: #### B MP ####[facility] Dilenjodub9415[address] [place], [place] [address]Dr. Farhat Leal Urea nitrogen/Creatinine [Mass ratio] 41.3 mg/mg Normal [facility] Comment on above: Performed By: #### B MP ####[facility] Aorjmzvuaq427[address] [place], [place] [address]Dr. Farhat Leal PTT HEPARIN MONITORon 2021 aPTT Coag (Bld) [Time] 57.2 s Critically high 39.5-54. 2 [facility] Comment on above: Performed By: #### P TTHEP ####[facility] Owvqqzgtsx0112[address] [place], [place] [address]Dr. Farhat Leal aPTT Coag (Bld) [Time] 74.7 s Critically high 39.5-54. 2 [facility] Comment on above: Result Comment: repe ated Performed By: #### P TTHEP ####[facility] Ighpcwezqq020[address] [place], [place] [address]Dr. Farhat Leal aPTT Coag (Bld) [Time] 45.5 s Normal 39.5-54.2 [facility] Comment on above: Performed By: #### P TTHEP ####[facility] Qpdofagxnb[address] [place], [place] [address]DrSkylar Leal CBC AUTO DIFFon 09-22-2021 BASO # 0.1 103/ul Normal 0.0-0.1 [facility] Comment on above: Performed By: #### C BC ####[facility] Oklhqtmsni3234[address] [place], [place] [address]DrSkylar Leal Basophils/100 WBC (Bld) 0.7 % Normal 0.2-2.0 [facility] Comment on above: Performed By: #### C BC ####[facility] Fhuwmtxbyg9036[address] [place], [place] [address]DrSkylar Leal EO # 0.3 103/ul Normal 0.0-0.7 [facility] Comment on above: Performed By: #### C BC ####[facility] Dakqdlgzdu032[address] [place], [place] [address]DrSkylar Leal Eosinophils/100 WBC (Bld) 3.2 % Normal 0.9-7.0 [facility] Comment on above: Performed By: #### C BC ####[facility] Cdzpsltrbo8108[address] [place], [place] [address]DrSkylar Leal Erythrocyte distribution width (RBC) [Ratio] 12.5 % Normal 11.0-15.0 [facility] Comment on above: Performed By: #### C BC ####[facility] Yllrbieaky6626[address] [place], [place] [address]DrSkylar Leal Hematocrit (Bld) [Volume fraction] 40.5 % Critically low 42.0-54.0 [facility] Comment on above: Performed By: #### C BC ####[facility] Bjhxxdcjol2620[address] [place], [place] [address]DrSkylar Leal Hemoglobin (Bld) [Mass/Vol] 13.4 g/dL Critically low 14.0-18.0 [facility] Comment on above: Performed By: #### C BC ####[facility] Zlxgtwpmsf2287[address] [place], [place] [address]DrSkylar Joshilrori Elvis IG # 0.11 10e3/ul Critically high 0.00-0.03 [facility] Comment on above: Performed By: #### C BC ####[facility] [address] [place] [address]DrSkylar Farhat Elvis IG % 1.3 % Critically high 0.0-0.5 [facility] Comment on above: Performed By: #### C BC ####[facility] Outxzbzuph[address] [place] [address]DrSkylar Leal LYMPH # 1.7 103/ul Normal 1.2-3.8 [facility] Comment on above: Performed By: #### C BC ####[facility] Ilskmezzze475[address] [place], [place] [address]DrSkylar Leal Lymphocytes/100 WBC (Bld) 19.6 % Critically low 20.5-60.0 [facility] Comment on above: Performed By: #### C BC ####[facility] Esbisqvsfz4739[address] [place], [place] [address]DrSkylar Leal MANUAL DIFF REQ NO Normal [facility] Comment on above: Performed By: #### C BC ####[facility] Wyrrxzbwkt4018[address] [place], [place] [address]DrSkylar Joshilorri Elvis MCH (RBC) [Entitic mass] 31.1 pg Normal 25.9-34.0 [facility] Comment on above: Performed By: #### C BC ####[facility] Wyfqcaihmx1406[address] [place], [place] [address]DrSkylar Joshilorri Elvis MCHC (RBC) [Mass/Vol] 33.1 g/dL Normal 29.9-35.2 [facility] Comment on above: Performed By: #### C BC ####[facility] Jqagunvjii4935[address] [place], [place] [address]DrSkylar Leal MCV (RBC) [Entitic vol] 94.0 fL Normal 80.0-94.0 [facility] Comment on above: Performed By: #### C BC ####[facility] Dfrfsvwnjm9454[address] [place], [place] [address]DrSkylar Leal MONO # 1.1 103/ul Critically high 0.3-0.8 [facility] Comment on above: Performed By: #### C BC ####[facility] [address]kfbug[address] [place] [address]Dr. Farhat Leal Monocytes/100 WBC (Bld) 12.7 % Critically high 1.7-12.0 [facility] Comment on above: Performed By: #### C BC ####[facility] [address]hmfx[address] [place] [address]Dr. Farhat Leal NEUT # 5.3 103/ul Normal 1.4-6.5 [facility] Comment on above: Performed By: #### C BC ####[facility] Dyaymdjsfh04[address] [place] [address]Dr. Farhat Leal Neutrophils/100 WBC (Bld) 62.5 % Normal 43.0-75.0 [facility] Comment on above: Performed By: #### C BC ####[facility] Acsvubygru139[address] [place], [place] [address]Dr. Farhat Leal Platelet mean volume (Bld) [Entitic vol] 10.1 fL Normal 9.5-13.5 [facility] Comment on above: Performed By: #### C BC ####[facility] Xmr[address]axpof[address] [place] [address]Dr. Farhat Leal PLT 220 103/ul Normal 150-450 [facility] Comment on above: Performed By: #### C BC ####[facility] [address] [place] [id number]. Farhat Leal RBC 4.31 106/ul Critically low 4.70-6.10 [facility] Comment on above: Performed By: #### C BC ####[facility] Amlaqusxgm[address] [place] [address]Dr. Farhat Leal WBC 8.4 103/ul Normal 4.0-11.0 [facility] Comment on above: Performed By: #### C BC ####[facility] Lhnlamntoi25[address] [place], [place] [address]DrSkylar Madelynlorri Leal PROF CHEM 8 (BAS METB)on 08- 08-2022 Anion gap [Moles/Vol] 15.5 mmol/L Normal Th [facility] Comment on above: Performed By: #### B MP ####[facility] [address]kgropxar[address] [place] [address]Dr. Madelynlorri Leal Calcium [Mass/Vol] 8.9 mg/dL Normal 8.5-10.1 [facility] Comment on above: Performed By: #### B MP ####[facility] [address]gznxhxw[address] [place] [address]Dr. Farhat Leal Chloride [Moles/Vol] 92 mmol/L Critically low 98-107 [facility] Comment on above: Performed By: #### B MP ####[facility] Scizvluxbi3483[address] [place], [place] [address]Dr. Farhat Leal CO2 [Moles/Vol] 25.7 mmol/L Normal 21.0-32.0 [facility] Comment on above: Performed By: #### B MP ####[facility] Xthkgguwtd5062[address] [place], [place] [address]Dr. Farhat Leal Creatinine [Mass/Vol] 1.85 mg/dL Critically high 0.70-1.30 [facility] Comment on above: Performed By: #### B MP ####[facility] Orldfbwlca[address] [place], [place] [address]Dr. Farhat Leal EGFR-AF MOZAMBICAN 43 mL/min/1.73m2 Critically low >=60 [facility] Comment on above: Performed By: #### B MP ####[facility] Gnezbvawlk[address]99[address] [place], [place] [address]Dr. Farhat Leal EGFR-NON AF MOZAMBICAN 36 mL/min/1.73m2 Critically low >=60 [facility] Comment on above: Performed By: #### B MP ####[facility] Vziukqzosq7[address] [place], [place] [address]Dr. Farhat Leal Glucose [Mass/Vol] 410 mg/dL Critically high 74-106 [facility] Comment on above: Performed By: #### B MP ####[facility] Hbwxyowjje9599[address] [place], [place] [address]Dr. Farhat Leal Potassium [Moles/Vol] 5.2 mmol/L Critically high 3.5-5.1 [facility] Comment on above: Performed By: #### B MP ####[facility] [address]es[address]ico[address] [place] [address]Dr. Farhat Leal Sodium [Moles/Vol] 128 mmol/L Critically low 136-145 Th [facility] Comment on above: Performed By: #### B MP ####[facility] Bswqnopnjd[address] [place], [place] [address]Dr. Farhat Leal Urea nitrogen [Mass/Vol] 75.0 mg/dL Critically high 7.0-18.0 [facility] Comment on above: Performed By: #### B MP ####[facility] K[address]ajkrgwsk[address] [place], [place] [address]Dr. Farhat Leal Urea nitrogen/Creatinine [Mass ratio] 40.5 mg/mg Normal [facility] Comment on above: Performed By: #### B MP ####[facility] [address]jempyjpgg97[address] [place], [place] [address]Dr. Farhat Leal PTT HEPARIN MONITORon 2021 aPTT Coag (Bld) [Time] 51.2 s Normal 39.5-54.2 [facility] Comment on above: Performed By: #### P TTHEP ####[facility] Uqrjzehdtg[address] [place], [place] [address]Dr. Farhat Leal aPTT Coag (Bld) [Time] 55.6 s Critically high 39.5-54. 2 [facility] Comment on above: Performed By: #### P TTHEP ####[facility] Duzvttmngh[address] [place], [place] [address]Dr. Farhat Leal aPTT Coag (Bld) [Time] 46.1 s Normal 39.5-54.2 [facility] Comment on above: Performed By: #### P TTHEP ####[facility] Rzatumcffv6[address] [place], [place] [address]Dr. Farhat Leal aPTT Coag (Bld) [Time] 53.8 s Normal 39.5-54.2 Th e [facility] Comment on above: Performed By: #### P TTHEP ####[facility] [address] [place] [address]Dr. Farhat Elvis CBC AUTO DIFFon 09-21-2021 BASO # 0.1 103/ul Normal 0.0-0.1 [facility] Comment on above: Performed By: #### C BC ####[facility] Ymlwhqsfrm36[address] [place], [place] [address]Dr. Farhat Leal Basophils/100 WBC (Bld) 0.8 % Normal 0.2-2.0 [facility] Comment on above: Performed By: #### C BC ####[facility] Bgocjlbjeb8318[address] [place], [place] [address]Dr. Farhat Leal EO # 0.4 103/ul Normal 0.0-0.7 [facility] Comment on above: Performed By: #### C BC ####[facility] Calhstecna[address] [place], [place] [address]Dr. Farhat Leal Eosinophils/100 WBC (Bld) 4.3 % Normal 0.9-7.0 [facility] Comment on above: Performed By: #### C BC ####[facility] Brtlwhlgqm8465[address] [place], [place] [address]Dr. Farhat Elvis Erythrocyte distribution width (RBC) [Ratio] 12.5 % Normal 11.0-15.0 [facility] Comment on above: Performed By: #### C BC ####[facility] Dkhavdycno5640[address] [place], [place] [address]Dr. Farhat Leal Hematocrit (Bld) [Volume fraction] 40.8 % Critically low 42.0-54.0 [facility] Comment on above: Performed By: #### C BC ####[facility] Ncozqsxhiz40[address] [place], [place] [address]Dr. Farhat Leal Hemoglobin (Bld) [Mass/Vol] 13.5 g/dL Critically low 14.0-18.0 [facility] Comment on above: Performed By: #### C BC ####[facility] Bdqwysogil[address] [place], [place] [id number]. Farhat Leal IG # 0.10 10e3/ul Critically high 0.00-0.03 [facility] Comment on above: Performed By: #### C BC ####[facility] Jerbhslbmc[address] [place] [address]DrSkylar Farhat Elvis IG % 1.2 % Critically high 0.0-0.5 [facility] Comment on above: Performed By: #### C BC ####[facility] Fykfalismp[address] [place], [place] [address]DrSkylar Farhat Elvis LYMPH # 1.3 103/ul Normal 1.2-3.8 [facility] Comment on above: Performed By: #### C BC ####[facility] Rvkoopdauy2115[address] [place], [place] [address]DrSkylar Farhat Elvis Lymphocytes/100 WBC (Bld) 15.4 % Critically low 20.5-60.0 [facility] Comment on above: Performed By: #### C BC ####[facility] Hkifvfsqpj[address] [place], [place] [address]DrSkylar Farhat Elvis MANUAL DIFF REQ NO Normal [facility] Comment on above: Performed By: #### C BC ####[facility] Sghelcprqn5875[address] [place], [place] [address]DrSkylar Farhat Leal MCH (RBC) [Entitic mass] 31.0 pg Normal 25.9-34.0 [facility] Comment on above: Performed By: #### C BC ####[facility] Fbwanzddlx7494[address] [place], [place] [address]DrSkylar Farhat Leal MCHC (RBC) [Mass/Vol] 33.1 g/dL Normal 29.9-35.2 [facility] Comment on above: Performed By: #### C BC ####[facility] Oksdsfjzik[address] [place], [place] [address]DrSkylar Farhat Elvis MCV (RBC) [Entitic vol] 93.8 fL Normal 80.0-94.0 [facility] Comment on above: Performed By: #### C BC ####[facility] Qvriewjcxa23[address] [place], [place] [address]Dr. Farhat Leal MONO # 1.2 103/ul Critically high 0.3-0.8 [facility] Comment on above: Performed By: #### C BC ####[facility] Ovmbdjtbhc[address] [place] [address]Dr. Farhat Leal Monocytes/100 WBC (Bld) 13.6 % Critically high 1.7-12.0 [facility] Comment on above: Performed By: #### C BC ####[facility] Trlwerysol[address] [place] [address]Dr. Farhat Leal NEUT # 5.5 103/ul Normal 1.4-6.5 [facility] Comment on above: Performed By: #### C BC ####[facility] Nnkmwodjds4[address] [place] [address]Dr. Farhat Leal Neutrophils/100 WBC (Bld) 64.7 % Normal 43.0-75.0 [facility] Comment on above: Performed By: #### C BC ####[facility] Qbapkpumpu5543[address] [place], [place] [address]Dr. Farhat Leal Platelet mean volume (Bld) [Entitic vol] 9.8 fL Normal 9.5-13.5 [facility] Comment on above: Performed By: #### C BC ####[facility] Aztxzibdlv[address] [place] [address]Dr. Farhat Leal PLT 206 103/ul Normal 150-450 [facility] Comment on above: Performed By: #### C BC ####[facility] Fobtklvhro[address] [place] [address]Dr. Farhat Leal RBC 4.35 106/ul Critically low 4.70-6.10 [facility] Comment on above: Performed By: #### C BC ####[facility] Bbxbrkfswk45[address] [place] [address]Dr. Farhat Elvis WBC 8.4 103/ul Normal 4.0-11.0 [facility] Comment on above: Performed By: #### C BC ####[facility] Tjovstmfcq[address] [place] [address]Dr. Farhat Leal PROF CHEM 8 (BAS METB)on Anion gap [Moles/Vol] 12.3 mmol/L Normal [facility] Comment on above: Performed By: #### B MP ####[facility] Ytrhtjhiup2086[address] [place], [place] [address]Dr. Farhat Leal Calcium [Mass/Vol] 8.6 mg/dL Normal 8.5-10.1 [facility] Comment on above: Performed By: #### B MP ####[facility] Avhedvbhop8826[address] [place], [place] [address]Dr. Farhat Leal Chloride [Moles/Vol] 94 mmol/L Critically low 98-107 [facility] Comment on above: Performed By: #### B MP ####[facility] Pwkvruexqn640[address] [place], [place] [address]Dr. Farhat Leal CO2 [Moles/Vol] 30.8 mmol/L Normal 21.0-32.0 [facility] Comment on above: Performed By: #### B MP ####[facility] Manyqqxqrz6443[address] [place], [place] [address]Dr. Farhat Leal Creatinine [Mass/Vol] 1.99 mg/dL Critically high 0.70-1.30 [facility] Comment on above: Performed By: #### B MP ####[facility] Otaguccdfa072[address] [place], [place] [address]Dr. Farhat Leal EGFR-AF MOZAMBICAN 40 mL/min/1.73m2 Critically low >=60 [facility] Comment on above: Performed By: #### B MP ####[facility] Jfezejuwuo3123[address] [place], [place] [address]Dr. Farhat Leal EGFR-NON AF MOZAMBICAN 33 mL/min/1.73m2 Critically low >=60 [facility] Comment on above: Performed By: #### B MP ####[facility] Pkrzdbrdgx4659[address] [place], [place] [address]Dr. Farhat Leal Glucose [Mass/Vol] 264 mg/dL Critically high 74-106 [facility] Comment on above: Performed By: #### B MP ####[facility] Fzaijmwjgs2085[address] [place], [place] [address]Dr. Farhat Leal Potassium [Moles/Vol] 5.1 mmol/L Normal 3.5-5.1 [facility] Comment on above: Performed By: #### B MP ####[facility] Udkddegekt0187[address] [place], [place] [address]Dr. Farhat Leal Sodium [Moles/Vol] 132 mmol/L Critically low 136-145 [facility] Comment on above: Performed By: #### B MP ####[facility] Lribhgzyes1754[address] [place], [place] [address]Dr. Farhat Leal Urea nitrogen [Mass/Vol] 72.0 mg/dL Critically high 7.0-18.0 [facility] Comment on above: Performed By: #### B MP ####[facility] Qqtfswshja1975[address] [place], [place] [address]Dr. Farhat Leal Urea nitrogen/Creatinine [Mass ratio] 36.2 mg/mg Normal [facility] Comment on above: Performed By: #### B MP ####[facility] Gybjgbgzmz2540[address] [place], [place] [address]Dr. Farhat Leal PTT HEPARIN MONITORon 2021 aPTT Coag (Bld) [Time] 45.3 s Normal 39.5-54.2 [facility] Comment on above: Performed By: #### P TTHEP ####[facility] Lgvorlnowe1929[address] [place], [place] [address]Dr. Farhat Leal aPTT Coag (Bld) [Time] 68.0 s Critically high 39.5-54. 2 [facility] Comment on above: Performed By: #### P TTHEP ####[facility] Txyabaztai012[address] [place], [place] [address]Dr. Farhat Leal aPTT Coag (Bld) [Time] 69.4 s Critically high 39.5-54. 2 [facility] Comment on above: Performed By: #### P TTHEP ####[facility] Uxbusienmw5760[address] [place], [place] [address]Dr. Farhat Leal aPTT Coag (Bld) [Time] 53.5 s Normal 39.5-54.2 Th e [facility] Comment on above: Performed By: #### P TTHEP ####[facility] [address]mkqpnnh[address] [place] [address]Dr. Farhat Leal aPTT Coag (Bld) [Time] 126.9 s Critically high 39.5-54. 2 [facility] Comment on above: Performed By: #### P TTHEP ####[facility] Qralvrahdg7397[address] [place], [place] [address]Dr. Farhat Leal CBC AUTO DIFFon 09-20-2021 BASO # 0.1 103/ul Normal 0.0-0.1 [facility] Comment on above: Performed By: #### C BC ####[facility] Jyonuhwdeh4288[address] [place], [place] [address]Dr. Farhat Leal Basophils/100 WBC (Bld) 0.7 % Normal 0.2-2.0 [facility] Comment on above: Performed By: #### C BC ####[facility] Yytirqfjtw3615[address] [place], [place] [address]Dr. Farhat Leal EO # 0.2 103/ul Normal 0.0-0.7 [facility] Comment on above: Performed By: #### C BC ####[facility] Oklhgybzjk517[address] [place], [place] [address]Dr. Farhat Leal Eosinophils/100 WBC (Bld) 3.2 % Normal 0.9-7.0 [facility] Comment on above: Performed By: #### C BC ####[facility] Ubopadinss0985[address] [place], [place] [address]Dr. Farhat Leal Erythrocyte distribution width (RBC) [Ratio] 12.4 % Normal 11.0-15.0 [facility] Comment on above: Performed By: #### C BC ####[facility] Blmhhwgypm624[address] [place], [place] [address]Dr. Farhat Leal Hematocrit (Bld) [Volume fraction] 40.1 % Critically low 42.0-54.0 [facility] Comment on above: Performed By: #### C BC ####[facility] Pbwdgxgzmj07[address] [place] [phone]. Farhat Leal Hemoglobin (Bld) [Mass/Vol] 13.4 g/dL Critically low 14.0-18.0 [facility] Comment on above: Performed By: #### C BC ####[facility] Gxuxtxboen99[address] [place] [phone]. Farhat Leal IG # 0.08 10e3/ul Critically high 0.00-0.03 [facility] Comment on above: Performed By: #### C BC ####[facility] Lxdrqwsxhs5737 [place] [phone]. Farhat Leal IG % 1.1 % Critically high 0.0-0.5 [facility] Comment on above: Performed By: #### C BC ####[facility] Namuhtyewy[address] [place] [address]Dr. Farhat Leal LYMPH # 1.3 103/ul Normal 1.2-3.8 [facility] Comment on above: Performed By: #### C BC ####[facility] Kyqbabkfed7[address] [place] [address]Dr. Farhat Leal Lymphocytes/100 WBC (Bld) 17.3 % Critically low 20.5-60.0 [facility] Comment on above: Performed By: #### C BC ####[facility] Glsucsmyfw99[address] [place] [phone]. Farhat Leal MANUAL DIFF REQ NO Normal [facility] Comment on above: Performed By: #### C BC ####[facility] Nhloygcwpk07[address] [place] [phone]. Farhat Leal MCH (RBC) [Entitic mass] 31.2 pg Normal 25.9-34.0 [facility] Comment on above: Performed By: #### C BC ####[facility] Vsxtovhqrm5326 [place] [phone]. Farhat Leal MCHC (RBC) [Mass/Vol] 33.4 g/dL Normal 29.9-35.2 [facility] Comment on above: Performed By: #### C BC ####[facility] Smfxogunfe8514 [place] [phone]. Farhat Leal MCV (RBC) [Entitic vol] 93.3 fL Normal 80.0-94.0 [facility] Comment on above: Performed By: #### C BC ####[facility] Noysotlyln6276 [place] [phone]. Farhat Leal MONO # 0.9 103/ul Critically high 0.3-0.8 [facility] Comment on above: Performed By: #### C BC ####[facility] Mzyjrsaftj54[address] [place] [address]Dr. Farhat Leal Monocytes/100 WBC (Bld) 12.4 % Critically high 1.7-12.0 [facility] Comment on above: Performed By: #### C BC ####[facility] Wpvxjfouyg47[address] [place], [place] [address]Dr. Farhat Leal NEUT # 4.7 103/ul Normal 1.4-6.5 [facility] Comment on above: Performed By: #### C BC ####[facility] Vykxjubnex7315[address] [place], [place] [address]Dr. Farhat Leal Neutrophils/100 WBC (Bld) 65.3 % Normal 43.0-75.0 [facility] Comment on above: Performed By: #### C BC ####[facility] Rgzjzjjhia1805[address] [place], [place] [address]Dr. Farhat Leal Platelet mean volume (Bld) [Entitic vol] 9.9 fL Normal 9.5-13.5 [facility] Comment on above: Performed By: #### C BC ####[facility] Lispfgepbg5360 [place] [phone]. Farhat Leal PLT 180 103/ul Normal 150-450 [facility] Comment on above: Performed By: #### C BC ####[facility] Ywvsklveul[address] [place], [place] [id number]. Farhat Leal RBC 4.30 106/ul Critically low 4.70-6.10 [facility] Comment on above: Performed By: #### C BC ####[facility] Yvwsbazfbx3690[address] [place], [place] [address]Dr. Madelynlorri Leal WBC 7.2 103/ul Normal 4.0-11.0 [facility] Comment on above: Performed By: #### C BC ####[facility] Irdkgseaqk9929[address] [place], [place] [address]Dr. Farhat Leal PTT HEPARIN MONITORon 2021 aPTT Coag (Bld) [Time] 26.7 s Critically low 39.5-54.2 [facility] Comment on above: Performed By: #### P TTHEP ####[facility] Xtjuajqtfr9523[address] [place], [place] [address]Dr. Farhat Leal aPTT Coag (Bld) [Time] 121.0 s Critically high 39.5-54. 2 [facility] Comment on above: Performed By: #### P TTHEP ####[facility] Wubcndzvqv6426[address] [place], [place] [address]Dr. Farhat Leal aPTT Coag (Bld) [Time] 27.6 s Critically low 39.5-54.2 [facility] Comment on above: Performed By: #### P TTHEP ####[facility] Gpgbnewzyp027[address] [place], [place] [address]Dr. Farhat Leal aPTT Coag (Bld) [Time] 139.0 s Critically high 39.5-54. 2 [facility] Comment on above: Performed By: #### P TTHEP ####[facility] Vnsexqxiyn3556[address] [place], [place] [address]Dr. Farhat Leal CBC AUTO DIFFon 09-19-2021 BASO # 0.0 103/ul Normal 0.0-0.1 [facility] Comment on above: Performed By: #### C BC ####[facility] Jrojzzbuwn3032[address] [place], [place] [address]Dr. Farhat Leal Basophils/100 WBC (Bld) 0.5 % Normal 0.2-2.0 [facility] Comment on above: Performed By: #### C BC ####[facility] Yawzwtwykf5674[address] [place], [place] [address]Dr. Farhat Leal EO # 0.2 103/ul Normal 0.0-0.7 [facility] Comment on above: Performed By: #### C BC ####[facility] Lmaiwhxdhe94[address] [place] [address]Dr. Farhat Elvis Eosinophils/100 WBC (Bld) 2.6 % Normal 0.9-7.0 [facility] Comment on above: Performed By: #### C BC ####[facility] Tnzolpayww0245 [place] [address]Dr. Farhat Elvis Erythrocyte distribution width (RBC) [Ratio] 12.5 % Normal 11.0-15.0 [facility] Comment on above: Performed By: #### C BC ####[facility] Iwcorntgur2638[address] [place], [place] [address]Dr. Farhat Leal Hematocrit (Bld) [Volume fraction] 39.2 % Critically low 42.0-54.0 [facility] Comment on above: Performed By: #### C BC ####[facility] Qgngfpnetb305[address] [place], [place] [address]Dr. Farhat Leal Hemoglobin (Bld) [Mass/Vol] 13.3 g/dL Critically low 14.0-18.0 [facility] Comment on above: Performed By: #### C BC ####[facility] Czozwvmrxa67[address] [place], [place] [address]Dr. Farhat Leal IG # 0.08 10e3/ul Critically high 0.00-0.03 [facility] Comment on above: Performed By: #### C BC ####[facility] Mfzbaapujx9237[address] [place], [place] [address]Dr. Farhat Leal IG % 0.9 % Critically high 0.0-0.5 [facility] Comment on above: Performed By: #### C BC ####[facility] Bwiitysfin7729[address] [place], [place] [address]Dr. Farhat Leal LYMPH # 1.5 103/ul Normal 1.2-3.8 [facility] Comment on above: Performed By: #### C BC ####[facility] Jnzrvakouo672[address] [place], [place] [address]Dr. Farhat Leal Lymphocytes/100 WBC (Bld) 17.2 % Critically low 20.5-60.0 [facility] Comment on above: Performed By: #### C BC ####[facility] Nenwgsskvu[address] [place] [address]DrSkylar Leal MANUAL DIFF REQ NO Normal [facility] Comment on above: Performed By: #### C BC ####[facility] Zicrqamgqb85[address] [place] [address]DrSkylar Leal MCH (RBC) [Entitic mass] 31.7 pg Normal 25.9-34.0 [facility] Comment on above: Performed By: #### C BC ####[facility] Cyemogqodz1243[address] [place], [place] [address]DrSkylar Leal MCHC (RBC) [Mass/Vol] 33.9 g/dL Normal 29.9-35.2 [facility] Comment on above: Performed By: #### C BC ####[facility] Lznsndkvuy9832[address] [place], [place] [address]DrSkylar Leal MCV (RBC) [Entitic vol] 93.3 fL Normal 80.0-94.0 [facility] Comment on above: Performed By: #### C BC ####[facility] Tauuvujyxr3698[address] [place], [place] [address]DrSkylar Leal MONO # 1.2 103/ul Critically high 0.3-0.8 [facility] Comment on above: Performed By: #### C BC ####[facility] Seypryqdwb286[address] [place], [place] [address]DrSkylar Leal Monocytes/100 WBC (Bld) 13.7 % Critically high 1.7-12.0 [facility] Comment on above: Performed By: #### C BC ####[facility] Ccnboyyitn4073[address] [place], [place] [address]DrSkylar Leal NEUT # 5.5 103/ul Normal 1.4-6.5 [facility] Comment on above: Performed By: #### C BC ####[facility] Ixakzfpgpq2213[address] [place], [place] [address]DrSkylar Leal Neutrophils/100 WBC (Bld) 65.1 % Normal 43.0-75.0 [facility] Comment on above: Performed By: #### C BC ####[facility] Dtqfhqdaof6[address] [place] [address]Dr. Farhat Leal Platelet mean volume (Bld) [Entitic vol] 9.6 fL Normal 9.5-13.5 [facility] Comment on above: Performed By: #### C BC ####[facility] Swllochanb68[address] [place] [address]Dr. Farhat Leal PLT 163 103/ul Normal 150-450 [facility] Comment on above: Performed By: #### C BC ####[facility] Usxzeghmwu4633[address] [place], [place] [address]Dr. Farhat Leal RBC 4.20 106/ul Critically low 4.70-6.10 [facility] Comment on above: Performed By: #### C BC ####[facility] Exebkdsfrh362[address] [place], [place] [address]Dr. Farhat Leal WBC 8.4 103/ul Normal 4.0-11.0 [facility] Comment on above: Performed By: #### C BC ####[facility] Ccavetbtuc312[address] [place], [place] [address]Dr. Farhat Leal POINT OF CARE GLUCOSEon Glucose [Mass/Vol] 300 mg/dL Critically high 74-106 T [facility] Comment on above: Performed By: #### P OCGLUC ####[facility] Cdkvfvhzcx84[address] [place], [place] [address]Dr. Farhat Elvis POTASSIUMon 09-19-2021 Potassium [Moles/Vol] 4.9 mmol/L Normal 3.5-5.1 [facility] Comment on above: Performed By: #### K ####[facility] Bhhwgqhuef2887[address] [place], [place] [address]DrSkylar Farhat Leal PTT HEPARIN MONITORon 2021 aPTT Coag (Bld) [Time] 23.4 s Critically low 39.5-54.2 [facility] Comment on above: Result Comment: repe ated Performed By: #### P TTHEP ####[facility] Hkzpvjvdnf5635[address] [place], [place] [address]Dr. Farhat Leal aPTT Coag (Bld) [Time] 101.2 s Critically high 39.5-54. 2 [facility] Comment on above: Performed By: #### P TTHEP ####[facility] Byempxogtd466[address] [place], [place] [address]Dr. Farhat Leal aPTT Coag (Bld) [Time] 81.0 s Critically high 39.5-54. 2 [facility] Comment on above: Result Comment: Test Repeated. Critical Value Verified Performed By: #### P TTHEP ####[facility] Ybbhxwbbre695[address] [place], [place] [address]Dr. Farhat Leal CBC AUTO DIFFon 09-18-2021 BASO # 0.0 103/ul Normal 0.0-0.1 [facility] Comment on above: Performed By: #### C BC ####[facility] Hvjtrvnyhe5325[address] [place], [place] [address]Dr. Farhat Elvis Basophils/100 WBC (Bld) 0.4 % Normal 0.2-2.0 [facility] Comment on above: Performed By: #### C BC ####[facility] Bepufimabs03[address] [place], [place] [address]Dr. Farhat Leal EO # 0.1 103/ul Normal 0.0-0.7 [facility] Comment on above: Performed By: #### C BC ####[facility] Pgdpvlaslk2706[address] [place], [place] [address]Dr. Farhat Elvis Eosinophils/100 WBC (Bld) 0.8 % Critically low 0.9-7.0 [facility] Comment on above: Performed By: #### C BC ####[facility] Uqhpdsuyyl8210[address] [place], [place] [address]Dr. Farhat Leal Erythrocyte distribution width (RBC) [Ratio] 12.4 % Normal 11.0-15.0 [facility] Comment on above: Performed By: #### C BC ####[facility] Quxjaizlik[address] [place] [address]Dr. Farhat Leal Hematocrit (Bld) [Volume fraction] 41.7 % Critically low 42.0-54.0 [facility] Comment on above: Performed By: #### C BC ####[facility] Eupxqgetwt[address] [place] [address]Dr. Farhat Leal Hemoglobin (Bld) [Mass/Vol] 14.1 g/dL Normal 14.0-18.0 [facility] Comment on above: Performed By: #### C BC ####[facility] Relbayheys[address] [place] [address]Dr. Farhat Leal IG # 0.06 10e3/ul Critically high 0.00-0.03 [facility] Comment on above: Performed By: #### C BC ####[facility] Farloqaiql16[address] [place] [address]Dr. Farhat Leal IG % 0.6 % Critically high 0.0-0.5 [facility] Comment on above: Performed By: #### C BC ####[facility] Wjfgcbgnuo70[address] [place] [address]Dr. Farhat Leal LYMPH # 0.6 103/ul Critically low 1.2-3.8 [facility] Comment on above: Performed By: #### C BC ####[facility] Mlnepnvujk10[address] [place] [address]Dr. Farhat Leal Lymphocytes/100 WBC (Bld) 6.5 % Critically low 20.5-60.0 [facility] Comment on above: Performed By: #### C BC ####[facility] Iifyctjvbw6348 [place] [address]Dr. Madelynlorri Leal MANUAL DIFF REQ NO Normal [facility] Comment on above: Performed By: #### C BC ####[facility] Hzkfdnoezn00[address] [place], [place] [address]Dr. Farhat Leal MCH (RBC) [Entitic mass] 31.6 pg Normal 25.9-34.0 [facility] Comment on above: Performed By: #### C BC ####[facility] Hcdsmqudbx5936 [place] [phone]. Farhat Leal MCHC (RBC) [Mass/Vol] 33.8 g/dL Normal 29.9-35.2 [facility] Comment on above: Performed By: #### C BC ####[facility] Pwpvgqsqgm2052 [place] [phone]. Farhat Leal MCV (RBC) [Entitic vol] 93.5 fL Normal 80.0-94.0 [facility] Comment on above: Performed By: #### C BC ####[facility] Hxwekmluww3518 [place] [phone]. Farhat Leal MONO # 1.0 103/ul Critically high 0.3-0.8 [facility] Comment on above: Performed By: #### C BC ####[facility] Npqluzxmof25[address] [place] [address]Dr. Madelynlorri Leal Monocytes/100 WBC (Bld) 10.4 % Normal 1.7-12.0 [facility] Comment on above: Performed By: #### C BC ####[facility] Usmvpjfiva9[address] [place] [phone]. Farhat Leal NEUT # 7.8 103/ul Critically high 1.4-6.5 [facility] Comment on above: Performed By: #### C BC ####[facility] Naajkedpsf7136 [place] [phone]. Farhat Elvis Neutrophils/100 WBC (Bld) 81.3 % Critically high 43.0-75.0 [facility] Comment on above: Performed By: #### C BC ####[facility] [address]peb[address] [place] [phone]. Farhat Leal Platelet mean volume (Bld) [Entitic vol] 9.9 fL Normal 9.5-13.5 [facility] Comment on above: Performed By: #### C BC ####[facility] Bilatebodt4036 [place] [phone]. Madelynlorri Leal PLT 169 103/ul Normal 150-450 [facility] Comment on above: Performed By: #### C BC ####[facility] Ygafefcqub67[address] [place] [phone]. Farhat Leal RBC 4.46 106/ul Critically low 4.70-6.10 [facility] Comment on above: Performed By: #### C BC ####[facility] Xklmbzqfdz3303 [place] [phone]. Farhat Leal WBC 9.6 103/ul Normal 4.0-11.0 [facility] Comment on above: Performed By: #### C BC ####[facility] Nrnooqstrc35[address] [place] [phone]. Farhat Leal BASO # 0.0 103/ul Normal 0.0-0.1 [facility] Comment on above: Performed By: #### C BC ####[facility] Fvnhjbdrbv3885 [place] [phone]. Farhat Leal Basophils/100 WBC (Bld) 0.4 % Normal 0.2-2.0 [facility] Comment on above: Performed By: #### C BC ####[facility] Hexsabbqvo6874 [place] [phone]. Farhat Leal EO # 0.1 103/ul Normal 0.0-0.7 [facility] Comment on above: Performed By: #### C BC ####[facility] Fyztuafawk13[address] [place] [phone]. Farhat Leal Eosinophils/100 WBC (Bld) 1.1 % Normal 0.9-7.0 [facility] Comment on above: Performed By: #### C BC ####[facility] Loxxlzoppm3608 [place] [phone]. Farhat Leal Erythrocyte distribution width (RBC) [Ratio] 12.6 % Normal 11.0-15.0 [facility] Comment on above: Performed By: #### C BC ####[facility] Tognpwccpk1774 [place] [phone]. Farhat Leal Hematocrit (Bld) [Volume fraction] 40.8 % Critically low 42.0-54.0 [facility] Comment on above: Performed By: #### C BC ####[facility] Vbybfzjwkg8176 [place] [phone]. Farhat Leal Hemoglobin (Bld) [Mass/Vol] 13.6 g/dL Critically low 14.0-18.0 [facility] Comment on above: Performed By: #### C BC ####[facility] Bdriwadymz8365 [place] [phone]. Faraht Leal IG # 0.08 10e3/ul Critically high 0.00-0.03 [facility] Comment on above: Performed By: #### C BC ####[facility] Vgbrsstjvj[address] [place] [address]Dr. Farhat Leal IG % 0.9 % Critically high 0.0-0.5 [facility] Comment on above: Performed By: #### C BC ####[facility] K[address]reymrvl[address] [place] [address]Dr. Farhat Leal LYMPH # 0.8 103/ul Critically low 1.2-3.8 The [facility] Comment on above: Performed By: #### C BC ####[facility] Uzqzvzckjk[address] [place] [address]Dr. Farhat Leal Lymphocytes/100 WBC (Bld) 8.7 % Critically low 20.5-60.0 [facility] Comment on above: Performed By: #### C BC ####[facility] Kuwsofvoyi[address] [place] [address]Dr. Farhat Leal MANUAL DIFF REQ NO Normal [facility] Comment on above: Performed By: #### C BC ####[facility] Xnezjkcila[address] [place], [place] [address]Dr. Farhat Leal MCH (RBC) [Entitic mass] 31.6 pg Normal 25.9-34.0 [facility] Comment on above: Performed By: #### C BC ####[facility] Zexfhhngkn[address] [place], [place] [address]Dr. Farhat Leal MCHC (RBC) [Mass/Vol] 33.3 g/dL Normal 29.9-35.2 [facility] Comment on above: Performed By: #### C BC ####[facility] Iydozyodln5724 [place] [phone]. Farhat Leal MCV (RBC) [Entitic vol] 94.9 fL Critically high 80.0-94.0 [facility] Comment on above: Performed By: #### C BC ####[facility] Mgkzysecaz2731 [place] [phone]. Farhat Leal MONO # 1.0 103/ul Critically high 0.3-0.8 [facility] Comment on above: Performed By: #### C BC ####[facility] Ouravoasul7578 [place] [phone]. Farhat Leal Monocytes/100 WBC (Bld) 11.3 % Normal 1.7-12.0 [facility] Comment on above: Performed By: #### C BC ####[facility] Duksfcqqiy[address] [place], [place] [phone]. Farhat Leal NEUT # 6.9 103/ul Critically high 1.4-6.5 [facility] Comment on above: Performed By: #### C BC ####[facility] Hacjjlruvc[address] [place] [phone]. Farhat Leal Neutrophils/100 WBC (Bld) 77.6 % Critically high 43.0-75.0 [facility] Comment on above: Performed By: #### C BC ####[facility] Yiunzpxzfk4620 [place] [phone]. Farhat Leal Platelet mean volume (Bld) [Entitic vol] 9.7 fL Normal 9.5-13.5 [facility] Comment on above: Performed By: #### C BC ####[facility] Ifarmmsxnp8226 [place] [phone]. Farhat Leal PLT 171 103/ul Normal 150-450 [facility] Comment on above: Performed By: #### C BC ####[facility] Ttvewtedpo3797 [place] [phone]. Farhat Leal RBC 4.30 106/ul Critically low 4.70-6.10 [facility] Comment on above: Performed By: #### C BC ####[facility] Jwnoclyjtm0559 [place], [place] [address]Qp. Farhat Leal WBC 8.9 103/ul Normal 4.0-11.0 [facility] Comment on above: Performed By: #### C BC ####[facility] Depnvngtbn5655 [place], [place] [address]Rb. Farhat Elvis Covid-19 PCR (CVDTB)on SARS-CoV-2 (COVID-19) RNA JOSH+probe Ql (Unsp spec) Not detected Normal NOT DETECTED [facility] Comment on above: Result Comment: When [...] for this test is supported by the Public Health Nurse of Health and Human Service's declaration that [...] be used). Performed By: #### C VDTBH ####[facility] Cvjkftegaj35[address] [place] [address]DrSkylar Leal PROF 14(COMP METB)on 022 Albumin [Mass/Vol] 2.6 g/dL Critically low 3.4-5.0 [facility] Comment on above: Performed By: #### C MP ####[facility] Uzyvnkfntp7136 [place] [phone] Leal Albumin/Globulin [Mass ratio] 0.7 {ratio} Normal [facility] Comment on above: Performed By: #### C MP ####[facility] Roscetcnnr6974 [place] [phone] Leal ALP [Catalytic activity/Vol] 88 U/L Normal 46-116 [facility] Comment on above: Performed By: #### C MP ####[facility] Qyjpoghqnz1374 [place] [address]Dr. Farhat Leal ALT [Catalytic activity/Vol] 15 U/L Critically low 16-63 [facility] Comment on above: Performed By: #### C MP ####[facility] Rxvscledzw5066 [place] [address]Dr. Farhat Elvis Anion gap [Moles/Vol] 11.7 mmol/L Normal Th [facility] Comment on above: Performed By: #### C MP ####[facility] [address]kduteqxl[address] [place], [place] [address]Dr. Farhat Elvis AST [Catalytic activity/Vol] 25 U/L Normal 15-37 [facility] Comment on above: Performed By: #### C MP ####[facility] Adlwmfqkic[address] [place], [place] [address]Dr. Farhat Elvis Bilirubin [Mass/Vol] 0.6 mg/dL Normal 0.2-1.0 [facility] Comment on above: Performed By: #### C MP ####[facility] Teuwtqazfo[address] [place], [place] [address]Dr. Farhat Elvis Calcium [Mass/Vol] 8.9 mg/dL Normal 8.5-10.1 [facility] Comment on above: Performed By: #### C MP ####[facility] Szpdymcywl[address] [place], [place] [phone]. Farhat Elvis Chloride [Moles/Vol] 93 mmol/L Critically low 98-107 [facility] Comment on above: Performed By: #### C MP ####[facility] Hbucmweksc[address] [place], [place] [id number]. Madelynlorri Leal CO2 [Moles/Vol] 28.9 mmol/L Normal 21.0-32.0 [facility] Comment on above: Performed By: #### C MP ####[facility] Clyrtotrkl[address] [place], [place] [address]Dr. Madelynlorri Leal Creatinine [Mass/Vol] 2.09 mg/dL Critically high 0.70-1.30 [facility] Comment on above: Performed By: #### C MP ####[facility] Xojxbvxebt6396 [place] [address]Dr. Madelynlorri Elvis EGFR-AF MOZAMBICAN 38 mL/min/1.73m2 Critically low >=60 [facility] Comment on above: Performed By: #### C MP ####[facility] Blvlmypotg[address] [place], [place] [address]Dr. Farhat Leal EGFR-NON AF MOZAMBICAN 31 mL/min/1.73m2 Critically low >=60 [facility] Comment on above: Performed By: #### C MP ####[facility] Lqzrysqosh98[address] [place], [place] [address]Dr. Farhat Leal Globulin (S) [Mass/Vol] 3.7 g/dL Normal [facility] Comment on above: Performed By: #### C MP ####[facility] Ojnwhaayst[address] [place], [place] [address]Dr. Farhat Leal Glucose [Mass/Vol] 214 mg/dL Critically high 74-106 T [facility] Comment on above: Performed By: #### C MP ####[facility] Xohlofjwab17[address] [place], [place] [address]Dr. Farhat Leal Potassium [Moles/Vol] 5.6 mmol/L Critically high 3.5-5.1 [facility] Comment on above: Performed By: #### C MP ####[facility] Ingzutqjcd[address] [place], [place] [address]Dr. Farhat Leal Protein [Mass/Vol] 6.3 g/dL Critically low 6.4-8.2 Th [facility] Comment on above: Performed By: #### C MP ####[facility] Pnlnwnural45[address] [place], [place] [address]Dr. Farhat Leal Sodium [Moles/Vol] 128 mmol/L Critically low 136-145 Th [facility] Comment on above: Performed By: #### C MP ####[facility] Qxtldfnzwj[address] [place], [place] [address]Dr. Farhat Leal Urea nitrogen [Mass/Vol] 65.0 mg/dL Critically high 7.0-18.0 [facility] Comment on above: Performed By: #### C MP ####[facility] Szryctigyl[address] [place], [place] [address]Dr. Farhat Elvis Urea nitrogen/Creatinine [Mass ratio] 31.1 mg/mg Normal [facility] Comment on above: Performed By: #### C MP ####[facility] Baxkkqljub52[address] [place], [place] [address]Dr. Farhat Elvis Albumin [Mass/Vol] 2.5 g/dL Critically low 3.4-5.0 [facility] Comment on above: Performed By: #### T MYRIAM, CMP ####[facility] Ruisaskdic70[address] [place], [place] [address]Dr. Farhat Leal Albumin/Globulin [Mass ratio] 0.7 {ratio} Normal [facility] Comment on above: Performed By: #### T MYRIAM, CMP ####[facility] Qlqaiosrvy[address] [place], [place] [address]Dr. Madelynlorri Leal ALP [Catalytic activity/Vol] 83 U/L Normal 46-116 [facility] Comment on above: Performed By: #### T MYRIAM, CMP ####[facility] Eqxdwegquj85[address] [place], [place] [address]Dr. Farhat Elvis ALT [Catalytic activity/Vol] 16 U/L Normal 16-63 [facility] Comment on above: Performed By: #### T MYRIAM, CMP ####[facility] Pssczlqsdo50[address] [place], [place] [address]Dr. Farhat Elvis Anion gap [Moles/Vol] 9.7 mmol/L Normal [facility] Comment on above: Performed By: #### T MYRIAM, CMP ####[facility] Rowyyvrdxc85[address] [place], [place] [address]Dr. Farhat Elvis AST [Catalytic activity/Vol] 27 U/L Normal 15-37 [facility] Comment on above: Performed By: #### T MYRIAM, CMP ####[facility] Mmqbmecjnr88[address] [place], [place] [address]Dr. Farhat Leal Bilirubin [Mass/Vol] 0.5 mg/dL Normal 0.2-1.0 [facility] Comment on above: Performed By: #### T SH, CMP ####[facility] Ntvanawcah[address] [place], [place] [address]Dr. Farhat Leal Calcium [Mass/Vol] 8.8 mg/dL Normal 8.5-10.1 [facility] Comment on above: Performed By: #### T SH, CMP ####[facility] Lzquerquvt10[address] [place], [place] [address]Dr. Farhat Leal Chloride [Moles/Vol] 95 mmol/L Critically low 98-107 [facility] Comment on above: Performed By: #### T MYRIAM, CMP ####[facility] Jhqjfisxec[address] [place], [place] [address]Dr. Farhat Leal CO2 [Moles/Vol] 30.5 mmol/L Normal 21.0-32.0 [facility] Comment on above: Performed By: #### T MYRIAM, CMP ####[facility] Rltijeorhf07[address] [place], [place] [address]Dr. Farhat Leal Creatinine [Mass/Vol] 2.18 mg/dL Critically high 0.70-1.30 [facility] Comment on above: Performed By: #### T MYRIAM, CMP ####[facility] Rgjmvlsgox[address] [place], [place] [address]Dr. Farhat Leal EGFR-AF MOZAMBICAN 36 mL/min/1.73m2 Critically low >=60 [facility] Comment on above: Performed By: #### T MYRIAM, CMP ####[facility] Bdgzjgncvt[address] [place], [place] [address]Dr. Farhat Leal EGFR-NON AF MOZAMBICAN 30 mL/min/1.73m2 Critically low >=60 [facility] Comment on above: Performed By: #### T MYRIAM, CMP ####[facility] Mblinppzuq67[address] [place], [place] [address]Dr. Farhat Leal Globulin (S) [Mass/Vol] 3.5 g/dL Normal [facility] Comment on above: Performed By: #### T MYRIAM, CMP ####[facility] Jltudfqtiz0[address] [place], [place] [address]Dr. Madelynlorri Leal Glucose [Mass/Vol] 141 mg/dL Critically high 74-106 T [facility] Comment on above: Performed By: #### T SH, CMP ####[facility] Cdnvmgqhdn[address] [place], [place] [address]Dr. Farhat Leal Potassium [Moles/Vol] 5.2 mmol/L Critically high 3.5-5.1 [facility] Comment on above: Performed By: #### T SH, CMP ####[facility] Zivpouomjx[address] [place], [place] [address]Dr. Farhat Leal Protein [Mass/Vol] 6.0 g/dL Critically low 6.4-8.2 [facility] Comment on above: Performed By: #### T MYRIAM, CMP ####[facility] Xvsxpoivlg34[address] [place], [place] [address]Dr. Farhat Leal Sodium [Moles/Vol] 130 mmol/L Critically low 136-145 [facility] Comment on above: Performed By: #### T MYRIAM, CMP ####[facility] Udtpfbuttv[address] [place], [place] [address]Dr. Farhat Leal Urea nitrogen [Mass/Vol] 63.0 mg/dL Critically high 7.0-18.0 [facility] Comment on above: Performed By: #### T MYRIAM, CMP ####[facility] Uwgnokfhea62[address] [place], [place] [address]Dr. Farhat Leal Urea nitrogen/Creatinine [Mass ratio] 28.9 mg/mg Normal [facility] Comment on above: Performed By: #### T SH, CMP ####[facility] Tvnamslscl[address] [place], [place] [address]Dr. Farhat Leal PROTIMEon 09-18-2021 INR Coag (PPP) [Relative time] 1.06 {INR} Normal [facility] Comment on above: Performed By: #### P T, PTT ####[facility] Ftgqpknigr[address] [place], [place] [address]Dr. Farhat Leal INR GUIDELINES SEE BELOW Normal [facility] Comment on above: Result Comment: MALINA RED INR: 2.0 - 3.0 CONDITIONS NOT LISTED BELOW 2.5 - 3.5 FOR PROSTHETIC HEART VALVE REPLACEMENT 2.5 - 3.5 RECURRENT THROMBOSIS Performed By: #### P T, PTT ####[facility] Xmr[address]zeddt[address] [place] [address]Dr. Farhat Leal PT Coag (PPP) [Time] 11.4 s Normal 9.0-11.6 [facility] Comment on above: Performed By: #### P T, PTT ####[facility] Elpyvhaxxx[address] [place] [address]Dr. Farhat Leal PTTon 09-18-2021 aPTT Coag (Bld) [Time] 27.9 s Normal 22.3-36.2 [facility] Comment on above: Performed By: #### P T, PTT ####[facility] Xaplcpqcns04[address] [place] [address]Dr. Farhat Leal TSHon 09-18-2021 TSH 7.099 uIU/mL Critically high 0.358-3.740 [facility] Comment on above: Performed By: #### T SH, CMP ####[facility] Nyywebnbgq54[address] [place], [place] [address]Dr. Farhat Leal US SALOME DOP LEG RTon 09-19-19 22 US SALOME DOP LEG RT Normal [facility] XR CHEST 1 Von 09-18-2021 XR CHEST 1 V Normal [facility] XR HIP RT 2 3V W PELVISon XR HIP RT 2 3V W PELVIS Normal [facility] Vital Signs Date Time Vital Sign Value Performing Clinician Facility 03-18-2023 13:37-0500 Body temperature 98.01 [degF] [place] [facility] Work Phone: [facility] 03-18-2023 13:37-0500 Diastolic blood pressure 64 mm[Hg] [facility] DO Work Phone: [facility] 03-18-2023 13:37-0500 Heart rate 72 /min [facility] [employer] Work Phone: [facility] 03-18-2023 13:37-0500 SaO2% (BldA) [Mass fraction] 98 % Ni Petznick DO Work Phone: [facility] 03-18-2023 13:37-0500 Systolic blood pressure 118 mm[Hg] Ni Petznick DO Work Phone: [facility] 07-20-2022 13:35-0400 Body temperature 97.4 [degF] DO Devon Ball Work Phone: [facility] 07-20-2022 13:35-0400 Diastolic blood pressure 50 mm[Hg] DO Devon Ball Work Phone: [facility] 07-20-2022 13:35-0400 Heart rate 67 /min DO Devon Ball Work Phone: [facility] 07-20-2022 13:35-0400 Respiratory rate 20 /min DO Devon Ball Work Phone: [facility] 07-20-2022 13:35-0400 Systolic blood pressure 98 mm[Hg] DO Devon Ball Work Phone: [facility] 06-29-2022 14:46-0400 Body height 193.04 cm DO Devon Ball Work Phone: [facility] 02-26-2022 13:11-0500 Body temperature 96.6 [degF] Hina Peterson MD Work Phone: [facility] 02-26-2022 13:11-0500 Diastolic blood pressure 75 mm[Hg] Hina Peterson MD Work Phone: [facility] 02-26-2022 13:11-0500 Heart rate 75 /min Hina Peterson MD Work Phone: [facility] 02-26-2022 13:11-0500 Systolic blood pressure 88 mm[Hg] Hina Peterson MD Work Phone: [facility] 02-05-2022 08:29-0500 Body temperature 96.69 [degF] [facility] Work Phone: [facility] 02-05-2022 08:29-0500 Diastolic blood pressure 42 mm[Hg] [facility] Work Phone: [facility] 02-05-2022 08:29-0500 Heart rate 79 /min [facility] Work Phone: [facility] 02-05-2022 08:29-0500 SaO2% (BldA) [Mass fraction] 100 % [facility] Work Phone: [facility] 02-05-2022 08:29-0500 Systolic blood pressure 72 mm[Hg] [facility] Work Phone: [facility] 01-12-2022 11:00-0500 Diastolic blood pressure 54 mm[Hg] Alissa Major [employer] Work Phone: [facility] 01-12-2022 11:00-0500 Heart rate 88 /min Alissa Major [employer] Work Phone: [facility] 01-12-2022 11:00-0500 SaO2% (BldA) [Mass fraction] 93 % Alissa Major [employer] Work Phone: [facility] 01-12-2022 11:00-0500 Systolic blood pressure 96 mm[Hg] Alissa Major [employer] Work Phone: [facility] 01-12-2022 10:12-0500 Body temperature 97.9 [degF] Alissa Major [employer] Work Phone: [facility] 01-12-2022 10:12-0500 Respiratory rate 18 /min Alissa Major [employer] Work Phone: [facility] 11-17-2021 15:59-0400 Body height 193 cm No Reeder DO Work Phone: [facility] 11-17-2021 15:59-0400 Body weight 111.58 kg No Reeder DO Work Phone: [facility] 11-17-2021 15:59-0400 Diastolic blood pressure 59 mm[Hg] No Reeder DO Work Phone: [facility] 11-17-2021 15:59-0400 Heart rate 86 /min No Reeder DO Work Phone: [facility] 11-17-2021 15:59-0400 SaO2% (BldA) [Mass fraction] 97 % No Reeder DO Work Phone: [facility] 11-17-2021 15:59-0400 Systolic blood pressure 104 mm[Hg] No Reeder DO Work Phone: [facility] Encounters Encounter Date Encounter Type Care Provider Facility Start: 04-11-2023 End: 04-11-2023 ambulatory Devon Moreira Other [employer] Other Start: 04-11-2023 Telephone encounter Devon Manzo [facility] Start: 03-18-2023 End: 03-18-2023 ambulatory NI CABRERA Not Available Start: 03-18-2023 End: 03-18-2023 Office outpatient visit 25 minutes Ni Cabrera DO Work Phone: [facility] [phone] Comment on above: 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 ([facility]/HCC) (Primary Dx); 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); 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); Type 1 diabetes mellitus with hypoglycemia and without coma (CMS/HCC); 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 (CMS/HCC) Start: 02-17-2023 End: 02-17-2023 ambulatory Devon Moreira Other [employer] Other Start: 02-17-2023 Telephone encounter Devon NUNEZ An[facility] [place] [facility] Start: 01-14-2023 End: 01-14-2023 ambulatory Devon Lillie Other [employer] Other Start: 01-14-2023 Sbsq nursing facil c are/day minor complj 15 min Devon Moreira [facility] Start: 12-10-2022 End: 12-10-2022 ambulatory Devon Lillie Other [employer] Other Start: 12-10-2022 Sbsq nursing facil c are/day minor complj 15 min [facility] Start: 11-12-2022 End: 11-12-2022 ambulatory Devon Moreira Other [employer] Other Start: 11-12-2022 Sbsq nursing facil c are/day minor complj 15 min [facility] Start: 10-16-2022 Refill Asia Pike MD Work Phone: [facility] Comment on above: Med Change Request Start: 10-12-2022 End: 10-12-2022 ambulatory Devon Moreira Other [employer] Other Start: 10-12-2022 Telephone encounter Devno Moreira [facility] Start: 10-08-2022 End: 10-08-2022 ambulatory Devon Moreira Other [employer] Other Start: 10-08-2022 Sbsq nursing facil c are/day new problem 25 min [facility] Start: 09-22-2022 [facility] Comment on above: Rx Refills Start: 09-10-2022 End: 09-10-2022 ambulatory Devon Moreira Other [employer] Other Start: 09-10-2022 Sbsq nursing facil c are/day new problem 25 min [facility] Start: 09-09-2022 End: 09-09-2022 ambulatory [facility] Start: 08-06-2022 End: 08-06-2022 ambulatory Devon Moreira Other [employer] Other Start: 08-06-2022 Sbsq nursing facil c are/day new problem 25 min [facility] Start: 07-22-2022 End: 07-22-2022 ambulatory Devon Moreira Other [employer] Other Start: 07-22-2022 Telephone encounter Devon Manzo [place] [facility] Start: 07-20-2022 End: 07-20-2022 ambulatory Sadia Aguilar Facility:[facility] Start: 07-20-2022 End: 07-20-2022 ambulatory DO Devon Moreira Work Phone: [facility] Work Phone: Start: 07-20-2022 End: 07-20-2022 Discharged Recurring DO Devon Moreira Work Phone: [facility] Work Phone: Start: 07-13-2022 End: 07-13-[address] DEVON MOREIRA Facility:[facility] Start: 07-10-2022 End: 07-10-[address] DEVON MOREIRA Facility:[facility] Start: 07-03-2022 End: 07-03-[address] DEVON MOREIRA Facility:[facility] Start: 06-26-2022 End: 06-26-[address] DEVON MOREIRA Facility:[facility] Start: 06-26-2022 End: 06-26-[address] DEVON MOREIRA Facility:[facility] Start: 06-25-2022 End: 06-25-2022 ambulatory Devon Moreira Other [employer] Other Start: 06-25-2022 Sbsq nursing facil c are/day minor complj 15 min Devon Moreira [facility] Start: 06-19-2022 End: 06-19-[address] DEVON MOREIRA Facility:[facility] Start: 06-15-2022 End: 07-15-2022 ambulatory SHAIKH Kate MURRAY Facility:[facility] Start: 06-12-2022 End: 06-12-[address] DOCTOR WALSH Facility:[facility] Start: 06-05-2022 Sbsq nursing facil c are/day new problem 25 min Devon Moreira [facility] Start: 06-05-2022 End: 06-05-[address] DEVON MOREIRA [facility] [employer] Other Start: 05-29-2022 End: 05-29-[address] DEVON MOREIRA Facility:[facility]1 Start: 05-22-2022 End: 05-22-[address] DEVON MOREIRA Facility:[facility]1 Start: 05-20-2022 End: 05-20-[address] DEVON MOREIRA Facility:H1 Start: 05-18-2022 End: 06-12-2022 ambulatory SHAIKH Kate MURRAY Facility:[facility]1 Start: 05-15-2022 End: 05-15-[address] DEVON MOREIRA Facility:[facility]1 Start: 05-13-2022 End: 05-13-2022 ambulatory Van Olivarez CHINA PAINTER.STOCK DRIER TENDER Work Phone: [facility] Comment on above: results Start: 05-13-2022 E-mail encounter fro m caregiver Van Olivarez APRN.STOCK DRIER TENDER Work Phone: [facility] Start: 05-08-2022 End: 05-08-[address] DEVON MOREIRA Facility:[facility]1 Start: 05-07-2022 End: 05-07-2022 ambulatory Devon Moreira Other [employer] Other Start: 05-07-2022 Sbs nursing facil c are/day new problem 25 min Devon Moreira [facility] Start: 05-06-2022 End: 05-06-2022 ambulatory [...] MOREIRA Facility:H1 Start: 04-02-2022 ambulatory Van cortes CHINA PAINTER.STOCK DRIER TENDER Work Phone: [facility] Start: 04-01-2022 End: 04-01-[address] DEVON MOREIRA Facility:[facility]1 Start: 03-22-2022 Refill Asia Pike MD Work Phone: [facility] Comment on above: Med Change Request Start: 03-21-2022 ambulatory SHAIKH Kate MURRAY Facilit y:H1 Start: 03-11-2022 End: 03-11-[address] DEVON MOREIRA Facility:[facility]1 Start: 03-10-2022 End: 03-10-2022 ambulatory [facility] Start: 02-27-2022 Refill Samira S[facility] Comment on above: Rx Refills Start: 02-26-2022 End: 02-26-2022 ambulatory DEVON MOREIRA Facility:[facility] Start: 02-26-2022 End: 02-26-2022 Patient encounter procedure [...] Start: 02-05-2022 End: 02-06-2022 ambulatory ARTUR CHEN Facility:[facility] Start: 02-05-2022 End: 02-05-2022 Patient encounter procedure [facility] Work Phone: [facility] Comment on above: Kidney replaced by t ransplant (Primary Dx); 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; 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 Start: 01-26-2022 End: 01-26-[address] DEVON MOREIRA Facility:[facility]1 Start: 01-20-2022 Telephone encounter Van Olivarez APRN.STOCK DRIER TENDER Work Phone: Kidney Medicine [facility] Comment on above: Results Start: 01-19-2022 End: 01-19-[address] DEVON MOREIRA Facility:[facility]1 Start: 01-16-2022 ambulatory SHAIKH Kate MURRAY Facilit y:[facility]1 Start: 01-12-2022 End: 01-12-2022 Subsequent hospital visit by physician Alissa Chavira APRN.STOCK DRIER TENDER Work Phone: Angio Comment on above: ILIANA (acute kidney in jury) ([facility]) [N17.9] Start: 12-30-2021 End: 12-30-2021 ambulatory Paresh Fonseca MD Work Phone: Infectious Disease Comment on above: MRSA bacteremia (Arabella munira Dx); Diabetic foot ulcer with osteomyelitis (HCC) Start: 12-30-2021 End: 12-30-2021 Telemedicine consultation with patient Paresh Fonseca MD Work Phone: [facility] Start: 12-29-2021 End: 12-29-2021 [...] Start: 12-08-2021 Orders Only Artur Burger charles CHINA PAINTER.STOCK DRIER TENDER Work Phone: [facility] Comment on above: [...] 12-01-2021 Patient encounter procedure Ccf Prov ider [facility] Department Start: 11-23-2021 End: 11-28-2021 Evaluation [...] Start: 11-14-2021 End: 11-15-2021 ambulatory ASHLEY Cortes [facility] Facility:H1 Start: 10-24-2021 End: 11-15-2021 ambulatory SHAIKH Kate MURRAY Facility:H1 Start: 10-22-2021 End: 10-23-2021 ambulatory [facility] Sebastian [facility] Facility:H1 Start: 10-06-2021 ambulatory Van cortes CHINA PAINTER.STOCK DRIER TENDER Work Phone: [facility] Start: 09-30-2021 Refill Asia Pike MD Work Phone: [facility] Comment on above: Refill Request Start: 09-19-2021 End: 09-24-2021 Evaluation and management of inpatient DR PROSPER LEES Facility:H1 Start: 09-18-2021 End: 09-19-[address] DEVON MOREIRA Facility:[facility]1 Start: 07-11-2021 Refill Asia Pike MD Work Phone: [facility] Comment on above: Refill Request Start: 06-05-2021 Telephone encounter Van Olivarez CHINA PAINTER.STOCK DRIER TENDER Work Phone: [facility] Comment on above: Results Start: 02-05-2021 End: 02-13-2021 ambulatory UNKNOWN PROVIDER Facility:[facility] Procedures Date Procedure Procedure Detail Performing Clinician Start: 03-18-2023 Hemoglobin glycosyla rk a1c Ni Cabrera DO Work Phone: Start: 02-05-2022 Creatinine other source Asia Pike MD Work Phone: Start: 02-05-2022 Urnls dip stick/tabl et rgnt auto w/o microscopy Asia Pike MD Work Phone: Start: 01-12-2022 Prothrombin time Alissa Chavira CHINA PAINTER.STOCK DRIER TENDER Work Phone: Start: 12-01-2021 [facility] CHECK Ccf Provider Start: 11-29-2021 Microscopic examinat ion of blood, culture DR PROSPER LEES Comment on above: Performed By: #### B [id number] ####[facility] [id number] [place], [place] [address]GmSkylar Leal Start: 11-27-2021 Insertion of Infusio n [...] renal transplant KIDNEY TRANSPLANT STATUS Van Olivarez CHINA PAINTER.STOCK DRIER TENDER Work Phone: History of renal transplant Kidney replaced by transplant Artur Chen CHINA PAINTER.STOCK DRIER TENDER Work Phone: History of renal transplant Kidney replaced by transplant [facility] Work Phone: History of renal transplant Devon Lillie Other History of renal transplant Kidney replaced by transplant Asia Pike MD Work Phone: History of renal transplant Devon Moreira Other Plan of Treatment Date Care Activity Detail Author Start: 06-17-2023 End: 06-17-2023 Patient encounter procedure 06/17/2023 2:15 PM EDT Office Visit [facility] [address] [place] [address] Ni Cabrera DO [address] [place] [address] [facility] [address] Start: 06-16-2023 Hemoglobin A1c measurement Diabetes: Hemoglobin A1C [facility] Start: 02-26-2023 BP CONTROLLED (<130/80) BP CONTROLLE D (<130/80) [facility] Start: 02-05-2023 BP CONTROLLED (<130/80) BP CONTROLLE D (<130/80) [facility] Start: 01-12-2023 BP CONTROLLED (<130/80) BP CONTROLLE D (<130/80) [facility] Start: 11-17-2022 BP CONTROLLED (<130/80) BP CONTROLLE D (<130/80) [facility] Start: 10-16-2022 Influenza vaccination C [facility] Start: 05-15-2022 Medicare Annual Wellness (AWV) Medicare Annual Wellness (AWV) [facility] Start: 04-08-2022 BP CONTROLLED (<130/80) BP CONTROLLE D (<130/80) [facility] Start: 02-15-2022 ADVANCE DIRECTIVE DISCUSSION ADVANCE DIRECTIVE DISCUSSION [facility] Start: 02-15-2022 DEPRESSION ASSESSMENT DEPRESSION ASS ESSMENT [facility] Start: 02-05-2022 COVID-19 VACCINE (5 - Yung risk series) COVID-19 VACCINE (5 - Yung risk series) [facility] Start: 11-27-2021 COVID-19 VACCINE (4 - Booster for Yung series) COVID-19 VACCINE (4 - Booster for Yung series) [facility] Start: 11-04-2021 Hemoglobin A1c/Hemoglobin.total in Blood HBA1C [facility] Start: 10-16-2021 Influenza vaccination C [facility] Start: 03-26-2021 COVID-19 VACCINE (3 - Yung risk 3-dose series) COVID-19 VACCINE (3 - Yung risk 3-dose series) [facility] Start: 03-26-2021 COVID-19 VACCINE (3 - Yung risk series) COVID-19 VACCINE (3 - Yung risk series) [facility] Start: 02-15-2021 ADVANCE DIRECTIVE DISCUSSION ADVANCE DIRECTIVE DISCUSSION [facility] Start: 02-15-2021 DEPRESSION ASSESSMENT DEPRESSION ASS ESSMENT [facility] Start: 01-05-2016 Hepatitis B screening URINE AL BUMIN:CREATININE RATIO [facility] Start: 07-31-2015 Pneumococcal Vaccine : 65+ Years (3 - PCV) Pneumococcal Vaccine: 65+ Years (3 - PCV) [facility] Start: 04-06-2015 Hemoglobin A1c/Hemoglobin.total in Blood HBA1C [facility] Start: 11-22-2010 Hepatitis B surface antibody level LDL CHOLESTEROL [facility] Start: 2009 ADULT PREVNAR-13 ADULT PREVNAR-13 Cl [facility] Start: 2009 PNEUMOVAX AGE 65 AND OVER WITH 5YR LOOKBACK (#1) PNEUMOVAX AGE 65 AND OVER WITH 5YR LOOKBACK (#1) [facility] Start: 1994 SHINGRIX VACCINE (1 of 2) SHINGRIX VACCINE (1 of 2) [facility] Start: 10-18-1963 HEPATITIS A (1 of 2 - Risk 2-dose series) HEPATITIS A (1 of 2 - Risk 2-dose series) [facility] Start: 10-18-1963 Hepatitis A Vaccine (1 of 2 - Risk 2-dose series) Hepatitis A Vaccine (1 of 2 - Risk 2-dose series) [facility] Start: 10-18-1963 SHINGRIX VACCINE (1 of 2) SHINGRIX VACCINE (1 of 2) [facility] Start: 10-18-1963 Urine microalbumin profile [facility] Start: 1962 ANNUAL PCP TEAM MICROPALEONTOLOGIST MATTHEW DISEASE VISIT ANNUAL PCP TEAM CHRONIC DISEASE VISIT [facility] Start: 1956 Adult depression screening assessment DEPRESSION SCREENING [facility] Start: 1954 3 comp foot exam completed DIABETIC FOOT EXAM [facility] Start: 1954 Glaucoma screening Diabetes: R etinopathy Screening [facility] Start: 1954 Hepatitis C antibody , confirmatory test DILATED RETINAL EXAM [facility] Start: 1950 Pneumococcal Vaccine : 65+ (1 - PCV) Pneumococcal Vaccine: 65+ (1 - PCV) [facility] Start: 1950 PNEUMOCOCCAL: 65+ (1 - PCV) PNEUMOCOCCAL: 65+ (1 - PCV) [facility] Start: 1945 HEPATITIS A (1 of 2 - Risk 2-dose series) HEPATITIS A (1 of 2 - Risk 2-dose series) [facility] URINALYSIS, REFLEX MICROSCOPIC URINALYSIS, REFLEX MICROSCOPIC Lab Routine Screening for genitourinary condition Ordered: 10/06/2021 [facility] Work Phone: Comment on above: Ordered: 10/06/2021 URINALYSIS, REFLEX MICROSCOPIC URINALYSIS, REFLEX MICROSCOPIC Lab Routine Screening for genitourinary condition Ordered: 04/02/2022 [facility] Work Phone: Comment on above: Ordered: 04/02/2022 End: 11-17-2022 US LEG ARTERIAL PERIPH UNL VAS LAB US LEG ARTERIAL PERIPH UNL VAS LAB Vascular Lab Routine PAD (peripheral artery disease) (HCC) Nonhealing ulcer of heel (HCC) 1 Occurrences starting 11/17/2021 until 11/17/2022 [facility] Work Phone: Comment on above: 1 Occurrences starti ng 11/17/2021 until 11/17/2022 End: 11-17-2022 US LEG VEIN DVT UNL VAS LAB US LEG VEIN DVT UNL VAS LAB Vascular Lab Routine Acute deep vein thrombosis (DVT) of proximal end of right lower extremity (HCC) 1 Occurrences starting 11/17/2021 until 11/17/2022 [facility] Work Phone: Comment on above: 1 Occurrences starti ng 11/17/2021 until 11/17/2022 [facility] VAS [facility] Immunizations Immunization Date Immunization Notes Care Provider Fa cili 12-11-2021 COVID-19 booster vaccine, age 12+ yr, bivalent (PFIZER-BIONTECH) Paresh Fonseca MD Work Phone: [facility] 12-11-2021 influenza, high-dose , quadrivalent vaccine (FLUZONE HIGH DOSE QUADRIVALENT) Paresh Fonseca MD Work Phone: [facility] 12-11-2021 influenza virus vaccine, unspecified formulation [facility] 10-24-2021 influenza, high dose seasonal, preservative-free Ni Petznick DO Work Phone: [facility] 01-19-2019 influenza, high dose seasonal, preservative-free Ni Petznick DO Work Phone: [facility] 11-25-2017 Seasonal trivalent influenza vaccine, adjuvanted, preservative free Ni Petznick DO Work Phone: [facility] 11-05-2016 influenza, high dose seasonal, preservative-free Ni Petznick DO Work Phone: [facility] 07-30-2014 pneumococcal polysaccharide vaccine, 23 valent Ni Petznick DO Work Phone: [facility] 03-09-2011 influenza virus vaccine, unspecified formulation Van Olivarez APRN.STOCK DRIER TENDER Work Phone: [facility] 12-17-2007 influenza virus vaccine, unspecified formulation Van Olivarez APRN.STOCK DRIER TENDER Work Phone: [facility] Work Phone: 02-11-2006 influenza virus vaccine, unspecified formulation Van Olivarez CHINA PAINTER.STOCK DRIER TENDER Work Phone: [facility] Work Phone: 12-07-2003 influenza virus vaccine, unspecified formulation Van Olivarez CHINA PAINTER.STOCK DRIER TENDER Work Phone: [facility] Work Phone: 12-07-2003 pneumococcal polysaccharide vaccine, 23 valent Van Olivarez CHINA PAINTER.[facility] Work Phone: [facility] Work Phone: NEGATED: Highlighted row has not occurred!12-10-2021 COVID-19 booster vaccine, age 12+ yr, bivalent (Pixlee) Paresh Fonseca MD Work Phone: [facility] NEGATED: Highlighted row has not occurred!12-10-2021 influenza, high-dose, quadrivalent vaccine (FLUZONE HIGH DOSE QUADRIVALENT) Paresh Fonseca MD Work Phone: [facility] Payers Date Payer Category Payer Medicare MEDICARE MEDICAR E A AND B [id number] 2009-Present [phone] [address] [address] [place] [address] Medicare [id number] 2009 Medicare [id number] [id number] .[id number] 2009 Unknown [employer] [place] [employer] [place] MEDICARE SUPPLEMENT [id number] 2009-Present [phone] [employer] [address] Indemnity [id number] [id number] .[id number] 2009 Unknown 1.2.840.498424. 1.13.159.2.7.3 .769242.315 2009 Unknown [id number] 2.16.8 40.1.886531.19 2009 Unknown [id number] 1959 Medicare [id number] 1959 Self-pay 1944 Unknown [id number] 2.16.840.1.264622.3.579.2.732 1944 Unknown [id number] 2.16.840.1.752986.3.579.2.593 1944 Unknown [id number] 2.16.840.1.393340.3.579.2.593 1944 Unknown [id number] 2.16.840.1.515103.3.579.2.593 1944 Unknown [id number] 2.16.840.1.758108.3.579.2.593 1944 Unknown [id number] 2.16.840.1.932034.3.579.2.593 1944 Unknown [id number] 2.16.840.1.486359.3.579.2.593 1944 Unknown [id number] 2.16.840.1.858896.3.579.2.593 1944 Unknown [id number] 2.16.840.1.996824.3.579.2.593 1944 Unknown [id number] 2.16.840.1.343700.3.579.2.593 1944 Unknown [id number] 2.16.840.1.946327.3.579.2.593 1944 Unknown [id number] 2.16.840.1.848108.3.579.2.593 1944 Unknown [id number] 2.16.840.1.040749.3.579.2.593 1944 Unknown [id number] 2.16.840.1.606531.3.579.2.593 1944 Unknown [id number] 2.16.840.1.196191.3.579.2.593 1944 Unknown [id number] 2.16.840.1.356059.3.579.2.593 1944 Unknown [id number] 2.16.840.1.927017.3.579.2.593 1944 Unknown [id number] 2.16.840.1.511794.3.579.2.593 1944 Unknown [id number] 2.16.840.1.740330.3.579.2.593 1944 Unknown [id number] 2.16.840.1.328664.3.579.2.593 1944 Unknown [id number] 2.16.840.1.234215.3.579.2.593 1944 Unknown [id number] 2.16.840.1.799849.3.579.2.593 1944 Unknown [id number] 2.16.840.1.429024.3.579.2.593 1944 Unknown [id number] 2.16840.1.465124.3.579.2.593 1944 Unknown [id number] 2.16.840.1.364445.3.579.2.593 1944 Unknown [id number] 2.16.840.1.990910.3.579.2.593 1944 Unknown [id number] 2.16.840.1.609200.3.579.2.593 1944 Unknown [id number] 2.16.840.1.868950.3.579.2.593 1944 Unknown [id number] 2.16.840.1.083489.3.579.2.593 1944 Unknown [id number] 2.16.840.1.118944.3.579.2.593 1944 Unknown [id number] 2.16.840.1.120815.3.579.2.593 1944 Unknown [id number] 2.16.840.1.909903.3.579.2.593 1944 Unknown [id number] 2.16.840.1.271117.3.579.2.593 1944 Unknown [id number] 2.16.840.1.087274.3.579.2.593 1944 Unknown [id number] 2.16.840.1.113109.3.579.2.593 1944 Unknown [id number] 2.16.840.1.368959.3.579.2.593 1944 Unknown [id number] 2.16.840.1.099960.3.579.2.593 1944 Unknown [id number] 2.16.840.1.082378.3.579.2.593 1944 Unknown [id number] 2.16.840.1.162050.3.579.2.593 1944 Unknown [id number] 2.16.840.1.894001.3.579.2.593 1944 Unknown [id number] 2.16.840.1.994188.3.579.2.593 1944 Unknown [id number] 2.16.840.1.069857.3.579.2.593 1944 Unknown [id number] 2.16.840.1.439220.3.579.2.593 1944 Unknown [id number] 2.16.840.1.092528.3.579.2.593 1944 Unknown [id number] 2.16.840.1.244074.3.579.2.593 1944 Unknown [id number] 2.16.840.1.533046.3.579.2.593 1944 Unknown [id number] 2.16.840.1.155649.3.579.2.593 1944 Unknown [id number] 2.16.840.1.017474.3.579.2.125 9 Medicare Medicare Outpatient [id number] 2T [id number] Unknown [id number] 2.16.840.1.826250.3.579.2.593 Unknown [id number] 2.16.840.1.783753.3.579.2.593 Unknown [id number] 2.16.840.1.005582.3.579.2.531 Social History Date Type Detail Facility Start: 03-09-2011 End: 07-07-2022 Tobacco smoking status NHIS Ex-smoker [facility] Work Phone: End: 02-15-1975 History of tobacco use Current smoker [facility] Work Phone: End: 02-15-1975 History of tobacco use Cigarette Smoker [facility] Work Phone: Start: 04-08-2021 End: 02-26-2022 Alcohol intake Current drinker of alcohol (finding) [facility] Start: 1945 Sex Assigned At Not on file C [facility] Start: 03-09-2011 End: 10-20-2022 Cigarettes smoked current (pack per day) - Reported 1 [facility] Work Phone: Start: 03-09-2011 End: 02-26-2022 Tobacco use and exposure Smokeless tobacco non-user [facility] Start: 09-25-2021 History SDOH Financial 5 [facility] Start: 09-25-2021 History SDOH Food Worry 1 [facility] Start: 09-25-2021 History SDOH Transpo rt Med 2 [facility] Start: 09-14-2021 End: 01-12-2022 Exposure to SARS-CoV-2 (event) Not sure [facility] Start: 02-26-2022 End: 10-20-2022 Sex Assigned At [facility] Work Phone: Start: 1945 Sex Assigned At Male F [facility] How hard is it for y ou to pay for the very basics like food, housing, medical care, and heating Not hard at all [facility] Work Phone: (I/We) worried wheth er (my/our) food would run out before (I/we) got money to buy more. Never true [facility] Work Phone: In the past 12 month s, was there a time when you were not able to pay the mortgage or rent on time? No [facility] Work Phone: Start: 03-18-2023 Alcohol intake Ex-drinker (finding) [facility] How often to you hav e a drink containing alcohol? Never [facility] Medical Equipment Procedure Code Equipment Code Equipment Original Text Equipment Identifier Dates Tray Powerline S urecuff 5fr Polyurethane Catheter 1 Lumen Microintroducer - [id number] Start: 12-06-2021 Clinical Notes 06-05-2021 to [...] (ICD-10 - Z89.619) WC dependent. 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 He is being transported by a driver merchandiser. 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 documented in this [facility] [id number] Evaluation note* Encounter Date Diagnosis Assessment Notes [...] are maintaining regular scheduled appts with their well logging captain. No bleeding complications Dec, Hyperlipidemia LDL goal [...] fluid balance and to avoid dehydration. Dec, retirement (current) use of insulin (ICD-10 - Z79.4) [employer] Other 10-26-2023 Evaluation note* Encounter Date Diagnosis Assessment Notes Treatment Notes Treatment Clinical Notes Nov, Longstanding persistent atrial fibrillation (ICD-10 - I48.11) This patient is in NSR or rate controlled. This patient is anticoagulated to prevent thromboembolic events. They are maintaining regular scheduled appts with their well logging captain. 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 No bleeding complications Oct, Type 1 diabetes [...] - Z94.0) Continue routine surveillance labs. 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 DX Code Needed. 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 No bleeding complications Sep, Type 1 diabetes [...] risk for cerebrovascular and cardiovascular disease. 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 Please review and advise. Ariadna Mcdowell, documented in this encounterMer[facility]07-27-20[facility] Evaluation note* Encounter Date Diagnosis Assessment Notes Treatment Notes Treatment Clinical Notes Aug, Longstanding persistent atrial fibrillation (ICD-10 - I48.11) This patient is in NSR or rate controlled. This patient is anticoagulated to prevent thromboembolic events. They are maintaining regular scheduled appts with their well logging captain. No s/s bleeding Aug, Type 1 diabetes [...] risk for cerebrovascular and cardiovascular disease. 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 Lightheaded in the office today, as BP is very low. He denies chest pain, SOB, palpitations, and bleeding on warfarin. Had routine labs last week. Review of Systems Musculoskeletal: Positive for arthritis, joint pain and myalgias. Neurological: Positive for light-headedness. All other systems reviewed and are negative.[place] 09-09-2022 NoteUT Electrophysiology Consult Note Reason for [...] about 50-60 systolic. patient with friend/ driver merchandiser from facility, we will take patient to [...] of the right coronary artery with robust wdzz-ke-[id number] collaterals. 5. Normal global left ventricular systolic [...] Follow up with Dr. Galvez in the [facility] in the next 2 weeks; he may follow up with Dr. Orosco as needed for interventional issues. 5. Follow up with Dr. Devon Moreira as scheduled. PMH: Past Medical History: Diagnosis Date Abnormal ECG Arrhythmia Atrial fibrillation (CMS/HCC) Chronic kidney disease Coronary artery disease Diabetes mellitus (CMS/HCC) (more content not included)...[place]06-22-2023 Evaluation note* Encounter Date Diagnosis Assessment Notes [...] are maintaining regular scheduled appts with their well logging captain. No bleeding complications Jul, Type 1 diabetes [...] risk for cerebrovascular and cardiovascular disease. Jul, retirement (current) use of insulin (ICD-10 - Z79.4) Jul, Kidney transplant status (ICD-10 - Z94.0) Monthly labs, ongoing surveillance from transplant clinic [employer] Other 05-15-2023 Progress note Author Sadia Aguilar [facility] June 29, 2022 2:47pm Note Date/Time June 29, 2022 2:46p m [facility] [address] [place] [address] Wound Center Provider Note Signed Patient: Alex Almonte MR#: [id number] : 1945 Acct:[id number] Age/Sex: 76 / M Copies to: DO Sadia Whyte APRN~ HPI Date of Visit Date of Visit: Date of Service: 06/29/2022 Time of Service: 14:45 Narrative HPI: 12/30/21 Alex is a 76 year old male presenting to [facility] wound care for aninitial visit for eval and treatment of a sacral/coccyx area pressure ulcer. He resides at [facility] There is an ELECTRONICS ASSEMBLER present for the visit. Medicalhoney gel will [...] his brief that was cleaned by this show card writer as well as another nursing staff [...] from initial visit here Mode of Arrival/ Hunter Skin Diver: Facility vehicle Assistive Device Used Today: Wheelchair and Indra Lives with:: Care/Nursing Facility Appetite Description: Within Normal Limits Who helps w/ dressing change?: Nursing Facility Why Do You Need Help?: Can't Reach Ulcer, Limited mobility and Taxing effort to leave home Smoking Status: Former smoker [facility] Medical History (Updated 03/03/22 @ [...] Ulcer/Injury Staging: Unstageable Bed Appearance: Beefy Red, [place], Yellow and Rolled Edges Percent of Wound [...] By: <Electronically signed by DAVID Aguilar> 06/29/[address] [facility] Work Phone: 1(128) 911-157705-11-2023 Evaluation note* Encounter Date Diagnosis Assessment Notes [...] are maintaining regular scheduled appts with their well logging captain. No bleeding complications June, Hyperlipidemia LDL goal <100 (ICD-10 - E78.5) Instructed on diet and exercise with continued statin therapy.Discussed the beneficial effects of lowering cholesterol in reducing the risk for cerebrovascular and cardiovascular disease. 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) June, Kidney transplant status (ICD-10 - Z94.0) No s/s rejection [employer] Other 04-24-2023 Progress note Author Sadia Aguilar [facility] June 08, 2022 2:10pm Note Date/Time June 08, 2022 2:1 0pm [facility] [address] [place] [address] Wound Center Provider Note Signed Patient: Alex Almonte MR#: [id number] : 1945 Acct:[id number] Age/Sex: 76 / M Copies to: DO Sadia Whyte APRN~ HPI Date of Visit Date of Visit: Date of Service: 06/08/2022 Time of Service: 14:07 Narrative HPI: 12/30/21 Alex is a 76 year old male presenting to [facility] wound care for aninitial visit for eval and treatment of a sacral/coccyx area pressure ulcer. He resides at [facility] There is an ELECTRONICS ASSEMBLER present for the visit. Medicalhoney gel will [...] his brief that was cleaned by this show card writer as well as another nursing staff [...] from initial visit here Mode of Arrival/ Hunter Skin Diver: Facility vehicle Assistive Device Used Today: Wheelchair and Indra Lives with:: Care/Nursing Facility Appetite Description: Within Normal Limits Who helps w/ dressing change?: Nursing Facility Why Do You Need Help?: Can't Reach Ulcer, Limited mobility and Taxing effort to leave home Smoking Status: Former smoker [facility] Medical History (Updated 03/03/22 @ [...] Ulcer/Injury Staging: Unstageable Bed Appearance: Beefy Red, [place], Yellow and Rolled Edges Percent of Wound [...] <Electronically signed by DAVID Aguilar> 06/08/[address] [facility] Work Phone: 1(695) 983-638904-21-2023 Evaluation note* Encounter Date Diagnosis Assessment Notes [...] are maintaining regular scheduled appts with their well logging captain. 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 No open ulcerations present Pain controlled [employer] Other 03-27-2023 Progress note Author Sadia Aguilar [facility] May 11, 2022 1:41pm Note Date/Time May 11, 2022 1:4 0pm [facility] [address] [place] [address] Wound Center Provider Note Signed Patient: Alex Almonte MR#: [id number] : 1945 Acct:[id number] Age/Sex: 76 / M Copies to: DO Sadia Whyte APRN~ HPI Date of Visit Date of Visit: Date of Service: 05/11/2022 Time of Service: 13:38 Narrative HPI: 12/30/21 Alex is a 76 year old male presenting to [facility] wound care for aninitial visit for eval and treatment of a sacral/coccyx area pressure ulcer. He resides at [facility] There is an ELECTRONICS ASSEMBLER present for the visit. Medicalhoney gel will [...] his brief that was cleaned by this show card writer as well as another nursing staff [...] from initial visit here Mode of Arrival/ Hunter Skin Diver: Facility vehicle Assistive Device Used Today: Wheelchair and Indra Lives with:: Care/Nursing Facility Appetite Description: Within Normal Limits Who helps w/ dressing change?: Nursing Facility Why Do You Need Help?: Can't Reach Ulcer, Limited mobility and Taxing effort to leave home Smoking Status: Former smoker [facility] Medical History (Updated 03/03/22 @ [...] Ulcer/Injury Staging: Unstageable Bed Appearance: Beefy Red, [place] and Yellow Percent of Wound Bed Granulated/Red: [...] <Electronically signed by DAVID Aguilar> 05/11/22 [address] [facility] Work Phone: 1(924) 963-693703-23-2023 Evaluation note* Encounter Date Diagnosis Assessment Notes [...] are maintaining regular scheduled appts with their well logging captain. 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 Author Type: Physician Type: Progress Notes Filed: 04/24/2022 10:32 AM Note Text: Encounter opened in error, patient not seen.[facility]02-28-2023 Progress note Author Sadia Aguilar [facility] April 14, 2022 2:19pm Note Date/Time April 14, 2022 2:18pm [facility] [address] [place] [address] Wound Center Provider Note Signed Patient: Alex Almonte MR#: [id number] : 1945 Acct:[id number] Age/Sex: 76 / M Copies to: DO Sadia Whyte APRN~ HPI Date of Visit Date of Visit: Date of Service: 04/14/2022 Time of Service: 14:18 Narrative HPI: 12/30/21 Alex is a 76 year old male presenting to [facility] wound care for aninitial visit for eval and treatment of a sacral/coccyx area pressure ulcer. He resides at [facility] There is an ELECTRONICS ASSEMBLER present for the visit. Medicalhoney gel will [...] his brief that was cleaned by this show card writer as well as another nursing staff [...] from initial visit here Mode of Arrival/ Hunter Skin Diver: Facility vehicle Assistive Device Used Today: Wheelchair and Indra Lives with:: Care/Nursing Facility Appetite Description: Within Normal Limits Who helps w/ dressing change?: Nursing Facility Why Do You Need Help?: Can't Reach Ulcer, Limited mobility and Taxing effort to leave home Smoking Status: Former smoker [facility] Medical History (Updated 03/03/22 @ [...] Ulcer/Injury Staging: Unstageable Bed Appearance: Beefy Red, [place] and Yellow Percent of Wound Bed Granulated/Red: [...] DAVID Aguilar> 04/14/[address] [facility] Work Phone: [phone]) 671-865502-16-2023 NotePatient Outreach (KIMBERLY) ALEX ALMONTE ([id number]) 1945 M TRN Date Time Provider Department 04/02/22 VAN OLIVAREZ During your visit today, we recorded the following information about you: Allergies As of Date: 04/02/2022 Noted Allergy Reaction PYRIDOSTIGMINE BROMIDE 08/04/2021 8 - GI Upset Date Reviewed: 02/26/2022 Reviewed by: Braden Abel MA - Fully Assessed Visit Diagnosis:Screening for genitourinary condition [Z13.89] Order(s):URINALYSIS, REFLEX MICROSCOPIC [[id number]] Order #: [id number] Prescriptions as of 04/06/2022 - tacrolimus IR [...] by mouth daily with lunch. 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 DIABETES UNCOMPL ADULT-UNCONTRLLED [[id number]] 02/24/2002 KIDNEY TRANSPLANT STATUS [Z94.0] 09/07/2003 PROPHYLACTIC IMMUNOTHERAPY [Z29.8] 07/30/2006 FRUIT CANNER STEROIDS [[id number]] 07/30/2006 VITAMIN D DEFICIENCY NOS [E55.9] 09/07/2008 MIXED HYPERLIPIDEMIA [E78.2] 09/07/2008 SUMMARY 01/04/2015 ILIANA (acute kidney injury) ([facility]) [N17.9] 01/04/2015 Diabetes mellitus (HCC) [E11.9] 01/04/2015 Cellulitis [L03.90] 01/04/2015 Diarrhea [R19.7] 01/04/2015 VTE (venous thromboembolism) [I82.90] 09/24/2021 CAD (coronary artery disease) [I25.10] 2016 Paroxysmal atrial fibrillation (HCC) [I48.0] HTN (hypertension) [I10] SA node dysfunction (HCC) [I49.5] Altered tissue perfusion [R09.89] 09/30/2021 PAD (peripheral artery disease) ([facility]) [I73.9] 09/26/2021 Osteomyelitis ([facility]) [M86.9] 11/29/2021 Class 1 obesity due to excess calories with ser*11/29/2021 Mixed hyperlipidemia due to type 2 diabetes myles*11/29/2021 Type 2 diabetes mellitus with diabetic peripher*11/29/2021 Atherosclerosis of napaimute artery of extremity w*11/29/2021 Malnutrition of moderate degree ([facility]) [E44.0] 12/01/2021 Dermatitis associated with moisture [L30.8] 12/04/2021 Encounter Status:Closed by CONCETTA HOBBS on 04/06/22[facility] 03-30-2022 Miscellaneous Notes* Telephone Encounter - Van [...] to pharmacy. Katina Duque documented in this encounterMer[facility] Progress note Author Sadia Aguilar [facility] March 24, 2022 3:00pm Note Date/Time March 24, 2022 2 :59pm [facility] [address] [place] [address] Wound Center Provider Note Signed Patient: Alex Almonte MR#: [id number] : 1945 Acct:[id number] Age/Sex: 76 / M Copies to: DO Sadia Whyte APRN~ HPI Date of Visit Date of Visit: Date of Service: 03/24/2022 Time of Service: 14:58 Narrative HPI: 12/30/21 Alex is a 76 year old male presenting to [facility] wound care for aninitial visit for eval and treatment of a sacral/coccyx area pressure ulcer. He resides at [facility] There is an ELECTRONICS ASSEMBLER present for the visit. Medicalhoney gel will [...] his brief that was cleaned by this show card writer as well as another nursing staff [...] from initial visit here Mode of Arrival/ Hunter Skin Diver: Facility vehicle Assistive Device Used Today: Wheelchair and Indra Lives with:: Care/Nursing Facility Appetite Description: Within Normal Limits Who helps w/ dressing change?: Nursing Facility Why Do You Need Help?: Can't Reach Ulcer, Limited mobility and Taxing effort to leave home Smoking Status: Former smoker [facility] Medical History (Updated 03/03/22 @ [...] Ulcer/Injury Staging: Unstageable Bed Appearance: Beefy Red, [place] and Yellow Percent of Wound Bed Granulated/Red: [...] <Electronically signed by DAVID Aguilar> 03/24/22 [address] [facility] Work Phone: 1(778) 596-147501-17-2023 Progress note Author Sadia Aguilar [facility] March 03, 2022 2:41pm Note Date/Time March 03, 2022 2 :41pm [facility] [address] [place] [address] Wound Center Provider Note Signed Patient: Alex Almonte MR#: [id number] : 1945 Acct:[id number] Age/Sex: 76 / M Copies to: DO Sadia Whyte APRN~ HPI Date of Visit Date of Visit: Date of Service: 03/03/2022 Time of Service: 14:38 Narrative HPI: 12/30/21 Alex is a 76 year old male presenting to [facility] wound care for aninitial visit for eval and treatment of a sacral/coccyx area pressure ulcer. He resides at [facility] There is an ELECTRONICS ASSEMBLER present for the visit. Medicalhoney gel will [...] his brief that was cleaned by this show card writer as well as another nursing staff [...] from initial visit here Mode of Arrival/ Hunter Skin Diver: Facility vehicle Assistive Device Used Today: Wheelchair and Indra Lives with:: Care/Nursing Facility Appetite Description: Within Normal Limits Who helps w/ dressing change?: Nursing Facility Why Do You Need Help?: Can't Reach Ulcer, Limited mobility and Taxing effort to leave home Smoking Status: Former smoker [facility] Medical History (Updated 03/03/22 @ [...] Ulcer Pressure Ulcer/Injury Staging: Unstageable Bed Appearance: [place] and Yellow Percent of Wound Bed Granulated/Red: 90 Percent of Devitalized: 10 Length (cm): 2.2 Width (cm): 1.8 Depth (cm): 1.9 CM Sq: 3.960 Surrounding Tissue Appearance: [place], Hyperpigmented and Satellite lesions Surrounding Tissue Temp: [...] <Electronically signed by DAVID Aguilar> 03/03/[address] [facility] Work Phone: 1([phone]) 471-466601-13-2023 Miscellaneous Notes* Telephone Encounter - RAUL Davidson - 02/27/2022 10:24 AM EST Patient phones requesting refills as follows: Per pts sister takes 1 mg in AM and 1 mg in PM Requested Prescriptions Pending Prescriptions Disp Refills tacrolimus IR (PROGRAF) 1 mg capsule Sig: Take 2 capsules by mouth DAILY (6 AM). Please review and advise. RAUL Davidson documented in this encounterMercy [facility]01-12-2023 NoteHNO ID: [id number] Author: Hina Peterson MD Service: ? Author Type: Physician Type: Progress Notes Filed: 02/26/2022 4:31 PM Note Text: [facility] V[facility] Thoracic Circle DEPARTMENT OF VASCULAR SURGERY OUTPATIENT VISIT DATE [...] long-term current use of insulin ([facility]) 02/24/2002 PAST SURGICAL HISTORY Procedure Laterality [...] by mouth daily with lunch. Magic Cup Madelia with lunch aspirin, enteric coated (ASPIRIN, ENTERIC COATED) 81 mg EC tablet Take 1 tablet by mouth once daily. predniSONE (DELTASONE) 5 mg tablet TAKE 1 TABLET BY MOUTH EVERY DAY oxyCODONE IR (ROXICODONE) 5 mg immediate release tablet 1-2 tablets by ORAL/FEEDING TUBE route every 3 hours as needed. Food Supplement, Lactose-Free (ENSURE MAX (more content not included)... [facility]01-12-2023 History of Present illness Narrative* Hina Peterson MD - 02/26/2022 4:25 PM EST Images from the original note were not included. [facility] DEPARTMENT OF VASCULAR SURGERY OUTPATIENT VISIT DATE [...] maxwell and sutures were removed at the [facility] facility. He comes here with a lateral wound eschar. He denies any fevers, chills, or any drainage. He is on anticoagulation. 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 Patient on mycophenolate mofetil ,cellcept and prednisone Mixed hyperlipidemia due to type 2 diabetes mellitus ([facility]) 11/29/2021 Osteomyelitis ([facility]) 11/29/2021 Paroxysmal atrial fibrillation ([facility]) Renal transplant, status post SA node dysfunction ([facility]) s/p pacemaker Type 2 diabetes mellitus with diabetic neuropathy, with long-term current use of insulin ([facility]) 02/24/2002 PAST SURGICAL HISTORY Procedure Laterality [...] by mouth daily with lunch. Magic Cup Madelia with lunch aspirin, enteric coated (ASPIRIN, ENTERIC [...] SIGNATURE: Hina Peterson MD, MD PATIENT NAME: Alxe Almonte DATE: February 26, 2022 TIME: 4:26 PM documented in this encounterMercy Health [facility]01-05-2023 Miscellaneous Notes* Telephone Encounter - Gwen [...] Home and cell number(Ask for Alex's nurse) [phone] Diagnosis 4 mo f/u wound check Yumiko Mcclain documented in this encounterMercy Health – [facility]01-05-2023 Miscellaneous Notes* Telephone Encounter - Augusta Medrano RN - 02/19/2022 11:11 AM EST Alex Almonte's nursing facility, [facility], called regarding elevated tacrolimus level (23.9). Spoke with bedside nurse, Zoe, today. Level is from last week- unable to clearly determine if medications were held prior to lab work. Reviewed with nurse morning labs should occur prior to lab draws. Patient is scheduled for repeat labs tomorrow. Will assess new level. Augusta Medrano RN documented in this encounterMercy Health [facility]01-04-2023 Miscellaneous Notes* Telephone Encounter - Martina [...] advise. Mercedez Tavares MA documented in this encounterMercy Health [facility]12-27-2022 Progress note Author Sadia Aguilar [facility] February 10, 2022 3:47pm Note Date/Time February 10, 2022 3:47pm [facility] [address] [place] [address] Wound Center Provider Note Signed Patient: Alex Almonte MR#: [id number] : 1945 Acct:[id number] Age/Sex: 76 / M Copies to: DO Sadia Whyte, DAVID~ HPI Date of Visit Date of Visit: Date of Service: 02/10/2022 Time of Service: 15:44 Narrative HPI: 12/30/21 Alex is a 76 year old male presenting to [facility] wound care for aninitial visit for eval and treatment of a sacral/coccyx area pressure ulcer. He resides at [facility] There is an ELECTRONICS ASSEMBLER present for the visit. Medicalhoney gel will [...] his brief that was cleaned by this show card writer as well as another nursing staff member, few weeks to follow up Subjective Pain Coccyx: Pain Description: Intermittent Pain Intensity: 0 Wound/Ulcer History When did wound start?: 4 weeks ago- from initial visit here Mode of Arrival/ Hunter Skin Diver: Facility vehicle Assistive Device Used Today: Wheelchair and Indra Lives with:: Care/Nursing Facility Appetite Description: Within Normal Limits Who helps w/ dressing change?: Nursing Facility Why Do You Need Help?: Can't Reach Ulcer, Limited mobility and Taxing effort to leave home Smoking Status: Former smoker [facility] Medical History (Updated 01/20/22 @ [...] Ulcer Pressure Ulcer/Injury Staging: Unstageable Bed Appearance: [place] and Yellow Percent of Wound Bed Granulated/Red: 90 Percent of Devitalized: 10 Length (cm): 2.5 Width (cm): 2.3 Depth (cm): 2.1 CM Sq: 5.750 Surrounding Tissue Appearance: [place], Hyperpigmented and Satellite lesions Surrounding Tissue Temp: [...] <Electronically signed by DAVID Aguilar> 02/10/22 [address] [facility] Work Phone: 1(167) 945-459912-22-2022 NoteHNO ID: [id number] Author: Asia Pike MD Service: ? Author Type: Physician Type: Progress Notes Filed: 02/05/2022 9:38 AM Note Text: [facility] Urologic and Kidney Circle Transplant Follow up Portions of this note [...] snacks patient declined. Indra scale at [facility]: 166.2 lbs per patient. Bed sore on coccyx causing discomfort. Being changed regularly at SNF- reported to be smaller around but still as deep. Patient not very up to date with medications. Patient brought paperwork from [employer] with all medications being received. Patient unsure if they have been drawing labs regularly. Last Tac from 01/19: 12.9 and K 5.9. In need of current labs. Lab orders will be sent with patient and follows as below: Kidney and Pancreas Transplant Standing Lab Orders [address] [place], [place] [address] February 05, 2022 Alex Almonte 1945 [id number] STANDARD TESTING: Diagnosis Codes: Z94.0 Kidney Transplant [...] AT YOUR LABORATORY FACILITY AND FAX TO [phone]. PLEASE CALL [phone]. Provider: Dr. Pike Current Outpatient Medications Medication [...] by mouth daily with lunch. Magic Cup Madelia with lunch aspirin, enteric coated (ASPIRIN, ENTERIC COATED) 81 mg EC tablet Take 1 tablet by mouth once daily. atorvastatin (LIPITOR) 40 mg tablet 1 tablet by ORAL/FEEDING TUBE route daily at bedtime. (more content not included)...[facility]12-22-2022 History of Present illness Narrative* Asia Pike MD - 02/05/2022 8:20 AM EST Images from the original note were not included. [facility] Urologic and Kidney Circle Transplant Follow up Portions of this note [...] snacks patient declined. Indra scale at [facility]: 166.2 lbs per patient. Bed sore on coccyx causing discomfort. Being changed regularly at SNF- reported to be smaller around but still as deep. Patient not very up to date with medications. Patient brought paperwork from [employer] with all medications being received. Patient unsure if they have been drawing labs regularly. Last Tac from 01/19: 12.9 and K 5.9. In need of current labs. Lab orders will be sent with patient and follows as below: Kidney and Pancreas Transplant Standing Lab Orders [address] [facility] [address] [place], [place] [address] February 05, 2022 Alex Almonte 1945 [id number] STANDARD TESTING: Diagnosis Codes: Z94.0 Kidney Transplant [...] AT YOUR LABORATORY FACILITY AND FAX TO [phone]. PLEASE CALL [phone]. Provider: Dr. Pike Current Outpatient Medications Medication [...] by mouth daily with lunch. Magic Cup Madelia with lunch aspirin, enteric coated (ASPIRIN, ENTERIC [...] All other system reviews negative. Augusta Medrano steeler: February 05, 2022 9:34 AM I have [...] complexity. Asia Pike MD documented in this encounterMercy Health [facility]12-06-2022 Progress note Author Sadia Aguilar [facility] January 20, 2022 2:21pm Note Date/Time January 20, 2022 2 :21pm [facility] [address] [place] [address] Wound Center Provider Note Signed Patient: Alex Almonte MR#: [id number] : 1945 Acct:[id number] Age/Sex: 76 / M Copies to: Devon Moreira,DO Sadia Aguilar APRN~ HPI Date of Visit Date of Visit: Date of Service: 01/20/2022 Time of Service: 14:17 Narrative HPI: 12/30/21 Alex is a 76 year old male presenting to [facility] wound care for aninitial visit for eval and treatment of a sacral/coccyx area pressure ulcer. He resides at [facility] There is an ELECTRONICS ASSEMBLER present for the visit. Medicalhoney gel will [...] from initial visit here Mode of Arrival/ Hunter Skin Diver: Facility vehicle Assistive Device Used Today: Wheelchair [...] Ulcer Pressure Ulcer/Injury Staging: Unstageable Bed Appearance: [place] and Yellow Percent of Wound Bed Granulated/Red: 40 Percent of Devitalized: 60 Length (cm): 5.2 Width (cm): 3.4 Depth (cm): 1.8 CM Sq: 17.680 Surrounding Tissue Appearance: [place] and Hyperpigmented Surrounding Tissue Temp: Warm Drainage [...] DAVID Aguilar> 01/20/[address] [facility] Work Phone: 1(342) 359-677312-06-2022 Miscellaneous Notes* Telephone Encounter - Van Olivarez APRN.CNP - 01/20/2022 1:12 PM EST Labs noted from yesterday. Pt is currently residing at [facility], I spoke with the Nurse, the results has been addressed by Physician caring for pt. He had been placed on Chlor Con and this has been discontinued and hyperkalemia has been treated. Van Olivarez APRN.DIAMANTE documented in this encounterMercy [facility]11-28-2022 Surgical operation note* Brief Op Note - Misbah Landis PA-C - 01/12/2022 10:41 AM EST BRIEF OPERATIVE / PROCEDURE NOTE LOG ID: [id number] SURGERY/PROCEDURE DATE: 01/12/2022 INCISION/PROCEDURE START TIME: 10:32 AM INCISION CLOSE/PROCEDURE END TIME: 10:35 AM SURGEON(S)/PROCEDURALIST(S) AND BUTT SAWYER(S): Misbah Landis PA-C SURGERY/PROCEDURE(S): Removal tunneled vascular access catheter under local anesthesia ANESTHESIA: Procedural Sedation FINDINGS: Catheter removed intact ESTIMATED BLOOD LOSS: 0 ml SPECIMENS: None COMPLICATIONS: None PRE-OP/PRE-PROCEDURE DIAGNOSIS: Foot Ulcer POST-OP/POST-PROCEDURE DIAGNOSIS: Same as Preop SIGNATURE: Misbah Landis PA-C PATIENT NAME: Alex Almonte DATE: January 12, 2022 TIME: 10:42 AM documented in this encounterMercy Health – [facility]11-22-2022 Nurse Note* Laxmi Archibald RN - 01/06/2022 1:55 PM EST Pre-procedure instructions: Contacted patient's sister, Munira Brothers and nurse at [facility], Jada ([phone]) andconfirmed appt. for Gerhard removal scheduled on 01/12/22, at [facility] If instructions are not followed your procedure [...] signed. Arrival at 9:30am to desk B-1 ([facility]) and check in for your procedure. Well Logging Captain/Transportation: How will you be arriving for your procedure? Ambulance service. To be arranged by [facility]. If you develop any of the following symptoms before your procedure, please call [phone]. Chills, joint pain, rash, sore throat, cough, loss of smell, reddened eyes, vomiting, abdominal pains, diarrhea, loss of taste, severe headache, weakness, bruising or bleeding, fever, muscle pain, shortness of breath Recovery expectations: You can expect to be in recovery for 30 minutes following the procedure. Written instructions provided to patient via [employer] If you have any questions please call [phone] documented in this encounterMercy Health – [facility] Hospital11-15-2022 Progress note Author Sadia Aguilar [facility] December 30, 2021 1:49pm Note Date/Time December 30, 2021 1:49pm [facility] [address] [place] [address] Wound Center Provider Note Signed Patient: Alex Almonte MR#: [id number] : 1945 Acct:[id number] Age/Sex: 76 / M Copies to: DO Sadia Whyte APRN~ HPI Date of Visit Date of Visit: Date of Service: 12/30/2021 Time of Service: 13:44 Narrative HPI: 12/30/21 Alex is a 76 year old male presenting to [facility] wound care for aninitial visit for eval and treatment of a sacral/coccyx area pressure ulcer. He resides at [facility] There is an ELECTRONICS ASSEMBLER present for the visit. Medicalhoney gel will [...] start?: 4 weeks ago Mode of Arrival/ Hunter Skin Diver: Facility vehicle Assistive Device Used Today: Wheelchair and Indra Lives with:: Care/Nursing Facility Appetite Description: Within Normal Limits Who helps w/ dressing change?: Nursing Facility Why Do You Need Help?: Can't Reach Ulcer, Limited mobility and Taxing effort to leave home Smoking Status: Former smoker [facility] Medical History (Updated 12/30/21 @ [...] 0.1 CM Sq: 38.500 Surrounding Tissue Appearance: [place] and Hyperpigmented Surrounding Tissue Temp: Warm Drainage [...] <Electronically signed by DAVID Aguilar> 12/30/21 1349 [facility] Work Phone: 1(498) 144-240911-15-2022 History of Present illness Narrative* Paresh Fonseca [...] rehab facility He is currently at [facility] in [facility] Seen on video together with Zoe [...] local wound care following this at [facility] WBC 6.0, creatinine -- 0.8. [...] by mouth daily with lunch. Magic Cup Madelia with lunch aspirin, enteric coated (ASPIRIN, ENTERIC [...] is a 76 year old male from [facility]. 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 History of PAD CAD status post CABG, diabetes, atrial fibrillatioN He originally presented [facility] for having altered mental status [...] 3. Status post right heel I&D at [facility] on 11/24/2021. 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 4. CKD - s/p gerhard placement 5. immunocompromised Status post right open above the ankle [id number]/17 - Enterobacter and MRSA from cultures Gram-positive [...] will need to coordinate with his SNF [phone] --our ID office will need to arrange for IR gerhard removal. Return to ID as needed 10 Minutes spent via virtual visit. SIGNATURE: Paresh Fonseca MD PATIENT NAME: Alex Almonte DATE: December 30, 2021 TIME: 9:52 AM documented in this encounterMercy Health [facility] Hospital11-01-2022 Miscellaneous Notes* Telephone Encounter - Sulma Pardo - 12/16/2021 3:13 PM EDT Pt home therapy clinician is requesting orders for Stomp ampushield to be taken off pressure relief because it is causing sores on the thigh. Thanks, Sulma Pardo Yarding And Folding Machine Operator documented in this encounterMercy Health – The Jewish Hospital10-31-2022 Miscellaneous Notes* Telephone Encounter - Gwen Alfredo Adm Asst I - 12/15/2021 4:11 PM EDT Rupa LYLES from [facility] [phone] called to report IV Vancomycin was started until today. Patient missed 3 days, should patient makeup missed doses? Please advise. Gwen Alfredo Adm Asst I documented in this encounterMercy Health – The Jewish Hospital10-21-2022 Instructions* Patient Instructions* Paresh Fonseca MD [...] serious illness Are taking any medications (prescription, ptko-ngx-vdwkxuo, vitamins, or herbal products) How will I receive EVUSHELD? EVUSHELD consists of two investigational medicines, tixagevimab and cilgavimab. You will receive 1 dose of EVUSHELD, consisting of 2 separate injections (tixagevimab and cilgavimab). EVUSHELD will be given to you by your healthcare provider as 2 intramuscular injections, given one after the other. Viruses can place change roof bolter time (mutate) and develop into a slightly [...] caused by certain SARS-CoV-2 variants: [address] place change roof bolter time (mutate) and develop into a slightly [...] treatment or prevention of COVID-19 go to https://www.fda.gov/ggyapmaup-ndtgjkxmdyoc-axz- response/uvu-qzgmc-ejcdvmtcqd-pyi-wcpdhp-rbcwqchih/ktiwdeyow-urg-yhkfeuiiawchs for more information. It is your choice [...] to FDA MedWatch at www.fda.gov/medwatch or call 2-761-KJI-3177 or call [employer] . Additional Information If you have questions, visit the website or call the telephone number provided below. Website Telephone number [email or web address] How can I learn more about COVID-19? Ask your healthcare provider. Visit https://www.cdc.gov/COVID19 Contact your local or state public health department. What is an Emergency Use Authorization? The [place] FDA has made EVUSHELD (tixagevimab co-packaged with cilgavimab) available under an emergency access mechanism called an Emergency Use Authorization EUA. The EUA is supported by a Public Health Nurse of Health and Human Service ([facility]) declaration that circumstances exist to justify the [...] monohydrate, polysorbate 80, sucrose, water. Distributed by: [employer], [place], [place] Manufactured for: [employer], [place], [place] [employer] 2021. All rightsreserved. documented in this encounterMercy Health – The Jewish Hospital10-21-2022 Miscellaneous Notes* Telephone Encounter - Paresh Fonseca MD - 12/05/2021 3:05 PM EDT Evusheld (tixagevimab/cilgavimab) Eligibility and Patient Discussion The patient agrees to receive Evusheld (tixagevimab 300 mg and cilgavimab 300 mg) at [place]. The patient verbalized understanding of repeating a COVID test 72 hours prior to the injections. called up patient in response to her mychart message today she tested covid negative on a rapid test on Wednesday this week Discussed evushed fact sheet and she agrees to proceed she will retest again today to be scheduled for Friday 12/08 at [facility] Paresh Fonseca MD documented in this encounterMercy Health – The Jewish Hospital10-03-2022 Instructions* Patient Instructions* No Reeder DO - 11/17/2021 4:26 PM EDT -- continue coumadin -- will get vascular ultrasound for vein and artery of your right leg -- will have you see my interventional cardiology partner regarding your peripheral artery disease and if your artery disease is impairing your wound healing for the leg ulcer documented in this encounterMercy Health – The Jewish Hospital10-03-2022 History of Present illness Narrative* No Reeder DO - 11/17/2021 3:53 PM EDT Images from the original note were not included. [facility] Department of Cardiovascular Medicine SECTION [...] DVT scan. Leg elevation. No Reeder DO, [facility] Vascular Medicine documented in this encounterMercy Health – The Jewish Hospital08-16-2022 History of Past illness Narrative* Problem Noted Date Resolved Date Altered tissue perfusion 022 documented as of this encounter (statuses as of 09/30/2021) [address]16-2022 History of Past illness Narrative* Problem Noted Date Resolved Date Altered tissue perfusion 16/2 022 documented as of this encounter (statuses as of 10/09/2021) [address]16-2022 History of Past illness Narrative* Problem Noted Date Resolved Date Altered tissue perfusion 16/2 022 documented as of this encounter (statuses as of 11/18/2021) [address]16-2022 History of Past illness Narrative* Problem Noted Date Resolved Date Altered tissue perfusion 09/30/2 022 documented as of this encounter (statuses as of 12/01/2021) [address]16-2022 History of Past illness Narrative* Problem Noted Date Resolved Date Altered tissue perfusion 2 022 documented as of this encounter (statuses as of 12/05/2021) [address]16-2022 History of Past illness Narrative* Problem Noted Date Resolved Date Altered tissue perfusion 2 022 documented as of this encounter (statuses as of 12/08/2021) [address]16-2022 History of Past illness Narrative* Problem Noted Date Resolved Date Altered tissue perfusion 09/30/2 022 documented as of this encounter (statuses as of 12/08/2021) [address]16-2022 History of Past illness Narrative* Problem Noted Date Resolved Date Altered tissue perfusion 16/2 022 documented as of this encounter (statuses as of 12/12/2021) [address]16-2022 History of Past illness Narrative* Problem Noted Date Resolved Date Altered tissue perfusion 16/2 022 documented as of this encounter (statuses as of 12/15/2021) [address]16-2022 History of Past illness Narrative* Problem Noted Date Resolved Date Altered tissue perfusion 16/2 022 documented as of this encounter (statuses as of 12/16/2021) [address]16-2022 History of Past illness Narrative* Problem Noted Date Resolved Date Altered tissue perfusion 16/2 022 documented as of this encounter (statuses as of 12/31/2021) [address]16-2022 History of Past illness Narrative* Problem Noted Date Resolved Date Altered tissue perfusion 16/2 022 documented as of this encounter (statuses as of 01/13/2022) [address]16-2022 History of Past illness Narrative* Problem Noted Date Resolved Date Altered tissue perfusion 09/30/2 022 documented as of this encounter (statuses as of 01/20/2022) [address]16-2022 History of Past illness Narrative* Problem Noted Date Resolved Date Altered tissue perfusion 09/30/2 022 documented as of this encounter (statuses as of 02/06/2022) [address]16-2022 History of Past illness Narrative* Problem Noted Date Resolved Date Altered tissue perfusion 09/30/2 022 documented as of this encounter (statuses as of 02/20/2022) [address]16-2022 History of Past illness Narrative* Problem Noted Date Resolved Date Altered tissue perfusion 2 022 documented as of this encounter (statuses as of 02/26/2022) [address]16-2022 History of Past illness Narrative* Problem Noted Date Resolved Date Altered tissue perfusion 2 022 documented as of this encounter (statuses as of 02/27/2022) [address]16-2022 History of Past illness Narrative* Problem Noted Date Resolved Date Altered tissue perfusion 2 022 documented as of this encounter (statuses as of 03/21/2022) [address]16-2022 History of Past illness Narrative* Problem Noted Date Resolved Date Altered tissue perfusion 2 022 documented as of this encounter (statuses as of 03/30/2022) [address]16-2022 History of Past illness Narrative* Problem Noted Date Resolved Date Altered tissue perfusion 2 022 documented as of this encounter (statuses as of 04/06/2022) [address]16-2022 History of Past illness Narrative* Problem Noted Date Resolved Date Altered tissue perfusion 09/30/2 022 documented as of this encounter (statuses as of 05/13/2022) [address]16-2022 History of Past illness Narrative* Problem Noted Date Diagnosed Date Resolved Date Altered tissue perfusion documented as of this encounter (statuses as of 2022) [address]16-2022 History of Past illness Narrative* Problem Noted Date Diagnosed Date Resolved Date Altered tissue perfusion documented as of this encounter (statuses as of 10/29/2022) [facility]08-16-[facility]22 Miscellaneous Notes* Telephone Encounter - Katina [...] to pharmacy. Katina Duque documented in this encounterMercy Health – The Jewish Hospital05-31-2022 Miscellaneous Notes* Telephone Encounter - Van [...] and advise. Rosibel Daniel documented in this encounterMercy Health – The Jewish Hospital04-21-2022 Miscellaneous Notes* Telephone Encounter - Van Olivarez APRN.CNP - 06/05/2021 4:46 PM EDT Spoke with pt regarding latest results, scr. at baseline. TAC level 8.6 prev two levels in 5 range.He believes latest level would be 12hr trough. No changes for now, if next level >7, can consider if reduction appropriate. He understands. Van Olivarez APRN.CNP documented in [facility]Mer[facility]* Diagnosis Screening for genitourinary condition Screening for other and unspecified genitourinary condition documented in this encounter [facility] note* Diagnosis Acute deep vein thrombosis (DVT) of proximal end of right lower extremity ([facility])- Primary PAD (peripheral artery disease) ([facility]) Peripheral vascular disease, unspecified Nonhealing ulcer of heel ([facility]) Anticoagulation management encounter Encounter for therapeutic drug monitoring documented in this encounter [facility] note* Diagnosis Encounter for prophylactic measures, unspecified- Primary [facility] this [facility]* Diagnosis Kidney replaced by transplant- Primary documented in this encounter [facility] note* Diagnosis MRSA bacteremia- Primary Bacteremia Diabetic foot ulcer with osteomyelitis ([facility]) Type II or unspecified type diabetes mellitus with other specified manifestations, not stated as uncontrolled ILIANA (acute kidney injury) ([facility]) Acute kidney failure, unspecified documented in this encounter [facility] note* Diagnosis Kidney replaced by transplant- Primary 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 documented in this encounter [facility]* Diagnosis Hx of BKA, right (HCC)- Primary PAD (peripheral artery disease) ([facility]) Peripheral vascular disease, unspecified Mixed hyperlipidemia due to type 2 diabetes mellitus ([facility]) Type II or unspecified type diabetes mellitus with renal manifestations, uncontrolled(250.42) Type II or unspecified type diabetes mellitus with renal manifestations, uncontrolled Type 2 diabetes mellitus with diabetic neuropathy, with long-term current use of insulin (HCC) Type 2 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, with long-term current use of insulin ([facility]) Paroxysmal atrial fibrillation ([facility]) Atrial fibrillation documented in this encounter [facility]* Diagnosis Screening for genitourinary condition Screening for other and unspecified genitourinary condition documented in this encounter [facility]* Diagnosis Onset Date Resolution Status At high risk for skin breakdown chronic Diabetes chronic Fecal incontinence chronic Limited mobility chronic Poor appetite chronic Pressure ulcer of sacral region, unstageable chronic Candidiasis [facility] Work Phone: Evaluation noteNo InformationNortLifecare Hospital [facility] [employer] Other Evaluation note* Diagnosis Kidney replaced by [...] COLONOSCOPY 1995,2001, 2014 Hospitalization History see above [employer] Other Progress note Author Sadia Aguilar [facility] July 20, 2022 1:48pm Note Date/Time July 20, 2022 1:48p m [facility] [address] [place] [address] Wound Center Provider Note Signed Patient: Alex Almonte MR#: [id number] : 1945 Acct:[id number] Age/Sex: 76 / M Copies to: DO Sadia Whyte, [place] PAINTER~ HPI Date of Visit Date of Visit: Date of Service: 07/20/2022 Time of Service: 13:46 Narrative HPI: 12/30/21 Alex is a 76 year old male presenting to [facility] wound care for aninitial visit for eval and treatment of a sacral/coccyx area pressure ulcer. He resides at [facility] There is an ELECTRONICS ASSEMBLER present for the visit. Medicalhoney gel will [...] his brief that was cleaned by this show card writer as well as another nursing staff [...] from initial visit here Mode of Arrival/ Hunter Skin Diver: Facility vehicle Assistive Device Used Today: Wheelchair and Indra Lives with:: Care/Nursing Facility Appetite Description: Within Normal Limits Who helps w/ dressing change?: Nursing Facility Why Do You Need Help?: Can't Reach Ulcer, Limited mobility and Taxing effort to leave home Smoking Status: Former smoker [facility] Medical History (Updated 03/03/22 @ [...] <Electronically signed by DAVID Aguilar> 07/20/22 134[address] [facility] Work Phone: [facility] for referral (narrative)* Outpatient Procedure (Routine) - Authorized Specialty Diagnoses / Procedures Referred By Contac t Referred To Contact [facility] Diagnoses PAD (peripheral artery disease) (HCC) Nonhealing ulcer of heel (HCC) Procedures US LEG ARTERIAL PERIPH UNL VAS LAB DUP-SCAN LXTR ART/ARTL BPGS UNI/LMTD STUDY No Reeder DO [address] [address] [facility] [place] [place] [address] Referral ID Status Reason Start Date Expiration Date Visits Requested Visits Authorized [id number] Authorized Auto-Generat ed Referral 11/17/2021 11/17/2022 1 1 * Outpatient Procedure (Routine) - Authorized Specialty Diagnoses / Procedures Referred By Contac t Referred To Contact [facility] Diagnoses Acute deep vein thrombosis (DVT) of proximal end of right lower extremity (HCC) Procedures US LEG VEIN DVT UNL VAS LAB DUP-SCAN XTR VEINS UNILATERAL/LIMITED STUDY No Reeder DO [address] [address] Referral ID Status Reason Start Date Expiration Date Visits Requested Visits Authorized [id number] Authorized Auto-Generat ed Referral 11/17/2021 11/17/2022 1 1 * Consult, Test, Treat (Routine) - Authorized Specialty Diagnoses / Procedures Referred By Contac t Referred To Contact Cardiology Diagnoses PAD (peripheral artery disease) (HCC) Nonhealing ulcer of heel (HCC) Procedures CONSULT TO CARDIOLOGY OFFICE/OUTPATIENT [facility] 60-74 MINUTES Savanah Marcelo MD [address] [address] Referral ID Status Reason Start Date Expiration Date Visits Requested Visits Authorized [id number] Authorized PCP Requested Referral 11/17/2021 11/17/2022 1 1 [facility] Summary Purpose Family History Relationship Condition Age at Onset Recorded Date/T kartik father Aneurysm Unknown father Parkinson's disease Unknown Advance Directives Documents on File Type Date Recorded 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 Advance Directive(s) Latest Code Status [...] Maker Relationship: M ajority of Adult Siblings (treasury representative) DNR-CCA 09/26/2021 11:56 AM 10/01/2021 2:18 [...] Decision Maker Relationship: Majority of Adult Siblings (treasury representative) Code Status History Code Status Date [...] Reason for Visit Chief Complaint Open Wound ([facility]) Reason for Visit At high [...] and content) DATE CREATED AUTHOR 02/20/2021 [facility] DATE CREATED AUTHOR AUTHOR'S ORGANIZ ATION 07/25/2022 [facility] DATE CREATED AUTHOR AUTHOR'S ORGANIZ ATION 08/16/2022 [facility] DATE CREATED AUTHOR AUTHOR'S ORGANIZ ATION 09/17/2022 [facility] DATE CREATED AUTHOR AUTHOR'S ORGANIZ ATION 01/14/2023 [facility] DATE CREATED AUTHOR AUTHOR'S ORGANIZ ATION 03/20/2023 [facility] dical Specialists EPIC Source Comments (unrecognize d section and content) In the event this informatio n is protected by the Federal Confidentiality of Alcohol and Drug Abuse Patient Records regulations: The Federal rules restrict any use of the information to criminally investigate or prosecute any alcohol or drug abuse patient.[facility] Hospital[facility] the event this information is protected by the Federal Confidentiality of Alcohol and Drug Abuse Patient Records regulations: The Federal rules restrict any use of the information to criminally investigate or prosecute any alcohol or drug abuse patient.[facility] Hospital[facility] the event this information is protected by the Federal Confidentiality of Alcohol and Drug Abuse Patient Records regulations: The Federal rules restrict any use of the information to criminally investigate or prosecute any alcohol or drug abuse patient.[facility] HospitalIn the event this information is protected by the Federal Confidentiality of Alcohol and Drug Abuse Patient Records regulations: The Federal rules restrict any use of the information to criminally investigate or prosecute any alcohol or drug abuse patient.[facility] HospitalIn the event this information is protected by the Federal Confidentiality of Alcohol and Drug Abuse Patient Records regulations: The Federal rules restrict any use of the information to criminally investigate or prosecute any alcohol or drug abuse patient.[facility]In the event this information is protected by the Federal Confidentiality of Alcohol and Drug Abuse Patient Records regulations: The Federal rules restrict any use of the information to criminally investigate or prosecute any alcohol or drug abuse patient.[facility] HospitalIn the event this information is protected by the Federal Confidentiality of Alcohol and Drug Abuse Patient Records regulations: The Federal rules restrict any use of the information to criminally investigate or prosecute any alcohol or drug abuse patient.[facility] HospitalIn the event this information is protected by the Federal Confidentiality of Alcohol and Drug Abuse Patient Records regulations: The Federal rules restrict any use of the information to criminally investigate or prosecute any alcohol or drug abuse patient.[facility] HospitalIn the event this information is protected by the Federal Confidentiality of Alcohol and Drug Abuse Patient Records regulations: The Federal rules restrict any use of the information to criminally investigate or prosecute any alcohol or drug abuse patient.[facility] HospitalIn the event this information is protected by the Federal Confidentiality of Alcohol and Drug Abuse Patient Records regulations: The Federal rules restrict any use of the information to criminally investigate or prosecute any alcohol or drug abuse patient.[facility] HospitalIn the event this information is protected by the Federal Confidentiality of Alcohol and Drug Abuse Patient Records regulations: The Federal rules restrict any use of the information to criminally investigate or prosecute any alcohol or drug abuse patient.[facility] HospitalIn the event this information is protected by the Federal Confidentiality of Alcohol and Drug Abuse Patient Records regulations: The Federal rules restrict any use of the information to criminally investigate or prosecute any alcohol or drug abuse patient.[facility] HospitalIn the event this information is protected by the Federal Confidentiality of Alcohol and Drug Abuse Patient Records regulations: The Federal rules restrict any use of the information to criminally investigate or prosecute any alcohol or drug abuse patient.[facility] HospitalIn the event this information is protected by the Federal Confidentiality of Alcohol and Drug Abuse Patient Records regulations: The Federal rules restrict any use of the information to criminally investigate or prosecute any alcohol or drug abuse patient.[facility] HospitalIn the event this information is protected by the Federal Confidentiality of Alcohol and Drug Abuse Patient Records regulations: The Federal rules restrict any use of the information to criminally investigate or prosecute any alcohol or drug abuse patient.[facility]In the event this information is protected by the Federal Confidentiality of Alcohol and Drug Abuse Patient Records regulations: The Federal rules restrict any use of the information to criminally investigate or prosecute any alcohol or drug abuse patient.[facility] HospitalIn the event this information is protected by the Federal Confidentiality of Alcohol and Drug Abuse Patient Records regulations: The Federal rules restrict any use of the information to criminally investigate or prosecute any alcohol or drug abuse patient.[facility] HospitalIn the event this information is protected by the Federal Confidentiality of Alcohol and Drug Abuse Patient Records regulations: The Federal rules restrict any use of the information to criminally investigate or prosecute any alcohol or drug abuse patient.[facility] HospitalIn the event this information is protected by the Federal Confidentiality of Alcohol and Drug Abuse Patient Records regulations: The Federal rules restrict any use of the information to criminally investigate or prosecute any alcohol or drug abuse patient.[facility] HospitalIn the event this information is protected by the Federal Confidentiality of Alcohol and Drug Abuse Patient Records regulations: The Federal rules restrict any use of the information to criminally investigate or prosecute any alcohol or drug abuse patient.[facility] HospitalIn the event this information is protected by the Federal Confidentiality of Alcohol and Drug Abuse Patient Records regulations: The Federal rules restrict any use of the information to criminally investigate or prosecute any alcohol or drug abuse patient.[facility] HospitalIn the event this information is protected by the Federal Confidentiality of Alcohol and Drug Abuse Patient Records regulations: The Federal rules restrict any use of the information to criminally investigate or prosecute any alcohol or drug abuse patient.[facility]In the event this information is protected by the Federal Confidentiality of Alcohol and Drug Abuse Patient Records regulations: The Federal rules restrict any use of the information to criminally investigate or prosecute any alcohol or drug abuse patient.[facility] HospitalIn the event this information is protected by the Federal Confidentiality of Alcohol and Drug Abuse Patient Records regulations: The Federal rules restrict any use of the information to criminally investigate or prosecute any alcohol or drug abuse patient.[facility] HospitalIn the event this information is protected by the Federal Confidentiality of Alcohol and Drug Abuse Patient Records regulations: The Federal rules restrict any use of the information to criminally investigate or prosecute any alcohol or drug abuse patient.[facility] HospitalIn the event this information is protected by the Federal Confidentiality of Alcohol and Drug Abuse Patient Records regulations: The Federal rules restrict any use of the information to criminally investigate or prosecute any alcohol or drug abuse patient.[facility] Reason for Visit (unrecogniz ed section [...] Care Teams (unrecognized sec tion and content) Treasury Consultant Relationship Specialty Start Date End Date Devon Moreira, DO [address] [place] [address] PCP - General 05/27/00 Treasury Consultant Relationship Specialty Start Date End Date Devon Moreira, DO [address] [place] [address] PCP - General 05/27/00 Treasury Consultant Relationship Specialty Start Date End Date Devon Moreira, DO [address] [place] [address] PCP - General 05/27/00 Treasury Consultant Relationship Specialty Start Date End Date Devon Moreira, DO [address] [place] [address] PCP - General 05/27/00 Treasury Consultant Relationship Specialty Start Date End Date Devon Moreira, DO [address] [place] [address] PCP - General 05/27/00 Treasury Consultant Relationship Specialty Start Date End Date Devon Moreira, DO [address] [place] [address] PCP - General 05/27/00 Treasury Consultant Relationship Specialty Start Date End Date Devon Moreira, DO [address] [place] [address] PCP - General 05/27/00 Treasury Consultant Relationship Specialty Start Date End Date Devon Moreira, DO [address] [place] [address] PCP - General 05/27/00 Treasury Consultant Relationship Specialty Start Date End Date Devon Moreira, DO [address] [place] [address] PCP - General 05/27/00 Treasury Consultant Relationship Specialty Start Date End Date Devon Moreira, DO [address] [place] [address] PCP - General 05/27/00 Treasury Consultant Relationship Specialty Start Date End Date Devon Moreira, DO [address] [place] [address] PCP - General 05/27/00 Treasury Consultant Relationship Specialty Start Date End Date Devon Moreira, DO [address] [place] [address] PCP - General 05/27/00 Treasury Consultant Relationship Specialty Start Date End Date Devon Moreira, DO [address] [place] [address] PCP - General 05/27/00 Treasury Consultant Relationship Specialty Start Date End Date Devon Moreira, DO [address] [place] [address] PCP - General 05/27/00 Treasury Consultant Relationship Specialty Start Date End Date Devon Moreira, DO [address] [place] [address] PCP - General 05/27/00 Treasury Consultant Relationship Specialty Start Date End Date Devon Moreira, DO [address] [place] [address] PCP - General 05/27/00 Treasury Consultant Relationship Specialty Start Date End Date Devon Moreira, DO [address] [place] [address] PCP - General 05/27/00 Treasury Consultant Relationship Specialty Start Date End Date Devon Moreira, DO [address] [place] [address] PCP - General 05/27/00 Treasury Consultant Relationship Specialty Start Date End Date Devon Moreira, DO [address] [place] [address] PCP - General 05/27/00 Team Status: Active Member Role Status Dates Devon Moreira DO Primary Care Provider Active Team Status: Inactive Member Role Status Dates Devon Moreira DO Primary Care Provider Active Sadia Aguilar APRN Attending Provider Active Treasury Consultant Relationship Specialty Start Date End Date LillieDevonDO [address] [place] [address] PCP - General 05/27/00 Treasury Consultant Relationship Specialty Start Date End Date Lillie Devon RaquelDO [address] [place] [address] PCP - General 05/27/00 Treasury Consultant Relationship Specialty Start Date End Date Ni Cabrera Demetrice, DO [address] [facility] [address] [place] [address] PCP - ACO Reach 07/09/22 Devon Moreira MD [address] [place] [id number] PCP - General Internal Medicine 07/14/22 PRN Active and Recently Administ ered Medications (unrecognized section and content) Medication Order 01/10/2022 01/11/2022 01/12/2022 lidocaine (PF) 10 mg/mL (1 %) injection (XYLOCAINE) SUBCUTANEOUS, X (OR/PROCEDURE) PRN, Starting on Wed01/12/22 at 1032, Until Wed01/13/22 at 0303, Intraprocedure 1032 (Given - Provid er: Vani Hdz APRN.STOCK DRIER TENDER) Goals (unrecognized section and content) Goals may [...] BASED ON THE PRIMARY CLINICAL RECORDS. [facility]. provides no warranty or guarantee of the accuracy or completeness of information in this document.
[2023-04-28 07:17] LABS: Basophils Absolute Auto 0.1 10^3/uL (0.0-0.1); Basophils Percent Auto 0.7 % (0.2-2.0); Eosinophils Absolute Auto 0.3 10^3/uL (0.0-0.7); Eosinophils Percent Auto 4.2 % (0.9-7.0); Hematocrit 30.8 % (42.0-54.0); Hemoglobin 9.6 g/dL (14.0-18.0); Immature Granulocytes Abs Auto 0.02 10^3/uL (0.00-0.03); Immature Granulocytes Pct Auto 0.3 % (0.0-0.5); Lymphocytes Absolute Auto 2.2 10^3/uL (1.2-3.8); Lymphocytes Percent Auto 30.4 % (20.5-60.0); Mean Corpuscular HGB Conc 31.2 g/dL (29.9-35.2); Mean Corpuscular Hemoglobin 27.2 pg (25.9-34.0); Mean Corpuscular Volume 87.3 fL (80.0-94.0); Mean Platelet Volume 10.2 fL (9.5-13.5); Monocytes Absolute Auto 0.9 10^3/uL (0.3-0.8); Monocytes Percent Auto 11.7 % (1.7-12.0); Neutrophils Absolute Auto 3.9 10^3/uL (1.4-6.5); Neutrophils Percent Auto 52.7 % (43.0-75.0); Platelet Count 188 10^3/uL (150-450); Red Blood Count 3.53 10^6/uL (4.70-6.10); Red Cell Distribution Width 16.1 % (11.0-15.0); White Blood Count 7.4 10^3/uL (4.0-11.0)
[2023-04-28 07:34] LABS: INR 2.41; Prothrombin Time 24.3 sec (9.0-11.6)
[2023-04-28 08:15] LABS: Alanine Aminotransferase 16 U/L (16-63); Albumin Globulin Ratio 0.8; Albumin Level 2.5 g/dL (3.4-5.0); Alkaline Phosphatase 65 U/L (46-116); Anion Gap 11.4; Aspartate Amino Transferase 17 U/L (15-37); BUN Creatinine Ratio 29.9; Bilirubin Total 0.6 mg/dL (0.2-1.0); Calcium 7.9 mg/dL (8.5-10.1); Carbon Dioxide 27.6 mmol/L (21.0-32.0); Chloride 106 mmol/L (98-107); Estimated GFR (African America >60 (>=60); Estimated GFR (Non-African Ame 55 (>=60); Globulin 3.2 g/dL; Glucose 87 mg/dL (74-106); Sodium 141 mmol/L (136-145); Total Protein 5.7 g/dL (6.4-8.2)
[2023-05-01 12:11] LABS: Tacrolimus (FK506), Blood 5.9 ng/mL (2.0-20.0)
== END 2023-04-28 01:56 | disposition home or self-care (01) ==
LOC: LAB 01:55
PROVIDERS: PCP Internal Medicine; Visit Provider Internal Medicine
DX: N18.9 Chronic kidney disease, unspecified (principal)
CPT/HCPCS: 36415; 80053; 80197; 85025; 85610

== ENCOUNTER 2023-05-05 02:29 | Outpatient (REF) | payer MEDICARE, OTHER, SELFPAY ==
--- OUTSIDE RECORDS SUMMARY | 2023-05-05 02:34 | XMS_ITS | CCD ---
Author Organization [facility] Care Team Providers Care Seafood Manager Name Role Phone PROVIDER, UNKNOWN Attending Unavailable PROVIDER, UNKNOWN Admitting Unavailable Lillie DO, Devon García Primary Care Provider Ball DO, Devon García Primary Care Provider Ball DO, Devon E Primary Care Provider Ball DO, Devon E Primary Care Provider Ball, Devon Unavailable NABEEL, DR PROSPER Douglas Attending Unavailable NABEEL, DR PROSPER Douglas Admitting Unavailable CASTANO ., DR BRANDI García Consulting Unavailable BALL, DR OSORIO Primary Care Unavailable CYN, DR TONYA Manzo Consulting Unavailabl e ZIEBER, DR CURRY Carmona Consulting Unavailable NADEREMathew, DR PROSPER Douglas Consulting Unavailable GRECHNY ., ALEJA TORRES Consulting Unavailabl e MARKER ., DR WASHINGTON Consulting Unavailable KANCHAN ., MARY ANN Consulting Unavailable BACHRACH, KARTHIK Consulting Unavailable PHOENIX, ASHLEY Cortes Admitting Unavailable HIGHLSRINATH, ASHLEY Cortes Attending Unavailable MARIAELENA, DR RICH [...] BALL, DR OSORIO Admitting Unavailable BALL, DR OSOIRO Primary Care Unavailable BALL, DR OSORIO Attending Unavailable BALL, DR OSORIO Consulting Unavailable BALL, DR OSORIO Admitting Unavailable BALL, DR OSORIO Primary Care Unavailable HOY ., DR CENTENO Attending Unavailable HOY ., DR JACOBO Danielitting Unavailable HOY ., DR CENTENO Consulting Unavailable [...] Primary Care Unavailable WILLIAM BROOKS Attending Unavailable KATFE, WILLIAM Cortes Admitting Unavailable WILLIAM BROOKS Consulting Unavailable RICH TITUS Consulting Unavailable FAWWAD, DIAMOND H Admitting Unavailable FAWWAD, DIAMOND H Attending Unavailable BALL, DR OSORIO Primary Care Unavailable NICOLÁS Cheng, DR CENTENO Consulting Unavailable MARIAELENA, DR RICH Hernandez Consulting Unavailable KRISHNA, DR CURRY Carmona Consulting Unavailable ASHLEY GARIBAY Procedure Practitioner Unava ilable ASHLEY GARIBAY Consulting Unavailable NICOLÁS Cheng, DR CENTENO Procedure Practitioner Unavail able MARCELINO [...] BALL, DR OSORIO Primary Care Unavailable FAWWAD, H Attending Unavailable FAWWAD, DIAMOND H Admitting [...] Unavailable Ball, DO Osorio Primary Care Provider [phone] DAVID Aguilar Attending Provider Sadia Aguilar Attending Unavailable Sadia Aguilar Admitting Unavailable Ball, Devon Primary Care Unavailable SARTHAK PARNELL Attending Unavailable BERNICEMILAGRO Johnson Referring Unavailable BERNICE, MILAGRO Referring Unavailable DEVON MOREIRA Referring Unavailable HINA PETERSON Attending Unavailable DEVON MOREIRA Primary Care Unavailable ARTUR CHEN Referring Unavailable LILLIE, DEVON García Primary Care Unavailable Ni Cabrera DO Unavailable [...] ON FILE] Propensity to adverse reactions (disorder) [facility] Repository (1 source) Pyridostigmine Drug Allergy 2 [...] intramuscular injection (EVUSHELD) (4 sources) Start: 12-06-19 22 End: 01-05-20 22 cilgavimab 300 mg intramuscular injection (EVUSHELD) Continuous Blood Gluc Sensor (FreeStyle Shaan 14 Day Sensor) misc (1 source) Start: 04-06-19 Continuous Blood Gluc Sensor (FreeStyle Shaan 14 Day Sensor) misc Inject 1 each under the skin every 14 (fourteen) days. 0 04/06/2022 Active famotidine 20 mg oral tablet (3 sources) Histamine-2 Receptor Antagonist Start: 06-25-19 23 take 1 tablet by mouth in the [...] Indications: Type 1 diabetes mellitus with nephropathy ([facility]) 3 units breakfast, 5 units [...] 10 units and notify provider K [employer] Taylor 155-852-130 MG (6 sources) take 155-852 tablets by mouth twice daily K [employer]os Taylor-S[employer] Taylor 155-852-130 MG 1 tablet Orally twice daily Active take 155-852 tablets by mouth four times daily take 155-852 tablets by mouth four times daily K Phos Taylor-Sod Phos Di [employer] Taylor 155-852-130 MG 1 tablet Orally Four times [...] P2Y12 Platelet Inhibitor Start: 01-24-20 End: 12-31-19 22 take 75 mg by mouth once daily [...] mg oral tablet (20 sources) Start: 12-12-19 22 take 1 tablet by mouth twice daily [...] by mouth daily with lunch. [employer] [place] with lunch 7110 mL 0 12/11/2021 Active Comment on above: Take 237 mL by mouth daily with lunch. [employer] [place] with lunch polyethylene glycol 3350 79083 mg powder for oral solution (20 sources) [...] TABLET BY DEBI TH DAILY AT BEDTIME. 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] Episodic Other aftercare (13 sources) Long-term current use of insulin; Translations: [detention (current) use of insulin] Episodic Other aftercare (10 sources) detention (current) use of insulin; Translations: [HIDE DYER CURRENT USE OF INSULIN] Onset: 2 Episodic Other aftercare (5 sources) detention (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 of anticoagulants; Translations: [FPC CURRNT USE ANTICOAGULANTS] Onset: 3 Episodic Other [...] 07-30-2006 Episodic Other aftercare (2 sources) Other care home (current) drug therapy; Translations: [OTH HIDE DYER CURRENT DRUG THERAPY] Onset: 02-05-2022 Episodic Other aftercare (4 sources) Encounter for orthopedic aftercare following surgical amputation; Translations: [ENC ORTHOPED AFTERCARE FLW SURG AMP] Onset: 02-05-2022 Episodic Other aftercare (4 sources) 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; Translations: [[facility]PC CURRENT USE ANTIBIOTICS] Onset: 12-20-2021 Episodic Other aftercare (1 source) detention (current) use of aspirin; Translations: [HIDE DYER CURRENT USE OF ASPIRIN] Onset: 01-19-2022 Episodic [...] review of laboratory results Normal [facility] POCT glycosylated hemoglobin (Hb A1C) docked deviceon 03-18-2023 HbA1c (Bld) [Mass fraction] 7.8 % [facility] CNPRosalie 12-25-2022 CNPN Telephone (TXCTGL) ALEX ALMONTE ([id number]) 1945 M Date Time Provider Department 12/25/22 KIDNEY TXP COORDINATORS TXCTGL During your visit today, we recorded the following information about you: Duane Ryan 12/25/2022 10:41 AM Signed Labs 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 Administrative Chronic Manager Allergies As of Date: 12/25/2022 Noted [...] by mouth. Take one (1) tablet - insulin lispro 100 unit/mL injection Inject [...] by mouth daily with lunch. 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 [employer] [place] with lunch aspirin, enteric coated (ASPIRIN, ENTERIC [...] Pts RN at [facility] reports pts sister picks up Rx [...] Apply 0. (more content not included)... Normal [facility] Office Visiton 09-09-2022 Follow-up visit [id number] Alex Almonte 1945 M Date Provider Department Center 09/09/2022 1596-SARTHAK PARNELL CARD [facility] Family History Problem Relation Age of Onset Cancer Mother Aneurysm Father Cancer Father Parkinsonism Father Family Status - Relation Status Age at Mother Father Level of Service:09617 CA OFFICE/OUTPATIENT ESTABLISHED MOD MDM 30-39 MIN Normal [facility] Glucose Poct Glucometerson 0 07-20-2022 Commemt1 Glu2: Cleaned Meter Normal [facility] Comment on above: Result Comment: PERF ORMED BY: [facility] [address] [place] [address] PATHOLOGIST PRIMARY MONTESSORI TEACHER JOSE F ELLIOTT M.D. Performed By: #### G LULS #### Point of Care testing , Glucose [Mass/Vol] 176 mg/dL Normal [facility] Comment on above: Result Comment: [facility] Glucose Reference Range is dependent on time and content of last meal. Glucose of more than 200 mg/dL in a nonstressed, ambulatory subject supports the diagnosis of Diabetes Mellitus. Performed By: #### G LULS #### Point of Care testing , FK506 (TACROLIMUS) WHOLE BLO ODon 07-12-2022 Tacrolimus (FK506), Blood 10.9 ng/mL Normal 2.0-20.0 [facility] Comment on above: Result Comment: Trou gh (immediately following transplant) 15.0 . Trough (steady state, 2 weeks or more after transplant): 3.0 - 8.0 . Performed by LC-MS/MS technology. Performed By: #### F K506T ####[facility] [address] [place], [place] [address]Dr. Farhat Leal CBC AUTO DIFFon 07-10-2022 BASO # 0.0 103/ul Normal 0.0-0.1 [facility] Comment on above: Performed By: #### C BC ####[facility] [address] [place], [place] [address]Dr. Farhat Leal Basophils/100 WBC (Bld) 0.5 % Normal 0.2-2.0 [facility] Comment on above: Performed By: #### C BC ####[facility] [address] [place], [place] [address]Dr. Farhat Leal EO # 0.3 103/ul Normal 0.0-0.7 [facility] Comment on above: Performed By: #### C BC ####[facility] Dw[address] [place], [place] [address]Dr. Farhat Leal Eosinophils/100 WBC (Bld) 4.9 % Normal 0.9-7.0 [facility] Comment on above: Performed By: #### C BC ####[facility] N[address] [place], [place] [address]Dr. Farhat Leal Erythrocyte distribution width (RBC) [Ratio] 13.8 % Normal 11.0-15.0 [facility] Comment on above: Performed By: #### C BC ####[facility] [address] [place], [place] [address]Dr. Farhat Leal Hematocrit (Bld) [Volume fraction] 36.6 % Critically low 42.0-54.0 [facility] Comment on above: Performed By: #### C BC ####[facility] [address] [place] [id number]. Farhat Leal Hemoglobin (Bld) [Mass/Vol] 12.2 g/dL Critically low 14.0-18.0 [facility] Comment on above: Performed By: #### C BC ####[facility] [address] [place] [id number]. Farhat Leal IG # 0.01 10e3/ul Normal 0.00-0.03 [facility] Comment on above: Performed By: #### C BC ####[facility] [address] [place] [address]Dr. Farhat Leal IG % 0.2 % Normal 0.0-0.5 [facility] Comment on above: Performed By: #### C BC ####[facility] [address] [place] [address]Dr. Farhat Leal LYMPH # 2.2 103/ul Normal 1.2-3.8 [facility] Comment on above: Performed By: #### C BC ####[facility] [address] [place] [address]Dr. Farhat Leal Lymphocytes/100 WBC (Bld) 33.9 % Normal 20.5-60.0 [facility] Comment on above: Performed By: #### C BC ####[facility] [address] [place] [address]Dr. Farhat Leal MANUAL DIFF REQ NO Normal [facility] Comment on above: Performed By: #### C BC ####[facility] X[address] [place] [id number]. Farhat Leal MCH (RBC) [Entitic mass] 31.0 pg Normal 25.9-34.0 [facility] Comment on above: Performed By: #### C BC ####[facility] X[address] [place] [address]Dr. Farhat Leal MCHC (RBC) [Mass/Vol] 33.3 g/dL Normal 29.9-35.2 [facility] Comment on above: Performed By: #### C BC ####[facility] [address] [place], [place] [address]Dr. Farhat Leal MCV (RBC) [Entitic vol] 93.1 fL Normal 80.0-94.0 [facility] Comment on above: Performed By: #### C BC ####[facility] [address] [place] [address]Dr. Farhat Leal MONO # 0.7 103/ul Normal 0.3-0.8 [facility] Comment on above: Performed By: #### C BC ####[facility] [address] [place] [address]Dr. Farhat Elvis Monocytes/100 WBC (Bld) 10.8 % Normal 1.7-12.0 [facility] Comment on above: Performed By: #### C BC ####[facility] [address] [place] [address]Dr. Farhat Leal NEUT # 3.2 103/ul Normal 1.4-6.5 [facility] Comment on above: Performed By: #### C BC ####[facility] [address] [place] [address]Dr. Farhat Elvis Neutrophils/100 WBC (Bld) 49.7 % Normal 43.0-75.0 [facility] Comment on above: Performed By: #### C BC ####[facility] [address]sp[address] [place] [address]Dr. Farhat Elvis Platelet mean volume (Bld) [Entitic vol] 10.9 fL Normal 9.5-13.5 [facility] Comment on above: Performed By: #### C BC ####[facility] [address] [place] [address]Dr. Farhat Elvis PLT 195 103/ul Normal 150-450 [facility] Comment on above: Performed By: #### C BC ####[facility] [address] [place] [address]Dr. Farhat Elvis RBC 3.93 106/ul Critically low 4.70-6.10 [facility] Comment on above: Performed By: #### C BC ####[facility] Qxolmdsrot[address] [place] [address]Dr. Farhat Leal WBC 6.4 103/ul Normal 4.0-11.0 [facility] Comment on above: Performed By: #### C BC ####[facility] Us[address] [place], [place] [address]Dr. Farhat Leal MAGNESIUMon 07-10-2022 Magnesium [Mass/Vol] 1.9 mg/dL Normal 1.8-2.4 [facility] Comment on above: Performed By: #### M Anais PHOS ####[facility] [address] [place] [address]Dr. Farhat Leal PHOSPHORUSon 07-10-2022 Phosphate [Mass/Vol] 4.7 mg/dL Normal 2.6-4.7 [facility] Comment on above: Performed By: #### Demetrice Manzo PHOS ####[facility] [address] [place], [place] [address]Dr. Farhat Leal PROF 14(COMP METB)on 023 Albumin [Mass/Vol] 2.7 g/dL Critically low 3.4-5.0 [facility] Comment on above: Performed By: #### C MP ####[facility] Y[address] [place], [place] [address]Dr. Madelynlorri Leal Albumin/Globulin [Mass ratio] 0.8 {ratio} Normal [facility] Comment on above: Performed By: #### C MP ####[facility] Sabjqlbpsu[address] [place], [place] [address]Dr. Madelynlorri Leal ALP [Catalytic activity/Vol] 59 U/L Normal 46-116 [facility] Comment on above: Performed By: #### C MP ####[facility] Re[address]fpyex[address] [place], [place] [address]Dr. Farhat Leal ALT [Catalytic activity/Vol] 16 U/L Normal 16-63 [facility] Comment on above: Performed By: #### C MP ####[facility] D[address]qfv[address] [place] [address]Dr. Farhat Leal Anion gap [Moles/Vol] 12.3 mmol/L Normal [facility] Comment on above: Performed By: #### C MP ####[facility] [address] [place] [id number]. Farhat Leal AST [Catalytic activity/Vol] 17 U/L Normal 15-37 [facility] Comment on above: Performed By: #### C MP ####[facility] Qcz[address]zztnn020[address] [place] [address]Dr. Farhat Leal Bilirubin [Mass/Vol] 0.5 mg/dL Normal 0.2-1.0 [facility] Comment on above: Performed By: #### C MP ####[facility] [address] [place], [place] [id number]. Farhat Leal Calcium [Mass/Vol] 8.5 mg/dL Normal 8.5-10.1 [facility] Comment on above: Performed By: #### C MP ####[facility] [address] [place], [place] [address]Dr. Farhat Leal Chloride [Moles/Vol] 104 mmol/L Normal 98-107 [facility] Comment on above: Performed By: #### C MP ####[facility] J[address] [place], [place] [address]Dr. Farhat Leal CO2 [Moles/Vol] 27.6 mmol/L Normal 21.0-32.0 [facility] Comment on above: Performed By: #### C MP ####[facility] Ps[address]fzsarfl[address] [place], [place] [address]Dr. Farhat Leal Creatinine [Mass/Vol] 1.79 mg/dL Critically high 0.70-1.30 [facility] Comment on above: Performed By: #### C MP ####[facility] [address] [place], [place] [address]Dr. Farhat Leal EGFR-AF JORDANIAN 45 mL/min/1.73m2 Critically low >=60 [facility] Comment on above: Performed By: #### C MP ####[facility] R[address]me[address] [place], [place] [address]Dr. Farhat Leal EGFR-NON AF JORDANIAN 37 mL/min/1.73m2 Critically low >=60 [facility] Comment on above: Performed By: #### C MP ####[facility] [address] [place] [address]Dr. Farhat Leal Globulin (S) [Mass/Vol] 3.2 g/dL Normal [facility] Comment on above: Performed By: #### C MP ####[facility] S[address]sh[address]wn[address] [place] [address]Dr. Farhat Leal Glucose [Mass/Vol] 203 mg/dL Critically high 74-106 [facility] Comment on above: Performed By: #### C MP ####[facility] [address]zs[address] [place] [address]Dr. Farhat Leal Potassium [Moles/Vol] 3.9 mmol/L Normal 3.5-5.1 [facility] Comment on above: Performed By: #### C MP ####[facility] [address]sh[address] [place], [place] [address]Dr. Farhat Leal Protein [Mass/Vol] 5.9 g/dL Critically low 6.4-8.2 [facility] Comment on above: Performed By: #### C MP ####[facility] [address] [place], [place] [address]Dr. Farhat Leal Sodium [Moles/Vol] 140 mmol/L Normal 136-145 [facility] Comment on above: Performed By: #### C MP ####[facility] [address] [place], [place] [address]Dr. Farhat Leal Urea nitrogen [Mass/Vol] 61.0 mg/dL Critically high 7.0-18.0 [facility] Comment on above: Performed By: #### C MP ####[facility] A[address] [place], [place] [address]Dr. Farhat Leal Urea nitrogen/Creatinine [Mass ratio] 34.1 mg/mg Normal [facility] Comment on above: Performed By: #### C MP ####[facility] [address]rg[address] [place], [place] [address]Dr. Farhat Lael PROTIMEon 07-10-2022 INR Coag (PPP) [Relative time] 2.95 {INR} Normal [facility] Comment on above: Performed By: #### P T ####[facility] [address] [place] [address]Dr. Farhat Leal INR GUIDELINES SEE BELOW Normal [facility] Comment on above: Result Comment: MALINA RED INR: 2.0 - 3.0 CONDITIONS NOT LISTED BELOW 2.5 - 3.5 FOR PROSTHETIC HEART VALVE REPLACEMENT 2.5 - 3.5 RECURRENT THROMBOSIS Performed By: #### P T ####[facility] [address]xf[address] [place], [place] [address]Dr. Farhat Leal PT Coag (PPP) [Time] 29.4 s Critically high 9.0-11.6 [facility] Comment on above: Performed By: #### P T ####[facility] X[address]uxt[address] [place], [place] [address]Dr. Farhat Leal FK506 (TACROLIMUS) WHOLE BLO ODon 07-07-2022 Tacrolimus (FK506), Blood 8.3 ng/mL Normal 2.0-20.0 [facility] Comment on above: Result Comment: Trou gh (immediately following transplant) 15.0 . Trough (steady state, 2 weeks or more after transplant): 3.0 - 8.0 . Performed by LC-MS/MS technology. Performed By: #### F K506T ####[facility] [address] [place], [place] [address]Dr. Farhat Leal CBC AUTO DIFFon 07-03-2022 BASO # 0.0 103/ul Normal 0.0-0.1 [facility] Comment on above: Performed By: #### C BC ####[facility] Cy[address] [place], [place] [address]Dr. Farhat Leal Basophils/100 WBC (Bld) 0.6 % Normal 0.2-2.0 [facility] Comment on above: Performed By: #### C BC ####[facility] [address]tm[address] [place], [place] [address]Dr. Farhat Leal EO # 0.3 103/ul Normal 0.0-0.7 [facility] Comment on above: Performed By: #### C BC ####[facility] N[address]fkpmtgh[address] [place] [address]Dr. Farhat Leal Eosinophils/100 WBC (Bld) 4.1 % Normal 0.9-7.0 [facility] Comment on above: Performed By: #### C BC ####[facility] [address]vsqs[address] [place], [place] [address]Dr. Farhat Leal Erythrocyte distribution width (RBC) [Ratio] 14.0 % Normal 11.0-15.0 [facility] Comment on above: Performed By: #### C BC ####[facility] [address]rh[address] [place], [place] [address]Dr. Farhat Leal Hematocrit (Bld) [Volume fraction] 35.9 % Critically low 42.0-54.0 [facility] Comment on above: Performed By: #### C BC ####[facility] [address] [place], [place] [address]Dr. Farhat Leal Hemoglobin (Bld) [Mass/Vol] 12.0 g/dL Critically low 14.0-18.0 [facility] Comment on above: Performed By: #### C BC ####[facility] [address] [place], [place] [address]Dr. Farhat Leal IG # 0.04 10e3/ul Critically high 0.00-0.03 [facility] Comment on above: Performed By: #### C BC ####[facility] [address] [place], [place] [address]Dr. Farhat Leal IG % 0.6 % Critically high 0.0-0.5 [facility] Comment on above: Performed By: #### C BC ####[facility] [address] [place], [place] [address]Dr. Farhat Leal LYMPH # 1.5 103/ul Normal 1.2-3.8 [facility] Comment on above: Performed By: #### C BC ####[facility] [address] [place], [place] [address]Dr. Farhat Leal Lymphocytes/100 WBC (Bld) 21.5 % Normal 20.5-60.0 [facility] Comment on above: Performed By: #### C BC ####[facility] [address] [place] [id number]. Farhat Leal MANUAL DIFF REQ NO Normal [facility] Comment on above: Performed By: #### C BC ####[facility] [address]xx[address] [place] [address]Dr. Farhat Leal MCH (RBC) [Entitic mass] 30.8 pg Normal 25.9-34.0 [facility] Comment on above: Performed By: #### C BC ####[facility] [address]iseb[address] [place] [address]Dr. Farhat Leal MCHC (RBC) [Mass/Vol] 33.4 g/dL Normal 29.9-35.2 [facility] Comment on above: Performed By: #### C BC ####[facility] [address] [place] [address]Dr. Farhat Leal MCV (RBC) [Entitic vol] 92.1 fL Normal 80.0-94.0 [facility] Comment on above: Performed By: #### C BC ####[facility] [address]oufzy26[address] [place] [address]Dr. Farhat Leal MONO # 0.6 103/ul Normal 0.3-0.8 [facility] Comment on above: Performed By: #### C BC ####[facility] [address]pitl[address] [place] [address]Dr. Farhat Elvis Monocytes/100 WBC (Bld) 8.7 % Normal 1.7-12.0 [facility] Comment on above: Performed By: #### C BC ####[facility] Q[address]ffgfpxkv[address] [place] [address]Dr. Farhat Leal NEUT # 4.4 103/ul Normal 1.4-6.5 [facility] [facility] Comment on above: Performed By: #### C BC ####[facility] Xofzlifhhs[address] [place], [place] [address]Dr. Farhat Elvis Neutrophils/100 WBC (Bld) 64.5 % Normal 43.0-75.0 [facility] Comment on above: Performed By: #### C BC ####[facility] W[address]qkwj38[address] [place] [id number]. Farhat Leal Platelet mean volume (Bld) [Entitic vol] 10.1 fL Normal 9.5-13.5 [facility] Comment on above: Performed By: #### C BC ####[facility] Rzozfxlngk37[address] [place] [id number]. Farhat Leal PLT 177 103/ul Normal 150-450 [facility] Comment on above: Performed By: #### C BC ####[facility] Kcvemavyel4[address] [place] [address]Dr. Farhat Leal RBC 3.90 106/ul Critically low 4.70-6.10 [facility] Comment on above: Performed By: #### C BC ####[facility] Kxysynfoze5[address] [place] [address]Dr. Farhat Leal WBC 6.8 103/ul Normal 4.0-11.0 [facility] Comment on above: Performed By: #### C BC ####[facility] Xfsttjivqg3[address] [place] [address]Dr. Farhat Leal PROF 14(COMP METB)on 023 Albumin [Mass/Vol] 2.8 g/dL Critically low 3.4-5.0 [facility] Comment on above: Performed By: #### C MP ####[facility] Fmadwvlcry[address] [place] [address]Dr. Farhat Leal Albumin/Globulin [Mass ratio] 0.8 {ratio} Normal [facility] Comment on above: Performed By: #### C MP ####[facility] Qphsrqfrvh3589 [place] [address]Dr. Farhat Leal ALP [Catalytic activity/Vol] 68 U/L Normal 46-116 [facility] Comment on above: Performed By: #### C MP ####[facility] Oszxgbikah69[address] [place] [address]Dr. Farhat Leal ALT [Catalytic activity/Vol] 20 U/L Normal 16-63 [facility] Comment on above: Performed By: #### C MP ####[facility] Pvzznijhnk4939 [place] [address]Dr. Farhat Leal Anion gap [Moles/Vol] 11.1 mmol/L Normal [facility] Comment on above: Performed By: #### C MP ####[facility] Ofirxlneip9[address] [place] [address]Dr. Farhat Leal AST [Catalytic activity/Vol] 22 U/L Normal 15-37 [facility] Comment on above: Performed By: #### C MP ####[facility] Ycwhxuvifx[address] [place], [place] [address]Dr. Farhat Leal Bilirubin [Mass/Vol] 0.4 mg/dL Normal 0.2-1.0 [facility] Comment on above: Performed By: #### C MP ####[facility] Fbzgravnct27[address] [place], [place] [address]Dr. Farhat Leal Calcium [Mass/Vol] 8.5 mg/dL Normal 8.5-10.1 [facility] Comment on above: Performed By: #### C MP ####[facility] Mxvjvsjyck10[address] [place], [place] [address]Dr. Farhat Elvis Chloride [Moles/Vol] 106 mmol/L Normal 98-107 [facility] Comment on above: Performed By: #### C MP ####[facility] Tmwzuvzjwv90[address] [place], [place] [address]Dr. Farhat Leal CO2 [Moles/Vol] 29.1 mmol/L Normal 21.0-32.0 [facility] Comment on above: Performed By: #### C MP ####[facility] Cxzgeexocd3794[address] [place], [place] [address]Dr. Farhat Elvis Creatinine [Mass/Vol] 1.70 mg/dL Critically high 0.70-1.30 [facility] Comment on above: Performed By: #### C MP ####[facility] Jnzskhxczk9438[address] [place], [place] [address]Dr. Farhat Elvis EGFR-AF JORDANIAN 48 mL/min/1.73m2 Critically low >=60 [facility] Comment on above: Performed By: #### C MP ####[facility] Mdnsmawhyc54[address] [place] [address]Dr. Farhat Leal EGFR-NON AF JORDANIAN 39 mL/min/1.73m2 Critically low >=60 [facility] Comment on above: Performed By: #### C MP ####[facility] Fmhezspntu0[address] [place] [address]Dr. Farhat Leal Globulin (S) [Mass/Vol] 3.6 g/dL Normal [facility] Comment on above: Performed By: #### C MP ####[facility] Pbohlxoujh8482 [place] [address]Dr. Farhat Leal Glucose [Mass/Vol] 312 mg/dL Critically high 74-106 T [facility] Comment on above: Performed By: #### C MP ####[facility] Vthcfxoqfh3529 [place] [address]Dr. Farhat Leal Potassium [Moles/Vol] 4.2 mmol/L Normal 3.5-5.1 [facility] Comment on above: Performed By: #### C MP ####[facility] Ikrlvreiws75[address] [place], [place] [address]Dr. Farhat Leal Protein [Mass/Vol] 6.4 g/dL Normal 6.4-8.2 [facility] Comment on above: Performed By: #### C MP ####[facility] Ubqahbfrmv[address] [place], [place] [address]Dr. Farhat Leal Sodium [Moles/Vol] 142 mmol/L Normal 136-145 [facility] Comment on above: Performed By: #### C MP ####[facility] Cacsbwiftt4519 [place] [address]Dr. Farhat Leal Urea nitrogen [Mass/Vol] 49.0 mg/dL Critically high 7.0-18.0 [facility] Comment on above: Performed By: #### C MP ####[facility] Fkduyexrfz38[address] [place], [place] [address]Dr. Farhat Leal Urea nitrogen/Creatinine [Mass ratio] 28.8 mg/mg Normal [facility] Comment on above: Performed By: #### C MP ####[facility] Akvyzpokek[address] [place], [place] [address]DrSkylar Leal PROTIMEon 07-03-2022 INR Coag (PPP) [Relative time] 2.23 {INR} Normal [facility] Comment on above: Performed By: #### P T ####[facility] Tkhbocnsek[address] [place], [place] [address]DrSkylar Leal INR GUIDELINES SEE BELOW Normal [facility] Comment on above: Result Comment: MALINA RED INR: 2.0 - 3.0 CONDITIONS NOT LISTED BELOW 2.5 - 3.5 FOR PROSTHETIC HEART VALVE REPLACEMENT 2.5 - 3.5 RECURRENT THROMBOSIS Performed By: #### P T ####[facility] Qlrmberynt479[address] [place], [place] [address]DrSkylar Leal PT Coag (PPP) [Time] 22.6 s Critically high 9.0-11.6 [facility] Comment on above: Performed By: #### P T ####[facility] Xwehvenyuf0058[address] [place], [place] [address]DrSkylar Leal FK506 (TACROLIMUS) WHOLE BLO ODon 06-29-2022 Tacrolimus (FK506), Blood 12.2 ng/mL Normal 2.0-20.0 [facility] Comment on above: Result Comment: Trou gh (immediately following transplant) 15.0 . Trough (steady state, 2 weeks or more after transplant): 3.0 - 8.0 . Performed by LC-MS/MS technology. Performed By: #### F K506T ####[facility] Vamdgzzuhp4565[address] [place], [place] [address]Dr. Farhat Leal CBC AUTO DIFFon 06-26-2022 BASO # 0.0 103/ul Normal 0.0-0.1 [facility] Comment on above: Performed By: #### C BC ####[facility] Klofbgainw[address] [place], [place] [address]DrSkylar Leal Basophils/100 WBC (Bld) 0.5 % Normal 0.2-2.0 [facility] Comment on above: Performed By: #### C BC ####[facility] Faezoaiipz1959[address] [place], [place] [address]DrSkylar Leal EO # 0.3 103/ul Normal 0.0-0.7 [facility] Comment on above: Performed By: #### C BC ####[facility] Omhubzrjvt4[address] [place], [place] [address]Dr. Farhat Leal Eosinophils/100 WBC (Bld) 4.3 % Normal 0.9-7.0 [facility] Comment on above: Performed By: #### C BC ####[facility] Andejulkaj428[address] [place], [place] [address]Dr. Farhat Leal Erythrocyte distribution width (RBC) [Ratio] 14.1 % Normal 11.0-15.0 [facility] Comment on above: Performed By: #### C BC ####[facility] Gqkjzljmnz9[address] [place], [place] [address]Dr. Farhat Leal Hematocrit (Bld) [Volume fraction] 35.4 % Critically low 42.0-54.0 [facility] Comment on above: Performed By: #### C BC ####[facility] Qzrsgbdsmq[address] [place], [place] [address]Dr. Farhat Leal Hemoglobin (Bld) [Mass/Vol] 11.8 g/dL Critically low 14.0-18.0 [facility] Comment on above: Performed By: #### C BC ####[facility] Swtqtdihht6[address] [place], [place] [address]Dr. Farhat Leal IG # 0.02 10e3/ul Normal 0.00-0.03 [facility] Comment on above: Performed By: #### C BC ####[facility] Klapoyzrwk989[address] [place], [place] [address]Dr. Farhat Elvis IG % 0.3 % Normal 0.0-0.5 [facility] Comment on above: Performed By: #### C BC ####[facility] Ufznnokfxj0939[address] [place], [place] [address]Dr. Farhat Leal LYMPH # 2.4 103/ul Normal 1.2-3.8 [facility] Comment on above: Performed By: #### C BC ####[facility] Ilrdptljpm[address]25[address] [place], [place] [address]DrSkylar Leal Lymphocytes/100 WBC (Bld) 40.4 % Normal 20.5-60.0 [facility] Comment on above: Performed By: #### C BC ####[facility] Wsuxfhcoig[address] [place] [address]DrSkylar Leal MANUAL DIFF REQ NO Normal [facility] Comment on above: Performed By: #### C BC ####[facility] Tcgfnccrjn7999 [place] [address]DrSkylar Leal MCH (RBC) [Entitic mass] 31.0 pg Normal 25.9-34.0 [facility] Comment on above: Performed By: #### C BC ####[facility] Ptjtydgsyt3164[address] [place], [place] [address]DrSkylar Leal MCHC (RBC) [Mass/Vol] 33.3 g/dL Normal 29.9-35.2 [facility] Comment on above: Performed By: #### C BC ####[facility] Nbrzjtlzsf639[address] [place], [place] [address]DrSkylar Leal MCV (RBC) [Entitic vol] 92.9 fL Normal 80.0-94.0 [facility] Comment on above: Performed By: #### C BC ####[facility] Bpovrealqn299[address] [place], [place] [address]DrSkylar Leal MONO # 0.7 103/ul Normal 0.3-0.8 [facility] Comment on above: Performed By: #### C BC ####[facility] Yobjfhgwfx4207[address] [place], [place] [address]DrSkylar Leal Monocytes/100 WBC (Bld) 11.1 % Normal 1.7-12.0 [facility] Comment on above: Performed By: #### C BC ####[facility] Gvpcdhfcka70[address] [place], [place] [address]DrSkylar Leal NEUT # 2.6 103/ul Normal 1.4-6.5 [facility] Comment on above: Performed By: #### C BC ####[facility] Altedrnsjs9912[address] [place], [place] [address]DrSkylar Leal Neutrophils/100 WBC (Bld) 43.4 % Normal 43.0-75.0 [facility] Comment on above: Performed By: #### C BC ####[facility] Nbxgjwrvfv1485 [place] [address]Dr. Farhat Leal Platelet mean volume (Bld) [Entitic vol] 10.4 fL Normal 9.5-13.5 [facility] Comment on above: Performed By: #### C BC ####[facility] Zrecdaeytt6142 [place] [address]Dr. Farhat Leal PLT 211 103/ul Normal 150-450 [facility] Comment on above: Performed By: #### C BC ####[facility] Gllvsjmldf4128[address] [place], [place] [address]Dr. Farhat Leal RBC 3.81 106/ul Critically low 4.70-6.10 [facility] Comment on above: Performed By: #### C BC ####[facility] Icbnaxkxqp5257[address] [place], [place] [address]Dr. Farhat Leal WBC 6.0 103/ul Normal 4.0-11.0 [facility] Comment on above: Performed By: #### C BC ####[facility] Iymksundpo7013[address] [place], [place] [address]DrSkylar Leal PROF 14(COMP METB)on 023 Albumin [Mass/Vol] 2.6 g/dL Critically low 3.4-5.0 [facility] Comment on above: Performed By: #### C MP ####[facility] Bbezwwoaff8738[address] [place], [place] [address]DrSkylar Leal Albumin/Globulin [Mass ratio] 0.8 {ratio} Normal [facility] Comment on above: Performed By: #### C MP ####[facility] Uewguivraj5250[address] [place], [place] [address]DrSkylar Leal ALP [Catalytic activity/Vol] 64 U/L Normal 46-116 [facility] Comment on above: Performed By: #### C MP ####[facility] Fdvznpveum[address] [place], [place] [address]DrSkylar Leal ALT [Catalytic activity/Vol] 18 U/L Normal 16-63 [facility] Comment on above: Performed By: #### C MP ####[facility] Zlvwuleujs0621 [place] [id number]. Farhat Elvis Anion gap [Moles/Vol] 10.2 mmol/L Normal Th [facility] Comment on above: Performed By: #### C MP ####[facility] Euccdhdcba1402 [place] [id number]. Farhat Elvis AST [Catalytic activity/Vol] 16 U/L Normal 15-37 [facility] Comment on above: Performed By: #### C MP ####[facility] Ndkbduarif3893 [place] [address]Dr. Farhat Leal Bilirubin [Mass/Vol] 0.6 mg/dL Normal 0.2-1.0 [facility] Comment on above: Performed By: #### C MP ####[facility] Fxkmvjkqlv12[address] [place], [place] [address]Dr. Madelynlorri Leal Calcium [Mass/Vol] 8.5 mg/dL Normal 8.5-10.1 [facility] Comment on above: Performed By: #### C MP ####[facility] Ftzfqiwtco[address] [place], [place] [id number]. Farhat Leal Chloride [Moles/Vol] 106 mmol/L Normal 98-107 [facility] Comment on above: Performed By: #### C MP ####[facility] Bpjabxbezx7[address] [place], [place] [id number]. Farhat Leal CO2 [Moles/Vol] 29.8 mmol/L Normal 21.0-32.0 [facility] Comment on above: Performed By: #### C MP ####[facility] Uawzelnwvx[address] [place], [place] [id number]. Farhat Leal Creatinine [Mass/Vol] 1.60 mg/dL Critically high 0.70-1.30 [facility] Comment on above: Performed By: #### C MP ####[facility] Fhxeajffyb[address] [place], [place] [id number]. Farhat Leal EGFR-AF JORDANIAN 51 mL/min/1.73m2 Critically low >=60 [facility] Comment on above: Performed By: #### C MP ####[facility] Rpcsluhkzb8352 [place] [address]Dr. Farhat Elvis EGFR-NON AF JORDANIAN 42 mL/min/1.73m2 Critically low >=60 [facility] Comment on above: Performed By: #### C MP ####[facility] Deevceivme9912 [place] [address]Dr. Madelynlorri Elvis Globulin (S) [Mass/Vol] 3.4 g/dL Normal [facility] Comment on above: Performed By: #### C MP ####[facility] Ppckcolvre187[address] [place], [place] [address]Dr. Farhat Leal Glucose [Mass/Vol] 178 mg/dL Critically high 74-106 T [facility] Comment on above: Performed By: #### C MP ####[facility] Unvzajfxcd2401[address] [place], [place] [address]Dr. Farhat Leal Potassium [Moles/Vol] 4.0 mmol/L Normal 3.5-5.1 [facility] Comment on above: Performed By: #### C MP ####[facility] Pruelmiavv077[address] [place], [place] [address]Dr. Madelynlorri Elvis Protein [Mass/Vol] 6.0 g/dL Critically low 6.4-8.2 Th [facility] Comment on above: Performed By: #### C MP ####[facility] Kwrgtuzqoy9[address] [place], [place] [address]Dr. Farhat Leal Sodium [Moles/Vol] 142 mmol/L Normal 136-145 [facility] Comment on above: Performed By: #### C MP ####[facility] Cxuaulaszr7413[address] [place], [place] [address]Dr. Farhat Leal Urea nitrogen [Mass/Vol] 49.0 mg/dL Critically high 7.0-18.0 [facility] Comment on above: Performed By: #### C MP ####[facility] Zlcshzvzql206[address] [place], [place] [address]Dr. Farhat Leal Urea nitrogen/Creatinine [Mass ratio] 30.6 mg/mg Normal [facility] Comment on above: Performed By: #### C MP ####[facility] Ttesgsdcwj97[address] [place], [place] [address]DrSkylar Leal PROTIMEon 06-26-2022 INR Coag (PPP) [Relative time] 1.77 {INR} Normal [facility] Comment on above: Performed By: #### P T ####[facility] Jxgfewnyil197[address] [place], [place] [address]DrSkylar Leal INR GUIDELINES SEE BELOW Normal [facility] Comment on above: Result Comment: MALINA RED INR: 2.0 - 3.0 CONDITIONS NOT LISTED BELOW 2.5 - 3.5 FOR PROSTHETIC HEART VALVE REPLACEMENT 2.5 - 3.5 RECURRENT THROMBOSIS Performed By: #### P T ####[facility] Lemdtatkvc767[address] [place], [place] [address]Dr. Farhat Leal PT Coag (PPP) [Time] 18.2 s Critically high 9.0-11.6 [facility] Comment on above: Performed By: #### P T ####[facility] Rcsrvbdrnt[address] [place], [place] [address]DrSkylar Leal FK506 (TACROLIMUS) WHOLE BLO ODon 06-22-2022 Tacrolimus (FK506), Blood 24.5 ng/mL Invalid Interpretation Code 2.0-20.0 [facility] Comment on above: Result Comment: Trou gh (immediately following transplant) 15.0 . Trough (steady state, 2 weeks or more after transplant): 3.0 - 8.0 . Performed by LC-MS/MS technology.Patient drug level exceeds published reference range. Evaluateclinically for signs of potential toxicity. Performed By: #### F K506T ####[facility] Xhjppsefyp[address] [place], [place] [address]DrSkylar Leal CBC AUTO DIFFon 06-19-2022 BASO # 0.1 103/ul Normal 0.0-0.1 [facility] Comment on above: Performed By: #### C BC ####[facility] Mfpsngenok4[address] [place], [place] [address]DrSkylar Leal Basophils/100 WBC (Bld) 0.7 % Normal 0.2-2.0 [facility] Comment on above: Performed By: #### C BC ####[facility] Xkkipjhrcb4815[address] [place], [place] [address]Dr. Farhat Leal EO # 0.4 103/ul Normal 0.0-0.7 [facility] Comment on above: Performed By: #### C BC ####[facility] Rerfysbafb99[address] [place], [place] [address]Dr. Farhat Leal Eosinophils/100 WBC (Bld) 5.7 % Normal 0.9-7.0 [facility] Comment on above: Performed By: #### C BC ####[facility] Qgdwopfico8220[address] [place], [place] [address]Dr. Farhat Leal Erythrocyte distribution width (RBC) [Ratio] 14.5 % Normal 11.0-15.0 [facility] Comment on above: Performed By: #### C BC ####[facility] Qdstupyblo6310[address] [place], [place] [address]Dr. Farhat Leal Hematocrit (Bld) [Volume fraction] 34.1 % Critically low 42.0-54.0 [facility] Comment on above: Performed By: #### C BC ####[facility] Yyfmpevijq427[address] [place], [place] [address]Dr. Farhat Leal Hemoglobin (Bld) [Mass/Vol] 11.3 g/dL Critically low 14.0-18.0 [facility] Comment on above: Performed By: #### C BC ####[facility] Fwjjubtokc[address] [place], [place] [address]Dr. Farhat Leal IG # 0.02 10e3/ul Normal 0.00-0.03 [facility] Comment on above: Performed By: #### C BC ####[facility] Jzdywymvzz8[address] [place], [place] [address]Dr. Farhat Leal IG % 0.3 % Normal 0.0-0.5 [facility] Comment on above: Performed By: #### C BC ####[facility] Goxaudgsot7354[address] [place], [place] [address]Dr. Farhat Leal LYMPH # 3.1 103/ul Normal 1.2-3.8 [facility] Comment on above: Performed By: #### C BC ####[facility] Cvcfdplspu34[address] [place] [address]DrSkylar Leal Lymphocytes/100 WBC (Bld) 40.6 % Normal 20.5-60.0 [facility] Comment on above: Performed By: #### C BC ####[facility] Ixwomztovq33[address] [place] [address]DrSkylar Leal MANUAL DIFF REQ NO Normal [facility] Comment on above: Performed By: #### C BC ####[facility] Lbaphgzqgs1726 [place] [address]DrSkylar Leal MCH (RBC) [Entitic mass] 30.6 pg Normal 25.9-34.0 [facility] Comment on above: Performed By: #### C BC ####[facility] Eneujgqglb2266 [place] [address]Dr. Farhat Leal MCHC (RBC) [Mass/Vol] 33.1 g/dL Normal 29.9-35.2 [facility] Comment on above: Performed By: #### C BC ####[facility] Pvzhlumzid[address] [place], [place] [address]DrSkylar Leal MCV (RBC) [Entitic vol] 92.4 fL Normal 80.0-94.0 [facility] Comment on above: Performed By: #### C BC ####[facility] Gxnjawwqdk5303 [place] [address]DrSkylar Leal MONO # 0.8 103/ul Normal 0.3-0.8 [facility] Comment on above: Performed By: #### C BC ####[facility] Stnkluxqqm[address] [place], [place] [address]DrSkylar Leal Monocytes/100 WBC (Bld) 10.6 % Normal 1.7-12.0 [facility] Comment on above: Performed By: #### C BC ####[facility] Fqqzxhrgdg[address] [place], [place] [address]DrSkylar Leal NEUT # 3.2 103/ul Normal 1.4-6.5 [facility] Comment on above: Performed By: #### C BC ####[facility] Nkfdwhnupq5192 [place] [address]DrSkylar Leal Neutrophils/100 WBC (Bld) 42.1 % Critically low 43.0-75.0 [facility] Comment on above: Performed By: #### C BC ####[facility] Ofswpwewts[address] [place], [place] [address]DrSkylar Leal Platelet mean volume (Bld) [Entitic vol] 10.6 fL Normal 9.5-13.5 [facility] Comment on above: Performed By: #### C BC ####[facility] Fdjadrblva88[address] [place], [place] [address]DrSkylar Leal PLT 187 103/ul Normal 150-450 [facility] Comment on above: Performed By: #### C BC ####[facility] Kvkkfocfrp[address] [place], [place] [address]DrSkylar Leal RBC 3.69 106/ul Critically low 4.70-6.10 [facility] Comment on above: Performed By: #### C BC ####[facility] Hwvrgtxylx[address] [place], [place] [id number] Leal WBC 7.7 103/ul Normal 4.0-11.0 [facility] Comment on above: Performed By: #### C BC ####[facility] Pdcwakajrj60[address] [place], [place] [address]Dr. Farhat Leal PROF 14(COMP METB)on 023 Albumin [Mass/Vol] 2.5 g/dL Critically low 3.4-5.0 [facility] Comment on above: Performed By: #### C MP ####[facility] Utdypbavef[address] [place], [place] [address]DrSkylar Leal Albumin/Globulin [Mass ratio] 0.8 {ratio} Normal [facility] Comment on above: Performed By: #### C MP ####[facility] Rlbzfvddti[address] [place], [place] [id number]. Farhat Leal ALP [Catalytic activity/Vol] 60 U/L Normal 46-116 [facility] Comment on above: Performed By: #### C MP ####[facility] Rnfoximnly[address] [place] [address]Dr. Farhat Leal ALT [Catalytic activity/Vol] 16 U/L Normal 16-63 [facility] Comment on above: Performed By: #### C MP ####[facility] Zkvjeegpna[address] [place], [place] [address]Dr. Farhat Elvis Anion gap [Moles/Vol] 9.1 mmol/L Normal [facility] Comment on above: Performed By: #### C MP ####[facility] Nlvyzdsapf[address] [place], [place] [address]Dr. Farhat Elvis AST [Catalytic activity/Vol] 31 U/L Normal 15-37 [facility] [facility] Comment on above: Performed By: #### C MP ####[facility] [address] [place], [place] [address]Dr. Farhat Elvis Bilirubin [Mass/Vol] 0.3 mg/dL Normal 0.2-1.0 [facility] Comment on above: Performed By: #### C MP ####[facility] Dadjazlvdp[address] [place], [place] [address]Dr. Farhat Elvis Calcium [Mass/Vol] 8.2 mg/dL Critically low 8.5-10.1 [facility] Comment on above: Performed By: #### C MP ####[facility] Ytufuxogex[address] [place], [place] [address]Dr. Farhat Elvis Chloride [Moles/Vol] 106 mmol/L Normal 98-107 [facility] Comment on above: Performed By: #### C MP ####[facility] Kcnrjqarzn[address] [place], [place] [address]Dr. Frahat Leal CO2 [Moles/Vol] 27.0 mmol/L Normal 21.0-32.0 [facility] Comment on above: Performed By: #### C MP ####[facility] Baorjqckxe7[address] [place], [place] [address]Dr. Madelynlorri Leal Creatinine [Mass/Vol] 1.51 mg/dL Critically high 0.70-1.30 [facility] Comment on above: Performed By: #### C MP ####[facility] [address] [place] [address]Dr. Farhat Elvis EGFR-AF JORDANIAN 55 mL/min/1.73m2 Critically low >=60 [facility] Comment on above: Performed By: #### C MP ####[facility] Dgidvhyyib[address] [place] [address]Dr. Farhat Elvis EGFR-NON AF JORDANIAN 45 mL/min/1.73m2 Critically low >=60 [facility] Comment on above: Performed By: #### C MP ####[facility] Uuvownzlhn[address] [place], [place] [address]Dr. Farhat Leal Globulin (S) [Mass/Vol] 3.2 g/dL Normal [facility] Comment on above: Performed By: #### C MP ####[facility] Ctsxlttbga[address] [place], [place] [address]Dr. Farhat Leal Glucose [Mass/Vol] 165 mg/dL Critically high 74-106 [facility] Comment on above: Performed By: #### C MP ####[facility] Xtixqhclqc[address] [place], [place] [address]Dr. Farhat Leal Potassium [Moles/Vol] 4.1 mmol/L Normal 3.5-5.1 [facility] Comment on above: Performed By: #### C MP ####[facility] Hjjqdmrelp[address] [place], [place] [address]Dr. Farhat Leal Protein [Mass/Vol] 5.7 g/dL Critically low 6.4-8.2 [facility] Comment on above: Performed By: #### C MP ####[facility] Hfluxrbhaa8[address] [place], [place] [address]Dr. Farhat Leal Sodium [Moles/Vol] 138 mmol/L Normal 136-145 [facility] Comment on above: Performed By: #### C MP ####[facility] Qohvjhtejk9264[address] [place], [place] [address]Dr. Farhat Leal Urea nitrogen [Mass/Vol] 51.0 mg/dL Critically high 7.0-18.0 [facility] Comment on above: Performed By: #### C MP ####[facility] Yatsplomrm[address] [place] [address]Dr. Farhat Leal Urea nitrogen/Creatinine [Mass ratio] 33.8 mg/mg Normal [facility] Comment on above: Performed By: #### C MP ####[facility] Lgogzhiecz47[address] [place], [place] [address]Dr. Farhat Leal FK506 (TACROLIMUS) WHOLE BLO ODon 06-15-2022 Tacrolimus (FK506), Blood 16.4 ng/mL Normal 2.0-20.0 [facility] Comment on above: Result Comment: Trou gh (immediately following transplant) 15.0 . Trough (steady state, 2 weeks or more after transplant): 3.0 - 8.0 . Performed by LC-MS/MS technology. Performed By: #### F K506T ####[facility] Qjgcvrgwlv[address] [place], [place] [address]Dr. Farhat Leal PROTIMEon 06-15-2022 INR Coag (PPP) [Relative time] 1.64 {INR} Normal [facility] Comment on above: Performed By: #### P T ####[facility] Bcxotitfjm7[address] [place], [place] [address]Dr. Farhat Leal INR GUIDELINES SEE BELOW Normal [facility] Comment on above: Result Comment: MALINA RED INR: 2.0 - 3.0 CONDITIONS NOT LISTED BELOW 2.5 - 3.5 FOR PROSTHETIC HEART VALVE REPLACEMENT 2.5 - 3.5 RECURRENT THROMBOSIS Performed By: #### P T ####[facility] Zumfbactzh01[address] [place], [place] [address]Dr. Farhat Leal PT Coag (PPP) [Time] 16.9 s Critically high 9.0-11.6 [facility] Comment on above: Performed By: #### P T ####[facility] Qeilpbyvmm0[address] [place], [place] [address]Dr. Farhat Leal CBC AUTO DIFFon 06-12-2022 BASO # 0.0 103/ul Normal 0.0-0.1 [facility] Comment on above: Performed By: #### C BC ####[facility] Vbjnblauqd48[address] [place] [address]Dr. Farhat Leal Basophils/100 WBC (Bld) 0.4 % Normal 0.2-2.0 [facility] Comment on above: Performed By: #### C BC ####[facility] Rzfxeaszud[address] [place], [place] [address]Dr. Farhat Leal EO # 0.4 103/ul Normal 0.0-0.7 [facility] Comment on above: Performed By: #### C BC ####[facility] Avnjaenbtt20[address] [place], [place] [address]Dr. Farhat Lael Eosinophils/100 WBC (Bld) 5.4 % Normal 0.9-7.0 [facility] Comment on above: Performed By: #### C BC ####[facility] Yircozgqqb80[address] [place], [place] [address]Dr. Farhat Leal Erythrocyte distribution width (RBC) [Ratio] 14.7 % Normal 11.0-15.0 [facility] Comment on above: Performed By: #### C BC ####[facility] Ithfsjvcwi[address] [place], [place] [address]Dr. Farhat Leal Hematocrit (Bld) [Volume fraction] 34.8 % Critically low 42.0-54.0 [facility] Comment on above: Performed By: #### C BC ####[facility] Rwzteyjsfi[address] [place], [place] [address]Dr. Farhat Leal Hemoglobin (Bld) [Mass/Vol] 11.7 g/dL Critically low 14.0-18.0 [facility] Comment on above: Performed By: #### C BC ####[facility] Jgivphnzum[address] [place], [place] [address]Dr. Farhat Leal IG # 0.02 10e3/ul Normal 0.00-0.03 [facility] Comment on above: Performed By: #### C BC ####[facility] Vrzijfvnbc[address] [place], [place] [address]Dr. Farhat Leal IG % 0.3 % Normal 0.0-0.5 [facility] Comment on above: Performed By: #### C BC ####[facility] P[address]ctickvi22[address] [place] [id number]. Farhat Leal LYMPH # 2.5 103/ul Normal 1.2-3.8 [facility] Comment on above: Performed By: #### C BC ####[facility] Ftfebimfaa6[address] [place] [address]Dr. Farhat Leal Lymphocytes/100 WBC (Bld) 36.8 % Normal 20.5-60.0 [facility] Comment on above: Performed By: #### C BC ####[facility] Wearwzgbze[address] [place] [address]Dr. Farhat Leal MANUAL DIFF REQ NO Normal [facility] Comment on above: Performed By: #### C BC ####[facility] Xmxbnbhwst5849 [place] [id number]. Farhat Leal MCH (RBC) [Entitic mass] 30.9 pg Normal 25.9-34.0 [facility] Comment on above: Performed By: #### C BC ####[facility] Wygixaclrf6099 [place] [address]Dr. Farhat Leal MCHC (RBC) [Mass/Vol] 33.6 g/dL Normal 29.9-35.2 [facility] Comment on above: Performed By: #### C BC ####[facility] G[address] [place], [place] [id number]. Farhat Leal MCV (RBC) [Entitic vol] 91.8 fL Normal 80.0-94.0 [facility] Comment on above: Performed By: #### C BC ####[facility] Hnlkpxwivm68[address] [place] [address]DrSkylar Leal MONO # 0.8 103/ul Normal 0.3-0.8 [facility] Comment on above: Performed By: #### C BC ####[facility] Jbruhwwxqv7468 [place] [address]Dr. Farhat Leal Monocytes/100 WBC (Bld) 11.9 % Normal 1.7-12.0 [facility] Comment on above: Performed By: #### C BC ####[facility] E[address]lshtrvwg34[address] [place] [address]Dr. Farhat Leal NEUT # 3.1 103/ul Normal 1.4-6.5 [facility] Comment on above: Performed By: #### C BC ####[facility] Pkqvrpkoaa9222 [place] [address]Dr. Farhat Leal Neutrophils/100 WBC (Bld) 45.2 % Normal 43.0-75.0 [facility] Comment on above: Performed By: #### C BC ####[facility] Jcswamtudd80[address] [place] [address]Dr. Farhat Leal Platelet mean volume (Bld) [Entitic vol] 10.5 fL Normal 9.5-13.5 [facility] Comment on above: Performed By: #### C BC ####[facility] Iawglfuyqn5916 [place] [address]Dr. Farhat Leal PLT 175 103/ul Normal 150-450 [facility] Comment on above: Performed By: #### C BC ####[facility] [address] [place], [place] [address]Dr. Farhat Leal RBC 3.79 106/ul Critically low 4.70-6.10 [facility] Comment on above: Performed By: #### C BC ####[facility] Vlyvibvqem6360 [place] [address]Dr. Farhat Leal WBC 6.8 103/ul Normal 4.0-11.0 [facility] Comment on above: Performed By: #### C BC ####[facility] Glcqqoxbux99[address] [place] [id number]. Farhat Leal MAGNESIUMon 06-12-2022 Magnesium [Mass/Vol] 1.6 mg/dL Critically low 1.8-2.4 [facility] Comment on above: Performed By: #### C MP, MG, PHOS ####[facility] Uqmrobkwpi[address] [place] [address]Dr. Farhat Leal PHOSPHORUSon 06-12-2022 Phosphate [Mass/Vol] 3.8 mg/dL Normal 2.6-4.7 [facility] Comment on above: Performed By: #### C MP, MG, PHOS ####[facility] Uqpkgnawlb66[address] [place] [address]Dr. Farhat Leal PROF 14(COMP METB)on 023 Albumin [Mass/Vol] 2.6 g/dL Critically low 3.4-5.0 [facility] Comment on above: Performed By: #### C MP, MG, PHOS ####[facility] Nnkowdjvxc87[address] [place] [address]Dr. Farhat Leal Albumin/Globulin [Mass ratio] 0.8 {ratio} Normal [facility] Comment on above: Performed By: #### C MP, MG, PHOS ####[facility] Zsocqklqft1526 [place] [address]Dr. Farhat Leal ALP [Catalytic activity/Vol] 64 U/L Normal 46-116 [facility] Comment on above: Performed By: #### C MP, MG, PHOS ####[facility] Yrvpwzdxjf7183 [place] [address]Dr. Farhat Leal ALT [Catalytic activity/Vol] 18 U/L Normal 16-63 [facility] Comment on above: Performed By: #### C MP, MG, PHOS ####[facility] Hqgyeqpksj2194 [place] [address]Dr. Farhat Leal Anion gap [Moles/Vol] 12.9 mmol/L Normal [facility] Comment on above: Performed By: #### C MP, MG, PHOS ####[facility] Cqqcxmsuzr1370 [place] [address]Dr. Farhat Leal AST [Catalytic activity/Vol] 18 U/L Normal 15-37 [facility] Comment on above: Performed By: #### C MP, MG, PHOS ####[facility] Tzysraaxda39[address] [place] [address]Dr. Farhat Leal Bilirubin [Mass/Vol] 0.4 mg/dL Normal 0.2-1.0 [facility] Comment on above: Performed By: #### C MP, MG, PHOS ####[facility] Afgcppgtew5297 [place] [address]Dr. Farhat Leal Calcium [Mass/Vol] 8.7 mg/dL Normal 8.5-10.1 [facility] Comment on above: Performed By: #### C MP, MG, PHOS ####[facility] Bmbilfnbrd[address] [place], [place] [address]Dr. Farhat Leal Chloride [Moles/Vol] 105 mmol/L Normal 98-107 [facility] Comment on above: Performed By: #### C MP, MG, PHOS ####[facility] Qyhpbxzjxo[address] [place], [place] [address]Dr. Farhat Leal CO2 [Moles/Vol] 27.9 mmol/L Normal 21.0-32.0 [facility] Comment on above: Performed By: #### C MP, MG, PHOS ####[facility] Mtxobkduvz[address] [place], [place] [address]Dr. Farhat Leal Creatinine [Mass/Vol] 1.53 mg/dL Critically high 0.70-1.30 [facility] Comment on above: Performed By: #### C MP, MG, PHOS ####[facility] V[address]fkamvsaf[address] [place], [place] [address]Dr. Farhat Leal EGFR-AF JORDANIAN 54 mL/min/1.73m2 Critically low >=60 [facility] Comment on above: Performed By: #### C MP, MG, PHOS ####[facility] Grzhobcvgz[address] [place], [place] [address]Dr. Farhat Leal EGFR-NON AF JORDANIAN 44 mL/min/1.73m2 Critically low >=60 [facility] Comment on above: Performed By: #### C MP, MG, PHOS ####[facility] Zncmpmxsnl[address] [place], [place] [address]Dr. Farhat Leal Globulin (S) [Mass/Vol] 3.4 g/dL Normal [facility] Comment on above: Performed By: #### C MP, MG, PHOS ####[facility] Xtdwahjkjr4188 [place] [address]Dr. Farhat Leal Glucose [Mass/Vol] 179 mg/dL Critically high 74-106 [facility] Comment on above: Performed By: #### C MP, MG, PHOS ####[facility] Zofqvfmrhx1219 [place] [address]Dr. Farhat Leal Potassium [Moles/Vol] 3.8 mmol/L Normal 3.5-5.1 [facility] Comment on above: Performed By: #### C MP, MG, PHOS ####[facility] Mulfbzdilj9811 [place] [address]Dr. Farhat Leal Protein [Mass/Vol] 6.0 g/dL Critically low 6.4-8.2 [facility] Comment on above: Performed By: #### C MP, MG, PHOS ####[facility] Kuxvwklocr4094 [place] [address]Dr. Farhat Leal Sodium [Moles/Vol] 142 mmol/L Normal 136-145 [facility] Comment on above: Performed By: #### C MP, MG, PHOS ####[facility] Nrhdzmrncf5785 [place] [address]Dr. Farhat Leal Urea nitrogen [Mass/Vol] 56.0 mg/dL Critically high 7.0-18.0 [facility] Comment on above: Performed By: #### C MP, MG, PHOS ####[facility] Yqgpdmslij[address] [place], [place] [address]Dr. Farhat Leal Urea nitrogen/Creatinine [Mass ratio] 36.6 mg/mg Normal [facility] Comment on above: Performed By: #### C MP, MG, PHOS ####[facility] Xnraxxbxlo3908 [place] [address]Dr. Farhat Leal FK506 (TACROLIMUS) WHOLE BLO ODon 06-08-2022 Tacrolimus (FK506), Blood 13.2 ng/mL Normal 2.0-20.0 [facility] Comment on above: Result Comment: Trou gh (immediately following transplant) 15.0 . Trough (steady state, 2 weeks or more after transplant): 3.0 - 8.0 . Performed by LC-MS/MS technology. Performed By: #### F K506T ####[facility] Zdlfnmbxmt5805 [place] [address]Dr. Farhat Elvis CBC AUTO DIFFon 06-05-2022 BASO # 0.1 103/ul Normal 0.0-0.1 [facility] Comment on above: Performed By: #### C BC ####[facility] Q[address]zrivtzte[address] [place], [place] [address]DrSkylar Leal Basophils/100 WBC (Bld) 0.8 % Normal 0.2-2.0 [facility] Comment on above: Performed By: #### C BC ####[facility] Cfkzjyoyhl[address] [place], [place] [address]Dr. Farhat Leal EO # 0.3 103/ul Normal 0.0-0.7 [facility] Comment on above: Performed By: #### C BC ####[facility] Mpwouwdyxs[address] [place], [place] [address]Dr. Farhat Leal Eosinophils/100 WBC (Bld) 4.7 % Normal 0.9-7.0 [facility] Comment on above: Performed By: #### C BC ####[facility] Tdsvhozdfs14[address] [place], [place] [address]Dr. Farhat Leal Erythrocyte distribution width (RBC) [Ratio] 15.1 % Critically high 11.0-15.0 [facility] Comment on above: Performed By: #### C BC ####[facility] Yxxfqbfbep[address] [place], [place] [address]Dr. Farhat Leal Hematocrit (Bld) [Volume fraction] 35.5 % Critically low 42.0-54.0 [facility] Comment on above: Performed By: #### C BC ####[facility] Afjdkthvbm[address] [place], [place] [address]Dr. Farhat Leal Hemoglobin (Bld) [Mass/Vol] 11.7 g/dL Critically low 14.0-18.0 [facility] Comment on above: Performed By: #### C BC ####[facility] Kbysfsfrgt[address] [place], [place] [address]Dr. Farhat Leal IG # 0.01 10e3/ul Normal 0.00-0.03 [facility] Comment on above: Performed By: #### C BC ####[facility] Apqliuaexa2523 [place] [address]DrSkylar Leal IG % 0.2 % Normal 0.0-0.5 [facility] Comment on above: Performed By: #### C BC ####[facility] Nfcwxyhlik3246 [place] [address]DrSkylar Leal LYMPH # 2.1 103/ul Normal 1.2-3.8 [facility] Comment on above: Performed By: #### C BC ####[facility] Qmvnvexrmt6961 [place] [address]DrSkylar Leal Lymphocytes/100 WBC (Bld) 34.5 % Normal 20.5-60.0 [facility] Comment on above: Performed By: #### C BC ####[facility] Rxjftgmvqa5[address] [place], [place] [address]DrSkylar Leal MANUAL DIFF REQ NO Normal [facility] Comment on above: Performed By: #### C BC ####[facility] Ovxhcpybzr[address] [place], [place] [address]DrSkylar Leal MCH (RBC) [Entitic mass] 30.6 pg Normal 25.9-34.0 [facility] Comment on above: Performed By: #### C BC ####[facility] Eerxlfxgmt0809 [place] [address]DrSkylar Leal MCHC (RBC) [Mass/Vol] 33.0 g/dL Normal 29.9-35.2 [facility] Comment on above: Performed By: #### C BC ####[facility] Gnoshzjpgh0158 [place] [address]DrSkylar Leal MCV (RBC) [Entitic vol] 92.9 fL Normal 80.0-94.0 [facility] Comment on above: Performed By: #### C BC ####[facility] V[address]cdemmqyk[address] [place], [place] [address]DrSkylar Leal MONO # 0.7 103/ul Normal 0.3-0.8 [facility] Comment on above: Performed By: #### C BC ####[facility] Zaobzrgivd4315 [place] [address]Dr. Farhat Leal Monocytes/100 WBC (Bld) 11.4 % Normal 1.7-12.0 [facility] Comment on above: Performed By: #### C BC ####[facility] Eakqjsukaq4[address] [place] [address]Dr. Farhat Leal NEUT # 2.9 103/ul Normal 1.4-6.5 [facility] Comment on above: Performed By: #### C BC ####[facility] Kycnyicqgb4116 [place] [address]Dr. Farhat Leal Neutrophils/100 WBC (Bld) 48.4 % Normal 43.0-75.0 [facility] Comment on above: Performed By: #### C BC ####[facility] Awdconvvxh12[address] [place], [place] [address]Dr. Farhat Leal Platelet mean volume (Bld) [Entitic vol] 10.7 fL Normal 9.5-13.5 [facility] Comment on above: Performed By: #### C BC ####[facility] Alukfhrjgo8[address] [place] [address]Dr. Farhat Leal PLT 185 103/ul Normal 150-450 [facility] Comment on above: Performed By: #### C BC ####[facility] Tjllwanpqm9813 [place] [address]Dr. Farhat Leal RBC 3.82 106/ul Critically low 4.70-6.10 [facility] Comment on above: Performed By: #### C BC ####[facility] Ofiqpjsjfo0785 [place] [id number]. Farhat Leal WBC 6.0 103/ul Normal 4.0-11.0 [facility] Comment on above: Performed By: #### C BC ####[facility] Mozihrmtkc7532 [place] [address]Dr. Farhat Leal MAGNESIUMon 06-05-2022 Magnesium [Mass/Vol] 1.9 mg/dL Normal 1.8-2.4 [facility] Comment on above: Performed By: #### P HOS, MG ####[facility] Civfuzhoea0[address] [place] [address]Dr. Farhat Leal PHOSPHORUSon 06-05-2022 Phosphate [Mass/Vol] 4.4 mg/dL Normal 2.6-4.7 [facility] Comment on above: Performed By: #### P HOS, MG ####[facility] Eqcwdrnmgl1315 [place] [address]DrSkylar Leal PROTIMEon 06-05-2022 INR Coag (PPP) [Relative time] 2.16 {INR} Normal [facility] Comment on above: Performed By: #### P T ####[facility] Xjswiqrqtk[address] [place], [place] [address]DrSkylar Leal INR GUIDELINES SEE BELOW Normal [facility] Comment on above: Result Comment: MALINA RED INR: 2.0 - 3.0 CONDITIONS NOT LISTED BELOW 2.5 - 3.5 FOR PROSTHETIC HEART VALVE REPLACEMENT 2.5 - 3.5 RECURRENT THROMBOSIS Performed By: #### P T ####[facility] Rduezatpqy8[address] [place], [place] [address]DrSkylar Leal PT Coag (PPP) [Time] 21.9 s Critically high 9.0-11.6 [facility] Comment on above: Performed By: #### P T ####[facility] Ftwcvzsfte4[address] [place], [place] [address]DrSkylar Leal FK506 (TACROLIMUS) WHOLE BLO ODon 06-01-2022 Tacrolimus (FK506), Blood 26.4 ng/mL Invalid Interpretation Code 2.0-20.0 [facility] Comment on above: Result Comment: Trou gh (immediately following transplant) 15.0 . Trough (steady state, 2 weeks or more after transplant): 3.0 - 8.0 . Performed by LC-MS/MS technology.Patient drug level exceeds published reference range. Evaluateclinically for signs of potential toxicity. Performed By: #### F K506T ####[facility] R[address]vfwkmik[address] [place], [place] [address]DrSkylar Leal CBC AUTO DIFFon 05-29-2022 BASO # 0.0 103/ul Normal 0.0-0.1 [facility] Comment on above: Performed By: #### C BC ####[facility] Fjyyharehw8756 [place] [address]Dr. Farhat Leal Basophils/100 WBC (Bld) 0.6 % Normal 0.2-2.0 [facility] Comment on above: Performed By: #### C BC ####[facility] Hytxsuqbye0205 [place] [address]Dr. Farhat Leal EO # 0.3 103/ul Normal 0.0-0.7 [facility] Comment on above: Performed By: #### C BC ####[facility] Kxtfthmehr[address] [place], [place] [address]Dr. Farhat Leal Eosinophils/100 WBC (Bld) 4.7 % Normal 0.9-7.0 [facility] Comment on above: Performed By: #### C BC ####[facility] Ggyvezdscj78[address] [place], [place] [address]Dr. Farhat Leal Erythrocyte distribution width (RBC) [Ratio] 15.3 % Critically high 11.0-15.0 [facility] Comment on above: Performed By: #### C BC ####[facility] Ceyiiawhta16[address] [place], [place] [address]Dr. Farhat Leal Hematocrit (Bld) [Volume fraction] 36.6 % Critically low 42.0-54.0 [facility] Comment on above: Performed By: #### C BC ####[facility] H[address]kklxdnm[address] [place], [place] [address]Dr. Farhat Leal Hemoglobin (Bld) [Mass/Vol] 12.3 g/dL Critically low 14.0-18.0 [facility] Comment on above: Performed By: #### C BC ####[facility] Qaaweqlzig[address] [place], [place] [address]Dr. Farhat Leal IG # 0.02 10e3/ul Normal 0.00-0.03 [facility] Comment on above: Performed By: #### C BC ####[facility] Yqspjnhqtk4820 [place] [id number]. Farhat Leal IG % 0.3 % Normal 0.0-0.5 [facility] Comment on above: Performed By: #### C BC ####[facility] Enzrwnlpeb6717 [place] [id number]. Farhat Leal LYMPH # 2.8 103/ul Normal 1.2-3.8 [facility] Comment on above: Performed By: #### C BC ####[facility] Lbdhnwdqky7494 [place] [id number]. Farhat Elvis Lymphocytes/100 WBC (Bld) 44.4 % Normal 20.5-60.0 [facility] Comment on above: Performed By: #### C BC ####[facility] Spzkbngmep9564 [place] [id number]. Farhat Elvis MANUAL DIFF REQ NO Normal [facility] Comment on above: Performed By: #### C BC ####[facility] Khvawrlopp2394 [place] [id number]. Farhat Leal MCH (RBC) [Entitic mass] 30.4 pg Normal 25.9-34.0 [facility] Comment on above: Performed By: #### C BC ####[facility] Nmbnpsmxik8407 [place] [id number]. Farhat Leal MCHC (RBC) [Mass/Vol] 33.6 g/dL Normal 29.9-35.2 [facility] Comment on above: Performed By: #### C BC ####[facility] Gyydwdxwsq4107 [place] [id number]. Farhat Leal MCV (RBC) [Entitic vol] 90.4 fL Normal 80.0-94.0 [facility] Comment on above: Performed By: #### C BC ####[facility] Yqijabpqwf9[address] [place] [address]Dr. Farhat Elvis MONO # 0.7 103/ul Normal 0.3-0.8 [facility] Comment on above: Performed By: #### C BC ####[facility] Ydimwxmwun1748 [place] [address]Dr. Farhat Leal Monocytes/100 WBC (Bld) 10.7 % Normal 1.7-12.0 [facility] Comment on above: Performed By: #### C BC ####[facility] Slzduklmpv1896 [place] [address]Dr. Farhat Leal NEUT # 2.5 103/ul Normal 1.4-6.5 [facility] Comment on above: Performed By: #### C BC ####[facility] Dgogrzdqsf7778 [place] [address]Dr. Farhat Leal Neutrophils/100 WBC (Bld) 39.3 % Critically low 43.0-75.0 [facility] Comment on above: Performed By: #### C BC ####[facility] Mahlycwach1908 [place] [address]Dr. Farhat Leal Platelet mean volume (Bld) [Entitic vol] 10.5 fL Normal 9.5-13.5 [facility] Comment on above: Performed By: #### C BC ####[facility] Ejpedfnrco4172 [place] [address]Dr. Farhat Leal PLT 190 103/ul Normal 150-450 [facility] Comment on above: Performed By: #### C BC ####[facility] Pzmpgidlos0712 [place] [address]Dr. Farhat Leal RBC 4.05 106/ul Critically low 4.70-6.10 [facility] Comment on above: Performed By: #### C BC ####[facility] Melcsvslxg0028 [place] [address]Dr. Farhat Leal WBC 6.4 103/ul Normal 4.0-11.0 [facility] Comment on above: Performed By: #### C BC ####[facility] Gziftylgay1446 [place] [address]Dr. Farhat Elvis PROF 14(COMP METB)on 023 Albumin [Mass/Vol] 2.5 g/dL Critically low 3.4-5.0 [facility] Comment on above: Performed By: #### C MP ####[facility] Puakvjsfpp9348 [place] [address]Dr. Farhat Leal Albumin/Globulin [Mass ratio] 0.8 {ratio} Normal [facility] Comment on above: Performed By: #### C MP ####[facility] Ditzghltfw2305 [place] [address]Dr. Farhat Leal ALP [Catalytic activity/Vol] 61 U/L Normal 46-116 [facility] Comment on above: Performed By: #### C MP ####[facility] Oizwwswkao0420 [place] [address]Dr. Farhat Leal ALT [Catalytic activity/Vol] 16 U/L Normal 16-63 [facility] Comment on above: Performed By: #### C MP ####[facility] Fiimgrvwgh[address] [place], [place] [address]Dr. Farhat Leal Anion gap [Moles/Vol] 12.3 mmol/L Normal [facility] Comment on above: Performed By: #### C MP ####[facility] Iccznrsnzn9[address] [place], [place] [address]Dr. Farhat Leal AST [Catalytic activity/Vol] 18 U/L Normal 15-37 [facility] Comment on above: Performed By: #### C MP ####[facility] Pvorrqekwk[address] [place], [place] [address]Dr. Farhat Leal Bilirubin [Mass/Vol] 0.5 mg/dL Normal 0.2-1.0 [facility] Comment on above: Performed By: #### C MP ####[facility] Iykejxhphi86[address] [place], [place] [address]Dr. Farhat Elvis Calcium [Mass/Vol] 8.6 mg/dL Normal 8.5-10.1 [facility] Comment on above: Performed By: #### C MP ####[facility] Qdufygwwpr554[address] [place], [place] [address]Dr. Farhat Elvis Chloride [Moles/Vol] 105 mmol/L Normal 98-107 [facility] Comment on above: Performed By: #### C MP ####[facility] Adnvbfzyoq1466[address] [place], [place] [address]Dr. Farhat Leal CO2 [Moles/Vol] 28.6 mmol/L Normal 21.0-32.0 [facility] Comment on above: Performed By: #### C MP ####[facility] Tomrfnboau9038 [place] [address]Dr. Farhat Leal Creatinine [Mass/Vol] 1.47 mg/dL Critically high 0.70-1.30 [facility] Comment on above: Performed By: #### C MP ####[facility] Ujhzsfjnbj7146 [place] [address]Dr. Farhat Leal EGFR-AF JORDANIAN 56 mL/min/1.73m2 Critically low >=60 [facility] Comment on above: Performed By: #### C MP ####[facility] Fmuhmityot4366 [place] [address]Dr. Farhat Leal EGFR-NON AF JORDANIAN 46 mL/min/1.73m2 Critically low >=60 [facility] Comment on above: Performed By: #### C MP ####[facility] Kbbtkqucxt8583 [place] [address]Dr. Farhat Elvis Globulin (S) [Mass/Vol] 3.3 g/dL Normal [facility] Comment on above: Performed By: #### C MP ####[facility] Tfxxsaqsgf2704 [place] [address]Dr. Farhat Leal Glucose [Mass/Vol] 164 mg/dL Critically high 74-106 T [facility] Comment on above: Performed By: #### C MP ####[facility] Pkrxcysodx8617 [place] [address]Dr. Farhat Elvis Potassium [Moles/Vol] 3.9 mmol/L Normal 3.5-5.1 [facility] Comment on above: Performed By: #### C MP ####[facility] Rzkzragepu4856 [place] [address]Dr. Farhat Elvis Protein [Mass/Vol] 5.8 g/dL Critically low 6.4-8.2 [facility] Comment on above: Performed By: #### C MP ####[facility] Ymrbjkfiki2712 [place] [address]Dr. Farhat Leal Sodium [Moles/Vol] 142 mmol/L Normal 136-145 [facility] Comment on above: Performed By: #### C MP ####[facility] Pbvpxxduch5352 [place] [address]Dr. Farhat Leal Urea nitrogen [Mass/Vol] 53.0 mg/dL Critically high 7.0-18.0 [facility] Comment on above: Performed By: #### C MP ####[facility] Tipwossgje5[address] [place], [place] [address]Dr. Farhat Leal Urea nitrogen/Creatinine [Mass ratio] 36.1 mg/mg Normal [facility] Comment on above: Performed By: #### C MP ####[facility] Fgwgekddze7918 [place] [address]Dr. Farhat Leal PROTIMEon 05-29-2022 INR Coag (PPP) [Relative time] 2.41 {INR} Normal [facility] Comment on above: Performed By: #### P T ####[facility] Xvxmuisgmv937[address] [place], [place] [address]Dr. Farhat Leal INR GUIDELINES SEE BELOW Normal [facility] Comment on above: Result Comment: MALINA RED INR: 2.0 - 3.0 CONDITIONS NOT LISTED BELOW 2.5 - 3.5 FOR PROSTHETIC HEART VALVE REPLACEMENT 2.5 - 3.5 RECURRENT THROMBOSIS Performed By: #### P T ####[facility] Skgcbyvepp9[address] [place], [place] [address]Dr. Farhat Leal PT Coag (PPP) [Time] 24.3 s Critically high 9.0-11.6 [facility] Comment on above: Performed By: #### P T ####[facility] Vnutbmozcy088[address] [place], [place] [address]Dr. aFrhat Leal FK506 (TACROLIMUS) WHOLE BLO ODon 05-25-2022 Tacrolimus (FK506), Blood 5.1 ng/mL Normal 2.0-20.0 The [facility] Comment on above: Result Comment: Trou gh (immediately following transplant) 15.0 . Trough (steady state, 2 weeks or more after transplant): 3.0 - 8.0 . Performed by LC-MS/MS technology. Performed By: #### F K506T ####[facility] Fgjhsyzyii6824 [place] [address]Dr. Farhat Leal CBC AUTO DIFFon 05-22-2022 BASO # 0.0 103/ul Normal 0.0-0.1 [facility] Comment on above: Performed By: #### C BC ####[facility] Uevpiqcdhx3[address] [place], [place] [address]Dr. Farhat Elvis Basophils/100 WBC (Bld) 0.5 % Normal 0.2-2.0 [facility] Comment on above: Performed By: #### C BC ####[facility] Qwkajpnmdv1177[address] [place], [place] [address]Dr. Farhat Leal EO # 0.2 103/ul Normal 0.0-0.7 [facility] Comment on above: Performed By: #### C BC ####[facility] Oajmvbuuog060[address] [place], [place] [address]Dr. Madelynlorri Leal Eosinophils/100 WBC (Bld) 4.0 % Normal 0.9-7.0 [facility] Comment on above: Performed By: #### C BC ####[facility] Dqsrjeaemi224[address] [place], [place] [address]Dr. Farhat Leal Erythrocyte distribution width (RBC) [Ratio] 15.5 % Critically high 11.0-15.0 [facility] Comment on above: Performed By: #### C BC ####[facility] Macbzqshpe6520[address] [place], [place] [address]Dr. Farhat Leal Hematocrit (Bld) [Volume fraction] 34.1 % Critically low 42.0-54.0 [facility] Comment on above: Performed By: #### C BC ####[facility] Jjviaopfxp8063[address] [place], [place] [address]Dr. Farhat Leal Hemoglobin (Bld) [Mass/Vol] 11.3 g/dL Critically low 14.0-18.0 [facility] Comment on above: Performed By: #### C BC ####[facility] Qmzlirnnff[address] [place], [place] [id number]. Farhat Leal IG # 0.03 10e3/ul Normal 0.00-0.03 [facility] Comment on above: Performed By: #### C BC ####[facility] Iztusmuvzx4918 [place] [address]Dr. Farhat Leal IG % 0.5 % Normal 0.0-0.5 [facility] Comment on above: Performed By: #### C BC ####[facility] Cctoqdqsjx9755 [place] [address]DrSkylar Leal LYMPH # 2.1 103/ul Normal 1.2-3.8 [facility] Comment on above: Performed By: #### C BC ####[facility] Xeemmppfvh55[address] [place], [place] [address]DrSkylar Leal Lymphocytes/100 WBC (Bld) 34.6 % Normal 20.5-60.0 [facility] Comment on above: Performed By: #### C BC ####[facility] Yravephate5499[address] [place], [place] [address]DrSkylar Leal MANUAL DIFF REQ NO Normal [facility] Comment on above: Performed By: #### C BC ####[facility] Vuxnloixwq44[address] [place], [place] [address]DrSkylar Leal MCH (RBC) [Entitic mass] 30.3 pg Normal 25.9-34.0 [facility] Comment on above: Performed By: #### C BC ####[facility] Wlnytunnwn75[address] [place], [place] [address]DrSkylar Leal MCHC (RBC) [Mass/Vol] 33.1 g/dL Normal 29.9-35.2 [facility] Comment on above: Performed By: #### C BC ####[facility] Suvwtnnnuj9[address] [place], [place] [address]DrSkylar Leal MCV (RBC) [Entitic vol] 91.4 fL Normal 80.0-94.0 [facility] Comment on above: Performed By: #### C BC ####[facility] Mdbzapxedm9255[address] [place], [place] [address]DrSkylar Leal MONO # 0.7 103/ul Normal 0.3-0.8 [facility] Comment on above: Performed By: #### C BC ####[facility] Arhdoxizvk8429 [place] [address]Dr. Farhat Leal Monocytes/100 WBC (Bld) 11.6 % Normal 1.7-12.0 [facility] Comment on above: Performed By: #### C BC ####[facility] Rbaqzijdcg1605 [place] [address]Dr. Farhat Leal NEUT # 2.9 103/ul Normal 1.4-6.5 [facility] Comment on above: Performed By: #### C BC ####[facility] Gaezsyydwk0387 [place] [address]DrSkylar Farhat Leal Neutrophils/100 WBC (Bld) 48.8 % Normal 43.0-75.0 [facility] Comment on above: Performed By: #### C BC ####[facility] Opwftypnnb9[address] [place], [place] [address]DrSkylar Farhat Leal Platelet mean volume (Bld) [Entitic vol] 10.9 fL Normal 9.5-13.5 [facility] Comment on above: Performed By: #### C BC ####[facility] Glcmsjitli480[address] [place], [place] [address]Dr. Farhat Leal PLT 186 103/ul Normal 150-450 [facility] Comment on above: Performed By: #### C BC ####[facility] Ovnkkgcpjd6892 [place] [id number] Farhat Leal RBC 3.73 106/ul Critically low 4.70-6.10 [facility] Comment on above: Performed By: #### C BC ####[facility] Nrpyyschzd3719 [place] [id number] Farhat Leal WBC 6.0 103/ul Normal 4.0-11.0 [facility] Comment on above: Performed By: #### C BC ####[facility] Lbpvzhtssl88[address] [place], [place] [address]DrSkylar Leal PROF 14(COMP METB)on 023 Albumin [Mass/Vol] 2.7 g/dL Critically low 3.4-5.0 [facility] Comment on above: Performed By: #### C MP ####[facility] Fubeuxjqyz5965 [place] [address]Dr. Farhat Leal Albumin/Globulin [Mass ratio] 0.8 {ratio} Normal [facility] Comment on above: Performed By: #### C MP ####[facility] Rjdwhkilek79[address] [place], [place] [address]Dr. Farhat Leal ALP [Catalytic activity/Vol] 60 U/L Normal 46-116 [facility] Comment on above: Performed By: #### C MP ####[facility] Izktfcxjge598[address] [place], [place] [address]Dr. Farhat Leal ALT [Catalytic activity/Vol] 17 U/L Normal 16-63 [facility] Comment on above: Performed By: #### C MP ####[facility] Hisxxnlfyi6996[address] [place], [place] [address]Dr. Farhat Leal Anion gap [Moles/Vol] 9.6 mmol/L Normal [facility] Comment on above: Performed By: #### C MP ####[facility] Egxdlruxau4797[address] [place], [place] [address]Dr. Farhat Leal AST [Catalytic activity/Vol] 14 U/L Critically low 15-37 [facility] Comment on above: Performed By: #### C MP ####[facility] Mblpvmcvup7[address] [place], [place] [address]Dr. Farhat Leal Bilirubin [Mass/Vol] 0.5 mg/dL Normal 0.2-1.0 [facility] Comment on above: Performed By: #### C MP ####[facility] Hxnwfpagha6814[address] [place], [place] [address]Dr. Farhat Leal Calcium [Mass/Vol] 8.4 mg/dL Critically low 8.5-10.1 Th [facility] Comment on above: Performed By: #### C MP ####[facility] Dwtudmfexx0332[address] [place], [place] [address]Dr. Farhat Leal Chloride [Moles/Vol] 104 mmol/L Normal 98-107 [facility] Comment on above: Performed By: #### C MP ####[facility] Myuyavlblz1952 [place] [address]Dr. Farhat Leal CO2 [Moles/Vol] 27.2 mmol/L Normal 21.0-32.0 [facility] Comment on above: Performed By: #### C MP ####[facility] Gpjsutxxxb1121 [place] [address]Dr. Farhat Elvis Creatinine [Mass/Vol] 1.24 mg/dL Normal 0.70-1.30 The [facility] Comment on above: Performed By: #### C MP ####[facility] Wjsupnsoir9032[address] [place], [place] [address]Dr. Farhat Elvis EGFR-AF JORDANIAN >60 Normal >=60 [facility] Comment on above: Performed By: #### C MP ####[facility] Pwfuxjvrxz3913 [place] [address]Dr. Farhat Elvis EGFR-NON AF JORDANIAN 57 mL/min/1.73m2 Critically low >=60 The [facility] Comment on above: Performed By: #### C MP ####[facility] Swcuwlsxcg8011 [place] [address]Dr. Farhat Elvis Globulin (S) [Mass/Vol] 3.3 g/dL Normal [facility] Comment on above: Performed By: #### C MP ####[facility] Tsfbtnmjvi9028 [place] [address]Dr. Farhat Elvis Glucose [Mass/Vol] 275 mg/dL Critically high 74-106 [facility] Comment on above: Performed By: #### C MP ####[facility] Aeyeoeqnsk9402 [place] [address]Dr. Farhat Elvis Potassium [Moles/Vol] 3.8 mmol/L Normal 3.5-5.1 The [facility] Comment on above: Performed By: #### C MP ####[facility] Iydxjbzfxq7245 [place] [address]Dr. Madelynlorri Leal Protein [Mass/Vol] 6.0 g/dL Critically low 6.4-8.2 Th e [facility] Comment on above: Performed By: #### C MP ####[facility] Avwkcekruv2396 [place] [address]Dr. Farhat Leal Sodium [Moles/Vol] 137 mmol/L Normal 136-145 [facility] Comment on above: Performed By: #### C MP ####[facility] Jjagtatyuc268[address] [place], [place] [address]Dr. Farhat Leal Urea nitrogen [Mass/Vol] 54.0 mg/dL Critically high 7.0-18.0 [facility] Comment on above: Performed By: #### C MP ####[facility] Esllaguxsb3714[address] [place], [place] [address]Dr. Farhat Leal Urea nitrogen/Creatinine [Mass ratio] 43.5 mg/mg Normal [facility] Comment on above: Performed By: #### C MP ####[facility] Bafrujqquw9[address] [place], [place] [address]Dr. Farhat Leal PROTIMEon 05-22-2022 INR Coag (PPP) [Relative time] 2.27 {INR} Normal [facility] Comment on above: Performed By: #### P T ####[facility] Jubvehqvfh18[address] [place], [place] [address]Dr. Farhat Leal INR GUIDELINES SEE BELOW Normal [facility] Comment on above: Result Comment: MALINA RED INR: 2.0 - 3.0 CONDITIONS NOT LISTED BELOW 2.5 - 3.5 FOR PROSTHETIC HEART VALVE REPLACEMENT 2.5 - 3.5 RECURRENT THROMBOSIS Performed By: #### P T ####[facility] Zyxjtwnzii3123[address] [place], [place] [address]Dr. Farhat Leal PT Coag (PPP) [Time] 23.0 s Critically high 9.0-11.6 [facility] Comment on above: Performed By: #### P T ####[facility] Ttsgdhbvqq475[address] [place], [place] [address]Dr. Farhat Leal FK506 (TACROLIMUS) WHOLE BLO ODon 05-19-2022 Tacrolimus (FK506), Blood 7.8 ng/mL Normal 2.0-20.0 [facility] Comment on above: Result Comment: Trou gh (immediately following transplant) 15.0 . Trough (steady state, 2 weeks or more after transplant): 3.0 - 8.0 . Performed by LC-MS/MS technology. Performed By: #### F K506T ####[facility] Fanekugzhm46[address] [place], [place] [address]Dr. Farhat Leal CBC AUTO DIFFon 05-15-2022 BASO # 0.0 103/ul Normal 0.0-0.1 [facility] Comment on above: Performed By: #### C BC ####[facility] Fogslhenxo[address] [place], [place] [address]Dr. Farhat Leal Basophils/100 WBC (Bld) 0.4 % Normal 0.2-2.0 The [facility] Comment on above: Performed By: #### C BC ####[facility] Aaypeeippg9[address] [place], [place] [address]Dr. Frahat Leal EO # 0.2 103/ul Normal 0.0-0.7 The [facility] Comment on above: Performed By: #### C BC ####[facility] Cczgdmgfwp48[address] [place], [place] [address]Dr. Farhat Leal Eosinophils/100 WBC (Bld) 3.0 % Normal 0.9-7.0 The [facility] Comment on above: Performed By: #### C BC ####[facility] Nkfqaoznyn17[address] [place], [place] [address]Dr. Farhat Leal Erythrocyte distribution width (RBC) [Ratio] 15.7 % Critically high 11.0-15.0 [facility] Comment on above: Performed By: #### C BC ####[facility] Kyqvtsvqxb4[address] [place], [place] [address]Dr. Farhat Leal Hematocrit (Bld) [Volume fraction] 36.8 % Critically low 42.0-54.0 The [facility] Comment on above: Performed By: #### C BC ####[facility] Wbqsknloxn60[address] [place], [place] [address]Dr. Farhat Leal Hemoglobin (Bld) [Mass/Vol] 12.4 g/dL Critically low 14.0-18.0 [facility] Comment on above: Performed By: #### C BC ####[facility] Eocdnnufhr5827 [place] [address]Dr. Farhat Leal IG # 0.01 10e3/ul Normal 0.00-0.03 [facility] Comment on above: Performed By: #### C BC ####[facility] Gmnqaiqsvv0891 [place] [address]Dr. Farhat Leal IG % 0.1 % Normal 0.0-0.5 [facility] Comment on above: Performed By: #### C BC ####[facility] Csmuphmhwg1687 [place] [address]Dr. Farhat Leal LYMPH # 2.4 103/ul Normal 1.2-3.8 [facility] Comment on above: Performed By: #### C BC ####[facility] Zcpraqbepb8148 [place] [address]DrSkylar Leal Lymphocytes/100 WBC (Bld) 35.6 % Normal 20.5-60.0 [facility] Comment on above: Performed By: #### C BC ####[facility] Ljiooyajno8102 [place] [address]DrSkylar Leal MANUAL DIFF REQ NO Normal [facility] Comment on above: Performed By: #### C BC ####[facility] Tyqjqojgbw9823 [place] [address]Dr. Farhat Leal MCH (RBC) [Entitic mass] 30.1 pg Normal 25.9-34.0 [facility] Comment on above: Performed By: #### C BC ####[facility] Lqhafwlhta5234 [place] [address]Dr. Farhat Leal MCHC (RBC) [Mass/Vol] 33.7 g/dL Normal 29.9-35.2 [facility] Comment on above: Performed By: #### C BC ####[facility] Qpakdaxwjf7327 [place] [address]Dr. Farhat Leal MCV (RBC) [Entitic vol] 89.3 fL Normal 80.0-94.0 [facility] Comment on above: Performed By: #### C BC ####[facility] Nwkjdjhvek8333 [place] [address]Dr. Farhat Leal MONO # 0.7 103/ul Normal 0.3-0.8 [facility] Comment on above: Performed By: #### C BC ####[facility] Jdhxugkceu1123 [place] [address]Dr. Farhat Leal Monocytes/100 WBC (Bld) 10.8 % Normal 1.7-12.0 [facility] Comment on above: Performed By: #### C BC ####[facility] Txbfrosqpt1105 [place] [address]Dr. Farhat Leal NEUT # 3.4 103/ul Normal 1.4-6.5 [facility] Comment on above: Performed By: #### C BC ####[facility] Tiqzljjeyb5753 [place] [address]Dr. Farhat Leal Neutrophils/100 WBC (Bld) 50.1 % Normal 43.0-75.0 [facility] Comment on above: Performed By: #### C BC ####[facility] Ohnvwbjizu6832 [place] [address]Dr. Farhat Leal Platelet mean volume (Bld) [Entitic vol] 10.2 fL Normal 9.5-13.5 [facility] Comment on above: Performed By: #### C BC ####[facility] Vphnbrkugf0799 [place] [address]Dr. Farhat Leal PLT 190 103/ul Normal 150-450 [facility] Comment on above: Performed By: #### C BC ####[facility] Vqkcgylrgj2082 [place] [address]Dr. Farhta Leal RBC 4.12 106/ul Critically low 4.70-6.10 [facility] Comment on above: Performed By: #### C BC ####[facility] Onlqsfjcri2107 [place] [address]Dr. Farhat Leal WBC 6.8 103/ul Normal 4.0-11.0 [facility] Comment on above: Performed By: #### C BC ####[facility] Qpfxvxxxjp6379 [place] [address]Dr. Farhat Leal PROF 14(COMP METB)on 023 Albumin [Mass/Vol] 2.8 g/dL Critically low 3.4-5.0 [facility] Comment on above: Performed By: #### C MP ####[facility] [address] [place] [address]Dr. Farhat Leal Albumin/Globulin [Mass ratio] 0.9 {ratio} Normal [facility] Comment on above: Performed By: #### C MP ####[facility] Fpvfusqarn8[address] [place] [address]Dr. Farhat Leal ALP [Catalytic activity/Vol] 66 U/L Normal 46-116 [facility] Comment on above: Performed By: #### C MP ####[facility] Qvjaksqbqd[address] [place], [place] [address]Dr. Farhat Leal ALT [Catalytic activity/Vol] 15 U/L Critically low 16-63 [facility] Comment on above: Performed By: #### C MP ####[facility] Sosqsanpul[address] [place], [place] [address]Dr. Farhat Leal Anion gap [Moles/Vol] 11.1 mmol/L Normal [facility] Comment on above: Performed By: #### C MP ####[facility] Tdrgeonuky[address] [place], [place] [address]Dr. Farhat Leal AST [Catalytic activity/Vol] 14 U/L Critically low 15-37 [facility] Comment on above: Performed By: #### C MP ####[facility] Pugilplkfh18[address] [place], [place] [address]Dr. Farhat Leal Bilirubin [Mass/Vol] 0.8 mg/dL Normal 0.2-1.0 [facility] Comment on above: Performed By: #### C MP ####[facility] Ynxjyfuohh[address] [place], [place] [address]Dr. Farhat Leal Calcium [Mass/Vol] 8.9 mg/dL Normal 8.5-10.1 [facility] Comment on above: Performed By: #### C MP ####[facility] Rixadusaii[address] [place] [address]Dr. Farhat Leal Chloride [Moles/Vol] 101 mmol/L Normal 98-107 [facility] Comment on above: Performed By: #### C MP ####[facility] Fomxxwiunt2209 [place] [id number]. Farhat Leal CO2 [Moles/Vol] 28.2 mmol/L Normal 21.0-32.0 [facility] Comment on above: Performed By: #### C MP ####[facility] Aorllrkjav99[address] [place] [address]Dr. Farhat Leal Creatinine [Mass/Vol] 1.23 mg/dL Normal 0.70-1.30 [facility] Comment on above: Performed By: #### C MP ####[facility] Tezzsnjogt57[address] [place] [address]Dr. Farhat Leal EGFR-AF JORDANIAN >60 Normal >=60 [facility] Comment on above: Performed By: #### C MP ####[facility] Vvkmlomukq8257 [place] [address]Dr. Farhat Leal EGFR-NON AF JORDANIAN 57 mL/min/1.73m2 Critically low >=60 [facility] Comment on above: Performed By: #### C MP ####[facility] Rmwlgefocy112[address] [place] [address]Dr. Farhat Leal Globulin (S) [Mass/Vol] 3.2 g/dL Normal [facility] Comment on above: Performed By: #### C MP ####[facility] Kxumdzgarw94[address] [place] [address]Dr. Farhat Leal Glucose [Mass/Vol] 333 mg/dL Critically high 74-106 T [facility] Comment on above: Performed By: #### C MP ####[facility] Ipctkvuhek5813 [place] [address]Dr. Farhat Leal Potassium [Moles/Vol] 4.3 mmol/L Normal 3.5-5.1 [facility] Comment on above: Performed By: #### C MP ####[facility] Ynbeupmhhj5097 [place] [address]Dr. Farhat Leal Protein [Mass/Vol] 6.0 g/dL Critically low 6.4-8.2 Th e [facility] Comment on above: Performed By: #### C MP ####[facility] Tbrxfhnyoy5791 [place] [address]Dr. Farhat Leal Sodium [Moles/Vol] 136 mmol/L Normal 136-145 [facility] Comment on above: Performed By: #### C MP ####[facility] Ixjzcbgwqk8553 [place] [address]Dr. Farhat Leal Urea nitrogen [Mass/Vol] 58.0 mg/dL Critically high 7.0-18.0 [facility] Comment on above: Performed By: #### C MP ####[facility] Odzxgyptvh9[address] [place], [place] [address]Dr. Farhat Leal Urea nitrogen/Creatinine [Mass ratio] 47.2 mg/mg Normal [facility] Comment on above: Performed By: #### C MP ####[facility] Rtugsutldf5[address] [place], [place] [address]Dr. Farhat Leal PROTIMEon 05-13-2022 INR Coag (PPP) [Relative time] 3.51 {INR} Normal [facility] Comment on above: Performed By: #### P T ####[facility] Hthvbqrinh0950[address] [place], [place] [address]Dr. Farhat Leal INR GUIDELINES SEE BELOW Normal [facility] Comment on above: Result Comment: MALINA RED INR: 2.0 - 3.0 CONDITIONS NOT LISTED BELOW 2.5 - 3.5 FOR PROSTHETIC HEART VALVE REPLACEMENT 2.5 - 3.5 RECURRENT THROMBOSIS Performed By: #### P T ####[facility] Ksnenilmab4257[address] [place], [place] [address]Dr. Farhat Leal PT Coag (PPP) [Time] 34.7 s Critically high 9.0-11.6 [facility] Comment on above: Performed By: #### P T ####[facility] Ipoombsjkj057[address] [place], [place] [address]Dr. Farhat Leal FK506 (TACROLIMUS) WHOLE BLO ODon 05-11-2022 Tacrolimus (FK506), Blood 14.4 ng/mL Normal 2.0-20.0 [facility] Comment on above: Result Comment: Trou gh (immediately following transplant) 15.0 . Trough (steady state, 2 weeks or more after transplant): 3.0 - 8.0 . Performed by LC-MS/MS technology. Performed By: #### F K506T ####[facility] Hzmvmfprxn6[address] [place], [place] [address]Dr. Madelynlorri Elvis CBC AUTO DIFFon 05-08-2022 BASO # 0.0 103/ul Normal 0.0-0.1 [facility] Comment on above: Performed By: #### C BC ####[facility] Vqftfbkuzj17[address] [place], [place] [address]Dr. Farhat Leal Basophils/100 WBC (Bld) 0.5 % Normal 0.2-2.0 [facility] Comment on above: Performed By: #### C BC ####[facility] Pcxymnjpmi28[address] [place], [place] [address]Dr. Farhat Leal EO # 0.2 103/ul Normal 0.0-0.7 The [facility] Comment on above: Performed By: #### C BC ####[facility] Wcdokjmhig7968[address] [place], [place] [address]Dr. Farhat Leal Eosinophils/100 WBC (Bld) 2.9 % Normal 0.9-7.0 [facility] Comment on above: Performed By: #### C BC ####[facility] Ltnlhgpmjn5019[address] [place], [place] [address]Dr. Farhat Leal Erythrocyte distribution width (RBC) [Ratio] 16.0 % Critically high 11.0-15.0 [facility] Comment on above: Performed By: #### C BC ####[facility] Hkggbbofsk1963[address] [place], [place] [address]Dr. Farhat Leal Hematocrit (Bld) [Volume fraction] 35.7 % Critically low 42.0-54.0 The [facility] Comment on above: Performed By: #### C BC ####[facility] Tglnbzjqhs3678 [place] [id number]. Farhat Leal Hemoglobin (Bld) [Mass/Vol] 11.9 g/dL Critically low 14.0-18.0 The [facility] Comment on above: Performed By: #### C BC ####[facility] Zzqmykgpjl9895 [place] [address]Dr. Farhat Leal IG # 0.03 10e3/ul Normal 0.00-0.03 [facility] Comment on above: Performed By: #### C BC ####[facility] Kgppixcnfl2622 [place] [address]Dr. Farhat Leal IG % 0.5 % Normal 0.0-0.5 [facility] Comment on above: Performed By: #### C BC ####[facility] Okvbabpxev7367 [place] [address]Dr. Farhat Leal LYMPH # 2.4 103/ul Normal 1.2-3.8 [facility] Comment on above: Performed By: #### C BC ####[facility] Icushennsd8995 [place] [address]Dr. Farhat Leal Lymphocytes/100 WBC (Bld) 37.8 % Normal 20.5-60.0 The [facility] Comment on above: Performed By: #### C BC ####[facility] Mlurlztgmj55[address] [place] [address]Dr. Farhat Leal MANUAL DIFF REQ NO Normal [facility] Comment on above: Performed By: #### C BC ####[facility] Drzbfmqjdj1245 [place] [address]Dr. Farhat Leal MCH (RBC) [Entitic mass] 30.4 pg Normal 25.9-34.0 [facility] Comment on above: Performed By: #### C BC ####[facility] Tqvbrkwzjk4044 [place] [address]Dr. Farhat Leal MCHC (RBC) [Mass/Vol] 33.3 g/dL Normal 29.9-35.2 [facility] Comment on above: Performed By: #### C BC ####[facility] Bqbdlufiir1777 [place] [address]Dr. Farhat Leal MCV (RBC) [Entitic vol] 91.1 fL Normal 80.0-94.0 The [facility] Comment on above: Performed By: #### C BC ####[facility] Qahdogsrjh5475 [place] [address]Dr. Farhat Leal MONO # 0.7 103/ul Normal 0.3-0.8 [facility] Comment on above: Performed By: #### C BC ####[facility] Quylbironj5371 [place] [address]Dr. Farhat Leal Monocytes/100 WBC (Bld) 11.1 % Normal 1.7-12.0 [facility] Comment on above: Performed By: #### C BC ####[facility] Gviqpflkei27[address] [place], [place] [address]Dr. Farhat Leal NEUT # 2.9 103/ul Normal 1.4-6.5 [facility] Comment on above: Performed By: #### C BC ####[facility] Txwvddjhbd382[address] [place], [place] [address]Dr. Farhat Leal Neutrophils/100 WBC (Bld) 47.2 % Normal 43.0-75.0 The [facility] Comment on above: Performed By: #### C BC ####[facility] Wiuylktvph480[address] [place], [place] [address]Dr. Farhat Leal Platelet mean volume (Bld) [Entitic vol] 11.0 fL Normal 9.5-13.5 [facility] Comment on above: Performed By: #### C BC ####[facility] Hiqkbdnunh[address] [place], [place] [id number]. Farhat Elvis PLT 191 103/ul Normal 150-450 [facility] Comment on above: Performed By: #### C BC ####[facility] Aznanzwqnz87[address] [place], [place] [id number]. Farhat Elvis RBC 3.92 106/ul Critically low 4.70-6.10 [facility] Comment on above: Performed By: #### C BC ####[facility] Lsltvbbfyl217[address] [place], [place] [address]Dr. Farhat Leal WBC 6.2 103/ul Normal 4.0-11.0 [facility] Comment on above: Performed By: #### C BC ####[facility] Okogdibywq0267 [place] [address]Dr. Farhat Leal MAGNESIUMon 05-08-2022 Magnesium [Mass/Vol] 1.9 mg/dL Normal 1.8-2.4 [facility] Comment on above: Performed By: #### P HOS, MG ####[facility] Qnfeqbaurb2034 [place] [address]Dr. Farhat Leal PHOSPHORUSon 05-08-2022 Phosphate [Mass/Vol] 4.5 mg/dL Normal 2.6-4.7 [facility] Comment on above: Performed By: #### P HOS, MG ####[facility] Nemsuqwfxx3536 [place] [address]Dr. Madelynlorri Lela PROF 14(COMP METB)on 023 Albumin [Mass/Vol] 2.9 g/dL Critically low 3.4-5.0 [facility] Comment on above: Performed By: #### C MP ####[facility] Aihmbhxdoc32[address] [place], [place] [address]Dr. Farhat Leal Albumin/Globulin [Mass ratio] 0.9 {ratio} Normal [facility] Comment on above: Performed By: #### C MP ####[facility] Pueivetohw4[address] [place], [place] [address]Dr. Madelynlorri Leal ALP [Catalytic activity/Vol] 70 U/L Normal 46-116 [facility] Comment on above: Performed By: #### C MP ####[facility] Lqocnwwbke9355[address] [place], [place] [address]Dr. Farhat Leal ALT [Catalytic activity/Vol] 13 U/L Critically low 16-63 [facility] Comment on above: Performed By: #### C MP ####[facility] Uydebksiss4327 [place] [address]Dr. Farhat Lael Anion gap [Moles/Vol] 14.6 mmol/L Normal [facility] Comment on above: Performed By: #### C MP ####[facility] Swhavaprpt6403 [place] [address]Dr. Farhat Leal AST [Catalytic activity/Vol] 17 U/L Normal 15-37 [facility] Comment on above: Performed By: #### C MP ####[facility] Vfdlxnafdy8278 [place] [id number]. Farhat Leal Bilirubin [Mass/Vol] 0.8 mg/dL Normal 0.2-1.0 [facility] Comment on above: Performed By: #### C MP ####[facility] Yhyjszopyj9057 [place] [address]Dr. Farhat Leal Calcium [Mass/Vol] 8.9 mg/dL Normal 8.5-10.1 [facility] Comment on above: Performed By: #### C MP ####[facility] Rmjfvwmrvz30[address] [place], [place] [address]Dr. Farhat Leal Chloride [Moles/Vol] 102 mmol/L Normal 98-107 [facility] Comment on above: Performed By: #### C MP ####[facility] Eqejccljsj779[address] [place], [place] [address]Dr. Farhat Leal CO2 [Moles/Vol] 22.9 mmol/L Normal 21.0-32.0 [facility] Comment on above: Performed By: #### C MP ####[facility] Jgiolwucdy790[address] [place], [place] [address]Dr. Farhat Leal Creatinine [Mass/Vol] 1.20 mg/dL Normal 0.70-1.30 [facility] Comment on above: Performed By: #### C MP ####[facility] Bhviinghnd3496[address] [place], [place] [address]Dr. Farhat Elvis EGFR-AF JORDANIAN >60 Normal >=60 [facility] Comment on above: Performed By: #### C MP ####[facility] Ztvowjcqtr5394[address] [place], [place] [address]Dr. Madelynlorri Elvis EGFR-NON AF JORDANIAN 59 mL/min/1.73m2 Critically low >=60 [facility] Comment on above: Performed By: #### C MP ####[facility] Vbjuipfxes6312 [place] [address]Dr. Farhat Leal Globulin (S) [Mass/Vol] 3.1 g/dL Normal [facility] Comment on above: Performed By: #### C MP ####[facility] Leowflywcz9418 [place] [address]Dr. Farhat Leal Glucose [Mass/Vol] 447 mg/dL Critically high 74-106 T [facility] Comment on above: Performed By: #### C MP ####[facility] Fmmcriqjfg1975 [place] [address]Dr. Farhat Leal Potassium [Moles/Vol] 4.5 mmol/L Normal 3.5-5.1 [facility] Comment on above: Performed By: #### C MP ####[facility] Hhqygwccfo3124[address] [place], [place] [address]Dr. Farhat Leal Protein [Mass/Vol] 6.0 g/dL Critically low 6.4-8.2 [facility] Comment on above: Performed By: #### C MP ####[facility] Dfekmdkbzl0768 [place] [address]Dr. Farhat Leal Sodium [Moles/Vol] 135 mmol/L Critically low 136-145 [facility] Comment on above: Performed By: #### C MP ####[facility] Bhbbxftmxm0432 [place] [address]Dr. Farhat Leal Urea nitrogen [Mass/Vol] 52.0 mg/dL Critically high 7.0-18.0 [facility] Comment on above: Performed By: #### C MP ####[facility] Mzgsyiavji1970 [place] [address]Dr. Farhat Leal Urea nitrogen/Creatinine [Mass ratio] 43.3 mg/mg Normal [facility] Comment on above: Performed By: #### C MP ####[facility] Xnftajveau5[address] [place], [place] [address]Dr. Farhat Leal PROTIMEon 05-06-2022 INR Coag (PPP) [Relative time] 2.25 {INR} Normal [facility] Comment on above: Performed By: #### P T ####[facility] Hdiyxzquey0123[address] [place], [place] [address]DrSkylar Leal INR GUIDELINES SEE BELOW Normal [facility] Comment on above: Result Comment: MALINA RED INR: 2.0 - 3.0 CONDITIONS NOT LISTED BELOW 2.5 - 3.5 FOR PROSTHETIC HEART VALVE REPLACEMENT 2.5 - 3.5 RECURRENT THROMBOSIS Performed By: #### P T ####[facility] Xccrtzwsxz4340[address] [place], [place] [address]DrSkylar Leal PT Coag (PPP) [Time] 22.8 s Critically high 9.0-11.6 [facility] Comment on above: Performed By: #### P T ####[facility] Vpptahzccb8889[address] [place], [place] [address]DrSkylar Leal FK506 (TACROLIMUS) WHOLE BLO ODon 05-04-2022 Tacrolimus (FK506), Blood 10.4 ng/mL Normal 2.0-20.0 [facility] Comment on above: Result Comment: Trou gh (immediately following transplant) 15.0 . Trough (steady state, 2 weeks or more after transplant): 3.0 - 8.0 . Performed by LC-MS/MS technology. Performed By: #### F K506T ####[facility] Wcofiytglu17[address] [place], [place] [address]Dr. Farhat Leal CBC AUTO DIFFon 05-01-2022 BASO # 0.1 103/ul Normal 0.0-0.1 [facility] Comment on above: Performed By: #### C BC ####[facility] Mcnpygsocu4[address] [place], [place] [address]DrSkylar Leal Basophils/100 WBC (Bld) 0.7 % Normal 0.2-2.0 [facility] Comment on above: Performed By: #### C BC ####[facility] Pomarylzkv9848[address] [place], [place] [address]DrSkylar Leal EO # 0.2 103/ul Normal 0.0-0.7 [facility] Comment on above: Performed By: #### C BC ####[facility] Dnygenzjcb1586[address] [place], [place] [address]Dr. Farhat Leal Eosinophils/100 WBC (Bld) 3.2 % Normal 0.9-7.0 [facility] Comment on above: Performed By: #### C BC ####[facility] Zglfzdevah6443 [place] [address]Dr. Farhat Leal Erythrocyte distribution width (RBC) [Ratio] 16.4 % Critically high 11.0-15.0 [facility] Comment on above: Performed By: #### C BC ####[facility] Qghfoomtsd8779[address] [place], [place] [address]Dr. Farhat Leal Hematocrit (Bld) [Volume fraction] 35.1 % Critically low 42.0-54.0 [facility] Comment on above: Performed By: #### C BC ####[facility] Gunybpmwew55[address] [place], [place] [address]Dr. Farhat Leal Hemoglobin (Bld) [Mass/Vol] 11.6 g/dL Critically low 14.0-18.0 [facility] Comment on above: Performed By: #### C BC ####[facility] Uzpracmjcr9590[address] [place], [place] [address]Dr. Farhat Leal IG # 0.03 10e3/ul Normal 0.00-0.03 [facility] Comment on above: Performed By: #### C BC ####[facility] Ddaxcfjabt2446[address] [place], [place] [address]Dr. Farhat Leal IG % 0.4 % Normal 0.0-0.5 [facility] Comment on above: Performed By: #### C BC ####[facility] Eueiqdhxcs66[address] [place], [place] [address]Dr. Farhat Leal LYMPH # 2.4 103/ul Normal 1.2-3.8 [facility] Comment on above: Performed By: #### C BC ####[facility] Bqdjojfkdl060[address] [place], [place] [address]Dr. Farhat Leal Lymphocytes/100 WBC (Bld) 35.1 % Normal 20.5-60.0 [facility] Comment on above: Performed By: #### C BC ####[facility] Csqjsgtwkc3564 [place] [address]Dr. Farhat Elvis MANUAL DIFF REQ NO Normal [facility] Comment on above: Performed By: #### C BC ####[facility] Kfqbetsaqn3481 [place] [address]Dr. Farhat Leal MCH (RBC) [Entitic mass] 29.4 pg Normal 25.9-34.0 [facility] Comment on above: Performed By: #### C BC ####[facility] Mwjvhquqke0825 [place] [address]Dr. Farhat Elvis MCHC (RBC) [Mass/Vol] 33.0 g/dL Normal 29.9-35.2 [facility] Comment on above: Performed By: #### C BC ####[facility] Ptsnntiojx750[address] [place], [place] [address]Dr. Madelynlorri Leal MCV (RBC) [Entitic vol] 88.9 fL Normal 80.0-94.0 [facility] Comment on above: Performed By: #### C BC ####[facility] Kuxtysazwd5150[address] [place], [place] [address]Dr. Farhat Elvis MONO # 0.7 103/ul Normal 0.3-0.8 [facility] Comment on above: Performed By: #### C BC ####[facility] Axblvxfxvi1839[address] [place], [place] [address]Dr. Madelynlorri Leal Monocytes/100 WBC (Bld) 9.6 % Normal 1.7-12.0 [facility] Comment on above: Performed By: #### C BC ####[facility] Laafmszvwy6320 [place] [address]Dr. Farhat Leal NEUT # 3.5 103/ul Normal 1.4-6.5 [facility] Comment on above: Performed By: #### C BC ####[facility] Hwxelshjpk796[address] [place], [place] [address]Dr. Farhat Leal Neutrophils/100 WBC (Bld) 51.0 % Normal 43.0-75.0 [facility] Comment on above: Performed By: #### C BC ####[facility] Hpadjjillk2762 [place] [address]Dr. Madelynlorri Elvis Platelet mean volume (Bld) [Entitic vol] 10.3 fL Normal 9.5-13.5 [facility] Comment on above: Performed By: #### C BC ####[facility] Hxibjqnjwa0638 [place] [address]Dr. Madelynlorri Elvis PLT 184 103/ul Normal 150-450 [facility] Comment on above: Performed By: #### C BC ####[facility] Sjgsyyrfwd9048 [place] [address]Dr. Madelynlorri Elvis RBC 3.95 106/ul Critically low 4.70-6.10 [facility] Comment on above: Performed By: #### C BC ####[facility] Bxvvcuzqre7300 [place] [address]Dr. Farhat Leal WBC 7.0 103/ul Normal 4.0-11.0 [facility] Comment on above: Performed By: #### C BC ####[facility] Zqprmkmabp6088 [place] [address]Dr. Farhat Leal PROF 14(COMP METB)on 023 Albumin [Mass/Vol] 2.6 g/dL Critically low 3.4-5.0 [facility] Comment on above: Performed By: #### C MP ####[facility] Poclxexnxj5177 [place] [address]Dr. Farhat Leal Albumin/Globulin [Mass ratio] 0.9 {ratio} Normal [facility] Comment on above: Performed By: #### C MP ####[facility] Jbbgzewrkc8245 [place] [address]Dr. Farhat Leal ALP [Catalytic activity/Vol] 53 U/L Normal 46-116 [facility] Comment on above: Performed By: #### C MP ####[facility] Vvpcwocgwq5233 [place] [address]Dr. Farhat Leal ALT [Catalytic activity/Vol] 17 U/L Normal 16-63 [facility] Comment on above: Performed By: #### C MP ####[facility] Pssdzyngbm16[address] [place], [place] [address]Dr. Farhat Leal Anion gap [Moles/Vol] 10.0 mmol/L Normal [facility] Comment on above: Performed By: #### C MP ####[facility] Akudneupgm5676[address] [place], [place] [address]Dr. Farhat Leal AST [Catalytic activity/Vol] 19 U/L Normal 15-37 [facility] Comment on above: Performed By: #### C MP ####[facility] Eisydnwmqk2766[address] [place], [place] [address]Dr. Farhat Elvis Bilirubin [Mass/Vol] 0.5 mg/dL Normal 0.2-1.0 [facility] Comment on above: Performed By: #### C MP ####[facility] Ksajkmdxmw34[address] [place], [place] [address]Dr. Farhat Leal Calcium [Mass/Vol] 8.4 mg/dL Critically low 8.5-10.1 [facility] Comment on above: Performed By: #### C MP ####[facility] Tifobzrkhe7699[address] [place], [place] [address]Dr. Farhat Leal Chloride [Moles/Vol] 108 mmol/L Critically high 98-107 [facility] Comment on above: Performed By: #### C MP ####[facility] Tmcfopymnq[address] [place], [place] [address]Dr. Farhat Leal CO2 [Moles/Vol] 26.9 mmol/L Normal 21.0-32.0 [facility] Comment on above: Performed By: #### C MP ####[facility] Scterougyo20[address] [place], [place] [address]Dr. Farhat Leal Creatinine [Mass/Vol] 1.20 mg/dL Normal 0.70-1.30 [facility] Comment on above: Performed By: #### C MP ####[facility] Knsenaflhz[address] [place] [address]Dr. Farhat Leal EGFR-AF JORDANIAN >60 Normal >=60 [facility] Comment on above: Performed By: #### C MP ####[facility] [address] [place], [place] [address]Dr. Farhat Leal EGFR-NON AF JORDANIAN 59 mL/min/1.73m2 Critically low >=60 [facility] Comment on above: Performed By: #### C MP ####[facility] [address] [place] [address]Dr. Madelynlorri Elvis Globulin (S) [Mass/Vol] 3.0 g/dL Normal [facility] Comment on above: Performed By: #### C MP ####[facility] Nrhnvxyudi93[address] [place] [address]Dr. Farhat Leal Glucose [Mass/Vol] 213 mg/dL Critically high 74-106 T [facility] Comment on above: Performed By: #### C MP ####[facility] Nangevdxiy[address] [place], [place] [address]Dr. Farhat Leal Potassium [Moles/Vol] 3.9 mmol/L Normal 3.5-5.1 [facility] Comment on above: Performed By: #### C MP ####[facility] Fq[address]ztqvcvx[address] [place], [place] [address]Dr. Farhat Leal Protein [Mass/Vol] 5.6 g/dL Critically low 6.4-8.2 Th [facility] Comment on above: Performed By: #### C MP ####[facility] [address] [place], [place] [address]Dr. Farhat Leal Sodium [Moles/Vol] 141 mmol/L Normal 136-145 [facility] Comment on above: Performed By: #### C MP ####[facility] Xvbqzuedqa[address] [place] [address]Dr. Farhat Leal Urea nitrogen [Mass/Vol] 61.0 mg/dL Critically high 7.0-18.0 [facility] Comment on above: Performed By: #### C MP ####[facility] Cwyrjsfhot[address] [place], [place] [address]Dr. Farhat Leal Urea nitrogen/Creatinine [Mass ratio] 50.8 mg/mg Normal [facility] Comment on above: Performed By: #### C MP ####[facility] Yeddgrl[address] [place], [place] [address]Dr. Farhat Leal FK506 (TACROLIMUS) WHOLE BLO ODon 04-27-2022 Tacrolimus (FK506), Blood 16.5 ng/mL Normal 2.0-20.0 The [facility] Comment on above: Result Comment: Trou gh (immediately following transplant) 15.0 . Trough (steady state, 2 weeks or more after transplant): 3.0 - 8.0 . Performed by LC-MS/MS technology. Performed By: #### F K506T ####[facility] Lozisnqgoq[address] [place], [place] [address]Dr. Farhat Leal CBC AUTO DIFFon 04-24-2022 BASO # 0.0 103/ul Normal 0.0-0.1 The [facility] Comment on above: Performed By: #### C BC ####[facility] X[address]cl[address] [place], [place] [address]DrSkylar Leal Basophils/100 WBC (Bld) 0.5 % Normal 0.2-2.0 The [facility] Comment on above: Performed By: #### C BC ####[facility] Zprjpnij[address] [place], [place] [address]Dr. Farhat Leal EO # 0.2 103/ul Normal 0.0-0.7 The [facility] Comment on above: Performed By: #### C BC ####[facility] Mnivnyfmos[address] [place], [place] [address]Dr. Farhat Leal Eosinophils/100 WBC (Bld) 3.1 % Normal 0.9-7.0 The [facility] Comment on above: Performed By: #### C BC ####[facility] V[address]xfndqec[address] [place], [place] [address]Dr. Farhat Leal Erythrocyte distribution width (RBC) [Ratio] 16.3 % Critically high 11.0-15.0 The [facility] Comment on above: Performed By: #### C BC ####[facility] Dztgnrwarb[address] [place], [place] [address]DrSkylar Leal Hematocrit (Bld) [Volume fraction] 34.0 % Critically low 42.0-54.0 The [facility] Comment on above: Performed By: #### C BC ####[facility] [address]zggebkr[address] [place] [address]Dr. Farhat Leal Hemoglobin (Bld) [Mass/Vol] 11.6 g/dL Critically low 14.0-18.0 The [facility] Comment on above: Performed By: #### C BC ####[facility] Jcsxdhm[address]o08[address] [place] [address]Dr. Farhat Leal IG # 0.02 10e3/ul Normal 0.00-0.03 The [facility] Comment on above: Performed By: #### C BC ####[facility] Mvppsdpcri5214 [place] [address]Dr. Farhat Leal IG % 0.4 % Normal 0.0-0.5 The [facility] Comment on above: Performed By: #### C BC ####[facility] Exfkkvntbm[address] [place] [address]Dr. Farhat Leal LYMPH # 2.2 103/ul Normal 1.2-3.8 The [facility] Comment on above: Performed By: #### C BC ####[facility] B[address]dafklp9502 [place] [address]Dr. Farhat Leal Lymphocytes/100 WBC (Bld) 38.8 % Normal 20.5-60.0 The [facility] Comment on above: Performed By: #### C BC ####[facility] [address]hiqvhi[address] [place] [address]Dr. Farhat Leal MANUAL DIFF REQ NO Normal [facility] Comment on above: Performed By: #### C BC ####[facility] Mvtzjxbevf8073 [place] [address]Dr. Farhat Leal MCH (RBC) [Entitic mass] 30.1 pg Normal 25.9-34.0 The [facility] Comment on above: Performed By: #### C BC ####[facility] Jjjplzrqoy6944 [place] [address]Dr. Farhat Leal MCHC (RBC) [Mass/Vol] 34.1 g/dL Normal 29.9-35.2 The [facility] Comment on above: Performed By: #### C BC ####[facility] Ogmf[address] [place], [place] [id number]. Farhat Leal MCV (RBC) [Entitic vol] 88.1 fL Normal 80.0-94.0 The [facility] Comment on above: Performed By: #### C BC ####[facility] Ikrkreyruo2322 [place] [address]Dr. Farhat Leal MONO # 0.6 103/ul Normal 0.3-0.8 The [facility] Comment on above: Performed By: #### C BC ####[facility] Tzunldcmzg7[address] [place] [address]Dr. Farhat Leal Monocytes/100 WBC (Bld) 10.8 % Normal 1.7-12.0 The [facility] Comment on above: Performed By: #### C BC ####[facility] Thwixynkuc60[address] [place] [address]Dr. Farhat Leal NEUT # 2.6 103/ul Normal 1.4-6.5 The [facility] Comment on above: Performed By: #### C BC ####[facility] Waqlrpfuyv5686 [place] [address]Dr. Farhat Leal Neutrophils/100 WBC (Bld) 46.4 % Normal 43.0-75.0 The [facility] Comment on above: Performed By: #### C BC ####[facility] Nnnidhthzl8339 [place] [address]Dr. Farhat Leal Platelet mean volume (Bld) [Entitic vol] 10.9 fL Normal 9.5-13.5 The [facility] Comment on above: Performed By: #### C BC ####[facility] Bdpbzyvxkl5453 [place] [address]Dr. Farhat Elvis PLT 159 103/ul Normal 150-450 The [facility] Comment on above: Performed By: #### C BC ####[facility] Sgpcwsxxli8416 [place] [address]Dr. Farhat Elvis RBC 3.86 106/ul Critically low 4.70-6.10 [facility] Comment on above: Performed By: #### C BC ####[facility] Llkxmnbsmv[address] [place], [place] [address]Dr. Farhat Elvis WBC 5.6 103/ul Normal 4.0-11.0 [facility] Comment on above: Performed By: #### C BC ####[facility] Eclsfrxbkx7237 [place] [address] Farhat Leal PROTIMEon 04-24-2022 INR Coag (PPP) [Relative time] 3.23 {INR} Normal [facility] Comment on above: Performed By: #### P T ####[facility] Phxt[address]fguq[address] [place], [place] [address]DrSkylar Leal INR GUIDELINES SEE BELOW Normal [facility] Comment on above: Result Comment: MALINA RED INR: 2.0 - 3.0 CONDITIONS NOT LISTED BELOW 2.5 - 3.5 FOR PROSTHETIC HEART VALVE REPLACEMENT 2.5 - 3.5 RECURRENT THROMBOSIS Performed By: #### P T ####[facility] Ebfonuhibm[address] [place], [place] [address]DrSkylar Leal PT Coag (PPP) [Time] 32.0 s Critically high 9.0-11.6 The [facility] Comment on above: Performed By: #### P T ####[facility] Su[address]jiau[address] [place], [place] [address]DrSkylar Leal FK506 (TACROLIMUS) WHOLE BLO ODon 04-20-2022 Tacrolimus (FK506), Blood 13.9 ng/mL Normal 2.0-20.0 [facility] Comment on above: Result Comment: Trou gh (immediately following transplant) 15.0 . Trough (steady state, 2 weeks or more after transplant): 3.0 - 8.0 . Performed by LC-MS/MS technology. Performed By: #### F K506T ####[facility] Rdeamfdnqe1372 [place] [address]DrSkylar Madelynlorri Leal CBC AUTO DIFFon 04-17-2022 BASO # 0.0 103/ul Normal 0.0-0.1 [facility] Comment on above: Performed By: #### C BC ####[facility] K[address]wbcvdw[address] [place], [place] [address]DrSkylar Leal Basophils/100 WBC (Bld) 0.4 % Normal 0.2-2.0 [facility] Comment on above: Performed By: #### C BC ####[facility] Fzuvxhsize[address] [place], [place] [address]Dr. Farhat Leal EO # 0.2 103/ul Normal 0.0-0.7 The [facility] Comment on above: Performed By: #### C BC ####[facility] J[address]zw[address]zsc[address] [place], [place] [address]DrSkylar Leal Eosinophils/100 WBC (Bld) 2.8 % Normal 0.9-7.0 The [facility] Comment on above: Performed By: #### C BC ####[facility] Rzgrfcofds[address] [place], [place] [address]Dr. Farhat Leal Erythrocyte distribution width (RBC) [Ratio] 16.1 % Critically high 11.0-15.0 [facility] Comment on above: Performed By: #### C BC ####[facility] N[address]fzdp[address] [place], [place] [address]Dr. Farhat Leal Hematocrit (Bld) [Volume fraction] 35.7 % Critically low 42.0-54.0 [facility] Comment on above: Performed By: #### C BC ####[facility] [address] [place], [place] [address]DrSkylar Madelynlorri Leal Hemoglobin (Bld) [Mass/Vol] 12.2 g/dL Critically low 14.0-18.0 The [facility] Comment on above: Performed By: #### C BC ####[facility] Q[address]rqrly[address] [place], [place] [address]Dr. Farhat Leal IG # 0.03 10e3/ul Normal 0.00-0.03 The [facility] Comment on above: Performed By: #### C BC ####[facility] Al[address]wsz[address] [place], [place] [address]Dr. Farhat Leal IG % 0.4 % Normal 0.0-0.5 The [facility] Comment on above: Performed By: #### C BC ####[facility] Dhcltdikml40[address] [place], [place] [address]DrSkylar Leal LYMPH # 2.4 103/ul Normal 1.2-3.8 [facility] Comment on above: Performed By: #### C BC ####[facility] Rkfgqhbzhv7535 [place] [address]Dr. Farhat Leal Lymphocytes/100 WBC (Bld) 36.1 % Normal 20.5-60.0 [facility] Comment on above: Performed By: #### C BC ####[facility] Eqllzruifs3911 [place] [address]DrSkylar Leal MANUAL DIFF REQ NO Normal [facility] Comment on above: Performed By: #### C BC ####[facility] Wzcatzfugw3614 [place] [address]DrSkylar Leal MCH (RBC) [Entitic mass] 30.3 pg Normal 25.9-34.0 [facility] Comment on above: Performed By: #### C BC ####[facility] Mlmofwaceo[address] [place], [place] [address]Dr. Farhat Leal MCHC (RBC) [Mass/Vol] 34.2 g/dL Normal 29.9-35.2 [facility] Comment on above: Performed By: #### C BC ####[facility] C[address]fsed[address] [place], [place] [address]DrSkylar Leal MCV (RBC) [Entitic vol] 88.6 fL Normal 80.0-94.0 The [facility] Comment on above: Performed By: #### C BC ####[facility] Vsojimahgo[address] [place], [place] [address]Dr. Farhat Leal MONO # 0.7 103/ul Normal 0.3-0.8 The [facility] Comment on above: Performed By: #### C BC ####[facility] Xffylffcpj[address] [place], [place] [address]Dr. Farhat Leal Monocytes/100 WBC (Bld) 10.1 % Normal 1.7-12.0 [facility] Comment on above: Performed By: #### C BC ####[facility] Gubelyruxq[address] [place], [place] [address]DrSkylar Leal NEUT # 3.4 103/ul Normal 1.4-6.5 [facility] Comment on above: Performed By: #### C BC ####[facility] Mstawobakd7154 [place] [address]Dr. Farhat Leal Neutrophils/100 WBC (Bld) 50.2 % Normal 43.0-75.0 [facility] Comment on above: Performed By: #### C BC ####[facility] Htckhakcmh3[address] [place] [address]Dr. Farhat Leal Platelet mean volume (Bld) [Entitic vol] 11.8 fL Normal 9.5-13.5 [facility] Comment on above: Performed By: #### C BC ####[facility] Mrcvxilnon[address] [place], [place] [address]Dr. Farhat Leal PLT 193 103/ul Normal 150-450 [facility] Comment on above: Performed By: #### C BC ####[facility] Yzgeygebva8856 [place] [address]Dr. Farhat Leal RBC 4.03 106/ul Critically low 4.70-6.10 [facility] Comment on above: Performed By: #### C BC ####[facility] R[address]ls[address] [place], [place] [address]Dr. Farhat Leal WBC 6.8 103/ul Normal 4.0-11.0 [facility] Comment on above: Performed By: #### C BC ####[facility] Ndzyqkxqhv07[address] [place] [address]Dr. Farhat Leal PROF 14(COMP METB)on 023 Albumin [Mass/Vol] 2.9 g/dL Critically low 3.4-5.0 [facility] Comment on above: Performed By: #### C MP ####[facility] [address]md[address]uvrql[address] [place], [place] [address]Dr. Farhat Leal Albumin/Globulin [Mass ratio] 0.9 {ratio} Normal [facility] Comment on above: Performed By: #### C MP ####[facility] Oxhcqwvoxw8545 [place] [address]Dr. Farhat Leal ALP [Catalytic activity/Vol] 67 U/L Normal 46-116 [facility] Comment on above: Performed By: #### C MP ####[facility] Urijcgktuq3391 [place] [address]Dr. Farhat Leal ALT [Catalytic activity/Vol] 15 U/L Critically low 16-63 [facility] Comment on above: Performed By: #### C MP ####[facility] Hwftwjqlxu7532 [place] [address]Dr. Farhat Leal Anion gap [Moles/Vol] 10.8 mmol/L Normal Th e [facility] Comment on above: Performed By: #### C MP ####[facility] Jnbukarepi5201 [place] [address]Dr. Farhat Leal AST [Catalytic activity/Vol] 23 U/L Normal 15-37 [facility] Comment on above: Performed By: #### C MP ####[facility] [address]ciuqsmx[address] [place], [place] [address]Dr. Frahat Elvis Bilirubin [Mass/Vol] 0.6 mg/dL Normal 0.2-1.0 [facility] Comment on above: Performed By: #### C MP ####[facility] Vjiyxcvmgd7644 [place] [address]Dr. Farhat Leal Calcium [Mass/Vol] 8.7 mg/dL Normal 8.5-10.1 [facility] Comment on above: Performed By: #### C MP ####[facility] Utjnkpztjc[address] [place] [address]Dr. Farhat Elvis Chloride [Moles/Vol] 105 mmol/L Normal 98-107 [facility] Comment on above: Performed By: #### C MP ####[facility] Tmastwppih2187 [place] [address]Dr. Farhat Leal CO2 [Moles/Vol] 29.5 mmol/L Normal 21.0-32.0 [facility] Comment on above: Performed By: #### C MP ####[facility] Fvqqxcrbvg2235 [place] [address]Dr. Farhat Elvis Creatinine [Mass/Vol] 1.37 mg/dL Critically high 0.70-1.30 [facility] Comment on above: Performed By: #### C MP ####[facility] Orqpvwgfxx4316 [place] [address]Dr. Farhat Elvis EGFR-AF JORDANIAN >60 Normal >=60 [facility] Comment on above: Performed By: #### C MP ####[facility] [address]ib[address] [place], [place] [address]Yq. Farhat Elvis EGFR-NON AF JORDANIAN 50 mL/min/1.73m2 Critically low >=60 [facility] Comment on above: Performed By: #### C MP ####[facility] Gubuqvphzk2918 [place] [address]Dr. Farhat Elvis Globulin (S) [Mass/Vol] 3.1 g/dL Normal [facility] Comment on above: Performed By: #### C MP ####[facility] Jwbrslqula2674 [place] [address]Dr. Madelynlorri Elvis Glucose [Mass/Vol] 203 mg/dL Critically high 74-106 [facility] Comment on above: Performed By: #### C MP ####[facility] Sjmbsuwtlt5093 [place] [address]Dr. Madelynlorri Leal Potassium [Moles/Vol] 4.3 mmol/L Normal 3.5-5.1 [facility] Comment on above: Performed By: #### C MP ####[facility] Chngyjyeuf4402 [place] [address]Dr. Madelynlorri Elvis Protein [Mass/Vol] 6.0 g/dL Critically low 6.4-8.2 Th [facility] Comment on above: Performed By: #### C MP ####[facility] Nyzpsetwvj6763 [place] [address]Dr. Farhat Elvis Sodium [Moles/Vol] 141 mmol/L Normal 136-145 [facility] Comment on above: Performed By: #### C MP ####[facility] Dwfcfhfyvh5632 [place] [address]Dr. Farhat Leal Urea nitrogen [Mass/Vol] 65.0 mg/dL Critically high 7.0-18.0 [facility] Comment on above: Performed By: #### C MP ####[facility] Yoiezujjtw2925 [place] [address]Dr. Madelynlorri Leal Urea nitrogen/Creatinine [Mass ratio] 47.4 mg/mg Normal [facility] Comment on above: Performed By: #### C MP ####[facility] Pwbcqjwcly2776 [place] [address]DrSkylar Leal PROTIMEon 04-15-2022 INR Coag (PPP) [Relative time] 3.88 {INR} Normal [facility] Comment on above: Performed By: #### P T ####[facility] Vdotojkefz6[address] [place] [address]Dr. Farhat Leal INR GUIDELINES SEE BELOW Normal [facility] Comment on above: Result Comment: MALINA RED INR: 2.0 - 3.0 CONDITIONS NOT LISTED BELOW 2.5 - 3.5 FOR PROSTHETIC HEART VALVE REPLACEMENT 2.5 - 3.5 RECURRENT THROMBOSIS Performed By: #### P T ####[facility] Nadrmqivmx8730 [place] [id number]. Madelynlorri Leal PT Coag (PPP) [Time] 38.1 s Critically high 9.0-11.6 [facility] Comment on above: Performed By: #### P T ####[facility] Wijjwaxaul5954 [place] [id number]. Farhat Leal Glucose Glucometer (BldC) [M ass/Vol]Ordered By: Sadia Aguilar on 04-14-2022 Glucose [Mass/Vol] 162 mg/dL [facility] Comment on above: Random Glucose Refer ence Range is dependent on time and content of last meal. Glucose of more than 200 mg/dL in a nonstressed, ambulatory subject supports the diagnosis of Diabetes Mellitus. Glucose Poct Glucometerson 0 04-14-2022 Commemt1 Glu2: Cleaned Meter Normal [facility] Comment on above: Result Comment: PERF ORMED BY: [facility] [address] [address] PATHOLOGIST [employer]IMARY [employer] JOSE F ELLIOTT M.D. Performed By: #### G LULS #### Point of Care testing , Glucose [Mass/Vol] 162 mg/dL Normal [facility] Comment on above: Result Comment: [facility] Glucose Reference Range is dependent on time and content of last meal. Glucose of more than 200 mg/dL in a nonstressed, ambulatory subject supports the diagnosis of Diabetes Mellitus. Performed By: #### G LULS #### Point of Care testing , No Panel InformationOrdered By: Sadia Aguilar on 04-14-2022 Bedside Glucose Comment Glu2: cleaned meter [facility] MAGNESIUMon 04-13-2022 Magnesium [Mass/Vol] 1.7 mg/dL Critically low 1.8-2.4 [facility] Comment on above: Performed By: #### M HENRI Manzo ####[facility] Meaavtgyac28[address] [place] [address]DrSkylar Leal PHOSPHORUSon 04-13-2022 Phosphate [Mass/Vol] 4.8 mg/dL Critically high 2.6-4.7 The [facility] Comment on above: Performed By: #### M HENRI Manzo ####[facility] Eyiilodbkj2373 [place] [address]DrSkylar Leal PROTIMEon 04-13-2022 INR Coag (PPP) [Relative time] 3.16 {INR} Normal [facility] Comment on above: Performed By: #### P T ####[facility] [address]wj[address] [place], [place] [address]DrSkylar Leal INR GUIDELINES SEE BELOW Normal [facility] Comment on above: Result Comment: MALINA RED INR: 2.0 - 3.0 CONDITIONS NOT LISTED BELOW 2.5 - 3.5 FOR PROSTHETIC HEART VALVE REPLACEMENT 2.5 - 3.5 RECURRENT THROMBOSIS Performed By: #### P T ####[facility] Z[address]ek[address]juwou[address] [place], [place] [address]DrSkylar Leal PT Coag (PPP) [Time] 31.4 s Critically high 9.0-11.6 The [facility] Comment on above: Performed By: #### P T ####[facility] Llhypchoae[address] [place], [place] [address]DrSkylar Leal MAGNESIUMon 03-11-2022 Magnesium [Mass/Vol] 1.6 mg/dL Critically low 1.8-2.4 The [facility] Comment on above: Performed By: #### M Anais PHOS ####[facility] Exx[address]efwgi0737 [place], [place] [address]Yp. Farhat Leal PHOSPHORUSon 03-11-2022 Phosphate [Mass/Vol] 5.3 mg/dL Critically high 2.6-4.7 The [facility] Comment on above: Performed By: #### M Anais PHOS ####[facility] Nqyekigpez6635 [place], [place] [address]Pm. Farhat Leal CNOVon 02-26-2022 CNOV Office Visit (HONEY ) ALEX ALMONTE ([id number]) 1945 M TRN Date Time Provider Department 02/26/22 3:00 PM HINA PETERSON During your visit today, we recorded the following information about you: Temperature Pulse Blood pressure 96.6 degrees 75/minute 88/75 Hina Peterson MD, MD 02/26/2022 4:31 PM [facility] Heart , Vascular and Thoracic [place] DEPARTMENT OF VASCULAR SURGERY OUTPATIENT VISIT DATE [...] his postop visit. He has been in penitentiary since then and has been recovering from his acute on chronic congestive heart failure. His wound has largely been healing without any issues and the maxwell and sutures were removed at the nursing facility. He comes here with a lateral wound eschar. He denies any fevers, chills, or any drainage. He is on anticoagulation. 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 Patient on mycophenolate mofetil , cellcept and prednisone Mixed hyperlipidemia due to type 2 diabetes mellitus ([facility]) 11/29/2021 Osteomyelitis ([facility]) 11/29/2021 Paroxysmal atrial fibrillation ([facility]) Renal transplant, status post SA node dysfunction ([facility]) s/p pacemaker Type 2 diabetes mellitus with diabetic neuropathy, with long-term current use of insulin ([facility]) 02/24/2002 PAST SURGICAL HISTORY Procedure [...] by mouth daily with lunch. [employer] [place] with lunch aspirin, enteric coated (ASPIRIN, ENTERIC COATED) 81 mg EC tablet Take 1 tablet by (more content not included)... Normal [facility] PROTIMEon 02-25-2022 INR Coag (PPP) [Relative time] 1.31 {INR} Normal [facility] Comment on above: Performed By: #### P T ####[facility] [address]jeynytllg[address] [place] [address]Dr. Farhat Leal INR GUIDELINES SEE BELOW Normal [facility] Comment on above: Result Comment: MALINA RED INR: 2.0 - 3.0 CONDITIONS NOT LISTED BELOW 2.5 - 3.5 FOR PROSTHETIC HEART VALVE REPLACEMENT 2.5 - 3.5 RECURRENT THROMBOSIS Performed By: #### P T ####[facility] [address] [place], [place] [address]Or. Farhat Leal PT Coag (PPP) [Time] 13.7 s Critically high 9.0-11.6 [facility] Comment on above: Performed By: #### P T ####[facility] [address] [place], [place] [address]Ya. Farhat Leal CNPNon 02-19-2022 CNPN Telephone (TXCTGL) ALEX ALMONTE ([id number]) 1945 M TRN Date Time Provider Department [...] by mouth daily with lunch. 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 DIABETES UNCOMPL ADULT-UNCONTRLLED [[id number]] 02/24/2002 KIDNEY TRANSPLANT STATUS [Z94.0] 09/07/2003 PROPHYLACTIC IMMUNOTHERAPY [Z29.8] 07/30/2006 FPC STEROIDS [[id number]] 07/30/2006 VITAMIN D DEFICIENCY NOS [E55.9] 09/07/2008 [...] perfusion [R09.89] 09/30/2021 PAD (peripheral artery disease) ([facility]) [I73.9] 09/26/2021 Osteomyelitis (HCC) [M86.9] 11/29/2021 Class 1 obesity due to excess calories with ser*11/29/2021 Mixed hyperlipidemia due to type 2 diabetes myles*11/29/2021 Type 2 diabetes mellitus with diabetic peripher*11/29/2021 Atherosclerosis of [place] artery of extremity w*11/29/2021 Malnutrition of moderate degree (HCC) [E44.0] 12/01/2021 Dermatitis associated with moisture [L30.8] 12/04/2021 Encounter Status:Closed by AUGUSTA MEDRANO on 02/19/22 Normal [facility] Sonya 02-18-2022 CNPN Telephone (PODCCP) SUZYALEX Love ([id number]) 1945 M TRN Date Time Provider Department 02/18/22 DEVON MOREIRA PODCCP During your visit today, we recorded the following information about you: Yumiko Denise 02/18/2022 3:16 PM Signed Reason for call: Mr. Almonte would like to request a sooner appointment with Dr. Peterson than 04/13/2022. Contact Name (if not the patient) Alex's nurse Home and cell number(Ask for Alex's nurse) [phone] Diagnosis 4 mo f/u wound check Best regards, Yumiko Martinezmisael Beard 02/19/2022 12:22 PM Signed Alex Almonte [...] by mouth daily with lunch. 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 DIABETES UNCOMPL ADULT-UNCONTRLLED [[id number]] 02/24/2002 KIDNEY TRANSPLANT STATUS [Z94.0] 09/07/2003 PROPHYLACTIC IMMUNOTHERAPY [Z29.8] 07/30/2006 FPC STEROIDS [[id number]] 07/30/2006 VITAMIN D DEFICIENCY NOS [E55.9] 09/07/2008 [...] diabetes mellitus with diabetic peripher*11/29/2021 Atherosclerosis of [place] artery of extremity w*11/29/2021 Malnutrition of moderate degree (HCC) [E44.0] 12/01/2021 Dermatitis associated with moisture [L30.8] 12/04/2021 Encounter Status:Closed by CHEASTY (more content not included)... Normal [facility] CNOVon 02-05-2022 CNOV Office Visit (TXCTGL ) ALEX ALMONTE ([id number]) 1945 M TRN Date Time Provider Department 02/05/22 8:20 AM KIDNEY TXP CLINIC TXCTGL During your visit today, we recorded the following information about you: Temperature Pulse Blood pressure 96.7 degrees 79/minute 72/42 Asia Pike MD 02/05/2022 9:38 AM Signed [facility] [place] Trans[facility] Follow up Portions of this note [...] Indra scale at [facility]: 166.2 lbs per patient. Bed sore on coccyx causing discomfort. Being changed regularly at [facility]- reported to be smaller around but still as deep. Patient not very up to date with medications. Patient brought paperwork from [employer] [facility] with all medications being received. Patient unsure if they have been drawing labs regularly. Last Tac from 01/19: 12.9 and K 5.9. In need of current labs. Lab orders will be sent with patient and follows as below: [facility] Transplant Standing Lab Orders [address] [place], [place] [address] February 05, 2022 Alex Almonte 1945 [id number] STANDARD TESTING: Diagnosis Codes: Z94.0 Kidney Transplant [...] AT YOUR LABORATORY FACILITY AND FAX TO [phone]. PLEASE CALL [phone]. Provider: Dr. Pike Current Outpatient Medications Medication [...] Take 237 (more content not included)... Normal [facility] PROTEIN CREATININE RATIOon 1 04-08-2021 Protein/Creatinine (U) [Mass ratio] 0.10 mg/mg <0.15 mg/mg [facility] PROTIMEon 02-05-2022 INR Coag (PPP) [Relative time] 2.90 {INR} Normal [facility] Comment on above: Performed By: #### P T ####[facility] [address] [place], [place] [address]NxDr. Farhat Leal INR GUIDELINES SEE BELOW Normal [facility] Comment on above: Result Comment: MALINA RED INR: 2.0 - 3.0 CONDITIONS NOT LISTED BELOW 2.5 - 3.5 FOR PROSTHETIC HEART VALVE REPLACEMENT 2.5 - 3.5 RECURRENT THROMBOSIS Performed By: #### P T ####[facility] [address] [place], [place] [address]Vz. Farhat Leal PT Coag (PPP) [Time] 29.2 s Critically high 9.0-11.6 [facility] Comment on above: Performed By: #### P T ####[facility] [address] [place] [id number]. Farhat Elvis Prot/Creat Uron 02-05-2022 Protein/Creatinine (U) [Mass ratio] 0.10 mg/mg Normal <0.15 [facility] Comment on above: Order Comment: Speci men Type: URINE SPECIMENOrdering Facility: [facility] Address: [address] [place] [address] Result Comment: Adul t Proteinuria Categories: <0.15 mg/mg is considered normal to mildly increased 0.15 - 0.50 mg/mg is considered moderately increased >0.50 mg/mg is considered severely increased KDIGO. (2013). KDIGO 2012 Clinical Practice Guideline for the Evaluation and Management of Chronic Kidney Disease. Official Journal of the International Society of Nephrology, 3(1), 1-150. Performed By: #### 2 890-2 ####[facility] [id number] [place] [address] [place] Protein/Creatinine (U) [Mass ratio]on 02-05-2022 Creatinine (U) [Mass/Vol] 86.9 mg/dL 20.0 - 300.0 mg/dL [facility] Protein (U) [Mass/Vol] 9 mg/dL 0 - 20 mg/dL [facility] Creatinine (U) [Mass/Vol] 86.9 mg/dL Normal 20.0-300.0 [facility] Comment on above: Order Comment: Speci men Type: URINE SPECIMENOrdering Facility: [facility] Address: [address] [place] [address] Performed By: #### 2 890-2 ####[facility] LABIA [id number] [place] [address] [place] Protein (U) [Mass/Vol] 9 mg/dL Normal 0-20 Cl [facility] Comment on above: Order Comment: Speci men Type: URINE SPECIMENOrdering Facility: [facility] Address: [address] [place], [place] [address] Performed By: #### 2 890-2 ####[facility] LABCLIA [id number] [place] [address] [place] URINALYSIS, DIPSTICK ONLYon 02-05-2022 Bilirubin Ql (U) Negative Normal Negative [facility] Comment on above: Order Comment: Speci men Type: URINE SPECIMEN Ordering Facility: [facility] Address: [address] [place], [place] [address] Performed By: #### U A #### [facility] CLIA [id number] [address] [place] [address] [place] Clarity (Unsp spec) Clear Normal Clear [facility] Comment on above: Order Comment: Speci men Type: URINE SPECIMEN Ordering Facility: [facility] Address: [address] [place], [place] [address] Performed By: #### U A #### [facility] CLIA [id number] [address] [place] [address] [place] Color (U) Yellow Normal Yellow [facility] Comment on above: Order Comment: Speci men Type: URINE SPECIMEN Ordering Facility: [facility] Address: [address] [place], [place] [address] Performed By: #### U A #### [facility] CLIA [id number] [address] [place] [address] [place] Glucose Test strip (U) [Mass/Vol] 3+ Abnormal Trace, Negative [facility] Comment on above: Order Comment: Speci men Type: URINE SPECIMEN Ordering [facility]: [facility] Address: [address] [place], [place] [address] Performed By: #### U A #### [facility] CLIA [id number] [address] [place] [address] [place] Hemoglobin Ql (U) Negative Normal Negative, Trace [facility] Comment on above: Order Comment: Speci men Type: URINE SPECIMEN Ordering Facility: [facility] Address: [address] [place] [place] [address] Performed By: #### U A #### [facility] CLIA [id number] [address] [place] [address] [place] Ketones Ql (U) Trace Normal Negative, Trace [facility] Comment on above: Order Comment: Speci men Type: URINE SPECIMEN Ordering Facility: [facility] Address: [address] [place] [address] Performed By: #### U A #### [facility] CLIA [id number] [address] [place] [address] [place] Leukocyte esterase Test strip Ql (U) Negative Normal Negative, 25 Loraine/mL [facility] Comment on above: Order Comment: Speci men Type: URINE SPECIMEN Ordering [facility]: [facility] Address: [address] [place] [place] [address] Performed By: #### U A #### [facility] CLIA [id number] [address] [place] [address] [place] Nitrite Ql (U) Negative Normal Negative [facility] Comment on above: Order Comment: Speci men Type: URINE SPECIMEN Ordering [facility]: [facility] Address: [address] [place] [place] [address] Performed By: #### U A #### [facility] CLIA [id number] [address] [place] [address] [place] pH (U) 5.5 [pH] Normal 5.0-8.0 [facility] Comment on above: Order Comment: Speci men Type: URINE SPECIMEN Ordering [facility]: [facility] Address: [address] [place] [address] Performed By: #### U A #### [facility] CLIA [id number] [facility] [address] [place] Protein (U) [Mass/Vol] Negative Normal Trace , Negative [facility] Comment on above: Order Comment: Speci men Type: URINE SPECIMEN Ordering [facility]: [facility] Address: [address] [place] [address] Performed By: #### U A #### [facility] CLIA [id number] [address] [place] [address] [place] Specific gravity (U) [Rel density] 1.014 Normal 1.005-1.030 [facility] Comment on above: Order Comment: Speci men Type: URINE SPECIMEN Ordering [facility] Address: [address] [place] [address] Performed By: #### U A #### [facility] CLIA [id number] [address] [place] [address] [place] Urobilinogen Ql (U) 1+ Abnormal Negative [facility] Comment on above: Order Comment: Speci men Type: URINE SPECIMEN Ordering Facility[facility] Address: [address] [place] [address] Performed By: #### U A #### [facility] CLIA [id number] [address] [place] [address] [place] Bilirubin Ql (U) Negative Negative [facility] Clarity (Unsp spec) Clear Clear [facility] Color (U) Yellow Yellow [facility] Glucose Test strip (U) [Mass/Vol] 3+ Abnormal Trace, Negative [facility] Hemoglobin Ql (U) Negative Negative, Trace [facility] Ketones Ql (U) Trace Negative, Trace [facility] Leukocyte esterase Test strip Ql (U) Negative Negative, 25 Loraine/mL [facility] Nitrite Ql (U) Negative Negative [facility] pH (U) 5.5 [pH] 5.0 - 8.0 [facility] Protein (U) [Mass/Vol] Negative Trace , Negative [facility] Specific gravity (U) [Rel density] 1.014 1.005 - 1.030 [facility] Urobilinogen Ql (U) 1+ Abnormal Negative [facility] FK506 (TACROLIMUS) WHOLE BLO ODon 01-29-2022 Tacrolimus (FK506), Blood 11.1 ng/mL Normal 2.0-20.0 [facility] Comment on above: Result Comment: Trou gh (immediately following transplant) 15.0 . Trough (steady state, 2 weeks or more after transplant): 3.0 - 8.0 . Performed by LC-MS/MS technology. Performed By: #### F K506T ####[facility] [address] [place], [place] [address]Dr. Farhat Leal PHOSPHORUSon 01-26-2022 Phosphate [Mass/Vol] 4.1 mg/dL Normal 2.6-4.7 [facility] Comment on above: Performed By: #### C CAAR, PHOS ####[facility] [address] [place], [place] [address]DrSkylar Leal PROF 14(COMP METB)on 022 Albumin [Mass/Vol] 2.1 g/dL Critically low 3.4-5.0 [facility] Comment on above: Performed By: #### C CARA PHOS ####[facility] [address] [place], [place] [address]Dr. Farhat Leal Albumin/Globulin [Mass ratio] 0.6 {ratio} Normal [facility] Comment on above: Performed By: #### C CARA, PHOS ####[facility] [address] [place], [place] [address]Dr. Farhat Leal ALP [Catalytic activity/Vol] 89 U/L Normal 46-116 [facility] Comment on above: Performed By: #### C CARA, PHOS ####[facility] [address] [place], [place] [address]Dr. Farhat Leal ALT [Catalytic activity/Vol] 27 U/L Normal 16-63 [facility] Comment on above: Performed By: #### C CARA, PHOS ####[facility] [address] [place], [place] [address]Dr. Farhat Leal Anion gap [Moles/Vol] 12.3 mmol/L Normal [facility] Comment on above: Performed By: #### C CARA, PHOS ####[facility] [address] [place] [address]Dr. Farhat Leal AST [Catalytic activity/Vol] 53 U/L Critically high 15-37 [facility] Comment on above: Performed By: #### C CARA, PHOS ####[facility] [address] [place], [place] [address]Dr. Farhat Leal Bilirubin [Mass/Vol] 0.6 mg/dL Normal 0.2-1.0 [facility] Comment on above: Performed By: #### C CARA, PHOS ####[facility] [address] [place], [place] [address]Dr. Farhat Leal Calcium [Mass/Vol] 8.0 mg/dL Critically low 8.5-10.1 [facility] Comment on above: Performed By: #### C CARA, PHOS ####[facility] [address] [place], [place] [address]Dr. Farhat Leal Chloride [Moles/Vol] 97 mmol/L Critically low 98-107 [facility] Comment on above: Performed By: #### C CARA, PHOS ####[facility] [address] [place], [place] [address]Dr. Farhat Leal CO2 [Moles/Vol] 26.6 mmol/L Normal 21.0-32.0 [facility] Comment on above: Performed By: #### C CARA, PHOS ####[facility] [address] [place], [place] [address]Dr. Farhat Leal Creatinine [Mass/Vol] 1.03 mg/dL Normal 0.70-1.30 [facility] Comment on above: Performed By: #### C CARA, PHOS ####[facility] [address] [place] [address]Dr. Farhat Leal EGFR-AF JORDANIAN >60 Normal >=60 [facility] Comment on above: Performed By: #### C CARA, PHOS ####[facility] [address] [place] [address]Dr. Farhat Leal EGFR-NON AF JORDANIAN >60 Normal >=60 [facility] Comment on above: Performed By: #### C CARA, PHOS ####[facility] [address] [place] [address]Dr. Farhat Leal Globulin (S) [Mass/Vol] 3.7 g/dL Normal [facility] Comment on above: Performed By: #### C MP, PHOS ####[facility] [address] [place] [address]Dr. Farhat Leal Glucose [Mass/Vol] 287 mg/dL Critically high 74-106 T [facility] Comment on above: Performed By: #### C CARA, PHOS ####[facility] [address] [place], [place] [address]Dr. Farhat Leal Potassium [Moles/Vol] 3.9 mmol/L Normal 3.5-5.1 [facility] Comment on above: Performed By: #### C CARA, PHOS ####[facility] [address] [place], [place] [address]Dr. Farhat Leal Protein [Mass/Vol] 5.8 g/dL Critically low 6.4-8.2 [facility] Comment on above: Performed By: #### C CARA, PHOS ####[facility] [address] [place], [place] [address]Dr. Farhat Leal Sodium [Moles/Vol] 132 mmol/L Critically low 136-145 [facility] Comment on above: Performed By: #### C CARA, PHOS ####[facility] [address] [place], [place] [address]Dr. Farhat Leal Urea nitrogen [Mass/Vol] 23.0 mg/dL Critically high 7.0-18.0 [facility] Comment on above: Performed By: #### C MP, PHOS ####[facility] [address] [place], [place] [address]Dr. Farhat Leal Urea nitrogen/Creatinine [Mass ratio] 22.3 mg/mg Normal [facility] Comment on above: Performed By: #### C MP, PHOS ####[facility] [address] [place] [id number]. Farhat Leal FK506 (TACROLIMUS) WHOLE BLO ODon 01-21-2022 Tacrolimus (FK506), Blood 12.2 ng/mL Normal 2.0-20.0 [facility] Comment on above: Result Comment: Trou gh (immediately following transplant) 15.0 . Trough (steady state, 2 weeks or more after transplant): 3.0 - 8.0 . Performed by LC-MS/MS technology. Performed By: #### F K506T ####[facility] [address] [place] [id number]. Farhat Leal ACID FAST SMEAR AND CXon Acid Fast Culture Negative Normal [facility] Comment on above: Result Comment: No a abdiel fast bacilli isolated after 6 weeks. Performed By: #### A FB ####[facility] [address] [place] [address]Dr. Farhat Leal Acid Fast Smear Negative Normal [facility] Comment on above: Performed By: #### A FB ####[facility] [address] [place] [id number]. Farhat Leal [employer] Specimen Processing Tissue Grinding Normal [facility] Comment on above: Performed By: #### A FB ####[facility] [address] [place] [address]Dr. Farhat Leal CNPUnited States Air Force [facility] 01-20-2022 DIAMANTEN Telephone (KIMBERLY) ALEX ALMONTE ([id number]) 1945 M TRN Date Time Provider Department 01/20/22 VAN OLIVAREZ During your visit today, we recorded the following information about you: Van Olivarez APRN.CNP 01/20/2022 1:14 PM Signed Labs noted from yesterday. Pt is currently residing at [facility], I spoke with the Nurse, the results has been addressed by Physician caring for pt. He had been placed on Chlor Con and this has been discontinued and hyperkalemia has been treated. Van Olivarez APRN.DIAMANTE Allergies As of Date: 01/20/2022 Noted Allergy Reaction PYRIDOSTIGMINE BROMIDE 08/04/2021 8 - GI Upset Date Reviewed: 01/15/2022 Reviewed by: Raquel Tai APRN.INSPECTOR CONVEYOR LINE - Fully Assessed Reason for Visit: Results [...] by mouth daily with lunch. 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 Atherosclerosis of [place] artery of extremity w*11/29/2021 Malnutrition of moderate degree (HCC) [E44.0] 12/01/2021 Dermatitis associated with moisture [L30.8] 12/04/2021 Encounter Status:Closed by VAN OLIVAREZ on 01/20/22 Normal [facility] Orders Onlyon 01-20-2022 Orders Only [id number] Alex Almonte 1945 Date Provider Department Center 01/20/2022 Francisco Javier-SUSIE HERNANDES [facility] No family history on file Normal [facility] PROF 14(COMP METB)on 022 Albumin [Mass/Vol] 1.9 g/dL Critically low 3.4-5.0 [facility] Comment on above: Performed By: #### C MP ####[facility] [address] [place] [address]Dr. Farhat Leal Albumin/Globulin [Mass ratio] 0.5 {ratio} Normal [facility] Comment on above: Performed By: #### C MP ####[facility] [address] [place] [address]Dr. Farhat Leal ALP [Catalytic activity/Vol] 78 U/L Normal 46-116 [facility] Comment on above: Performed By: #### C MP ####[facility] [address] [place] [address]Dr. Farhat Leal ALT [Catalytic activity/Vol] 22 U/L Normal 16-63 [facility] Comment on above: Performed By: #### C MP ####[facility] [address] [place] [id number]. Farhat Leal Anion gap [Moles/Vol] 8.0 mmol/L Normal [facility] Comment on above: Performed By: #### C MP ####[facility] [address] [place] [address]Dr. Farhat Leal AST [Catalytic activity/Vol] 92 U/L Critically high 15-37 [facility] Comment on above: Performed By: #### C MP ####[facility] [address] [place] [address]Dr. Farhat Leal Bilirubin [Mass/Vol] 0.7 mg/dL Normal 0.2-1.0 [facility] Comment on above: Performed By: #### C MP ####[facility] [address] [place], [place] [address]Dr. Farhat Leal Calcium [Mass/Vol] 7.8 mg/dL Critically low 8.5-10.1 [facility] Comment on above: Performed By: #### C MP ####[facility] [address] [place], [place] [address]Dr. Farhat Leal Chloride [Moles/Vol] 99 mmol/L Normal 98-107 [facility] Comment on above: Performed By: #### C MP ####[facility] [address] [place], [place] [address]Dr. Farhat Leal CO2 [Moles/Vol] 30.9 mmol/L Normal 21.0-32.0 [facility] Comment on above: Performed By: #### C MP ####[facility] [address] [place], [place] [address]Dr. Farhat Elvis Creatinine [Mass/Vol] 0.95 mg/dL Normal 0.70-1.30 [facility] Comment on above: Performed By: #### C MP ####[facility] [address] [place], [place] [address]Dr. Farhat Elvis EGFR-AF JORDANIAN >60 Normal >=60 [facility] Comment on above: Performed By: #### C MP ####[facility] [address] [place], [place] [address]Dr. Farhat Leal EGFR-NON AF JORDANIAN >60 Normal >=60 [facility] Comment on above: Performed By: #### C MP ####[facility] [address] [place] [address]Dr. Farhat Leal Globulin (S) [Mass/Vol] 3.9 g/dL Normal [facility] Comment on above: Performed By: #### C MP ####[facility] [address] [place] [address]Dr. Farhat Leal Glucose [Mass/Vol] 124 mg/dL Critically high 74-106 T [facility] Comment on above: Performed By: #### C MP ####[facility] [address] [place] [address]Dr. Farhat Leal Potassium [Moles/Vol] 5.9 mmol/L Critically high 3.5-5.1 [facility] Comment on above: Performed By: #### C MP ####[facility] [address] [place] [address]Dr. Farhat Leal Protein [Mass/Vol] 5.8 g/dL Critically low 6.4-8.2 [facility] Comment on above: Performed By: #### C MP ####[facility] [address] [place], [place] [address]Dr. Farhat Leal Sodium [Moles/Vol] 132 mmol/L Critically low 136-145 [facility] Comment on above: Performed By: #### C MP ####[facility] Clrqmonmcj[address] [place] [address]Dr. Farhat Leal Urea nitrogen [Mass/Vol] 18.0 mg/dL Normal 7.0-18.0 [facility] Comment on above: Performed By: #### C MP ####[facility] Cwtcckukqk79[address] [place] [address]Dr. Farhat Leal Urea nitrogen/Creatinine [Mass ratio] 18.9 mg/mg Normal [facility] Comment on above: Performed By: #### C MP ####[facility] Bjwpavmjsx6035 [place] [address]Dr. Farhat Leal INR (POC)on 01-12-2022 INR Coag (PPP) [Relative time] 2.6 {INR} High 0.8 - 1.2 [facility] Internal Quality Check Acceptable Cl [facility] ACID FAST SMEAR AND CXon Acid Fast Culture Negative Normal [facility] Comment on above: Result Comment: No a abdiel fast bacilli isolated after 6 weeks. Performed By: #### A FB ####[facility] Gabbtbbojp2571 [place], [place] [address]Ao. Farhat Leal Acid Fast Smear Negative Normal [facility] Comment on above: Performed By: #### A FB ####[facility] Jykuxmuksh7855 [place] [id number]. Farhat Leal [employer] Specimen Processing Direct [facility] Comment on above: Performed By: #### A FB ####[facility] Qkgvaefknn[address] [place], [place] [id number]. Farhat Leal ACID FAST SMEAR AND CXon Acid Fast Culture Negative Normal [facility] Comment on above: Result Comment: No a abdiel fast bacilli isolated after 6 weeks. Performed By: #### A FB ####[facility] Bvdakxqrmg[address] [place], [place] [id number]. Madelynlorri Leal Acid Fast Smear Negative Normal [facility] Comment on above: Performed By: #### A FB ####[facility] Eufmdmjkzb4931 [place] [id number]. Farhat Leal [employer] Specimen Processing Tissue [facility] Comment on above: Performed By: #### A FB ####[facility] Hfbepljlbr0854 [place] [id number]. Farhat Leal FUNGAL CULTUREon 01-02-2022 Fungus (Mycology) Culture Final report Normal [facility] Comment on above: Performed By: #### C XFUN ####[facility] Exohxtbjvn[address] [place], [place] [id number]. Farhat Leal Fungus Stain Final report Normal [facility] Comment on above: Performed By: #### C XFUN ####[facility] [address] [place] [address]. Farhat Leal Result 1 Comment Normal [facility] Comment on above: Result Comment: ANNI/ Calcofluor preparation: no fungus observed. Performed By: #### C XFUN ####[facility] T[address] [place], [place] [address]Skylar Leal Result Comment: No y east or mold isolated after 4 weeks. FK506 (TACROLIMUS) WHOLE BLO ODon 12-31-2021 Tacrolimus (FK506), Blood 7.7 ng/mL Normal 2.0-20.0 [facility] Comment on above: Result Comment: Trou gh (immediately following transplant) 15.0 . Trough (steady state, 2 weeks or more after transplant): 3.0 - 8.0 . Performed by LC-MS/MS technology. Performed By: #### F K506T ####[facility] Ev[address]qeg[address] [place] [address]. Farhat Leal HEMOGRAM AND PLATELon 2021 Hematocrit (Bld) [Volume fraction] 27.1 % Critically low 42.0-54.0 [facility] Comment on above: Performed By: #### H H ####[facility] Ldtjuyrow[address] [place], [place] [address]Skylar Leal Hemoglobin (Bld) [Mass/Vol] 8.7 g/dL Critically low 14.0-18.0 [facility] Comment on above: Performed By: #### H H ####[facility] Ijaydsiooa[address] [place], [place] [address]Skylar Leal MCH (RBC) [Entitic mass] 30.3 pg Normal 25.9-34.0 [facility] Comment on above: Performed By: #### H H ####[facility] Nxqjnfhaex[address] [place], [place] [address]Skylar Leal MCHC (RBC) [Mass/Vol] 32.1 g/dL Normal 29.9-35.2 [facility] Comment on above: Performed By: #### H H ####[facility] Jbellwaorf[address] [place], [place] [address]Skylar Leal MCV (RBC) [Entitic vol] 94.4 fL Critically high 80.0-94.0 [facility] Comment on above: Performed By: #### H H ####[facility] Tfhiwsupqc3102 [place] [address]Dr. Farhat Leal PLT 355 103/ul Normal 150-450 [facility] Comment on above: Performed By: #### H H ####[facility] Sblnrilkqq9729 [place] [address]Dr. Farhat Elvis RBC 2.87 106/ul Critically low 4.70-6.10 [facility] Comment on above: Performed By: #### H H ####[facility] Roeuuvqorx0151 [place] [address]Dr. Madelynlorri Elvis WBC 6.0 103/ul Normal 4.0-11.0 [facility] Comment on above: Performed By: #### H H ####[facility] Ztacrbuhxe5966 [place] [address]Dr. Farhat Leal PHOSPHORUSon 12-29-2021 Phosphate [Mass/Vol] 2.5 mg/dL Critically low 2.6-4.7 [facility] Comment on above: Performed By: #### P HOS, CMP ####[facility] K[address]fg[address] [place], [place] [address]DrSkylar Leal PROF 14(COMP METB)on 022 Albumin [Mass/Vol] 1.7 g/dL Critically low 3.4-5.0 [facility] Comment on above: Performed By: #### P HOS, CMP ####[facility] Zhtbfpozxw2672 [place] [address]Dr. Farhat Leal Albumin/Globulin [Mass ratio] 0.5 {ratio} Normal [facility] Comment on above: Performed By: #### P HOS, CMP ####[facility] Axkbgvgpnr8034[address] [place], [place] [address]Dr. Madelynlorri Leal ALP [Catalytic activity/Vol] 78 U/L Normal 46-116 [facility] Comment on above: Performed By: #### P HOS, CMP ####[facility] Siyreuaoba[address] [place], [place] [address]Dr. Farhat Leal ALT [Catalytic activity/Vol] 12 U/L Critically low 16-63 [facility] Comment on above: Performed By: #### P HOS, CMP ####[facility] Qkhddfecus6611 [place] [address]Dr. Farhat Leal Anion gap [Moles/Vol] 5.1 mmol/L Normal [facility] Comment on above: Performed By: #### P HOS, CMP ####[facility] Wjafrdnqbq6058 [place] [address]Dr. Farhat Leal AST [Catalytic activity/Vol] 22 U/L Normal 15-37 [facility] Comment on above: Performed By: #### P HOS, CMP ####[facility] Chicnbnplu[address] [place], [place] [address]Dr. Farhat Leal Bilirubin [Mass/Vol] 0.6 mg/dL Normal 0.2-1.0 [facility] Comment on above: Performed By: #### P HOS, CMP ####[facility] Ogcjoelycq3[address] [place], [place] [address]Dr. Farhat Leal Calcium [Mass/Vol] 8.1 mg/dL Critically low 8.5-10.1 [facility] Comment on above: Performed By: #### P HOS, CMP ####[facility] Tiwkgpnzuc[address]37[address] [place], [place] [address]Dr. Farhat Leal Chloride [Moles/Vol] 100 mmol/L Normal 98-107 [facility] Comment on above: Performed By: #### P HOS, CMP ####[facility] Mcfdqxaqel4463 [place] [address]Dr. Farhat Leal CO2 [Moles/Vol] 34.2 mmol/L Critically high 21.0-32.0 [facility] Comment on above: Performed By: #### P HOS, CMP ####[facility] Dthfyzwopi8959 [place] [address]Dr. Farhat Leal Creatinine [Mass/Vol] 0.92 mg/dL Normal 0.70-1.30 [facility] Comment on above: Performed By: #### P HOS, CMP ####[facility] Raoollptxj9591 [place] [address]Dr. Farhat Leal EGFR-AF JORDANIAN >60 Normal >=60 [facility] Comment on above: Performed By: #### P HOS, CMP ####[facility] Gdilbqaays3743 [place] [address]Dr. Farhat Leal EGFR-NON AF JORDANIAN >60 Normal >=60 [facility] Comment on above: Performed By: #### P HOS, CMP ####[facility] Zenuzgxuue6471 [place] [address]Dr. Farhat Leal Globulin (S) [Mass/Vol] 3.3 g/dL Normal [facility] Comment on above: Performed By: #### P HOS, CMP ####[facility] Fsrxlhfnsh[address] [place], [place] [address]Dr. Farhat Leal Glucose [Mass/Vol] 116 mg/dL Critically high 74-106 [facility] Comment on above: Performed By: #### P HOS, CMP ####[facility] Ivxleyyrkw[address] [place], [place] [address]Dr. Farhat Leal Potassium [Moles/Vol] 3.3 mmol/L Critically low 3.5-5.1 [facility] Comment on above: Performed By: #### P HOS, CMP ####[facility] Nvswmkvlgc[address] [place], [place] [address]Dr. Farhat Leal Protein [Mass/Vol] 5.0 g/dL Critically low 6.4-8.2 [facility] Comment on above: Performed By: #### P HOS, CMP ####[facility] Snmkfobdvq6203 [place] [address]Dr. Farhat Leal Sodium [Moles/Vol] 136 mmol/L Normal 136-145 [facility] Comment on above: Performed By: #### P HOS, CMP ####[facility] Wgwvxchhih[address] [place], [place] [address]Dr. Farhat Leal Urea nitrogen [Mass/Vol] 14.0 mg/dL Normal 7.0-18.0 [facility] Comment on above: Performed By: #### P HOS, CMP ####[facility] Ygvyoamcog[address] [place], [place] [address]Dr. Farhat Leal Urea nitrogen/Creatinine [Mass ratio] 15.2 mg/mg Normal [facility] Comment on above: Performed By: #### P HOS, CMP ####[facility] Jphyspwwfz96[address] [place], [place] [address]Dr. Farhat Leal PROTIMEon 12-29-2021 INR Coag (PPP) [Relative time] 1.26 {INR} Normal [facility] Comment on above: Performed By: #### P T ####[facility] Lcigqcsqil[address] [place], [place] [address]Dr. Farhat Leal INR GUIDELINES SEE BELOW Normal [facility] Comment on above: Result Comment: MALINA RED INR: 2.0 - 3.0 CONDITIONS NOT LISTED BELOW 2.5 - 3.5 FOR PROSTHETIC HEART VALVE REPLACEMENT 2.5 - 3.5 RECURRENT THROMBOSIS Performed By: #### P T ####[facility] Zyhadtpqze[address] [place], [place] [address]Dr. Farhat Leal PT Coag (PPP) [Time] 13.4 s Critically high 9.0-11.6 [facility] Comment on above: Performed By: #### P T ####[facility] Oosfhkeaxa[address] [place], [place] [address]Dr. Fahrat Leal XR MODIFIED BARIUM SWALLOWon 12-25-2021 XR MODIFIED BARIUM SWALLOW Normal [facility] FUNGAL CULTUREon 12-24-2021 Fungus (Mycology) Culture Final report Normal [facility] Comment on above: Performed By: #### C XFUN ####[facility] Cjkmqghnic[address] [place], [place] [address]Dr. Farhat Leal Fungus Stain Final report Normal [facility] Comment on above: Performed By: #### C XFUN ####[facility] Loxtvikpjg67[address] [place], [place] [address]Dr. Farhat Leal Result 1 Comment Normal [facility] Comment on above: Result Comment: ANNI/ Calcofluor preparation: no fungus observed. Performed By: #### C XFUN ####[facility] Frypbvondw[address] [place], [place] [address]Dr. Farhat Leal Result Comment: No y east or mold isolated after 4 weeks. VANCOMYCIN TROUGHon 12-21-19 VANCOMYCIN TROUGH 14.4 ug/ml Normal 5.0-20.0 [facility] Comment on above: Performed By: #### V ANCT ####[facility] Jgohnyxnto9421 [place] [address]Dr. Farhat Leal CBC AUTO DIFFon 12-14-2021 BASO # 0.0 103/ul Normal 0.0-0.1 [facility] Comment on above: Performed By: #### C BC ####[facility] Oyguxppjev5371 [place] [address]Dr. Farhat Leal Basophils/100 WBC (Bld) 0.2 % Normal 0.2-2.0 [facility] Comment on above: Performed By: #### C BC ####[facility] Azoyjkzdpi43[address] [place], [place] [address]Dr. Farhat Leal EO # 0.2 103/ul Normal 0.0-0.7 [facility] Comment on above: Performed By: #### C BC ####[facility] Ykodlxvswl1836 [place] [address]Dr. Farhat Leal Eosinophils/100 WBC (Bld) 2.1 % Normal 0.9-7.0 [facility] Comment on above: Performed By: #### C BC ####[facility] Xolyczyzgn4739 [place] [address]Dr. Farhat Leal Erythrocyte distribution width (RBC) [Ratio] 18.2 % Critically high 11.0-15.0 [facility] Comment on above: Performed By: #### C BC ####[facility] Dtxgtwbusm1349 [place] [address]DrSkylar Leal Hematocrit (Bld) [Volume fraction] 25.8 % Critically low 42.0-54.0 [facility] Comment on above: Performed By: #### C BC ####[facility] Ukbhmeqyeb6457 [place] [address]Dr. Farhat Leal Hemoglobin (Bld) [Mass/Vol] 8.0 g/dL Critically low 14.0-18.0 [facility] Comment on above: Performed By: #### C BC ####[facility] Qrfhtrhryc0104 [place] [address]DrSkylar Leal IG # 0.08 10e3/ul Critically high 0.00-0.03 [facility] Comment on above: Performed By: #### C BC ####[facility] Azqzxulbys9170 [place] [address]DrSkylar Leal IG % 0.7 % Critically high 0.0-0.5 [facility] Comment on above: Performed By: #### C BC ####[facility] Bcaoyiudmu2309 [place] [address]DrSkylar Leal LYMPH # 0.9 103/ul Critically low 1.2-3.8 [facility] Comment on above: Performed By: #### C BC ####[facility] Iesclrbzac4578 [place] [address]DrSkylar Leal Lymphocytes/100 WBC (Bld) 8.7 % Critically low 20.5-60.0 [facility] Comment on above: Performed By: #### C BC ####[facility] Gpvnaugqny1537 [place] [address]DrSkylar Leal MANUAL DIFF REQ NO Normal [facility] Comment on above: Performed By: #### C BC ####[facility] Txzgmgador2724 [place] [address]DrSkylar Leal MCH (RBC) [Entitic mass] 30.0 pg Normal 25.9-34.0 [facility] Comment on above: Performed By: #### C BC ####[facility] Uixakrhzrq3956 [place] [address]DrSkylar Leal MCHC (RBC) [Mass/Vol] 31.0 g/dL Normal 29.9-35.2 [facility] Comment on above: Performed By: #### C BC ####[facility] Vmxbykgfhj1814 [place] [address]DrSkylar Leal MCV (RBC) [Entitic vol] 96.6 fL Critically high 80.0-94.0 [facility] Comment on above: Performed By: #### C BC ####[facility] Mdgelolxly4686 [place] [address]Dr. Farhat Leal MONO # 0.7 103/ul Normal 0.3-0.8 [facility] Comment on above: Performed By: #### C BC ####[facility] Yzbtawhdba5672 [place] [address]Dr. Farhat Leal Monocytes/100 WBC (Bld) 6.7 % Normal 1.7-12.0 [facility] Comment on above: Performed By: #### C BC ####[facility] Spgajbztil5563 [place] [address]Dr. Farhat Leal NEUT # 8.8 103/ul Critically high 1.4-6.5 [facility] Comment on above: Performed By: #### C BC ####[facility] Xzqrujgkqr2964 [place] [address]Dr. Farhat Leal Neutrophils/100 WBC (Bld) 81.6 % Critically high 43.0-75.0 [facility] Comment on above: Performed By: #### C BC ####[facility] Dxvrjufgac6757 [place] [address]Dr. Farhat Leal Platelet mean volume (Bld) [Entitic vol] 10.5 fL Normal 9.5-13.5 [facility] Comment on above: Performed By: #### C BC ####[facility] Vksvbfferw9581 [place] [address]Dr. Farhat Leal PLT 285 103/ul Normal 150-450 [facility] Comment on above: Performed By: #### C BC ####[facility] Vqnfgdwdnw9692 [place] [address]Dr. Farhat Leal RBC 2.67 106/ul Critically low 4.70-6.10 [facility] Comment on above: Performed By: #### C BC ####[facility] Homskmnsbc9119 [place] [address]Dr. Farhat Leal WBC 10.7 103/ul Normal 4.0-11.0 [facility] Comment on above: Performed By: #### C BC ####[facility] Pnemovytgx1558 [place] [address]Dr. Farhat Leal PROF CHEM 8 (BAS METB)on Anion gap [Moles/Vol] 12.4 mmol/L Normal [facility] Comment on above: Performed By: #### B MP ####[facility] Dshggeqpcw0635 [place] [address]Dr. Farhat Leal Calcium [Mass/Vol] 7.8 mg/dL Critically low 8.5-10.1 [facility] Comment on above: Performed By: #### B MP ####[facility] Axzzidjrhk[address] [place], [place] [address]Dr. Farhat Leal Chloride [Moles/Vol] 102 mmol/L Normal 98-107 [facility] Comment on above: Performed By: #### B MP ####[facility] Wolzbkfjmn0734[address] [place], [place] [address]Dr. Farhat Leal CO2 [Moles/Vol] 28.1 mmol/L Normal 21.0-32.0 [facility] Comment on above: Performed By: #### B MP ####[facility] Efpeiybztc89[address] [place], [place] [address]Dr. Farhat Leal Creatinine [Mass/Vol] 1.24 mg/dL Normal 0.70-1.30 [facility] Comment on above: Performed By: #### B MP ####[facility] Wjhjvypmoc7[address] [place], [place] [address]Dr. Farhat Leal EGFR-AF JORDANIAN >60 Normal >=60 [facility] Comment on above: Performed By: #### B MP ####[facility] Ntdiqpglbx189[address] [place], [place] [address]Dr. Farhat Leal EGFR-NON AF JORDANIAN 57 mL/min/1.73m2 Critically low >=60 [facility] Comment on above: Performed By: #### B MP ####[facility] Ybnxzyjhrl[address] [place], [place] [address]DrSkylar Leal Glucose [Mass/Vol] 296 mg/dL Critically high 74-106 T [facility] Comment on above: Performed By: #### B MP ####[facility] Gmmmcmdmtm[address] [place], [place] [address]Dr. Farhat Leal Potassium [Moles/Vol] 3.5 mmol/L Normal 3.5-5.1 [facility] Comment on above: Performed By: #### B MP ####[facility] O[address]acqcgwbt[address] [place], [place] [address]Dr. Farhat Leal Sodium [Moles/Vol] 139 mmol/L Normal 136-145 [facility] Comment on above: Performed By: #### B MP ####[facility] Kfhclsrjgg[address] [place], [place] [address]Dr. Fahrat Leal Urea nitrogen [Mass/Vol] 27.0 mg/dL Critically high 7.0-18.0 [facility] Comment on above: Performed By: #### B MP ####[facility] Smngjsoznb9[address] [place], [place] [address]Dr. Farhat Leal Urea nitrogen/Creatinine [Mass ratio] 21.8 mg/mg Normal [facility] Comment on above: Performed By: #### B MP ####[facility] Iejvxyzrpb[address] [place], [place] [address]Dr. Farhat Leal PROTIMEon 12-14-2021 INR Coag (PPP) [Relative time] 3.36 {INR} Normal [facility] Comment on above: Performed By: #### P T ####[facility] Qwnlsxhiiy4[address] [place], [place] [address]Dr. Farhat Leal INR GUIDELINES SEE BELOW Normal [facility] Comment on above: Result Comment: MALINA RED INR: 2.0 - 3.0 CONDITIONS NOT LISTED BELOW 2.5 - 3.5 FOR PROSTHETIC HEART VALVE REPLACEMENT 2.5 - 3.5 RECURRENT THROMBOSIS Performed By: #### P T ####[facility] Rsdxzovgld22[address] [place], [place] [address]Dr. Farhat Leal PT Coag (PPP) [Time] 33.5 s Critically high 9.0-11.6 [facility] Comment on above: Performed By: #### P T ####[facility] Voauhkrnfb8586 [place], [place] [address]PwSkylar Leal XR CHEST 1 Von 12-14-2021 XR CHEST 1 V Normal [facility] No Panel Informationon 12-01 BLANK _ [facility] Implant Date 04/22/2012 [facility] PACEMAKER CLINIC CHECKon AMS Duration (ms) [address] [facility] AMS Fallback Rate (bpm) DDIR [facility] AV Delay Paced (ms) 300 ms [facility] AV Delay Sensed (ms) 300 ms [facility] Jaciel LV Pacing Polarity Unknown [facility] Jaciel LV Sensing Polarity Unknown [facility] Jaicel RA Pacing Amplitude (volts) 2.4 V [facility] Lower Rate (bpm) 60 {beats}/min [facility] Max Sensor Rate (bmp) 130 {beats}/min [facility] Model 118626 Monika Dominguez [facility] Model 521230 [facility] Model 186201 [facility] Pacemaker Dependent? NO [facility] PM-Device Mfg BIO [facility] PM-PMT Intervention ON [facility] PM-PVC Intervention ON [facility] PM-Rate Modulation Acceleration Reaction 4 s [facility] PM-Rate Modulation Deceleration 0.5 m [facility] PM-Rate Modulation [place] 23 [facility] PM-Rate Modulation Threshold Medium [facility] RA Bipolar Impedance ohms 448 ohm [facility] Rhythm AF with controlled ventricular rate. [facility] RV Bipolar Impedance ohms 390 ohm [facility] Serial Number [id number] [facility] Serial Number [id number] [facility] Serial Number [id number] [facility] Thresh [...] BNPon 11-28-2021 Natriuretic peptide B (Bld) [Mass/Vol] 06676.0 pg/mL Critically high <=1,800.0 [facility] Comment on above: Performed By: #### C MP, BNP, CRP ####[facility] Gvrxduodmi[address] [place], [place] [address]Dr. Farhat Leal CBC AUTO DIFFon 11-28-2021 BASO # 0.0 103/ul Normal 0.0-0.1 [facility] Comment on above: Performed By: #### C BC ####[facility] Ulvyroouqs90[address] [place], [place] [address]Dr. Farhat Leal Basophils/100 WBC (Bld) 0.3 % Normal 0.2-2.0 [facility] Comment on above: Performed By: #### C BC ####[facility] Vcxxifdpiw3[address] [place], [place] [address]Dr. Farhat Leal EO # 0.1 103/ul Normal 0.0-0.7 [facility] Comment on above: Performed By: #### C BC ####[facility] Qtezogkmbv54[address] [place], [place] [address]Dr. Farhat Leal Eosinophils/100 WBC (Bld) 1.0 % Normal 0.9-7.0 [facility] Comment on above: Performed By: #### C BC ####[facility] Addpdoyjdo3940 [place] [address]Dr. Farhat Leal Erythrocyte distribution width (RBC) [Ratio] 14.0 % Normal 11.0-15.0 [facility] Comment on above: Performed By: #### C BC ####[facility] [address]mzauzxrny[address] [place], [place] [address]Dr. Farhat Leal Hematocrit (Bld) [Volume fraction] 27.6 % Critically low 42.0-54.0 [facility] Comment on above: Performed By: #### C BC ####[facility] [address]qdkgcxx[address] [place], [place] [address]Dr. Farhat Leal Hemoglobin (Bld) [Mass/Vol] 9.0 g/dL Critically low 14.0-18.0 [facility] Comment on above: Performed By: #### C BC ####[facility] Xvflliavdj[address] [place], [place] [address]Dr. Farhat Lela IG # 0.12 10e3/ul Critically high 0.00-0.03 [facility] Comment on above: Performed By: #### C BC ####[facility] Hcamzpwvwh[address] [place], [place] [address]Dr. Farhat Leal IG % 1.0 % Critically high 0.0-0.5 [facility] Comment on above: Performed By: #### C BC ####[facility] Aeeiuwoztw[address] [place], [place] [address]Dr. Farhat Leal LYMPH # 1.2 103/ul Normal 1.2-3.8 [facility] Comment on above: Performed By: #### C BC ####[facility] Kmzpdlrszb38[address] [place], [place] [address]Dr. Farhat Leal Lymphocytes/100 WBC (Bld) 9.9 % Critically low 20.5-60.0 [facility] Comment on above: Performed By: #### C BC ####[facility] Thxfgrigfd0[address] [place], [place] [address]Dr. Farhat Leal MANUAL DIFF REQ NO Normal [facility] Comment on above: Performed By: #### C BC ####[facility] Wfanvpohpg0062 [place] [id number]. Farhat Elvis MCH (RBC) [Entitic mass] 30.0 pg Normal 25.9-34.0 [facility] Comment on above: Performed By: #### C BC ####[facility] Pzgiiaugsx0101 [place] [id number]. Farhat Elvis MCHC (RBC) [Mass/Vol] 32.6 g/dL Normal 29.9-35.2 [facility] Comment on above: Performed By: #### C BC ####[facility] Egshtlywjz2992 [place] [address]Dr. Madelynlorri Leal MCV (RBC) [Entitic vol] 92.0 fL Normal 80.0-94.0 [facility] Comment on above: Performed By: #### C BC ####[facility] Dyxesminir13[address] [place], [place] [address]DrSkylar Leal MONO # 1.1 103/ul Critically high 0.3-0.8 [facility] Comment on above: Performed By: #### C BC ####[facility] Kochnffahh0193 [place] [address]Dr. Farhat Leal Monocytes/100 WBC (Bld) 9.3 % Normal 1.7-12.0 [facility] Comment on above: Performed By: #### C BC ####[facility] Lihrwaznjs66[address] [place], [place] [address]Dr. Farhat Leal NEUT # 9.3 103/ul Critically high 1.4-6.5 [facility] Comment on above: Performed By: #### C BC ####[facility] Jct[address]kkuj[address] [place], [place] [id number] Leal Neutrophils/100 WBC (Bld) 78.5 % Critically high 43.0-75.0 [facility] Comment on above: Performed By: #### C BC ####[facility] Hspeebxbfk4492 [place] [address]DrSkylar Leal Platelet mean volume (Bld) [Entitic vol] 9.6 fL Normal 9.5-13.5 [facility] Comment on above: Performed By: #### C BC ####[facility] Xrxqotjqij8025 [place], [place] [address]Ue. Farhat Leal PLT 357 103/ul Normal 150-450 [facility] Comment on above: Performed By: #### C BC ####[facility] Ebshfgdnyx0971 [place], [place] [address]Ir. Farhat Leal RBC 3.00 106/ul Critically low 4.70-6.10 [facility] Comment on above: Performed By: #### C BC ####[facility] Tefrrezvut1347 [place], [place] [address]Km. Farhat Leal WBC 11.8 103/ul Critically high 4.0-11.0 [facility] Comment on above: Performed By: #### C BC ####[facility] Wzjkbhjtbc0218 [place], [place] [address]Np. Farhat Leal CRPon 11-28-2021 CRP 20.9 mg/dL Critically high <=1.0 [facility] Comment on above: Performed By: #### C MP, BNP, CRP ####[facility] Vyksqhbvnt1779 [place] [id number]. Farhat Leal CULTURE OTHERon 11-28-2021 CULTURE OTHER Normal [facility] Comment on above: Performed By: #### O THCX ####[facility] Sbmdjjtqlz0895 [place] [id number]. Farhat Leal CULTURE OTHER Normal [facility] Comment on above: Performed By: #### O THCX ####[facility] Ztsgmgczvp0440 [place], [place] [address]Nd. Farhat Leal PROF 14(COMP METB)on 022 Albumin [Mass/Vol] 1.4 g/dL Critically low 3.4-5.0 [facility] Comment on above: Performed By: #### C MP, BNP, CRP ####[facility] Omnugpjzua9698 [place] [address]Dr. Farhat Leal Albumin/Globulin [Mass ratio] 0.4 {ratio} Normal [facility] Comment on above: Performed By: #### C MP, BNP, CRP ####[facility] Xakzbkpolm1823 [place] [address]Dr. Farhat Elvis ALP [Catalytic activity/Vol] 82 U/L Normal 46-116 [facility] Comment on above: Performed By: #### C MP, BNP, CRP ####[facility] Gzrwcecoje8746 [place] [address]Dr. Madelynlorri Leal ALT [Catalytic activity/Vol] 20 U/L Normal 16-63 [facility] Comment on above: Performed By: #### C MP, BNP, CRP ####[facility] Bdqnytxrwa[address] [place], [place] [address]Dr. Farhat Leal Anion gap [Moles/Vol] 13.0 mmol/L Normal [facility] Comment on above: Performed By: #### C MP, BNP, CRP ####[facility] Dfcanlqfxl029[address] [place], [place] [address]Dr. Farhat Leal AST [Catalytic activity/Vol] 33 U/L Normal 15-37 [facility] Comment on above: Performed By: #### C MP, BNP, CRP ####[facility] Sfscapvlzj40[address] [place], [place] [address]Dr. Farhat Leal Bilirubin [Mass/Vol] 0.7 mg/dL Normal 0.2-1.0 [facility] Comment on above: Performed By: #### C MP, BNP, CRP ####[facility] Kseosjweak9065[address] [place], [place] [address]Dr. Farhat Leal Calcium [Mass/Vol] 8.4 mg/dL Critically low 8.5-10.1 [facility] Comment on above: Performed By: #### C MP, BNP, CRP ####[facility] Ojcczcsdpc[address] [place], [place] [address]Dr. Farhat Leal Chloride [Moles/Vol] 100 mmol/L Normal 98-107 [facility] Comment on above: Performed By: #### C MP, BNP, CRP ####[facility] Tyynegrddc482[address] [place], [place] [address]Dr. Farhat Leal CO2 [Moles/Vol] 23.7 mmol/L Normal 21.0-32.0 [facility] Comment on above: Performed By: #### C MP, BNP, CRP ####[facility] Jyhsxnmpdk8518 [place] [address]Dr. Farhat Leal Creatinine [Mass/Vol] 1.70 mg/dL Critically high 0.70-1.30 [facility] Comment on above: Performed By: #### C MP, BNP, CRP ####[facility] Wgqivjhjgi2127[address] [place], [place] [address]Dr. Farhat Leal EGFR-AF JORDANIAN 48 mL/min/1.73m2 Critically low >=60 [facility] Comment on above: Performed By: #### C MP, BNP, CRP ####[facility] Tqsaydqgin6048[address] [place], [place] [address]Dr. Farhat Leal EGFR-NON AF JORDANIAN 39 mL/min/1.73m2 Critically low >=60 [facility] Comment on above: Performed By: #### C MP, BNP, CRP ####[facility] Ibsqxqtgkt3494[address] [place], [place] [address]Dr. Farhat Leal Globulin (S) [Mass/Vol] 3.6 g/dL Normal [facility] Comment on above: Performed By: #### C MP, BNP, CRP ####[facility] Swjayajzrc336[address] [place], [place] [address]Dr. Farhat Leal Glucose [Mass/Vol] 232 mg/dL Critically high 74-106 T [facility] Comment on above: Performed By: #### C MP, BNP, CRP ####[facility] Qsxitazyir3500 [place] [address]Dr. Farhat Leal Potassium [Moles/Vol] 3.7 mmol/L Normal 3.5-5.1 [facility] Comment on above: Performed By: #### C MP, BNP, CRP ####[facility] Irrtngrpyj1456[address] [place], [place] [address]Dr. Farhat Leal Protein [Mass/Vol] 5.0 g/dL Critically low 6.4-8.2 [facility] Comment on above: Performed By: #### C MP, BNP, CRP ####[facility] Srveloyxng9186 [place] [address]Dr. Farhat Leal Sodium [Moles/Vol] 133 mmol/L Critically low 136-145 [facility] Comment on above: Performed By: #### C MP, BNP, CRP ####[facility] Grxxlydlqz4824 [place] [address]Dr. Farhat Leal Urea nitrogen [Mass/Vol] 52.0 mg/dL Critically high 7.0-18.0 [facility] Comment on above: Performed By: #### C MP, BNP, CRP ####[facility] Lawecmedxl2381 [place] [address]Dr. Farhat Leal Urea nitrogen/Creatinine [Mass ratio] 30.6 mg/mg Normal [facility] Comment on above: Performed By: #### C MP, BNP, CRP ####[facility] Tlkwgxylte9787 [place] [address]Dr. Farhat Leal PROTIMEon 11-28-2021 INR Coag (PPP) [Relative time] 1.29 {INR} Normal [facility] Comment on above: Performed By: #### P T ####[facility] Dmdxelwtpc[address] [place], [place] [address]Dr. Farhat Leal INR GUIDELINES SEE BELOW Normal [facility] Comment on above: Result Comment: MALINA RED INR: 2.0 - 3.0 CONDITIONS NOT LISTED BELOW 2.5 - 3.5 FOR PROSTHETIC HEART VALVE REPLACEMENT 2.5 - 3.5 RECURRENT THROMBOSIS Performed By: #### P T ####[facility] Xwiceawyhw3359 [place] [address]Dr. Farhat Leal PT Coag (PPP) [Time] 13.7 s Critically high 9.0-11.6 [facility] Comment on above: Performed By: #### P T ####[facility] Dawloaqjfg3801 [place] [address]Dr. Farhat Leal SED R[facility]Formerly [facility] 2021 SED RATE 77 mm/hr Critically high <=20 [facility] Comment on above: Performed By: #### S EDR ####[facility] Qrfstkmnbf3851 [place] [address]Dr. Farhat Leal XR CHEST 2 Von 11-28-2021 XR CHEST 2 V Normal [facility] BNPon 11-27-2021 Natriuretic peptide B (Bld) [Mass/Vol] 15063.0 pg/mL Critically high <=1,800.0 [facility] Comment on above: Performed By: #### B QUARRY WORKER, CMP, CRP ####[facility] Cevdqmdkhc9[address] [place], [place] [address]Dr. Farhat Elvis CBC AUTO DIFFon 11-27-2021 BASO # 0.0 103/ul Normal 0.0-0.1 [facility] Comment on above: Performed By: #### C BC ####[facility] Ucosiqansy4380[address] [place], [place] [address]Dr. Madelynlorri Leal Basophils/100 WBC (Bld) 0.2 % Normal 0.2-2.0 [facility] Comment on above: Performed By: #### C BC ####[facility] Wtpevsphaa09[address] [place], [place] [address]Dr. Farhat Leal EO # 0.2 103/ul Normal 0.0-0.7 [facility] Comment on above: Performed By: #### C BC ####[facility] Johqrcwwbh2508[address] [place], [place] [address]Dr. Farhat Elvis Eosinophils/100 WBC (Bld) 1.9 % Normal 0.9-7.0 [facility] Comment on above: Performed By: #### C BC ####[facility] Zdvulcpynv9[address] [place], [place] [address]Dr. Farhat Leal Erythrocyte distribution width (RBC) [Ratio] 13.9 % Normal 11.0-15.0 [facility] Comment on above: Performed By: #### C BC ####[facility] Yewdetacch157[address] [place], [place] [address]Dr. Madelynlorri Elvis Hematocrit (Bld) [Volume fraction] 28.7 % Critically low 42.0-54.0 [facility] Comment on above: Performed By: #### C BC ####[facility] Qzfulvdlxd9407 [place] [address]Dr. Farhat Leal Hemoglobin (Bld) [Mass/Vol] 9.3 g/dL Critically low 14.0-18.0 [facility] Comment on above: Performed By: #### C BC ####[facility] Vyljkqscma5324 [place] [address]Dr. Farhat Leal IG # 0.14 10e3/ul Critically high 0.00-0.03 [facility] Comment on above: Performed By: #### C BC ####[facility] Inrbqtuqhe8674 [place] [address]Dr. Farhat Leal IG % 1.2 % Critically high 0.0-0.5 [facility] Comment on above: Performed By: #### C BC ####[facility] Wutyppcjwr3964[address] [place], [place] [address]Dr. Farhat Leal LYMPH # 1.1 103/ul Critically low 1.2-3.8 [facility] Comment on above: Performed By: #### C BC ####[facility] Brejzijknb3484 [place] [address]Dr. Farhat Leal Lymphocytes/100 WBC (Bld) 9.4 % Critically low 20.5-60.0 [facility] Comment on above: Performed By: #### C BC ####[facility] Lqptlmalfd4711 [place] [address]Dr. Farhat Leal MANUAL DIFF REQ NO Normal [facility] Comment on above: Performed By: #### C BC ####[facility] Uqbzqwnzik[address] [place], [place] [address]Dr. Farhat Leal MCH (RBC) [Entitic mass] 29.7 pg Normal 25.9-34.0 [facility] Comment on above: Performed By: #### C BC ####[facility] Vnxqeirrdz1858 [place] [address]Dr. Farhat Leal MCHC (RBC) [Mass/Vol] 32.4 g/dL Normal 29.9-35.2 [facility] Comment on above: Performed By: #### C BC ####[facility] Tjydagatyt4356 [place] [address]Dr. Farhat Leal MCV (RBC) [Entitic vol] 91.7 fL Normal 80.0-94.0 [facility] Comment on above: Performed By: #### C BC ####[facility] Addlkmhthk6274 [place] [address]Dr. Farhat Leal MONO # 1.1 103/ul Critically high 0.3-0.8 [facility] Comment on above: Performed By: #### C BC ####[facility] Gkwdyxljyf2617 [place] [address]Dr. Farhat Leal Monocytes/100 WBC (Bld) 9.7 % Normal 1.7-12.0 [facility] Comment on above: Performed By: #### C BC ####[facility] Djcuwuzkkq[address] [place], [place] [address]Dr. Farhat Leal NEUT # 9.2 103/ul Critically high 1.4-6.5 [facility] Comment on above: Performed By: #### C BC ####[facility] Uuuvprispc[address] [place], [place] [address]Dr. Farhat Leal Neutrophils/100 WBC (Bld) 77.6 % Critically high 43.0-75.0 [facility] Comment on above: Performed By: #### C BC ####[facility] Shxwmtpjep[address] [place], [place] [address]Dr. Farhat Leal Platelet mean volume (Bld) [Entitic vol] 9.5 fL Normal 9.5-13.5 [facility] Comment on above: Performed By: #### C BC ####[facility] Xfhjanzhqc6809 [place] [address]Dr. Farhat Leal PLT 375 103/ul Normal 150-450 [facility] Comment on above: Performed By: #### C BC ####[facility] Hmwoihsovd3195 [place] [address]Dr. Farhat Leal RBC 3.13 106/ul Critically low 4.70-6.10 [facility] Comment on above: Performed By: #### C BC ####[facility] Ybxxqilnla0410 [place] [address]Dr. Farhat Leal WBC 11.8 103/ul Critically high 4.0-11.0 [facility] Comment on above: Performed By: #### C BC ####[facility] Rpxvlyrked1922 [place] [address]Dr. Farhat Leal CRPon 11-27-2021 CRP 24.5 mg/dL Critically high <=1.0 [facility] Comment on above: Performed By: #### B QUARRY WORKER, CMP, CRP ####[facility] Gwfuplpfpr7934 [place] [id number]. Madelynlorri Leal CULTURE OTHERon 11-27-2021 CULTURE OTHER Normal [facility] Comment on above: Performed By: #### O THCX ####[facility] Lyhjzzfvos0083 [place] [address]Dr. Madelynlorri Leal CULTURE OTHER Normal [facility] Comment on above: Performed By: #### O THCX ####[facility] Hzhyrbfhpc6[address] [place], [place] [address]Dr. Farhat Leal CULTURE WOUNDon 11-27-2021 CULTURE WOUND Normal [facility] Comment on above: Performed By: #### W OUNDCX ####[facility] Ruxyejmjxb1724 [place] [id number]. Farhat Leal POINT OF CARE GLUCOSEon 11-15 Glucose [Mass/Vol] 147 mg/dL Critically high 74-106 T [facility] Comment on above: Performed By: #### P OCGLUC ####[facility] Lnoapypzuk9376 [place] [id number]. Farhat Leal PROF 14(COMP METB)on 022 Albumin [Mass/Vol] 1.4 g/dL Critically low 3.4-5.0 [facility] Comment on above: Performed By: #### B QUARRY WORKER, CMP, CRP ####[facility] Npnrrznzky7127 [place] [address]Dr. Farhat Leal Albumin/Globulin [Mass ratio] 0.4 {ratio} [facility] Comment on above: Performed By: #### B QUARRY WORKER, CMP, CRP ####[facility] Lldsvoywnm3888 [place] [address]Dr. Farhat Leal ALP [Catalytic activity/Vol] 82 U/L Normal 46-116 [facility] Comment on above: Performed By: #### B QUARRY WORKER, CMP, CRP ####[facility] Rsaglydokq9607 [place] [address]Dr. Farhat Elvis ALT [Catalytic activity/Vol] 22 U/L Normal 16-63 [facility] Comment on above: Performed By: #### B QUARRY WORKER, CMP, CRP ####[facility] Hlenwxyeja7523[address] [place], [place] [address]Dr. Farhat Leal Anion gap [Moles/Vol] 14.2 mmol/L Normal [facility] Comment on above: Performed By: #### B QUARRY WORKER, CMP, CRP ####[facility] Reytddskpr3627[address] [place], [place] [address]Dr. Farhat Leal AST [Catalytic activity/Vol] 35 U/L Normal 15-37 [facility] Comment on above: Performed By: #### B QUARRY WORKER, CMP, CRP ####[facility] Ncckihqmui60[address] [place], [place] [address]Dr. Farhat Leal Bilirubin [Mass/Vol] 0.7 mg/dL Normal 0.2-1.0 [facility] Comment on above: Performed By: #### B QUARRY WORKER, CMP, CRP ####[facility] Mcxipzhlkj74[address] [place], [place] [address]Dr. Farhat Leal Calcium [Mass/Vol] 8.2 mg/dL Critically low 8.5-10.1 [facility] Comment on above: Performed By: #### B QUARRY WORKER, CMP, CRP ####[facility] Ifsgcqtnol288[address] [place], [place] [address]Dr. Farhat Leal Chloride [Moles/Vol] 99 mmol/L Normal 98-107 [facility] Comment on above: Performed By: #### B QUARRY WORKER, CMP, CRP ####[facility] Dkbmmhyczr59[address] [place], [place] [address]Dr. Farhat Leal CO2 [Moles/Vol] 22.6 mmol/L Normal 21.0-32.0 [facility] Comment on above: Performed By: #### B QUARRY WORKER, CMP, CRP ####[facility] Ggpoypraot2285 [place] [address]Dr. Farhat Leal Creatinine [Mass/Vol] 1.73 mg/dL Critically high 0.70-1.30 [facility] Comment on above: Performed By: #### B QUARRY WORKER, CMP, CRP ####[facility] Obxedhiyol7792 [place] [address]Dr. Farhat Elvis EGFR-AF JORDANIAN 47 mL/min/1.73m2 Critically low >=60 [facility] Comment on above: Performed By: #### B QUARRY WORKER, CMP, CRP ####[facility] Rsizwtjkza5046[address] [place], [place] [address]Dr. Farhat Leal EGFR-NON AF JORDANIAN 38 mL/min/1.73m2 Critically low >=60 [facility] Comment on above: Performed By: #### B QUARRY WORKER, CMP, CRP ####[facility] Vbxemxiosl14[address] [place], [place] [address]Dr. Madelynlorri Leal Globulin (S) [Mass/Vol] 3.7 g/dL Normal [facility] Comment on above: Performed By: #### B QUARRY WORKER, CMP, CRP ####[facility] Excmwasjfo0598 [place] [address]Dr. Madelynlorri Leal Glucose [Mass/Vol] 220 mg/dL Critically high 74-106 T [facility] Comment on above: Performed By: #### B QUARRY WORKER, CMP, CRP ####[facility] Nitsbbpods5303 [place] [address]Dr. Madelynlorri Leal Potassium [Moles/Vol] 3.8 mmol/L Normal 3.5-5.1 [facility] Comment on above: Performed By: #### B QUARRY WORKER, CMP, CRP ####[facility] Vcovzijhuw1843[address] [place], [place] [address]Dr. Farhat Leal Protein [Mass/Vol] 5.1 g/dL Critically low 6.4-8.2 Th [facility] Comment on above: Performed By: #### B QUARRY WORKER, CMP, CRP ####[facility] Cmyautjmvd5513 [place] [address]Dr. Farhat Leal Sodium [Moles/Vol] 132 mmol/L Critically low 136-145 Th e [facility] Comment on above: Performed By: #### B QUARRY WORKER, CMP, CRP ####[facility] Rkaxmamcfj8016 [place] [address]Dr. Farhat Leal Urea nitrogen [Mass/Vol] 49.0 mg/dL Critically high 7.0-18.0 [facility] Comment on above: Performed By: #### B QUARRY WORKER, CMP, CRP ####[facility] Tghjhaqyvy0326 [place] [address]Dr. Farhat Leal Urea nitrogen/Creatinine [Mass ratio] 28.3 mg/mg Normal [facility] Comment on above: Performed By: #### B QUARRY WORKER, CMP, CRP ####[facility] Ldlnqnqfrl[address] [place], [place] [address]Dr. Farhat Leal PROTIMEon 11-27-2021 INR Coag (PPP) [Relative time] 1.25 {INR} Normal [facility] Comment on above: Performed By: #### P T ####[facility] Irervkqbhr64[address] [place], [place] [address]Dr. Farhat Leal INR GUIDELINES SEE BELOW Normal [facility] Comment on above: Result Comment: MALINA RED INR: 2.0 - 3.0 CONDITIONS NOT LISTED BELOW 2.5 - 3.5 FOR PROSTHETIC HEART VALVE REPLACEMENT 2.5 - 3.5 RECURRENT THROMBOSIS Performed By: #### P T ####[facility] Seombuqtla6585 [place] [address]Dr. Farhat Leal PT Coag (PPP) [Time] 13.3 s Critically high 9.0-11.6 [facility] Comment on above: Performed By: #### P T ####[facility] Ijavoebifk2324 [place] [address]Dr. Farhat Leal SED RATE WESTERGREN 2021 SED RATE 60 mm/hr Critically high <=20 [facility] Comment on above: Performed By: #### S EDR ####[facility] Ieekiupakx2758 [place] [address]Dr. Farhat Leal VANCOMYCIN TROUGHon 11-28-19 VANCOMYCIN TROUGH 21.2 ug/ml Critically high 5.0-20.0 Th e [facility] Comment on above: Performed By: #### V ANCT ####[facility] Sahawsfhqb70[address] [place], [place] [address]Dr. Farhat Leal XR CHEST 1 Von 11-27-2021 XR CHEST 1 V Normal [facility] BNPon 11-26-2021 Natriuretic peptide B (Bld) [Mass/Vol] 54309.0 pg/mL Critically high <=1,800.0 [facility] Comment on above: Performed By: #### B QUARRY WORKER, CRP, CMP ####[facility] Xvadogqnem33[address] [place], [place] [address]Dr. Farhat Elvis CBC AUTO DIFFon 11-26-2021 BASO # 0.0 103/ul Normal 0.0-0.1 [facility] Comment on above: Performed By: #### C BC ####[facility] Wmbyxyjcom[address] [place], [place] [address]Dr. Madelynlorri Leal Basophils/100 WBC (Bld) 0.2 % Normal 0.2-2.0 [facility] Comment on above: Performed By: #### C BC ####[facility] Hlwjacycan[address] [place], [place] [address]Dr. Farhat Leal EO # 0.0 103/ul Normal 0.0-0.7 [facility] Comment on above: Performed By: #### C BC ####[facility] Mlpicfwmca[address] [place], [place] [address]Dr. Farhat Leal Eosinophils/100 WBC (Bld) 0.3 % Critically low 0.9-7.0 [facility] Comment on above: Performed By: #### C BC ####[facility] Zuwhoglqar68[address] [place], [place] [address]Dr. Farhat Leal Erythrocyte distribution width (RBC) [Ratio] 13.9 % Normal 11.0-15.0 [facility] Comment on above: Performed By: #### C BC ####[facility] [address]sumwcbvzk[address] [place] [address]Dr. Farhat Leal Hematocrit (Bld) [Volume fraction] 27.3 % Critically low 42.0-54.0 [facility] Comment on above: Performed By: #### C BC ####[facility] Oltybnwqis79[address] [place] [address]Dr. Farhat Leal Hemoglobin (Bld) [Mass/Vol] 8.8 g/dL Critically low 14.0-18.0 [facility] Comment on above: Performed By: #### C BC ####[facility] Rpdrjeniui6530 [place] [address]Dr. Farhat Leal IG # 0.17 10e3/ul Critically high 0.00-0.03 [facility] Comment on above: Performed By: #### C BC ####[facility] Uiznfvlvpt5386 [place] [address]Dr. Farhat Leal IG % 1.2 % Critically high 0.0-0.5 [facility] Comment on above: Performed By: #### C BC ####[facility] Buluaqtfqq37[address] [place] [address]Dr. Farhat Elvis LYMPH # 0.7 103/ul Critically low 1.2-3.8 [facility] Comment on above: Performed By: #### C BC ####[facility] Zqlcqmenht6389 [place] [address]DrSkylar Farhat Elvis Lymphocytes/100 WBC (Bld) 4.8 % Critically low 20.5-60.0 [facility] Comment on above: Performed By: #### C BC ####[facility] Itfqzmfcuk6251 [place] [address]Dr. Madelynlorri Leal MANUAL DIFF REQ NO Normal [facility] Comment on above: Performed By: #### C BC ####[facility] Xrqnqnouec3721 [place] [address]DrSkylar Farhat Elvis MCH (RBC) [Entitic mass] 29.9 pg Normal 25.9-34.0 [facility] Comment on above: Performed By: #### C BC ####[facility] Jhkohtvhjv7728 [place] [id number]. Farhat Elvis MCHC (RBC) [Mass/Vol] 32.2 g/dL Normal 29.9-35.2 [facility] Comment on above: Performed By: #### C BC ####[facility] Gcxqwdecak0435 [place] [id number] Leal MCV (RBC) [Entitic vol] 92.9 fL Normal 80.0-94.0 [facility] Comment on above: Performed By: #### C BC ####[facility] Lveizuqhmz8444 [place] [address]DrSkylar Leal MONO # 1.3 103/ul Critically high 0.3-0.8 [facility] Comment on above: Performed By: #### C BC ####[facility] Vcrffwmkqo0590 [place] [address]Dr. Farhat Leal Monocytes/100 WBC (Bld) 9.6 % Normal 1.7-12.0 [facility] Comment on above: Performed By: #### C BC ####[facility] Msviffnxir[address] [place], [place] [id number]. Farhat Leal NEUT # 11.4 103/ul Critically high 1.4-6.5 [facility] Comment on above: Performed By: #### C BC ####[facility] Txjvsqmrne5455 [place] [address]DrSkylar Leal Neutrophils/100 WBC (Bld) 83.9 % Critically high 43.0-75.0 [facility] Comment on above: Performed By: #### C BC ####[facility] Pbraidsbxg0744 [place] [id number] Leal Platelet mean volume (Bld) [Entitic vol] 9.6 fL Normal 9.5-13.5 [facility] Comment on above: Performed By: #### C BC ####[facility] Bmcbbutiow4034 [place] [id number] Leal PLT 395 103/ul Normal 150-450 [facility] Comment on above: Performed By: #### C BC ####[facility] Vmiphwlntg6953 [place] [address]Dr. Farhat Leal RBC 2.94 106/ul Critically low 4.70-6.10 [facility] Comment on above: Performed By: #### C BC ####[facility] Jlohihectd5453 [place] [address]Dr. Farhat Leal WBC 13.6 103/ul Critically high 4.0-11.0 [facility] Comment on above: Performed By: #### C BC ####[facility] Fqflbwdmbz3895 [place] [address]Dr. Farhat Leal CRPon 11-26-2021 CRP [Mass/Vol] mg/L Critically high <=1.0 [facility] Comment on above: Performed By: #### B QUARRY WORKER, CRP, CMP ####[facility] Dwjfvjyvxw81[address] [place] [address]Dr. Farhat Leal PROF 14(COMP METB)on 022 Albumin [Mass/Vol] 1.5 g/dL Critically low 3.4-5.0 [facility] Comment on above: Performed By: #### B QUARRY WORKER, CRP, CMP ####[facility] Qlvxkxhcmz9369 [place] [address]Dr. Farhat Leal Albumin/Globulin [Mass ratio] 0.4 {ratio} Normal [facility] Comment on above: Performed By: #### B QUARRY WORKER, CRP, CMP ####[facility] Ubccpozzdx8221 [place] [address]Dr. Farhat Leal ALP [Catalytic activity/Vol] 88 U/L Normal 46-116 [facility] Comment on above: Performed By: #### B QUARRY WORKER, CRP, CMP ####[facility] Xxipfqtyvn8957 [place] [address]Dr. Farhat Leal ALT [Catalytic activity/Vol] 29 U/L Normal 16-63 [facility] Comment on above: Performed By: #### B QUARRY WORKER, CRP, CMP ####[facility] Upkabeorbh8425 [place] [address]Dr. Farhat Leal Anion gap [Moles/Vol] 13.3 mmol/L Normal [facility] Comment on above: Performed By: #### B QUARRY WORKER, CRP, CMP ####[facility] Ihipimprgt6934 [place] [address]Dr. Farhat Leal AST [Catalytic activity/Vol] 32 U/L Normal 15-37 [facility] Comment on above: Performed By: #### B QUARRY WORKER, CRP, CMP ####[facility] Gxbjxkvifm8174 [place] [address]Dr. Farhat Leal Bilirubin [Mass/Vol] 0.6 mg/dL Normal 0.2-1.0 [facility] Comment on above: Performed By: #### B QUARRY WORKER, CRP, CMP ####[facility] Dbjiyxfwti[address] [place], [place] [address]Dr. Farhat Leal Calcium [Mass/Vol] 8.0 mg/dL Critically low 8.5-10.1 [facility] Comment on above: Performed By: #### B QUARRY WORKER, CRP, CMP ####[facility] Utvzsfyzaz[address] [place], [place] [address]Dr. Farhat Leal Chloride [Moles/Vol] 98 mmol/L Normal 98-107 [facility] Comment on above: Performed By: #### B QUARRY WORKER, CRP, CMP ####[facility] Gmhepgcpxi10[address] [place], [place] [address]Dr. Farhat Leal CO2 [Moles/Vol] 23.7 mmol/L Normal 21.0-32.0 [facility] Comment on above: Performed By: #### B QUARRY WORKER, CRP, CMP ####[facility] Nzkoioynxg[address] [place], [place] [address]Dr. Farhat Leal Creatinine [Mass/Vol] 2.08 mg/dL Critically high 0.70-1.30 [facility] Comment on above: Performed By: #### B QUARRY WORKER, CRP, CMP ####[facility] Ociedqhxnn2[address] [place], [place] [address]Dr. Farhat Leal EGFR-AF JORDANIAN 38 mL/min/1.73m2 Critically low >=60 [facility] Comment on above: Performed By: #### B QUARRY WORKER, CRP, CMP ####[facility] Mateeoxclx8726 [place] [address]Dr. Farhat Leal EGFR-NON AF JORDANIAN 31 mL/min/1.73m2 Critically low >=60 [facility] Comment on above: Performed By: #### B QUARRY WORKER, CRP, CMP ####[facility] Mfhnstkjfv4537 [place] [address]Dr. Farhat Leal Globulin (S) [Mass/Vol] 3.7 g/dL Normal [facility] Comment on above: Performed By: #### B QUARRY WORKER, CRP, CMP ####[facility] Hqodaztpvu9265 [place] [address]Dr. Farhat Leal Glucose [Mass/Vol] 315 mg/dL Critically high 74-106 T [facility] Comment on above: Performed By: #### B QUARRY WORKER, CRP, CMP ####[facility] Uzavwcszgr[address] [place], [place] [address]Dr. Madelynlorri Leal Potassium [Moles/Vol] 4.0 mmol/L Normal 3.5-5.1 [facility] Comment on above: Performed By: #### B QUARRY WORKER, CRP, CMP ####[facility] Pbvuszkzpc[address] [place], [place] [address]Dr. Farhat Leal Protein [Mass/Vol] 5.2 g/dL Critically low 6.4-8.2 [facility] Comment on above: Performed By: #### B QUARRY WORKER, CRP, CMP ####[facility] L[address]ftcnpays[address] [place], [place] [address]Dr. Farhat Leal Sodium [Moles/Vol] 131 mmol/L Critically low 136-145 [facility] Comment on above: Performed By: #### B QUARRY WORKER, CRP, CMP ####[facility] Gxeeuthmvf[address] [place], [place] [address]Dr. Farhat Leal Urea nitrogen [Mass/Vol] 50.0 mg/dL Critically high 7.0-18.0 [facility] Comment on above: Performed By: #### B QUARRY WORKER, CRP, CMP ####[facility] Bpkfwcsxzi99[address] [place], [place] [address]Dr. Farhat Leal Urea nitrogen/Creatinine [Mass ratio] 24.0 mg/mg Normal [facility] Comment on above: Performed By: #### B QUARRY WORKER, CRP, CMP ####[facility] Waskfftqpk7288 [place] [address]Dr. Farhat Leal PROTIMEon 11-26-2021 INR Coag (PPP) [Relative time] 1.31 {INR} Normal [facility] Comment on above: Performed By: #### P T ####[facility] Weigmeaclk[address] [place], [place] [address]Dr. Farhat Leal INR GUIDELINES SEE BELOW Normal [facility] Comment on above: Result Comment: MALINA RED INR: 2.0 - 3.0 CONDITIONS NOT LISTED BELOW 2.5 - 3.5 FOR PROSTHETIC HEART VALVE REPLACEMENT 2.5 - 3.5 RECURRENT THROMBOSIS Performed By: #### P T ####[facility] [address] [place] [address]. Farhat Leal PT Coag (PPP) [Time] 13.9 s Critically high 9.0-11.6 [facility] Comment on above: Performed By: #### P T ####[facility] [address] [place] [address]. Farhat Lela SED RATE DRY PRONGERGRENon 2021 SED RATE 87 mm/hr Critically high <=20 [facility] Comment on above: Performed By: #### S EDR ####[facility] Gjsocqsrji[address] [place], [place] [address]Dr. Farhat Leal BNPon 11-25-2021 Natriuretic peptide B (Bld) [Mass/Vol] 74470.0 pg/mL Critically high <=1,800.0 [facility] Comment on above: Performed By: #### C MP, BNP, CRP ####[facility] [address]ire[address] [place] [address]. Farhat Leal CBC AUTO DIFFon 11-25-2021 BASO # 0.0 103/ul Normal 0.0-0.1 [facility] Comment on above: Performed By: #### C BC ####[facility] Tnpgnjxkjq2820 [place] [id number]. Farhat Leal Basophils/100 WBC (Bld) 0.4 % Normal 0.2-2.0 [facility] Comment on above: Performed By: #### C BC ####[facility] Doudfaqoty8537 [place] [address]Dr. Farhat Leal EO # 0.1 103/ul Normal 0.0-0.7 [facility] Comment on above: Performed By: #### C BC ####[facility] Izusumcsfd2823 [place] [address]Dr. Farhat Leal Eosinophils/100 WBC (Bld) 1.2 % Normal 0.9-7.0 [facility] Comment on above: Performed By: #### C BC ####[facility] Kockwdbgak4236 [place] [address]Dr. Farhat Leal Erythrocyte distribution width (RBC) [Ratio] 13.7 % Normal 11.0-15.0 [facility] Comment on above: Performed By: #### C BC ####[facility] Ovowphpehc6216 [place] [address]Dr. Farhat Leal Hematocrit (Bld) [Volume fraction] 29.6 % Critically low 42.0-54.0 [facility] Comment on above: Performed By: #### C BC ####[facility] Jkaadcxjah5931 [place] [address]Dr. Farhat Leal Hemoglobin (Bld) [Mass/Vol] 9.3 g/dL Critically low 14.0-18.0 [facility] Comment on above: Performed By: #### C BC ####[facility] Jsvwwrkjxc5437 [place] [address]Dr. Farhat Leal IG # 0.15 10e3/ul Critically high 0.00-0.03 [facility] Comment on above: Performed By: #### C BC ####[facility] Deltqtxnvf2732 [place] [address]Dr. Farhat Leal IG % 1.4 % Critically high 0.0-0.5 [facility] Comment on above: Performed By: #### C BC ####[facility] Aefovxkzsh5004 [place], [place] [address]Kk. Farhat Leal LYMPH # 0.8 103/ul Critically low 1.2-3.8 [facility] Comment on above: Performed By: #### C BC ####[facility] Nbayeoapyv3467 [place], [place] [address]Xq. Farhat Leal Lymphocytes/100 WBC (Bld) 7.3 % Critically low 20.5-60.0 [facility] Comment on above: Performed By: #### C BC ####[facility] Zpwjqdiegu9256 [place] [address]Dr. Madelynlorri Leal MANUAL DIFF REQ NO Normal [facility] Comment on above: Performed By: #### C BC ####[facility] Rqpefstjxy7952 [place] [address]Dr. Farhat Elvis MCH (RBC) [Entitic mass] 29.3 pg Normal 25.9-34.0 [facility] Comment on above: Performed By: #### C BC ####[facility] Qyriqpyvrv6417 [place] [address]Dr. Farhat Leal MCHC (RBC) [Mass/Vol] 31.4 g/dL Normal 29.9-35.2 [facility] Comment on above: Performed By: #### C BC ####[facility] Xwdnwwcoof4945 [place] [address]Dr. Madelynlorri Elvis MCV (RBC) [Entitic vol] 93.4 fL Normal 80.0-94.0 [facility] Comment on above: Performed By: #### C BC ####[facility] Rdednlrvxp3473 [place] [address]Dr. Farhat Leal MONO # 1.3 103/ul Critically high 0.3-0.8 [facility] Comment on above: Performed By: #### C BC ####[facility] Suidfvnkva3684 [place] [address]Dr. Farhat Elvis Monocytes/100 WBC (Bld) 12.3 % Critically high 1.7-12.0 [facility] Comment on above: Performed By: #### C BC ####[facility] Qvucdtoako0349 [place] [address]Dr. Farhat Leal NEUT # 8.4 103/ul Critically high 1.4-6.5 [facility] Comment on above: Performed By: #### C BC ####[facility] Wyieklbghb0748 [place] [address]Dr. Farhat Leal Neutrophils/100 WBC (Bld) 77.4 % Critically high 43.0-75.0 [facility] Comment on above: Performed By: #### C BC ####[facility] Mcyidbaopy0639 [place] [address]Dr. Farhat Leal Platelet mean volume (Bld) [Entitic vol] 9.8 fL Normal 9.5-13.5 [facility] Comment on above: Performed By: #### C BC ####[facility] Enfwhhyius8939 [place] [address]Dr. Farhat Leal PLT 390 103/ul Normal 150-450 [facility] Comment on above: Performed By: #### C BC ####[facility] Buctlqefcq8215 [place] [address]Dr. Farhat Leal RBC 3.17 106/ul Critically low 4.70-6.10 [facility] Comment on above: Performed By: #### C BC ####[facility] Opxzklmmcp6669 [place] [address]Dr. Farhat Leal WBC 10.9 103/ul Normal 4.0-11.0 [facility] Comment on above: Performed By: #### C BC ####[facility] Tauwgynjkx2225 [place] [address]Dr. Farhat Leal CRPon 11-25-2021 CRP 27.2 mg/dL Critically high <=1.0 [facility] Comment on above: Performed By: #### C MP, BNP, CRP ####[facility] Dbktgvqfoc5853 [place] [address]Dr. Farhat Leal PROF 14(COMP METB)on 022 Albumin [Mass/Vol] 1.5 g/dL Critically low 3.4-5.0 [facility] Comment on above: Performed By: #### C MP, BNP, CRP ####[facility] Hkiosnhhkt5605 [place] [address]Dr. Farhat Leal Albumin/Globulin [Mass ratio] 0.4 {ratio} Normal [facility] Comment on above: Performed By: #### C MP, BNP, CRP ####[facility] Knpdxpdsnn8296 [place] [address]Dr. Farhat Leal ALP [Catalytic activity/Vol] 86 U/L Normal 46-116 [facility] Comment on above: Performed By: #### C MP, BNP, CRP ####[facility] Fyzhbvusqt[address] [place], [place] [address]Dr. Farhat Leal ALT [Catalytic activity/Vol] 34 U/L Normal 16-63 [facility] Comment on above: Performed By: #### C MP, BNP, CRP ####[facility] Zkkifvhtky[address] [place], [place] [address]Dr. Farhat Leal Anion gap [Moles/Vol] 17.8 mmol/L Normal [facility] Comment on above: Performed By: #### C MP, BNP, CRP ####[facility] Pzevsrqlzc[address] [place], [place] [address]Dr. Farhat Leal AST [Catalytic activity/Vol] 48 U/L Critically high 15-37 [facility] Comment on above: Performed By: #### C MP, BNP, CRP ####[facility] Vlhzfjxgzq[address] [place], [place] [address]Dr. Farhat Leal Bilirubin [Mass/Vol] 0.8 mg/dL Normal 0.2-1.0 [facility] Comment on above: Performed By: #### C MP, BNP, CRP ####[facility] Mmlifcffgk[address] [place], [place] [address]Dr. Farhat Leal Calcium [Mass/Vol] 8.3 mg/dL Critically low 8.5-10.1 [facility] Comment on above: Performed By: #### C MP, BNP, CRP ####[facility] Dplrtcrlvc[address] [place], [place] [address]Dr. Farhat Leal Chloride [Moles/Vol] 97 mmol/L Critically low 98-107 [facility] Comment on above: Performed By: #### C MP, BNP, CRP ####[facility] Idwcanxwvo5652 [place] [address]Dr. Farhat Leal CO2 [Moles/Vol] 23.0 mmol/L Normal 21.0-32.0 [facility] Comment on above: Performed By: #### C MP, BNP, CRP ####[facility] Btkhmpaoal0758 [place] [address]Dr. Farhat Leal Creatinine [Mass/Vol] 1.68 mg/dL Critically high 0.70-1.30 [facility] Comment on above: Performed By: #### C MP, BNP, CRP ####[facility] Duxhzykjsm4[address] [place], [place] [address]Dr. Madelynlorri Elvis EGFR-AF JORDANIAN 48 mL/min/1.73m2 Critically low >=60 [facility] Comment on above: Performed By: #### C MP, BNP, CRP ####[facility] [address]iytkqbakf[address] [place], [place] [address]Dr. Farhat Leal EGFR-NON AF JORDANIAN 40 mL/min/1.73m2 Critically low >=60 [facility] Comment on above: Performed By: #### C MP, BNP, CRP ####[facility] Rnufyqplvb4121 [place] [address]Dr. Madelynlorri Leal Globulin (S) [Mass/Vol] 3.9 g/dL Normal [facility] Comment on above: Performed By: #### C MP, BNP, CRP ####[facility] Ftqefhvraf4693 [place] [address]Dr. Madelynlorri Leal Glucose [Mass/Vol] 282 mg/dL Critically high 74-106 [facility] Comment on above: Performed By: #### C MP, BNP, CRP ####[facility] Itqrvrmgwx1432 [place] [address]Dr. Farhat Leal Potassium [Moles/Vol] 4.8 mmol/L Normal 3.5-5.1 [facility] Comment on above: Performed By: #### C MP, BNP, CRP ####[facility] Qqpvnozmpk0779 [place] [address]Dr. Farhat Leal Protein [Mass/Vol] 5.4 g/dL Critically low 6.4-8.2 [facility] Comment on above: Performed By: #### C MP, BNP, CRP ####[facility] Ealbtzwemq3427 [place] [address]Dr. Farhat Leal Sodium [Moles/Vol] 133 mmol/L Critically low 136-145 [facility] Comment on above: Performed By: #### C MP, BNP, CRP ####[facility] Yukkjfmlnq27[address] [place], [place] [address]Dr. Farhat Leal Urea nitrogen [Mass/Vol] 40.0 mg/dL Critically high 7.0-18.0 [facility] Comment on above: Performed By: #### C MP, BNP, CRP ####[facility] Oyjkvvifvr[address] [place], [place] [address]Dr. Farhat Leal Urea nitrogen/Creatinine [Mass ratio] 23.8 mg/mg Normal [facility] Comment on above: Performed By: #### C MP, BNP, CRP ####[facility] Zhiratigss[address] [place], [place] [address]Dr. Farhat Leal PROTIMEon 11-25-2021 INR Coag (PPP) [Relative time] 1.48 {INR} Normal [facility] Comment on above: Performed By: #### P T ####[facility] [address]uxuilfshy[address] [place], [place] [address]Dr. Farhat Leal INR GUIDELINES SEE BELOW Normal [facility] Comment on above: Result Comment: MALINA RED INR: 2.0 - 3.0 CONDITIONS NOT LISTED BELOW 2.5 - 3.5 FOR PROSTHETIC HEART VALVE REPLACEMENT 2.5 - 3.5 RECURRENT THROMBOSIS Performed By: #### P T ####[facility] Zrcjsxuazz[address] [place], [place] [address]Dr. Farhat Leal PT Coag (PPP) [Time] 15.6 s Critically high 9.0-11.6 [facility] Comment on above: Performed By: #### P T ####[facility] Yhliooiuoa[address] [place], [place] [address]Dr. Farhat Leal SED RATE WESTERGRENon 2021 SED RATE 76 mm/hr Critically high <=20 [facility] Comment on above: Performed By: #### S EDR ####[facility] [address]xzsudosy[address] [place], [place] [address]Dr. Farhat Leal BNPon 11-24-2021 Natriuretic peptide B (Bld) [Mass/Vol] 23279.0 pg/mL Critically high <=1,800.0 [facility] Comment on above: Performed By: #### B QUARRY WORKER, CMP, CRP ####[facility] Cjnoxnzors[address] [place], [place] [address]Dr. Farhat Leal CBC AUTO DIFFon 11-24-2021 BASO # 0.0 103/ul Normal 0.0-0.1 [facility] Comment on above: Performed By: #### C BC ####[facility] Mkkgvgxfxn[address] [place], [place] [address]Dr. Farhat Leal Basophils/100 WBC (Bld) 0.3 % Normal 0.2-2.0 [facility] Comment on above: Performed By: #### C BC ####[facility] Iyppovpkfi[address] [place], [place] [address]Dr. Farhat Leal EO # 0.2 103/ul Normal 0.0-0.7 [facility] Comment on above: Performed By: #### C BC ####[facility] Vepjvuvdxq[address] [place], [place] [address]Dr. Farhat Leal Eosinophils/100 WBC (Bld) 1.2 % Normal 0.9-7.0 [facility] Comment on above: Performed By: #### C BC ####[facility] Zwficzrtke[address] [place], [place] [address]Dr. Farhat Leal Erythrocyte distribution width (RBC) [Ratio] 13.5 % Normal 11.0-15.0 [facility] Comment on above: Performed By: #### C BC ####[facility] [address] [place], [place] [id number]. Farhat Leal Hematocrit (Bld) [Volume fraction] 31.1 % Critically low 42.0-54.0 [facility] Comment on above: Performed By: #### C BC ####[facility] Ltbbnocbic5425 [place] [address]Dr. Farhat Leal Hemoglobin (Bld) [Mass/Vol] 10.0 g/dL Critically low 14.0-18.0 [facility] Comment on above: Performed By: #### C BC ####[facility] Ljgatnlrhk1135 [place] [address]Dr. Madelynlorri Elvis IG # 0.13 10e3/ul Critically high 0.00-0.03 [facility] Comment on above: Performed By: #### C BC ####[facility] Jruigydkfe1633 [place] [address]Dr. Farhat Leal IG % 1.0 % Critically high 0.0-0.5 [facility] Comment on above: Performed By: #### C BC ####[facility] Pgrzpskevd1520 [place] [address]Dr. Farhat Leal LYMPH # 0.7 103/ul Critically low 1.2-3.8 [facility] Comment on above: Performed By: #### C BC ####[facility] Ippsulxdzk3350 [place] [address]Dr. Madelynlorri Leal Lymphocytes/100 WBC (Bld) 4.9 % Critically low 20.5-60.0 [facility] Comment on above: Performed By: #### C BC ####[facility] Ivyhivzawl9328 [place] [address]Dr. Madelynlorri Leal MANUAL DIFF REQ NO Normal [facility] Comment on above: Performed By: #### C BC ####[facility] Noyeafkvur[address] [place], [place] [address]Dr. Farhat Elvis MCH (RBC) [Entitic mass] 29.6 pg Normal 25.9-34.0 [facility] Comment on above: Performed By: #### C BC ####[facility] Npswyhpqat[address] [place], [place] [id number]. Farhat Leal MCHC (RBC) [Mass/Vol] 32.2 g/dL Normal 29.9-35.2 [facility] Comment on above: Performed By: #### C BC ####[facility] Avgtjljpwi74[address] [place] [id number]. Farhat Leal MCV (RBC) [Entitic vol] 92.0 fL Normal 80.0-94.0 [facility] Comment on above: Performed By: #### C BC ####[facility] Hnkazbsirp5648 [place] [id number]. Farhat Lela MONO # 1.3 103/ul Critically high 0.3-0.8 [facility] Comment on above: Performed By: #### C BC ####[facility] Etypvvzsrl[address] [place] [id number]. Madelynlorri Leal Monocytes/100 WBC (Bld) 9.6 % Normal 1.7-12.0 [facility] Comment on above: Performed By: #### C BC ####[facility] Msxtagzvma[address] [place], [place] [id number]. Farhat Leal NEUT # 11.2 103/ul Critically high 1.4-6.5 [facility] Comment on above: Performed By: #### C BC ####[facility] Czmygwvwbb4197 [place] [id number]. Farhat Elvis Neutrophils/100 WBC (Bld) 83.0 % Critically high 43.0-75.0 [facility] Comment on above: Performed By: #### C BC ####[facility] Mfsgfsetkw2326 [place] [id number]. Farhat Leal Platelet mean volume (Bld) [Entitic vol] 9.5 fL Normal 9.5-13.5 [facility] Comment on above: Performed By: #### C BC ####[facility] Efwhtqbwwp4647 [place] [id number]. Farhat Elvis PLT 395 103/ul Normal 150-450 [facility] Comment on above: Performed By: #### C BC ####[facility] Hrqyczpfni9710 [place], [place] [address]Uh. Farhat Leal RBC 3.38 106/ul Critically low 4.70-6.10 [facility] Comment on above: Performed By: #### C BC ####[facility] Itellsthbr6769 [place], [place] [address]Gg. Farhat Leal WBC 13.4 103/ul Critically high 4.0-11.0 [facility] Comment on above: Performed By: #### C BC ####[facility] Ayikvymkfy5846 [place] [id number]. Farhat Leal CRPon 11-24-2021 CRP 27.8 mg/dL Critically high <=1.0 [facility] Comment on above: Performed By: #### B QUARRY WORKER, CMP, CRP ####[facility] Cfrlhuthkp6647 [place] [id number]. Farhat Leal CULTURE ANAEROBICon 11-25-19 22 CULTURE ANAEROBIC Culture Observations : NO GROWTH OF ANAEROBES AT 72 HOURS. [facility] Comment on above: Performed By: #### A NACX ####[facility] Ypsgmvldkr0213 [place] [id number]. Yilorri Leal CULTURE ANAEROBIC Culture Observations : NO GROWTH OF ANAEROBES AT 72 HOURS. [facility] Comment on above: Performed By: #### A NACX ####[facility] Olcmttzerw7624 [place] [id number]. Yilorri Leal CULTURE ANAEROBIC Culture Observations : No growth of anaerobes at 72 hours. [facility] Comment on above: Performed By: #### A NACX ####[facility] Wvdaxqstef4788 [place] [id number]. Yilan Leal CULTURE ANAEROBIC Culture Observations : No growth of anaerobes at 72 hours. [facility] Comment on above: Performed By: #### A NACX ####[facility] Gzwnmfsqvc4715 [place] [id number]. Farhat Leal CULTURE URINEon 11-24-2021 CULTURE URINE Culture Observations : NO GROWTH. [facility] Comment on above: Performed By: #### U RCX ####[facility] Evbjdszzjh74[address] [place], [place] [address]Dr. Farhat Leal ECHOCARDIO M/2D COMPLETEon 1 ECHOCARDIO M/2D COMPLETE Normal [facility] ER URINE PROFILEon 2 Bilirubin Ql (U) Negative Normal NEGATIVE [facility] Comment on above: Performed By: #### E RUR ####[facility] Xncwwrunfg[address] [place], [place] [address]Dr. Madelynlorri Leal Clarity (U) CLEAR Normal CLEAR [facility] Comment on above: Performed By: #### E RUR ####[facility] Xdtuobuzmc99[address] [place], [place] [address]Dr. Madelynlorri Leal Color (U) YELLOW Normal YELLOW [facility] Comment on above: Performed By: #### E RUR ####[facility] Hlfsokinim98[address] [place], [place] [address]Dr. Farhat Leal ERUAHD A micrscopic examination will be performed if indicated. Normal [facility] Comment on above: Performed By: #### E RUR ####[facility] Mciwtznorw04[address] [place], [place] [address]Dr. Madelynlorri Leal Glucose Ql (U) Negative Normal NEGATIVE [facility] Comment on above: Performed By: #### E RUR ####[facility] Yovmqijabr3206[address] [place], [place] [address]Dr. Farhat Leal Hemoglobin Ql (U) Negative Normal NEGATIVE [facility] Comment on above: Performed By: #### E RUR ####[facility] Bdveixagmx8904[address] [place], [place] [address]Dr. Farhat Leal Ketones Ql (U) TRACE Abnormal NEGATIVE [facility] Comment on above: Performed By: #### E RUR ####[facility] Itcnetncbz9147[address] [place], [place] [address]Dr. Farhat Leal LEUKOCYTES Negative Normal NEGATIVE [facility] Comment on above: Performed By: #### E RUR ####[facility] Jksbkjroge0610[address] [place], [place] [address]Dr. Farhat Leal Nitrite Ql (U) Negative Normal NEGATIVE [facility] Comment on above: Performed By: #### E RUR ####[facility] Gmiacljjmz8[address] [place], [place] [address]Dr. Farhat Leal pH (U) 5.5 [pH] Normal 5-9 [facility] Comment on above: Performed By: #### E RUR ####[facility] Dppfiomdvh[address] [place], [place] [address]Dr. Farhat Leal SPEC GRAVITY 1.015 Normal 1.005-<=1.[address] [place] [address] Comment on above: Performed By: #### E RUR ####[facility] Gzddlvliyh74[address] [place], [place] [address]Dr. Farhat Leal UA PROTEIN Negative Normal NEGATIVE/ TRACE [facility] Comment on above: Performed By: #### E RUR ####[facility] Mgsyearrel4846[address] [place], [place] [address]Dr. Farhat Leal UR MICRO IND NOT INDICATED Normal [facility] Comment on above: Performed By: #### E RUR ####[facility] Tciumuihey[address] [place], [place] [address]Dr. Farhat Leal Urobilinogen Qn (U) 0.2 {Boyd'U}/dL Normal 0.2 - 1. 0 [facility] Comment on above: Performed By: #### E RUR ####[facility] Jxvaoeintd66[address] [place], [place] [address]Dr. Farhat Leal GRAM STAINon 11-24-2021 DIPHTHEROIDS Normal [facility] Comment on above: Performed By: #### G STAIN ####[facility] Vmojytkwel60[address] [place], [place] [address]Dr. Farhat Leal EPITHELIALS Normal [facility] Comment on above: Performed By: #### G STAIN ####[facility] Gjbzgjjgfk[address] [place], [place] [address]Dr. Farhat Leal FUNGAL ELEMENTS Normal [facility] Comment on above: Performed By: #### G STAIN ####[facility] Gqchamztga01[address] [place], [place] [address]Dr. Farhat Leal GRAM NEG BACILLI Normal [facility] Comment on above: Performed By: #### G STAIN ####[facility] Eyannvdezk3424 [place] [address]Dr. Farhat Leal GRAM NEG DIPPLOCOCCI Normal [facility] Comment on above: Performed By: #### G STAIN ####[facility] Kwsandptwj5185 [place] [id number]. Farhat Leal GRAM POS BACILLI Normal [facility] Comment on above: Performed By: #### G STAIN ####[facility] Unsvyokppr8066 [place] [address]Dr. Farhat Leal GRAM POSITIVE COCCI FEW Normal [facility] Comment on above: Performed By: #### G STAIN ####[facility] Mbdsknviye0469 [place] [address]Dr. Farhat Leal GRAM STAIN SOURCE RT ACHILLES TENDON Normal [facility] Comment on above: Performed By: #### G STAIN ####[facility] Imixmkurvr[address] [place], [place] [address]Dr. Farhat Leal GS_DIPTH Normal [facility] Comment on above: Performed By: #### G STAIN ####[facility] Xskvkbggpr4366 [place] [address]Dr. Farhat Leal WBC RARE Normal [facility] Comment on above: Performed By: #### G STAIN ####[facility] Dfmhushbcm9476 [place] [address]Dr. Farhat Leal COMMENTS NO ORGANISMS OBSERVED Normal [facility] Comment on above: Performed By: #### G STAIN ####[facility] Cgkhlfmavn0628 [place] [address]Dr. Farhat Leal DIPHTHEROIDS Normal [facility] Comment on above: Performed By: #### G STAIN ####[facility] Hhypgtzbyk6022 [place] [address]Dr. Farhat Leal EPITHELIALS Normal [facility] Comment on above: Performed By: #### G STAIN ####[facility] Dclebdqulb7754 [place] [address]Dr. Farhat Leal FUNGAL ELEMENTS Normal [facility] Comment on above: Performed By: #### G STAIN ####[facility] Uocxerltnq8477 [place] [address]Dr. Farhat Leal GRAM NEG BACILLI Normal [facility] Comment on above: Performed By: #### G STAIN ####[facility] Jsjpquezze8051 [place] [address]Dr. Farhat Leal GRAM NEG DIPPLOCOCCI Normal [facility] Comment on above: Performed By: #### G STAIN ####[facility] Zwaaawvmzg4028 [place] [address]Dr. Farhat Leal GRAM POS BACILLI Normal [facility] Comment on above: Performed By: #### G STAIN ####[facility] Kltudmlkxj7395 [place] [address]Dr. Farhat Leal GRAM POSITIVE COCCI Normal [facility] Comment on above: Performed By: #### G STAIN ####[facility] Ghuxhggnyh4038 [place] [address]Dr. Farhat Leal GRAM STAIN SOURCE RT CALCANEOUS Normal [facility] Comment on above: Performed By: #### G STAIN ####[facility] Eojweplavp[address] [place], [place] [address]Dr. Farhat Leal GS_DIPTH Normal [facility] Comment on above: Performed By: #### G STAIN ####[facility] Vjfzdqnxtj[address] [place], [place] [address]Dr. Farhat Leal WBC RARE Normal [facility] Comment on above: Performed By: #### G STAIN ####[facility] Qilwdkxlko1073 [place] [address]Dr. Farhat Leal DIPHTHEROIDS Normal [facility] Comment on above: Performed By: #### G STAIN ####[facility] Nipcuwiupx3578 [place] [address]Dr. Farhat Leal EPITHELIALS Normal [facility] Comment on above: Performed By: #### G STAIN ####[facility] Gdyzmmhjkh7056 [place] [address]Dr. Farhat Leal FUNGAL ELEMENTS Normal [facility] Comment on above: Performed By: #### G STAIN ####[facility] Iswjoaiadm4807 [place] [address]Dr. Farhat Leal GRAM NEG BACILLI FEW Normal [facility] Comment on above: Performed By: #### G STAIN ####[facility] Lbgadvsjte9324 [place] [address]Dr. Farhat Leal GRAM NEG DIPPLOCOCCI Normal [facility] Comment on above: Performed By: #### G STAIN ####[facility] Njskjlgntg2887 [place] [address]Dr. Farhat Leal GRAM POS BACILLI Normal [facility] Comment on above: Performed By: #### G STAIN ####[facility] Hqdadzqzan22[address] [place], [place] [address]Dr. Farhat Leal GRAM POSITIVE COCCI FEW Normal [facility] Comment on above: Performed By: #### G STAIN ####[facility] Rdlowxlzuf622[address] [place], [place] [address]Dr. Farhat Leal GRAM STAIN SOURCE #2 Rt foot abscess Normal [facility] Comment on above: Performed By: #### G STAIN ####[facility] Ujumvkqefa53[address] [place], [place] [address]Dr. Farhat Leal GS_DIPTH Normal [facility] Comment on above: Performed By: #### G STAIN ####[facility] Qusfdvqeas8834[address] [place], [place] [address]Dr. Farhat Leal WBC RARE Normal [facility] Comment on above: Performed By: #### G STAIN ####[facility] Nlpuorlwuj8[address] [place], [place] [address]Dr. Farhat Leal DIPHTHEROIDS Normal [facility] Comment on above: Performed By: #### G STAIN ####[facility] Ldfknjfqrh35[address] [place], [place] [address]Dr. Farhat Leal EPITHELIALS Normal [facility] Comment on above: Performed By: #### G STAIN ####[facility] Dvqfrtzgpn26[address] [place], [place] [address]Dr. Farhat Leal FUNGAL ELEMENTS Normal [facility] Comment on above: Performed By: #### G STAIN ####[facility] Axvyraszgm9[address] [place], [place] [address]Dr. Farhat Leal GRAM NEG BACILLI FEW Normal [facility] Comment on above: Performed By: #### G STAIN ####[facility] Dysynpjpnm1338 [place] [address]Dr. Farhat Leal GRAM NEG DIPPLOCOCCI Normal [facility] Comment on above: Performed By: #### G STAIN ####[facility] Fovlzudtxu2303 [place] [address]Dr. Farhat Leal GRAM POS BACILLI Normal [facility] Comment on above: Performed By: #### G STAIN ####[facility] Cvxlosnizi0239 [place] [address]Dr. Farhat Leal GRAM POSITIVE COCCI FEW Normal [facility] Comment on above: Performed By: #### G STAIN ####[facility] Iupowgviqu7763 [place] [address]Dr. Farhat Leal GRAM STAIN SOURCE #1 Rt foot abscess Normal [facility] Comment on above: Performed By: #### G STAIN ####[facility] Peazkkmfpc[address] [place], [place] [address]Dr. Farhat Leal GS_DIPTH Normal [facility] Comment on above: Performed By: #### G STAIN ####[facility] Trpoqvnclw1477 [place] [address]Dr. Farhat Leal WBC NONE SEEN Normal [facility] Comment on above: Performed By: #### G STAIN ####[facility] Qxrwzdxhkn1982 [place] [address]Dr. Farhat Leal POINT OF CARE GLUCOSEon 11-15 Glucose [Mass/Vol] 331 mg/dL Critically high 74-106 [facility] Comment on above: Performed By: #### P OCGLUC ####[facility] Nnafdkjyxn3168 [place] [address]Dr. Farhat Leal Glucose [Mass/Vol] 236 mg/dL Critically high 74-106 [facility] Comment on above: Performed By: #### P OCGLUC ####[facility] Ominrscrjs1135 [place] [address]Dr. Farhat Leal PROF 14(COMP METB)on 022 Albumin [Mass/Vol] 1.6 g/dL Critically low 3.4-5.0 [facility] Comment on above: Performed By: #### B QUARRY WORKER, CMP, CRP ####[facility] Kzqwvotqoq65[address] [place], [place] [address]Dr. Farhat Leal Albumin/Globulin [Mass ratio] 0.4 {ratio} Normal [facility] Comment on above: Performed By: #### B QUARRY WORKER, CMP, CRP ####[facility] Tjyupdjhxo[address] [place], [place] [address]Dr. Farhat Leal ALP [Catalytic activity/Vol] 94 U/L Normal 46-116 [facility] Comment on above: Performed By: #### B QUARRY WORKER, CMP, CRP ####[facility] Kyhffvjjrb[address] [place], [place] [address]Dr. Farhat Leal ALT [Catalytic activity/Vol] 49 U/L Normal 16-63 [facility] Comment on above: Performed By: #### B QUARRY WORKER, CMP, CRP ####[facility] Msbnlqwggx2137[address] [place], [place] [address]Dr. Farhat Leal Anion gap [Moles/Vol] 12.5 mmol/L Normal [facility] Comment on above: Performed By: #### B QUARRY WORKER, CMP, CRP ####[facility] Txeptnokfr38[address] [place], [place] [address]Dr. Farhat Leal AST [Catalytic activity/Vol] 102 U/L Critically high 15-37 [facility] Comment on above: Performed By: #### B QUARRY WORKER, CMP, CRP ####[facility] Rgecajpdnt9399[address] [place], [place] [address]Dr. Farhat Leal Bilirubin [Mass/Vol] 0.8 mg/dL Normal 0.2-1.0 [facility] Comment on above: Performed By: #### B QUARRY WORKER, CMP, CRP ####[facility] Zqtfamaeen0107[address] [place], [place] [address]Dr. Farhat Leal Calcium [Mass/Vol] 8.4 mg/dL Critically low 8.5-10.1 [facility] Comment on above: Performed By: #### B QUARRY WORKER, CMP, CRP ####[facility] Ksayecxuek7498 [place] [address]Dr. Madelynlorri Leal Chloride [Moles/Vol] 96 mmol/L Critically low 98-107 [facility] Comment on above: Performed By: #### B QUARRY WORKER, CMP, CRP ####[facility] Tgxnimwazb01[address] [place], [place] [address]Dr. Farhat Leal CO2 [Moles/Vol] 24.8 mmol/L Normal 21.0-32.0 [facility] Comment on above: Performed By: #### B QUARRY WORKER, CMP, CRP ####[facility] Uifywqdnsg13[address] [place], [place] [address]Dr. Madelynlorri Elvis Creatinine [Mass/Vol] 1.36 mg/dL Critically high 0.70-1.30 [facility] Comment on above: Performed By: #### B QUARRY WORKER, CMP, CRP ####[facility] Kefwbdpimw[address] [place], [place] [address]Dr. Farhat Leal EGFR-AF JORDANIAN >60 Normal >=60 [facility] Comment on above: Performed By: #### B QUARRY WORKER, CMP, CRP ####[facility] Yhojbmnsao9166[address] [place], [place] [address]Dr. Madelynlorri Elvis EGFR-NON AF JORDANIAN 51 mL/min/1.73m2 Critically low >=60 [facility] Comment on above: Performed By: #### B QUARRY WORKER, CMP, CRP ####[facility] Qkskroogrg7158[address] [place], [place] [address]Dr. Farhat Leal Globulin (S) [Mass/Vol] 4.1 g/dL Normal [facility] Comment on above: Performed By: #### B QUARRY WORKER, CMP, CRP ####[facility] Ldfrsxthxx2841 [place] [address]Dr. Farhat Leal Glucose [Mass/Vol] 204 mg/dL Critically high 74-106 [facility] Comment on above: Performed By: #### B QUARRY WORKER, CMP, CRP ####[facility] Kysytzomlu15[address] [place], [place] [address]Dr. Farhat Leal Potassium [Moles/Vol] 4.3 mmol/L Normal 3.5-5.1 [facility] Comment on above: Performed By: #### B QUARRY WORKER, CMP, CRP ####[facility] Miaxhlzqfi2757 [place] [address]Dr. Farhat Leal Protein [Mass/Vol] 5.7 g/dL Critically low 6.4-8.2 [facility] Comment on above: Performed By: #### B QUARRY WORKER, CMP, CRP ####[facility] Nflpyddwez6386 [place] [address]Dr. Farhat Leal Sodium [Moles/Vol] 129 mmol/L Critically low 136-145 [facility] Comment on above: Performed By: #### B QUARRY WORKER, CMP, CRP ####[facility] Vdolstpdlp[address] [place], [place] [address]Dr. Farhat Leal Urea nitrogen [Mass/Vol] 41.0 mg/dL Critically high 7.0-18.0 [facility] Comment on above: Performed By: #### B QUARRY WORKER, CMP, CRP ####[facility] Qbpfskypod[address] [place], [place] [address]Dr. Farhat Leal Urea nitrogen/Creatinine [Mass ratio] 30.1 mg/mg Normal [facility] Comment on above: Performed By: #### B QUARRY WORKER, CMP, CRP ####[facility] Mmrzftjpvr1846[address] [place], [place] [address]Dr. Farhat Leal PROTIMEon 11-24-2021 INR Coag (PPP) [Relative time] 2.20 {INR} Normal [facility] Comment on above: Performed By: #### P T ####[facility] Jptainmxwm5[address] [place], [place] [address]Dr. Farhat Leal INR GUIDELINES SEE BELOW Normal [facility] Comment on above: Result Comment: MALINA RED INR: 2.0 - 3.0 CONDITIONS NOT LISTED BELOW 2.5 - 3.5 FOR PROSTHETIC HEART VALVE REPLACEMENT 2.5 - 3.5 RECURRENT THROMBOSIS Performed By: #### P T ####[facility] Mjyhvibbrf[address] [place], [place] [address]Dr. Farhat Leal PT Coag (PPP) [Time] 22.6 s Critically high 9.0-11.6 [facility] Comment on above: Performed By: #### P T ####[facility] Nnwuvpxale3966 [place] [id number]. Farhat Leal SED RATE WESTFormerly [facility] 2021 SED RATE 80 mm/hr Critically high <=20 [facility] Comment on above: Performed By: #### S EDR ####[facility] Ddmagkwlcc0815 [place] [id number]. Farhat Leal BLOOD CULTURE ID PANELon A. baumannii Not detected Normal NOT DETECTED [facility] Comment on above: Performed By: #### B CID2 ####[facility] D[address]hzhaqjy[address] [place], [place] [id number]. Farhat Leal Bacteriodes fragilis Not detected Normal NOT DETECTED [facility] Comment on above: Performed By: #### B CID2 ####[facility] Ulkbctfyiz[address] [place], [place] [address]Dr. Farhat Leal BCID CONTROLS PASSED Normal [facility] Comment on above: Performed By: #### B CID2 ####[facility] Ccztjoyeuz5747 [place] [address]Dr. Farhat Elvis BCIDBTHD BLOOD CULTURE BOTTLE INFORMATION Normal [facility] Comment on above: Performed By: #### B CID2 ####[facility] Osypfcskya5165 [place] [id number]. Farhat Leal BCIDHD1 ANTIMICROBIAL RESISTANCE GENES Normal [facility] Comment on above: Performed By: #### B CID2 ####[facility] Jzukagbbhh4[address] [place], [place] [address]Dr. Farhat Leal BCIDHD2 SEE BELOW Normal [facility] Comment on above: Result Comment: Note : Antimicrobial resitance can occur via multiple mechanisms. A Not Detected result for the [employer] antomicrobial resistance gene assays does not indicate antimicrobial susceptibility. Subculturing is required for species identification and susceptibility testing of isolates. Performed By: #### B CID2 ####[facility] [address]hybtrtj[address] [place], [place] [address]Dr. Farhat Leal BCIDHD3 Positive Normal [facility] Comment on above: Performed By: #### B CID2 ####[facility] Nognmjvcyt6350 [place] [address]Dr. Farhat Leal BCIDHD4 Negative Normal [facility] Comment on above: Performed By: #### B CID2 ####[facility] Tvvvxcfbuo5071 [place] [address]Dr. Farhat Leal BCIDHD5 YEAST Normal [facility] Comment on above: Performed By: #### B CID2 ####[facility] [address]ztrgwvdm[address] [place], [place] [address]Dr. Farhat Leal Bottle Set: Set 1 Normal [facility] [facility] Comment on above: Performed By: #### B CID2 ####[facility] Vwgigrszhs[address] [place], [place] [address]Dr. Farhat Leal Bottle: Aerobic Normal [facility] Comment on above: Performed By: #### B CID2 ####[facility] Fbcsrdvwld3[address] [place], [place] [address]Dr. Farhat Leal C. neoformans/gattii Not detected Normal NOT DETECTED [facility] Comment on above: Performed By: #### B CID2 ####[facility] Grohisfibv6[address] [place], [place] [address]Dr. Farhat Leal Disha albicans Not detected Normal NOT DETECTED [facility] Comment on above: Performed By: #### B CID2 ####[facility] Rkanmeqnor7410[address] [place], [place] [address]Dr. Yilorri Leal Disha auris Not detected Normal NOT DETECTED [facility] Comment on above: Performed By: #### B CID2 ####[facility] Nodybparyx228[address] [place], [place] [address]Dr. Yilorri Leal Disha glabrata Not detected Normal NOT DETECTED [facility] Comment on above: Performed By: #### B CID2 ####[facility] Nkvgvremxv9[address] [place], [place] [address]Dr. Yilorri Leal Disha Krusei Not detected Normal NOT DETECTED The [facility] Comment on above: Performed By: #### B CID2 ####[facility] Afpaaihgko2544[address] [place], [place] [address]Dr. Yilorri Leal Disha Parapsilosis Not detected Normal NOT DETECTED [facility] Comment on above: Performed By: #### B CID2 ####[facility] Csmueehhta9823[address] [place], [place] [address]Dr. Farhat Leal Disha Tropicalis Not detected Normal NOT DETECTED [facility] Comment on above: Performed By: #### B CID2 ####[facility] Tqnepxuxkf8[address] [place], [place] [address]Dr. Madelynlorri Leal CTX-M Resistant Gene Not Applicable Normal NOT DETECTE D [facility] Comment on above: Performed By: #### B CID2 ####[facility] Nopoatntle2726[address] [place], [place] [address]Dr. Farhat Leal E. Cloacae complex Not detected Normal NOT DETECTED [facility] Comment on above: Performed By: #### B CID2 ####[facility] Xgurgwrswa0067[address] [place], [place] [address]Dr. Farhat Leal E. faecalis Not detected Normal NOT DETECTED The [facility] Comment on above: Performed By: #### B CID2 ####[facility] Czkkrslxbb1183[address] [place], [place] [address]Dr. Farhat Leal E. faecium Not detected Normal NOT DETECTED [facility] Comment on above: Performed By: #### B CID2 ####[facility] Rwhujdkiva1925[address] [place], [place] [address]Dr. Farhat Leal Enterobacteriaceae Not detected Normal NOT DETECTED [facility] Comment on above: Performed By: #### B CID2 ####[facility] Rvijkpnnhe2887[address] [place], [place] [address]Dr. Farhat Leal Escherichia coli Not detected Normal NOT DETECTED [facility] Comment on above: Performed By: #### B CID2 ####[facility] Smohfpmkju[address] [place], [place] [address]Dr. Farhat Leal H. influenzae Not detected Normal NOT DETECTED [facility] Comment on above: Performed By: #### B CID2 ####[facility] Irqyxfgzom9710[address] [place], [place] [address]Dr. Madelynlorri Leal IMP Resistant Gene Not Applicable Normal NOT DETECTED [facility] Comment on above: Performed By: #### B CID2 ####[facility] [address]twsm[address] [place] [address]Dr. Farhat Leal K. oxytoca Not detected Normal NOT DETECTED [facility] Comment on above: Performed By: #### B CID2 ####[facility] M[address]yhqegb[address] [place] [address]Dr. Farhat Leal K. pneumoniae Not detected Normal NOT DETECTED [facility] Comment on above: Performed By: #### B CID2 ####[facility] Obpuraeqmb099[address] [place], [place] [address]Dr. Farhat Leal Klebsiella aerogenes Not detected Normal NOT DETECTED [facility] Comment on above: Performed By: #### B CID2 ####[facility] Vuyfzfwzbv9235[address] [place], [place] [address]Dr. Frahat Leal KPC Resistant Gene Not Applicable Normal NOT DETECTED [facility] Comment on above: Performed By: #### B CID2 ####[facility] Lhzkhrrube4064[address] [place], [place] [address]Dr. Farhat Leal List. monocytogenes Not detected Normal NOT DETECTED T [facility] Comment on above: Performed By: #### B CID2 ####[facility] Tbclkzvgiw0709[address] [place], [place] [address]Dr. Farhat Leal Mcr-1 Resistant Gene Not Applicable Normal NOT DETECTE D [facility] Comment on above: Performed By: #### B CID2 ####[facility] Bxnrdurwps0705[address] [place], [place] [address]Dr. Farhat Leal mecA/C Not Applicable Normal NOT DETECTED The [facility] Comment on above: Performed By: #### B CID2 ####[facility] Leegedntwf6038[address] [place], [place] [address]Dr. Farhat Leal mecA/C MREJ Detected Abnormal NOT DETECTED [facility] Comment on above: Performed By: #### B CID2 ####[facility] Su[address]possof[address] [place] [address]Dr. Farhat Leal N. meningitidis Not detected Normal NOT DETECTED [facility] Comment on above: Performed By: #### B CID2 ####[facility] Kjpyiboubi4785[address] [place], [place] [address]Dr. Farhat Leal NDM Resistant Gene Not Applicable Normal NOT DETECTED [facility] Comment on above: Performed By: #### B CID2 ####[facility] Gasnllklow8255[address] [place], [place] [address]Dr. Farhat Leal Oxa-48-like Not Applicable Normal NOT DETECTED [facility] Comment on above: Performed By: #### B CID2 ####[facility] Jllcexwjwm0979[address] [place], [place] [address]Dr. Farhat Leal Proteus Not detected Normal NOT DETECTED [facility] Comment on above: Performed By: #### B CID2 ####[facility] Kuykpxxtjs3298[address] [place], [place] [address]Dr. Farhat Leal Pseud. aeruginosa Not detected Normal NOT DETECTED [facility] Comment on above: Performed By: #### B CID2 ####[facility] Atnhmlmrzt5998[address] [place], [place] [address]Dr. Farhat Leal S. maltophilia Not detected Normal NOT DETECTED The [facility] Comment on above: Performed By: #### B CID2 ####[facility] Mrkbmprxxv9475[address] [place], [place] [address]Dr. Farhat Leal Salmonella Not detected Normal NOT DETECTED [facility] Comment on above: Performed By: #### B CID2 ####[facility] Ixmlulsnsn157[address] [place], [place] [address]Dr. Farhat Leal Seratia marcescens Not detected Normal NOT DETECTED [facility] Comment on above: Performed By: #### B CID2 ####[facility] Uapkxotnnz6944[address] [place], [place] [address]Dr. Farhat Leal Site: Rt Hand Normal [facility] Comment on above: Performed By: #### B CID2 ####[facility] Mcqtrpdldi6569[address] [place], [place] [address]Dr. Farhat Leal Staph. aureus Detected Abnormal NOT DETECTED The [facility] Comment on above: Performed By: #### B CID2 ####[facility] Rblrwxsfjy8480[address] [place], [place] [address]Dr. Farhat Leal Staph. epidermidis Not detected Normal NOT DETECTED [facility] Comment on above: Performed By: #### B CID2 ####[facility] Rjddhgziob2636[address] [place], [place] [address]Dr. Farhat Leal Staph. lugdunensis Not detected Normal NOT DETECTED [facility] Comment on above: Performed By: #### B CID2 ####[facility] Qlqbhdfemn4309[address] [place], [place] [address]Dr. Farhat Leal Staphylococcus Detected Abnormal NOT DETECTED [facility] Comment on above: Performed By: #### B CID2 ####[facility] Smyiyjwbyq8377[address] [place], [place] [address]Dr. Farhat Leal Strep. agalactiae Not detected Normal NOT DETECTED [facility] Comment on above: Performed By: #### B CID2 ####[facility] Qznptlddni299[address] [place], [place] [address]Dr. Farhat Leal Strep. pneumoniae Not detected Normal NOT DETECTED [facility] Comment on above: Performed By: #### B CID2 ####[facility] Zswvejpdtj7[address] [place], [place] [address]Dr. Farhat Leal Strep. pyogenes Not detected Normal NOT DETECTED [facility] Comment on above: Performed By: #### B CID2 ####[facility] Sxvshcezwy9[address] [place], [place] [address]Dr. Farhat Leal Streptococcus Not detected Normal NOT DETECTED [facility] Comment on above: Performed By: #### B CID2 ####[facility] Apqpomiiwy495[address] [place], [place] [address]Dr. Farhat Leal Teodoro/B Resist. Gene Not Applicable Normal NOT DETECTED [facility] Comment on above: Performed By: #### B CID2 ####[facility] Qmxdceqhtv5475[address] [place], [place] [address]Dr. Farhat Leal VIM Resistant Gene Not Applicable Normal NOT DETECTED [facility] Comment on above: Performed By: #### B CID2 ####[facility] Wqwbxqqqyp1873[address] [place], [place] [address]Dr. Farhat Leal BNPon 11-23-2021 Natriuretic peptide B (Bld) [Mass/Vol] 82927.0 pg/mL Critically high <=1,800.0 [facility] Comment on above: Performed By: #### C MP, CMADM, BNP ####[facility] [address] [place] [id number]. Farhat Leal CARDIAC AMANDA ADMITon 022 CK [Catalytic activity/Vol] 41 U/L Normal 39-308 [facility] Comment on above: Performed By: #### C MP, CMADM, BNP ####[facility] [address] [place] [address]Dr. Farhat Leal CK.MB [Mass/Vol] 0.98 ng/mL Normal <=3.60 [facility] Comment on above: Performed By: #### C MP, CMADM, BNP ####[facility] Mrcrimnxts[address] [place] [address]Dr. Farhat Leal HSTROP 30.1 pg/mL Normal 4.0-76.1 [facility] Comment on above: Result Comment: CUT- OFF POINTS HAVE BEEN ESTABLISHED BASED ON THE FOURTH UNIVERSAL DEFINITIONS OF MYOCARDIALINFARCTION. THE UPPER REFERENCE LIMIT (URL) OF TROPONIN, DEFINED THE 99TH PERCENTILE OFcTnI DISTRIBUTION IN A REFERENCE POPULATION, HAS BEEN CONFIRMED THE DECISION THRESHOLDFOR [place] DIAGNOSIS. Performed By: #### C MP, CMADM, BNP ####[facility] [address] [place] [address]Dr. Farhat Leal VALERIA 160 ng/mL Critically high 16-96 [facility] Comment on above: Performed By: #### C MP, CMADM, BNP ####[facility] Zfuafksequ[address] [place] [id number]. Fahrat Leal CBC AUTO DIFFon 11-23-2021 BASO # 0.0 103/ul Normal 0.0-0.1 [facility] Comment on above: Performed By: #### C BC ####[facility] R[address]qopiq[address] [place] [address]Dr. Farhat Leal Basophils/100 WBC (Bld) 0.2 % Normal 0.2-2.0 [facility] Comment on above: Performed By: #### C BC ####[facility] V[address]ck[address]monu[address] [place] [address]Dr. Farhat Leal EO # 0.0 103/ul Normal 0.0-0.7 [facility] Comment on above: Performed By: #### C BC ####[facility] Vwetknwxik[address] [place] [address]Dr. Farhat Elvis Eosinophils/100 WBC (Bld) 0.1 % Critically low 0.9-7.0 [facility] Comment on above: Performed By: #### C BC ####[facility] Vthuyzenpa[address] [place] [address]Dr. Farhat Elvis Erythrocyte distribution width (RBC) [Ratio] 13.4 % Normal 11.0-15.0 [facility] Comment on above: Performed By: #### C BC ####[facility] Twmuezahin[address] [place], [place] [address]DrSkylar Madelynlorri Leal Hematocrit (Bld) [Volume fraction] 31.6 % Critically low 42.0-54.0 [facility] Comment on above: Performed By: #### C BC ####[facility] Iqzccoevwl[address]20[address] [place], [place] [address]Dr. Farhat Leal Hemoglobin (Bld) [Mass/Vol] 10.4 g/dL Critically low 14.0-18.0 [facility] Comment on above: Performed By: #### C BC ####[facility] Cgxrjwixxh[address] [place] [address]Dr. Farhat Leal IG # 0.11 10e3/ul Critically high 0.00-0.03 [facility] Comment on above: Performed By: #### C BC ####[facility] Slhmctxfnc8356[address] [place], [place] [address]Dr. Farhat Leal IG % 0.7 % Critically high 0.0-0.5 [facility] Comment on above: Performed By: #### C BC ####[facility] Uafkjvcepl6783[address] [place], [place] [address]DrSkylar Leal LYMPH # 0.5 103/ul Critically low 1.2-3.8 [facility] Comment on above: Performed By: #### C BC ####[facility] H[address]ykedazv[address] [place] [address]Dr. Farhat Leal Lymphocytes/100 WBC (Bld) 2.8 % Critically low 20.5-60.0 [facility] Comment on above: Performed By: #### C BC ####[facility] Mapumxwsiy[address] [place] [address]DrSkylar Leal MANUAL DIFF REQ NO Normal [facility] Comment on above: Performed By: #### C BC ####[facility] Dwdhuescmo[address] [place] [address]Dr. Farhat Leal MCH (RBC) [Entitic mass] 29.8 pg Normal 25.9-34.0 [facility] Comment on above: Performed By: #### C BC ####[facility] Oesyremfik[address] [place], [place] [address]Dr. Farhat Leal MCHC (RBC) [Mass/Vol] 32.9 g/dL Normal 29.9-35.2 [facility] Comment on above: Performed By: #### C BC ####[facility] Wwbxmqaapz[address] [place], [place] [address]DrSkylar Leal MCV (RBC) [Entitic vol] 90.5 fL Normal 80.0-94.0 [facility] Comment on above: Performed By: #### C BC ####[facility] Jtuxqcwrmd[address] [place], [place] [address]Dr. Farhat Leal MONO # 1.3 103/ul Critically high 0.3-0.8 [facility] Comment on above: Performed By: #### C BC ####[facility] Astbpfpcek756[address] [place], [place] [address]Dr. Farhat Leal Monocytes/100 WBC (Bld) 8.3 % Normal 1.7-12.0 [facility] Comment on above: Performed By: #### C BC ####[facility] Iercotbtwx4235[address] [place], [place] [address]Dr. Farhat Leal NEUT # 13.9 103/ul Critically high 1.4-6.5 [facility] Comment on above: Performed By: #### C BC ####[facility] W[address]cmtbw[address] [place] [address]Dr. Farhat Leal Neutrophils/100 WBC (Bld) 87.9 % Critically high 43.0-75.0 [facility] Comment on above: Performed By: #### C BC ####[facility] Jsclukwwon9[address] [place] [address]Dr. Farhat Leal Platelet mean volume (Bld) [Entitic vol] 9.3 fL Critically low 9.5-13.5 [facility] Comment on above: Performed By: #### C BC ####[facility] I[address]bjsxsfi[address] [place] [address]Dr. Farhat Lela PLT 390 103/ul Normal 150-450 [facility] Comment on above: Performed By: #### C BC ####[facility] Afwhcbseqz1094[address] [place], [place] [address]Dr. Farhat Leal RBC 3.49 106/ul Critically low 4.70-6.10 [facility] Comment on above: Performed By: #### C BC ####[facility] Vwfdmmvdxw5[address] [place] [address]Dr. Farhat Leal WBC 15.9 103/ul Critically high 4.0-11.0 [facility] Comment on above: Performed By: #### C BC ####[facility] Kvcaetohsx32[address] [place], [place] [address]Dr. Farhat Leal CT HEAD WO CONon 11-23-2021 CT HEAD WO CON Normal [facility] CULTURE BLOODon 11-23-2021 Microscopic examination of blood, culture Culture Observations: NO GROWTH AT 5 DAYS. Normal [facility] Comment on above: Performed By: #### B LDCX2 ####[facility] F[address]rdaybf[address] [place] [address]Dr. Farhat Elvis Covid-19 PCR (CVDTB)on SARS-CoV-2 (COVID-19) RNA JOSH+probe Ql (Unsp spec) Not detected Normal NOT DETECTED [facility] Comment on above: Result Comment: When [...] for this test is supported by the [employer] of Health and Human Service's declaration that [...] be used). Performed By: #### C VDTBH ####[facility] Vivpnrkhsc[address] [place], [place] [address]DrSkylar Leal LACTATE/LACTIC ACIDon 2021 Lactate [Moles/Vol] 1.3 mmol/L Normal 0.4-1.9 [facility] Comment on above: Performed By: #### L ACT ####[facility] Kgyghbokyf[address] [place], [place] [address]DrSkylar Leal Lactate [Moles/Vol] 1.3 mmol/L Normal 0.4-1.9 [facility] Comment on above: Performed By: #### L ACT ####[facility] Sprxhvfxgo[address] [place], [place] [address]DrSkylar Leal POINT OF CARE GLUCOSEon Glucose [Mass/Vol] 252 mg/dL Critically high 74-106 T [facility] Comment on above: Performed By: #### P OCGLUC ####[facility] Kajggkexxr[address] [place], [place] [address]DrSkylar Leal PROF 14(COMP METB)on 022 Albumin [Mass/Vol] 1.6 g/dL Critically low 3.4-5.0 [facility] Comment on above: Performed By: #### C MP, CMADM, BNP ####[facility] Pewdnybsbu[address] [place] [address]Dr. Farhat Evlis Albumin/Globulin [Mass ratio] 0.4 {ratio} Normal [facility] Comment on above: Performed By: #### C MP, CMADM, BNP ####[facility] U[address]ip[address]lhzz[address] [place] [address]Dr. Farhat Elvis ALP [Catalytic activity/Vol] 98 U/L Normal 46-116 [facility] Comment on above: Performed By: #### C MP, CMADM, BNP ####[facility] Rrsafcjhsr[address] [place] [address]Dr. Farhat Leal ALT [Catalytic activity/Vol] 52 U/L Normal 16-63 [facility] Comment on above: Performed By: #### C MP, CMADM, BNP ####[facility] Zgrybijcyq40[address] [place] [address]Dr. Farhat Leal Anion gap [Moles/Vol] 9.8 mmol/L Normal [facility] Comment on above: Performed By: #### C MP, CMADM, BNP ####[facility] Rodrnghstm[address] [place], [place] [address]Dr. Farhat Leal AST [Catalytic activity/Vol] 122 U/L Critically high 15-37 [facility] Comment on above: Performed By: #### C MP, CMADM, BNP ####[facility] Entnhqepfv22[address] [place] [address]Dr. Farhat Leal Bilirubin [Mass/Vol] 0.7 mg/dL Normal 0.2-1.0 [facility] Comment on above: Performed By: #### C MP, CMADM, BNP ####[facility] Dasxzydwgg[address] [place] [address]Dr. Farhat Leal Calcium [Mass/Vol] 8.6 mg/dL Normal 8.5-10.1 [facility] Comment on above: Performed By: #### C MP, CMADM, BNP ####[facility] Xmzersxzxj9[address] [place] [address]Dr. Farhat Leal Chloride [Moles/Vol] 95 mmol/L Critically low 98-107 [facility] Comment on above: Performed By: #### C MP, CMADM, BNP ####[facility] Jbldjqptoe[address] [place] [address]Dr. Farhat Leal CO2 [Moles/Vol] 29.6 mmol/L Normal 21.0-32.0 [facility] Comment on above: Performed By: #### C MP, CMADM, BNP ####[facility] Safscbwvav7[address] [place] [address]Dr. Farhat Leal Creatinine [Mass/Vol] 1.49 mg/dL Critically high 0.70-1.30 [facility] Comment on above: Performed By: #### C MP, CMADM, BNP ####[facility] Sfnmeobtyt[address] [place], [place] [address]Dr. Farhat Leal EGFR-AF JORDANIAN 55 mL/min/1.73m2 Critically low >=60 [facility] Comment on above: Performed By: #### C MP, CMADM, BNP ####[facility] Njejbobygf[address] [place], [place] [address]Dr. Farhat Leal EGFR-NON AF JORDANIAN 46 mL/min/1.73m2 Critically low >=60 [facility] Comment on above: Performed By: #### C MP, CMADM, BNP ####[facility] Sbboejxtpq7[address] [place] [address]Dr. Farhat Leal Globulin (S) [Mass/Vol] 4.3 g/dL Normal [facility] Comment on above: Performed By: #### C MP, CMADM, BNP ####[facility] Ncsugeazip14[address] [place] [address]Dr. Farhat Leal Glucose [Mass/Vol] 213 mg/dL Critically high 74-106 [facility] Comment on above: Performed By: #### C MP, CMADM, BNP ####[facility] Nzpexuyxfn1863 [place] [address]Dr. Farhat Leal Potassium [Moles/Vol] 4.4 mmol/L Normal 3.5-5.1 [facility] Comment on above: Performed By: #### C MP, CMADM, BNP ####[facility] Alygjtlecv5[address] [place] [address]Dr. Farhat Lela Protein [Mass/Vol] 5.9 g/dL Critically low 6.4-8.2 [facility] Comment on above: Performed By: #### C MP, CMADM, BNP ####[facility] Kjtdvfohxj[address] [place], [place] [address]Dr. Farhat Leal Sodium [Moles/Vol] 130 mmol/L Critically low 136-145 [facility] Comment on above: Performed By: #### C MP, CMADM, BNP ####[facility] Deiavsnwef[address] [place], [place] [address]Dr. Farhat Leal Urea nitrogen [Mass/Vol] 46.0 mg/dL Critically high 7.0-18.0 [facility] Comment on above: Performed By: #### C MP, CMADM, BNP ####[facility] Holnaoarjc[address] [place], [place] [address]Dr. Farhat Leal Urea nitrogen/Creatinine [Mass ratio] 30.9 mg/mg Normal [facility] Comment on above: Performed By: #### C MP, CMADM, BNP ####[facility] Aoxrmwyubr[address] [place], [place] [address]Dr. Farhat Leal PROTIMEon 11-23-2021 INR Coag (PPP) [Relative time] 2.55 {INR} Normal [facility] Comment on above: Performed By: #### P TT, PT ####[facility] Meojesolfm[address] [place], [place] [address]Dr. Farhat Leal INR GUIDELINES SEE BELOW Normal [facility] Comment on above: Result Comment: MALINA RED INR: 2.0 - 3.0 CONDITIONS NOT LISTED BELOW 2.5 - 3.5 FOR PROSTHETIC HEART VALVE REPLACEMENT 2.5 - 3.5 RECURRENT THROMBOSIS Performed By: #### P TT, PT ####[facility] Krstluhyoh[address] [place], [place] [address]Dr. Farhat Leal PT Coag (PPP) [Time] 25.9 s Critically high 9.0-11.6 [facility] Comment on above: Performed By: #### P TT, PT ####[facility] [address]quwakzmng[address] [place] [id number]. Farhat Leal PTTon 11-23-2021 aPTT Coag (Bld) [Time] 39.9 s Critically high 22.3-36. 2 [facility] Comment on above: Performed By: #### P TT, PT ####[facility] Jzxmxlcjzk[address] [place], [place] [address]Dr. Farhat Leal XR CHEST 1 Von 11-23-2021 XR CHEST 1 V Normal [facility] XR HEEL RT 2Von 11-23-2021 XR HEEL RT 2V Normal [facility] XR FOOT RT MIN 3 VIEWSon XR FOOT RT MIN 3 VIEWS Normal [facility] US ARTERY LEG RTon US ARTERY LEG RT Normal [facility] CBC AUTO DIFFon 09-24-2021 BASO # 0.1 103/ul Normal 0.0-0.1 [facility] [facility] Comment on above: Performed By: #### C BC ####[facility] [address]phkokz[address] [place] [address]Dr. Farhat Leal Basophils/100 WBC (Bld) 0.7 % Normal 0.2-2.0 [facility] Comment on above: Performed By: #### C BC ####[facility] Psjxvbuuiq[address] [place], [place] [address]Dr. Farhat Leal EO # 0.3 103/ul Normal 0.0-0.7 [facility] Comment on above: Performed By: #### C BC ####[facility] Qufsrgvqdg35[address] [place] [id number]. Farhat Leal Eosinophils/100 WBC (Bld) 3.9 % Normal 0.9-7.0 [facility] Comment on above: Performed By: #### C BC ####[facility] Kskfhcxyfg7884 [place] [address]Dr. Farhat Leal Erythrocyte distribution width (RBC) [Ratio] 12.6 % Normal 11.0-15.0 [facility] Comment on above: Performed By: #### C BC ####[facility] Efavbwdlgk[address] [place] [address]Dr. Farhat Leal Hematocrit (Bld) [Volume fraction] 38.9 % Critically low 42.0-54.0 [facility] Comment on above: Performed By: #### C BC ####[facility] Afhwhilvvy10[address] [place] [address]DrSkylar Joshilorri Elvis Hemoglobin (Bld) [Mass/Vol] 12.8 g/dL Critically low 14.0-18.0 [facility] Comment on above: Performed By: #### C BC ####[facility] Ykiebjvrgw[address] [place], [place] [address]DrSkylar Leal IG # 0.10 10e3/ul Critically high 0.00-0.03 [facility] Comment on above: Performed By: #### C BC ####[facility] Xbheewwlcp[address] [place], [place] [address]DrSkylar Leal IG % 1.2 % Critically high 0.0-0.5 [facility] Comment on above: Performed By: #### C BC ####[facility] Actuqhlaso8[address] [place], [place] [address]DrSkylar Madelynlorri Leal LYMPH # 2.1 103/ul Normal 1.2-3.8 [facility] Comment on above: Performed By: #### C BC ####[facility] Uahxudasxo6360[address] [place], [place] [address]DrSkylar Leal Lymphocytes/100 WBC (Bld) 25.9 % Normal 20.5-60.0 [facility] Comment on above: Performed By: #### C BC ####[facility] Muymeflvnh286[address] [place], [place] [address]DrSkylar Madelynlorri Leal MANUAL DIFF REQ NO Normal [facility] Comment on above: Performed By: #### C BC ####[facility] Ajlevcmphn549[address] [place], [place] [address]DrSkylar Leal MCH (RBC) [Entitic mass] 31.1 pg Normal 25.9-34.0 [facility] Comment on above: Performed By: #### C BC ####[facility] Xybanvydwx0989 [place] [id number]. Farhat Elvis MCHC (RBC) [Mass/Vol] 32.9 g/dL Normal 29.9-35.2 [facility] Comment on above: Performed By: #### C BC ####[facility] Wdglnaxqle4907 [place] [id number]. Madelynlorri Elvis MCV (RBC) [Entitic vol] 94.6 fL Critically high 80.0-94.0 [facility] Comment on above: Performed By: #### C BC ####[facility] Wgfcxvojpu40[address] [place] [address]DrSkylar Leal MONO # 1.2 103/ul Critically high 0.3-0.8 [facility] Comment on above: Performed By: #### C BC ####[facility] Tuhswwmcki[address] [place], [place] [address]Dr. Farhat Leal Monocytes/100 WBC (Bld) 14.1 % Critically high 1.7-12.0 [facility] Comment on above: Performed By: #### C BC ####[facility] Soajczslsv497[address] [place], [place] [address]Dr. Farhat Leal NEUT # 4.4 103/ul Normal 1.4-6.5 [facility] Comment on above: Performed By: #### C BC ####[facility] Oxacyzeueb3660[address] [place], [place] [address]Dr. Farhat Leal Neutrophils/100 WBC (Bld) 54.2 % Normal 43.0-75.0 [facility] Comment on above: Performed By: #### C BC ####[facility] Vvilskplwz[address] [place], [place] [id number] Leal Platelet mean volume (Bld) [Entitic vol] 9.9 fL Normal 9.5-13.5 [facility] Comment on above: Performed By: #### C BC ####[facility] Wjleybltgf9[address] [place], [place] [address]Dr. Farhat Leal PLT 224 103/ul Normal 150-450 [facility] Comment on above: Performed By: #### C BC ####[facility] Emvqalkxff9103 [place] [id number]. Farhat Leal RBC 4.11 106/ul Critically low 4.70-6.10 [facility] Comment on above: Performed By: #### C BC ####[facility] Ududleenhh7089 [place] [address]Dr. Farhat Leal WBC 8.2 103/ul Normal 4.0-11.0 [facility] Comment on above: Performed By: #### C BC ####[facility] Ynukvcmqyg9192 [place] [address]Dr. Farhat Leal PROF CHEM 8 (BAS METB)on Anion gap [Moles/Vol] 9.6 mmol/L Normal [facility] Comment on above: Performed By: #### B MP ####[facility] Exxuuqpwug30[address] [place] [address]Dr. Farhat Leal Calcium [Mass/Vol] 8.6 mg/dL Normal 8.5-10.1 [facility] Comment on above: Performed By: #### B MP ####[facility] Tyssqnwehm6[address] [place] [address]Dr. Farhat Leal Chloride [Moles/Vol] 94 mmol/L Critically low 98-107 [facility] Comment on above: Performed By: #### B MP ####[facility] Vgbnzlosgr5544 [place] [address]Dr. Farhat Leal CO2 [Moles/Vol] 28.1 mmol/L Normal 21.0-32.0 [facility] Comment on above: Performed By: #### B MP ####[facility] Gorezaepfe6325 [place] [address]Dr. Farhat Leal Creatinine [Mass/Vol] 1.91 mg/dL Critically high 0.70-1.30 [facility] Comment on above: Performed By: #### B MP ####[facility] Einkoukmvc8027 [place] [address]Dr. Farhat Leal EGFR-AF JORDANIAN 42 mL/min/1.73m2 Critically low >=60 [facility] Comment on above: Performed By: #### B MP ####[facility] Xkynxzshqt024[address] [place], [place] [address]Dr. Farhat Leal EGFR-NON AF JORDANIAN 34 mL/min/1.73m2 Critically low >=60 [facility] Comment on above: Performed By: #### B MP ####[facility] Ctugplepkn0920[address] [place], [place] [address]Dr. Farhat Leal Glucose [Mass/Vol] 314 mg/dL Critically high 74-106 T [facility] Comment on above: Performed By: #### B MP ####[facility] Tmfgemklxq8[address] [place], [place] [address]Dr. Farhat Leal Potassium [Moles/Vol] 4.7 mmol/L Normal 3.5-5.1 [facility] Comment on above: Performed By: #### B MP ####[facility] Lvcsyiiorb4845[address] [place], [place] [address]Dr. Farhat Leal Sodium [Moles/Vol] 127 mmol/L Critically low 136-145 [facility] Comment on above: Performed By: #### B MP ####[facility] Zsmklpfwxr219[address] [place], [place] [address]Dr. Farhat Leal Urea nitrogen [Mass/Vol] 79.0 mg/dL Critically high 7.0-18.0 [facility] Comment on above: Result Comment: repe ated Performed By: #### B MP ####[facility] Gyzvhphhdj5614[address] [place], [place] [address]Dr. Farhat Leal Urea nitrogen/Creatinine [Mass ratio] 41.4 mg/mg Normal [facility] Comment on above: Performed By: #### B MP ####[facility] Gvdydotsob1885[address] [place], [place] [address]Dr. Farhat Leal PTT HEPARIN MONITORon 2021 aPTT Coag (Bld) [Time] 42.7 s Normal 39.5-54.2 [facility] Comment on above: Performed By: #### P TTHEP ####[facility] Jgtyvvzxmx8060[address] [place], [place] [address]Dr. Madelynlorri Leal aPTT Coag (Bld) [Time] 56.7 s Critically high 39.5-54. 2 [facility] Comment on above: Performed By: #### P TTHEP ####[facility] Osrbtqsgad006[address] [place], [place] [address]Dr. Farhat Elvis CBC AUTO DIFFon 09-23-2021 BASO # 0.1 103/ul Normal 0.0-0.1 [facility] Comment on above: Performed By: #### C BC ####[facility] Scaybrsnsj0839[address] [place], [place] [address]Dr. Farhat Leal Basophils/100 WBC (Bld) 0.6 % Normal 0.2-2.0 [facility] Comment on above: Performed By: #### C BC ####[facility] Fcqoxhctci8974[address] [place], [place] [address]Dr. Farhat Leal EO # 0.2 103/ul Normal 0.0-0.7 [facility] Comment on above: Performed By: #### C BC ####[facility] Izopqppxiz5[address] [place], [place] [address]Dr. Farhat Leal Eosinophils/100 WBC (Bld) 2.6 % Normal 0.9-7.0 [facility] Comment on above: Performed By: #### C BC ####[facility] Onvgxnawxm5775[address] [place], [place] [address]Dr. Farhat Leal Erythrocyte distribution width (RBC) [Ratio] 12.4 % Normal 11.0-15.0 [facility] Comment on above: Performed By: #### C BC ####[facility] Sxexyiqaju59[address] [place], [place] [address]Dr. Farhat Leal Hematocrit (Bld) [Volume fraction] 38.4 % Critically low 42.0-54.0 [facility] Comment on above: Performed By: #### C BC ####[facility] Bdraaptamj7712[address] [place], [place] [address]Dr. Farhat Leal Hemoglobin (Bld) [Mass/Vol] 12.8 g/dL Critically low 14.0-18.0 [facility] Comment on above: Performed By: #### C BC ####[facility] Dovedsxpnr27[address] [place] [id number]. Madelynlorri Leal IG # 0.06 10e3/ul Critically high 0.00-0.03 [facility] Comment on above: Performed By: #### C BC ####[facility] Fcqnzvgxik5572 [place] [address]Dr. Farhat Leal IG % 0.8 % Critically high 0.0-0.5 [facility] Comment on above: Performed By: #### C BC ####[facility] Etssxzjgol84[address] [place] [address]Dr. Farhat Leal LYMPH # 1.5 103/ul Normal 1.2-3.8 [facility] Comment on above: Performed By: #### C BC ####[facility] Eifgfyfkhw23[address] [place] [address]Dr. Farhat Leal Lymphocytes/100 WBC (Bld) 19.7 % Critically low 20.5-60.0 [facility] Comment on above: Performed By: #### C BC ####[facility] Iuhyodvlgj43[address] [place] [address]Dr. Farhat Leal MANUAL DIFF REQ NO Normal [facility] Comment on above: Performed By: #### C BC ####[facility] Amnjktsnra8623 [place] [id number]. Farhat Leal MCH (RBC) [Entitic mass] 31.6 pg Normal 25.9-34.0 [facility] Comment on above: Performed By: #### C BC ####[facility] Uhqzqgwszn3229 [place] [address]Dr. Farhat Leal MCHC (RBC) [Mass/Vol] 33.3 g/dL Normal 29.9-35.2 [facility] Comment on above: Performed By: #### C BC ####[facility] Ummydyrdpq6755 [place] [address]Dr. Farhat Leal MCV (RBC) [Entitic vol] 94.8 fL Critically high 80.0-94.0 [facility] Comment on above: Performed By: #### C BC ####[facility] Urxemyrjpb4690 [place] [address]Dr. Farhat Leal MONO # 1.0 103/ul Critically high 0.3-0.8 [facility] Comment on above: Performed By: #### C BC ####[facility] Yoxdnywiqp0071 [place] [address]Dr. Farhat Leal Monocytes/100 WBC (Bld) 13.0 % Critically high 1.7-12.0 [facility] Comment on above: Performed By: #### C BC ####[facility] Epbifhdzec8441 [place] [address]Dr. Farhat Leal NEUT # 4.9 103/ul Normal 1.4-6.5 [facility] Comment on above: Performed By: #### C BC ####[facility] Olcikaapgv11[address] [place] [address]Dr. Farhat Leal Neutrophils/100 WBC (Bld) 63.3 % Normal 43.0-75.0 [facility] Comment on above: Performed By: #### C BC ####[facility] Hiebobvxst0266 [place] [address]Dr. Farhat Leal Platelet mean volume (Bld) [Entitic vol] 10.7 fL Normal 9.5-13.5 [facility] Comment on above: Performed By: #### C BC ####[facility] Ypiiddeate8644 [place] [address]Dr. Farhat Leal PLT 205 103/ul Normal 150-450 [facility] Comment on above: Performed By: #### C BC ####[facility] Uytiqeshkx6476 [place] [address]Dr. Farhat Leal RBC 4.05 106/ul Critically low 4.70-6.10 [facility] Comment on above: Performed By: #### C BC ####[facility] Cgeyhrxxya6530 [place] [address]Dr. Farhat Leal WBC 7.7 103/ul Normal 4.0-11.0 [facility] Comment on above: Performed By: #### C BC ####[facility] Vejsmljlyy8394 [place] [address]Dr. Farhat Leal PROF CHEM 8 (BAS METB)on Anion gap [Moles/Vol] 15.5 mmol/L Normal [facility] Comment on above: Performed By: #### B MP ####[facility] Ntgenewnvk7288 [place] [address]Dr. Farhat Leal Calcium [Mass/Vol] 9.1 mg/dL Normal 8.5-10.1 [facility] Comment on above: Performed By: #### B MP ####[facility] Pcrwfrnvjo85[address] [place], [place] [address]Dr. Farhat Leal Chloride [Moles/Vol] 92 mmol/L Critically low 98-107 [facility] Comment on above: Performed By: #### B MP ####[facility] Knmveguzwk16[address] [place], [place] [address]Dr. Farhat Leal CO2 [Moles/Vol] 28.5 mmol/L Normal 21.0-32.0 [facility] Comment on above: Performed By: #### B MP ####[facility] Ghhpoawdun8687[address] [place], [place] [address]Dr. Farhat Leal Creatinine [Mass/Vol] 1.84 mg/dL Critically high 0.70-1.30 [facility] Comment on above: Performed By: #### B MP ####[facility] Ewokyxqffr1265[address] [place], [place] [address]Dr. Farhat Leal EGFR-AF JORDANIAN 44 mL/min/1.73m2 Critically low >=60 [facility] Comment on above: Performed By: #### B MP ####[facility] Glewvqptwv7726[address] [place], [place] [address]Dr. Farhat Leal EGFR-NON AF JORDANIAN 36 mL/min/1.73m2 Critically low >=60 [facility] Comment on above: Performed By: #### B MP ####[facility] Qzpefrzkmn0916[address] [place], [place] [address]Dr. Farhat Leal Glucose [Mass/Vol] 267 mg/dL Critically high 74-106 T [facility] Comment on above: Performed By: #### B MP ####[facility] Epgvjhepst3779[address] [place], [place] [address]Dr. Farhat Leal Potassium [Moles/Vol] 5.0 mmol/L Normal 3.5-5.1 [facility] Comment on above: Performed By: #### B MP ####[facility] Hluqgmnuwh364[address] [place], [place] [address]Dr. Madelynlorri Elvis Sodium [Moles/Vol] 131 mmol/L Critically low 136-145 [facility] Comment on above: Performed By: #### B MP ####[facility] Tazdtfhler5684[address] [place], [place] [address]Dr. Madelynlorri Elvis Urea nitrogen [Mass/Vol] 76.0 mg/dL Critically high 7.0-18.0 [facility] Comment on above: Performed By: #### B MP ####[facility] Jimizkjizs2945[address] [place], [place] [address]Dr. Madelynlorri Elvis Urea nitrogen/Creatinine [Mass ratio] 41.3 mg/mg Normal [facility] Comment on above: Performed By: #### B MP ####[facility] Eozryasyrv9[address] [place], [place] [address]Dr. Farhat Elvis PTT HEPARIN MONITORon 2021 aPTT Coag (Bld) [Time] 57.2 s Critically high 39.5-54. 2 [facility] Comment on above: Performed By: #### P TTHEP ####[facility] Stsxitwjvp7[address] [place], [place] [address]Dr. Madelynlorri Elvis aPTT Coag (Bld) [Time] 74.7 s Critically high 39.5-54. 2 [facility] Comment on above: Result Comment: repe ated Performed By: #### P TTHEP ####[facility] Hvyahwbvyj89[address] [place], [place] [address]Dr. Madelynlorri Elvis aPTT Coag (Bld) [Time] 45.5 s Normal 39.5-54.2 [facility] Comment on above: Performed By: #### P TTHEP ####[facility] Hepovluxnf4170 [place] [id number]. Farhat Leal CBC AUTO DIFFon 09-22-2021 BASO # 0.1 103/ul Normal 0.0-0.1 [facility] Comment on above: Performed By: #### C BC ####[facility] Uengerdycx5793 [place] [id number]. Madelynlorri Leal Basophils/100 WBC (Bld) 0.7 % Normal 0.2-2.0 [facility] Comment on above: Performed By: #### C BC ####[facility] Pybiuzoiha8388[address] [place], [place] [address]Dr. Farhat Elvis EO # 0.3 103/ul Normal 0.0-0.7 [facility] Comment on above: Performed By: #### C BC ####[facility] Jvcvihqbta99[address] [place], [place] [address]Dr. Madelynlorri Leal Eosinophils/100 WBC (Bld) 3.2 % Normal 0.9-7.0 [facility] Comment on above: Performed By: #### C BC ####[facility] Nyuzoiuzcd95[address] [place], [place] [address]Dr. Farhat Leal Erythrocyte distribution width (RBC) [Ratio] 12.5 % Normal 11.0-15.0 [facility] Comment on above: Performed By: #### C BC ####[facility] Lujfigvzkx4145[address] [place], [place] [address]Dr. Farhat Leal Hematocrit (Bld) [Volume fraction] 40.5 % Critically low 42.0-54.0 [facility] Comment on above: Performed By: #### C BC ####[facility] Elilojnlux01[address] [place], [place] [address]Dr. Farhat Leal Hemoglobin (Bld) [Mass/Vol] 13.4 g/dL Critically low 14.0-18.0 [facility] Comment on above: Performed By: #### C BC ####[facility] Tgirehwclw[address] [place] [address]Dr. Farhat Leal IG # 0.11 10e3/ul Critically high 0.00-0.03 [facility] Comment on above: Performed By: #### C BC ####[facility] Qgbvlpewyl9195 [place] [address]Dr. Farhat Leal IG % 1.3 % Critically high 0.0-0.5 [facility] Comment on above: Performed By: #### C BC ####[facility] Fmmilxcquu8728 [place] [address]Dr. Farhat Leal LYMPH # 1.7 103/ul Normal 1.2-3.8 [facility] Comment on above: Performed By: #### C BC ####[facility] Bdxeigcrng6385 [place] [address]Dr. Farhat Leal Lymphocytes/100 WBC (Bld) 19.6 % Critically low 20.5-60.0 [facility] Comment on above: Performed By: #### C BC ####[facility] Fvvvlbdlzx5090 [place] [address]Dr. Farhat Leal MANUAL DIFF REQ NO Normal [facility] Comment on above: Performed By: #### C BC ####[facility] Scrokvrpnp2555 [place] [address]Dr. Farhat Leal MCH (RBC) [Entitic mass] 31.1 pg Normal 25.9-34.0 [facility] Comment on above: Performed By: #### C BC ####[facility] Ygcswlufta9886 [place] [address]Dr. Farhat Leal MCHC (RBC) [Mass/Vol] 33.1 g/dL Normal 29.9-35.2 [facility] Comment on above: Performed By: #### C BC ####[facility] Rheqznvjll2605 [place] [address]Dr. Farhat Leal MCV (RBC) [Entitic vol] 94.0 fL Normal 80.0-94.0 [facility] Comment on above: Performed By: #### C BC ####[facility] Fcyqjebjjo2231 [place] [address]Dr. Farhat Leal MONO # 1.1 103/ul Critically high 0.3-0.8 [facility] Comment on above: Performed By: #### C BC ####[facility] Uyksyxpzju4782 [place] [address]Dr. Farhat Leal Monocytes/100 WBC (Bld) 12.7 % Critically high 1.7-12.0 [facility] Comment on above: Performed By: #### C BC ####[facility] Qhymkwgfyp1850 [place] [address]Dr. Farhat Leal NEUT # 5.3 103/ul Normal 1.4-6.5 [facility] Comment on above: Performed By: #### C BC ####[facility] Ifouplwrnd5768 [place] [address]Dr. Farhat Leal Neutrophils/100 WBC (Bld) 62.5 % Normal 43.0-75.0 [facility] Comment on above: Performed By: #### C BC ####[facility] Ssfrdoxwkw6779 [place] [address]DrSkylar Farhat Leal Platelet mean volume (Bld) [Entitic vol] 10.1 fL Normal 9.5-13.5 [facility] Comment on above: Performed By: #### C BC ####[facility] Xnsuclsavq7400 [place] [address]Dr. Farhat Leal PLT 220 103/ul Normal 150-450 [facility] Comment on above: Performed By: #### C BC ####[facility] Qctugubwks7281 [place] [address]Dr. Farhat Leal RBC 4.31 106/ul Critically low 4.70-6.10 [facility] Comment on above: Performed By: #### C BC ####[facility] Agsvrinkzt9178 [place] [address]Dr. Farhat Leal WBC 8.4 103/ul Normal 4.0-11.0 [facility] Comment on above: Performed By: #### C BC ####[facility] Ulhdorxhkg7974 [place] [address]DrSkylar Madelynlorri Leal PROF CHEM 8 (BAS METB)on Anion gap [Moles/Vol] 15.5 mmol/L Normal [facility] Comment on above: Performed By: #### B MP ####[facility] Qcbaewexto5511 [place] [address]Dr. Farhat Leal Calcium [Mass/Vol] 8.9 mg/dL Normal 8.5-10.1 [facility] Comment on above: Performed By: #### B MP ####[facility] Iwdtkyvqpm5451 [place] [address]Dr. Madelynlorri Elvis Chloride [Moles/Vol] 92 mmol/L Critically low 98-107 [facility] Comment on above: Performed By: #### B MP ####[facility] Hyjpylukhe[address] [place], [place] [address]Dr. Madelynlorri Elvis CO2 [Moles/Vol] 25.7 mmol/L Normal 21.0-32.0 [facility] Comment on above: Performed By: #### B MP ####[facility] Xdfbyakgzm490[address] [place], [place] [address]Dr. Madelynlorri Elvis Creatinine [Mass/Vol] 1.85 mg/dL Critically high 0.70-1.30 [facility] Comment on above: Performed By: #### B MP ####[facility] Amlfloecip9178[address] [place], [place] [address]Dr. Madelynlorri Elvis EGFR-AF JORDANIAN 43 mL/min/1.73m2 Critically low >=60 [facility] Comment on above: Performed By: #### B MP ####[facility] Gasutzmxzx6453[address] [place], [place] [address]Dr. Madelynlorri Elvis EGFR-NON AF JORDANIAN 36 mL/min/1.73m2 Critically low >=60 [facility] Comment on above: Performed By: #### B MP ####[facility] Kudyzanoij668[address] [place], [place] [address]Dr. Farhat Leal Glucose [Mass/Vol] 410 mg/dL Critically high 74-106 [facility] Comment on above: Performed By: #### B MP ####[facility] Matemcvzep[address] [place], [place] [id number]. Farhat Leal Potassium [Moles/Vol] 5.2 mmol/L Critically high 3.5-5.1 [facility] Comment on above: Performed By: #### B MP ####[facility] Mqpnezvyqx9[address] [place], [place] [address]Dr. Farhat Elvis Sodium [Moles/Vol] 128 mmol/L Critically low 136-145 [facility] Comment on above: Performed By: #### B MP ####[facility] Rweldouxwq[address] [place], [place] [address]Dr. Farhat Elvis Urea nitrogen [Mass/Vol] 75.0 mg/dL Critically high 7.0-18.0 [facility] Comment on above: Performed By: #### B MP ####[facility] [address]hcifwrrme[address] [place] [address]Dr. Madelynlorri Elvis Urea nitrogen/Creatinine [Mass ratio] 40.5 mg/mg Normal [facility] Comment on above: Performed By: #### B MP ####[facility] Ttlvudzyce[address] [place], [place] [address]Dr. Farhat Elvis PTT HEPARIN MONITORon 2021 aPTT Coag (Bld) [Time] 51.2 s Normal 39.5-54.2 [facility] Comment on above: Performed By: #### P TTHEP ####[facility] Jcgmauqzim[address] [place], [place] [address]Dr. Farhat Elvis aPTT Coag (Bld) [Time] 55.6 s Critically high 39.5-54. 2 [facility] Comment on above: Performed By: #### P TTHEP ####[facility] Swfpjpxnna[address] [place], [place] [address]Dr. Farhat Elvis aPTT Coag (Bld) [Time] 46.1 s Normal 39.5-54.2 [facility] Comment on above: Performed By: #### P TTHEP ####[facility] Msmwbaeqjg86[address] [place], [place] [address]Dr. Madelynlorri Elvis aPTT Coag (Bld) [Time] 53.8 s Normal 39.5-54.2 [facility] Comment on above: Performed By: #### P TTHEP ####[facility] Nohclfalmr44[address] [place] [id number]. Farhat Leal CBC AUTO DIFFon 09-21-2021 BASO # 0.1 103/ul Normal 0.0-0.1 [facility] Comment on above: Performed By: #### C BC ####[facility] Qfwonfwfjk0940 [place] [id number]. Farhat Leal Basophils/100 WBC (Bld) 0.8 % Normal 0.2-2.0 [facility] Comment on above: Performed By: #### C BC ####[facility] Aszusjfgew28[address] [place] [address]Dr. Farhat Leal EO # 0.4 103/ul Normal 0.0-0.7 [facility] Comment on above: Performed By: #### C BC ####[facility] Igbmjxzkmh[address] [place], [place] [address]Dr. Farhat Elvis Eosinophils/100 WBC (Bld) 4.3 % Normal 0.9-7.0 [facility] Comment on above: Performed By: #### C BC ####[facility] Ljvkayaixv[address] [place], [place] [address]Dr. Farhat Leal Erythrocyte distribution width (RBC) [Ratio] 12.5 % Normal 11.0-15.0 [facility] Comment on above: Performed By: #### C BC ####[facility] Wyuvtuxjnl3[address] [place], [place] [address]Dr. Farhat Leal Hematocrit (Bld) [Volume fraction] 40.8 % Critically low 42.0-54.0 [facility] Comment on above: Performed By: #### C BC ####[facility] Teakhojvpm[address] [place], [place] [address]Dr. Farhat Leal Hemoglobin (Bld) [Mass/Vol] 13.5 g/dL Critically low 14.0-18.0 [facility] Comment on above: Performed By: #### C BC ####[facility] Cwcglvoiri[address] [place], [place] [address]Dr. Farhat Leal IG # 0.10 10e3/ul Critically high 0.00-0.03 [facility] Comment on above: Performed By: #### C BC ####[facility] Weocfabmxf9200 [place] [id number] Farhat Elvis IG % 1.2 % Critically high 0.0-0.5 [facility] Comment on above: Performed By: #### C BC ####[facility] Wsoojtpefb1799 [place] [id number] Farhat Elvis LYMPH # 1.3 103/ul Normal 1.2-3.8 [facility] Comment on above: Performed By: #### C BC ####[facility] Vkogywmnqp3427 [place] [id number] Madelynlorri Leal Lymphocytes/100 WBC (Bld) 15.4 % Critically low 20.5-60.0 [facility] Comment on above: Performed By: #### C BC ####[facility] Cfloqipzqw9101 [place] [id number] Madelynolrri Leal MANUAL DIFF REQ NO Normal [facility] Comment on above: Performed By: #### C BC ####[facility] Suzvwpkgaw3117 [place] [id number] Farhat Elvis MCH (RBC) [Entitic mass] 31.0 pg Normal 25.9-34.0 [facility] Comment on above: Performed By: #### C BC ####[facility] Huvnacocdz2367 [place] [id number] Farhat Elvis MCHC (RBC) [Mass/Vol] 33.1 g/dL Normal 29.9-35.2 [facility] Comment on above: Performed By: #### C BC ####[facility] Giqhcuswhx5420 [place] [id number] Farhat Elvis MCV (RBC) [Entitic vol] 93.8 fL Normal 80.0-94.0 [facility] Comment on above: Performed By: #### C BC ####[facility] Uesazxfrby7134 [place] [id number] Leal MONO # 1.2 103/ul Critically high 0.3-0.8 [facility] Comment on above: Performed By: #### C BC ####[facility] Wwdinnkdjq1271 [place] [address]Dr. Farhat Leal Monocytes/100 WBC (Bld) 13.6 % Critically high 1.7-12.0 [facility] Comment on above: Performed By: #### C BC ####[facility] Korngoygxx8918 [place] [address]Dr. Farhat Leal NEUT # 5.5 103/ul Normal 1.4-6.5 [facility] Comment on above: Performed By: #### C BC ####[facility] Cfqkqnzgmp7660 [place] [address]Dr. Farhat Leal Neutrophils/100 WBC (Bld) 64.7 % Normal 43.0-75.0 [facility] Comment on above: Performed By: #### C BC ####[facility] Gjgyetqqxt3662 [place] [address]Dr. Farhat Leal Platelet mean volume (Bld) [Entitic vol] 9.8 fL Normal 9.5-13.5 [facility] Comment on above: Performed By: #### C BC ####[facility] Lzvwvfnrqh3038 [place] [address]Dr. Farhat Leal PLT 206 103/ul Normal 150-450 [facility] Comment on above: Performed By: #### C BC ####[facility] Hqiqwxsbmt1745 [place] [id number]. Farhat Lela RBC 4.35 106/ul Critically low 4.70-6.10 [facility] Comment on above: Performed By: #### C BC ####[facility] Jcnmndodij4574 [place] [address]Dr. Farhat Leal WBC 8.4 103/ul Normal 4.0-11.0 [facility] Comment on above: Performed By: #### C BC ####[facility] Njvatynsjf9154 [place] [id number] Farhat Elvis PROF CHEM 8 (BAS METB)on Anion gap [Moles/Vol] 12.3 mmol/L Normal [facility] Comment on above: Performed By: #### B MP ####[facility] Rciesupaed6861 [place] [address]Dr. Farhat Leal Calcium [Mass/Vol] 8.6 mg/dL Normal 8.5-10.1 [facility] Comment on above: Performed By: #### B MP ####[facility] Gozwkhpzru3958[address] [place], [place] [address]Dr. Madelynlorri Elvis Chloride [Moles/Vol] 94 mmol/L Critically low 98-107 [facility] Comment on above: Performed By: #### B MP ####[facility] Loxklxwhha8[address] [place], [place] [address]Dr. Madelynlorri Elvis CO2 [Moles/Vol] 30.8 mmol/L Normal 21.0-32.0 [facility] Comment on above: Performed By: #### B MP ####[facility] Tnnqgkffud6[address] [place], [place] [address]Dr. Madelynlorri Elvis Creatinine [Mass/Vol] 1.99 mg/dL Critically high 0.70-1.30 [facility] Comment on above: Performed By: #### B MP ####[facility] Uynwruejgw9[address] [place], [place] [address]Dr. Madelynlorri Elvis EGFR-AF JORDANIAN 40 mL/min/1.73m2 Critically low >=60 [facility] Comment on above: Performed By: #### B MP ####[facility] Xhmjvhwikb[address] [place], [place] [address]Dr. Madelynlorri Elvis EGFR-NON AF JORDANIAN 33 mL/min/1.73m2 Critically low >=60 [facility] Comment on above: Performed By: #### B MP ####[facility] Rwgctdkkpy4501[address] [place], [place] [address]Dr. Farhat Leal Glucose [Mass/Vol] 264 mg/dL Critically high 74-106 [facility] Comment on above: Performed By: #### B MP ####[facility] Vetgqqzplj6[address] [place], [place] [address]Dr. Farhat Leal Potassium [Moles/Vol] 5.1 mmol/L Normal 3.5-5.1 [facility] Comment on above: Performed By: #### B MP ####[facility] Joyabsbkot098[address] [place], [place] [address]Dr. Madelynlorri Elvis Sodium [Moles/Vol] 132 mmol/L Critically low 136-145 [facility] Comment on above: Performed By: #### B MP ####[facility] Zditqjrvtx5901[address] [place], [place] [address]Dr. Madelynlorri Elvis Urea nitrogen [Mass/Vol] 72.0 mg/dL Critically high 7.0-18.0 [facility] Comment on above: Performed By: #### B MP ####[facility] Agejfintpj5333[address] [place], [place] [address]Dr. Farhat Leal Urea nitrogen/Creatinine [Mass ratio] 36.2 mg/mg Normal [facility] Comment on above: Performed By: #### B MP ####[facility] Nuaziathrv2429[address] [place], [place] [address]Dr. Farhat Leal PTT HEPARIN MONITORon 2021 aPTT Coag (Bld) [Time] 45.3 s Normal 39.5-54.2 [facility] Comment on above: Performed By: #### P TTHEP ####[facility] Udgtpasrmc12[address] [place], [place] [address]Dr. Madelynlorri Elvis aPTT Coag (Bld) [Time] 68.0 s Critically high 39.5-54. 2 [facility] Comment on above: Performed By: #### P TTHEP ####[facility] Pwzycywexx6059[address] [place], [place] [address]Dr. Madelynlorri Elvis aPTT Coag (Bld) [Time] 69.4 s Critically high 39.5-54. 2 [facility] Comment on above: Performed By: #### P TTHEP ####[facility] Zgynnzksyl9203[address] [place], [place] [address]Dr. Farhat Leal aPTT Coag (Bld) [Time] 53.5 s Normal 39.5-54.2 [facility] Comment on above: Performed By: #### P TTHEP ####[facility] Xkpiydbiyr9462 [place] [address]Dr. Farhat Leal aPTT Coag (Bld) [Time] 126.9 s Critically high 39.5-54. 2 [facility] Comment on above: Performed By: #### P TTHEP ####[facility] Wrwcznxnke0280[address] [place], [place] [address]Dr. Farhat Elvis CBC AUTO DIFFon 09-20-2021 BASO # 0.1 103/ul Normal 0.0-0.1 [facility] Comment on above: Performed By: #### C BC ####[facility] Hphkaewthf3217[address] [place], [place] [address]Dr. Farhat Leal Basophils/100 WBC (Bld) 0.7 % Normal 0.2-2.0 [facility] Comment on above: Performed By: #### C BC ####[facility] Wmltcivgey9[address] [place], [place] [address]Dr. Farhat Leal EO # 0.2 103/ul Normal 0.0-0.7 [facility] Comment on above: Performed By: #### C BC ####[facility] Lnlmuzcjnt2165[address] [place], [place] [address]Dr. Madelynlorri Leal Eosinophils/100 WBC (Bld) 3.2 % Normal 0.9-7.0 [facility] Comment on above: Performed By: #### C BC ####[facility] Gikfypsjgx7[address] [place], [place] [address]Dr. Madelynlorri Leal Erythrocyte distribution width (RBC) [Ratio] 12.4 % Normal 11.0-15.0 [facility] Comment on above: Performed By: #### C BC ####[facility] Upeievouxg[address] [place], [place] [address]Dr. Farhat Leal Hematocrit (Bld) [Volume fraction] 40.1 % Critically low 42.0-54.0 [facility] Comment on above: Performed By: #### C BC ####[facility] Ljvzbpsdnj4[address] [place], [place] [address]Dr. Madelynlorri Leal Hemoglobin (Bld) [Mass/Vol] 13.4 g/dL Critically low 14.0-18.0 [facility] Comment on above: Performed By: #### C BC ####[facility] Zliotvciqm3284 [place] [address]DrSkylar Leal IG # 0.08 10e3/ul Critically high 0.00-0.03 [facility] Comment on above: Performed By: #### C BC ####[facility] Ybqeputijv3919 [place] [address]DrSkylar Leal IG % 1.1 % Critically high 0.0-0.5 [facility] Comment on above: Performed By: #### C BC ####[facility] Yemfssmnqp9111 [place] [address]DrSkylar Leal LYMPH # 1.3 103/ul Normal 1.2-3.8 [facility] Comment on above: Performed By: #### C BC ####[facility] Jccdhfslzy5602 [place] [address]DrSkylar Leal Lymphocytes/100 WBC (Bld) 17.3 % Critically low 20.5-60.0 [facility] Comment on above: Performed By: #### C BC ####[facility] Ayfltlxysj0181 [place] [address]DrSkylar Leal MANUAL DIFF REQ NO Normal [facility] Comment on above: Performed By: #### C BC ####[facility] Eptsszpnbu5180 [place] [address]DrSkylar Leal MCH (RBC) [Entitic mass] 31.2 pg Normal 25.9-34.0 [facility] Comment on above: Performed By: #### C BC ####[facility] Qsuyqbpvoe1156 [place] [address]DrSkylar Leal MCHC (RBC) [Mass/Vol] 33.4 g/dL Normal 29.9-35.2 [facility] Comment on above: Performed By: #### C BC ####[facility] Gxbipqykbi9410 [place] [address]DrSkylar Leal MCV (RBC) [Entitic vol] 93.3 fL Normal 80.0-94.0 [facility] Comment on above: Performed By: #### C BC ####[facility] Vdizuwracw9591 [place] [address]DrSkylar Farhat Leal MONO # 0.9 103/ul Critically high 0.3-0.8 [facility] Comment on above: Performed By: #### C BC ####[facility] Xnmzylqsvr2488 [place] [address]DrSkylar Madelynlorri Leal Monocytes/100 WBC (Bld) 12.4 % Critically high 1.7-12.0 [facility] Comment on above: Performed By: #### C BC ####[facility] Wqnlputhrb95[address] [place], [place] [address]Dr. Farhat Leal NEUT # 4.7 103/ul Normal 1.4-6.5 [facility] Comment on above: Performed By: #### C BC ####[facility] Jjgjpjaphx[address] [place], [place] [address]Dr. Farhat Leal Neutrophils/100 WBC (Bld) 65.3 % Normal 43.0-75.0 [facility] Comment on above: Performed By: #### C BC ####[facility] Slkxphqvdm6790[address] [place], [place] [address]DrSkylar Farhat Elvis Platelet mean volume (Bld) [Entitic vol] 9.9 fL Normal 9.5-13.5 [facility] Comment on above: Performed By: #### C BC ####[facility] Byffxmdstq0221 [place] [address]Dr. Farhat Elvis PLT 180 103/ul Normal 150-450 [facility] Comment on above: Performed By: #### C BC ####[facility] Ydjtfzrcbt3753 [place] [id number] Leal RBC 4.30 106/ul Critically low 4.70-6.10 [facility] Comment on above: Performed By: #### C BC ####[facility] Jatmpqsukb1155 [place] [address]DrSkylar Leal WBC 7.2 103/ul Normal 4.0-11.0 [facility] Comment on above: Performed By: #### C BC ####[facility] Rmgdstpalu7429[address] [place], [place] [address]Dr. Madelynlorri Leal PTT HEPARIN MONITORon 2021 aPTT Coag (Bld) [Time] 26.7 s Critically low 39.5-54.2 [facility] Comment on above: Performed By: #### P TTHEP ####[facility] Shhakciqkl4532[address] [place], [place] [address]Dr. Madelynlorri Leal aPTT Coag (Bld) [Time] 121.0 s Critically high 39.5-54. 2 [facility] Comment on above: Performed By: #### P TTHEP ####[facility] Yussytzebj6350[address] [place], [place] [address]Dr. Farhat Leal aPTT Coag (Bld) [Time] 27.6 s Critically low 39.5-54.2 [facility] Comment on above: Performed By: #### P TTHEP ####[facility] Qcanldiyue8560[address] [place], [place] [address]Dr. Madelynlorri Leal aPTT Coag (Bld) [Time] 139.0 s Critically high 39.5-54. 2 [facility] Comment on above: Performed By: #### P TTHEP ####[facility] Gynxgrcqen9644[address] [place], [place] [address]Dr. Farhat Leal CBC AUTO DIFFon 09-19-2021 BASO # 0.0 103/ul Normal 0.0-0.1 [facility] Comment on above: Performed By: #### C BC ####[facility] Zbqhgfotws350[address] [place], [place] [address]Dr. Farhat Leal Basophils/100 WBC (Bld) 0.5 % Normal 0.2-2.0 [facility] Comment on above: Performed By: #### C BC ####[facility] Eyqwofruhp2154[address] [place], [place] [address]Dr. Farhat Leal EO # 0.2 103/ul Normal 0.0-0.7 [facility] Comment on above: Performed By: #### C BC ####[facility] Hnxfqrljho8028 [place] [address]Dr. Farhat Leal Eosinophils/100 WBC (Bld) 2.6 % Normal 0.9-7.0 [facility] Comment on above: Performed By: #### C BC ####[facility] Hkvxzsaqvr0163 [place] [address]Dr. Farhat Leal Erythrocyte distribution width (RBC) [Ratio] 12.5 % Normal 11.0-15.0 [facility] Comment on above: Performed By: #### C BC ####[facility] Gtzmqsspvv7225 [place] [address]Dr. Farhat Leal Hematocrit (Bld) [Volume fraction] 39.2 % Critically low 42.0-54.0 [facility] Comment on above: Performed By: #### C BC ####[facility] Opqqylzrbt7[address] [place], [place] [address]Dr. Farhat Leal Hemoglobin (Bld) [Mass/Vol] 13.3 g/dL Critically low 14.0-18.0 [facility] Comment on above: Performed By: #### C BC ####[facility] Wanmmhanvw[address] [place], [place] [address]Dr. Farhat Leal IG # 0.08 10e3/ul Critically high 0.00-0.03 [facility] Comment on above: Performed By: #### C BC ####[facility] Ijuhmtlmzn7467 [place] [address]Dr. Farhat Leal IG % 0.9 % Critically high 0.0-0.5 [facility] Comment on above: Performed By: #### C BC ####[facility] Joagwowgwm8250 [place] [address]Dr. Farhat Leal LYMPH # 1.5 103/ul Normal 1.2-3.8 [facility] Comment on above: Performed By: #### C BC ####[facility] Bgcclhjtzp09[address] [place], [place] [address]Dr. Farhat Leal Lymphocytes/100 WBC (Bld) 17.2 % Critically low 20.5-60.0 [facility] Comment on above: Performed By: #### C BC ####[facility] Pvdndceiws7091 [place] [id number]. Farhat Leal MANUAL DIFF REQ NO Normal [facility] Comment on above: Performed By: #### C BC ####[facility] Vuulmawitv9111 [place] [address]Dr. Farhat Leal MCH (RBC) [Entitic mass] 31.7 pg Normal 25.9-34.0 [facility] Comment on above: Performed By: #### C BC ####[facility] Waodzhkcbn0403 [place] [address]Dr. Farhat Leal MCHC (RBC) [Mass/Vol] 33.9 g/dL Normal 29.9-35.2 [facility] Comment on above: Performed By: #### C BC ####[facility] Tqndlauipc[address] [place], [place] [address]Dr. Farhat Leal MCV (RBC) [Entitic vol] 93.3 fL Normal 80.0-94.0 [facility] Comment on above: Performed By: #### C BC ####[facility] Vgfnouvzts4[address] [place], [place] [address]Dr. Farhat Leal MONO # 1.2 103/ul Critically high 0.3-0.8 [facility] Comment on above: Performed By: #### C BC ####[facility] Rrveyldesx9694 [place] [address]Dr. Farhat Leal Monocytes/100 WBC (Bld) 13.7 % Critically high 1.7-12.0 [facility] Comment on above: Performed By: #### C BC ####[facility] Yflteikzyu9030 [place] [address]Dr. Farhat Leal NEUT # 5.5 103/ul Normal 1.4-6.5 [facility] Comment on above: Performed By: #### C BC ####[facility] Wfmeonhogr2048 [place] [address]Dr. Farhat Leal Neutrophils/100 WBC (Bld) 65.1 % Normal 43.0-75.0 [facility] Comment on above: Performed By: #### C BC ####[facility] Zktglpangx2024 [place] [address]Dr. Farhat Leal Platelet mean volume (Bld) [Entitic vol] 9.6 fL Normal 9.5-13.5 [facility] Comment on above: Performed By: #### C BC ####[facility] Mhdjatfxvj6901 [place] [address]Dr. Farhat Leal PLT 163 103/ul Normal 150-450 [facility] Comment on above: Performed By: #### C BC ####[facility] Fuappngarm0491 [place] [address]Dr. Farhat Leal RBC 4.20 106/ul Critically low 4.70-6.10 [facility] Comment on above: Performed By: #### C BC ####[facility] Dquqfoyqyt79[address] [place], [place] [address]Dr. Farhat Leal WBC 8.4 103/ul Normal 4.0-11.0 [facility] Comment on above: Performed By: #### C BC ####[facility] Kdgblrrfxz7865[address] [place], [place] [address]Dr. Farhat Leal POINT OF CARE GLUCOSEon Glucose [Mass/Vol] 300 mg/dL Critically high 74-106 [facility] Comment on above: Performed By: #### P OCGLUC ####[facility] Zbivkltqic68[address] [place], [place] [address]Dr. Farhat Leal POTASSIUMon 09-19-2021 Potassium [Moles/Vol] 4.9 mmol/L Normal 3.5-5.1 [facility] Comment on above: Performed By: #### K ####[facility] Tciuzhlyyv254[address] [place], [place] [address]DrSkylar Farhat Leal PTT HEPARIN MONITORon 2021 aPTT Coag (Bld) [Time] 23.4 s Critically low 39.5-54.2 [facility] Comment on above: Result Comment: repe ated Performed By: #### P TTHEP ####[facility] Mlhajuotaj6[address] [place], [place] [address]Dr. Farhat Elvis aPTT Coag (Bld) [Time] 101.2 s Critically high 39.5-54. 2 [facility] Comment on above: Performed By: #### P TTHEP ####[facility] Dsztyqhmtp5809[address] [place], [place] [address]Dr. Farhat Elvis aPTT Coag (Bld) [Time] 81.0 s Critically high 39.5-54. 2 [facility] Comment on above: Result Comment: Test Repeated. Critical Value Verified Performed By: #### P TTHEP ####[facility] Pmdezgonml6779[address] [place], [place] [address]Dr. Madelynlorri Leal CBC AUTO DIFFon 09-18-2021 BASO # 0.0 103/ul Normal 0.0-0.1 [facility] Comment on above: Performed By: #### C BC ####[facility] Jpeubxozmf010[address] [place], [place] [address]Dr. Farhat Leal Basophils/100 WBC (Bld) 0.4 % Normal 0.2-2.0 [facility] Comment on above: Performed By: #### C BC ####[facility] Nrtktyxucy7764[address] [place], [place] [address]DrSkylar Leal EO # 0.1 103/ul Normal 0.0-0.7 [facility] Comment on above: Performed By: #### C BC ####[facility] Wqucotcczw6539[address] [place], [place] [address]Dr. Farhat Leal Eosinophils/100 WBC (Bld) 0.8 % Critically low 0.9-7.0 [facility] Comment on above: Performed By: #### C BC ####[facility] Fqkikiysww9[address] [place], [place] [address]Dr. Farhat Leal Erythrocyte distribution width (RBC) [Ratio] 12.4 % Normal 11.0-15.0 [facility] Comment on above: Performed By: #### C BC ####[facility] Darcdmsfuy006[address] [place], [place] [address]DrSkylar Leal Hematocrit (Bld) [Volume fraction] 41.7 % Critically low 42.0-54.0 [facility] Comment on above: Performed By: #### C BC ####[facility] Ldnqxusfuw9710 [place] [address]DrSkylar Leal Hemoglobin (Bld) [Mass/Vol] 14.1 g/dL Normal 14.0-18.0 [facility] Comment on above: Performed By: #### C BC ####[facility] Icrfpcfnzz2133 [place] [address]DrSkylar Leal IG # 0.06 10e3/ul Critically high 0.00-0.03 [facility] Comment on above: Performed By: #### C BC ####[facility] Aomtjuucfy30[address] [place] [address]DrSkylar Leal IG % 0.6 % Critically high 0.0-0.5 [facility] Comment on above: Performed By: #### C BC ####[facility] Y[address] [place], [place] [address]DrSkylar Leal LYMPH # 0.6 103/ul Critically low 1.2-3.8 [facility] Comment on above: Performed By: #### C BC ####[facility] Ymwrtdiiam1[address] [place], [place] [address]DrSkylar Leal Lymphocytes/100 WBC (Bld) 6.5 % Critically low 20.5-60.0 [facility] Comment on above: Performed By: #### C BC ####[facility] Tyxwzifgcu99[address] [place] [address]DrSkylar Leal MANUAL DIFF REQ NO Normal [facility] Comment on above: Performed By: #### C BC ####[facility] Lajonstfoo6909 [place] [address]DrSkylar Leal MCH (RBC) [Entitic mass] 31.6 pg Normal 25.9-34.0 [facility] Comment on above: Performed By: #### C BC ####[facility] Gggwgwptjs7118 [place] [address]DrSkylar Leal MCHC (RBC) [Mass/Vol] 33.8 g/dL Normal 29.9-35.2 The [facility] Comment on above: Performed By: #### C BC ####[facility] Eijpatqztm5252 [place] [address]DrSkylar Leal MCV (RBC) [Entitic vol] 93.5 fL Normal 80.0-94.0 The [facility] Comment on above: Performed By: #### C BC ####[facility] Vubgekdvpl6921 [place] [address]DrSkylar Leal MONO # 1.0 103/ul Critically high 0.3-0.8 [facility] Comment on above: Performed By: #### C BC ####[facility] Vrzpyenphj[address] [place], [place] [address]DrSkylar Leal Monocytes/100 WBC (Bld) 10.4 % Normal 1.7-12.0 The [facility] Comment on above: Performed By: #### C BC ####[facility] Zlzdulxken[address] [place], [place] [address]Dr. Farhat Leal NEUT # 7.8 103/ul Critically high 1.4-6.5 [facility] Comment on above: Performed By: #### C BC ####[facility] Plxgjfloyx[address] [place], [place] [address]DrSkylar Leal Neutrophils/100 WBC (Bld) 81.3 % Critically high 43.0-75.0 The [facility] Comment on above: Performed By: #### C BC ####[facility] Rhtauaqkhm10[address] [place], [place] [address]Dr. Farhat Leal Platelet mean volume (Bld) [Entitic vol] 9.9 fL Normal 9.5-13.5 The [facility] Comment on above: Performed By: #### C BC ####[facility] Kswkcpfqgn[address] [place], [place] [id number]. Farhat Leal PLT 169 103/ul Normal 150-450 The [facility] Comment on above: Performed By: #### C BC ####[facility] Fqjrrxsfbj[address] [place], [place] [id number] Leal RBC 4.46 106/ul Critically low 4.70-6.10 [facility] Comment on above: Performed By: #### C BC ####[facility] Ljkqdrsgab8094 [place] [address]Dr. Farhat Leal WBC 9.6 103/ul Normal 4.0-11.0 The [facility] Comment on above: Performed By: #### C BC ####[facility] Vhtnlsgfsl2878 [place] [address]Dr. Farhat Leal BASO # 0.0 103/ul Normal 0.0-0.1 The [facility] Comment on above: Performed By: #### C BC ####[facility] Adgpcfruzs09[address] [place], [place] [address]Dr. Farhat Leal Basophils/100 WBC (Bld) 0.4 % Normal 0.2-2.0 The [facility] Comment on above: Performed By: #### C BC ####[facility] Vigxifvriw9064[address] [place], [place] [address]Dr. Farhat Leal EO # 0.1 103/ul Normal 0.0-0.7 The [facility] Comment on above: Performed By: #### C BC ####[facility] Mkmkqkiynr11[address] [place], [place] [address]Dr. Farhat Leal Eosinophils/100 WBC (Bld) 1.1 % Normal 0.9-7.0 The [facility] Comment on above: Performed By: #### C BC ####[facility] Zydbbsusmd0912[address] [place], [place] [address]Dr. Farhat Leal Erythrocyte distribution width (RBC) [Ratio] 12.6 % Normal 11.0-15.0 The [facility] Comment on above: Performed By: #### C BC ####[facility] Vmzwhacgjp26[address] [place], [place] [address]Dr. Farhat Leal Hematocrit (Bld) [Volume fraction] 40.8 % Critically low 42.0-54.0 The [facility] Comment on above: Performed By: #### C BC ####[facility] Erdacmuiwb1957[address] [place], [place] [address]Dr. Farhat Elvis Hemoglobin (Bld) [Mass/Vol] 13.6 g/dL Critically low 14.0-18.0 The [facility] Comment on above: Performed By: #### C BC ####[facility] Vbhrrtqsys8196 [place] [address]DrSkylar Leal IG # 0.08 10e3/ul Critically high 0.00-0.03 [facility] Comment on above: Performed By: #### C BC ####[facility] Ussaagcjsr0585 [place] [address]DrSkylar Leal IG % 0.9 % Critically high 0.0-0.5 [facility] Comment on above: Performed By: #### C BC ####[facility] Hzbsuhbsdm6415[address] [place], [place] [address]DrSkylar Leal LYMPH # 0.8 103/ul Critically low 1.2-3.8 [facility] Comment on above: Performed By: #### C BC ####[facility] Nsavfcxqid4814[address] [place], [place] [address]DrSkylar Leal Lymphocytes/100 WBC (Bld) 8.7 % Critically low 20.5-60.0 [facility] Comment on above: Performed By: #### C BC ####[facility] Vnwmsnbdtu95[address] [place], [place] [address]DrSkylar Leal MANUAL DIFF REQ NO Normal [facility] Comment on above: Performed By: #### C BC ####[facility] Fjsfxxacuq1133[address] [place], [place] [address]DrSkylar Leal MCH (RBC) [Entitic mass] 31.6 pg Normal 25.9-34.0 The [facility] Comment on above: Performed By: #### C BC ####[facility] Lmrgsxqqwq5017[address] [place], [place] [address]DrSkylar Leal MCHC (RBC) [Mass/Vol] 33.3 g/dL Normal 29.9-35.2 The [facility] Comment on above: Performed By: #### C BC ####[facility] Cmiihyavew4406[address] [place], [place] [address]DrSkylar Leal MCV (RBC) [Entitic vol] 94.9 fL Critically high 80.0-94.0 The [facility] Comment on above: Performed By: #### C BC ####[facility] Agpssuuwzb4333 [place] [address]DrSkylar Farhat Leal MONO # 1.0 103/ul Critically high 0.3-0.8 [facility] Comment on above: Performed By: #### C BC ####[facility] Rrsaizymih0127[address] [place], [place] [address]Dr. Farhat Leal Monocytes/100 WBC (Bld) 11.3 % Normal 1.7-12.0 The [facility] Comment on above: Performed By: #### C BC ####[facility] Blcsbjwemn[address] [place], [place] [address]DrSkylar Joshilorri Leal NEUT # 6.9 103/ul Critically high 1.4-6.5 [facility] Comment on above: Performed By: #### C BC ####[facility] Rupwnntpck85[address] [place], [place] [address]Dr. Farhat Leal Neutrophils/100 WBC (Bld) 77.6 % Critically high 43.0-75.0 The [facility] Comment on above: Performed By: #### C BC ####[facility] Flyossrkgm470[address] [place], [place] [address]Dr. Farhat Leal Platelet mean volume (Bld) [Entitic vol] 9.7 fL Normal 9.5-13.5 The [facility] Comment on above: Performed By: #### C BC ####[facility] Bnvyhggzfp01[address] [place], [place] [address]Dr. Farhat Leal PLT 171 103/ul Normal 150-450 The [facility] Comment on above: Performed By: #### C BC ####[facility] Gzknbvreuy5[address] [place], [place] [address]DrSkylar Leal RBC 4.30 106/ul Critically low 4.70-6.10 [facility] Comment on above: Performed By: #### C BC ####[facility] Mxyymusmla12[address] [place], [place] [address]Dr. Farhat Leal WBC 8.9 103/ul Normal 4.0-11.0 [facility] Comment on above: Performed By: #### C BC ####[facility] [address]jrgqbg25[address] [place] [address]Dr. Farhat Elvis Covid-19 PCR (CVDTB)on SARS-CoV-2 (COVID-19) RNA JOSH+probe Ql (Unsp spec) Not detected Normal NOT DETECTED The [facility] Comment on above: Result Comment: When [...] for this test is supported by the Gang [employer] of Health and Human Service's declaration that [...] be used). Performed By: #### C VDTB ####[facility] [address]ymrwmhjou[address] [place] [address]Dr. Farhat Leal PROF 14(COMP METB)on 022 Albumin [Mass/Vol] 2.6 g/dL Critically low 3.4-5.0 Th e [facility] Comment on above: Performed By: #### C MP ####[facility] Wfwwkilnja4246 [place] [address]Dr. Farhat Leal Albumin/Globulin [Mass ratio] 0.7 {ratio} Normal [facility] Comment on above: Performed By: #### C MP ####[facility] X[address]yrbwdzx9915 [place] [id number]. Farhat Leal ALP [Catalytic activity/Vol] 88 U/L Normal 46-116 [facility] Comment on above: Performed By: #### C MP ####[facility] Mwlzvvojhn8367 [place] [address]Dr. Farhat Leal ALT [Catalytic activity/Vol] 15 U/L Critically low 16-63 [facility] Comment on above: Performed By: #### C MP ####[facility] Eycewzjiqo8883 [place] [address]Dr. Farhat Leal Anion gap [Moles/Vol] 11.7 mmol/L Normal Th [facility] Comment on above: Performed By: #### C MP ####[facility] Txxartxluq4076 [place] [address]Dr. Farhat Elvis AST [Catalytic activity/Vol] 25 U/L Normal 15-37 [facility] Comment on above: Performed By: #### C MP ####[facility] Dhgbupivwy0598 [place] [address]Dr. Farhat Elvis Bilirubin [Mass/Vol] 0.6 mg/dL Normal 0.2-1.0 [facility] Comment on above: Performed By: #### C MP ####[facility] Ocwixyzlmk0390 [place] [address]Dr. Farhat Elvis Calcium [Mass/Vol] 8.9 mg/dL Normal 8.5-10.1 [facility] Comment on above: Performed By: #### C MP ####[facility] Eigpgyinap7562 [place] [address]Dr. Farhat Elvis Chloride [Moles/Vol] 93 mmol/L Critically low 98-107 [facility] Comment on above: Performed By: #### C MP ####[facility] Hrkwtjhhzt9382 [place] [address]Dr. Farhat Leal CO2 [Moles/Vol] 28.9 mmol/L Normal 21.0-32.0 [facility] Comment on above: Performed By: #### C MP ####[facility] Qddrtqbdga2361 [place] [address]Dr. Madelynlorri Leal Creatinine [Mass/Vol] 2.09 mg/dL Critically high 0.70-1.30 [facility] Comment on above: Performed By: #### C MP ####[facility] Hnzoorzcdz2944 [place] [address]Dr. Farhat Elvis EGFR-AF JORDANIAN 38 mL/min/1.73m2 Critically low >=60 [facility] Comment on above: Performed By: #### C MP ####[facility] Uruhgybhqs7650 [place] [address]Dr. Farhat Elvis EGFR-NON AF JORDANIAN 31 mL/min/1.73m2 Critically low >=60 [facility] Comment on above: Performed By: #### C MP ####[facility] Tyoxoffutf5133 [place] [address]Dr. Farhat Leal Globulin (S) [Mass/Vol] 3.7 g/dL Normal [facility] Comment on above: Performed By: #### C MP ####[facility] Vdnjikmpcu4272 [place] [address]Dr. Farhat Leal Glucose [Mass/Vol] 214 mg/dL Critically high 74-106 T [facility] Comment on above: Performed By: #### C MP ####[facility] Bdhjhijnpo9615 [place] [address]Dr. Farhat Leal Potassium [Moles/Vol] 5.6 mmol/L Critically high 3.5-5.1 [facility] Comment on above: Performed By: #### C MP ####[facility] Mahzxncwxf8213 [place] [address]Dr. Farhat Leal Protein [Mass/Vol] 6.3 g/dL Critically low 6.4-8.2 [facility] Comment on above: Performed By: #### C MP ####[facility] Ntyibpobav8205 [place] [address]Dr. Farhat Leal Sodium [Moles/Vol] 128 mmol/L Critically low 136-145 Th [facility] Comment on above: Performed By: #### C MP ####[facility] Tckhejudbe9556 [place] [address]Dr. Farhat Leal Urea nitrogen [Mass/Vol] 65.0 mg/dL Critically high 7.0-18.0 [facility] Comment on above: Performed By: #### C MP ####[facility] Odrgsttjvb8196 [place] [address]Dr. Farhat Leal Urea nitrogen/Creatinine [Mass ratio] 31.1 mg/mg Normal [facility] Comment on above: Performed By: #### C MP ####[facility] Ophhmwsvae7553 [place] [address]Dr. Farhat Leal Albumin [Mass/Vol] 2.5 g/dL Critically low 3.4-5.0 Th e [facility] Comment on above: Performed By: #### T MYRIAM, CMP ####[facility] Sokjmpaxta6058 [place] [address]Dr. Farhat Leal Albumin/Globulin [Mass ratio] 0.7 {ratio} Normal [facility] Comment on above: Performed By: #### T MYRIAM, CMP ####[facility] K[address]qvxx[address] [place], [place] [address]Dr. Farhat Leal ALP [Catalytic activity/Vol] 83 U/L Normal 46-116 [facility] Comment on above: Performed By: #### T MYRIAM, CMP ####[facility] Gzidvjrzja5[address] [place], [place] [address]Dr. Farhat Leal ALT [Catalytic activity/Vol] 16 U/L Normal 16-63 [facility] Comment on above: Performed By: #### T MYRIAM, CMP ####[facility] Lrfqezcbew8[address] [place], [place] [address]Dr. Farhat Leal Anion gap [Moles/Vol] 9.7 mmol/L Normal [facility] Comment on above: Performed By: #### T MYRIAM, CMP ####[facility] Dhlfwujydx118[address] [place], [place] [address]Dr. Farhat Leal AST [Catalytic activity/Vol] 27 U/L Normal 15-37 [facility] Comment on above: Performed By: #### T SH, CMP ####[facility] Lplmabnxiu537[address] [place], [place] [address]Dr. Farhat Leal Bilirubin [Mass/Vol] 0.5 mg/dL Normal 0.2-1.0 [facility] Comment on above: Performed By: #### T SH, CMP ####[facility] Owldttfogr5141 [place] [address]Dr. Farhat Leal Calcium [Mass/Vol] 8.8 mg/dL Normal 8.5-10.1 [facility] Comment on above: Performed By: #### T SH, CMP ####[facility] Kwzuiovryh59[address] [place], [place] [address]Dr. Farhat Leal Chloride [Moles/Vol] 95 mmol/L Critically low 98-107 The [facility] Comment on above: Performed By: #### T SH, CMP ####[facility] Hlkiqvzahf4[address] [place], [place] [address]Dr. Farhat Leal CO2 [Moles/Vol] 30.5 mmol/L Normal 21.0-32.0 [facility] Comment on above: Performed By: #### T SH, CMP ####[facility] Dikqtfjclc75[address] [place], [place] [address]Dr. Farhat Leal Creatinine [Mass/Vol] 2.18 mg/dL Critically high 0.70-1.30 [facility] Comment on above: Performed By: #### T SH, CMP ####[facility] Rzioptqxlb172[address] [place], [place] [address]Dr. Farhat Leal EGFR-AF JORDANIAN 36 mL/min/1.73m2 Critically low >=60 [facility] Comment on above: Performed By: #### T SH, CMP ####[facility] Mivgxdgdrl288[address] [place], [place] [address]Dr. Farhat Leal EGFR-NON AF JORDANIAN 30 mL/min/1.73m2 Critically low >=60 The [facility] Comment on above: Performed By: #### T SH, CMP ####[facility] Fvxmzvyrhv[address] [place], [place] [address]Dr. Farhat Leal Globulin (S) [Mass/Vol] 3.5 g/dL Normal [facility] Comment on above: Performed By: #### T SH, CMP ####[facility] Fvjmpkqkac6[address] [place], [place] [address]Dr. Farhat Leal Glucose [Mass/Vol] 141 mg/dL Critically high 74-106 T [facility] Comment on above: Performed By: #### T SH, CMP ####[facility] Qhkkswwuvw7626[address] [place], [place] [address]Dr. Farhat Leal Potassium [Moles/Vol] 5.2 mmol/L Critically high 3.5-5.1 [facility] Comment on above: Performed By: #### T SH, CMP ####[facility] Ubqtzpwsgl1049[address] [place], [place] [address]Dr. Farhat Leal Protein [Mass/Vol] 6.0 g/dL Critically low 6.4-8.2 Th [facility] Comment on above: Performed By: #### T MYRIAM, CMP ####[facility] Ifmrsrxzak35[address] [place], [place] [address]Dr. Farhat Leal Sodium [Moles/Vol] 130 mmol/L Critically low 136-145 Th [facility] Comment on above: Performed By: #### T MYRIAM, CMP ####[facility] Wmksvedmfm[address] [place], [place] [address]Dr. Farhat Leal Urea nitrogen [Mass/Vol] 63.0 mg/dL Critically high 7.0-18.0 [facility] Comment on above: Performed By: #### T MYRIAM, CMP ####[facility] Cjpduobxij4[address] [place], [place] [address]Dr. Farhat Leal Urea nitrogen/Creatinine [Mass ratio] 28.9 mg/mg Normal [facility] Comment on above: Performed By: #### T MYRIAM, CMP ####[facility] Nkpibtqqsc[address] [place], [place] [address]Dr. Farhat Leal PROTIMEon 09-18-2021 INR Coag (PPP) [Relative time] 1.06 {INR} Normal [facility] Comment on above: Performed By: #### P T, PTT ####[facility] Rioheirogh[address] [place], [place] [address]Dr. Farhat Leal INR GUIDELINES SEE BELOW Normal [facility] Comment on above: Result Comment: MALINA RED INR: 2.0 - 3.0 CONDITIONS NOT LISTED BELOW 2.5 - 3.5 FOR PROSTHETIC HEART VALVE REPLACEMENT 2.5 - 3.5 RECURRENT THROMBOSIS Performed By: #### P T, PTT ####[facility] Ptechcvujn6384 [place] [address]Dr. Farhat Leal PT Coag (PPP) [Time] 11.4 s Normal 9.0-11.6 [facility] Comment on above: Performed By: #### P T, PTT ####[facility] Iwdsjzywzu9836 [place] [address]Dr. Farhat Leal PTTon 09-18-2021 aPTT Coag (Bld) [Time] 27.9 s Normal 22.3-36.2 [facility] Comment on above: Performed By: #### P T, PTT ####[facility] Qcczbutbfk8149 [place] [address]Dr. Farhat Leal TSHon 09-18-2021 TSH 7.099 uIU/mL Critically high 0.358-3.740 [facility] Comment on above: Performed By: #### T SH, CMP ####[facility] Hnwwehwbfj[address] [place], [place] [address]Dr. Farhat Leal US SALOME DOP LEG RTon 09-19-19 22 US SALOME DOP LEG RT Normal [facility] XR CHEST 1 Von 09-18-2021 XR CHEST 1 V Normal [facility] XR HIP RT 2 3V W PELVISon XR HIP RT 2 3V W PELVIS Normal [facility] Vital Signs Date Time Vital Sign Value Performing Clinician Facility 03-18-2023 13:37-0500 Body temperature 98.01 [degF] [place] [employer] Work Phone: [facility] 03-18-2023 13:37-0500 Diastolic blood pressure 64 mm[Hg] [place] [employer] Work Phone: [facility] 03-18-2023 13:37-0500 Heart rate 72 /min [place] [employer] Work Phone: [facility] 03-18-2023 13:37-0500 SaO2% (BldA) [Mass fraction] 98 % [place] [employer] Work Phone: [facility] 03-18-2023 13:37-0500 Systolic blood pressure 118 mm[Hg] Ni Cabrera DO Work Phone: [facility] 07-20-2022 13:35-0400 Body temperature 97.4 [degF] DO Devon Ball Work Phone: [facility] 07-20-2022 13:35-0400 Diastolic blood pressure 50 mm[Hg] DO Devon Ball Work Phone: [facility] 07-20-2022 13:35-0400 Heart rate 67 /min DO Devon Ball Work Phone: [facility] 07-20-2022 13:35-0400 Respiratory rate 20 /min DO Devon Ball Work Phone: [facility] 07-20-2022 13:35-0400 Systolic blood pressure 98 mm[Hg] DO Devon Ball Work Phone: [facility] 06-29-2022 14:46-0400 Body height 193.04 cm DO Devon Ball Work Phone: [facility] 02-26-2022 13:11-0500 Body temperature 96.6 [degF] Hina [...] Diastolic blood pressure 54 mm[Hg] Alissa Major [employer] Work Phone: [facility] 01-12-2022 11:00-0500 Heart rate 88 /min Alissa Major [employer] GENER[employer] Work Phone: [facility] 01-12-2022 11:00-0500 SaO2% (BldA) [Mass fraction] 93 % Alissa Major [employer] GENER[employer]ENT.[employer] Work Phone: [facility] 01-12-2022 11:00-0500 Systolic blood pressure 96 mm[Hg] Alissa Major [employer]PER[employer] GENERAL [employer]ENT.[employer] Work Phone: [facility] 01-12-2022 10:12-0500 Body temperature 97.9 [degF] Alissa Major [employer] GENER[employer]ENT.[employer] Work Phone: [facility] 01-12-2022 10:12-0500 Respiratory rate 18 /min Alissa Major [employer] GENER[employer] Work Phone: [facility] [...] 04-11-2023 End: 04-11-2023 ambulatory Devon Moreira Other [employer] Other Start: 04-11-2023 Telephone encounter Devon NUNEZ [facility] Start: 03-18-2023 End: 03-18-2023 ambulatory NI CABRERA Not Available Start: 03-18-2023 End: 03-18-2023 Office outpatient visit 25 minutes Ni Cabrera DO Work Phone: [facility] [phone] Comment on above: 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 ([facility]) (Primary Dx); 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 ([facility]); Type 1 diabetes mellitus with nephropathy ([facility]); Type 1 diabetes mellitus with hypoglycemia and without coma ([facility]); 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 ([facility]) Start: 02-17-2023 End: 02-17-2023 ambulatory Devon Moreira Other [employer] Other Start: 02-17-2023 Telephone encounter Devon Moreira MAYRA Anais [facility] Start: 01-14-2023 End: 01-14-2023 ambulatory Devon Moreira Other [employer] Other Start: 01-14-2023 Sbs nursing facil c are/day minor complj 15 min [facility] Start: 12-10-2022 End: 12-10-2022 ambulatory Devon Moreira Other [employer] Other Start: 12-10-2022 Sbsq nursing facil c are/day minor complj 15 min [facility] Start: 11-12-2022 End: 11-12-2022 ambulatory eDvon Moreira Other [employer] Other Start: 11-12-2022 Sbsq nursing facil c are/day minor complj 15 min [facility] Start: 10-16-2022 Refill Asia Pike MD Work Phone: [facility] Comment on above: Med Change Request Start: 10-12-2022 End: 10-12-2022 ambulatory Devon Moreira Other [employer] Other Start: 10-12-2022 Telephone encounter Devon Lillie [facility] Start: 10-08-2022 End: 10-08-2022 ambulatory Devon Moreira Other [employer] Other Start: 10-08-2022 Sbsq nursing facil c are/day new problem 25 min [facility] Start: 09-22-20[facility]: [facility] Start: 09-10-2022 End: 09-10-2022 ambulatory Devon Moreira Other [employer] Other Start: 09-10-2022 Sbsq nursing facil c are/day new problem 25 min [facility] Start: 09-09-2022 End: 09-09-2022 ambulatory [facility] Start: 08-06-2022 End: 08-06-2022 ambulatory Devon Moreira Other [employer] Other Start: 08-06-2022 Sbsq nursing facil c are/day new problem 25 min [facility] Start: 07-22-2022 End: 07-22-2022 ambulatory Devon Moreira Other [employer] Other Start: 07-22-2022 Telephone encounter Devon Moreira [facility] Start: 07-20-2022 End: 07-20-2022 ambulatory Sadia Aguilar Facility:[facility] Start: 07-20-2022 End: 07-20-2022 ambulatory DO Devon [...] 06-25-2022 End: 06-25-2022 ambulatory Devon Moreira Other [employer] Other Start: 06-25-2022 Sbsq nursing facil c are/day minor complj 15 min Devon Moreira [facility] Start: 06-19-2022 End: 06-19-[address] DEVON MOREIRA Facility:[facility] Start: 06-15-2022 End: 07-15-2022 ambulatory SHAIKH Kate MURRAY Facility:[facility] Start: 06-12-2022 End: 06-12-[address] DOCTOR WALSH Facility:[facility] Start: 06-05-2022 Sbsq nursing facil c are/day new problem 25 min [facility] Start: 06-05-2022 End: 06-05-[address] DEVON MOREIRA [facility] [employer] Other Start: 05-29-2022 End: 05-29-[address] DEVON MOREIRA Facility:[facility] Start: 05-22-2022 End: 05-22-[address] DEVON MOREIRA Facility:[facility] Start: 05-20-2022 End: 05-20-[address] DEVON MOREIRA Facility:[facility] Start: 05-18-2022 End: 06-12-2022 ambulatory SHAIKH Kate MURRAY Facility:[facility] Start: 05-15-2022 End: 05-15-[address] DEVON MOREIRA Facility:[facility] Start: 05-13-2022 End: 05-13-2022 ambulatory Van Olivarez OPERATIONS GENERAL AGENT.INSPECTOR CONVEYOR LINE Work Phone: [facility] Comment on above: results Start: 05-13-2022 E-mail encounter fro m caregiver Van Olivarez OPERATIONS GENERAL AGENT.INSPECTOR CONVEYOR LINE Work Phone: [facility] Start: 05-08-2022 End: 05-08-[address] DEVON MOREIRA Facility:[facility] Start: 05-07-2022 End: 05-07-2022 ambulatory Devon Moreira Other [employer] Other Start: 05-07-2022 Sbs nursing facil c are/day new problem 25 min Devon Moreira [facility] Start: 05-06-2022 End: 05-06-2022 ambulatory [...] MOREIRA Facility:[facility] Start: 04-02-2022 ambulatory Van cortes OPERATIONS GENERAL AGENT.INSPECTOR CONVEYOR LINE Work Phone: [facility] Start: 04-01-2022 End: 04-01-[address] DEVON MOREIRA Facility:[facility] Start: 03-22-2022 Anne Pike MD Work Phone: [facility] Comment on above: Med Change Request Start: 03-21-2022 ambulatory SHAIKH Kate MURRAY Facilit y:[facility] Start: 03-11-2022 End: 03-11-[address] DEVON MOREIRA Facility:[facility] Start: 03-10-2022 End: 03-10-2022 ambulatory [facility] Start: 02-27-2022 Refill Samira [facility] Comment on above: Rx Refills Start: 02-26-2022 End: 02-26-2022 ambulatory DEVON MOREIRA Facility:[facility] Start: 02-26-2022 End: 02-26-2022 Patient encounter procedure [...] Facility:[facility] Start: 02-05-2022 End: 02-06-2022 [facility] Start: 02-05-2022 End: 02-05-2022 Patient encounter procedure [facility] Work Phone: [facility] Comment on above: Kidney replaced by t ransplant (Primary Dx); 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; detention current use of immunosuppressive drug Start: 01-26-2022 End: 01-26-[address] DEVON MOREIRA Facility:[facility] Start: 01-20-2022 Telephone encounter Van Olivarez APRN.CNP Work Phone: [facility] [place] Comment on above: Results Start: 01-19-2022 End: 01-19-[address] DEVON MOREIRA Facility:[facility] Start: 01-16-2022 ambulatory SHAIKH Kate MURRAY Facilit y:[facility] Start: 01-12-2022 End: 01-12-2022 Subsequent hospital visit by physician Alissa Chavira APRN.INSPECTOR CONVEYOR LINE Work Phone: [facility] Comment on above: ILIANA (acute kidney in jury) (HCC) [N17.9] Start: 12-30-2021 End: 12-30-2021 ambulatory Paresh Fonseca MD Work Phone: Infectious Disease Comment on above: MRSA bacteremia (Arabella munira Dx); Diabetic foot ulcer with osteomyelitis (HCC) Start: 12-30-2021 End: 12-30-2021 Telemedicine consultation with patient Paresh Fonseca MD Work Phone: [facility] Start: 12-29-2021 End: 12-29-2021 ambulatory [...] [facility] Start: 12-08-2021 Orders Only Artur Basiliomisael charles OPERATIONS GENERAL AGENT.INSPECTOR CONVEYOR LINE Work Phone: Transplant Center Comment on above: Kidney replaced by t ransplant (Primary Dx) Start: 12-07-2021 ambulatory Paresh Fonseca MD Work Phone: [facility] Comment on above: CoPat Start (copat s top 12/27/21) Start: 12-05-2021 Telephone encounter Paresh Fonseca MD Work Phone: Infectious Disease Comment on above: Patient Update (evus held discussion/) Start: 12-01-2021 Follow-up encounter [facility] Provider [facility] Start: 12-01-2021 Patient encounter [...] management encounter Start: 11-14-2021 End: 11-15-2021 ambulatory [facility] Sebastian [facility] Facility:[facility]1 Start: 10-24-2021 End: 11-15-2021 ambulatory SHAIKH Kate MURRAY Facility:[facility]1 Start: 10-22-2021 End: 10-23-2021 ambulatory [facility] Sebastian [facility] Facility:[facility]1 Start: 10-06-2021 ambulatory Van cortes OPERATIONS GENERAL AGENT.INSPECTOR CONVEYOR LINE Work Phone: Kidney Medicine [facility] Start: 09-30-2021 Anne Pike MD Work Phone: [facility]ney [facility] Comment on above: Refill Request Start: 09-19-2021 End: 09-24-2021 Evaluation and management of inpatient DR PROSPER LEES Facility:[facility]1 Start: 09-18-2021 End: 09-19-[address] DEVON MOREIRA Facility:[facility] Start: 07-11-2021 Refill Asia Pike MD Work Phone: [facility] Comment on above: Refill Request Start: 06-05-2021 Telephone encounter Van Kuldeep Olivarez OPERATIONS GENERAL AGENT.INSPECTOR CONVEYOR LINE Work Phone: [facility] Comment on above: Results Start: 02-05-2021 End: 02-13-2021 ambulatory UNKNOWN PROVIDER Facility:[facility] Procedures Date Procedure Procedure Detail Performing Clinician Start: 03-18-2023 Hemoglobin glycosyla rk a1c Ni Cabrera DO Work Phone: Start: 02-05-2022 Creatinine other source Asia Pike MD Work Phone: Start: 02-05-2022 Urnls dip stick/tabl et rgnt auto w/o microscopy Asia Pike MD Work Phone: Start: 01-12-2022 Prothrombin time Alissa Chavira OPERATIONS GENERAL AGENT.INSPECTOR CONVEYOR LINE Work Phone: Start: 12-01-2021 [facility]IN[facility] CHECK [facility] Provider Start: 11-29-2021 Microscopic examinat ion of blood, culture DR PROSPER LEES Comment on above: Performed By: #### B [id number] ####[facility] [id number] [place] [id number]. Farhat Leal Start: 11-27-2021 Insertion of Infusio n [...] renal transplant KIDNEY TRANSPLANT STATUS Van Olivarez OPERATIONS GENERAL AGENT.INSPECTOR CONVEYOR LINE Work Phone: History of renal transplant Kidney replaced by transplant Artur Garciajasvir OPERATIONS GENERAL AGENT.INSPECTOR CONVEYOR LINE Work Phone: History of renal transplant Kidney replaced by transplant [facility] Work Phone: History of renal transplant Devon Moreira Other History of renal transplant Kidney replaced by transplant Asia Pike MD Work Phone: History of renal transplant Devon Moreira Other Plan of Treatment Date Care Activity Detail Author Start: 06-17-2023 End: 06-17-2023 Patient encounter procedure 06/17/2023 2:15 PM EDT Office Visit [facility] [address] [place] [address] Ni Cabrera DO [address] [facility] [address] [place] [address] [facility] [address] Start: 06-16-2023 Hemoglobin A1c measurement Diabetes: Hemoglobin A1C [facility] Start: 02-26-2023 BP CONTROLLED (<130/80) BP [...] Center Start: 10-16-2022 Influenza vaccination [facility] Start: 05-15-2022 Medicare Annual Wellness (AWV) Medicare Annual Wellness (AWV) [facility] Start: 04-08-2022 BP CONTROLLED (<130/80) BP [...] Center Start: 10-16-2021 Influenza vaccination C [facility] Start: 03-26-2021 COVID-19 VACCINE (3 - Yung [...] Pneumococcal Vaccine: 65+ Years (3 - PCV) [facility] Start: 04-06-2015 Hemoglobin A1c/Hemoglobin.total in Blood HBA1C [facility] Start: 11-22-2010 Hepatitis B surface antibody level LDL CHOLESTEROL [facility] Start: 2009 ADULT PREVNAR-13 ADULT PREVNAR-13 Cl [facility] Start: 2009 PNEUMOVAX AGE 65 [...] Medical Center Start: 1962 ANNUAL PCP TEAM MILLING MACHINE SET UP OPERATOR MATTHEW DISEASE VISIT ANNUAL PCP TEAM CHRONIC DISEASE VISIT [facility] Start: 1956 Adult depression screening assessment DEPRESSION SCREENING [facility] Start: 1954 3 comp foot exam completed DIABETIC FOOT EXAM [facility] Start: 1954 Glaucoma screening Diabetes: R etinopathy Screening [facility] Start: 1954 Hepatitis C antibody , [...] Routine Screening for genitourinary condition Ordered: 10/06/2021 [facility] Work Phone: Comment on above: Ordered: 10/06/2021 URINALYSIS, REFLEX MICROSCOPIC URINALYSIS, REFLEX MICROSCOPIC Lab Routine Screening for genitourinary condition Ordered: 04/02/2022 [facility] Work Phone: Comment on above: Ordered: 04/02/2022 End: 11-17-2022 US LEG ARTERIAL PERIPH UNL VAS LAB US LEG ARTERIAL PERIPH UNL VAS LAB Vascular Lab Routine PAD (peripheral artery disease) (HCC) Nonhealing ulcer of heel (HCC) 1 Occurrences starting 11/17/2021 until 11/17/2022 [facility] Work Phone: Comment on above: 1 Occurrences starti ng 11/17/2021 until 11/17/2022 End: 11-17-2022 US LEG VEIN DVT UNL VAS LAB US LEG VEIN DVT UNL VAS LAB Vascular Lab Routine Acute deep vein thrombosis (DVT) of proximal end of right lower extremity (HCC) 1 Occurrences starting 11/17/2021 until 11/17/2022 [facility] Work Phone: Comment on above: 1 Occurrences starti ng 11/17/2021 until 11/17/2022 [facility] BROTHERS CT & VAS DANIEL BROTHERS CT & VAS [facility] Immunizations Immunization Date Immunization Notes Care Provider Fa cili 12-11-2021 COVID-19 booster vaccine, age 12+ yr, bivalent ([employer]) Paresh Fonseca MD Work Phone: [facility] 12-11-2021 influenza, high-dose , quadrivalent vaccine (FLUZONE HIGH DOSE QUADRIVALENT) Paresh Fonseca MD Work Phone: [facility] 12-11-2021 influenza virus vaccine, unspecified formulation [facility] 10-24-2021 influenza, high dose seasonal, preservative-free Ni Petznick DO Work Phone: [facility] 01-19-2019 influenza, high dose seasonal, preservative-free Ni Petznick DO Work Phone: [facility] 11-25-2017 Seasonal trivalent influenza vaccine, adjuvanted, preservative free Ni Petznick DO Work Phone: [facility] 11-05-2016 influenza, high dose seasonal, preservative-free Ni Petznick DO Work Phone: [facility] 07-30-2014 pneumococcal polysaccharide vaccine, 23 valent Ni Petznick DO Work Phone: [facility] 03-09-2011 influenza virus vaccine, unspecified formulation Van Olivarez APRN.INSPECTOR CONVEYOR LINE Work Phone: [facility] 12-17-2007 influenza virus vaccine, unspecified formulation Van Olivarez APRN.INSPECTOR CONVEYOR LINE Work Phone: [facility] Work Phone: 02-11-2006 influenza virus vaccine, unspecified formulation Van Olivarez OPERATIONS GENERAL AGENT.INSPECTOR CONVEYOR LINE Work Phone: [facility] Work Phone: 12-07-2003 influenza virus vaccine, unspecified formulation Van Olivarez OPERATIONS GENERAL AGENT.INSPECTOR CONVEYOR LINE Work Phone: [facility] Work Phone: 12-07-2003 pneumococcal polysaccharide vaccine, 23 valent Van Olivarez OPERATIONS GENERAL AGENT.INSPECTOR CONVEYOR LINE Work Phone: [facility] Work Phone: NEGATED: Highlighted row has not occurred!12-10-2021 COVID-19 booster vaccine, age 12+ yr, bivalent ([employer]) Paresh Fonseca MD Work Phone: [facility] NEGATED: Highlighted row has not occurred!12-10-2021 influenza, high-dose, quadrivalent vaccine (FLUZONE HIGH DOSE QUADRIVALENT) Paresh Fonseca MD Work Phone: [facility] Payers Date Payer Category Payer Medicare MEDICARE MEDICAR E A AND B [id number] 2009-Present [phone] [address] [address] [place] [address] Medicare [id number] 2009 Medicare [id number] 1.13.159.2.7.3 .[id number] 2009 Unknown [employer] [place] MEDICARE SUPPLEMENT [id number] 2009-Present [phone] [place] [address] Indemnity [id number] [id number].3 .[id number] 2009 Unknown 1.2.840.101006. 1.13.159.2.7.3 .225547.315 2009 Unknown [id number] 2.16.8 40.1.780236.19 2009 Unknown [id number] 1959 Medicare [id number] 1959 Self-pay 1944 Unknown [id number] 2.16.840.1.339762.3.579.2.732 1944 Unknown [id number] 2.16.840.1.000561.3.579.2.593 1944 Unknown [id number] 2.16.840.1.305997.3.579.2.593 1944 Unknown [id number] 2.16.840.1.715720.3.579.2.593 1944 Unknown [id number] 2.16.840.1.276132.3.579.2.593 1944 Unknown [id number] 2.16.840.1.814555.3.579.2.593 1944 Unknown [id number] 2.16.840.1.720662.3.579.2.593 1944 Unknown [id number] 2.16.840.1.675298.3.579.2.593 1944 Unknown [id number] 2.16.840.1.338043.3.579.2.593 1944 Unknown [id number] 2.16.840.1.440947.3.579.2.593 1944 Unknown [id number] 2.16.840.1.456356.3.579.2.593 1944 Unknown [id number] 2.16.840.1.689565.3.579.2.593 1944 Unknown [id number] 2.16.840.1.852876.3.579.2.593 1944 Unknown [id number] 2.16.840.1.140156.3.579.2.593 1944 Unknown [id number] 2.16.840.1.004883.3.579.2.593 1944 Unknown [id number] 2.16.840.1.099892.3.579.2.593 1944 Unknown [id number] 2.16.840.1.277447.3.579.2.593 1944 Unknown [id number] 2.16.840.1.151684.3.579.2.593 1944 Unknown [id number] 2.16.840.1.397038.3.579.2.593 1944 Unknown [id number] 2.16.840.1.319191.3.579.2.593 1944 Unknown [id number] 2.16.840.1.542583.3.579.2.593 1944 Unknown [id number] 2.16.840.1.758794.3.579.2.593 1944 Unknown [id number] 2.16.840.1.644480.3.579.2.593 1944 Unknown [id number] 2.16.840.1.316055.3.579.2.593 1944 Unknown [id number] 2.16.840.1.446299.3.579.2.593 1944 Unknown [id number] 2.16.840.1.576335.3.579.2.593 1944 Unknown [id number] 2.16.840.1.867245.3.579.2.593 1944 Unknown [id number] 2.16.840.1.446602.3.579.2.593 1944 Unknown [id number] 2.16.840.1.988213.3.579.2.593 1944 Unknown [id number] 2.16.840.1.511334.3.579.2.593 1944 Unknown [id number] 2.16.840.1.633456.3.579.2.593 1944 Unknown [id number] 2.16.840.1.872601.3.579.2.593 1944 Unknown [id number] 2.16.840.1.526129.3.579.2.593 1944 Unknown [id number] 2.16.840.1.833193.3.579.2.593 1944 Unknown [id number] 2.16.840.1.064369.3.579.2.593 1944 Unknown [id number] 2.16.840.1.825303.3.579.2.593 1944 Unknown [id number] 2.16.840.1.570085.3.579.2.593 1944 Unknown [id number] 2.16.840.1.580310.3.579.2.593 1944 Unknown [id number] 2.16.840.1.111091.3.579.2.593 1944 Unknown [id number] 2.16.840.1.099692.3.579.2.593 1944 Unknown [id number] 2.16.840.1.652545.3.579.2.593 1944 Unknown [id number] 2.16.840.1.310758.3.579.2.593 1944 Unknown [id number] 2.16.840.1.591570.3.579.2.593 1944 Unknown [id number] 2.16.840.1.529138.3.579.2.593 1944 Unknown [id number] 2.16.840.1.060327.3.579.2.593 1944 Unknown [id number] 2.16.840.1.004254.3.579.2.593 1944 Unknown [id number] 2.16.840.1.307277.3.579.2.593 1944 Unknown [id number] 2.16.840.1.001357.3.579.2.125 9 Medicare Medicare Outpatient [id number] 2T [id number] Unknown [id number] 2.16.840.1.871882.3.579.2.593 Unknown [id number] 2.16.840.1.768801.3.579.2.593 Unknown [id number] 2.16.840.1.005176.3.579.2.531 Social History Date Type Detail Facility Start: [...] Assigned At Not on file C [facility] Start: 03-09-2011 End: 10-20-2022 Cigarettes smoked current [...] Start: 1945 Sex Assigned At Male F [facility] How hard is it for y ou to pay for the very basics like food, housing, medical care, and heating Not hard at all [facility] Work Phone: (I/We) worried wheth [...] 5fr Polyurethane Catheter 1 Lumen Microintroducer - [id number] Start: 12-06-2021 Clinical Notes 06-05-2021 to [...] (ICD-10 - Z89.619) WC dependent. 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 He is being transported by a tractor driver teamster. 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 Zevcasey Almonte control is stable overall. , The [...] of both eyes without macular edema (CMS/HCC) Follow up in about 3 months (around [...] mouth in the morning. documented [facility]30[facility] Evaluation note* Encounter Date Diagnosis Assessment Notes [...] are 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 No bleeding complications Dec, Hyperlipidemia LDL goal [...] fluid balance and to avoid dehydration. Dec, detention (current) use of insulin (ICD-10 - Z79.4) [employer] Other 10-26-2023 Evaluation note* Encounter Date Diagnosis Assessment Notes Treatment Notes Treatment Clinical Notes Nov, Longstanding persistent atrial fibrillation (ICD-10 - I48.11) This patient is in NSR or rate controlled. This patient is anticoagulated to prevent thromboembolic events. They are 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 No bleeding complications Oct, Type 1 diabetes [...] - Z94.0) Continue routine surveillance labs. Oct, detention (current) use of insulin (ICD-10 - Z79.4) [employer] Other 09-01-2023 Miscellaneous Notes* Telephone Encounter - Mary Martinez - 10/16/2022 1:08 PM EDT Pharmacy comment: REQUEST FOR 90 DAYS PRESCRIPTION. DX Code Needed. 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 No bleeding complications Sep, Type 1 diabetes [...] risk for cerebrovascular and cardiovascular disease. Sep, detention (current) use of insulin (ICD-10 - Z79.4) Sep, Kidney transplant status (ICD-10 - Z94.0) f/u transplant clinic Continue surveillance labs [employer] Other 08-08-2023 Miscellaneous Notes* Telephone Encounter - [...] are 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 No s/s bleeding Aug, Type 1 diabetes [...] for cerebrovascular and cardiovascular disease. 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 Lightheaded in the office today, as BP is very low. He denies chest pain, SOB, palpitations, and bleeding on warfarin. Had routine labs last week. Review of Systems Musculoskeletal: Positive for arthritis, joint pain and myalgias. Neurological: Positive for light-headedness. All other systems reviewed and are negative.[facility] 09-09-2022 NoteUT Electrophysiology Consult Note Reason for [...] about 50-60 systolic. patient with friend/ tractor driver teamster from facility, we will take patient to the ER for evaluation --------- Per dr. Alvarez 03/2021 Mr. Almonte, Wiggins , presents to clinic for routine follow [...] of the right coronary artery with robust [id number]-lv-cwruy collaterals. 5. Normal global left ventricular systolic [...] Follow up with Dr. Galvez in the [facility] in the next 2 weeks; he may follow up with Dr. Orosco as needed for interventional issues. 5. Follow up with Dr. Devon Moreira as scheduled. PMH: Past Medical History: Diagnosis Date Abnormal ECG Arrhythmia Atrial fibrillation (CMS/HCC) Chronic kidney disease Coronary artery disease Diabetes mellitus (CMS/HCC) (more content not included)...[facility]06-22-2023 Evaluation note* Encounter Date Diagnosis Assessment Notes [...] are 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 No bleeding complications Jul, Type 1 diabetes [...] risk for cerebrovascular and cardiovascular disease. Jul, detention (current) use of insulin (ICD-10 - Z79.4) Jul, Kidney transplant status (ICD-10 - Z94.0) Monthly labs, ongoing surveillance from transplant clinic [employer] Other 05-15-2023 Progress note Author Sadia Aguilar [facility] June 29, 2022 2:47pm Note Date/Time June 29, 2022 2:46p m [facility] [address] [place] [address] Wound Center Provider Note Signed Patient: Alex Almonte MR#: [id number] : 1945 Acct:[id number] Age/Sex: 76 / M Copies to: DO Sadia Whyte APRN~ HPI Date of Visit Date of Visit: Date of Service: 06/29/2022 Time of Service: 14:45 Narrative HPI: 12/30/21 Alex is a 76 year old male presenting to [facility] wound care for aninitial visit for eval and treatment of a sacral/coccyx area pressure ulcer. [facility] There is an PROGRAM DIRECTOR/TRAFFIC DIRECTOR present for the visit. Medicalhoney gel will [...] brief that was cleaned by this typewriter assembler as well as another nursing staff member, [...] from initial visit here Mode of Arrival/ Staffing Analyst: Facility vehicle Assistive Device Used Today: Wheelchair and Indra Lives with:: Care/Nursing Facility Appetite Description: Within Normal Limits Who helps w/ dressing change?: Nursing Facility Why Do You Need Help?: Can't Reach Ulcer, Limited mobility and Taxing effort to leave home Smoking Status: Former smoker [facility] Medical History (Updated 03/03/22 @ [...] Ulcer/Injury Staging: Unstageable Bed Appearance: Beefy Red, [place], Yellow and Rolled Edges Percent of Wound [...] <Electronically signed by DAVID Aguilar> 06/29/221446 [facility] Work Phone: 1(318) 847-319305-11-2023 Evaluation note* Encounter Date Diagnosis Assessment Notes [...] are 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 No bleeding complications June, Hyperlipidemia LDL goal <100 (ICD-10 - E78.5) Instructed on diet and exercise with continued statin therapy.Discussed the beneficial effects of lowering cholesterol in reducing the risk for cerebrovascular and cardiovascular disease. 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) June, Kidney transplant status (ICD-10 - Z94.0) No s/s rejection [employer] Other 04-24-2023 Progress note Author Sadia Aguilar [facility] June 08, 2022 2:10pm Note Date/Time June 08, 2022 2:1 0pm [facility] [address] [place] [address] Wound Center Provider Note Signed Patient: Alex Almonte MR#: [id number] : 1945 Acct:[id number] Age/Sex: 76 / M Copies to: DO Sadia Whyte APRN~ HPI Date of Visit Date of Visit: Date of Service: 06/08/2022 Time of Service: 14:07 Narrative HPI: 12/30/21 Alex is a 76 year old male presenting to [facility] wound care for aninitial visit for eval and treatment of a sacral/coccyx area pressure ulcer. [facility] There is an PROGRAM DIRECTOR/TRAFFIC DIRECTOR present for the visit. Medicalhoney gel will [...] brief that was cleaned by this typewriter assembler as well as another nursing staff member, [...] from initial visit here Mode of Arrival/ Staffing Analyst: Facility vehicle Assistive Device Used Today: Wheelchair and Indra Lives with:: Care/Nursing Facility Appetite Description: Within Normal Limits Who helps w/ dressing change?: Nursing Facility Why Do You Need Help?: Can't Reach Ulcer, Limited mobility and Taxing effort to leave home Smoking Status: Former smoker [facility] Medical History (Updated 03/03/22 @ [...] Ulcer/Injury Staging: Unstageable Bed Appearance: Beefy Red, [place], Yellow and Rolled Edges Percent of Wound [...] 15 Dictated By: Sadia Aguilar APRN DD/ 06 Signed By: <Electronically signed by DAVID Aguilar> 06/08/22 1410 [facility] Work Phone: 1(411) 106-106304-21-2023 Evaluation note* Encounter Date Diagnosis Assessment Notes [...] are 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 May, detention (current) use of insulin (ICD-10 - Z79.4) May, Kidney transplant status (ICD-10 - Z94.0) routine labs per clinic. 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 No open ulcerations present Pain controlled [employer] Other 03-27-2023 Progress note Author Sadia Aguilar [facility] May 11, 2022 1:41pm Note Date/Time May 11, 2022 1:4 0pm [facility] [address] [place] [address] Wound Center Provider Note Signed Patient: Alex Almonte MR#: [id number] : 1945 Acct:[id number] Age/Sex: 76 / M Copies to: DO Sadia Whyte APRN~ HPI Date of Visit Date of Visit: Date of Service: 05/11/2022 Time of Service: 13:38 Narrative HPI: 12/30/21 Alex is a 76 year old male presenting to [facility] wound care for aninitial visit for eval and treatment of a sacral/coccyx area pressure ulcer. [facility] There is an PROGRAM DIRECTOR/TRAFFIC DIRECTOR present for the visit. Medicalhoney gel will [...] brief that was cleaned by this typewriter assembler as well as another nursing staff member, [...] from initial visit here Mode of Arrival/ Staffing Analyst: Facility vehicle Assistive Device Used Today: Wheelchair and Indra Lives with:: Care/Nursing Facility Appetite Description: Within Normal Limits Who helps w/ dressing change?: Nursing Facility Why Do You Need Help?: Can't Reach Ulcer, Limited mobility and Taxing effort to leave home Smoking Status: Former smoker [facility] Medical History (Updated 03/03/22 @ [...] Ulcer/Injury Staging: Unstageable Bed Appearance: Beefy Red, [place] and Yellow Percent of Wound Bed Granulated/Red: [...] [address] [facility] Work Phone: 1(267) 444-774703-23-2023 Evaluation note* Encounter Date Diagnosis Assessment Notes [...] are 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 Apr, Type 1 diabetes mellitus with hyperglycemia [...] are reviewed at the office visit Apr, detention (current) use of insulin (ICD-10 - Z79.4) Apr, Kidney transplant status (ICD-10 - Z94.0) Serial labs by clinic Hydrate, avoid NSAIDS [employer] Other 03-10-2023 NoteHNO ID: [id number] Author: Keyur Brown MD Service: ? Author Type: Physician Type: Progress Notes Filed: 04/24/2022 10:32 AM Note Text: Encounter opened in error, patient not seen.[facility]02-28-2023 Progress note Author Sadia Aguilar [facility] April 14, 2022 2:19pm Note Date/Time April 14, 2022 2:18pm [facility] [address] [place] [address] Wound Center Provider Note Signed Patient: Alex Almonte MR#: [id number] : 1945 Acct:[id number] Age/Sex: 76 / M Copies to: DO Sadia Whyte APRN~ HPI Date of Visit Date of Visit: Date of Service: 04/14/2022 Time of Service: 14:18 Narrative HPI: 12/30/21 Alex is a 76 year old male presenting to [facility] wound care for aninitial visit for eval and treatment of a sacral/coccyx area pressure ulcer. [facility] There is an PROGRAM DIRECTOR/TRAFFIC DIRECTOR present for the visit. Medicalhoney gel will [...] brief that was cleaned by this typewriter assembler as well as another nursing staff member, [...] from initial visit here Mode of Arrival/ Staffing Analyst: Facility vehicle Assistive Device Used Today: Wheelchair and Indra Lives with:: Care/Nursing Facility Appetite Description: Within Normal Limits Who helps w/ dressing change?: Nursing Facility Why Do You Need Help?: Can't Reach Ulcer, Limited mobility and Taxing effort to leave home Smoking Status: Former smoker [facility] Medical History (Updated 03/03/22 @ [...] Ulcer/Injury Staging: Unstageable Bed Appearance: Beefy Red, [place] and Yellow Percent of Wound Bed Granulated/Red: [...] Signed By: <Electronically signed by DAVID Aguilar> 04/14/221418 [facility] Work Phone: 1(718) 864-972302-16-2023 NotePatient Outreach (KIMBERLY) ALEX ALMONTE ([id number]) 1945 M TRN Date Time Provider Department 04/02/22 VAN OLIVAREZ During your visit today, we recorded the following information about you: Allergies As of Date: 04/02/2022 Noted Allergy Reaction PYRIDOSTIGMINE BROMIDE 08/04/2021 8 - GI Upset Date Reviewed: 02/26/2022 Reviewed by: Braden Abel MA - Fully Assessed Visit Diagnosis:Screening for genitourinary condition [Z13.89] Order(s):URINALYSIS, REFLEX MICROSCOPIC [VPP7967] Order #: [id number] Prescriptions as of 04/06/2022 - tacrolimus IR [...] by mouth. Take one (1) tablet -W- - tacrolimus IR (PROGRAF) 1 mg capsule [...] by mouth daily with lunch. 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 DIABETES UNCOMPL ADULT-UNCONTRLLED [NVT0037] 02/24/2002 KIDNEY TRANSPLANT STATUS [Z94.0] 09/07/2003 PROPHYLACTIC IMMUNOTHERAPY [Z29.8] 07/30/2006 HIDE DYER STEROIDS [[id number]] 07/30/2006 VITAMIN D DEFICIENCY NOS [E55.9] 09/07/2008 [...] diabetes mellitus with diabetic peripher*11/29/2021 Atherosclerosis of [place] artery of extremity w*11/29/2021 Malnutrition of moderate degree (HCC) [E44.0] 12/01/2021 Dermatitis associated with moisture [L30.8] 12/04/2021 Encounter Status:Closed by [employer] on 04/06/22[facility] 03-30-2022 Miscellaneous Notes* Telephone Encounter - [...] [facility]2023 Progress note Author Sadia Aguilar [facility] March 24, 2022 3:00pm Note Date/Time March 24, 2022 2 :59pm [facility] [address] [place] [address] Wound Center Provider Note Signed Patient: Alex Almonte MR#: [id number] : 1945 Acct:[id number] Age/Sex: 76 / M Copies to: DO Sadia Whyte APRN~ HPI Date of Visit Date of Visit: Date of Service: 03/24/2022 Time of Service: 14:58 Narrative HPI: 12/30/21 Alex is a 76 year old male presenting to [facility] wound care for aninitial visit for eval and treatment of a sacral/coccyx area pressure ulcer. [facility] There is an PROGRAM DIRECTOR/TRAFFIC DIRECTOR present for the visit. Medicalhoney gel will [...] brief that was cleaned by this typewriter assembler as well as another nursing staff member, [...] from initial visit here Mode of Arrival/ Staffing Analyst: Facility vehicle Assistive Device Used Today: Wheelchair and Indra Lives with:: Care/Nursing Facility Appetite Description: Within Normal Limits Who helps w/ dressing change?: Nursing Facility Why Do You Need Help?: Can't Reach Ulcer, Limited mobility and Taxing effort to leave home Smoking Status: Former smoker [facility] Medical History (Updated 03/03/22 @ [...] Ulcer/Injury Staging: Unstageable Bed Appearance: Beefy Red, [place] and Yellow Percent of Wound Bed Granulated/Red: [...] [address] [facility] Work Phone: 1([phone]) 318-527301-17-2023 Progress note Author Sadia Aguilar [facility] March 03, 2022 2:41pm Note Date/Time March 03, 2022 2 :41pm [facility] [address] [place] [address] Wound Center Provider Note Signed Patient: Alex Almonte MR#: [id number] : 1945 Acct:[id number] Age/Sex: 76 / M Copies to: DO Sadia Whyte APRN~ HPI Date of Visit Date of Visit: Date of Service: 03/03/2022 Time of Service: 14:38 Narrative HPI: 12/30/21 Alex is a 76 year old male presenting to [facility] wound care for aninitial visit for eval and treatment of a sacral/coccyx area pressure ulcer. [facility] There is an PROGRAM DIRECTOR/TRAFFIC DIRECTOR present for the visit. Medicalhoney gel will [...] brief that was cleaned by this typewriter assembler as well as another nursing staff member, [...] from initial visit here Mode of Arrival/ Staffing Analyst: Facility vehicle Assistive Device Used Today: Wheelchair and Indra Lives with:: Care/Nursing Facility Appetite Description: Within Normal Limits Who helps w/ dressing change?: Nursing Facility Why Do You Need Help?: Can't Reach Ulcer, Limited mobility and Taxing effort to leave home Smoking Status: Former smoker [facility] Medical History (Updated 03/03/22 @ [...] Ulcer Pressure Ulcer/Injury Staging: Unstageable Bed Appearance: [place] and Yellow Percent of Wound Bed Granulated/Red: 90 Percent of Devitalized: 10 Length (cm): 2.2 Width (cm): 1.8 Depth (cm): 1.9 CM Sq: 3.960 Surrounding Tissue Appearance: [place], Hyperpigmented and Satellite lesions Surrounding Tissue Temp: [...] signed by DAVID Aguilar> 03/03/22 1441 [facility] Work Phone: [phone] 568-200501-13-2023 Miscellaneous Notes* Telephone Encounter - RAUL Davidson [...] [facility] NoteHNO ID: [id number] Author: Hina Peterson MD Service: ? Author Type: Physician Type: Progress Notes Filed: 02/26/2022 4:31 PM Note Text: [facility] [place] DEPARTMENT OF VASCULAR SURGERY OUTPATIENT VISIT DATE [...] his postop visit. He has been in penitentiary since then and has been recovering from his acute on chronic congestive heart failure. His wound has largely been healing without any issues and the maxwell and sutures were removed at the nursing facility. He comes here with a lateral wound eschar. He denies any fevers, chills, or any drainage. He is on anticoagulation. 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 Patient on mycophenolate mofetil , cellcept and prednisone Mixed hyperlipidemia due to type 2 diabetes mellitus ([facility]) 11/29/2021 Osteomyelitis ([facility]) 11/29/2021 Paroxysmal atrial fibrillation ([facility]) Renal transplant, status post SA node dysfunction ([facility]) s/p pacemaker Type 2 diabetes mellitus with diabetic neuropathy, with long-term current use of insulin ([facility]) 02/24/2002 PAST SURGICAL HISTORY Procedure [...] by mouth daily with lunch. Magic Cup [place] with lunch aspirin, enteric coated (ASPIRIN, ENTERIC COATED) 81 mg EC tablet Take 1 tablet by mouth once daily. predniSONE (DELTASONE) 5 mg tablet TAKE 1 TABLET BY MOUTH EVERY DAY oxyCODONE IR (ROXICODONE) 5 mg immediate release tablet 1-2 tablets by ORAL/FEEDING TUBE route every 3 hours as needed. Food Supplement, Lactose-Free (ENSURE MAX (more content not included)... [facility]01-12-2023 History of Present illness Narrative* Hina Peterson MD - 02/26/2022 4:25 PM EST Images from the original note were not included. [facility] [place] DEPARTMENT OF VASCULAR SURGERY OUTPATIENT VISIT DATE [...] his postop visit. 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 Patient on mycophenolate mofetil ,cellcept and prednisone Mixed hyperlipidemia due to type 2 diabetes mellitus ([facility]) 11/29/2021 Osteomyelitis ([facility]) 11/29/2021 Paroxysmal atrial fibrillation ([facility]) Renal transplant, status post SA node dysfunction ([facility]) s/p pacemaker Type 2 diabetes mellitus with diabetic neuropathy, with long-term current use of insulin ([facility]) 02/24/2002 PAST SURGICAL HISTORY Procedure [...] Take by mouth. Take one (1) tablet -W-F tacrolimus IR (PROGRAF) 1 mg capsule Take [...] by mouth daily with lunch. Magic Cup [place] with lunch aspirin, enteric coated (ASPIRIN, ENTERIC [...] Home and cell number(Ask for Alex's nurse) [phone] Diagnosis 4 mo f/u wound check Yumiko Mcclain documented in [facility] Miscellaneous Notes* Telephone Encounter - Augusta Medrano RN - 02/19/2022 11:11 AM EST Alex Almonte's nursing facility, [facility], called regarding elevated tacrolimus level (23.9). Spoke with bedside nurse, Zoe, mukul. Level is from last week- unable to [...] [facility] Center12-27-2022 Progress note Author Sadia Aguilar [facility] February 10, 2022 3:47pm Note Date/Time February 10, 2022 3:47pm [facility] [address] [place] [address] Wound Center Provider Note Signed Patient: Alex Almonte MR#: [id number] : 1945 Acct:[id number] Age/Sex: 76 / M Copies to: DO Sadia Whyte APRN~ HPI Date of Visit Date of Visit: Date of Service: 02/10/2022 Time of Service: 15:44 Narrative HPI: 12/30/21 Alex is a 76 year old male presenting to [facility] wound care for aninitial visit for eval and treatment of a sacral/coccyx area pressure ulcer. [facility] There is an PROGRAM DIRECTOR/TRAFFIC DIRECTOR present for the visit. Medicalhoney gel will [...] brief that was cleaned by this typewriter assembler as well as another nursing staff member, few weeks to follow up Subjective Pain Coccyx: Pain Description: Intermittent Pain Intensity: 0 Wound/Ulcer History When did wound start?: 4 weeks ago- from initial visit here Mode of Arrival/ Staffing Analyst: Facility vehicle Assistive Device Used Today: Wheelchair and Indra Lives with:: Care/Nursing Facility Appetite Description: Within Normal Limits Who helps w/ dressing change?: Nursing Facility Why Do You Need Help?: Can't Reach Ulcer, Limited mobility and Taxing effort to leave home Smoking Status: Former smoker [facility] Medical History (Updated 01/20/22 @ [...] Ulcer Pressure Ulcer/Injury Staging: Unstageable Bed Appearance: [place] and Yellow Percent of Wound Bed Granulated/Red: 90 Percent of Devitalized: 10 Length (cm): 2.5 Width (cm): 2.3 Depth (cm): 2.1 CM Sq: 5.750 Surrounding Tissue Appearance: [place], Hyperpigmented and Satellite lesions Surrounding Tissue Temp: [...] [address] [facility] Work Phone: 1(580) 313-808412-22-2022 NoteHNO ID: [id number] Author: Asia Pike MD Service: ? Author Type: Physician Type: Progress Notes Filed: 02/05/2022 9:38 AM Note Text: [facility] [place] Transplant Follow up Portions of this note [...] Indra scale at [facility]: 166.2 lbs per patient. Bed sore on coccyx causing discomfort. Being changed regularly at SNF- reported to be smaller around but still as deep. Patient not very up to date with medications. Patient brought paperwork from [employer] with all medications being received. Patient unsure if they have been drawing labs regularly. Last Tac from 01/19: 12.9 and K 5.9. In need of current labs. Lab orders will be sent with patient and follows as below: Kidney and Pancreas Transplant Standing Lab Orders [address] [place], [place] [address] February 05, 2022 Alex Almonte 1945 [id number] STANDARD TESTING: Diagnosis Codes: Z94.0 Kidney Transplant [...] AT YOUR LABORATORY FACILITY AND FAX TO [phone]. PLEASE CALL [phone]. Provider: Dr. Pike Current Outpatient Medications Medication [...] by mouth daily with lunch. Magic Cup [place] with lunch aspirin, enteric coated (ASPIRIN, ENTERIC COATED) 81 mg EC tablet Take 1 tablet by mouth once daily. atorvastatin (LIPITOR) 40 mg tablet 1 tablet by ORAL/FEEDING TUBE route daily at bedtime. (more content not included)...[facility]12-22-2022 History of Present illness Narrative* Asia Pike MD - 02/05/2022 8:20 AM EST Images from the original note were not included. [facility] [place] Transplant Follow up Portions of this note [...] Indra scale at [facility]: 166.2 lbs per patient. Bed sore on coccyx causing discomfort. Being changed regularly at SNF- reported to be smaller around but still as deep. Patient not very up to date with medications. Patient brought paperwork from [facility] with all medications being received. Patient unsure if they have been drawing labs regularly. Last Tac from 01/19: 12.9 and K 5.9. In need of current labs. Lab orders will be sent with patient and follows as below: Kidney and Pancreas Transplant Standing Lab Orders [address] [facility] [address] [place], [place] [address] February 05, 2022 Alex Almonte 1945 [id number] STANDARD TESTING: Diagnosis Codes: Z94.0 Kidney Transplant [...] AT YOUR LABORATORY FACILITY AND FAX TO [phone]. PLEASE CALL [phone]. Provider: Dr. Pike Current Outpatient Medications Medication [...] by mouth daily with lunch. Magic [employer] [place] with lunch aspirin, enteric coated (ASPIRIN, ENTERIC [...] All other system reviews negative. Augusta Medrano grain merchandising manager: February 05, 2022 9:34 AM I [...] Medical Center12-06-2022 Progress note Author Sadia Aguilar [facility] January 20, 2022 2:21pm Note Date/Time January 20, 2022 2 :21pm [facility] [address] [place] [address] Wound Center Provider Note Signed Patient: Alex Almonte MR#: [id number] : 1945 Acct:[id number] Age/Sex: 76 / M Copies to: Devon Moreira,DO Sadia Aguilar APRN~ HPI Date of Visit Date of Visit: Date of Service: 01/20/2022 Time of Service: 14:17 Narrative HPI: 12/30/21 Alex is a 76 year old male presenting to [facility] wound care for aninitial visit for eval and treatment of a sacral/coccyx area pressure ulcer. [facility] There is an PROGRAM DIRECTOR/TRAFFIC DIRECTOR present for the visit. Medicalhoney gel will [...] from initial visit here Mode of Arrival/ Staffing Analyst: Facility vehicle Assistive Device Used Today: Wheelchair and Indra Lives with:: Care/Nursing Facility Appetite Description: Within Normal Limits Who helps w/ dressing change?: Nursing Facility Why Do You Need Help?: Can't Reach Ulcer, Limited mobility and Taxing effort to leave home Smoking Status: Former smoker [facility] Medical History (Updated 01/20/22 @ [...] Ulcer Pressure Ulcer/Injury Staging: Unstageable Bed Appearance: [place] and Yellow Percent of Wound Bed Granulated/Red: 40 Percent of Devitalized: 60 Length (cm): 5.2 Width (cm): 3.4 Depth (cm): 1.8 CM Sq: 17.680 Surrounding Tissue Appearance: [place] and Hyperpigmented Surrounding Tissue Temp: Warm Drainage [...] signed by DAVID Aguilar> 01/20/22 1421 [facility] Work Phone: [phone]) 410-401412-06-2022 Miscellaneous Notes* Telephone Encounter - Van Olivarez APRN.CNP - 01/20/2022 1:12 PM EST Labs noted from yesterday. Pt is currently residing at [facility], I spoke with the Nurse, the results has been addressed by Physician caring for pt. He had been placed on Chlor Con and this has been discontinued and hyperkalemia has been treated. Van Olivarez APRN.DIAMANTE documented in this encounterK[facility]11-28-[facility] Surgical operation note* Brief Op Note - Misbah Landis PA-C - 01/12/2022 10:41 AM EST BRIEF OPERATIVE / PROCEDURE NOTE LOG ID: [id number] SURGERY/PROCEDURE DATE: 01/12/2022 INCISION/PROCEDURE START TIME: 10:32 AM INCISION CLOSE/PROCEDURE END TIME: 10:35 AM SURGEON(S)/PROCEDURALIST(S) AND AUTOMATED TELLER MANAGER(S): Misbah Landis PA-C SURGERY/PROCEDURE(S): Removal tunneled [...] patient's sister, Munira Brothers and nurse at [facility], Jada ([phone]) andconfirmed appt. for Gerhard removal scheduled on 01/12/22, at [facility]. If instructions are not followed your [...] signed. Arrival at 9:30am to desk QB-1 ([facility]) and check in for your procedure. Veterinary Epidemiologist/Transportation: How will you be arriving for your procedure? Ambulance service. To be arranged by [facility]. If you develop any of the following symptoms before your procedure, please call [phone]. Chills, joint pain, rash, sore throat, cough, loss of smell, reddened eyes, vomiting, abdominal pains, diarrhea, loss of taste, severe headache, weakness, bruising or bleeding, fever, muscle pain, shortness of breath Recovery expectations: You can expect to be in recovery for 30 minutes following the procedure. Written instructions provided to patient via [employer] If you have any questions please call [phone] documented in this encounterKet[facility]11-15-2022 Progress note Author Sadia Aguilar [facility] December 30, 2021 1:49pm Note Date/Time December 30, 2021 1:49pm [facility] [address] [place] [address] Wound Center Provider Note Signed Patient: Alex Almonte MR#: [id number] : 1945 Acct:[id number] Age/Sex: 76 / M Copies to: DO Sadia Whyte APRN~ HPI Date of Visit Date of Visit: Date of Service: 12/30/2021 Time of Service: 13:44 Narrative HPI: 12/30/21 Alex is a 76 year old male presenting to [facility] wound care for aninitial visit for eval and treatment of a sacral/coccyx area pressure ulcer. [facility] There is an PROGRAM DIRECTOR/TRAFFIC DIRECTOR present for the visit. Medicalhoney gel will [...] start?: 4 weeks ago Mode of Arrival/ Staffing Analyst: Facility vehicle Assistive Device Used Today: Wheelchair and Indra Lives with:: Care/Nursing Facility Appetite Description: Within Normal Limits Who helps w/ dressing change?: Nursing Facility Why Do You Need Help?: Can't Reach Ulcer, Limited mobility and Taxing effort to leave home Smoking Status: Former smoker [facility] Medical History (Updated 12/30/21 @ [...] 0.1 CM Sq: 38.500 Surrounding Tissue Appearance: [place] and Hyperpigmented Surrounding Tissue Temp: Warm Drainage [...] [address] [facility] Work Phone: [phone] 551-105211-15-2022 History of Present illness Narrative* Paresh Fonseca [...] is currently at [facility] in [facility] Seen on video together with Zoe -history obtained from bedside nursing. he is getting up in a chair, working with PT diet is back to regular hes doing well. much improved since admission to [facility] infection is all better R BKA stump is healing well- has sutures and maxwell in place. has scabs on the R lateral side but no wound care concerns. It continues to heal. He has a follow-up with vascular surgery later December 2021. has a sacral wound -- he has local wound care following this at [facility] WBC 6.0, creatinine -- 0.8. alt [...] by mouth daily with lunch. Magic [employer] [place] with lunch aspirin, enteric coated (ASPIRIN, ENTERIC [...] and intact DIAGNOSTICS REVIEWED/OPAT LABS REVIEWED Impression/Recommendations Zevcasey Almonte is a 76 year old male from [facility]. 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 History of PAD CAD status post CABG, diabetes, atrial fibrillatioN He originally presented [facility] for having altered mental status [...] 3. Status post right heel I&D at [facility] on 11/24/2021. MRSA, Enterobacter cloacae and [...] will need to coordinate with his SNF [phone] --our ID office will need to arrange for IR gerhard removal. Return to ID as needed 10 Minutes spent via virtual visit. 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 Thanks, Sulma Pardo Hammersmith Helper documented in this encounterK[facility]10-31-2022 Miscellaneous Notes* Telephone Encounter - Gwen Juni Adm Asst I - 12/15/2021 4:11 PM EDT [facility] [phone] called to report IV Vancomycin was started until today. Patient missed 3 days, should patient makeup missed doses? Please advise. Gwen Juni Adm Asst I documented in this encounterKettering [...] serious illness Are taking any medications (prescription, yfbg-cvb-rtylfnl, vitamins, or herbal products) How will I receive EVUSHELD? EVUSHELD consists of two investigational medicines, tixagevimab and cilgavimab. You will receive 1 dose of EVUSHELD, consisting of 2 separate injections (tixagevimab and cilgavimab). EVUSHELD will be given to you by your healthcare provider as 2 intramuscular injections, given one after the other. Viruses can casino change attendant time (mutate) and develop into a slightly [...] caused by certain SARS-CoV-2 variants: Viruses can casino change attendant time (mutate) and develop into a slightly [...] treatment or prevention of COVID-19 go to https://www.fda.gov/lcjinhopa-asnanuvphnrd-yxy- response/ala-sqmzj-qgezpkefpj-mly-kyttwp-mbfexxyem/bxzgkskdy-szf-zyecmyuvijsyh for more information. It is your choice [...] to FDA MedWatch at www.fda.gov/medwatch or call 2-533-HAO-3628 or call [employer] . Additional Information If you have questions, visit the website or call the telephone number provided below. Website Telephone number [email or web address] How can I learn more about COVID-19? Ask your healthcare provider. Visit https://www.cdc.gov/COVID19 Contact your local or state public health department. What is an Emergency Use Authorization? The [place] FDA has made EVUSHELD (tixagevimab co-packaged with cilgavimab) available under an emergency access mechanism called an Emergency Use Authorization EUA. The EUA is supported by a Gang Leader of Health and Human Service ([facility]) declaration that circumstances exist to justify the [...] monohydrate, polysorbate 80, sucrose, water. Distributed by: [employer] [place], [place] Manufactured for: [employer] [place], [place] [employer] 2021. All rightsreserved. documented in this encounterKettering [facility]10-21-2022 Miscellaneous Notes* Telephone Encounter - Paresh Fonseca MD - 12/05/2021 3:05 PM EDT Evusheld (tixagevimab/cilgavimab) Eligibility and Patient Discussion The patient agrees to receive Evusheld (tixagevimab 300 mg and cilgavimab 300 mg) at [place]. The patient verbalized understanding of repeating a COVID test 72 hours prior to the injections. called up patient in response to her mychart message today she tested covid negative on a rapid test on Wednesday this week Discussed evushed fact sheet and she agrees to proceed she will retest again today to [facility] Paresh Fonseca MD documented in this [...] note were not included. [facility] [place] [facility] Department of Cardiovascular Medicine SECTION [...] by mouth. Take one (1) tablet -W- latanoprost(XALATAN 0.005 % EYE DROPS) Use 1 [...] DVT scan. Leg elevation. No Reeder DO, [facility] Vascular Medicine documented in this encounterKettering [facility]08-16-2022 History of Past illness Narrative* Problem Noted Date Resolved Date Altered tissue perfusion 022 documented as of this encounter (statuses as of 09/30/2021) [facility] History of Past illness Narrative* Problem Noted Date Resolved Date Altered tissue perfusion 08/16/2 022 documented as of this encounter (statuses as of 10/09/2021) [address]16-2022 History of Past illness Narrative* Problem Noted Date Resolved Date Altered tissue perfusion 16/2 022 documented as of this encounter (statuses as of 11/18/2021) [address]16-2022 History of Past illness Narrative* Problem Noted Date Resolved Date Altered tissue perfusion 16/2 022 documented as of this encounter (statuses as of 12/01/2021) [address]16-2022 History of Past illness Narrative* Problem Noted Date Resolved Date Altered tissue perfusion 16/2 022 documented as of this encounter (statuses as of 12/05/2021) [address]16-2022 History of Past illness Narrative* Problem Noted Date Resolved Date Altered tissue perfusion 09/30/2 022 documented as of this encounter (statuses as of 12/08/2021) [address]16-2022 History of Past illness Narrative* Problem Noted Date Resolved Date Altered tissue perfusion 16/2 022 documented as of this encounter (statuses as of 12/08/2021) [address]16-2022 History of Past illness Narrative* Problem Noted Date Resolved Date Altered tissue perfusion 16/2 022 documented as of this encounter (statuses as of 12/12/2021) [address]16-2022 History of Past illness Narrative* Problem Noted Date Resolved Date Altered tissue perfusion 16/2 022 documented as of this encounter (statuses as of 12/15/2021) [address]16-2022 History of Past illness Narrative* Problem Noted Date Resolved Date Altered tissue perfusion 16/2 022 documented as of this encounter (statuses as of 12/16/2021) [address]16-2022 History of Past illness Narrative* Problem Noted Date Resolved Date Altered tissue perfusion 16/2 022 documented as of this encounter (statuses as of 12/31/2021) [address]16-2022 History of Past illness Narrative* Problem Noted Date Resolved Date Altered tissue perfusion 16/2 022 documented as of this encounter (statuses as of 01/13/2022) [address]16-2022 History of Past illness Narrative* Problem Noted Date Resolved Date Altered tissue perfusion 16/2 022 documented as of this encounter (statuses as of 01/20/2022) [address]16-2022 History of Past illness Narrative* Problem Noted Date Resolved Date Altered tissue perfusion 16/2 022 documented as of this encounter (statuses as of 02/06/2022) [address]16-2022 History of Past illness Narrative* Problem Noted Date Resolved Date Altered tissue perfusion 09/30/2 022 documented as of this encounter (statuses as of 02/20/2022) [address]16-2022 History of Past illness Narrative* Problem Noted Date Resolved Date Altered tissue perfusion 2 022 documented as of this encounter (statuses as of 02/26/2022) [address]16-2022 History of Past illness Narrative* Problem Noted Date Resolved Date Altered tissue perfusion 2 022 documented as of this encounter (statuses as of 02/27/2022) [address]16-2022 History of Past illness Narrative* Problem Noted Date Resolved Date Altered tissue perfusion 2 022 documented as of this encounter (statuses as of 03/21/2022) [address]16-2022 History of Past illness Narrative* Problem Noted Date Resolved Date Altered tissue perfusion 09/30/2 022 documented as of this encounter (statuses as of 03/30/2022) [address]16-2022 History of Past illness Narrative* Problem Noted Date Resolved Date Altered tissue perfusion 09/30/2 022 documented as of this encounter (statuses as of 04/06/2022) [address]16-2022 History of Past illness Narrative* Problem Noted Date Resolved Date Altered tissue perfusion 2 022 documented as of this encounter (statuses as of 05/13/2022) [address]16-2022 History of Past illness Narrative* Problem Noted Date Diagnosed Date Resolved Date Altered tissue perfusion documented as of this encounter (statuses as of 2022) [address]16-2022 History of Past illness Narrative* Problem Noted Date Diagnosed Date Resolved Date Altered tissue perfusion documented as of this encounter (statuses as of 10/29/2022) [address]16-2022 Miscellaneous Notes* Telephone Encounter - Katina Duque [...] understands. Van Olivarez APRN.CNP [facility]* Diagnosis Screening for genitourinary condition Screening for other and unspecified genitourinary condition documented in this encounter [facility] note* Diagnosis Acute deep vein thrombosis (DVT) of proximal end of right lower extremity (HCC)- Primary PAD (peripheral artery disease) ([facility]) Peripheral vascular disease, unspecified Nonhealing ulcer of heel ([facility]) Anticoagulation management encounter Encounter for therapeutic drug monitoring documented [facility] this encounter [facility]* Diagnosis Encounter for prophylactic measures, unspecified- Primary documented in this encounter [facility]* Diagnosis Kidney replaced by transplant- Primary [facility] in this encounter [facility]* Diagnosis MRSA bacteremia- Primary Bacteremia Diabetic foot ulcer with osteomyelitis ([facility]) Type II or unspecified type diabetes mellitus with other specified manifestations, not stated as uncontrolled ILIANA (acute kidney injury) ([facility]) Acute kidney failure, unspecified documented [facility] this encounter [facility]* Diagnosis Kidney replaced by transplant- Primary 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 detention current use of immunosuppressive drug documented in this encounter [facility] note* Diagnosis Hx of BKA, right (HCC)- Primary PAD (peripheral artery disease) ([facility]) Peripheral vascular disease, unspecified Mixed hyperlipidemia due to type 2 diabetes mellitus ([facility]) Type II or unspecified type diabetes mellitus with renal manifestations, uncontrolled(250.42) Type II or unspecified type diabetes mellitus with renal manifestations, uncontrolled Type 2 diabetes mellitus with diabetic neuropathy, with long-term current use of insulin (HCC) Type 2 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, with long-term current use of insulin (HCC) Paroxysmal atrial fibrillation ([facility]) Atrial fibrillation documented [facility] this [facility]* Diagnosis Screening for genitourinary condition Screening for other and unspecified genitourinary condition documented in this encounter [facility] note* Diagnosis Onset Date Resolution Status At high risk for skin breakdown chronic Diabetes chronic Fecal incontinence chronic Limited mobility chronic Poor appetite chronic Pressure ulcer of sacral region, unstageable chronic Candidiasis [facility] Work Phone: Evaluation noteNo InformationNortGeisinger [facility] [employer] Other Evaluation note* Diagnosis Kidney replaced by transplant- Primary [facility] encounter [facility]* Diagnosis Type 1 diabetes mellitus with [...] COLONOSCOPY 1995,2001, 2014 Hospitalization History see above [facility] [employer] Other Progress note Author Sadia Aguilar [facility] July 20, 2022 1:48pm Note Date/Time July 20, 2022 1:48p m [facility] ENTER [address] [place] [address] Wound Center Provider Note Signed Patient: Alex Almonte MR#: [id number] : 1945 Acct:[id number] Age/Sex: 76 / M Copies to: DO Sadia Whyte, OPERATIONS GENERAL AGENT~ HPI Date of Visit Date of Visit: Date of Service: 07/20/2022 Time of Service: 13:46 Narrative HPI: 12/30/21 Alex is a 76 year old male presenting to [facility] wound care for aninitial visit for eval and treatment of a sacral/coccyx area pressure ulcer. [facility] There is an PROGRAM DIRECTOR/TRAFFIC DIRECTOR present for the visit. Medicalhoney gel will [...] brief that was cleaned by this typewriter assembler as well as another nursing staff member, [...] from initial visit here Mode of Arrival/ Staffing Analyst: Facility vehicle Assistive Device Used Today: Wheelchair and Indra Lives with:: Care/Nursing Facility Appetite Description: Within Normal Limits Who helps w/ dressing change?: Nursing Facility Why Do You Need Help?: Can't Reach Ulcer, Limited mobility and Taxing effort to leave home Smoking Status: Former smoker [facility] Medical History (Updated 03/03/22 @ [...] signed by DAVID Aguilar> 07/20/22 [address] [facility] Work Phone: Reason for referral (narrative)* Outpatient Procedure (Routine) - Authorized Specialty Diagnoses / Procedures Referred By Contac t Referred To Contact [facility] Diagnoses PAD (peripheral artery disease) (HCC) Nonhealing ulcer of heel (HCC) Procedures US LEG ARTERIAL PERIPH UNL VAS LAB DUP-SCAN LXTR ART/ARTL BPGS UNI/LMTD STUDY No Reeder DO [address] [place] [address] [facility] [place] [address] Referral ID Status Reason Start Date Expiration Date Visits Requested Visits Authorized [id number] Authorized Auto-Generat ed Referral 11/17/2021 11/17/2022 1 1 * Outpatient Procedure (Routine) - Authorized Specialty Diagnoses / Procedures Referred By Contac t Referred To Contact [facility] Diagnoses Acute deep vein thrombosis (DVT) of proximal end of right lower extremity (HCC) Procedures US LEG VEIN DVT UNL VAS LAB DUP-SCAN XTR VEINS UNILATERAL/LIMITED STUDY No Reeder DO [address] [place] [address] [place] [address] Referral ID Status Reason Start Date Expiration Date Visits Requested Visits Authorized [id number] Authorized Auto-Generat ed Referral 11/17/2021 11/17/2022 1 1 * Consult, Test, Treat (Routine) - Authorized Specialty Diagnoses / Procedures Referred By Contac t Referred To Contact Cardiology Diagnoses PAD (peripheral artery disease) (HCC) Nonhealing ulcer of heel (HCC) Procedures CONSULT TO CARDIOLOGY OFFICE/OUTPATIENT [facility] 60-74 MINUTES Savanah Marcelo MD [address] [place] [address] Referral ID Status Reason Start Date Expiration Date Visits Requested Visits Authorized [id number] Authorized PCP Requested Referral 11/17/2021 11/17/2022 1 1 [facility] Summary Purpose Family History Relationship Condition Age at Onset Recorded Date/T kartik father Aneurysm Unknown father Parkinson's disease Unknown Advance Directives Documents on File Type Date Recorded Patient Progressive Care Nurse Expl anation Advance Directive(s) Latest Code Status [...] Maker Relationship: M ajority of Adult Siblings (business process representative) DNR-CCA 09/26/2021 11:56 AM 10/01/2021 2:18 [...] Decision Maker Relationship: Majority of Adult Siblings (business process representative) Code Status History Code Status Date [...] Reason for Visit Chief Complaint Open Wound ([facility]) Reason for Visit At high [...] and content) DATE CREATED AUTHOR 02/20/2021 [employer] DATE CREATED AUTHOR AUTHOR'S ORGANIZ ATION 07/25/2022 [facility] DATE CREATED AUTHOR AUTHOR'S ORGANIZ ATION 08/16/2022 [facility] DATE CREATED AUTHOR AUTHOR'S ORGANIZ ATION 09/17/2022 [facility] DATE CREATED AUTHOR AUTHOR'S ORGANIZ ATION 01/14/2023 [facility] DATE CREATED AUTHOR AUTHOR'S ORGANIZ ATION 03/20/2023 [facility] dical Specialists EPIC Source Comments (unrecognize [...] Care Teams (unrecognized sec tion and content) Seafood Manager Relationship Specialty Start Date End Date Devon Moreira, DO [address] [place] [address] PCP - General 05/27/00 Seafood Manager Relationship Specialty Start Date End Date Devon Moreira, DO [address] [place] [address] PCP - General 05/27/00 Seafood Manager Relationship Specialty Start Date End Date Devon Moreira, DO [address] [place] [address] PCP - General 05/27/00 Seafood Manager Relationship Specialty Start Date End Date Devon Moreira, DO [address] [place] [address] PCP - General 05/27/00 Seafood Manager Relationship Specialty Start Date End Date Devon Moreira, DO [address] [place] [address] PCP - General 05/27/00 Seafood Manager Relationship Specialty Start Date End Date Devon Moreira, DO [address] [place] [address] PCP - General 05/27/00 Seafood Manager Relationship Specialty Start Date End Date Devon Moreira, DO [address] [place] [address] PCP - General 05/27/00 Seafood Manager Relationship Specialty Start Date End Date Devon Moreira, DO [address] [place] [address] PCP - General 05/27/00 Seafood Manager Relationship Specialty Start Date End Date Devon Moreira, DO [address] [place] [address] PCP - General 05/27/00 Seafood Manager Relationship Specialty Start Date End Date Devon Moreira, DO [address] [place] [address] PCP - General 05/27/00 Seafood Manager Relationship Specialty Start Date End Date Devon Moreira, DO [address] [place] [address] PCP - General 05/27/00 Seafood Manager Relationship Specialty Start Date End Date Devon Moreira, DO [address] [place] [address] PCP - General 05/27/00 Seafood Manager Relationship Specialty Start Date End Date Devon Moreira, DO [address] [place] [address] PCP - General 05/27/00 Seafood Manager Relationship Specialty Start Date End Date Devon Moreira, DO [address] [place] [address] PCP - General 05/27/00 Seafood Manager Relationship Specialty Start Date End Date Devon Moreira, DO [address] [place] [address] PCP - General 05/27/00 Seafood Manager Relationship Specialty Start Date End Date Devon Moreira, DO [address] [place] [address] PCP - General 05/27/00 Seafood Manager Relationship Specialty Start Date End Date Devon Moreira, DO [address] [place] [address] PCP - General 05/27/00 Seafood Manager Relationship Specialty Start Date End Date Devon Moreira, DO [address] [place] [address] PCP - General 05/27/00 Seafood Manager Relationship Specialty Start Date End Date Devon Moreira, DO [address] [place] [address] PCP - General 05/27/00 Team Status: Active Member Role Status Dates Devon Ball , DO Primary Care Provider Active Team Status: Inactive Member Role Status Dates Devon Moreira DO Primary Care Provider Active Sadia Aguilar APRN Attending Provider Active Seafood Manager Relationship Specialty Start Date End Date Devon Moreira DO [address] [place] [address] PCP - General 05/27/00 Seafood Manager Relationship Specialty Start Date End Date Devon Moreira DO [address] [place] [address] PCP - General 05/27/00 Seafood Manager Relationship Specialty Start Date End Date Ni Cabrera, DO [address] [facility] [address] [place] [address] PCP - ACO Reach 07/09/22 Devon Moreira MD [address] [place] [address] PCP - General Internal Medicine 07/14/22 PRN Active and Recently Administ ered Medications (unrecognized section and content) Medication Order 01/10/2022 01/11/2022 01/12/2022 lidocaine (PF) 10 mg/mL (1 %) injection (XYLOCAINE) SUBCUTANEOUS, X (OR/PROCEDURE) PRN, Starting on Wed01/12/22 at 1032, Until Wed01/13/22 at 0303, Intraprocedure 1032 (Given - Provid er: Vani Hdz APRN.INSPECTOR CONVEYOR LINE) Goals (unrecognized section and content) Goals may [...] BE BASED ON THE PRIMARY CLINICAL RECORDS. [facility]. provides no warranty or guarantee of the accuracy or completeness of information in this document.
[2023-05-05 06:57] LABS: Basophils Absolute Auto 0.1 10^3/uL (0.0-0.1); Basophils Percent Auto 0.7 % (0.2-2.0); Eosinophils Absolute Auto 0.3 10^3/uL (0.0-0.7); Eosinophils Percent Auto 3.5 % (0.9-7.0); Hematocrit 30.4 % (42.0-54.0); Hemoglobin 9.8 g/dL (14.0-18.0); Immature Granulocytes Abs Auto 0.02 10^3/uL (0.00-0.03); Immature Granulocytes Pct Auto 0.3 % (0.0-0.5); Lymphocytes Absolute Auto 2.7 10^3/uL (1.2-3.8); Lymphocytes Percent Auto 36.7 % (20.5-60.0); Mean Corpuscular HGB Conc 32.2 g/dL (29.9-35.2); Mean Corpuscular Volume 83.7 fL (80.0-94.0); Monocytes Absolute Auto 0.9 10^3/uL (0.3-0.8); Monocytes Percent Auto 12.6 % (1.7-12.0); Neutrophils Absolute Auto 3.3 10^3/uL (1.4-6.5); Neutrophils Percent Auto 46.2 % (43.0-75.0); Platelet Count 210 10^3/uL (150-450); Red Blood Count 3.63 10^6/uL (4.70-6.10); Red Cell Distribution Width 15.7 % (11.0-15.0); White Blood Count 7.2 10^3/uL (4.0-11.0)
[2023-05-05 07:19] LABS: Alanine Aminotransferase 18 U/L (16-63); Albumin Globulin Ratio 0.8; Albumin Level 2.6 g/dL (3.4-5.0); Alkaline Phosphatase 74 U/L (46-116); Anion Gap 12.2; Aspartate Amino Transferase 18 U/L (15-37); BUN Creatinine Ratio 32.4; Bilirubin Total 0.5 mg/dL (0.2-1.0); Calcium 8.3 mg/dL (8.5-10.1); Carbon Dioxide 28.6 mmol/L (21.0-32.0); Chloride 102 mmol/L (98-107); Estimated GFR (African America 58 (>=60); Estimated GFR (Non-African Ame 48 (>=60); Globulin 3.3 g/dL; Glucose 171 mg/dL (74-106); INR 2.26; Potassium 3.8 mmol/L (3.5-5.1); Prothrombin Time 22.9 sec (9.0-11.6); Sodium 139 mmol/L (136-145); Total Protein 5.9 g/dL (6.4-8.2)
== END 2023-05-05 02:30 | disposition home or self-care (01) ==
LOC: LAB 02:29
PROVIDERS: PCP Internal Medicine; Visit Provider Internal Medicine
DX: N18.9 Chronic kidney disease, unspecified (principal)
CPT/HCPCS: 36415; 80053; 80197; 85025; 85610

== ENCOUNTER 2023-05-12 02:10 | Outpatient (REF) | payer MEDICARE, OTHER, SELFPAY ==
--- OUTSIDE RECORDS SUMMARY | 2023-05-12 02:15 | XMS_ITS | CCD ---
Author Organization [facility] Care Team Providers Care Scrap Worker Name Role Phone PROVIDER, UNKNOWN Attending Unavailable [...] Unavailable BALL, DR OSORIO Primary Care Unavailable YCN, DR TONYA Manzo Consulting Unavailabl e ZIEBER, [...] SHAIKH Kate MURRAY Attending Unavailable SHAIKH Kate UMRRAY Admitting Unavailable BALL, DR OSORIO Primary Care [...] BALL, DR OSORIO Primary Care Unavailable FAGGIONATO, RATUR Attending Unavailable FAGGIONATO, ARTUR Admitting Unavailable BALL, [...] Unavailable FAWWAD, DIAMOND H Admitting Unavailable FAWWAD, DIAMODN H Attending Unavailable BALL, DR OSORIO Primary [...] Consulting Unavailable BALLCONSTANTIN FRANCO Consulting Unavailable ANNALEE PARAAD Consulting Unavailable MISBAH YANES Consulting Unavailable FAWWAD, [...] BALL, DR OSORIO Admitting Unavailable BALL, DR SOORIO Primary Care Unavailable BALL, DR OSORIO Consulting [...] Primary Care Unavailable Ni Cabrera DO Unavailable [phone] Devon Moreira MD Primary Care Provider NI CABRERA Attending Unavailable DEVON MOREIRA Referring Unavailable Allergies Allergy Classification Reported Allergen(s) Allergy Type Date of Onset Reaction(s) Facility (20 sources) Pyridostigmine; Translations: [PYRIDOSTIGMINE BROMIDE] Drug Allergy 2 GI Upset [facility] Work Phone: (1 source) ALLERGIES NOT ON FILE; Translations: [ALLERGIES NOT ON FILE] Propensity to adverse reactions (disorder) [facility] Repository (1 source) Pyridostigmine Drug Allergy 2 [...] Indications: Type 1 diabetes mellitus with nephropathy ([facility]) 3 units breakfast, 5 units lunch, [...] 10 units and notify provider [facility] [place] [place] [phone] MG (6 sources) take 155-852 tablets [...] needed. docusate sodium 50 mg / sennosides, custodial 8.6 mg oral tablet (20 sources) Start: [...] by mouth daily with lunch. [employer] [place] with lunch 7110 mL 0 12/11/2021 Active Comment on above: Take 237 mL by mouth daily with lunch. 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] Onset: 2 Episodic Other aftercare (5 sources) [facility] (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 of anticoagulants; Translations: [NURSING HOME CURRNT USE ANTICOAGULANTS] Onset: 3 Episodic Other [...] 07-30-2006 Episodic Other aftercare (2 sources) Other half-way (current) drug therapy; Translations: [OTH AQUACULTURAL WORKER SUPERVISOR CURRENT DRUG THERAPY] Onset: 02-05-2022 Episodic Other aftercare (4 sources) Encounter for orthopedic aftercare following surgical amputation; Translations: [ENC ORTHOPED AFTERCARE FLW SURG AMP] Onset: 02-05-2022 Episodic Other aftercare (4 sources) 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; Translations: [NURSING HOME CURRENT USE ANTIBIOTICS] Onset: 12-20-2021 Episodic Other aftercare (1 source) [facility] (current) use of aspirin; Translations: [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 [place] with lunch aspirin, enteric coated (ASPIRIN, ENTERIC [...] Pts RN at [facility] reports pts sister picks up [...] (more content not included)... Normal [facility] Office Visiton 09-09-2022 Follow-up visit [id number] Alex Almonte 1945 M Date Provider Department Center 09/09/2022 1596-SARTHAK PARNELL CARD Rupal Hos Family History Problem Relation Age of Onset Cancer Mother Aneurysm Father Cancer Father Parkinsonism Father Family Status - Relation Status Age at Mother Father Level of Service:12741 [place] OFFICE/OUTPATIENT ESTABLISHED MOD MDM 30-39 MIN Normal [facility] Glucose Poct Glucometerson 0 07-20-2022 Commemt1 Glu2: Cleaned Meter Normal [facility] Comment on above: Result Comment: PERF ORMED BY: [facility] [address] [place] [address] PATHOLOGIST TENTER FEEDER JOSE F ELLIOTT M.D. Performed By: #### G LULS #### Point of Care testing , Glucose [Mass/Vol] 176 mg/dL Normal [facility] Comment on above: Result Comment: [facility] Glucose Reference Range is dependent on time and content of last meal. Glucose of more than 200 mg/dL in a nonstressed, ambulatory subject supports the diagnosis of Diabetes Mellitus. Performed By: #### G LULS #### Point of Care testing , FK506 (TACROLIMUS) WHOLE BLO ODon 07-12-2022 Tacrolimus (FK506), Blood 10.9 ng/mL Normal 2.0-20.0 [facility] Comment on above: Result Comment: Trou gh (immediately following transplant) 15.0 . Trough (steady state, 2 weeks or more after transplant): 3.0 - 8.0 . Performed by LC-MS/MS technology. Performed By: #### F [id number] ####[facility] [address]fx[address] [place], [place] [address]Dr. Farhat Leal CBC AUTO DIFFon 07-10-2022 BASO # 0.0 103/ul Normal 0.0-0.1 [facility] Comment on above: Performed By: #### C BC ####[facility] [address]xtj[address] [place], [place] [address]Dr. Farhat Leal Basophils/100 WBC (Bld) 0.5 % Normal 0.2-2.0 [facility] Comment on above: Performed By: #### C BC ####[facility] Rwjcapsxeg[address] [place], [place] [address]Dr. Farhat Leal EO # 0.3 103/ul Normal 0.0-0.7 [facility] Comment on above: Performed By: #### C BC ####[facility] Ajisgzqlxb[address] [place], [place] [address]Dr. Farhat Leal Eosinophils/100 WBC (Bld) 4.9 % Normal 0.9-7.0 [facility] Comment on above: Performed By: #### C BC ####[facility] K[address] [place], [place] [address]Dr. Farhat Leal Erythrocyte distribution width (RBC) [Ratio] 13.8 % Normal 11.0-15.0 [facility] Comment on above: Performed By: #### C BC ####[facility] R[address]atmovuj[address] [place], [place] [address]Dr. Farhat Leal Hematocrit (Bld) [Volume fraction] 36.6 % Critically low 42.0-54.0 [facility] Comment on above: Performed By: #### C BC ####[facility] [address] [place] [id number]. Farhat Leal Hemoglobin (Bld) [Mass/Vol] 12.2 g/dL Critically low 14.0-18.0 [facility] Comment on above: Performed By: #### C BC ####[facility] [address] [place] [address]Dr. Farhat Leal IG # 0.01 10e3/ul Normal 0.00-0.03 [facility] Comment on above: Performed By: #### C BC ####[facility] [address] [place] [address]Dr. Farhat Leal IG % 0.2 % Normal 0.0-0.5 [facility] Comment on above: Performed By: #### C BC ####[facility] [address]ent[address]aj[address] [place] [address]Dr. Farhat Leal LYMPH # 2.2 103/ul Normal 1.2-3.8 [facility] Comment on above: Performed By: #### C BC ####[facility] [address] [place] [address]Dr. Farhat Leal Lymphocytes/100 WBC (Bld) 33.9 % Normal 20.5-60.0 [facility] Comment on above: Performed By: #### C BC ####[facility] [address] [place] [address]Dr. Farhat Leal MANUAL DIFF REQ NO Normal [facility] Comment on above: Performed By: #### C BC ####[facility] [address] [place] [phone]. Farhat Leal MCH (RBC) [Entitic mass] 31.0 pg Normal 25.9-34.0 [facility] Comment on above: Performed By: #### C BC ####[facility] [address] [place] [phone]. Farhat Leal MCHC (RBC) [Mass/Vol] 33.3 g/dL Normal 29.9-35.2 [facility] Comment on above: Performed By: #### C BC ####[facility] Bdgozgohxv[address] [place], [place] [address]Dr. Farhat Leal MCV (RBC) [Entitic vol] 93.1 fL Normal 80.0-94.0 [facility] Comment on above: Performed By: #### C BC ####[facility] [address] [place] [phone]. Farhat Leal MONO # 0.7 103/ul Normal 0.3-0.8 [facility] Comment on above: Performed By: #### C BC ####[facility] [address] [place] [address]Dr. Farhat Elvis Monocytes/100 WBC (Bld) 10.8 % Normal 1.7-12.0 [facility] Comment on above: Performed By: #### C BC ####[facility] [address] [place] [address]Dr. Farhat Leal NEUT # 3.2 103/ul Normal 1.4-6.5 [facility] Comment on above: Performed By: #### C BC ####[facility] [address]fpsu[address] [place] [address]Dr. Farhat Elvis Neutrophils/100 WBC (Bld) 49.7 % Normal 43.0-75.0 [facility] Comment on above: Performed By: #### C BC ####[facility] [address]ni[address] [place] [address]Dr. Farhat Elvis Platelet mean volume (Bld) [Entitic vol] 10.9 fL Normal 9.5-13.5 [facility] Comment on above: Performed By: #### C BC ####[facility] [address]cpafxlis[address] [place] [phone]. Farhat Elvis PLT 195 103/ul Normal 150-450 [facility] Comment on above: Performed By: #### C BC ####[facility] Qssvzbpyza55[address] [place] [phone]. Farhat Elvis RBC 3.93 106/ul Critically low 4.70-6.10 [facility] Comment on above: Performed By: #### C BC ####[facility] X[address]rlzfolb28[address] [place] [phone]. Farhat Leal WBC 6.4 103/ul Normal 4.0-11.0 [facility] Comment on above: Performed By: #### C BC ####[facility] [address]uncymoqkj[address] [place], [place] [address]Dr. Farhat Leal MAGNESIUMon 07-10-2022 Magnesium [Mass/Vol] 1.9 mg/dL Normal 1.8-2.4 [facility] Comment on above: Performed By: #### M Anais PHOS ####[facility] [address] [place] [address]Dr. Farhat Leal PHOSPHORUSon 07-10-2022 Phosphate [Mass/Vol] 4.7 mg/dL Normal 2.6-4.7 [facility] Comment on above: Performed By: #### Demetrice Manzo PHOS ####[facility] R[address]wfx[address]nv[address] [place], [place] [address]Dr. Farhat Leal PROF 14(COMP METB)on 023 Albumin [Mass/Vol] 2.7 g/dL Critically low 3.4-5.0 [facility] Comment on above: Performed By: #### C MP ####[facility] Gvkbgelvhd[address] [place], [place] [address]Dr. Madelynlorri Leal Albumin/Globulin [Mass ratio] 0.8 {ratio} Normal [facility] Comment on above: Performed By: #### C MP ####[facility] Bhkgnerbqm[address] [place], [place] [address]Dr. Madelynlorri Leal ALP [Catalytic activity/Vol] 59 U/L Normal 46-116 [facility] Comment on above: Performed By: #### C MP ####[facility] Tzssvusses[address] [place], [place] [address]Dr. Farhat Leal ALT [Catalytic activity/Vol] 16 U/L Normal 16-63 [facility] Comment on above: Performed By: #### C MP ####[facility] [address]fkeks[address] [place] [address]Dr. Farhat Leal Anion gap [Moles/Vol] 12.3 mmol/L Normal [facility] Comment on above: Performed By: #### C MP ####[facility] Swneizxvdr6451 [place] [phone]. Farhat Leal AST [Catalytic activity/Vol] 17 U/L Normal 15-37 [facility] Comment on above: Performed By: #### C MP ####[facility] Pvemvpuhvb0949 [place] [phone]. Farhat Leal Bilirubin [Mass/Vol] 0.5 mg/dL Normal 0.2-1.0 [facility] Comment on above: Performed By: #### C MP ####[facility] Wukxufxnwv[address] [place], [place] [id number]. Farhat Leal Calcium [Mass/Vol] 8.5 mg/dL Normal 8.5-10.1 [facility] Comment on above: Performed By: #### C MP ####[facility] Ypsooyjmrm92[address] [place], [place] [address]Dr. Farhat Leal Chloride [Moles/Vol] 104 mmol/L Normal 98-107 [facility] Comment on above: Performed By: #### C MP ####[facility] Nlnonjkkfs[address] [place], [place] [address]Dr. Farhat Leal CO2 [Moles/Vol] 27.6 mmol/L Normal 21.0-32.0 [facility] Comment on above: Performed By: #### C MP ####[facility] Juzrjhufdl[address] [place], [place] [address]Dr. Farhat Leal Creatinine [Mass/Vol] 1.79 mg/dL Critically high 0.70-1.30 [facility] Comment on above: Performed By: #### C MP ####[facility] Mfsytnhjpt[address] [place], [place] [address]Dr. Farhat Leal EGFR-AF SOMALI 45 mL/min/1.73m2 Critically low >=60 [facility] Comment on above: Performed By: #### C MP ####[facility] Bcynggrmay[address] [place], [place] [address]Dr. Farhat Leal EGFR-NON AF SOMALI 37 mL/min/1.73m2 Critically low >=60 [facility] Comment on above: Performed By: #### C MP ####[facility] Ypozweijxf65[address] [place] [address]Dr. Farhat Leal Globulin (S) [Mass/Vol] 3.2 g/dL Normal [facility] Comment on above: Performed By: #### C MP ####[facility] [address]ir[address] [place] [address]Dr. Farhat Leal Glucose [Mass/Vol] 203 mg/dL Critically high 74-106 [facility] Comment on above: Performed By: #### C MP ####[facility] Hipwvicxuz65[address] [place] [address]Dr. Farhat Leal Potassium [Moles/Vol] 3.9 mmol/L Normal 3.5-5.1 [facility] Comment on above: Performed By: #### C MP ####[facility] Bbyxfnhjku[address] [place], [place] [address]Dr. Farhat Leal Protein [Mass/Vol] 5.9 g/dL Critically low 6.4-8.2 [facility] Comment on above: Performed By: #### C MP ####[facility] Wgkarcecrv[address] [place], [place] [address]Dr. Farhat Leal Sodium [Moles/Vol] 140 mmol/L Normal 136-145 [facility] Comment on above: Performed By: #### C MP ####[facility] Xmbz[address]vxwh[address] [place], [place] [address]Dr. Farhat Leal Urea nitrogen [Mass/Vol] 61.0 mg/dL Critically high 7.0-18.0 [facility] Comment on above: Performed By: #### C MP ####[facility] Pysxxkbvxh[address] [place], [place] [address]Dr. Farhat Leal Urea nitrogen/Creatinine [Mass ratio] 34.1 mg/mg Normal [facility] Comment on above: Performed By: #### C MP ####[facility] Tmwpcneenb[address] [place], [place] [address]Dr. Farhat Leal PROTIMEon 07-10-2022 INR Coag (PPP) [Relative time] 2.95 {INR} Normal [facility] Comment on above: Performed By: #### P T ####[facility] [address]zifi[address] [place] [address]Dr. Farhat Leal INR GUIDELINES SEE BELOW Normal [facility] Comment on above: Result Comment: MALINA RED INR: 2.0 - 3.0 CONDITIONS NOT LISTED BELOW 2.5 - 3.5 FOR PROSTHETIC HEART VALVE REPLACEMENT 2.5 - 3.5 RECURRENT THROMBOSIS Performed By: #### P T ####[facility] Cieobvbzvf[address] [place], [place] [address]Dr. Farhat Leal PT Coag (PPP) [Time] 29.4 s Critically high 9.0-11.6 [facility] Comment on above: Performed By: #### P T ####[facility] Z[address]waqwotfb[address] [place], [place] [address]Dr. Farhat Leal FK506 (TACROLIMUS) WHOLE BLO ODon 07-07-2022 Tacrolimus (FK506), Blood 8.3 ng/mL Normal 2.0-20.0 [facility] Comment on above: Result Comment: Trou gh (immediately following transplant) 15.0 . Trough (steady state, 2 weeks or more after transplant): 3.0 - 8.0 . Performed by LC-MS/MS technology. Performed By: #### F K506T ####[facility] U[address]erkbk[address] [place], [place] [address]Dr. Farhat Leal CBC AUTO DIFFon 07-03-2022 BASO # 0.0 103/ul Normal 0.0-0.1 [facility] Comment on above: Performed By: #### C BC ####[facility] Lgsbjmameb[address] [place], [place] [address]Dr. Farhat Leal Basophils/100 WBC (Bld) 0.6 % Normal 0.2-2.0 [facility] Comment on above: Performed By: #### C BC ####[facility] Ecgegzsjmn[address] [place], [place] [address]Dr. Farhat Leal EO # 0.3 103/ul Normal 0.0-0.7 [facility] Comment on above: Performed By: #### C BC ####[facility] Zsarafxgmx[address] [place] [address]Dr. Farhat Leal Eosinophils/100 WBC (Bld) 4.1 % Normal 0.9-7.0 [facility] Comment on above: Performed By: #### C BC ####[facility] O[address]navfgl[address] [place], [place] [address]Dr. Farhat Leal Erythrocyte distribution width (RBC) [Ratio] 14.0 % Normal 11.0-15.0 [facility] Comment on above: Performed By: #### C BC ####[facility] [address]tkzq[address]wxs[address] [place], [place] [address]Dr. Farhat Leal Hematocrit (Bld) [Volume fraction] 35.9 % Critically low 42.0-54.0 [facility] Comment on above: Performed By: #### C BC ####[facility] Gzsjekpztk[address] [place], [place] [address]Dr. Farhat Leal Hemoglobin (Bld) [Mass/Vol] 12.0 g/dL Critically low 14.0-18.0 [facility] Comment on above: Performed By: #### C BC ####[facility] [address] [place], [place] [address]Dr. Farhat Leal IG # 0.04 10e3/ul Critically high 0.00-0.03 [facility] Comment on above: Performed By: #### C BC ####[facility] [address]oswaz[address] [place], [place] [address]Dr. Farhat Leal IG % 0.6 % Critically high 0.0-0.5 [facility] Comment on above: Performed By: #### C BC ####[facility] [address]ibtvswii[address] [place], [place] [address]Dr. Farhat Leal LYMPH # 1.5 103/ul Normal 1.2-3.8 [facility] Comment on above: Performed By: #### C BC ####[facility] Q[address]pwfvbdp[address] [place], [place] [address]Dr. Farhat Leal Lymphocytes/100 WBC (Bld) 21.5 % Normal 20.5-60.0 [facility] Comment on above: Performed By: #### C BC ####[facility] [address]hc[address] [place] [address]Dr. Farhat Leal MANUAL DIFF REQ NO Normal [facility] Comment on above: Performed By: #### C BC ####[facility] [address]vtsh[address] [place] [address]Dr. Farhat Leal MCH (RBC) [Entitic mass] 30.8 pg Normal 25.9-34.0 [facility] Comment on above: Performed By: #### C BC ####[facility] [address]ew[address]yn[address] [place] [address]Dr. Farhat Leal MCHC (RBC) [Mass/Vol] 33.4 g/dL Normal 29.9-35.2 [facility] Comment on above: Performed By: #### C BC ####[facility] [address]yrbnm[address] [place] [address]Dr. Farhat Leal MCV (RBC) [Entitic vol] 92.1 fL Normal 80.0-94.0 [facility] Comment on above: Performed By: #### C BC ####[facility] Rjwg[address]uuz1883 [place] [address]Dr. Farhat Leal MONO # 0.6 103/ul Normal 0.3-0.8 [facility] Comment on above: Performed By: #### C BC ####[facility] [address]mnkrovqat3194 [place] [address]Dr. Farhat Elvis Monocytes/100 WBC (Bld) 8.7 % Normal 1.7-12.0 [facility] Comment on above: Performed By: #### C BC ####[facility] Qsscroknxs3726 [place] [address]Dr. Farhat Leal NEUT # 4.4 103/ul Normal 1.4-6.5 [facility] Comment on above: Performed By: #### C BC ####[facility] [address]qrfkmlgov[address] [place], [place] [address]Dr. Farhat Elvis Neutrophils/100 WBC (Bld) 64.5 % Normal 43.0-75.0 [facility] Comment on above: Performed By: #### C BC ####[facility] [address]uyem[address] [place] [address]Dr. Farhat Leal Platelet mean volume (Bld) [Entitic vol] 10.1 fL Normal 9.5-13.5 [facility] Comment on above: Performed By: #### C BC ####[facility] [address]zorpjxi[address] [place] [address]Dr. Farhat Leal PLT 177 103/ul Normal 150-450 [facility] Comment on above: Performed By: #### C BC ####[facility] Zmjklrwmwl[address] [place] [address]Dr. Farhat Leal RBC 3.90 106/ul Critically low 4.70-6.10 [facility] Comment on above: Performed By: #### C BC ####[facility] [address]qcld[address]np[address] [place] [address]Dr. Farhat Leal WBC 6.8 103/ul Normal 4.0-11.0 [facility] Comment on above: Performed By: #### C BC ####[facility] C[address]trcjexh[address] [place] [address]Dr. Farhat Leal PROF 14(COMP METB)on 023 Albumin [Mass/Vol] 2.8 g/dL Critically low 3.4-5.0 [facility] Comment on above: Performed By: #### C MP ####[facility] Lydtxqicji[address] [place] [address]Dr. Farhat Leal Albumin/Globulin [Mass ratio] 0.8 {ratio} Normal [facility] Comment on above: Performed By: #### C MP ####[facility] Gzwosjbkdf[address] [place] [address]Dr. Farhat Leal ALP [Catalytic activity/Vol] 68 U/L Normal 46-116 [facility] Comment on above: Performed By: #### C MP ####[facility] Xiubefwoju76[address] [place] [address]Dr. Farhat Leal ALT [Catalytic activity/Vol] 20 U/L Normal 16-63 [facility] Comment on above: Performed By: #### C MP ####[facility] Ryaiojmgxb65[address] [place] [address]Dr. Farhat Leal Anion gap [Moles/Vol] 11.1 mmol/L Normal [facility] Comment on above: Performed By: #### C MP ####[facility] Tpyddqbbmj[address] [place] [address]Dr. Farhat Leal AST [Catalytic activity/Vol] 22 U/L Normal 15-37 [facility] [facility] Comment on above: Performed By: #### C MP ####[facility] Ryghtrqkvo[address] [place], [place] [address]Dr. Farhat Leal Bilirubin [Mass/Vol] 0.4 mg/dL Normal 0.2-1.0 [facility] Comment on above: Performed By: #### C MP ####[facility] Wwdqknlvvx74[address] [place], [place] [address]Dr. Farhat Leal Calcium [Mass/Vol] 8.5 mg/dL Normal 8.5-10.1 [facility] Comment on above: Performed By: #### C MP ####[facility] Emqlxnpmhr2937[address] [place], [place] [address]Dr. Farhat Elvis Chloride [Moles/Vol] 106 mmol/L Normal 98-107 [facility] Comment on above: Performed By: #### C MP ####[facility] Zzkxjtahfg3[address] [place], [place] [address]Dr. Farhat Leal CO2 [Moles/Vol] 29.1 mmol/L Normal 21.0-32.[address] [facility] Comment on above: Performed By: #### C MP ####[facility] Xqpikvoznz760[address] [place], [place] [address]Dr. Farhat Elvis Creatinine [Mass/Vol] 1.70 mg/dL Critically high 0.70-1.30 [facility] Comment on above: Performed By: #### C MP ####[facility] Ytkurkexpu4414[address] [place], [place] [address]Dr. Farhat Elvis EGFR-AF SOMALI 48 mL/min/1.73m2 Critically low >=60 [facility] Comment on above: Performed By: #### C MP ####[facility] [address]udv[address] [place] [address]Dr. Farhat Leal EGFR-NON AF SOMALI 39 mL/min/1.73m2 Critically low >=60 [facility] Comment on above: Performed By: #### C MP ####[facility] Eddevivbvx[address] [place] [address]Dr. Farhat Leal Globulin (S) [Mass/Vol] 3.6 g/dL Normal [facility] Comment on above: Performed By: #### C MP ####[facility] Yumfguxfrz[address] [place] [address]Dr. Farhat Leal Glucose [Mass/Vol] 312 mg/dL Critically high 74-106 [facility] Comment on above: Performed By: #### C MP ####[facility] Mtxiatqwvz55[address] [place] [address]Dr. Farhat Leal Potassium [Moles/Vol] 4.2 mmol/L Normal 3.5-5.1 [facility] Comment on above: Performed By: #### C MP ####[facility] Cydgvbprfr278[address] [place], [place] [address]Dr. Farhat Leal Protein [Mass/Vol] 6.4 g/dL Normal 6.4-8.2 [facility] Comment on above: Performed By: #### C MP ####[facility] Oyfctxjkph779[address] [place], [place] [address]Dr. Farhat Leal Sodium [Moles/Vol] 142 mmol/L Normal 136-145 [facility] Comment on above: Performed By: #### C MP ####[facility] Ejnsekhidv[address] [place] [address]Dr. Farhat Leal Urea nitrogen [Mass/Vol] 49.0 mg/dL Critically high 7.0-18.0 [facility] Comment on above: Performed By: #### C MP ####[facility] Egnqxkkotm0778[address] [place], [place] [address]Dr. Farhat Leal Urea nitrogen/Creatinine [Mass ratio] 28.8 mg/mg Normal [facility] Comment on above: Performed By: #### C MP ####[facility] Aijrsbxotb6933[address] [place], [place] [address]DrSkylar Leal PROTIMEon 07-03-2022 INR Coag (PPP) [Relative time] 2.23 {INR} Normal [facility] Comment on above: Performed By: #### P T ####[facility] Ysyfmenebe8725[address] [place], [place] [address]DrSkylar Leal INR GUIDELINES SEE BELOW Normal [facility] Comment on above: Result Comment: MALINA RED INR: 2.0 - 3.0 CONDITIONS NOT LISTED BELOW 2.5 - 3.5 FOR PROSTHETIC HEART VALVE REPLACEMENT 2.5 - 3.5 RECURRENT THROMBOSIS Performed By: #### P T ####[facility] Jgpsjmpvyg737[address] [place], [place] [address]DrSkylar Leal PT Coag (PPP) [Time] 22.6 s Critically high 9.0-11.6 [facility] Comment on above: Performed By: #### P T ####[facility] Lzihgtlvrq2447[address] [place], [place] [address]DrSkylar Leal FK506 (TACROLIMUS) WHOLE BLO ODon 06-29-2022 Tacrolimus (FK506), Blood 12.2 ng/mL Normal 2.0-20.0 [facility] Comment on above: Result Comment: Trou gh (immediately following transplant) 15.0 . Trough (steady state, 2 weeks or more after transplant): 3.0 - 8.0 . Performed by LC-MS/MS technology. Performed By: #### F K506T ####[facility] Kjwhuccmic1868[address] [place], [place] [address]Dr. Farhat Leal CBC AUTO DIFFon 06-26-2022 BASO # 0.0 103/ul Normal 0.0-0.1 [facility] Comment on above: Performed By: #### C BC ####[facility] Hokjnwzlah3727[address] [place], [place] [address]DrSkylar Leal Basophils/100 WBC (Bld) 0.5 % Normal 0.2-2.0 [facility] Comment on above: Performed By: #### C BC ####[facility] Zwtcfnjhwo5809[address] [place], [place] [address]DrSkylar Leal EO # 0.3 103/ul Normal 0.0-0.7 [facility] Comment on above: Performed By: #### C BC ####[facility] Nsoukakyug7908[address] [place], [place] [address]Dr. Farhat Leal Eosinophils/100 WBC (Bld) 4.3 % Normal 0.9-7.0 [facility] Comment on above: Performed By: #### C BC ####[facility] Dxmirpodec0486[address] [place], [place] [address]Dr. Farhat Leal Erythrocyte distribution width (RBC) [Ratio] 14.1 % Normal 11.0-15.0 [facility] Comment on above: Performed By: #### C BC ####[facility] Hykiusjnwy2558[address] [place], [place] [address]Dr. Farhat Leal Hematocrit (Bld) [Volume fraction] 35.4 % Critically low 42.0-54.0 [facility] Comment on above: Performed By: #### C BC ####[facility] Evkqmpvmpc950[address] [place], [place] [address]Dr. Farhat Leal Hemoglobin (Bld) [Mass/Vol] 11.8 g/dL Critically low 14.0-18.0 [facility] Comment on above: Performed By: #### C BC ####[facility] Ecpelrvtwn5236[address] [place], [place] [address]Dr. Farhat Leal IG # 0.02 10e3/ul Normal 0.00-0.03 [facility] Comment on above: Performed By: #### C BC ####[facility] Kwcxzjtvyd9086[address] [place], [place] [address]Dr. Farhat Elvis IG % 0.3 % Normal 0.0-0.5 [facility] Comment on above: Performed By: #### C BC ####[facility] Farcbafiqe3006[address] [place], [place] [address]Dr. Farhat Leal LYMPH # 2.4 103/ul Normal 1.2-3.8 [facility] Comment on above: Performed By: #### C BC ####[facility] Witcozyvhe797365 [address] [place], [place] [address]DrSkylar Leal Lymphocytes/100 WBC (Bld) 40.4 % Normal 20.5-60.0 [facility] Comment on above: Performed By: #### C BC ####[facility] Qeptlcahuf97[address] [place] [address]DrSkylar Leal MANUAL DIFF REQ NO Normal [facility] Comment on above: Performed By: #### C BC ####[facility] Xxgpnybgku7757 [place] [address]DrSkylar Leal MCH (RBC) [Entitic mass] 31.0 pg Normal 25.9-34.0 [facility] Comment on above: Performed By: #### C BC ####[facility] Elzevyffvo1789[address] [place], [place] [address]DrSkylar Leal MCHC (RBC) [Mass/Vol] 33.3 g/dL Normal 29.9-35.2 [facility] Comment on above: Performed By: #### C BC ####[facility] Llowlztyhr9311[address] [place], [place] [address]DrSkylar Leal MCV (RBC) [Entitic vol] 92.9 fL Normal 80.0-94.0 [facility] Comment on above: Performed By: #### C BC ####[facility] Prliqrabfi9624[address] [place], [place] [address]DrSkylar Leal MONO # 0.7 103/ul Normal 0.3-0.8 [facility] Comment on above: Performed By: #### C BC ####[facility] Wdjjgpuxbt615[address] [place], [place] [address]DrSkylar Leal Monocytes/100 WBC (Bld) 11.1 % Normal 1.7-12.0 [facility] Comment on above: Performed By: #### C BC ####[facility] Uqhuaosazm8855[address] [place], [place] [address]DrSkylar Leal NEUT # 2.6 103/ul Normal 1.4-6.5 [facility] Comment on above: Performed By: #### C BC ####[facility] Uxuxtcgvwb6069[address] [place], [place] [address]DrSkylar Leal Neutrophils/100 WBC (Bld) 43.4 % Normal 43.0-75.0 [facility] Comment on above: Performed By: #### C BC ####[facility] Zvwbphsuxv037[address] [place] [address]Dr. Farhat Leal Platelet mean volume (Bld) [Entitic vol] 10.4 fL Normal 9.5-13.5 [facility] Comment on above: Performed By: #### C BC ####[facility] Pqrczgsexb9116 [place] [address]Dr. Farhat Leal PLT 211 103/ul Normal 150-450 [facility] Comment on above: Performed By: #### C BC ####[facility] Oriwaipvoh0380[address] [place], [place] [address]Dr. Farhat Leal RBC 3.81 106/ul Critically low 4.70-6.10 [facility] Comment on above: Performed By: #### C BC ####[facility] Azhmvhlxhd3138[address] [place], [place] [address]Dr. Farhat Leal WBC 6.0 103/ul Normal 4.0-11.0 [facility] Comment on above: Performed By: #### C BC ####[facility] Dckohgmjep2145[address] [place], [place] [address]DrSkylar Leal PROF 14(COMP METB)on 023 Albumin [Mass/Vol] 2.6 g/dL Critically low 3.4-5.0 [facility] Comment on above: Performed By: #### C MP ####[facility] Ddhmidfnyt589[address] [place], [place] [address]DrSkylar Leal Albumin/Globulin [Mass ratio] 0.8 {ratio} Normal [facility] Comment on above: Performed By: #### C MP ####[facility] Icnmwajuvj9759[address] [place], [place] [address]DrSkylar Leal ALP [Catalytic activity/Vol] 64 U/L Normal 46-116 [facility] Comment on above: Performed By: #### C MP ####[facility] Elhkonarwb611[address] [place], [place] [address]DrSkylar Leal ALT [Catalytic activity/Vol] 18 U/L Normal 16-63 [facility] Comment on above: Performed By: #### C MP ####[facility] [address]mysoeya[address] [place] [id number]. Farhat Elvis Anion gap [Moles/Vol] 10.2 mmol/L Normal [facility] Comment on above: Performed By: #### C MP ####[facility] Jc[address]uykttq44[address] [place] [id number]. Farhat Elvis AST [Catalytic activity/Vol] 16 U/L Normal 15-37 [facility] Comment on above: Performed By: #### C MP ####[facility] Hplveyixyi6375 [place] [address]Dr. Farhat Leal Bilirubin [Mass/Vol] 0.6 mg/dL Normal 0.2-1.0 [facility] Comment on above: Performed By: #### C MP ####[facility] Ogsrxhkake9978[address] [place], [place] [address]Dr. Madelynlorri Leal Calcium [Mass/Vol] 8.5 mg/dL Normal 8.5-10.1 [facility] Comment on above: Performed By: #### C MP ####[facility] Nxxzvlbemq00[address] [place], [place] [address]Dr. Farhat Leal Chloride [Moles/Vol] 106 mmol/L Normal 98-107 [facility] Comment on above: Performed By: #### C MP ####[facility] Evwfhkzcsf894[address] [place], [place] [address]Dr. Farhat Leal CO2 [Moles/Vol] 29.8 mmol/L Normal 21.0-32.[address] [facility] Comment on above: Performed By: #### C MP ####[facility] Duowontybi1659[address] [place], [place] [address]Dr. Farhat Leal Creatinine [Mass/Vol] 1.60 mg/dL Critically high 0.70-1.30 [facility] Comment on above: Performed By: #### C MP ####[facility] Hyxxnckpbu237[address] [place], [place] [address]Dr. Farhat Leal EGFR-AF SOMALI 51 mL/min/1.73m2 Critically low >=60 [facility] Comment on above: Performed By: #### C MP ####[facility] Pgckhvkazp17[address] [place] [address]Dr. Farhat Elvis EGFR-NON AF SOMALI 42 mL/min/1.73m2 Critically low >=60 [facility] Comment on above: Performed By: #### C MP ####[facility] Bfyroqqbvq4982 [place] [address]Dr. Madelynlorri Elvis Globulin (S) [Mass/Vol] 3.4 g/dL Normal [facility] Comment on above: Performed By: #### C MP ####[facility] Kuyhbugsjk3340[address] [place], [place] [address]Dr. Farhat Leal Glucose [Mass/Vol] 178 mg/dL Critically high 74-106 [facility] Comment on above: Performed By: #### C MP ####[facility] Dnlzrmlzmg7525[address] [place], [place] [address]Dr. Farhat Leal Potassium [Moles/Vol] 4.0 mmol/L Normal 3.5-5.1 [facility] Comment on above: Performed By: #### C MP ####[facility] Kzjwvdnjzt8565[address] [place], [place] [address]Dr. Madelynlorri Elvis Protein [Mass/Vol] 6.0 g/dL Critically low 6.4-8.2 [facility] Comment on above: Performed By: #### C MP ####[facility] Sxcronxrqi089[address] [place], [place] [address]Dr. Farhat Leal Sodium [Moles/Vol] 142 mmol/L Normal 136-145 [facility] Comment on above: Performed By: #### C MP ####[facility] Uougrqdpho2401[address] [place], [place] [address]Dr. Farhat Leal Urea nitrogen [Mass/Vol] 49.0 mg/dL Critically high 7.0-18.0 [facility] Comment on above: Performed By: #### C MP ####[facility] Fqolnybbxq0184[address] [place], [place] [address]Dr. Farhat Leal Urea nitrogen/Creatinine [Mass ratio] 30.6 mg/mg Normal [facility] Comment on above: Performed By: #### C MP ####[facility] Gyjbbfkppn085[address] [place], [place] [address]DrSkylar Leal PROTIMEon 06-26-2022 INR Coag (PPP) [Relative time] 1.77 {INR} Normal [facility] Comment on above: Performed By: #### P T ####[facility] Xddlkobqmp701[address] [place], [place] [address]DrSkylar Leal INR GUIDELINES SEE BELOW Normal [facility] Comment on above: Result Comment: MALINA RED INR: 2.0 - 3.0 CONDITIONS NOT LISTED BELOW 2.5 - 3.5 FOR PROSTHETIC HEART VALVE REPLACEMENT 2.5 - 3.5 RECURRENT THROMBOSIS Performed By: #### P T ####[facility] Owubcqeody2714[address] [place], [place] [address]Dr. Farhat Leal PT Coag (PPP) [Time] 18.2 s Critically high 9.0-11.6 [facility] Comment on above: Performed By: #### P T ####[facility] Ssxsqupmvz997[address] [place], [place] [address]DrSkylar Leal FK506 (TACROLIMUS) WHOLE BLO ODon 06-22-2022 Tacrolimus (FK506), Blood 24.5 ng/mL Invalid Interpretation Code 2.0-20.0 [facility] Comment on above: Result Comment: Trou gh (immediately following transplant) 15.0 . Trough (steady state, 2 weeks or more after transplant): 3.0 - 8.0 . Performed by LC-MS/MS technology.Patient drug level exceeds published reference range. Evaluateclinically for signs of potential toxicity. Performed By: #### F K506T ####[facility] Tsfkbitapx769[address] [place], [place] [address]DrSkylar Leal CBC AUTO DIFFon 06-19-2022 BASO # 0.1 103/ul Normal 0.0-0.1 [facility] Comment on above: Performed By: #### C BC ####[facility] Dpvshsrejl4330[address] [place], [place] [address]DrSkylar Leal Basophils/100 WBC (Bld) 0.7 % Normal 0.2-2.0 [facility] Comment on above: Performed By: #### C BC ####[facility] Rznokvxscl9609[address] [place], [place] [address]Dr. Farhat Leal EO # 0.4 103/ul Normal 0.0-0.7 [facility] Comment on above: Performed By: #### C BC ####[facility] Nkpjvisbbl730[address] [place], [place] [address]Dr. Farhat Leal Eosinophils/100 WBC (Bld) 5.7 % Normal 0.9-7.0 [facility] Comment on above: Performed By: #### C BC ####[facility] Qvetakyyab9745[address] [place], [place] [address]Dr. Farhat Leal Erythrocyte distribution width (RBC) [Ratio] 14.5 % Normal 11.0-15.0 [facility] Comment on above: Performed By: #### C BC ####[facility] Cqkrnjwabu5207[address] [place], [place] [address]Dr. Farhat Leal Hematocrit (Bld) [Volume fraction] 34.1 % Critically low 42.0-54.0 [facility] Comment on above: Performed By: #### C BC ####[facility] Ondsomxybh6730[address] [place], [place] [address]Dr. Farhat Leal Hemoglobin (Bld) [Mass/Vol] 11.3 g/dL Critically low 14.0-18.0 [facility] Comment on above: Performed By: #### C BC ####[facility] Bncjiayolg1998[address] [place], [place] [address]Dr. Farhat Leal IG # 0.02 10e3/ul Normal 0.00-0.03 [facility] Comment on above: Performed By: #### C BC ####[facility] Vpkawoxcid3230[address] [place], [place] [address]Dr. Farhat Leal IG % 0.3 % Normal 0.0-0.5 [facility] Comment on above: Performed By: #### C BC ####[facility] Ffczrrmaoo2157[address] [place], [place] [address]Dr. Farhat Leal LYMPH # 3.1 103/ul Normal 1.2-3.8 [facility] Comment on above: Performed By: #### C BC ####[facility] Pciaqapjyr09[address] [place] [address]DrSkylar Leal Lymphocytes/100 WBC (Bld) 40.6 % Normal 20.5-60.0 [facility] Comment on above: Performed By: #### C BC ####[facility] Bukwhcihhv[address] [place] [address]DrSkylar Leal MANUAL DIFF REQ NO Normal [facility] Comment on above: Performed By: #### C BC ####[facility] Tneuzhqyhe19[address] [place] [address]DrSkylar Leal MCH (RBC) [Entitic mass] 30.6 pg Normal 25.9-34.0 [facility] Comment on above: Performed By: #### C BC ####[facility] Bzcugqcoim86[address] [place] [address]Dr. Farhat Leal MCHC (RBC) [Mass/Vol] 33.1 g/dL Normal 29.9-35.2 [facility] Comment on above: Performed By: #### C BC ####[facility] Qxurbeizjp635[address] [place], [place] [address]DrSkylar Leal MCV (RBC) [Entitic vol] 92.4 fL Normal 80.0-94.0 [facility] Comment on above: Performed By: #### C BC ####[facility] Ldrvtsnjsb9554 [place] [address]DrSkylar Leal MONO # 0.8 103/ul Normal 0.3-0.8 [facility] Comment on above: Performed By: #### C BC ####[facility] Pezvsyztux0694[address] [place], [place] [address]DrSkylar Leal Monocytes/100 WBC (Bld) 10.6 % Normal 1.7-12.0 [facility] Comment on above: Performed By: #### C BC ####[facility] Tvlkwdnuwy439[address] [place], [place] [address]DrSkylar Leal NEUT # 3.2 103/ul Normal 1.4-6.5 [facility] Comment on above: Performed By: #### C BC ####[facility] Vltxijdlkh3381 [place] [address]DrSkylar Leal Neutrophils/100 WBC (Bld) 42.1 % Critically low 43.0-75.0 [facility] Comment on above: Performed By: #### C BC ####[facility] Lvbblfiyvk3754[address] [place], [place] [address]DrSkylar Leal Platelet mean volume (Bld) [Entitic vol] 10.6 fL Normal 9.5-13.5 [facility] Comment on above: Performed By: #### C BC ####[facility] Yzhqaktxzt908[address] [place], [place] [address]DrSkylar Leal PLT 187 103/ul Normal 150-450 [facility] Comment on above: Performed By: #### C BC ####[facility] Xjnchogzhl2046[address] [place], [place] [address]DrSkylar Leal RBC 3.69 106/ul Critically low 4.70-6.10 [facility] Comment on above: Performed By: #### C BC ####[facility] Ahqtawekbm[address] [place], [place] [address]DrSkylar Leal WBC 7.7 103/ul Normal 4.0-11.0 [facility] Comment on above: Performed By: #### C BC ####[facility] Hazvdoqevm1433[address] [place], [place] [address]Dr. Farhat Leal PROF 14(COMP METB)on 023 Albumin [Mass/Vol] 2.5 g/dL Critically low 3.4-5.0 [facility] Comment on above: Performed By: #### C MP ####[facility] Wisyvkjevc35[address] [place], [place] [address]DrSkylar Leal Albumin/Globulin [Mass ratio] 0.8 {ratio} Normal [facility] Comment on above: Performed By: #### C MP ####[facility] Hvuhdwzaev74[address] [place], [place] [address]Dr. Farhat Leal ALP [Catalytic activity/Vol] 60 U/L Normal 46-116 [facility] Comment on above: Performed By: #### C MP ####[facility] Zoitsoyhmm[address] [place] [address]Dr. Farhat Leal ALT [Catalytic activity/Vol] 16 U/L Normal 16-63 [facility] Comment on above: Performed By: #### C MP ####[facility] Ojksuvlcnp7796[address] [place], [place] [address]Dr. Farhat Elvis Anion gap [Moles/Vol] 9.1 mmol/L Normal [facility] Comment on above: Performed By: #### C MP ####[facility] Gdcdeirvxx1970[address] [place], [place] [address]Dr. Farhat Elvis AST [Catalytic activity/Vol] 31 U/L Normal 15-37 [facility] Comment on above: Performed By: #### C MP ####[facility] Tukobgmmzx6377[address] [place], [place] [address]Dr. Farhat Elvis Bilirubin [Mass/Vol] 0.3 mg/dL Normal 0.2-1.0 [facility] Comment on above: Performed By: #### C MP ####[facility] Cdmdgjbuym4401[address] [place], [place] [address]Dr. Farhat Elvis Calcium [Mass/Vol] 8.2 mg/dL Critically low 8.5-10.1 [facility] Comment on above: Performed By: #### C MP ####[facility] Xchjjnedtw299[address] [place], [place] [address]Dr. Farhat Elvis Chloride [Moles/Vol] 106 mmol/L Normal 98-107 [facility] Comment on above: Performed By: #### C MP ####[facility] Hvvixtgzvg4933[address] [place], [place] [address]Dr. Farhat Leal CO2 [Moles/Vol] 27.0 mmol/L Normal 21.0-32.[address] [facility] Comment on above: Performed By: #### C MP ####[facility] Peyfiwsdyk1723[address] [place], [place] [address]Dr. Madelynlorri Leal Creatinine [Mass/Vol] 1.51 mg/dL Critically high 0.70-1.30 [facility] Comment on above: Performed By: #### C MP ####[facility] Oclixoktya[address] [place] [address]Dr. Farhat Elvis EGFR-AF SOMALI 55 mL/min/1.73m2 Critically low >=60 [facility] Comment on above: Performed By: #### C MP ####[facility] Inkmhgiufc53[address] [place] [address]Dr. Farhat Elvis EGFR-NON AF SOMALI 45 mL/min/1.73m2 Critically low >=60 [facility] Comment on above: Performed By: #### C MP ####[facility] Zqitlhbgwf9086[address] [place], [place] [address]Dr. Farhat Leal Globulin (S) [Mass/Vol] 3.2 g/dL Normal [facility] Comment on above: Performed By: #### C MP ####[facility] Uojvvgzsjv3110[address] [place], [place] [address]Dr. Farhat Leal Glucose [Mass/Vol] 165 mg/dL Critically high 74-106 [facility] Comment on above: Performed By: #### C MP ####[facility] Ynncujzzxy36[address] [place], [place] [address]Dr. Farhat Leal Potassium [Moles/Vol] 4.1 mmol/L Normal 3.5-5.1 [facility] Comment on above: Performed By: #### C MP ####[facility] Yvsmfjaxcw35[address] [place], [place] [address]Dr. Farhat Leal Protein [Mass/Vol] 5.7 g/dL Critically low 6.4-8.2 [facility] Comment on above: Performed By: #### C MP ####[facility] Mkulbrtskf[address] [place], [place] [address]Dr. Farhat Leal Sodium [Moles/Vol] 138 mmol/L Normal 136-145 [facility] Comment on above: Performed By: #### C MP ####[facility] Zhekitktmn9033[address] [place], [place] [address]Dr. Farhat Leal Urea nitrogen [Mass/Vol] 51.0 mg/dL Critically high 7.0-18.0 [facility] Comment on above: Performed By: #### C MP ####[facility] [address]tcvwytkw[address] [place] [address]Dr. Farhat Leal Urea nitrogen/Creatinine [Mass ratio] 33.8 mg/mg Normal [facility] Comment on above: Performed By: #### C MP ####[facility] Idmbauuxpg9413[address] [place], [place] [address]Dr. Farhat Leal FK506 (TACROLIMUS) WHOLE BLO ODon 06-15-2022 Tacrolimus (FK506), Blood 16.4 ng/mL Normal 2.0-20.0 [facility] Comment on above: Result Comment: Trou gh (immediately following transplant) 15.0 . Trough (steady state, 2 weeks or more after transplant): 3.0 - 8.0 . Performed by LC-MS/MS technology. Performed By: #### F K506T ####[facility] Tdghfjptiq135[address] [place], [place] [address]Dr. Farhat Leal PROTIMEon 06-15-2022 INR Coag (PPP) [Relative time] 1.64 {INR} Normal [facility] Comment on above: Performed By: #### P T ####[facility] Bjrubihahy033[address] [place], [place] [address]Dr. Farhat Leal INR GUIDELINES SEE BELOW Normal [facility] Comment on above: Result Comment: MALINA RED INR: 2.0 - 3.0 CONDITIONS NOT LISTED BELOW 2.5 - 3.5 FOR PROSTHETIC HEART VALVE REPLACEMENT 2.5 - 3.5 RECURRENT THROMBOSIS Performed By: #### P T ####[facility] Gohjggmixi976[address] [place], [place] [address]Dr. Farhat Leal PT Coag (PPP) [Time] 16.9 s Critically high 9.0-11.6 [facility] Comment on above: Performed By: #### P T ####[facility] Ywlhfpqrmb556[address] [place], [place] [address]Dr. Farhat Leal CBC AUTO DIFFon 06-12-2022 BASO # 0.0 103/ul Normal 0.0-0.1 [facility] Comment on above: Performed By: #### C BC ####[facility] Nucuekozdi70[address] [place] [address]Dr. Farhat Leal Basophils/100 WBC (Bld) 0.4 % Normal 0.2-2.0 [facility] Comment on above: Performed By: #### C BC ####[facility] Qivcylehom37[address] [place], [place] [address]Dr. Farhat Leal EO # 0.4 103/ul Normal 0.0-0.7 [facility] Comment on above: Performed By: #### C BC ####[facility] Zgmdmbwsui3901[address] [place], [place] [address]Dr. Farhat Leal Eosinophils/100 WBC (Bld) 5.4 % Normal 0.9-7.0 [facility] Comment on above: Performed By: #### C BC ####[facility] Nqoryrzkcm4922[address] [place], [place] [address]Dr. Farhat Leal Erythrocyte distribution width (RBC) [Ratio] 14.7 % Normal 11.0-15.0 [facility] Comment on above: Performed By: #### C BC ####[facility] Gpzvmlahkf8813[address] [place], [place] [address]Dr. Farhat Leal Hematocrit (Bld) [Volume fraction] 34.8 % Critically low 42.0-54.0 [facility] Comment on above: Performed By: #### C BC ####[facility] Aetjuwwgmj7276[address] [place], [place] [address]Dr. Farhat Leal Hemoglobin (Bld) [Mass/Vol] 11.7 g/dL Critically low 14.0-18.0 [facility] Comment on above: Performed By: #### C BC ####[facility] Gdemcbldke[address] [place], [place] [address]Dr. Farhat Leal IG # 0.02 10e3/ul Normal 0.00-0.03 [facility] Comment on above: Performed By: #### C BC ####[facility] Boownqqgrp2765[address] [place], [place] [address]Dr. Farhat Leal IG % 0.3 % Normal 0.0-0.5 [facility] Comment on above: Performed By: #### C BC ####[facility] Jycjijlphx9086 [place] [phone]. Farhat Leal LYMPH # 2.5 103/ul Normal 1.2-3.8 [facility] Comment on above: Performed By: #### C BC ####[facility] Seiwxdavtf0801 [place] [phone]. Farhat Leal Lymphocytes/100 WBC (Bld) 36.8 % Normal 20.5-60.0 [facility] Comment on above: Performed By: #### C BC ####[facility] Fnsjoyrfio0897 [place] [address]Dr. Farhat Leal MANUAL DIFF REQ NO Normal [facility] Comment on above: Performed By: #### C BC ####[facility] Mlazlybabe14[address] [place] [phone]. Farhat Leal MCH (RBC) [Entitic mass] 30.9 pg Normal 25.9-34.0 [facility] Comment on above: Performed By: #### C BC ####[facility] Yxkiqmzrbu5490 [place] [phone]. Farhat Leal MCHC (RBC) [Mass/Vol] 33.6 g/dL Normal 29.9-35.2 [facility] Comment on above: Performed By: #### C BC ####[facility] Spavcfwumf[address] [place], [place] [id number]. Farhat Leal MCV (RBC) [Entitic vol] 91.8 fL Normal 80.0-94.0 [facility] Comment on above: Performed By: #### C BC ####[facility] Cepccxtrwg3414 [place] [phone] Leal MONO # 0.8 103/ul Normal 0.3-0.8 [facility] Comment on above: Performed By: #### C BC ####[facility] Gedqcdodcz2775 [place] [address]Dr. Farhat Leal Monocytes/100 WBC (Bld) 11.9 % Normal 1.7-12.0 [facility] Comment on above: Performed By: #### C BC ####[facility] Hverflyrwa2698 [place] [address]Dr. Farhat Leal NEUT # 3.1 103/ul Normal 1.4-6.5 [facility] Comment on above: Performed By: #### C BC ####[facility] Rrlukdvsju4408 [place] [phone]. Farhat Leal Neutrophils/100 WBC (Bld) 45.2 % Normal 43.0-75.0 [facility] Comment on above: Performed By: #### C BC ####[facility] Cjdfvkusfn0287 [place] [address]Dr. Farhat Leal Platelet mean volume (Bld) [Entitic vol] 10.5 fL Normal 9.5-13.5 [facility] Comment on above: Performed By: #### C BC ####[facility] Jsuoxewrmf8266 [place] [address]Dr. Farhat Leal PLT 175 103/ul Normal 150-450 [facility] Comment on above: Performed By: #### C BC ####[facility] Jiinfocbrd750[address] [place], [place] [address]Dr. Farhat Leal RBC 3.79 106/ul Critically low 4.70-6.10 [facility] Comment on above: Performed By: #### C BC ####[facility] Wxqhonmugn7874 [place] [address]Dr. Farhat Leal WBC 6.8 103/ul Normal 4.0-11.0 [facility] Comment on above: Performed By: #### C BC ####[facility] Stezhklszb7426 [place] [phone]. Farhat Leal MAGNESIUMon 06-12-2022 Magnesium [Mass/Vol] 1.6 mg/dL Critically low 1.8-2.4 [facility] Comment on above: Performed By: #### C MP, MG, PHOS ####[facility] Cvlrhzihjy0946 [place] [address]Dr. Farhat Leal PHOSPHORUSon 06-12-2022 Phosphate [Mass/Vol] 3.8 mg/dL Normal 2.6-4.7 [facility] Comment on above: Performed By: #### C MP, MG, PHOS ####[facility] Zapkxjpkxa1863 [place] [address]Dr. Farhat Leal PROF 14(COMP METB)on 023 Albumin [Mass/Vol] 2.6 g/dL Critically low 3.4-5.0 [facility] Comment on above: Performed By: #### C MP, MG, PHOS ####[facility] Tmbtfwqees3369 [place] [address]Dr. Farhat Leal Albumin/Globulin [Mass ratio] 0.8 {ratio} Normal [facility] Comment on above: Performed By: #### C MP, MG, PHOS ####[facility] Uwltfeitne5193 [place] [address]Dr. Farhat Leal ALP [Catalytic activity/Vol] 64 U/L Normal 46-116 [facility] Comment on above: Performed By: #### C MP, MG, PHOS ####[facility] Bcfdwtfwip5794 [place] [address]Dr. Farhat Lael ALT [Catalytic activity/Vol] 18 U/L Normal 16-63 [facility] Comment on above: Performed By: #### C MP, MG, PHOS ####[facility] Pqdsgmfgdo0604 [place] [address]Dr. Farhat Leal Anion gap [Moles/Vol] 12.9 mmol/L Normal [facility] Comment on above: Performed By: #### C MP, MG, PHOS ####[facility] Uhycojvhyf0282 [place] [address]Dr. Farhat Leal AST [Catalytic activity/Vol] 18 U/L Normal 15-37 [facility] Comment on above: Performed By: #### C MP, MG, PHOS ####[facility] Mttdefjxhk8465 [place] [address]Dr. Farhat Leal Bilirubin [Mass/Vol] 0.4 mg/dL Normal 0.2-1.0 [facility] Comment on above: Performed By: #### C MP, MG, PHOS ####[facility] Xbkqvxkbnd0296 [place] [address]Dr. Farhat Leal Calcium [Mass/Vol] 8.7 mg/dL Normal 8.5-10.1 [facility] Comment on above: Performed By: #### C MP, MG, PHOS ####[facility] Bgyinmmbqp59[address] [place], [place] [address]Dr. Farhat Leal Chloride [Moles/Vol] 105 mmol/L Normal 98-107 [facility] Comment on above: Performed By: #### C MP, MG, PHOS ####[facility] Moizjwhfsm254[address] [place], [place] [address]Dr. Farhat Leal CO2 [Moles/Vol] 27.9 mmol/L Normal 21.0-32.0 [facility] Comment on above: Performed By: #### C MP, MG, PHOS ####[facility] Gsmvkclslz14[address] [place], [place] [address]Dr. Farhat Leal Creatinine [Mass/Vol] 1.53 mg/dL Critically high 0.70-1.30 [facility] Comment on above: Performed By: #### C MP, MG, PHOS ####[facility] Bfyhtimnlr59[address] [place], [place] [address]Dr. Farhat Leal EGFR-AF SOMALI 54 mL/min/1.73m2 Critically low >=60 [facility] Comment on above: Performed By: #### C MP, MG, PHOS ####[facility] Fbthyupbwb016[address] [place], [place] [address]Dr. Farhat Leal EGFR-NON AF SOMALI 44 mL/min/1.73m2 Critically low >=60 [facility] Comment on above: Performed By: #### C MP, MG, PHOS ####[facility] Ouxatolhgr[address] [place], [place] [address]Dr. Farhat Leal Globulin (S) [Mass/Vol] 3.4 g/dL Normal [facility] Comment on above: Performed By: #### C MP, MG, PHOS ####[facility] Ghdvyskvrr2485 [place] [address]Dr. Farhat Leal Glucose [Mass/Vol] 179 mg/dL Critically high 74-106 [facility] Comment on above: Performed By: #### C MP, MG, PHOS ####[facility] Nipvefjgtu5490 [place] [address]Dr. Farhat Leal Potassium [Moles/Vol] 3.8 mmol/L Normal 3.5-5.1 [facility] Comment on above: Performed By: #### C MP, MG, PHOS ####[facility] Aidkanotmp3150 [place] [address]Dr. Farhat Leal Protein [Mass/Vol] 6.0 g/dL Critically low 6.4-8.2 [facility] Comment on above: Performed By: #### C MP, MG, PHOS ####[facility] Ylodrwkqvw4533 [place] [address]Dr. Farhat eLal Sodium [Moles/Vol] 142 mmol/L Normal 136-145 [facility] Comment on above: Performed By: #### C MP, MG, PHOS ####[facility] Xfdcwcfenk0197 [place] [address]Dr. Farhat Leal Urea nitrogen [Mass/Vol] 56.0 mg/dL Critically high 7.0-18.0 [facility] Comment on above: Performed By: #### C MP, MG, PHOS ####[facility] Dfdranzdkx7622[address] [place], [place] [address]Dr. Farhat Leal Urea nitrogen/Creatinine [Mass ratio] 36.6 mg/mg Normal [facility] Comment on above: Performed By: #### C MP, MG, PHOS ####[facility] Ykfeiwdenj6239 [place] [address]Dr. Farhat Leal FK506 (TACROLIMUS) WHOLE BLO ODon 06-08-2022 Tacrolimus (FK506), Blood 13.2 ng/mL Normal 2.0-20.0 [facility] Comment on above: Result Comment: Trou gh (immediately following transplant) 15.0 . Trough (steady state, 2 weeks or more after transplant): 3.0 - 8.0 . Performed by LC-MS/MS technology. Performed By: #### F K506T ####[facility] Uupeotjnpt4115 [place] [address]Dr. Farhat Elvis CBC AUTO DIFFon 06-05-2022 BASO # 0.1 103/ul Normal 0.0-0.1 [facility] Comment on above: Performed By: #### C BC ####[facility] Bbeiptxfwh7[address] [place], [place] [address]DrSkylar Leal Basophils/100 WBC (Bld) 0.8 % Normal 0.2-2.0 [facility] Comment on above: Performed By: #### C BC ####[facility] Erjukmblqh9665[address] [place], [place] [address]Dr. Farhat Leal EO # 0.3 103/ul Normal 0.0-0.7 [facility] Comment on above: Performed By: #### C BC ####[facility] Acvoqlvwse2484[address] [place], [place] [address]Dr. Farhat Leal Eosinophils/100 WBC (Bld) 4.7 % Normal 0.9-7.0 [facility] Comment on above: Performed By: #### C BC ####[facility] Osgeuljuxp0938[address] [place], [place] [address]Dr. Farhat Leal Erythrocyte distribution width (RBC) [Ratio] 15.1 % Critically high 11.0-15.0 [facility] Comment on above: Performed By: #### C BC ####[facility] Hjisqtzexr15[address] [place], [place] [address]Dr. Farhat Leal Hematocrit (Bld) [Volume fraction] 35.5 % Critically low 42.0-54.0 [facility] Comment on above: Performed By: #### C BC ####[facility] Uuklkpinsn3367[address] [place], [place] [address]Dr. Farhat Leal Hemoglobin (Bld) [Mass/Vol] 11.7 g/dL Critically low 14.0-18.0 [facility] Comment on above: Performed By: #### C BC ####[facility] Lqravfwsga6364[address] [place], [place] [address]Dr. Farhat Leal IG # 0.01 10e3/ul Normal 0.00-0.03 [facility] Comment on above: Performed By: #### C BC ####[facility] Bvqkblmesa7216 [place] [address]DrSkylar Leal IG % 0.2 % Normal 0.0-0.5 [facility] Comment on above: Performed By: #### C BC ####[facility] Mqnixdiggi5323 [place] [address]DrSkylar Leal LYMPH # 2.1 103/ul Normal 1.2-3.8 [facility] Comment on above: Performed By: #### C BC ####[facility] Lngtxqobbf7078 [place] [address]DrSkylar Leal Lymphocytes/100 WBC (Bld) 34.5 % Normal 20.5-60.0 [facility] Comment on above: Performed By: #### C BC ####[facility] Zxuspsislo2937[address] [place], [place] [address]DrSkylar Leal MANUAL DIFF REQ NO Normal [facility] Comment on above: Performed By: #### C BC ####[facility] Ejsiloyymt[address] [place], [place] [address]DrSkylar Leal MCH (RBC) [Entitic mass] 30.6 pg Normal 25.9-34.0 [facility] Comment on above: Performed By: #### C BC ####[facility] Lwmvgmzwin6254 [place] [address]DrSkylar Leal MCHC (RBC) [Mass/Vol] 33.0 g/dL Normal 29.9-35.2 [facility] Comment on above: Performed By: #### C BC ####[facility] Gedweuxksm1977 [place] [address]DrSkylar Leal MCV (RBC) [Entitic vol] 92.9 fL Normal 80.0-94.0 [facility] Comment on above: Performed By: #### C BC ####[facility] Ndsymbkwaf42[address] [place], [place] [address]DrSkylar Leal MONO # 0.7 103/ul Normal 0.3-0.8 [facility] Comment on above: Performed By: #### C BC ####[facility] Bbagmknblp5505 [place] [address]Dr. Farhat Leal Monocytes/100 WBC (Bld) 11.4 % Normal 1.7-12.0 [facility] Comment on above: Performed By: #### C BC ####[facility] Eoisjwewsi0554 [place] [address]Dr. Farhat Leal NEUT # 2.9 103/ul Normal 1.4-6.5 [facility] Comment on above: Performed By: #### C BC ####[facility] Mckicfvygc7902 [place] [address]Dr. Farhat Leal Neutrophils/100 WBC (Bld) 48.4 % Normal 43.0-75.0 [facility] Comment on above: Performed By: #### C BC ####[facility] Oropsfwfkx7270[address] [place], [place] [address]Dr. Farhat Leal Platelet mean volume (Bld) [Entitic vol] 10.7 fL Normal 9.5-13.5 [facility] Comment on above: Performed By: #### C BC ####[facility] Enbmebcsvf2500 [place] [address]Dr. Farhat Leal PLT 185 103/ul Normal 150-450 [facility] Comment on above: Performed By: #### C BC ####[facility] Reqrezhwfc1490 [place] [address]Dr. Farhat Leal RBC 3.82 106/ul Critically low 4.70-6.10 [facility] Comment on above: Performed By: #### C BC ####[facility] Kmywpuydwz4792 [place] [phone]. Farhat Leal WBC 6.0 103/ul Normal 4.0-11.0 [facility] Comment on above: Performed By: #### C BC ####[facility] Mhxrwckmsz9041 [place] [address]Dr. Farhat Leal MAGNESIUMon 06-05-2022 Magnesium [Mass/Vol] 1.9 mg/dL Normal 1.8-2.4 [facility] Comment on above: Performed By: #### P HOS, MG ####[facility] Zuvwyevqax5827 [place] [address]Dr. Farhat Leal PHOSPHORUSon 06-05-2022 Phosphate [Mass/Vol] 4.4 mg/dL Normal 2.6-4.7 [facility] Comment on above: Performed By: #### P HOS, MG ####[facility] Twcxmcnblz4104 [place] [address]DrSkylar Leal PROTIMEon 06-05-2022 INR Coag (PPP) [Relative time] 2.16 {INR} Normal [facility] Comment on above: Performed By: #### P T ####[facility] Xqroogqhtr8[address] [place], [place] [address]DrSkylar Leal INR GUIDELINES SEE BELOW Normal [facility] Comment on above: Result Comment: MALINA RED INR: 2.0 - 3.0 CONDITIONS NOT LISTED BELOW 2.5 - 3.5 FOR PROSTHETIC HEART VALVE REPLACEMENT 2.5 - 3.5 RECURRENT THROMBOSIS Performed By: #### P T ####[facility] Qbyaeypofu34[address] [place], [place] [address]DrSkylar Leal PT Coag (PPP) [Time] 21.9 s Critically high 9.0-11.6 [facility] Comment on above: Performed By: #### P T ####[facility] Bpaoafifrw036[address] [place], [place] [address]DrSkylar Leal FK506 (TACROLIMUS) WHOLE BLO ODon 06-01-2022 Tacrolimus (FK506), Blood 26.4 ng/mL Invalid Interpretation Code 2.0-20.0 [facility] Comment on above: Result Comment: Trou gh (immediately following transplant) 15.0 . Trough (steady state, 2 weeks or more after transplant): 3.0 - 8.0 . Performed by LC-MS/MS technology.Patient drug level exceeds published reference range. Evaluateclinically for signs of potential toxicity. Performed By: #### F K506T ####[facility] Flhqierxzh9[address] [place], [place] [address]DrSkylar Leal CBC AUTO DIFFon 05-29-2022 BASO # 0.0 103/ul Normal 0.0-0.1 [facility] Comment on above: Performed By: #### C BC ####[facility] Upxjlqihro0495 [place] [address]Dr. Farhat Leal Basophils/100 WBC (Bld) 0.6 % Normal 0.2-2.0 [facility] Comment on above: Performed By: #### C BC ####[facility] Owdsyuzfah8738 [place] [address]Dr. Farhat Leal EO # 0.3 103/ul Normal 0.0-0.7 [facility] Comment on above: Performed By: #### C BC ####[facility] Icbtezotcf1911[address] [place], [place] [address]Dr. Farhat Leal Eosinophils/100 WBC (Bld) 4.7 % Normal 0.9-7.0 [facility] Comment on above: Performed By: #### C BC ####[facility] Evbxppxddo6227[address] [place], [place] [address]Dr. Farhat Leal Erythrocyte distribution width (RBC) [Ratio] 15.3 % Critically high 11.0-15.0 [facility] Comment on above: Performed By: #### C BC ####[facility] Siccatjxik05[address] [place], [place] [address]Dr. Farhat Leal Hematocrit (Bld) [Volume fraction] 36.6 % Critically low 42.0-54.0 [facility] Comment on above: Performed By: #### C BC ####[facility] Bwyfnqalwz[address] [place], [place] [address]Dr. Farhat Leal Hemoglobin (Bld) [Mass/Vol] 12.3 g/dL Critically low 14.0-18.0 [facility] Comment on above: Performed By: #### C BC ####[facility] Wsfbwyptyd7[address] [place], [place] [address]Dr. Farhat Leal IG # 0.02 10e3/ul Normal 0.00-0.03 [facility] Comment on above: Performed By: #### C BC ####[facility] Sulnzrqvxv4984 [place] [phone]. Farhat Leal IG % 0.3 % Normal 0.0-0.5 [facility] Comment on above: Performed By: #### C BC ####[facility] Kffovbaqve5977 [place] [address]Dr. Farhat Leal LYMPH # 2.8 103/ul Normal 1.2-3.8 [facility] Comment on above: Performed By: #### C BC ####[facility] Uiecfryoeo0183 [place] [phone]. Farhat Elvis Lymphocytes/100 WBC (Bld) 44.4 % Normal 20.5-60.0 [facility] Comment on above: Performed By: #### C BC ####[facility] Bqnbbgflka6031 [place] [phone]. Farhat Elvis MANUAL DIFF REQ NO Normal [facility] Comment on above: Performed By: #### C BC ####[facility] Txliolgpxj9231 [place] [phone]. Farhat Leal MCH (RBC) [Entitic mass] 30.4 pg Normal 25.9-34.0 [facility] Comment on above: Performed By: #### C BC ####[facility] Wvlymtyhre1623 [place] [address]Dr. Farhat Leal MCHC (RBC) [Mass/Vol] 33.6 g/dL Normal 29.9-35.2 [facility] Comment on above: Performed By: #### C BC ####[facility] Ujlliepogx0684 [place] [address]Dr. Farhat Leal MCV (RBC) [Entitic vol] 90.4 fL Normal 80.0-94.0 [facility] Comment on above: Performed By: #### C BC ####[facility] Mjdnijigvp0293 [place] [address]Dr. Farhat Elvis MONO # 0.7 103/ul Normal 0.3-0.8 [facility] Comment on above: Performed By: #### C BC ####[facility] Pcdicoebwd3947 [place] [address]Dr. Farhat Leal Monocytes/100 WBC (Bld) 10.7 % Normal 1.7-12.0 [facility] Comment on above: Performed By: #### C BC ####[facility] Orqvathizh1069 [place] [address]Dr. Farhat Leal NEUT # 2.5 103/ul Normal 1.4-6.5 [facility] Comment on above: Performed By: #### C BC ####[facility] Xlettvztlo1276 [place] [address]Dr. Farhat Leal Neutrophils/100 WBC (Bld) 39.3 % Critically low 43.0-75.0 [facility] Comment on above: Performed By: #### C BC ####[facility] Gbzfswpybk7298 [place] [address]Dr. Farhat Leal Platelet mean volume (Bld) [Entitic vol] 10.5 fL Normal 9.5-13.5 [facility] Comment on above: Performed By: #### C BC ####[facility] Gzdwbetdfh8188 [place] [address]Dr. Farhat Leal PLT 190 103/ul Normal 150-450 [facility] Comment on above: Performed By: #### C BC ####[facility] Pdzukwnmol8401 [place] [address]Dr. Farhat Leal RBC 4.05 106/ul Critically low 4.70-6.10 [facility] Comment on above: Performed By: #### C BC ####[facility] Zkwcziywtn7841 [place] [phone]. Farhat Leal WBC 6.4 103/ul Normal 4.0-11.0 [facility] Comment on above: Performed By: #### C BC ####[facility] Jrzlpxoqvq0736 [place] [address]Dr. Farhat Elvis PROF 14(COMP METB)on 023 Albumin [Mass/Vol] 2.5 g/dL Critically low 3.4-5.0 [facility] Comment on above: Performed By: #### C MP ####[facility] Qjseuysnsj232[address] [place] [address]Dr. Farhat Leal Albumin/Globulin [Mass ratio] 0.8 {ratio} Normal [facility] Comment on above: Performed By: #### C MP ####[facility] Wwgoqqvsfj5508 [place] [address]Dr. Farhat Leal ALP [Catalytic activity/Vol] 61 U/L Normal 46-116 [facility] Comment on above: Performed By: #### C MP ####[facility] Bsibrvavnp1323 [place] [address]Dr. Farhat Leal ALT [Catalytic activity/Vol] 16 U/L Normal 16-63 [facility] Comment on above: Performed By: #### C MP ####[facility] Fnvffuopuo[address] [place], [place] [address]Dr. Farhat Leal Anion gap [Moles/Vol] 12.3 mmol/L Normal [facility] Comment on above: Performed By: #### C MP ####[facility] Rchqyybljf37[address] [place], [place] [address]Dr. Farhat Leal AST [Catalytic activity/Vol] 18 U/L Normal 15-37 [facility] Comment on above: Performed By: #### C MP ####[facility] Tqaunmpasv7564[address] [place], [place] [address]Dr. Farhat Leal Bilirubin [Mass/Vol] 0.5 mg/dL Normal 0.2-1.0 [facility] Comment on above: Performed By: #### C MP ####[facility] Zaflfgycec68[address] [place], [place] [address]Dr. Farhat Elvis Calcium [Mass/Vol] 8.6 mg/dL Normal 8.5-10.1 [facility] Comment on above: Performed By: #### C MP ####[facility] Yjogrlrewk56[address] [place], [place] [address]Dr. Farhat Elvis Chloride [Moles/Vol] 105 mmol/L Normal 98-107 [facility] Comment on above: Performed By: #### C MP ####[facility] Gvtkytkbqz9546[address] [place], [place] [address]Dr. Farhat Leal CO2 [Moles/Vol] 28.6 mmol/L Normal 21.0-32.0 [facility] Comment on above: Performed By: #### C MP ####[facility] Nraooqomix75[address] [place] [address]Dr. Farhat Leal Creatinine [Mass/Vol] 1.47 mg/dL Critically high 0.70-1.30 [facility] Comment on above: Performed By: #### C MP ####[facility] Gdgecesqgs1162 [place] [address]Dr. Farhat Leal EGFR-AF SOMALI 56 mL/min/1.73m2 Critically low >=60 [facility] Comment on above: Performed By: #### C MP ####[facility] Eswdvkkvsp6947 [place] [address]Dr. Farhat Leal EGFR-NON AF SOMALI 46 mL/min/1.73m2 Critically low >=60 [facility] Comment on above: Performed By: #### C MP ####[facility] Jlkcdhebzo4903 [place] [address]Dr. Farhat Elvis Globulin (S) [Mass/Vol] 3.3 g/dL Normal [facility] Comment on above: Performed By: #### C MP ####[facility] Prucmvduec9386 [place] [address]Dr. Farhat Leal Glucose [Mass/Vol] 164 mg/dL Critically high 74-106 [facility] Comment on above: Performed By: #### C MP ####[facility] Yfisxwocgv2360 [place] [address]Dr. Farhat Elvis Potassium [Moles/Vol] 3.9 mmol/L Normal 3.5-5.1 [facility] Comment on above: Performed By: #### C MP ####[facility] Vwlwafluke3885 [place] [address]Dr. Farhat Elvis Protein [Mass/Vol] 5.8 g/dL Critically low 6.4-8.2 [facility] Comment on above: Performed By: #### C MP ####[facility] Hmftrfcoeq5715 [place] [address]Dr. Farhat Leal Sodium [Moles/Vol] 142 mmol/L Normal 136-145 [facility] Comment on above: Performed By: #### C MP ####[facility] Bokwsmbtcz7534 [place] [address]Dr. Farhat Leal Urea nitrogen [Mass/Vol] 53.0 mg/dL Critically high 7.0-18.0 [facility] Comment on above: Performed By: #### C MP ####[facility] Rdioikdpnz1667[address] [place], [place] [address]Dr. Farhat Leal Urea nitrogen/Creatinine [Mass ratio] 36.1 mg/mg Normal [facility] Comment on above: Performed By: #### C MP ####[facility] Kecdoxccvh1295 [place] [address]Dr. Farhat Leal PROTIMEon 05-29-2022 INR Coag (PPP) [Relative time] 2.41 {INR} Normal [facility] Comment on above: Performed By: #### P T ####[facility] Kiviekplxl403[address] [place], [place] [address]Dr. Farhat Leal INR GUIDELINES SEE BELOW Normal [facility] Comment on above: Result Comment: MALINA RED INR: 2.0 - 3.0 CONDITIONS NOT LISTED BELOW 2.5 - 3.5 FOR PROSTHETIC HEART VALVE REPLACEMENT 2.5 - 3.5 RECURRENT THROMBOSIS Performed By: #### P T ####[facility] Zjumeqxydw6296[address] [place], [place] [address]Dr. Farhat Leal PT Coag (PPP) [Time] 24.3 s Critically high 9.0-11.6 [facility] Comment on above: Performed By: #### P T ####[facility] Plrzguxexg1969[address] [place], [place] [address]Dr. Farhat Leal FK506 (TACROLIMUS) WHOLE BLO ODon 05-25-2022 Tacrolimus (FK506), Blood 5.1 ng/mL Normal 2.0-20.0 [facility] Comment on above: Result Comment: Trou gh (immediately following transplant) 15.0 . Trough (steady state, 2 weeks or more after transplant): 3.0 - 8.0 . Performed by LC-MS/MS technology. Performed By: #### F K506T ####[facility] Kifegdrhrt1689 [place] [address]Dr. Farhat Leal CBC AUTO DIFFon 05-22-2022 BASO # 0.0 103/ul Normal 0.0-0.1 [facility] Comment on above: Performed By: #### C BC ####[facility] Thgflghxoz8810[address] [place], [place] [address]Dr. Farhat Elvis Basophils/100 WBC (Bld) 0.5 % Normal 0.2-2.0 [facility] Comment on above: Performed By: #### C BC ####[facility] Oxbthggwnl033[address] [place], [place] [address]Dr. Farhat Leal EO # 0.2 103/ul Normal 0.0-0.7 [facility] Comment on above: Performed By: #### C BC ####[facility] Azjpxisucp1384[address] [place], [place] [address]Dr. Madelynlorri Leal Eosinophils/100 WBC (Bld) 4.0 % Normal 0.9-7.0 [facility] Comment on above: Performed By: #### C BC ####[facility] Hzrpjqlvps0109[address] [place], [place] [address]Dr. Farhat Leal Erythrocyte distribution width (RBC) [Ratio] 15.5 % Critically high 11.0-15.0 [facility] Comment on above: Performed By: #### C BC ####[facility] Wmujfbmecg6404[address] [place], [place] [address]Dr. Farhat Leal Hematocrit (Bld) [Volume fraction] 34.1 % Critically low 42.0-54.0 [facility] Comment on above: Performed By: #### C BC ####[facility] Seisgwdqsc3850[address] [place], [place] [address]Dr. Farhat Leal Hemoglobin (Bld) [Mass/Vol] 11.3 g/dL Critically low 14.0-18.0 [facility] Comment on above: Performed By: #### C BC ####[facility] Nkstfzrmrh[address] [place], [place] [id number]. Farhat Leal IG # 0.03 10e3/ul Normal 0.00-0.03 [facility] Comment on above: Performed By: #### C BC ####[facility] Irvdmueshr0805 [place] [address]Dr. Farhat Leal IG % 0.5 % Normal 0.0-0.5 [facility] Comment on above: Performed By: #### C BC ####[facility] Ildzkgcvwi4377 [place] [address]DrSkylar Leal LYMPH # 2.1 103/ul Normal 1.2-3.8 [facility] Comment on above: Performed By: #### C BC ####[facility] Fgwnmtqzvg43[address] [place], [place] [address]DrSkylar Leal Lymphocytes/100 WBC (Bld) 34.6 % Normal 20.5-60.0 [facility] Comment on above: Performed By: #### C BC ####[facility] Vuubekcdsi8796[address] [place], [place] [address]DrSkylar Leal MANUAL DIFF REQ NO Normal [facility] Comment on above: Performed By: #### C BC ####[facility] Prnbltnirq0747[address] [place], [place] [address]DrSkylar Leal MCH (RBC) [Entitic mass] 30.3 pg Normal 25.9-34.0 [facility] Comment on above: Performed By: #### C BC ####[facility] Jurojlqgkf013[address] [place], [place] [address]DrSkylar Leal MCHC (RBC) [Mass/Vol] 33.1 g/dL Normal 29.9-35.2 [facility] Comment on above: Performed By: #### C BC ####[facility] Udntvgoeum8595[address] [place], [place] [address]DrSkylar eLal MCV (RBC) [Entitic vol] 91.4 fL Normal 80.0-94.0 [facility] Comment on above: Performed By: #### C BC ####[facility] Eqsuxllogx630965 [address] [place], [place] [address]DrSkylar Leal MONO # 0.7 103/ul Normal 0.3-0.8 [facility] Comment on above: Performed By: #### C BC ####[facility] Dzqhwnpwfj1078 [place] [id number]. Farhat Leal Monocytes/100 WBC (Bld) 11.6 % Normal 1.7-12.0 [facility] Comment on above: Performed By: #### C BC ####[facility] Vyhcncctbg0392 [place] [address]Dr. Farhat Leal NEUT # 2.9 103/ul Normal 1.4-6.5 [facility] Comment on above: Performed By: #### C BC ####[facility] Tvvlosljvt4672 [place] [address]DrSkylar Farhat Leal Neutrophils/100 WBC (Bld) 48.8 % Normal 43.0-75.0 [facility] Comment on above: Performed By: #### C BC ####[facility] Hlsqrhalkc[address] [place], [place] [address]DrSkylar Farhat Leal Platelet mean volume (Bld) [Entitic vol] 10.9 fL Normal 9.5-13.5 [facility] Comment on above: Performed By: #### C BC ####[facility] Tgroyrtaqt4788[address] [place], [place] [address]Dr. Farhat Leal PLT 186 103/ul Normal 150-450 [facility] Comment on above: Performed By: #### C BC ####[facility] Hxkssifumn3938 [place] [id number] Farhat Leal RBC 3.73 106/ul Critically low 4.70-6.10 [facility] Comment on above: Performed By: #### C BC ####[facility] Agbiswsdtv7056 [place] [phone] Farhat Leal WBC 6.0 103/ul Normal 4.0-11.0 [facility] Comment on above: Performed By: #### C BC ####[facility] Achlnvnhmg614[address] [place], [place] [address]DrSkylar Leal PROF 14(COMP METB)on 023 Albumin [Mass/Vol] 2.7 g/dL Critically low 3.4-5.0 [facility] Comment on above: Performed By: #### C MP ####[facility] Tjncwzutjj8941 [place] [address]Dr. Farhat Leal Albumin/Globulin [Mass ratio] 0.8 {ratio} Normal [facility] Comment on above: Performed By: #### C MP ####[facility] Wclcuxbpma3650[address] [place], [place] [address]Dr. Farhat Leal ALP [Catalytic activity/Vol] 60 U/L Normal 46-116 [facility] Comment on above: Performed By: #### C MP ####[facility] Jldykcsjpd0917[address] [place], [place] [address]Dr. Farhat Leal ALT [Catalytic activity/Vol] 17 U/L Normal 16-63 [facility] Comment on above: Performed By: #### C MP ####[facility] Moqdecayhm5287[address] [place], [place] [address]Dr. Farhat Leal Anion gap [Moles/Vol] 9.6 mmol/L Normal [facility] Comment on above: Performed By: #### C MP ####[facility] Pbyrbthpou170[address] [place], [place] [address]Dr. Farhat Leal AST [Catalytic activity/Vol] 14 U/L Critically low 15-37 [facility] Comment on above: Performed By: #### C MP ####[facility] Lbtsjfsrhp360[address] [place], [place] [address]Dr. Farhat Leal Bilirubin [Mass/Vol] 0.5 mg/dL Normal 0.2-1.0 [facility] Comment on above: Performed By: #### C MP ####[facility] Tfkiuvnhfg2687[address] [place], [place] [address]Dr. Farhat Leal Calcium [Mass/Vol] 8.4 mg/dL Critically low 8.5-10.1 [facility] Comment on above: Performed By: #### C MP ####[facility] Hmdftfsavh9378[address] [place], [place] [address]Dr. Farhat Leal Chloride [Moles/Vol] 104 mmol/L Normal 98-107 [facility] Comment on above: Performed By: #### C MP ####[facility] Wwabvbxzzf8380 [place] [address]Dr. Farhat Leal CO2 [Moles/Vol] 27.2 mmol/L Normal 21.0-32.0 [facility] Comment on above: Performed By: #### C MP ####[facility] Daqpizgbfd5096 [place] [address]Dr. Farhat Elvis Creatinine [Mass/Vol] 1.24 mg/dL Normal 0.70-1.30 [facility] Comment on above: Performed By: #### C MP ####[facility] Iecrhazykw7920[address] [place], [place] [address]Dr. Farhat Elvis EGFR-AF SOMALI >60 Normal >=60 [facility] Comment on above: Performed By: #### C MP ####[facility] Eoftreckqd3749 [place] [address]Dr. Farhat Elvis EGFR-NON AF SOMALI 57 mL/min/1.73m2 Critically low >=60 [facility] Comment on above: Performed By: #### C MP ####[facility] Eypfivylsk9359 [place] [address]Dr. Farhat Elvis Globulin (S) [Mass/Vol] 3.3 g/dL Normal [facility] Comment on above: Performed By: #### C MP ####[facility] Znxvssbcbw4834 [place] [address]Dr. Farhat Elvis Glucose [Mass/Vol] 275 mg/dL Critically high 74-106 [facility] Comment on above: Performed By: #### C MP ####[facility] Wwxjrwpkze4208 [place] [address]Dr. Farhat Elvis Potassium [Moles/Vol] 3.8 mmol/L Normal 3.5-5.1 [facility] Comment on above: Performed By: #### C MP ####[facility] Nsaenpxavt2185 [place] [address]Dr. Madelynlorri Leal Protein [Mass/Vol] 6.0 g/dL Critically low 6.4-8.2 [facility] Comment on above: Performed By: #### C MP ####[facility] Lpouptpqsj6363 [place] [address]Dr. Farhat Leal Sodium [Moles/Vol] 137 mmol/L Normal 136-145 [facility] Comment on above: Performed By: #### C MP ####[facility] Ispyuerzqu2470[address] [place], [place] [address]Dr. Farhat Leal Urea nitrogen [Mass/Vol] 54.0 mg/dL Critically high 7.0-18.0 [facility] Comment on above: Performed By: #### C MP ####[facility] Xrvnzupudq0778[address] [place], [place] [address]Dr. Farhat Leal Urea nitrogen/Creatinine [Mass ratio] 43.5 mg/mg Normal [facility] Comment on above: Performed By: #### C MP ####[facility] Ebhxzriedo814[address] [place], [place] [address]Dr. Farhat Leal PROTIMEon 05-22-2022 INR Coag (PPP) [Relative time] 2.27 {INR} Normal [facility] Comment on above: Performed By: #### P T ####[facility] Gtmohdlmai8825[address] [place], [place] [address]Dr. Farhat Leal INR GUIDELINES SEE BELOW Normal [facility] Comment on above: Result Comment: MALINA RED INR: 2.0 - 3.0 CONDITIONS NOT LISTED BELOW 2.5 - 3.5 FOR PROSTHETIC HEART VALVE REPLACEMENT 2.5 - 3.5 RECURRENT THROMBOSIS Performed By: #### P T ####[facility] Dagqbwpjhr578[address] [place], [place] [address]Dr. Farhat Leal PT Coag (PPP) [Time] 23.0 s Critically high 9.0-11.6 [facility] Comment on above: Performed By: #### P T ####[facility] Pppxnujdny8114[address] [place], [place] [address]Dr. Farhat Leal FK506 (TACROLIMUS) WHOLE BLO ODon 05-19-2022 Tacrolimus (FK506), Blood 7.8 ng/mL Normal 2.0-20.0 [facility] Comment on above: Result Comment: Trou gh (immediately following transplant) 15.0 . Trough (steady state, 2 weeks or more after transplant): 3.0 - 8.0 . Performed by LC-MS/MS technology. Performed By: #### F K506T ####[facility] Xuyhxadzqw0116[address] [place], [place] [address]Dr. Farhat Leal CBC AUTO DIFFon 05-15-2022 BASO # 0.0 103/ul Normal 0.0-0.1 [facility] Comment on above: Performed By: #### C BC ####[facility] Miytobzfnz5756[address] [place], [place] [address]Dr. Farhat Leal Basophils/100 WBC (Bld) 0.4 % Normal 0.2-2.0 [facility] Comment on above: Performed By: #### C BC ####[facility] Rzdpkjmwpa5154[address] [place], [place] [address]Dr. Farhat Leal EO # 0.2 103/ul Normal 0.0-0.7 [facility] Comment on above: Performed By: #### C BC ####[facility] Qatglrvdtq1284[address] [place], [place] [address]Dr. Farhat Leal Eosinophils/100 WBC (Bld) 3.0 % Normal 0.9-7.0 [facility] Comment on above: Performed By: #### C BC ####[facility] Ntvycsnbbo546[address] [place], [place] [address]Dr. Farhat Leal Erythrocyte distribution width (RBC) [Ratio] 15.7 % Critically high 11.0-15.0 [facility] Comment on above: Performed By: #### C BC ####[facility] Siagytyrwz4790[address] [place], [place] [address]Dr. Farhat Leal Hematocrit (Bld) [Volume fraction] 36.8 % Critically low 42.0-54.0 [facility] Comment on above: Performed By: #### C BC ####[facility] Nfpnojdiyk6676[address] [place], [place] [address]Dr. Farhat Leal Hemoglobin (Bld) [Mass/Vol] 12.4 g/dL Critically low 14.0-18.0 [facility] Comment on above: Performed By: #### C BC ####[facility] Lsxkpzlecc0524 [place] [address]Dr. Farhat Leal IG # 0.01 10e3/ul Normal 0.00-0.03 [facility] Comment on above: Performed By: #### C BC ####[facility] Pohqkfbfdk9126 [place] [address]Dr. Farhat Leal IG % 0.1 % Normal 0.0-0.5 [facility] Comment on above: Performed By: #### C BC ####[facility] Snpyqgxdvb3988 [place] [address]Dr. Farhat Leal LYMPH # 2.4 103/ul Normal 1.2-3.8 [facility] Comment on above: Performed By: #### C BC ####[facility] Vhaowtptge6837 [place] [address]DrSkylar Leal Lymphocytes/100 WBC (Bld) 35.6 % Normal 20.5-60.0 [facility] Comment on above: Performed By: #### C BC ####[facility] Zzqwukxdrh6176 [place] [address]DrSkylar Leal MANUAL DIFF REQ NO Normal [facility] Comment on above: Performed By: #### C BC ####[facility] Nwfugmlyne9582 [place] [address]Dr. Farhat Leal MCH (RBC) [Entitic mass] 30.1 pg Normal 25.9-34.0 [facility] Comment on above: Performed By: #### C BC ####[facility] Qqjnmzjdbo6386 [place] [address]Dr. Farhat Leal MCHC (RBC) [Mass/Vol] 33.7 g/dL Normal 29.9-35.2 [facility] Comment on above: Performed By: #### C BC ####[facility] Nhclzmmqom2044 [place] [address]Dr. Farhat Leal MCV (RBC) [Entitic vol] 89.3 fL Normal 80.0-94.0 [facility] Comment on above: Performed By: #### C BC ####[facility] Oxqaocmxzg6350 [place] [id number]. Farhat Leal MONO # 0.7 103/ul Normal 0.3-0.8 [facility] Comment on above: Performed By: #### C BC ####[facility] Gdhcpkktaa3015 [place] [phone]. Farhat Leal Monocytes/100 WBC (Bld) 10.8 % Normal 1.7-12.0 [facility] Comment on above: Performed By: #### C BC ####[facility] Ijbanomnug0916 [place] [address]Dr. Farhat Leal NEUT # 3.4 103/ul Normal 1.4-6.5 [facility] Comment on above: Performed By: #### C BC ####[facility] Jxvkplaqfd5696 [place] [address]Dr. Farhat Leal Neutrophils/100 WBC (Bld) 50.1 % Normal 43.0-75.0 [facility] Comment on above: Performed By: #### C BC ####[facility] Itdsbyebsl6408 [place] [address]Dr. Farhat Leal Platelet mean volume (Bld) [Entitic vol] 10.2 fL Normal 9.5-13.5 [facility] Comment on above: Performed By: #### C BC ####[facility] Hiwcaxqusc6100 [place] [address]Dr. Farhat Leal PLT 190 103/ul Normal 150-450 [facility] Comment on above: Performed By: #### C BC ####[facility] Xwheslgruh7896 [place] [address]Dr. Farhat Leal RBC 4.12 106/ul Critically low 4.70-6.10 [facility] Comment on above: Performed By: #### C BC ####[facility] Jrmtwzjuku1382 [place] [id number]. Farhat Leal WBC 6.8 103/ul Normal 4.0-11.0 [facility] Comment on above: Performed By: #### C BC ####[facility] Fniqkzynrm0251 [place] [address]Dr. Farhat Leal PROF 14(COMP METB)on 023 Albumin [Mass/Vol] 2.8 g/dL Critically low 3.4-5.0 [facility] Comment on above: Performed By: #### C MP ####[facility] Suzfdyslvz0412 [place] [address]Dr. Farhat Leal Albumin/Globulin [Mass ratio] 0.9 {ratio} Normal [facility] Comment on above: Performed By: #### C MP ####[facility] Xvhdnvajtm7956 [place] [address]Dr. Farhat Leal ALP [Catalytic activity/Vol] 66 U/L Normal 46-116 [facility] Comment on above: Performed By: #### C MP ####[facility] Srhpevydoo[address] [place], [place] [address]Dr. Farhat Leal ALT [Catalytic activity/Vol] 15 U/L Critically low 16-63 [facility] Comment on above: Performed By: #### C MP ####[facility] Rvqntlpowr96[address] [place], [place] [address]Dr. Farhat Leal Anion gap [Moles/Vol] 11.1 mmol/L Normal [facility] Comment on above: Performed By: #### C MP ####[facility] Hvtbyhcugo9540[address] [place], [place] [address]Dr. Farhat Leal AST [Catalytic activity/Vol] 14 U/L Critically low 15-37 [facility] Comment on above: Performed By: #### C MP ####[facility] Agriqlnvzl20[address] [place], [place] [address]Dr. Farhat Leal Bilirubin [Mass/Vol] 0.8 mg/dL Normal 0.2-1.0 [facility] Comment on above: Performed By: #### C MP ####[facility] Kqwkuzdlsz56[address] [place], [place] [address]Dr. Farhat Leal Calcium [Mass/Vol] 8.9 mg/dL Normal 8.5-10.1 [facility] Comment on above: Performed By: #### C MP ####[facility] Sfecamfyhc7142 [place] [address]Dr. Farhat Leal Chloride [Moles/Vol] 101 mmol/L Normal 98-107 [facility] Comment on above: Performed By: #### C MP ####[facility] Luexcgczaa3804 [place] [phone]. Farhat Leal CO2 [Moles/Vol] 28.2 mmol/L Normal 21.0-32.[address] [facility] Comment on above: Performed By: #### C MP ####[facility] Vycuebrarn0347 [place] [address]Dr. Farhat Leal Creatinine [Mass/Vol] 1.23 mg/dL Normal 0.70-1.30 [facility] Comment on above: Performed By: #### C MP ####[facility] Xiyjgwjbcm3668 [place] [address]Dr. Farhat Leal EGFR-AF SOMALI >60 Normal >=60 [facility] Comment on above: Performed By: #### C MP ####[facility] Jnmbylqbuh6499 [place] [address]Dr. Farhat Leal EGFR-NON AF SOMALI 57 mL/min/1.73m2 Critically low >=60 [facility] Comment on above: Performed By: #### C MP ####[facility] Hyactxtoef8983 [place] [address]Dr. Farhat Leal Globulin (S) [Mass/Vol] 3.2 g/dL Normal [facility] Comment on above: Performed By: #### C MP ####[facility] Pzdxxxqfez4052 [place] [address]Dr. Farhat Leal Glucose [Mass/Vol] 333 mg/dL Critically high 74-106 [facility] Comment on above: Performed By: #### C MP ####[facility] Wuxfwpdvge[address] [place] [address]Dr. Farhat Leal Potassium [Moles/Vol] 4.3 mmol/L Normal 3.5-5.1 [facility] Comment on above: Performed By: #### C MP ####[facility] Sorbdhxeam24[address] [place] [id number]. Farhat Leal Protein [Mass/Vol] 6.0 g/dL Critically low 6.4-8.2 [facility] Comment on above: Performed By: #### C MP ####[facility] Jborzpgwiw750[address] [place] [address]Dr. Farhat Leal Sodium [Moles/Vol] 136 mmol/L Normal 136-145 [facility] Comment on above: Performed By: #### C MP ####[facility] Xtswczvbtk9476 [place] [address]Dr. Farhat Leal Urea nitrogen [Mass/Vol] 58.0 mg/dL Critically high 7.0-18.0 [facility] Comment on above: Performed By: #### C MP ####[facility] Vhuoiavzrk[address] [place], [place] [address]Dr. Farhat Leal Urea nitrogen/Creatinine [Mass ratio] 47.2 mg/mg Normal [facility] Comment on above: Performed By: #### C MP ####[facility] Deuolbmubb055[address] [place], [place] [address]Dr. Farhat Leal PROTIMEon 05-13-2022 INR Coag (PPP) [Relative time] 3.51 {INR} Normal [facility] Comment on above: Performed By: #### P T ####[facility] Gwlivwkjic88[address] [place], [place] [address]Dr. Farhat Leal INR GUIDELINES SEE BELOW Normal [facility] Comment on above: Result Comment: MALINA RED INR: 2.0 - 3.0 CONDITIONS NOT LISTED BELOW 2.5 - 3.5 FOR PROSTHETIC HEART VALVE REPLACEMENT 2.5 - 3.5 RECURRENT THROMBOSIS Performed By: #### P T ####[facility] Kqlqsxphqr6[address] [place], [place] [address]Dr. Farhat Leal PT Coag (PPP) [Time] 34.7 s Critically high 9.0-11.6 [facility] Comment on above: Performed By: #### P T ####[facility] Fizltepymu39[address] [place], [place] [address]Dr. Farhat Leal FK506 (TACROLIMUS) WHOLE BLO ODon 05-11-2022 Tacrolimus (FK506), Blood 14.4 ng/mL Normal 2.0-20.0 [facility] Comment on above: Result Comment: Trou gh (immediately following transplant) 15.0 . Trough (steady state, 2 weeks or more after transplant): 3.0 - 8.0 . Performed by LC-MS/MS technology. Performed By: #### F K506T ####[facility] Xomnyjrilk838[address] [place], [place] [address]Dr. Madelynlorri Elvis CBC AUTO DIFFon 05-08-2022 BASO # 0.0 103/ul Normal 0.0-0.1 [facility] Comment on above: Performed By: #### C BC ####[facility] Farltaciml824[address] [place], [place] [address]Dr. Farhat Leal Basophils/100 WBC (Bld) 0.5 % Normal 0.2-2.0 [facility] Comment on above: Performed By: #### C BC ####[facility] Iacqrciykz4564[address] [place], [place] [address]Dr. Farhat Leal EO # 0.2 103/ul Normal 0.0-0.7 [facility] Comment on above: Performed By: #### C BC ####[facility] Wdhablremk[address] [place], [place] [address]Dr. Farhat Leal Eosinophils/100 WBC (Bld) 2.9 % Normal 0.9-7.0 [facility] Comment on above: Performed By: #### C BC ####[facility] Fzeqglypfe4[address] [place], [place] [address]Dr. Farhat Leal Erythrocyte distribution width (RBC) [Ratio] 16.0 % Critically high 11.0-15.0 [facility] Comment on above: Performed By: #### C BC ####[facility] Msogwvmqhb1449[address] [place], [place] [address]Dr. Farhat Leal Hematocrit (Bld) [Volume fraction] 35.7 % Critically low 42.0-54.0 [facility] Comment on above: Performed By: #### C BC ####[facility] Wfuiwjoumt14[address] [place] [phone]. Farhat Leal Hemoglobin (Bld) [Mass/Vol] 11.9 g/dL Critically low 14.0-18.0 [facility] Comment on above: Performed By: #### C BC ####[facility] Orslnhllpw2541 [place] [phone]. Farhat Leal IG # 0.03 10e3/ul Normal 0.00-0.03 [facility] Comment on above: Performed By: #### C BC ####[facility] Uribrdjlgo7463 [place] [phone]. Farhat Leal IG % 0.5 % Normal 0.0-0.5 [facility] Comment on above: Performed By: #### C BC ####[facility] Cxhdnmkrbk9677 [place] [address]Dr. Farhat Leal LYMPH # 2.4 103/ul Normal 1.2-3.8 [facility] Comment on above: Performed By: #### C BC ####[facility] Ahmjrtoeqs0961 [place] [address]Dr. Farhat Leal Lymphocytes/100 WBC (Bld) 37.8 % Normal 20.5-60.0 [facility] Comment on above: Performed By: #### C BC ####[facility] Inetchmobw3397 [place] [address]Dr. Farhat Leal MANUAL DIFF REQ NO Normal [facility] Comment on above: Performed By: #### C BC ####[facility] Dhcnffhtko7038 [place] [phone]. Farhat Leal MCH (RBC) [Entitic mass] 30.4 pg Normal 25.9-34.0 [facility] Comment on above: Performed By: #### C BC ####[facility] Fqcfyfmpak9551 [place] [phone]. Farhat Leal MCHC (RBC) [Mass/Vol] 33.3 g/dL Normal 29.9-35.2 [facility] Comment on above: Performed By: #### C BC ####[facility] Prfkjmupbk8728 [place] [phone]. Farhat Leal MCV (RBC) [Entitic vol] 91.1 fL Normal 80.0-94.0 [facility] Comment on above: Performed By: #### C BC ####[facility] Ravymlnrul2940 [place] [phone]. Farhat Leal MONO # 0.7 103/ul Normal 0.3-0.8 [facility] Comment on above: Performed By: #### C BC ####[facility] Jzaumbkbid8994 [place] [phone]. Farhat Leal Monocytes/100 WBC (Bld) 11.1 % Normal 1.7-12.0 [facility] Comment on above: Performed By: #### C BC ####[facility] Lkcjeqjhce5390[address] [place], [place] [address]Dr. Farhat Leal NEUT # 2.9 103/ul Normal 1.4-6.5 [facility] Comment on above: Performed By: #### C BC ####[facility] Cupvatxxyb9813[address] [place], [place] [address]Dr. Farhat Lael Neutrophils/100 WBC (Bld) 47.2 % Normal 43.0-75.0 [facility] Comment on above: Performed By: #### C BC ####[facility] Ppxrrrihon4390[address] [place], [place] [address]Dr. Farhat Leal Platelet mean volume (Bld) [Entitic vol] 11.0 fL Normal 9.5-13.5 [facility] Comment on above: Performed By: #### C BC ####[facility] Fkkfhgsqpe[address] [place], [place] [id number]. Farhat Elvis PLT 191 103/ul Normal 150-450 [facility] Comment on above: Performed By: #### C BC ####[facility] Omwokmcbwk56[address] [place], [place] [id number]. Farhat Elvis RBC 3.92 106/ul Critically low 4.70-6.10 [facility] Comment on above: Performed By: #### C BC ####[facility] Sruhoqaiby5230[address] [place], [place] [address]Dr. Farhat Leal WBC 6.2 103/ul Normal 4.0-11.0 [facility] Comment on above: Performed By: #### C BC ####[facility] Foletqwutm8765 [place] [address]Dr. Farhat Leal MAGNESIUMon 05-08-2022 Magnesium [Mass/Vol] 1.9 mg/dL Normal 1.8-2.4 [facility] Comment on above: Performed By: #### P HOS, MG ####[facility] Jvsskabggg119[address] [place] [address]Dr. Farhat Leal PHOSPHORUSon 05-08-2022 Phosphate [Mass/Vol] 4.5 mg/dL Normal 2.6-4.7 [facility] Comment on above: Performed By: #### P HOS, MG ####[facility] Gvpnsgrcvv9109 [place] [address]Dr. Madelynlorri Leal PROF 14(COMP METB)on 023 Albumin [Mass/Vol] 2.9 g/dL Critically low 3.4-5.0 [facility] Comment on above: Performed By: #### C MP ####[facility] Qdlxknhjcb5[address] [place], [place] [address]Dr. Farhat Leal Albumin/Globulin [Mass ratio] 0.9 {ratio} Normal [facility] Comment on above: Performed By: #### C MP ####[facility] Ovnlddadkw673[address] [place], [place] [address]Dr. Madelynlorri Leal ALP [Catalytic activity/Vol] 70 U/L Normal 46-116 [facility] Comment on above: Performed By: #### C MP ####[facility] Njivoohxwe6625[address] [place], [place] [address]Dr. Farhat Leal ALT [Catalytic activity/Vol] 13 U/L Critically low 16-63 [facility] Comment on above: Performed By: #### C MP ####[facility] Yxvphqtpzy3484 [place] [address]Dr. Farhat Leal Anion gap [Moles/Vol] 14.6 mmol/L Normal [facility] Comment on above: Performed By: #### C MP ####[facility] Fwyckzxzzi1836 [place] [address]Dr. Farhat Leal AST [Catalytic activity/Vol] 17 U/L Normal 15-37 [facility] Comment on above: Performed By: #### C MP ####[facility] Kqarnyuumt6804 [place] [phone]. Farhat Leal Bilirubin [Mass/Vol] 0.8 mg/dL Normal 0.2-1.0 [facility] Comment on above: Performed By: #### C MP ####[facility] Wfwubbmpas0137 [place] [address]Dr. Farhat Leal Calcium [Mass/Vol] 8.9 mg/dL Normal 8.5-10.1 [facility] Comment on above: Performed By: #### C MP ####[facility] Ygrcjphspq9420[address] [place], [place] [address]Dr. Farhat Leal Chloride [Moles/Vol] 102 mmol/L Normal 98-107 [facility] Comment on above: Performed By: #### C MP ####[facility] Tftcagnuht8215[address] [place], [place] [address]Dr. Farhat Leal CO2 [Moles/Vol] 22.9 mmol/L Normal 21.0-32.[address] [facility] Comment on above: Performed By: #### C MP ####[facility] Kzfitvbyhb1957[address] [place], [place] [address]Dr. Farhat Leal Creatinine [Mass/Vol] 1.20 mg/dL Normal 0.70-1.30 [facility] Comment on above: Performed By: #### C MP ####[facility] Gzobnlfkxv8513[address] [place], [place] [address]Dr. Farhat Elvis EGFR-AF SOMALI >60 Normal >=[address] [facility] Comment on above: Performed By: #### C MP ####[facility] Lasinjidyp9558[address] [place], [place] [address]Dr. Madelynlorri Elvis EGFR-NON AF SOMALI 59 mL/min/1.73m2 Critically low >=60 [facility] Comment on above: Performed By: #### C MP ####[facility] Bnbzgfttdh6126 [place] [phone]. Farhat Leal Globulin (S) [Mass/Vol] 3.1 g/dL Normal [facility] Comment on above: Performed By: #### C MP ####[facility] Uxilhnhaky6149 [place] [phone]. Farhat Leal Glucose [Mass/Vol] 447 mg/dL Critically high 74-106 [facility] Comment on above: Performed By: #### C MP ####[facility] Lsseopvavb9734 [place] [phone]. Farhat Leal Potassium [Moles/Vol] 4.5 mmol/L Normal 3.5-5.1 [facility] Comment on above: Performed By: #### C MP ####[facility] Vmvuhvntdl6107[address] [place], [place] [address]Dr. Farhat Leal Protein [Mass/Vol] 6.0 g/dL Critically low 6.4-8.2 [facility] Comment on above: Performed By: #### C MP ####[facility] Umpxapenjo[address] [place] [address]Dr. Farhat Leal Sodium [Moles/Vol] 135 mmol/L Critically low 136-145 [facility] Comment on above: Performed By: #### C MP ####[facility] Rlvgtxvxno8858 [place] [address]Dr. Farhat Leal Urea nitrogen [Mass/Vol] 52.0 mg/dL Critically high 7.0-18.0 [facility] Comment on above: Performed By: #### C MP ####[facility] Nuieemhqah2781 [place] [address]Dr. Farhat Leal Urea nitrogen/Creatinine [Mass ratio] 43.3 mg/mg Normal [facility] Comment on above: Performed By: #### C MP ####[facility] Vpnpocbkxq12[address] [place], [place] [address]Dr. Farhat Leal PROTIMEon 05-06-2022 INR Coag (PPP) [Relative time] 2.25 {INR} Normal [facility] Comment on above: Performed By: #### P T ####[facility] Lmlcdsvchm7406[address] [place], [place] [address]DrSkylar Leal INR GUIDELINES SEE BELOW Normal [facility] Comment on above: Result Comment: MALINA RED INR: 2.0 - 3.0 CONDITIONS NOT LISTED BELOW 2.5 - 3.5 FOR PROSTHETIC HEART VALVE REPLACEMENT 2.5 - 3.5 RECURRENT THROMBOSIS Performed By: #### P T ####[facility] Chceihkiyv9154[address] [place], [place] [address]DrSkylar Leal PT Coag (PPP) [Time] 22.8 s Critically high 9.0-11.6 [facility] Comment on above: Performed By: #### P T ####[facility] Uurzxdahiv2234[address] [place], [place] [address]DrSkylar Leal FK506 (TACROLIMUS) WHOLE BLO ODon 05-04-2022 Tacrolimus (FK506), Blood 10.4 ng/mL Normal 2.0-20.0 [facility] Comment on above: Result Comment: Trou gh (immediately following transplant) 15.0 . Trough (steady state, 2 weeks or more after transplant): 3.0 - 8.0 . Performed by LC-MS/MS technology. Performed By: #### F K506T ####[facility] Fqkhaifzly07[address] [place], [place] [address]Dr. Farhat Leal CBC AUTO DIFFon 05-01-2022 BASO # 0.1 103/ul Normal 0.0-0.1 [facility] Comment on above: Performed By: #### C BC ####[facility] Thipzqyged0796[address] [place], [place] [address]DrSkylar Leal Basophils/100 WBC (Bld) 0.7 % Normal 0.2-2.0 [facility] Comment on above: Performed By: #### C BC ####[facility] Xfrvukvxtq3734[address] [place], [place] [address]DrSkylar Leal EO # 0.2 103/ul Normal 0.0-0.7 [facility] Comment on above: Performed By: #### C BC ####[facility] Lqsvbjbezv2215[address] [place], [place] [address]Dr. Farhat Leal Eosinophils/100 WBC (Bld) 3.2 % Normal 0.9-7.0 [facility] Comment on above: Performed By: #### C BC ####[facility] Kfadbnysfx8459 [place] [address]Dr. Farhat Leal Erythrocyte distribution width (RBC) [Ratio] 16.4 % Critically high 11.0-15.0 [facility] Comment on above: Performed By: #### C BC ####[facility] Tqawiriagf2036[address] [place], [place] [address]Dr. Farhat Leal Hematocrit (Bld) [Volume fraction] 35.1 % Critically low 42.0-54.0 [facility] Comment on above: Performed By: #### C BC ####[facility] Tytpdojxmy7745[address] [place], [place] [address]Dr. Farhat Leal Hemoglobin (Bld) [Mass/Vol] 11.6 g/dL Critically low 14.0-18.0 [facility] Comment on above: Performed By: #### C BC ####[facility] Xhhwuqacfy4978[address] [place], [place] [address]Dr. Farhat Leal IG # 0.03 10e3/ul Normal 0.00-0.03 [facility] Comment on above: Performed By: #### C BC ####[facility] Gjkwmajumn0909[address] [place], [place] [address]Dr. Farhat Leal IG % 0.4 % Normal 0.0-0.5 [facility] Comment on above: Performed By: #### C BC ####[facility] Qldvoqxvus7227[address] [place], [place] [address]Dr. Farhat Leal LYMPH # 2.4 103/ul Normal 1.2-3.8 [facility] Comment on above: Performed By: #### C BC ####[facility] Vvfyyebvvm1087[address] [place], [place] [address]Dr. Farhat Leal Lymphocytes/100 WBC (Bld) 35.1 % Normal 20.5-60.0 [facility] Comment on above: Performed By: #### C BC ####[facility] Fbyvzlyczs8485 [place] [address]Dr. Farhat Elvis MANUAL DIFF REQ NO Normal [facility] Comment on above: Performed By: #### C BC ####[facility] Pnhhbuesqi5690 [place] [address]Dr. Farhat Leal MCH (RBC) [Entitic mass] 29.4 pg Normal 25.9-34.0 [facility] Comment on above: Performed By: #### C BC ####[facility] Lxlskwzxag2399 [place] [address]Dr. Farhat Elvis MCHC (RBC) [Mass/Vol] 33.0 g/dL Normal 29.9-35.2 [facility] Comment on above: Performed By: #### C BC ####[facility] Kuxpkjfjhm26[address] [place], [place] [address]Dr. Madelynlorri Leal MCV (RBC) [Entitic vol] 88.9 fL Normal 80.0-94.0 [facility] Comment on above: Performed By: #### C BC ####[facility] Bhbiljxdpn6187[address] [place], [place] [address]Dr. Farhat Elvis MONO # 0.7 103/ul Normal 0.3-0.8 [facility] Comment on above: Performed By: #### C BC ####[facility] Mduqqkkwyl6726[address] [place], [place] [address]Dr. Madelynlorri Leal Monocytes/100 WBC (Bld) 9.6 % Normal 1.7-12.0 [facility] Comment on above: Performed By: #### C BC ####[facility] Kimpfotiqd3541 [place] [address]Dr. Farhat Leal NEUT # 3.5 103/ul Normal 1.4-6.5 [facility] Comment on above: Performed By: #### C BC ####[facility] Esmzrppkui58[address] [place], [place] [address]Dr. Farhat Leal Neutrophils/100 WBC (Bld) 51.0 % Normal 43.0-75.0 [facility] Comment on above: Performed By: #### C BC ####[facility] Pjbyimnjgt5463 [place] [address]Dr. Madelynlorri Elvis Platelet mean volume (Bld) [Entitic vol] 10.3 fL Normal 9.5-13.5 [facility] Comment on above: Performed By: #### C BC ####[facility] Evqknbxfvz2840 [place] [address]Dr. Madelynlorri Elvis PLT 184 103/ul Normal 150-450 [facility] Comment on above: Performed By: #### C BC ####[facility] Hagccqhber39[address] [place] [address]Dr. Madelynlorri Elvis RBC 3.95 106/ul Critically low 4.70-6.10 [facility] Comment on above: Performed By: #### C BC ####[facility] Texlxugrar2296 [place] [address]Dr. Farhat Leal WBC 7.0 103/ul Normal 4.0-11.0 [facility] Comment on above: Performed By: #### C BC ####[facility] Xgxvumlrqn2415 [place] [address]Dr. Farhat Leal PROF 14(COMP METB)on 023 Albumin [Mass/Vol] 2.6 g/dL Critically low 3.4-5.0 [facility] Comment on above: Performed By: #### C MP ####[facility] Kgmdktfula6[address] [place] [address]Dr. Farhat Leal Albumin/Globulin [Mass ratio] 0.9 {ratio} Normal [facility] Comment on above: Performed By: #### C MP ####[facility] Uaxfjuazko6[address] [place] [address]Dr. Farhat Leal ALP [Catalytic activity/Vol] 53 U/L Normal 46-116 [facility] Comment on above: Performed By: #### C MP ####[facility] Yfhpulxxqv7277 [place] [address]Dr. Farhat Leal ALT [Catalytic activity/Vol] 17 U/L Normal 16-63 [facility] Comment on above: Performed By: #### C MP ####[facility] Ujfcsburie7480[address] [place], [place] [address]Dr. Farhat Leal Anion gap [Moles/Vol] 10.0 mmol/L Normal [facility] Comment on above: Performed By: #### C MP ####[facility] Jykfepaaxb0[address] [place], [place] [address]Dr. Farhat Leal AST [Catalytic activity/Vol] 19 U/L Normal 15-37 [facility] Comment on above: Performed By: #### C MP ####[facility] Jctgnckhpm9055[address] [place], [place] [address]Dr. Farhat Elvis Bilirubin [Mass/Vol] 0.5 mg/dL Normal 0.2-1.0 [facility] Comment on above: Performed By: #### C MP ####[facility] Fmxvqmvfjx5656[address] [place], [place] [address]Dr. Farhat Leal Calcium [Mass/Vol] 8.4 mg/dL Critically low 8.5-10.1 [facility] Comment on above: Performed By: #### C MP ####[facility] Ztmyysjgbe2576[address] [place], [place] [address]Dr. Farhat Leal Chloride [Moles/Vol] 108 mmol/L Critically high 98-107 [facility] Comment on above: Performed By: #### C MP ####[facility] Rpcdgdfujb4997[address] [place], [place] [address]Dr. Farhat Leal CO2 [Moles/Vol] 26.9 mmol/L Normal 21.0-32.[address] [facility] Comment on above: Performed By: #### C MP ####[facility] Lwgjantggi7608[address] [place], [place] [address]Dr. Farhat Leal Creatinine [Mass/Vol] 1.20 mg/dL Normal 0.70-1.30 [facility] Comment on above: Performed By: #### C MP ####[facility] Iysxljxrdw936[address] [place], [place] [address]Dr. Farhat Leal EGFR-AF SOMALI >60 Normal >=[address] [facility] Comment on above: Performed By: #### C MP ####[facility] Srsrgfdyaa0320[address] [place], [place] [address]Dr. Farhat Leal EGFR-NON AF SOMALI 59 mL/min/1.73m2 Critically low >=60 [facility] Comment on above: Performed By: #### C MP ####[facility] Uhhevifyij3523 [place] [address]Dr. Madelynlorri Elvis Globulin (S) [Mass/Vol] 3.0 g/dL Normal [facility] Comment on above: Performed By: #### C MP ####[facility] Zsixcrxlaa6719 [place] [address]Dr. Farhat Leal Glucose [Mass/Vol] 213 mg/dL Critically high 74-106 [facility] Comment on above: Performed By: #### C MP ####[facility] Mjcneaelwz4645[address] [place], [place] [address]Dr. Farhat Leal Potassium [Moles/Vol] 3.9 mmol/L Normal 3.5-5.1 [facility] Comment on above: Performed By: #### C MP ####[facility] Mxjftlknxf299[address] [place], [place] [address]Dr. Farhat Leal Protein [Mass/Vol] 5.6 g/dL Critically low 6.4-8.2 [facility] Comment on above: Performed By: #### C MP ####[facility] Iqddnsykrv5435[address] [place], [place] [address]Dr. Farhat Leal Sodium [Moles/Vol] 141 mmol/L Normal 136-145 [facility] Comment on above: Performed By: #### C MP ####[facility] Rfqbxspyui6835 [place] [address]Dr. Farhat Leal Urea nitrogen [Mass/Vol] 61.0 mg/dL Critically high 7.0-18.0 [facility] Comment on above: Performed By: #### C MP ####[facility] Zjuyxfgptd9[address] [place], [place] [address]Dr. Farhat Leal Urea nitrogen/Creatinine [Mass ratio] 50.8 mg/mg Normal [facility] Comment on above: Performed By: #### C MP ####[facility] Jgxrhvywun3474[address] [place], [place] [address]Dr. Farhat Leal FK506 (TACROLIMUS) WHOLE BLO ODon 04-27-2022 Tacrolimus (FK506), Blood 16.5 ng/mL Normal 2.0-20.0 [facility] Comment on above: Result Comment: Trou gh (immediately following transplant) 15.0 . Trough (steady state, 2 weeks or more after transplant): 3.0 - 8.0 . Performed by LC-MS/MS technology. Performed By: #### F K506T ####[facility] Ksejkuwnyc[address] [place], [place] [address]Dr. Farhat Leal CBC AUTO DIFFon 04-24-2022 BASO # 0.0 103/ul Normal 0.0-0.1 [facility] Comment on above: Performed By: #### C BC ####[facility] Gkdvjwaome[address] [place], [place] [address]DrSkylar Leal Basophils/100 WBC (Bld) 0.5 % Normal 0.2-2.0 [facility] Comment on above: Performed By: #### C BC ####[facility] Icdurwwuvj[address] [place], [place] [address]Dr. Farhat Leal EO # 0.2 103/ul Normal 0.0-0.7 [facility] [facility] Comment on above: Performed By: #### C BC ####[facility] Koeqsz[address]fr[address] [place], [place] [address]Dr. Farhat Leal Eosinophils/100 WBC (Bld) 3.1 % Normal 0.9-7.0 [facility] Comment on above: Performed By: #### C BC ####[facility] Dohjlrotyn[address] [place], [place] [address]Dr. Farhat Leal Erythrocyte distribution width (RBC) [Ratio] 16.3 % Critically high 11.0-15.0 [facility] Comment on above: Performed By: #### C BC ####[facility] Oh[address]rhph[address] [place], [place] [address]DrSkylar Leal Hematocrit (Bld) [Volume fraction] 34.0 % Critically low 42.0-54.0 [facility] Comment on above: Performed By: #### C BC ####[facility] [address] [place] [address]Dr. Farhat Leal Hemoglobin (Bld) [Mass/Vol] 11.6 g/dL Critically low 14.0-18.0 [facility] Comment on above: Performed By: #### C BC ####[facility] [address]ixfezfnv[address] [place] [address]Dr. Farhat Leal IG # 0.02 10e3/ul Normal 0.00-0.03 [facility] Comment on above: Performed By: #### C BC ####[facility] Qplsxrzdby[address] [place] [address]Dr. Farhat Leal IG % 0.4 % Normal 0.0-0.5 [facility] Comment on above: Performed By: #### C BC ####[facility] Paqhcttfgn48[address] [place] [address]Dr. Farhat Leal LYMPH # 2.2 103/ul Normal 1.2-3.8 [facility] Comment on above: Performed By: #### C BC ####[facility] Pnbhanhdju[address] [place] [address]Dr. Farhat Leal Lymphocytes/100 WBC (Bld) 38.8 % Normal 20.5-60.0 [facility] Comment on above: Performed By: #### C BC ####[facility] Sfyobacuvi[address] [place] [address]Dr. Farhat Leal MANUAL DIFF REQ NO Normal [facility] Comment on above: Performed By: #### C BC ####[facility] Nswuypmjzc68[address] [place] [phone]. Farhat Leal MCH (RBC) [Entitic mass] 30.1 pg Normal 25.9-34.0 [facility] Comment on above: Performed By: #### C BC ####[facility] Qkyvsjtfdi8830 [place] [phone]. Farhat Leal MCHC (RBC) [Mass/Vol] 34.1 g/dL Normal 29.9-35.2 [facility] Comment on above: Performed By: #### C BC ####[facility] Ofvtjflkqa[address] [place], [place] [address]Dr. Farhat Leal MCV (RBC) [Entitic vol] 88.1 fL Normal 80.0-94.0 [facility] Comment on above: Performed By: #### C BC ####[facility] L[address]pim[address] [place] [address]Dr. Farhat Leal MONO # 0.6 103/ul Normal 0.3-0.8 [facility] Comment on above: Performed By: #### C BC ####[facility] Vibwpjjtah4[address] [place] [address]Dr. Farhat Leal Monocytes/100 WBC (Bld) 10.8 % Normal 1.7-12.0 [facility] Comment on above: Performed By: #### C BC ####[facility] Zdytofqhvh9107 [place] [address]Dr. Farhat Leal NEUT # 2.6 103/ul Normal 1.4-6.5 [facility] Comment on above: Performed By: #### C BC ####[facility] Nbohyscztk86[address] [place] [address]Dr. Farhat Leal Neutrophils/100 WBC (Bld) 46.4 % Normal 43.0-75.0 [facility] Comment on above: Performed By: #### C BC ####[facility] Onxfliybol4626 [place] [address]Dr. Farhat Leal Platelet mean volume (Bld) [Entitic vol] 10.9 fL Normal 9.5-13.5 [facility] Comment on above: Performed By: #### C BC ####[facility] Kuwovxfrny2443 [place] [address]Dr. Farhat Elvis PLT 159 103/ul Normal 150-450 [facility] Comment on above: Performed By: #### C BC ####[facility] Oedkrloyxm6085 [place] [phone]. Farhat Elvis RBC 3.86 106/ul Critically low 4.70-6.10 [facility] Comment on above: Performed By: #### C BC ####[facility] Nn[address]ms[address] [place], [place] [address]Dr. Farhat Elvis WBC 5.6 103/ul Normal 4.0-11.0 [facility] Comment on above: Performed By: #### C BC ####[facility] Cgbvjtyonl1396 [place] [address] Farhat Leal PROTIMEon 04-24-2022 INR Coag (PPP) [Relative time] 3.23 {INR} Normal [facility] Comment on above: Performed By: #### P T ####[facility] Jmxeofzlas[address] [place], [place] [address]DrSkylar Leal INR GUIDELINES SEE BELOW Normal [facility] Comment on above: Result Comment: MALINA RED INR: 2.0 - 3.0 CONDITIONS NOT LISTED BELOW 2.5 - 3.5 FOR PROSTHETIC HEART VALVE REPLACEMENT 2.5 - 3.5 RECURRENT THROMBOSIS Performed By: #### P T ####[facility] Vusyjmimuh[address] [place], [place] [address]DrSkylar Leal PT Coag (PPP) [Time] 32.0 s Critically high 9.0-11.6 [facility] Comment on above: Performed By: #### P T ####[facility] Kps[address] [place], [place] [address]DrSkylar Leal FK506 (TACROLIMUS) WHOLE BLO ODon 04-20-2022 Tacrolimus (FK506), Blood 13.9 ng/mL Normal 2.0-20.0 [facility] Comment on above: Result Comment: Trou gh (immediately following transplant) 15.0 . Trough (steady state, 2 weeks or more after transplant): 3.0 - 8.0 . Performed by LC-MS/MS technology. Performed By: #### F K506T ####[facility] Kweccxlsyy12[address] [place] [address]DrSkylar Madelynlorri Leal CBC AUTO DIFFon 04-17-2022 BASO # 0.0 103/ul Normal 0.0-0.1 [facility] Comment on above: Performed By: #### C BC ####[facility] Prdthxkpxt[address] [place], [place] [address]DrSkylar Leal Basophils/100 WBC (Bld) 0.4 % Normal 0.2-2.0 [facility] Comment on above: Performed By: #### C BC ####[facility] Dfkduaieel[address] [place], [place] [address]Dr. Farhat Leal EO # 0.2 103/ul Normal 0.0-0.7 [facility] Comment on above: Performed By: #### C BC ####[facility] Eytbnftpve6[address] [place], [place] [address]DrSkylar Leal Eosinophils/100 WBC (Bld) 2.8 % Normal 0.9-7.0 [facility] Comment on above: Performed By: #### C BC ####[facility] Zlmtolrtgh8[address] [place], [place] [address]Dr. Farhat Leal Erythrocyte distribution width (RBC) [Ratio] 16.1 % Critically high 11.0-15.0 [facility] Comment on above: Performed By: #### C BC ####[facility] Ertcdalfza60[address] [place], [place] [address]Dr. Farhat Leal Hematocrit (Bld) [Volume fraction] 35.7 % Critically low 42.0-54.0 [facility] Comment on above: Performed By: #### C BC ####[facility] Dmhgpaeoqa[address] [place], [place] [address]DrSkylar Madelynlorri Leal Hemoglobin (Bld) [Mass/Vol] 12.2 g/dL Critically low 14.0-18.0 [facility] Comment on above: Performed By: #### C BC ####[facility] Jopgbrmcjh[address] [place], [place] [address]Dr. Farhat Leal IG # 0.03 10e3/ul Normal 0.00-0.03 [facility] Comment on above: Performed By: #### C BC ####[facility] Yebpklfned[address] [place], [place] [address]Dr. Farhat Leal IG % 0.4 % Normal 0.0-0.5 [facility] Comment on above: Performed By: #### C BC ####[facility] Avbcyxntei[address] [place], [place] [address]DrSkylar Leal LYMPH # 2.4 103/ul Normal 1.2-3.8 [facility] Comment on above: Performed By: #### C BC ####[facility] Bfvjahtshh1445 [place] [address]Dr. Farhat Leal Lymphocytes/100 WBC (Bld) 36.1 % Normal 20.5-60.0 [facility] Comment on above: Performed By: #### C BC ####[facility] Guibinqjef[address] [place] [address]DrSkylar Leal MANUAL DIFF REQ NO Normal [facility] Comment on above: Performed By: #### C BC ####[facility] Hyaxzorjbf7862 [place] [address]DrSkylar Leal MCH (RBC) [Entitic mass] 30.3 pg Normal 25.9-34.0 [facility] Comment on above: Performed By: #### C BC ####[facility] Nelrvbgirb[address] [place], [place] [address]Dr. Farhat Leal MCHC (RBC) [Mass/Vol] 34.2 g/dL Normal 29.9-35.2 [facility] Comment on above: Performed By: #### C BC ####[facility] Wlkyjhmfbk[address] [place], [place] [address]DrSkylar Leal MCV (RBC) [Entitic vol] 88.6 fL Normal 80.0-94.0 [facility] Comment on above: Performed By: #### C BC ####[facility] Gkmrpktfgk[address] [place], [place] [address]Dr. Farhat Leal MONO # 0.7 103/ul Normal 0.3-0.8 [facility] Comment on above: Performed By: #### C BC ####[facility] Yoetyxuzle[address] [place], [place] [address]Dr. Farhat Leal Monocytes/100 WBC (Bld) 10.1 % Normal 1.7-12.0 [facility] Comment on above: Performed By: #### C BC ####[facility] Xykmtvfewi8[address] [place], [place] [address]DrSkylar Leal NEUT # 3.4 103/ul Normal 1.4-6.5 [facility] Comment on above: Performed By: #### C BC ####[facility] Katrkqwwgg7605 [place] [address]Dr. Farhat Leal Neutrophils/100 WBC (Bld) 50.2 % Normal 43.0-75.0 [facility] Comment on above: Performed By: #### C BC ####[facility] Xnmxdgetbe5866 [place] [address]Dr. Farhat Leal Platelet mean volume (Bld) [Entitic vol] 11.8 fL Normal 9.5-13.5 [facility] Comment on above: Performed By: #### C BC ####[facility] Xvtuqhhxhn[address] [place], [place] [address]Dr. Farhat Leal PLT 193 103/ul Normal 150-450 [facility] Comment on above: Performed By: #### C BC ####[facility] Hytlyeuhgh[address] [place] [address]Dr. Farhat Leal RBC 4.03 106/ul Critically low 4.70-6.10 [facility] Comment on above: Performed By: #### C BC ####[facility] Dyzqqmqxsz[address] [place], [place] [address]Dr. Farhat Leal WBC 6.8 103/ul Normal 4.0-11.0 [facility] Comment on above: Performed By: #### C BC ####[facility] Ephrfsmgfl5052 [place] [address]Dr. Farhat Leal PROF 14(COMP METB)on 023 Albumin [Mass/Vol] 2.9 g/dL Critically low 3.4-5.0 [facility] Comment on above: Performed By: #### C MP ####[facility] Laaiaugivx[address] [place], [place] [address]Dr. Farhat Leal Albumin/Globulin [Mass ratio] 0.9 {ratio} Normal [facility] Comment on above: Performed By: #### C MP ####[facility] Ashcbeuuuc3[address] [place] [address]Dr. Farhat Leal ALP [Catalytic activity/Vol] 67 U/L Normal 46-116 [facility] Comment on above: Performed By: #### C MP ####[facility] Bmimpyptvl2672 [place] [address]Dr. Farhat Leal ALT [Catalytic activity/Vol] 15 U/L Critically low 16-63 [facility] Comment on above: Performed By: #### C MP ####[facility] Yfdlzwafms6954 [place] [address]Dr. Farhat Leal Anion gap [Moles/Vol] 10.8 mmol/L Normal Th e [facility] Comment on above: Performed By: #### C MP ####[facility] Epqiqmsvej6207 [place] [address]Dr. Farhat Leal AST [Catalytic activity/Vol] 23 U/L Normal 15-37 [facility] Comment on above: Performed By: #### C MP ####[facility] Ialnliqyzs[address] [place], [place] [address]Dr. Farhat Elvis Bilirubin [Mass/Vol] 0.6 mg/dL Normal 0.2-1.0 [facility] Comment on above: Performed By: #### C MP ####[facility] Fzwoipivei[address]3 [place] [address]Dr. Farhat Leal Calcium [Mass/Vol] 8.7 mg/dL Normal 8.5-10.1 [facility] Comment on above: Performed By: #### C MP ####[facility] Mvqeatoacz85[address] [place] [address]Dr. Farhat Elvis Chloride [Moles/Vol] 105 mmol/L Normal 98-107 [facility] Comment on above: Performed By: #### C MP ####[facility] Dvgarnknlh2953 [place] [address]Dr. Farhat Leal CO2 [Moles/Vol] 29.5 mmol/L Normal 21.0-32.[address] [facility] Comment on above: Performed By: #### C MP ####[facility] Jwrmoyhujg6017 [place] [address]Dr. Farhat Elvis Creatinine [Mass/Vol] 1.37 mg/dL Critically high 0.70-1.30 [facility] Comment on above: Performed By: #### C MP ####[facility] Pdsnmwxexd6420 [place] [address]Dr. Farhat Elvis EGFR-AF SOMALI >60 Normal >=60 [facility] Comment on above: Performed By: #### C MP ####[facility] Ashmtboaff[address]46 [place], [place] [address]Tx. Farhat Elvis EGFR-NON AF SOMALI 50 mL/min/1.73m2 Critically low >=60 [facility] Comment on above: Performed By: #### C MP ####[facility] Gafucnlsqa4621 [place] [address]Dr. Farhat Elvis Globulin (S) [Mass/Vol] 3.1 g/dL Normal [facility] Comment on above: Performed By: #### C MP ####[facility] Xzhnzldlpi9198 [place] [address]Dr. Madelynlorri Elvis Glucose [Mass/Vol] 203 mg/dL Critically high 74-106 [facility] Comment on above: Performed By: #### C MP ####[facility] Ozxqozmkns8166 [place] [address]Dr. Madelynlorri Leal Potassium [Moles/Vol] 4.3 mmol/L Normal 3.5-5.1 [facility] Comment on above: Performed By: #### C MP ####[facility] Vtsrzudyvb7990 [place] [address]Dr. Madelynlorri Elvis Protein [Mass/Vol] 6.0 g/dL Critically low 6.4-8.2 [facility] Comment on above: Performed By: #### C MP ####[facility] Imlmccxels4296 [place] [address]Dr. Farhat Elvis Sodium [Moles/Vol] 141 mmol/L Normal 136-145 [facility] Comment on above: Performed By: #### C MP ####[facility] Jbifepfshs3203 [place] [address]Dr. Farhat Leal Urea nitrogen [Mass/Vol] 65.0 mg/dL Critically high 7.0-18.0 [facility] Comment on above: Performed By: #### C MP ####[facility] Ijabptdxew7162 [place] [address]Dr. Madelynlorri Leal Urea nitrogen/Creatinine [Mass ratio] 47.4 mg/mg Normal [facility] Comment on above: Performed By: #### C MP ####[facility] Fgvoidxnyk4392 [place] [address]DrSkylar Leal PROTIMEon 04-15-2022 INR Coag (PPP) [Relative time] 3.88 {INR} Normal [facility] Comment on above: Performed By: #### P T ####[facility] Mpozgxwezr3651 [place] [address]Dr. Farhat Leal INR GUIDELINES SEE BELOW Normal [facility] Comment on above: Result Comment: MALINA RED INR: 2.0 - 3.0 CONDITIONS NOT LISTED BELOW 2.5 - 3.5 FOR PROSTHETIC HEART VALVE REPLACEMENT 2.5 - 3.5 RECURRENT THROMBOSIS Performed By: #### P T ####[facility] Kvgbzrjstg0363 [place] [address]Dr. Madelynlorri Leal PT Coag (PPP) [Time] 38.1 s Critically high 9.0-11.6 [facility] Comment on above: Performed By: #### P T ####[facility] Snzdmvifbt3256 [place] [address]Dr. Farhat Leal Glucose Glucometer (BldC) [M ass/Vol]Ordered By: Sadia Aguilar on 04-14-2022 Glucose [Mass/Vol] 162 mg/dL [facility] Comment on above: Random Glucose Refer ence Range is dependent on time and content of last meal. Glucose of more than 200 mg/dL in a nonstressed, ambulatory subject supports the diagnosis of Diabetes Mellitus. Glucose Poct Glucometerson 0 04-14-2022 Commemt1 Glu2: Cleaned Meter Normal [facility] [place] [facility] Comment on above: Result Comment: PERF ORMED BY: [facility] [address] [address] PATHOLOGIST TENTER FEEDER JOSE F ELLIOTT M.D. Performed By: #### G LULS #### Point of Care testing , Glucose [Mass/Vol] 162 mg/dL Normal [facility] Comment on above: Result Comment: [facility] Glucose Reference Range is dependent on time and content of last meal. Glucose of more than 200 mg/dL in a nonstressed, ambulatory subject supports the diagnosis of Diabetes Mellitus. Performed By: #### G LULS #### Point of Care testing , No Panel InformationOrdered By: Sadia Aguilar on 04-14-2022 Bedside Glucose Comment Glu2: cleaned meter [facility] MAGNESIUMon 04-13-2022 Magnesium [Mass/Vol] 1.7 mg/dL Critically low 1.8-2.4 [facility] Comment on above: Performed By: #### M HENRI Manzo ####[facility] Krprpcxzus[address] [place] [address]DrSkylar Leal PHOSPHORUSon 04-13-2022 Phosphate [Mass/Vol] 4.8 mg/dL Critically high 2.6-4.7 [facility] Comment on above: Performed By: #### M HENRI Manzo ####[facility] Wzvtzzjvjq0903 [place] [address]DrSkylar Leal PROTIMEon 04-13-2022 INR Coag (PPP) [Relative time] 3.16 {INR} Normal [facility] Comment on above: Performed By: #### P T ####[facility] [address] [place], [place] [address]DrSkylar Leal INR GUIDELINES SEE BELOW Normal [facility] Comment on above: Result Comment: MALINA RED INR: 2.0 - 3.0 CONDITIONS NOT LISTED BELOW 2.5 - 3.5 FOR PROSTHETIC HEART VALVE REPLACEMENT 2.5 - 3.5 RECURRENT THROMBOSIS Performed By: #### P T ####[facility] Tyfdekinxy[address] [place], [place] [address]DrSkylar Leal PT Coag (PPP) [Time] 31.4 s Critically high 9.0-11.6 [facility] Comment on above: Performed By: #### P T ####[facility] F[address]comksgss[address] [place], [place] [address]DrSkylar Leal MAGNESIUMon 03-11-2022 Magnesium [Mass/Vol] 1.6 mg/dL Critically low 1.8-2.4 [facility] Comment on above: Performed By: #### M Anais PHOS ####[facility] Vkwlvsmswr4[address] [place], [place] [address]Jj. Farhat Leal PHOSPHORUSon 03-11-2022 Phosphate [Mass/Vol] 5.3 mg/dL Critically high 2.6-4.7 [facility] Comment on above: Performed By: #### M Anais PHOS ####[facility] Ibgjhgjkas8[address] [place], [place] [address]Lk. Farhat Leal CNOVon 02-26-2022 CNOV Office Visit (HONEY ) ALEX ALMONTE ([id number]) 1945 M TRN Date Time Provider Department 02/26/22 3:00 PM HINA PETERSON During your visit today, we recorded the following information about you: Temperature Pulse Blood pressure 96.6 degrees 75/minute 88/75 Hina Peterson MD, MD 02/26/2022 4:31 PM [facility] [place] DEPARTMENT OF VASCULAR SURGERY OUTPATIENT VISIT DATE [...] his postop visit. He has been in fpc since then and has been recovering from his acute on chronic congestive heart failure. His wound has largely been healing without any issues and the maxwell and sutures were removed at the nursing facility. He comes here with a lateral wound eschar. He denies any fevers, chills, or any drainage. He is on anticoagulation. 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 Patient on mycophenolate mofetil , cellcept and prednisone Mixed hyperlipidemia due to type 2 diabetes mellitus ([facility]) 11/29/2021 Osteomyelitis ([facility]) 11/29/2021 Paroxysmal atrial fibrillation ([facility]) Renal transplant, status post SA node dysfunction ([facility]) s/p pacemaker Type 2 diabetes mellitus with diabetic neuropathy, with long-term current use of insulin ([facility]) 02/24/2002 PAST SURGICAL HISTORY Procedure Laterality [...] by mouth daily with lunch. [employer] [place] with lunch aspirin, enteric coated (ASPIRIN, ENTERIC COATED) 81 mg EC tablet Take 1 tablet by (more content not included)... Normal [facility] PROTIMEon 02-25-2022 INR Coag (PPP) [Relative time] 1.31 {INR} Normal [facility] Comment on above: Performed By: #### P T ####[facility] [address]bffov[address] [place] [address]Dr. Farhat Leal INR GUIDELINES SEE BELOW Normal [facility] Comment on above: Result Comment: MALINA RED INR: 2.0 - 3.0 CONDITIONS NOT LISTED BELOW 2.5 - 3.5 FOR PROSTHETIC HEART VALVE REPLACEMENT 2.5 - 3.5 RECURRENT THROMBOSIS Performed By: #### P T ####[facility] Ykzwvzlvqz48[address] [place], [place] [address]Kp. Farhat Leal PT Coag (PPP) [Time] 13.7 s Critically high 9.0-11.6 [facility] Comment on above: Performed By: #### P T ####[facility] Wihedyqnts[address] [place], [place] [address]Wk. Farhat Leal CNPNon 02-19-2022 CNPN Telephone (TXCTGL) ALEX ALMONTE ([id number]) 1945 M TRN Date Time Provider Department 02/19/22 AUGUSTA MEDRANO TXCTGL During your visit today, we recorded the following information about you: Augusta Medrano RN 02/19/2022 11:16 AM Signed Alex Almonte's nursing facility, [facility], called regarding elevated tacrolimus level [...] by mouth daily with lunch. 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 DIABETES UNCOMPL ADULT-UNCONTRLLED [[id number]] 02/24/2002 KIDNEY TRANSPLANT STATUS [Z94.0] 09/07/2003 PROPHYLACTIC IMMUNOTHERAPY [Z29.8] 07/30/2006 NURSING HOME STEROIDS [[id number]] 07/30/2006 VITAMIN D DEFICIENCY NOS [E55.9] 09/07/2008 [...] perfusion [R09.89] 09/30/2021 PAD (peripheral artery disease) ([facility]) [I73.9] 09/26/2021 Osteomyelitis (HCC) [M86.9] 11/29/2021 Class 1 obesity due to excess calories with ser*11/29/2021 Mixed hyperlipidemia due to type 2 diabetes myles*11/29/2021 Type 2 diabetes mellitus with diabetic peripher*11/29/2021 Atherosclerosis of nightm[place] artery of extremity w*11/29/2021 Malnutrition of moderate degree (HCC) [E44.0] 12/01/2021 Dermatitis associated with moisture [L30.8] 12/04/2021 Encounter Status:Closed by AUGUSTA MEDRANO on 02/19/22 Normal [facility] Sonya 02-18-2022 CNPN Telephone (PODCCP) SUZYALEX Love ([id number]) 1945 M TRN Date Time Provider Department 02/18/22 DEVON MOREIRA PODCCP During your visit today, we recorded the following information about you: Yumiko Denise 02/18/2022 3:16 PM Signed Reason for call: Mr. Almonte would like to request a sooner appointment with Dr. Peterson than 04/13/2022. Contact Name (if not the patient) Alex's nurse Home and cell number(Ask for Alex's nurse) [phone] Diagnosis 4 mo f/u wound check Best [...] by mouth daily with lunch. 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 DIABETES UNCOMPL ADULT-UNCONTRLLED [[id number]] 02/24/2002 KIDNEY TRANSPLANT STATUS [Z94.0] 09/07/2003 PROPHYLACTIC IMMUNOTHERAPY [Z29.8] 07/30/2006 NURSING HOME STEROIDS [[id number]] 07/30/2006 VITAMIN D DEFICIENCY NOS [E55.9] 09/07/2008 [...] diabetes mellitus with diabetic peripher*11/29/2021 Atherosclerosis of night[place] artery of extremity w*11/29/2021 Malnutrition of moderate degree (HCC) [E44.0] 12/01/2021 Dermatitis associated with moisture [L30.8] 12/04/2021 Encounter Status:Closed by CHEASTY (more content not included)... Normal [facility] CNOVon 02-05-2022 CNOV Office Visit (TXCTGL ) ALEX ALMONTE ([id number]) 1945 M TRN Date Time Provider Department 02/05/22 8:20 AM [facility]IDNEY TX[facility] TXCTGL During your visit today, we recorded the following information about you: Temperature Pulse Blood pressure 96.7 degrees 79/minute 72/42 Asia Pike MD 02/05/2022 9:38 AM Signed [facility] Follow up Portions of this note [...] Indra scale at [facility]: 166.2 lbs per patient. Bed sore on coccyx causing discomfort. Being changed regularly at [facility]- reported to be smaller around but still as deep. Patient not very up to date with medications. [facility]. Patient unsure if they have been drawing labs regularly. Last Tac from 01/19: 12.9 and K 5.9. In need of current labs. Lab orders will be sent with patient and follows as below: Kidney and Pancreas Transplant Standing Lab Orders [address] [place], [place] [address] February 05, 2022 Alex Almonte 1945 [id number] STANDARD TESTING: Diagnosis Codes: Z94.0 Kidney Transplant [...] AT YOUR LABORATORY FACILITY AND FAX TO [phone]. PLEASE CALL [phone]. Provider: Dr. Pike Current Outpatient Medications Medication [...] (more content not included)... Normal [facility] PROTEIN CREATININE RATIOon 1 04-08-2021 Protein/Creatinine (U) [Mass ratio] 0.10 mg/mg <0.15 mg/mg [facility] PROTIMEon 02-05-2022 INR Coag (PPP) [Relative time] 2.90 {INR} Normal [facility] Comment on above: Performed By: #### P T ####[facility] [address] [place], [place] [address]PiDr. Farhat Leal INR GUIDELINES SEE BELOW Normal [facility] Comment on above: Result Comment: MALINA RED INR: 2.0 - 3.0 CONDITIONS NOT LISTED BELOW 2.5 - 3.5 FOR PROSTHETIC HEART VALVE REPLACEMENT 2.5 - 3.5 RECURRENT THROMBOSIS Performed By: #### P T ####[facility] [address] [place], [place] [address]Ib. Farhat Leal PT Coag (PPP) [Time] 29.2 s Critically high 9.0-11.6 [facility] Comment on above: Performed By: #### P T ####[facility] [address] [place] [id number]. Farhat Elvis Prot/Creat Uron 02-05-2022 Protein/Creatinine (U) [Mass ratio] 0.10 mg/mg Normal <0.15 [facility] Comment on above: Order Comment: Speci men Type: URINE SPECIMENOrdering Facility: [facility] Address: [address] [place] [address] Result Comment: Adul t Proteinuria Categories: <0.15 [...] 2 890-2 ####[facility] [id number] [place] [address] [place] Protein/Creatinine (U) [Mass ratio]on 02-05-2022 Creatinine (U) [Mass/Vol] 86.9 mg/dL 20.0 - 300.0 mg/dL [facility] Protein (U) [Mass/Vol] 9 mg/dL 0 - 20 mg/dL [facility] Creatinine (U) [Mass/Vol] 86.9 mg/dL Normal 20.0-300.0 [facility] Comment on above: Order Comment: Speci men Type: URINE SPECIMENOrdering Facility: [facility] Address: [address] [place] [address] Performed By: #### 2 890-2 ####[facility] LABIA [id number] [place] [address] [place] Protein (U) [Mass/Vol] 9 mg/dL Normal 0-20 Cl [facility] Comment on above: Order Comment: Speci men Type: URINE SPECIMENOrdering Facility: [facility] Address: [address] [place], [place] [address] Performed By: #### 2 890-2 ####[facility] LABCLIA [id number] [place] [address] [place] URINALYSIS, DIPSTICK ONLYon 02-05-2022 Bilirubin Ql (U) Negative Normal Negative [facility] Comment on above: Order Comment: Speci men Type: URINE SPECIMEN Ordering Facility: [facility] Address: [address] [place], [place] [address] Performed By: #### U A #### [facility] CLIA [id number] [address] [place] [address] [place] Clarity (Unsp spec) Clear Normal Clear [facility] Comment on above: Order Comment: Speci men Type: URINE SPECIMEN Ordering Facility: [facility] Address: [address] [place], [place] [address] Performed By: #### U A #### [facility] CLIA [id number] [address] [place] [address] [place] Color (U) Yellow Normal Yellow [facility] Comment on above: Order Comment: Speci men Type: URINE SPECIMEN Ordering Facility: [facility] Address: [address] [place], [place] [address] Performed By: #### U A #### [facility] CLIA [id number] [address] [place] [address] [place] Glucose Test strip (U) [Mass/Vol] 3+ Abnormal Trace, Negative [facility] Comment on above: Order Comment: Speci men Type: URINE SPECIMEN Ordering Facility: [facility] Address: [address] [place], [place] [address] Performed By: #### U A #### [facility] CLIA [id number] [address] [place] [address] [place] Hemoglobin Ql (U) Negative Normal Negative, Trace [facility] Comment on above: Order Comment: Speci men Type: URINE SPECIMEN Ordering Facility: [facility] Address: [address] [place] [address] Performed By: #### U A #### [facility] CLIA [id number] [address] [place] [address] [place] Ketones Ql (U) Trace Normal Negative, Trace [facility] Comment on above: Order Comment: Speci men Type: URINE SPECIMEN [facility]ing Facility: [facility] Address: [address] [place] [address] Performed By: #### U A #### [facility] CLIA [id number] [address] [place] [address] [place] Leukocyte esterase Test strip Ql (U) Negative Normal Negative, 25 Loraine/mL [facility] Comment on above: Order Comment: Speci men Type: URINE SPECIMEN Ordering Facility: [facility] Address: [address] [place] [address] Performed By: #### U A #### [facility] CLIA [id number] [address] [place] [address] [place] Nitrite Ql (U) Negative Normal Negative [facility] Comment on above: Order Comment: Speci men Type: URINE SPECIMEN Order[facility] Facility: [facility] Address: [address] [place] [address] Performed By: #### U A #### [facility] CLIA [id number] [address] [place] [address] [place] pH (U) 5.5 [pH] Normal 5.0-8.0 [facility] Comment on above: Order Comment: Speci men Type: URINE SPECIMEN [facility]ing Facility: [facility] Address: [address] [place] [address] Performed By: #### U A #### [facility] CLIA [id number] [facility] [address] [place] Protein (U) [Mass/Vol] Negative Normal Trace , Negative [facility] Comment on above: Order Comment: Speci men Type: URINE SPECIMEN [facility] Address: [address] [place] [address] Performed By: #### U A #### [facility] CLIA [id number] [address] [place] [address] [place] Specific gravity (U) [Rel density] 1.014 Normal 1.005-1.030 [facility] Comment on above: Order Comment: Speci men Type: URINE SPECIMEN [facility] Address: [address] [place] [address] Performed By: #### U A #### [facility] CLIA [id number] [address] [place] [address] [place] Urobilinogen Ql (U) 1+ Abnormal Negative [facility] Comment on above: Order Comment: Speci men Type: URINE SPECIMEN [facility] Address: [address] [place] [address] Performed By: #### U A #### [facility] CLIA [id number] [address] [place] [address] [place] Bilirubin Ql (U) Negative Negative [facility] Clarity (Unsp spec) Clear Clear [facility] [place] [facility] Color (U) Yellow Yellow [facility] Glucose Test strip (U) [Mass/Vol] 3+ Abnormal Trace, Negative [facility] Hemoglobin Ql (U) Negative Negative, Trace [facility] Ketones Ql (U) Trace Negative, Trace [facility] Leukocyte esterase Test strip Ql (U) Negative Negative, 25 Loraine/mL [facility] Nitrite Ql (U) Negative Negative [facility] pH (U) 5.5 [pH] 5.0 - 8.0 [facility] Protein (U) [Mass/Vol] Negative Trace , Negative [facility] Specific gravity (U) [Rel density] 1.014 1.005 - 1.030 [facility] Urobilinogen Ql (U) 1+ Abnormal Negative [facility] [place] [facility] FK506 (TACROLIMUS) WHOLE BLO ODon 01-29-2022 Tacrolimus (FK506), Blood 11.1 ng/mL Normal 2.0-20.0 [facility] Comment on above: Result Comment: Trou gh (immediately following transplant) 15.0 . Trough (steady state, 2 weeks or more after transplant): 3.0 - 8.0 . Performed by LC-MS/MS technology. Performed By: #### F K506T ####[facility] [address] [place], [place] [address]Dr. Farhat Leal PHOSPHORUSon 01-26-2022 Phosphate [Mass/Vol] 4.1 mg/dL Normal 2.6-4.7 [facility] Comment on above: Performed By: #### C CARA, PHOS ####[facility] [address] [place], [place] [address]DrSkylar Leal PROF 14(COMP METB)on 022 Albumin [Mass/Vol] 2.1 g/dL Critically low 3.4-5.0 [facility] Comment on above: Performed By: #### C CARA PHOS ####[facility] [address] [place], [place] [address]Dr. Farhat Leal Albumin/Globulin [Mass ratio] 0.6 {ratio} Normal [facility] Comment on above: Performed By: #### C CARA, PHOS ####[facility] [address] [place], [place] [address]Dr. Farhat Leal ALP [Catalytic activity/Vol] 89 U/L Normal 46-116 [facility] Comment on above: Performed By: #### C CARA, PHOS ####[facility] Typly[address] [place], [place] [address]Dr. Farhat Leal ALT [Catalytic activity/Vol] 27 U/L Normal 16-63 [facility] Comment on above: Performed By: #### C CARA, PHOS ####[facility] [address] [place], [place] [address]Dr. Farhat Leal Anion gap [Moles/Vol] 12.3 mmol/L Normal [facility] Comment on above: Performed By: #### C CARA, PHOS ####[facility] [address] [place] [address]Dr. Farhat Leal AST [Catalytic activity/Vol] 53 U/L Critically high 15-37 [facility] Comment on above: Performed By: #### C CARA, PHOS ####[facility] [address] [place], [place] [address]Dr. Farhat Leal Bilirubin [Mass/Vol] 0.6 mg/dL Normal 0.2-1.0 [facility] Comment on above: Performed By: #### C CARA, PHOS ####[facility] L[address]falpmb[address] [place], [place] [address]Dr. Farhat Leal Calcium [Mass/Vol] 8.0 mg/dL Critically low 8.5-10.1 [facility] Comment on above: Performed By: #### C CARA, PHOS ####[facility] Dim[address]of[address]xes[address] [place], [place] [address]Dr. Farhat Leal Chloride [Moles/Vol] 97 mmol/L Critically low 98-107 [facility] Comment on above: Performed By: #### C CARA, PHOS ####[facility] [address] [place], [place] [address]Dr. Farhat Leal CO2 [Moles/Vol] 26.6 mmol/L Normal 21.0-32.[address] [facility] Comment on above: Performed By: #### C CARA, PHOS ####[facility] [address] [place], [place] [address]Dr. Farhat Leal Creatinine [Mass/Vol] 1.03 mg/dL Normal 0.70-1.30 [facility] Comment on above: Performed By: #### C CARA, PHOS ####[facility] [address] [place] [address]Dr. Farhat Leal EGFR-AF SOMALI >60 Normal >=[address] [facility] Comment on above: Performed By: #### C CARA, PHOS ####[facility] [address] [place] [address]Dr. Farhat Leal EGFR-NON AF SOMALI >60 Normal >=60 [facility] Comment on above: Performed By: #### C CARA, PHOS ####[facility] [address] [place] [address]Dr. Farhat Leal Globulin (S) [Mass/Vol] 3.7 g/dL Normal [facility] Comment on above: Performed By: #### C MP, PHOS ####[facility] [address] [place] [address]Dr. Farhat Leal Glucose [Mass/Vol] 287 mg/dL Critically high 74-106 [facility] Comment on above: Performed By: #### C CARA, PHOS ####[facility] [address]kow[address] [place], [place] [address]Dr. Farhat Leal Potassium [Moles/Vol] 3.9 mmol/L Normal 3.5-5.1 [facility] Comment on above: Performed By: #### C CARA, PHOS ####[facility] [address] [place], [place] [address]Dr. Farhat Leal Protein [Mass/Vol] 5.8 g/dL Critically low 6.4-8.2 [facility] Comment on above: Performed By: #### C CARA, PHOS ####[facility] [address] [place], [place] [address]Dr. Farhat Leal Sodium [Moles/Vol] 132 mmol/L Critically low 136-145 [facility] Comment on above: Performed By: #### C CARA, PHOS ####[facility] [address] [place], [place] [address]Dr. Farhat Leal Urea nitrogen [Mass/Vol] 23.0 mg/dL Critically high 7.0-18.0 [facility] Comment on above: Performed By: #### C MP, PHOS ####[facility] [address] [place], [place] [address]Dr. Farhat Leal Urea nitrogen/Creatinine [Mass ratio] 22.3 mg/mg Normal [facility] Comment on above: Performed By: #### C MP, PHOS ####[facility] [address] [place] [id number]. Farhat Leal FK506 (TACROLIMUS) WHOLE BLO ODon 01-21-2022 Tacrolimus (FK506), Blood 12.2 ng/mL Normal 2.0-20.0 [facility] Comment on above: Result Comment: Trou gh (immediately following transplant) 15.0 . Trough (steady state, 2 weeks or more after transplant): 3.0 - 8.0 . Performed by LC-MS/MS technology. Performed By: #### F K506T ####[facility] [address] [place] [id number]. Farhat Leal ACID FAST SMEAR AND CXon Acid Fast Culture Negative Normal [facility] Comment on above: Result Comment: No a abdiel fast bacilli isolated after 6 weeks. Performed By: #### A FB ####[facility] [address] [place] [address]Dr. Farhat Leal Acid Fast Smear Negative Normal [facility] Comment on above: Performed By: #### A FB ####[facility] [address] [place] [id number]. Farhat Leal [employer] Specimen Processing Tissue Grinding Normal [facility] Comment on above: Performed By: #### A FB ####[facility] [address] [place] [id number]. Farhat Leal [facility]-2022 DIAMANTEN Telephone (KIMBERLY) ALEX ALMONTE ([id number]) 1945 M TRN Date Time Provider Department 01/20/22 VAN OLIVAREZ During your visit today, we recorded the following information about you: Van Olivarez APRN.CNP 01/20/2022 1:14 PM Signed Labs noted from yesterday. Pt is currently [facility], I spoke with the Nurse, the results has been addressed by Physician caring for pt. He had been placed on Chlor Con and this has been discontinued and hyperkalemia has been treated. Van Olivarez APRN.DIAMANTE Allergies As of Date: 01/20/2022 Noted Allergy Reaction PYRIDOSTIGMINE BROMIDE 08/04/2021 8 - GI Upset Date Reviewed: 01/15/2022 Reviewed by: Raquel Tai APRN.CHIEF SCIENTIST - Fully Assessed Reason for Visit: Results [...] by mouth daily with lunch. 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 Atherosclerosis of [place] artery of extremity w*11/29/2021 Malnutrition of moderate degree (HCC) [E44.0] 12/01/2021 Dermatitis associated with moisture [L30.8] 12/04/2021 Encounter Status:Closed by VAN OLIVAREZ on 01/20/22 Normal [facility] Orders Onlyon 01-20-2022 Orders Only [id number] Alex Almonte 1945 Date Provider Department Center 01/20/2022 Francisco Javier-SUSIE HERNANDES [facility] No family history on file Normal [facility] PROF 14(COMP METB)on 022 Albumin [Mass/Vol] 1.9 g/dL Critically low 3.4-5.0 [facility] Comment on above: Performed By: #### C MP ####[facility] [address] [place] [address]Dr. Farhat Leal Albumin/Globulin [Mass ratio] 0.5 {ratio} Normal [facility] Comment on above: Performed By: #### C MP ####[facility] [address] [place] [address]Dr. Farhat Leal ALP [Catalytic activity/Vol] 78 U/L Normal 46-116 [facility] Comment on above: Performed By: #### C MP ####[facility] [address] [place] [address]Dr. Farhat Leal ALT [Catalytic activity/Vol] 22 U/L Normal 16-63 [facility] Comment on above: Performed By: #### C MP ####[facility] [address] [place] [id number]. Farhat Leal Anion gap [Moles/Vol] 8.0 mmol/L Normal [facility] Comment on above: Performed By: #### C MP ####[facility] [address] [place] [address]Dr. Farhat Leal AST [Catalytic activity/Vol] 92 U/L Critically high 15-37 [facility] Comment on above: Performed By: #### C MP ####[facility] [address] [place] [address]Dr. Farhat Leal Bilirubin [Mass/Vol] 0.7 mg/dL Normal 0.2-1.0 [facility] Comment on above: Performed By: #### C MP ####[facility] [address] [place], [place] [address]Dr. Farhat Leal Calcium [Mass/Vol] 7.8 mg/dL Critically low 8.5-10.1 [facility] Comment on above: Performed By: #### C MP ####[facility] [address] [place], [place] [address]Dr. Farhat Leal Chloride [Moles/Vol] 99 mmol/L Normal 98-107 [facility] Comment on above: Performed By: #### C MP ####[facility] [address] [place], [place] [address]Dr. Farhat Leal CO2 [Moles/Vol] 30.9 mmol/L Normal 21.0-32.[address] [facility] Comment on above: Performed By: #### C MP ####[facility] [address] [place], [place] [address]Dr. Farhat Elvis Creatinine [Mass/Vol] 0.95 mg/dL Normal 0.70-1.30 [facility] Comment on above: Performed By: #### C MP ####[facility] Tg[address]vfckhb[address] [place], [place] [address]Dr. Farhat Elvis EGFR-AF SOMALI >60 Normal >=[address] [facility] Comment on above: Performed By: #### C MP ####[facility] [address]zqlbfq[address] [place], [place] [address]Dr. Farhat Leal EGFR-NON AF SOMALI >60 Normal >=60 [facility] Comment on above: Performed By: #### C MP ####[facility] [address] [place] [address]Dr. Farhat Leal Globulin (S) [Mass/Vol] 3.9 g/dL Normal [facility] Comment on above: Performed By: #### C MP ####[facility] [address] [place] [address]Dr. Farhat Leal Glucose [Mass/Vol] 124 mg/dL Critically high 74-106 [facility] Comment on above: Performed By: #### C MP ####[facility] [address] [place] [address]Dr. Farhat Leal Potassium [Moles/Vol] 5.9 mmol/L Critically high 3.5-5.1 [facility] Comment on above: Performed By: #### C MP ####[facility] [address]zg[address]avx[address] [place] [address]Dr. Farhat Leal Protein [Mass/Vol] 5.8 g/dL Critically low 6.4-8.2 [facility] Comment on above: Performed By: #### C MP ####[facility] [address]ws[address]ot[address] [place], [place] [address]Dr. Farhat Leal Sodium [Moles/Vol] 132 mmol/L Critically low 136-145 [facility] Comment on above: Performed By: #### C MP ####[facility] [address]rmt[address] [place] [address]Dr. Farhat Leal Urea nitrogen [Mass/Vol] 18.0 mg/dL Normal 7.0-18.0 [facility] Comment on above: Performed By: #### C MP ####[facility] [address] [place] [address]Dr. Farhat Leal Urea nitrogen/Creatinine [Mass ratio] 18.9 mg/mg Normal [facility] Comment on above: Performed By: #### C MP ####[facility] [address]vfi[address] [place] [address]Dr. Farhat Leal INR (POC)on 01-12-2022 INR Coag (PPP) [Relative time] 2.6 {INR} High 0.8 - 1.2 [facility] Internal Quality Check Acceptable Cl [facility] ACID FAST SMEAR AND CXon Acid Fast Culture Negative Normal [facility] Comment on above: Result Comment: No a abdiel fast bacilli isolated after 6 weeks. Performed By: #### A FB ####[facility] [address] [place], [place] [address]Lr. Farhat Leal Acid Fast Smear Negative Normal [facility] Comment on above: Performed By: #### A FB ####[facility] [address]ms[address]jq[address] [place] [phone]. Farhat [employer] Specimen Processing Direct Inoculation [facility] Comment on above: Performed By: #### A FB ####[facility] [address] [place], [place] [address]Dr. Farhat Leal ACID FAST SMEAR AND CXon Acid Fast Culture Negative Normal [facility] Comment on above: Result Comment: No a abdiel fast bacilli isolated after 6 weeks. Performed By: #### A FB ####[facility] [address] [place], [place] [address]Dr. Madelynlorri Leal Acid Fast Smear Negative Normal [facility] Comment on above: Performed By: #### A FB ####[facility] R[address] [place] [address]Dr. Farhat Leal [employer] Specimen Processing Tissue Grinding [facility] Comment on above: Performed By: #### A FB ####[facility] [address] [place] [id number]. Farhat Leal FUNGAL CULTUREon 01-02-2022 Fungus (Mycology) Culture Final report Normal [facility] Comment on above: Performed By: #### C XFUN ####[facility] [address]bs[address]ud[address] [place], [place] [address]Dr. Farhat Leal Fungus Stain Final report Normal [facility] Comment on above: Performed By: #### C XFUN ####[facility] [address] [place] [address]. Farhat Leal Result 1 Comment Normal [facility] Comment on above: Result Comment: ANNI/ Calcofluor preparation: no fungus observed. Performed By: #### C XFUN ####[facility] [address] [place], [place] [address]Skylar Leal Result Comment: No y east or mold isolated after 4 weeks. FK506 (TACROLIMUS) WHOLE BLO ODon 12-31-2021 Tacrolimus (FK506), Blood 7.7 ng/mL Normal 2.0-20.0 [facility] Comment on above: Result Comment: Trou gh (immediately following transplant) 15.0 . Trough (steady state, 2 weeks or more after transplant): 3.0 - 8.0 . Performed by LC-MS/MS technology. Performed By: #### F [id number] ####[facility] Plx[address] [place] [address]. Farhat Leal HEMOGRAM AND PLATELon 2021 Hematocrit (Bld) [Volume fraction] 27.1 % Critically low 42.0-54.0 [facility] Comment on above: Performed By: #### H H ####[facility] Ambnrwsrow[address] [place], [place] [address]Skylar Leal Hemoglobin (Bld) [Mass/Vol] 8.7 g/dL Critically low 14.0-18.0 [facility] Comment on above: Performed By: #### H H ####[facility] Pftezljdtc[address] [place], [place] [address]Skylar Leal MCH (RBC) [Entitic mass] 30.3 pg Normal 25.9-34.0 [facility] Comment on above: Performed By: #### H H ####[facility] Foisisdfoc[address] [place], [place] [address]Skylar Leal MCHC (RBC) [Mass/Vol] 32.1 g/dL Normal 29.9-35.2 [facility] Comment on above: Performed By: #### H H ####[facility] Xhfoqlsdfa[address] [place], [place] [address]Skylar Leal MCV (RBC) [Entitic vol] 94.4 fL Critically high 80.0-94.0 [facility] Comment on above: Performed By: #### H H ####[facility] Zmleteosyz[address] [place] [address]Dr. Farhat Leal PLT 355 103/ul Normal 150-450 [facility] Comment on above: Performed By: #### H H ####[facility] Gnujfudrgf[address] [place] [address]Dr. Farhat Elvis RBC 2.87 106/ul Critically low 4.70-6.10 [facility] Comment on above: Performed By: #### H H ####[facility] Zeslqubynw[address] [place] [address]Dr. Madelynlorri Elvis WBC 6.0 103/ul Normal 4.0-11.0 [facility] Comment on above: Performed By: #### H H ####[facility] Smjrbigdiy4[address] [place] [address]Dr. Farhat Leal PHOSPHORUSon 12-29-2021 Phosphate [Mass/Vol] 2.5 mg/dL Critically low 2.6-4.7 [facility] Comment on above: Performed By: #### P HOS, CMP ####[facility] Dmarrjcfuv[address] [place], [place] [address]DrSkylar Leal PROF 14(COMP METB)on 022 Albumin [Mass/Vol] 1.7 g/dL Critically low 3.4-5.0 [facility] Comment on above: Performed By: #### P HOS, CMP ####[facility] Zmyvwevwev[address] [place] [address]Dr. Faraht Leal Albumin/Globulin [Mass ratio] 0.5 {ratio} Normal [facility] Comment on above: Performed By: #### P HOS, CMP ####[facility] Mhqvscwyft64[address] [place], [place] [address]Dr. Madelynlorri Leal ALP [Catalytic activity/Vol] 78 U/L Normal 46-116 [facility] Comment on above: Performed By: #### P HOS, CMP ####[facility] Rgykihfnzb817[address] [place], [place] [address]Dr. Farhat Leal ALT [Catalytic activity/Vol] 12 U/L Critically low 16-63 [facility] Comment on above: Performed By: #### P HOS, CMP ####[facility] Jyrmzpdquq30[address] [place] [address]Dr. Farhat Leal Anion gap [Moles/Vol] 5.1 mmol/L Normal [facility] Comment on above: Performed By: #### P HOS, CMP ####[facility] Mrddupznoc3158 [place] [address]Dr. Farhat Leal AST [Catalytic activity/Vol] 22 U/L Normal 15-37 [facility] Comment on above: Performed By: #### P HOS, CMP ####[facility] Hakkankabt13[address] [place], [place] [address]Dr. Farhat Leal Bilirubin [Mass/Vol] 0.6 mg/dL Normal 0.2-1.0 [facility] Comment on above: Performed By: #### P HOS, CMP ####[facility] Esqtfsprxi000[address] [place], [place] [address]Dr. Farhat Leal Calcium [Mass/Vol] 8.1 mg/dL Critically low 8.5-10.1 [facility] Comment on above: Performed By: #### P HOS, CMP ####[facility] Xldkbpggqb5[address] [place], [place] [address]Dr. Farhat Leal Chloride [Moles/Vol] 100 mmol/L Normal 98-107 [facility] Comment on above: Performed By: #### P HOS, CMP ####[facility] Btabdojnnm40[address] [place] [address]Dr. Farhat Leal CO2 [Moles/Vol] 34.2 mmol/L Critically high 21.0-32.0 [facility] Comment on above: Performed By: #### P HOS, CMP ####[facility] Gmdyqeynwv5716 [place] [address]Dr. Farhat Leal Creatinine [Mass/Vol] 0.92 mg/dL Normal 0.70-1.30 [facility] Comment on above: Performed By: #### P HOS, CMP ####[facility] Ctwmieznna1341 [place] [phone]. Farhat Leal EGFR-AF SOMALI >60 Normal >=60 [facility] Comment on above: Performed By: #### P HOS, CMP ####[facility] Yjjfvqxubb4118 [place] [phone]. Farhat Leal EGFR-NON AF SOMALI >60 Normal >=60 [facility] Comment on above: Performed By: #### P HOS, CMP ####[facility] Cngxfkoeht6723 [place] [phone]. Farhat Leal Globulin (S) [Mass/Vol] 3.3 g/dL Normal [facility] Comment on above: Performed By: #### P HOS, CMP ####[facility] Nyukeujpgc[address] [place], [place] [address]Dr. Farhat Leal Glucose [Mass/Vol] 116 mg/dL Critically high 74-106 [facility] Comment on above: Performed By: #### P HOS, CMP ####[facility] Xoenhlfklj[address] [place], [place] [address]Dr. Farhat Leal Potassium [Moles/Vol] 3.3 mmol/L Critically low 3.5-5.1 [facility] Comment on above: Performed By: #### P HOS, CMP ####[facility] Fjvqnhnuxt299[address] [place], [place] [address]Dr. Farhat Leal Protein [Mass/Vol] 5.0 g/dL Critically low 6.4-8.2 [facility] Comment on above: Performed By: #### P HOS, CMP ####[facility] Mfdqjoubgg9459 [place] [address]Dr. Farhat Leal Sodium [Moles/Vol] 136 mmol/L Normal 136-145 [facility] Comment on above: Performed By: #### P HOS, CMP ####[facility] Fseawpgtka37[address] [place], [place] [address]Dr. Farhat Leal Urea nitrogen [Mass/Vol] 14.0 mg/dL Normal 7.0-18.0 [facility] Comment on above: Performed By: #### P HOS, CMP ####[facility] Dridnmdihw5345[address] [place], [place] [address]Dr. Farhat Leal Urea nitrogen/Creatinine [Mass ratio] 15.2 mg/mg Normal [facility] Comment on above: Performed By: #### P HOS, CMP ####[facility] Aifqozhizb04[address] [place], [place] [address]Dr. Farhat Leal PROTIMEon 12-29-2021 INR Coag (PPP) [Relative time] 1.26 {INR} Normal [facility] Comment on above: Performed By: #### P T ####[facility] Tejlivdosa7[address] [place], [place] [address]Dr. Farhat Leal INR GUIDELINES SEE BELOW Normal [facility] Comment on above: Result Comment: MALINA RED INR: 2.0 - 3.0 CONDITIONS NOT LISTED BELOW 2.5 - 3.5 FOR PROSTHETIC HEART VALVE REPLACEMENT 2.5 - 3.5 RECURRENT THROMBOSIS Performed By: #### P T ####[facility] Pnwkbxwauc65[address] [place], [place] [address]Dr. Farhat Leal PT Coag (PPP) [Time] 13.4 s Critically high 9.0-11.6 [facility] Comment on above: Performed By: #### P T ####[facility] Dsatcoxyfd7[address] [place], [place] [address]Dr. Farhat Leal XR MODIFIED BARIUM SWALLOWon 12-25-2021 XR MODIFIED BARIUM SWALLOW Normal [facility] FUNGAL CULTUREon 12-24-2021 Fungus (Mycology) Culture Final report Normal [facility] Comment on above: Performed By: #### C XFUN ####[facility] Ovlqeujjtm[address] [place], [place] [address]Dr. Farhat Leal Fungus Stain Final report Normal [facility] Comment on above: Performed By: #### C XFUN ####[facility] Asidpreqya28[address] [place], [place] [address]Dr. Farhat Leal Result 1 Comment Normal [facility] Comment on above: Result Comment: ANNI/ Calcofluor preparation: no fungus observed. Performed By: #### C XFUN ####[facility] Ymjrpfubyh7[address] [place], [place] [address]Dr. Farhat Leal Result Comment: No y east or mold isolated after 4 weeks. VANCOMYCIN TROUGHon 12-21-19 VANCOMYCIN TROUGH 14.4 ug/ml Normal 5.0-20.0 [facility] Comment on above: Performed By: #### V ANCT ####[facility] Ypmrhbtrzg1615 [place] [address]Dr. Farhat Leal CBC AUTO DIFFon 12-14-2021 BASO # 0.0 103/ul Normal 0.0-0.1 [facility] Comment on above: Performed By: #### C BC ####[facility] Amibxvptdy7053 [place] [address]Dr. Farhat Leal Basophils/100 WBC (Bld) 0.2 % Normal 0.2-2.0 [facility] Comment on above: Performed By: #### C BC ####[facility] Yueufnzles[address] [place], [place] [address]Dr. Farhat Leal EO # 0.2 103/ul Normal 0.0-0.7 [facility] Comment on above: Performed By: #### C BC ####[facility] Byluibzyjs5[address] [place] [address]Dr. Farhat Leal Eosinophils/100 WBC (Bld) 2.1 % Normal 0.9-7.0 [facility] Comment on above: Performed By: #### C BC ####[facility] Arxsqplpak25[address] [place] [address]Dr. Farhat Leal Erythrocyte distribution width (RBC) [Ratio] 18.2 % Critically high 11.0-15.0 [facility] Comment on above: Performed By: #### C BC ####[facility] Taiepjcsdu[address] [place] [address]DrSkylar Leal Hematocrit (Bld) [Volume fraction] 25.8 % Critically low 42.0-54.0 [facility] Comment on above: Performed By: #### C BC ####[facility] Iqeqfgmjia9053 [place] [address]Dr. Farhat Leal Hemoglobin (Bld) [Mass/Vol] 8.0 g/dL Critically low 14.0-18.0 [facility] Comment on above: Performed By: #### C BC ####[facility] Dvuwdlikpj0765 [place] [address]DrSkylar Leal IG # 0.08 10e3/ul Critically high 0.00-0.03 [facility] Comment on above: Performed By: #### C BC ####[facility] Ljqjbjwwll3978 [place] [address]DrSkylar Leal IG % 0.7 % Critically high 0.0-0.5 [facility] Comment on above: Performed By: #### C BC ####[facility] Cxvfiqtjfn9822 [place] [address]DrSkylar Leal LYMPH # 0.9 103/ul Critically low 1.2-3.8 [facility] Comment on above: Performed By: #### C BC ####[facility] Gjczalzbmd5518 [place] [address]DrSkylar Leal Lymphocytes/100 WBC (Bld) 8.7 % Critically low 20.5-60.0 [facility] Comment on above: Performed By: #### C BC ####[facility] Xzbprntjfx6426 [place] [address]DrSkylar Leal MANUAL DIFF REQ NO Normal [facility] Comment on above: Performed By: #### C BC ####[facility] Knnrzgbhcd5761 [place] [address]DrSkylar Leal MCH (RBC) [Entitic mass] 30.0 pg Normal 25.9-34.0 [facility] Comment on above: Performed By: #### C BC ####[facility] Ghfzenzkwo8944 [place] [phone] Leal MCHC (RBC) [Mass/Vol] 31.0 g/dL Normal 29.9-35.2 [facility] Comment on above: Performed By: #### C BC ####[facility] Gxdxnfdwjx5167 [place] [phone] Leal MCV (RBC) [Entitic vol] 96.6 fL Critically high 80.0-94.0 [facility] Comment on above: Performed By: #### C BC ####[facility] Wamvhwpgtz0076 [place] [phone]. Farhat Leal MONO # 0.7 103/ul Normal 0.3-0.8 [facility] Comment on above: Performed By: #### C BC ####[facility] Gcxrivtgzo0872 [place] [phone]. Farhat Leal Monocytes/100 WBC (Bld) 6.7 % Normal 1.7-12.0 [facility] Comment on above: Performed By: #### C BC ####[facility] Sfigqfkjvj5136 [place] [phone]. Farhat Leal NEUT # 8.8 103/ul Critically high 1.4-6.5 [facility] Comment on above: Performed By: #### C BC ####[facility] Meqkdbkpza1948 [place] [address]Dr. Farhat Leal Neutrophils/100 WBC (Bld) 81.6 % Critically high 43.0-75.0 [facility] Comment on above: Performed By: #### C BC ####[facility] Hnuywucmdv1557 [place] [phone]. Farhat Leal Platelet mean volume (Bld) [Entitic vol] 10.5 fL Normal 9.5-13.5 [facility] Comment on above: Performed By: #### C BC ####[facility] Hvxlzftgpr4775 [place] [phone]. Farhat Leal PLT 285 103/ul Normal 150-450 [facility] Comment on above: Performed By: #### C BC ####[facility] Zmvlpdthbg0077 [place] [phone]. Farhat Leal RBC 2.67 106/ul Critically low 4.70-6.10 [facility] Comment on above: Performed By: #### C BC ####[facility] Rznqwtlszt1043 [place] [phone]. Farhat Leal WBC 10.7 103/ul Normal 4.0-11.0 [facility] Comment on above: Performed By: #### C BC ####[facility] Sdxswbatfm0412 [place] [address]Dr. Farhat Leal PROF CHEM 8 (BAS METB)on Anion gap [Moles/Vol] 12.4 mmol/L Normal [facility] Comment on above: Performed By: #### B MP ####[facility] Ohfsaywvqa53[address] [place] [address]Dr. Farhat Leal Calcium [Mass/Vol] 7.8 mg/dL Critically low 8.5-10.1 [facility] Comment on above: Performed By: #### B MP ####[facility] Hetlbsovwf[address] [place], [place] [address]Dr. Farhat Leal Chloride [Moles/Vol] 102 mmol/L Normal 98-107 [facility] Comment on above: Performed By: #### B MP ####[facility] Rdbwqpxwzu8[address] [place], [place] [address]Dr. Farhat Leal CO2 [Moles/Vol] 28.1 mmol/L Normal 21.0-32.0 [facility] Comment on above: Performed By: #### B MP ####[facility] Tkluczsrlw407[address] [place], [place] [address]Dr. Farhat Leal Creatinine [Mass/Vol] 1.24 mg/dL Normal 0.70-1.30 [facility] Comment on above: Performed By: #### B MP ####[facility] Ombpqvdyvl278[address] [place], [place] [address]Dr. Farhat Leal EGFR-AF SOMALI >60 Normal >=[address] [facility] Comment on above: Performed By: #### B MP ####[facility] Roxxgquzqh7764[address] [place], [place] [address]Dr. Farhat Leal EGFR-NON AF SOMALI 57 mL/min/1.73m2 Critically low >=60 [facility] Comment on above: Performed By: #### B MP ####[facility] Kxwspgbuds8554[address] [place], [place] [address]DrSkylar Leal Glucose [Mass/Vol] 296 mg/dL Critically high 74-106 [facility] Comment on above: Performed By: #### B MP ####[facility] Cmfzkpuqhz768[address] [place], [place] [address]Dr. Farhat Leal Potassium [Moles/Vol] 3.5 mmol/L Normal 3.5-5.1 [facility] Comment on above: Performed By: #### B MP ####[facility] Arazmdhctn[address] [place], [place] [address]Dr. Farhat Leal Sodium [Moles/Vol] 139 mmol/L Normal 136-145 [facility] Comment on above: Performed By: #### B MP ####[facility] Bmmgztuvkx32[address] [place], [place] [address]Dr. Farhat Leal Urea nitrogen [Mass/Vol] 27.0 mg/dL Critically high 7.0-18.0 [facility] Comment on above: Performed By: #### B MP ####[facility] Sgealmymww6[address] [place], [place] [address]Dr. Farhat Leal Urea nitrogen/Creatinine [Mass ratio] 21.8 mg/mg Normal [facility] Comment on above: Performed By: #### B MP ####[facility] Oebocszczw94[address] [place], [place] [address]Dr. Farhat Leal PROTIMEon 12-14-2021 INR Coag (PPP) [Relative time] 3.36 {INR} Normal [facility] Comment on above: Performed By: #### P T ####[facility] Ocqosldyjs[address] [place], [place] [address]Dr. Farhat Leal INR GUIDELINES SEE BELOW Normal [facility] Comment on above: Result Comment: MALINA RED INR: 2.0 - 3.0 CONDITIONS NOT LISTED BELOW 2.5 - 3.5 FOR PROSTHETIC HEART VALVE REPLACEMENT 2.5 - 3.5 RECURRENT THROMBOSIS Performed By: #### P T ####[facility] Jocovjpuil[address] [place], [place] [address]Dr. Farhat Leal PT Coag (PPP) [Time] 33.5 s Critically high 9.0-11.6 [facility] Comment on above: Performed By: #### P T ####[facility] Cmeqafybky[address] [place], [place] [address]JaSkylar Leal XR CHEST 1 Von 12-14-2021 XR CHEST 1 V Normal [facility] No Panel Informationon 12-01 BLANK _ [facility] Implant Date 04/22/2012 [facility] CHECKon AMS Duration (ms) 5 of 8 [facility] AMS Fallback Rate (bpm) DDIR [facility] AV Delay Adaptive Paced Minimum (ms) 300 ms [facility] AV Delay Adaptive Rate Maximum (bpm) 130 {beats}/min [facility] AV Delay Adaptive Rate Minimum (bpm) 70 {beats}/min [facility] AV Delay Adaptive Sensed Minimum (ms) 300 ms [facility] AV Delay Paced (ms) 300 ms [facility] AV Delay Sensed (ms) 300 ms [facility] Jaciel LV Pacing Polarity Unknown [facility] Jaciel LV Sensing Polarity Unknown [facility] Jaciel RA Pacing Amplitude (volts) 2.4 V [facility] Jaciel RA Pacing Polarity BI [facility] Jaciel RA Pacing Pulse Width (ms) 0.4 ms [facility] Jaciel RA Sensing Amplitude (mvolts) AUTO [facility] Jaciel RA Sensing Blanking Period (ms) 56 ms [facility] Jaciel RA Sensing Polarity BI [facility] Jaciel RA Sensing Refractory Period (ms) AUTO [facility] Jaciel RV Pacing Amplitude (volts) 3.4 V [facility] Jaciel RV Pacing Polarity BI [facility] Jaciel RV Pacing Pulse Width (ms) 0.4 ms [facility] Jaciel RV Sensing Amplitude (mvolts) AUTO [facility] Jaciel RV Sensing Blanking Period (ms) 30 ms [facility] Jaciel RV Sensing Polarity BI [facility] Jaciel RV Sensing Refractory Period (ms) 250 ms [facility] Hysteresis Rate (bpm) 60 {beats}/min [facility] Lead1 Mfg SUZETTE [facility] Lead2 Mfg SUZETTE [facility] Location RA [facility] Location RV [facility] Lower Rate (bpm) 60 {beats}/min [facility] Max Sensor Rate (bmp) 130 {beats}/min [facility] Model 327654 Monika Dominguez [facility] Model 641255 [facility] Model 392293 [facility] Pacemaker Dependent? NO [facility] PM-Device Mfg BIO [facility] PM-PMT Intervention ON [facility] PM-PVC Intervention ON [facility] PM-Rate Modulation Acceleration Reaction 4 s [facility] PM-Rate Modulation Deceleration 0.5 m [facility] PM-Rate Modulation Starr 23 [facility] PM-Rate Modulation Threshold Medium [facility] RA Bipolar Impedance ohms 448 ohm [facility] Rhythm AF with controlled ventricular rate. [facility] RV Bipolar Impedance ohms 390 ohm [facility] Serial Number [id number] [facility] Serial Number [id number] [facility] Serial Number [id number] [facility] Thresh RA Sensing Amplitude (mvolts) 2.4 mV [facility] Thresh RV Capture Amplitude (volts) 1.8 V [facility] Thresh RV Capture Duration (ms) 0.4 ms [facility] Thresh RV Sensing Amplitude (mvolts) 2.4 mV [facility] Tracking Rate (bpm) 160 {beats}/min [facility] BNPon 11-28-2021 Natriuretic peptide B (Bld) [Mass/Vol] 85391.0 pg/mL Critically high <=1,800.0 [facility] Comment on above: Performed By: #### C MP, BNP, CRP ####[facility] Cwwbkhsabt[address] [place], [place] [address]Dr. aFrhat Leal CBC AUTO DIFFon 11-28-2021 BASO # 0.0 103/ul Normal 0.0-0.1 [facility] Comment on above: Performed By: #### C BC ####[facility] Zgelosejvv18[address] [place], [place] [address]Dr. Farhat Leal Basophils/100 WBC (Bld) 0.3 % Normal 0.2-2.0 [facility] Comment on above: Performed By: #### C BC ####[facility] Jqwojsqfaj9[address] [place], [place] [address]Dr. Farhat Leal EO # 0.1 103/ul Normal 0.0-0.7 [facility] Comment on above: Performed By: #### C BC ####[facility] Zgwrtvbrye3[address] [place], [place] [address]Dr. Farhat Leal Eosinophils/100 WBC (Bld) 1.0 % Normal 0.9-7.0 [facility] Comment on above: Performed By: #### C BC ####[facility] Snxxgnueuv4158 [place] [address]Dr. Farhat Leal Erythrocyte distribution width (RBC) [Ratio] 14.0 % Normal 11.0-15.0 [facility] Comment on above: Performed By: #### C BC ####[facility] Elfpwdaylb4010[address] [place], [place] [address]Dr. Farhat Leal Hematocrit (Bld) [Volume fraction] 27.6 % Critically low 42.0-54.0 [facility] Comment on above: Performed By: #### C BC ####[facility] Zwucgppkjb103[address] [place], [place] [address]Dr. Farhat Leal Hemoglobin (Bld) [Mass/Vol] 9.0 g/dL Critically low 14.0-18.0 [facility] Comment on above: Performed By: #### C BC ####[facility] Eeqvgczpsz02[address] [place], [place] [address]Dr. Farhat Leal IG # 0.12 10e3/ul Critically high 0.00-0.03 [facility] Comment on above: Performed By: #### C BC ####[facility] Qkmilzmsaj730[address] [place], [place] [address]Dr. Farhat Leal IG % 1.0 % Critically high 0.0-0.5 [facility] Comment on above: Performed By: #### C BC ####[facility] Eefkvjedxi10[address] [place], [place] [address]Dr. Farhat Leal LYMPH # 1.2 103/ul Normal 1.2-3.8 [facility] Comment on above: Performed By: #### C BC ####[facility] Caubkmafai[address] [place], [place] [address]Dr. Farhat Leal Lymphocytes/100 WBC (Bld) 9.9 % Critically low 20.5-60.0 [facility] Comment on above: Performed By: #### C BC ####[facility] Cdgtsvblah4[address] [place], [place] [address]Dr. Farhat Leal MANUAL DIFF REQ NO Normal [facility] Comment on above: Performed By: #### C BC ####[facility] Fcjfctpgks5392 [place] [phone]. Farhat Elvis MCH (RBC) [Entitic mass] 30.0 pg Normal 25.9-34.0 [facility] Comment on above: Performed By: #### C BC ####[facility] Bdpwiclryy6761 [place] [phone]. Farhat Elvis MCHC (RBC) [Mass/Vol] 32.6 g/dL Normal 29.9-35.2 [facility] Comment on above: Performed By: #### C BC ####[facility] Xzryuqnzpk9248 [place] [address]Dr. Madelynlorri Leal MCV (RBC) [Entitic vol] 92.0 fL Normal 80.0-94.0 [facility] Comment on above: Performed By: #### C BC ####[facility] [address] [place], [place] [address]DrSkylar Leal MONO # 1.1 103/ul Critically high 0.3-0.8 [facility] Comment on above: Performed By: #### C BC ####[facility] Sygqilkoxu35[address] [place] [address]Dr. Farhat Leal Monocytes/100 WBC (Bld) 9.3 % Normal 1.7-12.0 [facility] Comment on above: Performed By: #### C BC ####[facility] Qcodsskbwu7834[address] [place], [place] [address]Dr. Farhat Leal NEUT # 9.3 103/ul Critically high 1.4-6.5 [facility] [place] [facility] Comment on above: Performed By: #### C BC ####[facility] Rqnwgdaltm[address] [place], [place] [id number] Leal Neutrophils/100 WBC (Bld) 78.5 % Critically high 43.0-75.0 [facility] Comment on above: Performed By: #### C BC ####[facility] Tkjcqcwatf9801 [place] [address]DrSkylar Leal Platelet mean volume (Bld) [Entitic vol] 9.6 fL Normal 9.5-13.5 [facility] Comment on above: Performed By: #### C BC ####[facility] Fkwygrtvpy7068 [place], [place] [address]Gx. Farhat Leal PLT 357 103/ul Normal 150-450 [facility] Comment on above: Performed By: #### C BC ####[facility] Xqifogzkwf2681 [place], [place] [address]Xy. Farhat Leal RBC 3.00 106/ul Critically low 4.70-6.10 [facility] Comment on above: Performed By: #### C BC ####[facility] Nbepczxqaa3081 [place], [place] [address]Zf. Farhat Leal WBC 11.8 103/ul Critically high 4.0-11.0 [facility] Comment on above: Performed By: #### C BC ####[facility] Ugzjfmmwou9409 [place], [place] [address]Hw. Farhat Leal CRPon 11-28-2021 CRP 20.9 mg/dL Critically high <=1.0 [facility] Comment on above: Performed By: #### C MP, BNP, CRP ####[facility] [address]tr[address] [place] [id number]. Farhat Leal CULTURE OTHERon 11-28-2021 CULTURE OTHER Normal [facility] Comment on above: Performed By: #### O THCX ####[facility] Rvuqzksfzr1709 [place] [phone]. Farhat Leal CULTURE OTHER Normal [facility] Comment on above: Performed By: #### O THCX ####[facility] Kjmuatrhsd0263 [place], [place] [address]Ri. Farhat Leal PROF 14(COMP METB)on 022 Albumin [Mass/Vol] 1.4 g/dL Critically low 3.4-5.0 [facility] Comment on above: Performed By: #### C MP, BNP, CRP ####[facility] Qmhmojobeh0032 [place] [phone]. Farhat Leal Albumin/Globulin [Mass ratio] 0.4 {ratio} Normal [facility] Comment on above: Performed By: #### C MP, BNP, CRP ####[facility] Qwjnaywaik4775 [place] [address]Dr. Farhat Elvis ALP [Catalytic activity/Vol] 82 U/L Normal 46-116 [facility] Comment on above: Performed By: #### C MP, BNP, CRP ####[facility] Iuxaezycwv6230 [place] [address]Dr. Madelynlorri Leal ALT [Catalytic activity/Vol] 20 U/L Normal 16-63 [facility] Comment on above: Performed By: #### C MP, BNP, CRP ####[facility] Lzgzoolgei6654[address] [place], [place] [address]Dr. Farhat Leal Anion gap [Moles/Vol] 13.0 mmol/L Normal [facility] Comment on above: Performed By: #### C MP, BNP, CRP ####[facility] Jrounnshyc3336[address] [place], [place] [address]Dr. Farhat Leal AST [Catalytic activity/Vol] 33 U/L Normal 15-37 [facility] Comment on above: Performed By: #### C MP, BNP, CRP ####[facility] Kcpouoibob[address] [place], [place] [address]Dr. Farhat Leal Bilirubin [Mass/Vol] 0.7 mg/dL Normal 0.2-1.0 [facility] Comment on above: Performed By: #### C MP, BNP, CRP ####[facility] Ajqhzuymtz7326[address] [place], [place] [address]Dr. Farhat Leal Calcium [Mass/Vol] 8.4 mg/dL Critically low 8.5-10.1 [facility] Comment on above: Performed By: #### C MP, BNP, CRP ####[facility] Kkluldkxlz2586[address] [place], [place] [address]Dr. Farhat Leal Chloride [Moles/Vol] 100 mmol/L Normal 98-107 [facility] Comment on above: Performed By: #### C MP, BNP, CRP ####[facility] Oiismkpfrj659[address] [place], [place] [address]Dr. Farhat Leal CO2 [Moles/Vol] 23.7 mmol/L Normal 21.0-32.0 [facility] Comment on above: Performed By: #### C MP, BNP, CRP ####[facility] Hxiecmbmwa2405 [place] [address]Dr. Farhat Leal Creatinine [Mass/Vol] 1.70 mg/dL Critically high 0.70-1.30 [facility] Comment on above: Performed By: #### C MP, BNP, CRP ####[facility] Cfuxupzldr0499[address] [place], [place] [address]Dr. Farhat Leal EGFR-AF SOMALI 48 mL/min/1.73m2 Critically low >=60 [facility] Comment on above: Performed By: #### C MP, BNP, CRP ####[facility] Siispytesr009[address] [place], [place] [address]Dr. Farhat Leal EGFR-NON AF SOMALI 39 mL/min/1.73m2 Critically low >=60 [facility] Comment on above: Performed By: #### C MP, BNP, CRP ####[facility] Gsphesrpry0695[address] [place], [place] [address]Dr. Farhat Leal Globulin (S) [Mass/Vol] 3.6 g/dL Normal [facility] Comment on above: Performed By: #### C MP, BNP, CRP ####[facility] Qbasttbwsr050[address] [place], [place] [address]Dr. Farhat Leal Glucose [Mass/Vol] 232 mg/dL Critically high 74-106 [facility] Comment on above: Performed By: #### C MP, BNP, CRP ####[facility] Xdsylyrsxj9701 [place] [address]Dr. Farhat Leal Potassium [Moles/Vol] 3.7 mmol/L Normal 3.5-5.1 [facility] Comment on above: Performed By: #### C MP, BNP, CRP ####[facility] Smpodpasza9[address] [place], [place] [address]Dr. Farhat Leal Protein [Mass/Vol] 5.0 g/dL Critically low 6.4-8.2 [facility] Comment on above: Performed By: #### C MP, BNP, CRP ####[facility] Hqnqxwhmrq4881 [place] [address]Dr. Farhat Leal Sodium [Moles/Vol] 133 mmol/L Critically low 136-145 [facility] Comment on above: Performed By: #### C MP, BNP, CRP ####[facility] Jizfwyyfde0849 [place] [address]Dr. Farhat Leal Urea nitrogen [Mass/Vol] 52.0 mg/dL Critically high 7.0-18.0 [facility] Comment on above: Performed By: #### C MP, BNP, CRP ####[facility] Qbstkmtbue0945 [place] [address]Dr. Farhat Leal Urea nitrogen/Creatinine [Mass ratio] 30.6 mg/mg Normal [facility] Comment on above: Performed By: #### C MP, BNP, CRP ####[facility] Xhjwzfjgcf5554 [place] [address]Dr. Farhat Leal PROTIMEon 11-28-2021 INR Coag (PPP) [Relative time] 1.29 {INR} Normal [facility] Comment on above: Performed By: #### P T ####[facility] Yqrvetlyux89[address] [place], [place] [address]Dr. Farhat Leal INR GUIDELINES SEE BELOW Normal [facility] Comment on above: Result Comment: MALINA RED INR: 2.0 - 3.0 CONDITIONS NOT LISTED BELOW 2.5 - 3.5 FOR PROSTHETIC HEART VALVE REPLACEMENT 2.5 - 3.5 RECURRENT THROMBOSIS Performed By: #### P T ####[facility] Adzhdfhnjy44[address] [place] [address]Dr. Farhat Leal PT Coag (PPP) [Time] 13.7 s Critically high 9.0-11.6 [facility] Comment on above: Performed By: #### P T ####[facility] Ymvboubaen[address] [place] [address]Dr. Farhat Leal [facility] SED RATE 77 mm/hr Critically high <=20 [facility] Comment on above: Performed By: #### S EDR ####[facility] Zvceyxjwjz8035 [place] [address]Dr. Farhat Leal XR CHEST 2 Von 11-28-2021 XR CHEST 2 V Normal [facility] BNPon 11-27-2021 Natriuretic peptide B (Bld) [Mass/Vol] 64083.0 pg/mL Critically high <=1,800.0 [facility] Comment on above: Performed By: #### B ROUTE DELIVERY MANAGER, CMP, CRP ####[facility] Mgeizrxfij8197[address] [place], [place] [address]Dr. Farhat Elvis CBC AUTO DIFFon 11-27-2021 BASO # 0.0 103/ul Normal 0.0-0.1 [facility] Comment on above: Performed By: #### C BC ####[facility] Tyaqxhcreb[address] [place], [place] [address]Dr. Madelynlorri Leal Basophils/100 WBC (Bld) 0.2 % Normal 0.2-2.0 [facility] Comment on above: Performed By: #### C BC ####[facility] Cajhfxlqgk[address] [place], [place] [address]Dr. Farhat Leal EO # 0.2 103/ul Normal 0.0-0.7 [facility] Comment on above: Performed By: #### C BC ####[facility] Lccrdxptnz64[address] [place], [place] [address]Dr. Farhat Elvis Eosinophils/100 WBC (Bld) 1.9 % Normal 0.9-7.0 [facility] Comment on above: Performed By: #### C BC ####[facility] Zvomsqbsua527[address] [place], [place] [address]Dr. Farhat Leal Erythrocyte distribution width (RBC) [Ratio] 13.9 % Normal 11.0-15.0 [facility] Comment on above: Performed By: #### C BC ####[facility] Undukdqtvf[address] [place], [place] [address]Dr. Madelynlorri Elvis Hematocrit (Bld) [Volume fraction] 28.7 % Critically low 42.0-54.0 [facility] Comment on above: Performed By: #### C BC ####[facility] Bfgxmsvtle7981 [place] [address]Dr. Farhat Leal Hemoglobin (Bld) [Mass/Vol] 9.3 g/dL Critically low 14.0-18.0 [facility] Comment on above: Performed By: #### C BC ####[facility] Pzcwqfvfru7172 [place] [address]Dr. Farhat Leal IG # 0.14 10e3/ul Critically high 0.00-0.03 [facility] Comment on above: Performed By: #### C BC ####[facility] Dqevxifmbr5906 [place] [address]Dr. Farhat Leal IG % 1.2 % Critically high 0.0-0.5 [facility] Comment on above: Performed By: #### C BC ####[facility] Ensfszvmkg[address] [place], [place] [address]Dr. Farhat Leal LYMPH # 1.1 103/ul Critically low 1.2-3.8 [facility] Comment on above: Performed By: #### C BC ####[facility] Jogflpsdnt3436 [place] [address]Dr. Farhat Leal Lymphocytes/100 WBC (Bld) 9.4 % Critically low 20.5-60.0 [facility] Comment on above: Performed By: #### C BC ####[facility] Zjvltfcomf7326 [place] [address]Dr. Farhat Leal MANUAL DIFF REQ NO Normal [facility] [place] [facility] Comment on above: Performed By: #### C BC ####[facility] Tnhmvhrwia[address] [place], [place] [address]Dr. Farhat Leal MCH (RBC) [Entitic mass] 29.7 pg Normal 25.9-34.0 [facility] Comment on above: Performed By: #### C BC ####[facility] Naxovydzvu7516 [place] [address]Dr. Fahrat Leal MCHC (RBC) [Mass/Vol] 32.4 g/dL Normal 29.9-35.2 [facility] Comment on above: Performed By: #### C BC ####[facility] Jefpjcqcdp2292 [place] [address]Dr. Farhat Leal MCV (RBC) [Entitic vol] 91.7 fL Normal 80.0-94.0 [facility] Comment on above: Performed By: #### C BC ####[facility] Bprldljzug4052 [place] [address]Dr. Farhat Leal MONO # 1.1 103/ul Critically high 0.3-0.8 [facility] Comment on above: Performed By: #### C BC ####[facility] Puhqxgeaho2270 [place] [address]Dr. Farhat Leal Monocytes/100 WBC (Bld) 9.7 % Normal 1.7-12.0 [facility] Comment on above: Performed By: #### C BC ####[facility] Yqfgaasmsb28[address] [place], [place] [address]Dr. Farhat Leal NEUT # 9.2 103/ul Critically high 1.4-6.5 [facility] Comment on above: Performed By: #### C BC ####[facility] Ytpdutserz504[address] [place], [place] [address]Dr. Farhat Leal Neutrophils/100 WBC (Bld) 77.6 % Critically high 43.0-75.0 [facility] Comment on above: Performed By: #### C BC ####[facility] Fipvqbldmc[address] [place], [place] [address]Dr. Farhat Leal Platelet mean volume (Bld) [Entitic vol] 9.5 fL Normal 9.5-13.5 [facility] Comment on above: Performed By: #### C BC ####[facility] Kysgeiruit8372 [place] [address]Dr. Farhat Leal PLT 375 103/ul Normal 150-450 [facility] Comment on above: Performed By: #### C BC ####[facility] Bjnzagkgrf9092 [place] [address]Dr. Farhat Leal RBC 3.13 106/ul Critically low 4.70-6.10 [facility] Comment on above: Performed By: #### C BC ####[facility] Qrpkixevpa9459 [place] [address]Dr. Farhat Leal WBC 11.8 103/ul Critically high 4.0-11.0 [facility] Comment on above: Performed By: #### C BC ####[facility] Nqdmofkyzh0429 [place] [address]Dr. Farhat Leal CRPon 11-27-2021 CRP 24.5 mg/dL Critically high <=1.0 [facility] Comment on above: Performed By: #### B ROUTE DELIVERY MANAGER, CMP, CRP ####[facility] Eirtuhkukj8241 [place] [address]Dr. Madelynlorri Leal CULTURE OTHERon 11-27-2021 CULTURE OTHER Normal [facility] Comment on above: Performed By: #### O THCX ####[facility] Edrpxiydre4543 [place] [address]Dr. Madelynlorri Leal CULTURE OTHER Normal [facility] Comment on above: Performed By: #### O THCX ####[facility] Qagkymhubp0225[address] [place], [place] [address]Dr. Farhat Leal CULTURE WOUNDon 11-27-2021 CULTURE WOUND Normal [facility] Comment on above: Performed By: #### W OUNDCX ####[facility] Wevklwgyzl1187 [place] [phone]. Farhat Leal POINT OF CARE GLUCOSEon 11-15 Glucose [Mass/Vol] 147 mg/dL Critically high 74-106 [facility] Comment on above: Performed By: #### P OCGLUC ####[facility] Zmcpnyiyso6498 [place] [phone]. Farhat Leal PROF 14(COMP METB)on 022 Albumin [Mass/Vol] 1.4 g/dL Critically low 3.4-5.0 [facility] Comment on above: Performed By: #### B ROUTE DELIVERY MANAGER, CMP, CRP ####[facility] Kizpibwiaa1638 [place] [phone]. Farhat Leal Albumin/Globulin [Mass ratio] 0.4 {ratio} [facility] Comment on above: Performed By: #### B ROUTE DELIVERY MANAGER, CMP, CRP ####[facility] Luakcfehyp2061 [place] [address]Dr. Farhat Leal ALP [Catalytic activity/Vol] 82 U/L Normal 46-116 [facility] Comment on above: Performed By: #### B ROUTE DELIVERY MANAGER, CMP, CRP ####[facility] Szacbttqef3922 [place] [address]Dr. Farhat Elvis ALT [Catalytic activity/Vol] 22 U/L Normal 16-63 [facility] Comment on above: Performed By: #### B ROUTE DELIVERY MANAGER, CMP, CRP ####[facility] Nllobnzwzb20[address] [place], [place] [address]Dr. Farhat Leal Anion gap [Moles/Vol] 14.2 mmol/L Normal [facility] Comment on above: Performed By: #### B ROUTE DELIVERY MANAGER, CMP, CRP ####[facility] Pmllkyoyuk[address] [place], [place] [address]Dr. Farhat Leal AST [Catalytic activity/Vol] 35 U/L Normal 15-37 [facility] Comment on above: Performed By: #### B ROUTE DELIVERY MANAGER, CMP, CRP ####[facility] Ahfgkroltc75[address] [place], [place] [address]Dr. Farhat Leal Bilirubin [Mass/Vol] 0.7 mg/dL Normal 0.2-1.0 [facility] Comment on above: Performed By: #### B ROUTE DELIVERY MANAGER, CMP, CRP ####[facility] Qffshiitge1425[address] [place], [place] [address]Dr. Farhat Leal Calcium [Mass/Vol] 8.2 mg/dL Critically low 8.5-10.1 [facility] Comment on above: Performed By: #### B ROUTE DELIVERY MANAGER, CMP, CRP ####[facility] Wjrcexcggf99[address] [place], [place] [address]Dr. Farhat Leal Chloride [Moles/Vol] 99 mmol/L Normal 98-107 [facility] Comment on above: Performed By: #### B ROUTE DELIVERY MANAGER, CMP, CRP ####[facility] Vnpssqzszd8[address] [place], [place] [address]Dr. Farhat Leal CO2 [Moles/Vol] 22.6 mmol/L Normal 21.0-32.0 [facility] Comment on above: Performed By: #### B ROUTE DELIVERY MANAGER, CMP, CRP ####[facility] Hemrzpujpy0965 [place] [address]Dr. Farhat Leal Creatinine [Mass/Vol] 1.73 mg/dL Critically high 0.70-1.30 [facility] Comment on above: Performed By: #### B ROUTE DELIVERY MANAGER, CMP, CRP ####[facility] Ubshrsixek5894 [place] [address]Dr. Farhat Elvis EGFR-AF SOMALI 47 mL/min/1.73m2 Critically low >=60 [facility] Comment on above: Performed By: #### B ROUTE DELIVERY MANAGER, CMP, CRP ####[facility] Iohwcakxhf8674[address] [place], [place] [address]Dr. Farhat Leal EGFR-NON AF SOMALI 38 mL/min/1.73m2 Critically low >=60 [facility] Comment on above: Performed By: #### B ROUTE DELIVERY MANAGER, CMP, CRP ####[facility] Meuilzwjds9[address] [place], [place] [address]Dr. Madelynlorri Leal Globulin (S) [Mass/Vol] 3.7 g/dL Normal [facility] Comment on above: Performed By: #### B ROUTE DELIVERY MANAGER, CMP, CRP ####[facility] Ujouqdxxeo7762 [place] [address]Dr. Madelynlorri Leal Glucose [Mass/Vol] 220 mg/dL Critically high 74-106 [facility] Comment on above: Performed By: #### B ROUTE DELIVERY MANAGER, CMP, CRP ####[facility] Fvgmsyyzwf2659 [place] [address]Dr. Madelynlorri Leal Potassium [Moles/Vol] 3.8 mmol/L Normal 3.5-5.1 [facility] Comment on above: Performed By: #### B ROUTE DELIVERY MANAGER, CMP, CRP ####[facility] Yykoubdijx1666[address] [place], [place] [address]Dr. Farhat Leal Protein [Mass/Vol] 5.1 g/dL Critically low 6.4-8.2 [facility] Comment on above: Performed By: #### B ROUTE DELIVERY MANAGER, CMP, CRP ####[facility] Ysmxgbonjc1757 [place] [address]Dr. Farhat Leal Sodium [Moles/Vol] 132 mmol/L Critically low 136-145 [facility] Comment on above: Performed By: #### B ROUTE DELIVERY MANAGER, CMP, CRP ####[facility] Eaxlqwpxec3177 [place] [address]Dr. Farhat Leal Urea nitrogen [Mass/Vol] 49.0 mg/dL Critically high 7.0-18.0 [facility] Comment on above: Performed By: #### B ROUTE DELIVERY MANAGER, CMP, CRP ####[facility] Kgigryltfy8411 [place] [address]Dr. Farhat Leal Urea nitrogen/Creatinine [Mass ratio] 28.3 mg/mg Normal [facility] Comment on above: Performed By: #### B ROUTE DELIVERY MANAGER, CMP, CRP ####[facility] Nyuuowurvn8[address] [place], [place] [address]Dr. Farhat Leal PROTIMEon 11-27-2021 INR Coag (PPP) [Relative time] 1.25 {INR} Normal [facility] Comment on above: Performed By: #### P T ####[facility] Dmofjiyrxq4[address] [place], [place] [address]Dr. Farhat Leal INR GUIDELINES SEE BELOW Normal [facility] Comment on above: Result Comment: MALINA RED INR: 2.0 - 3.0 CONDITIONS NOT LISTED BELOW 2.5 - 3.5 FOR PROSTHETIC HEART VALVE REPLACEMENT 2.5 - 3.5 RECURRENT THROMBOSIS Performed By: #### P T ####[facility] Eskwliijvs5174 [place] [address]Dr. Farhat Leal PT Coag (PPP) [Time] 13.3 s Critically high 9.0-11.6 [facility] Comment on above: Performed By: #### P T ####[facility] Sjlwpliasd8069 [place] [address]Dr. Farhat Leal SED RATE WESTERGREN 2021 SED RATE 60 mm/hr Critically high <=20 [facility] Comment on above: Performed By: #### S EDR ####[facility] Dimbmzmxza7434 [place] [address]Dr. Farhat Leal VANCOMYCIN TROUGHon 11-28-19 VANCOMYCIN TROUGH 21.2 ug/ml Critically high 5.0-20.0 [facility] Comment on above: Performed By: #### V ANCT ####[facility] Zftrkumskh86[address] [place], [place] [address]Dr. Farhat Leal XR CHEST 1 Von 11-27-2021 XR CHEST 1 V Normal [facility] BNPon 11-26-2021 Natriuretic peptide B (Bld) [Mass/Vol] 51586.0 pg/mL Critically high <=1,800.0 [facility] Comment on above: Performed By: #### B ROUTE DELIVERY MANAGER, CRP, CMP ####[facility] Myzgdnlrfr75[address] [place], [place] [address]Dr. Farhat Elvis CBC AUTO DIFFon 11-26-2021 BASO # 0.0 103/ul Normal 0.0-0.1 [facility] Comment on above: Performed By: #### C BC ####[facility] Yhtkbnytiv8[address] [place], [place] [address]Dr. Madelynlorri Leal Basophils/100 WBC (Bld) 0.2 % Normal 0.2-2.0 [facility] Comment on above: Performed By: #### C BC ####[facility] Nxieynxldo27[address] [place], [place] [address]Dr. Farhat Leal EO # 0.0 103/ul Normal 0.0-0.7 [facility] Comment on above: Performed By: #### C BC ####[facility] Nsefxlsgut39[address] [place], [place] [address]Dr. Farhat Leal Eosinophils/100 WBC (Bld) 0.3 % Critically low 0.9-7.0 [facility] Comment on above: Performed By: #### C BC ####[facility] Iuwoauarxp63[address] [place], [place] [address]Dr. Farhat Leal Erythrocyte distribution width (RBC) [Ratio] 13.9 % Normal 11.0-15.0 [facility] Comment on above: Performed By: #### C BC ####[facility] Qexvdahezw7474 [place] [address]Dr. Farhat Leal Hematocrit (Bld) [Volume fraction] 27.3 % Critically low 42.0-54.0 [facility] Comment on above: Performed By: #### C BC ####[facility] Btsyygujyo5264 [place] [address]Dr. Farhat Leal Hemoglobin (Bld) [Mass/Vol] 8.8 g/dL Critically low 14.0-18.0 [facility] Comment on above: Performed By: #### C BC ####[facility] Aghfvqmdri0747 [place] [address]Dr. Farhat Leal IG # 0.17 10e3/ul Critically high 0.00-0.03 [facility] Comment on above: Performed By: #### C BC ####[facility] Ohqmzgqxyg8033 [place] [address]Dr. Farhat Leal IG % 1.2 % Critically high 0.0-0.5 [facility] Comment on above: Performed By: #### C BC ####[facility] Hvklnaltkk2077 [place] [address]Dr. Farhat Elvis LYMPH # 0.7 103/ul Critically low 1.2-3.8 [facility] Comment on above: Performed By: #### C BC ####[facility] Ixnkujotsh1499 [place] [address]DrSkylar Farhat Elvis Lymphocytes/100 WBC (Bld) 4.8 % Critically low 20.5-60.0 [facility] Comment on above: Performed By: #### C BC ####[facility] Bumnplktkv8701 [place] [address]Dr. Madelynlorri Leal MANUAL DIFF REQ NO Normal [facility] Comment on above: Performed By: #### C BC ####[facility] G[address]qnystle[address] [place] [address]DrSkylar Farhat Elvis MCH (RBC) [Entitic mass] 29.9 pg Normal 25.9-34.0 [facility] Comment on above: Performed By: #### C BC ####[facility] Bzbpakzdqi6131 [place] [phone]. Farhat Elvis MCHC (RBC) [Mass/Vol] 32.2 g/dL Normal 29.9-35.2 [facility] Comment on above: Performed By: #### C BC ####[facility] Ksfsxdjkmo9594 [place] [phone] Leal MCV (RBC) [Entitic vol] 92.9 fL Normal 80.0-94.0 [facility] Comment on above: Performed By: #### C BC ####[facility] [address] [place] [id number] Leal MONO # 1.3 103/ul Critically high 0.3-0.8 [facility] Comment on above: Performed By: #### C BC ####[facility] Rsxrnpfzio23[address] [place] [address]Dr. Farhat Leal Monocytes/100 WBC (Bld) 9.6 % Normal 1.7-12.0 [facility] Comment on above: Performed By: #### C BC ####[facility] Dqjelndmcg[address] [place], [place] [id number]. Farhat Leal NEUT # 11.4 103/ul Critically high 1.4-6.[address] [facility] Comment on above: Performed By: #### C BC ####[facility] Qqpluxzhlw9940 [place] [id number] Leal Neutrophils/100 WBC (Bld) 83.9 % Critically high 43.0-75.0 [facility] Comment on above: Performed By: #### C BC ####[facility] Shvalztzhl[address] [place] [id number] Leal Platelet mean volume (Bld) [Entitic vol] 9.6 fL Normal 9.5-13.5 [facility] Comment on above: Performed By: #### C BC ####[facility] Nmdxqolkwk11[address] [place] [id number] Leal PLT 395 103/ul Normal 150-450 [facility] Comment on above: Performed By: #### C BC ####[facility] Sdeaiejgbi[address] [place] [address]Dr. Farhat Leal RBC 2.94 106/ul Critically low 4.70-6.10 [facility] Comment on above: Performed By: #### C BC ####[facility] Tjnfxckyoq[address] [place] [address]Dr. Farhat Leal WBC 13.6 103/ul Critically high 4.0-11.0 [facility] Comment on above: Performed By: #### C BC ####[facility] Ikmtuobbyv7[address] [place] [address]Dr. Farhat Leal CRPon 11-26-2021 CRP [Mass/Vol] mg/L Critically high <=1.0 [facility] Comment on above: Performed By: #### B ROUTE DELIVERY MANAGER, CRP, CMP ####[facility] Eoybpdzqhs8[address] [place] [address]Dr. Farhat Leal PROF 14(COMP METB)on 022 Albumin [Mass/Vol] 1.5 g/dL Critically low 3.4-5.0 [facility] Comment on above: Performed By: #### B ROUTE DELIVERY MANAGER, CRP, CMP ####[facility] Ascnxpshdz6[address] [place] [address]Dr. Farhat Leal Albumin/Globulin [Mass ratio] 0.4 {ratio} Normal [facility] Comment on above: Performed By: #### B ROUTE DELIVERY MANAGER, CRP, CMP ####[facility] Bkmlicfnvm9034 [place] [address]Dr. Farhat Leal ALP [Catalytic activity/Vol] 88 U/L Normal 46-116 [facility] Comment on above: Performed By: #### B ROUTE DELIVERY MANAGER, CRP, CMP ####[facility] Oajkcmfkep69[address] [place] [address]Dr. Farhat Leal ALT [Catalytic activity/Vol] 29 U/L Normal 16-63 [facility] Comment on above: Performed By: #### B ROUTE DELIVERY MANAGER, CRP, CMP ####[facility] Zdzlspplay7[address] [place] [address]Dr. Farhat Leal Anion gap [Moles/Vol] 13.3 mmol/L Normal [facility] Comment on above: Performed By: #### B ROUTE DELIVERY MANAGER, CRP, CMP ####[facility] Humzwytcqo2[address] [place] [address]Dr. Farhat Leal AST [Catalytic activity/Vol] 32 U/L Normal 15-37 [facility] Comment on above: Performed By: #### B ROUTE DELIVERY MANAGER, CRP, CMP ####[facility] Btkatedxeq1939 [place] [address]Dr. Farhat Leal Bilirubin [Mass/Vol] 0.6 mg/dL Normal 0.2-1.0 [facility] Comment on above: Performed By: #### B ROUTE DELIVERY MANAGER, CRP, CMP ####[facility] Astginruku[address] [place], [place] [address]Dr. Farhat Leal Calcium [Mass/Vol] 8.0 mg/dL Critically low 8.5-10.1 [facility] Comment on above: Performed By: #### B ROUTE DELIVERY MANAGER, CRP, CMP ####[facility] Hfpcqkpnfr88[address] [place], [place] [address]Dr. Farhat Leal Chloride [Moles/Vol] 98 mmol/L Normal 98-107 [facility] Comment on above: Performed By: #### B ROUTE DELIVERY MANAGER, CRP, CMP ####[facility] Vxujdfbyvt6[address] [place], [place] [address]Dr. Farhat Leal CO2 [Moles/Vol] 23.7 mmol/L Normal 21.0-32.0 [facility] Comment on above: Performed By: #### B ROUTE DELIVERY MANAGER, CRP, CMP ####[facility] Iddgjeemwv[address] [place], [place] [address]Dr. Farhat Leal Creatinine [Mass/Vol] 2.08 mg/dL Critically high 0.70-1.30 [facility] Comment on above: Performed By: #### B ROUTE DELIVERY MANAGER, CRP, CMP ####[facility] Pgartyymjt97[address] [place], [place] [address]Dr. Farhat Leal EGFR-AF SOMALI 38 mL/min/1.73m2 Critically low >=60 [facility] Comment on above: Performed By: #### B ROUTE DELIVERY MANAGER, CRP, CMP ####[facility] Rgfepcvcja4[address] [place] [address]Dr. Farhat Leal EGFR-NON AF SOMALI 31 mL/min/1.73m2 Critically low >=60 [facility] Comment on above: Performed By: #### B ROUTE DELIVERY MANAGER, CRP, CMP ####[facility] Cvffsimzxo7[address] [place] [address]Dr. Farhat Leal Globulin (S) [Mass/Vol] 3.7 g/dL Normal [facility] Comment on above: Performed By: #### B ROUTE DELIVERY MANAGER, CRP, CMP ####[facility] Wbfeogwyab4[address] [place] [address]Dr. Farhat Leal Glucose [Mass/Vol] 315 mg/dL Critically high 74-106 [facility] Comment on above: Performed By: #### B ROUTE DELIVERY MANAGER, CRP, CMP ####[facility] Uhnjflqesf[address] [place], [place] [address]Dr. Madelynlorir Leal Potassium [Moles/Vol] 4.0 mmol/L Normal 3.5-5.1 [facility] Comment on above: Performed By: #### B ROUTE DELIVERY MANAGER, CRP, CMP ####[facility] Hykkyzolqp[address] [place], [place] [address]Dr. Farhat Leal Protein [Mass/Vol] 5.2 g/dL Critically low 6.4-8.2 [facility] Comment on above: Performed By: #### B ROUTE DELIVERY MANAGER, CRP, CMP ####[facility] Hdugyekpbf46[address] [place], [place] [address]Dr. Farhat Leal Sodium [Moles/Vol] 131 mmol/L Critically low 136-145 [facility] Comment on above: Performed By: #### B ROUTE DELIVERY MANAGER, CRP, CMP ####[facility] Nizapumcqa8[address] [place], [place] [address]Dr. Farhat Leal Urea nitrogen [Mass/Vol] 50.0 mg/dL Critically high 7.0-18.0 [facility] Comment on above: Performed By: #### B ROUTE DELIVERY MANAGER, CRP, CMP ####[facility] Xpaztiljqa[address] [place], [place] [address]Dr. Farhat Leal Urea nitrogen/Creatinine [Mass ratio] 24.0 mg/mg Normal [facility] Comment on above: Performed By: #### B ROUTE DELIVERY MANAGER, CRP, CMP ####[facility] Jppavyctup2[address] [place] [address]Dr. Farhat Leal PROTIMEon 11-26-2021 INR Coag (PPP) [Relative time] 1.31 {INR} Normal [facility] Comment on above: Performed By: #### P T ####[facility] Bmjbcezdvb[address] [place], [place] [address]Dr. Farhat Leal INR GUIDELINES SEE BELOW Normal [facility] Comment on above: Result Comment: MALINA RED INR: 2.0 - 3.0 CONDITIONS NOT LISTED BELOW 2.5 - 3.5 FOR PROSTHETIC HEART VALVE REPLACEMENT 2.5 - 3.5 RECURRENT THROMBOSIS Performed By: #### P T ####[facility] Il[address] [place] [address]. Farhat Leal PT Coag (PPP) [Time] 13.9 s Critically high 9.0-11.6 [facility] Comment on above: Performed By: #### P T ####[facility] Ifzmytqlfi[address] [place] [address]. Farhat Leal SED RATE VERNONERGRENon 2021 SED RATE 87 mm/hr Critically high <=20 [facility] Comment on above: Performed By: #### S EDR ####[facility] Vxiasigepv[address] [place], [place] [address]Dr. Farhat Leal BNPon 11-25-2021 Natriuretic peptide B (Bld) [Mass/Vol] 23486.0 pg/mL Critically high <=1,800.0 [facility] Comment on above: Performed By: #### C MP, BNP, CRP ####[facility] Sert[address]tr[address] [place] [address]. Farhat Leal CBC AUTO DIFFon 11-25-2021 BASO # 0.0 103/ul Normal 0.0-0.1 [facility] Comment on above: Performed By: #### C BC ####[facility] [address]lwktqah5[address] [place] [address]Dr. Farhat Leal Basophils/100 WBC (Bld) 0.4 % Normal 0.2-2.0 [facility] Comment on above: Performed By: #### C BC ####[facility] Kqvkugunbl26[address] [place] [address]Dr. Farhat Leal EO # 0.1 103/ul Normal 0.0-0.7 [facility] Comment on above: Performed By: #### C BC ####[facility] Dodzjwllak33[address] [place] [address]Dr. Farhat Leal Eosinophils/100 WBC (Bld) 1.2 % Normal 0.9-7.0 [facility] Comment on above: Performed By: #### C BC ####[facility] Ttjarbcgan0610 [place] [address]Dr. Farhat Leal Erythrocyte distribution width (RBC) [Ratio] 13.7 % Normal 11.0-15.0 [facility] Comment on above: Performed By: #### C BC ####[facility] Vwruwuhjiy4144 [place] [address]Dr. Farhat Leal Hematocrit (Bld) [Volume fraction] 29.6 % Critically low 42.0-54.0 [facility] Comment on above: Performed By: #### C BC ####[facility] Sqqmxfwgas8241 [place] [address]Dr. Farhat Leal Hemoglobin (Bld) [Mass/Vol] 9.3 g/dL Critically low 14.0-18.0 [facility] Comment on above: Performed By: #### C BC ####[facility] Itvbfcznih3088 [place] [address]Dr. Farhat Leal IG # 0.15 10e3/ul Critically high 0.00-0.03 [facility] Comment on above: Performed By: #### C BC ####[facility] Omjttyerqs7396 [place] [address]Dr. Farhat Leal IG % 1.4 % Critically high 0.0-0.5 [facility] Comment on above: Performed By: #### C BC ####[facility] Rmoxgggowe3016 [place], [place] [address]Hf. Farhat Leal LYMPH # 0.8 103/ul Critically low 1.2-3.8 [facility] Comment on above: Performed By: #### C BC ####[facility] [address]wwbghzje[address] [place], [place] [address]Sf. Farhat Leal Lymphocytes/100 WBC (Bld) 7.3 % Critically low 20.5-60.0 [facility] Comment on above: Performed By: #### C BC ####[facility] Ksszvyzumy9[address] [place] [address]Dr. Madelynlorri Leal MANUAL DIFF REQ NO Normal [facility] Comment on above: Performed By: #### C BC ####[facility] Nzddamokfc5217 [place] [address]Dr. Farhat Elvis MCH (RBC) [Entitic mass] 29.3 pg Normal 25.9-34.0 [facility] Comment on above: Performed By: #### C BC ####[facility] Phzrnyrznw8136 [place] [address]Dr. Farhat Leal MCHC (RBC) [Mass/Vol] 31.4 g/dL Normal 29.9-35.2 [facility] Comment on above: Performed By: #### C BC ####[facility] Hfnjwrvdxs1716 [place] [address]Dr. Madelynlorri Elvis MCV (RBC) [Entitic vol] 93.4 fL Normal 80.0-94.0 [facility] Comment on above: Performed By: #### C BC ####[facility] Mqqwlqxmmc1430 [place] [address]Dr. Farhat Leal MONO # 1.3 103/ul Critically high 0.3-0.8 [facility] Comment on above: Performed By: #### C BC ####[facility] Avrsqwyuqa9641 [place] [address]Dr. Farhat Elvis Monocytes/100 WBC (Bld) 12.3 % Critically high 1.7-12.0 [facility] Comment on above: Performed By: #### C BC ####[facility] Jlfckdjaav0988 [place] [address]Dr. Farhat Leal NEUT # 8.4 103/ul Critically high 1.4-6.5 [facility] Comment on above: Performed By: #### C BC ####[facility] Hlvlwggvfq1611 [place] [address]Dr. Farhat Leal Neutrophils/100 WBC (Bld) 77.4 % Critically high 43.0-75.0 [facility] Comment on above: Performed By: #### C BC ####[facility] Shiuqjyimc[address] [place] [address]Dr. Farhat Leal Platelet mean volume (Bld) [Entitic vol] 9.8 fL Normal 9.5-13.5 [facility] Comment on above: Performed By: #### C BC ####[facility] Qtrdmuqztt6883 [place] [address]Dr. Farhat Leal PLT 390 103/ul Normal 150-450 [facility] Comment on above: Performed By: #### C BC ####[facility] Iitdjqjtnp8804 [place] [address]Dr. Farhat Leal RBC 3.17 106/ul Critically low 4.70-6.10 [facility] Comment on above: Performed By: #### C BC ####[facility] Agsufilwgg7938 [place] [address]Dr. Farhat Leal WBC 10.9 103/ul Normal 4.0-11.0 [facility] Comment on above: Performed By: #### C BC ####[facility] Stmghdznwz9770 [place] [address]Dr. Farhat Leal CRPon 11-25-2021 CRP 27.2 mg/dL Critically high <=1.0 [facility] Comment on above: Performed By: #### C MP, BNP, CRP ####[facility] Pxyktysztv0153 [place] [address]Dr. Farhat Leal PROF 14(COMP METB)on 022 Albumin [Mass/Vol] 1.5 g/dL Critically low 3.4-5.0 [facility] Comment on above: Performed By: #### C MP, BNP, CRP ####[facility] Nxxokxpttj5753 [place] [address]Dr. Farhat Leal Albumin/Globulin [Mass ratio] 0.4 {ratio} Normal [facility] Comment on above: Performed By: #### C MP, BNP, CRP ####[facility] Iyxmszlaoi5688 [place] [address]Dr. Farhat Leal ALP [Catalytic activity/Vol] 86 U/L Normal 46-116 [facility] Comment on above: Performed By: #### C MP, BNP, CRP ####[facility] Nnkhgyvokk[address] [place], [place] [address]Dr. Farhat Leal ALT [Catalytic activity/Vol] 34 U/L Normal 16-63 [facility] Comment on above: Performed By: #### C MP, BNP, CRP ####[facility] Sdsbkjtijy36[address] [place], [place] [address]Dr. Farhat Leal Anion gap [Moles/Vol] 17.8 mmol/L Normal [facility] Comment on above: Performed By: #### C MP, BNP, CRP ####[facility] Mfeozijnst6[address] [place], [place] [address]Dr. Farhat Leal AST [Catalytic activity/Vol] 48 U/L Critically high 15-37 [facility] Comment on above: Performed By: #### C MP, BNP, CRP ####[facility] Jwrqlgcxxt724[address] [place], [place] [address]Dr. Farhat Leal Bilirubin [Mass/Vol] 0.8 mg/dL Normal 0.2-1.0 [facility] Comment on above: Performed By: #### C MP, BNP, CRP ####[facility] Xwkdsgrlll20[address] [place], [place] [address]Dr. Farhat Leal Calcium [Mass/Vol] 8.3 mg/dL Critically low 8.5-10.1 [facility] Comment on above: Performed By: #### C MP, BNP, CRP ####[facility] Aviohrfcxh07[address] [place], [place] [address]Dr. Farhat Leal Chloride [Moles/Vol] 97 mmol/L Critically low 98-107 [facility] Comment on above: Performed By: #### C MP, BNP, CRP ####[facility] Czuozzklat9686 [place] [address]Dr. Farhat Leal CO2 [Moles/Vol] 23.0 mmol/L Normal 21.0-32.[address] [facility] Comment on above: Performed By: #### C MP, BNP, CRP ####[facility] Ptvscnpbjy2993 [place] [address]Dr. Farhat Leal Creatinine [Mass/Vol] 1.68 mg/dL Critically high 0.70-1.30 [facility] Comment on above: Performed By: #### C MP, BNP, CRP ####[facility] Gzzytgffou27[address] [place], [place] [address]Dr. Madelynlorri Elvis EGFR-AF SOMALI 48 mL/min/1.73m2 Critically low >=60 [facility] Comment on above: Performed By: #### C MP, BNP, CRP ####[facility] Ofaehdvazz[address] [place], [place] [address]Dr. Farhat Leal EGFR-NON AF SOMALI 40 mL/min/1.73m2 Critically low >=60 [facility] Comment on above: Performed By: #### C MP, BNP, CRP ####[facility] Ykezsbywlm86[address] [place] [address]Dr. Madelynlorri Leal Globulin (S) [Mass/Vol] 3.9 g/dL Normal [facility] Comment on above: Performed By: #### C MP, BNP, CRP ####[facility] Cqtosrpaft1661 [place] [address]Dr. Madelynlorri Leal Glucose [Mass/Vol] 282 mg/dL Critically high 74-106 [facility] Comment on above: Performed By: #### C MP, BNP, CRP ####[facility] Nbigsknyxm1938 [place] [address]Dr. Farhat Leal Potassium [Moles/Vol] 4.8 mmol/L Normal 3.5-5.1 [facility] Comment on above: Performed By: #### C MP, BNP, CRP ####[facility] Abmdqcoyzj9857 [place] [address]Dr. Farhat Leal Protein [Mass/Vol] 5.4 g/dL Critically low 6.4-8.2 [facility] Comment on above: Performed By: #### C MP, BNP, CRP ####[facility] Ygdiqouork7033 [place] [address]Dr. Farhat Leal Sodium [Moles/Vol] 133 mmol/L Critically low 136-145 [facility] Comment on above: Performed By: #### C MP, BNP, CRP ####[facility] Edufyqyxcx01[address] [place], [place] [address]Dr. Farhat Leal Urea nitrogen [Mass/Vol] 40.0 mg/dL Critically high 7.0-18.0 [facility] Comment on above: Performed By: #### C MP, BNP, CRP ####[facility] Xpxjemihan9[address] [place], [place] [address]Dr. Farhat Leal Urea nitrogen/Creatinine [Mass ratio] 23.8 mg/mg Normal [facility] Comment on above: Performed By: #### C MP, BNP, CRP ####[facility] Krytftztup[address] [place], [place] [address]Dr. Farhat Leal PROTIMEon 11-25-2021 INR Coag (PPP) [Relative time] 1.48 {INR} Normal [facility] Comment on above: Performed By: #### P T ####[facility] Wkkxqjmxgi[address] [place], [place] [address]Dr. Farhat Leal INR GUIDELINES SEE BELOW Normal [facility] Comment on above: Result Comment: MALINA RED INR: 2.0 - 3.0 CONDITIONS NOT LISTED BELOW 2.5 - 3.5 FOR PROSTHETIC HEART VALVE REPLACEMENT 2.5 - 3.5 RECURRENT THROMBOSIS Performed By: #### P T ####[facility] Teybtdvalw046[address] [place], [place] [address]Dr. Farhat Leal PT Coag (PPP) [Time] 15.6 s Critically high 9.0-11.6 [facility] Comment on above: Performed By: #### P T ####[facility] Segqncywok3[address] [place], [place] [address]Dr. Farhat Leal SED RATE WESTERGRENon 2021 SED RATE 76 mm/hr Critically high <=20 [facility] Comment on above: Performed By: #### S EDR ####[facility] Vuhfxncgbt[address] [place], [place] [address]Dr. Farhat Leal BNPon 11-24-2021 Natriuretic peptide B (Bld) [Mass/Vol] 04945.0 pg/mL Critically high <=1,800.0 [facility] Comment on above: Performed By: #### B ROUTE DELIVERY MANAGER, CMP, CRP ####[facility] Zoanonjztu40[address] [place], [place] [address]Dr. Farhat Leal CBC AUTO DIFFon 11-24-2021 BASO # 0.0 103/ul Normal 0.0-0.1 [facility] Comment on above: Performed By: #### C BC ####[facility] Qsesamefuv3836[address] [place], [place] [address]Dr. Farhat Leal Basophils/100 WBC (Bld) 0.3 % Normal 0.2-2.0 [facility] Comment on above: Performed By: #### C BC ####[facility] Vadsblhxbr[address] [place], [place] [address]Dr. Farhat Leal EO # 0.2 103/ul Normal 0.0-0.7 [facility] Comment on above: Performed By: #### C BC ####[facility] Hovqqruqrb[address] [place], [place] [address]Dr. Farhat Leal Eosinophils/100 WBC (Bld) 1.2 % Normal 0.9-7.0 [facility] Comment on above: Performed By: #### C BC ####[facility] Mhfzcfsknw5[address] [place], [place] [address]Dr. Farhat Leal Erythrocyte distribution width (RBC) [Ratio] 13.5 % Normal 11.0-15.0 [facility] Comment on above: Performed By: #### C BC ####[facility] Hdjusnvpsz[address] [place], [place] [address]Dr. Farhat Leal Hematocrit (Bld) [Volume fraction] 31.1 % Critically low 42.0-54.0 [facility] Comment on above: Performed By: #### C BC ####[facility] Kxdwsqxcab9037 [place] [address]Dr. Farhat Leal Hemoglobin (Bld) [Mass/Vol] 10.0 g/dL Critically low 14.0-18.0 [facility] Comment on above: Performed By: #### C BC ####[facility] Mffepqespe8498 [place] [address]Dr. Madelynlorri Elvis IG # 0.13 10e3/ul Critically high 0.00-0.03 [facility] Comment on above: Performed By: #### C BC ####[facility] Termsjquzv2672 [place] [address]Dr. Farhat Leal IG % 1.0 % Critically high 0.0-0.5 [facility] Comment on above: Performed By: #### C BC ####[facility] Fdrtgejkzd2302 [place] [address]Dr. Farhat Leal LYMPH # 0.7 103/ul Critically low 1.2-3.8 [facility] Comment on above: Performed By: #### C BC ####[facility] Uqbwbrjduw6492 [place] [address]Dr. Madelynlorri Leal Lymphocytes/100 WBC (Bld) 4.9 % Critically low 20.5-60.0 [facility] Comment on above: Performed By: #### C BC ####[facility] Tkxgvkdffw9648 [place] [address]Dr. Madelynlorri Leal MANUAL DIFF REQ NO Normal [facility] Comment on above: Performed By: #### C BC ####[facility] Gxgeokrvcv[address] [place], [place] [address]Dr. Farhat Elvis MCH (RBC) [Entitic mass] 29.6 pg Normal 25.9-34.0 [facility] Comment on above: Performed By: #### C BC ####[facility] Fnngglzrrz[address] [place], [place] [address]Dr. Farhat Leal MCHC (RBC) [Mass/Vol] 32.2 g/dL Normal 29.9-35.2 [facility] Comment on above: Performed By: #### C BC ####[facility] Vrglzfknty7278 [place] [address]Dr. Farhat Leal MCV (RBC) [Entitic vol] 92.0 fL Normal 80.0-94.0 [facility] Comment on above: Performed By: #### C BC ####[facility] Bonbntfght3963 [place] [address]Dr. Farhat Leal MONO # 1.3 103/ul Critically high 0.3-0.8 [facility] [place] [facility] Comment on above: Performed By: #### C BC ####[facility] Vuxkzubdec1153 [place] [address]Dr. Madelynlorri Leal Monocytes/100 WBC (Bld) 9.6 % Normal 1.7-12.0 [facility] Comment on above: Performed By: #### C BC ####[facility] H[address]cpjvwqdm[address] [place], [place] [address]Dr. Farhat Leal NEUT # 11.2 103/ul Critically high 1.4-6.[address] [facility] Comment on above: Performed By: #### C BC ####[facility] Mqgidswdui5380 [place] [address]Dr. Farhat Elvis Neutrophils/100 WBC (Bld) 83.0 % Critically high 43.0-75.0 [facility] Comment on above: Performed By: #### C BC ####[facility] Rghoxvnwjx6444 [place] [address]Dr. Farhat Leal Platelet mean volume (Bld) [Entitic vol] 9.5 fL Normal 9.5-13.5 [facility] Comment on above: Performed By: #### C BC ####[facility] Tglstijdhk0951 [place] [address]Dr. Farhat Elvis PLT 395 103/ul Normal 150-450 [facility] Comment on above: Performed By: #### C BC ####[facility] [address]mrexrgvnj[address] [place], [place] [address]. Farhat Leal RBC 3.38 106/ul Critically low 4.70-6.10 [facility] [place] [facility] Comment on above: Performed By: #### C BC ####[facility] Imejbaxhax0870 [place], [place] [address]Mm. Farhat Leal WBC 13.4 103/ul Critically high 4.0-11.[address] [facility] Comment on above: Performed By: #### C BC ####[facility] Tgqcmtilqn6076 [place] [phone]. Farhat Leal CRPon 11-24-2021 CRP 27.8 mg/dL Critically high <=1.0 [facility] Comment on above: Performed By: #### B ROUTE DELIVERY MANAGER, CMP, CRP ####[facility] Sixtbdbffg2291 [place] [phone]. Farhat Leal CULTURE ANAEROBICon 11-25-19 22 CULTURE ANAEROBIC Culture Observations : NO GROWTH OF ANAEROBES AT 72 HOURS. [facility] Comment on above: Performed By: #### A NACX ####[facility] Xuasewgsfj9880 [place] [phone]. Yilorri Leal CULTURE ANAEROBIC Culture Observations : NO GROWTH OF ANAEROBES AT 72 HOURS. [facility] Comment on above: Performed By: #### A NACX ####[facility] Rgphvxdpug2457 [place] [phone]. Yilorri Leal CULTURE ANAEROBIC Culture Observations : No growth of anaerobes at 72 hours. [facility] Comment on above: Performed By: #### A NACX ####[facility] Dxoiwzhpnb9619 [place] [phone]. Yilan Leal CULTURE ANAEROBIC Culture Observations : No growth of anaerobes at 72 hours. [facility] Comment on above: Performed By: #### A NACX ####[facility] Maohlphpaz5987 [place] [phone]. Farhat Leal CULTURE URINEon 11-24-2021 CULTURE URINE Culture Observations : NO GROWTH. [facility] Comment on above: Performed By: #### U RCX ####[facility] Gbhemuojai01[address] [place], [place] [address]Dr. Farhat Leal ECHOCARDIO M/2D COMPLETEon 1 ECHOCARDIO M/2D COMPLETE Normal [facility] ER URINE PROFILEon 2 Bilirubin Ql (U) Negative Normal NEGATIVE [facility] Comment on above: Performed By: #### E RUR ####[facility] Qqaurdyocv6867[address] [place], [place] [address]Dr. Madelynlorri Leal Clarity (U) CLEAR Normal CLEAR [facility] Comment on above: Performed By: #### E RUR ####[facility] Dmapkpxely956[address] [place], [place] [address]Dr. Madelynlorri Leal Color (U) YELLOW Normal YELLOW [facility] Comment on above: Performed By: #### E RUR ####[facility] Tvpcghfdvi60[address] [place], [place] [address]Dr. Farhat Leal ERUAHD A micrscopic examination will be performed if indicated. Normal [facility] Comment on above: Performed By: #### E RUR ####[facility] Hpaivvnaam2924[address] [place], [place] [address]Dr. Madelynlorri Leal Glucose Ql (U) Negative Normal NEGATIVE [facility] Comment on above: Performed By: #### E RUR ####[facility] Spvigrkuge5028[address] [place], [place] [address]Dr. Farhat Leal Hemoglobin Ql (U) Negative Normal NEGATIVE [facility] Comment on above: Performed By: #### E RUR ####[facility] Tulmgesbpj1925[address] [place], [place] [address]Dr. Farhat Leal Ketones Ql (U) TRACE Abnormal NEGATIVE [facility] Comment on above: Performed By: #### E RUR ####[facility] Esnuhkuucx109[address] [place], [place] [address]Dr. Farhat Leal LEUKOCYTES Negative Normal NEGATIVE [facility] Comment on above: Performed By: #### E RUR ####[facility] Zvtgnfldfy9095[address] [place], [place] [address]Dr. Farhat Leal Nitrite Ql (U) Negative Normal NEGATIVE [facility] Comment on above: Performed By: #### E RUR ####[facility] Wfabtqbuni722[address] [place], [place] [address]Dr. Farhat Leal pH (U) 5.5 [pH] Normal 5-9 [facility] Comment on above: Performed By: #### E RUR ####[facility] Bstksjyznf0058[address] [place], [place] [address]Dr. Farhat Leal SPEC GRAVITY 1.015 Normal 1.005-<=1.[address] [place] [address] Comment on above: Performed By: #### E RUR ####[facility] Ecbqszmgyc2436[address] [place], [place] [address]Dr. Farhat Leal UA PROTEIN Negative Normal NEGATIVE/ TRACE [facility] Comment on above: Performed By: #### E RUR ####[facility] Hunbuphirp1617[address] [place], [place] [address]Dr. Farhat Leal UR MICRO IND NOT INDICATED Normal [facility] [place] [facility] Comment on above: Performed By: #### E RUR ####[facility] Ouqrmxvpzg360[address] [place], [place] [address]Dr. Farhat Leal Urobilinogen Qn (U) 0.2 {Boyd'U}/dL Normal 0.2 - 1. 0 [facility] Comment on above: Performed By: #### E RUR ####[facility] Opimaclyji8939[address] [place], [place] [address]Dr. Farhat Leal GRAM STAINon 11-24-2021 DIPHTHEROIDS Normal [facility] Comment on above: Performed By: #### G STAIN ####[facility] Kquvzhdjjw1564[address] [place], [place] [address]Dr. Farhat Leal EPITHELIALS Normal [facility] Comment on above: Performed By: #### G STAIN ####[facility] Jsasnkyucs387[address] [place], [place] [address]Dr. Farhat Leal FUNGAL ELEMENTS Normal [facility] [place] [facility] Comment on above: Performed By: #### G STAIN ####[facility] Injnjofwji878[address] [place], [place] [address]Dr. Farhat Leal GRAM NEG BACILLI Normal [facility] Comment on above: Performed By: #### G STAIN ####[facility] Qcvhfgdedn9532 [place] [address]Dr. Farhat Leal GRAM NEG DIPPLOCOCCI Normal [facility] Comment on above: Performed By: #### G STAIN ####[facility] Nqsdpjqkwn0393 [place] [phone]. Farhat Leal GRAM POS BACILLI Normal [facility] Comment on above: Performed By: #### G STAIN ####[facility] Bpnpynoyfp5949 [place] [address]Dr. Farhat Leal GRAM POSITIVE COCCI FEW Normal [facility] Comment on above: Performed By: #### G STAIN ####[facility] Bztzicqkyh9983 [place] [address]Dr. Farhat Leal GRAM STAIN SOURCE RT ACHILLES TENDON Normal [facility] Comment on above: Performed By: #### G STAIN ####[facility] Mjtcaxcvtq[address] [place], [place] [address]Dr. Farhat Leal GS_DIPTH Normal [facility] Comment on above: Performed By: #### G STAIN ####[facility] Jfqxvqohnz8774 [place] [address]Dr. Farhat Leal WBC RARE Normal [facility] Comment on above: Performed By: #### G STAIN ####[facility] Dlwtimfygf8004 [place] [address]Dr. Farhat Leal COMMENTS NO ORGANISMS OBSERVED Normal [facility] Comment on above: Performed By: #### G STAIN ####[facility] Cwbpeyewhq2096 [place] [address]Dr. Farhat Leal DIPHTHEROIDS Normal [facility] Comment on above: Performed By: #### G STAIN ####[facility] Tetxfauqao4640 [place] [address]Dr. Farhat Leal EPITHELIALS Normal [facility] Comment on above: Performed By: #### G STAIN ####[facility] Lmoannaatc5114 [place] [address]Dr. Farhat Leal FUNGAL ELEMENTS Normal [facility] Comment on above: Performed By: #### G STAIN ####[facility] Xnvxulpdic9244 [place] [phone]. Farhat Leal GRAM NEG BACILLI Normal [facility] Comment on above: Performed By: #### G STAIN ####[facility] Prlkddztjo1047 [place] [address]Dr. Farhat Leal GRAM NEG DIPPLOCOCCI Normal [facility] Comment on above: Performed By: #### G STAIN ####[facility] Cwnunbtqwj3960 [place] [address]Dr. Farhat Leal GRAM POS BACILLI Normal [facility] Comment on above: Performed By: #### G STAIN ####[facility] Hnvfiqattn3066 [place] [address]Dr. Farhat Leal GRAM POSITIVE COCCI Normal [facility] Comment on above: Performed By: #### G STAIN ####[facility] Phnbshepiu0715 [place] [address]Dr. Farhat Leal GRAM STAIN SOURCE RT CALCANEOUS Normal [facility] Comment on above: Performed By: #### G STAIN ####[facility] Pkjwizurhn135[address] [place], [place] [address]Dr. Farhat Leal GS_DIPTH Normal [facility] Comment on above: Performed By: #### G STAIN ####[facility] Wbbspcrktf4998[address] [place], [place] [address]Dr. Farhat Leal WBC RARE Normal [facility] Comment on above: Performed By: #### G STAIN ####[facility] Gufdyxwmhd3228 [place] [address]Dr. Farhat Leal DIPHTHEROIDS Normal [facility] Comment on above: Performed By: #### G STAIN ####[facility] Opnynsxuis0697 [place] [address]Dr. Farhat Leal EPITHELIALS Normal [facility] Comment on above: Performed By: #### G STAIN ####[facility] Ypiulpectw6467 [place] [address]Dr. Farhat Leal FUNGAL ELEMENTS Normal [facility] Comment on above: Performed By: #### G STAIN ####[facility] Dtjilvnufm5969 [place] [address]Dr. Farhat Leal GRAM NEG BACILLI FEW Normal [facility] Comment on above: Performed By: #### G STAIN ####[facility] Sovsjcxrhk4959 [place] [address]Dr. Farhat Leal GRAM NEG DIPPLOCOCCI Normal [facility] Comment on above: Performed By: #### G STAIN ####[facility] Wyqeejemwu7615 [place] [address]Dr. Farhat Leal GRAM POS BACILLI Normal [facility] Comment on above: Performed By: #### G STAIN ####[facility] Pvmgnklmla655[address] [place], [place] [address]Dr. Farhat Leal GRAM POSITIVE COCCI FEW Normal [facility] Comment on above: Performed By: #### G STAIN ####[facility] Hqfuncukbh754[address] [place], [place] [address]Dr. Farhat Leal GRAM STAIN SOURCE #2 Rt foot abscess Normal [facility] Comment on above: Performed By: #### G STAIN ####[facility] Xanozlyuuc2034[address] [place], [place] [address]Dr. Farhat Leal GS_DIPTH Normal [facility] Comment on above: Performed By: #### G STAIN ####[facility] Sfvisromwq498[address] [place], [place] [address]Dr. Farhat Leal WBC RARE Normal [facility] Comment on above: Performed By: #### G STAIN ####[facility] Igpdyxpydm5[address] [place], [place] [address]Dr. Farhat Leal DIPHTHEROIDS Normal [facility] Comment on above: Performed By: #### G STAIN ####[facility] Uoffcersrn2618[address] [place], [place] [address]Dr. Farhat Leal EPITHELIALS Normal [facility] Comment on above: Performed By: #### G STAIN ####[facility] Bgfcqyajpy7384[address] [place], [place] [address]Dr. Farhat Leal FUNGAL ELEMENTS Normal [facility] Comment on above: Performed By: #### G STAIN ####[facility] Iiupshotuk3136[address] [place], [place] [address]Dr. Farhat Leal GRAM NEG BACILLI FEW Normal [facility] Comment on above: Performed By: #### G STAIN ####[facility] Qgbupguhbz0011 [place] [address]Dr. Farhat Leal GRAM NEG DIPPLOCOCCI Normal [facility] Comment on above: Performed By: #### G STAIN ####[facility] Olkfuitaux7906 [place] [address]Dr. Farhat Leal GRAM POS BACILLI Normal [facility] Comment on above: Performed By: #### G STAIN ####[facility] Supdnhkxyz1149 [place] [address]Dr. Farhat Leal GRAM POSITIVE COCCI FEW Normal [facility] Comment on above: Performed By: #### G STAIN ####[facility] Gbchpyjuem1469 [place] [address]Dr. Farhat Leal GRAM STAIN SOURCE #1 Rt foot abscess Normal [facility] Comment on above: Performed By: #### G STAIN ####[facility] Orxesmvjcz0988[address] [place], [place] [address]Dr. Farhat Leal GS_DIPTH Normal [facility] Comment on above: Performed By: #### G STAIN ####[facility] Juwiufvxez8291 [place] [address]Dr. Farhat Leal WBC NONE SEEN Normal [facility] Comment on above: Performed By: #### G STAIN ####[facility] Zsyqyerekn3113 [place] [address]Dr. Farhat Leal POINT OF CARE GLUCOSEon 11-15 Glucose [Mass/Vol] 331 mg/dL Critically high 74-106 [facility] Comment on above: Performed By: #### P OCGLUC ####[facility] Glklcxurxg4591 [place] [address]Dr. Farhat Leal Glucose [Mass/Vol] 236 mg/dL Critically high 74-106 [facility] Comment on above: Performed By: #### P OCGLUC ####[facility] Bmjbfwvksf5892 [place] [address]Dr. Farhat Leal PROF 14(COMP METB)on 022 Albumin [Mass/Vol] 1.6 g/dL Critically low 3.4-5.0 [facility] Comment on above: Performed By: #### B ROUTE DELIVERY MANAGER, CMP, CRP ####[facility] Tatfmuvitg8244[address] [place], [place] [address]Dr. Farhat Leal Albumin/Globulin [Mass ratio] 0.4 {ratio} Normal [facility] Comment on above: Performed By: #### B ROUTE DELIVERY MANAGER, CMP, CRP ####[facility] Xjehfqbqgj4765[address] [place], [place] [address]Dr. Farhat Leal ALP [Catalytic activity/Vol] 94 U/L Normal 46-116 [facility] Comment on above: Performed By: #### B ROUTE DELIVERY MANAGER, CMP, CRP ####[facility] Ghafltvlja3499[address] [place], [place] [address]Dr. Farhat Leal ALT [Catalytic activity/Vol] 49 U/L Normal 16-63 [facility] Comment on above: Performed By: #### B ROUTE DELIVERY MANAGER, CMP, CRP ####[facility] Eictpgcnuw4117[address] [place], [place] [address]Dr. Farhat Leal Anion gap [Moles/Vol] 12.5 mmol/L Normal [facility] Comment on above: Performed By: #### B ROUTE DELIVERY MANAGER, CMP, CRP ####[facility] Mntvzaijvn2067[address] [place], [place] [address]Dr. Farhat Leal AST [Catalytic activity/Vol] 102 U/L Critically high 15-37 [facility] Comment on above: Performed By: #### B ROUTE DELIVERY MANAGER, CMP, CRP ####[facility] Grpljnlfzt1522[address] [place], [place] [address]Dr. Farhat Leal Bilirubin [Mass/Vol] 0.8 mg/dL Normal 0.2-1.0 [facility] Comment on above: Performed By: #### B ROUTE DELIVERY MANAGER, CMP, CRP ####[facility] Nocfsoyvnw6224[address] [place], [place] [address]Dr. Farhat Leal Calcium [Mass/Vol] 8.4 mg/dL Critically low 8.5-10.1 [facility] Comment on above: Performed By: #### B ROUTE DELIVERY MANAGER, CMP, CRP ####[facility] Ntaryvmhnx6924 [place] [address]Dr. Madelynlorri Leal Chloride [Moles/Vol] 96 mmol/L Critically low 98-107 [facility] Comment on above: Performed By: #### B ROUTE DELIVERY MANAGER, CMP, CRP ####[facility] Lqkagzkcse2450[address] [place], [place] [address]Dr. Farhat Leal CO2 [Moles/Vol] 24.8 mmol/L Normal 21.0-32.[address] [facility] Comment on above: Performed By: #### B ROUTE DELIVERY MANAGER, CMP, CRP ####[facility] Uaopyixetx1245[address] [place], [place] [address]Dr. Madelynlorri Elvis Creatinine [Mass/Vol] 1.36 mg/dL Critically high 0.70-1.30 [facility] Comment on above: Performed By: #### B ROUTE DELIVERY MANAGER, CMP, CRP ####[facility] Hycxtisetx9546[address] [place], [place] [address]Dr. Farhat Leal EGFR-AF SOMALI >60 Normal >=60 [facility] Comment on above: Performed By: #### B ROUTE DELIVERY MANAGER, CMP, CRP ####[facility] Zctpttgggh6334[address] [place], [place] [address]Dr. Madelynlorri Elvis EGFR-NON AF SOMALI 51 mL/min/1.73m2 Critically low >=60 [facility] Comment on above: Performed By: #### B ROUTE DELIVERY MANAGER, CMP, CRP ####[facility] Wzyanpkavk5179[address] [place], [place] [address]Dr. Farhat Leal Globulin (S) [Mass/Vol] 4.1 g/dL Normal [facility] Comment on above: Performed By: #### B ROUTE DELIVERY MANAGER, CMP, CRP ####[facility] Dyomwhhwkv3711 [place] [address]Dr. Farhat Leal Glucose [Mass/Vol] 204 mg/dL Critically high 74-106 [facility] Comment on above: Performed By: #### B ROUTE DELIVERY MANAGER, CMP, CRP ####[facility] Psbdnpfhfj4485[address] [place], [place] [address]Dr. Farhat Leal Potassium [Moles/Vol] 4.3 mmol/L Normal 3.5-5.1 [facility] Comment on above: Performed By: #### B ROUTE DELIVERY MANAGER, CMP, CRP ####[facility] Wotzbgcrgs8487 [place] [address]Dr. Farhat Leal Protein [Mass/Vol] 5.7 g/dL Critically low 6.4-8.2 [facility] Comment on above: Performed By: #### B ROUTE DELIVERY MANAGER, CMP, CRP ####[facility] Khojimczzw8569 [place] [address]Dr. Farhat Leal Sodium [Moles/Vol] 129 mmol/L Critically low 136-145 [facility] Comment on above: Performed By: #### B ROUTE DELIVERY MANAGER, CMP, CRP ####[facility] Iigugkkdab836[address] [place], [place] [address]Dr. Farhat Leal Urea nitrogen [Mass/Vol] 41.0 mg/dL Critically high 7.0-18.0 [facility] Comment on above: Performed By: #### B ROUTE DELIVERY MANAGER, CMP, CRP ####[facility] Uazbcukasa4416[address] [place], [place] [address]Dr. Farhat Leal Urea nitrogen/Creatinine [Mass ratio] 30.1 mg/mg Normal [facility] Comment on above: Performed By: #### B ROUTE DELIVERY MANAGER, CMP, CRP ####[facility] Izgxszrsaw05[address] [place], [place] [address]Dr. Farhat Leal PROTIMEon 11-24-2021 INR Coag (PPP) [Relative time] 2.20 {INR} Normal [facility] Comment on above: Performed By: #### P T ####[facility] Wneutmzohk7897[address] [place], [place] [address]Dr. Farhat Leal INR GUIDELINES SEE BELOW Normal [facility] Comment on above: Result Comment: MALINA RED INR: 2.0 - 3.0 CONDITIONS NOT LISTED BELOW 2.5 - 3.5 FOR PROSTHETIC HEART VALVE REPLACEMENT 2.5 - 3.5 RECURRENT THROMBOSIS Performed By: #### P T ####[facility] Oorbcsjqwd1545[address] [place], [place] [address]Dr. Farhat Leal PT Coag (PPP) [Time] 22.6 s Critically high 9.0-11.6 [facility] Comment on above: Performed By: #### P T ####[facility] Ecmgswjtlp0151 [place] [phone]. Farhat Leal [facility] SED RATE 80 mm/hr Critically high <=20 [facility] Comment on above: Performed By: #### S EDR ####[facility] Wkdfgjkita1117 [place] [phone]. Farhat Leal BLOOD CULTURE ID PANELon A. baumannii Not detected Normal NOT DETECTED [facility] Comment on above: Performed By: #### B CID2 ####[facility] Kvkayvoqul7[address] [place], [place] [id number]. Farhat Leal Bacteriodes fragilis Not detected Normal NOT DETECTED [facility] Comment on above: Performed By: #### B CID2 ####[facility] Kxpgvdbvby45[address] [place], [place] [address]Dr. Farhat Leal BCID CONTROLS PASSED Normal [facility] Comment on above: Performed By: #### B CID2 ####[facility] Ukbetgcodx6581 [place] [address]Dr. Farhat Elvis BCIDBTHD BLOOD CULTURE BOTTLE INFORMATION Normal [facility] Comment on above: Performed By: #### B CID2 ####[facility] Gbneqsazco6885 [place] [phone]. Farhat Leal BCIDHD1 ANTIMICROBIAL RESISTANCE GENES Normal [facility] Comment on above: Performed By: #### B CID2 ####[facility] Thjlaizjxw4023[address] [place], [place] [address]Dr. Farhat Leal BCIDHD2 SEE BELOW Normal [facility] Comment on above: Result Comment: Note : Antimicrobial resitance can occur via multiple mechanisms. A Not Detected result for the [employer] antomicrobial resistance gene assays does not indicate antimicrobial susceptibility. Subculturing is required for species identification and susceptibility testing of isolates. Performed By: #### B CID2 ####[facility] Wjzltdrstm2739[address] [place], [place] [address]Dr. Farhat Leal BCIDHD3 Positive Normal [facility] Comment on above: Performed By: #### B CID2 ####[facility] Qbbadvpzbr6635 [place] [address]Dr. Farhat Leal BCIDHD4 Negative Normal [facility] Comment on above: Performed By: #### B CID2 ####[facility] Kqiemcufkc3994 [place] [address]Dr. Farhat Leal BCIDHD5 YEAST Normal [facility] Comment on above: Performed By: #### B CID2 ####[facility] Jfjuxarkth5520[address] [place], [place] [address]Dr. Farhat Leal Bottle Set: Set 1 Normal [facility] Comment on above: Performed By: #### B CID2 ####[facility] Zkxuptlyjm0086[address] [place], [place] [address]Dr. Farhat Leal Bottle: Aerobic Normal [facility] Comment on above: Performed By: #### B CID2 ####[facility] Xngopnehwy2234[address] [place], [place] [address]Dr. Farhat Leal C. neoformans/gattii Not detected Normal NOT DETECTED [facility] Comment on above: Performed By: #### B CID2 ####[facility] Rmmnucgdit174[address] [place], [place] [address]Dr. Farhat Leal Disha albicans Not detected Normal NOT DETECTED [facility] Comment on above: Performed By: #### B CID2 ####[facility] Rralvkoyfh1967[address] [place], [place] [address]Dr. Yilorri Leal Disha auris Not detected Normal NOT DETECTED [facility] Comment on above: Performed By: #### B CID2 ####[facility] Gkowbejzhu9636[address] [place], [place] [address]Dr. Yilorri Leal Disha glabrata Not detected Normal NOT DETECTED [facility] Comment on above: Performed By: #### B CID2 ####[facility] Nqsuxfvtiv8964[address] [place], [place] [address]Dr. Yilorri Leal Disha Krusei Not detected Normal NOT DETECTED [facility] Comment on above: Performed By: #### B CID2 ####[facility] Dydqjztnwu7449[address] [place], [place] [address]Dr. Yilorri Leal Disha Parapsilosis Not detected Normal NOT DETECTED [facility] Comment on above: Performed By: #### B CID2 ####[facility] Zgyfzikkyv90[address] [place], [place] [address]Dr. Farhat Leal Disha Tropicalis Not detected Normal NOT DETECTED [facility] Comment on above: Performed By: #### B CID2 ####[facility] Aianwokfmi2535[address] [place], [place] [address]Dr. Madelynlorri Leal CTX-M Resistant Gene Not Applicable Normal NOT DETECTE D [facility] Comment on above: Performed By: #### B CID2 ####[facility] Hwxowaxasd1874[address] [place], [place] [address]Dr. Farhat Leal E. Cloacae complex Not detected Normal NOT DETECTED [facility] Comment on above: Performed By: #### B CID2 ####[facility] Nurttkxtdu7046[address] [place], [place] [address]Dr. Farhat Leal E. faecalis Not detected Normal NOT DETECTED [facility] Comment on above: Performed By: #### B CID2 ####[facility] Hdsrqkdnpe4230[address] [place], [place] [address]Dr. Farhat Leal E. faecium Not detected Normal NOT DETECTED [facility] Comment on above: Performed By: #### B CID2 ####[facility] Rpbxpnxhlz5311[address] [place], [place] [address]Dr. Farhat Leal Enterobacteriaceae Not detected Normal NOT DETECTED [facility] Comment on above: Performed By: #### B CID2 ####[facility] Uyounawrbe9057[address] [place], [place] [address]Dr. Farhat Leal Escherichia coli Not detected Normal NOT DETECTED [facility] Comment on above: Performed By: #### B CID2 ####[facility] Gtnkzfygqs1039[address] [place], [place] [address]Dr. Farhat Leal H. influenzae Not detected Normal NOT DETECTED [facility] Comment on above: Performed By: #### B CID2 ####[facility] Pxqooevhzc088[address] [place], [place] [address]Dr. Madelynlorri Leal IMP Resistant Gene Not Applicable Normal NOT DETECTED [facility] Comment on above: Performed By: #### B CID2 ####[facility] Elloeypxdh[address] [place] [address]Dr. Farhat Leal K. oxytoca Not detected Normal NOT DETECTED [facility] Comment on above: Performed By: #### B CID2 ####[facility] Bmfmgiowbw0575 [place] [address]Dr. Farhat Leal K. pneumoniae Not detected Normal NOT DETECTED [facility] Comment on above: Performed By: #### B CID2 ####[facility] Dpyequsowz899065 [address] [place], [place] [address]Dr. Farhat Leal Klebsiella aerogenes Not detected Normal NOT DETECTED [facility] Comment on above: Performed By: #### B CID2 ####[facility] Ygmrkbvofv789765 [address] [place], [place] [address]Dr. Farhat Leal KPC Resistant Gene Not Applicable Normal NOT DETECTED [facility] Comment on above: Performed By: #### B CID2 ####[facility] Gaibdtaovd8813[address] [place], [place] [address]Dr. Farhat Leal List. monocytogenes Not detected Normal NOT DETECTED [facility] Comment on above: Performed By: #### B CID2 ####[facility] Geyivsrfys3020[address] [place], [place] [address]Dr. Farhat Leal Mcr-1 Resistant Gene Not Applicable Normal NOT DETECTE D [facility] Comment on above: Performed By: #### B CID2 ####[facility] Wteawbdyhq040[address] [place], [place] [address]Dr. Farhat Leal mecA/C Not Applicable Normal NOT DETECTED [facility] Comment on above: Performed By: #### B CID2 ####[facility] Sxasptdjls8045[address] [place], [place] [address]Dr. Farhat Leal mecA/C MREJ Detected Abnormal NOT DETECTED [facility] Comment on above: Performed By: #### B CID2 ####[facility] Hdafgfwpbg3071 [place] [address]Dr. Farhat Leal N. meningitidis Not detected Normal NOT DETECTED [facility] Comment on above: Performed By: #### B CID2 ####[facility] Hhsxvejzkw507665 [address] [place], [place] [address]Dr. Farhat Leal NDM Resistant Gene Not Applicable Normal NOT DETECTED [facility] Comment on above: Performed By: #### B CID2 ####[facility] Zwhezqmhcz353965 [address] [place], [place] [address]Dr. Farhat Leal Oxa-48-like Not Applicable Normal NOT DETECTED [facility] Comment on above: Performed By: #### B CID2 ####[facility] Gdhoppjkkh6929[address] [place], [place] [address]Dr. Farhat Leal Proteus Not detected Normal NOT DETECTED [facility] Comment on above: Performed By: #### B CID2 ####[facility] Nlruebgiou952065 [address] [place], [place] [address]Dr. Farhat Leal Pseud. aeruginosa Not detected Normal NOT DETECTED [facility] Comment on above: Performed By: #### B CID2 ####[facility] Qrdqimfxwi657765 [address] [place], [place] [address]Dr. Farhat Leal S. maltophilia Not detected Normal NOT DETECTED [facility] Comment on above: Performed By: #### B CID2 ####[facility] Bxdwymoiwh784365 [address] [place], [place] [address]Dr. Farhat Leal Salmonella Not detected Normal NOT DETECTED [facility] Comment on above: Performed By: #### B CID2 ####[facility] Dzdeepepod635265 [address] [place], [place] [address]Dr. Farhat Leal Seratia marcescens Not detected Normal NOT DETECTED [facility] Comment on above: Performed By: #### B CID2 ####[facility] Uzpglowzmt910565 [address] [place], [place] [address]Dr. Farhat Leal Site: Rt Hand Normal [facility] Comment on above: Performed By: #### B CID2 ####[facility] Qqlqkggggj569765 [address] [place], [place] [address]Dr. Farhat Leal Staph. aureus Detected Abnormal NOT DETECTED [facility] Comment on above: Performed By: #### B CID2 ####[facility] Vjxuzqulqh4518[address] [place], [place] [address]Dr. Farhat Leal Staph. epidermidis Not detected Normal NOT DETECTED [facility] Comment on above: Performed By: #### B CID2 ####[facility] Mwzxnsxgyg7460[address] [place], [place] [address]Dr. Farhat Leal Staph. lugdunensis Not detected Normal NOT DETECTED [facility] Comment on above: Performed By: #### B CID2 ####[facility] Lckenxpwip3257[address] [place], [place] [address]Dr. Farhat Leal Staphylococcus Detected Abnormal NOT DETECTED [facility] Comment on above: Performed By: #### B CID2 ####[facility] Bkpleiwkpm600[address] [place], [place] [address]Dr. Farhat Leal Strep. agalactiae Not detected Normal NOT DETECTED [facility] Comment on above: Performed By: #### B CID2 ####[facility] Yxjpgnqtwu4546[address] [place], [place] [address]Dr. Farhat Leal Strep. pneumoniae Not detected Normal NOT DETECTED [facility] Comment on above: Performed By: #### B CID2 ####[facility] Uuygzsdkuo6248[address] [place], [place] [address]Dr. Farhat Leal Strep. pyogenes Not detected Normal NOT DETECTED [facility] Comment on above: Performed By: #### B CID2 ####[facility] Hzopyulmqg400365 [address] [place], [place] [address]Dr. Farhat Leal Streptococcus Not detected Normal NOT DETECTED [facility] Comment on above: Performed By: #### B CID2 ####[facility] Ufbemerpxc8860[address] [place], [place] [address]Dr. Farhat Leal Teodoro/B Resist. Gene Not Applicable Normal NOT DETECTED [facility] Comment on above: Performed By: #### B CID2 ####[facility] Mmzbwgtshj9474[address] [place], [place] [address]Dr. Farhat Leal VIM Resistant Gene Not Applicable Normal NOT DETECTED [facility] Comment on above: Performed By: #### B CID2 ####[facility] Wextrksmuv3897[address] [place], [place] [address]Dr. Farhat Leal BNPon 11-23-2021 Natriuretic peptide B (Bld) [Mass/Vol] 16586.0 pg/mL Critically high <=1,800.0 [facility] Comment on above: Performed By: #### C MP, CMADM, BNP ####[facility] Rmryppypmr98[address] [place] [id number]. Farhat Leal CARDIAC AMANDA ADMITon 022 CK [Catalytic activity/Vol] 41 U/L Normal 39-308 [facility] Comment on above: Performed By: #### C MP, CMADM, BNP ####[facility] Iaixincbdp3876 [place] [address]Dr. Farhat Leal CK.MB [Mass/Vol] 0.98 ng/mL Normal <=3.[address] [facility] Comment on above: Performed By: #### C MP, CMADM, BNP ####[facility] Bxvpwowdkc9667 [place] [address]Dr. Farhat Leal HSTROP 30.1 pg/mL Normal 4.0-76.1 [facility] Comment on above: Result Comment: CUT- OFF POINTS HAVE BEEN ESTABLISHED BASED ON THE FOURTH UNIVERSAL DEFINITIONS OF MYOCARDIALINFARCTION. THE UPPER REFERENCE LIMIT (URL) OF TROPONIN, DEFINED THE 99TH PERCENTILE OFcTnI DISTRIBUTION IN A REFERENCE POPULATION, HAS BEEN CONFIRMED THE DECISION THRESHOLDFOR CT DIAGNOSIS. Performed By: #### C MP, CMADM, BNP ####[facility] Yquoxehhqk7474 [place] [address]Dr. Farhat Leal VALERIA 160 ng/mL Critically high 16-96 [facility] Comment on above: Performed By: #### C MP, CMADM, BNP ####[facility] Gtpkvrufbi9750 [place] [phone]. Farhat Leal CBC AUTO DIFFon 11-23-2021 BASO # 0.0 103/ul Normal 0.0-0.1 [facility] Comment on above: Performed By: #### C BC ####[facility] Vzovghsvhb3022 [place] [address]Dr. Farhat Leal Basophils/100 WBC (Bld) 0.2 % Normal 0.2-2.0 [facility] Comment on above: Performed By: #### C BC ####[facility] Vmatevjavp8284 [place] [address]Dr. Farhat Leal EO # 0.0 103/ul Normal 0.0-0.7 [facility] Comment on above: Performed By: #### C BC ####[facility] Ksbczetptv2087 [place] [address]Dr. Farhat Elvis Eosinophils/100 WBC (Bld) 0.1 % Critically low 0.9-7.0 [facility] Comment on above: Performed By: #### C BC ####[facility] Ngfgkryfwo4952 [place] [address]Dr. Farhat Elvis Erythrocyte distribution width (RBC) [Ratio] 13.4 % Normal 11.0-15.0 [facility] Comment on above: Performed By: #### C BC ####[facility] Enionfeenn090[address] [place], [place] [address]DrSkylar Madelynlorri Leal Hematocrit (Bld) [Volume fraction] 31.6 % Critically low 42.0-54.0 [facility] Comment on above: Performed By: #### C BC ####[facility] Gpfcapabst287[address] [place], [place] [address]Dr. Fahrat Leal Hemoglobin (Bld) [Mass/Vol] 10.4 g/dL Critically low 14.0-18.0 [facility] Comment on above: Performed By: #### C BC ####[facility] Djrdxybeya2737 [place] [address]Dr. Farhat Leal IG # 0.11 10e3/ul Critically high 0.00-0.03 [facility] Comment on above: Performed By: #### C BC ####[facility] Cvzcpldjnq6780[address] [place], [place] [address]Dr. Farhat Leal IG % 0.7 % Critically high 0.0-0.5 [facility] Comment on above: Performed By: #### C BC ####[facility] Hydzwpiamk7413[address] [place], [place] [address]DrSkylar Leal LYMPH # 0.5 103/ul Critically low 1.2-3.8 [facility] Comment on above: Performed By: #### C BC ####[facility] Potlnvuomo2882 [place] [address]Dr. Farhat Leal Lymphocytes/100 WBC (Bld) 2.8 % Critically low 20.5-60.0 [facility] Comment on above: Performed By: #### C BC ####[facility] Caznggjxmu4200 [place] [address]DrSkylar Leal MANUAL DIFF REQ NO Normal [facility] Comment on above: Performed By: #### C BC ####[facility] Eqgghxrmii1845 [place] [address]Dr. Farhat Leal MCH (RBC) [Entitic mass] 29.8 pg Normal 25.9-34.0 [facility] Comment on above: Performed By: #### C BC ####[facility] Bocdfmoqeg7130[address] [place], [place] [address]Dr. Farhat Leal MCHC (RBC) [Mass/Vol] 32.9 g/dL Normal 29.9-35.2 [facility] Comment on above: Performed By: #### C BC ####[facility] Xyiipldkgb7044[address] [place], [place] [address]DrSkylar Leal MCV (RBC) [Entitic vol] 90.5 fL Normal 80.0-94.0 [facility] Comment on above: Performed By: #### C BC ####[facility] Ktevlqxgov107[address] [place], [place] [address]Dr. Farhat Leal MONO # 1.3 103/ul Critically high 0.3-0.8 [facility] Comment on above: Performed By: #### C BC ####[facility] Iuihjzeqbf4878[address] [place], [place] [address]Dr. Farhat Leal Monocytes/100 WBC (Bld) 8.3 % Normal 1.7-12.0 [facility] Comment on above: Performed By: #### C BC ####[facility] Wyhtvdkhnd433[address] [place], [place] [address]Dr. Farhat Leal NEUT # 13.9 103/ul Critically high 1.4-6.[address] [facility] Comment on above: Performed By: #### C BC ####[facility] Fxvtreiztu0819 [place] [address]Dr. Farhat Leal Neutrophils/100 WBC (Bld) 87.9 % Critically high 43.0-75.0 [facility] Comment on above: Performed By: #### C BC ####[facility] Pthpczaood8336 [place] [address]Dr. Farhat Leal Platelet mean volume (Bld) [Entitic vol] 9.3 fL Critically low 9.5-13.5 [facility] Comment on above: Performed By: #### C BC ####[facility] Gwxfzqxwqp1312 [place] [address]Dr. Farhat Leal PLT 390 103/ul Normal 150-450 [facility] Comment on above: Performed By: #### C BC ####[facility] Ftnztidjxb7156[address] [place], [place] [address]Dr. Farhat Leal RBC 3.49 106/ul Critically low 4.70-6.10 [facility] Comment on above: Performed By: #### C BC ####[facility] Kwwngpstxo5917 [place] [address]Dr. Farhat Leal WBC 15.9 103/ul Critically high 4.0-11.[address] [facility] Comment on above: Performed By: #### C BC ####[facility] Srhmjzgsno1416[address] [place], [place] [address]Dr. Farhat Leal CT HEAD WO CONon 11-23-2021 CT HEAD WO CON Normal [facility] CULTURE BLOODon 11-23-2021 Microscopic examination of blood, culture Culture Observations: NO GROWTH AT 5 DAYS. Normal [facility] Comment on above: Performed By: #### B LDCX2 ####[facility] Hbaxpbcumz6371 [place] [address]Dr. Farhat Elvis Covid-19 PCR (CVDTB)on SARS-CoV-2 (COVID-19) RNA JOSH+probe Ql (Unsp spec) Not detected Normal NOT DETECTED [facility] Comment on above: Result Comment: When [...] for this test is supported by the Assistant Produce Manager of Health and Human Service's declaration that [...] Performed By: #### C VDTBH ####[facility] Llitstvruc0948[address] [place], [place] [address]DrSkylar Leal LACTATE/LACTIC ACIDon 2021 Lactate [Moles/Vol] 1.3 mmol/L Normal 0.4-1.9 [facility] Comment on above: Performed By: #### L ACT ####[facility] Siehltqvno4912[address] [place], [place] [address]DrSkylar Leal Lactate [Moles/Vol] 1.3 mmol/L Normal 0.4-1.9 [facility] Comment on above: Performed By: #### L ACT ####[facility] Tqmgyxvkbf9425[address] [place], [place] [address]DrSkylar Leal POINT OF CARE GLUCOSEon Glucose [Mass/Vol] 252 mg/dL Critically high 74-106 [facility] Comment on above: Performed By: #### P OCGLUC ####[facility] Eqemscjcrn9698[address] [place], [place] [address]DrSkylar Leal PROF 14(COMP METB)on 022 Albumin [Mass/Vol] 1.6 g/dL Critically low 3.4-5.0 [facility] Comment on above: Performed By: #### C MP, CMADM, BNP ####[facility] Rtbpoomfyi0639 [place] [address]Dr. Farhat Elvis Albumin/Globulin [Mass ratio] 0.4 {ratio} Normal [facility] Comment on above: Performed By: #### C MP, CMADM, BNP ####[facility] Nimkhhsdco3823 [place] [address]Dr. Farhat Elvis ALP [Catalytic activity/Vol] 98 U/L Normal 46-116 [facility] Comment on above: Performed By: #### C MP, CMADM, BNP ####[facility] Bvqvencblp8915 [place] [address]Dr. Farhat Leal ALT [Catalytic activity/Vol] 52 U/L Normal 16-63 [facility] Comment on above: Performed By: #### C MP, CMADM, BNP ####[facility] Iceltlyndw3544 [place] [address]Dr. Farhat Leal Anion gap [Moles/Vol] 9.8 mmol/L Normal [facility] Comment on above: Performed By: #### C MP, CMADM, BNP ####[facility] Cuolwhgbmr4114[address] [place], [place] [address]Dr. Farhat Leal AST [Catalytic activity/Vol] 122 U/L Critically high 15-37 [facility] Comment on above: Performed By: #### C MP, CMADM, BNP ####[facility] Injncermgq9826 [place] [address]Dr. Farhat Leal Bilirubin [Mass/Vol] 0.7 mg/dL Normal 0.2-1.0 [facility] Comment on above: Performed By: #### C MP, CMADM, BNP ####[facility] Cfhghksdof8618 [place] [address]Dr. Farhat Leal Calcium [Mass/Vol] 8.6 mg/dL Normal 8.5-10.1 [facility] Comment on above: Performed By: #### C MP, CMADM, BNP ####[facility] Mfovvjkele0959 [place] [address]Dr. Farhat Leal Chloride [Moles/Vol] 95 mmol/L Critically low 98-107 [facility] Comment on above: Performed By: #### C MP, CMADM, BNP ####[facility] Gylxducomu7735 [place] [address]Dr. Farhat Leal CO2 [Moles/Vol] 29.6 mmol/L Normal 21.0-32.[address] [facility] Comment on above: Performed By: #### C MP, CMADM, BNP ####[facility] Uglzoeozfg1694 [place] [address]Dr. Farhat Leal Creatinine [Mass/Vol] 1.49 mg/dL Critically high 0.70-1.30 [facility] Comment on above: Performed By: #### C MP, CMADM, BNP ####[facility] Dndrawwgxt1024[address] [place], [place] [address]Dr. Farhat Leal EGFR-AF SOMALI 55 mL/min/1.73m2 Critically low >=60 [facility] Comment on above: Performed By: #### C MP, CMADM, BNP ####[facility] Rhijhyfsuh2350[address] [place], [place] [address]Dr. Farhat Leal EGFR-NON AF SOMALI 46 mL/min/1.73m2 Critically low >=60 [facility] Comment on above: Performed By: #### C MP, CMADM, BNP ####[facility] Fcnxanpffp2493 [place] [address]Dr. Farhat Leal Globulin (S) [Mass/Vol] 4.3 g/dL Normal [facility] Comment on above: Performed By: #### C MP, CMADM, BNP ####[facility] Fyfuucqfmn5671 [place] [address]Dr. Farhat Leal Glucose [Mass/Vol] 213 mg/dL Critically high 74-106 [facility] Comment on above: Performed By: #### C MP, CMADM, BNP ####[facility] Ywwcuneqmo1585 [place] [address]Dr. Farhat Leal Potassium [Moles/Vol] 4.4 mmol/L Normal 3.5-5.1 [facility] Comment on above: Performed By: #### C MP, CMADM, BNP ####[facility] Ktywauemxj9994 [place] [address]Dr. Farhat Leal Protein [Mass/Vol] 5.9 g/dL Critically low 6.4-8.2 [facility] Comment on above: Performed By: #### C MP, CMADM, BNP ####[facility] Ajpektslzj5611[address] [place], [place] [address]Dr. Farhat Leal Sodium [Moles/Vol] 130 mmol/L Critically low 136-145 [facility] Comment on above: Performed By: #### C MP, CMADM, BNP ####[facility] Fgodhknium669[address] [place], [place] [address]Dr. Farhat Leal Urea nitrogen [Mass/Vol] 46.0 mg/dL Critically high 7.0-18.0 [facility] Comment on above: Performed By: #### C MP, CMADM, BNP ####[facility] Spsxxabwmh7175[address] [place], [place] [address]Dr. Farhat Leal Urea nitrogen/Creatinine [Mass ratio] 30.9 mg/mg Normal [facility] Comment on above: Performed By: #### C MP, CMADM, BNP ####[facility] Rrtnfevowu9880[address] [place], [place] [address]Dr. Farhat Leal PROTIMEon 11-23-2021 INR Coag (PPP) [Relative time] 2.55 {INR} Normal [facility] Comment on above: Performed By: #### P TT, PT ####[facility] Dcyqvtygon5364[address] [place], [place] [address]Dr. Farhat Leal INR GUIDELINES SEE BELOW Normal [facility] Comment on above: Result Comment: MALINA RED INR: 2.0 - 3.0 CONDITIONS NOT LISTED BELOW 2.5 - 3.5 FOR PROSTHETIC HEART VALVE REPLACEMENT 2.5 - 3.5 RECURRENT THROMBOSIS Performed By: #### P TT, PT ####[facility] Wivchubjxy2339[address] [place], [place] [address]Dr. Farhat Leal PT Coag (PPP) [Time] 25.9 s Critically high 9.0-11.6 [facility] Comment on above: Performed By: #### P TT, PT ####[facility] Nuhppqtenx4879 [place] [id number]. Farhat Leal PTTon 11-23-2021 aPTT Coag (Bld) [Time] 39.9 s Critically high 22.3-36. 2 [facility] Comment on above: Performed By: #### P TT, PT ####[facility] Qqmjwyuvba5784[address] [place], [place] [address]Dr. Farhat Leal XR CHEST 1 Von 11-23-2021 XR CHEST 1 V Normal [facility] XR HEEL RT 2Von 11-23-2021 XR HEEL RT 2V Normal [facility] XR FOOT RT MIN 3 VIEWSon XR FOOT RT MIN 3 VIEWS Normal [facility] US ARTERY LEG RTon US ARTERY LEG RT Normal [facility] CBC AUTO DIFFon 09-24-2021 BASO # 0.1 103/ul Normal 0.0-0.1 [facility] Comment on above: Performed By: #### C BC ####[facility] Tuthebkslt0166 [place] [address]Dr. Farhat Leal Basophils/100 WBC (Bld) 0.7 % Normal 0.2-2.0 [facility] Comment on above: Performed By: #### C BC ####[facility] Wezorvurmz5565[address] [place], [place] [address]Dr. Farhat Leal EO # 0.3 103/ul Normal 0.0-0.7 [facility] Comment on above: Performed By: #### C BC ####[facility] Njtwdukvzb2561 [place] [phone]. Farhat Leal Eosinophils/100 WBC (Bld) 3.9 % Normal 0.9-7.0 [facility] Comment on above: Performed By: #### C BC ####[facility] Jlnyanhori6353 [place] [phone]. Farhat Leal Erythrocyte distribution width (RBC) [Ratio] 12.6 % Normal 11.0-15.0 [facility] Comment on above: Performed By: #### C BC ####[facility] Mhtddemvhl4278 [place] [address]Dr. Farhat Leal Hematocrit (Bld) [Volume fraction] 38.9 % Critically low 42.0-54.0 [facility] Comment on above: Performed By: #### C BC ####[facility] Cjzqnfiohv8131 [place] [address]DrSkylar Joshilorri Elvis Hemoglobin (Bld) [Mass/Vol] 12.8 g/dL Critically low 14.0-18.0 [facility] Comment on above: Performed By: #### C BC ####[facility] Wyisqavzcc67[address] [place], [place] [address]DrSkylar Leal IG # 0.10 10e3/ul Critically high 0.00-0.03 [facility] Comment on above: Performed By: #### C BC ####[facility] Irkdenfslh7[address] [place], [place] [address]DrSkylar Leal IG % 1.2 % Critically high 0.0-0.5 [facility] Comment on above: Performed By: #### C BC ####[facility] Szanwegkvd5[address] [place], [place] [address]DrSkylar Madelynlorri Leal LYMPH # 2.1 103/ul Normal 1.2-3.8 [facility] Comment on above: Performed By: #### C BC ####[facility] Yqhrkbgufw9[address] [place], [place] [address]DrSkylar Leal Lymphocytes/100 WBC (Bld) 25.9 % Normal 20.5-60.0 [facility] Comment on above: Performed By: #### C BC ####[facility] [facility] Xenomopcxe[address] [place], [place] [address]DrSkylar Madelynlorri Leal MANUAL DIFF REQ NO Normal [facility] Comment on above: Performed By: #### C BC ####[facility] Mnezpxmiow119[address] [place], [place] [address]DrSkylar Leal MCH (RBC) [Entitic mass] 31.1 pg Normal 25.9-34.0 [facility] Comment on above: Performed By: #### C BC ####[facility] Ofmhvnmeyg4719 [place] [phone]. Farhat Elvis MCHC (RBC) [Mass/Vol] 32.9 g/dL Normal 29.9-35.2 [facility] Comment on above: Performed By: #### C BC ####[facility] Yugwxorplf6909 [place] [phone]. Madelynlorri Elvis MCV (RBC) [Entitic vol] 94.6 fL Critically high 80.0-94.0 [facility] Comment on above: Performed By: #### C BC ####[facility] Ciwhxrdefd6[address] [place] [address]DrSkylar Leal MONO # 1.2 103/ul Critically high 0.3-0.8 [facility] Comment on above: Performed By: #### C BC ####[facility] Oafbskrvbc3236[address] [place], [place] [address]Dr. Farhat Leal Monocytes/100 WBC (Bld) 14.1 % Critically high 1.7-12.0 [facility] Comment on above: Performed By: #### C BC ####[facility] Ciccotrrnw[address] [place], [place] [address]Dr. Farhat Leal NEUT # 4.4 103/ul Normal 1.4-6.5 [facility] Comment on above: Performed By: #### C BC ####[facility] Ybbbgtvwdn700[address] [place], [place] [address]Dr. Farhat Leal Neutrophils/100 WBC (Bld) 54.2 % Normal 43.0-75.0 [facility] Comment on above: Performed By: #### C BC ####[facility] Vtscnmteru[address] [place], [place] [id number] Leal Platelet mean volume (Bld) [Entitic vol] 9.9 fL Normal 9.5-13.5 [facility] Comment on above: Performed By: #### C BC ####[facility] Szolwagcon3[address] [place], [place] [address]Dr. Farhat Leal PLT 224 103/ul Normal 150-450 [facility] Comment on above: Performed By: #### C BC ####[facility] Inxesnyurn5876 [place] [phone]. Farhat Leal RBC 4.11 106/ul Critically low 4.70-6.10 [facility] Comment on above: Performed By: #### C BC ####[facility] Txjjinbtxd5267 [place] [phone]. Farhat Leal WBC 8.2 103/ul Normal 4.0-11.0 [facility] Comment on above: Performed By: #### C BC ####[facility] Fjgqjmansv3792 [place] [phone]. Farhat Leal PROF CHEM 8 (BAS METB)on Anion gap [Moles/Vol] 9.6 mmol/L Normal [facility] Comment on above: Performed By: #### B MP ####[facility] Omjsodjlct5019 [place] [address]Dr. Farhat Leal Calcium [Mass/Vol] 8.6 mg/dL Normal 8.5-10.1 [facility] Comment on above: Performed By: #### B MP ####[facility] Ikvmvangul4243 [place] [address]Dr. Farhat Leal Chloride [Moles/Vol] 94 mmol/L Critically low 98-107 [facility] Comment on above: Performed By: #### B MP ####[facility] Xtggwkfldf8679 [place] [phone]. Farhat Leal CO2 [Moles/Vol] 28.1 mmol/L Normal 21.0-32.[address] [facility] Comment on above: Performed By: #### B MP ####[facility] Wozldjyyqn9168 [place] [phone]. Farhat Leal Creatinine [Mass/Vol] 1.91 mg/dL Critically high 0.70-1.30 [facility] Comment on above: Performed By: #### B MP ####[facility] Mwfzfahfun3879 [place] [phone]. Farhat Leal EGFR-AF SOMALI 42 mL/min/1.73m2 Critically low >=60 [facility] Comment on above: Performed By: #### B MP ####[facility] Kfiqnoaryy9110[address] [place], [place] [address]Dr. Farhat Leal EGFR-NON AF SOMALI 34 mL/min/1.73m2 Critically low >=60 [facility] Comment on above: Performed By: #### B MP ####[facility] Pckllmgeji683[address] [place], [place] [address]Dr. Farhat Leal Glucose [Mass/Vol] 314 mg/dL Critically high 74-106 [facility] Comment on above: Performed By: #### B MP ####[facility] Xvgnuaxgzo5184[address] [place], [place] [address]Dr. Farhat Leal Potassium [Moles/Vol] 4.7 mmol/L Normal 3.5-5.1 [facility] Comment on above: Performed By: #### B MP ####[facility] Zrhbrdvncy17[address] [place], [place] [address]Dr. Farhat Leal Sodium [Moles/Vol] 127 mmol/L Critically low 136-145 [facility] Comment on above: Performed By: #### B MP ####[facility] Twabzksaje904965 [address] [place], [place] [address]Dr. Farhat Leal Urea nitrogen [Mass/Vol] 79.0 mg/dL Critically high 7.0-18.0 [facility] Comment on above: Result Comment: repe ated Performed By: #### B MP ####[facility] Rnyuaqgoaw0637[address] [place], [place] [address]Dr. Farhat Leal Urea nitrogen/Creatinine [Mass ratio] 41.4 mg/mg Normal [facility] Comment on above: Performed By: #### B MP ####[facility] Gexmqeguin2236[address] [place], [place] [address]Dr. Farhat Leal PTT HEPARIN MONITORon 2021 aPTT Coag (Bld) [Time] 42.7 s Normal 39.5-54.2 [facility] Comment on above: Performed By: #### P TTHEP ####[facility] Tnbztdyshc6110[address] [place], [place] [address]Dr. Madelynlorri Leal aPTT Coag (Bld) [Time] 56.7 s Critically high 39.5-54. 2 [facility] Comment on above: Performed By: #### P TTHEP ####[facility] Kamxagedwk9354[address] [place], [place] [address]Dr. Farhat Elvis CBC AUTO DIFFon 09-23-2021 BASO # 0.1 103/ul Normal 0.0-0.1 [facility] Comment on above: Performed By: #### C BC ####[facility] Dvipixypze7469[address] [place], [place] [address]Dr. Farhat Leal Basophils/100 WBC (Bld) 0.6 % Normal 0.2-2.0 [facility] Comment on above: Performed By: #### C BC ####[facility] Rwjljqwhij519[address] [place], [place] [address]Dr. Farhat Leal EO # 0.2 103/ul Normal 0.0-0.7 [facility] Comment on above: Performed By: #### C BC ####[facility] Gvhhxhkvlg8714[address] [place], [place] [address]Dr. Farhat Leal Eosinophils/100 WBC (Bld) 2.6 % Normal 0.9-7.0 [facility] Comment on above: Performed By: #### C BC ####[facility] Ppudjqjkoj9266[address] [place], [place] [address]Dr. Farhat Leal Erythrocyte distribution width (RBC) [Ratio] 12.4 % Normal 11.0-15.0 [facility] Comment on above: Performed By: #### C BC ####[facility] Uonoujigea1925[address] [place], [place] [address]Dr. Farhat Leal Hematocrit (Bld) [Volume fraction] 38.4 % Critically low 42.0-54.0 [facility] Comment on above: Performed By: #### C BC ####[facility] Ytwdcrvteu7928[address] [place], [place] [address]Dr. Farhat Leal Hemoglobin (Bld) [Mass/Vol] 12.8 g/dL Critically low 14.0-18.0 [facility] Comment on above: Performed By: #### C BC ####[facility] Qgflkeympu1549 [place] [phone]. Madelynlorri Leal IG # 0.06 10e3/ul Critically high 0.00-0.03 [facility] Comment on above: Performed By: #### C BC ####[facility] Aqvbjnpkwl9242 [place] [phone]. Farhat Leal IG % 0.8 % Critically high 0.0-0.5 [facility] Comment on above: Performed By: #### C BC ####[facility] Eanqlzqnte1407 [place] [address]Dr. Farhat Leal LYMPH # 1.5 103/ul Normal 1.2-3.8 [facility] Comment on above: Performed By: #### C BC ####[facility] Fdlmwznzdn6769 [place] [address]Dr. Farhat Leal Lymphocytes/100 WBC (Bld) 19.7 % Critically low 20.5-60.0 [facility] Comment on above: Performed By: #### C BC ####[facility] Thsfppoahj5121 [place] [address]Dr. Farhat Leal MANUAL DIFF REQ NO Normal [facility] Comment on above: Performed By: #### C BC ####[facility] Sazbmooofi4736 [place] [phone]. Farhat Leal MCH (RBC) [Entitic mass] 31.6 pg Normal 25.9-34.0 [facility] Comment on above: Performed By: #### C BC ####[facility] Mqwxgtjfco0566 [place] [phone]. Farhat Leal MCHC (RBC) [Mass/Vol] 33.3 g/dL Normal 29.9-35.2 [facility] Comment on above: Performed By: #### C BC ####[facility] Xxitviexhz0622 [place] [phone]. Farhat Leal MCV (RBC) [Entitic vol] 94.8 fL Critically high 80.0-94.0 [facility] Comment on above: Performed By: #### C BC ####[facility] Owbrelltop9118 [place] [address]Dr. Farhat Leal MONO # 1.0 103/ul Critically high 0.3-0.8 [facility] Comment on above: Performed By: #### C BC ####[facility] Fvmxeiypbw7689 [place] [phone]. Farhat Leal Monocytes/100 WBC (Bld) 13.0 % Critically high 1.7-12.0 [facility] Comment on above: Performed By: #### C BC ####[facility] Xibakzofir6861 [place] [phone]. Farhat Leal NEUT # 4.9 103/ul Normal 1.4-6.5 [facility] Comment on above: Performed By: #### C BC ####[facility] Ultbnwlqqt3450 [place] [address]Dr. Farhat Leal Neutrophils/100 WBC (Bld) 63.3 % Normal 43.0-75.0 [facility] Comment on above: Performed By: #### C BC ####[facility] Hfswdxqtyv7766 [place] [phone]. Farhat Leal Platelet mean volume (Bld) [Entitic vol] 10.7 fL Normal 9.5-13.5 [facility] Comment on above: Performed By: #### C BC ####[facility] Fcoxjmyvtj5967 [place] [phone]. Farhat Leal PLT 205 103/ul Normal 150-450 [facility] Comment on above: Performed By: #### C BC ####[facility] Vzalkhrtiq8384 [place] [phone]. Farhat Leal RBC 4.05 106/ul Critically low 4.70-6.10 [facility] Comment on above: Performed By: #### C BC ####[facility] Jgwiiguqis9488 [place] [phone]. Farhat Leal WBC 7.7 103/ul Normal 4.0-11.0 [facility] Comment on above: Performed By: #### C BC ####[facility] Dnudurjlcc1034 [place] [address]Dr. Farhat Leal PROF CHEM 8 (BAS METB)on Anion gap [Moles/Vol] 15.5 mmol/L Normal [facility] Comment on above: Performed By: #### B MP ####[facility] Evbijynqli1058 [place] [address]Dr. Farhat Leal Calcium [Mass/Vol] 9.1 mg/dL Normal 8.5-10.1 [facility] Comment on above: Performed By: #### B MP ####[facility] Dszsrygllj1787[address] [place], [place] [address]Dr. Farhat Leal Chloride [Moles/Vol] 92 mmol/L Critically low 98-107 [facility] Comment on above: Performed By: #### B MP ####[facility] Nwbsiynagk51[address] [place], [place] [address]Dr. Farhat Leal CO2 [Moles/Vol] 28.5 mmol/L Normal 21.0-32.0 [facility] Comment on above: Performed By: #### B MP ####[facility] Wlutnzmyzs871465 [address] [place], [place] [address]Dr. Farhat Leal Creatinine [Mass/Vol] 1.84 mg/dL Critically high 0.70-1.30 [facility] Comment on above: Performed By: #### B MP ####[facility] Xfqhujfbom3769[address] [place], [place] [address]Dr. Farhat Leal EGFR-AF SOMALI 44 mL/min/1.73m2 Critically low >=60 [facility] Comment on above: Performed By: #### B MP ####[facility] Emkxjkqmcw8635[address] [place], [place] [address]Dr. Farhat Leal EGFR-NON AF SOMALI 36 mL/min/1.73m2 Critically low >=60 [facility] Comment on above: Performed By: #### B MP ####[facility] Kasrhkmvka213865 [address] [place], [place] [address]Dr. Farhat Leal Glucose [Mass/Vol] 267 mg/dL Critically high 74-106 [facility] Comment on above: Performed By: #### B MP ####[facility] Ntfxkqphlx9949[address] [place], [place] [address]Dr. Farhat Leal Potassium [Moles/Vol] 5.0 mmol/L Normal 3.5-5.1 [facility] Comment on above: Performed By: #### B MP ####[facility] Godyszcgbx859165 [address] [place], [place] [address]Dr. Madelynlorri Elvis Sodium [Moles/Vol] 131 mmol/L Critically low 136-145 [facility] Comment on above: Performed By: #### B MP ####[facility] Cbojkqakro0594[address] [place], [place] [address]Dr. Madelynlorri Elvis Urea nitrogen [Mass/Vol] 76.0 mg/dL Critically high 7.0-18.0 [facility] Comment on above: Performed By: #### B MP ####[facility] Yaddbmnhmx424765 [address] [place], [place] [address]Dr. Madelynlorri Elvis Urea nitrogen/Creatinine [Mass ratio] 41.3 mg/mg Normal [facility] Comment on above: Performed By: #### B MP ####[facility] Jctxqfldpn7077[address] [place], [place] [address]Dr. Farhat Elvis PTT HEPARIN MONITORon 2021 aPTT Coag (Bld) [Time] 57.2 s Critically high 39.5-54. 2 [facility] Comment on above: Performed By: #### P TTHEP ####[facility] Dolkrqoxjw9968[address] [place], [place] [address]Dr. Madelynlorri Elvis aPTT Coag (Bld) [Time] 74.7 s Critically high 39.5-54. 2 [facility] Comment on above: Result Comment: repe ated Performed By: #### P TTHEP ####[facility] Qeiwhzuscp07[address] [place], [place] [address]Dr. Madelynlorri Elvis aPTT Coag (Bld) [Time] 45.5 s Normal 39.5-54.2 [facility] Comment on above: Performed By: #### P TTHEP ####[facility] Zstqtpwwxc1720 [place] [phone]. Farhat Leal CBC AUTO DIFFon 09-22-2021 BASO # 0.1 103/ul Normal 0.0-0.1 [facility] Comment on above: Performed By: #### C BC ####[facility] Stlpmjmuop5814 [place] [phone]. Madelynlorri Leal Basophils/100 WBC (Bld) 0.7 % Normal 0.2-2.0 [facility] Comment on above: Performed By: #### C BC ####[facility] Fncnamrctc9136[address] [place], [place] [address]Dr. Farhat Elvis EO # 0.3 103/ul Normal 0.0-0.7 [facility] Comment on above: Performed By: #### C BC ####[facility] Odumpgyqzv3569[address] [place], [place] [address]Dr. Madelynlorri Leal Eosinophils/100 WBC (Bld) 3.2 % Normal 0.9-7.0 [facility] Comment on above: Performed By: #### C BC ####[facility] Rnaszrxyll8909[address] [place], [place] [address]Dr. Farhat Leal Erythrocyte distribution width (RBC) [Ratio] 12.5 % Normal 11.0-15.0 [facility] Comment on above: Performed By: #### C BC ####[facility] Biacfksrgi9106[address] [place], [place] [address]Dr. Farhat Leal Hematocrit (Bld) [Volume fraction] 40.5 % Critically low 42.0-54.0 [facility] Comment on above: Performed By: #### C BC ####[facility] Rxoqvcyhzh394[address] [place], [place] [address]Dr. Farhat Leal Hemoglobin (Bld) [Mass/Vol] 13.4 g/dL Critically low 14.0-18.0 [facility] Comment on above: Performed By: #### C BC ####[facility] Gbukhrspvf3549 [place] [address]Dr. Farhat Leal IG # 0.11 10e3/ul Critically high 0.00-0.03 [facility] Comment on above: Performed By: #### C BC ####[facility] Jnokbfxjep2715 [place] [phone]. Farhat Leal IG % 1.3 % Critically high 0.0-0.5 [facility] Comment on above: Performed By: #### C BC ####[facility] Kjrkgtnovj0574 [place] [address]Dr. Farhat Leal LYMPH # 1.7 103/ul Normal 1.2-3.8 [facility] Comment on above: Performed By: #### C BC ####[facility] Xfgytpvlud5135 [place] [phone]. Farhat Leal Lymphocytes/100 WBC (Bld) 19.6 % Critically low 20.5-60.0 [facility] Comment on above: Performed By: #### C BC ####[facility] Bywdnsslog4809 [place] [address]Dr. Farhat Leal MANUAL DIFF REQ NO Normal [facility] Comment on above: Performed By: #### C BC ####[facility] Vqsslxeogf9656 [place] [phone]. Farhat Leal MCH (RBC) [Entitic mass] 31.1 pg Normal 25.9-34.0 [facility] Comment on above: Performed By: #### C BC ####[facility] Jxnkgmcitv8200 [place] [phone]. Farhat Leal MCHC (RBC) [Mass/Vol] 33.1 g/dL Normal 29.9-35.2 [facility] Comment on above: Performed By: #### C BC ####[facility] Jangobtqfz2582 [place] [phone]. Farhat Leal MCV (RBC) [Entitic vol] 94.0 fL Normal 80.0-94.0 [facility] Comment on above: Performed By: #### C BC ####[facility] Veouutmgym0065 [place] [address]Dr. Farhat Leal MONO # 1.1 103/ul Critically high 0.3-0.8 [facility] Comment on above: Performed By: #### C BC ####[facility] Xkhmoakbqr6933 [place] [address]Dr. Farhat Leal Monocytes/100 WBC (Bld) 12.7 % Critically high 1.7-12.0 [facility] Comment on above: Performed By: #### C BC ####[facility] Kqstatqydf0832 [place] [phone]. Farhat Leal NEUT # 5.3 103/ul Normal 1.4-6.5 [facility] Comment on above: Performed By: #### C BC ####[facility] Xznospobud2344 [place] [address]Dr. Farhat Leal Neutrophils/100 WBC (Bld) 62.5 % Normal 43.0-75.0 [facility] Comment on above: Performed By: #### C BC ####[facility] Keyypdnoin3092 [place] [address]DrSkylar Farhat Leal Platelet mean volume (Bld) [Entitic vol] 10.1 fL Normal 9.5-13.5 [facility] Comment on above: Performed By: #### C BC ####[facility] Msjbczndlr4313 [place] [phone]. Farhat Leal PLT 220 103/ul Normal 150-450 [facility] Comment on above: Performed By: #### C BC ####[facility] Vciybpyuch5428 [place] [address]Dr. Farhat Leal RBC 4.31 106/ul Critically low 4.70-6.10 [facility] Comment on above: Performed By: #### C BC ####[facility] Fteyerbblp6052 [place] [phone]. Farhat Leal WBC 8.4 103/ul Normal 4.0-11.0 [facility] Comment on above: Performed By: #### C BC ####[facility] Lnwkdevaty1002 [place] [address]DrSkylar Madelynlorri Leal PROF CHEM 8 (BAS METB)on Anion gap [Moles/Vol] 15.5 mmol/L Normal [facility] Comment on above: Performed By: #### B MP ####[facility] Uxlmxtdgao3884 [place] [address]Dr. Farhat Leal Calcium [Mass/Vol] 8.9 mg/dL Normal 8.5-10.1 [facility] Comment on above: Performed By: #### B MP ####[facility] Lpwyenhiym2923 [place] [phone]. Madelynlorri Elvis Chloride [Moles/Vol] 92 mmol/L Critically low 98-107 [facility] Comment on above: Performed By: #### B MP ####[facility] Janpazknpk3355[address] [place], [place] [address]Dr. Madelynlorri Elvis CO2 [Moles/Vol] 25.7 mmol/L Normal 21.0-32.0 [facility] Comment on above: Performed By: #### B MP ####[facility] Qdvraqguas501365 [address] [place], [place] [address]Dr. Madelynlorri Elvis Creatinine [Mass/Vol] 1.85 mg/dL Critically high 0.70-1.30 [facility] Comment on above: Performed By: #### B MP ####[facility] Shzdarionm0828[address] [place], [place] [address]Dr. Madelynlorri Elvis EGFR-AF SOMALI 43 mL/min/1.73m2 Critically low >=60 [facility] Comment on above: Performed By: #### B MP ####[facility] Tdwndaoajq6695[address] [place], [place] [address]Dr. Madelynlorri Elvis EGFR-NON AF SOMALI 36 mL/min/1.73m2 Critically low >=60 [facility] Comment on above: Performed By: #### B MP ####[facility] Mufepyylgi4627[address] [place], [place] [address]Dr. Farhat Leal Glucose [Mass/Vol] 410 mg/dL Critically high 74-106 [facility] Comment on above: Performed By: #### B MP ####[facility] Vvihbduznm27[address] [place], [place] [address]Dr. Farhat Leal Potassium [Moles/Vol] 5.2 mmol/L Critically high 3.5-5.1 [facility] Comment on above: Performed By: #### B MP ####[facility] Yaaxcilqpj4475[address] [place], [place] [address]Dr. Farhat Elvis Sodium [Moles/Vol] 128 mmol/L Critically low 136-145 [facility] Comment on above: Performed By: #### B MP ####[facility] Qogrqsdoqv008165 [address] [place], [place] [address]Dr. Farhat Elvis Urea nitrogen [Mass/Vol] 75.0 mg/dL Critically high 7.0-18.0 [facility] Comment on above: Performed By: #### B MP ####[facility] Ivwecsyuwy4105[address] [place], [place] [address]Dr. Madelynlorri Elvis Urea nitrogen/Creatinine [Mass ratio] 40.5 mg/mg Normal [facility] Comment on above: Performed By: #### B MP ####[facility] Etfxwlwnxn764[address] [place], [place] [address]Dr. Farhat Elvis PTT HEPARIN MONITORon 2021 aPTT Coag (Bld) [Time] 51.2 s Normal 39.5-54.2 [facility] Comment on above: Performed By: #### P TTHEP ####[facility] Cfgsvwhlfc1669[address] [place], [place] [address]Dr. Farhat Elvis aPTT Coag (Bld) [Time] 55.6 s Critically high 39.5-54. 2 [facility] Comment on above: Performed By: #### P TTHEP ####[facility] Uknpsvqjjn3369[address] [place], [place] [address]Dr. Farhat Elvis aPTT Coag (Bld) [Time] 46.1 s Normal 39.5-54.2 [facility] Comment on above: Performed By: #### P TTHEP ####[facility] Yfifzpyvyt6764[address] [place], [place] [address]Dr. Madelynlorri Elvis aPTT Coag (Bld) [Time] 53.8 s Normal 39.5-54.2 [facility] Comment on above: Performed By: #### P TTHEP ####[facility] Wisnsguavh4684 [place] [phone]. Farhat Leal CBC AUTO DIFFon 09-21-2021 BASO # 0.1 103/ul Normal 0.0-0.1 [facility] Comment on above: Performed By: #### C BC ####[facility] Eaeccutyhs2218 [place] [phone]. Farhat Leal Basophils/100 WBC (Bld) 0.8 % Normal 0.2-2.0 [facility] Comment on above: Performed By: #### C BC ####[facility] Pjxpiwvksg6810 [place] [address]Dr. Farhat Leal EO # 0.4 103/ul Normal 0.0-0.7 [facility] Comment on above: Performed By: #### C BC ####[facility] Carrtlxeet8299[address] [place], [place] [address]Dr. Farhat Elvis Eosinophils/100 WBC (Bld) 4.3 % Normal 0.9-7.0 [facility] Comment on above: Performed By: #### C BC ####[facility] Bgvrjppdby15[address] [place], [place] [address]Dr. Farhat Leal Erythrocyte distribution width (RBC) [Ratio] 12.5 % Normal 11.0-15.0 [facility] Comment on above: Performed By: #### C BC ####[facility] Zurbmafqvs535[address] [place], [place] [address]Dr. Farhat Leal Hematocrit (Bld) [Volume fraction] 40.8 % Critically low 42.0-54.0 [facility] Comment on above: Performed By: #### C BC ####[facility] Jrzqgjicnk422[address] [place], [place] [address]Dr. Farhat Leal Hemoglobin (Bld) [Mass/Vol] 13.5 g/dL Critically low 14.0-18.0 [facility] Comment on above: Performed By: #### C BC ####[facility] Qffmimesry785[address] [place], [place] [address]Dr. Farhat Leal IG # 0.10 10e3/ul Critically high 0.00-0.03 [facility] Comment on above: Performed By: #### C BC ####[facility] Ryzfhnojsw4834 [place] [phone] Farhat Elvis IG % 1.2 % Critically high 0.0-0.5 [facility] Comment on above: Performed By: #### C BC ####[facility] Wdedlodqeb5499 [place] [phone] Farhat Elvis LYMPH # 1.3 103/ul Normal 1.2-3.8 [facility] Comment on above: Performed By: #### C BC ####[facility] Ahchceigzq5363 [place] [phone] Madelynlorri Leal Lymphocytes/100 WBC (Bld) 15.4 % Critically low 20.5-60.0 [facility] Comment on above: Performed By: #### C BC ####[facility] Dvblusssnk6985 [place] [phone] Madelynlorri Leal MANUAL DIFF REQ NO Normal [facility] Comment on above: Performed By: #### C BC ####[facility] Oxorvgssnf6226 [place] [phone] Farhat Elvis MCH (RBC) [Entitic mass] 31.0 pg Normal 25.9-34.0 [facility] Comment on above: Performed By: #### C BC ####[facility] Neziyvwndj6676 [place] [phone] Farhat Elvis MCHC (RBC) [Mass/Vol] 33.1 g/dL Normal 29.9-35.2 [facility] Comment on above: Performed By: #### C BC ####[facility] Rpebjfnfsn2039 [place] [phone] Farhat Elvis MCV (RBC) [Entitic vol] 93.8 fL Normal 80.0-94.0 [facility] Comment on above: Performed By: #### C BC ####[facility] Ttkegqncxa3744 [place] [phone] Leal MONO # 1.2 103/ul Critically high 0.3-0.8 [facility] Comment on above: Performed By: #### C BC ####[facility] Surxfinrjy8092 [place] [phone]. Farhat Leal Monocytes/100 WBC (Bld) 13.6 % Critically high 1.7-12.0 [facility] Comment on above: Performed By: #### C BC ####[facility] Tnnpxyzhhg7063 [place] [phone]. Farhat Leal NEUT # 5.5 103/ul Normal 1.4-6.5 [facility] Comment on above: Performed By: #### C BC ####[facility] Kvbkdxldat0630 [place] [address]Dr. Farhat Leal Neutrophils/100 WBC (Bld) 64.7 % Normal 43.0-75.0 [facility] Comment on above: Performed By: #### C BC ####[facility] Edpkwkwufr2571 [place] [address]Dr. Farhat Leal Platelet mean volume (Bld) [Entitic vol] 9.8 fL Normal 9.5-13.5 [facility] Comment on above: Performed By: #### C BC ####[facility] Vcappzaxwg4077 [place] [address]Dr. Farhat Leal PLT 206 103/ul Normal 150-450 [facility] Comment on above: Performed By: #### C BC ####[facility] Hfywepezal0256 [place] [phone]. Farhat Leal RBC 4.35 106/ul Critically low 4.70-6.10 [facility] Comment on above: Performed By: #### C BC ####[facility] Ffsxakexxb5626 [place] [phone]. Frahat Leal WBC 8.4 103/ul Normal 4.0-11.0 [facility] Comment on above: Performed By: #### C BC ####[facility] Bwvemwvtao0289 [place] [phone] Farhat Elvis PROF CHEM 8 (BAS METB)on Anion gap [Moles/Vol] 12.3 mmol/L Normal [facility] Comment on above: Performed By: #### B MP ####[facility] Vttsyfihte9166 [place] [address]Dr. Farhat Leal Calcium [Mass/Vol] 8.6 mg/dL Normal 8.5-10.1 [facility] Comment on above: Performed By: #### B MP ####[facility] Bulhayvenc6064[address] [place], [place] [address]Dr. Madelynlorri Elvis Chloride [Moles/Vol] 94 mmol/L Critically low 98-107 [facility] Comment on above: Performed By: #### B MP ####[facility] Epgovqxfao257[address] [place], [place] [address]Dr. Madelynlorri Elvis CO2 [Moles/Vol] 30.8 mmol/L Normal 21.0-32.0 [facility] Comment on above: Performed By: #### B MP ####[facility] Jceozayfpp7644[address] [place], [place] [address]Dr. Madelynlorri Elvis Creatinine [Mass/Vol] 1.99 mg/dL Critically high 0.70-1.30 [facility] Comment on above: Performed By: #### B MP ####[facility] Qoacrlcoer4520[address] [place], [place] [address]Dr. Madelynlorri Elvis EGFR-AF SOMALI 40 mL/min/1.73m2 Critically low >=60 [facility] Comment on above: Performed By: #### B MP ####[facility] Gqlrvsubmj9414[address] [place], [place] [address]Dr. Madelynlorri Elvis EGFR-NON AF SOMALI 33 mL/min/1.73m2 Critically low >=60 [facility] Comment on above: Performed By: #### B MP ####[facility] Bpncnxvxdb844365 [address] [place], [place] [address]Dr. Farhat Leal Glucose [Mass/Vol] 264 mg/dL Critically high 74-106 [facility] Comment on above: Performed By: #### B MP ####[facility] Kyztcrlkul858[address] [place], [place] [address]Dr. Farhat Leal Potassium [Moles/Vol] 5.1 mmol/L Normal 3.5-5.1 [facility] Comment on above: Performed By: #### B MP ####[facility] Aracmncrqe9201[address] [place], [place] [address]Dr. Madelynlorri Elvis Sodium [Moles/Vol] 132 mmol/L Critically low 136-145 [facility] Comment on above: Performed By: #### B MP ####[facility] Jxacxuhhlp224365 [address] [place], [place] [address]Dr. Madelynlorri Elvis Urea nitrogen [Mass/Vol] 72.0 mg/dL Critically high 7.0-18.0 [facility] Comment on above: Performed By: #### B MP ####[facility] Xeglgrgnph7908[address] [place], [place] [address]Dr. Farhat Leal Urea nitrogen/Creatinine [Mass ratio] 36.2 mg/mg Normal [facility] Comment on above: Performed By: #### B MP ####[facility] Edmvobvmkn7935[address] [place], [place] [address]Dr. Farhat Leal PTT HEPARIN MONITORon 2021 aPTT Coag (Bld) [Time] 45.3 s Normal 39.5-54.2 [facility] Comment on above: Performed By: #### P TTHEP ####[facility] Gmbjfxjhpl978665 [address] [place], [place] [address]Dr. Madelynlorri Elvis aPTT Coag (Bld) [Time] 68.0 s Critically high 39.5-54. 2 [facility] Comment on above: Performed By: #### P TTHEP ####[facility] Kabatnezzj420365 [address] [place], [place] [address]Dr. Madelynlorri Elvis aPTT Coag (Bld) [Time] 69.4 s Critically high 39.5-54. 2 [facility] Comment on above: Performed By: #### P TTHEP ####[facility] Ujlvxqolzw1223[address] [place], [place] [address]Dr. Farhat Leal aPTT Coag (Bld) [Time] 53.5 s Normal 39.5-54.2 [facility] Comment on above: Performed By: #### P TTHEP ####[facility] Wnounnntqm9673 [place] [address]Dr. Farhat Leal aPTT Coag (Bld) [Time] 126.9 s Critically high 39.5-54. 2 [facility] Comment on above: Performed By: #### P TTHEP ####[facility] Tqzclxjexq5767[address] [place], [place] [address]Dr. Farhat Elvis CBC AUTO DIFFon 09-20-2021 BASO # 0.1 103/ul Normal 0.0-0.1 [facility] Comment on above: Performed By: #### C BC ####[facility] Elanbuyqsn3394[address] [place], [place] [address]Dr. Farhat Leal Basophils/100 WBC (Bld) 0.7 % Normal 0.2-2.0 [facility] Comment on above: Performed By: #### C BC ####[facility] Ptjsnpskyt5269[address] [place], [place] [address]Dr. Farhat Leal EO # 0.2 103/ul Normal 0.0-0.7 [facility] Comment on above: Performed By: #### C BC ####[facility] Klaidjptiq7813[address] [place], [place] [address]Dr. Madelynlorri Leal Eosinophils/100 WBC (Bld) 3.2 % Normal 0.9-7.0 [facility] Comment on above: Performed By: #### C BC ####[facility] Rpxxcnjilk130[address] [place], [place] [address]Dr. Madelynlorri Leal Erythrocyte distribution width (RBC) [Ratio] 12.4 % Normal 11.0-15.0 [facility] Comment on above: Performed By: #### C BC ####[facility] Vvahtvxbme7332[address] [place], [place] [address]Dr. Farhat Leal Hematocrit (Bld) [Volume fraction] 40.1 % Critically low 42.0-54.0 [facility] Comment on above: Performed By: #### C BC ####[facility] Qdtelpqaun1544[address] [place], [place] [address]Dr. Madelynlorri Leal Hemoglobin (Bld) [Mass/Vol] 13.4 g/dL Critically low 14.0-18.0 [facility] Comment on above: Performed By: #### C BC ####[facility] Yocotoppdn4429 [place] [address]DrSkylar Leal IG # 0.08 10e3/ul Critically high 0.00-0.03 [facility] Comment on above: Performed By: #### C BC ####[facility] Fkknmaztsf4310 [place] [address]DrSkylar Leal IG % 1.1 % Critically high 0.0-0.5 [facility] Comment on above: Performed By: #### C BC ####[facility] Zgxdckwoig6606 [place] [address]DrSkylar Leal LYMPH # 1.3 103/ul Normal 1.2-3.8 [facility] Comment on above: Performed By: #### C BC ####[facility] Qqekhjwxbf2420 [place] [address]DrSkylar Leal Lymphocytes/100 WBC (Bld) 17.3 % Critically low 20.5-60.0 [facility] Comment on above: Performed By: #### C BC ####[facility] Qjgsllajoh2672 [place] [address]DrSkylar Leal MANUAL DIFF REQ NO Normal [facility] Comment on above: Performed By: #### C BC ####[facility] Fvapppxczn5340 [place] [address]DrSkylar Leal MCH (RBC) [Entitic mass] 31.2 pg Normal 25.9-34.0 [facility] Comment on above: Performed By: #### C BC ####[facility] Rjsphzhzgn4272 [place] [address]DrSkylar Leal MCHC (RBC) [Mass/Vol] 33.4 g/dL Normal 29.9-35.2 [facility] Comment on above: Performed By: #### C BC ####[facility] Yyvryqkxyf1966 [place] [address]DrSkylar Leal MCV (RBC) [Entitic vol] 93.3 fL Normal 80.0-94.0 [facility] Comment on above: Performed By: #### C BC ####[facility] Lsadauzvcs4987 [place] [address]DrSkylar Farhat Leal MONO # 0.9 103/ul Critically high 0.3-0.8 [facility] Comment on above: Performed By: #### C BC ####[facility] Acvzpyzhjy6891 [place] [address]DrSkylar Madelynlorri Leal Monocytes/100 WBC (Bld) 12.4 % Critically high 1.7-12.0 [facility] Comment on above: Performed By: #### C BC ####[facility] Ixfenuvoug6970[address] [place], [place] [address]Dr. Farhat Leal NEUT # 4.7 103/ul Normal 1.4-6.5 [facility] Comment on above: Performed By: #### C BC ####[facility] Pswpfwtyng0655[address] [place], [place] [address]Dr. Farhat Leal Neutrophils/100 WBC (Bld) 65.3 % Normal 43.0-75.0 [facility] Comment on above: Performed By: #### C BC ####[facility] Fwvroulwuz3329[address] [place], [place] [address]DrSkylar Farhat Elvis Platelet mean volume (Bld) [Entitic vol] 9.9 fL Normal 9.5-13.5 [facility] Comment on above: Performed By: #### C BC ####[facility] Wiybokgmue7047 [place] [address]Dr. Farhat Elvis PLT 180 103/ul Normal 150-450 [facility] Comment on above: Performed By: #### C BC ####[facility] Yxdbqesfvs4579 [place] [phone] Leal RBC 4.30 106/ul Critically low 4.70-6.10 [facility] Comment on above: Performed By: #### C BC ####[facility] Sggkksljdk5854 [place] [phone] Leal WBC 7.2 103/ul Normal 4.0-11.0 [facility] Comment on above: Performed By: #### C BC ####[facility] Taryhygwct27[address] [place], [place] [address]Dr. Madelynlorri Leal PTT HEPARIN MONITORon 2021 aPTT Coag (Bld) [Time] 26.7 s Critically low 39.5-54.2 [facility] Comment on above: Performed By: #### P TTHEP ####[facility] Ztslhpcces9916[address] [place], [place] [address]Dr. Madelynlorri Leal aPTT Coag (Bld) [Time] 121.0 s Critically high 39.5-54. 2 [facility] Comment on above: Performed By: #### P TTHEP ####[facility] Teamrunqcq845865 [address] [place], [place] [address]Dr. Farhat Leal aPTT Coag (Bld) [Time] 27.6 s Critically low 39.5-54.2 [facility] Comment on above: Performed By: #### P TTHEP ####[facility] Wdhauiabbz6240[address] [place], [place] [address]Dr. Madelynlorri Leal aPTT Coag (Bld) [Time] 139.0 s Critically high 39.5-54. 2 [facility] Comment on above: Performed By: #### P TTHEP ####[facility] Zmkbeecwdg9575[address] [place], [place] [address]Dr. Farhat Leal CBC AUTO DIFFon 09-19-2021 BASO # 0.0 103/ul Normal 0.0-0.1 [facility] Comment on above: Performed By: #### C BC ####[facility] Ldckdoayel3429[address] [place], [place] [address]Dr. Farhat Leal Basophils/100 WBC (Bld) 0.5 % Normal 0.2-2.0 [facility] Comment on above: Performed By: #### C BC ####[facility] Mhqwitidyi6370[address] [place], [place] [address]Dr. Farhat Leal EO # 0.2 103/ul Normal 0.0-0.7 [facility] Comment on above: Performed By: #### C BC ####[facility] Lmkwgutqfc0023 [place] [phone]. Farhat Leal Eosinophils/100 WBC (Bld) 2.6 % Normal 0.9-7.0 [facility] Comment on above: Performed By: #### C BC ####[facility] Utbtamzyaz1865 [place] [phone]. Farhat Leal Erythrocyte distribution width (RBC) [Ratio] 12.5 % Normal 11.0-15.0 [facility] Comment on above: Performed By: #### C BC ####[facility] Isfbhkjgvh1200 [place] [address]Dr. Farhat Leal Hematocrit (Bld) [Volume fraction] 39.2 % Critically low 42.0-54.0 [facility] Comment on above: Performed By: #### C BC ####[facility] Vdwozurjuf3089[address] [place], [place] [address]Dr. Farhat Leal Hemoglobin (Bld) [Mass/Vol] 13.3 g/dL Critically low 14.0-18.0 [facility] Comment on above: Performed By: #### C BC ####[facility] Tdjhdpclvs0438[address] [place], [place] [address]Dr. Farhat Leal IG # 0.08 10e3/ul Critically high 0.00-0.03 [facility] Comment on above: Performed By: #### C BC ####[facility] Xvvbnelhgh9965 [place] [address]Dr. Farhat Leal IG % 0.9 % Critically high 0.0-0.5 [facility] Comment on above: Performed By: #### C BC ####[facility] Mrlceqwoyj8825 [place] [address]Dr. Farhat Leal LYMPH # 1.5 103/ul Normal 1.2-3.8 [facility] Comment on above: Performed By: #### C BC ####[facility] Pywwgeftdc4029[address] [place], [place] [address]Dr. Farhat Leal Lymphocytes/100 WBC (Bld) 17.2 % Critically low 20.5-60.0 [facility] Comment on above: Performed By: #### C BC ####[facility] Wbhdrbfrgp5626 [place] [phone]. Farhat Leal MANUAL DIFF REQ NO Normal [facility] Comment on above: Performed By: #### C BC ####[facility] Edhakbzaez7464 [place] [phone]. Farhat Leal MCH (RBC) [Entitic mass] 31.7 pg Normal 25.9-34.0 [facility] Comment on above: Performed By: #### C BC ####[facility] Vdkxbdpuma3958 [place] [phone]. Farhat Leal MCHC (RBC) [Mass/Vol] 33.9 g/dL Normal 29.9-35.2 [facility] Comment on above: Performed By: #### C BC ####[facility] Ayqcbklfvc8765[address] [place], [place] [address]Dr. Farhat Leal MCV (RBC) [Entitic vol] 93.3 fL Normal 80.0-94.0 [facility] Comment on above: Performed By: #### C BC ####[facility] Olpyttoivo0856[address] [place], [place] [address]Dr. Farhat Leal MONO # 1.2 103/ul Critically high 0.3-0.8 [facility] Comment on above: Performed By: #### C BC ####[facility] Jnkbwrauno2392 [place] [address]Dr. Farhat Leal Monocytes/100 WBC (Bld) 13.7 % Critically high 1.7-12.0 [facility] Comment on above: Performed By: #### C BC ####[facility] Eosdubpdkq7318 [place] [address]Dr. Farhat Leal NEUT # 5.5 103/ul Normal 1.4-6.5 [facility] Comment on above: Performed By: #### C BC ####[facility] Ryphmolnqk5038 [place] [address]Dr. Farhat Leal Neutrophils/100 WBC (Bld) 65.1 % Normal 43.0-75.0 [facility] Comment on above: Performed By: #### C BC ####[facility] Putjhqjhmq6055 [place] [address]Dr. Farhat Leal Platelet mean volume (Bld) [Entitic vol] 9.6 fL Normal 9.5-13.5 [facility] Comment on above: Performed By: #### C BC ####[facility] Paklzdvqtz9161 [place] [address]Dr. Farhat Leal PLT 163 103/ul Normal 150-450 [facility] Comment on above: Performed By: #### C BC ####[facility] Lazfsfehbm8062 [place] [address]Dr. Farhat Leal RBC 4.20 106/ul Critically low 4.70-6.10 [facility] Comment on above: Performed By: #### C BC ####[facility] Cfxqfogkas775[address] [place], [place] [address]Dr. Farhat Leal WBC 8.4 103/ul Normal 4.0-11.0 [facility] Comment on above: Performed By: #### C BC ####[facility] Hsdxzokhpb3827[address] [place], [place] [address]Dr. Farhat Leal POINT OF CARE GLUCOSEon Glucose [Mass/Vol] 300 mg/dL Critically high 74-106 [facility] Comment on above: Performed By: #### P OCGLUC ####[facility] Kdtctsasuf1047[address] [place], [place] [address]Dr. Farhat Leal POTASSIUMon 09-19-2021 Potassium [Moles/Vol] 4.9 mmol/L Normal 3.5-5.1 [facility] Comment on above: Performed By: #### K ####[facility] Pdcxfuzimw2328[address] [place], [place] [address]DrSkylar Farhat Leal PTT HEPARIN MONITORon 2021 aPTT Coag (Bld) [Time] 23.4 s Critically low 39.5-54.2 [facility] Comment on above: Result Comment: repe ated Performed By: #### P TTHEP ####[facility] Veibxrgpni7645[address] [place], [place] [address]Dr. Farhat Elvis aPTT Coag (Bld) [Time] 101.2 s Critically high 39.5-54. 2 [facility] Comment on above: Performed By: #### P TTHEP ####[facility] Bovykknmqy7966[address] [place], [place] [address]Dr. Farhat Elvis aPTT Coag (Bld) [Time] 81.0 s Critically high 39.5-54. 2 [facility] Comment on above: Result Comment: Test Repeated. Critical Value Verified Performed By: #### P TTHEP ####[facility] Djilrzchqd6254[address] [place], [place] [address]Dr. Madelynlorri Leal CBC AUTO DIFFon 09-18-2021 BASO # 0.0 103/ul Normal 0.0-0.1 [facility] Comment on above: Performed By: #### C BC ####[facility] Qtlwuzaadx0424[address] [place], [place] [address]Dr. Farhat Leal Basophils/100 WBC (Bld) 0.4 % Normal 0.2-2.0 [facility] Comment on above: Performed By: #### C BC ####[facility] Uvnuwuzlsz1478[address] [place], [place] [address]DrSkylar Leal EO # 0.1 103/ul Normal 0.0-0.7 [facility] Comment on above: Performed By: #### C BC ####[facility] Ayeaitwdcr8038[address] [place], [place] [address]Dr. Farhat Leal Eosinophils/100 WBC (Bld) 0.8 % Critically low 0.9-7.0 [facility] Comment on above: Performed By: #### C BC ####[facility] Qchspxfgmm4478[address] [place], [place] [address]Dr. Farhat Leal Erythrocyte distribution width (RBC) [Ratio] 12.4 % Normal 11.0-15.0 [facility] Comment on above: Performed By: #### C BC ####[facility] Hrnkfrxiwb1474[address] [place], [place] [address]DrSkylar Leal Hematocrit (Bld) [Volume fraction] 41.7 % Critically low 42.0-54.0 [facility] Comment on above: Performed By: #### C BC ####[facility] Ijwicqxggg9630 [place] [address]DrSkylar Leal Hemoglobin (Bld) [Mass/Vol] 14.1 g/dL Normal 14.0-18.0 [facility] Comment on above: Performed By: #### C BC ####[facility] Ptfliaqeup5212 [place] [address]DrSkylar Leal IG # 0.06 10e3/ul Critically high 0.00-0.03 [facility] Comment on above: Performed By: #### C BC ####[facility] Adjpyryunp3830 [place] [address]DrSkylar Leal IG % 0.6 % Critically high 0.0-0.5 [facility] Comment on above: Performed By: #### C BC ####[facility] Htwafqprtj3432[address] [place], [place] [address]DrSkylar Leal LYMPH # 0.6 103/ul Critically low 1.2-3.8 [facility] Comment on above: Performed By: #### C BC ####[facility] Dkqatzmagu7210[address] [place], [place] [address]DrSkylar Leal Lymphocytes/100 WBC (Bld) 6.5 % Critically low 20.5-60.0 [facility] Comment on above: Performed By: #### C BC ####[facility] Bxdzwjuibg8474 [place] [address]DrSkylar Leal MANUAL DIFF REQ NO Normal [facility] Comment on above: Performed By: #### C BC ####[facility] Bcrihcikxl5377 [place] [address]DrSkylar Leal MCH (RBC) [Entitic mass] 31.6 pg Normal 25.9-34.0 [facility] Comment on above: Performed By: #### C BC ####[facility] Ozzruwtcet5255 [place] [address]DrSkylar Leal MCHC (RBC) [Mass/Vol] 33.8 g/dL Normal 29.9-35.2 [facility] Comment on above: Performed By: #### C BC ####[facility] Onngjwllah3729 [place] [address]DrSkylar Leal MCV (RBC) [Entitic vol] 93.5 fL Normal 80.0-94.0 [facility] Comment on above: Performed By: #### C BC ####[facility] Tracswkeid1049 [place] [address]DrSkylar Leal MONO # 1.0 103/ul Critically high 0.3-0.8 [facility] Comment on above: Performed By: #### C BC ####[facility] Mazzgfoeww6920[address] [place], [place] [address]DrSkylar Leal Monocytes/100 WBC (Bld) 10.4 % Normal 1.7-12.0 [facility] Comment on above: Performed By: #### C BC ####[facility] Zbphfygtdj4260[address] [place], [place] [address]Dr. Farhat Leal NEUT # 7.8 103/ul Critically high 1.4-6.5 [facility] Comment on above: Performed By: #### C BC ####[facility] Premensbnc6874[address] [place], [place] [address]DrSkylar Leal Neutrophils/100 WBC (Bld) 81.3 % Critically high 43.0-75.0 [facility] Comment on above: Performed By: #### C BC ####[facility] Sgourwcsfg2596[address] [place], [place] [address]Dr. Farhat Leal Platelet mean volume (Bld) [Entitic vol] 9.9 fL Normal 9.5-13.5 [facility] Comment on above: Performed By: #### C BC ####[facility] Ncrnatznhh[address] [place], [place] [id number]. Farhat Leal PLT 169 103/ul Normal 150-450 [facility] Comment on above: Performed By: #### C BC ####[facility] Ugqbpxbyjx206[address] [address] [place], [place] [id number] Leal RBC 4.46 106/ul Critically low 4.70-6.10 [facility] Comment on above: Performed By: #### C BC ####[facility] [address] [place] [address]Dr. Farhat Leal WBC 9.6 103/ul Normal 4.0-11.0 [facility] Comment on above: Performed By: #### C BC ####[facility] Femzvkbwmq25[address] [place] [address]Dr. Farhat Leal BASO # 0.0 103/ul Normal 0.0-0.1 [facility] Comment on above: Performed By: #### C BC ####[facility] Vkejclqxqz[address] [place], [place] [address]Dr. Farhat Leal Basophils/100 WBC (Bld) 0.4 % Normal 0.2-2.0 [facility] Comment on above: Performed By: #### C BC ####[facility] Zmgmamoxqf9[address] [place], [place] [address]Dr. Farhat Leal EO # 0.1 103/ul Normal 0.0-0.7 [facility] Comment on above: Performed By: #### C BC ####[facility] Zfmhzdmisv05[address] [place], [place] [address]Dr. Farhat Leal Eosinophils/100 WBC (Bld) 1.1 % Normal 0.9-7.0 [facility] Comment on above: Performed By: #### C BC ####[facility] Nhlnkcjjuy99[address] [place], [place] [address]Dr. Farhat Leal Erythrocyte distribution width (RBC) [Ratio] 12.6 % Normal 11.0-15.0 [facility] Comment on above: Performed By: #### C BC ####[facility] Dhwwyscxhy4930[address] [place], [place] [address]Dr. Farhat Leal Hematocrit (Bld) [Volume fraction] 40.8 % Critically low 42.0-54.0 [facility] Comment on above: Performed By: #### C BC ####[facility] Aefuzllqej9590[address] [place], [place] [address]Dr. Farhat Elvis Hemoglobin (Bld) [Mass/Vol] 13.6 g/dL Critically low 14.0-18.0 [facility] Comment on above: Performed By: #### C BC ####[facility] Bolpveevgh[address] [place] [address]DrSkylar Leal IG # 0.08 10e3/ul Critically high 0.00-0.03 [facility] Comment on above: Performed By: #### C BC ####[facility] Ypoqlaymnz0552 [place] [address]DrSkylar Leal IG % 0.9 % Critically high 0.0-0.5 [facility] Comment on above: Performed By: #### C BC ####[facility] Fhkttfmckx7420[address] [place], [place] [address]DrSkylar Leal LYMPH # 0.8 103/ul Critically low 1.2-3.8 [facility] Comment on above: Performed By: #### C BC ####[facility] Ppfnguwckf25[address] [place], [place] [address]DrSkylar Leal Lymphocytes/100 WBC (Bld) 8.7 % Critically low 20.5-60.0 [facility] Comment on above: Performed By: #### C BC ####[facility] Ifssyahcnj33[address] [place], [place] [address]DrSkylar Leal MANUAL DIFF REQ NO Normal [facility] Comment on above: Performed By: #### C BC ####[facility] Veqvnozhnm19[address] [place], [place] [address]DrSkylar Leal MCH (RBC) [Entitic mass] 31.6 pg Normal 25.9-34.0 [facility] Comment on above: Performed By: #### C BC ####[facility] Wxanenifaj5520[address] [place], [place] [address]DrSkylar Leal MCHC (RBC) [Mass/Vol] 33.3 g/dL Normal 29.9-35.2 [facility] Comment on above: Performed By: #### C BC ####[facility] Dhfjmelulu0522[address] [place], [place] [address]DrSkylar Leal MCV (RBC) [Entitic vol] 94.9 fL Critically high 80.0-94.0 [facility] Comment on above: Performed By: #### C BC ####[facility] Obiovgeoej[address] [place] [address]DrSkylar Farhat Leal MONO # 1.0 103/ul Critically high 0.3-0.8 [facility] Comment on above: Performed By: #### C BC ####[facility] Rpvzucapfp5159[address] [place], [place] [address]Dr. Farhat Leal Monocytes/100 WBC (Bld) 11.3 % Normal 1.7-12.0 [facility] Comment on above: Performed By: #### C BC ####[facility] Susvhinaeh659[address] [place], [place] [address]DrSkylar Joshilorri Leal NEUT # 6.9 103/ul Critically high 1.4-6.5 [facility] Comment on above: Performed By: #### C BC ####[facility] Seoayonips5757[address] [place], [place] [address]Dr. Farhat Leal Neutrophils/100 WBC (Bld) 77.6 % Critically high 43.0-75.0 [facility] Comment on above: Performed By: #### C BC ####[facility] Frbnvrsqwo436[address] [place], [place] [address]Dr. Farhat Leal Platelet mean volume (Bld) [Entitic vol] 9.7 fL Normal 9.5-13.5 [facility] Comment on above: Performed By: #### C BC ####[facility] Rxmovgegeh4724[address] [place], [place] [address]Dr. Farhat Leal PLT 171 103/ul Normal 150-450 [facility] Comment on above: Performed By: #### C BC ####[facility] Gsbhdszybi25[address] [place], [place] [address]DrSkylar Leal RBC 4.30 106/ul Critically low 4.70-6.10 [facility] Comment on above: Performed By: #### C BC ####[facility] Vhlypmfwwj22[address] [place], [place] [address]Dr. Farhat Leal WBC 8.9 103/ul Normal 4.0-11.0 [facility] Comment on above: Performed By: #### C BC ####[facility] Zjeedcdlfo[address] [place] [address]Dr. Farhat Elvis Covid-19 PCR (CVDTB)on SARS-CoV-2 (COVID-19) RNA JOSH+probe Ql (Unsp spec) Not detected Normal NOT DETECTED [facility] Comment on above: Result Comment: When [...] for this test is supported by the Assistant Produce Manager of Health and Human Service's declaration that [...] be used). Performed By: #### C VDTB ####[facility] Ddsnnfmoff7[address] [place] [address]Dr. Farhat Leal PROF 14(COMP METB)on 022 Albumin [Mass/Vol] 2.6 g/dL Critically low 3.4-5.0 Th e [facility] Comment on above: Performed By: #### C MP ####[facility] [address]ksvwhpccn[address] [place] [address]Dr. Farhat Leal Albumin/Globulin [Mass ratio] 0.7 {ratio} Normal [facility] Comment on above: Performed By: #### C MP ####[facility] T[address]ugcxsfx[address] [place] [phone]. Farhat Leal ALP [Catalytic activity/Vol] 88 U/L Normal 46-116 [facility] Comment on above: Performed By: #### C MP ####[facility] Mtruwabsyr98[address] [place] [phone]. Farhat Leal ALT [Catalytic activity/Vol] 15 U/L Critically low 16-63 [facility] Comment on above: Performed By: #### C MP ####[facility] Krckphulwy0688 [place] [phone]. Farhat Leal Anion gap [Moles/Vol] 11.7 mmol/L Normal [facility] Comment on above: Performed By: #### C MP ####[facility] Enagkkkvrh5[address] [place] [phone]. Farhat Elvis AST [Catalytic activity/Vol] 25 U/L Normal 15-37 [facility] Comment on above: Performed By: #### C MP ####[facility] Tsbwfeuqkn[address] [place] [address]Dr. Farhat Elvis Bilirubin [Mass/Vol] 0.6 mg/dL Normal 0.2-1.0 [facility] Comment on above: Performed By: #### C MP ####[facility] Wcmfqjnazx3938 [place] [phone]. Farhat Elvis Calcium [Mass/Vol] 8.9 mg/dL Normal 8.5-10.1 [facility] Comment on above: Performed By: #### C MP ####[facility] Exvddbcyce85[address] [place] [phone]. Farhat Elvis Chloride [Moles/Vol] 93 mmol/L Critically low 98-107 [facility] Comment on above: Performed By: #### C MP ####[facility] Dxktihviix6231 [place] [phone]. Farhat Leal CO2 [Moles/Vol] 28.9 mmol/L Normal 21.0-32.0 [facility] Comment on above: Performed By: #### C MP ####[facility] Zohcicooqs16[address] [place] [phone]. Madelynlorri Leal Creatinine [Mass/Vol] 2.09 mg/dL Critically high 0.70-1.30 [facility] Comment on above: Performed By: #### C MP ####[facility] Lowukexsix4328 [place] [phone]. Farhat Elvis EGFR-AF SOMALI 38 mL/min/1.73m2 Critically low >=60 [facility] Comment on above: Performed By: #### C MP ####[facility] Fiythbumdb6204 [place] [phone]. Farhat Elvis EGFR-NON AF SOMALI 31 mL/min/1.73m2 Critically low >=60 [facility] Comment on above: Performed By: #### C MP ####[facility] Nyvrjeqitx5961 [place] [phone]. Farhat Leal Globulin (S) [Mass/Vol] 3.7 g/dL Normal [facility] Comment on above: Performed By: #### C MP ####[facility] Pkhelnhgsq58[address] [place] [address]Dr. Farhat Leal Glucose [Mass/Vol] 214 mg/dL Critically high 74-106 [facility] Comment on above: Performed By: #### C MP ####[facility] Cdwqvvffha5960 [place] [phone]. Farhat Leal Potassium [Moles/Vol] 5.6 mmol/L Critically high 3.5-5.1 [facility] Comment on above: Performed By: #### C MP ####[facility] Diqzwkidby1033 [place] [phone]. Farhat Leal Protein [Mass/Vol] 6.3 g/dL Critically low 6.4-8.2 [facility] Comment on above: Performed By: #### C MP ####[facility] Qdymfgwdcg0554 [place] [phone]. Farhat Leal Sodium [Moles/Vol] 128 mmol/L Critically low 136-145 [facility] Comment on above: Performed By: #### C MP ####[facility] Prlwlkqkwe9435 [place] [phone]. Farhat Leal Urea nitrogen [Mass/Vol] 65.0 mg/dL Critically high 7.0-18.0 [facility] Comment on above: Performed By: #### C MP ####[facility] Msryallbdz1867 [place] [phone]. Farhat Leal Urea nitrogen/Creatinine [Mass ratio] 31.1 mg/mg Normal [facility] Comment on above: Performed By: #### C MP ####[facility] Dfdmzqwpmz1059 [place] [phone]. Farhat Leal Albumin [Mass/Vol] 2.5 g/dL Critically low 3.4-5.0 Th e [facility] Comment on above: Performed By: #### T MYRIAM, CMP ####[facility] Fozbvjkqlm6346 [place] [address]Dr. Farhat Leal Albumin/Globulin [Mass ratio] 0.7 {ratio} Normal [facility] Comment on above: Performed By: #### T MYRIAM, CMP ####[facility] Ytpyphzsce18[address] [place], [place] [address]Dr. Farhat Leal ALP [Catalytic activity/Vol] 83 U/L Normal 46-116 [facility] Comment on above: Performed By: #### T MYRIAM, CMP ####[facility] Gxxrlnitqr2227[address] [place], [place] [address]Dr. Farhat Leal ALT [Catalytic activity/Vol] 16 U/L Normal 16-63 [facility] Comment on above: Performed By: #### T MYRIAM, CMP ####[facility] Wtbgvqnmwm4995[address] [place], [place] [address]Dr. Farhat Leal Anion gap [Moles/Vol] 9.7 mmol/L Normal [facility] Comment on above: Performed By: #### T MYRIAM, CMP ####[facility] Ecrsslenzk035[address] [place], [place] [address]Dr. Farhat Leal AST [Catalytic activity/Vol] 27 U/L Normal 15-37 [facility] Comment on above: Performed By: #### T SH, CMP ####[facility] Jvlwvpfogj823[address] [place], [place] [address]Dr. Farhat Leal Bilirubin [Mass/Vol] 0.5 mg/dL Normal 0.2-1.0 [facility] Comment on above: Performed By: #### T SH, CMP ####[facility] Wyfmkqlekq8567 [place] [address]Dr. Farhat Leal Calcium [Mass/Vol] 8.8 mg/dL Normal 8.5-10.1 [facility] Comment on above: Performed By: #### T SH, CMP ####[facility] Dqobpuxkar3899[address] [place], [place] [address]Dr. Farhat Leal Chloride [Moles/Vol] 95 mmol/L Critically low 98-107 [facility] Comment on above: Performed By: #### T SH, CMP ####[facility] Wtdsiemjqf3974[address] [place], [place] [address]Dr. Farhat Leal CO2 [Moles/Vol] 30.5 mmol/L Normal 21.0-32.0 [facility] Comment on above: Performed By: #### T SH, CMP ####[facility] Kmeotowhkp5860[address] [place], [place] [address]Dr. Farhat Leal Creatinine [Mass/Vol] 2.18 mg/dL Critically high 0.70-1.30 [facility] Comment on above: Performed By: #### T SH, CMP ####[facility] Fluhzsbnap3615[address] [place], [place] [address]Dr. Farhat Leal EGFR-AF SOMALI 36 mL/min/1.73m2 Critically low >=60 [facility] Comment on above: Performed By: #### T SH, CMP ####[facility] Fppjnkzzhr1237[address] [place], [place] [address]Dr. Farhat Leal EGFR-NON AF SOMALI 30 mL/min/1.73m2 Critically low >=60 [facility] Comment on above: Performed By: #### T SH, CMP ####[facility] Wthauopemf813[address] [place], [place] [address]Dr. Farhat Leal Globulin (S) [Mass/Vol] 3.5 g/dL Normal [facility] Comment on above: Performed By: #### T SH, CMP ####[facility] Jdvpdjbrui7380[address] [place], [place] [address]Dr. Farhat Leal Glucose [Mass/Vol] 141 mg/dL Critically high 74-106 [facility] Comment on above: Performed By: #### T SH, CMP ####[facility] Jioexmkkrk888[address] [place], [place] [address]Dr. Farhat Leal Potassium [Moles/Vol] 5.2 mmol/L Critically high 3.5-5.1 [facility] Comment on above: Performed By: #### T SH, CMP ####[facility] Xalcmpgskm25[address] [place], [place] [address]Dr. Farhat Leal Protein [Mass/Vol] 6.0 g/dL Critically low 6.4-8.2 [facility] Comment on above: Performed By: #### T MYRIAM, CMP ####[facility] Unvjnowqki5[address] [place], [place] [address]Dr. Farhat Leal Sodium [Moles/Vol] 130 mmol/L Critically low 136-145 [facility] Comment on above: Performed By: #### T MYRIAM, CMP ####[facility] Lwzhwimtke87[address] [place], [place] [address]Dr. Farhat eLal Urea nitrogen [Mass/Vol] 63.0 mg/dL Critically high 7.0-18.0 [facility] Comment on above: Performed By: #### T MYRIAM, CMP ####[facility] Ndmdbsnygl0998[address] [place], [place] [address]Dr. Farhat Leal Urea nitrogen/Creatinine [Mass ratio] 28.9 mg/mg Normal [facility] Comment on above: Performed By: #### T MYRIAM, CMP ####[facility] Alxbrnufnf[address] [place], [place] [address]Dr. Farhat Leal PROTIMEon 09-18-2021 INR Coag (PPP) [Relative time] 1.06 {INR} Normal [facility] Comment on above: Performed By: #### P T, PTT ####[facility] Bxaoroggrh35[address] [place], [place] [address]Dr. Farhat Leal INR GUIDELINES SEE BELOW Normal [facility] Comment on above: Result Comment: MALINA RED INR: 2.0 - 3.0 CONDITIONS NOT LISTED BELOW 2.5 - 3.5 FOR PROSTHETIC HEART VALVE REPLACEMENT 2.5 - 3.5 RECURRENT THROMBOSIS Performed By: #### P T, PTT ####[facility] Dmhttbridv[address] [place] [address]Dr. Farhat Leal PT Coag (PPP) [Time] 11.4 s Normal 9.0-11.6 [facility] Comment on above: Performed By: #### P T, PTT ####[facility] [address]ax[address]yt[address] [place] [address]Dr. Farhat Leal PTTon 09-18-2021 aPTT Coag (Bld) [Time] 27.9 s Normal 22.3-36.2 [facility] Comment on above: Performed By: #### P T, PTT ####[facility] Huoxbeuibg60[address] [place] [address]Dr. Farhat Leal TSHon 09-18-2021 TSH 7.099 uIU/mL Critically high 0.358-3.740 [facility] Comment on above: Performed By: #### T SH, CMP ####[facility] Gvowgtnfxt9[address] [place], [place] [address]Dr. Farhat Leal US SALOME DOP LEG RTon 09-19-19 22 US SALOME DOP LEG RT Normal [facility] XR CHEST 1 Von 09-18-2021 XR CHEST 1 V Normal [facility] XR HIP RT 2 3V W PELVISon XR HIP RT 2 3V W PELVIS Normal [facility] Vital Signs Date Time Vital Sign Value Performing Clinician Facility 03-18-2023 13:37-0500 Body temperature 98.01 [degF] [employer] [place] [employer] Work Phone: [facility] 03-18-2023 13:37-0500 Diastolic blood pressure 64 mm[Hg] [place] [employer] Work Phone: [facility] 03-18-2023 13:37-0500 Heart rate 72 /min [employer] [place] [employer] Work Phone: [facility] 03-18-2023 13:37-0500 SaO2% (BldA) [Mass fraction] 98 % [place] [employer] Work Phone: [facility] 03-18-2023 13:37-0500 Systolic blood pressure 118 mm[Hg] Ni Cabrera DO Work Phone: [facility] 07-20-2022 13:35-0400 Body temperature 97.4 [degF] DO Devon Ball Work Phone: [facility] 07-20-2022 13:35-0400 Diastolic blood pressure 50 mm[Hg] DO Devon Ball Work Phone: [facility] 07-20-2022 13:35-0400 Heart rate 67 /min DO Devon Ball Work Phone: [facility] 07-20-2022 13:35-0400 Respiratory rate 20 /min DO Devon Ball Work Phone: [facility] 07-20-2022 13:35-0400 Systolic blood pressure 98 mm[Hg] DO Devon Ball Work Phone: [facility] 06-29-2022 14:46-0400 Body height 193.04 cm DO Devon Ball Work Phone: [facility] 02-26-2022 13:11-0500 Body temperature 96.6 [degF] Hina Peterson MD Work Phone: [facility] 02-26-2022 13:11-0500 Diastolic blood pressure 75 mm[Hg] Hina Peterson MD Work Phone: [facility] 02-26-2022 13:11-0500 Heart rate 75 /min Hina Peterson MD Work Phone: [facility] 02-26-2022 13:11-0500 Systolic blood pressure 88 mm[Hg] Hina Peterson MD Work Phone: [facility] 02-05-2022 08:29-0500 Body temperature 96.69 [degF] [facility] Work Phone: [facility] 02-05-2022 08:29-0500 Diastolic blood pressure 42 mm[Hg] [facility] Work Phone: [facility] 02-05-2022 08:29-0500 Heart rate 79 /min [facility] Work Phone: [facility] 02-05-2022 08:29-0500 SaO2% (BldA) [Mass fraction] 100 % [facility] Work Phone: [facility] 02-05-2022 08:29-0500 Systolic blood pressure 72 mm[Hg] [facility] Work Phone: [facility] 01-12-2022 11:00-0500 Diastolic blood pressure 54 mm[Hg] Alissa Major [employer] Work Phone: [facility] 01-12-2022 11:00-0500 Heart rate 88 /min Alissa Major [employer] Work Phone: [facility] 01-12-2022 11:00-0500 SaO2% (BldA) [Mass fraction] 93 % Alissa Major [employer] Work Phone: [facility] 01-12-2022 11:00-0500 Systolic blood pressure 96 mm[Hg] Alissa Major [employer] Work Phone: [facility] 01-12-2022 10:12-0500 Body temperature 97.9 [degF] Alissa Major [employer] Work Phone: [facility] 01-12-2022 10:12-0500 Respiratory rate 18 /min Alissa Major [employer] Work Phone: [facility] 11-17-2021 15:59-0400 Body height 193 cm No Reeder DO Work Phone: [facility] 11-17-2021 15:59-0400 Body weight 111.58 kg No Reeder DO Work Phone: [facility] 11-17-2021 15:59-0400 Diastolic blood pressure 59 mm[Hg] No Reeder DO Work Phone: [facility] 11-17-2021 15:59-0400 Heart rate 86 /min No Reeder DO Work Phone: [facility] 11-17-2021 15:59-0400 SaO2% (BldA) [Mass fraction] 97 % No Reeder DO Work Phone: [facility] 11-17-2021 15:59-0400 Systolic blood pressure 104 mm[Hg] No Reeder DO Work Phone: [facility] Encounters Encounter Date Encounter Type Care Provider Facility Start: 04-11-2023 End: 04-11-2023 ambulatory Devon Moreira Other [facility] Other Start: 04-11-2023 Telephone encounter Devon NUNEZ [facility] Start: 03-18-2023 End: 03-18-2023 ambulatory NI CABRERA Not Available Start: 03-18-2023 End: 03-18-2023 Office outpatient visit 25 minutes Ni Cabrera DO Work Phone: [facility] [phone] Comment on above: 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 ([facility]/HCC) (Primary Dx); 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 ([facility]); Type 1 diabetes mellitus with nephropathy ([facility]); Type 1 diabetes mellitus with hypoglycemia and without coma ([facility]); 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 ([facility]/HCC) Start: 02-17-2023 End: 02-17-2023 ambulatory Devon Moreira Other [facility] Other Start: 02-17-2023 Telephone encounter Devon Moreira MAYRA Anais [facility] Start: 01-14-2023 End: 01-14-2023 ambulatory Devon Moreira Other [facility] Other Start: 01-14-2023 Sbs nursing facil c are/day minor complj 15 min [facility] Start: 12-10-2022 End: 12-10-2022 ambulatory Devon Moreira Other [facility] Other Start: 12-10-2022 Sbsq nursing facil c are/day minor complj 15 min [facility] Start: 11-12-2022 End: 11-12-2022 ambulatory Devon Moreira Other [facility] Other Start: 11-12-2022 Sbsq nursing facil c are/day minor complj 15 min [facility] Start: 10-16-2022 Refill Asia iPke MD Work Phone: [facility] Comment on above: Med Change Request Start: 10-12-2022 End: 10-12-2022 ambulatory Devon Moreira Other [facility] Other Start: 10-12-2022 Telephone encounter [facility] Start: 10-08-2022 End: 10-08-2022 ambulatory Devon Moreira Other [facility] Other Start: 10-08-2022 Sbsq nursing facil c are/day new problem 25 min [facility] Start: 09-22-20[facility] Comment on above: Rx Refills Start: 09-10-2022 End: 09-10-2022 ambulatory Devon Moreira Other [facility] Other Start: 09-10-2022 Sbsq nursing facil c are/day new problem 25 min [facility] Start: 09-09-2022 End: 09-09-2022 ambulatory [facility] Start: 08-06-2022 End: 08-06-2022 ambulatory Devon Moreira Other [facility] Other Start: 08-06-2022 Sbsq nursing facil c are/day new problem 25 min [facility] Start: 07-22-2022 End: 07-22-2022 ambulatory Devon Moreira Other [facility] Other Start: 07-22-2022 Telephone encounter Devon Moreira MAYRA G [facility] Start: 07-20-2022 End: 07-20-2022 ambulatory Sadia Aguilar Facility:[facility] Start: 07-20-2022 End: 07-20-2022 ambulatory DO Devon Moreira Work Phone: [facility] Work Phone: Start: 07-20-2022 End: 07-20-2022 Discharged Recurring DO Devon Moreira Work Phone: [facility] Work Phone: Start: 07-13-2022 End: 07-13-[address] DEVON MOREIRA Facility:[facility] Start: 07-10-2022 End: 07-10-[address] DEVON MOREIRA Facility:[facility] Start: 07-03-2022 End: 07-03-[address] DEVON MOREIRA Facility:[facility] Start: 06-26-2022 End: 06-26-[address] DEVON MOREIRA Facility:[facility] Start: 06-26-2022 End: 06-26-[address] DEVON MOREIRA Facility:[facility] Start: 06-25-2022 End: 06-25-2022 ambulatory Devon Moreira Other [facility] Other Start: 06-25-2022 Sbsq nursing facil c are/day minor complj 15 min Devon [facility] Start: 06-19-2022 End: 06-19-[address] DEVON MOREIRA Facility:[facility] Start: 06-15-2022 End: 07-15-2022 ambulatory SHAIKH Kate MURRAY Facility:[facility]1 Start: 06-12-2022 End: 06-12-[address] DOCTOR WALSH Facility:[facility]1 Start: 06-05-2022 Sbsq nursing facil c are/day new problem 25 min [facility] Start: 06-05-2022 End: 06-05-[address] DEVON MOREIRA [facility] Other Start: 05-29-2022 End: 05-29-[address] DEVON MOREIRA Facility:[facility]1 Start: 05-22-2022 End: 05-22-[address] DEVON MOREIRA Facility:[facility]1 Start: 05-20-2022 End: 05-20-[address] DEVON OMREIRA Facility:[facility]1 Start: 05-18-2022 End: 06-12-2022 ambulatory SHAIKH Kate MURRAY Facility:[facility]1 Start: 05-15-2022 End: 05-15-[address] DEVON MOREIRA Facility:[facility]1 Start: 05-13-2022 End: 05-13-2022 ambulatory Van Olivarez [employer]AT[employer].CHIEF SCIENTIST Work Phone: [facility] Comment on above: results Start: 05-13-2022 E-mail encounter fro m caregiver Van Olivarez LABORATORY [employer] BLOWER.CHIEF SCIENTIST Work Phone: [facility] Start: 05-08-2022 End: 05-08-[address] DEVON MOREIRA Facility:[facility]1 Start: 05-07-2022 End: 05-07-2022 ambulatory Devon Moreira Other [facility] Other Start: 05-07-2022 Sbs nursing facil c are/day new problem 25 min [facility] Start: 05-06-2022 End: 05-06-[address] [...] MOREIRA Facility:H1 Start: 04-02-2022 ambulatory Van cortes LABORATORY [employer] BLOWER.CHIEF SCIENTIST Work Phone: [facility] Start: 04-01-2022 End: 04-01-[address] DEVON MOREIRA Facility:[facility]1 Start: 03-22-2022 Anne Pike MD Work Phone: [facility] Comment on above: Med Change Request Start: 03-21-2022 ambulatory SHAIKH Kate MURRAY Facilit y:H1 Start: 03-11-2022 End: 03-11-[address] DEVON MOREIRA Facility:[facility]1 Start: 03-10-2022 End: 03-10-2022 ambulatory [facility] Start: 02-27-2022 Refill Samira Serna [facility] Comment on above: Rx Refills Start: 02-26-2022 End: 02-26-2022 ambulatory DEVON MOREIRA Facility:[facility] Start: 02-26-2022 End: 02-26-2022 Patient encounter [...] Start: 02-05-2022 End: 02-06-2022 [facility] Start: 02-05-2022 End: 02-05-2022 Patient encounter procedure [facility] Work Phone: [facility] Comment on above: Kidney replaced by t ransplant (Primary Dx); 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; [facility] current use of immunosuppressive drug Start: 01-26-2022 End: 01-26-[address] DEVON MOREIRA Facility:[facility]1 Start: 01-20-2022 Telephone encounter Van Olivarez APRN.CNP Work Phone: [facility] [place] Comment on above: Results Start: 01-19-2022 End: 01-19-[address] DEVON MOREIRA Facility:[facility]1 Start: 01-16-2022 ambulatory SHAIKH Kate MURRAY Facilit y:[facility]1 Start: 01-12-2022 End: 01-12-2022 Subsequent hospital visit by physician Alissa Chavira APRN.CHIEF SCIENTIST Work Phone: [facility] Comment on above: ILIANA [...] Start: 12-08-2021 Orders Only Artur Basiliomisael charles [employer]ORAT[employer].CHIEF SCIENTIST Work Phone: [facility] Comment on above: [...] 12-01-2021 Patient encounter procedure [facility] Prov ider [facility] Department Start: 11-23-2021 End: 11-28-2021 Evaluation [...] encounter Start: 11-14-2021 End: 11-15-2021 ambulatory [facility] Sebastian [facility] Facility:H1 Start: 10-24-2021 End: 11-15-2021 ambulatory SHAIKH Kate MURRAY Facility:[facility]1 Start: 10-22-2021 End: 10-23-2021 ambulatory [facility] Sebastian [facility] Facility:[facility]1 Start: 10-06-2021 ambulatory Van cortes LABORAT[employer] BL[employer].CHIEF SCIENTIST Work Phone: Kidney Medicine [facility] Start: 09-30-2021 Anne Pike MD Work Phone: Kidney [facility] Comment on above: Refill Request Start: 09-19-2021 End: 09-24-2021 Evaluation and management of inpatient DR PROSPER LEES Facility:[facility]1 Start: 09-18-2021 End: 09-19-[address] DEVON MOREIRA Facility:[facility]1 Start: 07-11-2021 Refill Asia Pike MD Work Phone: Kidney [facility] Comment on above: Refill Request Start: 06-05-2021 Telephone encounter Van Kuldeep Olivarez [employer]ORAT[employer].CHIEF SCIENTIST Work Phone: Kidney [facility] Comment on above: Results Start: 02-05-2021 End: 02-13-2021 ambulatory UNKNOWN PROVIDER Facility:[facility] Procedures Date Procedure Procedure Detail Performing Clinician Start: 03-18-2023 Hemoglobin glycosyla rk a1c Ni Cabrera DO Work Phone: Start: 02-05-2022 Creatinine other source Asia Pike MD Work Phone: Start: 02-05-2022 Urnls dip stick/tabl et rgnt auto w/o microscopy Asia Pike MD Work Phone: Start: 01-12-2022 Prothrombin time Alissa Chavira LABORATORY [employer] BLOWER.CHIEF SCIENTIST Work Phone: Start: 12-01-2021 PACEMAKER CLINIC CHECK [facility] Provider Start: 11-29-2021 Microscopic examinat ion of blood, culture DR PROSPER LEES Comment on above: Performed By: #### B [id number] ####[facility] [id number] [id number]. Farhat Leal Start: 11-27-2021 Insertion of Infusio [...] renal transplant KIDNEY TRANSPLANT STATUS Van Olivarez [employer]ORAT[employer] BLOWER.CHIEF SCIENTIST Work Phone: History of renal transplant Kidney replaced by transplant Artur Garciajasvir LABORATORY [employer] BLOWER.CHIEF SCIENTIST Work Phone: History of renal transplant Kidney replaced by transplant [facility] Work Phone: History of renal transplant Devon Moreira Other History of renal transplant Kidney replaced by transplant Asia Pike MD Work Phone: History of renal transplant [facility] Other Plan of Treatment Date Care Activity Detail Author Start: 06-17-2023 End: 06-17-2023 Patient encounter procedure 06/17/2023 2:15 PM EDT Office Visit [facility] [address] [place] [address] Ni Cabrera DO [address] [facility] [address] [place] [address] [facility] [address] Start: 06-16-2023 Hemoglobin A1c measurement Diabetes: Hemoglobin A1C [facility] Start: 02-26-2023 BP CONTROLLED (<130/80) BP CONTROLLE D (<130/80) [facility] Start: 02-05-2023 BP CONTROLLED (<130/80) BP CONTROLLE D (<130/80) [facility] Start: 01-12-2023 BP CONTROLLED (<130/80) BP CONTROLLE D (<130/80) [facility] Start: 11-17-2022 BP CONTROLLED (<130/80) BP CONTROLLE D (<130/80) [facility] Start: 10-16-2022 Influenza vaccination [facility] Start: 05-15-2022 Medicare Annual Wellness (AWV) Medicare Annual Wellness (AWV) [facility] Start: 04-08-2022 BP CONTROLLED (<130/80) BP CONTROLLE D (<130/80) [facility] Start: 02-15-2022 ADVANCE DIRECTIVE DISCUSSION ADVANCE DIRECTIVE DISCUSSION [facility] Start: 02-15-2022 DEPRESSION ASSESSMENT DEPRESSION ASS ESSMENT [facility] Start: 02-05-2022 COVID-19 VACCINE (5 - Yung risk series) COVID-19 VACCINE (5 - Yung risk series) [facility] Start: 11-27-2021 COVID-19 VACCINE (4 - Booster for Yung series) COVID-19 VACCINE (4 - Booster for Yung series) [facility] Start: 11-04-2021 Hemoglobin A1c/Hemoglobin.total in Blood HBA1C [facility] Start: 10-16-2021 Influenza vaccination [facility] Start: 03-26-2021 COVID-19 VACCINE (3 - Yung risk 3-dose series) COVID-19 VACCINE (3 - Yung risk 3-dose series) [facility] Start: 03-26-2021 COVID-19 VACCINE (3 - Yung risk series) COVID-19 VACCINE (3 - Yung risk series) [facility] Start: 02-15-2021 ADVANCE DIRECTIVE DISCUSSION ADVANCE DIRECTIVE DISCUSSION [facility] Start: 02-15-2021 DEPRESSION ASSESSMENT DEPRESSION ASS ESSMENT [facility] Start: 01-05-2016 Hepatitis B screening URINE AL BUMIN:CREATININE RATIO [facility] Start: 07-31-2015 Pneumococcal Vaccine : 65+ Years (3 - PCV) Pneumococcal Vaccine: 65+ Years (3 - PCV) [facility] Start: 04-06-2015 Hemoglobin A1c/Hemoglobin.total in Blood HBA1C [facility] Start: 11-22-2010 Hepatitis B surface antibody level LDL CHOLESTEROL [facility] Start: 2009 ADULT PREVNAR-13 ADULT PREVNAR-13 Cl [facility] Start: 2009 PNEUMOVAX AGE 65 AND OVER WITH 5YR LOOKBACK (#1) PNEUMOVAX AGE 65 AND OVER WITH 5YR LOOKBACK (#1) [facility] Start: 1994 SHINGRIX VACCINE (1 of 2) SHINGRIX VACCINE (1 of 2) [facility] Start: 10-18-1963 HEPATITIS A (1 of 2 - Risk 2-dose series) HEPATITIS A (1 of 2 - Risk 2-dose series) [facility] Start: 10-18-1963 Hepatitis A Vaccine (1 of 2 - Risk 2-dose series) Hepatitis A Vaccine (1 of 2 - Risk 2-dose series) [facility] Start: 10-18-1963 SHINGRIX VACCINE (1 of 2) SHINGRIX VACCINE (1 of 2) [facility] Start: 10-18-1963 Urine microalbumin profile [facility] Start: 1962 ANNUAL PCP TEAM MASONRY INSTRUCTOR MATTHEW DISEASE VISIT ANNUAL PCP TEAM CHRONIC DISEASE VISIT [facility] Start: 1956 Adult depression screening assessment DEPRESSION SCREENING [facility] Start: 1954 3 comp foot exam completed DIABETIC FOOT EXAM [facility] Start: 1954 Glaucoma screening Diabetes: R etinopathy Screening [facility] Start: 1954 Hepatitis C antibody , confirmatory test DILATED RETINAL EXAM [facility] Start: 1950 Pneumococcal Vaccine : 65+ (1 - PCV) Pneumococcal Vaccine: 65+ (1 - PCV) [facility] Start: 1950 PNEUMOCOCCAL: 65+ (1 - PCV) PNEUMOCOCCAL: 65+ (1 - PCV) [facility] Start: 1945 HEPATITIS A (1 of 2 - Risk 2-dose series) HEPATITIS A (1 of 2 - Risk 2-dose series) [facility] URINALYSIS, REFLEX MICROSCOPIC URINALYSIS, REFLEX MICROSCOPIC Lab Routine Screening for genitourinary condition Ordered: 10/06/2021 [facility] Work Phone: Comment on above: Ordered: 10/06/2021 URINALYSIS, REFLEX MICROSCOPIC URINALYSIS, REFLEX MICROSCOPIC Lab Routine Screening for genitourinary condition Ordered: 04/02/2022 [facility] Work Phone: Comment on above: Ordered: 04/02/2022 End: 11-17-2022 US LEG ARTERIAL PERIPH UNL VAS LAB US LEG ARTERIAL PERIPH UNL VAS LAB Vascular Lab Routine PAD (peripheral artery disease) (HCC) Nonhealing ulcer of heel (HCC) 1 Occurrences starting 11/17/2021 until 11/17/2022 [facility] Work Phone: Comment on above: 1 Occurrences starti ng 11/17/2021 until 11/17/2022 End: 11-17-2022 US LEG VEIN DVT UNL VAS LAB US LEG VEIN DVT UNL VAS LAB Vascular Lab Routine Acute deep vein thrombosis (DVT) of proximal end of right lower extremity (HCC) 1 Occurrences starting 11/17/2021 until 11/17/2022 [facility] Work Phone: Comment on above: 1 Occurrences starti ng 11/17/2021 until 11/17/2022 [facility] BROTHERS CT & VAS DANIEL BROTHERS CT & VAS [facility] Immunizations Immunization Date Immunization Notes Care Provider Fa cili 12-11-2021 COVID-19 booster vaccine, age 12+ yr, bivalent (PFIZER-BIONTIQumulus) Paresh Fonseca MD Work Phone: [facility] 12-11-2021 influenza, high-dose , quadrivalent vaccine (FLUZONE HIGH DOSE QUADRIVALENT) Paresh Fonseca MD Work Phone: [facility] 12-11-2021 influenza virus vaccine, unspecified formulation [facility] 10-[facility]21 influenza, high dose seasonal, preservative-free Ni Petznick DO Work Phone: [facility] 01-19-2019 influenza, high dose seasonal, preservative-free Ni Petznick DO Work Phone: [facility] 11-25-2017 Seasonal trivalent influenza vaccine, adjuvanted, preservative free Ni Petznick DO Work Phone: [facility] 11-05-2016 influenza, high dose seasonal, preservative-free Ni Petznick DO Work Phone: [facility] 07-30-2014 pneumococcal polysaccharide vaccine, 23 valent Ni Petznick DO Work Phone: [facility] 03-09-2011 influenza virus vaccine, unspecified formulation Van Olivarez APRN.CHIEF SCIENTIST Work Phone: [facility] 12-17-2007 influenza virus vaccine, unspecified formulation Van Olivarez APRN.CHIEF SCIENTIST Work Phone: [facility] Work Phone: 02-11-2006 influenza virus vaccine, unspecified formulation Van Olivarez LABORATORY APPAR[employer] GLASS BLOWER.CHIEF SCIENTIST Work Phone: [facility] Work Phone: 12-07-2003 influenza virus vaccine, unspecified formulation Van Olivarez LABORATORY AP[employer] BLOWER.CHIEF SCIENTIST Work Phone: [facility] Work Phone: 12-07-2003 pneumococcal polysaccharide vaccine, 23 valent Van Olivarez LABORATORY APPAR[employer]ASS BLOWER.CHIEF SCIENTIST Work Phone: [facility] Work Phone: NEGATED: Highlighted row has not occurred!12-10-2021 COVID-19 booster vaccine, age 12+ yr, bivalent (NuLabel) Paresh Fonseca MD Work Phone: [facility] NEGATED: Highlighted row has not occurred!12-10-2021 influenza, high-dose, quadrivalent vaccine (FLUZONE HIGH DOSE QUADRIVALENT) Paresh Fonseca MD Work Phone: [facility] Payers Date Payer Category Payer Medicare MEDICARE MEDICAR E A AND B [id number] 2009-Present [phone] [address] [address] [place] [address] Medicare [id number] 2009 Medicare [id number] .[id number] 2009 Unknown [employer] [place] [place] [employer] [place] MEDICARE SUPPLEMENT [id number] 2009-Present [phone] [place] [address] Indemnity [id number] .[id number] 2009 Unknown [id number]. 1.13.159.2.7.3 .890675.315 2009 Unknown [id number] 2.16.8 40.1.551846.19 2009 Unknown [id number] 1959 Medicare [id number] 1959 Self-pay 1944 Unknown [id number] 2.16.840.1.246155.3.579.2.732 1944 Unknown [id number] 2.16.840.1.694440.3.579.2.593 1944 Unknown [id number] 2.16.840.1.901256.3.579.2.593 1944 Unknown [id number] 2.16.840.1.011507.3.579.2.593 1944 Unknown [id number] 2.16.840.1.513465.3.579.2.593 1944 Unknown [id number] 2.16.840.1.081628.3.579.2.593 1944 Unknown [id number] 2.16.840.1.217774.3.579.2.593 1944 Unknown [id number] 2.16.840.1.169753.3.579.2.593 1944 Unknown [id number] 2.16.840.1.976821.3.579.2.593 1944 Unknown [id number] 2.16.840.1.894555.3.579.2.593 1944 Unknown [id number] 2.16.840.1.351598.3.579.2.593 1944 Unknown [id number] 2.16.840.1.928216.3.579.2.593 1944 Unknown [id number] 2.16.840.1.824622.3.579.2.593 1944 Unknown [id number] 2.16.840.1.562539.3.579.2.593 1944 Unknown [id number] 2.16.840.1.764524.3.579.2.593 1944 Unknown [id number] 2.16.840.1.476335.3.579.2.593 1944 Unknown [id number] 2.16.840.1.649924.3.579.2.593 1944 Unknown [id number] 2.16.840.1.452250.3.579.2.593 1944 Unknown [id number] 2.16.840.1.538717.3.579.2.593 1944 Unknown [id number] 2.16.840.1.869624.3.579.2.593 1944 Unknown [id number] 2.16.840.1.476281.3.579.2.593 1944 Unknown [id number] 2.16.840.1.207103.3.579.2.593 1944 Unknown [id number] 2.16.840.1.523124.3.579.2.593 1944 Unknown [id number] 2.16.840.1.802361.3.579.2.593 1944 Unknown [id number] 2.16.840.1.024492.3.579.2.593 1944 Unknown [id number] 2.16.840.1.743151.3.579.2.593 1944 Unknown [id number] 2.16.840.1.381360.3.579.2.593 1944 Unknown [id number] 2.16.840.1.259702.3.579.2.593 1944 Unknown [id number] 2.16.840.1.798517.3.579.2.593 1944 Unknown [id number] 2.16.840.1.989126.3.579.2.593 1944 Unknown [id number] 2.16.840.1.241236.3.579.2.593 1944 Unknown [id number] 2.16.840.1.924603.3.579.2.593 1944 Unknown [id number] 2.16.840.1.683105.3.579.2.593 1944 Unknown [id number] 2.16.840.1.857764.3.579.2.593 1944 Unknown [id number] 2.16.840.1.779261.3.579.2.593 1944 Unknown [id number] 2.16.840.1.715673.3.579.2.593 1944 Unknown [id number] 2.16.840.1.498368.3.579.2.593 1944 Unknown [id number] 2.16.840.1.506894.3.579.2.593 1944 Unknown [id number] 2.16.840.1.452255.3.579.2.593 1944 Unknown [id number] 2.16.840.1.119800.3.579.2.593 1944 Unknown [id number] 2.16.840.1.843529.3.579.2.593 1944 Unknown [id number] 2.16.840.1.439746.3.579.2.593 1944 Unknown [id number] 2.16.840.1.134595.3.579.2.593 1944 Unknown [id number] 2.16.840.1.580605.3.579.2.593 1944 Unknown [id number] 2.16.840.1.544709.3.579.2.593 1944 Unknown [id number] 2.16.840.1.207476.3.579.2.593 1944 Unknown [id number] 2.16.840.1.439813.3.579.2.593 1944 Unknown [id number] 2.16.840.1.912190.3.579.2.125 9 Medicare Medicare Outpatient [id number] 2T [id number] Unknown [id number] 2.16.840.1.557883.3.579.2.593 Unknown [id number] 2.16.840.1.768477.3.579.2.593 Unknown [id number] 2.16.840.1.913729.3.579.2.531 Social History Date Type Detail Facility Start: 03-09-2011 End: 07-07-2022 Tobacco smoking status NHIS Ex-smoker [facility] Work Phone: End: 02-15-1975 History of tobacco use Current smoker [facility] Work Phone: End: 02-15-1975 History of tobacco use Cigarette Smoker [facility] Work Phone: Start: 04-08-2021 End: 02-26-2022 Alcohol intake Current drinker of alcohol (finding) [facility] Start: 1945 Sex Assigned At Not on file [facility] Start: 03-09-2011 End: 10-20-2022 Cigarettes smoked current (pack per day) - Reported 1 [facility] Work Phone: Start: 03-09-2011 End: 02-26-2022 Tobacco use and exposure Smokeless tobacco non-user [facility] Start: 09-25-2021 History SDOH Financial 5 [facility] Start: 09-25-2021 History SDOH Food Worry 1 [facility] Start: 09-25-2021 History SDOH Transpo rt Med 2 [facility] Start: 09-14-2021 End: 01-12-2022 Exposure to SARS-CoV-2 (event) Not sure [facility] Start: 02-26-2022 End: 10-20-2022 Sex Assigned At [facility] Work Phone: Start: 1945 Sex Assigned At Male F [facility] How hard is it for y ou to pay for the very basics like food, housing, medical care, and heating Not hard at all [facility] Work Phone: (I/We) worried wheth er (my/our) food would run out before (I/we) got money to buy more. Never true [facility] Work Phone: In the past 12 month s, was there a time when you were not able to pay the mortgage or rent on time? No [facility] Work Phone: Start: 03-18-2023 Alcohol intake Ex-drinker (finding) [facility] How often to you hav e a drink containing alcohol? Never [facility] Medical Equipment Procedure Code Equipment Code Equipment Original Text Equipment Identifier Dates Tray Powerline S urecuff 5fr Polyurethane Catheter 1 Lumen Microintroducer - [id number] Start: 12-06-2021 Clinical Notes 06-05-2021 to [...] (ICD-10 - Z89.619) WC dependent. 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 He is being transported by a water taxi driver. He states he took insulin breakfast and lunch was served early.They gave him his insulin for lunch but he was not very hungry and didn't eat much States bg levels are fluctuating [facility] Exercise: none Hypoglycemia: [...] mellitus with stage 3a chronic kidney disease ([facility]/HCC) - Primary Relevant Medications Lantus SoloStar 100 [...] mouth in the morning. 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 No bleeding complications Dec, Hyperlipidemia LDL goal [...] (current) use of insulin (ICD-10 - Z79.4) [facility] Other 10-26-2023 Evaluation note* Encounter Date Diagnosis Assessment Notes Treatment Notes Treatment Clinical Notes Nov, Longstanding persistent atrial fibrillation (ICD-10 - I48.11) This patient is in NSR or rate controlled. This patient is anticoagulated to prevent thromboembolic events. They are maintaining 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 No bleeding complications Oct, Type 1 diabetes [...] - Z94.0) Continue routine surveillance labs. Oct, [facility] (current) use of insulin (ICD-10 - Z79.4) [facility] Other 09-01-2023 Miscellaneous Notes* Telephone Encounter - Mary Martinez - 10/16/2022 1:08 PM EDT Pharmacy comment: REQUEST FOR 90 DAYS PRESCRIPTION. DX Code Needed. 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 No bleeding complications Sep, Type 1 diabetes [...] risk for cerebrovascular and cardiovascular disease. Sep, [facility] (current) use of insulin (ICD-10 - Z79.4) Sep, Kidney transplant status (ICD-10 - Z94.0) f/u transplant clinic Continue surveillance labs [facility] Other 08-08-2023 Miscellaneous Notes* Telephone Encounter - Ariadna Mcdowell Tech - 09/22/2022 8:58 AM EDT Pharmacy requesting refills as follows: Requested Prescriptions Pending Prescriptions Disp Refills tacrolimus IR (PROGRAF) 1 mg capsule Sig: Take 1 capsule by mouth DAILY AT 6 PM. Please review and advise. Ariadna Mcdowell, [facility]* Encounter Date Diagnosis Assessment Notes Treatment Notes Treatment Clinical Notes Aug, Longstanding persistent atrial fibrillation (ICD-10 - I48.11) This patient is in NSR or rate controlled. This patient is anticoagulated to prevent thromboembolic events. They are maintaining 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 No s/s bleeding Aug, Type 1 diabetes [...] risk for cerebrovascular and cardiovascular disease. 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 Lightheaded in the office today, as BP is very low. He denies chest pain, SOB, palpitations, and bleeding on warfarin. Had routine labs last week. Review of Systems Musculoskeletal: Positive for arthritis, joint pain and myalgias. Neurological: Positive for light-headedness. All other systems reviewed and are negative.[facility] 09-09-2022 NoteUT Electrophysiology Consult Note Reason for [...] at about 50-60 systolic. patient with friend/ water taxi driver from facility, we will take patient to the ER for evaluation --------- Per dr. Alvarez 03/2021 Mr. Almonte, [place] , presents to clinic for routine follow [...] of the right coronary artery with robust dbag-tz-[id number] collaterals. 5. Normal global left ventricular systolic [...] Follow up with Dr. Galvez in the [facility] in the next 2 weeks; he may follow up with Dr. Orosco as needed for interventional issues. 5. Follow up with Dr. Devon Moreira as scheduled. 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 No bleeding complications Jul, Type 1 diabetes [...] risk for cerebrovascular and cardiovascular disease. Jul, [facility] (current) use of insulin (ICD-10 - Z79.4) Jul, Kidney transplant status (ICD-10 - Z94.0) Monthly labs, ongoing surveillance from transplant clinic [facility] Other 05-15-2023 Progress note Author Sadia Aguilar [facility] June 29, 2022 2:47pm Note Date/Time June 29, 2022 2:46p m [facility] [address] [place] [address] Wound Center Provider Note Signed Patient: Alex Almonte MR#: [id number] : 1945 Acct:[id number] Age/Sex: 76 / M Copies to: DO Sadia Whyte APRN~ HPI Date of Visit Date of Visit: Date of Service: 06/29/2022 Time of Service: 14:45 Narrative HPI: 12/30/21 Alex is a 76 year old male presenting to [facility] wound care for aninitial visit for eval and treatment of a sacral/coccyx area pressure ulcer. [facility] There is an SCENERY BUILDER present for the visit. Medicalhoney gel will [...] his brief that was cleaned by this literary writer as well as another nursing staff [...] from initial visit here Mode of Arrival/ Systems Analyst Developer: Facility vehicle Assistive Device Used Today: Wheelchair and Indra Lives with:: Care/Nursing Facility Appetite Description: Within Normal Limits Who helps w/ dressing change?: Nursing Facility Why Do You Need Help?: Can't Reach Ulcer, Limited mobility and Taxing effort to leave home Smoking Status: Former smoker [facility] Medical History (Updated 03/03/22 @ 14:41 [...] Ulcer/Injury Staging: Unstageable Bed Appearance: Beefy Red, Three Points, Yellow and Rolled Edges Percent of Wound [...] By: <Electronically signed by DAVID Aguilar> 06/29/221446 [facility] Work Phone: 1(786) 205-965605-11-2023 Evaluation note* Encounter Date Diagnosis Assessment Notes [...] are maintaining 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 No bleeding complications June, Hyperlipidemia LDL goal <100 (ICD-10 - E78.5) Instructed on diet and exercise with continued statin therapy.Discussed the beneficial effects of lowering cholesterol in reducing the risk for cerebrovascular and cardiovascular disease. 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 (ICD-10 - Z79.4) June, Kidney transplant status (ICD-10 - Z94.0) No s/s rejection [facility] Other 04-24-2023 Progress note Author Sadia Aguilar [facility] June 08, 2022 2:10pm Note Date/Time June 08, 2022 2:1 0pm [facility] [address] [place] [address] Wound Center Provider Note Signed Patient: Alex Almonte MR#: [id number] : 1945 Acct:[id number] Age/Sex: 76 / M Copies to: DO Sadia Whyte APRN~ HPI Date of Visit Date of Visit: Date of Service: 06/08/2022 Time of Service: 14:07 Narrative HPI: 12/30/21 Alex is a 76 year old male presenting to [facility] wound care for aninitial visit for eval and treatment of a sacral/coccyx area pressure ulcer. [facility] resides [facility]. There is an SCENERY BUILDER present for the visit. Medicalhoney gel will [...] his brief that was cleaned by this literary writer as well as another nursing staff [...] from initial visit here Mode of Arrival/ Systems Analyst Developer: Facility vehicle Assistive Device Used Today: Wheelchair and Indra Lives with:: Care/Nursing Facility Appetite Description: Within Normal Limits Who helps w/ dressing change?: Nursing Facility Why Do You Need Help?: Can't Reach Ulcer, Limited mobility and Taxing effort to leave home Smoking Status: Former smoker [facility] Medical History (Updated 03/03/22 @ 14:41 [...] Ulcer/Injury Staging: Unstageable Bed Appearance: Beefy Red, Three Points, Yellow and Rolled Edges Percent of Wound [...] <Electronically signed by DAVID Aguilar> 06/08/22 1410 [facility] Work Phone: 1(745) 729-399504-21-2023 Evaluation note* Encounter Date Diagnosis Assessment Notes [...] are maintaining 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 May, [facility] (current) use of insulin (ICD-10 - Z79.4) May, Kidney transplant status (ICD-10 - Z94.0) routine labs per clinic. 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 No open ulcerations present Pain controlled [facility] Other 03-27-2023 Progress note Author Sadia Aguilar [facility] May 11, 2022 1:41pm Note Date/Time May 11, 2022 1:4 0pm [facility] [address] [place] [address] Wound Center Provider Note Signed Patient: Alex Almonte MR#: [id number] : 1945 Acct:[id number] Age/Sex: 76 / M Copies to: DO Sadia Whyte APRN~ HPI Date of Visit Date of Visit: Date of Service: 05/11/2022 Time of Service: 13:38 Narrative HPI: 12/30/21 Alex is a 76 year old male presenting to [facility] wound care for aninitial visit for eval and treatment of a sacral/coccyx area pressure ulcer. He resides at [facility]. There is an SCENERY BUILDER present for the visit. Medicalhoney gel will [...] his brief that was cleaned by this literary writer as well as another nursing staff [...] from initial visit here Mode of Arrival/ Systems Analyst Developer: Facility vehicle Assistive Device Used Today: Wheelchair and Indra Lives with:: Care/Nursing Facility Appetite Description: Within Normal Limits Who helps w/ dressing change?: Nursing Facility Why Do You Need Help?: Can't Reach Ulcer, Limited mobility and Taxing effort to leave home Smoking Status: Former smoker [facility] Medical History (Updated 03/03/22 @ 14:41 [...] Ulcer/Injury Staging: Unstageable Bed Appearance: Beefy Red, Three Points and Yellow Percent of Wound Bed Granulated/Red: [...] by DAVID Aguilar> 05/11/22 1341 [facility] Work Phone: [phone] Evaluation note* Encounter Date Diagnosis Assessment Notes [...] are maintaining 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 Apr, Type 1 diabetes mellitus with hyperglycemia [...] are reviewed at the office visit Apr, [facility] (current) use of insulin (ICD-10 - Z79.4) Apr, Kidney transplant status (ICD-10 - Z94.0) Serial labs by clinic Hydrate, avoid NSAIDS [facility] Other 03-10-2023 NoteHNO ID: [id number] Author: Keyur Brown MD Service: ? Author Type: Physician Type: Progress Notes Filed: 04/24/2022 10:32 AM Note Text: Encounter opened in error, patient not seen.[facility]02-28-2023 Progress note Author Sadia Aguilar [facility] April 14, 2022 2:19pm Note Date/Time April 14, 2022 2:18pm [facility] [address] [place] [address] Wound Center Provider Note Signed Patient: Alex Almonte MR#: [id number] : 1945 Acct:[id number] Age/Sex: 76 / M Copies to: DO Sadia Whyte APRN~ HPI Date of Visit Date of Visit: Date of Service: 04/14/2022 Time of Service: 14:18 Narrative HPI: 12/30/21 Alex is a 76 year old male presenting to [facility] wound care for aninitial visit for eval and treatment of a sacral/coccyx area pressure ulcer. [facility] resides [facility]. There is an SCENERY BUILDER present for the visit. Medicalhoney gel will [...] his brief that was cleaned by this literary writer as well as another nursing staff [...] from initial visit here Mode of Arrival/ Systems Analyst Developer: Facility vehicle Assistive Device Used Today: Wheelchair and Indra Lives with:: Care/Nursing Facility Appetite Description: Within Normal Limits Who helps w/ dressing change?: Nursing Facility Why Do You Need Help?: Can't Reach Ulcer, Limited mobility and Taxing effort to leave home Smoking Status: Former smoker [facility] Medical History (Updated 03/03/22 @ 14:41 [...] Ulcer/Injury Staging: Unstageable Bed Appearance: Beefy Red, Three Points and Yellow Percent of Wound Bed Granulated/Red: [...] By: <Electronically signed by DAVID Aguilar> 04/14/221418 [facility] Work Phone: 1(135) 546-333502-16-2023 NotePatient Outreach (KIMBERLY) ALEX ALMONTE ([id number]) 1945 M TRN Date Time Provider Department 04/02/22 [facility] During your visit today, we recorded the following information about you: Allergies As of Date: 04/02/2022 Noted Allergy Reaction PYRIDOSTIGMINE BROMIDE 08/04/2021 8 - GI Upset Date Reviewed: 02/26/2022 Reviewed by: Braden Abel MA - Fully Assessed Visit Diagnosis:Screening for genitourinary condition [Z13.89] Order(s):URINALYSIS, REFLEX MICROSCOPIC [[id number]] Order #: [id number] Prescriptions as of 04/06/2022 - tacrolimus IR [...] by mouth daily with lunch. 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 Requested Prescriptions Signed Prescriptions Disp Refills tacrolimus IR (PROGRAF) 1 mg capsule 180 capsule 4 Sig: TAKE 2 CAPSULES BY MOUTH DAILY AT 6AM*Z94.0* Authorizing Provider: VAN OLIVAREZ APRN.CNP * Telephone Encounter - Katina Duqeu - 03/23/2022 11:30 AM EST Patient's request for medication is as follows: Requested Prescriptions Pending Prescriptions Disp Refills tacrolimus IR (PROGRAF) 1 mg capsule [Pharmacy Med Name: TACROLIMUS 1 MG CAPSULE (IR)] 180 capsule 4 Sig: TAKE 2 CAPSULES BY MOUTH DAILY AT 6AM*Z94.0* Please approve the above prescription(s) to electronically send to pharmacy. Katina Duque documented in this encounterWestern [facility] Hospital02-07-2023 Progress note Author Sadia Aguilar [facility] March 24, 2022 3:00pm Note Date/Time March 24, 2022 2 :59pm [facility] [address] [place] [address] Wound Center Provider Note Signed Patient: Alex Almonte MR#: [id number] : 1945 Acct:[id number] Age/Sex: 76 / M Copies to: DO Sadia Whyte APRN~ HPI Date of Visit Date of Visit: Date of Service: 03/24/2022 Time of Service: 14:58 Narrative HPI: 12/30/21 Alex is a 76 year old male presenting to [facility] wound care for aninitial visit for eval and treatment of a sacral/coccyx area pressure ulcer. [facility] resides [facility]. There is an SCENERY BUILDER present for the visit. Medicalhoney gel will [...] his brief that was cleaned by this literary writer as well as another nursing staff [...] from initial visit here Mode of Arrival/ Systems Analyst Developer: Facility vehicle Assistive Device Used Today: Wheelchair and Indra Lives with:: Care/Nursing Facility Appetite Description: Within Normal Limits Who helps w/ dressing change?: Nursing Facility Why Do You Need Help?: Can't Reach Ulcer, Limited mobility and Taxing effort to leave home Smoking Status: Former smoker [facility] Medical History (Updated 03/03/22 @ 14:41 [...] Ulcer/Injury Staging: Unstageable Bed Appearance: Beefy Red, Three Points and Yellow Percent of Wound Bed Granulated/Red: [...] by DAVID Aguilar> 03/24/22 1500 [facility] Work Phone: [phone]) 716-808801-17-2023 Progress note Author Sadia Aguilar [facility] March 03, 2022 2:41pm Note Date/Time March 03, 2022 2 :41pm [facility] [address] [place] [address] Wound Center Provider Note Signed Patient: Alex Almonte MR#: [id number] : 1945 Acct:[id number] Age/Sex: 76 / M Copies to: DO Sadia Whyte APRN~ HPI Date of Visit Date of Visit: Date of Service: 03/03/2022 Time of Service: 14:38 Narrative HPI: 12/30/21 Alex is a 76 year old male presenting to [facility] wound care for aninitial visit for eval and treatment of a sacral/coccyx area pressure ulcer. [facility] resides [facility]. There is an SCENERY BUILDER present for the visit. Medicalhoney gel will [...] his brief that was cleaned by this literary writer as well as another nursing staff [...] from initial visit here Mode of Arrival/ Systems Analyst Developer: Facility vehicle Assistive Device Used Today: Wheelchair and Indra Lives with:: Care/Nursing Facility Appetite Description: Within Normal Limits Who helps w/ dressing change?: Nursing Facility Why Do You Need Help?: Can't Reach Ulcer, Limited mobility and Taxing effort to leave home Smoking Status: Former smoker [facility] Medical History (Updated 03/03/22 @ 14:41 [...] Ulcer Pressure Ulcer/Injury Staging: Unstageable Bed Appearance: Three Points and Yellow Percent of Wound Bed Granulated/Red: 90 Percent of Devitalized: 10 Length (cm): 2.2 Width (cm): 1.8 Depth (cm): 1.9 CM Sq: 3.960 Surrounding Tissue Appearance: Three Points, Hyperpigmented and Satellite lesions Surrounding Tissue Temp: [...] <Electronically signed by DAVID Aguilar> 03/03/22 1441 [facility] Work Phone: [phone] 453-933501-13-2023 Miscellaneous Notes* Telephone Encounter - RAUL Davidson - 02/27/2022 10:24 AM EST Patient phones requesting refills as follows: Per pts sister takes 1 mg in AM and 1 mg in PM Requested Prescriptions Pending Prescriptions Disp Refills tacrolimus IR (PROGRAF) 1 mg capsule Sig: Take 2 capsules by mouth DAILY (6 AM). Please review and advise. RAUL Davidson documented in this encounterWestern Reserve Hospital01-12-2023 NoteHNO ID: [id number] Author: Hina Peterson MD Service: ? Author Type: Physician Type: Progress Notes Filed: 02/26/2022 4:31 PM Note Text: [facility] [place] DEPARTMENT OF VASCULAR SURGERY OUTPATIENT VISIT DATE [...] his postop visit. He has been in [facility] since then and has been recovering from his acute on chronic congestive heart failure. His wound has largely been healing without any issues and the maxwell and sutures were removed at the nursing facility. He comes here with a lateral wound eschar. He denies any fevers, chills, or any drainage. He is on anticoagulation. 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 Patient on mycophenolate mofetil , cellcept and prednisone Mixed hyperlipidemia due to type 2 diabetes mellitus ([facility]) 11/29/2021 Osteomyelitis ([facility]) 11/29/2021 Paroxysmal atrial fibrillation ([facility]) Renal transplant, status post SA node dysfunction ([facility]) s/p pacemaker Type 2 diabetes mellitus with diabetic neuropathy, with long-term current use of insulin ([facility]) 02/24/2002 PAST SURGICAL HISTORY Procedure Laterality [...] by mouth daily with lunch. Magic Cup [place] with lunch aspirin, enteric coated (ASPIRIN, ENTERIC COATED) 81 mg EC tablet Take 1 tablet by mouth once daily. predniSONE (DELTASONE) 5 mg tablet TAKE 1 TABLET BY MOUTH EVERY DAY oxyCODONE IR (ROXICODONE) 5 mg immediate release tablet 1-2 tablets by ORAL/FEEDING TUBE route every 3 hours as needed. Food Supplement, Lactose-Free (ENSURE MAX (more content not included)... [facility]01-12-2023 History of Present illness Narrative* Hina Peterson MD - 02/26/2022 4:25 PM EST Images from the original note were not included. [facility] [place] DEPARTMENT OF VASCULAR SURGERY OUTPATIENT VISIT DATE [...] his postop visit. He has been in [facility] since then and has been recovering from his acute on chronic congestive heart failure. His wound has largely been healing without any issues and the maxwell and sutures were removed at the [facility]. He comes here with a lateral wound eschar. He denies any fevers, chills, or any drainage. He is on anticoagulation. 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 Patient on mycophenolate mofetil ,cellcept and prednisone Mixed hyperlipidemia due to type 2 diabetes mellitus ([facility]) 11/29/2021 Osteomyelitis ([facility]) 11/29/2021 Paroxysmal atrial fibrillation ([facility]) Renal transplant, status post SA node dysfunction ([facility]) s/p pacemaker Type 2 diabetes mellitus with diabetic neuropathy, with long-term current use of insulin ([facility]) 02/24/2002 PAST SURGICAL HISTORY Procedure Laterality [...] by mouth daily with lunch. Magic Cup [place] with lunch aspirin, enteric coated (ASPIRIN, ENTERIC [...] 2022 TIME: 4:26 PM documented in this encounterWestern Reserve Hospital01-05-2023 Miscellaneous Notes* Telephone Encounter - Gwen [...] Home and cell number(Ask for Alex's nurse) [phone] Diagnosis 4 mo f/u wound check Yumiko Mcclain documented in this encounterWestern Reserve Hospital01-05-2023 Miscellaneous Notes* Telephone Encounter - Augusta Medrano RN - 02/19/2022 11:11 AM EST Alex Almonte's nursing facility, [facility], called regarding elevated tacrolimus level (23.9). Spoke with bedside nurse, Zoe, mukul. Level is from last week- unable to clearly determine if medications were held prior to lab work. Reviewed with nurse morning labs should occur prior to lab draws. Patient is scheduled for repeat labs tomorrow. Will assess new level. Augusta Medrano RN documented in this encounterWestern Reserve Hospital01-04-2023 Miscellaneous Notes* Telephone Encounter - Martina [...] advise. Mercedez Tavares MA documented in this encounterWestern Reserve Hospital12-27-2022 Progress note Author Sadia Aguilar [facility] February 10, 2022 3:47pm Note Date/Time February 10, 2022 3:47pm [facility] [address] [place] [address] Wound Center Provider Note Signed Patient: Alex Almonte MR#: [id number] : 1945 Acct:[id number] Age/Sex: 76 / M Copies to: DO Sadia Whyte APRN~ HPI Date of Visit Date of Visit: Date of Service: 02/10/2022 Time of Service: 15:44 Narrative HPI: 12/30/21 Alex is a 76 year old male presenting to [facility] wound care for aninitial visit for eval and treatment of a sacral/coccyx area pressure ulcer. [facility] There is an SCENERY BUILDER present for the visit. Medicalhoney gel will [...] his brief that was cleaned by this literary writer as well as another nursing staff member, few weeks to follow up Subjective Pain Coccyx: Pain Description: Intermittent Pain Intensity: 0 Wound/Ulcer History When did wound start?: 4 weeks ago- from initial visit here Mode of Arrival/ Systems Analyst Developer: Facility vehicle Assistive Device Used Today: Wheelchair and Indra Lives with:: Care/Nursing Facility Appetite Description: Within Normal Limits Who helps w/ dressing change?: Nursing Facility Why Do You Need Help?: Can't Reach Ulcer, Limited mobility and Taxing effort to leave home Smoking Status: Former smoker [facility] Medical History (Updated 01/20/22 @ 14:21 [...] Ulcer Pressure Ulcer/Injury Staging: Unstageable Bed Appearance: Three Points and Yellow Percent of Wound Bed Granulated/Red: 90 Percent of Devitalized: 10 Length (cm): 2.5 Width (cm): 2.3 Depth (cm): 2.1 CM Sq: 5.750 Surrounding Tissue Appearance: Three Points, Hyperpigmented and Satellite lesions Surrounding Tissue Temp: [...] <Electronically signed by DAVID Aguilar> 02/10/22 1547 [facility] Work Phone: 1(265) 501-201612-22-2022 NoteHNO ID: [id number] Author: Asia Pike MD Service: ? Author Type: Physician Type: Progress Notes Filed: 02/05/2022 9:38 AM Note Text: [facility] [facility] Follow up Portions of this note [...] Indra scale at [facility]: 166.2 lbs per patient. Bed sore on coccyx causing discomfort. Being changed regularly at SNF- reported to be smaller around but still as deep. Patient not very up to date with medications. Patient brought paperwork from [facility] with all medications being received. Patient unsure if they have been drawing labs regularly. Last Tac from 01/19: 12.9 and K 5.9. In need of current labs. Lab orders will be sent with patient and follows as below: Kidney and Pancreas Transplant Standing Lab Orders [id number] [place], [place] [address] February 05, 2022 Alex Almonte 1945 [id number] STANDARD TESTING: Diagnosis Codes: Z94.0 Kidney Transplant [...] AT YOUR LABORATORY FACILITY AND FAX TO [phone]. PLEASE CALL [phone]. Provider: Dr. Pike Current Outpatient Medications Medication [...] by mouth daily with lunch. Magic Cup [place] with lunch aspirin, enteric coated (ASPIRIN, ENTERIC COATED) 81 mg EC tablet Take 1 tablet by mouth once daily. atorvastatin (LIPITOR) 40 mg tablet 1 tablet by ORAL/FEEDING TUBE route daily at bedtime. (more content not included)...[facility]12-22-2022 History of Present illness Narrative* Asia Pike MD - 02/05/2022 8:20 AM EST Images from the original note were not included. [facility] [facility] Follow up Portions of this note [...] Indra scale at [facility]: 166.2 lbs per patient. Bed sore on coccyx causing discomfort. Being changed regularly at SNF- reported to be smaller around but still as deep. Patient not very up to date with medications. Patient brought paperwork from [facility] with all medications being received. Patient unsure if they have been drawing labs regularly. Last Tac from 01/19: 12.9 and K 5.9. In need of current labs. Lab orders will be sent with patient and follows as below: Kidney and Pancreas Transplant Standing Lab Orders [id number] [facility] [address] [place], [place] [address] February 05, 2022 Alex Almonte 1945 [id number] STANDARD TESTING: Diagnosis Codes: Z94.0 Kidney Transplant [...] AT YOUR LABORATORY FACILITY AND FAX TO [phone]. PLEASE CALL [phone]. Provider: Dr. Pike Current Outpatient Medications Medication [...] by mouth daily with lunch. Magic Cup [place] with lunch aspirin, enteric coated (ASPIRIN, ENTERIC [...] All other system reviews negative. Augusta Medrano associate dean: February 05, 2022 9:34 AM I have [...] complexity. Asia Pike MD documented in this encounterWestern Reserve Hospital12-06-2022 Progress note Author Sadia Aguilar [facility] January 20, 2022 2:21pm Note Date/Time January 20, 2022 2 :21pm [facility] [address] [place] [address] Wound Center Provider Note Signed Patient: Alex Almonte MR#: [id number] : 1945 Acct:[id number] Age/Sex: 76 / M Copies to: Devon Moreira,DO Sadia Aguilar APRN~ HPI Date of Visit Date of Visit: Date of Service: 01/20/2022 Time of Service: 14:17 Narrative HPI: 12/30/21 Alex is a 76 year old male presenting to [facility] wound care for aninitial visit for eval and treatment of a sacral/coccyx area pressure ulcer. [facility] There is an SCENERY BUILDER present for the visit. Medicalhoney gel will [...] from initial visit here Mode of Arrival/ Systems Analyst Developer: Facility vehicle Assistive Device Used Today: Wheelchair and Indra Lives with:: Care/Nursing Facility Appetite Description: Within Normal Limits Who helps w/ dressing change?: Nursing Facility Why Do You Need Help?: Can't Reach Ulcer, Limited mobility and Taxing effort to leave home Smoking Status: Former smoker [facility] Medical History (Updated 01/20/22 @ 14:21 [...] Ulcer Pressure Ulcer/Injury Staging: Unstageable Bed Appearance: Three Points and Yellow Percent of Wound Bed Granulated/Red: 40 Percent of Devitalized: 60 Length (cm): 5.2 Width (cm): 3.4 Depth (cm): 1.8 CM Sq: 17.680 Surrounding Tissue Appearance: Three Points and Hyperpigmented Surrounding Tissue Temp: Warm Drainage [...] <Electronically signed by DAVID Aguilar> 01/20/22 1421 [facility] Work Phone: 1(945) 449-609812-06-2022 Miscellaneous Notes* Telephone Encounter - Van Olivarez APRN.CNP - 01/20/2022 1:12 PM EST Labs noted from yesterday. Pt is currently residing at [facility], I spoke with the Nurse, the results has been addressed by Physician caring for pt. He had been placed on Chlor Con and this has been discontinued and hyperkalemia has been treated. Van Olivarez APRN.DIAMANTE documented in this encounterWestern Reserve Hospital11-28-2022 Surgical operation note* Brief Op Note - Misbah Landis PA-C - 01/12/2022 10:41 AM EST BRIEF OPERATIVE / PROCEDURE NOTE LOG ID: [id number] SURGERY/PROCEDURE DATE: 01/12/2022 INCISION/PROCEDURE START TIME: 10:32 AM INCISION CLOSE/PROCEDURE END TIME: 10:35 AM SURGEON(S)/PROCEDURALIST(S) AND PRODUCT DESIGN SPECIALIST(S): Misbah Landis PA-C SURGERY/PROCEDURE(S): Removal tunneled vascular access catheter under local anesthesia ANESTHESIA: Procedural Sedation FINDINGS: Catheter removed intact ESTIMATED BLOOD LOSS: 0 ml SPECIMENS: None COMPLICATIONS: None PRE-OP/PRE-PROCEDURE DIAGNOSIS: Foot Ulcer POST-OP/POST-PROCEDURE DIAGNOSIS: Same as Preop SIGNATURE: Misbah Landis PA-C PATIENT NAME: Alex Almonte DATE: January 12, 2022 TIME: 10:42 AM documented in this encounterWestern Reserve Hospital11-22-2022 Nurse Note* Laxmi Archibald RN - 01/06/2022 1:55 PM EST Pre-procedure instructions: Contacted patient's sister, Munira Brothers and nurse at [facility], Jada ([phone]) andconfirmed appt. for Gerhard removal scheduled on 01/12/22, at [facility]. If instructions are not followed your [...] signed. Arrival at 9:30am to desk QB-1 ([facility]) and check in for your procedure. Fondant Machine Operator/Transportation: How will you be arriving for your procedure? Ambulance service. To be arranged by [facility]. If you develop any of the following symptoms before your procedure, please call [phone]. Chills, joint pain, rash, sore throat, cough, loss of smell, reddened eyes, vomiting, abdominal pains, diarrhea, loss of taste, severe headache, weakness, bruising or bleeding, fever, muscle pain, shortness of breath Recovery expectations: You can expect to be in recovery for 30 minutes following the procedure. Written instructions provided to patient via [employer] If you have any questions please call [phone] documented in this encounterWestern Reserve Hospital11-15-2022 Progress note Author Sadia Aguilar [facility] December 30, 2021 1:49pm Note Date/Time December 30, 2021 1:49pm [facility] [address] [place] [address] Wound Center Provider Note Signed Patient: Alex Almonte MR#: [id number] : 1945 Acct:[id number] Age/Sex: 76 / M Copies to: DO Sadia Whyte APRN~ HPI Date of Visit Date of Visit: Date of Service: 12/30/2021 Time of Service: 13:44 Narrative HPI: 12/30/21 Alex is a 76 year old male presenting to [facility] wound care for aninitial visit for eval and treatment of a sacral/coccyx area pressure ulcer. [facility] There is an SCENERY BUILDER present for the visit. Medicalhoney gel will [...] start?: 4 weeks ago Mode of Arrival/ Systems Analyst Developer: Facility vehicle Assistive Device Used Today: Wheelchair and Indra Lives with:: Care/Nursing Facility Appetite Description: Within Normal Limits Who helps w/ dressing change?: Nursing Facility Why Do You Need Help?: Can't Reach Ulcer, Limited mobility and Taxing effort to leave home Smoking Status: Former smoker [facility] Medical History (Updated 12/30/21 @ 13:49 [...] 0.1 CM Sq: 38.500 Surrounding Tissue Appearance: Three Points and Hyperpigmented Surrounding Tissue Temp: Warm Drainage [...] <Electronically signed by DAVID Aguilar> 12/30/21 1349 [facility] Work Phone: 1(490) 794-467711-15-2022 History of Present illness Narrative* Paresh Fonscea MD - 12/30/2021 9:52 AM EST INFECTIOUS [...] is currently at [facility] in [facility] Seen on video together with Zoe -history obtained from bedside nursing. he is getting up in a chair, working with PT diet is back to regular hes doing well. 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 has scabs on the R lateral side but no wound care concerns. It continues to heal. He has a follow-up with vascular surgery later December 2021. has a sacral wound -- he has local wound care following this at [facility] WBC 6.0, creatinine -- 0.8. [...] by mouth daily with lunch. Magic [employer] [place] with lunch aspirin, enteric coated (ASPIRIN, ENTERIC [...] is a 76 year old male from [facility]. 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 History of PAD CAD status post CABG, diabetes, atrial fibrillatioN He originally presented [facility] for having altered mental status [...] post right heel I&D at [facility] on 11/24/2021. 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 4. CKD - s/p gerhard placement 5. immunocompromised Status post right open above the ankle [id number]/17 - Enterobacter and MRSA from cultures Gram-positive [...] will need to coordinate with his SNF [phone] --our ID office will need to arrange for IR gerhard removal. Return to ID as needed 10 Minutes spent via virtual visit. SIGNATURE: Paresh Fonseca MD PATIENT NAME: Alex Almonte DATE: December 30, 2021 TIME: 9:52 AM documented in this encounterWestern Reserve Hospital11-01-2022 Miscellaneous Notes* Telephone Encounter - Sulma Pardo - 12/16/2021 3:13 PM EDT Pt occupational therapy specialist is requesting orders for Stomp nayeushield to be taken off pressure relief because it is causing sores on the thigh. Thanks, Sulma Pardo Dinker documented in this encounterWestern Reserve Hospital10-31-2022 Miscellaneous Notes* Telephone Encounter - Gwen Juni Adm Asst I - 12/15/2021 4:11 PM EDT Rupa LYLES from [facility] [phone] called to report IV Vancomycin was started until today. Patient missed 3 days, should patient makeup missed doses? Please advise. Gwen Juni Adm Asst I documented in this encounterWestern Reserve Hospital10-21-2022 Instructions* Patient Instructions* Paresh Fonseca MD [...] serious illness Are taking any medications (prescription, mobw-jdx-hqcgkhe, vitamins, or herbal products) How will I receive EVUSHELD? EVUSHELD consists of two investigational medicines, tixagevimab and cilgavimab. You will receive 1 dose of EVUSHELD, consisting of 2 separate injections (tixagevimab and cilgavimab). EVUSHELD will be given to you by your healthcare provider as 2 intramuscular injections, given one after the other. Viruses can exchange trouble shooter time (mutate) and develop into a slightly [...] by certain SARS-CoV-2 variants: Viruses can exchange trouble shooter time (mutate) and develop into a slightly [...] treatment or prevention of COVID-19 go to https://www.fda.gov/ctemkqlnd-numjisnqmknu-fxh- response/xcc-koocj-ehewzqddzz-rtp-lqtsal-yvkwzembu/tkwhyrhjr-him-iqthoyqqzhppy for more information. It is your choice [...] to FDA MedWatch at www.fda.gov/medwatch or call 8-798-MUW-1443 or call [facility] . Additional Information If you have questions, visit the website or call the telephone number provided below. Website Telephone number http://www.[employer] How can I learn more about COVID-19? Ask your healthcare provider. Visit https://www.cdc.gov/COVID19 Contact your local or state public health department. What is an Emergency Use Authorization? The [place] FDA has made EVUSHELD (tixagevimab co-packaged with cilgavimab) available under an emergency access mechanism called an Emergency Use Authorization EUA. The EUA is supported by a Assistant Produce Manager of Health and Human Service ([facility]) declaration that circumstances exist to justify [...] monohydrate, polysorbate 80, sucrose, water. Distributed by: [employer] [place] Manufactured for: [employer] [place] [employer] 2021. All rightsreserved. documented in this encounterWestern Reserve Hospital10-21-2022 Miscellaneous Notes* Telephone Encounter - Paresh Fonseca MD - 12/05/2021 3:05 PM EDT Evusheld (tixagevimab/cilgavimab) Eligibility and Patient Discussion The patient agrees to receive Evusheld (tixagevimab 300 mg and cilgavimab 300 mg) at [place]. The patient verbalized understanding of repeating a COVID test 72 hours prior to the injections. called up patient in response to her mychart message today she tested covid negative on a rapid test on Wednesday this week Discussed evushed fact sheet and she agrees to proceed she will retest again today to be scheduled for Friday 12/08 at [facility] Paresh Fonseca MD documented in this encounterWestern Reserve Hospital10-03-2022 Instructions* Patient Instructions* No Reeder DO - 11/17/2021 4:26 PM EDT -- continue coumadin -- will get vascular ultrasound for vein and artery of your right leg -- will have you see my interventional cardiology partner regarding your peripheral artery disease and if your artery disease is impairing your wound healing for the leg ulcer documented in this encounterWestern Reserve Hospital10-03-2022 History of Present illness Narrative* No eReder DO - 11/17/2021 3:53 PM EDT Images from the original note were not included. [facility] [place] [facility] Department of Cardiovascular Medicine SECTION [...] DVT scan. Leg elevation. No Reeder DO, [facility] Vascular Medicine documented in this encounterWestern Reserve Hospital08-16-2022 History of Past illness Narrative* Problem Noted Date Resolved Date Altered tissue perfusion 022 documented as of this encounter (statuses as of 09/30/2021) [facility] History of Past illness Narrative* Problem Noted Date Resolved Date Altered tissue perfusion 08/16/2 022 documented as of this encounter (statuses as of 10/09/2021) [address]16-2022 History of Past illness Narrative* Problem Noted Date Resolved Date Altered tissue perfusion 16/2 022 documented as of this encounter (statuses as of 11/18/2021) [address]16-2022 History of Past illness Narrative* Problem Noted Date Resolved Date Altered tissue perfusion 16/2 022 documented as of this encounter (statuses as of 12/01/2021) [address]16-2022 History of Past illness Narrative* Problem Noted Date Resolved Date Altered tissue perfusion 16/2 022 documented as of this encounter (statuses as of 12/05/2021) [address]16-2022 History of Past illness Narrative* Problem Noted Date Resolved Date Altered tissue perfusion 09/30/2 022 documented as of this encounter (statuses as of 12/08/2021) [address]16-2022 History of Past illness Narrative* Problem Noted Date Resolved Date Altered tissue perfusion 16/2 022 documented as of this encounter (statuses as of 12/08/2021) [address]16-2022 History of Past illness Narrative* Problem Noted Date Resolved Date Altered tissue perfusion 16/2 022 documented as of this encounter (statuses as of 12/12/2021) [address]16-2022 History of Past illness Narrative* Problem Noted Date Resolved Date Altered tissue perfusion 16/2 022 documented as of this encounter (statuses as of 12/15/2021) [address]16-2022 History of Past illness Narrative* Problem Noted Date Resolved Date Altered tissue perfusion 16/2 022 documented as of this encounter (statuses as of 12/16/2021) [address]16-2022 History of Past illness Narrative* Problem Noted Date Resolved Date Altered tissue perfusion 16/2 022 documented as of this encounter (statuses as of 12/31/2021) [address]16-2022 History of Past illness Narrative* Problem Noted Date Resolved Date Altered tissue perfusion 16/2 022 documented as of this encounter (statuses as of 01/13/2022) [address]16-2022 History of Past illness Narrative* Problem Noted Date Resolved Date Altered tissue perfusion 16/2 022 documented as of this encounter (statuses as of 01/20/2022) [address]16-2022 History of Past illness Narrative* Problem Noted Date Resolved Date Altered tissue perfusion 16/2 022 documented as of this encounter (statuses as of 02/06/2022) [address]16-2022 History of Past illness Narrative* Problem Noted Date Resolved Date Altered tissue perfusion 09/30/2 022 documented as of this encounter (statuses as of 02/20/2022) [address]16-2022 History of Past illness Narrative* Problem Noted Date Resolved Date Altered tissue perfusion 2 022 documented as of this encounter (statuses as of 02/26/2022) [address]16-2022 History of Past illness Narrative* Problem Noted Date Resolved Date Altered tissue perfusion 2 022 documented as of this encounter (statuses as of 02/27/2022) [address]16-2022 History of Past illness Narrative* Problem Noted Date Resolved Date Altered tissue perfusion 2 022 documented as of this encounter (statuses as of 03/21/2022) [address]16-2022 History of Past illness Narrative* Problem Noted Date Resolved Date Altered tissue perfusion 09/30/2 022 documented as of this encounter (statuses as of 03/30/2022) [address]16-2022 History of Past illness Narrative* Problem Noted Date Resolved Date Altered tissue perfusion 09/30/2 022 documented as of this encounter (statuses as of 04/06/2022) [address]16-2022 History of Past illness Narrative* Problem Noted Date Resolved Date Altered tissue perfusion 2 022 documented as of this encounter (statuses as of 05/13/2022) [address]16-2022 History of Past illness Narrative* Problem Noted Date Diagnosed Date Resolved Date Altered tissue perfusion documented as of this encounter (statuses as of 2022) [address]16-2022 History of Past illness Narrative* Problem Noted Date Diagnosed Date Resolved Date Altered tissue perfusion documented as of this encounter (statuses as of 10/29/2022) [address]16-2022 Miscellaneous Notes* Telephone Encounter - Katina [...] to pharmacy. Katina Duque documented in this encounterWestern Reserve Hospital05-31-2022 Miscellaneous Notes* Telephone Encounter - Van [...] and advise. Rosibel Daniel documented in this encounterWestern Reserve Hospital04-21-2022 Miscellaneous Notes* Telephone Encounter - Van Olivarez APRN.CNP - 06/05/2021 4:46 PM EDT Spoke with pt regarding latest results, scr. at baseline. TAC level 8.6 prev two levels in 5 range.He believes latest level would be 12hr trough. No changes for now, if next level >7, can consider if reduction appropriate. He understands. Van Olivarez APRN.CNP documented in this encounterWilson [facility]al[facility]el[facility]* Diagnosis Screening for genitourinary condition Screening for other and unspecified genitourinary condition documented in this encounter [facility] note* Diagnosis Acute deep vein thrombosis (DVT) of proximal end of right lower extremity (HCC)- Primary PAD (peripheral artery disease) ([facility]) Peripheral vascular disease, unspecified Nonhealing ulcer of heel ([facility]) Anticoagulation management encounter Encounter for therapeutic drug monitoring documented in this encounter [facility]* Diagnosis Encounter for prophylactic measures, unspecified- Primary documented in this encounter [facility]* Diagnosis Kidney replaced by transplant- Primary documented in this encounter [facility]* Diagnosis MRSA bacteremia- Primary Bacteremia Diabetic foot ulcer with osteomyelitis ([facility]) Type II or unspecified type diabetes mellitus with other specified manifestations, not stated as uncontrolled ILIANA (acute kidney injury) ([facility]) Acute kidney failure, unspecified documented in this encounter [facility]* Diagnosis Kidney replaced by transplant- Primary 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 [facility] current use of immunosuppressive drug documented in this encounter [facility] note* Diagnosis Hx of BKA, right (HCC)- Primary PAD (peripheral artery disease) ([facility]) Peripheral vascular disease, unspecified Mixed hyperlipidemia due to type 2 diabetes mellitus ([facility]) Type II or unspecified type diabetes mellitus with renal manifestations, uncontrolled(250.42) Type II or unspecified type diabetes mellitus with renal manifestations, uncontrolled Type 2 diabetes mellitus with diabetic neuropathy, with long-term current use of insulin (HCC) Type 2 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, with long-term current use of insulin (HCC) Paroxysmal atrial fibrillation ([facility]) Atrial fibrillation documented in this encounter [facility]* Diagnosis Screening for genitourinary condition Screening for other and unspecified genitourinary condition documented in this encounter [facility] note* Diagnosis Onset Date Resolution Status At high risk for skin breakdown chronic Diabetes chronic Fecal incontinence chronic Limited mobility chronic Poor appetite chronic Pressure ulcer of sacral region, unstageable chronic Candidiasis [facility] Work Phone: Evaluation noteNo InformationNortHorsham Clinic Cash Check Card Other Evaluation note* Diagnosis Kidney replaced by transplant- Primary documented in this encounter [facility] Hospital[facility]* Diagnosis Type 1 diabetes mellitus with [...] COLONOSCOPY 1995,2001, 2014 Hospitalization History see above [place] Other Progress note Author Sadia Aguilar [facility] July 20, 2022 1:48pm Note Date/Time July 20, 2022 1:48p m [facility] [address] [place] [address] Wound Center Provider Note Signed Patient: Alex Almonte MR#: [id number] : 1945 Acct:[id number] Age/Sex: 76 / M Copies to: DO Sadia Whyte, LABORATORY [employer]OWER~ HPI Date of Visit Date of Visit: Date of Service: 07/20/2022 Time of Service: 13:46 Narrative HPI: 12/30/21 Alex is a 76 year old male presenting to [facility] wound care for aninitial visit for eval and treatment of a sacral/coccyx area pressure ulcer. [facility] There is an SCENERY BUILDER present for the visit. Medicalhoney gel will [...] his brief that was cleaned by this literary writer as well as another nursing staff [...] from initial visit here Mode of Arrival/ Systems Analyst Developer: Facility vehicle Assistive Device Used Today: Wheelchair and Indra Lives with:: Care/Nursing Facility Appetite Description: Within Normal Limits Who helps w/ dressing change?: Nursing Facility Why Do You Need Help?: Can't Reach Ulcer, Limited mobility and Taxing effort to leave home Smoking Status: Former smoker [facility] Medical History (Updated 03/03/22 @ 14:41 [...] <Electronically signed by DAVID Aguilar> 07/20/22 1348 [facility] Work Phone: Reason for referral (narrative)* Outpatient Procedure (Routine) - Authorized Specialty Diagnoses / Procedures Referred By Contac t Referred To Contact [facility] Diagnoses PAD (peripheral artery disease) (HCC) Nonhealing ulcer of heel (HCC) Procedures US LEG ARTERIAL PERIPH UNL VAS LAB DUP-SCAN LXTR ART/ARTL BPGS UNI/LMTD STUDY No Reeder DO [address] [place] [address] [facility] [place] [address] Referral ID Status Reason Start Date Expiration Date Visits Requested Visits Authorized [id number] Authorized Auto-Generat ed Referral 11/17/2021 11/17/2022 1 1 * Outpatient Procedure (Routine) - Authorized Specialty Diagnoses / Procedures Referred By Contac t Referred To Contact [facility] Diagnoses Acute deep vein thrombosis (DVT) of proximal end of right lower extremity (HCC) Procedures US LEG VEIN DVT UNL VAS LAB DUP-SCAN XTR VEINS UNILATERAL/LIMITED STUDY No Reeder DO [address] [place] [address] [place] [address] Referral ID Status Reason Start Date Expiration Date Visits Requested Visits Authorized [id number] Authorized Auto-Generat ed Referral 11/17/2021 11/17/2022 1 1 * Consult, Test, Treat (Routine) - Authorized Specialty Diagnoses / Procedures Referred By Contac t Referred To Contact Cardiology Diagnoses PAD (peripheral artery disease) (HCC) Nonhealing ulcer of heel (HCC) Procedures CONSULT TO CARDIOLOGY OFFICE/OUTPATIENT [facility] 60-74 MINUTES Savanah Marcelo MD [address] [place] [address] Referral ID Status Reason Start Date Expiration Date Visits Requested Visits Authorized [id number] Authorized PCP Requested Referral 11/17/2021 11/17/2022 1 1 [facility] Summary Purpose Family History Relationship Condition Age at Onset Recorded Date/T kartik father Aneurysm Unknown father Parkinson's disease Unknown Advance Directives Documents on File Type Date Recorded 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 Advance Directive(s) Latest Code Status [...] Maker Relationship: M ajority of Adult Siblings (agricultural sales representative) DNR-CCA 09/26/2021 11:56 AM 10/01/2021 [...] Decision Maker Relationship: Majority of Adult Siblings (agricultural sales representative) Code Status History Code Status [...] Reason for Visit Chief Complaint Open Wound ([facility]) Reason for Visit At high risk [...] and content) DATE CREATED AUTHOR 02/20/2021 [facility] [employer] [facility] DATE CREATED AUTHOR AUTHOR'S ORGANIZ ATION 07/25/2022 [facility] DATE CREATED AUTHOR AUTHOR'S ORGANIZ ATION 08/16/2022 [facility] DATE CREATED AUTHOR AUTHOR'S ORGANIZ ATION 09/17/2022 [facility] DATE CREATED AUTHOR AUTHOR'S ORGANIZ ATION 01/14/2023 [facility] DATE CREATED AUTHOR AUTHOR'S ORGANIZ ATION 03/20/2023 [facility] dical Specialists EPIC Source Comments (unrecognize d section and content) In the event this informatio n is protected by the Federal Confidentiality of Alcohol and Drug Abuse Patient Records regulations: The Federal rules restrict any use of the information to criminally investigate or prosecute any alcohol or drug abuse patient.[facility] HospitalIn the event this information is protected by the Federal Confidentiality of Alcohol and Drug Abuse Patient Records regulations: The Federal rules restrict any use of the information to criminally investigate or prosecute any alcohol or drug abuse patient.[facility] HospitalIn the event this information is protected by the Federal Confidentiality of Alcohol and Drug Abuse Patient Records regulations: The Federal rules restrict any use of the information to criminally investigate or prosecute any alcohol or drug abuse patient.[facility] HospitalIn the event this information is protected by the Federal Confidentiality of Alcohol and Drug Abuse Patient Records regulations: The Federal rules restrict any use of the information to criminally investigate or prosecute any alcohol or drug abuse patient.[facility] HospitalIn the event this information is protected by the Federal Confidentiality of Alcohol and Drug Abuse Patient Records regulations: The Federal rules restrict any use of the information to criminally investigate or prosecute any alcohol or drug abuse patient.[facility] HospitalIn the event this information is protected by the Federal Confidentiality of Alcohol and Drug Abuse Patient Records regulations: The Federal rules restrict any use of the information to criminally investigate or prosecute any alcohol or drug abuse patient.[facility] HospitalIn the event this information is protected by the Federal Confidentiality of Alcohol and Drug Abuse Patient Records regulations: The Federal rules restrict any use of the information to criminally investigate or prosecute any alcohol or drug abuse patient.[facility] HospitalIn the event this information is protected by the Federal Confidentiality of Alcohol and Drug Abuse Patient Records regulations: The Federal rules restrict any use of the information to criminally investigate or prosecute any alcohol or drug abuse patient.[facility] HospitalIn the event this information is protected by the Federal Confidentiality of Alcohol and Drug Abuse Patient Records regulations: The Federal rules restrict any use of the information to criminally investigate or prosecute any alcohol or drug abuse patient.[facility] HospitalIn the event this information is protected by the Federal Confidentiality of Alcohol and Drug Abuse Patient Records regulations: The Federal rules restrict any use of the information to criminally investigate or prosecute any alcohol or drug abuse patient.[facility] HospitalIn the event this information is protected by the Federal Confidentiality of Alcohol and Drug Abuse Patient Records regulations: The Federal rules restrict any use of the information to criminally investigate or prosecute any alcohol or drug abuse patient.[facility] HospitalIn the event this information is protected by the Federal Confidentiality of Alcohol and Drug Abuse Patient Records regulations: The Federal rules restrict any use of the information to criminally investigate or prosecute any alcohol or drug abuse patient.[facility] HospitalIn the event this information is protected by the Federal Confidentiality of Alcohol and Drug Abuse Patient Records regulations: The Federal rules restrict any use of the information to criminally investigate or prosecute any alcohol or drug abuse patient.[facility] HospitalIn the event this information is protected by the Federal Confidentiality of Alcohol and Drug Abuse Patient Records regulations: The Federal rules restrict any use of the information to criminally investigate or prosecute any alcohol or drug abuse patient.[facility] HospitalIn the event this information is protected by the Federal Confidentiality of Alcohol and Drug Abuse Patient Records regulations: The Federal rules restrict any use of the information to criminally investigate or prosecute any alcohol or drug abuse patient.[facility] HospitalIn the event this information is protected by the Federal Confidentiality of Alcohol and Drug Abuse Patient Records regulations: The Federal rules restrict any use of the information to criminally investigate or prosecute any alcohol or drug abuse patient.[facility] HospitalIn the event this information is protected by the Federal Confidentiality of Alcohol and Drug Abuse Patient Records regulations: The Federal rules restrict any use of the information to criminally investigate or prosecute any alcohol or drug abuse patient.[facility] HospitalIn the event this information is protected by the Federal Confidentiality of Alcohol and Drug Abuse Patient Records regulations: The Federal rules restrict any use of the information to criminally investigate or prosecute any alcohol or drug abuse patient.[facility] HospitalIn the event this information is protected by the Federal Confidentiality of Alcohol and Drug Abuse Patient Records regulations: The Federal rules restrict any use of the information to criminally investigate or prosecute any alcohol or drug abuse patient.[facility] HospitalIn the event this information is protected by the Federal Confidentiality of Alcohol and Drug Abuse Patient Records regulations: The Federal rules restrict any use of the information to criminally investigate or prosecute any alcohol or drug abuse patient.[facility] HospitalIn the event this information is protected by the Federal Confidentiality of Alcohol and Drug Abuse Patient Records regulations: The Federal rules restrict any use of the information to criminally investigate or prosecute any alcohol or drug abuse patient.[facility] HospitalIn the event this information is protected by the Federal Confidentiality of Alcohol and Drug Abuse Patient Records regulations: The Federal rules restrict any use of the information to criminally investigate or prosecute any alcohol or drug abuse patient.[facility] HospitalIn the event this information is protected by the Federal Confidentiality of Alcohol and Drug Abuse Patient Records regulations: The Federal rules restrict any use of the information to criminally investigate or prosecute any alcohol or drug abuse patient.[facility] HospitalIn the event this information is protected by the Federal Confidentiality of Alcohol and Drug Abuse Patient Records regulations: The Federal rules restrict any use of the information to criminally investigate or prosecute any alcohol or drug abuse patient.[facility] HospitalIn the event this information is protected by the Federal Confidentiality of Alcohol and Drug Abuse Patient Records regulations: The Federal rules restrict any use of the information to criminally investigate or prosecute any alcohol or drug abuse patient.[facility] HospitalIn the event this information is protected by the Federal Confidentiality of Alcohol and Drug Abuse Patient Records regulations: The Federal rules restrict any use of the information to criminally investigate or prosecute any alcohol or drug abuse patient.[facility] Reason for Visit (unrecogniz ed section [...] Care Teams (unrecognized sec tion and content) Scrap Worker Relationship Specialty Start Date End Date Devon Moreira, DO [address] [place] [address] PCP - General 05/27/00 Scrap Worker Relationship Specialty Start Date End Date Devon Moreira, DO [address] [place] [address] PCP - General 05/27/00 Scrap Worker Relationship Specialty Start Date End Date Devon Moreira, DO [address] [place] [address] PCP - General 05/27/00 Scrap Worker Relationship Specialty Start Date End Date Devon Moreira, DO [address] [place] [address] PCP - General 05/27/00 Scrap Worker Relationship Specialty Start Date End Date Devon Moreira, DO [address] [place] [address] PCP - General 05/27/00 Scrap Worker Relationship Specialty Start Date End Date Devon Moreira, DO [address] [place] [address] PCP - General 05/27/00 Scrap Worker Relationship Specialty Start Date End Date Devon Moreira, DO [address] [place] [address] PCP - General 05/27/00 Scrap Worker Relationship Specialty Start Date End Date Devon Moreira, DO [address] [place] [address] PCP - General 05/27/00 Scrap Worker Relationship Specialty Start Date End Date Devon Moreira, DO [address] [place] [address] PCP - General 05/27/00 Scrap Worker Relationship Specialty Start Date End Date Devon Moreira, DO [address] [place] [address] PCP - General 05/27/00 Scrap Worker Relationship Specialty Start Date End Date Devon Moreira, DO [address] [place] [address] PCP - General 05/27/00 Scrap Worker Relationship Specialty Start Date End Date Devon Moreira, DO [address] [place] [address] PCP - General 05/27/00 Scrap Worker Relationship Specialty Start Date End Date Devon Moreira, DO [address] [place] [address] PCP - General 05/27/00 Scrap Worker Relationship Specialty Start Date End Date Devon Moreira, DO [address] [place] [address] PCP - General 05/27/00 Scrap Worker Relationship Specialty Start Date End Date Devon Moreira, DO [address] [place] [address] PCP - General 05/27/00 Scrap Worker Relationship Specialty Start Date End Date Devon Moreira, DO [address] [place] [address] PCP - General 05/27/00 Scrap Worker Relationship Specialty Start Date End Date Devon Moreira, DO [address] [place] [address] PCP - General 05/27/00 Scrap Worker Relationship Specialty Start Date End Date Devon Moreira, DO [address] [place] [address] PCP - General 05/27/00 Scrap Worker Relationship Specialty Start Date End Date Devon Moreira, DO [address] [place] [address] PCP - General 05/27/00 Team Status: Active Member Role Status Dates Devon Ball , DO Primary Care Provider Active Team Status: Inactive Member Role Status Dates Devon Moreira DO Primary Care Provider Active Sadia Aguilar APRN Attending Provider Active Scrap Worker Relationship Specialty Start Date End Date Devon Moreira DO [address] [place] [address] PCP - General 05/27/00 Scrap Worker Relationship Specialty Start Date End Date Devon Moreira DO [address] [place] [address] PCP - General 05/27/00 Scrap Worker Relationship Specialty Start Date End Date Ni Cabrera, DO [address] [facility] [address] [place] [address] PCP - ACO Reach 07/09/22 Devon Moreira MD [address] [place] [address] PCP - General Internal Medicine 07/14/22 PRN Active and Recently Administ ered Medications (unrecognized section and content) Medication Order 01/10/2022 01/11/2022 01/12/2022 lidocaine (PF) 10 mg/mL (1 %) injection (XYLOCAINE) SUBCUTANEOUS, X (OR/PROCEDURE) PRN, Starting on Wed01/12/22 at 1032, Until Wed01/13/22 at 0303, Intraprocedure 1032 (Given - Provid er: Vani Hdz APRN.CHIEF SCIENTIST) Goals (unrecognized section and content) Goals may [...] BE BASED ON THE PRIMARY CLINICAL RECORDS. [facility] provides no warranty or guarantee of the accuracy or completeness of information in this document.
[2023-05-12 07:07] LABS: Basophils Absolute Auto 0.1 10^3/uL (0.0-0.1); Basophils Percent Auto 0.8 % (0.2-2.0); Eosinophils Absolute Auto 0.3 10^3/uL (0.0-0.7); Eosinophils Percent Auto 4.1 % (0.9-7.0); Hemoglobin 9.2 g/dL (14.0-18.0); Immature Granulocytes Abs Auto 0.02 10^3/uL (0.00-0.03); Immature Granulocytes Pct Auto 0.3 % (0.0-0.5); Lymphocytes Absolute Auto 2.5 10^3/uL (1.2-3.8); Lymphocytes Percent Auto 35.5 % (20.5-60.0); Mean Corpuscular HGB Conc 30.7 g/dL (29.9-35.2); Mean Corpuscular Hemoglobin 26.2 pg (25.9-34.0); Mean Corpuscular Volume 85.5 fL (80.0-94.0); Mean Platelet Volume 10.5 fL (9.5-13.5); Monocytes Absolute Auto 0.8 10^3/uL (0.3-0.8); Monocytes Percent Auto 11.9 % (1.7-12.0); Neutrophils Absolute Auto 3.4 10^3/uL (1.4-6.5); Neutrophils Percent Auto 47.4 % (43.0-75.0); Platelet Count 208 10^3/uL (150-450); Red Blood Count 3.51 10^6/uL (4.70-6.10); Red Cell Distribution Width 15.7 % (11.0-15.0); White Blood Count 7.1 10^3/uL (4.0-11.0)
[2023-05-12 07:40] LABS: INR 3.39; Prothrombin Time 33.5 sec (9.0-11.6)
[2023-05-12 07:47] LABS: Alanine Aminotransferase 16 U/L (16-63); Albumin Globulin Ratio 0.8; Albumin Level 2.5 g/dL (3.4-5.0); Alkaline Phosphatase 71 U/L (46-116); Aspartate Amino Transferase 17 U/L (15-37); BUN Creatinine Ratio 31.6; Bilirubin Total 0.4 mg/dL (0.2-1.0); Calcium 8.1 mg/dL (8.5-10.1); Carbon Dioxide 27.9 mmol/L (21.0-32.0); Chloride 105 mmol/L (98-107); Estimated GFR (African America >60 (>=60); Estimated GFR (Non-African Ame 52 (>=60); Globulin 3.2 g/dL; Glucose 193 mg/dL (74-106); Phosphorus 3.9 mg/dL (2.6-4.7); Potassium 3.9 mmol/L (3.5-5.1); Sodium 141 mmol/L (136-145); Total Protein 5.7 g/dL (6.4-8.2)
[2023-05-14 19:09] LABS: Tacrolimus (FK506), Blood 5.6 ng/mL (2.0-20.0)
== END 2023-05-12 02:11 | disposition home or self-care (01) ==
LOC: LAB 02:10
PROVIDERS: PCP Internal Medicine; Visit Provider Internal Medicine
DX: N18.9 Chronic kidney disease, unspecified (principal); Z51.81 Encounter for therapeutic drug level monitoring
CPT/HCPCS: 36415; 80053; 80197; 83735; 84100; 85025; 85610

== ENCOUNTER 2023-05-17 03:19 | Outpatient (RCR) | payer MEDICARE, OTHER, SELFPAY | END 2023-06-15 18:12 | disposition home or self-care (01) | LOC: MM 03:19 | PROVIDERS: PCP Internal Medicine; Visit Provider Internal Medicine | DX: Z51.81 Encounter for therapeutic drug level monitoring (principal); Z79.01 Long term (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 of anticoagulants ==

== ENCOUNTER 2023-05-19 01:49 | Outpatient (REF) | payer MEDICARE, OTHER, SELFPAY ==
--- OUTSIDE RECORDS SUMMARY | 2023-05-19 01:56 | XMS_ITS | CCD ---
Author Organization [facility] Care Team Providers Care Automobile Body Repairer Name Role Phone PROVIDER, UNKNOWN Attending Unavailable [...] [place], ASHLEY Cortes Admitting Unavailable HIGHLSRINATH, ASHLEY Corets Attending Unavailable MARIAELENA, DR RICH Hernandez Consulting [...] Primary Care Unavailable Ni Cabrera DO Unavailable [phone] Devon Moreira MD Primary Care Provider NI CABRERA Attending Unavailable DEVON MOREIRA Referring Unavailable Allergies Allergy Classification Reported Allergen(s) Allergy Type Date of Onset Reaction(s) Facility (20 sources) Pyridostigmine; Translations: [PYRIDOSTIGMINE BROMIDE] Drug Allergy 2 GI Upset [facility] Work Phone: (1 source) ALLERGIES NOT ON FILE; Translations: [ALLERGIES NOT ON FILE] Propensity to adverse reactions (disorder) [facility] Repository (1 source) Pyridostigmine Drug Allergy [...] Indications: Type 1 diabetes mellitus with nephropathy ([facility]) 3 units breakfast, 5 units [...] 10 units and notify provider [facility] [place] [place] [phone] MG (6 sources) take 155-852 tablets by mouth twice daily [facility] [place] [place] [phone] MG 1 tablet Orally twice daily Active take 155-852 tablets by mouth four times daily take 155-852 tablets by mouth four times daily [facility] [place] [place] [phone] MG 1 tablet Orally Four times [...] needed. docusate sodium 50 mg / sennosides, mcc 8.6 mg oral tablet (20 sources) Start: [...] by mouth daily with lunch. [employer] [place] with lunch 7110 mL 0 12/11/2021 Active Comment on above: Take 237 mL by mouth daily with lunch. [place] with lunch polyethylene glycol 3350 49129 mg powder for oral solution (20 sources) [...] Coronary arteriosclerosis; Translations: [Atherosclerotic heart disease of [place] coronary artery without angina pectoris] Onset: 7 [...] current use of immunosuppressive drug; Translations: [Other fpc (current) drug therapy] Episodic Other aftercare (13 sources) Long-term current use of insulin; Translations: [FPC (current) use of insulin] Episodic Other aftercare (10 sources) director long term care (current) use of insulin; Translations: [SKILLED NURSING CURRENT USE OF INSULIN] Onset: 2 Episodic Other aftercare (5 sources) director long term care (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 of anticoagulants; Translations: [SKILLED NURSING CURRNT USE ANTICOAGULANTS] Onset: 3 Episodic Other [...] 07-30-2006 Episodic Other aftercare (2 sources) Other fpc (current) drug therapy; Translations: [OTH SOUND TECHNICIAN CURRENT DRUG THERAPY] Onset: 02-05-2022 Episodic Other aftercare (4 sources) Encounter for orthopedic aftercare following surgical amputation; Translations: [ENC ORTHOPED AFTERCARE FLW SURG AMP] Onset: 02-05-2022 Episodic Other aftercare (4 sources) director long term care (current) use of antibiotics; Translations: [SKILLED NURSING CURRENT USE ANTIBIOTICS] Onset: 12-20-2021 Episodic Other aftercare (1 source) director long term care (current) use of aspirin; Translations: [SKILLED NURSING CURRENT USE OF ASPIRIN] Onset: 01-19-2022 Episodic [...] Interpretation and review of laboratory results Normal [facility] POCT glycosylated hemoglobin (Hb A1C) docked deviceon 03-18-2023 HbA1c (Bld) [Mass fraction] 7.8 % [facility] CNPRosalie 12-25-2022 CNPN Telephone (TXCTGL) ALEX ALMONTE ([id number]) 1945 M Date Time Provider Department 12/25/22 KIDNEY TXP COORDINATORS TXCTGL During your visit today, we recorded the following information about you: Duane Ryan 12/25/2022 10:41 AM Signed Labs 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 Administrative Mail Officer Allergies As of Date: 12/25/2022 Noted Allergy [...] by mouth daily with lunch. 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 ALEX ALMONTE ([id number]) 1945 M Date Time Provider Department 11/11/22 [...] by mouth daily with lunch. [place] with lunch aspirin, enteric coated (ASPIRIN, ENTERIC [...] in am? thanks! RF Pts RN at [facility] reports pts sister picks up Rx [...] Apply 0. (more content not included)... Normal [facility] Office Visiton 09-09-2022 Follow-up visit [id number] Alex Almonte 1945 M Date Provider Department Center 09/09/2022 1596-SARTHAK PARNELL CARD [facility] Family History Problem Relation Age of Onset Cancer Mother Aneurysm Father Cancer Father Parkinsonism Father Family Status - Relation Status Age at Mother Father Level of Service:11478 MI OFFICE/OUTPATIENT ESTABLISHED MOD MDM 30-39 MIN Normal [facility] Glucose Poct Glucometerson 0 07-20-2022 Commemt1 Glu2: Cleaned Meter Normal [facility] Comment on above: Result Comment: PERF ORMED BY: [facility] [address] [place] [address] PATHOLOGIST FRUIT I FARMWORKER JOSE F ELLIOTT M.D. Performed By: #### G LULS #### Point of Care testing , Glucose [Mass/Vol] 176 mg/dL Normal [facility] Comment on above: Result Comment: [facility] Glucose Reference Range is dependent on time and content of last meal. Glucose of more than 200 mg/dL in a nonstressed, ambulatory subject supports the diagnosis of Diabetes Mellitus. Performed By: #### G LULS #### Point of Care testing , FK506 (TACROLIMUS) WHOLE BLO ODon 07-12-2022 Tacrolimus (FK506), Blood 10.9 ng/mL Normal 2.0-20.0 [facility] Comment on above: Result Comment: Trou gh (immediately following transplant) 15.0 . Trough (steady state, 2 weeks or more after transplant): 3.0 - 8.0 . Performed by LC-MS/MS technology. Performed By: #### F K506T ####[facility] [address]fiq[address]qi[address] [place], [place] [address]Dr. Farhat Leal CBC AUTO DIFFon 07-10-2022 BASO # 0.0 103/ul Normal 0.0-0.1 [facility] Comment on above: Performed By: #### C BC ####[facility] Msp[address] [place], [place] [address]Dr. Farhat Leal Basophils/100 WBC (Bld) 0.5 % Normal 0.2-2.0 [facility] Comment on above: Performed By: #### C BC ####[facility] G[address] [place], [place] [address]Dr. Farhat Leal EO # 0.3 103/ul Normal 0.0-0.7 [facility] Comment on above: Performed By: #### C BC ####[facility] [address] [place], [place] [address]Dr. Farhat Leal Eosinophils/100 WBC (Bld) 4.9 % Normal 0.9-7.0 [facility] Comment on above: Performed By: #### C BC ####[facility] Raidhflcpx[address] [place], [place] [address]Dr. Farhat Leal Erythrocyte distribution width (RBC) [Ratio] 13.8 % Normal 11.0-15.0 [facility] Comment on above: Performed By: #### C BC ####[facility] Aozcx[address] [place], [place] [address]Dr. Farhat Leal Hematocrit (Bld) [Volume fraction] 36.6 % Critically low 42.0-54.0 [facility] Comment on above: Performed By: #### C BC ####[facility] [address] [place] [id number]. Farhat Leal Hemoglobin (Bld) [Mass/Vol] 12.2 g/dL Critically low 14.0-18.0 [facility] Comment on above: Performed By: #### C BC ####[facility] [address] [place] [id number]. Farhat Leal IG # 0.01 10e3/ul Normal 0.00-0.03 [facility] Comment on above: Performed By: #### C BC ####[facility] [address] [place] [address]Dr. Farhat Leal IG % 0.2 % Normal 0.0-0.5 [facility] Comment on above: Performed By: #### C BC ####[facility] [address]xy[address] [place] [address]Dr. Farhat Leal LYMPH # 2.2 103/ul Normal 1.2-3.8 [facility] Comment on above: Performed By: #### C BC ####[facility] [address] [place] [address]Dr. Farhat Leal Lymphocytes/100 WBC (Bld) 33.9 % Normal 20.5-60.0 [facility] Comment on above: Performed By: #### C BC ####[facility] [address] [place] [address]Dr. Farhat Leal MANUAL DIFF REQ NO Normal [facility] Comment on above: Performed By: #### C BC ####[facility] [address] [place] [id number]. Farhat Leal MCH (RBC) [Entitic mass] 31.0 pg Normal 25.9-34.0 [facility] Comment on above: Performed By: #### C BC ####[facility] [address]ms[address] [place] [id number]. Farhat Leal MCHC (RBC) [Mass/Vol] 33.3 g/dL Normal 29.9-35.2 [facility] Comment on above: Performed By: #### C BC ####[facility] [address]so[address] [place], [place] [address]Dr. Farhat Leal MCV (RBC) [Entitic vol] 93.1 fL Normal 80.0-94.0 [facility] Comment on above: Performed By: #### C BC ####[facility] [address]fw[address] [place] [id number]. Farhat Leal MONO # 0.7 103/ul Normal 0.3-0.8 [facility] Comment on above: Performed By: #### C BC ####[facility] [address] [place] [address]Dr. Farhat Elvis Monocytes/100 WBC (Bld) 10.8 % Normal 1.7-12.0 [facility] Comment on above: Performed By: #### C BC ####[facility] [address] [place] [address]Dr. Farhat Leal NEUT # 3.2 103/ul Normal 1.4-6.5 [facility] Comment on above: Performed By: #### C BC ####[facility] [address]we[address] [place] [address]Dr. Farhat Elvis Neutrophils/100 WBC (Bld) 49.7 % Normal 43.0-75.0 [facility] Comment on above: Performed By: #### C BC ####[facility] Ruf[address]ls[address] [place] [address]Dr. Farhat Elivs Platelet mean volume (Bld) [Entitic vol] 10.9 fL Normal 9.5-13.5 [facility] Comment on above: Performed By: #### C BC ####[facility] J[address]xf[address] [place] [id number]. Farhat Elvis PLT 195 103/ul Normal 150-450 [facility] Comment on above: Performed By: #### C BC ####[facility] W[address]gc24[address] [place] [id number]. Farhat Elvis RBC 3.93 106/ul Critically low 4.70-6.10 [facility] Comment on above: Performed By: #### C BC ####[facility] Q[address]fl[address]199 [place] [id number]. Farhat Leal WBC 6.4 103/ul Normal 4.0-11.0 [facility] Comment on above: Performed By: #### C BC ####[facility] [address] [place], [place] [address]Dr. Farhat Leal MAGNESIUMon 07-10-2022 Magnesium [Mass/Vol] 1.9 mg/dL Normal 1.8-2.4 [facility] Comment on above: Performed By: #### M Anais PHOS ####[facility] Kp[address] [place] [address]Dr. Farhat Leal PHOSPHORUSon 07-10-2022 Phosphate [Mass/Vol] 4.7 mg/dL Normal 2.6-4.7 [facility] Comment on above: Performed By: #### Demetrice Manzo PHOS ####[facility] Ryoc[address] [place], [place] [address]Dr. Farhat Leal PROF 14(COMP METB)on 023 Albumin [Mass/Vol] 2.7 g/dL Critically low 3.4-5.0 [facility] Comment on above: Performed By: #### C MP ####[facility] J[address]appj[address] [place], [place] [address]Dr. Madelynlorri Leal Albumin/Globulin [Mass ratio] 0.8 {ratio} Normal [facility] Comment on above: Performed By: #### C MP ####[facility] Rxulhuoooq23[address] [place], [place] [address]Dr. Madelynlorri Leal ALP [Catalytic activity/Vol] 59 U/L Normal 46-116 [facility] Comment on above: Performed By: #### C MP ####[facility] Dhbtwpjups[address] [place], [place] [address]Dr. Farhat Leal ALT [Catalytic activity/Vol] 16 U/L Normal 16-63 [facility] Comment on above: Performed By: #### C MP ####[facility] [address]tpovp[address] [place] [address]Dr. Farhat Leal Anion gap [Moles/Vol] 12.3 mmol/L Normal [facility] Comment on above: Performed By: #### C MP ####[facility] Dszcwziauy[address] [place] [id number]. Farhat Leal AST [Catalytic activity/Vol] 17 U/L Normal 15-37 [facility] Comment on above: Performed By: #### C MP ####[facility] Gdf[address]je[address] [place] [id number]. Farhat Leal Bilirubin [Mass/Vol] 0.5 mg/dL Normal 0.2-1.0 [facility] Comment on above: Performed By: #### C MP ####[facility] Ks[address] [place], [place] [address]Dr. Farhat Leal Calcium [Mass/Vol] 8.5 mg/dL Normal 8.5-10.1 [facility] Comment on above: Performed By: #### C MP ####[facility] Hspidbvepp[address] [place], [place] [address]Dr. Farhat Leal Chloride [Moles/Vol] 104 mmol/L Normal 98-107 [facility] Comment on above: Performed By: #### C MP ####[facility] Uwoy[address]ayfj[address] [place], [place] [address]Dr. Farhat Leal CO2 [Moles/Vol] 27.6 mmol/L Normal 21.0-32.0 [facility] Comment on above: Performed By: #### C MP ####[facility] Ualq[address]fwz[address] [place], [place] [address]Dr. Farhat Leal Creatinine [Mass/Vol] 1.79 mg/dL Critically high 0.70-1.30 [facility] Comment on above: Performed By: #### C MP ####[facility] [address]vjvcwsl[address] [place], [place] [address]Dr. Farhat Leal EGFR-AF BAHAMIAN 45 mL/min/1.73m2 Critically low >=60 [facility] Comment on above: Performed By: #### C MP ####[facility] S[address]fwv[address] [place], [place] [address]Dr. Farhat Leal EGFR-NON AF BAHAMIAN 37 mL/min/1.73m2 Critically low >=60 [facility] Comment on above: Performed By: #### C MP ####[facility] [address] [place] [address]Dr. Farhat Leal Globulin (S) [Mass/Vol] 3.2 g/dL Normal [facility] Comment on above: Performed By: #### C MP ####[facility] Uhkenbbsxq7[address] [place] [address]Dr. Farhat Leal Glucose [Mass/Vol] 203 mg/dL Critically high 74-106 [facility] Comment on above: Performed By: #### C MP ####[facility] Dtqafmtcfy6491 [place] [address]Dr. Farhat Leal Potassium [Moles/Vol] 3.9 mmol/L Normal 3.5-5.1 [facility] Comment on above: Performed By: #### C MP ####[facility] G[address]td[address]az[address]ab[address] [place], [place] [address]Dr. Farhat Leal Protein [Mass/Vol] 5.9 g/dL Critically low 6.4-8.2 [facility] Comment on above: Performed By: #### C MP ####[facility] Gsdzev[address]oy[address] [place], [place] [address]Dr. Farhat Leal Sodium [Moles/Vol] 140 mmol/L Normal 136-145 [facility] Comment on above: Performed By: #### C MP ####[facility] Zo[address]zeqyoi[address] [place], [place] [address]Dr. Farhat Leal Urea nitrogen [Mass/Vol] 61.0 mg/dL Critically high 7.0-18.0 [facility] Comment on above: Performed By: #### C MP ####[facility] Meziyvorum[address] [place], [place] [address]Dr. Farhat Leal Urea nitrogen/Creatinine [Mass ratio] 34.1 mg/mg Normal [facility] Comment on above: Performed By: #### C MP ####[facility] [address]hcgvumo[address] [place], [place] [address]Dr. Farhat Leal PROTIMEon 07-10-2022 INR Coag (PPP) [Relative time] 2.95 {INR} Normal [facility] Comment on above: Performed By: #### P T ####[facility] [address]itc[address] [place] [address]Dr. Farhat Leal INR GUIDELINES SEE BELOW Normal [facility] Comment on above: Result Comment: MALINA RED INR: 2.0 - 3.0 CONDITIONS NOT LISTED BELOW 2.5 - 3.5 FOR PROSTHETIC HEART VALVE REPLACEMENT 2.5 - 3.5 RECURRENT THROMBOSIS Performed By: #### P T ####[facility] Dhuhhshmp[address] [place], [place] [address]Dr. Farhat Leal PT Coag (PPP) [Time] 29.4 s Critically high 9.0-11.6 [facility] Comment on above: Performed By: #### P T ####[facility] Keeywsbzj[address] [place], [place] [address]Dr. Farhat Leal FK506 (TACROLIMUS) WHOLE BLO ODon 07-07-2022 Tacrolimus (FK506), Blood 8.3 ng/mL Normal 2.0-20.0 [facility] Comment on above: Result Comment: Trou gh (immediately following transplant) 15.0 . Trough (steady state, 2 weeks or more after transplant): 3.0 - 8.0 . Performed by LC-MS/MS technology. Performed By: #### F K506T ####[facility] [address]isbqneaap[address] [place], [place] [address]Dr. Farhat Leal CBC AUTO DIFFon 07-03-2022 BASO # 0.0 103/ul Normal 0.0-0.1 [facility] Comment on above: Performed By: #### C BC ####[facility] Mim[address]ftesc[address] [place], [place] [address]Dr. Farhat Leal Basophils/100 WBC (Bld) 0.6 % Normal 0.2-2.0 [facility] Comment on above: Performed By: #### C BC ####[facility] D[address]stmu[address] [place], [place] [address]Dr. Farhat Leal EO # 0.3 103/ul Normal 0.0-0.7 [facility] Comment on above: Performed By: #### C BC ####[facility] [address] [place] [address]Dr. Farhat Leal Eosinophils/100 WBC (Bld) 4.1 % Normal 0.9-7.0 [facility] Comment on above: Performed By: #### C BC ####[facility] Dh[address]obqewru[address] [place], [place] [address]Dr. Farhat Leal Erythrocyte distribution width (RBC) [Ratio] 14.0 % Normal 11.0-15.0 [facility] Comment on above: Performed By: #### C BC ####[facility] Yzilujdata[address] [place], [place] [address]Dr. Farhat Leal Hematocrit (Bld) [Volume fraction] 35.9 % Critically low 42.0-54.0 [facility] Comment on above: Performed By: #### C BC ####[facility] [address]trj[address]wtck[address] [place], [place] [address]Dr. Farhat Leal Hemoglobin (Bld) [Mass/Vol] 12.0 g/dL Critically low 14.0-18.0 [facility] Comment on above: Performed By: #### C BC ####[facility] Knx[address]mq[address] [place], [place] [address]Dr. Farhat Leal IG # 0.04 10e3/ul Critically high 0.00-0.03 [facility] Comment on above: Performed By: #### C BC ####[facility] [address]qmahlcqio[address] [place], [place] [address]Dr. Farhat Leal IG % 0.6 % Critically high 0.0-0.5 [facility] Comment on above: Performed By: #### C BC ####[facility] Zkybz[address]ugs[address] [place], [place] [address]Dr. Farhat Leal LYMPH # 1.5 103/ul Normal 1.2-3.8 [facility] Comment on above: Performed By: #### C BC ####[facility] [address] [place], [place] [address]Dr. Farhat Leal Lymphocytes/100 WBC (Bld) 21.5 % Normal 20.5-60.0 [facility] Comment on above: Performed By: #### C BC ####[facility] [address] [place] [id number]. Farhat Leal MANUAL DIFF REQ NO Normal [facility] Comment on above: Performed By: #### C BC ####[facility] [address]zshcqpj[address] [place] [id number]. Farhat Leal MCH (RBC) [Entitic mass] 30.8 pg Normal 25.9-34.0 [facility] Comment on above: Performed By: #### C BC ####[facility] [address]jt[address] [place] [address]Dr. Farhat Leal MCHC (RBC) [Mass/Vol] 33.4 g/dL Normal 29.9-35.2 [facility] Comment on above: Performed By: #### C BC ####[facility] [address]xm[address]hetee60[address] [place] [address]Dr. Farhat Leal MCV (RBC) [Entitic vol] 92.1 fL Normal 80.0-94.0 [facility] Comment on above: Performed By: #### C BC ####[facility] Nsfgljfpcd039[address] [place] [id number]. Farhat Leal MONO # 0.6 103/ul Normal 0.3-0.8 [facility] Comment on above: Performed By: #### C BC ####[facility] Hprshgjbvu46[address] [place] [address]Dr. Farhat Elvis Monocytes/100 WBC (Bld) 8.7 % Normal 1.7-12.0 [facility] Comment on above: Performed By: #### C BC ####[facility] Elo[address]qxw[address] [place] [id number]. Farhat Leal NEUT # 4.4 103/ul Normal 1.4-6.5 [facility] Comment on above: Performed By: #### C BC ####[facility] [address]znw[address] [place], [place] [address]Dr. Farhat Elvis Neutrophils/100 WBC (Bld) 64.5 % Normal 43.0-75.0 [facility] Comment on above: Performed By: #### C BC ####[facility] E[address] [place] [id number]. Farhat Leal Platelet mean volume (Bld) [Entitic vol] 10.1 fL Normal 9.5-13.5 [facility] Comment on above: Performed By: #### C BC ####[facility] [address]wrba[address] [place] [id number]. Farhat Leal PLT 177 103/ul Normal 150-450 [facility] Comment on above: Performed By: #### C BC ####[facility] Vqdgmntcdo28[address] [place] [address]Dr. Farhat Leal RBC 3.90 106/ul Critically low 4.70-6.10 [facility] Comment on above: Performed By: #### C BC ####[facility] Yqwijwsvbb3849 [place] [address]Dr. Farhat Leal WBC 6.8 103/ul Normal 4.0-11.0 [facility] Comment on above: Performed By: #### C BC ####[facility] [address]uzlruompc6[address] [place] [address]Dr. Farhat Leal PROF 14(COMP METB)on 023 Albumin [Mass/Vol] 2.8 g/dL Critically low 3.4-5.0 [facility] Comment on above: Performed By: #### C MP ####[facility] Hshjvz[address]ot12[address] [place] [address]Dr. Farhat Leal Albumin/Globulin [Mass ratio] 0.8 {ratio} Normal [facility] Comment on above: Performed By: #### C MP ####[facility] Facvxoiuiu8[address] [place] [address]Dr. Farhat Leal ALP [Catalytic activity/Vol] 68 U/L Normal 46-116 [facility] Comment on above: Performed By: #### C MP ####[facility] Kdercmetbd8302 [place] [address]Dr. Farhat Leal ALT [Catalytic activity/Vol] 20 U/L Normal 16-63 [facility] Comment on above: Performed By: #### C MP ####[facility] Qjlhvqtimn3298 [place] [address]Dr. Farhat Leal Anion gap [Moles/Vol] 11.1 mmol/L Normal [facility] Comment on above: Performed By: #### C MP ####[facility] Xficpjtqka9673 [place] [address]Dr. Farhat Leal AST [Catalytic activity/Vol] 22 U/L Normal 15-37 [facility] Comment on above: Performed By: #### C MP ####[facility] Ktnddjsdor[address] [place], [place] [address]Dr. Farhat Leal Bilirubin [Mass/Vol] 0.4 mg/dL Normal 0.2-1.0 [facility] Comment on above: Performed By: #### C MP ####[facility] [address]weytryebv[address] [place], [place] [address]Dr. Farhat Leal Calcium [Mass/Vol] 8.5 mg/dL Normal 8.5-10.1 [facility] Comment on above: Performed By: #### C MP ####[facility] Fkdnspbrue[address] [place], [place] [address]Dr. Farhat Elvis Chloride [Moles/Vol] 106 mmol/L Normal 98-107 [facility] Comment on above: Performed By: #### C MP ####[facility] Rahdxjbjzo[address] [place], [place] [address]Dr. Farhat Leal CO2 [Moles/Vol] 29.1 mmol/L Normal 21.0-32.0 [facility] Comment on above: Performed By: #### C MP ####[facility] [address]eippzhaig[address] [place], [place] [address]Dr. Farhat Elvis Creatinine [Mass/Vol] 1.70 mg/dL Critically high 0.70-1.30 [facility] Comment on above: Performed By: #### C MP ####[facility] [address]iezxksxth[address] [place], [place] [address]Dr. Farhat Elvis EGFR-AF BAHAMIAN 48 mL/min/1.73m2 Critically low >=60 [facility] Comment on above: Performed By: #### C MP ####[facility] [address]qtn[address] [place] [address]Dr. Farhat Leal EGFR-NON AF BAHAMIAN 39 mL/min/1.73m2 Critically low >=60 [facility] Comment on above: Performed By: #### C MP ####[facility] [address]bmqepkhol[address] [place] [address]Dr. Farhat Leal Globulin (S) [Mass/Vol] 3.6 g/dL Normal [facility] Comment on above: Performed By: #### C MP ####[facility] Lirpimdmvk[address] [place] [address]Dr. Farhat Leal Glucose [Mass/Vol] 312 mg/dL Critically high 74-106 T [facility] Comment on above: Performed By: #### C MP ####[facility] Ekzlltyfbm87[address] [place] [address]Dr. Farhat Leal Potassium [Moles/Vol] 4.2 mmol/L Normal 3.5-5.1 [facility] Comment on above: Performed By: #### C MP ####[facility] Qhldavxqft5[address] [place], [place] [address]Dr. Farhat Leal Protein [Mass/Vol] 6.4 g/dL Normal 6.4-8.2 [facility] Comment on above: Performed By: #### C MP ####[facility] Mxsifvoveb11[address] [place], [place] [address]Dr. Farhat Leal Sodium [Moles/Vol] 142 mmol/L Normal 136-145 [facility] Comment on above: Performed By: #### C MP ####[facility] Kwsjnyccuq5[address] [place] [address]Dr. Farhat Leal Urea nitrogen [Mass/Vol] 49.0 mg/dL Critically high 7.0-18.0 [facility] Comment on above: Performed By: #### C MP ####[facility] Vremmzbxrr[address] [place], [place] [address]Dr. Farhat Leal Urea nitrogen/Creatinine [Mass ratio] 28.8 mg/mg Normal [facility] Comment on above: Performed By: #### C MP ####[facility] Dyeeacnnag045[address] [place], [place] [address]DrSkylar Leal PROTIMEon 07-03-2022 INR Coag (PPP) [Relative time] 2.23 {INR} Normal [facility] Comment on above: Performed By: #### P T ####[facility] Fwbnvbjmnb68[address] [place], [place] [address]DrSkylar Leal INR GUIDELINES SEE BELOW Normal [facility] Comment on above: Result Comment: MALINA RED INR: 2.0 - 3.0 CONDITIONS NOT LISTED BELOW 2.5 - 3.5 FOR PROSTHETIC HEART VALVE REPLACEMENT 2.5 - 3.5 RECURRENT THROMBOSIS Performed By: #### P T ####[facility] Dxrasxtdnd5199[address] [place], [place] [address]DrSkylar Leal PT Coag (PPP) [Time] 22.6 s Critically high 9.0-11.6 [facility] Comment on above: Performed By: #### P T ####[facility] Xfbfoqlsch4746[address] [place], [place] [address]DrSkylar Leal FK506 (TACROLIMUS) WHOLE BLO ODon 06-29-2022 Tacrolimus (FK506), Blood 12.2 ng/mL Normal 2.0-20.0 [facility] Comment on above: Result Comment: Trou gh (immediately following transplant) 15.0 . Trough (steady state, 2 weeks or more after transplant): 3.0 - 8.0 . Performed by LC-MS/MS technology. Performed By: #### F K506T ####[facility] Kxpbazwkkl8170[address] [place], [place] [address]Dr. Farhat Leal CBC AUTO DIFFon 06-26-2022 BASO # 0.0 103/ul Normal 0.0-0.1 [facility] Comment on above: Performed By: #### C BC ####[facility] Xvwasbjyxq2139[address] [place], [place] [address]DrSkylar Leal Basophils/100 WBC (Bld) 0.5 % Normal 0.2-2.0 [facility] Comment on above: Performed By: #### C BC ####[facility] Baezjtcgxf7[address] [place], [place] [address]DrSkylar Leal EO # 0.3 103/ul Normal 0.0-0.7 [facility] Comment on above: Performed By: #### C BC ####[facility] Bckzhazymv5044[address] [place], [place] [address]Dr. Farhat Leal Eosinophils/100 WBC (Bld) 4.3 % Normal 0.9-7.0 [facility] Comment on above: Performed By: #### C BC ####[facility] Goosuwkxnk2275[address] [place], [place] [address]Dr. Farhat Leal Erythrocyte distribution width (RBC) [Ratio] 14.1 % Normal 11.0-15.0 [facility] Comment on above: Performed By: #### C BC ####[facility] Laurrsgqec1207[address] [place], [place] [address]Dr. Farhat Leal Hematocrit (Bld) [Volume fraction] 35.4 % Critically low 42.0-54.0 [facility] Comment on above: Performed By: #### C BC ####[facility] Hnfqpvniuq0525[address] [place], [place] [address]Dr. Farhat Leal Hemoglobin (Bld) [Mass/Vol] 11.8 g/dL Critically low 14.0-18.0 [facility] Comment on above: Performed By: #### C BC ####[facility] Egcpslhemw8269[address] [place], [place] [address]Dr. Farhat Leal IG # 0.02 10e3/ul Normal 0.00-0.03 [facility] Comment on above: Performed By: #### C BC ####[facility] Atalstvhro1801[address] [place], [place] [address]Dr. Farhat Elvis IG % 0.3 % Normal 0.0-0.5 [facility] Comment on above: Performed By: #### C BC ####[facility] Vrcjdthqzq4640[address] [place], [place] [address]Dr. Farhat Leal LYMPH # 2.4 103/ul Normal 1.2-3.8 [facility] Comment on above: Performed By: #### C BC ####[facility] Cblkhipnhq7214[address] [place], [place] [address]DrSkylar Leal Lymphocytes/100 WBC (Bld) 40.4 % Normal 20.5-60.0 [facility] Comment on above: Performed By: #### C BC ####[facility] Tyfjfljayn90[address] [place] [address]DrSkylar Leal MANUAL DIFF REQ NO Normal [facility] Comment on above: Performed By: #### C BC ####[facility] Ufenxkqsns4830 [place] [address]DrSkylar Leal MCH (RBC) [Entitic mass] 31.0 pg Normal 25.9-34.0 [facility] Comment on above: Performed By: #### C BC ####[facility] Mxhpnuesmv5922[address] [place], [place] [address]DrSkylar Leal MCHC (RBC) [Mass/Vol] 33.3 g/dL Normal 29.9-35.2 [facility] Comment on above: Performed By: #### C BC ####[facility] Mexqnylsnu878[address] [place], [place] [address]DrSkylar Leal MCV (RBC) [Entitic vol] 92.9 fL Normal 80.0-94.0 [facility] Comment on above: Performed By: #### C BC ####[facility] Qtaqlwbceo8376[address] [place], [place] [address]DrSkylar Leal MONO # 0.7 103/ul Normal 0.3-0.8 [facility] Comment on above: Performed By: #### C BC ####[facility] Hjbekhezpe5560[address] [place], [place] [address]DrSkylar Leal Monocytes/100 WBC (Bld) 11.1 % Normal 1.7-12.0 [facility] Comment on above: Performed By: #### C BC ####[facility] Mdyeyzjsxe2484[address] [place], [place] [address]DrSkylar Leal NEUT # 2.6 103/ul Normal 1.4-6.5 [facility] Comment on above: Performed By: #### C BC ####[facility] Ofxdbysszu4414[address] [place], [place] [address]DrSkylar Leal Neutrophils/100 WBC (Bld) 43.4 % Normal 43.0-75.0 [facility] Comment on above: Performed By: #### C BC ####[facility] Ohlviblfky3[address] [place] [address]Dr. Farhat Leal Platelet mean volume (Bld) [Entitic vol] 10.4 fL Normal 9.5-13.5 [facility] Comment on above: Performed By: #### C BC ####[facility] Kvmarvyrlh30[address] [place] [address]Dr. Farhat Leal PLT 211 103/ul Normal 150-450 [facility] Comment on above: Performed By: #### C BC ####[facility] Yneaxsgugq685[address] [place], [place] [address]Dr. Farhat Leal RBC 3.81 106/ul Critically low 4.70-6.10 [facility] Comment on above: Performed By: #### C BC ####[facility] Fuxqdgomge1437[address] [place], [place] [address]Dr. Farhat Leal WBC 6.0 103/ul Normal 4.0-11.0 [facility] Comment on above: Performed By: #### C BC ####[facility] Kvpucmizil9839[address] [place], [place] [address]DrSkylar Leal PROF 14(COMP METB)on 023 Albumin [Mass/Vol] 2.6 g/dL Critically low 3.4-5.0 [facility] Comment on above: Performed By: #### C MP ####[facility] Kyirxagjkt202[address] [place], [place] [address]DrSkylar Leal Albumin/Globulin [Mass ratio] 0.8 {ratio} Normal [facility] Comment on above: Performed By: #### C MP ####[facility] Vvcrxpjhhr108[address] [place], [place] [address]DrSkylar Leal ALP [Catalytic activity/Vol] 64 U/L Normal 46-116 [facility] Comment on above: Performed By: #### C MP ####[facility] Ahkkdbuktv524[address] [place], [place] [address]DrSkylar Leal ALT [Catalytic activity/Vol] 18 U/L Normal 16-63 [facility] Comment on above: Performed By: #### C MP ####[facility] Xxlvohbxjs4041 [place] [id number]. Farhat Elvis Anion gap [Moles/Vol] 10.2 mmol/L Normal [facility] Comment on above: Performed By: #### C MP ####[facility] Bssjlnmqkb08[address] [place] [id number]. Farhat Elvis AST [Catalytic activity/Vol] 16 U/L Normal 15-37 [facility] Comment on above: Performed By: #### C MP ####[facility] Lpgvpyscgw0433 [place] [address]Dr. Farhat Leal Bilirubin [Mass/Vol] 0.6 mg/dL Normal 0.2-1.0 [facility] Comment on above: Performed By: #### C MP ####[facility] Capbofkbfy0249[address] [place], [place] [address]Dr. Madelynlorri Leal Calcium [Mass/Vol] 8.5 mg/dL Normal 8.5-10.1 [facility] Comment on above: Performed By: #### C MP ####[facility] Nidhkdajbq[address] [place], [place] [address]Dr. Farhat Leal Chloride [Moles/Vol] 106 mmol/L Normal 98-107 [facility] Comment on above: Performed By: #### C MP ####[facility] Aehjaqplez24230[address] [place], [place] [address]Dr. Farhat Leal CO2 [Moles/Vol] 29.8 mmol/L Normal 21.0-32.0 [facility] Comment on above: Performed By: #### C MP ####[facility] Fzckmhqyxs25[address] [place], [place] [address]Dr. Farhat Leal Creatinine [Mass/Vol] 1.60 mg/dL Critically high 0.70-1.30 [facility] Comment on above: Performed By: #### C MP ####[facility] L[address]cykvdqf7699[address] [place], [place] [address]Dr. Farhat Leal EGFR-AF BAHAMIAN 51 mL/min/1.73m2 Critically low >=60 [facility] Comment on above: Performed By: #### C MP ####[facility] Raypwkqueq5775 [place] [address]Dr. Farhat Elvis EGFR-NON AF BAHAMIAN 42 mL/min/1.73m2 Critically low >=60 [facility] Comment on above: Performed By: #### C MP ####[facility] Imrgkqbpyg5632 [place] [address]Dr. Madelynlorri Elvis Globulin (S) [Mass/Vol] 3.4 g/dL Normal [facility] Comment on above: Performed By: #### C MP ####[facility] Lfnnqgdbzv1910[address] [place], [place] [address]Dr. Farhat Leal Glucose [Mass/Vol] 178 mg/dL Critically high 74-106 T [facility] Comment on above: Performed By: #### C MP ####[facility] Wjosmidvig1609[address] [place], [place] [address]Dr. Farhat Leal Potassium [Moles/Vol] 4.0 mmol/L Normal 3.5-5.1 [facility] Comment on above: Performed By: #### C MP ####[facility] Tihifrhdvd2949[address] [place], [place] [address]Dr. Madelynlorri Elvis Protein [Mass/Vol] 6.0 g/dL Critically low 6.4-8.2 [facility] Comment on above: Performed By: #### C MP ####[facility] Bfhxscxgas5120[address] [place], [place] [address]Dr. Farhat Leal Sodium [Moles/Vol] 142 mmol/L Normal 136-145 [facility] Comment on above: Performed By: #### C MP ####[facility] Fgppoevlpq0084[address] [place], [place] [address]Dr. Farhat Leal Urea nitrogen [Mass/Vol] 49.0 mg/dL Critically high 7.0-18.0 [facility] Comment on above: Performed By: #### C MP ####[facility] Sdilytiliu4598[address] [place], [place] [address]Dr. Farhat Leal Urea nitrogen/Creatinine [Mass ratio] 30.6 mg/mg Normal [facility] Comment on above: Performed By: #### C MP ####[facility] Jqzhqlfxtg4459[address] [place], [place] [address]DrSkylar Leal PROTIMEon 06-26-2022 INR Coag (PPP) [Relative time] 1.77 {INR} Normal [facility] Comment on above: Performed By: #### P T ####[facility] Bnmrkaixns3022[address] [place], [place] [address]DrSkylar Leal INR GUIDELINES SEE BELOW Normal [facility] Comment on above: Result Comment: MALINA RED INR: 2.0 - 3.0 CONDITIONS NOT LISTED BELOW 2.5 - 3.5 FOR PROSTHETIC HEART VALVE REPLACEMENT 2.5 - 3.5 RECURRENT THROMBOSIS Performed By: #### P T ####[facility] Wbyzifokcm3908[address] [place], [place] [address]Dr. Farhat Leal PT Coag (PPP) [Time] 18.2 s Critically high 9.0-11.6 [facility] Comment on above: Performed By: #### P T ####[facility] Setemiiagf1085[address] [place], [place] [address]DrSkylar Leal FK506 (TACROLIMUS) WHOLE BLO ODon 06-22-2022 Tacrolimus (FK506), Blood 24.5 ng/mL Invalid Interpretation Code 2.0-20.0 [facility] Comment on above: Result Comment: Trou gh (immediately following transplant) 15.0 . Trough (steady state, 2 weeks or more after transplant): 3.0 - 8.0 . Performed by LC-MS/MS technology.Patient drug level exceeds published reference range. Evaluateclinically for signs of potential toxicity. Performed By: #### F K506T ####[facility] Rggtqonlnq4415[address] [place], [place] [address]DrSkylar Leal CBC AUTO DIFFon 06-19-2022 BASO # 0.1 103/ul Normal 0.0-0.1 [facility] Comment on above: Performed By: #### C BC ####[facility] Pgkyrsdubi0059[address] [place], [place] [address]DrSkylar Leal Basophils/100 WBC (Bld) 0.7 % Normal 0.2-2.0 [facility] Comment on above: Performed By: #### C BC ####[facility] Pdvhaadron3276[address] [place], [place] [address]Dr. Farhat Leal EO # 0.4 103/ul Normal 0.0-0.7 [facility] Comment on above: Performed By: #### C BC ####[facility] Ikmxuciwri5416[address] [place], [place] [address]Dr. Farhat Leal Eosinophils/100 WBC (Bld) 5.7 % Normal 0.9-7.0 [facility] Comment on above: Performed By: #### C BC ####[facility] Ayuybxymju5904[address] [place], [place] [address]Dr. Farhat Leal Erythrocyte distribution width (RBC) [Ratio] 14.5 % Normal 11.0-15.0 [facility] Comment on above: Performed By: #### C BC ####[facility] Cwwbouzjws8537[address] [place], [place] [address]Dr. Farhat Leal Hematocrit (Bld) [Volume fraction] 34.1 % Critically low 42.0-54.0 [facility] Comment on above: Performed By: #### C BC ####[facility] Bjjesnuryu9239[address] [place], [place] [address]Dr. Farhat Leal Hemoglobin (Bld) [Mass/Vol] 11.3 g/dL Critically low 14.0-18.0 [facility] Comment on above: Performed By: #### C BC ####[facility] Gdhskxheeu5575[address] [place], [place] [address]Dr. Farhat Leal IG # 0.02 10e3/ul Normal 0.00-0.03 [facility] Comment on above: Performed By: #### C BC ####[facility] Ihdygsybti424[address] [place], [place] [address]Dr. Farhat Leal IG % 0.3 % Normal 0.0-0.5 [facility] Comment on above: Performed By: #### C BC ####[facility] Gamecgevow9815[address] [place], [place] [address]Dr. Farhat Leal LYMPH # 3.1 103/ul Normal 1.2-3.8 [facility] Comment on above: Performed By: #### C BC ####[facility] Eicoxptljr8[address] [place] [address]DrSkylar Leal Lymphocytes/100 WBC (Bld) 40.6 % Normal 20.5-60.0 [facility] Comment on above: Performed By: #### C BC ####[facility] Gghwfisyfg9665 [place] [address]DrSkylar Leal MANUAL DIFF REQ NO Normal [facility] Comment on above: Performed By: #### C BC ####[facility] Laiwkeubng450[address] [place] [address]DrSkylar Leal MCH (RBC) [Entitic mass] 30.6 pg Normal 25.9-34.0 [facility] Comment on above: Performed By: #### C BC ####[facility] Dbtwomcpvz8913 [place] [address]Dr. Farhat Leal MCHC (RBC) [Mass/Vol] 33.1 g/dL Normal 29.9-35.2 [facility] Comment on above: Performed By: #### C BC ####[facility] Pmzdzalkpj3635[address] [place], [place] [address]DrSkylar Leal MCV (RBC) [Entitic vol] 92.4 fL Normal 80.0-94.0 [facility] Comment on above: Performed By: #### C BC ####[facility] Saacxtbvxr4084 [place] [address]DrSkylar Leal MONO # 0.8 103/ul Normal 0.3-0.8 [facility] Comment on above: Performed By: #### C BC ####[facility] Gsikqeqsze7727[address] [place], [place] [address]DrSkylar Leal Monocytes/100 WBC (Bld) 10.6 % Normal 1.7-12.0 [facility] Comment on above: Performed By: #### C BC ####[facility] Livyddlraj2137[address] [place], [place] [address]DrSkylar Leal NEUT # 3.2 103/ul Normal 1.4-6.5 [facility] Comment on above: Performed By: #### C BC ####[facility] Koeaomodid14[address] [place] [address]DrSkylar Leal Neutrophils/100 WBC (Bld) 42.1 % Critically low 43.0-75.0 [facility] Comment on above: Performed By: #### C BC ####[facility] Bhukswgwnh2756[address] [place], [place] [address]DrSkylar Leal Platelet mean volume (Bld) [Entitic vol] 10.6 fL Normal 9.5-13.5 [facility] Comment on above: Performed By: #### C BC ####[facility] Zzwesminja043[address] [place], [place] [address]DrSkylar Leal PLT 187 103/ul Normal 150-450 [facility] Comment on above: Performed By: #### C BC ####[facility] Ssjkhszasv770[address] [place], [place] [address]DrSkylar Leal RBC 3.69 106/ul Critically low 4.70-6.10 [facility] Comment on above: Performed By: #### C BC ####[facility] G[address]owyawoly[address] [place], [place] [address]DrSkylar Leal WBC 7.7 103/ul Normal 4.0-11.0 [facility] Comment on above: Performed By: #### C BC ####[facility] Ukihlctleu7085[address] [place], [place] [address]Dr. Farhat Leal PROF 14(COMP METB)on 023 Albumin [Mass/Vol] 2.5 g/dL Critically low 3.4-5.0 [facility] Comment on above: Performed By: #### C MP ####[facility] Mdvqltzcvk266[address] [place], [place] [address]DrSkylar Leal Albumin/Globulin [Mass ratio] 0.8 {ratio} Normal [facility] Comment on above: Performed By: #### C MP ####[facility] Elhqrjlfoq8[address] [place], [place] [address]Dr. Farhat Leal ALP [Catalytic activity/Vol] 60 U/L Normal 46-116 [facility] Comment on above: Performed By: #### C MP ####[facility] Ptbovenhlk2332 [place] [address]Dr. Farhat Leal ALT [Catalytic activity/Vol] 16 U/L Normal 16-63 [facility] Comment on above: Performed By: #### C MP ####[facility] Guiniiykey5054[address] [place], [place] [address]Dr. Farhat Elvis Anion gap [Moles/Vol] 9.1 mmol/L Normal [facility] Comment on above: Performed By: #### C MP ####[facility] Xdletsxzax985[address] [place], [place] [address]Dr. Farhat Elvis AST [Catalytic activity/Vol] 31 U/L Normal 15-37 [facility] Comment on above: Performed By: #### C MP ####[facility] Ryxyigwapg857[address] [place], [place] [address]Dr. Farhat Elvis Bilirubin [Mass/Vol] 0.3 mg/dL Normal 0.2-1.0 [facility] Comment on above: Performed By: #### C MP ####[facility] Qztgicigue5022[address] [place], [place] [address]Dr. Farhat Elvis Calcium [Mass/Vol] 8.2 mg/dL Critically low 8.5-10.1 [facility] Comment on above: Performed By: #### C MP ####[facility] Lazxbqewsj297[address] [place], [place] [address]Dr. Farhat Elvis Chloride [Moles/Vol] 106 mmol/L Normal 98-107 [facility] Comment on above: Performed By: #### C MP ####[facility] Weiqnccdwx1529[address] [place], [place] [address]Dr. Farhat Leal CO2 [Moles/Vol] 27.0 mmol/L Normal 21.0-32.0 [facility] Comment on above: Performed By: #### C MP ####[facility] Ozcsqbcwyf3938[address] [place], [place] [address]Dr. Madelynlorri Leal Creatinine [Mass/Vol] 1.51 mg/dL Critically high 0.70-1.30 [facility] Comment on above: Performed By: #### C MP ####[facility] Axiabzybyz[address] [place] [address]Dr. Farhat Elvis EGFR-AF BAHAMIAN 55 mL/min/1.73m2 Critically low >=60 [facility] Comment on above: Performed By: #### C MP ####[facility] Ycxllsagjs5519 [place] [address]Dr. Farhat Elvis EGFR-NON AF BAHAMIAN 45 mL/min/1.73m2 Critically low >=60 [facility] Comment on above: Performed By: #### C MP ####[facility] Wmzsoyhbyh70[address] [place], [place] [address]Dr. Farhat Leal Globulin (S) [Mass/Vol] 3.2 g/dL Normal [facility] Comment on above: Performed By: #### C MP ####[facility] Dgeqhkzoah3347[address] [place], [place] [address]Dr. Farhat Leal Glucose [Mass/Vol] 165 mg/dL Critically high 74-106 [facility] Comment on above: Performed By: #### C MP ####[facility] Pidxsfpwtw8186[address] [place], [place] [address]Dr. Farhat Leal Potassium [Moles/Vol] 4.1 mmol/L Normal 3.5-5.1 [facility] Comment on above: Performed By: #### C MP ####[facility] Wwawdsuqrc2784[address] [place], [place] [address]Dr. Farhat Leal Protein [Mass/Vol] 5.7 g/dL Critically low 6.4-8.2 [facility] Comment on above: Performed By: #### C MP ####[facility] Kcxqilfbla0486[address] [place], [place] [address]Dr. Farhat Leal Sodium [Moles/Vol] 138 mmol/L Normal 136-145 [facility] Comment on above: Performed By: #### C MP ####[facility] Yoaxzlknnz6256[address] [place], [place] [address]Dr. Farhat Leal Urea nitrogen [Mass/Vol] 51.0 mg/dL Critically high 7.0-18.0 [facility] Comment on above: Performed By: #### C MP ####[facility] Dgvzmruqov8[address] [place] [address]Dr. Farhat Leal Urea nitrogen/Creatinine [Mass ratio] 33.8 mg/mg Normal [facility] Comment on above: Performed By: #### C MP ####[facility] Qunuxamkiy6[address] [place], [place] [address]Dr. Farhat Leal FK506 (TACROLIMUS) WHOLE BLO ODon 06-15-2022 Tacrolimus (FK506), Blood 16.4 ng/mL Normal 2.0-20.0 [facility] Comment on above: Result Comment: Trou gh (immediately following transplant) 15.0 . Trough (steady state, 2 weeks or more after transplant): 3.0 - 8.0 . Performed by LC-MS/MS technology. Performed By: #### F K506T ####[facility] Urjvgumhyc[address] [place], [place] [address]Dr. Farhat Leal PROTIMEon 06-15-2022 INR Coag (PPP) [Relative time] 1.64 {INR} Normal [facility] Comment on above: Performed By: #### P T ####[facility] Sdwlvijqvx13[address] [place], [place] [address]Dr. Farhat Leal INR GUIDELINES SEE BELOW Normal [facility] Comment on above: Result Comment: MALINA RED INR: 2.0 - 3.0 CONDITIONS NOT LISTED BELOW 2.5 - 3.5 FOR PROSTHETIC HEART VALVE REPLACEMENT 2.5 - 3.5 RECURRENT THROMBOSIS Performed By: #### P T ####[facility] Dkrpzrksjc6[address] [place], [place] [address]Dr. Farhat Leal PT Coag (PPP) [Time] 16.9 s Critically high 9.0-11.6 [facility] Comment on above: Performed By: #### P T ####[facility] Urfkeqjwbu[address] [place], [place] [address]Dr. Farhat Leal CBC AUTO DIFFon 06-12-2022 BASO # 0.0 103/ul Normal 0.0-0.1 [facility] Comment on above: Performed By: #### C BC ####[facility] Yygtbxwcte2237 [place] [address]Dr. Farhat Leal Basophils/100 WBC (Bld) 0.4 % Normal 0.2-2.0 [facility] Comment on above: Performed By: #### C BC ####[facility] Becuoiwpzh96[address] [place], [place] [address]Dr. Farhat Leal EO # 0.4 103/ul Normal 0.0-0.7 [facility] Comment on above: Performed By: #### C BC ####[facility] Knyszkccbc94[address] [place], [place] [address]Dr. Farhat Leal Eosinophils/100 WBC (Bld) 5.4 % Normal 0.9-7.0 [facility] Comment on above: Performed By: #### C BC ####[facility] Jkeciaojnu5438[address] [place], [place] [address]Dr. Farhat Leal Erythrocyte distribution width (RBC) [Ratio] 14.7 % Normal 11.0-15.0 [facility] Comment on above: Performed By: #### C BC ####[facility] Sgypcewycf[address] [place], [place] [address]Dr. Farhat Leal Hematocrit (Bld) [Volume fraction] 34.8 % Critically low 42.0-54.0 [facility] Comment on above: Performed By: #### C BC ####[facility] Diplvlzpop5648[address] [place], [place] [address]Dr. Farhat Leal Hemoglobin (Bld) [Mass/Vol] 11.7 g/dL Critically low 14.0-18.0 [facility] Comment on above: Performed By: #### C BC ####[facility] Btzkmhhbjo25[address] [place], [place] [address]Dr. Farhat Leal IG # 0.02 10e3/ul Normal 0.00-0.03 [facility] Comment on above: Performed By: #### C BC ####[facility] Ynwpxioetx74[address] [place], [place] [address]Dr. Farhat Leal IG % 0.3 % Normal 0.0-0.5 [facility] Comment on above: Performed By: #### C BC ####[facility] Vxkijhnieg76[address] [place] [id number]. Farhat Leal LYMPH # 2.5 103/ul Normal 1.2-3.8 [facility] Comment on above: Performed By: #### C BC ####[facility] Wqtvkaquwu9464 [place] [id number]. Farhat Leal Lymphocytes/100 WBC (Bld) 36.8 % Normal 20.5-60.0 [facility] Comment on above: Performed By: #### C BC ####[facility] Hloqtgqfpe6760 [place] [address]Dr. Farhat Leal MANUAL DIFF REQ NO Normal [facility] Comment on above: Performed By: #### C BC ####[facility] Rtiactxwsm7476 [place] [id number]. Farhat Leal MCH (RBC) [Entitic mass] 30.9 pg Normal 25.9-34.0 [facility] Comment on above: Performed By: #### C BC ####[facility] Wlyodzklvq5005 [place] [id number]. Farhta Leal MCHC (RBC) [Mass/Vol] 33.6 g/dL Normal 29.9-35.2 [facility] Comment on above: Performed By: #### C BC ####[facility] Fuareckcfm[address] [place], [place] [address]Dr. Farhat Leal MCV (RBC) [Entitic vol] 91.8 fL Normal 80.0-94.0 [facility] Comment on above: Performed By: #### C BC ####[facility] Bsvcspkmvc5518 [place] [id number] Leal MONO # 0.8 103/ul Normal 0.3-0.8 [facility] Comment on above: Performed By: #### C BC ####[facility] Zffuzzahen0870 [place] [id number]. Farhat Leal Monocytes/100 WBC (Bld) 11.9 % Normal 1.7-12.0 [facility] Comment on above: Performed By: #### C BC ####[facility] Ogknaqealj0917 [place] [address]Dr. Farhat Leal NEUT # 3.1 103/ul Normal 1.4-6.5 [facility] Comment on above: Performed By: #### C BC ####[facility] Swoogafpov6173 [place] [id number]. Farhat Leal Neutrophils/100 WBC (Bld) 45.2 % Normal 43.0-75.0 [facility] Comment on above: Performed By: #### C BC ####[facility] Vekxwieeah5797 [place] [address]Dr. Farhat Leal Platelet mean volume (Bld) [Entitic vol] 10.5 fL Normal 9.5-13.5 [facility] Comment on above: Performed By: #### C BC ####[facility] Veoaddbplh5340 [place] [address]Dr. Farhat Leal PLT 175 103/ul Normal 150-450 [facility] Comment on above: Performed By: #### C BC ####[facility] Cmqmogxyuv9126[address] [place], [place] [address]Dr. Farhat Leal RBC 3.79 106/ul Critically low 4.70-6.10 [facility] Comment on above: Performed By: #### C BC ####[facility] Fqdknlsxzd0639 [place] [address]Dr. Farhat Leal WBC 6.8 103/ul Normal 4.0-11.0 [facility] Comment on above: Performed By: #### C BC ####[facility] Raziynwdvv5168 [place] [id number]. Farhat Leal MAGNESIUMon 06-12-2022 Magnesium [Mass/Vol] 1.6 mg/dL Critically low 1.8-2.4 [facility] Comment on above: Performed By: #### C MP, MG, PHOS ####[facility] Gpbhbzzxss5581 [place] [address]Dr. Farhat Leal PHOSPHORUSon 06-12-2022 Phosphate [Mass/Vol] 3.8 mg/dL Normal 2.6-4.7 [facility] Comment on above: Performed By: #### C MP, MG, PHOS ####[facility] Wacwbkwjbo5078 [place] [address]Dr. Farhat Leal PROF 14(COMP METB)on 023 Albumin [Mass/Vol] 2.6 g/dL Critically low 3.4-5.0 [facility] Comment on above: Performed By: #### C MP, MG, PHOS ####[facility] Prjwobkdyt6968 [place] [address]Dr. Farhat Leal Albumin/Globulin [Mass ratio] 0.8 {ratio} Normal [facility] Comment on above: Performed By: #### C MP, MG, PHOS ####[facility] Gcxidwllhd8187 [place] [address]Dr. Farhat Leal ALP [Catalytic activity/Vol] 64 U/L Normal 46-116 [facility] Comment on above: Performed By: #### C MP, MG, PHOS ####[facility] Sskyxvkuld0696 [place] [address]Dr. Farhat Leal ALT [Catalytic activity/Vol] 18 U/L Normal 16-63 [facility] Comment on above: Performed By: #### C MP, MG, PHOS ####[facility] Imzmfbwvri5959 [place] [address]Dr. Farhat Leal Anion gap [Moles/Vol] 12.9 mmol/L Normal [facility] Comment on above: Performed By: #### C MP, MG, PHOS ####[facility] Hpyygdiund0813 [place] [address]Dr. Farhat Leal AST [Catalytic activity/Vol] 18 U/L Normal 15-37 [facility] Comment on above: Performed By: #### C MP, MG, PHOS ####[facility] Oftffatqkd9011 [place] [address]Dr. Farhat Leal Bilirubin [Mass/Vol] 0.4 mg/dL Normal 0.2-1.0 [facility] Comment on above: Performed By: #### C MP, MG, PHOS ####[facility] Tduviwcenh2256 [place] [address]Dr. Farhat Leal Calcium [Mass/Vol] 8.7 mg/dL Normal 8.5-10.1 [facility] Comment on above: Performed By: #### C MP, MG, PHOS ####[facility] Duqjuiipdu4612[address] [place], [place] [address]Dr. Farhat Leal Chloride [Moles/Vol] 105 mmol/L Normal 98-107 [facility] Comment on above: Performed By: #### C MP, MG, PHOS ####[facility] Idyaxvpggn4286[address] [place], [place] [address]Dr. Farhat Leal CO2 [Moles/Vol] 27.9 mmol/L Normal 21.0-32.0 [facility] Comment on above: Performed By: #### C MP, MG, PHOS ####[facility] Ldxlqpikki396[address] [place], [place] [address]Dr. Farhat Leal Creatinine [Mass/Vol] 1.53 mg/dL Critically high 0.70-1.30 [facility] Comment on above: Performed By: #### C MP, MG, PHOS ####[facility] Txuaofheet2438[address] [place], [place] [address]Dr. aFrhat Leal EGFR-AF BAHAMIAN 54 mL/min/1.73m2 Critically low >=60 [facility] Comment on above: Performed By: #### C MP, MG, PHOS ####[facility] Hgozudotho33[address] [place], [place] [address]Dr. Farhat Leal EGFR-NON AF BAHAMIAN 44 mL/min/1.73m2 Critically low >=60 [facility] Comment on above: Performed By: #### C MP, MG, PHOS ####[facility] Koaxfxcqhy7295[address] [place], [place] [address]Dr. Farhat Leal Globulin (S) [Mass/Vol] 3.4 g/dL Normal [facility] Comment on above: Performed By: #### C MP, MG, PHOS ####[facility] Gsqjweejgf9658 [place] [address]Dr. Farhat Leal Glucose [Mass/Vol] 179 mg/dL Critically high 74-106 T [facility] Comment on above: Performed By: #### C MP, MG, PHOS ####[facility] Vrntraupsa1092 [place] [address]Dr. Farhat Leal Potassium [Moles/Vol] 3.8 mmol/L Normal 3.5-5.1 [facility] Comment on above: Performed By: #### C MP, MG, PHOS ####[facility] Wznmeolvtn3348 [place] [address]Dr. Farhat Leal Protein [Mass/Vol] 6.0 g/dL Critically low 6.4-8.2 [facility] Comment on above: Performed By: #### C MP, MG, PHOS ####[facility] Weefqtltam3074 [place] [address]Dr. Farhat Leal Sodium [Moles/Vol] 142 mmol/L Normal 136-145 [facility] Comment on above: Performed By: #### C MP, MG, PHOS ####[facility] Hovmvrpuus0469 [place] [address]Dr. Farhat Leal Urea nitrogen [Mass/Vol] 56.0 mg/dL Critically high 7.0-18.0 [facility] Comment on above: Performed By: #### C MP, MG, PHOS ####[facility] Akwhthnpxy6218[address] [place], [place] [address]Dr. Farhat Leal Urea nitrogen/Creatinine [Mass ratio] 36.6 mg/mg Normal [facility] Comment on above: Performed By: #### C MP, MG, PHOS ####[facility] Hxpwzkmpuy0298 [place] [address]Dr. Farhat Leal FK506 (TACROLIMUS) WHOLE BLO ODon 06-08-2022 Tacrolimus (FK506), Blood 13.2 ng/mL Normal 2.0-20.0 [facility] Comment on above: Result Comment: Trou gh (immediately following transplant) 15.0 . Trough (steady state, 2 weeks or more after transplant): 3.0 - 8.0 . Performed by LC-MS/MS technology. Performed By: #### F K506T ####[facility] Yxzckdpkul4096 [place] [address]Dr. Farhat Elvis CBC AUTO DIFFon 06-05-2022 BASO # 0.1 103/ul Normal 0.0-0.1 [facility] Comment on above: Performed By: #### C BC ####[facility] Jsscxixgcy3478[address] [place], [place] [address]DrSkylar Leal Basophils/100 WBC (Bld) 0.8 % Normal 0.2-2.0 [facility] Comment on above: Performed By: #### C BC ####[facility] Ulxscqkirl036[address] [place], [place] [address]Dr. Farhat Leal EO # 0.3 103/ul Normal 0.0-0.7 [facility] Comment on above: Performed By: #### C BC ####[facility] Uxtzbpiaig9467[address] [place], [place] [address]Dr. Farhat Leal Eosinophils/100 WBC (Bld) 4.7 % Normal 0.9-7.0 [facility] Comment on above: Performed By: #### C BC ####[facility] Lycrpwvovp2139[address] [place], [place] [address]Dr. Farhat Leal Erythrocyte distribution width (RBC) [Ratio] 15.1 % Critically high 11.0-15.0 [facility] Comment on above: Performed By: #### C BC ####[facility] Nxghsxwlmu8[address] [place], [place] [address]Dr. Farhat Leal Hematocrit (Bld) [Volume fraction] 35.5 % Critically low 42.0-54.0 [facility] Comment on above: Performed By: #### C BC ####[facility] Otficrcdgk5[address] [place], [place] [address]Dr. Farhat Leal Hemoglobin (Bld) [Mass/Vol] 11.7 g/dL Critically low 14.0-18.0 [facility] Comment on above: Performed By: #### C BC ####[facility] Zzfntmvkwq5506[address] [place], [place] [address]Dr. Farhat Leal IG # 0.01 10e3/ul Normal 0.00-0.03 [facility] Comment on above: Performed By: #### C BC ####[facility] Zjzamrohhy7989 [place] [address]DrSkylar Leal IG % 0.2 % Normal 0.0-0.5 [facility] Comment on above: Performed By: #### C BC ####[facility] Ajbopcvmdc4747 [place] [address]DrSkylar Leal LYMPH # 2.1 103/ul Normal 1.2-3.8 [facility] Comment on above: Performed By: #### C BC ####[facility] Vgztxbgoob9150 [place] [address]DrSkylar Leal Lymphocytes/100 WBC (Bld) 34.5 % Normal 20.5-60.0 [facility] Comment on above: Performed By: #### C BC ####[facility] Kurlitxlvj[address] [place], [place] [address]DrSkylar Leal MANUAL DIFF REQ NO Normal [facility] Comment on above: Performed By: #### C BC ####[facility] Nuzworcnvn40[address] [place], [place] [address]DrSkylar Leal MCH (RBC) [Entitic mass] 30.6 pg Normal 25.9-34.0 [facility] Comment on above: Performed By: #### C BC ####[facility] Lgsunqtqtn6317 [place] [address]DrSkylar Leal MCHC (RBC) [Mass/Vol] 33.0 g/dL Normal 29.9-35.2 [facility] Comment on above: Performed By: #### C BC ####[facility] Otqokghfbi3739 [place] [address]DrSkylar Leal MCV (RBC) [Entitic vol] 92.9 fL Normal 80.0-94.0 [facility] Comment on above: Performed By: #### C BC ####[facility] Isyuskuymq057[address] [place], [place] [address]DrSkylar Leal MONO # 0.7 103/ul Normal 0.3-0.8 [facility] Comment on above: Performed By: #### C BC ####[facility] Towsfxaioy8883 [place] [address]Dr. Farhat Leal Monocytes/100 WBC (Bld) 11.4 % Normal 1.7-12.0 [facility] Comment on above: Performed By: #### C BC ####[facility] Agjpcpawww6120 [place] [address]Dr. Farhat Leal NEUT # 2.9 103/ul Normal 1.4-6.5 [facility] Comment on above: Performed By: #### C BC ####[facility] Wokfgsbuww7379 [place] [address]Dr. Farhat Leal Neutrophils/100 WBC (Bld) 48.4 % Normal 43.0-75.0 [facility] Comment on above: Performed By: #### C BC ####[facility] Onfnvjziey6226[address] [place], [place] [address]Dr. Farhat Leal Platelet mean volume (Bld) [Entitic vol] 10.7 fL Normal 9.5-13.5 [facility] Comment on above: Performed By: #### C BC ####[facility] Yxmgbrlycw9933 [place] [address]Dr. Farhat Leal PLT 185 103/ul Normal 150-450 [facility] Comment on above: Performed By: #### C BC ####[facility] Gwiivlazse6804 [place] [address]Dr. Farhat Leal RBC 3.82 106/ul Critically low 4.70-6.10 [facility] Comment on above: Performed By: #### C BC ####[facility] Tkrlftdqxz5382 [place] [id number]. Farhat Leal WBC 6.0 103/ul Normal 4.0-11.0 [facility] Comment on above: Performed By: #### C BC ####[facility] Cczribmfsv8264 [place] [address]Dr. Farhat Leal MAGNESIUMon 06-05-2022 Magnesium [Mass/Vol] 1.9 mg/dL Normal 1.8-2.4 [facility] Comment on above: Performed By: #### P HOS, MG ####[facility] Qzdtkognor6444 [place] [address]Dr. Farhat Leal PHOSPHORUSon 06-05-2022 Phosphate [Mass/Vol] 4.4 mg/dL Normal 2.6-4.7 [facility] Comment on above: Performed By: #### P HOS, MG ####[facility] Xfjgzznvtk1052 [place] [address]DrSkylar Leal PROTIMEon 06-05-2022 INR Coag (PPP) [Relative time] 2.16 {INR} Normal [facility] Comment on above: Performed By: #### P T ####[facility] Yshjcxpbba045[address] [place], [place] [address]DrSkylar Leal INR GUIDELINES SEE BELOW Normal [facility] Comment on above: Result Comment: MALINA RED INR: 2.0 - 3.0 CONDITIONS NOT LISTED BELOW 2.5 - 3.5 FOR PROSTHETIC HEART VALVE REPLACEMENT 2.5 - 3.5 RECURRENT THROMBOSIS Performed By: #### P T ####[facility] Uewmvzxrjj496[address] [place], [place] [address]DrSkylar Leal PT Coag (PPP) [Time] 21.9 s Critically high 9.0-11.6 [facility] Comment on above: Performed By: #### P T ####[facility] Zwskeixkxm[address] [place], [place] [address]DrSkylar Leal FK506 (TACROLIMUS) WHOLE BLO ODon 06-01-2022 Tacrolimus (FK506), Blood 26.4 ng/mL Invalid Interpretation Code 2.0-20.0 [facility] Comment on above: Result Comment: Trou gh (immediately following transplant) 15.0 . Trough (steady state, 2 weeks or more after transplant): 3.0 - 8.0 . Performed by LC-MS/MS technology.Patient drug level exceeds published reference range. Evaluateclinically for signs of potential toxicity. Performed By: #### F K506T ####[facility] Obxgfhxiru7740[address] [place], [place] [address]DrSkylar Leal CBC AUTO DIFFon 05-29-2022 BASO # 0.0 103/ul Normal 0.0-0.1 [facility] Comment on above: Performed By: #### C BC ####[facility] Knujmaxcjv6333 [place] [address]Dr. Farhat Leal Basophils/100 WBC (Bld) 0.6 % Normal 0.2-2.0 [facility] Comment on above: Performed By: #### C BC ####[facility] Eccekvmfco7644 [place] [address]Dr. Farhat Leal EO # 0.3 103/ul Normal 0.0-0.7 [facility] Comment on above: Performed By: #### C BC ####[facility] Prwhcihtif3284[address] [place], [place] [address]Dr. Farhat Leal Eosinophils/100 WBC (Bld) 4.7 % Normal 0.9-7.0 [facility] Comment on above: Performed By: #### C BC ####[facility] Egruofziwr0819[address] [place], [place] [address]Dr. Farhat Leal Erythrocyte distribution width (RBC) [Ratio] 15.3 % Critically high 11.0-15.0 [facility] Comment on above: Performed By: #### C BC ####[facility] Lhyyvnlowy6[address] [place], [place] [address]Dr. Farhat Leal Hematocrit (Bld) [Volume fraction] 36.6 % Critically low 42.0-54.0 [facility] Comment on above: Performed By: #### C BC ####[facility] Egwvmelbax040[address] [place], [place] [address]Dr. Farhat Leal Hemoglobin (Bld) [Mass/Vol] 12.3 g/dL Critically low 14.0-18.0 [facility] Comment on above: Performed By: #### C BC ####[facility] Zdgqxetntd9632[address] [place], [place] [address]Dr. Farhat Leal IG # 0.02 10e3/ul Normal 0.00-0.03 [facility] Comment on above: Performed By: #### C BC ####[facility] Pdkbmkvriv4335 [place] [id number]. Farhat Leal IG % 0.3 % Normal 0.0-0.5 [facility] Comment on above: Performed By: #### C BC ####[facility] Yeowgmhytp7835 [place] [id number]. Farhat Leal LYMPH # 2.8 103/ul Normal 1.2-3.8 [facility] Comment on above: Performed By: #### C BC ####[facility] Mthmidslca8246 [place] [id number]. Farhat Elvis Lymphocytes/100 WBC (Bld) 44.4 % Normal 20.5-60.0 [facility] Comment on above: Performed By: #### C BC ####[facility] Dmbbuexmmh8850 [place] [phone]. Farhat Elvis MANUAL DIFF REQ NO Normal [facility] Comment on above: Performed By: #### C BC ####[facility] Pqcohpjdth4639 [place] [phone]. Farhat Leal MCH (RBC) [Entitic mass] 30.4 pg Normal 25.9-34.0 [facility] Comment on above: Performed By: #### C BC ####[facility] Xzqbhybnqw8916 [place] [phone]. Farhat Leal MCHC (RBC) [Mass/Vol] 33.6 g/dL Normal 29.9-35.2 [facility] Comment on above: Performed By: #### C BC ####[facility] Qucufmopbr2425 [place] [id number]. Farhat Leal MCV (RBC) [Entitic vol] 90.4 fL Normal 80.0-94.0 [facility] Comment on above: Performed By: #### C BC ####[facility] Ypazdylnaj5479 [place] [address]Dr. Farhat Elvis MONO # 0.7 103/ul Normal 0.3-0.8 [facility] Comment on above: Performed By: #### C BC ####[facility] Ysyoeprgso8786 [place] [phone]. Farhat Leal Monocytes/100 WBC (Bld) 10.7 % Normal 1.7-12.0 [facility] Comment on above: Performed By: #### C BC ####[facility] Tmduklohom6010 [place] [phone]. Farhat Leal NEUT # 2.5 103/ul Normal 1.4-6.5 [facility] Comment on above: Performed By: #### C BC ####[facility] Zakofzpnbf0497 [place] [address]Dr. Farhat Leal Neutrophils/100 WBC (Bld) 39.3 % Critically low 43.0-75.0 [facility] Comment on above: Performed By: #### C BC ####[facility] Grcszyuhjv5481 [place] [address]Dr. Farhat Leal Platelet mean volume (Bld) [Entitic vol] 10.5 fL Normal 9.5-13.5 [facility] Comment on above: Performed By: #### C BC ####[facility] Ujvcwsoddb5199 [place] [address]Dr. Farhat Leal PLT 190 103/ul Normal 150-450 [facility] Comment on above: Performed By: #### C BC ####[facility] Kcrmvdpvsm4051 [place] [address]Dr. Farhat Leal RBC 4.05 106/ul Critically low 4.70-6.10 [facility] Comment on above: Performed By: #### C BC ####[facility] Quufdsrdur8910 [place] [id number]. Farhat Leal WBC 6.4 103/ul Normal 4.0-11.0 [facility] Comment on above: Performed By: #### C BC ####[facility] Lfvabvjoni0850 [place] [address]Dr. Farhat Elvis PROF 14(COMP METB)on 023 Albumin [Mass/Vol] 2.5 g/dL Critically low 3.4-5.0 [facility] Comment on above: Performed By: #### C MP ####[facility] Grikymrrwj2929 [place] [address]Dr. Farhat Leal Albumin/Globulin [Mass ratio] 0.8 {ratio} Normal [facility] Comment on above: Performed By: #### C MP ####[facility] Yimxnnxmqu5683 [place] [address]Dr. Farhat Leal ALP [Catalytic activity/Vol] 61 U/L Normal 46-116 [facility] Comment on above: Performed By: #### C MP ####[facility] Vgovqcskxe7822 [place] [address]Dr. Farhat Leal ALT [Catalytic activity/Vol] 16 U/L Normal 16-63 [facility] Comment on above: Performed By: #### C MP ####[facility] Nmqadcofzt[address] [place], [place] [address]Dr. Farhat Leal Anion gap [Moles/Vol] 12.3 mmol/L Normal [facility] Comment on above: Performed By: #### C MP ####[facility] Ugwwxazhtm6660[address] [place], [place] [address]Dr. Farhat Leal AST [Catalytic activity/Vol] 18 U/L Normal 15-37 [facility] Comment on above: Performed By: #### C MP ####[facility] Usgkmmlqow74[address] [place], [place] [address]Dr. Farhat Leal Bilirubin [Mass/Vol] 0.5 mg/dL Normal 0.2-1.0 [facility] Comment on above: Performed By: #### C MP ####[facility] Adbwirpkdi4927[address] [place], [place] [address]Dr. Farhat Elvis Calcium [Mass/Vol] 8.6 mg/dL Normal 8.5-10.1 [facility] Comment on above: Performed By: #### C MP ####[facility] Oxfsudvbuk[address] [place], [place] [address]Dr. Farhat Elvis Chloride [Moles/Vol] 105 mmol/L Normal 98-107 [facility] Comment on above: Performed By: #### C MP ####[facility] Herniezahd2387[address] [place], [place] [address]Dr. Farhat Leal CO2 [Moles/Vol] 28.6 mmol/L Normal 21.0-32.0 [facility] Comment on above: Performed By: #### C MP ####[facility] Jbcyizzywy9913 [place] [address]Dr. Farhat Leal Creatinine [Mass/Vol] 1.47 mg/dL Critically high 0.70-1.30 [facility] Comment on above: Performed By: #### C MP ####[facility] Nnkzqpqflw7102 [place] [address]Dr. Farhat Leal EGFR-AF BAHAMIAN 56 mL/min/1.73m2 Critically low >=60 [facility] Comment on above: Performed By: #### C MP ####[facility] Ptrjdzxslz8469 [place] [address]Dr. Farhat Leal EGFR-NON AF BAHAMIAN 46 mL/min/1.73m2 Critically low >=60 [facility] Comment on above: Performed By: #### C MP ####[facility] Rwzbpsnqjd5665 [place] [address]Dr. Farhat Elvis Globulin (S) [Mass/Vol] 3.3 g/dL Normal [facility] Comment on above: Performed By: #### C MP ####[facility] Vkigwbxizn7686 [place] [address]Dr. Farhat Leal Glucose [Mass/Vol] 164 mg/dL Critically high 74-106 T [facility] Comment on above: Performed By: #### C MP ####[facility] Xwclxwyvyk1677 [place] [address]Dr. Farhat Elvis Potassium [Moles/Vol] 3.9 mmol/L Normal 3.5-5.1 [facility] Comment on above: Performed By: #### C MP ####[facility] Aampuaehnh9483 [place] [address]Dr. Farhat Elvis Protein [Mass/Vol] 5.8 g/dL Critically low 6.4-8.2 [facility] Comment on above: Performed By: #### C MP ####[facility] Yqdytvplnn0134 [place] [address]Dr. Farhat Leal Sodium [Moles/Vol] 142 mmol/L Normal 136-145 [facility] Comment on above: Performed By: #### C MP ####[facility] [address] [place] [address]Dr. Farhat Leal Urea nitrogen [Mass/Vol] 53.0 mg/dL Critically high 7.0-18.0 [facility] Comment on above: Performed By: #### C MP ####[facility] Tfikiifugx[address] [place], [place] [address]Dr. Farhat Leal Urea nitrogen/Creatinine [Mass ratio] 36.1 mg/mg Normal [facility] Comment on above: Performed By: #### C MP ####[facility] Gmicqqvcdk32[address] [place] [address]Dr. Farhat Leal PROTIMEon 05-29-2022 INR Coag (PPP) [Relative time] 2.41 {INR} Normal [facility] Comment on above: Performed By: #### P T ####[facility] Iazmrdadff[address] [place], [place] [address]Dr. Farhat Leal INR GUIDELINES SEE BELOW Normal [facility] Comment on above: Result Comment: MALINA RED INR: 2.0 - 3.0 CONDITIONS NOT LISTED BELOW 2.5 - 3.5 FOR PROSTHETIC HEART VALVE REPLACEMENT 2.5 - 3.5 RECURRENT THROMBOSIS Performed By: #### P T ####[facility] Gnsdahcotl[address] [place], [place] [address]Dr. Farhat Leal PT Coag (PPP) [Time] 24.3 s Critically high 9.0-11.6 [facility] Comment on above: Performed By: #### P T ####[facility] Wrofyebxpe[address] [place], [place] [address]Dr. Farhat Leal FK506 (TACROLIMUS) WHOLE BLO ODon 05-25-2022 Tacrolimus (FK506), Blood 5.1 ng/mL Normal 2.0-20.0 [facility] Comment on above: Result Comment: Trou gh (immediately following transplant) 15.0 . Trough (steady state, 2 weeks or more after transplant): 3.0 - 8.0 . Performed by LC-MS/MS technology. Performed By: #### F K506T ####[facility] Isjqnvohno[address] [place] [address]Dr. Farhat Leal CBC AUTO DIFFon 05-22-2022 BASO # 0.0 103/ul Normal 0.0-0.1 [facility] Comment on above: Performed By: #### C BC ####[facility] Iwhsxnneoe[address] [place], [place] [address]Dr. Farhat Elvis Basophils/100 WBC (Bld) 0.5 % Normal 0.2-2.0 [facility] Comment on above: Performed By: #### C BC ####[facility] Icqpsxdlid[address] [place], [place] [address]Dr. Farhat Leal EO # 0.2 103/ul Normal 0.0-0.7 [facility] Comment on above: Performed By: #### C BC ####[facility] Jjnqgyyxzs09[address] [place], [place] [address]Dr. Madelynlorri Leal Eosinophils/100 WBC (Bld) 4.0 % Normal 0.9-7.0 [facility] Comment on above: Performed By: #### C BC ####[facility] Eosxdvnqci4432[address] [place], [place] [address]Dr. Farhat Leal Erythrocyte distribution width (RBC) [Ratio] 15.5 % Critically high 11.0-15.0 [facility] Comment on above: Performed By: #### C BC ####[facility] Iazznfmgoa2289[address] [place], [place] [address]Dr. Farhat Leal Hematocrit (Bld) [Volume fraction] 34.1 % Critically low 42.0-54.0 [facility] Comment on above: Performed By: #### C BC ####[facility] Obaicixozb[address] [place], [place] [address]Dr. Farhat Leal Hemoglobin (Bld) [Mass/Vol] 11.3 g/dL Critically low 14.0-18.0 [facility] Comment on above: Performed By: #### C BC ####[facility] Vweocvuckj[address] [place], [place] [id number]. Farhat Leal IG # 0.03 10e3/ul Normal 0.00-0.03 [facility] Comment on above: Performed By: #### C BC ####[facility] Zjzrwvbuhv2848 [place] [address]Dr. Farhat Leal IG % 0.5 % Normal 0.0-0.5 [facility] Comment on above: Performed By: #### C BC ####[facility] Lstafnqinq3693 [place] [address]DrSkylar Leal LYMPH # 2.1 103/ul Normal 1.2-3.8 [facility] Comment on above: Performed By: #### C BC ####[facility] Bawqdonogu16[address] [place], [place] [address]DrSkylar Leal Lymphocytes/100 WBC (Bld) 34.6 % Normal 20.5-60.0 [facility] Comment on above: Performed By: #### C BC ####[facility] Qbvoozcquc3632[address] [place], [place] [address]DrSkylar Leal MANUAL DIFF REQ NO Normal [facility] Comment on above: Performed By: #### C BC ####[facility] Psvnzwpsxf7570[address] [place], [place] [address]DrSkylar Leal MCH (RBC) [Entitic mass] 30.3 pg Normal 25.9-34.0 [facility] Comment on above: Performed By: #### C BC ####[facility] Xthqbitjex0338[address] [place], [place] [address]DrSkylar Leal MCHC (RBC) [Mass/Vol] 33.1 g/dL Normal 29.9-35.2 [facility] Comment on above: Performed By: #### C BC ####[facility] Gkdykznltj5[address] [place], [place] [address]DrSkylar Leal MCV (RBC) [Entitic vol] 91.4 fL Normal 80.0-94.0 [facility] Comment on above: Performed By: #### C BC ####[facility] Kycyepnvxf1816[address] [place], [place] [address]DrSkylar Leal MONO # 0.7 103/ul Normal 0.3-0.8 [facility] Comment on above: Performed By: #### C BC ####[facility] Ywytseyloq[address] [place] [id number]. Farhat Leal Monocytes/100 WBC (Bld) 11.6 % Normal 1.7-12.0 [facility] Comment on above: Performed By: #### C BC ####[facility] Xdnepctbvi0283 [place] [address]Dr. Farhat Leal NEUT # 2.9 103/ul Normal 1.4-6.5 [facility] Comment on above: Performed By: #### C BC ####[facility] Bckruypcvb6631 [place] [address]DrSkylar Farhat Leal Neutrophils/100 WBC (Bld) 48.8 % Normal 43.0-75.0 [facility] Comment on above: Performed By: #### C BC ####[facility] Lnfxsdsgwz9344[address] [place], [place] [address]DrSkylar Farhat Leal Platelet mean volume (Bld) [Entitic vol] 10.9 fL Normal 9.5-13.5 [facility] Comment on above: Performed By: #### C BC ####[facility] Ujvddsmmul4447[address] [place], [place] [address]Dr. Farhat Leal PLT 186 103/ul Normal 150-450 [facility] Comment on above: Performed By: #### C BC ####[facility] Ndzbbnfdar3[address] [place] [id number] Farhat Leal RBC 3.73 106/ul Critically low 4.70-6.10 [facility] Comment on above: Performed By: #### C BC ####[facility] Qgecckuict7012 [place] [id number] Farhat Leal WBC 6.0 103/ul Normal 4.0-11.0 [facility] Comment on above: Performed By: #### C BC ####[facility] Phyvimwajy5565[address] [place], [place] [address]DrSkylar Leal PROF 14(COMP METB)on 023 Albumin [Mass/Vol] 2.7 g/dL Critically low 3.4-5.0 [facility] Comment on above: Performed By: #### C MP ####[facility] Tlwvryhaaj1832 [place] [address]Dr. Farhat Leal Albumin/Globulin [Mass ratio] 0.8 {ratio} Normal [facility] Comment on above: Performed By: #### C MP ####[facility] Osdggokbfn9119[address] [place], [place] [address]Dr. Farhat Leal ALP [Catalytic activity/Vol] 60 U/L Normal 46-116 [facility] Comment on above: Performed By: #### C MP ####[facility] Scyukkuqak3974[address] [place], [place] [address]Dr. Farhat Leal ALT [Catalytic activity/Vol] 17 U/L Normal 16-63 [facility] Comment on above: Performed By: #### C MP ####[facility] Lqnacsjidn849[address] [place], [place] [address]Dr. Farhat Leal Anion gap [Moles/Vol] 9.6 mmol/L Normal [facility] Comment on above: Performed By: #### C MP ####[facility] Tucwplwduf4444[address] [place], [place] [address]Dr. Farhat Leal AST [Catalytic activity/Vol] 14 U/L Critically low 15-37 [facility] Comment on above: Performed By: #### C MP ####[facility] Bdudcwszph1099[address] [place], [place] [address]Dr. Farhat Leal Bilirubin [Mass/Vol] 0.5 mg/dL Normal 0.2-1.0 [facility] Comment on above: Performed By: #### C MP ####[facility] Ccfuijrmeb5654[address] [place], [place] [address]Dr. Farhat Leal Calcium [Mass/Vol] 8.4 mg/dL Critically low 8.5-10.1 [facility] Comment on above: Performed By: #### C MP ####[facility] Xjeydfytvw8947[address] [place], [place] [address]Dr. Farhat Leal Chloride [Moles/Vol] 104 mmol/L Normal 98-107 [facility] Comment on above: Performed By: #### C MP ####[facility] Rjdxbrzemw20[address] [place] [address]Dr. Farhat Leal CO2 [Moles/Vol] 27.2 mmol/L Normal 21.0-32.0 [facility] Comment on above: Performed By: #### C MP ####[facility] Mdovkjzevl7166 [place] [address]Dr. Farhat Elvis Creatinine [Mass/Vol] 1.24 mg/dL Normal 0.70-1.30 [facility] Comment on above: Performed By: #### C MP ####[facility] Xrlwkiyuyi4530[address] [place], [place] [address]Dr. Farhat Elvis EGFR-AF BAHAMIAN >60 Normal >=60 [facility] Comment on above: Performed By: #### C MP ####[facility] Rsgdxdflar[address] [place] [address]Dr. Farhat Elvis EGFR-NON AF BAHAMIAN 57 mL/min/1.73m2 Critically low >=60 [facility] Comment on above: Performed By: #### C MP ####[facility] Totrfsowcb1275 [place] [address]Dr. Farhat Elvis Globulin (S) [Mass/Vol] 3.3 g/dL Normal [facility] Comment on above: Performed By: #### C MP ####[facility] Foxzcjtstj26[address] [place] [address]Dr. Farhat Elvis Glucose [Mass/Vol] 275 mg/dL Critically high 74-106 [facility] Comment on above: Performed By: #### C MP ####[facility] Smhutxdibm7384 [place] [address]Dr. Farhat Elvis Potassium [Moles/Vol] 3.8 mmol/L Normal 3.5-5.1 [facility] Comment on above: Performed By: #### C MP ####[facility] Lswxyjojsm6252 [place] [address]Dr. Madelynlorri Leal Protein [Mass/Vol] 6.0 g/dL Critically low 6.4-8.2 Th e [facility] Comment on above: Performed By: #### C MP ####[facility] Ikplriusno0720 [place] [address]Dr. Farhat Leal Sodium [Moles/Vol] 137 mmol/L Normal 136-145 [facility] Comment on above: Performed By: #### C MP ####[facility] Lrnlwfzldq7730[address] [place], [place] [address]Dr. Farhat Leal Urea nitrogen [Mass/Vol] 54.0 mg/dL Critically high 7.0-18.0 [facility] Comment on above: Performed By: #### C MP ####[facility] Otxkqfrcbs6169[address] [place], [place] [address]Dr. Farhat Leal Urea nitrogen/Creatinine [Mass ratio] 43.5 mg/mg Normal [facility] Comment on above: Performed By: #### C MP ####[facility] Ndawvgvmwx8237[address] [place], [place] [address]Dr. Farhat Leal PROTIMEon 05-22-2022 INR Coag (PPP) [Relative time] 2.27 {INR} Normal [facility] Comment on above: Performed By: #### P T ####[facility] Juxgtkboad0614[address] [place], [place] [address]Dr. Farhat Leal INR GUIDELINES SEE BELOW Normal [facility] Comment on above: Result Comment: MALINA RED INR: 2.0 - 3.0 CONDITIONS NOT LISTED BELOW 2.5 - 3.5 FOR PROSTHETIC HEART VALVE REPLACEMENT 2.5 - 3.5 RECURRENT THROMBOSIS Performed By: #### P T ####[facility] Ysanokurok[address] [place], [place] [address]Dr. Farhat Leal PT Coag (PPP) [Time] 23.0 s Critically high 9.0-11.6 [facility] Comment on above: Performed By: #### P T ####[facility] Dpwfjroopj465[address] [place], [place] [address]Dr. Farhat Leal FK506 (TACROLIMUS) WHOLE BLO ODon 05-19-2022 Tacrolimus (FK506), Blood 7.8 ng/mL Normal 2.0-20.0 [facility] Comment on above: Result Comment: Trou gh (immediately following transplant) 15.0 . Trough (steady state, 2 weeks or more after transplant): 3.0 - 8.0 . Performed by LC-MS/MS technology. Performed By: #### F K506T ####[facility] Ozyjslymmf8614[address] [place], [place] [address]Dr. Farhat Leal CBC AUTO DIFFon 05-15-2022 BASO # 0.0 103/ul Normal 0.0-0.1 [facility] Comment on above: Performed By: #### C BC ####[facility] Smkvxiojsz1848[address] [place], [place] [address]Dr. Farhat Leal Basophils/100 WBC (Bld) 0.4 % Normal 0.2-2.0 [facility] Comment on above: Performed By: #### C BC ####[facility] Dsshaokljv12[address] [place], [place] [address]Dr. Farhat Leal EO # 0.2 103/ul Normal 0.0-0.7 [facility] Comment on above: Performed By: #### C BC ####[facility] Hekgxdxxzp941[address] [place], [place] [address]Dr. Farhat Leal Eosinophils/100 WBC (Bld) 3.0 % Normal 0.9-7.0 [facility] Comment on above: Performed By: #### C BC ####[facility] Iqmnwvhivn6[address] [place], [place] [address]Dr. Farhat Leal Erythrocyte distribution width (RBC) [Ratio] 15.7 % Critically high 11.0-15.0 [facility] Comment on above: Performed By: #### C BC ####[facility] Zhwaqrjkpa[address] [place], [place] [address]Dr. Farhat Leal Hematocrit (Bld) [Volume fraction] 36.8 % Critically low 42.0-54.0 [facility] Comment on above: Performed By: #### C BC ####[facility] Jrrlqxpocm364[address] [place], [place] [address]Dr. Frahat Leal Hemoglobin (Bld) [Mass/Vol] 12.4 g/dL Critically low 14.0-18.0 [facility] Comment on above: Performed By: #### C BC ####[facility] Pdbdbxoxgu8237 [place] [address]Dr. Farhat Leal IG # 0.01 10e3/ul Normal 0.00-0.03 [facility] Comment on above: Performed By: #### C BC ####[facility] Hznoyhqexl8771 [place] [address]Dr. Farhat Leal IG % 0.1 % Normal 0.0-0.5 [facility] Comment on above: Performed By: #### C BC ####[facility] Xxynxdwknt3422 [place] [address]Dr. Farhat Leal LYMPH # 2.4 103/ul Normal 1.2-3.8 [facility] Comment on above: Performed By: #### C BC ####[facility] Yoocycqdbi6022 [place] [address]DrSkylar Leal Lymphocytes/100 WBC (Bld) 35.6 % Normal 20.5-60.0 [facility] Comment on above: Performed By: #### C BC ####[facility] Vflawnwpmg6797 [place] [address]DrSkylar Leal MANUAL DIFF REQ NO Normal [facility] Comment on above: Performed By: #### C BC ####[facility] Ciipfuoywd6761 [place] [address]Dr. Farhat Leal MCH (RBC) [Entitic mass] 30.1 pg Normal 25.9-34.0 [facility] Comment on above: Performed By: #### C BC ####[facility] Eyeamvgaje8037 [place] [address]Dr. Farhat Leal MCHC (RBC) [Mass/Vol] 33.7 g/dL Normal 29.9-35.2 [facility] Comment on above: Performed By: #### C BC ####[facility] Azxhaimjhj8467 [place] [address]Dr. Farhat Leal MCV (RBC) [Entitic vol] 89.3 fL Normal 80.0-94.0 [facility] Comment on above: Performed By: #### C BC ####[facility] Yqcmztvsfz4363 [place] [id number]. Farhat Leal MONO # 0.7 103/ul Normal 0.3-0.8 [facility] Comment on above: Performed By: #### C BC ####[facility] Gazuslonhy8395 [place] [id number]. Farhat Leal Monocytes/100 WBC (Bld) 10.8 % Normal 1.7-12.0 [facility] Comment on above: Performed By: #### C BC ####[facility] Pzttygppag7503 [place] [id number]. Farhat Leal NEUT # 3.4 103/ul Normal 1.4-6.5 [facility] Comment on above: Performed By: #### C BC ####[facility] Vnhpsqhuok5782 [place] [address]Dr. Farhat Leal Neutrophils/100 WBC (Bld) 50.1 % Normal 43.0-75.0 [facility] Comment on above: Performed By: #### C BC ####[facility] Knwkpdodyg2727 [place] [id number]. Farhat Leal Platelet mean volume (Bld) [Entitic vol] 10.2 fL Normal 9.5-13.5 [facility] Comment on above: Performed By: #### C BC ####[facility] Fpsfrlutgw0244 [place] [id number]. Farhat Leal PLT 190 103/ul Normal 150-450 [facility] Comment on above: Performed By: #### C BC ####[facility] Qxgnimqkyk4244 [place] [id number]. Farhat Leal RBC 4.12 106/ul Critically low 4.70-6.10 The [facility] Comment on above: Performed By: #### C BC ####[facility] Uruowaoyls77[address] [place] [id number]. Farhat Leal WBC 6.8 103/ul Normal 4.0-11.0 [facility] Comment on above: Performed By: #### C BC ####[facility] Ohhfddsnsl9899 [place] [address]Dr. Farhat Leal PROF 14(COMP METB)on 023 Albumin [Mass/Vol] 2.8 g/dL Critically low 3.4-5.0 [facility] Comment on above: Performed By: #### C MP ####[facility] Tbdkbdcbnf0883 [place] [address]Dr. Farhat Leal Albumin/Globulin [Mass ratio] 0.9 {ratio} Normal [facility] Comment on above: Performed By: #### C MP ####[facility] Fogsmchpyv6992 [place] [address]Dr. Farhat Leal ALP [Catalytic activity/Vol] 66 U/L Normal 46-116 [facility] Comment on above: Performed By: #### C MP ####[facility] Tsslhnrsnb[address] [place], [place] [address]Dr. Farhat Leal ALT [Catalytic activity/Vol] 15 U/L Critically low 16-63 [facility] Comment on above: Performed By: #### C MP ####[facility] Smyfpmjwle[address] [place], [place] [address]Dr. Farhat Leal Anion gap [Moles/Vol] 11.1 mmol/L Normal [facility] Comment on above: Performed By: #### C MP ####[facility] Rvywwbywtv9[address] [place], [place] [address]Dr. Farhat Leal AST [Catalytic activity/Vol] 14 U/L Critically low 15-37 [facility] Comment on above: Performed By: #### C MP ####[facility] Ilyphhgttl[address] [place], [place] [address]Dr. Farhat Leal Bilirubin [Mass/Vol] 0.8 mg/dL Normal 0.2-1.0 [facility] Comment on above: Performed By: #### C MP ####[facility] Ikaafhaesr7[address] [place], [place] [address]Dr. Farhat Leal Calcium [Mass/Vol] 8.9 mg/dL Normal 8.5-10.1 [facility] Comment on above: Performed By: #### C MP ####[facility] Uiutcsfbbm1107 [place] [address]Dr. Farhat Leal Chloride [Moles/Vol] 101 mmol/L Normal 98-107 [facility] Comment on above: Performed By: #### C MP ####[facility] Xyngulomhf6532 [place] [id number]. Farhat Leal CO2 [Moles/Vol] 28.2 mmol/L Normal 21.0-32.0 [facility] Comment on above: Performed By: #### C MP ####[facility] Sizfbjgggo5277 [place] [address]Dr. Farhat Leal Creatinine [Mass/Vol] 1.23 mg/dL Normal 0.70-1.30 [facility] Comment on above: Performed By: #### C MP ####[facility] Zjmtonoywi2002 [place] [address]Dr. Farhat Leal EGFR-AF BAHAMIAN >60 Normal >=60 [facility] Comment on above: Performed By: #### C MP ####[facility] Gbjcreszgn7040 [place] [address]Dr. Farhat Leal EGFR-NON AF BAHAMIAN 57 mL/min/1.73m2 Critically low >=60 [facility] Comment on above: Performed By: #### C MP ####[facility] Exhccxrsxu95[address] [place] [address]Dr. Farhat Leal Globulin (S) [Mass/Vol] 3.2 g/dL Normal [facility] Comment on above: Performed By: #### C MP ####[facility] Pbjjurezdo7291 [place] [address]Dr. Farhat Leal Glucose [Mass/Vol] 333 mg/dL Critically high 74-106 [facility] Comment on above: Performed By: #### C MP ####[facility] Crvytbzxyi6957 [place] [address]Dr. Farhat Leal Potassium [Moles/Vol] 4.3 mmol/L Normal 3.5-5.1 [facility] Comment on above: Performed By: #### C MP ####[facility] Rldzcjgdbg8195 [place] [id number]. Farhat Leal Protein [Mass/Vol] 6.0 g/dL Critically low 6.4-8.2 Th e [facility] Comment on above: Performed By: #### C MP ####[facility] Arrbadfizf7350 [place] [address]Dr. Farhat Leal Sodium [Moles/Vol] 136 mmol/L Normal 136-145 [facility] Comment on above: Performed By: #### C MP ####[facility] Itobhktvjw9638 [place] [address]Dr. Farhat Leal Urea nitrogen [Mass/Vol] 58.0 mg/dL Critically high 7.0-18.0 [facility] Comment on above: Performed By: #### C MP ####[facility] Mzdpqhygru[address] [place], [place] [address]Dr. Farhat Leal Urea nitrogen/Creatinine [Mass ratio] 47.2 mg/mg Normal [facility] Comment on above: Performed By: #### C MP ####[facility] Kplxywcpgk[address] [place], [place] [address]Dr. Farhat Leal PROTIMEon 05-13-2022 INR Coag (PPP) [Relative time] 3.51 {INR} Normal [facility] Comment on above: Performed By: #### P T ####[facility] Uwnczzhldw6[address] [place], [place] [address]Dr. Farhat Leal INR GUIDELINES SEE BELOW Normal [facility] Comment on above: Result Comment: MALINA RED INR: 2.0 - 3.0 CONDITIONS NOT LISTED BELOW 2.5 - 3.5 FOR PROSTHETIC HEART VALVE REPLACEMENT 2.5 - 3.5 RECURRENT THROMBOSIS Performed By: #### P T ####[facility] Lojjevuzuq107[address] [place], [place] [address]Dr. Farhat Leal PT Coag (PPP) [Time] 34.7 s Critically high 9.0-11.6 [facility] Comment on above: Performed By: #### P T ####[facility] Hxhlcrqrjz35[address] [place], [place] [address]Dr. Farhat Leal FK506 (TACROLIMUS) WHOLE BLO ODon 05-11-2022 Tacrolimus (FK506), Blood 14.4 ng/mL Normal 2.0-20.0 [facility] Comment on above: Result Comment: Trou gh (immediately following transplant) 15.0 . Trough (steady state, 2 weeks or more after transplant): 3.0 - 8.0 . Performed by LC-MS/MS technology. Performed By: #### F K506T ####[facility] Ebtbeyagdc786[address] [place], [place] [address]Dr. Madelynlorri Elvis CBC AUTO DIFFon 05-08-2022 BASO # 0.0 103/ul Normal 0.0-0.1 [facility] Comment on above: Performed By: #### C BC ####[facility] Yrdnwzwcyb57[address] [place], [place] [address]Dr. Farhat Leal Basophils/100 WBC (Bld) 0.5 % Normal 0.2-2.0 [facility] Comment on above: Performed By: #### C BC ####[facility] Stiknwbetb9[address] [place], [place] [address]Dr. Farhat Leal EO # 0.2 103/ul Normal 0.0-0.7 [facility] Comment on above: Performed By: #### C BC ####[facility] Qpijwcdocy3986[address] [place], [place] [address]Dr. Farhat Leal Eosinophils/100 WBC (Bld) 2.9 % Normal 0.9-7.0 [facility] Comment on above: Performed By: #### C BC ####[facility] Ayvmnmujuf[address] [place], [place] [address]Dr. Farhat Leal Erythrocyte distribution width (RBC) [Ratio] 16.0 % Critically high 11.0-15.0 [facility] Comment on above: Performed By: #### C BC ####[facility] Z[address]zjeqfmb40[address] [place], [place] [address]Dr. Farhat Leal Hematocrit (Bld) [Volume fraction] 35.7 % Critically low 42.0-54.0 [facility] Comment on above: Performed By: #### C BC ####[facility] Qsijbmncxx2559 [place] [id number]. Farhat Leal Hemoglobin (Bld) [Mass/Vol] 11.9 g/dL Critically low 14.0-18.0 [facility] Comment on above: Performed By: #### C BC ####[facility] Pfqkrdmkbw9273 [place] [id number]. Farhat Leal IG # 0.03 10e3/ul Normal 0.00-0.03 [facility] Comment on above: Performed By: #### C BC ####[facility] Fcjjurawqp5465 [place] [id number]. Farhat Leal IG % 0.5 % Normal 0.0-0.5 [facility] Comment on above: Performed By: #### C BC ####[facility] Slbsybxlgm8879 [place] [address]Dr. Farhat Leal LYMPH # 2.4 103/ul Normal 1.2-3.8 [facility] Comment on above: Performed By: #### C BC ####[facility] Uwqegtwmaf6934 [place] [address]Dr. Farhat Lela Lymphocytes/100 WBC (Bld) 37.8 % Normal 20.5-60.0 [facility] Comment on above: Performed By: #### C BC ####[facility] [address] [place] [address]Dr. Farhat Leal MANUAL DIFF REQ NO Normal [facility] Comment on above: Performed By: #### C BC ####[facility] Rbbmncsnzf[address] [place] [id number]. Farhat Leal MCH (RBC) [Entitic mass] 30.4 pg Normal 25.9-34.0 [facility] Comment on above: Performed By: #### C BC ####[facility] Toenollvvy[address] [place] [id number]. Farhat Leal MCHC (RBC) [Mass/Vol] 33.3 g/dL Normal 29.9-35.2 [facility] Comment on above: Performed By: #### C BC ####[facility] Bxwjpmdwvu5[address] [place] [id number]. Farhat Leal MCV (RBC) [Entitic vol] 91.1 fL Normal 80.0-94.0 [facility] Comment on above: Performed By: #### C BC ####[facility] Gndggzxxpx3[address] [place] [id number]. Farhat Leal MONO # 0.7 103/ul Normal 0.3-0.8 [facility] Comment on above: Performed By: #### C BC ####[facility] Pyqsaozwoc23[address] [place] [id number]. Farhat Leal Monocytes/100 WBC (Bld) 11.1 % Normal 1.7-12.0 [facility] Comment on above: Performed By: #### C BC ####[facility] Exdjefaico[address] [place], [place] [address]Dr. Farhat Leal NEUT # 2.9 103/ul Normal 1.4-6.5 [facility] Comment on above: Performed By: #### C BC ####[facility] Lwzxkyubbz69[address] [place], [place] [address]Dr. Farhat Leal Neutrophils/100 WBC (Bld) 47.2 % Normal 43.0-75.0 [facility] Comment on above: Performed By: #### C BC ####[facility] Wtvkkldpwq11[address] [place], [place] [address]Dr. Farhat Leal Platelet mean volume (Bld) [Entitic vol] 11.0 fL Normal 9.5-13.5 [facility] Comment on above: Performed By: #### C BC ####[facility] Tkdwxujvbl[address] [place], [place] [id number]. Farhat Elvis PLT 191 103/ul Normal 150-450 [facility] Comment on above: Performed By: #### C BC ####[facility] Oqayzvyabb[address] [place], [place] [id number]. aFrhat Elvis RBC 3.92 106/ul Critically low 4.70-6.10 [facility] Comment on above: Performed By: #### C BC ####[facility] Ylnxuqblps4764[address] [place], [place] [address]Dr. Farhat Leal WBC 6.2 103/ul Normal 4.0-11.0 [facility] Comment on above: Performed By: #### C BC ####[facility] Gugljsdhci[address] [place] [address]Dr. Farhat Leal MAGNESIUMon 05-08-2022 Magnesium [Mass/Vol] 1.9 mg/dL Normal 1.8-2.4 [facility] Comment on above: Performed By: #### P HOS, MG ####[facility] Mq[address]ig[address] [place] [address]Dr. Farhat Leal PHOSPHORUSon 05-08-2022 Phosphate [Mass/Vol] 4.5 mg/dL Normal 2.6-4.7 [facility] Comment on above: Performed By: #### P HOS, MG ####[facility] Djvpzarafy36[address] [place] [address]Dr. Madelynlorri Leal PROF 14(COMP METB)on 023 Albumin [Mass/Vol] 2.9 g/dL Critically low 3.4-5.0 [facility] Comment on above: Performed By: #### C MP ####[facility] Gpxxylrjwx12[address] [place], [place] [address]Dr. Farhat Leal Albumin/Globulin [Mass ratio] 0.9 {ratio} Normal [facility] Comment on above: Performed By: #### C MP ####[facility] Twtzyiafhe[address] [place], [place] [address]Dr. Madelynlorri Leal ALP [Catalytic activity/Vol] 70 U/L Normal 46-116 [facility] Comment on above: Performed By: #### C MP ####[facility] Vhajlpmsge[address] [place], [place] [address]Dr. Farhat Leal ALT [Catalytic activity/Vol] 13 U/L Critically low 16-63 [facility] Comment on above: Performed By: #### C MP ####[facility] Zvvfqwqjfo3[address] [place] [address]Dr. Farhat Leal Anion gap [Moles/Vol] 14.6 mmol/L Normal [facility] Comment on above: Performed By: #### C MP ####[facility] Pwytlfvhvj55[address] [place] [address]Dr. Farhat Leal AST [Catalytic activity/Vol] 17 U/L Normal 15-37 [facility] Comment on above: Performed By: #### C MP ####[facility] Lbiaevbejn[address] [place] [id number]. Farhat Leal Bilirubin [Mass/Vol] 0.8 mg/dL Normal 0.2-1.0 [facility] Comment on above: Performed By: #### C MP ####[facility] Nsoypzqvxw14[address] [place] [address]Dr. Farhat Leal Calcium [Mass/Vol] 8.9 mg/dL Normal 8.5-10.1 [facility] Comment on above: Performed By: #### C MP ####[facility] Mxjlpvekwx[address] [place], [place] [address]Dr. Farhat Leal Chloride [Moles/Vol] 102 mmol/L Normal 98-107 [facility] Comment on above: Performed By: #### C MP ####[facility] Pfklqwvies[address] [place], [place] [address]Dr. Farhat Leal CO2 [Moles/Vol] 22.9 mmol/L Normal 21.0-32.0 [facility] Comment on above: Performed By: #### C MP ####[facility] Vdazxbehtf08[address] [place], [place] [address]Dr. Farhat Leal Creatinine [Mass/Vol] 1.20 mg/dL Normal 0.70-1.30 [facility] Comment on above: Performed By: #### C MP ####[facility] Qkcekydhfh16[address] [place], [place] [address]Dr. Farhat Elvis EGFR-AF BAHAMIAN >60 Normal >=60 [facility] Comment on above: Performed By: #### C MP ####[facility] Nhtgxtsyes033[address] [place], [place] [address]Dr. Madelynlorri Elvis EGFR-NON AF BAHAMIAN 59 mL/min/1.73m2 Critically low >=60 [facility] Comment on above: Performed By: #### C MP ####[facility] Bildrxtjfv4[address] [place] [id number]. Farhat Leal Globulin (S) [Mass/Vol] 3.1 g/dL Normal [facility] Comment on above: Performed By: #### C MP ####[facility] Grxvccgqlu0084 [place] [id number]. Farhat Leal Glucose [Mass/Vol] 447 mg/dL Critically high 74-106 T [facility] Comment on above: Performed By: #### C MP ####[facility] Iotiajloyb77[address] [place] [id number]. Farhat Leal Potassium [Moles/Vol] 4.5 mmol/L Normal 3.5-5.1 [facility] Comment on above: Performed By: #### C MP ####[facility] Jcugnmyztv234[address] [place], [place] [address]Dr. Farhat Leal Protein [Mass/Vol] 6.0 g/dL Critically low 6.4-8.2 [facility] Comment on above: Performed By: #### C MP ####[facility] Kfkycxpmsq5[address] [place] [address]Dr. Farhat Leal Sodium [Moles/Vol] 135 mmol/L Critically low 136-145 [facility] Comment on above: Performed By: #### C MP ####[facility] Vrfvdpvlzj6165 [place] [address]Dr. Farhat Leal Urea nitrogen [Mass/Vol] 52.0 mg/dL Critically high 7.0-18.0 [facility] Comment on above: Performed By: #### C MP ####[facility] Ke[address]uwmgue[address] [place] [address]Dr. Farhat Leal Urea nitrogen/Creatinine [Mass ratio] 43.3 mg/mg Normal [facility] Comment on above: Performed By: #### C MP ####[facility] Rjcpbkjknt[address] [place], [place] [address]Dr. Farhat Leal PROTIMEon 05-06-2022 INR Coag (PPP) [Relative time] 2.25 {INR} Normal [facility] Comment on above: Performed By: #### P T ####[facility] Vshbetwijw[address] [place], [place] [address]DrSkylar Leal INR GUIDELINES SEE BELOW Normal [facility] Comment on above: Result Comment: MALINA RED INR: 2.0 - 3.0 CONDITIONS NOT LISTED BELOW 2.5 - 3.5 FOR PROSTHETIC HEART VALVE REPLACEMENT 2.5 - 3.5 RECURRENT THROMBOSIS Performed By: #### P T ####[facility] Dysqmkvlos[address] [place], [place] [address]DrSkylar Leal PT Coag (PPP) [Time] 22.8 s Critically high 9.0-11.6 [facility] Comment on above: Performed By: #### P T ####[facility] Ntfebqmovk[address] [place], [place] [address]DrSkylar Leal FK506 (TACROLIMUS) WHOLE BLO ODon 05-04-2022 Tacrolimus (FK506), Blood 10.4 ng/mL Normal 2.0-20.0 [facility] Comment on above: Result Comment: Trou gh (immediately following transplant) 15.0 . Trough (steady state, 2 weeks or more after transplant): 3.0 - 8.0 . Performed by LC-MS/MS technology. Performed By: #### F K506T ####[facility] Fllumavcgb06[address] [place], [place] [address]Dr. Farhat Leal CBC AUTO DIFFon 05-01-2022 BASO # 0.1 103/ul Normal 0.0-0.1 [facility] Comment on above: Performed By: #### C BC ####[facility] Yyuqaqgkwg39[address] [place], [place] [address]DrSkylar Leal Basophils/100 WBC (Bld) 0.7 % Normal 0.2-2.0 [facility] Comment on above: Performed By: #### C BC ####[facility] F[address]ufdbtlo[address] [place], [place] [address]DrSkylar Leal EO # 0.2 103/ul Normal 0.0-0.7 [facility] Comment on above: Performed By: #### C BC ####[facility] Fbdmqlpwol[address] [place], [place] [address]Dr. Farhat Leal Eosinophils/100 WBC (Bld) 3.2 % Normal 0.9-7.0 [facility] Comment on above: Performed By: #### C BC ####[facility] Gclueb[address]fk[address] [place] [address]Dr. Farhat Leal Erythrocyte distribution width (RBC) [Ratio] 16.4 % Critically high 11.0-15.0 [facility] Comment on above: Performed By: #### C BC ####[facility] Lyezcvruoq399[address] [place], [place] [address]Dr. Farhat Leal Hematocrit (Bld) [Volume fraction] 35.1 % Critically low 42.0-54.0 [facility] Comment on above: Performed By: #### C BC ####[facility] Pguytidsjy[address] [place], [place] [address]Dr. Farhat Leal Hemoglobin (Bld) [Mass/Vol] 11.6 g/dL Critically low 14.0-18.0 [facility] Comment on above: Performed By: #### C BC ####[facility] Sumlvwklof9[address] [place], [place] [address]Dr. Farhat Leal IG # 0.03 10e3/ul Normal 0.00-0.03 [facility] Comment on above: Performed By: #### C BC ####[facility] Tdyqwownqb[address] [place], [place] [address]Dr. Farhat Leal IG % 0.4 % Normal 0.0-0.5 [facility] Comment on above: Performed By: #### C BC ####[facility] Zqzyyphlmy[address] [place], [place] [address]Dr. Farhat Leal LYMPH # 2.4 103/ul Normal 1.2-3.8 [facility] Comment on above: Performed By: #### C BC ####[facility] Vmcohezuyh[address] [place], [place] [address]Dr. Farhat Leal Lymphocytes/100 WBC (Bld) 35.1 % Normal 20.5-60.0 [facility] Comment on above: Performed By: #### C BC ####[facility] [address]mjwvd[address] [place] [address]Dr. Farhat Elvis MANUAL DIFF REQ NO Normal [facility] Comment on above: Performed By: #### C BC ####[facility] Rtpjwfiznb5139 [place] [address]Dr. Farhat Lela MCH (RBC) [Entitic mass] 29.4 pg Normal 25.9-34.0 [facility] Comment on above: Performed By: #### C BC ####[facility] Wtaedbsxeg[address] [place] [address]Dr. Farhat Elvis MCHC (RBC) [Mass/Vol] 33.0 g/dL Normal 29.9-35.2 [facility] Comment on above: Performed By: #### C BC ####[facility] R[address]rdsjho2[address] [place], [place] [address]Dr. Madelynlorri Leal MCV (RBC) [Entitic vol] 88.9 fL Normal 80.0-94.0 [facility] Comment on above: Performed By: #### C BC ####[facility] Svwrepevao[address] [place], [place] [address]Dr. Farhat Elvis MONO # 0.7 103/ul Normal 0.3-0.8 [facility] Comment on above: Performed By: #### C BC ####[facility] Wcedxgqxvg95[address] [place], [place] [address]Dr. Madelynlorri Leal Monocytes/100 WBC (Bld) 9.6 % Normal 1.7-12.0 [facility] Comment on above: Performed By: #### C BC ####[facility] Hvbpuvtzha[address] [place] [address]Dr. Farhat Leal NEUT # 3.5 103/ul Normal 1.4-6.5 [facility] Comment on above: Performed By: #### C BC ####[facility] Sigznkxnfy70[address] [place], [place] [address]Dr. Farhat Leal Neutrophils/100 WBC (Bld) 51.0 % Normal 43.0-75.0 [facility] Comment on above: Performed By: #### C BC ####[facility] B[address]qnkgtsus[address] [place] [address]Dr. Madelynlorri Elvis Platelet mean volume (Bld) [Entitic vol] 10.3 fL Normal 9.5-13.5 [facility] Comment on above: Performed By: #### C BC ####[facility] M[address]ajpzdsdn65[address] [place] [address]Dr. Madelynlorri Elvis PLT 184 103/ul Normal 150-450 [facility] Comment on above: Performed By: #### C BC ####[facility] Oswtlqrqnx040[address] [place] [address]Dr. Madelynlorri Elvis RBC 3.95 106/ul Critically low 4.70-6.10 [facility] Comment on above: Performed By: #### C BC ####[facility] T[address]acprib[address] [place] [address]Dr. Farhat Leal WBC 7.0 103/ul Normal 4.0-11.0 [facility] Comment on above: Performed By: #### C BC ####[facility] [address]yfxeoej[address] [place] [address]Dr. Farhat Leal PROF 14(COMP METB)on 023 Albumin [Mass/Vol] 2.6 g/dL Critically low 3.4-5.0 [facility] Comment on above: Performed By: #### C MP ####[facility] Kiooiqkeda[address] [place] [address]Dr. Farhat Leal Albumin/Globulin [Mass ratio] 0.9 {ratio} Normal [facility] Comment on above: Performed By: #### C MP ####[facility] Sdbeshbgay40[address] [place] [address]Dr. Farhat Leal ALP [Catalytic activity/Vol] 53 U/L Normal 46-116 [facility] Comment on above: Performed By: #### C MP ####[facility] Bahhtoeoth[address] [place] [address]Dr. Farhat Leal ALT [Catalytic activity/Vol] 17 U/L Normal 16-63 [facility] Comment on above: Performed By: #### C MP ####[facility] Dejsnqwqxm[address] [place], [place] [address]Dr. Farhat Leal Anion gap [Moles/Vol] 10.0 mmol/L Normal [facility] Comment on above: Performed By: #### C MP ####[facility] Urepszzgaj9[address] [place], [place] [address]Dr. Farhat Leal AST [Catalytic activity/Vol] 19 U/L Normal 15-37 [facility] Comment on above: Performed By: #### C MP ####[facility] Kkderbxuwu[address] [place], [place] [address]Dr. Farhat Elvis Bilirubin [Mass/Vol] 0.5 mg/dL Normal 0.2-1.0 [facility] Comment on above: Performed By: #### C MP ####[facility] Rgwiavebdw4[address] [place], [place] [address]Dr. Farhat Leal Calcium [Mass/Vol] 8.4 mg/dL Critically low 8.5-10.1 [facility] Comment on above: Performed By: #### C MP ####[facility] Fiicslvnhn2774[address] [place], [place] [address]Dr. Farhat Leal Chloride [Moles/Vol] 108 mmol/L Critically high 98-107 [facility] Comment on above: Performed By: #### C MP ####[facility] Mkcrpqtcct[address] [place], [place] [address]Dr. Farhat Leal CO2 [Moles/Vol] 26.9 mmol/L Normal 21.0-32.0 [facility] Comment on above: Performed By: #### C MP ####[facility] Nubbleqyrs001[address] [place], [place] [address]Dr. Farhat Leal Creatinine [Mass/Vol] 1.20 mg/dL Normal 0.70-1.30 [facility] Comment on above: Performed By: #### C MP ####[facility] Jhiaqivrbv[address] [place], [place] [address]Dr. Farhat Leal EGFR-AF BAHAMIAN >60 Normal >=60 [facility] Comment on above: Performed By: #### C MP ####[facility] Ptrvjufbth9[address] [place], [place] [address]Dr. Farhat Leal EGFR-NON AF BAHAMIAN 59 mL/min/1.73m2 Critically low >=60 [facility] Comment on above: Performed By: #### C MP ####[facility] Ttsknolqem[address] [place] [address]Dr. Madelynlorri Elvis Globulin (S) [Mass/Vol] 3.0 g/dL Normal [facility] Comment on above: Performed By: #### C MP ####[facility] Htbryulszr5638 [place] [address]Dr. Farhat Leal Glucose [Mass/Vol] 213 mg/dL Critically high 74-106 T [facility] Comment on above: Performed By: #### C MP ####[facility] Zetmqhquxl30[address] [place], [place] [address]Dr. Farhat Leal Potassium [Moles/Vol] 3.9 mmol/L Normal 3.5-5.1 [facility] Comment on above: Performed By: #### C MP ####[facility] Cqjsvslfyb415[address] [place], [place] [address]Dr. Farhat Leal Protein [Mass/Vol] 5.6 g/dL Critically low 6.4-8.2 [facility] Comment on above: Performed By: #### C MP ####[facility] Hoehqmlzjs8[address] [place], [place] [address]Dr. Farhat Leal Sodium [Moles/Vol] 141 mmol/L Normal 136-145 [facility] Comment on above: Performed By: #### C MP ####[facility] Innxgvuyup98[address] [place] [address]Dr. Farhat Leal Urea nitrogen [Mass/Vol] 61.0 mg/dL Critically high 7.0-18.0 [facility] Comment on above: Performed By: #### C MP ####[facility] Witlppgahq3034[address] [place], [place] [address]Dr. Farhat Leal Urea nitrogen/Creatinine [Mass ratio] 50.8 mg/mg Normal [facility] Comment on above: Performed By: #### C MP ####[facility] Qzmwkotyrs1037[address] [place], [place] [address]Dr. Farhat Leal FK506 (TACROLIMUS) WHOLE BLO ODon 04-27-2022 Tacrolimus (FK506), Blood 16.5 ng/mL Normal 2.0-20.0 [facility] Comment on above: Result Comment: Trou gh (immediately following transplant) 15.0 . Trough (steady state, 2 weeks or more after transplant): 3.0 - 8.0 . Performed by LC-MS/MS technology. Performed By: #### F K506T ####[facility] Mujpgsrsxh179[address] [place], [place] [address]Dr. Farhat Leal CBC AUTO DIFFon 04-24-2022 BASO # 0.0 103/ul Normal 0.0-0.1 [facility] Comment on above: Performed By: #### C BC ####[facility] Wxlzzbbdbt864[address] [place], [place] [address]DrSkylar Leal Basophils/100 WBC (Bld) 0.5 % Normal 0.2-2.0 [facility] Comment on above: Performed By: #### C BC ####[facility] Tpfdrlkxsd[address] [place], [place] [address]Dr. Farhat Leal EO # 0.2 103/ul Normal 0.0-0.7 [facility] Comment on above: Performed By: #### C BC ####[facility] Besdksxkei8764[address] [place], [place] [address]Dr. Farhat Leal Eosinophils/100 WBC (Bld) 3.1 % Normal 0.9-7.0 [facility] Comment on above: Performed By: #### C BC ####[facility] Cgqcnkzjld[address] [place], [place] [address]Dr. Farhat Leal Erythrocyte distribution width (RBC) [Ratio] 16.3 % Critically high 11.0-15.0 [facility] Comment on above: Performed By: #### C BC ####[facility] Qdtvsqurtq204[address] [place], [place] [address]DrSkylar Leal Hematocrit (Bld) [Volume fraction] 34.0 % Critically low 42.0-54.0 [facility] Comment on above: Performed By: #### C BC ####[facility] Cnfkhcdbdp0639 [place] [address]Dr. Farhat Leal Hemoglobin (Bld) [Mass/Vol] 11.6 g/dL Critically low 14.0-18.0 [facility] Comment on above: Performed By: #### C BC ####[facility] Lejlebywcq[address] [place] [id number]. Farhat Leal IG # 0.02 10e3/ul Normal 0.00-0.03 [facility] Comment on above: Performed By: #### C BC ####[facility] Tunzrkutah16[address] [place] [address]Dr. Farhat Leal IG % 0.4 % Normal 0.0-0.5 [facility] Comment on above: Performed By: #### C BC ####[facility] Dkddvqjuzz0744 [place] [address]Dr. Farhat Leal LYMPH # 2.2 103/ul Normal 1.2-3.8 [facility] Comment on above: Performed By: #### C BC ####[facility] Dlvyfualjm8934 [place] [address]Dr. Farhat Leal Lymphocytes/100 WBC (Bld) 38.8 % Normal 20.5-60.0 [facility] Comment on above: Performed By: #### C BC ####[facility] Txsjieulii[address] [place] [address]Dr. Farhat Leal MANUAL DIFF REQ NO Normal [facility] Comment on above: Performed By: #### C BC ####[facility] Befpngowic[address] [place] [id number]. Farhat Leal MCH (RBC) [Entitic mass] 30.1 pg Normal 25.9-34.0 [facility] Comment on above: Performed By: #### C BC ####[facility] Lkuzfijrtg5220 [place] [id number]. Farhat Leal MCHC (RBC) [Mass/Vol] 34.1 g/dL Normal 29.9-35.2 [facility] Comment on above: Performed By: #### C BC ####[facility] Isc[address]rmpds[address] [place], [place] [id number]. Farhat Leal MCV (RBC) [Entitic vol] 88.1 fL Normal 80.0-94.0 [facility] Comment on above: Performed By: #### C BC ####[facility] Ipwqxfsrzq8745 [place] [id number]. Farhat Leal MONO # 0.6 103/ul Normal 0.3-0.8 [facility] Comment on above: Performed By: #### C BC ####[facility] Nurwwyvhey26[address] [place] [address]Dr. Farhat Leal Monocytes/100 WBC (Bld) 10.8 % Normal 1.7-12.0 [facility] Comment on above: Performed By: #### C BC ####[facility] Xnrpctxerx4203 [place] [address]Dr. Farhat Leal NEUT # 2.6 103/ul Normal 1.4-6.5 [facility] Comment on above: Performed By: #### C BC ####[facility] Qvidoooidh1364 [place] [address]Dr. Farhat Leal Neutrophils/100 WBC (Bld) 46.4 % Normal 43.0-75.0 [facility] Comment on above: Performed By: #### C BC ####[facility] Kqennatxml3298 [place] [address]Dr. Farhat Leal Platelet mean volume (Bld) [Entitic vol] 10.9 fL Normal 9.5-13.5 [facility] Comment on above: Performed By: #### C BC ####[facility] Jbayjrqryw5701 [place] [address]Dr. Farhat Elvis PLT 159 103/ul Normal 150-450 [facility] Comment on above: Performed By: #### C BC ####[facility] Najoyzgdfk5[address] [place] [id number]. Farhat Elvis RBC 3.86 106/ul Critically low 4.70-6.10 [facility] Comment on above: Performed By: #### C BC ####[facility] Kprveofbyd[address] [place], [place] [id number]. Farhat Elvis WBC 5.6 103/ul Normal 4.0-11.0 [facility] Comment on above: Performed By: #### C BC ####[facility] Hjymhpisov[address] [place] [address] Farhat Leal PROTIMEon 04-24-2022 INR Coag (PPP) [Relative time] 3.23 {INR} Normal [facility] Comment on above: Performed By: #### P T ####[facility] O[address]htwwqqh[address] [place], [place] [address]DrSkylar Leal INR GUIDELINES SEE BELOW Normal [facility] Comment on above: Result Comment: MALINA RED INR: 2.0 - 3.0 CONDITIONS NOT LISTED BELOW 2.5 - 3.5 FOR PROSTHETIC HEART VALVE REPLACEMENT 2.5 - 3.5 RECURRENT THROMBOSIS Performed By: #### P T ####[facility] Cbwparlqod[address] [place], [place] [address]DrSkylar Leal PT Coag (PPP) [Time] 32.0 s Critically high 9.0-11.6 [facility] Comment on above: Performed By: #### P T ####[facility] Q[address]jmvnxoq02[address] [place], [place] [address]DrSkylar Leal FK506 (TACROLIMUS) WHOLE BLO ODon 04-20-2022 Tacrolimus (FK506), Blood 13.9 ng/mL Normal 2.0-20.0 [facility] Comment on above: Result Comment: Trou gh (immediately following transplant) 15.0 . Trough (steady state, 2 weeks or more after transplant): 3.0 - 8.0 . Performed by LC-MS/MS technology. Performed By: #### F K506T ####[facility] Mbowgfheuf[address] [place] [address]DrSkylar Madelynlorri Leal CBC AUTO DIFFon 04-17-2022 BASO # 0.0 103/ul Normal 0.0-0.1 [facility] Comment on above: Performed By: #### C BC ####[facility] [address]bwnqwb[address] [place] [address]DrSkylar Leal Basophils/100 WBC (Bld) 0.4 % Normal 0.2-2.0 [facility] Comment on above: Performed By: #### C BC ####[facility] Yvzzmuhljs[address] [place], [place] [address]Dr. Farhat Leal EO # 0.2 103/ul Normal 0.0-0.7 [facility] Comment on above: Performed By: #### C BC ####[facility] G[address] [place], [place] [address]DrSkylar Leal Eosinophils/100 WBC (Bld) 2.8 % Normal 0.9-7.0 [facility] Comment on above: Performed By: #### C BC ####[facility] Blujewdffr8[address] [place], [place] [address]Dr. Farhat Leal Erythrocyte distribution width (RBC) [Ratio] 16.1 % Critically high 11.0-15.0 [facility] Comment on above: Performed By: #### C BC ####[facility] Xgxacpodyx[address] [place], [place] [address]Dr. Farhat Leal Hematocrit (Bld) [Volume fraction] 35.7 % Critically low 42.0-54.0 [facility] Comment on above: Performed By: #### C BC ####[facility] Uhtvsrrpyj[address] [place], [place] [address]DrSkylar Madelynlorri Leal Hemoglobin (Bld) [Mass/Vol] 12.2 g/dL Critically low 14.0-18.0 [facility] Comment on above: Performed By: #### C BC ####[facility] T[address]gtbvbzq[address] [place], [place] [address]Dr. Farhat Leal IG # 0.03 10e3/ul Normal 0.00-0.03 [facility] Comment on above: Performed By: #### C BC ####[facility] Q[address]jcsgvskc6[address] [place], [place] [address]Dr. Farhat Leal IG % 0.4 % Normal 0.0-0.5 [facility] Comment on above: Performed By: #### C BC ####[facility] Aayicyxiwc[address]326[address] [place], [place] [address]DrSkylar Leal LYMPH # 2.4 103/ul Normal 1.2-3.8 [facility] Comment on above: Performed By: #### C BC ####[facility] A[address]xz25[address] [place] [address]Dr. Farhat Leal Lymphocytes/100 WBC (Bld) 36.1 % Normal 20.5-60.0 [facility] Comment on above: Performed By: #### C BC ####[facility] Iiewqmyiil0738 [place] [address]DrSkylar Leal MANUAL DIFF REQ NO Normal [facility] Comment on above: Performed By: #### C BC ####[facility] [address]yrptfrwbn1961 [place] [address]DrSkylar Leal MCH (RBC) [Entitic mass] 30.3 pg Normal 25.9-34.0 [facility] Comment on above: Performed By: #### C BC ####[facility] Jmnonkpyqg680[address] [place], [place] [address]Dr. Farhat Leal MCHC (RBC) [Mass/Vol] 34.2 g/dL Normal 29.9-35.2 [facility] Comment on above: Performed By: #### C BC ####[facility] Eylxylujvx180[address] [place], [place] [address]DrSkylar Leal MCV (RBC) [Entitic vol] 88.6 fL Normal 80.0-94.0 [facility] Comment on above: Performed By: #### C BC ####[facility] Meygseptgv[address] [place], [place] [address]Dr. Farhat Leal MONO # 0.7 103/ul Normal 0.3-0.8 [facility] Comment on above: Performed By: #### C BC ####[facility] Zyxqmsnrds8878[address] [place], [place] [address]Dr. Farhat Leal Monocytes/100 WBC (Bld) 10.1 % Normal 1.7-12.0 [facility] Comment on above: Performed By: #### C BC ####[facility] Qgqhzanrjh25[address] [place], [place] [address]DrSkylar Leal NEUT # 3.4 103/ul Normal 1.4-6.5 [facility] Comment on above: Performed By: #### C BC ####[facility] Amedoegaeq0206 [place] [address]Dr. Farhat Leal Neutrophils/100 WBC (Bld) 50.2 % Normal 43.0-75.0 [facility] Comment on above: Performed By: #### C BC ####[facility] Vneyftjprb7306 [place] [address]Dr. Farhat Leal Platelet mean volume (Bld) [Entitic vol] 11.8 fL Normal 9.5-13.5 [facility] Comment on above: Performed By: #### C BC ####[facility] Fkpojhphse9237[address] [place], [place] [address]Dr. Farhat Leal PLT 193 103/ul Normal 150-450 [facility] Comment on above: Performed By: #### C BC ####[facility] Qdgxwncvsi1255 [place] [address]Dr. Farhat Leal RBC 4.03 106/ul Critically low 4.70-6.10 [facility] Comment on above: Performed By: #### C BC ####[facility] Pvxussyksj17[address] [place], [place] [address]Dr. Farhat Leal WBC 6.8 103/ul Normal 4.0-11.0 [facility] Comment on above: Performed By: #### C BC ####[facility] Bviengwyyc3171 [place] [address]Dr. Farhat Leal PROF 14(COMP METB)on 023 Albumin [Mass/Vol] 2.9 g/dL Critically low 3.4-5.0 [facility] Comment on above: Performed By: #### C MP ####[facility] Royeiyjfrt9[address] [place], [place] [address]Dr. Farhat Leal Albumin/Globulin [Mass ratio] 0.9 {ratio} Normal [facility] Comment on above: Performed By: #### C MP ####[facility] Iyqfeflavm2994 [place] [address]Dr. Farhat Leal ALP [Catalytic activity/Vol] 67 U/L Normal 46-116 [facility] Comment on above: Performed By: #### C MP ####[facility] Fckvnmtqna4684 [place] [address]Dr. Farhat Leal ALT [Catalytic activity/Vol] 15 U/L Critically low 16-63 [facility] Comment on above: Performed By: #### C MP ####[facility] Jtgqywwhqd1732 [place] [id number]. Farhat Leal Anion gap [Moles/Vol] 10.8 mmol/L Normal Th e [facility] Comment on above: Performed By: #### C MP ####[facility] Urymegbwss1418 [place] [address]Dr. Farhat Leal AST [Catalytic activity/Vol] 23 U/L Normal 15-37 [facility] Comment on above: Performed By: #### C MP ####[facility] Tyrorzaarc[address] [place], [place] [address]Dr. Farhat Elvis Bilirubin [Mass/Vol] 0.6 mg/dL Normal 0.2-1.0 [facility] Comment on above: Performed By: #### C MP ####[facility] Fcmqmupctx1722 [place] [address]Dr. Farhat Leal Calcium [Mass/Vol] 8.7 mg/dL Normal 8.5-10.1 [facility] Comment on above: Performed By: #### C MP ####[facility] Xrorztnoih6109 [place] [address]Dr. Farhat Elvis Chloride [Moles/Vol] 105 mmol/L Normal 98-107 [facility] Comment on above: Performed By: #### C MP ####[facility] Mhqhbowmed5972 [place] [address]Dr. Farhat Leal CO2 [Moles/Vol] 29.5 mmol/L Normal 21.0-32.0 [facility] Comment on above: Performed By: #### C MP ####[facility] Qshljrxxmy9219 [place] [address]Dr. Farhat Elvis Creatinine [Mass/Vol] 1.37 mg/dL Critically high 0.70-1.30 [facility] Comment on above: Performed By: #### C MP ####[facility] Prkrpwpcfk0624 [place] [id number]. Farhat Elvis EGFR-AF BAHAMIAN >60 Normal >=60 [facility] Comment on above: Performed By: #### C MP ####[facility] Qkzseegiae3474 [place], [place] [address]Wf. Farhat Elvis EGFR-NON AF BAHAMIAN 50 mL/min/1.73m2 Critically low >=60 [facility] Comment on above: Performed By: #### C MP ####[facility] Ojtiqjorwx2256 [place] [id number]. Farhat Elvis Globulin (S) [Mass/Vol] 3.1 g/dL Normal [facility] Comment on above: Performed By: #### C MP ####[facility] Styxygujet2870 [place] [address]Dr. Madelynlorri Elvis Glucose [Mass/Vol] 203 mg/dL Critically high 74-106 [facility] Comment on above: Performed By: #### C MP ####[facility] Ndpbnxnxgh0702 [place] [id number]. Madelynlorri Leal Potassium [Moles/Vol] 4.3 mmol/L Normal 3.5-5.1 [facility] Comment on above: Performed By: #### C MP ####[facility] Zcnxtvcile0326 [place] [id number]. Madelynlorri Elvis Protein [Mass/Vol] 6.0 g/dL Critically low 6.4-8.2 [facility] Comment on above: Performed By: #### C MP ####[facility] Ixjrzvdjoz1275 [place] [id number]. Farhat Elvis Sodium [Moles/Vol] 141 mmol/L Normal 136-145 [facility] Comment on above: Performed By: #### C MP ####[facility] Dyghqadnwm3335 [place] [id number]. Farhat Leal Urea nitrogen [Mass/Vol] 65.0 mg/dL Critically high 7.0-18.0 [facility] Comment on above: Performed By: #### C MP ####[facility] Ttnxvnxyqa9485 [place] [id number]. Madelynlorri Leal Urea nitrogen/Creatinine [Mass ratio] 47.4 mg/mg Normal [facility] Comment on above: Performed By: #### C MP ####[facility] Ijdvmhzodx6063 [place] [id number] Leal PROTIMEon 04-15-2022 INR Coag (PPP) [Relative time] 3.88 {INR} Normal [facility] Comment on above: Performed By: #### P T ####[facility] Mhhewpaeqb6855 [place] [address]Dr. Farhat Leal INR GUIDELINES SEE BELOW Normal [facility] Comment on above: Result Comment: MALINA RED INR: 2.0 - 3.0 CONDITIONS NOT LISTED BELOW 2.5 - 3.5 FOR PROSTHETIC HEART VALVE REPLACEMENT 2.5 - 3.5 RECURRENT THROMBOSIS Performed By: #### P T ####[facility] Zsozxnwboh8891 [place] [id number]. Madelynlorri Leal PT Coag (PPP) [Time] 38.1 s Critically high 9.0-11.6 [facility] Comment on above: Performed By: #### P T ####[facility] Zhmrlzohxm9058 [place] [id number]. Farhat Leal Glucose Glucometer (BldC) [M ass/Vol]Ordered By: Sadia Aguilar on 04-14-2022 Glucose [Mass/Vol] 162 mg/dL [facility] Comment on above: Random Glucose Refer ence Range is dependent on time and content of last meal. Glucose of more than 200 mg/dL in a nonstressed, ambulatory subject supports the diagnosis of Diabetes Mellitus. Glucose Poct Glucometerson 0 04-14-2022 Commemt1 Glu2: Cleaned Meter Normal [facility] Comment on above: Result Comment: PERF ORMED BY: [facility] [address] [address] PATHOLOGIST [employer]ARM[employer] JOSE F ELLIOTT M.D. Performed By: #### G LULS #### Point of Care testing , Glucose [Mass/Vol] 162 mg/dL Normal [facility] Comment on above: Result Comment: [facility] Glucose Reference Range is dependent on time and content of last meal. Glucose of more than 200 mg/dL in a nonstressed, ambulatory subject supports the diagnosis of Diabetes Mellitus. Performed By: #### G LULS #### Point of Care testing , No Panel InformationOrdered By: Sadia Aguilar on 04-14-2022 Bedside Glucose Comment Glu2: cleaned meter [facility] MAGNESIUMon 04-13-2022 Magnesium [Mass/Vol] 1.7 mg/dL Critically low 1.8-2.4 [facility] Comment on above: Performed By: #### M HENRI Manzo ####[facility] Bygirkrljf3689 [place] [address]DrSkylar Leal PHOSPHORUSon 04-13-2022 Phosphate [Mass/Vol] 4.8 mg/dL Critically high 2.6-4.7 [facility] Comment on above: Performed By: #### M HENRI Manzo ####[facility] Kpsztjxxkb9798 [place] [address]DrSkylar Leal PROTIMEon 04-13-2022 INR Coag (PPP) [Relative time] 3.16 {INR} Normal [facility] Comment on above: Performed By: #### P T ####[facility] Ytfyychemw[address] [place], [place] [address]DrSkylar Leal INR GUIDELINES SEE BELOW Normal [facility] Comment on above: Result Comment: MALINA RED INR: 2.0 - 3.0 CONDITIONS NOT LISTED BELOW 2.5 - 3.5 FOR PROSTHETIC HEART VALVE REPLACEMENT 2.5 - 3.5 RECURRENT THROMBOSIS Performed By: #### P T ####[facility] Cnavtlocvh[address] [place], [place] [address]DrSkylar Leal PT Coag (PPP) [Time] 31.4 s Critically high 9.0-11.6 [facility] Comment on above: Performed By: #### P T ####[facility] Usyanonftm[address] [place], [place] [address]DrSkylar Leal MAGNESIUMon 03-11-2022 Magnesium [Mass/Vol] 1.6 mg/dL Critically low 1.8-2.4 [facility] Comment on above: Performed By: #### M Anais PHOS ####[facility] Tzbuugamup[address] [place], [place] [address]Cm. Frahat Leal PHOSPHORUSon 03-11-2022 Phosphate [Mass/Vol] 5.3 mg/dL Critically high 2.6-4.7 [facility] Comment on above: Performed By: #### M Anais PHOS ####[facility] Sadcuhziub1649 [place], [place] [address]Dm. 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 Patient on mycophenolate mofetil , cellcept and prednisone Mixed hyperlipidemia due to type 2 diabetes mellitus ([facility]) 11/29/2021 Osteomyelitis ([facility]) 11/29/2021 Paroxysmal atrial fibrillation ([facility]) Renal transplant, status post SA node dysfunction ([facility]) s/p pacemaker Type 2 diabetes mellitus with diabetic neuropathy, with long-term current use of insulin ([facility]) 02/24/2002 PAST SURGICAL HISTORY Procedure [...] by mouth daily with lunch. Magic Cup [place] with lunch aspirin, enteric coated (ASPIRIN, ENTERIC COATED) 81 mg EC tablet Take 1 tablet by (more content not included)... Normal [facility] PROTIMEon 02-25-2022 INR Coag (PPP) [Relative time] 1.31 {INR} Normal [facility] Comment on above: Performed By: #### P T ####[facility] Gxwhxazqsl56[address] [place] [address]Dr. Farhat Leal INR GUIDELINES SEE BELOW Normal [facility] Comment on above: Result Comment: MALINA RED INR: 2.0 - 3.0 CONDITIONS NOT LISTED BELOW 2.5 - 3.5 FOR PROSTHETIC HEART VALVE REPLACEMENT 2.5 - 3.5 RECURRENT THROMBOSIS Performed By: #### P T ####[facility] Zuygiilzry0428 [place], [place] [address]Yx. Farhat Leal PT Coag (PPP) [Time] 13.7 s Critically high 9.0-11.6 [facility] Comment on above: Performed By: #### P T ####[facility] Nruwqnghmg0339 [place], [place] [address]Oe. Farhat Leal CNPNon 02-19-2022 CNPN Telephone (TXCTGL) ALEX ALMONTE ([id number]) 1945 M TRN Date Time Provider Department [...] by mouth daily with lunch. 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 DIABETES UNCOMPL ADULT-UNCONTRLLED [[id number]] 02/24/2002 KIDNEY TRANSPLANT STATUS [Z94.0] 09/07/2003 PROPHYLACTIC IMMUNOTHERAPY [Z29.8] 07/30/2006 SKILLED NURSING STEROIDS [PHW6982] 07/30/2006 VITAMIN D DEFICIENCY NOS [E55.9] 09/07/2008 [...] perfusion [R09.89] 09/30/2021 PAD (peripheral artery disease) ([facility]) [I73.9] 09/26/2021 Osteomyelitis (HCC) [M86.9] 11/29/2021 Class 1 obesity due to excess calories with ser*11/29/2021 Mixed hyperlipidemia due to type 2 diabetes myles*11/29/2021 Type 2 diabetes mellitus with diabetic peripher*11/29/2021 Atherosclerosis of chehalis artery of extremity w*11/29/2021 Malnutrition of moderate degree (HCC) [E44.0] 12/01/2021 Dermatitis associated with moisture [L30.8] 12/04/2021 Encounter Status:Closed by AUGUSTA MEDRANO on 02/19/22 Normal [facility] Sonya 02-18-2022 CNPN Telephone (PODCCP) SUZYALEX Love ([id number]) 1945 M TRN Date Time Provider Department 02/18/22 DEVON MOREIRA PODCCP During your visit today, we recorded the following information about you: Yumiko Denise 02/18/2022 3:16 PM Signed Reason for call: Mr. Almonte would like to request a sooner appointment with Dr. Peterson than 04/13/2022. Contact Name (if not the patient) Alex's nurse Home and cell number(Ask for Alex's nurse) [phone] Diagnosis 4 mo f/u wound check Best [...] by mouth daily with lunch. 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 DIABETES UNCOMPL ADULT-UNCONTRLLED [[id number]] 02/24/2002 KIDNEY TRANSPLANT STATUS [Z94.0] 09/07/2003 PROPHYLACTIC IMMUNOTHERAPY [Z29.8] 07/30/2006 SKILLED NURSING STEROIDS [[id number]] 07/30/2006 VITAMIN D DEFICIENCY NOS [E55.9] 09/07/2008 [...] diabetes mellitus with diabetic peripher*11/29/2021 Atherosclerosis of chehalis artery of extremity w*11/29/2021 Malnutrition of moderate degree (HCC) [E44.0] 12/01/2021 Dermatitis associated with moisture [L30.8] 12/04/2021 Encounter Status:Closed by CHEASTY (more content not included)... Normal [facility] CNOVon 02-05-2022 CNOV Office Visit (TXCTGL ) ALEX ALMONTE ([id number]) 1945 M TRN Date Time Provider Department 02/05/22 8:20 AM [facility] TX[facility] TXCTGL During your visit today, we recorded the following information about you: Temperature Pulse Blood pressure 96.7 degrees 79/minute 72/42 Asia Piek MD 02/05/2022 9:38 AM Signed [facility] Transplant Follow up Portions of this [...] and snacks patient declined. Indra scale at [facility]: 166.2 lbs per patient. Bed sore on coccyx causing discomfort. Being changed regularly at [facility]- reported to be smaller around but still as deep. Patient not very up to date with medications. Patient brought paperwork from [facility] with all medications being received. Patient unsure if they have been drawing labs regularly. Last Tac from 01/19: 12.9 and K 5.9. In need of current labs. Lab orders will be sent with patient and follows as below: Kidney and Pancreas Transplant Standing Lab Orders [address] [place], [place] [address] February 05, 2022 Alex Almonte 1945 [id number] STANDARD TESTING: Diagnosis Codes: Z94.0 Kidney Transplant [...] AT YOUR LABORATORY FACILITY AND FAX TO [phone]. PLEASE CALL [phone]. Provider: Dr. Pike Current Outpatient Medications Medication [...] Take 237 (more content not included)... Normal [facility] PROTEIN CREATININE RATIOon 1 04-08-2021 Protein/Creatinine (U) [Mass ratio] 0.10 mg/mg <0.15 mg/mg [facility] PROTIMEon 02-05-2022 INR Coag (PPP) [Relative time] 2.90 {INR} Normal [facility] Comment on above: Performed By: #### P T ####[facility] Rkejolwfyq9[address] [place], [place] [address]QgDr. Farhat Leal INR GUIDELINES SEE BELOW Normal [facility] Comment on above: Result Comment: MALINA RED INR: 2.0 - 3.0 CONDITIONS NOT LISTED BELOW 2.5 - 3.5 FOR PROSTHETIC HEART VALVE REPLACEMENT 2.5 - 3.5 RECURRENT THROMBOSIS Performed By: #### P T ####[facility] Qfftcorwxj8561 [place], [place] [address]Ey. Farhat Leal PT Coag (PPP) [Time] 29.2 s Critically high 9.0-11.6 [facility] Comment on above: Performed By: #### P T ####[facility] Jorqdzcsgb52[address] [place] [id number]. Farhat Elvis Prot/Creat Uron 02-05-2022 Protein/Creatinine (U) [Mass ratio] 0.10 mg/mg Normal <0.15 [facility] Comment on above: Order Comment: Speci men Type: URINE SPECIMENOrdering Facility: [facility] Address: [address] [place] [address] Result Comment: Adul t Proteinuria Categories: <0.15 mg/mg is considered normal to mildly increased 0.15 - 0.50 mg/mg is considered moderately increased >0.50 mg/mg is considered severely increased KDIGO. (2013). KDIGO 2012 Clinical Practice Guideline for the Evaluation and Management of Chronic Kidney Disease. Official Journal of the International Society of Nephrology, 3(1), 1-150. Performed By: #### 2 890-2 ####[facility] [id number] [place] [address] [place] Protein/Creatinine (U) [Mass ratio]on 02-05-2022 Creatinine (U) [Mass/Vol] 86.9 mg/dL 20.0 - 300.0 mg/dL [facility] Protein (U) [Mass/Vol] 9 mg/dL 0 - 20 mg/dL [facility] Creatinine (U) [Mass/Vol] 86.9 mg/dL Normal 20.0-300.0 [facility] Comment on above: Order Comment: Speci men Type: URINE SPECIMENOrdering Facility: [facility] Address: [address] [place] [address] Performed By: #### 2 890-2 ####[facility] [id number] [place] [address] [place] Protein (U) [Mass/Vol] 9 mg/dL Normal 0-20 Cl [facility] Comment on above: Order Comment: Speci men Type: URINE SPECIMENOrdering Facility: [facility] Address: [address] [place], [place] [address] Performed By: #### 2 890-2 ####[facility] LABCL[facility] [id number] [place] [address] [place] URINALYSIS, DIPSTICK ONLYon 02-05-2022 Bilirubin Ql (U) Negative Normal Negative [facility] Comment on above: Order Comment: Speci men Type: URINE SPECIMEN Ordering Facility: [facility] Address: [address] [place], [place] [id number] Performed By: #### U A #### [facility] CLIA [id number] [address] [place] [address] [place] Clarity (Unsp spec) Clear Normal Clear [facility] Comment on above: Order Comment: Speci men Type: URINE SPECIMEN Ordering Facility: [facility] Address: [address] [place], [place] [id number] Performed By: #### U A #### [facility] CLIA [id number] [address] [place] [address] [place] Color (U) Yellow Normal Yellow [facility] Comment on above: Order Comment: Speci men Type: URINE SPECIMEN Ordering Facility: [facility] Address: [address] [place], [place] [id number] Performed By: #### U A #### [facility] CLIA [id number] [address] [place] [address] [place] Glucose Test strip (U) [Mass/Vol] 3+ Abnormal Trace, Negative [facility] Comment on above: Order Comment: Speci men Type: URINE SPECIMEN Ordering Facility: [facility] Address: [address] [place], [place] [id number] Performed By: #### U A #### [facility] CLIA [id number] [address] [place] [address] [place] Hemoglobin Ql (U) Negative Normal Negative, Trace [facility] Comment on above: Order Comment: Speci men Type: URINE SPECIMEN Ordering Facility: [facility] Address: [address] [place] [address] Performed By: #### U A #### [facility] CLIA [id number] [address] [place] [address] [place] Ketones Ql (U) Trace Normal Negative, Trace [facility] Comment on above: Order Comment: Speci men Type: URINE SPECIMEN Ordering Facility: [facility] Address: [address] [place] [address] Performed By: #### U A #### [facility] CLIA [id number] [address] [place] [address] [place] Leukocyte esterase Test strip Ql (U) Negative Normal Negative, 25 Loraine/mL [facility] Comment on above: Order Comment: Speci men Type: URINE SPECIMEN Ordering Facility: [facility] Address: [address] [place] [address] Performed By: #### U A #### [facility] CLIA [id number] [address] [place] [address] [place] Nitrite Ql (U) Negative Normal Negative [facility] Comment on above: Order Comment: Speci men Type: URINE SPECIMEN Ordering Facility: [facility] Address: [address] [place] [address] Performed By: #### U A #### [facility] CLIA [id number] [address] [place] [address] [place] pH (U) 5.5 [pH] Normal 5.0-8.0 [facility] Comment on above: Order Comment: Speci men Type: URINE SPECIMEN Ordering Facility: [facility] Address: [address] [place] [address] Performed By: #### U A #### [facility] CLIA [id number] [facility] [place] Protein (U) [Mass/Vol] Negative Normal Trace , Negative [facility] Comment on above: Order Comment: Speci men Type: URINE SPECIMEN Ordering Facility: [facility] Address: [address] [place] [address] Performed By: #### U A #### [facility] CLIA [id number] [address] [place] [address] [place] Specific gravity (U) [Rel density] 1.014 Normal 1.005-1.030 [facility] Comment on above: Order Comment: Speci men Type: URINE SPECIMEN Ordering Facility: [facility] Address: [address] [place] [address] Performed By: #### U A #### [facility] CLIA [id number] [address] [place] [address] [place] Urobilinogen Ql (U) 1+ Abnormal Negative [facility] Comment on above: Order Comment: Speci men Type: URINE SPECIMEN Ordering Facility: [facility] Address: [address] [place] [address] Performed By: #### U A #### [facility] CLIA [id number] [address] [place] [address] [place] Bilirubin Ql (U) Negative Negative [facility] Clarity (Unsp spec) Clear Clear [facility] Color (U) Yellow Yellow [facility] Glucose Test strip (U) [Mass/Vol] 3+ Abnormal Trace, Negative [facility] Hemoglobin Ql (U) Negative Negative, Trace [facility] Ketones Ql (U) Trace Negative, Trace [facility] Leukocyte esterase Test strip Ql (U) Negative Negative, 25 Loraine/mL [facility] Nitrite Ql (U) Negative Negative [facility] pH (U) 5.5 [pH] 5.0 - 8.0 [facility] Protein (U) [Mass/Vol] Negative Trace , Negative [facility] Specific gravity (U) [Rel density] 1.014 1.005 - 1.030 [facility] Urobilinogen Ql (U) 1+ Abnormal Negative [facility] FK506 (TACROLIMUS) WHOLE BLO ODon 01-29-2022 Tacrolimus (FK506), Blood 11.1 ng/mL Normal 2.0-20.0 [facility] Comment on above: Result Comment: Trou gh (immediately following transplant) 15.0 . Trough (steady state, 2 weeks or more after transplant): 3.0 - 8.0 . Performed by LC-MS/MS technology. Performed By: #### F K506T ####[facility] Jlkr[address]re[address] [place], [place] [address]Dr. Farhat Leal PHOSPHORUSon 01-26-2022 Phosphate [Mass/Vol] 4.1 mg/dL Normal 2.6-4.7 [facility] Comment on above: Performed By: #### C CARA, PHOS ####[facility] Tcvxd[address]lsx[address] [place], [place] [address]DrSkylar Leal PROF 14(COMP METB)on 022 Albumin [Mass/Vol] 2.1 g/dL Critically low 3.4-5.0 [facility] Comment on above: Performed By: #### C CARA PHOS ####[facility] Ufugupglpr[address] [place], [place] [address]Dr. Farhat Leal Albumin/Globulin [Mass ratio] 0.6 {ratio} Normal [facility] Comment on above: Performed By: #### C CARA, PHOS ####[facility] Jzoyb[address] [place], [place] [address]Dr. Farhat Leal ALP [Catalytic activity/Vol] 89 U/L Normal 46-116 [facility] Comment on above: Performed By: #### C CARA, PHOS ####[facility] Vdkagzhtnd[address] [place], [place] [address]Dr. Farhat Leal ALT [Catalytic activity/Vol] 27 U/L Normal 16-63 [facility] Comment on above: Performed By: #### C CARA, PHOS ####[facility] Cdvsbigmso[address] [place], [place] [address]Dr. Farhat Leal Anion gap [Moles/Vol] 12.3 mmol/L Normal [facility] Comment on above: Performed By: #### C CARA, PHOS ####[facility] Pif[address]bgbqx65[address] [place] [address]Dr. Farhat Leal AST [Catalytic activity/Vol] 53 U/L Critically high 15-37 [facility] Comment on above: Performed By: #### C CARA, PHOS ####[facility] Gpfxmeyujz[address] [place], [place] [address]Dr. Farhat Leal Bilirubin [Mass/Vol] 0.6 mg/dL Normal 0.2-1.0 [facility] Comment on above: Performed By: #### C CARA, PHOS ####[facility] Nflruueyuj[address] [place], [place] [address]Dr. Farhat Leal Calcium [Mass/Vol] 8.0 mg/dL Critically low 8.5-10.1 [facility] Comment on above: Performed By: #### C CARA, PHOS ####[facility] Kezkvksold[address] [place], [place] [address]Dr. Farhat Leal Chloride [Moles/Vol] 97 mmol/L Critically low 98-107 [facility] Comment on above: Performed By: #### C CARA, PHOS ####[facility] Oxujciunwd[address] [place], [place] [address]Dr. Farhat Leal CO2 [Moles/Vol] 26.6 mmol/L Normal 21.0-32.0 [facility] Comment on above: Performed By: #### C CARA, PHOS ####[facility] Zdxdmzztfu[address] [place], [place] [address]Dr. Farhat Leal Creatinine [Mass/Vol] 1.03 mg/dL Normal 0.70-1.30 [facility] Comment on above: Performed By: #### C CARA, PHOS ####[facility] Rfshyjgblt44[address] [place] [address]Dr. Farhat Leal EGFR-AF BAHAMIAN >60 Normal >=60 The [facility] Comment on above: Performed By: #### C CARA, PHOS ####[facility] Uqknjgdzcx0438 [place] [address]Dr. Farhat Leal EGFR-NON AF BAHAMIAN >60 Normal >=60 [facility] Comment on above: Performed By: #### C CARA, PHOS ####[facility] Qqbdiaxaqj1775 [place] [address]Dr. Farhat Leal Globulin (S) [Mass/Vol] 3.7 g/dL Normal [facility] Comment on above: Performed By: #### C MP, PHOS ####[facility] Kcuukafghi6459 [place] [address]Dr. Farhat Leal Glucose [Mass/Vol] 287 mg/dL Critically high 74-106 T [facility] Comment on above: Performed By: #### C CARA, PHOS ####[facility] Wrywkzmbgq[address] [place], [place] [address]Dr. Farhat Leal Potassium [Moles/Vol] 3.9 mmol/L Normal 3.5-5.1 [facility] Comment on above: Performed By: #### C CARA, PHOS ####[facility] Tigxejjfuy[address] [place], [place] [address]Dr. Farhat Leal Protein [Mass/Vol] 5.8 g/dL Critically low 6.4-8.2 [facility] Comment on above: Performed By: #### C CARA, PHOS ####[facility] Uzyaixlaig[address] [place], [place] [address]Dr. Farhat Leal Sodium [Moles/Vol] 132 mmol/L Critically low 136-145 Th [facility] Comment on above: Performed By: #### C CARA, PHOS ####[facility] Ojuhhwz[address] [place], [place] [address]Dr. Farhat Leal Urea nitrogen [Mass/Vol] 23.0 mg/dL Critically high 7.0-18.0 [facility] Comment on above: Performed By: #### C MP, PHOS ####[facility] Filaxvtjam7[address] [place], [place] [address]Dr. Farhat Leal Urea nitrogen/Creatinine [Mass ratio] 22.3 mg/mg Normal [facility] Comment on above: Performed By: #### C MP, PHOS ####[facility] Vqnxgr[address]xyb[address] [place] [id number]. Farhat Leal FK506 (TACROLIMUS) WHOLE BLO ODon 01-21-2022 Tacrolimus (FK506), Blood 12.2 ng/mL Normal 2.0-20.0 [facility] Comment on above: Result Comment: Trou gh (immediately following transplant) 15.0 . Trough (steady state, 2 weeks or more after transplant): 3.0 - 8.0 . Performed by LC-MS/MS technology. Performed By: #### F K506T ####[facility] R[address]cy[address] [place] [phone]. Farhat Leal ACID FAST SMEAR AND CXon Acid Fast Culture Negative Normal [facility] [place] Comment on above: Result Comment: No a abdiel fast bacilli isolated after 6 weeks. Performed By: #### A FB ####[facility] [address] [place] [address]Dr. Farhat Leal Acid Fast Smear Negative Normal [facility] Comment on above: Performed By: #### A FB ####[facility] Ccshtkibjw40[address] [place] [phone]. Farhat Leal [employer] Specimen Processing Tissue Grinding Normal [facility] Comment on above: Performed By: #### A FB ####[facility] Dwmdqhovro[address] [place] [phone]. Farhat Leal [facility]22 DIAMANTEN Telephone (KIMBERLY) ALEX ALMONTE ([id number]) 1945 M TRN Date Time Provider Department 01/20/22 VAN OLIVAREZ During your visit today, we recorded the following information about you: Van Olivarez APRN.CNP 01/20/2022 1:14 PM Signed Labs noted from yesterday. Pt is currently residing at [facility], I spoke with the Nurse, the results has been addressed by Physician caring for pt. He had been placed on Chlor Con and this has been discontinued and hyperkalemia has been treated. Van Olivarez APRN.DIAMANTE Allergies As of Date: 01/20/2022 Noted Allergy Reaction PYRIDOSTIGMINE BROMIDE 08/04/2021 8 - GI Upset Date Reviewed: 01/15/2022 Reviewed by: Raquel Tai APRN.LCSW - Fully Assessed Reason for Visit: Results [...] by mouth daily with lunch. 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 Atherosclerosis of [place] artery of extremity w*11/29/2021 Malnutrition of moderate degree (HCC) [E44.0] 12/01/2021 Dermatitis associated with moisture [L30.8] 12/04/2021 Encounter Status:Closed by VAN OLIVAREZ on 01/20/22 Normal [facility] Orders Onlyon 01-20-2022 Orders Only [id number] Alex Almonte 1945 Date Provider Department Center 01/20/2022 Francisco Javier-SUSIE HERNANDES [facility] No family history on file Normal [facility] PROF 14(COMP METB)on 022 Albumin [Mass/Vol] 1.9 g/dL Critically low 3.4-5.0 [facility] Comment on above: Performed By: #### C MP ####[facility] [address] [place] [address]Dr. Farhat Leal Albumin/Globulin [Mass ratio] 0.5 {ratio} Normal [facility] Comment on above: Performed By: #### C MP ####[facility] Cdoyrnqhdl8[address] [place] [address]Dr. Farhat Leal ALP [Catalytic activity/Vol] 78 U/L Normal 46-116 [facility] Comment on above: Performed By: #### C MP ####[facility] [address]wus[address] [place] [address]Dr. Farhat Leal ALT [Catalytic activity/Vol] 22 U/L Normal 16-63 [facility] Comment on above: Performed By: #### C MP ####[facility] Ok[address]avomir[address] [place] [phone]. Farhat Leal Anion gap [Moles/Vol] 8.0 mmol/L Normal [facility] Comment on above: Performed By: #### C MP ####[facility] Cschqmnfqd8708 [place] [address]Dr. Farhat Leal AST [Catalytic activity/Vol] 92 U/L Critically high 15-37 [facility] Comment on above: Performed By: #### C MP ####[facility] Wsfwjccwts5946 [place] [address]Dr. Farhat Leal Bilirubin [Mass/Vol] 0.7 mg/dL Normal 0.2-1.0 [facility] Comment on above: Performed By: #### C MP ####[facility] Loslqmjcxq[address] [place], [place] [address]Dr. Farhat Leal Calcium [Mass/Vol] 7.8 mg/dL Critically low 8.5-10.1 [facility] Comment on above: Performed By: #### C MP ####[facility] Qyejskkyse[address] [place], [place] [address]Dr. Farhat Leal Chloride [Moles/Vol] 99 mmol/L Normal 98-107 [facility] Comment on above: Performed By: #### C MP ####[facility] Wzdogfstwx[address] [place], [place] [address]Dr. Farhat Leal CO2 [Moles/Vol] 30.9 mmol/L Normal 21.0-32.0 The [facility] Comment on above: Performed By: #### C MP ####[facility] Cbpqrrjsun[address] [place], [place] [address]Dr. Farhat Elvis Creatinine [Mass/Vol] 0.95 mg/dL Normal 0.70-1.30 [facility] Comment on above: Performed By: #### C MP ####[facility] S[address]kwilhvgc[address] [place], [place] [address]Dr. Farhat Elvis EGFR-AF BAHAMIAN >60 Normal >=60 [facility] Comment on above: Performed By: #### C MP ####[facility] Qwopojavjm[address] [place], [place] [address]Dr. Farhat Leal EGFR-NON AF BAHAMIAN >60 Normal >=60 [facility] Comment on above: Performed By: #### C MP ####[facility] Hpxomkchaw57[address] [place] [address]Dr. Farhat Leal Globulin (S) [Mass/Vol] 3.9 g/dL Normal [facility] Comment on above: Performed By: #### C MP ####[facility] Fwqracjuyf9484 [place] [address]Dr. Farhat Leal Glucose [Mass/Vol] 124 mg/dL Critically high 74-106 T [facility] Comment on above: Performed By: #### C MP ####[facility] Hplvkgwvep6264 [place] [address]Dr. Farhat Leal Potassium [Moles/Vol] 5.9 mmol/L Critically high 3.5-5.1 [facility] Comment on above: Performed By: #### C MP ####[facility] Nypxcdkjtk1434 [place] [address]Dr. Farhat Leal Protein [Mass/Vol] 5.8 g/dL Critically low 6.4-8.2 [facility] Comment on above: Performed By: #### C MP ####[facility] C[address]qgkdxti[address] [place], [place] [address]Dr. Farhat Leal Sodium [Moles/Vol] 132 mmol/L Critically low 136-145 [facility] Comment on above: Performed By: #### C MP ####[facility] Beqsyotloi3081 [place] [address]Dr. Farhat Leal Urea nitrogen [Mass/Vol] 18.0 mg/dL Normal 7.0-18.0 [facility] Comment on above: Performed By: #### C MP ####[facility] Chbwmoozsj9507 [place] [address]Dr. Farhat Leal Urea nitrogen/Creatinine [Mass ratio] 18.9 mg/mg Normal [facility] Comment on above: Performed By: #### C MP ####[facility] Hqixqzrlrh8131 [place] [address]Dr. Farhat Leal INR (POC)on 01-12-2022 INR Coag (PPP) [Relative time] 2.6 {INR} High 0.8 - 1.2 [facility] Internal Quality Check Acceptable Cl [facility] ACID FAST SMEAR AND CXon Acid Fast Culture Negative Normal [facility] [place] Comment on above: Result Comment: No a abdiel fast bacilli isolated after 6 weeks. Performed By: #### A FB ####[facility] Vpxwimsstt[address]21 [place], [place] [address]Dw. Farhat Leal Acid Fast Smear Negative Normal [facility] Comment on above: Performed By: #### A FB ####[facility] Ylvzjbnmkf8[address] [place] [phone]. Farhat Leal [employer] Specimen Processing Direct Inoculation [facility] Comment on above: Performed By: #### A FB ####[facility] Asyqstwzaz[address] [place], [place] [address]Dr. Farhat Leal ACID FAST SMEAR AND CXon Acid Fast Culture Negative Normal [facility] [place] Comment on above: Result Comment: No a abdiel fast bacilli isolated after 6 weeks. Performed By: #### A FB ####[facility] Umahxqpole[address] [place], [place] [address]Dr. Madelynlorri Leal Acid Fast Smear Negative Normal [facility] Comment on above: Performed By: #### A FB ####[facility] Rpuoqteecc3345 [place] [phone]. Farhat Leal [employer] Specimen Processing Tissue Grinding [facility] Comment on above: Performed By: #### A FB ####[facility] Itptxdwpfz8392 [place] [phone]. Farhat Leal FUNGAL CULTUREon 01-02-2022 Fungus (Mycology) Culture Final report Normal [facility] Comment on above: Performed By: #### C XFUN ####[facility] Rvpswnlseb[address] [place], [place] [address]Dr. Farhat Leal Fungus Stain Final report Normal [facility] Comment on above: Performed By: #### C XFUN ####[facility] [address] [place] [address]. Farhat Leal Result 1 Comment Normal [facility] Comment on above: Result Comment: ANNI/ Calcofluor preparation: no fungus observed. Performed By: #### C XFUN ####[facility] Xyrbhw[address]ft[address] [place], [place] [address]Skylar Leal Result Comment: No y east or mold isolated after 4 weeks. FK506 (TACROLIMUS) WHOLE BLO ODon 12-31-2021 Tacrolimus (FK506), Blood 7.7 ng/mL Normal 2.0-20.0 [facility] Comment on above: Result Comment: Trou gh (immediately following transplant) 15.0 . Trough (steady state, 2 weeks or more after transplant): 3.0 - 8.0 . Performed by LC-MS/MS technology. Performed By: #### F K506T ####[facility] [address] [place] [address]. Farhat Leal HEMOGRAM AND PLATELon 2021 Hematocrit (Bld) [Volume fraction] 27.1 % Critically low 42.0-54.0 [facility] Comment on above: Performed By: #### H H ####[facility] Jvaugjwnwp[address] [place], [place] [address]Skylar Leal Hemoglobin (Bld) [Mass/Vol] 8.7 g/dL Critically low 14.0-18.0 [facility] Comment on above: Performed By: #### H H ####[facility] [address]my[address]ck[address] [place], [place] [address]Skylar Leal MCH (RBC) [Entitic mass] 30.3 pg Normal 25.9-34.0 [facility] Comment on above: Performed By: #### H H ####[facility] Qu[address]sshkbw[address] [place], [place] [address]Skylar Leal MCHC (RBC) [Mass/Vol] 32.1 g/dL Normal 29.9-35.2 [facility] Comment on above: Performed By: #### H H ####[facility] Ugwsaxkeub[address] [place], [place] [address]Skylar Leal MCV (RBC) [Entitic vol] 94.4 fL Critically high 80.0-94.0 [facility] Comment on above: Performed By: #### H H ####[facility] Lkexumlhqq9926 [place] [address]Dr. Farhat Leal PLT 355 103/ul Normal 150-450 [facility] Comment on above: Performed By: #### H H ####[facility] Gjjeetnabb3549 [place] [address]Dr. Farhat Elvis RBC 2.87 106/ul Critically low 4.70-6.10 [facility] Comment on above: Performed By: #### H H ####[facility] Eeqgjeesnf58[address] [place] [address]Dr. Madelynlorri Elvis WBC 6.0 103/ul Normal 4.0-11.0 [facility] Comment on above: Performed By: #### H H ####[facility] Fisxxxblwi8129 [place] [address]Dr. Farhat Leal PHOSPHORUSon 12-29-2021 Phosphate [Mass/Vol] 2.5 mg/dL Critically low 2.6-4.7 [facility] Comment on above: Performed By: #### P HOS, CMP ####[facility] Bywfvmwwhq[address] [place], [place] [address]DrSkylar Leal PROF 14(COMP METB)on 022 Albumin [Mass/Vol] 1.7 g/dL Critically low 3.4-5.0 [facility] Comment on above: Performed By: #### P HOS, CMP ####[facility] Qivmemigwl9606 [place] [address]Dr. Farhat Leal Albumin/Globulin [Mass ratio] 0.5 {ratio} Normal [facility] Comment on above: Performed By: #### P HOS, CMP ####[facility] Ksewcwzqlf[address] [place], [place] [address]Dr. Madelynlorri Leal ALP [Catalytic activity/Vol] 78 U/L Normal 46-116 [facility] Comment on above: Performed By: #### P HOS, CMP ####[facility] [address]ewmcnuufb[address] [place], [place] [address]Dr. Farhat Leal ALT [Catalytic activity/Vol] 12 U/L Critically low 16-63 [facility] Comment on above: Performed By: #### P HOS, CMP ####[facility] Vtpysoqnqp4379 [place] [address]Dr. Farhat Leal Anion gap [Moles/Vol] 5.1 mmol/L Normal [facility] Comment on above: Performed By: #### P HOS, CMP ####[facility] Bsllluxicg6185 [place] [address]Dr. Farhat Leal AST [Catalytic activity/Vol] 22 U/L Normal 15-37 [facility] Comment on above: Performed By: #### P HOS, CMP ####[facility] [address]emjhugpny[address] [place], [place] [address]Dr. Farhat Leal Bilirubin [Mass/Vol] 0.6 mg/dL Normal 0.2-1.0 [facility] Comment on above: Performed By: #### P HOS, CMP ####[facility] Kczsagmupo[address] [place], [place] [address]Dr. Farhat Leal Calcium [Mass/Vol] 8.1 mg/dL Critically low 8.5-10.1 [facility] Comment on above: Performed By: #### P HOS, CMP ####[facility] Apvvhlhsbx[address] [place], [place] [address]Dr. Farhat Leal Chloride [Moles/Vol] 100 mmol/L Normal 98-107 [facility] Comment on above: Performed By: #### P HOS, CMP ####[facility] Ijgumxdaez4587 [place] [address]Dr. Farhat Leal CO2 [Moles/Vol] 34.2 mmol/L Critically high 21.0-32.0 [facility] Comment on above: Performed By: #### P HOS, CMP ####[facility] Uaesuxypmv3120 [place] [address]Dr. Farhat Leal Creatinine [Mass/Vol] 0.92 mg/dL Normal 0.70-1.30 [facility] Comment on above: Performed By: #### P HOS, CMP ####[facility] Ktpntjqmhh2624 [place] [phone]. Farhat Leal EGFR-AF BAHAMIAN >60 Normal >=60 [facility] Comment on above: Performed By: #### P HOS, CMP ####[facility] Kvihomktzw1649 [place] [phone]. Farhat Leal EGFR-NON AF BAHAMIAN >60 Normal >=60 [facility] Comment on above: Performed By: #### P HOS, CMP ####[facility] Mhapgctxpl6337 [place] [phone]. Farhat Leal Globulin (S) [Mass/Vol] 3.3 g/dL Normal [facility] Comment on above: Performed By: #### P HOS, CMP ####[facility] Jvuscrttme[address] [place], [place] [address]Dr. Farhat Leal Glucose [Mass/Vol] 116 mg/dL Critically high 74-106 [facility] Comment on above: Performed By: #### P HOS, CMP ####[facility] Btvkbjcqgl8[address] [place], [place] [address]Dr. Farhat Leal Potassium [Moles/Vol] 3.3 mmol/L Critically low 3.5-5.1 [facility] Comment on above: Performed By: #### P HOS, CMP ####[facility] Vnntrchkje6[address] [place], [place] [address]Dr. Farhat Leal Protein [Mass/Vol] 5.0 g/dL Critically low 6.4-8.2 [facility] Comment on above: Performed By: #### P HOS, CMP ####[facility] Pbxyljxwpi4944 [place] [address]Dr. Farhat Leal Sodium [Moles/Vol] 136 mmol/L Normal 136-145 [facility] Comment on above: Performed By: #### P HOS, CMP ####[facility] Rcnzveictb[address] [place], [place] [address]Dr. Farhat Leal Urea nitrogen [Mass/Vol] 14.0 mg/dL Normal 7.0-18.0 [facility] Comment on above: Performed By: #### P HOS, CMP ####[facility] Vizuuouzsn[address] [place], [place] [address]Dr. Farhat Leal Urea nitrogen/Creatinine [Mass ratio] 15.2 mg/mg Normal [facility] Comment on above: Performed By: #### P HOS, CMP ####[facility] Yqldnvrlnz[address] [place], [place] [address]Dr. Farhat Leal PROTIMEon 12-29-2021 INR Coag (PPP) [Relative time] 1.26 {INR} Normal [facility] Comment on above: Performed By: #### P T ####[facility] Juvsvndrjl[address] [place], [place] [address]Dr. Farhat Leal INR GUIDELINES SEE BELOW Normal [facility] Comment on above: Result Comment: MALINA RED INR: 2.0 - 3.0 CONDITIONS NOT LISTED BELOW 2.5 - 3.5 FOR PROSTHETIC HEART VALVE REPLACEMENT 2.5 - 3.5 RECURRENT THROMBOSIS Performed By: #### P T ####[facility] [address]heenvw[address] [place], [place] [address]Dr. Farhat Leal PT Coag (PPP) [Time] 13.4 s Critically high 9.0-11.6 [facility] Comment on above: Performed By: #### P T ####[facility] Aajalgmost[address] [place], [place] [address]Dr. Farhat Leal XR MODIFIED BARIUM SWALLOWon 12-25-2021 XR MODIFIED BARIUM SWALLOW Normal [facility] FUNGAL CULTUREon 12-24-2021 Fungus (Mycology) Culture Final report Normal [facility] Comment on above: Performed By: #### C XFUN ####[facility] Nedobyowwy[address] [place], [place] [address]Dr. Farhat Leal Fungus Stain Final report Normal [facility] Comment on above: Performed By: #### C XFUN ####[facility] Nmelvsnzda[address] [place], [place] [address]Dr. Farhat Leal Result 1 Comment Normal [facility] Comment on above: Result Comment: ANNI/ Calcofluor preparation: no fungus observed. Performed By: #### C XFUN ####[facility] Pxghaknrzh[address] [place], [place] [address]Dr. Farhat Leal Result Comment: No y east or mold isolated after 4 weeks. VANCOMYCIN TROUGHon 12-21-19 VANCOMYCIN TROUGH 14.4 ug/ml Normal 5.0-20.0 [facility] [place] Comment on above: Performed By: #### V ANCT ####[facility] [address]ygxqcot[address] [place] [address]Dr. Farhat Leal CBC AUTO DIFFon 12-14-2021 BASO # 0.0 103/ul Normal 0.0-0.1 [facility] Comment on above: Performed By: #### C BC ####[facility] Kbhtcqojqn01[address] [place] [address]Dr. Farhat Leal Basophils/100 WBC (Bld) 0.2 % Normal 0.2-2.0 [facility] Comment on above: Performed By: #### C BC ####[facility] Xwhwphhale[address] [place], [place] [address]Dr. Farhat Leal EO # 0.2 103/ul Normal 0.0-0.7 [facility] Comment on above: Performed By: #### C BC ####[facility] Pcxdpwkbft7190 [place] [address]Dr. Farhat Leal Eosinophils/100 WBC (Bld) 2.1 % Normal 0.9-7.0 [facility] Comment on above: Performed By: #### C BC ####[facility] Cbgqvmlcsm7390 [place] [address]Dr. Farhat Leal Erythrocyte distribution width (RBC) [Ratio] 18.2 % Critically high 11.0-15.0 [facility] Comment on above: Performed By: #### C BC ####[facility] Nspltibpfo5380 [place] [address]DrSkylar Leal Hematocrit (Bld) [Volume fraction] 25.8 % Critically low 42.0-54.0 [facility] Comment on above: Performed By: #### C BC ####[facility] Cyowazkhen0764 [place] [address]Dr. Farhat Leal Hemoglobin (Bld) [Mass/Vol] 8.0 g/dL Critically low 14.0-18.0 [facility] Comment on above: Performed By: #### C BC ####[facility] Hcxyphvxvu0830 [place] [address]DrSkylar Leal IG # 0.08 10e3/ul Critically high 0.00-0.03 [facility] [place] Comment on above: Performed By: #### C BC ####[facility] Zlgkintadv3419 [place] [address]DrSkylar Leal IG % 0.7 % Critically high 0.0-0.5 [facility] Comment on above: Performed By: #### C BC ####[facility] Uncuqcyyvt8501 [place] [address]DrSkylar Leal LYMPH # 0.9 103/ul Critically low 1.2-3.8 [facility] Comment on above: Performed By: #### C BC ####[facility] Hdvdxitjpj0728 [place] [address]DrSkylar Leal Lymphocytes/100 WBC (Bld) 8.7 % Critically low 20.5-60.0 [facility] Comment on above: Performed By: #### C BC ####[facility] Gglgbargll1530 [place] [address]DrSkylar Leal MANUAL DIFF REQ NO Normal [facility] Comment on above: Performed By: #### C BC ####[facility] Jdmeilodck9871 [place] [address]DrSkylar Leal MCH (RBC) [Entitic mass] 30.0 pg Normal 25.9-34.0 [facility] Comment on above: Performed By: #### C BC ####[facility] Rpujeikbsv0305 [place] [id number] Leal MCHC (RBC) [Mass/Vol] 31.0 g/dL Normal 29.9-35.2 [facility] Comment on above: Performed By: #### C BC ####[facility] Gnvbkjuscq4500 [place] [id number] Leal MCV (RBC) [Entitic vol] 96.6 fL Critically high 80.0-94.0 [facility] Comment on above: Performed By: #### C BC ####[facility] Yznqphiqix2480 [place] [id number]. Farhat Leal MONO # 0.7 103/ul Normal 0.3-0.8 [facility] Comment on above: Performed By: #### C BC ####[facility] Akfysigdmz0233 [place] [id number]. Farhat Leal Monocytes/100 WBC (Bld) 6.7 % Normal 1.7-12.0 [facility] Comment on above: Performed By: #### C BC ####[facility] Vweiwdsabp27[address] [place] [id number]. Farhat Leal NEUT # 8.8 103/ul Critically high 1.4-6.5 [facility] Comment on above: Performed By: #### C BC ####[facility] Vulgihmqyb6293 [place] [address]Dr. Farhat Leal Neutrophils/100 WBC (Bld) 81.6 % Critically high 43.0-75.0 [facility] Comment on above: Performed By: #### C BC ####[facility] Qnbmbnnxpo1384 [place] [id number]. Farhat Leal Platelet mean volume (Bld) [Entitic vol] 10.5 fL Normal 9.5-13.5 [facility] Comment on above: Performed By: #### C BC ####[facility] Guxbqvhfqm7934 [place] [id number]. Farhat Leal PLT 285 103/ul Normal 150-450 [facility] Comment on above: Performed By: #### C BC ####[facility] Pynrdevdqh1754 [place] [phone]. Farhat Leal RBC 2.67 106/ul Critically low 4.70-6.10 [facility] Comment on above: Performed By: #### C BC ####[facility] Lftbopxrsa7916 [place] [id number]. Farhat Leal WBC 10.7 103/ul Normal 4.0-11.0 [facility] Comment on above: Performed By: #### C BC ####[facility] Lorgpbrxwq4413 [place] [address]Dr. Farhat Leal PROF CHEM 8 (BAS METB)on Anion gap [Moles/Vol] 12.4 mmol/L Normal [facility] Comment on above: Performed By: #### B MP ####[facility] Kbfwrtdyuh7363 [place] [address]Dr. Farhat Leal Calcium [Mass/Vol] 7.8 mg/dL Critically low 8.5-10.1 [facility] Comment on above: Performed By: #### B MP ####[facility] Zkdetrvcrr[address] [place], [place] [address]Dr. Farhat Leal Chloride [Moles/Vol] 102 mmol/L Normal 98-107 [facility] Comment on above: Performed By: #### B MP ####[facility] Eqxangwold[address] [place], [place] [address]Dr. Farhat Leal CO2 [Moles/Vol] 28.1 mmol/L Normal 21.0-32.0 [facility] Comment on above: Performed By: #### B MP ####[facility] Bgxwmqdkxc029[address] [place], [place] [address]Dr. Farhat Leal Creatinine [Mass/Vol] 1.24 mg/dL Normal 0.70-1.30 [facility] Comment on above: Performed By: #### B MP ####[facility] Lbuaffnhdc[address] [place], [place] [address]Dr. Farhat Leal EGFR-AF BAHAMIAN >60 Normal >=60 [facility] Comment on above: Performed By: #### B MP ####[facility] Ppxqaiccxu01[address] [place], [place] [address]Dr. Farhat Leal EGFR-NON AF BAHAMIAN 57 mL/min/1.73m2 Critically low >=60 [facility] Comment on above: Performed By: #### B MP ####[facility] Gzcbjzmqvw[address] [place], [place] [address]DrSkylar Leal Glucose [Mass/Vol] 296 mg/dL Critically high 74-106 T [facility] Comment on above: Performed By: #### B MP ####[facility] Fhtqcvkblg38[address] [place], [place] [address]Dr. Farhat Leal Potassium [Moles/Vol] 3.5 mmol/L Normal 3.5-5.1 [facility] Comment on above: Performed By: #### B MP ####[facility] Yspbukuavc17[address] [place], [place] [address]Dr. Farhat Leal Sodium [Moles/Vol] 139 mmol/L Normal 136-145 [facility] Comment on above: Performed By: #### B MP ####[facility] Usewmqakap[address] [place], [place] [address]Dr. Farhat Leal Urea nitrogen [Mass/Vol] 27.0 mg/dL Critically high 7.0-18.0 [facility] Comment on above: Performed By: #### B MP ####[facility] Xtqrkeqbeq[address] [place], [place] [address]Dr. Farhat Leal Urea nitrogen/Creatinine [Mass ratio] 21.8 mg/mg Normal [facility] Comment on above: Performed By: #### B MP ####[facility] Gukqbjhmri[address] [place], [place] [address]Dr. Farhat Leal PROTIMEon 12-14-2021 INR Coag (PPP) [Relative time] 3.36 {INR} Normal [facility] Comment on above: Performed By: #### P T ####[facility] Gslnnrirtb[address] [place], [place] [address]Dr. Farhat Leal INR GUIDELINES SEE BELOW Normal [facility] Comment on above: Result Comment: MALINA RED INR: 2.0 - 3.0 CONDITIONS NOT LISTED BELOW 2.5 - 3.5 FOR PROSTHETIC HEART VALVE REPLACEMENT 2.5 - 3.5 RECURRENT THROMBOSIS Performed By: #### P T ####[facility] [address]vectkqbmc[address] [place], [place] [address]Dr. Farhat Leal PT Coag (PPP) [Time] 33.5 s Critically high 9.0-11.6 [facility] Comment on above: Performed By: #### P T ####[facility] Hivjgdpgto4061 [place], [place] [address]YfSkylar Leal XR CHEST 1 Von 12-14-2021 XR CHEST 1 V Normal [facility] No Panel Informationon 12-01 BLANK _ [facility] Implant Date 04/22/2012 [facility] CHECKon AMS Duration (ms) 5 of 8 [facility] AMS Fallback Rate (bpm) DDIR [facility] AV Delay Adaptive Paced Minimum (ms) 300 ms [facility] AV Delay Adaptive Rate Maximum (bpm) 130 {beats}/min [facility] AV Delay Adaptive Rate Minimum (bpm) 70 {beats}/min [facility] AV Delay Adaptive Sensed Minimum (ms) 300 ms [facility] AV Delay Paced (ms) 300 ms [facility] AV Delay Sensed (ms) 300 ms [facility] Jaciel LV Pacing Polarity Unknown [facility] Jaciel LV Sensing Polarity Unknown [facility] Jaciel RA Pacing Amplitude (volts) 2.4 V [facility] Jaciel RA Pacing Polarity BI [facility] Jaciel RA Pacing Pulse Width (ms) 0.4 ms [facility] Jaciel RA Sensing Amplitude (mvolts) AUTO [facility] Jaciel RA Sensing Blanking Period (ms) 56 ms [facility] Jaciel RA Sensing Polarity BI [facility] Jaciel RA Sensing Refractory Period (ms) AUTO [facility] Jaciel RV Pacing Amplitude (volts) 3.4 V [facility] Jaciel RV Pacing Polarity BI [facility] Jaciel RV Pacing Pulse Width (ms) 0.4 ms [facility] Jaciel RV Sensing Amplitude (mvolts) AUTO [facility] Jaciel RV Sensing Blanking Period (ms) 30 ms [facility] Jaciel RV Sensing Polarity BI [facility] Jaciel RV Sensing Refractory Period (ms) 250 ms [facility] Hysteresis Rate (bpm) 60 {beats}/min [facility] Lead1 Mfg SUZETTE [facility] Lead2 Mfg SUZETTE [facility] Location RA [facility] Location RV [facility] Lower Rate (bpm) 60 {beats}/min [facility] Max Sensor Rate (bmp) 130 {beats}/min [facility] Model 385794 Monika Dominguez [facility] Model 199412 [facility] Model 955947 [facility] Pacemaker Dependent? NO [facility] PM-Device Mfg BIO [facility] PM-PMT Intervention ON [facility] PM-PVC Intervention ON [facility] PM-Rate Modulation Acceleration Reaction 4 s [facility] PM-Rate Modulation Deceleration 0.5 m [facility] PM-Rate Modulation [place] 23 [facility] PM-Rate Modulation Threshold Medium [facility] RA Bipolar Impedance ohms 448 ohm [facility] Rhythm AF with controlled ventricular rate. [facility] RV Bipolar Impedance ohms 390 ohm [facility] Serial Number [id number] [facility] Serial Number [id number] [facility] Serial Number [id number] [facility] Thresh RA Sensing Amplitude (mvolts) 2.4 mV [facility] Thresh RV Capture Amplitude (volts) 1.8 V [facility] Thresh RV Capture Duration (ms) 0.4 ms [facility] Thresh RV Sensing Amplitude (mvolts) 2.4 mV [facility] Tracking Rate (bpm) 160 {beats}/min [facility] BNPon 11-28-2021 Natriuretic peptide B (Bld) [Mass/Vol] 05149.0 pg/mL Critically high <=1,800.0 [facility] Comment on above: Performed By: #### C MP, BNP, CRP ####[facility] Wpptrioxid75[address] [place], [place] [address]Dr. Farhat Leal CBC AUTO DIFFon 11-28-2021 BASO # 0.0 103/ul Normal 0.0-0.1 [facility] Comment on above: Performed By: #### C BC ####[facility] Zwntifstcz[address] [place], [place] [address]Dr. Farhat Leal Basophils/100 WBC (Bld) 0.3 % Normal 0.2-2.0 [facility] Comment on above: Performed By: #### C BC ####[facility] Kydqjdwhnc[address] [place], [place] [address]Dr. Farhat Leal EO # 0.1 103/ul Normal 0.0-0.7 [facility] Comment on above: Performed By: #### C BC ####[facility] Ewmmpingxf64[address] [place], [place] [address]Dr. Farhat Leal Eosinophils/100 WBC (Bld) 1.0 % Normal 0.9-7.0 [facility] Comment on above: Performed By: #### C BC ####[facility] Qqpocnfhod6842 [place] [address]Dr. Farhat Leal Erythrocyte distribution width (RBC) [Ratio] 14.0 % Normal 11.0-15.0 [facility] Comment on above: Performed By: #### C BC ####[facility] Xdssptkeyi[address] [place], [place] [address]Dr. Farhat Leal Hematocrit (Bld) [Volume fraction] 27.6 % Critically low 42.0-54.0 [facility] Comment on above: Performed By: #### C BC ####[facility] Vfhvswstxx[address] [place], [place] [address]Dr. Farhat Leal Hemoglobin (Bld) [Mass/Vol] 9.0 g/dL Critically low 14.0-18.0 [facility] Comment on above: Performed By: #### C BC ####[facility] Xozmbzppsd84[address] [place], [place] [address]Dr. Farhat Leal IG # 0.12 10e3/ul Critically high 0.00-0.03 [facility] [place] Comment on above: Performed By: #### C BC ####[facility] Mizhmohzfq5[address] [place], [place] [address]Dr. Farhat Leal IG % 1.0 % Critically high 0.0-0.5 [facility] Comment on above: Performed By: #### C BC ####[facility] Mlykfqxayq[address] [place], [place] [address]Dr. Farhat Leal LYMPH # 1.2 103/ul Normal 1.2-3.8 [facility] Comment on above: Performed By: #### C BC ####[facility] Zjbswsiptt3[address] [place], [place] [address]Dr. Farhat Leal Lymphocytes/100 WBC (Bld) 9.9 % Critically low 20.5-60.0 [facility] Comment on above: Performed By: #### C BC ####[facility] Snqbrsgqht[address] [place], [place] [address]Dr. Farhat Leal MANUAL DIFF REQ NO Normal [facility] Comment on above: Performed By: #### C BC ####[facility] Rnkylzugaj10[address] [place] [id number]. Farhat Elvis MCH (RBC) [Entitic mass] 30.0 pg Normal 25.9-34.0 [facility] Comment on above: Performed By: #### C BC ####[facility] Wzagtbizfm5030 [place] [id number]. Farhat Elvis MCHC (RBC) [Mass/Vol] 32.6 g/dL Normal 29.9-35.2 [facility] Comment on above: Performed By: #### C BC ####[facility] Xvbqclqqkr0119 [place] [address]Dr. Madelynlorri Leal MCV (RBC) [Entitic vol] 92.0 fL Normal 80.0-94.0 [facility] Comment on above: Performed By: #### C BC ####[facility] Iiyxjsdxod20[address] [place], [place] [address]DrSkylar Leal MONO # 1.1 103/ul Critically high 0.3-0.8 [facility] Comment on above: Performed By: #### C BC ####[facility] Nhqhnsickg4826 [place] [address]Dr. Farhat Leal Monocytes/100 WBC (Bld) 9.3 % Normal 1.7-12.0 [facility] Comment on above: Performed By: #### C BC ####[facility] Lysorjfjqv39[address] [place], [place] [address]Dr. Farhat Leal NEUT # 9.3 103/ul Critically high 1.4-6.5 [facility] Comment on above: Performed By: #### C BC ####[facility] T[address]rtfow[address] [place], [place] [address]DrSkylar Leal Neutrophils/100 WBC (Bld) 78.5 % Critically high 43.0-75.0 [facility] Comment on above: Performed By: #### C BC ####[facility] Nbeawzotcl8710 [place] [address]DrSkylar Leal Platelet mean volume (Bld) [Entitic vol] 9.6 fL Normal 9.5-13.5 [facility] Comment on above: Performed By: #### C BC ####[facility] Fmhttapkfb0465 [place], [place] [address]Ds. Farhat Leal PLT 357 103/ul Normal 150-450 [facility] Comment on above: Performed By: #### C BC ####[facility] Paeuprcgyr0738 [place], [place] [address]Gh. Farhat Leal RBC 3.00 106/ul Critically low 4.70-6.10 [facility] Comment on above: Performed By: #### C BC ####[facility] Reyvtmqtyx2583 [place], [place] [address]Zw. Farhat Leal WBC 11.8 103/ul Critically high 4.0-11.0 [facility] Comment on above: Performed By: #### C BC ####[facility] Epolgbjixt3843 [place], [place] [address]Vk. Farhat Leal CRPon 11-28-2021 CRP 20.9 mg/dL Critically high <=1.0 [facility] Comment on above: Performed By: #### C MP, BNP, CRP ####[facility] Gtpdnuenxj4960 [place] [phone]. Farhat Leal CULTURE OTHERon 11-28-2021 CULTURE OTHER Normal [facility] Comment on above: Performed By: #### O THCX ####[facility] Aswirdajzw8157 [place] [phone]. Farhat Leal CULTURE OTHER Normal [facility] Comment on above: Performed By: #### O THCX ####[facility] Xevtldnggc0895 [place], [place] [address]Hm. Farhat Leal PROF 14(COMP METB)on 022 Albumin [Mass/Vol] 1.4 g/dL Critically low 3.4-5.0 [facility] Comment on above: Performed By: #### C MP, BNP, CRP ####[facility] Awiuaegtlv6825 [place] [phone]. Farhat Leal Albumin/Globulin [Mass ratio] 0.4 {ratio} Normal [facility] Comment on above: Performed By: #### C MP, BNP, CRP ####[facility] Leghtrqpvs0391 [place] [address]Dr. Farhat Elvis ALP [Catalytic activity/Vol] 82 U/L Normal 46-116 [facility] Comment on above: Performed By: #### C MP, BNP, CRP ####[facility] Ianhstdpot7411 [place] [address]Dr. Madelynlorri Leal ALT [Catalytic activity/Vol] 20 U/L Normal 16-63 [facility] Comment on above: Performed By: #### C MP, BNP, CRP ####[facility] Bhfbeypsga5[address] [place], [place] [address]Dr. Farhat Leal Anion gap [Moles/Vol] 13.0 mmol/L Normal [facility] Comment on above: Performed By: #### C MP, BNP, CRP ####[facility] Fmfbdusmpj50[address] [place], [place] [address]Dr. Farhat Leal AST [Catalytic activity/Vol] 33 U/L Normal 15-37 [facility] Comment on above: Performed By: #### C MP, BNP, CRP ####[facility] Byauifngzi6836[address] [place], [place] [address]Dr. Farhat Leal Bilirubin [Mass/Vol] 0.7 mg/dL Normal 0.2-1.0 [facility] Comment on above: Performed By: #### C MP, BNP, CRP ####[facility] Tuzfdrbyiz5[address] [place], [place] [address]Dr. Farhat Leal Calcium [Mass/Vol] 8.4 mg/dL Critically low 8.5-10.1 [facility] Comment on above: Performed By: #### C MP, BNP, CRP ####[facility] Lpvpjblsgd[address] [place], [place] [address]Dr. Farhat Leal Chloride [Moles/Vol] 100 mmol/L Normal 98-107 [facility] Comment on above: Performed By: #### C MP, BNP, CRP ####[facility] Xfqqecwtsf65[address] [place], [place] [address]Dr. Farhat Leal CO2 [Moles/Vol] 23.7 mmol/L Normal 21.0-32.0 [facility] Comment on above: Performed By: #### C MP, BNP, CRP ####[facility] Azgtqzndmj5917 [place] [address]Dr. Farhat Leal Creatinine [Mass/Vol] 1.70 mg/dL Critically high 0.70-1.30 [facility] Comment on above: Performed By: #### C MP, BNP, CRP ####[facility] Iezpzajajm7[address] [place], [place] [address]Dr. Farhat Leal EGFR-AF BAHAMIAN 48 mL/min/1.73m2 Critically low >=60 [facility] Comment on above: Performed By: #### C MP, BNP, CRP ####[facility] Dwbcoxomfa007[address] [place], [place] [address]Dr. Farhat Leal EGFR-NON AF BAHAMIAN 39 mL/min/1.73m2 Critically low >=60 [facility] Comment on above: Performed By: #### C MP, BNP, CRP ####[facility] Txcuelfgix497[address] [place], [place] [address]Dr. Farhat Leal Globulin (S) [Mass/Vol] 3.6 g/dL Normal [facility] Comment on above: Performed By: #### C MP, BNP, CRP ####[facility] Mrvimucubs5[address] [place], [place] [address]Dr. Farhat Leal Glucose [Mass/Vol] 232 mg/dL Critically high 74-106 T [facility] Comment on above: Performed By: #### C MP, BNP, CRP ####[facility] Hfcmaftxmj2860 [place] [address]Dr. Farhat Leal Potassium [Moles/Vol] 3.7 mmol/L Normal 3.5-5.1 [facility] Comment on above: Performed By: #### C MP, BNP, CRP ####[facility] Lojkffxcej5[address] [place], [place] [address]Dr. Farhat Leal Protein [Mass/Vol] 5.0 g/dL Critically low 6.4-8.2 [facility] Comment on above: Performed By: #### C MP, BNP, CRP ####[facility] Czlgmkmabv4115 [place] [address]Dr. Farhat Leal Sodium [Moles/Vol] 133 mmol/L Critically low 136-145 [facility] Comment on above: Performed By: #### C MP, BNP, CRP ####[facility] Qsdwrhsook6566 [place] [address]Dr. Farhat Leal Urea nitrogen [Mass/Vol] 52.0 mg/dL Critically high 7.0-18.0 [facility] Comment on above: Performed By: #### C MP, BNP, CRP ####[facility] Togocexovg1652 [place] [address]Dr. Farhat Leal Urea nitrogen/Creatinine [Mass ratio] 30.6 mg/mg Normal [facility] Comment on above: Performed By: #### C MP, BNP, CRP ####[facility] Cgomheuqri1621 [place] [address]Dr. Farhat Leal PROTIMEon 11-28-2021 INR Coag (PPP) [Relative time] 1.29 {INR} Normal [facility] Comment on above: Performed By: #### P T ####[facility] Piemvmtmrv[address] [place], [place] [address]Dr. Farhat Leal INR GUIDELINES SEE BELOW Normal [facility] Comment on above: Result Comment: MALINA RED INR: 2.0 - 3.0 CONDITIONS NOT LISTED BELOW 2.5 - 3.5 FOR PROSTHETIC HEART VALVE REPLACEMENT 2.5 - 3.5 RECURRENT THROMBOSIS Performed By: #### P T ####[facility] Qkjltjlohk4991 [place] [address]Dr. Farhat Leal PT Coag (PPP) [Time] 13.7 s Critically high 9.0-11.6 [facility] Comment on above: Performed By: #### P T ####[facility] Mmvexixoxh5757 [place] [address]Dr. Farhat Leal [facility] RATE 77 mm/hr Critically high <=20 [facility] Comment on above: Performed By: #### S EDR ####[facility] Wjxmshlwjs8140 [place] [address]Dr. Farhat Leal XR CHEST 2 Von 11-28-2021 XR CHEST 2 V Normal [facility] BNPon 11-27-2021 Natriuretic peptide B (Bld) [Mass/Vol] 32114.0 pg/mL Critically high <=1,800.0 [facility] Comment on above: Performed By: #### B APPLICATIONS MANAGER, CMP, CRP ####[facility] Rankkmttmf[address] [place], [place] [address]Dr. Farhat Elvis CBC AUTO DIFFon 11-27-2021 BASO # 0.0 103/ul Normal 0.0-0.1 [facility] Comment on above: Performed By: #### C BC ####[facility] Oofozerzye[address] [place], [place] [address]Dr. Madelynlorri Leal Basophils/100 WBC (Bld) 0.2 % Normal 0.2-2.0 [facility] Comment on above: Performed By: #### C BC ####[facility] Qqlfpzeaca[address] [place], [place] [address]Dr. Farhat Leal EO # 0.2 103/ul Normal 0.0-0.7 [facility] Comment on above: Performed By: #### C BC ####[facility] Mcnzbwzacu7[address] [place], [place] [address]Dr. Farhat Elvis Eosinophils/100 WBC (Bld) 1.9 % Normal 0.9-7.0 [facility] Comment on above: Performed By: #### C BC ####[facility] [facility] [address]kxuthcuas[address] [place], [place] [address]Dr. Farhat Leal Erythrocyte distribution width (RBC) [Ratio] 13.9 % Normal 11.0-15.0 [facility] Comment on above: Performed By: #### C BC ####[facility] Xbntszddjb[address] [place], [place] [address]Dr. Madelynlorri Elvis Hematocrit (Bld) [Volume fraction] 28.7 % Critically low 42.0-54.0 [facility] Comment on above: Performed By: #### C BC ####[facility] Baxjfpwpaa45[address] [place] [id number]. Farhat Leal Hemoglobin (Bld) [Mass/Vol] 9.3 g/dL Critically low 14.0-18.0 [facility] Comment on above: Performed By: #### C BC ####[facility] Jdoocyjhga2250 [place] [id number]. Farhat Leal IG # 0.14 10e3/ul Critically high 0.00-0.03 [facility] Comment on above: Performed By: #### C BC ####[facility] Gpgwjcmqcd4506 [place] [id number]. Farhat Leal IG % 1.2 % Critically high 0.0-0.5 The [facility] Comment on above: Performed By: #### C BC ####[facility] Nsumhvtjts[address] [place], [place] [address]Dr. Farhat Leal LYMPH # 1.1 103/ul Critically low 1.2-3.8 The [facility] Comment on above: Performed By: #### C BC ####[facility] Qiasqtmfko4278 [place] [id number]. Farhat Leal Lymphocytes/100 WBC (Bld) 9.4 % Critically low 20.5-60.0 [facility] Comment on above: Performed By: #### C BC ####[facility] Accptgvciz7734 [place] [id number]. Farhat Leal MANUAL DIFF REQ NO Normal The [facility] Comment on above: Performed By: #### C BC ####[facility] Duoveinamn[address] [place], [place] [id number]. Farhat Leal MCH (RBC) [Entitic mass] 29.7 pg Normal 25.9-34.0 [facility] Comment on above: Performed By: #### C BC ####[facility] Rdhdwbvwfc3994 [place] [phone]. Farhat Leal MCHC (RBC) [Mass/Vol] 32.4 g/dL Normal 29.9-35.2 [facility] Comment on above: Performed By: #### C BC ####[facility] Scoqayytdy5254 [place] [phone]. Farhat Leal MCV (RBC) [Entitic vol] 91.7 fL Normal 80.0-94.0 [facility] Comment on above: Performed By: #### C BC ####[facility] Dmuvgepxhv2484 [place] [id number]. Farhat Leal MONO # 1.1 103/ul Critically high 0.3-0.8 The [facility] Comment on above: Performed By: #### C BC ####[facility] Tksshojpxd0615 [place] [phone]. Farhat Leal Monocytes/100 WBC (Bld) 9.7 % Normal 1.7-12.0 [facility] Comment on above: Performed By: #### C BC ####[facility] Ftcnjtgvnf[address] [place], [place] [address]Dr. Farhat Leal NEUT # 9.2 103/ul Critically high 1.4-6.5 The [facility] Comment on above: Performed By: #### C BC ####[facility] Bcwoxyacvo23[address] [place], [place] [address]Dr. Farhat Leal Neutrophils/100 WBC (Bld) 77.6 % Critically high 43.0-75.0 [facility] Comment on above: Performed By: #### C BC ####[facility] Cekarfaocv[address] [place], [place] [address]Dr. Farhat Leal Platelet mean volume (Bld) [Entitic vol] 9.5 fL Normal 9.5-13.5 [facility] Comment on above: Performed By: #### C BC ####[facility] Gzxqkltjso2730 [place] [phone]. Farhat Leal PLT 375 103/ul Normal 150-450 [facility] Comment on above: Performed By: #### C BC ####[facility] Uwlmdilgoe8760 [place] [phone]. Farhat Leal RBC 3.13 106/ul Critically low 4.70-6.10 The [facility] Comment on above: Performed By: #### C BC ####[facility] Sxrdffkjwe5406 [place] [phone]. Farhat Leal WBC 11.8 103/ul Critically high 4.0-11.0 [facility] Comment on above: Performed By: #### C BC ####[facility] Saxvgduuzh6578 [place] [phone]. Farhat Leal CRPon 11-27-2021 CRP 24.5 mg/dL Critically high <=1.0 [facility] Comment on above: Performed By: #### B APPLICATIONS MANAGER, CMP, CRP ####[facility] Vycgtrbpev9339 [place] [phone]. Madelynlorri Leal CULTURE OTHERon 11-27-2021 CULTURE OTHER Normal [facility] Comment on above: Performed By: #### O THCX ####[facility] Fqcqrxwnkf23[address] [place] [address]Dr. Madelynlorri Leal CULTURE OTHER Normal [facility] Comment on above: Performed By: #### O THCX ####[facility] Gtplohaebu[address] [place], [place] [address]Dr. Farhat Leal CULTURE WOUNDon 11-27-2021 CULTURE WOUND Normal [facility] Comment on above: Performed By: #### W OUNDCX ####[facility] Dfkuwhjrei9023 [place] [phone]. Farhat Leal POINT OF CARE GLUCOSEon 11-15 Glucose [Mass/Vol] 147 mg/dL Critically high 74-106 T [facility] Comment on above: Performed By: #### P OCGLUC ####[facility] Auayxacklo0652 [place] [phone]. Farhat Leal PROF 14(COMP METB)on 022 Albumin [Mass/Vol] 1.4 g/dL Critically low 3.4-5.0 [facility] Comment on above: Performed By: #### B APPLICATIONS MANAGER, CMP, CRP ####[facility] Tzrkqapxgz8579 [place] [phone]. Farhat Leal Albumin/Globulin [Mass ratio] 0.4 {ratio} [facility] Comment on above: Performed By: #### B APPLICATIONS MANAGER, CMP, CRP ####[facility] Tshtoptvmm8938 [place] [address]Dr. Farhat Leal ALP [Catalytic activity/Vol] 82 U/L Normal 46-116 [facility] Comment on above: Performed By: #### B APPLICATIONS MANAGER, CMP, CRP ####[facility] Cotzwwwmyi9145 [place] [address]Dr. Farhat Elvis ALT [Catalytic activity/Vol] 22 U/L Normal 16-63 [facility] Comment on above: Performed By: #### B APPLICATIONS MANAGER, CMP, CRP ####[facility] Ynotiugbur32[address] [place], [place] [address]Dr. Farhat Leal Anion gap [Moles/Vol] 14.2 mmol/L Normal [facility] Comment on above: Performed By: #### B APPLICATIONS MANAGER, CMP, CRP ####[facility] Qzllvvsakb[address] [place], [place] [address]Dr. Farhat Leal AST [Catalytic activity/Vol] 35 U/L Normal 15-37 [facility] Comment on above: Performed By: #### B APPLICATIONS MANAGER, CMP, CRP ####[facility] Pxstbozvqq6[address] [place], [place] [address]Dr. Farhat Leal Bilirubin [Mass/Vol] 0.7 mg/dL Normal 0.2-1.0 [facility] Comment on above: Performed By: #### B APPLICATIONS MANAGER, CMP, CRP ####[facility] Kevkndtqcb32[address] [place], [place] [address]Dr. Farhat Leal Calcium [Mass/Vol] 8.2 mg/dL Critically low 8.5-10.1 [facility] Comment on above: Performed By: #### B APPLICATIONS MANAGER, CMP, CRP ####[facility] Hretpcrvrp[address] [place], [place] [address]Dr. Farhat Leal Chloride [Moles/Vol] 99 mmol/L Normal 98-107 [facility] Comment on above: Performed By: #### B APPLICATIONS MANAGER, CMP, CRP ####[facility] Fakpeignnc18[address] [place], [place] [address]Dr. Farhat Leal CO2 [Moles/Vol] 22.6 mmol/L Normal 21.0-32.0 [facility] Comment on above: Performed By: #### B APPLICATIONS MANAGER, CMP, CRP ####[facility] Vgtondoywr6960 [place] [address]Dr. Farhat Leal Creatinine [Mass/Vol] 1.73 mg/dL Critically high 0.70-1.30 [facility] Comment on above: Performed By: #### B APPLICATIONS MANAGER, CMP, CRP ####[facility] Ztalsfassg7338 [place] [address]Dr. Farhat Elvis EGFR-AF BAHAMIAN 47 mL/min/1.73m2 Critically low >=60 [facility] Comment on above: Performed By: #### B APPLICATIONS MANAGER, CMP, CRP ####[facility] Lnmukpufmu39[address] [place], [place] [address]Dr. Farhat Leal EGFR-NON AF BAHAMIAN 38 mL/min/1.73m2 Critically low >=60 [facility] Comment on above: Performed By: #### B APPLICATIONS MANAGER, CMP, CRP ####[facility] Honwyitufa[address] [place], [place] [address]Dr. Madelynlorri Leal Globulin (S) [Mass/Vol] 3.7 g/dL Normal [facility] Comment on above: Performed By: #### B APPLICATIONS MANAGER, CMP, CRP ####[facility] Dgagqamffu5229 [place] [address]Dr. Madelynlorri Leal Glucose [Mass/Vol] 220 mg/dL Critically high 74-106 T [facility] Comment on above: Performed By: #### B APPLICATIONS MANAGER, CMP, CRP ####[facility] Jnipqthszk2796 [place] [address]Dr. Madelynlorri Leal Potassium [Moles/Vol] 3.8 mmol/L Normal 3.5-5.1 [facility] Comment on above: Performed By: #### B APPLICATIONS MANAGER, CMP, CRP ####[facility] Bhvvxhtszy[address] [place], [place] [address]Dr. Farhat Leal Protein [Mass/Vol] 5.1 g/dL Critically low 6.4-8.2 [facility] Comment on above: Performed By: #### B APPLICATIONS MANAGER, CMP, CRP ####[facility] Xoxnzprxds[address] [place] [address]Dr. Farhat Leal Sodium [Moles/Vol] 132 mmol/L Critically low 136-145 Th e [facility] Comment on above: Performed By: #### B APPLICATIONS MANAGER, CMP, CRP ####[facility] Adkelvxphv0358 [place] [address]Dr. Farhat Leal Urea nitrogen [Mass/Vol] 49.0 mg/dL Critically high 7.0-18.0 [facility] Comment on above: Performed By: #### B APPLICATIONS MANAGER, CMP, CRP ####[facility] Wlatrdyzyn6762 [place] [address]Dr. Farhat Leal Urea nitrogen/Creatinine [Mass ratio] 28.3 mg/mg Normal [facility] Comment on above: Performed By: #### B APPLICATIONS MANAGER, CMP, CRP ####[facility] Vejdidytuu[address] [place], [place] [address]Dr. Farhat Leal PROTIMEon 11-27-2021 INR Coag (PPP) [Relative time] 1.25 {INR} Normal [facility] Comment on above: Performed By: #### P T ####[facility] Qfmehmowdn6[address] [place], [place] [address]Dr. Farhat Leal INR GUIDELINES SEE BELOW Normal [facility] Comment on above: Result Comment: MALINA RED INR: 2.0 - 3.0 CONDITIONS NOT LISTED BELOW 2.5 - 3.5 FOR PROSTHETIC HEART VALVE REPLACEMENT 2.5 - 3.5 RECURRENT THROMBOSIS Performed By: #### P T ####[facility] Skehtdpske88[address] [place] [address]Dr. Farhat Leal PT Coag (PPP) [Time] 13.3 s Critically high 9.0-11.6 [facility] Comment on above: Performed By: #### P T ####[facility] Bpzkixutyt2211 [place] [address]Dr. Farhat Leal SED RATE WESTERGREN 2021 SED RATE 60 mm/hr Critically high <=20 [facility] Comment on above: Performed By: #### S EDR ####[facility] Khtauavwkt5572 [place] [address]Dr. Farhat Leal VANCOMYCIN TROUGHon 11-28-19 VANCOMYCIN TROUGH 21.2 ug/ml Critically high 5.0-20.0 Th [facility] Comment on above: Performed By: #### V ANCT ####[facility] Nlbvkrtyvk[address] [place], [place] [address]Dr. Farhat Leal XR CHEST 1 Von 11-27-2021 XR CHEST 1 V Normal [facility] BNPon 11-26-2021 Natriuretic peptide B (Bld) [Mass/Vol] 68965.0 pg/mL Critically high <=1,800.0 [facility] Comment on above: Performed By: #### B APPLICATIONS MANAGER, CRP, CMP ####[facility] Xnapgouajh[address] [place], [place] [address]Dr. Farhat Elvis CBC AUTO DIFFon 11-26-2021 BASO # 0.0 103/ul Normal 0.0-0.1 [facility] Comment on above: Performed By: #### C BC ####[facility] Oqhmonwypg[address] [place], [place] [address]Dr. Madelynlorri Leal Basophils/100 WBC (Bld) 0.2 % Normal 0.2-2.0 [facility] Comment on above: Performed By: #### C BC ####[facility] Tuxbezdlxd67[address] [place], [place] [address]Dr. Farhat Leal EO # 0.0 103/ul Normal 0.0-0.7 [facility] Comment on above: Performed By: #### C BC ####[facility] Yxefzwnhcx[address] [place], [place] [address]Dr. Farhat Leal Eosinophils/100 WBC (Bld) 0.3 % Critically low 0.9-7.0 [facility] Comment on above: Performed By: #### C BC ####[facility] Ddwmvrkkhf[address] [place], [place] [address]Dr. Farhat Leal Erythrocyte distribution width (RBC) [Ratio] 13.9 % Normal 11.0-15.0 [facility] Comment on above: Performed By: #### C BC ####[facility] Wdilffjfxy4736 [place] [address]Dr. Farhat Leal Hematocrit (Bld) [Volume fraction] 27.3 % Critically low 42.0-54.0 [facility] Comment on above: Performed By: #### C BC ####[facility] Zyukskpnwz2595 [place] [address]Dr. Farhat Leal Hemoglobin (Bld) [Mass/Vol] 8.8 g/dL Critically low 14.0-18.0 [facility] Comment on above: Performed By: #### C BC ####[facility] Gbnjhifuxa5748 [place] [address]Dr. Farhat Leal IG # 0.17 10e3/ul Critically high 0.00-0.03 [facility] Comment on above: Performed By: #### C BC ####[facility] Rgdmhgvkjz1058 [place] [address]Dr. Farhat Leal IG % 1.2 % Critically high 0.0-0.5 [facility] Comment on above: Performed By: #### C BC ####[facility] Vvbzlyqfgq8601 [place] [address]Dr. Farhat Elvis LYMPH # 0.7 103/ul Critically low 1.2-3.8 [facility] Comment on above: Performed By: #### C BC ####[facility] Lohzrfbhfz3844 [place] [address]DrSkylar Farhat Elvis Lymphocytes/100 WBC (Bld) 4.8 % Critically low 20.5-60.0 [facility] Comment on above: Performed By: #### C BC ####[facility] Bjgasqumen0197 [place] [address]Dr. Madelynlorri Leal MANUAL DIFF REQ NO Normal [facility] Comment on above: Performed By: #### C BC ####[facility] Tlawwsrbcw5706 [place] [address]DrSkylar Farhat Elvis MCH (RBC) [Entitic mass] 29.9 pg Normal 25.9-34.0 [facility] Comment on above: Performed By: #### C BC ####[facility] Nijdwdrrdb9577 [place] [phone]. Farhat Elvis MCHC (RBC) [Mass/Vol] 32.2 g/dL Normal 29.9-35.2 [facility] Comment on above: Performed By: #### C BC ####[facility] Lzftbwzrqj6224 [place] [phone] Leal MCV (RBC) [Entitic vol] 92.9 fL Normal 80.0-94.0 [facility] Comment on above: Performed By: #### C BC ####[facility] Txsoabvpsp6463 [place] [phone] Leal MONO # 1.3 103/ul Critically high 0.3-0.8 The [facility] Comment on above: Performed By: #### C BC ####[facility] Invtkruemq6183 [place] [address]Dr. Farhat Leal Monocytes/100 WBC (Bld) 9.6 % Normal 1.7-12.0 [facility] Comment on above: Performed By: #### C BC ####[facility] T[address]bydstd[address] [place], [place] [address]Dr. Farhat Leal NEUT # 11.4 103/ul Critically high 1.4-6.5 [facility] Comment on above: Performed By: #### C BC ####[facility] Hdewcgsrix2535 [place] [phone] Leal Neutrophils/100 WBC (Bld) 83.9 % Critically high 43.0-75.0 [facility] Comment on above: Performed By: #### C BC ####[facility] Lilclsryko8303 [place] [phone] Leal Platelet mean volume (Bld) [Entitic vol] 9.6 fL Normal 9.5-13.5 [facility] Comment on above: Performed By: #### C BC ####[facility] Cojwglwdwv1085 [place] [phone] Leal PLT 395 103/ul Normal 150-450 [facility] Comment on above: Performed By: #### C BC ####[facility] Lymsusqmjg6279 [place] [address]Dr. Farhat Leal RBC 2.94 106/ul Critically low 4.70-6.10 [facility] Comment on above: Performed By: #### C BC ####[facility] Gvxhaleqqt2607 [place] [address]Dr. Farhta Leal WBC 13.6 103/ul Critically high 4.0-11.0 [facility] Comment on above: Performed By: #### C BC ####[facility] Sytzsynhik3619 [place] [address]Dr. Farhat Leal CRPon 11-26-2021 CRP [Mass/Vol] mg/L Critically high <=1.0 [facility] Comment on above: Performed By: #### B APPLICATIONS MANAGER, CRP, CMP ####[facility] Smcwpktpce2590 [place] [address]Dr. Farhat Leal PROF 14(COMP METB)on 022 Albumin [Mass/Vol] 1.5 g/dL Critically low 3.4-5.0 [facility] Comment on above: Performed By: #### B APPLICATIONS MANAGER, CRP, CMP ####[facility] Zywivbxybs3683 [place] [address]Dr. Farhat Leal Albumin/Globulin [Mass ratio] 0.4 {ratio} Normal [facility] Comment on above: Performed By: #### B APPLICATIONS MANAGER, CRP, CMP ####[facility] Swvfbtlyfm7299 [place] [address]Dr. Farhat Leal ALP [Catalytic activity/Vol] 88 U/L Normal 46-116 [facility] Comment on above: Performed By: #### B APPLICATIONS MANAGER, CRP, CMP ####[facility] Cryvknehml7769 [place] [address]Dr. Farhat Leal ALT [Catalytic activity/Vol] 29 U/L Normal 16-63 [facility] Comment on above: Performed By: #### B APPLICATIONS MANAGER, CRP, CMP ####[facility] Qtlxcpiiqa7893 [place] [address]Dr. Farhat Leal Anion gap [Moles/Vol] 13.3 mmol/L Normal [facility] Comment on above: Performed By: #### B APPLICATIONS MANAGER, CRP, CMP ####[facility] Efcbarkvue4363 [place] [address]Dr. Farhat Leal AST [Catalytic activity/Vol] 32 U/L Normal 15-37 [facility] Comment on above: Performed By: #### B APPLICATIONS MANAGER, CRP, CMP ####[facility] Wadeqdihne3946 [place] [address]Dr. Farhat Leal Bilirubin [Mass/Vol] 0.6 mg/dL Normal 0.2-1.0 [facility] Comment on above: Performed By: #### B APPLICATIONS MANAGER, CRP, CMP ####[facility] Ymnnnauxxy96[address] [place], [place] [address]Dr. Farhat Leal Calcium [Mass/Vol] 8.0 mg/dL Critically low 8.5-10.1 [facility] Comment on above: Performed By: #### B APPLICATIONS MANAGER, CRP, CMP ####[facility] Drnpayzwnq[address] [place], [place] [address]Dr. Farhat Leal Chloride [Moles/Vol] 98 mmol/L Normal 98-107 [facility] Comment on above: Performed By: #### B APPLICATIONS MANAGER, CRP, CMP ####[facility] Ccarbeiapi34[address] [place], [place] [address]Dr. Farhat Leal CO2 [Moles/Vol] 23.7 mmol/L Normal 21.0-32.0 [facility] Comment on above: Performed By: #### B APPLICATIONS MANAGER, CRP, CMP ####[facility] Byfenontxm8201[address] [place], [place] [address]Dr. Farhat Leal Creatinine [Mass/Vol] 2.08 mg/dL Critically high 0.70-1.30 [facility] Comment on above: Performed By: #### B APPLICATIONS MANAGER, CRP, CMP ####[facility] Rdkzcoucxa4436[address] [place], [place] [address]Dr. Farhat Leal EGFR-AF BAHAMIAN 38 mL/min/1.73m2 Critically low >=60 [facility] Comment on above: Performed By: #### B APPLICATIONS MANAGER, CRP, CMP ####[facility] Matzbhansr0367 [place] [address]Dr. Farhat Leal EGFR-NON AF BAHAMIAN 31 mL/min/1.73m2 Critically low >=60 [facility] Comment on above: Performed By: #### B APPLICATIONS MANAGER, CRP, CMP ####[facility] Ongydsxhqv9854 [place] [address]Dr. Farhat Leal Globulin (S) [Mass/Vol] 3.7 g/dL Normal [facility] Comment on above: Performed By: #### B APPLICATIONS MANAGER, CRP, CMP ####[facility] Dynnqwekyp1960 [place] [address]Dr. Farhat Leal Glucose [Mass/Vol] 315 mg/dL Critically high 74-106 T [facility] Comment on above: Performed By: #### B APPLICATIONS MANAGER, CRP, CMP ####[facility] Atayclxocf2716[address] [place], [place] [address]Dr. Madelynlorri Leal Potassium [Moles/Vol] 4.0 mmol/L Normal 3.5-5.1 [facility] Comment on above: Performed By: #### B APPLICATIONS MANAGER, CRP, CMP ####[facility] Nxrkelevsp[address] [place], [place] [address]Dr. Farhat Leal Protein [Mass/Vol] 5.2 g/dL Critically low 6.4-8.2 [facility] Comment on above: Performed By: #### B APPLICATIONS MANAGER, CRP, CMP ####[facility] Adnsrnkdqx048[address] [place], [place] [address]Dr. Farhat Leal Sodium [Moles/Vol] 131 mmol/L Critically low 136-145 [facility] Comment on above: Performed By: #### B APPLICATIONS MANAGER, CRP, CMP ####[facility] Mxbkvmqfpx[address] [place], [place] [address]Dr. Farhat Leal Urea nitrogen [Mass/Vol] 50.0 mg/dL Critically high 7.0-18.0 [facility] Comment on above: Performed By: #### B APPLICATIONS MANAGER, CRP, CMP ####[facility] Wmixtdumny34[address] [place], [place] [address]Dr. Farhat Leal Urea nitrogen/Creatinine [Mass ratio] 24.0 mg/mg Normal [facility] Comment on above: Performed By: #### B APPLICATIONS MANAGER, CRP, CMP ####[facility] Tashwwamzw8304 [place] [address]Dr. Farhat Leal PROTIMEon 11-26-2021 INR Coag (PPP) [Relative time] 1.31 {INR} Normal [facility] Comment on above: Performed By: #### P T ####[facility] Bctsqehjev[address] [place], [place] [address]Dr. Farhat Leal INR GUIDELINES SEE BELOW Normal [facility] Comment on above: Result Comment: MALINA RED INR: 2.0 - 3.0 CONDITIONS NOT LISTED BELOW 2.5 - 3.5 FOR PROSTHETIC HEART VALVE REPLACEMENT 2.5 - 3.5 RECURRENT THROMBOSIS Performed By: #### P T ####[facility] [address] [place] [address]. Farhat Leal PT Coag (PPP) [Time] 13.9 s Critically high 9.0-11.6 [facility] Comment on above: Performed By: #### P T ####[facility] Octcvbwslw[address] [place] [address]. Farhat Leal SED RATE MIDDLETONERGRENon 2021 SED RATE 87 mm/hr Critically high <=20 [facility] Comment on above: Performed By: #### S EDR ####[facility] Ojpvvexacj[address] [place], [place] [address]Dr. Farhat Leal BNPon 11-25-2021 Natriuretic peptide B (Bld) [Mass/Vol] 44377.0 pg/mL Critically high <=1,800.0 [facility] Comment on above: Performed By: #### C MP, BNP, CRP ####[facility] [address]rs[address] [place] [address]. Farhat Leal CBC AUTO DIFFon 11-25-2021 BASO # 0.0 103/ul Normal 0.0-0.1 [facility] Comment on above: Performed By: #### C BC ####[facility] Qtponyhlfr7916 [place] [id number]. Farhat Leal Basophils/100 WBC (Bld) 0.4 % Normal 0.2-2.0 [facility] Comment on above: Performed By: #### C BC ####[facility] Srcuevyykb0385 [place] [id number]. Farhat Leal EO # 0.1 103/ul Normal 0.0-0.7 [facility] Comment on above: Performed By: #### C BC ####[facility] Lcmgosbxkl5501 [place] [phone]. Farhat Leal Eosinophils/100 WBC (Bld) 1.2 % Normal 0.9-7.0 [facility] Comment on above: Performed By: #### C BC ####[facility] Dzjzikhkev3659 [place] [phone]. Farhat Leal Erythrocyte distribution width (RBC) [Ratio] 13.7 % Normal 11.0-15.0 [facility] Comment on above: Performed By: #### C BC ####[facility] Mpnoxcqrbi8815 [place] [phone]. Farhat Leal Hematocrit (Bld) [Volume fraction] 29.6 % Critically low 42.0-54.0 [facility] Comment on above: Performed By: #### C BC ####[facility] Blxnsptzzh4673 [place] [phone]. Farhat Leal Hemoglobin (Bld) [Mass/Vol] 9.3 g/dL Critically low 14.0-18.0 [facility] Comment on above: Performed By: #### C BC ####[facility] Wxpbjcuxkb8364 [place] [phone]. Farhat Leal IG # 0.15 10e3/ul Critically high 0.00-0.03 [facility] Comment on above: Performed By: #### C BC ####[facility] Gunvnqqmlx[address] [place] [id number]. Farhat Leal IG % 1.4 % Critically high 0.0-0.5 The [facility] Comment on above: Performed By: #### C BC ####[facility] Obahqphxfk0194 [place], [place] [address]Zm. Farhat Leal LYMPH # 0.8 103/ul Critically low 1.2-3.8 The [facility] Comment on above: Performed By: #### C BC ####[facility] Ehmkyoutqs9768 [place], [place] [address]Ld. Farhat Leal Lymphocytes/100 WBC (Bld) 7.3 % Critically low 20.5-60.0 The [facility] Comment on above: Performed By: #### C BC ####[facility] Wjsbaatdmj4680 [place] [id number]. Madelynlorri Leal MANUAL DIFF REQ NO Normal The [facility] Comment on above: Performed By: #### C BC ####[facility] Zmqklcplvc2610 [place] [id number]. Farhat Elvis MCH (RBC) [Entitic mass] 29.3 pg Normal 25.9-34.0 The [facility] Comment on above: Performed By: #### C BC ####[facility] Oyokibaaor04[address] [place] [id number]. Farhat Leal MCHC (RBC) [Mass/Vol] 31.4 g/dL Normal 29.9-35.2 [facility] Comment on above: Performed By: #### C BC ####[facility] Ulhzceegqu5639 [place] [id number]. Madelynlorri Elvis MCV (RBC) [Entitic vol] 93.4 fL Normal 80.0-94.0 The [facility] Comment on above: Performed By: #### C BC ####[facility] Zbqpnkoysp1604 [place] [id number]. Farhat Leal MONO # 1.3 103/ul Critically high 0.3-0.8 The [facility] Comment on above: Performed By: #### C BC ####[facility] Caymkhstlu3[address] [place] [id number]. Farhat Elvis Monocytes/100 WBC (Bld) 12.3 % Critically high 1.7-12.0 [facility] Comment on above: Performed By: #### C BC ####[facility] Jobguzyqjd5078 [place] [id number]. Farhat Leal NEUT # 8.4 103/ul Critically high 1.4-6.5 The [facility] Comment on above: Performed By: #### C BC ####[facility] Vlrargebxm9918 [place] [id number]. Farhat Leal Neutrophils/100 WBC (Bld) 77.4 % Critically high 43.0-75.0 The [facility] Comment on above: Performed By: #### C BC ####[facility] Mtyrfeckac2256 [place] [address]Dr. Farhat Leal Platelet mean volume (Bld) [Entitic vol] 9.8 fL Normal 9.5-13.5 The [facility] Comment on above: Performed By: #### C BC ####[facility] Ligwbvimyz4306 [place] [address]Dr. Farhat Leal PLT 390 103/ul Normal 150-450 The [facility] Comment on above: Performed By: #### C BC ####[facility] Okkuemeppy4162 [place] [phone]. Farhat Leal RBC 3.17 106/ul Critically low 4.70-6.10 The [facility] Comment on above: Performed By: #### C BC ####[facility] Efsfujifiq3511 [place] [id number]. Farhat Leal WBC 10.9 103/ul Normal 4.0-11.0 The [facility] Comment on above: Performed By: #### C BC ####[facility] Cmxsnaqbyn8537 [place] [phone]. Farhat Leal CRPon 11-25-2021 CRP 27.2 mg/dL Critically high <=1.0 The [facility] Comment on above: Performed By: #### C MP, BNP, CRP ####[facility] Kwwyijiiqa4494 [place] [address]Dr. Farhat Leal PROF 14(COMP METB)on 022 Albumin [Mass/Vol] 1.5 g/dL Critically low 3.4-5.0 [facility] Comment on above: Performed By: #### C MP, BNP, CRP ####[facility] Lwisviqctf9524 [place] [address]Dr. Farhat Leal Albumin/Globulin [Mass ratio] 0.4 {ratio} Normal [facility] Comment on above: Performed By: #### C MP, BNP, CRP ####[facility] Xjxexeemxh3369 [place] [address]Dr. Farhat Leal ALP [Catalytic activity/Vol] 86 U/L Normal 46-116 [facility] Comment on above: Performed By: #### C MP, BNP, CRP ####[facility] Hpiimxuerr8[address] [place], [place] [address]Dr. Farhat Leal ALT [Catalytic activity/Vol] 34 U/L Normal 16-63 [facility] Comment on above: Performed By: #### C MP, BNP, CRP ####[facility] Oozfirctwh[address] [place], [place] [address]Dr. Farhat Leal Anion gap [Moles/Vol] 17.8 mmol/L Normal [facility] Comment on above: Performed By: #### C MP, BNP, CRP ####[facility] Ngqqvjneoq3[address] [place], [place] [address]Dr. Farhat Leal AST [Catalytic activity/Vol] 48 U/L Critically high 15-37 [facility] Comment on above: Performed By: #### C MP, BNP, CRP ####[facility] Ubcuytyhri[address] [place], [place] [address]Dr. Farhat Leal Bilirubin [Mass/Vol] 0.8 mg/dL Normal 0.2-1.0 [facility] Comment on above: Performed By: #### C MP, BNP, CRP ####[facility] Klveuooqhb697[address] [place], [place] [address]Dr. Farhat Leal Calcium [Mass/Vol] 8.3 mg/dL Critically low 8.5-10.1 [facility] Comment on above: Performed By: #### C MP, BNP, CRP ####[facility] Cfosfvdftk3[address] [place], [place] [address]Dr. Farhat Leal Chloride [Moles/Vol] 97 mmol/L Critically low 98-107 The [facility] Comment on above: Performed By: #### C MP, BNP, CRP ####[facility] Faqssetfgi0531 [place] [address]Dr. Farhat Leal CO2 [Moles/Vol] 23.0 mmol/L Normal 21.0-32.0 The [facility] Comment on above: Performed By: #### C MP, BNP, CRP ####[facility] Plcxhewcvt4794 [place] [address]Dr. Farhat Leal Creatinine [Mass/Vol] 1.68 mg/dL Critically high 0.70-1.30 The [facility] Comment on above: Performed By: #### C MP, BNP, CRP ####[facility] Iwtaegkrqi3[address] [place], [place] [address]Dr. Madelynlorri Elvis EGFR-AF BAHAMIAN 48 mL/min/1.73m2 Critically low >=60 [facility] Comment on above: Performed By: #### C MP, BNP, CRP ####[facility] Umvgnzwcry[address] [place], [place] [address]Dr. Farhat Leal EGFR-NON AF BAHAMIAN 40 mL/min/1.73m2 Critically low >=60 [facility] Comment on above: Performed By: #### C MP, BNP, CRP ####[facility] Swaqxpdwep2639 [place] [address]Dr. Madelynlorri Leal Globulin (S) [Mass/Vol] 3.9 g/dL Normal [facility] Comment on above: Performed By: #### C MP, BNP, CRP ####[facility] Wcnqpebtyy2139 [place] [address]Dr. Madelynlorri Leal Glucose [Mass/Vol] 282 mg/dL Critically high 74-106 [facility] Comment on above: Performed By: #### C MP, BNP, CRP ####[facility] Ppdtugcqyj9477 [place] [address]Dr. Farhat Leal Potassium [Moles/Vol] 4.8 mmol/L Normal 3.5-5.1 [facility] Comment on above: Performed By: #### C MP, BNP, CRP ####[facility] Xrwuqncwqs7566 [place] [address]Dr. Farhat Leal Protein [Mass/Vol] 5.4 g/dL Critically low 6.4-8.2 [facility] Comment on above: Performed By: #### C MP, BNP, CRP ####[facility] Ucyuwtzplb7035 [place] [address]Dr. Farhat Leal Sodium [Moles/Vol] 133 mmol/L Critically low 136-145 [facility] Comment on above: Performed By: #### C MP, BNP, CRP ####[facility] Ldzmceunoj92[address] [place], [place] [address]Dr. Farhat Leal Urea nitrogen [Mass/Vol] 40.0 mg/dL Critically high 7.0-18.0 [facility] Comment on above: Performed By: #### C MP, BNP, CRP ####[facility] Rtfyuprstx234[address] [place], [place] [address]Dr. Farhat Leal Urea nitrogen/Creatinine [Mass ratio] 23.8 mg/mg Normal [facility] Comment on above: Performed By: #### C MP, BNP, CRP ####[facility] Stvhvqotcv35[address] [place], [place] [address]Dr. Farhat Leal PROTIMEon 11-25-2021 INR Coag (PPP) [Relative time] 1.48 {INR} Normal [facility] Comment on above: Performed By: #### P T ####[facility] Nkpdagajod[address] [place], [place] [address]Dr. Farhat Leal INR GUIDELINES SEE BELOW Normal [facility] Comment on above: Result Comment: MALINA RED INR: 2.0 - 3.0 CONDITIONS NOT LISTED BELOW 2.5 - 3.5 FOR PROSTHETIC HEART VALVE REPLACEMENT 2.5 - 3.5 RECURRENT THROMBOSIS Performed By: #### P T ####[facility] Kdmmvlejks[address] [place], [place] [address]Dr. Farhat Leal PT Coag (PPP) [Time] 15.6 s Critically high 9.0-11.6 [facility] Comment on above: Performed By: #### P T ####[facility] Dzslbqnlol[address] [place], [place] [address]Dr. Farhat Leal SED RATE WESTERGRENon 2021 SED RATE 76 mm/hr Critically high <=20 The [facility] Comment on above: Performed By: #### S EDR ####[facility] Fvdfmmobho19[address] [place], [place] [address]Dr. Farhat Leal BNPon 11-24-2021 Natriuretic peptide B (Bld) [Mass/Vol] 15055.0 pg/mL Critically high <=1,800.0 The [facility] Comment on above: Performed By: #### B APPLICATIONS MANAGER, CMP, CRP ####[facility] Vadrfmupvn[address] [place], [place] [address]Dr. Farhat Leal CBC AUTO DIFFon 11-24-2021 BASO # 0.0 103/ul Normal 0.0-0.1 [facility] Comment on above: Performed By: #### C BC ####[facility] Oftxcsaydy[address] [place], [place] [address]Dr. Farhat Leal Basophils/100 WBC (Bld) 0.3 % Normal 0.2-2.0 The [facility] Comment on above: Performed By: #### C BC ####[facility] Vbvsvmqfer[address] [place], [place] [address]Dr. Farhat Leal EO # 0.2 103/ul Normal 0.0-0.7 [facility] Comment on above: Performed By: #### C BC ####[facility] Eienprzgce8[address] [place], [place] [address]Dr. Farhat Leal Eosinophils/100 WBC (Bld) 1.2 % Normal 0.9-7.0 [facility] Comment on above: Performed By: #### C BC ####[facility] Mmrlywibev[address] [place], [place] [address]Dr. Farhat Leal Erythrocyte distribution width (RBC) [Ratio] 13.5 % Normal 11.0-15.0 [facility] Comment on above: Performed By: #### C BC ####[facility] Nmebhvbdiy[address] [place], [place] [id number]. Farhat Leal Hematocrit (Bld) [Volume fraction] 31.1 % Critically low 42.0-54.0 [facility] Comment on above: Performed By: #### C BC ####[facility] Cycmaxpwag8468 [place] [address]Dr. Farhat Leal Hemoglobin (Bld) [Mass/Vol] 10.0 g/dL Critically low 14.0-18.0 [facility] Comment on above: Performed By: #### C BC ####[facility] Kikperrmio7365 [place] [address]Dr. Madelynlorri Elvis IG # 0.13 10e3/ul Critically high 0.00-0.03 [facility] [place] Comment on above: Performed By: #### C BC ####[facility] Kzxcrkatec3620 [place] [address]Dr. Farhat Leal IG % 1.0 % Critically high 0.0-0.5 The [facility] Comment on above: Performed By: #### C BC ####[facility] Hfbdrjvnwm5398 [place] [address]Dr. Farhat Leal LYMPH # 0.7 103/ul Critically low 1.2-3.8 [facility] Comment on above: Performed By: #### C BC ####[facility] Hjgtoaysfm9892 [place] [address]Dr. Madelynlorri Leal Lymphocytes/100 WBC (Bld) 4.9 % Critically low 20.5-60.0 [facility] Comment on above: Performed By: #### C BC ####[facility] Zfrnjyrsiy9020 [place] [address]Dr. Madelynlorri Leal MANUAL DIFF REQ NO Normal The [facility] Comment on above: Performed By: #### C BC ####[facility] Amtgkuxepo[address] [place], [place] [address]Dr. Farhat Elvis MCH (RBC) [Entitic mass] 29.6 pg Normal 25.9-34.0 [facility] Comment on above: Performed By: #### C BC ####[facility] Zpyhiqwjvw[address] [place], [place] [id number]. Farhat Leal MCHC (RBC) [Mass/Vol] 32.2 g/dL Normal 29.9-35.2 [facility] Comment on above: Performed By: #### C BC ####[facility] Bppjhhwnow6924 [place] [id number]. Farhat Leal MCV (RBC) [Entitic vol] 92.0 fL Normal 80.0-94.0 [facility] Comment on above: Performed By: #### C BC ####[facility] Xftjluwfpd9144 [place] [id number]. Farhat Leal MONO # 1.3 103/ul Critically high 0.3-0.8 The [facility] Comment on above: Performed By: #### C BC ####[facility] Ircorofdjm3622 [place] [id number]. Madelynlorri Leal Monocytes/100 WBC (Bld) 9.6 % Normal 1.7-12.0 [facility] Comment on above: Performed By: #### C BC ####[facility] Fazefdeqzf[address] [place], [place] [address]Dr. Farhat Leal NEUT # 11.2 103/ul Critically high 1.4-6.5 The [facility] Comment on above: Performed By: #### C BC ####[facility] Xfcwiygwgr4190 [place] [phone]. Farhat Elvis Neutrophils/100 WBC (Bld) 83.0 % Critically high 43.0-75.0 [facility] Comment on above: Performed By: #### C BC ####[facility] Yurjditold3016 [place] [phone]. Farhat Leal Platelet mean volume (Bld) [Entitic vol] 9.5 fL Normal 9.5-13.5 [facility] Comment on above: Performed By: #### C BC ####[facility] Aossgabclw7561 [place] [phone]. Farhat Elvis PLT 395 103/ul Normal 150-450 [facility] Comment on above: Performed By: #### C BC ####[facility] Oxwkpohkle1683 [place], [place] [address]Zm. Farhat Leal RBC 3.38 106/ul Critically low 4.70-6.10 The [facility] Comment on above: Performed By: #### C BC ####[facility] Lbhwlzgibv2718 [place], [place] [address]Vu. Farhat Leal WBC 13.4 103/ul Critically high 4.0-11.0 The [facility] Comment on above: Performed By: #### C BC ####[facility] Kxzajshuhd9219 [place] [phone]. Farhat Leal CRPon 11-24-2021 CRP 27.8 mg/dL Critically high <=1.0 The [facility] Comment on above: Performed By: #### B APPLICATIONS MANAGER, CMP, CRP ####[facility] Atlbagixny4654 [place] [phone]. Farhat Leal CULTURE ANAEROBICon 11-25-19 22 CULTURE ANAEROBIC Culture Observations : NO GROWTH OF ANAEROBES AT 72 HOURS. [facility] Comment on above: Performed By: #### A NACX ####[facility] Omxcecymxv1935 [place] [phone]. Yilorri Leal CULTURE ANAEROBIC Culture Observations : NO GROWTH OF ANAEROBES AT 72 HOURS. [facility] Comment on above: Performed By: #### A NACX ####[facility] Xmgtjsdlwb0750 [place] [phone]. Yilorri Leal CULTURE ANAEROBIC Culture Observations : No growth of anaerobes at 72 hours. [facility] Comment on above: Performed By: #### A NACX ####[facility] Fclabqzmqc7994 [place] [phone]. Yilan Leal CULTURE ANAEROBIC Culture Observations : No growth of anaerobes at 72 hours. [facility] Comment on above: Performed By: #### A NACX ####[facility] Eheslntwdk6709 [place] [phone]. Farhat Leal CULTURE URINEon 11-24-2021 CULTURE URINE Culture Observations : NO GROWTH. [facility] Comment on above: Performed By: #### U RCX ####[facility] Bmduushren9[address] [place], [place] [address]Dr. Farhat Leal ECHOCARDIO M/2D COMPLETEon 1 ECHOCARDIO M/2D COMPLETE Normal [facility] ER URINE PROFILEon 2 Bilirubin Ql (U) Negative Normal NEGATIVE The [facility] Comment on above: Performed By: #### E RUR ####[facility] Qcjjtnwadg[address] [place], [place] [address]Dr. Madelynlorri Leal Clarity (U) CLEAR Normal CLEAR [facility] Comment on above: Performed By: #### E RUR ####[facility] Imgboysjsk[address] [place], [place] [address]Dr. Madelynlorri Leal Color (U) YELLOW Normal YELLOW [facility] Comment on above: Performed By: #### E RUR ####[facility] Xfsavpmawh[address] [place], [place] [address]Dr. Farhat Leal ERUAHD A micrscopic examination will be performed if indicated. Normal The [facility] Comment on above: Performed By: #### E RUR ####[facility] Bzsaryzjxt45[address] [place], [place] [address]Dr. Madelynlorri Leal Glucose Ql (U) Negative Normal NEGATIVE [facility] Comment on above: Performed By: #### E RUR ####[facility] Krefusqfme2750[address] [place], [place] [address]Dr. Farhat Leal Hemoglobin Ql (U) Negative Normal NEGATIVE The [facility] Comment on above: Performed By: #### E RUR ####[facility] Ergnhwsgpk3310[address] [place], [place] [address]Dr. Farhat Leal Ketones Ql (U) TRACE Abnormal NEGATIVE [facility] Comment on above: Performed By: #### E RUR ####[facility] Trbyrmgjez9967[address] [place], [place] [address]Dr. Farhat Leal LEUKOCYTES Negative Normal NEGATIVE [facility] Comment on above: Performed By: #### E RUR ####[facility] Eqajhuevim3756[address] [place], [place] [address]Dr. Farhat Leal Nitrite Ql (U) Negative Normal NEGATIVE [facility] Comment on above: Performed By: #### E RUR ####[facility] Eiyinjyybn6048[address] [place], [place] [address]Dr. Farhat Leal pH (U) 5.5 [pH] Normal 5-9 [facility] Comment on above: Performed By: #### E RUR ####[facility] Jqbwfxlcfl9[address] [place], [place] [address]Dr. Farhat Leal SPEC GRAVITY 1.015 Normal 1.005-<=1.[address] [place] [address] Comment on above: Performed By: #### E RUR ####[facility] Xnpokzgqzj4[address] [place], [place] [address]Dr. Farhat Leal UA PROTEIN Negative Normal NEGATIVE/ TRACE The [facility] Comment on above: Performed By: #### E RUR ####[facility] Smdwmwnjww[address] [place], [place] [address]Dr. Farhat Leal UR MICRO IND NOT INDICATED Normal The [facility] Comment on above: Performed By: #### E RUR ####[facility] Roudgofqxv2[address] [place], [place] [address]Dr. Farhat Leal Urobilinogen Qn (U) 0.2 {Boyd'U}/dL Normal 0.2 - 1. 0 [facility] Comment on above: Performed By: #### E RUR ####[facility] Lfudxejmuv10[address] [place], [place] [address]Dr. Farhat Leal GRAM STAINon 11-24-2021 DIPHTHEROIDS Normal [facility] Comment on above: Performed By: #### G STAIN ####[facility] Fbyjuhlnyb[address] [place], [place] [address]Dr. Farhat Leal EPITHELIALS Normal [facility] Comment on above: Performed By: #### G STAIN ####[facility] [address]vfuqshzoc[address] [place], [place] [address]Dr. Farhat Leal FUNGAL ELEMENTS Normal The [facility] Comment on above: Performed By: #### G STAIN ####[facility] Bawvqgfnzk[address] [place], [place] [address]Dr. Farhat Leal GRAM NEG BACILLI Normal The [facility] Comment on above: Performed By: #### G STAIN ####[facility] Mzfnnkadtv9958 [place] [address]Dr. Farhat Leal GRAM NEG DIPPLOCOCCI Normal [facility] Comment on above: Performed By: #### G STAIN ####[facility] Avojouhyug29[address] [place] [id number]. Farhat Leal GRAM POS BACILLI Normal The [facility] Comment on above: Performed By: #### G STAIN ####[facility] Acwujwcgew1172 [place] [address]Dr. Farhat Leal GRAM POSITIVE COCCI FEW Normal [facility] Comment on above: Performed By: #### G STAIN ####[facility] Wtaixnnqqp9368 [place] [address]Dr. Farhat Leal GRAM STAIN SOURCE RT ACHILLES TENDON Normal [facility] Comment on above: Performed By: #### G STAIN ####[facility] Elykrdflwx[address] [place], [place] [address]Dr. Farhat Leal GS_DIPTH Normal [facility] Comment on above: Performed By: #### G STAIN ####[facility] Fsgnwwfook69[address] [place] [address]Dr. Farhat Leal WBC RARE Normal [facility] Comment on above: Performed By: #### G STAIN ####[facility] Zfdwqzhznn1334 [place] [address]Dr. Farhat Leal COMMENTS NO ORGANISMS OBSERVED Normal [facility] Comment on above: Performed By: #### G STAIN ####[facility] Kuwldqyeki9044 [place] [address]Dr. Farhat Leal DIPHTHEROIDS Normal [facility] Comment on above: Performed By: #### G STAIN ####[facility] Rcijidjhtg5298 [place] [address]Dr. Farhat Leal EPITHELIALS Normal [facility] Comment on above: Performed By: #### G STAIN ####[facility] Ogvibsdkxx1316 [place] [address]Dr. Farhat Leal FUNGAL ELEMENTS Normal The [facility] Comment on above: Performed By: #### G STAIN ####[facility] Xnaucazrvs90[address] [place] [id number]. Farhat Leal GRAM NEG BACILLI Normal The [facility] Comment on above: Performed By: #### G STAIN ####[facility] Jbyfoyutss7201 [place] [address]Dr. Farhat Leal GRAM NEG DIPPLOCOCCI Normal [facility] Comment on above: Performed By: #### G STAIN ####[facility] Pdbwitixjj5192 [place] [address]Dr. Farhat Leal GRAM POS BACILLI Normal The [facility] Comment on above: Performed By: #### G STAIN ####[facility] Nolhsifzuz5286 [place] [address]Dr. Farhat Leal GRAM POSITIVE COCCI Normal [facility] Comment on above: Performed By: #### G STAIN ####[facility] Erpmqyzjno1468 [place] [address]Dr. Farhat Leal GRAM STAIN SOURCE RT CALCANEOUS Normal [facility] Comment on above: Performed By: #### G STAIN ####[facility] [address]cqbvuidlx[address] [place], [place] [address]Dr. Farhat Leal GS_DIPTH Normal [facility] Comment on above: Performed By: #### G STAIN ####[facility] Tvvtfrayco[address] [place], [place] [address]Dr. Farhat Leal WBC RARE Normal [facility] Comment on above: Performed By: #### G STAIN ####[facility] Bgseussrjd9716 [place] [address]Dr. Farhat Leal DIPHTHEROIDS Normal [facility] Comment on above: Performed By: #### G STAIN ####[facility] Vqlezoztln2200 [place] [address]Dr. Farhat Leal EPITHELIALS Normal [facility] Comment on above: Performed By: #### G STAIN ####[facility] Czdwhdebly8761 [place] [address]Dr. Farhat Leal FUNGAL ELEMENTS Normal The [facility] Comment on above: Performed By: #### G STAIN ####[facility] Olwvdlclse6031 [place] [address]Dr. Farhat Leal GRAM NEG BACILLI FEW Normal The [facility] Comment on above: Performed By: #### G STAIN ####[facility] Pbctewzfor4782 [place] [address]Dr. Farhat Leal GRAM NEG DIPPLOCOCCI Normal [facility] Comment on above: Performed By: #### G STAIN ####[facility] [address]rsqoicmcc[address] [place] [address]Dr. Farhat Lael GRAM POS BACILLI Normal [facility] [place] Comment on above: Performed By: #### G STAIN ####[facility] Odyhdbudfk[address] [place], [place] [address]Dr. Farhat Leal GRAM POSITIVE COCCI FEW Normal [facility] Comment on above: Performed By: #### G STAIN ####[facility] Dreyuwuegt67[address] [place], [place] [address]Dr. Farhat Leal GRAM STAIN SOURCE #2 Rt foot abscess Normal [facility] Comment on above: Performed By: #### G STAIN ####[facility] Masggbknyj6712[address] [place], [place] [address]Dr. Farhat Leal GS_DIPTH Normal [facility] Comment on above: Performed By: #### G STAIN ####[facility] Hwutytkgkh63[address] [place], [place] [address]Dr. Farhat Leal WBC RARE Normal [facility] Comment on above: Performed By: #### G STAIN ####[facility] Ogkuxbmppy7626[address] [place], [place] [address]Dr. Farhat Leal DIPHTHEROIDS Normal [facility] Comment on above: Performed By: #### G STAIN ####[facility] Uqlibskdtp645[address] [place], [place] [address]Dr. Farhat Leal EPITHELIALS Normal [facility] Comment on above: Performed By: #### G STAIN ####[facility] Wppqbidowx1465[address] [place], [place] [address]Dr. Farhat Leal FUNGAL ELEMENTS Normal The [facility] Comment on above: Performed By: #### G STAIN ####[facility] Qvisyptevc8[address] [place], [place] [address]Dr. Farhat Leal GRAM NEG BACILLI FEW Normal [facility] [place] Comment on above: Performed By: #### G STAIN ####[facility] Kdnqaxrczu15[address] [place] [address]Dr. Farhat Leal GRAM NEG DIPPLOCOCCI Normal [facility] Comment on above: Performed By: #### G STAIN ####[facility] Znwklslsbc3123 [place] [address]Dr. Farhat Leal GRAM POS BACILLI Normal [facility] [place] Comment on above: Performed By: #### G STAIN ####[facility] Sealoleiva64[address] [place] [address]Dr. Farhat Leal GRAM POSITIVE COCCI FEW Normal [facility] Comment on above: Performed By: #### G STAIN ####[facility] Jwbhufixhk7[address] [place] [address]Dr. Farhat Leal GRAM STAIN SOURCE #1 Rt foot abscess Normal The [facility] Comment on above: Performed By: #### G STAIN ####[facility] Fryezpnhbv475[address] [place], [place] [address]Dr. Farhat Leal GS_DIPTH Normal [facility] Comment on above: Performed By: #### G STAIN ####[facility] Qxclnpqgjw9827 [place] [address]Dr. Farhat Leal WBC NONE SEEN Normal [facility] Comment on above: Performed By: #### G STAIN ####[facility] Ygwabekugs6899 [place] [address]Dr. Farhat Leal POINT OF CARE GLUCOSEon 11-15 Glucose [Mass/Vol] 331 mg/dL Critically high 74-106 [facility] Comment on above: Performed By: #### P OCGLUC ####[facility] Dgwdxtkngu7718 [place] [address]Dr. Farhat Leal Glucose [Mass/Vol] 236 mg/dL Critically high 74-106 [facility] Comment on above: Performed By: #### P OCGLUC ####[facility] Ytnbqytzlr9129 [place] [address]Dr. Farhat Leal PROF 14(COMP METB)on 022 Albumin [Mass/Vol] 1.6 g/dL Critically low 3.4-5.0 [facility] Comment on above: Performed By: #### B APPLICATIONS MANAGER, CMP, CRP ####[facility] Zjedsqzehv37[address] [place], [place] [address]Dr. Farhat Leal Albumin/Globulin [Mass ratio] 0.4 {ratio} Normal [facility] Comment on above: Performed By: #### B APPLICATIONS MANAGER, CMP, CRP ####[facility] Lgtrusmooo14[address] [place], [place] [address]Dr. Farhat Leal ALP [Catalytic activity/Vol] 94 U/L Normal 46-116 [facility] Comment on above: Performed By: #### B APPLICATIONS MANAGER, CMP, CRP ####[facility] Ljejuetckp7718[address] [place], [place] [address]Dr. Farhat Leal ALT [Catalytic activity/Vol] 49 U/L Normal 16-63 [facility] Comment on above: Performed By: #### B APPLICATIONS MANAGER, CMP, CRP ####[facility] Klvwpfrlcw0109[address] [place], [place] [address]Dr. Farhat Leal Anion gap [Moles/Vol] 12.5 mmol/L Normal [facility] Comment on above: Performed By: #### B APPLICATIONS MANAGER, CMP, CRP ####[facility] Qczttmwzxm034127 [address] [place], [place] [address]Dr. Farhat Leal AST [Catalytic activity/Vol] 102 U/L Critically high 15-37 [facility] Comment on above: Performed By: #### B APPLICATIONS MANAGER, CMP, CRP ####[facility] Latussrjyh668[address] [place], [place] [address]Dr. Farhat Leal Bilirubin [Mass/Vol] 0.8 mg/dL Normal 0.2-1.0 [facility] Comment on above: Performed By: #### B APPLICATIONS MANAGER, CMP, CRP ####[facility] Xuerjlrhgd4605[address] [place], [place] [address]Dr. Farhat Leal Calcium [Mass/Vol] 8.4 mg/dL Critically low 8.5-10.1 [facility] Comment on above: Performed By: #### B APPLICATIONS MANAGER, CMP, CRP ####[facility] Lpejxexhko2525 [place] [address]Dr. Madelynlorri Leal Chloride [Moles/Vol] 96 mmol/L Critically low 98-107 [facility] Comment on above: Performed By: #### B APPLICATIONS MANAGER, CMP, CRP ####[facility] Zgtlvettje865627 [address] [place], [place] [address]Dr. Farhat Leal CO2 [Moles/Vol] 24.8 mmol/L Normal 21.0-32.0 [facility] [place] Comment on above: Performed By: #### B APPLICATIONS MANAGER, CMP, CRP ####[facility] Awxbkgpwxz8346[address] [place], [place] [address]Dr. Madelynlorri Elvis Creatinine [Mass/Vol] 1.36 mg/dL Critically high 0.70-1.30 [facility] Comment on above: Performed By: #### B APPLICATIONS MANAGER, CMP, CRP ####[facility] Hzgurelgqd789427 [address] [place], [place] [address]Dr. Farhat Leal EGFR-AF BAHAMIAN >60 Normal >=60 [facility] Comment on above: Performed By: #### B APPLICATIONS MANAGER, CMP, CRP ####[facility] Ikuwxbxony7466[address] [place], [place] [address]Dr. Madelynlorri Elvis EGFR-NON AF BAHAMIAN 51 mL/min/1.73m2 Critically low >=60 [facility] Comment on above: Performed By: #### B APPLICATIONS MANAGER, CMP, CRP ####[facility] Nrysfibiby560[address] [place], [place] [address]Dr. aFrhat Leal Globulin (S) [Mass/Vol] 4.1 g/dL Normal [facility] Comment on above: Performed By: #### B APPLICATIONS MANAGER, CMP, CRP ####[facility] Aqimebwisg2243 [place] [address]Dr. Farhat Leal Glucose [Mass/Vol] 204 mg/dL Critically high 74-106 [facility] Comment on above: Performed By: #### B APPLICATIONS MANAGER, CMP, CRP ####[facility] Tpbcjeydgy234[address] [place], [place] [address]Dr. Farhat Leal Potassium [Moles/Vol] 4.3 mmol/L Normal 3.5-5.1 [facility] Comment on above: Performed By: #### B APPLICATIONS MANAGER, CMP, CRP ####[facility] Imwwglgcpp1429 [place] [address]Dr. Farhat Leal Protein [Mass/Vol] 5.7 g/dL Critically low 6.4-8.2 [facility] Comment on above: Performed By: #### B APPLICATIONS MANAGER, CMP, CRP ####[facility] Zgbjquiffi7208 [place] [address]Dr. Farhat Leal Sodium [Moles/Vol] 129 mmol/L Critically low 136-145 [facility] Comment on above: Performed By: #### B APPLICATIONS MANAGER, CMP, CRP ####[facility] Jlaswujzie034[address] [place], [place] [address]Dr. Farhat Leal Urea nitrogen [Mass/Vol] 41.0 mg/dL Critically high 7.0-18.0 [facility] Comment on above: Performed By: #### B APPLICATIONS MANAGER, CMP, CRP ####[facility] Cvynlkspyb9094[address] [place], [place] [address]Dr. Farhat Leal Urea nitrogen/Creatinine [Mass ratio] 30.1 mg/mg Normal [facility] Comment on above: Performed By: #### B APPLICATIONS MANAGER, CMP, CRP ####[facility] Ntkleltfdz107[address] [place], [place] [address]Dr. Farhat Leal PROTIMEon 11-24-2021 INR Coag (PPP) [Relative time] 2.20 {INR} Normal [facility] Comment on above: Performed By: #### P T ####[facility] Dnyvfekapy4[address] [place], [place] [address]Dr. Farhat Leal INR GUIDELINES SEE BELOW Normal [facility] Comment on above: Result Comment: MALINA RED INR: 2.0 - 3.0 CONDITIONS NOT LISTED BELOW 2.5 - 3.5 FOR PROSTHETIC HEART VALVE REPLACEMENT 2.5 - 3.5 RECURRENT THROMBOSIS Performed By: #### P T ####[facility] Gggazekoww0818[address] [place], [place] [address]Dr. Farhat Leal PT Coag (PPP) [Time] 22.6 s Critically high 9.0-11.6 [facility] Comment on above: Performed By: #### P T ####[facility] Cl[address]kwtjki[address] [place] [id number]. Farhat Leal [facility] 80 mm/hr Critically high <=20 [facility] Comment on above: Performed By: #### S EDR ####[facility] Dhrgncewpw6294 [place] [id number]. Farhat Leal BLOOD CULTURE ID PANELon A. baumannii Not detected Normal NOT DETECTED The [facility] [place] Comment on above: Performed By: #### B CID2 ####[facility] Bsaolzpmvs[address] [place], [place] [id number]. Farhat Leal Bacteriodes fragilis Not detected Normal NOT DETECTED [facility] Comment on above: Performed By: #### B CID2 ####[facility] Osqnycaoot5628[address] [place], [place] [address]Dr. Farhat Leal BCID CONTROLS PASSED Normal [facility] Comment on above: Performed By: #### B CID2 ####[facility] Oqyoyveaki8337 [place] [address]Dr. Farhat Elvis BCIDBTHD BLOOD CULTURE BOTTLE INFORMATION Normal [facility] Comment on above: Performed By: #### B CID2 ####[facility] Cqovvactyg5813 [place] [id number]. Farhat Leal BCIDHD1 ANTIMICROBIAL RESISTANCE GENES Normal [facility] Comment on above: Performed By: #### B CID2 ####[facility] Iljliryxem5130[address] [place], [place] [address]Dr. Farhat Leal BCIDHD2 SEE BELOW Normal [facility] Comment on above: Result Comment: Note : Antimicrobial resitance can occur via multiple mechanisms. A Not Detected result for the [employer] antomicrobial resistance gene assays does not indicate antimicrobial susceptibility. Subculturing is required for species identification and susceptibility testing of isolates. Performed By: #### B CID2 ####[facility] Deaiqalrci8536[address] [place], [place] [address]Dr. Farhat Leal BCIDHD3 Positive Normal [facility] Comment on above: Performed By: #### B CID2 ####[facility] Mqarrqyixx5034 [place] [address]Dr. Farhat Leal BCIDHD4 Negative Normal [facility] Comment on above: Performed By: #### B CID2 ####[facility] Mfkanwcydo9566 [place] [address]Dr. Farhat Leal BCIDHD5 YEAST Normal [facility] Comment on above: Performed By: #### B CID2 ####[facility] Autmnchihw7234[address] [place], [place] [address]Dr. Farhat Leal Bottle Set: Set 1 Normal [facility] Comment on above: Performed By: #### B CID2 ####[facility] Hsnooaqtyj3847[address] [place], [place] [address]Dr. Farhat Leal Bottle: Aerobic Normal [facility] Comment on above: Performed By: #### B CID2 ####[facility] Kpuucbjxzb256[address] [place], [place] [address]Dr. Farhat Leal C. neoformans/gattii Not detected Normal NOT DETECTED The [facility] Comment on above: Performed By: #### B CID2 ####[facility] Essgvvumax6675[address] [place], [place] [address]Dr. Farhat Leal Disha albicans Not detected Normal NOT DETECTED The [facility] Comment on above: Performed By: #### B CID2 ####[facility] Bjtyfodrre623927 [address] [place], [place] [address]Dr. Yilorri Leal Disha auris Not detected Normal NOT DETECTED The [facility] Comment on above: Performed By: #### B CID2 ####[facility] Hwmossigoi248[address] [place], [place] [address]Dr. Yilorri Leal Disha glabrata Not detected Normal NOT DETECTED The [facility] Comment on above: Performed By: #### B CID2 ####[facility] Nfdpzzwetd432[address] [place], [place] [address]Dr. Yilorri Leal Disha Krusei Not detected Normal NOT DETECTED [facility] Comment on above: Performed By: #### B CID2 ####[facility] Ykhiabrhqx820[address] [place], [place] [address]Dr. Yilorri Leal Disha Parapsilosis Not detected Normal NOT DETECTED The [facility] Comment on above: Performed By: #### B CID2 ####[facility] Cjwbjvvkgv118[address] [place], [place] [address]Dr. Farhat Leal Disha Tropicalis Not detected Normal NOT DETECTED [facility] Comment on above: Performed By: #### B CID2 ####[facility] Tylxmzufim9539[address] [place], [place] [address]Dr. Madelynlorri Leal CTX-M Resistant Gene Not Applicable Normal NOT DETECTE D [facility] Comment on above: Performed By: #### B CID2 ####[facility] Ybvqkxhyag4188[address] [place], [place] [address]Dr. Farhat Leal E. Cloacae complex Not detected Normal NOT DETECTED [facility] Comment on above: Performed By: #### B CID2 ####[facility] Kxmukltkgw217[address] [place], [place] [address]Dr. Farhat Leal E. faecalis Not detected Normal NOT DETECTED The [facility] Comment on above: Performed By: #### B CID2 ####[facility] Fnmccaicqp48112[address] [place], [place] [address]Dr. Farhat Leal E. faecium Not detected Normal NOT DETECTED [facility] Comment on above: Performed By: #### B CID2 ####[facility] Nhzvrylwvd384[address] [place], [place] [address]Dr. Farhat Leal Enterobacteriaceae Not detected Normal NOT DETECTED [facility] Comment on above: Performed By: #### B CID2 ####[facility] Jndizekrwr5509[address] [place], [place] [address]Dr. Farhat Leal Escherichia coli Not detected Normal NOT DETECTED [facility] Comment on above: Performed By: #### B CID2 ####[facility] Umgkpikahy3798[address] [place], [place] [address]Dr. Farhat Leal H. influenzae Not detected Normal NOT DETECTED The [facility] Comment on above: Performed By: #### B CID2 ####[facility] Wnamsdzuyg8099[address] [place], [place] [address]Dr. Madelynlorri Leal IMP Resistant Gene Not Applicable Normal NOT DETECTED [facility] Comment on above: Performed By: #### B CID2 ####[facility] Sbtnvobhqc1348 [place] [address]Dr. Farhat Leal K. oxytoca Not detected Normal NOT DETECTED [facility] Comment on above: Performed By: #### B CID2 ####[facility] Rtmyzfamzh4813 [place] [address]Dr. Farhat Leal K. pneumoniae Not detected Normal NOT DETECTED The [facility] Comment on above: Performed By: #### B CID2 ####[facility] Shnahjpnzb2280[address] [place], [place] [address]Dr. Farhat Leal Klebsiella aerogenes Not detected Normal NOT DETECTED [facility] Comment on above: Performed By: #### B CID2 ####[facility] Giqkgjmubb5929[address] [place], [place] [address]Dr. Farhat Leal KPC Resistant Gene Not Applicable Normal NOT DETECTED The [facility] Comment on above: Performed By: #### B CID2 ####[facility] Lfnpemnoia6408[address] [place], [place] [address]Dr. Farhat Leal List. monocytogenes Not detected Normal NOT DETECTED T [facility] Comment on above: Performed By: #### B CID2 ####[facility] Ypmrlqsqaq100[address] [place], [place] [address]Dr. Farhat Leal Mcr-1 Resistant Gene Not Applicable Normal NOT DETECTE D [facility] Comment on above: Performed By: #### B CID2 ####[facility] Dihhcwnwvr0812[address] [place], [place] [address]Dr. Farhat Leal mecA/C Not Applicable Normal NOT DETECTED The [facility] [place] Comment on above: Performed By: #### B CID2 ####[facility] Xapbhilvpi2676[address] [place], [place] [address]Dr. Farhat Leal mecA/C MREJ Detected Abnormal NOT DETECTED [facility] Comment on above: Performed By: #### B CID2 ####[facility] Zqgrxjoydb0791 [place] [address]Dr. Farhat Leal N. meningitidis Not detected Normal NOT DETECTED [facility] Comment on above: Performed By: #### B CID2 ####[facility] Gzlgngfssh7764[address] [place], [place] [address]Dr. Farhat Leal NDM Resistant Gene Not Applicable Normal NOT DETECTED The [facility] Comment on above: Performed By: #### B CID2 ####[facility] Lyihwkhmnu8360[address] [place], [place] [address]Dr. Farhat Leal Oxa-48-like Not Applicable Normal NOT DETECTED The [facility] Comment on above: Performed By: #### B CID2 ####[facility] Byqljqxajp7034[address] [place], [place] [address]Dr. Farhat Leal Proteus Not detected Normal NOT DETECTED [facility] Comment on above: Performed By: #### B CID2 ####[facility] Qrfsgixdjy8245[address] [place], [place] [address]Dr. Farhat Leal Pseud. aeruginosa Not detected Normal NOT DETECTED The [facility] Comment on above: Performed By: #### B CID2 ####[facility] Kcaohlgfpr982[address] [place], [place] [address]Dr. Farhat Leal S. maltophilia Not detected Normal NOT DETECTED [facility] Comment on above: Performed By: #### B CID2 ####[facility] Tmjgildyfa0216[address] [place], [place] [address]Dr. Farhat Leal Salmonella Not detected Normal NOT DETECTED [facility] Comment on above: Performed By: #### B CID2 ####[facility] Tijgzoxpkj4028[address] [place], [place] [address]Dr. Farhat Leal Seratia marcescens Not detected Normal NOT DETECTED [facility] Comment on above: Performed By: #### B CID2 ####[facility] Slyhhvzanx2157[address] [place], [place] [address]Dr. Farhat Leal Site: Rt Hand Normal [facility] Comment on above: Performed By: #### B CID2 ####[facility] Dlzruuuurr5650[address] [place], [place] [address]Dr. Farhat Leal Staph. aureus Detected Abnormal NOT DETECTED The [facility] Comment on above: Performed By: #### B CID2 ####[facility] Sibixtowhn2974[address] [place], [place] [address]Dr. Farhat Leal Staph. epidermidis Not detected Normal NOT DETECTED [facility] Comment on above: Performed By: #### B CID2 ####[facility] Egreglthpj7918[address] [place], [place] [address]Dr. Farhat Leal Staph. lugdunensis Not detected Normal NOT DETECTED [facility] Comment on above: Performed By: #### B CID2 ####[facility] Mticysklbu9536[address] [place], [place] [address]Dr. Farhat Leal Staphylococcus Detected Abnormal NOT DETECTED The [facility] [place] Comment on above: Performed By: #### B CID2 ####[facility] Qgehvzrjhm4096[address] [place], [place] [address]Dr. Farhat Leal Strep. agalactiae Not detected Normal NOT DETECTED The [facility] Comment on above: Performed By: #### B CID2 ####[facility] Gnfiylvcgp620[address] [place], [place] [address]Dr. Farhat Leal Strep. pneumoniae Not detected Normal NOT DETECTED The [facility] Comment on above: Performed By: #### B CID2 ####[facility] Qqmmsppkif908[address] [place], [place] [address]Dr. Farhat Leal Strep. pyogenes Not detected Normal NOT DETECTED [facility] Comment on above: Performed By: #### B CID2 ####[facility] Lisaatnfbx1484[address] [place], [place] [address]Dr. Farhat Leal Streptococcus Not detected Normal NOT DETECTED The [facility] Comment on above: Performed By: #### B CID2 ####[facility] Iafxfnildo1785[address] [place], [place] [address]Dr. Farhat Leal Teodoro/B Resist. Gene Not Applicable Normal NOT DETECTED The [facility] Comment on above: Performed By: #### B CID2 ####[facility] Bexilnihod1284[address] [place], [place] [address]Dr. Farhat Leal VIM Resistant Gene Not Applicable Normal NOT DETECTED [facility] Comment on above: Performed By: #### B CID2 ####[facility] Lcvwmxzail[address] [place], [place] [address]Dr. Farhat Leal BNPon 11-23-2021 Natriuretic peptide B (Bld) [Mass/Vol] 17413.0 pg/mL Critically high <=1,800.0 [facility] Comment on above: Performed By: #### C MP, CMADM, BNP ####[facility] Ubuusdqttk[address] [place] [id number]. Farhat Leal CARDIAC AMANDA ADMITon 022 CK [Catalytic activity/Vol] 41 U/L Normal 39-308 [facility] Comment on above: Performed By: #### C MP, CMADM, BNP ####[facility] Civitpuwqb30[address] [place] [address]Dr. Farhat Leal CK.MB [Mass/Vol] 0.98 ng/mL Normal <=3.60 [facility] Comment on above: Performed By: #### C MP, CMADM, BNP ####[facility] Jxblaknjkc4[address] [place] [address]Dr. Farhat Leal HSTROP 30.1 pg/mL Normal 4.0-76.1 [facility] Comment on above: Result Comment: CUT- OFF POINTS HAVE BEEN ESTABLISHED BASED ON THE FOURTH UNIVERSAL DEFINITIONS OF MYOCARDIALINFARCTION. THE UPPER REFERENCE LIMIT (URL) OF TROPONIN, DEFINED THE 99TH PERCENTILE OFcTnI DISTRIBUTION IN A REFERENCE POPULATION, HAS BEEN CONFIRMED THE DECISION THRESHOLDFOR [place] DIAGNOSIS. Performed By: #### C MP, CMADM, BNP ####[facility] Dhwtwhdrxr[address] [place] [address]Dr. Farhat Leal VALERIA 160 ng/mL Critically high 16-96 The [facility] Comment on above: Performed By: #### C MP, CMADM, BNP ####[facility] Ryrcnrayjt28[address] [place] [id number]. Farhat Leal CBC AUTO DIFFon 11-23-2021 BASO # 0.0 103/ul Normal 0.0-0.1 [facility] Comment on above: Performed By: #### C BC ####[facility] Ipkrfspvcz7065 [place] [address]Dr. Farhat Leal Basophils/100 WBC (Bld) 0.2 % Normal 0.2-2.0 [facility] Comment on above: Performed By: #### C BC ####[facility] Igyakoqowd4827 [place] [address]Dr. Farhat Leal EO # 0.0 103/ul Normal 0.0-0.7 [facility] Comment on above: Performed By: #### C BC ####[facility] Tpbznwblju3360 [place] [address]Dr. Farhat Elvis Eosinophils/100 WBC (Bld) 0.1 % Critically low 0.9-7.0 [facility] Comment on above: Performed By: #### C BC ####[facility] Lvsdbnuxxh1576 [place] [address]Dr. Farhat Elvis Erythrocyte distribution width (RBC) [Ratio] 13.4 % Normal 11.0-15.0 [facility] Comment on above: Performed By: #### C BC ####[facility] Xxcvalldrw23[address] [place], [place] [address]DrSkylar Madelynlorri Leal Hematocrit (Bld) [Volume fraction] 31.6 % Critically low 42.0-54.0 [facility] Comment on above: Performed By: #### C BC ####[facility] Nuwgcwdxtf7539[address] [address] [place], [place] [address]Dr. Farhat Leal Hemoglobin (Bld) [Mass/Vol] 10.4 g/dL Critically low 14.0-18.0 [facility] Comment on above: Performed By: #### C BC ####[facility] Jgqfjtdcli28[address] [place] [address]Dr. Farhat Leal IG # 0.11 10e3/ul Critically high 0.00-0.03 [facility] Comment on above: Performed By: #### C BC ####[facility] Etmxyxjvcw[address] [place], [place] [address]Dr. Farhat Leal IG % 0.7 % Critically high 0.0-0.5 [facility] Comment on above: Performed By: #### C BC ####[facility] Pknukxbunr[address] [place], [place] [address]DrSkylar Leal LYMPH # 0.5 103/ul Critically low 1.2-3.8 [facility] Comment on above: Performed By: #### C BC ####[facility] Rbdrpvdxke0881 [place] [address]Dr. Farhat Leal Lymphocytes/100 WBC (Bld) 2.8 % Critically low 20.5-60.0 [facility] Comment on above: Performed By: #### C BC ####[facility] Zflotchkpo5009 [place] [address]DrSkylar Leal MANUAL DIFF REQ NO Normal [facility] Comment on above: Performed By: #### C BC ####[facility] Thrhxguhsy7305 [place] [address]Dr. Farhat Leal MCH (RBC) [Entitic mass] 29.8 pg Normal 25.9-34.0 [facility] Comment on above: Performed By: #### C BC ####[facility] Qamngkxdol8035[address] [place], [place] [address]Dr. Farhat Leal MCHC (RBC) [Mass/Vol] 32.9 g/dL Normal 29.9-35.2 [facility] Comment on above: Performed By: #### C BC ####[facility] Skktsgfynh6468[address] [place], [place] [address]DrSkylar Leal MCV (RBC) [Entitic vol] 90.5 fL Normal 80.0-94.0 [facility] Comment on above: Performed By: #### C BC ####[facility] Kmlxhgfsfe989[address] [place], [place] [address]Dr. Farhat Leal MONO # 1.3 103/ul Critically high 0.3-0.8 [facility] Comment on above: Performed By: #### C BC ####[facility] Liitprbxgk6730[address] [place], [place] [address]Dr. Farhat Leal Monocytes/100 WBC (Bld) 8.3 % Normal 1.7-12.0 [facility] Comment on above: Performed By: #### C BC ####[facility] Umbdlkxgcd469[address] [place], [place] [address]Dr. Farhat Leal NEUT # 13.9 103/ul Critically high 1.4-6.5 [facility] Comment on above: Performed By: #### C BC ####[facility] Cphdnxusau0783 [place] [address]Dr. Farhat Leal Neutrophils/100 WBC (Bld) 87.9 % Critically high 43.0-75.0 [facility] Comment on above: Performed By: #### C BC ####[facility] Zyrpeqdkrn6217 [place] [address]Dr. Farhat Leal Platelet mean volume (Bld) [Entitic vol] 9.3 fL Critically low 9.5-13.5 [facility] Comment on above: Performed By: #### C BC ####[facility] Yttkstylom2839 [place] [address]Dr. Farhat Leal PLT 390 103/ul Normal 150-450 [facility] Comment on above: Performed By: #### C BC ####[facility] Wnbvyijgox9[address] [place], [place] [address]Dr. Farhat Leal RBC 3.49 106/ul Critically low 4.70-6.10 [facility] Comment on above: Performed By: #### C BC ####[facility] Jwtbdsrdlu2377 [place] [address]Dr. Frahat Leal WBC 15.9 103/ul Critically high 4.0-11.0 [facility] Comment on above: Performed By: #### C BC ####[facility] Hsmauxthye85[address] [place], [place] [address]Dr. Farhat Leal CT HEAD WO CONon 11-23-2021 CT HEAD WO CON Normal [facility] CULTURE BLOODon 11-23-2021 Microscopic examination of blood, culture Culture Observations: NO GROWTH AT 5 DAYS. Normal [facility] Comment on above: Performed By: #### B LDCX2 ####[facility] Nqcvjchdsv2798 [place] [address]Dr. Farhat Elvis Covid-19 PCR (CVDTB)on SARS-CoV-2 (COVID-19) RNA JOHS+probe Ql (Unsp spec) Not detected Normal NOT DETECTED [facility] Comment on above: Result Comment: [...] for this test is supported by the Risk Management Specialist of Health and Human Service's declaration that [...] be used). Performed By: #### C VDTBH ####[facility] Ohgcnbicfl47[address] [place], [place] [address]DrSkylar Leal LACTATE/LACTIC ACIDon 2021 Lactate [Moles/Vol] 1.3 mmol/L Normal 0.4-1.9 [facility] Comment on above: Performed By: #### L ACT ####[facility] Ycqhgtqwaq377[address] [place], [place] [address]DrSkylar Leal Lactate [Moles/Vol] 1.3 mmol/L Normal 0.4-1.9 [facility] Comment on above: Performed By: #### L ACT ####[facility] Zftqsgwjvn4[address] [place], [place] [address]DrSkylar Leal POINT OF CARE GLUCOSEon Glucose [Mass/Vol] 252 mg/dL Critically high 74-106 T [facility] Comment on above: Performed By: #### P OCGLUC ####[facility] Sxtupnhvhg2569[address] [place], [place] [address]DrSkylar Leal PROF 14(COMP METB)on 022 Albumin [Mass/Vol] 1.6 g/dL Critically low 3.4-5.0 [facility] Comment on above: Performed By: #### C MP, CMADM, BNP ####[facility] Fabiumhujo4069 [place] [address]Dr. Farhat Elvis Albumin/Globulin [Mass ratio] 0.4 {ratio} Normal [facility] Comment on above: Performed By: #### C MP, CMADM, BNP ####[facility] Begdetbigd5748 [place] [address]Dr. Farhat Elvis ALP [Catalytic activity/Vol] 98 U/L Normal 46-116 [facility] Comment on above: Performed By: #### C MP, CMADM, BNP ####[facility] Hmfhyorucq7794 [place] [address]Dr. Farhat Leal ALT [Catalytic activity/Vol] 52 U/L Normal 16-63 [facility] Comment on above: Performed By: #### C MP, CMADM, BNP ####[facility] Xrlcarjllk1120 [place] [address]Dr. Farhat Leal Anion gap [Moles/Vol] 9.8 mmol/L Normal [facility] Comment on above: Performed By: #### C MP, CMADM, BNP ####[facility] Imcsnohstt33[address] [place], [place] [address]Dr. Farhat Leal AST [Catalytic activity/Vol] 122 U/L Critically high 15-37 [facility] Comment on above: Performed By: #### C MP, CMADM, BNP ####[facility] Whppvelfvz8896 [place] [address]Dr. Farhat Leal Bilirubin [Mass/Vol] 0.7 mg/dL Normal 0.2-1.0 [facility] Comment on above: Performed By: #### C MP, CMADM, BNP ####[facility] Cfkucwmvrn8127 [place] [address]Dr. Farhat Leal Calcium [Mass/Vol] 8.6 mg/dL Normal 8.5-10.1 [facility] Comment on above: Performed By: #### C MP, CMADM, BNP ####[facility] Ozrihxlopr9571 [place] [address]Dr. Farhat Leal Chloride [Moles/Vol] 95 mmol/L Critically low 98-107 [facility] Comment on above: Performed By: #### C MP, CMADM, BNP ####[facility] Gnjstybqsy2283 [place] [address]Dr. Farhat Leal CO2 [Moles/Vol] 29.6 mmol/L Normal 21.0-32.0 [facility] Comment on above: Performed By: #### C MP, CMADM, BNP ####[facility] Ldenggfjxc5278 [place] [address]Dr. Farhat Leal Creatinine [Mass/Vol] 1.49 mg/dL Critically high 0.70-1.30 [facility] Comment on above: Performed By: #### C MP, CMADM, BNP ####[facility] Ffzwbmogak6488[address] [place], [place] [address]Dr. Farhat Leal EGFR-AF BAHAMIAN 55 mL/min/1.73m2 Critically low >=60 [facility] Comment on above: Performed By: #### C MP, CMADM, BNP ####[facility] Rcsjmfcwry244[address] [place], [place] [address]Dr. Farhat Leal EGFR-NON AF BAHAMIAN 46 mL/min/1.73m2 Critically low >=60 [facility] Comment on above: Performed By: #### C MP, CMADM, BNP ####[facility] Ppwruidptk1309 [place] [address]Dr. Farhat Leal Globulin (S) [Mass/Vol] 4.3 g/dL Normal [facility] Comment on above: Performed By: #### C MP, CMADM, BNP ####[facility] Hejmgsglgg3703 [place] [address]Dr. Farhat Leal Glucose [Mass/Vol] 213 mg/dL Critically high 74-106 [facility] Comment on above: Performed By: #### C MP, CMADM, BNP ####[facility] Nygkqivsdw2789 [place] [address]Dr. Farhat Leal Potassium [Moles/Vol] 4.4 mmol/L Normal 3.5-5.1 [facility] Comment on above: Performed By: #### C MP, CMADM, BNP ####[facility] Uhhbmpdubi8566 [place] [address]Dr. Farhat Leal Protein [Mass/Vol] 5.9 g/dL Critically low 6.4-8.2 [facility] Comment on above: Performed By: #### C MP, CMADM, BNP ####[facility] Dzbbzdinkf2405[address] [place], [place] [address]Dr. Farhat Leal Sodium [Moles/Vol] 130 mmol/L Critically low 136-145 [facility] Comment on above: Performed By: #### C MP, CMADM, BNP ####[facility] Opwpyqifpm8580[address] [place], [place] [address]Dr. Farhat Leal Urea nitrogen [Mass/Vol] 46.0 mg/dL Critically high 7.0-18.0 [facility] Comment on above: Performed By: #### C MP, CMADM, BNP ####[facility] Oxpbvzwxzq5569[address] [place], [place] [address]Dr. Farhat Leal Urea nitrogen/Creatinine [Mass ratio] 30.9 mg/mg Normal [facility] Comment on above: Performed By: #### C MP, CMADM, BNP ####[facility] Llhixvrapl5332[address] [place], [place] [address]Dr. Farhat Leal PROTIMEon 11-23-2021 INR Coag (PPP) [Relative time] 2.55 {INR} Normal [facility] Comment on above: Performed By: #### P TT, PT ####[facility] Venmdkozuu[address] [place], [place] [address]Dr. Farhat Leal INR GUIDELINES SEE BELOW Normal [facility] Comment on above: Result Comment: MALINA RED INR: 2.0 - 3.0 CONDITIONS NOT LISTED BELOW 2.5 - 3.5 FOR PROSTHETIC HEART VALVE REPLACEMENT 2.5 - 3.5 RECURRENT THROMBOSIS Performed By: #### P TT, PT ####[facility] Wanjteidda9336[address] [place], [place] [address]Dr. Farhat Leal PT Coag (PPP) [Time] 25.9 s Critically high 9.0-11.6 [facility] Comment on above: Performed By: #### P TT, PT ####[facility] Ysrshudoqe71[address] [place] [id number]. Farhat Leal PTTon 11-23-2021 aPTT Coag (Bld) [Time] 39.9 s Critically high 22.3-36. 2 [facility] Comment on above: Performed By: #### P TT, PT ####[facility] Yacwrjvqpb4847[address] [place], [place] [address]Dr. Farhat Leal XR CHEST 1 Von 11-23-2021 XR CHEST 1 V Normal [facility] XR HEEL RT 2Von 11-23-2021 XR HEEL RT 2V Normal [facility] XR FOOT RT MIN 3 VIEWSon XR FOOT RT MIN 3 VIEWS Normal [facility] US ARTERY LEG RTon US ARTERY LEG RT Normal [facility] CBC AUTO DIFFon 09-24-2021 BASO # 0.1 103/ul Normal 0.0-0.1 [facility] Comment on above: Performed By: #### C BC ####[facility] Htkouusciq2748 [place] [address]Dr. Farhat Leal Basophils/100 WBC (Bld) 0.7 % Normal 0.2-2.0 [facility] Comment on above: Performed By: #### C BC ####[facility] Mruimjwsuj039[address] [place], [place] [address]Dr. Farhat Leal EO # 0.3 103/ul Normal 0.0-0.7 [facility] Comment on above: Performed By: #### C BC ####[facility] Vnioqwxwmy9076 [place] [id number]. Farhat Leal Eosinophils/100 WBC (Bld) 3.9 % Normal 0.9-7.0 [facility] Comment on above: Performed By: #### C BC ####[facility] Pwjnpcrkcs9379 [place] [id number]. Farhat Leal Erythrocyte distribution width (RBC) [Ratio] 12.6 % Normal 11.0-15.0 [facility] Comment on above: Performed By: #### C BC ####[facility] Cpxuehxarj9586 [place] [address]Dr. Farhat Leal Hematocrit (Bld) [Volume fraction] 38.9 % Critically low 42.0-54.0 [facility] Comment on above: Performed By: #### C BC ####[facility] Yzenvzwtho2691 [place] [address]DrSkylar Joshilorri Elvis Hemoglobin (Bld) [Mass/Vol] 12.8 g/dL Critically low 14.0-18.0 [facility] Comment on above: Performed By: #### C BC ####[facility] Vkbqteksxb5394[address] [place], [place] [address]DrSkylar Leal IG # 0.10 10e3/ul Critically high 0.00-0.03 [facility] Comment on above: Performed By: #### C BC ####[facility] Udslkvarpw8848[address] [place], [place] [address]DrSkylar Leal IG % 1.2 % Critically high 0.0-0.5 [facility] Comment on above: Performed By: #### C BC ####[facility] Pxvcvxysjt9875[address] [place], [place] [address]DrSkylar Madelynlorri Leal LYMPH # 2.1 103/ul Normal 1.2-3.8 [facility] Comment on above: Performed By: #### C BC ####[facility] Omwwlavjyg414[address] [place], [place] [address]DrSkylar Leal Lymphocytes/100 WBC (Bld) 25.9 % Normal 20.5-60.0 [facility] Comment on above: Performed By: #### C BC ####[facility] Lguqediomh1244[address] [place], [place] [address]DrSkylar Madelynlorri Leal MANUAL DIFF REQ NO Normal [facility] Comment on above: Performed By: #### C BC ####[facility] Rdppktqgcm7555[address] [place], [place] [address]DrSkylar Leal MCH (RBC) [Entitic mass] 31.1 pg Normal 25.9-34.0 [facility] Comment on above: Performed By: #### C BC ####[facility] Jyjxzgugnx23[address] [place] [id number]. Farhat Elvis MCHC (RBC) [Mass/Vol] 32.9 g/dL Normal 29.9-35.2 [facility] Comment on above: Performed By: #### C BC ####[facility] Jpvrwqhdxp7343 [place] [phone]. Madelynlorri Elvis MCV (RBC) [Entitic vol] 94.6 fL Critically high 80.0-94.0 [facility] Comment on above: Performed By: #### C BC ####[facility] Mbnhlvzdpe8500 [place] [address]DrSkylar Leal MONO # 1.2 103/ul Critically high 0.3-0.8 [facility] Comment on above: Performed By: #### C BC ####[facility] Bppjnyensq9268[address] [place], [place] [address]Dr. Farhat Leal Monocytes/100 WBC (Bld) 14.1 % Critically high 1.7-12.0 [facility] Comment on above: Performed By: #### C BC ####[facility] Gwkgrsfaga5[address] [place], [place] [address]Dr. Farhat Leal NEUT # 4.4 103/ul Normal 1.4-6.5 [facility] Comment on above: Performed By: #### C BC ####[facility] Okratorjpz4520[address] [place], [place] [address]Dr. Farhat Leal Neutrophils/100 WBC (Bld) 54.2 % Normal 43.0-75.0 [facility] Comment on above: Performed By: #### C BC ####[facility] Zjacrwwyix[address] [place], [place] [address]DrSkylar Leal Platelet mean volume (Bld) [Entitic vol] 9.9 fL Normal 9.5-13.5 [facility] Comment on above: Performed By: #### C BC ####[facility] Hzrerbtzat3356[address] [place], [place] [address]Dr. Farhat Leal PLT 224 103/ul Normal 150-450 [facility] Comment on above: Performed By: #### C BC ####[facility] Rgjrjwzjro4302 [place] [phone]. Farhat Leal RBC 4.11 106/ul Critically low 4.70-6.10 [facility] Comment on above: Performed By: #### C BC ####[facility] Jntqhmygbi5061 [place] [phone]. Farhat Leal WBC 8.2 103/ul Normal 4.0-11.0 [facility] Comment on above: Performed By: #### C BC ####[facility] Upyfxpyysc7935 [place] [phone]. Farhat Leal PROF CHEM 8 (BAS METB)on Anion gap [Moles/Vol] 9.6 mmol/L Normal [facility] Comment on above: Performed By: #### B MP ####[facility] Janlzcgxuf1523 [place] [address]Dr. Farhat Leal Calcium [Mass/Vol] 8.6 mg/dL Normal 8.5-10.1 [facility] Comment on above: Performed By: #### B MP ####[facility] Mscnqkcsto3732 [place] [address]Dr. Farhat Leal Chloride [Moles/Vol] 94 mmol/L Critically low 98-107 [facility] Comment on above: Performed By: #### B MP ####[facility] Pkskputzkb4263 [place] [phone]. Farhat Leal CO2 [Moles/Vol] 28.1 mmol/L Normal 21.0-32.0 [facility] Comment on above: Performed By: #### B MP ####[facility] Ihzoieliki5630 [place] [phone]. Farhat Leal Creatinine [Mass/Vol] 1.91 mg/dL Critically high 0.70-1.30 [facility] Comment on above: Performed By: #### B MP ####[facility] Zulzpgtovd7508 [place] [phone]. Farhat Leal EGFR-AF BAHAMIAN 42 mL/min/1.73m2 Critically low >=60 [facility] Comment on above: Performed By: #### B MP ####[facility] Evzqsrgqal5924[address] [place], [place] [address]Dr. Farhat Leal EGFR-NON AF BAHAMIAN 34 mL/min/1.73m2 Critically low >=60 [facility] Comment on above: Performed By: #### B MP ####[facility] Oknrcwlcfc3446[address] [place], [place] [address]Dr. Farhat Leal Glucose [Mass/Vol] 314 mg/dL Critically high 74-106 T [facility] Comment on above: Performed By: #### B MP ####[facility] Vkuloajooc6612[address] [place], [place] [address]Dr. Farhat Leal Potassium [Moles/Vol] 4.7 mmol/L Normal 3.5-5.1 [facility] Comment on above: Performed By: #### B MP ####[facility] Mdfziygcxn2660[address] [place], [place] [address]Dr. Farhat Leal Sodium [Moles/Vol] 127 mmol/L Critically low 136-145 [facility] Comment on above: Performed By: #### B MP ####[facility] Isfpjvdyun5601[address] [place], [place] [address]Dr. Farhat Leal Urea nitrogen [Mass/Vol] 79.0 mg/dL Critically high 7.0-18.0 [facility] Comment on above: Result Comment: repe ated Performed By: #### B MP ####[facility] Fkqpgjaawm1532[address] [place], [place] [address]Dr. Farhat Leal Urea nitrogen/Creatinine [Mass ratio] 41.4 mg/mg Normal [facility] Comment on above: Performed By: #### B MP ####[facility] Emysyaprvo8906[address] [place], [place] [address]Dr. Farhat Leal PTT HEPARIN MONITORon 2021 aPTT Coag (Bld) [Time] 42.7 s Normal 39.5-54.2 [facility] Comment on above: Performed By: #### P TTHEP ####[facility] Gnkihtcdpp323[address] [place], [place] [address]Dr. Madelynlorri Leal aPTT Coag (Bld) [Time] 56.7 s Critically high 39.5-54. 2 [facility] Comment on above: Performed By: #### P TTHEP ####[facility] Agrdmzlpfy702[address] [place], [place] [address]Dr. Farhat Elvis CBC AUTO DIFFon 09-23-2021 BASO # 0.1 103/ul Normal 0.0-0.1 [facility] Comment on above: Performed By: #### C BC ####[facility] Mwarqkjqjc1538[address] [place], [place] [address]Dr. Farhat Leal Basophils/100 WBC (Bld) 0.6 % Normal 0.2-2.0 [facility] Comment on above: Performed By: #### C BC ####[facility] Lepitftjvx8596[address] [place], [place] [address]Dr. Farhat Leal EO # 0.2 103/ul Normal 0.0-0.7 [facility] Comment on above: Performed By: #### C BC ####[facility] Dqtvtmtqoz6078[address] [place], [place] [address]Dr. Farhat Leal Eosinophils/100 WBC (Bld) 2.6 % Normal 0.9-7.0 [facility] Comment on above: Performed By: #### C BC ####[facility] Lyiyvlfdcj2778[address] [place], [place] [address]Dr. Farhat Leal Erythrocyte distribution width (RBC) [Ratio] 12.4 % Normal 11.0-15.0 [facility] Comment on above: Performed By: #### C BC ####[facility] Rnafrwcill473[address] [place], [place] [address]Dr. Farhat Leal Hematocrit (Bld) [Volume fraction] 38.4 % Critically low 42.0-54.0 [facility] Comment on above: Performed By: #### C BC ####[facility] Cqnykgjtus[address] [place], [place] [address]Dr. Farhat Leal Hemoglobin (Bld) [Mass/Vol] 12.8 g/dL Critically low 14.0-18.0 [facility] Comment on above: Performed By: #### C BC ####[facility] Spotvhytjx8764 [place] [phone]. Madelynlorri Leal IG # 0.06 10e3/ul Critically high 0.00-0.03 [facility] Comment on above: Performed By: #### C BC ####[facility] Dghhycpmac5558 [place] [phone]. Farhat Leal IG % 0.8 % Critically high 0.0-0.5 [facility] Comment on above: Performed By: #### C BC ####[facility] Zwsnuklxyc3023 [place] [address]Dr. Farhat Leal LYMPH # 1.5 103/ul Normal 1.2-3.8 [facility] Comment on above: Performed By: #### C BC ####[facility] Kbwrckawka0338 [place] [address]Dr. Farhat Leal Lymphocytes/100 WBC (Bld) 19.7 % Critically low 20.5-60.0 [facility] Comment on above: Performed By: #### C BC ####[facility] Vthhohfybv9591 [place] [address]Dr. Farhat Leal MANUAL DIFF REQ NO Normal [facility] Comment on above: Performed By: #### C BC ####[facility] Tqyhbbqmru1459 [place] [phone]. Farhat Leal MCH (RBC) [Entitic mass] 31.6 pg Normal 25.9-34.0 [facility] Comment on above: Performed By: #### C BC ####[facility] Vzfqhvjhxg4657 [place] [phone]. Farhat Leal MCHC (RBC) [Mass/Vol] 33.3 g/dL Normal 29.9-35.2 [facility] Comment on above: Performed By: #### C BC ####[facility] Bhcaepnwdf[address] [place] [phone]. Farhat Leal MCV (RBC) [Entitic vol] 94.8 fL Critically high 80.0-94.0 [facility] Comment on above: Performed By: #### C BC ####[facility] Vlefnytsmo7429 [place] [phone]. Farhat Leal MONO # 1.0 103/ul Critically high 0.3-0.8 [facility] Comment on above: Performed By: #### C BC ####[facility] Azjklowupx4031 [place] [phone]. Farhat Leal Monocytes/100 WBC (Bld) 13.0 % Critically high 1.7-12.0 [facility] Comment on above: Performed By: #### C BC ####[facility] Pwdknhmlhx5387 [place] [phone]. Farhat Leal NEUT # 4.9 103/ul Normal 1.4-6.5 [facility] Comment on above: Performed By: #### C BC ####[facility] Qdeqmdnmif7401 [place] [address]Dr. Farhat Leal Neutrophils/100 WBC (Bld) 63.3 % Normal 43.0-75.0 [facility] Comment on above: Performed By: #### C BC ####[facility] Cdlzqtmksz4427 [place] [phone]. Farhat Leal Platelet mean volume (Bld) [Entitic vol] 10.7 fL Normal 9.5-13.5 [facility] Comment on above: Performed By: #### C BC ####[facility] Dtxjsxzzdx8424 [place] [phone]. Farhat Leal PLT 205 103/ul Normal 150-450 [facility] Comment on above: Performed By: #### C BC ####[facility] Vxaagqdson0665 [place] [phone]. Farhat Leal RBC 4.05 106/ul Critically low 4.70-6.10 [facility] Comment on above: Performed By: #### C BC ####[facility] Trorbplchn7543 [place] [phone]. Farhat Leal WBC 7.7 103/ul Normal 4.0-11.0 [facility] Comment on above: Performed By: #### C BC ####[facility] Kktgjsfynk6751 [place] [address]Dr. Farhat Leal PROF CHEM 8 (BAS METB)on Anion gap [Moles/Vol] 15.5 mmol/L Normal [facility] Comment on above: Performed By: #### B MP ####[facility] Aluwhzvzwd0856 [place] [address]Dr. Farhat Leal Calcium [Mass/Vol] 9.1 mg/dL Normal 8.5-10.1 [facility] Comment on above: Performed By: #### B MP ####[facility] I[address]qcdjnchm[address] [place], [place] [address]Dr. Farhat Leal Chloride [Moles/Vol] 92 mmol/L Critically low 98-107 [facility] Comment on above: Performed By: #### B MP ####[facility] [facility] [address] [place], [place] [address]Dr. Farhat Leal CO2 [Moles/Vol] 28.5 mmol/L Normal 21.0-32.0 [facility] Comment on above: Performed By: #### B MP ####[facility] Ulhphoxatc15[address] [place], [place] [address]Dr. Farhat Leal Creatinine [Mass/Vol] 1.84 mg/dL Critically high 0.70-1.30 [facility] Comment on above: Performed By: #### B MP ####[facility] Asscqagvju850[address] [place], [place] [address]Dr. Farhat Leal EGFR-AF BAHAMIAN 44 mL/min/1.73m2 Critically low >=60 [facility] Comment on above: Performed By: #### B MP ####[facility] Kxthtxepgj68[address] [place], [place] [address]Dr. Farhat Leal EGFR-NON AF BAHAMIAN 36 mL/min/1.73m2 Critically low >=60 [facility] Comment on above: Performed By: #### B MP ####[facility] Mbnzoraizd177[address] [place], [place] [address]Dr. Farhat Leal Glucose [Mass/Vol] 267 mg/dL Critically high 74-106 T [facility] Comment on above: Performed By: #### B MP ####[facility] Ydavabqhmg230[address] [place], [place] [address]Dr. Farhat Leal Potassium [Moles/Vol] 5.0 mmol/L Normal 3.5-5.1 [facility] Comment on above: Performed By: #### B MP ####[facility] Zgshtmgdhk864[address] [place], [place] [address]Dr. Madelynlorri Elvis Sodium [Moles/Vol] 131 mmol/L Critically low 136-145 [facility] Comment on above: Performed By: #### B MP ####[facility] Nnrwasepoi7237[address] [place], [place] [address]Dr. Madelynlorri Elvis Urea nitrogen [Mass/Vol] 76.0 mg/dL Critically high 7.0-18.0 [facility] Comment on above: Performed By: #### B MP ####[facility] Ymwlnqlmis394[address] [place], [place] [address]Dr. Madelynlorri Elvis Urea nitrogen/Creatinine [Mass ratio] 41.3 mg/mg Normal [facility] Comment on above: Performed By: #### B MP ####[facility] Fjadoqrodk2464[address] [place], [place] [address]Dr. Farhat Elvis PTT HEPARIN MONITORon 2021 aPTT Coag (Bld) [Time] 57.2 s Critically high 39.5-54. 2 [facility] Comment on above: Performed By: #### P TTHEP ####[facility] Fvrnssjbyv95232[address] [place], [place] [address]Dr. Madelynlorri Elvis aPTT Coag (Bld) [Time] 74.7 s Critically high 39.5-54. 2 [facility] Comment on above: Result Comment: repe ated Performed By: #### P TTHEP ####[facility] Hqnqqrwobn30[address] [place], [place] [address]Dr. Madelynlorri Elvis aPTT Coag (Bld) [Time] 45.5 s Normal 39.5-54.2 [facility] Comment on above: Performed By: #### P TTHEP ####[facility] Alvibocauf[address] [place] [id number]. Farhat Leal CBC AUTO DIFFon 09-22-2021 BASO # 0.1 103/ul Normal 0.0-0.1 [facility] Comment on above: Performed By: #### C BC ####[facility] Jjkxgvkutq1184 [place] [phone]. Madelynlorri Leal Basophils/100 WBC (Bld) 0.7 % Normal 0.2-2.0 [facility] Comment on above: Performed By: #### C BC ####[facility] Lrnmbzeero0565[address] [place], [place] [address]Dr. Farhat Elvis EO # 0.3 103/ul Normal 0.0-0.7 [facility] Comment on above: Performed By: #### C BC ####[facility] Unozsbwxfg5050[address] [place], [place] [address]Dr. Madelynlorri Leal Eosinophils/100 WBC (Bld) 3.2 % Normal 0.9-7.0 [facility] Comment on above: Performed By: #### C BC ####[facility] Gviufswsoc867[address] [place], [place] [address]Dr. Farhat Leal Erythrocyte distribution width (RBC) [Ratio] 12.5 % Normal 11.0-15.0 [facility] Comment on above: Performed By: #### C BC ####[facility] Jlzdeohtbh994[address] [place], [place] [address]Dr. Farhat Leal Hematocrit (Bld) [Volume fraction] 40.5 % Critically low 42.0-54.0 [facility] Comment on above: Performed By: #### C BC ####[facility] Mrybeadwvu9964[address] [place], [place] [address]Dr. Farhat Leal Hemoglobin (Bld) [Mass/Vol] 13.4 g/dL Critically low 14.0-18.0 [facility] Comment on above: Performed By: #### C BC ####[facility] Tvvkyegflx[address] [place] [address]Dr. Farhat Leal IG # 0.11 10e3/ul Critically high 0.00-0.03 [facility] Comment on above: Performed By: #### C BC ####[facility] Navnhmddmp7[address] [place] [phone]. Farhat Leal IG % 1.3 % Critically high 0.0-0.5 [facility] Comment on above: Performed By: #### C BC ####[facility] Cpbwtfmalj6267 [place] [phone]. Farhat Leal LYMPH # 1.7 103/ul Normal 1.2-3.8 [facility] Comment on above: Performed By: #### C BC ####[facility] Yvuqyfthmx7945 [place] [phone]. Farhat Leal Lymphocytes/100 WBC (Bld) 19.6 % Critically low 20.5-60.0 [facility] Comment on above: Performed By: #### C BC ####[facility] Qrklvdtxar9378 [place] [address]Dr. Farhat Leal MANUAL DIFF REQ NO Normal [facility] Comment on above: Performed By: #### C BC ####[facility] Tzwppbrcuc[address] [place] [phone]. Farhat Leal MCH (RBC) [Entitic mass] 31.1 pg Normal 25.9-34.0 [facility] Comment on above: Performed By: #### C BC ####[facility] Ehbgjjldqw4786 [place] [phone]. Farhat Leal MCHC (RBC) [Mass/Vol] 33.1 g/dL Normal 29.9-35.2 [facility] Comment on above: Performed By: #### C BC ####[facility] Vimurqwfjc5867 [place] [phone]. Farhat Leal MCV (RBC) [Entitic vol] 94.0 fL Normal 80.0-94.0 [facility] Comment on above: Performed By: #### C BC ####[facility] Rkbrvbrmht6019 [place] [phone]. Farhat Leal MONO # 1.1 103/ul Critically high 0.3-0.8 [facility] Comment on above: Performed By: #### C BC ####[facility] Heqdbryfsy1433 [place] [phone]. Farhat Leal Monocytes/100 WBC (Bld) 12.7 % Critically high 1.7-12.0 [facility] Comment on above: Performed By: #### C BC ####[facility] Xfuyhifjrd5837 [place] [phone]. Farhat Leal NEUT # 5.3 103/ul Normal 1.4-6.5 [facility] Comment on above: Performed By: #### C BC ####[facility] Bkjvpkdybu1369 [place] [phone]. Farhat Leal Neutrophils/100 WBC (Bld) 62.5 % Normal 43.0-75.0 [facility] Comment on above: Performed By: #### C BC ####[facility] Fpiznbhtjo2104 [place] [address]DrSkylar Farhat Leal Platelet mean volume (Bld) [Entitic vol] 10.1 fL Normal 9.5-13.5 [facility] Comment on above: Performed By: #### C BC ####[facility] Jeuvjqimrg6947 [place] [phone]. Farhat Leal PLT 220 103/ul Normal 150-450 [facility] Comment on above: Performed By: #### C BC ####[facility] Yuqpifzqzq0380 [place] [phone]. Farhat Leal RBC 4.31 106/ul Critically low 4.70-6.10 [facility] Comment on above: Performed By: #### C BC ####[facility] Dxdntypwzk5657 [place] [phone]. Farhat Leal WBC 8.4 103/ul Normal 4.0-11.0 [facility] Comment on above: Performed By: #### C BC ####[facility] Yefbezydlb8185 [place] [phone] Madelynlorri Leal PROF CHEM 8 (BAS METB)on Anion gap [Moles/Vol] 15.5 mmol/L Normal [facility] Comment on above: Performed By: #### B MP ####[facility] Ikiptrdmdv9803 [place] [address]Dr. Farhat Leal Calcium [Mass/Vol] 8.9 mg/dL Normal 8.5-10.1 [facility] Comment on above: Performed By: #### B MP ####[facility] Vjnmdemgka5723 [place] [phone]. Madelynlorri Elvis Chloride [Moles/Vol] 92 mmol/L Critically low 98-107 [facility] Comment on above: Performed By: #### B MP ####[facility] Gbscwjgbgg189[address] [place], [place] [address]Dr. Madelynlorri Elvis CO2 [Moles/Vol] 25.7 mmol/L Normal 21.0-32.0 [facility] Comment on above: Performed By: #### B MP ####[facility] Vxhkskergy6807[address] [place], [place] [address]Dr. Madelynlorri Elvis Creatinine [Mass/Vol] 1.85 mg/dL Critically high 0.70-1.30 [facility] Comment on above: Performed By: #### B MP ####[facility] Obwokgwhhy8274[address] [place], [place] [address]Dr. Madelynlorri Elvis EGFR-AF BAHAMIAN 43 mL/min/1.73m2 Critically low >=60 [facility] Comment on above: Performed By: #### B MP ####[facility] Abibueeyeb1629[address] [place], [place] [address]Dr. Madelynlorri Elvis EGFR-NON AF BAHAMIAN 36 mL/min/1.73m2 Critically low >=60 [facility] Comment on above: Performed By: #### B MP ####[facility] Haemwkytyf3486[address] [place], [place] [address]Dr. Farhat Leal Glucose [Mass/Vol] 410 mg/dL Critically high 74-106 [facility] Comment on above: Performed By: #### B MP ####[facility] Obynabqytv[address] [place], [place] [address]Dr. Farhat Leal Potassium [Moles/Vol] 5.2 mmol/L Critically high 3.5-5.1 [facility] Comment on above: Performed By: #### B MP ####[facility] Qbhmpzwjrg283627 [address] [place], [place] [address]Dr. Farhat Elvis Sodium [Moles/Vol] 128 mmol/L Critically low 136-145 [facility] Comment on above: Performed By: #### B MP ####[facility] Ynflcxnugk401[address] [place], [place] [address]Dr. Farhat Elvis Urea nitrogen [Mass/Vol] 75.0 mg/dL Critically high 7.0-18.0 [facility] Comment on above: Performed By: #### B MP ####[facility] Srpieamiox770627 [address] [place], [place] [address]Dr. Madelynlorri Elvis Urea nitrogen/Creatinine [Mass ratio] 40.5 mg/mg Normal [facility] Comment on above: Performed By: #### B MP ####[facility] Phnkfwqren524627 [address] [place], [place] [address]Dr. Farhat Elvis PTT HEPARIN MONITORon 2021 aPTT Coag (Bld) [Time] 51.2 s Normal 39.5-54.2 [facility] Comment on above: Performed By: #### P TTHEP ####[facility] Krhnxdzhhu3387[address] [place], [place] [address]Dr. Farhat Elvis aPTT Coag (Bld) [Time] 55.6 s Critically high 39.5-54. 2 [facility] Comment on above: Performed By: #### P TTHEP ####[facility] Rwwkzanbog7625[address] [place], [place] [address]Dr. Farhat Elvis aPTT Coag (Bld) [Time] 46.1 s Normal 39.5-54.2 [facility] Comment on above: Performed By: #### P TTHEP ####[facility] Ykuowjepcb196[address] [place], [place] [address]Dr. Madelynlorri Elvis aPTT Coag (Bld) [Time] 53.8 s Normal 39.5-54.2 [facility] Comment on above: Performed By: #### P TTHEP ####[facility] Hkdwpmdnxj0501 [place] [phone]. Farhat Leal CBC AUTO DIFFon 09-21-2021 BASO # 0.1 103/ul Normal 0.0-0.1 [facility] Comment on above: Performed By: #### C BC ####[facility] Nlkmfbfzwd8571 [place] [phone]. Farhat Leal Basophils/100 WBC (Bld) 0.8 % Normal 0.2-2.0 [facility] Comment on above: Performed By: #### C BC ####[facility] Yorbneagyo0694 [place] [address]Dr. Farhat Leal EO # 0.4 103/ul Normal 0.0-0.7 [facility] Comment on above: Performed By: #### C BC ####[facility] Wvwyjwzzqm6966[address] [place], [place] [address]Dr. Farhat Elvis Eosinophils/100 WBC (Bld) 4.3 % Normal 0.9-7.0 [facility] Comment on above: Performed By: #### C BC ####[facility] Xcyoghqfdn364[address] [place], [place] [address]Dr. Farhat Leal Erythrocyte distribution width (RBC) [Ratio] 12.5 % Normal 11.0-15.0 [facility] Comment on above: Performed By: #### C BC ####[facility] Sujysomyvm5670[address] [place], [place] [address]Dr. Fahrat Leal Hematocrit (Bld) [Volume fraction] 40.8 % Critically low 42.0-54.0 [facility] Comment on above: Performed By: #### C BC ####[facility] Qxmjrvkiyq366[address] [place], [place] [address]Dr. Farhat Leal Hemoglobin (Bld) [Mass/Vol] 13.5 g/dL Critically low 14.0-18.0 [facility] Comment on above: Performed By: #### C BC ####[facility] Jndtaflmwf7790[address] [place], [place] [address]Dr. Farhat Leal IG # 0.10 10e3/ul Critically high 0.00-0.03 [facility] Comment on above: Performed By: #### C BC ####[facility] Cjiydydydr0739 [place] [phone] Farhat Elvis IG % 1.2 % Critically high 0.0-0.5 [facility] Comment on above: Performed By: #### C BC ####[facility] Yqfjebphpo0895 [place] [phone] Farhat Elvis LYMPH # 1.3 103/ul Normal 1.2-3.8 [facility] Comment on above: Performed By: #### C BC ####[facility] Kyzrbvqwvj1231 [place] [phone] Madelynlorri Leal Lymphocytes/100 WBC (Bld) 15.4 % Critically low 20.5-60.0 [facility] Comment on above: Performed By: #### C BC ####[facility] Tedqyxdxpp4013 [place] [phone] Madelynlorri Leal MANUAL DIFF REQ NO Normal [facility] Comment on above: Performed By: #### C BC ####[facility] Bdudpvutog3099 [place] [phone] Farhat Elvis MCH (RBC) [Entitic mass] 31.0 pg Normal 25.9-34.0 [facility] Comment on above: Performed By: #### C BC ####[facility] Sepycpphht2961 [place] [phone] Farhat Elvis MCHC (RBC) [Mass/Vol] 33.1 g/dL Normal 29.9-35.2 [facility] Comment on above: Performed By: #### C BC ####[facility] Dsvbadbvjh5686 [place] [phone] Farhat Elvis MCV (RBC) [Entitic vol] 93.8 fL Normal 80.0-94.0 [facility] Comment on above: Performed By: #### C BC ####[facility] Vadwdlobpy9662 [place] [phone] Leal MONO # 1.2 103/ul Critically high 0.3-0.8 [facility] Comment on above: Performed By: #### C BC ####[facility] Hwpjsrmjam2924 [place] [phone]. Farhat Leal Monocytes/100 WBC (Bld) 13.6 % Critically high 1.7-12.0 [facility] Comment on above: Performed By: #### C BC ####[facility] Gztubrwktw1406 [place] [phone]. Farhat Leal NEUT # 5.5 103/ul Normal 1.4-6.5 [facility] Comment on above: Performed By: #### C BC ####[facility] Wbfgrupbnc2406 [place] [address]Dr. Farhat Leal Neutrophils/100 WBC (Bld) 64.7 % Normal 43.0-75.0 [facility] Comment on above: Performed By: #### C BC ####[facility] Ykjhofuuuq1257 [place] [address]Dr. Farhat Leal Platelet mean volume (Bld) [Entitic vol] 9.8 fL Normal 9.5-13.5 [facility] Comment on above: Performed By: #### C BC ####[facility] Argxkiabxm3047 [place] [address]Dr. Farhat Leal PLT 206 103/ul Normal 150-450 [facility] Comment on above: Performed By: #### C BC ####[facility] Zkymdteqab0343 [place] [phone]. Farhat Leal RBC 4.35 106/ul Critically low 4.70-6.10 [facility] Comment on above: Performed By: #### C BC ####[facility] Gaduxmryhv7703 [place] [phone]. Farhat Leal WBC 8.4 103/ul Normal 4.0-11.0 [facility] Comment on above: Performed By: #### C BC ####[facility] Bsfbalvequ3184 [place] [phone] Farhat Elvis PROF CHEM 8 (BAS METB)on Anion gap [Moles/Vol] 12.3 mmol/L Normal [facility] Comment on above: Performed By: #### B MP ####[facility] Gdruosfevp9856 [place] [address]Dr. Farhat Leal Calcium [Mass/Vol] 8.6 mg/dL Normal 8.5-10.1 [facility] Comment on above: Performed By: #### B MP ####[facility] Lpfxpebdkt8566[address] [place], [place] [address]Dr. Madelynlorri Elvis Chloride [Moles/Vol] 94 mmol/L Critically low 98-107 [facility] Comment on above: Performed By: #### B MP ####[facility] Djvbqfxzjn2701[address] [place], [place] [address]Dr. Madelynlorri Elvis CO2 [Moles/Vol] 30.8 mmol/L Normal 21.0-32.0 [facility] Comment on above: Performed By: #### B MP ####[facility] Kobapevrsj8118[address] [place], [place] [address]Dr. Madelynlorri Elvis Creatinine [Mass/Vol] 1.99 mg/dL Critically high 0.70-1.30 [facility] Comment on above: Performed By: #### B MP ####[facility] Zpfseubazr4201[address] [place], [place] [address]Dr. Madelynlorri Elvis EGFR-AF BAHAMIAN 40 mL/min/1.73m2 Critically low >=60 [facility] Comment on above: Performed By: #### B MP ####[facility] Btsqisqoav8018[address] [place], [place] [address]Dr. Madelynlorri Elvis EGFR-NON AF BAHAMIAN 33 mL/min/1.73m2 Critically low >=60 [facility] Comment on above: Performed By: #### B MP ####[facility] Daucjmgerk336[address] [place], [place] [address]Dr. Farhat Leal Glucose [Mass/Vol] 264 mg/dL Critically high 74-106 [facility] Comment on above: Performed By: #### B MP ####[facility] Czsasiwehx7304[address] [place], [place] [address]Dr. Farhat Leal Potassium [Moles/Vol] 5.1 mmol/L Normal 3.5-5.1 [facility] Comment on above: Performed By: #### B MP ####[facility] Rabwltawwo1074[address] [place], [place] [address]Dr. Madelynlorri Elvis Sodium [Moles/Vol] 132 mmol/L Critically low 136-145 [facility] Comment on above: Performed By: #### B MP ####[facility] Zekiabeyvn4120[address] [place], [place] [address]Dr. Madelynlorri Elvis Urea nitrogen [Mass/Vol] 72.0 mg/dL Critically high 7.0-18.0 [facility] Comment on above: Performed By: #### B MP ####[facility] Svknbzilyy6997[address] [place], [place] [address]Dr. Farhat Leal Urea nitrogen/Creatinine [Mass ratio] 36.2 mg/mg Normal [facility] Comment on above: Performed By: #### B MP ####[facility] Djkzmyuysr7647[address] [place], [place] [address]Dr. Farhat Leal PTT HEPARIN MONITORon 2021 aPTT Coag (Bld) [Time] 45.3 s Normal 39.5-54.2 [facility] Comment on above: Performed By: #### P TTHEP ####[facility] Seoqyhuhab1556[address] [place], [place] [address]Dr. Madelynlorri Elvis aPTT Coag (Bld) [Time] 68.0 s Critically high 39.5-54. 2 [facility] Comment on above: Performed By: #### P TTHEP ####[facility] Llbmloojrg500[address] [place], [place] [address]Dr. Madelynlorri Elvis aPTT Coag (Bld) [Time] 69.4 s Critically high 39.5-54. 2 [facility] Comment on above: Performed By: #### P TTHEP ####[facility] Kvwnllethi718[address] [place], [place] [address]Dr. Farhat Leal aPTT Coag (Bld) [Time] 53.5 s Normal 39.5-54.2 [facility] Comment on above: Performed By: #### P TTHEP ####[facility] Acwrkpsdjv2097 [place] [address]Dr. Farhat Leal aPTT Coag (Bld) [Time] 126.9 s Critically high 39.5-54. 2 [facility] Comment on above: Performed By: #### P TTHEP ####[facility] Vhaxjebxyw493[address] [place], [place] [address]Dr. Farhat Elvis CBC AUTO DIFFon 09-20-2021 BASO # 0.1 103/ul Normal 0.0-0.1 [facility] Comment on above: Performed By: #### C BC ####[facility] Fwvujeyrrr515[address] [place], [place] [address]Dr. Farhat Leal Basophils/100 WBC (Bld) 0.7 % Normal 0.2-2.0 [facility] Comment on above: Performed By: #### C BC ####[facility] Qierbzztud4239[address] [place], [place] [address]Dr. Farhat Leal EO # 0.2 103/ul Normal 0.0-0.7 [facility] Comment on above: Performed By: #### C BC ####[facility] Vxrzqiwpgm659[address] [place], [place] [address]Dr. Madelynlorri Leal Eosinophils/100 WBC (Bld) 3.2 % Normal 0.9-7.0 [facility] Comment on above: Performed By: #### C BC ####[facility] Hknuziofqe3375[address] [place], [place] [address]Dr. Madelynlorri Leal Erythrocyte distribution width (RBC) [Ratio] 12.4 % Normal 11.0-15.0 [facility] Comment on above: Performed By: #### C BC ####[facility] Ojhsboxfpc7120[address] [place], [place] [address]Dr. Farhat Leal Hematocrit (Bld) [Volume fraction] 40.1 % Critically low 42.0-54.0 [facility] Comment on above: Performed By: #### C BC ####[facility] Ktfbemlvvc0627[address] [place], [place] [address]Dr. Madelynlorri Leal Hemoglobin (Bld) [Mass/Vol] 13.4 g/dL Critically low 14.0-18.0 [facility] Comment on above: Performed By: #### C BC ####[facility] Ebjohrrulu6985 [place] [address]DrSkylar Leal IG # 0.08 10e3/ul Critically high 0.00-0.03 [facility] Comment on above: Performed By: #### C BC ####[facility] Iahjrmiifx2231 [place] [address]DrSkylar Leal IG % 1.1 % Critically high 0.0-0.5 [facility] Comment on above: Performed By: #### C BC ####[facility] Jwjzypjamz3815 [place] [address]DrSkylar Leal LYMPH # 1.3 103/ul Normal 1.2-3.8 [facility] Comment on above: Performed By: #### C BC ####[facility] Ewhgfauinr9317 [place] [address]DrSkylar Leal Lymphocytes/100 WBC (Bld) 17.3 % Critically low 20.5-60.0 [facility] Comment on above: Performed By: #### C BC ####[facility] Atitypcrmo7832 [place] [address]DrSkylar Leal MANUAL DIFF REQ NO Normal [facility] Comment on above: Performed By: #### C BC ####[facility] Opfimabnuc6968 [place] [address]DrSkylar Leal MCH (RBC) [Entitic mass] 31.2 pg Normal 25.9-34.0 [facility] Comment on above: Performed By: #### C BC ####[facility] Vqkwjzmofx3777 [place] [address]DrSkylar Leal MCHC (RBC) [Mass/Vol] 33.4 g/dL Normal 29.9-35.2 [facility] Comment on above: Performed By: #### C BC ####[facility] Tgyqfvskez8162 [place] [address]DrSkylar Leal MCV (RBC) [Entitic vol] 93.3 fL Normal 80.0-94.0 [facility] Comment on above: Performed By: #### C BC ####[facility] Tvzxyrewul2553 [place] [address]DrSkylar Farhat Leal MONO # 0.9 103/ul Critically high 0.3-0.8 [facility] Comment on above: Performed By: #### C BC ####[facility] Hfbzyozhpg9205 [place] [address]DrSkylar Madelynlorri Leal Monocytes/100 WBC (Bld) 12.4 % Critically high 1.7-12.0 [facility] Comment on above: Performed By: #### C BC ####[facility] Cqgqtxjarr[address] [place], [place] [address]Dr. Farhat Leal NEUT # 4.7 103/ul Normal 1.4-6.5 [facility] Comment on above: Performed By: #### C BC ####[facility] Zgvmzohtwh468[address] [place], [place] [address]Dr. Farhat Leal Neutrophils/100 WBC (Bld) 65.3 % Normal 43.0-75.0 [facility] Comment on above: Performed By: #### C BC ####[facility] Rfdesgmzzv82[address] [place], [place] [address]DrSkylar Farhat Elvis Platelet mean volume (Bld) [Entitic vol] 9.9 fL Normal 9.5-13.5 [facility] Comment on above: Performed By: #### C BC ####[facility] Wxotknitds8374 [place] [address]Dr. Farhat Elvis PLT 180 103/ul Normal 150-450 [facility] Comment on above: Performed By: #### C BC ####[facility] Frvodnfutz9885 [place] [phone] Leal RBC 4.30 106/ul Critically low 4.70-6.10 [facility] Comment on above: Performed By: #### C BC ####[facility] Fnrfnnmqrl3131 [place] [phone] Leal WBC 7.2 103/ul Normal 4.0-11.0 [facility] Comment on above: Performed By: #### C BC ####[facility] Xiaxadxezg750[address] [place], [place] [address]Dr. Madelynlorri Leal PTT HEPARIN MONITORon 2021 aPTT Coag (Bld) [Time] 26.7 s Critically low 39.5-54.2 [facility] Comment on above: Performed By: #### P TTHEP ####[facility] Iplmrcmgzu98[address] [place], [place] [address]Dr. Madelynlorri Leal aPTT Coag (Bld) [Time] 121.0 s Critically high 39.5-54. 2 [facility] Comment on above: Performed By: #### P TTHEP ####[facility] Epvefnnavg4450[address] [place], [place] [address]Dr. Farhat Leal aPTT Coag (Bld) [Time] 27.6 s Critically low 39.5-54.2 [facility] Comment on above: Performed By: #### P TTHEP ####[facility] Fxvigevcll42[address] [place], [place] [address]Dr. Madelynlorri Leal aPTT Coag (Bld) [Time] 139.0 s Critically high 39.5-54. 2 [facility] Comment on above: Performed By: #### P TTHEP ####[facility] Bnamoglqdz4430[address] [place], [place] [address]Dr. Farhat Leal CBC AUTO DIFFon 09-19-2021 BASO # 0.0 103/ul Normal 0.0-0.1 [facility] Comment on above: Performed By: #### C BC ####[facility] Pwatnslwcv314[address] [place], [place] [address]Dr. Farhat Leal Basophils/100 WBC (Bld) 0.5 % Normal 0.2-2.0 [facility] Comment on above: Performed By: #### C BC ####[facility] Dfwksdttvm937[address] [place], [place] [address]Dr. Farhat Leal EO # 0.2 103/ul Normal 0.0-0.7 [facility] Comment on above: Performed By: #### C BC ####[facility] Hdgbmuwmto3235 [place] [id number]. Farhat Leal Eosinophils/100 WBC (Bld) 2.6 % Normal 0.9-7.0 [facility] Comment on above: Performed By: #### C BC ####[facility] Qomvsxpqsq3833 [place] [id number]. Farhat Leal Erythrocyte distribution width (RBC) [Ratio] 12.5 % Normal 11.0-15.0 [facility] Comment on above: Performed By: #### C BC ####[facility] Liaxfqrmgo2533 [place] [address]Dr. Farhat Leal Hematocrit (Bld) [Volume fraction] 39.2 % Critically low 42.0-54.0 [facility] Comment on above: Performed By: #### C BC ####[facility] Mbynvtqpuq3258[address] [place], [place] [address]Dr. Farhat Leal Hemoglobin (Bld) [Mass/Vol] 13.3 g/dL Critically low 14.0-18.0 [facility] Comment on above: Performed By: #### C BC ####[facility] Kcexffffpn[address] [place], [place] [address]Dr. Farhat Leal IG # 0.08 10e3/ul Critically high 0.00-0.03 [facility] Comment on above: Performed By: #### C BC ####[facility] Fgscicloxj2151 [place] [address]Dr. Farhat Leal IG % 0.9 % Critically high 0.0-0.5 The [facility] Comment on above: Performed By: #### C BC ####[facility] Byvqswldxv6279 [place] [address]Dr. Farhat Leal LYMPH # 1.5 103/ul Normal 1.2-3.8 [facility] Comment on above: Performed By: #### C BC ####[facility] Vgoeizmacc5826[address] [place], [place] [address]Dr. Farhat Leal Lymphocytes/100 WBC (Bld) 17.2 % Critically low 20.5-60.0 [facility] Comment on above: Performed By: #### C BC ####[facility] Nyyuxrlpxd2705 [place] [id number]. Farhat Leal MANUAL DIFF REQ NO Normal The [facility] Comment on above: Performed By: #### C BC ####[facility] Vzmsuetbcg9493 [place] [id number]. Farhat Leal MCH (RBC) [Entitic mass] 31.7 pg Normal 25.9-34.0 [facility] Comment on above: Performed By: #### C BC ####[facility] Jaypxqnocu3337 [place] [id number]. Farhat Leal MCHC (RBC) [Mass/Vol] 33.9 g/dL Normal 29.9-35.2 [facility] Comment on above: Performed By: #### C BC ####[facility] Nfelljgfok4104[address] [place], [place] [address]Dr. Farhat Leal MCV (RBC) [Entitic vol] 93.3 fL Normal 80.0-94.0 [facility] Comment on above: Performed By: #### C BC ####[facility] Ezfscmwjxr475[address] [place], [place] [address]Dr. Farhat Leal MONO # 1.2 103/ul Critically high 0.3-0.8 The [facility] Comment on above: Performed By: #### C BC ####[facility] Ljqmlkcrgd6359 [place] [address]Dr. Farhat Leal Monocytes/100 WBC (Bld) 13.7 % Critically high 1.7-12.0 [facility] Comment on above: Performed By: #### C BC ####[facility] Bdlycufmws3774 [place] [address]Dr. Farhat Leal NEUT # 5.5 103/ul Normal 1.4-6.5 [facility] Comment on above: Performed By: #### C BC ####[facility] Vsyvsvtabg9007 [place] [address]Dr. Farhat Leal Neutrophils/100 WBC (Bld) 65.1 % Normal 43.0-75.0 [facility] Comment on above: Performed By: #### C BC ####[facility] Nphwdcfdkh8739 [place] [address]Dr. Farhat Leal Platelet mean volume (Bld) [Entitic vol] 9.6 fL Normal 9.5-13.5 [facility] Comment on above: Performed By: #### C BC ####[facility] Nlndaawimp7416 [place] [address]Dr. Farhat Leal PLT 163 103/ul Normal 150-450 [facility] Comment on above: Performed By: #### C BC ####[facility] Rquboehwtb4833 [place] [address]Dr. Farhat Leal RBC 4.20 106/ul Critically low 4.70-6.10 [facility] Comment on above: Performed By: #### C BC ####[facility] Nkttnynqlt756[address] [place], [place] [address]Dr. Farhat Leal WBC 8.4 103/ul Normal 4.0-11.0 [facility] Comment on above: Performed By: #### C BC ####[facility] Ljcpnjidlm878[address] [place], [place] [address]Dr. Farhat Leal POINT OF CARE GLUCOSEon Glucose [Mass/Vol] 300 mg/dL Critically high 74-106 [facility] Comment on above: Performed By: #### P OCGLUC ####[facility] Doddycxwqn0185[address] [place], [place] [address]Dr. Farhat Leal POTASSIUMon 09-19-2021 Potassium [Moles/Vol] 4.9 mmol/L Normal 3.5-5.1 [facility] Comment on above: Performed By: #### K ####[facility] Lteablboyt7367[address] [place], [place] [address]DrSkylar Farhat eLal PTT HEPARIN MONITORon 2021 aPTT Coag (Bld) [Time] 23.4 s Critically low 39.5-54.2 [facility] Comment on above: Result Comment: repe ated Performed By: #### P TTHEP ####[facility] Sgldpxsnmv0030[address] [place], [place] [address]Dr. Farhat Elvis aPTT Coag (Bld) [Time] 101.2 s Critically high 39.5-54. 2 [facility] Comment on above: Performed By: #### P TTHEP ####[facility] Rcjycbwfyj6816[address] [place], [place] [address]Dr. Farhat Elvis aPTT Coag (Bld) [Time] 81.0 s Critically high 39.5-54. 2 [facility] Comment on above: Result Comment: Test Repeated. Critical Value Verified Performed By: #### P TTHEP ####[facility] Inidhtaeud250927 [address] [place], [place] [address]Dr. Madelynlorri Leal CBC AUTO DIFFon 09-18-2021 BASO # 0.0 103/ul Normal 0.0-0.1 [facility] Comment on above: Performed By: #### C BC ####[facility] Fznxgcqewt2664[address] [place], [place] [address]Dr. Farhat Leal Basophils/100 WBC (Bld) 0.4 % Normal 0.2-2.0 [facility] Comment on above: Performed By: #### C BC ####[facility] Wcxljjools833[address] [place], [place] [address]DrSkylar Leal EO # 0.1 103/ul Normal 0.0-0.7 [facility] Comment on above: Performed By: #### C BC ####[facility] Dbcgcqneyj4068[address] [place], [place] [address]Dr. Farhat Leal Eosinophils/100 WBC (Bld) 0.8 % Critically low 0.9-7.0 [facility] Comment on above: Performed By: #### C BC ####[facility] Uihzmgnxtr286[address] [place], [place] [address]Dr. Farhat Leal Erythrocyte distribution width (RBC) [Ratio] 12.4 % Normal 11.0-15.0 [facility] Comment on above: Performed By: #### C BC ####[facility] Ukzwdqqfnf9736[address] [place], [place] [address]DrSkylar Leal Hematocrit (Bld) [Volume fraction] 41.7 % Critically low 42.0-54.0 [facility] Comment on above: Performed By: #### C BC ####[facility] Mbxhqkukil6820 [place] [address]DrSkylar Leal Hemoglobin (Bld) [Mass/Vol] 14.1 g/dL Normal 14.0-18.0 [facility] Comment on above: Performed By: #### C BC ####[facility] Wgmuvlsarc9586 [place] [address]DrSkylar Leal IG # 0.06 10e3/ul Critically high 0.00-0.03 [facility] Comment on above: Performed By: #### C BC ####[facility] Akxnxkmvbf3880 [place] [address]DrSkylar Leal IG % 0.6 % Critically high 0.0-0.5 [facility] Comment on above: Performed By: #### C BC ####[facility] Jvgcfjrjpn1076[address] [place], [place] [address]DrSkylar Leal LYMPH # 0.6 103/ul Critically low 1.2-3.8 [facility] Comment on above: Performed By: #### C BC ####[facility] Wgusdixiuy32232[address] [place], [place] [address]DrSkylar Leal Lymphocytes/100 WBC (Bld) 6.5 % Critically low 20.5-60.0 [facility] Comment on above: Performed By: #### C BC ####[facility] Rkfzorrbgb7837 [place] [address]DrSkylar Leal MANUAL DIFF REQ NO Normal The [facility] Comment on above: Performed By: #### C BC ####[facility] Fixhpoyjos0822 [place] [address]DrSkylar Leal MCH (RBC) [Entitic mass] 31.6 pg Normal 25.9-34.0 [facility] Comment on above: Performed By: #### C BC ####[facility] Fnjdabldoj5968 [place] [address]DrSkylar Leal MCHC (RBC) [Mass/Vol] 33.8 g/dL Normal 29.9-35.2 [facility] Comment on above: Performed By: #### C BC ####[facility] Ocjunptaag7492 [place] [address]DrSkylar Leal MCV (RBC) [Entitic vol] 93.5 fL Normal 80.0-94.0 [facility] Comment on above: Performed By: #### C BC ####[facility] Hzndhzbqdj1122 [place] [address]DrSkylar Leal MONO # 1.0 103/ul Critically high 0.3-0.8 The [facility] Comment on above: Performed By: #### C BC ####[facility] Rrhovjlmen125[address] [place], [place] [address]DrSkylar Leal Monocytes/100 WBC (Bld) 10.4 % Normal 1.7-12.0 [facility] Comment on above: Performed By: #### C BC ####[facility] Tixyfwutpy7956[address] [place], [place] [address]Dr. Farhat Leal NEUT # 7.8 103/ul Critically high 1.4-6.5 The [facility] Comment on above: Performed By: #### C BC ####[facility] Ckutcvwuzb6914[address] [place], [place] [address]DrSkylar Leal Neutrophils/100 WBC (Bld) 81.3 % Critically high 43.0-75.0 [facility] Comment on above: Performed By: #### C BC ####[facility] Xbctggnpeb9908[address] [place], [place] [address]Dr. Farhat Leal Platelet mean volume (Bld) [Entitic vol] 9.9 fL Normal 9.5-13.5 [facility] Comment on above: Performed By: #### C BC ####[facility] Iucjxlgufs[address] [place], [place] [id number]. Farhat Leal PLT 169 103/ul Normal 150-450 [facility] Comment on above: Performed By: #### C BC ####[facility] Bkgteotuwf[address] [place], [place] [id number] Leal RBC 4.46 106/ul Critically low 4.70-6.10 The [facility] Comment on above: Performed By: #### C BC ####[facility] Cdapzbowxl0951 [place] [address]Dr. Farhat Leal WBC 9.6 103/ul Normal 4.0-11.0 [facility] Comment on above: Performed By: #### C BC ####[facility] Orisyaeicf2100 [place] [address]Dr. Farhat Leal BASO # 0.0 103/ul Normal 0.0-0.1 [facility] Comment on above: Performed By: #### C BC ####[facility] Phzvdyvsnu4405[address] [place], [place] [address]Dr. Farhat Leal Basophils/100 WBC (Bld) 0.4 % Normal 0.2-2.0 [facility] Comment on above: Performed By: #### C BC ####[facility] Slqfcdslrf4459[address] [place], [place] [address]Dr. Farhat Leal EO # 0.1 103/ul Normal 0.0-0.7 [facility] Comment on above: Performed By: #### C BC ####[facility] Lqexlsqbne2665[address] [place], [place] [address]Dr. Farhat Leal Eosinophils/100 WBC (Bld) 1.1 % Normal 0.9-7.0 [facility] Comment on above: Performed By: #### C BC ####[facility] Usvbrfptyb7724[address] [place], [place] [address]Dr. Farhat Leal Erythrocyte distribution width (RBC) [Ratio] 12.6 % Normal 11.0-15.0 [facility] Comment on above: Performed By: #### C BC ####[facility] Nwhexmwacd002[address] [place], [place] [address]Dr. Farhat Leal Hematocrit (Bld) [Volume fraction] 40.8 % Critically low 42.0-54.0 [facility] Comment on above: Performed By: #### C BC ####[facility] Fbbnevdlop5540[address] [place], [place] [address]Dr. Farhat Elvis Hemoglobin (Bld) [Mass/Vol] 13.6 g/dL Critically low 14.0-18.0 [facility] Comment on above: Performed By: #### C BC ####[facility] Sfpnubadwe1182 [place] [address]DrSkylar Leal IG # 0.08 10e3/ul Critically high 0.00-0.03 [facility] Comment on above: Performed By: #### C BC ####[facility] Ojrkvgkujt0756 [place] [address]DrSkylar Leal IG % 0.9 % Critically high 0.0-0.5 The [facility] Comment on above: Performed By: #### C BC ####[facility] Vdzakvwemz3706[address] [place], [place] [address]DrSkylar Leal LYMPH # 0.8 103/ul Critically low 1.2-3.8 [facility] Comment on above: Performed By: #### C BC ####[facility] Wohaoavgjx5186[address] [place], [place] [address]DrSkylar Leal Lymphocytes/100 WBC (Bld) 8.7 % Critically low 20.5-60.0 [facility] Comment on above: Performed By: #### C BC ####[facility] Mxewxpqhwz2419[address] [place], [place] [address]DrSkylar Leal MANUAL DIFF REQ NO Normal [facility] Comment on above: Performed By: #### C BC ####[facility] Blzqgejxvd9980[address] [place], [place] [address]DrSkylar Leal MCH (RBC) [Entitic mass] 31.6 pg Normal 25.9-34.0 [facility] Comment on above: Performed By: #### C BC ####[facility] Louuyzhgqy586[address] [place], [place] [address]DrSkylar Leal MCHC (RBC) [Mass/Vol] 33.3 g/dL Normal 29.9-35.2 [facility] Comment on above: Performed By: #### C BC ####[facility] Rtxerbcuxq7078[address] [place], [place] [address]DrSkylar Leal MCV (RBC) [Entitic vol] 94.9 fL Critically high 80.0-94.0 [facility] Comment on above: Performed By: #### C BC ####[facility] Rzwpwufuol7102 [place] [address]DrSkylra Farhat Leal MONO # 1.0 103/ul Critically high 0.3-0.8 The [facility] Comment on above: Performed By: #### C BC ####[facility] Jmdkrkshwg597[address] [place], [place] [address]Dr. Farhat Leal Monocytes/100 WBC (Bld) 11.3 % Normal 1.7-12.0 [facility] Comment on above: Performed By: #### C BC ####[facility] Styypiasiu8037[address] [place], [place] [address]DrSkylar Joshilorri Leal NEUT # 6.9 103/ul Critically high 1.4-6.5 The [facility] Comment on above: Performed By: #### C BC ####[facility] Okjbscntem2209[address] [place], [place] [address]Dr. Farhta Leal Neutrophils/100 WBC (Bld) 77.6 % Critically high 43.0-75.0 [facility] Comment on above: Performed By: #### C BC ####[facility] Urxrgpyfww9335[address] [place], [place] [address]Dr. Farhat Leal Platelet mean volume (Bld) [Entitic vol] 9.7 fL Normal 9.5-13.5 [facility] Comment on above: Performed By: #### C BC ####[facility] Vrgqiljnta8175[address] [place], [place] [address]Dr. Farhat Leal PLT 171 103/ul Normal 150-450 [facility] Comment on above: Performed By: #### C BC ####[facility] Lmsodsgdue8394[address] [place], [place] [address]DrSkylar Leal RBC 4.30 106/ul Critically low 4.70-6.10 The [facility] Comment on above: Performed By: #### C BC ####[facility] Jgfwfhaauq2099[address] [place], [place] [address]Dr. Farhat Leal WBC 8.9 103/ul Normal 4.0-11.0 [facility] Comment on above: Performed By: #### C BC ####[facility] Uevxvvlugg2772 [place] [address]Dr. Farhat Elvis Covid-19 PCR (CVDTB)on SARS-CoV-2 (COVID-19) RNA JOSH+probe Ql (Unsp spec) Not detected Normal NOT DETECTED [facility] Comment on above: Result Comment: [...] for this test is supported by the [place] of [employer] and Human Service's declaration that [...] be used). Performed By: #### C VDTB ####[facility] Ivhijorbzo7417 [place] [address]Dr. Farhat Leal PROF 14(COMP METB)on 022 Albumin [Mass/Vol] 2.6 g/dL Critically low 3.4-5.0 Th e [facility] Comment on above: Performed By: #### C MP ####[facility] Slelmiozyn0237 [place] [address]Dr. Farhat Leal Albumin/Globulin [Mass ratio] 0.7 {ratio} Normal [facility] Comment on above: Performed By: #### C MP ####[facility] Elgughyblw4464 [place] [id number]. Farhat Leal ALP [Catalytic activity/Vol] 88 U/L Normal 46-116 [facility] Comment on above: Performed By: #### C MP ####[facility] Dqglajenmq5119 [place] [id number]. Farhat Leal ALT [Catalytic activity/Vol] 15 U/L Critically low 16-63 [facility] Comment on above: Performed By: #### C MP ####[facility] Dweqmzbapk5194 [place] [phone]. Farhat Leal Anion gap [Moles/Vol] 11.7 mmol/L Normal [facility] Comment on above: Performed By: #### C MP ####[facility] Aqgjecspft8545 [place] [phone]. Farhat Elvis AST [Catalytic activity/Vol] 25 U/L Normal 15-37 [facility] Comment on above: Performed By: #### C MP ####[facility] Ezybolkymh4512 [place] [address]Dr. Farhat Elvis Bilirubin [Mass/Vol] 0.6 mg/dL Normal 0.2-1.0 [facility] Comment on above: Performed By: #### C MP ####[facility] Dmlvbfrreb1626 [place] [id number]. Farhat Elvis Calcium [Mass/Vol] 8.9 mg/dL Normal 8.5-10.1 [facility] Comment on above: Performed By: #### C MP ####[facility] Rvqiscgrfu5838 [place] [phone]. Farhat Elvis Chloride [Moles/Vol] 93 mmol/L Critically low 98-107 [facility] Comment on above: Performed By: #### C MP ####[facility] Ylunbzlaaq6174 [place] [phone]. Farhat Leal CO2 [Moles/Vol] 28.9 mmol/L Normal 21.0-32.0 [facility] Comment on above: Performed By: #### C MP ####[facility] Jopadunexs6635 [place] [phone]. Madelynlorri Leal Creatinine [Mass/Vol] 2.09 mg/dL Critically high 0.70-1.30 [facility] Comment on above: Performed By: #### C MP ####[facility] Xyjdefvwzv1430 [place] [phone]. Farhat Elvis EGFR-AF BAHAMIAN 38 mL/min/1.73m2 Critically low >=60 [facility] Comment on above: Performed By: #### C MP ####[facility] Noznjxqsyg7160 [place] [phone]. Farhat Elvis EGFR-NON AF BAHAMIAN 31 mL/min/1.73m2 Critically low >=60 [facility] Comment on above: Performed By: #### C MP ####[facility] Nsvutbamaz2498 [place] [phone]. Farhat Leal Globulin (S) [Mass/Vol] 3.7 g/dL Normal [facility] Comment on above: Performed By: #### C MP ####[facility] Vjbpkkxtlo3598 [place] [address]Dr. Farhat Leal Glucose [Mass/Vol] 214 mg/dL Critically high 74-106 T [facility] Comment on above: Performed By: #### C MP ####[facility] Uzjfzsnrih3399 [place] [phone]. Farhat Leal Potassium [Moles/Vol] 5.6 mmol/L Critically high 3.5-5.1 [facility] Comment on above: Performed By: #### C MP ####[facility] Hiqywenvmk6246 [place] [phone]. Farhat Leal Protein [Mass/Vol] 6.3 g/dL Critically low 6.4-8.2 [facility] Comment on above: Performed By: #### C MP ####[facility] Bbnyjmeczq4172 [place] [phone]. Farhat Leal Sodium [Moles/Vol] 128 mmol/L Critically low 136-145 [facility] Comment on above: Performed By: #### C MP ####[facility] Lzwyujhndp7014 [place] [phone]. Farhat Leal Urea nitrogen [Mass/Vol] 65.0 mg/dL Critically high 7.0-18.0 [facility] Comment on above: Performed By: #### C MP ####[facility] Yomrmldycv3838 [place] [phone]. Farhat Leal Urea nitrogen/Creatinine [Mass ratio] 31.1 mg/mg Normal [facility] Comment on above: Performed By: #### C MP ####[facility] Mdoabxydgp7965 [place] [phone]. Farhat Leal Albumin [Mass/Vol] 2.5 g/dL Critically low 3.4-5.0 [facility] Comment on above: Performed By: #### T MYRIAM, CMP ####[facility] Gsynmoslhq4993 [place] [address]Dr. Farhat Leal Albumin/Globulin [Mass ratio] 0.7 {ratio} Normal [facility] Comment on above: Performed By: #### T MYRIAM, CMP ####[facility] Pwjkxilxnv2194[address] [place], [place] [address]Dr. Farhat Leal ALP [Catalytic activity/Vol] 83 U/L Normal 46-116 [facility] Comment on above: Performed By: #### T MYRIAM, CMP ####[facility] Jvajispllx6218[address] [place], [place] [address]Dr. Farhat Leal ALT [Catalytic activity/Vol] 16 U/L Normal 16-63 [facility] Comment on above: Performed By: #### T MYRIAM, CMP ####[facility] Eqnlmwbrrx5130[address] [place], [place] [address]Dr. Farhat Leal Anion gap [Moles/Vol] 9.7 mmol/L Normal [facility] Comment on above: Performed By: #### T MYRIAM, CMP ####[facility] Qurewibimf59112[address] [place], [place] [address]Dr. Farhat Leal AST [Catalytic activity/Vol] 27 U/L Normal 15-37 [facility] Comment on above: Performed By: #### T SH, CMP ####[facility] Adfbfrcedm3096[address] [place], [place] [address]Dr. Farhat Leal Bilirubin [Mass/Vol] 0.5 mg/dL Normal 0.2-1.0 [facility] Comment on above: Performed By: #### T SH, CMP ####[facility] Jcyeagkpje3613 [place] [address]Dr. Farhat Leal Calcium [Mass/Vol] 8.8 mg/dL Normal 8.5-10.1 [facility] Comment on above: Performed By: #### T SH, CMP ####[facility] Jezqglilkd6158[address] [place], [place] [address]Dr. Farhat Leal Chloride [Moles/Vol] 95 mmol/L Critically low 98-107 [facility] Comment on above: Performed By: #### T SH, CMP ####[facility] Fsqpizrrij105[address] [place], [place] [address]Dr. Farhat Leal CO2 [Moles/Vol] 30.5 mmol/L Normal 21.0-32.0 [facility] Comment on above: Performed By: #### T SH, CMP ####[facility] Jhymfxjsor912[address] [place], [place] [address]Dr. Farhat Leal Creatinine [Mass/Vol] 2.18 mg/dL Critically high 0.70-1.30 [facility] Comment on above: Performed By: #### T SH, CMP ####[facility] Lutrdkhbak712[address] [place], [place] [address]Dr. Frahat Leal EGFR-AF BAHAMIAN 36 mL/min/1.73m2 Critically low >=60 [facility] Comment on above: Performed By: #### T SH, CMP ####[facility] Qsasgtsxlo6638[address] [place], [place] [address]Dr. Farhat Leal EGFR-NON AF BAHAMIAN 30 mL/min/1.73m2 Critically low >=60 [facility] Comment on above: Performed By: #### T SH, CMP ####[facility] Bsgytpjdgt99[address] [place], [place] [address]Dr. Farhat Leal Globulin (S) [Mass/Vol] 3.5 g/dL Normal [facility] Comment on above: Performed By: #### T SH, CMP ####[facility] Dtodqutopr020[address] [place], [place] [address]Dr. Farhat Leal Glucose [Mass/Vol] 141 mg/dL Critically high 74-106 T [facility] Comment on above: Performed By: #### T SH, CMP ####[facility] [address] [place], [place] [address]Dr. Farhat Leal Potassium [Moles/Vol] 5.2 mmol/L Critically high 3.5-5.1 [facility] Comment on above: Performed By: #### T SH, CMP ####[facility] [address] [place], [place] [address]Dr. Farhat Leal Protein [Mass/Vol] 6.0 g/dL Critically low 6.4-8.2 [facility] Comment on above: Performed By: #### T MYRIAM, CMP ####[facility] [address] [place], [place] [address]Dr. Farhat Leal Sodium [Moles/Vol] 130 mmol/L Critically low 136-145 [facility] Comment on above: Performed By: #### T MYRIAM, CMP ####[facility] [address] [place], [place] [address]Dr. Farhat Leal Urea nitrogen [Mass/Vol] 63.0 mg/dL Critically high 7.0-18.0 [facility] Comment on above: Performed By: #### T MYRIAM, CMP ####[facility] [address] [place], [place] [address]Dr. Farhat Leal Urea nitrogen/Creatinine [Mass ratio] 28.9 mg/mg Normal [facility] Comment on above: Performed By: #### T MYRIAM, CMP ####[facility] [address] [place], [place] [address]Dr. Farhat Leal PROTIMEon 09-18-2021 INR Coag (PPP) [Relative time] 1.06 {INR} Normal [facility] Comment on above: Performed By: #### P T, PTT ####[facility] [address] [place], [place] [address]Dr. Farhat Leal INR GUIDELINES SEE BELOW Normal [facility] Comment on above: Result Comment: MALINA RED INR: 2.0 - 3.0 CONDITIONS NOT LISTED BELOW 2.5 - 3.5 FOR PROSTHETIC HEART VALVE REPLACEMENT 2.5 - 3.5 RECURRENT THROMBOSIS Performed By: #### P T, PTT ####[facility] [address] [place] [address]Dr. Farhat Leal PT Coag (PPP) [Time] 11.4 s Normal 9.0-11.6 [facility] Comment on above: Performed By: #### P T, PTT ####[facility] [address] [place] [address]Dr. Farhat Leal PTTon 09-18-2021 aPTT Coag (Bld) [Time] 27.9 s Normal 22.3-36.2 [facility] Comment on above: Performed By: #### P T, PTT ####[facility] [address] [place] [address]Dr. Farhat Leal TSHon 09-18-2021 TSH 7.099 uIU/mL Critically high 0.358-3.740 [facility] Comment on above: Performed By: #### T SH, CMP ####[facility] [address] [place], [place] [address]Dr. Farhat Leal US SALOME DOP LEG RTon 09-19-19 22 US SALOME DOP LEG RT Normal [facility] XR CHEST 1 Von 09-18-2021 XR CHEST 1 V Normal [facility] XR HIP RT 2 3V W PELVISon XR HIP RT 2 3V W PELVIS Normal [facility] Vital Signs Date Time Vital Sign Value Performing Clinician Facility 03-18-2023 13:37-0500 Body temperature 98.01 [degF] Morgan Unirisx Work Phone: [facility] 03-18-2023 13:37-0500 Diastolic blood pressure 64 mm[Hg] Morgan Unirisx Work Phone: [facility] 03-18-2023 13:37-0500 Heart rate 72 /min Morgan Unirisx Work Phone: [facility] 03-18-2023 13:37-0500 SaO2% (BldA) [Mass fraction] 98 % Morgan Unirisx Work Phone: [facility] 03-18-2023 13:37-0500 Systolic blood pressure 118 mm[Hg] Ni Cabrera DO Work Phone: [facility] 07-20-2022 13:35-0400 Body temperature 97.4 [degF] DO Devon Ball Work Phone: [facility] 07-20-2022 13:35-0400 Diastolic blood pressure 50 mm[Hg] DO Devon Ball Work Phone: [facility] 07-20-2022 13:35-0400 Heart rate 67 /min DO Devon Ball Work Phone: [facility] 07-20-2022 13:35-0400 Respiratory rate 20 /min DO Devon Ball Work Phone: [facility] 07-20-2022 13:35-0400 Systolic blood pressure 98 mm[Hg] DO Devon Ball Work Phone: [facility] 06-29-2022 14:46-0400 Body height 193.04 cm DO Devon Ball Work Phone: [facility] 02-26-2022 13:11-0500 Body temperature 96.6 [degF] Hina Peterson MD Work Phone: [facility] 02-26-2022 13:11-0500 Diastolic blood pressure 75 mm[Hg] Hina Peterson MD Work Phone: [facility] 02-26-2022 13:11-0500 Heart rate 75 /min Hina Peterson MD Work Phone: [facility] 02-26-2022 13:11-0500 Systolic blood pressure 88 mm[Hg] Hina Peterson MD Work Phone: [facility] 02-05-2022 08:29-0500 Body temperature 96.69 [degF] [facility] Work Phone: [facility] 02-05-2022 08:29-0500 Diastolic blood pressure 42 mm[Hg] [facility] Work Phone: [facility] 02-05-2022 08:29-0500 Heart rate 79 /min [facility] Work Phone: [facility] 02-05-2022 08:29-0500 SaO2% (BldA) [Mass fraction] 100 % [facility] Work Phone: [facility] 02-05-2022 08:29-0500 Systolic blood pressure 72 mm[Hg] [facility] Work Phone: [facility] 01-12-2022 11:00-0500 Diastolic blood pressure 54 mm[Hg] Alissa Major DIRECTOR OF DATABASE MARKETING.LCSW Work Phone: [facility] 01-12-2022 11:00-0500 Heart rate 88 /min Alissa Major DIRECTOR OF DATABASE MARKETING.LCSW Work Phone: [facility] 01-12-2022 11:00-0500 SaO2% (BldA) [Mass fraction] 93 % Alissa Major DIRECTOR OF DATABASE MARKETING.LCSW Work Phone: [facility] 01-12-2022 11:00-0500 Systolic blood pressure 96 mm[Hg] Alissa Major DIRECTOR OF DATABASE MARKETING.LCSW Work Phone: [facility] 01-12-2022 10:12-0500 Body temperature 97.9 [degF] Alissa Major DIRECTOR OF DATABASE MARKETING.LCSW Work Phone: [facility] 01-12-2022 10:12-0500 Respiratory rate 18 /min Alissa Major DIRECTOR OF DATABASE MARKETING.LCSW Work Phone: [facility] 11-17-2021 15:59-0400 Body height 193 cm No Reeder DO Work Phone: [facility] 11-17-2021 15:59-0400 Body weight 111.58 kg No Reeder DO Work Phone: [facility] 11-17-2021 15:59-0400 Diastolic blood pressure 59 mm[Hg] No Reeder DO Work Phone: [facility] 11-17-2021 15:59-0400 Heart rate 86 /min No Reeder DO Work Phone: [facility] 11-17-2021 15:59-0400 SaO2% (BldA) [Mass fraction] 97 % No Reeder DO Work Phone: [facility] 11-17-2021 15:59-0400 Systolic blood pressure 104 mm[Hg] No Reeder DO Work Phone: [facility] Encounters Encounter Date Encounter Type Care Provider Facility Start: 04-11-2023 End: 04-11-2023 ambulatory Devon Moreira Other [facility] Other Start: 04-11-2023 Telephone encounter Devon NUNEZ [facility] Start: 03-18-2023 End: 03-18-2023 ambulatory NI CABRERA Not Available Start: 03-18-2023 End: 03-18-2023 Office outpatient visit 25 minutes Ni Cabrera DO Work Phone: [facility] [address] Comment on above: 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 ([facility]/HCC) (Primary Dx); 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 ([facility]); Type 1 diabetes mellitus with nephropathy ([facility]); Type 1 diabetes mellitus with hypoglycemia and without coma ([facility]); 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 ([facility]/HCC) Start: 02-17-2023 End: 02-17-2023 ambulatory Devon Moreira Other [facility] Other Start: 02-17-2023 Telephone encounter Devon Moreira MAYRA Anais [facility] Start: 01-14-2023 End: 01-14-2023 ambulatory Devon Moreira Other [facility] Other Start: 01-14-2023 Sbs nursing facil c are/day minor complj 15 min [facility] Start: 12-10-2022 End: 12-10-2022 ambulatory Devon Moreira Other [facility] Other Start: 12-10-2022 Sbsq nursing facil c are/day minor complj 15 min [facility] Start: 11-12-2022 End: 11-12-2022 ambulatory Devon Moreira Other [facility] Other Start: 11-12-2022 Sbsq nursing facil c are/day minor complj 15 min [facility] Start: 10-16-2022 Refill Asia Pike MD Work Phone: [facility] Comment on above: Med Change Request Start: 10-12-2022 End: 10-12-2022 ambulatory Devon Moreira Other [facility] Other Start: 10-12-2022 Telephone encounter Devon Lillie [facility] Start: 10-08-2022 End: 10-08-2022 ambulatory Devon Moreira Other [facility] Other Start: 10-08-2022 Sbsq nursing facil c are/day new problem 25 min [facility] Start: 09-22-2022 [facility] Comment on above: Rx Refills Start: 09-10-2022 End: 09-10-2022 ambulatory Devon Moreira Other [facility] Other Start: 09-10-2022 Sbsq nursing facil c are/day new problem 25 min [facility] Start: 09-09-2022 End: 09-09-2022 ambulatory [facility] Start: 08-06-2022 End: 08-06-2022 ambulatory Devon Moreira Other [facility] Other Start: 08-06-2022 Sbsq nursing facil c are/day new problem 25 min [facility] Start: 07-22-2022 End: 07-22-2022 ambulatory Devon Moreira Other [facility] Other Start: 07-22-2022 Telephone encounter Devon Moreira MAYRA G [facility] Start: 07-20-2022 End: 07-20-2022 ambulatory Sadia Aguilar Facility:[facility] Start: 07-20-2022 End: 07-20-2022 ambulatory DO Devon Moreira Work Phone: [facility] Work Phone: Start: 07-20-2022 End: 07-20-2022 Discharged Recurring DO Devon Moreira Work Phone: [facility] Work Phone: Start: 07-13-2022 End: 07-13-[address] DEVON MOREIRA Facility:[facility] Start: 07-10-2022 End: 07-10-[address] DEVON MOREIRA Facility:[facility] Start: 07-03-2022 End: 07-03-[address] DEVON MOREIRA Facility:[facility] Start: 06-26-2022 End: 06-26-[address] DEVON MOREIRA Facility:[facility] Start: 06-26-2022 End: 06-26-[address] DEVON MOREIRA Facility:[facility] Start: 06-25-2022 End: 06-25-2022 ambulatory Devon Moreira Other [facility] Other Start: 06-25-2022 Sbsq nursing facil c are/day minor complj 15 min Devon Moreira [facility] Start: 06-19-2022 End: 06-19-[address] DEVON MOREIRA Facility:[facility] Start: 06-15-2022 End: 07-15-2022 ambulatory SHAIKH Kate MURRAY Facility:[facility] Start: 06-12-2022 End: 06-12-[address] DOCTOR WALSH Facility:[facility] Start: 06-05-2022 Sbsq nursing facil c are/day new problem 25 min [facility] Start: 06-05-2022 End: 06-05-[address] DEVON MOREIRA [facility] Other Start: 05-29-2022 End: 05-29-[address] DEVON MOREIRA Facility:[facility] Start: 05-22-2022 End: 05-22-[address] DEVON MOREIRA Facility:[facility] Start: 05-20-2022 End: 05-20-[address] DEVON MOREIRA Facility:[facility] Start: 05-18-2022 End: 06-12-2022 ambulatory SHAIKH Kate MURRAY Facility:[facility] Start: 05-15-2022 End: 05-15-[address] DEVON MOREIRA Facility:[facility] Start: 05-13-2022 End: 05-13-2022 ambulatory Van Olivarez DIRECTOR OF DATABASE MARKETING.LCSW Work Phone: [facility] Comment on above: results Start: 05-13-2022 E-mail encounter fro m caregiver Van Olivarez DIRECTOR OF DATABASE MARKETING.LCSW Work Phone: [facility] Start: 05-08-2022 End: 05-08-[address] DEVON MOREIRA Facility:[facility] Start: 05-07-2022 End: 05-07-2022 ambulatory Devon Moreira Other [facility] Other Start: 05-07-2022 Sbs nursing facil c are/day new problem 25 min Devon Moreira [facility] Start: 05-06-2022 End: 05-06-[address] [...] Facility:[facility]1 Start: 04-02-2022 ambulatory Van cortes DIRECTOR OF DATABASE MARKETING.LCSW Work Phone: [facility] Start: 04-01-2022 End: 04-01-[address] DEVON MOREIRA Facility:[facility] Start: 03-22-2022 Anne Pike MD Work Phone: [facility] Comment on above: Med Change Request Start: 03-21-2022 ambulatory SHAIKH Kate UMRRAY Facilit y:H1 Start: 03-11-2022 End: 03-11-[address] DEVON MOREIRA Facility:[facility]1 Start: 03-10-2022 End: 03-10-2022 ambulatory [facility] Start: 02-27-2022 Refill Samira S[facility] Comment on above: Rx Refills Start: 02-26-2022 End: 02-26-2022 ambulatory DEVON MOREIRA Facility:[facility] Start: 02-26-2022 End: 02-26-2022 Patient [...] Start: 02-25-2022 End: 03-17-2022 ambulatory SHAIKH Kate MURARY Facility:[facility]1 Start: 02-19-2022 Telephone encounter [facility] Comment on above: Results (Tacro 23.9) Start: 02-18-2022 Telephone encounter Devon Moreira DO Work Phone: [facility] Comment on above: Appointment Refill Request Start: 02-05-2022 End: 02-06-[address] DEVON MOREIRA Facility:[facility]1 Start: 02-05-2022 End: 02-06-2022 [facility] Start: 02-05-2022 End: 02-05-2022 Patient encounter procedure [facility] Work Phone: [facility] Comment on above: Kidney replaced by t ransplant (Primary Dx); 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; [facility] current use of immunosuppressive drug Start: 01-26-2022 End: 01-26-[address] DEVON MOREIRA Facility:[facility] Start: 01-20-2022 Telephone encounter Van Olivarez APRN.CNP Work Phone: [facility] [place] Comment on above: Results Start: 01-19-2022 End: 01-19-[address] DEVON MOREIRA Facility:[facility]1 Start: 01-16-2022 ambulatory SHAIKH Kate MURRAY Facilit y:H1 Start: 01-12-2022 End: 01-12-2022 Subsequent hospital visit by physician Alissa Chavira APRN.LCSW Work Phone: Angio Comment on above: ILIANA (acute kidney in jury) (HCC) [N17.9] Start: 12-30-2021 End: 12-30-2021 ambulatory Paresh Fonseca MD Work Phone: Infectious Disease Comment on above: MRSA bacteremia (Arabella munira Dx); Diabetic foot ulcer with osteomyelitis (HCC) Start: 12-30-2021 End: 12-30-2021 Telemedicine consultation with patient Paresh Fonseca MD Work Phone: [facility] Start: 12-29-2021 End: 12-29-2021 ambulatory [...] Start: 12-08-2021 Orders Only Artur Basiliomisael charles DIRECTOR OF DATABASE MARKETING.LCSW Work Phone: [facility] Comment on above: Kidney replaced by t ransplant (Primary Dx) Start: 12-07-2021 ambulatory Paresh Fonseca MD Work Phone: [facility] Comment on above: CoPat Start (copat s top 12/27/21) Start: 12-05-2021 Telephone encounter Paresh Fonseca MD Work Phone: Infectious Disease Comment on above: Patient Update (evus held discussion/) Start: 12-01-2021 Follow-up encounter [facility] Provider [facility] Start: 12-01-2021 Patient encounter procedure [facility] Prov ider [facility] Department Start: 11-23-2021 End: 11-28-2021 [...] management encounter Start: 11-14-2021 End: 11-15-2021 ambulatory [facility] Sebastian [facility] Facility:H1 Start: 10-24-2021 End: 11-15-2021 ambulatory SHAIKH Kate MURRAY Facility:[facility]1 Start: 10-22-2021 End: 10-23-2021 ambulatory [facility] Sebastian [facility] Facility:H1 Start: 10-06-2021 ambulatory Van cortes DIRECTOR OF DATABASE MARKETING.LCSW Work Phone: Kidney Medicine [facility] Start: 09-30-2021 Anne Pike MD Work Phone: [facility]ney [facility] Comment on above: Refill Request Start: 09-19-2021 End: 09-24-2021 Evaluation and management of inpatient DR PROSPER LEES Facility:H1 Start: 09-18-2021 End: 09-19-[address] DEVON MOREIRA Facility:[facility]1 Start: 07-11-2021 Refill Asia Pike MD Work Phone: [facility]ney [facility] Comment on above: Refill Request Start: 06-05-2021 Telephone encounter Van Kuldeep Olivarez DIRECTOR OF DATABASE MARKETING.LCSW Work Phone: Kidney [facility] Comment on above: Results Start: 02-05-2021 End: 02-13-2021 ambulatory UNKNOWN PROVIDER Facility:[facility] Procedures Date Procedure Procedure Detail Performing Clinician Start: 03-18-2023 Hemoglobin glycosyla rk a1c Ni Cabrera DO Work Phone: Start: 02-05-2022 Creatinine other source Asia Pike MD Work Phone: Start: 02-05-2022 Urnls dip stick/tabl et rgnt auto w/o microscopy Asia Pike MD Work Phone: Start: 01-12-2022 Prothrombin time Alissa Chavira DIRECTOR OF DATABASE MARKETING.LCSW Work Phone: Start: 12-01-2021 PACEMAKER CLINIC CHECK [facility] Provider Start: 11-29-2021 Microscopic examinat ion of blood, culture DR PROSPER LEES Comment on above: Performed By: #### B [id number] ####[facility] [address] [place] [address]Dr. Farhat Leal Start: 11-27-2021 Insertion of Infusio [...] transplant KIDNEY TRANSPLANT STATUS Van Olivarez DIRECTOR OF DATABASE MARKETING.LCSW Work Phone: History of renal transplant Kidney replaced by transplant Artur Garciajasvir DIRECTOR OF DATABASE MARKETING.LCSW Work Phone: History of renal transplant Kidney replaced by transplant [facility] Work Phone: History of renal transplant Devon Moreira Other History of renal transplant Kidney replaced by transplant Asia Pkie MD Work Phone: History of renal transplant Dveon Moreira Other Plan of Treatment Date Care Activity Detail Author Start: 06-17-2023 End: 06-17-2023 Patient encounter procedure 06/17/2023 2:15 PM EDT Office Visit [facility] [address] [place] [address] Ni Cabrera DO [address] [facility] [address] [place] [address] [facility] [address] Start: 06-16-2023 Hemoglobin A1c measurement Diabetes: Hemoglobin A1C [facility] Start: 02-26-2023 BP CONTROLLED (<130/80) BP CONTROLLE D (<130/80) [facility] Start: 02-05-2023 BP CONTROLLED (<130/80) BP CONTROLLE D (<130/80) [facility] Start: 01-12-2023 BP CONTROLLED (<130/80) BP CONTROLLE D (<130/80) [facility] Start: 11-17-2022 BP CONTROLLED (<130/80) BP CONTROLLE D (<130/80) [facility] Start: 10-16-2022 Influenza vaccination C [facility] Start: 05-15-2022 Medicare Annual Wellness (AWV) Medicare Annual Wellness (AWV) [facility] Start: 04-08-2022 BP CONTROLLED (<130/80) BP CONTROLLE D (<130/80) [facility] Start: 02-15-2022 ADVANCE DIRECTIVE DISCUSSION ADVANCE DIRECTIVE DISCUSSION [facility] Start: 02-15-2022 DEPRESSION ASSESSMENT DEPRESSION ASS ESSMENT [facility] Start: 02-05-2022 COVID-19 VACCINE (5 - Yung risk series) COVID-19 VACCINE (5 - Yung risk series) [facility] Start: 11-27-2021 COVID-19 VACCINE (4 - Booster for Yung series) COVID-19 VACCINE (4 - Booster for Yung series) [facility] Start: 11-04-2021 Hemoglobin A1c/Hemoglobin.total in Blood HBA1C [facility] Start: 10-16-2021 Influenza vaccination C [facility] Start: 03-26-2021 COVID-19 VACCINE (3 - Yung risk 3-dose series) COVID-19 VACCINE (3 - Yung risk 3-dose series) [facility] Start: 03-26-2021 COVID-19 VACCINE (3 - Yung risk series) COVID-19 VACCINE (3 - Yung risk series) [facility] Start: 02-15-2021 ADVANCE DIRECTIVE DISCUSSION ADVANCE DIRECTIVE DISCUSSION [facility] Start: 02-15-2021 DEPRESSION ASSESSMENT DEPRESSION ASS ESSMENT [facility] Start: 01-05-2016 Hepatitis B screening URINE AL BUMIN:CREATININE RATIO [facility] Start: 07-31-2015 Pneumococcal Vaccine : 65+ Years (3 - PCV) Pneumococcal Vaccine: 65+ Years (3 - PCV) [facility] Start: 04-06-2015 Hemoglobin A1c/Hemoglobin.total in Blood HBA1C [facility] Start: 11-22-2010 Hepatitis B surface antibody level LDL CHOLESTEROL [facility] Start: 2009 ADULT PREVNAR-13 ADULT PREVNAR-13 Cl [facility] Start: 2009 PNEUMOVAX AGE 65 AND OVER WITH 5YR LOOKBACK (#1) PNEUMOVAX AGE 65 AND OVER WITH 5YR LOOKBACK (#1) [facility] Start: 1994 SHINGRIX VACCINE (1 of 2) SHINGRIX VACCINE (1 of 2) [facility] Start: 10-18-1963 HEPATITIS A (1 of 2 - Risk 2-dose series) HEPATITIS A (1 of 2 - Risk 2-dose series) [facility] Start: 10-18-1963 Hepatitis A Vaccine (1 of 2 - Risk 2-dose series) Hepatitis A Vaccine (1 of 2 - Risk 2-dose series) [facility] Start: 10-18-1963 SHINGRIX VACCINE (1 of 2) SHINGRIX VACCINE (1 of 2) [facility] Start: 10-18-1963 Urine microalbumin profile [facility] Start: 1962 ANNUAL PCP TEAM HATCHERY MANAGER MATTHEW DISEASE VISIT ANNUAL PCP TEAM CHRONIC DISEASE VISIT [facility] Start: 1956 Adult depression screening assessment DEPRESSION SCREENING [facility] Start: 1954 3 comp foot exam completed DIABETIC FOOT EXAM [facility] Start: 1954 Glaucoma screening Diabetes: R etinopathy Screening [facility] Start: 1954 Hepatitis C antibody , confirmatory test DILATED RETINAL EXAM [facility] Start: 1950 Pneumococcal Vaccine : 65+ (1 - PCV) Pneumococcal Vaccine: 65+ (1 - PCV) [facility] Start: 1950 PNEUMOCOCCAL: 65+ (1 - PCV) PNEUMOCOCCAL: 65+ (1 - PCV) [facility] Start: 1945 HEPATITIS A (1 of 2 - Risk 2-dose series) HEPATITIS A (1 of 2 - Risk 2-dose series) [facility] URINALYSIS, REFLEX MICROSCOPIC URINALYSIS, REFLEX MICROSCOPIC Lab Routine Screening for genitourinary condition Ordered: 10/06/2021 [facility] Work Phone: Comment on above: Ordered: 10/06/2021 URINALYSIS, REFLEX MICROSCOPIC URINALYSIS, REFLEX MICROSCOPIC Lab Routine Screening for genitourinary condition Ordered: 04/02/2022 [facility] Work Phone: Comment on above: Ordered: 04/02/2022 End: 11-17-2022 US LEG ARTERIAL PERIPH UNL VAS LAB US LEG ARTERIAL PERIPH UNL VAS LAB Vascular Lab Routine PAD (peripheral artery disease) (HCC) Nonhealing ulcer of heel (HCC) 1 Occurrences starting 11/17/2021 until 11/17/2022 [facility] Work Phone: Comment on above: 1 Occurrences starti ng 11/17/2021 until 11/17/2022 End: 11-17-2022 US LEG VEIN DVT UNL VAS LAB US LEG VEIN DVT UNL VAS LAB Vascular Lab Routine Acute deep vein thrombosis (DVT) of proximal end of right lower extremity (HCC) 1 Occurrences starting 11/17/2021 until 11/17/2022 [facility] Work Phone: Comment on above: 1 Occurrences starti ng 11/17/2021 until 11/17/2022 [facility] & VAS DANIEL BROTHERS CT & VAS [facility] Immunizations Immunization Date Immunization Notes Care Provider Fa cili 12-11-2021 COVID-19 booster vaccine, age 12+ yr, bivalent (PFIZER-BIONTFliqz) Paresh Fonseca MD Work Phone: [facility] 12-11-2021 influenza, high-dose , quadrivalent vaccine (FLUZONE HIGH DOSE QUADRIVALENT) Paresh Fonseca MD Work Phone: [facility] 12-11-2021 influenza virus vaccine, unspecified formulation [facility] 10-24-2021 influenza, high dose seasonal, preservative-free Ni Petznick DO Work Phone: [facility] 01-19-2019 influenza, high dose seasonal, preservative-free Ni Petznick DO Work Phone: [facility] 11-25-2017 Seasonal trivalent influenza vaccine, adjuvanted, preservative free Ni Petznick DO Work Phone: [facility] 11-05-2016 influenza, high dose seasonal, preservative-free Ni Petznick DO Work Phone: [facility] 07-30-2014 pneumococcal polysaccharide vaccine, 23 valent Ni Petznick DO Work Phone: [facility] 03-09-2011 influenza virus vaccine, unspecified formulation Van Olivarez APRN.LCSW Work Phone: [facility] 12-17-2007 influenza virus vaccine, unspecified formulation Van Oliavrez APRN.LCSW Work Phone: [facility] Work Phone: 02-11-2006 influenza virus vaccine, unspecified formulation Van Olivarez DIRECTOR OF DATABASE MARKETING.LCSW Work Phone: [facility] Work Phone: 12-07-2003 influenza virus vaccine, unspecified formulation Van Olivarez DIRECTOR OF DATABASE MARKETING.LCSW Work Phone: [facility] Work Phone: 12-07-2003 pneumococcal polysaccharide vaccine, 23 valent Van Olivarez DIRECTOR OF DATABASE MARKETING.LCSW Work Phone: [facility] Work Phone: NEGATED: Highlighted row has not occurred!12-10-2021 COVID-19 booster vaccine, age 12+ yr, bivalent (Zen99) Paresh Fonseca MD Work Phone: [facility] NEGATED: Highlighted row has not occurred!12-10-2021 influenza, high-dose, quadrivalent vaccine (FLUZONE HIGH DOSE QUADRIVALENT) Paresh Fonseca MD Work Phone: [facility] Payers Date Payer Category Payer Medicare MEDICARE MEDICAR E A AND B [id number] 2009-Present [phone] [address] [address] [place] [address] Medicare [id number] .[id number] 2009 Medicare [id number]. 1.13.159.2.7.3 .861061.315 2009 Unknown [employer] [place] MEDICARE SUPPLEMENT [id number] 2009-Present [phone] [id number] [employer] [place] [address] Indemnity [id number] 1.2.840.206719.1.13.159.2.7.3 .643387.315 2009 Unknown 1.2.840.592507. 1.13.159.2.7.3 .129595.315 2009 Unknown [id number] 2.16.8 40.1.523910.19 2009 Unknown [id number] 1959 Medicare [id number] 1959 Self-pay 1944 Unknown [id number] 2.16.840.1.324374.3.579.2.732 1944 Unknown [id number] 2.16.840.1.382875.3.579.2.593 1944 Unknown [id number] 2.16.840.1.150691.3.579.2.593 1944 Unknown [id number] 2.16.840.1.547809.3.579.2.593 1944 Unknown [id number] 2.16.840.1.038820.3.579.2.593 1944 Unknown [id number] 2.16.840.1.081748.3.579.2.593 1944 Unknown [id number] 2.16.840.1.353383.3.579.2.593 1944 Unknown [id number] 2.16.840.1.198835.3.579.2.593 1944 Unknown [id number] 2.16.840.1.446499.3.579.2.593 1944 Unknown [id number] 2.16.840.1.858756.3.579.2.593 1944 Unknown [id number] 2.16.840.1.957273.3.579.2.593 1944 Unknown [id number] 2.16.840.1.306899.3.579.2.593 1944 Unknown [id number] 2.16.840.1.511053.3.579.2.593 1944 Unknown [id number] 2.16.840.1.511168.3.579.2.593 1944 Unknown [id number] 2.16.840.1.244851.3.579.2.593 1944 Unknown [id number] 2.16.840.1.370544.3.579.2.593 1944 Unknown [id number] 2.16.840.1.913496.3.579.2.593 1944 Unknown [id number] 2.16.840.1.959710.3.579.2.593 1944 Unknown [id number] 2.16.840.1.180881.3.579.2.593 1944 Unknown [id number] 2.16.840.1.139335.3.579.2.593 1944 Unknown [id number] 2.16.840.1.880766.3.579.2.593 1944 Unknown [id number] 2.16.840.1.649305.3.579.2.593 1944 Unknown [id number] 2.16.840.1.821362.3.579.2.593 1944 Unknown [id number] 2.16.840.1.822016.3.579.2.593 1944 Unknown [id number] 2.16.840.1.758166.3.579.2.593 1944 Unknown [id number] 2.16.840.1.439273.3.579.2.593 1944 Unknown [id number] 2.16.840.1.259746.3.579.2.593 1944 Unknown [id number] 2.16.840.1.217607.3.579.2.593 1944 Unknown [id number] 2.16.840.1.265944.3.579.2.593 1944 Unknown [id number] 2.16.840.1.899903.3.579.2.593 1944 Unknown [id number] 2.16.840.1.640718.3.579.2.593 1944 Unknown [id number] 2.16.840.1.277849.3.579.2.593 1944 Unknown [id number] 2.16.840.1.283641.3.579.2.593 1944 Unknown [id number] 2.16.840.1.009922.3.579.2.593 1944 Unknown [id number] 2.16.840.1.015998.3.579.2.593 1944 Unknown [id number] 2.16.840.1.107923.3.579.2.593 1944 Unknown [id number] 2.16.840.1.634715.3.579.2.593 1944 Unknown [id number] 2.16.840.1.942038.3.579.2.593 1944 Unknown [id number] 2.16.840.1.108058.3.579.2.593 1944 Unknown [id number] 2.16.840.1.785437.3.579.2.593 1944 Unknown [id number] 2.16.840.1.053079.3.579.2.593 1944 Unknown [id number] 2.16.840.1.485637.3.579.2.593 1944 Unknown [id number] 2.16.840.1.862179.3.579.2.593 1944 Unknown [id number] 2.16.840.1.123142.3.579.2.593 1944 Unknown [id number] 2.16.840.1.837346.3.579.2.593 1944 Unknown [id number] 2.16.840.1.233859.3.579.2.593 1944 Unknown [id number] 2.16.840.1.387586.3.579.2.593 1944 Unknown [id number] 2.16.840.1.843636.3.579.2.125 9 Medicare Medicare Outpatient [id number] 2T [id number] Unknown [id number] 2.16.840.1.777882.3.579.2.593 Unknown [id number] 2.16.840.1.741715.3.579.2.593 Unknown [id number] 2.16.840.1.639715.3.579.2.531 Social History Date Type Detail Facility Start: 03-09-2011 End: 07-07-2022 Tobacco smoking status NHIS Ex-smoker [facility] Work Phone: End: 02-15-1975 History of tobacco use Current smoker [facility] Work Phone: End: 02-15-1975 History of tobacco use Cigarette Smoker [facility] Work Phone: Start: 04-08-2021 End: 02-26-2022 Alcohol intake Current drinker of alcohol (finding) [facility] Start: 1945 Sex Assigned At Not on file C [facility] Start: 03-09-2011 End: 10-20-2022 Cigarettes smoked current (pack per day) - Reported 1 [facility] Work Phone: Start: 03-09-2011 End: 02-26-2022 Tobacco use and exposure Smokeless tobacco non-user [facility] Start: 09-25-2021 History SDOH Financial 5 [facility] Start: 09-25-2021 History SDOH Food Worry 1 [facility] Start: 09-25-2021 History SDOH Transpo rt Med 2 [facility] Start: 09-14-2021 End: 01-12-2022 Exposure to SARS-CoV-2 (event) Not sure [facility] Start: 02-26-2022 End: 10-20-2022 Sex Assigned At [facility] Work Phone: Start: 1945 Sex Assigned At Male F [facility] How hard is it for y ou to pay for the very basics like food, housing, medical care, and heating Not hard at all [facility] Work Phone: (I/We) worried wheth er (my/our) food would run out before (I/we) got money to buy more. Never true [facility] Work Phone: In the past 12 month s, was there a time when you were not able to pay the mortgage or rent on time? No [facility] Work Phone: Start: 03-18-2023 Alcohol intake Ex-drinker (finding) [facility] How often to you hav e a drink containing alcohol? Never [facility] Medical Equipment Procedure Code Equipment Code Equipment Original Text Equipment Identifier Dates Tray Powerline S urecuff 5fr Polyurethane Catheter 1 Lumen Microintroducer - [id number] Start: 12-06-2021 Clinical Notes 06-05-2021 to [...] (ICD-10 - Z89.619) WC dependent. 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 He states he took insulin breakfast and lunch was served early.They gave him his insulin for lunch but he was not very hungry and didn't eat much States bg levels are fluctuating Diet: [facility] provided food Exercise: none Hypoglycemia: [...] mellitus with stage 3a chronic kidney disease ([facility]/HCC) - Primary Relevant Medications Lantus SoloStar [...] mouth in the morning. documented in this [facility]11-30-2023 Evaluation note* Encounter Date Diagnosis Assessment [...] are maintaining regular scheduled appts with their typesetter apprentice. No bleeding complications Dec, Hyperlipidemia LDL goal [...] (current) use of insulin (ICD-10 - Z79.4) [facility] Other 10-26-2023 Evaluation note* Encounter Date Diagnosis Assessment Notes Treatment Notes Treatment Clinical Notes Nov, Longstanding persistent atrial fibrillation (ICD-10 - I48.11) This patient is in NSR or rate controlled. This patient is anticoagulated to prevent thromboembolic events. They are maintaining regular scheduled appts with their typesetter apprentice. No bleeding complications Nov, Hyperlipidemia LDL goal [...] Z94.0) Monthly labs to transplant clinic Nov, director long term care (current) use of insulin (ICD-10 - Z79.4) [facility] Other 09-28-2023 Evaluation note* Encounter Date [...] are maintaining regular scheduled appts with their typesetter apprentice. No bleeding complications Oct, Type 1 diabetes [...] (current) use of insulin (ICD-10 - Z79.4) [facility] Other 09-01-2023 Miscellaneous Notes* Telephone Encounter - Mary Martinez - 10/16/2022 1:08 PM EDT Pharmacy comment: REQUEST FOR 90 DAYS PRESCRIPTION. DX Code Needed. 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 No bleeding complications Sep, Type 1 diabetes [...] risk for cerebrovascular and cardiovascular disease. Sep, director long term care (current) use of insulin (ICD-10 - Z79.4) Sep, Kidney transplant status (ICD-10 - Z94.0) f/u transplant clinic Continue surveillance labs [facility] Other 08-08-2023 Miscellaneous Notes* Telephone Encounter - Ariadna Mcdowell Tech - 09/22/2022 8:58 AM EDT Pharmacy requesting refills as follows: Requested Prescriptions Pending Prescriptions Disp Refills tacrolimus IR (PROGRAF) 1 mg capsule Sig: Take 1 capsule by mouth DAILY AT 6 PM. Please review and advise. Ariadna Mcdowell, [facility]* Encounter Date Diagnosis Assessment Notes Treatment Notes Treatment Clinical Notes Aug, Longstanding persistent atrial fibrillation (ICD-10 - I48.11) This patient is in NSR or rate controlled. This patient is anticoagulated to prevent thromboembolic events. They are maintaining regular scheduled appts with their typesetter apprentice. No s/s bleeding Aug, Type 1 diabetes [...] risk for cerebrovascular and cardiovascular disease. Aug, FPC (current) use of insulin (ICD-10 - Z79.4) Aug, Kidney transplant status (ICD-10 - Z94.0) Continue close surveillance w/ labs [facility] Other 07-26-2023 NotePatient here for 1.5 year follow up and device check. Lightheaded in the office today, as BP is very low. He denies chest pain, SOB, palpitations, and bleeding on warfarin. Had routine labs last week. Review of Systems Musculoskeletal: Positive for arthritis, joint pain and myalgias. Neurological: Positive for light-headedness. All other systems reviewed and are negative.[facility] 09-09-2022 NoteUT Electrophysiology Consult Note Reason [...] at about 50-60 systolic. patient with friend/ regional tanker truck driver from facility, we will take patient to the ER for evaluation --------- Per dr. Alvarez 03/2021 Mr. Almonte, [place] , presents to clinic for routine follow [...] of the right coronary artery with robust [id number] collaterals. 5. Normal global left ventricular systolic [...] Follow up with Dr. Galvez in the [facility] in the next 2 weeks; he may follow up with Dr. Orosco as needed for interventional issues. 5. Follow up with Dr. Devon Moreira as scheduled. PMH: Past Medical History: Diagnosis Date Abnormal ECG Arrhythmia Atrial fibrillation (CMS/HCC) Chronic kidney disease Coronary artery disease Diabetes mellitus (CMS/HCC) (more content not included)...[facility]06-22-2023 Evaluation note* Encounter Date Diagnosis Assessment [...] are maintaining regular scheduled appts with their typesetter apprentice. No bleeding complications Jul, Type 1 diabetes [...] Monthly labs, ongoing surveillance from transplant clinic [facility] Other 05-15-2023 Progress note Author Sadia Aguilar [facility] June 29, 2022 2:47pm Note Date/Time June 29, 2022 2:46p m [facility] [address] [place] [address] Wound Center Provider Note Signed Patient: Alex Almonte MR#: [id number] : 1945 Acct:[id number] Age/Sex: 76 / M Copies to: DO Sadia Whyte APRN~ HPI Date of Visit Date of Visit: Date of Service: 06/29/2022 Time of Service: 14:45 Narrative HPI: 12/30/21 Alex is a 76 year old [facility] an[facility] visit for eval and treatment of a sacral/coccyx area pressure ulcer. He resides at [facility]. There is an AGRICULTURAL LENDER present for the visit. Medicalhoney gel will [...] his brief that was cleaned by this music writer as well as another nursing staff [...] from initial visit here Mode of Arrival/ Health Inspector: Facility vehicle Assistive Device Used Today: Wheelchair and Indra Lives with:: Care/Nursing Facility Appetite Description: Within Normal Limits Who helps w/ dressing change?: Nursing Facility Why Do You Need Help?: Can't Reach Ulcer, Limited mobility and Taxing effort to leave home Smoking Status: Former smoker [facility] Medical History (Updated 03/03/22 @ [...] Ulcer/Injury Staging: Unstageable Bed Appearance: Beefy Red, Country Walk, Yellow and Rolled Edges Percent of Wound [...] signed by DAVID Aguilar> 06/29/221446 [facility] Work Phone: 1(496) 948-310305-11-2023 Evaluation note* Encounter Date Diagnosis Assessment Notes [...] are maintaining regular scheduled appts with their typesetter apprentice. No bleeding complications June, Hyperlipidemia LDL goal <100 (ICD-10 - E78.5) Instructed on diet and exercise with continued statin therapy.Discussed the beneficial effects of lowering cholesterol in reducing the risk for cerebrovascular and cardiovascular disease. June, FPC (current) use of insulin (ICD-10 - Z79.4) June, Kidney transplant status (ICD-10 - Z94.0) No s/s rejection [facility] Other 04-24-2023 Progress note Author Sadia Aguilar [facility] June 08, 2022 2:10pm Note Date/Time June 08, 2022 2:[address] [facility] [address] [place] [address] Wound Center Provider Note Signed Patient: Alex Almonte MR#: [id number] : 1945 Acct:[id number] Age/Sex: 76 / M Copies to: DO Sadia Whyte APRN~ HPI Date of Visit Date of Visit: Date of Service: 06/08/2022 Time of Service: 14:07 Narrative HPI: 12/30/21 Alex is a 76 year old male [facility] an[facility] visit for eval and treatment of a sacral/coccyx area pressure ulcer. He resides at [facility]. There is an AGRICULTURAL LENDER present for the visit. Medicalhoney gel will [...] his brief that was cleaned by this music writer as well as another nursing staff [...] from initial visit here Mode of Arrival/ Health Inspector: Facility vehicle Assistive Device Used Today: Wheelchair and Indra Lives with:: Care/Nursing Facility Appetite Description: Within Normal Limits Who helps w/ dressing change?: Nursing Facility Why Do You Need Help?: Can't Reach Ulcer, Limited mobility and Taxing effort to leave home Smoking Status: Former smoker [facility] Medical History (Updated 03/03/22 @ [...] Ulcer/Injury Staging: Unstageable Bed Appearance: Beefy Red, Country Walk, Yellow and Rolled Edges Percent of Wound [...] by DAVID Aguilar> 06/08/22 1410 [facility] Work Phone: 1(896) 538-749304-21-2023 Evaluation note* Encounter Date Diagnosis Assessment Notes [...] are maintaining regular scheduled appts with their typesetter apprentice. May, director long term care (current) use of insulin (ICD-10 - Z79.4) May, Kidney transplant status (ICD-10 - Z94.0) routine labs per clinic. 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 No open ulcerations present Pain controlled [facility] Other 03-27-2023 Progress note Author Sadia Aguilar [facility] May 11, 2022 1:41pm Note Date/Time May 11, 2022 1:[address] [facility] [address] [place] [address] Wound Center Provider Note Signed Patient: Alex Almonte MR#: [id number] : 1945 Acct:[id number] Age/Sex: 76 / M Copies to: DO Sadia Whyte APRN~ HPI Date of Visit Date of Visit: Date of Service: 05/11/2022 Time of Service: 13:38 Narrative HPI: 12/30/21 Alex is a 76 year old male [facility] an[facility] visit for eval and treatment of a sacral/coccyx area pressure ulcer. He resides at [facility]. There is an AGRICULTURAL LENDER present for the visit. Medicalhoney gel will [...] his brief that was cleaned by this music writer as well as another nursing staff [...] from initial visit here Mode of Arrival/ Health Inspector: Facility vehicle Assistive Device Used Today: Wheelchair and Indra Lives with:: Care/Nursing Facility Appetite Description: Within Normal Limits Who helps w/ dressing change?: Nursing Facility Why Do You Need Help?: Can't Reach Ulcer, Limited mobility and Taxing effort to leave home Smoking Status: Former smoker [facility] Medical History (Updated 03/03/22 @ [...] Ulcer/Injury Staging: Unstageable Bed Appearance: Beefy Red, Country Walk and Yellow Percent of Wound Bed Granulated/Red: [...] <Electronically signed by DAVID Aguilar> 05/11/22 1341 [facility] Work Phone: 1([phone]) 226-546703-23-2023 Evaluation note* Encounter Date Diagnosis Assessment Notes [...] are maintaining regular scheduled appts with their typesetter apprentice. Apr, Type 1 diabetes mellitus with hyperglycemia [...] are reviewed at the office visit Apr, director long term care (current) use of insulin (ICD-10 - Z79.4) Apr, Kidney transplant status (ICD-10 - Z94.0) Serial labs by clinic Hydrate, avoid NSAIDS [facility] Other 03-10-2023 NoteHNO ID: [id number] Author: Keyur Brown MD Service: ? Author Type: Physician Type: Progress Notes Filed: 04/24/2022 10:32 AM Note Text: Encounter opened in error, patient not seen.[facility]02-28-2023 Progress note Author Sadia Aguilar [facility] April 14, 2022 2:19pm Note Date/Time April 14, 2022 2:18pm [facility] [address] [place] [address] Wound Center Provider Note Signed Patient: Alex Almonte MR#: [id number] : 1945 Acct:[id number] Age/Sex: 76 / M Copies to: DO Sadia Whyte APRN~ HPI Date of Visit Date of Visit: Date of Service: 04/14/2022 Time of Service: 14:18 Narrative HPI: 12/30/21 Alex is a 76 year old [facility] an[facility] visit for eval and treatment of a sacral/coccyx area pressure ulcer. He resides at [facility]. There is an AGRICULTURAL LENDER present for the visit. Medicalhoney gel will [...] his brief that was cleaned by this music writer as well as another nursing staff [...] from initial visit here Mode of Arrival/ Health Inspector: Facility vehicle Assistive Device Used Today: Wheelchair and Indra Lives with:: Care/Nursing Facility Appetite Description: Within Normal Limits Who helps w/ dressing change?: Nursing Facility Why Do You Need Help?: Can't Reach Ulcer, Limited mobility and Taxing effort to leave home Smoking Status: Former smoker [facility] Medical History (Updated 03/03/22 @ [...] Ulcer/Injury Staging: Unstageable Bed Appearance: Beefy Red, Country Walk and Yellow Percent of Wound Bed Granulated/Red: [...] By: <Electronically signed by DAVID Aguilar> 04/14/221418 [facility] Work Phone: 1(479) 647-893602-16-2023 NotePatient Outreach (KIMBERLY) ALEX ALMONTE ([id number]) 1945 M TRN Date Time Provider Department 04/02/22 VAN OLIVAREZ During your visit today, we recorded the following information about you: Allergies As of Date: 04/02/2022 Noted Allergy Reaction PYRIDOSTIGMINE BROMIDE 08/04/2021 8 - GI Upset Date Reviewed: 02/26/2022 Reviewed by: Braden Abel MA - Fully Assessed Visit Diagnosis:Screening for genitourinary condition [Z13.89] Order(s):URINALYSIS, REFLEX MICROSCOPIC [[id number]] Order #: [id number] Prescriptions as of 04/06/2022 - tacrolimus IR [...] by mouth daily with lunch. 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 DIABETES UNCOMPL ADULT-UNCONTRLLED [[id number]] 02/24/2002 KIDNEY TRANSPLANT STATUS [Z94.0] 09/07/2003 PROPHYLACTIC IMMUNOTHERAPY [Z29.8] 07/30/2006 SKILLED NURSING STEROIDS [[id number]] 07/30/2006 VITAMIN D DEFICIENCY NOS [E55.9] 09/07/2008 [...] diabetes mellitus with diabetic peripher*11/29/2021 Atherosclerosis of [place] artery of extremity w*11/29/2021 Malnutrition of moderate degree (HCC) [E44.0] 12/01/2021 Dermatitis associated with moisture [L30.8] 12/04/2021 Encounter Status:Closed by salgomed [employer] ITKEAGAN on 04/06/22[facility] 03-30-2022 Miscellaneous Notes* Telephone Encounter - [...] to pharmacy. Katina Duque [facility] Progress note Author Sadia Aguilar [facility] March 24, 2022 3:00pm Note Date/Time March 24, 2022 2 :59pm [facility] [address] [place] [address] Wound Center Provider Note Signed Patient: Alex Almonte MR#: [id number] : 1945 Acct:[id number] Age/Sex: 76 / M Copies to: DO Sadia Whyte APRN~ HPI Date of Visit Date of Visit: Date of Service: 03/24/2022 Time of Service: 14:58 Narrative HPI: 12/30/21 Alex is a 76 year old male [facility] an[facility] visit for eval and treatment of a sacral/coccyx area pressure ulcer. He resides at [facility]. There is an AGRICULTURAL LENDER present for the visit. Medicalhoney gel will [...] his brief that was cleaned by this music writer as well as another nursing staff [...] from initial visit here Mode of Arrival/ Health Inspector: Facility vehicle Assistive Device Used Today: Wheelchair and Indra Lives with:: Care/Nursing Facility Appetite Description: Within Normal Limits Who helps w/ dressing change?: Nursing Facility Why Do You Need Help?: Can't Reach Ulcer, Limited mobility and Taxing effort to leave home Smoking Status: Former smoker [facility] Medical History (Updated 03/03/22 @ [...] Ulcer/Injury Staging: Unstageable Bed Appearance: Beefy Red, Country Walk and Yellow Percent of Wound Bed Granulated/Red: [...] <Electronically signed by DAVID Aguilar> 03/24/22 1500 [facility] Work Phone: 1(804) 747-300201-17-2023 Progress note Author Sadia Aguilar [facility] March 03, 2022 2:41pm Note Date/Time March 03, 2022 2 :41pm [facility] [address] [place] [address] Wound Center Provider Note Signed Patient: Alex Almonte MR#: [id number] : 1945 Acct:[id number] Age/Sex: 76 / M Copies to: DO Sadia Whyte APRN~ HPI Date of Visit Date of Visit: Date of Service: 03/03/2022 Time of Service: 14:38 Narrative HPI: 12/30/21 Alex is a 76 year old male [facility] an[facility] visit for eval and treatment of a sacral/coccyx area pressure ulcer. He resides at [facility]. There is an AGRICULTURAL LENDER present for the visit. Medicalhoney gel will [...] his brief that was cleaned by this music writer as well as another nursing staff [...] from initial visit here Mode of Arrival/ Health Inspector: Facility vehicle Assistive Device Used Today: Wheelchair and Indra Lives with:: Care/Nursing Facility Appetite Description: Within Normal Limits Who helps w/ dressing change?: Nursing Facility Why Do You Need Help?: Can't Reach Ulcer, Limited mobility and Taxing effort to leave home Smoking Status: Former smoker [facility] Medical History (Updated 03/03/22 @ [...] Ulcer Pressure Ulcer/Injury Staging: Unstageable Bed Appearance: Country Walk and Yellow Percent of Wound Bed Granulated/Red: 90 Percent of Devitalized: 10 Length (cm): 2.2 Width (cm): 1.8 Depth (cm): 1.9 CM Sq: 3.960 Surrounding Tissue Appearance: Country Walk, Hyperpigmented and Satellite lesions Surrounding Tissue Temp: [...] by DAVID Aguilar> 03/03/22 1441 [facility] Work Phone: 1(886) 790-958401-13-2023 Miscellaneous Notes* Telephone Encounter - RAUL Davidson - 02/27/2022 10:24 AM EST Patient phones requesting refills as follows: Per pts sister takes 1 mg in AM and 1 mg in PM Requested Prescriptions Pending Prescriptions Disp Refills tacrolimus IR (PROGRAF) 1 mg capsule Sig: Take 2 capsules by mouth DAILY (6 AM). Please review and advise. RAUL Davidson documented in this encounterSouthview Medical Center01-12-2023 NoteHNO ID: [id number] Author: Hina Peterson MD Service: ? 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 Patient on mycophenolate mofetil , cellcept and prednisone Mixed hyperlipidemia due to type 2 diabetes mellitus ([facility]) 11/29/2021 Osteomyelitis ([facility]) 11/29/2021 Paroxysmal atrial fibrillation ([facility]) Renal transplant, status post SA node dysfunction ([facility]) s/p pacemaker Type 2 diabetes mellitus with diabetic neuropathy, with long-term current use of insulin ([facility]) 02/24/2002 PAST SURGICAL HISTORY Procedure [...] by mouth daily with lunch. Magic Cup [place] with lunch aspirin, enteric coated (ASPIRIN, ENTERIC COATED) 81 mg EC tablet Take 1 tablet by mouth once daily. predniSONE (DELTASONE) 5 mg tablet TAKE 1 TABLET BY MOUTH EVERY DAY oxyCODONE IR (ROXICODONE) 5 mg immediate release tablet 1-2 tablets by ORAL/FEEDING TUBE route every 3 hours as needed. Food Supplement, Lactose-Free (ENSURE MAX (more content not included)... [facility] History of Present illness Narrative* Hina Peterson MD - 02/26/2022 4:25 PM EST Images from the original note were not included. [facility] DEPARTMENT OF VASCULAR SURGERY OUTPATIENT VISIT [...] maxwell and sutures were removed at the [facility] facility. He comes here with a lateral wound eschar. He denies any fevers, chills, or any drainage. He is on anticoagulation. 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 Patient on mycophenolate mofetil ,cellcept and prednisone Mixed hyperlipidemia due to type 2 diabetes mellitus ([facility]) 11/29/2021 Osteomyelitis ([facility]) 11/29/2021 Paroxysmal atrial fibrillation ([facility]) Renal transplant, status post SA node dysfunction ([facility]) s/p pacemaker Type 2 diabetes mellitus with diabetic neuropathy, with long-term current use of insulin ([facility]) 02/24/2002 PAST SURGICAL HISTORY Procedure [...] by mouth daily with lunch. Magic Cup [place] with lunch aspirin, enteric coated (ASPIRIN, ENTERIC [...] 2022 TIME: 4:26 PM documented in this encounterSouthview Medical Center01-05-2023 Miscellaneous Notes* Telephone Encounter - [...] Home and cell number(Ask for Alex's nurse) [phone] Diagnosis 4 mo f/u wound check Yumiko Mcclain documented in this encounterSouthview Medical Center01-05-2023 Miscellaneous Notes* Telephone Encounter - [...] level. Augusta Medrano RN documented in this encounterSouthview Medical Center01-04-2023 Miscellaneous Notes* Telephone Encounter - [...] advise. Mercedez Tavares MA documented in this encounterSouthview Medical Center12-27-2022 Progress note Author Sadia Aguilar [facility] February 10, 2022 3:47pm Note Date/Time February 10, 2022 3:47pm [facility] MEDICAL C ENTER [address] [place] [address] Wound Center Provider Note Signed Patient: Alex Almonte MR#: [id number] : 1945 Acct:[id number] Age/Sex: 76 / M Copies to: DO Sadia Whyte APRN~ HPI Date of Visit Date of Visit: Date of Service: 02/10/2022 Time of Service: 15:44 Narrative HPI: 12/30/21 Alex is a 76 year [facility] visit for eval and treatment of a sacral/coccyx area pressure ulcer. He resides at [facility]. There is an AGRICULTURAL LENDER present for the visit. Medicalhoney gel will [...] his brief that was cleaned by this music writer as well as another nursing staff member, few weeks to follow up Subjective Pain Coccyx: Pain Description: Intermittent Pain Intensity: 0 Wound/Ulcer History When did wound start?: 4 weeks ago- from initial visit here Mode of Arrival/ Health Inspector: Facility vehicle Assistive Device Used Today: Wheelchair and Indra Lives with:: Care/Nursing Facility Appetite Description: Within Normal Limits Who helps w/ dressing change?: Nursing Facility Why Do You Need Help?: Can't Reach Ulcer, Limited mobility and Taxing effort to leave home Smoking Status: Former smoker [facility] Medical History (Updated 01/20/22 @ [...] Ulcer Pressure Ulcer/Injury Staging: Unstageable Bed Appearance: Country Walk and Yellow Percent of Wound Bed Granulated/Red: 90 Percent of Devitalized: 10 Length (cm): 2.5 Width (cm): 2.3 Depth (cm): 2.1 CM Sq: 5.750 Surrounding Tissue Appearance: Country Walk, Hyperpigmented and Satellite lesions Surrounding Tissue Temp: [...] <Electronically signed by DAVID Aguilar> 02/10/22 1547 [facility] Work Phone: 1(306) 381-741312-22-2022 NoteHNO ID: [id number] Author: Asia Pike MD Service: ? Author Type: Physician Type: Progress Notes Filed: 02/05/2022 9:38 AM Note Text: [facility] Transplant Follow up Portions of this [...] and snacks patient declined. Indra scale at [facility]: 166.2 lbs per patient. Bed sore on coccyx causing discomfort. Being changed regularly at SNF- reported to be smaller around but still as deep. Patient not very up to date with medications. Patient brought paperwork from [employer] with all medications being received. Patient unsure if they have been drawing labs regularly. Last Tac from 01/19: 12.9 and K 5.9. In need of current labs. Lab orders will be sent with patient and follows as below: Kidney and Pancreas Transplant Standing Lab Orders [address] [place], [place] [address] February 05, 2022 Alex Almonte 1945 [id number] STANDARD TESTING: Diagnosis Codes: Z94.0 Kidney Transplant [...] AT YOUR LABORATORY FACILITY AND FAX TO [phone]. PLEASE CALL [phone]. Provider: Dr. Pike Current Outpatient Medications Medication [...] by mouth daily with lunch. Magic Cup [place] with lunch aspirin, enteric coated (ASPIRIN, ENTERIC COATED) 81 mg EC tablet Take 1 tablet by mouth once daily. atorvastatin (LIPITOR) 40 mg tablet 1 tablet by ORAL/FEEDING TUBE route daily at bedtime. (more content not included)...[facility]12-22-[facility] History of Present illness Narrative* Asia Pike MD - 02/05/2022 8:20 AM EST Images from the original note were not included. [facility] Transplant Follow up Portions of this [...] and snacks patient declined. Indra scale at [facility]: 166.2 lbs per patient. Bed sore on coccyx causing discomfort. Being changed regularly at SNF- reported to be smaller around but still as deep. Patient not very up to date with medications. Patient brought paperwork from [employer] with all medications being received. Patient unsure if they have been drawing labs regularly. Last Tac from 01/19: 12.9 and K 5.9. In need of current labs. Lab orders will be sent with patient and follows as below: Kidney and Pancreas Transplant Standing Lab Orders [address] [facility] [address] [place], [place] [address] February 05, 2022 Alex Almonte 1945 [id number] STANDARD TESTING: Diagnosis Codes: Z94.0 Kidney Transplant [...] AT YOUR LABORATORY FACILITY AND FAX TO [phone]. PLEASE CALL [phone]. Provider: Dr. Pike Current Outpatient Medications Medication [...] by mouth daily with lunch. Magic Cup [place] with lunch aspirin, enteric coated (ASPIRIN, ENTERIC [...] All other system reviews negative. Augusta Medrano first assistant manager: February 05, 2022 9:34 AM I [...] complexity. Asia Pike MD documented in this encounterSouthview Medical Center12-06-2022 Progress note Author Sadia Aguilar [facility] January 20, 2022 2:21pm Note Date/Time January 20, 2022 2 :21pm [facility] MEDICAL ENTER [address] [place] [address] Wound Center Provider Note Signed Patient: Alex Almonte MR#: [id number] : 1945 Acct:[id number] Age/Sex: 76 / M Copies to: Devon Moreira,DO Sadia Aguilar APRN~ HPI Date of Visit Date of Visit: Date of Service: 01/20/2022 Time of Service: 14:17 Narrative HPI: 12/30/21 Alex is a 76 year old male [facility] an[facility] visit for eval and treatment of a sacral/coccyx area pressure ulcer. He resides at [facility]. There is an AGRICULTURAL LENDER present for the visit. Medicalhoney gel will [...] from initial visit here Mode of Arrival/ Health Inspector: Facility vehicle Assistive Device Used Today: Wheelchair and Indra Lives with:: Care/Nursing Facility Appetite Description: Within Normal Limits Who helps w/ dressing change?: Nursing Facility Why Do You Need Help?: Can't Reach Ulcer, Limited mobility and Taxing effort to leave home Smoking Status: Former smoker [facility] Medical History (Updated 01/20/22 @ [...] Ulcer Pressure Ulcer/Injury Staging: Unstageable Bed Appearance: Country Walk and Yellow Percent of Wound Bed Granulated/Red: 40 Percent of Devitalized: 60 Length (cm): 5.2 Width (cm): 3.4 Depth (cm): 1.8 CM Sq: 17.680 Surrounding Tissue Appearance: Country Walk and Hyperpigmented Surrounding Tissue Temp: Warm Drainage [...] <Electronically signed by DAVID Aguilar> 01/20/22 1421 [facility] Work Phone: 1(190) 920-110612-06-2022 Miscellaneous Notes* Telephone Encounter - Van Olivarez APRN.CNP - 01/20/2022 1:12 PM EST Labs noted from yesterday. Pt is currently residing at [facility], I spoke with the Nurse, the results has been addressed by Physician caring for pt. He had been placed on Chlor Con and this has been discontinued and hyperkalemia has been treated. Van Olivarez APRN.DIAMANTE documented in this encounterSouthview Medical Center11-28-2022 Surgical operation note* Brief Op Note - Misbah Landis PA-C - 01/12/2022 10:41 AM EST BRIEF OPERATIVE / PROCEDURE NOTE LOG ID: [id number] SURGERY/PROCEDURE DATE: 01/12/2022 INCISION/PROCEDURE START TIME: 10:32 AM INCISION CLOSE/PROCEDURE END TIME: 10:35 AM SURGEON(S)/PROCEDURALIST(S) AND ENVIRONMENTAL HEALTH NURSE(S): Misbah Landis PA-C SURGERY/PROCEDURE(S): Removal tunneled vascular access catheter under local anesthesia ANESTHESIA: Procedural Sedation FINDINGS: Catheter removed intact ESTIMATED BLOOD LOSS: 0 ml SPECIMENS: None COMPLICATIONS: None PRE-OP/PRE-PROCEDURE DIAGNOSIS: Foot Ulcer POST-OP/POST-PROCEDURE DIAGNOSIS: Same as Preop SIGNATURE: Misbah Landis PA-C PATIENT NAME: Alex Almonte DATE: January 12, 2022 TIME: 10:42 AM documented in this encounterSouthview Medical Center11-22-2022 Nurse Note* Laxmi Archibald RN - 01/06/2022 1:55 PM EST Pre-procedure instructions: Contacted patient's sister, Munira Brothers and nurse at [facility], Jada ([phone]) andconfirmed appt. for Gerhard removal scheduled on [...] Arrival at 9:30am to desk QB-1 ([facility]) and check in for your procedure. Aeronautical Engineer/Transportation: How will you be arriving for your procedure? Ambulance service. To be arranged by [facility]. If you develop any of the following symptoms before your procedure, please call [phone]. Chills, joint pain, rash, sore throat, cough, loss of smell, reddened eyes, vomiting, abdominal pains, diarrhea, loss of taste, severe headache, weakness, bruising or bleeding, fever, muscle pain, shortness of breath Recovery expectations: You can expect to be in recovery for 30 minutes following the procedure. Written instructions provided to patient via [employer] ITt If you have any questions please call [phone] documented in this encounterSouthview Medical Center11-15-2022 Progress note Author Sadia Aguilar [facility] December 30, 2021 1:49pm Note Date/Time December 30, 2021 1:49pm [facility] C ENTER [address] [place] [address] Wound Center Provider Note Signed Patient: Alex Almonte MR#: [id number] : 1945 Acct:[id number] Age/Sex: 76 / M Copies to: DO Sadia Whyte APRN~ HPI Date of Visit Date of Visit: Date of Service: 12/30/2021 Time of Service: 13:44 Narrative HPI: 12/30/21 Alex is a 76 year old male [facility] an[facility] visit for eval and treatment of a sacral/coccyx area pressure ulcer. He resides at [facility]. There is an AGRICULTURAL LENDER present for the visit. Medicalhoney gel will [...] start?: 4 weeks ago Mode of Arrival/ Health Inspector: Facility vehicle Assistive Device Used Today: Wheelchair and Indra Lives with:: Care/Nursing Facility Appetite Description: Within Normal Limits Who helps w/ dressing change?: Nursing Facility Why Do You Need Help?: Can't Reach Ulcer, Limited mobility and Taxing effort to leave home Smoking Status: Former smoker [facility] Medical History (Updated 12/30/21 @ [...] 0.1 CM Sq: 38.500 Surrounding Tissue Appearance: Country Walk and Hyperpigmented Surrounding Tissue Temp: Warm Drainage [...] <Electronically signed by DAVID Aguilar> 12/30/21 1349 [facility] Work Phone: 1(377) 708-143811-15-2022 History of Present illness Narrative* Paresh Fonseca [...] the rehab facility He is currently at [facility] in [facility] Seen on video together with Zoe -history obtained from bedside nursing. he is getting up in a chair, working with PT diet is back to regular hes doing well. 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 has scabs on the R lateral side but no wound care concerns. It continues to heal. He has a follow-up with vascular surgery later December 2021. has a sacral wound -- he has local wound care following this at [facility] WBC 6.0, creatinine -- 0.8. alt [...] by mouth daily with lunch. Magic Cup [place] with lunch aspirin, enteric coated (ASPIRIN, ENTERIC [...] focal weakness. No tremors. Right chest wall egrhard catheter clean dry and intact DIAGNOSTICS REVIEWED/OPAT LABS REVIEWED Impression/Recommendations Zevcasey Almonte is a 76 year old male from [facility]. Here today for copat follow-up for vancomycin x4 weeks for MRSA bacteremia He was transferred from [facility] on 11/28/2021 for further surgical management of infected right heel He has a past medical history of kidney transplant in 2001, left AKA from previously infected foot ulcers and multiple foot surgeries. History of PAD CAD status post CABG, diabetes, atrial fibrillatioN He originally presented [facility] for having altered mental status [...] 3. Status post right heel I&D at [facility] on 11/24/2021. 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 4. CKD - s/p gerhard placement 5. immunocompromised Status post right open above the ankle [id number] - Enterobacter and MRSA from cultures Gram-positive [...] will need to coordinate with his SNF [phone] --our ID office will need to arrange for IR gerhard removal. Return to ID as needed 10 Minutes spent via virtual visit. SIGNATURE: Paresh Fonseca MD PATIENT NAME: Alex Almonte DATE: December 30, 2021 TIME: 9:52 AM documented in this encounterSouthview Medical Center11-01-2022 Miscellaneous Notes* Telephone Encounter - Sulma Pardo - 12/16/2021 3:13 PM EDT Pt physical therapy asst is requesting orders for Stomp nayeushield to be taken off pressure relief because it is causing sores on the thigh. Thanks, Sulma Pardo Quarter Inspector documented in this encounterSouthview Medical Center10-31-2022 Miscellaneous Notes* Telephone Encounter - Gwen Juni Adm Asst I - 12/15/2021 4:11 PM EDT Rupa LYLES from [facility] [phone] called to report IV Vancomycin was started until today. Patient missed 3 days, should patient makeup missed doses? Please advise. Gwen Juni Adm Asst I documented in this encounterSouthview Medical Center10-21-2022 Instructions* Patient Instructions* Paresh Fonseca [...] serious illness Are taking any medications (prescription, ckkn-kgw-kycdocg, vitamins, or herbal products) How will I receive EVUSHELD? EVUSHELD consists of two investigational medicines, tixagevimab and cilgavimab. You will receive 1 dose of EVUSHELD, consisting of 2 separate injections (tixagevimab and cilgavimab). EVUSHELD will be given to you by your healthcare provider as 2 intramuscular injections, given one after the other. Viruses can chemical cell changer time (mutate) and develop into a [...] caused by certain SARS-CoV-2 variants: Viruses can chemical cell changer time (mutate) and develop into a [...] treatment or prevention of COVID-19 go to https://www.fda.gov/whorjcres-lhjeeygfricx-oos- response/adm-ibbez-cgxopqyjen-acl-msfcel-xxmkyveqm/syjhqsqsl-nmw-wwupihpyfxtsn for more information. It is your choice [...] to FDA MedWatch at www.fda.gov/medwatch or call 2-190-HPL-4618 or call [employer] . Additional Information If you have questions, visit the website or call the telephone number provided below. Website Telephone number http://www.Curazy How can I learn more about COVID-19? Ask your healthcare provider. Visit https://www.cdc.gov/COVID19 Contact your local or state public health department. What is an Emergency Use Authorization? The [place] FDA has made EVUSHELD (tixagevimab co-packaged with cilgavimab) available under an emergency access mechanism called an Emergency Use Authorization EUA. The EUA is supported by a Risk Management Specialist of Health and Human Service ([facility]) declaration that circumstances exist to justify [...] monohydrate, polysorbate 80, sucrose, water. Distributed by: [employer] [place], [place] Manufactured for: [employer] [place], [place] [employer] 2021. All rightsreserved. documented in this encounterSouthview Medical Center10-21-2022 Miscellaneous Notes* Telephone Encounter - Paresh Fonseca MD - 12/05/2021 3:05 PM EDT Evusheld (tixagevimab/cilgavimab) Eligibility and Patient Discussion The patient agrees to receive Evusheld (tixagevimab 300 mg and cilgavimab 300 mg) at [facility]. The patient verbalized understanding of repeating a COVID test 72 hours prior to the injections. called up patient in response to her mychart message today she tested covid negative on a rapid test on Wednesday this week Discussed evushed fact sheet and she agrees to proceed she will retest again today to be scheduled for Friday 12/08 at [facility] Paresh Fonseca MD documented in this encounterSouthview Medical Center10-03-2022 Instructions* Patient Instructions* No Reeder DO - 11/17/2021 4:26 PM EDT -- continue coumadin -- will get vascular ultrasound for vein and artery of your right leg -- will have you see my interventional cardiology partner regarding your peripheral artery disease and if your artery disease is impairing your wound healing for the leg ulcer documented in this encounterSouthview Medical Center10-03-2022 History of Present illness Narrative* No Reeder DO - 11/17/2021 3:53 PM EDT Images from the original note were not included. [facility]dugo Department of Cardiovascular Medicine [...] DVT scan. Leg elevation. No Reeder DO, [facility] Vascular Medicine documented in this encounterSouthview Medical Center08-16-2022 History of Past illness Narrative* Problem Noted Date Resolved Date Altered tissue perfusion 022 documented as of this encounter (statuses as of 09/30/2021) [facility] History of Past illness Narrative* Problem Noted Date Resolved Date Altered tissue perfusion 08/16/2 022 documented as of this encounter (statuses as of 10/09/2021) [address]16-2022 History of Past illness Narrative* Problem Noted Date Resolved Date Altered tissue perfusion 16/2 022 documented as of this encounter (statuses as of 11/18/2021) [address]16-2022 History of Past illness Narrative* Problem Noted Date Resolved Date Altered tissue perfusion 16/2 022 documented as of this encounter (statuses as of 12/01/2021) [address]16-2022 History of Past illness Narrative* Problem Noted Date Resolved Date Altered tissue perfusion 16/2 022 documented as of this encounter (statuses as of 12/05/2021) [address]16-2022 History of Past illness Narrative* Problem Noted Date Resolved Date Altered tissue perfusion 09/30/2 022 documented as of this encounter (statuses as of 12/08/2021) [address]16-2022 History of Past illness Narrative* Problem Noted Date Resolved Date Altered tissue perfusion 16/2 022 documented as of this encounter (statuses as of 12/08/2021) [address]16-2022 History of Past illness Narrative* Problem Noted Date Resolved Date Altered tissue perfusion 16/2 022 documented as of this encounter (statuses as of 12/12/2021) [address]16-2022 History of Past illness Narrative* Problem Noted Date Resolved Date Altered tissue perfusion 16/2 022 documented as of this encounter (statuses as of 12/15/2021) [address]16-2022 History of Past illness Narrative* Problem Noted Date Resolved Date Altered tissue perfusion 16/2 022 documented as of this encounter (statuses as of 12/16/2021) [address]16-2022 History of Past illness Narrative* Problem Noted Date Resolved Date Altered tissue perfusion 16/2 022 documented as of this encounter (statuses as of 12/31/2021) [address]16-2022 History of Past illness Narrative* Problem Noted Date Resolved Date Altered tissue perfusion 16/2 022 documented as of this encounter (statuses as of 01/13/2022) [address]16-2022 History of Past illness Narrative* Problem Noted Date Resolved Date Altered tissue perfusion 16/2 022 documented as of this encounter (statuses as of 01/20/2022) [address]16-2022 History of Past illness Narrative* Problem Noted Date Resolved Date Altered tissue perfusion 16/2 022 documented as of this encounter (statuses as of 02/06/2022) [address]16-2022 History of Past illness Narrative* Problem Noted Date Resolved Date Altered tissue perfusion 09/30/2 022 documented as of this encounter (statuses as of 02/20/2022) [address]16-2022 History of Past illness Narrative* Problem Noted Date Resolved Date Altered tissue perfusion 2 022 documented as of this encounter (statuses as of 02/26/2022) [address]16-2022 History of Past illness Narrative* Problem Noted Date Resolved Date Altered tissue perfusion 2 022 documented as of this encounter (statuses as of 02/27/2022) [address]16-2022 History of Past illness Narrative* Problem Noted Date Resolved Date Altered tissue perfusion 2 022 documented as of this encounter (statuses as of 03/21/2022) [address]16-2022 History of Past illness Narrative* Problem Noted Date Resolved Date Altered tissue perfusion 09/30/2 022 documented as of this encounter (statuses as of 03/30/2022) [address]16-2022 History of Past illness Narrative* Problem Noted Date Resolved Date Altered tissue perfusion 09/30/2 022 documented as of this encounter (statuses as of 04/06/2022) [address]16-2022 History of Past illness Narrative* Problem Noted Date Resolved Date Altered tissue perfusion 2 022 documented as of this encounter (statuses as of 05/13/2022) [address]16-2022 History of Past illness Narrative* Problem Noted Date Diagnosed Date Resolved Date Altered tissue perfusion documented as of this encounter (statuses as of 2022) [address]16-2022 History of Past illness Narrative* Problem Noted Date Diagnosed Date Resolved Date Altered tissue perfusion documented as of this encounter (statuses as of 10/29/2022) [address]16-2022 Miscellaneous Notes* Telephone Encounter - Katina [...] to pharmacy. Katina Duque [facility] Misc[facility] Notes* Telephone Encounter - [...] and advise. Rosibel Daniel [facility] Miscellaneous Notes* Telephone Encounter - Van Olivarez APRN.CNP - 06/05/2021 4:46 PM EDT Spoke with pt regarding latest results, scr. at baseline. TAC level 8.6 prev two levels in 5 range.He believes latest level would be 12hr trough. No changes for now, if next level >7, can consider if reduction appropriate. He understands. Van Olivarez APRN.CNP [facility] [place] [facility]* Diagnosis Screening for genitourinary condition Screening for other and unspecified genitourinary condition documented in this encounter [facility] note* Diagnosis Acute deep vein thrombosis (DVT) of proximal end of right lower extremity (HCC)- Primary PAD (peripheral artery disease) ([facility]) Peripheral vascular disease, unspecified Nonhealing ulcer of heel ([facility]) Anticoagulation management encounter Encounter for therapeutic drug monitoring documented in this [facility] [place] [facility]* Diagnosis Encounter for prophylactic measures, unspecified- Primary documented in this [facility] [place] [facility]* Diagnosis Kidney replaced by transplant- Primary documented [facility] [place] [facility]* Diagnosis MRSA bacteremia- Primary Bacteremia Diabetic foot ulcer with osteomyelitis ([facility]) Type II or unspecified type diabetes mellitus with other specified manifestations, not stated as uncontrolled ILIANA (acute kidney injury) ([facility]) Acute kidney failure, unspecified documented in this [facility] [place] [facility]* Diagnosis Kidney replaced by transplant- Primary 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 director long term care current use of immunosuppressive drug documented in this encounter [facility] note* Diagnosis Hx of BKA, right (HCC)- Primary PAD (peripheral artery disease) ([facility]) Peripheral vascular disease, unspecified Mixed hyperlipidemia due to type 2 diabetes mellitus ([facility]) Type II or unspecified type diabetes mellitus with renal manifestations, uncontrolled(250.42) Type II or unspecified type diabetes mellitus with renal manifestations, uncontrolled Type 2 diabetes mellitus with diabetic neuropathy, with long-term current use of insulin (HCC) Type 2 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, with long-term current use of insulin (HCC) Paroxysmal atrial fibrillation ([facility]) Atrial fibrillation documented in this [facility] [place] [facility]* Diagnosis Screening for genitourinary condition Screening for other and unspecified genitourinary condition documented in this encounter [facility] note* Diagnosis Onset Date Resolution Status At high risk for skin breakdown chronic Diabetes chronic Fecal incontinence chronic Limited mobility chronic Poor appetite chronic Pressure ulcer of sacral region, unstageable chronic Candidiasis [facility] Work Phone: Evaluation [facility]No [facility] Other Evaluation note* Diagnosis Kidney replaced by transplant- Primary [facility] Diagnosis Type 1 diabetes [...] COLONOSCOPY 1995,2001, 2014 Hospitalization History see above [place] [employer] Other Progress note Author Sadia Aguilar [facility] July 20, 2022 1:48pm Note Date/Time July 20, 2022 1:48p m [facility] [address] [place] [address] Wound Center Provider Note Signed Patient: Alex Almonte MR#: [id number] : 1945 Acct:[id number] Age/Sex: 76 / M Copies to: DO Sadia Whyte, DIRECTOR OF DATABASE MARKETING~ HPI Date of Visit Date of Visit: Date of Service: 07/20/2022 Time of Service: 13:46 Narrative HPI: 12/30/21 Alex is a 76 year old [facility] for aninitial visit for eval and treatment of a sacral/coccyx area pressure ulcer. He resides at [facility]. There is an AGRICULTURAL LENDER present for the visit. Medicalhoney gel will [...] his brief that was cleaned by this music writer as well as another nursing staff [...] from initial visit here Mode of Arrival/ Health Inspector: Facility vehicle Assistive Device Used Today: Wheelchair and Indra Lives with:: Care/Nursing Facility Appetite Description: Within Normal Limits Who helps w/ dressing change?: Nursing Facility Why Do You Need Help?: Can't Reach Ulcer, Limited mobility and Taxing effort to leave home Smoking Status: Former smoker [facility] Medical History (Updated 03/03/22 @ [...] by DAVID Aguilar> 07/20/22 [address] [facility] Work Phone: Reason for referral (narrative)* Outpatient Procedure (Routine) - Authorized Specialty Diagnoses / Procedures Referred By Contac t Referred To Contact [facility] Diagnoses PAD (peripheral artery disease) (HCC) Nonhealing ulcer of heel (HCC) Procedures US LEG ARTERIAL PERIPH UNL VAS LAB DUP-SCAN LXTR ART/ARTL BPGS UNI/LMTD STUDY No Reeder DO [address] [place] [address] [facility] [place] [address] Referral ID Status Reason Start Date Expiration Date Visits Requested Visits Authorized [id number] Authorized Auto-Generat ed Referral 11/17/2021 11/17/2022 1 1 * Outpatient Procedure (Routine) - Authorized Specialty Diagnoses / Procedures Referred By Contac t Referred To Contact [facility] Diagnoses Acute deep vein thrombosis (DVT) of proximal end of right lower extremity (HCC) Procedures US LEG VEIN DVT UNL VAS LAB DUP-SCAN XTR VEINS UNILATERAL/LIMITED STUDY No Reeder DO [address] [place] [address] [place] [address] Referral ID Status Reason Start Date Expiration Date Visits Requested Visits Authorized [id number] Authorized Auto-Generat ed Referral 11/17/2021 11/17/2022 1 1 * Consult, Test, Treat (Routine) - Authorized Specialty Diagnoses / Procedures Referred By Contac t Referred To Contact Cardiology Diagnoses PAD (peripheral artery disease) (HCC) Nonhealing ulcer of heel (HCC) Procedures CONSULT TO CARDIOLOGY OFFICE/OUTPATIENT [facility] 60-74 MINUTES Savanah Marcelo MD [address] [place] [address] Referral ID Status Reason Start Date Expiration Date Visits Requested Visits Authorized [id number] Authorized PCP Requested Referral 11/17/2021 11/17/2022 1 1 [facility] Summary Purpose Family History Relationship Condition Age at Onset Recorded Date/T kartik father Aneurysm Unknown father Parkinson's disease Unknown Advance Directives Documents on File Type Date Recorded Patient Route Sales Delivery Driver Expl anation Advance Directive(s) Latest Code Status [...] Maker Relationship: M ajority of Adult Siblings (packaging sales representative) DNR-CCA 09/26/2021 11:56 AM 10/01/2021 [...] Decision Maker Relationship: Majority of Adult Siblings (packaging sales representative) Code Status History Code Status [...] Reason for Visit Chief Complaint Open Wound ([facility]) Reason for Visit At high risk [...] and content) DATE CREATED AUTHOR 02/20/2021 [employer] DATE CREATED AUTHOR AUTHOR'S ORGANIZ ATION 07/25/[address] [facility] DATE CREATED AUTHOR AUTHOR'S ORGANIZ ATION 08/16/2022 [facility] DATE CREATED AUTHOR AUTHOR'S ORGANIZ ATION 09/17/2022 [facility] DATE CREATED AUTHOR AUTHOR'S ORGANIZ ATION 01/14/2023 [facility] DATE CREATED AUTHOR AUTHOR'S ORGANIZ ATION 03/20/2023 [facility] [employer] Source Comments (unrecognize d section and content) In the event this informatio n is protected by the Federal Confidentiality of Alcohol and Drug Abuse Patient Records regulations: The Federal rules restrict any use of the information to criminally investigate or prosecute any alcohol or drug abuse patient.[facility] CenterIn the event this information is protected by the Federal Confidentiality of Alcohol and Drug Abuse Patient Records regulations: The Federal rules restrict any use of the information to criminally investigate or prosecute any alcohol or drug abuse patient.[facility] CenterIn the event this information is protected by the Federal Confidentiality of Alcohol and Drug Abuse Patient Records regulations: The Federal rules restrict any use of the information to criminally investigate or prosecute any alcohol or drug abuse patient.[facility] CenterIn the event this information is protected by the Federal Confidentiality of Alcohol and Drug Abuse Patient Records regulations: The Federal rules restrict any use of the information to criminally investigate or prosecute any alcohol or drug abuse patient.[facility] CenterIn the event this information is protected by the Federal Confidentiality of Alcohol and Drug Abuse Patient Records regulations: The Federal rules restrict any use of the information to criminally investigate or prosecute any alcohol or drug abuse patient.[facility] CenterIn the event this information is protected by the Federal Confidentiality of Alcohol and Drug Abuse Patient Records regulations: The Federal rules restrict any use of the information to criminally investigate or prosecute any alcohol or drug abuse patient.[facility] CenterIn the event this information is protected by the Federal Confidentiality of Alcohol and Drug Abuse Patient Records regulations: The Federal rules restrict any use of the information to criminally investigate or prosecute any alcohol or drug abuse patient.[facility] CenterIn the event this information is protected by the Federal Confidentiality of Alcohol and Drug Abuse Patient Records regulations: The Federal rules restrict any use of the information to criminally investigate or prosecute any alcohol or drug abuse patient.[facility] CenterIn the event this information is protected by the Federal Confidentiality of Alcohol and Drug Abuse Patient Records regulations: The Federal rules restrict any use of the information to criminally investigate or prosecute any alcohol or drug abuse patient.[facility] CenterIn the event this information is protected by the Federal Confidentiality of Alcohol and Drug Abuse Patient Records regulations: The Federal rules restrict any use of the information to criminally investigate or prosecute any alcohol or drug abuse patient.[facility] CenterIn the event this information is protected by the Federal Confidentiality of Alcohol and Drug Abuse Patient Records regulations: The Federal rules restrict any use of the information to criminally investigate or prosecute any alcohol or drug abuse patient.[facility] CenterIn the event this information is protected by the Federal Confidentiality of Alcohol and Drug Abuse Patient Records regulations: The Federal rules restrict any use of the information to criminally investigate or prosecute any alcohol or drug abuse patient.[facility] CenterIn the event this information is protected by the Federal Confidentiality of Alcohol and Drug Abuse Patient Records regulations: The Federal rules restrict any use of the information to criminally investigate or prosecute any alcohol or drug abuse patient.[facility] CenterIn the event this information is protected by the Federal Confidentiality of Alcohol and Drug Abuse Patient Records regulations: The Federal rules restrict any use of the information to criminally investigate or prosecute any alcohol or drug abuse patient.[facility] CenterIn the event this information is protected by the Federal Confidentiality of Alcohol and Drug Abuse Patient Records regulations: The Federal rules restrict any use of the information to criminally investigate or prosecute any alcohol or drug abuse patient.[facility] CenterIn the event this information is protected by the Federal Confidentiality of Alcohol and Drug Abuse Patient Records regulations: The Federal rules restrict any use of the information to criminally investigate or prosecute any alcohol or drug abuse patient.[facility] CenterIn the event this information is protected by the Federal Confidentiality of Alcohol and Drug Abuse Patient Records regulations: The Federal rules restrict any use of the information to criminally investigate or prosecute any alcohol or drug abuse patient.[facility] CenterIn the event this information is protected by the Federal Confidentiality of Alcohol and Drug Abuse Patient Records regulations: The Federal rules restrict any use of the information to criminally investigate or prosecute any alcohol or drug abuse patient.[facility] CenterIn the event this information is protected by the Federal Confidentiality of Alcohol and Drug Abuse Patient Records regulations: The Federal rules restrict any use of the information to criminally investigate or prosecute any alcohol or drug abuse patient.[facility] CenterIn the event this information is protected by the Federal Confidentiality of Alcohol and Drug Abuse Patient Records regulations: The Federal rules restrict any use of the information to criminally investigate or prosecute any alcohol or drug abuse patient.[facility] CenterIn the event this information is protected by the Federal Confidentiality of Alcohol and Drug Abuse Patient Records regulations: The Federal rules restrict any use of the information to criminally investigate or prosecute any alcohol or drug abuse patient.[facility] CenterIn the event this information is protected by the Federal Confidentiality of Alcohol and Drug Abuse Patient Records regulations: The Federal rules restrict any use of the information to criminally investigate or prosecute any alcohol or drug abuse patient.[facility] CenterIn the event this information is protected by the Federal Confidentiality of Alcohol and Drug Abuse Patient Records regulations: The Federal rules restrict any use of the information to criminally investigate or prosecute any alcohol or drug abuse patient.[facility] CenterIn the event this information is protected by the Federal Confidentiality of Alcohol and Drug Abuse Patient Records regulations: The Federal rules restrict any use of the information to criminally investigate or prosecute any alcohol or drug abuse patient.[facility] CenterIn the event this information is protected by the Federal Confidentiality of Alcohol and Drug Abuse Patient Records regulations: The Federal rules restrict any use of the information to criminally investigate or prosecute any alcohol or drug abuse patient.[facility] CenterIn the event this information is protected by the Federal Confidentiality of Alcohol and Drug Abuse Patient Records regulations: The Federal rules restrict any use of the information to criminally investigate or prosecute any alcohol or drug abuse patient.[facility] Reason for Visit (unrecogniz ed [...] Care Teams (unrecognized sec tion and content) Automobile Body Repairer Relationship Specialty Start Date End Date Devon Moreira, DO [address] [place] [address] PCP - General 05/27/00 Automobile Body Repairer Relationship Specialty Start Date End Date Devon Moreira, DO [address] [place] [address] PCP - General 05/27/00 Automobile Body Repairer Relationship Specialty Start Date End Date Devon Moreira, DO [address] [place] [address] PCP - General 05/27/00 Automobile Body Repairer Relationship Specialty Start Date End Date Devon Moreira, DO [address] [place] [address] PCP - General 05/27/00 Automobile Body Repairer Relationship Specialty Start Date End Date Devon Moreira, DO [address] [place] [address] PCP - General 05/27/00 Automobile Body Repairer Relationship Specialty Start Date End Date Devon Moreira, DO [address] [place] [address] PCP - General 05/27/00 Automobile Body Repairer Relationship Specialty Start Date End Date Devon Moreira, DO [address] [place] [address] PCP - General 05/27/00 Automobile Body Repairer Relationship Specialty Start Date End Date Devon Moreira, DO [address] [place] [address] PCP - General 05/27/00 Automobile Body Repairer Relationship Specialty Start Date End Date Devon Moreira, DO [address] [place] [address] PCP - General 05/27/00 Automobile Body Repairer Relationship Specialty Start Date End Date Devon Moreira, DO [address] [place] [address] PCP - General 05/27/00 Automobile Body Repairer Relationship Specialty Start Date End Date Devon Moreira, DO [address] [place] [address] PCP - General 05/27/00 Automobile Body Repairer Relationship Specialty Start Date End Date Devon Moreira, DO [address] [place] [address] PCP - General 05/27/00 Automobile Body Repairer Relationship Specialty Start Date End Date Devon Moreira, DO [address] [place] [address] PCP - General 05/27/00 Automobile Body Repairer Relationship Specialty Start Date End Date Devon Moreira, DO [address] [place] [address] PCP - General 05/27/00 Automobile Body Repairer Relationship Specialty Start Date End Date Devon Moreira, DO [address] [place] [address] PCP - General 05/27/00 Automobile Body Repairer Relationship Specialty Start Date End Date Devon Moreira, DO [address] [place] [address] PCP - General 05/27/00 Automobile Body Repairer Relationship Specialty Start Date End Date Devon Moreira, DO [address] [place] [address] PCP - General 05/27/00 Automobile Body Repairer Relationship Specialty Start Date End Date Devon Moreira, DO [address] [place] [address] PCP - General 05/27/00 Automobile Body Repairer Relationship Specialty Start Date End Date Devon Moreira, DO [address] [place] [address] PCP - General 05/27/00 Team Status: Active Member Role Status Dates Devon Ball , DO Primary Care Provider Active Team Status: Inactive Member Role Status Dates Devon Moreira DO Primary Care Provider Active Sadia Aguilar APRN Attending Provider Active Automobile Body Repairer Relationship Specialty Start Date End Date Devon Moreira DO [address] [place] [address] PCP - General 05/27/00 Automobile Body Repairer Relationship Specialty Start Date End Date Devon Moreira DO [address] [place] [address] PCP - General 05/27/00 Automobile Body Repairer Relationship Specialty Start Date End Date Ni Cabrera, DO [address] [facility] [address] [place] [address] PCP - ACO Reach 07/09/22 Devon Moreira MD [address] [place] [address] PCP - General Internal Medicine 07/14/22 PRN Active and Recently Administ ered Medications (unrecognized section and content) Medication Order 01/10/2022 01/11/2022 01/12/2022 lidocaine (PF) 10 mg/mL (1 %) injection (XYLOCAINE) SUBCUTANEOUS, X (OR/PROCEDURE) PRN, Starting on Wed01/12/22 at 1032, Until Wed01/13/22 at 0303, Intraprocedure 1032 (Given - Provid er: Vani Hdz APRN.LCSW) Goals (unrecognized section and content) Goals may [...] BE BASED ON THE PRIMARY CLINICAL RECORDS. [facility]. provides no warranty or guarantee of the accuracy or completeness of information in this document.
[2023-05-19 07:50] LABS: Basophils Absolute Auto 0.1 10^3/uL (0.0-0.1); Basophils Percent Auto 0.7 % (0.2-2.0); Eosinophils Absolute Auto 0.4 10^3/uL (0.0-0.7); Eosinophils Percent Auto 5.1 % (0.9-7.0); Hematocrit 29.2 % (42.0-54.0); Hemoglobin 9.2 g/dL (14.0-18.0); Immature Granulocytes Abs Auto 0.03 10^3/uL (0.00-0.03); Immature Granulocytes Pct Auto 0.4 % (0.0-0.5); Lymphocytes Absolute Auto 2.5 10^3/uL (1.2-3.8); Lymphocytes Percent Auto 33.9 % (20.5-60.0); Mean Corpuscular HGB Conc 31.5 g/dL (29.9-35.2); Mean Corpuscular Hemoglobin 26.5 pg (25.9-34.0); Mean Corpuscular Volume 84.1 fL (80.0-94.0); Mean Platelet Volume 10.7 fL (9.5-13.5); Monocytes Absolute Auto 0.9 10^3/uL (0.3-0.8); Monocytes Percent Auto 11.8 % (1.7-12.0); Neutrophils Absolute Auto 3.6 10^3/uL (1.4-6.5); Neutrophils Percent Auto 48.1 % (43.0-75.0); Platelet Count 203 10^3/uL (150-450); Red Blood Count 3.47 10^6/uL (4.70-6.10); Red Cell Distribution Width 15.6 % (11.0-15.0); White Blood Count 7.4 10^3/uL (4.0-11.0)
[2023-05-19 07:55] LABS: Alanine Aminotransferase 13 U/L (16-63); Albumin Globulin Ratio 0.8; Albumin Level 2.5 g/dL (3.4-5.0); Alkaline Phosphatase 73 U/L (46-116); Anion Gap 11.3; Aspartate Amino Transferase 15 U/L (15-37); BUN Creatinine Ratio 29.9; Bilirubin Total 0.5 mg/dL (0.2-1.0); Calcium 8.2 mg/dL (8.5-10.1); Carbon Dioxide 27.7 mmol/L (21.0-32.0); Chloride 104 mmol/L (98-107); Estimated GFR (African America 52 (>=60); Estimated GFR (Non-African Ame 43 (>=60); Globulin 3.2 g/dL; Glucose 122 mg/dL (74-106); Magnesium 1.9 mg/dL (1.8-2.4); Phosphorus 4.8 mg/dL (2.6-4.7); Sodium 139 mmol/L (136-145); Total Protein 5.7 g/dL (6.4-8.2)
[2023-05-19 08:07] LABS: INR 1.62; Prothrombin Time 16.7 sec (9.0-11.6)
== END 2023-05-19 01:50 | disposition home or self-care (01) ==
LOC: LAB 01:49
PROVIDERS: PCP Internal Medicine; Visit Provider Internal Medicine
DX: N18.9 Chronic kidney disease, unspecified (principal)
CPT/HCPCS: 36415; 80053; 80197; 83735; 84100; 85025; 85610

== ENCOUNTER 2023-05-26 01:10 | Outpatient (REF) | payer MEDICARE, OTHER, SELFPAY ==
--- OUTSIDE RECORDS SUMMARY | 2023-05-26 01:24 | XMS_ITS | CCD ---
Author Organization [facility] Care Team Providers Care Brands Editor Name Role Phone PROVIDER, UNKNOWN Attending Unavailable PROVIDER, UNKNOWN Admitting Unavailable Lillie DO, Devon García Primary Care Provider Ball DO, Devon García Primary Care Provider Ball DO, Devon E Primary Care Provider Ball DO, Devon E Primary Care Provider Ball, Devon Unavailable NABEEL, DR PROSPER Douglas Attending Unavailable NABEEL, DR PROSPER Douglas Admitting Unavailable EYAD ., DR BRANDI García Consulting Unavailable BALL, DR OSORIO Primary Care Unavailable CYN, DR TONYA Manzo Consulting Unavailabl e ZIEBER, DR CURRY Carmona Consulting Unavailable NABEEL, DR PROSPER Douglas Consulting Unavailable TATOCHSHARON ., ALEJA TORRES Consulting Unavailabl e MARKER ., DR WASHINGTON Consulting Unavailable KANCHAN ., MARY ANN Consulting Unavailable BACHRACH, KARTHIK Consulting Unavailable PHOENIX, ASHLEY Cortes Admitting Unavailable PHOENIX, ASHLEY Cortes Attending Unavailable MARIAELENA, DR RICH Hernadnez Consulting Unavailable LILLIE, DR OSORIO Primary Care Unavailable ASHLEY GARIBAY Consulting Unavailable LILLIE, DR OSORIO Primary Care Unavailable BROTHERS, BRANDI [...] Primary Care Unavailable WILLIAM BROOKS Attending Unavailable TODD, WILLIAM Cortes Admitting Unavailable WILLIAM BROOKS Consulting Unavailable RICH TITUS Consulting Unavailable FAWWAD, DIAMOND H Admitting Unavailable FAWWAD, DIAMOND H Attending Unavailable BALL, DR OSORIO Primary Care Unavailable NICOLÁS ., DR CENTENO Consulting Unavailable MARIAELENA, DR RICH Hernandez Consulting Unavailable KRISHNA, DR CURRY Carmona Consulting Unavailable ASHLEY GARIBAY Procedure Practitioner Unava ilASHLEY Connelly Consulting Unavailable NICOLÁS ., DR CENTENO Procedure [...] Care Unavailable FAWWAD, H Attending Unavailable FAWWAD, DIAOMND H Admitting Unavailable BALL, DR OSORIO Primary Care Unavailable HIGHLANDER, ASHLEY Cortes Attending Unavailable HIGHLANDER, ASHLEY Cortes Admitting Unavailable BALL, DR OSORIO Primary Care Unavailable BALL, DR OSORIO Attending Unavailable BALL, DR OSORIO Consulting Unavailable BALL, DR OSORIO Admitting Unavailable BALL, DR OSOIRO Primary Care Unavailable BALL, DR OSORIO Primary Care Unavailable BALL, DR OSORIO Attending Unavailable BALL, DR OSORIO Admitting Unavailable Lillie, DO Osorio Primary Care Provider DAVID Aguilar Attending Provider [phone] Sadia Aguilar Attending Unavailable Sadia Aguilar Admitting Unavailable Devon Moreira Primary Care Unavailable DEVON MOREIRA Referring Unavailable HINA PETERSON Attending Unavailable DEVON MOREIRA Primary Care Unavailable ARTUR CHEN Referring Unavailable DEVON MOREIRA Primary Care Unavailable Ni Cabrera DO Unavailable [phone] Devon Moreira MD Primary Care Provider NI CABRERA Attending Unavailable DEVON MOREIRA Referring Unavailable CAITY IBRAHIM Attending Unavailable MILAGRO QUEEN Referring Unavailable SARTHAK PARNELL Attending Unavailable Allergies Allergy Classification Reported Allergen(s) Allergy Type Date of Onset Reaction(s) Facility (20 sources) Pyridostigmine; Translations: [PYRIDOSTIGMINE BROMIDE] Drug Allergy 2 GI Upset [facility] Work Phone: (1 source) Pyridostigmine Drug Allergy 2 Nausea [...] Inhibitor Start: take 1 tablet by mouth in the [...] Indications: Type 1 diabetes mellitus with nephropathy ([facility]) 3 units breakfast, 5 units lunch, 8 [...] 10 units and notify provider [facility] [place] [place] 155-852-130 MG (6 sources) take 155-852 tablets by mouth twice daily [facility] [place] [place] 155-852-130 MG 1 tablet Orally twice daily Active take 155-852 tablets by mouth four times daily take 155-852 tablets by mouth four times daily [facility] [place] [place] 155-852-130 MG 1 tablet Orally Four times [...] 12/11/2021 Active take 1 tablet by debi every twenty-four hours Comment on above: Take [...] on above: Take 1 tablet by debi every other day. traMADol hydrochloride 50 mg [...] by mouth daily with lunch. [employer] [place] with lunch 7110 mL 0 12/11/2021 Active Comment on above: Take 237 mL by mouth daily with lunch. [employer] [place] with lunch polyethylene glycol 3350 34922 mg powder for oral solution (20 sources) [...] (4 sources) Presence of cardiac pacemaker; Translations: [Cardiac pacemaker in situ] Onset: 3 10-08-2022 Chronic Congestive heart failure; nonhypertensive (1 source) Heart failure, unspecified; Translations: [HEART FAILURE UNSPECIFIED] Onset: 2 Chronic Coronary atherosclerosis and other heart disease (20 sources) Coronary arteriosclerosis; Translations: [Atherosclerotic heart disease of [place] coronary artery without angina pectoris] Onset: 7 [...] current use of immunosuppressive drug; Translations: [Other shelter (current) drug therapy] Episodic Other aftercare (13 sources) Long-term current use of insulin; Translations: [terminal makeup operator (current) use of insulin] Episodic Other aftercare (10 sources) penitentiary (current) use of insulin; Translations: [WELDER FITTER CURRENT USE OF INSULIN] Onset: 2 Episodic Other aftercare (5 sources) terminal makeup operator (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 of anticoagulants; Translations: [WELDER FITTER CURRNT USE ANTICOAGULANTS] Onset: 3 Episodic Other [...] 07-30-2006 Episodic Other aftercare (2 sources) Other shelter (current) drug therapy; Translations: [OTH WELDER FITTER CURRENT DRUG THERAPY] Onset: 02-05-2022 Episodic Other aftercare (4 sources) Encounter for orthopedic aftercare following surgical amputation; Translations: [ENC ORTHOPED AFTERCARE FLW SURG AMP] Onset: 02-05-2022 Episodic Other aftercare (4 sources) terminal makeup operator (current) use of antibiotics; Translations: [FCI CURRENT USE ANTIBIOTICS] Onset: 12-20-2021 Episodic Other aftercare (1 source) penitentiary (current) use of aspirin; Translations: [FCI CURRENT [...] Test Name Value Interpretation Reference Range Facility Office Visiton 05-19-2023 Follow-up visit [id number] Alex Almonte 1945 M Date Provider Department Center 05/19/2023 CAITY PALACIOS CARD [facility] Family History Problem Relation Age of Onset Cancer Mother Aneurysm Father Cancer Father Parkinsonism Father Family Status - Relation Status Age at Mother Father Level of Service:78703 [place] OFFICE/OUTPATIENT ESTABLISHED LOW MDM 20 MIN Reason for Visit and Comments: Follow-up [993824] - 6 month follow up Normal [facility] HbA1c (Bld) [Mass fraction]o n 03-18-2023 Interpretation and review of laboratory results Normal [facility] POCT glycosylated hemoglobin (Hb A1C) docked deviceon 03-18-2023 HbA1c (Bld) [Mass fraction] 7.8 % [facility] CNPRosalie 12-25-2022 CNPN Telephone (TXCTGL) ALEX ALMONTE ([id number]) 1945 M Date Time Provider Department 12/25/22 KIDNEY TXP COORDINATORS TXCTGL During your visit today, we recorded the following information about you: Duane Ryan 12/25/2022 10:41 AM Signed Labs 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 Take one (1) tablet - - insulin lispro 100 unit/mL injection Inject [...] by mouth daily with lunch. 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 [employer] [place] with lunch aspirin, enteric coated (ASPIRIN, ENTERIC [...] 3:56 PM Addendum Asia Pike MD Marullo, Mary Hernandez, can you contact MR Ray and have him lower his tacrolimus (prograf) dose to 1 mg in am and 1 mg in pm from current 2mg in am? thanks! RF Pts RN at [facility] reports pts sister picks up Rx [...] Apply 0. (more content not included)... Normal [facility] Office Visiton 09-09-2022 Follow-up visit [id number] Alex Almonte 1945 M Date Provider Department Center 09/09/2022 1596-SARTHAK PARNELL CARD [facility] Family History Problem Relation Age of Onset Cancer Mother Aneurysm Father Cancer Father Parkinsonism Father Family Status - Relation Status Age at Mother Father Level of Service:52956 [place] OFFICE/OUTPATIENT ESTABLISHED MOD MDM 30-39 MIN Normal [facility] Glucose Poct Glucometerson 0 07-20-2022 Commemt1 Glu2: Cleaned Meter Normal [facility] Comment on above: Result Comment: PERF ORMED BY: [facility] [address] [address] PATHOLOGIST CATALYST OPERATOR CHIEF JOSE F ELLIOTT M.D. Performed By: #### G LULS #### Point of Care testing , Glucose [Mass/Vol] 176 mg/dL Normal [facility] Comment on above: Result Comment: [facility] Glucose Reference Range is dependent on time and content of last meal. Glucose of more than 200 mg/dL in a nonstressed, ambulatory subject supports the diagnosis of Diabetes Mellitus. Performed By: #### G MADY #### Point of Care testing , FK506 (TACROLIMUS) WHOLE BLO ODon 07-12-2022 Tacrolimus (FK506), Blood 10.9 ng/mL Normal 2.0-20.[address] [facility] Comment on above: Result Comment: Trou gh (immediately following transplant) 15.0 . Trough (steady state, 2 weeks or more after transplant): 3.0 - 8.0 . Performed by LC-MS/MS technology. Performed By: #### F K506T ####[facility] P[address] [place], [place] [address]Dr. Farhat Leal CBC AUTO DIFFon 07-10-2022 BASO # 0.0 103/ul Normal 0.0-0.[address] [facility] Comment on above: Performed By: #### C BC ####[facility] Pfhnweoeyi[address] [place], [place] [address]Dr. Farhat Leal Basophils/100 WBC (Bld) 0.5 % Normal 0.2-2.0 [facility] Comment on above: Performed By: #### C BC ####[facility] Lyxec[address]xe[address] [place], [place] [address]Dr. Farhat Leal EO # 0.3 103/ul Normal 0.0-0.7 [facility] Comment on above: Performed By: #### C BC ####[facility] Wykupeiqqx[address] [place], [place] [address]Dr. Farhat Leal Eosinophils/100 WBC (Bld) 4.9 % Normal 0.9-7.0 [facility] Comment on above: Performed By: #### C BC ####[facility] Ogbrqnrajg[address] [place], [place] [address]Dr. Farhat Leal Erythrocyte distribution width (RBC) [Ratio] 13.8 % Normal 11.0-15.0 [facility] Comment on above: Performed By: #### C BC ####[facility] [address] [place] [address]Dr. Farhat Leal Hematocrit (Bld) [Volume fraction] 36.6 % Critically low 42.0-54.[address] [facility] Comment on above: Performed By: #### C BC ####[facility] [address] [place] [address]DrSkylar Farhat Leal Hemoglobin (Bld) [Mass/Vol] 12.2 g/dL Critically low 14.0-18.[address] [facility] Comment on above: Performed By: #### C BC ####[facility] Key[address]vengf[address] [place], [place] [address]DrSkylar Madelynlorri Leal IG # 0.01 10e3/ul Normal 0.00-0.[address] [facility] Comment on above: Performed By: #### C BC ####[facility] Zq[address]ke[address] [place], [place] [address]DrSkylar Leal IG % 0.2 % Normal 0.0-0.[address] [facility] Comment on above: Performed By: #### C BC ####[facility] Zfuek[address]fc[address] [place], [place] [address]DrSkylar Farhat Elvis LYMPH # 2.2 103/ul Normal 1.2-3.8 [facility] Comment on above: Performed By: #### C BC ####[facility] Glf[address]vzpt[address] [place], [place] [address]DrSkylar Madelynlorri Leal Lymphocytes/100 WBC (Bld) 33.9 % Normal 20.5-60.0 [facility] Comment on above: Performed By: #### C BC ####[facility] C[address] [place], [place] [address]DrSkylar Madelynlorri Leal MANUAL DIFF REQ NO Normal [facility] Comment on above: Performed By: #### C BC ####[facility] Ycgolfhjrl[address] [place], [place] [address]DrSkylar Leal MCH (RBC) [Entitic mass] 31.0 pg Normal 25.9-34.[address] [facility] Comment on above: Performed By: #### C BC ####[facility] [address] [place] [id number]. Farhat Leal MCHC (RBC) [Mass/Vol] 33.3 g/dL Normal 29.9-35.[address] [facility] Comment on above: Performed By: #### C BC ####[facility] [address] [place] [id number] Leal MCV (RBC) [Entitic vol] 93.1 fL Normal 80.0-94.[address] [facility] Comment on above: Performed By: #### C BC ####[facility] C[address] [place], [place] [address]DrkSylar Leal MONO # 0.7 103/ul Normal 0.3-0.[address] [facility] Comment on above: Performed By: #### C BC ####[facility] Irrermrjrw[address] [place], [place] [address]Dr. Farhat Leal Monocytes/100 WBC (Bld) 10.8 % Normal 1.7-12.[address] [facility] Comment on above: Performed By: #### C BC ####[facility] Nlxop[address]nqn[address] [place], [place] [address]Dr. Farhat Leal NEUT # 3.2 103/ul Normal 1.4-6.[address] [facility] Comment on above: Performed By: #### C BC ####[facility] Ezooamickn[address] [place], [place] [address]DrSkylar Leal Neutrophils/100 WBC (Bld) 49.7 % Normal 43.0-75.0 [facility] Comment on above: Performed By: #### C BC ####[facility] Qgyftbzlmn[address] [place], [place] [id number] Leal Platelet mean volume (Bld) [Entitic vol] 10.9 fL Normal 9.5-13.5 [facility] Comment on above: Performed By: #### C BC ####[facility] J[address] [place], [place] [address]DrSkylar Leal PLT 195 103/ul Normal 150-450 [facility] Comment on above: Performed By: #### C BC ####[facility] [address] [place] [address]Dr. Farhat Leal RBC 3.93 106/ul Critically low 4.70-6.10 [facility] Comment on above: Performed By: #### C BC ####[facility] [address] [place] [address]Dr. Farhat Leal WBC 6.4 103/ul Normal 4.0-11.[address] [facility] Comment on above: Performed By: #### C BC ####[facility] [address] [place] [address]Dr. Farhat Leal MAGNESIUMon 07-10-2022 Magnesium [Mass/Vol] 1.9 mg/dL Normal 1.8-2.[address] [facility] Comment on above: Performed By: #### Demetrice Manzo PHOS ####[facility] Rq[address] [place], [place] [address]Dr. Farhat Leal PHOSPHORUSon 07-10-2022 Phosphate [Mass/Vol] 4.7 mg/dL Normal 2.6-4.[address] [facility] Comment on above: Performed By: #### HENRI Winters ####[facility] Medeygqeua[address] [place], [place] [address]Dr. Farhat Leal PROF 14(COMP METB)on 023 Albumin [Mass/Vol] 2.7 g/dL Critically low 3.4-5.0 [facility] Comment on above: Performed By: #### C MP ####[facility] [address] [place] [address]Dr. Farhat Leal Albumin/Globulin [Mass ratio] 0.8 {ratio} Normal [facility] Comment on above: Performed By: #### C MP ####[facility] Zwcwcqpjcg[address] [place], [place] [address]Dr. Farhat Leal ALP [Catalytic activity/Vol] 59 U/L Normal 46-116 [facility] Comment on above: Performed By: #### C MP ####[facility] Nbnpzwqgmv[address] [place], [place] [address]Dr. Farhat Leal ALT [Catalytic activity/Vol] 16 U/L Normal 16-[address] [facility] Comment on above: Performed By: #### C MP ####[facility] [address] [place] [address]Dr. Madelynlorri Elvis Anion gap [Moles/Vol] 12.3 mmol/L Normal [facility] Comment on above: Performed By: #### C MP ####[facility] [address] [place] [address]Dr. Madelynlorri Leal AST [Catalytic activity/Vol] 17 U/L Normal 15-[address] [facility] Comment on above: Performed By: #### C MP ####[facility] Cakkwikmaw[address] [place], [place] [address]Dr. Farhat Leal Bilirubin [Mass/Vol] 0.5 mg/dL Normal 0.2-1.[address] [facility] Comment on above: Performed By: #### C MP ####[facility] G[address]zh[address] [place], [place] [address]Dr. Farhat Leal Calcium [Mass/Vol] 8.5 mg/dL Normal 8.5-10.1 [facility] Comment on above: Performed By: #### C MP ####[facility] Lyehestasz[address] [place], [place] [address]Dr. Farhat Leal Chloride [Moles/Vol] 104 mmol/L Normal 98-[address] [facility] Comment on above: Performed By: #### C MP ####[facility] P[address] [place], [place] [address]Dr. Farhat Leal CO2 [Moles/Vol] 27.6 mmol/L Normal 21.0-32.0 [facility] Comment on above: Performed By: #### C MP ####[facility] Yv[address]td[address] [place], [place] [address]Dr. Farhat Leal Creatinine [Mass/Vol] 1.79 mg/dL Critically high 0.70-1.[address] [facility] Comment on above: Performed By: #### C MP ####[facility] Gdwmxsglwc[address] [place], [place] [address]Dr. Farhat Leal EGFR-AF BURMESE 45 mL/min/1.73m2 Critically low >=[address] [facility] Comment on above: Performed By: #### C MP ####[facility] [address] [place] [address]Dr. Farhat Elvis EGFR-NON AF BURMESE 37 mL/min/1.73m2 Critically low >=[address] [facility] Comment on above: Performed By: #### C MP ####[facility] [address] [place] [id number]. Farhat Elvis Globulin (S) [Mass/Vol] 3.2 g/dL Normal [facility] Comment on above: Performed By: #### C MP ####[facility] [address] [place], [place] [address]Dr. Madelynlorri Elvis Glucose [Mass/Vol] 203 mg/dL Critically high 74-106 [facility] Comment on above: Performed By: #### C MP ####[facility] [address] [place] [address]Dr. Farhat Leal Potassium [Moles/Vol] 3.9 mmol/L Normal 3.5-5.[address] [facility] Comment on above: Performed By: #### C MP ####[facility] Z[address]ys[address]py[address] [place], [place] [address]Dr. Madelynlorri Elvis Protein [Mass/Vol] 5.9 g/dL Critically low 6.4-8.2 [facility] Comment on above: Performed By: #### C MP ####[facility] [address] [place] [address]Dr. Madelynlorri Leal Sodium [Moles/Vol] 140 mmol/L Normal 136-145 [facility] Comment on above: Performed By: #### C MP ####[facility] [address] [place] [address]Dr. Farhat Leal Urea nitrogen [Mass/Vol] 61.0 mg/dL Critically high 7.0-18.[address] [facility] Comment on above: Performed By: #### C MP ####[facility] [address] [place], [place] [address]DrSkylar Leal Urea nitrogen/Creatinine [Mass ratio] 34.1 mg/mg Normal [facility] Comment on above: Performed By: #### C MP ####[facility] X[address]rd[address] [place], [place] [address]DrSkylar Leal PROTIMEon 07-10-2022 INR Coag (PPP) [Relative time] 2.95 {INR} Normal [facility] Comment on above: Performed By: #### P T ####[facility] Go[address]vde[address] [place], [place] [address]DrSkylar Leal INR GUIDELINES SEE BELOW Normal [facility] Comment on above: Result Comment: MALINA RED INR: 2.0 - 3.0 CONDITIONS NOT LISTED BELOW 2.5 - 3.5 FOR PROSTHETIC HEART VALVE REPLACEMENT 2.5 - 3.5 RECURRENT THROMBOSIS Performed By: #### P T ####[facility] [address] [place], [place] [address]DrSkylar Leal PT Coag (PPP) [Time] 29.4 s Critically high 9.0-11.6 [facility] Comment on above: Performed By: #### P T ####[facility] W[address]wsw[address] [place], [place] [address]DrSkylar Leal FK506 (TACROLIMUS) WHOLE BLO ODon 07-07-2022 Tacrolimus (FK506), Blood 8.3 ng/mL Normal 2.0-20.0 [facility] Comment on above: Result Comment: Trou gh (immediately following transplant) 15.0 . Trough (steady state, 2 weeks or more after transplant): 3.0 - 8.0 . Performed by LC-MS/MS technology. Performed By: #### F K506T ####[facility] [address] [place], [place] [address]DrSkylar Leal CBC AUTO DIFFon 07-03-2022 BASO # 0.0 103/ul Normal 0.0-0.[address] [facility] Comment on above: Performed By: #### C BC ####[facility] C[address] [place], [place] [address]DrSkylar Leal Basophils/100 WBC (Bld) 0.6 % Normal 0.2-2.0 [facility] Comment on above: Performed By: #### C BC ####[facility] [address] [place] [address]Dr. Farhat Leal EO # 0.3 103/ul Normal 0.0-0.[address] [facility] Comment on above: Performed By: #### C BC ####[facility] [address] [place] [address]Dr. Farhat Leal Eosinophils/100 WBC (Bld) 4.1 % Normal 0.9-7.[address] [facility] Comment on above: Performed By: #### C BC ####[facility] [address] [place], [place] [address]Dr. Farhat Leal Erythrocyte distribution width (RBC) [Ratio] 14.0 % Normal 11.0-15.[address] [facility] Comment on above: Performed By: #### C BC ####[facility] [address] [place], [place] [address]Dr. Farhat Leal Hematocrit (Bld) [Volume fraction] 35.9 % Critically low 42.0-54.[address] [facility] Comment on above: Performed By: #### C BC ####[facility] F[address] [place], [place] [address]Dr. Farhat Leal Hemoglobin (Bld) [Mass/Vol] 12.0 g/dL Critically low 14.0-18.[address] [facility] Comment on above: Performed By: #### C BC ####[facility] [facility] Ncvkdvjf[address] [place], [place] [address]DrSkylar Farhat Leal IG # 0.04 10e3/ul Critically high 0.00-0.03 [facility] Comment on above: Performed By: #### C BC ####[facility] Lygsxrpirs[address] [place], [place] [address]Dr. Madelynlorri Leal IG % 0.6 % Critically high 0.0-0.5 [facility] Comment on above: Performed By: #### C BC ####[facility] Mdnvmpqrvd[address] [place], [place] [address]DrSkylar Leal LYMPH # 1.5 103/ul Normal 1.2-3.[address] [facility] Comment on above: Performed By: #### C BC ####[facility] Vyhfzmjtov64[address] [place] [address]Dr. Farhat Leal Lymphocytes/100 WBC (Bld) 21.5 % Normal 20.5-60.[address] [facility] Comment on above: Performed By: #### C BC ####[facility] Wwipbxthkb68[address] [place] [address]Dr. Farhat Leal MANUAL DIFF REQ NO Normal [facility] Comment on above: Performed By: #### C BC ####[facility] Pbgyxwduqb3960 [place] [address]Dr. Farhat Leal MCH (RBC) [Entitic mass] 30.8 pg Normal 25.9-34.[address] [facility] Comment on above: Performed By: #### C BC ####[facility] Qettlhshjz[address] [place], [place] [address]Dr. Farhat Leal MCHC (RBC) [Mass/Vol] 33.4 g/dL Normal 29.9-35.[address] [facility] Comment on above: Performed By: #### C BC ####[facility] Kmovmrqaov[address] [place], [place] [address]Dr. Farhat Leal MCV (RBC) [Entitic vol] 92.1 fL Normal 80.0-94.[address] [facility] Comment on above: Performed By: #### C BC ####[facility] Gcqzrckbvm75[address] [place] [address]Dr. Farhat Leal MONO # 0.6 103/ul Normal 0.3-0.8 [facility] Comment on above: Performed By: #### C BC ####[facility] Whkesspzvh264[address] [place], [place] [address]Dr. Farhat Leal Monocytes/100 WBC (Bld) 8.7 % Normal 1.7-12.0 [facility] Comment on above: Performed By: #### C BC ####[facility] Okgnixbwhk[address] [place], [place] [address]Dr. Farhat Leal NEUT # 4.4 103/ul Normal 1.4-6.[address] [facility] Comment on above: Performed By: #### C BC ####[facility] Rhgdnuqxmh0609 [place] [address]Dr. Farhat Elvis Neutrophils/100 WBC (Bld) 64.5 % Normal 43.0-75.[address] [facility] Comment on above: Performed By: #### C BC ####[facility] Automyfugt6585 [place] [id number]. Madelynlorri Elvis Platelet mean volume (Bld) [Entitic vol] 10.1 fL Normal 9.5-13.[address] [facility] Comment on above: Performed By: #### C BC ####[facility] Vndgakaykn53[address] [place] [address]Dr. Farhat Leal PLT 177 103/ul Normal 150-[address] [facility] Comment on above: Performed By: #### C BC ####[facility] Ueoydoiuwr3958 [place] [address]Dr. Farhat Leal RBC 3.90 106/ul Critically low 4.70-6.10 [facility] Comment on above: Performed By: #### C BC ####[facility] Lsizvvdvxe0214 [place] [address]Dr. Farhat Leal WBC 6.8 103/ul Normal 4.0-11.[address] [facility] Comment on above: Performed By: #### C BC ####[facility] Jwntsjavzo6406 [place] [address]DrSkylar Leal PROF 14(COMP METB)on 023 Albumin [Mass/Vol] 2.8 g/dL Critically low 3.4-5.0 [facility] Comment on above: Performed By: #### C MP ####[facility] Qhkcjgvjbe6846 [place] [address]DrSkylar Leal Albumin/Globulin [Mass ratio] 0.8 {ratio} Normal [facility] Comment on above: Performed By: #### C MP ####[facility] Dycswseqei7654 [place] [phone]. Farhat Leal ALP [Catalytic activity/Vol] 68 U/L Normal 46-[address] [facility] Comment on above: Performed By: #### C MP ####[facility] Ylydiwiiis9696 [place] [phone]. Farhat Leal ALT [Catalytic activity/Vol] 20 U/L Normal 16-[address] [facility] Comment on above: Performed By: #### C MP ####[facility] Oczxjktlrc[address] [place] [phone]. Farhat Leal Anion gap [Moles/Vol] 11.1 mmol/L Normal Th e [facility] Comment on above: Performed By: #### C MP ####[facility] Iejckqadzx4468 [place] [address]Dr. Farhat Leal AST [Catalytic activity/Vol] 22 U/L Normal 15-[address] [facility] Comment on above: Performed By: #### C MP ####[facility] Wapravajbm9819 [place] [address]Dr. Farhat Elvis Bilirubin [Mass/Vol] 0.4 mg/dL Normal 0.2-1.[address] [facility] Comment on above: Performed By: #### C MP ####[facility] Bcehcsqaot4549 [place] [address]Dr. Farhat Elvis Calcium [Mass/Vol] 8.5 mg/dL Normal 8.5-10.1 [facility] Comment on above: Performed By: #### C MP ####[facility] Kajcuoocva2414 [place] [address]Dr. Farhat Elvis Chloride [Moles/Vol] 106 mmol/L Normal 98-[address] [facility] Comment on above: Performed By: #### C MP ####[facility] Tvvbqrsmlx5346 [place] [address]Dr. Farhat Elvis CO2 [Moles/Vol] 29.1 mmol/L Normal 21.0-32.0 The [facility] Comment on above: Performed By: #### C MP ####[facility] Qkbzgctvii5252 [place] [address]Dr. Farhat Elvis Creatinine [Mass/Vol] 1.70 mg/dL Critically high 0.70-1.30 [facility] Comment on above: Performed By: #### C MP ####[facility] Nzdpsutszo5918 [place] [address]Dr. Farhat Leal EGFR-AF BURMESE 48 mL/min/1.73m2 Critically low >=[address] [facility] Comment on above: Performed By: #### C MP ####[facility] Hzliyklyjs6436 [place] [address]Dr. Farhat Leal EGFR-NON AF BURMESE 39 mL/min/1.73m2 Critically low >=[address] [facility] Comment on above: Performed By: #### C MP ####[facility] Rknimvkcve6046 [place] [address]Dr. Farhat Elvis Globulin (S) [Mass/Vol] 3.6 g/dL Normal [facility] Comment on above: Performed By: #### C MP ####[facility] Kxknafgcyb6781 [place] [address]Dr. Farhat Elvis Glucose [Mass/Vol] 312 mg/dL Critically high 74-106 [facility] Comment on above: Performed By: #### C MP ####[facility] Nyrbsgpfdf9678 [place] [address]Dr. Farhat Elvis Potassium [Moles/Vol] 4.2 mmol/L Normal 3.5-5.[address] [facility] Comment on above: Performed By: #### C MP ####[facility] Iicscnaeuf1052 [place] [address]Dr. Farhat Elvis Protein [Mass/Vol] 6.4 g/dL Normal 6.4-8.2 [facility] Comment on above: Performed By: #### C MP ####[facility] Iskaghntwx6731 [place] [address]Dr. Farhat Leal Sodium [Moles/Vol] 142 mmol/L Normal 136-145 [facility] Comment on above: Performed By: #### C MP ####[facility] Ixjvucvfqq5804 [place] [address]Dr. Farhat Elvis Urea nitrogen [Mass/Vol] 49.0 mg/dL Critically high 7.0-18.[address] [facility] Comment on above: Performed By: #### C MP ####[facility] Dziyxrcnsc[address] [place], [place] [address]Dr. Farhat Leal Urea nitrogen/Creatinine [Mass ratio] 28.8 mg/mg Normal [facility] Comment on above: Performed By: #### C MP ####[facility] Ppkdowpgjm4[address] [place], [place] [address]Dr. Farhat Leal PROTIMEon 07-03-2022 INR Coag (PPP) [Relative time] 2.23 {INR} Normal [facility] Comment on above: Performed By: #### P T ####[facility] Ysnoegcuky[address] [place], [place] [address]Dr. Farhat Leal INR GUIDELINES SEE BELOW Normal [facility] Comment on above: Result Comment: MALINA RED INR: 2.0 - 3.0 CONDITIONS NOT LISTED BELOW 2.5 - 3.5 FOR PROSTHETIC HEART VALVE REPLACEMENT 2.5 - 3.5 RECURRENT THROMBOSIS Performed By: #### P T ####[facility] Qgiihzvwic[address] [place], [place] [address]Dr. Farhat Leal PT Coag (PPP) [Time] 22.6 s Critically high 9.0-11.6 [facility] Comment on above: Performed By: #### P T ####[facility] Sgxrxaakpv[address] [place], [place] [address]Dr. Farhat Leal FK506 (TACROLIMUS) WHOLE BLO ODon 06-29-2022 Tacrolimus (FK506), Blood 12.2 ng/mL Normal 2.0-20.[address] [facility] Comment on above: Result Comment: Trou gh (immediately following transplant) 15.0 . Trough (steady state, 2 weeks or more after transplant): 3.0 - 8.0 . Performed by LC-MS/MS technology. Performed By: #### F K506T ####[facility] Cdryhhxhkc[address] [place], [place] [address]Dr. Farhat Leal CBC AUTO DIFFon 06-26-2022 BASO # 0.0 103/ul Normal 0.0-0.[address] [facility] Comment on above: Performed By: #### C BC ####[facility] Lcglucbhai3723 [place] [phone]. Farhat Leal Basophils/100 WBC (Bld) 0.5 % Normal 0.2-2.0 [facility] Comment on above: Performed By: #### C BC ####[facility] Gpqqrrljlp[address] [place], [place] [address]Dr. Farhat Leal EO # 0.3 103/ul Normal 0.0-0.7 [facility] Comment on above: Performed By: #### C BC ####[facility] Oobdjbsyeg94[address] [place], [place] [address]Dr. Farhat Leal Eosinophils/100 WBC (Bld) 4.3 % Normal 0.9-7.0 [facility] Comment on above: Performed By: #### C BC ####[facility] Bjxlgnhazn23[address] [place], [place] [address]Dr. Farhat Leal Erythrocyte distribution width (RBC) [Ratio] 14.1 % Normal 11.0-15.0 [facility] Comment on above: Performed By: #### C BC ####[facility] Obnpthaioc[address] [place], [place] [address]Dr. Farhat Leal Hematocrit (Bld) [Volume fraction] 35.4 % Critically low 42.0-54.[address] [facility] Comment on above: Performed By: #### C BC ####[facility] Mqnkivwxwz39[address] [place], [place] [address]Dr. Farhat Leal Hemoglobin (Bld) [Mass/Vol] 11.8 g/dL Critically low 14.0-18.0 [facility] Comment on above: Performed By: #### C BC ####[facility] Hdldkyxkhd[address] [place], [place] [address]Dr. Farhat Leal IG # 0.02 10e3/ul Normal 0.00-0.03 [facility] Comment on above: Performed By: #### C BC ####[facility] Cvznokhzne[address] [place], [place] [address]Dr. Farhat Leal IG % 0.3 % Normal 0.0-0.5 [facility] Comment on above: Performed By: #### C BC ####[facility] Diostyuzit9993 [place] [phone]. Farhat Leal LYMPH # 2.4 103/ul Normal 1.2-3.[address] [facility] Comment on above: Performed By: #### C BC ####[facility] Cpcyrvbqay7306 [place] [address]Dr. Farhat Elvis Lymphocytes/100 WBC (Bld) 40.4 % Normal 20.5-60.[address] [facility] Comment on above: Performed By: #### C BC ####[facility] Fprctvzwgk6074 [place] [address]Dr. Madelynlorri Leal MANUAL DIFF REQ NO Normal [facility] Comment on above: Performed By: #### C BC ####[facility] Uugfdjtkeb1383 [place] [address]Dr. Farhat Elvis MCH (RBC) [Entitic mass] 31.0 pg Normal 25.9-34.[address] [facility] Comment on above: Performed By: #### C BC ####[facility] Eetcoqpkwa2059 [place] [address]Dr. Farhat Leal MCHC (RBC) [Mass/Vol] 33.3 g/dL Normal 29.9-35.2 [facility] Comment on above: Performed By: #### C BC ####[facility] Ewvzcochfy0026 [place] [address]Dr. Farhat Leal MCV (RBC) [Entitic vol] 92.9 fL Normal 80.0-94.0 [facility] Comment on above: Performed By: #### C BC ####[facility] Dkkdqysckr9769 [place] [address]Dr. Farhat Elvis MONO # 0.7 103/ul Normal 0.3-0.8 [facility] Comment on above: Performed By: #### C BC ####[facility] Wokxxtnvin8838 [place] [address]Dr. Madelynlorri Leal Monocytes/100 WBC (Bld) 11.1 % Normal 1.7-12.0 [facility] Comment on above: Performed By: #### C BC ####[facility] Eeccwblqns9688 [place] [address]Dr. Farhat Leal NEUT # 2.6 103/ul Normal 1.4-6.[address] [facility] Comment on above: Performed By: #### C BC ####[facility] Elyzkfhxel5914 [place] [address]Dr. Farhat Leal Neutrophils/100 WBC (Bld) 43.4 % Normal 43.0-75.[address] [facility] Comment on above: Performed By: #### C BC ####[facility] Gktbqqforj3965 [place] [address]Dr. Farhat Leal Platelet mean volume (Bld) [Entitic vol] 10.4 fL Normal 9.5-13.[address] [facility] Comment on above: Performed By: #### C BC ####[facility] Cjspffhwai[address] [place], [place] [address]Dr. Madelynlorri Elvis PLT 211 103/ul Normal 150-[address] [facility] Comment on above: Performed By: #### C BC ####[facility] Pldrjwbnnf[address] [place], [place] [address]Dr. Farhat Leal RBC 3.81 106/ul Critically low 4.70-6.10 [facility] Comment on above: Performed By: #### C BC ####[facility] Ohwnwxuhfz[address] [place], [place] [address]Dr. Farhat Leal WBC 6.0 103/ul Normal 4.0-11.[address] [facility] Comment on above: Performed By: #### C BC ####[facility] Sootgkfzpw[address] [place], [place] [address]Dr. Farhat Leal PROF 14(COMP METB)on 023 Albumin [Mass/Vol] 2.6 g/dL Critically low 3.4-5.0 [facility] Comment on above: Performed By: #### C MP ####[facility] Txbfthrtde[address] [place], [place] [address]Dr. Farhat Leal Albumin/Globulin [Mass ratio] 0.8 {ratio} Normal [facility] Comment on above: Performed By: #### C MP ####[facility] Fkbrgkuqdg5223 [place] [address]Dr. Farhat Leal ALP [Catalytic activity/Vol] 64 U/L Normal 46-[address] [facility] Comment on above: Performed By: #### C MP ####[facility] Jwijgvvpam4029 [place] [address]Dr. Farhat Leal ALT [Catalytic activity/Vol] 18 U/L Normal 16-[address] [facility] Comment on above: Performed By: #### C MP ####[facility] Ruywmpjrvi9066 [place] [address]Dr. Farhat Leal Anion gap [Moles/Vol] 10.2 mmol/L Normal [facility] Comment on above: Performed By: #### C MP ####[facility] Semxbwqjme[address] [place], [place] [address]Dr. Farhat Leal AST [Catalytic activity/Vol] 16 U/L Normal 15-[address] [facility] Comment on above: Performed By: #### C MP ####[facility] [address]qytolelek[address] [place], [place] [address]Dr. Farhat Leal Bilirubin [Mass/Vol] 0.6 mg/dL Normal 0.2-1.[address] [facility] Comment on above: Performed By: #### C MP ####[facility] Ehmvntgzrl[address] [place], [place] [address]Dr. Farhat Leal Calcium [Mass/Vol] 8.5 mg/dL Normal 8.5-10.1 [facility] Comment on above: Performed By: #### C MP ####[facility] Pfwkxzkuhl6952 [place] [address]Dr. Farhat Leal Chloride [Moles/Vol] 106 mmol/L Normal 98-[address] [facility] Comment on above: Performed By: #### C MP ####[facility] [address]qrgygepfq[address] [place], [place] [address]Dr. Farhat Leal CO2 [Moles/Vol] 29.8 mmol/L Normal 21.0-32.0 [facility] Comment on above: Performed By: #### C MP ####[facility] Avwduqymvo6360 [place] [phone]. Farhat Leal Creatinine [Mass/Vol] 1.60 mg/dL Critically high 0.70-1.[address] [facility] Comment on above: Performed By: #### C MP ####[facility] Ycimoimwkm9153 [place] [address]Dr. Farhat Leal EGFR-AF BURMESE 51 mL/min/1.73m2 Critically low >=[address] [facility] Comment on above: Performed By: #### C MP ####[facility] Dugctdhcdz4645 [place] [address]Dr. Farhat Leal EGFR-NON AF BURMESE 42 mL/min/1.73m2 Critically low >=[address] [facility] Comment on above: Performed By: #### C MP ####[facility] Ofleaqmcrf0846 [place] [address]Dr. Farhat Leal Globulin (S) [Mass/Vol] 3.4 g/dL Normal [facility] Comment on above: Performed By: #### C MP ####[facility] Neepkccfwa0679 [place] [address]Dr. Farhat Leal Glucose [Mass/Vol] 178 mg/dL Critically high 74-106 [facility] Comment on above: Performed By: #### C MP ####[facility] Nekybldnrm4617 [place] [address]Dr. Farhat Leal Potassium [Moles/Vol] 4.0 mmol/L Normal 3.5-5.[address] [facility] Comment on above: Performed By: #### C MP ####[facility] Tdxxoxobtr1546 [place] [address]Dr. Farhat Leal Protein [Mass/Vol] 6.0 g/dL Critically low 6.4-8.2 [facility] Comment on above: Performed By: #### C MP ####[facility] Qzzvmzkauh0198 [place] [phone]. Farhat Leal Sodium [Moles/Vol] 142 mmol/L Normal 136-145 [facility] Comment on above: Performed By: #### C MP ####[facility] Tcuhlmaish9700 [place] [address]Dr. Farhat Leal Urea nitrogen [Mass/Vol] 49.0 mg/dL Critically high 7.0-18.0 [facility] Comment on above: Performed By: #### C MP ####[facility] Etswfpenzy6281 [place] [address]Dr. Farhat Leal Urea nitrogen/Creatinine [Mass ratio] 30.6 mg/mg Normal [facility] Comment on above: Performed By: #### C MP ####[facility] Tjppdbiwfo3874 [place] [address]Dr. Farhat Leal PROTIMEon 06-26-2022 INR Coag (PPP) [Relative time] 1.77 {INR} Normal [facility] Comment on above: Performed By: #### P T ####[facility] Dqfezoipgu[address] [place], [place] [address]Dr. Farhat Leal INR GUIDELINES SEE BELOW Normal [facility] Comment on above: Result Comment: MALINA RED INR: 2.0 - 3.0 CONDITIONS NOT LISTED BELOW 2.5 - 3.5 FOR PROSTHETIC HEART VALVE REPLACEMENT 2.5 - 3.5 RECURRENT THROMBOSIS Performed By: #### P T ####[facility] Ujnmxoxukm[address] [place], [place] [address]Dr. Farhat Leal PT Coag (PPP) [Time] 18.2 s Critically high 9.0-11.6 [facility] Comment on above: Performed By: #### P T ####[facility] Dozgnkednh[address] [place], [place] [address]Dr. Farhat Leal FK506 (TACROLIMUS) WHOLE BLO ODon 06-22-2022 Tacrolimus (FK506), Blood 24.5 ng/mL Invalid Interpretation Code 2.0-20.0 [facility] Comment on above: Result Comment: Trou gh (immediately following transplant) 15.0 . Trough (steady state, 2 weeks or more after transplant): 3.0 - 8.0 . Performed by LC-MS/MS technology.Patient drug level exceeds published reference range. Evaluateclinically for signs of potential toxicity. Performed By: #### F [id number] ####[facility] Ntdefftqxz5099 [place] [phone]. Farhat Leal CBC AUTO DIFFon 06-19-2022 BASO # 0.1 103/ul Normal 0.0-0.1 [facility] Comment on above: Performed By: #### C BC ####[facility] Xhnpwjmbdl[address] [place], [place] [address]Dr. Madelynlorri Leal Basophils/100 WBC (Bld) 0.7 % Normal 0.2-2.0 [facility] Comment on above: Performed By: #### C BC ####[facility] Xntdkanmxf[address] [place], [place] [address]Dr. Madelynlorri Leal EO # 0.4 103/ul Normal 0.0-0.7 [facility] Comment on above: Performed By: #### C BC ####[facility] Dbctytvnrd[address] [place], [place] [address]Dr. Madelynlorri Leal Eosinophils/100 WBC (Bld) 5.7 % Normal 0.9-7.0 [facility] Comment on above: Performed By: #### C BC ####[facility] Vqogpgfsge[address] [place], [place] [address]Dr. Madelynlorri Leal Erythrocyte distribution width (RBC) [Ratio] 14.5 % Normal 11.0-15.0 [facility] Comment on above: Performed By: #### C BC ####[facility] Drwijdzrww[address] [place], [place] [address]Dr. Farhat Leal Hematocrit (Bld) [Volume fraction] 34.1 % Critically low 42.0-54.0 [facility] Comment on above: Performed By: #### C BC ####[facility] Huuuotfczx[address] [place], [place] [address]Dr. Madelynlorri Leal Hemoglobin (Bld) [Mass/Vol] 11.3 g/dL Critically low 14.0-18.0 [facility] Comment on above: Performed By: #### C BC ####[facility] Exqmpssiys[address] [place], [place] [address]Dr. Farhat Leal IG # 0.02 10e3/ul Normal 0.00-0.03 [facility] Comment on above: Performed By: #### C BC ####[facility] Kdodvpidmt7691 [place] [phone]. Madelynlorri Leal IG % 0.3 % Normal 0.0-0.[address] [facility] Comment on above: Performed By: #### C BC ####[facility] Kxawsczkgi8734 [place] [phone]. Farhat Elvis LYMPH # 3.1 103/ul Normal 1.2-3.8 [facility] Comment on above: Performed By: #### C BC ####[facility] Bdjpkrzthg0729 [place] [address]Dr. Madelynlorri Leal Lymphocytes/100 WBC (Bld) 40.6 % Normal 20.5-60.[address] [facility] Comment on above: Performed By: #### C BC ####[facility] Elcrcvovqx[address] [place] [address]Dr. Farhat Leal MANUAL DIFF REQ NO Normal [facility] Comment on above: Performed By: #### C BC ####[facility] Tnnwiaqyoh43[address] [place] [id number]. Farhat Elvis MCH (RBC) [Entitic mass] 30.6 pg Normal 25.9-34.[address] [facility] Comment on above: Performed By: #### C BC ####[facility] Wrxesfyrub40[address] [place] [id number]. Farhat Elvis MCHC (RBC) [Mass/Vol] 33.1 g/dL Normal 29.9-35.2 [facility] Comment on above: Performed By: #### C BC ####[facility] Yfjrjajpnx93[address] [place] [address]Dr. Farhat Leal MCV (RBC) [Entitic vol] 92.4 fL Normal 80.0-94.0 [facility] Comment on above: Performed By: #### C BC ####[facility] Uubzkiefqu[address] [place], [place] [address]Dr. Farhat Leal MONO # 0.8 103/ul Normal 0.3-0.8 [facility] Comment on above: Performed By: #### C BC ####[facility] Yniwhklifd9[address] [place] [phone]. Farhat Leal Monocytes/100 WBC (Bld) 10.6 % Normal 1.7-12.[address] [facility] Comment on above: Performed By: #### C BC ####[facility] Xozycabkkg3518 [place] [phone]. Farhat Leal NEUT # 3.2 103/ul Normal 1.4-6.[address] [facility] Comment on above: Performed By: #### C BC ####[facility] Glwqryjrju8352 [place] [phone]. Madelynlorri Leal Neutrophils/100 WBC (Bld) 42.1 % Critically low 43.0-75.[address] [facility] Comment on above: Performed By: #### C BC ####[facility] Krxvebdcvj[address] [place] [address]Dr. Madelynlorri Elvis Platelet mean volume (Bld) [Entitic vol] 10.6 fL Normal 9.5-13.[address] [facility] Comment on above: Performed By: #### C BC ####[facility] Hwnjtuymsb2854 [place] [phone]. Farhat Elvis PLT 187 103/ul Normal 150-[address] [facility] Comment on above: Performed By: #### C BC ####[facility] Ylfptgpbpj5882 [place] [phone]. Madelynlorri Leal RBC 3.69 106/ul Critically low 4.70-6.10 [facility] Comment on above: Performed By: #### C BC ####[facility] Smpuypfubq5457 [place] [phone]. Farhat Leal WBC 7.7 103/ul Normal 4.0-11.[address] [facility] Comment on above: Performed By: #### C BC ####[facility] Fppeuynbjz80[address] [place] [address]Dr. Farhat Leal PROF 14(COMP METB)on 023 Albumin [Mass/Vol] 2.5 g/dL Critically low 3.4-5.0 [facility] Comment on above: Performed By: #### C MP ####[facility] Cddflqgqlf7[address] [place] [address]Dr. Madelynlorri Elvis Albumin/Globulin [Mass ratio] 0.8 {ratio} Normal [facility] Comment on above: Performed By: #### C MP ####[facility] Flybrsygts[address] [place] [address]Dr. Farhat Leal ALP [Catalytic activity/Vol] 60 U/L Normal 46-[address] [facility] Comment on above: Performed By: #### C MP ####[facility] Alwdaleozj5[address] [place] [address]Dr. Farhat Leal ALT [Catalytic activity/Vol] 16 U/L Normal 16-[address] [facility] Comment on above: Performed By: #### C MP ####[facility] Euixyojwxb90[address] [place], [place] [address]Dr. Farhat Leal Anion gap [Moles/Vol] 9.1 mmol/L Normal [facility] Comment on above: Performed By: #### C MP ####[facility] Scrsaldqmy332[address] [place], [place] [address]Dr. Farhat Leal AST [Catalytic activity/Vol] 31 U/L Normal 15-[address] [facility] Comment on above: Performed By: #### C MP ####[facility] Osckfockib[address] [place], [place] [address]Dr. Farhat Leal Bilirubin [Mass/Vol] 0.3 mg/dL Normal 0.2-1.[address] [facility] Comment on above: Performed By: #### C MP ####[facility] Dukmpidfoc419[address] [place], [place] [address]Dr. Farhat Leal Calcium [Mass/Vol] 8.2 mg/dL Critically low 8.5-10.1 [facility] Comment on above: Performed By: #### C MP ####[facility] Eeioteybje424[address] [place], [place] [address]Dr. Farhat Leal Chloride [Moles/Vol] 106 mmol/L Normal 98-[address] [facility] Comment on above: Performed By: #### C MP ####[facility] Soepnumsrk9[address] [place] [phone]. Farhat Leal CO2 [Moles/Vol] 27.0 mmol/L Normal 21.0-32.0 [facility] Comment on above: Performed By: #### C MP ####[facility] Oagwrisyvf7628 [place] [phone]. Farhat Leal Creatinine [Mass/Vol] 1.51 mg/dL Critically high 0.70-1.[address] [facility] Comment on above: Performed By: #### C MP ####[facility] Xmmexdshjh6183 [place] [address]Dr. Farhat Leal EGFR-AF BURMESE 55 mL/min/1.73m2 Critically low >=[address] [facility] Comment on above: Performed By: #### C MP ####[facility] Calvrvbqdu46[address] [place] [address]Dr. Farhat Elvis EGFR-NON AF BURMESE 45 mL/min/1.73m2 Critically low >=[address] [facility] Comment on above: Performed By: #### C MP ####[facility] Jaopzupdtq6929 [place] [phone]. Farhat Leal Globulin (S) [Mass/Vol] 3.2 g/dL Normal [facility] Comment on above: Performed By: #### C MP ####[facility] Sfrzpnnxjh83[address] [place] [address]Dr. Farhat Leal Glucose [Mass/Vol] 165 mg/dL Critically high 74-106 [facility] Comment on above: Performed By: #### C MP ####[facility] Uwfeylxafe3437 [place] [phone]. Farhat Leal Potassium [Moles/Vol] 4.1 mmol/L Normal 3.5-5.[address] [facility] Comment on above: Performed By: #### C MP ####[facility] Tnzxrzqsop6[address] [place], [place] [address]Dr. Farhat Leal Protein [Mass/Vol] 5.7 g/dL Critically low 6.4-8.2 [facility] Comment on above: Performed By: #### C MP ####[facility] Wwqjbqubmd[address] [place], [place] [address]Dr. Farhat Leal Sodium [Moles/Vol] 138 mmol/L Normal 136-145 [facility] Comment on above: Performed By: #### C MP ####[facility] Tdqrwgtryl69[address] [place], [place] [address]Dr. Farhat Leal Urea nitrogen [Mass/Vol] 51.0 mg/dL Critically high 7.0-18.[address] [facility] Comment on above: Performed By: #### C MP ####[facility] Zusyfmmwmk39[address] [place], [place] [address]Dr. Farhat Leal Urea nitrogen/Creatinine [Mass ratio] 33.8 mg/mg Normal [facility] Comment on above: Performed By: #### C MP ####[facility] Tzcavsfurx312[address] [place], [place] [address]Dr. Farhat Leal FK506 (TACROLIMUS) WHOLE BLO ODon 06-15-2022 Tacrolimus (FK506), Blood 16.4 ng/mL Normal 2.0-20.[address] [facility] Comment on above: Result Comment: Trou gh (immediately following transplant) 15.0 . Trough (steady state, 2 weeks or more after transplant): 3.0 - 8.0 . Performed by LC-MS/MS technology. Performed By: #### F K506T ####[facility] Znlivavzwr[address] [place], [place] [address]Dr. Farhat Leal PROTIMEon 06-15-2022 INR Coag (PPP) [Relative time] 1.64 {INR} Normal [facility] Comment on above: Performed By: #### P T ####[facility] Zhkbffxgay[address] [place], [place] [address]Dr. Farhat Leal INR GUIDELINES SEE BELOW Normal [facility] Comment on above: Result Comment: MALINA RED INR: 2.0 - 3.0 CONDITIONS NOT LISTED BELOW 2.5 - 3.5 FOR PROSTHETIC HEART VALVE REPLACEMENT 2.5 - 3.5 RECURRENT THROMBOSIS Performed By: #### P T ####[facility] Nalinopdfl[address] [place], [place] [address]Dr. Farhat Leal PT Coag (PPP) [Time] 16.9 s Critically high 9.0-11.6 [facility] Comment on above: Performed By: #### P T ####[facility] Rttgegdlfb[address] [place], [place] [address]Dr. Farhat Elvis CBC AUTO DIFFon 06-12-2022 BASO # 0.0 103/ul Normal 0.0-0.1 [facility] Comment on above: Performed By: #### C BC ####[facility] Nhgboxvdob[address] [place], [place] [address]Dr. Farhat Leal Basophils/100 WBC (Bld) 0.4 % Normal 0.2-2.0 [facility] Comment on above: Performed By: #### C BC ####[facility] Gnbdpvmlzf[address] [place], [place] [address]Dr. Farhat Leal EO # 0.4 103/ul Normal 0.0-0.7 [facility] Comment on above: Performed By: #### C BC ####[facility] Skndlkybjz[address] [place], [place] [address]Dr. Farhat Leal Eosinophils/100 WBC (Bld) 5.4 % Normal 0.9-7.0 [facility] Comment on above: Performed By: #### C BC ####[facility] Iedeyejlrk[address] [place], [place] [address]Dr. Farhat Leal Erythrocyte distribution width (RBC) [Ratio] 14.7 % Normal 11.0-15.0 [facility] Comment on above: Performed By: #### C BC ####[facility] Tierjxgpzf[address] [place], [place] [address]Dr. Farhat Leal Hematocrit (Bld) [Volume fraction] 34.8 % Critically low 42.0-54.0 [facility] Comment on above: Performed By: #### C BC ####[facility] Ijarwikizi[address] [place], [place] [address]Dr. Farhat Leal Hemoglobin (Bld) [Mass/Vol] 11.7 g/dL Critically low 14.0-18.0 [facility] Comment on above: Performed By: #### C BC ####[facility] Mjcxbvdjye38[address] [place] [phone]. Farhat Leal IG # 0.02 10e3/ul Normal 0.00-0.03 [facility] Comment on above: Performed By: #### C BC ####[facility] Hhnwhypunc4386 [place] [phone]. Farhat Elvis IG % 0.3 % Normal 0.0-0.5 [facility] Comment on above: Performed By: #### C BC ####[facility] Zheicnlyqa[address] [place] [address]Dr. Farhat Elvis LYMPH # 2.5 103/ul Normal 1.2-3.8 [facility] Comment on above: Performed By: #### C BC ####[facility] Uleynkpunq60[address] [place] [address]Dr. Farhat Leal Lymphocytes/100 WBC (Bld) 36.8 % Normal 20.5-60.0 [facility] Comment on above: Performed By: #### C BC ####[facility] Rimiqxjkhb[address] [place] [address]Dr. Madelynlorri Leal MANUAL DIFF REQ NO Normal [facility] Comment on above: Performed By: #### C BC ####[facility] Lseqddsqif0175 [place] [address]Dr. Farhat Elvis MCH (RBC) [Entitic mass] 30.9 pg Normal 25.9-34.0 [facility] Comment on above: Performed By: #### C BC ####[facility] Dnaslepwve3529 [place] [address]Dr. Farhat Elvis MCHC (RBC) [Mass/Vol] 33.6 g/dL Normal 29.9-35.2 [facility] Comment on above: Performed By: #### C BC ####[facility] Ywcsmugmar59[address] [place] [address]Dr. Farhat Elvis MCV (RBC) [Entitic vol] 91.8 fL Normal 80.0-94.0 [facility] Comment on above: Performed By: #### C BC ####[facility] Xewsnqvkte6349 [place] [phone]. Farhat Leal MONO # 0.8 103/ul Normal 0.3-0.8 [facility] Comment on above: Performed By: #### C BC ####[facility] Upvysdkvzb1042 [place] [address]Dr. Farhat Leal Monocytes/100 WBC (Bld) 11.9 % Normal 1.7-12.0 [facility] Comment on above: Performed By: #### C BC ####[facility] Rdyebbpzvf2087 [place] [address]Dr. Farhat Leal NEUT # 3.1 103/ul Normal 1.4-6.5 [facility] Comment on above: Performed By: #### C BC ####[facility] Pyhxpbxcyn33[address] [place] [address]Dr. Farhat Leal Neutrophils/100 WBC (Bld) 45.2 % Normal 43.0-75.0 [facility] Comment on above: Performed By: #### C BC ####[facility] Tzcypgacnp3903 [place] [phone]. Farhat Leal Platelet mean volume (Bld) [Entitic vol] 10.5 fL Normal 9.5-13.5 [facility] Comment on above: Performed By: #### C BC ####[facility] Atewnvsszk8709 [place] [address]Dr. Farhat Leal PLT 175 103/ul Normal 150-450 [facility] Comment on above: Performed By: #### C BC ####[facility] Cbaftexphe2098 [place] [address]Dr. Farhat Leal RBC 3.79 106/ul Critically low 4.70-6.10 [facility] Comment on above: Performed By: #### C BC ####[facility] Aciliujqao2471 [place] [address]Dr. Farhat Leal WBC 6.8 103/ul Normal 4.0-11.0 [facility] Comment on above: Performed By: #### C BC ####[facility] Pvbeywnzrx8271 [place] [phone]. Farhat Leal MAGNESIUMon 06-12-2022 Magnesium [Mass/Vol] 1.6 mg/dL Critically low 1.8-2.[address] [facility] Comment on above: Performed By: #### C MP, MG, PHOS ####[facility] Wdmzaztxri60[address] [place] [address]Dr. Farhat Leal PHOSPHORUSon 06-12-2022 Phosphate [Mass/Vol] 3.8 mg/dL Normal 2.6-4.[address] [facility] Comment on above: Performed By: #### C MP, MG, PHOS ####[facility] Rieskykzfj3169 [place] [address]Dr. Farhat Leal PROF 14(COMP METB)on 023 Albumin [Mass/Vol] 2.6 g/dL Critically low 3.4-5.0 [facility] Comment on above: Performed By: #### C MP, MG, PHOS ####[facility] Cdgosyswxu0246 [place] [address]Dr. Farhat Leal Albumin/Globulin [Mass ratio] 0.8 {ratio} Normal [facility] Comment on above: Performed By: #### C MP, MG, PHOS ####[facility] Yxfymmlikv0697 [place] [address]Dr. Farhat Leal ALP [Catalytic activity/Vol] 64 U/L Normal 46-[address] [facility] Comment on above: Performed By: #### C MP, MG, PHOS ####[facility] Pkvwgwkgfk3001 [place] [address]Dr. Farhat Leal ALT [Catalytic activity/Vol] 18 U/L Normal 16-[address] [facility] Comment on above: Performed By: #### C MP, MG, PHOS ####[facility] Ftfrinrgpn9345 [place] [address]Dr. Farhat Leal Anion gap [Moles/Vol] 12.9 mmol/L Normal [facility] Comment on above: Performed By: #### C MP, MG, PHOS ####[facility] Hbalonrgmo6682 [place] [address]DrSkylar Leal AST [Catalytic activity/Vol] 18 U/L Normal 15-37 [facility] Comment on above: Performed By: #### C MP, MG, PHOS ####[facility] Obymvtqguo7197 [place] [address]Dr. Farhat Leal Bilirubin [Mass/Vol] 0.4 mg/dL Normal 0.2-1.[address] [facility] Comment on above: Performed By: #### C MP, MG, PHOS ####[facility] Nvplhmqbel[address] [place], [place] [address]Dr. Farhat Leal Calcium [Mass/Vol] 8.7 mg/dL Normal 8.5-10.1 [facility] Comment on above: Performed By: #### C MP, MG, PHOS ####[facility] Lxvvpscods[address] [place], [place] [address]Dr. Farhat Leal Chloride [Moles/Vol] 105 mmol/L Normal 98-107 [facility] Comment on above: Performed By: #### C MP, MG, PHOS ####[facility] Kxtetfkfku[address] [place], [place] [address]Dr. Farhat Leal CO2 [Moles/Vol] 27.9 mmol/L Normal 21.0-32.0 The [facility] Comment on above: Performed By: #### C MP, MG, PHOS ####[facility] Zrhjrvlzti[address] [place], [place] [address]Dr. Farhat Leal Creatinine [Mass/Vol] 1.53 mg/dL Critically high 0.70-1.[address] [facility] Comment on above: Performed By: #### C MP, MG, PHOS ####[facility] Njequhamvp[address] [place], [place] [address]Dr. Farhat Leal EGFR-AF BURMESE 54 mL/min/1.73m2 Critically low >=60 [facility] Comment on above: Performed By: #### C MP, MG, PHOS ####[facility] Wcynmdmyny[address] [place], [place] [address]Dr. Farhat Leal EGFR-NON AF BURMESE 44 mL/min/1.73m2 Critically low >=60 [facility] Comment on above: Performed By: #### C MP, MG, PHOS ####[facility] Zzuvgzxhki5470 [place] [address]Dr. Farhat Leal Globulin (S) [Mass/Vol] 3.4 g/dL Normal [facility] Comment on above: Performed By: #### C MP, MG, PHOS ####[facility] Fewpvdnqeu0362 [place] [address]Dr. Farhat Leal Glucose [Mass/Vol] 179 mg/dL Critically high 74-106 [facility] Comment on above: Performed By: #### C MP, MG, PHOS ####[facility] Jqlijkbrym[address] [place], [place] [address]Dr. Farhat Leal Potassium [Moles/Vol] 3.8 mmol/L Normal 3.5-5.[address] [facility] Comment on above: Performed By: #### C MP, MG, PHOS ####[facility] Plmprazlmb7[address] [place], [place] [address]Dr. Farhat Leal Protein [Mass/Vol] 6.0 g/dL Critically low 6.4-8.2 [facility] Comment on above: Performed By: #### C MP, MG, PHOS ####[facility] Ibflhforma[address] [place], [place] [address]Dr. Farhat Leal Sodium [Moles/Vol] 142 mmol/L Normal 136-145 [facility] Comment on above: Performed By: #### C MP, MG, PHOS ####[facility] Echryedlxa[address] [place], [place] [address]Dr. Farhat Leal Urea nitrogen [Mass/Vol] 56.0 mg/dL Critically high 7.0-18.[address] [facility] Comment on above: Performed By: #### C MP, MG, PHOS ####[facility] Jqgmujdzuv8[address] [place], [place] [address]Dr. Farhat Leal Urea nitrogen/Creatinine [Mass ratio] 36.6 mg/mg Normal [facility] Comment on above: Performed By: #### C MP, MG, PHOS ####[facility] S[address]fohwjvz[address] [place], [place] [address]Dr. Farhat Leal FK506 (TACROLIMUS) WHOLE BLO ODon 06-08-2022 Tacrolimus (FK506), Blood 13.2 ng/mL Normal 2.0-20.[address] [facility] Comment on above: Result Comment: Trou gh (immediately following transplant) 15.0 . Trough (steady state, 2 weeks or more after transplant): 3.0 - 8.0 . Performed by LC-MS/MS technology. Performed By: #### F K506T ####[facility] Kdptpsewsq[address] [place], [place] [address]Dr. Farhat Elvis CBC AUTO DIFFon 06-05-2022 BASO # 0.1 103/ul Normal 0.0-0.1 [facility] Comment on above: Performed By: #### C BC ####[facility] Cdznwtqrpi[address] [place], [place] [address]Dr. Farhat Leal Basophils/100 WBC (Bld) 0.8 % Normal 0.2-2.0 [facility] Comment on above: Performed By: #### C BC ####[facility] Vmusdriwzp[address] [place], [place] [address]Dr. Madelynlorri Leal EO # 0.3 103/ul Normal 0.0-0.7 [facility] Comment on above: Performed By: #### C BC ####[facility] Ofieefhnfk7[address] [place], [place] [address]Dr. Farhat Leal Eosinophils/100 WBC (Bld) 4.7 % Normal 0.9-7.0 [facility] Comment on above: Performed By: #### C BC ####[facility] Vqpujwtuef[address] [place], [place] [address]Dr. Farhat Leal Erythrocyte distribution width (RBC) [Ratio] 15.1 % Critically high 11.0-15.0 [facility] Comment on above: Performed By: #### C BC ####[facility] Tatnkebiqn[address] [place], [place] [address]Dr. Farhat Leal Hematocrit (Bld) [Volume fraction] 35.5 % Critically low 42.0-54.0 [facility] Comment on above: Performed By: #### C BC ####[facility] Dlqyhzlqum[address] [place] [phone]. Farhat Leal Hemoglobin (Bld) [Mass/Vol] 11.7 g/dL Critically low 14.0-18.0 [facility] Comment on above: Performed By: #### C BC ####[facility] Cjyjanbopd6[address] [place] [address]Dr. Farhat Leal IG # 0.01 10e3/ul Normal 0.00-0.03 [facility] Comment on above: Performed By: #### C BC ####[facility] B[address]jozisosd[address] [place], [place] [address]Dr. Farhat Leal IG % 0.2 % Normal 0.0-0.5 [facility] Comment on above: Performed By: #### C BC ####[facility] Fayvgnoyss[address] [place], [place] [address]Dr. Farhat Leal LYMPH # 2.1 103/ul Normal 1.2-3.8 [facility] Comment on above: Performed By: #### C BC ####[facility] Kiqcfclacn[address] [place], [place] [address]Dr. Madelynlorri Leal Lymphocytes/100 WBC (Bld) 34.5 % Normal 20.5-60.0 [facility] Comment on above: Performed By: #### C BC ####[facility] Seknlbzpnx[address] [place], [place] [address]Dr. Farhat Leal MANUAL DIFF REQ NO Normal [facility] Comment on above: Performed By: #### C BC ####[facility] Jnxqajqjrj[address] [place], [place] [address]Dr. Farhat Leal MCH (RBC) [Entitic mass] 30.6 pg Normal 25.9-34.0 [facility] Comment on above: Performed By: #### C BC ####[facility] Swxtadvcks[address] [place], [place] [address]Dr. Farhat Leal MCHC (RBC) [Mass/Vol] 33.0 g/dL Normal 29.9-35.2 [facility] Comment on above: Performed By: #### C BC ####[facility] Vadwbkplze60[address] [place] [phone]. Farhat Leal MCV (RBC) [Entitic vol] 92.9 fL Normal 80.0-94.0 [facility] [facility] Comment on above: Performed By: #### C BC ####[facility] Vjjunxpoaj[address] [place] [id number]. Farhat Leal MONO # 0.7 103/ul Normal 0.3-0.8 [facility] Comment on above: Performed By: #### C BC ####[facility] Nmgkromusg1578 [place] [phone]. Farhat Leal Monocytes/100 WBC (Bld) 11.4 % Normal 1.7-12.0 [facility] Comment on above: Performed By: #### C BC ####[facility] Xbyoyrqxvx2199 [place] [phone]. Farhat Leal NEUT # 2.9 103/ul Normal 1.4-6.5 [facility] Comment on above: Performed By: #### C BC ####[facility] Ludtfrixby4324 [place] [phone]. Farhat Leal Neutrophils/100 WBC (Bld) 48.4 % Normal 43.0-75.0 [facility] Comment on above: Performed By: #### C BC ####[facility] Vedoudwhum8846 [place] [phone]. Farhat Leal Platelet mean volume (Bld) [Entitic vol] 10.7 fL Normal 9.5-13.5 [facility] Comment on above: Performed By: #### C BC ####[facility] Mfsxgrqtrz1907 [place] [phone]. Farhat Leal PLT 185 103/ul Normal 150-450 [facility] Comment on above: Performed By: #### C BC ####[facility] Kwgtdnoguk9687 [place] [phone]. Farhat Leal RBC 3.82 106/ul Critically low 4.70-6.10 [facility] Comment on above: Performed By: #### C BC ####[facility] Zutbaekeft9357 [place] [phone]. Farhat Leal WBC 6.0 103/ul Normal 4.0-11.0 [facility] Comment on above: Performed By: #### C BC ####[facility] Tcnfatdygf[address] [place] [address]Dr. Madelynlorri Leal MAGNESIUMon 06-05-2022 Magnesium [Mass/Vol] 1.9 mg/dL Normal 1.8-2.4 The [facility] Comment on above: Performed By: #### P HOS, MG ####[facility] Jnfyzhrugb28[address] [place] [address]Dr. Farhat Leal PHOSPHORUSon 06-05-2022 Phosphate [Mass/Vol] 4.4 mg/dL Normal 2.6-4.7 [facility] Comment on above: Performed By: #### P HOS, MG ####[facility] Miocwifdzp68[address] [place] [address]Dr. Farhat Leal PROTIMEon 06-05-2022 INR Coag (PPP) [Relative time] 2.16 {INR} Normal [facility] Comment on above: Performed By: #### P T ####[facility] Eurbctbqxn94[address] [place] [address]Dr. Farhat Leal INR GUIDELINES SEE BELOW Normal The [facility] Comment on above: Result Comment: MALINA RED INR: 2.0 - 3.0 CONDITIONS NOT LISTED BELOW 2.5 - 3.5 FOR PROSTHETIC HEART VALVE REPLACEMENT 2.5 - 3.5 RECURRENT THROMBOSIS Performed By: #### P T ####[facility] Ktredkalam4[address] [place] [address]Dr. Farhat Leal PT Coag (PPP) [Time] 21.9 s Critically high 9.0-11.6 The [facility] Comment on above: Performed By: #### P T ####[facility] Zvpbwailbf[address] [place], [place] [address]Dr. Farhat Leal FK506 (TACROLIMUS) WHOLE BLO ODon 06-01-2022 Tacrolimus (FK506), Blood 26.4 ng/mL Invalid Interpretation Code 2.0-20.0 [facility] Comment on above: Result Comment: Trou gh (immediately following transplant) 15.0 . Trough (steady state, 2 weeks or more after transplant): 3.0 - 8.0 . Performed by LC-MS/MS technology.Patient drug level exceeds published reference range. Evaluateclinically for signs of potential toxicity. Performed By: #### F K506T ####[facility] Ywojgpqplm97[address] [place] [address]Dr. Farhat Leal CBC AUTO DIFFon 05-29-2022 BASO # 0.0 103/ul Normal 0.0-0.[address] [facility] Comment on above: Performed By: #### C BC ####[facility] Ghcoaonldt[address] [place], [place] [address]Dr. Farhat Leal Basophils/100 WBC (Bld) 0.6 % Normal 0.2-2.[address] [facility] Comment on above: Performed By: #### C BC ####[facility] Pgasmjkgfm[address] [place], [place] [address]Dr. Farhat Leal EO # 0.3 103/ul Normal 0.0-0.[address] [facility] Comment on above: Performed By: #### C BC ####[facility] Sorumugbim[address] [place], [place] [address]Dr. Farhat Leal Eosinophils/100 WBC (Bld) 4.7 % Normal 0.9-7.[address] [facility] Comment on above: Performed By: #### C BC ####[facility] Iybykwhhkp[address] [place], [place] [address]Dr. Farhat Leal Erythrocyte distribution width (RBC) [Ratio] 15.3 % Critically high 11.0-15.[address] [facility] Comment on above: Performed By: #### C BC ####[facility] Vacchwisce[address] [place], [place] [address]Dr. Farhat Leal Hematocrit (Bld) [Volume fraction] 36.6 % Critically low 42.0-54.[address] [facility] Comment on above: Performed By: #### C BC ####[facility] Gpsctkmdhu[address] [place], [place] [address]Dr. Farhat Leal Hemoglobin (Bld) [Mass/Vol] 12.3 g/dL Critically low 14.0-18.[address] [facility] Comment on above: Performed By: #### C BC ####[facility] Usfkhftyvq6307 [place] [address]DrSkylar Leal IG # 0.02 10e3/ul Normal 0.00-0.[address] [facility] Comment on above: Performed By: #### C BC ####[facility] Kqtsyudhof8433 [place] [address]DrSkylar Leal IG % 0.3 % Normal 0.0-0.[address] [facility] Comment on above: Performed By: #### C BC ####[facility] Aeihvvdqog2275 [place] [address]DrSkylar Leal LYMPH # 2.8 103/ul Normal 1.2-3.[address] [facility] Comment on above: Performed By: #### C BC ####[facility] Jfwxowzoyh7915 [place] [address]DrSkylar Leal Lymphocytes/100 WBC (Bld) 44.4 % Normal 20.5-60.[address] [facility] Comment on above: Performed By: #### C BC ####[facility] Eovacmserq2697 [place] [address]DrSkylar Leal MANUAL DIFF REQ NO Normal [facility] Comment on above: Performed By: #### C BC ####[facility] Hnafqqyfaz39[address] [place] [address]DrSkylar Leal MCH (RBC) [Entitic mass] 30.4 pg Normal 25.9-34.[address] [facility] Comment on above: Performed By: #### C BC ####[facility] Wjrhwmiwfn1110 [place] [phone] Leal MCHC (RBC) [Mass/Vol] 33.6 g/dL Normal 29.9-35.2 [facility] Comment on above: Performed By: #### C BC ####[facility] Xokfnymore5747 [place] [phone] Leal MCV (RBC) [Entitic vol] 90.4 fL Normal 80.0-94.[address] [facility] Comment on above: Performed By: #### C BC ####[facility] Jakmkfozkr8688 [place] [phone]. Farhat Leal MONO # 0.7 103/ul Normal 0.3-0.8 [facility] Comment on above: Performed By: #### C BC ####[facility] Ohhepnyzdv7429 [place] [address]Dr. Farhat Leal Monocytes/100 WBC (Bld) 10.7 % Normal 1.7-12.[address] [facility] Comment on above: Performed By: #### C BC ####[facility] Uakcrkfmoa5[address] [place] [address]Dr. Farhat Leal NEUT # 2.5 103/ul Normal 1.4-6.[address] [facility] Comment on above: Performed By: #### C BC ####[facility] Qrlzzdxewe2389 [place] [address]Dr. Farhat Leal Neutrophils/100 WBC (Bld) 39.3 % Critically low 43.0-75.0 [facility] Comment on above: Performed By: #### C BC ####[facility] Jpuybujlri8280 [place] [address]Dr. Farhat Leal Platelet mean volume (Bld) [Entitic vol] 10.5 fL Normal 9.5-13.5 The [facility] Comment on above: Performed By: #### C BC ####[facility] Ekrpctoqmi8462 [place] [address]Dr. Farhat Leal PLT 190 103/ul Normal 150-450 [facility] Comment on above: Performed By: #### C BC ####[facility] Rkxzhlqhfs8729 [place] [phone]. Farhat Leal RBC 4.05 106/ul Critically low 4.70-6.10 [facility] Comment on above: Performed By: #### C BC ####[facility] Neomgzldvp8689 [place] [phone]. Farhat Leal WBC 6.4 103/ul Normal 4.0-11.0 The [facility] Comment on above: Performed By: #### C BC ####[facility] Cxvqxmyfcr0521 [place] [address]Dr. Farhat Leal PROF 14(COMP METB)on 023 Albumin [Mass/Vol] 2.5 g/dL Critically low 3.4-5.0 [facility] Comment on above: Performed By: #### C MP ####[facility] Jnccaxnrte27[address] [place] [address]Dr. Farhat Leal Albumin/Globulin [Mass ratio] 0.8 {ratio} Normal [facility] Comment on above: Performed By: #### C MP ####[facility] Amjhyvzkhi3261 [place] [address]Dr. Farhat Leal ALP [Catalytic activity/Vol] 61 U/L Normal 46-[address] [facility] Comment on above: Performed By: #### C MP ####[facility] Xwfwnyjenq8[address] [place], [place] [address]Dr. Farhat Leal ALT [Catalytic activity/Vol] 16 U/L Normal 16-[address] [facility] Comment on above: Performed By: #### C MP ####[facility] Rrrlfslrkt[address] [place], [place] [address]Dr. Farhat Leal Anion gap [Moles/Vol] 12.3 mmol/L Normal [facility] Comment on above: Performed By: #### C MP ####[facility] Ghmmwfspvj655[address] [place], [place] [address]Dr. Farhat Leal AST [Catalytic activity/Vol] 18 U/L Normal 15-[address] [facility] Comment on above: Performed By: #### C MP ####[facility] Sgokhdftfo7[address] [place], [place] [address]Dr. Farhat Leal Bilirubin [Mass/Vol] 0.5 mg/dL Normal 0.2-1.[address] [facility] Comment on above: Performed By: #### C MP ####[facility] Oikncrubhe[address] [place], [place] [address]Dr. Farhat Leal Calcium [Mass/Vol] 8.6 mg/dL Normal 8.5-10.1 [facility] Comment on above: Performed By: #### C MP ####[facility] Ylrwwpgvxg1815 [place] [phone]. Farhat Leal Chloride [Moles/Vol] 105 mmol/L Normal 98-[address] [facility] Comment on above: Performed By: #### C MP ####[facility] Sewfxqugbi0483 [place] [phone]. Farhat Leal CO2 [Moles/Vol] 28.6 mmol/L Normal 21.0-32.0 [facility] Comment on above: Performed By: #### C MP ####[facility] Wtwkdzpart6795 [place] [address]Dr. Farhat Leal Creatinine [Mass/Vol] 1.47 mg/dL Critically high 0.70-1.[address] [facility] Comment on above: Performed By: #### C MP ####[facility] Scprofnxxp7[address] [place], [place] [address]Dr. Farhat Elvis EGFR-AF BURMESE 56 mL/min/1.73m2 Critically low >=[address] [facility] Comment on above: Performed By: #### C MP ####[facility] Heyapkxfah1932 [place] [address]Dr. Farhat Leal EGFR-NON AF BURMESE 46 mL/min/1.73m2 Critically low >=[address] [facility] Comment on above: Performed By: #### C MP ####[facility] Gbomkdqrba0618 [place] [address]Dr. Farhat Elvis Globulin (S) [Mass/Vol] 3.3 g/dL Normal [facility] Comment on above: Performed By: #### C MP ####[facility] Asgclezrrj5319 [place] [phone]. Farhat Elvis Glucose [Mass/Vol] 164 mg/dL Critically high 74-106 T [facility] Comment on above: Performed By: #### C MP ####[facility] Tctxmcforp1771 [place] [address]Dr. Farhat Elvis Potassium [Moles/Vol] 3.9 mmol/L Normal 3.5-5.[address] [facility] Comment on above: Performed By: #### C MP ####[facility] Gzwqsywfpj7685 [place] [address]Dr. Farhat Leal Protein [Mass/Vol] 5.8 g/dL Critically low 6.4-8.2 Th e [facility] Comment on above: Performed By: #### C MP ####[facility] Pptbxxlecu0157 [place] [address]Dr. Farhat Leal Sodium [Moles/Vol] 142 mmol/L Normal 136-145 [facility] Comment on above: Performed By: #### C MP ####[facility] Rohsgwczjt5269 [place] [address]Dr. Farhat Leal Urea nitrogen [Mass/Vol] 53.0 mg/dL Critically high 7.0-18.[address] [facility] Comment on above: Performed By: #### C MP ####[facility] Elssbuciss[address] [place], [place] [address]Dr. Farhat Leal Urea nitrogen/Creatinine [Mass ratio] 36.1 mg/mg Normal [facility] Comment on above: Performed By: #### C MP ####[facility] Gudiqtljnn[address] [place], [place] [address]Dr. Farhat Leal PROTIMEon 05-29-2022 INR Coag (PPP) [Relative time] 2.41 {INR} Normal [facility] Comment on above: Performed By: #### P T ####[facility] Dpjuwrpypj[address] [place], [place] [address]Dr. Farhat Leal INR GUIDELINES SEE BELOW Normal [facility] Comment on above: Result Comment: MALINA RED INR: 2.0 - 3.0 CONDITIONS NOT LISTED BELOW 2.5 - 3.5 FOR PROSTHETIC HEART VALVE REPLACEMENT 2.5 - 3.5 RECURRENT THROMBOSIS Performed By: #### P T ####[facility] Bziavfepcx[address] [place], [place] [address]Dr. Farhat Leal PT Coag (PPP) [Time] 24.3 s Critically high 9.0-11.[address] [facility] Comment on above: Performed By: #### P T ####[facility] Relyudymyv1077 [place] [address]Dr. Farhat Leal FK506 (TACROLIMUS) WHOLE BLO ODon 05-25-2022 Tacrolimus (FK506), Blood 5.1 ng/mL Normal 2.0-20.0 [facility] Comment on above: Result Comment: Trou gh (immediately following transplant) 15.0 . Trough (steady state, 2 weeks or more after transplant): 3.0 - 8.0 . Performed by LC-MS/MS technology. Performed By: #### F K506T ####[facility] Ddewwybljr[address] [place], [place] [address]Dr. Farhat Leal CBC AUTO DIFFon 05-22-2022 BASO # 0.0 103/ul Normal 0.0-0.[address] [facility] Comment on above: Performed By: #### C BC ####[facility] Pnjiecchce[address] [place], [place] [address]Dr. Farhat Leal Basophils/100 WBC (Bld) 0.5 % Normal 0.2-2.0 The [facility] Comment on above: Performed By: #### C BC ####[facility] Etsdvpvnjn69[address] [place], [place] [address]Dr. Farhat Leal EO # 0.2 103/ul Normal 0.0-0.7 [facility] Comment on above: Performed By: #### C BC ####[facility] Vvmcxmnmsb[address] [place], [place] [address]Dr. Farhat Leal Eosinophils/100 WBC (Bld) 4.0 % Normal 0.9-7.0 [facility] Comment on above: Performed By: #### C BC ####[facility] Maeznfyfwg380[address] [place], [place] [address]Dr. Farhat Leal Erythrocyte distribution width (RBC) [Ratio] 15.5 % Critically high 11.0-15.0 The [facility] Comment on above: Performed By: #### C BC ####[facility] Cnvjhgmflw[address] [place], [place] [address]Dr. Farhat Leal Hematocrit (Bld) [Volume fraction] 34.1 % Critically low 42.0-54.0 [facility] Comment on above: Performed By: #### C BC ####[facility] Nvoyvdgmvc7409 [place] [phone]. Farhat Leal Hemoglobin (Bld) [Mass/Vol] 11.3 g/dL Critically low 14.0-18.[address] [facility] Comment on above: Performed By: #### C BC ####[facility] Cnthsgqtrs2424 [place] [phone]. Farhat Leal IG # 0.03 10e3/ul Normal 0.00-0.[address] [facility] Comment on above: Performed By: #### C BC ####[facility] Xyxicpuqgn4703 [place] [phone]. Farhat Leal IG % 0.5 % Normal 0.0-0.[address] [facility] Comment on above: Performed By: #### C BC ####[facility] Qhgdzgyzqp6840 [place] [address]Dr. Farhat Leal LYMPH # 2.1 103/ul Normal 1.2-3.8 [facility] Comment on above: Performed By: #### C BC ####[facility] Myvdpxwtit8971 [place] [phone]. Farhat Leal Lymphocytes/100 WBC (Bld) 34.6 % Normal 20.5-60.[address] [facility] Comment on above: Performed By: #### C BC ####[facility] Feffhykwwn5020 [place] [phone]. Farhat Leal MANUAL DIFF REQ NO Normal [facility] Comment on above: Performed By: #### C BC ####[facility] Rxnbebvdba8353 [place] [phone]. Farhat Leal MCH (RBC) [Entitic mass] 30.3 pg Normal 25.9-34.0 [facility] Comment on above: Performed By: #### C BC ####[facility] Fdqcksligh0149 [place] [phone]. Farhat Leal MCHC (RBC) [Mass/Vol] 33.1 g/dL Normal 29.9-35.2 [facility] Comment on above: Performed By: #### C BC ####[facility] Dbmaxgmqta7968 [place] [phone]. Farhat Leal MCV (RBC) [Entitic vol] 91.4 fL Normal 80.0-94.0 [facility] Comment on above: Performed By: #### C BC ####[facility] Armgsuftus9251 [place] [phone]. Farhat Leal MONO # 0.7 103/ul Normal 0.3-0.8 [facility] Comment on above: Performed By: #### C BC ####[facility] Mwgoeyveie4690 [place] [phone]. Farhat Leal Monocytes/100 WBC (Bld) 11.6 % Normal 1.7-12.0 [facility] Comment on above: Performed By: #### C BC ####[facility] Gfjzmhjbga[address] [place], [place] [address]Dr. Farhat Leal NEUT # 2.9 103/ul Normal 1.4-6.5 [facility] Comment on above: Performed By: #### C BC ####[facility] Apgyfjfclx[address] [place], [place] [address]Dr. Farhat Leal Neutrophils/100 WBC (Bld) 48.8 % Normal 43.0-75.0 [facility] Comment on above: Performed By: #### C BC ####[facility] Zelmkktgdv4[address] [place], [place] [address]Dr. Farhat Leal Platelet mean volume (Bld) [Entitic vol] 10.9 fL Normal 9.5-13.5 [facility] Comment on above: Performed By: #### C BC ####[facility] Sqnwlresdk[address] [place], [place] [address]Dr. Farhat Leal PLT 186 103/ul Normal 150-450 [facility] Comment on above: Performed By: #### C BC ####[facility] Xumfuwumyh[address] [place], [place] [address]Dr. Farhat Leal RBC 3.73 106/ul Critically low 4.70-6.10 [facility] Comment on above: Performed By: #### C BC ####[facility] Ihzqgjaohe65[address] [place] [address]Dr. Farhat Leal WBC 6.0 103/ul Normal 4.0-11.[address] [facility] Comment on above: Performed By: #### C BC ####[facility] Vamcvlvzda0384 [place] [address]Dr. Farhat Leal PROF 14(COMP METB)on 023 Albumin [Mass/Vol] 2.7 g/dL Critically low 3.4-5.0 [facility] Comment on above: Performed By: #### C MP ####[facility] Nqnvoxjwrz3449 [place] [address]Dr. Farhat Leal Albumin/Globulin [Mass ratio] 0.8 {ratio} Normal [facility] Comment on above: Performed By: #### C MP ####[facility] Lvlblxxxee9119 [place] [address]Dr. Farhat Leal ALP [Catalytic activity/Vol] 60 U/L Normal 46-[address] [facility] Comment on above: Performed By: #### C MP ####[facility] Kstdcwcyhc5434 [place] [address]Dr. Farhat Leal ALT [Catalytic activity/Vol] 17 U/L Normal 16-[address] [facility] Comment on above: Performed By: #### C MP ####[facility] Qgynaeubdq6879 [place] [address]Dr. Farhat Leal Anion gap [Moles/Vol] 9.6 mmol/L Normal [facility] Comment on above: Performed By: #### C MP ####[facility] Iqtzcqkqcd4338 [place] [address]Dr. Farhat Leal AST [Catalytic activity/Vol] 14 U/L Critically low 15-[address] [facility] Comment on above: Performed By: #### C MP ####[facility] Nxjoujzrme2286 [place] [address]Dr. Farhat Leal Bilirubin [Mass/Vol] 0.5 mg/dL Normal 0.2-1.[address] [facility] Comment on above: Performed By: #### C MP ####[facility] Jqmbkadlyw3154 [place] [phone]. Farhat Leal Calcium [Mass/Vol] 8.4 mg/dL Critically low 8.5-10.1 [facility] Comment on above: Performed By: #### C MP ####[facility] Byjrcjneia3734 [place] [phone]. Farhat Leal Chloride [Moles/Vol] 104 mmol/L Normal 98-[address] [facility] Comment on above: Performed By: #### C MP ####[facility] Qymabyosxf5451 [place] [address]Dr. Farhat Leal CO2 [Moles/Vol] 27.2 mmol/L Normal 21.0-32.0 [facility] Comment on above: Performed By: #### C MP ####[facility] Sgtcjirkrv[address] [place], [place] [address]Dr. Farhat Leal Creatinine [Mass/Vol] 1.24 mg/dL Normal 0.70-1.[address] [facility] Comment on above: Performed By: #### C MP ####[facility] Qttywgcscl[address] [place], [place] [address]Dr. Farhat Leal EGFR-AF BURMESE >60 Normal >=60 [facility] Comment on above: Performed By: #### C MP ####[facility] Gctpxntsjg[address] [place], [place] [address]Dr. Farhat Elvis EGFR-NON AF BURMESE 57 mL/min/1.73m2 Critically low >=[address] [facility] Comment on above: Performed By: #### C MP ####[facility] Uxrhekpvur[address] [place], [place] [address]Dr. Farhat Leal Globulin (S) [Mass/Vol] 3.3 g/dL Normal [facility] Comment on above: Performed By: #### C MP ####[facility] [address]rtnfpxgmf39[address] [place] [address]Dr. Farhat Leal Glucose [Mass/Vol] 275 mg/dL Critically high 74-106 T [facility] Comment on above: Performed By: #### C MP ####[facility] Zeqbrznojn[address] [place] [address]Dr. Farhat Leal Potassium [Moles/Vol] 3.8 mmol/L Normal 3.5-5.[address] [facility] Comment on above: Performed By: #### C MP ####[facility] Knchqtbbvm7[address] [place] [address]Dr. Farhat Leal Protein [Mass/Vol] 6.0 g/dL Critically low 6.4-8.2 [facility] Comment on above: Performed By: #### C MP ####[facility] Dzgeyeeipv35[address] [place] [address]Dr. Farhat Leal Sodium [Moles/Vol] 137 mmol/L Normal 136-145 [facility] Comment on above: Performed By: #### C MP ####[facility] Mkkfkzswzr[address] [place], [place] [address]Dr. Farhat Leal Urea nitrogen [Mass/Vol] 54.0 mg/dL Critically high 7.0-18.[address] [facility] Comment on above: Performed By: #### C MP ####[facility] Xgpllnxtea[address] [place], [place] [address]Dr. Farhat Leal Urea nitrogen/Creatinine [Mass ratio] 43.5 mg/mg Normal [facility] Comment on above: Performed By: #### C MP ####[facility] Fpsosyctbd398[address] [place], [place] [address]Dr. Farhat Leal PROTIMEon 05-22-2022 INR Coag (PPP) [Relative time] 2.27 {INR} Normal [facility] Comment on above: Performed By: #### P T ####[facility] Zygnwyshuc859[address] [place], [place] [address]Dr. Farhat Leal INR GUIDELINES SEE BELOW Normal [facility] Comment on above: Result Comment: MALINA RED INR: 2.0 - 3.0 CONDITIONS NOT LISTED BELOW 2.5 - 3.5 FOR PROSTHETIC HEART VALVE REPLACEMENT 2.5 - 3.5 RECURRENT THROMBOSIS Performed By: #### P T ####[facility] Raujxivdzd1999[address] [place], [place] [address]Dr. Farhat Leal PT Coag (PPP) [Time] 23.0 s Critically high 9.0-11.6 The [facility] Comment on above: Performed By: #### P T ####[facility] Yqfgnvapyj[address] [place], [place] [address]DrSkylar Leal FK506 (TACROLIMUS) WHOLE BLO ODon 05-19-2022 Tacrolimus (FK506), Blood 7.8 ng/mL Normal 2.0-20.0 The [facility] Comment on above: Result Comment: Trou gh (immediately following transplant) 15.0 . Trough (steady state, 2 weeks or more after transplant): 3.0 - 8.0 . Performed by LC-MS/MS technology. Performed By: #### F K506T ####[facility] Hqhfxgccof846[address] [place], [place] [address]DrSkylar Leal CBC AUTO DIFFon 05-15-2022 BASO # 0.0 103/ul Normal 0.0-0.[address] [facility] Comment on above: Performed By: #### C BC ####[facility] Egaldbrimo3[address] [place], [place] [address]DrSkylar Leal Basophils/100 WBC (Bld) 0.4 % Normal 0.2-2.0 The [facility] Comment on above: Performed By: #### C BC ####[facility] Ckdndoafmi7[address] [place], [place] [address]DrSkylar Leal EO # 0.2 103/ul Normal 0.0-0.7 The [facility] Comment on above: Performed By: #### C BC ####[facility] Xcieehofep145[address] [place], [place] [address]DrSkylar Leal Eosinophils/100 WBC (Bld) 3.0 % Normal 0.9-7.0 The [facility] Comment on above: Performed By: #### C BC ####[facility] Libenasbwb809[address] [place], [place] [address]DrSkylar Leal Erythrocyte distribution width (RBC) [Ratio] 15.7 % Critically high 11.0-15.0 The [facility] Comment on above: Performed By: #### C BC ####[facility] Lzhdksgxkp995[address] [place], [place] [address]Dr. Yilorri Leal Hematocrit (Bld) [Volume fraction] 36.8 % Critically low 42.0-54.0 The [facility] Comment on above: Performed By: #### C BC ####[facility] [address]irnvwpsdv32[address] [place] [address]Dr. Farhat Leal Hemoglobin (Bld) [Mass/Vol] 12.4 g/dL Critically low 14.0-18.0 The [facility] Comment on above: Performed By: #### C BC ####[facility] [address]uiimslz[address] [place] [address]Dr. Farhat Leal IG # 0.01 10e3/ul Normal 0.00-0.03 The [facility] Comment on above: Performed By: #### C BC ####[facility] Fybbvdigpx01[address] [place] [address]Dr. Farhat Leal IG % 0.1 % Normal 0.0-0.5 The [facility] Comment on above: Performed By: #### C BC ####[facility] Xvhfnnvhqq3899[address] [place], [place] [address]Dr. Farhat Leal LYMPH # 2.4 103/ul Normal 1.2-3.8 The [facility] Comment on above: Performed By: #### C BC ####[facility] Efbvvjkkfn533[address] [place], [place] [address]Dr. Farhat Leal Lymphocytes/100 WBC (Bld) 35.6 % Normal 20.5-60.0 The [facility] Comment on above: Performed By: #### C BC ####[facility] Hcsawbxvgz327[address] [place], [place] [address]Dr. Farhat Leal MANUAL DIFF REQ NO Normal [facility] Comment on above: Performed By: #### C BC ####[facility] Lysjmvijbx027[address] [place], [place] [address]Dr. Farhat Leal MCH (RBC) [Entitic mass] 30.1 pg Normal 25.9-34.0 The [facility] Comment on above: Performed By: #### C BC ####[facility] Snafvwotzz870[address] [place], [place] [address]Dr. Farhat Leal MCHC (RBC) [Mass/Vol] 33.7 g/dL Normal 29.9-35.2 The [facility] Comment on above: Performed By: #### C BC ####[facility] Ksulnecbyv[address] [place] [address]DrSkylar Leal MCV (RBC) [Entitic vol] 89.3 fL Normal 80.0-94.0 The [facility] Comment on above: Performed By: #### C BC ####[facility] Coacpwktmw229[address] [place], [place] [address]DrSkylar Leal MONO # 0.7 103/ul Normal 0.3-0.8 The [facility] Comment on above: Performed By: #### C BC ####[facility] Wpyakzbgcf722[address] [place], [place] [address]DrSkylar Leal Monocytes/100 WBC (Bld) 10.8 % Normal 1.7-12.0 The [facility] Comment on above: Performed By: #### C BC ####[facility] Yxkkszyhvw0309[address] [place], [place] [address]DrSkylar Leal NEUT # 3.4 103/ul Normal 1.4-6.5 The [facility] Comment on above: Performed By: #### C BC ####[facility] Mdjkaeiuno822574 [address] [place], [place] [address]DrSkylar Leal Neutrophils/100 WBC (Bld) 50.1 % Normal 43.0-75.0 The [facility] Comment on above: Performed By: #### C BC ####[facility] Rqtnjfimpn9811[address] [place], [place] [address]DrSkylar Leal Platelet mean volume (Bld) [Entitic vol] 10.2 fL Normal 9.5-13.5 The [facility] Comment on above: Performed By: #### C BC ####[facility] Vspxbrtmzd8411[address] [place], [place] [address]DrSkylar Leal PLT 190 103/ul Normal 150-450 The [facility] Comment on above: Performed By: #### C BC ####[facility] Easxbyaino1388[address] [place], [place] [address]DrSkylar Leal RBC 4.12 106/ul Critically low 4.70-6.10 [facility] Comment on above: Performed By: #### C BC ####[facility] Ozomciuulq16[address] [place] [address]Dr. Farhat Leal WBC 6.8 103/ul Normal 4.0-11.[address] [facility] Comment on above: Performed By: #### C BC ####[facility] Q[address]ujfzhmc5[address] [place] [address]DrSkylar Leal PROF 14(COMP METB)on 023 Albumin [Mass/Vol] 2.8 g/dL Critically low 3.4-5.0 [facility] Comment on above: Performed By: #### C MP ####[facility] Kbwauukjkm6914[address] [place], [place] [address]DrSkylar Leal Albumin/Globulin [Mass ratio] 0.9 {ratio} Normal [facility] Comment on above: Performed By: #### C MP ####[facility] Slmawrnwwl1988[address] [place], [place] [address]Dr. Farhat Leal ALP [Catalytic activity/Vol] 66 U/L Normal 46-[address] [facility] Comment on above: Performed By: #### C MP ####[facility] Bqzfxbnvle1717[address] [place], [place] [address]DrSkylar Leal ALT [Catalytic activity/Vol] 15 U/L Critically low 16-[address] [facility] Comment on above: Performed By: #### C MP ####[facility] Cuvvdyjmyc6711[address] [place], [place] [address]DrSkylar Leal Anion gap [Moles/Vol] 11.1 mmol/L Normal [facility] Comment on above: Performed By: #### C MP ####[facility] Yybkbehimf628[address] [place], [place] [address]DrSkylar Leal AST [Catalytic activity/Vol] 14 U/L Critically low 15-[address] [facility] Comment on above: Performed By: #### C MP ####[facility] Wevjdpkips938[address] [place], [place] [address]DrSkylar Leal Bilirubin [Mass/Vol] 0.8 mg/dL Normal 0.2-1.0 The [facility] Comment on above: Performed By: #### C MP ####[facility] Hwgwdfubnf428[address] [place], [place] [address]Dr. Farhat Leal Calcium [Mass/Vol] 8.9 mg/dL Normal 8.5-10.1 [facility] Comment on above: Performed By: #### C MP ####[facility] Obrzjzfkeh616[address] [place], [place] [address]Dr. Farhat Leal Chloride [Moles/Vol] 101 mmol/L Normal 98-107 The [facility] Comment on above: Performed By: #### C MP ####[facility] Dwcbwlclqw526[address] [place], [place] [address]Dr. Farhat Leal CO2 [Moles/Vol] 28.2 mmol/L Normal 21.0-32.0 The [facility] Comment on above: Performed By: #### C MP ####[facility] Wgvbjfmnmu397[address] [place], [place] [address]Dr. Farhat Elvis Creatinine [Mass/Vol] 1.23 mg/dL Normal 0.70-1.[address] [facility] Comment on above: Performed By: #### C MP ####[facility] Uugvflwtcp0560[address] [place], [place] [address]Dr. Farhat Elvis EGFR-AF BURMESE >60 Normal >=60 The [facility] Comment on above: Performed By: #### C MP ####[facility] Hilqwcmaxg840674 [address] [place], [place] [address]Dr. Madelynlorri Elvis EGFR-NON AF BURMESE 57 mL/min/1.73m2 Critically low >=60 The [facility] Comment on above: Performed By: #### C MP ####[facility] Tsgxwxgggo994[address] [place], [place] [address]Dr. Farhat Leal Globulin (S) [Mass/Vol] 3.2 g/dL Normal The [facility] Comment on above: Performed By: #### C MP ####[facility] Hpjsqvyxiz3269[address] [place], [place] [address]Dr. Farhat Leal Glucose [Mass/Vol] 333 mg/dL Critically high 74-106 T [facility] Comment on above: Performed By: #### C MP ####[facility] Dgirkxkvpd7[address] [place] [address]Dr. Farhat Leal Potassium [Moles/Vol] 4.3 mmol/L Normal 3.5-5.[address] [facility] Comment on above: Performed By: #### C MP ####[facility] Tamrvdlvov75[address] [place] [address]Dr. Farhat Leal Protein [Mass/Vol] 6.0 g/dL Critically low 6.4-8.2 [facility] Comment on above: Performed By: #### C MP ####[facility] Dfdtbhdppg8859[address] [place], [place] [address]Dr. Farhat Leal Sodium [Moles/Vol] 136 mmol/L Normal 136-145 [facility] Comment on above: Performed By: #### C MP ####[facility] Efdsaaucnt72[address] [place], [place] [address]Dr. Farhat Leal Urea nitrogen [Mass/Vol] 58.0 mg/dL Critically high 7.0-18.[address] [facility] Comment on above: Performed By: #### C MP ####[facility] Vgqgkjtdne13[address] [place], [place] [address]Dr. Farhat Leal Urea nitrogen/Creatinine [Mass ratio] 47.2 mg/mg Normal [facility] Comment on above: Performed By: #### C MP ####[facility] Ftfvxjncqa539[address] [place], [place] [address]Dr. Farhat Leal PROTIMEon 05-13-2022 INR Coag (PPP) [Relative time] 3.51 {INR} Normal [facility] Comment on above: Performed By: #### P T ####[facility] Nuwuxssrsb4077[address] [place], [place] [address]Dr. Farhat Leal INR GUIDELINES SEE BELOW Normal [facility] Comment on above: Result Comment: MALINA RED INR: 2.0 - 3.0 CONDITIONS NOT LISTED BELOW 2.5 - 3.5 FOR PROSTHETIC HEART VALVE REPLACEMENT 2.5 - 3.5 RECURRENT THROMBOSIS Performed By: #### P T ####[facility] Pqqcahyyrc36[address] [place] [address]Dr. Farhat Leal PT Coag (PPP) [Time] 34.7 s Critically high 9.0-11.[address] [facility] Comment on above: Performed By: #### P T ####[facility] Tjjklfxbpw6539[address] [place], [place] [address]Dr. Farhat Leal FK506 (TACROLIMUS) WHOLE BLO ODon 05-11-2022 Tacrolimus (FK506), Blood 14.4 ng/mL Normal 2.0-20.[address] [facility] Comment on above: Result Comment: Trou gh (immediately following transplant) 15.0 . Trough (steady state, 2 weeks or more after transplant): 3.0 - 8.0 . Performed by LC-MS/MS technology. Performed By: #### F K506T ####[facility] Vzhtiaoiyg7[address] [place], [place] [address]Dr. Farhat Leal CBC AUTO DIFFon 05-08-2022 BASO # 0.0 103/ul Normal 0.0-0.[address] [facility] Comment on above: Performed By: #### C BC ####[facility] Wnmztnqftw230[address] [place], [place] [address]Dr. Farhat Leal Basophils/100 WBC (Bld) 0.5 % Normal 0.2-2.0 The [facility] Comment on above: Performed By: #### C BC ####[facility] Mqforraxch805[address] [place], [place] [address]Dr. Farhat Leal EO # 0.2 103/ul Normal 0.0-0.7 The [facility] Comment on above: Performed By: #### C BC ####[facility] Orcyarumbc608674 [address] [place], [place] [address]Dr. Farhat Leal Eosinophils/100 WBC (Bld) 2.9 % Normal 0.9-7.0 The [facility] Comment on above: Performed By: #### C BC ####[facility] Czpwabfzxw437[address] [place], [place] [address]Dr. Farhat Leal Erythrocyte distribution width (RBC) [Ratio] 16.0 % Critically high 11.0-15.0 The [facility] Comment on above: Performed By: #### C BC ####[facility] Xwmzzfrqvo3083 [place] [address]Dr. Farhat Leal Hematocrit (Bld) [Volume fraction] 35.7 % Critically low 42.0-54.[address] [facility] Comment on above: Performed By: #### C BC ####[facility] Ulouwxrwii30[address] [place] [address]Dr. Farhat Leal Hemoglobin (Bld) [Mass/Vol] 11.9 g/dL Critically low 14.0-18.[address] [facility] Comment on above: Performed By: #### C BC ####[facility] Nvhoxmqcqy689[address] [place], [place] [address]Dr. Farhat Leal IG # 0.03 10e3/ul Normal 0.00-0.[address] [facility] Comment on above: Performed By: #### C BC ####[facility] Lfyknczpac767[address] [place], [place] [address]DrSkylar Leal IG % 0.5 % Normal 0.0-0.[address] [facility] Comment on above: Performed By: #### C BC ####[facility] Ucejheumla017[address] [place], [place] [address]DrSkylar Leal LYMPH # 2.4 103/ul Normal 1.2-3.[address] [facility] Comment on above: Performed By: #### C BC ####[facility] Qzgtvaruun6575[address] [place], [place] [address]Dr. Farhat Leal Lymphocytes/100 WBC (Bld) 37.8 % Normal 20.5-60.0 The [facility] Comment on above: Performed By: #### C BC ####[facility] Efhbkxznpk4535[address] [place], [place] [address]DrSkylar Leal MANUAL DIFF REQ NO Normal [facility] Comment on above: Performed By: #### C BC ####[facility] Ihhgujtaik364[address] [place], [place] [address]DrSkylar Leal MCH (RBC) [Entitic mass] 30.4 pg Normal 25.9-34.[address] [facility] Comment on above: Performed By: #### C BC ####[facility] Djohsojanl[address] [place] [id number]. Farhat Elvis MCHC (RBC) [Mass/Vol] 33.3 g/dL Normal 29.9-35.[address] [facility] Comment on above: Performed By: #### C BC ####[facility] Ldgvmrutyc8[address] [place] [id number]. Farhat Leal MCV (RBC) [Entitic vol] 91.1 fL Normal 80.0-94.[address] [facility] Comment on above: Performed By: #### C BC ####[facility] Dqixmfziwf54[address] [place], [place] [address]Dr. Farhat Leal MONO # 0.7 103/ul Normal 0.3-0.[address] [facility] Comment on above: Performed By: #### C BC ####[facility] Xqbbqhhqxi1633[address] [place], [place] [address]Dr. Farhat Leal Monocytes/100 WBC (Bld) 11.1 % Normal 1.7-12.[address] [facility] Comment on above: Performed By: #### C BC ####[facility] Plchpivfrp[address] [place], [place] [address]Dr. Farhat Leal NEUT # 2.9 103/ul Normal 1.4-6.[address] [facility] Comment on above: Performed By: #### C BC ####[facility] Qekmowzpsv127[address] [place], [place] [address]Dr. Farhat Leal Neutrophils/100 WBC (Bld) 47.2 % Normal 43.0-75.0 The [facility] Comment on above: Performed By: #### C BC ####[facility] Qnpvutwhvz[address] [place], [place] [id number] Leal Platelet mean volume (Bld) [Entitic vol] 11.0 fL Normal 9.5-13.5 The [facility] Comment on above: Performed By: #### C BC ####[facility] Splpeopykn56[address] [place], [place] [address]Dr. Farhat Leal PLT 191 103/ul Normal 150-450 The [facility] Comment on above: Performed By: #### C BC ####[facility] Fxvvslwezg9[address] [place] [address]Dr. Farhat Leal RBC 3.92 106/ul Critically low 4.70-6.10 [facility] Comment on above: Performed By: #### C BC ####[facility] Ochcqmnyir[address] [place] [address]Dr. Madelynlorri Elvis WBC 6.2 103/ul Normal 4.0-11.0 The [facility] Comment on above: Performed By: #### C BC ####[facility] Cigyfivthg[address] [place] [address]Dr. Farhat Elvis MAGNESIUMon 05-08-2022 Magnesium [Mass/Vol] 1.9 mg/dL Normal 1.8-2.4 The [facility] Comment on above: Performed By: #### P HOS, MG ####[facility] Hzojoqksng[address] [place], [place] [address]Dr. Farhat Elvis PHOSPHORUSon 05-08-2022 Phosphate [Mass/Vol] 4.5 mg/dL Normal 2.6-4.7 The [facility] Comment on above: Performed By: #### P HOS, MG ####[facility] Symhobeiuh6701[address] [place], [place] [address]Dr. Madelynlorri Leal PROF 14(COMP METB)on 023 Albumin [Mass/Vol] 2.9 g/dL Critically low 3.4-5.0 [facility] Comment on above: Performed By: #### C MP ####[facility] Kqziqrkbbl53[address] [place] [address]Dr. Farhat Leal Albumin/Globulin [Mass ratio] 0.9 {ratio} Normal The [facility] Comment on above: Performed By: #### C MP ####[facility] Sibdaijjiw[address] [place], [place] [address]Dr. Madelynlorri Leal ALP [Catalytic activity/Vol] 70 U/L Normal 46-116 The [facility] Comment on above: Performed By: #### C MP ####[facility] Uclwpdqnxi6950[address] [place], [place] [address]Dr. Farhat Leal ALT [Catalytic activity/Vol] 13 U/L Critically low 16-[address] [facility] Comment on above: Performed By: #### C MP ####[facility] Wrivefwwjg[address] [place] [address]Dr. Madelynlorri Elvis Anion gap [Moles/Vol] 14.6 mmol/L Normal Th e [facility] Comment on above: Performed By: #### C MP ####[facility] Ddrrqignuz[address] [place] [address]Dr. Farhat Elvis AST [Catalytic activity/Vol] 17 U/L Normal 15-[address] [facility] Comment on above: Performed By: #### C MP ####[facility] Phfntkchyp26[address] [place], [place] [address]Dr. Farhat Leal Bilirubin [Mass/Vol] 0.8 mg/dL Normal 0.2-1.[address] [facility] Comment on above: Performed By: #### C MP ####[facility] Cwvbbadlhf[address] [place], [place] [address]Dr. Farhat Leal Calcium [Mass/Vol] 8.9 mg/dL Normal 8.5-10.1 [facility] Comment on above: Performed By: #### C MP ####[facility] Zfsunntith079[address] [place], [place] [address]Dr. Farhat Leal Chloride [Moles/Vol] 102 mmol/L Normal 98-[address] [facility] Comment on above: Performed By: #### C MP ####[facility] Qmjafzxeug[address]24[address] [place], [place] [address]Dr. Farhat Leal CO2 [Moles/Vol] 22.9 mmol/L Normal 21.0-32.0 The [facility] Comment on above: Performed By: #### C MP ####[facility] Ondlrfrjku[address] [place], [place] [address]Dr. Farhat Leal Creatinine [Mass/Vol] 1.20 mg/dL Normal 0.70-1.[address] [facility] Comment on above: Performed By: #### C MP ####[facility] Ezytzdrjmb90[address] [place], [place] [address]Dr. Farhat Leal EGFR-AF BURMESE >60 Normal >=60 [facility] Comment on above: Performed By: #### C MP ####[facility] Cbatmdhdcz7240 [place] [id number]. Farhat Elvis EGFR-NON AF BURMESE 59 mL/min/1.73m2 Critically low >=[address] [facility] Comment on above: Performed By: #### C MP ####[facility] Gszcvtymvk5[address] [place] [id number]. Madelynlorri Elvis Globulin (S) [Mass/Vol] 3.1 g/dL Normal [facility] Comment on above: Performed By: #### C MP ####[facility] [facility] Sjkgrmsafb9583 [place] [id number]. Madelynlorri Elvis Glucose [Mass/Vol] 447 mg/dL Critically high 74-106 T [facility] Comment on above: Performed By: #### C MP ####[facility] Hvvzhtngfy8062 [place] [id number]. Farhat Leal Potassium [Moles/Vol] 4.5 mmol/L Normal 3.5-5.[address] [facility] Comment on above: Performed By: #### C MP ####[facility] Mxnnlpdnwh[address] [place], [place] [address]Dr. Farhat Elvis Protein [Mass/Vol] 6.0 g/dL Critically low 6.4-8.2 [facility] Comment on above: Performed By: #### C MP ####[facility] Csvkbtyzmk212[address] [place], [place] [address]Dr. Madelynlorri Elvis Sodium [Moles/Vol] 135 mmol/L Critically low 136-145 [facility] Comment on above: Performed By: #### C MP ####[facility] Flzbkvhcit[address] [place], [place] [id number]. Farhat Leal Urea nitrogen [Mass/Vol] 52.0 mg/dL Critically high 7.0-18.[address] [facility] Comment on above: Performed By: #### C MP ####[facility] Czxwjoeadp[address] [place], [place] [id number]. Farhat Leal Urea nitrogen/Creatinine [Mass ratio] 43.3 mg/mg Normal [facility] Comment on above: Performed By: #### C MP ####[facility] Hegddlkcye[address] [place], [place] [address]Dr. Farhat Leal PROTIMEon 05-06-2022 INR Coag (PPP) [Relative time] 2.25 {INR} Normal [facility] Comment on above: Performed By: #### P T ####[facility] Mmacwmkvqf[address] [place], [place] [address]Dr. Farhat Leal INR GUIDELINES SEE BELOW Normal [facility] Comment on above: Result Comment: MALIAN RED INR: 2.0 - 3.0 CONDITIONS NOT LISTED BELOW 2.5 - 3.5 FOR PROSTHETIC HEART VALVE REPLACEMENT 2.5 - 3.5 RECURRENT THROMBOSIS Performed By: #### P T ####[facility] Qcoqbpchei364[address] [place], [place] [address]Dr. Farhat Leal PT Coag (PPP) [Time] 22.8 s Critically high 9.0-11.[address] [facility] Comment on above: Performed By: #### P T ####[facility] Mplwpbdqqe[address] [place], [place] [address]Dr. Farhat Leal FK506 (TACROLIMUS) WHOLE BLO ODon 05-04-2022 Tacrolimus (FK506), Blood 10.4 ng/mL Normal 2.0-20.[address] [facility] Comment on above: Result Comment: Trou gh (immediately following transplant) 15.0 . Trough (steady state, 2 weeks or more after transplant): 3.0 - 8.0 . Performed by LC-MS/MS technology. Performed By: #### F [id number] ####[facility] Rdpoqedaym[address] [place], [place] [address]Dr. Farhat Leal CBC AUTO DIFFon 05-01-2022 BASO # 0.1 103/ul Normal 0.0-0.[address] [facility] Comment on above: Performed By: #### C BC ####[facility] Zuwhzcwygg232[address] [place], [place] [address]DrSkylar Leal Basophils/100 WBC (Bld) 0.7 % Normal 0.2-2.[address] [facility] Comment on above: Performed By: #### C BC ####[facility] Fsclckxafp[address] [place] [address]Dr. Farhat Leal EO # 0.2 103/ul Normal 0.0-0.7 [facility] Comment on above: Performed By: #### C BC ####[facility] Idnxeprofn[address] [place] [address]Dr. Farhat Leal Eosinophils/100 WBC (Bld) 3.2 % Normal 0.9-7.0 [facility] Comment on above: Performed By: #### C BC ####[facility] Pcbywrvdhk38[address] [place], [place] [address]Dr. Farhat Leal Erythrocyte distribution width (RBC) [Ratio] 16.4 % Critically high 11.0-15.[address] [facility] Comment on above: Performed By: #### C BC ####[facility] Dserrpyinq47[address] [place], [place] [address]Dr. Farhat Leal Hematocrit (Bld) [Volume fraction] 35.1 % Critically low 42.0-54.[address] [facility] Comment on above: Performed By: #### C BC ####[facility] Mhcyhgvhdp[address] [place], [place] [address]Dr. Farhat Leal Hemoglobin (Bld) [Mass/Vol] 11.6 g/dL Critically low 14.0-18.0 [facility] Comment on above: Performed By: #### C BC ####[facility] Beiazaaiat[address] [place], [place] [address]Dr. Farhat Leal IG # 0.03 10e3/ul Normal 0.00-0.03 [facility] Comment on above: Performed By: #### C BC ####[facility] Wybzoyhodh033[address] [place], [place] [address]Dr. Farhat Leal IG % 0.4 % Normal 0.0-0.5 [facility] Comment on above: Performed By: #### C BC ####[facility] Tpynbqatbg[address] [place], [place] [address]Dr. Madelynlorri Leal LYMPH # 2.4 103/ul Normal 1.2-3.8 [facility] Comment on above: Performed By: #### C BC ####[facility] Atcqipcgzd13[address] [place] [phone]. Madelynlorri Leal Lymphocytes/100 WBC (Bld) 35.1 % Normal 20.5-60.[address] [facility] Comment on above: Performed By: #### C BC ####[facility] Nykesutcvx1556 [place] [address]Dr. Farhat Leal MANUAL DIFF REQ NO Normal [facility] Comment on above: Performed By: #### C BC ####[facility] Wxjyvtfbqp1160 [place] [address]Dr. Farhat Leal MCH (RBC) [Entitic mass] 29.4 pg Normal 25.9-34.0 [facility] Comment on above: Performed By: #### C BC ####[facility] Gervxkmfqh6712 [place] [address]Dr. Farhat Leal MCHC (RBC) [Mass/Vol] 33.0 g/dL Normal 29.9-35.2 [facility] Comment on above: Performed By: #### C BC ####[facility] Csetfvqzim1056 [place] [address]Dr. Farhat Leal MCV (RBC) [Entitic vol] 88.9 fL Normal 80.0-94.0 [facility] Comment on above: Performed By: #### C BC ####[facility] Xandjuroef9407 [place] [address]Dr. Farhat Leal MONO # 0.7 103/ul Normal 0.3-0.8 [facility] Comment on above: Performed By: #### C BC ####[facility] Sduujihiio5862 [place] [address]Dr. Farhat Leal Monocytes/100 WBC (Bld) 9.6 % Normal 1.7-12.0 [facility] Comment on above: Performed By: #### C BC ####[facility] Asiergbauw30[address] [place] [address]Dr. Farhat Leal NEUT # 3.5 103/ul Normal 1.4-6.5 [facility] Comment on above: Performed By: #### C BC ####[facility] Rlqyqesmab0547 [place] [address]Dr. Farhat Elvis Neutrophils/100 WBC (Bld) 51.0 % Normal 43.0-75.[address] [facility] Comment on above: Performed By: #### C BC ####[facility] Rwryvgdcnt2413 [place] [address]Dr. Farhat Elvis Platelet mean volume (Bld) [Entitic vol] 10.3 fL Normal 9.5-13.[address] [facility] Comment on above: Performed By: #### C BC ####[facility] Xpogkbekad1931 [place] [address]Dr. Farhat Leal PLT 184 103/ul Normal 150-[address] [facility] Comment on above: Performed By: #### C BC ####[facility] Dvcvtjoiuv0972 [place] [address]Dr. Farhat Leal RBC 3.95 106/ul Critically low 4.70-6.10 [facility] Comment on above: Performed By: #### C BC ####[facility] Txxzpjzbmu5964 [place] [address]Dr. Farhat Leal WBC 7.0 103/ul Normal 4.0-11.[address] [facility] Comment on above: Performed By: #### C BC ####[facility] Uypwgpkuhp8050 [place] [address]DrSkylar Leal PROF 14(COMP METB)on 023 Albumin [Mass/Vol] 2.6 g/dL Critically low 3.4-5.0 [facility] Comment on above: Performed By: #### C MP ####[facility] Rfmxynnvna9336 [place] [address]DrSkylar Leal Albumin/Globulin [Mass ratio] 0.9 {ratio} Normal [facility] Comment on above: Performed By: #### C MP ####[facility] Ekewiorlps7404 [place] [address]DrSkylar Leal ALP [Catalytic activity/Vol] 53 U/L Normal 46-116 [facility] Comment on above: Performed By: #### C MP ####[facility] Dojipzznym2490 [place] [address]Dr. Farhat Elvis ALT [Catalytic activity/Vol] 17 U/L Normal 16-[address] [facility] Comment on above: Performed By: #### C MP ####[facility] Vnurfrztnd0478 [place] [address]Dr. Farhat Elvis Anion gap [Moles/Vol] 10.0 mmol/L Normal [facility] Comment on above: Performed By: #### C MP ####[facility] Vfopklihos5081 [place] [address]Dr. Farhat Elvis AST [Catalytic activity/Vol] 19 U/L Normal 15-[address] [facility] Comment on above: Performed By: #### C MP ####[facility] Teigvycqpp020[address] [place] [address]Dr. Farhat Leal Bilirubin [Mass/Vol] 0.5 mg/dL Normal 0.2-1.[address] [facility] Comment on above: Performed By: #### C MP ####[facility] Nqaprlzpki6811 [place] [address]Dr. Farhat Elvis Calcium [Mass/Vol] 8.4 mg/dL Critically low 8.5-10.1 [facility] Comment on above: Performed By: #### C MP ####[facility] Geyllgjpvw9842 [place] [address]Dr. Farhat Leal Chloride [Moles/Vol] 108 mmol/L Critically high 98-[address] [facility] Comment on above: Performed By: #### C MP ####[facility] Uvadmqsoal9811 [place] [address]Dr. Farhat Leal CO2 [Moles/Vol] 26.9 mmol/L Normal 21.0-32.0 The [facility] Comment on above: Performed By: #### C MP ####[facility] Mtmorjpsix9449 [place] [address]Dr. Farhat Leal Creatinine [Mass/Vol] 1.20 mg/dL Normal 0.70-1.[address] [facility] Comment on above: Performed By: #### C MP ####[facility] Mpymvliwpl8626 [place] [address]Dr. Farhat Leal EGFR-AF BURMESE >60 Normal >=60 [facility] Comment on above: Performed By: #### C MP ####[facility] Cjrpbahshb3[address] [place], [place] [address]Nw. Farhat Elvis EGFR-NON AF BURMESE 59 mL/min/1.73m2 Critically low >=[address] [facility] Comment on above: Performed By: #### C MP ####[facility] Xinovkqsry2747 [place] [address]Dr. Farhat Elvis Globulin (S) [Mass/Vol] 3.0 g/dL Normal [facility] Comment on above: Performed By: #### C MP ####[facility] Qntfxafuzp2221 [place] [address]Dr. Madelynlorri Elvis Glucose [Mass/Vol] 213 mg/dL Critically high 74-106 [facility] Comment on above: Performed By: #### C MP ####[facility] Teldtidldn5302 [place] [address]Dr. Farhat Elvis Potassium [Moles/Vol] 3.9 mmol/L Normal 3.5-5.[address] [facility] Comment on above: Performed By: #### C MP ####[facility] Yanzxtptid0789 [place] [address]Dr. Madelynlorri Elvis Protein [Mass/Vol] 5.6 g/dL Critically low 6.4-8.2 [facility] Comment on above: Performed By: #### C MP ####[facility] Xazpfnuldk2313 [place] [address]Dr. Madelynlorri Leal Sodium [Moles/Vol] 141 mmol/L Normal 136-145 [facility] Comment on above: Performed By: #### C MP ####[facility] Krluteedgi9032 [place] [address]Dr. Farhat Elvis Urea nitrogen [Mass/Vol] 61.0 mg/dL Critically high 7.0-18.[address] [facility] Comment on above: Performed By: #### C MP ####[facility] Mlibkcqyqw250[address] [place], [place] [address]Dr. Madelynlorri Leal Urea nitrogen/Creatinine [Mass ratio] 50.8 mg/mg Normal [facility] Comment on above: Performed By: #### C MP ####[facility] Rcqblmixju79[address] [place], [place] [address]Dr. Farhat Leal FK506 (TACROLIMUS) WHOLE BLO ODon 04-27-2022 Tacrolimus (FK506), Blood 16.5 ng/mL Normal 2.0-20.[address] [facility] Comment on above: Result Comment: Trou gh (immediately following transplant) 15.0 . Trough (steady state, 2 weeks or more after transplant): 3.0 - 8.0 . Performed by LC-MS/MS technology. Performed By: #### F K506T ####[facility] Lkhighqrmb02[address] [place], [place] [address]Dr. Farhat Elvis CBC AUTO DIFFon 04-24-2022 BASO # 0.0 103/ul Normal 0.0-0.[address] [facility] Comment on above: Performed By: #### C BC ####[facility] Zipxsvoees[address] [place], [place] [address]Dr. Farhat Leal Basophils/100 WBC (Bld) 0.5 % Normal 0.2-2.0 [facility] Comment on above: Performed By: #### C BC ####[facility] Aaoyvumhsp23[address] [place], [place] [address]Dr. Madelynlorri Elvis EO # 0.2 103/ul Normal 0.0-0.7 [facility] Comment on above: Performed By: #### C BC ####[facility] Ovtffzfjte499[address] [place], [place] [address]Dr. Farhat Leal Eosinophils/100 WBC (Bld) 3.1 % Normal 0.9-7.0 [facility] Comment on above: Performed By: #### C BC ####[facility] Muntblaikv74[address] [place], [place] [address]Dr. Farhat Leal Erythrocyte distribution width (RBC) [Ratio] 16.3 % Critically high 11.0-15.0 [facility] Comment on above: Performed By: #### C BC ####[facility] Gbdqhfulsm3104 [place] [address]Dr. Farhat Leal Hematocrit (Bld) [Volume fraction] 34.0 % Critically low 42.0-54.[address] [facility] Comment on above: Performed By: #### C BC ####[facility] Dxhewtbngh1670 [place] [address]Dr. Madelynlorri Elvis Hemoglobin (Bld) [Mass/Vol] 11.6 g/dL Critically low 14.0-18.[address] [facility] Comment on above: Performed By: #### C BC ####[facility] Gkjfgtluql[address] [place], [place] [address]Dr. Farhat Leal IG # 0.02 10e3/ul Normal 0.00-0.[address] [facility] Comment on above: Performed By: #### C BC ####[facility] Ylwwberfod[address] [place], [place] [address]Dr. Farhat Leal IG % 0.4 % Normal 0.0-0.[address] [facility] Comment on above: Performed By: #### C BC ####[facility] Mryvcuowgl[address] [place], [place] [address]DrSkylar Madelynlorri Leal LYMPH # 2.2 103/ul Normal 1.2-3.[address] [facility] Comment on above: Performed By: #### C BC ####[facility] Ajkgfnuufl7364[address] [place], [place] [address]DrSkylar Leal Lymphocytes/100 WBC (Bld) 38.8 % Normal 20.5-60.0 [facility] Comment on above: Performed By: #### C BC ####[facility] Ukqavgxuxb97[address] [place], [place] [address]DrSkylar Leal MANUAL DIFF REQ NO Normal [facility] Comment on above: Performed By: #### C BC ####[facility] Pfxyyvumxe[address] [place], [place] [address]DrSkylar Leal MCH (RBC) [Entitic mass] 30.1 pg Normal 25.9-34.[address] [facility] Comment on above: Performed By: #### C BC ####[facility] Qdmizqskri9041 [place] [phone]. Farhat Elvis MCHC (RBC) [Mass/Vol] 34.1 g/dL Normal 29.9-35.[address] [facility] Comment on above: Performed By: #### C BC ####[facility] Oydxkprrev2540 [place] [phone] Leal MCV (RBC) [Entitic vol] 88.1 fL Normal 80.0-94.[address] [facility] Comment on above: Performed By: #### C BC ####[facility] Wspnhgdxbv[address] [place], [place] [address]DrSkylar Leal MONO # 0.6 103/ul Normal 0.3-0.[address] [facility] Comment on above: Performed By: #### C BC ####[facility] Hbunoycize229[address] [place], [place] [address]Dr. Farhat Leal Monocytes/100 WBC (Bld) 10.8 % Normal 1.7-12.[address] [facility] Comment on above: Performed By: #### C BC ####[facility] Ldtexlfnxt[address] [place], [place] [address]Dr. Farhat Leal NEUT # 2.6 103/ul Normal 1.4-6.5 [facility] Comment on above: Performed By: #### C BC ####[facility] Tnbrbixlxl[address] [place], [place] [address]DrSkylar Leal Neutrophils/100 WBC (Bld) 46.4 % Normal 43.0-75.0 [facility] Comment on above: Performed By: #### C BC ####[facility] Cqsapstksf[address] [place], [place] [id number] Leal Platelet mean volume (Bld) [Entitic vol] 10.9 fL Normal 9.5-13.5 [facility] Comment on above: Performed By: #### C BC ####[facility] Sqhyjgllai[address] [place], [place] [address]DrSkylar Leal PLT 159 103/ul Normal 150-450 [facility] Comment on above: Performed By: #### C BC ####[facility] Tssochkgyh[address] [place] [address]Dr. Madelynlorri Elvis RBC 3.86 106/ul Critically low 4.70-6.10 [facility] Comment on above: Performed By: #### C BC ####[facility] Rismiyyhmo3296 [place] [address]Dr. Farhat Leal WBC 5.6 103/ul Normal 4.0-11.0 [facility] Comment on above: Performed By: #### C BC ####[facility] Xwkjczxyff7701 [place] [address]Dr. Farhat Leal PROTIMEon 04-24-2022 INR Coag (PPP) [Relative time] 3.23 {INR} Normal The [facility] Comment on above: Performed By: #### P T ####[facility] Jyrxxcolet[address] [place], [place] [address]Dr. Farhat Leal INR GUIDELINES SEE BELOW Normal [facility] Comment on above: Result Comment: MALINA RED INR: 2.0 - 3.0 CONDITIONS NOT LISTED BELOW 2.5 - 3.5 FOR PROSTHETIC HEART VALVE REPLACEMENT 2.5 - 3.5 RECURRENT THROMBOSIS Performed By: #### P T ####[facility] Ljfvaimyde[address] [place], [place] [address]Dr. Farhat Leal PT Coag (PPP) [Time] 32.0 s Critically high 9.0-11.[address] [facility] Comment on above: Performed By: #### P T ####[facility] Govuclilao[address] [place], [place] [address]Dr. Farhat Leal FK506 (TACROLIMUS) WHOLE BLO ODon 04-20-2022 Tacrolimus (FK506), Blood 13.9 ng/mL Normal 2.0-20.0 [facility] Comment on above: Result Comment: Trou gh (immediately following transplant) 15.0 . Trough (steady state, 2 weeks or more after transplant): 3.0 - 8.0 . Performed by LC-MS/MS technology. Performed By: #### F [id number] ####[facility] Xfpnljzqmg[address] [place], [place] [address]Dr. Farhat Leal CBC AUTO DIFFon 04-17-2022 BASO # 0.0 103/ul Normal 0.0-0.1 [facility] Comment on above: Performed By: #### C BC ####[facility] Svferfqpbo[address] [place] [address]Dr. Farhat Leal Basophils/100 WBC (Bld) 0.4 % Normal 0.2-2.0 [facility] Comment on above: Performed By: #### C BC ####[facility] Xvkdahjtwg4109 [place] [address]Dr. Farhat Leal EO # 0.2 103/ul Normal 0.0-0.7 [facility] Comment on above: Performed By: #### C BC ####[facility] Cojyjyvmxp7172 [place] [address]Dr. Farhat Leal Eosinophils/100 WBC (Bld) 2.8 % Normal 0.9-7.0 [facility] Comment on above: Performed By: #### C BC ####[facility] Srsddollbw5757 [place] [address]Dr. Farhat Leal Erythrocyte distribution width (RBC) [Ratio] 16.1 % Critically high 11.0-15.0 [facility] Comment on above: Performed By: #### C BC ####[facility] Jsmnlrdfuc9788 [place] [address]Dr. Farhat Leal Hematocrit (Bld) [Volume fraction] 35.7 % Critically low 42.0-54.0 [facility] Comment on above: Performed By: #### C BC ####[facility] Ruezibwykr1059 [place] [address]Dr. Farhat Leal Hemoglobin (Bld) [Mass/Vol] 12.2 g/dL Critically low 14.0-18.0 [facility] Comment on above: Performed By: #### C BC ####[facility] Bhkqfhpsau9451 [place] [address]Dr. Farhat Elvis IG # 0.03 10e3/ul Normal 0.00-0.03 [facility] Comment on above: Performed By: #### C BC ####[facility] Bxjuzvdieq0288 [place] [phone]. Farhat Leal IG % 0.4 % Normal 0.0-0.5 [facility] Comment on above: Performed By: #### C BC ####[facility] Mujupzcnoe3109 [place] [address]Dr. Farhat Leal LYMPH # 2.4 103/ul Normal 1.2-3.8 [facility] Comment on above: Performed By: #### C BC ####[facility] Onpnhrryxz2913 [place] [address]Dr. Farhat Leal Lymphocytes/100 WBC (Bld) 36.1 % Normal 20.5-60.0 [facility] Comment on above: Performed By: #### C BC ####[facility] Kzhgeucdez8440 [place] [phone]. Farhat Leal MANUAL DIFF REQ NO Normal [facility] Comment on above: Performed By: #### C BC ####[facility] Dbvqwekeze4444 [place] [address]Dr. Farhat Leal MCH (RBC) [Entitic mass] 30.3 pg Normal 25.9-34.0 [facility] Comment on above: Performed By: #### C BC ####[facility] Eounggqclh7016 [place] [phone]. Farhat Leal MCHC (RBC) [Mass/Vol] 34.2 g/dL Normal 29.9-35.2 [facility] Comment on above: Performed By: #### C BC ####[facility] Pyfmgohqgp5939 [place] [phone]. Farhat Leal MCV (RBC) [Entitic vol] 88.6 fL Normal 80.0-94.0 [facility] Comment on above: Performed By: #### C BC ####[facility] Lteckqsocq3944 [place] [phone]. Farhat Leal MONO # 0.7 103/ul Normal 0.3-0.8 [facility] Comment on above: Performed By: #### C BC ####[facility] Aprnugptxb8418 [place] [id number]. Farhat Leal Monocytes/100 WBC (Bld) 10.1 % Normal 1.7-12.0 [facility] Comment on above: Performed By: #### C BC ####[facility] Chrkyspxmu3173 [place] [id number]. Farhat Leal NEUT # 3.4 103/ul Normal 1.4-6.5 [facility] Comment on above: Performed By: #### C BC ####[facility] Irzdbbrwzq4355 [place] [phone]. Farhat Leal Neutrophils/100 WBC (Bld) 50.2 % Normal 43.0-75.[address] [facility] Comment on above: Performed By: #### C BC ####[facility] Vwardrtdmt3759 [place] [phone]. Farhat Leal Platelet mean volume (Bld) [Entitic vol] 11.8 fL Normal 9.5-13.[address] [facility] Comment on above: Performed By: #### C BC ####[facility] Opkqfhbpzu4301 [place] [id number]. Farhat Leal PLT 193 103/ul Normal 150-[address] [facility] Comment on above: Performed By: #### C BC ####[facility] Yipjtnzzog8385 [place] [phone]. Farhat Leal RBC 4.03 106/ul Critically low 4.70-6.10 The [facility] Comment on above: Performed By: #### C BC ####[facility] Mlhwypbuob5908 [place] [phone]. Farhat Leal WBC 6.8 103/ul Normal 4.0-11.[address] [facility] Comment on above: Performed By: #### C BC ####[facility] Gfncknmpci7866 [place] [address]Dr. Madelynlorri Leal PROF 14(COMP METB)on 023 Albumin [Mass/Vol] 2.9 g/dL Critically low 3.4-5.0 [facility] Comment on above: Performed By: #### C MP ####[facility] Eczzwxmmll2793 [place] [phone]. Farhat Leal Albumin/Globulin [Mass ratio] 0.9 {ratio} Normal [facility] Comment on above: Performed By: #### C MP ####[facility] Nqrraedtxi1117 [place] [phone]. Farhat Leal ALP [Catalytic activity/Vol] 67 U/L Normal 46-[address] [facility] Comment on above: Performed By: #### C MP ####[facility] Ptzlmjgcfg2298 [place] [address]Dr. Farhat Elvis ALT [Catalytic activity/Vol] 15 U/L Critically low 16-[address] [facility] Comment on above: Performed By: #### C MP ####[facility] Fxncoalwrb[address] [place], [place] [address]Dr. Farhat Elvis Anion gap [Moles/Vol] 10.8 mmol/L Normal [facility] Comment on above: Performed By: #### C MP ####[facility] Csviqipaqw[address] [place], [place] [address]Dr. Farhat Elvis AST [Catalytic activity/Vol] 23 U/L Normal 15-[address] [facility] Comment on above: Performed By: #### C MP ####[facility] Mcgfjuyldi[address] [place], [place] [address]Dr. Farhat Elvis Bilirubin [Mass/Vol] 0.6 mg/dL Normal 0.2-1.[address] [facility] Comment on above: Performed By: #### C MP ####[facility] Avcyywtbvc[address] [place] [address]Dr. Farhat Elvis Calcium [Mass/Vol] 8.7 mg/dL Normal 8.5-10.1 [facility] Comment on above: Performed By: #### C MP ####[facility] Zzljjuijds[address] [place], [place] [address]Dr. Farhat Leal Chloride [Moles/Vol] 105 mmol/L Normal 98-[address] [facility] Comment on above: Performed By: #### C MP ####[facility] Twowbxumqy7851 [place] [address]Dr. Farhat Elvis CO2 [Moles/Vol] 29.5 mmol/L Normal 21.0-32.0 The [facility] Comment on above: Performed By: #### C MP ####[facility] Kwcfzuxuqk4275 [place] [address]Dr. Farhat Elvis Creatinine [Mass/Vol] 1.37 mg/dL Critically high 0.70-1.[address] [facility] Comment on above: Performed By: #### C MP ####[facility] Kydbcqwwjy[address] [place], [place] [address]Dr. Farhat Elvis EGFR-AF BURMESE >60 Normal >=60 [facility] Comment on above: Performed By: #### C MP ####[facility] Znshcswgcu[address] [place], [place] [address]Dr. Farhat Leal EGFR-NON AF BURMESE 50 mL/min/1.73m2 Critically low >=[address] [facility] Comment on above: Performed By: #### C MP ####[facility] Nrqcfouoxl[address] [place], [place] [address]Dr. Madelynlorri Leal Globulin (S) [Mass/Vol] 3.1 g/dL Normal [facility] Comment on above: Performed By: #### C MP ####[facility] Mzpkmyynvw257[address] [place], [place] [address]Dr. Farhat Leal Glucose [Mass/Vol] 203 mg/dL Critically high 74-106 T [facility] Comment on above: Performed By: #### C MP ####[facility] Oxetvnqkeu[address] [place], [place] [address]Dr. Madelynlorri Leal Potassium [Moles/Vol] 4.3 mmol/L Normal 3.5-5.1 [facility] Comment on above: Performed By: #### C MP ####[facility] Godfjouvav[address] [place], [place] [address]Dr. Farhat Leal Protein [Mass/Vol] 6.0 g/dL Critically low 6.4-8.2 Th e [facility] Comment on above: Performed By: #### C MP ####[facility] Veyqxwsnml[address] [place], [place] [address]Dr. Farhat Leal Sodium [Moles/Vol] 141 mmol/L Normal 136-145 [facility] Comment on above: Performed By: #### C MP ####[facility] Yiqxeqwzcq2830 [place] [address]Dr. Farhat Leal Urea nitrogen [Mass/Vol] 65.0 mg/dL Critically high 7.0-18.[address] [facility] Comment on above: Performed By: #### C MP ####[facility] Bhxrxdsejm0450 [place] [address]Dr. Farhat Leal Urea nitrogen/Creatinine [Mass ratio] 47.4 mg/mg Normal [facility] Comment on above: Performed By: #### C MP ####[facility] Mvxapwxgqd3210 [place] [address]Dr. Farhat Leal PROTIMEon 04-15-2022 INR Coag (PPP) [Relative time] 3.88 {INR} Normal [facility] Comment on above: Performed By: #### P T ####[facility] Vrhmmpxuwp08[address] [place] [address]Dr. Farhat Leal INR GUIDELINES SEE BELOW Normal The [facility] Comment on above: Result Comment: MALINA RED INR: 2.0 - 3.0 CONDITIONS NOT LISTED BELOW 2.5 - 3.5 FOR PROSTHETIC HEART VALVE REPLACEMENT 2.5 - 3.5 RECURRENT THROMBOSIS Performed By: #### P T ####[facility] Qinevgerbh[address] [place], [place] [address]Dr. Farhat Leal PT Coag (PPP) [Time] 38.1 s Critically high 9.0-11.[address] [facility] Comment on above: Performed By: #### P T ####[facility] Bviebrynjz[address] [place], [place] [address]Dr. Farhat Leal Glucose Glucometer (BldC) [M ass/Vol]Ordered By: Sadia Aguilar on 04-14-2022 Glucose [Mass/Vol] 162 mg/dL [facility] Comment on above: Random Glucose Refer ence Range is dependent on time and content of last meal. Glucose of more than 200 mg/dL in a nonstressed, ambulatory subject supports the diagnosis of Diabetes Mellitus. Glucose Poct Glucometerson 0 04-14-2022 Commemt1 Glu2: Cleaned Meter Normal [facility] Comment on above: Result Comment: PERF ORMED BY: [facility] [place] [address] PATHOLOGIST CATALYST OPERATOR CHIEF JOSE F ELLIOTT M.D. Performed By: #### G LULS #### Point of Care testing , Glucose [Mass/Vol] 162 mg/dL Normal [facility] Comment on above: Result Comment: [facility] Glucose Reference Range is dependent on time and content of last meal. Glucose of more than 200 mg/dL in a nonstressed, ambulatory subject supports the diagnosis of Diabetes Mellitus. Performed By: #### G LULS #### Point of Care testing , No Panel InformationOrdered By: Sadia Aguilar on 04-14-2022 Bedside Glucose Comment Glu2: cleaned meter [facility] MAGNESIUMon 04-13-2022 Magnesium [Mass/Vol] 1.7 mg/dL Critically low 1.8-2.[address] [facility] Comment on above: Performed By: #### M Anais PHOS ####[facility] Ytgxtqyhry39[address] [place] [address]Dr. Farhat Leal PHOSPHORUSon 04-13-2022 Phosphate [Mass/Vol] 4.8 mg/dL Critically high 2.6-4.[address] [facility] Comment on above: Performed By: #### M Anais PHOS ####[facility] Cytpejhthb8882 [place] [phone]. Farhat Leal PROTIMEon 04-13-2022 INR Coag (PPP) [Relative time] 3.16 {INR} Normal [facility] Comment on above: Performed By: #### P T ####[facility] Hcusvdldxs[address]474 [place] [address]Dr. Farhat Leal INR GUIDELINES SEE BELOW Normal The [facility] Comment on above: Result Comment: MALINA RED INR: 2.0 - 3.0 CONDITIONS NOT LISTED BELOW 2.5 - 3.5 FOR PROSTHETIC HEART VALVE REPLACEMENT 2.5 - 3.5 RECURRENT THROMBOSIS Performed By: #### P T ####[facility] Wjcgyhqjty6[address] [place] [address]Dr. Farhat Leal PT Coag (PPP) [Time] 31.4 s Critically high 9.0-11.[address] [facility] Comment on above: Performed By: #### P T ####[facility] Vawpzpyoqy76[address] [place] [address]Dr. Farhat Leal MAGNESIUMon 03-11-2022 Magnesium [Mass/Vol] 1.6 mg/dL Critically low 1.8-2.4 [facility] Comment on above: Performed By: #### M G, PHOS ####[facility] Qhhpvibkmj4197 [place] [address]Dr. Farhat Leal PHOSPHORUSon 03-11-2022 Phosphate [Mass/Vol] 5.3 mg/dL Critically high 2.6-4.7 [facility] Comment on above: Performed By: #### M Anais, PHOS ####[facility] Csiukevsfa[address] [place], [place] [address]Dr. 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 Patient on mycophenolate mofetil , cellcept and prednisone Mixed hyperlipidemia due to type 2 diabetes mellitus ([facility]) 11/29/2021 Osteomyelitis ([facility]) 11/29/2021 Paroxysmal atrial fibrillation ([facility]) Renal transplant, status post SA node dysfunction ([facility]) s/p pacemaker Type 2 diabetes mellitus with diabetic neuropathy, with long-term current use of insulin ([facility]) 02/24/2002 PAST SURGICAL HISTORY Procedure Laterality Date [...] by mouth daily with lunch. [employer] [place] with lunch aspirin, enteric coated (ASPIRIN, ENTERIC COATED) 81 mg EC tablet Take 1 tablet by (more content not included)... [facility]-25-2022 INR Coag (PPP) [Relative time] 1.31 {INR} Normal [facility] Comment on above: Performed By: #### P T ####[facility] Qfckidipem6229 [place] [id number] Leal INR GUIDELINES SEE BELOW Normal The [facility] Comment on above: Result Comment: MALINA RED INR: 2.0 - 3.0 CONDITIONS NOT LISTED BELOW 2.5 - 3.5 FOR PROSTHETIC HEART VALVE REPLACEMENT 2.5 - 3.5 RECURRENT THROMBOSIS Performed By: #### P T ####[facility] Ocwoxoawpw9184 [place] [address]DrSkylar Leal PT Coag (PPP) [Time] 13.7 s Critically high 9.0-11.6 [facility] Comment on above: Performed By: #### P T ####[facility] Wqbibyjdxk5415 [place] [address]DrSkylar Leal CNPRosalie 02-19-2022 CNPN Telephone (TXCTGL) ALEX ALMONTE ([id number]) 1945 M TRN Date Time Provider Department 02/19/22 AUGUSTA MEDRANO TXCTGL During your visit today, we recorded the following information about you: Augusta Medrano RN 02/19/2022 11:16 AM Signed Alex Almonte's nursing facility, [facility], called regarding elevated tacrolimus level (23.9). Spoke [...] GI Upset Date Reviewed: 02/05/2022 Reviewed by: Hraper Ignacio MA - Fully Assessed Reason for Visit: Results [95] Cmt: Nolvia 23.9 Prescriptions as of 02/19/2022 - atorvastatin [...] by mouth daily with lunch. 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/2002 DIABETES UNCOMPL ADULT-UNCONTRLLED [[id number]] 02/24/2002 KIDNEY TRANSPLANT STATUS [Z94.0] 09/07/2003 PROPHYLACTIC IMMUNOTHERAPY [Z29.8] 07/30/2006 [facility]CI STEROIDS [[id number]] 07/30/2006 VITAMIN D DEFICIENCY NOS [E55.9] 09/07/2008 [...] perfusion [R09.89] 09/30/2021 PAD (peripheral artery disease) ([facility]) [I73.9] 09/26/2021 Osteomyelitis ([facility]) [M86.9] 11/29/2021 Class 1 obesity due to excess calories with ser*11/29/2021 Mixed hyperlipidemia due to type 2 diabetes myles*11/29/2021 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 Almonte would like to request a sooner appointment with Dr. Peterson than 04/13/2022. Contact Name (if not the patient) Alex's nurse Home and cell number(Ask for Alex's nurse) [phone] Diagnosis 4 mo f/u wound check Best regards, Yumiok Beard 02/19/2022 12:22 PM Signed Alex Almonte [...] by mouth daily with lunch. 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 [[id number]] 07/30/2006 VITAMIN D DEFICIENCY NOS [E55.9] 09/07/2008 [...] perfusion [R09.89] 09/30/2021 PAD (peripheral artery disease) ([facility]) [I73.9] 09/26/2021 Osteomyelitis (HCC) [M86.9] 11/29/2021 Class 1 obesity due to excess calories with ser*11/29/2021 Mixed hyperlipidemia due to type 2 diabetes myles*11/29/2021 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 Normal [facility] CNOVon 02-05-2022 CNOV Office Visit (TXCTGL ) ZEV ALMONTEJESÚS Kate ([id number]) 1945 M TRN Date Time Provider Department 02/05/22 8:20 AM [facility] TX[facility] TXCTGL During your visit today, we recorded the following information about you: Temperature Pulse Blood pressure 96.7 degrees 79/minute 72/42 Asia Pike MD 02/05/2022 9:38 AM Signed [facility] [place] Transplant Follow up Portions of this note [...] Indra scale at [facility]: 166.2 lbs per patient. Bed sore on coccyx causing discomfort. Being changed regularly at [facility]- reported to be smaller around but still as deep. Patient not very up to date with medications. Patient brought paperwork from [employer] with all medications being received. Patient unsure if they have been drawing labs regularly. Last Tac from 01/19: 12.9 and K 5.9. In need of current labs. Lab orders will be sent with patient and follows as below: Kidney and Pancreas Transplant Standing Lab Orders [address] [facility] [address] [place], [place] [address] February 05, 2022 Alex Almonte 1945 [id number] STANDARD TESTING: Diagnosis Codes: Z94.0 Kidney Transplant [...] AT YOUR LABORATORY FACILITY AND FAX TO [phone]. PLEASE CALL [phone]. Provider: Dr. Pike Current Outpatient Medications Medication [...] Take 237 (more content not included)... Normal [facility] PROTEIN CREATININE RATIOon 1 04-08-2021 Protein/Creatinine (U) [Mass ratio] 0.10 mg/mg <0.15 mg/mg [facility] PROTIMEon 02-05-2022 INR Coag (PPP) [Relative time] 2.90 {INR} Normal [facility] Comment on above: Performed By: #### P T ####[facility] I[address]ab[address] [place], [place] [address]Pu. Farhat Leal INR GUIDELINES SEE BELOW Normal The [facility] Comment on above: Result Comment: MALINA RED INR: 2.0 - 3.0 CONDITIONS NOT LISTED BELOW 2.5 - 3.5 FOR PROSTHETIC HEART VALVE REPLACEMENT 2.5 - 3.5 RECURRENT THROMBOSIS Performed By: #### P T ####[facility] Nedtcbeqqj[address] [place], [place] [address]Qx. Farhat Leal PT Coag (PPP) [Time] 29.2 s Critically high 9.0-11.6 [facility] Comment on above: Performed By: #### P T ####[facility] Sdwmtyitwd[address] [place] [phone]. Farhat Leal Prot/Creat Uron 02-05-2022 Protein/Creatinine (U) [Mass ratio] 0.10 mg/mg Normal <0.15 [facility] Comment on above: Order Comment: Speci men Type: URINE SPECIMENOrdering Facility: [facility] Address: [address] [place] [address] Result Comment: Adul t Proteinuria Categories: <0.15 mg/mg is considered normal to mildly increased 0.15 - 0.50 mg/mg is considered moderately increased >0.50 mg/mg is considered severely increased KDIGO. (2013). KDIGO 2012 Clinical Practice Guideline for the Evaluation and Management of Chronic Kidney Disease. Official Journal of the International Society of Nephrology, 3(1), 1-150. Performed By: #### 2 890-2 ####[facility] LABCLIA [id number] [place] [address] [place] Protein/Creatinine (U) [Mass ratio]on 02-05-2022 Creatinine (U) [Mass/Vol] 86.9 mg/dL 20.0 - 300.0 mg/dL [facility] Protein (U) [Mass/Vol] 9 mg/dL 0 - 20 mg/dL [facility] Creatinine (U) [Mass/Vol] 86.9 mg/dL Normal 20.0-300.0 [facility] Comment on above: Order Comment: Speci men Type: URINE SPECIMENOrdering Facility: [facility] Address: [address] Performed By: #### 2 890-2 ####[facility] LABCLIA [id number] [place] [address] [place] Protein (U) [Mass/Vol] 9 mg/dL Normal 0-20 Cl [facility] Comment on above: Order Comment: Speci men Type: URINE SPECIMENOrdering Facility: [facility] Address: [address] [place] [address] Performed By: #### 2 890-2 ####[facility] LABIA [id number] [place] [address] [place] URINALYSIS, DIPSTICK ONLYon 02-05-2022 Bilirubin Ql (U) Negative Normal Negative [facility] Comment on above: Order Comment: Speci men Type: URINE SPECIMEN [facility]ing [facility]: [facility] Address: [address] Performed By: #### U A #### [facility] CLIA [id number] [address] [place] [address] [place] Clarity (Unsp spec) Clear Normal Clear [facility] Comment on above: Order Comment: Speci men Type: URINE SPECIMEN [facility]ing Facility: [facility] Address: [address] Performed By: #### U A #### [facility] CLIA [id number] [address] [place] [address] [place] Color (U) Yellow Normal Yellow [facility] Comment on above: Order Comment: Speci men Type: URINE SPECIMEN Ordering Facility: [facility] Address: [address] Performed By: #### U A #### [facility] CLIA [id number] [address] [place] [address] [place] Glucose Test strip (U) [Mass/Vol] 3+ Abnormal Trace, Negative [facility] Comment on above: Order Comment: Speci men Type: URINE SPECIMEN [facility]ing Facility: [facility] Address: [address] [place] [address] Performed By: #### U A #### [facility] CLIA [id number] [address] [place] [address] [place] Hemoglobin Ql (U) Negative Normal Negative, Trace [facility] Comment on above: Order Comment: Speci men Type: URINE SPECIMEN [facility]ing Facility: [facility] Address: [address] [place] [address] Performed By: #### U A #### [facility] CLIA [id number] [address] [place] [address] [place] Ketones Ql (U) Trace Normal Negative, Trace [facility] Comment on above: Order Comment: Speci men Type: URINE SPECIMEN [facility]ing Facility: [facility] Address: [address] Performed By: #### U A #### [facility] CLIA [id number] [address] [place] [address] [place] Leukocyte esterase Test strip Ql (U) Negative Normal Negative, 25 Loraine/mL [facility] Comment on above: Order Comment: Speci men Type: URINE SPECIMEN Ordering Facility: [facility] Address: [address] Performed By: #### U A #### [facility] CLIA [id number] [address] [place] [address] [place] Nitrite Ql (U) Negative Normal Negative [facility] Comment on above: Order Comment: Speci men Type: URINE SPECIMEN [facility]ing Facility: [facility] Address: [address] [place] [address] Performed By: #### U A #### [facility] CLIA [id number] [address] [place] [address] [place] pH (U) 5.5 [pH] Normal 5.0-8.0 [facility] Comment on above: Order Comment: Speci men Type: URINE SPECIMEN Ordering Facility: [facility] Address: [address] [place] [address] Performed By: #### U A #### [facility] IA [id number] [address] [place] [address] [place] Protein (U) [Mass/Vol] Negative Normal Trace , Negative [facility] Comment on above: Order Comment: Speci men Type: URINE SPECIMEN Ordering Facility: [facility] Address: [address] [place] [address] Performed By: #### U A #### [facility] IA [id number] [address] [place] [address] [place] Specific gravity (U) [Rel density] 1.014 Normal 1.005-1.030 [facility] Comment on above: Order Comment: Speci men Type: URINE SPECIMEN Ordering Facility: [facility] Address: [address] [place] [address] Performed By: #### U A #### [facility] [place] [id number] [address] [place] [address] [place] Urobilinogen Ql (U) 1+ Abnormal Negative [facility] Comment on above: Order Comment: Speci men Type: URINE SPECIMEN Ordering Facility: [facility] Address: [address] [place] [address] Performed By: #### U A #### [facility] [place] [id number] [address] [place] [address] [place] Bilirubin Ql (U) Negative Negative [facility] Clarity (Unsp spec) Clear Clear [facility] Color (U) Yellow Yellow [facility] Glucose Test strip (U) [Mass/Vol] 3+ Abnormal Trace, Negative [facility] Hemoglobin Ql (U) Negative Negative, Trace [facility] Ketones Ql (U) Trace Negative, Trace [facility] Leukocyte esterase Test strip Ql (U) Negative Negative, 25 Loraine/mL [facility] Nitrite Ql (U) Negative Negative [facility] pH (U) 5.5 [pH] 5.0 - 8.0 [facility] Protein (U) [Mass/Vol] Negative Trace , Negative [facility] Specific gravity (U) [Rel density] 1.014 1.005 - 1.030 [facility] Urobilinogen Ql (U) 1+ Abnormal Negative [facility] FK506 (TACROLIMUS) WHOLE BLO ODon 01-29-2022 Tacrolimus (FK506), Blood 11.1 ng/mL Normal 2.0-20.[address] [facility] Comment on above: Result Comment: Trou gh (immediately following transplant) 15.0 . Trough (steady state, 2 weeks or more after transplant): 3.0 - 8.0 . Performed by LC-MS/MS technology. Performed By: #### F K506T ####[facility] I[address] [place], [place] [address]Dr. Farhat Leal PHOSPHORUSon 01-26-2022 Phosphate [Mass/Vol] 4.1 mg/dL Normal 2.6-4.[address] [facility] Comment on above: Performed By: #### C HENRI MARROQUIN ####[facility] Avljwlv[address] [place], [place] [address]DrSkylar Leal PROF 14(COMP METB)on 022 Albumin [Mass/Vol] 2.1 g/dL Critically low 3.4-5.0 [facility] Comment on above: Performed By: #### C HENRI MARROQUIN ####[facility] [address]igq[address] [place] [address]Dr. Farhat Leal Albumin/Globulin [Mass ratio] 0.6 {ratio} Normal [facility] Comment on above: Performed By: #### C HENRI MARROQUIN ####[facility] Odvjrljv[address] [place], [place] [address]Dr. Farhat Leal ALP [Catalytic activity/Vol] 89 U/L Normal 46-116 [facility] Comment on above: Performed By: #### C ANA MARROQUINS ####[facility] [address]fvbkarwzi[address] [place] [address]Dr. Farhat Leal ALT [Catalytic activity/Vol] 27 U/L Normal 16-[address] [facility] Comment on above: Performed By: #### C MP, PHOS ####[facility] Jnspdtlhxz[address] [place] [address]Dr. Farhat Leal Anion gap [Moles/Vol] 12.3 mmol/L Normal [facility] Comment on above: Performed By: #### C MP, PHOS ####[facility] Pxbtpjpuhg63[address] [place] [address]Dr. Farhat Leal AST [Catalytic activity/Vol] 53 U/L Critically high 15-[address] [facility] Comment on above: Performed By: #### C CARA, PHOS ####[facility] Lxjgbvrsor[address] [place], [place] [address]Dr. Farhat Leal Bilirubin [Mass/Vol] 0.6 mg/dL Normal 0.2-1.[address] [facility] Comment on above: Performed By: #### C CARA, PHOS ####[facility] Gumwoqfwer[address] [place], [place] [address]Dr. Farhat Leal Calcium [Mass/Vol] 8.0 mg/dL Critically low 8.5-10.1 [facility] Comment on above: Performed By: #### C CARA, PHOS ####[facility] Jaczjoxqpr[address] [place], [place] [address]Dr. Farhat Leal Chloride [Moles/Vol] 97 mmol/L Critically low 98-[address] [facility] Comment on above: Performed By: #### C MP, PHOS ####[facility] Qysarldezz[address] [place], [place] [address]Dr. Farhat Leal CO2 [Moles/Vol] 26.6 mmol/L Normal 21.0-32.0 [facility] Comment on above: Performed By: #### C MP, PHOS ####[facility] Svnxxxdioa[address] [place], [place] [address]Dr. Farhat Leal Creatinine [Mass/Vol] 1.03 mg/dL Normal 0.70-1.[address] [facility] Comment on above: Performed By: #### C MP, PHOS ####[facility] Umhtrsivby[address] [place] [address]Dr. Farhat Leal EGFR-AF BURMESE >60 Normal >=60 [facility] Comment on above: Performed By: #### C MP, PHOS ####[facility] Hjyiyinoxt[address] [place] [address]Dr. Farhat Leal EGFR-NON AF BURMESE >60 Normal >=[address] [facility] Comment on above: Performed By: #### C MP, PHOS ####[facility] Lhumsqagwu[address] [place], [place] [address]Dr. Farhat Leal Globulin (S) [Mass/Vol] 3.7 g/dL Normal [facility] Comment on above: Performed By: #### C MP, PHOS ####[facility] Nukrlncxeh[address] [place], [place] [address]Dr. Farhat Leal Glucose [Mass/Vol] 287 mg/dL Critically high 74-106 T [facility] Comment on above: Performed By: #### C CARA, PHOS ####[facility] B[address]vjdwhzr[address] [place], [place] [address]Dr. Farhat Leal Potassium [Moles/Vol] 3.9 mmol/L Normal 3.5-5.[address] [facility] Comment on above: Performed By: #### C MP, PHOS ####[facility] Qghdaytawq[address] [place], [place] [address]Dr. Farhat Leal Protein [Mass/Vol] 5.8 g/dL Critically low 6.4-8.2 [facility] Comment on above: Performed By: #### C MP, PHOS ####[facility] Tbwafcupbn[address] [place], [place] [address]Dr. Farhat Leal Sodium [Moles/Vol] 132 mmol/L Critically low 136-145 [facility] Comment on above: Performed By: #### C MP, PHOS ####[facility] Whcylyxnhc[address] [place], [place] [address]Dr. Farhat Leal Urea nitrogen [Mass/Vol] 23.0 mg/dL Critically high 7.0-18.[address] [facility] Comment on above: Performed By: #### C HENRI MARROQUIN ####[facility] Unsymrzrrq13[address] [place] [id number]. Farhat Elvis Urea nitrogen/Creatinine [Mass ratio] 22.3 mg/mg Normal [facility] Comment on above: Performed By: #### C HENRI MARROQUIN ####[facility] Tfzkpczboi4[address] [place] [phone]. Farhat Leal FK506 (TACROLIMUS) WHOLE BLO ODon 01-21-2022 Tacrolimus (FK506), Blood 12.2 ng/mL Normal 2.0-20.[address] [facility] Comment on above: Result Comment: Trou gh (immediately following transplant) 15.0 . Trough (steady state, 2 weeks or more after transplant): 3.0 - 8.0 . Performed by LC-MS/MS technology. Performed By: #### F K506T ####[facility] Qwsobgvnlw39[address] [place] [address]Dr. Farhat Leal ACID FAST SMEAR AND CXon Acid Fast Culture Negative Normal [facility] Comment on above: Result Comment: No a abdiel fast bacilli isolated after 6 weeks. Performed By: #### A FB ####[facility] Lb[address]qnqq[address] [place] [phone]. Madelynlorri Leal Acid Fast Smear Negative Normal [facility] Comment on above: Performed By: #### A FB ####[facility] V[address] [place], [place] [address]Dr. Farhat Leal [employer] Specimen Processing Tissue Grinding Normal [facility] Comment on above: Performed By: #### A FB ####[facility] G[address]mqrf74[address] [place] [phone]. Farhat Hassan 01-20-2022 DIAMANTEN Telephone (KIMBERLY) ALEX ALMONTE ([id number]) 1945 M TRN Date Time Provider Department 01/20/22 VAN OLIVAREZ During your visit today, we recorded the following information about you: Van Olivarez APRN.CNP 01/20/2022 1:14 PM Signed Labs noted from yesterday. Pt is currently residing at [facility], I spoke with the Nurse, [...] by mouth daily with lunch. 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/2002 DIABETES UNCOMPL ADULT-UNCONTRLLED [[id number]] 02/24/2002 KIDNEY TRANSPLANT STATUS [Z94.0] 09/07/2003 PROPHYLACTIC IMMUNOTHERAPY [Z29.8] 07/30/2006 [facility] STEROIDS [BXM9043] 07/30/2006 VITAMIN D DEFICIENCY NOS [E55.9] 09/07/2008 [...] diabetes mellitus with diabetic peripher*11/29/2021 Atherosclerosis of [place] artery of extremity w*11/29/2021 Malnutrition of moderate degree (HCC) [E44.0] 12/01/2021 Dermatitis associated with moisture [L30.8] 12/04/2021 Encounter Status:Closed by VAN OLIVAREZ on 01/20/22 [facility](COMP METB)on 022 Albumin [Mass/Vol] 1.9 g/dL Critically low 3.4-5.0 [facility] Comment on above: Performed By: #### C MP ####[facility] Gdvvdcdili[address] [place] [phone] Leal Albumin/Globulin [Mass ratio] 0.5 {ratio} Normal [facility] Comment on above: Performed By: #### C MP ####[facility] Waqxungksp[address] [place] [phone] Leal ALP [Catalytic activity/Vol] 78 U/L Normal 46-[address] [facility] Comment on above: Performed By: #### C MP ####[facility] Tvkkipljvz2816 [place] [phone] Leal ALT [Catalytic activity/Vol] 22 U/L Normal 16-[address] [facility] Comment on above: Performed By: #### C MP ####[facility] Zxpogqvtrf7212 [place] [phone]. Farhat Leal Anion gap [Moles/Vol] 8.0 mmol/L Normal [facility] Comment on above: Performed By: #### C MP ####[facility] Zztgipjwgz7355 [place] [phone]. Farhat Leal AST [Catalytic activity/Vol] 92 U/L Critically high 15-[address] [facility] Comment on above: Performed By: #### C MP ####[facility] Ekgzlzdmtw6727 [place] [phone]. Farhat Elvis Bilirubin [Mass/Vol] 0.7 mg/dL Normal 0.2-1.[address] [facility] Comment on above: Performed By: #### C MP ####[facility] Azauvwopns[address] [place] [address]Dr. Farhat Leal Calcium [Mass/Vol] 7.8 mg/dL Critically low 8.5-10.1 Th e [facility] Comment on above: Performed By: #### C MP ####[facility] Mzfrhbyqjg6[address] [place] [address]Dr. Madelynlorri Leal Chloride [Moles/Vol] 99 mmol/L Normal 98-[address] [facility] Comment on above: Performed By: #### C MP ####[facility] Xvfqatoiva7495 [place] [phone]. Madelynlorri Elvis CO2 [Moles/Vol] 30.9 mmol/L Normal 21.0-32.0 [facility] Comment on above: Performed By: #### C MP ####[facility] Fzplrqetjj7320 [place] [phone]. Farhat Elvis Creatinine [Mass/Vol] 0.95 mg/dL Normal 0.70-1.[address] [facility] Comment on above: Performed By: #### C MP ####[facility] Izaihygnbp7639 [place] [phone]. Farhat Leal EGFR-AF BURMESE >60 Normal >=60 [facility] Comment on above: Performed By: #### C MP ####[facility] Ejbqbicxzc6223 [place] [address]Dr. Farhat Leal EGFR-NON AF BURMESE >60 Normal >=[address] [facility] Comment on above: Performed By: #### C MP ####[facility] Kjvitlxykb2390 [place] [phone]. Farhat Leal Globulin (S) [Mass/Vol] 3.9 g/dL Normal [facility] Comment on above: Performed By: #### C MP ####[facility] Arxprqcbmq12[address] [place] [address]Dr. Farhat Leal Glucose [Mass/Vol] 124 mg/dL Critically high 74-106 T [facility] Comment on above: Performed By: #### C MP ####[facility] Azcwfrifxz4[address] [place] [address]Dr. Farhat Leal Potassium [Moles/Vol] 5.9 mmol/L Critically high 3.5-5.[address] [facility] Comment on above: Performed By: #### C MP ####[facility] [address]pmxuqse[address] [place], [place] [address]Dr. Farhat Leal Protein [Mass/Vol] 5.8 g/dL Critically low 6.4-8.2 [facility] Comment on above: Performed By: #### C MP ####[facility] A[address]xvjfmvr[address] [place], [place] [address]Dr. Farhat Leal Sodium [Moles/Vol] 132 mmol/L Critically low 136-145 [facility] Comment on above: Performed By: #### C MP ####[facility] Uwtdebapye[address] [place], [place] [address]Dr. Farhat Leal Urea nitrogen [Mass/Vol] 18.0 mg/dL Normal 7.0-18.[address] [facility] Comment on above: Performed By: #### C MP ####[facility] Rrxgvwunsb[address] [place], [place] [address]Dr. Farhat Leal Urea nitrogen/Creatinine [Mass ratio] 18.9 mg/mg Normal [facility] Comment on above: Performed By: #### C MP ####[facility] Ksaiztgzpw6990 [place] [phone]. Farhat Leal INR (POC)on 01-12-2022 INR Coag (PPP) [Relative time] 2.6 {INR} High 0.8 - 1.2 [facility] Internal Quality Check Acceptable Cl [facility] ACID FAST SMEAR AND CXon Acid Fast Culture Negative Normal [facility] Comment on above: Result Comment: No a abdiel fast bacilli isolated after 6 weeks. Performed By: #### A FB ####[facility] Ehufkbcmff[address] [place], [place] [address]Dr. Farhat Leal Acid Fast Smear Negative Normal [facility] Comment on above: Performed By: #### A FB ####[facility] Ebskqwpsye[address] [place], [place] [address]Dr. Farhat Leal [employer] Specimen Processing Direct Inoculation Normal [facility] Comment on above: Performed By: #### A FB ####[facility] Kolsoproio[address] [place], [place] [address]Dr. Farhat Leal ACID FAST SMEAR AND CXon Acid Fast Culture Negative Normal [facility] Comment on above: Result Comment: No a abdiel fast bacilli isolated after 6 weeks. Performed By: #### A FB ####[facility] Prnhsauved[address] [place], [place] [address]Dr. Farhat Leal Acid Fast Smear Negative Normal [facility] Comment on above: Performed By: #### A FB ####[facility] Ysmwbzcmue[address] [place], [place] [address]Dr. Farhat Leal [employer] Specimen Processing Tissue Grinding Normal [facility] Comment on above: Performed By: #### A FB ####[facility] Srxonenrkc[address] [place], [place] [address]Dr. Farhat Leal FUNGAL CULTUREon 01-02-2022 Fungus (Mycology) Culture Final report Normal [facility] Comment on above: Performed By: #### C XFUN ####[facility] Qvihaavifw[address] [place], [place] [address]Dr. Farhat Leal Fungus Stain Final report Normal [facility] Comment on above: Performed By: #### C XFUN ####[facility] [address] [place] [address]. Madelynlorri Leal Result 1 Comment Normal [facility] Comment on above: Result Comment: ANNI/ Calcofluor preparation: no fungus observed. Performed By: #### C XFUN ####[facility] Adicmpcmcr[address] [place], [place] [address]Dr. Farhat Leal Result Comment: No y east or mold isolated after 4 weeks. FK506 (TACROLIMUS) WHOLE BLO ODon 12-31-2021 Tacrolimus (FK506), Blood 7.7 ng/mL Normal 2.0-20.0 [facility] Comment on above: Result Comment: Trou gh (immediately following transplant) 15.0 . Trough (steady state, 2 weeks or more after transplant): 3.0 - 8.0 . Performed by LC-MS/MS technology. Performed By: #### F K506T ####[facility] Hnxzummbnu[address] [place], [place] [address]Dr. Farhat Leal HEMOGRAM AND PLATELon 2021 Hematocrit (Bld) [Volume fraction] 27.1 % Critically low 42.0-54.[address] [facility] Comment on above: Performed By: #### H H ####[facility] Mrbmvpxabv[address] [place] [address]. Farhat Leal Hemoglobin (Bld) [Mass/Vol] 8.7 g/dL Critically low 14.0-18.[address] [facility] Comment on above: Performed By: #### H H ####[facility] An[address]prjbua[address] [place], [place] [address]Dr. Farhat Leal MCH (RBC) [Entitic mass] 30.3 pg Normal 25.9-34.0 [facility] Comment on above: Performed By: #### H H ####[facility] R[address] [place] [address]. Farhat Leal MCHC (RBC) [Mass/Vol] 32.1 g/dL Normal 29.9-35.2 [facility] Comment on above: Performed By: #### H H ####[facility] Dujnwkhjmb[address] [place] [phone]. Farhat Lela MCV (RBC) [Entitic vol] 94.4 fL Critically high 80.0-94.[address] [facility] Comment on above: Performed By: #### H H ####[facility] Cbaxygzree[address] [place] [phone]. Farhat Leal PLT 355 103/ul Normal 150-[address] [facility] Comment on above: Performed By: #### H H ####[facility] Uccwgibaou8223 [place] [phone]. Farhat Leal RBC 2.87 106/ul Critically low 4.70-6.10 [facility] Comment on above: Performed By: #### H H ####[facility] Milltmixgs[address] [place] [address]Dr. Farhat Leal WBC 6.0 103/ul Normal 4.0-11.[address] [facility] Comment on above: Performed By: #### H H ####[facility] Yckiovrpkv[address] [place] [address]Dr. Farhat Leal PHOSPHORUSon 12-29-2021 Phosphate [Mass/Vol] 2.5 mg/dL Critically low 2.6-4.[address] [facility] Comment on above: Performed By: #### P HOS, CMP ####[facility] Bykvodupyr[address] [place] [address]Dr. aFrhat Elvis PROF 14(COMP METB)on 022 Albumin [Mass/Vol] 1.7 g/dL Critically low 3.4-5.0 [facility] Comment on above: Performed By: #### P HOS, CMP ####[facility] Nzdwazgoiu85[address] [place] [address]Dr. Farhat Leal Albumin/Globulin [Mass ratio] 0.5 {ratio} Normal [facility] Comment on above: Performed By: #### P HOS, CMP ####[facility] Bwkhqqspfk6[address] [place] [address]Dr. Farhat Leal ALP [Catalytic activity/Vol] 78 U/L Normal 46-[address] [facility] Comment on above: Performed By: #### P HOS, CMP ####[facility] Ccmtfvausg1084 [place] [address]Dr. Farhat Leal ALT [Catalytic activity/Vol] 12 U/L Critically low 16-[address] [facility] Comment on above: Performed By: #### P HOS, CMP ####[facility] Aompwbbnfb8061 [place] [address]Dr. Farhat Leal Anion gap [Moles/Vol] 5.1 mmol/L Normal [facility] Comment on above: Performed By: #### P HOS, CMP ####[facility] Ortycfuqje[address] [place], [place] [address]Dr. Farhat Leal AST [Catalytic activity/Vol] 22 U/L Normal 15-[address] [facility] Comment on above: Performed By: #### P HOS, CMP ####[facility] Agzsjbebjj[address] [place], [place] [address]Dr. Farhat Leal Bilirubin [Mass/Vol] 0.6 mg/dL Normal 0.2-1.[address] [facility] Comment on above: Performed By: #### P HOS, CMP ####[facility] Mnkcdyffhe[address] [place], [place] [address]Dr. Farhat Leal Calcium [Mass/Vol] 8.1 mg/dL Critically low 8.5-10.1 Th e [facility] Comment on above: Performed By: #### P HOS, CMP ####[facility] Psorfcizxv[address] [place], [place] [address]Dr. Farhat Leal Chloride [Moles/Vol] 100 mmol/L Normal 98-107 [facility] Comment on above: Performed By: #### P HOS, CMP ####[facility] Eoyluksklg[address] [place], [place] [address]Dr. Farhat Leal CO2 [Moles/Vol] 34.2 mmol/L Critically high 21.0-32.[address] [facility] Comment on above: Performed By: #### P HOS, CMP ####[facility] Msamecjppv[address] [place], [place] [address]Dr. Farhat Leal Creatinine [Mass/Vol] 0.92 mg/dL Normal 0.70-1.[address] [facility] Comment on above: Performed By: #### P HOS, CMP ####[facility] Uhdhhpenht7[address] [place] [phone]. Farhat Leal EGFR-AF BURMESE >60 Normal >=60 [facility] Comment on above: Performed By: #### P HOS, CMP ####[facility] Kbgnxkcqdx27[address] [place] [phone]. Farhat Leal EGFR-NON AF BURMESE >60 Normal >=[address] [facility] Comment on above: Performed By: #### P HOS, CMP ####[facility] Ojhnkfbjwh0772 [place] [phone]. Farhat Leal Globulin (S) [Mass/Vol] 3.3 g/dL Normal [facility] Comment on above: Performed By: #### P HOS, CMP ####[facility] Ybhfcnmpfv5199 [place] [address]Dr. Farhat Elvis Glucose [Mass/Vol] 116 mg/dL Critically high 74-106 [facility] Comment on above: Performed By: #### P HOS, CMP ####[facility] Wvnfyoezpg9830 [place] [phone]. Farhat Elvis Potassium [Moles/Vol] 3.3 mmol/L Critically low 3.5-5.[address] [facility] Comment on above: Performed By: #### P HOS, CMP ####[facility] Ejuvufpcry5[address] [place] [phone]. Farhat Elvis Protein [Mass/Vol] 5.0 g/dL Critically low 6.4-8.2 [facility] Comment on above: Performed By: #### P HOS, CMP ####[facility] Dwiuftyrul25[address] [place] [address]Dr. Farhat Leal Sodium [Moles/Vol] 136 mmol/L Normal 136-145 [facility] Comment on above: Performed By: #### P HOS, CMP ####[facility] Wofxhaozew0237 [place] [phone]. Farhat Elvis Urea nitrogen [Mass/Vol] 14.0 mg/dL Normal 7.0-18.0 [facility] Comment on above: Performed By: #### P HOS, CMP ####[facility] Hxqeliajax[address] [place], [place] [address]Dr. Farhat Leal Urea nitrogen/Creatinine [Mass ratio] 15.2 mg/mg Normal [facility] Comment on above: Performed By: #### P HOS, CMP ####[facility] Bxmpgzoexw[address] [place], [place] [address]Dr. Farhat Leal PROTIMEon 12-29-2021 INR Coag (PPP) [Relative time] 1.26 {INR} Normal [facility] Comment on above: Performed By: #### P T ####[facility] Qyxjkwzzdx[address] [place], [place] [address]Dr. Farhat Leal INR GUIDELINES SEE BELOW Normal The [facility] Comment on above: Result Comment: MALINA RED INR: 2.0 - 3.0 CONDITIONS NOT LISTED BELOW 2.5 - 3.5 FOR PROSTHETIC HEART VALVE REPLACEMENT 2.5 - 3.5 RECURRENT THROMBOSIS Performed By: #### P T ####[facility] Oilejaqcqc[address] [place], [place] [address]Dr. Farhat Leal PT Coag (PPP) [Time] 13.4 s Critically high 9.0-11.6 The [facility] Comment on above: Performed By: #### P T ####[facility] Bpxeerqutr[address] [place], [place] [address]Dr. Farhat Leal XR MODIFIED BARIUM SWALLOWon 12-25-2021 XR MODIFIED BARIUM SWALLOW Normal The [facility] FUNGAL CULTUREon 12-24-2021 Fungus (Mycology) Culture Final report Normal The [facility] Comment on above: Performed By: #### C XFUN ####[facility] Beehopyeaq232[address] [place], [place] [address]Dr. Farhat Leal Fungus Stain Final report Normal The [facility] Comment on above: Performed By: #### C XFUN ####[facility] Valjctdprf118[address] [place], [place] [address]Dr. Farhat Leal Result 1 Comment Normal The [facility] Comment on above: Result Comment: ANNI/ Calcofluor preparation: no fungus observed. Performed By: #### C XFUN ####[facility] [address]qudzzq[address] [place] [address]Dr. Madelynlorri Leal Result Comment: No y east or mold isolated after 4 weeks. VANCOMYCIN TROUGHon 12-21-19 VANCOMYCIN TROUGH 14.4 ug/ml Normal 5.0-20.0 [facility] Comment on above: Performed By: #### V ANCT ####[facility] Pcxidgxrng21[address] [place], [place] [address]Dr. Farhat Leal CBC AUTO DIFFon 12-14-2021 BASO # 0.0 103/ul Normal 0.0-0.1 The [facility] Comment on above: Performed By: #### C BC ####[facility] Ipfrcxyhfs[address] [place], [place] [address]Dr. Farhat Leal Basophils/100 WBC (Bld) 0.2 % Normal 0.2-2.0 The [facility] Comment on above: Performed By: #### C BC ####[facility] Ismahjqcvw17[address] [place], [place] [address]Dr. Farhat Leal EO # 0.2 103/ul Normal 0.0-0.7 The [facility] Comment on above: Performed By: #### C BC ####[facility] Dvlubqpipc9[address] [place], [place] [address]Dr. Farhat Leal Eosinophils/100 WBC (Bld) 2.1 % Normal 0.9-7.0 The [facility] Comment on above: Performed By: #### C BC ####[facility] Tzwgwtogpv632[address] [place], [place] [address]Dr. Farhat Leal Erythrocyte distribution width (RBC) [Ratio] 18.2 % Critically high 11.0-15.0 The [facility] Comment on above: Performed By: #### C BC ####[facility] Dpnzlyarcu[address] [place], [place] [address]Dr. Farhat Leal Hematocrit (Bld) [Volume fraction] 25.8 % Critically low 42.0-54.0 The [facility] Comment on above: Performed By: #### C BC ####[facility] Gqk[address]vxn[address] [place] [address]Dr. Farhat Leal Hemoglobin (Bld) [Mass/Vol] 8.0 g/dL Critically low 14.0-18.0 The [facility] Comment on above: Performed By: #### C BC ####[facility] Gjoatxtwhj[address] [place] [address]Dr. Farhat Leal IG # 0.08 10e3/ul Critically high 0.00-0.03 The [facility] Comment on above: Performed By: #### C BC ####[facility] Aqzsqrzkms[address] [place] [address]Dr. Farhat Leal IG % 0.7 % Critically high 0.0-0.5 The [facility] Comment on above: Performed By: #### C BC ####[facility] Pqjervxsmz75[address] [place] [address]Dr. Farhat Leal LYMPH # 0.9 103/ul Critically low 1.2-3.8 The [facility] Comment on above: Performed By: #### C BC ####[facility] Ndacuvcpzp[address] [place] [address]Dr. Farhat Leal Lymphocytes/100 WBC (Bld) 8.7 % Critically low 20.5-60.0 The [facility] Comment on above: Performed By: #### C BC ####[facility] Ugfguttedt[address] [place] [address]Dr. Farhat Leal MANUAL DIFF REQ NO Normal The [facility] Comment on above: Performed By: #### C BC ####[facility] Yxsamipzof69[address] [place] [address]Dr. Farhat Leal MCH (RBC) [Entitic mass] 30.0 pg Normal 25.9-34.0 The [facility] Comment on above: Performed By: #### C BC ####[facility] Xzqbmqbjmh05[address] [place], [place] [address]Dr. Farhat Leal MCHC (RBC) [Mass/Vol] 31.0 g/dL Normal 29.9-35.2 The [facility] Comment on above: Performed By: #### C BC ####[facility] Atmcodldyn[address] [place] [id number]. Farhat Leal MCV (RBC) [Entitic vol] 96.6 fL Critically high 80.0-94.0 The [facility] Comment on above: Performed By: #### C BC ####[facility] Yhxygwnjfo76[address] [place] [id number]. Farhat Leal MONO # 0.7 103/ul Normal 0.3-0.8 The [facility] Comment on above: Performed By: #### C BC ####[facility] Ahyhwllaqh66[address] [place] [address]Dr. Farhat Leal Monocytes/100 WBC (Bld) 6.7 % Normal 1.7-12.0 The [facility] Comment on above: Performed By: #### C BC ####[facility] Czmsyhvkkw[address] [place], [place] [address]Dr. Farhat Leal NEUT # 8.8 103/ul Critically high 1.4-6.5 The [facility] Comment on above: Performed By: #### C BC ####[facility] Tbrvamacrh56[address] [place], [place] [address]Dr. Farhat Leal Neutrophils/100 WBC (Bld) 81.6 % Critically high 43.0-75.0 The [facility] Comment on above: Performed By: #### C BC ####[facility] Sopekpwsgq[address] [place] [address]Dr. Farhat Leal Platelet mean volume (Bld) [Entitic vol] 10.5 fL Normal 9.5-13.5 The [facility] Comment on above: Performed By: #### C BC ####[facility] Yakhmlelxy[address] [place] [id number]. Farhat Leal PLT 285 103/ul Normal 150-450 The [facility] Comment on above: Performed By: #### C BC ####[facility] Ybyhbofhei49[address] [place] [address]Dr. Farhat Elvis RBC 2.67 106/ul Critically low 4.70-6.10 The [facility] Comment on above: Performed By: #### C BC ####[facility] Bpixpasrif8764 [place] [address]Dr. Farhat Elvis WBC 10.7 103/ul Normal 4.0-11.[address] [facility] Comment on above: Performed By: #### C BC ####[facility] Obomrdwwmz[address] [place], [place] [address]Dr. Farhat Elvis PROF CHEM 8 (BAS METB)on Anion gap [Moles/Vol] 12.4 mmol/L Normal [facility] Comment on above: Performed By: #### B MP ####[facility] Lfnvilqjhl[address] [place], [place] [address]Dr. Farhat Leal Calcium [Mass/Vol] 7.8 mg/dL Critically low 8.5-10.1 [facility] Comment on above: Performed By: #### B MP ####[facility] Juqmishasz[address] [place], [place] [address]Dr. Farhat Leal Chloride [Moles/Vol] 102 mmol/L Normal 98-[address] [facility] Comment on above: Performed By: #### B MP ####[facility] Ainmypabsg1134[address] [place], [place] [address]Dr. Farhat Leal CO2 [Moles/Vol] 28.1 mmol/L Normal 21.0-32.0 [facility] Comment on above: Performed By: #### B MP ####[facility] Elclhxwker740[address] [place], [place] [address]Dr. Farhat Leal Creatinine [Mass/Vol] 1.24 mg/dL Normal 0.70-1.[address] [facility] Comment on above: Performed By: #### B MP ####[facility] Ercklppjsl[address] [place], [place] [address]Dr. Farhat Leal EGFR-AF BURMESE >60 Normal >=60 The [facility] Comment on above: Performed By: #### B MP ####[facility] Mfglrpckix84[address] [place], [place] [address]Dr. Farhat Leal EGFR-NON AF BURMESE 57 mL/min/1.73m2 Critically low >=60 The [facility] Comment on above: Performed By: #### B MP ####[facility] Qinosaserm7294 [place] [id number]. Farhat Leal Glucose [Mass/Vol] 296 mg/dL Critically high 74-106 T [facility] Comment on above: Performed By: #### B MP ####[facility] Ztdeemtxtr4[address] [place] [phone]. Farhat Leal Potassium [Moles/Vol] 3.5 mmol/L Normal 3.5-5.[address] [facility] Comment on above: Performed By: #### B MP ####[facility] Tswvneoqsk[address] [place] [address]Dr. Farhat Leal Sodium [Moles/Vol] 139 mmol/L Normal 136-145 [facility] Comment on above: Performed By: #### B MP ####[facility] Ckcncnslxp69[address] [place] [address]Dr. Farhat Leal Urea nitrogen [Mass/Vol] 27.0 mg/dL Critically high 7.0-18.[address] [facility] Comment on above: Performed By: #### B MP ####[facility] Quzcrwegvr256[address] [place], [place] [address]Dr. Farhat Leal Urea nitrogen/Creatinine [Mass ratio] 21.8 mg/mg Normal [facility] Comment on above: Performed By: #### B MP ####[facility] Azataebafm[address] [place] [address]Dr. Farhat Leal PROTIMEon 12-14-2021 INR Coag (PPP) [Relative time] 3.36 {INR} Normal [facility] Comment on above: Performed By: #### P T ####[facility] Ypdfgxzpzg0[address] [place] [phone]. Farhat Leal INR GUIDELINES SEE BELOW Normal The [facility] Comment on above: Result Comment: MALINA RED INR: 2.0 - 3.0 CONDITIONS NOT LISTED BELOW 2.5 - 3.5 FOR PROSTHETIC HEART VALVE REPLACEMENT 2.5 - 3.5 RECURRENT THROMBOSIS Performed By: #### P T ####[facility] Uaqrentxvu[address] [place], [place] [address]Dr. Farhat Leal PT Coag (PPP) [Time] 33.5 s Critically high 9.0-11.6 The [facility] Comment on above: Performed By: #### P T ####[place] [address] [place] [address]DrSkylar Leal XR CHEST 1 Von 12-14-2021 XR CHEST 1 V Normal The [facility] No Panel Informationon 12-01 BLANK _ [facility] Implant Date 04/22/2012 [facility] CHECKon AMS Duration (ms) 5 of 8 [facility] AMS Fallback Rate (bpm) DDIR [facility] AV Delay Adaptive Paced Minimum (ms) 300 ms [facility] AV Delay Adaptive Rate Maximum (bpm) 130 {beats}/min [facility] AV Delay Adaptive Rate Minimum (bpm) 70 {beats}/min [facility] AV Delay Adaptive Sensed Minimum (ms) 300 ms [facility] AV Delay Paced (ms) 300 ms [facility] AV Delay Sensed (ms) 300 ms [facility] Jaciel LV Pacing Polarity Unknown [facility] Jaciel LV Sensing Polarity Unknown [facility] Jaciel RA Pacing Amplitude (volts) 2.4 V [facility] Jaciel RA Pacing Polarity BI [facility] Jaciel RA Pacing Pulse Width (ms) 0.4 ms [facility] Jaciel RA Sensing Amplitude (mvolts) AUTO [facility] Jaciel RA Sensing Blanking Period (ms) 56 ms [facility] Jaciel RA Sensing Polarity BI [facility] Jaciel RA Sensing Refractory Period (ms) AUTO [facility] Jaciel RV Pacing Amplitude (volts) 3.4 V [facility] Jaciel RV Pacing Polarity BI [facility] Jaciel RV Pacing Pulse Width (ms) 0.4 ms [facility] Jaciel RV Sensing Amplitude (mvolts) AUTO [facility] Jaciel RV Sensing Blanking Period (ms) 30 ms [facility] Jaciel RV Sensing Polarity BI [facility] Jaciel RV Sensing Refractory Period (ms) 250 ms [facility] Hysteresis Rate (bpm) 60 {beats}/min [facility] Lead1 Mfg SUZETTE [facility] Lead2 Mfg SUZETTE [facility] Location RA [facility] Location RV [facility] Lower Rate (bpm) 60 {beats}/min [facility] Max Sensor Rate (bmp) 130 {beats}/min [facility] Model 780101 Monika Doming[facility] Model 103287 [facility] Model 646078 [facility] Pacemaker Dependent? NO [facility] PM-Device Mfg BIO [facility] PM-PMT Intervention ON [facility] PM-PVC Intervention ON [facility] PM-Rate Modulation Acceleration Reaction 4 s [facility] PM-Rate Modulation Deceleration 0.5 m [facility] PM-Rate Modulation Cataño 23 [facility] PM-Rate Modulation Threshold Medium [facility] RA Bipolar Impedance ohms 448 ohm [facility] Rhythm AF with controlled ventricular rate. [facility] RV Bipolar Impedance ohms 390 ohm [facility] Serial Number [id number] [facility] Serial Number [id number] [facility] Serial Number [id number] [facility] Thresh RA Sensing Amplitude (mvolts) 2.4 mV [facility] Thresh RV Capture Amplitude (volts) 1.8 V [facility] Thresh RV Capture Duration (ms) 0.4 ms [facility] Thresh RV Sensing Amplitude (mvolts) 2.4 mV [facility] Tracking Rate (bpm) 160 {beats}/min [facility] BNPon 11-28-2021 Natriuretic peptide B (Bld) [Mass/Vol] 11246.0 pg/mL Critically high <=1,800.0 The [facility] Comment on above: Performed By: #### C MP, BNP, CRP ####[facility] Krbinhjhyt[address] [place], [place] [address]DrSkylar Leal CBC AUTO DIFFon 11-28-2021 BASO # 0.0 103/ul Normal 0.0-0.1 The [facility] Comment on above: Performed By: #### C BC ####[facility] Nhagymajye[address] [place], [place] [address]Dr. Farhat Leal Basophils/100 WBC (Bld) 0.3 % Normal 0.2-2.0 The [facility] Comment on above: Performed By: #### C BC ####[facility] Fkosplkzdk9[address] [place], [place] [address]DrSkylar Leal EO # 0.1 103/ul Normal 0.0-0.7 The [facility] Comment on above: Performed By: #### C BC ####[facility] Tumitbbtyl8[address] [place], [place] [address]DrSkylar Leal Eosinophils/100 WBC (Bld) 1.0 % Normal 0.9-7.0 The [facility] Comment on above: Performed By: #### C BC ####[facility] Ajjxsuahsc[address] [place] [address]Dr. Farhat Leal Erythrocyte distribution width (RBC) [Ratio] 14.0 % Normal 11.0-15.[address] [facility] Comment on above: Performed By: #### C BC ####[facility] Amyvvwijcg[address] [place], [place] [address]Dr. Farhat Leal Hematocrit (Bld) [Volume fraction] 27.6 % Critically low 42.0-54.0 The [facility] Comment on above: Performed By: #### C BC ####[facility] Cdtpalvtxl[address] [place], [place] [address]Dr. Farhat Leal Hemoglobin (Bld) [Mass/Vol] 9.0 g/dL Critically low 14.0-18.[address] [facility] Comment on above: Performed By: #### C BC ####[facility] Uedtxumjsr[address] [place], [place] [address]Dr. Farhat Leal IG # 0.12 10e3/ul Critically high 0.00-0.03 [facility] Comment on above: Performed By: #### C BC ####[facility] Jdpvikjcly175[address] [place], [place] [address]Dr. Farhat Leal IG % 1.0 % Critically high 0.0-0.5 [facility] Comment on above: Performed By: #### C BC ####[facility] Lfhkyhgiri8[address] [place], [place] [address]Dr. Farhat Leal LYMPH # 1.2 103/ul Normal 1.2-3.8 The [facility] Comment on above: Performed By: #### C BC ####[facility] Bddateitdh955[address] [place], [place] [address]Dr. Farhat Leal Lymphocytes/100 WBC (Bld) 9.9 % Critically low 20.5-60.0 The [facility] Comment on above: Performed By: #### C BC ####[facility] Mfosvieeqo898[address] [place], [place] [address]Dr. Madelynlorri Leal MANUAL DIFF REQ NO Normal [facility] Comment on above: Performed By: #### C BC ####[facility] Lvflrnjhyq4[address] [place] [address]Dr. Farhat Elvis MCH (RBC) [Entitic mass] 30.0 pg Normal 25.9-34.0 The [facility] Comment on above: Performed By: #### C BC ####[facility] Kyepudvhzp[address] [place], [place] [address]Dr. Farhat Elvis MCHC (RBC) [Mass/Vol] 32.6 g/dL Normal 29.9-35.2 The [facility] Comment on above: Performed By: #### C BC ####[facility] Yjeggvtroc[address] [place], [place] [address]Dr. Farhat Leal MCV (RBC) [Entitic vol] 92.0 fL Normal 80.0-94.0 The [facility] Comment on above: Performed By: #### C BC ####[facility] Xgwxugixhz[address] [place], [place] [address]Dr. Farhat Leal MONO # 1.1 103/ul Critically high 0.3-0.8 [facility] Comment on above: Performed By: #### C BC ####[facility] Agkvkhhfov72[address] [place], [place] [address]Dr. Farhat Leal Monocytes/100 WBC (Bld) 9.3 % Normal 1.7-12.0 The [facility] Comment on above: Performed By: #### C BC ####[facility] Vrpagjfmnp[address] [place], [place] [address]Dr. Farhat Leal NEUT # 9.3 103/ul Critically high 1.4-6.5 [facility] Comment on above: Performed By: #### C BC ####[facility] Nyskqnvvzk235[address] [place], [place] [address]Dr. Farhat Leal Neutrophils/100 WBC (Bld) 78.5 % Critically high 43.0-75.0 The [facility] Comment on above: Performed By: #### C BC ####[facility] Yfllojpylh[address] [place], [place] [address]Dr. Farhat Leal Platelet mean volume (Bld) [Entitic vol] 9.6 fL Normal 9.5-13.[address] [facility] Comment on above: Performed By: #### C BC ####[facility] Zoihtqwtvr74[address] [place] [address]Dr. Farhat Leal PLT 357 103/ul Normal 150-450 The [facility] Comment on above: Performed By: #### C BC ####[facility] Guosncidqq7335 [place] [address]Dr. Farhat Leal RBC 3.00 106/ul Critically low 4.70-6.10 [facility] Comment on above: Performed By: #### C BC ####[facility] Iwxujtcjfe4128 [place] [address]Dr. Farhat Leal WBC 11.8 103/ul Critically high 4.0-11.0 [facility] Comment on above: Performed By: #### C BC ####[facility] Qxhjdvnafn64[address] [place], [place] [address]Dr. Farhat Leal CRPon 11-28-2021 CRP 20.9 mg/dL Critically high <=1.0 [facility] Comment on above: Performed By: #### C MP, BNP, CRP ####[facility] Arzutvevkp[address] [place] [address]Dr. Farhat Leal CULTURE OTHERon 11-28-2021 CULTURE OTHER Normal The [facility] Comment on above: Performed By: #### O THCX ####[facility] Meszpaqyhl[address] [place] [address]Dr. Farhat Leal CULTURE OTHER Normal The [facility] Comment on above: Performed By: #### O THCX ####[facility] Bzypzmuiei[address] [place], [place] [address]Dr. Farhat Leal PROF 14(COMP METB)on 022 Albumin [Mass/Vol] 1.4 g/dL Critically low 3.4-5.0 [facility] Comment on above: Performed By: #### C MP, BNP, CRP ####[facility] Ldpxvoaxvf1088 [place] [address]Dr. Farhat Leal Albumin/Globulin [Mass ratio] 0.4 {ratio} Normal [facility] Comment on above: Performed By: #### C MP, BNP, CRP ####[facility] Wmujqeznnv14[address] [place] [address]Dr. Farhat Leal ALP [Catalytic activity/Vol] 82 U/L Normal 46-[address] [facility] Comment on above: Performed By: #### C MP, BNP, CRP ####[facility] Mhhndpfmrb9595 [place] [address]Dr. Farhat Elvis ALT [Catalytic activity/Vol] 20 U/L Normal 16-[address] [facility] Comment on above: Performed By: #### C MP, BNP, CRP ####[facility] Xybntkkkra8[address] [place], [place] [address]Dr. Madelynlorri Leal Anion gap [Moles/Vol] 13.0 mmol/L Normal [facility] Comment on above: Performed By: #### C MP, BNP, CRP ####[facility] Wxtslwsigp[address] [place], [place] [address]Dr. Farhat Leal AST [Catalytic activity/Vol] 33 U/L Normal 15-[address] [facility] Comment on above: Performed By: #### C MP, BNP, CRP ####[facility] Rovjqzdvtj06[address] [place], [place] [address]Dr. Madelynlorri Leal Bilirubin [Mass/Vol] 0.7 mg/dL Normal 0.2-1.[address] [facility] Comment on above: Performed By: #### C MP, BNP, CRP ####[facility] Lvnmgzyjlp255[address] [place], [place] [address]Dr. Madelynlorri Leal Calcium [Mass/Vol] 8.4 mg/dL Critically low 8.5-10.1 [facility] Comment on above: Performed By: #### C MP, BNP, CRP ####[facility] Xcejmwgxyn175[address] [place], [place] [address]Dr. Farhat Leal Chloride [Moles/Vol] 100 mmol/L Normal 98-[address] [facility] Comment on above: Performed By: #### C MP, BNP, CRP ####[facility] Jaoiqquysd25[address] [place] [address]Dr. Farhat Elvis CO2 [Moles/Vol] 23.7 mmol/L Normal 21.0-32.0 [facility] Comment on above: Performed By: #### C MP, BNP, CRP ####[facility] Rpodorhvfc7419 [place] [address]Dr. Farhat Elvis Creatinine [Mass/Vol] 1.70 mg/dL Critically high 0.70-1.[address] [facility] Comment on above: Performed By: #### C MP, BNP, CRP ####[facility] Ciyqvddbef[address] [place], [place] [address]Dr. Farhat Elvis EGFR-AF BURMESE 48 mL/min/1.73m2 Critically low >=[address] [facility] Comment on above: Performed By: #### C MP, BNP, CRP ####[facility] Wrhatukbpi[address] [place], [place] [address]Dr. Farhat Leal EGFR-NON AF BURMESE 39 mL/min/1.73m2 Critically low >=60 The [facility] Comment on above: Performed By: #### C MP, BNP, CRP ####[facility] Xtmdxqqetb[address] [place], [place] [address]Dr. Farhat Leal Globulin (S) [Mass/Vol] 3.6 g/dL Normal [facility] Comment on above: Performed By: #### C MP, BNP, CRP ####[facility] Qlebuuqxqv[address] [place], [place] [address]Dr. Madelynlorri Elvis Glucose [Mass/Vol] 232 mg/dL Critically high 74-106 T [facility] Comment on above: Performed By: #### C MP, BNP, CRP ####[facility] Euifwezexu[address] [place], [place] [address]Dr. Farhat Leal Potassium [Moles/Vol] 3.7 mmol/L Normal 3.5-5.[address] [facility] Comment on above: Performed By: #### C MP, BNP, CRP ####[facility] Hphmybbcoq[address] [place], [place] [address]Dr. Farhat Leal Protein [Mass/Vol] 5.0 g/dL Critically low 6.4-8.2 [facility] Comment on above: Performed By: #### C MP, BNP, CRP ####[facility] [address] [place] [address]Dr. Farhat Leal Sodium [Moles/Vol] 133 mmol/L Critically low 136-145 [facility] Comment on above: Performed By: #### C MP, BNP, CRP ####[facility] Ctlrbitgxp60[address] [place], [place] [address]Dr. Farhat Leal Urea nitrogen [Mass/Vol] 52.0 mg/dL Critically high 7.0-18.[address] [facility] Comment on above: Performed By: #### C MP, BNP, CRP ####[facility] Vzxtlapggb[address] [place], [place] [address]Dr. Farhat Leal Urea nitrogen/Creatinine [Mass ratio] 30.6 mg/mg Normal [facility] Comment on above: Performed By: #### C MP, BNP, CRP ####[facility] Vzteaxzgoy537[address] [place], [place] [address]Dr. Farhat Leal PROTIMEon 11-28-2021 INR Coag (PPP) [Relative time] 1.29 {INR} Normal [facility] Comment on above: Performed By: #### P T ####[facility] Taxvtfqxsb[address] [place], [place] [address]Dr. Farhat Leal INR GUIDELINES SEE BELOW Normal [facility] Comment on above: Result Comment: MALINA RED INR: 2.0 - 3.0 CONDITIONS NOT LISTED BELOW 2.5 - 3.5 FOR PROSTHETIC HEART VALVE REPLACEMENT 2.5 - 3.5 RECURRENT THROMBOSIS Performed By: #### P T ####[facility] Gkmzcqtvax25[address] [place], [place] [address]Dr. Farhat Leal PT Coag (PPP) [Time] 13.7 s Critically high 9.0-11.[address] [facility] Comment on above: Performed By: #### P T ####[facility] Yotsqubkqk6911[address] [place], [place] [address]Dr. Farhat Leal SED RATE WESTERGRENon 2021 SED RATE 77 mm/hr Critically high <=20 [facility] Comment on above: Performed By: #### S EDR ####[facility] Xgimrtkjma135[address] [place], [place] [address]Dr. Farhat Leal XR CHEST 2 Von 11-28-2021 XR CHEST 2 V Normal The [facility] BNPon 11-27-2021 Natriuretic peptide B (Bld) [Mass/Vol] 73997.0 pg/mL Critically high <=1,800.0 The [facility] Comment on above: Performed By: #### B FOREST ECOLOGY PROFESSOR, CMP, CRP ####[facility] Dutjncmvkk[address] [place], [place] [address]Dr. Farhat Leal CBC AUTO DIFFon 11-27-2021 BASO # 0.0 103/ul Normal 0.0-0.[address] [facility] Comment on above: Performed By: #### C BC ####[facility] Zshxmwowji5[address] [place], [place] [address]Dr. Farhat Leal Basophils/100 WBC (Bld) 0.2 % Normal 0.2-2.0 The [facility] Comment on above: Performed By: #### C BC ####[facility] Ncijaeuung[address] [place], [place] [address]Dr. Farhat Leal EO # 0.2 103/ul Normal 0.0-0.7 The [facility] Comment on above: Performed By: #### C BC ####[facility] Gvstzeercj354[address] [place], [place] [address]Dr. Farhat Leal Eosinophils/100 WBC (Bld) 1.9 % Normal 0.9-7.0 The [facility] Comment on above: Performed By: #### C BC ####[facility] Vbjpxqchcc8464[address] [place], [place] [address]Dr. Farhat Leal Erythrocyte distribution width (RBC) [Ratio] 13.9 % Normal 11.0-15.0 The [facility] Comment on above: Performed By: #### C BC ####[facility] Isjzrdxqvd739[address] [place], [place] [address]Dr. Farhat Leal Hematocrit (Bld) [Volume fraction] 28.7 % Critically low 42.0-54.[address] [facility] Comment on above: Performed By: #### C BC ####[facility] [address] [place] [address]DrSkylar Leal Hemoglobin (Bld) [Mass/Vol] 9.3 g/dL Critically low 14.0-18.[address] [facility] Comment on above: Performed By: #### C BC ####[facility] [address] [place] [address]DrSkylar Leal IG # 0.14 10e3/ul Critically high 0.00-0.03 [facility] Comment on above: Performed By: #### C BC ####[facility] D[address]oxpud[address] [place] [address]DrSkylar Leal IG % 1.2 % Critically high 0.0-0.5 [facility] Comment on above: Performed By: #### C BC ####[facility] Frpipwiwtj211[address] [place], [place] [address]DrSkylar Lela LYMPH # 1.1 103/ul Critically low 1.2-3.8 [facility] Comment on above: Performed By: #### C BC ####[facility] Quzkdshtro8848[address] [place], [place] [address]DrSkylar Leal Lymphocytes/100 WBC (Bld) 9.4 % Critically low 20.5-60.[address] [facility] Comment on above: Performed By: #### C BC ####[facility] [address] [place] [address]DrSkylar Leal MANUAL DIFF REQ NO Normal [facility] Comment on above: Performed By: #### C BC ####[facility] [address] [place] [address]DrSkylar Leal MCH (RBC) [Entitic mass] 29.7 pg Normal 25.9-34.[address] [facility] Comment on above: Performed By: #### C BC ####[facility] [address]zd[address] [place] [address]DrSkylar Leal MCHC (RBC) [Mass/Vol] 32.4 g/dL Normal 29.9-35.2 The [facility] Comment on above: Performed By: #### C BC ####[facility] [address]xe[address] [place] [address]DrSkylar Leal MCV (RBC) [Entitic vol] 91.7 fL Normal 80.0-94.0 The [facility] Comment on above: Performed By: #### C BC ####[facility] Kczqatwylv8[address] [place], [place] [address]DrSkylar Leal MONO # 1.1 103/ul Critically high 0.3-0.8 [facility] Comment on above: Performed By: #### C BC ####[facility] Ecpiuocczz[address] [place], [place] [address]DrSkylar Leal Monocytes/100 WBC (Bld) 9.7 % Normal 1.7-12.0 The [facility] Comment on above: Performed By: #### C BC ####[facility] Celqhujcfz6913[address] [place], [place] [address]Dr. Farhat Leal NEUT # 9.2 103/ul Critically high 1.4-6.5 [facility] Comment on above: Performed By: #### C BC ####[facility] Qitgxacbix197[address] [place], [place] [address]DrSkylar Leal Neutrophils/100 WBC (Bld) 77.6 % Critically high 43.0-75.0 The [facility] Comment on above: Performed By: #### C BC ####[facility] Xxictxajqj[address] [place], [place] [address]DrSkylar Leal Platelet mean volume (Bld) [Entitic vol] 9.5 fL Normal 9.5-13.5 The [facility] Comment on above: Performed By: #### C BC ####[facility] Rkppnslfay[address] [place], [place] [address]DrSkylar Leal PLT 375 103/ul Normal 150-450 The [facility] Comment on above: Performed By: #### C BC ####[facility] Ujusxkinjy[address] [place], [place] [address]DrSkylar Leal RBC 3.13 106/ul Critically low 4.70-6.10 [facility] Comment on above: Performed By: #### C BC ####[facility] Obs[address]mqjz[address] [place] [address]Dr. Farhat Leal WBC 11.8 103/ul Critically high 4.0-11.0 [facility] Comment on above: Performed By: #### C BC ####[facility] An[address]in[address] [place] [address]Dr. Madelynlorri Elvis CRPon 11-27-2021 CRP 24.5 mg/dL Critically high <=1.0 [facility] Comment on above: Performed By: #### B FOREST ECOLOGY PROFESSOR, CMP, CRP ####[facility] Avoodvquas[address] [place], [place] [address]Dr. Madelynlorri Lael CULTURE OTHERon 11-27-2021 CULTURE OTHER Normal [facility] Comment on above: Performed By: #### O THCX ####[facility] Arspofovjs230[address] [place], [place] [address]Dr. Madelynlorri Leal CULTURE OTHER Normal [facility] Comment on above: Performed By: #### O THCX ####[facility] Enrsycprop7840[address] [place], [place] [address]Dr. Farhat Leal CULTURE WOUNDon 11-27-2021 CULTURE WOUND Normal [facility] Comment on above: Performed By: #### W OUNDCX ####[facility] Miknbbclmk15[address] [place], [place] [address]Dr. Farhat Leal POINT OF CARE GLUCOSEon 11-15 Glucose [Mass/Vol] 147 mg/dL Critically high 74-106 [facility] Comment on above: Performed By: #### P OCGLUC ####[facility] Uxlzxajvod[address] [place], [place] [address]Dr. Farhat Leal PROF 14(COMP METB)on 022 Albumin [Mass/Vol] 1.4 g/dL Critically low 3.4-5.0 [facility] Comment on above: Performed By: #### B FOREST ECOLOGY PROFESSOR, CMP, CRP ####[facility] Afghqmboec[address] [place], [place] [address]Dr. Farhat Leal Albumin/Globulin [Mass ratio] 0.4 {ratio} Normal [facility] Comment on above: Performed By: #### B FOREST ECOLOGY PROFESSOR, CMP, CRP ####[facility] Znedtwfzlf8[address] [place], [place] [address]Dr. Farhat Leal ALP [Catalytic activity/Vol] 82 U/L Normal 46-[address] [facility] Comment on above: Performed By: #### B FOREST ECOLOGY PROFESSOR, CMP, CRP ####[facility] Gumsupwzdq175[address] [place], [place] [address]Dr. Farhat Leal ALT [Catalytic activity/Vol] 22 U/L Normal 16-[address] [facility] Comment on above: Performed By: #### B FOREST ECOLOGY PROFESSOR, CMP, CRP ####[facility] Wrsiresvno7[address] [place], [place] [address]Dr. Farhat Leal Anion gap [Moles/Vol] 14.2 mmol/L Normal [facility] Comment on above: Performed By: #### B FOREST ECOLOGY PROFESSOR, CMP, CRP ####[facility] Ofsnxukqdb24[address] [place], [place] [address]Dr. Farhat Leal AST [Catalytic activity/Vol] 35 U/L Normal 15-[address] [facility] Comment on above: Performed By: #### B FOREST ECOLOGY PROFESSOR, CMP, CRP ####[facility] Tiwzqythcp[address] [place], [place] [address]Dr. Farhat Elvis Bilirubin [Mass/Vol] 0.7 mg/dL Normal 0.2-1.[address] [facility] Comment on above: Performed By: #### B FOREST ECOLOGY PROFESSOR, CMP, CRP ####[facility] Siwyuimkuh[address] [place], [place] [address]Dr. Farhat Elvis Calcium [Mass/Vol] 8.2 mg/dL Critically low 8.5-10.1 [facility] Comment on above: Performed By: #### B FOREST ECOLOGY PROFESSOR, CMP, CRP ####[facility] Unxijimlru[address]38[address] [place], [place] [address]Dr. Farhat Leal Chloride [Moles/Vol] 99 mmol/L Normal 98-[address] [facility] Comment on above: Performed By: #### B FOREST ECOLOGY PROFESSOR, CMP, CRP ####[facility] [address] [place] [address]Dr. Farhat Leal CO2 [Moles/Vol] 22.6 mmol/L Normal 21.0-32.0 [facility] Comment on above: Performed By: #### B FOREST ECOLOGY PROFESSOR, CMP, CRP ####[facility] [address]vhf[address] [place] [address]Dr. Farhat Leal Creatinine [Mass/Vol] 1.73 mg/dL Critically high 0.70-1.[address] [facility] Comment on above: Performed By: #### B FOREST ECOLOGY PROFESSOR, CMP, CRP ####[facility] [address]ifum[address] [place] [address]Dr. Farhat Elvis EGFR-AF BURMESE 47 mL/min/1.73m2 Critically low >=[address] [facility] Comment on above: Performed By: #### B FOREST ECOLOGY PROFESSOR, CMP, CRP ####[facility] Yhiqfomock[address] [place], [place] [address]Dr. Farhat Leal EGFR-NON AF BURMESE 38 mL/min/1.73m2 Critically low >=[address] [facility] Comment on above: Performed By: #### B FOREST ECOLOGY PROFESSOR, CMP, CRP ####[facility] Eiihvnaqks[address] [place], [place] [address]Dr. Farhat Leal Globulin (S) [Mass/Vol] 3.7 g/dL Normal [facility] Comment on above: Performed By: #### B FOREST ECOLOGY PROFESSOR, CMP, CRP ####[facility] [address]fr[address] [place] [address]Dr. Madelynlorri Elvis Glucose [Mass/Vol] 220 mg/dL Critically high 74-106 [facility] Comment on above: Performed By: #### B FOREST ECOLOGY PROFESSOR, CMP, CRP ####[facility] Uoggceomqf[address] [place], [place] [address]Dr. Farhat Leal Potassium [Moles/Vol] 3.8 mmol/L Normal 3.5-5.[address] [facility] Comment on above: Performed By: #### B FOREST ECOLOGY PROFESSOR, CMP, CRP ####[facility] Wufqclkajf[address] [place], [place] [address]Dr. Madelynlorri Leal Protein [Mass/Vol] 5.1 g/dL Critically low 6.4-8.2 [facility] Comment on above: Performed By: #### B FOREST ECOLOGY PROFESSOR, CMP, CRP ####[facility] Xjfpkuwhin[address] [place] [address]Dr. Farhat Leal Sodium [Moles/Vol] 132 mmol/L Critically low 136-145 [facility] Comment on above: Performed By: #### B FOREST ECOLOGY PROFESSOR, CMP, CRP ####[facility] Gqiggfiwif240[address] [place], [place] [address]Dr. Farhat Leal Urea nitrogen [Mass/Vol] 49.0 mg/dL Critically high 7.0-18.[address] [facility] Comment on above: Performed By: #### B FOREST ECOLOGY PROFESSOR, CMP, CRP ####[facility] Onussqzbhp782[address] [place], [place] [address]Dr. Farhat Leal Urea nitrogen/Creatinine [Mass ratio] 28.3 mg/mg Normal [facility] Comment on above: Performed By: #### B FOREST ECOLOGY PROFESSOR, CMP, CRP ####[facility] Tanopprjmd[address] [place], [place] [address]Dr. Farhat Leal PROTIMEon 11-27-2021 INR Coag (PPP) [Relative time] 1.25 {INR} Normal [facility] Comment on above: Performed By: #### P T ####[facility] Lcvesasrkk[address] [place], [place] [address]Dr. Farhat Leal INR GUIDELINES SEE BELOW Normal [facility] Comment on above: Result Comment: MALINA RED INR: 2.0 - 3.0 CONDITIONS NOT LISTED BELOW 2.5 - 3.5 FOR PROSTHETIC HEART VALVE REPLACEMENT 2.5 - 3.5 RECURRENT THROMBOSIS Performed By: #### P T ####[facility] Nirtanwpei68[address] [place], [place] [address]Dr. Farhat Leal PT Coag (PPP) [Time] 13.3 s Critically high 9.0-11.[address] [facility] Comment on above: Performed By: #### P T ####[facility] Jijfhgtpoz234[address] [place], [place] [address]Dr. Farhat Leal SED RATE ROCHESTERERGRENon 2021 SED RATE 60 mm/hr Critically high <=20 [facility] Comment on above: Performed By: #### S EDR ####[facility] Wkyrycmicp[address] [place], [place] [address]Dr. Farhat Leal VANCOMYCIN TROUGHon 11-28-19 22 VANCOMYCIN TROUGH 21.2 ug/ml Critically high 5.0-20.0 Th e [facility] Comment on above: Performed By: #### V ANCT ####[facility] Dufmdgkeda[address] [place], [place] [address]Dr. Farhat Leal XR CHEST 1 Von 11-27-2021 XR CHEST 1 V Normal [facility] BNPon 11-26-2021 Natriuretic peptide B (Bld) [Mass/Vol] 92454.0 pg/mL Critically high <=1,800.[address] [facility] Comment on above: Performed By: #### B FOREST ECOLOGY PROFESSOR, CRP, CMP ####[facility] Tgyhexomne[address] [place], [place] [address]Dr. Farhat Leal CBC AUTO DIFFon 11-26-2021 BASO # 0.0 103/ul Normal 0.0-0.[address] [facility] Comment on above: Performed By: #### C BC ####[facility] Xbcaiuzmfm[address] [place], [place] [address]Dr. Farhat Leal Basophils/100 WBC (Bld) 0.2 % Normal 0.2-2.0 The [facility] Comment on above: Performed By: #### C BC ####[facility] Qjzrmqjttb[address] [place], [place] [address]Dr. Farhat Leal EO # 0.0 103/ul Normal 0.0-0.7 The [facility] Comment on above: Performed By: #### C BC ####[facility] Zgvaujulfd[address] [place], [place] [address]Dr. Farhat Leal Eosinophils/100 WBC (Bld) 0.3 % Critically low 0.9-7.0 The [facility] Comment on above: Performed By: #### C BC ####[facility] Ilmpzfwcrk[address]16[address] [place], [place] [address]Dr. Farhat Leal Erythrocyte distribution width (RBC) [Ratio] 13.9 % Normal 11.0-15.[address] [facility] Comment on above: Performed By: #### C BC ####[facility] [address]ecvo[address] [place] [address]Dr. Madelynlorri Elvis Hematocrit (Bld) [Volume fraction] 27.3 % Critically low 42.0-54.0 The [facility] Comment on above: Performed By: #### C BC ####[facility] Yxhztwpjst[address] [place], [place] [address]Dr. Farhat Leal Hemoglobin (Bld) [Mass/Vol] 8.8 g/dL Critically low 14.0-18.[address] [facility] Comment on above: Performed By: #### C BC ####[facility] Esvgshkiov3924[address] [place], [place] [address]Dr. Farhat Leal IG # 0.17 10e3/ul Critically high 0.00-0.03 [facility] Comment on above: Performed By: #### C BC ####[facility] Akeyolwmhs[address] [place], [place] [address]Dr. Farhat Leal IG % 1.2 % Critically high 0.0-0.5 [facility] Comment on above: Performed By: #### C BC ####[facility] Dxcqgjojpu409[address] [place], [place] [address]DrSkylar Leal LYMPH # 0.7 103/ul Critically low 1.2-3.8 [facility] Comment on above: Performed By: #### C BC ####[facility] Ylcgkeetbf[address] [place], [place] [address]DrSkylar Leal Lymphocytes/100 WBC (Bld) 4.8 % Critically low 20.5-60.0 The [facility] Comment on above: Performed By: #### C BC ####[facility] Xdzpaklmtq[address] [place], [place] [address]DrSkylar Leal MANUAL DIFF REQ NO Normal [facility] Comment on above: Performed By: #### C BC ####[facility] Yelmympbda[address] [place], [place] [address]DrSkylar Leal MCH (RBC) [Entitic mass] 29.9 pg Normal 25.9-34.0 The [facility] Comment on above: Performed By: #### C BC ####[facility] [address]ryc[address] [place] [address]Dr. Farhat Leal MCHC (RBC) [Mass/Vol] 32.2 g/dL Normal 29.9-35.2 The [facility] Comment on above: Performed By: #### C BC ####[facility] Fmveagtsxi[address] [place], [place] [address]Dr. Farhat Leal MCV (RBC) [Entitic vol] 92.9 fL Normal 80.0-94.0 The [facility] Comment on above: Performed By: #### C BC ####[facility] Acjfakglzo397[address] [place], [place] [address]Dr. Farhat Elvis MONO # 1.3 103/ul Critically high 0.3-0.8 [facility] Comment on above: Performed By: #### C BC ####[facility] Ruarkboyhm[address] [place], [place] [address]Dr. Madelynlorri Leal Monocytes/100 WBC (Bld) 9.6 % Normal 1.7-12.0 The [facility] Comment on above: Performed By: #### C BC ####[facility] Babwmuzcgn[address] [place], [place] [address]Dr. Farhat Leal NEUT # 11.4 103/ul Critically high 1.4-6.5 The [facility] Comment on above: Performed By: #### C BC ####[facility] Ftqesdlxfk[address] [place], [place] [address]Dr. Madelynlorri Leal Neutrophils/100 WBC (Bld) 83.9 % Critically high 43.0-75.0 The [facility] Comment on above: Performed By: #### C BC ####[facility] Moahrmbmfb954[address] [place], [place] [address]Dr. Farhat Elvis Platelet mean volume (Bld) [Entitic vol] 9.6 fL Normal 9.5-13.5 The [facility] Comment on above: Performed By: #### C BC ####[facility] [address] [place] [id number]. Farhat Leal PLT 395 103/ul Normal 150-450 The [facility] Comment on above: Performed By: #### C BC ####[facility] [address]nmvhmyskc[address] [place] [address]Dr. Farhat Leal RBC 2.94 106/ul Critically low 4.70-6.10 [facility] Comment on above: Performed By: #### C BC ####[facility] [address]frhvy[address] [place] [address]Dr. Farhat Leal WBC 13.6 103/ul Critically high 4.0-11.0 The [facility] Comment on above: Performed By: #### C BC ####[facility] [address]xywrsjf[address] [place], [place] [address]Dr. Farhat Leal CRPon 11-26-2021 CRP [Mass/Vol] mg/L Critically high <=1.0 [facility] Comment on above: Performed By: #### B FOREST ECOLOGY PROFESSOR, CRP, CMP ####[facility] Nkltxzsjze[address] [place], [place] [address]Dr. Farhat Elvis PROF 14(COMP METB)on 022 Albumin [Mass/Vol] 1.5 g/dL Critically low 3.4-5.0 [facility] Comment on above: Performed By: #### B FOREST ECOLOGY PROFESSOR, CRP, CMP ####[facility] [address]utrg[address] [place] [address]Dr. Farhat Leal Albumin/Globulin [Mass ratio] 0.4 {ratio} Normal [facility] Comment on above: Performed By: #### B FOREST ECOLOGY PROFESSOR, CRP, CMP ####[facility] [address]ky[address] [place] [address]Dr. Farhat Leal ALP [Catalytic activity/Vol] 88 U/L Normal 46-116 The [facility] Comment on above: Performed By: #### B FOREST ECOLOGY PROFESSOR, CRP, CMP ####[facility] [address]csbipbhxz[address] [place] [address]Dr. Farhat Leal ALT [Catalytic activity/Vol] 29 U/L Normal 16-63 The [facility] Comment on above: Performed By: #### B FOREST ECOLOGY PROFESSOR, CRP, CMP ####[facility] [address]zb[address] [place] [address]Dr. Farhat Leal Anion gap [Moles/Vol] 13.3 mmol/L Normal [facility] Comment on above: Performed By: #### B FOREST ECOLOGY PROFESSOR, CRP, CMP ####[facility] O[address]qpe[address]zn[address] [place] [address]Dr. Farhat Leal AST [Catalytic activity/Vol] 32 U/L Normal 15-[address] [facility] Comment on above: Performed By: #### B FOREST ECOLOGY PROFESSOR, CRP, CMP ####[facility] Wh[address]bcvtbs[address] [place] [address]Dr. Farhat Leal Bilirubin [Mass/Vol] 0.6 mg/dL Normal 0.2-1.[address] [facility] Comment on above: Performed By: #### B FOREST ECOLOGY PROFESSOR, CRP, CMP ####[facility] Noattwbbwh[address] [place], [place] [address]Dr. Farhat Leal Calcium [Mass/Vol] 8.0 mg/dL Critically low 8.5-10.1 [facility] Comment on above: Performed By: #### B FOREST ECOLOGY PROFESSOR, CRP, CMP ####[facility] Qhxmmlcokr[address] [place], [place] [address]Dr. Farhat Leal Chloride [Moles/Vol] 98 mmol/L Normal 98-[address] [facility] Comment on above: Performed By: #### B FOREST ECOLOGY PROFESSOR, CRP, CMP ####[facility] Xxoxaummff[address] [place] [address]Dr. Farhat Leal CO2 [Moles/Vol] 23.7 mmol/L Normal 21.0-32.0 [facility] Comment on above: Performed By: #### B FOREST ECOLOGY PROFESSOR, CRP, CMP ####[facility] Hqeughbhhy[address] [place], [place] [address]Dr. Farhat Leal Creatinine [Mass/Vol] 2.08 mg/dL Critically high 0.70-1.[address] [facility] Comment on above: Performed By: #### B FOREST ECOLOGY PROFESSOR, CRP, CMP ####[facility] Esdgytsmic[address] [place], [place] [address]Dr. Farhat Leal EGFR-AF BURMESE 38 mL/min/1.73m2 Critically low >=[address] [facility] Comment on above: Performed By: #### B FOREST ECOLOGY PROFESSOR, CRP, CMP ####[facility] [address]ebmarzegy[address] [place] [address]Dr. Farhat Leal EGFR-NON AF BURMESE 31 mL/min/1.73m2 Critically low >=[address] [facility] Comment on above: Performed By: #### B FOREST ECOLOGY PROFESSOR, CRP, CMP ####[facility] Kidazeqqtk[address] [place] [address]Dr. Farhat Leal Globulin (S) [Mass/Vol] 3.7 g/dL Normal [facility] Comment on above: Performed By: #### B FOREST ECOLOGY PROFESSOR, CRP, CMP ####[facility] Qcvkeyrbqc[address] [place], [place] [address]Dr. Farhat Leal Glucose [Mass/Vol] 315 mg/dL Critically high 74-106 [facility] Comment on above: Performed By: #### B FOREST ECOLOGY PROFESSOR, CRP, CMP ####[facility] Fvagqcazhu8[address] [place], [place] [address]Dr. Farhat Leal Potassium [Moles/Vol] 4.0 mmol/L Normal 3.5-5.[address] [facility] Comment on above: Performed By: #### B FOREST ECOLOGY PROFESSOR, CRP, CMP ####[facility] Eykgmcvshr2226[address] [place], [place] [address]Dr. Farhat Leal Protein [Mass/Vol] 5.2 g/dL Critically low 6.4-8.2 [facility] Comment on above: Performed By: #### B FOREST ECOLOGY PROFESSOR, CRP, CMP ####[facility] Ajsgfkxafh25[address] [place], [place] [address]Dr. Farhat Leal Sodium [Moles/Vol] 131 mmol/L Critically low 136-145 [facility] Comment on above: Performed By: #### B FOREST ECOLOGY PROFESSOR, CRP, CMP ####[facility] Vljpwwrayv8[address] [place] [address]Dr. Farhat Leal Urea nitrogen [Mass/Vol] 50.0 mg/dL Critically high 7.0-18.[address] [facility] Comment on above: Performed By: #### B FOREST ECOLOGY PROFESSOR, CRP, CMP ####[facility] Pzhrxlykqo[address] [place] [address]Dr. Farhat Leal Urea nitrogen/Creatinine [Mass ratio] 24.0 mg/mg Normal The [facility] Comment on above: Performed By: #### B FOREST ECOLOGY PROFESSOR, CRP, CMP ####[facility] Uycoltbbry[address] [place] [address]Dr. Farhat Leal PROTIMEon 11-26-2021 INR Coag (PPP) [Relative time] 1.31 {INR} Normal The [facility] Comment on above: Performed By: #### P T ####[facility] Yqcouziizu314[address] [place], [place] [address]Dr. Farhat Leal INR GUIDELINES SEE BELOW Normal The [facility] Comment on above: Result Comment: MALINA RED INR: 2.0 - 3.0 CONDITIONS NOT LISTED BELOW 2.5 - 3.5 FOR PROSTHETIC HEART VALVE REPLACEMENT 2.5 - 3.5 RECURRENT THROMBOSIS Performed By: #### P T ####[facility] Hrdettgesa[address] [place], [place] [address]Dr. Farhat Leal PT Coag (PPP) [Time] 13.9 s Critically high 9.0-11.6 [facility] Comment on above: Performed By: #### P T ####[facility] Lywcnmpjod424[address] [place], [place] [address]Dr. Farhat Leal [facility] SED RATE 87 mm/hr Critically high <=20 [facility] Comment on above: Performed By: #### S EDR ####[facility] Zuzsjkfnfw04[address] [place], [place] [address]Dr. Farhat Leal BNPon 11-25-2021 Natriuretic peptide B (Bld) [Mass/Vol] 35778.0 pg/mL Critically high <=1,800.0 [facility] Comment on above: Performed By: #### C MP, BNP, CRP ####[facility] Symjrpxvov89[address] [place], [place] [address]Dr. Farhat Leal CBC AUTO DIFFon 11-25-2021 BASO # 0.0 103/ul Normal 0.0-0.1 [facility] Comment on above: Performed By: #### C BC ####[facility] Joghttpgqn33[address] [place] [address]Dr. Farhat Leal Basophils/100 WBC (Bld) 0.4 % Normal 0.2-2.[address] [facility] Comment on above: Performed By: #### C BC ####[facility] Rbaysolahd350[address] [place] [address]Dr. Farhat Leal EO # 0.1 103/ul Normal 0.0-0.7 [facility] Comment on above: Performed By: #### C BC ####[facility] Bczboocurf30[address] [place], [place] [address]Dr. Farhat Leal Eosinophils/100 WBC (Bld) 1.2 % Normal 0.9-7.0 [facility] Comment on above: Performed By: #### C BC ####[facility] Jmefyblorn[address] [place], [place] [address]Dr. Farhat Leal Erythrocyte distribution width (RBC) [Ratio] 13.7 % Normal 11.0-15.[address] [facility] Comment on above: Performed By: #### C BC ####[facility] Erhvfqhtwf000[address] [place], [place] [address]Dr. Farhat Leal Hematocrit (Bld) [Volume fraction] 29.6 % Critically low 42.0-54.[address] [facility] Comment on above: Performed By: #### C BC ####[facility] Njluzpzcsj[address] [place], [place] [address]Dr. Farhat Leal Hemoglobin (Bld) [Mass/Vol] 9.3 g/dL Critically low 14.0-18.0 [facility] Comment on above: Performed By: #### C BC ####[facility] Yzuhftpynn[address] [place], [place] [address]Dr. Farhat Leal IG # 0.15 10e3/ul Critically high 0.00-0.03 [facility] Comment on above: Performed By: #### C BC ####[facility] Lxexmfqgsk[address] [place], [place] [address]Dr. Farhat Leal IG % 1.4 % Critically high 0.0-0.5 [facility] Comment on above: Performed By: #### C BC ####[facility] Xjfevgjczh[address] [place] [address]Dr. Farhat Leal LYMPH # 0.8 103/ul Critically low 1.2-3.8 [facility] Comment on above: Performed By: #### C BC ####[facility] Lwzxxnfvup4[address] [place] [address]Dr. Farhat Leal Lymphocytes/100 WBC (Bld) 7.3 % Critically low 20.5-60.[address] [facility] Comment on above: Performed By: #### C BC ####[facility] Xbzhfivkgz4[address] [place], [place] [address]DrSkylar Leal MANUAL DIFF REQ NO Normal [facility] Comment on above: Performed By: #### C BC ####[facility] Htitaguscg993[address] [place], [place] [address]Dr. Farhat Leal MCH (RBC) [Entitic mass] 29.3 pg Normal 25.9-34.[address] [facility] Comment on above: Performed By: #### C BC ####[facility] Bjuuljxseu1326[address] [place], [place] [address]Dr. Farhat Leal MCHC (RBC) [Mass/Vol] 31.4 g/dL Normal 29.9-35.2 [facility] Comment on above: Performed By: #### C BC ####[facility] Izxpqkboyv8428[address] [place], [place] [address]Dr. Farhat Leal MCV (RBC) [Entitic vol] 93.4 fL Normal 80.0-94.0 [facility] Comment on above: Performed By: #### C BC ####[facility] Ycpbokagxm52[address] [place], [place] [address]DrSkylar Leal MONO # 1.3 103/ul Critically high 0.3-0.8 [facility] Comment on above: Performed By: #### C BC ####[facility] Djzpquqtbt[address] [place] [address]Dr. Farhat Leal Monocytes/100 WBC (Bld) 12.3 % Critically high 1.7-12.0 The [facility] Comment on above: Performed By: #### C BC ####[facility] Rtjcpzqfiz[address] [place] [address]Dr. Farhat Leal NEUT # 8.4 103/ul Critically high 1.4-6.5 [facility] Comment on above: Performed By: #### C BC ####[facility] Erolkbncix18[address] [place] [address]DrSkylar Leal Neutrophils/100 WBC (Bld) 77.4 % Critically high 43.0-75.0 The [facility] Comment on above: Performed By: #### C BC ####[facility] Xrgbhhrhws[address] [place], [place] [address]Dr. Farhat Leal Platelet mean volume (Bld) [Entitic vol] 9.8 fL Normal 9.5-13.5 [facility] Comment on above: Performed By: #### C BC ####[facility] Fofvqubzdo1327[address] [place], [place] [address]Dr. Farhat Leal PLT 390 103/ul Normal 150-450 [facility] Comment on above: Performed By: #### C BC ####[facility] Laczhnsobd[address] [place], [place] [address]Dr. Farhat Leal RBC 3.17 106/ul Critically low 4.70-6.10 [facility] Comment on above: Performed By: #### C BC ####[facility] Iuqqunictf[address] [place], [place] [address]DrSkylar Leal WBC 10.9 103/ul Normal 4.0-11.0 The [facility] Comment on above: Performed By: #### C BC ####[facility] Vhnxdylgvg[address] [place], [place] [address]DrSkylar Leal CRPon 11-25-2021 CRP 27.2 mg/dL Critically high <=1.0 [facility] Comment on above: Performed By: #### C MP, BNP, CRP ####[facility] Mfqawjitru[address] [place], [place] [address]Dr. Farhat Leal PROF 14(COMP METB)on 022 Albumin [Mass/Vol] 1.5 g/dL Critically low 3.4-5.0 [facility] Comment on above: Performed By: #### C MP, BNP, CRP ####[facility] Dbuhiuiqcm9[address] [place] [address]Dr. Fahrat Leal Albumin/Globulin [Mass ratio] 0.4 {ratio} Normal [facility] Comment on above: Performed By: #### C MP, BNP, CRP ####[facility] Hssvzslucd7[address] [place] [address]Dr. Farhat Leal ALP [Catalytic activity/Vol] 86 U/L Normal 46-[address] [facility] Comment on above: Performed By: #### C MP, BNP, CRP ####[facility] Rvxnvlqjqc9227 [place] [address]Dr. Farhat Leal ALT [Catalytic activity/Vol] 34 U/L Normal 16-[address] [facility] Comment on above: Performed By: #### C MP, BNP, CRP ####[facility] Jexzhtkrqb0[address] [place] [address]Dr. Farhat Leal Anion gap [Moles/Vol] 17.8 mmol/L Normal [facility] Comment on above: Performed By: #### C MP, BNP, CRP ####[facility] Bwxwmshygf96[address] [place] [address]Dr. Farhat Leal AST [Catalytic activity/Vol] 48 U/L Critically high 15-[address] [facility] Comment on above: Performed By: #### C MP, BNP, CRP ####[facility] Wwtfduixap35[address] [place] [address]Dr. Farhat Leal Bilirubin [Mass/Vol] 0.8 mg/dL Normal 0.2-1.[address] [facility] Comment on above: Performed By: #### C MP, BNP, CRP ####[facility] Ulndogtojy5[address] [place] [address]Dr. Farhat Leal Calcium [Mass/Vol] 8.3 mg/dL Critically low 8.5-10.1 [facility] Comment on above: Performed By: #### C MP, BNP, CRP ####[facility] Loleygcrau56[address] [place] [address]Dr. Farhat Leal Chloride [Moles/Vol] 97 mmol/L Critically low 98-[address] [facility] Comment on above: Performed By: #### C MP, BNP, CRP ####[facility] Rhmprvrulr5[address] [place] [address]Dr. Farhat Leal CO2 [Moles/Vol] 23.0 mmol/L Normal 21.0-32.0 [facility] Comment on above: Performed By: #### C MP, BNP, CRP ####[facility] Ddmkrxozut8720[address] [place], [place] [address]Dr. Madelynlorri Elvis Creatinine [Mass/Vol] 1.68 mg/dL Critically high 0.70-1.[address] [facility] Comment on above: Performed By: #### C MP, BNP, CRP ####[facility] Bacoprcive60[address] [place], [place] [address]Dr. Madelynlorri Elvis EGFR-AF BURMESE 48 mL/min/1.73m2 Critically low >=[address] [facility] Comment on above: Performed By: #### C MP, BNP, CRP ####[facility] Geaoemznfh239[address] [place], [place] [address]Dr. Farhat Elvis EGFR-NON AF BURMESE 40 mL/min/1.73m2 Critically low >=[address] [facility] Comment on above: Performed By: #### C MP, BNP, CRP ####[facility] Zcpakbgide8211[address] [place], [place] [address]Dr. Farhat Elvis Globulin (S) [Mass/Vol] 3.9 g/dL Normal [facility] Comment on above: Performed By: #### C MP, BNP, CRP ####[facility] Rfdebdhjzj38[address] [place], [place] [address]Dr. Farhat Leal Glucose [Mass/Vol] 282 mg/dL Critically high 74-106 T [facility] Comment on above: Performed By: #### C MP, BNP, CRP ####[facility] Cujornbsjo6069[address] [place], [place] [address]Dr. Farhat Leal Potassium [Moles/Vol] 4.8 mmol/L Normal 3.5-5.[address] [facility] Comment on above: Performed By: #### C MP, BNP, CRP ####[facility] Kfqvswegrd60[address] [place], [place] [address]Dr. Farhat Leal Protein [Mass/Vol] 5.4 g/dL Critically low 6.4-8.2 [facility] Comment on above: Performed By: #### C MP, BNP, CRP ####[facility] Dbytbhmajv216[address] [place], [place] [address]Dr. Farhat Leal Sodium [Moles/Vol] 133 mmol/L Critically low 136-145 [facility] Comment on above: Performed By: #### C MP, BNP, CRP ####[facility] Cpmjwrymnc3716[address] [place], [place] [address]Dr. Farhat Leal Urea nitrogen [Mass/Vol] 40.0 mg/dL Critically high 7.0-18.[address] [facility] Comment on above: Performed By: #### C MP, BNP, CRP ####[facility] Jcodhlubgh[address]67[address] [place], [place] [address]Dr. Farhat Leal Urea nitrogen/Creatinine [Mass ratio] 23.8 mg/mg Normal [facility] Comment on above: Performed By: #### C MP, BNP, CRP ####[facility] Zxxxwvnekj548[address] [place], [place] [address]Dr. Farhat Leal PROTIMEon 11-25-2021 INR Coag (PPP) [Relative time] 1.48 {INR} Normal [facility] Comment on above: Performed By: #### P T ####[facility] Yniwpgespx[address]64[address] [place], [place] [address]Dr. Farhat Leal INR GUIDELINES SEE BELOW Normal [facility] Comment on above: Result Comment: MALINA RED INR: 2.0 - 3.0 CONDITIONS NOT LISTED BELOW 2.5 - 3.5 FOR PROSTHETIC HEART VALVE REPLACEMENT 2.5 - 3.5 RECURRENT THROMBOSIS Performed By: #### P T ####[facility] Vtzxllrwwz120[address] [place], [place] [address]Dr. Farhat Leal PT Coag (PPP) [Time] 15.6 s Critically high 9.0-11.6 The [facility] Comment on above: Performed By: #### P T ####[facility] Qgsaxdgtcg955[address] [place], [place] [address]Dr. Farhat Leal SED RATE WESTERGRENon 2021 SED RATE 76 mm/hr Critically high <=20 [facility] Comment on above: Performed By: #### S EDR ####[facility] Ptcijrdljm8[address] [place], [place] [address]Dr. Farhat Leal BNPon 11-24-2021 Natriuretic peptide B (Bld) [Mass/Vol] 33199.0 pg/mL Critically high <=1,800.0 The [facility] Comment on above: Performed By: #### B FOREST ECOLOGY PROFESSOR, CMP, CRP ####[facility] Rxylxniafj0136[address] [place], [place] [address]Dr. Farhat Leal CBC AUTO DIFFon 11-24-2021 BASO # 0.0 103/ul Normal 0.0-0.[address] [facility] Comment on above: Performed By: #### C BC ####[facility] Tsdswdbxzg4232[address] [place], [place] [address]Dr. Madelynlorri Leal Basophils/100 WBC (Bld) 0.3 % Normal 0.2-2.[address] [facility] Comment on above: Performed By: #### C BC ####[facility] Shjlxxkffh[address] [place], [place] [address]Dr. Farhat Leal EO # 0.2 103/ul Normal 0.0-0.7 [facility] Comment on above: Performed By: #### C BC ####[facility] Xxlggahrvk[address]20[address] [place], [place] [address]Dr. Madelynlorri Leal Eosinophils/100 WBC (Bld) 1.2 % Normal 0.9-7.0 [facility] Comment on above: Performed By: #### C BC ####[facility] Anddaiwbuo020[address] [place], [place] [address]Dr. Farhat Leal Erythrocyte distribution width (RBC) [Ratio] 13.5 % Normal 11.0-15.0 [facility] Comment on above: Performed By: #### C BC ####[facility] Nkujhdhuor[address] [place] [address]Dr. Farhat Leal Hematocrit (Bld) [Volume fraction] 31.1 % Critically low 42.0-54.[address] [facility] Comment on above: Performed By: #### C BC ####[facility] Ypcilkkopb36[address] [place] [address]Dr. Farhat Leal Hemoglobin (Bld) [Mass/Vol] 10.0 g/dL Critically low 14.0-18.[address] [facility] Comment on above: Performed By: #### C BC ####[facility] Noqmjrpmnc354[address] [place], [place] [address]Dr. Farhat Leal IG # 0.13 10e3/ul Critically high 0.00-0.03 [facility] Comment on above: Performed By: #### C BC ####[facility] Tjpluwqivi[address] [place], [place] [address]DrSkylar Leal IG % 1.0 % Critically high 0.0-0.5 [facility] Comment on above: Performed By: #### C BC ####[facility] Lcradnfzwa[address] [place], [place] [address]DrSkylar Leal LYMPH # 0.7 103/ul Critically low 1.2-3.8 [facility] Comment on above: Performed By: #### C BC ####[facility] Yonflklcol[address] [place], [place] [address]DrSkylar Leal Lymphocytes/100 WBC (Bld) 4.9 % Critically low 20.5-60.0 [facility] Comment on above: Performed By: #### C BC ####[facility] Spzgnjqiym786[address] [place], [place] [address]DrSkylar Leal MANUAL DIFF REQ NO Normal [facility] Comment on above: Performed By: #### C BC ####[facility] Qmxxotwode660[address] [place], [place] [address]DrSkylar Leal MCH (RBC) [Entitic mass] 29.6 pg Normal 25.9-34.[address] [facility] Comment on above: Performed By: #### C BC ####[facility] Mmiwqvcfsm[address] [place] [id number]. Farhat Elvis MCHC (RBC) [Mass/Vol] 32.2 g/dL Normal 29.9-35.2 [facility] Comment on above: Performed By: #### C BC ####[facility] Hrsrrwgopu37[address] [place] [id number] Leal MCV (RBC) [Entitic vol] 92.0 fL Normal 80.0-94.0 [facility] Comment on above: Performed By: #### C BC ####[facility] Wvjrrcbydv3[address] [place] [address]DrSkylar Leal MONO # 1.3 103/ul Critically high 0.3-0.8 [facility] Comment on above: Performed By: #### C BC ####[facility] Zzurutzjwo[address] [place], [place] [address]DrSkylar Leal Monocytes/100 WBC (Bld) 9.6 % Normal 1.7-12.0 [facility] Comment on above: Performed By: #### C BC ####[facility] Mwrbbkvlrw[address] [place], [place] [address]DrSkylar Leal NEUT # 11.2 103/ul Critically high 1.4-6.5 The [facility] Comment on above: Performed By: #### C BC ####[facility] Ppwgbyumwh[address] [place], [place] [address]DrSkylar Leal Neutrophils/100 WBC (Bld) 83.0 % Critically high 43.0-75.0 [facility] Comment on above: Performed By: #### C BC ####[facility] N[address]spq[address] [place], [place] [id number] Leal Platelet mean volume (Bld) [Entitic vol] 9.5 fL Normal 9.5-13.5 [facility] Comment on above: Performed By: #### C BC ####[facility] Axyboseyay[address] [place], [place] [id number] Leal PLT 395 103/ul Normal 150-450 [facility] Comment on above: Performed By: #### C BC ####[facility] Eofdcyqacl2787 [place] [id number]. Farhat Leal RBC 3.38 106/ul Critically low 4.70-6.10 [facility] Comment on above: Performed By: #### C BC ####[facility] Uhcitekgnn4987 [place] [address]Dr. Farhat Leal WBC 13.4 103/ul Critically high 4.0-11.0 [facility] Comment on above: Performed By: #### C BC ####[facility] Wezvcixtqt4139 [place] [address]Dr. Farhat Leal CRPon 11-24-2021 CRP 27.8 mg/dL Critically high <=1.0 [facility] Comment on above: Performed By: #### B FOREST ECOLOGY PROFESSOR, CMP, CRP ####[facility] Zuulrjjsxy45[address] [place] [phone]. Farhat Leal CULTURE ANAEROBICon 11-25-19 22 CULTURE ANAEROBIC Culture Observations : NO GROWTH OF ANAEROBES AT 72 HOURS. [facility] Comment on above: Performed By: #### A NACX ####[facility] B[address]fqhzapj[address] [place] [id number]. Farhat Leal CULTURE ANAEROBIC Culture Observations : NO GROWTH OF ANAEROBES AT [address] [facility] Comment on above: Performed By: #### A NACX ####[facility] Pemnhksibd9876 [place] [id number]. Farhat Leal CULTURE ANAEROBIC Culture Observations : No growth of anaerobes at 72 hours. [facility] Comment on above: Performed By: #### A NACX ####[facility] Zvsjpzrqdn[address] [place] [id number]. Farhat Leal CULTURE ANAEROBIC Culture Observations : No growth of anaerobes at 72 hours. [facility] Comment on above: Performed By: #### A NACX ####[facility] Etsfiawxns38[address] [place] [id number]. Farhat Leal CULTURE URINEon 10-10-2022 CULTURE URINE Culture Observations : NO GROWTH. Normal The [facility] Comment on above: Performed By: #### U RCX ####[facility] Jyhrfecvjq[address] [place], [place] [address]Dr. Farhat Leal ECHOCARDIO M/2D COMPLETEon 1 ECHOCARDIO M/2D COMPLETE Normal The [facility] ER URINE PROFILEon Bilirubin Ql (U) Negative Normal NEGATIVE The [facility] Comment on above: Performed By: #### E RUR ####[facility] Onijqhgidu650474 [address] [place], [place] [address]Dr. Farhat Leal Clarity (U) CLEAR Normal CLEAR The [facility] Comment on above: Performed By: #### E RUR ####[facility] Zkfuyqbtih[address] [place], [place] [address]Dr. Farhat Leal Color (U) YELLOW Normal YELLOW The [facility] Comment on above: Performed By: #### E RUR ####[facility] Kskxukaima436[address] [place], [place] [address]Dr. Farhat Leal ERUAHD A micrscopic examination will be performed if indicated. Normal The [facility] Comment on above: Performed By: #### E RUR ####[facility] Emolkluhjb2229[address] [place], [place] [address]Dr. Farhat Leal Glucose Ql (U) Negative Normal NEGATIVE The [facility] Comment on above: Performed By: #### E RUR ####[facility] Lahszqpglk878674 [address] [place], [place] [address]Dr. Farhat Leal Hemoglobin Ql (U) Negative Normal NEGATIVE The [facility] Comment on above: Performed By: #### E RUR ####[facility] Zveslvvgjs798774 [address] [place], [place] [address]Dr. Farhat Leal Ketones Ql (U) TRACE Abnormal NEGATIVE The [facility] Comment on above: Performed By: #### E RUR ####[facility] Kkjtfkxugt1232[address] [place], [place] [address]Dr. Farhat Leal LEUKOCYTES Negative Normal NEGATIVE The [facility] Comment on above: Performed By: #### E RUR ####[facility] [address]kw[address] [place] [address]Dr. Farhat Leal Nitrite Ql (U) Negative Normal NEGATIVE The [facility] Comment on above: Performed By: #### E RUR ####[facility] Khbgmqztpx716974 [address] [place], [place] [address]Dr. Farhat Leal pH (U) 5.5 [pH] Normal 5-[address] [facility] Comment on above: Performed By: #### E RUR ####[facility] Sllxwdppkd5814[address] [place], [place] [address]Dr. Farhat Leal SPEC GRAVITY 1.015 Normal 1.005-<=1.[address] [place] [address] Comment on above: Performed By: #### E RUR ####[facility] Ealvhmlgxk489474 [address] [place], [place] [address]Dr. Farhat Leal UA PROTEIN Negative Normal NEGATIVE/ TRACE [facility] Comment on above: Performed By: #### E RUR ####[facility] Whtrvgptpf830[address] [place], [place] [address]Dr. Farhat Leal UR MICRO IND NOT INDICATED Normal The [facility] Comment on above: Performed By: #### E RUR ####[facility] Xbkezmebcy9085[address] [place], [place] [address]Dr. Farhat Leal Urobilinogen Qn (U) 0.2 {Boyd'U}/dL Normal 0.2 - 1. [address] [facility] Comment on above: Performed By: #### E RUR ####[facility] Uyvloqvipc[address] [place], [place] [address]Dr. Farhat Leal GRAM STAINon 11-24-2021 DIPHTHEROIDS Normal The [facility] Comment on above: Performed By: #### G STAIN ####[facility] Culzesbjma930[address] [place], [place] [address]Dr. Farhat Leal EPITHELIALS Normal The [facility] Comment on above: Performed By: #### G STAIN ####[facility] Cjuvzwhehg000474 [address] [place], [place] [address]Dr. Farhat Leal FUNGAL ELEMENTS Normal The [facility] Comment on above: Performed By: #### G STAIN ####[facility] X[address]chpar[address] [place] [address]Dr. Farhat Leal GRAM NEG BACILLI Normal The [facility] Comment on above: Performed By: #### G STAIN ####[facility] Enqtfpmkql[address] [place] [address]Dr. Farhat Leal GRAM NEG DIPPLOCOCCI Normal The [facility] Comment on above: Performed By: #### G STAIN ####[facility] Xkkemcyoni[address] [place] [address]Dr. Farhat Leal GRAM POS BACILLI Normal The [facility] Comment on above: Performed By: #### G STAIN ####[facility] Eirezguipw7313[address] [place], [place] [address]Dr. Farhat Leal GRAM POSITIVE COCCI FEW Normal The [facility] Comment on above: Performed By: #### G STAIN ####[facility] Eoccrabqpk414[address] [place], [place] [address]Dr. Farhat Leal GRAM STAIN SOURCE RT ACHILLES TENDON Normal The [facility] Comment on above: Performed By: #### G STAIN ####[facility] Leyngohrol408[address] [place], [place] [address]Dr. Farhat Leal GS_DIPTH Normal The [facility] Comment on above: Performed By: #### G STAIN ####[facility] Svwdgevotr9801[address] [place], [place] [address]Dr. Farhat Leal WBC RARE Normal The [facility] Comment on above: Performed By: #### G STAIN ####[facility] Iyaskbcacu1955[address] [place], [place] [address]Dr. Farhat Leal COMMENTS NO ORGANISMS OBSERVED Normal The [facility] Comment on above: Performed By: #### G STAIN ####[facility] Ctvoqlvoes809574 [address] [place], [place] [address]Dr. Farhat Leal DIPHTHEROIDS Normal The [facility] Comment on above: Performed By: #### G STAIN ####[facility] Rvrmgmpqjm1928[address] [place], [place] [address]Dr. Farhat Leal EPITHELIALS Normal The [facility] Comment on above: Performed By: #### G STAIN ####[facility] Uzpmvlieyc637[address] [place], [place] [address]Dr. Farhat Leal FUNGAL ELEMENTS Normal The [facility] Comment on above: Performed By: #### G STAIN ####[facility] [address]foqta[address] [place] [address]Dr. Farhat Leal GRAM NEG BACILLI Normal The [facility] Comment on above: Performed By: #### G STAIN ####[facility] Qrvwedqoob6[address] [place] [address]Dr. Farhat Leal GRAM NEG DIPPLOCOCCI Normal The [facility] Comment on above: Performed By: #### G STAIN ####[facility] Kxsgmbsnpz3569[address] [place], [place] [address]Dr. Farhat Leal GRAM POS BACILLI Normal The [facility] Comment on above: Performed By: #### G STAIN ####[facility] Ysmrjcjliw154[address] [place], [place] [address]Dr. Farhat Leal GRAM POSITIVE COCCI Normal [facility] Comment on above: Performed By: #### G STAIN ####[facility] Dfcqruktmk767074 [address] [place], [place] [address]Dr. Farhat Leal GRAM STAIN SOURCE RT CALCANEOUS Normal The [facility] Comment on above: Performed By: #### G STAIN ####[facility] Wvxoacjgwf0844[address] [place], [place] [address]Dr. Farhat Leal GS_DIPTH Normal The [facility] Comment on above: Performed By: #### G STAIN ####[facility] Zkgogszand387674 [address] [place], [place] [address]Dr. Farhat Leal WBC RARE Normal The [facility] Comment on above: Performed By: #### G STAIN ####[facility] [address]qckshkp[address] [place] [address]Dr. Farhat Leal DIPHTHEROIDS Normal The [facility] Comment on above: Performed By: #### G STAIN ####[facility] Guplgiuppj465[address] [place], [place] [address]Dr. Farhat Leal EPITHELIALS Normal The [facility] Comment on above: Performed By: #### G STAIN ####[facility] Obbsdtdcmn180[address] [place], [place] [address]Dr. Farhat Leal FUNGAL ELEMENTS Normal The [facility] Comment on above: Performed By: #### G STAIN ####[facility] [address]xc[address] [place] [address]Dr. Farhat Leal GRAM NEG BACILLI FEW Normal The [facility] Comment on above: Performed By: #### G STAIN ####[facility] Gfbvwdxnvp47[address] [place] [address]Dr. Farhat Leal GRAM NEG DIPPLOCOCCI Normal The [facility] Comment on above: Performed By: #### G STAIN ####[facility] Wgheccbnqm[address] [place] [address]Dr. Farhat Leal GRAM POS BACILLI Normal The [facility] Comment on above: Performed By: #### G STAIN ####[facility] Ruqgunljxg964[address] [place], [place] [address]Dr. Farhat Leal GRAM POSITIVE COCCI FEW Normal The [facility] Comment on above: Performed By: #### G STAIN ####[facility] Oywwizaxdx410[address] [place], [place] [address]Dr. Farhat Leal GRAM STAIN SOURCE #2 Rt foot abscess Normal The [facility] Comment on above: Performed By: #### G STAIN ####[facility] Rbqxjrnjhf5512[address] [place], [place] [address]Dr. Farhat Leal GS_DIPTH Normal The [facility] Comment on above: Performed By: #### G STAIN ####[facility] Vgihgnfxvl2777[address] [place], [place] [address]Dr. Farhat Leal WBC RARE Normal The [facility] Comment on above: Performed By: #### G STAIN ####[facility] Dtpvelenxc[address] [place] [address]Dr. Farhat Leal DIPHTHEROIDS Normal The [facility] Comment on above: Performed By: #### G STAIN ####[facility] Trfinlduiz9590[address] [place], [place] [address]Dr. Farhat Leal EPITHELIALS Normal The [facility] Comment on above: Performed By: #### G STAIN ####[facility] Qszacmjmdu4[address] [place] [address]Dr. Farhat Leal FUNGAL ELEMENTS Normal The [facility] Comment on above: Performed By: #### G STAIN ####[facility] Ravilammbt[address] [place] [id number]. Farhat Leal GRAM NEG BACILLI FEW Normal The [facility] Comment on above: Performed By: #### G STAIN ####[facility] Ebaognkxan77[address] [place] [address]Dr. Farhat Leal GRAM NEG DIPPLOCOCCI Normal The [facility] Comment on above: Performed By: #### G STAIN ####[facility] Eyqrxdlovh4284 [place] [address]Dr. Farhat Leal GRAM POS BACILLI Normal The [facility] Comment on above: Performed By: #### G STAIN ####[facility] B[address]uhzehkm[address] [place] [address]Dr. Farhat Leal GRAM POSITIVE COCCI FEW Normal The [facility] Comment on above: Performed By: #### G STAIN ####[facility] Opnrztdfan228[address] [place], [place] [address]Dr. Farhat Leal GRAM STAIN SOURCE #1 Rt foot abscess Normal The [facility] Comment on above: Performed By: #### G STAIN ####[facility] Rxercgshcl[address] [place] [address]Dr. Farhat Leal GS_DIPTH Normal The [facility] Comment on above: Performed By: #### G STAIN ####[facility] Ispzlwnoiu40[address] [place] [address]Dr. Farhat Leal WBC NONE SEEN Normal The [facility] Comment on above: Performed By: #### G STAIN ####[facility] Wmazxrmfie[address] [place], [place] [address]Dr. Farhat Leal POINT OF CARE GLUCOSEon 10- 0-2021 Glucose [Mass/Vol] 331 mg/dL Critically high 74-106 [facility] Comment on above: Performed By: #### P OCGLUC ####[facility] Ejvwtgqgra4864[address] [place], [place] [address]Dr. Farhat Leal Glucose [Mass/Vol] 236 mg/dL Critically high 74-106 [facility] Comment on above: Performed By: #### P OCGLUC ####[facility] Hxoxbggign32[address] [place], [place] [address]Dr. Farhat Leal PROF 14(COMP METB)on 022 Albumin [Mass/Vol] 1.6 g/dL Critically low 3.4-5.0 [facility] Comment on above: Performed By: #### B FOREST ECOLOGY PROFESSOR, CMP, CRP ####[facility] Xfoebjcbxu32[address] [place] [address]Dr. Farhat Leal Albumin/Globulin [Mass ratio] 0.4 {ratio} Normal [facility] Comment on above: Performed By: #### B FOREST ECOLOGY PROFESSOR, CMP, CRP ####[facility] Kwvwxaqddf[address] [place] [address]Dr. Farhat Leal ALP [Catalytic activity/Vol] 94 U/L Normal 46-[address] [facility] Comment on above: Performed By: #### B FOREST ECOLOGY PROFESSOR, CMP, CRP ####[facility] Bpdatwxszw64[address] [place] [address]Dr. Farhat Leal ALT [Catalytic activity/Vol] 49 U/L Normal 16-[address] [facility] Comment on above: Performed By: #### B FOREST ECOLOGY PROFESSOR, CMP, CRP ####[facility] Fgkzmanlfi30[address] [place] [address]Dr. Farhat Leal Anion gap [Moles/Vol] 12.5 mmol/L Normal [facility] Comment on above: Performed By: #### B FOREST ECOLOGY PROFESSOR, CMP, CRP ####[facility] Ctnrmkhtai47[address] [place] [address]Dr. Farhat Leal AST [Catalytic activity/Vol] 102 U/L Critically high 15-[address] [facility] Comment on above: Performed By: #### B FOREST ECOLOGY PROFESSOR, CMP, CRP ####[facility] Izgvfdsmgp9[address] [place] [address]Dr. Farhat Leal Bilirubin [Mass/Vol] 0.8 mg/dL Normal 0.2-1.[address] [facility] Comment on above: Performed By: #### B FOREST ECOLOGY PROFESSOR, CMP, CRP ####[facility] Llevjcsoss38[address] [place] [address]Dr. Farhat Leal Calcium [Mass/Vol] 8.4 mg/dL Critically low 8.5-10.1 [facility] Comment on above: Performed By: #### B FOREST ECOLOGY PROFESSOR, CMP, CRP ####[facility] Jfxpmcetud[address] [place] [address]Dr. Farhat Leal Chloride [Moles/Vol] 96 mmol/L Critically low 98-[address] [facility] Comment on above: Performed By: #### B FOREST ECOLOGY PROFESSOR, CMP, CRP ####[facility] Oexldcxptt6[address] [place] [address]Dr. Farhat Leal CO2 [Moles/Vol] 24.8 mmol/L Normal 21.0-32.0 [facility] Comment on above: Performed By: #### B FOREST ECOLOGY PROFESSOR, CMP, CRP ####[facility] Otkbrpyrek[address] [place], [place] [address]Dr. Farhat Leal Creatinine [Mass/Vol] 1.36 mg/dL Critically high 0.70-1.[address] [facility] Comment on above: Performed By: #### B FOREST ECOLOGY PROFESSOR, CMP, CRP ####[facility] Nefhvdbqdf6865[address] [place], [place] [address]Dr. Madelynlorri Elvis EGFR-AF BURMESE >60 Normal >=60 [facility] Comment on above: Performed By: #### B FOREST ECOLOGY PROFESSOR, CMP, CRP ####[facility] Lftvvzuwys06[address] [place], [place] [address]Dr. Farhat Leal EGFR-NON AF BURMESE 51 mL/min/1.73m2 Critically low >=[address] [facility] Comment on above: Performed By: #### B FOREST ECOLOGY PROFESSOR, CMP, CRP ####[facility] Ektuxjpadr228[address] [place], [place] [address]Dr. Farhat Leal Globulin (S) [Mass/Vol] 4.1 g/dL Normal [facility] Comment on above: Performed By: #### B FOREST ECOLOGY PROFESSOR, CMP, CRP ####[facility] Dhrxrztanh37[address] [place] [address]Dr. Farhat Leal Glucose [Mass/Vol] 204 mg/dL Critically high 74-106 [facility] Comment on above: Performed By: #### B FOREST ECOLOGY PROFESSOR, CMP, CRP ####[facility] Ykadbyuqty84[address] [place], [place] [address]Dr. Farhat Leal Potassium [Moles/Vol] 4.3 mmol/L Normal 3.5-5.[address] [facility] Comment on above: Performed By: #### B FOREST ECOLOGY PROFESSOR, CMP, CRP ####[facility] Wrhdrhvlqh820[address] [place], [place] [address]Dr. Farhat Leal Protein [Mass/Vol] 5.7 g/dL Critically low 6.4-8.2 [facility] Comment on above: Performed By: #### B FOREST ECOLOGY PROFESSOR, CMP, CRP ####[facility] Ewydqmhhlz304[address] [place], [place] [address]Dr. Farhat Leal Sodium [Moles/Vol] 129 mmol/L Critically low 136-145 [facility] Comment on above: Performed By: #### B FOREST ECOLOGY PROFESSOR, CMP, CRP ####[facility] Eniswxyase199[address] [place], [place] [address]Dr. Farhat Leal Urea nitrogen [Mass/Vol] 41.0 mg/dL Critically high 7.0-18.[address] [facility] Comment on above: Performed By: #### B FOREST ECOLOGY PROFESSOR, CMP, CRP ####[facility] Zsllbiqxfe2439[address] [place], [place] [address]Dr. Farhat Leal Urea nitrogen/Creatinine [Mass ratio] 30.1 mg/mg Normal [facility] Comment on above: Performed By: #### B FOREST ECOLOGY PROFESSOR, CMP, CRP ####[facility] Wmursvzviw8[address] [place], [place] [address]Dr. Farhat Leal PROTIMEon 11-24-2021 INR Coag (PPP) [Relative time] 2.20 {INR} Normal [facility] Comment on above: Performed By: #### P T ####[facility] Gknxsjwhkx06[address] [place], [place] [address]Dr. Farhat Leal INR GUIDELINES SEE BELOW Normal The [facility] Comment on above: Result Comment: MALINA RED INR: 2.0 - 3.0 CONDITIONS NOT LISTED BELOW 2.5 - 3.5 FOR PROSTHETIC HEART VALVE REPLACEMENT 2.5 - 3.5 RECURRENT THROMBOSIS Performed By: #### P T ####[facility] Ezqvkruhgu6538[address] [place], [place] [address]Dr. Farhat Leal PT Coag (PPP) [Time] 22.6 s Critically high 9.0-11.6 The [facility] Comment on above: Performed By: #### P T ####[facility] Gvrdszmfsm417[address] [place], [place] [address]Dr. Farhat Leal SED RATE [facility] 2021 SED RATE 80 mm/hr Critically high <=20 [facility] Comment on above: Performed By: #### S EDR ####[facility] Xinszurwfo[address]16[address] [place], [place] [address]Dr. Farhat Leal BLOOD CULTURE ID PANELon A. baumannii Not detected Normal NOT DETECTED The [facility] Comment on above: Performed By: #### B CID2 ####[facility] Stqndrllgp[address] [place], [place] [address]Dr. Farhat Leal Bacteriodes fragilis Not detected Normal NOT DETECTED The [facility] Comment on above: Performed By: #### B CID2 ####[facility] Vsclgaeqye[address] [place], [place] [address]Dr. Farhat Leal BCID CONTROLS PASSED Normal The [facility] Comment on above: Performed By: #### B CID2 ####[facility] Xooywnkvjo[address] [place], [place] [address]Dr. Farhat Leal BCIDBTHD BLOOD CULTURE BOTTLE INFORMATION Normal The [facility] Comment on above: Performed By: #### B CID2 ####[facility] Hocgplfnjd52[address] [place], [place] [address]Dr. Farhat Leal BCIDHD1 ANTIMICROBIAL RESISTANCE GENES Normal The [facility] Comment on above: Performed By: #### B CID2 ####[facility] Qlggjsopya[address] [place], [place] [address]Dr. Farhat Leal BCIDHD2 SEE BELOW Normal The [facility] Comment on above: Result Comment: Note : Antimicrobial resitance can occur via multiple mechanisms. A Not Detected result for the [employer] antomicrobial resistance gene assays does not indicate antimicrobial susceptibility. Subculturing is required for species identification and susceptibility testing of isolates. Performed By: #### B CID2 ####[facility] Uugqgvcldc[address] [place], [place] [address]Dr. Farhat Leal BCIDHD3 Positive Normal The [facility] Comment on above: Performed By: #### B CID2 ####[facility] Tflkdahshc[address] [place] [address]Dr. Yilorri Leal BCIDHD4 Negative Normal The [facility] Comment on above: Performed By: #### B CID2 ####[facility] Kizfxubmee[address] [place] [address]Dr. Farhat Leal BCIDHD5 YEAST Normal The [facility] Comment on above: Performed By: #### B CID2 ####[facility] Oaaznbctfh280[address] [place] [address]Dr. Farhat Leal Bottle Set: Set 1 Normal The [facility] Comment on above: Performed By: #### B CID2 ####[facility] Qfwmkuldho16[address] [place], [place] [address]Dr. Farhat Leal Bottle: Aerobic Normal The [facility] Comment on above: Performed By: #### B CID2 ####[facility] Apighlnlex[address] [place], [place] [address]Dr. Yilorri Leal C. neoformans/gattii Not detected Normal NOT DETECTED The [facility] Comment on above: Performed By: #### B CID2 ####[facility] Iuxqvxtdbi[address] [place], [place] [address]Dr. Yilorri [facility] Disha albicans Not detected Normal NOT DETECTED The [facility] Comment on above: Performed By: #### B CID2 ####[facility] Xkkuocrdhp[address] [place], [place] [address]Dr. Yilorri Leal Disha auris Not detected Normal NOT DETECTED [facility] Comment on above: Performed By: #### B CID2 ####[facility] Nwkbuofazf40[address] [place] [address]Dr. Yilorri Leal Disha glabrata Not detected Normal NOT DETECTED The [facility] Comment on above: Performed By: #### B CID2 ####[facility] Eknfahqmst[address] [place] [address]Dr. Yilorri Leal Disha Krusei Not detected Normal NOT DETECTED The [facility] Comment on above: Performed By: #### B CID2 ####[facility] Dwdqccdjhe6456 [place] [address]Dr. Yilan Leal Disha Parapsilosis Not detected Normal NOT DETECTED The [facility] Comment on above: Performed By: #### B CID2 ####[facility] Mxvwgigizx289[address] [place], [place] [address]Dr. Yilan Leal Disha Tropicalis Not detected Normal NOT DETECTED [facility] Comment on above: Performed By: #### B CID2 ####[facility] Soqhjcaivj[address] [place], [place] [address]Dr. Farhat Leal CTX-M Resistant Gene Not Applicable Normal NOT DETECTE D [facility] Comment on above: Performed By: #### B CID2 ####[facility] Hdpmecopvp515[address] [place], [place] [address]Dr. Yilorri Leal E. Cloacae complex Not detected Normal NOT DETECTED [facility] Comment on above: Performed By: #### B CID2 ####[facility] Qpxwrhcjbe057174 [address] [place], [place] [address]Dr. Yilan Leal E. faecalis Not detected Normal NOT DETECTED The [facility] Comment on above: Performed By: #### B CID2 ####[facility] Orlzzpqeqc942974 [address] [place], [place] [address]Dr. Farhat Leal E. faecium Not detected Normal NOT DETECTED The [facility] Comment on above: Performed By: #### B CID2 ####[facility] Mlbszapxny5[address] [place], [place] [address]Dr. Yilan Leal Enterobacteriaceae Not detected Normal NOT DETECTED [facility] Comment on above: Performed By: #### B CID2 ####[facility] Azengepujf359374 [address] [place], [place] [address]Dr. Yilan Leal Escherichia coli Not detected Normal NOT DETECTED The [facility] Comment on above: Performed By: #### B CID2 ####[facility] Rfirtvftur779674 [address] [place], [place] [address]Dr. Yilan Leal H. influenzae Not detected Normal NOT DETECTED The [facility] Comment on above: Performed By: #### B CID2 ####[facility] Pctbqdaqel4283 [place] [address]Dr. Farhat Leal IMP Resistant Gene Not Applicable Normal NOT DETECTED The [facility] Comment on above: Performed By: #### B CID2 ####[facility] Cydkuuyidz911074 [address] [place], [place] [address]Dr. Farhat Leal K. oxytoca Not detected Normal NOT DETECTED The [facility] Comment on above: Performed By: #### B CID2 ####[facility] Ottuwotvaz[address] [place], [place] [address]Dr. Farhat Leal K. pneumoniae Not detected Normal NOT DETECTED The [facility] Comment on above: Performed By: #### B CID2 ####[facility] Gnggwreukm957374 [address] [place], [place] [address]Dr. Farhat Leal Klebsiella aerogenes Not detected Normal NOT DETECTED The [facility] Comment on above: Performed By: #### B CID2 ####[facility] Prgiuxcosv191274 [address] [place], [place] [address]Dr. Farhat Leal KPC Resistant Gene Not Applicable Normal NOT DETECTED The [facility] Comment on above: Performed By: #### B CID2 ####[facility] Sbhrrsmisv301074 [address] [place], [place] [address]Dr. Farhat Leal List. monocytogenes Not detected Normal NOT DETECTED [facility] Comment on above: Performed By: #### B CID2 ####[facility] Itvskkqjtd473174 [address] [place], [place] [address]Dr. Farhat Leal Mcr-1 Resistant Gene Not Applicable Normal NOT DETECTE D The [facility] Comment on above: Performed By: #### B CID2 ####[facility] Ncvfzwywjy581674 [address] [place], [place] [address]Dr. Farhat Leal mecA/C Not Applicable Normal NOT DETECTED The [facility] Comment on above: Performed By: #### B CID2 ####[facility] Plsrygojpd150474 [address] [place], [place] [address]Dr. Farhat Leal mecA/C MREJ Detected Abnormal NOT DETECTED The [facility] Comment on above: Performed By: #### B CID2 ####[facility] Uhsinyfdvw513674 [address] [place], [place] [address]Dr. Farhat Leal N. meningitidis Not detected Normal NOT DETECTED The [facility] Comment on above: Performed By: #### B CID2 ####[facility] Nhxwsfcxxf915174 [address] [place], [place] [address]Dr. Farhat Leal NDM Resistant Gene Not Applicable Normal NOT DETECTED The [facility] Comment on above: Performed By: #### B CID2 ####[facility] Hzjtmpzqms029574 [address] [place], [place] [address]Dr. Farhat Leal Oxa-48-like Not Applicable Normal NOT DETECTED The [facility] Comment on above: Performed By: #### B CID2 ####[facility] Djicxyzjef399274 [address] [place], [place] [address]Dr. Farhat Leal Proteus Not detected Normal NOT DETECTED The [facility] Comment on above: Performed By: #### B CID2 ####[facility] Evisxdnvlc433474 [address] [place], [place] [address]Dr. Farhat Leal Pseud. aeruginosa Not detected Normal NOT DETECTED The [facility] Comment on above: Performed By: #### B CID2 ####[facility] Ivgswofoee922674 [address] [place], [place] [address]Dr. Farhat Leal S. maltophilia Not detected Normal NOT DETECTED The [facility] Comment on above: Performed By: #### B CID2 ####[facility] Dehkjkxmyd300674 [address] [place], [place] [address]Dr. Farhat Leal Salmonella Not detected Normal NOT DETECTED The [facility] Comment on above: Performed By: #### B CID2 ####[facility] Ruvlwairkb189574 [address] [place], [place] [address]Dr. Farhat Leal Seratia marcescens Not detected Normal NOT DETECTED [facility] Comment on above: Performed By: #### B CID2 ####[facility] Kskxokxddk691774 [address] [place], [place] [address]Dr. Farhat Leal Site: Rt Hand Normal The [facility] Comment on above: Performed By: #### B CID2 ####[facility] Zgsjzqjmig580874 [address] [place], [place] [address]Dr. Fahrat Leal Staph. aureus Detected Abnormal NOT DETECTED The [facility] Comment on above: Performed By: #### B CID2 ####[facility] Hzjkfbbfzk5865 [place] [address]Dr. Farhat Leal Staph. epidermidis Not detected Normal NOT DETECTED [facility] Comment on above: Performed By: #### B CID2 ####[facility] Pfiovdypcm752874 [address] [place], [place] [address]Dr. Farhat Leal Staph. lugdunensis Not detected Normal NOT DETECTED [facility] Comment on above: Performed By: #### B CID2 ####[facility] Vfkfqoxttz1269[address] [place], [place] [address]Dr. Farhat Leal Staphylococcus Detected Abnormal NOT DETECTED The [facility] Comment on above: Performed By: #### B CID2 ####[facility] Zryydrvlsz318674 [address] [place], [place] [address]Dr. Farhat Leal Strep. agalactiae Not detected Normal NOT DETECTED The [facility] Comment on above: Performed By: #### B CID2 ####[facility] Cmlqrjnvoo262574 [address] [place], [place] [address]Dr. Farhat Leal Strep. pneumoniae Not detected Normal NOT DETECTED The [facility] Comment on above: Performed By: #### B CID2 ####[facility] Xjfflmucce215274 [address] [place], [place] [address]Dr. Madelynlorri Leal Strep. pyogenes Not detected Normal NOT DETECTED The [facility] Comment on above: Performed By: #### B CID2 ####[facility] Marfheejvj5069[address] [place], [place] [address]Dr. Farhat Leal Streptococcus Not detected Normal NOT DETECTED The [facility] Comment on above: Performed By: #### B CID2 ####[facility] Lkcipluzvk027[address] [place], [place] [address]Dr. Farhat Leal Teodoro/B Resist. Gene Not Applicable Normal NOT DETECTED The [facility] Comment on above: Performed By: #### B CID2 ####[facility] Ghozexjkyk978474 [address] [place], [place] [address]Dr. Farhat Leal VIM Resistant Gene Not Applicable Normal NOT DETECTED The [facility] Comment on above: Performed By: #### B CID2 ####[facility] Xpfiilvqma[address] [place] [address]Dr. Farhat Leal BNPon 11-23-2021 Natriuretic peptide B (Bld) [Mass/Vol] 79176.0 pg/mL Critically high <=1,800.[address] [facility] Comment on above: Performed By: #### C MP, CMADM, BNP ####[facility] Encaimslvg[address] [place] [address]Dr. Farhat Leal CARDIAC AMANDA ADMITon 022 CK [Catalytic activity/Vol] 41 U/L Normal 39-308 The [facility] Comment on above: Performed By: #### C MP, CMADM, BNP ####[facility] Pzdlsgjzdy5352 [place] [address]Dr. Farhat Leal CK.MB [Mass/Vol] 0.98 ng/mL Normal <=3.60 The [facility] Comment on above: Performed By: #### C MP, CMADM, BNP ####[facility] Mequmcjoml489[address] [place], [place] [address]Dr. Farhat Leal HSTROP 30.1 pg/mL Normal 4.0-76.1 The [facility] Comment on above: Result Comment: CUT- OFF POINTS HAVE BEEN ESTABLISHED BASED ON THE FOURTH UNIVERSAL DEFINITIONS OF MYOCARDIALINFARCTION. THE UPPER REFERENCE LIMIT (URL) OF TROPONIN, DEFINED THE 99TH PERCENTILE OFcTnI DISTRIBUTION IN A REFERENCE POPULATION, HAS BEEN CONFIRMED THE DECISION THRESHOLDFOR RI DIAGNOSIS. Performed By: #### C MP, CMADM, BNP ####[facility] Vstuomdrqm8453 [place] [address]Dr. Faraht Leal VALERIA 160 ng/mL Critically high 16-96 The [facility] Comment on above: Performed By: #### C MP, CMADM, BNP ####[facility] Osgaehfvno90[address] [place] [address]Dr. Farhat Leal CBC AUTO DIFFon 11-23-2021 BASO # 0.0 103/ul Normal 0.0-0.1 The [facility] Comment on above: Performed By: #### C BC ####[facility] Vhuhuferwh87[address] [place] [address]Dr. Farhat Leal Basophils/100 WBC (Bld) 0.2 % Normal 0.2-2.0 The [facility] Comment on above: Performed By: #### C BC ####[facility] Yonznbyrfr7[address] [place], [place] [address]Dr. Farhat Leal EO # 0.0 103/ul Normal 0.0-0.7 The [facility] Comment on above: Performed By: #### C BC ####[facility] Eecqigiihx0069[address] [place], [place] [address]Dr. Farhat Leal Eosinophils/100 WBC (Bld) 0.1 % Critically low 0.9-7.0 The [facility] Comment on above: Performed By: #### C BC ####[facility] Oyusnuouiy664[address] [place], [place] [address]Dr. Farhat Leal Erythrocyte distribution width (RBC) [Ratio] 13.4 % Normal 11.0-15.0 The [facility] Comment on above: Performed By: #### C BC ####[facility] Zbspaipjhy[address] [place], [place] [address]Dr. Farhat Leal Hematocrit (Bld) [Volume fraction] 31.6 % Critically low 42.0-54.0 The [facility] Comment on above: Performed By: #### C BC ####[facility] Vteqahoiql[address] [place], [place] [address]Dr. Farhat Leal Hemoglobin (Bld) [Mass/Vol] 10.4 g/dL Critically low 14.0-18.0 The [facility] Comment on above: Performed By: #### C BC ####[facility] Yvlybdjkvj[address] [place], [place] [address]Dr. Farhat Leal IG # 0.11 10e3/ul Critically high 0.00-0.03 The [facility] Comment on above: Performed By: #### C BC ####[facility] Zykgdcirzh59[address] [place], [place] [address]Dr. Farhat Leal IG % 0.7 % Critically high 0.0-0.5 The [facility] Comment on above: Performed By: #### C BC ####[facility] Vghjlbtwoz47[address] [place], [place] [address]An. Farhat Elvis LYMPH # 0.5 103/ul Critically low 1.2-3.8 The [facility] Comment on above: Performed By: #### C BC ####[facility] Exveewgzor46[address] [place], [place] [address]Zx. Farhat Elvis Lymphocytes/100 WBC (Bld) 2.8 % Critically low 20.5-60.0 The [facility] Comment on above: Performed By: #### C BC ####[facility] Socrzybzai[address] [place] [id number]. Madelynlorri Leal MANUAL DIFF REQ NO Normal The [facility] Comment on above: Performed By: #### C BC ####[facility] Vjanlaigxs64[address] [place] [address]Dr. Farhat Elvis MCH (RBC) [Entitic mass] 29.8 pg Normal 25.9-34.0 The [facility] Comment on above: Performed By: #### C BC ####[facility] Ravhlduhil7499 [place] [address]Dr. Farhat Elvis MCHC (RBC) [Mass/Vol] 32.9 g/dL Normal 29.9-35.2 The [facility] Comment on above: Performed By: #### C BC ####[facility] Qkohubqxbz65[address] [place] [address]Dr. Madelynlorri Elvis MCV (RBC) [Entitic vol] 90.5 fL Normal 80.0-94.0 The [facility] Comment on above: Performed By: #### C BC ####[facility] Rlfkyddsjn5[address] [place] [address]Dr. Farhat Elvis MONO # 1.3 103/ul Critically high 0.3-0.8 The [facility] Comment on above: Performed By: #### C BC ####[facility] Jjxproobos6920 [place] [address]Dr. Madelynlorri Leal Monocytes/100 WBC (Bld) 8.3 % Normal 1.7-12.0 The [facility] Comment on above: Performed By: #### C BC ####[facility] Akgpkrdmvv7[address] [place], [place] [address]Rv. Farhat Leal NEUT # 13.9 103/ul Critically high 1.4-6.5 The [facility] Comment on above: Performed By: #### C BC ####[facility] Suinqccthl6[address] [place], [place] [address]Tm. Farhat Leal Neutrophils/100 WBC (Bld) 87.9 % Critically high 43.0-75.0 The [facility] Comment on above: Performed By: #### C BC ####[facility] Mgkkhkmxxj5443 [place], [place] [address]Be. Farhat Leal Platelet mean volume (Bld) [Entitic vol] 9.3 fL Critically low 9.5-13.[address] [facility] Comment on above: Performed By: #### C BC ####[facility] Afglcjzvxq53[address] [place] [address]Dr. Farhat Leal PLT 390 103/ul Normal 150-450 The [facility] Comment on above: Performed By: #### C BC ####[facility] Axvoswkxjz16[address] [place], [place] [address]Vp. Farhat Leal RBC 3.49 106/ul Critically low 4.70-6.10 The [facility] Comment on above: Performed By: #### C BC ####[facility] Tfdiaixrkb3987 [place], [place] [address]Qe. Farhat Leal WBC 15.9 103/ul Critically high 4.0-11.0 The [facility] Comment on above: Performed By: #### C BC ####[facility] Spmavcxluf84[address] [place], [place] [address]Wh. Farhat Leal CT HEAD WO CONon 11-23-2021 CT HEAD WO CON Normal The [facility] CULTURE BLOODon 11-23-2021 Microscopic examination of blood, culture Culture Observations: NO GROWTH AT 5 DAYS. Normal The [facility] Comment on above: Performed By: #### B LDCX2 ####[facility] Sslrexhkoo65[address] [place] [phone]. Farhat Leal Covid-19 PCR (CVDTBH)on SARS-CoV-2 (COVID-19) RNA JOSH+probe Ql (Unsp spec) Not detected Normal NOT DETECTED The [facility] Comment on above: Result Comment: When diagnostic [...] for this test is supported by the [employer] of [employer] and [employer] Service's declaration that [...] C VDTBH ####[facility] Vifsxgqqmd98[address] [place] [address]Dr. Farhat Leal LACTATE/LACTIC ACIDon 2021 Lactate [Moles/Vol] 1.3 mmol/L Normal 0.4-1.9 [facility] Comment on above: Performed By: #### L ACT ####[facility] Zortsgpkdr[address] [place], [place] [address]DrSkylar Leal Lactate [Moles/Vol] 1.3 mmol/L Normal 0.4-1.9 [facility] Comment on above: Performed By: #### L ACT ####[facility] Vsfkxwmtcd[address] [place], [place] [address]DrSkylar Leal POINT OF CARE GLUCOSEon Glucose [Mass/Vol] 252 mg/dL Critically high 74-106 [facility] Comment on above: Performed By: #### P OCGLUC ####[facility] Qwxdpfonvl7748 [place] [address]DrSkylar Leal PROF 14(COMP METB)on 022 Albumin [Mass/Vol] 1.6 g/dL Critically low 3.4-5.0 [facility] Comment on above: Performed By: #### C MP CMADM, BNP ####[facility] Kffsikdeiq8036 [place] [address]Dr. Farhat Leal Albumin/Globulin [Mass ratio] 0.4 {ratio} Normal [facility] Comment on above: Performed By: #### C MP, CMADM, BNP ####[facility] Rpbrldhgin8627 [place] [address]Dr. Farhat Elvis ALP [Catalytic activity/Vol] 98 U/L Normal 46-[address] [facility] Comment on above: Performed By: #### C MP, CMADM, BNP ####[facility] Vajiozcjld8051 [place] [address]Dr. Farhat Leal ALT [Catalytic activity/Vol] 52 U/L Normal 16-[address] [facility] Comment on above: Performed By: #### C CARA CMADM, BNP ####[facility] Pddqtfxgoa5112 [place] [address]Dr. Farhat Leal Anion gap [Moles/Vol] 9.8 mmol/L Normal [facility] Comment on above: Performed By: #### C MP CMADM, BNP ####[facility] Reqpvpvpfd6006 [place] [address]Dr. Farhat Leal AST [Catalytic activity/Vol] 122 U/L Critically high 15-[address] [facility] Comment on above: Performed By: #### C MP, CMADM, BNP ####[facility] Ylpbwwihio8835 [place] [address]Dr. Farhat Leal Bilirubin [Mass/Vol] 0.7 mg/dL Normal 0.2-1.[address] [facility] Comment on above: Performed By: #### C MP, CMADM, BNP ####[facility] Zelripjhuv5518 [place] [address]Dr. Farhat Leal Calcium [Mass/Vol] 8.6 mg/dL Normal 8.5-10.1 [facility] Comment on above: Performed By: #### C MP, CMADM, BNP ####[facility] Zjswhkchjg7902 [place] [address]Dr. Farhat Leal Chloride [Moles/Vol] 95 mmol/L Critically low 98-107 The [facility] Comment on above: Performed By: #### C MP, CMADM, BNP ####[facility] Sjhhodnsvx2471 [place] [address]Dr. Farhat Leal CO2 [Moles/Vol] 29.6 mmol/L Normal 21.0-32.0 The [facility] Comment on above: Performed By: #### C MP, CMADM, BNP ####[facility] Azrzlrnqzw63[address] [place] [address]Dr. Farhat Leal Creatinine [Mass/Vol] 1.49 mg/dL Critically high 0.70-1.[address] [facility] Comment on above: Performed By: #### C MP, CMADM, BNP ####[facility] Yofnwqjcvj[address] [place], [place] [address]Dr. Madelynlorri Elvis EGFR-AF BURMESE 55 mL/min/1.73m2 Critically low >=[address] [facility] Comment on above: Performed By: #### C MP, CMADM, BNP ####[facility] Yonfmeexwy[address] [place], [place] [address]Dr. Farhat Elvis EGFR-NON AF BURMESE 46 mL/min/1.73m2 Critically low >=60 The [facility] Comment on above: Performed By: #### C MP, CMADM, BNP ####[facility] Vnetgwfbss9691 [place] [address]Dr. Farhat Leal Globulin (S) [Mass/Vol] 4.3 g/dL Normal The [facility] Comment on above: Performed By: #### C MP, CMADM, BNP ####[facility] Tsfykvoqns13[address] [place] [address]Dr. Madelynlorri Elvis Glucose [Mass/Vol] 213 mg/dL Critically high 74-106 [facility] Comment on above: Performed By: #### C MP, CMADM, BNP ####[facility] Jkruobxorq1906 [place] [address]Dr. Farhat Leal Potassium [Moles/Vol] 4.4 mmol/L Normal 3.5-5.[address] [facility] Comment on above: Performed By: #### C FATMATA MARROQUINDM, BNP ####[facility] Jaabdqfvai2644 [place] [address]Dr. Madelynlorri Leal Protein [Mass/Vol] 5.9 g/dL Critically low 6.4-8.2 [facility] Comment on above: Performed By: #### C FATMATA MARROQUINDM, BNP ####[facility] Tfbrhsboxs9361 [place] [address]Dr. Madelynlorri Leal Sodium [Moles/Vol] 130 mmol/L Critically low 136-145 [facility] Comment on above: Performed By: #### C ANTWAN MARROQUIN, BNP ####[facility] Mviwayfzwf6073 [place] [address]Dr. Farhat Leal Urea nitrogen [Mass/Vol] 46.0 mg/dL Critically high 7.0-18.[address] [facility] Comment on above: Performed By: #### C FATMATA MARROQUINDM, BNP ####[facility] Hgrcgzjqcd7867 [place] [address]Dr. Farhat Leal Urea nitrogen/Creatinine [Mass ratio] 30.9 mg/mg Normal [facility] Comment on above: Performed By: #### C ANTWAN MARROQUIN, BNP ####[facility] Aquxpwjiav73[address] [place] [address]Dr. Farhat Leal PROTIMEon 11-23-2021 INR Coag (PPP) [Relative time] 2.55 {INR} Normal [facility] Comment on above: Performed By: #### P TT, PT ####[facility] Sniftejjcp[address] [place] [address]Dr. Farhat Leal INR GUIDELINES SEE BELOW Normal The [facility] Comment on above: Result Comment: MALINA RED INR: 2.0 - 3.0 CONDITIONS NOT LISTED BELOW 2.5 - 3.5 FOR PROSTHETIC HEART VALVE REPLACEMENT 2.5 - 3.5 RECURRENT THROMBOSIS Performed By: #### P TT, PT ####[facility] Mrehzzylbl[address] [place], [place] [address]Dr. Farhat Elvis PT Coag (PPP) [Time] 25.9 s Critically high 9.0-11.6 The [facility] Comment on above: Performed By: #### P TT, PT ####[facility] Ntijqtmfvg[address] [place], [place] [address]Dr. Farhat Leal PTTon 11-23-2021 aPTT Coag (Bld) [Time] 39.9 s Critically high 22.3-36. 2 [facility] Comment on above: Performed By: #### P TT, PT ####[facility] Hfoaagqtnm[address] [place], [place] [address]Dr. Farhat Elvis XR CHEST 1 Von 11-23-2021 XR CHEST 1 V Normal [facility] XR HEEL RT 2Von 11-23-2021 XR HEEL RT 2V Normal [facility] XR FOOT RT MIN 3 VIEWSon XR FOOT RT MIN 3 VIEWS Normal [facility] US ARTERY LEG RTon 2 US ARTERY LEG RT Normal The [facility] CBC AUTO DIFFon 09-24-2021 BASO # 0.1 103/ul Normal 0.0-0.1 The [facility] Comment on above: Performed By: #### C BC ####[facility] Gfmljlwwjd7813[address] [place], [place] [address]Dr. Farhat Leal Basophils/100 WBC (Bld) 0.7 % Normal 0.2-2.0 [facility] Comment on above: Performed By: #### C BC ####[facility] Zdmilwziiz318[address] [place], [place] [address]Dr. Farhat Leal EO # 0.3 103/ul Normal 0.0-0.7 [facility] Comment on above: Performed By: #### C BC ####[facility] Htbratgjot317[address] [place], [place] [address]Dr. Farhat Leal Eosinophils/100 WBC (Bld) 3.9 % Normal 0.9-7.0 The [facility] Comment on above: Performed By: #### C BC ####[facility] Xubddknaqo[address]25[address] [place], [place] [address]Dr. Farhat Leal Erythrocyte distribution width (RBC) [Ratio] 12.6 % Normal 11.0-15.[address] [facility] Comment on above: Performed By: #### C BC ####[facility] [address]ets[address] [place] [address]Dr. Farhat Leal Hematocrit (Bld) [Volume fraction] 38.9 % Critically low 42.0-54.[address] [facility] Comment on above: Performed By: #### C BC ####[facility] Cabpnlzofn[address] [place], [place] [address]Dr. Madelynlorri Leal Hemoglobin (Bld) [Mass/Vol] 12.8 g/dL Critically low 14.0-18.0 The [facility] Comment on above: Performed By: #### C BC ####[facility] Rwoukadkmn5[address] [place], [place] [address]Dr. Farhat Leal IG # 0.10 10e3/ul Critically high 0.00-0.03 [facility] Comment on above: Performed By: #### C BC ####[facility] Kjlwsbkeuc270[address] [place], [place] [address]Dr. Madelynlorri Leal IG % 1.2 % Critically high 0.0-0.5 [facility] Comment on above: Performed By: #### C BC ####[facility] Kzagalebzh9669[address] [place], [place] [address]Dr. Farhat Leal LYMPH # 2.1 103/ul Normal 1.2-3.8 [facility] Comment on above: Performed By: #### C BC ####[facility] Sgaichqqqc888[address] [place], [place] [address]DrSkylar Leal Lymphocytes/100 WBC (Bld) 25.9 % Normal 20.5-60.0 [facility] Comment on above: Performed By: #### C BC ####[facility] Kvbmoegpai86[address] [place], [place] [address]DrSkylar Leal MANUAL DIFF REQ NO Normal [facility] Comment on above: Performed By: #### C BC ####[facility] Yrppolczgs032[address] [place], [place] [address]DrSkylar Leal MCH (RBC) [Entitic mass] 31.1 pg Normal 25.9-34.0 [facility] Comment on above: Performed By: #### C BC ####[facility] [address]mdllapeia[address] [place] [id number]. Farhat Leal MCHC (RBC) [Mass/Vol] 32.9 g/dL Normal 29.9-35.2 [facility] Comment on above: Performed By: #### C BC ####[facility] Odtrinysnv[address] [place] [id number]. Farhat Leal MCV (RBC) [Entitic vol] 94.6 fL Critically high 80.0-94.0 [facility] Comment on above: Performed By: #### C BC ####[facility] [address]gcotl[address] [place] [address]DrSkylar Farhat Leal MONO # 1.2 103/ul Critically high 0.3-0.8 [facility] Comment on above: Performed By: #### C BC ####[facility] Irbetumgln724[address] [place], [place] [address]Dr. Farhat Leal Monocytes/100 WBC (Bld) 14.1 % Critically high 1.7-12.0 [facility] Comment on above: Performed By: #### C BC ####[facility] Uszbnqrmgi457[address] [place], [place] [address]DrSkylar Farhat Leal NEUT # 4.4 103/ul Normal 1.4-6.5 [facility] Comment on above: Performed By: #### C BC ####[facility] [address]xfmdyhe40[address] [place] [address]DrSkylar Farhat Elvis Neutrophils/100 WBC (Bld) 54.2 % Normal 43.0-75.0 [facility] Comment on above: Performed By: #### C BC ####[facility] Tdbfusgmcv[address] [place], [place] [id number] Farhat Leal Platelet mean volume (Bld) [Entitic vol] 9.9 fL Normal 9.5-13.5 [facility] Comment on above: Performed By: #### C BC ####[facility] Rgegyyfgsc750[address] [place] [id number]. Farhat Elvis PLT 224 103/ul Normal 150-450 [facility] Comment on above: Performed By: #### C BC ####[facility] Epwpzmhdll5[address] [place] [address]Dr. Farhat Elal RBC 4.11 106/ul Critically low 4.70-6.10 [facility] Comment on above: Performed By: #### C BC ####[facility] Ivqnprnfti07[address] [place] [address]Dr. Farhat Elvis WBC 8.2 103/ul Normal 4.0-11.0 [facility] Comment on above: Performed By: #### C BC ####[facility] Xdwxfpdqym23[address] [place] [address]Dr. Madelynlorri Leal PROF CHEM 8 (BAS METB)on Anion gap [Moles/Vol] 9.6 mmol/L Normal [facility] Comment on above: Performed By: #### B MP ####[facility] Jor[address]hqea[address] [place] [address]Dr. Madelynlorri Leal Calcium [Mass/Vol] 8.6 mg/dL Normal 8.5-10.1 The [facility] Comment on above: Performed By: #### B MP ####[facility] Zqkvavdbmg[address] [place] [address]Dr. Madelynlorri Leal Chloride [Moles/Vol] 94 mmol/L Critically low 98-107 The [facility] Comment on above: Performed By: #### B MP ####[facility] Friickfsrb69[address] [place] [address]Dr. Farhat Leal CO2 [Moles/Vol] 28.1 mmol/L Normal 21.0-32.0 The [facility] Comment on above: Performed By: #### B MP ####[facility] Lmzoifjgpw3[address] [place] [address]Dr. Farhat Leal Creatinine [Mass/Vol] 1.91 mg/dL Critically high 0.70-1.[address] [facility] Comment on above: Performed By: #### B MP ####[facility] Pmgrivwxbf6280 [place] [address]Dr. Farhat Elvis EGFR-AF BURMESE 42 mL/min/1.73m2 Critically low >=[address] [facility] Comment on above: Performed By: #### B MP ####[facility] Xkhjplijcq46[address] [place] [address]Dr. Farhat Elvis EGFR-NON AF BURMESE 34 mL/min/1.73m2 Critically low >=[address] [facility] Comment on above: Performed By: #### B MP ####[facility] Ertarntdxb1549 [place] [address]Dr. Farhat Leal Glucose [Mass/Vol] 314 mg/dL Critically high 74-106 T [facility] Comment on above: Performed By: #### B MP ####[facility] Bvrtngkjdu1260[address] [place], [place] [address]Dr. Farhat Leal Potassium [Moles/Vol] 4.7 mmol/L Normal 3.5-5.[address] [facility] Comment on above: Performed By: #### B MP ####[facility] Xsadwpclwu7[address] [place], [place] [address]Dr. Farhat Leal Sodium [Moles/Vol] 127 mmol/L Critically low 136-145 [facility] Comment on above: Performed By: #### B MP ####[facility] Rsfdhjvqlu8524[address] [place], [place] [address]Dr. Farhat Leal Urea nitrogen [Mass/Vol] 79.0 mg/dL Critically high 7.0-18.[address] [facility] Comment on above: Result Comment: repe ated Performed By: #### B MP ####[facility] Cjymeaurtd44[address] [place] [address]Dr. Farhat Leal Urea nitrogen/Creatinine [Mass ratio] 41.4 mg/mg Normal [facility] Comment on above: Performed By: #### B MP ####[facility] Itzcpclstd3434[address] [place], [place] [address]Dr. Farhat Leal PTT HEPARIN MONITORon 2021 aPTT Coag (Bld) [Time] 42.7 s Normal 39.5-54.2 [facility] Comment on above: Performed By: #### P TTHEP ####[facility] Ezvyrgdhbh14[address] [place] [address]Dr. Farhat Leal aPTT Coag (Bld) [Time] 56.7 s Critically high 39.5-54. [address] [facility] Comment on above: Performed By: #### P TTHEP ####[facility] Tmfzmeuxdb049[address] [place], [place] [address]Dr. Farhat Leal CBC AUTO DIFFon 09-23-2021 BASO # 0.1 103/ul Normal 0.0-0.[address] [facility] Comment on above: Performed By: #### C BC ####[facility] Xllvzzaszm1725[address] [place], [place] [address]DrSkylar Leal Basophils/100 WBC (Bld) 0.6 % Normal 0.2-2.[address] [facility] Comment on above: Performed By: #### C BC ####[facility] Oukxusjimh[address] [place], [place] [address]DrSkylar Leal EO # 0.2 103/ul Normal 0.0-0.[address] [facility] Comment on above: Performed By: #### C BC ####[facility] Mwhqpgygpm[address] [place], [place] [address]DrSkylar Leal Eosinophils/100 WBC (Bld) 2.6 % Normal 0.9-7.[address] [facility] Comment on above: Performed By: #### C BC ####[facility] Uuqcquhviy[address] [place], [place] [address]DrSkylar Leal Erythrocyte distribution width (RBC) [Ratio] 12.4 % Normal 11.0-15.0 [facility] Comment on above: Performed By: #### C BC ####[facility] Klwkbfnjbs075[address] [place], [place] [address]DrSkylar Leal Hematocrit (Bld) [Volume fraction] 38.4 % Critically low 42.0-54.[address] [facility] Comment on above: Performed By: #### C BC ####[facility] Prlirxvsvn036[address] [place], [place] [address]DrSkylar Leal Hemoglobin (Bld) [Mass/Vol] 12.8 g/dL Critically low 14.0-18.0 [facility] Comment on above: Performed By: #### C BC ####[facility] Bopyzncnis[address] [place] [address]DrSkylar Leal IG # 0.06 10e3/ul Critically high 0.00-0.03 [facility] Comment on above: Performed By: #### C BC ####[facility] Pmdsajezok60[address] [place] [address]DrSkylar Leal IG % 0.8 % Critically high 0.0-0.5 [facility] Comment on above: Performed By: #### C BC ####[facility] Acwziebnrm406[address] [place], [place] [address]DrSkylar Leal LYMPH # 1.5 103/ul Normal 1.2-3.8 [facility] Comment on above: Performed By: #### C BC ####[facility] Ndbndmcbqp429[address] [place], [place] [address]DrSkylar Leal Lymphocytes/100 WBC (Bld) 19.7 % Critically low 20.5-60.0 [facility] Comment on above: Performed By: #### C BC ####[facility] Tsvijwlxfz94[address] [place], [place] [address]DrSkylar Leal MANUAL DIFF REQ NO Normal [facility] Comment on above: Performed By: #### C BC ####[facility] Iisawcvvtp2785[address] [place], [place] [address]DrSkylar Leal MCH (RBC) [Entitic mass] 31.6 pg Normal 25.9-34.0 The [facility] Comment on above: Performed By: #### C BC ####[facility] Xcqvcmokkp7315[address] [place], [place] [address]DrSkylar Leal MCHC (RBC) [Mass/Vol] 33.3 g/dL Normal 29.9-35.2 [facility] Comment on above: Performed By: #### C BC ####[facility] Wdpyhpsrue920[address] [place], [place] [address]DrSkylar Leal MCV (RBC) [Entitic vol] 94.8 fL Critically high 80.0-94.0 [facility] Comment on above: Performed By: #### C BC ####[facility] Oxrfkciseh40[address] [place] [address]DrSkylar Farhat Leal MONO # 1.0 103/ul Critically high 0.3-0.8 [facility] Comment on above: Performed By: #### C BC ####[facility] Pujpijadej8935[address] [place], [place] [address]DrSkylar Joshilorri Elvis Monocytes/100 WBC (Bld) 13.0 % Critically high 1.7-12.0 [facility] Comment on above: Performed By: #### C BC ####[facility] Qatpqywiep1217[address] [place], [place] [address]Dr. Farhat Leal NEUT # 4.9 103/ul Normal 1.4-6.5 The [facility] Comment on above: Performed By: #### C BC ####[facility] Iipzfglnoc4024[address] [place], [place] [address]Dr. Farhat Leal Neutrophils/100 WBC (Bld) 63.3 % Normal 43.0-75.0 [facility] Comment on above: Performed By: #### C BC ####[facility] Tnimivsucf6225[address] [place], [place] [address]DrSkylar Joshilorri Elvis Platelet mean volume (Bld) [Entitic vol] 10.7 fL Normal 9.5-13.5 [facility] Comment on above: Performed By: #### C BC ####[facility] Dabzcekysq499[address] [place], [place] [address]Dr. Farhat Leal PLT 205 103/ul Normal 150-450 [facility] Comment on above: Performed By: #### C BC ####[facility] Naucbcnqqz125[address] [place], [place] [address]DrSkylar Leal RBC 4.05 106/ul Critically low 4.70-6.10 [facility] Comment on above: Performed By: #### C BC ####[facility] Hlkqoxqsyx2717[address] [place], [place] [address]DrSkylar Leal WBC 7.7 103/ul Normal 4.0-11.[address] [facility] Comment on above: Performed By: #### C BC ####[facility] Hkxvumedii090[address] [place], [place] [address]Dr. Farhat Leal PROF CHEM 8 (BAS METB)on Anion gap [Moles/Vol] 15.5 mmol/L Normal [facility] Comment on above: Performed By: #### B MP ####[facility] Whzymnjudp2649[address] [place], [place] [address]Dr. Farhat Elvis Calcium [Mass/Vol] 9.1 mg/dL Normal 8.5-10.1 [facility] Comment on above: Performed By: #### B MP ####[facility] Vrdoaggpst2636[address] [place], [place] [address]Dr. Farhat Leal Chloride [Moles/Vol] 92 mmol/L Critically low 98-[address] [facility] Comment on above: Performed By: #### B MP ####[facility] Zivrgcwzkl17[address] [place], [place] [address]Dr. Farhat Elvis CO2 [Moles/Vol] 28.5 mmol/L Normal 21.0-32.0 [facility] Comment on above: Performed By: #### B MP ####[facility] Vcfsiggaws8439[address] [place], [place] [address]Dr. Farhat Elvis Creatinine [Mass/Vol] 1.84 mg/dL Critically high 0.70-1.[address] [facility] Comment on above: Performed By: #### B MP ####[facility] Aaucxnehci410[address] [place], [place] [address]Dr. Farhat Leal EGFR-AF BURMESE 44 mL/min/1.73m2 Critically low >=60 The [facility] Comment on above: Performed By: #### B MP ####[facility] Vwpbaejmsf[address] [place], [place] [address]Dr. Farhat Leal EGFR-NON AF BURMESE 36 mL/min/1.73m2 Critically low >=60 The [facility] Comment on above: Performed By: #### B MP ####[facility] Hjaovliivg[address] [place] [address]Dr. Farhat Leal Glucose [Mass/Vol] 267 mg/dL Critically high 74-106 T [facility] Comment on above: Performed By: #### B MP ####[facility] Jauyjwrcmg374[address] [place], [place] [address]Dr. Farhat Leal Potassium [Moles/Vol] 5.0 mmol/L Normal 3.5-5.[address] [facility] Comment on above: Performed By: #### B MP ####[facility] Mczmprvyni6[address] [place], [place] [address]Dr. Farhat Leal Sodium [Moles/Vol] 131 mmol/L Critically low 136-145 Th e [facility] Comment on above: Performed By: #### B MP ####[facility] Vpdmtepfub[address] [place], [place] [address]Dr. Farhat Leal Urea nitrogen [Mass/Vol] 76.0 mg/dL Critically high 7.0-18.[address] [facility] Comment on above: Performed By: #### B MP ####[facility] Pmlokwpqbm[address] [place], [place] [address]Dr. Farhat Leal Urea nitrogen/Creatinine [Mass ratio] 41.3 mg/mg Normal The [facility] Comment on above: Performed By: #### B MP ####[facility] Usjbmgnowb14[address] [place], [place] [address]Dr. Farhat Leal PTT HEPARIN MONITORon 2021 aPTT Coag (Bld) [Time] 57.2 s Critically high 39.5-54. [address] [facility] Comment on above: Performed By: #### P TTHEP ####[facility] Jkorfqqeqo9[address] [place], [place] [address]Dr. Farhat Leal aPTT Coag (Bld) [Time] 74.7 s Critically high 39.5-54. 2 The [facility] Comment on above: Result Comment: repe ated Performed By: #### P TTHEP ####[facility] Akowqazdcv385[address] [place], [place] [address]Dr. Farhat Leal aPTT Coag (Bld) [Time] 45.5 s Normal 39.5-54.2 Th e [facility] Comment on above: Performed By: #### P TTHEP ####[facility] Kqxivtfsuz8[address] [place] [address]Dr. Farhat Elvis CBC AUTO DIFFon 09-22-2021 BASO # 0.1 103/ul Normal 0.0-0.[address] [facility] Comment on above: Performed By: #### C BC ####[facility] Ahgfbmwhwz925[address] [place], [place] [address]Dr. Farhat Leal Basophils/100 WBC (Bld) 0.7 % Normal 0.2-2.[address] [facility] Comment on above: Performed By: #### C BC ####[facility] Snzzukqpuc88[address] [place], [place] [address]Dr. Madelynlorri Elvis EO # 0.3 103/ul Normal 0.0-0.[address] [facility] Comment on above: Performed By: #### C BC ####[facility] Nfndyuknwh7[address] [place], [place] [address]Dr. Farhat Leal Eosinophils/100 WBC (Bld) 3.2 % Normal 0.9-7.[address] [facility] Comment on above: Performed By: #### C BC ####[facility] Nnycdzgqsg434[address] [place], [place] [address]Dr. Farhat Elvis Erythrocyte distribution width (RBC) [Ratio] 12.5 % Normal 11.0-15.[address] [facility] Comment on above: Performed By: #### C BC ####[facility] Xxloynxgge666[address] [place], [place] [address]Dr. Farhat Leal Hematocrit (Bld) [Volume fraction] 40.5 % Critically low 42.0-54.[address] [facility] Comment on above: Performed By: #### C BC ####[facility] Adgegmyrtx519[address] [place], [place] [address]Dr. Farhat Leal Hemoglobin (Bld) [Mass/Vol] 13.4 g/dL Critically low 14.0-18.[address] [facility] Comment on above: Performed By: #### C BC ####[facility] Wdznippxdu5[address] [place] [address]Dr. Farhat Leal IG # 0.11 10e3/ul Critically high 0.00-0.03 [facility] Comment on above: Performed By: #### C BC ####[facility] Syvetkkvzc24[address] [place] [address]Dr. Farhat Leal IG % 1.3 % Critically high 0.0-0.5 [facility] Comment on above: Performed By: #### C BC ####[facility] Oxcmkdadtk23[address] [place], [place] [address]Dr. Farhat Elvis LYMPH # 1.7 103/ul Normal 1.2-3.8 The [facility] Comment on above: Performed By: #### C BC ####[facility] Ilnrypdjox235[address] [place], [place] [address]Dr. Farhat Elvis Lymphocytes/100 WBC (Bld) 19.6 % Critically low 20.5-60.[address] [facility] Comment on above: Performed By: #### C BC ####[facility] Vlyaltoecf[address] [place], [place] [address]DrSkylar Farhat Leal MANUAL DIFF REQ NO Normal [facility] Comment on above: Performed By: #### C BC ####[facility] Gdpsocdwcv1575[address] [place], [place] [address]Dr. Farhat Leal MCH (RBC) [Entitic mass] 31.1 pg Normal 25.9-34.0 The [facility] Comment on above: Performed By: #### C BC ####[facility] Hcryhreram[address] [place], [place] [address]DrSkylar Farhat Leal MCHC (RBC) [Mass/Vol] 33.1 g/dL Normal 29.9-35.2 The [facility] Comment on above: Performed By: #### C BC ####[facility] Cryfychhtq64[address] [place], [place] [address]DrSkylar Farhat Leal MCV (RBC) [Entitic vol] 94.0 fL Normal 80.0-94.0 The [facility] Comment on above: Performed By: #### C BC ####[facility] Kjfacukqil8[address] [place], [place] [address]Dr. Farhat Leal MONO # 1.1 103/ul Critically high 0.3-0.8 [facility] Comment on above: Performed By: #### C BC ####[facility] Sptstlqvnk57[address] [place] [address]Dr. Farhat Leal Monocytes/100 WBC (Bld) 12.7 % Critically high 1.7-12.0 The [facility] Comment on above: Performed By: #### C BC ####[facility] [address]uiwvqxtk6[address] [place] [address]Dr. Farhat Leal NEUT # 5.3 103/ul Normal 1.4-6.5 The [facility] Comment on above: Performed By: #### C BC ####[facility] Ierqujryew35[address] [place] [address]Dr. Farhat Elvis Neutrophils/100 WBC (Bld) 62.5 % Normal 43.0-75.0 The [facility] Comment on above: Performed By: #### C BC ####[facility] Gyahnvirap[address] [place], [place] [address]Dr. Farhat Leal Platelet mean volume (Bld) [Entitic vol] 10.1 fL Normal 9.5-13.5 The [facility] Comment on above: Performed By: #### C BC ####[facility] Xnnnmwvmzm[address] [place], [place] [address]Dr. Farhat Elvis PLT 220 103/ul Normal 150-450 The [facility] Comment on above: Performed By: #### C BC ####[facility] Lcccmplrmj[address] [place], [place] [address]Dr. Farhat Leal RBC 4.31 106/ul Critically low 4.70-6.10 [facility] Comment on above: Performed By: #### C BC ####[facility] Cecqmtjbsn030[address] [place] [address]Dr. Madelynlorri Elvis WBC 8.4 103/ul Normal 4.0-11.0 [facility] Comment on above: Performed By: #### C BC ####[facility] Lzaakjynuv[address] [place] [address]Dr. Farhat Leal PROF CHEM 8 (BAS METB)on Anion gap [Moles/Vol] 15.5 mmol/L Normal [facility] Comment on above: Performed By: #### B MP ####[facility] Xtpvuhvnvl6[address] [place] [address]Dr. Farhat Leal Calcium [Mass/Vol] 8.9 mg/dL Normal 8.5-10.1 [facility] Comment on above: Performed By: #### B MP ####[facility] Onjamksgai28[address] [place] [address]Dr. Farhat Leal Chloride [Moles/Vol] 92 mmol/L Critically low 98-[address] [facility] Comment on above: Performed By: #### B MP ####[facility] Dcfhrvxkcs[address] [place], [place] [address]Dr. Farhat Leal CO2 [Moles/Vol] 25.7 mmol/L Normal 21.0-32.0 [facility] Comment on above: Performed By: #### B MP ####[facility] Yyflfzvegp[address] [place], [place] [address]Dr. Farhat Leal Creatinine [Mass/Vol] 1.85 mg/dL Critically high 0.70-1.[address] [facility] Comment on above: Performed By: #### B MP ####[facility] Dlfjinpbuc[address] [place], [place] [address]Dr. Farhat Leal EGFR-AF BURMESE 43 mL/min/1.73m2 Critically low >=[address] [facility] Comment on above: Performed By: #### B MP ####[facility] Iqmjvclfjo26[address] [place], [place] [address]Dr. Farhat Leal EGFR-NON AF BURMESE 36 mL/min/1.73m2 Critically low >=[address] [facility] Comment on above: Performed By: #### B MP ####[facility] Ruiivsouak27[address] [place], [place] [address]Dr. Farhat Leal Glucose [Mass/Vol] 410 mg/dL Critically high 74-106 [facility] Comment on above: Performed By: #### B MP ####[facility] Edursqwgob275[address] [place], [place] [address]Dr. Farhat Leal Potassium [Moles/Vol] 5.2 mmol/L Critically high 3.5-5.[address] [facility] Comment on above: Performed By: #### B MP ####[facility] Ksuidjeofv380[address] [place], [place] [address]Dr. Farhat Leal Sodium [Moles/Vol] 128 mmol/L Critically low 136-145 [facility] Comment on above: Performed By: #### B MP ####[facility] Cynwfvvbyz6548[address] [place], [place] [address]Dr. Farhat Leal Urea nitrogen [Mass/Vol] 75.0 mg/dL Critically high 7.0-18.[address] [facility] Comment on above: Performed By: #### B MP ####[facility] Xsuajzsund438[address] [place], [place] [address]Dr. Farhat Leal Urea nitrogen/Creatinine [Mass ratio] 40.5 mg/mg Normal [facility] Comment on above: Performed By: #### B MP ####[facility] Zqosstczoe5259[address] [place], [place] [address]Dr. Farhat Leal PTT HEPARIN MONITORon 2021 aPTT Coag (Bld) [Time] 51.2 s Normal 39.5-54.2 [facility] Comment on above: Performed By: #### P TTHEP ####[facility] Wtavfgrmap376[address] [place], [place] [address]Dr. Farhat Leal aPTT Coag (Bld) [Time] 55.6 s Critically high 39.5-54. [address] [facility] Comment on above: Performed By: #### P TTHEP ####[facility] Blqfxgpllx30[address] [place], [place] [address]Dr. Farhat Leal aPTT Coag (Bld) [Time] 46.1 s Normal 39.5-54.2 [facility] Comment on above: Performed By: #### P TTHEP ####[facility] Mwrygpenov[address] [place], [place] [address]Dr. Farhat Leal aPTT Coag (Bld) [Time] 53.8 s Normal 39.5-54.2 Th e [facility] Comment on above: Performed By: #### P TTHEP ####[facility] Gqqggcbeeg939[address] [place], [place] [address]Dr. Farhat Elvis CBC AUTO DIFFon 09-21-2021 BASO # 0.1 103/ul Normal 0.0-0.[address] [facility] Comment on above: Performed By: #### C BC ####[facility] Loktqlnesj2465[address] [place], [place] [address]Dr. Farhat Leal Basophils/100 WBC (Bld) 0.8 % Normal 0.2-2.0 [facility] Comment on above: Performed By: #### C BC ####[facility] Axcbeuaqoa9926[address] [place], [place] [address]Dr. Farhat Leal EO # 0.4 103/ul Normal 0.0-0.7 [facility] Comment on above: Performed By: #### C BC ####[facility] Uzaspeqhub399[address] [place], [place] [address]Dr. Farhat Leal Eosinophils/100 WBC (Bld) 4.3 % Normal 0.9-7.0 [facility] Comment on above: Performed By: #### C BC ####[facility] Aidtdlppgb6730[address] [place], [place] [address]Dr. Farhat Leal Erythrocyte distribution width (RBC) [Ratio] 12.5 % Normal 11.0-15.0 [facility] Comment on above: Performed By: #### C BC ####[facility] Mthnbzqnmj606[address] [place], [place] [address]Dr. Farhat Leal Hematocrit (Bld) [Volume fraction] 40.8 % Critically low 42.0-54.0 [facility] Comment on above: Performed By: #### C BC ####[facility] Xrxwlxerin147[address] [place], [place] [address]Dr. Farhat Leal Hemoglobin (Bld) [Mass/Vol] 13.5 g/dL Critically low 14.0-18.0 [facility] Comment on above: Performed By: #### C BC ####[facility] Ymwqypibit36[address] [place] [id number]. Farhat Leal IG # 0.10 10e3/ul Critically high 0.00-0.03 [facility] Comment on above: Performed By: #### C BC ####[facility] Qluoeiyxcw56[address] [place] [address]Dr. Farhat Leal IG % 1.2 % Critically high 0.0-0.5 [facility] Comment on above: Performed By: #### C BC ####[facility] Idfpgttwqi1885 [place] [address]Dr. Farhat Elvis LYMPH # 1.3 103/ul Normal 1.2-3.8 [facility] Comment on above: Performed By: #### C BC ####[facility] Fwqbpnjaex5[address] [place] [address]Dr. Farhat Elvis Lymphocytes/100 WBC (Bld) 15.4 % Critically low 20.5-60.0 [facility] Comment on above: Performed By: #### C BC ####[facility] Nozzsmzkdf9634 [place] [address]Dr. Farhat Elvis MANUAL DIFF REQ NO Normal [facility] Comment on above: Performed By: #### C BC ####[facility] Rsfdbntodp9704 [place] [address]Dr. Farhat Leal MCH (RBC) [Entitic mass] 31.0 pg Normal 25.9-34.0 [facility] Comment on above: Performed By: #### C BC ####[facility] Mbujlqzahm9[address] [place] [address]Dr. Farhat Leal MCHC (RBC) [Mass/Vol] 33.1 g/dL Normal 29.9-35.2 [facility] Comment on above: Performed By: #### C BC ####[facility] Anbxoanzip2760[address] [place], [place] [address]Dr. Farhat Leal MCV (RBC) [Entitic vol] 93.8 fL Normal 80.0-94.0 [facility] Comment on above: Performed By: #### C BC ####[facility] [address] [place] [address]Iu. Farhat Leal MONO # 1.2 103/ul Critically high 0.3-0.8 [facility] Comment on above: Performed By: #### C BC ####[facility] Gccpqsofbe64[address] [place] [address]Dr. Farhat Elvis Monocytes/100 WBC (Bld) 13.6 % Critically high 1.7-12.0 [facility] Comment on above: Performed By: #### C BC ####[facility] Rbclqnanqf[address] [place] [address]Dr. Farhat Leal NEUT # 5.5 103/ul Normal 1.4-6.5 [facility] Comment on above: Performed By: #### C BC ####[facility] Ttfebddsaj197[address] [place], [place] [address]Dr. Farhat Leal Neutrophils/100 WBC (Bld) 64.7 % Normal 43.0-75.0 [facility] Comment on above: Performed By: #### C BC ####[facility] Iwqptpcfcr872[address] [place], [place] [address]Dr. Farhat Elvis Platelet mean volume (Bld) [Entitic vol] 9.8 fL Normal 9.5-13.5 [facility] Comment on above: Performed By: #### C BC ####[facility] Abjsrywpnw737[address] [place], [place] [address]Dr. Madelynlorri Elvis PLT 206 103/ul Normal 150-450 [facility] Comment on above: Performed By: #### C BC ####[facility] Itpbwapgzn6559[address] [place], [place] [address]Dr. Farhat Elvis RBC 4.35 106/ul Critically low 4.70-6.10 [facility] Comment on above: Performed By: #### C BC ####[facility] Pqmbfdeqqr03[address] [place], [place] [address]Dr. Madelynlorri Elvis WBC 8.4 103/ul Normal 4.0-11.0 [facility] Comment on above: Performed By: #### C BC ####[facility] Uhnvdofpqu223[address] [place], [place] [address]Dr. Farhat Leal PROF CHEM 8 (BAS METB)on Anion gap [Moles/Vol] 12.3 mmol/L Normal [facility] Comment on above: Performed By: #### B MP ####[facility] Uezhnuoady13[address] [place] [address]Dr. Farhat Leal Calcium [Mass/Vol] 8.6 mg/dL Normal 8.5-10.1 [facility] Comment on above: Performed By: #### B MP ####[facility] Ndfucyuvzq9146 [place] [address]Dr. Farhat Leal Chloride [Moles/Vol] 94 mmol/L Critically low 98-[address] [facility] Comment on above: Performed By: #### B MP ####[facility] Dbcugjrwpe776[address] [place], [place] [address]Dr. Farhat Leal CO2 [Moles/Vol] 30.8 mmol/L Normal 21.0-32.0 [facility] Comment on above: Performed By: #### B MP ####[facility] Bnvqvkowhx964[address] [place], [place] [address]Dr. Farhat Leal Creatinine [Mass/Vol] 1.99 mg/dL Critically high 0.70-1.[address] [facility] Comment on above: Performed By: #### B MP ####[facility] Rdfnotiomp009[address] [place], [place] [address]Dr. Farhat Leal EGFR-AF BURMESE 40 mL/min/1.73m2 Critically low >=[address] [facility] Comment on above: Performed By: #### B MP ####[facility] Xpqvvtuzzs84[address] [place] [address]Dr. Farhat Leal EGFR-NON AF BURMESE 33 mL/min/1.73m2 Critically low >=[address] [facility] Comment on above: Performed By: #### B MP ####[facility] Lwulgncgtt0889 [place] [address]Dr. Farhat Leal Glucose [Mass/Vol] 264 mg/dL Critically high 74-106 [facility] Comment on above: Performed By: #### B MP ####[facility] Mebkkqggyx7578 [place] [address]Dr. Farhat Leal Potassium [Moles/Vol] 5.1 mmol/L Normal 3.5-5.[address] [facility] Comment on above: Performed By: #### B MP ####[facility] Gpkajeccrm817[address] [place], [place] [address]Dr. Farhat Leal Sodium [Moles/Vol] 132 mmol/L Critically low 136-145 [facility] Comment on above: Performed By: #### B MP ####[facility] Ntdyqxgbcg37[address] [place], [place] [address]Dr. Farhat Leal Urea nitrogen [Mass/Vol] 72.0 mg/dL Critically high 7.0-18.[address] [facility] Comment on above: Performed By: #### B MP ####[facility] Kjjvfmbymd880[address] [place], [place] [address]Dr. Farhat Leal Urea nitrogen/Creatinine [Mass ratio] 36.2 mg/mg Normal [facility] Comment on above: Performed By: #### B MP ####[facility] Xybafnhrii425[address] [place], [place] [address]Dr. Farhat Leal PTT HEPARIN MONITORon 2021 aPTT Coag (Bld) [Time] 45.3 s Normal 39.5-54.2 [facility] Comment on above: Performed By: #### P TTHEP ####[facility] Vsgcshizit334[address] [place], [place] [address]Dr. Farhat Leal aPTT Coag (Bld) [Time] 68.0 s Critically high 39.5-54. [address] [facility] Comment on above: Performed By: #### P TTHEP ####[facility] Rtotxgavlk7617[address] [place], [place] [address]Dr. Farhat Leal aPTT Coag (Bld) [Time] 69.4 s Critically high 39.5-54. [address] [facility] Comment on above: Performed By: #### P TTHEP ####[facility] Pqzdltdlkp475[address] [place], [place] [address]Dr. Farhat Leal aPTT Coag (Bld) [Time] 53.5 s Normal 39.5-54.2 [facility] Comment on above: Performed By: #### P TTHEP ####[facility] Clfgezftnu64[address] [place] [address]Dr. Farhat Elvis aPTT Coag (Bld) [Time] 126.9 s Critically high 39.5-54. [address] [facility] Comment on above: Performed By: #### P TTHEP ####[facility] Yqpanpmsek74[address] [place], [place] [address]Dr. Farhat Leal CBC AUTO DIFFon 09-20-2021 BASO # 0.1 103/ul Normal 0.0-0.1 [facility] Comment on above: Performed By: #### C BC ####[facility] Ibtumboheq040[address] [place], [place] [address]Dr. Farhat Leal Basophils/100 WBC (Bld) 0.7 % Normal 0.2-2.0 The [facility] Comment on above: Performed By: #### C BC ####[facility] Zekrwfsqdu0633[address] [place], [place] [address]Dr. Farhat Leal EO # 0.2 103/ul Normal 0.0-0.7 [facility] Comment on above: Performed By: #### C BC ####[facility] Cwwsvtkjxh146[address] [place], [place] [address]Dr. Farhat Leal Eosinophils/100 WBC (Bld) 3.2 % Normal 0.9-7.0 The [facility] Comment on above: Performed By: #### C BC ####[facility] Ogkfbyctyv9[address] [place], [place] [address]Dr. Farhat Leal Erythrocyte distribution width (RBC) [Ratio] 12.4 % Normal 11.0-15.0 The [facility] Comment on above: Performed By: #### C BC ####[facility] Ffxurpidcr7509[address] [place], [place] [address]Dr. Farhat Leal Hematocrit (Bld) [Volume fraction] 40.1 % Critically low 42.0-54.0 The [facility] Comment on above: Performed By: #### C BC ####[facility] Oexempgqfe56[address] [place] [id number]. Farhat Leal Hemoglobin (Bld) [Mass/Vol] 13.4 g/dL Critically low 14.0-18.0 The [facility] Comment on above: Performed By: #### C BC ####[facility] Jjvakspfom1424 [place] [address]Dr. Farhat Leal IG # 0.08 10e3/ul Critically high 0.00-0.03 [facility] Comment on above: Performed By: #### C BC ####[facility] Ghqywkaqcj7335 [place] [address]Dr. Farhat Leal IG % 1.1 % Critically high 0.0-0.5 [facility] Comment on above: Performed By: #### C BC ####[facility] Ptbmfjsfjn4853 [place] [address]Dr. Farhat Leal LYMPH # 1.3 103/ul Normal 1.2-3.8 The [facility] Comment on above: Performed By: #### C BC ####[facility] Dfvipuyoro8999 [place] [address]Dr. Farhat Leal Lymphocytes/100 WBC (Bld) 17.3 % Critically low 20.5-60.0 The [facility] Comment on above: Performed By: #### C BC ####[facility] Qkkfxbsqgz9380 [place] [address]Dr. Farhat Leal MANUAL DIFF REQ NO Normal [facility] Comment on above: Performed By: #### C BC ####[facility] Wlqpkecxez9642 [place] [address]Dr. Farhat Leal MCH (RBC) [Entitic mass] 31.2 pg Normal 25.9-34.0 The [facility] Comment on above: Performed By: #### C BC ####[facility] Vzwkcftdyo5837 [place] [address]Dr. Farhat Leal MCHC (RBC) [Mass/Vol] 33.4 g/dL Normal 29.9-35.2 The [facility] Comment on above: Performed By: #### C BC ####[facility] Nwkpgqdyxz4364 [place] [address]Dr. Farhat Leal MCV (RBC) [Entitic vol] 93.3 fL Normal 80.0-94.0 The [facility] Comment on above: Performed By: #### C BC ####[facility] Xelclsjkqx2951 [place] [address]Dr. Farhat Leal MONO # 0.9 103/ul Critically high 0.3-0.8 [facility] Comment on above: Performed By: #### C BC ####[facility] Rhplssecyw0223 [place] [address]Dr. Farhat Leal Monocytes/100 WBC (Bld) 12.4 % Critically high 1.7-12.0 The [facility] Comment on above: Performed By: #### C BC ####[facility] Sagsedcqbm[address] [place], [place] [address]Dr. Farhat Leal NEUT # 4.7 103/ul Normal 1.4-6.5 The [facility] Comment on above: Performed By: #### C BC ####[facility] Xwybkwxtth[address] [place], [place] [address]Dr. Farhat Leal Neutrophils/100 WBC (Bld) 65.3 % Normal 43.0-75.0 The [facility] Comment on above: Performed By: #### C BC ####[facility] Tntbxbmbmj44[address] [place], [place] [address]Dr. Farhat Leal Platelet mean volume (Bld) [Entitic vol] 9.9 fL Normal 9.5-13.5 The [facility] Comment on above: Performed By: #### C BC ####[facility] Qwfmnogsyo2049 [place] [address]Dr. Farhat Leal PLT 180 103/ul Normal 150-450 [facility] Comment on above: Performed By: #### C BC ####[facility] Xnqiugkvsn[address] [place], [place] [address]Dr. Farhat Leal RBC 4.30 106/ul Critically low 4.70-6.10 [facility] Comment on above: Performed By: #### C BC ####[facility] Rchcryyfba2185 [place] [address]Dr. Farhat Leal WBC 7.2 103/ul Normal 4.0-11.0 The [facility] Comment on above: Performed By: #### C BC ####[facility] Sekxvhqkvj[address] [place], [place] [address]Dr. Farhat Leal PTT HEPARIN MONITORon 2021 aPTT Coag (Bld) [Time] 26.7 s Critically low 39.5-54.2 The [facility] Comment on above: Performed By: #### P TTHEP ####[facility] Pyzqknslda514[address] [place], [place] [address]Dr. Farhat Leal aPTT Coag (Bld) [Time] 121.0 s Critically high 39.5-54. 2 [facility] Comment on above: Performed By: #### P TTHEP ####[facility] Tskhcbaorn[address] [place], [place] [address]Dr. Farhat Leal aPTT Coag (Bld) [Time] 27.6 s Critically low 39.5-54.2 The [facility] Comment on above: Performed By: #### P TTHEP ####[facility] Qzhkgabxma55[address] [place], [place] [address]Dr. Farhat Leal aPTT Coag (Bld) [Time] 139.0 s Critically high 39.5-54. 2 The [facility] Comment on above: Performed By: #### P TTHEP ####[facility] Skthnzdjks[address] [place], [place] [address]Dr. Farhat Leal CBC AUTO DIFFon 09-19-2021 BASO # 0.0 103/ul Normal 0.0-0.1 The [facility] Comment on above: Performed By: #### C BC ####[facility] Egxhzlknjg67[address] [place], [place] [address]Dr. Farhat Leal Basophils/100 WBC (Bld) 0.5 % Normal 0.2-2.0 The [facility] Comment on above: Performed By: #### C BC ####[facility] Mmkggblahz211[address] [place], [place] [address]Dr. Farhat Leal EO # 0.2 103/ul Normal 0.0-0.7 The [facility] Comment on above: Performed By: #### C BC ####[facility] Brrnqsrnio4504 [place] [phone]. Farhat Leal Eosinophils/100 WBC (Bld) 2.6 % Normal 0.9-7.0 The [facility] Comment on above: Performed By: #### C BC ####[facility] Uqhyhgkyzm30[address] [place] [address]Dr. Farhat Leal Erythrocyte distribution width (RBC) [Ratio] 12.5 % Normal 11.0-15.0 The [facility] Comment on above: Performed By: #### C BC ####[facility] Qynsdgleud1275 [place] [address]Dr. Farhat Leal Hematocrit (Bld) [Volume fraction] 39.2 % Critically low 42.0-54.0 The [facility] Comment on above: Performed By: #### C BC ####[facility] Jbmnostpcl045[address] [place], [place] [address]Dr. Farhat Leal Hemoglobin (Bld) [Mass/Vol] 13.3 g/dL Critically low 14.0-18.0 The [facility] Comment on above: Performed By: #### C BC ####[facility] Arzrkupfsr2474 [place] [address]Dr. Farhat Leal IG # 0.08 10e3/ul Critically high 0.00-0.03 [facility] Comment on above: Performed By: #### C BC ####[facility] Jyipavikvg3968 [place] [id number]. Farhat Leal IG % 0.9 % Critically high 0.0-0.5 [facility] Comment on above: Performed By: #### C BC ####[facility] Havizjegor[address] [place], [place] [address]Dr. Farhat Leal LYMPH # 1.5 103/ul Normal 1.2-3.8 The [facility] Comment on above: Performed By: #### C BC ####[facility] Fhzmghkprt[address] [place], [place] [address]Dr. Farhat Leal Lymphocytes/100 WBC (Bld) 17.2 % Critically low 20.5-60.0 The [facility] Comment on above: Performed By: #### C BC ####[facility] Tzljryihvn[address] [place] [address]Dr. Farhat Leal MANUAL DIFF REQ NO Normal [facility] Comment on above: Performed By: #### C BC ####[facility] Nifeozuwyx6203 [place] [address]Dr. Farhat Leal MCH (RBC) [Entitic mass] 31.7 pg Normal 25.9-34.0 The [facility] Comment on above: Performed By: #### C BC ####[facility] Hehqoztigr[address] [place], [place] [address]Dr. Farhat Leal MCHC (RBC) [Mass/Vol] 33.9 g/dL Normal 29.9-35.2 The [facility] Comment on above: Performed By: #### C BC ####[facility] X[address]argzotx[address] [place], [place] [address]Dr. Farhat Leal MCV (RBC) [Entitic vol] 93.3 fL Normal 80.0-94.0 The [facility] Comment on above: Performed By: #### C BC ####[facility] Padwewxstm[address] [place], [place] [address]Dr. Farhat Leal MONO # 1.2 103/ul Critically high 0.3-0.8 [facility] Comment on above: Performed By: #### C BC ####[facility] Tcgwqufbjo106[address] [place], [place] [address]Dr. Farhat Leal Monocytes/100 WBC (Bld) 13.7 % Critically high 1.7-12.0 The [facility] Comment on above: Performed By: #### C BC ####[facility] Tjwasguspc85[address] [place], [place] [address]Dr. Farhat Leal NEUT # 5.5 103/ul Normal 1.4-6.5 The [facility] Comment on above: Performed By: #### C BC ####[facility] Iwtwyrbcvv995[address] [place], [place] [address]Dr. Farhat Leal Neutrophils/100 WBC (Bld) 65.1 % Normal 43.0-75.[address] [facility] Comment on above: Performed By: #### C BC ####[facility] Xaplqjoiob[address] [place] [address]Dr. Farhat Leal Platelet mean volume (Bld) [Entitic vol] 9.6 fL Normal 9.5-13.[address] [facility] Comment on above: Performed By: #### C BC ####[facility] Jdknmxayom8346 [place] [address]Dr. Farhat Leal PLT 163 103/ul Normal 150-[address] [facility] Comment on above: Performed By: #### C BC ####[facility] Qkbjsersoa0721 [place] [address]Dr. Farhat Leal RBC 4.20 106/ul Critically low 4.70-6.10 [facility] Comment on above: Performed By: #### C BC ####[facility] Evlbiwcvnj[address] [place], [place] [address]Dr. Farhat Leal WBC 8.4 103/ul Normal 4.0-11.[address] [facility] Comment on above: Performed By: #### C BC ####[facility] Ugljkdpmxa8[address] [place] [address]Dr. Farhat Leal POINT OF CARE GLUCOSEon Glucose [Mass/Vol] 300 mg/dL Critically high 74-106 [facility] Comment on above: Performed By: #### P OCGLUC ####[facility] Tqecmysary3923[address] [place], [place] [address]Dr. Farhat Elvis POTASSIUMon 09-19-2021 Potassium [Moles/Vol] 4.9 mmol/L Normal 3.5-5.1 The [facility] Comment on above: Performed By: #### K ####[facility] Jamxovpeqa650[address] [place], [place] [address]Dr. Farhat eLal PTT HEPARIN MONITORon 2021 aPTT Coag (Bld) [Time] 23.4 s Critically low 39.5-54.[address] [facility] Comment on above: Result Comment: repe ated Performed By: #### P TTHEP ####[facility] Kccletgtkn386[address] [place], [place] [address]Dr. Farhat Leal aPTT Coag (Bld) [Time] 101.2 s Critically high 39.5-54. [address] [facility] Comment on above: Performed By: #### P TTHEP ####[facility] Cmkczbqtzz417[address] [place], [place] [address]Dr. Farhat Leal aPTT Coag (Bld) [Time] 81.0 s Critically high 39.5-54. 2 The [facility] Comment on above: Result Comment: Test Repeated. Critical Value Verified Performed By: #### P TTHEP ####[facility] Gsxtftwhwq8414[address] [place], [place] [address]Dr. Farhat Leal CBC AUTO DIFFon 09-18-2021 BASO # 0.0 103/ul Normal 0.0-0.[address] [facility] Comment on above: Performed By: #### C BC ####[facility] Wkmjwmegrf622[address] [place], [place] [address]Dr. Madelynlorri Leal Basophils/100 WBC (Bld) 0.4 % Normal 0.2-2.0 The [facility] Comment on above: Performed By: #### C BC ####[facility] Pgosymdzwt0718[address] [place], [place] [address]Dr. Farhat Leal EO # 0.1 103/ul Normal 0.0-0.7 The [facility] Comment on above: Performed By: #### C BC ####[facility] Nkunvtarwk[address] [place], [place] [address]Dr. Madelynlorri Leal Eosinophils/100 WBC (Bld) 0.8 % Critically low 0.9-7.0 The [facility] Comment on above: Performed By: #### C BC ####[facility] Vmdtlmzheo33[address] [place], [place] [address]Dr. Farhat Leal Erythrocyte distribution width (RBC) [Ratio] 12.4 % Normal 11.0-15.0 The [facility] Comment on above: Performed By: #### C BC ####[facility] [address]uuxhappkd[address] [place] [address]Dr. Madelynlorri Leal Hematocrit (Bld) [Volume fraction] 41.7 % Critically low 42.0-54.0 The [facility] Comment on above: Performed By: #### C BC ####[facility] Ptyhhnmkgr26[address] [place] [address]Dr. Farhat Leal Hemoglobin (Bld) [Mass/Vol] 14.1 g/dL Normal 14.0-18.0 The [facility] Comment on above: Performed By: #### C BC ####[facility] Bsoagjfvoi22[address] [place] [address]Dr. Farhat Leal IG # 0.06 10e3/ul Critically high 0.00-0.03 [facility] Comment on above: Performed By: #### C BC ####[facility] Kmredwrqqy6064 [place] [address]Dr. Farhat Leal IG % 0.6 % Critically high 0.0-0.5 [facility] Comment on above: Performed By: #### C BC ####[facility] Hlpsmkqvmz8590 [place] [address]Dr. Farhat Leal LYMPH # 0.6 103/ul Critically low 1.2-3.8 The [facility] Comment on above: Performed By: #### C BC ####[facility] Eqdemcsgqj[address] [place] [address]Dr. Farhat Leal Lymphocytes/100 WBC (Bld) 6.5 % Critically low 20.5-60.0 The [facility] Comment on above: Performed By: #### C BC ####[facility] Xzltqifsrn18[address] [place] [address]Dr. Farhat Leal MANUAL DIFF REQ NO Normal [facility] Comment on above: Performed By: #### C BC ####[facility] Hqysmagugb[address] [place], [place] [address]Dr. Farhat Leal MCH (RBC) [Entitic mass] 31.6 pg Normal 25.9-34.0 The [facility] Comment on above: Performed By: #### C BC ####[facility] Bfpjwhkeeq72[address] [place] [id number]. Farhat Leal MCHC (RBC) [Mass/Vol] 33.8 g/dL Normal 29.9-35.2 The [facility] Comment on above: Performed By: #### C BC ####[facility] Ksptyibmsh70[address] [place] [id number]. Farhat Leal MCV (RBC) [Entitic vol] 93.5 fL Normal 80.0-94.0 The [facility] Comment on above: Performed By: #### C BC ####[facility] Uaczyefboi2086 [place] [address]Dr. Farhat Leal MONO # 1.0 103/ul Critically high 0.3-0.8 [facility] Comment on above: Performed By: #### C BC ####[facility] Tqfgqofrsm6868 [place] [address]Dr. Farhat Leal Monocytes/100 WBC (Bld) 10.4 % Normal 1.7-12.0 The [facility] Comment on above: Performed By: #### C BC ####[facility] Xkzicekwpe6687 [place] [address]Dr. Farhat Leal NEUT # 7.8 103/ul Critically high 1.4-6.5 [facility] Comment on above: Performed By: #### C BC ####[facility] Zzkqetrvzu8529 [place] [address]Dr. Farhat Leal Neutrophils/100 WBC (Bld) 81.3 % Critically high 43.0-75.0 The [facility] Comment on above: Performed By: #### C BC ####[facility] Tgwafawaya6475 [place] [address]Dr. Farhat Leal Platelet mean volume (Bld) [Entitic vol] 9.9 fL Normal 9.5-13.5 The [facility] Comment on above: Performed By: #### C BC ####[facility] Gobuvixuls1299 [place] [address]Dr. Farhat Leal PLT 169 103/ul Normal 150-450 The [facility] Comment on above: Performed By: #### C BC ####[facility] Rkuxnwzzoa8846 [place], [place] [address]Pe. Farhat Leal RBC 4.46 106/ul Critically low 4.70-6.10 [facility] Comment on above: Performed By: #### C BC ####[facility] Hmerhyrzfc475[address] [place], [place] [address]Xa. Farhat Leal WBC 9.6 103/ul Normal 4.0-11.0 The [facility] Comment on above: Performed By: #### C BC ####[facility] Dwbhjyazwj3355 [place] [address]Dr. Farhat Leal BASO # 0.0 103/ul Normal 0.0-0.1 The [facility] Comment on above: Performed By: #### C BC ####[facility] Qxwcggatgb5781 [place] [address]Dr. Farhat Leal Basophils/100 WBC (Bld) 0.4 % Normal 0.2-2.0 The [facility] Comment on above: Performed By: #### C BC ####[facility] Cotxmjakji9296 [place] [address]Dr. Farhat Leal EO # 0.1 103/ul Normal 0.0-0.7 The [facility] Comment on above: Performed By: #### C BC ####[facility] Opcrnvbjix9179 [place] [address]Dr. Farhat Leal Eosinophils/100 WBC (Bld) 1.1 % Normal 0.9-7.0 The [facility] Comment on above: Performed By: #### C BC ####[facility] Vlmcwamwdm7222 [place] [address]Dr. Farhat Leal Erythrocyte distribution width (RBC) [Ratio] 12.6 % Normal 11.0-15.0 The [facility] Comment on above: Performed By: #### C BC ####[facility] Bvgkoybxfr5990 [place] [address]Dr. Farhat Leal Hematocrit (Bld) [Volume fraction] 40.8 % Critically low 42.0-54.0 The [facility] Comment on above: Performed By: #### C BC ####[facility] Omkditwfkg5498 [place] [address]Dr. Farhat Leal Hemoglobin (Bld) [Mass/Vol] 13.6 g/dL Critically low 14.0-18.0 The [facility] Comment on above: Performed By: #### C BC ####[facility] Ycvheakkjj6316 [place] [address]Dr. Farhat Leal IG # 0.08 10e3/ul Critically high 0.00-0.03 [facility] Comment on above: Performed By: #### C BC ####[facility] Vbeneddfxq6713 [place] [address]Dr. Farhat Leal IG % 0.9 % Critically high 0.0-0.5 [facility] Comment on above: Performed By: #### C BC ####[facility] Azqimclflk[address] [place], [place] [address]Dr. Farhat Leal LYMPH # 0.8 103/ul Critically low 1.2-3.8 The [facility] Comment on above: Performed By: #### C BC ####[facility] Xjvcuvgerb0145 [place] [address]Dr. Farhat Leal Lymphocytes/100 WBC (Bld) 8.7 % Critically low 20.5-60.[address] [facility] Comment on above: Performed By: #### C BC ####[facility] Vtujzoxull28[address] [place] [address]Dr. Farhat Leal MANUAL DIFF REQ NO Normal [facility] Comment on above: Performed By: #### C BC ####[facility] Pocmaqneep[address] [place], [place] [address]Dr. Farhat Leal MCH (RBC) [Entitic mass] 31.6 pg Normal 25.9-34.0 The [facility] Comment on above: Performed By: #### C BC ####[facility] Dwxeobdrsd1049 [place] [address]Dr. Farhat Leal MCHC (RBC) [Mass/Vol] 33.3 g/dL Normal 29.9-35.2 The [facility] Comment on above: Performed By: #### C BC ####[facility] Kzwaftokpp1074 [place] [phone]. Farhat Leal MCV (RBC) [Entitic vol] 94.9 fL Critically high 80.0-94.0 The [facility] Comment on above: Performed By: #### C BC ####[facility] Bbnrlrnecm2901 [place] [address]Dr. Farhat Leal MONO # 1.0 103/ul Critically high 0.3-0.8 [facility] Comment on above: Performed By: #### C BC ####[facility] Swgohuotsk0896 [place] [address]Dr. Farhat Leal Monocytes/100 WBC (Bld) 11.3 % Normal 1.7-12.0 The [facility] Comment on above: Performed By: #### C BC ####[facility] Kdbxhcaksj43[address] [place], [place] [address]Dr. Farhat Leal NEUT # 6.9 103/ul Critically high 1.4-6.5 [facility] Comment on above: Performed By: #### C BC ####[facility] Stqeotntob[address] [place], [place] [address]Dr. Farhat Leal Neutrophils/100 WBC (Bld) 77.6 % Critically high 43.0-75.0 The [facility] Comment on above: Performed By: #### C BC ####[facility] Zibdtchohf[address] [place], [place] [address]Dr. Farhat Leal Platelet mean volume (Bld) [Entitic vol] 9.7 fL Normal 9.5-13.5 The [facility] Comment on above: Performed By: #### C BC ####[facility] Dggkzdoqdy6[address] [place], [place] [address]Dr. Farhat Leal PLT 171 103/ul Normal 150-450 The [facility] Comment on above: Performed By: #### C BC ####[facility] Qpsngvdwlo[address] [place], [place] [address]Dr. Farhat Leal RBC 4.30 106/ul Critically low 4.70-6.10 [facility] Comment on above: Performed By: #### C BC ####[facility] Irkwjtwkdn0402 [place], [place] [address]Ja. Farhat Leal WBC 8.9 103/ul Normal 4.0-11.[address] [facility] Comment on above: Performed By: #### C BC ####[facility] Lnzhwxdtvz1849 [place], [place] [address]Su. Farhat Leal Covid-19 PCR (CVDTBH)on SARS-CoV-2 (COVID-19) RNA JOSH+probe Ql (Unsp spec) Not detected Normal NOT DETECTED The [facility] Comment on above: Result Comment: When diagnostic [...] for this test is supported by the [employer] of Health and Human Service's declaration that [...] C VDTBH ####[facility] Qdkrmiocvw5503 [place] [address]Dr. Madelynlorri Leal PROF 14(COMP METB)on 022 Albumin [Mass/Vol] 2.6 g/dL Critically low 3.4-5.0 Th e [facility] Comment on above: Performed By: #### C MP ####[facility] Fpevbxhyjm9402 [place] [address]Dr. Madelynlorri Leal Albumin/Globulin [Mass ratio] 0.7 {ratio} Normal [facility] Comment on above: Performed By: #### C MP ####[facility] Ssvcvajngm3380 [place] [address]Dr. Farhat Leal ALP [Catalytic activity/Vol] 88 U/L Normal 46-[address] [facility] Comment on above: Performed By: #### C MP ####[facility] Xqannygdqh1813 [place] [address]Dr. Farhat Leal ALT [Catalytic activity/Vol] 15 U/L Critically low 16-[address] [facility] Comment on above: Performed By: #### C MP ####[facility] Hqdwdhnego9640 [place] [address]Dr. Farhat Elvis Anion gap [Moles/Vol] 11.7 mmol/L Normal Th e [facility] Comment on above: Performed By: #### C MP ####[facility] Ouheejwnjr7590 [place] [address]Dr. Farhat Elvis AST [Catalytic activity/Vol] 25 U/L Normal 15-[address] [facility] Comment on above: Performed By: #### C MP ####[facility] Mipxjqwsdg0166 [place] [address]Dr. Farhat Elvis Bilirubin [Mass/Vol] 0.6 mg/dL Normal 0.2-1.[address] [facility] Comment on above: Performed By: #### C MP ####[facility] Nghqkorvwn8133 [place] [address]Dr. Farhat Elvis Calcium [Mass/Vol] 8.9 mg/dL Normal 8.5-10.1 [facility] Comment on above: Performed By: #### C MP ####[facility] Lmkkxazndg0568 [place] [address]Dr. Farhat Elvis Chloride [Moles/Vol] 93 mmol/L Critically low 98-107 The [facility] Comment on above: Performed By: #### C MP ####[facility] Pyvupdpptl0388 [place] [address]Dr. Farhat Leal CO2 [Moles/Vol] 28.9 mmol/L Normal 21.0-32.0 The [facility] Comment on above: Performed By: #### C MP ####[facility] Qreqekwtcw0562 [place] [address]Dr. Farhat eLal Creatinine [Mass/Vol] 2.09 mg/dL Critically high 0.70-1.[address] [facility] Comment on above: Performed By: #### C MP ####[facility] Vbyclgyixk7308 [place] [address]Dr. Farhat Leal EGFR-AF BURMESE 38 mL/min/1.73m2 Critically low >=[address] [facility] Comment on above: Performed By: #### C MP ####[facility] Sqcpefgotr2842 [place] [address]Dr. Farhat Elvis EGFR-NON AF BURMESE 31 mL/min/1.73m2 Critically low >=[address] [facility] Comment on above: Performed By: #### C MP ####[facility] Ltlsrcfuff8[address] [place], [place] [address]Dr. Farhat Elvis Globulin (S) [Mass/Vol] 3.7 g/dL Normal [facility] Comment on above: Performed By: #### C MP ####[facility] Dkskegygme23[address] [place], [place] [address]Dr. Farhat Elvis Glucose [Mass/Vol] 214 mg/dL Critically high 74-106 T [facility] Comment on above: Performed By: #### C MP ####[facility] Bhuvznbfgs167[address] [place], [place] [address]Dr. Madelynlorri Elvis Potassium [Moles/Vol] 5.6 mmol/L Critically high 3.5-5.[address] [facility] Comment on above: Performed By: #### C MP ####[facility] Yroditvqke13[address] [place], [place] [address]Dr. Faraht Leal Protein [Mass/Vol] 6.3 g/dL Critically low 6.4-8.2 Th [facility] Comment on above: Performed By: #### C MP ####[facility] Mcgselzkbk9[address] [place], [place] [address]Dr. Madelynlorri Elvis Sodium [Moles/Vol] 128 mmol/L Critically low 136-145 [facility] Comment on above: Performed By: #### C MP ####[facility] Densucfxed[address] [place], [place] [address]Dr. Farhat Leal Urea nitrogen [Mass/Vol] 65.0 mg/dL Critically high 7.0-18.[address] [facility] Comment on above: Performed By: #### C MP ####[facility] Xbqllsbgpn[address] [place], [place] [address]Dr. Farhat Leal Urea nitrogen/Creatinine [Mass ratio] 31.1 mg/mg Normal [facility] Comment on above: Performed By: #### C MP ####[facility] Vfljpbpssh[address] [place], [place] [address]Dr. Madelynlorri Elvis Albumin [Mass/Vol] 2.5 g/dL Critically low 3.4-5.0 Th e [facility] Comment on above: Performed By: #### T MYRIAM, CMP ####[facility] Dldwzalxov[address] [place], [place] [address]Dr. Farhat Leal Albumin/Globulin [Mass ratio] 0.7 {ratio} Normal [facility] Comment on above: Performed By: #### T MYRIAM, CMP ####[facility] Psxlqyfgxu24[address] [place], [place] [address]Dr. Madelynlorri Leal ALP [Catalytic activity/Vol] 83 U/L Normal 46-[address] [facility] Comment on above: Performed By: #### T MYRIAM, CMP ####[facility] Iaanwzpcrv18[address] [place], [place] [address]Dr. Farhat Leal ALT [Catalytic activity/Vol] 16 U/L Normal 16-[address] [facility] Comment on above: Performed By: #### T MYRIAM, CMP ####[facility] Wycmvbyoxf60[address] [place], [place] [address]Dr. Farhat Leal Anion gap [Moles/Vol] 9.7 mmol/L Normal [facility] Comment on above: Performed By: #### T MYRIAM, CMP ####[facility] Jpgjklnzhq33[address] [place], [place] [address]Dr. Farhat Leal AST [Catalytic activity/Vol] 27 U/L Normal 15-[address] [facility] Comment on above: Performed By: #### T SH, CMP ####[facility] Iaszdcmklj062[address] [place], [place] [address]Dr. Farhat Leal Bilirubin [Mass/Vol] 0.5 mg/dL Normal 0.2-1.0 The [facility] Comment on above: Performed By: #### T SH, CMP ####[facility] Byfljmvbmr224[address] [place], [place] [address]Dr. Farhat Leal Calcium [Mass/Vol] 8.8 mg/dL Normal 8.5-10.1 [facility] Comment on above: Performed By: #### T SH, CMP ####[facility] Xcnjffobzk700[address] [place], [place] [address]Dr. Farhat Leal Chloride [Moles/Vol] 95 mmol/L Critically low 98-107 The [facility] Comment on above: Performed By: #### T MYRIAM, CMP ####[facility] Yrnbyzkqoe50[address] [place], [place] [address]Dr. Farhat Leal CO2 [Moles/Vol] 30.5 mmol/L Normal 21.0-32.0 The [facility] Comment on above: Performed By: #### T MYRIAM, CMP ####[facility] Hrirnklxgv[address] [place], [place] [address]Dr. Farhat Leal Creatinine [Mass/Vol] 2.18 mg/dL Critically high 0.70-1.30 The [facility] Comment on above: Performed By: #### T MYRIAM, CMP ####[facility] Ofncvlaezl[address] [place], [place] [address]Dr. Farhat Leal EGFR-AF BURMESE 36 mL/min/1.73m2 Critically low >=60 The [facility] Comment on above: Performed By: #### T MYRIAM, CMP ####[facility] Bpkgilgutn[address] [place], [place] [address]Dr. Farhat Leal EGFR-NON AF BURMESE 30 mL/min/1.73m2 Critically low >=60 The [facility] Comment on above: Performed By: #### T SH, CMP ####[facility] Bbbceqgawk[address] [place], [place] [address]Dr. Farhat Leal Globulin (S) [Mass/Vol] 3.5 g/dL Normal The [facility] Comment on above: Performed By: #### T MYRIAM, CMP ####[facility] Arztvbicgc3880 [place] [address]Dr. Madelynlorri Leal Glucose [Mass/Vol] 141 mg/dL Critically high 74-106 T [facility] Comment on above: Performed By: #### T SH, CMP ####[facility] Rwjtffyvik[address] [place], [place] [address]Dr. Farhat Leal Potassium [Moles/Vol] 5.2 mmol/L Critically high 3.5-5.[address] [facility] Comment on above: Performed By: #### T SH, CMP ####[facility] Pyzzwhvjld[address] [place], [place] [address]Dr. Farhat Leal Protein [Mass/Vol] 6.0 g/dL Critically low 6.4-8.2 [facility] Comment on above: Performed By: #### T MYRIAM, CMP ####[facility] Yyizglhzls[address] [place], [place] [address]Dr. Farhat Leal Sodium [Moles/Vol] 130 mmol/L Critically low 136-145 [facility] Comment on above: Performed By: #### T MYRIAM, CMP ####[facility] Srmrmnwkyb[address] [place], [place] [address]Dr. Farhat Leal Urea nitrogen [Mass/Vol] 63.0 mg/dL Critically high 7.0-18.[address] [facility] Comment on above: Performed By: #### T MYRIAM, CMP ####[facility] [id number] [place], [place] [address]Dr. Farhat Leal Urea nitrogen/Creatinine [Mass ratio] 28.9 mg/mg Normal [facility] Comment on above: Performed By: #### T MYRIAM, CMP ####[facility] [address] [place], [place] [address]Dr. Farhat Leal PROTIMEon 09-18-2021 INR Coag (PPP) [Relative time] 1.06 {INR} Normal [facility] Comment on above: Performed By: #### P T, PTT ####[facility] [address] [place], [place] [address]Dr. Farhat Leal INR GUIDELINES SEE BELOW Normal [facility] Comment on above: Result Comment: MALINA RED INR: 2.0 - 3.0 CONDITIONS NOT LISTED BELOW 2.5 - 3.5 FOR PROSTHETIC HEART VALVE REPLACEMENT 2.5 - 3.5 RECURRENT THROMBOSIS Performed By: #### P T, PTT ####[facility] [id number] [place] [address]Dr. Farhat Leal PT Coag (PPP) [Time] 11.4 s Normal 9.0-11.[address] [facility] Comment on above: Performed By: #### P T, PTT ####[facility] [address] [place] [address]Dr. Madelynlorri Leal PTTon 09-18-2021 aPTT Coag (Bld) [Time] 27.9 s Normal 22.3-36.2 [facility] Comment on above: Performed By: #### P T, PTT ####[facility] [address] [place] [address]Dr. Farhat Leal TSHon 09-18-2021 TSH 7.099 uIU/mL Critically high 0.358-3.740 [facility] Comment on above: Performed By: #### T SH, CMP ####[facility] Eq[address] [place], [place] [address]Dr. Farhat Leal US SALOME DOP LEG RTon 09-19-19 US SALOME DOP LEG RT Normal [facility] XR CHEST 1 Von 09-18-2021 XR CHEST 1 V Normal [facility] XR HIP RT 2 3V W PELVISon XR HIP RT 2 3V W PELVIS Normal [facility] Vital Signs Date Time Vital Sign Value Performing Clinician Facility 03-18-2023 13:37-0500 Body temperature 98.01 [degF] Baltic ABODO DO Work Phone: [facility] 03-18-2023 13:37-0500 Diastolic blood pressure 64 mm[Hg] [employer] Drop[employer] DO Work Phone: [facility] 03-18-2023 13:37-0500 Heart rate 72 /min [facility] DO Work Phone: [facility] 03-18-2023 13:37-0500 SaO2% (BldA) [Mass fraction] 98 % Ni Sandhuick DO Work Phone: [facility] 03-18-2023 13:37-0500 Systolic blood pressure 118 mm[Hg] Ni Whiteznick DO Work Phone: [facility] 07-20-2022 13:35-0400 Body temperature 97.4 [degF] DO Devon Ball Work Phone: [facility] 07-20-2022 13:35-0400 Diastolic blood pressure 50 mm[Hg] DO Devon Ball Work Phone: [facility] 07-20-2022 13:35-0400 Heart rate 67 /min DO Devon Ball Work Phone: [facility] 07-20-2022 13:35-0400 Respiratory rate 20 /min DO Devon Ball Work Phone: [facility] 07-20-2022 13:35-0400 Systolic blood pressure 98 mm[Hg] DO Devon Ball Work Phone: [facility] 06-29-2022 14:46-0400 Body height 193.04 cm DO Devon Ball Work Phone: [facility] 02-26-2022 13:11-0500 Body temperature 96.6 [degF] Hina Peterson MD Work Phone: [facility] 02-26-2022 13:11-0500 Diastolic blood pressure 75 mm[Hg] Hina Peterson MD Work Phone: [facility] 02-26-2022 13:11-0500 Heart rate 75 /min Hina Peterson MD Work Phone: [facility] 02-26-2022 13:11-0500 Systolic blood pressure 88 mm[Hg] Hina Peterson MD Work Phone: [facility] 02-05-2022 08:29-0500 Body temperature 96.69 [degF] [facility] Work Phone: [facility] 02-05-2022 08:29-0500 Diastolic blood pressure 42 mm[Hg] [facility] Work Phone: [facility] 02-05-2022 08:29-0500 Heart rate 79 /min [facility] Work Phone: [facility] 02-05-2022 08:29-0500 SaO2% (BldA) [Mass fraction] 100 % [facility] Work Phone: [facility] 02-05-2022 08:29-0500 Systolic blood pressure 72 mm[Hg] [facility] Work Phone: [facility] 01-12-2022 11:00-0500 Diastolic blood pressure 54 mm[Hg] Alissa Major BOARD CERTIFIED BEHAVIORAL ANALYST.[employer] Work Phone: [facility] 01-12-2022 11:00-0500 Heart rate 88 /min Alissa Major BOARD CERTIFIED BEHAVIORAL ANALYST.[employer] Work Phone: [facility] 01-12-2022 11:00-0500 SaO2% (BldA) [Mass fraction] 93 % Alissa Major BOARD CERTIFIED BEHAVIORAL ANALYST.[employer] Work Phone: [facility] 01-12-2022 11:00-0500 Systolic blood pressure 96 mm[Hg] Alissa Major BOARD CERTIFIED BEHAVIORAL ANALYST.[employer] Work Phone: [facility] 01-12-2022 10:12-0500 Body temperature 97.9 [degF] Alissa Major BOARD CERTIFIED BEHAVIORAL ANALYST.[employer] Work Phone: [facility] 01-12-2022 10:12-0500 Respiratory rate 18 /min Alissa Major BOARD CERTIFIED BEHAVIORAL ANALYST.[employer] Work Phone: [facility] 11-17-2021 15:59-0400 Body height 193 cm No Reeder DO Work Phone: [facility] 11-17-2021 15:59-0400 Body weight 111.58 kg No Reeder DO Work Phone: [facility] 11-17-2021 15:59-0400 Diastolic blood pressure 59 mm[Hg] No Reeder DO Work Phone: [facility] 11-17-2021 15:59-0400 Heart rate 86 /min No Reeder DO Work Phone: [facility] 11-17-2021 15:59-0400 SaO2% (BldA) [Mass fraction] 97 % No Reeder DO Work Phone: [facility] 11-17-2021 15:59-0400 Systolic blood pressure 104 mm[Hg] No Reeder DO Work Phone: [facility] Encounters Encounter Date Encounter Type Care Provider Facility Start: 05-19-2023 End: 05-19-2023 ambulatory [facility] Start: 04-11-2023 End: 04-11-2023 ambulatory Devon Moreira Other [employer] Other Start: 04-11-2023 Telephone encounter Devon Moreira [facility] Start: 03-18-2023 End: 03-18-2023 ambulatory NI CABRERA Not Available Start: 03-18-2023 End: 03-18-2023 Office outpatient visit 25 minutes Ni Cabrera DO Work Phone: [facility] [address] Comment on above: 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 ([facility]/HCC) (Primary Dx); 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); 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); Type 1 diabetes mellitus with hypoglycemia and without coma (CMS/HCC); 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 ([facility]/HCC) Start: 02-17-2023 End: 02-17-2023 ambulatory Devon Moreira Other [employer] Other Start: 02-17-2023 Telephone encounter Devon NUNEZ [facility] Start: 01-14-2023 End: 01-14-2023 ambulatory Devon Moreira Other [employer] Other Start: 01-14-2023 Sbsq nursing facil c are/day minor complj 15 min Devon Moreira [facility] Start: 12-10-2022 End: 12-10-2022 ambulatory Devon Moreira Other [employer] Other Start: 12-10-2022 Sbsq nursing facil c are/day minor complj 15 min Devon Moreira [facility] Start: 11-12-2022 End: 11-12-2022 ambulatory Devon Moreira Other [employer] Other Start: 11-12-2022 Sbsq nursing facil c are/day minor complj 15 min [facility] Start: 10-16-2022 Refill Asia Pike MD Work Phone: [facility] Comment on above: Med Change Request Start: 10-12-2022 End: 10-12-2022 ambulatory Devon Moreira Other [employer] Other Start: 10-12-2022 Telephone encounter Devon Moreira [facility] Start: 10-08-2022 End: 10-08-2022 ambulatory Devon Moreira Other [employer] Other Start: 10-08-2022 Sbsq nursing facil c are/day new problem 25 min [facility] Start: 09-22-2022 [facility] Comment on above: Rx Refills Start: 09-10-2022 End: 09-10-2022 ambulatory Devon Moreira Other [employer] Other Start: 09-10-2022 Sbsq nursing facil c are/day new problem 25 min [facility] Start: 09-09-2022 End: 09-09-2022 ambulatory [facility] Start: 08-06-2022 End: 08-06-2022 ambulatory Devon Moreira Other [employer] Other Start: 08-06-2022 Sbsq nursing facil c are/day new problem 25 min [facility] Start: 07-22-2022 End: 07-22-2022 ambulatory Devon Moreira Other [employer] Other Start: 07-22-2022 Telephone encounter Devon NUNEZ [facility] Start: 07-20-2022 End: 07-20-2022 ambulatory Sadia Aguilar Facility:[facility] Start: 07-20-2022 End: 07-20-2022 ambulatory DO Devon Moreira Work Phone: [facility] Work Phone: Start: 07-20-2022 End: 07-20-2022 Discharged Recurring DO Devon Moreira Work Phone: [facility] Work Phone: Start: 07-13-2022 End: 07-13-[address] DEVON MOREIRA Facility:[facility] Start: 07-10-2022 End: 07-10-[address] DEVON MOREIRA Facility:[facility] Start: 07-03-2022 End: 07-03-[address] DEVON MOREIRA Facility:[facility] Start: 06-26-2022 End: 06-26-[address] DEVON MOREIRA Facility:[facility] Start: 06-26-2022 End: 06-26-[address] DEVON MOREIRA Facility:[facility] Start: 06-25-2022 End: 06-25-2022 ambulatory Devon Moreira Other [employer] Other Start: 06-25-2022 Sbsq nursing facil c are/day minor complj 15 min Devon Moreira [facility] Start: 06-19-2022 End: 06-19-[address] DEVON MOREIRA Facility:[facility] Start: 06-15-2022 End: 07-15-2022 ambulatory SHAIKH Kate MURRAY Facility:[facility] Start: 06-12-2022 End: 06-12-[address] DOCTOR WALSH Facility:[facility] Start: 06-05-2022 Sbsq nursing facil c are/day new problem 25 min Devon Moreira [facility] Start: 06-05-2022 End: 06-05-[address] DEVON MOREIRA [facility] [employer] Other Start: 05-29-2022 End: 05-29-[address] DEVON MOREIRA Facility:[facility] Start: 05-22-2022 End: 05-22-[address] DEVON MOREIRA Facility:[facility] Start: 05-20-2022 End: 05-20-[address] DEVON MOREIRA Facility:[facility] Start: 05-18-2022 End: 06-12-2022 ambulatory SHAIKH Kate MURRAY Facility:[facility] Start: 05-15-2022 End: 05-15-[address] DEVON MOREIRA Facility:[facility] Start: 05-13-2022 End: 05-13-2022 ambulatory Van Olivarez BOARD CERTIFIED BEHAVIORAL ANALYST.[employer] Work Phone: [facility] Comment on above: results Start: 05-13-2022 E-mail encounter fro m caregiver Van Olivarez APRN.[employer] Work Phone: [facility] Start: 05-08-2022 End: 05-08-[address] DEVON MOREIRA Facility:[facility] Start: 05-07-2022 End: 05-07-2022 ambulatory Devon Moreira Other [facility] [employer] Other Start: 05-07-2022 Sbs nursing facil c are/day new problem 25 min Devon Moreira [facility] Start: 05-06-2022 End: 05-06-2022 ambulatory [...] MOREIRA Facility:[facility] Start: 04-02-2022 ambulatory Van cortes APRN.[employer] Work Phone: [facility] Start: 04-01-2022 End: 04-01-[address] DEVON MOREIRA Facility:[facility] Start: 03-22-2022 Refill Asia Pike MD Work Phone: [facility] Comment on above: Med Change Request Start: 03-21-2022 ambulatory SHAIKH Kate MURRAY Facilit y:[facility] Start: 03-11-2022 End: 03-11-[address] DEVON MOREIRA Facility:[facility] Start: 02-27-2022 Refill Arnulfovic [facility] Comment on above: Rx Refills Start: 02-26-2022 End: 02-26-2022 ambulatory DEVON MOREIRA Facility:[facility] Start: 02-26-2022 End: 02-26-2022 Patient encounter [...] Facility:[facility] Start: 02-05-2022 End: 02-06-2022 ambulatory ARTUR GARCIAERVARY Facility:[facility] Start: 02-05-2022 End: 02-05-2022 Patient encounter procedure [facility] Work Phone: [facility] Comment on above: Kidney replaced by t ransplant (Primary Dx); 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; penitentiary current use of immunosuppressive drug Start: 01-26-2022 End: 01-26-[address] DEVON MOREIRA Facility:[facility] Start: 01-20-2022 Telephone encounter Van Olivarez APRN.[employer] Work Phone: [facility] Comment on above: Results Start: 01-19-2022 End: 01-19-[address] DEVON MOREIRA Facility:[facility] Start: 01-16-2022 ambulatory SHAIKH Kate MURRAY Facilit y:[facility] Start: 01-12-2022 End: 01-12-2022 Subsequent hospital visit by physician Alissa Chavira APRN.[employer] Work Phone: [facility] Comment on above: ILIANA (acute kidney in jury) (HCC) [N17.9] Start: 12-30-2021 End: 12-30-2021 ambulatory Paresh Fonseca MD Work Phone: Infectious Disease Comment on above: MRSA bacteremia (Arabella munira Dx); Diabetic foot ulcer with osteomyelitis (HCC) Start: 12-30-2021 End: 12-30-2021 Telemedicine consultation with patient Paresh Fonseca MD Work Phone: [facility] Start: 12-29-2021 End: 12-29-[address] DEVON [...] Agency Start: 12-08-2021 Orders Only Artur Jennyfer soto BOARD CERTIFIED BEHAVIORAL ANALYST.[employer] Work Phone: [facility] Comment on above: Kidney replaced by t ransplant (Primary Dx) Start: 12-07-2021 ambulatory Paresh Fonseca MD Work Phone: [facility] Comment on above: CoPat Start (copat s top 12/27/21) Start: 12-05-2021 Telephone encounter Paresh Fonseca MD Work Phone: Infectious Disease Comment on above: Patient Update (evus held discussion/) Start: 12-01-2021 Follow-up encounter [facility] Provider [facility] Start: 12-01-2021 Patient encounter procedure [facility] Prov ider [facility] Start: 11-23-2021 End: 11-28-2021 Evaluation and [...] Start: 11-14-2021 End: 11-15-2021 ambulatory [facility] Cort[facility] Start: 10-24-2021 End: 11-15-2021 ambulatory SHAIKH Kate MURRAY Facility:[facility] Start: 10-22-2021 End: 10-23-2021 ambulatory ASHLEY Cortes [facility] Facility:[facility]1 Start: 10-06-2021 ambulatory Van cortes BOARD CERTIFIED BEHAVIORAL ANALYST.[employer] Work Phone: [facility] Start: 09-30-2021 Refill Asia Pike MD Work Phone: [facility] Comment on above: Refill Request Start: 09-19-2021 End: 09-24-2021 Evaluation and management of inpatient DR PROSPER LEES Facility:[facility]1 Start: 09-18-2021 End: 09-19-[address] DEVON MOREIRA Facility:[facility] Start: 07-11-2021 Refill Asia Pike MD Work Phone: [facility] Comment on above: Refill Request Start: 06-05-2021 Telephone encounter Van Olivarez BOARD CERTIFIED BEHAVIORAL ANALYST.[employer] Work Phone: [facility] Comment on above: Results Start: 02-05-2021 End: 02-13-2021 ambulatory UNKNOWN PROVIDER Facility:[facility] Procedures Date Procedure Procedure Detail Performing Clinician Start: 05-19-2023 Follow-up visit Follow-up CAITY IBRAHIM Start: 03-18-2023 Hemoglobin glycosyla rk a1c Ni Cabrera DO Work Phone: Start: 02-05-2022 Creatinine other source Asia Pike MD Work Phone: Start: 02-05-2022 Urnls dip stick/tabl et rgnt auto w/o microscopy Asia Pike MD Work Phone: Start: 01-12-2022 Prothrombin time Alissa Chavira BOARD CERTIFIED BEHAVIORAL ANALYST.[employer] Work Phone: Start: 12-01-2021 PACEMAKER CLINIC CHECK [facility] Provider Start: 11-29-2021 Microscopic examinat ion of blood, culture DR PROSPER LEES Comment on above: Performed By: #### B [id number] ####[facility] [id number] [place] [address]Dr. Farhat Leal Start: 11-27-2021 Insertion of Infusio [...] renal transplant KIDNEY TRANSPLANT STATUS Van Olivarez BOARD CERTIFIED BEHAVIORAL ANALYST.[employer] Work Phone: History of renal transplant Kidney replaced by transplant Arturadrian Chen BOARD CERTIFIED BEHAVIORAL ANALYST.[employer] Work Phone: History of renal transplant Kidney replaced by transplant [facility] Work Phone: History of renal transplant Devon Moreira Other History of renal transplant Kidney replaced by transplant Asia Pike MD Work Phone: History of renal transplant Devon Moreira Other Plan of Treatment Date Care Activity Detail Author Start: 06-17-2023 End: 06-17-2023 Patient encounter procedure 06/17/2023 2:15 PM EDT [facility] [address] [place] [address] Ni Cabrera DO [address] [place] [address] [facility] [address] Start: 06-16-2023 Hemoglobin A1c measurement Diabetes: Hemoglobin A1C [facility] Start: 02-26-2023 BP CONTROLLED (<130/80) BP CONTROLLE D (<130/80) [facility] Start: 02-05-2023 BP CONTROLLED (<130/80) BP CONTROLLE D (<130/80) [facility] Start: 01-12-2023 BP CONTROLLED (<130/80) BP CONTROLLE D (<130/80) [facility] Start: 11-17-2022 BP CONTROLLED (<130/80) BP CONTROLLE D (<130/80) [facility] Start: 10-16-2022 Influenza vaccination [facility] Start: 05-15-2022 Medicare Annual Wellness (AWV) Medicare Annual Wellness (AWV) [facility] Start: 04-08-2022 BP CONTROLLED (<130/80) BP CONTROLLE D (<130/80) [facility] Start: 02-15-2022 ADVANCE DIRECTIVE DISCUSSION ADVANCE DIRECTIVE DISCUSSION [facility] Start: 02-15-2022 DEPRESSION ASSESSMENT DEPRESSION ASS ESSMENT [facility] Start: 02-05-2022 COVID-19 VACCINE (5 - Yung risk series) COVID-19 VACCINE (5 - Yung risk series) [facility] Start: 11-27-2021 COVID-19 VACCINE (4 - Booster for Yung series) COVID-19 VACCINE (4 - Booster for Yung series) [facility] Start: 11-04-2021 Hemoglobin A1c/Hemoglobin.total in Blood HBA1C [facility] Start: 10-16-2021 Influenza vaccination C [facility] Start: 03-26-2021 COVID-19 VACCINE (3 - Yung risk 3-dose series) COVID-19 VACCINE (3 - Yung risk 3-dose series) [facility] Start: 03-26-2021 COVID-19 VACCINE (3 - Yung risk series) COVID-19 VACCINE (3 - Yung risk series) [facility] Start: 02-15-2021 ADVANCE DIRECTIVE DISCUSSION ADVANCE DIRECTIVE DISCUSSION [facility] Start: 02-15-2021 DEPRESSION ASSESSMENT DEPRESSION ASS ESSMENT [facility] Start: 01-05-2016 Hepatitis B screening URINE AL BUMIN:CREATININE RATIO [facility] Start: 07-31-2015 Pneumococcal Vaccine : 65+ Years (3 - PCV) Pneumococcal Vaccine: 65+ Years (3 - PCV) [facility] Start: 04-06-2015 Hemoglobin A1c/Hemoglobin.total in Blood HBA1C [facility] Start: 11-22-2010 Hepatitis B surface antibody level LDL CHOLESTEROL [facility] Start: 2009 ADULT PREVNAR-13 ADULT PREVNAR-13 Cl [facility] Start: 2009 PNEUMOVAX AGE 65 AND OVER WITH 5YR LOOKBACK (#1) PNEUMOVAX AGE 65 AND OVER WITH 5YR LOOKBACK (#1) [facility] Start: 1994 SHINGRIX VACCINE (1 of 2) SHINGRIX VACCINE (1 of 2) [facility] Start: 10-18-1963 HEPATITIS A (1 of 2 - Risk 2-dose series) HEPATITIS A (1 of 2 - Risk 2-dose series) [facility] Start: 10-18-1963 Hepatitis A Vaccine (1 of 2 - Risk 2-dose series) Hepatitis A Vaccine (1 of 2 - Risk 2-dose series) [facility] Start: 10-18-1963 SHINGRIX VACCINE (1 of 2) SHINGRIX VACCINE (1 of 2) [facility] Start: 10-18-1963 Urine microalbumin profile [facility] Start: 1962 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 MATTHEW DISEASE VISIT ANNUAL PCP TEAM CHRONIC DISEASE VISIT [facility] Start: 1956 Adult depression screening assessment DEPRESSION SCREENING [facility] Start: 1954 3 comp foot exam completed DIABETIC FOOT EXAM [facility] Start: 1954 Glaucoma screening Diabetes: R etinopathy Screening [facility] Start: 1954 Hepatitis C antibody , confirmatory test DILATED RETINAL EXAM [facility] Start: 1950 Pneumococcal Vaccine : 65+ (1 - PCV) Pneumococcal Vaccine: 65+ (1 - PCV) [facility] Start: 1950 PNEUMOCOCCAL: 65+ (1 - PCV) PNEUMOCOCCAL: 65+ (1 - PCV) [facility] Start: 1945 HEPATITIS A (1 of 2 - Risk 2-dose series) HEPATITIS A (1 of 2 - Risk 2-dose series) [facility] URINALYSIS, REFLEX MICROSCOPIC URINALYSIS, REFLEX MICROSCOPIC Lab Routine Screening for genitourinary condition Ordered: 10/06/2021 [facility] Work Phone: Comment on above: Ordered: 10/06/2021 URINALYSIS, REFLEX MICROSCOPIC URINALYSIS, REFLEX MICROSCOPIC Lab Routine Screening for genitourinary condition Ordered: 04/02/2022 [facility] Work Phone: Comment on above: Ordered: 04/02/2022 End: 11-17-2022 US LEG ARTERIAL PERIPH UNL VAS LAB US LEG ARTERIAL PERIPH UNL VAS LAB Vascular Lab Routine PAD (peripheral artery disease) (HCC) Nonhealing ulcer of heel (HCC) 1 Occurrences starting 11/17/2021 until 11/17/2022 [facility] Work Phone: Comment on above: 1 Occurrences starti ng 11/17/2021 until 11/17/2022 End: 11-17-2022 US LEG VEIN DVT UNL VAS LAB US LEG VEIN DVT UNL VAS LAB Vascular Lab Routine Acute deep vein thrombosis (DVT) of proximal end of right lower extremity (HCC) 1 Occurrences starting 11/17/2021 until 11/17/2022 [facility] Work Phone: Comment on above: 1 Occurrences starti ng 11/17/2021 until 11/17/2022 [facility] VAS [facility] VAS [facility] Immunizations Immunization Date Immunization Notes Care Provider Fa gaston 12-11-2021 COVID-19 booster vaccine, age 12+ yr, bivalent (PFIZER-BIONTGravity Jack) Paresh Fonseca MD Work Phone: [facility] 12-11-2021 influenza, high-dose , quadrivalent vaccine (FLUZONE HIGH DOSE QUADRIVALENT) Paresh Fonseca MD Work Phone: [facility] 12-11-2021 influenza virus vaccine, unspecified formulation [facility] 10-24-2021 influenza, high dose seasonal, preservative-free Ni Petznick DO Work Phone: [facility] 01-19-2019 influenza, high dose seasonal, preservative-free Ni Petznick DO Work Phone: [facility] 11-25-2017 Seasonal trivalent influenza vaccine, adjuvanted, preservative free Ni Petznick DO Work Phone: [facility] 11-05-2016 influenza, high dose seasonal, preservative-free Ni Petznick DO Work Phone: [facility] 07-30-2014 pneumococcal polysaccharide vaccine, 23 valent Ni Petznick DO Work Phone: [facility] 03-09-2011 influenza virus vaccine, unspecified formulation Van Olivarez APRN.[employer] Work Phone: [facility] 12-17-2007 influenza virus vaccine, unspecified formulation Van Olivarez BOARD CERTIFIED BEHAVIORAL ANALYST.[facility] Work Phone: [facility] Work Phone: 02-11-2006 influenza virus vaccine, unspecified formulation Van Olivarez BOARD CERTIFIED BEHAVIORAL ANALYST.[facility] Work Phone: [facility] Work Phone: 12-07-2003 influenza virus vaccine, unspecified formulation Van Olivarez BOARD CERTIFIED BEHAVIORAL ANALYST.[facility] Work Phone: [facility] Work Phone: 12-07-2003 pneumococcal polysaccharide vaccine, 23 valent Van Olivarez BOARD CERTIFIED BEHAVIORAL ANALYST.[facility] Work Phone: [facility] Work Phone: NEGATED: Highlighted row has not occurred!12-10-2021 COVID-19 booster vaccine, age 12+ yr, bivalent (PFIZER-BIONTGravity Jack) Paresh Fonseca MD Work Phone: [facility] NEGATED: Highlighted row has not occurred!12-10-2021 influenza, high-dose, quadrivalent vaccine (FLUZONE HIGH DOSE QUADRIVALENT) Paresh Fonseca MD Work Phone: [facility] Payers Date Payer Category Payer Medicare MEDICARE MEDICAR E A AND B [id number] 2009-Present [phone] [address] [address] [place] [address] Medicare [id number] 2009 Medicare [id number] 2009 Unknown [employer] [place] MEDICARE SUPPLEMENT [id number] 2009-Present [phone] [id number] [employer] [place] [address] Indemnity [id number] 2009 Unknown [id number] 2009 Unknown [id number] 2009 Unknown [id number] 1959 Medicare [id number] 1959 Self-pay 1944 Unknown [id number] 1944 Unknown [id number] 1944 Unknown [id number] 1944 Unknown [id number] 2.16.840.1.097501.3.579.2.593 1945 Unknown [id number] 2.16.840.1.035562.3.579.2.593 1945 Unknown [id number] 2.16.840.1.235200.3.579.2.593 1944 Unknown [id number] 2.16.840.1.615854.3.579.2.593 1944 Unknown [id number] 2.16.840.1.170275.3.579.2.593 1944 Unknown [id number] 2.16.840.1.377811.3.579.2.593 1944 Unknown [id number] 2.16.840.1.804318.3.579.2.593 1944 Unknown [id number] 2.16.840.1.568848.3.579.2.593 1944 Unknown [id number] 2.16.840.1.388194.3.579.2.593 1944 Unknown [id number] 2.16.840.1.869940.3.579.2.593 1944 Unknown [id number] 2.16.840.1.112936.3.579.2.593 1944 Unknown [id number] 2.16.840.1.615230.3.579.2.593 1944 Unknown [id number] 2.16.840.1.865428.3.579.2.593 1944 Unknown [id number] 2.16.840.1.027173.3.579.2.593 1944 Unknown [id number] 2.16.840.1.621586.3.579.2.593 1944 Unknown [id number] 2.16.840.1.011277.3.579.2.593 1944 Unknown [id number] 2.16.840.1.569843.3.579.2.593 1944 Unknown [id number] 2.16.840.1.760153.3.579.2.593 1944 Unknown [id number] 2.16.840.1.397330.3.579.2.593 1944 Unknown [id number] 2.16.840.1.814868.3.579.2.593 1944 Unknown [id number] 2.16.840.1.652211.3.579.2.593 1944 Unknown [id number] 2.16.840.1.958008.3.579.2.593 1944 Unknown [id number] 2.16.840.1.178229.3.579.2.593 1944 Unknown [id number] 2.16.840.1.241149.3.579.2.593 1944 Unknown [id number] 2.16.840.1.458220.3.579.2.593 1944 Unknown [id number] 2.16.840.1.270267.3.579.2.593 1944 Unknown [id number] 2.16.840.1.615160.3.579.2.593 1944 Unknown [id number] 2.16.840.1.512164.3.579.2.593 1944 Unknown [id number] 2.16.840.1.948491.3.579.2.593 1944 Unknown [id number] 2.16.840.1.776510.3.579.2.593 1944 Unknown [id number] 2.16.840.1.161143.3.579.2.593 1944 Unknown [id number] 2.16.840.1.577596.3.579.2.593 1944 Unknown [id number] 2.16.840.1.500991.3.579.2.593 1944 Unknown [id number] 2.16.840.1.457503.3.579.2.593 1944 Unknown [id number] 2.16.840.1.602857.3.579.2.593 1944 Unknown [id number] 2.16.840.1.578184.3.579.2.593 1944 Unknown [id number] 2.16.840.1.324310.3.579.2.593 1944 Unknown [id number] 2.16.840.1.172252.3.579.2.593 1944 Unknown [id number] 2.16.840.1.046166.3.579.2.593 1944 Unknown [id number] 2.16.840.1.215593.3.579.2.593 1944 Unknown [id number] 2.16.840.1.829321.3.579.2.593 1944 Unknown [id number] 2.16.840.1.963305.3.579.2.593 1944 Unknown [id number] 2.16.840.1.440691.3.579.2.593 1944 Unknown [id number] 2.16.840.1.348627.3.579.2.593 1944 Unknown [id number] 2.16.840.1.955663.3.579.2.125 9 Medicare Medicare Outpatient [id number] 2T [id number] Unknown [id number] 2.16.840.1.526228.3.579.2.593 Unknown [id number] 2.16.840.1.505848.3.579.2.593 Unknown [id number] 2.16.840.1.411566.3.579.2.531 Social History Date Type Detail Facility Start: 03-09-2011 End: 07-07-2022 Tobacco smoking status NHIS Ex-smoker [facility] Work Phone: End: 02-15-1975 History of tobacco use Current smoker [facility] Work Phone: End: 02-15-1975 History of tobacco use Cigarette Smoker [facility] Work Phone: Start: 04-08-2021 End: 02-26-2022 Alcohol intake Current drinker of alcohol (finding) [facility] Start: 1945 Sex Assigned At Not on file [facility] Start: 03-09-2011 End: 10-20-2022 Cigarettes smoked current (pack per day) - Reported 1 [facility] Work Phone: Start: 03-09-2011 End: 02-26-2022 Tobacco use and exposure Smokeless tobacco non-user [facility] Start: 09-25-2021 History SDOH Financial 5 [facility] Start: 09-25-2021 History SDOH Food Worry 1 [facility] Start: 09-25-2021 History SDOH Transpo rt Med 2 [facility] Start: 09-14-2021 End: 01-12-2022 Exposure to SARS-CoV-2 (event) Not sure [facility] Start: 02-26-2022 End: 10-20-2022 Sex Assigned At [facility] Work Phone: Start: 1945 Sex Assigned At Male F [facility] How hard is it for y ou to pay for the very basics like food, housing, medical care, and heating Not hard at all [facility] Work Phone: (I/We) worried shiloh er (my/our) food would run out before (I/we) got money to buy more. Never true [facility] Work Phone: In the past 12 month s, was there a time when you were not able to pay the mortgage or rent on time? No [facility] Work Phone: Start: 03-18-2023 Alcohol intake Ex-drinker (finding) [facility] How often to you hav e a drink containing alcohol? Never [facility] Medical Equipment Procedure Code Equipment Code Equipment Original Text Equipment Identifier Dates Tray Powerline S urecuff 5fr Polyurethane Catheter 1 Lumen Microintroducer - [id number] Start: 12-06-2021 Clinical Notes 06-05-2021 to 05-19-2023 Note Date & Type Note Facility 05-19-2023 Note [place] [facility] Progress Note Reason for visit: follow up, last seen 03/2021, HFrEF, PPM, CAD s/p CABG HPI: Alex Almonte is a 77 y.o. year old with past medical history of CAD s/p CABG x1 2012 and PCI to OM2 in 2017, HFrEF, HTN, sinus node dysfunction s/p PPM, neurogenic orthostatic hypotension, DM type II, ESRD s/p renal tx 03/2001, hx AKA amputation left leg d/t infection 200205/19/2023 He states he has been doing well since last seen. Denies any cardiac complaints. He is due to have his device check. However, he is apprehensive to have it checked. He feels like every time his device is checked he ends up in the ER. ------ He had hospital admission 11/2021 and was [...] at about 50-60 systolic. patient with friend/ dedicated local truck driver from facility, we will take patient to the ER for evaluation ---- --------- Per dr. Alvarez 03/2021 Mr. Almonte, [place] , presents to clinic for routine follow [...] of the right coronary artery with robust axoj-xx-qhwen collaterals. 5. Normal global left ventricular systolic [...] Follow up with Dr. Galvez in the [facility] in the next 2 weeks; he may follow up with Dr. Orosco as needed for interventional issues. 5. Follow up wi (more content not included)... [facility] 04-11-2023 Evaluation note Encounter Date Diagnosis Assessment [...] (ICD-10 - Z89.619) WC dependent. 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 He is being transported by a dedicated local truck driver. 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 documented in this encounterCapital Region Medical [id number] Evaluation note* Encounter Date Diagnosis Assessment Notes [...] are maintaining regular scheduled appts with their filling operator. No bleeding complications Dec, Hyperlipidemia LDL [...] balance and to avoid dehydration. Dec, terminal makeup operator (current) use of insulin (ICD-10 - Z79.4) [facility] Other 10-26-2023 Evaluation note* Encounter Date Diagnosis Assessment Notes Treatment Notes Treatment Clinical Notes Nov, Longstanding persistent atrial fibrillation (ICD-10 - I48.11) This patient is in NSR or rate controlled. This patient is anticoagulated to prevent thromboembolic events. They are maintaining regular scheduled appts with their filling operator. No bleeding complications Nov, Hyperlipidemia LDL [...] (current) use of insulin (ICD-10 - Z79.4) [facility] Other 09-28-2023 Evaluation note* Encounter Date Diagnosis [...] are maintaining regular scheduled appts with their filling operator. No bleeding complications Oct, Type 1 [...] - Z94.0) Continue routine surveillance labs. Oct, pen[facility]entiary (current) use of insulin (ICD-10 - Z79.4) [facility] Other 09-01-2023 Miscellaneous Notes* Telephone Encounter - Mary Martinez - 10/16/2022 1:08 PM EDT Pharmacy comment: REQUEST FOR 90 DAYS PRESCRIPTION. DX Code Needed. 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 No bleeding complications Sep, Type 1 [...] Z94.0) f/u transplant clinic Continue surveillance labs [facility] Other 08-08-2023 Miscellaneous Notes* Telephone Encounter - Ariadna Mcdowell Tech - 09/22/2022 8:58 AM EDT Pharmacy requesting refills as follows: Requested Prescriptions Pending Prescriptions Disp Refills tacrolimus IR (PROGRAF) 1 mg capsule Sig: Take 1 capsule by mouth DAILY AT 6 PM. Please review and advise. Ariadna Mcdowell, documented in this encounterTrihealth07-27-2023 Evaluation note* Encounter Date Diagnosis Assessment Notes Treatment Notes Treatment Clinical Notes Aug, Longstanding persistent atrial fibrillation (ICD-10 - I48.11) This patient is in NSR or rate controlled. This patient is anticoagulated to prevent thromboembolic events. They are maintaining regular scheduled appts with their filling operator. No s/s bleeding Aug, Type 1 [...] (ICD-10 - Z94.0) Continue close surveillance w/ IM5 Other 07-26-2023 NoteUT Electrophysiology Consult Note Reason for visit: [...] at about 50-60 systolic. patient with friend/ dedicated local truck driver from facility, we will take patient to the ER for evaluation --------- Per dr. Alvarez 03/2021 Mr. Almonte, [place] , presents to clinic for routine follow [...] of the right coronary artery with robust qwog-at-ntysu collaterals. 5. Normal global left ventricular systolic [...] Follow up with Dr. Galvez in the [facility] in the next 2 weeks; he may follow up with Dr. Orosco as needed for interventional issues. 5. Follow up with Dr. Devon Moreira as scheduled. PMH: Past Medical History: Diagnosis Date Abnormal ECG Arrhythmia Atrial fibrillation (CMS/HCC) Chronic kidney disease Coronary artery disease Diabetes mellitus (CMS/HCC) (more content not included)...[facility]07-26-2023 NotePatient here for 1.5 year follow up and device check. Lightheaded in the office today, as BP is very low. He denies chest pain, SOB, palpitations, and bleeding on warfarin. Had routine labs last week. Review of Systems Musculoskeletal: Positive for arthritis, joint pain and myalgias. Neurological: Positive for light-headedness. All other systems reviewed and are negative.[facility] 08-06-2022 Evaluation note* Encounter Date Diagnosis Assessment Notes [...] are maintaining regular scheduled appts with their filling operator. No bleeding complications Jul, Type 1 [...] risk for cerebrovascular and cardiovascular disease. Jul, terminal makeup operator (current) use of insulin (ICD-10 - Z79.4) Jul, Kidney transplant status (ICD-10 - Z94.0) Monthly labs, ongoing surveillance from transplant clinic [facility] Other 05-15-2023 Progress note Author Sadia Aguilar [facility] June 29, 2022 2:47pm Note Date/Time June 29, 2022 2:46p m [facility] [address] [place] [address] Wound Center Provider Note Signed Patient: Alex Almonte MR#: [id number] : 1945 Acct:[id number] Age/Sex: 76 / M Copies to: DO Sadia Whyte APRN~ HPI Date of Visit Date of Visit: Date of Service: 06/29/2022 Time of Service: 14:45 Narrative HPI: 12/30/21 lAex is a 76 year old male presenting to [facility] wound care for aninitial visit for eval and treatment of a sacral/coccyx area pressure ulcer. He resides at [facility]. There is an SPANISH TRANSLATOR present for the visit. Medicalhoney gel will [...] his brief that was cleaned by this engineering writer as well as another nursing staff [...] from initial visit here Mode of Arrival/ Whipped Topping Finisher: Facility vehicle Assistive Device Used Today: Wheelchair and Indra Lives with:: Care/Nursing Facility Appetite Description: Within Normal Limits Who helps w/ dressing change?: Nursing Facility Why Do You Need Help?: Can't Reach Ulcer, Limited mobility and Taxing effort to leave home Smoking Status: Former smoker [facility] Medical History (Updated 03/03/22 @ 14:41 [...] Ulcer/Injury Staging: Unstageable Bed Appearance: Beefy Red, Radisson, Yellow and Rolled Edges Percent of Wound [...] By: <Electronically signed by DAVID Aguilar> 06/29/[address] [facility] Work Phone: 1(856) 809-244905-11-2023 Evaluation note* Encounter Date Diagnosis Assessment Notes [...] are maintaining regular scheduled appts with their filling operator. No bleeding complications June, Hyperlipidemia LDL goal <100 (ICD-10 - E78.5) Instructed on diet and exercise with continued statin therapy.Discussed the beneficial effects of lowering cholesterol in reducing the risk for cerebrovascular and cardiovascular disease. June, penitentiary (current) use of insulin (ICD-10 - Z79.4) June, Kidney transplant status (ICD-10 - Z94.0) No s/s rejection [facility] Other 04-24-2023 Progress note Author Sadia Aguilar [facility] June 08, 2022 2:10pm Note Date/Time June 08, 2022 2:1 0pm [facility] [address] [place] [address] Wound Center Provider Note Signed Patient: Alex Almonte MR#: [id number] : 1945 Acct:[id number] Age/Sex: 76 / M Copies to: DO Sadia Whyte, BOARD CERTIFIED BEHAVIORAL ANALYST~ HPI Date of Visit Date of Visit: Date of Service: 06/08/2022 Time of Service: 14:07 Narrative HPI: 12/30/21 Alex is a 76 year old male presenting to [facility] wound care for aninitial visit for eval and treatment of a sacral/coccyx area pressure ulcer. He resides at [facility]. There is an SPANISH TRANSLATOR present for the visit. Medicalhoney gel will [...] his brief that was cleaned by this engineering writer as well as another nursing staff [...] from initial visit here Mode of Arrival/ Whipped Topping Finisher: Facility vehicle Assistive Device Used Today: Wheelchair and Indra Lives with:: Care/Nursing Facility Appetite Description: Within Normal Limits Who helps w/ dressing change?: Nursing Facility Why Do You Need Help?: Can't Reach Ulcer, Limited mobility and Taxing effort to leave home Smoking Status: Former smoker [facility] Medical History (Updated 03/03/22 @ 14:41 [...] Ulcer/Injury Staging: Unstageable Bed Appearance: Beefy Red, Radisson, Yellow and Rolled Edges Percent of Wound [...] DD/ Signed By: <Electronically signed by DAVID Augilar> 06/08/22 [address] [facility] Work Phone: 1(585) 300-290704-21-2023 Evaluation note* Encounter Date Diagnosis Assessment Notes [...] are maintaining regular scheduled appts with their filling operator. May, pen[facility]iary (current) use of insulin (ICD-10 - Z79.4) May, Kidney transplant status (ICD-10 - Z94.0) routine labs per clinic. 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 No open ulcerations present Pain controlled [facility] Other 03-27-2023 Progress note Author Sadia Aguilar [facility] May 11, 2022 1:41pm Note Date/Time May 11, 2022 1:4 0pm [facility] [address] [place] [address] Wound Center Provider Note Signed Patient: Alex Almonte MR#: [id number] : 1945 Acct:[id number] Age/Sex: 76 / M Copies to: DO Sadia Whyte, BOARD CERTIFIED BEHAVIORAL ANALYST~ HPI Date of Visit Date of Visit: Date of Service: 05/11/2022 Time of Service: 13:38 Narrative HPI: 12/30/21 Alex is a 76 year old male presenting to [facility] wound care for aninitial visit for eval and treatment of a sacral/coccyx area pressure ulcer. He resides at [facility]. There is an SPANISH TRANSLATOR present for the visit. Medicalhoney gel will [...] his brief that was cleaned by this engineering writer as well as another nursing staff [...] from initial visit here Mode of Arrival/ Whipped Topping Finisher: Facility vehicle Assistive Device Used Today: Wheelchair and Indra Lives with:: Care/Nursing Facility Appetite Description: Within Normal Limits Who helps w/ dressing change?: Nursing Facility Why Do You Need Help?: Can't Reach Ulcer, Limited mobility and Taxing effort to leave home Smoking Status: Former smoker [facility] Medical History (Updated 03/03/22 @ 14:41 [...] Ulcer/Injury Staging: Unstageable Bed Appearance: Beefy Red, Radisson and Yellow Percent of Wound Bed Granulated/Red: [...] <Electronically signed by DAVID Aguilar> 05/11/22 [address] [facility] Work Phone: 1(840) 898-269803-23-2023 Evaluation note* Encounter Date Diagnosis Assessment Notes [...] are maintaining regular scheduled appts with their filling operator. Apr, Type 1 diabetes mellitus with [...] reviewed at the office visit Apr, terminal makeup operator (current) use of insulin (ICD-10 - Z79.4) Apr, Kidney transplant status (ICD-10 - Z94.0) Serial labs by tatiana Schneider [place] [facility] Other 03-10-2023 NoteHNO ID: [id number] Author: Keyur Brown MD Service: ? Author Type: Physician Type: Progress Notes Filed: 04/24/2022 10:32 AM Note Text: Encounter opened in error, patient not seen.[facility]02-28-2023 Progress note Author Sadia Aguilar [facility] April 14, 2022 2:19pm Note Date/Time April 14, 2022 2:18pm [facility] [address] [place] [address] Wound Center Provider Note Signed Patient: Alex Almonte MR#: [id number] : 1945 Acct:[id number] Age/Sex: 76 / M Copies to: DO Sadia Whyte APRN~ HPI Date of Visit Date of Visit: Date of Service: 04/14/2022 Time of Service: 14:18 Narrative HPI: 12/30/21 Alex is a 76 year old male presenting to [facility] wound care for aninitial visit for eval and treatment of a sacral/coccyx area pressure ulcer. He resides at [facility]. There is an SPANISH TRANSLATOR present for the visit. Medicalhoney gel will [...] his brief that was cleaned by this engineering writer as well as another nursing staff [...] from initial visit here Mode of Arrival/ Whipped Topping Finisher: Facility vehicle Assistive Device Used Today: Wheelchair and Indra Lives with:: Care/Nursing Facility Appetite Description: Within Normal Limits Who helps w/ dressing change?: Nursing Facility Why Do You Need Help?: Can't Reach Ulcer, Limited mobility and Taxing effort to leave home Smoking Status: Former smoker [facility] Medical History (Updated 03/03/22 @ 14:41 [...] Ulcer/Injury Staging: Unstageable Bed Appearance: Beefy Red, Radisson and Yellow Percent of Wound Bed Granulated/Red: [...] DD/ 17 Signed By: <Electronically signed by DAVDI Aguilar> 04/14/[address] [facility] Work Phone: 1(564) 559-303102-16-2023 NotePatient Outreach (KIMBERLY) ALEX ALMONTE ([id number]) 1945 M TRN Date Time Provider Department 04/02/22 VAN OLIVAREZ During your visit today, we recorded the following information about you: Allergies As of Date: 04/02/2022 Noted Allergy Reaction PYRIDOSTIGMINE BROMIDE 08/04/2021 8 - GI Upset Date Reviewed: 02/26/2022 Reviewed by: Braden Abel MA - Fully Assessed Visit Diagnosis:Screening for genitourinary condition [Z13.89] Order(s):URINALYSIS, REFLEX MICROSCOPIC [[id number]] Order #: [id number] Prescriptions as of 04/06/2022 - tacrolimus IR [...] by mouth daily with lunch. 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/2002 DIABETES UNCOMPL ADULT-UNCONTRLLED [OPO6323] 02/24/2002 KIDNEY TRANSPLANT STATUS [Z94.0] 09/07/2003 PROPHYLACTIC IMMUNOTHERAPY [Z29.8] 07/30/2006 [facility] STEROIDS [[id number]] 07/30/2006 VITAMIN D DEFICIENCY NOS [E55.9] 09/07/2008 [...] diabetes mellitus with diabetic peripher*11/29/2021 Atherosclerosis of [place] artery of extremity w*11/29/2021 Malnutrition of moderate degree (HCC) [E44.0] 12/01/2021 Dermatitis associated with moisture [L30.8] 12/04/2021 Encounter Status:Closed by CONCETTA HOBBS on 04/06/22[facility] 03-30-2022 Miscellaneous Notes* Telephone Encounter - Van [...] to pharmacy. Katina Duque documented in this encounterTrihealth02-07-2023 Progress note Author Sadia Aguilar [facility] March 24, 2022 3:00pm Note Date/Time March 24, 2022 2 :59pm [facility] [address] [place] [address] Wound Center Provider Note Signed Patient: Alex Almonte MR#: [id number] : 1945 Acct:[id number] Age/Sex: 76 / M Copies to: DO Sadia Whyte APRN~ HPI Date of Visit Date of Visit: Date of Service: 03/24/2022 Time of Service: 14:58 Narrative HPI: 12/30/21 Alex is a 76 year old male presenting to [facility] wound care for aninitial visit for eval and treatment of a sacral/coccyx area pressure ulcer. He resides at [facility]. There is an SPANISH TRANSLATOR present for the visit. Medicalhoney gel will [...] his brief that was cleaned by this engineering writer as well as another nursing staff [...] from initial visit here Mode of Arrival/ Whipped Topping Finisher: Facility vehicle Assistive Device Used Today: Wheelchair and Indra Lives with:: Care/Nursing Facility Appetite Description: Within Normal Limits Who helps w/ dressing change?: Nursing Facility Why Do You Need Help?: Can't Reach Ulcer, Limited mobility and Taxing effort to leave home Smoking Status: Former smoker [facility] Medical History (Updated 03/03/22 @ 14:41 [...] Ulcer/Injury Staging: Unstageable Bed Appearance: Beefy Red, Radisson and Yellow Percent of Wound Bed Granulated/Red: [...] <Electronically signed by DAVID Aguilar> 03/24/22 [address] [facility] Work Phone: 1(277) 588-582701-17-2023 Progress note Author Sadia Aguilar [facility] March 03, 2022 2:41pm Note Date/Time March 03, 2022 2 :41pm [facility] [address] [place] [address] Wound Center Provider Note Signed Patient: Alex Almonte MR#: [id number] : 1945 Acct:[id number] Age/Sex: 76 / M Copies to: Devon Moreira,DO Sadia Aguilar APRN~ HPI Date of Visit Date of Visit: Date of Service: 03/03/2022 Time of Service: 14:38 Narrative HPI: 12/30/21 Alex is a 76 year old male presenting to [facility] wound care for aninitial visit for eval and treatment of a sacral/coccyx area pressure ulcer. He resides at [facility]. There is an SPANISH TRANSLATOR present for the visit. Medicalhoney gel will [...] his brief that was cleaned by this engineering writer as well as another nursing staff [...] from initial visit here Mode of Arrival/ Whipped Topping Finisher: Facility vehicle Assistive Device Used Today: Wheelchair and Indra Lives with:: Care/Nursing Facility Appetite Description: Within Normal Limits Who helps w/ dressing change?: Nursing Facility Why Do You Need Help?: Can't Reach Ulcer, Limited mobility and Taxing effort to leave home Smoking Status: Former smoker [facility] Medical History (Updated 03/03/22 @ 14:41 [...] Ulcer Pressure Ulcer/Injury Staging: Unstageable Bed Appearance: Radisson and Yellow Percent of Wound Bed Granulated/Red: 90 Percent of Devitalized: 10 Length (cm): 2.2 Width (cm): 1.8 Depth (cm): 1.9 CM Sq: 3.960 Surrounding Tissue Appearance: Radisson, Hyperpigmented and Satellite lesions Surrounding Tissue Temp: [...] 15 Dictated By: Sadia Aguilar APRN DD/ 143 Signed By: <Electronically signed by DAVID Aguilar> 03/03/22 [address] [facility] Work Phone: 1(214) 246-617301-13-2023 Miscellaneous Notes* Telephone Encounter - RAUL Davidson - 02/27/2022 10:24 AM EST Patient phones requesting refills as follows: Per pts sister takes 1 mg in AM and 1 mg in PM Requested Prescriptions Pending Prescriptions Disp Refills tacrolimus IR (PROGRAF) 1 mg capsule Sig: Take 2 capsules by mouth DAILY (6 AM). Please review and advise. RAUL Davidson documented in this encounterTrihealth01-12-2023 NoteHNO ID: [id number] Author: Hina Peterson MD Service: ? Author Type: Physician Type: Progress Notes Filed: 02/26/2022 4:31 PM Note Text: [facility] [place] DEPARTMENT OF VASCULAR SURGERY OUTPATIENT VISIT DATE [...] PAST MEDICAL HISTORY Diagnosis Date Atherosclerosis of [place] artery of extremity with ulceration ([facility]) 11/29/2021 BPH (benign prostatic hyperplasia) CAD (coronary artery disease) 2016 s/p PCI 2016 and CABG 2019 Diabetes mellitus ([facility]) Diabetic neuropathy ([facility]) Diabetic retinopathy ([facility]) HTN (hypertension) Hyperlipidemia Impaired vision in both eyes KIDNEY TRANSPLANT STATUS 09/07/2003 ESRD s/p renal transplant in 2001 on chronic immunosuppression . Patient on mycophenolate mofetil , cellcept and prednisone Mixed hyperlipidemia due to type 2 diabetes mellitus ([facility]) 11/29/2021 Osteomyelitis ([facility]) 11/29/2021 Paroxysmal atrial fibrillation ([facility]) Renal transplant, status post SA node dysfunction ([facility]) s/p pacemaker Type 2 diabetes mellitus with diabetic neuropathy, with long-term current use of insulin ([facility]) 02/24/2002 PAST SURGICAL HISTORY Procedure Laterality Date [...] by mouth daily with lunch. Magic Cup [place] with lunch aspirin, enteric coated (ASPIRIN, ENTERIC COATED) 81 mg EC tablet Take 1 tablet by mouth once daily. predniSONE (DELTASONE) 5 mg tablet TAKE 1 TABLET BY MOUTH EVERY DAY oxyCODONE IR (ROXICODONE) 5 mg immediate release tablet 1-2 tablets by ORAL/FEEDING TUBE route every 3 hours as needed. Food Supplement, Lactose-Free (ENSURE MAX (more content not included)... [facility]01-12-2023 History of Present illness Narrative* Hina Peterson MD - 02/26/2022 4:25 PM EST Images from the original note were not included. [facility] [place] DEPARTMENT OF VASCULAR SURGERY OUTPATIENT VISIT DATE [...] maxwell and sutures were removed at the [facility] facility. He comes here with a lateral wound eschar. He denies any fevers, chills, or any drainage. He is on anticoagulation. PAST MEDICAL HISTORY Diagnosis Date Atherosclerosis of [place] artery of extremity with ulceration ([facility]) 11/29/2021 BPH (benign prostatic hyperplasia) CAD (coronary [...] Renal transplant, status post SA node dysfunction ([facility]) s/p pacemaker Type 2 diabetes mellitus with diabetic neuropathy, with long-term current use of insulin ([facility]) 02/24/2002 PAST SURGICAL HISTORY Procedure Laterality Date [...] by mouth daily with lunch. Magic Cup [place] with lunch aspirin, enteric coated (ASPIRIN, ENTERIC [...] reviewed for today's visit: None IMPRESSION: Mr. Alomnte is a 76 year old male who [...] 2022 TIME: 4:26 PM documented in this encounterTrihealth01-05-2023 Miscellaneous Notes* Telephone Encounter - Gwen Beard [...] 04/13/2022. Contact Name (if not the patient) Zevjesús's nurse Home and cell number(Ask for Alex's nurse) [phone] Diagnosis 4 mo f/u wound check Yumiko Mcclain documented in this encounterTrihealth01-05-2023 Miscellaneous Notes* Telephone Encounter - Augusta Medrano RN - 02/19/2022 11:11 AM EST Alex Almonte's nursing facility, [facility], called regarding elevated tacrolimus level (23.9). Spoke with bedside nurse, Zoe, today. Level is from last week- unable to clearly determine if medications were held prior to lab work. Reviewed with nurse morning labs should occur prior to lab draws. Patient is scheduled for repeat labs tomorrow. Will assess new level. Augusta Medrano RN documented in this encounterTrihealth01-04-2023 Miscellaneous Notes* Telephone Encounter - Martina Rossi [...] advise. Mercedez Tavares MA documented in this encounterTrihealth12-27-2022 Progress note Author Sadia Aguilar [facility] February 10, 2022 3:47pm Note Date/Time February 10, 2022 3:47pm [facility] [address] [place] [address] Wound Center Provider Note Signed Patient: Alex Almonte MR#: [id number] : 1945 Acct:[id number] Age/Sex: 76 / M Copies to: DO Sadia Whyte APRN~ HPI Date of Visit Date of Visit: Date of Service: 02/10/2022 Time of Service: 15:44 Narrative HPI: 12/30/21 Alex is a 76 year old male presenting to [facility] wound care for aninitial visit for eval and treatment of a sacral/coccyx area pressure ulcer. He resides at [facility]. There is an SPANISH TRANSLATOR present for the visit. Medicalhoney gel will [...] his brief that was cleaned by this engineering writer as well as another nursing staff member, few weeks to follow up Subjective Pain Coccyx: Pain Description: Intermittent Pain Intensity: 0 Wound/Ulcer History When did wound start?: 4 weeks ago- from initial visit here Mode of Arrival/ Whipped Topping Finisher: Facility vehicle Assistive Device Used Today: Wheelchair and Indra Lives with:: Care/Nursing Facility Appetite Description: Within Normal Limits Who helps w/ dressing change?: Nursing Facility Why Do You Need Help?: Can't Reach Ulcer, Limited mobility and Taxing effort to leave home Smoking Status: Former smoker [facility] Medical History (Updated 01/20/22 @ 14:21 [...] Ulcer Pressure Ulcer/Injury Staging: Unstageable Bed Appearance: Radisson and Yellow Percent of Wound Bed Granulated/Red: 90 Percent of Devitalized: 10 Length (cm): 2.5 Width (cm): 2.3 Depth (cm): 2.1 CM Sq: 5.750 Surrounding Tissue Appearance: Radisson, Hyperpigmented and Satellite lesions Surrounding Tissue Temp: [...] <Electronically signed by DAVID Aguilar> 02/10/22 [address] [facility] Work Phone: 1(922) 201-425012-22-2022 NoteHNO ID: [id number] Author: Asia Pike MD Service: ? Author Type: Physician Type: Progress Notes Filed: 02/05/2022 9:38 AM Note Text: [facility] Urologic and [facility] [place] Transplant Follow up Portions of this note [...] Indra scale at [facility]: 166.2 lbs per patient. Bed sore on coccyx causing discomfort. Being changed regularly at SNF- reported to be smaller around but still as deep. Patient not very up to date with medications. Patient brought paperwork from [employer] with all medications being received. Patient unsure if they have been drawing labs regularly. Last Tac from 01/19: 12.9 and K 5.9. In need of current labs. Lab orders will be sent with patient and follows as below: Kidney and Pancreas Transplant Standing [facility] [address] [place], [place] [address] February 05, 2022 Alex Almonte 1945 [id number] STANDARD TESTING: Diagnosis Codes: Z94.0 Kidney Transplant [...] AT YOUR LABORATORY FACILITY AND FAX TO [phone]. PLEASE CALL [phone]. Provider: Dr. Pike Current Outpatient Medications Medication [...] by mouth daily with lunch. Magic Cup [place] with lunch aspirin, enteric coated (ASPIRIN, ENTERIC COATED) 81 mg EC tablet Take 1 tablet by mouth once daily. atorvastatin (LIPITOR) 40 mg tablet 1 tablet by ORAL/FEEDING TUBE route daily at bedtime. (more content not included)...[facility]12-22-2022 History of Present illness Narrative* Asia Pike MD - 02/05/2022 8:20 AM EST Images from the original note were not included. [facility] Urologic and Kid[facility] [place] Transplant Follow up Portions of this note [...] Indra scale at [facility]: 166.2 lbs per patient. Bed sore on coccyx causing discomfort. Being changed regularly at [facility]- reported to be smaller around but still as deep. Patient not very up to date with medications. Patient brought paperwork from [employer] with all medications being received. Patient unsure if they have been drawing labs regularly. Last Tac from 01/19: 12.9 and K 5.9. In need of current labs. Lab orders will be sent with patient and follows as below: Kidney and Pancreas Transplant Standing Lab Orders [address] [place], [place] [address] February 05, 2022 Alex Almonte 1945 [id number] STANDARD TESTING: Diagnosis Codes: Z94.0 Kidney Transplant [...] AT YOUR LABORATORY FACILITY AND FAX TO [phone]. PLEASE CALL [phone]. Provider: Dr. Pike Current Outpatient Medications Medication [...] by mouth daily with lunch. Magic Cup [place] with lunch aspirin, enteric coated (ASPIRIN, ENTERIC [...] complexity. Asia Pike MD documented in this encounterTrihealth12-06-2022 Progress note Author Sadia Aguilar [facility] January 20, 2022 2:21pm Note Date/Time January 20, 2022 2 :21pm [facility] [address] [place] [address] Wound Center Provider Note Signed Patient: Alex Almonte MR#: [id number] : 1945 Acct:[id number] Age/Sex: 76 / M Copies to: DO Sadia Whyte APRN~ HPI Date of Visit Date of Visit: Date of Service: 01/20/2022 Time of Service: 14:17 Narrative HPI: 12/30/21 Alex is a 76 year old male presenting to [facility] wound care for aninitial visit for eval and treatment of a sacral/coccyx area pressure ulcer. He resides at [facility]. There is an SPANISH TRANSLATOR present for the visit. Medicalhoney gel will [...] from initial visit here Mode of Arrival/ Whipped Topping Finisher: Facility vehicle Assistive Device Used Today: Wheelchair and Indra Lives with:: Care/Nursing Facility Appetite Description: Within Normal Limits Who helps w/ dressing change?: Nursing Facility Why Do You Need Help?: Can't Reach Ulcer, Limited mobility and Taxing effort to leave home Smoking Status: Former smoker [facility] Medical History (Updated 01/20/22 @ 14:21 [...] Ulcer Pressure Ulcer/Injury Staging: Unstageable Bed Appearance: Radisson and Yellow Percent of Wound Bed Granulated/Red: 40 Percent of Devitalized: 60 Length (cm): 5.2 Width (cm): 3.4 Depth (cm): 1.8 CM Sq: 17.680 Surrounding Tissue Appearance: Radisson and Hyperpigmented Surrounding Tissue Temp: Warm Drainage [...] DAVID Aguilar> 01/20/[address] [facility] Work Phone: 1(571) 879-818412-06-2022 Miscellaneous Notes* Telephone Encounter - Van Olivarez APRN.CNP - 01/20/2022 1:12 PM EST Labs noted from yesterday. Pt is currently residing at [facility], I spoke with the Nurse, the results has been addressed by Physician caring for pt. He had been placed on Chlor Con and this has been discontinued and hyperkalemia has been treated. Van Olivarez APRN.CNP documented in this encounterTrihealth11-28-2022 Surgical operation note* Brief Op Note - Misbah Landis PA-C - 01/12/2022 10:41 AM EST BRIEF OPERATIVE / PROCEDURE NOTE LOG ID: [id number] SURGERY/PROCEDURE DATE: 01/12/2022 INCISION/PROCEDURE START TIME: 10:32 AM INCISION CLOSE/PROCEDURE END TIME: 10:35 AM SURGEON(S)/PROCEDURALIST(S) AND WEFT STRAIGHTENER(S): Misbah Landis PA-C SURGERY/PROCEDURE(S): Removal tunneled vascular access catheter under local anesthesia ANESTHESIA: Procedural Sedation FINDINGS: Catheter removed intact ESTIMATED BLOOD LOSS: 0 ml SPECIMENS: None COMPLICATIONS: None PRE-OP/PRE-PROCEDURE DIAGNOSIS: Foot Ulcer POST-OP/POST-PROCEDURE DIAGNOSIS: Same as Preop SIGNATURE: Misbah Landis PA-C PATIENT NAME: Alex Almonte DATE: January 12, 2022 TIME: 10:42 AM documented in this encounterTrihealth11-22-2022 Nurse Note* Laxmi Archibald RN - 01/06/2022 1:55 PM EST Pre-procedure instructions: Contacted patient's sister, Munira Brothers and nurse at [facility] ([phone]) andconfirmed appt. for Gerhard removal scheduled on 01/12/22, at [facility]. If instructions are not followed your procedure [...] signed. Arrival at 9:30am to desk B-1 ([facility]) and check in for your procedure. Methods Analyst/Transportation: How will you be arriving for your procedure? Ambulance service. To be arranged by [facility]. If you develop any of the following symptoms before your procedure, please call [phone]. Chills, joint pain, rash, sore throat, cough, loss of smell, reddened eyes, vomiting, abdominal pains, diarrhea, loss of taste, severe headache, weakness, bruising or bleeding, fever, muscle pain, shortness of breath Recovery expectations: You can expect to be in recovery for 30 minutes following the procedure. Written instructions provided to patient via [employer] If you have any questions please call [phone] documented in this encounterTrihealth11-15-2022 Progress note Author Sadia Aguilar [facility] December 30, 2021 1:49pm Note Date/Time December 30, 2021 1:49pm [facility] [address] [place] [address] Wound Center Provider Note Signed Patient: Alex Almonte MR#: [id number] : 1945 Acct:[id number] Age/Sex: 76 / M Copies to: DO Sadia Whyte APRN~ HPI Date of Visit Date of Visit: Date of Service: 12/30/2021 Time of Service: 13:44 Narrative HPI: 12/30/21 Alex is a 76 year old male presenting to [facility] wound care for aninitial visit for eval and treatment of a sacral/coccyx area pressure ulcer. He resides at [facility]. There is an SPANISH TRANSLATOR present for the visit. Medicalhoney gel will [...] start?: 4 weeks ago Mode of Arrival/ Whipped Topping Finisher: Facility vehicle Assistive Device Used Today: Wheelchair and Indra Lives with:: Care/Nursing Facility Appetite Description: Within Normal Limits Who helps w/ dressing change?: Nursing Facility Why Do You Need Help?: Can't Reach Ulcer, Limited mobility and Taxing effort to leave home Smoking Status: Former smoker [facility] Medical History (Updated 12/30/21 @ 13:49 [...] 0.1 CM Sq: 38.500 Surrounding Tissue Appearance: Radisson and Hyperpigmented Surrounding Tissue Temp: Warm Drainage [...] <Electronically signed by DAVID Aguilar> 12/30/21 [address] [facility] Work Phone: 1(891) 653-453111-15-2022 History of Present illness Narrative* Paresh Fonseca [...] is currently at [facility] in [facility] Seen on video together with Zoe -history obtained from bedside nursing. he is getting up in a chair, working with PT diet is back to regular hes doing well. 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 has scabs on the R lateral side but no wound care concerns. It continues to heal. He has a follow-up with vascular surgery later December 2021. has a sacral wound -- he has local wound care following this at [facility] WBC 6.0, creatinine -- 0.8. alt [...] mouth. Take one (1) tablet M-W-F tacrolimus IR (PROGRAF) 1 mg capsule Take [...] by mouth daily with lunch. Magic Cup [place] with lunch aspirin, enteric coated (ASPIRIN, ENTERIC [...] is a 76 year old male from [facility]. Here today for copat follow-up for vancomycin x4 weeks for MRSA bacteremia He was transferred from [facility] on 11/28/2021 for further surgical management of infected right heel He has a past medical history of kidney transplant in 2001, left AKA from previously infected foot ulcers and multiple foot surgeries. History of PAD CAD status post CABG, diabetes, atrial fibrillatioN He originally presented [facility] for having altered mental status and right [...] I&D at [facility] on 11/24/2021. 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 4. CKD - s/p gerhard placement 5. immunocompromised Status post right open above the ankle [id number]/17 - Enterobacter and MRSA from cultures Gram-positive [...] will need to coordinate with his SNF [phone] --our ID office will need to arrange for IR gerhard removal. Return to ID as needed 10 Minutes spent via virtual visit. SIGNATURE: Paresh Fonseca MD PATIENT NAME: Alex Almonte DATE: December 30, 2021 TIME: 9:52 AM documented in this encounterTrihealth11-01-2022 Miscellaneous Notes* Telephone Encounter - Sulma Pardo - 12/16/2021 3:13 PM EDT Pt occupational therapy program director is requesting orders for Stomp ampushield to be taken off pressure relief because it is causing sores on the thigh. Thanks, Sulma Pardo [employer] documented in this encounterTrihealth10-31-2022 Miscellaneous Notes* Telephone Encounter - Gwen Alfredo Adm Asst I - 12/15/2021 4:11 PM EDT Rupa LYLES from [facility] [phone] called to report IV Vancomycin was started until today. Patient missed 3 days, should patient makeup missed doses? Please advise. Gwen Alfredo Adm Asst I documented in this encounterTrihealth10-21-2022 Instructions* Patient Instructions* Paresh Fonseca MD - [...] serious illness Are taking any medications (prescription, juxu-kue-wyrfllt, vitamins, or herbal products) How will I receive EVUSHELD? EVUSHELD consists of two investigational medicines, tixagevimab and cilgavimab. You will receive 1 dose of EVUSHELD, consisting of 2 separate injections (tixagevimab and cilgavimab). EVUSHELD will be given to you by your healthcare provider as 2 intramuscular injections, given one after the other. Viruses can plant changer time (mutate) and develop into a [...] caused by certain SARS-CoV-2 variants: Viruses can plant changer time (mutate) and develop into a [...] treatment or prevention of COVID-19 go to https://www.fda.gov/djvelphbi-hvwgolewwyfs-nhm- response/wxl-ohwje-mkrfvlykjt-zhb-pqsize-fcabqjtqt/xgmbsyzvs-fne-sejmfivhsijin for more information. It is your choice [...] not go away. Report side effects to [employer] at www.fda.gov/medGameMakitch or call 3-802-ZFV-1088 or call [employer] . Additional Information If you have questions, visit the website or call the telephone number provided below. Website Telephone number http://www.Luxola How can I learn more about COVID-19? Ask your healthcare provider. Visit https://www.cdc.gov/COVID19 Contact your local or state public health department. What is an Emergency Use Authorization? The [place] FDA has made EVUSHELD (tixagevimab co-packaged with cilgavimab) available under an emergency access mechanism called an Emergency Use Authorization EUA. The EUA is supported by a Meter Reader of Health and Human Service (HHS) declaration [...] monohydrate, polysorbate 80, sucrose, water. Distributed by: [employer] [place], [place] Manufactured for: [employer] [place], [place] [employer] 2021. All rightsreserved. documented in this encounterTrihealth10-21-2022 Miscellaneous Notes* Telephone Encounter - Paresh Fonseca MD - 12/05/2021 3:05 PM EDT Evusheld (tixagevimab/cilgavimab) Eligibility and Patient Discussion The patient agrees to receive Evusheld (tixagevimab 300 mg and cilgavimab 300 mg) at [facility]. The patient verbalized understanding of repeating a COVID test 72 hours prior to the injections. called up patient in response to her Superfishhart message today she tested covid negative on a rapid test on Wednesday this week Discussed evushed fact sheet and she agrees to proceed she will retest again today to be scheduled for Friday 12/08 at [facility] Paresh Fonseca MD documented in this encounterTrihealth10-03-2022 Instructions* Patient Instructions* No Reeder DO - 11/17/2021 4:26 PM EDT -- continue coumadin -- will get vascular ultrasound for vein and artery of your right leg -- will have you see my interventional cardiology partner regarding your peripheral artery disease and if your artery disease is impairing your wound healing for the leg ulcer documented in this encounterTrihealth10-03-2022 History of Present illness Narrative* No Reeder DO - 11/17/2021 3:53 PM EDT Images from the original note were not included. [facility] [place] [facility] Department of Cardiovascular Medicine SECTION [...] scan. Leg elevation. No Reeder DO, [facility] Vascular Medicine documented in this encounterTrihealth08-16-2022 History of Past illness Narrative* Problem Noted Date Resolved Date Altered tissue perfusion documented as of this encounter (statuses as of 09/30/2021) [address]16-2022 History of Past illness Narrative* Problem Noted Date Resolved Date Altered tissue perfusion documented as of this encounter (statuses as of 10/09/2021) [address]16-2022 History of Past illness Narrative* Problem Noted Date Resolved Date Altered tissue perfusion documented as of this encounter (statuses as of 11/18/2021) [address]16-2022 History of Past illness Narrative* Problem Noted Date Resolved Date Altered tissue perfusion documented as of this encounter (statuses as of 12/01/2021) [address]16-2022 History of Past illness Narrative* Problem Noted Date Resolved Date Altered tissue perfusion documented as of this encounter (statuses as of 12/05/2021) [address]16-2022 History of Past illness Narrative* Problem Noted Date Resolved Date Altered tissue perfusion documented as of this encounter (statuses as of 12/08/2021) [address]16-2022 History of Past illness Narrative* Problem Noted Date Resolved Date Altered tissue perfusion 08/16/2 022 documented as of this encounter (statuses as of 12/08/2021) [address]16-2022 History of Past illness Narrative* Problem Noted Date Resolved Date Altered tissue perfusion 2 022 documented as of this encounter (statuses as of 12/12/2021) [address]16-2022 History of Past illness Narrative* Problem Noted Date Resolved Date Altered tissue perfusion 2 022 documented as of this encounter (statuses as of 12/15/2021) [address]16-2022 History of Past illness Narrative* Problem Noted Date Resolved Date Altered tissue perfusion 2 022 documented as of this encounter (statuses as of 12/16/2021) [address]16-2022 History of Past illness Narrative* Problem Noted Date Resolved Date Altered tissue perfusion 2 022 documented as of this encounter (statuses as of 12/31/2021) [address]16-2022 History of Past illness Narrative* Problem Noted Date Resolved Date Altered tissue perfusion 2 022 documented as of this encounter (statuses as of 01/13/2022) [address]16-2022 History of Past illness Narrative* Problem Noted Date Resolved Date Altered tissue perfusion 09/30/2 022 documented as of this encounter (statuses as of 01/20/2022) [address]16-2022 History of Past illness Narrative* Problem Noted Date Resolved Date Altered tissue perfusion 2 022 documented as of this encounter (statuses as of 02/06/2022) [address]16-2022 History of Past illness Narrative* Problem Noted Date Resolved Date Altered tissue perfusion 16/2 022 documented as of this encounter (statuses as of 02/20/2022) [address]16-2022 History of Past illness Narrative* Problem Noted Date Resolved Date Altered tissue perfusion 16/2 022 documented as of this encounter (statuses as of 02/26/2022) [address]16-2022 History of Past illness Narrative* Problem Noted Date Resolved Date Altered tissue perfusion 16/2 022 documented as of this encounter (statuses as of 02/27/2022) [address]16-2022 History of Past illness Narrative* Problem Noted Date Resolved Date Altered tissue perfusion documented as of this encounter (statuses as of 03/21/2022) [address]16-2022 History of Past illness Narrative* Problem Noted Date Resolved Date Altered tissue perfusion documented as of this encounter (statuses as of 03/30/2022) [address]16-2022 History of Past illness Narrative* Problem Noted Date Resolved Date Altered tissue perfusion documented as of this encounter (statuses as of 04/06/2022) [address]16-2022 History of Past illness Narrative* Problem Noted Date Resolved Date Altered tissue perfusion documented as of this encounter (statuses as of 05/13/2022) [address]16-2022 History of Past illness Narrative* Problem Noted Date Diagnosed Date Resolved Date Altered tissue perfusion documented as of this encounter (statuses as of 2022) [address]16-2022 History of Past illness Narrative* Problem Noted Date Diagnosed Date Resolved Date Altered tissue perfusion documented as of this encounter (statuses as of 10/29/2022) [facility] Miscellaneous Notes* Telephone Encounter - Katina Duque [...] to pharmacy. Katina Duque documented in this encounterTrihealth05-31-2022 Miscellaneous Notes* Telephone Encounter - Van Olivarez APRN.CNP - 07/15/2021 9:50 AM EDT The following approved medication requests have been transmitted electronically. Signed Prescriptions Disp Refills predniSONE (DELTASONE) 5 mg tablet 90 tablet 3 Sig: TAKE 1 TABLET BY MOUTH EVERY DAY RILEY: No Authorizing Provider: VAN OLIVAREZ APRN.CNP * Telephone Encounter - Rosibel Link Adm - 07/15/2021 9:32 AM EDT Patient phones requesting refills as follows: Pending Prescriptions Disp Refills PREDNISONE 5 MG TABLET 90 tablet 3 Sig: TAKE 1 TABLET BY MOUTH EVERY DAY RILEY: Yes Please review and advise. Rosibel Link Adm documented in this encounterTrihealth04-21-2022 Miscellaneous Notes* Telephone Encounter - Van Olivarez APRN.CNP - 06/05/2021 4:46 PM EDT Spoke with pt regarding latest results, scr. at baseline. TAC level 8.6 prev two levels in 5 range.He believes latest level would be 12hr trough. No changes for now, if next level >7, can consider if reduction appropriate. He understands. Van Olivarez APRN.CNP [facility] Diagnosis Screening for genitourinary condition Screening for other and unspecified genitourinary condition documented in this encounter [facility] note* Diagnosis Acute deep vein thrombosis (DVT) of proximal end of right lower extremity (HCC)- Primary PAD (peripheral artery disease) ([facility]) Peripheral vascular disease, unspecified Nonhealing ulcer of heel ([facility]) Anticoagulation management encounter Encounter for therapeutic drug monitoring [facility] Diagnosis Encounter for prophylactic measures, unspecified- Primary documented in this encounter [facility] note* Diagnosis Kidney replaced by transplant- Primary documented in this encounter [facility] note* Diagnosis MRSA bacteremia- Primary Bacteremia Diabetic foot ulcer with osteomyelitis ([facility]) Type II or unspecified type diabetes mellitus with other specified manifestations, not stated as uncontrolled ILIANA (acute kidney injury) ([facility]) Acute kidney failure, unspecified documented in this encounter [facility] note* Diagnosis Kidney replaced by transplant- Primary 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 documented in this encounter [facility] note* Diagnosis Hx of BKA, [...] (HCC) Atrial fibrillation documented in this encounter [facility] note* Diagnosis Screening for genitourinary condition Screening for other and unspecified genitourinary condition documented in this encounter [facility] note* Diagnosis Onset Date Resolution Status At high risk for skin breakdown chronic Diabetes chronic Fecal incontinence chronic Limited mobility chronic Poor appetite chronic Pressure ulcer of sacral region, unstageable chronic Candidiasis resolved [facility] Work Phone: Evaluation noteNo Sketch[employer]ortDelta ID Other Evaluation note* Diagnosis Kidney replaced by transplant- Primary documented in this encounter [facility] note* Diagnosis Type 1 diabetes mellitus with [...] COLONOSCOPY 1995,2001, 2014 Hospitalization History see above [employer] Other Progress note Author Sadia Aguilar [facility] July 20, 2022 1:48pm Note Date/Time July 20, 2022 1:48p m [facility] [address] [place] [address] Wound Center Provider Note Signed Patient: Alex Almonte MR#: [id number] : 1945 Acct:[id number] Age/Sex: 76 / M Copies to: Devon Moreira,DO Sadia Aguilar, BOARD CERTIFIED BEHAVIORAL ANALYST~ HPI Date of Visit Date of Visit: Date of Service: 07/20/2022 Time of Service: 13:46 Narrative HPI: 12/30/21 Alex is a 76 year old male presenting to [facility] wound care for aninitial visit for eval and treatment of a sacral/coccyx area pressure ulcer. He resides at [facility]. There is an SPANISH TRANSLATOR present for the visit. Medicalhoney gel will [...] his brief that was cleaned by this engineering writer as well as another nursing staff [...] from initial visit here Mode of Arrival/ Whipped Topping Finisher: Facility vehicle Assistive Device Used Today: Wheelchair and Indra Lives with:: Care/Nursing Facility Appetite Description: Within Normal Limits Who helps w/ dressing change?: Nursing Facility Why Do You Need Help?: Can't Reach Ulcer, Limited mobility and Taxing effort to leave home Smoking Status: Former smoker [facility] Medical History (Updated 03/03/22 @ 14:41 [...] <Electronically signed by DAVID Aguilar> 07/20/22 [address] [facility] Work Phone: Reason for referral (narrative)* Outpatient Procedure (Routine) - Authorized Specialty Diagnoses / Procedures Referred By Contac t Referred To Contact [facility] [place] Diagnoses PAD (peripheral artery disease) (HCC) Nonhealing ulcer of heel (HCC) Procedures US LEG ARTERIAL PERIPH UNL VAS LAB DUP-SCAN LXTR ART/ARTL BPGS UNI/LMTD STUDY No Reeder DO [address] [place] [address] [facility] [place] [address] Referral ID Status Reason Start Date Expiration Date Visits Requested Visits Authorized [id number] Authorized Auto-Generat ed Referral 11/17/2021 11/17/2022 1 1 * Outpatient Procedure (Routine) - Authorized Specialty Diagnoses / Procedures Referred By Contac t Referred To Contact [facility] Diagnoses Acute deep vein thrombosis (DVT) of proximal end of right lower extremity (HCC) Procedures US LEG VEIN DVT UNL VAS LAB DUP-SCAN XTR VEINS UNILATERAL/LIMITED STUDY No Reeder DO [address] [address] [facility] [address] [place] [address] Referral ID Status Reason Start Date Expiration Date Visits Requested Visits Authorized [id number] Authorized Auto-Generat ed Referral 11/17/2021 11/17/2022 1 1 * Consult, Test, Treat (Routine) - Authorized Specialty Diagnoses / Procedures Referred By Contkendra t Referred To Contact Cardiology Diagnoses PAD (peripheral artery disease) (HCC) Nonhealing ulcer of heel (HCC) Procedures CONSULT TO CARDIOLOGY OFFICE/OUTPATIENT [facility] 60-74 MINUTES Savanah Marcelo MD [address] [place] [address] Referral ID Status Reason Start Date Expiration Date Visits Requested Visits Authorized [id number] Authorized PCP Requested Referral 11/17/2021 11/17/2022 1 1 [facility] Summary Purpose Family History No Family History Records Found Relationship Condition Age at Onset Recorded Date/T kartik father Aneurysm Unknown father Parkinson's disease Unknown Advance Directives No Advanced Directives Records FoundDocuments on File Type Date Recorded 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 Advance Directive(s) Latest Code Status [...] Maker Relationship: M ajority of Adult Siblings (help desk representative) DNR-CCA 09/26/2021 11:56 AM 10/01/2021 2:18 [...] Decision Maker Relationship: Majority of Adult Siblings (help desk representative) Code Status History Code Status Date [...] Reason for Visit Chief Complaint Open Wound ([facility]) Reason for Visit At high [...] CREATED AUTHOR AUTHOR'S ORGANIZ ATION 07/25/2022 [facility] DATE CREATED AUTHOR AUTHOR'S ORGANIZ ATION 08/16/2022 [facility] DATE CREATED AUTHOR AUTHOR'S ORGANIZ ATION 01/14/2023 [facility] DATE CREATED AUTHOR AUTHOR'S ORGANIZ ATION 03/20/2023 [facility] dical [facility] DATE CREATED AUTHOR AUTHOR'S ORGANIZ ATION 05/25/2023 [facility] Source Comments (unrecognize d section and content) In the event this informatio n is protected by the Federal Confidentiality of Alcohol and Drug Abuse Patient Records regulations: The Federal rules restrict any use of the information to criminally investigate or prosecute any alcohol or drug abuse patient.TrihealthIn the event this information is protected by the Federal Confidentiality of Alcohol and Drug Abuse Patient Records regulations: The Federal rules restrict any use of the information to criminally investigate or prosecute any alcohol or drug abuse patient.TrihealthIn the event this information is protected by the Federal Confidentiality of Alcohol and Drug Abuse Patient Records regulations: The Federal rules restrict any use of the information to criminally investigate or prosecute any alcohol or drug abuse patient.TrihealthIn the event this information is protected by the Federal Confidentiality of Alcohol and Drug Abuse Patient Records regulations: The Federal rules restrict any use of the information to criminally investigate or prosecute any alcohol or drug abuse patient.TrihealthIn the event this information is protected by the Federal Confidentiality of Alcohol and Drug Abuse Patient Records regulations: The Federal rules restrict any use of the information to criminally investigate or prosecute any alcohol or drug abuse patient.TrihealthIn the event this information is protected by the Federal Confidentiality of Alcohol and Drug Abuse Patient Records regulations: The Federal rules restrict any use of the information to criminally investigate or prosecute any alcohol or drug abuse patient.TrihealthIn the event this information is protected by the Federal Confidentiality of Alcohol and Drug Abuse Patient Records regulations: The Federal rules restrict any use of the information to criminally investigate or prosecute any alcohol or drug abuse patient.TrihealthIn the event this information is protected by the Federal Confidentiality of Alcohol and Drug Abuse Patient Records regulations: The Federal rules restrict any use of the information to criminally investigate or prosecute any alcohol or drug abuse patient.TrihealthIn the event this information is protected by the Federal Confidentiality of Alcohol and Drug Abuse Patient Records regulations: The Federal rules restrict any use of the information to criminally investigate or prosecute any alcohol or drug abuse patient.[facility]healthIn the event this information is protected by the Federal Confidentiality of Alcohol and Drug Abuse Patient Records regulations: The Federal rules restrict any use of the information to criminally investigate or prosecute any alcohol or drug abuse patient.TrihealthIn the event this information is protected by the Federal Confidentiality of Alcohol and Drug Abuse Patient Records regulations: The Federal rules restrict any use of the information to criminally investigate or prosecute any alcohol or drug abuse patient.TrihealthIn the event this information is protected by the Federal Confidentiality of Alcohol and Drug Abuse Patient Records regulations: The Federal rules restrict any use of the information to criminally investigate or prosecute any alcohol or drug abuse patient.TrihealthIn the event this information is protected by the Federal Confidentiality of Alcohol and Drug Abuse Patient Records regulations: The Federal rules restrict any use of the information to criminally investigate or prosecute any alcohol or drug abuse patient.TrihealthIn the event this information is protected by the Federal Confidentiality of Alcohol and Drug Abuse Patient Records regulations: The Federal rules restrict any use of the information to criminally investigate or prosecute any alcohol or drug abuse patient.TrihealthIn the event this information is protected by the Federal Confidentiality of Alcohol and Drug Abuse Patient Records regulations: The Federal rules restrict any use of the information to criminally investigate or prosecute any alcohol or drug abuse patient.TrihealthIn the event this information is protected by the Federal Confidentiality of Alcohol and Drug Abuse Patient Records regulations: The Federal rules restrict any use of the information to criminally investigate or prosecute any alcohol or drug abuse patient.[facility]In the event this information is protected by the Federal Confidentiality of Alcohol and Drug Abuse Patient Records regulations: The Federal rules restrict any use of the information to criminally investigate or prosecute any alcohol or drug abuse patient.[facility]healthIn the event this information is protected by the Federal Confidentiality of Alcohol and Drug Abuse Patient Records regulations: The Federal rules restrict any use of the information to criminally investigate or prosecute any alcohol or drug abuse patient.[facility]healthIn the event this information is protected by the Federal Confidentiality of Alcohol and Drug Abuse Patient Records regulations: The Federal rules restrict any use of the information to criminally investigate or prosecute any alcohol or drug abuse patient.[facility]healthIn the event this information is protected by the Federal Confidentiality of Alcohol and Drug Abuse Patient Records regulations: The Federal rules restrict any use of the information to criminally investigate or prosecute any alcohol or drug abuse patient.[facility]In the event this information is protected by the Federal Confidentiality of Alcohol and Drug Abuse Patient Records regulations: The Federal rules restrict any use of the information to criminally investigate or prosecute any alcohol or drug abuse patient.[facility]healthIn the event this information is protected by the Federal Confidentiality of Alcohol and Drug Abuse Patient Records regulations: The Federal rules restrict any use of the information to criminally investigate or prosecute any alcohol or drug abuse patient.[facility]healthIn the event this information is protected by the Federal Confidentiality of Alcohol and Drug Abuse Patient Records regulations: The Federal rules restrict any use of the information to criminally investigate or prosecute any alcohol or drug abuse patient.[facility]healthIn the event this information is protected by the Federal Confidentiality of Alcohol and Drug Abuse Patient Records regulations: The Federal rules restrict any use of the information to criminally investigate or prosecute any alcohol or drug abuse patient.[facility]In the event this information is protected by the Federal Confidentiality of Alcohol and Drug Abuse Patient Records regulations: The Federal rules restrict any use of the information to criminally investigate or prosecute any alcohol or drug abuse patient.[facility]healthIn the event this information is protected by the Federal Confidentiality of Alcohol and Drug Abuse Patient Records regulations: The Federal rules restrict any use of the information to criminally investigate or prosecute any alcohol or drug abuse patient.[facility] Reason for Visit (unrecogniz ed section and [...] Care Teams (unrecognized sec tion and content) Brands Editor Relationship Specialty Start Date End Date LillieDevon, DO [address] [facility] [place] [address] PCP - General 05/27/00 Brands Editor Relationship Specialty Start Date End Date Devon Moreira, DO [address] [facility] [address] PCP - General 05/27/00 Brands Editor Relationship Specialty Start Date End Date Devon Moreira, DO [address] [facility] [place] [address] PCP - General 05/27/00 Brands Editor Relationship Specialty Start Date End Date Lillie Devon García, DO [address] [place] [address] PCP - General 05/27/00 Brands Editor Relationship Specialty Start Date End Date Devon Moreira, DO [address] [place] [address] PCP - General 05/27/00 Brands Editor Relationship Specialty Start Date End Date Devon Moreira, DO [address] [place] [address] PCP - General 05/27/00 Brands Editor Relationship Specialty Start Date End Date Devon Moreira, DO [address] [place] [address] PCP - General 05/27/00 Brands Editor Relationship Specialty Start Date End Date Devon Moreira, DO [address] [place] [address] PCP - General 05/27/00 Brands Editor Relationship Specialty Start Date End Date Devon Moreira, DO [address] [place] [address] PCP - General 05/27/00 Brands Editor Relationship Specialty Start Date End Date Devon Moreira, DO [address] [place] [address] PCP - General 05/27/00 Brands Editor Relationship Specialty Start Date End Date Devon Moreira, DO [address] [place] [address] PCP - General 05/27/00 Brands Editor Relationship Specialty Start Date End Date Devon Moreira, DO [address] [place] [address] PCP - General 05/27/00 Brands Editor Relationship Specialty Start Date End Date Devon Moreira, DO [address] [place] [address] PCP - General 05/27/00 Brands Editor Relationship Specialty Start Date End Date Devon Moreira, DO [address] [place] [address] PCP - General 05/27/00 Brands Editor Relationship Specialty Start Date End Date Devon Moreira, DO [address] [facility] [place] [address] PCP - General 05/27/00 Brands Editor Relationship Specialty Start Date End Date Devon Moreira, DO [address] [facility] [place] [address] PCP - General 05/27/00 Brands Editor Relationship Specialty Start Date End Date Devon Moreira, DO [address] [facility] [place] [address] PCP - General 05/27/00 Brands Editor Relationship Specialty Start Date End Date LillieDevon, DO [address] [facility] [place] [address] PCP - General 05/27/00 Brands Editor Relationship Specialty Start Date End Date Lillie Devon Raquel, DO [address] [facility] [place] [address] PCP - General 05/27/00 Team Status: Active Member Role Status Franklin Moreira DO Primary Care Provider Active Team Status: Inactive Member Role Status Franklin Moreira DO Primary Care Provider Active Sadia Aguilar APRN Attending Provider Active Brands Editor Relationship Specialty Start Date End Date Devon Moreira DO [address] [facility] [place] [address] PCP - General 05/27/00 Brands Editor Relationship Specialty Start Date End Date Devon Moreira DO [address] [facility] [place] [address] PCP - General 05/27/00 Brands Editor Relationship Specialty Start Date End Date Ni Cabrera, DO [address] [place] [address] PCP - ACO Reach 07/09/22 Devon Moreira MD [address] [place] [id number] PCP - General Internal Medicine 07/14/22 PRN Active and Recently Administ ered Medications (unrecognized section and content) Medication Order 01/10/2022 01/11/2022 01/12/2022 lidocaine (PF) 10 mg/mL (1 %) injection (XYLOCAINE) SUBCUTANEOUS, X (OR/PROCEDURE) PRN, Starting on Wed01/12/22 at 1032, Until Wed01/13/22 at 0303, Intraprocedure 1032 (Given - Provid er: Vani Hdz APRN.NAVAL AIRCREWMAN HELICOPTER) Goals (unrecognized section and content) Goals may [...] BE BASED ON THE PRIMARY CLINICAL RECORDS. [employer] provides no warranty or guarantee of the accuracy or completeness of information in this document.
[2023-05-26 09:06] LABS: Basophils Percent Auto 0.6 % (0.2-2.0); Eosinophils Absolute Auto 0.3 10^3/uL (0.0-0.7); Eosinophils Percent Auto 4.1 % (0.9-7.0); Hematocrit 29.7 % (42.0-54.0); Hemoglobin 9.2 g/dL (14.0-18.0); Immature Granulocytes Abs Auto 0.02 10^3/uL (0.00-0.03); Immature Granulocytes Pct Auto 0.3 % (0.0-0.5); Lymphocytes Absolute Auto 2.5 10^3/uL (1.2-3.8); Lymphocytes Percent Auto 38.2 % (20.5-60.0); Mean Corpuscular Hemoglobin 26.3 pg (25.9-34.0); Mean Corpuscular Volume 84.9 fL (80.0-94.0); Mean Platelet Volume 10.9 fL (9.5-13.5); Monocytes Absolute Auto 0.8 10^3/uL (0.3-0.8); Monocytes Percent Auto 11.8 % (1.7-12.0); Neutrophils Absolute Auto 2.9 10^3/uL (1.4-6.5); Platelet Count 218 10^3/uL (150-450); Red Cell Distribution Width 15.9 % (11.0-15.0); White Blood Count 6.5 10^3/uL (4.0-11.0)
[2023-05-26 09:15] LABS: INR 2.29; Prothrombin Time 23.2 sec (9.0-11.6)
[2023-05-26 09:46] LABS: Alanine Aminotransferase 15 U/L (16-63); Albumin Globulin Ratio 0.8; Albumin Level 2.6 g/dL (3.4-5.0); Alkaline Phosphatase 77 U/L (46-116); Anion Gap 13.8; Aspartate Amino Transferase 20 U/L (15-37); Bilirubin Total 0.6 mg/dL (0.2-1.0); Calcium 8.5 mg/dL (8.5-10.1); Carbon Dioxide 25.1 mmol/L (21.0-32.0); Chloride 105 mmol/L (98-107); Estimated GFR (African America 58 (>=60); Estimated GFR (Non-African Ame 48 (>=60); Globulin 3.3 g/dL; Glucose 147 mg/dL (74-106); Magnesium 1.9 mg/dL (1.8-2.4); Phosphorus 4.5 mg/dL (2.6-4.7); Potassium 3.9 mmol/L (3.5-5.1); Sodium 140 mmol/L (136-145); Total Protein 5.9 g/dL (6.4-8.2)
[2023-05-28 13:11] LABS: Tacrolimus (FK506), Blood 9.1 ng/mL (2.0-20.0)
== END 2023-05-26 01:11 | disposition home or self-care (01) ==
LOC: LAB 01:10
PROVIDERS: PCP Internal Medicine; Visit Provider Internal Medicine
DX: N18.9 Chronic kidney disease, unspecified (principal)
CPT/HCPCS: 36415; 80053; 80197; 83735; 84100; 85025; 85610

== ENCOUNTER 2023-06-02 03:17 | Outpatient (REF) | payer MEDICARE, OTHER, SELFPAY ==
--- OUTSIDE RECORDS SUMMARY | 2023-06-02 03:23 | XMS_ITS | CCD ---
Author Organization [facility] Care Team Providers Care Open Tenter Operator Name Role Phone PROVIDER, UNKNOWN Attending [...] Consulting Unavailable BACHRACH, KARTHIK Consulting Unavailable PHOENIX, SAHLEY Cortes Admitting Unavailable [place], ASHLEY Cortes Attending [...] DR CENTENO Consulting Unavailable MARIAELENA, DR RICH eHrnandez Consulting Unavailable KRISHNA, DR CURRY Carmona Consulting [...] [PYRIDOSTIGMINE BROMIDE] Drug Allergy 2 GI Upset [facility] Work Phone: (1 source) Pyridostigmine Drug Allergy [...] diabetes mellitus with nephropathy ([facility]) 3 units breakfast, 5 units lunch, 8 [...] 10 units and notify provider [facility] [place] [place] [phone] MG (6 sources) take 155-852 tablets by mouth twice daily [facility] [place] [place] [phone] MG 1 tablet Orally twice daily Active take 155-852 tablets by mouth four times daily take 155-852 tablets by mouth four times daily K [facility] [place] [place] [phone] MG 1 tablet Orally Four times [...] needed. docusate sodium 50 mg / sennosides, halfway 8.6 mg oral tablet (20 sources) Start: [...] by mouth daily with lunch. [employer] [place] with lunch 7110 mL 0 12/11/2021 Active Comment on above: Take 237 mL by mouth daily with lunch. 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] Episodic Other aftercare (10 sources) USP (current) use of insulin; Translations: [TEAM MEMBER CURRENT USE OF INSULIN] Onset: 2 Episodic Other aftercare (5 sources) 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; Translations: [TEAM MEMBER CURRNT USE ANTICOAGULANTS] Onset: 3 Episodic Other [...] 07-30-2006 Episodic Other aftercare (2 sources) Other nursing home (current) drug therapy; Translations: [OTH TEAM MEMBER CURRENT DRUG THERAPY] Onset: 02-05-2022 Episodic Other aftercare (4 sources) Encounter for orthopedic aftercare following surgical amputation; Translations: [ENC ORTHOPED AFTERCARE FLW SURG AMP] Onset: 02-05-2022 Episodic Other aftercare (4 sources) 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; Translations: [PRISON CURRENT USE ANTIBIOTICS] Onset: 12-20-2021 Episodic Other aftercare (1 source) USP (current) use of aspirin; Translations: [PRISON CURRENT [...] [facility] Facility Office Visiton 05-19-2023 Follow-up visit [id number] Alex Almonte 1945 M Date Provider Department Center 05/19/2023 CAITY PALACIOS CARD [facility] Family History Problem Relation Age of Onset Cancer Mother Aneurysm Father Cancer Father Parkinsonism Father Family Status - Relation Status Age at Mother Father Level of Service:40693 [place] OFFICE/OUTPATIENT ESTABLISHED LOW MDM 20 MIN Reason for Visit and Comments: Follow-up [110724] - 6 month follow up Normal [facility] HbA1c (Bld) [Mass fraction]o n 03-18-2023 Interpretation and review of laboratory results Normal [facility] POCT glycosylated hemoglobin (Hb A1C) docked deviceon 03-18-2023 HbA1c (Bld) [Mass fraction] 7.8 % [facility] CNPRosalie 12-25-2022 CNPN Telephone (TXCTGL) ALEX ALMONTE ([id number]) 1945 M Date Time Provider Department 12/25/22 KIDNEY TXP COORDINATORS TXCTGL During your visit today, we recorded the following information about you: Duane Ryan 12/25/2022 10:41 AM Signed Labs 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 [place] with lunch aspirin, enteric coated (ASPIRIN, ENTERIC [...] in am? thanks! RF Pts RN at [facility] reports pts sister picks up Rx from local [facility]. Will resend Rx to Dr. iPke to correct conflicting sig Allergies As of [...] (more content not included)... Normal [facility] Office Visiton 09-09-2022 Follow-up visit [id number] Alex Almonte 1945 M Date Provider Department Center 09/09/2022 1596-SARTHAK PARNELL CARD [facility] Family History Problem Relation Age of Onset Cancer Mother Aneurysm Father Cancer Father Parkinsonism Father Family Status - Relation Status Age at Mother Father Level of Service:22607 [place] OFFICE/OUTPATIENT ESTABLISHED MOD MDM 30-39 MIN Normal [facility] Glucose Poct Glucometerson 0 07-20-2022 Commemt1 Glu2: Cleaned Meter Normal [facility] Comment on above: Result Comment: PERF ORMED BY: [facility] [address] [place] [address] PATHOLOGIST GALLEY BOY JOSE F ELLIOTT M.D. Performed By: #### G LULS #### Point of Care testing , Glucose [Mass/Vol] 176 mg/dL Normal [facility] Comment on above: Result Comment: [facility] Glucose Reference Range is dependent on time and content of last meal. Glucose of more than 200 mg/dL in a nonstressed, ambulatory subject supports the diagnosis of Diabetes Mellitus. Performed By: #### G MADY #### Point of Care testing , FK506 (TACROLIMUS) WHOLE BLO ODon 07-12-2022 Tacrolimus (FK506), Blood 10.9 ng/mL Normal 2.0-20.0 [facility] Comment on above: Result Comment: Trou gh (immediately following transplant) 15.0 . Trough (steady state, 2 weeks or more after transplant): 3.0 - 8.0 . Performed by LC-MS/MS technology. Performed By: #### F K506T ####[facility] Uzllmgwgkg[address] [place], [place] [address]Dr. Farhat Leal CBC AUTO DIFFon 07-10-2022 BASO # 0.0 103/ul Normal 0.0-0.1 [facility] Comment on above: Performed By: #### C BC ####[facility] Oxnjkxrumq[address] [place], [place] [address]Dr. Farhat Leal Basophils/100 WBC (Bld) 0.5 % Normal 0.2-2.0 [facility] Comment on above: Performed By: #### C BC ####[facility] Nix[address] [place], [place] [address]Dr. Farhat Leal EO # 0.3 103/ul Normal 0.0-0.7 [facility] Comment on above: Performed By: #### C BC ####[facility] Rjrsyzlnxn[address] [place], [place] [address]Dr. Farhat Leal Eosinophils/100 WBC (Bld) 4.9 % Normal 0.9-7.0 [facility] Comment on above: Performed By: #### C BC ####[facility] Jwlcwjvwgf[address] [place], [place] [address]Dr. Farhat Leal Erythrocyte distribution width (RBC) [Ratio] 13.8 % Normal 11.0-15.0 [facility] Comment on above: Performed By: #### C BC ####[facility] [address] [place] [address]Dr. Farhat Leal Hematocrit (Bld) [Volume fraction] 36.6 % Critically low 42.0-54.0 [facility] Comment on above: Performed By: #### C BC ####[facility] G[address]rxwzjn[address] [place] [address]DrSkylar Farhat Leal Hemoglobin (Bld) [Mass/Vol] 12.2 g/dL Critically low 14.0-18.0 [facility] Comment on above: Performed By: #### C BC ####[facility] Dsaoumsrss[address] [place], [place] [address]DrSkylar Madelynlorri Leal IG # 0.01 10e3/ul Normal 0.00-0.03 [facility] Comment on above: Performed By: #### C BC ####[facility] Mefmeldlpf[address] [place], [place] [address]DrSkylar Leal IG % 0.2 % Normal 0.0-0.5 [facility] Comment on above: Performed By: #### C BC ####[facility] Quhjfrmpmj[address] [place], [place] [address]DrSkylar Farhat Elvis LYMPH # 2.2 103/ul Normal 1.2-3.8 [facility] Comment on above: Performed By: #### C BC ####[facility] Tjnukcwxby[address] [place], [place] [address]DrSkylar Madelynlorri Leal Lymphocytes/100 WBC (Bld) 33.9 % Normal 20.5-60.0 [facility] Comment on above: Performed By: #### C BC ####[facility] Swhuqyieta[address] [place], [place] [address]DrSkylar Madelynlorri Leal MANUAL DIFF REQ NO Normal [facility] Comment on above: Performed By: #### C BC ####[facility] Xajusqpgvd[address] [place], [place] [address]DrSkylar Leal MCH (RBC) [Entitic mass] 31.0 pg Normal 25.9-34.0 [facility] Comment on above: Performed By: #### C BC ####[facility] [address] [place] [address]Dr. Farhat Leal MCHC (RBC) [Mass/Vol] 33.3 g/dL Normal 29.9-35.2 [facility] Comment on above: Performed By: #### C BC ####[facility] [address]whosvge[address] [place] [address]DrSkylar Leal MCV (RBC) [Entitic vol] 93.1 fL Normal 80.0-94.0 [facility] Comment on above: Performed By: #### C BC ####[facility] Gdocdeyvkl[address] [place], [place] [address]DrSkylar Leal MONO # 0.7 103/ul Normal 0.3-0.8 [facility] Comment on above: Performed By: #### C BC ####[facility] Hfmngfuwsa[address] [place], [place] [address]Dr. Farhat Leal Monocytes/100 WBC (Bld) 10.8 % Normal 1.7-12.0 [facility] Comment on above: Performed By: #### C BC ####[facility] Arejwtzixj[address] [place], [place] [address]Dr. Farhat Leal NEUT # 3.2 103/ul Normal 1.4-6.5 [facility] Comment on above: Performed By: #### C BC ####[facility] Jqxjoflqpt[address] [place], [place] [address]DrSkylar Leal Neutrophils/100 WBC (Bld) 49.7 % Normal 43.0-75.0 [facility] Comment on above: Performed By: #### C BC ####[facility] Ndvzhixice[address] [place], [place] [address]DrSkylar Leal Platelet mean volume (Bld) [Entitic vol] 10.9 fL Normal 9.5-13.5 [facility] Comment on above: Performed By: #### C BC ####[facility] Sjsujoccif[address] [place], [place] [address]DrSkylar Leal PLT 195 103/ul Normal 150-450 [facility] Comment on above: Performed By: #### C BC ####[facility] [address] [place] [address]Dr. Farhat Leal RBC 3.93 106/ul Critically low 4.70-6.10 [facility] Comment on above: Performed By: #### C BC ####[facility] [address]ujff[address] [place] [address]Dr. Farhat Leal WBC 6.4 103/ul Normal 4.0-11.0 [facility] Comment on above: Performed By: #### C BC ####[facility] [address]yrvcp[address] [place] [address]Dr. Farhat Leal MAGNESIUMon 07-10-2022 Magnesium [Mass/Vol] 1.9 mg/dL Normal 1.8-2.4 [facility] Comment on above: Performed By: #### Demetrice Manzo PHOS ####[facility] Rfhlqaljmz[address] [place], [place] [address]Dr. Farhat Leal PHOSPHORUSon 07-10-2022 Phosphate [Mass/Vol] 4.7 mg/dL Normal 2.6-4.7 [facility] Comment on above: Performed By: #### HENRI Winters ####[facility] Gsnbsaariz[address] [place], [place] [address]Dr. Farhat Leal PROF 14(COMP METB)on 023 Albumin [Mass/Vol] 2.7 g/dL Critically low 3.4-5.0 [facility] Comment on above: Performed By: #### C MP ####[facility] [address]ig[address] [place] [address]Dr. Farhat Leal Albumin/Globulin [Mass ratio] 0.8 {ratio} Normal [facility] Comment on above: Performed By: #### C MP ####[facility] Dgtmkmjwkm[address] [place], [place] [address]Dr. Farhat Leal ALP [Catalytic activity/Vol] 59 U/L Normal 46-116 [facility] Comment on above: Performed By: #### C MP ####[facility] Akyjkwathk[address] [place], [place] [address]Dr. Farhat Leal ALT [Catalytic activity/Vol] 16 U/L Normal 16-63 [facility] Comment on above: Performed By: #### C MP ####[facility] [address]xybfg[address] [place] [address]Dr. Madelynlorri Elvis Anion gap [Moles/Vol] 12.3 mmol/L Normal [facility] Comment on above: Performed By: #### C MP ####[facility] O[address] [place] [address]Dr. Madelynlorri Leal AST [Catalytic activity/Vol] 17 U/L Normal 15-37 [facility] Comment on above: Performed By: #### C MP ####[facility] Wjziehpriq[address] [place], [place] [address]Dr. Farhat Leal Bilirubin [Mass/Vol] 0.5 mg/dL Normal 0.2-1.0 [facility] Comment on above: Performed By: #### C MP ####[facility] Szubttarpk[address] [place], [place] [address]Dr. Farhat Leal Calcium [Mass/Vol] 8.5 mg/dL Normal 8.5-10.1 [facility] Comment on above: Performed By: #### C MP ####[facility] Kvejinffxe[address] [place], [place] [address]Dr. Farhat Leal Chloride [Moles/Vol] 104 mmol/L Normal 98-107 [facility] Comment on above: Performed By: #### C MP ####[facility] Wtetnxpkgn8[address] [place], [place] [address]Dr. Farhat Leal CO2 [Moles/Vol] 27.6 mmol/L Normal 21.0-32.0 [facility] Comment on above: Performed By: #### C MP ####[facility] Ttkwytuxqw[address] [place], [place] [address]Dr. Farhat Leal Creatinine [Mass/Vol] 1.79 mg/dL Critically high 0.70-1.30 [facility] Comment on above: Performed By: #### C MP ####[facility] [address]awf[address]yvka[address] [place], [place] [address]Dr. Farhat Leal EGFR-AF QATARI 45 mL/min/1.73m2 Critically low >=60 [facility] Comment on above: Performed By: #### C MP ####[facility] [address] [place] [address]Dr. Farhat Elvis EGFR-NON AF QATARI 37 mL/min/1.73m2 Critically low >=60 [facility] Comment on above: Performed By: #### C MP ####[facility] [address]rbx[address] [place] [address]Dr. Farhat Elvis Globulin (S) [Mass/Vol] 3.2 g/dL Normal [facility] Comment on above: Performed By: #### C MP ####[facility] Giqrutdfos[address] [place], [place] [address]Dr. Madelynlorri Elvis Glucose [Mass/Vol] 203 mg/dL Critically high 74-106 [facility] Comment on above: Performed By: #### C MP ####[facility] Dbqntutoks[address] [place] [address]Dr. aFrhat Leal Potassium [Moles/Vol] 3.9 mmol/L Normal 3.5-5.1 [facility] Comment on above: Performed By: #### C MP ####[facility] Nkuetgoicy[address] [place], [place] [address]Dr. Madelynlorri Elvis Protein [Mass/Vol] 5.9 g/dL Critically low 6.4-8.2 [facility] Comment on above: Performed By: #### C MP ####[facility] [address]rx[address]wluy[address] [place] [address]Dr. Madelynlorri Leal Sodium [Moles/Vol] 140 mmol/L Normal 136-145 [facility] Comment on above: Performed By: #### C MP ####[facility] V[address]jfa[address]fh[address] [place] [address]Dr. Farhat Leal Urea nitrogen [Mass/Vol] 61.0 mg/dL Critically high 7.0-18.0 [facility] Comment on above: Performed By: #### C MP ####[facility] K[address]jwzfegq[address] [place], [place] [address]DrSkylar Leal Urea nitrogen/Creatinine [Mass ratio] 34.1 mg/mg Normal [facility] Comment on above: Performed By: #### C MP ####[facility] M[address]dcx[address] [place], [place] [address]DrSkylar Leal PROTIMEon 07-10-2022 INR Coag (PPP) [Relative time] 2.95 {INR} Normal [facility] Comment on above: Performed By: #### P T ####[facility] Xcuscm[address]xb[address] [place], [place] [address]DrSkylar Leal INR GUIDELINES SEE BELOW Normal [facility] Comment on above: Result Comment: MALINA RED INR: 2.0 - 3.0 CONDITIONS NOT LISTED BELOW 2.5 - 3.5 FOR PROSTHETIC HEART VALVE REPLACEMENT 2.5 - 3.5 RECURRENT THROMBOSIS Performed By: #### P T ####[facility] Brtixlewkd[address] [place], [place] [address]DrSkylar Leal PT Coag (PPP) [Time] 29.4 s Critically high 9.0-11.6 [facility] Comment on above: Performed By: #### P T ####[facility] Zqtmwjqkel[address] [place], [place] [address]DrSkylar Leal FK506 (TACROLIMUS) WHOLE BLO ODon 07-07-2022 Tacrolimus (FK506), Blood 8.3 ng/mL Normal 2.0-20.0 [facility] Comment on above: Result Comment: Trou gh (immediately following transplant) 15.0 . Trough (steady state, 2 weeks or more after transplant): 3.0 - 8.0 . Performed by LC-MS/MS technology. Performed By: #### F K506T ####[facility] Pgvteecckk[address] [place], [place] [address]DrSkylar Leal CBC AUTO DIFFon 07-03-2022 BASO # 0.0 103/ul Normal 0.0-0.1 [facility] Comment on above: Performed By: #### C BC ####[facility] Dwsqafmohm[address] [place], [place] [address]DrSkylar Leal Basophils/100 WBC (Bld) 0.6 % Normal 0.2-2.0 [facility] Comment on above: Performed By: #### C BC ####[facility] Sp[address]ige[address] [place] [address]Dr. Farhat Leal EO # 0.3 103/ul Normal 0.0-0.7 [facility] Comment on above: Performed By: #### C BC ####[facility] M[address]zwrxn27[address] [place] [address]Dr. Farhat Leal Eosinophils/100 WBC (Bld) 4.1 % Normal 0.9-7.0 [facility] Comment on above: Performed By: #### C BC ####[facility] Suehbauurr[address] [place], [place] [address]Dr. Farhat Leal Erythrocyte distribution width (RBC) [Ratio] 14.0 % Normal 11.0-15.0 [facility] Comment on above: Performed By: #### C BC ####[facility] Fcyboaxkfs[address] [place], [place] [address]Dr. Farhat Leal Hematocrit (Bld) [Volume fraction] 35.9 % Critically low 42.0-54.0 [facility] Comment on above: Performed By: #### C BC ####[facility] V[address]scwuit[address] [place], [place] [address]Dr. Farhat Leal Hemoglobin (Bld) [Mass/Vol] 12.0 g/dL Critically low 14.0-18.0 [facility] Comment on above: Performed By: #### C BC ####[facility] Bfqlrfuajh[address] [place], [place] [address]DrSkylar Farhat Leal IG # 0.04 10e3/ul Critically high 0.00-0.03 [facility] Comment on above: Performed By: #### C BC ####[facility] Rnebcltdxy[address] [place], [place] [address]Dr. Madelynlorri Leal IG % 0.6 % Critically high 0.0-0.5 [facility] Comment on above: Performed By: #### C BC ####[facility] [address]hep[address] [place], [place] [address]DrSkylar Leal LYMPH # 1.5 103/ul Normal 1.2-3.8 [facility] Comment on above: Performed By: #### C BC ####[facility] [address] [place] [address]Dr. Farhat Leal Lymphocytes/100 WBC (Bld) 21.5 % Normal 20.5-60.0 [facility] Comment on above: Performed By: #### C BC ####[facility] [address]ncvr[address] [place] [address]Dr. Farhat Leal MANUAL DIFF REQ NO Normal [facility] Comment on above: Performed By: #### C BC ####[facility] [address]xj[address] [place] [address]Dr. Farhat Leal MCH (RBC) [Entitic mass] 30.8 pg Normal 25.9-34.0 [facility] Comment on above: Performed By: #### C BC ####[facility] [address]jeelb[address] [place], [place] [address]Dr. Farhat Leal MCHC (RBC) [Mass/Vol] 33.4 g/dL Normal 29.9-35.2 [facility] Comment on above: Performed By: #### C BC ####[facility] [address]zydj[address] [place], [place] [address]Dr. Farhat Leal MCV (RBC) [Entitic vol] 92.1 fL Normal 80.0-94.0 [facility] Comment on above: Performed By: #### C BC ####[facility] T[address]iafc[address] [place] [address]Dr. Farhat Leal MONO # 0.6 103/ul Normal 0.3-0.8 [facility] Comment on above: Performed By: #### C BC ####[facility] [address]fe[address]wmzyri[address] [place], [place] [address]Dr. Farhat Leal Monocytes/100 WBC (Bld) 8.7 % Normal 1.7-12.0 [facility] Comment on above: Performed By: #### C BC ####[facility] L[address]ew[address] [place], [place] [address]Dr. Farhat Leal NEUT # 4.4 103/ul Normal 1.4-6.5 [facility] Comment on above: Performed By: #### C BC ####[facility] [address] [place] [address]Dr. Farhat Elvis Neutrophils/100 WBC (Bld) 64.5 % Normal 43.0-75.0 [facility] Comment on above: Performed By: #### C BC ####[facility] [address]ken[address] [place] [address]Dr. Madelynlorri Elvis Platelet mean volume (Bld) [Entitic vol] 10.1 fL Normal 9.5-13.5 [facility] Comment on above: Performed By: #### C BC ####[facility] [address]weasv[address] [place] [address]Dr. Farhat Leal PLT 177 103/ul Normal 150-450 [facility] Comment on above: Performed By: #### C BC ####[facility] [address]mcjfq[address] [place] [address]Dr. Farhat Leal RBC 3.90 106/ul Critically low 4.70-6.10 [facility] Comment on above: Performed By: #### C BC ####[facility] [address]th[address] [place] [address]Dr. Farhat Leal WBC 6.8 103/ul Normal 4.0-11.0 [facility] Comment on above: Performed By: #### C BC ####[facility] [address]ccy[address] [place] [address]DrSkylar Leal PROF 14(COMP METB)on 023 Albumin [Mass/Vol] 2.8 g/dL Critically low 3.4-5.0 [facility] Comment on above: Performed By: #### C MP ####[facility] [address]keey[address] [place] [address]DrSkylar Leal Albumin/Globulin [Mass ratio] 0.8 {ratio} Normal [facility] Comment on above: Performed By: #### C MP ####[facility] [address]qk[address] [place] [address]Dr. Farhat Leal ALP [Catalytic activity/Vol] 68 U/L Normal 46-116 [facility] Comment on above: Performed By: #### C MP ####[facility] [address] [place] [address]Dr. Farhat Leal ALT [Catalytic activity/Vol] 20 U/L Normal 16-63 [facility] Comment on above: Performed By: #### C MP ####[facility] [address]bfudzml[address] [place] [address]Dr. Farhat Leal Anion gap [Moles/Vol] 11.1 mmol/L Normal Th [facility] Comment on above: Performed By: #### C MP ####[facility] [address]xzxhr[address] [place] [address]Dr. Farhat Leal AST [Catalytic activity/Vol] 22 U/L Normal 15-37 [facility] Comment on above: Performed By: #### C MP ####[facility] Y[address]ojwl[address] [place] [address]Dr. Farhat Elvis Bilirubin [Mass/Vol] 0.4 mg/dL Normal 0.2-1.0 [facility] Comment on above: Performed By: #### C MP ####[facility] Tu[address]ijcmax[address] [place] [address]Dr. Farhat Elvis Calcium [Mass/Vol] 8.5 mg/dL Normal 8.5-10.1 [facility] Comment on above: Performed By: #### C MP ####[facility] Venbqlzdgj[address] [place] [address]Dr. Farhat Elvis Chloride [Moles/Vol] 106 mmol/L Normal 98-107 [facility] Comment on above: Performed By: #### C MP ####[facility] Xzndkogkgi[address] [place] [id number]. Farhat Elvis CO2 [Moles/Vol] 29.1 mmol/L Normal 21.0-32.0 [facility] Comment on above: Performed By: #### C MP ####[facility] Wprmparbpu224[address] [place] [address]Dr. Farhat Elvis Creatinine [Mass/Vol] 1.70 mg/dL Critically high 0.70-1.30 [facility] Comment on above: Performed By: #### C MP ####[facility] Zkvjxlxvtn2602 [place] [address]Dr. Farhat Leal EGFR-AF QATARI 48 mL/min/1.73m2 Critically low >=60 [facility] Comment on above: Performed By: #### C MP ####[facility] Wkkzpdmfqn59[address] [place] [address]Dr. Farhat Leal EGFR-NON AF QATARI 39 mL/min/1.73m2 Critically low >=60 [facility] Comment on above: Performed By: #### C MP ####[facility] Znsrgxpmze67[address] [place] [address]Dr. Farhat Elvis Globulin (S) [Mass/Vol] 3.6 g/dL Normal [facility] Comment on above: Performed By: #### C MP ####[facility] Flfeqdecft7[address] [place] [address]Dr. Farhat Elvis Glucose [Mass/Vol] 312 mg/dL Critically high 74-106 [facility] Comment on above: Performed By: #### C MP ####[facility] Gxqsygyrjg4[address] [place] [address]Dr. Farhat Elvis Potassium [Moles/Vol] 4.2 mmol/L Normal 3.5-5.1 [facility] Comment on above: Performed By: #### C MP ####[facility] Ggbsntxpap6[address] [place] [address]Dr. Farhat Elvis Protein [Mass/Vol] 6.4 g/dL Normal 6.4-8.2 [facility] Comment on above: Performed By: #### C MP ####[facility] Nfqjryefco65[address] [place] [address]Dr. Farhat Leal Sodium [Moles/Vol] 142 mmol/L Normal 136-145 [facility] Comment on above: Performed By: #### C MP ####[facility] Ocylwpysbk3178 [place] [address]Dr. Farhat Elvis Urea nitrogen [Mass/Vol] 49.0 mg/dL Critically high 7.0-18.0 [facility] Comment on above: Performed By: #### C MP ####[facility] Juwqlokkme[address] [place], [place] [address]Dr. Farhat Leal Urea nitrogen/Creatinine [Mass ratio] 28.8 mg/mg Normal [facility] Comment on above: Performed By: #### C MP ####[facility] Wgctwwunig[address] [place], [place] [address]Dr. Farhat Leal PROTIMEon 07-03-2022 INR Coag (PPP) [Relative time] 2.23 {INR} Normal [facility] Comment on above: Performed By: #### P T ####[facility] Vnjiicfmhm[address] [place], [place] [address]Dr. Farhat Leal INR GUIDELINES SEE BELOW Normal [facility] Comment on above: Result Comment: MALINA RED INR: 2.0 - 3.0 CONDITIONS NOT LISTED BELOW 2.5 - 3.5 FOR PROSTHETIC HEART VALVE REPLACEMENT 2.5 - 3.5 RECURRENT THROMBOSIS Performed By: #### P T ####[facility] Dzrsyqggan[address] [place], [place] [address]Dr. Farhat Leal PT Coag (PPP) [Time] 22.6 s Critically high 9.0-11.6 [facility] Comment on above: Performed By: #### P T ####[facility] Pcrzxwgioz675[address] [place], [place] [address]Dr. Farhat Leal FK506 (TACROLIMUS) WHOLE BLO ODon 06-29-2022 Tacrolimus (FK506), Blood 12.2 ng/mL Normal 2.0-20.0 [facility] Comment on above: Result Comment: Trou gh (immediately following transplant) 15.0 . Trough (steady state, 2 weeks or more after transplant): 3.0 - 8.0 . Performed by LC-MS/MS technology. Performed By: #### F K506T ####[facility] Fltwxvfykq525[address] [place], [place] [address]Dr. Farhat Leal CBC AUTO DIFFon 06-26-2022 BASO # 0.0 103/ul Normal 0.0-0.1 [facility] Comment on above: Performed By: #### C BC ####[facility] Qycxeogikf5[address] [place] [address]Dr. Farhat Leal Basophils/100 WBC (Bld) 0.5 % Normal 0.2-2.0 [facility] Comment on above: Performed By: #### C BC ####[facility] Sunkdattsx[address] [place], [place] [address]Dr. Farhat Leal EO # 0.3 103/ul Normal 0.0-0.7 [facility] Comment on above: Performed By: #### C BC ####[facility] Lchgczudgt[address] [place], [place] [address]Dr. Farhat Leal Eosinophils/100 WBC (Bld) 4.3 % Normal 0.9-7.0 [facility] Comment on above: Performed By: #### C BC ####[facility] Kmhmaunxaz249[address] [place], [place] [address]Dr. Farhat Leal Erythrocyte distribution width (RBC) [Ratio] 14.1 % Normal 11.0-15.0 [facility] Comment on above: Performed By: #### C BC ####[facility] Pbjhvmnqey79[address] [place], [place] [address]Dr. Farhat Leal Hematocrit (Bld) [Volume fraction] 35.4 % Critically low 42.0-54.0 [facility] Comment on above: Performed By: #### C BC ####[facility] Scocdijiuk[address] [place], [place] [address]Dr. Farhat Leal Hemoglobin (Bld) [Mass/Vol] 11.8 g/dL Critically low 14.0-18.0 [facility] Comment on above: Performed By: #### C BC ####[facility] Vupdynedsu18[address] [place], [place] [address]Dr. Farhat Leal IG # 0.02 10e3/ul Normal 0.00-0.03 [facility] Comment on above: Performed By: #### C BC ####[facility] Tvzxttrbvb[address] [place], [place] [address]Dr. Farhat Leal IG % 0.3 % Normal 0.0-0.5 [facility] Comment on above: Performed By: #### C BC ####[facility] Kilorfdrmx1392 [place] [address]Dr. Farhat Leal LYMPH # 2.4 103/ul Normal 1.2-3.8 [facility] Comment on above: Performed By: #### C BC ####[facility] Gtwnsjiliz[address] [place] [address]Dr. Farhat Elvis Lymphocytes/100 WBC (Bld) 40.4 % Normal 20.5-60.0 [facility] Comment on above: Performed By: #### C BC ####[facility] Qfofksfcvu9027 [place] [address]Dr. Madelynlorri Leal MANUAL DIFF REQ NO Normal [facility] Comment on above: Performed By: #### C BC ####[facility] Ahwtennrqp1905 [place] [address]Dr. Farhat Elvis MCH (RBC) [Entitic mass] 31.0 pg Normal 25.9-34.0 [facility] Comment on above: Performed By: #### C BC ####[facility] Mrmaxzgabj5186 [place] [address]Dr. Farhat Leal MCHC (RBC) [Mass/Vol] 33.3 g/dL Normal 29.9-35.2 [facility] Comment on above: Performed By: #### C BC ####[facility] Acbyrghspc1363 [place] [address]Dr. Farhat Leal MCV (RBC) [Entitic vol] 92.9 fL Normal 80.0-94.0 [facility] Comment on above: Performed By: #### C BC ####[facility] Ovwvkdraco6232 [place] [address]Dr. Farhat Elvis MONO # 0.7 103/ul Normal 0.3-0.8 [facility] Comment on above: Performed By: #### C BC ####[facility] Jhrumsrrad6825 [place] [address]Dr. Madelynlorri Leal Monocytes/100 WBC (Bld) 11.1 % Normal 1.7-12.0 [facility] Comment on above: Performed By: #### C BC ####[facility] Smmivbhryq3868 [place] [address]Dr. Farhat Leal NEUT # 2.6 103/ul Normal 1.4-6.5 [facility] Comment on above: Performed By: #### C BC ####[facility] Qlachqvomw4826 [place] [address]Dr. Farhat Leal Neutrophils/100 WBC (Bld) 43.4 % Normal 43.0-75.0 [facility] Comment on above: Performed By: #### C BC ####[facility] Eggayjtijf4191 [place] [address]Dr. Farhat Leal Platelet mean volume (Bld) [Entitic vol] 10.4 fL Normal 9.5-13.5 [facility] Comment on above: Performed By: #### C BC ####[facility] Z[address]cgjglxp74[address] [place], [place] [address]Dr. Madelynlorri Elvis PLT 211 103/ul Normal 150-450 [facility] Comment on above: Performed By: #### C BC ####[facility] Vqjmwybkgl09[address] [place], [place] [address]Dr. Frahat Leal RBC 3.81 106/ul Critically low 4.70-6.10 [facility] Comment on above: Performed By: #### C BC ####[facility] Jgbwvzdakb96[address] [place], [place] [address]Dr. Farhat Leal WBC 6.0 103/ul Normal 4.0-11.0 [facility] Comment on above: Performed By: #### C BC ####[facility] Nqhrgwuanh[address] [place], [place] [address]Dr. Farhat Leal PROF 14(COMP METB)on 023 Albumin [Mass/Vol] 2.6 g/dL Critically low 3.4-5.0 [facility] Comment on above: Performed By: #### C MP ####[facility] Zxomppjqtx[address] [place], [place] [address]Dr. Farhat Leal Albumin/Globulin [Mass ratio] 0.8 {ratio} Normal [facility] Comment on above: Performed By: #### C MP ####[facility] Gbryibzozz5183 [place] [address]Dr. Farhat Leal ALP [Catalytic activity/Vol] 64 U/L Normal 46-116 [facility] Comment on above: Performed By: #### C MP ####[facility] Afkdeyvptt9962 [place] [address]Dr. Farhat Leal ALT [Catalytic activity/Vol] 18 U/L Normal 16-63 [facility] Comment on above: Performed By: #### C MP ####[facility] Rovmigjuxx2267 [place] [address]Dr. Farhat Leal Anion gap [Moles/Vol] 10.2 mmol/L Normal [facility] Comment on above: Performed By: #### C MP ####[facility] Tmjpjewxmg[address] [place], [place] [address]Dr. Farhat Leal AST [Catalytic activity/Vol] 16 U/L Normal 15-37 [facility] Comment on above: Performed By: #### C MP ####[facility] Emdekyljoy[address] [place], [place] [address]Dr. Farhat Leal Bilirubin [Mass/Vol] 0.6 mg/dL Normal 0.2-1.0 [facility] Comment on above: Performed By: #### C MP ####[facility] Vexzreucas[address] [place], [place] [address]Dr. Farhat Leal Calcium [Mass/Vol] 8.5 mg/dL Normal 8.5-10.1 [facility] Comment on above: Performed By: #### C MP ####[facility] Qltlmqilox1074 [place] [address]Dr. Farhat Leal Chloride [Moles/Vol] 106 mmol/L Normal 98-107 [facility] Comment on above: Performed By: #### C MP ####[facility] Qnpckmohzv[address] [place], [place] [address]Dr. Farhat Leal CO2 [Moles/Vol] 29.8 mmol/L Normal 21.0-32.0 [facility] Comment on above: Performed By: #### C MP ####[facility] Lytpwpeeho2680 [place] [address]Dr. Farhat Leal Creatinine [Mass/Vol] 1.60 mg/dL Critically high 0.70-1.30 [facility] Comment on above: Performed By: #### C MP ####[facility] Smbiydxmkw7022 [place] [address]Dr. Farhat Leal EGFR-AF QATARI 51 mL/min/1.73m2 Critically low >=60 [facility] Comment on above: Performed By: #### C MP ####[facility] Lpqetbndko4560 [place] [address]Dr. Farhat Leal EGFR-NON AF QATARI 42 mL/min/1.73m2 Critically low >=60 [facility] Comment on above: Performed By: #### C MP ####[facility] Jpejqciado9450 [place] [address]Dr. Farhat Leal Globulin (S) [Mass/Vol] 3.4 g/dL Normal [facility] Comment on above: Performed By: #### C MP ####[facility] Zirpewbfsp9060 [place] [address]Dr. Farhat Leal Glucose [Mass/Vol] 178 mg/dL Critically high 74-106 [facility] Comment on above: Performed By: #### C MP ####[facility] Orplxwshjs9877 [place] [address]Dr. Farhat Leal Potassium [Moles/Vol] 4.0 mmol/L Normal 3.5-5.1 [facility] Comment on above: Performed By: #### C MP ####[facility] Yfcsqryglh9508 [place] [address]Dr. Farhat Leal Protein [Mass/Vol] 6.0 g/dL Critically low 6.4-8.2 [facility] Comment on above: Performed By: #### C MP ####[facility] Axaxqrqide9516 [place] [address]Dr. Farhat Leal Sodium [Moles/Vol] 142 mmol/L Normal 136-145 [facility] Comment on above: Performed By: #### C MP ####[facility] Gjkqnjipaa4489 [place] [address]Dr. Farhat Leal Urea nitrogen [Mass/Vol] 49.0 mg/dL Critically high 7.0-18.0 [facility] Comment on above: Performed By: #### C MP ####[facility] Cpvukuwtzg0871 [place] [address]Dr. Farhat Leal Urea nitrogen/Creatinine [Mass ratio] 30.6 mg/mg Normal [facility] Comment on above: Performed By: #### C MP ####[facility] Zombjzoofl3525 [place] [address]Dr. Farhat Leal PROTIMEon 06-26-2022 INR Coag (PPP) [Relative time] 1.77 {INR} Normal [facility] Comment on above: Performed By: #### P T ####[facility] Mieuebijhu[address] [place], [place] [address]Dr. Farhat Leal INR GUIDELINES SEE BELOW Normal [facility] Comment on above: Result Comment: MALINA RED INR: 2.0 - 3.0 CONDITIONS NOT LISTED BELOW 2.5 - 3.5 FOR PROSTHETIC HEART VALVE REPLACEMENT 2.5 - 3.5 RECURRENT THROMBOSIS Performed By: #### P T ####[facility] Vifmasrfsz35[address] [place], [place] [address]Dr. Farhat Leal PT Coag (PPP) [Time] 18.2 s Critically high 9.0-11.6 [facility] Comment on above: Performed By: #### P T ####[facility] Quedetjxif84[address] [place], [place] [address]Dr. Farhat Leal FK506 (TACROLIMUS) WHOLE BLO ODon 06-22-2022 Tacrolimus (FK506), Blood 24.5 ng/mL Invalid Interpretation Code 2.0-20.0 [facility] Comment on above: Result Comment: Trou gh (immediately following transplant) 15.0 . Trough (steady state, 2 weeks or more after transplant): 3.0 - 8.0 . Performed by LC-MS/MS technology.Patient drug level exceeds published reference range. Evaluateclinically for signs of potential toxicity. Performed By: #### F K506T ####[facility] Exjxebbpmm1255 [place] [address]Dr. Farhat Leal CBC AUTO DIFFon 06-19-2022 BASO # 0.1 103/ul Normal 0.0-0.1 [facility] Comment on above: Performed By: #### C BC ####[facility] Ihkjzilmoh[address] [place], [place] [address]Dr. Madelynlorri Leal Basophils/100 WBC (Bld) 0.7 % Normal 0.2-2.0 [facility] Comment on above: Performed By: #### C BC ####[facility] Cxhmjtlesw[address] [place], [place] [address]Dr. Madelynlorri Leal EO # 0.4 103/ul Normal 0.0-0.7 [facility] Comment on above: Performed By: #### C BC ####[facility] Unrhiiebxr396[address] [place], [place] [address]Dr. Madelynlorri Leal Eosinophils/100 WBC (Bld) 5.7 % Normal 0.9-7.0 [facility] Comment on above: Performed By: #### C BC ####[facility] Byrwofficx[address] [place], [place] [address]Dr. Madelynlorri Leal Erythrocyte distribution width (RBC) [Ratio] 14.5 % Normal 11.0-15.0 [facility] Comment on above: Performed By: #### C BC ####[facility] Dwoemmebub336[address] [place], [place] [address]Dr. Farhat Leal Hematocrit (Bld) [Volume fraction] 34.1 % Critically low 42.0-54.0 [facility] Comment on above: Performed By: #### C BC ####[facility] Vtlfrjptrv[address] [place], [place] [address]Dr. Madelynlorri Leal Hemoglobin (Bld) [Mass/Vol] 11.3 g/dL Critically low 14.0-18.0 [facility] Comment on above: Performed By: #### C BC ####[facility] Hkpoxdcdwr[address] [place], [place] [address]Dr. Farhat Leal IG # 0.02 10e3/ul Normal 0.00-0.03 [facility] Comment on above: Performed By: #### C BC ####[facility] Mrsumubsdc4352 [place] [address]Dr. Madelynlorri Leal IG % 0.3 % Normal 0.0-0.5 [facility] Comment on above: Performed By: #### C BC ####[facility] Vpgjilyosm7764 [place] [address]Dr. Farhat Elvis LYMPH # 3.1 103/ul Normal 1.2-3.8 [facility] Comment on above: Performed By: #### C BC ####[facility] Rexokmxwzn9200 [place] [address]Dr. Madelynlorri Leal Lymphocytes/100 WBC (Bld) 40.6 % Normal 20.5-60.0 [facility] Comment on above: Performed By: #### C BC ####[facility] Sgiguobhht07[address] [place] [address]Dr. Farhat Leal MANUAL DIFF REQ NO Normal [facility] Comment on above: Performed By: #### C BC ####[facility] Qnucaklalm1529 [place] [address]Dr. Farhat Elvis MCH (RBC) [Entitic mass] 30.6 pg Normal 25.9-34.0 [facility] Comment on above: Performed By: #### C BC ####[facility] Jtymanjkxz4198 [place] [address]Dr. Farhat Elvis MCHC (RBC) [Mass/Vol] 33.1 g/dL Normal 29.9-35.2 [facility] Comment on above: Performed By: #### C BC ####[facility] Npnvubnzvn9914 [place] [address]Dr. Farhat Leal MCV (RBC) [Entitic vol] 92.4 fL Normal 80.0-94.0 [facility] Comment on above: Performed By: #### C BC ####[facility] Jmsoxjjicp[address] [place], [place] [address]Dr. Farhat Leal MONO # 0.8 103/ul Normal 0.3-0.8 [facility] Comment on above: Performed By: #### C BC ####[facility] Sbbavuntcv0082 [place] [address]Dr. Farhat Leal Monocytes/100 WBC (Bld) 10.6 % Normal 1.7-12.0 [facility] Comment on above: Performed By: #### C BC ####[facility] Cytkoxbfur7850 [place] [address]Dr. Farhat Leal NEUT # 3.2 103/ul Normal 1.4-6.5 [facility] Comment on above: Performed By: #### C BC ####[facility] Zekzclplqg0777 [place] [address]Dr. Madelynlorri Leal Neutrophils/100 WBC (Bld) 42.1 % Critically low 43.0-75.0 [facility] Comment on above: Performed By: #### C BC ####[facility] Ameaswzpoe1462 [place] [address]Dr. Madelynlorri Elvis Platelet mean volume (Bld) [Entitic vol] 10.6 fL Normal 9.5-13.5 [facility] Comment on above: Performed By: #### C BC ####[facility] Nzdjbptamo4394 [place] [address]Dr. Farhat Elvis PLT 187 103/ul Normal 150-450 [facility] Comment on above: Performed By: #### C BC ####[facility] Kclurdbtic9819 [place] [address]Dr. Madelynlorri Leal RBC 3.69 106/ul Critically low 4.70-6.10 [facility] Comment on above: Performed By: #### C BC ####[facility] Wxbtmwinmm3097 [place] [address]Dr. Farhat Leal WBC 7.7 103/ul Normal 4.0-11.0 [facility] Comment on above: Performed By: #### C BC ####[facility] Zbdomjnliv8535 [place] [address]Dr. Farhat Leal PROF 14(COMP METB)on 023 Albumin [Mass/Vol] 2.5 g/dL Critically low 3.4-5.0 [facility] Comment on above: Performed By: #### C MP ####[facility] Lelghoztjj4051 [place] [address]Dr. Madelynlorri Elvis Albumin/Globulin [Mass ratio] 0.8 {ratio} Normal [facility] Comment on above: Performed By: #### C MP ####[facility] Cmilkifmjg7451 [place] [address]Dr. Farhat Leal ALP [Catalytic activity/Vol] 60 U/L Normal 46-116 [facility] Comment on above: Performed By: #### C MP ####[facility] Yltrkfbput2308 [place] [address]Dr. Farhat Leal ALT [Catalytic activity/Vol] 16 U/L Normal 16-63 [facility] Comment on above: Performed By: #### C MP ####[facility] Ecozsijdqh[address] [place], [place] [address]Dr. Farhat Leal Anion gap [Moles/Vol] 9.1 mmol/L Normal [facility] Comment on above: Performed By: #### C MP ####[facility] Dxbrmtsetz85[address] [place], [place] [address]Dr. Farhat Leal AST [Catalytic activity/Vol] 31 U/L Normal 15-37 [facility] Comment on above: Performed By: #### C MP ####[facility] Ziougekagx[address] [place], [place] [address]Dr. Farhat Leal Bilirubin [Mass/Vol] 0.3 mg/dL Normal 0.2-1.0 [facility] Comment on above: Performed By: #### C MP ####[facility] Kzlzcgwflk[address] [place], [place] [address]Dr. Farhat Leal Calcium [Mass/Vol] 8.2 mg/dL Critically low 8.5-10.1 [facility] Comment on above: Performed By: #### C MP ####[facility] Yfeucmxpzq916[address] [place], [place] [address]Dr. Farhat Lela Chloride [Moles/Vol] 106 mmol/L Normal 98-107 [facility] Comment on above: Performed By: #### C MP ####[facility] Mewzvqokzw0288 [place] [address]Dr. Farhat Leal CO2 [Moles/Vol] 27.0 mmol/L Normal 21.0-32.0 [facility] Comment on above: Performed By: #### C MP ####[facility] Holbqnmbhv9790 [place] [address]Dr. Farhat Leal Creatinine [Mass/Vol] 1.51 mg/dL Critically high 0.70-1.30 [facility] Comment on above: Performed By: #### C MP ####[facility] Jrlruiuenm3327 [place] [address]Dr. Farhat Leal EGFR-AF QATARI 55 mL/min/1.73m2 Critically low >=60 [facility] Comment on above: Performed By: #### C MP ####[facility] Lnbdjazxzh0069 [place] [address]Dr. Farhat Elvis EGFR-NON AF QATARI 45 mL/min/1.73m2 Critically low >=60 [facility] Comment on above: Performed By: #### C MP ####[facility] Oqnilfsnhz1202 [place] [address]Dr. Farhat Leal Globulin (S) [Mass/Vol] 3.2 g/dL Normal [facility] Comment on above: Performed By: #### C MP ####[facility] Ugxubyggoj4051 [place] [address]Dr. Farhat Leal Glucose [Mass/Vol] 165 mg/dL Critically high 74-106 [facility] Comment on above: Performed By: #### C MP ####[facility] Shkrdpivai8112 [place] [address]Dr. Farhat Leal Potassium [Moles/Vol] 4.1 mmol/L Normal 3.5-5.1 [facility] Comment on above: Performed By: #### C MP ####[facility] Xoeuviecpt[address] [place], [place] [address]Dr. Farhat Leal Protein [Mass/Vol] 5.7 g/dL Critically low 6.4-8.2 [facility] Comment on above: Performed By: #### C MP ####[facility] Srbvbuzbxb63[address] [place], [place] [address]Dr. Farhat Leal Sodium [Moles/Vol] 138 mmol/L Normal 136-145 [facility] Comment on above: Performed By: #### C MP ####[facility] Dyeeajmkjx[address] [place], [place] [address]Dr. Farhat Leal Urea nitrogen [Mass/Vol] 51.0 mg/dL Critically high 7.0-18.0 [facility] Comment on above: Performed By: #### C MP ####[facility] Ydwupigtnb[address] [place], [place] [address]Dr. Farhat Leal Urea nitrogen/Creatinine [Mass ratio] 33.8 mg/mg Normal [facility] Comment on above: Performed By: #### C MP ####[facility] Voeselpman[address] [place], [place] [address]Dr. Farhat Leal FK506 (TACROLIMUS) WHOLE BLO ODon 06-15-2022 Tacrolimus (FK506), Blood 16.4 ng/mL Normal 2.0-20.0 [facility] Comment on above: Result Comment: Trou gh (immediately following transplant) 15.0 . Trough (steady state, 2 weeks or more after transplant): 3.0 - 8.0 . Performed by LC-MS/MS technology. Performed By: #### F K506T ####[facility] Vgwibusbgm[address] [place], [place] [address]Dr. Farhat Leal PROTIMEon 06-15-2022 INR Coag (PPP) [Relative time] 1.64 {INR} Normal [facility] Comment on above: Performed By: #### P T ####[facility] Uclpkqglum[address] [place], [place] [address]Dr. Farhat Leal INR GUIDELINES SEE BELOW Normal [facility] Comment on above: Result Comment: MALINA RED INR: 2.0 - 3.0 CONDITIONS NOT LISTED BELOW 2.5 - 3.5 FOR PROSTHETIC HEART VALVE REPLACEMENT 2.5 - 3.5 RECURRENT THROMBOSIS Performed By: #### P T ####[facility] Rsknorpebp[address] [place], [place] [address]Dr. Farhat Leal PT Coag (PPP) [Time] 16.9 s Critically high 9.0-11.6 [facility] Comment on above: Performed By: #### P T ####[facility] Pumvuelpex[address] [place], [place] [address]Dr. Farhat Elvis CBC AUTO DIFFon 06-12-2022 BASO # 0.0 103/ul Normal 0.0-0.1 [facility] Comment on above: Performed By: #### C BC ####[facility] Xzleitrebp[address] [place], [place] [address]Dr. Farhat Leal Basophils/100 WBC (Bld) 0.4 % Normal 0.2-2.0 [facility] Comment on above: Performed By: #### C BC ####[facility] Yigjevipju[address] [place], [place] [address]Dr. Farhat Leal EO # 0.4 103/ul Normal 0.0-0.7 [facility] Comment on above: Performed By: #### C BC ####[facility] Bpplbkbmvy[address] [place], [place] [address]Dr. Farhat Leal Eosinophils/100 WBC (Bld) 5.4 % Normal 0.9-7.0 [facility] Comment on above: Performed By: #### C BC ####[facility] Wrnbz[address]bw[address] [place], [place] [address]Dr. Farhat Leal Erythrocyte distribution width (RBC) [Ratio] 14.7 % Normal 11.0-15.0 [facility] Comment on above: Performed By: #### C BC ####[facility] Pexbtkdflp[address] [place], [place] [address]Dr. Farhat Leal Hematocrit (Bld) [Volume fraction] 34.8 % Critically low 42.0-54.0 [facility] Comment on above: Performed By: #### C BC ####[facility] Qyescnyvxe224[address] [place], [place] [address]Dr. Farhat Leal Hemoglobin (Bld) [Mass/Vol] 11.7 g/dL Critically low 14.0-18.0 [facility] Comment on above: Performed By: #### C BC ####[facility] [address]eyvxsywxf[address] [place] [address]Dr. Farhat Leal IG # 0.02 10e3/ul Normal 0.00-0.03 [facility] Comment on above: Performed By: #### C BC ####[facility] Rccbtpemiz3446 [place] [address]Dr. Farhat Elvis IG % 0.3 % Normal 0.0-0.5 [facility] Comment on above: Performed By: #### C BC ####[facility] Eeduywlnmd42[address] [place] [address]Dr. Farhat Elvis LYMPH # 2.5 103/ul Normal 1.2-3.8 [facility] Comment on above: Performed By: #### C BC ####[facility] Caftshlpop75[address] [place] [address]Dr. Farhat Leal Lymphocytes/100 WBC (Bld) 36.8 % Normal 20.5-60.0 [facility] Comment on above: Performed By: #### C BC ####[facility] Vuoabsonrf80[address] [place] [address]Dr. Madelynlorri Leal MANUAL DIFF REQ NO Normal [facility] Comment on above: Performed By: #### C BC ####[facility] Wumuanxheb3523 [place] [address]Dr. Farhat Elvis MCH (RBC) [Entitic mass] 30.9 pg Normal 25.9-34.0 [facility] Comment on above: Performed By: #### C BC ####[facility] Yauqepdrus8726 [place] [address]Dr. Farhat Elvis MCHC (RBC) [Mass/Vol] 33.6 g/dL Normal 29.9-35.2 [facility] Comment on above: Performed By: #### C BC ####[facility] Kjpysegxyr5230 [place] [address]Dr. Farhat Elvis MCV (RBC) [Entitic vol] 91.8 fL Normal 80.0-94.0 [facility] Comment on above: Performed By: #### C BC ####[facility] Fhjtwiszag8866 [place] [address]Dr. Farhat Leal MONO # 0.8 103/ul Normal 0.3-0.8 [facility] Comment on above: Performed By: #### C BC ####[facility] Ngvxewkqoj2793 [place] [address]Dr. Farhat Leal Monocytes/100 WBC (Bld) 11.9 % Normal 1.7-12.0 [facility] Comment on above: Performed By: #### C BC ####[facility] Yrqissjytn0641 [place] [address]Dr. Farhat Leal NEUT # 3.1 103/ul Normal 1.4-6.5 [facility] Comment on above: Performed By: #### C BC ####[facility] Utnxvlqsfc7694 [place] [address]Dr. Farhat Leal Neutrophils/100 WBC (Bld) 45.2 % Normal 43.0-75.0 [facility] Comment on above: Performed By: #### C BC ####[facility] Bqvkucbfty1758 [place] [address]Dr. Farhat Leal Platelet mean volume (Bld) [Entitic vol] 10.5 fL Normal 9.5-13.5 [facility] Comment on above: Performed By: #### C BC ####[facility] Xnduisnzjo2939 [place] [address]Dr. Farhat Leal PLT 175 103/ul Normal 150-450 [facility] Comment on above: Performed By: #### C BC ####[facility] Gsweouhckm0658 [place] [address]Dr. Farhat Leal RBC 3.79 106/ul Critically low 4.70-6.10 [facility] Comment on above: Performed By: #### C BC ####[facility] Wdqzotbywh4149 [place] [address]Dr. Farhat Leal WBC 6.8 103/ul Normal 4.0-11.0 [facility] Comment on above: Performed By: #### C BC ####[facility] Sslkwxvkld5383 [place] [address]Dr. Farhat Leal MAGNESIUMon 06-12-2022 Magnesium [Mass/Vol] 1.6 mg/dL Critically low 1.8-2.4 [facility] Comment on above: Performed By: #### C MP, MG, PHOS ####[facility] Xoxutjelfd7997 [place] [address]Dr. Farhat Leal PHOSPHORUSon 06-12-2022 Phosphate [Mass/Vol] 3.8 mg/dL Normal 2.6-4.7 [facility] Comment on above: Performed By: #### C MP, MG, PHOS ####[facility] Vosyxzwzto4689 [place] [address]Dr. Farhat Leal PROF 14(COMP METB)on 023 Albumin [Mass/Vol] 2.6 g/dL Critically low 3.4-5.0 [facility] Comment on above: Performed By: #### C MP, MG, PHOS ####[facility] Zkkdpsvpgb3604 [place] [address]Dr. Farhat Leal Albumin/Globulin [Mass ratio] 0.8 {ratio} Normal [facility] Comment on above: Performed By: #### C MP, MG, PHOS ####[facility] Yiqqbqrbim1199 [place] [address]Dr. Farhat Leal ALP [Catalytic activity/Vol] 64 U/L Normal 46-116 [facility] Comment on above: Performed By: #### C MP, MG, PHOS ####[facility] Hhqwnbdjon4310 [place] [address]Dr. Farhat Leal ALT [Catalytic activity/Vol] 18 U/L Normal 16-63 [facility] Comment on above: Performed By: #### C MP, MG, PHOS ####[facility] Mgmlgjgmvl4377 [place] [address]Dr. Farhat Leal Anion gap [Moles/Vol] 12.9 mmol/L Normal [facility] Comment on above: Performed By: #### C MP, MG, PHOS ####[facility] Axmzybgoeu4920 [place] [address]DrSkylar Leal AST [Catalytic activity/Vol] 18 U/L Normal 15-37 [facility] Comment on above: Performed By: #### C MP, MG, PHOS ####[facility] Qkuvbemhnl7916 [place] [address]Dr. Farhat Leal Bilirubin [Mass/Vol] 0.4 mg/dL Normal 0.2-1.0 [facility] Comment on above: Performed By: #### C MP, MG, PHOS ####[facility] Yyshusakth[address] [place], [place] [address]Dr. Farhat Leal Calcium [Mass/Vol] 8.7 mg/dL Normal 8.5-10.1 [facility] Comment on above: Performed By: #### C MP, MG, PHOS ####[facility] Txukofzbzo[address] [place], [place] [address]Dr. Farhat Leal Chloride [Moles/Vol] 105 mmol/L Normal 98-107 [facility] Comment on above: Performed By: #### C MP, MG, PHOS ####[facility] Xehdzstltc[address] [place], [place] [address]Dr. Farhat Leal CO2 [Moles/Vol] 27.9 mmol/L Normal 21.0-32.0 [facility] Comment on above: Performed By: #### C MP, MG, PHOS ####[facility] Zehqaoltfg07[address] [place], [place] [address]Dr. Farhat Leal Creatinine [Mass/Vol] 1.53 mg/dL Critically high 0.70-1.30 [facility] Comment on above: Performed By: #### C MP, MG, PHOS ####[facility] Sjrstbabri[address] [place], [place] [address]Dr. Farhat Leal EGFR-AF QATARI 54 mL/min/1.73m2 Critically low >=60 [facility] Comment on above: Performed By: #### C MP, MG, PHOS ####[facility] Jqdysshtxy[address] [place], [place] [address]Dr. Farhat Leal EGFR-NON AF QATARI 44 mL/min/1.73m2 Critically low >=60 [facility] Comment on above: Performed By: #### C MP, MG, PHOS ####[facility] Wembqomsls3540 [place] [address]Dr. Farhat Leal Globulin (S) [Mass/Vol] 3.4 g/dL Normal [facility] Comment on above: Performed By: #### C MP, MG, PHOS ####[facility] Mdtobuajrh2518 [place] [address]Dr. Farhat Leal Glucose [Mass/Vol] 179 mg/dL Critically high 74-106 [facility] Comment on above: Performed By: #### C MP, MG, PHOS ####[facility] Zcxmutzbsk235[address] [place], [place] [address]Dr. Farhat Leal Potassium [Moles/Vol] 3.8 mmol/L Normal 3.5-5.1 [facility] Comment on above: Performed By: #### C MP, MG, PHOS ####[facility] Jbrfplrujt9[address] [place], [place] [address]Dr. Farhat Leal Protein [Mass/Vol] 6.0 g/dL Critically low 6.4-8.2 [facility] Comment on above: Performed By: #### C MP, MG, PHOS ####[facility] Jgnevphfmy[address] [place], [place] [address]Dr. Farhat Leal Sodium [Moles/Vol] 142 mmol/L Normal 136-145 [facility] Comment on above: Performed By: #### C MP, MG, PHOS ####[facility] Hkajhcbycj[address] [place], [place] [address]Dr. Farhat Leal Urea nitrogen [Mass/Vol] 56.0 mg/dL Critically high 7.0-18.0 [facility] Comment on above: Performed By: #### C MP, MG, PHOS ####[facility] Qgfkvmeair335[address] [place], [place] [address]Dr. Farhat Leal Urea nitrogen/Creatinine [Mass ratio] 36.6 mg/mg Normal [facility] Comment on above: Performed By: #### C MP, MG, PHOS ####[facility] Omsploutmb6[address] [place], [place] [address]Dr. Farhat Leal FK506 (TACROLIMUS) WHOLE BLO ODon 06-08-2022 Tacrolimus (FK506), Blood 13.2 ng/mL Normal 2.0-20.0 [facility] Comment on above: Result Comment: Trou gh (immediately following transplant) 15.0 . Trough (steady state, 2 weeks or more after transplant): 3.0 - 8.0 . Performed by LC-MS/MS technology. Performed By: #### F K506T ####[facility] Joyznkourw[address] [place], [place] [address]Dr. Farhat Elvis CBC AUTO DIFFon 06-05-2022 BASO # 0.1 103/ul Normal 0.0-0.1 [facility] Comment on above: Performed By: #### C BC ####[facility] Qfkzslxqui[address] [place], [place] [address]Dr. Farhat Leal Basophils/100 WBC (Bld) 0.8 % Normal 0.2-2.0 [facility] Comment on above: Performed By: #### C BC ####[facility] Kkjzhvhcqp[address] [place], [place] [address]Dr. Madelynlorri Leal EO # 0.3 103/ul Normal 0.0-0.7 [facility] Comment on above: Performed By: #### C BC ####[facility] Bjqeqnaepr742[address] [place], [place] [address]Dr. Farhat Leal Eosinophils/100 WBC (Bld) 4.7 % Normal 0.9-7.0 [facility] Comment on above: Performed By: #### C BC ####[facility] Prcvbqptob7[address] [place], [place] [address]Dr. Farhat Leal Erythrocyte distribution width (RBC) [Ratio] 15.1 % Critically high 11.0-15.0 [facility] Comment on above: Performed By: #### C BC ####[facility] Rawliquwin[address] [place], [place] [address]Dr. Farhat Leal Hematocrit (Bld) [Volume fraction] 35.5 % Critically low 42.0-54.0 [facility] Comment on above: Performed By: #### C BC ####[facility] Hqqzespcrd5118 [place] [address]Dr. Farhat Leal Hemoglobin (Bld) [Mass/Vol] 11.7 g/dL Critically low 14.0-18.0 [facility] Comment on above: Performed By: #### C BC ####[facility] Tafibfvtpw3749 [place] [address]Dr. Farhat Leal IG # 0.01 10e3/ul Normal 0.00-0.03 [facility] Comment on above: Performed By: #### C BC ####[facility] Gmtmjhwgke96[address] [place], [place] [address]Dr. Farhat Leal IG % 0.2 % Normal 0.0-0.5 [facility] Comment on above: Performed By: #### C BC ####[facility] Dfuountzoo[address] [place], [place] [address]Dr. Farhat Leal LYMPH # 2.1 103/ul Normal 1.2-3.8 [facility] Comment on above: Performed By: #### C BC ####[facility] Siynylksgo[address] [place], [place] [address]Dr. Madelynlorri Leal Lymphocytes/100 WBC (Bld) 34.5 % Normal 20.5-60.0 [facility] Comment on above: Performed By: #### C BC ####[facility] Jcobocogif[address] [place], [place] [address]Dr. Farhat Leal MANUAL DIFF REQ NO Normal [facility] Comment on above: Performed By: #### C BC ####[facility] Ywufywszqg[address] [place], [place] [address]Dr. Farhat Leal MCH (RBC) [Entitic mass] 30.6 pg Normal 25.9-34.0 [facility] Comment on above: Performed By: #### C BC ####[facility] Xymdtectja[address] [place], [place] [address]Dr. Farhat Leal MCHC (RBC) [Mass/Vol] 33.0 g/dL Normal 29.9-35.2 [facility] Comment on above: Performed By: #### C BC ####[facility] Bkgiokvtvn5950 [place] [address]Dr. Farhat Leal MCV (RBC) [Entitic vol] 92.9 fL Normal 80.0-94.0 [facility] Comment on above: Performed By: #### C BC ####[facility] Trdbmsfnkp4338 [place] [address]Dr. Farhat Leal MONO # 0.7 103/ul Normal 0.3-0.8 [facility] Comment on above: Performed By: #### C BC ####[facility] Frbbtkjutg8428 [place] [address]Dr. Farhat Leal Monocytes/100 WBC (Bld) 11.4 % Normal 1.7-12.0 [facility] Comment on above: Performed By: #### C BC ####[facility] Kqhicnumqb0951 [place] [address]Dr. Farhat Leal NEUT # 2.9 103/ul Normal 1.4-6.5 [facility] Comment on above: Performed By: #### C BC ####[facility] Hxilzkksnx2875 [place] [address]Dr. Farhat Leal Neutrophils/100 WBC (Bld) 48.4 % Normal 43.0-75.0 [facility] Comment on above: Performed By: #### C BC ####[facility] Zibpvcnger8486 [place] [address]Dr. Farhat Leal Platelet mean volume (Bld) [Entitic vol] 10.7 fL Normal 9.5-13.5 [facility] Comment on above: Performed By: #### C BC ####[facility] Zaesqrlvgt8104 [place] [address]Dr. Farhat Leal PLT 185 103/ul Normal 150-450 [facility] Comment on above: Performed By: #### C BC ####[facility] Gdvstzzbdd4740 [place] [address]Dr. Farhat Leal RBC 3.82 106/ul Critically low 4.70-6.10 [facility] Comment on above: Performed By: #### C BC ####[facility] Ksnaybibnd0706 [place] [address]Dr. Farhat Leal WBC 6.0 103/ul Normal 4.0-11.0 [facility] Comment on above: Performed By: #### C BC ####[facility] Dtikqzwpdc7961 [place] [address]Dr. Madelynlorri Leal MAGNESIUMon 06-05-2022 Magnesium [Mass/Vol] 1.9 mg/dL Normal 1.8-2.4 [facility] Comment on above: Performed By: #### P HOS, MG ####[facility] Owkcqjfrog3548 [place] [address]Dr. Farhat Leal PHOSPHORUSon 06-05-2022 Phosphate [Mass/Vol] 4.4 mg/dL Normal 2.6-4.7 [facility] Comment on above: Performed By: #### P HOS, MG ####[facility] Wsxfxpopso4323 [place] [address]Dr. Farhat Leal PROTIMEon 06-05-2022 INR Coag (PPP) [Relative time] 2.16 {INR} Normal [facility] Comment on above: Performed By: #### P T ####[facility] Kedchoznpf0483 [place] [address]Dr. Farhat Leal INR GUIDELINES SEE BELOW Normal [facility] Comment on above: Result Comment: MALINA RED INR: 2.0 - 3.0 CONDITIONS NOT LISTED BELOW 2.5 - 3.5 FOR PROSTHETIC HEART VALVE REPLACEMENT 2.5 - 3.5 RECURRENT THROMBOSIS Performed By: #### P T ####[facility] Ucynwdadwa6267 [place] [address]Dr. Farhat Leal PT Coag (PPP) [Time] 21.9 s Critically high 9.0-11.6 [facility] Comment on above: Performed By: #### P T ####[facility] Arzkljtlcg[address] [place], [place] [address]Dr. Farhat Leal FK506 (TACROLIMUS) WHOLE BLO ODon 06-01-2022 Tacrolimus (FK506), Blood 26.4 ng/mL Invalid Interpretation Code 2.0-20.0 [facility] Comment on above: Result Comment: Trou gh (immediately following transplant) 15.0 . Trough (steady state, 2 weeks or more after transplant): 3.0 - 8.0 . Performed by LC-MS/MS technology.Patient drug level exceeds published reference range. Evaluateclinically for signs of potential toxicity. Performed By: #### F K506T ####[facility] Xfajouttyc2610 [place] [address]Dr. Farhat Leal CBC AUTO DIFFon 05-29-2022 BASO # 0.0 103/ul Normal 0.0-0.1 [facility] Comment on above: Performed By: #### C BC ####[facility] Ldefmcercp[address] [place], [place] [address]Dr. Farhat Leal Basophils/100 WBC (Bld) 0.6 % Normal 0.2-2.0 [facility] Comment on above: Performed By: #### C BC ####[facility] Snapvpyxyl87[address] [place], [place] [address]Dr. Farhat Leal EO # 0.3 103/ul Normal 0.0-0.7 [facility] Comment on above: Performed By: #### C BC ####[facility] Ezdukttstn[address] [place], [place] [address]Dr. Farhat Leal Eosinophils/100 WBC (Bld) 4.7 % Normal 0.9-7.0 [facility] Comment on above: Performed By: #### C BC ####[facility] Gpptrlfkin[address] [place], [place] [address]Dr. Farhat Leal Erythrocyte distribution width (RBC) [Ratio] 15.3 % Critically high 11.0-15.0 [facility] Comment on above: Performed By: #### C BC ####[facility] Kmolyrvkyj[address] [place], [place] [address]Dr. Farhat Leal Hematocrit (Bld) [Volume fraction] 36.6 % Critically low 42.0-54.0 [facility] Comment on above: Performed By: #### C BC ####[facility] Bedakmhset[address] [place], [place] [address]Dr. Farhat Leal Hemoglobin (Bld) [Mass/Vol] 12.3 g/dL Critically low 14.0-18.0 [facility] Comment on above: Performed By: #### C BC ####[facility] Hovjfmxwrc8453 [place] [address]DrSkylar Leal IG # 0.02 10e3/ul Normal 0.00-0.03 [facility] Comment on above: Performed By: #### C BC ####[facility] Fyinhtmszd9325 [place] [address]DrSkylar Leal IG % 0.3 % Normal 0.0-0.5 [facility] Comment on above: Performed By: #### C BC ####[facility] Klfbtycvqv1313 [place] [address]DrSkylar Leal LYMPH # 2.8 103/ul Normal 1.2-3.8 [facility] Comment on above: Performed By: #### C BC ####[facility] Sncsvtxont6148 [place] [address]DrSkylar Leal Lymphocytes/100 WBC (Bld) 44.4 % Normal 20.5-60.0 [facility] Comment on above: Performed By: #### C BC ####[facility] Rktqaaggtj6781 [place] [address]DrSkylar Leal MANUAL DIFF REQ NO Normal [facility] Comment on above: Performed By: #### C BC ####[facility] Hiwfghxeub6340 [place] [address]DrSkylar Leal MCH (RBC) [Entitic mass] 30.4 pg Normal 25.9-34.0 [facility] Comment on above: Performed By: #### C BC ####[facility] Wmkdveippy5486 [place] [address]DrSkylar Leal MCHC (RBC) [Mass/Vol] 33.6 g/dL Normal 29.9-35.2 [facility] Comment on above: Performed By: #### C BC ####[facility] Aboertkyfg2995 [place] [address]DrSkylar Leal MCV (RBC) [Entitic vol] 90.4 fL Normal 80.0-94.0 [facility] Comment on above: Performed By: #### C BC ####[facility] Uwshnkcikf8835 [place] [address]Dr. Farhat Leal MONO # 0.7 103/ul Normal 0.3-0.8 [facility] Comment on above: Performed By: #### C BC ####[facility] Xwtgtejklv1565 [place] [address]Dr. Farhat Leal Monocytes/100 WBC (Bld) 10.7 % Normal 1.7-12.0 [facility] Comment on above: Performed By: #### C BC ####[facility] Wwwdtardkj4119 [place] [address]Dr. Farhat Leal NEUT # 2.5 103/ul Normal 1.4-6.5 [facility] Comment on above: Performed By: #### C BC ####[facility] Upzafrlhte1598 [place] [address]Dr. Farhat Leal Neutrophils/100 WBC (Bld) 39.3 % Critically low 43.0-75.0 [facility] Comment on above: Performed By: #### C BC ####[facility] Esjlifzybh4405 [place] [address]Dr. Farhat Leal Platelet mean volume (Bld) [Entitic vol] 10.5 fL Normal 9.5-13.5 [facility] Comment on above: Performed By: #### C BC ####[facility] Mnlraffpmu5537 [place] [address]Dr. Farhat Leal PLT 190 103/ul Normal 150-450 [facility] Comment on above: Performed By: #### C BC ####[facility] Pznqedctwa6233 [place] [address]Dr. Farhat Leal RBC 4.05 106/ul Critically low 4.70-6.10 [facility] Comment on above: Performed By: #### C BC ####[facility] Xspdziuqan8545 [place] [address]Dr. Farhat Leal WBC 6.4 103/ul Normal 4.0-11.0 [facility] Comment on above: Performed By: #### C BC ####[facility] Nozkrgnepf3422 [place] [address]Dr. Farhat Leal PROF 14(COMP METB)on 023 Albumin [Mass/Vol] 2.5 g/dL Critically low 3.4-5.0 [facility] Comment on above: Performed By: #### C MP ####[facility] Zxrpaxptib7806 [place] [address]Dr. Farhat Leal Albumin/Globulin [Mass ratio] 0.8 {ratio} Normal [facility] Comment on above: Performed By: #### C MP ####[facility] Pupyzxfbmh8827 [place] [address]Dr. Farhat Leal ALP [Catalytic activity/Vol] 61 U/L Normal 46-116 [facility] Comment on above: Performed By: #### C MP ####[facility] Atkgdcxkha239[address] [place], [place] [address]Dr. Farhat Leal ALT [Catalytic activity/Vol] 16 U/L Normal 16-63 [facility] Comment on above: Performed By: #### C MP ####[facility] Qgfgcelyhv[address] [place], [place] [address]Dr. Farhat Leal Anion gap [Moles/Vol] 12.3 mmol/L Normal [facility] Comment on above: Performed By: #### C MP ####[facility] Bwvxjtjvkx[address] [place], [place] [address]Dr. Farhat Leal AST [Catalytic activity/Vol] 18 U/L Normal 15-37 [facility] Comment on above: Performed By: #### C MP ####[facility] Aeehhwrxyt207[address] [place], [place] [address]Dr. Farhat Leal Bilirubin [Mass/Vol] 0.5 mg/dL Normal 0.2-1.0 [facility] Comment on above: Performed By: #### C MP ####[facility] Qtzcisfcng9[address] [place], [place] [address]Dr. Farhat Leal Calcium [Mass/Vol] 8.6 mg/dL Normal 8.5-10.1 [facility] Comment on above: Performed By: #### C MP ####[facility] Eimtpikyoh2505 [place] [address]Dr. Farhat Leal Chloride [Moles/Vol] 105 mmol/L Normal 98-107 [facility] Comment on above: Performed By: #### C MP ####[facility] Csxufkmsxy1579 [place] [address]Dr. Farhat Leal CO2 [Moles/Vol] 28.6 mmol/L Normal 21.0-32.0 [facility] Comment on above: Performed By: #### C MP ####[facility] Hbfcoeczrf[address] [place] [address]Dr. Farhat Leal Creatinine [Mass/Vol] 1.47 mg/dL Critically high 0.70-1.30 [facility] Comment on above: Performed By: #### C MP ####[facility] Jmgykuydfh[address] [place], [place] [address]Dr. Farhat Elvis EGFR-AF QATARI 56 mL/min/1.73m2 Critically low >=60 [facility] Comment on above: Performed By: #### C MP ####[facility] Oxbnacxvcd6[address] [place] [address]Dr. Farhat Leal EGFR-NON AF QATARI 46 mL/min/1.73m2 Critically low >=60 [facility] Comment on above: Performed By: #### C MP ####[facility] Qoyykldxcs26[address] [place] [address]Dr. Farhat Elvis Globulin (S) [Mass/Vol] 3.3 g/dL Normal [facility] Comment on above: Performed By: #### C MP ####[facility] Thuypukwlo[address] [place] [id number]. Farhat Elvis Glucose [Mass/Vol] 164 mg/dL Critically high 74-106 [facility] Comment on above: Performed By: #### C MP ####[facility] Evzcvfxrpg0832 [place] [address]Dr. Farhat Elvis Potassium [Moles/Vol] 3.9 mmol/L Normal 3.5-5.1 [facility] Comment on above: Performed By: #### C MP ####[facility] Sisffdcnyo[address] [place] [address]Dr. Farhat Leal Protein [Mass/Vol] 5.8 g/dL Critically low 6.4-8.2 [facility] Comment on above: Performed By: #### C MP ####[facility] Xnjfebnzda9258 [place] [address]Dr. Farhat Leal Sodium [Moles/Vol] 142 mmol/L Normal 136-145 [facility] Comment on above: Performed By: #### C MP ####[facility] Rshlqpembw65[address] [place] [address]Dr. Farhat Leal Urea nitrogen [Mass/Vol] 53.0 mg/dL Critically high 7.0-18.0 [facility] Comment on above: Performed By: #### C MP ####[facility] Sriaviojnf020[address] [place], [place] [address]Dr. Farhat Leal Urea nitrogen/Creatinine [Mass ratio] 36.1 mg/mg Normal [facility] Comment on above: Performed By: #### C MP ####[facility] Lprkxuvpzb11[address] [place], [place] [address]Dr. Farhat Leal PROTIMEon 05-29-2022 INR Coag (PPP) [Relative time] 2.41 {INR} Normal [facility] Comment on above: Performed By: #### P T ####[facility] Plodbvxfht[address] [place], [place] [address]Dr. Farhat Leal INR GUIDELINES SEE BELOW Normal [facility] Comment on above: Result Comment: MALINA RED INR: 2.0 - 3.0 CONDITIONS NOT LISTED BELOW 2.5 - 3.5 FOR PROSTHETIC HEART VALVE REPLACEMENT 2.5 - 3.5 RECURRENT THROMBOSIS Performed By: #### P T ####[facility] Tnnxqstybk13[address] [place], [place] [address]Dr. Farhat Leal PT Coag (PPP) [Time] 24.3 s Critically high 9.0-11.6 [facility] Comment on above: Performed By: #### P T ####[facility] Hwpmgneglo7[address] [place] [address]Dr. Farhat Leal FK506 (TACROLIMUS) WHOLE BLO ODon 05-25-2022 Tacrolimus (FK506), Blood 5.1 ng/mL Normal 2.0-20.0 [facility] Comment on above: Result Comment: Trou gh (immediately following transplant) 15.0 . Trough (steady state, 2 weeks or more after transplant): 3.0 - 8.0 . Performed by LC-MS/MS technology. Performed By: #### F K506T ####[facility] Mloqiiuhbp90[address] [place], [place] [address]Dr. Farhat Leal CBC AUTO DIFFon 05-22-2022 BASO # 0.0 103/ul Normal 0.0-0.1 [facility] Comment on above: Performed By: #### C BC ####[facility] Glnaslglub460[address] [place], [place] [address]Dr. Farhat Leal Basophils/100 WBC (Bld) 0.5 % Normal 0.2-2.0 [facility] Comment on above: Performed By: #### C BC ####[facility] Josawggwbq420[address] [place], [place] [address]Dr. Farhat Leal EO # 0.2 103/ul Normal 0.0-0.7 [facility] Comment on above: Performed By: #### C BC ####[facility] Klhespwfbc030[address] [place], [place] [address]Dr. Farhat Leal Eosinophils/100 WBC (Bld) 4.0 % Normal 0.9-7.0 [facility] Comment on above: Performed By: #### C BC ####[facility] Gsqchklpcy365[address] [place], [place] [address]Dr. Farhat Leal Erythrocyte distribution width (RBC) [Ratio] 15.5 % Critically high 11.0-15.0 [facility] Comment on above: Performed By: #### C BC ####[facility] Mzzodqxrdr214[address] [place], [place] [address]Dr. Farhat Leal Hematocrit (Bld) [Volume fraction] 34.1 % Critically low 42.0-54.0 [facility] Comment on above: Performed By: #### C BC ####[facility] Zbajhtkdit5[address] [place] [address]Dr. Farhat Leal Hemoglobin (Bld) [Mass/Vol] 11.3 g/dL Critically low 14.0-18.0 [facility] Comment on above: Performed By: #### C BC ####[facility] Axwhmvplsh26[address] [place] [address]Dr. Farhat Leal IG # 0.03 10e3/ul Normal 0.00-0.03 [facility] Comment on above: Performed By: #### C BC ####[facility] Byzlvsmhav8610 [place] [address]Dr. Farhat Leal IG % 0.5 % Normal 0.0-0.5 [facility] Comment on above: Performed By: #### C BC ####[facility] Cxayenbfya2775 [place] [address]Dr. Farhat Leal LYMPH # 2.1 103/ul Normal 1.2-3.8 [facility] Comment on above: Performed By: #### C BC ####[facility] Ysiouculbo1196 [place] [address]Dr. Farhat Leal Lymphocytes/100 WBC (Bld) 34.6 % Normal 20.5-60.0 [facility] Comment on above: Performed By: #### C BC ####[facility] Xipmubiwak69[address] [place] [address]Dr. Farhat Leal MANUAL DIFF REQ NO Normal [facility] Comment on above: Performed By: #### C BC ####[facility] Bgwbztdnvg33[address] [place] [address]Dr. Farhat Leal MCH (RBC) [Entitic mass] 30.3 pg Normal 25.9-34.0 [facility] Comment on above: Performed By: #### C BC ####[facility] Dvhfyydrdr9039 [place] [address]Dr. Farhat Leal MCHC (RBC) [Mass/Vol] 33.1 g/dL Normal 29.9-35.2 [facility] Comment on above: Performed By: #### C BC ####[facility] Wmkynsgghv16[address] [place] [address]Dr. Farhat Leal MCV (RBC) [Entitic vol] 91.4 fL Normal 80.0-94.0 [facility] Comment on above: Performed By: #### C BC ####[facility] Lvlbzehhom5172 [place] [address]Dr. Farhat Leal MONO # 0.7 103/ul Normal 0.3-0.8 [facility] Comment on above: Performed By: #### C BC ####[facility] Yhzilzuotr3603 [place] [address]Dr. Farhat Leal Monocytes/100 WBC (Bld) 11.6 % Normal 1.7-12.0 [facility] Comment on above: Performed By: #### C BC ####[facility] Ehuqpifbkh040[address] [place], [place] [address]Dr. Farhat Leal NEUT # 2.9 103/ul Normal 1.4-6.5 [facility] Comment on above: Performed By: #### C BC ####[facility] Rltaexbtuw[address] [place], [place] [address]Dr. Farhat Leal Neutrophils/100 WBC (Bld) 48.8 % Normal 43.0-75.0 [facility] Comment on above: Performed By: #### C BC ####[facility] Ccgidnlkpf33[address] [place], [place] [address]Dr. Farhat Leal Platelet mean volume (Bld) [Entitic vol] 10.9 fL Normal 9.5-13.5 [facility] Comment on above: Performed By: #### C BC ####[facility] Zezqndphfd59[address] [place], [place] [address]Dr. Farhat Leal PLT 186 103/ul Normal 150-450 [facility] Comment on above: Performed By: #### C BC ####[facility] Hkjfbxwcaa057[address] [place], [place] [address]Dr. Farhat Leal RBC 3.73 106/ul Critically low 4.70-6.10 [facility] Comment on above: Performed By: #### C BC ####[facility] Wlspoyvkio8[address] [place] [address]Dr. Farhat Leal WBC 6.0 103/ul Normal 4.0-11.0 [facility] Comment on above: Performed By: #### C BC ####[facility] Depvrjikzr8[address] [place] [address]Dr. Farhat Leal PROF 14(COMP METB)on 023 Albumin [Mass/Vol] 2.7 g/dL Critically low 3.4-5.0 [facility] Comment on above: Performed By: #### C MP ####[facility] Dcekknizqv1856 [place] [address]Dr. Farhat Leal Albumin/Globulin [Mass ratio] 0.8 {ratio} Normal [facility] Comment on above: Performed By: #### C MP ####[facility] Ixiengtjmw4087 [place] [address]Dr. Farhat Leal ALP [Catalytic activity/Vol] 60 U/L Normal 46-116 [facility] Comment on above: Performed By: #### C MP ####[facility] Ejzadwslcq0[address] [place] [address]Dr. Farhat Leal ALT [Catalytic activity/Vol] 17 U/L Normal 16-63 [facility] Comment on above: Performed By: #### C MP ####[facility] Srpwtlxiyl3240 [place] [address]Dr. Farhat Leal Anion gap [Moles/Vol] 9.6 mmol/L Normal [facility] Comment on above: Performed By: #### C MP ####[facility] Jcqfscrnwm1193 [place] [address]Dr. Farhat Leal AST [Catalytic activity/Vol] 14 U/L Critically low 15-37 [facility] Comment on above: Performed By: #### C MP ####[facility] Irytopglie9201 [place] [address]Dr. Farhat Leal Bilirubin [Mass/Vol] 0.5 mg/dL Normal 0.2-1.0 [facility] Comment on above: Performed By: #### C MP ####[facility] Tfmdilttvw[address] [place] [address]Dr. Farhat Leal Calcium [Mass/Vol] 8.4 mg/dL Critically low 8.5-10.1 [facility] Comment on above: Performed By: #### C MP ####[facility] Igrixjyskv6966 [place] [address]Dr. Farhat Leal Chloride [Moles/Vol] 104 mmol/L Normal 98-107 [facility] Comment on above: Performed By: #### C MP ####[facility] Ykwrnorisk7867 [place] [address]Dr. Farhat Leal CO2 [Moles/Vol] 27.2 mmol/L Normal 21.0-32.0 [facility] Comment on above: Performed By: #### C MP ####[facility] Gwuvevsbea60[address] [place], [place] [address]Dr. Farhat Leal Creatinine [Mass/Vol] 1.24 mg/dL Normal 0.70-1.30 [facility] Comment on above: Performed By: #### C MP ####[facility] Zhrpzbjdky870[address] [place], [place] [address]Dr. Farhat Leal EGFR-AF QATARI >60 Normal >=60 [facility] Comment on above: Performed By: #### C MP ####[facility] Cufasjzmln7[address] [place], [place] [address]Dr. Farhat Elvis EGFR-NON AF QATARI 57 mL/min/1.73m2 Critically low >=60 [facility] Comment on above: Performed By: #### C MP ####[facility] Neqdtmlwpx56299[address] [place], [place] [address]Dr. Farhat Leal Globulin (S) [Mass/Vol] 3.3 g/dL Normal [facility] Comment on above: Performed By: #### C MP ####[facility] Mstpkloywv3176 [place] [address]Dr. Farhat Leal Glucose [Mass/Vol] 275 mg/dL Critically high 74-106 [facility] Comment on above: Performed By: #### C MP ####[facility] Vnzuqzhqpo2596 [place] [address]Dr. Farhat Leal Potassium [Moles/Vol] 3.8 mmol/L Normal 3.5-5.1 [facility] Comment on above: Performed By: #### C MP ####[facility] Jfkmnmjcjp1705 [place] [address]Dr. Farhat Leal Protein [Mass/Vol] 6.0 g/dL Critically low 6.4-8.2 [facility] Comment on above: Performed By: #### C MP ####[facility] Wgmkjgmabz8739 [place] [address]Dr. Farhat Leal Sodium [Moles/Vol] 137 mmol/L Normal 136-145 [facility] Comment on above: Performed By: #### C MP ####[facility] Nsekjwpkzl56[address] [place], [place] [address]Dr. Farhat Leal Urea nitrogen [Mass/Vol] 54.0 mg/dL Critically high 7.0-18.0 [facility] Comment on above: Performed By: #### C MP ####[facility] Ryfpryrrke7[address] [place], [place] [address]Dr. Farhat Leal Urea nitrogen/Creatinine [Mass ratio] 43.5 mg/mg Normal [facility] Comment on above: Performed By: #### C MP ####[facility] Ruuaecmsga505[address] [place], [place] [address]Dr. Farhat Leal PROTIMEon 05-22-2022 INR Coag (PPP) [Relative time] 2.27 {INR} Normal [facility] Comment on above: Performed By: #### P T ####[facility] Xrhxkuisab[address] [place], [place] [address]Dr. Farhat Leal INR GUIDELINES SEE BELOW Normal [facility] Comment on above: Result Comment: MALINA RED INR: 2.0 - 3.0 CONDITIONS NOT LISTED BELOW 2.5 - 3.5 FOR PROSTHETIC HEART VALVE REPLACEMENT 2.5 - 3.5 RECURRENT THROMBOSIS Performed By: #### P T ####[facility] Qeemqbhghg279[address] [place], [place] [address]Dr. Farhat Leal PT Coag (PPP) [Time] 23.0 s Critically high 9.0-11.6 [facility] Comment on above: Performed By: #### P T ####[facility] Lbalerhqvb2970[address] [place], [place] [address]DrSkylar Leal FK506 (TACROLIMUS) WHOLE BLO ODon 05-19-2022 Tacrolimus (FK506), Blood 7.8 ng/mL Normal 2.0-20.0 [facility] Comment on above: Result Comment: Trou gh (immediately following transplant) 15.0 . Trough (steady state, 2 weeks or more after transplant): 3.0 - 8.0 . Performed by LC-MS/MS technology. Performed By: #### F K506T ####[facility] Uhxiqhxxws811[address] [place], [place] [address]DrSkylar Leal CBC AUTO DIFFon 05-15-2022 BASO # 0.0 103/ul Normal 0.0-0.1 [facility] Comment on above: Performed By: #### C BC ####[facility] Iwvcbdwpwq4420[address] [place], [place] [address]DrSkylar Leal Basophils/100 WBC (Bld) 0.4 % Normal 0.2-2.0 [facility] Comment on above: Performed By: #### C BC ####[facility] Zwvalzgqed1060[address] [place], [place] [address]DrkSylar Leal EO # 0.2 103/ul Normal 0.0-0.7 [facility] Comment on above: Performed By: #### C BC ####[facility] Denjtmqmej8565[address] [place], [place] [address]DrSkylar Leal Eosinophils/100 WBC (Bld) 3.0 % Normal 0.9-7.0 [facility] Comment on above: Performed By: #### C BC ####[facility] Kymgqkmpnw5232[address] [place], [place] [address]DrSkylar Leal Erythrocyte distribution width (RBC) [Ratio] 15.7 % Critically high 11.0-15.0 [facility] Comment on above: Performed By: #### C BC ####[facility] Uzhdubkmfp2901[address] [place], [place] [address]Dr. Yilorri Leal Hematocrit (Bld) [Volume fraction] 36.8 % Critically low 42.0-54.0 [facility] Comment on above: Performed By: #### C BC ####[facility] Doaxxdbcaa2193 [place] [address]Dr. Farhat Leal Hemoglobin (Bld) [Mass/Vol] 12.4 g/dL Critically low 14.0-18.0 [facility] Comment on above: Performed By: #### C BC ####[facility] Tlmwufahtt5945 [place] [address]Dr. Farhat Leal IG # 0.01 10e3/ul Normal 0.00-0.03 [facility] Comment on above: Performed By: #### C BC ####[facility] Sxuobeaxti2694 [place] [address]Dr. Farhat Leal IG % 0.1 % Normal 0.0-0.5 [facility] Comment on above: Performed By: #### C BC ####[facility] Exhfzprclb636[address] [place], [place] [address]Dr. Farhat Leal LYMPH # 2.4 103/ul Normal 1.2-3.8 [facility] Comment on above: Performed By: #### C BC ####[facility] Pmosvdptgx7550[address] [place], [place] [address]Dr. Farhat Leal Lymphocytes/100 WBC (Bld) 35.6 % Normal 20.5-60.0 [facility] Comment on above: Performed By: #### C BC ####[facility] Nwhaibyqzl3233[address] [place], [place] [address]Dr. Farhat Leal MANUAL DIFF REQ NO Normal [facility] Comment on above: Performed By: #### C BC ####[facility] Bjgskrnful9944[address] [place], [place] [address]Dr. Farhat Leal MCH (RBC) [Entitic mass] 30.1 pg Normal 25.9-34.0 [facility] Comment on above: Performed By: #### C BC ####[facility] Srhwlefeor8680[address] [place], [place] [address]Dr. Farhat Leal MCHC (RBC) [Mass/Vol] 33.7 g/dL Normal 29.9-35.2 [facility] Comment on above: Performed By: #### C BC ####[facility] Pnjsuqefgm7766 [place] [address]DrSkylar Leal MCV (RBC) [Entitic vol] 89.3 fL Normal 80.0-94.0 [facility] Comment on above: Performed By: #### C BC ####[facility] Gmjxkamjnu279[address] [place], [place] [address]DrSkylar Leal MONO # 0.7 103/ul Normal 0.3-0.8 [facility] Comment on above: Performed By: #### C BC ####[facility] Iuvjjckstd466[address] [place], [place] [address]DrSkylar Leal Monocytes/100 WBC (Bld) 10.8 % Normal 1.7-12.0 [facility] Comment on above: Performed By: #### C BC ####[facility] Onjlipsmsx7495[address] [place], [place] [address]DrSkylar Leal NEUT # 3.4 103/ul Normal 1.4-6.5 [facility] Comment on above: Performed By: #### C BC ####[facility] Dfxylwserz397[address] [place], [place] [address]DrSkylar Leal Neutrophils/100 WBC (Bld) 50.1 % Normal 43.0-75.0 [facility] Comment on above: Performed By: #### C BC ####[facility] Fidiqfwwsr5088[address] [place], [place] [address]DrSkylar Leal Platelet mean volume (Bld) [Entitic vol] 10.2 fL Normal 9.5-13.5 [facility] Comment on above: Performed By: #### C BC ####[facility] Yofoyitoon8490[address] [place], [place] [address]DrSkylar Leal PLT 190 103/ul Normal 150-450 [facility] Comment on above: Performed By: #### C BC ####[facility] Soahzlnkth469[address] [place], [place] [address]DrSkylar Leal RBC 4.12 106/ul Critically low 4.70-6.10 [facility] Comment on above: Performed By: #### C BC ####[facility] Rkzkbwmhdu8118 [place] [address]Dr. Farhat Leal WBC 6.8 103/ul Normal 4.0-11.0 [facility] Comment on above: Performed By: #### C BC ####[facility] Bxuosoejgn2882 [place] [address]DrSkylar Leal PROF 14(COMP METB)on 023 Albumin [Mass/Vol] 2.8 g/dL Critically low 3.4-5.0 [facility] Comment on above: Performed By: #### C MP ####[facility] Zkqsfdgkqx66[address] [place], [place] [address]DrSkylar Leal Albumin/Globulin [Mass ratio] 0.9 {ratio} Normal [facility] Comment on above: Performed By: #### C MP ####[facility] Znjoepsnob398[address] [place], [place] [address]Dr. Farhat Leal ALP [Catalytic activity/Vol] 66 U/L Normal 46-116 [facility] Comment on above: Performed By: #### C MP ####[facility] Nytzhyueft32[address] [place], [place] [address]DrSkylar Leal ALT [Catalytic activity/Vol] 15 U/L Critically low 16-63 [facility] Comment on above: Performed By: #### C MP ####[facility] Thylzvbmxf3067[address] [place], [place] [address]DrSkylar Leal Anion gap [Moles/Vol] 11.1 mmol/L Normal [facility] Comment on above: Performed By: #### C MP ####[facility] Bupmzyhkdi3030[address] [place], [place] [address]DrSkylar Leal AST [Catalytic activity/Vol] 14 U/L Critically low 15-37 [facility] Comment on above: Performed By: #### C MP ####[facility] Uqxxnhlkmd56[address] [place], [place] [address]DrSkylar Leal Bilirubin [Mass/Vol] 0.8 mg/dL Normal 0.2-1.0 [facility] Comment on above: Performed By: #### C MP ####[facility] Oxssqmtuwe627[address] [place], [place] [address]Dr. Farhat Leal Calcium [Mass/Vol] 8.9 mg/dL Normal 8.5-10.1 [facility] Comment on above: Performed By: #### C MP ####[facility] Ntcvspefnz0950[address] [place], [place] [address]Dr. Farhat Leal Chloride [Moles/Vol] 101 mmol/L Normal 98-107 [facility] Comment on above: Performed By: #### C MP ####[facility] Anpatknbtd9477[address] [place], [place] [address]Dr. Farhat Leal CO2 [Moles/Vol] 28.2 mmol/L Normal 21.0-32.0 [facility] Comment on above: Performed By: #### C MP ####[facility] Avrtuqnady5717[address] [place], [place] [address]Dr. Farhat Elvis Creatinine [Mass/Vol] 1.23 mg/dL Normal 0.70-1.30 [facility] Comment on above: Performed By: #### C MP ####[facility] Xsyebkbnvn260[address] [place], [place] [address]Dr. Farhat Elvis EGFR-AF QATARI >60 Normal >=60 [facility] Comment on above: Performed By: #### C MP ####[facility] Ojhaofqfsp7664[address] [place], [place] [address]Dr. Madelynlorri Elvis EGFR-NON AF QATARI 57 mL/min/1.73m2 Critically low >=60 [facility] Comment on above: Performed By: #### C MP ####[facility] Sdhwzwzfvb8550[address] [place], [place] [address]Dr. Farhat Leal Globulin (S) [Mass/Vol] 3.2 g/dL Normal [facility] Comment on above: Performed By: #### C MP ####[facility] Yuazvnvdvu36299[address] [place], [place] [address]Dr. Farhat Leal Glucose [Mass/Vol] 333 mg/dL Critically high 74-106 [facility] Comment on above: Performed By: #### C MP ####[facility] Fktamarevq11[address] [place] [address]Dr. Farhat Leal Potassium [Moles/Vol] 4.3 mmol/L Normal 3.5-5.1 [facility] Comment on above: Performed By: #### C MP ####[facility] Anjyhnbjit0609 [place] [address]Dr. Farhat Leal Protein [Mass/Vol] 6.0 g/dL Critically low 6.4-8.2 [facility] Comment on above: Performed By: #### C MP ####[facility] Xieyxlvmrj6534[address] [place], [place] [address]Dr. Farhat Leal Sodium [Moles/Vol] 136 mmol/L Normal 136-145 [facility] Comment on above: Performed By: #### C MP ####[facility] Qjyrjyfdwa2238[address] [place], [place] [address]Dr. Farhat Leal Urea nitrogen [Mass/Vol] 58.0 mg/dL Critically high 7.0-18.0 [facility] Comment on above: Performed By: #### C MP ####[facility] Pcaxjxxjsb8875[address] [place], [place] [address]Dr. Farhat Leal Urea nitrogen/Creatinine [Mass ratio] 47.2 mg/mg Normal [facility] Comment on above: Performed By: #### C MP ####[facility] Gokyweradw[address] [place], [place] [address]Dr. Farhat Leal PROTIMEon 05-13-2022 INR Coag (PPP) [Relative time] 3.51 {INR} Normal [facility] Comment on above: Performed By: #### P T ####[facility] Bajvbqrfzp1390[address] [place], [place] [address]Dr. Farhat Leal INR GUIDELINES SEE BELOW Normal [facility] Comment on above: Result Comment: MALINA RED INR: 2.0 - 3.0 CONDITIONS NOT LISTED BELOW 2.5 - 3.5 FOR PROSTHETIC HEART VALVE REPLACEMENT 2.5 - 3.5 RECURRENT THROMBOSIS Performed By: #### P T ####[facility] Avnxovquat9[address] [place] [address]Dr. Farhat Leal PT Coag (PPP) [Time] 34.7 s Critically high 9.0-11.6 [facility] Comment on above: Performed By: #### P T ####[facility] Xbjapaphvs[address] [place], [place] [address]Dr. Farhat Leal FK506 (TACROLIMUS) WHOLE BLO ODon 05-11-2022 Tacrolimus (FK506), Blood 14.4 ng/mL Normal 2.0-20.0 [facility] Comment on above: Result Comment: Trou gh (immediately following transplant) 15.0 . Trough (steady state, 2 weeks or more after transplant): 3.0 - 8.0 . Performed by LC-MS/MS technology. Performed By: #### F K506T ####[facility] Jrtezcpkqq[address] [place], [place] [address]Dr. Farhat Leal CBC AUTO DIFFon 05-08-2022 BASO # 0.0 103/ul Normal 0.0-0.1 [facility] Comment on above: Performed By: #### C BC ####[facility] Ohirswvhem[address] [place], [place] [address]Dr. Farhat Leal Basophils/100 WBC (Bld) 0.5 % Normal 0.2-2.0 [facility] Comment on above: Performed By: #### C BC ####[facility] Seckazoeap[address] [place], [place] [address]Dr. Farhat Leal EO # 0.2 103/ul Normal 0.0-0.7 [facility] Comment on above: Performed By: #### C BC ####[facility] Yaxzwkqjwu[address] [place], [place] [address]Dr. Farhat Leal Eosinophils/100 WBC (Bld) 2.9 % Normal 0.9-7.0 [facility] Comment on above: Performed By: #### C BC ####[facility] Simzpcepjm1912[address] [place], [place] [address]Dr. Farhat Leal Erythrocyte distribution width (RBC) [Ratio] 16.0 % Critically high 11.0-15.0 [facility] Comment on above: Performed By: #### C BC ####[facility] Zdrddujmuq[address] [place] [address]Dr. Farhat Leal Hematocrit (Bld) [Volume fraction] 35.7 % Critically low 42.0-54.0 [facility] Comment on above: Performed By: #### C BC ####[facility] Ilnkncniit6[address] [place] [address]Dr. Farhat Leal Hemoglobin (Bld) [Mass/Vol] 11.9 g/dL Critically low 14.0-18.0 [facility] Comment on above: Performed By: #### C BC ####[facility] Uzrjlilidj9[address] [place], [place] [address]Dr. Farhat Leal IG # 0.03 10e3/ul Normal 0.00-0.03 [facility] Comment on above: Performed By: #### C BC ####[facility] Gzovwilnej[address] [place], [place] [address]DrSkylar Leal IG % 0.5 % Normal 0.0-0.5 [facility] Comment on above: Performed By: #### C BC ####[facility] Nilmxzvatx9435[address] [place], [place] [address]DrSkylar Leal LYMPH # 2.4 103/ul Normal 1.2-3.8 [facility] Comment on above: Performed By: #### C BC ####[facility] Ecndbohnna0664[address] [place], [place] [address]Dr. Farhat Leal Lymphocytes/100 WBC (Bld) 37.8 % Normal 20.5-60.0 [facility] Comment on above: Performed By: #### C BC ####[facility] Jieplmhjlg718[address] [place], [place] [address]DrSkylar Leal MANUAL DIFF REQ NO Normal [facility] Comment on above: Performed By: #### C BC ####[facility] Hdlrkuxtni4260[address] [place], [place] [address]DrSkylar Leal MCH (RBC) [Entitic mass] 30.4 pg Normal 25.9-34.0 [facility] Comment on above: Performed By: #### C BC ####[facility] Qpshceidgl2169 [place] [address]Dr. Farhat Elvis MCHC (RBC) [Mass/Vol] 33.3 g/dL Normal 29.9-35.2 [facility] Comment on above: Performed By: #### C BC ####[facility] Elzqfbumrq4750 [place] [address]Dr. Farhat Leal MCV (RBC) [Entitic vol] 91.1 fL Normal 80.0-94.0 [facility] Comment on above: Performed By: #### C BC ####[facility] Wvpskgowpm108[address] [place], [place] [address]Dr. Farhat Leal MONO # 0.7 103/ul Normal 0.3-0.8 [facility] Comment on above: Performed By: #### C BC ####[facility] Vpitdxdasu9618[address] [place], [place] [address]Dr. Farhat Leal Monocytes/100 WBC (Bld) 11.1 % Normal 1.7-12.0 [facility] Comment on above: Performed By: #### C BC ####[facility] Uvnlivmdho239[address] [place], [place] [address]Dr. Farhat Leal NEUT # 2.9 103/ul Normal 1.4-6.5 [facility] Comment on above: Performed By: #### C BC ####[facility] Zukhdrbdrq207[address] [place], [place] [address]Dr. Farhat Leal Neutrophils/100 WBC (Bld) 47.2 % Normal 43.0-75.0 [facility] Comment on above: Performed By: #### C BC ####[facility] Lofiugodel9[address] [place], [place] [address]DrSkylar Leal Platelet mean volume (Bld) [Entitic vol] 11.0 fL Normal 9.5-13.5 [facility] Comment on above: Performed By: #### C BC ####[facility] Udohxvcete164[address] [place], [place] [address]Dr. Farhat Leal PLT 191 103/ul Normal 150-450 [facility] Comment on above: Performed By: #### C BC ####[facility] Ywzvekwgga7086 [place] [address]Dr. Farhat Leal RBC 3.92 106/ul Critically low 4.70-6.10 [facility] Comment on above: Performed By: #### C BC ####[facility] Vqgfhladhg4284 [place] [address]Dr. Madelynlorri Elvis WBC 6.2 103/ul Normal 4.0-11.0 [facility] Comment on above: Performed By: #### C BC ####[facility] Ozqyqkajpb4597 [place] [address]Dr. Farhat Elvis MAGNESIUMon 05-08-2022 Magnesium [Mass/Vol] 1.9 mg/dL Normal 1.8-2.4 [facility] Comment on above: Performed By: #### P HOS, MG ####[facility] Ksbxxjgfgj044[address] [place], [place] [address]Dr. Farhat Elvis PHOSPHORUSon 05-08-2022 Phosphate [Mass/Vol] 4.5 mg/dL Normal 2.6-4.7 [facility] Comment on above: Performed By: #### P HOS, MG ####[facility] Dlpjrbdecy[address] [place], [place] [address]Dr. Madelynlorri Leal PROF 14(COMP METB)on 023 Albumin [Mass/Vol] 2.9 g/dL Critically low 3.4-5.0 [facility] Comment on above: Performed By: #### C MP ####[facility] Xpgpipjzbv6898 [place] [address]Dr. Farhat Leal Albumin/Globulin [Mass ratio] 0.9 {ratio} Normal [facility] Comment on above: Performed By: #### C MP ####[facility] Upikwildqh512[address] [place], [place] [address]Dr. Madelynlorri Leal ALP [Catalytic activity/Vol] 70 U/L Normal 46-116 [facility] Comment on above: Performed By: #### C MP ####[facility] Uqmrsopquu[address] [place], [place] [address]Dr. Farhat Leal ALT [Catalytic activity/Vol] 13 U/L Critically low 16-63 [facility] Comment on above: Performed By: #### C MP ####[facility] Lahobhrdez045[address] [place] [address]Dr. Madelynlorri Elvis Anion gap [Moles/Vol] 14.6 mmol/L Normal [facility] Comment on above: Performed By: #### C MP ####[facility] Hzowwaytqb9044 [place] [address]Dr. Farhat Elvis AST [Catalytic activity/Vol] 17 U/L Normal 15-37 [facility] Comment on above: Performed By: #### C MP ####[facility] Wesvfnyjqg3967[address] [place], [place] [address]Dr. Farhat Leal Bilirubin [Mass/Vol] 0.8 mg/dL Normal 0.2-1.0 [facility] Comment on above: Performed By: #### C MP ####[facility] Gvhejvqvrw[address] [place], [place] [address]Dr. Farhat Leal Calcium [Mass/Vol] 8.9 mg/dL Normal 8.5-10.1 [facility] Comment on above: Performed By: #### C MP ####[facility] Spejgvxehw245[address] [place], [place] [address]Dr. Farhat Leal Chloride [Moles/Vol] 102 mmol/L Normal 98-107 [facility] Comment on above: Performed By: #### C MP ####[facility] Knvwuccieo83[address] [place], [place] [address]Dr. Farhat Leal CO2 [Moles/Vol] 22.9 mmol/L Normal 21.0-32.0 [facility] Comment on above: Performed By: #### C MP ####[facility] Jviluwoiph885[address] [place], [place] [address]Dr. Farhat Leal Creatinine [Mass/Vol] 1.20 mg/dL Normal 0.70-1.30 [facility] Comment on above: Performed By: #### C MP ####[facility] Huvexmnnhp495[address] [place], [place] [address]Dr. Farhat Leal EGFR-AF QATARI >60 Normal >=60 [facility] Comment on above: Performed By: #### C MP ####[facility] Rcsdhkqrob24[address] [place] [address]Dr. Farhat Elvis EGFR-NON AF QATARI 59 mL/min/1.73m2 Critically low >=60 [facility] Comment on above: Performed By: #### C MP ####[facility] Ktpzyqyjqk9069 [place] [address]Dr. Madelynlorri Elvis Globulin (S) [Mass/Vol] 3.1 g/dL Normal [facility] Comment on above: Performed By: #### C MP ####[facility] Gxvrndwbzp5081 [place] [address]Dr. Madelynlorri Elvis Glucose [Mass/Vol] 447 mg/dL Critically high 74-106 [facility] Comment on above: Performed By: #### C MP ####[facility] Uvfurvnvnc5052 [place] [address]Dr. Farhat Leal Potassium [Moles/Vol] 4.5 mmol/L Normal 3.5-5.1 [facility] Comment on above: Performed By: #### C MP ####[facility] Etgixnvrob3275[address] [place], [place] [address]Dr. Farhat Elvis Protein [Mass/Vol] 6.0 g/dL Critically low 6.4-8.2 [facility] Comment on above: Performed By: #### C MP ####[facility] Zybwygbvwv346[address] [place], [place] [address]Dr. Madelynlorri Elvis Sodium [Moles/Vol] 135 mmol/L Critically low 136-145 [facility] Comment on above: Performed By: #### C MP ####[facility] Jypmucrjsg[address] [place], [place] [address]Dr. Farhat Leal Urea nitrogen [Mass/Vol] 52.0 mg/dL Critically high 7.0-18.0 [facility] Comment on above: Performed By: #### C MP ####[facility] Grivwyueag509[address] [place], [place] [address]Dr. Farhat Leal Urea nitrogen/Creatinine [Mass ratio] 43.3 mg/mg Normal [facility] Comment on above: Performed By: #### C MP ####[facility] Qpbvqogwst[address] [place], [place] [address]Dr. Farhat Leal PROTIMEon 05-06-2022 INR Coag (PPP) [Relative time] 2.25 {INR} Normal [facility] Comment on above: Performed By: #### P T ####[facility] Rjajbbpgjo[address] [place], [place] [address]Dr. Farhat Leal INR GUIDELINES SEE BELOW Normal [facility] Comment on above: Result Comment: MALINA RED INR: 2.0 - 3.0 CONDITIONS NOT LISTED BELOW 2.5 - 3.5 FOR PROSTHETIC HEART VALVE REPLACEMENT 2.5 - 3.5 RECURRENT THROMBOSIS Performed By: #### P T ####[facility] Zxlbragdoj85[address] [place], [place] [address]Dr. Farhat Leal PT Coag (PPP) [Time] 22.8 s Critically high 9.0-11.6 [facility] Comment on above: Performed By: #### P T ####[facility] Pkikfmoqlg5[address] [place], [place] [address]Dr. Farhat Leal FK506 (TACROLIMUS) WHOLE BLO ODon 05-04-2022 Tacrolimus (FK506), Blood 10.4 ng/mL Normal 2.0-20.0 [facility] Comment on above: Result Comment: Trou gh (immediately following transplant) 15.0 . Trough (steady state, 2 weeks or more after transplant): 3.0 - 8.0 . Performed by LC-MS/MS technology. Performed By: #### F K506T ####[facility] Kgwdztonku[address] [place], [place] [address]Dr. Farhat Leal CBC AUTO DIFFon 05-01-2022 BASO # 0.1 103/ul Normal 0.0-0.1 [facility] Comment on above: Performed By: #### C BC ####[facility] Hxgqkfnvmw10[address] [place], [place] [address]DrSkylar Leal Basophils/100 WBC (Bld) 0.7 % Normal 0.2-2.0 [facility] Comment on above: Performed By: #### C BC ####[facility] Xvigrfsbra70[address] [place] [address]Dr. Farhat Leal EO # 0.2 103/ul Normal 0.0-0.7 [facility] Comment on above: Performed By: #### C BC ####[facility] Kgqymxwmaf8769 [place] [address]Dr. Farhat Leal Eosinophils/100 WBC (Bld) 3.2 % Normal 0.9-7.0 [facility] Comment on above: Performed By: #### C BC ####[facility] Dhdsfeposu159[address] [place], [place] [address]Dr. Farhat Leal Erythrocyte distribution width (RBC) [Ratio] 16.4 % Critically high 11.0-15.0 [facility] Comment on above: Performed By: #### C BC ####[facility] Clgyqrriss9[address] [place], [place] [address]Dr. Farhat Leal Hematocrit (Bld) [Volume fraction] 35.1 % Critically low 42.0-54.0 [facility] Comment on above: Performed By: #### C BC ####[facility] Kyuxprhjcq[address] [place], [place] [address]Dr. Farhat Leal Hemoglobin (Bld) [Mass/Vol] 11.6 g/dL Critically low 14.0-18.0 [facility] Comment on above: Performed By: #### C BC ####[facility] Eqodncnymg[address] [place], [place] [address]Dr. Farhat Leal IG # 0.03 10e3/ul Normal 0.00-0.03 [facility] Comment on above: Performed By: #### C BC ####[facility] Umqxbthvgl[address] [place], [place] [address]Dr. Farhat Leal IG % 0.4 % Normal 0.0-0.5 [facility] Comment on above: Performed By: #### C BC ####[facility] Ohkmmwnkiv[address] [place], [place] [address]Dr. Madelynlorri Leal LYMPH # 2.4 103/ul Normal 1.2-3.8 [facility] Comment on above: Performed By: #### C BC ####[facility] Coblxxnwov17[address] [place] [address]Dr. Madelynlorri Leal Lymphocytes/100 WBC (Bld) 35.1 % Normal 20.5-60.0 [facility] Comment on above: Performed By: #### C BC ####[facility] Ayscrxqjld8571 [place] [address]Dr. Farhat Leal MANUAL DIFF REQ NO Normal [facility] Comment on above: Performed By: #### C BC ####[facility] Ioprhmahcd3997 [place] [address]Dr. Farhat Leal MCH (RBC) [Entitic mass] 29.4 pg Normal 25.9-34.0 [facility] Comment on above: Performed By: #### C BC ####[facility] Zoqqyitbcz3943 [place] [address]Dr. Farhat Leal MCHC (RBC) [Mass/Vol] 33.0 g/dL Normal 29.9-35.2 [facility] Comment on above: Performed By: #### C BC ####[facility] Iezficegat9031 [place] [address]Dr. Farhat Leal MCV (RBC) [Entitic vol] 88.9 fL Normal 80.0-94.0 [facility] Comment on above: Performed By: #### C BC ####[facility] Yrimgowkvr4445 [place] [address]Dr. Farhat Leal MONO # 0.7 103/ul Normal 0.3-0.8 [facility] Comment on above: Performed By: #### C BC ####[facility] Gkagizetme8264 [place] [address]Dr. Farhat Leal Monocytes/100 WBC (Bld) 9.6 % Normal 1.7-12.0 [facility] Comment on above: Performed By: #### C BC ####[facility] Yiqeuwqeeo0140 [place] [address]Dr. Farhat Leal NEUT # 3.5 103/ul Normal 1.4-6.5 [facility] Comment on above: Performed By: #### C BC ####[facility] Cozubuhywz1814 [place] [address]Dr. Farhat Elvis Neutrophils/100 WBC (Bld) 51.0 % Normal 43.0-75.0 [facility] Comment on above: Performed By: #### C BC ####[facility] Ikjavfpnmm2739 [place] [address]Dr. Farhat Elvis Platelet mean volume (Bld) [Entitic vol] 10.3 fL Normal 9.5-13.5 [facility] Comment on above: Performed By: #### C BC ####[facility] Hxbvshbchx3243 [place] [address]Dr. Farhat Leal PLT 184 103/ul Normal 150-450 [facility] Comment on above: Performed By: #### C BC ####[facility] Pkvrvqvrze9592 [place] [address]Dr. Farhat Leal RBC 3.95 106/ul Critically low 4.70-6.10 [facility] Comment on above: Performed By: #### C BC ####[facility] Xmjpxnufto1412 [place] [address]Dr. Farhat Leal WBC 7.0 103/ul Normal 4.0-11.0 [facility] Comment on above: Performed By: #### C BC ####[facility] Rmwgmretjx9064 [place] [address]DrSkylar Leal PROF 14(COMP METB)on 023 Albumin [Mass/Vol] 2.6 g/dL Critically low 3.4-5.0 [facility] Comment on above: Performed By: #### C MP ####[facility] Akleodlrhq1203 [place] [address]DrSkylar Leal Albumin/Globulin [Mass ratio] 0.9 {ratio} Normal [facility] Comment on above: Performed By: #### C MP ####[facility] Ydcxvqptef7758 [place] [address]DrSkylar Leal ALP [Catalytic activity/Vol] 53 U/L Normal 46-116 [facility] Comment on above: Performed By: #### C MP ####[facility] Gvzdwiylsx0252 [place] [address]Dr. Farhat Elvis ALT [Catalytic activity/Vol] 17 U/L Normal 16-63 [facility] Comment on above: Performed By: #### C MP ####[facility] Tswuafqfeb9893 [place] [address]Dr. Farhat Elvis Anion gap [Moles/Vol] 10.0 mmol/L Normal [facility] Comment on above: Performed By: #### C MP ####[facility] Mwgfjbbgod0518 [place] [address]Dr. Farhat Elvis AST [Catalytic activity/Vol] 19 U/L Normal 15-37 [facility] Comment on above: Performed By: #### C MP ####[facility] Arsezdvdda0067 [place] [address]Dr. Farhat Leal Bilirubin [Mass/Vol] 0.5 mg/dL Normal 0.2-1.0 [facility] Comment on above: Performed By: #### C MP ####[facility] Eskcdpuuqr1914 [place] [address]Dr. Farhat Elvis Calcium [Mass/Vol] 8.4 mg/dL Critically low 8.5-10.1 [facility] Comment on above: Performed By: #### C MP ####[facility] Gqjmnrudwt1969 [place] [address]Dr. Farhat Leal Chloride [Moles/Vol] 108 mmol/L Critically high 98-107 [facility] Comment on above: Performed By: #### C MP ####[facility] Odmcrcpgzm6065 [place] [address]Dr. Farhat Leal CO2 [Moles/Vol] 26.9 mmol/L Normal 21.0-32.0 [facility] Comment on above: Performed By: #### C MP ####[facility] Piimonxdcs4553 [place] [address]Dr. Farhat Leal Creatinine [Mass/Vol] 1.20 mg/dL Normal 0.70-1.30 [facility] Comment on above: Performed By: #### C MP ####[facility] Ndpjvknerq8553 [place] [address]Dr. Farhat Leal EGFR-AF QATARI >60 Normal >=60 [facility] Comment on above: Performed By: #### C MP ####[facility] Kvuoeyudmv4013 [place], [place] [address]Nz. Farhat Elvis EGFR-NON AF QATARI 59 mL/min/1.73m2 Critically low >=60 [facility] Comment on above: Performed By: #### C MP ####[facility] Yqxjegillv3659 [place] [address]Dr. Farhat Elvis Globulin (S) [Mass/Vol] 3.0 g/dL Normal [facility] Comment on above: Performed By: #### C MP ####[facility] Eixjfwldfb9440 [place] [address]Dr. Madelynlorri Elvis Glucose [Mass/Vol] 213 mg/dL Critically high 74-106 [facility] Comment on above: Performed By: #### C MP ####[facility] Odbakydczw6371 [place] [address]Dr. Farhat Elvis Potassium [Moles/Vol] 3.9 mmol/L Normal 3.5-5.1 [facility] Comment on above: Performed By: #### C MP ####[facility] Kocvckdorz7868 [place] [address]Dr. Madelynlorri Elvis Protein [Mass/Vol] 5.6 g/dL Critically low 6.4-8.2 [facility] Comment on above: Performed By: #### C MP ####[facility] Kybcqwziyx7960 [place] [address]Dr. Madelynlorri Leal Sodium [Moles/Vol] 141 mmol/L Normal 136-145 [facility] Comment on above: Performed By: #### C MP ####[facility] Ylalliojwk9764 [place] [address]Dr. Farhat Elvis Urea nitrogen [Mass/Vol] 61.0 mg/dL Critically high 7.0-18.0 [facility] Comment on above: Performed By: #### C MP ####[facility] Zxdiaoypkb247[address] [place], [place] [address]Dr. Madelynlorri Leal Urea nitrogen/Creatinine [Mass ratio] 50.8 mg/mg Normal [facility] Comment on above: Performed By: #### C MP ####[facility] Klqbydekls[address] [place], [place] [address]Dr. Farhat Leal FK506 (TACROLIMUS) WHOLE BLO ODon 04-27-2022 Tacrolimus (FK506), Blood 16.5 ng/mL Normal 2.0-20.0 [facility] Comment on above: Result Comment: Trou gh (immediately following transplant) 15.0 . Trough (steady state, 2 weeks or more after transplant): 3.0 - 8.0 . Performed by LC-MS/MS technology. Performed By: #### F K506T ####[facility] Jbxfddelwc[address] [place], [place] [address]Dr. Farhat Elvis CBC AUTO DIFFon 04-24-2022 BASO # 0.0 103/ul Normal 0.0-0.1 [facility] Comment on above: Performed By: #### C BC ####[facility] Dmvcdisbxy310[address] [place], [place] [address]Dr. Farhat Leal Basophils/100 WBC (Bld) 0.5 % Normal 0.2-2.0 [facility] Comment on above: Performed By: #### C BC ####[facility] Uoymzfkxda[address] [place], [place] [address]Dr. Madelynlorri Elvis EO # 0.2 103/ul Normal 0.0-0.7 [facility] Comment on above: Performed By: #### C BC ####[facility] Odvskkezph[address] [place], [place] [address]Dr. Farhat Leal Eosinophils/100 WBC (Bld) 3.1 % Normal 0.9-7.0 [facility] Comment on above: Performed By: #### C BC ####[facility] Bwezafbeuf1827[address] [place], [place] [address]Dr. Farhat Leal Erythrocyte distribution width (RBC) [Ratio] 16.3 % Critically high 11.0-15.0 [facility] Comment on above: Performed By: #### C BC ####[facility] Gnljcyxsvi5081 [place] [address]Dr. Farhat Leal Hematocrit (Bld) [Volume fraction] 34.0 % Critically low 42.0-54.0 [facility] Comment on above: Performed By: #### C BC ####[facility] Pqdzxqmfbm7364 [place] [address]Dr. Madelynlorri Elvis Hemoglobin (Bld) [Mass/Vol] 11.6 g/dL Critically low 14.0-18.0 [facility] Comment on above: Performed By: #### C BC ####[facility] Bsmzvfqvbc99[address] [place], [place] [address]Dr. Farhat Leal IG # 0.02 10e3/ul Normal 0.00-0.03 [facility] Comment on above: Performed By: #### C BC ####[facility] Arnjxnkmzv[address] [place], [place] [address]Dr. Farhat Leal IG % 0.4 % Normal 0.0-0.5 [facility] Comment on above: Performed By: #### C BC ####[facility] Dpxbcwcqtz[address] [place], [place] [address]DrSkylar Madelynlorri Leal LYMPH # 2.2 103/ul Normal 1.2-3.8 [facility] Comment on above: Performed By: #### C BC ####[facility] Zjropfldgy[address] [place], [place] [address]DrSkylar Leal Lymphocytes/100 WBC (Bld) 38.8 % Normal 20.5-60.0 [facility] Comment on above: Performed By: #### C BC ####[facility] Zvmamftytc[address] [place], [place] [address]DrSkylar Leal MANUAL DIFF REQ NO Normal [facility] Comment on above: Performed By: #### C BC ####[facility] Vwarcqzdcn[address] [place], [place] [address]DrSkylar Leal MCH (RBC) [Entitic mass] 30.1 pg Normal 25.9-34.0 [facility] Comment on above: Performed By: #### C BC ####[facility] Hcaptoleli3280 [place] [address]Dr. Farhat Elvis MCHC (RBC) [Mass/Vol] 34.1 g/dL Normal 29.9-35.2 [facility] Comment on above: Performed By: #### C BC ####[facility] Vnxtodqgrk5442 [place] [address]DrSkylar Leal MCV (RBC) [Entitic vol] 88.1 fL Normal 80.0-94.0 [facility] Comment on above: Performed By: #### C BC ####[facility] Zufhkjaifa[address] [place], [place] [address]DrSkylar Leal MONO # 0.6 103/ul Normal 0.3-0.8 [facility] Comment on above: Performed By: #### C BC ####[facility] L[address]qchkuzu[address] [place], [place] [address]Dr. Farhat eLal Monocytes/100 WBC (Bld) 10.8 % Normal 1.7-12.0 [facility] Comment on above: Performed By: #### C BC ####[facility] [facility] Zmeazju[address] [place], [place] [address]Dr. Farhat Leal NEUT # 2.6 103/ul Normal 1.4-6.5 [facility] Comment on above: Performed By: #### C BC ####[facility] Gmyjantydo[address] [place], [place] [address]DrSkylar Leal Neutrophils/100 WBC (Bld) 46.4 % Normal 43.0-75.0 [facility] Comment on above: Performed By: #### C BC ####[facility] B[address]fefxy[address] [place], [place] [address]DrSkylar Leal Platelet mean volume (Bld) [Entitic vol] 10.9 fL Normal 9.5-13.5 [facility] Comment on above: Performed By: #### C BC ####[facility] [address] [place], [place] [address]DrSkylar Leal PLT 159 103/ul Normal 150-450 [facility] Comment on above: Performed By: #### C BC ####[facility] Dzneveufpw040[address] [place] [address]Dr. Madelynlorri Elvis RBC 3.86 106/ul Critically low 4.70-6.10 [facility] Comment on above: Performed By: #### C BC ####[facility] Nqbaikzqpx2735 [place] [address]Dr. Farhat Leal WBC 5.6 103/ul Normal 4.0-11.0 [facility] Comment on above: Performed By: #### C BC ####[facility] Bggtzwjdbd4394 [place] [address]Dr. Farhat Leal PROTIMEon 04-24-2022 INR Coag (PPP) [Relative time] 3.23 {INR} Normal [facility] Comment on above: Performed By: #### P T ####[facility] [address] [place], [place] [address]Dr. Farhat Leal INR GUIDELINES SEE BELOW Normal [facility] Comment on above: Result Comment: MALINA RED INR: 2.0 - 3.0 CONDITIONS NOT LISTED BELOW 2.5 - 3.5 FOR PROSTHETIC HEART VALVE REPLACEMENT 2.5 - 3.5 RECURRENT THROMBOSIS Performed By: #### P T ####[facility] Ixqsfar[address] [place], [place] [address]Dr. Farhat Leal PT Coag (PPP) [Time] 32.0 s Critically high 9.0-11.6 [facility] Comment on above: Performed By: #### P T ####[facility] [address]fr[address] [place], [place] [address]Dr. Farhat Leal FK506 (TACROLIMUS) WHOLE BLO ODon 04-20-2022 Tacrolimus (FK506), Blood 13.9 ng/mL Normal 2.0-20.0 [facility] Comment on above: Result Comment: Trou gh (immediately following transplant) 15.0 . Trough (steady state, 2 weeks or more after transplant): 3.0 - 8.0 . Performed by LC-MS/MS technology. Performed By: #### F K506T ####[facility] [address]rt[address] [place], [place] [address]Dr. Farhat Leal CBC AUTO DIFFon 04-17-2022 BASO # 0.0 103/ul Normal 0.0-0.1 [facility] Comment on above: Performed By: #### C BC ####[facility] [address]zachwxgh[address] [place] [address]Dr. Farhat Leal Basophils/100 WBC (Bld) 0.4 % Normal 0.2-2.0 [facility] Comment on above: Performed By: #### C BC ####[facility] Vfkysoqcnr45[address] [place] [address]Dr. Farhat Leal EO # 0.2 103/ul Normal 0.0-0.7 [facility] Comment on above: Performed By: #### C BC ####[facility] Lpridbklvn27[address] [place] [address]Dr. Farhat Leal Eosinophils/100 WBC (Bld) 2.8 % Normal 0.9-7.0 [facility] Comment on above: Performed By: #### C BC ####[facility] [address]qmpumwnk57[address] [place] [address]Dr. Farhat Leal Erythrocyte distribution width (RBC) [Ratio] 16.1 % Critically high 11.0-15.0 [facility] Comment on above: Performed By: #### C BC ####[facility] Rrjogoqeoz5252 [place] [address]Dr. Farhat Leal Hematocrit (Bld) [Volume fraction] 35.7 % Critically low 42.0-54.0 [facility] Comment on above: Performed By: #### C BC ####[facility] Nxtyjfrowb7674 [place] [address]Dr. Farhat Leal Hemoglobin (Bld) [Mass/Vol] 12.2 g/dL Critically low 14.0-18.0 [facility] Comment on above: Performed By: #### C BC ####[facility] [address]lseawmqti[address] [place] [address]Dr. Farhat Elvis IG # 0.03 10e3/ul Normal 0.00-0.03 [facility] Comment on above: Performed By: #### C BC ####[facility] [address]tq[address]lc46[address] [place] [address]Dr. Farhat Leal IG % 0.4 % Normal 0.0-0.5 [facility] Comment on above: Performed By: #### C BC ####[facility] Arehsqcbpz8240 [place] [address]Dr. Farhat Leal LYMPH # 2.4 103/ul Normal 1.2-3.8 [facility] Comment on above: Performed By: #### C BC ####[facility] Yepyrkrssi15[address] [place] [address]Dr. Farhat Leal Lymphocytes/100 WBC (Bld) 36.1 % Normal 20.5-60.0 [facility] Comment on above: Performed By: #### C BC ####[facility] Rriazadgvm2272 [place] [address]Dr. Farhat Leal MANUAL DIFF REQ NO Normal [facility] Comment on above: Performed By: #### C BC ####[facility] Psffzscoxj9804 [place] [address]Dr. Farhat Leal MCH (RBC) [Entitic mass] 30.3 pg Normal 25.9-34.0 [facility] Comment on above: Performed By: #### C BC ####[facility] Awlabtgsmu1516 [place] [address]Dr. Farhat Leal MCHC (RBC) [Mass/Vol] 34.2 g/dL Normal 29.9-35.2 [facility] Comment on above: Performed By: #### C BC ####[facility] Nnweirnglq4904 [place] [address]Dr. Farhat Leal MCV (RBC) [Entitic vol] 88.6 fL Normal 80.0-94.0 [facility] Comment on above: Performed By: #### C BC ####[facility] Nuotwxqytl6583 [place] [address]Dr. Farhat Leal MONO # 0.7 103/ul Normal 0.3-0.8 [facility] Comment on above: Performed By: #### C BC ####[facility] Xbtdpihfit8903 [place] [address]Dr. Farhat Leal Monocytes/100 WBC (Bld) 10.1 % Normal 1.7-12.0 [facility] Comment on above: Performed By: #### C BC ####[facility] Dhrdlvridi2095 [place] [address]Dr. Farhat Leal NEUT # 3.4 103/ul Normal 1.4-6.5 [facility] Comment on above: Performed By: #### C BC ####[facility] Ajmmfanmul3108 [place] [address]Dr. Farhat Leal Neutrophils/100 WBC (Bld) 50.2 % Normal 43.0-75.0 [facility] Comment on above: Performed By: #### C BC ####[facility] Wguggtxtvv2060 [place] [address]Dr. Farhat Leal Platelet mean volume (Bld) [Entitic vol] 11.8 fL Normal 9.5-13.5 [facility] Comment on above: Performed By: #### C BC ####[facility] Yacjnkpnbg2898 [place] [address]Dr. Farhat Leal PLT 193 103/ul Normal 150-450 [facility] Comment on above: Performed By: #### C BC ####[facility] Iolksifvfn4211 [place] [address]Dr. Farhat Leal RBC 4.03 106/ul Critically low 4.70-6.10 [facility] Comment on above: Performed By: #### C BC ####[facility] Ycoguxueif3639 [place] [address]Dr. Farhat Leal WBC 6.8 103/ul Normal 4.0-11.0 [facility] Comment on above: Performed By: #### C BC ####[facility] Wcvlwgpzbc1322 [place] [address]Dr. Madelynlorri Leal PROF 14(COMP METB)on 023 Albumin [Mass/Vol] 2.9 g/dL Critically low 3.4-5.0 [facility] Comment on above: Performed By: #### C MP ####[facility] Tsossiendj3260 [place] [address]Dr. Farhat Leal Albumin/Globulin [Mass ratio] 0.9 {ratio} Normal [facility] Comment on above: Performed By: #### C MP ####[facility] Whhstgqmsr1667 [place] [address]Dr. Farhat Leal ALP [Catalytic activity/Vol] 67 U/L Normal 46-116 [facility] Comment on above: Performed By: #### C MP ####[facility] Dujcskhsui6735 [place] [address]Dr. Farhat Elvis ALT [Catalytic activity/Vol] 15 U/L Critically low 16-63 [facility] Comment on above: Performed By: #### C MP ####[facility] W[address]hrteqn[address] [place], [place] [address]Dr. Farhat Elvis Anion gap [Moles/Vol] 10.8 mmol/L Normal [facility] Comment on above: Performed By: #### C MP ####[facility] C[address]godezkn[address] [place], [place] [address]Dr. Farhat Elvis AST [Catalytic activity/Vol] 23 U/L Normal 15-37 [facility] Comment on above: Performed By: #### C MP ####[facility] Eqnwwzlskt[address] [place], [place] [address]Dr. Farhat Elvis Bilirubin [Mass/Vol] 0.6 mg/dL Normal 0.2-1.0 [facility] Comment on above: Performed By: #### C MP ####[facility] Snemtuzbkg4388 [place] [address]Dr. Farhat Elvis Calcium [Mass/Vol] 8.7 mg/dL Normal 8.5-10.1 [facility] Comment on above: Performed By: #### C MP ####[facility] T[address]olnxdz[address] [place], [place] [address]Dr. Farhat Leal Chloride [Moles/Vol] 105 mmol/L Normal 98-107 [facility] Comment on above: Performed By: #### C MP ####[facility] Plqmerxhej4032 [place] [address]Dr. Farhat Elvis CO2 [Moles/Vol] 29.5 mmol/L Normal 21.0-32.0 [facility] Comment on above: Performed By: #### C MP ####[facility] Iysghrhfpa9075 [place] [address]Dr. Farhat Elvis Creatinine [Mass/Vol] 1.37 mg/dL Critically high 0.70-1.30 [facility] Comment on above: Performed By: #### C MP ####[facility] K[address]af[address] [place], [place] [address]Dr. Farhat Elvis EGFR-AF QATARI >60 Normal >=60 [facility] Comment on above: Performed By: #### C MP ####[facility] [address]nowmfqv[address] [place], [place] [address]Dr. Farhat Leal EGFR-NON AF QATARI 50 mL/min/1.73m2 Critically low >=60 [facility] Comment on above: Performed By: #### C MP ####[facility] Slmapdsdtl[address] [place], [place] [address]Dr. Madelynlorri Leal Globulin (S) [Mass/Vol] 3.1 g/dL Normal [facility] Comment on above: Performed By: #### C MP ####[facility] Ksrgdmqbgm[address] [place], [place] [address]Dr. Farhat Leal Glucose [Mass/Vol] 203 mg/dL Critically high 74-106 T [facility] Comment on above: Performed By: #### C MP ####[facility] [address]hftfh[address] [place], [place] [address]Dr. Madelynlorri Leal Potassium [Moles/Vol] 4.3 mmol/L Normal 3.5-5.1 [facility] Comment on above: Performed By: #### C MP ####[facility] Ragemseskb[address] [place], [place] [address]Dr. Farhat Leal Protein [Mass/Vol] 6.0 g/dL Critically low 6.4-8.2 [facility] Comment on above: Performed By: #### C MP ####[facility] Eyel[address]uydr[address] [place], [place] [address]Dr. Faraht Leal Sodium [Moles/Vol] 141 mmol/L Normal 136-145 [facility] Comment on above: Performed By: #### C MP ####[facility] Ewrdzeiryr49[address] [place] [address]Dr. Farhat Leal Urea nitrogen [Mass/Vol] 65.0 mg/dL Critically high 7.0-18.0 [facility] Comment on above: Performed By: #### C MP ####[facility] Mcvtunxfci5264 [place] [address]Dr. Farhat Leal Urea nitrogen/Creatinine [Mass ratio] 47.4 mg/mg Normal [facility] Comment on above: Performed By: #### C MP ####[facility] Odymlrglhp4543 [place] [address]Dr. Farhat Leal PROTIMEon 04-15-2022 INR Coag (PPP) [Relative time] 3.88 {INR} Normal [facility] Comment on above: Performed By: #### P T ####[facility] Wxecwvsovi8757 [place] [address]Dr. Farhat Leal INR GUIDELINES SEE BELOW Normal [facility] Comment on above: Result Comment: MALINA RED INR: 2.0 - 3.0 CONDITIONS NOT LISTED BELOW 2.5 - 3.5 FOR PROSTHETIC HEART VALVE REPLACEMENT 2.5 - 3.5 RECURRENT THROMBOSIS Performed By: #### P T ####[facility] [address] [place], [place] [address]Dr. Farhat Leal PT Coag (PPP) [Time] 38.1 s Critically high 9.0-11.6 [facility] Comment on above: Performed By: #### P T ####[facility] Ct[address]omcbed[address] [place], [place] [address]Dr. Farhat Leal Glucose Glucometer (BldC) [M ass/Vol]Ordered By: Sadia Aguilar on 04-14-2022 Glucose [Mass/Vol] 162 mg/dL [facility] Comment on above: Random Glucose Refer ence Range is dependent on time and content of last meal. Glucose of more than 200 mg/dL in a nonstressed, ambulatory subject supports the diagnosis of Diabetes Mellitus. Glucose Poct Glucometerson 0 04-14-2022 Commemt1 Glu2: Cleaned Meter Normal [facility] Comment on above: Result Comment: PERF ORMED BY: [facility] [address] PATHOLOGIST GALLEY BOY JOSE F ELLIOTT M.D. Performed By: #### G LULS #### Point of Care testing , Glucose [Mass/Vol] 162 mg/dL Normal [facility] Comment on above: Result Comment: [facility] Glucose Reference Range is dependent on time and content of last meal. Glucose of more than 200 mg/dL in a nonstressed, ambulatory subject supports the diagnosis of Diabetes Mellitus. Performed By: #### G LULS #### Point of Care testing , No Panel InformationOrdered By: Sadia Aguilar on 04-14-2022 Bedside Glucose Comment Glu2: cleaned meter [facility] MAGNESIUMon 04-13-2022 Magnesium [Mass/Vol] 1.7 mg/dL Critically low 1.8-2.4 [facility] Comment on above: Performed By: #### M Anais PHOS ####[facility] Eroyktzqrb[address] [place] [address]Dr. Farhat Leal PHOSPHORUSon 04-13-2022 Phosphate [Mass/Vol] 4.8 mg/dL Critically high 2.6-4.7 [facility] Comment on above: Performed By: #### M Anais PHOS ####[facility] [address]pabmxyoic8[address] [place] [address]Dr. Farhat Leal PROTIMEon 04-13-2022 INR Coag (PPP) [Relative time] 3.16 {INR} Normal [facility] Comment on above: Performed By: #### P T ####[facility] Nohsoejeqx9380 [place] [address]Dr. Farhat Leal INR GUIDELINES SEE BELOW Normal [facility] Comment on above: Result Comment: MALINA RED INR: 2.0 - 3.0 CONDITIONS NOT LISTED BELOW 2.5 - 3.5 FOR PROSTHETIC HEART VALVE REPLACEMENT 2.5 - 3.5 RECURRENT THROMBOSIS Performed By: #### P T ####[facility] Sdqgvwqlfj7592 [place] [address]Dr. Farhat Leal PT Coag (PPP) [Time] 31.4 s Critically high 9.0-11.6 [facility] Comment on above: Performed By: #### P T ####[facility] Wporovbnry3419 [place] [address]Dr. Farhat Leal MAGNESIUMon 03-11-2022 Magnesium [Mass/Vol] 1.6 mg/dL Critically low 1.8-2.4 [facility] Comment on above: Performed By: #### M G, PHOS ####[facility] Xwctdbzvha97[address] [place] [address]Dr. Farhat Leal PHOSPHORUSon 03-11-2022 Phosphate [Mass/Vol] 5.3 mg/dL Critically high 2.6-4.7 [facility] Comment on above: Performed By: #### M Anais, PHOS ####[facility] L[address] [place], [place] [address]Dr. Farhat Leal CNOVon 02-26-2022 CNOV Office Visit (VASSMN ) ALEX ALMONTE Kate ([id number]) 1945 M TRN Date Time Provider Department 02/26/22 3:00 PM HINA PETERSON During your visit today, we recorded the following information about you: Temperature Pulse Blood pressure 96.6 degrees 75/minute 88/75 Hina Peterson MD, MD 02/26/2022 4:31 PM Signed [facility] [place] [facility]GERY OUTPATIENT VISIT DATE [...] his postop visit. He has been in [facility] since then and has been recovering from his acute on chronic congestive heart failure. His wound has largely been healing without any issues and the maxwell and sutures were removed at the nursing facility. He comes here with a lateral wound eschar. He denies any fevers, chills, or any drainage. He is on anticoagulation. 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 Patient on mycophenolate mofetil , cellcept and prednisone Mixed hyperlipidemia due to type 2 diabetes mellitus ([facility]) 11/29/2021 Osteomyelitis ([facility]) 11/29/2021 Paroxysmal atrial fibrillation ([facility]) Renal transplant, status post SA node dysfunction ([facility]) s/p pacemaker Type 2 diabetes mellitus with diabetic neuropathy, with long-term current use of insulin ([facility]) 02/24/2002 PAST SURGICAL HISTORY Procedure Laterality Date [...] by mouth daily with lunch. [employer] [place] with lunch aspirin, enteric coated (ASPIRIN, ENTERIC COATED) 81 mg EC tablet Take 1 tablet by (more content not included)... [facility]-25-[facility]22 INR Coag (PPP) [Relative time] 1.31 {INR} Normal [facility] Comment on above: Performed By: #### P T ####[facility] [address]tjejclp40[address] [place] [id number] Leal INR GUIDELINES SEE BELOW Normal [facility] Comment on above: Result Comment: MALINA RED INR: 2.0 - 3.0 CONDITIONS NOT LISTED BELOW 2.5 - 3.5 FOR PROSTHETIC HEART VALVE REPLACEMENT 2.5 - 3.5 RECURRENT THROMBOSIS Performed By: #### P T ####[facility] Gsmhuvvipm[address] [place] [address]DrSkylar Leal PT Coag (PPP) [Time] 13.7 s Critically high 9.0-11.6 [facility] Comment on above: Performed By: #### P T ####[facility] S[address]ryzzwcj4675 [place] [address]DrSkylar Leal CNPRosalie 02-19-2022 CNPN Telephone (TXCTGL) ALEX ALMONTE ([id number]) 1945 M TRN Date Time Provider Department [...] by mouth daily with lunch. 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 DIABETES UNCOMPL ADULT-UNCONTRLLED [[id number]] 02/24/2002 KIDNEY TRANSPLANT STATUS [Z94.0] 09/07/2003 PROPHYLACTIC IMMUNOTHERAPY [Z29.8] 07/30/2006 PRISON STEROIDS [[id number]] 07/30/2006 VITAMIN D DEFICIENCY NOS [E55.9] 09/07/2008 [...] perfusion [R09.89] 09/30/2021 PAD (peripheral artery disease) ([facility]) [I73.9] 09/26/2021 Osteomyelitis ([facility]) [M86.9] 11/29/2021 Class 1 obesity due to excess calories with ser*11/29/2021 Mixed hyperlipidemia due to type 2 diabetes myles*11/29/2021 Type 2 diabetes mellitus with diabetic peripher*11/29/2021 Atherosclerosis of lummi artery of extremity w*11/29/2021 Malnutrition of moderate degree ([facility]) [E44.0] 12/01/2021 Dermatitis associated with moisture [L30.8] 12/04/2021 Encounter Status:Closed by AUGUSTA MEDRANO on 02/19/22 [facility] Sonya 02-18-2022 CNPN Telephone (PODCCP) ALEX ALMONTE ([id number]) 1945 M TRN Date Time Provider Department 02/18/22 DEVON MOREIRA PODREAL During your visit today, we recorded the following information about you: Yumiko Camelia 02/18/2022 3:16 PM Signed Reason for call: Mr. Almonte would like to request a sooner appointment with Dr. Peterson than 04/13/2022. Contact Name (if not the patient) Alex's nurse Home and cell number(Ask for Alex's nurse) [phone] Diagnosis 4 mo f/u wound check Best [...] by mouth daily with lunch. 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 DIABETES UNCOMPL ADULT-UNCONTRLLED [[id number]] 02/24/2002 KIDNEY TRANSPLANT STATUS [Z94.0] 09/07/2003 PROPHYLACTIC IMMUNOTHERAPY [Z29.8] 07/30/2006 TEAM MEMBER STEROIDS [[id number]] 07/30/2006 VITAMIN D DEFICIENCY NOS [E55.9] 09/07/2008 [...] perfusion [R09.89] 09/30/2021 PAD (peripheral artery disease) ([facility]) [I73.9] 09/26/2021 Osteomyelitis (HCC) [M86.9] 11/29/2021 Class 1 obesity due to excess calories with ser*11/29/2021 Mixed hyperlipidemia due to type 2 diabetes myles*11/29/2021 Type 2 diabetes mellitus with diabetic peripher*11/29/2021 Atherosclerosis of lummi artery of extremity w*11/29/2021 Malnutrition of moderate degree (HCC) [E44.0] 12/01/2021 Dermatitis associated with moisture [L30.8] 12/04/2021 Encounter Status:Closed by CHEASTY (more content not included)... Normal [facility] CNOVon 02-05-2022 CNOV Office Visit (TXCTGL ) ZEV ALMONTEJESÚS Kate ([id number]) 1945 M TRN Date Time Provider Department 02/05/22 8:20 AM [facility] TXCTGL During your visit today, we recorded the following information about you: Temperature Pulse Blood pressure 96.7 degrees 79/minute 72/42 Asia Pike MD 02/05/2022 9:38 AM Signed [facility] [place] Transplant Follow up Portions of this note [...] and snacks patient declined. Indra scale at [facility]: 166.2 lbs per patient. Bed sore on coccyx causing discomfort. Being changed regularly at [facility]- reported to be smaller around but still as deep. Patient not very up to date with medications. Patient brought paperwork from [facility] with all medications being received. Patient unsure if they have been drawing labs regularly. Last Tac from 01/19: 12.9 and K 5.9. In need of current labs. Lab orders will be sent with patient and follows as below: [facility] Trans[facility] Standing Lab Orders [id number] [facility] [address] [place], [place] [address] February 05, 2022 Aelx Almonte 1945 [id number] STANDARD TESTING: Diagnosis Codes: Z94.0 Kidney Transplant [...] AT YOUR LABORATORY FACILITY AND FAX TO [phone]. PLEASE CALL [phone]. Provider: Dr. Pike Current Outpatient Medications Medication [...] (more content not included)... Normal [facility] PROTEIN CREATININE RATIOon 1 04-08-2021 Protein/Creatinine (U) [Mass ratio] 0.10 mg/mg <0.15 mg/mg [facility] PROTIMEon 02-05-2022 INR Coag (PPP) [Relative time] 2.90 {INR} Normal [facility] Comment on above: Performed By: #### P T ####[facility] [address] [place], [place] [address]St. Farhat Leal INR GUIDELINES SEE BELOW Normal [facility] Comment on above: Result Comment: MALINA RED INR: 2.0 - 3.0 CONDITIONS NOT LISTED BELOW 2.5 - 3.5 FOR PROSTHETIC HEART VALVE REPLACEMENT 2.5 - 3.5 RECURRENT THROMBOSIS Performed By: #### P T ####[facility] [address] [place], [place] [address]Rl. Farhat Leal PT Coag (PPP) [Time] 29.2 s Critically high 9.0-11.6 [facility] Comment on above: Performed By: #### P T ####[facility] Kbmwkjcevs1787 [place] [id number]. Farhat Leal Prot/Creat Uron 02-05-2022 Protein/Creatinine (U) [Mass ratio] 0.10 mg/mg Normal <0.15 [facility] Comment on above: Order Comment: Speci men Type: URINE SPECIMENOrdering Facility: [facility] Address: [address] [place] [address] Result Comment: Adul t Proteinuria Categories: <0.15 mg/mg is considered normal to mildly increased 0.15 - 0.50 mg/mg is considered moderately increased >0.50 mg/mg is considered severely increased KDIGO. (2013). KDIGO 2012 Clinical Practice Guideline for the Evaluation and Management of Chronic Kidney Disease. Official Journal of the International Society of Nephrology, 3(1), 1-150. Performed By: #### 2 890-2 ####[facility] LABCLIA [id number] [place] [address] [place] Protein/Creatinine (U) [Mass ratio]on 02-05-2022 Creatinine (U) [Mass/Vol] 86.9 mg/dL 20.0 - 300.0 mg/dL [facility] Protein (U) [Mass/Vol] 9 mg/dL 0 - 20 mg/dL [facility] Creatinine (U) [Mass/Vol] 86.9 mg/dL Normal 20.0-300.0 [facility] Comment on above: Order Comment: Speci men Type: URINE SPECIMENOrdering Facility: [facility] Address: [address] Performed By: #### 2 890-2 ####[facility] [id number] [place] [address] [place] Protein (U) [Mass/Vol] 9 mg/dL Normal 0-20 Cl [facility] Comment on above: Order Comment: Speci men Type: URINE SPECIMENOrdering Facility: [facility] Address: [address] [address] Performed By: #### 2 890-2 ####[facility] LABIA [id number] [place] [address] [place] URINALYSIS, DIPSTICK ONLYon 02-05-2022 Bilirubin Ql (U) Negative Normal Negative [facility] Comment on above: Order Comment: Speci men Type: URINE SPECIMEN Ordering Facility: [facility] Address: [address] Performed By: #### U A #### [facility] CLIA [id number] [address] [place] [address] [place] Clarity (Unsp spec) Clear Normal Clear [facility] Comment on above: Order Comment: Speci men Type: URINE SPECIMEN Ordering Facility: [facility] Address: [address] Performed By: #### U A #### [facility] CLIA [id number] [address] [place] [address] [place] Color (U) Yellow Normal Yellow [facility] Comment on above: Order Comment: Speci men Type: URINE SPECIMEN Ordering Facility: [facility] Address: [address] Performed By: #### U A #### [facility] CLIA [id number] [address] [place] [address] [place] Glucose Test strip (U) [Mass/Vol] 3+ Abnormal Trace, Negative [facility] Comment on above: Order Comment: Speci men Type: URINE SPECIMEN Ordering Facility: [facility] Address: [address] [address] Performed By: #### U A #### [facility] CLIA [id number] [address] [place] [address] [place] Hemoglobin Ql (U) Negative Normal Negative, Trace [facility] Comment on above: Order Comment: Speci men Type: URINE SPECIMEN Ordering Facility: [facility] Address: [address] [address] Performed By: #### U A #### [facility] CLIA [id number] [address] [place] [address] [place] Ketones Ql (U) Trace Normal Negative, Trace [facility] Comment on above: Order Comment: Speci men Type: URINE SPECIMEN Ordering Facility[facility] Address: [address] Performed By: #### U A #### [facility] CLIA [id number] [address] [place] [address] [place] Leukocyte esterase Test strip Ql (U) Negative Normal Negative, 25 Loraine/mL [facility] Comment on above: Order Comment: Speci men Type: URINE SPECIMEN Ordering Facility: [facility] Address: [address] Performed By: #### U A #### [facility] CLIA [id number] [address] [place] [address] [place] Nitrite Ql (U) Negative Normal Negative [facility] Comment on above: Order Comment: Speci men Type: URINE SPECIMEN Ordering Facility: [facility] Address: [address] [address] Performed By: #### U A #### [facility] CLIA [id number] [address] [place] [address] [place] pH (U) 5.5 [pH] Normal 5.0-8.0 [facility] Comment on above: Order Comment: Speci men Type: URINE SPECIMEN Ordering Facility: [facility] Address: [address] [place] [address] Performed By: #### U A #### [facility] [place] [id number] [address] [place] [address] [place] Protein (U) [Mass/Vol] Negative Normal Trace , Negative [facility] Comment on above: Order Comment: Speci men Type: URINE SPECIMEN Ordering Facility: [facility] Address: [address] [place] [address] Performed By: #### U A #### [facility] [place] [id number] [address] [place] [address] [place] Specific gravity (U) [Rel density] 1.014 Normal 1.005-1.030 [facility] Comment on above: Order Comment: Speci men Type: URINE SPECIMEN Ordering Facility: [facility] Address: [address] [place] [address] Performed By: #### U A #### [facility] IA [id number] [address] [place] [address] [place] Urobilinogen Ql (U) 1+ Abnormal Negative [facility] Comment on above: Order Comment: Speci men Type: URINE SPECIMEN Ordering Facility: [facility] Address: [address] [place] [address] Performed By: #### U A #### [facility] [place] [id number] [address] [place] [address] [place] Bilirubin Ql (U) Negative Negative [facility] Clarity (Unsp spec) Clear Clear [facility] Color (U) Yellow Yellow [facility] Glucose Test strip (U) [Mass/Vol] 3+ Abnormal Trace, Negative [facility] Hemoglobin Ql (U) Negative Negative, Trace [facility] Ketones Ql (U) Trace Negative, Trace [facility] Leukocyte esterase Test strip Ql (U) Negative Negative, 25 Loraine/mL [facility] Nitrite Ql (U) Negative Negative [facility] pH (U) 5.5 [pH] 5.0 - 8.0 [facility] Protein (U) [Mass/Vol] Negative Trace , Negative [facility] Specific gravity (U) [Rel density] 1.014 1.005 - 1.030 [facility] Urobilinogen Ql (U) 1+ Abnormal Negative [facility] FK506 (TACROLIMUS) WHOLE BLO ODon 01-29-2022 Tacrolimus (FK506), Blood 11.1 ng/mL Normal 2.0-20.0 [facility] Comment on above: Result Comment: Trou gh (immediately following transplant) 15.0 . Trough (steady state, 2 weeks or more after transplant): 3.0 - 8.0 . Performed by LC-MS/MS technology. Performed By: #### F K506T ####[facility] [address] [place], [place] [address]Dr. Farhat Leal PHOSPHORUSon 01-26-2022 Phosphate [Mass/Vol] 4.1 mg/dL Normal 2.6-4.7 [facility] Comment on above: Performed By: #### C HENRI MARROQUIN ####[facility] Hbuzoksvos[address] [place], [place] [address]DrSkylar Leal PROF 14(COMP METB)on 022 Albumin [Mass/Vol] 2.1 g/dL Critically low 3.4-5.0 [facility] Comment on above: Performed By: #### C HENRI MARROQUIN ####[facility] [address] [place] [address]Dr. Farhat Leal Albumin/Globulin [Mass ratio] 0.6 {ratio} Normal [facility] Comment on above: Performed By: #### C HENRI MARROQUIN ####[facility] [address] [place], [place] [address]Dr. Farhat Leal ALP [Catalytic activity/Vol] 89 U/L Normal 46-116 [facility] Comment on above: Performed By: #### C ANA MARROQUINS ####[facility] [address] [place] [address]Dr. Farhat Leal ALT [Catalytic activity/Vol] 27 U/L Normal 16-63 [facility] Comment on above: Performed By: #### C MP, PHOS ####[facility] [address] [place] [address]Dr. Farhat Leal Anion gap [Moles/Vol] 12.3 mmol/L Normal [facility] Comment on above: Performed By: #### C MP, PHOS ####[facility] [address] [place] [address]Dr. Farhat Leal AST [Catalytic activity/Vol] 53 U/L Critically high 15-37 [facility] Comment on above: Performed By: #### C CARA, PHOS ####[facility] V[address]zcz[address] [place], [place] [address]Dr. Farhat Leal Bilirubin [Mass/Vol] 0.6 mg/dL Normal 0.2-1.0 [facility] Comment on above: Performed By: #### C CARA, PHOS ####[facility] Ekuadgvkfv[address] [place], [place] [address]Dr. Farhat Leal Calcium [Mass/Vol] 8.0 mg/dL Critically low 8.5-10.1 [facility] Comment on above: Performed By: #### C CARA, PHOS ####[facility] Qcbwxedyma[address] [place], [place] [address]Dr. Farhat Leal Chloride [Moles/Vol] 97 mmol/L Critically low 98-107 [facility] Comment on above: Performed By: #### C MP, PHOS ####[facility] Rogcbdelvf[address] [place], [place] [address]Dr. Farhat Leal CO2 [Moles/Vol] 26.6 mmol/L Normal 21.0-32.0 [facility] Comment on above: Performed By: #### C MP, PHOS ####[facility] Fi[address]bgzy[address] [place], [place] [address]Dr. Farhat Leal Creatinine [Mass/Vol] 1.03 mg/dL Normal 0.70-1.30 [facility] Comment on above: Performed By: #### C MP, PHOS ####[facility] [address] [place] [address]Dr. Farhat Leal EGFR-AF QATARI >60 Normal >=60 [facility] Comment on above: Performed By: #### C MP, PHOS ####[facility] [address] [place] [address]Dr. Farhat Leal EGFR-NON AF QATARI >60 Normal >=60 [facility] Comment on above: Performed By: #### C MP, PHOS ####[facility] Gxyehuzqft960[address] [place], [place] [address]Dr. Farhat Leal Globulin (S) [Mass/Vol] 3.7 g/dL Normal [facility] Comment on above: Performed By: #### C MP, PHOS ####[facility] Xkzxqqqdhg[address] [place], [place] [address]Dr. Farhat Leal Glucose [Mass/Vol] 287 mg/dL Critically high 74-106 [facility] Comment on above: Performed By: #### C CARA, PHOS ####[facility] Kdnbvktnmm[address] [place], [place] [address]Dr. Farhat Leal Potassium [Moles/Vol] 3.9 mmol/L Normal 3.5-5.1 [facility] Comment on above: Performed By: #### C MP, PHOS ####[facility] Ydzishrysc[address] [place], [place] [address]Dr. Farhat Leal Protein [Mass/Vol] 5.8 g/dL Critically low 6.4-8.2 [facility] Comment on above: Performed By: #### C MP, PHOS ####[facility] Igraqruvfm[address] [place], [place] [address]Dr. Farhat Leal Sodium [Moles/Vol] 132 mmol/L Critically low 136-145 [facility] Comment on above: Performed By: #### C MP, PHOS ####[facility] [address]xy[address]cmadm[address] [place], [place] [address]Dr. aFrhat Leal Urea nitrogen [Mass/Vol] 23.0 mg/dL Critically high 7.0-18.0 [facility] Comment on above: Performed By: #### C HENRI MARROQUIN ####[facility] [address] [place] [address]Dr. Farhat Elvis Urea nitrogen/Creatinine [Mass ratio] 22.3 mg/mg Normal [facility] Comment on above: Performed By: #### C HENRI MARROQUIN ####[facility] [address] [place] [address]Dr. Farhat Leal FK506 (TACROLIMUS) WHOLE BLO ODon 01-21-2022 Tacrolimus (FK506), Blood 12.2 ng/mL Normal 2.0-20.0 [facility] Comment on above: Result Comment: Trou gh (immediately following transplant) 15.0 . Trough (steady state, 2 weeks or more after transplant): 3.0 - 8.0 . Performed by LC-MS/MS technology. Performed By: #### F K506T ####[facility] [address] [place] [address]Dr. Farhat Leal ACID FAST SMEAR AND CXon Acid Fast Culture Negative Normal [facility] Comment on above: Result Comment: No a abdiel fast bacilli isolated after 6 weeks. Performed By: #### A FB ####[facility] [address] [place] [phone]. Madelynlorri Leal Acid Fast Smear Negative Normal [facility] Comment on above: Performed By: #### A FB ####[facility] [address] [place], [place] [address]Dr. Farhat Leal [employer] Specimen Processing Tissue Grinding Normal [facility] Comment on above: Performed By: #### A FB ####[facility] [address] [place] [phone]. Farhat Hassan 01-20-2022 DIAMANTEN Telephone (KIMBERLY) ALEX [place]MONTE ([id number]) 1945 M TRN Date Time Provider Department 01/20/22 VAN OLIVAREZ During your visit today, we recorded the following information about you: Van Olivarez APRN.CNP 01/20/2022 1:14 PM Signed Labs noted from yesterday. Pt is currently residing at [facility], I spoke with the Nurse, the [...] by mouth daily with lunch. 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(COMP METB)on 022 Albumin [Mass/Vol] 1.9 g/dL Critically low 3.4-5.0 [facility] Comment on above: Performed By: #### C MP ####[facility] [address] [place] [phone] Leal Albumin/Globulin [Mass ratio] 0.5 {ratio} Normal [facility] Comment on above: Performed By: #### C MP ####[facility] [address] [place] [phone] Leal ALP [Catalytic activity/Vol] 78 U/L Normal 46-116 [facility] Comment on above: Performed By: #### C MP ####[facility] [address]cla[address] [place] [address]DrSkylar Leal ALT [Catalytic activity/Vol] 22 U/L Normal 16-63 [facility] Comment on above: Performed By: #### C MP ####[facility] [address] [place] [phone]. Farhat Leal Anion gap [Moles/Vol] 8.0 mmol/L Normal [facility] Comment on above: Performed By: #### C MP ####[facility] [address]fs[address]koe[address] [place] [phone]. Farhat Leal AST [Catalytic activity/Vol] 92 U/L Critically high 15-37 [facility] Comment on above: Performed By: #### C MP ####[facility] [address]wk[address] [place] [phone]. Farhat Elvis Bilirubin [Mass/Vol] 0.7 mg/dL Normal 0.2-1.0 [facility] Comment on above: Performed By: #### C MP ####[facility] [address] [place] [address]Dr. Farhat Leal Calcium [Mass/Vol] 7.8 mg/dL Critically low 8.5-10.1 Th [facility] Comment on above: Performed By: #### C MP ####[facility] [address]yxsyjh[address] [place] [address]Dr. Madelynlorri Leal Chloride [Moles/Vol] 99 mmol/L Normal 98-107 [facility] Comment on above: Performed By: #### C MP ####[facility] Abs[address]vyyrhp[address] [place] [phone]. Madelynlorri Elvis CO2 [Moles/Vol] 30.9 mmol/L Normal 21.0-32.0 [facility] Comment on above: Performed By: #### C MP ####[facility] [address]dtchf[address] [place] [phone]. Farhat Elvis Creatinine [Mass/Vol] 0.95 mg/dL Normal 0.70-1.30 [facility] Comment on above: Performed By: #### C MP ####[facility] Oxmwolluep[address] [place] [phone]. Farhat Leal EGFR-AF QATARI >60 Normal >=60 [facility] Comment on above: Performed By: #### C MP ####[facility] S[address]ufld[address] [place] [phone]. Farhat Leal EGFR-NON AF QATARI >60 Normal >=60 [facility] Comment on above: Performed By: #### C MP ####[facility] Y[address]gdnrws[address] [place] [phone]. Farhat Leal Globulin (S) [Mass/Vol] 3.9 g/dL Normal [facility] Comment on above: Performed By: #### C MP ####[facility] [address]ja[address] [place] [address]Dr. Farhat Leal Glucose [Mass/Vol] 124 mg/dL Critically high 74-106 [facility] Comment on above: Performed By: #### C MP ####[facility] [address]uxzytbmpk[address] [place] [address]Dr. Farhat Leal Potassium [Moles/Vol] 5.9 mmol/L Critically high 3.5-5.1 [facility] Comment on above: Performed By: #### C MP ####[facility] [address]wpcux[address] [place], [place] [address]Dr. Farhat Leal Protein [Mass/Vol] 5.8 g/dL Critically low 6.4-8.2 [facility] Comment on above: Performed By: #### C MP ####[facility] Lxolfpbpsu[address] [place], [place] [address]Dr. Farhat Leal Sodium [Moles/Vol] 132 mmol/L Critically low 136-145 [facility] Comment on above: Performed By: #### C MP ####[facility] W[address]intulde[address] [place], [place] [address]Dr. Farhat Leal Urea nitrogen [Mass/Vol] 18.0 mg/dL Normal 7.0-18.0 [facility] Comment on above: Performed By: #### C MP ####[facility] Zirtfrcktk[address] [place], [place] [address]Dr. Farhat Leal Urea nitrogen/Creatinine [Mass ratio] 18.9 mg/mg Normal [facility] Comment on above: Performed By: #### C MP ####[facility] I[address]jstb[address] [place] [phone]. Farhat Leal INR (POC)on 01-12-2022 INR Coag (PPP) [Relative time] 2.6 {INR} High 0.8 - 1.2 [facility] Internal Quality Check Acceptable Cl [facility] ACID FAST SMEAR AND CXon Acid Fast Culture Negative Normal [facility] Comment on above: Result Comment: No a abdiel fast bacilli isolated after 6 weeks. Performed By: #### A FB ####[facility] Fnaawmuumr[address] [place], [place] [address]Dr. Farhat Leal Acid Fast Smear Negative Normal [facility] Comment on above: Performed By: #### A FB ####[facility] Uofwdvaatf[address] [place], [place] [address]Dr. Farhat Leal [employer] Specimen Processing Direct Inoculation Normal [facility] Comment on above: Performed By: #### A FB ####[facility] Sjhumcvnxq[address] [place], [place] [address]Dr. Farhat Leal ACID FAST SMEAR AND CXon Acid Fast Culture Negative Normal [facility] Comment on above: Result Comment: No a abdiel fast bacilli isolated after 6 weeks. Performed By: #### A FB ####[facility] [address]mbvtmnjlx[address] [place], [place] [address]Dr. Farhat Leal Acid Fast Smear Negative Normal [facility] Comment on above: Performed By: #### A FB ####[facility] Rywankkkgq[address] [place], [place] [address]Dr. Farhat Leal [employer] Specimen Processing Tissue Grinding Normal [facility] Comment on above: Performed By: #### A FB ####[facility] Yzyvunzioy[address] [place], [place] [address]Dr. Farhat Leal FUNGAL CULTUREon 01-02-2022 Fungus (Mycology) Culture Final report Normal [facility] Comment on above: Performed By: #### C XFUN ####[facility] Ztyjqeghmk[address] [place], [place] [address]Dr. Farhat Leal Fungus Stain Final report Normal [facility] Comment on above: Performed By: #### C XFUN ####[facility] [address] [place] [address]. Madelynlorri Leal Result 1 Comment Normal [facility] Comment on above: Result Comment: ANNI/ Calcofluor preparation: no fungus observed. Performed By: #### C XFUN ####[facility] [address]ix[address] [place], [place] [address]Dr. Farhat Leal Result Comment: No y east or mold isolated after 4 weeks. FK506 (TACROLIMUS) WHOLE BLO ODon 12-31-2021 Tacrolimus (FK506), Blood 7.7 ng/mL Normal 2.0-20.0 [facility] Comment on above: Result Comment: Trou gh (immediately following transplant) 15.0 . Trough (steady state, 2 weeks or more after transplant): 3.0 - 8.0 . Performed by LC-MS/MS technology. Performed By: #### F K506T ####[facility] [address]swxuptayo[address] [place], [place] [address]Dr. Farhat Leal HEMOGRAM AND PLATELon 2021 Hematocrit (Bld) [Volume fraction] 27.1 % Critically low 42.0-54.0 [facility] Comment on above: Performed By: #### H H ####[facility] [address] [place] [address]. Farhat Leal Hemoglobin (Bld) [Mass/Vol] 8.7 g/dL Critically low 14.0-18.0 [facility] Comment on above: Performed By: #### H H ####[facility] [address]vf[address] [place], [place] [address]Dr. Farhat Leal MCH (RBC) [Entitic mass] 30.3 pg Normal 25.9-34.0 [facility] Comment on above: Performed By: #### H H ####[facility] [address] [place] [address]. Farhat Leal MCHC (RBC) [Mass/Vol] 32.1 g/dL Normal 29.9-35.2 [facility] Comment on above: Performed By: #### H H ####[facility] [address] [place] [phone]. Farhat Leal MCV (RBC) [Entitic vol] 94.4 fL Critically high 80.0-94.0 [facility] Comment on above: Performed By: #### H H ####[facility] [address] [place] [address]Dr. Farhat Leal PLT 355 103/ul Normal 150-450 [facility] Comment on above: Performed By: #### H H ####[facility] [address] [place] [phone]. Farhat Leal RBC 2.87 106/ul Critically low 4.70-6.10 [facility] Comment on above: Performed By: #### H H ####[facility] [address] [place] [address]Dr. Farhat Leal WBC 6.0 103/ul Normal 4.0-11.0 [facility] Comment on above: Performed By: #### H H ####[facility] [address] [place] [address]Dr. Farhat Leal PHOSPHORUSon 12-29-2021 Phosphate [Mass/Vol] 2.5 mg/dL Critically low 2.6-4.7 [facility] Comment on above: Performed By: #### P HOS, CMP ####[facility] X[address] [place] [address]Dr. Farhat Elvis PROF 14(COMP METB)on 022 Albumin [Mass/Vol] 1.7 g/dL Critically low 3.4-5.0 [facility] Comment on above: Performed By: #### P HOS, CMP ####[facility] Tcl[address]jb[address]ryy[address] [place] [address]Dr. Farhat Leal Albumin/Globulin [Mass ratio] 0.5 {ratio} Normal [facility] Comment on above: Performed By: #### P HOS, CMP ####[facility] Z[address]killcol[address] [place] [address]Dr. Farhat Leal ALP [Catalytic activity/Vol] 78 U/L Normal 46-116 [facility] Comment on above: Performed By: #### P HOS, CMP ####[facility] I[address]zrhrrv[address] [place] [address]Dr. Farhat Leal ALT [Catalytic activity/Vol] 12 U/L Critically low 16-63 [facility] Comment on above: Performed By: #### P HOS, CMP ####[facility] Dim[address]zfnm[address] [place] [address]Dr. Farhat Leal Anion gap [Moles/Vol] 5.1 mmol/L Normal [facility] Comment on above: Performed By: #### P HOS, CMP ####[facility] [address]we[address] [place], [place] [address]Dr. Farhat Leal AST [Catalytic activity/Vol] 22 U/L Normal 15-37 [facility] Comment on above: Performed By: #### P HOS, CMP ####[facility] [address]we[address]ttf[address] [place], [place] [address]Dr. Farhat Leal Bilirubin [Mass/Vol] 0.6 mg/dL Normal 0.2-1.0 [facility] Comment on above: Performed By: #### P HOS, CMP ####[facility] [address]zzukx[address] [place], [place] [address]Dr. Farhat Leal Calcium [Mass/Vol] 8.1 mg/dL Critically low 8.5-10.1 Th e [facility] Comment on above: Performed By: #### P HOS, CMP ####[facility] [address]jm[address] [place], [place] [address]Dr. Farhat Leal Chloride [Moles/Vol] 100 mmol/L Normal 98-107 [facility] Comment on above: Performed By: #### P HOS, CMP ####[facility] Afqwnnafwa[address] [place], [place] [address]Dr. Farhat Leal CO2 [Moles/Vol] 34.2 mmol/L Critically high 21.0-32.0 [facility] Comment on above: Performed By: #### P HOS, CMP ####[facility] Ikdhnpmhcd[address] [place], [place] [address]Dr. Farhat Leal Creatinine [Mass/Vol] 0.92 mg/dL Normal 0.70-1.30 [facility] Comment on above: Performed By: #### P HOS, CMP ####[facility] [address]cr[address] [place] [address]Dr. Farhat Leal EGFR-AF QATARI >60 Normal >=60 [facility] Comment on above: Performed By: #### P HOS, CMP ####[facility] Laozoeqegm[address] [place] [address]Dr. Farhat Leal EGFR-NON AF QATARI >60 Normal >=60 [facility] Comment on above: Performed By: #### P HOS, CMP ####[facility] Dyajwzhrer[address] [place] [address]Dr. Farhat Leal Globulin (S) [Mass/Vol] 3.3 g/dL Normal [facility] Comment on above: Performed By: #### P HOS, CMP ####[facility] Zkcpejgesv47[address] [place] [address]Dr. Farhat Elvis Glucose [Mass/Vol] 116 mg/dL Critically high 74-106 [facility] Comment on above: Performed By: #### P HOS, CMP ####[facility] Mqrkgwsgsd5[address] [place] [address]Dr. Farhat Elvis Potassium [Moles/Vol] 3.3 mmol/L Critically low 3.5-5.1 [facility] Comment on above: Performed By: #### P HOS, CMP ####[facility] Pwuoramnzt[address] [place] [address]Dr. Farhat Elvis Protein [Mass/Vol] 5.0 g/dL Critically low 6.4-8.2 [facility] Comment on above: Performed By: #### P HOS, CMP ####[facility] Kdyafmnqyr7[address] [place] [address]Dr. Farhat Leal Sodium [Moles/Vol] 136 mmol/L Normal 136-145 [facility] Comment on above: Performed By: #### P HOS, CMP ####[facility] Dmtpgfydco64[address] [place] [address]Dr. Farhat Elvis Urea nitrogen [Mass/Vol] 14.0 mg/dL Normal 7.0-18.0 [facility] Comment on above: Performed By: #### P HOS, CMP ####[facility] Tedffufebt225[address] [place], [place] [address]Dr. Farhat Leal Urea nitrogen/Creatinine [Mass ratio] 15.2 mg/mg Normal [facility] Comment on above: Performed By: #### P HOS, CMP ####[facility] Jpioustddi[address] [place], [place] [address]Dr. Farhat Leal PROTIMEon 12-29-2021 INR Coag (PPP) [Relative time] 1.26 {INR} Normal [facility] Comment on above: Performed By: #### P T ####[facility] Qisxsttgbi[address] [place], [place] [address]Dr. Farhat Leal INR GUIDELINES SEE BELOW Normal [facility] Comment on above: Result Comment: MALINA RED INR: 2.0 - 3.0 CONDITIONS NOT LISTED BELOW 2.5 - 3.5 FOR PROSTHETIC HEART VALVE REPLACEMENT 2.5 - 3.5 RECURRENT THROMBOSIS Performed By: #### P T ####[facility] Kgtzftapse[address] [place], [place] [address]Dr. Farhat Leal PT Coag (PPP) [Time] 13.4 s Critically high 9.0-11.6 [facility] Comment on above: Performed By: #### P T ####[facility] Xhqyyagsef[address] [place], [place] [address]Dr. Farhat Leal XR MODIFIED BARIUM SWALLOWon 12-25-2021 XR MODIFIED BARIUM SWALLOW Normal [facility] FUNGAL CULTUREon 12-24-2021 Fungus (Mycology) Culture Final report Normal [facility] Comment on above: Performed By: #### C XFUN ####[facility] Miconqqklb[address] [place], [place] [address]Dr. Farhat Leal Fungus Stain Final report Normal [facility] Comment on above: Performed By: #### C XFUN ####[facility] Nyhizmhlik[address] [place], [place] [address]Dr. Farhat Leal Result 1 Comment Normal [facility] Comment on above: Result Comment: ANNI/ Calcofluor preparation: no fungus observed. Performed By: #### C XFUN ####[facility] T[address]scjuljs[address] [place] [address]Dr. Madelynlorri Leal Result Comment: No y east or mold isolated after 4 weeks. VANCOMYCIN TROUGHon 12-21-19 VANCOMYCIN TROUGH 14.4 ug/ml Normal 5.0-20.0 [facility] Comment on above: Performed By: #### V ANCT ####[facility] Yqzutfqtbd[address] [place], [place] [address]Dr. Farhat Leal CBC AUTO DIFFon 12-14-2021 BASO # 0.0 103/ul Normal 0.0-0.1 [facility] Comment on above: Performed By: #### C BC ####[facility] Jpdbwplsas[address] [place], [place] [address]Dr. Farhat Leal Basophils/100 WBC (Bld) 0.2 % Normal 0.2-2.0 [facility] Comment on above: Performed By: #### C BC ####[facility] Qgsjmqfsdp[address] [place], [place] [address]Dr. Farhat Leal EO # 0.2 103/ul Normal 0.0-0.7 [facility] Comment on above: Performed By: #### C BC ####[facility] Zuqojwcekd[address] [place], [place] [address]Dr. Farhat Leal Eosinophils/100 WBC (Bld) 2.1 % Normal 0.9-7.0 [facility] Comment on above: Performed By: #### C BC ####[facility] Wigifztqtd[address] [place], [place] [address]Dr. Farhat Leal Erythrocyte distribution width (RBC) [Ratio] 18.2 % Critically high 11.0-15.0 [facility] Comment on above: Performed By: #### C BC ####[facility] Ebgvkewjfo[address] [place], [place] [address]Dr. Farhat Leal Hematocrit (Bld) [Volume fraction] 25.8 % Critically low 42.0-54.0 [facility] Comment on above: Performed By: #### C BC ####[facility] Nseznveluq[address] [place] [address]Dr. Farhat Leal Hemoglobin (Bld) [Mass/Vol] 8.0 g/dL Critically low 14.0-18.0 [facility] Comment on above: Performed By: #### C BC ####[facility] Bfdrwiyyho66[address] [place] [address]Dr. Farhat Leal IG # 0.08 10e3/ul Critically high 0.00-0.03 [facility] Comment on above: Performed By: #### C BC ####[facility] Epsqevifrs5[address] [place] [address]Dr. Farhat Leal IG % 0.7 % Critically high 0.0-0.5 [facility] Comment on above: Performed By: #### C BC ####[facility] Jwujotpkvf1423 [place] [address]Dr. Farhat Leal LYMPH # 0.9 103/ul Critically low 1.2-3.8 [facility] Comment on above: Performed By: #### C BC ####[facility] Ac[address]temfjj[address] [place] [address]Dr. Farhat Leal Lymphocytes/100 WBC (Bld) 8.7 % Critically low 20.5-60.0 [facility] Comment on above: Performed By: #### C BC ####[facility] Klsdogavto[address] [place] [address]Dr. Farhat Leal MANUAL DIFF REQ NO Normal [facility] Comment on above: Performed By: #### C BC ####[facility] Inwmlphtfc50[address] [place] [address]Dr. Farhat Leal MCH (RBC) [Entitic mass] 30.0 pg Normal 25.9-34.0 [facility] Comment on above: Performed By: #### C BC ####[facility] Lnprpgpjbx[address] [place], [place] [address]Dr. Farhat Leal MCHC (RBC) [Mass/Vol] 31.0 g/dL Normal 29.9-35.2 [facility] Comment on above: Performed By: #### C BC ####[facility] Z[address]sc[address]izpob[address] [place] [address]Dr. Farhat Leal MCV (RBC) [Entitic vol] 96.6 fL Critically high 80.0-94.0 [facility] Comment on above: Performed By: #### C BC ####[facility] [address]zmgbkc14[address] [place] [address]Dr. Farhat Leal MONO # 0.7 103/ul Normal 0.3-0.8 [facility] Comment on above: Performed By: #### C BC ####[facility] Itxqzoxxvu32[address] [place] [address]Dr. Farhat Leal Monocytes/100 WBC (Bld) 6.7 % Normal 1.7-12.0 [facility] Comment on above: Performed By: #### C BC ####[facility] Uxyl[address]uykv[address] [place], [place] [address]Dr. Farhat Leal NEUT # 8.8 103/ul Critically high 1.4-6.5 [facility] Comment on above: Performed By: #### C BC ####[facility] Thhlpngbth24[address] [place], [place] [address]Dr. Farhat Leal Neutrophils/100 WBC (Bld) 81.6 % Critically high 43.0-75.0 [facility] Comment on above: Performed By: #### C BC ####[facility] W[address]slhbhhfp75[address] [place] [address]Dr. Farhat Leal Platelet mean volume (Bld) [Entitic vol] 10.5 fL Normal 9.5-13.5 [facility] Comment on above: Performed By: #### C BC ####[facility] Xyvomkqghe6[address] [place] [address]Dr. Farhat Lela PLT 285 103/ul Normal 150-450 [facility] Comment on above: Performed By: #### C BC ####[facility] Dtfkmoyoze0177 [place] [address]Dr. Farhat Elvis RBC 2.67 106/ul Critically low 4.70-6.10 [facility] Comment on above: Performed By: #### C BC ####[facility] Imrjaukjby[address] [place] [address]Dr. Farhat Elvis WBC 10.7 103/ul Normal 4.0-11.0 [facility] Comment on above: Performed By: #### C BC ####[facility] Jhofrejfwh[address] [place], [place] [address]Dr. Farhat Elvis PROF CHEM 8 (BAS METB)on Anion gap [Moles/Vol] 12.4 mmol/L Normal [facility] Comment on above: Performed By: #### B MP ####[facility] Hrxhitliqt[address] [place], [place] [address]Dr. Farhat Leal Calcium [Mass/Vol] 7.8 mg/dL Critically low 8.5-10.1 [facility] Comment on above: Performed By: #### B MP ####[facility] Gmpwkoowlb[address] [place], [place] [address]Dr. Farhat Leal Chloride [Moles/Vol] 102 mmol/L Normal 98-107 [facility] Comment on above: Performed By: #### B MP ####[facility] Hwvujjvrkr[address] [place], [place] [address]Dr. Farhat Leal CO2 [Moles/Vol] 28.1 mmol/L Normal 21.0-32.0 [facility] Comment on above: Performed By: #### B MP ####[facility] [address]timbulpbv[address] [place], [place] [address]Dr. Farhat Leal Creatinine [Mass/Vol] 1.24 mg/dL Normal 0.70-1.30 [facility] Comment on above: Performed By: #### B MP ####[facility] Eauorofcas[address] [place], [place] [address]Dr. Farhat Leal EGFR-AF QATARI >60 Normal >=60 [facility] Comment on above: Performed By: #### B MP ####[facility] Ggbxwvivkv[address] [place], [place] [address]Dr. Farhat Lela EGFR-NON AF QATARI 57 mL/min/1.73m2 Critically low >=60 [facility] Comment on above: Performed By: #### B MP ####[facility] Zrcekmrgyc50[address] [place] [address]Dr. Farhat Leal Glucose [Mass/Vol] 296 mg/dL Critically high 74-106 [facility] Comment on above: Performed By: #### B MP ####[facility] Esyruodiiu13[address] [place] [address]Dr. Farhat Leal Potassium [Moles/Vol] 3.5 mmol/L Normal 3.5-5.1 [facility] Comment on above: Performed By: #### B MP ####[facility] Ggijizlyzk63[address] [place] [address]Dr. Farhat Leal Sodium [Moles/Vol] 139 mmol/L Normal 136-145 [facility] Comment on above: Performed By: #### B MP ####[facility] Hznvnryzcr4442 [place] [address]Dr. Farhat Lela Urea nitrogen [Mass/Vol] 27.0 mg/dL Critically high 7.0-18.0 [facility] Comment on above: Performed By: #### B MP ####[facility] Ieykkweixk[address] [place], [place] [address]Dr. Farhat Leal Urea nitrogen/Creatinine [Mass ratio] 21.8 mg/mg Normal [facility] Comment on above: Performed By: #### B MP ####[facility] Ngkfrgnqpu9541 [place] [address]Dr. Farhat Leal PROTIMEon 12-14-2021 INR Coag (PPP) [Relative time] 3.36 {INR} Normal [facility] Comment on above: Performed By: #### P T ####[facility] Vdykxfgbyw40[address] [place] [address]Dr. Farhat Leal INR GUIDELINES SEE BELOW Normal [facility] Comment on above: Result Comment: MALINA RED INR: 2.0 - 3.0 CONDITIONS NOT LISTED BELOW 2.5 - 3.5 FOR PROSTHETIC HEART VALVE REPLACEMENT 2.5 - 3.5 RECURRENT THROMBOSIS Performed By: #### P T ####[facility] Okftnmfuyk[address] [place], [place] [address]Dr. Farhat Leal PT Coag (PPP) [Time] 33.5 s Critically high 9.0-11.6 [facility] Comment on above: Performed By: #### P T ####[place] [address] [place] [address]DrSkylar Leal XR CHEST 1 Von 12-14-2021 XR CHEST 1 V Normal [facility] No Panel Informationon 12-01 BLANK _ [facility] Implant Date 04/22/2012 [facility] CHECKon AMS Duration (ms) 5 of 8 [facility] AMS Fallback Rate (bpm) DDIR [facility] AV Delay Adaptive Paced Minimum (ms) 300 ms [facility] AV Delay Adaptive Rate Maximum (bpm) 130 {beats}/min [facility] AV Delay Adaptive Rate Minimum (bpm) 70 {beats}/min [facility] AV Delay Adaptive Sensed Minimum (ms) 300 ms [facility] AV Delay Paced (ms) 300 ms [facility] AV Delay Sensed (ms) 300 ms [facility] Jaciel LV Pacing Polarity Unknown [facility] Jaciel LV Sensing Polarity Unknown [facility] Jaciel RA Pacing Amplitude (volts) 2.4 V [facility] Jaciel RA Pacing Polarity BI [facility] Jaciel RA Pacing Pulse Width (ms) 0.4 ms [facility] Jaciel RA Sensing Amplitude (mvolts) AUTO [facility] Jaciel RA Sensing Blanking Period (ms) 56 ms [facility] Jaciel RA Sensing Polarity BI [facility] Jaciel RA Sensing Refractory Period (ms) AUTO [facility] Jaciel RV Pacing Amplitude (volts) 3.4 V [facility] Jaciel RV Pacing Polarity BI [facility] Jaciel RV Pacing Pulse Width (ms) 0.4 ms [facility] Jaciel RV Sensing Amplitude (mvolts) AUTO [facility] Jaciel RV Sensing Blanking Period (ms) 30 ms [facility] Jaciel RV Sensing Polarity BI [facility] Jaciel RV Sensing Refractory Period (ms) 250 ms [facility] Hysteresis Rate (bpm) 60 {beats}/min [facility] Lead1 Mfg SUZETTE [facility] Lead2 Mfg SUZETTE [facility] Location RA [facility] Location RV [facility] Lower Rate (bpm) 60 {beats}/min [facility] Max Sensor Rate (bmp) 130 {beats}/min [facility] Model [id number] Monika Dominguez [facility] Model [id number] [facility] Model 748756 [facility] Pac[facility]ependent? [facility] PM-Device Mfg BIO [facility] PM-PMT Intervention ON [facility] PM-PVC Intervention ON [facility] PM-Rate Modulation Acceleration Reaction 4 s [facility] PM-Rate Modulation Deceleration 0.5 m [facility] PM-Rate Modulation [place] 23 [facility] PM-Rate Modulation Threshold Medium [facility] RA Bipolar Impedance ohms 448 ohm [facility] Rhythm AF with controlled ventricular rate. [facility] RV Bipolar Impedance ohms 390 ohm [facility] Serial Number [id number] [facility] Serial Number [id number] [facility] Serial Number [id number] [facility] Thresh RA Sensing Amplitude (mvolts) 2.4 mV [facility] Thresh RV Capture Amplitude (volts) 1.8 V [facility] Thresh RV Capture Duration (ms) 0.4 ms [facility] Thresh RV Sensing Amplitude (mvolts) 2.4 mV [facility] Tracking Rate (bpm) 160 {beats}/min [facility] BNPon 11-28-2021 Natriuretic peptide B (Bld) [Mass/Vol] 20392.0 pg/mL Critically high <=1,800.0 [facility] Comment on above: Performed By: #### C MP, BNP, CRP ####[facility] N[address]vqnaa[address] [place], [place] [address]DrSkylar Leal CBC AUTO DIFFon 11-28-2021 BASO # 0.0 103/ul Normal 0.0-0.1 [facility] Comment on above: Performed By: #### C BC ####[facility] Jxnfsjhgws[address] [place], [place] [address]Dr. Farhat Leal Basophils/100 WBC (Bld) 0.3 % Normal 0.2-2.0 [facility] Comment on above: Performed By: #### C BC ####[facility] Fcwmyrozdk[address] [place], [place] [address]DrSkylar Leal EO # 0.1 103/ul Normal 0.0-0.7 [facility] Comment on above: Performed By: #### C BC ####[facility] Jsxtkcfyax[address] [place], [place] [address]DrSkylar Leal Eosinophils/100 WBC (Bld) 1.0 % Normal 0.9-7.0 [facility] Comment on above: Performed By: #### C BC ####[facility] Lmrnbtgzwt9216 [place] [address]Dr. Farhat Leal Erythrocyte distribution width (RBC) [Ratio] 14.0 % Normal 11.0-15.0 [facility] Comment on above: Performed By: #### C BC ####[facility] Pcybszuzaq[address] [place], [place] [address]Dr. Farhat Leal Hematocrit (Bld) [Volume fraction] 27.6 % Critically low 42.0-54.0 [facility] Comment on above: Performed By: #### C BC ####[facility] Ejtocfzivw[address] [place], [place] [address]Dr. Farhat Leal Hemoglobin (Bld) [Mass/Vol] 9.0 g/dL Critically low 14.0-18.0 [facility] Comment on above: Performed By: #### C BC ####[facility] Unuzreqalr[address] [place], [place] [address]Dr. Farhat Leal IG # 0.12 10e3/ul Critically high 0.00-0.03 [facility] Comment on above: Performed By: #### C BC ####[facility] Yeshtjenpg[address] [place], [place] [address]Dr. Farhat Leal IG % 1.0 % Critically high 0.0-0.5 [facility] Comment on above: Performed By: #### C BC ####[facility] Fliaecsksr[address] [place], [place] [address]Dr. Farhat Leal LYMPH # 1.2 103/ul Normal 1.2-3.8 [facility] Comment on above: Performed By: #### C BC ####[facility] Ojgdqfikkh[address] [place], [place] [address]Dr. Farhat Leal Lymphocytes/100 WBC (Bld) 9.9 % Critically low 20.5-60.0 [facility] Comment on above: Performed By: #### C BC ####[facility] Unbtbahxpm[address] [place], [place] [address]Dr. Madelynlorri Leal MANUAL DIFF REQ NO Normal [facility] Comment on above: Performed By: #### C BC ####[facility] Uoytbnnvxf78[address] [place] [address]Dr. Farhat Elvis MCH (RBC) [Entitic mass] 30.0 pg Normal 25.9-34.0 [facility] Comment on above: Performed By: #### C BC ####[facility] Qcuowcgter[address] [place], [place] [address]Dr. Farhat Elvis MCHC (RBC) [Mass/Vol] 32.6 g/dL Normal 29.9-35.2 [facility] Comment on above: Performed By: #### C BC ####[facility] Yqxiswgphl[address] [place], [place] [address]Dr. Farhat Leal MCV (RBC) [Entitic vol] 92.0 fL Normal 80.0-94.0 [facility] Comment on above: Performed By: #### C BC ####[facility] Jszjbbnxoj[address] [place], [place] [address]Dr. Farhat Leal MONO # 1.1 103/ul Critically high 0.3-0.8 [facility] Comment on above: Performed By: #### C BC ####[facility] Qeozzpmzsi[address] [place], [place] [address]Dr. Farhat Leal Monocytes/100 WBC (Bld) 9.3 % Normal 1.7-12.0 [facility] Comment on above: Performed By: #### C BC ####[facility] Jgxfuxxbiq[address] [place], [place] [address]Dr. Farhat Leal NEUT # 9.3 103/ul Critically high 1.4-6.5 [facility] Comment on above: Performed By: #### C BC ####[facility] Vrvyzvndfb159[address] [place], [place] [address]Dr. Farhat Leal Neutrophils/100 WBC (Bld) 78.5 % Critically high 43.0-75.0 [facility] Comment on above: Performed By: #### C BC ####[facility] Ldx[address]wjnxhw[address] [place], [place] [address]Dr. Farhat Leal Platelet mean volume (Bld) [Entitic vol] 9.6 fL Normal 9.5-13.5 [facility] Comment on above: Performed By: #### C BC ####[facility] [address]kgcyb[address] [place] [address]Dr. Farhat Leal PLT 357 103/ul Normal 150-450 [facility] Comment on above: Performed By: #### C BC ####[facility] Ltoxsmcykx4019 [place] [address]Dr. Farhat Leal RBC 3.00 106/ul Critically low 4.70-6.10 [facility] Comment on above: Performed By: #### C BC ####[facility] Wnohjtjdcz6648 [place] [address]Dr. Farhat Leal WBC 11.8 103/ul Critically high 4.0-11.0 [facility] Comment on above: Performed By: #### C BC ####[facility] Aetueoixop[address] [place], [place] [address]Dr. Farhat Leal CRPon 11-28-2021 CRP 20.9 mg/dL Critically high <=1.0 [facility] Comment on above: Performed By: #### C MP, BNP, CRP ####[facility] K[address]ge[address]axij[address] [place] [address]Dr. Farhat Leal CULTURE OTHERon 11-28-2021 CULTURE OTHER Normal [facility] Comment on above: Performed By: #### O THCX ####[facility] Tzrdhrakyj35[address] [place] [address]Dr. Farhat Leal CULTURE OTHER Normal [facility] Comment on above: Performed By: #### O THCX ####[facility] W[address]ztzdjalm[address] [place], [place] [address]Dr. Farhat Leal PROF 14(COMP METB)on 022 Albumin [Mass/Vol] 1.4 g/dL Critically low 3.4-5.0 [facility] Comment on above: Performed By: #### C MP, BNP, CRP ####[facility] Hahexejmba[address] [place] [address]Dr. Farhat Leal Albumin/Globulin [Mass ratio] 0.4 {ratio} Normal [facility] Comment on above: Performed By: #### C MP, BNP, CRP ####[facility] Nucbvmxzku6528 [place] [address]Dr. Farhat Leal ALP [Catalytic activity/Vol] 82 U/L Normal 46-116 [facility] Comment on above: Performed By: #### C MP, BNP, CRP ####[facility] Tdseprdays6[address] [place] [address]Dr. Farhat Elvis ALT [Catalytic activity/Vol] 20 U/L Normal 16-63 [facility] Comment on above: Performed By: #### C MP, BNP, CRP ####[facility] Bbhnjwafzi[address] [place], [place] [address]Dr. Madelynlorri Leal Anion gap [Moles/Vol] 13.0 mmol/L Normal [facility] Comment on above: Performed By: #### C MP, BNP, CRP ####[facility] Ietupvtcxl13[address] [place], [place] [address]Dr. Farhat Leal AST [Catalytic activity/Vol] 33 U/L Normal 15-37 [facility] Comment on above: Performed By: #### C MP, BNP, CRP ####[facility] Qhqaulngyj23[address] [place], [place] [address]Dr. Madelynlorri Leal Bilirubin [Mass/Vol] 0.7 mg/dL Normal 0.2-1.0 [facility] Comment on above: Performed By: #### C MP, BNP, CRP ####[facility] Mmcximlcvw[address] [place], [place] [address]Dr. Madelynlorri Leal Calcium [Mass/Vol] 8.4 mg/dL Critically low 8.5-10.1 [facility] Comment on above: Performed By: #### C MP, BNP, CRP ####[facility] Qqnsfjksrp[address] [place], [place] [address]Dr. Farhat Leal Chloride [Moles/Vol] 100 mmol/L Normal 98-107 [facility] Comment on above: Performed By: #### C MP, BNP, CRP ####[facility] Nzbfnwkawi2764 [place] [address]Dr. Farhat Elvis CO2 [Moles/Vol] 23.7 mmol/L Normal 21.0-32.0 [facility] Comment on above: Performed By: #### C MP, BNP, CRP ####[facility] Pnficxehrw3566 [place] [address]Dr. Farhat Elvis Creatinine [Mass/Vol] 1.70 mg/dL Critically high 0.70-1.30 [facility] Comment on above: Performed By: #### C MP, BNP, CRP ####[facility] R[address]uhfjzwu[address] [place], [place] [address]Dr. Farhat Elvis EGFR-AF QATARI 48 mL/min/1.73m2 Critically low >=60 [facility] Comment on above: Performed By: #### C MP, BNP, CRP ####[facility] [address]xz[address]hsizr[address] [place], [place] [address]Dr. Farhat Leal EGFR-NON AF QATARI 39 mL/min/1.73m2 Critically low >=60 [facility] Comment on above: Performed By: #### C MP, BNP, CRP ####[facility] Rdosniatac469[address] [place], [place] [address]Dr. Farhat Leal Globulin (S) [Mass/Vol] 3.6 g/dL Normal [facility] Comment on above: Performed By: #### C MP, BNP, CRP ####[facility] Hawonptjdi76[address] [place], [place] [address]Dr. Madelynlorri Elvis Glucose [Mass/Vol] 232 mg/dL Critically high 74-106 T [facility] Comment on above: Performed By: #### C MP, BNP, CRP ####[facility] Hupwalhjwh[address] [place], [place] [address]Dr. Farhat Leal Potassium [Moles/Vol] 3.7 mmol/L Normal 3.5-5.1 [facility] Comment on above: Performed By: #### C MP, BNP, CRP ####[facility] Jdurvlikud[address] [place], [place] [address]Dr. Farhat Leal Protein [Mass/Vol] 5.0 g/dL Critically low 6.4-8.2 [facility] Comment on above: Performed By: #### C MP, BNP, CRP ####[facility] [address]ug[address] [place] [address]Dr. Farhat Leal Sodium [Moles/Vol] 133 mmol/L Critically low 136-145 [facility] Comment on above: Performed By: #### C MP, BNP, CRP ####[facility] Jxtoyyqcvl17[address] [place], [place] [address]Dr. Farhat Leal Urea nitrogen [Mass/Vol] 52.0 mg/dL Critically high 7.0-18.0 [facility] Comment on above: Performed By: #### C MP, BNP, CRP ####[facility] Cjhxohogdf6540[address] [place], [place] [address]Dr. Farhat Leal Urea nitrogen/Creatinine [Mass ratio] 30.6 mg/mg Normal [facility] Comment on above: Performed By: #### C MP, BNP, CRP ####[facility] Gpmszxsmrw7[address] [place], [place] [address]Dr. Farhat Leal PROTIMEon 11-28-2021 INR Coag (PPP) [Relative time] 1.29 {INR} Normal [facility] Comment on above: Performed By: #### P T ####[facility] Rcwvjeegve8[address] [place], [place] [address]Dr. Farhat Leal INR GUIDELINES SEE BELOW Normal [facility] Comment on above: Result Comment: MALINA RED INR: 2.0 - 3.0 CONDITIONS NOT LISTED BELOW 2.5 - 3.5 FOR PROSTHETIC HEART VALVE REPLACEMENT 2.5 - 3.5 RECURRENT THROMBOSIS Performed By: #### P T ####[facility] Laxdfvbdxc136[address] [place], [place] [address]Dr. Farhat Leal PT Coag (PPP) [Time] 13.7 s Critically high 9.0-11.6 [facility] Comment on above: Performed By: #### P T ####[facility] Zvzhnuvwoq87[address] [place], [place] [address]Dr. Farhat Leal SED RATE WESTERGRENon 2021 SED RATE 77 mm/hr Critically high <=20 [facility] Comment on above: Performed By: #### S EDR ####[facility] Ujrvnffrvz[address] [place], [place] [address]Dr. Farhat Leal XR CHEST 2 Von 11-28-2021 XR CHEST 2 V Normal [facility] BNPon 11-27-2021 Natriuretic peptide B (Bld) [Mass/Vol] 97242.0 pg/mL Critically high <=1,800.0 [facility] Comment on above: Performed By: #### B SHIPPER RECEIVER, CMP, CRP ####[facility] Djrxelluny070[address] [place], [place] [address]Dr. Farhat Leal CBC AUTO DIFFon 11-27-2021 BASO # 0.0 103/ul Normal 0.0-0.1 [facility] Comment on above: Performed By: #### C BC ####[facility] Vlmuduxeea8225[address] [place], [place] [address]Dr. Farhat Leal Basophils/100 WBC (Bld) 0.2 % Normal 0.2-2.0 [facility] Comment on above: Performed By: #### C BC ####[facility] Klmixrqkpe069[address] [place], [place] [address]Dr. Farhat Leal EO # 0.2 103/ul Normal 0.0-0.7 [facility] Comment on above: Performed By: #### C BC ####[facility] Vgvluinwil37[address] [place], [place] [address]Dr. Farhat Leal Eosinophils/100 WBC (Bld) 1.9 % Normal 0.9-7.0 [facility] Comment on above: Performed By: #### C BC ####[facility] Gdmknnrvac715[address] [place], [place] [address]Dr. Farhat Leal Erythrocyte distribution width (RBC) [Ratio] 13.9 % Normal 11.0-15.0 [facility] Comment on above: Performed By: #### C BC ####[facility] Weseyerulu840[address] [place], [place] [address]Dr. Farhat Leal Hematocrit (Bld) [Volume fraction] 28.7 % Critically low 42.0-54.0 [facility] Comment on above: Performed By: #### C BC ####[facility] [address] [place] [address]DrSkylar Leal Hemoglobin (Bld) [Mass/Vol] 9.3 g/dL Critically low 14.0-18.0 [facility] Comment on above: Performed By: #### C BC ####[facility] [address]btbqz[address] [place] [address]DrSkylar Leal IG # 0.14 10e3/ul Critically high 0.00-0.03 [facility] Comment on above: Performed By: #### C BC ####[facility] H[address]oseyjui[address] [place] [address]DrSkylar Leal IG % 1.2 % Critically high 0.0-0.5 [facility] Comment on above: Performed By: #### C BC ####[facility] Hpfqqwggjp4616[address] [place], [place] [address]DrSkylar Lela LYMPH # 1.1 103/ul Critically low 1.2-3.8 [facility] Comment on above: Performed By: #### C BC ####[facility] Pozwdmgjfb236[address] [place], [place] [address]DrSkylar Leal Lymphocytes/100 WBC (Bld) 9.4 % Critically low 20.5-60.0 [facility] Comment on above: Performed By: #### C BC ####[facility] Gryxowcdbv[address] [place] [address]DrSkylar Leal MANUAL DIFF REQ NO Normal [facility] Comment on above: Performed By: #### C BC ####[facility] Qqbwgsklgw2644 [place] [address]DrSkylar Leal MCH (RBC) [Entitic mass] 29.7 pg Normal 25.9-34.0 [facility] Comment on above: Performed By: #### C BC ####[facility] [address]pxfasu[address] [place] [address]DrSkylar Leal MCHC (RBC) [Mass/Vol] 32.4 g/dL Normal 29.9-35.2 [facility] Comment on above: Performed By: #### C BC ####[facility] O[address]vsaxmna[address] [place] [address]DrSkylar Leal MCV (RBC) [Entitic vol] 91.7 fL Normal 80.0-94.0 [facility] Comment on above: Performed By: #### C BC ####[facility] Gpaikipbow7[address] [place], [place] [address]DrSkylar Leal MONO # 1.1 103/ul Critically high 0.3-0.8 [facility] Comment on above: Performed By: #### C BC ####[facility] Cieqyybkan9516[address] [place], [place] [address]DrSkylar Leal Monocytes/100 WBC (Bld) 9.7 % Normal 1.7-12.0 [facility] Comment on above: Performed By: #### C BC ####[facility] Gwcywffynx5967[address] [place], [place] [address]Dr. Farhat Leal NEUT # 9.2 103/ul Critically high 1.4-6.5 [facility] Comment on above: Performed By: #### C BC ####[facility] Swadwgrris3317[address] [place], [place] [address]DrSkylar Leal Neutrophils/100 WBC (Bld) 77.6 % Critically high 43.0-75.0 [facility] Comment on above: Performed By: #### C BC ####[facility] Yrhoqwtxfa533[address] [place], [place] [address]DrSkylar Leal Platelet mean volume (Bld) [Entitic vol] 9.5 fL Normal 9.5-13.5 [facility] Comment on above: Performed By: #### C BC ####[facility] Kjvwvkuera385[address] [place], [place] [address]DrSkylar Leal PLT 375 103/ul Normal 150-450 [facility] Comment on above: Performed By: #### C BC ####[facility] Isojhqqukh538[address] [place], [place] [address]DrSkylar Leal RBC 3.13 106/ul Critically low 4.70-6.10 [facility] Comment on above: Performed By: #### C BC ####[facility] Tok[address]knwhn[address] [place] [address]Dr. Farhat Leal WBC 11.8 103/ul Critically high 4.0-11.0 [facility] Comment on above: Performed By: #### C BC ####[facility] Vpuzqybhkk[address] [place] [address]Dr. Madelynlorri Elvis CRPon 11-27-2021 CRP 24.5 mg/dL Critically high <=1.0 [facility] Comment on above: Performed By: #### B SHIPPER RECEIVER, CMP, CRP ####[facility] Lxvaalccou[address] [place], [place] [address]Dr. Madelynlorri Leal CULTURE OTHERon 11-27-2021 CULTURE OTHER Normal [facility] Comment on above: Performed By: #### O THCX ####[facility] Otuhrgjhnr9[address] [place], [place] [address]Dr. Madelynlorri Leal CULTURE OTHER Normal [facility] Comment on above: Performed By: #### O THCX ####[facility] Hcxqyhpill7918[address] [place], [place] [address]Dr. Farhat Leal CULTURE WOUNDon 11-27-2021 CULTURE WOUND Normal [facility] Comment on above: Performed By: #### W OUNDCX ####[facility] Fxgqrdmefw69[address] [place], [place] [address]Dr. Farhat Leal POINT OF CARE GLUCOSEon 11-15 Glucose [Mass/Vol] 147 mg/dL Critically high 74-106 [facility] Comment on above: Performed By: #### P OCGLUC ####[facility] Yqotxggymq395[address] [place], [place] [address]Dr. Farhat Leal PROF 14(COMP METB)on 022 Albumin [Mass/Vol] 1.4 g/dL Critically low 3.4-5.0 [facility] Comment on above: Performed By: #### B SHIPPER RECEIVER, CMP, CRP ####[facility] Kxrixjxdvl737[address] [place], [place] [address]Dr. Farhat Leal Albumin/Globulin [Mass ratio] 0.4 {ratio} Normal [facility] Comment on above: Performed By: #### B SHIPPER RECEIVER, CMP, CRP ####[facility] Ascatjcnso738[address] [place], [place] [address]Dr. Farhat Leal ALP [Catalytic activity/Vol] 82 U/L Normal 46-116 [facility] Comment on above: Performed By: #### B SHIPPER RECEIVER, CMP, CRP ####[facility] Grphlrcrbq355[address] [place], [place] [address]Dr. Farhat Leal ALT [Catalytic activity/Vol] 22 U/L Normal 16-63 [facility] Comment on above: Performed By: #### B SHIPPER RECEIVER, CMP, CRP ####[facility] Qgvxjyuqil8977[address] [place], [place] [address]Dr. Farhat Leal Anion gap [Moles/Vol] 14.2 mmol/L Normal [facility] Comment on above: Performed By: #### B SHIPPER RECEIVER, CMP, CRP ####[facility] Osfjtytmrf1925[address] [place], [place] [address]Dr. Farhat Leal AST [Catalytic activity/Vol] 35 U/L Normal 15-37 [facility] Comment on above: Performed By: #### B SHIPPER RECEIVER, CMP, CRP ####[facility] Qymhtsrblb030[address] [place], [place] [address]Dr. Farhat Elvis Bilirubin [Mass/Vol] 0.7 mg/dL Normal 0.2-1.0 [facility] Comment on above: Performed By: #### B SHIPPER RECEIVER, CMP, CRP ####[facility] Lwlijqnspu849[address] [place], [place] [address]Dr. Farhat Elvis Calcium [Mass/Vol] 8.2 mg/dL Critically low 8.5-10.1 [facility] Comment on above: Performed By: #### B SHIPPER RECEIVER, CMP, CRP ####[facility] Rpslkaldom[address] [place], [place] [address]Dr. Farhat Leal Chloride [Moles/Vol] 99 mmol/L Normal 98-107 [facility] Comment on above: Performed By: #### B SHIPPER RECEIVER, CMP, CRP ####[facility] [address]wmmg[address] [place] [address]Dr. Farhat Leal CO2 [Moles/Vol] 22.6 mmol/L Normal 21.0-32.0 [facility] Comment on above: Performed By: #### B SHIPPER RECEIVER, CMP, CRP ####[facility] W[address]xfruh[address] [place] [address]Dr. Farhat Leal Creatinine [Mass/Vol] 1.73 mg/dL Critically high 0.70-1.30 [facility] Comment on above: Performed By: #### B SHIPPER RECEIVER, CMP, CRP ####[facility] T[address]oolft[address] [place] [address]Dr. Farhat Elvis EGFR-AF QATARI 47 mL/min/1.73m2 Critically low >=60 [facility] Comment on above: Performed By: #### B SHIPPER RECEIVER, CMP, CRP ####[facility] Hhjmndovok56[address] [place], [place] [address]Dr. Farhat Leal EGFR-NON AF QATARI 38 mL/min/1.73m2 Critically low >=60 [facility] Comment on above: Performed By: #### B SHIPPER RECEIVER, CMP, CRP ####[facility] Chxdjjlokr[address] [place], [place] [address]Dr. Farhat Leal Globulin (S) [Mass/Vol] 3.7 g/dL Normal [facility] Comment on above: Performed By: #### B SHIPPER RECEIVER, CMP, CRP ####[facility] P[address]vwqujjf[address] [place] [address]Dr. Madelynlorri Elvis Glucose [Mass/Vol] 220 mg/dL Critically high 74-106 T [facility] Comment on above: Performed By: #### B SHIPPER RECEIVER, CMP, CRP ####[facility] Yaxofbxtee2736[address] [place], [place] [address]Dr. Farhat Leal Potassium [Moles/Vol] 3.8 mmol/L Normal 3.5-5.1 [facility] Comment on above: Performed By: #### B SHIPPER RECEIVER, CMP, CRP ####[facility] Jvlpuamllo911[address] [place], [place] [address]Dr. Madelynlorri Leal Protein [Mass/Vol] 5.1 g/dL Critically low 6.4-8.2 [facility] Comment on above: Performed By: #### B SHIPPER RECEIVER, CMP, CRP ####[facility] Lnspcfogqj[address] [place] [address]Dr. Farhat Leal Sodium [Moles/Vol] 132 mmol/L Critically low 136-145 [facility] Comment on above: Performed By: #### B SHIPPER RECEIVER, CMP, CRP ####[facility] Cytdtxivdf317[address] [place], [place] [address]Dr. Farhat Leal Urea nitrogen [Mass/Vol] 49.0 mg/dL Critically high 7.0-18.0 [facility] Comment on above: Performed By: #### B SHIPPER RECEIVER, CMP, CRP ####[facility] Njkxbulmdf535[address] [place], [place] [address]Dr. Farhat Leal Urea nitrogen/Creatinine [Mass ratio] 28.3 mg/mg Normal [facility] Comment on above: Performed By: #### B SHIPPER RECEIVER, CMP, CRP ####[facility] Ipkkvfhwbc136[address] [place], [place] [address]Dr. Farhat Leal PROTIMEon 11-27-2021 INR Coag (PPP) [Relative time] 1.25 {INR} Normal [facility] Comment on above: Performed By: #### P T ####[facility] Xbpiibwrxe155[address] [place], [place] [address]Dr. Farhat Leal INR GUIDELINES SEE BELOW Normal [facility] Comment on above: Result Comment: MALINA RED INR: 2.0 - 3.0 CONDITIONS NOT LISTED BELOW 2.5 - 3.5 FOR PROSTHETIC HEART VALVE REPLACEMENT 2.5 - 3.5 RECURRENT THROMBOSIS Performed By: #### P T ####[facility] Skinrqbkxd555[address] [place], [place] [address]Dr. Farhat Leal PT Coag (PPP) [Time] 13.3 s Critically high 9.0-11.6 [facility] Comment on above: Performed By: #### P T ####[facility] Gpznwmydwy5916[address] [place], [place] [address]Dr. Farhat Leal SED RATE CALDERERGRENon 2021 SED RATE 60 mm/hr Critically high <=20 [facility] Comment on above: Performed By: #### S EDR ####[facility] Opppajfjts9923[address] [place], [place] [address]Dr. Farhat Leal VANCOMYCIN TROUGHon 11-28-19 22 VANCOMYCIN TROUGH 21.2 ug/ml Critically high 5.0-20.0 [facility] Comment on above: Performed By: #### V ANCT ####[facility] Zimyshelww0601[address] [place], [place] [address]Dr. Farhat Lael XR CHEST 1 Von 11-27-2021 XR CHEST 1 V Normal [facility] BNPon 11-26-2021 Natriuretic peptide B (Bld) [Mass/Vol] 23202.0 pg/mL Critically high <=1,800.0 [facility] Comment on above: Performed By: #### B SHIPPER RECEIVER, CRP, CMP ####[facility] Ufxmhvbloo925[address] [place], [place] [address]Dr. Farhat Leal CBC AUTO DIFFon 11-26-2021 BASO # 0.0 103/ul Normal 0.0-0.1 [facility] Comment on above: Performed By: #### C BC ####[facility] Pfaeijtxxs917[address] [place], [place] [address]Dr. Farhat Leal Basophils/100 WBC (Bld) 0.2 % Normal 0.2-2.0 [facility] Comment on above: Performed By: #### C BC ####[facility] Xnrogeosnu200[address] [place], [place] [address]Dr. Farhat Leal EO # 0.0 103/ul Normal 0.0-0.7 [facility] Comment on above: Performed By: #### C BC ####[facility] Wmzgokwrjs535[address] [place], [place] [address]Dr. Farhat Leal Eosinophils/100 WBC (Bld) 0.3 % Critically low 0.9-7.0 [facility] Comment on above: Performed By: #### C BC ####[facility] Emhqnmqpsx14[address] [place], [place] [address]Dr. Farhat Leal Erythrocyte distribution width (RBC) [Ratio] 13.9 % Normal 11.0-15.0 [facility] Comment on above: Performed By: #### C BC ####[facility] E[address]owrskwv[address] [place] [address]Dr. Madelynlorri Elvis Hematocrit (Bld) [Volume fraction] 27.3 % Critically low 42.0-54.0 [facility] Comment on above: Performed By: #### C BC ####[facility] Sotytwjvdf055[address] [place], [place] [address]Dr. Farhat Leal Hemoglobin (Bld) [Mass/Vol] 8.8 g/dL Critically low 14.0-18.0 [facility] Comment on above: Performed By: #### C BC ####[facility] Ouifhbuvwj20[address] [place], [place] [address]Dr. Farhat Leal IG # 0.17 10e3/ul Critically high 0.00-0.03 [facility] Comment on above: Performed By: #### C BC ####[facility] Ccmaqqjtid8828[address] [place], [place] [address]Dr. Farhat Leal IG % 1.2 % Critically high 0.0-0.5 [facility] Comment on above: Performed By: #### C BC ####[facility] Sswrvasjyj75[address] [place], [place] [address]DrSkylar Leal LYMPH # 0.7 103/ul Critically low 1.2-3.8 [facility] Comment on above: Performed By: #### C BC ####[facility] Jckmjmkogp426[address] [place], [place] [address]DrSkylar Leal Lymphocytes/100 WBC (Bld) 4.8 % Critically low 20.5-60.0 [facility] Comment on above: Performed By: #### C BC ####[facility] Dqreymyhkx0799[address] [place], [place] [address]DrSkylar Leal MANUAL DIFF REQ NO Normal [facility] Comment on above: Performed By: #### C BC ####[facility] Ngahydpzxi8850[address] [place], [place] [address]DrSkylar Leal MCH (RBC) [Entitic mass] 29.9 pg Normal 25.9-34.0 [facility] Comment on above: Performed By: #### C BC ####[facility] M[address]bwdldat[address] [place] [address]Dr. Farhat Leal MCHC (RBC) [Mass/Vol] 32.2 g/dL Normal 29.9-35.2 [facility] Comment on above: Performed By: #### C BC ####[facility] Hpfvkoutvr315[address] [place], [place] [address]Dr. Farhat Leal MCV (RBC) [Entitic vol] 92.9 fL Normal 80.0-94.0 [facility] Comment on above: Performed By: #### C BC ####[facility] Rodhdytodz1623[address] [place], [place] [address]Dr. Farhat Elvis MONO # 1.3 103/ul Critically high 0.3-0.8 [facility] Comment on above: Performed By: #### C BC ####[facility] Eovzzitsxy[address] [place], [place] [address]Dr. Madelynlorri Leal Monocytes/100 WBC (Bld) 9.6 % Normal 1.7-12.0 [facility] Comment on above: Performed By: #### C BC ####[facility] Outjolmmfh714[address] [place], [place] [address]Dr. Farhat Leal NEUT # 11.4 103/ul Critically high 1.4-6.5 [facility] Comment on above: Performed By: #### C BC ####[facility] Tbuzcgvwzl479[address] [place], [place] [address]Dr. Madelynlorri Leal Neutrophils/100 WBC (Bld) 83.9 % Critically high 43.0-75.0 [facility] Comment on above: Performed By: #### C BC ####[facility] Abalhhknar284[address] [place], [place] [address]Dr. Farhat Elvis Platelet mean volume (Bld) [Entitic vol] 9.6 fL Normal 9.5-13.5 [facility] Comment on above: Performed By: #### C BC ####[facility] Adptiolmwv[address] [place] [address]Dr. Farhat Leal PLT 395 103/ul Normal 150-450 [facility] Comment on above: Performed By: #### C BC ####[facility] Dmicfnwdab5[address] [place] [address]Dr. Farhat Leal RBC 2.94 106/ul Critically low 4.70-6.10 [facility] Comment on above: Performed By: #### C BC ####[facility] Oblpmqdkxv5[address] [place] [address]Dr. Farhat Leal WBC 13.6 103/ul Critically high 4.0-11.0 [facility] Comment on above: Performed By: #### C BC ####[facility] Vhwnssctaw[address] [place], [place] [address]Dr. Farhat Leal CRPon 11-26-2021 CRP [Mass/Vol] mg/L Critically high <=1.0 [facility] Comment on above: Performed By: #### B SHIPPER RECEIVER, CRP, CMP ####[facility] Jzknuivast2485[address] [place], [place] [address]Dr. Farhat Elvis PROF 14(COMP METB)on 022 Albumin [Mass/Vol] 1.5 g/dL Critically low 3.4-5.0 [facility] Comment on above: Performed By: #### B SHIPPER RECEIVER, CRP, CMP ####[facility] [address]omzscy[address] [place] [address]Dr. Farhat Leal Albumin/Globulin [Mass ratio] 0.4 {ratio} Normal [facility] Comment on above: Performed By: #### B SHIPPER RECEIVER, CRP, CMP ####[facility] [address]dfhcwgza[address] [place] [address]Dr. Farhat Leal ALP [Catalytic activity/Vol] 88 U/L Normal 46-116 [facility] Comment on above: Performed By: #### B SHIPPER RECEIVER, CRP, CMP ####[facility] Dsjdfvrgmg24[address] [place] [address]Dr. Farhat Leal ALT [Catalytic activity/Vol] 29 U/L Normal 16-63 [facility] Comment on above: Performed By: #### B SHIPPER RECEIVER, CRP, CMP ####[facility] Hahtawzmwy[address] [place] [address]Dr. Farhat Leal Anion gap [Moles/Vol] 13.3 mmol/L Normal [facility] Comment on above: Performed By: #### B SHIPPER RECEIVER, CRP, CMP ####[facility] Cafbrzukdr26[address] [place] [address]Dr. Farhat Leal AST [Catalytic activity/Vol] 32 U/L Normal 15-37 [facility] Comment on above: Performed By: #### B SHIPPER RECEIVER, CRP, CMP ####[facility] Zwwuysvxme8275 [place] [address]Dr. Farhat Leal Bilirubin [Mass/Vol] 0.6 mg/dL Normal 0.2-1.0 [facility] Comment on above: Performed By: #### B SHIPPER RECEIVER, CRP, CMP ####[facility] Dpfasvlpxy[address] [place], [place] [address]Dr. Farhat Leal Calcium [Mass/Vol] 8.0 mg/dL Critically low 8.5-10.1 [facility] Comment on above: Performed By: #### B SHIPPER RECEIVER, CRP, CMP ####[facility] Vkofzuctuk[address] [place], [place] [address]Dr. Farhat Leal Chloride [Moles/Vol] 98 mmol/L Normal 98-107 [facility] Comment on above: Performed By: #### B SHIPPER RECEIVER, CRP, CMP ####[facility] Pwihgtvlrf8[address] [place] [address]Dr. Farhat Leal CO2 [Moles/Vol] 23.7 mmol/L Normal 21.0-32.0 [facility] Comment on above: Performed By: #### B SHIPPER RECEIVER, CRP, CMP ####[facility] Cmnrdccnpr[address] [place], [place] [address]Dr. Farhat Leal Creatinine [Mass/Vol] 2.08 mg/dL Critically high 0.70-1.30 [facility] Comment on above: Performed By: #### B SHIPPER RECEIVER, CRP, CMP ####[facility] Uhkprpzyhq[address] [place], [place] [address]Dr. Farhat Leal EGFR-AF QATARI 38 mL/min/1.73m2 Critically low >=60 [facility] Comment on above: Performed By: #### B SHIPPER RECEIVER, CRP, CMP ####[facility] Addpqumfmn4[address] [place] [address]Dr. Farhat Leal EGFR-NON AF QATARI 31 mL/min/1.73m2 Critically low >=60 [facility] Comment on above: Performed By: #### B SHIPPER RECEIVER, CRP, CMP ####[facility] W[address]zqmayai[address] [place] [address]Dr. Farhat Leal Globulin (S) [Mass/Vol] 3.7 g/dL Normal [facility] Comment on above: Performed By: #### B SHIPPER RECEIVER, CRP, CMP ####[facility] [address]fkxxcio[address] [place], [place] [address]Dr. Farhat Leal Glucose [Mass/Vol] 315 mg/dL Critically high 74-106 T [facility] Comment on above: Performed By: #### B SHIPPER RECEIVER, CRP, CMP ####[facility] Mkmhsxke[address] [place], [place] [address]Dr. Farhat Leal Potassium [Moles/Vol] 4.0 mmol/L Normal 3.5-5.1 [facility] Comment on above: Performed By: #### B SHIPPER RECEIVER, CRP, CMP ####[facility] Yjltl[address]ms[address] [place], [place] [address]Dr. Farhat Leal Protein [Mass/Vol] 5.2 g/dL Critically low 6.4-8.2 [facility] Comment on above: Performed By: #### B SHIPPER RECEIVER, CRP, CMP ####[facility] Xhemlcwoaa[address] [place], [place] [address]Dr. Farhat Leal Sodium [Moles/Vol] 131 mmol/L Critically low 136-145 [facility] Comment on above: Performed By: #### B SHIPPER RECEIVER, CRP, CMP ####[facility] [address] [place] [address]Dr. Farhat Leal Urea nitrogen [Mass/Vol] 50.0 mg/dL Critically high 7.0-18.0 [facility] Comment on above: Performed By: #### B SHIPPER RECEIVER, CRP, CMP ####[facility] [address] [place] [address]Dr. Farhat Leal Urea nitrogen/Creatinine [Mass ratio] 24.0 mg/mg Normal [facility] Comment on above: Performed By: #### B SHIPPER RECEIVER, CRP, CMP ####[facility] [address]akdnd[address] [place] [address]Dr. Farhat Leal PROTIMEon 11-26-2021 INR Coag (PPP) [Relative time] 1.31 {INR} Normal [facility] Comment on above: Performed By: #### P T ####[facility] Dglxsfzymf[address] [place], [place] [address]Dr. Farhat Leal INR GUIDELINES SEE BELOW Normal [facility] Comment on above: Result Comment: MALINA RED INR: 2.0 - 3.0 CONDITIONS NOT LISTED BELOW 2.5 - 3.5 FOR PROSTHETIC HEART VALVE REPLACEMENT 2.5 - 3.5 RECURRENT THROMBOSIS Performed By: #### P T ####[facility] Cuzbysaeop[address] [place], [place] [address]Dr. Farhat Leal PT Coag (PPP) [Time] 13.9 s Critically high 9.0-11.6 [facility] Comment on above: Performed By: #### P T ####[facility] Sgnypgdswc86[address] [place], [place] [address]Dr. Farhat Leal [facility] SED RATE 87 mm/hr Critically high <=20 [facility] Comment on above: Performed By: #### S EDR ####[facility] Giriwqzwzy[address] [place], [place] [address]Dr. Farhat Leal BNPon 11-25-2021 Natriuretic peptide B (Bld) [Mass/Vol] 47473.0 pg/mL Critically high <=1,800.0 [facility] Comment on above: Performed By: #### C MP, BNP, CRP ####[facility] Gowepxmxwz46[address] [place], [place] [address]Dr. Farhat Leal CBC AUTO DIFFon 11-25-2021 BASO # 0.0 103/ul Normal 0.0-0.1 [facility] Comment on above: Performed By: #### C BC ####[facility] [address]oj[address] [place] [address]Dr. Farhat Leal Basophils/100 WBC (Bld) 0.4 % Normal 0.2-2.0 [facility] Comment on above: Performed By: #### C BC ####[facility] Tucucrdhsd[address] [place] [address]Dr. Farhat Leal EO # 0.1 103/ul Normal 0.0-0.7 [facility] Comment on above: Performed By: #### C BC ####[facility] Xkscekcbyx0035[address] [place], [place] [address]Dr. Farhat Leal Eosinophils/100 WBC (Bld) 1.2 % Normal 0.9-7.0 [facility] Comment on above: Performed By: #### C BC ####[facility] Ajcrqbxdja528[address] [place], [place] [address]Dr. Farhat Leal Erythrocyte distribution width (RBC) [Ratio] 13.7 % Normal 11.0-15.0 [facility] Comment on above: Performed By: #### C BC ####[facility] Nzvhioeldh[address] [place], [place] [address]Dr. Farhat Leal Hematocrit (Bld) [Volume fraction] 29.6 % Critically low 42.0-54.0 [facility] Comment on above: Performed By: #### C BC ####[facility] Gzhkiwjcno05[address] [place], [place] [address]Dr. Farhat Leal Hemoglobin (Bld) [Mass/Vol] 9.3 g/dL Critically low 14.0-18.0 [facility] Comment on above: Performed By: #### C BC ####[facility] Xsfkdeitip[address] [place], [place] [address]Dr. Farhat Leal IG # 0.15 10e3/ul Critically high 0.00-0.03 [facility] Comment on above: Performed By: #### C BC ####[facility] Whfqfnuybn165[address] [place], [place] [address]Dr. Farhat Leal IG % 1.4 % Critically high 0.0-0.5 [facility] Comment on above: Performed By: #### C BC ####[facility] [address]jic[address] [place] [address]Dr. Farhat Leal LYMPH # 0.8 103/ul Critically low 1.2-3.8 [facility] Comment on above: Performed By: #### C BC ####[facility] Ailienlyez[address] [place] [address]Dr. Farhat Leal Lymphocytes/100 WBC (Bld) 7.3 % Critically low 20.5-60.0 [facility] Comment on above: Performed By: #### C BC ####[facility] Wbhxhldfxt[address] [place], [place] [address]DrSkylar Leal MANUAL DIFF REQ NO Normal [facility] Comment on above: Performed By: #### C BC ####[facility] Oifzvsoqfa[address] [place], [place] [address]Dr. Farhat Leal MCH (RBC) [Entitic mass] 29.3 pg Normal 25.9-34.0 [facility] Comment on above: Performed By: #### C BC ####[facility] Pnfkxccvwv[address] [place], [place] [address]Dr. Farhat Leal MCHC (RBC) [Mass/Vol] 31.4 g/dL Normal 29.9-35.2 [facility] Comment on above: Performed By: #### C BC ####[facility] Brzlswipmx[address] [place], [place] [address]Dr. Farhat Leal MCV (RBC) [Entitic vol] 93.4 fL Normal 80.0-94.0 [facility] Comment on above: Performed By: #### C BC ####[facility] Dzszpjawks01[address] [place], [place] [address]DrSkylar Leal MONO # 1.3 103/ul Critically high 0.3-0.8 [facility] Comment on above: Performed By: #### C BC ####[facility] [address]es[address]xbpo[address] [place] [address]Dr. Farhat Leal Monocytes/100 WBC (Bld) 12.3 % Critically high 1.7-12.0 [facility] Comment on above: Performed By: #### C BC ####[facility] [address]jb[address]ql[address] [place] [address]Dr. Farhat Leal NEUT # 8.4 103/ul Critically high 1.4-6.5 [facility] Comment on above: Performed By: #### C BC ####[facility] Ww[address]jpraudv6172 [place] [address]DrSkylar Leal Neutrophils/100 WBC (Bld) 77.4 % Critically high 43.0-75.0 [facility] Comment on above: Performed By: #### C BC ####[facility] Jwkriqbgns88[address] [place], [place] [address]Dr. Farhat Leal Platelet mean volume (Bld) [Entitic vol] 9.8 fL Normal 9.5-13.5 [facility] Comment on above: Performed By: #### C BC ####[facility] Pxeggorggy[address] [place], [place] [address]Dr. Farhat Leal PLT 390 103/ul Normal 150-450 [facility] Comment on above: Performed By: #### C BC ####[facility] Wksjksrssr[address] [place], [place] [address]Dr. Farhat Leal RBC 3.17 106/ul Critically low 4.70-6.10 [facility] Comment on above: Performed By: #### C BC ####[facility] Qupjtpkbwj[address] [place], [place] [address]DrSkylar Leal WBC 10.9 103/ul Normal 4.0-11.0 [facility] Comment on above: Performed By: #### C BC ####[facility] Zvubtsapyx[address] [place], [place] [address]DrSkylar Leal CRPon 11-25-2021 CRP 27.2 mg/dL Critically high <=1.0 [facility] Comment on above: Performed By: #### C MP, BNP, CRP ####[facility] Nirqjkykmv[address] [place], [place] [address]Dr. Farhat Leal PROF 14(COMP METB)on 022 Albumin [Mass/Vol] 1.5 g/dL Critically low 3.4-5.0 [facility] Comment on above: Performed By: #### C MP, BNP, CRP ####[facility] [address] [place] [address]Dr. Farhat Leal Albumin/Globulin [Mass ratio] 0.4 {ratio} Normal [facility] Comment on above: Performed By: #### C MP, BNP, CRP ####[facility] [address]rtngwmc[address] [place] [address]Dr. Farhat Leal ALP [Catalytic activity/Vol] 86 U/L Normal 46-116 [facility] Comment on above: Performed By: #### C MP, BNP, CRP ####[facility] [address]ifovkxxc5[address] [place] [address]Dr. Farhat Leal ALT [Catalytic activity/Vol] 34 U/L Normal 16-63 [facility] Comment on above: Performed By: #### C MP, BNP, CRP ####[facility] E[address]aw[address]nyg[address] [place] [address]Dr. Farhat Leal Anion gap [Moles/Vol] 17.8 mmol/L Normal [facility] Comment on above: Performed By: #### C MP, BNP, CRP ####[facility] Paapphqpcf30[address] [place] [address]Dr. Farhat Leal AST [Catalytic activity/Vol] 48 U/L Critically high 15-37 [facility] Comment on above: Performed By: #### C MP, BNP, CRP ####[facility] Xrxdbgtcvg8068 [place] [address]Dr. Farhat Leal Bilirubin [Mass/Vol] 0.8 mg/dL Normal 0.2-1.0 [facility] Comment on above: Performed By: #### C MP, BNP, CRP ####[facility] Mmtoiyzxga[address] [place] [address]Dr. Farhat Leal Calcium [Mass/Vol] 8.3 mg/dL Critically low 8.5-10.1 [facility] Comment on above: Performed By: #### C MP, BNP, CRP ####[facility] Hzgagorztl3342 [place] [address]Dr. Farhat Leal Chloride [Moles/Vol] 97 mmol/L Critically low 98-107 [facility] Comment on above: Performed By: #### C MP, BNP, CRP ####[facility] Caqpgrlglk15[address] [place] [address]Dr. Farhat Leal CO2 [Moles/Vol] 23.0 mmol/L Normal 21.0-32.0 [facility] Comment on above: Performed By: #### C MP, BNP, CRP ####[facility] Gxagffeoeb[address] [place], [place] [address]Dr. Madelynlorri Elvis Creatinine [Mass/Vol] 1.68 mg/dL Critically high 0.70-1.30 [facility] Comment on above: Performed By: #### C MP, BNP, CRP ####[facility] Quikepqwgy0024[address] [place], [place] [address]Dr. Madelynlorri Elvis EGFR-AF QATARI 48 mL/min/1.73m2 Critically low >=60 [facility] Comment on above: Performed By: #### C MP, BNP, CRP ####[facility] Azwkhputre676[address] [place], [place] [address]Dr. Farhat Elvis EGFR-NON AF QATARI 40 mL/min/1.73m2 Critically low >=60 [facility] Comment on above: Performed By: #### C MP, BNP, CRP ####[facility] Lmaaidqyoi[address] [place], [place] [address]Dr. Farhat Elvis Globulin (S) [Mass/Vol] 3.9 g/dL Normal [facility] Comment on above: Performed By: #### C MP, BNP, CRP ####[facility] Eoyodqzaqq758[address] [place], [place] [address]Dr. Farhat Leal Glucose [Mass/Vol] 282 mg/dL Critically high 74-106 [facility] Comment on above: Performed By: #### C MP, BNP, CRP ####[facility] Vcdgqelkgl84[address] [place], [place] [address]Dr. Farhat Leal Potassium [Moles/Vol] 4.8 mmol/L Normal 3.5-5.1 [facility] Comment on above: Performed By: #### C MP, BNP, CRP ####[facility] Dpfxkrysez[address] [place], [place] [address]Dr. Farhat Leal Protein [Mass/Vol] 5.4 g/dL Critically low 6.4-8.2 [facility] Comment on above: Performed By: #### C MP, BNP, CRP ####[facility] Dtdfmuisdh7467[address] [place], [place] [address]Dr. Farhat Leal Sodium [Moles/Vol] 133 mmol/L Critically low 136-145 [facility] Comment on above: Performed By: #### C MP, BNP, CRP ####[facility] Kaeifkdyzr5434[address] [place], [place] [address]Dr. Farhat Leal Urea nitrogen [Mass/Vol] 40.0 mg/dL Critically high 7.0-18.0 [facility] Comment on above: Performed By: #### C MP, BNP, CRP ####[facility] Tckcvtzhxp880[address] [place], [place] [address]Dr. Farhat Leal Urea nitrogen/Creatinine [Mass ratio] 23.8 mg/mg Normal [facility] Comment on above: Performed By: #### C MP, BNP, CRP ####[facility] Hoeyhjzrub18[address] [place], [place] [address]Dr. Farhat Leal PROTIMEon 11-25-2021 INR Coag (PPP) [Relative time] 1.48 {INR} Normal [facility] Comment on above: Performed By: #### P T ####[facility] Fdtgwqwbnt[address] [place], [place] [address]Dr. Farhat Leal INR GUIDELINES SEE BELOW Normal [facility] Comment on above: Result Comment: MALINA RED INR: 2.0 - 3.0 CONDITIONS NOT LISTED BELOW 2.5 - 3.5 FOR PROSTHETIC HEART VALVE REPLACEMENT 2.5 - 3.5 RECURRENT THROMBOSIS Performed By: #### P T ####[facility] Qxqkwmwaju5[address] [place], [place] [address]Dr. Farhat Leal PT Coag (PPP) [Time] 15.6 s Critically high 9.0-11.6 [facility] Comment on above: Performed By: #### P T ####[facility] Eyjrlccshd329[address] [place], [place] [address]Dr. Farhat Leal SED RATE WESTERGRENon 2021 SED RATE 76 mm/hr Critically high <=20 [facility] Comment on above: Performed By: #### S EDR ####[facility] Jwrclfegjm2432[address] [place], [place] [address]Dr. Farhat Leal BNPon 11-24-2021 Natriuretic peptide B (Bld) [Mass/Vol] 31561.0 pg/mL Critically high <=1,800.0 [facility] Comment on above: Performed By: #### B SHIPPER RECEIVER, CMP, CRP ####[facility] Hazaxzrfxf325[address] [place], [place] [address]Dr. Farhat Leal CBC AUTO DIFFon 11-24-2021 BASO # 0.0 103/ul Normal 0.0-0.1 [facility] Comment on above: Performed By: #### C BC ####[facility] Buptmreqkm[address]24[address] [place], [place] [address]Dr. Madelynlorri Leal Basophils/100 WBC (Bld) 0.3 % Normal 0.2-2.0 [facility] Comment on above: Performed By: #### C BC ####[facility] Fnffwpqgkv[address]14[address] [place], [place] [address]Dr. Farhat Leal EO # 0.2 103/ul Normal 0.0-0.7 [facility] Comment on above: Performed By: #### C BC ####[facility] Ggvhiuywcw139[address] [place], [place] [address]Dr. Madelynlorri Leal Eosinophils/100 WBC (Bld) 1.2 % Normal 0.9-7.0 [facility] Comment on above: Performed By: #### C BC ####[facility] Norrkwfqgd2428[address] [place], [place] [address]Dr. Farhat Leal Erythrocyte distribution width (RBC) [Ratio] 13.5 % Normal 11.0-15.0 [facility] Comment on above: Performed By: #### C BC ####[facility] Rtrhtecjcu6[address] [place] [address]Dr. Farhat Leal Hematocrit (Bld) [Volume fraction] 31.1 % Critically low 42.0-54.0 [facility] Comment on above: Performed By: #### C BC ####[facility] Deqshncaug20[address] [place] [address]Dr. Farhat Leal Hemoglobin (Bld) [Mass/Vol] 10.0 g/dL Critically low 14.0-18.0 [facility] Comment on above: Performed By: #### C BC ####[facility] Zpsznnrnis1418[address] [place], [place] [address]Dr. Farhat Leal IG # 0.13 10e3/ul Critically high 0.00-0.03 [facility] Comment on above: Performed By: #### C BC ####[facility] Yskargxykp1026[address] [place], [place] [address]DrSkylar Leal IG % 1.0 % Critically high 0.0-0.5 [facility] Comment on above: Performed By: #### C BC ####[facility] Exsmfjoids[address] [place], [place] [address]DrSkylar Leal LYMPH # 0.7 103/ul Critically low 1.2-3.8 [facility] Comment on above: Performed By: #### C BC ####[facility] Kgdqwqdqff460[address] [place], [place] [address]DrSkylar Leal Lymphocytes/100 WBC (Bld) 4.9 % Critically low 20.5-60.0 [facility] Comment on above: Performed By: #### C BC ####[facility] Vuprrxgyjv9667[address] [place], [place] [address]DrSkylar Leal MANUAL DIFF REQ NO Normal [facility] Comment on above: Performed By: #### C BC ####[facility] Jtrihxqgwg859[address] [place], [place] [address]DrSkylar Leal MCH (RBC) [Entitic mass] 29.6 pg Normal 25.9-34.0 [facility] Comment on above: Performed By: #### C BC ####[facility] [address]qpjdt[address] [place] [id number]. Farhat Elvis MCHC (RBC) [Mass/Vol] 32.2 g/dL Normal 29.9-35.2 [facility] Comment on above: Performed By: #### C BC ####[facility] Eujturewxl99[address] [place] [address]DrSkylar Leal MCV (RBC) [Entitic vol] 92.0 fL Normal 80.0-94.0 [facility] Comment on above: Performed By: #### C BC ####[facility] Ourfbkelew0712 [place] [address]DrSkylar Leal MONO # 1.3 103/ul Critically high 0.3-0.8 [facility] Comment on above: Performed By: #### C BC ####[facility] Czeoneyhnz5[address] [place], [place] [address]DrSkylar Leal Monocytes/100 WBC (Bld) 9.6 % Normal 1.7-12.0 [facility] Comment on above: Performed By: #### C BC ####[facility] Dojujkctfb[address] [place], [place] [address]DrSkylar Leal NEUT # 11.2 103/ul Critically high 1.4-6.5 [facility] Comment on above: Performed By: #### C BC ####[facility] Mvsahohhac30[address] [place], [place] [address]DrSkylar Leal Neutrophils/100 WBC (Bld) 83.0 % Critically high 43.0-75.0 [facility] Comment on above: Performed By: #### C BC ####[facility] Afzj[address]zhv[address] [place], [place] [address]DrSkylar Leal Platelet mean volume (Bld) [Entitic vol] 9.5 fL Normal 9.5-13.5 [facility] Comment on above: Performed By: #### C BC ####[facility] Hegavgclew[address] [place], [place] [address]DrSkylar Leal PLT 395 103/ul Normal 150-450 [facility] Comment on above: Performed By: #### C BC ####[facility] Kvgjruatio[address] [place] [id number]. Farhat Leal RBC 3.38 106/ul Critically low 4.70-6.10 [facility] Comment on above: Performed By: #### C BC ####[facility] Fxfltnajok85[address] [place] [address]Dr. Farhat Leal WBC 13.4 103/ul Critically high 4.0-11.0 [facility] Comment on above: Performed By: #### C BC ####[facility] Aeslvybmxj[address] [place] [address]Dr. Farhat Leal CRPon 11-24-2021 CRP 27.8 mg/dL Critically high <=1.0 [facility] Comment on above: Performed By: #### B SHIPPER RECEIVER, CMP, CRP ####[facility] Orrzjmbopw65[address] [place] [phone]. Farhat Leal CULTURE ANAEROBICon 11-25-19 22 CULTURE ANAEROBIC Culture Observations : NO GROWTH OF ANAEROBES AT 72 HOURS. [facility] Comment on above: Performed By: #### A NACX ####[facility] Wq[address]ylxfwk9[address] [place] [id number]. Farhat Leal CULTURE ANAEROBIC Culture Observations : NO GROWTH OF ANAEROBES AT 72 HOURS. Normal [facility] Comment on above: Performed By: #### A NACX ####[facility] G[address]maaiwep20[address] [place] [id number]. Farhat Leal CULTURE ANAEROBIC Culture Observations : No growth of anaerobes at 72 hours. [facility] Comment on above: Performed By: #### A NACX ####[facility] Srjyjlfshz6275 [place] [phone]. Farhat Leal CULTURE ANAEROBIC Culture Observations : No growth of anaerobes at 72 hours. [facility] Comment on above: Performed By: #### A NACX ####[facility] Eqwrdkgdwt[address] [place] [phone]. Farhat Leal CULTURE URINEon 10-10-2022 CULTURE URINE Culture Observations : NO GROWTH. Normal [facility] Comment on above: Performed By: #### U RCX ####[facility] Juaoulopzk[address] [place], [place] [address]Dr. Farhat Leal ECHOCARDIO M/2D COMPLETEon 1 ECHOCARDIO M/2D COMPLETE Normal [facility] ER URINE PROFILEon Bilirubin Ql (U) Negative Normal NEGATIVE [facility] Comment on above: Performed By: #### E RUR ####[facility] Tcvetygqhp7640[address] [place], [place] [address]Dr. Farhat Leal Clarity (U) CLEAR Normal CLEAR [facility] Comment on above: Performed By: #### E RUR ####[facility] Gbteilvwfq[address] [place], [place] [address]Dr. Farhat Leal Color (U) YELLOW Normal YELLOW [facility] Comment on above: Performed By: #### E RUR ####[facility] Ccnzypuhrj02[address] [place], [place] [address]Dr. Farhat Leal ERUAHD A micrscopic examination will be performed if indicated. Normal [facility] Comment on above: Performed By: #### E RUR ####[facility] Jsvjzegvnp[address] [place], [place] [address]Dr. Farhat Leal Glucose Ql (U) Negative Normal NEGATIVE [facility] Comment on above: Performed By: #### E RUR ####[facility] Qmrtezvzjb53[address] [place], [place] [address]Dr. Farhat Leal Hemoglobin Ql (U) Negative Normal NEGATIVE [facility] Comment on above: Performed By: #### E RUR ####[facility] Fpzbhaydky[address] [place], [place] [address]Dr. Farhat Leal Ketones Ql (U) TRACE Abnormal NEGATIVE [facility] Comment on above: Performed By: #### E RUR ####[facility] Wxdsgpmtkl8[address] [place], [place] [address]Dr. Farhat Leal LEUKOCYTES Negative Normal NEGATIVE [facility] Comment on above: Performed By: #### E RUR ####[facility] Kztlndcisf475[address] [place] [address]Dr. Farhat Leal Nitrite Ql (U) Negative Normal NEGATIVE [facility] Comment on above: Performed By: #### E RUR ####[facility] Lrsykytcdc[address] [place], [place] [address]Dr. Farhat Leal pH (U) 5.5 [pH] Normal 5-9 [facility] Comment on above: Performed By: #### E RUR ####[facility] Vrerchwlfm[address] [place], [place] [address]Dr. Farhat Leal SPEC GRAVITY 1.015 Normal 1.005-<=1.[address] [place] [address] Comment on above: Performed By: #### E RUR ####[facility] Udhptkexif[address] [place], [place] [address]Dr. Farhat Leal UA PROTEIN Negative Normal NEGATIVE/ TRACE [facility] Comment on above: Performed By: #### E RUR ####[facility] Imxfhysllk96[address] [place], [place] [address]Dr. Farhat Leal UR MICRO IND NOT INDICATED Normal [facility] Comment on above: Performed By: #### E RUR ####[facility] Evebnngifu339[address] [place], [place] [address]Dr. Farhat Leal Urobilinogen Qn (U) 0.2 {Boyd'U}/dL Normal 0.2 - 1. 0 [facility] Comment on above: Performed By: #### E RUR ####[facility] Gadfcrtakk45[address] [place], [place] [address]Dr. Farhat Leal GRAM STAINon 11-24-2021 DIPHTHEROIDS Normal [facility] Comment on above: Performed By: #### G STAIN ####[facility] Zxdkfmvhpf[address] [place], [place] [address]Dr. Farhat Leal EPITHELIALS Normal [facility] Comment on above: Performed By: #### G STAIN ####[facility] Xtdrmbxseb[address] [place], [place] [address]Dr. Farhat Leal FUNGAL ELEMENTS Normal [facility] Comment on above: Performed By: #### G STAIN ####[facility] [address]qbpvcs20[address] [place] [address]Dr. Farhat Leal GRAM NEG BACILLI Normal [facility] Comment on above: Performed By: #### G STAIN ####[facility] [address]duqonxkvt96[address] [place] [address]Dr. Farhat Leal GRAM NEG DIPPLOCOCCI Normal [facility] Comment on above: Performed By: #### G STAIN ####[facility] [address]km[address] [place] [address]Dr. Farhat Leal GRAM POS BACILLI Normal [facility] Comment on above: Performed By: #### G STAIN ####[facility] Mjgbwxtump[address] [place], [place] [address]Dr. Farhat Leal GRAM POSITIVE COCCI FEW Normal [facility] Comment on above: Performed By: #### G STAIN ####[facility] Exivxzxbbu464[address] [place], [place] [address]Dr. Farhat Leal GRAM STAIN SOURCE RT ACHILLES TENDON Normal [facility] Comment on above: Performed By: #### G STAIN ####[facility] Tjisnpwjoc80[address] [place], [place] [address]Dr. Farhat Leal GS_DIPTH Normal [facility] Comment on above: Performed By: #### G STAIN ####[facility] Tlbixmvkpp[address] [place], [place] [address]Dr. Farhat Leal WBC RARE Normal [facility] Comment on above: Performed By: #### G STAIN ####[facility] Rljjqhzzqo84[address] [place], [place] [address]Dr. Farhat eLal COMMENTS NO ORGANISMS OBSERVED Normal [facility] Comment on above: Performed By: #### G STAIN ####[facility] Nafuuqnvlc[address] [place], [place] [address]Dr. Farhat Leal DIPHTHEROIDS Normal [facility] Comment on above: Performed By: #### G STAIN ####[facility] Pwvumnnnsf[address] [place], [place] [address]Dr. Farhat Leal EPITHELIALS Normal [facility] Comment on above: Performed By: #### G STAIN ####[facility] Fkfusxcleg285[address] [place], [place] [address]Dr. Farhat Leal FUNGAL ELEMENTS Normal [facility] Comment on above: Performed By: #### G STAIN ####[facility] Icfrdpoicx10[address] [place] [address]Dr. Farhat Leal GRAM NEG BACILLI Normal [facility] Comment on above: Performed By: #### G STAIN ####[facility] Qbegbinxsq17[address] [place] [address]Dr. Farhat Leal GRAM NEG DIPPLOCOCCI Normal [facility] Comment on above: Performed By: #### G STAIN ####[facility] Dnpwgjptfw1480[address] [place], [place] [address]Dr. Farhat Leal GRAM POS BACILLI Normal [facility] Comment on above: Performed By: #### G STAIN ####[facility] Krentknzqh5836[address] [place], [place] [address]Dr. Farhat Leal GRAM POSITIVE COCCI Normal [facility] Comment on above: Performed By: #### G STAIN ####[facility] Bcnngsauzp529[address] [place], [place] [address]Dr. Farhat Leal GRAM STAIN SOURCE RT CALCANEOUS Normal [facility] Comment on above: Performed By: #### G STAIN ####[facility] Aqjinykknt[address] [place], [place] [address]Dr. Farhat Leal GS_DIPTH Normal [facility] Comment on above: Performed By: #### G STAIN ####[facility] Uywlhucyct30[address] [place], [place] [address]Dr. Farhat Leal WBC RARE Normal [facility] Comment on above: Performed By: #### G STAIN ####[facility] Avegbgjacv[address] [place] [address]Dr. Farhat Leal DIPHTHEROIDS Normal [facility] Comment on above: Performed By: #### G STAIN ####[facility] Nifaxvvmcb94[address] [place], [place] [address]Dr. Farhat Leal EPITHELIALS Normal [facility] Comment on above: Performed By: #### G STAIN ####[facility] Wujkdhfdyf346[address] [place], [place] [address]Dr. Farhat Leal FUNGAL ELEMENTS Normal [facility] Comment on above: Performed By: #### G STAIN ####[facility] Tgzuuzuwqs[address] [place] [address]Dr. Farhat Leal GRAM NEG BACILLI FEW Normal [facility] Comment on above: Performed By: #### G STAIN ####[facility] Zjyuvubajz24[address] [place] [address]Dr. Farhat Leal GRAM NEG DIPPLOCOCCI Normal [facility] Comment on above: Performed By: #### G STAIN ####[facility] Qgxrxfvfet69[address] [place] [address]Dr. Farhat Leal GRAM POS BACILLI Normal [facility] Comment on above: Performed By: #### G STAIN ####[facility] Raplvvymmq005[address] [place], [place] [address]Dr. Farhat Leal GRAM POSITIVE COCCI FEW Normal [facility] Comment on above: Performed By: #### G STAIN ####[facility] Wzqiuiawgo187[address] [place], [place] [address]Dr. Farhat Leal GRAM STAIN SOURCE #2 Rt foot abscess Normal [facility] Comment on above: Performed By: #### G STAIN ####[facility] Pgbbeypdrg7847[address] [place], [place] [address]Dr. Farhat Leal GS_DIPTH Normal [facility] Comment on above: Performed By: #### G STAIN ####[facility] Gzjicbtcix117[address] [place], [place] [address]Dr. Farhat Leal WBC RARE Normal [facility] Comment on above: Performed By: #### G STAIN ####[facility] Enuyxjkyaz[address] [place] [address]Dr. Farhat Leal DIPHTHEROIDS Normal [facility] Comment on above: Performed By: #### G STAIN ####[facility] Aqylfnppzq409[address] [place], [place] [address]Dr. Farhat Leal EPITHELIALS Normal [facility] Comment on above: Performed By: #### G STAIN ####[facility] Giwpukcyzi59[address] [place] [address]Dr. Farhat Leal FUNGAL ELEMENTS Normal [facility] Comment on above: Performed By: #### G STAIN ####[facility] [address]ix[address]qwzqc[address] [place] [id number]. Farhat Leal GRAM NEG BACILLI FEW Normal [facility] Comment on above: Performed By: #### G STAIN ####[facility] Dzbkexakvs[address] [place] [address]Dr. Farhat Leal GRAM NEG DIPPLOCOCCI Normal [facility] Comment on above: Performed By: #### G STAIN ####[facility] Gjdhsgqiuq95[address] [place] [address]Dr. Farhat Leal GRAM POS BACILLI Normal [facility] Comment on above: Performed By: #### G STAIN ####[facility] Exvntczboq20[address] [place] [address]Dr. Farhat Leal GRAM POSITIVE COCCI FEW Normal [facility] Comment on above: Performed By: #### G STAIN ####[facility] Vrhyvxfyev365[address] [place], [place] [address]Dr. Farhat Leal GRAM STAIN SOURCE #1 Rt foot abscess Normal [facility] Comment on above: Performed By: #### G STAIN ####[facility] Nwnxjgsthi0[address] [place] [address]Dr. Farhat Leal GS_DIPTH Normal [facility] Comment on above: Performed By: #### G STAIN ####[facility] Fpjsjftcjo26[address] [place] [address]Dr. Farhat Leal WBC NONE SEEN Normal [facility] Comment on above: Performed By: #### G STAIN ####[facility] Vtlyuznwct8[address] [place], [place] [address]Dr. Farhat Leal POINT OF CARE GLUCOSEon 10- 0-2021 Glucose [Mass/Vol] 331 mg/dL Critically high 74-106 [facility] Comment on above: Performed By: #### P OCGLUC ####[facility] Ajyrpgtksb9435[address] [place], [place] [address]Dr. Farhat Leal Glucose [Mass/Vol] 236 mg/dL Critically high 74-106 [facility] Comment on above: Performed By: #### P OCGLUC ####[facility] Penncaraqc[address] [place], [place] [address]Dr. Farhat Leal PROF 14(COMP METB)on 022 Albumin [Mass/Vol] 1.6 g/dL Critically low 3.4-5.0 [facility] Comment on above: Performed By: #### B SHIPPER RECEIVER, CMP, CRP ####[facility] Agzujbmzhx35[address] [place] [address]Dr. Farhat Leal Albumin/Globulin [Mass ratio] 0.4 {ratio} Normal [facility] Comment on above: Performed By: #### B SHIPPER RECEIVER, CMP, CRP ####[facility] Azjpyskhew43[address] [place] [address]Dr. Farhat Leal ALP [Catalytic activity/Vol] 94 U/L Normal 46-116 [facility] Comment on above: Performed By: #### B SHIPPER RECEIVER, CMP, CRP ####[facility] Pakrqpraak85[address] [place] [address]Dr. Farhat Leal ALT [Catalytic activity/Vol] 49 U/L Normal 16-63 [facility] Comment on above: Performed By: #### B SHIPPER RECEIVER, CMP, CRP ####[facility] Xugimyzcqz5[address] [place] [address]Dr. Farhat Leal Anion gap [Moles/Vol] 12.5 mmol/L Normal [facility] Comment on above: Performed By: #### B SHIPPER RECEIVER, CMP, CRP ####[facility] Cwjqznpsvu04[address] [place] [address]Dr. Farhat Leal AST [Catalytic activity/Vol] 102 U/L Critically high 15-37 [facility] Comment on above: Performed By: #### B SHIPPER RECEIVER, CMP, CRP ####[facility] Lhakhxmpqe039[address] [place] [address]Dr. Farhat Leal Bilirubin [Mass/Vol] 0.8 mg/dL Normal 0.2-1.0 [facility] Comment on above: Performed By: #### B SHIPPER RECEIVER, CMP, CRP ####[facility] Scmgwfucmf9236 [place] [address]Dr. Farhat Leal Calcium [Mass/Vol] 8.4 mg/dL Critically low 8.5-10.1 [facility] Comment on above: Performed By: #### B SHIPPER RECEIVER, CMP, CRP ####[facility] Gcbsslldxy33[address] [place] [address]Dr. Farhat Leal Chloride [Moles/Vol] 96 mmol/L Critically low 98-107 [facility] Comment on above: Performed By: #### B SHIPPER RECEIVER, CMP, CRP ####[facility] Swoydqmcna76[address] [place] [address]Dr. Farhat Leal CO2 [Moles/Vol] 24.8 mmol/L Normal 21.0-32.0 [facility] Comment on above: Performed By: #### B SHIPPER RECEIVER, CMP, CRP ####[facility] Zjzgxmyctt[address] [place], [place] [address]Dr. Farhat Leal Creatinine [Mass/Vol] 1.36 mg/dL Critically high 0.70-1.30 [facility] Comment on above: Performed By: #### B SHIPPER RECEIVER, CMP, CRP ####[facility] Isqowlvltj226[address] [place], [place] [address]Dr. Madelynlorri Elvis EGFR-AF QATARI >60 Normal >=60 [facility] Comment on above: Performed By: #### B SHIPPER RECEIVER, CMP, CRP ####[facility] Ulcxcakymc0350[address] [place], [place] [address]Dr. Farhat Leal EGFR-NON AF QATARI 51 mL/min/1.73m2 Critically low >=60 [facility] Comment on above: Performed By: #### B SHIPPER RECEIVER, CMP, CRP ####[facility] Lxwzdenhcx6055[address] [place], [place] [address]Dr. Farhat Leal Globulin (S) [Mass/Vol] 4.1 g/dL Normal [facility] Comment on above: Performed By: #### B SHIPPER RECEIVER, CMP, CRP ####[facility] Dlvkeaskjo380[address] [place] [address]Dr. Farhat Leal Glucose [Mass/Vol] 204 mg/dL Critically high 74-106 T [facility] Comment on above: Performed By: #### B SHIPPER RECEIVER, CMP, CRP ####[facility] Oyinrzezfb0399[address] [place], [place] [address]Dr. Farhat Leal Potassium [Moles/Vol] 4.3 mmol/L Normal 3.5-5.1 [facility] Comment on above: Performed By: #### B SHIPPER RECEIVER, CMP, CRP ####[facility] Pahttztkrm4325[address] [place], [place] [address]Dr. Farhat Leal Protein [Mass/Vol] 5.7 g/dL Critically low 6.4-8.2 [facility] Comment on above: Performed By: #### B SHIPPER RECEIVER, CMP, CRP ####[facility] Sisjbqswji614[address] [place], [place] [address]Dr. Farhat Leal Sodium [Moles/Vol] 129 mmol/L Critically low 136-145 [facility] Comment on above: Performed By: #### B SHIPPER RECEIVER, CMP, CRP ####[facility] Ooyewdetop914[address] [place], [place] [address]Dr. Farhat Leal Urea nitrogen [Mass/Vol] 41.0 mg/dL Critically high 7.0-18.0 [facility] Comment on above: Performed By: #### B SHIPPER RECEIVER, CMP, CRP ####[facility] Baaxscwuvg1877[address] [place], [place] [address]Dr. Farhat Leal Urea nitrogen/Creatinine [Mass ratio] 30.1 mg/mg Normal [facility] Comment on above: Performed By: #### B SHIPPER RECEIVER, CMP, CRP ####[facility] Gcdqyzunjf724[address] [place], [place] [address]Dr. Farhat Leal PROTIMEon 11-24-2021 INR Coag (PPP) [Relative time] 2.20 {INR} Normal [facility] Comment on above: Performed By: #### P T ####[facility] Wpxvqqvmio860[address] [place], [place] [address]Dr. Farhat Leal INR GUIDELINES SEE BELOW Normal [facility] Comment on above: Result Comment: MALINA RED INR: 2.0 - 3.0 CONDITIONS NOT LISTED BELOW 2.5 - 3.5 FOR PROSTHETIC HEART VALVE REPLACEMENT 2.5 - 3.5 RECURRENT THROMBOSIS Performed By: #### P T ####[facility] Eczvsospyv542[address] [place], [place] [address]Dr. Farhat Leal PT Coag (PPP) [Time] 22.6 s Critically high 9.0-11.6 [facility] Comment on above: Performed By: #### P T ####[facility] Kfuivziyun3623[address] [place], [place] [address]Dr. Farhat Leal [facility] SED RATE 80 mm/hr Critically high <=20 [facility] Comment on above: Performed By: #### S EDR ####[facility] Thfwxniuaq094[address] [place], [place] [address]Dr. Farhat Leal BLOOD CULTURE ID PANELon A. baumannii Not detected Normal NOT DETECTED [facility] Comment on above: Performed By: #### B CID2 ####[facility] Paefizvrgv624[address] [place], [place] [address]Dr. Farhat Leal Bacteriodes fragilis Not detected Normal NOT DETECTED [facility] Comment on above: Performed By: #### B CID2 ####[facility] Jpryecpfql2765[address] [place], [place] [address]Dr. Farhat Leal BCID CONTROLS PASSED Normal [facility] Comment on above: Performed By: #### B CID2 ####[facility] Zewmiiixxa364[address] [place], [place] [address]Dr. Farhat Leal BCIDBTHD BLOOD CULTURE BOTTLE INFORMATION Normal [facility] Comment on above: Performed By: #### B CID2 ####[facility] Mfitfqudiu201[address] [place], [place] [address]Dr. Farhat Leal BCIDHD1 ANTIMICROBIAL RESISTANCE GENES Normal [facility] Comment on above: Performed By: #### B CID2 ####[facility] Vlhmlsdljw266[address] [place], [place] [address]Dr. Farhat Leal BCIDHD2 SEE BELOW Normal [facility] Comment on above: Result Comment: Note : Antimicrobial resitance can occur via multiple mechanisms. A Not Detected result for the [employer] antomicrobial resistance gene assays does not indicate antimicrobial susceptibility. Subculturing is required for species identification and susceptibility testing of isolates. Performed By: #### B CID2 ####[facility] Pvotthxngy[address] [place], [place] [address]Dr. Farhat Leal BCIDHD3 Positive Normal [facility] Comment on above: Performed By: #### B CID2 ####[facility] Mlqxkvopnh55[address] [place] [address]Dr. Yilorri Leal BCIDHD4 Negative Normal [facility] Comment on above: Performed By: #### B CID2 ####[facility] Ftesmvqhex4214 [place] [address]Dr. Farhat Leal BCIDHD5 YEAST Normal [facility] Comment on above: Performed By: #### B CID2 ####[facility] Fevwaeekmm95[address] [place] [address]Dr. Farhat Leal Bottle Set: Set 1 Normal [facility] Comment on above: Performed By: #### B CID2 ####[facility] Yfxctpwxwv459[address] [place], [place] [address]Dr. Farhat Leal Bottle: Aerobic Normal [facility] Comment on above: Performed By: #### B CID2 ####[facility] Csqrwsqtxa159[address] [place], [place] [address]Dr. Yilorri Leal C. neoformans/gattii Not detected Normal NOT DETECTED [facility] Comment on above: Performed By: #### B CID2 ####[facility] Jiaeryzrjl774[address] [place], [place] [address]Dr. Yilorri [facility] Disha albicans Not detected Normal NOT DETECTED [facility] Comment on above: Performed By: #### B CID2 ####[facility] Lwgwtnntad349[address] [place], [place] [address]Dr. Yilorri Leal Disha auris Not detected Normal NOT DETECTED [facility] Comment on above: Performed By: #### B CID2 ####[facility] Pebhrxldra06[address] [place] [address]Dr. Yilorri Leal Disha glabrata Not detected Normal NOT DETECTED [facility] Comment on above: Performed By: #### B CID2 ####[facility] Mluqbutlqx5722 [place] [address]Dr. Yilorri Leal Disha Krusei Not detected Normal NOT DETECTED [facility] Comment on above: Performed By: #### B CID2 ####[facility] Pkcotdakri35[address] [place] [address]Dr. Yilan Leal Disha Parapsilosis Not detected Normal NOT DETECTED [facility] Comment on above: Performed By: #### B CID2 ####[facility] Umumijxefe230[address] [place], [place] [address]Dr. Yilan Leal Disha Tropicalis Not detected Normal NOT DETECTED [facility] Comment on above: Performed By: #### B CID2 ####[facility] Cajegbvmzy697[address] [place], [place] [address]Dr. Farhat Leal CTX-M Resistant Gene Not Applicable Normal NOT DETECTE D [facility] Comment on above: Performed By: #### B CID2 ####[facility] Tmhunmskyq333[address] [place], [place] [address]Dr. Yilorri Leal E. Cloacae complex Not detected Normal NOT DETECTED [facility] Comment on above: Performed By: #### B CID2 ####[facility] Syhhgiarkq4080[address] [place], [place] [address]Dr. Yilan Leal E. faecalis Not detected Normal NOT DETECTED [facility] Comment on above: Performed By: #### B CID2 ####[facility] Vanxtaupoc500[address] [place], [place] [address]Dr. Farhat Leal E. faecium Not detected Normal NOT DETECTED [facility] Comment on above: Performed By: #### B CID2 ####[facility] Zhnmnpxvrp220[address] [place], [place] [address]Dr. Yilan Leal Enterobacteriaceae Not detected Normal NOT DETECTED [facility] Comment on above: Performed By: #### B CID2 ####[facility] Hmxwnjluif833[address] [place], [place] [address]Dr. Yilan Leal Escherichia coli Not detected Normal NOT DETECTED [facility] Comment on above: Performed By: #### B CID2 ####[facility] Ccngmkqroi0117[address] [place], [place] [address]Dr. Yilan Leal H. influenzae Not detected Normal NOT DETECTED [facility] Comment on above: Performed By: #### B CID2 ####[facility] Qtpqhrejuv4021 [place] [address]Dr. Farhat Leal IMP Resistant Gene Not Applicable Normal NOT DETECTED [facility] Comment on above: Performed By: #### B CID2 ####[facility] Ggixkhlaom149[address] [place], [place] [address]Dr. Farhat Leal K. oxytoca Not detected Normal NOT DETECTED [facility] Comment on above: Performed By: #### B CID2 ####[facility] Dwjnbgafac3844[address] [place], [place] [address]Dr. Farhat Leal K. pneumoniae Not detected Normal NOT DETECTED [facility] Comment on above: Performed By: #### B CID2 ####[facility] Epdlffvyfu465[address] [place], [place] [address]Dr. Farhat Leal Klebsiella aerogenes Not detected Normal NOT DETECTED [facility] Comment on above: Performed By: #### B CID2 ####[facility] Uwwczqjwre080[address] [place], [place] [address]Dr. Farhat Leal KPC Resistant Gene Not Applicable Normal NOT DETECTED [facility] Comment on above: Performed By: #### B CID2 ####[facility] Ynxsabifju808[address] [place], [place] [address]Dr. Farhat Leal List. monocytogenes Not detected Normal NOT DETECTED [facility] Comment on above: Performed By: #### B CID2 ####[facility] Jxfmcppcgf3035[address] [place], [place] [address]Dr. Farhat Leal Mcr-1 Resistant Gene Not Applicable Normal NOT DETECTE D [facility] Comment on above: Performed By: #### B CID2 ####[facility] Zvpxlzsjfz2[address] [place], [place] [address]Dr. Farhat Leal mecA/C Not Applicable Normal NOT DETECTED [facility] Comment on above: Performed By: #### B CID2 ####[facility] Lpvdjyzlpp0904[address] [place], [place] [address]Dr. Farhat Leal mecA/C MREJ Detected Abnormal NOT DETECTED [facility] Comment on above: Performed By: #### B CID2 ####[facility] Pbmrfkactw1350[address] [place], [place] [address]Dr. Farhat Leal N. meningitidis Not detected Normal NOT DETECTED [facility] Comment on above: Performed By: #### B CID2 ####[facility] Cymrmlhxjf280[address] [place], [place] [address]Dr. Farhat Leal NDM Resistant Gene Not Applicable Normal NOT DETECTED [facility] Comment on above: Performed By: #### B CID2 ####[facility] Qevnhuwdvm34119[address] [place], [place] [address]Dr. Farhat Leal Oxa-48-like Not Applicable Normal NOT DETECTED [facility] Comment on above: Performed By: #### B CID2 ####[facility] Hunljnddej399[address] [place], [place] [address]Dr. Farhat Leal Proteus Not detected Normal NOT DETECTED [facility] Comment on above: Performed By: #### B CID2 ####[facility] Nujcefczog60[address] [place], [place] [address]Dr. Farhat Leal Pseud. aeruginosa Not detected Normal NOT DETECTED [facility] Comment on above: Performed By: #### B CID2 ####[facility] Aorpkwotma326[address] [place], [place] [address]Dr. Farhat Leal S. maltophilia Not detected Normal NOT DETECTED [facility] Comment on above: Performed By: #### B CID2 ####[facility] Gfzxtnzrjy9970[address] [place], [place] [address]Dr. Farhat Leal Salmonella Not detected Normal NOT DETECTED [facility] Comment on above: Performed By: #### B CID2 ####[facility] Mixrzcllze358[address] [place], [place] [address]Dr. Farhat Leal Seratia marcescens Not detected Normal NOT DETECTED [facility] Comment on above: Performed By: #### B CID2 ####[facility] Rcrmqquweq[address] [place], [place] [address]Dr. Farhat Leal Site: Rt Hand Normal [facility] Comment on above: Performed By: #### B CID2 ####[facility] Sljdnpltdr[address] [place], [place] [address]Dr. Farhat Leal Staph. aureus Detected Abnormal NOT DETECTED [facility] Comment on above: Performed By: #### B CID2 ####[facility] Ltbeicsrbp38[address] [place] [address]Dr. Farhat Leal Staph. epidermidis Not detected Normal NOT DETECTED [facility] Comment on above: Performed By: #### B CID2 ####[facility] Egtvhoklxy9[address] [place], [place] [address]Dr. Farhat Leal Staph. lugdunensis Not detected Normal NOT DETECTED [facility] Comment on above: Performed By: #### B CID2 ####[facility] Rdoxwjakta312[address] [place], [place] [address]Dr. Farhat Leal Staphylococcus Detected Abnormal NOT DETECTED [facility] Comment on above: Performed By: #### B CID2 ####[facility] Zwtqjjwccj[address] [place], [place] [address]Dr. Farhat Leal Strep. agalactiae Not detected Normal NOT DETECTED [facility] Comment on above: Performed By: #### B CID2 ####[facility] Bkomndbdaz[address] [place], [place] [address]Dr. Farhat Leal Strep. pneumoniae Not detected Normal NOT DETECTED [facility] Comment on above: Performed By: #### B CID2 ####[facility] Iycmeyaxgz[address] [place], [place] [address]Dr. Madelynlorri Leal Strep. pyogenes Not detected Normal NOT DETECTED [facility] Comment on above: Performed By: #### B CID2 ####[facility] Hfrnmgnbrz[address] [place], [place] [address]Dr. Farhat Leal Streptococcus Not detected Normal NOT DETECTED [facility] Comment on above: Performed By: #### B CID2 ####[facility] Hyhysct[address] [place], [place] [address]Dr. Farhat Leal Teodoro/B Resist. Gene Not Applicable Normal NOT DETECTED [facility] Comment on above: Performed By: #### B CID2 ####[facility] Rnehutiagb[address] [place], [place] [address]Dr. Farhat Leal VIM Resistant Gene Not Applicable Normal NOT DETECTED [facility] Comment on above: Performed By: #### B CID2 ####[facility] Smeafezoei[address] [place] [address]Dr. Farhat Leal BNPon 11-23-2021 Natriuretic peptide B (Bld) [Mass/Vol] 59930.0 pg/mL Critically high <=1,800.0 [facility] Comment on above: Performed By: #### C MP, CMADM, BNP ####[facility] Yrgdkluunc[address] [place] [address]Dr. Farhat Leal CARDIAC AMANDA ADMITon 022 CK [Catalytic activity/Vol] 41 U/L Normal 39-308 [facility] Comment on above: Performed By: #### C MP, CMADM, BNP ####[facility] Damccnpxhy[address] [place] [address]Dr. Farhat Leal CK.MB [Mass/Vol] 0.98 ng/mL Normal <=3.60 [facility] [place] [facility] Comment on above: Performed By: #### C MP, CMADM, BNP ####[facility] Fjnsvpfvld[address] [place], [place] [address]Dr. Farhat Leal HSTROP 30.1 pg/mL Normal 4.0-76.1 [facility] Comment on above: Result Comment: CUT- OFF POINTS HAVE BEEN ESTABLISHED BASED ON THE FOURTH UNIVERSAL DEFINITIONS OF MYOCARDIALINFARCTION. THE UPPER REFERENCE LIMIT (URL) OF TROPONIN, DEFINED THE 99TH PERCENTILE OFcTnI DISTRIBUTION IN A REFERENCE POPULATION, HAS BEEN CONFIRMED THE DECISION THRESHOLDFOR ND DIAGNOSIS. Performed By: #### C MP, CMADM, BNP ####[facility] Vllcundibb[address] [place] [address]Dr. Farhat Leal VALERIA 160 ng/mL Critically high 16-96 [facility] Comment on above: Performed By: #### C MP, CMADM, BNP ####[facility] [address]zzdhuwjjz[address] [place] [address]Dr. Farhat Leal CBC AUTO DIFFon 11-23-2021 BASO # 0.0 103/ul Normal 0.0-0.1 [facility] Comment on above: Performed By: #### C BC ####[facility] Euksvsjmlz[address] [place] [address]Dr. Farhat Leal Basophils/100 WBC (Bld) 0.2 % Normal 0.2-2.0 [facility] Comment on above: Performed By: #### C BC ####[facility] Dwgzslkmim[address] [place], [place] [address]Dr. Farhat Leal EO # 0.0 103/ul Normal 0.0-0.7 [facility] Comment on above: Performed By: #### C BC ####[facility] Ppvqghgnbe[address] [place], [place] [address]Dr. Farhat Leal Eosinophils/100 WBC (Bld) 0.1 % Critically low 0.9-7.0 [facility] Comment on above: Performed By: #### C BC ####[facility] Cnajexibxj[address] [place], [place] [address]Dr. Farhat Leal Erythrocyte distribution width (RBC) [Ratio] 13.4 % Normal 11.0-15.0 [facility] Comment on above: Performed By: #### C BC ####[facility] Xylurkmhcz[address] [place], [place] [address]Dr. Farhat Leal Hematocrit (Bld) [Volume fraction] 31.6 % Critically low 42.0-54.0 [facility] Comment on above: Performed By: #### C BC ####[facility] Oyvytagixa[address] [place], [place] [address]Dr. Farhat Leal Hemoglobin (Bld) [Mass/Vol] 10.4 g/dL Critically low 14.0-18.0 [facility] Comment on above: Performed By: #### C BC ####[facility] Oxomlqyemg[address] [place], [place] [address]Dr. Farhat Leal IG # 0.11 10e3/ul Critically high 0.00-0.03 [facility] Comment on above: Performed By: #### C BC ####[facility] Xozqylpyoo[address] [place], [place] [address]Dr. Farhat Leal IG % 0.7 % Critically high 0.0-0.5 [facility] Comment on above: Performed By: #### C BC ####[facility] Czmtvuhnmn[address] [place], [place] [address]Ic. Farhat Elvis LYMPH # 0.5 103/ul Critically low 1.2-3.8 [facility] Comment on above: Performed By: #### C BC ####[facility] Iqzozdqkte3615 [place], [place] [address]Ed. Farhat Elvis Lymphocytes/100 WBC (Bld) 2.8 % Critically low 20.5-60.0 [facility] Comment on above: Performed By: #### C BC ####[facility] [address]iincrjza[address] [place] [address]Dr. Madelynlorri Leal MANUAL DIFF REQ NO Normal [facility] Comment on above: Performed By: #### C BC ####[facility] Bfarhhgvwk39[address] [place] [address]Dr. Farhat Elvis MCH (RBC) [Entitic mass] 29.8 pg Normal 25.9-34.0 [facility] Comment on above: Performed By: #### C BC ####[facility] Smpzjlfdcl7475 [place] [address]Dr. Farhat Elvis MCHC (RBC) [Mass/Vol] 32.9 g/dL Normal 29.9-35.2 [facility] Comment on above: Performed By: #### C BC ####[facility] Rqfiieabbs7[address] [place] [address]Dr. Madelynlorri Elvis MCV (RBC) [Entitic vol] 90.5 fL Normal 80.0-94.0 [facility] Comment on above: Performed By: #### C BC ####[facility] Qzvyehnkqq39[address] [place] [address]Dr. Farhat Elvis MONO # 1.3 103/ul Critically high 0.3-0.8 [facility] Comment on above: Performed By: #### C BC ####[facility] Ixvjttzqzb7[address] [place] [address]Dr. Madelynlorri Leal Monocytes/100 WBC (Bld) 8.3 % Normal 1.7-12.0 [facility] Comment on above: Performed By: #### C BC ####[facility] W[address]lkr3168 [place], [place] [address]Mm. Farhat Leal NEUT # 13.9 103/ul Critically high 1.4-6.5 [facility] [place] [facility] Comment on above: Performed By: #### C BC ####[facility] Krpdcmyymi7314 [place], [place] [address]Zq. Farhat Leal Neutrophils/100 WBC (Bld) 87.9 % Critically high 43.0-75.0 [facility] Comment on above: Performed By: #### C BC ####[facility] Yuqzwmnvid9258 [place], [place] [address]Zs. Farhat Leal Platelet mean volume (Bld) [Entitic vol] 9.3 fL Critically low 9.5-13.5 [facility] Comment on above: Performed By: #### C BC ####[facility] Yqlvfuulzh8[address] [place] [address]Dr. Farhat Leal PLT 390 103/ul Normal 150-450 [facility] Comment on above: Performed By: #### C BC ####[facility] Dhccdkcgdt5851 [place], [place] [address]Lb. Farhat Leal RBC 3.49 106/ul Critically low 4.70-6.10 [facility] Comment on above: Performed By: #### C BC ####[facility] Ktnhavjlav2593 [place], [place] [address]Nv. Farhat Leal WBC 15.9 103/ul Critically high 4.0-11.0 [facility] [place] [facility] Comment on above: Performed By: #### C BC ####[facility] Gbwbrxmlar9753 [place], [place] [address]Ec. Farhat Leal [address] HEAD WO CONon 11-23-2021 CT HEAD WO CON Normal [facility] CULTURE BLOODon 11-23-2021 Microscopic examination of blood, culture Culture Observations: NO GROWTH AT 5 DAYS. Normal [facility] Comment on above: Performed By: #### B LDCX2 ####[facility] Gc[address]nx[address]evl[address] [place] [address]Dr. Farhat Leal Covid-19 PCR (CVDTBH)on SARS-CoV-2 (COVID-19) RNA JOSH+probe Ql (Unsp spec) Not detected Normal NOT DETECTED [facility] Comment on above: Result Comment: When [...] for this test is supported by the Freedom of Health and Human Service's declaration that [...] be used). Performed By: #### C VDTBH ####[facility] M[address]wglvhos[address] [place] [address]Dr. Farhat Leal LACTATE/LACTIC ACIDon 2021 Lactate [Moles/Vol] 1.3 mmol/L Normal 0.4-1.9 [facility] Comment on above: Performed By: #### L ACT ####[facility] Ulnalicgpq[address] [place], [place] [address]DrSkylar Leal Lactate [Moles/Vol] 1.3 mmol/L Normal 0.4-1.9 [facility] Comment on above: Performed By: #### L ACT ####[facility] Kdtgwzurkh[address] [place], [place] [address]DrSkylar Leal POINT OF CARE GLUCOSEon Glucose [Mass/Vol] 252 mg/dL Critically high 74-106 [facility] Comment on above: Performed By: #### P OCGLUC ####[facility] Aeavwlsckr1466 [place] [address]DrSkylar Leal PROF 14(COMP METB)on 022 Albumin [Mass/Vol] 1.6 g/dL Critically low 3.4-5.0 [facility] Comment on above: Performed By: #### C MP CMADM, BNP ####[facility] Otfgwouupe[address] [place] [address]Dr. Farhat Leal Albumin/Globulin [Mass ratio] 0.4 {ratio} Normal [facility] Comment on above: Performed By: #### C MP, CMADM, BNP ####[facility] Vyszbucxdl7042 [place] [address]Dr. Farhat Elvis ALP [Catalytic activity/Vol] 98 U/L Normal 46-116 [facility] Comment on above: Performed By: #### C MP, CMADM, BNP ####[facility] Wjiyjgmsii94[address] [place] [address]Dr. Farhat Leal ALT [Catalytic activity/Vol] 52 U/L Normal 16-63 [facility] Comment on above: Performed By: #### C CARA CMADM, BNP ####[facility] Mdmmeuctek8225 [place] [address]Dr. Farhat Leal Anion gap [Moles/Vol] 9.8 mmol/L Normal [facility] Comment on above: Performed By: #### C MP CMADM, BNP ####[facility] Vrsruwdhpr23[address] [place] [address]Dr. Farhat Leal AST [Catalytic activity/Vol] 122 U/L Critically high 15-37 [facility] Comment on above: Performed By: #### C MP, CMADM, BNP ####[facility] Jrshdfuiso8698 [place] [address]Dr. Farhat Leal Bilirubin [Mass/Vol] 0.7 mg/dL Normal 0.2-1.0 [facility] Comment on above: Performed By: #### C MP, CMADM, BNP ####[facility] Xoyavwddtq0707 [place] [address]Dr. Farhat Leal Calcium [Mass/Vol] 8.6 mg/dL Normal 8.5-10.1 [facility] Comment on above: Performed By: #### C MP, CMADM, BNP ####[facility] Yparadlucg2816 [place] [address]Dr. Farhat Leal Chloride [Moles/Vol] 95 mmol/L Critically low 98-107 [facility] Comment on above: Performed By: #### C MP, CMADM, BNP ####[facility] Jkoajipsop8085 [place] [address]Dr. Farhat Leal CO2 [Moles/Vol] 29.6 mmol/L Normal 21.0-32.0 [facility] [place] [facility] Comment on above: Performed By: #### C MP, CMADM, BNP ####[facility] Fjsghhiiuj0559 [place] [address]Dr. Farhat Leal Creatinine [Mass/Vol] 1.49 mg/dL Critically high 0.70-1.30 [facility] Comment on above: Performed By: #### C MP, CMADM, BNP ####[facility] [address]qsq[address] [place], [place] [address]Dr. Madelynlorri Elvis EGFR-AF QATARI 55 mL/min/1.73m2 Critically low >=60 [facility] Comment on above: Performed By: #### C MP, CMADM, BNP ####[facility] Budfkxmrgh[address] [place], [place] [address]Dr. Farhat Elvis EGFR-NON AF QATARI 46 mL/min/1.73m2 Critically low >=60 [facility] Comment on above: Performed By: #### C MP, CMADM, BNP ####[facility] Kwruaadflm9260 [place] [address]Dr. Farhat Leal Globulin (S) [Mass/Vol] 4.3 g/dL Normal [facility] Comment on above: Performed By: #### C MP, CMADM, BNP ####[facility] Vwamnwtkut64[address] [place] [address]Dr. Madelynlorri Elvis Glucose [Mass/Vol] 213 mg/dL Critically high 74-106 [facility] Comment on above: Performed By: #### C MP, CMADM, BNP ####[facility] Yijiywdaqg9518 [place] [address]Dr. Farhat Leal Potassium [Moles/Vol] 4.4 mmol/L Normal 3.5-5.1 [facility] Comment on above: Performed By: #### C FATMATA MARROQUINDM, BNP ####[facility] Bzgouryrdm13[address] [place] [address]Dr. Madelynlorri Leal Protein [Mass/Vol] 5.9 g/dL Critically low 6.4-8.2 [facility] Comment on above: Performed By: #### C FATMATA MARROQUINDM, BNP ####[facility] Djbqiypbee90[address] [place] [address]Dr. Madelynlorri Leal Sodium [Moles/Vol] 130 mmol/L Critically low 136-145 [facility] Comment on above: Performed By: #### C ANTWAN MARROQUIN, BNP ####[facility] Xlpcfakppn7536 [place] [address]Dr. Farhat Leal Urea nitrogen [Mass/Vol] 46.0 mg/dL Critically high 7.0-18.0 [facility] Comment on above: Performed By: #### C FATMATA MARROQUINDM, BNP ####[facility] Qmwekczpyz027[address] [place] [address]Dr. Farhat Leal Urea nitrogen/Creatinine [Mass ratio] 30.9 mg/mg Normal [facility] Comment on above: Performed By: #### C ANTWAN MARROQUIN, BNP ####[facility] Ivougjntlw8[address] [place] [address]Dr. Farhat Leal PROTIMEon 11-23-2021 INR Coag (PPP) [Relative time] 2.55 {INR} Normal [facility] Comment on above: Performed By: #### P TT, PT ####[facility] Mkfrtoghee[address] [place] [address]Dr. Farhat Leal INR GUIDELINES SEE BELOW Normal [facility] Comment on above: Result Comment: MALINA RED INR: 2.0 - 3.0 CONDITIONS NOT LISTED BELOW 2.5 - 3.5 FOR PROSTHETIC HEART VALVE REPLACEMENT 2.5 - 3.5 RECURRENT THROMBOSIS Performed By: #### P TT, PT ####[facility] Udpfedsqrs[address] [place], [place] [address]Dr. Farhat Elvis PT Coag (PPP) [Time] 25.9 s Critically high 9.0-11.6 [facility] Comment on above: Performed By: #### P TT, PT ####[facility] [address]zwmggsrib[address] [place], [place] [address]Dr. Farhat Leal PTTon 11-23-2021 aPTT Coag (Bld) [Time] 39.9 s Critically high 22.3-36. 2 [facility] Comment on above: Performed By: #### P TT, PT ####[facility] Nipgddfkwb15[address] [place], [place] [address]Dr. Farhat Elvis XR CHEST 1 Von 11-23-2021 XR CHEST 1 V Normal [facility] XR HEEL RT 2Von 11-23-2021 XR HEEL RT 2V Normal [facility] XR FOOT RT MIN 3 VIEWSon XR FOOT RT MIN 3 VIEWS Normal [facility] US ARTERY LEG RTon 2 US ARTERY LEG RT Normal [facility] [place] [facility] CBC AUTO DIFFon 09-24-2021 BASO # 0.1 103/ul Normal 0.0-0.1 [facility] Comment on above: Performed By: #### C BC ####[facility] Yjeymgknfh[address] [place], [place] [address]Dr. Farhat Leal Basophils/100 WBC (Bld) 0.7 % Normal 0.2-2.0 [facility] Comment on above: Performed By: #### C BC ####[facility] Redbneksrp[address] [place], [place] [address]Dr. Farhat Leal EO # 0.3 103/ul Normal 0.0-0.7 [facility] Comment on above: Performed By: #### C BC ####[facility] Istjquxapf[address] [place], [place] [address]Dr. Farhat Leal Eosinophils/100 WBC (Bld) 3.9 % Normal 0.9-7.0 [facility] Comment on above: Performed By: #### C BC ####[facility] Tlyttlkwpi[address] [place], [place] [address]Dr. Faraht Leal Erythrocyte distribution width (RBC) [Ratio] 12.6 % Normal 11.0-15.0 [facility] Comment on above: Performed By: #### C BC ####[facility] Nxuacwrnbv5459 [place] [address]Dr. Farhat Leal Hematocrit (Bld) [Volume fraction] 38.9 % Critically low 42.0-54.0 [facility] Comment on above: Performed By: #### C BC ####[facility] Zycbwutdbk[address] [place], [place] [address]Dr. Madelynlorri Leal Hemoglobin (Bld) [Mass/Vol] 12.8 g/dL Critically low 14.0-18.0 [facility] Comment on above: Performed By: #### C BC ####[facility] Lhhmgluwak[address] [place], [place] [address]Dr. Farhat Leal IG # 0.10 10e3/ul Critically high 0.00-0.03 [facility] Comment on above: Performed By: #### C BC ####[facility] Qebrgntyhm[address] [place], [place] [address]Dr. Madelynlorri Leal IG % 1.2 % Critically high 0.0-0.5 [facility] Comment on above: Performed By: #### C BC ####[facility] Btqjkwqjcy[address] [place], [place] [address]Dr. Farhat Leal LYMPH # 2.1 103/ul Normal 1.2-3.8 [facility] Comment on above: Performed By: #### C BC ####[facility] Uytyfxqezx[address] [place], [place] [address]DrSkylar Leal Lymphocytes/100 WBC (Bld) 25.9 % Normal 20.5-60.0 [facility] Comment on above: Performed By: #### C BC ####[facility] Gvgyhvjilp[address] [place], [place] [address]DrSkylar Leal MANUAL DIFF REQ NO Normal [facility] Comment on above: Performed By: #### C BC ####[facility] Wfeymlxwgj[address] [place], [place] [address]DrSkylar Leal MCH (RBC) [Entitic mass] 31.1 pg Normal 25.9-34.0 [facility] Comment on above: Performed By: #### C BC ####[facility] Rqvdqjnpxr81[address] [place] [address]Dr. Farhat Leal MCHC (RBC) [Mass/Vol] 32.9 g/dL Normal 29.9-35.2 [facility] Comment on above: Performed By: #### C BC ####[facility] Fgqcdvhadb1353 [place] [address]Dr. Farhat Leal MCV (RBC) [Entitic vol] 94.6 fL Critically high 80.0-94.0 [facility] Comment on above: Performed By: #### C BC ####[facility] Watejsnudd1338 [place] [address]DrSkylar Farhat Leal MONO # 1.2 103/ul Critically high 0.3-0.8 [facility] Comment on above: Performed By: #### C BC ####[facility] Xhzmolecag[address] [place], [place] [address]Dr. Farhat Leal Monocytes/100 WBC (Bld) 14.1 % Critically high 1.7-12.0 [facility] Comment on above: Performed By: #### C BC ####[facility] Utyqncruej[address] [place], [place] [address]DrSkylar Farhat Leal NEUT # 4.4 103/ul Normal 1.4-6.5 [facility] Comment on above: Performed By: #### C BC ####[facility] Bhqukfkmxv6798 [place] [address]DrSkylar Farhat Elvis Neutrophils/100 WBC (Bld) 54.2 % Normal 43.0-75.0 [facility] Comment on above: Performed By: #### C BC ####[facility] [address]id[address]krtd[address] [place], [place] [address]DrSkylar Farhat Leal Platelet mean volume (Bld) [Entitic vol] 9.9 fL Normal 9.5-13.5 [facility] Comment on above: Performed By: #### C BC ####[facility] Ewjtpgbxlk7[address] [place] [address]Dr. Farhat Elvis PLT 224 103/ul Normal 150-450 [facility] Comment on above: Performed By: #### C BC ####[facility] Gcfmhwjpyc8[address] [place] [address]Dr. Farhat Leal RBC 4.11 106/ul Critically low 4.70-6.10 [facility] Comment on above: Performed By: #### C BC ####[facility] Aeroyhuicj[address] [place] [address]Dr. Farhat Elvis WBC 8.2 103/ul Normal 4.0-11.0 [facility] Comment on above: Performed By: #### C BC ####[facility] Lmdtqvzrty98[address] [place] [address]Dr. Madelynlorri Leal PROF CHEM 8 (BAS METB)on Anion gap [Moles/Vol] 9.6 mmol/L Normal [facility] Comment on above: Performed By: #### B MP ####[facility] Clrumyckzo6361 [place] [address]Dr. Madelynlorri Leal Calcium [Mass/Vol] 8.6 mg/dL Normal 8.5-10.1 [facility] Comment on above: Performed By: #### B MP ####[facility] Hxamyehgom7204 [place] [address]Dr. Madelynlorri Leal Chloride [Moles/Vol] 94 mmol/L Critically low 98-107 [facility] Comment on above: Performed By: #### B MP ####[facility] Wqxuhzvzto7868 [place] [address]Dr. Farhat Leal CO2 [Moles/Vol] 28.1 mmol/L Normal 21.0-32.0 [facility] [place] [facility] Comment on above: Performed By: #### B MP ####[facility] Hcapngodvp1763 [place] [address]Dr. Farhat Leal Creatinine [Mass/Vol] 1.91 mg/dL Critically high 0.70-1.30 [facility] Comment on above: Performed By: #### B MP ####[facility] Cncltcxwkn26[address] [place] [address]Dr. Farhat Elvis EGFR-AF QATARI 42 mL/min/1.73m2 Critically low >=60 [facility] Comment on above: Performed By: #### B MP ####[facility] Ovbrqdsdui3[address] [place] [address]Dr. Farhat Elvis EGFR-NON AF QATARI 34 mL/min/1.73m2 Critically low >=60 [facility] Comment on above: Performed By: #### B MP ####[facility] Ewisfvpqlz2486 [place] [address]Dr. Farhat Leal Glucose [Mass/Vol] 314 mg/dL Critically high 74-106 [facility] Comment on above: Performed By: #### B MP ####[facility] [address]qtncowfs[address] [place], [place] [address]Dr. Farhat Leal Potassium [Moles/Vol] 4.7 mmol/L Normal 3.5-5.1 [facility] Comment on above: Performed By: #### B MP ####[facility] Lpwvmlxzkc[address] [place], [place] [address]Dr. Farhat Leal Sodium [Moles/Vol] 127 mmol/L Critically low 136-145 [facility] Comment on above: Performed By: #### B MP ####[facility] Aurxirlzjd[address] [place], [place] [address]Dr. Farhat Leal Urea nitrogen [Mass/Vol] 79.0 mg/dL Critically high 7.0-18.0 [facility] Comment on above: Result Comment: repe ated Performed By: #### B MP ####[facility] Lpemcngdhw2596 [place] [address]Dr. Farhat Leal Urea nitrogen/Creatinine [Mass ratio] 41.4 mg/mg Normal [facility] Comment on above: Performed By: #### B MP ####[facility] Jgqjiqzfyr[address] [place], [place] [address]Dr. Farhat Leal PTT HEPARIN MONITORon 2021 aPTT Coag (Bld) [Time] 42.7 s Normal 39.5-54.2 [facility] Comment on above: Performed By: #### P TTHEP ####[facility] Ufqphkaedn1776 [place] [address]Dr. Farhat Leal aPTT Coag (Bld) [Time] 56.7 s Critically high 39.5-54. 2 [facility] Comment on above: Performed By: #### P TTHEP ####[facility] Dsbgxkxebm13[address] [place], [place] [address]Dr. Farhat Leal CBC AUTO DIFFon 09-23-2021 BASO # 0.1 103/ul Normal 0.0-0.1 [facility] Comment on above: Performed By: #### C BC ####[facility] Audlluform[address] [place], [place] [address]DrSkylar Leal Basophils/100 WBC (Bld) 0.6 % Normal 0.2-2.0 [facility] Comment on above: Performed By: #### C BC ####[facility] Yznglfdkfl[address] [place], [place] [address]DrSkylar Leal EO # 0.2 103/ul Normal 0.0-0.7 [facility] Comment on above: Performed By: #### C BC ####[facility] Bwvromrrbr[address] [place], [place] [address]DrSkylar Leal Eosinophils/100 WBC (Bld) 2.6 % Normal 0.9-7.0 [facility] Comment on above: Performed By: #### C BC ####[facility] Jnvntjeovi[address] [place], [place] [address]DrSkylar Leal Erythrocyte distribution width (RBC) [Ratio] 12.4 % Normal 11.0-15.0 [facility] Comment on above: Performed By: #### C BC ####[facility] Ikvecgpydz94[address] [place], [place] [address]DrSkylar Leal Hematocrit (Bld) [Volume fraction] 38.4 % Critically low 42.0-54.0 [facility] Comment on above: Performed By: #### C BC ####[facility] [address]qjikhcd[address] [place], [place] [address]DrSkylar Leal Hemoglobin (Bld) [Mass/Vol] 12.8 g/dL Critically low 14.0-18.0 [facility] Comment on above: Performed By: #### C BC ####[facility] [address] [place] [address]DrSkylar Leal IG # 0.06 10e3/ul Critically high 0.00-0.03 [facility] Comment on above: Performed By: #### C BC ####[facility] Cevgbefcdc8[address] [place] [address]DrSkylar Leal IG % 0.8 % Critically high 0.0-0.5 [facility] Comment on above: Performed By: #### C BC ####[facility] Badiycoexf[address] [place], [place] [address]DrSkylar Leal LYMPH # 1.5 103/ul Normal 1.2-3.8 [facility] Comment on above: Performed By: #### C BC ####[facility] Tulkxkppmu[address] [place], [place] [address]DrSkylar Leal Lymphocytes/100 WBC (Bld) 19.7 % Critically low 20.5-60.0 [facility] Comment on above: Performed By: #### C BC ####[facility] Yxpveiaqey[address] [place], [place] [address]DrSkylar Leal MANUAL DIFF REQ NO Normal [facility] Comment on above: Performed By: #### C BC ####[facility] Shlxuspofm499[address] [place], [place] [address]DrSkylar Leal MCH (RBC) [Entitic mass] 31.6 pg Normal 25.9-34.0 [facility] Comment on above: Performed By: #### C BC ####[facility] Gqedlpkpab5420[address] [place], [place] [address]DrSkylar Leal MCHC (RBC) [Mass/Vol] 33.3 g/dL Normal 29.9-35.2 [facility] Comment on above: Performed By: #### C BC ####[facility] Yucvjhumrv5410[address] [place], [place] [address]DrSkylar Leal MCV (RBC) [Entitic vol] 94.8 fL Critically high 80.0-94.0 [facility] Comment on above: Performed By: #### C BC ####[facility] Pbxcdtfsgh030[address] [place] [address]DrSkylar Farhat Leal MONO # 1.0 103/ul Critically high 0.3-0.8 [facility] Comment on above: Performed By: #### C BC ####[facility] Kaaapialcr314[address] [place], [place] [address]DrSkylar Joshilorri Elvis Monocytes/100 WBC (Bld) 13.0 % Critically high 1.7-12.0 [facility] Comment on above: Performed By: #### C BC ####[facility] Xszdyiegxx664[address] [place], [place] [address]Dr. Farhat Leal NEUT # 4.9 103/ul Normal 1.4-6.5 [facility] Comment on above: Performed By: #### C BC ####[facility] Ishvcdpiby1848[address] [place], [place] [address]Dr. Farhat Leal Neutrophils/100 WBC (Bld) 63.3 % Normal 43.0-75.0 [facility] Comment on above: Performed By: #### C BC ####[facility] Jkjfzshkbv069[address] [place], [place] [address]DrSkylar Joshilorri Elvis Platelet mean volume (Bld) [Entitic vol] 10.7 fL Normal 9.5-13.5 [facility] Comment on above: Performed By: #### C BC ####[facility] Igfjmmqdnw994198 [address] [place], [place] [address]Dr. Farhat Leal PLT 205 103/ul Normal 150-450 [facility] Comment on above: Performed By: #### C BC ####[facility] Rellntucvt869[address] [place], [place] [address]DrSkylar Leal RBC 4.05 106/ul Critically low 4.70-6.10 [facility] Comment on above: Performed By: #### C BC ####[facility] Jwsjdyhejo255[address] [place], [place] [address]DrSkylar Leal WBC 7.7 103/ul Normal 4.0-11.0 [facility] Comment on above: Performed By: #### C BC ####[facility] Srjnhoykgs1995[address] [place], [place] [address]Dr. Farhat Leal PROF CHEM 8 (BAS METB)on Anion gap [Moles/Vol] 15.5 mmol/L Normal [facility] Comment on above: Performed By: #### B MP ####[facility] Jdxjyowbgy4447[address] [place], [place] [address]Dr. Farhat Elvis Calcium [Mass/Vol] 9.1 mg/dL Normal 8.5-10.1 [facility] Comment on above: Performed By: #### B MP ####[facility] Cfcbrwzyhp077[address] [place], [place] [address]Dr. Farhat Leal Chloride [Moles/Vol] 92 mmol/L Critically low 98-107 [facility] Comment on above: Performed By: #### B MP ####[facility] Kjdrzmdudr3523[address] [place], [place] [address]Dr. Farhat Elvis CO2 [Moles/Vol] 28.5 mmol/L Normal 21.0-32.0 [facility] Comment on above: Performed By: #### B MP ####[facility] Wxyxnmuesy296398 [address] [place], [place] [address]Dr. Farhat Elvis Creatinine [Mass/Vol] 1.84 mg/dL Critically high 0.70-1.30 [facility] Comment on above: Performed By: #### B MP ####[facility] Yhhsazwudz477398 [address] [place], [place] [address]Dr. Farhat Leal EGFR-AF QATARI 44 mL/min/1.73m2 Critically low >=60 [facility] Comment on above: Performed By: #### B MP ####[facility] Ntbualnbtt887[address] [place], [place] [address]Dr. Farhat Leal EGFR-NON AF QATARI 36 mL/min/1.73m2 Critically low >=60 [facility] Comment on above: Performed By: #### B MP ####[facility] Ymltldoukg[address] [place] [address]Dr. Farhat Leal Glucose [Mass/Vol] 267 mg/dL Critically high 74-106 [facility] Comment on above: Performed By: #### B MP ####[facility] Kobmunbamw755[address] [place], [place] [address]Dr. Farhat Leal Potassium [Moles/Vol] 5.0 mmol/L Normal 3.5-5.1 [facility] Comment on above: Performed By: #### B MP ####[facility] Bjtflultov0065[address] [place], [place] [address]Dr. Farhat Leal Sodium [Moles/Vol] 131 mmol/L Critically low 136-145 [facility] Comment on above: Performed By: #### B MP ####[facility] Bklozgeqmk0340[address] [place], [place] [address]Dr. Farhat Leal Urea nitrogen [Mass/Vol] 76.0 mg/dL Critically high 7.0-18.0 [facility] Comment on above: Performed By: #### B MP ####[facility] Hlfgvttwnd420[address] [place], [place] [address]Dr. Farhat Leal Urea nitrogen/Creatinine [Mass ratio] 41.3 mg/mg Normal [facility] Comment on above: Performed By: #### B MP ####[facility] Yuteusqgcc856[address] [place], [place] [address]Dr. Farhat Leal PTT HEPARIN MONITORon 2021 aPTT Coag (Bld) [Time] 57.2 s Critically high 39.5-54. 2 [facility] Comment on above: Performed By: #### P TTHEP ####[facility] Jdgennnesr124398 [address] [place], [place] [address]Dr. Farhat Leal aPTT Coag (Bld) [Time] 74.7 s Critically high 39.5-54. 2 [facility] Comment on above: Result Comment: repe ated Performed By: #### P TTHEP ####[facility] Sqkhrksrur018[address] [place], [place] [address]Dr. Farhat Leal aPTT Coag (Bld) [Time] 45.5 s Normal 39.5-54.2 [facility] Comment on above: Performed By: #### P TTHEP ####[facility] Zhrrgfrisz4[address] [place] [address]Dr. Farhat Elvis CBC AUTO DIFFon 09-22-2021 BASO # 0.1 103/ul Normal 0.0-0.1 [facility] Comment on above: Performed By: #### C BC ####[facility] Bwnrqbjgqc6627[address] [place], [place] [address]Dr. Farhat Leal Basophils/100 WBC (Bld) 0.7 % Normal 0.2-2.0 [facility] Comment on above: Performed By: #### C BC ####[facility] Mwzezslkbh920[address] [place], [place] [address]Dr. Madelynlorri Elvis EO # 0.3 103/ul Normal 0.0-0.7 [facility] Comment on above: Performed By: #### C BC ####[facility] Iusabkpinb157[address] [place], [place] [address]Dr. Farhat Leal Eosinophils/100 WBC (Bld) 3.2 % Normal 0.9-7.0 [facility] Comment on above: Performed By: #### C BC ####[facility] Sffvgkzymb880[address] [place], [place] [address]Dr. Farhat Elvis Erythrocyte distribution width (RBC) [Ratio] 12.5 % Normal 11.0-15.0 [facility] Comment on above: Performed By: #### C BC ####[facility] Lpbtlcjzom786[address] [place], [place] [address]Dr. Farhat eLal Hematocrit (Bld) [Volume fraction] 40.5 % Critically low 42.0-54.0 [facility] Comment on above: Performed By: #### C BC ####[facility] Rhmadikxvg762198 [address] [place], [place] [address]Dr. Farhat Leal Hemoglobin (Bld) [Mass/Vol] 13.4 g/dL Critically low 14.0-18.0 [facility] Comment on above: Performed By: #### C BC ####[facility] Qu[address]vzjsfn[address] [place] [address]Dr. Farhat Leal IG # 0.11 10e3/ul Critically high 0.00-0.03 [facility] Comment on above: Performed By: #### C BC ####[facility] Zpcnelston6[address] [place] [address]Dr. Farhat Leal IG % 1.3 % Critically high 0.0-0.5 [facility] Comment on above: Performed By: #### C BC ####[facility] Uvitpuipon519198 [address] [place], [place] [address]Dr. Farhat Elvis LYMPH # 1.7 103/ul Normal 1.2-3.8 [facility] Comment on above: Performed By: #### C BC ####[facility] Adkxajoqfe8820[address] [place], [place] [address]Dr. Farhat Elvis Lymphocytes/100 WBC (Bld) 19.6 % Critically low 20.5-60.0 [facility] Comment on above: Performed By: #### C BC ####[facility] Exptawxtrc5212[address] [place], [place] [address]DrSkylar Farhat Leal MANUAL DIFF REQ NO Normal [facility] Comment on above: Performed By: #### C BC ####[facility] Fsmkanmhuo44119[address] [place], [place] [address]Dr. Farhat Leal MCH (RBC) [Entitic mass] 31.1 pg Normal 25.9-34.0 [facility] Comment on above: Performed By: #### C BC ####[facility] Nvrmkadxsk245[address] [place], [place] [address]DrSkylar Farhat Leal MCHC (RBC) [Mass/Vol] 33.1 g/dL Normal 29.9-35.2 [facility] Comment on above: Performed By: #### C BC ####[facility] Diodgkxqzd395[address] [place], [place] [address]DrSkylar Farhat Leal MCV (RBC) [Entitic vol] 94.0 fL Normal 80.0-94.0 [facility] Comment on above: Performed By: #### C BC ####[facility] Bgcpivrskc79299[address] [place], [place] [address]Dr. Farhat Leal MONO # 1.1 103/ul Critically high 0.3-0.8 [facility] Comment on above: Performed By: #### C BC ####[facility] I[address]jiacbltr[address] [place] [address]Dr. Farhat Leal Monocytes/100 WBC (Bld) 12.7 % Critically high 1.7-12.0 [facility] Comment on above: Performed By: #### C BC ####[facility] Yntbswlvju32[address] [place] [address]Dr. Farhat Leal NEUT # 5.3 103/ul Normal 1.4-6.5 [facility] Comment on above: Performed By: #### C BC ####[facility] Rjxgwaubxo24[address] [place] [address]Dr. Farhat Elvis Neutrophils/100 WBC (Bld) 62.5 % Normal 43.0-75.0 [facility] Comment on above: Performed By: #### C BC ####[facility] Sficgkocmm5610[address] [place], [place] [address]Dr. Farhat Leal Platelet mean volume (Bld) [Entitic vol] 10.1 fL Normal 9.5-13.5 [facility] Comment on above: Performed By: #### C BC ####[facility] Oixdbeuhei474[address] [place], [place] [address]Dr. Farhat Elvis PLT 220 103/ul Normal 150-450 [facility] Comment on above: Performed By: #### C BC ####[facility] Ycnetiaxsk1733[address] [place], [place] [address]Dr. Farhat Leal RBC 4.31 106/ul Critically low 4.70-6.10 [facility] Comment on above: Performed By: #### C BC ####[facility] Neyecrugsr[address] [place] [address]Dr. Madelynlorri Elvis WBC 8.4 103/ul Normal 4.0-11.0 [facility] Comment on above: Performed By: #### C BC ####[facility] Nmxneclgsn3[address] [place] [address]Dr. Farhat Leal PROF CHEM 8 (BAS METB)on Anion gap [Moles/Vol] 15.5 mmol/L Normal [facility] Comment on above: Performed By: #### B MP ####[facility] Gbhlktypic[address] [place] [address]Dr. Farhat Leal Calcium [Mass/Vol] 8.9 mg/dL Normal 8.5-10.1 [facility] Comment on above: Performed By: #### B MP ####[facility] Opxsekwzfz65[address] [place] [address]Dr. Farhat Leal Chloride [Moles/Vol] 92 mmol/L Critically low 98-107 [facility] Comment on above: Performed By: #### B MP ####[facility] Iuizoerjlu5047[address] [place], [place] [address]Dr. Farhat Leal CO2 [Moles/Vol] 25.7 mmol/L Normal 21.0-32.0 [facility] Comment on above: Performed By: #### B MP ####[facility] Zdgbmcfvha399[address] [place], [place] [address]Dr. Farhat Leal Creatinine [Mass/Vol] 1.85 mg/dL Critically high 0.70-1.30 [facility] Comment on above: Performed By: #### B MP ####[facility] Zlajkicezh896[address] [place], [place] [address]Dr. Farhat Leal EGFR-AF QATARI 43 mL/min/1.73m2 Critically low >=60 [facility] Comment on above: Performed By: #### B MP ####[facility] Dwvxwjtpsx6688[address] [place], [place] [address]Dr. Farhat Leal EGFR-NON AF QATARI 36 mL/min/1.73m2 Critically low >=60 [facility] Comment on above: Performed By: #### B MP ####[facility] Myhmkscwem866[address] [place], [place] [address]Dr. Farhat Leal Glucose [Mass/Vol] 410 mg/dL Critically high 74-106 [facility] Comment on above: Performed By: #### B MP ####[facility] Yjcmtcpqer022398 [address] [place], [place] [address]Dr. Farhat Leal Potassium [Moles/Vol] 5.2 mmol/L Critically high 3.5-5.1 [facility] Comment on above: Performed By: #### B MP ####[facility] Boczztjzpo218198 [address] [place], [place] [address]Dr. Farhat Leal Sodium [Moles/Vol] 128 mmol/L Critically low 136-145 [facility] Comment on above: Performed By: #### B MP ####[facility] Kcqijvzvxq9415[address] [place], [place] [address]Dr. Farhat Leal Urea nitrogen [Mass/Vol] 75.0 mg/dL Critically high 7.0-18.0 [facility] Comment on above: Performed By: #### B MP ####[facility] Bpcwnwmwbc005398 [address] [place], [place] [address]Dr. Farhat Leal Urea nitrogen/Creatinine [Mass ratio] 40.5 mg/mg Normal [facility] Comment on above: Performed By: #### B MP ####[facility] Pgzehcsypl176[address] [place], [place] [address]Dr. Farhat Leal PTT HEPARIN MONITORon 2021 aPTT Coag (Bld) [Time] 51.2 s Normal 39.5-54.2 [facility] Comment on above: Performed By: #### P TTHEP ####[facility] Zvnelldhrj257[address] [place], [place] [address]Dr. Farhat Leal aPTT Coag (Bld) [Time] 55.6 s Critically high 39.5-54. 2 [facility] Comment on above: Performed By: #### P TTHEP ####[facility] Ovzquukhrg1580[address] [place], [place] [address]Dr. Farhat Leal aPTT Coag (Bld) [Time] 46.1 s Normal 39.5-54.2 [facility] Comment on above: Performed By: #### P TTHEP ####[facility] Enspssvmvl6901[address] [place], [place] [address]Dr. Farhat Leal aPTT Coag (Bld) [Time] 53.8 s Normal 39.5-54.2 [facility] Comment on above: Performed By: #### P TTHEP ####[facility] Swumcpxqoq8570[address] [place], [place] [address]Dr. Farhat Elvis CBC AUTO DIFFon 09-21-2021 BASO # 0.1 103/ul Normal 0.0-0.1 [facility] Comment on above: Performed By: #### C BC ####[facility] Esjobebyzv940[address] [place], [place] [address]Dr. Farhat Leal Basophils/100 WBC (Bld) 0.8 % Normal 0.2-2.0 [facility] Comment on above: Performed By: #### C BC ####[facility] Zplvdqpiph656[address] [place], [place] [address]Dr. Farhat Leal EO # 0.4 103/ul Normal 0.0-0.7 [facility] Comment on above: Performed By: #### C BC ####[facility] Ghgdhzvhfv9436[address] [place], [place] [address]Dr. Farhat Leal Eosinophils/100 WBC (Bld) 4.3 % Normal 0.9-7.0 [facility] Comment on above: Performed By: #### C BC ####[facility] Qrjducboqf5438[address] [place], [place] [address]Dr. Farhat Leal Erythrocyte distribution width (RBC) [Ratio] 12.5 % Normal 11.0-15.0 [facility] Comment on above: Performed By: #### C BC ####[facility] Zrmnhpkfux1704[address] [place], [place] [address]Dr. Farhat Leal Hematocrit (Bld) [Volume fraction] 40.8 % Critically low 42.0-54.0 [facility] Comment on above: Performed By: #### C BC ####[facility] Qujrxomjgf915[address] [place], [place] [address]Dr. Farhat Leal Hemoglobin (Bld) [Mass/Vol] 13.5 g/dL Critically low 14.0-18.0 [facility] Comment on above: Performed By: #### C BC ####[facility] [address]zbjpviu4[address] [place] [address]Dr. Farhat Leal IG # 0.10 10e3/ul Critically high 0.00-0.03 [facility] Comment on above: Performed By: #### C BC ####[facility] Sqmdquysfl4[address] [place] [address]Dr. Farhat Leal IG % 1.2 % Critically high 0.0-0.5 [facility] Comment on above: Performed By: #### C BC ####[facility] [address]jsxf[address] [place] [address]Dr. Farhat Elvis LYMPH # 1.3 103/ul Normal 1.2-3.8 [facility] Comment on above: Performed By: #### C BC ####[facility] Fhznyursix56[address] [place] [address]Dr. Farhat Elvis Lymphocytes/100 WBC (Bld) 15.4 % Critically low 20.5-60.0 [facility] Comment on above: Performed By: #### C BC ####[facility] [address]uhrmk[address] [place] [address]Dr. Farhat Elvis MANUAL DIFF REQ NO Normal [facility] Comment on above: Performed By: #### C BC ####[facility] Y[address]urhezf[address] [place] [address]Dr. Farhat Leal MCH (RBC) [Entitic mass] 31.0 pg Normal 25.9-34.0 [facility] Comment on above: Performed By: #### C BC ####[facility] Fladoxmzyw[address] [place] [address]Dr. Farhat Leal MCHC (RBC) [Mass/Vol] 33.1 g/dL Normal 29.9-35.2 [facility] Comment on above: Performed By: #### C BC ####[facility] Vouzntpvpn812[address] [place], [place] [address]Dr. Farhat Leal MCV (RBC) [Entitic vol] 93.8 fL Normal 80.0-94.0 [facility] Comment on above: Performed By: #### C BC ####[facility] U[address]fsitdh[address] [place] [id number]. Farhat Leal MONO # 1.2 103/ul Critically high 0.3-0.8 [facility] Comment on above: Performed By: #### C BC ####[facility] Aqdmzszkdu[address] [place] [address]Dr. Farhat Elvis Monocytes/100 WBC (Bld) 13.6 % Critically high 1.7-12.0 [facility] Comment on above: Performed By: #### C BC ####[facility] Mjliymggeg[address] [place] [address]Dr. Farhat Leal NEUT # 5.5 103/ul Normal 1.4-6.5 [facility] Comment on above: Performed By: #### C BC ####[facility] Pzxfvsnsvz658[address] [place], [place] [address]Dr. Farhat Leal Neutrophils/100 WBC (Bld) 64.7 % Normal 43.0-75.0 [facility] Comment on above: Performed By: #### C BC ####[facility] Nboqpcrldr197[address] [place], [place] [address]Dr. Farhat Elvis Platelet mean volume (Bld) [Entitic vol] 9.8 fL Normal 9.5-13.5 [facility] Comment on above: Performed By: #### C BC ####[facility] Mqmesagrad3650[address] [place], [place] [address]Dr. Madelynlorri Elvis PLT 206 103/ul Normal 150-450 [facility] Comment on above: Performed By: #### C BC ####[facility] Odxtmplpnc770[address] [place], [place] [address]Dr. Farhat Elvis RBC 4.35 106/ul Critically low 4.70-6.10 [facility] Comment on above: Performed By: #### C BC ####[facility] Tdvlkcroel[address] [place], [place] [address]Dr. Madelynlorri Elvis WBC 8.4 103/ul Normal 4.0-11.0 [facility] Comment on above: Performed By: #### C BC ####[facility] Vbzjsntpoq4675[address] [place], [place] [address]Dr. Farhat Leal PROF CHEM 8 (BAS METB)on Anion gap [Moles/Vol] 12.3 mmol/L Normal [facility] Comment on above: Performed By: #### B MP ####[facility] Afekndmtcz[address] [place] [address]Dr. Farhat Leal Calcium [Mass/Vol] 8.6 mg/dL Normal 8.5-10.1 [facility] Comment on above: Performed By: #### B MP ####[facility] Wxnaedlhkk26[address] [place] [address]Dr. Farhat Leal Chloride [Moles/Vol] 94 mmol/L Critically low 98-107 [facility] Comment on above: Performed By: #### B MP ####[facility] Dvtnbyqruq610[address] [place], [place] [address]Dr. Farhat Leal CO2 [Moles/Vol] 30.8 mmol/L Normal 21.0-32.0 [facility] Comment on above: Performed By: #### B MP ####[facility] Csitvirpjr569[address] [place], [place] [address]Dr. Farhat Leal Creatinine [Mass/Vol] 1.99 mg/dL Critically high 0.70-1.30 [facility] Comment on above: Performed By: #### B MP ####[facility] Txyhkkuylp109[address] [place], [place] [address]Dr. Farhat Leal EGFR-AF QATARI 40 mL/min/1.73m2 Critically low >=60 [facility] Comment on above: Performed By: #### B MP ####[facility] Sebwcdvpck[address] [place] [address]Dr. Farhat Leal EGFR-NON AF QATARI 33 mL/min/1.73m2 Critically low >=60 [facility] Comment on above: Performed By: #### B MP ####[facility] Sqvpaedoxk9[address] [place] [address]Dr. Farhat Leal Glucose [Mass/Vol] 264 mg/dL Critically high 74-106 [facility] Comment on above: Performed By: #### B MP ####[facility] Rfujmehemp69[address] [place] [address]Dr. Farhat Leal Potassium [Moles/Vol] 5.1 mmol/L Normal 3.5-5.1 [facility] Comment on above: Performed By: #### B MP ####[facility] Jljluyatan6537[address] [place], [place] [address]Dr. Farhat Leal Sodium [Moles/Vol] 132 mmol/L Critically low 136-145 [facility] Comment on above: Performed By: #### B MP ####[facility] Njrdeqsavo8928[address] [place], [place] [address]Dr. Farhat Leal Urea nitrogen [Mass/Vol] 72.0 mg/dL Critically high 7.0-18.0 [facility] Comment on above: Performed By: #### B MP ####[facility] Lnkqwuwuyv7834[address] [place], [place] [address]Dr. Farhat Leal Urea nitrogen/Creatinine [Mass ratio] 36.2 mg/mg Normal [facility] Comment on above: Performed By: #### B MP ####[facility] Updohooixe65[address] [place], [place] [address]Dr. Farhat Leal PTT HEPARIN MONITORon 2021 aPTT Coag (Bld) [Time] 45.3 s Normal 39.5-54.2 [facility] Comment on above: Performed By: #### P TTHEP ####[facility] Rcqlvefajz[address] [place], [place] [address]Dr. Farhat Leal aPTT Coag (Bld) [Time] 68.0 s Critically high 39.5-54. 2 [facility] Comment on above: Performed By: #### P TTHEP ####[facility] Vxhgfikpxk69[address] [place], [place] [address]Dr. Farhat Leal aPTT Coag (Bld) [Time] 69.4 s Critically high 39.5-54. 2 [facility] Comment on above: Performed By: #### P TTHEP ####[facility] Xqmlhpciqz940[address] [place], [place] [address]Dr. Farhat Leal aPTT Coag (Bld) [Time] 53.5 s Normal 39.5-54.2 [facility] Comment on above: Performed By: #### P TTHEP ####[facility] Wrxflbatib30[address] [place] [address]Dr. Farhat Elvis aPTT Coag (Bld) [Time] 126.9 s Critically high 39.5-54. 2 [facility] Comment on above: Performed By: #### P TTHEP ####[facility] [facility] [address] [place], [place] [address]Dr. Farhat Leal CBC AUTO DIFFon 09-20-2021 BASO # 0.1 103/ul Normal 0.0-0.1 [facility] Comment on above: Performed By: #### C BC ####[facility] Pgxvfwiio[address] [place], [place] [address]Dr. Farhat Leal Basophils/100 WBC (Bld) 0.7 % Normal 0.2-2.0 [facility] Comment on above: Performed By: #### C BC ####[facility] [address]fkxyekzun[address] [place], [place] [address]Dr. Farhat Leal EO # 0.2 103/ul Normal 0.0-0.7 [facility] Comment on above: Performed By: #### C BC ####[facility] Xrfwiqrccx199[address] [place], [place] [address]Dr. Farhat Leal Eosinophils/100 WBC (Bld) 3.2 % Normal 0.9-7.0 [facility] Comment on above: Performed By: #### C BC ####[facility] Ojiutogiqe[address] [place], [place] [address]Dr. Farhat Leal Erythrocyte distribution width (RBC) [Ratio] 12.4 % Normal 11.0-15.0 [facility] Comment on above: Performed By: #### C BC ####[facility] Nctwdh[address]hv[address] [place], [place] [address]Dr. Farhat Leal Hematocrit (Bld) [Volume fraction] 40.1 % Critically low 42.0-54.0 [facility] Comment on above: Performed By: #### C BC ####[facility] X[address]vvmvxakw75[address] [place] [address]Dr. Farhat Leal Hemoglobin (Bld) [Mass/Vol] 13.4 g/dL Critically low 14.0-18.0 [facility] Comment on above: Performed By: #### C BC ####[facility] Yyemfqumwr[address] [place] [address]Dr. Farhat Leal IG # 0.08 10e3/ul Critically high 0.00-0.03 [facility] Comment on above: Performed By: #### C BC ####[facility] Lqdxotcadv6723 [place] [address]Dr. Farhat Leal IG % 1.1 % Critically high 0.0-0.5 [facility] Comment on above: Performed By: #### C BC ####[facility] Cjnrclnxaz3550 [place] [address]Dr. Farhat Leal LYMPH # 1.3 103/ul Normal 1.2-3.8 [facility] Comment on above: Performed By: #### C BC ####[facility] Ztdklfzkmq4252 [place] [address]Dr. Farhat Leal Lymphocytes/100 WBC (Bld) 17.3 % Critically low 20.5-60.0 [facility] Comment on above: Performed By: #### C BC ####[facility] Tjjyvbqchz0441 [place] [address]Dr. Farhat Leal MANUAL DIFF REQ NO Normal [facility] Comment on above: Performed By: #### C BC ####[facility] Fyfvsstxtj8063 [place] [address]Dr. Farhat Leal MCH (RBC) [Entitic mass] 31.2 pg Normal 25.9-34.0 [facility] Comment on above: Performed By: #### C BC ####[facility] Ndmvtyrafs1688 [place] [address]Dr. Farhat Leal MCHC (RBC) [Mass/Vol] 33.4 g/dL Normal 29.9-35.2 [facility] Comment on above: Performed By: #### C BC ####[facility] Aoykvepmjq1596 [place] [address]Dr. Farhat Leal MCV (RBC) [Entitic vol] 93.3 fL Normal 80.0-94.0 [facility] Comment on above: Performed By: #### C BC ####[facility] Rbjlpdwvqb5893 [place] [address]Dr. Farhat Leal MONO # 0.9 103/ul Critically high 0.3-0.8 [facility] Comment on above: Performed By: #### C BC ####[facility] Dcvvtiznvk4024 [place] [address]Dr. Farhat Leal Monocytes/100 WBC (Bld) 12.4 % Critically high 1.7-12.0 [facility] Comment on above: Performed By: #### C BC ####[facility] Hrscktwtqd656[address] [place], [place] [address]Dr. Farhat Leal NEUT # 4.7 103/ul Normal 1.4-6.5 [facility] Comment on above: Performed By: #### C BC ####[facility] Scxlyzhonm99[address] [place], [place] [address]Dr. Farhat Leal Neutrophils/100 WBC (Bld) 65.3 % Normal 43.0-75.0 [facility] Comment on above: Performed By: #### C BC ####[facility] Ymbznqepmj97[address] [place], [place] [address]Dr. Farhat Leal Platelet mean volume (Bld) [Entitic vol] 9.9 fL Normal 9.5-13.5 [facility] Comment on above: Performed By: #### C BC ####[facility] Tmumrdbxjj3865 [place] [address]Dr. Farhat Leal PLT 180 103/ul Normal 150-450 [facility] Comment on above: Performed By: #### C BC ####[facility] Glzlmyaouz[address] [place], [place] [address]Dr. Farhat Leal RBC 4.30 106/ul Critically low 4.70-6.10 [facility] Comment on above: Performed By: #### C BC ####[facility] Zjxmidpnic1397 [place] [address]Dr. Farhat Leal WBC 7.2 103/ul Normal 4.0-11.0 [facility] Comment on above: Performed By: #### C BC ####[facility] Otwrxiwelp[address] [place], [place] [address]Dr. Farhat Leal PTT HEPARIN MONITORon 2021 aPTT Coag (Bld) [Time] 26.7 s Critically low 39.5-54.2 [facility] Comment on above: Performed By: #### P TTHEP ####[facility] Fivmpvfhpl[address] [place], [place] [address]Dr. Farhat Leal aPTT Coag (Bld) [Time] 121.0 s Critically high 39.5-54. 2 [facility] Comment on above: Performed By: #### P TTHEP ####[facility] Btxravpura[address] [place], [place] [address]Dr. Farhat Leal aPTT Coag (Bld) [Time] 27.6 s Critically low 39.5-54.2 [facility] Comment on above: Performed By: #### P TTHEP ####[facility] Wnveiqeguk[address] [place], [place] [address]Dr. Farhat Leal aPTT Coag (Bld) [Time] 139.0 s Critically high 39.5-54. 2 [facility] Comment on above: Performed By: #### P TTHEP ####[facility] Oofkxqjehq[address] [place], [place] [address]Dr. Farhat Leal CBC AUTO DIFFon 09-19-2021 BASO # 0.0 103/ul Normal 0.0-0.1 [facility] Comment on above: Performed By: #### C BC ####[facility] Oujhduzbeu6[address] [place], [place] [address]Dr. Farhat Leal Basophils/100 WBC (Bld) 0.5 % Normal 0.2-2.0 [facility] Comment on above: Performed By: #### C BC ####[facility] Paadueuial8[address] [place], [place] [address]Dr. Farhat Leal EO # 0.2 103/ul Normal 0.0-0.7 [facility] Comment on above: Performed By: #### C BC ####[facility] Yxubzikhuq0347 [place] [address]Dr. Farhat Leal Eosinophils/100 WBC (Bld) 2.6 % Normal 0.9-7.0 [facility] Comment on above: Performed By: #### C BC ####[facility] Cngzrlgozd4831 [place] [address]Dr. Farhat Leal Erythrocyte distribution width (RBC) [Ratio] 12.5 % Normal 11.0-15.0 [facility] Comment on above: Performed By: #### C BC ####[facility] Oxyxrisjks8238 [place] [address]Dr. Farhat Leal Hematocrit (Bld) [Volume fraction] 39.2 % Critically low 42.0-54.0 [facility] Comment on above: Performed By: #### C BC ####[facility] Cyixgjdjju93[address] [place], [place] [address]Dr. Farhat Leal Hemoglobin (Bld) [Mass/Vol] 13.3 g/dL Critically low 14.0-18.0 [facility] Comment on above: Performed By: #### C BC ####[facility] Dxnnsxrhfp9320 [place] [address]Dr. Farhat Leal IG # 0.08 10e3/ul Critically high 0.00-0.03 [facility] Comment on above: Performed By: #### C BC ####[facility] Ysfrdclajt8801 [place] [address]Dr. Farhat Leal IG % 0.9 % Critically high 0.0-0.5 [facility] Comment on above: Performed By: #### C BC ####[facility] Htbtoapxsw[address] [place], [place] [address]Dr. Farhat Leal LYMPH # 1.5 103/ul Normal 1.2-3.8 [facility] Comment on above: Performed By: #### C BC ####[facility] Brtxtlhcje[address] [place], [place] [address]Dr. Farhat Leal Lymphocytes/100 WBC (Bld) 17.2 % Critically low 20.5-60.0 [facility] Comment on above: Performed By: #### C BC ####[facility] Rxhajhouwp7696 [place] [address]Dr. Farhat Leal MANUAL DIFF REQ NO Normal [facility] Comment on above: Performed By: #### C BC ####[facility] Rwprgknthq7081 [place] [address]Dr. Farhat Leal MCH (RBC) [Entitic mass] 31.7 pg Normal 25.9-34.0 [facility] Comment on above: Performed By: #### C BC ####[facility] Vxhdbwoqvs[address] [place], [place] [address]Dr. Farhat Leal MCHC (RBC) [Mass/Vol] 33.9 g/dL Normal 29.9-35.2 [facility] Comment on above: Performed By: #### C BC ####[facility] Cdkvcfbovd[address] [place], [place] [address]Dr. Farhat Leal MCV (RBC) [Entitic vol] 93.3 fL Normal 80.0-94.0 [facility] Comment on above: Performed By: #### C BC ####[facility] Jajhlipnrw[address] [place], [place] [address]Dr. Farhat Leal MONO # 1.2 103/ul Critically high 0.3-0.8 [facility] Comment on above: Performed By: #### C BC ####[facility] Okdnrssuzl[address] [place], [place] [address]Dr. Farhat Leal Monocytes/100 WBC (Bld) 13.7 % Critically high 1.7-12.0 [facility] Comment on above: Performed By: #### C BC ####[facility] Zvbdtucsez[address] [place], [place] [address]Dr. Farhat Leal NEUT # 5.5 103/ul Normal 1.4-6.5 [facility] Comment on above: Performed By: #### C BC ####[facility] Xmdkwcsqiz250[address] [place], [place] [address]Dr. Farhat Leal Neutrophils/100 WBC (Bld) 65.1 % Normal 43.0-75.0 [facility] Comment on above: Performed By: #### C BC ####[facility] Cxqsatvveo8746 [place] [address]Dr. Farhat Leal Platelet mean volume (Bld) [Entitic vol] 9.6 fL Normal 9.5-13.5 [facility] Comment on above: Performed By: #### C BC ####[facility] Umhyuoebcq7600 [place] [address]Dr. Farhat Leal PLT 163 103/ul Normal 150-450 [facility] Comment on above: Performed By: #### C BC ####[facility] Incljppwoe9321 [place] [address]Dr. Farhat Leal RBC 4.20 106/ul Critically low 4.70-6.10 [facility] Comment on above: Performed By: #### C BC ####[facility] Nnziwjjamr[address] [place], [place] [address]Dr. Farhat Leal WBC 8.4 103/ul Normal 4.0-11.0 [facility] Comment on above: Performed By: #### C BC ####[facility] Wzwsyoouyp0669 [place] [address]Dr. Farhat Leal POINT OF CARE GLUCOSEon Glucose [Mass/Vol] 300 mg/dL Critically high 74-106 [facility] Comment on above: Performed By: #### P OCGLUC ####[facility] Jlbdhamzdp[address] [place], [place] [address]Dr. Farhat Elvis POTASSIUMon 09-19-2021 Potassium [Moles/Vol] 4.9 mmol/L Normal 3.5-5.1 [facility] Comment on above: Performed By: #### K ####[facility] Upotzdlbpg18[address] [place], [place] [address]Dr. Farhat Leal PTT HEPARIN MONITORon 2021 aPTT Coag (Bld) [Time] 23.4 s Critically low 39.5-54.2 [facility] Comment on above: Result Comment: repe ated Performed By: #### P TTHEP ####[facility] Gdbaappkoq[address] [place], [place] [address]Dr. Farhat Leal aPTT Coag (Bld) [Time] 101.2 s Critically high 39.5-54. 2 [facility] Comment on above: Performed By: #### P TTHEP ####[facility] Eshrawsano[address] [place], [place] [address]Dr. Farhat Leal aPTT Coag (Bld) [Time] 81.0 s Critically high 39.5-54. 2 [facility] Comment on above: Result Comment: Test Repeated. Critical Value Verified Performed By: #### P TTHEP ####[facility] Fflcuqfimi[address] [place], [place] [address]Dr. Farhat Leal CBC AUTO DIFFon 09-18-2021 BASO # 0.0 103/ul Normal 0.0-0.1 [facility] Comment on above: Performed By: #### C BC ####[facility] Qznmjejdjo15[address] [place], [place] [address]Dr. Madelynlorri Leal Basophils/100 WBC (Bld) 0.4 % Normal 0.2-2.0 [facility] Comment on above: Performed By: #### C BC ####[facility] Qbbvnyoebb[address] [place], [place] [address]Dr. Farhat Leal EO # 0.1 103/ul Normal 0.0-0.7 [facility] Comment on above: Performed By: #### C BC ####[facility] Yxeggezgup[address] [place], [place] [address]Dr. Madelynlorri Leal Eosinophils/100 WBC (Bld) 0.8 % Critically low 0.9-7.0 [facility] Comment on above: Performed By: #### C BC ####[facility] Nejujpzhyy[address] [place], [place] [address]Dr. Farhat Leal Erythrocyte distribution width (RBC) [Ratio] 12.4 % Normal 11.0-15.0 [facility] Comment on above: Performed By: #### C BC ####[facility] Iyfzloxvog8742 [place] [address]Dr. Madelynlorri Leal Hematocrit (Bld) [Volume fraction] 41.7 % Critically low 42.0-54.0 [facility] Comment on above: Performed By: #### C BC ####[facility] Lwqisovxxr4745 [place] [address]Dr. Farhat Leal Hemoglobin (Bld) [Mass/Vol] 14.1 g/dL Normal 14.0-18.0 [facility] Comment on above: Performed By: #### C BC ####[facility] Pfgheoabla2123 [place] [address]Dr. Farhat Leal IG # 0.06 10e3/ul Critically high 0.00-0.03 [facility] Comment on above: Performed By: #### C BC ####[facility] Gwqxfhdtlh5450 [place] [address]Dr. Farhat Leal IG % 0.6 % Critically high 0.0-0.5 [facility] Comment on above: Performed By: #### C BC ####[facility] Bmrcnvxjzt2061 [place] [address]Dr. Farhat Leal LYMPH # 0.6 103/ul Critically low 1.2-3.8 [facility] Comment on above: Performed By: #### C BC ####[facility] Eqedgborht5958 [place] [address]Dr. Farhat Leal Lymphocytes/100 WBC (Bld) 6.5 % Critically low 20.5-60.0 [facility] Comment on above: Performed By: #### C BC ####[facility] Jqlmjqlnmc5245 [place] [address]Dr. Farhat Leal MANUAL DIFF REQ NO Normal [facility] Comment on above: Performed By: #### C BC ####[facility] R[address]kktnzkpz[address] [place], [place] [address]Dr. Farhat Leal MCH (RBC) [Entitic mass] 31.6 pg Normal 25.9-34.0 [facility] Comment on above: Performed By: #### C BC ####[facility] Vvgdibimaj7421 [place] [address]Dr. Farhat Leal MCHC (RBC) [Mass/Vol] 33.8 g/dL Normal 29.9-35.2 [facility] Comment on above: Performed By: #### C BC ####[facility] Fydrhqmbse2070 [place] [address]Dr. Farhat Leal MCV (RBC) [Entitic vol] 93.5 fL Normal 80.0-94.0 [facility] Comment on above: Performed By: #### C BC ####[facility] Zqgtalswny0122 [place] [address]Dr. Farhat Leal MONO # 1.0 103/ul Critically high 0.3-0.8 [facility] Comment on above: Performed By: #### C BC ####[facility] Cmvtbwoyoi7218 [place] [address]Dr. Farhat Leal Monocytes/100 WBC (Bld) 10.4 % Normal 1.7-12.0 [facility] Comment on above: Performed By: #### C BC ####[facility] Csvfzryfxw6964 [place] [address]Dr. Farhat Leal NEUT # 7.8 103/ul Critically high 1.4-6.5 [facility] Comment on above: Performed By: #### C BC ####[facility] Hukguntvtg1322 [place] [address]Dr. Farhat Leal Neutrophils/100 WBC (Bld) 81.3 % Critically high 43.0-75.0 [facility] Comment on above: Performed By: #### C BC ####[facility] Dpbngbswvj8993 [place] [address]Dr. Farhat Leal Platelet mean volume (Bld) [Entitic vol] 9.9 fL Normal 9.5-13.5 [facility] Comment on above: Performed By: #### C BC ####[facility] Dspebjdaxm2062 [place] [address]Dr. Farhat Leal PLT 169 103/ul Normal 150-450 [facility] Comment on above: Performed By: #### C BC ####[facility] Hnpjexqcfb9197 [place], [place] [address]Ro. Farhat Leal RBC 4.46 106/ul Critically low 4.70-6.10 [facility] Comment on above: Performed By: #### C BC ####[facility] Nujneeapeb5590 [place], [place] [address]Hq. Farhat Leal WBC 9.6 103/ul Normal 4.0-11.0 [facility] Comment on above: Performed By: #### C BC ####[facility] Ccbygsxxkp3454 [place] [address]Dr. Farhat Leal BASO # 0.0 103/ul Normal 0.0-0.1 [facility] Comment on above: Performed By: #### C BC ####[facility] Fgsbarlhis9808 [place] [address]Dr. Farhat Leal Basophils/100 WBC (Bld) 0.4 % Normal 0.2-2.0 [facility] Comment on above: Performed By: #### C BC ####[facility] Vufunaqkpx8576 [place] [address]Dr. Farhat Leal EO # 0.1 103/ul Normal 0.0-0.7 [facility] Comment on above: Performed By: #### C BC ####[facility] Znlhurddtf5093 [place] [address]Dr. Farhat Leal Eosinophils/100 WBC (Bld) 1.1 % Normal 0.9-7.0 [facility] Comment on above: Performed By: #### C BC ####[facility] Cleexiqkio1632 [place] [address]Dr. Farhat Leal Erythrocyte distribution width (RBC) [Ratio] 12.6 % Normal 11.0-15.0 [facility] Comment on above: Performed By: #### C BC ####[facility] Chctiyipqq2194 [place] [address]Dr. Farhat Leal Hematocrit (Bld) [Volume fraction] 40.8 % Critically low 42.0-54.0 [facility] Comment on above: Performed By: #### C BC ####[facility] Omtnmnbhnf5445 [place] [address]Dr. Farhat Leal Hemoglobin (Bld) [Mass/Vol] 13.6 g/dL Critically low 14.0-18.0 [facility] Comment on above: Performed By: #### C BC ####[facility] Akfkfsukkq4731 [place] [address]Dr. Farhat Leal IG # 0.08 10e3/ul Critically high 0.00-0.03 [facility] Comment on above: Performed By: #### C BC ####[facility] Ezowakonzy8986 [place] [address]Dr. Farhat Leal IG % 0.9 % Critically high 0.0-0.5 [facility] Comment on above: Performed By: #### C BC ####[facility] [address]xqsqrcoyy[address] [place], [place] [address]Dr. Farhat Leal LYMPH # 0.8 103/ul Critically low 1.2-3.8 [facility] Comment on above: Performed By: #### C BC ####[facility] Alefmzpkfw6510 [place] [address]Dr. Farhat Leal Lymphocytes/100 WBC (Bld) 8.7 % Critically low 20.5-60.0 [facility] Comment on above: Performed By: #### C BC ####[facility] Khtpnhjgvw4048 [place] [address]Dr. Farhat Leal MANUAL DIFF REQ NO Normal [facility] Comment on above: Performed By: #### C BC ####[facility] Yazlakrcqb38[address] [place], [place] [address]Dr. Farhat Leal MCH (RBC) [Entitic mass] 31.6 pg Normal 25.9-34.0 [facility] Comment on above: Performed By: #### C BC ####[facility] Snrvzwcvkm9645 [place] [address]Dr. Farhat Leal MCHC (RBC) [Mass/Vol] 33.3 g/dL Normal 29.9-35.2 [facility] Comment on above: Performed By: #### C BC ####[facility] Pqyqmexujz4559 [place] [address]Dr. Farhat Leal MCV (RBC) [Entitic vol] 94.9 fL Critically high 80.0-94.0 [facility] Comment on above: Performed By: #### C BC ####[facility] Cjscuqijnc2964 [place] [address]Dr. aFrhat Leal MONO # 1.0 103/ul Critically high 0.3-0.8 [facility] Comment on above: Performed By: #### C BC ####[facility] Utnyfnddpl9878 [place] [address]Dr. Farhat Leal Monocytes/100 WBC (Bld) 11.3 % Normal 1.7-12.0 [facility] Comment on above: Performed By: #### C BC ####[facility] Psrjspukzp[address] [place], [place] [address]Dr. Farhat Leal NEUT # 6.9 103/ul Critically high 1.4-6.5 [facility] Comment on above: Performed By: #### C BC ####[facility] [address]ayzvhti[address] [place], [place] [address]Dr. Farhat Leal Neutrophils/100 WBC (Bld) 77.6 % Critically high 43.0-75.0 [facility] Comment on above: Performed By: #### C BC ####[facility] Bxtstvg[address] [place], [place] [address]Dr. Farhat Leal Platelet mean volume (Bld) [Entitic vol] 9.7 fL Normal 9.5-13.5 [facility] Comment on above: Performed By: #### C BC ####[facility] Amovnaxmjr38[address] [place], [place] [address]Dr. Farhat Leal PLT 171 103/ul Normal 150-450 [facility] Comment on above: Performed By: #### C BC ####[facility] Ovwrwhwuaz[address] [place], [place] [address]Dr. Farhat Leal RBC 4.30 106/ul Critically low 4.70-6.10 [facility] Comment on above: Performed By: #### C BC ####[facility] Pkhrjpiovs8554 [place], [place] [address]He. Farhat Leal WBC 8.9 103/ul Normal 4.0-11.0 [facility] Comment on above: Performed By: #### C BC ####[facility] Kivyamlvxt7939 [place], [place] [address]Ye. Farhat Leal Covid-19 PCR (CVDTBH)on SARS-CoV-2 (COVID-19) RNA JOSH+probe Ql (Unsp spec) Not detected Normal NOT DETECTED [facility] Comment on above: Result Comment: When [...] for this test is supported by the [employer] of Health and Human Service's declaration that [...] be used). Performed By: #### C VDTBH ####[facility] Oiwvzqozph6978 [place] [address]Dr. Madelynlorri Leal PROF 14(COMP METB)on 022 Albumin [Mass/Vol] 2.6 g/dL Critically low 3.4-5.0 [facility] Comment on above: Performed By: #### C MP ####[facility] Jpetwrrhwx2374 [place] [address]Dr. Madelynlorri Leal Albumin/Globulin [Mass ratio] 0.7 {ratio} Normal [facility] Comment on above: Performed By: #### C MP ####[facility] Vbernfyehe0150 [place] [address]Dr. Farhat Leal ALP [Catalytic activity/Vol] 88 U/L Normal 46-116 [facility] Comment on above: Performed By: #### C MP ####[facility] Zrvfuqnegd4627 [place] [address]Dr. Farhat Leal ALT [Catalytic activity/Vol] 15 U/L Critically low 16-63 [facility] Comment on above: Performed By: #### C MP ####[facility] Toelefcbpk5584 [place] [address]Dr. Farhat Elvis Anion gap [Moles/Vol] 11.7 mmol/L Normal [facility] Comment on above: Performed By: #### C MP ####[facility] Twprngycgp8006 [place] [address]Dr. Farhat Elvis AST [Catalytic activity/Vol] 25 U/L Normal 15-37 [facility] Comment on above: Performed By: #### C MP ####[facility] Pkkjukoxsx7818 [place] [address]Dr. Farhat Elvis Bilirubin [Mass/Vol] 0.6 mg/dL Normal 0.2-1.0 [facility] Comment on above: Performed By: #### C MP ####[facility] Kxaqbultui6398 [place] [address]Dr. Farhat Elvis Calcium [Mass/Vol] 8.9 mg/dL Normal 8.5-10.1 [facility] Comment on above: Performed By: #### C MP ####[facility] Zirunqyaaa1921 [place] [address]Dr. Farhat Elvis Chloride [Moles/Vol] 93 mmol/L Critically low 98-107 [facility] Comment on above: Performed By: #### C MP ####[facility] Twonrubxag7598 [place] [address]Dr. Farhat Leal CO2 [Moles/Vol] 28.9 mmol/L Normal 21.0-32.0 [facility] Comment on above: Performed By: #### C MP ####[facility] [address] [place] [address]Dr. Farhat Leal Creatinine [Mass/Vol] 2.09 mg/dL Critically high 0.70-1.30 [facility] Comment on above: Performed By: #### C MP ####[facility] [address] [place] [address]Dr. Farhat Leal EGFR-AF QATARI 38 mL/min/1.73m2 Critically low >=60 [facility] Comment on above: Performed By: #### C MP ####[facility] [address] [place] [address]Dr. Farhat Elvis EGFR-NON AF QATARI 31 mL/min/1.73m2 Critically low >=60 [facility] Comment on above: Performed By: #### C MP ####[facility] [address] [place], [place] [address]Dr. Farhat Elvis Globulin (S) [Mass/Vol] 3.7 g/dL Normal [facility] Comment on above: Performed By: #### C MP ####[facility] Ke[address] [place], [place] [address]Dr. Farhat Elvis Glucose [Mass/Vol] 214 mg/dL Critically high 74-106 T [facility] Comment on above: Performed By: #### C MP ####[facility] [address]cr[address] [place], [place] [address]Dr. Madelynlorri Elvis Potassium [Moles/Vol] 5.6 mmol/L Critically high 3.5-5.1 [facility] Comment on above: Performed By: #### C MP ####[facility] [address] [place], [place] [address]Dr. Farhat Leal Protein [Mass/Vol] 6.3 g/dL Critically low 6.4-8.2 Th [facility] Comment on above: Performed By: #### C MP ####[facility] X[address]xnrf[address] [place], [place] [address]Dr. Madelynlorri Elvis Sodium [Moles/Vol] 128 mmol/L Critically low 136-145 Th [facility] Comment on above: Performed By: #### C MP ####[facility] B[address] [place], [place] [address]Dr. Farhat Leal Urea nitrogen [Mass/Vol] 65.0 mg/dL Critically high 7.0-18.0 [facility] Comment on above: Performed By: #### C MP ####[facility] Z[address]kw[address] [place], [place] [address]Dr. Farhat Leal Urea nitrogen/Creatinine [Mass ratio] 31.1 mg/mg Normal [facility] Comment on above: Performed By: #### C MP ####[facility] P[address]wtyjtby[address] [place], [place] [address]Dr. Madelynlorri Elvis Albumin [Mass/Vol] 2.5 g/dL Critically low 3.4-5.0 Th e [facility] Comment on above: Performed By: #### T MYRIAM, CMP ####[facility] V[address]usq[address] [place], [place] [address]Dr. Farhat Leal Albumin/Globulin [Mass ratio] 0.7 {ratio} Normal [facility] Comment on above: Performed By: #### T MYRIAM, CMP ####[facility] Hgjjjwuoj[address] [place], [place] [address]Dr. Madelynlorri Leal ALP [Catalytic activity/Vol] 83 U/L Normal 46-116 [facility] Comment on above: Performed By: #### T MYRIAM, CMP ####[facility] Jvzfpohrrs[address] [place], [place] [address]Dr. Farhat Leal ALT [Catalytic activity/Vol] 16 U/L Normal 16-63 [facility] Comment on above: Performed By: #### T MYRIAM, CMP ####[facility] Jdqwlcssoq[address] [place], [place] [address]Dr. Farhat Leal Anion gap [Moles/Vol] 9.7 mmol/L Normal [facility] Comment on above: Performed By: #### T MYRIAM, CMP ####[facility] Snqrmpacas[address] [place], [place] [address]Dr. Farhat Leal AST [Catalytic activity/Vol] 27 U/L Normal 15-37 [facility] Comment on above: Performed By: #### T SH, CMP ####[facility] Sm[address]bos[address] [place], [place] [address]Dr. Farhat Leal Bilirubin [Mass/Vol] 0.5 mg/dL Normal 0.2-1.0 [facility] Comment on above: Performed By: #### T SH, CMP ####[facility] Tw[address]yzpvz[address] [place], [place] [address]Dr. Farhat Leal Calcium [Mass/Vol] 8.8 mg/dL Normal 8.5-10.1 [facility] Comment on above: Performed By: #### T SH, CMP ####[facility] Vlqrjytqzn[address] [place], [place] [address]Dr. Farhat Leal Chloride [Moles/Vol] 95 mmol/L Critically low 98-107 [facility] Comment on above: Performed By: #### T MYRIAM, CMP ####[facility] Egqickcxrm[address] [place], [place] [address]Dr. Farhat Leal CO2 [Moles/Vol] 30.5 mmol/L Normal 21.0-32.0 [facility] Comment on above: Performed By: #### T MYRIAM, CMP ####[facility] Phzrkodcgh[address] [place], [place] [address]Dr. Farhat Leal Creatinine [Mass/Vol] 2.18 mg/dL Critically high 0.70-1.30 [facility] Comment on above: Performed By: #### T MYRIAM, CMP ####[facility] Onrirbenmf[address] [place], [place] [address]Dr. Farhat Leal EGFR-AF QATARI 36 mL/min/1.73m2 Critically low >=60 [facility] Comment on above: Performed By: #### T MYRIAM, CMP ####[facility] I[address]fl[address] [place], [place] [address]Dr. Farhat Leal EGFR-NON AF QATARI 30 mL/min/1.73m2 Critically low >=60 [facility] Comment on above: Performed By: #### T SH, CMP ####[facility] Z[address]ybwk[address] [place], [place] [address]Dr. Farhat Leal Globulin (S) [Mass/Vol] 3.5 g/dL Normal [facility] Comment on above: Performed By: #### T MYRIAM, CMP ####[facility] [address] [place] [address]Dr. Madelynlorri Leal Glucose [Mass/Vol] 141 mg/dL Critically high 74-106 T [facility] Comment on above: Performed By: #### T SH, CMP ####[facility] Qvwopj[address] [place], [place] [address]Dr. Farhat Leal Potassium [Moles/Vol] 5.2 mmol/L Critically high 3.5-5.1 [facility] Comment on above: Performed By: #### T SH, CMP ####[facility] Qius[address]wo[address] [place], [place] [address]Dr. Farhat Leal Protein [Mass/Vol] 6.0 g/dL Critically low 6.4-8.2 [facility] Comment on above: Performed By: #### T MYRIAM, CMP ####[facility] Mqhmbstjml[address] [place], [place] [address]Dr. Farhat Leal Sodium [Moles/Vol] 130 mmol/L Critically low 136-145 [facility] Comment on above: Performed By: #### T MYRIAM, CMP ####[facility] Rcud[address]kilk[address] [place], [place] [address]Dr. Farhat Leal Urea nitrogen [Mass/Vol] 63.0 mg/dL Critically high 7.0-18.0 [facility] Comment on above: Performed By: #### T MYRIAM, CMP ####[facility] [address] [place], [place] [address]Dr. Farhat Leal Urea nitrogen/Creatinine [Mass ratio] 28.9 mg/mg Normal [facility] Comment on above: Performed By: #### T MYRIAM, CMP ####[facility] Hxlfxmis[address] [place], [place] [address]Dr. Farhat Leal PROTIMEon 09-18-2021 INR Coag (PPP) [Relative time] 1.06 {INR} Normal [facility] Comment on above: Performed By: #### P T, PTT ####[facility] W[address] [place], [place] [address]Dr. Farhat Leal INR GUIDELINES SEE BELOW Normal [facility] Comment on above: Result Comment: MALINA RED INR: 2.0 - 3.0 CONDITIONS NOT LISTED BELOW 2.5 - 3.5 FOR PROSTHETIC HEART VALVE REPLACEMENT 2.5 - 3.5 RECURRENT THROMBOSIS Performed By: #### P T, PTT ####[facility] [address] [place] [address]Dr. Farhat Leal PT Coag (PPP) [Time] 11.4 s Normal 9.0-11.6 [facility] Comment on above: Performed By: #### P T, PTT ####[facility] [address] [place] [address]Dr. Madelynlorri Leal PTTon 09-18-2021 aPTT Coag (Bld) [Time] 27.9 s Normal 22.3-36.2 [facility] Comment on above: Performed By: #### P T, PTT ####[facility] [address] [place] [address]Dr. Farhat Leal TSHon 09-18-2021 TSH 7.099 uIU/mL Critically high 0.358-3.740 [facility] Comment on above: Performed By: #### T SH, CMP ####[facility] [address] [place], [place] [address]Dr. Farhat Leal US SALOME DOP LEG RTon 09-19-19 US SALOME DOP LEG RT Normal [facility] XR CHEST 1 Von 09-18-2021 XR CHEST 1 V Normal [facility] XR HIP RT 2 3V W PELVISon XR HIP RT 2 3V W PELVIS Normal [facility] Vital Signs Date Time Vital Sign Value Performing Clinician Facility 03-18-2023 13:37-0500 Body temperature 98.01 [degF] Horatio IntelligentMDx DO Work Phone: [facility] 03-18-2023 13:37-0500 Diastolic blood pressure 64 mm[Hg] Horatio Dctioick DO Work Phone: [facility] 03-18-2023 13:37-0500 Heart rate 72 /min [facility] DO Work Phone: [facility] 03-18-2023 13:37-0500 SaO2% (BldA) [Mass fraction] 98 % Ni Sandhuick DO Work Phone: [facility] 03-18-2023 13:37-0500 Systolic blood pressure 118 mm[Hg] Ni Whiteznick DO Work Phone: [facility] 07-20-2022 13:35-0400 Body temperature 97.4 [degF] DO Devon Ball Work Phone: [facility] 07-20-2022 13:35-0400 Diastolic blood pressure 50 mm[Hg] DO Devon Ball Work Phone: [facility] 07-20-2022 13:35-0400 Heart rate 67 /min DO Devon Ball Work Phone: [facility] 07-20-2022 13:35-0400 Respiratory rate 20 /min DO Devon Ball Work Phone: [facility] 07-20-2022 13:35-0400 Systolic blood pressure 98 mm[Hg] DO Devon Ball Work Phone: [facility] 06-29-2022 14:46-0400 Body height 193.04 cm DO Devon Ball Work Phone: [facility] 02-26-2022 13:11-0500 Body temperature 96.6 [degF] Hina Peterson MD Work Phone: [facility] 02-26-2022 13:11-0500 Diastolic blood pressure 75 mm[Hg] Hina Peterson MD Work Phone: [facility] 02-26-2022 13:11-0500 Heart rate 75 /min Hina Peterson MD Work Phone: [facility] 02-26-2022 13:11-0500 Systolic blood pressure 88 mm[Hg] Hina Peterson MD Work Phone: [facility] 02-05-2022 08:29-0500 Body temperature 96.69 [degF] [facility] Work Phone: [facility] 02-05-2022 08:29-0500 Diastolic blood pressure 42 mm[Hg] [facility] Work Phone: [facility] 02-05-2022 08:29-0500 Heart rate 79 /min [facility] Work Phone: [facility] 02-05-2022 08:29-0500 SaO2% (BldA) [Mass fraction] 100 % [facility] Work Phone: [facility] 02-05-2022 08:29-0500 Systolic blood pressure 72 mm[Hg] [facility] Work Phone: [facility] 01-12-2022 11:00-0500 Diastolic blood pressure 54 mm[Hg] Alissa Major [employer].HEEL [employer] Work Phone: [facility] 01-12-2022 11:00-0500 Heart rate 88 /min Alissa Major [employer].HEEL [employer] Work Phone: [facility] 01-12-2022 11:00-0500 SaO2% (BldA) [Mass fraction] 93 % Alissa Major [employer].HEEL WHEEL[employer] Work Phone: [facility] 01-12-2022 11:00-0500 Systolic blood pressure 96 mm[Hg] Alissa Major [employer].HEEL WHE[employer] Work Phone: [facility] 01-12-2022 10:12-0500 Body temperature 97.9 [degF] Alissa Major [employer].HEEL WHEELER Work Phone: [facility] 01-12-2022 10:12-0500 Respiratory rate 18 /min Alissa Major [employer].HEEL WHEEL[employer] Work Phone: [facility] 11-17-2021 15:59-0400 Body height 193 cm No Reeder DO Work Phone: [facility] 11-17-2021 15:59-0400 Body weight 111.58 kg No Redeer DO Work Phone: [facility] 11-17-2021 15:59-0400 Diastolic blood pressure 59 mm[Hg] No Reeder DO Work Phone: [facility] 11-17-2021 15:59-0400 Heart rate 86 /min No Reeder DO Work Phone: [facility] 11-17-2021 15:59-0400 SaO2% (BldA) [Mass fraction] 97 % No Reeder DO Work Phone: [facility] 11-17-2021 15:59-0400 Systolic blood pressure 104 mm[Hg] No Reeder DO Work Phone: [facility] Encounters Encounter Date Encounter Type Care Provider Facility Start: 05-19-2023 End: 05-19-2023 ambulatory [facility] Start: 04-11-2023 End: 04-11-2023 ambulatory Devon Moreira Other [employer] Other Start: 04-11-2023 Telephone encounter Devon Moreira [facility] Start: 03-18-2023 End: 03-18-2023 ambulatory NI CABRERA Not Available Start: 03-18-2023 End: 03-18-2023 Office outpatient visit 25 minutes Ni Cabrera DO Work Phone: [facility] [address] Comment on above: Type 1 [...] 02-17-2023 End: 02-17-2023 ambulatory Devon Moreira Other [employer] Other Start: 02-17-2023 Telephone encounter Devon NUNEZ [facility] Start: 01-14-2023 End: 01-14-2023 ambulatory Devon Moreira Other [employer] Other Start: 01-14-2023 Sbsq nursing facil c are/day minor complj 15 min Devon Moreira [facility] Start: 12-10-2022 End: 12-10-2022 ambulatory Devon Moreira Other [employer] Other Start: 12-10-2022 Sbsq nursing facil c are/day minor complj 15 min Devon Moreira [facility] Start: 11-12-2022 End: 11-12-2022 ambulatory Devon Moreira Other [employer] Other Start: 11-12-2022 Sbsq nursing facil c are/day minor complj 15 min [facility] Start: 10-16-2022 Refill Asia Pike MD Work Phone: [facility] Comment on above: Med Change Request Start: 10-12-2022 End: 10-12-2022 ambulatory Devon Moreira Other [employer] Other Start: 10-12-2022 Telephone encounter Devon Moreira [facility] Start: 10-08-2022 End: 10-08-2022 ambulatory Devon Moreira Other [employer] Other Start: 10-08-2022 Sbsq nursing facil c are/day new problem 25 min [facility] Start: 09-22-2022 [facility] Start: 09-10-2022 End: 09-10-2022 ambulatory Devon Moreira Other [employer] Other Start: 09-10-2022 Sbsq nursing facil c are/day new problem 25 min [facility] Start: 09-09-2022 End: 09-09-2022 ambulatory [facility] Start: 08-06-2022 End: 08-06-2022 ambulatory Devon Moreira Other [employer] Other Start: 08-06-2022 Sbsq nursing facil c are/day new problem 25 min [facility] Start: 07-22-2022 End: 07-22-2022 ambulatory Devon Moreira Other [employer] Other Start: 07-22-2022 Telephone encounter Devon NUNEZ [facility] Start: 07-20-2022 End: 07-20-2022 ambulatory Sadia Aguilar Facility:[facility] Start: 07-20-2022 End: 07-20-2022 ambulatory DO Devon Moreira Work Phone: [facility] Work Phone: Start: 07-20-2022 End: 07-20-2022 Discharged Recurring DO Devon Moreira Work Phone: [facility] Work Phone: Start: 07-13-2022 End: 07-13-[address] DEVON MOREIRA Facility:[facility] Start: 07-10-2022 End: 07-10-[address] DEVON MOREIRA Facility:[facility] Start: 07-03-2022 End: 07-03-[address] DEVON MOREIRA Facility:[facility] Start: 06-26-2022 End: 06-26-[address] DEVON MOREIRA Facility:[facility] Start: 06-26-2022 End: 06-26-[address] DEVON MOREIRA Facility:[facility] Start: 06-25-2022 End: 06-25-2022 ambulatory Devon Moreira Other [employer] Other Start: 06-25-2022 Sbsq nursing facil c are/day minor complj 15 min Devon Moreira [facility] Start: 06-19-2022 End: 06-19-[address] DEVON MOREIRA Facility:[facility] Start: 06-15-2022 End: 07-15-2022 ambulatory SHAIKH Kate MURRAY Facility:[facility] Start: 06-12-2022 End: 06-12-[address] DOCTOR WALSH Facility:[facility] Start: 06-05-2022 Sbsq nursing facil c are/day new problem 25 min Devon Moreira [facility] Start: 06-05-2022 End: 06-05-[address] DEVON MOREIRA [facility] [employer] Other Start: 05-29-2022 End: 05-29-[address] DEVON MOREIRA Facility:[facility] Start: 05-22-2022 End: 05-22-[address] DEVON MOREIRA Facility:[facility] Start: 05-20-2022 End: 05-20-[address] DEVON MOREIRA Facility:[facility] Start: 05-18-2022 End: 06-12-2022 ambulatory SHAIKH Kate MURRAY Facility:[facility] Start: 05-15-2022 End: 05-15-[address] DEVON MOREIRA Facility:[facility] Start: 05-13-2022 End: 05-13-2022 ambulatory Van Olivarez [employer]HEEL WHE[employer] Work Phone: [facility] Comment on above: results Start: 05-13-2022 E-mail encounter fro m caregiver Van Olivarez APRN.HEEL WHEELER Work Phone: [facility] Start: 05-08-2022 End: 05-08-[address] DEVON MOREIRA Facility:[facility] Start: 05-07-2022 End: 05-07-2022 ambulatory Devon Moreira Other [facility] [employer] Other Start: 05-07-2022 Sbs nursing facil c are/day new problem 25 min Devon Moreira [facility] Start: 05-06-2022 End: 05-06-[address] [...] MOREIRA Facility:[facility] Start: 04-02-2022 ambulatory Van cortes APRN.HEEL WHEELER Work Phone: [facility] Start: 04-01-2022 End: 04-01-[address] DEVON MOREIRA Facility:[facility] Start: 03-22-2022 Refill Asia Pike MD Work Phone: [facility] Comment on above: Med Change Request Start: 03-21-2022 ambulatory SHAIKH Kate MURRAY Facilit y:[facility]1 Start: 03-11-2022 End: 03-11-[address] DEVON MOREIRA Facility:[facility] Start: 02-27-2022 Refill Arnulfovic [facility] Comment on above: Rx [...] Start: 02-05-2022 End: 02-06-2022 ambulatory ARTUR GARCIAERVARY Facility:[facility] Start: 02-05-2022 End: 02-05-2022 Patient encounter procedure [facility] Work Phone: [facility] Comment on above: Kidney replaced by t ransplant (Primary Dx); 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; USP current use of immunosuppressive drug Start: 01-26-2022 End: 01-26-[address] DEVON MOREIRA Facility:[facility] Start: 01-20-2022 Telephone encounter Van Olivarez APRN.HEEL WHEELER Work Phone: [facility] Comment on above: Results Start: 01-19-2022 End: 01-19-[address] DEVON MOREIRA Facility:[facility] Start: 01-16-2022 ambulatory SHAIKH Kate MURRAY Facilit y:[facility]1 Start: 01-12-2022 End: 01-12-2022 Subsequent hospital visit by physician Alissa Chavira APRN.HEEL WHEELER Work Phone: [facility] Comment on above: ILIANA (acute kidney in jury) (HCC) [N17.9] Start: 12-30-2021 End: 12-30-2021 ambulatory Paresh Fonseca MD Work Phone: Infectious Disease Comment on above: MRSA bacteremia (Arabella munira Dx); Diabetic foot ulcer with osteomyelitis (HCC) Start: 12-30-2021 End: 12-30-2021 Telemedicine consultation with patient Paresh Fonseca MD Work Phone: [facility] Start: 12-29-2021 End: 12-29-2021 ambulatory [...] Start: 12-08-2021 Orders Only Artur Jennyfer soto [employer]PERINTENDENT TRANSPORTATION.HEEL WHEELER Work Phone: [facility] Comment on above: Kidney replaced by t ransplant (Primary Dx) Start: 12-07-2021 ambulatory Paresh Fonseca MD Work Phone: [facility] Comment on above: CoPat Start (copat s top 12/27/21) Start: 12-05-2021 Telephone encounter Paresh Fonseca MD Work Phone: Infectious Disease Comment on above: Patient Update (evus held discussion/) Start: 12-01-2021 Follow-up encounter [facility] Provider [facility] Start: 12-01-2021 Patient encounter procedure [facility] Prov ider [facility] Start: 11-23-2021 End: 11-28-2021 Evaluation and [...] Start: 11-14-2021 End: 11-15-2021 amb[facility] Start: 10-24-2021 End: 11-15-2021 ambulatory SHAIKH Kate MURRAY Facility:[facility] Start: 10-22-2021 End: 10-23-2021 ambulatory ASHLEY Cortes [facility] Facility:[facility]1 Start: 10-06-2021 ambulatory Van cortes [employer]PER[employer]ENT [employer]SP[employer]ATION.HEEL WHEELER Work Phone: [facility] Start: 09-30-2021 Refill Asia Pike MD Work Phone: [facility] Comment on above: Refill Request Start: 09-19-2021 End: 09-24-2021 Evaluation and management of inpatient DR PROSPER LEES Facility:[facility]1 Start: 09-18-2021 End: 09-19-[address] DEVON MOREIRA Facility:[facility] Start: 07-11-2021 Refill Asia Pike MD Work Phone: [facility] Comment on above: Refill Request Start: 06-05-2021 Telephone encounter Van Olivarez SUPERINTENDENT [employer]SPORTATION.HEEL WHEELER Work Phone: [facility] Comment on above: Results Start: 02-05-2021 End: 02-13-2021 ambulatory UNKNOWN PROVIDER Facility:[facility] Procedures Date Procedure Procedure Detail Performing Clinician Start: 05-19-2023 Follow-up visit Follow-up CAITY IBRAHIM Start: 03-18-2023 Hemoglobin glycosyla rk a1c Ni Cabrera DO Work Phone: Start: 02-05-2022 Creatinine other source Asai Pike MD Work Phone: Start: 02-05-2022 Urnls dip stick/tabl et rgnt auto w/o microscopy Asia Pike MD Work Phone: Start: 01-12-2022 Prothrombin time Alissa Chavira SUPERINTENDENT TRANSPORTATION.HEEL WHEELER Work Phone: Start: 12-01-2021 PACEMAKER CLINIC CHECK [facility] Provider Start: 11-29-2021 Microscopic examinat ion of blood, culture DR PROSPER LEES Comment on above: Performed By: #### B [id number] ####[facility] [address] [place] [address]Dr. Farhat Leal Start: 11-27-2021 Insertion of Infusio [...] transplant KIDNEY TRANSPLANT STATUS Van Olivarez SUPERINTENDENT TRANSPORTATION.HEEL WHEELER Work Phone: History of renal transplant Kidney replaced by transplant Arturadrian Chen SUPERINTENDENT TRANSPORTATION.HEEL WHEELER Work Phone: History of renal transplant Kidney replaced by transplant [facility] Work Phone: History of renal transplant Devon Moreira Other History of renal transplant Kidney replaced by transplant Asia Pike MD Work Phone: History of renal transplant Devon Moreira Other Plan of Treatment Date Care Activity Detail Author Start: 06-17-2023 End: 06-17-2023 Patient encounter procedure 06/17/2023 2:15 PM EDT Office Visit [facility] [address] [place] [address] Ni Cabrera DO [address] [place] [address] [facility] [address] Start: 06-16-2023 Hemoglobin A1c measurement Diabetes: Hemoglobin A1C [facility] Start: 02-26-2023 BP CONTROLLED (<130/80) BP CONTROLLE D (<130/80) [facility] Start: 02-05-2023 BP CONTROLLED (<130/80) BP CONTROLLE D (<130/80) [facility] Start: 01-12-2023 BP CONTROLLED (<130/80) BP CONTROLLE D (<130/80) [facility] Start: 11-17-2022 BP CONTROLLED (<130/80) BP CONTROLLE D (<130/80) [facility] Start: 10-16-2022 Influenza vaccination C [facility] Start: 05-15-2022 Medicare Annual Wellness (AWV) Medicare Annual Wellness (AWV) [facility] Start: 04-08-2022 BP CONTROLLED (<130/80) BP CONTROLLE D (<130/80) [facility] Start: 02-15-2022 ADVANCE DIRECTIVE DISCUSSION ADVANCE DIRECTIVE DISCUSSION [facility] Start: 02-15-2022 DEPRESSION ASSESSMENT DEPRESSION ASS ESSMENT [facility] Start: 02-05-2022 COVID-19 VACCINE (5 - Yung risk series) COVID-19 VACCINE (5 - Yung risk series) [facility] Start: 11-27-2021 COVID-19 VACCINE (4 - Booster for Yung series) COVID-19 VACCINE (4 - Booster for Yung series) [facility] Start: 11-04-2021 Hemoglobin A1c/Hemoglobin.total in Blood HBA1C [facility] Start: 10-16-2021 Influenza vaccination C [facility] Start: 03-26-2021 COVID-19 VACCINE (3 - Yung risk 3-dose series) COVID-19 VACCINE (3 - Yung risk 3-dose series) [facility] Start: 03-26-2021 COVID-19 VACCINE (3 - Yung risk series) COVID-19 VACCINE (3 - Yung risk series) [facility] Start: 02-15-2021 ADVANCE DIRECTIVE DISCUSSION ADVANCE DIRECTIVE DISCUSSION [facility] Start: 02-15-2021 DEPRESSION ASSESSMENT DEPRESSION ASS ESSMENT [facility] Start: 01-05-2016 Hepatitis B screening URINE AL BUMIN:CREATININE RATIO [facility] Start: 07-31-2015 Pneumococcal Vaccine : 65+ Years (3 - PCV) Pneumococcal Vaccine: 65+ Years (3 - PCV) [facility] Start: 04-06-2015 Hemoglobin A1c/Hemoglobin.total in Blood HBA1C [facility] Start: 11-22-2010 Hepatitis B surface antibody level LDL CHOLESTEROL [facility] Start: 2009 ADULT PREVNAR-13 ADULT PREVNAR-13 Cl [facility] Start: 2009 PNEUMOVAX AGE 65 AND OVER WITH 5YR LOOKBACK (#1) PNEUMOVAX AGE 65 AND OVER WITH 5YR LOOKBACK (#1) [facility] Start: 1994 SHINGRIX VACCINE (1 of 2) SHINGRIX VACCINE (1 of 2) [facility] Start: 10-18-1963 HEPATITIS A (1 of 2 - Risk 2-dose series) HEPATITIS A (1 of 2 - Risk 2-dose series) [facility] Start: 10-18-1963 Hepatitis A Vaccine (1 of 2 - Risk 2-dose series) Hepatitis A Vaccine (1 of 2 - Risk 2-dose series) [facility] Start: 10-18-1963 SHINGRIX VACCINE (1 of 2) SHINGRIX VACCINE (1 of 2) [facility] Start: 10-18-1963 Urine microalbumin profile [facility] Start: 1962 ANNUAL PCP TEAM SOFTWARE QUALITY TESTER MATTHEW DISEASE VISIT ANNUAL PCP TEAM CHRONIC DISEASE VISIT [facility] Start: 1956 Adult depression screening assessment DEPRESSION SCREENING [facility] Start: 1954 3 comp foot exam completed DIABETIC FOOT EXAM [facility] Start: 1954 Glaucoma screening Diabetes: R etinopathy Screening [facility] Start: 1954 Hepatitis C antibody , confirmatory test DILATED RETINAL EXAM [facility] Start: 1950 Pneumococcal Vaccine : 65+ (1 - PCV) Pneumococcal Vaccine: 65+ (1 - PCV) [facility] Start: 1950 PNEUMOCOCCAL: 65+ (1 - PCV) PNEUMOCOCCAL: 65+ (1 - PCV) [facility] Start: 1945 HEPATITIS A (1 of 2 - Risk 2-dose series) HEPATITIS A (1 of 2 - Risk 2-dose series) [facility] URINALYSIS, REFLEX MICROSCOPIC URINALYSIS, REFLEX MICROSCOPIC Lab Routine Screening for genitourinary condition Ordered: 10/06/2021 [facility] Work Phone: Comment on above: Ordered: 10/06/2021 URINALYSIS, REFLEX MICROSCOPIC URINALYSIS, REFLEX MICROSCOPIC Lab Routine Screening for genitourinary condition Ordered: 04/02/2022 [facility] Work Phone: Comment on above: Ordered: 04/02/2022 End: 11-17-2022 US LEG ARTERIAL PERIPH UNL VAS LAB US LEG ARTERIAL PERIPH UNL VAS LAB Vascular Lab Routine PAD (peripheral artery disease) (HCC) Nonhealing ulcer of heel (HCC) 1 Occurrences starting 11/17/2021 until 11/17/2022 [facility] Work Phone: Comment on above: 1 Occurrences starti ng 11/17/2021 until 11/17/2022 End: 11-17-2022 US LEG VEIN DVT UNL VAS LAB US LEG VEIN DVT UNL VAS LAB Vascular Lab Routine Acute deep vein thrombosis (DVT) of proximal end of right lower extremity (HCC) 1 Occurrences starting 11/17/2021 until 11/17/2022 [facility] Work Phone: Comment on above: 1 Occurrences starti ng 11/17/2021 until 11/17/2022 [facility] & VAS [facility] & VAS [facility] Immunizations Immunization Date Immunization Notes Care Provider Fa gaston 12-11-2021 COVID-19 booster vaccine, age 12+ yr, bivalent (PFIZER-BIONTLiquidHub) Paresh Fonseca MD Work Phone: [facility] 12-11-2021 influenza, high-dose , quadrivalent vaccine (FLUZONE HIGH DOSE QUADRIVALENT) Paresh Fonseca MD Work Phone: [facility] 12-11-2021 influenza virus vaccine, unspecified formulation [facility] 10-24-2021 influenza, high dose seasonal, preservative-free Ni Petznick DO Work Phone: [facility] 01-19-2019 influenza, high dose seasonal, preservative-free Ni Petznick DO Work Phone: [facility] 11-25-2017 Seasonal trivalent influenza vaccine, adjuvanted, preservative free Ni Petznick DO Work Phone: [facility] 11-05-2016 influenza, high dose seasonal, preservative-free Ni Petznick DO Work Phone: [facility] 07-30-2014 pneumococcal polysaccharide vaccine, 23 valent Ni Petznick DO Work Phone: [facility] 03-09-2011 influenza virus vaccine, unspecified formulation Van Olivarez APRN.HEEL WHEELER Work Phone: [facility] 12-17-2007 influenza virus vaccine, unspecified formulation Van Olivarez SUPERINTENDENT TRANSPORTATION.[facility] Work Phone: [facility] Work Phone: 02-11-2006 influenza virus vaccine, unspecified formulation Van Olivarez SUPERINTENDENT TRANSPORTATION.[facility] Work Phone: [facility] Work Phone: 12-07-2003 influenza virus vaccine, unspecified formulation Van Olivarez SUPERINTENDENT TRANSPORTATION.[facility] Work Phone: [facility] Work Phone: 12-07-2003 pneumococcal polysaccharide vaccine, 23 valent Van Olivarez SUPERINTENDENT TRANSPORTATION.[facility] Work Phone: [facility] Work Phone: NEGATED: Highlighted row has not occurred!12-10-2021 COVID-19 booster vaccine, age 12+ yr, bivalent (PFIZER-BIONTLiquidHub) Paresh Fonseca MD Work Phone: [facility] NEGATED: Highlighted row has not occurred!12-10-2021 influenza, high-dose, quadrivalent vaccine (FLUZONE HIGH DOSE QUADRIVALENT) Paresh Fonseca MD Work Phone: [facility] Payers Date Payer Category Payer Medicare MEDICARE MEDICAR E A AND B [id number] 2009-Present [phone] [address] [address] [place] [address] Medicare [id number] [id number] 2009 Medicare [id number] 1.13.159.2.7.3 .[id number] 2009 Unknown [employer] [place] MEDICARE SUPPLEMENT [id number] 2009-Present [phone] [id number] [employer] [place] [address] Indemnity [id number] [id number].3 .730775.315 2009 Unknown [id number]. 1.13.159.2.7.3 .529823.315 2009 Unknown [id number] 2.16.8 40.1.845394.19 2009 Unknown [id number] 1959 Medicare [id number] 1959 Self-pay 1944 Unknown [id number] 2.16.840.1.808682.3.579.2.732 1944 Unknown [id number] 2.16.840.1.305621.3.579.2.593 1944 Unknown [id number] 2.16.840.1.101757.3.579.2.593 1944 Unknown [id number] 2.16.840.1.492108.3.579.2.593 1944 Unknown [id number] 2.16.840.1.893904.3.579.2.593 1944 Unknown [id number] 2.16.840.1.526487.3.579.2.593 1944 Unknown [id number] 2.16.840.1.454647.3.579.2.593 1944 Unknown [id number] 2.16.840.1.324321.3.579.2.593 1944 Unknown [id number] 2.16.840.1.571480.3.579.2.593 1944 Unknown [id number] 2.16.840.1.513048.3.579.2.593 1944 Unknown [id number] 2.16.840.1.376792.3.579.2.593 1944 Unknown [id number] 2.16.840.1.661900.3.579.2.593 1944 Unknown [id number] 2.16.840.1.120240.3.579.2.593 1944 Unknown [id number] 2.16.840.1.012612.3.579.2.593 1944 Unknown [id number] 2.16.840.1.750208.3.579.2.593 1944 Unknown [id number] 2.16.840.1.782187.3.579.2.593 1944 Unknown [id number] 2.16.840.1.133289.3.579.2.593 1944 Unknown [id number] 2.16.840.1.929734.3.579.2.593 1944 Unknown [id number] 2.16.840.1.056772.3.579.2.593 1944 Unknown [id number] 2.16.840.1.505768.3.579.2.593 1944 Unknown [id number] 2.16.840.1.179237.3.579.2.593 1944 Unknown [id number] 2.16.840.1.815678.3.579.2.593 1944 Unknown [id number] 2.16.840.1.992825.3.579.2.593 1944 Unknown [id number] 2.16.840.1.523068.3.579.2.593 1944 Unknown [id number] 2.16.840.1.298866.3.579.2.593 1944 Unknown [id number] 2.16.840.1.235101.3.579.2.593 1944 Unknown [id number] 2.16.840.1.353071.3.579.2.593 1944 Unknown [id number] 2.16.840.1.512662.3.579.2.593 1944 Unknown [id number] 2.16.840.1.287941.3.579.2.593 1944 Unknown [id number] 2.16.840.1.371454.3.579.2.593 1944 Unknown [id number] 2.16.840.1.185688.3.579.2.593 1944 Unknown [id number] 2.16.840.1.661939.3.579.2.593 1944 Unknown [id number] 2.16.840.1.407592.3.579.2.593 1944 Unknown [id number] 2.16.840.1.726961.3.579.2.593 1944 Unknown [id number] 2.16.840.1.649611.3.579.2.593 1944 Unknown [id number] 2.16.840.1.914945.3.579.2.593 1944 Unknown [id number] 2.16.840.1.100559.3.579.2.593 1944 Unknown [id number] 2.16.840.1.339554.3.579.2.593 1944 Unknown [id number] 2.16.840.1.706409.3.579.2.593 1944 Unknown [id number] 2.16.840.1.695912.3.579.2.593 1944 Unknown [id number] 2.16.840.1.105142.3.579.2.593 1944 Unknown [id number] 2.16.840.1.313258.3.579.2.593 1944 Unknown [id number] 2.16.840.1.462198.3.579.2.593 1944 Unknown [id number] 2.16.840.1.924716.3.579.2.593 1944 Unknown [id number] 2.16.840.1.435987.3.579.2.593 1944 Unknown [id number] 2.16.840.1.280884.3.579.2.593 1944 Unknown [id number] 2.16.840.1.699667.3.579.2.593 1944 Unknown [id number] 2.16.840.1.453940.3.579.2.125 9 Medicare Medicare Outpatient [id number] 2T [id number] Unknown [id number] 2.16.840.1.798569.3.579.2.593 Unknown [id number] 2.16.840.1.183169.3.579.2.593 Unknown [id number] 2.16.840.1.388849.3.579.2.531 Social History Date Type Detail Facility Start: 03-09-2011 End: 07-07-2022 Tobacco smoking status NHIS Ex-smoker [facility] Work Phone: End: 02-15-1975 History of tobacco use Current smoker [facility] Work Phone: End: 02-15-1975 History of tobacco use Cigarette Smoker [facility] Work Phone: Start: 04-08-2021 End: 02-26-2022 Alcohol intake Current drinker of alcohol (finding) [facility] Start: 1945 Sex Assigned At Not on file C [facility] Start: 03-09-2011 End: 10-20-2022 Cigarettes smoked current (pack per day) - Reported 1 [facility] Work Phone: Start: 03-09-2011 End: 02-26-2022 Tobacco use and exposure Smokeless tobacco non-user [facility] Start: 09-25-2021 History SDOH Financial 5 [facility] Start: 09-25-2021 History SDOH Food Worry 1 [facility] Start: 09-25-2021 History SDOH Transpo rt Med 2 [facility] Start: 09-14-2021 End: 01-12-2022 Exposure to SARS-CoV-2 (event) Not sure [facility] Start: 02-26-2022 End: 10-20-2022 Sex Assigned At [facility] Work Phone: Start: 1945 Sex Assigned At Male F [facility] How hard is it for y ou to pay for the very basics like food, housing, medical care, and heating Not hard at all [facility] Work Phone: (I/We) worried shiloh er (my/our) food would run out before (I/we) got money to buy more. Never true [facility] Work Phone: In the past 12 month s, was there a time when you were not able to pay the mortgage or rent on time? No [facility] Work Phone: Start: 03-18-2023 Alcohol intake Ex-drinker (finding) [facility] How often to you hav e a drink containing alcohol? Never [facility] Medical Equipment Procedure Code Equipment Code Equipment Original Text Equipment Identifier Dates Tray Powerline S urecuff 5fr Polyurethane Catheter 1 Lumen Microintroducer - [id number] Start: 12-06-2021 Clinical Notes 06-05-2021 to 05-19-2023 Note Date & Type Note Facility 05-19-2023 Note [place] [facility] Progress Note Reason for visit: follow [...] at about 50-60 systolic. 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 Alvarez 03/2021 Mr. Almonte, [place] , presents to clinic for routine follow [...] of the right coronary artery with robust [id number]-gm-yrveq collaterals. 5. Normal global left ventricular systolic [...] Follow up with Dr. Galvez in the [facility] in the next 2 weeks; he may follow up with Dr. Orosco as needed for interventional issues. 5. Follow up wi (more content not included)... [facility] 04-11-2023 Evaluation note Encounter Date Diagnosis Assessment [...] (ICD-10 - Z89.619) WC dependent. 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 He is being transported by a winch driver. He states he took insulin breakfast and lunch was served early.They gave him his insulin for lunch but he was not very hungry and didn't eat much States bg levels are fluctuating Diet: [facility] provided food Exercise: none Hypoglycemia: he is [...] mellitus with circulatory complication ([facility]) During the appointment today all pertinent labs, [...] without macular edema ([facility]/HCC) Follow up in about 3 months (around [...] mouth in the morning. [id number] Evaluation note* Encounter Date Diagnosis Assessment Notes [...] are maintaining regular scheduled appts with their driver license reviewing officer. No bleeding complications Dec, Hyperlipidemia LDL goal [...] fluid balance and to avoid dehydration. 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 This patient is anticoagulated to prevent thromboembolic events. They are maintaining regular scheduled appts with their driver license reviewing officer. No bleeding complications Nov, Hyperlipidemia LDL goal [...] (current) use of insulin (ICD-10 - Z79.4) [facility] Other 09-28-2023 Evaluation note* Encounter Date Diagnosis [...] are maintaining regular scheduled appts with their driver license reviewing officer. No bleeding complications Oct, Type 1 diabetes [...] - Z94.0) Continue routine surveillance labs. Oct, USP (current) use of insulin (ICD-10 - Z79.4) [facility] Other 09-01-2023 Miscellaneous Notes* Telephone Encounter - Mary Martinez - 10/16/2022 1:08 PM EDT Pharmacy comment: REQUEST FOR 90 DAYS PRESCRIPTION. DX Code Needed. 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 No bleeding complications Sep, Type 1 diabetes [...] risk for cerebrovascular and cardiovascular disease. Sep, USP (current) use of insulin (ICD-10 - Z79.4) Sep, Kidney transplant status (ICD-10 - Z94.0) f/u transplant clinic Continue surveillance labs [facility] Other 08-08-2023 Miscellaneous Notes* Telephone Encounter - Ariadna Mcdowell Tech - 09/22/2022 8:58 AM EDT Pharmacy requesting refills as follows: Requested Prescriptions Pending Prescriptions Disp Refills tacrolimus IR (PROGRAF) 1 mg capsule Sig: Take 1 capsule by mouth DAILY AT 6 PM. Please review and advise. Ariadna Mcdowell, documented in this encounterWilson Health07-27-2023 Evaluation note* Encounter Date Diagnosis Assessment Notes Treatment Notes Treatment Clinical Notes Aug, Longstanding persistent atrial fibrillation (ICD-10 - I48.11) This patient is in NSR or rate controlled. This patient is anticoagulated to prevent thromboembolic events. They are maintaining regular scheduled appts with their driver license reviewing officer. No s/s bleeding Aug, Type 1 diabetes [...] risk for cerebrovascular and cardiovascular disease. Aug, USP (current) use of insulin (ICD-10 - Z79.4) Aug, Kidney transplant status (ICD-10 - Z94.0) Continue close surveillance w/ [facility] Other 07-26-2023 NoteUT Electrophysiology Consult Note Reason [...] at about 50-60 systolic. patient with friend/ winch driver from facility, we will take patient to the ER for evaluation --------- Per dr. Alvarez 03/2021 Mr. Almonte, [place] , presents to clinic for routine follow [...] of the right coronary artery with robust zzkk-tr-cucfz collaterals. 5. Normal global left ventricular systolic [...] Follow up with Dr. Galvez in the [facility] in the next 2 weeks; he may follow up with Dr. Orosco as needed for interventional issues. 5. Follow up with Dr. Devon Moreira as scheduled. PMH: Past Medical History: Diagnosis Date Abnormal ECG Arrhythmia Atrial fibrillation (CMS/HCC) Chronic kidney disease Coronary artery disease Diabetes mellitus (CMS/HCC) (more content not included)...[facility]07-26-2023 NotePatient here for 1.5 year follow up and device check. Lightheaded in the office today, as BP is very low. He denies chest pain, SOB, palpitations, and bleeding on warfarin. Had routine labs last week. Review of Systems Musculoskeletal: Positive for arthritis, joint pain and myalgias. Neurological: Positive for light-headedness. All other systems reviewed and are negative.[facility] 08-06-2022 Evaluation note* Encounter Date Diagnosis Assessment [...] are maintaining regular scheduled appts with their driver license reviewing officer. No bleeding complications Jul, Type 1 diabetes [...] risk for cerebrovascular and cardiovascular disease. 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 (ICD-10 - Z79.4) Jul, Kidney transplant status (ICD-10 - Z94.0) Monthly labs, ongoing surveillance from transplant clinic [facility] Other 05-15-2023 Progress note Author Sadia Aguilar [facility] June 29, 2022 2:47pm Note Date/Time June 29, 2022 2:46p m [facility] [address] [place] [address] Wound Center Provider Note Signed Patient: Alex Almonte MR#: [id number] : 1945 Acct:[id number] Age/Sex: 76 / M Copies to: DO Sadia Whyte APRN~ HPI Date of Visit Date of Visit: Date of Service: 06/29/2022 Time of Service: 14:45 Narrative HPI: 12/30/21 Alex is a 76 year old male presenting to [facility] wound care for aninitial visit for eval and treatment of a sacral/coccyx area pressure ulcer. He resides at [facility]. There is an WIRED MUSIC OPERATOR present for the visit. Medicalhoney gel will [...] his brief that was cleaned by this designer writer as well as another nursing staff [...] from initial visit here Mode of Arrival/ Sample Sawyer: Facility vehicle Assistive Device Used Today: Wheelchair and Indra Lives with:: Care/Nursing Facility Appetite Description: Within Normal Limits Who helps w/ dressing change?: Nursing Facility Why Do You Need Help?: Can't Reach Ulcer, Limited mobility and Taxing effort to leave home Smoking Status: Former smoker [facility] Medical History (Updated 03/03/22 @ 14:41 by [...] Ulcer/Injury Staging: Unstageable Bed Appearance: Beefy Red, [place], Yellow and Rolled Edges Percent of Wound [...] <Electronically signed by DAVID Aguilar> 06/29/22 [address] [facility] Work Phone: 1(293) 776-556305-11-2023 Evaluation note* Encounter Date Diagnosis Assessment Notes [...] are maintaining regular scheduled appts with their driver license reviewing officer. No bleeding complications June, Hyperlipidemia LDL goal <100 (ICD-10 - E78.5) Instructed on diet and exercise with continued statin therapy.Discussed the beneficial effects of lowering cholesterol in reducing the risk for cerebrovascular and cardiovascular disease. June, USP (current) use of insulin (ICD-10 - Z79.4) June, Kidney transplant status (ICD-10 - Z94.0) No s/s rejection [facility] Other 04-24-2023 Progress note Author Sadia Aguilar [facility] June 08, 2022 2:10pm Note Date/Time June 08, 2022 2:1 0pm [facility] [address] [place] [address] Wound Center Provider Note Signed Patient: Alex Almonte MR#: [id number] : 1945 Acct:[id number] Age/Sex: 76 / M Copies to: DO Sadia Whyte, SUPERINTENDENT TRANSPORTATION~ HPI Date of Visit Date of Visit: Date of Service: 06/08/2022 Time of Service: 14:07 Narrative HPI: 12/30/21 Alex is a 76 year old male presenting to [facility] wound care for aninitial visit for eval and treatment of a sacral/coccyx area pressure ulcer. He resides at [facility]. There is an WIRED MUSIC OPERATOR present for the visit. Medicalhoney gel will [...] his brief that was cleaned by this designer writer as well as another nursing staff [...] from initial visit here Mode of Arrival/ Sample Sawyer: Facility vehicle Assistive Device Used Today: Wheelchair and Indra Lives with:: Care/Nursing Facility Appetite Description: Within Normal Limits Who helps w/ dressing change?: Nursing Facility Why Do You Need Help?: Can't Reach Ulcer, Limited mobility and Taxing effort to leave home Smoking Status: Former smoker [facility] Medical History (Updated 03/03/22 @ 14:41 by [...] Ulcer/Injury Staging: Unstageable Bed Appearance: Beefy Red, [place], Yellow and Rolled Edges Percent of Wound [...] APRN DD/ Signed By: <Electronically signed by ADVID Aguilar> 06/08/22 [address] [facility] Work Phone: 1(599) 283-169104-21-2023 Evaluation note* Encounter Date Diagnosis Assessment Notes [...] are maintaining regular scheduled appts with their driver license reviewing officer. May, USP (current) use of insulin (ICD-10 - Z79.4) May, Kidney transplant status (ICD-10 - Z94.0) routine labs per clinic. 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 No open ulcerations present Pain controlled [facility] Other 03-27-2023 Progress note Author Sadia Aguilar [facility] May 11, 2022 1:41pm Note Date/Time May 11, 2022 1:4 0pm [facility] [address] [place] [address] Wound Center Provider Note Signed Patient: Alex Almonte MR#: [id number] : 1945 Acct:[id number] Age/Sex: 76 / M Copies to: DO Sadia Whyte, SUPERINTENDENT TRANSPORTATION~ HPI Date of Visit Date of Visit: Date of Service: 05/11/2022 Time of Service: 13:38 Narrative HPI: 12/30/21 Alex is a 76 year old male presenting to [facility] wound care for aninitial visit for eval and treatment of a sacral/coccyx area pressure ulcer. He resides at [facility]. There is an WIRED MUSIC OPERATOR present for the visit. Medicalhoney gel will [...] his brief that was cleaned by this designer writer as well as another nursing staff [...] from initial visit here Mode of Arrival/ Sample Sawyer: Facility vehicle Assistive Device Used Today: Wheelchair and Indra Lives with:: Care/Nursing Facility Appetite Description: Within Normal Limits Who helps w/ dressing change?: Nursing Facility Why Do You Need Help?: Can't Reach Ulcer, Limited mobility and Taxing effort to leave home Smoking Status: Former smoker [facility] Medical History (Updated 03/03/22 @ 14:41 by [...] Ulcer/Injury Staging: Unstageable Bed Appearance: Beefy Red, [place] and Yellow Percent of Wound Bed Granulated/Red: [...] <Electronically signed by DAVID Aguilar> 05/11/22 [address] [facility] Work Phone: 1(845) 679-913803-23-2023 Evaluation note* Encounter Date Diagnosis Assessment Notes [...] are maintaining regular scheduled appts with their driver license reviewing officer. 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 Author Type: Physician Type: Progress Notes Filed: 04/24/2022 10:32 AM Note Text: Encounter opened in error, patient not seen.[facility]02-28-2023 Progress note Author Sadia Aguilar [facility] April 14, 2022 2:19pm Note Date/Time April 14, 2022 2:18pm [facility] [address] [place] [address] Wound Center Provider Note Signed Patient: Alex Almonte MR#: [id number] : 1945 Acct:[id number] Age/Sex: 76 / M Copies to: DO Sadia Whyte APRN~ HPI Date of Visit Date of Visit: Date of Service: 04/14/2022 Time of Service: 14:18 Narrative HPI: 12/30/21 Alex is a 76 year old male presenting to [facility] wound care for aninitial visit for eval and treatment of a sacral/coccyx area pressure ulcer. He resides at [facility]. There is an WIRED MUSIC OPERATOR present for the visit. Medicalhoney gel will [...] his brief that was cleaned by this designer writer as well as another nursing staff [...] from initial visit here Mode of Arrival/ Sample Sawyer: Facility vehicle Assistive Device Used Today: Wheelchair and Indra Lives with:: Care/Nursing Facility Appetite Description: Within Normal Limits Who helps w/ dressing change?: Nursing Facility Why Do You Need Help?: Can't Reach Ulcer, Limited mobility and Taxing effort to leave home Smoking Status: Former smoker [facility] Medical History (Updated 03/03/22 @ 14:41 by [...] Ulcer/Injury Staging: Unstageable Bed Appearance: Beefy Red, Jourd[place] and Yellow Percent of Wound Bed Granulated/Red: [...] <Electronically signed by DAVID Aguilar> 04/14/22 1419 [facility] Work Phone: 1(504) 510-518102-16-2023 NotePatient Outreach (KIMBERLY) ALEX ALMONTE ([id number]) 1945 M TRN Date Time Provider Department 04/02/22 VAN OLIVAREZ During your visit today, we recorded the following information about you: Allergies As of Date: 04/02/2022 Noted Allergy Reaction PYRIDOSTIGMINE BROMIDE 08/04/2021 8 - GI Upset Date Reviewed: 02/26/2022 Reviewed by: Braden Abel MA - Fully Assessed Visit Diagnosis:Screening for genitourinary condition [Z13.89] Order(s):URINALYSIS, REFLEX MICROSCOPIC [CKD0937] Order #: [id number] Prescriptions as of 04/06/2022 - tacrolimus IR [...] by mouth daily with lunch. 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 DIABETES UNCOMPL ADULT-UNCONTRLLED [[id number]] 02/24/2002 KIDNEY TRANSPLANT STATUS [Z94.0] 09/07/2003 PROPHYLACTIC IMMUNOTHERAPY [Z29.8] 07/30/2006 PRISON STEROIDS [ARI2764] 07/30/2006 VITAMIN D DEFICIENCY NOS [E55.9] 09/07/2008 [...] diabetes mellitus with diabetic peripher*11/29/2021 Atherosclerosis of lummi artery of extremity w*11/29/2021 Malnutrition of moderate degree (HCC) [E44.0] 12/01/2021 Dermatitis associated with moisture [L30.8] 12/04/2021 Encounter Status:Closed by CONCETTA HOBBS on 04/06/22[facility] 03-30-2022 Miscellaneous Notes* Telephone Encounter - [...] to pharmacy. Katina Duque documented in this encounterWilson Health02-07-2023 Progress note Author Sadia Aguilar [facility] March 24, 2022 3:00pm Note Date/Time March 24, 2022 2 :59pm [facility] [address] [place] [address] Wound Center Provider Note Signed Patient: Alex Almonte MR#: [id number] : 1945 Acct:[id number] Age/Sex: 76 / M Copies to: DO Sadia Whyte APRN~ HPI Date of Visit Date of Visit: Date of Service: 03/24/2022 Time of Service: 14:58 Narrative HPI: 12/30/21 Alex is a 76 year old male presenting to [facility] wound care for aninitial visit for eval and treatment of a sacral/coccyx area pressure ulcer. He resides at [facility]. There is an WIRED MUSIC OPERATOR present for the visit. Medicalhoney gel will [...] his brief that was cleaned by this designer writer as well as another nursing staff [...] from initial visit here Mode of Arrival/ Sample Sawyer: Facility vehicle Assistive Device Used Today: Wheelchair and Indra Lives with:: Care/Nursing Facility Appetite Description: Within Normal Limits Who helps w/ dressing change?: Nursing Facility Why Do You Need Help?: Can't Reach Ulcer, Limited mobility and Taxing effort to leave home Smoking Status: Former smoker [facility] Medical History (Updated 03/03/22 @ 14:41 by Sadia Aguliar APRN) Below-knee amputation of right lower extremity [...] Ulcer/Injury Staging: Unstageable Bed Appearance: Beefy Red, [place] and Yellow Percent of Wound Bed Granulated/Red: [...] <Electronically signed by DAVID Aguilar> 03/24/22 [address] [facility] Work Phone: 1(824) 260-639201-17-2023 Progress note Author Sadia Aguilar [facility] March 03, 2022 2:41pm Note Date/Time March 03, 2022 2 :41pm [facility] [address] [place] [address] Wound Center Provider Note Signed Patient: Alex Almonte MR#: [id number] : 1945 Acct:[id number] Age/Sex: 76 / M Copies to: Devon Moreira,DO Sadia Aguilar APRN~ HPI Date of Visit Date of Visit: Date of Service: 03/03/2022 Time of Service: 14:38 Narrative HPI: 12/30/21 Alex is a 76 year old male presenting to [facility] wound care for aninitial visit for eval and treatment of a sacral/coccyx area pressure ulcer. He resides at [facility]. There is an WIRED MUSIC OPERATOR present for the visit. Medicalhoney gel will [...] his brief that was cleaned by this designer writer as well as another nursing staff [...] from initial visit here Mode of Arrival/ Sample Sawyer: Facility vehicle Assistive Device Used Today: Wheelchair and Indra Lives with:: Care/Nursing Facility Appetite Description: Within Normal Limits Who helps w/ dressing change?: Nursing Facility Why Do You Need Help?: Can't Reach Ulcer, Limited mobility and Taxing effort to leave home Smoking Status: Former smoker [facility] Medical History (Updated 03/03/22 @ 14:41 by [...] Ulcer Pressure Ulcer/Injury Staging: Unstageable Bed Appearance: [place] and Yellow Percent of Wound Bed Granulated/Red: 90 Percent of Devitalized: 10 Length (cm): 2.2 Width (cm): 1.8 Depth (cm): 1.9 CM Sq: 3.960 Surrounding Tissue Appearance: [place], Hyperpigmented and Satellite lesions Surrounding Tissue Temp: [...] <Electronically signed by DAVID Aguilar> 03/03/22 1441 [facility] Work Phone: 1(145) 583-799401-13-2023 Miscellaneous Notes* Telephone Encounter - RAUL Davidson - 02/27/2022 10:24 AM EST Patient phones requesting refills as follows: Per pts sister takes 1 mg in AM and 1 mg in PM Requested Prescriptions Pending Prescriptions Disp Refills tacrolimus IR (PROGRAF) 1 mg capsule Sig: Take 2 capsules by mouth DAILY (6 AM). Please review and advise. RAUL Davidson documented in this encounterWilson Health01-12-2023 NoteHNO ID: [id number] Author: Hina Peterson MD Service: ? Author Type: Physician Type: Progress Notes Filed: 02/26/2022 4:31 PM Note Text: [facility] [place] DEPARTMENT OF VASCULAR SURGERY OUTPATIENT VISIT DATE [...] his postop visit. He has been in [facility] since then and has been recovering from his acute on chronic congestive heart failure. His wound has largely been healing without any issues and the maxwell and sutures were removed at the nursing facility. He comes here with a lateral wound eschar. He denies any fevers, chills, or any drainage. He is on anticoagulation. 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 Patient on mycophenolate mofetil , cellcept and prednisone Mixed hyperlipidemia due to type 2 diabetes mellitus ([facility]) 11/29/2021 Osteomyelitis ([facility]) 11/29/2021 Paroxysmal atrial fibrillation ([facility]) Renal transplant, status post SA node dysfunction ([facility]) s/p pacemaker Type 2 diabetes mellitus with diabetic neuropathy, with long-term current use of insulin ([facility]) 02/24/2002 PAST SURGICAL HISTORY Procedure Laterality Date [...] by mouth daily with lunch. [place] with lunch aspirin, enteric coated (ASPIRIN, ENTERIC COATED) 81 mg EC tablet Take 1 tablet by mouth once daily. predniSONE (DELTASONE) 5 mg tablet TAKE 1 TABLET BY MOUTH EVERY DAY oxyCODONE IR (ROXICODONE) 5 mg immediate release tablet 1-2 tablets by ORAL/FEEDING TUBE route every 3 hours as needed. Food Supplement, Lactose-Free (ENSURE MAX (more content not included)... [facility]01-12-2023 History of Present illness Narrative* Hina Peterson MD - 02/26/2022 4:25 PM EST Images from the original note were not included. [facility] [place] DEPARTMENT OF VASCULAR SURGERY OUTPATIENT VISIT DATE [...] his postop visit. He has been in [facility] since then and has been recovering from his acute on chronic congestive heart failure. His wound has largely been healing without any issues and the maxwell and sutures were removed at the [facility] facility. He comes here with a lateral wound eschar. He denies any fevers, chills, or any drainage. He is on anticoagulation. 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 [place] with lunch aspirin, enteric coated (ASPIRIN, ENTERIC [...] 2022 TIME: 4:26 PM documented in this encounterWilson Health01-05-2023 Miscellaneous Notes* Telephone Encounter - Gwen Beard [...] Home and cell number(Ask for Alex's nurse) [phone] Diagnosis 4 mo f/u wound check Yumiko Mcclain documented in this encounterWilson Health01-05-2023 Miscellaneous Notes* Telephone Encounter - Augusta Medrano [...] level. Augusta Medrano RN documented in this encounterWilson Health01-04-2023 Miscellaneous Notes* Telephone Encounter - Martina Rossi [...] advise. Mercedez Tavares MA documented in this encounterWilson Health12-27-2022 Progress note Author Sadia Aguilar [facility] February 10, 2022 3:47pm Note Date/Time February 10, 2022 3:47pm [facility] [address] [place] [address] Wound Center Provider Note Signed Patient: Alex Almonte MR#: [id number] : 1945 Acct:[id number] Age/Sex: 76 / M Copies to: DO Sadia Whyte APRN~ HPI Date of Visit Date of Visit: Date of Service: 02/10/2022 Time of Service: 15:44 Narrative HPI: 12/30/21 Alex is a 76 year old male presenting to [facility] wound care for aninitial visit for eval and treatment of a sacral/coccyx area pressure ulcer. He resides at [facility]. There is an WIRED MUSIC OPERATOR present for the visit. Medicalhoney gel will [...] his brief that was cleaned by this designer writer as well as another nursing staff member, few weeks to follow up Subjective Pain Coccyx: Pain Description: Intermittent Pain Intensity: 0 Wound/Ulcer History When did wound start?: 4 weeks ago- from initial visit here Mode of Arrival/ Sample Sawyer: Facility vehicle Assistive Device Used Today: Wheelchair and Indra Lives with:: Care/Nursing Facility Appetite Description: Within Normal Limits Who helps w/ dressing change?: Nursing Facility Why Do You Need Help?: Can't Reach Ulcer, Limited mobility and Taxing effort to leave home Smoking Status: Former smoker [facility] Medical History (Updated 01/20/22 @ 14:21 by [...] Ulcer Pressure Ulcer/Injury Staging: Unstageable Bed Appearance: [place] and Yellow Percent of Wound Bed Granulated/Red: 90 Percent of Devitalized: 10 Length (cm): 2.5 Width (cm): 2.3 Depth (cm): 2.1 CM Sq: 5.750 Surrounding Tissue Appearance: [place], Hyperpigmented and Satellite lesions Surrounding Tissue Temp: [...] <Electronically signed by DAVID Aguilar> 02/10/22 15[address] [facility] Work Phone: 1(510) 296-144712-22-2022 NoteHNO ID: [id number] Author: Asia Pike MD Service: ? Author Type: Physician Type: Progress Notes Filed: 02/05/2022 9:38 AM Note Text: [facility] Transplant Follow up Portions of this note [...] and snacks patient declined. Indra scale at [facility]: 166.2 lbs per patient. Bed sore on coccyx causing discomfort. Being changed regularly at SNF- reported to be smaller around but still as deep. Patient not very up to date with medications. Patient brought paperwork from [facility] with all medications being received. Patient unsure if they have been drawing labs regularly. Last Tac from 01/19: 12.9 and K 5.9. In need of current labs. Lab orders will be sent with patient and follows as below: [facility] Trans[facility] Standing Lab Orders [address] [facility] [address] [place], [place] [address] February 05, 2022 Alex Almonte 1945 [id number] STANDARD TESTING: Diagnosis Codes: Z94.0 Kidney Transplant [...] AT YOUR LABORATORY FACILITY AND FAX TO [phone]. PLEASE CALL [phone]. Provider: Dr. Pike Current Outpatient Medications Medication [...] by mouth daily with lunch. [place] with lunch aspirin, enteric coated (ASPIRIN, ENTERIC COATED) 81 mg EC tablet Take 1 tablet by mouth once daily. atorvastatin (LIPITOR) 40 mg tablet 1 tablet by ORAL/FEEDING TUBE route daily at bedtime. (more content not included)...[facility]12-22-2022 History of Present illness Narrative* Asia Pike MD - 02/05/2022 8:20 AM EST Images from the original note were not included. [facility] [place] Transplant Follow up Portions of this note [...] and snacks patient declined. Indra scale at [facility]: 166.2 lbs per patient. Bed sore on coccyx causing discomfort. Being changed regularly at [facility]- reported to be smaller around but still as deep. Patient not very up to date with medications. Patient brought paperwork from [facility] with all medications being received. Patient unsure if they have been drawing labs regularly. Last Tac from 01/19: 12.9 and K 5.9. In need of current labs. Lab orders will be sent with patient and follows as below: Kidney and Pancreas Transplant Standing Lab Orders [address] [place], [place] [address] February 05, 2022 Alex Almonte 1945 [id number] STANDARD TESTING: Diagnosis Codes: Z94.0 Kidney Transplant [...] AT YOUR LABORATORY FACILITY AND FAX TO [phone]. PLEASE CALL [phone]. Provider: Dr. Pike Current Outpatient Medications Medication [...] by mouth daily with lunch. Magic [place] with lunch aspirin, enteric coated (ASPIRIN, ENTERIC [...] complexity. Asia Pike MD documented in this encounterWilson Health12-06-2022 Progress note Author Sadia Aguilar [facility] January 20, 2022 2:21pm Note Date/Time January 20, 2022 2 :21pm [facility] [address] [place] [address] Wound Center Provider Note Signed Patient: Alex Almonte MR#: [id number] : 1945 Acct:[id number] Age/Sex: 76 / M Copies to: DO Sadia Whyte APRN~ HPI Date of Visit Date of Visit: Date of Service: 01/20/2022 Time of Service: 14:17 Narrative HPI: 12/30/21 Alex is a 76 year old male presenting to [facility] wound care for aninitial visit for eval and treatment of a sacral/coccyx area pressure ulcer. He resides at [facility]. There is an WIRED MUSIC OPERATOR present for the visit. Medicalhoney gel will [...] from initial visit here Mode of Arrival/ Sample Sawyer: Facility vehicle Assistive Device Used Today: Wheelchair and Indra Lives with:: Care/Nursing Facility Appetite Description: Within Normal Limits Who helps w/ dressing change?: Nursing Facility Why Do You Need Help?: Can't Reach Ulcer, Limited mobility and Taxing effort to leave home Smoking Status: Former smoker [facility] Medical History (Updated 01/20/22 @ 14:21 by [...] Ulcer Pressure Ulcer/Injury Staging: Unstageable Bed Appearance: [place] and Yellow Percent of Wound Bed Granulated/Red: 40 Percent of Devitalized: 60 Length (cm): 5.2 Width (cm): 3.4 Depth (cm): 1.8 CM Sq: 17.680 Surrounding Tissue Appearance: [place] and Hyperpigmented Surrounding Tissue Temp: Warm Drainage [...] by DAVID Aguilar> 01/20/22 1421 [facility] Work Phone: 1(130) 970-141512-06-2022 Miscellaneous Notes* Telephone Encounter - Van Olivarez APRN.CNP - 01/20/2022 1:12 PM EST Labs noted from yesterday. Pt is currently residing at [facility], I spoke with the Nurse, the results has been addressed by Physician caring for pt. He had been placed on Chlor Con and this has been discontinued and hyperkalemia has been treated. Van Olivarez APRN.CNP documented in this encounterWilson Health11-28-2022 Surgical operation note* Brief Op Note - Misbah Landis PA-C - 01/12/2022 10:41 AM EST BRIEF OPERATIVE / PROCEDURE NOTE LOG ID: [id number] SURGERY/PROCEDURE DATE: 01/12/2022 INCISION/PROCEDURE START TIME: 10:32 AM INCISION CLOSE/PROCEDURE END TIME: 10:35 AM SURGEON(S)/PROCEDURALIST(S) AND ER REGISTRAR(S): Misbah Landis PA-C SURGERY/PROCEDURE(S): Removal tunneled vascular access catheter under local anesthesia ANESTHESIA: Procedural Sedation FINDINGS: Catheter removed intact ESTIMATED BLOOD LOSS: 0 ml SPECIMENS: None COMPLICATIONS: None PRE-OP/PRE-PROCEDURE DIAGNOSIS: Foot Ulcer POST-OP/POST-PROCEDURE DIAGNOSIS: Same as Preop SIGNATURE: Misbah Landis PA-C PATIENT NAME: Alex Almonte DATE: January 12, 2022 TIME: 10:42 AM documented in this encounterWilson Health11-22-2022 Nurse Note* Laxmi Archibald RN - 01/06/2022 1:55 PM EST Pre-procedure instructions: Contacted patient's sister, Munira Brothers and nurse at [facility] ([phone]) andconfirmed appt. for Gerhard removal scheduled on 01/12/22, at [facility]. If instructions are not [...] signed. Arrival at 9:30am to desk B-1 ([facility]) and check in for your procedure. Ekg Monitor Tech/Transportation: How will you be arriving for your procedure? Ambulance service. To be arranged by [facility]. If you develop any of the following symptoms before your procedure, please call [phone]. Chills, joint pain, rash, sore throat, cough, loss of smell, reddened eyes, vomiting, abdominal pains, diarrhea, loss of taste, severe headache, weakness, bruising or bleeding, fever, muscle pain, shortness of breath Recovery expectations: You can expect to be in recovery for 30 minutes following the procedure. Written instructions provided to patient via [employer] If you have any questions please call [phone] documented in this encounterWilson Health11-15-2022 Progress note Author Sadia Aguilar [facility] December 30, 2021 1:49pm Note Date/Time December 30, 2021 1:49pm [facility] [address] [place] [address] Wound Center Provider Note Signed Patient: Alex Almonte MR#: [id number] : 1945 Acct:[id number] Age/Sex: 76 / M Copies to: DO Sadia Whyte APRN~ HPI Date of Visit Date of Visit: Date of Service: 12/30/2021 Time of Service: 13:44 Narrative HPI: 12/30/21 Alex is a 76 year old male presenting to [facility] wound care for aninitial visit for eval and treatment of a sacral/coccyx area pressure ulcer. He resides at [facility]. There is an WIRED MUSIC OPERATOR present for the visit. Medicalhoney gel will [...] start?: 4 weeks ago Mode of Arrival/ Sample Sawyer: Facility vehicle Assistive Device Used Today: Wheelchair and Indra Lives with:: Care/Nursing Facility Appetite Description: Within Normal Limits Who helps w/ dressing change?: Nursing Facility Why Do You Need Help?: Can't Reach Ulcer, Limited mobility and Taxing effort to leave home Smoking Status: Former smoker [facility] Medical History (Updated 12/30/21 @ 13:49 by [...] 0.1 CM Sq: 38.500 Surrounding Tissue Appearance: [place] and Hyperpigmented Surrounding Tissue Temp: Warm Drainage [...] <Electronically signed by DAVID Aguilar> 12/30/21 134[address] [facility] Work Phone: 1(476) 453-594811-15-2022 History of Present illness Narrative* Paresh Fonseca [...] the rehab facility He is currently at [facility] in [facility] Seen on video together with Zoe -history obtained from bedside nursing. he is getting up in a chair, working with PT diet is back to regular hes doing well. 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 has scabs on the R lateral side but no wound care concerns. It continues to heal. He has a follow-up with vascular surgery later December 2021. has a sacral wound -- he has local wound care following this at [facility] WBC 6.0, creatinine -- 0.8. alt [...] by mouth daily with lunch. [place] with lunch aspirin, enteric coated (ASPIRIN, ENTERIC [...] is a 76 year old male from [facility]. Here today for copat follow-up for vancomycin x4 weeks for MRSA bacteremia He was transferred from [facility] TO [facility] on 11/28/2021 for further surgical management [...] 3. Status post right heel I&D at [facility] on 11/24/2021. 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 4. CKD - s/p gerhard placement 5. immunocompromised Status post right open above the ankle [id number] - Enterobacter and MRSA from cultures Gram-positive [...] will need to coordinate with his SNF [phone] --our ID office will need to arrange for IR gerhard removal. Return to ID as needed 10 Minutes spent via virtual visit. SIGNATURE: Paresh Fonseca MD PATIENT NAME: Alex Almonte DATE: December 30, 2021 TIME: 9:52 AM documented in this encounterWilson Health11-01-2022 Miscellaneous Notes* Telephone Encounter - Sulma Pardo - 12/16/2021 3:13 PM EDT Pt physical therapy instructor is requesting orders for Stomp ampushield to be taken off pressure relief because it is causing sores on the thigh. Thanks, Sulma Pardo Change Analyst documented in this encounterWilson Health10-31-2022 Miscellaneous Notes* Telephone Encounter - Gwen Alfredo Adm Asst I - 12/15/2021 4:11 PM EDT Rupa LYLES from [facility] [phone] called to report IV Vancomycin was started until today. Patient missed 3 days, should patient makeup missed doses? Please advise. Gwen Alfredo Adm Asst I documented in this encounterWilson Health10-21-2022 Instructions* Patient Instructions* Paresh Fonseca MD - [...] serious illness Are taking any medications (prescription, zacm-apk-myvwmjh, vitamins, or herbal products) How will I [...] treatment or prevention of COVID-19 go to https://www.fda.gov/ijzwoocpn-rmcafqecujse-cxt- response/lmu-jaioh-oiocirgmcd-uiz-iirrka-amfsyiizt/hleedqwie-zbu-lhncrevcjwpau for more information. It is your choice [...] not go away. Report side effects to [employer] at www.fda.gov/medFlickIMtch or call 0-304-PJJ-1088 or call [employer] . Additional Information If you have questions, visit the website or call the telephone number provided below. Website Telephone number http://www.[employer] How can I learn more about COVID-19? Ask your healthcare provider. Visit https://www.cdc.gov/COVID19 Contact your local or state public health department. What is an Emergency Use Authorization? The [place] FDA has made EVUSHELD (tixagevimab co-packaged with cilgavimab) available under an emergency access mechanism called an Emergency Use Authorization EUA. The EUA is supported by a Snuff Packing Machine Operator of Health and Human Service (HHS) declaration [...] monohydrate, polysorbate 80, sucrose, water. Distributed by: [employer] [place] Manufactured for: [employer] [place] [employer] 2021. All rightsreserved. documented in this encounterWilson Health10-21-2022 Miscellaneous Notes* Telephone Encounter - Paresh Fonseca MD - 12/05/2021 3:05 PM EDT Evusheld (tixagevimab/cilgavimab) Eligibility and Patient Discussion The patient agrees to receive Evusheld (tixagevimab 300 mg and cilgavimab 300 mg) at [facility]. The patient verbalized understanding of repeating a COVID test 72 hours prior to the injections. called up patient in response to her [employer]ion[employer] message today she tested covid negative on a rapid test on Wednesday this week Discussed evushed fact sheet and she agrees to proceed she will retest again today to be scheduled for Friday 12/08 at [facility] Paresh Fonseca MD documented in this encounterWilson Health10-03-2022 Instructions* Patient Instructions* No Reeder DO - 11/17/2021 4:26 PM EDT -- continue coumadin -- will get vascular ultrasound for vein and artery of your right leg -- will have you see my interventional cardiology partner regarding your peripheral artery disease and if your artery disease is impairing your wound healing for the leg ulcer documented in this encounterWilson Health10-03-2022 History of Present illness Narrative* No Reeder DO - 11/17/2021 3:53 PM EDT Images from the original note were not included. [facility] [place] [facility] Department of Cardiovascular Medicine SECTION [...] DVT scan. Leg elevation. No Reeder DO, [facility] V[facility] Medicine documented in this encounterWilson Health08-16-2022 History of Past illness Narrative* Problem Noted Date Resolved Date Altered tissue perfusion documented as of this encounter (statuses as of 09/30/2021) [address]16-2022 History of Past illness Narrative* Problem Noted Date Resolved Date Altered tissue perfusion documented as of this encounter (statuses as of 10/09/2021) [address]16-2022 History of Past illness Narrative* Problem Noted Date Resolved Date Altered tissue perfusion documented as of this encounter (statuses as of 11/18/2021) [address]16-2022 History of Past illness Narrative* Problem Noted Date Resolved Date Altered tissue perfusion documented as of this encounter (statuses as of 12/01/2021) [address]16-2022 History of Past illness Narrative* Problem Noted Date Resolved Date Altered tissue perfusion documented as of this encounter (statuses as of 12/05/2021) [address]16-2022 History of Past illness Narrative* Problem Noted Date Resolved Date Altered tissue perfusion documented as of this encounter (statuses as of 12/08/2021) [address]16-2022 History of Past illness Narrative* Problem Noted Date Resolved Date Altered tissue perfusion 08/16/2 022 documented as of this encounter (statuses as of 12/08/2021) [address]16-2022 History of Past illness Narrative* Problem Noted Date Resolved Date Altered tissue perfusion 2 022 documented as of this encounter (statuses as of 12/12/2021) [address]16-2022 History of Past illness Narrative* Problem Noted Date Resolved Date Altered tissue perfusion 2 022 documented as of this encounter (statuses as of 12/15/2021) [address]16-2022 History of Past illness Narrative* Problem Noted Date Resolved Date Altered tissue perfusion 2 022 documented as of this encounter (statuses as of 12/16/2021) [address]16-2022 History of Past illness Narrative* Problem Noted Date Resolved Date Altered tissue perfusion 2 022 documented as of this encounter (statuses as of 12/31/2021) [address]16-2022 History of Past illness Narrative* Problem Noted Date Resolved Date Altered tissue perfusion 2 022 documented as of this encounter (statuses as of 01/13/2022) [address]16-2022 History of Past illness Narrative* Problem Noted Date Resolved Date Altered tissue perfusion 09/30/2 022 documented as of this encounter (statuses as of 01/20/2022) [address]16-2022 History of Past illness Narrative* Problem Noted Date Resolved Date Altered tissue perfusion 2 022 documented as of this encounter (statuses as of 02/06/2022) [address]16-2022 History of Past illness Narrative* Problem Noted Date Resolved Date Altered tissue perfusion 16/2 022 documented as of this encounter (statuses as of 02/20/2022) [address]16-2022 History of Past illness Narrative* Problem Noted Date Resolved Date Altered tissue perfusion 16/2 022 documented as of this encounter (statuses as of 02/26/2022) [address]16-2022 History of Past illness Narrative* Problem Noted Date Resolved Date Altered tissue perfusion 16/2 022 documented as of this encounter (statuses as of 02/27/2022) [address]16-2022 History of Past illness Narrative* Problem Noted Date Resolved Date Altered tissue perfusion documented as of this encounter (statuses as of 03/21/2022) [address]16-2022 History of Past illness Narrative* Problem Noted Date Resolved Date Altered tissue perfusion documented as of this encounter (statuses as of 03/30/2022) [address]16-2022 History of Past illness Narrative* Problem Noted Date Resolved Date Altered tissue perfusion documented as of this encounter (statuses as of 04/06/2022) [address]16-2022 History of Past illness Narrative* Problem Noted Date Resolved Date Altered tissue perfusion documented as of this encounter (statuses as of 05/13/2022) [address]16-2022 History of Past illness Narrative* Problem Noted Date Diagnosed Date Resolved Date Altered tissue perfusion documented as of this encounter (statuses as of 2022) [address]16-2022 History of Past illness Narrative* Problem Noted Date Diagnosed Date Resolved Date Altered tissue perfusion documented as of this encounter (statuses as of 10/29/2022) [facility]16[facility] Miscellaneous Notes* Telephone Encounter - Katina Duque [...] to pharmacy. Katina Duque documented in this encounterWilson Health05-31-2022 Miscellaneous Notes* Telephone Encounter - Van Olivarez [...] advise. Rosibel Link Adm documented in this encounterWilson Health04-21-2022 Miscellaneous Notes* Telephone Encounter - Van Olivarez APRN.CNP - 06/05/2021 4:46 PM EDT Spoke with pt regarding latest results, scr. at baseline. TAC level 8.6 prev two levels in 5 range.He believes latest level would be 12hr trough. No changes for now, if next level >7, can consider if reduction appropriate. He understands. Van Olivarez APRN.CNP [facility] Diagnosis Screening for genitourinary condition Screening for other and unspecified genitourinary condition documented in this encounter [facility] note* Diagnosis Acute deep vein thrombosis (DVT) of proximal end of right lower extremity (HCC)- Primary PAD (peripheral artery disease) ([facility]) Peripheral vascular disease, unspecified Nonhealing ulcer of heel ([facility]) Anticoagulation management encounter Encounter for therapeutic drug monitoring [facility] Diagnosis Encounter for prophylactic measures, unspecified- Primary documented in this encounter [facility] note* Diagnosis Kidney replaced by transplant- Primary documented in this encounter [facility] note* Diagnosis MRSA bacteremia- Primary Bacteremia Diabetic foot ulcer with osteomyelitis ([facility]) Type II or unspecified type diabetes mellitus with other specified manifestations, not stated as uncontrolled ILIANA (acute kidney injury) ([facility]) Acute kidney failure, unspecified documented in this encounter [facility] note* Diagnosis Kidney replaced by transplant- Primary 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 documented in this encounter [facility] note* Diagnosis Hx of BKA, [...] (HCC) Atrial fibrillation documented in this encounter [facility] note* Diagnosis Screening for genitourinary condition Screening for other and unspecified genitourinary condition documented in this encounter [facility] note* Diagnosis Onset Date Resolution Status At high risk for skin breakdown chronic Diabetes chronic Fecal incontinence chronic Limited mobility chronic Poor appetite chronic Pressure ulcer of sacral region, unstageable chronic Candidiasis resolved [facility] Work Phone: Evaluation noteNo [facility] Other Evaluation note* Diagnosis Kidney replaced by transplant- Primary documented in this encounter [facility] note* Diagnosis Type 1 diabetes [...] COLONOSCOPY 1995,2001, 2014 Hospitalization History see above [employer] Other Progress note Author Sadia Aguilar [facility] July 20, 2022 1:48pm Note Date/Time July 20, 2022 1:48p m [facility] [address] [place] [address] Wound Center Provider Note Signed Patient: Alex Almonte MR#: [id number] : 1945 Acct:[id number] Age/Sex: 76 / M Copies to: Devon Moreira,DO Sadia Aguilra, SUPERINTENDENT TRANSPORTATION~ HPI Date of Visit Date of Visit: Date of Service: 07/20/2022 Time of Service: 13:46 Narrative HPI: 12/30/21 Alex is a 76 year old male presenting to [facility] wound care for aninitial visit for eval and treatment of a sacral/coccyx area pressure ulcer. He resides at [facility]. There is an WIRED MUSIC OPERATOR present for the visit. Medicalhoney gel will [...] his brief that was cleaned by this designer writer as well as another nursing staff [...] from initial visit here Mode of Arrival/ Sample Sawyer: Facility vehicle Assistive Device Used Today: Wheelchair and Indra Lives with:: Care/Nursing Facility Appetite Description: Within Normal Limits Who helps w/ dressing change?: Nursing Facility Why Do You Need Help?: Can't Reach Ulcer, Limited mobility and Taxing effort to leave home Smoking Status: Former smoker [facility] Medical History (Updated 03/03/22 @ 14:41 by [...] <Electronically signed by DAVID Aguilar> 07/20/22 [address] [facility] Work Phone: Reason for referral (narrative)* Outpatient Procedure (Routine) - Authorized Specialty Diagnoses / Procedures Referred By Contac t Referred To Contact [facility] Diagnoses PAD (peripheral artery disease) (HCC) Nonhealing ulcer of heel (HCC) Procedures US LEG ARTERIAL PERIPH UNL VAS LAB DUP-SCAN LXTR ART/ARTL BPGS UNI/LMTD STUDY No Reeder DO [address] [place] [address] [facility] [place] [address] Referral ID Status Reason Start Date Expiration Date Visits Requested Visits Authorized [id number] Authorized Auto-Generat ed Referral 11/17/2021 11/17/2022 1 1 * Outpatient Procedure (Routine) - Authorized Specialty Diagnoses / Procedures Referred By Contac t Referred To Contact [facility] Diagnoses Acute deep vein thrombosis (DVT) of proximal end of right lower extremity (HCC) Procedures US LEG VEIN DVT UNL VAS LAB DUP-SCAN XTR VEINS UNILATERAL/LIMITED STUDY No Reeder DO [address] [address] [facility] [place] [address] [place] [address] Referral ID Status Reason Start Date Expiration Date Visits Requested Visits Authorized [id number] Authorized Auto-Generat ed Referral 11/17/2021 11/17/2022 1 1 * Consult, Test, Treat (Routine) - Authorized Specialty Diagnoses / Procedures Referred By Contkendra t Referred To Contact Cardiology Diagnoses PAD (peripheral artery disease) (HCC) Nonhealing ulcer of heel (HCC) Procedures CONSULT TO CARDIOLOGY OFFICE/OUTPATIENT [facility] 60-74 MINUTES Savanah Marcelo MD [address] [place] [address] Referral ID Status Reason Start Date Expiration Date Visits Requested Visits Authorized [id number] Authorized PCP Requested Referral 11/17/2021 11/17/2022 1 1 [facility] Summary Purpose Family History No Family History Records Found Relationship Condition Age at Onset Recorded Date/T kartik father Aneurysm Unknown father Parkinson's disease Unknown Advance Directives No Advanced Directives Records FoundDocuments on File Type Date Recorded 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 Advance Directive(s) Latest Code Status [...] Maker Relationship: M ajority of Adult Siblings (retail sales representative) DNR-CCA 09/26/2021 11:56 AM 10/01/2021 [...] Decision Maker Relationship: Majority of Adult Siblings (retail sales representative) Code Status History Code Status [...] Reason for Visit Chief Complaint Open Wound ([facility]) Reason for Visit At high risk [...] AUTHOR AUTHOR'S ORGANIZ ATION 07/25/2022 [facility] DATE CREATED AUTHOR AUTHOR'S ORGANIZ ATION 08/16/2022 [facility] DATE CREATED AUTHOR AUTHOR'S ORGANIZ ATION 01/14/2023 [facility] DATE CREATED AUTHOR AUTHOR'S ORGANIZ ATION 03/20/2023 [facility] DATE CREATED AUTHOR AUTHOR'S ORGANIZ ATION 05/25/2023 [facility] Source Comments (unrecognize d section and content) In the event this informatio n is protected by the Federal Confidentiality of Alcohol and Drug Abuse Patient Records regulations: The Federal rules restrict any use of the information to criminally investigate or prosecute any alcohol or drug abuse patient.Wilson HealthIn the event this information is protected by the Federal Confidentiality of Alcohol and Drug Abuse Patient Records regulations: The Federal rules restrict any use of the information to criminally investigate or prosecute any alcohol or drug abuse patient.Wilson HealthIn the event this information is protected by the Federal Confidentiality of Alcohol and Drug Abuse Patient Records regulations: The Federal rules restrict any use of the information to criminally investigate or prosecute any alcohol or drug abuse patient.Wilson HealthIn the event this information is protected by the Federal Confidentiality of Alcohol and Drug Abuse Patient Records regulations: The Federal rules restrict any use of the information to criminally investigate or prosecute any alcohol or drug abuse patient.Wilson HealthIn the event this information is protected by the Federal Confidentiality of Alcohol and Drug Abuse Patient Records regulations: The Federal rules restrict any use of the information to criminally investigate or prosecute any alcohol or drug abuse patient.Wilson HealthIn the event this information is protected by the Federal Confidentiality of Alcohol and Drug Abuse Patient Records regulations: The Federal rules restrict any use of the information to criminally investigate or prosecute any alcohol or drug abuse patient.Wilson HealthIn the event this information is protected by the Federal Confidentiality of Alcohol and Drug Abuse Patient Records regulations: The Federal rules restrict any use of the information to criminally investigate or prosecute any alcohol or drug abuse patient.Wilson HealthIn the event this information is protected by the Federal Confidentiality of Alcohol and Drug Abuse Patient Records regulations: The Federal rules restrict any use of the information to criminally investigate or prosecute any alcohol or drug abuse patient.Wilson HealthIn the event this information is protected by the Federal Confidentiality of Alcohol and Drug Abuse Patient Records regulations: The Federal rules restrict any use of the information to criminally investigate or prosecute any alcohol or drug abuse patient.Wilson HealthIn the event this information is protected by the Federal Confidentiality of Alcohol and Drug Abuse Patient Records regulations: The Federal rules restrict any use of the information to criminally investigate or prosecute any alcohol or drug abuse patient.Wilson HealthIn the event this information is protected by the Federal Confidentiality of Alcohol and Drug Abuse Patient Records regulations: The Federal rules restrict any use of the information to criminally investigate or prosecute any alcohol or drug abuse patient.Wilson HealthIn the event this information is protected by the Federal Confidentiality of Alcohol and Drug Abuse Patient Records regulations: The Federal rules restrict any use of the information to criminally investigate or prosecute any alcohol or drug abuse patient.Wilson HealthIn the event this information is protected by the Federal Confidentiality of Alcohol and Drug Abuse Patient Records regulations: The Federal rules restrict any use of the information to criminally investigate or prosecute any alcohol or drug abuse patient.Wilson HealthIn the event this information is protected by the Federal Confidentiality of Alcohol and Drug Abuse Patient Records regulations: The Federal rules restrict any use of the information to criminally investigate or prosecute any alcohol or drug abuse patient.Wilson HealthIn the event this information is protected by the Federal Confidentiality of Alcohol and Drug Abuse Patient Records regulations: The Federal rules restrict any use of the information to criminally investigate or prosecute any alcohol or drug abuse patient.Wilson HealthIn the event this information is protected by the Federal Confidentiality of Alcohol and Drug Abuse Patient Records regulations: The Federal rules restrict any use of the information to criminally investigate or prosecute any alcohol or drug abuse patient.Wilson HealthIn the event this information is protected by the Federal Confidentiality of Alcohol and Drug Abuse Patient Records regulations: The Federal rules restrict any use of the information to criminally investigate or prosecute any alcohol or drug abuse patient.Wilson HealthIn the event this information is protected by the Federal Confidentiality of Alcohol and Drug Abuse Patient Records regulations: The Federal rules restrict any use of the information to criminally investigate or prosecute any alcohol or drug abuse patient.Wilson HealthIn the event this information is protected by the Federal Confidentiality of Alcohol and Drug Abuse Patient Records regulations: The Federal rules restrict any use of the information to criminally investigate or prosecute any alcohol or drug abuse patient.Wilson HealthIn the event this information is protected by the Federal Confidentiality of Alcohol and Drug Abuse Patient Records regulations: The Federal rules restrict any use of the information to criminally investigate or prosecute any alcohol or drug abuse patient.Wilson HealthIn the event this information is protected by the Federal Confidentiality of Alcohol and Drug Abuse Patient Records regulations: The Federal rules restrict any use of the information to criminally investigate or prosecute any alcohol or drug abuse patient.Wilson HealthIn the event this information is protected by the Federal Confidentiality of Alcohol and Drug Abuse Patient Records regulations: The Federal rules restrict any use of the information to criminally investigate or prosecute any alcohol or drug abuse patient.Wilson HealthIn the event this information is protected by the Federal Confidentiality of Alcohol and Drug Abuse Patient Records regulations: The Federal rules restrict any use of the information to criminally investigate or prosecute any alcohol or drug abuse patient.Wilson HealthIn the event this information is protected by the Federal Confidentiality of Alcohol and Drug Abuse Patient Records regulations: The Federal rules restrict any use of the information to criminally investigate or prosecute any alcohol or drug abuse patient.Wilson HealthIn the event this information is protected by the Federal Confidentiality of Alcohol and Drug Abuse Patient Records regulations: The Federal rules restrict any use of the information to criminally investigate or prosecute any alcohol or drug abuse patient.Wilson HealthIn the event this information is protected by the Federal Confidentiality of Alcohol and Drug Abuse Patient Records regulations: The Federal rules restrict any use of the information to criminally investigate or prosecute any alcohol or drug abuse patient.[facility] Reason for Visit (unrecogniz ed section and [...] Care Teams (unrecognized sec tion and content) Open Tenter Operator Relationship Specialty Start Date End Date LillieDevon, DO [address] [facility] [place] [address] PCP - General 05/27/00 Open Tenter Operator Relationship Specialty Start Date End Date Devon Moreira, DO [address] [facility] [place] [address] PCP - General 05/27/00 Open Tenter Operator Relationship Specialty Start Date End Date Devon Moreira, DO [address] [facility] [place] [address] PCP - General 05/27/00 Open Tenter Operator Relationship Specialty Start Date End Date Lillie Devon García, DO [address] [place] [address] PCP - General 05/27/00 Open Tenter Operator Relationship Specialty Start Date End Date Devon Moreira, DO [address] [place] [address] PCP - General 05/27/00 Open Tenter Operator Relationship Specialty Start Date End Date Devon Moreira, DO [address] [place] [address] PCP - General 05/27/00 Open Tenter Operator Relationship Specialty Start Date End Date Devon Moreira, DO [address] [place] [address] PCP - General 05/27/00 Open Tenter Operator Relationship Specialty Start Date End Date Devon Moreira, DO [address] [place] [address] PCP - General 05/27/00 Open Tenter Operator Relationship Specialty Start Date End Date Devon Moreira, DO [address] [place] [address] PCP - General 05/27/00 Open Tenter Operator Relationship Specialty Start Date End Date Devon Moreira, DO [address] [place] [address] PCP - General 05/27/00 Open Tenter Operator Relationship Specialty Start Date End Date Devon Moreira, DO [address] [place] [address] PCP - General 05/27/00 Open Tenter Operator Relationship Specialty Start Date End Date Devon Moreira, DO [address] [place] [address] PCP - General 05/27/00 Open Tenter Operator Relationship Specialty Start Date End Date Devon Moreira, DO [address] [place] [address] PCP - General 05/27/00 Open Tenter Operator Relationship Specialty Start Date End Date Devon Moreira, DO [address] [place] [address] PCP - General 05/27/00 Open Tenter Operator Relationship Specialty Start Date End Date Devon Moreira, DO [address] [facility] [place] [address] PCP - General 05/27/00 Open Tenter Operator Relationship Specialty Start Date End Date Devon Moreira, DO [address] [facility] [place] [address] PCP - General 05/27/00 Open Tenter Operator Relationship Specialty Start Date End Date Devon Moreira, DO [address] [facility] [place] [address] PCP - General 05/27/00 Open Tenter Operator Relationship Specialty Start Date End Date LillieDevon, DO [address] [facility] [place] [address] PCP - General 05/27/00 Open Tenter Operator Relationship Specialty Start Date End Date Lillie Devon Raquel, DO [address] [facility] [place] [address] PCP - General 05/27/00 Team Status: Active Member Role Status Franklin Moreira DO Primary Care Provider Active Team Status: Inactive Member Role Status Franklin Moreira DO Primary Care Provider Active Sadia Aguilar APRN Attending Provider Active Open Tenter Operator Relationship Specialty Start Date End Date Devon Moreira DO [address] [facility] [place] [address] PCP - General 05/27/00 Open Tenter Operator Relationship Specialty Start Date End Date Devon oMreira DO [address] [facility] [place] [address] PCP - General 05/27/00 Open Tenter Operator Relationship Specialty Start Date End Date Ni Cabrera, DO [address] [place] [address] PCP - ACO Reach 07/09/22 Devon Moreira MD [address] [place] [id number] PCP - General Internal Medicine 07/14/22 PRN Active and Recently Administ ered Medications (unrecognized section and content) Medication Order 01/10/2022 01/11/2022 01/12/2022 lidocaine (PF) 10 mg/mL (1 %) injection (XYLOCAINE) SUBCUTANEOUS, X (OR/PROCEDURE) PRN, Starting on Wed01/12/22 at 1032, Until Wed01/13/22 at 0303, Intraprocedure 1032 (Given - Provid er: Vani Hdz APRN.HEEL WHEELER) Goals (unrecognized section and content) Goals may [...] BE BASED ON THE PRIMARY CLINICAL RECORDS. [email or web address] provides no warranty or guarantee of the accuracy or completeness of information in this document.
[2023-06-02 07:27] LABS: Hematocrit 30.2 % (42.0-54.0); Hemoglobin 9.5 g/dL (14.0-18.0); Mean Corpuscular HGB Conc 31.5 g/dL (29.9-35.2); Mean Corpuscular Hemoglobin 26.3 pg (25.9-34.0); Mean Corpuscular Volume 83.7 fL (80.0-94.0); Platelet Count 211 10^3/uL (150-450); Red Blood Count 3.61 10^6/uL (4.70-6.10); Red Cell Distribution Width 15.6 % (11.0-15.0); White Blood Count 6.3 10^3/uL (4.0-11.0)
[2023-06-02 07:46] LABS: INR 2.44; Prothrombin Time 24.6 sec (9.0-11.6)
[2023-06-02 08:12] LABS: Basophils Abs Manual 0.12 10^3/uL (0.00-0.10); Eosinophils Absolute Manual 0.25 10^3/uL (0.00-0.70); Lymphocytes Absolute Manual 2.14 10^3/uL (1.20-3.80); Segmented Neut Absolute Manual 2.77 10^3/uL (1.4-6.5)
[2023-06-02 08:39] LABS: Alanine Aminotransferase 17 U/L (16-63); Albumin Globulin Ratio 0.8; Albumin Level 2.6 g/dL (3.4-5.0); Alkaline Phosphatase 85 U/L (46-116); Aspartate Amino Transferase 15 U/L (15-37); BUN Creatinine Ratio 28.6; Bilirubin Total 0.5 mg/dL (0.2-1.0); Calcium 8.6 mg/dL (8.5-10.1); Carbon Dioxide 29.2 mmol/L (21.0-32.0); Chloride 103 mmol/L (98-107); Estimated GFR (African America 48 (>=60); Estimated GFR (Non-African Ame 40 (>=60); Globulin 3.4 g/dL; Glucose 242 mg/dL (74-106); Potassium 4.2 mmol/L (3.5-5.1); Sodium 138 mmol/L (136-145)
== END 2023-06-02 03:18 | disposition home or self-care (01) ==
LOC: LAB 03:17
PROVIDERS: PCP Internal Medicine; Visit Provider Internal Medicine
DX: N28.9 Disorder of kidney and ureter, unspecified (principal)
CPT/HCPCS: 36415; 80053; 80197; 85007; 85027; 85610

== ENCOUNTER 2023-06-08 09:37 | Outpatient (OUT) | payer MEDICARE, OTHER, SELFPAY ==
--- NOTE | 2023-06-08 10:00 | CA_ITS ---
Patient Name: ALEX ALMONTE MR#: [id number] : 1945 Exam Date: 06/08/2023 Ordering Doctor: CAITY IBRAHIM CNP ECHOCARDIOGRAM REPORT PROCEDURE: CA ECHO DOPPLER COMPLETE INDICATIONS: Abnormal ECG, open heart surgery (Divinci procedure), pacemaker, diabetes COMPARISON: None. DESCRIPTION: COMPLETE ECHOCARDIOGRAM Real-time transthoracic echocardiography with 2D, M-mode, spectral and color flow Doppler performed. QUALITY: Technically difficult procedure, patient done in wheelchair. 75 , 185#, 2.14 m2, BP 108/58 LEFT VENTRICLE: Normal chamber size. Mild concentric left ventricular hypertrophy. Systolic function is difficult to assess due to poor sound transmission but appears mildly reduced. LV EF: Mildly reduced left ventricular ejection fraction, (45-50%). DIASTOLIC: ATRIAL SEPTUM: LEFT ATRIUM: Moderate dilatation. RIGHT ATRIUM: Mild dilatation. RIGHT VENTRICLE: Normal chamber size. Normal right ventricular systolic function. Pacer wire present. TRICUSPID VALVE: Normal mobility and thickness. No stenosis with mild regurgitation. No evidence of pulmonary hypertension. RVSP 28 mmHg MITRAL VALVE: Normal mobility and thickness. No evidence of mitral valve stenosis. Mild mitral annular calcification. Trivial mitral regurgitation. AORTIC VALVE: Normal trileaflet appearance. No visible sclerosis. Normal leaflet mobility. No evidence of aortic valve stenosis. No aortic regurgitation. AORTIC ROOT: Normal diameter and appearance. Ascending aorta is normal in size. PULMONIC VALVE: Normal thickness and mobility. No stenosis. No regurgitation. PERICARDIUM: No evidence of pericardial effusion. IVC: Not well visualized. PLEURA: CONCLUSION: 1. Mild concentric left ventricular hypertrophy with mildly reduced systolic function. LVEF is estimated at 45 to 50%. 2. Normal right ventricular size and systolic function. 3. Mild to moderate biatrial dilatation. 4. Mild tricuspid regurgitation. 5. Normal right-sided pressures. 6. Technically difficult study with poor sound transmission. Adult Echocardiography Procedure Report Left Ventricle LVEDD (3.7 - 5.6 cm): 4.56 cm LVESD (2.2 - 4.0 cm): 3.55 cm LVIVS thickness (0.6 - 1.2 cm): 1.27 cm LVPW thickness (0.5 - 1.0 cm): 1.24 cm E - e': 7.78 LVOT Max Gradient: 0.73 mm[Hg] LVOT Area (cm2): 0.43 m/s Peak Velocity (LVOT): 0.43 m/s Mean Velocity (LVOT): 0.25 m/s LVOT Diameter 2.52 cm Left Atrium LA Volume Index (2D A2C): 45.99 ml/m2 Left Atrium Systolic Dimension: 4.61 cm Mitral Valve MV E to A Ratio: 3.35 Mitral Valve A-Wave Peak Velocity: 0.20 m/s Mitral Valve E-Wave Peak Velocity: 0.67 m/s Right Ventricle Aorta AO Root Diam: 4.21 cm Ascending Ao Diam: 3.35 cm Aortic Valve AoV Area ([place]): 3.15 cm2, 3.15 cm2 AoV Area (VTI): 3.45 cm2, 3.45 cm2 Peak Velocity(Antegrade Flow): 0.68 m/s Peak Gradient(Antegrade Flow): 1.82 mm[Hg] Mean Velocity(Antegrade Flow): 0.46 m/s Mean Gradient(Antegrade Flow): 1.02 mm[Hg] Velocity Time Integral: 11.52 cm Tricuspid Valve Peak Velocity (Regurgitant Flow): 2.51 m/s Pulmonic Valve Peak Gradient: 1.00 mm[Hg], 0.74 mm[Hg] Right Atrium Dictated by: Sudarshan Alvarez M.D. on 06/08/2023 at 17:43 Approved by: Sudarshan Alvarez M.D. on 06/08/2023 at 17:55
== END 2023-06-08 09:38 | disposition home or self-care (01) ==
LOC: CARD 09:37
PROVIDERS: PCP Internal Medicine; Visit Provider Nurse Practitioner Family
DX: R94.31 Abnormal electrocardiogram [ECG] [EKG] (principal)
CPT/HCPCS: 93306

== ENCOUNTER 2023-06-09 01:38 | Outpatient (REF) | payer MEDICARE, OTHER, SELFPAY ==
--- OUTSIDE RECORDS SUMMARY | 2023-06-09 01:44 | XMS_ITS | CCD ---
Author Organization [facility] Care Team Providers Care Bakery Chef Name Role Phone PROVIDER, UNKNOWN Attending Unavailable [...] Primary Care Unavailable Ni Cabrera DO Unavailable [phone] Devon Moreira MD Primary Care Provider NI CABRERA Attending Unavailable DEVON MOREIRA Referring Unavailable CAITY IBRAHIM Attending Unavailable MILAGRO QUEEN Referring Unavailable SARTHAK PARNELL Attending Unavailable Allergies Allergy Classification Reported Allergen(s) Allergy Type Date of Onset Reaction(s) Facility (20 sources) Pyridostigmine; Translations: [PYRIDOSTIGMINE BROMIDE] Drug Allergy 2 GI Upset [facility] Work Phone: (1 source) Pyridostigmine Drug Allergy [...] Indications: Type 1 diabetes mellitus with nephropathy ([facility]) 3 units breakfast, 5 units lunch, 8 [...] 10 units and notify provider [facility] [place] [place] 155-852-130 MG (6 sources) take 155-852 tablets by mouth twice daily [facility] [place] [place] 155-852-130 MG 1 tablet Orally twice daily Active take 155-852 tablets by mouth four times daily take 155-852 tablets by mouth four times daily [facility] [place] [place] 155-852-130 MG 1 tablet Orally Four times [...] needed. docusate sodium 50 mg / sennosides, [facility] 8.6 mg oral tablet (20 sources) Start: [...] by mouth daily with lunch. Magic Cup [place] with lunch 7110 mL 0 12/11/2021 Active Comment on above: Take 237 mL by mouth daily with lunch. 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] Onset: 7 [...] current use of immunosuppressive drug; Translations: [Other jail (current) drug therapy] Episodic Other aftercare (13 sources) Long-term current use of insulin; Translations: [medical terminologist (current) use of insulin] Episodic Other aftercare (10 sources) correction (current) use of insulin; Translations: [ALUMNI COORDINATOR CURRENT USE OF INSULIN] Onset: 2 Episodic Other aftercare (5 sources) medical terminologist (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 of anticoagulants; Translations: [ALUMNI COORDINATOR CURRNT USE ANTICOAGULANTS] Onset: 3 Episodic Other [...] 07-30-2006 Episodic Other aftercare (2 sources) Other jail (current) drug therapy; Translations: [OTH ALUMNI COORDINATOR CURRENT DRUG THERAPY] Onset: 02-05-2022 Episodic Other aftercare (4 sources) Encounter for orthopedic aftercare following surgical amputation; Translations: [ENC ORTHOPED AFTERCARE FLW SURG AMP] Onset: 02-05-2022 Episodic Other aftercare (4 sources) medical terminologist (current) use of antibiotics; Translations: [[facility] CURRENT USE ANTIBIOTICS] Onset: 12-20-2021 Episodic Other aftercare (1 source) correction (current) use of aspirin; Translations: [MCC CURRENT USE OF ASPIRIN] Onset: 01-19-2022 Episodic [...] Range Facility Office Visiton 05-19-2023 Follow-up visit [id number] Alex Almonte 1945 M Date Provider Department Center 05/19/2023 CAITY PALACIOS CARD [facility] Family History Problem Relation Age of Onset Cancer Mother Aneurysm Father Cancer Father Parkinsonism Father Family Status - Relation Status Age at Mother Father Level of Service:66386 DC OFFICE/OUTPATIENT ESTABLISHED LOW MDM 20 MIN Reason for Visit and Comments: Follow-up [172574] - 6 month follow up Normal [facility] HbA1c (Bld) [Mass fraction]o n 03-18-2023 Interpretation and review of laboratory results Normal [facility] POCT glycosylated hemoglobin (Hb A1C) docked deviceon 03-18-2023 HbA1c (Bld) [Mass fraction] 7.8 % [facility] CNPRosalie 12-25-2022 CNPN Telephone (TXCTGL) ALEX ALMONTE ([id number]) 1945 M Date Time Provider Department 12/25/22 KIDNEY TXP COORDINATORS TXCTGL During your visit today, we recorded the following information about you: Duane Ryan 12/25/2022 10:41 AM Signed Labs 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 Administrative Scleroscope Tester Allergies As of Date: 12/25/2022 Noted Allergy [...] by mouth daily with lunch. 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 Magic Cup [place] with lunch aspirin, enteric coated (ASPIRIN, ENTERIC [...] in am? thanks! RF Pts RN at [facility] reports pts sister picks up Rx [...] 0. (more content not included)... Normal [facility] Office Visiton 09-09-2022 Follow-up visit [id number] Alex Almonte 1945 M Date Provider Department Center 09/09/2022 1596-SARTHAK PARNELL CARD [facility] Family History Problem Relation Age of Onset Cancer Mother Aneurysm Father Cancer Father Parkinsonism Father Family Status - Relation Status Age at Mother Father Level of Service:81589 DC OFFICE/OUTPATIENT ESTABLISHED MOD MDM 30-39 MIN Normal [facility] Glucose Poct Glucometerson 0 07-20-2022 Commemt1 Glu2: Cleaned Meter Normal [facility] Comment on above: Result Comment: PERF ORMED BY: [facility] [address] [place] [address] PRODUCTION MANAGER JOSE F ELLIOTT M.D. Performed By: #### G LULS #### Point of Care testing , Glucose [Mass/Vol] 176 mg/dL Normal [facility] Comment on above: Result Comment: [facility] Glucose Reference Range is dependent on time and content of last meal. Glucose of more than 200 mg/dL in a nonstressed, ambulatory subject supports the diagnosis of Diabetes Mellitus. Performed By: #### G MADY #### Point of Care testing , FK506 (TACROLIMUS) WHOLE BLO ODon 07-12-2022 Tacrolimus (FK506), Blood 10.9 ng/mL Normal 2.0-20.0 [facility] Comment on above: Result Comment: Trou gh (immediately following transplant) 15.0 . Trough (steady state, 2 weeks or more after transplant): 3.0 - 8.0 . Performed by LC-MS/MS technology. Performed By: #### F K506T ####[facility] [address] [place], [place] [address]Dr. Farhat Leal CBC AUTO DIFFon 07-10-2022 BASO # 0.0 103/ul Normal 0.0-0.1 [facility] Comment on above: Performed By: #### C BC ####[facility] [address] [place], [place] [address]Dr. Farhat Leal Basophils/100 WBC (Bld) 0.5 % Normal 0.2-2.0 [facility] Comment on above: Performed By: #### C BC ####[facility] V[address] [place], [place] [address]Dr. Farhat Leal EO # 0.3 103/ul Normal 0.0-0.7 [facility] Comment on above: Performed By: #### C BC ####[facility] [address]jltwkuf[address] [place], [place] [address]Dr. Farhat Leal Eosinophils/100 WBC (Bld) 4.9 % Normal 0.9-7.0 [facility] Comment on above: Performed By: #### C BC ####[facility] [address]en[address]av[address] [place], [place] [address]Dr. Farhat Leal Erythrocyte distribution width (RBC) [Ratio] 13.8 % Normal 11.0-15.0 [facility] Comment on above: Performed By: #### C BC ####[facility] [address] [place] [address]Dr. Farhat Leal Hematocrit (Bld) [Volume fraction] 36.6 % Critically low 42.0-54.0 [facility] Comment on above: Performed By: #### C BC ####[facility] [address] [place] [address]DrSkylar Farhat Leal Hemoglobin (Bld) [Mass/Vol] 12.2 g/dL Critically low 14.0-18.0 [facility] Comment on above: Performed By: #### C BC ####[facility] [address] [place], [place] [address]DrSkylar Madelynlorri Leal IG # 0.01 10e3/ul Normal 0.00-0.03 [facility] Comment on above: Performed By: #### C BC ####[facility] C[address]nlbusu[address] [place], [place] [address]DrSkylar Leal IG % 0.2 % Normal 0.0-0.5 [facility] Comment on above: Performed By: #### C BC ####[facility] G[address]xd[address]tz[address] [place], [place] [address]DrSkylar Farhat Elvis LYMPH # 2.2 103/ul Normal 1.2-3.8 [facility] Comment on above: Performed By: #### C BC ####[facility] X[address]im[address] [place], [place] [address]DrSkylar Madelynlorri Leal Lymphocytes/100 WBC (Bld) 33.9 % Normal 20.5-60.0 [facility] Comment on above: Performed By: #### C BC ####[facility] M[address]fhrydob[address] [place], [place] [address]DrSkylar Madelynlorri Leal MANUAL DIFF REQ NO Normal [facility] Comment on above: Performed By: #### C BC ####[facility] [address]xw[address]rs[address] [place], [place] [address]DrSkylar Leal MCH (RBC) [Entitic mass] 31.0 pg Normal 25.9-34.0 [facility] Comment on above: Performed By: #### C BC ####[facility] [address] [place] [id number]. Farhat Leal MCHC (RBC) [Mass/Vol] 33.3 g/dL Normal 29.9-35.2 [facility] Comment on above: Performed By: #### C BC ####[facility] [address]pfrq[address] [place] [address]DrSkylar Leal MCV (RBC) [Entitic vol] 93.1 fL Normal 80.0-94.0 [facility] Comment on above: Performed By: #### C BC ####[facility] [address]vbifu[address] [place], [place] [address]DrSkylar Leal MONO # 0.7 103/ul Normal 0.3-0.8 [facility] Comment on above: Performed By: #### C BC ####[facility] V[address]jesjhqco[address] [place], [place] [address]Dr. Farhat Leal Monocytes/100 WBC (Bld) 10.8 % Normal 1.7-12.0 [facility] Comment on above: Performed By: #### C BC ####[facility] [address]essrf[address] [place], [place] [address]Dr. Farhat Leal NEUT # 3.2 103/ul Normal 1.4-6.5 [facility] Comment on above: Performed By: #### C BC ####[facility] K[address]prmixp[address] [place], [place] [address]DrSkylar Leal Neutrophils/100 WBC (Bld) 49.7 % Normal 43.0-75.0 [facility] Comment on above: Performed By: #### C BC ####[facility] P[address] [place], [place] [id number] Leal Platelet mean volume (Bld) [Entitic vol] 10.9 fL Normal 9.5-13.5 [facility] Comment on above: Performed By: #### C BC ####[facility] X[address] [place], [place] [id number] Leal PLT 195 103/ul Normal 150-450 [facility] Comment on above: Performed By: #### C BC ####[facility] [address] [place] [address]Dr. Farhat Leal RBC 3.93 106/ul Critically low 4.70-6.10 [facility] Comment on above: Performed By: #### C BC ####[facility] [address] [place] [address]Dr. Farhat Leal WBC 6.4 103/ul Normal 4.0-11.0 [facility] Comment on above: Performed By: #### C BC ####[facility] [address]wh[address] [place] [address]Dr. Farhat Leal MAGNESIUMon 07-10-2022 Magnesium [Mass/Vol] 1.9 mg/dL Normal 1.8-2.4 [facility] Comment on above: Performed By: #### Demetrice Manzo PHOS ####[facility] Z[address]ux[address]cy[address] [place], [place] [address]Dr. Farhat Leal PHOSPHORUSon 07-10-2022 Phosphate [Mass/Vol] 4.7 mg/dL Normal 2.6-4.7 [facility] Comment on above: Performed By: #### HENRI Winters ####[facility] J[address]bfzwbj[address] [place], [place] [address]Dr. Farhat Leal PROF 14(COMP METB)on 023 Albumin [Mass/Vol] 2.7 g/dL Critically low 3.4-5.0 [facility] Comment on above: Performed By: #### C MP ####[facility] [address] [place] [address]Dr. Farhat Leal Albumin/Globulin [Mass ratio] 0.8 {ratio} Normal [facility] Comment on above: Performed By: #### C MP ####[facility] M[address]kpcaf[address] [place], [place] [address]Dr. Farhat Leal ALP [Catalytic activity/Vol] 59 U/L Normal 46-116 [facility] Comment on above: Performed By: #### C MP ####[facility] Pptcwlkimw[address] [place], [place] [address]Dr. Farhat Leal ALT [Catalytic activity/Vol] 16 U/L Normal 16-63 [facility] Comment on above: Performed By: #### C MP ####[facility] [address] [place] [address]Dr. Madelynlorri Elvis Anion gap [Moles/Vol] 12.3 mmol/L Normal Th [facility] Comment on above: Performed By: #### C MP ####[facility] [address]un[address] [place] [address]Dr. Madelynlorri Leal AST [Catalytic activity/Vol] 17 U/L Normal 15-37 [facility] Comment on above: Performed By: #### C MP ####[facility] Ozsnyslyos3[address] [place], [place] [address]Dr. Farhat Leal Bilirubin [Mass/Vol] 0.5 mg/dL Normal 0.2-1.0 [facility] Comment on above: Performed By: #### C MP ####[facility] Jy[address]lpvtbjo[address] [place], [place] [address]Dr. Farhat Leal Calcium [Mass/Vol] 8.5 mg/dL Normal 8.5-10.1 [facility] Comment on above: Performed By: #### C MP ####[facility] Es[address]rxwvsnz[address] [place], [place] [address]Dr. Farhat Leal Chloride [Moles/Vol] 104 mmol/L Normal 98-107 [facility] Comment on above: Performed By: #### C MP ####[facility] Xviurpfkov[address] [place], [place] [address]Dr. Farhat Leal CO2 [Moles/Vol] 27.6 mmol/L Normal 21.0-32.0 [facility] Comment on above: Performed By: #### C MP ####[facility] U[address]ns[address]ffqk[address] [place], [place] [address]Dr. Farhat Leal Creatinine [Mass/Vol] 1.79 mg/dL Critically high 0.70-1.30 [facility] Comment on above: Performed By: #### C MP ####[facility] Qgdncpirmy[address] [place], [place] [address]Dr. Farhat Leal EGFR-AF SYRIAN 45 mL/min/1.73m2 Critically low >=60 [facility] Comment on above: Performed By: #### C MP ####[facility] [address] [place] [address]Dr. Farhat Elvis EGFR-NON AF SYRIAN 37 mL/min/1.73m2 Critically low >=60 [facility] Comment on above: Performed By: #### C MP ####[facility] [address] [place] [address]Dr. Farhat Elvis Globulin (S) [Mass/Vol] 3.2 g/dL Normal [facility] Comment on above: Performed By: #### C MP ####[facility] H[address]zocbkk[address] [place], [place] [address]Dr. Madelynlorri Elvis Glucose [Mass/Vol] 203 mg/dL Critically high 74-106 T [facility] Comment on above: Performed By: #### C MP ####[facility] [address]kwiw[address] [place] [address]Dr. Farhat Leal Potassium [Moles/Vol] 3.9 mmol/L Normal 3.5-5.1 [facility] Comment on above: Performed By: #### C MP ####[facility] Z[address]vsjlug[address] [place], [place] [address]Dr. Madelynlorri Elvis Protein [Mass/Vol] 5.9 g/dL Critically low 6.4-8.2 Th [facility] Comment on above: Performed By: #### C MP ####[facility] [address] [place] [address]Dr. Madelynlorri Leal Sodium [Moles/Vol] 140 mmol/L Normal 136-145 [facility] Comment on above: Performed By: #### C MP ####[facility] [address]nj[address] [place] [address]Dr. Farhat Leal Urea nitrogen [Mass/Vol] 61.0 mg/dL Critically high 7.0-18.0 [facility] Comment on above: Performed By: #### C MP ####[facility] Or[address] [place], [place] [address]DrSkylar Leal Urea nitrogen/Creatinine [Mass ratio] 34.1 mg/mg Normal [facility] Comment on above: Performed By: #### C MP ####[facility] D[address]smpt[address]dc[address] [place], [place] [address]DrSkylar Leal PROTIMEon 07-10-2022 INR Coag (PPP) [Relative time] 2.95 {INR} Normal [facility] Comment on above: Performed By: #### P T ####[facility] W[address]emm[address] [place], [place] [address]DrSkylar Leal INR GUIDELINES SEE BELOW Normal [facility] Comment on above: Result Comment: MALINA RED INR: 2.0 - 3.0 CONDITIONS NOT LISTED BELOW 2.5 - 3.5 FOR PROSTHETIC HEART VALVE REPLACEMENT 2.5 - 3.5 RECURRENT THROMBOSIS Performed By: #### P T ####[facility] [address] [place], [place] [address]DrSkylar Leal PT Coag (PPP) [Time] 29.4 s Critically high 9.0-11.6 [facility] Comment on above: Performed By: #### P T ####[facility] [address] [place], [place] [address]DrSkylar Leal FK506 (TACROLIMUS) WHOLE BLO ODon 07-07-2022 Tacrolimus (FK506), Blood 8.3 ng/mL Normal 2.0-20.0 [facility] Comment on above: Result Comment: Trou gh (immediately following transplant) 15.0 . Trough (steady state, 2 weeks or more after transplant): 3.0 - 8.0 . Performed by LC-MS/MS technology. Performed By: #### F K506T ####[facility] R[address]fzssk[address] [place], [place] [address]DrSkylar Leal CBC AUTO DIFFon 07-03-2022 BASO # 0.0 103/ul Normal 0.0-0.1 [facility] Comment on above: Performed By: #### C BC ####[facility] O[address]mhpeuas[address] [place], [place] [address]DrSkylar Leal Basophils/100 WBC (Bld) 0.6 % Normal 0.2-2.0 [facility] Comment on above: Performed By: #### C BC ####[facility] [address] [place] [address]Dr. Farhat Leal EO # 0.3 103/ul Normal 0.0-0.7 [facility] Comment on above: Performed By: #### C BC ####[facility] [address]vtraz[address] [place] [address]Dr. Farhta Leal Eosinophils/100 WBC (Bld) 4.1 % Normal 0.9-7.0 [facility] Comment on above: Performed By: #### C BC ####[facility] Qedmhqsgod[address] [place], [place] [address]Dr. Farhat Leal Erythrocyte distribution width (RBC) [Ratio] 14.0 % Normal 11.0-15.0 [facility] Comment on above: Performed By: #### C BC ####[facility] Oaccumbyem[address] [place], [place] [address]Dr. Farhat Lael Hematocrit (Bld) [Volume fraction] 35.9 % Critically low 42.0-54.0 [facility] Comment on above: Performed By: #### C BC ####[facility] [address]xw[address] [place], [place] [address]Dr. Farhat Leal Hemoglobin (Bld) [Mass/Vol] 12.0 g/dL Critically low 14.0-18.0 [facility] Comment on above: Performed By: #### C BC ####[facility] P[address]ubvqn[address] [place], [place] [address]DrSkylar Farhat Leal IG # 0.04 10e3/ul Critically high 0.00-0.03 [facility] Comment on above: Performed By: #### C BC ####[facility] [address]svolkuctx[address] [place], [place] [address]Dr. Madelynlorri Leal IG % 0.6 % Critically high 0.0-0.5 [facility] Comment on above: Performed By: #### C BC ####[facility] C[address]mbxckuua[address] [place], [place] [address]DrSkylar Leal LYMPH # 1.5 103/ul Normal 1.2-3.8 [facility] Comment on above: Performed By: #### C BC ####[facility] [address]bwv[address] [place] [address]Dr. Farhat Leal Lymphocytes/100 WBC (Bld) 21.5 % Normal 20.5-60.0 [facility] Comment on above: Performed By: #### C BC ####[facility] [address] [place] [address]Dr. Farhat Leal MANUAL DIFF REQ NO Normal [facility] Comment on above: Performed By: #### C BC ####[facility] [address]wf[address]hm[address] [place] [address]Dr. Farhat Leal MCH (RBC) [Entitic mass] 30.8 pg Normal 25.9-34.0 [facility] Comment on above: Performed By: #### C BC ####[facility] [address]vbqiw[address] [place], [place] [address]Dr. Farhat Leal MCHC (RBC) [Mass/Vol] 33.4 g/dL Normal 29.9-35.2 [facility] Comment on above: Performed By: #### C BC ####[facility] [address]igotyzbn[address] [place], [place] [address]Dr. Farhat Leal MCV (RBC) [Entitic vol] 92.1 fL Normal 80.0-94.0 [facility] Comment on above: Performed By: #### C BC ####[facility] [address]ke[address] [place] [address]Dr. Farhat Leal MONO # 0.6 103/ul Normal 0.3-0.8 [facility] Comment on above: Performed By: #### C BC ####[facility] [address]cfthlefed[address] [place], [place] [address]Dr. Farhat Leal Monocytes/100 WBC (Bld) 8.7 % Normal 1.7-12.0 [facility] Comment on above: Performed By: #### C BC ####[facility] Svclsxtckj[address] [place], [place] [address]Dr. Farhat Leal NEUT # 4.4 103/ul Normal 1.4-6.5 [facility] Comment on above: Performed By: #### C BC ####[facility] [address]hq[address] [place] [address]Dr. Farhat Elvis Neutrophils/100 WBC (Bld) 64.5 % Normal 43.0-75.0 [facility] Comment on above: Performed By: #### C BC ####[facility] [address] [place] [address]Dr. Madelynlorri Elvis Platelet mean volume (Bld) [Entitic vol] 10.1 fL Normal 9.5-13.5 [facility] Comment on above: Performed By: #### C BC ####[facility] [address]ac[address] [place] [address]Dr. Farhat Leal PLT 177 103/ul Normal 150-450 [facility] Comment on above: Performed By: #### C BC ####[facility] [address]xwc[address] [place] [address]Dr. Farhat Leal RBC 3.90 106/ul Critically low 4.70-6.10 [facility] Comment on above: Performed By: #### C BC ####[facility] [address]rmx[address] [place] [address]Dr. Farhat Leal WBC 6.8 103/ul Normal 4.0-11.0 [facility] Comment on above: Performed By: #### C BC ####[facility] [address]ovxiyuq[address] [place] [address]DrSkylar Leal PROF 14(COMP METB)on 023 Albumin [Mass/Vol] 2.8 g/dL Critically low 3.4-5.0 [facility] Comment on above: Performed By: #### C MP ####[facility] [address]mit[address] [place] [address]DrSkylar Leal Albumin/Globulin [Mass ratio] 0.8 {ratio} Normal [facility] [facility] Comment on above: Performed By: #### C MP ####[facility] Lnjnwdlpaf24[address] [place] [id number]. Farhat Leal ALP [Catalytic activity/Vol] 68 U/L Normal 46-116 [facility] Comment on above: Performed By: #### C MP ####[facility] Xxmmqqaoxu6696 [place] [phone]. Farhat Leal ALT [Catalytic activity/Vol] 20 U/L Normal 16-63 [facility] Comment on above: Performed By: #### C MP ####[facility] Elsyapihan4407 [place] [phone]. Farhat Leal Anion gap [Moles/Vol] 11.1 mmol/L Normal [facility] Comment on above: Performed By: #### C MP ####[facility] Kbwcwhhuzy6576 [place] [phone]. Farhat Leal AST [Catalytic activity/Vol] 22 U/L Normal 15-37 [facility] Comment on above: Performed By: #### C MP ####[facility] Rpxrmcmmon3345 [place] [phone]. Farhat Elvis Bilirubin [Mass/Vol] 0.4 mg/dL Normal 0.2-1.0 [facility] Comment on above: Performed By: #### C MP ####[facility] Zxyxamrvla8976 [place] [phone]. Farhat Elvis Calcium [Mass/Vol] 8.5 mg/dL Normal 8.5-10.1 [facility] Comment on above: Performed By: #### C MP ####[facility] Tihfftipyg4984 [place] [phone]. Farhat Elvis Chloride [Moles/Vol] 106 mmol/L Normal 98-107 [facility] Comment on above: Performed By: #### C MP ####[facility] Opuvzimhgk3411 [place] [phone]. Farhat Elvis CO2 [Moles/Vol] 29.1 mmol/L Normal 21.0-32.0 [facility] Comment on above: Performed By: #### C MP ####[facility] Cfvnokmsrk0273 [place] [phone]. Farhat Elvis Creatinine [Mass/Vol] 1.70 mg/dL Critically high 0.70-1.30 [facility] Comment on above: Performed By: #### C MP ####[facility] Mgmdxeeoju9660 [place] [address]Dr. Farhat Leal EGFR-AF SYRIAN 48 mL/min/1.73m2 Critically low >=60 [facility] Comment on above: Performed By: #### C MP ####[facility] Dlvnnlvsri2395 [place] [phone]. Farhat Leal EGFR-NON AF SYRIAN 39 mL/min/1.73m2 Critically low >=60 [facility] Comment on above: Performed By: #### C MP ####[facility] Nkltvyrjob4[address] [place] [address]Dr. Farhat Elvis Globulin (S) [Mass/Vol] 3.6 g/dL Normal [facility] Comment on above: Performed By: #### C MP ####[facility] Vrnwvtabie1503 [place] [address]Dr. Farhat Elvis Glucose [Mass/Vol] 312 mg/dL Critically high 74-106 [facility] Comment on above: Performed By: #### C MP ####[facility] Rhmbaosjyf4345 [place] [phone]. Farhat Elvis Potassium [Moles/Vol] 4.2 mmol/L Normal 3.5-5.1 [facility] Comment on above: Performed By: #### C MP ####[facility] Bcggpsjggm7157 [place] [address]Dr. Farhat Elvis Protein [Mass/Vol] 6.4 g/dL Normal 6.4-8.2 [facility] Comment on above: Performed By: #### C MP ####[facility] Bnvipgkaof5042 [place] [address]Dr. Farhat Leal Sodium [Moles/Vol] 142 mmol/L Normal 136-145 [facility] Comment on above: Performed By: #### C MP ####[facility] Cozqdaikbz4016 [place] [phone]. Farhat Elvis Urea nitrogen [Mass/Vol] 49.0 mg/dL Critically high 7.0-18.0 [facility] Comment on above: Performed By: #### C MP ####[facility] [address]ib[address] [place], [place] [address]Dr. Farhat Leal Urea nitrogen/Creatinine [Mass ratio] 28.8 mg/mg Normal [facility] Comment on above: Performed By: #### C MP ####[facility] Fawzxttnsi[address] [place], [place] [address]Dr. Farhat Leal PROTIMEon 07-03-2022 INR Coag (PPP) [Relative time] 2.23 {INR} Normal [facility] Comment on above: Performed By: #### P T ####[facility] Goozlssafa[address] [place], [place] [address]Dr. Farhat Leal INR GUIDELINES SEE BELOW Normal [facility] Comment on above: Result Comment: MALINA RED INR: 2.0 - 3.0 CONDITIONS NOT LISTED BELOW 2.5 - 3.5 FOR PROSTHETIC HEART VALVE REPLACEMENT 2.5 - 3.5 RECURRENT THROMBOSIS Performed By: #### P T ####[facility] Tgnmqhuibx368[address] [place], [place] [address]Dr. Farhat Leal PT Coag (PPP) [Time] 22.6 s Critically high 9.0-11.6 [facility] Comment on above: Performed By: #### P T ####[facility] Ozkltugpij0[address] [place], [place] [address]Dr. Farhat Leal FK506 (TACROLIMUS) WHOLE BLO ODon 06-29-2022 Tacrolimus (FK506), Blood 12.2 ng/mL Normal 2.0-20.0 [facility] Comment on above: Result Comment: Trou gh (immediately following transplant) 15.0 . Trough (steady state, 2 weeks or more after transplant): 3.0 - 8.0 . Performed by LC-MS/MS technology. Performed By: #### F K506T ####[facility] Ajidpbmzwv358[address] [place], [place] [address]Dr. Farhat Leal CBC AUTO DIFFon 06-26-2022 BASO # 0.0 103/ul Normal 0.0-0.1 [facility] Comment on above: Performed By: #### C BC ####[facility] Azcsppqluz9010 [place] [phone]. Farhat Leal Basophils/100 WBC (Bld) 0.5 % Normal 0.2-2.0 [facility] Comment on above: Performed By: #### C BC ####[facility] Fjdpcvxpzh[address] [place], [place] [id number]. Farhat Leal EO # 0.3 103/ul Normal 0.0-0.7 [facility] Comment on above: Performed By: #### C BC ####[facility] Ydimuhwxmh110[address] [place], [place] [address]Dr. Farhat Leal Eosinophils/100 WBC (Bld) 4.3 % Normal 0.9-7.0 [facility] Comment on above: Performed By: #### C BC ####[facility] Ygdivrljcq[address] [place], [place] [address]Dr. Farhat Leal Erythrocyte distribution width (RBC) [Ratio] 14.1 % Normal 11.0-15.0 [facility] Comment on above: Performed By: #### C BC ####[facility] [address]aiwqotvxm[address] [place], [place] [address]Dr. Farhat Leal Hematocrit (Bld) [Volume fraction] 35.4 % Critically low 42.0-54.0 [facility] Comment on above: Performed By: #### C BC ####[facility] Ndyqucrzuc[address] [place], [place] [address]Dr. Farhat Leal Hemoglobin (Bld) [Mass/Vol] 11.8 g/dL Critically low 14.0-18.0 [facility] Comment on above: Performed By: #### C BC ####[facility] Dlvgoqlwbv5532[address] [place], [place] [address]Dr. Farhat Leal IG # 0.02 10e3/ul Normal 0.00-0.03 [facility] Comment on above: Performed By: #### C BC ####[facility] Wpzeuabwew[address] [place], [place] [address]Dr. Farhat Leal IG % 0.3 % Normal 0.0-0.5 [facility] Comment on above: Performed By: #### C BC ####[facility] Dwimyqacfu3865 [place] [phone]. Farhat Leal LYMPH # 2.4 103/ul Normal 1.2-3.8 [facility] Comment on above: Performed By: #### C BC ####[facility] Khfhykpedq4951 [place] [phone]. Frahat Elvis Lymphocytes/100 WBC (Bld) 40.4 % Normal 20.5-60.0 [facility] Comment on above: Performed By: #### C BC ####[facility] Ekgvussmhm[address] [place] [phone]. Madelynlorri Leal MANUAL DIFF REQ NO Normal [facility] Comment on above: Performed By: #### C BC ####[facility] Zepfjaeval7211 [place] [phone]. Farhat Elvis MCH (RBC) [Entitic mass] 31.0 pg Normal 25.9-34.0 [facility] Comment on above: Performed By: #### C BC ####[facility] Hxmlldztxc1654 [place] [phone]. Farhat Leal MCHC (RBC) [Mass/Vol] 33.3 g/dL Normal 29.9-35.2 [facility] Comment on above: Performed By: #### C BC ####[facility] Noxwrnbbca5125 [place] [address]Dr. Farhat Leal MCV (RBC) [Entitic vol] 92.9 fL Normal 80.0-94.0 [facility] Comment on above: Performed By: #### C BC ####[facility] Mmcxkamduq6485 [place] [phone]. Farhat Elvis MONO # 0.7 103/ul Normal 0.3-0.8 [facility] Comment on above: Performed By: #### C BC ####[facility] Njlegqngnb8754 [place] [address]Dr. Madelynlorri Leal Monocytes/100 WBC (Bld) 11.1 % Normal 1.7-12.0 [facility] Comment on above: Performed By: #### C BC ####[facility] Rdswfbqkzb9846 [place] [address]Dr. Farhat Leal NEUT # 2.6 103/ul Normal 1.4-6.5 [facility] Comment on above: Performed By: #### C BC ####[facility] Mfdmbcdioc3052 [place] [phone]. Farhat Leal Neutrophils/100 WBC (Bld) 43.4 % Normal 43.0-75.0 [facility] Comment on above: Performed By: #### C BC ####[facility] Xwhnknqsmk6949 [place] [address]Dr. Farhat Leal Platelet mean volume (Bld) [Entitic vol] 10.4 fL Normal 9.5-13.5 [facility] Comment on above: Performed By: #### C BC ####[facility] Yfjokdnhbh4[address] [place], [place] [address]Dr. Madelynlorri Elvis PLT 211 103/ul Normal 150-450 [facility] Comment on above: Performed By: #### C BC ####[facility] Ckbafzowct[address] [place], [place] [address]Dr. Farhat Leal RBC 3.81 106/ul Critically low 4.70-6.10 [facility] Comment on above: Performed By: #### C BC ####[facility] Mevgeadhkt[address] [place], [place] [address]Dr. Farhat Leal WBC 6.0 103/ul Normal 4.0-11.0 [facility] Comment on above: Performed By: #### C BC ####[facility] Aestdferay[address] [place], [place] [address]Dr. Farhat Leal PROF 14(COMP METB)on 023 Albumin [Mass/Vol] 2.6 g/dL Critically low 3.4-5.0 [facility] Comment on above: Performed By: #### C MP ####[facility] Mpaknxtudl00[address] [place], [place] [address]Dr. Farhat Leal Albumin/Globulin [Mass ratio] 0.8 {ratio} Normal [facility] Comment on above: Performed By: #### C MP ####[facility] Flwdouisow9383 [place] [address]Dr. Farhat Leal ALP [Catalytic activity/Vol] 64 U/L Normal 46-116 [facility] Comment on above: Performed By: #### C MP ####[facility] Vefgevcusi5580 [place] [address]Dr. Farhat Leal ALT [Catalytic activity/Vol] 18 U/L Normal 16-63 [facility] Comment on above: Performed By: #### C MP ####[facility] Adhbcsykvu9371 [place] [address]Dr. Farhat Leal Anion gap [Moles/Vol] 10.2 mmol/L Normal [facility] Comment on above: Performed By: #### C MP ####[facility] Oacxxchbyk01[address] [place], [place] [address]Dr. Farhat Leal AST [Catalytic activity/Vol] 16 U/L Normal 15-37 [facility] Comment on above: Performed By: #### C MP ####[facility] Ktutjuvolt27[address] [place], [place] [address]Dr. Farhat Leal Bilirubin [Mass/Vol] 0.6 mg/dL Normal 0.2-1.0 [facility] Comment on above: Performed By: #### C MP ####[facility] Bpkkmffhlg[address] [place], [place] [address]Dr. Farhat Leal Calcium [Mass/Vol] 8.5 mg/dL Normal 8.5-10.1 [facility] Comment on above: Performed By: #### C MP ####[facility] Ezogfmxznr5178 [place] [address]Dr. Farhat Leal Chloride [Moles/Vol] 106 mmol/L Normal 98-107 [facility] Comment on above: Performed By: #### C MP ####[facility] Qotfsmvxfj85[address] [place], [place] [address]Dr. Farhat Leal CO2 [Moles/Vol] 29.8 mmol/L Normal 21.0-32.0 [facility] Comment on above: Performed By: #### C MP ####[facility] Dhradxoyiu8615 [place] [phone]. Farhat Leal Creatinine [Mass/Vol] 1.60 mg/dL Critically high 0.70-1.30 [facility] Comment on above: Performed By: #### C MP ####[facility] Qhcijfuyxe6477 [place] [phone]. Farhat Leal EGFR-AF SYRIAN 51 mL/min/1.73m2 Critically low >=60 [facility] Comment on above: Performed By: #### C MP ####[facility] Ubzynvwaej5665 [place] [address]Dr. Farhat Leal EGFR-NON AF SYRIAN 42 mL/min/1.73m2 Critically low >=60 [facility] Comment on above: Performed By: #### C MP ####[facility] Qvdrqrtvfh4820 [place] [phone]. Farhat Leal Globulin (S) [Mass/Vol] 3.4 g/dL Normal [facility] Comment on above: Performed By: #### C MP ####[facility] Djcvwdqqvu2618 [place] [address]Dr. Farhat Leal Glucose [Mass/Vol] 178 mg/dL Critically high 74-106 [facility] Comment on above: Performed By: #### C MP ####[facility] Fwaqsvtfma8604 [place] [address]Dr. Farhat Leal Potassium [Moles/Vol] 4.0 mmol/L Normal 3.5-5.1 [facility] Comment on above: Performed By: #### C MP ####[facility] Rtdheexxog8364 [place] [address]Dr. Farhat Leal Protein [Mass/Vol] 6.0 g/dL Critically low 6.4-8.2 [facility] Comment on above: Performed By: #### C MP ####[facility] Qrfbkcmllz4109 [place] [phone]. Farhat Leal Sodium [Moles/Vol] 142 mmol/L Normal 136-145 [facility] Comment on above: Performed By: #### C MP ####[facility] Rpqizuadcm0907 [place] [address]Dr. Farhat Leal Urea nitrogen [Mass/Vol] 49.0 mg/dL Critically high 7.0-18.0 [facility] Comment on above: Performed By: #### C MP ####[facility] Moltkrmgww4143 [place] [address]Dr. Farhat Leal Urea nitrogen/Creatinine [Mass ratio] 30.6 mg/mg Normal [facility] Comment on above: Performed By: #### C MP ####[facility] Jszlsplwnh8168 [place] [address]Dr. Farhat Leal PROTIMEon 06-26-2022 INR Coag (PPP) [Relative time] 1.77 {INR} Normal [facility] Comment on above: Performed By: #### P T ####[facility] Kkolfosmoa[address] [place], [place] [address]Dr. Farhat Leal INR GUIDELINES SEE BELOW Normal [facility] Comment on above: Result Comment: MALINA RED INR: 2.0 - 3.0 CONDITIONS NOT LISTED BELOW 2.5 - 3.5 FOR PROSTHETIC HEART VALVE REPLACEMENT 2.5 - 3.5 RECURRENT THROMBOSIS Performed By: #### P T ####[facility] Bursmtuhes[address] [place], [place] [address]Dr. Farhat Leal PT Coag (PPP) [Time] 18.2 s Critically high 9.0-11.6 [facility] Comment on above: Performed By: #### P T ####[facility] Wafmgfqzhm84[address] [place], [place] [address]Dr. Farhat Leal FK506 (TACROLIMUS) WHOLE BLO ODon 06-22-2022 Tacrolimus (FK506), Blood 24.5 ng/mL Invalid Interpretation Code 2.0-20.0 [facility] Comment on above: Result Comment: Trou gh (immediately following transplant) 15.0 . Trough (steady state, 2 weeks or more after transplant): 3.0 - 8.0 . Performed by LC-MS/MS technology.Patient drug level exceeds published reference range. Evaluateclinically for signs of potential toxicity. Performed By: #### F K506T ####[facility] Pdwbmpkopf8879 [place] [phone]. Farhat Leal CBC AUTO DIFFon 06-19-2022 BASO # 0.1 103/ul Normal 0.0-0.1 [facility] Comment on above: Performed By: #### C BC ####[facility] Owpdbxkdwu[address] [place], [place] [address]Dr. Madelynlorri Leal Basophils/100 WBC (Bld) 0.7 % Normal 0.2-2.0 [facility] Comment on above: Performed By: #### C BC ####[facility] Fvxcsxdhva9[address] [place], [place] [address]Dr. Madelynlorri Leal EO # 0.4 103/ul Normal 0.0-0.7 [facility] Comment on above: Performed By: #### C BC ####[facility] Yzzgsjxbxt29[address] [place], [place] [address]Dr. Madelynlorri Leal Eosinophils/100 WBC (Bld) 5.7 % Normal 0.9-7.0 [facility] Comment on above: Performed By: #### C BC ####[facility] Jxtbcgmdab57[address] [place], [place] [address]Dr. Madelynlorri Leal Erythrocyte distribution width (RBC) [Ratio] 14.5 % Normal 11.0-15.0 [facility] Comment on above: Performed By: #### C BC ####[facility] Lbidknlgkz1994[address] [place], [place] [address]Dr. Farhat Leal Hematocrit (Bld) [Volume fraction] 34.1 % Critically low 42.0-54.0 [facility] Comment on above: Performed By: #### C BC ####[facility] Fbabcfnlpr38[address] [place], [place] [address]Dr. Madelynlorri Leal Hemoglobin (Bld) [Mass/Vol] 11.3 g/dL Critically low 14.0-18.0 [facility] Comment on above: Performed By: #### C BC ####[facility] Cloorvwtgn3817[address] [place], [place] [address]Dr. Farhat Leal IG # 0.02 10e3/ul Normal 0.00-0.03 [facility] Comment on above: Performed By: #### C BC ####[facility] Vdrvsykjgw8824 [place] [phone]. Madelynlorri Leal IG % 0.3 % Normal 0.0-0.5 [facility] Comment on above: Performed By: #### C BC ####[facility] Hkcjczloup5776 [place] [address]Dr. Farhat Elvis LYMPH # 3.1 103/ul Normal 1.2-3.8 [facility] Comment on above: Performed By: #### C BC ####[facility] Bwlvwknccc4032 [place] [address]Dr. Madelynlorri Leal Lymphocytes/100 WBC (Bld) 40.6 % Normal 20.5-60.0 [facility] Comment on above: Performed By: #### C BC ####[facility] Vqebilkhfn8857 [place] [address]Dr. Farhat Leal MANUAL DIFF REQ NO Normal [facility] Comment on above: Performed By: #### C BC ####[facility] Dauwvdjkai0736 [place] [phone]. Farhat Elvis MCH (RBC) [Entitic mass] 30.6 pg Normal 25.9-34.0 [facility] Comment on above: Performed By: #### C BC ####[facility] Lewcusstgt0709 [place] [address]Dr. Farhat Elvis MCHC (RBC) [Mass/Vol] 33.1 g/dL Normal 29.9-35.2 [facility] Comment on above: Performed By: #### C BC ####[facility] Xgskxssbld2782 [place] [address]Dr. Farhat Leal MCV (RBC) [Entitic vol] 92.4 fL Normal 80.0-94.0 [facility] Comment on above: Performed By: #### C BC ####[facility] Fqtq[address]raeo[address] [place], [place] [address]Dr. Farhat Leal MONO # 0.8 103/ul Normal 0.3-0.8 [facility] Comment on above: Performed By: #### C BC ####[facility] Ipolhquqki9552 [place] [phone]. Farhat Leal Monocytes/100 WBC (Bld) 10.6 % Normal 1.7-12.0 [facility] Comment on above: Performed By: #### C BC ####[facility] Ylptpjcbjf1244 [place] [address]Dr. Farhat Leal NEUT # 3.2 103/ul Normal 1.4-6.5 [facility] Comment on above: Performed By: #### C BC ####[facility] Gpjhpgdocc4817 [place] [phone]. Madelynlorri Leal Neutrophils/100 WBC (Bld) 42.1 % Critically low 43.0-75.0 [facility] Comment on above: Performed By: #### C BC ####[facility] Aagyceundo5035 [place] [address]Dr. Madelynlorri Elvis Platelet mean volume (Bld) [Entitic vol] 10.6 fL Normal 9.5-13.5 [facility] Comment on above: Performed By: #### C BC ####[facility] Hymuzbvyzd5828 [place] [phone]. Farhat Elvis PLT 187 103/ul Normal 150-450 [facility] Comment on above: Performed By: #### C BC ####[facility] Cfeimdpjqg8301 [place] [address]Dr. Madelynlorri Leal RBC 3.69 106/ul Critically low 4.70-6.10 [facility] Comment on above: Performed By: #### C BC ####[facility] Tqhmvejosa6339 [place] [address]Dr. Farhat Leal WBC 7.7 103/ul Normal 4.0-11.0 [facility] Comment on above: Performed By: #### C BC ####[facility] Ixobzwntvl7333 [place] [address]Dr. Farhat Leal PROF 14(COMP METB)on 023 Albumin [Mass/Vol] 2.5 g/dL Critically low 3.4-5.0 [facility] Comment on above: Performed By: #### C MP ####[facility] Zqhujhasoe5278 [place] [address]Dr. Madelynlorri Elvis Albumin/Globulin [Mass ratio] 0.8 {ratio} Normal [facility] Comment on above: Performed By: #### C MP ####[facility] Yftccdsfek6144 [place] [address]Dr. Farhat Leal ALP [Catalytic activity/Vol] 60 U/L Normal 46-116 [facility] Comment on above: Performed By: #### C MP ####[facility] Agvjvirbcb1228 [place] [address]Dr. Farhat Leal ALT [Catalytic activity/Vol] 16 U/L Normal 16-63 [facility] Comment on above: Performed By: #### C MP ####[facility] Pwsvprnuns[address] [place], [place] [address]Dr. Farhat Leal Anion gap [Moles/Vol] 9.1 mmol/L Normal [facility] Comment on above: Performed By: #### C MP ####[facility] Azkadoybiw9[address] [place], [place] [address]Dr. Farhat Leal AST [Catalytic activity/Vol] 31 U/L Normal 15-37 [facility] Comment on above: Performed By: #### C MP ####[facility] Ohnvduyecb85[address] [place], [place] [address]Dr. Farhat Leal Bilirubin [Mass/Vol] 0.3 mg/dL Normal 0.2-1.0 [facility] Comment on above: Performed By: #### C MP ####[facility] Ysysdqhmmx4512[address] [place], [place] [address]Dr. Farhat Leal Calcium [Mass/Vol] 8.2 mg/dL Critically low 8.5-10.1 [facility] Comment on above: Performed By: #### C MP ####[facility] Juywjvgjid91[address] [place], [place] [address]Dr. Farhat Leal Chloride [Moles/Vol] 106 mmol/L Normal 98-107 [facility] Comment on above: Performed By: #### C MP ####[facility] Gaofjerkva4139 [place] [phone]. Farhat Leal CO2 [Moles/Vol] 27.0 mmol/L Normal 21.0-32.0 [facility] Comment on above: Performed By: #### C MP ####[facility] Drjuedjltq7490 [place] [id number]. Farhat Leal Creatinine [Mass/Vol] 1.51 mg/dL Critically high 0.70-1.30 [facility] Comment on above: Performed By: #### C MP ####[facility] Tsbdnyimcb12[address] [place] [id number]. Farhat Leal EGFR-AF SYRIAN 55 mL/min/1.73m2 Critically low >=60 [facility] Comment on above: Performed By: #### C MP ####[facility] Inlxmgvite35[address] [place] [address]Dr. Farhat Elvis EGFR-NON AF SYRIAN 45 mL/min/1.73m2 Critically low >=60 [facility] Comment on above: Performed By: #### C MP ####[facility] Zsmsnmaulk6614 [place] [id number]. Farhat Leal Globulin (S) [Mass/Vol] 3.2 g/dL Normal [facility] Comment on above: Performed By: #### C MP ####[facility] Potvrvwpcf87[address] [place] [address]Dr. Farhat Leal Glucose [Mass/Vol] 165 mg/dL Critically high 74-106 [facility] Comment on above: Performed By: #### C MP ####[facility] Yritntlfnr2436 [place] [id number]. Farhat Leal Potassium [Moles/Vol] 4.1 mmol/L Normal 3.5-5.1 [facility] Comment on above: Performed By: #### C MP ####[facility] Epaduxxetd[address] [place], [place] [id number]. Farhat Leal Protein [Mass/Vol] 5.7 g/dL Critically low 6.4-8.2 [facility] Comment on above: Performed By: #### C MP ####[facility] Cawtjejcup[address] [place], [place] [address]Dr. Farhat Leal Sodium [Moles/Vol] 138 mmol/L Normal 136-145 [facility] Comment on above: Performed By: #### C MP ####[facility] Fvwnswggre5[address] [place], [place] [address]Dr. Farhat Leal Urea nitrogen [Mass/Vol] 51.0 mg/dL Critically high 7.0-18.0 [facility] Comment on above: Performed By: #### C MP ####[facility] Qrunbtzval9[address] [place], [place] [address]Dr. Farhat Leal Urea nitrogen/Creatinine [Mass ratio] 33.8 mg/mg Normal [facility] Comment on above: Performed By: #### C MP ####[facility] Bmsfplebxq024[address] [place], [place] [address]Dr. Farhat Leal FK506 (TACROLIMUS) WHOLE BLO ODon 06-15-2022 Tacrolimus (FK506), Blood 16.4 ng/mL Normal 2.0-20.0 [facility] Comment on above: Result Comment: Trou gh (immediately following transplant) 15.0 . Trough (steady state, 2 weeks or more after transplant): 3.0 - 8.0 . Performed by LC-MS/MS technology. Performed By: #### F K506T ####[facility] Zmwcqujrfz[address] [place], [place] [address]Dr. Farhat Leal PROTIMEon 06-15-2022 INR Coag (PPP) [Relative time] 1.64 {INR} Normal [facility] Comment on above: Performed By: #### P T ####[facility] Swjllbrzkb6[address] [place], [place] [address]Dr. Farhat Leal INR GUIDELINES SEE BELOW Normal [facility] Comment on above: Result Comment: MALINA RED INR: 2.0 - 3.0 CONDITIONS NOT LISTED BELOW 2.5 - 3.5 FOR PROSTHETIC HEART VALVE REPLACEMENT 2.5 - 3.5 RECURRENT THROMBOSIS Performed By: #### P T ####[facility] Krijytyphm24[address] [place], [place] [address]Dr. Farhat Leal PT Coag (PPP) [Time] 16.9 s Critically high 9.0-11.6 [facility] Comment on above: Performed By: #### P T ####[facility] Ngnodovpjy38[address] [place], [place] [address]Dr. Farhat Elvis CBC AUTO DIFFon 06-12-2022 BASO # 0.0 103/ul Normal 0.0-0.1 [facility] Comment on above: Performed By: #### C BC ####[facility] Azllccsypx7254[address] [place], [place] [address]Dr. Farhat Leal Basophils/100 WBC (Bld) 0.4 % Normal 0.2-2.0 [facility] Comment on above: Performed By: #### C BC ####[facility] Ajclfcrxss324[address] [place], [place] [address]Dr. Farhat Leal EO # 0.4 103/ul Normal 0.0-0.7 [facility] Comment on above: Performed By: #### C BC ####[facility] Ujmctokayt8537[address] [place], [place] [address]Dr. Farhat Leal Eosinophils/100 WBC (Bld) 5.4 % Normal 0.9-7.0 [facility] Comment on above: Performed By: #### C BC ####[facility] Xqbqedgxyi14[address] [place], [place] [address]Dr. Farhat Leal Erythrocyte distribution width (RBC) [Ratio] 14.7 % Normal 11.0-15.0 [facility] Comment on above: Performed By: #### C BC ####[facility] Umgkfxxcca915[address] [place], [place] [address]Dr. Farhat Leal Hematocrit (Bld) [Volume fraction] 34.8 % Critically low 42.0-54.0 [facility] Comment on above: Performed By: #### C BC ####[facility] Rngkvpcefu7[address] [place], [place] [address]Dr. Farhat Leal Hemoglobin (Bld) [Mass/Vol] 11.7 g/dL Critically low 14.0-18.0 [facility] Comment on above: Performed By: #### C BC ####[facility] Wpxjxvrkqt0803 [place] [id number]. Farhat Leal IG # 0.02 10e3/ul Normal 0.00-0.03 [facility] Comment on above: Performed By: #### C BC ####[facility] Rslinayxvl5654 [place] [id number]. Farhat Elvis IG % 0.3 % Normal 0.0-0.5 [facility] Comment on above: Performed By: #### C BC ####[facility] Fobrmmphtm1302 [place] [address]Dr. Farhat Elvis LYMPH # 2.5 103/ul Normal 1.2-3.8 [facility] Comment on above: Performed By: #### C BC ####[facility] Imahmhkxkv6471 [place] [address]Dr. Farhat Leal Lymphocytes/100 WBC (Bld) 36.8 % Normal 20.5-60.0 [facility] Comment on above: Performed By: #### C BC ####[facility] Rtatfdyijc1264 [place] [address]Dr. Madelynlorri Leal MANUAL DIFF REQ NO Normal [facility] Comment on above: Performed By: #### C BC ####[facility] Vvsfrqfbaq5751 [place] [address]Dr. Farhat Elvis MCH (RBC) [Entitic mass] 30.9 pg Normal 25.9-34.0 [facility] Comment on above: Performed By: #### C BC ####[facility] Twspjbdxrz1506 [place] [address]Dr. Farhat Elvis MCHC (RBC) [Mass/Vol] 33.6 g/dL Normal 29.9-35.2 [facility] Comment on above: Performed By: #### C BC ####[facility] Oocjpujcow7[address] [place] [address]Dr. Farhat Elvis MCV (RBC) [Entitic vol] 91.8 fL Normal 80.0-94.0 [facility] Comment on above: Performed By: #### C BC ####[facility] Mrbzngezco5879 [place] [id number]. Farhat Leal MONO # 0.8 103/ul Normal 0.3-0.8 [facility] Comment on above: Performed By: #### C BC ####[facility] Iwifvyaxyg2283 [place] [address]Dr. Farhat Leal Monocytes/100 WBC (Bld) 11.9 % Normal 1.7-12.0 [facility] Comment on above: Performed By: #### C BC ####[facility] Uxopopedtg3436 [place] [phone]. Farhat Leal NEUT # 3.1 103/ul Normal 1.4-6.5 [facility] Comment on above: Performed By: #### C BC ####[facility] Tkfxaxnfjo2877 [place] [address]Dr. Farhat Leal Neutrophils/100 WBC (Bld) 45.2 % Normal 43.0-75.0 [facility] Comment on above: Performed By: #### C BC ####[facility] Bdgsfgicnz2489 [place] [phone]. Farhat Leal Platelet mean volume (Bld) [Entitic vol] 10.5 fL Normal 9.5-13.5 [facility] Comment on above: Performed By: #### C BC ####[facility] Nnlasvdkbl6628 [place] [phone]. Farhat Leal PLT 175 103/ul Normal 150-450 [facility] Comment on above: Performed By: #### C BC ####[facility] Exbcvmayfh1344 [place] [id number]. Farhat Leal RBC 3.79 106/ul Critically low 4.70-6.10 [facility] Comment on above: Performed By: #### C BC ####[facility] Wseckmllod5093 [place] [address]Dr. Farhat Leal WBC 6.8 103/ul Normal 4.0-11.0 [facility] Comment on above: Performed By: #### C BC ####[facility] Nxsgrbgbyp5052 [place] [phone]. Farhat Leal MAGNESIUMon 06-12-2022 Magnesium [Mass/Vol] 1.6 mg/dL Critically low 1.8-2.4 [facility] Comment on above: Performed By: #### C MP, MG, PHOS ####[facility] Amhfhypeac6965 [place] [address]Dr. Farhat Leal PHOSPHORUSon 06-12-2022 Phosphate [Mass/Vol] 3.8 mg/dL Normal 2.6-4.7 [facility] Comment on above: Performed By: #### C MP, MG, PHOS ####[facility] Xyejgapghl2887 [place] [address]Dr. Farhat Leal PROF 14(COMP METB)on 023 Albumin [Mass/Vol] 2.6 g/dL Critically low 3.4-5.0 [facility] Comment on above: Performed By: #### C MP, MG, PHOS ####[facility] Hqchrrokpy9145 [place] [address]Dr. Farhat Leal Albumin/Globulin [Mass ratio] 0.8 {ratio} Normal [facility] Comment on above: Performed By: #### C MP, MG, PHOS ####[facility] Ndvhtiehda9995 [place] [address]Dr. Farhat Leal ALP [Catalytic activity/Vol] 64 U/L Normal 46-116 [facility] Comment on above: Performed By: #### C MP, MG, PHOS ####[facility] Qsagtawutc3167 [place] [address]Dr. Farhat Leal ALT [Catalytic activity/Vol] 18 U/L Normal 16-63 [facility] Comment on above: Performed By: #### C MP, MG, PHOS ####[facility] Euoxrlfsqn8122 [place] [address]Dr. Farhat Leal Anion gap [Moles/Vol] 12.9 mmol/L Normal [facility] Comment on above: Performed By: #### C MP, MG, PHOS ####[facility] Xpaqbrwtio9078 [place] [address]DrSkylar Leal AST [Catalytic activity/Vol] 18 U/L Normal 15-37 [facility] Comment on above: Performed By: #### C MP, MG, PHOS ####[facility] Ylvnykfuxz0193 [place] [address]Dr. Farhat Leal Bilirubin [Mass/Vol] 0.4 mg/dL Normal 0.2-1.0 [facility] Comment on above: Performed By: #### C MP, MG, PHOS ####[facility] Optptqdedy7727[address] [place], [place] [address]Dr. Farhat Leal Calcium [Mass/Vol] 8.7 mg/dL Normal 8.5-10.1 [facility] Comment on above: Performed By: #### C MP, MG, PHOS ####[facility] Fpejzkfyqu80[address] [place], [place] [address]Dr. Farhat Leal Chloride [Moles/Vol] 105 mmol/L Normal 98-107 [facility] Comment on above: Performed By: #### C MP, MG, PHOS ####[facility] Nbxqezxopv75[address] [place], [place] [address]Dr. Farhat Leal CO2 [Moles/Vol] 27.9 mmol/L Normal 21.0-32.0 [facility] Comment on above: Performed By: #### C MP, MG, PHOS ####[facility] Jmurenktwb9002[address] [place], [place] [address]Dr. Farhat Leal Creatinine [Mass/Vol] 1.53 mg/dL Critically high 0.70-1.30 [facility] Comment on above: Performed By: #### C MP, MG, PHOS ####[facility] Poeaipoqds2025[address] [place], [place] [address]Dr. Farhat Leal EGFR-AF SYRIAN 54 mL/min/1.73m2 Critically low >=60 [facility] Comment on above: Performed By: #### C MP, MG, PHOS ####[facility] Rdjigpqulx3269[address] [place], [place] [address]Dr. Farhat Leal EGFR-NON AF SYRIAN 44 mL/min/1.73m2 Critically low >=60 [facility] Comment on above: Performed By: #### C MP, MG, PHOS ####[facility] Wjpkgoittl2966 [place] [address]Dr. Farhat Leal Globulin (S) [Mass/Vol] 3.4 g/dL Normal [facility] Comment on above: Performed By: #### C MP, MG, PHOS ####[facility] Hfjudaeoun1353 [place] [address]Dr. Farhat Leal Glucose [Mass/Vol] 179 mg/dL Critically high 74-106 [facility] Comment on above: Performed By: #### C MP, MG, PHOS ####[facility] Rujfzxvium33[address] [place], [place] [address]Dr. Farhat Leal Potassium [Moles/Vol] 3.8 mmol/L Normal 3.5-5.1 [facility] Comment on above: Performed By: #### C MP, MG, PHOS ####[facility] Icimgmyttm4674[address] [place], [place] [address]Dr. Farhat Leal Protein [Mass/Vol] 6.0 g/dL Critically low 6.4-8.2 Th [facility] Comment on above: Performed By: #### C MP, MG, PHOS ####[facility] Pizqxmgjyx9[address] [place], [place] [address]Dr. Farhat Leal Sodium [Moles/Vol] 142 mmol/L Normal 136-145 [facility] Comment on above: Performed By: #### C MP, MG, PHOS ####[facility] Fosdgkqdfx675[address] [place], [place] [address]Dr. Farhat Leal Urea nitrogen [Mass/Vol] 56.0 mg/dL Critically high 7.0-18.0 [facility] Comment on above: Performed By: #### C MP, MG, PHOS ####[facility] Erqgktnpft3663[address] [place], [place] [address]Dr. Farhat Leal Urea nitrogen/Creatinine [Mass ratio] 36.6 mg/mg Normal [facility] Comment on above: Performed By: #### C MP, MG, PHOS ####[facility] Jvtcoysxoo2136[address] [place], [place] [address]Dr. Farhat Leal FK506 (TACROLIMUS) WHOLE BLO ODon 06-08-2022 Tacrolimus (FK506), Blood 13.2 ng/mL Normal 2.0-20.0 [facility] Comment on above: Result Comment: Trou gh (immediately following transplant) 15.0 . Trough (steady state, 2 weeks or more after transplant): 3.0 - 8.0 . Performed by LC-MS/MS technology. Performed By: #### F K506T ####[facility] Riacwjltdm9268[address] [place], [place] [address]Dr. Farhat Elvis CBC AUTO DIFFon 06-05-2022 BASO # 0.1 103/ul Normal 0.0-0.1 [facility] Comment on above: Performed By: #### C BC ####[facility] Ggooibipcn9[address] [place], [place] [address]Dr. Farhat Leal Basophils/100 WBC (Bld) 0.8 % Normal 0.2-2.0 [facility] Comment on above: Performed By: #### C BC ####[facility] Jphsmnwjun0514[address] [place], [place] [address]Dr. Madelynlorri Leal EO # 0.3 103/ul Normal 0.0-0.7 [facility] Comment on above: Performed By: #### C BC ####[facility] Hyajlkiiqa8349[address] [place], [place] [address]Dr. Farhat Leal Eosinophils/100 WBC (Bld) 4.7 % Normal 0.9-7.0 [facility] Comment on above: Performed By: #### C BC ####[facility] Vluihtfked5924[address] [place], [place] [address]Dr. Farhat Leal Erythrocyte distribution width (RBC) [Ratio] 15.1 % Critically high 11.0-15.0 [facility] Comment on above: Performed By: #### C BC ####[facility] Mtwbdnldbp227[address] [place], [place] [address]Dr. Farhat Leal Hematocrit (Bld) [Volume fraction] 35.5 % Critically low 42.0-54.0 [facility] Comment on above: Performed By: #### C BC ####[facility] Azfplslatb9946 [place] [id number]. Farhat Leal Hemoglobin (Bld) [Mass/Vol] 11.7 g/dL Critically low 14.0-18.0 [facility] Comment on above: Performed By: #### C BC ####[facility] Rjugdzmwdl4361 [place] [address]Dr. Farhat Leal IG # 0.01 10e3/ul Normal 0.00-0.03 [facility] Comment on above: Performed By: #### C BC ####[facility] Xhcgacxwnn689[address] [place], [place] [address]Dr. Farhat Leal IG % 0.2 % Normal 0.0-0.5 [facility] Comment on above: Performed By: #### C BC ####[facility] Sbastqkjdv385[address] [place], [place] [address]Dr. Farhat Leal LYMPH # 2.1 103/ul Normal 1.2-3.8 [facility] Comment on above: Performed By: #### C BC ####[facility] Fnqdyjoodl9586[address] [place], [place] [address]Dr. Madelynlorri Leal Lymphocytes/100 WBC (Bld) 34.5 % Normal 20.5-60.0 [facility] Comment on above: Performed By: #### C BC ####[facility] Xcxdvvdefo100[address] [place], [place] [address]Dr. Farhat Leal MANUAL DIFF REQ NO Normal [facility] Comment on above: Performed By: #### C BC ####[facility] Bndmainuws956[address] [place], [place] [address]Dr. Farhat Leal MCH (RBC) [Entitic mass] 30.6 pg Normal 25.9-34.0 [facility] Comment on above: Performed By: #### C BC ####[facility] Wapvlgzgwz288[address] [place], [place] [address]Dr. Farhat Leal MCHC (RBC) [Mass/Vol] 33.0 g/dL Normal 29.9-35.2 [facility] Comment on above: Performed By: #### C BC ####[facility] Rgfwqreyxs8527 [place] [phone]. Farhat Leal MCV (RBC) [Entitic vol] 92.9 fL Normal 80.0-94.0 [facility] Comment on above: Performed By: #### C BC ####[facility] Yfgiqzcluy4042 [place] [address]Dr. Farhat Leal MONO # 0.7 103/ul Normal 0.3-0.8 [facility] Comment on above: Performed By: #### C BC ####[facility] Cfenqritga3925 [place] [address]Dr. Farhat Leal Monocytes/100 WBC (Bld) 11.4 % Normal 1.7-12.0 [facility] Comment on above: Performed By: #### C BC ####[facility] Ppixsxzwqw9573 [place] [address]Dr. Farhat Leal NEUT # 2.9 103/ul Normal 1.4-6.5 [facility] Comment on above: Performed By: #### C BC ####[facility] Mpmtukjyae4600 [place] [address]Dr. Farhat Leal Neutrophils/100 WBC (Bld) 48.4 % Normal 43.0-75.0 [facility] Comment on above: Performed By: #### C BC ####[facility] Mgrietniwl6038 [place] [address]Dr. Farhat Leal Platelet mean volume (Bld) [Entitic vol] 10.7 fL Normal 9.5-13.5 [facility] Comment on above: Performed By: #### C BC ####[facility] Mlkyqrowjv1552 [place] [phone]. Farhat Leal PLT 185 103/ul Normal 150-450 [facility] Comment on above: Performed By: #### C BC ####[facility] Wtnflhjviy9891 [place] [phone]. Farhat Leal RBC 3.82 106/ul Critically low 4.70-6.10 [facility] Comment on above: Performed By: #### C BC ####[facility] Knkwygaksp3810 [place] [phone]. Farhat Leal WBC 6.0 103/ul Normal 4.0-11.0 [facility] Comment on above: Performed By: #### C BC ####[facility] Jdabmxxydx1391 [place] [address]Dr. Madelynolrri Leal MAGNESIUMon 06-05-2022 Magnesium [Mass/Vol] 1.9 mg/dL Normal 1.8-2.4 [facility] Comment on above: Performed By: #### P HOS, MG ####[facility] Xcxmhtrxxf6272 [place] [address]Dr. Farhat Leal PHOSPHORUSon 06-05-2022 Phosphate [Mass/Vol] 4.4 mg/dL Normal 2.6-4.7 [facility] Comment on above: Performed By: #### P HOS, MG ####[facility] Onfvvjdadr5939 [place] [address]Dr. Farhat Leal PROTIMEon 06-05-2022 INR Coag (PPP) [Relative time] 2.16 {INR} Normal [facility] Comment on above: Performed By: #### P T ####[facility] Atryjcaxxa4247 [place] [address]Dr. Farhat Leal INR GUIDELINES SEE BELOW Normal [facility] Comment on above: Result Comment: MALINA RED INR: 2.0 - 3.0 CONDITIONS NOT LISTED BELOW 2.5 - 3.5 FOR PROSTHETIC HEART VALVE REPLACEMENT 2.5 - 3.5 RECURRENT THROMBOSIS Performed By: #### P T ####[facility] Pkfltcztsg2683 [place] [address]Dr. Farhat Leal PT Coag (PPP) [Time] 21.9 s Critically high 9.0-11.6 [facility] Comment on above: Performed By: #### P T ####[facility] Opygridmrm60[address] [place], [place] [address]Dr. Farhat Leal FK506 (TACROLIMUS) WHOLE BLO ODon 06-01-2022 Tacrolimus (FK506), Blood 26.4 ng/mL Invalid Interpretation Code 2.0-20.0 [facility] Comment on above: Result Comment: Trou gh (immediately following transplant) 15.0 . Trough (steady state, 2 weeks or more after transplant): 3.0 - 8.0 . Performed by LC-MS/MS technology.Patient drug level exceeds published reference range. Evaluateclinically for signs of potential toxicity. Performed By: #### F K506T ####[facility] Rwnenogtfo9954 [place] [address]Dr. Farhat Leal CBC AUTO DIFFon 05-29-2022 BASO # 0.0 103/ul Normal 0.0-0.1 [facility] Comment on above: Performed By: #### C BC ####[facility] Axmpnvrrua0465[address] [place], [place] [address]Dr. Farhat Leal Basophils/100 WBC (Bld) 0.6 % Normal 0.2-2.0 [facility] Comment on above: Performed By: #### C BC ####[facility] Gdirzxnayb7425[address] [place], [place] [address]Dr. Farhat Leal EO # 0.3 103/ul Normal 0.0-0.7 [facility] Comment on above: Performed By: #### C BC ####[facility] Ibxvegcqdd24[address] [place], [place] [address]Dr. Farhat Lael Eosinophils/100 WBC (Bld) 4.7 % Normal 0.9-7.0 [facility] Comment on above: Performed By: #### C BC ####[facility] Rkzebbnxyy393[address] [place], [place] [address]Dr. Farhat Leal Erythrocyte distribution width (RBC) [Ratio] 15.3 % Critically high 11.0-15.0 [facility] Comment on above: Performed By: #### C BC ####[facility] Susazdhfkh0826[address] [place], [place] [address]Dr. Farhat Leal Hematocrit (Bld) [Volume fraction] 36.6 % Critically low 42.0-54.0 [facility] Comment on above: Performed By: #### C BC ####[facility] Permoimkfi3414[address] [place], [place] [address]Dr. Faraht Leal Hemoglobin (Bld) [Mass/Vol] 12.3 g/dL Critically low 14.0-18.0 [facility] Comment on above: Performed By: #### C BC ####[facility] Rxuzujmhsx3987 [place] [address]DrSkylar Leal IG # 0.02 10e3/ul Normal 0.00-0.03 [facility] Comment on above: Performed By: #### C BC ####[facility] Jooifabzel4625 [place] [address]DrSkylar Leal IG % 0.3 % Normal 0.0-0.5 [facility] Comment on above: Performed By: #### C BC ####[facility] Sdbjvqcwuh0427 [place] [address]DrSkylar Leal LYMPH # 2.8 103/ul Normal 1.2-3.8 [facility] Comment on above: Performed By: #### C BC ####[facility] Rqfxcpxoep8177 [place] [address]DrSkylar Leal Lymphocytes/100 WBC (Bld) 44.4 % Normal 20.5-60.0 [facility] Comment on above: Performed By: #### C BC ####[facility] Bxcbainzps0146 [place] [address]DrSkylar Leal MANUAL DIFF REQ NO Normal [facility] Comment on above: Performed By: #### C BC ####[facility] Ghbgrghboz[address] [place] [address]DrSkylar Leal MCH (RBC) [Entitic mass] 30.4 pg Normal 25.9-34.0 [facility] Comment on above: Performed By: #### C BC ####[facility] Mlzekffgxf77[address] [place] [id number] Leal MCHC (RBC) [Mass/Vol] 33.6 g/dL Normal 29.9-35.2 [facility] Comment on above: Performed By: #### C BC ####[facility] Uriemwpykt6462 [place] [phone] Leal MCV (RBC) [Entitic vol] 90.4 fL Normal 80.0-94.0 [facility] Comment on above: Performed By: #### C BC ####[facility] Qwpjgshqol5[address] [place] [phone]. Farhat Leal MONO # 0.7 103/ul Normal 0.3-0.8 [facility] Comment on above: Performed By: #### C BC ####[facility] Jjdadbotlb4684 [place] [phone]. Farhat Leal Monocytes/100 WBC (Bld) 10.7 % Normal 1.7-12.0 [facility] Comment on above: Performed By: #### C BC ####[facility] Wsypnlxxlp2[address] [place] [address]Dr. Farhat Leal NEUT # 2.5 103/ul Normal 1.4-6.5 [facility] Comment on above: Performed By: #### C BC ####[facility] Rqhiaqdumb7[address] [place] [address]Dr. Farhat Leal Neutrophils/100 WBC (Bld) 39.3 % Critically low 43.0-75.0 [facility] Comment on above: Performed By: #### C BC ####[facility] Snhemjmzhp66[address] [place] [address]Dr. Farhat Leal Platelet mean volume (Bld) [Entitic vol] 10.5 fL Normal 9.5-13.5 [facility] Comment on above: Performed By: #### C BC ####[facility] Ocrpoomsvv2[address] [place] [address]Dr. Farhat Leal PLT 190 103/ul Normal 150-450 [facility] Comment on above: Performed By: #### C BC ####[facility] Swauknjcrt[address] [place] [phone]. Farhat Leal RBC 4.05 106/ul Critically low 4.70-6.10 The [facility] Comment on above: Performed By: #### C BC ####[facility] Zpskrlojlq8784 [place] [phone]. Farhat Leal WBC 6.4 103/ul Normal 4.0-11.0 [facility] Comment on above: Performed By: #### C BC ####[facility] Iwuyoxaibn5[address] [place] [address]Dr. Farhat Leal PROF 14(COMP METB)on 023 Albumin [Mass/Vol] 2.5 g/dL Critically low 3.4-5.0 [facility] Comment on above: Performed By: #### C MP ####[facility] Fieizfcnqi[address] [place] [address]Dr. Farhat Leal Albumin/Globulin [Mass ratio] 0.8 {ratio} Normal [facility] Comment on above: Performed By: #### C MP ####[facility] Zdjexxtwcz8096 [place] [address]Dr. Farhat Leal ALP [Catalytic activity/Vol] 61 U/L Normal 46-116 [facility] Comment on above: Performed By: #### C MP ####[facility] Pvwdfwddgr[address] [place], [place] [address]Dr. Farhat Leal ALT [Catalytic activity/Vol] 16 U/L Normal 16-63 [facility] Comment on above: Performed By: #### C MP ####[facility] Fmlwdfzkle[address] [place], [place] [address]Dr. Farhat Leal Anion gap [Moles/Vol] 12.3 mmol/L Normal [facility] Comment on above: Performed By: #### C MP ####[facility] Vvheopilsq5[address] [place], [place] [address]Dr. Farhat Leal AST [Catalytic activity/Vol] 18 U/L Normal 15-37 [facility] Comment on above: Performed By: #### C MP ####[facility] Hfthtwpchy7[address] [place], [place] [address]Dr. Farhat Leal Bilirubin [Mass/Vol] 0.5 mg/dL Normal 0.2-1.0 [facility] Comment on above: Performed By: #### C MP ####[facility] Niizstrxmo6933[address] [place], [place] [address]Dr. Farhat Leal Calcium [Mass/Vol] 8.6 mg/dL Normal 8.5-10.1 [facility] Comment on above: Performed By: #### C MP ####[facility] Agbbznjnuz32[address] [place] [phone]. Farhat Leal Chloride [Moles/Vol] 105 mmol/L Normal 98-107 [facility] Comment on above: Performed By: #### C MP ####[facility] Eijeqdzefb7864 [place] [phone]. Farhat Leal CO2 [Moles/Vol] 28.6 mmol/L Normal 21.0-32.0 [facility] Comment on above: Performed By: #### C MP ####[facility] Slcglmpdwg3405 [place] [address]Dr. Farhat Leal Creatinine [Mass/Vol] 1.47 mg/dL Critically high 0.70-1.30 [facility] Comment on above: Performed By: #### C MP ####[facility] Yzzqvbxtlw[address] [place], [place] [address]Dr. Farhat Elvis EGFR-AF SYRIAN 56 mL/min/1.73m2 Critically low >=60 [facility] Comment on above: Performed By: #### C MP ####[facility] Rzpqepslcm2868 [place] [address]Dr. Farhat Leal EGFR-NON AF SYRIAN 46 mL/min/1.73m2 Critically low >=60 [facility] Comment on above: Performed By: #### C MP ####[facility] Ayscqkickk8[address] [place] [address]Dr. Farhat Elvis Globulin (S) [Mass/Vol] 3.3 g/dL Normal [facility] Comment on above: Performed By: #### C MP ####[facility] Fttxdjmxet8277 [place] [phone]. Farhat Elvis Glucose [Mass/Vol] 164 mg/dL Critically high 74-106 [facility] Comment on above: Performed By: #### C MP ####[facility] Wswphogmlk3185 [place] [address]Dr. Farhat Elvis Potassium [Moles/Vol] 3.9 mmol/L Normal 3.5-5.1 [facility] Comment on above: Performed By: #### C MP ####[facility] Licpnikaed2693 [place] [address]Dr. Farhat Leal Protein [Mass/Vol] 5.8 g/dL Critically low 6.4-8.2 [facility] Comment on above: Performed By: #### C MP ####[facility] Enzlcwakcu5[address] [place] [address]Dr. Farhat Leal Sodium [Moles/Vol] 142 mmol/L Normal 136-145 [facility] Comment on above: Performed By: #### C MP ####[facility] Nubjbdbhvh6[address] [place] [address]Dr. Farhat Leal Urea nitrogen [Mass/Vol] 53.0 mg/dL Critically high 7.0-18.0 [facility] Comment on above: Performed By: #### C MP ####[facility] Qiiyfgwxmo664[address] [place], [place] [address]Dr. Farhat Leal Urea nitrogen/Creatinine [Mass ratio] 36.1 mg/mg Normal [facility] Comment on above: Performed By: #### C MP ####[facility] Quukvzfugk[address] [place], [place] [address]Dr. Farhat Leal PROTIMEon 05-29-2022 INR Coag (PPP) [Relative time] 2.41 {INR} Normal [facility] Comment on above: Performed By: #### P T ####[facility] Fxzbvuhosa40[address] [place], [place] [address]Dr. Farhat Leal INR GUIDELINES SEE BELOW Normal [facility] Comment on above: Result Comment: MALINA RED INR: 2.0 - 3.0 CONDITIONS NOT LISTED BELOW 2.5 - 3.5 FOR PROSTHETIC HEART VALVE REPLACEMENT 2.5 - 3.5 RECURRENT THROMBOSIS Performed By: #### P T ####[facility] Zzggjnegjl[address] [place], [place] [address]Dr. Farhat Leal PT Coag (PPP) [Time] 24.3 s Critically high 9.0-11.6 [facility] Comment on above: Performed By: #### P T ####[facility] Rndmvbznzf12[address] [place] [address]Dr. Farhat Leal FK506 (TACROLIMUS) WHOLE BLO ODon 05-25-2022 Tacrolimus (FK506), Blood 5.1 ng/mL Normal 2.0-20.0 [facility] Comment on above: Result Comment: Trou gh (immediately following transplant) 15.0 . Trough (steady state, 2 weeks or more after transplant): 3.0 - 8.0 . Performed by LC-MS/MS technology. Performed By: #### F K506T ####[facility] Ousyneiisf[address] [place], [place] [address]Dr. Farhat Leal CBC AUTO DIFFon 05-22-2022 BASO # 0.0 103/ul Normal 0.0-0.1 [facility] Comment on above: Performed By: #### C BC ####[facility] Cbtgghxdai9[address] [place], [place] [address]Dr. Farhat Leal Basophils/100 WBC (Bld) 0.5 % Normal 0.2-2.0 [facility] Comment on above: Performed By: #### C BC ####[facility] Wkjwsrxjrn9[address] [place], [place] [address]Dr. Farhat Leal EO # 0.2 103/ul Normal 0.0-0.7 [facility] Comment on above: Performed By: #### C BC ####[facility] Icxfgbpidp6[address] [place], [place] [address]Dr. Farhat Leal Eosinophils/100 WBC (Bld) 4.0 % Normal 0.9-7.0 [facility] Comment on above: Performed By: #### C BC ####[facility] Ckfxrmfcxx37[address] [place], [place] [address]Dr. Farhat Leal Erythrocyte distribution width (RBC) [Ratio] 15.5 % Critically high 11.0-15.0 [facility] Comment on above: Performed By: #### C BC ####[facility] Psuwqgcmvr17[address] [place], [place] [address]Dr. Farhat Leal Hematocrit (Bld) [Volume fraction] 34.1 % Critically low 42.0-54.0 [facility] Comment on above: Performed By: #### C BC ####[facility] Mlsggqaikx4[address] [place] [phone]. Farhat Leal Hemoglobin (Bld) [Mass/Vol] 11.3 g/dL Critically low 14.0-18.0 [facility] Comment on above: Performed By: #### C BC ####[facility] Gyxmadsevm5084 [place] [phone]. Farhat Leal IG # 0.03 10e3/ul Normal 0.00-0.03 [facility] Comment on above: Performed By: #### C BC ####[facility] Xmxnxgnlpq3685 [place] [address]Dr. Farhat Leal IG % 0.5 % Normal 0.0-0.5 [facility] Comment on above: Performed By: #### C BC ####[facility] Nogxtwsfvh3691 [place] [address]Dr. Farhat Leal LYMPH # 2.1 103/ul Normal 1.2-3.8 [facility] Comment on above: Performed By: #### C BC ####[facility] Eaqmiqoozv3372 [place] [address]Dr. Farhat Leal Lymphocytes/100 WBC (Bld) 34.6 % Normal 20.5-60.0 [facility] Comment on above: Performed By: #### C BC ####[facility] Xagjdymxwz3451 [place] [phone]. Farhat Leal MANUAL DIFF REQ NO Normal The [facility] Comment on above: Performed By: #### C BC ####[facility] Lrllxsrawc6771 [place] [phone]. Farhat Leal MCH (RBC) [Entitic mass] 30.3 pg Normal 25.9-34.0 [facility] Comment on above: Performed By: #### C BC ####[facility] Asdpnnwiwg2163 [place] [address]Dr. Farhat Leal MCHC (RBC) [Mass/Vol] 33.1 g/dL Normal 29.9-35.2 [facility] Comment on above: Performed By: #### C BC ####[facility] Ciqalkmmuu4301 [place] [phone]. Farhat Leal MCV (RBC) [Entitic vol] 91.4 fL Normal 80.0-94.0 [facility] Comment on above: Performed By: #### C BC ####[facility] Vhikvgzgfs2960 [place] [address]Dr. Farhat Leal MONO # 0.7 103/ul Normal 0.3-0.8 [facility] Comment on above: Performed By: #### C BC ####[facility] Tmrfhwtxel2255 [place] [phone]. aFrhat Leal Monocytes/100 WBC (Bld) 11.6 % Normal 1.7-12.0 [facility] Comment on above: Performed By: #### C BC ####[facility] Hefqxrnyqb[address] [place], [place] [address]Dr. Farhat Leal NEUT # 2.9 103/ul Normal 1.4-6.5 [facility] Comment on above: Performed By: #### C BC ####[facility] [address]crmq[address] [place], [place] [address]Dr. Farhat Leal Neutrophils/100 WBC (Bld) 48.8 % Normal 43.0-75.0 [facility] Comment on above: Performed By: #### C BC ####[facility] Zijllugjsg477[address] [place], [place] [address]Dr. Farhat Leal Platelet mean volume (Bld) [Entitic vol] 10.9 fL Normal 9.5-13.5 [facility] Comment on above: Performed By: #### C BC ####[facility] Ienqxmtxge[address] [place], [place] [id number]. Farhat Leal PLT 186 103/ul Normal 150-450 [facility] Comment on above: Performed By: #### C BC ####[facility] Pzbzb[address]lbs[address] [place], [place] [address]Dr. Farhat Leal RBC 3.73 106/ul Critically low 4.70-6.10 The [facility] Comment on above: Performed By: #### C BC ####[facility] Wgzcallovc5418 [place] [address]Dr. Farhat Leal WBC 6.0 103/ul Normal 4.0-11.0 [facility] Comment on above: Performed By: #### C BC ####[facility] Rpnviomflz8011 [place] [address]Dr. Farhat Leal PROF 14(COMP METB)on 023 Albumin [Mass/Vol] 2.7 g/dL Critically low 3.4-5.0 Th [facility] Comment on above: Performed By: #### C MP ####[facility] Ulxwwreirn3485 [place] [address]Dr. Farhat Leal Albumin/Globulin [Mass ratio] 0.8 {ratio} Normal [facility] Comment on above: Performed By: #### C MP ####[facility] Irvveojmpz8416 [place] [address]Dr. Farhat Leal ALP [Catalytic activity/Vol] 60 U/L Normal 46-116 [facility] Comment on above: Performed By: #### C MP ####[facility] Isbyqwiabe2667 [place] [address]Dr. Farhat Leal ALT [Catalytic activity/Vol] 17 U/L Normal 16-63 [facility] Comment on above: Performed By: #### C MP ####[facility] Rrerrbplex3604 [place] [address]Dr. Farhat Leal Anion gap [Moles/Vol] 9.6 mmol/L Normal [facility] Comment on above: Performed By: #### C MP ####[facility] Xywtdsdnyf2015 [place] [address]Dr. Farhat Leal AST [Catalytic activity/Vol] 14 U/L Critically low 15-37 [facility] Comment on above: Performed By: #### C MP ####[facility] Oekcrpvzxd8954 [place] [address]Dr. Farhat Leal Bilirubin [Mass/Vol] 0.5 mg/dL Normal 0.2-1.0 [facility] Comment on above: Performed By: #### C MP ####[facility] Cdsotzecmu4902 [place] [phone]. Farhat Leal Calcium [Mass/Vol] 8.4 mg/dL Critically low 8.5-10.1 [facility] Comment on above: Performed By: #### C MP ####[facility] Qpqiroowjt6192 [place] [phone]. Farhat Leal Chloride [Moles/Vol] 104 mmol/L Normal 98-107 [facility] Comment on above: Performed By: #### C MP ####[facility] Myeppkogvj4964 [place] [address]Dr. Farhat Leal CO2 [Moles/Vol] 27.2 mmol/L Normal 21.0-32.0 [facility] Comment on above: Performed By: #### C MP ####[facility] Cxwiqjsmzn9[address] [place], [place] [address]Dr. Farhat Leal Creatinine [Mass/Vol] 1.24 mg/dL Normal 0.70-1.30 [facility] Comment on above: Performed By: #### C MP ####[facility] Mdytmfbjsv9[address] [place], [place] [address]Dr. Farhat Leal EGFR-AF SYRIAN >60 Normal >=60 [facility] Comment on above: Performed By: #### C MP ####[facility] Inoelzsjej47[address] [place], [place] [address]Dr. Farhat Elvis EGFR-NON AF SYRIAN 57 mL/min/1.73m2 Critically low >=60 [facility] Comment on above: Performed By: #### C MP ####[facility] Dzcuccqoss27[address] [place], [place] [address]Dr. Farhat Leal Globulin (S) [Mass/Vol] 3.3 g/dL Normal [facility] Comment on above: Performed By: #### C MP ####[facility] Xuijoatnjg3717 [place] [address]Dr. Farhat Leal Glucose [Mass/Vol] 275 mg/dL Critically high 74-106 T [facility] Comment on above: Performed By: #### C MP ####[facility] Rxgflptqiy0638 [place] [address]Dr. Farhat Leal Potassium [Moles/Vol] 3.8 mmol/L Normal 3.5-5.1 [facility] Comment on above: Performed By: #### C MP ####[facility] Erhrvqngzi8389 [place] [address]Dr. Farhat Leal Protein [Mass/Vol] 6.0 g/dL Critically low 6.4-8.2 Th [facility] Comment on above: Performed By: #### C MP ####[facility] Fkpjgwmuml2807 [place] [address]Dr. Farhat Leal Sodium [Moles/Vol] 137 mmol/L Normal 136-145 [facility] Comment on above: Performed By: #### C MP ####[facility] Hltrcjqele9199[address] [place], [place] [address]Dr. aFrhat Leal Urea nitrogen [Mass/Vol] 54.0 mg/dL Critically high 7.0-18.0 [facility] Comment on above: Performed By: #### C MP ####[facility] Sqcuynmubc3125[address] [place], [place] [address]Dr. Farhat Leal Urea nitrogen/Creatinine [Mass ratio] 43.5 mg/mg Normal [facility] Comment on above: Performed By: #### C MP ####[facility] Baigkklara64[address] [place], [place] [address]Dr. Farhat Leal PROTIMEon 05-22-2022 INR Coag (PPP) [Relative time] 2.27 {INR} Normal [facility] Comment on above: Performed By: #### P T ####[facility] Maxutumbme48[address] [place], [place] [address]Dr. Farhat Leal INR GUIDELINES SEE BELOW Normal [facility] Comment on above: Result Comment: MALINA RED INR: 2.0 - 3.0 CONDITIONS NOT LISTED BELOW 2.5 - 3.5 FOR PROSTHETIC HEART VALVE REPLACEMENT 2.5 - 3.5 RECURRENT THROMBOSIS Performed By: #### P T ####[facility] Dihhipyiej428[address] [place], [place] [address]Dr. Farhat Leal PT Coag (PPP) [Time] 23.0 s Critically high 9.0-11.6 [facility] Comment on above: Performed By: #### P T ####[facility] Kfkltxxrdi7[address] [place], [place] [address]DrSkylar Leal FK506 (TACROLIMUS) WHOLE BLO ODon 05-19-2022 Tacrolimus (FK506), Blood 7.8 ng/mL Normal 2.0-20.0 [facility] Comment on above: Result Comment: Trou gh (immediately following transplant) 15.0 . Trough (steady state, 2 weeks or more after transplant): 3.0 - 8.0 . Performed by LC-MS/MS technology. Performed By: #### F K506T ####[facility] Chofcjihww0539[address] [place], [place] [address]DrSkylar Leal CBC AUTO DIFFon 05-15-2022 BASO # 0.0 103/ul Normal 0.0-0.1 [facility] Comment on above: Performed By: #### C BC ####[facility] Ptjyuvehdz23[address] [place], [place] [address]DrSkylar Leal Basophils/100 WBC (Bld) 0.4 % Normal 0.2-2.0 [facility] Comment on above: Performed By: #### C BC ####[facility] Pmrzufvuar158[address] [place], [place] [address]DrSkylar Leal EO # 0.2 103/ul Normal 0.0-0.7 [facility] Comment on above: Performed By: #### C BC ####[facility] Nyxhgczhfs14[address] [place], [place] [address]DrSkylar Leal Eosinophils/100 WBC (Bld) 3.0 % Normal 0.9-7.0 [facility] Comment on above: Performed By: #### C BC ####[facility] Wdtlihazjg25[address] [place], [place] [address]DrSkylar Leal Erythrocyte distribution width (RBC) [Ratio] 15.7 % Critically high 11.0-15.0 [facility] Comment on above: Performed By: #### C BC ####[facility] Askmrcgmrm6452[address] [place], [place] [address]Dr. Yilorri Leal Hematocrit (Bld) [Volume fraction] 36.8 % Critically low 42.0-54.0 [facility] Comment on above: Performed By: #### C BC ####[facility] Hoxteckdfd33[address] [place] [address]Dr. Farhat Leal Hemoglobin (Bld) [Mass/Vol] 12.4 g/dL Critically low 14.0-18.0 [facility] Comment on above: Performed By: #### C BC ####[facility] Twavuredtv2761 [place] [address]Dr. Farhat Leal IG # 0.01 10e3/ul Normal 0.00-0.03 [facility] Comment on above: Performed By: #### C BC ####[facility] Ynajramcji2347 [place] [address]Dr. Farhat Leal IG % 0.1 % Normal 0.0-0.5 [facility] Comment on above: Performed By: #### C BC ####[facility] Ajieolkrom74[address] [place], [place] [address]Dr. Farhat Leal LYMPH # 2.4 103/ul Normal 1.2-3.8 [facility] Comment on above: Performed By: #### C BC ####[facility] Ydzmutneeb17[address] [place], [place] [address]Dr. Farhat Leal Lymphocytes/100 WBC (Bld) 35.6 % Normal 20.5-60.0 [facility] Comment on above: Performed By: #### C BC ####[facility] Qmwxgwpvhe56[address] [place], [place] [address]Dr. Farhat Leal MANUAL DIFF REQ NO Normal The [facility] Comment on above: Performed By: #### C BC ####[facility] Pganrgamjp8675[address] [place], [place] [address]Dr. Farhat Leal MCH (RBC) [Entitic mass] 30.1 pg Normal 25.9-34.0 [facility] Comment on above: Performed By: #### C BC ####[facility] Lcidzsujen3926[address] [place], [place] [address]Dr. Farhat Leal MCHC (RBC) [Mass/Vol] 33.7 g/dL Normal 29.9-35.2 [facility] Comment on above: Performed By: #### C BC ####[facility] Eeuvmamwck1355 [place] [address]DrSkylar Leal MCV (RBC) [Entitic vol] 89.3 fL Normal 80.0-94.0 [facility] Comment on above: Performed By: #### C BC ####[facility] Kajnpzvelc8[address] [place], [place] [address]DrSkylar Leal MONO # 0.7 103/ul Normal 0.3-0.8 [facility] Comment on above: Performed By: #### C BC ####[facility] Jtajkpcjkc[address] [place], [place] [address]DrSkylar Leal Monocytes/100 WBC (Bld) 10.8 % Normal 1.7-12.0 [facility] Comment on above: Performed By: #### C BC ####[facility] Vecvgnwahh[address] [place], [place] [address]DrSkylar Leal NEUT # 3.4 103/ul Normal 1.4-6.5 [facility] Comment on above: Performed By: #### C BC ####[facility] Jsgfcyxcny39[address] [place], [place] [address]DrSkylar Leal Neutrophils/100 WBC (Bld) 50.1 % Normal 43.0-75.0 [facility] Comment on above: Performed By: #### C BC ####[facility] Pspskcfvom56[address] [place], [place] [address]DrSkylar Leal Platelet mean volume (Bld) [Entitic vol] 10.2 fL Normal 9.5-13.5 [facility] Comment on above: Performed By: #### C BC ####[facility] [address]fapc[address] [place], [place] [address]DrSkylar Leal PLT 190 103/ul Normal 150-450 [facility] Comment on above: Performed By: #### C BC ####[facility] [address]pszgkfvio[address] [place], [place] [address]DrSkylar Leal RBC 4.12 106/ul Critically low 4.70-6.10 [facility] Comment on above: Performed By: #### C BC ####[facility] [address] [place] [address]Dr. Farhat Leal WBC 6.8 103/ul Normal 4.0-11.0 [facility] Comment on above: Performed By: #### C BC ####[facility] [address]ts[address] [place] [address]DrSkylar Leal PROF 14(COMP METB)on 023 Albumin [Mass/Vol] 2.8 g/dL Critically low 3.4-5.0 [facility] Comment on above: Performed By: #### C MP ####[facility] [address] [place], [place] [address]DrSkylar Leal Albumin/Globulin [Mass ratio] 0.9 {ratio} Normal [facility] Comment on above: Performed By: #### C MP ####[facility] Sfxjjbsjbn0[address] [place], [place] [address]Dr. Farhat Leal ALP [Catalytic activity/Vol] 66 U/L Normal 46-116 [facility] Comment on above: Performed By: #### C MP ####[facility] Xuqlghncje0012[address] [place], [place] [address]DrSkylar Leal ALT [Catalytic activity/Vol] 15 U/L Critically low 16-63 [facility] Comment on above: Performed By: #### C MP ####[facility] Oktszcpleg13[address] [place], [place] [address]DrSkylar Leal Anion gap [Moles/Vol] 11.1 mmol/L Normal Th [facility] Comment on above: Performed By: #### C MP ####[facility] Nhujaj[address]sm[address] [place], [place] [address]DrSkylar Leal AST [Catalytic activity/Vol] 14 U/L Critically low 15-37 [facility] Comment on above: Performed By: #### C MP ####[facility] Gqsdkmkqer[address] [place], [place] [address]DrSkylar Leal Bilirubin [Mass/Vol] 0.8 mg/dL Normal 0.2-1.0 [facility] Comment on above: Performed By: #### C MP ####[facility] Bdyrxikjfi0478[address] [place], [place] [address]Dr. Farhat Leal Calcium [Mass/Vol] 8.9 mg/dL Normal 8.5-10.1 [facility] Comment on above: Performed By: #### C MP ####[facility] Liiauswpqt260[address] [place], [place] [address]Dr. Farhat Leal Chloride [Moles/Vol] 101 mmol/L Normal 98-107 [facility] Comment on above: Performed By: #### C MP ####[facility] Vebkgzfejy2986[address] [place], [place] [address]Dr. Farhat Leal CO2 [Moles/Vol] 28.2 mmol/L Normal 21.0-32.0 [facility] Comment on above: Performed By: #### C MP ####[facility] Hfutqlzexy9[address] [place], [place] [address]Dr. Farhat Elvis Creatinine [Mass/Vol] 1.23 mg/dL Normal 0.70-1.30 [facility] Comment on above: Performed By: #### C MP ####[facility] Zondiyjssy[address] [place], [place] [address]Dr. Farhat Elvis EGFR-AF SYRIAN >60 Normal >=60 [facility] Comment on above: Performed By: #### C MP ####[facility] Zqzbpeldku85[address] [place], [place] [address]Dr. Madelynlorri Elvis EGFR-NON AF SYRIAN 57 mL/min/1.73m2 Critically low >=60 [facility] Comment on above: Performed By: #### C MP ####[facility] Wvkaicdycj4[address] [place], [place] [address]Dr. Farhat Leal Globulin (S) [Mass/Vol] 3.2 g/dL Normal [facility] Comment on above: Performed By: #### C MP ####[facility] Wlwtyelswu307[address] [place], [place] [address]Dr. Farhat Leal Glucose [Mass/Vol] 333 mg/dL Critically high 74-106 T [facility] Comment on above: Performed By: #### C MP ####[facility] [address] [place] [address]Dr. Farhat Leal Potassium [Moles/Vol] 4.3 mmol/L Normal 3.5-5.1 [facility] Comment on above: Performed By: #### C MP ####[facility] [address]ys[address]vza[address] [place] [address]Dr. Farhat Leal Protein [Mass/Vol] 6.0 g/dL Critically low 6.4-8.2 Th [facility] Comment on above: Performed By: #### C MP ####[facility] Mvzgfpgvwd29[address] [place], [place] [address]Dr. Farhat Leal Sodium [Moles/Vol] 136 mmol/L Normal 136-145 [facility] Comment on above: Performed By: #### C MP ####[facility] Dufjctvjdr[address] [place], [place] [address]Dr. Farhat Leal Urea nitrogen [Mass/Vol] 58.0 mg/dL Critically high 7.0-18.0 [facility] Comment on above: Performed By: #### C MP ####[facility] Jkfpbumaku8823[address] [place], [place] [address]Dr. Farhat Leal Urea nitrogen/Creatinine [Mass ratio] 47.2 mg/mg Normal [facility] Comment on above: Performed By: #### C MP ####[facility] Pvzwinknaz7[address] [place], [place] [address]Dr. Farhat Leal PROTIMEon 05-13-2022 INR Coag (PPP) [Relative time] 3.51 {INR} Normal [facility] Comment on above: Performed By: #### P T ####[facility] Nvvtdnyfxg8094[address] [place], [place] [address]Dr. Farhat Leal INR GUIDELINES SEE BELOW Normal [facility] Comment on above: Result Comment: MALINA RED INR: 2.0 - 3.0 CONDITIONS NOT LISTED BELOW 2.5 - 3.5 FOR PROSTHETIC HEART VALVE REPLACEMENT 2.5 - 3.5 RECURRENT THROMBOSIS Performed By: #### P T ####[facility] [address]tdt[address] [place] [address]Dr. Farhat Leal PT Coag (PPP) [Time] 34.7 s Critically high 9.0-11.6 [facility] Comment on above: Performed By: #### P T ####[facility] Daxjuwcjtl2723[address] [place], [place] [address]Dr. Farhat Leal FK506 (TACROLIMUS) WHOLE BLO ODon 05-11-2022 Tacrolimus (FK506), Blood 14.4 ng/mL Normal 2.0-20.0 [facility] Comment on above: Result Comment: Trou gh (immediately following transplant) 15.0 . Trough (steady state, 2 weeks or more after transplant): 3.0 - 8.0 . Performed by LC-MS/MS technology. Performed By: #### F K506T ####[facility] Gcsrlaucpz37[address] [place], [place] [address]Dr. Farhat Leal CBC AUTO DIFFon 05-08-2022 BASO # 0.0 103/ul Normal 0.0-0.1 [facility] Comment on above: Performed By: #### C BC ####[facility] Hujljclujs3315[address] [place], [place] [address]Dr. Farhat Leal Basophils/100 WBC (Bld) 0.5 % Normal 0.2-2.0 [facility] Comment on above: Performed By: #### C BC ####[facility] Ihkrxvejqf8309[address] [place], [place] [address]Dr. Farhat Leal EO # 0.2 103/ul Normal 0.0-0.7 [facility] Comment on above: Performed By: #### C BC ####[facility] Kvhrzpwywu076[address] [place], [place] [address]Dr. Farhat Leal Eosinophils/100 WBC (Bld) 2.9 % Normal 0.9-7.0 [facility] Comment on above: Performed By: #### C BC ####[facility] Cxrwyzbimo3229[address] [place], [place] [address]Dr. Farhat Leal Erythrocyte distribution width (RBC) [Ratio] 16.0 % Critically high 11.0-15.0 [facility] Comment on above: Performed By: #### C BC ####[facility] [address] [place] [address]Dr. Farhat Leal Hematocrit (Bld) [Volume fraction] 35.7 % Critically low 42.0-54.0 [facility] Comment on above: Performed By: #### C BC ####[facility] [address] [place] [address]Dr. Farhat Leal Hemoglobin (Bld) [Mass/Vol] 11.9 g/dL Critically low 14.0-18.0 [facility] Comment on above: Performed By: #### C BC ####[facility] Ndhhjtdiaw1138[address] [place], [place] [address]Dr. Farhat Leal IG # 0.03 10e3/ul Normal 0.00-0.03 [facility] Comment on above: Performed By: #### C BC ####[facility] Mfkxksuppg5054[address] [place], [place] [address]DrSkylar Leal IG % 0.5 % Normal 0.0-0.5 [facility] Comment on above: Performed By: #### C BC ####[facility] Kgfdmbcler2853[address] [place], [place] [address]DrSkylar Leal LYMPH # 2.4 103/ul Normal 1.2-3.8 [facility] Comment on above: Performed By: #### C BC ####[facility] Upkcvtkwgg9136[address] [place], [place] [address]Dr. Farhat Leal Lymphocytes/100 WBC (Bld) 37.8 % Normal 20.5-60.0 [facility] Comment on above: Performed By: #### C BC ####[facility] Glhozvlebc7636[address] [place], [place] [address]DrSkylar Leal MANUAL DIFF REQ NO Normal [facility] Comment on above: Performed By: #### C BC ####[facility] Hroxtyakoa[address] [place], [place] [address]DrSkylar Leal MCH (RBC) [Entitic mass] 30.4 pg Normal 25.9-34.0 [facility] Comment on above: Performed By: #### C BC ####[facility] [address] [place] [address]Dr. Farhat Elvis MCHC (RBC) [Mass/Vol] 33.3 g/dL Normal 29.9-35.2 [facility] Comment on above: Performed By: #### C BC ####[facility] [address]zsph[address] [place] [address]Dr. Farhat Leal MCV (RBC) [Entitic vol] 91.1 fL Normal 80.0-94.0 [facility] Comment on above: Performed By: #### C BC ####[facility] Vbplmhauyc3128[address] [place], [place] [address]Dr. Farhat Leal MONO # 0.7 103/ul Normal 0.3-0.8 [facility] Comment on above: Performed By: #### C BC ####[facility] Garplkanro633416 [address] [place], [place] [address]Dr. Farhat Leal Monocytes/100 WBC (Bld) 11.1 % Normal 1.7-12.0 [facility] Comment on above: Performed By: #### C BC ####[facility] Hwfqwxfjew17[address] [place], [place] [address]Dr. Farhat Leal NEUT # 2.9 103/ul Normal 1.4-6.5 [facility] Comment on above: Performed By: #### C BC ####[facility] Examihooxt3582[address] [place], [place] [address]Dr. Farhat Leal Neutrophils/100 WBC (Bld) 47.2 % Normal 43.0-75.0 [facility] Comment on above: Performed By: #### C BC ####[facility] Uxituuhanb[address] [place], [place] [address]DrSkylar Leal Platelet mean volume (Bld) [Entitic vol] 11.0 fL Normal 9.5-13.5 [facility] Comment on above: Performed By: #### C BC ####[facility] J[address]wpijxe[address] [place], [place] [address]Dr. Farhat Leal PLT 191 103/ul Normal 150-450 [facility] Comment on above: Performed By: #### C BC ####[facility] [address]odm[address] [place] [address]Dr. Farhat Leal RBC 3.92 106/ul Critically low 4.70-6.10 The [facility] Comment on above: Performed By: #### C BC ####[facility] [address]ewfs[address] [place] [address]Dr. Madelynlorri Elvis WBC 6.2 103/ul Normal 4.0-11.0 [facility] Comment on above: Performed By: #### C BC ####[facility] [address]qpwo[address] [place] [address]Dr. Farhat Elvis MAGNESIUMon 05-08-2022 Magnesium [Mass/Vol] 1.9 mg/dL Normal 1.8-2.4 [facility] Comment on above: Performed By: #### P HOS, MG ####[facility] Tcjlbafqks83[address] [place], [place] [address]Dr. Farhat Elvis PHOSPHORUSon 05-08-2022 Phosphate [Mass/Vol] 4.5 mg/dL Normal 2.6-4.7 [facility] Comment on above: Performed By: #### P HOS, MG ####[facility] Yzyiaebmng20[address] [place], [place] [address]Dr. Madelynlorri Leal PROF 14(COMP METB)on 023 Albumin [Mass/Vol] 2.9 g/dL Critically low 3.4-5.0 [facility] Comment on above: Performed By: #### C MP ####[facility] [address]xs[address] [place] [address]Dr. Farhat Leal Albumin/Globulin [Mass ratio] 0.9 {ratio} Normal [facility] Comment on above: Performed By: #### C MP ####[facility] Sjodhlpcpo2137[address] [place], [place] [address]Dr. Madelynlorri Leal ALP [Catalytic activity/Vol] 70 U/L Normal 46-116 [facility] Comment on above: Performed By: #### C MP ####[facility] Uylvccddiu[address] [place], [place] [address]Dr. Farhat Leal ALT [Catalytic activity/Vol] 13 U/L Critically low 16-63 [facility] Comment on above: Performed By: #### C MP ####[facility] [address] [place] [address]Dr. Madelynlorri Elvis Anion gap [Moles/Vol] 14.6 mmol/L Normal Th e [facility] Comment on above: Performed By: #### C MP ####[facility] Adsqltufbm[address] [place] [address]Dr. Farhat Elvis AST [Catalytic activity/Vol] 17 U/L Normal 15-37 [facility] Comment on above: Performed By: #### C MP ####[facility] Tlnnwogymh[address] [place], [place] [address]Dr. Farhat Leal Bilirubin [Mass/Vol] 0.8 mg/dL Normal 0.2-1.0 [facility] Comment on above: Performed By: #### C MP ####[facility] Gunrlxhmky580[address] [place], [place] [address]Dr. Farhat Leal Calcium [Mass/Vol] 8.9 mg/dL Normal 8.5-10.1 [facility] Comment on above: Performed By: #### C MP ####[facility] Vnwdtmades237[address] [place], [place] [address]Dr. Farhat Leal Chloride [Moles/Vol] 102 mmol/L Normal 98-107 [facility] Comment on above: Performed By: #### C MP ####[facility] Nnjbpeyngm33[address] [place], [place] [address]Dr. Farhat Leal CO2 [Moles/Vol] 22.9 mmol/L Normal 21.0-32.0 [facility] Comment on above: Performed By: #### C MP ####[facility] Lkojahpqwt615[address] [place], [place] [address]Dr. Farhat Leal Creatinine [Mass/Vol] 1.20 mg/dL Normal 0.70-1.30 [facility] Comment on above: Performed By: #### C MP ####[facility] Risjafatpm4442[address] [place], [place] [address]Dr. Farhat Leal EGFR-AF SYRIAN >60 Normal >=60 [facility] Comment on above: Performed By: #### C MP ####[facility] [address]qb[address] [place] [address]Dr. Farhat Elvis EGFR-NON AF SYRIAN 59 mL/min/1.73m2 Critically low >=60 [facility] Comment on above: Performed By: #### C MP ####[facility] Ez[address]ewvpfg15[address] [place] [phone]. Madelynlorri Elvis Globulin (S) [Mass/Vol] 3.1 g/dL Normal [facility] Comment on above: Performed By: #### C MP ####[facility] Yq[address]rmrbxd7[address] [place] [address]Dr. Madelynlorri Elvis Glucose [Mass/Vol] 447 mg/dL Critically high 74-106 T [facility] Comment on above: Performed By: #### C MP ####[facility] T[address]htmcxk17[address] [place] [phone]. Farhat Leal Potassium [Moles/Vol] 4.5 mmol/L Normal 3.5-5.1 [facility] Comment on above: Performed By: #### C MP ####[facility] Hoaaetiegi1719[address] [place], [place] [address]Dr. Farhat Elvis Protein [Mass/Vol] 6.0 g/dL Critically low 6.4-8.2 Th [facility] Comment on above: Performed By: #### C MP ####[facility] Loriluibij4523[address] [place], [place] [address]Dr. Madelynlorri Elvis Sodium [Moles/Vol] 135 mmol/L Critically low 136-145 Th [facility] Comment on above: Performed By: #### C MP ####[facility] L[address]zw[address] [place], [place] [address]Dr. Farhat Leal Urea nitrogen [Mass/Vol] 52.0 mg/dL Critically high 7.0-18.0 [facility] Comment on above: Performed By: #### C MP ####[facility] Ztd[address]svmat[address] [place], [place] [address]Dr. Farhat Leal Urea nitrogen/Creatinine [Mass ratio] 43.3 mg/mg Normal [facility] Comment on above: Performed By: #### C MP ####[facility] Brmlwzfpsg[address] [place], [place] [address]Dr. Farhat Leal PROTIMEon 05-06-2022 INR Coag (PPP) [Relative time] 2.25 {INR} Normal [facility] Comment on above: Performed By: #### P T ####[facility] Xmhqqpmmef[address] [place], [place] [address]Dr. Farhat Leal INR GUIDELINES SEE BELOW Normal [facility] Comment on above: Result Comment: MALINA RED INR: 2.0 - 3.0 CONDITIONS NOT LISTED BELOW 2.5 - 3.5 FOR PROSTHETIC HEART VALVE REPLACEMENT 2.5 - 3.5 RECURRENT THROMBOSIS Performed By: #### P T ####[facility] Opfjrkdfsz1016[address] [place], [place] [address]Dr. Farhat Leal PT Coag (PPP) [Time] 22.8 s Critically high 9.0-11.6 [facility] Comment on above: Performed By: #### P T ####[facility] V[address]chqwqyga[address] [place], [place] [address]Dr. Farhat Leal FK506 (TACROLIMUS) WHOLE BLO ODon 05-04-2022 Tacrolimus (FK506), Blood 10.4 ng/mL Normal 2.0-20.0 [facility] Comment on above: Result Comment: Trou gh (immediately following transplant) 15.0 . Trough (steady state, 2 weeks or more after transplant): 3.0 - 8.0 . Performed by LC-MS/MS technology. Performed By: #### F K506T ####[facility] Ramjjswgsu133[address] [place], [place] [address]Dr. Farhat Leal CBC AUTO DIFFon 05-01-2022 BASO # 0.1 103/ul Normal 0.0-0.1 [facility] Comment on above: Performed By: #### C BC ####[facility] Btsuawhika[address] [place], [place] [address]DrSkylar Leal Basophils/100 WBC (Bld) 0.7 % Normal 0.2-2.0 [facility] Comment on above: Performed By: #### C BC ####[facility] [address]xx[address] [place] [address]Dr. Farhat Leal EO # 0.2 103/ul Normal 0.0-0.7 [facility] Comment on above: Performed By: #### C BC ####[facility] Rhmstdduap[address] [place] [address]Dr. Farhat Leal Eosinophils/100 WBC (Bld) 3.2 % Normal 0.9-7.0 [facility] Comment on above: Performed By: #### C BC ####[facility] Wseofoftrr77[address] [place], [place] [address]Dr. Farhat Leal Erythrocyte distribution width (RBC) [Ratio] 16.4 % Critically high 11.0-15.0 [facility] Comment on above: Performed By: #### C BC ####[facility] Idpsvkrkup7064[address] [place], [place] [address]Dr. Farhat Leal Hematocrit (Bld) [Volume fraction] 35.1 % Critically low 42.0-54.0 [facility] Comment on above: Performed By: #### C BC ####[facility] [address]paodjfpv60[address] [place], [place] [address]Dr. Farhat Leal Hemoglobin (Bld) [Mass/Vol] 11.6 g/dL Critically low 14.0-18.0 [facility] Comment on above: Performed By: #### C BC ####[facility] Ql[address]cihquw110[address] [place], [place] [address]Dr. Farhat Leal IG # 0.03 10e3/ul Normal 0.00-0.03 [facility] Comment on above: Performed By: #### C BC ####[facility] Pyyllvsobk5555[address] [place], [place] [address]Dr. Farhat Leal IG % 0.4 % Normal 0.0-0.5 [facility] Comment on above: Performed By: #### C BC ####[facility] Jruzqpvavs86[address] [place], [place] [address]Dr. Madelynlorri Leal LYMPH # 2.4 103/ul Normal 1.2-3.8 [facility] Comment on above: Performed By: #### C BC ####[facility] [address]ps[address]ky[address] [place] [phone]. Madelynlorri Leal Lymphocytes/100 WBC (Bld) 35.1 % Normal 20.5-60.0 [facility] Comment on above: Performed By: #### C BC ####[facility] [address]vxw[address] [place] [address]Dr. Farhat Leal MANUAL DIFF REQ NO Normal [facility] Comment on above: Performed By: #### C BC ####[facility] Z[address]nyvdgat57[address] [place] [phone]. Farhat eLal MCH (RBC) [Entitic mass] 29.4 pg Normal 25.9-34.0 [facility] Comment on above: Performed By: #### C BC ####[facility] S[address]pauqus[address] [place] [address]Dr. Farhat Leal MCHC (RBC) [Mass/Vol] 33.0 g/dL Normal 29.9-35.2 [facility] Comment on above: Performed By: #### C BC ####[facility] Oix[address]gsdfn40[address] [place] [phone]. Farhat Leal MCV (RBC) [Entitic vol] 88.9 fL Normal 80.0-94.0 [facility] Comment on above: Performed By: #### C BC ####[facility] Xkgivuqvkr[address] [place] [address]Dr. Farhat Leal MONO # 0.7 103/ul Normal 0.3-0.8 [facility] Comment on above: Performed By: #### C BC ####[facility] Gkbkmkatnd2[address] [place] [address]Dr. Farhat Leal Monocytes/100 WBC (Bld) 9.6 % Normal 1.7-12.0 [facility] Comment on above: Performed By: #### C BC ####[facility] Jqvsosfchj15[address] [place] [address]Dr. Farhat Leal NEUT # 3.5 103/ul Normal 1.4-6.5 [facility] Comment on above: Performed By: #### C BC ####[facility] Uswncuqhsb88[address] [place] [address]Dr. Farhat Elvis Neutrophils/100 WBC (Bld) 51.0 % Normal 43.0-75.0 [facility] Comment on above: Performed By: #### C BC ####[facility] Qvkvqkajje32[address] [place] [phone]. Farhat Elvis Platelet mean volume (Bld) [Entitic vol] 10.3 fL Normal 9.5-13.5 [facility] Comment on above: Performed By: #### C BC ####[facility] [address] [place] [address]Dr. Farhat Leal PLT 184 103/ul Normal 150-450 [facility] Comment on above: Performed By: #### C BC ####[facility] Ntcipdrrqt8423 [place] [phone]. Farhat Leal RBC 3.95 106/ul Critically low 4.70-6.10 [facility] Comment on above: Performed By: #### C BC ####[facility] Relmxqjvln6[address] [place] [address]Dr. Farhat Leal WBC 7.0 103/ul Normal 4.0-11.0 [facility] Comment on above: Performed By: #### C BC ####[facility] Dh[address]zssspj9407 [place] [phone] Leal PROF 14(COMP METB)on 023 Albumin [Mass/Vol] 2.6 g/dL Critically low 3.4-5.0 [facility] Comment on above: Performed By: #### C MP ####[facility] Pirwedievk[address] [place] [phone] Leal Albumin/Globulin [Mass ratio] 0.9 {ratio} Normal [facility] Comment on above: Performed By: #### C MP ####[facility] T[address]tr[address]zujlm[address] [place] [phone] Leal ALP [Catalytic activity/Vol] 53 U/L Normal 46-116 [facility] Comment on above: Performed By: #### C MP ####[facility] Gvnqphdqov[address] [place] [phone]. Farhat Elvis ALT [Catalytic activity/Vol] 17 U/L Normal 16-63 [facility] Comment on above: Performed By: #### C MP ####[facility] Gvldmwtuar1958 [place] [id number]. Farhat Elvis Anion gap [Moles/Vol] 10.0 mmol/L Normal Th [facility] Comment on above: Performed By: #### C MP ####[facility] Bhabcpmpxg1331 [place] [phone]. Farhat Elvis AST [Catalytic activity/Vol] 19 U/L Normal 15-37 [facility] Comment on above: Performed By: #### C MP ####[facility] Xjxbcjghwc5176 [place] [address]Dr. Farhat Leal Bilirubin [Mass/Vol] 0.5 mg/dL Normal 0.2-1.0 [facility] Comment on above: Performed By: #### C MP ####[facility] Bjzzisiyre0144 [place] [phone]. Farhat Elvis Calcium [Mass/Vol] 8.4 mg/dL Critically low 8.5-10.1 [facility] Comment on above: Performed By: #### C MP ####[facility] Jwkxluwpnl2993 [place] [address]Dr. Farhat Leal Chloride [Moles/Vol] 108 mmol/L Critically high 98-107 [facility] Comment on above: Performed By: #### C MP ####[facility] Bxauwxdksv4099 [place] [phone]. Farhat Leal CO2 [Moles/Vol] 26.9 mmol/L Normal 21.0-32.0 [facility] Comment on above: Performed By: #### C MP ####[facility] Qmogzpbwof4482 [place] [address]Dr. Farhat Leal Creatinine [Mass/Vol] 1.20 mg/dL Normal 0.70-1.30 [facility] Comment on above: Performed By: #### C MP ####[facility] Ghejwiybpq1481 [place] [phone]. Farhat Leal EGFR-AF SYRIAN >60 Normal >=60 [facility] Comment on above: Performed By: #### C MP ####[facility] Lnrgnvclrd6242 [place], [place] [address]Av. Farhat Elvis EGFR-NON AF SYRIAN 59 mL/min/1.73m2 Critically low >=60 [facility] Comment on above: Performed By: #### C MP ####[facility] Nerjpllrnd5076 [place] [phone]. Farhat Elvis Globulin (S) [Mass/Vol] 3.0 g/dL Normal [facility] Comment on above: Performed By: #### C MP ####[facility] Eufcydaapr0043 [place] [address]Dr. Madelynlorri Elvis Glucose [Mass/Vol] 213 mg/dL Critically high 74-106 [facility] Comment on above: Performed By: #### C MP ####[facility] Azdxjtvibc2984 [place] [phone]. Farhat Elvis Potassium [Moles/Vol] 3.9 mmol/L Normal 3.5-5.1 [facility] Comment on above: Performed By: #### C MP ####[facility] Eujeayvuuo8741 [place] [phone]. Madelynlorri Elvis Protein [Mass/Vol] 5.6 g/dL Critically low 6.4-8.2 [facility] Comment on above: Performed By: #### C MP ####[facility] Dkthclgpzf3102 [place] [phone]. Madelynlorri Leal Sodium [Moles/Vol] 141 mmol/L Normal 136-145 [facility] Comment on above: Performed By: #### C MP ####[facility] Saftpfrrgg3727 [place] [phone]. Farhat Elvis Urea nitrogen [Mass/Vol] 61.0 mg/dL Critically high 7.0-18.0 [facility] Comment on above: Performed By: #### C MP ####[facility] Cixapwtukt[address] [place], [place] [address]Dr. Madelynlorri Leal Urea nitrogen/Creatinine [Mass ratio] 50.8 mg/mg Normal [facility] Comment on above: Performed By: #### C MP ####[facility] Dtljyihame4[address] [place], [place] [address]Dr. Farhat Leal FK506 (TACROLIMUS) WHOLE BLO ODon 04-27-2022 Tacrolimus (FK506), Blood 16.5 ng/mL Normal 2.0-20.0 [facility] Comment on above: Result Comment: Trou gh (immediately following transplant) 15.0 . Trough (steady state, 2 weeks or more after transplant): 3.0 - 8.0 . Performed by LC-MS/MS technology. Performed By: #### F K506T ####[facility] Mmaqxllwov64[address] [place], [place] [address]Dr. Farhat Elvis CBC AUTO DIFFon 04-24-2022 BASO # 0.0 103/ul Normal 0.0-0.1 [facility] Comment on above: Performed By: #### C BC ####[facility] Vqhgpmvjvl8[address] [place], [place] [address]Dr. Farhat Leal Basophils/100 WBC (Bld) 0.5 % Normal 0.2-2.0 [facility] Comment on above: Performed By: #### C BC ####[facility] Vswlaripeu2584[address] [place], [place] [address]Dr. Madelynlorri Elvis EO # 0.2 103/ul Normal 0.0-0.7 [facility] Comment on above: Performed By: #### C BC ####[facility] Hnrlajxfmx183[address] [place], [place] [address]Dr. Farhat Leal Eosinophils/100 WBC (Bld) 3.1 % Normal 0.9-7.0 [facility] Comment on above: Performed By: #### C BC ####[facility] Bbvtlnvhoq26[address] [place], [place] [address]Dr. Farhat Leal Erythrocyte distribution width (RBC) [Ratio] 16.3 % Critically high 11.0-15.0 [facility] Comment on above: Performed By: #### C BC ####[facility] Lygadoglbv1481 [place] [address]Dr. Farhat Leal Hematocrit (Bld) [Volume fraction] 34.0 % Critically low 42.0-54.0 [facility] Comment on above: Performed By: #### C BC ####[facility] Avxtfqambn6178 [place] [address]Dr. Madelynlorri Elvis Hemoglobin (Bld) [Mass/Vol] 11.6 g/dL Critically low 14.0-18.0 [facility] Comment on above: Performed By: #### C BC ####[facility] Kotsbygnup6[address] [place], [place] [address]Dr. Farhat Leal IG # 0.02 10e3/ul Normal 0.00-0.03 [facility] Comment on above: Performed By: #### C BC ####[facility] Nrqwfodape8756[address] [place], [place] [address]Dr. Farhat Leal IG % 0.4 % Normal 0.0-0.5 [facility] Comment on above: Performed By: #### C BC ####[facility] Uuzkqpofyp2[address] [place], [place] [address]DrSkylar Madelynlorri Leal LYMPH # 2.2 103/ul Normal 1.2-3.8 [facility] Comment on above: Performed By: #### C BC ####[facility] Pgrpzqpsdy77[address] [place], [place] [address]DrSkylar Leal Lymphocytes/100 WBC (Bld) 38.8 % Normal 20.5-60.0 [facility] Comment on above: Performed By: #### C BC ####[facility] Pyfofnimgz3206[address] [place], [place] [address]DrSkylar Leal MANUAL DIFF REQ NO Normal [facility] Comment on above: Performed By: #### C BC ####[facility] Pnrdnykqfz8853[address] [place], [place] [address]DrSkylar Leal MCH (RBC) [Entitic mass] 30.1 pg Normal 25.9-34.0 [facility] Comment on above: Performed By: #### C BC ####[facility] Whrdbcwvvq5583 [place] [phone]. Farhat Elvis MCHC (RBC) [Mass/Vol] 34.1 g/dL Normal 29.9-35.2 [facility] Comment on above: Performed By: #### C BC ####[facility] Qbicollisu0389 [place] [phone] Leal MCV (RBC) [Entitic vol] 88.1 fL Normal 80.0-94.0 [facility] Comment on above: Performed By: #### C BC ####[facility] Kdwzuuzdla7[address] [place], [place] [address]DrSkylar Leal MONO # 0.6 103/ul Normal 0.3-0.8 [facility] Comment on above: Performed By: #### C BC ####[facility] Gabypjxcqf3135[address] [place], [place] [address]Dr. Farhat Leal Monocytes/100 WBC (Bld) 10.8 % Normal 1.7-12.0 [facility] Comment on above: Performed By: #### C BC ####[facility] Xctlawuclf[address] [place], [place] [address]Dr. Farhat Leal NEUT # 2.6 103/ul Normal 1.4-6.5 [facility] Comment on above: Performed By: #### C BC ####[facility] Frbmbouodj98[address] [place], [place] [address]DrSkylar Leal Neutrophils/100 WBC (Bld) 46.4 % Normal 43.0-75.0 [facility] Comment on above: Performed By: #### C BC ####[facility] Bqawomdfht[address] [place], [place] [id number] Leal Platelet mean volume (Bld) [Entitic vol] 10.9 fL Normal 9.5-13.5 [facility] Comment on above: Performed By: #### C BC ####[facility] J[address]hlnojzs[address] [place], [place] [id number] Leal PLT 159 103/ul Normal 150-450 [facility] Comment on above: Performed By: #### C BC ####[facility] Jkpvqrhcbk3170 [place] [address]Dr. Madelynlorri Elvis RBC 3.86 106/ul Critically low 4.70-6.10 [facility] Comment on above: Performed By: #### C BC ####[facility] Rvtjqsecuo5373 [place] [address]Dr. Farhat Leal WBC 5.6 103/ul Normal 4.0-11.0 [facility] Comment on above: Performed By: #### C BC ####[facility] Oryfgvjaat8278 [place] [address]Dr. Farhat Leal PROTIMEon 04-24-2022 INR Coag (PPP) [Relative time] 3.23 {INR} Normal [facility] Comment on above: Performed By: #### P T ####[facility] Jjerwkbhld15[address] [place], [place] [address]Dr. Farhat Leal INR GUIDELINES SEE BELOW Normal [facility] Comment on above: Result Comment: MALINA RED INR: 2.0 - 3.0 CONDITIONS NOT LISTED BELOW 2.5 - 3.5 FOR PROSTHETIC HEART VALVE REPLACEMENT 2.5 - 3.5 RECURRENT THROMBOSIS Performed By: #### P T ####[facility] Idovropiby20[address] [place], [place] [address]Dr. Farhat Leal PT Coag (PPP) [Time] 32.0 s Critically high 9.0-11.6 [facility] Comment on above: Performed By: #### P T ####[facility] Ulgvmmhzvg98[address] [place], [place] [address]Dr. Farhat Leal FK506 (TACROLIMUS) WHOLE BLO ODon 04-20-2022 Tacrolimus (FK506), Blood 13.9 ng/mL Normal 2.0-20.0 [facility] Comment on above: Result Comment: Trou gh (immediately following transplant) 15.0 . Trough (steady state, 2 weeks or more after transplant): 3.0 - 8.0 . Performed by LC-MS/MS technology. Performed By: #### F K506T ####[facility] Bbmvgvtysh5567[address] [place], [place] [address]Dr. Farhat Leal CBC AUTO DIFFon 04-17-2022 BASO # 0.0 103/ul Normal 0.0-0.1 [facility] Comment on above: Performed By: #### C BC ####[facility] Bliiqgvwpd2304 [place] [address]Dr. Farhat Leal Basophils/100 WBC (Bld) 0.4 % Normal 0.2-2.0 [facility] Comment on above: Performed By: #### C BC ####[facility] Ghltmrzrda3011 [place] [address]Dr. Farhat Leal EO # 0.2 103/ul Normal 0.0-0.7 [facility] Comment on above: Performed By: #### C BC ####[facility] Zfnfgapywm8714 [place] [address]Dr. Farhat Leal Eosinophils/100 WBC (Bld) 2.8 % Normal 0.9-7.0 [facility] Comment on above: Performed By: #### C BC ####[facility] Wtwkvuxauj1498 [place] [address]Dr. Farhat Leal Erythrocyte distribution width (RBC) [Ratio] 16.1 % Critically high 11.0-15.0 [facility] Comment on above: Performed By: #### C BC ####[facility] Yxofhhqdyd8175 [place] [address]Dr. Farhat Leal Hematocrit (Bld) [Volume fraction] 35.7 % Critically low 42.0-54.0 [facility] Comment on above: Performed By: #### C BC ####[facility] Omhiwmtqta9744 [place] [address]Dr. Farhat Leal Hemoglobin (Bld) [Mass/Vol] 12.2 g/dL Critically low 14.0-18.0 [facility] Comment on above: Performed By: #### C BC ####[facility] Uvqnpknvps6638 [place] [address]Dr. Farhat Elvis IG # 0.03 10e3/ul Normal 0.00-0.03 [facility] Comment on above: Performed By: #### C BC ####[facility] Edwfqpfqfh0458 [place] [phone]. Farhat Leal IG % 0.4 % Normal 0.0-0.5 [facility] Comment on above: Performed By: #### C BC ####[facility] Aicflbpnse5420 [place] [phone]. Farhat Leal LYMPH # 2.4 103/ul Normal 1.2-3.8 [facility] Comment on above: Performed By: #### C BC ####[facility] Naibunkjkl6109 [place] [address]Dr. Farhat Leal Lymphocytes/100 WBC (Bld) 36.1 % Normal 20.5-60.0 [facility] Comment on above: Performed By: #### C BC ####[facility] Spigryjrkj0996 [place] [address]Dr. Farhat Leal MANUAL DIFF REQ NO Normal The [facility] Comment on above: Performed By: #### C BC ####[facility] Uvjouwmdcz1418 [place] [phone]. Farhat Leal MCH (RBC) [Entitic mass] 30.3 pg Normal 25.9-34.0 [facility] Comment on above: Performed By: #### C BC ####[facility] Dnfytpmibp9077 [place] [address]Dr. Farhat Leal MCHC (RBC) [Mass/Vol] 34.2 g/dL Normal 29.9-35.2 [facility] Comment on above: Performed By: #### C BC ####[facility] Vngjivwpvz5617 [place] [address]Dr. Farhat Leal MCV (RBC) [Entitic vol] 88.6 fL Normal 80.0-94.0 [facility] Comment on above: Performed By: #### C BC ####[facility] Krnejzvwvy2104 [place] [address]Dr. Farhat Leal MONO # 0.7 103/ul Normal 0.3-0.8 [facility] Comment on above: Performed By: #### C BC ####[facility] Gkbxhktpwt8057 [place] [address]Dr. Farhat Leal Monocytes/100 WBC (Bld) 10.1 % Normal 1.7-12.0 [facility] Comment on above: Performed By: #### C BC ####[facility] Gueletdlsz6941 [place] [address]Dr. Farhat Leal NEUT # 3.4 103/ul Normal 1.4-6.5 [facility] Comment on above: Performed By: #### C BC ####[facility] Elkjzchkoz1731 [place] [address]Dr. Farhat Leal Neutrophils/100 WBC (Bld) 50.2 % Normal 43.0-75.0 [facility] Comment on above: Performed By: #### C BC ####[facility] Ayqxjfdtpx9659 [place] [address]Dr. Farhat Leal Platelet mean volume (Bld) [Entitic vol] 11.8 fL Normal 9.5-13.5 [facility] Comment on above: Performed By: #### C BC ####[facility] Dlskfpivdv5692 [place] [phone]. Farhat Leal PLT 193 103/ul Normal 150-450 [facility] Comment on above: Performed By: #### C BC ####[facility] Gviyhflkud1986 [place] [address]Dr. Farhat Leal RBC 4.03 106/ul Critically low 4.70-6.10 The [facility] Comment on above: Performed By: #### C BC ####[facility] Rriykmcgic1270 [place] [address]Dr. Farhat Leal WBC 6.8 103/ul Normal 4.0-11.0 [facility] Comment on above: Performed By: #### C BC ####[facility] Oyysfdglos7337 [place] [address]Dr. Madelynlorri Leal PROF 14(COMP METB)on 023 Albumin [Mass/Vol] 2.9 g/dL Critically low 3.4-5.0 [facility] Comment on above: Performed By: #### C MP ####[facility] Spuubppzut7628 [place] [phone]. Farhat Leal Albumin/Globulin [Mass ratio] 0.9 {ratio} Normal [facility] Comment on above: Performed By: #### C MP ####[facility] Woplqaotzd1546 [place] [phone]. Farhat Leal ALP [Catalytic activity/Vol] 67 U/L Normal 46-116 [facility] Comment on above: Performed By: #### C MP ####[facility] Finfaustns6313 [place] [address]Dr. Farhat Elvis ALT [Catalytic activity/Vol] 15 U/L Critically low 16-63 [facility] Comment on above: Performed By: #### C MP ####[facility] Nsymtivclg10[address] [place], [place] [address]Dr. Farhat Elvis Anion gap [Moles/Vol] 10.8 mmol/L Normal [facility] Comment on above: Performed By: #### C MP ####[facility] Bifkftvtrj2723[address] [place], [place] [address]Dr. Farhat Elvis AST [Catalytic activity/Vol] 23 U/L Normal 15-37 [facility] Comment on above: Performed By: #### C MP ####[facility] Gonuairafv2614[address] [place], [place] [address]Dr. Farhat Elvis Bilirubin [Mass/Vol] 0.6 mg/dL Normal 0.2-1.0 [facility] Comment on above: Performed By: #### C MP ####[facility] Kkockkwtwn0284 [place] [address]Dr. Farhat Elvis Calcium [Mass/Vol] 8.7 mg/dL Normal 8.5-10.1 [facility] Comment on above: Performed By: #### C MP ####[facility] Cnjfzlovne2501[address] [place], [place] [address]Dr. Farhat Leal Chloride [Moles/Vol] 105 mmol/L Normal 98-107 [facility] Comment on above: Performed By: #### C MP ####[facility] Pxqrcgnpbk0171 [place] [address]Dr. Farhat Elvis CO2 [Moles/Vol] 29.5 mmol/L Normal 21.0-32.0 [facility] Comment on above: Performed By: #### C MP ####[facility] Omswstgllt3594 [place] [address]Dr. Farhat Elvis Creatinine [Mass/Vol] 1.37 mg/dL Critically high 0.70-1.30 [facility] Comment on above: Performed By: #### C MP ####[facility] Tbemczbtcu3094[address] [place], [place] [address]Dr. Farhat Elvis EGFR-AF SYRIAN >60 Normal >=60 [facility] Comment on above: Performed By: #### C MP ####[facility] Ojawcvlkjg0009[address] [place], [place] [address]Dr. Farhat Leal EGFR-NON AF SYRIAN 50 mL/min/1.73m2 Critically low >=60 [facility] Comment on above: Performed By: #### C MP ####[facility] Prdffcmyqz4157[address] [place], [place] [address]Dr. Madelynlorri Leal Globulin (S) [Mass/Vol] 3.1 g/dL Normal [facility] Comment on above: Performed By: #### C MP ####[facility] Rvnzltaaqb2298[address] [place], [place] [address]Dr. Farhat Leal Glucose [Mass/Vol] 203 mg/dL Critically high 74-106 [facility] Comment on above: Performed By: #### C MP ####[facility] Tamksdhara144[address] [place], [place] [address]Dr. Madelynlorri Leal Potassium [Moles/Vol] 4.3 mmol/L Normal 3.5-5.1 [facility] Comment on above: Performed By: #### C MP ####[facility] Fypzoqbhjl135[address] [place], [place] [address]Dr. Farhat Leal Protein [Mass/Vol] 6.0 g/dL Critically low 6.4-8.2 Th e [facility] Comment on above: Performed By: #### C MP ####[facility] Dvqwjjvziz[address] [place], [place] [address]Dr. Farhat Leal Sodium [Moles/Vol] 141 mmol/L Normal 136-145 [facility] Comment on above: Performed By: #### C MP ####[facility] Riajgcrlvk1507 [place] [address]Dr. Farhat Leal Urea nitrogen [Mass/Vol] 65.0 mg/dL Critically high 7.0-18.0 [facility] Comment on above: Performed By: #### C MP ####[facility] Fwzpxqfuhw9212 [place] [address]Dr. Farhat Leal Urea nitrogen/Creatinine [Mass ratio] 47.4 mg/mg Normal [facility] Comment on above: Performed By: #### C MP ####[facility] Bqpqgakzrm2745 [place] [address]Dr. Farhat Leal PROTIMEon 04-15-2022 INR Coag (PPP) [Relative time] 3.88 {INR} Normal [facility] Comment on above: Performed By: #### P T ####[facility] Iggambdqqt0685 [place] [address]Dr. Farhat Leal INR GUIDELINES SEE BELOW Normal [facility] Comment on above: Result Comment: MALINA RED INR: 2.0 - 3.0 CONDITIONS NOT LISTED BELOW 2.5 - 3.5 FOR PROSTHETIC HEART VALVE REPLACEMENT 2.5 - 3.5 RECURRENT THROMBOSIS Performed By: #### P T ####[facility] Jshennapqw6025[address] [place], [place] [address]Dr. Farhat Leal PT Coag (PPP) [Time] 38.1 s Critically high 9.0-11.6 [facility] Comment on above: Performed By: #### P T ####[facility] [address]jzobeqsaz[address] [place], [place] [address]Dr. Farhat Leal Glucose Glucometer (BldC) [M ass/Vol]Ordered By: Sadia Aguilar on 04-14-2022 Glucose [Mass/Vol] 162 mg/dL [facility] Comment on above: Random Glucose Refer ence Range is dependent on time and content of last meal. Glucose of more than 200 mg/dL in a nonstressed, ambulatory subject supports the diagnosis of Diabetes Mellitus. Glucose Poct Glucometerson 0 04-14-2022 Commemt1 Glu2: Cleaned Meter Normal [facility] Comment on above: Result Comment: PERF ORMED BY: [facility] [place] [address] [employer] MANAGER JOSE F ELLIOTT M.D. Performed By: #### G LULS #### Point of Care testing , Glucose [Mass/Vol] 162 mg/dL Normal [facility] Comment on above: Result Comment: [facility] Glucose Reference Range is dependent on time and content of last meal. Glucose of more than 200 mg/dL in a nonstressed, ambulatory subject supports the diagnosis of Diabetes Mellitus. Performed By: #### G LULS #### Point of Care testing , No Panel InformationOrdered By: Sadia Aguilar on 04-14-2022 Bedside Glucose Comment Glu2: cleaned meter [facility] MAGNESIUMon 04-13-2022 Magnesium [Mass/Vol] 1.7 mg/dL Critically low 1.8-2.4 [facility] Comment on above: Performed By: #### M Anais PHOS ####[facility] Metfefdjhm9697 [place] [address]Dr. Farhat Leal PHOSPHORUSon 04-13-2022 Phosphate [Mass/Vol] 4.8 mg/dL Critically high 2.6-4.7 [facility] Comment on above: Performed By: #### M Anais PHOS ####[facility] Jvyawfvexq7673 [place] [phone]. Farhat Leal PROTIMEon 04-13-2022 INR Coag (PPP) [Relative time] 3.16 {INR} Normal [facility] Comment on above: Performed By: #### P T ####[facility] Qabvywqery9224 [place] [address]Dr. Farhat Leal INR GUIDELINES SEE BELOW Normal [facility] Comment on above: Result Comment: MALINA RED INR: 2.0 - 3.0 CONDITIONS NOT LISTED BELOW 2.5 - 3.5 FOR PROSTHETIC HEART VALVE REPLACEMENT 2.5 - 3.5 RECURRENT THROMBOSIS Performed By: #### P T ####[facility] Sqtkwcsjbe3543 [place] [address]Dr. Farhat Leal PT Coag (PPP) [Time] 31.4 s Critically high 9.0-11.6 [facility] Comment on above: Performed By: #### P T ####[facility] Xkcaylfekf1096 [place] [address]Dr. Farhat Leal MAGNESIUMon 03-11-2022 Magnesium [Mass/Vol] 1.6 mg/dL Critically low 1.8-2.4 [facility] Comment on above: Performed By: #### M G, PHOS ####[facility] Hpulrsezpd2082 [place] [address]Dr. Farhat Leal PHOSPHORUSon 03-11-2022 Phosphate [Mass/Vol] 5.3 mg/dL Critically high 2.6-4.7 [facility] Comment on above: Performed By: #### M Anais, PHOS ####[facility] [facility] [id number] [place], [place] [address]Dr. Farhat Leal CNOVon 02-26-2022 CNOV Office Visit (VASSMN ) ALEX ALMONTE Kate ([id number]) 1945 M TRN Date Time Provider Department 02/26/22 3:00 PM HINA PETERSON During your visit today, we recorded the following information about you: Temperature Pulse Blood pressure 96.6 degrees 75/minute 88/75 Hina Peterson MD, MD 02/26/2022 4:31 PM Signed [facility] DEPART[facility] OF VASCULAR SURGERY OUTPATIENT VISIT DATE [...] his postop visit. He has been in jail since then and has been recovering from his acute on chronic congestive heart failure. His wound has largely been healing without any issues and the maxwell and sutures were removed at the nursing facility. He comes here with a lateral wound eschar. He denies any fevers, chills, or any drainage. He is on anticoagulation. 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 Patient on mycophenolate mofetil , cellcept and prednisone Mixed hyperlipidemia due to type 2 diabetes mellitus (FORM[facility]LY [facility]) 11/29/2021 Osteomyelitis (FORM[facility]LY [facility]) 11/29/2021 Paroxysmal atrial fibrillation ([facility]LY [facility]) Renal transplant, status post SA node dysfunction (FORM[facility]LY [facility]) s/p pacemaker Type 2 diabetes mellitus with diabetic neuropathy, with long-term current use of insulin (FORM[facility]LY [facility]) 02/24/2002 PAST SURGICAL HISTORY Procedure Laterality [...] by mouth daily with lunch. Magic Cup [place] with lunch aspirin, enteric coated (ASPIRIN, ENTERIC COATED) 81 mg EC tablet Take 1 tablet by (more content not included)... [facility] 02-25-2022 INR Coag (PPP) [Relative time] 1.31 {INR} Normal [facility] Comment on above: Performed By: #### P T ####[facility] [address] [place] [id number] Leal INR GUIDELINES SEE BELOW Normal [facility] Comment on above: Result Comment: MALINA RED INR: 2.0 - 3.0 CONDITIONS NOT LISTED BELOW 2.5 - 3.5 FOR PROSTHETIC HEART VALVE REPLACEMENT 2.5 - 3.5 RECURRENT THROMBOSIS Performed By: #### P T ####[facility] [address] [place] [address]DrSkylar Leal PT Coag (PPP) [Time] 13.7 s Critically high 9.0-11.6 [facility] Comment on above: Performed By: #### P T ####[facility] [address] [place] [address]DrSkylar Leal CNPRosalie 02-19-2022 CNPN Telephone (TXCTGL) ALEX ALMONTE ([id number]) 1945 M TRN Date Time Provider Department [...] by mouth daily with lunch. 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/2002 DIABETES UNCOMPL ADULT-UNCONTRLLED [[id number]] 02/24/2002 KIDNEY TRANSPLANT STATUS [Z94.0] 09/07/2003 PROPHYLACTIC IMMUNOTHERAPY [Z29.8] 07/30/2006 MCC STEROIDS [[id number]] 07/30/2006 VITAMIN D DEFICIENCY NOS [E55.9] 09/07/2008 [...] [R09.89] 09/30/2021 PAD (peripheral artery disease) (FORMERLY [facility]) [I73.9] 09/26/2021 Osteomyelitis (FORM[facility]LY [facility]) [M86.9] 11/29/2021 Class 1 obesity due to excess calories with ser*11/29/2021 Mixed hyperlipidemia due to type 2 diabetes myles*11/29/2021 Type 2 diabetes mellitus with diabetic peripher*11/29/2021 Atherosclerosis of marshall artery of extremity w*11/29/2021 Malnutrition of moderate degree ([facility]) [E44.0] 12/01/2021 Dermatitis associated with moisture [L30.8] 12/04/2021 Encounter Status:Closed by AUGUSTA MEDRANO on 02/19/22 [facility] Sonya 02-18-2022 CNPN Telephone (PODCCP) ALEX ALMONTE ([id number]) 1945 M TRN Date Time Provider Department 02/18/22 DEVON MOREIRA PODREAL During your visit today, we recorded the following information about you: Yumiko Camelia 02/18/2022 3:16 PM Signed Reason for call: Mr. Almonte would like to request a sooner appointment with Dr. Peterson than 04/13/2022. Contact Name (if not the patient) Alex's nurse Home and cell number(Ask for Alex's nurse) [phone] Diagnosis 4 mo f/u wound check Best [...] by mouth daily with lunch. 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/2002 DIABETES UNCOMPL ADULT-UNCONTRLLED [[id number]] 02/24/2002 KIDNEY TRANSPLANT STATUS [Z94.0] 09/07/2003 PROPHYLACTIC IMMUNOTHERAPY [Z29.8] 07/30/2006 ALUMNI COORDINATOR STEROIDS [[id number]] 07/30/2006 VITAMIN D DEFICIENCY NOS [E55.9] 09/07/2008 [...] [R09.89] 09/30/2021 PAD (peripheral artery disease) (FORM[facility]LY [facility]) [I73.9] 09/26/2021 Osteomyelitis (HCC) [M86.9] 11/29/2021 Class 1 obesity due to excess calories with ser*11/29/2021 Mixed hyperlipidemia due to type 2 diabetes myles*11/29/2021 Type 2 diabetes mellitus with diabetic peripher*11/29/2021 Atherosclerosis of marshall artery of extremity w*11/29/2021 Malnutrition of moderate degree (HCC) [E44.0] 12/01/2021 Dermatitis associated with moisture [L30.8] 12/04/2021 Encounter Status:Closed by CHEASTY (more content not included)... Normal [facility] CNOVon 02-05-2022 CNOV Office Visit (TXCTGL ) ZEV ALMONTEJESÚS Kate ([id number]) 1945 M TRN Date Time Provider Department 02/05/22 8:20 AM KIDNEY TXP CLINIC TXCTGL During your visit today, we recorded the following information about you: Temperature Pulse Blood pressure 96.7 degrees 79/minute 72/42 Asia Pike MD 02/05/2022 9:38 AM Signed [facility] Follow up Portions of this note [...] and snacks patient declined. Indra scale at [facility]: 166.2 lbs per patient. Bed sore on coccyx causing discomfort. Being changed regularly at [facility]- reported to be smaller around but still as deep. Patient not very up to date with medications. Patient brought paperwork from [facility] with all medications being received. Patient unsure if they have been drawing labs regularly. Last Tac from 01/19: 12.9 and K 5.9. In need of current labs. Lab orders will be sent with patient and follows as below: Kidney and Pancreas Transplant Standing Lab Orders [address] [facility] [address] [place], [place] [address] February 05, 2022 Alex Almonte 1945 [id number] STANDARD TESTING: Diagnosis Codes: Z94.0 Kidney Transplant [...] AT YOUR LABORATORY FACILITY AND FAX TO [phone]. PLEASE CALL [phone]. Provider: Dr. Pike Current Outpatient Medications Medication [...] 237 (more content not included)... Normal [facility] PROTEIN CREATININE RATIOon 1 04-08-2021 Protein/Creatinine (U) [Mass ratio] 0.10 mg/mg <0.15 mg/mg [facility] PROTIMEon 02-05-2022 INR Coag (PPP) [Relative time] 2.90 {INR} Normal [facility] Comment on above: Performed By: #### P T ####[facility] [address] [place], [place] [address]Ar. Farhat Leal INR GUIDELINES SEE BELOW Normal [facility] Comment on above: Result Comment: MALINA RED INR: 2.0 - 3.0 CONDITIONS NOT LISTED BELOW 2.5 - 3.5 FOR PROSTHETIC HEART VALVE REPLACEMENT 2.5 - 3.5 RECURRENT THROMBOSIS Performed By: #### P T ####[facility] [address] [place], [place] [address]Nn. Farhat Leal PT Coag (PPP) [Time] 29.2 s Critically high 9.0-11.6 [facility] Comment on above: Performed By: #### P T ####[facility] [address] [place] [id number]. Farhat Leal Prot/Creat Uron 02-05-2022 Protein/Creatinine (U) [Mass ratio] 0.10 mg/mg Normal <0.15 [facility] Comment on above: Order Comment: Speci men Type: URINE SPECIMENOrdering Facility: [facility] Address: [address] [place] [address] Result Comment: Adul t Proteinuria Categories: <0.15 mg/mg is considered normal to mildly increased 0.15 - 0.50 mg/mg is considered moderately increased >0.50 mg/mg is considered severely increased KDIGO. (2013). KDIGO 2012 Clinical Practice Guideline for the Evaluation and Management of Chronic Kidney Disease. Official Journal of the International Society of Nephrology, 3(1), 1-150. Performed By: #### 2 890-2 ####[facility] LABCLIA [id number] [place] [address] [place] Protein/Creatinine (U) [Mass ratio]on 02-05-2022 Creatinine (U) [Mass/Vol] 86.9 mg/dL 20.0 - 300.0 mg/dL [facility] Protein (U) [Mass/Vol] 9 mg/dL 0 - 20 mg/dL [facility] Creatinine (U) [Mass/Vol] 86.9 mg/dL Normal 20.0-300.0 [facility] Comment on above: Order Comment: Speci men Type: URINE SPECIMENOrdering Facility: [facility] Address: [address] Performed By: #### 2 890-2 ####[facility] LABCLIA [id number] [place] [address] [place] Protein (U) [Mass/Vol] 9 mg/dL Normal 0-20 Cl [facility] Comment on above: Order Comment: Speci men Type: URINE SPECIMENOrdering Facility: [facility] Address: [address] [place] [address] Performed By: #### 2 890-2 ####[facility] LABIA [id number] [place] [address] [place] URINALYSIS, DIPSTICK ONLYon 02-05-2022 Bilirubin Ql (U) Negative Normal Negative [facility] Comment on above: Order Comment: Speci men Type: URINE SPECIMEN [facility] Address: [address] Performed By: #### U A #### [facility] CLIA [id number] [address] [place] [address] [place] Clarity (Unsp spec) Clear Normal Clear [facility] Comment on above: Order Comment: Speci men Type: URINE SPECIMEN [facility] Address: [address] Performed By: #### U A #### [facility] CLIA [id number] [address] [place] [address] [place] Color (U) Yellow Normal Yellow [facility] Comment on above: Order Comment: Speci men Type: URINE SPECIMEN [facility]ing [facility]: [facility] Address: [address] Performed By: #### U A #### [facility] CLIA [id number] [address] [place] [address] [place] Glucose Test strip (U) [Mass/Vol] 3+ Abnormal Trace, Negative [facility] Comment on above: Order Comment: Speci men Type: URINE SPECIMEN [facility]: [facility] Address: [address] [place] [place] [address] Performed By: #### U A #### [facility] CLIA [id number] [address] [place] [address] [place] Hemoglobin Ql (U) Negative Normal Negative, Trace [facility] Comment on above: Order Comment: Speci men Type: URINE SPECIMEN [facility]ing [facility]: [facility] Address: [address] [place] [address] Performed By: #### U A #### [facility] CLIA [id number] [address] [place] [address] [place] Ketones Ql (U) Trace Normal Negative, Trace [facility] Comment on above: Order Comment: Speci men Type: URINE SPECIMEN [facility]ing [facility]: [facility] Address: [address] Performed By: #### U A #### [facility] CLIA [id number] [address] [place] [address] [place] Leukocyte esterase Test strip Ql (U) Negative Normal Negative, 25 Loraine/mL [facility] Comment on above: Order Comment: Speci men Type: URINE SPECIMEN [facility]ing [facility]: [facility] Address: [address] Performed By: #### U A #### [facility] CLIA [id number] [address] [place] [address] [place] Nitrite Ql (U) Negative Normal Negative [facility] Comment on above: Order Comment: Speci men Type: URINE SPECIMEN [facility]ing [facility]: [facility] Address: [address] [place] [address] Performed By: #### U A #### [facility] CLIA [id number] [address] [place] [address] [place] pH (U) 5.5 [pH] Normal 5.0-8.0 [facility] Comment on above: Order Comment: Speci men Type: URINE SPECIMEN [facility] Address: [address] [place] [address] Performed By: #### U A #### [facility] IA [id number] [address] [place] [address] [place] Protein (U) [Mass/Vol] Negative Normal Trace , Negative [facility] Comment on above: Order Comment: Speci men Type: URINE SPECIMEN [facility] Address: [address] [place] [address] Performed By: #### U A #### [facility] [place] [id number] [address] [place] [address] [place] Specific gravity (U) [Rel density] 1.014 Normal 1.005-1.030 [facility] Comment on above: Order Comment: Speci men Type: URINE SPECIMEN [facility] Address: [address] [place] [address] Performed By: #### U A #### [facility] [place] [id number] [address] [place] [address] [place] Urobilinogen Ql (U) 1+ Abnormal Negative [facility] Comment on above: Order Comment: Speci men Type: URINE SPECIMEN [facility] Address: [address] [place] [address] Performed By: #### U A #### [facility] [place] [id number] [address] [place] [address] [place] Bilirubin Ql (U) Negative Negative [facility] Clarity (Unsp spec) Clear Clear [facility] Color (U) Yellow Yellow [facility] Glucose Test strip (U) [Mass/Vol] 3+ Abnormal Trace, Negative [facility] Hemoglobin Ql (U) Negative Negative, Trace [facility] Ketones Ql (U) Trace Negative, Trace [facility] Leukocyte esterase Test strip Ql (U) Negative Negative, 25 Loraine/mL [facility] Nitrite Ql (U) Negative Negative [facility] pH (U) 5.5 [pH] 5.0 - 8.0 [facility] Protein (U) [Mass/Vol] Negative Trace , Negative [facility] Specific gravity (U) [Rel density] 1.014 1.005 - 1.030 [facility] Urobilinogen Ql (U) 1+ Abnormal Negative [facility] FK506 (TACROLIMUS) WHOLE BLO ODon 01-29-2022 Tacrolimus (FK506), Blood 11.1 ng/mL Normal 2.0-20.0 [facility] Comment on above: Result Comment: Trou gh (immediately following transplant) 15.0 . Trough (steady state, 2 weeks or more after transplant): 3.0 - 8.0 . Performed by LC-MS/MS technology. Performed By: #### F K506T ####[facility] [address] [place], [place] [address]Dr. Farhat Leal PHOSPHORUSon 01-26-2022 Phosphate [Mass/Vol] 4.1 mg/dL Normal 2.6-4.7 [facility] Comment on above: Performed By: #### C HENRI MARROQUIN ####[facility] [address] [place], [place] [address]DrSkylar Leal PROF 14(COMP METB)on 022 Albumin [Mass/Vol] 2.1 g/dL Critically low 3.4-5.0 [facility] Comment on above: Performed By: #### C HENRI MARROQUIN ####[facility] [address] [place] [address]Dr. Farhat Leal Albumin/Globulin [Mass ratio] 0.6 {ratio} Normal [facility] Comment on above: Performed By: #### C HENRI MARROQUIN ####[facility] [address] [place], [place] [address]Dr. Farhat Leal ALP [Catalytic activity/Vol] 89 U/L Normal 46-116 [facility] Comment on above: Performed By: #### C ANA MARROQUINS ####[facility] [address] [place] [address]Dr. Farhat Leal ALT [Catalytic activity/Vol] 27 U/L Normal 16-63 [facility] Comment on above: Performed By: #### C MP, PHOS ####[facility] [address] [place] [address]Dr. Farhat Leal Anion gap [Moles/Vol] 12.3 mmol/L Normal [facility] Comment on above: Performed By: #### C MP, PHOS ####[facility] [address] [place] [address]Dr. Farhat Leal AST [Catalytic activity/Vol] 53 U/L Critically high 15-37 [facility] Comment on above: Performed By: #### C CARA, PHOS ####[facility] [address] [place], [place] [address]Dr. Farhat Leal Bilirubin [Mass/Vol] 0.6 mg/dL Normal 0.2-1.0 [facility] Comment on above: Performed By: #### C CARA, PHOS ####[facility] [address] [place], [place] [address]Dr. Farhat Leal Calcium [Mass/Vol] 8.0 mg/dL Critically low 8.5-10.1 [facility] Comment on above: Performed By: #### C CARA, PHOS ####[facility] [address] [place], [place] [address]Dr. Farhat Leal Chloride [Moles/Vol] 97 mmol/L Critically low 98-107 [facility] Comment on above: Performed By: #### C MP, PHOS ####[facility] [address] [place], [place] [address]Dr. Farhat Leal CO2 [Moles/Vol] 26.6 mmol/L Normal 21.0-32.0 [facility] Comment on above: Performed By: #### C MP, PHOS ####[facility] [address] [place], [place] [address]Dr. Farhat Leal Creatinine [Mass/Vol] 1.03 mg/dL Normal 0.70-1.30 [facility] Comment on above: Performed By: #### C MP, PHOS ####[facility] [address] [place] [address]Dr. Farhat Leal EGFR-AF SYRIAN >60 Normal >=60 [facility] Comment on above: Performed By: #### C MP, PHOS ####[facility] [address] [place] [address]Dr. Farhat Leal EGFR-NON AF SYRIAN >60 Normal >=60 [facility] Comment on above: Performed By: #### C MP, PHOS ####[facility] [address] [place], [place] [address]Dr. Farhat Leal Globulin (S) [Mass/Vol] 3.7 g/dL Normal [facility] Comment on above: Performed By: #### C MP, PHOS ####[facility] [address] [place], [place] [address]Dr. Farhat Leal Glucose [Mass/Vol] 287 mg/dL Critically high 74-106 T [facility] Comment on above: Performed By: #### C CARA, PHOS ####[facility] [address] [place], [place] [address]Dr. Farhat Leal Potassium [Moles/Vol] 3.9 mmol/L Normal 3.5-5.1 [facility] Comment on above: Performed By: #### C MP, PHOS ####[facility] [address] [place], [place] [address]Dr. Farhat Leal Protein [Mass/Vol] 5.8 g/dL Critically low 6.4-8.2 Th [facility] Comment on above: Performed By: #### C MP, PHOS ####[facility] [address] [place], [place] [address]Dr. Farhat Leal Sodium [Moles/Vol] 132 mmol/L Critically low 136-145 Th [facility] Comment on above: Performed By: #### C MP, PHOS ####[facility] [address] [place], [place] [address]Dr. Farhat Leal Urea nitrogen [Mass/Vol] 23.0 mg/dL Critically high 7.0-18.0 [facility] Comment on above: Performed By: #### C HENRI MARROQUIN ####[facility] [address] [place] [address]Dr. Farhat Elvis Urea nitrogen/Creatinine [Mass ratio] 22.3 mg/mg Normal [facility] Comment on above: Performed By: #### C HENRI MARROQUIN ####[facility] [address] [place] [address]Dr. Farhat eLal FK506 (TACROLIMUS) WHOLE BLO ODon 01-21-2022 Tacrolimus (FK506), Blood 12.2 ng/mL Normal 2.0-20.0 [facility] Comment on above: Result Comment: Trou gh (immediately following transplant) 15.0 . Trough (steady state, 2 weeks or more after transplant): 3.0 - 8.0 . Performed by LC-MS/MS technology. Performed By: #### F K506T ####[facility] [address] [place] [address]Dr. Farhat Leal ACID FAST SMEAR AND CXon Acid Fast Culture Negative Normal [facility] Comment on above: Result Comment: No a abdiel fast bacilli isolated after 6 weeks. Performed By: #### A FB ####[facility] [address] [place] [address]Dr. Madelynlorri Leal Acid Fast Smear Negative Normal [facility] Comment on above: Performed By: #### A FB ####[facility] [address] [place], [place] [address]Dr. Farhat Leal [employer] Specimen Processing Tissue Grinding Normal [facility] Comment on above: Performed By: #### A FB ####[facility] [address] [place] [id number]. Farhat Hassan 01-20-2022 DIAMANTEN Telephone (KIMBERLY) ALEX ALMONTE ([id number]) 1945 M TRN Date Time Provider Department 01/20/22 VAN OLIVAREZ During your visit today, we recorded the following information about you: Van Olivarez APRN.CNP 01/20/2022 1:14 PM Signed Labs noted from yesterday. Pt is currently residing at [facility], I spoke with the Nurse, [...] by mouth daily with lunch. 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 Comment on above: Performed By: #### C MP ####[facility] [address] [place] [address]DrSkylar Leal ALP [Catalytic activity/Vol] 78 U/L Normal 46-116 [facility] Comment on above: Performed By: #### C MP ####[facility] [address] [place] [address]DrSkylar Leal ALT [Catalytic activity/Vol] 22 U/L Normal 16-63 [facility] Comment on above: Performed By: #### C MP ####[facility] [address] [place] [address]Dr. Farhat Leal Anion gap [Moles/Vol] 8.0 mmol/L Normal [facility] Comment on above: Performed By: #### C MP ####[facility] [address] [place] [address]Dr. Farhat Leal AST [Catalytic activity/Vol] 92 U/L Critically high 15-37 [facility] Comment on above: Performed By: #### C MP ####[facility] [address]kwcrdvvg[address] [place] [id number]. Farhat Elvis Bilirubin [Mass/Vol] 0.7 mg/dL Normal 0.2-1.0 [facility] Comment on above: Performed By: #### C MP ####[facility] Aoobtygybw[address] [place] [address]Dr. Farhat Leal Calcium [Mass/Vol] 7.8 mg/dL Critically low 8.5-10.1 Th e [facility] Comment on above: Performed By: #### C MP ####[facility] Oipekesone[address] [place] [address]Dr. Madelynlorri Leal Chloride [Moles/Vol] 99 mmol/L Normal 98-107 [facility] Comment on above: Performed By: #### C MP ####[facility] Ylbmifgzuc54[address] [place] [phone]. Madelynlorri Elvis CO2 [Moles/Vol] 30.9 mmol/L Normal 21.0-32.0 [facility] Comment on above: Performed By: #### C MP ####[facility] Eehpsjnnnr[address] [place] [phone]. Farhat Elvis Creatinine [Mass/Vol] 0.95 mg/dL Normal 0.70-1.30 [facility] Comment on above: Performed By: #### C MP ####[facility] Nssgpqftzv8[address] [place] [phone]. Farhat Leal EGFR-AF SYRIAN >60 Normal >=60 [facility] Comment on above: Performed By: #### C MP ####[facility] Dnslkvjnca7[address] [place] [phone]. Farhat Leal EGFR-NON AF SYRIAN >60 Normal >=60 [facility] Comment on above: Performed By: #### C MP ####[facility] Wxybwufyrl98[address] [place] [phone]. Farhat Leal Globulin (S) [Mass/Vol] 3.9 g/dL Normal [facility] Comment on above: Performed By: #### C MP ####[facility] Adnvuwtnqy17[address] [place] [address]Dr. Farhat Leal Glucose [Mass/Vol] 124 mg/dL Critically high 74-106 T [facility] Comment on above: Performed By: #### C MP ####[facility] Epvxmveeim7[address] [place] [address]Dr. Farhat Leal Potassium [Moles/Vol] 5.9 mmol/L Critically high 3.5-5.1 [facility] Comment on above: Performed By: #### C MP ####[facility] [address] [place], [place] [address]Dr. Farhat Leal Protein [Mass/Vol] 5.8 g/dL Critically low 6.4-8.2 Th [facility] Comment on above: Performed By: #### C MP ####[facility] Mtbuujndda960[address] [place], [place] [address]Dr. Farhat Leal Sodium [Moles/Vol] 132 mmol/L Critically low 136-145 Th [facility] Comment on above: Performed By: #### C MP ####[facility] Npxatidpmx24[address] [place], [place] [address]Dr. Farhat Leal Urea nitrogen [Mass/Vol] 18.0 mg/dL Normal 7.0-18.0 [facility] Comment on above: Performed By: #### C MP ####[facility] Xsfsziaidw[address] [place], [place] [address]Dr. Farhat Leal Urea nitrogen/Creatinine [Mass ratio] 18.9 mg/mg Normal [facility] Comment on above: Performed By: #### C MP ####[facility] Meliyhyaeh[address] [place] [phone]. Farhat Leal INR (POC)on 01-12-2022 INR Coag (PPP) [Relative time] 2.6 {INR} High 0.8 - 1.2 [facility] Internal Quality Check Acceptable Cl [facility] ACID FAST SMEAR AND CXon Acid Fast Culture Negative Normal The [facility] Comment on above: Result Comment: No a abdiel fast bacilli isolated after 6 weeks. Performed By: #### A FB ####[facility] [address]qw[address] [place], [place] [address]Dr. Farhat Leal Acid Fast Smear Negative Normal The [facility] Comment on above: Performed By: #### A FB ####[facility] Adnuhudjgd17[address] [place], [place] [address]Dr. Farhat Leal [employer] Specimen Processing Direct Inoculation Normal [facility] Comment on above: Performed By: #### A FB ####[facility] Ucrerfkuld8[address] [place], [place] [address]Dr. Farhat Leal ACID FAST SMEAR AND CXon Acid Fast Culture Negative Normal The [facility] Comment on above: Result Comment: No a abdiel fast bacilli isolated after 6 weeks. Performed By: #### A FB ####[facility] Hghlkkfjpg2139[address] [place], [place] [address]Dr. Farhat Leal Acid Fast Smear Negative Normal The [facility] Comment on above: Performed By: #### A FB ####[facility] Jcoominxzq6964[address] [place], [place] [address]Dr. Farhat [employer] Specimen Processing Tissue Grinding Normal [facility] Comment on above: Performed By: #### A FB ####[facility] Mzlbocmxzi12[address] [place], [place] [address]Dr. Farhat Leal FUNGAL CULTUREon 01-02-2022 Fungus (Mycology) Culture Final report Normal [facility] Comment on above: Performed By: #### C XFUN ####[facility] Cvovxhoelb20[address] [place], [place] [address]Dr. Farhat Leal Fungus Stain Final report Normal [facility] Comment on above: Performed By: #### C XFUN ####[facility] Pfwxpbgbe[address] [place] [address]. Madelynlorri Leal Result 1 Comment Normal [facility] Comment on above: Result Comment: ANNI/ Calcofluor preparation: no fungus observed. Performed By: #### C XFUN ####[facility] Nykuwptetc[address] [place], [place] [address]Dr. Farhat Leal Result Comment: No y east or mold isolated after 4 weeks. FK506 (TACROLIMUS) WHOLE BLO ODon 12-31-2021 Tacrolimus (FK506), Blood 7.7 ng/mL Normal 2.0-20.0 [facility] Comment on above: Result Comment: Trou gh (immediately following transplant) 15.0 . Trough (steady state, 2 weeks or more after transplant): 3.0 - 8.0 . Performed by LC-MS/MS technology. Performed By: #### F K506T ####[facility] Kiujjzfafa[address] [place], [place] [address]Dr. Farhat Leal HEMOGRAM AND PLATELon 2021 Hematocrit (Bld) [Volume fraction] 27.1 % Critically low 42.0-54.0 [facility] Comment on above: Performed By: #### H H ####[facility] Ebvwomrioi[address] [place] [address]. Farhat Leal Hemoglobin (Bld) [Mass/Vol] 8.7 g/dL Critically low 14.0-18.0 [facility] Comment on above: Performed By: #### H H ####[facility] [address]pxroie[address] [place], [place] [address]Dr. Farhat Leal MCH (RBC) [Entitic mass] 30.3 pg Normal 25.9-34.0 [facility] Comment on above: Performed By: #### H H ####[facility] [address]svwt[address] [place] [address]. Farhat Leal MCHC (RBC) [Mass/Vol] 32.1 g/dL Normal 29.9-35.2 [facility] Comment on above: Performed By: #### H H ####[facility] [address]rpwr[address] [place] [phone]. Farhat Leal MCV (RBC) [Entitic vol] 94.4 fL Critically high 80.0-94.0 [facility] Comment on above: Performed By: #### H H ####[facility] Dltvbkbvzu54[address] [place] [phone]. Farhat Leal PLT 355 103/ul Normal 150-450 [facility] Comment on above: Performed By: #### H H ####[facility] Kddmndocwz1205 [place] [phone]. Farhat Leal RBC 2.87 106/ul Critically low 4.70-6.10 [facility] Comment on above: Performed By: #### H H ####[facility] Bpvzgzduhj4240 [place] [address]Dr. Farhat Leal WBC 6.0 103/ul Normal 4.0-11.0 [facility] Comment on above: Performed By: #### H H ####[facility] Aeeisomaov[address] [place] [address]Dr. Farhat Leal PHOSPHORUSon 12-29-2021 Phosphate [Mass/Vol] 2.5 mg/dL Critically low 2.6-4.7 [facility] Comment on above: Performed By: #### P HOS, CMP ####[facility] Yvhxhpcuzp[address] [place] [address]Dr. Farhat Elvis PROF 14(COMP METB)on 022 Albumin [Mass/Vol] 1.7 g/dL Critically low 3.4-5.0 [facility] Comment on above: Performed By: #### P HOS, CMP ####[facility] Ykrrvnluuv5[address] [place] [address]Dr. Farhat Leal Albumin/Globulin [Mass ratio] 0.5 {ratio} Normal [facility] Comment on above: Performed By: #### P HOS, CMP ####[facility] Mebgciyasv[address] [place] [address]Dr. Farhat Leal ALP [Catalytic activity/Vol] 78 U/L Normal 46-116 [facility] Comment on above: Performed By: #### P HOS, CMP ####[facility] Rnnnzutijj8[address] [place] [address]Dr. Farhat Leal ALT [Catalytic activity/Vol] 12 U/L Critically low 16-63 [facility] Comment on above: Performed By: #### P HOS, CMP ####[facility] Rgpofpdrfz7[address] [place] [address]Dr. Farhat Leal Anion gap [Moles/Vol] 5.1 mmol/L Normal [facility] Comment on above: Performed By: #### P HOS, CMP ####[facility] Pfkekdbybh[address] [place], [place] [address]Dr. Farhat Leal AST [Catalytic activity/Vol] 22 U/L Normal 15-37 [facility] Comment on above: Performed By: #### P HOS, CMP ####[facility] K[address]ndbfyij[address] [place], [place] [address]Dr. Farhat Leal Bilirubin [Mass/Vol] 0.6 mg/dL Normal 0.2-1.0 [facility] Comment on above: Performed By: #### P HOS, CMP ####[facility] Thgpabxcut26[address] [place], [place] [address]Dr. Farhat Leal Calcium [Mass/Vol] 8.1 mg/dL Critically low 8.5-10.1 Th e [facility] Comment on above: Performed By: #### P HOS, CMP ####[facility] Eebweoodtw[address] [place], [place] [address]Dr. Farhat Leal Chloride [Moles/Vol] 100 mmol/L Normal 98-107 [facility] Comment on above: Performed By: #### P HOS, CMP ####[facility] Dnlvrvnfcz[address] [place], [place] [address]Dr. Farhat Leal CO2 [Moles/Vol] 34.2 mmol/L Critically high 21.0-32.0 [facility] Comment on above: Performed By: #### P HOS, CMP ####[facility] X[address]chsuwrvi[address] [place], [place] [address]Dr. Farhat Leal Creatinine [Mass/Vol] 0.92 mg/dL Normal 0.70-1.30 [facility] Comment on above: Performed By: #### P HOS, CMP ####[facility] T[address]khwc28[address] [place] [phone]. Farhat Leal EGFR-AF SYRIAN >60 Normal >=60 [facility] Comment on above: Performed By: #### P HOS, CMP ####[facility] Mubqcdeqtl2303 [place] [address]Dr. Farhat Leal EGFR-NON AF SYRIAN >60 Normal >=60 [facility] Comment on above: Performed By: #### P HOS, CMP ####[facility] Oivqqxheds4331 [place] [phone]. Farhat Leal Globulin (S) [Mass/Vol] 3.3 g/dL Normal [facility] Comment on above: Performed By: #### P HOS, CMP ####[facility] Yufryjbdzz6167 [place] [address]Dr. Farhat Elvis Glucose [Mass/Vol] 116 mg/dL Critically high 74-106 [facility] Comment on above: Performed By: #### P HOS, CMP ####[facility] Inizmlvhty6793 [place] [phone]. Farhat Elvis Potassium [Moles/Vol] 3.3 mmol/L Critically low 3.5-5.1 [facility] Comment on above: Performed By: #### P HOS, CMP ####[facility] Bsykahsbjg17[address] [place] [phone]. Farhat Elvis Protein [Mass/Vol] 5.0 g/dL Critically low 6.4-8.2 Th [facility] Comment on above: Performed By: #### P HOS, CMP ####[facility] Llbpbeywfy5995 [place] [address]Dr. Farhat Leal Sodium [Moles/Vol] 136 mmol/L Normal 136-145 [facility] Comment on above: Performed By: #### P HOS, CMP ####[facility] Twhfsevdkf8697 [place] [phone]. Farhat Elvis Urea nitrogen [Mass/Vol] 14.0 mg/dL Normal 7.0-18.0 [facility] Comment on above: Performed By: #### P HOS, CMP ####[facility] Tvijanwrcr[address] [place], [place] [address]Dr. Farhat Leal Urea nitrogen/Creatinine [Mass ratio] 15.2 mg/mg Normal [facility] Comment on above: Performed By: #### P HOS, CMP ####[facility] Tnezruzdax58[address] [place], [place] [address]Dr. Farhat Leal PROTIMEon 12-29-2021 INR Coag (PPP) [Relative time] 1.26 {INR} Normal [facility] Comment on above: Performed By: #### P T ####[facility] Hasxpgoqqr132[address] [place], [place] [address]Dr. Farhat Leal INR GUIDELINES SEE BELOW Normal [facility] Comment on above: Result Comment: MALINA RED INR: 2.0 - 3.0 CONDITIONS NOT LISTED BELOW 2.5 - 3.5 FOR PROSTHETIC HEART VALVE REPLACEMENT 2.5 - 3.5 RECURRENT THROMBOSIS Performed By: #### P T ####[facility] Cixhyrbnxg[address] [place], [place] [address]Dr. Farhat Leal PT Coag (PPP) [Time] 13.4 s Critically high 9.0-11.6 [facility] Comment on above: Performed By: #### P T ####[facility] Elyyymbaso06[address] [place], [place] [address]Dr. Farhat Leal XR MODIFIED BARIUM SWALLOWon 12-25-2021 XR MODIFIED BARIUM SWALLOW Normal [facility] FUNGAL CULTUREon 12-24-2021 Fungus (Mycology) Culture Final report Normal [facility] Comment on above: Performed By: #### C XFUN ####[facility] Yfxdzdaspm[address] [place], [place] [address]Dr. Farhat Leal Fungus Stain Final report Normal [facility] Comment on above: Performed By: #### C XFUN ####[facility] Hcfveqedhj[address] [place], [place] [address]Dr. Farhat Leal Result 1 Comment Normal [facility] Comment on above: Result Comment: ANNI/ Calcofluor preparation: no fungus observed. Performed By: #### C XFUN ####[facility] Vypauxbrkh[address] [place] [address]Dr. Madelynlorri Leal Result Comment: No y east or mold isolated after 4 weeks. VANCOMYCIN TROUGHon 12-21-19 VANCOMYCIN TROUGH 14.4 ug/ml Normal 5.0-20.0 [facility] Comment on above: Performed By: #### V ANCT ####[facility] Gzlxypxaay[address] [place], [place] [address]Dr. Farhat Leal CBC AUTO DIFFon 12-14-2021 BASO # 0.0 103/ul Normal 0.0-0.1 [facility] Comment on above: Performed By: #### C BC ####[facility] Prkqdsvdci[address] [place], [place] [address]Dr. Farhat Leal Basophils/100 WBC (Bld) 0.2 % Normal 0.2-2.0 [facility] Comment on above: Performed By: #### C BC ####[facility] Ycviknzial2176[address] [place], [place] [address]Dr. Farhat Leal EO # 0.2 103/ul Normal 0.0-0.7 [facility] Comment on above: Performed By: #### C BC ####[facility] Drqivujmdb220[address] [place], [place] [address]Dr. Farhat Leal Eosinophils/100 WBC (Bld) 2.1 % Normal 0.9-7.0 [facility] Comment on above: Performed By: #### C BC ####[facility] Hexvrevkrb6[address] [place], [place] [address]Dr. Farhat Leal Erythrocyte distribution width (RBC) [Ratio] 18.2 % Critically high 11.0-15.0 [facility] Comment on above: Performed By: #### C BC ####[facility] Jicyzfarat[address] [place], [place] [address]Dr. Farhat Leal Hematocrit (Bld) [Volume fraction] 25.8 % Critically low 42.0-54.0 [facility] Comment on above: Performed By: #### C BC ####[facility] Uoszgbmxcj9243 [place] [address]Dr. Farhat Leal Hemoglobin (Bld) [Mass/Vol] 8.0 g/dL Critically low 14.0-18.0 [facility] Comment on above: Performed By: #### C BC ####[facility] Cjxxanabps1348 [place] [address]Dr. Farhat Leal IG # 0.08 10e3/ul Critically high 0.00-0.03 [facility] Comment on above: Performed By: #### C BC ####[facility] Ymodmiuhdx3548 [place] [address]Dr. Farhat Leal IG % 0.7 % Critically high 0.0-0.5 The [facility] Comment on above: Performed By: #### C BC ####[facility] Hfxzrltkau[address] [place] [address]Dr. Farhat Leal LYMPH # 0.9 103/ul Critically low 1.2-3.8 [facility] Comment on above: Performed By: #### C BC ####[facility] Arggdtkawm4[address] [place] [address]Dr. Farhat Leal Lymphocytes/100 WBC (Bld) 8.7 % Critically low 20.5-60.0 [facility] Comment on above: Performed By: #### C BC ####[facility] Mhshnctkvh[address] [place] [address]Dr. Farhat Leal MANUAL DIFF REQ NO Normal The [facility] Comment on above: Performed By: #### C BC ####[facility] Pdenrnvjgw1038 [place] [address]Dr. Farhat Leal MCH (RBC) [Entitic mass] 30.0 pg Normal 25.9-34.0 [facility] Comment on above: Performed By: #### C BC ####[facility] Qgqydfwvwo[address] [place], [place] [address]Dr. Farhat Leal MCHC (RBC) [Mass/Vol] 31.0 g/dL Normal 29.9-35.2 [facility] Comment on above: Performed By: #### C BC ####[facility] Lajfyfydeh[address] [place] [phone]. Farhat Leal MCV (RBC) [Entitic vol] 96.6 fL Critically high 80.0-94.0 [facility] Comment on above: Performed By: #### C BC ####[facility] Xbbuxjejnf1287 [place] [phone]. Farhat Leal MONO # 0.7 103/ul Normal 0.3-0.8 [facility] Comment on above: Performed By: #### C BC ####[facility] Ltfbzgtzqc3268 [place] [address]Dr. Farhat Leal Monocytes/100 WBC (Bld) 6.7 % Normal 1.7-12.0 [facility] Comment on above: Performed By: #### C BC ####[facility] Qhfgjlybfq98[address] [place], [place] [address]Dr. Farhat Leal NEUT # 8.8 103/ul Critically high 1.4-6.5 The [facility] Comment on above: Performed By: #### C BC ####[facility] Thwoohxiuy9[address] [place], [place] [address]Dr. Farhat Leal Neutrophils/100 WBC (Bld) 81.6 % Critically high 43.0-75.0 [facility] Comment on above: Performed By: #### C BC ####[facility] Ldpivpmgjo1470 [place] [address]Dr. Farhat Leal Platelet mean volume (Bld) [Entitic vol] 10.5 fL Normal 9.5-13.5 [facility] Comment on above: Performed By: #### C BC ####[facility] Wmkpdxchyg3058 [place] [phone]. Farhat Leal PLT 285 103/ul Normal 150-450 [facility] Comment on above: Performed By: #### C BC ####[facility] Stoamyyinj3138 [place] [phone]. Farhat Elvis RBC 2.67 106/ul Critically low 4.70-6.10 The [facility] Comment on above: Performed By: #### C BC ####[facility] Iudyiesnto58[address] [place] [address]Dr. Farhat Elvis WBC 10.7 103/ul Normal 4.0-11.0 [facility] Comment on above: Performed By: #### C BC ####[facility] C[address]xyoqxjgc[address] [place], [place] [address]Dr. Farhat Elvis PROF CHEM 8 (BAS METB)on Anion gap [Moles/Vol] 12.4 mmol/L Normal [facility] Comment on above: Performed By: #### B MP ####[facility] [address]vlljwqhn9[address] [place], [place] [address]Dr. Farhat Leal Calcium [Mass/Vol] 7.8 mg/dL Critically low 8.5-10.1 [facility] Comment on above: Performed By: #### B MP ####[facility] Tzmeezqkat20[address] [place], [place] [address]Dr. Farhat Leal Chloride [Moles/Vol] 102 mmol/L Normal 98-107 [facility] Comment on above: Performed By: #### B MP ####[facility] Jhuydagepf[address] [place], [place] [address]Dr. Farhat Leal CO2 [Moles/Vol] 28.1 mmol/L Normal 21.0-32.0 [facility] Comment on above: Performed By: #### B MP ####[facility] Buquskcosy[address] [place], [place] [address]Dr. Farhat Leal Creatinine [Mass/Vol] 1.24 mg/dL Normal 0.70-1.30 [facility] Comment on above: Performed By: #### B MP ####[facility] Jqtubpdhha[address] [place], [place] [address]Dr. Farhat Leal EGFR-AF SYRIAN >60 Normal >=60 [facility] Comment on above: Performed By: #### B MP ####[facility] Ndyinsikol14[address] [place], [place] [address]Dr. Farhat Leal EGFR-NON AF SYRIAN 57 mL/min/1.73m2 Critically low >=60 [facility] Comment on above: Performed By: #### B MP ####[facility] Aoejrwpuuy6825 [place] [phone]. Farhat Leal Glucose [Mass/Vol] 296 mg/dL Critically high 74-106 T [facility] Comment on above: Performed By: #### B MP ####[facility] Fiqhgphbgw1694 [place] [phone]. Farhat Leal Potassium [Moles/Vol] 3.5 mmol/L Normal 3.5-5.1 [facility] Comment on above: Performed By: #### B MP ####[facility] Zdxatnopqb1029 [place] [address]Dr. Farhat Leal Sodium [Moles/Vol] 139 mmol/L Normal 136-145 [facility] Comment on above: Performed By: #### B MP ####[facility] Emjeiwwkvs7108 [place] [address]Dr. Farhat Leal Urea nitrogen [Mass/Vol] 27.0 mg/dL Critically high 7.0-18.0 [facility] Comment on above: Performed By: #### B MP ####[facility] Symtltggio75[address] [place], [place] [address]Dr. Farhat Leal Urea nitrogen/Creatinine [Mass ratio] 21.8 mg/mg Normal [facility] Comment on above: Performed By: #### B MP ####[facility] Pcitokvilk[address] [place] [address]Dr. Farhat Leal PROTIMEon 12-14-2021 INR Coag (PPP) [Relative time] 3.36 {INR} Normal [facility] Comment on above: Performed By: #### P T ####[facility] Xtjztkoopb3439 [place] [phone]. Farhat Leal INR GUIDELINES SEE BELOW Normal [facility] Comment on above: Result Comment: MALINA RED INR: 2.0 - 3.0 CONDITIONS NOT LISTED BELOW 2.5 - 3.5 FOR PROSTHETIC HEART VALVE REPLACEMENT 2.5 - 3.5 RECURRENT THROMBOSIS Performed By: #### P T ####[facility] G[address]vnceqxi[address] [place], [place] [address]Dr. Farhat Leal PT Coag (PPP) [Time] 33.5 s Critically high 9.0-11.6 [facility] Comment on above: Performed By: #### P T ####[place] [address] [place] [address]DrSkylar Leal XR CHEST 1 Von 12-14-2021 XR CHEST 1 V Normal [facility] No Panel Informationon 12-01 BLANK _ [facility] Implant Date 04/22/2012 [facility] CHECKon AMS Duration (ms) 5 of 8 [facility] AMS Fallback Rate (bpm) DDIR [facility] AV Delay Adaptive Paced Minimum (ms) 300 ms [facility] AV Delay Adaptive Rate Maximum (bpm) 130 {beats}/min [facility] AV Delay Adaptive Rate Minimum (bpm) 70 {beats}/min [facility] AV Delay Adaptive Sensed Minimum (ms) 300 ms [facility] AV Delay Paced (ms) [address] [facility] AV Delay Sensed (ms) 300 ms [facility] Jaciel LV Pacing Polarity Unknown [facility] Jaciel LV Sensing Polarity Unknown [facility] Jaciel RA Pacing Amplitude (volts) 2.4 V [facility] Jaciel RA Pacing Polarity BI [facility] Jaciel RA Pacing Pulse Width (ms) 0.4 ms [facility] Jaciel RA Sensing Amplitude (mvolts) AUTO [facility] Jaciel RA Sensing Blanking Period (ms) 56 ms [facility] Jaciel RA Sensing Polarity BI [facility] Jaciel RA Sensing Refractory Period (ms) AUTO [facility] Jaciel RV Pacing Amplitude (volts) 3.4 V [facility] Jaciel RV Pacing Polarity BI [facility] Jaciel RV Pacing Pulse Width (ms) 0.4 ms [facility] Jaciel RV Sensing Amplitude (mvolts) AUTO [facility] Jaciel RV Sensing Blanking Period (ms) 30 ms [facility] Jaciel RV Sensing Polarity BI [facility] Jaciel RV Sensing Refractory Period (ms) 250 ms [facility] Hysteresis Rate (bpm) 60 {beats}/min [facility] Lead1 Mfg SUZETTE [facility] Lead2 Mfg SUZETTE [facility] Location RA [facility] Location RV [facility] Lower Rate (bpm) 60 {beats}/min [facility] Max Sensor Rate (bmp) 130 {beats}/min [facility] Model 789170 Monika Dominguez [facility] Model 517187 [facility] Model 249172 [facility] Pac[facility] Dependent? NO [facility] PM-Device Mfg BIO [facility] PM-PMT Intervention ON [facility] PM-PVC Intervention ON [facility] PM-Rate Modulation Acceleration Reaction 4 s [facility] PM-Rate Modulation Deceleration 0.5 m [facility] PM-Rate Modulation Fallon 23 [facility] PM-Rate Modulation Threshold Medium [facility] RA Bipolar Impedance ohms 448 ohm [facility] Rhythm AF with controlled ventricular rate. [facility] RV Bipolar Impedance ohms 390 ohm [facility] Serial Number [id number] [facility] Serial Number [id number] [facility] Serial Number [id number] [facility] Thresh RA Sensing Amplitude (mvolts) 2.4 mV [facility] Thresh RV Capture Amplitude (volts) 1.8 V [facility] Thresh RV Capture Duration (ms) 0.4 ms [facility] Thresh RV Sensing Amplitude (mvolts) 2.4 mV [facility] Tracking Rate (bpm) 160 {beats}/min [facility] BNPon 11-28-2021 Natriuretic peptide B (Bld) [Mass/Vol] 41909.0 pg/mL Critically high <=1,800.0 [facility] Comment on above: Performed By: #### C MP, BNP, CRP ####[facility] L[address] [place], [place] [address]DrSkylar Leal CBC AUTO DIFFon 11-28-2021 BASO # 0.0 103/ul Normal 0.0-0.1 [facility] Comment on above: Performed By: #### C BC ####[facility] Dfznuaplek7[address] [place], [place] [address]Dr. Farhat Leal Basophils/100 WBC (Bld) 0.3 % Normal 0.2-2.0 [facility] Comment on above: Performed By: #### C BC ####[facility] Fehkkgotkf[address] [place], [place] [address]DrSkylar Leal EO # 0.1 103/ul Normal 0.0-0.7 [facility] Comment on above: Performed By: #### C BC ####[facility] Jlcgjygbpa[address] [place], [place] [address]DrSkylar Leal Eosinophils/100 WBC (Bld) 1.0 % Normal 0.9-7.0 [facility] Comment on above: Performed By: #### C BC ####[facility] [address] [place] [address]Dr. Farhat Leal Erythrocyte distribution width (RBC) [Ratio] 14.0 % Normal 11.0-15.0 [facility] Comment on above: Performed By: #### C BC ####[facility] Knrwmumpae5[address] [place], [place] [address]Dr. Farhat Leal Hematocrit (Bld) [Volume fraction] 27.6 % Critically low 42.0-54.0 [facility] Comment on above: Performed By: #### C BC ####[facility] Bdqglisziu2814[address] [place], [place] [address]Dr. Farhat Leal Hemoglobin (Bld) [Mass/Vol] 9.0 g/dL Critically low 14.0-18.0 [facility] Comment on above: Performed By: #### C BC ####[facility] Oiwyrtiakp[address] [place], [place] [address]Dr. Farhat Leal IG # 0.12 10e3/ul Critically high 0.00-0.03 [facility] Comment on above: Performed By: #### C BC ####[facility] Lkxblqhwwe[address] [place], [place] [address]Dr. Farhat Leal IG % 1.0 % Critically high 0.0-0.5 The [facility] Comment on above: Performed By: #### C BC ####[facility] Vuludbgdvr[address] [place], [place] [address]Dr. Farhat Leal LYMPH # 1.2 103/ul Normal 1.2-3.8 [facility] Comment on above: Performed By: #### C BC ####[facility] Egblpconfq3838[address] [place], [place] [address]Dr. Farhat Leal Lymphocytes/100 WBC (Bld) 9.9 % Critically low 20.5-60.0 [facility] Comment on above: Performed By: #### C BC ####[facility] Oaiojbkzpu99[address] [place], [place] [address]Dr. Madelynlorri Leal MANUAL DIFF REQ NO Normal The [facility] Comment on above: Performed By: #### C BC ####[facility] [address]qcyx[address] [place] [address]Dr. Farhat Elvis MCH (RBC) [Entitic mass] 30.0 pg Normal 25.9-34.0 [facility] Comment on above: Performed By: #### C BC ####[facility] Otltufzkif7127[address] [place], [place] [address]Dr. Farhat Elvis MCHC (RBC) [Mass/Vol] 32.6 g/dL Normal 29.9-35.2 [facility] Comment on above: Performed By: #### C BC ####[facility] Mbwtohwstz027[address] [place], [place] [address]Dr. Farhat Leal MCV (RBC) [Entitic vol] 92.0 fL Normal 80.0-94.0 [facility] Comment on above: Performed By: #### C BC ####[facility] Lbqaguugcl13[address] [place], [place] [address]Dr. Farhat Leal MONO # 1.1 103/ul Critically high 0.3-0.8 The [facility] Comment on above: Performed By: #### C BC ####[facility] Itzklwmmlq[address] [place], [place] [address]Dr. Farhat Leal Monocytes/100 WBC (Bld) 9.3 % Normal 1.7-12.0 [facility] Comment on above: Performed By: #### C BC ####[facility] Dragyrgfhe4579[address] [place], [place] [address]Dr. Farhat Leal NEUT # 9.3 103/ul Critically high 1.4-6.5 The [facility] Comment on above: Performed By: #### C BC ####[facility] Gcdjktpvic1987[address] [place], [place] [address]Dr. Farhat Leal Neutrophils/100 WBC (Bld) 78.5 % Critically high 43.0-75.0 [facility] Comment on above: Performed By: #### C BC ####[facility] On[address] [place], [place] [id number]. Farhat Leal Platelet mean volume (Bld) [Entitic vol] 9.6 fL Normal 9.5-13.5 [facility] Comment on above: Performed By: #### C BC ####[facility] [address] [place] [address]Dr. Farhat Leal PLT 357 103/ul Normal 150-450 [facility] Comment on above: Performed By: #### C BC ####[facility] F[address]unkd[address] [place] [address]Dr. Farhat Leal RBC 3.00 106/ul Critically low 4.70-6.10 [facility] Comment on above: Performed By: #### C BC ####[facility] P[address]mq[address] [place] [address]Dr. Farhat Leal WBC 11.8 103/ul Critically high 4.0-11.0 [facility] Comment on above: Performed By: #### C BC ####[facility] I[address]ypn7[address] [place], [place] [address]Dr. Farhat Leal CRPon 11-28-2021 CRP 20.9 mg/dL Critically high <=1.0 [facility] Comment on above: Performed By: #### C MP, BNP, CRP ####[facility] [address] [place] [address]Dr. Farhat Leal CULTURE OTHERon 11-28-2021 CULTURE OTHER Normal The [facility] Comment on above: Performed By: #### O THCX ####[facility] [address] [place] [address]Dr. Farhat Leal CULTURE OTHER Normal [facility] Comment on above: Performed By: #### O THCX ####[facility] Gvaxdvlarz[address] [place], [place] [address]Dr. Farhat Leal PROF 14(COMP METB)on 022 Albumin [Mass/Vol] 1.4 g/dL Critically low 3.4-5.0 Th [facility] Comment on above: Performed By: #### C MP, BNP, CRP ####[facility] [address]ws[address] [place] [address]Dr. Farhat Leal Albumin/Globulin [Mass ratio] 0.4 {ratio} Normal [facility] Comment on above: Performed By: #### C MP, BNP, CRP ####[facility] [address] [place] [address]Dr. Farhat Leal ALP [Catalytic activity/Vol] 82 U/L Normal 46-116 [facility] Comment on above: Performed By: #### C MP, BNP, CRP ####[facility] Romqmiludk[address] [place] [address]Dr. Farhat Elvis ALT [Catalytic activity/Vol] 20 U/L Normal 16-63 [facility] Comment on above: Performed By: #### C MP, BNP, CRP ####[facility] Nimzeyamkw5083[address] [place], [place] [address]Dr. Madelynlorri Leal Anion gap [Moles/Vol] 13.0 mmol/L Normal [facility] Comment on above: Performed By: #### C MP, BNP, CRP ####[facility] Wyfibtlhpu20[address] [place], [place] [address]Dr. Farhat Leal AST [Catalytic activity/Vol] 33 U/L Normal 15-37 [facility] Comment on above: Performed By: #### C MP, BNP, CRP ####[facility] Igytpfkjng469[address] [place], [place] [address]Dr. Madelynlorri Leal Bilirubin [Mass/Vol] 0.7 mg/dL Normal 0.2-1.0 [facility] Comment on above: Performed By: #### C MP, BNP, CRP ####[facility] Ogvfxkaxcm2219[address] [place], [place] [address]Dr. Madelynlorri Leal Calcium [Mass/Vol] 8.4 mg/dL Critically low 8.5-10.1 [facility] Comment on above: Performed By: #### C MP, BNP, CRP ####[facility] Jhiacacidx6399[address] [place], [place] [address]Dr. Farhat Leal Chloride [Moles/Vol] 100 mmol/L Normal 98-107 [facility] Comment on above: Performed By: #### C MP, BNP, CRP ####[facility] T[address]co[address] [place] [address]Dr. Farhat Elvis CO2 [Moles/Vol] 23.7 mmol/L Normal 21.0-32.0 [facility] Comment on above: Performed By: #### C MP, BNP, CRP ####[facility] Ovofv[address]wua[address] [place] [address]Dr. Farhat Elvis Creatinine [Mass/Vol] 1.70 mg/dL Critically high 0.70-1.30 [facility] Comment on above: Performed By: #### C MP, BNP, CRP ####[facility] Crewvltitu2667[address] [place], [place] [address]Dr. Farhat Elvis EGFR-AF SYRIAN 48 mL/min/1.73m2 Critically low >=60 [facility] Comment on above: Performed By: #### C MP, BNP, CRP ####[facility] Qlwkacdfeh034[address] [place], [place] [address]Dr. Farhat Leal EGFR-NON AF SYRIAN 39 mL/min/1.73m2 Critically low >=60 [facility] Comment on above: Performed By: #### C MP, BNP, CRP ####[facility] Bnoidpqahs5119[address] [place], [place] [address]Dr. Farhat Leal Globulin (S) [Mass/Vol] 3.6 g/dL Normal [facility] Comment on above: Performed By: #### C MP, BNP, CRP ####[facility] Agydioiedn8[address] [place], [place] [address]Dr. Madelynlorri Elvis Glucose [Mass/Vol] 232 mg/dL Critically high 74-106 T [facility] Comment on above: Performed By: #### C MP, BNP, CRP ####[facility] Kjplwvzjsz57[address] [place], [place] [address]Dr. Farhat Leal Potassium [Moles/Vol] 3.7 mmol/L Normal 3.5-5.1 [facility] Comment on above: Performed By: #### C MP, BNP, CRP ####[facility] Rexytoxadr2527[address] [place], [place] [address]Dr. Farhat Leal Protein [Mass/Vol] 5.0 g/dL Critically low 6.4-8.2 Th [facility] Comment on above: Performed By: #### C MP, BNP, CRP ####[facility] Rqtkqyvkyg46[address] [place] [address]Dr. Farhat Leal Sodium [Moles/Vol] 133 mmol/L Critically low 136-145 Th [facility] Comment on above: Performed By: #### C MP, BNP, CRP ####[facility] Qrmppizsfw7317[address] [place], [place] [address]Dr. Farhat Leal Urea nitrogen [Mass/Vol] 52.0 mg/dL Critically high 7.0-18.0 [facility] Comment on above: Performed By: #### C MP, BNP, CRP ####[facility] Gutqdcnegf[address] [place], [place] [address]Dr. Farhat Leal Urea nitrogen/Creatinine [Mass ratio] 30.6 mg/mg Normal [facility] Comment on above: Performed By: #### C MP, BNP, CRP ####[facility] Llvaszikwm9[address] [place], [place] [address]Dr. Farhat Leal PROTIMEon 11-28-2021 INR Coag (PPP) [Relative time] 1.29 {INR} Normal [facility] Comment on above: Performed By: #### P T ####[facility] Atmbvckvyx6727[address] [place], [place] [address]Dr. Farhat Leal INR GUIDELINES SEE BELOW Normal [facility] Comment on above: Result Comment: MALINA RED INR: 2.0 - 3.0 CONDITIONS NOT LISTED BELOW 2.5 - 3.5 FOR PROSTHETIC HEART VALVE REPLACEMENT 2.5 - 3.5 RECURRENT THROMBOSIS Performed By: #### P T ####[facility] Flkbcqcprm[address] [place], [place] [address]Dr. Farhat Leal PT Coag (PPP) [Time] 13.7 s Critically high 9.0-11.6 [facility] Comment on above: Performed By: #### P T ####[facility] Izpteluxch20[address] [place], [place] [address]Dr. Farhat Leal SED RATE WESTERGRENon 2021 SED RATE 77 mm/hr Critically high <=20 The [facility] Comment on above: Performed By: #### S EDR ####[facility] Zbkibsycyt37[address] [place], [place] [address]Dr. Farhat Leal XR CHEST 2 Von 11-28-2021 XR CHEST 2 V Normal [facility] BNPon 11-27-2021 Natriuretic peptide B (Bld) [Mass/Vol] 09916.0 pg/mL Critically high <=1,800.0 [facility] Comment on above: Performed By: #### B CARGO CHECKER, CMP, CRP ####[facility] Mqxcbsbzkn8[address] [place], [place] [address]Dr. Farhat Leal CBC AUTO DIFFon 11-27-2021 BASO # 0.0 103/ul Normal 0.0-0.1 [facility] Comment on above: Performed By: #### C BC ####[facility] Sjmgkeaitm7[address] [place], [place] [address]Dr. Farhat Leal Basophils/100 WBC (Bld) 0.2 % Normal 0.2-2.0 [facility] Comment on above: Performed By: #### C BC ####[facility] Mqdveayyoc7[address] [place], [place] [address]Dr. Farhat Leal EO # 0.2 103/ul Normal 0.0-0.7 [facility] Comment on above: Performed By: #### C BC ####[facility] Tbcukstsku1866[address] [place], [place] [address]Dr. Farhat Leal Eosinophils/100 WBC (Bld) 1.9 % Normal 0.9-7.0 [facility] Comment on above: Performed By: #### C BC ####[facility] Kwtexocasa9013[address] [place], [place] [address]Dr. Farhat Leal Erythrocyte distribution width (RBC) [Ratio] 13.9 % Normal 11.0-15.0 [facility] Comment on above: Performed By: #### C BC ####[facility] Svldsnzefw[address] [place], [place] [address]Dr. Farhat Leal Hematocrit (Bld) [Volume fraction] 28.7 % Critically low 42.0-54.0 [facility] Comment on above: Performed By: #### C BC ####[facility] [address]lehv[address] [place] [address]DrSkylar Leal Hemoglobin (Bld) [Mass/Vol] 9.3 g/dL Critically low 14.0-18.0 [facility] Comment on above: Performed By: #### C BC ####[facility] [address]av[address]ew[address] [place] [address]DrSkylar Leal IG # 0.14 10e3/ul Critically high 0.00-0.03 [facility] Comment on above: Performed By: #### C BC ####[facility] Fnbcmrgchn[address] [place] [address]DrSkylar Leal IG % 1.2 % Critically high 0.0-0.5 [facility] Comment on above: Performed By: #### C BC ####[facility] Xqqrafscgh3[address] [place], [place] [address]DrSkylar Leal LYMPH # 1.1 103/ul Critically low 1.2-3.8 [facility] Comment on above: Performed By: #### C BC ####[facility] Optyucziip7084[address] [place], [place] [address]DrSkylar Leal Lymphocytes/100 WBC (Bld) 9.4 % Critically low 20.5-60.0 [facility] Comment on above: Performed By: #### C BC ####[facility] [address] [place] [address]DrSkylar Leal MANUAL DIFF REQ NO Normal The [facility] Comment on above: Performed By: #### C BC ####[facility] Cyokbaamsa[address] [place] [address]DrSkylar Leal MCH (RBC) [Entitic mass] 29.7 pg Normal 25.9-34.0 [facility] Comment on above: Performed By: #### C BC ####[facility] [address]pf[address]wovb[address] [place] [address]DrSkylar Leal MCHC (RBC) [Mass/Vol] 32.4 g/dL Normal 29.9-35.2 [facility] Comment on above: Performed By: #### C BC ####[facility] Xyqoolltlt6498 [place] [address]DrSkylar Leal MCV (RBC) [Entitic vol] 91.7 fL Normal 80.0-94.0 [facility] Comment on above: Performed By: #### C BC ####[facility] Z[address]zjxdepen[address] [place], [place] [address]DrSkylar Leal MONO # 1.1 103/ul Critically high 0.3-0.8 The [facility] Comment on above: Performed By: #### C BC ####[facility] W[address]ymwlegnb13[address] [place], [place] [address]DrSkylar Leal Monocytes/100 WBC (Bld) 9.7 % Normal 1.7-12.0 [facility] Comment on above: Performed By: #### C BC ####[facility] Ikclpyvqtf0037[address] [place], [place] [address]Dr. Farhat Leal NEUT # 9.2 103/ul Critically high 1.4-6.5 The [facility] Comment on above: Performed By: #### C BC ####[facility] K[address]lyewhxhl[address] [place], [place] [address]DrSkylar Leal Neutrophils/100 WBC (Bld) 77.6 % Critically high 43.0-75.0 [facility] Comment on above: Performed By: #### C BC ####[facility] Oxlfzybiss[address] [place], [place] [address]DrSkylar Leal Platelet mean volume (Bld) [Entitic vol] 9.5 fL Normal 9.5-13.5 [facility] Comment on above: Performed By: #### C BC ####[facility] Nyjvnuyuav[address] [place], [place] [address]DrSkylar Leal PLT 375 103/ul Normal 150-450 [facility] Comment on above: Performed By: #### C BC ####[facility] Qauynmtktq9592[address] [place], [place] [address]DrSkylar Leal RBC 3.13 106/ul Critically low 4.70-6.10 [facility] Comment on above: Performed By: #### C BC ####[facility] Eatfzzmmmn[address] [place] [address]Dr. Farhat Leal WBC 11.8 103/ul Critically high 4.0-11.0 [facility] Comment on above: Performed By: #### C BC ####[facility] [address]ew[address]tlx[address] [place] [address]Dr. Madelynlorri Elvis CRPon 11-27-2021 CRP 24.5 mg/dL Critically high <=1.0 [facility] Comment on above: Performed By: #### B CARGO CHECKER, CMP, CRP ####[facility] Glxwqnamxv[address] [place], [place] [address]Dr. Madelynlorri Leal CULTURE OTHERon 11-27-2021 CULTURE OTHER Normal [facility] Comment on above: Performed By: #### O THCX ####[facility] [address]rmjcqvjl[address] [place], [place] [address]Dr. Madelynlorri Leal CULTURE OTHER Normal [facility] Comment on above: Performed By: #### O THCX ####[facility] Lyvozhrrsu[address] [place], [place] [address]Dr. Farhat Leal CULTURE WOUNDon 11-27-2021 CULTURE WOUND Normal [facility] Comment on above: Performed By: #### W OUNDCX ####[facility] Feysdtnzte98[address] [place], [place] [address]Dr. Farhat Leal POINT OF CARE GLUCOSEon 11-15 Glucose [Mass/Vol] 147 mg/dL Critically high 74-106 [facility] Comment on above: Performed By: #### P OCGLUC ####[facility] Ryoegqbkoc96[address] [place], [place] [address]Dr. Farhat Leal PROF 14(COMP METB)on 022 Albumin [Mass/Vol] 1.4 g/dL Critically low 3.4-5.0 [facility] Comment on above: Performed By: #### B CARGO CHECKER, CMP, CRP ####[facility] Aeiqdwkijd67[address] [place], [place] [address]Dr. Farhat Leal Albumin/Globulin [Mass ratio] 0.4 {ratio} Normal [facility] Comment on above: Performed By: #### B CARGO CHECKER, CMP, CRP ####[facility] Easkqgfxex[address]25[address] [place], [place] [address]Dr. Farhat Leal ALP [Catalytic activity/Vol] 82 U/L Normal 46-116 [facility] Comment on above: Performed By: #### B CARGO CHECKER, CMP, CRP ####[facility] Bfwyeawjla00[address] [place], [place] [address]Dr. Farhat Leal ALT [Catalytic activity/Vol] 22 U/L Normal 16-63 [facility] Comment on above: Performed By: #### B CARGO CHECKER, CMP, CRP ####[facility] Iotunwdkwn08[address] [place], [place] [address]Dr. Farhat Leal Anion gap [Moles/Vol] 14.2 mmol/L Normal [facility] Comment on above: Performed By: #### B CARGO CHECKER, CMP, CRP ####[facility] Huykpzhejd[address] [place], [place] [address]Dr. Farhat Leal AST [Catalytic activity/Vol] 35 U/L Normal 15-37 [facility] Comment on above: Performed By: #### B CARGO CHECKER, CMP, CRP ####[facility] Jdidatshjo[address] [place], [place] [address]Dr. Farhat Elvis Bilirubin [Mass/Vol] 0.7 mg/dL Normal 0.2-1.0 [facility] Comment on above: Performed By: #### B CARGO CHECKER, CMP, CRP ####[facility] U[address]jot[address] [place], [place] [address]Dr. Farhat Elvis Calcium [Mass/Vol] 8.2 mg/dL Critically low 8.5-10.1 [facility] Comment on above: Performed By: #### B CARGO CHECKER, CMP, CRP ####[facility] [address]ou[address] [place], [place] [address]Dr. Farhat Leal Chloride [Moles/Vol] 99 mmol/L Normal 98-107 [facility] Comment on above: Performed By: #### B CARGO CHECKER, CMP, CRP ####[facility] [address] [place] [address]Dr. Farhat Leal CO2 [Moles/Vol] 22.6 mmol/L Normal 21.0-32.0 [facility] Comment on above: Performed By: #### B CARGO CHECKER, CMP, CRP ####[facility] [address] [place] [address]Dr. Farhat Leal Creatinine [Mass/Vol] 1.73 mg/dL Critically high 0.70-1.30 [facility] Comment on above: Performed By: #### B CARGO CHECKER, CMP, CRP ####[facility] [address] [place] [address]Dr. Farhat Elvis EGFR-AF SYRIAN 47 mL/min/1.73m2 Critically low >=60 [facility] Comment on above: Performed By: #### B CARGO CHECKER, CMP, CRP ####[facility] Boralbibkx34[address] [place], [place] [address]Dr. Farhat Leal EGFR-NON AF SYRIAN 38 mL/min/1.73m2 Critically low >=60 [facility] Comment on above: Performed By: #### B CARGO CHECKER, CMP, CRP ####[facility] Bnxxraopdn9[address] [place], [place] [address]Dr. Farhat Leal Globulin (S) [Mass/Vol] 3.7 g/dL Normal [facility] Comment on above: Performed By: #### B CARGO CHECKER, CMP, CRP ####[facility] [address] [place] [address]Dr. Madelynlorri Elvis Glucose [Mass/Vol] 220 mg/dL Critically high 74-106 T [facility] Comment on above: Performed By: #### B CARGO CHECKER, CMP, CRP ####[facility] Mqozcplkvf[address] [place], [place] [address]Dr. Farhat Leal Potassium [Moles/Vol] 3.8 mmol/L Normal 3.5-5.1 [facility] Comment on above: Performed By: #### B CARGO CHECKER, CMP, CRP ####[facility] Hwxhfhmqkb[address] [place], [place] [address]Dr. Madelynlorri Leal Protein [Mass/Vol] 5.1 g/dL Critically low 6.4-8.2 Th [facility] Comment on above: Performed By: #### B CARGO CHECKER, CMP, CRP ####[facility] [address] [place] [address]Dr. Farhat Leal Sodium [Moles/Vol] 132 mmol/L Critically low 136-145 Th [facility] Comment on above: Performed By: #### B CARGO CHECKER, CMP, CRP ####[facility] Nkxyknjhoy[address] [place], [place] [address]Dr. Farhat Leal Urea nitrogen [Mass/Vol] 49.0 mg/dL Critically high 7.0-18.0 [facility] Comment on above: Performed By: #### B CARGO CHECKER, CMP, CRP ####[facility] Mciapmjmqs12[address] [place], [place] [address]Dr. Farhat Leal Urea nitrogen/Creatinine [Mass ratio] 28.3 mg/mg Normal [facility] Comment on above: Performed By: #### B CARGO CHECKER, CMP, CRP ####[facility] Yzxbfwoswu[address] [place], [place] [address]Dr. Farhat Leal PROTIMEon 11-27-2021 INR Coag (PPP) [Relative time] 1.25 {INR} Normal [facility] Comment on above: Performed By: #### P T ####[facility] Mhrschbvbb[address] [place], [place] [address]Dr. Farhat Leal INR GUIDELINES SEE BELOW Normal [facility] Comment on above: Result Comment: MALINA RED INR: 2.0 - 3.0 CONDITIONS NOT LISTED BELOW 2.5 - 3.5 FOR PROSTHETIC HEART VALVE REPLACEMENT 2.5 - 3.5 RECURRENT THROMBOSIS Performed By: #### P T ####[facility] Ysmhanvesf[address] [place], [place] [address]Dr. Farhat Leal PT Coag (PPP) [Time] 13.3 s Critically high 9.0-11.6 [facility] Comment on above: Performed By: #### P T ####[facility] Waayzkkvpz206[address] [place], [place] [address]Dr. Farhat Leal SED RATE TEXARKANAERGRENon 2021 SED RATE 60 mm/hr Critically high <=20 The [facility] Comment on above: Performed By: #### S EDR ####[facility] Mzctdeopnk[address] [place], [place] [address]Dr. Farhat Leal VANCOMYCIN TROUGHon 11-28-19 22 VANCOMYCIN TROUGH 21.2 ug/ml Critically high 5.0-20.0 Th e [facility] Comment on above: Performed By: #### V ANCT ####[facility] Ntqwpbetcr[address] [place], [place] [address]Dr. Farhat Leal XR CHEST 1 Von 11-27-2021 XR CHEST 1 V Normal [facility] BNPon 11-26-2021 Natriuretic peptide B (Bld) [Mass/Vol] 92854.0 pg/mL Critically high <=1,800.0 [facility] Comment on above: Performed By: #### B CARGO CHECKER, CRP, CMP ####[facility] Wxtvdhgomk8[address] [place], [place] [address]Dr. Farhat Leal CBC AUTO DIFFon 11-26-2021 BASO # 0.0 103/ul Normal 0.0-0.1 [facility] Comment on above: Performed By: #### C BC ####[facility] Tlczogoonw[address] [place], [place] [address]Dr. Farhat Leal Basophils/100 WBC (Bld) 0.2 % Normal 0.2-2.0 [facility] Comment on above: Performed By: #### C BC ####[facility] Pnkvkjwnpe13[address] [place], [place] [address]Dr. Farhat Leal EO # 0.0 103/ul Normal 0.0-0.7 [facility] Comment on above: Performed By: #### C BC ####[facility] Hfgimpbqfa1765[address] [place], [place] [address]Dr. Farhat Leal Eosinophils/100 WBC (Bld) 0.3 % Critically low 0.9-7.0 [facility] Comment on above: Performed By: #### C BC ####[facility] Etbyidifgx2583[address] [place], [place] [address]Dr. Farhat Leal Erythrocyte distribution width (RBC) [Ratio] 13.9 % Normal 11.0-15.0 [facility] Comment on above: Performed By: #### C BC ####[facility] [address] [place] [address]Dr. Madelynlorri Elvis Hematocrit (Bld) [Volume fraction] 27.3 % Critically low 42.0-54.0 [facility] Comment on above: Performed By: #### C BC ####[facility] Oslqgfdsmq2007[address] [place], [place] [address]Dr. Farhat Leal Hemoglobin (Bld) [Mass/Vol] 8.8 g/dL Critically low 14.0-18.0 [facility] Comment on above: Performed By: #### C BC ####[facility] Ulnygbelly[address] [place], [place] [address]Dr. Farhat Leal IG # 0.17 10e3/ul Critically high 0.00-0.03 [facility] Comment on above: Performed By: #### C BC ####[facility] Ruucvkdabh[address] [place], [place] [address]Dr. Farhat Leal IG % 1.2 % Critically high 0.0-0.5 The [facility] Comment on above: Performed By: #### C BC ####[facility] Ttnhrocahj[address] [place], [place] [address]DrSkylar Leal LYMPH # 0.7 103/ul Critically low 1.2-3.8 [facility] Comment on above: Performed By: #### C BC ####[facility] Eqruxdsdnh5838[address] [place], [place] [address]DrSkylar Leal Lymphocytes/100 WBC (Bld) 4.8 % Critically low 20.5-60.0 [facility] Comment on above: Performed By: #### C BC ####[facility] Sprbzmoevm[address] [place], [place] [address]DrSkylar Leal MANUAL DIFF REQ NO Normal The [facility] Comment on above: Performed By: #### C BC ####[facility] Flctfplpdk3239[address] [place], [place] [address]DrSkylar Leal MCH (RBC) [Entitic mass] 29.9 pg Normal 25.9-34.0 [facility] Comment on above: Performed By: #### C BC ####[facility] [address]vt[address]av[address] [place] [address]Dr. Farhat Leal MCHC (RBC) [Mass/Vol] 32.2 g/dL Normal 29.9-35.2 [facility] Comment on above: Performed By: #### C BC ####[facility] Ije[address]qhqgby18[address] [place], [place] [address]Dr. Farhat Leal MCV (RBC) [Entitic vol] 92.9 fL Normal 80.0-94.0 [facility] Comment on above: Performed By: #### C BC ####[facility] Cgcypuxtwi64[address] [place], [place] [address]Dr. Farhat Elvis MONO # 1.3 103/ul Critically high 0.3-0.8 The [facility] Comment on above: Performed By: #### C BC ####[facility] Yysvtzgrfe[address] [place], [place] [address]Dr. Madelynlorri Leal Monocytes/100 WBC (Bld) 9.6 % Normal 1.7-12.0 [facility] Comment on above: Performed By: #### C BC ####[facility] Rtxdfgroow9[address] [place], [place] [address]Dr. Farhat Leal NEUT # 11.4 103/ul Critically high 1.4-6.5 The [facility] Comment on above: Performed By: #### C BC ####[facility] Rvzdzccpii[address] [place], [place] [address]Dr. Madelynlorri Leal Neutrophils/100 WBC (Bld) 83.9 % Critically high 43.0-75.0 [facility] Comment on above: Performed By: #### C BC ####[facility] Mwvduhorvq6[address] [place], [place] [address]Dr. Farhat Elvis Platelet mean volume (Bld) [Entitic vol] 9.6 fL Normal 9.5-13.5 [facility] Comment on above: Performed By: #### C BC ####[facility] [address] [place] [id number]. Farhat Leal PLT 395 103/ul Normal 150-450 [facility] Comment on above: Performed By: #### C BC ####[facility] [address] [place] [address]Dr. Farhat Leal RBC 2.94 106/ul Critically low 4.70-6.10 The [facility] Comment on above: Performed By: #### C BC ####[facility] [address]fvis[address] [place] [address]Dr. Farhat Leal WBC 13.6 103/ul Critically high 4.0-11.0 The [facility] Comment on above: Performed By: #### C BC ####[facility] Dyixzgfgrb14[address] [place], [place] [address]Dr. Farhat Leal CRPon 11-26-2021 CRP [Mass/Vol] mg/L Critically high <=1.0 [facility] Comment on above: Performed By: #### B CARGO CHECKER, CRP, CMP ####[facility] [address]otywn[address] [place], [place] [address]Dr. Farhat Elvis PROF 14(COMP METB)on 022 Albumin [Mass/Vol] 1.5 g/dL Critically low 3.4-5.0 [facility] Comment on above: Performed By: #### B CARGO CHECKER, CRP, CMP ####[facility] [address] [place] [address]Dr. Farhat Leal Albumin/Globulin [Mass ratio] 0.4 {ratio} Normal [facility] Comment on above: Performed By: #### B CARGO CHECKER, CRP, CMP ####[facility] [address] [place] [address]Dr. Farhat Leal ALP [Catalytic activity/Vol] 88 U/L Normal 46-116 [facility] Comment on above: Performed By: #### B CARGO CHECKER, CRP, CMP ####[facility] [address]it[address] [place] [address]Dr. Farhat Leal ALT [Catalytic activity/Vol] 29 U/L Normal 16-63 [facility] Comment on above: Performed By: #### B CARGO CHECKER, CRP, CMP ####[facility] [address]atjwp[address] [place] [address]Dr. Farhat Leal Anion gap [Moles/Vol] 13.3 mmol/L Normal [facility] Comment on above: Performed By: #### B CARGO CHECKER, CRP, CMP ####[facility] Ivyrtaxwgv[address] [place] [address]Dr. Farhat Leal AST [Catalytic activity/Vol] 32 U/L Normal 15-37 [facility] Comment on above: Performed By: #### B CARGO CHECKER, CRP, CMP ####[facility] [address]arrvw[address] [place] [address]Dr. Farhat Leal Bilirubin [Mass/Vol] 0.6 mg/dL Normal 0.2-1.0 [facility] Comment on above: Performed By: #### B CARGO CHECKER, CRP, CMP ####[facility] Trzziceviy9817[address] [place], [place] [address]Dr. Farhat Leal Calcium [Mass/Vol] 8.0 mg/dL Critically low 8.5-10.1 [facility] Comment on above: Performed By: #### B CARGO CHECKER, CRP, CMP ####[facility] C[address]kkyqvxr[address] [place], [place] [address]Dr. Farhat Leal Chloride [Moles/Vol] 98 mmol/L Normal 98-107 [facility] Comment on above: Performed By: #### B CARGO CHECKER, CRP, CMP ####[facility] [address]om[address] [place] [address]Dr. Farhat Leal CO2 [Moles/Vol] 23.7 mmol/L Normal 21.0-32.0 [facility] Comment on above: Performed By: #### B CARGO CHECKER, CRP, CMP ####[facility] X[address]pvymf[address] [place], [place] [address]Dr. Farhat Leal Creatinine [Mass/Vol] 2.08 mg/dL Critically high 0.70-1.30 [facility] Comment on above: Performed By: #### B CARGO CHECKER, CRP, CMP ####[facility] Cxswwsgjuq67[address] [place], [place] [address]Dr. Farhat Leal EGFR-AF SYRIAN 38 mL/min/1.73m2 Critically low >=60 [facility] Comment on above: Performed By: #### B CARGO CHECKER, CRP, CMP ####[facility] [address]vh[address] [place] [address]Dr. Farhat Leal EGFR-NON AF SYRIAN 31 mL/min/1.73m2 Critically low >=60 [facility] Comment on above: Performed By: #### B CARGO CHECKER, CRP, CMP ####[facility] F[address]wbfo[address] [place] [address]Dr. Farhat Leal Globulin (S) [Mass/Vol] 3.7 g/dL Normal [facility] Comment on above: Performed By: #### B CARGO CHECKER, CRP, CMP ####[facility] Dxlhppdkho0535[address] [place], [place] [address]Dr. Farhat Leal Glucose [Mass/Vol] 315 mg/dL Critically high 74-106 T [facility] Comment on above: Performed By: #### B CARGO CHECKER, CRP, CMP ####[facility] Id[address]bpwksrc8[address] [place], [place] [address]Dr. Farhat Leal Potassium [Moles/Vol] 4.0 mmol/L Normal 3.5-5.1 [facility] Comment on above: Performed By: #### B CARGO CHECKER, CRP, CMP ####[facility] Pjknhkhlwn[address] [place], [place] [address]Dr. Farhat Leal Protein [Mass/Vol] 5.2 g/dL Critically low 6.4-8.2 Th [facility] Comment on above: Performed By: #### B CARGO CHECKER, CRP, CMP ####[facility] Arifgdctms9[address] [place], [place] [address]Dr. Farhat Leal Sodium [Moles/Vol] 131 mmol/L Critically low 136-145 Th [facility] Comment on above: Performed By: #### B CARGO CHECKER, CRP, CMP ####[facility] [address] [place] [address]Dr. Farhat Leal Urea nitrogen [Mass/Vol] 50.0 mg/dL Critically high 7.0-18.0 [facility] Comment on above: Performed By: #### B CARGO CHECKER, CRP, CMP ####[facility] Qshctcsdrb[address] [place] [address]Dr. Farhat Leal Urea nitrogen/Creatinine [Mass ratio] 24.0 mg/mg Normal [facility] Comment on above: Performed By: #### B CARGO CHECKER, CRP, CMP ####[facility] X[address]ibkw[address] [place] [address]Dr. Farhat Leal PROTIMEon 11-26-2021 INR Coag (PPP) [Relative time] 1.31 {INR} Normal [facility] Comment on above: Performed By: #### P T ####[facility] Cf[address]vpxoopj9[address] [place], [place] [address]Dr. Farhat Leal INR GUIDELINES SEE BELOW Normal [facility] Comment on above: Result Comment: MALINA RED INR: 2.0 - 3.0 CONDITIONS NOT LISTED BELOW 2.5 - 3.5 FOR PROSTHETIC HEART VALVE REPLACEMENT 2.5 - 3.5 RECURRENT THROMBOSIS Performed By: #### P T ####[facility] Tshmhxhlze[address] [place], [place] [address]Dr. Farhat Leal PT Coag (PPP) [Time] 13.9 s Critically high 9.0-11.6 [facility] Comment on above: Performed By: #### P T ####[facility] L[address]hcofjj[address] [place], [place] [address]Dr. Farhat Leal SED RATE [facility] 2021 SED RATE 87 mm/hr Critically high <=20 The [facility] Comment on above: Performed By: #### S EDR ####[facility] Rxterlbmai16[address] [place], [place] [address]Dr. Farhat Leal BNPon 11-25-2021 Natriuretic peptide B (Bld) [Mass/Vol] 53097.0 pg/mL Critically high <=1,800.0 [facility] Comment on above: Performed By: #### C MP, BNP, CRP ####[facility] Wasbxqjdak[address] [place], [place] [address]Dr. Farhat Leal CBC AUTO DIFFon 11-25-2021 BASO # 0.0 103/ul Normal 0.0-0.1 The [facility] Comment on above: Performed By: #### C BC ####[facility] [address]so[address] [place] [address]Dr. Farhat Leal Basophils/100 WBC (Bld) 0.4 % Normal 0.2-2.0 [facility] Comment on above: Performed By: #### C BC ####[facility] [address] [place] [address]Dr. Farhat Leal EO # 0.1 103/ul Normal 0.0-0.7 [facility] Comment on above: Performed By: #### C BC ####[facility] [address]zbjh[address] [place], [place] [address]Dr. Farhat Leal Eosinophils/100 WBC (Bld) 1.2 % Normal 0.9-7.0 [facility] Comment on above: Performed By: #### C BC ####[facility] Wprpnxetxt40[address] [place], [place] [address]Dr. Farhat Leal Erythrocyte distribution width (RBC) [Ratio] 13.7 % Normal 11.0-15.0 [facility] Comment on above: Performed By: #### C BC ####[facility] Ev[address]tsyougv[address] [place], [place] [address]Dr. Farhat Leal Hematocrit (Bld) [Volume fraction] 29.6 % Critically low 42.0-54.0 [facility] Comment on above: Performed By: #### C BC ####[facility] Of[address]jgdbih63[address] [place], [place] [address]Dr. Farhat Leal Hemoglobin (Bld) [Mass/Vol] 9.3 g/dL Critically low 14.0-18.0 [facility] Comment on above: Performed By: #### C BC ####[facility] Cnisrvdevs05[address] [place], [place] [address]Dr. Farhat Leal IG # 0.15 10e3/ul Critically high 0.00-0.03 [facility] Comment on above: Performed By: #### C BC ####[facility] Pwlxpbzlei37[address] [place], [place] [address]Dr. Farhat Leal IG % 1.4 % Critically high 0.0-0.5 The [facility] Comment on above: Performed By: #### C BC ####[facility] [address]ty[address]ibmhg[address] [place] [address]Dr. Farhat Leal LYMPH # 0.8 103/ul Critically low 1.2-3.8 [facility] Comment on above: Performed By: #### C BC ####[facility] [address]uwjdxvjs[address] [place] [address]Dr. Farhat Leal Lymphocytes/100 WBC (Bld) 7.3 % Critically low 20.5-60.0 [facility] Comment on above: Performed By: #### C BC ####[facility] Tmeynjcynp[address] [place], [place] [address]DrSkylar Leal MANUAL DIFF REQ NO Normal [facility] Comment on above: Performed By: #### C BC ####[facility] Qsxurpzsys4[address] [place], [place] [address]Dr. Farhat Leal MCH (RBC) [Entitic mass] 29.3 pg Normal 25.9-34.0 [facility] Comment on above: Performed By: #### C BC ####[facility] W[address]ublwtyf97[address] [place], [place] [address]Dr. Farhat Leal MCHC (RBC) [Mass/Vol] 31.4 g/dL Normal 29.9-35.2 [facility] Comment on above: Performed By: #### C BC ####[facility] Ar[address]vcikpz[address] [place], [place] [address]Dr. Farhat Leal MCV (RBC) [Entitic vol] 93.4 fL Normal 80.0-94.0 [facility] Comment on above: Performed By: #### C BC ####[facility] Qiijtlvgzx[address] [place], [place] [address]DrSkylar Leal MONO # 1.3 103/ul Critically high 0.3-0.8 The [facility] Comment on above: Performed By: #### C BC ####[facility] [address]wlfot[address] [place] [address]Dr. Farhat Leal Monocytes/100 WBC (Bld) 12.3 % Critically high 1.7-12.0 [facility] Comment on above: Performed By: #### C BC ####[facility] [address]kmthibqrv22[address] [place] [address]Dr. Farhat Leal NEUT # 8.4 103/ul Critically high 1.4-6.5 The [facility] Comment on above: Performed By: #### C BC ####[facility] Zrfythkjmr2441 [place] [address]DrSkylar Leal Neutrophils/100 WBC (Bld) 77.4 % Critically high 43.0-75.0 [facility] Comment on above: Performed By: #### C BC ####[facility] Qdnchpuzva20[address] [place], [place] [address]Dr. Farhat Leal Platelet mean volume (Bld) [Entitic vol] 9.8 fL Normal 9.5-13.5 [facility] Comment on above: Performed By: #### C BC ####[facility] T[address]kvcpocz6[address] [place], [place] [address]Dr. Farhat Leal PLT 390 103/ul Normal 150-450 [facility] Comment on above: Performed By: #### C BC ####[facility] Gipbxlrdlb[address] [place], [place] [address]Dr. Farhat Leal RBC 3.17 106/ul Critically low 4.70-6.10 The [facility] Comment on above: Performed By: #### C BC ####[facility] Wpfctuxcze[address] [place], [place] [address]DrSkylar Leal WBC 10.9 103/ul Normal 4.0-11.0 [facility] Comment on above: Performed By: #### C BC ####[facility] Ultetfhadq2[address] [place], [place] [address]DrSkylar Leal CRPon 11-25-2021 CRP 27.2 mg/dL Critically high <=1.0 The [facility] Comment on above: Performed By: #### C MP, BNP, CRP ####[facility] M[address]jguvhr[address] [place], [place] [address]Dr. Farhat Leal PROF 14(COMP METB)on 022 Albumin [Mass/Vol] 1.5 g/dL Critically low 3.4-5.0 [facility] Comment on above: Performed By: #### C MP, BNP, CRP ####[facility] [address]xy[address] [place] [address]Dr. Farhat Leal Albumin/Globulin [Mass ratio] 0.4 {ratio} Normal [facility] Comment on above: Performed By: #### C MP, BNP, CRP ####[facility] [address]awhqoxc[address] [place] [address]Dr. Farhat Leal ALP [Catalytic activity/Vol] 86 U/L Normal 46-116 [facility] Comment on above: Performed By: #### C MP, BNP, CRP ####[facility] [address]wkjnszwj39[address] [place] [address]Dr. Farhat Leal ALT [Catalytic activity/Vol] 34 U/L Normal 16-63 [facility] Comment on above: Performed By: #### C MP, BNP, CRP ####[facility] [address]stfjngto39[address] [place] [address]Dr. Farhat Leal Anion gap [Moles/Vol] 17.8 mmol/L Normal [facility] Comment on above: Performed By: #### C MP, BNP, CRP ####[facility] Dbryrctyke[address] [place] [address]Dr. Farhat Leal AST [Catalytic activity/Vol] 48 U/L Critically high 15-37 [facility] Comment on above: Performed By: #### C MP, BNP, CRP ####[facility] [address] [place] [address]Dr. Farhat Leal Bilirubin [Mass/Vol] 0.8 mg/dL Normal 0.2-1.0 [facility] Comment on above: Performed By: #### C MP, BNP, CRP ####[facility] [address] [place] [address]Dr. Farhat Leal Calcium [Mass/Vol] 8.3 mg/dL Critically low 8.5-10.1 [facility] Comment on above: Performed By: #### C MP, BNP, CRP ####[facility] [address]ok[address] [place] [address]Dr. Farhat Leal Chloride [Moles/Vol] 97 mmol/L Critically low 98-107 [facility] Comment on above: Performed By: #### C MP, BNP, CRP ####[facility] [address]keqs[address] [place] [address]Dr. Farhat Leal CO2 [Moles/Vol] 23.0 mmol/L Normal 21.0-32.0 [facility] Comment on above: Performed By: #### C MP, BNP, CRP ####[facility] [address]unf[address]ayum[address] [place], [place] [address]Dr. Madelynlorri Elvis Creatinine [Mass/Vol] 1.68 mg/dL Critically high 0.70-1.30 [facility] Comment on above: Performed By: #### C MP, BNP, CRP ####[facility] Kdronpkjas[address] [place], [place] [address]Dr. Madelynlorri Elvis EGFR-AF SYRIAN 48 mL/min/1.73m2 Critically low >=60 [facility] Comment on above: Performed By: #### C MP, BNP, CRP ####[facility] Ohutiwlklh64[address] [place], [place] [address]Dr. Farhat Elvis EGFR-NON AF SYRIAN 40 mL/min/1.73m2 Critically low >=60 [facility] Comment on above: Performed By: #### C MP, BNP, CRP ####[facility] Abvpjfqdhk[address] [place], [place] [address]Dr. Farhat Elvis Globulin (S) [Mass/Vol] 3.9 g/dL Normal [facility] Comment on above: Performed By: #### C MP, BNP, CRP ####[facility] Gaocfntfsj6[address] [place], [place] [address]Dr. Farhat Leal Glucose [Mass/Vol] 282 mg/dL Critically high 74-106 T [facility] Comment on above: Performed By: #### C MP, BNP, CRP ####[facility] Flupweyrbo16[address] [place], [place] [address]Dr. Farhat Leal Potassium [Moles/Vol] 4.8 mmol/L Normal 3.5-5.1 [facility] Comment on above: Performed By: #### C MP, BNP, CRP ####[facility] Njrmwqzzvm[address] [place], [place] [address]Dr. Farhat Leal Protein [Mass/Vol] 5.4 g/dL Critically low 6.4-8.2 Th [facility] Comment on above: Performed By: #### C MP, BNP, CRP ####[facility] Irrexfyfbe[address] [place], [place] [address]Dr. Farhat Leal Sodium [Moles/Vol] 133 mmol/L Critically low 136-145 Th [facility] Comment on above: Performed By: #### C MP, BNP, CRP ####[facility] Gqgaicwgjn2[address] [place], [place] [address]Dr. Farhat Leal Urea nitrogen [Mass/Vol] 40.0 mg/dL Critically high 7.0-18.0 [facility] Comment on above: Performed By: #### C MP, BNP, CRP ####[facility] Xdugrolppu7[address] [place], [place] [address]Dr. Farhat Leal Urea nitrogen/Creatinine [Mass ratio] 23.8 mg/mg Normal [facility] Comment on above: Performed By: #### C MP, BNP, CRP ####[facility] Hoslzzdhio329[address] [place], [place] [address]Dr. Farhat Leal PROTIMEon 11-25-2021 INR Coag (PPP) [Relative time] 1.48 {INR} Normal [facility] Comment on above: Performed By: #### P T ####[facility] Etxzihzsvd04[address] [place], [place] [address]Dr. Farhat Leal INR GUIDELINES SEE BELOW Normal [facility] Comment on above: Result Comment: MALINA RED INR: 2.0 - 3.0 CONDITIONS NOT LISTED BELOW 2.5 - 3.5 FOR PROSTHETIC HEART VALVE REPLACEMENT 2.5 - 3.5 RECURRENT THROMBOSIS Performed By: #### P T ####[facility] Thmsuwrngs[address] [place], [place] [address]Dr. Farhat Leal PT Coag (PPP) [Time] 15.6 s Critically high 9.0-11.6 [facility] Comment on above: Performed By: #### P T ####[facility] Tpnhfyggra4483[address] [place], [place] [address]Dr. Farhat Leal SED RATE WESTERGRENon 2021 SED RATE 76 mm/hr Critically high <=20 The [facility] Comment on above: Performed By: #### S EDR ####[facility] Guqcfbnmgz366[address] [place], [place] [address]Dr. Farhat Leal BNPon 11-24-2021 Natriuretic peptide B (Bld) [Mass/Vol] 05575.0 pg/mL Critically high <=1,800.0 [facility] Comment on above: Performed By: #### B CARGO CHECKER, CMP, CRP ####[facility] Enqvgfpwdw10[address] [place], [place] [address]Dr. Farhat Leal CBC AUTO DIFFon 11-24-2021 BASO # 0.0 103/ul Normal 0.0-0.1 [facility] Comment on above: Performed By: #### C BC ####[facility] Cidzdbbiwx3586[address] [place], [place] [address]Dr. Madelynlorri Leal Basophils/100 WBC (Bld) 0.3 % Normal 0.2-2.0 [facility] Comment on above: Performed By: #### C BC ####[facility] Wlcbxzkxkd056[address] [place], [place] [address]Dr. Farhat Leal EO # 0.2 103/ul Normal 0.0-0.7 [facility] Comment on above: Performed By: #### C BC ####[facility] Gvunuhvrrs267[address] [place], [place] [address]Dr. Madelynlorri Leal Eosinophils/100 WBC (Bld) 1.2 % Normal 0.9-7.0 [facility] Comment on above: Performed By: #### C BC ####[facility] Kzvtrnmywt65[address] [place], [place] [address]Dr. Farhat Leal Erythrocyte distribution width (RBC) [Ratio] 13.5 % Normal 11.0-15.0 [facility] Comment on above: Performed By: #### C BC ####[facility] [address] [place] [address]Dr. Farhat Leal Hematocrit (Bld) [Volume fraction] 31.1 % Critically low 42.0-54.0 [facility] Comment on above: Performed By: #### C BC ####[facility] [address] [place] [address]Dr. Farhat Leal Hemoglobin (Bld) [Mass/Vol] 10.0 g/dL Critically low 14.0-18.0 [facility] Comment on above: Performed By: #### C BC ####[facility] Iwzuipjrxx[address] [place], [place] [address]Dr. Farhat Leal IG # 0.13 10e3/ul Critically high 0.00-0.03 [facility] Comment on above: Performed By: #### C BC ####[facility] H[address]qrhvtez36[address] [place], [place] [address]DrSkylar Leal IG % 1.0 % Critically high 0.0-0.5 [facility] Comment on above: Performed By: #### C BC ####[facility] Xkenxenrlr25[address] [place], [place] [address]DrSkylar Leal LYMPH # 0.7 103/ul Critically low 1.2-3.8 [facility] Comment on above: Performed By: #### C BC ####[facility] Tsiatvflsd70[address] [place], [place] [address]DrSkylar Leal Lymphocytes/100 WBC (Bld) 4.9 % Critically low 20.5-60.0 [facility] Comment on above: Performed By: #### C BC ####[facility] Zxfwwumhpy7[address] [place], [place] [address]DrSkylar Leal MANUAL DIFF REQ NO Normal The [facility] Comment on above: Performed By: #### C BC ####[facility] Hzpnyqbtvl6397[address] [place], [place] [address]DrSkylar Leal MCH (RBC) [Entitic mass] 29.6 pg Normal 25.9-34.0 [facility] Comment on above: Performed By: #### C BC ####[facility] [address] [place] [id number]. Farhat Elvis MCHC (RBC) [Mass/Vol] 32.2 g/dL Normal 29.9-35.2 [facility] Comment on above: Performed By: #### C BC ####[facility] [address] [place] [id number] Leal MCV (RBC) [Entitic vol] 92.0 fL Normal 80.0-94.0 [facility] Comment on above: Performed By: #### C BC ####[facility] Lov[address]ajwcd[address] [place] [address]DrSkylar Leal MONO # 1.3 103/ul Critically high 0.3-0.8 The [facility] Comment on above: Performed By: #### C BC ####[facility] Yehcxqwvuv[address] [place], [place] [address]DrSkylar Leal Monocytes/100 WBC (Bld) 9.6 % Normal 1.7-12.0 [facility] Comment on above: Performed By: #### C BC ####[facility] Reaxqzgfjb414[address] [place], [place] [address]DrSkylar Leal NEUT # 11.2 103/ul Critically high 1.4-6.5 [facility] Comment on above: Performed By: #### C BC ####[facility] Nmykofsrzg[address] [place], [place] [address]DrSkylar Leal Neutrophils/100 WBC (Bld) 83.0 % Critically high 43.0-75.0 [facility] Comment on above: Performed By: #### C BC ####[facility] [address] [place], [place] [id number] Leal Platelet mean volume (Bld) [Entitic vol] 9.5 fL Normal 9.5-13.5 [facility] Comment on above: Performed By: #### C BC ####[facility] Y[address] [place], [place] [address]DrSkylar Leal PLT 395 103/ul Normal 150-450 [facility] Comment on above: Performed By: #### C BC ####[facility] [address] [place] [address]Dr. Farhat Leal RBC 3.38 106/ul Critically low 4.70-6.10 [facility] Comment on above: Performed By: #### C BC ####[facility] Z[address]qvblr[address] [place] [address]Dr. Farhat Leal WBC 13.4 103/ul Critically high 4.0-11.0 [facility] Comment on above: Performed By: #### C BC ####[facility] [address]fgt[address] [place] [address]Dr. Farhat Leal CRPon 11-24-2021 CRP 27.8 mg/dL Critically high <=1.0 [facility] Comment on above: Performed By: #### B CARGO CHECKER, CMP, CRP ####[facility] [address] [place] [phone]. Farhat Leal CULTURE ANAEROBICon 11-25-19 22 CULTURE ANAEROBIC Culture Observations : NO GROWTH OF ANAEROBES AT 72 HOURS. [facility] Comment on above: Performed By: #### A NACX ####[facility] [address] [place] [phone]. Farhat Leal CULTURE ANAEROBIC Culture Observations : NO GROWTH OF ANAEROBES AT 72 HOURS. Normal [facility] Comment on above: Performed By: #### A NACX ####[facility] [address] [place] [phone]. Farhat Leal CULTURE ANAEROBIC Culture Observations : No growth of anaerobes at 72 hours. [facility] Comment on above: Performed By: #### A NACX ####[facility] Rsrdnlxdlr67[address] [place] [phone]. Farhat Leal CULTURE ANAEROBIC Culture Observations : No growth of anaerobes at 72 hours. [facility] Comment on above: Performed By: #### A NACX ####[facility] [address]psjqvrol25[address] [place] [phone]. Farhat Leal CULTURE URINEon 10-10-2022 CULTURE URINE Culture Observations : NO GROWTH. Normal [facility] Comment on above: Performed By: #### U RCX ####[facility] R[address]xrgaommf[address] [place], [place] [address]Dr. Farhat Leal ECHOCARDIO M/2D COMPLETEon 1 ECHOCARDIO M/2D COMPLETE Normal [facility] ER URINE PROFILEon Bilirubin Ql (U) Negative Normal NEGATIVE The [facility] Comment on above: Performed By: #### E RUR ####[facility] Wkudttwman90[address] [place], [place] [address]Dr. Farhat Leal Clarity (U) CLEAR Normal CLEAR [facility] Comment on above: Performed By: #### E RUR ####[facility] Awwudvcqbi745[address] [place], [place] [address]Dr. Farhat Leal Color (U) YELLOW Normal YELLOW [facility] Comment on above: Performed By: #### E RUR ####[facility] Smgogkxsrf70[address] [place], [place] [address]Dr. Farhat Leal ERUAHD A micrscopic examination will be performed if indicated. Normal [facility] Comment on above: Performed By: #### E RUR ####[facility] Qamgiujrid4764[address] [place], [place] [address]Dr. Farhat Leal Glucose Ql (U) Negative Normal NEGATIVE [facility] Comment on above: Performed By: #### E RUR ####[facility] Iqrwxlzgdq1327[address] [place], [place] [address]Dr. Farhat Leal Hemoglobin Ql (U) Negative Normal NEGATIVE The [facility] Comment on above: Performed By: #### E RUR ####[facility] Txxoiodjjt2064[address] [place], [place] [address]Dr. Farhat Leal Ketones Ql (U) TRACE Abnormal NEGATIVE [facility] Comment on above: Performed By: #### E RUR ####[facility] Jwomzwpkmn022[address] [place], [place] [address]Dr. Farhat Leal LEUKOCYTES Negative Normal NEGATIVE [facility] Comment on above: Performed By: #### E RUR ####[facility] Agehhhfpda[address] [place] [address]Dr. Farhat Leal Nitrite Ql (U) Negative Normal NEGATIVE [facility] Comment on above: Performed By: #### E RUR ####[facility] Uotguzyuxy7207[address] [place], [place] [address]Dr. Farhat Leal pH (U) 5.5 [pH] Normal 5-9 [facility] Comment on above: Performed By: #### E RUR ####[facility] Qoergnzpcv7899[address] [place], [place] [address]Dr. Farhat Leal SPEC GRAVITY 1.015 Normal 1.005-<=1.[address] [place] [address] Comment on above: Performed By: #### E RUR ####[facility] Idptzardnw9711[address] [place], [place] [address]Dr. Farhat Leal UA PROTEIN Negative Normal NEGATIVE/ TRACE [facility] Comment on above: Performed By: #### E RUR ####[facility] Jjggqyfdds[address] [place], [place] [address]Dr. Farhat Leal UR MICRO IND NOT INDICATED Normal The [facility] Comment on above: Performed By: #### E RUR ####[facility] Alorleuurc7[address] [place], [place] [address]Dr. Farhat Leal Urobilinogen Qn (U) 0.2 {Obyd'U}/dL Normal 0.2 - 1. 0 [facility] Comment on above: Performed By: #### E RUR ####[facility] Nuogorxhch5485[address] [place], [place] [address]Dr. Farhat Leal GRAM STAINon 11-24-2021 DIPHTHEROIDS Normal [facility] Comment on above: Performed By: #### G STAIN ####[facility] Jpfpscjgad3134[address] [place], [place] [address]Dr. Farhat Leal EPITHELIALS Normal [facility] Comment on above: Performed By: #### G STAIN ####[facility] Hdzewqzlnp13[address] [place], [place] [address]Dr. Farhat Leal FUNGAL ELEMENTS Normal The [facility] Comment on above: Performed By: #### G STAIN ####[facility] Rxoszrmslx66[address] [place] [address]Dr. Farhat Leal GRAM NEG BACILLI Normal [facility] Comment on above: Performed By: #### G STAIN ####[facility] [address]qremiqyhd25[address] [place] [address]Dr. Farhat Leal GRAM NEG DIPPLOCOCCI Normal [facility] Comment on above: Performed By: #### G STAIN ####[facility] Enbqytjbyi6[address] [place] [address]Dr. Farhat Leal GRAM POS BACILLI Normal [facility] Comment on above: Performed By: #### G STAIN ####[facility] Unkhfcgyby3969[address] [place], [place] [address]Dr. Farhat Leal GRAM POSITIVE COCCI FEW Normal [facility] Comment on above: Performed By: #### G STAIN ####[facility] Gxwqabcdee1786[address] [place], [place] [address]Dr. Farhat Leal GRAM STAIN SOURCE RT ACHILLES TENDON Normal [facility] Comment on above: Performed By: #### G STAIN ####[facility] Muujdpcazo83[address] [place], [place] [address]Dr. Farhat Leal GS_DIPTH Normal [facility] Comment on above: Performed By: #### G STAIN ####[facility] Yeqpsokmrv417[address] [place], [place] [address]Dr. Farhat Leal WBC RARE Normal [facility] Comment on above: Performed By: #### G STAIN ####[facility] B[address]zjljcqbl99[address] [place], [place] [address]Dr. Farhat Leal COMMENTS NO ORGANISMS OBSERVED Normal [facility] Comment on above: Performed By: #### G STAIN ####[facility] Ofpdeuahok9[address] [place], [place] [address]Dr. Farhat Leal DIPHTHEROIDS Normal [facility] Comment on above: Performed By: #### G STAIN ####[facility] Lyuptamzbz3832[address] [place], [place] [address]Dr. Farhat Leal EPITHELIALS Normal [facility] Comment on above: Performed By: #### G STAIN ####[facility] Cqucyotyvs635[address] [place], [place] [address]Dr. Farhat Leal FUNGAL ELEMENTS Normal The [facility] Comment on above: Performed By: #### G STAIN ####[facility] [address]nycsjt[address] [place] [address]Dr. Farhat Leal GRAM NEG BACILLI Normal [facility] Comment on above: Performed By: #### G STAIN ####[facility] Kyycrqykcm4[address] [place] [address]Dr. Farhat Leal GRAM NEG DIPPLOCOCCI Normal [facility] Comment on above: Performed By: #### G STAIN ####[facility] Icvarfhbbs31[address] [place], [place] [address]Dr. Farhat Leal GRAM POS BACILLI Normal [facility] Comment on above: Performed By: #### G STAIN ####[facility] Rwzzknfasd930[address] [place], [place] [address]Dr. Farhat Leal GRAM POSITIVE COCCI Normal [facility] Comment on above: Performed By: #### G STAIN ####[facility] Smzejxixqo0123[address] [place], [place] [address]Dr. Farhat Leal GRAM STAIN SOURCE RT CALCANEOUS Normal [facility] Comment on above: Performed By: #### G STAIN ####[facility] Hohespstyp9[address] [place], [place] [address]Dr. Farhat Leal GS_DIPTH Normal [facility] Comment on above: Performed By: #### G STAIN ####[facility] Gddjgeiiwh8[address] [place], [place] [address]Dr. Farhat Leal WBC RARE Normal [facility] Comment on above: Performed By: #### G STAIN ####[facility] Lmwmcqmflp[address] [place] [address]Dr. Farhat Leal DIPHTHEROIDS Normal [facility] Comment on above: Performed By: #### G STAIN ####[facility] Yzltlracpd35[address] [place], [place] [address]Dr. Farhat Leal EPITHELIALS Normal [facility] Comment on above: Performed By: #### G STAIN ####[facility] Ohjqglohzj136[address] [place], [place] [address]Dr. Farhat Leal FUNGAL ELEMENTS Normal The [facility] Comment on above: Performed By: #### G STAIN ####[facility] Fxwmlxjkva[address] [place] [address]Dr. Farhat Leal GRAM NEG BACILLI FEW Normal [facility] Comment on above: Performed By: #### G STAIN ####[facility] [address]qwzoebz[address] [place] [address]Dr. Farhat Leal GRAM NEG DIPPLOCOCCI Normal [facility] Comment on above: Performed By: #### G STAIN ####[facility] Cpbdbrujah7[address] [place] [address]Dr. Farhat Leal GRAM POS BACILLI Normal [facility] Comment on above: Performed By: #### G STAIN ####[facility] Avbmzoqljv64[address] [place], [place] [address]Dr. Farhat Leal GRAM POSITIVE COCCI FEW Normal [facility] Comment on above: Performed By: #### G STAIN ####[facility] Hgdqemgoog048[address] [place], [place] [address]Dr. Farhat Leal GRAM STAIN SOURCE #2 Rt foot abscess Normal [facility] Comment on above: Performed By: #### G STAIN ####[facility] Dvyhalhxrv5499[address] [place], [place] [address]Dr. Farhat Leal GS_DIPTH Normal [facility] Comment on above: Performed By: #### G STAIN ####[facility] Diwchxtlzs87[address] [place], [place] [address]Dr. Farhat Leal WBC RARE Normal [facility] Comment on above: Performed By: #### G STAIN ####[facility] Ximrfwlnpi67[address] [place] [address]Dr. Farhat Leal DIPHTHEROIDS Normal [facility] Comment on above: Performed By: #### G STAIN ####[facility] Xgfruixrde322[address] [place], [place] [address]Dr. Farhat Leal EPITHELIALS Normal [facility] Comment on above: Performed By: #### G STAIN ####[facility] M[address]zqoujozk[address] [place] [address]Dr. Farhat Leal FUNGAL ELEMENTS Normal The [facility] Comment on above: Performed By: #### G STAIN ####[facility] [address]insaq[address] [place] [id number]. Farhat Leal GRAM NEG BACILLI FEW Normal [facility] Comment on above: Performed By: #### G STAIN ####[facility] Cowthaxjxe[address] [place] [address]Dr. Farhat Leal GRAM NEG DIPPLOCOCCI Normal [facility] Comment on above: Performed By: #### G STAIN ####[facility] Fcffmhhqxw1308 [place] [address]Dr. Farhat Leal GRAM POS BACILLI Normal [facility] Comment on above: Performed By: #### G STAIN ####[facility] Xahvednwoh[address] [place] [address]Dr. Farhat Leal GRAM POSITIVE COCCI FEW Normal [facility] Comment on above: Performed By: #### G STAIN ####[facility] Kpoetogngh01[address] [place], [place] [address]Dr. Farhat Leal GRAM STAIN SOURCE #1 Rt foot abscess Normal [facility] Comment on above: Performed By: #### G STAIN ####[facility] Holhhsnesn[address] [place] [address]Dr. Farhat Leal GS_DIPTH Normal [facility] Comment on above: Performed By: #### G STAIN ####[facility] Ysujramvoy40[address] [place] [address]Dr. Farhat Leal WBC NONE SEEN Normal [facility] Comment on above: Performed By: #### G STAIN ####[facility] Zscmeenkxv[address] [place], [place] [address]Dr. Farhat Leal POINT OF CARE GLUCOSEon 10- 0-2021 Glucose [Mass/Vol] 331 mg/dL Critically high 74-106 [facility] Comment on above: Performed By: #### P OCGLUC ####[facility] Pjobvtwpgr032[address] [place], [place] [address]Dr. Farhat Leal Glucose [Mass/Vol] 236 mg/dL Critically high 74-106 [facility] Comment on above: Performed By: #### P OCGLUC ####[facility] Uqmogpjwwy[address] [place], [place] [address]Dr. Farhat Leal PROF 14(COMP METB)on 022 Albumin [Mass/Vol] 1.6 g/dL Critically low 3.4-5.0 [facility] Comment on above: Performed By: #### B CARGO CHECKER, CMP, CRP ####[facility] Qvnenpxwzn39[address] [place] [address]Dr. Farhat Leal Albumin/Globulin [Mass ratio] 0.4 {ratio} Normal [facility] Comment on above: Performed By: #### B CARGO CHECKER, CMP, CRP ####[facility] [address]air[address] [place] [address]Dr. Farhat Leal ALP [Catalytic activity/Vol] 94 U/L Normal 46-116 [facility] Comment on above: Performed By: #### B CARGO CHECKER, CMP, CRP ####[facility] Mugmwuxakp[address] [place] [address]Dr. Farhat Leal ALT [Catalytic activity/Vol] 49 U/L Normal 16-63 [facility] Comment on above: Performed By: #### B CARGO CHECKER, CMP, CRP ####[facility] Pgaf[address]ojei[address] [place] [address]Dr. Farhat Leal Anion gap [Moles/Vol] 12.5 mmol/L Normal [facility] Comment on above: Performed By: #### B CARGO CHECKER, CMP, CRP ####[facility] Voejlfspma[address] [place] [address]Dr. Farhat Leal AST [Catalytic activity/Vol] 102 U/L Critically high 15-37 [facility] Comment on above: Performed By: #### B CARGO CHECKER, CMP, CRP ####[facility] [address]bed[address] [place] [address]Dr. Farhat Leal Bilirubin [Mass/Vol] 0.8 mg/dL Normal 0.2-1.0 [facility] Comment on above: Performed By: #### B CARGO CHECKER, CMP, CRP ####[facility] [address]qgqcc[address] [place] [address]Dr. Farhat Leal Calcium [Mass/Vol] 8.4 mg/dL Critically low 8.5-10.1 [facility] Comment on above: Performed By: #### B CARGO CHECKER, CMP, CRP ####[facility] Jfhgdhmdti[address] [place] [address]Dr. Farhat Leal Chloride [Moles/Vol] 96 mmol/L Critically low 98-107 [facility] Comment on above: Performed By: #### B CARGO CHECKER, CMP, CRP ####[facility] Zgjpelddye[address] [place] [address]Dr. Farhat Leal CO2 [Moles/Vol] 24.8 mmol/L Normal 21.0-32.0 [facility] Comment on above: Performed By: #### B CARGO CHECKER, CMP, CRP ####[facility] [address] [place], [place] [address]Dr. Farhat Leal Creatinine [Mass/Vol] 1.36 mg/dL Critically high 0.70-1.30 [facility] Comment on above: Performed By: #### B CARGO CHECKER, CMP, CRP ####[facility] Bfgkgdgbsy064[address] [place], [place] [address]Dr. Madelynlorri Elvis EGFR-AF SYRIAN >60 Normal >=60 [facility] Comment on above: Performed By: #### B CARGO CHECKER, CMP, CRP ####[facility] Taqmbyaqzr4[address] [place], [place] [address]Dr. Farhat Leal EGFR-NON AF SYRIAN 51 mL/min/1.73m2 Critically low >=60 [facility] Comment on above: Performed By: #### B CARGO CHECKER, CMP, CRP ####[facility] Focvtjxgxk7[address] [place], [place] [address]Dr. Farhat Leal Globulin (S) [Mass/Vol] 4.1 g/dL Normal [facility] Comment on above: Performed By: #### B CARGO CHECKER, CMP, CRP ####[facility] Zcetmxbxsr13[address] [place] [address]Dr. Farhat Leal Glucose [Mass/Vol] 204 mg/dL Critically high 74-106 T [facility] Comment on above: Performed By: #### B CARGO CHECKER, CMP, CRP ####[facility] Enhacrawfp[address] [place], [place] [address]Dr. Farhat Leal Potassium [Moles/Vol] 4.3 mmol/L Normal 3.5-5.1 [facility] Comment on above: Performed By: #### B CARGO CHECKER, CMP, CRP ####[facility] Ipvfolsehi232[address] [place], [place] [address]Dr. Farhat Leal Protein [Mass/Vol] 5.7 g/dL Critically low 6.4-8.2 Th [facility] Comment on above: Performed By: #### B CARGO CHECKER, CMP, CRP ####[facility] Egvsktvhfs[address] [place], [place] [address]Dr. Farhat Leal Sodium [Moles/Vol] 129 mmol/L Critically low 136-145 Th [facility] Comment on above: Performed By: #### B CARGO CHECKER, CMP, CRP ####[facility] Rlacohjpge[address] [place], [place] [address]Dr. Farhat Leal Urea nitrogen [Mass/Vol] 41.0 mg/dL Critically high 7.0-18.0 [facility] Comment on above: Performed By: #### B CARGO CHECKER, CMP, CRP ####[facility] Odxviryhkg8064[address] [place], [place] [address]Dr. Farhat Leal Urea nitrogen/Creatinine [Mass ratio] 30.1 mg/mg Normal [facility] Comment on above: Performed By: #### B CARGO CHECKER, CMP, CRP ####[facility] Kffefguwbp[address] [place], [place] [address]Dr. Farhat Leal PROTIMEon 11-24-2021 INR Coag (PPP) [Relative time] 2.20 {INR} Normal [facility] Comment on above: Performed By: #### P T ####[facility] Cmvzxdyraz374[address] [place], [place] [address]Dr. Farhat Leal INR GUIDELINES SEE BELOW Normal [facility] Comment on above: Result Comment: MALINA RED INR: 2.0 - 3.0 CONDITIONS NOT LISTED BELOW 2.5 - 3.5 FOR PROSTHETIC HEART VALVE REPLACEMENT 2.5 - 3.5 RECURRENT THROMBOSIS Performed By: #### P T ####[facility] Ezadxhvold[address] [place], [place] [address]Dr. Farhat Leal PT Coag (PPP) [Time] 22.6 s Critically high 9.0-11.6 [facility] Comment on above: Performed By: #### P T ####[facility] Ibaimagiay6415[address] [place], [place] [address]Dr. Farhat Leal SED R[facility] 2021 SED RATE 80 mm/hr Critically high <=20 The [facility] Comment on above: Performed By: #### S EDR ####[facility] Rhldkhkinj[address] [place], [place] [address]Dr. Farhat Leal BLOOD CULTURE ID PANELon A. baumannii Not detected Normal NOT DETECTED The [facility] Comment on above: Performed By: #### B CID2 ####[facility] Jggwgkydxy4466[address] [place], [place] [address]Dr. Farhat Leal Bacteriodes fragilis Not detected Normal NOT DETECTED [facility] Comment on above: Performed By: #### B CID2 ####[facility] Jpzuvwgkun[address] [place], [place] [address]Dr. Farhat Leal BCID CONTROLS PASSED Normal The [facility] Comment on above: Performed By: #### B CID2 ####[facility] Bgfxudnqyj5726[address] [place], [place] [address]Dr. Farhat Leal BCIDBTHD BLOOD CULTURE BOTTLE INFORMATION Normal [facility] Comment on above: Performed By: #### B CID2 ####[facility] Raevublipi[address] [place], [place] [address]Dr. Farhat Leal BCIDHD1 ANTIMICROBIAL RESISTANCE GENES Normal [facility] Comment on above: Performed By: #### B CID2 ####[facility] Kestlirgwe[address] [place], [place] [address]Dr. Farhat Leal BCIDHD2 SEE BELOW Normal [facility] Comment on above: Result Comment: Note : Antimicrobial resitance can occur via multiple mechanisms. A Not Detected result for the [employer] antomicrobial resistance gene assays does not indicate antimicrobial susceptibility. Subculturing is required for species identification and susceptibility testing of isolates. Performed By: #### B CID2 ####[facility] Djxwhedjai8[address] [place], [place] [address]Dr. Farhat Leal BCIDHD3 Positive Normal [facility] Comment on above: Performed By: #### B CID2 ####[facility] Bchtvaxiop[address] [place] [address]Dr. Yilorri Leal BCIDHD4 Negative Normal [facility] Comment on above: Performed By: #### B CID2 ####[facility] Hzbwcnkpep94[address] [place] [address]Dr. Farhat Leal BCIDHD5 YEAST Normal [facility] Comment on above: Performed By: #### B CID2 ####[facility] Tizikjkoga[address] [place] [address]Dr. Farhat Leal Bottle Set: Set 1 Normal [facility] Comment on above: Performed By: #### B CID2 ####[facility] Yfhvowrwnv[address] [place], [place] [address]Dr. Farhat Leal Bottle: Aerobic Normal [facility] Comment on above: Performed By: #### B CID2 ####[facility] Yhbfteibil5774[address] [place], [place] [address]Dr. Yilorri Leal C. neoformans/gattii Not detected Normal NOT DETECTED [facility] Comment on above: Performed By: #### B CID2 ####[facility] Ckegkajbas[address] [place], [place] [address]Dr. Yilorri [facility] Disha albicans Not detected Normal NOT DETECTED [facility] Comment on above: Performed By: #### B CID2 ####[facility] Bmvtxirqru5687[address] [place], [place] [address]Dr. Yilorri Leal Disha auris Not detected Normal NOT DETECTED The [facility] Comment on above: Performed By: #### B CID2 ####[facility] Chcviulqwk[address] [place] [address]Dr. Yilorri Leal Disha glabrata Not detected Normal NOT DETECTED [facility] Comment on above: Performed By: #### B CID2 ####[facility] Ailsnyjtrc40[address] [place] [address]Dr. Yilorri Leal Disha Krusei Not detected Normal NOT DETECTED [facility] Comment on above: Performed By: #### B CID2 ####[facility] Jkqpmnmiqp64[address] [place] [address]Dr. Yilan Leal Disha Parapsilosis Not detected Normal NOT DETECTED [facility] Comment on above: Performed By: #### B CID2 ####[facility] Nryisexsok4249[address] [place], [place] [address]Dr. Yilan Leal Disha Tropicalis Not detected Normal NOT DETECTED [facility] Comment on above: Performed By: #### B CID2 ####[facility] Vcvgfvwgnu[address] [place], [place] [address]Dr. Farhat Leal CTX-M Resistant Gene Not Applicable Normal NOT DETECTE D [facility] Comment on above: Performed By: #### B CID2 ####[facility] Hlpwunnpel90[address] [place], [place] [address]Dr. Yilorri Leal E. Cloacae complex Not detected Normal NOT DETECTED [facility] Comment on above: Performed By: #### B CID2 ####[facility] Jougvglbcj3237[address] [place], [place] [address]Dr. Yilan Leal E. faecalis Not detected Normal NOT DETECTED The [facility] Comment on above: Performed By: #### B CID2 ####[facility] Kwbuyfhboy1472[address] [place], [place] [address]Dr. Farhat Leal E. faecium Not detected Normal NOT DETECTED The [facility] Comment on above: Performed By: #### B CID2 ####[facility] Kvpqfyigzb3348[address] [place], [place] [address]Dr. Yilan Leal Enterobacteriaceae Not detected Normal NOT DETECTED [facility] Comment on above: Performed By: #### B CID2 ####[facility] Yiweozhamv7528[address] [place], [place] [address]Dr. Yilan Leal Escherichia coli Not detected Normal NOT DETECTED [facility] Comment on above: Performed By: #### B CID2 ####[facility] Pzndnoxemv[address] [place], [place] [address]Dr. Yilan Leal H. influenzae Not detected Normal NOT DETECTED The [facility] Comment on above: Performed By: #### B CID2 ####[facility] Kemvcndyyi35[address] [place] [address]Dr. Farhat Leal IMP Resistant Gene Not Applicable Normal NOT DETECTED [facility] Comment on above: Performed By: #### B CID2 ####[facility] Lgadgxtyzx7584[address] [place], [place] [address]Dr. Farhat Leal K. oxytoca Not detected Normal NOT DETECTED [facility] Comment on above: Performed By: #### B CID2 ####[facility] Hrobpnthfq[address] [place], [place] [address]Dr. Farhat Leal K. pneumoniae Not detected Normal NOT DETECTED The [facility] Comment on above: Performed By: #### B CID2 ####[facility] Ecbsboudij3192[address] [place], [place] [address]Dr. Farhat Leal Klebsiella aerogenes Not detected Normal NOT DETECTED [facility] Comment on above: Performed By: #### B CID2 ####[facility] Sjzqvvwvet2901[address] [place], [place] [address]Dr. Farhat Leal KPC Resistant Gene Not Applicable Normal NOT DETECTED [facility] Comment on above: Performed By: #### B CID2 ####[facility] Ikedjkfrui4983[address] [place], [place] [address]Dr. Farhat Leal List. monocytogenes Not detected Normal NOT DETECTED [facility] Comment on above: Performed By: #### B CID2 ####[facility] Njfammhgnq1844[address] [place], [place] [address]Dr. Farhat Leal Mcr-1 Resistant Gene Not Applicable Normal NOT DETECTE D [facility] Comment on above: Performed By: #### B CID2 ####[facility] Eyxfjqozje866[address] [place], [place] [address]Dr. Farhat Leal mecA/C Not Applicable Normal NOT DETECTED The [facility] Comment on above: Performed By: #### B CID2 ####[facility] Timkzebhxv4178[address] [place], [place] [address]Dr. Farhat Leal mecA/C MREJ Detected Abnormal NOT DETECTED The [facility] Comment on above: Performed By: #### B CID2 ####[facility] Saspqhbkyy0714[address] [place], [place] [address]Dr. Farhat Leal N. meningitidis Not detected Normal NOT DETECTED The [facility] Comment on above: Performed By: #### B CID2 ####[facility] Efwnowckxr635[address] [place], [place] [address]Dr. Farhat Leal NDM Resistant Gene Not Applicable Normal NOT DETECTED [facility] Comment on above: Performed By: #### B CID2 ####[facility] Mmtiypswqa7418[address] [place], [place] [address]Dr. Farhat Leal Oxa-48-like Not Applicable Normal NOT DETECTED The [facility] Comment on above: Performed By: #### B CID2 ####[facility] Fzqrqqljvq7826[address] [place], [place] [address]Dr. Farhat Leal Proteus Not detected Normal NOT DETECTED [facility] Comment on above: Performed By: #### B CID2 ####[facility] Sfqistjwjj2293[address] [place], [place] [address]Dr. Farhat Leal Pseud. aeruginosa Not detected Normal NOT DETECTED [facility] Comment on above: Performed By: #### B CID2 ####[facility] Qjszhwqcaz84[address] [place], [place] [address]Dr. Farhat Leal S. maltophilia Not detected Normal NOT DETECTED [facility] Comment on above: Performed By: #### B CID2 ####[facility] Whuoympszi8346[address] [place], [place] [address]Dr. Farhat Leal Salmonella Not detected Normal NOT DETECTED [facility] Comment on above: Performed By: #### B CID2 ####[facility] Ygcfqcfzmc8509[address] [place], [place] [address]Dr. Farhat Leal Seratia marcescens Not detected Normal NOT DETECTED [facility] Comment on above: Performed By: #### B CID2 ####[facility] Yjtwnnhwis4858[address] [place], [place] [address]Dr. Farhat Leal Site: Rt Hand Normal [facility] Comment on above: Performed By: #### B CID2 ####[facility] Kqeoitdkng9549[address] [place], [place] [address]Dr. Farhat Leal Staph. aureus Detected Abnormal NOT DETECTED The [facility] Comment on above: Performed By: #### B CID2 ####[facility] Erdvtbujht26[address] [place] [address]Dr. Farhat Leal Staph. epidermidis Not detected Normal NOT DETECTED [facility] Comment on above: Performed By: #### B CID2 ####[facility] Fnfrybxlti468[address] [place], [place] [address]Dr. Farhat Leal Staph. lugdunensis Not detected Normal NOT DETECTED [facility] Comment on above: Performed By: #### B CID2 ####[facility] Vfsxgjjkrd9552[address] [place], [place] [address]Dr. Farhat Leal Staphylococcus Detected Abnormal NOT DETECTED The [facility] Comment on above: Performed By: #### B CID2 ####[facility] Waysnrfpet20[address] [place], [place] [address]Dr. Farhat Leal Strep. agalactiae Not detected Normal NOT DETECTED [facility] Comment on above: Performed By: #### B CID2 ####[facility] Exkhmonpin[address] [place], [place] [address]Dr. Farhat Leal Strep. pneumoniae Not detected Normal NOT DETECTED [facility] Comment on above: Performed By: #### B CID2 ####[facility] Ykvionwknv299[address] [place], [place] [address]Dr. Madelynlorri Leal Strep. pyogenes Not detected Normal NOT DETECTED The [facility] Comment on above: Performed By: #### B CID2 ####[facility] Ujngdbsowo28[address] [place], [place] [address]Dr. Farhat Leal Streptococcus Not detected Normal NOT DETECTED The [facility] Comment on above: Performed By: #### B CID2 ####[facility] Mykibjmkko9543[address] [place], [place] [address]Dr. Farhat Leal Teodoro/B Resist. Gene Not Applicable Normal NOT DETECTED [facility] Comment on above: Performed By: #### B CID2 ####[facility] Wxkthlwmes7179[address] [place], [place] [address]Dr. Farhat Leal VIM Resistant Gene Not Applicable Normal NOT DETECTED [facility] Comment on above: Performed By: #### B CID2 ####[facility] Amcnudikgu[address] [place] [address]Dr. Farhat Leal BNPon 11-23-2021 Natriuretic peptide B (Bld) [Mass/Vol] 28526.0 pg/mL Critically high <=1,800.0 [facility] Comment on above: Performed By: #### C MP, CMADM, BNP ####[facility] Grswfwtezj7[address] [place] [address]Dr. Farhat Leal CARDIAC AMANDA ADMITon 022 CK [Catalytic activity/Vol] 41 U/L Normal 39-308 [facility] Comment on above: Performed By: #### C MP, CMADM, BNP ####[facility] Nslvebnwhr65[address] [place] [address]Dr. Farhat Leal CK.MB [Mass/Vol] 0.98 ng/mL Normal <=3.60 The [facility] Comment on above: Performed By: #### C MP, CMADM, BNP ####[facility] Bbpetpyjig65[address] [place], [place] [address]Dr. Farhat Leal HSTROP 30.1 pg/mL Normal 4.0-76.1 [facility] Comment on above: Result Comment: CUT- OFF POINTS HAVE BEEN ESTABLISHED BASED ON THE FOURTH UNIVERSAL DEFINITIONS OF MYOCARDIALINFARCTION. THE UPPER REFERENCE LIMIT (URL) OF TROPONIN, DEFINED THE 99TH PERCENTILE OFcTnI DISTRIBUTION IN A REFERENCE POPULATION, HAS BEEN CONFIRMED THE DECISION THRESHOLDFOR [place] DIAGNOSIS. Performed By: #### C MP, CMADM, BNP ####[facility] Fcoajzkkfa[address] [place] [address]Dr. Farhat Leal VALERIA 160 ng/mL Critically high 16-96 The [facility] Comment on above: Performed By: #### C MP, CMADM, BNP ####[facility] Miitocpdwj94[address] [place] [address]Dr. Farhat Leal CBC AUTO DIFFon 11-23-2021 BASO # 0.0 103/ul Normal 0.0-0.1 [facility] Comment on above: Performed By: #### C BC ####[facility] Fxyshonhyc6[address] [place] [address]Dr. Farhat Leal Basophils/100 WBC (Bld) 0.2 % Normal 0.2-2.0 [facility] Comment on above: Performed By: #### C BC ####[facility] Krweihxhrl[address] [place], [place] [address]Dr. Farhat Leal EO # 0.0 103/ul Normal 0.0-0.7 [facility] Comment on above: Performed By: #### C BC ####[facility] Qrgsuhrdfx6952[address] [place], [place] [address]Dr. Farhat Leal Eosinophils/100 WBC (Bld) 0.1 % Critically low 0.9-7.0 [facility] Comment on above: Performed By: #### C BC ####[facility] Suhqohrbhc[address] [place], [place] [address]Dr. Farhat Leal Erythrocyte distribution width (RBC) [Ratio] 13.4 % Normal 11.0-15.0 [facility] Comment on above: Performed By: #### C BC ####[facility] [address]qfhsgtal[address] [place], [place] [address]Dr. Farhat Leal Hematocrit (Bld) [Volume fraction] 31.6 % Critically low 42.0-54.0 [facility] Comment on above: Performed By: #### C BC ####[facility] [address]uzlpcxsy[address] [place], [place] [address]Dr. Farhat Leal Hemoglobin (Bld) [Mass/Vol] 10.4 g/dL Critically low 14.0-18.0 [facility] Comment on above: Performed By: #### C BC ####[facility] Yvijdhwenm[address] [place], [place] [address]Dr. Farhat Leal IG # 0.11 10e3/ul Critically high 0.00-0.03 The [facility] Comment on above: Performed By: #### C BC ####[facility] Gwbdarhzim5[address] [place], [place] [address]Dr. Farhat Leal IG % 0.7 % Critically high 0.0-0.5 The [facility] Comment on above: Performed By: #### C BC ####[facility] Aw[address]ixnmfb[address] [place], [place] [address]Yq. Farhat Elvis LYMPH # 0.5 103/ul Critically low 1.2-3.8 The [facility] Comment on above: Performed By: #### C BC ####[facility] Hvxojkuaaz[address] [place], [place] [address]Km. Farhat Elvis Lymphocytes/100 WBC (Bld) 2.8 % Critically low 20.5-60.0 [facility] Comment on above: Performed By: #### C BC ####[facility] [address]uwvj[address] [place] [address]Dr. Madelynlorri Leal MANUAL DIFF REQ NO Normal The [facility] Comment on above: Performed By: #### C BC ####[facility] Mbyarlqtbi[address] [place] [address]Dr. Farhat Elvis MCH (RBC) [Entitic mass] 29.8 pg Normal 25.9-34.0 [facility] Comment on above: Performed By: #### C BC ####[facility] Ydeshckxgp6[address] [place] [address]Dr. Farhat Elvis MCHC (RBC) [Mass/Vol] 32.9 g/dL Normal 29.9-35.2 [facility] Comment on above: Performed By: #### C BC ####[facility] Nyjgsmnnus[address] [place] [address]Dr. Madelynlorri Elvis MCV (RBC) [Entitic vol] 90.5 fL Normal 80.0-94.0 [facility] Comment on above: Performed By: #### C BC ####[facility] [address]usmke[address] [place] [address]Dr. Farhat Elvis MONO # 1.3 103/ul Critically high 0.3-0.8 The [facility] Comment on above: Performed By: #### C BC ####[facility] H[address]uqvixeu[address] [place] [address]Dr. Madelynlorri Leal Monocytes/100 WBC (Bld) 8.3 % Normal 1.7-12.0 [facility] Comment on above: Performed By: #### C BC ####[facility] Ifyblchscp[address] [place], [place] [address]Bd. Farhat Leal NEUT # 13.9 103/ul Critically high 1.4-6.5 The [facility] Comment on above: Performed By: #### C BC ####[facility] [address]vcnsisl5766 [place], [place] [address]Za. Farhat Leal Neutrophils/100 WBC (Bld) 87.9 % Critically high 43.0-75.0 [facility] Comment on above: Performed By: #### C BC ####[facility] [facility] [address] [place], [place] [address]Jh. Farhat Leal Platelet mean volume (Bld) [Entitic vol] 9.3 fL Critically low 9.5-13.5 [facility] Comment on above: Performed By: #### C BC ####[facility] [address] [place] [id number]. Farhat Leal PLT 390 103/ul Normal 150-450 [facility] Comment on above: Performed By: #### C BC ####[facility] [address] [place], [place] [address]Yg. Farhat Leal RBC 3.49 106/ul Critically low 4.70-6.10 The [facility] Comment on above: Performed By: #### C BC ####[facility] Rb[address] [place], [place] [address]Ps. Farhat Leal WBC 15.9 103/ul Critically high 4.0-11.0 The [facility] Comment on above: Performed By: #### C BC ####[facility] Joeldlznbd[address] [place], [place] [address]Hg. Farhat Leal CT HEAD WO CONon 11-23-2021 CT HEAD WO CON Normal [facility] CULTURE BLOODon 11-23-2021 Microscopic examination of blood, culture Culture Observations: NO GROWTH AT 5 DAYS. Normal [facility] Comment on above: Performed By: #### B LDCX2 ####[facility] [address] [place] [id number]. Farhat Leal Covid-19 PCR (CVDTBH)on SARS-CoV-2 (COVID-19) RNA JOSH+probe Ql (Unsp spec) Not detected Normal NOT DETECTED [facility] Comment on above: Result [...] for this test is supported by the [place] of Health and Human Service's declaration that [...] be used). Performed By: #### C VDTBH ####[facility] [address] [place] [address]Dr. Farhat Leal LACTATE/LACTIC ACIDon 2021 Lactate [Moles/Vol] 1.3 mmol/L Normal 0.4-1.9 [facility] Comment on above: Performed By: #### L ACT ####[facility] [address] [place], [place] [address]DrSkylar Leal Lactate [Moles/Vol] 1.3 mmol/L Normal 0.4-1.9 [facility] Comment on above: Performed By: #### L ACT ####[facility] [address]mut[address] [place], [place] [address]DrSkylar Leal POINT OF CARE GLUCOSEon Glucose [Mass/Vol] 252 mg/dL Critically high 74-106 [facility] Comment on above: Performed By: #### P OCGLUC ####[facility] [address] [place] [address]DrSkylar Leal PROF 14(COMP METB)on 022 Albumin [Mass/Vol] 1.6 g/dL Critically low 3.4-5.0 Th [place] [facility] Comment on above: Performed By: #### C MP CMADM, BNP ####[facility] [address] [place] [address]Dr. Farhat Leal Albumin/Globulin [Mass ratio] 0.4 {ratio} Normal [facility] Comment on above: Performed By: #### C MP, CMADM, BNP ####[facility] [address] [place] [address]Dr. Farhat Elvis ALP [Catalytic activity/Vol] 98 U/L Normal 46-116 [facility] Comment on above: Performed By: #### C MP, CMADM, BNP ####[facility] [address]wvr[address] [place] [address]Dr. Farhat Leal ALT [Catalytic activity/Vol] 52 U/L Normal 16-63 [facility] Comment on above: Performed By: #### C CARA CMADM, BNP ####[facility] [address] [place] [address]Dr. Farhat Leal Anion gap [Moles/Vol] 9.8 mmol/L Normal [facility] Comment on above: Performed By: #### C MP CMADM, BNP ####[facility] [address]mj[address] [place] [address]Dr. Farhat Leal AST [Catalytic activity/Vol] 122 U/L Critically high 15-37 [facility] Comment on above: Performed By: #### C MP, CMADM, BNP ####[facility] [address] [place] [address]Dr. Farhat Leal Bilirubin [Mass/Vol] 0.7 mg/dL Normal 0.2-1.0 [facility] Comment on above: Performed By: #### C MP, CMADM, BNP ####[facility] [address] [place] [address]Dr. Farhat Leal Calcium [Mass/Vol] 8.6 mg/dL Normal 8.5-10.1 [facility] Comment on above: Performed By: #### C MP, CMADM, BNP ####[facility] [address] [place] [address]Dr. Farhat Leal Chloride [Moles/Vol] 95 mmol/L Critically low 98-107 [facility] Comment on above: Performed By: #### C MP, CMADM, BNP ####[facility] Q[address]gffe[address] [place] [address]Dr. Farhat Leal CO2 [Moles/Vol] 29.6 mmol/L Normal 21.0-32.0 [facility] Comment on above: Performed By: #### C MP, CMADM, BNP ####[facility] [address] [place] [address]Dr. Farhat Leal Creatinine [Mass/Vol] 1.49 mg/dL Critically high 0.70-1.30 [facility] Comment on above: Performed By: #### C MP, CMADM, BNP ####[facility] [address] [place], [place] [address]Dr. Madelynlorri Elvis EGFR-AF SYRIAN 55 mL/min/1.73m2 Critically low >=60 [facility] Comment on above: Performed By: #### C MP, CMADM, BNP ####[facility] [address] [place], [place] [address]Dr. Farhat Elvis EGFR-NON AF SYRIAN 46 mL/min/1.73m2 Critically low >=60 [facility] Comment on above: Performed By: #### C MP, CMADM, BNP ####[facility] [address]oc[address] [place] [address]Dr. Farhat Leal Globulin (S) [Mass/Vol] 4.3 g/dL Normal [facility] Comment on above: Performed By: #### C MP, CMADM, BNP ####[facility] [address]zsmta[address] [place] [address]Dr. Madelynlorri Elvis Glucose [Mass/Vol] 213 mg/dL Critically high 74-106 T [facility] Comment on above: Performed By: #### C MP, CMADM, BNP ####[facility] [address]isfttibe[address] [place] [address]Dr. Farhat Lael Potassium [Moles/Vol] 4.4 mmol/L Normal 3.5-5.1 [facility] Comment on above: Performed By: #### C FATMATA MARROQUINDM, BNP ####[facility] [address]xx[address] [place] [address]Dr. Madelynlorri Leal Protein [Mass/Vol] 5.9 g/dL Critically low 6.4-8.2 Th [place] [facility] Comment on above: Performed By: #### C FATMATA MARROQUINDM, BNP ####[facility] [address] [place] [address]Dr. Madelynlorri Leal Sodium [Moles/Vol] 130 mmol/L Critically low 136-145 Th [place] [facility] Comment on above: Performed By: #### C ANTWAN MARROQUIN, BNP ####[facility] [address]lsr[address] [place] [address]Dr. Farhat Leal Urea nitrogen [Mass/Vol] 46.0 mg/dL Critically high 7.0-18.0 [facility] Comment on above: Performed By: #### C FATMATA MARROQUINDM, BNP ####[facility] [address]xscrpqasy[address] [place] [address]Dr. Farhat Leal Urea nitrogen/Creatinine [Mass ratio] 30.9 mg/mg Normal [facility] Comment on above: Performed By: #### C ANTWAN MARROQUIN, BNP ####[facility] [address]dt[address] [place] [address]Dr. Farhat Leal PROTIMEon 11-23-2021 INR Coag (PPP) [Relative time] 2.55 {INR} Normal [facility] Comment on above: Performed By: #### P TT, PT ####[facility] [address] [place] [address]Dr. Farhat Leal INR GUIDELINES SEE BELOW Normal [facility] Comment on above: Result Comment: MALINA RED INR: 2.0 - 3.0 CONDITIONS NOT LISTED BELOW 2.5 - 3.5 FOR PROSTHETIC HEART VALVE REPLACEMENT 2.5 - 3.5 RECURRENT THROMBOSIS Performed By: #### P TT, PT ####[facility] [address] [place], [place] [address]Dr. Farhat Elvis PT Coag (PPP) [Time] 25.9 s Critically high 9.0-11.6 [facility] Comment on above: Performed By: #### P TT, PT ####[facility] [address]ktq[address] [place], [place] [address]Dr. Farhat Leal PTTon 11-23-2021 aPTT Coag (Bld) [Time] 39.9 s Critically high 22.3-36. 2 [facility] Comment on above: Performed By: #### P TT, PT ####[facility] E[address]kgpjpqa[address] [place], [place] [address]Dr. Farhat Elvis XR CHEST 1 Von 11-23-2021 XR CHEST 1 V Normal [facility] XR HEEL RT 2Von 11-23-2021 XR HEEL RT 2V Normal [facility] XR FOOT RT MIN 3 VIEWSon XR FOOT RT MIN 3 VIEWS Normal [facility] US ARTERY LEG RTon 2 US ARTERY LEG RT Normal [facility] CBC AUTO DIFFon 09-24-2021 BASO # 0.1 103/ul Normal 0.0-0.1 [facility] Comment on above: Performed By: #### C BC ####[facility] [address]ms[address]zcj[address] [place], [place] [address]Dr. Farhat Leal Basophils/100 WBC (Bld) 0.7 % Normal 0.2-2.0 [facility] Comment on above: Performed By: #### C BC ####[facility] Nl[address]lq[address] [place], [place] [address]Dr. Farhat Leal EO # 0.3 103/ul Normal 0.0-0.7 [facility] Comment on above: Performed By: #### C BC ####[facility] [address]orq[address]kde[address] [place], [place] [address]Dr. Farhat Leal Eosinophils/100 WBC (Bld) 3.9 % Normal 0.9-7.0 [facility] Comment on above: Performed By: #### C BC ####[facility] [address]ow[address]idsf[address] [place], [place] [address]Dr. Farhat Leal Erythrocyte distribution width (RBC) [Ratio] 12.6 % Normal 11.0-15.0 [facility] Comment on above: Performed By: #### C BC ####[facility] [address]qdisxxsqu[address] [place] [address]Dr. Farhat Leal Hematocrit (Bld) [Volume fraction] 38.9 % Critically low 42.0-54.0 [facility] Comment on above: Performed By: #### C BC ####[facility] E[address]nslsln[address] [place], [place] [address]Dr. Madelynlorri Leal Hemoglobin (Bld) [Mass/Vol] 12.8 g/dL Critically low 14.0-18.0 [facility] Comment on above: Performed By: #### C BC ####[facility] [address]mfbehqo18[address] [place], [place] [address]Dr. Farhat Leal IG # 0.10 10e3/ul Critically high 0.00-0.03 [facility] Comment on above: Performed By: #### C BC ####[facility] Uwufrvfbpu[address] [place], [place] [address]Dr. Madelynlorri Leal IG % 1.2 % Critically high 0.0-0.5 The [facility] Comment on above: Performed By: #### C BC ####[facility] Ccpzqlggsg617[address] [place], [place] [address]Dr. Farhat Leal LYMPH # 2.1 103/ul Normal 1.2-3.8 [facility] Comment on above: Performed By: #### C BC ####[facility] Mdtofjzapb[address] [place], [place] [address]DrSkylar Leal Lymphocytes/100 WBC (Bld) 25.9 % Normal 20.5-60.0 [facility] Comment on above: Performed By: #### C BC ####[facility] X[address]focqsjm[address] [place], [place] [address]DrSkylar Leal MANUAL DIFF REQ NO Normal The [facility] Comment on above: Performed By: #### C BC ####[facility] Xetkvdgewq[address] [place], [place] [address]DrSkylar Leal MCH (RBC) [Entitic mass] 31.1 pg Normal 25.9-34.0 [facility] Comment on above: Performed By: #### C BC ####[facility] [address]uxy[address] [place] [phone]. Farhat Leal MCHC (RBC) [Mass/Vol] 32.9 g/dL Normal 29.9-35.2 [facility] Comment on above: Performed By: #### C BC ####[facility] [address]hjuhtlv[address] [place] [phone]. Farhat Leal MCV (RBC) [Entitic vol] 94.6 fL Critically high 80.0-94.0 [facility] Comment on above: Performed By: #### C BC ####[facility] [address]qpfvfxo[address] [place] [address]DrSkylar Farhat Leal MONO # 1.2 103/ul Critically high 0.3-0.8 The [facility] Comment on above: Performed By: #### C BC ####[facility] Xueqrjypkg[address] [place], [place] [address]Dr. Farhat Leal Monocytes/100 WBC (Bld) 14.1 % Critically high 1.7-12.0 [facility] Comment on above: Performed By: #### C BC ####[facility] Ymjvmasbmo[address] [place], [place] [address]DrSkylar Farhat Leal NEUT # 4.4 103/ul Normal 1.4-6.5 [facility] Comment on above: Performed By: #### C BC ####[facility] [address]wjbfzg[address] [place] [address]DrSkylar Farhat Elvis Neutrophils/100 WBC (Bld) 54.2 % Normal 43.0-75.0 [facility] Comment on above: Performed By: #### C BC ####[facility] [address] [place], [place] [id number] Farhat Leal Platelet mean volume (Bld) [Entitic vol] 9.9 fL Normal 9.5-13.5 [facility] Comment on above: Performed By: #### C BC ####[facility] [address] [place] [phone]. Farhat Elvis PLT 224 103/ul Normal 150-450 [facility] Comment on above: Performed By: #### C BC ####[facility] [address]vinzx[address] [place] [phone]. Farhat Leal RBC 4.11 106/ul Critically low 4.70-6.10 The [facility] Comment on above: Performed By: #### C BC ####[facility] [address]clorhpr[address] [place] [phone]. Farhat Elvis WBC 8.2 103/ul Normal 4.0-11.0 [facility] Comment on above: Performed By: #### C BC ####[facility] [address]teirulb[address] [place] [address]Dr. Madelynlorri Leal PROF CHEM 8 (BAS METB)on Anion gap [Moles/Vol] 9.6 mmol/L Normal [facility] Comment on above: Performed By: #### B MP ####[facility] Q[address]aislizg[address] [place] [address]Dr. Madelynlorri Leal Calcium [Mass/Vol] 8.6 mg/dL Normal 8.5-10.1 [facility] Comment on above: Performed By: #### B MP ####[facility] Qorpthmwhp6[address] [place] [address]Dr. Madelynlorri Leal Chloride [Moles/Vol] 94 mmol/L Critically low 98-107 [facility] Comment on above: Performed By: #### B MP ####[facility] Chqzfxludd89[address] [place] [address]Dr. Farhat Leal CO2 [Moles/Vol] 28.1 mmol/L Normal 21.0-32.0 [facility] Comment on above: Performed By: #### B MP ####[facility] Mwmoshfhfd[address] [place] [address]Dr. Farhat Leal Creatinine [Mass/Vol] 1.91 mg/dL Critically high 0.70-1.30 [facility] Comment on above: Performed By: #### B MP ####[facility] Nnhtdcgpqf4225 [place] [phone]. Farhat Elvis EGFR-AF SYRIAN 42 mL/min/1.73m2 Critically low >=60 [facility] Comment on above: Performed By: #### B MP ####[facility] [address]umpjkwrqx27[address] [place] [phone]. Farhat Elvis EGFR-NON AF SYRIAN 34 mL/min/1.73m2 Critically low >=60 [facility] Comment on above: Performed By: #### B MP ####[facility] G[address]qdwqpahu9[address] [place] [phone]. Farhat Leal Glucose [Mass/Vol] 314 mg/dL Critically high 74-106 T [facility] Comment on above: Performed By: #### B MP ####[facility] Oxteuwswfh[address] [place], [place] [address]Dr. Farhat Leal Potassium [Moles/Vol] 4.7 mmol/L Normal 3.5-5.1 [facility] Comment on above: Performed By: #### B MP ####[facility] Cac[address]obarf04[address] [place], [place] [address]Dr. Farhat Leal Sodium [Moles/Vol] 127 mmol/L Critically low 136-145 Th [facility] Comment on above: Performed By: #### B MP ####[facility] Igwdvuqjlt4966[address] [place], [place] [address]Dr. Farhat Leal Urea nitrogen [Mass/Vol] 79.0 mg/dL Critically high 7.0-18.0 [facility] Comment on above: Result Comment: repe ated Performed By: #### B MP ####[facility] Zuhlrovxnd[address] [place] [address]Dr. Farhat Leal Urea nitrogen/Creatinine [Mass ratio] 41.4 mg/mg Normal [facility] Comment on above: Performed By: #### B MP ####[facility] Iquqvuryzg12[address] [place], [place] [address]Dr. Farhat Leal PTT HEPARIN MONITORon 2021 aPTT Coag (Bld) [Time] 42.7 s Normal 39.5-54.2 Th [facility] Comment on above: Performed By: #### P TTHEP ####[facility] Ukwswzjvsx19[address] [place] [address]Dr. Farhat Leal aPTT Coag (Bld) [Time] 56.7 s Critically high 39.5-54. 2 [facility] Comment on above: Performed By: #### P TTHEP ####[facility] Ogibnlusvt[address] [place], [place] [address]Dr. Farhat Leal CBC AUTO DIFFon 09-23-2021 BASO # 0.1 103/ul Normal 0.0-0.1 [facility] Comment on above: Performed By: #### C BC ####[facility] Abwiycnnuz14[address] [place], [place] [address]DrSkylar Leal Basophils/100 WBC (Bld) 0.6 % Normal 0.2-2.0 [facility] Comment on above: Performed By: #### C BC ####[facility] Haemyhaafw[address] [place], [place] [address]DrSkylar Leal EO # 0.2 103/ul Normal 0.0-0.7 [facility] Comment on above: Performed By: #### C BC ####[facility] Iuuhymhbty04[address] [place], [place] [address]DrSkylar Leal Eosinophils/100 WBC (Bld) 2.6 % Normal 0.9-7.0 [facility] Comment on above: Performed By: #### C BC ####[facility] [address]hsbihhjx[address] [place], [place] [address]DrSkylar Leal Erythrocyte distribution width (RBC) [Ratio] 12.4 % Normal 11.0-15.0 [facility] Comment on above: Performed By: #### C BC ####[facility] Bifjkwxcsu13[address] [place], [place] [address]DrSkylar Leal Hematocrit (Bld) [Volume fraction] 38.4 % Critically low 42.0-54.0 [facility] Comment on above: Performed By: #### C BC ####[facility] Vyrgxqnusy[address] [place], [place] [address]DrSkylar Leal Hemoglobin (Bld) [Mass/Vol] 12.8 g/dL Critically low 14.0-18.0 [facility] Comment on above: Performed By: #### C BC ####[facility] [address]fftedz[address] [place] [address]DrSkylar Leal IG # 0.06 10e3/ul Critically high 0.00-0.03 [facility] Comment on above: Performed By: #### C BC ####[facility] Ppcsyxmloj3559 [place] [address]DrSkylar Leal IG % 0.8 % Critically high 0.0-0.5 The [facility] Comment on above: Performed By: #### C BC ####[facility] K[address]zfydqxni[address] [place], [place] [address]DrSkylar Leal LYMPH # 1.5 103/ul Normal 1.2-3.8 [facility] Comment on above: Performed By: #### C BC ####[facility] Mfmxijaxeu96[address] [place], [place] [address]DrSkylar Leal Lymphocytes/100 WBC (Bld) 19.7 % Critically low 20.5-60.0 [facility] Comment on above: Performed By: #### C BC ####[facility] Nzbdcfdyor78[address] [place], [place] [address]DrSkylar Leal MANUAL DIFF REQ NO Normal The [facility] Comment on above: Performed By: #### C BC ####[facility] Hqyntoksyn14[address] [place], [place] [address]DrSkylar Leal MCH (RBC) [Entitic mass] 31.6 pg Normal 25.9-34.0 [facility] Comment on above: Performed By: #### C BC ####[facility] Euralfqdzs75[address] [place], [place] [address]DrSkylar Leal MCHC (RBC) [Mass/Vol] 33.3 g/dL Normal 29.9-35.2 [facility] Comment on above: Performed By: #### C BC ####[facility] Oczcdmufci15[address] [place], [place] [address]DrSkylar Leal MCV (RBC) [Entitic vol] 94.8 fL Critically high 80.0-94.0 [facility] Comment on above: Performed By: #### C BC ####[facility] Enwfvbbwyf3187 [place] [address]DrSkylar Farhat Leal MONO # 1.0 103/ul Critically high 0.3-0.8 The [facility] Comment on above: Performed By: #### C BC ####[facility] [address]voockdejo30[address] [place], [place] [address]DrSkylar Joshilorri Elvis Monocytes/100 WBC (Bld) 13.0 % Critically high 1.7-12.0 [facility] Comment on above: Performed By: #### C BC ####[facility] Upsayeemcn8032[address] [place], [place] [address]Dr. Farhat Leal NEUT # 4.9 103/ul Normal 1.4-6.5 [facility] Comment on above: Performed By: #### C BC ####[facility] Vxvnwzgtmf30[address] [place], [place] [address]Dr. Farhat Leal Neutrophils/100 WBC (Bld) 63.3 % Normal 43.0-75.0 [facility] Comment on above: Performed By: #### C BC ####[facility] [address]wuckeksxk37[address] [place], [place] [address]DrSkylar Joshilorri Elvis Platelet mean volume (Bld) [Entitic vol] 10.7 fL Normal 9.5-13.5 [facility] Comment on above: Performed By: #### C BC ####[facility] Dbjmixjxlw4492[address] [place], [place] [address]Dr. Farhat Leal PLT 205 103/ul Normal 150-450 [facility] Comment on above: Performed By: #### C BC ####[facility] Tjoctezesk[address] [place], [place] [address]DrSkylar Leal RBC 4.05 106/ul Critically low 4.70-6.10 The [facility] Comment on above: Performed By: #### C BC ####[facility] Pxpzhfasgw6[address] [place], [place] [address]DrSkylar Leal WBC 7.7 103/ul Normal 4.0-11.0 [facility] Comment on above: Performed By: #### C BC ####[facility] Lyorqztxmt43[address] [place], [place] [address]Dr. Farhat Leal PROF CHEM 8 (BAS METB)on Anion gap [Moles/Vol] 15.5 mmol/L Normal [facility] Comment on above: Performed By: #### B MP ####[facility] [address]wahqwcyw23[address] [place], [place] [address]Dr. Farhat Elvis Calcium [Mass/Vol] 9.1 mg/dL Normal 8.5-10.1 [facility] Comment on above: Performed By: #### B MP ####[facility] Vrqobrsyla1604[address] [place], [place] [address]Dr. Farhat Leal Chloride [Moles/Vol] 92 mmol/L Critically low 98-107 [facility] Comment on above: Performed By: #### B MP ####[facility] Kmorsnesua83[address] [place], [place] [address]Dr. Farhat Elivs CO2 [Moles/Vol] 28.5 mmol/L Normal 21.0-32.0 [facility] Comment on above: Performed By: #### B MP ####[facility] Kviferwsik01[address] [place], [place] [address]Dr. Farhat Elvis Creatinine [Mass/Vol] 1.84 mg/dL Critically high 0.70-1.30 [facility] Comment on above: Performed By: #### B MP ####[facility] [address]qpsrwtcdv[address] [place], [place] [address]Dr. Farhat Leal EGFR-AF SYRIAN 44 mL/min/1.73m2 Critically low >=60 [facility] Comment on above: Performed By: #### B MP ####[facility] [address]bejneeeak[address] [place], [place] [address]Dr. Farhat Leal EGFR-NON AF SYRIAN 36 mL/min/1.73m2 Critically low >=60 [facility] Comment on above: Performed By: #### B MP ####[facility] Ndhkiawhcd[address] [place] [address]Dr. Farhat Leal Glucose [Mass/Vol] 267 mg/dL Critically high 74-106 T [facility] Comment on above: Performed By: #### B MP ####[facility] [id number] [place], [place] [address]Dr. Farhat Leal Potassium [Moles/Vol] 5.0 mmol/L Normal 3.5-5.1 [facility] Comment on above: Performed By: #### B MP ####[facility] Kqdtassrqo34[address] [place], [place] [address]Dr. Farhat Leal Sodium [Moles/Vol] 131 mmol/L Critically low 136-145 Th e [facility] Comment on above: Performed By: #### B MP ####[facility] Kxrhjttqbu82[address] [place], [place] [address]Dr. Farhat Leal Urea nitrogen [Mass/Vol] 76.0 mg/dL Critically high 7.0-18.0 [facility] Comment on above: Performed By: #### B MP ####[facility] Gxquwspiej60[address] [place], [place] [address]Dr. Farhat Leal Urea nitrogen/Creatinine [Mass ratio] 41.3 mg/mg Normal [facility] Comment on above: Performed By: #### B MP ####[facility] Fefocuzlgh3[address] [place], [place] [address]Dr. Farhat Leal PTT HEPARIN MONITORon 2021 aPTT Coag (Bld) [Time] 57.2 s Critically high 39.5-54. 2 [facility] Comment on above: Performed By: #### P TTHEP ####[facility] Blsidiwair3786[address] [place], [place] [address]Dr. Farhat Leal aPTT Coag (Bld) [Time] 74.7 s Critically high 39.5-54. 2 [facility] Comment on above: Result Comment: repe ated Performed By: #### P TTHEP ####[facility] Qfrjsfyqgs128[address] [place], [place] [address]Dr. Farhat Leal aPTT Coag (Bld) [Time] 45.5 s Normal 39.5-54.2 Th e [facility] Comment on above: Performed By: #### P TTHEP ####[facility] Ikxfuajbcm[address] [place] [address]Dr. Farhat Elvis CBC AUTO DIFFon 09-22-2021 BASO # 0.1 103/ul Normal 0.0-0.1 [facility] Comment on above: Performed By: #### C BC ####[facility] Drjdfgqpfb616[address] [place], [place] [address]Dr. Farhat Leal Basophils/100 WBC (Bld) 0.7 % Normal 0.2-2.0 [facility] Comment on above: Performed By: #### C BC ####[facility] Wcwqhaxhpe34[address] [place], [place] [address]Dr. Madelynlorri Elvis EO # 0.3 103/ul Normal 0.0-0.7 [facility] Comment on above: Performed By: #### C BC ####[facility] Mhfiexpsnh303[address] [place], [place] [address]Dr. Farhat Leal Eosinophils/100 WBC (Bld) 3.2 % Normal 0.9-7.0 [facility] Comment on above: Performed By: #### C BC ####[facility] Kmllsjuwnu9[address] [place], [place] [address]Dr. Farhat Elvis Erythrocyte distribution width (RBC) [Ratio] 12.5 % Normal 11.0-15.0 [facility] Comment on above: Performed By: #### C BC ####[facility] Njodmmxrji32[address] [place], [place] [address]Dr. Farhat Leal Hematocrit (Bld) [Volume fraction] 40.5 % Critically low 42.0-54.0 [facility] Comment on above: Performed By: #### C BC ####[facility] Xfnzyiumpt033[address] [place], [place] [address]Dr. Farhat Leal Hemoglobin (Bld) [Mass/Vol] 13.4 g/dL Critically low 14.0-18.0 [facility] Comment on above: Performed By: #### C BC ####[facility] Cydwmazzkn46[address] [place] [address]Dr. Farhat Leal IG # 0.11 10e3/ul Critically high 0.00-0.03 [facility] Comment on above: Performed By: #### C BC ####[facility] Acccktusnl7064 [place] [address]Dr. Farhat Leal IG % 1.3 % Critically high 0.0-0.5 The [facility] Comment on above: Performed By: #### C BC ####[facility] Pkdykfwfik[address] [place], [place] [address]Dr. Farhat Elvis LYMPH # 1.7 103/ul Normal 1.2-3.8 [facility] Comment on above: Performed By: #### C BC ####[facility] Shomvcldyo1594[address] [place], [place] [address]Dr. Farhat Elvis Lymphocytes/100 WBC (Bld) 19.6 % Critically low 20.5-60.0 [facility] Comment on above: Performed By: #### C BC ####[facility] Ydbqumjgyg4101[address] [place], [place] [address]DrSkylar Farhat Leal MANUAL DIFF REQ NO Normal The [facility] Comment on above: Performed By: #### C BC ####[facility] Tvvnddvrrf38[address] [place], [place] [address]Dr. Farhat Leal MCH (RBC) [Entitic mass] 31.1 pg Normal 25.9-34.0 [facility] Comment on above: Performed By: #### C BC ####[facility] Mrrbgtczrl7676[address] [place], [place] [address]DrSkylar Farhat Leal MCHC (RBC) [Mass/Vol] 33.1 g/dL Normal 29.9-35.2 [facility] Comment on above: Performed By: #### C BC ####[facility] Auksrgmunt1447[address] [place], [place] [address]DrSkylar Farhat Leal MCV (RBC) [Entitic vol] 94.0 fL Normal 80.0-94.0 [facility] Comment on above: Performed By: #### C BC ####[facility] Jpxdrstqsm4726[address] [place], [place] [address]Dr. Farhat Leal MONO # 1.1 103/ul Critically high 0.3-0.8 The [facility] Comment on above: Performed By: #### C BC ####[facility] Jeoqozgekd9[address] [place] [address]Dr. Farhat Leal Monocytes/100 WBC (Bld) 12.7 % Critically high 1.7-12.0 [facility] Comment on above: Performed By: #### C BC ####[facility] Fywgveiboi26[address] [place] [address]Dr. Farhat Leal NEUT # 5.3 103/ul Normal 1.4-6.5 [facility] Comment on above: Performed By: #### C BC ####[facility] Wswxmeybck8278 [place] [address]Dr. Farhat Elvis Neutrophils/100 WBC (Bld) 62.5 % Normal 43.0-75.0 [facility] Comment on above: Performed By: #### C BC ####[facility] Ncnqjxbxvs9969[address] [place], [place] [address]Dr. Farhat Leal Platelet mean volume (Bld) [Entitic vol] 10.1 fL Normal 9.5-13.5 [facility] Comment on above: Performed By: #### C BC ####[facility] Zjxdssimci0[address] [place], [place] [address]Dr. Farhat Elvis PLT 220 103/ul Normal 150-450 [facility] Comment on above: Performed By: #### C BC ####[facility] Igezcgsltp2627[address] [place], [place] [address]Dr. Farhat Leal RBC 4.31 106/ul Critically low 4.70-6.10 The [facility] Comment on above: Performed By: #### C BC ####[facility] Wbhgsyeqyf5[address] [place] [address]Dr. Madelynlorri Elvis WBC 8.4 103/ul Normal 4.0-11.0 [facility] Comment on above: Performed By: #### C BC ####[facility] Rfaqaniwmq8[address] [place] [address]Dr. Farhat Leal PROF CHEM 8 (BAS METB)on Anion gap [Moles/Vol] 15.5 mmol/L Normal [facility] Comment on above: Performed By: #### B MP ####[facility] Zekikulxyq1906 [place] [address]Dr. Farhat Leal Calcium [Mass/Vol] 8.9 mg/dL Normal 8.5-10.1 [facility] Comment on above: Performed By: #### B MP ####[facility] Hbmxykdllc0554 [place] [address]Dr. Farhat Leal Chloride [Moles/Vol] 92 mmol/L Critically low 98-107 [facility] Comment on above: Performed By: #### B MP ####[facility] Trtvhlzfus9[address] [place], [place] [address]Dr. Farhat Leal CO2 [Moles/Vol] 25.7 mmol/L Normal 21.0-32.0 [facility] Comment on above: Performed By: #### B MP ####[facility] Kruixvzhda873[address] [place], [place] [address]Dr. Farhat Leal Creatinine [Mass/Vol] 1.85 mg/dL Critically high 0.70-1.30 [facility] Comment on above: Performed By: #### B MP ####[facility] Hlkkuttsxs17[address] [place], [place] [address]Dr. Farhat Leal EGFR-AF SYRIAN 43 mL/min/1.73m2 Critically low >=60 [facility] Comment on above: Performed By: #### B MP ####[facility] Wxcioqolex9804[address] [place], [place] [address]Dr. Farhat Leal EGFR-NON AF SYRIAN 36 mL/min/1.73m2 Critically low >=60 [facility] Comment on above: Performed By: #### B MP ####[facility] Mglopgndyh9[address] [place], [place] [address]Dr. Farhat Leal Glucose [Mass/Vol] 410 mg/dL Critically high 74-106 [facility] Comment on above: Performed By: #### B MP ####[facility] Xdmbpakuic707[address] [place], [place] [address]Dr. Farhat Leal Potassium [Moles/Vol] 5.2 mmol/L Critically high 3.5-5.1 [facility] Comment on above: Performed By: #### B MP ####[facility] Xjacpefplr0745[address] [place], [place] [address]Dr. Farhat Leal Sodium [Moles/Vol] 128 mmol/L Critically low 136-145 Th [facility] Comment on above: Performed By: #### B MP ####[facility] Hfbebeggrs245[address] [place], [place] [address]Dr. Farhat Leal Urea nitrogen [Mass/Vol] 75.0 mg/dL Critically high 7.0-18.0 [facility] Comment on above: Performed By: #### B MP ####[facility] Baetgogetv7216[address] [place], [place] [address]Dr. Farhat Leal Urea nitrogen/Creatinine [Mass ratio] 40.5 mg/mg Normal [facility] Comment on above: Performed By: #### B MP ####[facility] Odoefejugp030[address] [place], [place] [address]Dr. Farhat Leal PTT HEPARIN MONITORon 2021 aPTT Coag (Bld) [Time] 51.2 s Normal 39.5-54.2 Th [facility] Comment on above: Performed By: #### P TTHEP ####[facility] Pukevvavua18[address] [place], [place] [address]Dr. Farhat Leal aPTT Coag (Bld) [Time] 55.6 s Critically high 39.5-54. 2 [facility] Comment on above: Performed By: #### P TTHEP ####[facility] Hfvniuwzqm2624[address] [place], [place] [address]Dr. Farhat Leal aPTT Coag (Bld) [Time] 46.1 s Normal 39.5-54.2 [facility] Comment on above: Performed By: #### P TTHEP ####[facility] Jsmspnffak1337[address] [place], [place] [address]Dr. Farhat Leal aPTT Coag (Bld) [Time] 53.8 s Normal 39.5-54.2 Th e [facility] Comment on above: Performed By: #### P TTHEP ####[facility] Omvfnumjra8884[address] [place], [place] [address]Dr. Farhat Elvis CBC AUTO DIFFon 09-21-2021 BASO # 0.1 103/ul Normal 0.0-0.1 [facility] Comment on above: Performed By: #### C BC ####[facility] Enshetoeiw3489[address] [place], [place] [address]Dr. Farhat Leal Basophils/100 WBC (Bld) 0.8 % Normal 0.2-2.0 [facility] Comment on above: Performed By: #### C BC ####[facility] Wzezqroirz7669[address] [place], [place] [address]Dr. Farhat Leal EO # 0.4 103/ul Normal 0.0-0.7 [facility] Comment on above: Performed By: #### C BC ####[facility] Pzayvrzqgx1763[address] [place], [place] [address]Dr. Farhat Leal Eosinophils/100 WBC (Bld) 4.3 % Normal 0.9-7.0 [facility] Comment on above: Performed By: #### C BC ####[facility] Upjqldidcg0114[address] [place], [place] [address]Dr. Farhat Leal Erythrocyte distribution width (RBC) [Ratio] 12.5 % Normal 11.0-15.0 [facility] Comment on above: Performed By: #### C BC ####[facility] Ehtdmiqbtk907[address] [place], [place] [address]Dr. Farhat Leal Hematocrit (Bld) [Volume fraction] 40.8 % Critically low 42.0-54.0 [facility] Comment on above: Performed By: #### C BC ####[facility] Qkapoetjvs[address] [place], [place] [address]Dr. Farhat Leal Hemoglobin (Bld) [Mass/Vol] 13.5 g/dL Critically low 14.0-18.0 [facility] Comment on above: Performed By: #### C BC ####[facility] Pr[address]mvwlqn37[address] [place] [id number]. Farhat Leal IG # 0.10 10e3/ul Critically high 0.00-0.03 The [facility] Comment on above: Performed By: #### C BC ####[facility] Mmxroeeasa4731 [place] [address]Dr. Farhat Leal IG % 1.2 % Critically high 0.0-0.5 The [facility] Comment on above: Performed By: #### C BC ####[facility] Lkovwepapt1796 [place] [address]Dr. Farhat Elvis LYMPH # 1.3 103/ul Normal 1.2-3.8 [facility] Comment on above: Performed By: #### C BC ####[facility] Mtzrauhxhe7996 [place] [address]Dr. Farhat Elvis Lymphocytes/100 WBC (Bld) 15.4 % Critically low 20.5-60.0 [facility] Comment on above: Performed By: #### C BC ####[facility] Ouyefjjong29[address] [place] [address]Dr. Farhat Elvis MANUAL DIFF REQ NO Normal The [facility] Comment on above: Performed By: #### C BC ####[facility] Vypgmtcpss2525 [place] [address]Dr. Farhat Leal MCH (RBC) [Entitic mass] 31.0 pg Normal 25.9-34.0 [facility] Comment on above: Performed By: #### C BC ####[facility] Ardlojvypn7471 [place] [address]Dr. Farhat Leal MCHC (RBC) [Mass/Vol] 33.1 g/dL Normal 29.9-35.2 [facility] Comment on above: Performed By: #### C BC ####[facility] Jmrnndbmwo6355[address] [place], [place] [address]Dr. Farhat Leal MCV (RBC) [Entitic vol] 93.8 fL Normal 80.0-94.0 [facility] Comment on above: Performed By: #### C BC ####[facility] [address] [place] [id number]. Farhat Leal MONO # 1.2 103/ul Critically high 0.3-0.8 The [facility] Comment on above: Performed By: #### C BC ####[facility] Ngizlshspr9185 [place] [address]Dr. Farhat Elvis Monocytes/100 WBC (Bld) 13.6 % Critically high 1.7-12.0 [facility] Comment on above: Performed By: #### C BC ####[facility] Eddsqzphcz2058 [place] [address]Dr. Farhat Leal NEUT # 5.5 103/ul Normal 1.4-6.5 [facility] Comment on above: Performed By: #### C BC ####[facility] Qysvmmydgc079[address] [place], [place] [address]Dr. Farhat Leal Neutrophils/100 WBC (Bld) 64.7 % Normal 43.0-75.0 [facility] Comment on above: Performed By: #### C BC ####[facility] Abocdiewnc1919[address] [place], [place] [address]Dr. Farhat Elvis Platelet mean volume (Bld) [Entitic vol] 9.8 fL Normal 9.5-13.5 [facility] Comment on above: Performed By: #### C BC ####[facility] Kodvlspqtg8313[address] [place], [place] [address]Dr. Madelynlorri Elvis PLT 206 103/ul Normal 150-450 [facility] Comment on above: Performed By: #### C BC ####[facility] Lkilmawxbc8887[address] [place], [place] [address]Dr. Farhat Elvis RBC 4.35 106/ul Critically low 4.70-6.10 The [facility] Comment on above: Performed By: #### C BC ####[facility] Vudfwq[address] [place], [place] [address]Dr. Madelynlorri Elvis WBC 8.4 103/ul Normal 4.0-11.0 [facility] Comment on above: Performed By: #### C BC ####[facility] Oksoetavzp32[address] [place], [place] [address]Dr. Farhat Leal PROF CHEM 8 (BAS METB)on Anion gap [Moles/Vol] 12.3 mmol/L Normal [facility] Comment on above: Performed By: #### B MP ####[facility] Yrmlmwkbbi24[address] [place] [address]Dr. Farhat Leal Calcium [Mass/Vol] 8.6 mg/dL Normal 8.5-10.1 [facility] Comment on above: Performed By: #### B MP ####[facility] Izxhnwjcup2098 [place] [address]Dr. Farhat Leal Chloride [Moles/Vol] 94 mmol/L Critically low 98-107 [facility] Comment on above: Performed By: #### B MP ####[facility] V[address]jrxzcnjs9[address] [place], [place] [address]Dr. Farhat Leal CO2 [Moles/Vol] 30.8 mmol/L Normal 21.0-32.0 [facility] Comment on above: Performed By: #### B MP ####[facility] Phfochyshc3633[address] [place], [place] [address]Dr. Farhat Leal Creatinine [Mass/Vol] 1.99 mg/dL Critically high 0.70-1.30 [facility] Comment on above: Performed By: #### B MP ####[facility] Aldbxdhpiw7098[address] [place], [place] [address]Dr. Farhat Leal EGFR-AF SYRIAN 40 mL/min/1.73m2 Critically low >=60 [facility] Comment on above: Performed By: #### B MP ####[facility] Ronjokwymk9[address] [place] [address]Dr. Farhat Leal EGFR-NON AF SYRIAN 33 mL/min/1.73m2 Critically low >=60 [facility] Comment on above: Performed By: #### B MP ####[facility] Suroxvjbdt4586 [place] [address]Dr. Farhat Leal Glucose [Mass/Vol] 264 mg/dL Critically high 74-106 [facility] Comment on above: Performed By: #### B MP ####[facility] Glgxvhwxre0552 [place] [address]Dr. Farhat Leal Potassium [Moles/Vol] 5.1 mmol/L Normal 3.5-5.1 [facility] Comment on above: Performed By: #### B MP ####[facility] Pmkrwsngse414[address] [place], [place] [address]Dr. Farhat Leal Sodium [Moles/Vol] 132 mmol/L Critically low 136-145 Th [facility] Comment on above: Performed By: #### B MP ####[facility] Lyfkmexmkh5[address] [place], [place] [address]Dr. Farhat Leal Urea nitrogen [Mass/Vol] 72.0 mg/dL Critically high 7.0-18.0 [facility] Comment on above: Performed By: #### B MP ####[facility] Ewxwdcmgok0824[address] [place], [place] [address]Dr. Farhat Leal Urea nitrogen/Creatinine [Mass ratio] 36.2 mg/mg Normal [facility] Comment on above: Performed By: #### B MP ####[facility] Meyocsdfbh9475[address] [place], [place] [address]Dr. Farhat Leal PTT HEPARIN MONITORon 2021 aPTT Coag (Bld) [Time] 45.3 s Normal 39.5-54.2 [facility] Comment on above: Performed By: #### P TTHEP ####[facility] Dwtkkffaai9913[address] [place], [place] [address]Dr. Farhat Leal aPTT Coag (Bld) [Time] 68.0 s Critically high 39.5-54. 2 [facility] Comment on above: Performed By: #### P TTHEP ####[facility] Pbzlixcwzt549[address] [place], [place] [address]Dr. Farhat Leal aPTT Coag (Bld) [Time] 69.4 s Critically high 39.5-54. 2 [facility] Comment on above: Performed By: #### P TTHEP ####[facility] Zrdcwgpxwg3149[address] [place], [place] [address]Dr. Farhat Leal aPTT Coag (Bld) [Time] 53.5 s Normal 39.5-54.2 Th [facility] Comment on above: Performed By: #### P TTHEP ####[facility] Cjgjkmfdep4758 [place] [address]Dr. Farhat Elvis aPTT Coag (Bld) [Time] 126.9 s Critically high 39.5-54. 2 [facility] Comment on above: Performed By: #### P TTHEP ####[facility] Ihdhwhnxmz87[address] [place], [place] [address]Dr. Farhat Leal CBC AUTO DIFFon 09-20-2021 BASO # 0.1 103/ul Normal 0.0-0.1 [facility] Comment on above: Performed By: #### C BC ####[facility] Xofzkdikkq4798[address] [place], [place] [address]Dr. Farhat Leal Basophils/100 WBC (Bld) 0.7 % Normal 0.2-2.0 [facility] Comment on above: Performed By: #### C BC ####[facility] Lwmtrvcany4848[address] [place], [place] [address]Dr. Farhat Leal EO # 0.2 103/ul Normal 0.0-0.7 [facility] Comment on above: Performed By: #### C BC ####[facility] Lqkkaazeto20[address] [place], [place] [address]Dr. Farhat Leal Eosinophils/100 WBC (Bld) 3.2 % Normal 0.9-7.0 [facility] Comment on above: Performed By: #### C BC ####[facility] Uoddfqvjtt[address] [place], [place] [address]Dr. Farhat Leal Erythrocyte distribution width (RBC) [Ratio] 12.4 % Normal 11.0-15.0 [facility] Comment on above: Performed By: #### C BC ####[facility] Astjaxbqro3723[address] [place], [place] [address]Dr. Farhat Leal Hematocrit (Bld) [Volume fraction] 40.1 % Critically low 42.0-54.0 [facility] Comment on above: Performed By: #### C BC ####[facility] Qgihqieyot5330 [place] [id number]. Farhat Leal Hemoglobin (Bld) [Mass/Vol] 13.4 g/dL Critically low 14.0-18.0 [facility] Comment on above: Performed By: #### C BC ####[facility] Hvufbiypvg4135 [place] [id number]. Farhat Leal IG # 0.08 10e3/ul Critically high 0.00-0.03 [facility] Comment on above: Performed By: #### C BC ####[facility] Woccmbnymt2154 [place] [phone]. Farhat Leal IG % 1.1 % Critically high 0.0-0.5 The [facility] Comment on above: Performed By: #### C BC ####[facility] Xmeafifwvd0870 [place] [address]Dr. Farhat Leal LYMPH # 1.3 103/ul Normal 1.2-3.8 [facility] Comment on above: Performed By: #### C BC ####[facility] Yfgwzmcied2175 [place] [address]Dr. Farhat Leal Lymphocytes/100 WBC (Bld) 17.3 % Critically low 20.5-60.0 [facility] Comment on above: Performed By: #### C BC ####[facility] Dnnaeogoev7967 [place] [phone]. Farhat Leal MANUAL DIFF REQ NO Normal The [facility] Comment on above: Performed By: #### C BC ####[facility] Ouqqfdnhmm4942 [place] [address]Dr. Farhat Leal MCH (RBC) [Entitic mass] 31.2 pg Normal 25.9-34.0 [facility] Comment on above: Performed By: #### C BC ####[facility] Cifxuyfwvc7825 [place] [address]Dr. Farhat Leal MCHC (RBC) [Mass/Vol] 33.4 g/dL Normal 29.9-35.2 [facility] Comment on above: Performed By: #### C BC ####[facility] Snmktsckss9396 [place] [phone]. Farhat Leal MCV (RBC) [Entitic vol] 93.3 fL Normal 80.0-94.0 [facility] Comment on above: Performed By: #### C BC ####[facility] Vugeyiqgvk2805 [place] [phone]. Farhat Leal MONO # 0.9 103/ul Critically high 0.3-0.8 The [facility] Comment on above: Performed By: #### C BC ####[facility] Xbcpwjvsoe2082 [place] [phone]. Farhat Leal Monocytes/100 WBC (Bld) 12.4 % Critically high 1.7-12.0 [facility] Comment on above: Performed By: #### C BC ####[facility] [facility] [id number] [place], [place] [address]Dr. Farhat Leal NEUT # 4.7 103/ul Normal 1.4-6.5 [facility] Comment on above: Performed By: #### C BC ####[facility] F[address]nyafafzt[address] [place], [place] [address]Dr. Farhat Leal Neutrophils/100 WBC (Bld) 65.3 % Normal 43.0-75.0 [facility] Comment on above: Performed By: #### C BC ####[facility] Whxgmiksrt77[address] [place], [place] [address]Dr. Farhat Leal Platelet mean volume (Bld) [Entitic vol] 9.9 fL Normal 9.5-13.5 [facility] Comment on above: Performed By: #### C BC ####[facility] Zmosdseoqw[address] [place] [id number]. Farhat Leal PLT 180 103/ul Normal 150-450 [facility] Comment on above: Performed By: #### C BC ####[facility] H[address] [place], [place] [address]Dr. Farhat Leal RBC 4.30 106/ul Critically low 4.70-6.10 The [facility] Comment on above: Performed By: #### C BC ####[facility] I[address]wztmdin[address] [place] [address]Dr. Farhat Leal WBC 7.2 103/ul Normal 4.0-11.0 [facility] Comment on above: Performed By: #### C BC ####[facility] Oxjohpefgz6[address] [place], [place] [address]Dr. Farhat Leal PTT HEPARIN MONITORon 2021 aPTT Coag (Bld) [Time] 26.7 s Critically low 39.5-54.2 [facility] Comment on above: Performed By: #### P TTHEP ####[facility] Jpqagfdljt[address] [place], [place] [address]Dr. Farhat Leal aPTT Coag (Bld) [Time] 121.0 s Critically high 39.5-54. 2 [facility] Comment on above: Performed By: #### P TTHEP ####[facility] M[address]zjbw[address] [place], [place] [address]Dr. Farhat Leal aPTT Coag (Bld) [Time] 27.6 s Critically low 39.5-54.2 [facility] Comment on above: Performed By: #### P TTHEP ####[facility] Wsbajaeltb[address] [place], [place] [address]Dr. Farhat Leal aPTT Coag (Bld) [Time] 139.0 s Critically high 39.5-54. 2 [facility] Comment on above: Performed By: #### P TTHEP ####[facility] Mnwxeioesg[address] [place], [place] [address]Dr. Farhat Leal CBC AUTO DIFFon 09-19-2021 BASO # 0.0 103/ul Normal 0.0-0.1 [facility] Comment on above: Performed By: #### C BC ####[facility] Qsghgsgibb19[address] [place], [place] [address]Dr. Fahrat Leal Basophils/100 WBC (Bld) 0.5 % Normal 0.2-2.0 [facility] Comment on above: Performed By: #### C BC ####[facility] Unnorkpcfk3[address] [place], [place] [address]Dr. Farhat Leal EO # 0.2 103/ul Normal 0.0-0.7 [facility] Comment on above: Performed By: #### C BC ####[facility] [address]vbll[address] [place] [phone]. Farhat Leal Eosinophils/100 WBC (Bld) 2.6 % Normal 0.9-7.0 [facility] Comment on above: Performed By: #### C BC ####[facility] Mrfihoiekc9358 [place] [address]Dr. Farhat Leal Erythrocyte distribution width (RBC) [Ratio] 12.5 % Normal 11.0-15.0 [facility] Comment on above: Performed By: #### C BC ####[facility] Plvjyyapxw4813 [place] [address]Dr. Farhat Leal Hematocrit (Bld) [Volume fraction] 39.2 % Critically low 42.0-54.0 [facility] Comment on above: Performed By: #### C BC ####[facility] Icxttwykhw[address] [place], [place] [address]Dr. Farhat Leal Hemoglobin (Bld) [Mass/Vol] 13.3 g/dL Critically low 14.0-18.0 [facility] Comment on above: Performed By: #### C BC ####[facility] Fdtbrrfovt[address] [place] [address]Dr. Farhat Leal IG # 0.08 10e3/ul Critically high 0.00-0.03 The [facility] Comment on above: Performed By: #### C BC ####[facility] Uriipokkrc5667 [place] [phone]. Farhat Leal IG % 0.9 % Critically high 0.0-0.5 The [facility] Comment on above: Performed By: #### C BC ####[facility] Ozieguwzck20[address] [place], [place] [address]Dr. Farhat Leal LYMPH # 1.5 103/ul Normal 1.2-3.8 [facility] Comment on above: Performed By: #### C BC ####[facility] Ighugzqupe2435[address] [place], [place] [address]Dr. Farhat Leal Lymphocytes/100 WBC (Bld) 17.2 % Critically low 20.5-60.0 [facility] Comment on above: Performed By: #### C BC ####[facility] Cpewjapvhw6[address] [place] [address]Dr. Farhat Leal MANUAL DIFF REQ NO Normal The [facility] Comment on above: Performed By: #### C BC ####[facility] Eryymltwes84[address] [place] [address]Dr. Farhat Leal MCH (RBC) [Entitic mass] 31.7 pg Normal 25.9-34.0 [facility] Comment on above: Performed By: #### C BC ####[facility] Xcyxmtxouy15[address] [place], [place] [address]Dr. Farhat Leal MCHC (RBC) [Mass/Vol] 33.9 g/dL Normal 29.9-35.2 [facility] Comment on above: Performed By: #### C BC ####[facility] Yckkttzdtx[address] [place], [place] [address]Dr. Farhat Leal MCV (RBC) [Entitic vol] 93.3 fL Normal 80.0-94.0 [facility] Comment on above: Performed By: #### C BC ####[facility] Whxhdctoje96[address] [place], [place] [address]Dr. Farhat Leal MONO # 1.2 103/ul Critically high 0.3-0.8 The [facility] Comment on above: Performed By: #### C BC ####[facility] Ntngfwxnpe56[address] [place], [place] [address]Dr. Farhat Leal Monocytes/100 WBC (Bld) 13.7 % Critically high 1.7-12.0 [facility] Comment on above: Performed By: #### C BC ####[facility] Xcvwzxizwb95[address] [place], [place] [address]Dr. Farhat Leal NEUT # 5.5 103/ul Normal 1.4-6.5 [facility] Comment on above: Performed By: #### C BC ####[facility] Enahbmkrrr4836[address] [place], [place] [address]Dr. Farhat Leal Neutrophils/100 WBC (Bld) 65.1 % Normal 43.0-75.0 [facility] Comment on above: Performed By: #### C BC ####[facility] Bjtpnnxtmw4495 [place] [address]Dr. Farhat Leal Platelet mean volume (Bld) [Entitic vol] 9.6 fL Normal 9.5-13.5 [facility] Comment on above: Performed By: #### C BC ####[facility] Qgolrmizpi2294 [place] [address]Dr. Farhat Leal PLT 163 103/ul Normal 150-450 [facility] Comment on above: Performed By: #### C BC ####[facility] Xpcdglgidn3075 [place] [address]Dr. Farhat Leal RBC 4.20 106/ul Critically low 4.70-6.10 The [facility] Comment on above: Performed By: #### C BC ####[facility] Antwuxofly88[address] [place], [place] [address]Dr. Farhat Leal WBC 8.4 103/ul Normal 4.0-11.0 [facility] Comment on above: Performed By: #### C BC ####[facility] Sysxkzpktt47[address] [place] [address]Dr. Farhat Leal POINT OF CARE GLUCOSEon Glucose [Mass/Vol] 300 mg/dL Critically high 74-106 [facility] Comment on above: Performed By: #### P OCGLUC ####[facility] Ifdqouxtis414[address] [place], [place] [address]Dr. Farhat Elvis POTASSIUMon 09-19-2021 Potassium [Moles/Vol] 4.9 mmol/L Normal 3.5-5.1 [facility] Comment on above: Performed By: #### K ####[facility] Tsookgwdvn117[address] [place], [place] [address]Dr. Farhat Leal PTT HEPARIN MONITORon 2021 aPTT Coag (Bld) [Time] 23.4 s Critically low 39.5-54.2 [facility] Comment on above: Result Comment: repe ated Performed By: #### P TTHEP ####[facility] Iexfilsidc5[address] [place], [place] [address]Dr. Fahrat Leal aPTT Coag (Bld) [Time] 101.2 s Critically high 39.5-54. 2 [facility] Comment on above: Performed By: #### P TTHEP ####[facility] Ishheetejo3952[address] [place], [place] [address]Dr. Farhat Leal aPTT Coag (Bld) [Time] 81.0 s Critically high 39.5-54. 2 [facility] Comment on above: Result Comment: Test Repeated. Critical Value Verified Performed By: #### P TTHEP ####[facility] Yzycyhmizq[address] [place], [place] [address]Dr. Farhat Leal CBC AUTO DIFFon 09-18-2021 BASO # 0.0 103/ul Normal 0.0-0.1 [facility] Comment on above: Performed By: #### C BC ####[facility] Uzvnfvazko4[address] [place], [place] [address]Dr. Madelynlorri Leal Basophils/100 WBC (Bld) 0.4 % Normal 0.2-2.0 [facility] Comment on above: Performed By: #### C BC ####[facility] Rcdphywnjz5025[address] [place], [place] [address]Dr. aFrhat Leal EO # 0.1 103/ul Normal 0.0-0.7 [facility] Comment on above: Performed By: #### C BC ####[facility] Tefrsgrqdl7718[address] [place], [place] [address]Dr. Madelynlorri Leal Eosinophils/100 WBC (Bld) 0.8 % Critically low 0.9-7.0 [facility] Comment on above: Performed By: #### C BC ####[facility] Margrxufci7[address] [place], [place] [address]Dr. Farhat Leal Erythrocyte distribution width (RBC) [Ratio] 12.4 % Normal 11.0-15.0 [facility] Comment on above: Performed By: #### C BC ####[facility] Iuwfyktkzb8[address] [place] [address]Dr. Madelynlorri Leal Hematocrit (Bld) [Volume fraction] 41.7 % Critically low 42.0-54.0 [facility] Comment on above: Performed By: #### C BC ####[facility] Oegmigtwpv9052 [place] [address]Dr. Farhat Leal Hemoglobin (Bld) [Mass/Vol] 14.1 g/dL Normal 14.0-18.0 [facility] Comment on above: Performed By: #### C BC ####[facility] Mshjacfmhz9990 [place] [address]Dr. Farhat Leal IG # 0.06 10e3/ul Critically high 0.00-0.03 [facility] Comment on above: Performed By: #### C BC ####[facility] Fafybbvdpu1183 [place] [address]Dr. Farhat Leal IG % 0.6 % Critically high 0.0-0.5 The [facility] Comment on above: Performed By: #### C BC ####[facility] Wsfpsytdje8373 [place] [address]Dr. Farhat Leal LYMPH # 0.6 103/ul Critically low 1.2-3.8 The [facility] Comment on above: Performed By: #### C BC ####[facility] Gjjzcvuint0303 [place] [address]Dr. Farhat Leal Lymphocytes/100 WBC (Bld) 6.5 % Critically low 20.5-60.0 [facility] Comment on above: Performed By: #### C BC ####[facility] Dadxtrkygq5000 [place] [address]Dr. Farhat Leal MANUAL DIFF REQ NO Normal The [facility] Comment on above: Performed By: #### C BC ####[facility] Ozelcviaxa[address] [place], [place] [address]Dr. Farhat Leal MCH (RBC) [Entitic mass] 31.6 pg Normal 25.9-34.0 [facility] Comment on above: Performed By: #### C BC ####[facility] Otvihlfuus[address] [place] [phone]. Farhat Leal MCHC (RBC) [Mass/Vol] 33.8 g/dL Normal 29.9-35.2 [facility] Comment on above: Performed By: #### C BC ####[facility] Qwlbmchnry1387 [place] [phone]. Farhat Leal MCV (RBC) [Entitic vol] 93.5 fL Normal 80.0-94.0 [facility] Comment on above: Performed By: #### C BC ####[facility] Liulxagsua3664 [place] [address]Dr. Farhat Leal MONO # 1.0 103/ul Critically high 0.3-0.8 The [facility] Comment on above: Performed By: #### C BC ####[facility] Ezaimxberk2190 [place] [address]Dr. Farhat Leal Monocytes/100 WBC (Bld) 10.4 % Normal 1.7-12.0 [facility] Comment on above: Performed By: #### C BC ####[facility] Nobvqnofbd7611 [place] [address]Dr. Farhat Leal NEUT # 7.8 103/ul Critically high 1.4-6.5 The [facility] Comment on above: Performed By: #### C BC ####[facility] Zugydoqdej9446 [place] [address]Dr. Farhat Leal Neutrophils/100 WBC (Bld) 81.3 % Critically high 43.0-75.0 [facility] Comment on above: Performed By: #### C BC ####[facility] Ufsfejqvum7762 [place] [address]Dr. Farhat Leal Platelet mean volume (Bld) [Entitic vol] 9.9 fL Normal 9.5-13.5 [facility] Comment on above: Performed By: #### C BC ####[facility] Gygrhcqqnx7883 [place] [address]Dr. Farhat Leal PLT 169 103/ul Normal 150-450 [facility] Comment on above: Performed By: #### C BC ####[facility] T[address]vvsjcv3667 [place], [place] [address]Sx. Farhat Leal RBC 4.46 106/ul Critically low 4.70-6.10 The [facility] Comment on above: Performed By: #### C BC ####[facility] Rsqkjkfvrb4623 [place], [place] [address]Tj. Farhat Leal WBC 9.6 103/ul Normal 4.0-11.0 [facility] Comment on above: Performed By: #### C BC ####[facility] Zzsndczvjt3743 [place] [phone]. Farhat Leal BASO # 0.0 103/ul Normal 0.0-0.1 [facility] Comment on above: Performed By: #### C BC ####[facility] Lbfwffnjzn5692 [place] [address]Dr. Farhat Leal Basophils/100 WBC (Bld) 0.4 % Normal 0.2-2.0 [facility] Comment on above: Performed By: #### C BC ####[facility] Uriahgxfys0515 [place] [address]Dr. Farhat Leal EO # 0.1 103/ul Normal 0.0-0.7 [facility] Comment on above: Performed By: #### C BC ####[facility] Hswtzudqsd4349 [place] [address]Dr. Farhat Leal Eosinophils/100 WBC (Bld) 1.1 % Normal 0.9-7.0 [facility] Comment on above: Performed By: #### C BC ####[facility] Nxxreevrte4434 [place] [phone]. Farhat Leal Erythrocyte distribution width (RBC) [Ratio] 12.6 % Normal 11.0-15.0 [facility] Comment on above: Performed By: #### C BC ####[facility] Nuvatpammk5819 [place] [phone]. Farhat Leal Hematocrit (Bld) [Volume fraction] 40.8 % Critically low 42.0-54.0 [facility] Comment on above: Performed By: #### C BC ####[facility] Bwznlfoyno8902 [place] [phone]. Farhat Leal Hemoglobin (Bld) [Mass/Vol] 13.6 g/dL Critically low 14.0-18.0 [facility] Comment on above: Performed By: #### C BC ####[facility] Enzdljipep9647 [place] [phone]. Farhat Leal IG # 0.08 10e3/ul Critically high 0.00-0.03 [facility] Comment on above: Performed By: #### C BC ####[facility] Kbtteduwtv8982 [place] [address]Dr. Farhat Leal IG % 0.9 % Critically high 0.0-0.5 The [facility] Comment on above: Performed By: #### C BC ####[facility] Cowzxrukjf74[address] [place], [place] [address]Dr. Farhat Leal LYMPH # 0.8 103/ul Critically low 1.2-3.8 The [facility] Comment on above: Performed By: #### C BC ####[facility] Cqhaxdweku2104 [place] [address]Dr. Farhat Leal Lymphocytes/100 WBC (Bld) 8.7 % Critically low 20.5-60.0 [facility] Comment on above: Performed By: #### C BC ####[facility] Kpcuobuhlr0287 [place] [address]Dr. Farhat Leal MANUAL DIFF REQ NO Normal The [facility] Comment on above: Performed By: #### C BC ####[facility] Jjlrbwugwl97[address] [place], [place] [address]Dr. Farhat Leal MCH (RBC) [Entitic mass] 31.6 pg Normal 25.9-34.0 [facility] Comment on above: Performed By: #### C BC ####[facility] Lkkkduoycn2478 [place] [address]Dr. Farhat Leal MCHC (RBC) [Mass/Vol] 33.3 g/dL Normal 29.9-35.2 [facility] Comment on above: Performed By: #### C BC ####[facility] Emdbpvgcef5088 [place] [phone]. Farhat Leal MCV (RBC) [Entitic vol] 94.9 fL Critically high 80.0-94.0 [facility] Comment on above: Performed By: #### C BC ####[facility] Nqtzwbypde7945 [place] [phone]. Farhat Leal MONO # 1.0 103/ul Critically high 0.3-0.8 The [facility] Comment on above: Performed By: #### C BC ####[facility] Wsdhfmsirv4274 [place] [phone]. Farhat Leal Monocytes/100 WBC (Bld) 11.3 % Normal 1.7-12.0 [facility] Comment on above: Performed By: #### C BC ####[facility] Ddzxbxcfno346[address] [place], [place] [address]Dr. Farhat Leal NEUT # 6.9 103/ul Critically high 1.4-6.5 The [facility] Comment on above: Performed By: #### C BC ####[facility] Yrybcsdkty[address] [place], [place] [address]Dr. Farhat Leal Neutrophils/100 WBC (Bld) 77.6 % Critically high 43.0-75.0 [facility] Comment on above: Performed By: #### C BC ####[facility] Ztkwpgwjkn[address] [place], [place] [address]Dr. Farhat Leal Platelet mean volume (Bld) [Entitic vol] 9.7 fL Normal 9.5-13.5 [facility] Comment on above: Performed By: #### C BC ####[facility] Bbfpfdmhgr[address] [place], [place] [address]Dr. Farhat Leal PLT 171 103/ul Normal 150-450 [facility] Comment on above: Performed By: #### C BC ####[facility] Rshtuxtlor[address] [place], [place] [address]Dr. Farhat Leal RBC 4.30 106/ul Critically low 4.70-6.10 The [facility] Comment on above: Performed By: #### C BC ####[facility] Mcstskxgsh2061 [place], [place] [address]Gg. Farhat Leal WBC 8.9 103/ul Normal 4.0-11.0 [facility] Comment on above: Performed By: #### C BC ####[facility] Kclnjshprj1903 [place], [place] [address]Qa. Farhat Leal Covid-19 PCR (CVDTBH)on SARS-CoV-2 (COVID-19) RNA JOSH+probe Ql (Unsp spec) Not detected Normal NOT DETECTED [facility] Comment on above: Result [...] for this test is supported by the Direct Support Professional of Health and Human Service's declaration that [...] be used). Performed By: #### C VDTBH ####[facility] Xzwxvymfan3732 [place] [address]Dr. Madelynlorri Leal PROF 14(COMP METB)on 022 Albumin [Mass/Vol] 2.6 g/dL Critically low 3.4-5.0 [facility] Comment on above: Performed By: #### C MP ####[facility] Otpdymfkfp3995 [place] [address]Dr. Madelynlorri Leal Albumin/Globulin [Mass ratio] 0.7 {ratio} Normal [facility] Comment on above: Performed By: #### C MP ####[facility] Dirrizldek5779 [place] [address]Dr. Farhat Leal ALP [Catalytic activity/Vol] 88 U/L Normal 46-116 [facility] Comment on above: Performed By: #### C MP ####[facility] Smmjthrmjd5682 [place] [address]Dr. Farhat Leal ALT [Catalytic activity/Vol] 15 U/L Critically low 16-63 [facility] Comment on above: Performed By: #### C MP ####[facility] Uitfilfmzn9536 [place] [address]Dr. Farhat Elvis Anion gap [Moles/Vol] 11.7 mmol/L Normal [facility] Comment on above: Performed By: #### C MP ####[facility] Bvzlslepiw3140 [place] [address]Dr. Farhat Elvis AST [Catalytic activity/Vol] 25 U/L Normal 15-37 [facility] Comment on above: Performed By: #### C MP ####[facility] Oatintdkaa8365 [place] [address]Dr. Farhat Elvis Bilirubin [Mass/Vol] 0.6 mg/dL Normal 0.2-1.0 [facility] Comment on above: Performed By: #### C MP ####[facility] Mfknbwdnup3991 [place] [address]Dr. Farhat Elvis Calcium [Mass/Vol] 8.9 mg/dL Normal 8.5-10.1 [facility] Comment on above: Performed By: #### C MP ####[facility] Nhwgdnoomw7984 [place] [address]Dr. Farhat Elvis Chloride [Moles/Vol] 93 mmol/L Critically low 98-107 [facility] Comment on above: Performed By: #### C MP ####[facility] Caamqmvdrl1747 [place] [address]Dr. Farhat Leal CO2 [Moles/Vol] 28.9 mmol/L Normal 21.0-32.0 The [facility] Comment on above: Performed By: #### C MP ####[facility] Wmaewqyhfd2261 [place] [address]Dr. Farhat Leal Creatinine [Mass/Vol] 2.09 mg/dL Critically high 0.70-1.30 [facility] Comment on above: Performed By: #### C MP ####[facility] Ftloceaezn3759 [place] [address]Dr. Farhat Leal EGFR-AF SYRIAN 38 mL/min/1.73m2 Critically low >=60 [facility] Comment on above: Performed By: #### C MP ####[facility] Ftgqproqsm0396 [place] [address]Dr. Farhat Elvis EGFR-NON AF SYRIAN 31 mL/min/1.73m2 Critically low >=60 [facility] Comment on above: Performed By: #### C MP ####[facility] Vgnrmhyhnf[address] [place], [place] [address]Dr. Farhat Elvis Globulin (S) [Mass/Vol] 3.7 g/dL Normal [facility] Comment on above: Performed By: #### C MP ####[facility] Lpvaunalgc13[address] [place], [place] [address]Dr. Farhat Elvis Glucose [Mass/Vol] 214 mg/dL Critically high 74-106 [facility] Comment on above: Performed By: #### C MP ####[facility] Hchqvvgkrj7[address] [place], [place] [address]Dr. Madelynlorri Elvis Potassium [Moles/Vol] 5.6 mmol/L Critically high 3.5-5.1 [facility] Comment on above: Performed By: #### C MP ####[facility] Jziufmadyz9[address] [place], [place] [address]Dr. Farhat Leal Protein [Mass/Vol] 6.3 g/dL Critically low 6.4-8.2 Th [facility] Comment on above: Performed By: #### C MP ####[facility] Ubpjzcuyvw[address] [place], [place] [address]Dr. Madelynlorri Elvis Sodium [Moles/Vol] 128 mmol/L Critically low 136-145 Th [facility] Comment on above: Performed By: #### C MP ####[facility] Pfglmekmet7624[address] [place], [place] [address]Dr. Farhat Leal Urea nitrogen [Mass/Vol] 65.0 mg/dL Critically high 7.0-18.0 [facility] Comment on above: Performed By: #### C MP ####[facility] [address]rwvrfzl[address] [place], [place] [address]Dr. Farhat Leal Urea nitrogen/Creatinine [Mass ratio] 31.1 mg/mg Normal [facility] Comment on above: Performed By: #### C MP ####[facility] [facility] [id number] [place], [place] [address]Dr. Madelynlorri Elvis Albumin [Mass/Vol] 2.5 g/dL Critically low 3.4-5.0 [facility] Comment on above: Performed By: #### T MYRIAM, CMP ####[facility] [address] [place], [place] [address]Dr. Farhat Leal Albumin/Globulin [Mass ratio] 0.7 {ratio} Normal [facility] Comment on above: Performed By: #### T MYRIAM, CMP ####[facility] [address] [place], [place] [address]Dr. Madelynlorri Leal ALP [Catalytic activity/Vol] 83 U/L Normal 46-116 [facility] Comment on above: Performed By: #### T MYRIAM, CMP ####[facility] [address] [place], [place] [address]Dr. Farhat Leal ALT [Catalytic activity/Vol] 16 U/L Normal 16-63 [facility] Comment on above: Performed By: #### T MYRIAM, CMP ####[facility] [address] [place], [place] [address]Dr. Farhat Leal Anion gap [Moles/Vol] 9.7 mmol/L Normal [facility] Comment on above: Performed By: #### T MYRIAM, CMP ####[facility] [address] [place], [place] [address]Dr. Farhat Leal AST [Catalytic activity/Vol] 27 U/L Normal 15-37 [facility] Comment on above: Performed By: #### T SH, CMP ####[facility] [address] [place], [place] [address]Dr. Farhat Leal Bilirubin [Mass/Vol] 0.5 mg/dL Normal 0.2-1.0 [facility] Comment on above: Performed By: #### T SH, CMP ####[facility] [address] [place], [place] [address]Dr. Farhat Leal Calcium [Mass/Vol] 8.8 mg/dL Normal 8.5-10.1 [facility] Comment on above: Performed By: #### T SH, CMP ####[facility] [address] [place], [place] [address]Dr. Farhat Leal Chloride [Moles/Vol] 95 mmol/L Critically low 98-107 [facility] Comment on above: Performed By: #### T MYRIAM, CMP ####[facility] Aif[address]jud[address] [place], [place] [address]Dr. Farhat Leal CO2 [Moles/Vol] 30.5 mmol/L Normal 21.0-32.0 [facility] Comment on above: Performed By: #### T MYRIAM, CMP ####[facility] [address] [place], [place] [address]Dr. Farhat Leal Creatinine [Mass/Vol] 2.18 mg/dL Critically high 0.70-1.30 [facility] Comment on above: Performed By: #### T MYRIAM, CMP ####[facility] [address] [place], [place] [address]Dr. Farhat Leal EGFR-AF SYRIAN 36 mL/min/1.73m2 Critically low >=60 [facility] Comment on above: Performed By: #### T MYRIAM, CMP ####[facility] Rhcaktraxl[address] [place], [place] [address]Dr. Farhat Leal EGFR-NON AF SYRIAN 30 mL/min/1.73m2 Critically low >=60 [facility] Comment on above: Performed By: #### T SH, CMP ####[facility] [address]up[address]nuv[address] [place], [place] [address]Dr. Farhat Leal Globulin (S) [Mass/Vol] 3.5 g/dL Normal [facility] Comment on above: Performed By: #### T MYRIAM, CMP ####[facility] [address] [place] [address]Dr. Madelynlorri Leal Glucose [Mass/Vol] 141 mg/dL Critically high 74-106 T [facility] Comment on above: Performed By: #### T SH, CMP ####[facility] [address] [place], [place] [address]Dr. Farhat Leal Potassium [Moles/Vol] 5.2 mmol/L Critically high 3.5-5.1 [facility] Comment on above: Performed By: #### T SH, CMP ####[facility] T[address]so[address] [place], [place] [address]Dr. Farhat Leal Protein [Mass/Vol] 6.0 g/dL Critically low 6.4-8.2 [facility] Comment on above: Performed By: #### T MYRIAM, CMP ####[facility] [address] [place], [place] [address]Dr. Farhat Leal Sodium [Moles/Vol] 130 mmol/L Critically low 136-145 [facility] Comment on above: Performed By: #### T MYRIAM, CMP ####[facility] [address] [place], [place] [address]Dr. Farhat Leal Urea nitrogen [Mass/Vol] 63.0 mg/dL Critically high 7.0-18.0 [facility] Comment on above: Performed By: #### T MYRIAM, CMP ####[facility] Cys[address] [place], [place] [address]Dr. Farhat Leal Urea nitrogen/Creatinine [Mass ratio] 28.9 mg/mg Normal [facility] Comment on above: Performed By: #### T MYRIAM, CMP ####[facility] F[address] [place], [place] [address]Dr. Farhat Leal PROTIMEon 09-18-2021 INR Coag (PPP) [Relative time] 1.06 {INR} Normal [facility] Comment on above: Performed By: #### P T, PTT ####[facility] [address] [place], [place] [address]Dr. Farhat Leal INR GUIDELINES SEE BELOW Normal [facility] Comment on above: Result Comment: MALINA RED INR: 2.0 - 3.0 CONDITIONS NOT LISTED BELOW 2.5 - 3.5 FOR PROSTHETIC HEART VALVE REPLACEMENT 2.5 - 3.5 RECURRENT THROMBOSIS Performed By: #### P T, PTT ####[facility] [address] [place] [address]Dr. Farhat Leal PT Coag (PPP) [Time] 11.4 s Normal 9.0-11.6 [facility] Comment on above: Performed By: #### P T, PTT ####[facility] [address] [place] [address]Dr. Madelynlorri Leal PTTon 09-18-2021 aPTT Coag (Bld) [Time] 27.9 s Normal 22.3-36.2 [facility] Comment on above: Performed By: #### P T, PTT ####[facility] [address] [place] [address]Dr. Farhat Leal TSHon 09-18-2021 TSH 7.099 uIU/mL Critically high 0.358-3.740 [facility] Comment on above: Performed By: #### T SH, CMP ####[facility] [address] [place], [place] [address]Dr. Farhat Leal US SALOME DOP LEG RTon 09-19-19 US SALOME DOP LEG RT Normal [facility] XR CHEST 1 Von 09-18-2021 XR CHEST 1 V Normal [facility] XR HIP RT 2 3V W PELVISon XR HIP RT 2 3V W PELVIS Normal [facility] Vital Signs Date Time Vital Sign Value Performing Clinician Facility 03-18-2023 13:37-0500 Body temperature 98.01 [degF] [place] [employer] DO Work Phone: [facility] 03-18-2023 13:37-0500 Diastolic blood pressure 64 mm[Hg] [place] [employer] DO Work Phone: [facility] 03-18-2023 13:37-0500 Heart rate 72 /min [facility] DO Work Phone: [facility] 03-18-2023 13:37-0500 SaO2% (BldA) [Mass fraction] 98 % Ni Sandhuick DO Work Phone: [facility] 03-18-2023 13:37-0500 Systolic blood pressure 118 mm[Hg] Ni Whiteznick DO Work Phone: [facility] 07-20-2022 13:35-0400 Body temperature 97.4 [degF] DO Devon Ball Work Phone: [facility] 07-20-2022 13:35-0400 Diastolic blood pressure 50 mm[Hg] DO Devon Ball Work Phone: [facility] 07-20-2022 13:35-0400 Heart rate 67 /min DO Devon Ball Work Phone: [facility] 07-20-2022 13:35-0400 Respiratory rate 20 /min DO Devon Ball Work Phone: [facility] 07-20-2022 13:35-0400 Systolic blood pressure 98 mm[Hg] DO Devon Ball Work Phone: [facility] 06-29-2022 14:46-0400 Body height 193.04 cm DO Devon Ball Work Phone: [facility] 02-26-2022 13:11-0500 Body temperature 96.6 [degF] Hina Peterson MD Work Phone: [facility] 02-26-2022 13:11-0500 Diastolic blood pressure 75 mm[Hg] Hina Peterson MD Work Phone: [facility] 02-26-2022 13:11-0500 Heart rate 75 /min Hina Peterson MD Work Phone: [facility] 02-26-2022 13:11-0500 Systolic blood pressure 88 mm[Hg] Hina Peterson MD Work Phone: [facility] 02-05-2022 08:29-0500 Body temperature 96.69 [degF] [facility] Work Phone: [facility] 02-05-2022 08:29-0500 Diastolic blood pressure 42 mm[Hg] [facility] Work Phone: [facility] 02-05-2022 08:29-0500 Heart rate 79 /min [facility] Work Phone: [facility] 02-05-2022 08:29-0500 SaO2% (BldA) [Mass fraction] 100 % [facility] Work Phone: [facility] 02-05-2022 08:29-0500 Systolic blood pressure 72 mm[Hg] [facility] Work Phone: [facility] 01-12-2022 11:00-0500 Diastolic blood pressure 54 mm[Hg] Alissa Major SEWING MACHINE [employer].REAL ESTATE DIRECTOR Work Phone: [facility] 01-12-2022 11:00-0500 Heart rate 88 /min Alissa Major SEWING MACHINE [employer] W[employer].REAL ESTATE DIRECTOR Work Phone: [facility] 01-12-2022 11:00-0500 SaO2% (BldA) [Mass fraction] 93 % Alissa Major SEWING MACHINE [employer] W[employer].REAL ESTATE DIRECTOR Work Phone: [facility] 01-12-2022 11:00-0500 Systolic blood pressure 96 mm[Hg] Alissa Major SEWING MACHINE [employer] W[employer].REAL ESTATE DIRECTOR Work Phone: [facility] 01-12-2022 10:12-0500 Body temperature 97.9 [degF] Alissa Major SEWING MACHINE [employer] W[employer]ER.REAL ESTATE DIRECTOR Work Phone: [facility] 01-12-2022 10:12-0500 Respiratory rate 18 /min Alissa Major SEWING MACHINE [employer] W[employer]ER.REAL ESTATE DIRECTOR Work Phone: [facility] 11-17-2021 15:59-0400 Body height 193 cm No Reeder DO Work Phone: [facility] 11-17-2021 15:59-0400 Body weight 111.58 kg No Reeder DO Work Phone: [facility] 11-17-2021 15:59-0400 Diastolic blood pressure 59 mm[Hg] No Reeder DO Work Phone: [facility] 11-17-2021 15:59-0400 Heart rate 86 /min No Reeder DO Work Phone: [facility] 11-17-2021 15:59-0400 SaO2% (BldA) [Mass fraction] 97 % No Reeder DO Work Phone: [facility] 11-17-2021 15:59-0400 Systolic blood pressure 104 mm[Hg] No Reeder DO Work Phone: [facility] Encounters Encounter Date Encounter Type Care Provider Facility Start: 05-19-2023 End: 05-19-2023 ambulatory [facility] Start: 04-11-2023 End: 04-11-2023 ambulatory Devon Moreira Other [employer] Other Start: 04-11-2023 Telephone encounter Devon Moreira [facility] Start: 03-18-2023 End: 03-18-2023 ambulatory NI CABRERA Not Available Start: 03-18-2023 End: 03-18-2023 Office outpatient visit 25 minutes Ni Cabrera DO Work Phone: [facility] [address] Comment on above: 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 ([facility]/HCC) (Primary Dx); 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); 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); Type 1 diabetes mellitus with hypoglycemia and without coma (CMS/HCC); 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 ([facility]/HCC) Start: 02-17-2023 End: 02-17-2023 ambulatory Devon Moreira Other [facility] Other Start: 02-17-2023 Telephone encounter Devon NUNEZ [facility] Start: 01-14-2023 End: 01-14-2023 ambulatory Devon Moreira Other [facility] Other Start: 01-14-2023 Sbsq nursing facil c are/day minor complj 15 min Devon Moreira [facility] Start: 12-10-2022 End: 12-10-2022 ambulatory Devon Moreira Other [facility] Other Start: 12-10-2022 Sbsq nursing facil c are/day minor complj 15 min Devon Moreira [facility] Start: 11-12-2022 End: 11-12-2022 ambulatory Devon Moreira Other [facility] Other Start: 11-12-2022 Sbsq nursing facil c are/day minor complj 15 min [facility] Start: 10-16-2022 Refill Asia Pike MD Work Phone: [facility] Comment on above: Med Change Request Start: 10-12-2022 End: 10-12-2022 ambulatory Devon Moreira Other [facility] Other Start: 10-12-2022 Telephone encounter Devon Moreira [facility] Start: 10-08-2022 End: 10-08-2022 ambulatory Devon Moreira Other [facility] Other Start: 10-08-2022 Sbsq nursing facil c are/day new problem 25 min [facility] Start: 09-22-2022 [facility]: Rx Refills Start: 09-10-2022 End: 09-10-2022 ambulatory Devon Moreira Other [facility] Other Start: 09-10-2022 Sbsq nursing facil c are/day new problem 25 min [facility] Start: 09-09-2022 End: 09-09-2022 ambulatory [facility] Start: 08-06-2022 End: 08-06-2022 ambulatory Devon Moreira Other [facility] Other Start: 08-06-2022 Sbsq nursing facil c are/day new problem 25 min [facility] Start: 07-22-2022 End: 07-22-2022 ambulatory Devon Moreira Other [facility] Other Start: 07-22-2022 Telephone encounter Devon NUNEZ [facility] Start: 07-20-2022 End: 07-20-2022 ambulatory Sadia Aguilar Facility:[facility] Start: 07-20-2022 End: 07-20-2022 ambulatory DO Devon Moreira Work Phone: [facility] Work Phone: Start: 07-20-2022 End: 07-20-2022 Discharged Recurring DO Devon Moreira Work Phone: [facility] [place] Work Phone: Start: 07-13-2022 End: 07-13-[address] DEVON MOREIRA Facility:[facility] Start: 07-10-2022 End: 07-10-[address] DEVON MOREIRA Facility:[facility] Start: 07-03-2022 End: 07-03-[address] DEVON MOREIRA Facility:[facility] Start: 06-26-2022 End: 06-26-[address] DEVON MOREIRA Facility:[facility] Start: 06-26-2022 End: 06-26-[address] DEVON MOREIRA Facility:[facility] Start: 06-25-2022 End: 06-25-2022 ambulatory Devon Moreira Other [facility] Other Start: 06-25-2022 Sbsq nursing facil c are/day minor complj 15 min Devon Moreira [facility] Start: 06-19-2022 End: 06-19-[address] DEVON MOREIRA Facility:[facility] Start: 06-15-2022 End: 07-15-2022 ambulatory SHAIKH Kate MURRAY Facility:[facility] Start: 06-12-2022 End: 06-12-[address] DOCTOR WALSH Facility:[facility] Start: 06-05-2022 Sbsq nursing facil c are/day new problem 25 min Devon Moreira [facility] Start: 06-05-2022 End: 06-05-[address] DEVON MOREIRA [facility] [employer] Other Start: 05-29-2022 End: 05-29-[address] DEVON MOREIRA Facility:[facility] Start: 05-22-2022 End: 05-22-[address] DEVON MOREIRA Facility:[facility] Start: 05-20-2022 End: 05-20-[address] DEVON MOREIRA Facility:[facility] Start: 05-18-2022 End: 06-12-2022 ambulatory SHAIKH Kate MURRAY Facility:[facility] Start: 05-15-2022 End: 05-15-[address] DEVNO MOREIRA Facility:[facility] Start: 05-13-2022 End: 05-13-2022 ambulatory Van Olivarez SEWING MACHINE [employer].REAL ESTATE DIRECTOR Work Phone: [facility] Comment on above: results Start: 05-13-2022 E-mail encounter fro m caregiver Van Oliavrez APRN.REAL ESTATE DIRECTOR Work Phone: [facility] Start: 05-08-2022 End: 05-08-[address] DEVON MOREIRA Facility:[facility] Start: 05-07-2022 End: 05-07-2022 ambulatory Devon Moreira Other [facility] [employer] Other Start: 05-07-2022 Sbs nursing facil c are/day new problem 25 min Devon Moreira [facility] Start: 05-06-2022 End: 05-06-2022 ambulatory [...] MOREIRA Facility:[facility] Start: 04-02-2022 ambulatory Van cortes APRN.REAL ESTATE DIRECTOR Work Phone: [facility] Start: 04-01-2022 End: 04-01-[address] DEVON MOREIRA Facility:[facility] Start: 03-22-2022 Refill Asia Pike MD Work Phone: [facility] Comment on above: Med Change Request Start: 03-21-2022 ambulatory SHAIKH Kate MURRAY Facilit y:[facility]1 Start: 03-11-2022 End: 03-11-[address] DEVON MOREIRA Facility:[facility] Start: 02-27-2022 Refill Arnulfovic Kareem [facility] Comment on above: Rx Refills Start: 02-26-2022 End: 02-26-2022 ambulatory DEVON MOREIRA Facility:[facility] Start: 02-26-2022 End: 02-26-2022 Patient encounter [...] Start: 02-05-2022 End: 02-06-2022 ambulatory ARTUR GARCIAERVARY Facility:[facility] Start: 02-05-2022 End: 02-05-2022 Patient encounter procedure [facility] Work Phone: [facility] Comment on above: Kidney replaced by t ransplant (Primary Dx); 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; correction current use of immunosuppressive drug Start: 01-26-2022 End: 01-26-[address] DEVON MOREIRA Facility:[facility] Start: 01-20-2022 Telephone encounter Van Olivarez APRN.REAL ESTATE DIRECTOR Work Phone: [facility] Comment on above: Results Start: 01-19-2022 End: 01-19-[address] DEVON MOREIRA Facility:[facility] Start: 01-16-2022 ambulatory SHAIKH Kate MURRAY Facilit y:[facility]1 Start: 01-12-2022 End: 01-12-2022 Subsequent hospital visit by physician Alissa Chavira APRN.REAL ESTATE DIRECTOR Work Phone: [facility] Comment on above: ILIANA (acute kidney in jury) (HCC) [N17.9] Start: 12-30-2021 End: 12-30-2021 ambulatory Paresh Fonseca MD Work Phone: Infectious Disease Comment on above: MRSA bacteremia (Arabella munira Dx); Diabetic foot ulcer with osteomyelitis (HCC) Start: 12-30-2021 End: 12-30-2021 Telemedicine consultation with patient Paresh Fonseca MD Work Phone: [facility] Start: 12-29-2021 End: 12-29-[address] DEVON [...] Start: 12-08-2021 Orders Only Artur Jennyfer soto SEWING MACHINE [employer]BIN WINDER.REAL ESTATE DIRECTOR Work Phone: [facility] Comment on above: Kidney replaced by t ransplant (Primary Dx) Start: 12-07-2021 ambulatory Paresh Fonseca MD Work Phone: [facility] Comment on above: CoPat Start (copat s top 12/27/21) Start: 12-05-2021 Telephone encounter Paresh Fonseca MD Work Phone: Infectious Disease Comment on above: Patient Update (evus held discussion/) Start: 12-01-2021 Follow-up encounter [facility] Provider [facility] Start: 12-01-2021 Patient encounter procedure [facility] Prov ider [facility] Department Start: 11-23-2021 End: 11-28-2021 [...] Start: 11-14-2021 End: 11-15-2021 [facility] Start: 10-24-2021 End: 11-15-2021 ambulatory SHAIKH Kate MURRAY Facility:[facility] Start: 10-22-2021 End: 10-23-2021 ambulatory ASHLEY Cortes [facility] Facility:[facility]1 Start: 10-06-2021 ambulatory Van cortes SEWING MACHINE [employer] WINDER.REAL ESTATE DIRECTOR Work Phone: [facility] Start: 09-30-2021 Refill Asia Pike MD Work Phone: [facility] Comment on above: Refill Request Start: 09-19-2021 End: 09-24-2021 Evaluation and management of inpatient DR PROSPER LEES Facility:[facility]1 Start: 09-18-2021 End: 09-19-[address] DEVON MOREIRA Facility:[facility] Start: 07-11-2021 Refill Asia Pike MD Work Phone: [facility] Comment on above: Refill Request Start: 06-05-2021 Telephone encounter Van Olivarez SEWING MACHINE [employer] WINDER.REAL ESTATE DIRECTOR Work Phone: [facility] Comment on above: Results Start: 02-05-2021 End: 02-13-2021 ambulatory UNKNOWN PROVIDER Facility:[facility] Procedures Date Procedure Procedure Detail Performing Clinician Start: 05-19-2023 Follow-up visit Follow-up CAITY IBRAHIM Start: 03-18-2023 Hemoglobin glycosyla rk a1c Ni Cabrera DO Work Phone: Start: 02-05-2022 Creatinine other source Asia Pike MD Work Phone: Start: 02-05-2022 Urnls dip stick/tabl et rgnt auto w/o microscopy Asia Pike MD Work Phone: Start: 01-12-2022 Prothrombin time Alissa Chavira SEWING MACHINE [employer] W[employer]ER.REAL ESTATE DIRECTOR Work Phone: Start: 12-01-2021 PACEMAKER CLINIC CHECK [facility] Provider Start: 11-29-2021 Microscopic examinat ion of blood, culture DR PROSPER LEES Comment on above: Performed By: #### B [id number] ####[facility] [address] [place] [address]Dr. Farhat Leal Start: 11-27-2021 Insertion of Infusio [...] renal transplant KIDNEY TRANSPLANT STATUS Van Olivarez SEWING MACHINE [employer] WINDER.REAL ESTATE DIRECTOR Work Phone: History of renal transplant Kidney replaced by transplant Arturadrian Chen SEWING MACHINE [employer]BIN WINDER.REAL ESTATE DIRECTOR Work Phone: History of renal transplant Kidney replaced by transplant [facility] Work Phone: History of renal transplant Devon Moreira Other History of renal transplant Kidney replaced by transplant Asia Pike MD Work Phone: History of renal transplant Devon Moreira Other Plan of Treatment Date Care Activity Detail Author Start: 06-17-2023 End: 06-17-2023 Patient encounter procedure 06/17/2023 2:15 PM EDT Office Visit [facility] [address] [place] [address] Ni Cabrera DO [address] [place] [address] [facility] [address] Start: 06-16-2023 Hemoglobin A1c measurement Diabetes: Hemoglobin A1C [facility] Start: 02-26-2023 BP CONTROLLED (<130/80) BP CONTROLLE D (<130/80) [facility] Start: 02-05-2023 BP CONTROLLED (<130/80) BP CONTROLLE D (<130/80) [facility] Start: 01-12-2023 BP CONTROLLED (<130/80) BP CONTROLLE D (<130/80) [facility] Start: 11-17-2022 BP CONTROLLED (<130/80) BP CONTROLLE D (<130/80) [facility] Start: 10-16-2022 Influenza vaccination [facility] Start: 05-15-2022 Medicare Annual Wellness (AWV) Medicare Annual Wellness (AWV) [facility] Start: 04-08-2022 BP CONTROLLED (<130/80) BP CONTROLLE D (<130/80) [facility] Start: 02-15-2022 ADVANCE DIRECTIVE DISCUSSION ADVANCE DIRECTIVE DISCUSSION [facility] Start: 02-15-2022 DEPRESSION ASSESSMENT DEPRESSION ASS ESSMENT [facility] Start: 02-05-2022 COVID-19 VACCINE (5 - Yung risk series) COVID-19 VACCINE (5 - Yung risk series) [facility] Start: 11-27-2021 COVID-19 VACCINE (4 - Booster for Yung series) COVID-19 VACCINE (4 - Booster for Yung series) [facility] Start: 11-04-2021 Hemoglobin A1c/Hemoglobin.total in Blood HBA1C [facility] Start: 10-16-2021 Influenza vaccination C [facility] Start: 03-26-2021 COVID-19 VACCINE (3 - Yung risk 3-dose series) COVID-19 VACCINE (3 - Yung risk 3-dose series) [facility] Start: 03-26-2021 COVID-19 VACCINE (3 - Yung risk series) COVID-19 VACCINE (3 - Yung risk series) [facility] Start: 02-15-2021 ADVANCE DIRECTIVE DISCUSSION ADVANCE DIRECTIVE DISCUSSION [facility] Start: 02-15-2021 DEPRESSION ASSESSMENT DEPRESSION ASS ESSMENT [facility] Start: 01-05-2016 Hepatitis B screening URINE AL BUMIN:CREATININE RATIO [facility] Start: 07-31-2015 Pneumococcal Vaccine : 65+ Years (3 - PCV) Pneumococcal Vaccine: 65+ Years (3 - PCV) [facility] Start: 04-06-2015 Hemoglobin A1c/Hemoglobin.total in Blood HBA1C [facility] Start: 11-22-2010 Hepatitis B surface antibody level LDL CHOLESTEROL [facility] Start: 2009 ADULT PREVNAR-13 ADULT PREVNAR-13 Cl [facility] Start: 2009 PNEUMOVAX AGE 65 AND OVER WITH 5YR LOOKBACK (#1) PNEUMOVAX AGE 65 AND OVER WITH 5YR LOOKBACK (#1) [facility] Start: 1994 SHINGRIX VACCINE (1 of 2) SHINGRIX VACCINE (1 of 2) [facility] Start: 10-18-1963 HEPATITIS A (1 of 2 - Risk 2-dose series) HEPATITIS A (1 of 2 - Risk 2-dose series) [facility] Start: 10-18-1963 Hepatitis A Vaccine (1 of 2 - Risk 2-dose series) Hepatitis A Vaccine (1 of 2 - Risk 2-dose series) [facility] Start: 10-18-1963 SHINGRIX VACCINE (1 of 2) SHINGRIX VACCINE (1 of 2) [facility] Start: 10-18-1963 Urine microalbumin profile [facility] Start: 1962 ANNUAL PCP TEAM UNCRATER MATTHEW DISEASE VISIT ANNUAL PCP TEAM CHRONIC DISEASE VISIT [facility] Start: 1956 Adult depression screening assessment DEPRESSION SCREENING [facility] Start: 1954 3 comp foot exam completed DIABETIC FOOT EXAM [facility] Start: 1954 Glaucoma screening Diabetes: R etinopathy Screening [facility] Start: 1954 Hepatitis C antibody , confirmatory test DILATED RETINAL EXAM [facility] Start: 1950 Pneumococcal Vaccine : 65+ (1 - PCV) Pneumococcal Vaccine: 65+ (1 - PCV) [facility] Start: 1950 PNEUMOCOCCAL: 65+ (1 - PCV) PNEUMOCOCCAL: 65+ (1 - PCV) [facility] Start: 1945 HEPATITIS A (1 of 2 - Risk 2-dose series) HEPATITIS A (1 of 2 - Risk 2-dose series) [facility] URINALYSIS, REFLEX MICROSCOPIC URINALYSIS, REFLEX MICROSCOPIC Lab Routine Screening for genitourinary condition Ordered: 10/06/2021 [facility] Work Phone: Comment on above: Ordered: 10/06/2021 URINALYSIS, REFLEX MICROSCOPIC URINALYSIS, REFLEX MICROSCOPIC Lab Routine Screening for genitourinary condition Ordered: 04/02/2022 [facility] Work Phone: Comment on above: Ordered: 04/02/2022 End: 11-17-2022 US LEG ARTERIAL PERIPH UNL VAS LAB US LEG ARTERIAL PERIPH UNL VAS LAB Vascular Lab Routine PAD (peripheral artery disease) (HCC) Nonhealing ulcer of heel (HCC) 1 Occurrences starting 11/17/2021 until 11/17/2022 [facility] Work Phone: Comment on above: 1 Occurrences starti ng 11/17/2021 until 11/17/2022 End: 11-17-2022 US LEG VEIN DVT UNL VAS LAB US LEG VEIN DVT UNL VAS LAB Vascular Lab Routine Acute deep vein thrombosis (DVT) of proximal end of right lower extremity (HCC) 1 Occurrences starting 11/17/2021 until 11/17/2022 [facility] Work Phone: Comment on above: 1 Occurrences starti ng 11/17/2021 until 11/17/2022 [facility] MC BROTHERS CT & VAS MC BR[facility]ERS CT & VAS [facility] Immunizations Immunization Date Immunization Notes Care Provider Fa gaston 12-11-2021 COVID-19 booster vaccine, age 12+ yr, bivalent (PFIZER-BIONTLocu) Paresh Fonseca MD Work Phone: [facility] 12-11-2021 influenza, high-dose , quadrivalent vaccine (FLUZONE HIGH DOSE QUADRIVALENT) Paresh Fonseca MD Work Phone: [facility] 12-11-2021 influenza virus vaccine, unspecified formulation [facility] 10-24-2021 influenza, high dose seasonal, [...] influenza virus vaccine, unspecified formulation Van Olivarez APRN.REAL ESTATE DIRECTOR Work Phone: [facility] 12-17-2007 influenza virus vaccine, unspecified formulation Van Olivarez SEWING MACHINE BOBBIN WINDER.[facility] Work Phone: [facility] Work Phone: 02-11-2006 influenza virus vaccine, unspecified formulation Van Olivarez SEWING MACHINE BOBBIN WINDER.[facility] Work Phone: [facility] Work Phone: 12-07-2003 influenza virus vaccine, unspecified formulation Van Olivarez SEWING MACHINE BOBBIN WINDER.[facility] Work Phone: [facility] Work Phone: 12-07-2003 pneumococcal polysaccharide vaccine, 23 valent Van Olivarez SEWING MACHINE BOBBIN WINDER.[facility] Work Phone: [facility] Work Phone: NEGATED: Highlighted row has not occurred!12-10-2021 COVID-19 booster vaccine, age 12+ yr, bivalent (PFIZER-BIONTLocu) Paresh Fonseca MD Work Phone: [facility] NEGATED: Highlighted row has not occurred!12-10-2021 influenza, high-dose, quadrivalent vaccine (FLUZONE HIGH DOSE QUADRIVALENT) Paresh Fonseca MD Work Phone: [facility] Payers Date Payer Category Payer Medicare MEDICARE MEDICAR E A AND B [id number] 2009-Present [phone] [address] [address] [place] [address] Medicare [id number] 2009 Medicare [id number] 1.13.159.2.7.3 .[id number] 2009 Unknown [employer] [place] MEDICARE SUPPLEMENT [id number] 2009-Present [phone] [address] [place] [address] Indemnity [id number] 1.2.840.054312.1.13.159.2.7.3 .531745.315 2009 Unknown 1.2.840.543546. 1.13.159.2.7.3 .927419.315 2009 Unknown [id number] 2.16.8 40.1.793265.19 2009 Unknown [id number] 1959 Medicare [id number] 1959 Self-pay 1944 Unknown [id number] 2.16.840.1.471585.3.579.2.732 1944 Unknown [id number] 2.16.840.1.125493.3.579.2.593 1944 Unknown [id number] 2.16.840.1.790194.3.579.2.593 1944 Unknown [id number] 2.16.840.1.726390.3.579.2.593 1944 Unknown [id number] 2.16.840.1.216602.3.579.2.593 1944 Unknown [id number] 2.16.840.1.815315.3.579.2.593 1944 Unknown [id number] 2.16.840.1.915487.3.579.2.593 1944 Unknown [id number] 2.16.840.1.422099.3.579.2.593 1944 Unknown [id number] 2.16.840.1.206470.3.579.2.593 1944 Unknown [id number] 2.16.840.1.078547.3.579.2.593 1944 Unknown [id number] 2.16.840.1.415054.3.579.2.593 1944 Unknown [id number] 2.16.840.1.067142.3.579.2.593 1944 Unknown [id number] 2.16.840.1.259058.3.579.2.593 1944 Unknown [id number] 2.16.840.1.171071.3.579.2.593 1944 Unknown [id number] 2.16.840.1.771724.3.579.2.593 1944 Unknown [id number] 2.16.840.1.408574.3.579.2.593 1944 Unknown [id number] 2.16.840.1.419358.3.579.2.593 1944 Unknown [id number] 2.16.840.1.085226.3.579.2.593 1944 Unknown [id number] 2.16.840.1.957243.3.579.2.593 1944 Unknown [id number] 2.16.840.1.557727.3.579.2.593 1944 Unknown [id number] 2.16.840.1.307522.3.579.2.593 1944 Unknown [id number] 2.16.840.1.581243.3.579.2.593 1944 Unknown [id number] 2.16.840.1.926025.3.579.2.593 1944 Unknown [id number] 2.16.840.1.483125.3.579.2.593 1944 Unknown [id number] 2.16.840.1.569929.3.579.2.593 1944 Unknown [id number] 2.16.840.1.550165.3.579.2.593 1944 Unknown [id number] 2.16.840.1.325983.3.579.2.593 1944 Unknown [id number] 2.16.840.1.419925.3.579.2.593 1944 Unknown [id number] 2.16.840.1.155827.3.579.2.593 1944 Unknown [id number] 2.16.840.1.177986.3.579.2.593 1944 Unknown [id number] 2.16.840.1.431649.3.579.2.593 1944 Unknown [id number] 2.16.840.1.768677.3.579.2.593 1944 Unknown [id number] 2.16.840.1.761669.3.579.2.593 1944 Unknown [id number] 2.16.840.1.232579.3.579.2.593 1944 Unknown [id number] 2.16.840.1.801343.3.579.2.593 1944 Unknown [id number] 2.16.840.1.196776.3.579.2.593 1944 Unknown [id number] 2.16.840.1.530118.3.579.2.593 1944 Unknown [id number] 2.16.840.1.518263.3.579.2.593 1944 Unknown [id number] 2.16.840.1.266919.3.579.2.593 1944 Unknown [id number] 2.16.840.1.718046.3.579.2.593 1944 Unknown [id number] 2.16.840.1.654995.3.579.2.593 1944 Unknown [id number] 2.16.840.1.584660.3.579.2.593 1944 Unknown [id number] 2.16.840.1.001417.3.579.2.593 1944 Unknown [id number] 2.16.840.1.352589.3.579.2.593 1944 Unknown [id number] 2.16.840.1.100409.3.579.2.593 1944 Unknown [id number] 2.16.840.1.434229.3.579.2.593 1944 Unknown [id number] 2.16.840.1.018240.3.579.2.593 1944 Unknown [id number] 2.16.840.1.451171.3.579.2.125 9 Medicare Medicare Outpatient [id number] 2T [id number] Unknown [id number] 2.16.840.1.395650.3.579.2.593 Unknown [id number] 2.16.840.1.364463.3.579.2.593 Unknown [id number] 2.16.840.1.296102.3.579.2.531 Social History Date Type Detail Facility Start: 03-09-2011 End: 07-07-2022 Tobacco smoking status NHIS Ex-smoker [facility] Work Phone: End: 02-15-1975 History of tobacco use Current smoker [facility] Work Phone: End: 02-15-1975 History of tobacco use Cigarette Smoker [facility] Work Phone: Start: 04-08-2021 End: 02-26-2022 Alcohol intake Current drinker of alcohol (finding) [facility] Start: 1945 Sex Assigned At Not on file [facility] Start: 03-09-2011 End: 10-20-2022 Cigarettes smoked current (pack per day) - Reported 1 [facility] Work Phone: Start: 03-09-2011 End: 02-26-2022 Tobacco use and exposure Smokeless tobacco non-user [facility] Start: 09-25-2021 History SDOH Financial 5 [facility] Start: 09-25-2021 History SDOH Food Worry 1 [facility] Start: 09-25-2021 History SDOH Transpo rt Med 2 [facility] Start: 09-14-2021 End: 01-12-2022 Exposure to SARS-CoV-2 (event) Not sure [facility] Start: 02-26-2022 End: 10-20-2022 Sex Assigned At [facility] Work Phone: Start: 1945 Sex Assigned At Male F [facility] How hard is it for y ou to pay for the very basics like food, housing, medical care, and heating Not hard at all [facility] Work Phone: (I/We) worried shiloh er (my/our) food would run out before (I/we) got money to buy more. Never true [facility] Work Phone: In the past 12 month s, was there a time when you were not able to pay the mortgage or rent on time? No [facility] Work Phone: Start: 03-18-2023 Alcohol intake Ex-drinker (finding) [facility] How often to you hav e a drink containing alcohol? Never [facility] Medical Equipment Procedure Code Equipment Code Equipment Original Text Equipment Identifier Dates Tray Powerline S urecuff 5fr Polyurethane Catheter 1 Lumen Microintroducer - [id number] Start: 12-06-2021 Clinical Notes 06-05-2021 to 05-19-2023 Note Date & Type Note Facility 05-19-2023 Note [facility] Progress Note Reason for visit: follow [...] about 50-60 systolic. patient with friend/ seasonal driver from facility, we will take patient to the ER for evaluation ---- --------- Per dr. Alvarez 03/2021 Mr. Almonte, [place] , presents to clinic for routine follow [...] of the right coronary artery with robust hgvf-on-qknwq collaterals. 5. Normal global left ventricular systolic [...] Follow up with Dr. Galvez in the [facility] in the next 2 weeks; he may follow up with Dr. Orosco as needed for interventional issues. 5. Follow up wi (more content not included)... [facility] 04-11-2023 Evaluation note Encounter Date Diagnosis Assessment [...] (ICD-10 - Z89.619) WC dependent. 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 He states he took insulin breakfast and lunch was served early.They gave him his insulin for lunch but he was not very hungry and didn't eat much States bg levels are fluctuating Diet: 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 documented in this encounterReynolds County General Memorial [id number] Evaluation note* Encounter Date Diagnosis Assessment Notes [...] are maintaining regular scheduled appts with their technology sales representative. No bleeding complications Dec, Hyperlipidemia LDL goal [...] fluid balance and to avoid dehydration. Dec, medical terminologist (current) use of insulin (ICD-10 - Z79.4) [facility] Other 10-26-2023 Evaluation note* Encounter Date Diagnosis Assessment Notes Treatment Notes Treatment Clinical Notes Nov, Longstanding persistent atrial fibrillation (ICD-10 - I48.11) This patient is in NSR or rate controlled. This patient is anticoagulated to prevent thromboembolic events. They are maintaining regular scheduled appts with their technology sales representative. No bleeding complications Nov, Hyperlipidemia LDL goal [...] Z94.0) Monthly labs to transplant clinic Nov, correction (current) use of insulin (ICD-10 - Z79.4) [facility] Other 09-28-2023 Evaluation note* Encounter Date Diagnosis [...] are maintaining regular scheduled appts with their technology sales representative. No bleeding complications Oct, Type 1 diabetes [...] - Z94.0) Continue routine surveillance labs. Oct, correction (current) use of insulin (ICD-10 - Z79.4) [facility] Other 09-01-2023 Miscellaneous Notes* Telephone Encounter - Mary Martinez - 10/16/2022 1:08 PM EDT Pharmacy comment: REQUEST FOR 90 DAYS PRESCRIPTION. DX Code Needed. 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 No bleeding complications Sep, Type 1 diabetes [...] risk for cerebrovascular and cardiovascular disease. Sep, correction (current) use of insulin (ICD-10 - Z79.4) Sep, Kidney transplant status (ICD-10 - Z94.0) f/u transplant clinic Continue surveillance labs [facility] Other 08-08-2023 Miscellaneous Notes* Telephone Encounter - Ariadna Mcdowell Tech - 09/22/2022 8:58 AM EDT Pharmacy requesting refills as follows: Requested Prescriptions Pending Prescriptions Disp Refills tacrolimus IR (PROGRAF) 1 mg capsule Sig: Take 1 capsule by mouth DAILY AT 6 PM. Please review and advise. Ariadna Mcdowell, documented in this encounterW[facility]07-27-2023 Evaluation note* Encounter Date Diagnosis Assessment Notes Treatment Notes Treatment Clinical Notes Aug, Longstanding persistent atrial fibrillation (ICD-10 - I48.11) This patient is in NSR or rate controlled. This patient is anticoagulated to prevent thromboembolic events. They are maintaining regular scheduled appts with their technology sales representative. No s/s bleeding Aug, Type 1 diabetes [...] risk for cerebrovascular and cardiovascular disease. Aug, correction (current) use of insulin (ICD-10 - Z79.4) Aug, Kidney transplant status (ICD-10 - Z94.0) Continue close surveillance w/ [employer] Other 07-26-2023 NoteUT Electrophysiology Consult Note Reason [...] about 50-60 systolic. patient with friend/ seasonal driver from facility, we will take patient to the ER for evaluation --------- Per dr. Alvarez 03/2021 Mr. Almonte, [place] , presents to clinic for routine follow [...] of the right coronary artery with robust jkwz-uk-zsoxx collaterals. 5. Normal global left ventricular systolic [...] Follow up with [facility]. Galvez in the [facility] in the next 2 weeks; he may follow up with Dr. Orosco as needed for interventional issues. 5. Follow up with Dr. Devon Moreira as scheduled. PMH: Past Medical History: Diagnosis Date Abnormal ECG Arrhythmia Atrial fibrillation (CMS/HCC) Chronic kidney disease Coronary artery disease Diabetes mellitus (CMS/HCC) (more content not included)...[facility]07-26-2023 NotePatient here for 1.5 year follow up and device check. Lightheaded in the office today, as BP is very low. He denies chest pain, SOB, palpitations, and bleeding on warfarin. Had routine labs last week. Review of Systems Musculoskeletal: Positive for arthritis, joint pain and myalgias. Neurological: Positive for light-headedness. All other systems reviewed and are negative.[facility] 08-06-2022 Evaluation note* Encounter Date Diagnosis Assessment [...] are maintaining regular scheduled appts with their technology sales representative. No bleeding complications Jul, Type 1 diabetes [...] Monthly labs, ongoing surveillance from transplant clinic [facility] Other 05-15-2023 Progress note Author Sadia Aguilar [facility] June 29, 2022 2:47pm Note Date/Time June 29, 2022 2:46p m [facility] [address] [place] [address] Wound Center Provider Note Signed Patient: Alex Almonte MR#: [id number] : 1945 Acct:[id number] Age/Sex: 76 / M Copies to: DO Sadia Whyte APRN~ HPI Date of Visit Date of Visit: Date of Service: 06/29/2022 Time of Service: 14:45 Narrative HPI: 12/30/21 Alex is a 76 year old male presenting to [facility] wound care for aninitial visit for eval and treatment of a sacral/coccyx area pressure ulcer. He resides at [facility]. There is an OFFICE SYSTEMS TECHNOLOGY INSTRUCTOR present for the visit. Medicalhoney gel will [...] his brief that was cleaned by this commercial insurance underwriter as well as another nursing staff [...] from initial visit here Mode of Arrival/ Fire Prevention Inspector: Facility vehicle Assistive Device Used Today: Wheelchair and Indra Lives with:: Care/Nursing Facility Appetite Description: Within Normal Limits Who helps w/ dressing change?: Nursing Facility Why Do You Need Help?: Can't Reach Ulcer, Limited mobility and Taxing effort to leave home Smoking Status: Former smoker [facility] Medical History (Updated 03/03/22 @ 14:41 by [...] Ulcer/Injury Staging: Unstageable Bed Appearance: Beefy Red, Red Lodge, Yellow and Rolled Edges Percent of Wound [...] <Electronically signed by DAVID Aguilar> 06/29/22 144 [facility] Work Phone: 1(534) 969-810605-11-2023 Evaluation note* Encounter Date Diagnosis Assessment Notes [...] are maintaining regular scheduled appts with their technology sales representative. No bleeding complications June, Hyperlipidemia LDL goal <100 (ICD-10 - E78.5) Instructed on diet and exercise with continued statin therapy.Discussed the beneficial effects of lowering cholesterol in reducing the risk for cerebrovascular and cardiovascular disease. June, correction (current) use of insulin (ICD-10 - Z79.4) June, Kidney transplant status (ICD-10 - Z94.0) No s/s rejection [facility] Other 04-24-2023 Progress note Author Sadia Aguilar [facility] June 08, 2022 2:10pm Note Date/Time June 08, 2022 2:1 0pm [facility] [address] [place] [address] Wound Center Provider Note Signed Patient: Alex Almonte MR#: [id number] : 1945 Acct:[id number] Age/Sex: 76 / M Copies to: DO Sadia Whyte, SEWING MACHINE BOBBIN WINDER~ HPI Date of Visit Date of Visit: Date of Service: 06/08/2022 Time of Service: 14:07 Narrative HPI: 12/30/21 Alex is a 76 year old male presenting to [facility] wound care for aninitial visit for eval and treatment of a sacral/coccyx area pressure ulcer. He resides at [facility]. There is an OFFICE SYSTEMS TECHNOLOGY INSTRUCTOR present for the visit. Medicalhoney gel will [...] his brief that was cleaned by this commercial insurance underwriter as well as another nursing staff [...] from initial visit here Mode of Arrival/ Fire Prevention Inspector: Facility vehicle Assistive Device Used Today: Wheelchair and Indra Lives with:: Care/Nursing Facility Appetite Description: Within Normal Limits Who helps w/ dressing change?: Nursing Facility Why Do You Need Help?: Can't Reach Ulcer, Limited mobility and Taxing effort to leave home Smoking Status: Former smoker [facility] Medical History (Updated 03/03/22 @ 14:41 by [...] Ulcer/Injury Staging: Unstageable Bed Appearance: Beefy Red, Red Lodge, Yellow and Rolled Edges Percent of Wound [...] 06/08/22 14[address] [facility] Work Phone: 1(204) 614-314004-21-2023 Evaluation note* Encounter Date Diagnosis Assessment Notes [...] are maintaining regular scheduled appts with their technology sales representative. May, correction (current) use of insulin (ICD-10 - Z79.4) May, Kidney transplant status (ICD-10 - Z94.0) routine labs per clinic. 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 No open ulcerations present Pain controlled [facility] Other 03-27-2023 Progress note Author Sadia Aguilar [facility] May 11, 2022 1:41pm Note Date/Time May 11, 2022 1:4 0pm [facility] [address] [place] [address] Wound Center Provider Note Signed Patient: Alex Almonte MR#: [id number] : 1945 Acct:[id number] Age/Sex: 76 / M Copies to: DO Sadia Whyte, SEWING MACHINE BOBBIN WINDER~ HPI Date of Visit Date of Visit: Date of Service: 05/11/2022 Time of Service: 13:38 Narrative HPI: 12/30/21 Alex is a 76 year old male presenting to [facility] wound care for aninitial visit for eval and treatment of a sacral/coccyx area pressure ulcer. He resides at [facility]. There is an OFFICE SYSTEMS TECHNOLOGY INSTRUCTOR present for the visit. Medicalhoney gel will [...] his brief that was cleaned by this commercial insurance underwriter as well as another nursing staff [...] from initial visit here Mode of Arrival/ Fire Prevention Inspector: Facility vehicle Assistive Device Used Today: Wheelchair and Indra Lives with:: Care/Nursing Facility Appetite Description: Within Normal Limits Who helps w/ dressing change?: Nursing Facility Why Do You Need Help?: Can't Reach Ulcer, Limited mobility and Taxing effort to leave home Smoking Status: Former smoker [facility], [facility] Medical History (Updated 03/03/22 @ 14:41 by [...] Ulcer/Injury Staging: Unstageable Bed Appearance: Beefy Red, Red Lodge and Yellow Percent of Wound Bed Granulated/Red: [...] 05/11/22 134[address] [facility] Work Phone: 1(114) 415-147703-23-2023 Evaluation note* Encounter Date Diagnosis Assessment Notes [...] are maintaining regular scheduled appts with their technology sales representative. Apr, Type 1 diabetes mellitus with hyperglycemia [...] are reviewed at the office visit Apr, medical terminologist (current) use of insulin (ICD-10 - Z79.4) Apr, Kidney transplant status (ICD-10 - Z94.0) Serial labs by tatiana Schneider [place] [employer] Other 03-10-2023 NoteHNO ID: [id number] Author: Keyur Brown MD Service: ? Author Type: Physician Type: Progress Notes Filed: 04/24/2022 10:32 AM Note Text: Encounter opened in error, patient not seen.[facility]02-28-2023 Progress note Author Sadia Aguilar [facility] April 14, 2022 2:19pm Note Date/Time April 14, 2022 2:18pm [facility] [address] [place] [address] Wound Center Provider Note Signed Patient: Alex Almonte MR#: [id number] : 1945 Acct:[id number] Age/Sex: 76 / M Copies to: DO Sadia Whyte APRN~ HPI Date of Visit Date of Visit: Date of Service: 04/14/2022 Time of Service: 14:18 Narrative HPI: 12/30/21 Alex is a 76 year old male presenting to [facility] wound care for aninitial visit for eval and treatment of a sacral/coccyx area pressure ulcer. He resides at [facility]. There is an OFFICE SYSTEMS TECHNOLOGY INSTRUCTOR present for the visit. Medicalhoney gel will [...] his brief that was cleaned by this commercial insurance underwriter as well as another nursing staff [...] from initial visit here Mode of Arrival/ Fire Prevention Inspector: Facility vehicle Assistive Device Used Today: Wheelchair and Indra Lives with:: Care/Nursing Facility Appetite Description: Within Normal Limits Who helps w/ dressing change?: Nursing Facility Why Do You Need Help?: Can't Reach Ulcer, Limited mobility and Taxing effort to leave home Smoking Status: Former smoker [facility], [facility] Medical History (Updated 03/03/22 @ 14:41 by [...] Ulcer/Injury Staging: Unstageable Bed Appearance: Beefy Red, Red Lodge and Yellow Percent of Wound Bed Granulated/Red: [...] <Electronically signed by DAVID Aguilar> 04/14/22 1419 [facility] Work Phone: 1(447) 601-845202-16-2023 NotePatient Outreach (KIMBERLY) ALEX ALMONTE ([id number]) 1945 M TRN Date Time Provider Department 04/02/22 VAN OLIVAREZ During your visit today, we recorded the following information about you: Allergies As of Date: 04/02/2022 Noted Allergy Reaction PYRIDOSTIGMINE BROMIDE 08/04/2021 8 - GI Upset Date Reviewed: 02/26/2022 Reviewed by: Braden Abel MA - Fully Assessed Visit Diagnosis:Screening for genitourinary condition [Z13.89] Order(s):URINALYSIS, REFLEX MICROSCOPIC [PUK7783] Order #: [id number] Prescriptions as of 04/06/2022 - tacrolimus IR [...] by mouth daily with lunch. 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/2002 DIABETES UNCOMPL ADULT-UNCONTRLLED [IWV2132] 02/24/2002 KIDNEY TRANSPLANT STATUS [Z94.0] 09/07/2003 PROPHYLACTIC IMMUNOTHERAPY [Z29.8] 07/30/2006 MCC STEROIDS [BLB5256] 07/30/2006 VITAMIN D DEFICIENCY NOS [E55.9] 09/07/2008 [...] diabetes mellitus with diabetic peripher*11/29/2021 Atherosclerosis of marshall artery of extremity w*11/29/2021 Malnutrition of moderate degree (HCC) [E44.0] 12/01/2021 Dermatitis associated with moisture [L30.8] 12/04/2021 Encounter Status:Closed by CONCETTA HOBBS on 04/06/22[facility] 03-30-2022 Miscellaneous Notes* Telephone Encounter [...] to pharmacy. Katina Duque documented in this encounterWright-Patterson Medical Center02-07-2023 Progress note Author Sadia Aguilar [facility] March 24, 2022 3:00pm Note Date/Time March 24, 2022 2 :59pm [facility] [address] [place] [address] Wound Center Provider Note Signed Patient: Alex Almonte MR#: [id number] : 1945 Acct:[id number] Age/Sex: 76 / M Copies to: DO Sadia Whyte APRN~ HPI Date of Visit Date of Visit: Date of Service: 03/24/2022 Time of Service: 14:58 Narrative HPI: 12/30/21 Alex is a 76 year old male presenting to [facility] wound care for aninitial visit for eval and treatment of a sacral/coccyx area pressure ulcer. He resides at [facility]. There is an OFFICE SYSTEMS TECHNOLOGY INSTRUCTOR present for the visit. Medicalhoney gel will [...] his brief that was cleaned by this commercial insurance underwriter as well as another nursing staff [...] from initial visit here Mode of Arrival/ Fire Prevention Inspector: Facility vehicle Assistive Device Used Today: Wheelchair and Indra Lives with:: Care/Nursing Facility Appetite Description: Within Normal Limits Who helps w/ dressing change?: Nursing Facility Why Do You Need Help?: Can't Reach Ulcer, Limited mobility and Taxing effort to leave home Smoking Status: Former smoker FOR[facility]LY [facility], 1928–1983 Medical History (Updated 03/03/22 @ 14:41 by [...] Ulcer/Injury Staging: Unstageable Bed Appearance: Beefy Red, Red Lodge and Yellow Percent of Wound Bed Granulated/Red: [...] 03/24/22 1500 [facility] Work Phone: 1(876) 725-555801-17-2023 Progress note Author Sadia Aguilar [facility] March 03, 2022 2:41pm Note Date/Time March 03, 2022 2 :41pm [facility] [address] [place] [address] Wound Center Provider Note Signed Patient: Alex Almonte MR#: [id number] : 1945 Acct:[id number] Age/Sex: 76 / M Copies to: Devon Moreira,DO Sadia Aguilar APRN~ HPI Date of Visit Date of Visit: Date of Service: 03/03/2022 Time of Service: 14:38 Narrative HPI: 12/30/21 Alex is a 76 year old male presenting to [facility] wound care for aninitial visit for eval and treatment of a sacral/coccyx area pressure ulcer. He resides at [facility]. There is an OFFICE SYSTEMS TECHNOLOGY INSTRUCTOR present for the visit. Medicalhoney gel will [...] his brief that was cleaned by this commercial insurance underwriter as well as another nursing staff [...] from initial visit here Mode of Arrival/ Fire Prevention Inspector: Facility vehicle Assistive Device Used Today: Wheelchair and Nidra Lives with:: Care/Nursing Facility Appetite Description: Within Normal Limits Who helps w/ dressing change?: Nursing Facility Why Do You Need Help?: Can't Reach Ulcer, Limited mobility and Taxing effort to leave home Smoking Status: Former smoker FOR[facility]LY [facility], 1928–[facility] Medical History (Updated 03/03/22 @ 14:41 by [...] Ulcer Pressure Ulcer/Injury Staging: Unstageable Bed Appearance: [place] and Yellow Percent of Wound Bed Granulated/Red: 90 Percent of Devitalized: 10 Length (cm): 2.2 Width (cm): 1.8 Depth (cm): 1.9 CM Sq: 3.960 Surrounding Tissue Appearance: [place], Hyperpigmented and Satellite lesions Surrounding Tissue Temp: [...] 03/03/22 1441 [facility] Work Phone: 1(268) 477-484701-13-2023 Miscellaneous Notes* Telephone Encounter - RAUL Davidson - 02/27/2022 10:24 AM EST Patient phones requesting refills as follows: Per pts sister takes 1 mg in AM and 1 mg in PM Requested Prescriptions Pending Prescriptions Disp Refills tacrolimus IR (PROGRAF) 1 mg capsule Sig: Take 2 capsules by mouth DAILY (6 AM). Please review and advise. RAUL Davidson documented in this encounterWright-Patterson Medical Center01-12-2023 NoteHNO ID: [id number] Author: Hina Peterson MD Service: ? Author Type: Physician Type: Progress Notes Filed: 02/26/2022 4:31 PM Note Text: [facility] DEPARTMENT OF VASCULAR SURGERY OUTPATIENT VISIT DATE [...] his postop visit. He has been in jail since then and has been recovering from his acute on chronic congestive heart failure. His wound has largely been healing without any issues and the maxwell and sutures were removed at the nursing facility. He comes here with a lateral wound eschar. He denies any fevers, chills, or any drainage. He is on anticoagulation. 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 Patient on mycophenolate mofetil , cellcept and prednisone Mixed hyperlipidemia due to type 2 diabetes mellitus ([facility]) 11/29/2021 Osteomyelitis ([facility]) 11/29/2021 Paroxysmal atrial fibrillation ([facility]) Renal transplant, status post SA node dysfunction ([facility]) s/p pacemaker Type 2 diabetes mellitus with diabetic neuropathy, with long-term current use of insulin ([facility]LY [facility]) 02/24/2002 PAST SURGICAL HISTORY Procedure Laterality [...] by mouth daily with lunch. Magic Cup [place] with lunch aspirin, enteric coated (ASPIRIN, ENTERIC COATED) 81 mg EC tablet Take 1 tablet by mouth once daily. predniSONE (DELTASONE) 5 mg tablet TAKE 1 TABLET BY MOUTH EVERY DAY oxyCODONE IR (ROXICODONE) 5 mg immediate release tablet 1-2 tablets by ORAL/FEEDING TUBE route every 3 hours as needed. Food Supplement, Lactose-Free (ENSURE MAX (more content not included)... [facility] History of Present illness Narrative* Hina Peterson MD - 02/26/2022 4:25 PM EST Images from the original note were not included. [facility] DEPARTMENT OF VASCULAR SURGERY OUTPATIENT VISIT DATE [...] his postop visit. He has been in jail since then and has been recovering from his acute on chronic congestive heart failure. His wound has largely been healing without any issues and the maxwell and sutures were removed at the [facility] facility. He comes here with a lateral wound eschar. He denies any fevers, chills, or any drainage. He is on anticoagulation. 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 Magic Cup [place] with lunch aspirin, enteric coated (ASPIRIN, ENTERIC [...] 2022 TIME: 4:26 PM documented in this encounterWright-Patterson Medical Center01-05-2023 Miscellaneous Notes* Telephone Encounter - [...] Home and cell number(Ask for Alex's nurse) [phone] Diagnosis 4 mo f/u wound check Yumiko Mcclain documented in this encounterWright-Patterson Medical Center01-05-2023 Miscellaneous Notes* Telephone Encounter - [...] level. Augusta Medrano RN documented in this encounterWright-Patterson Medical Center01-04-2023 Miscellaneous Notes* Telephone Encounter - [...] advise. Mercedez Tavares MA documented in this encounterWright-Patterson Medical Center12-27-2022 Progress note Author Sadia Aguilar [facility] February 10, 2022 3:47pm Note Date/Time February 10, 2022 3:47pm [facility] [address] [place] [address] Wound Center Provider Note Signed Patient: Alex Almonte MR#: [id number] : 1945 Acct:[id number] Age/Sex: 76 / M Copies to: DO Sadia Whyte APRN~ HPI Date of Visit Date of Visit: Date of Service: 02/10/2022 Time of Service: 15:44 Narrative HPI: 12/30/21 Alex is a 76 year old male presenting to [facility] wound care for aninitial visit for eval and treatment of a sacral/coccyx area pressure ulcer. He resides at [facility]. There is an OFFICE SYSTEMS TECHNOLOGY INSTRUCTOR present for the visit. Medicalhoney gel will [...] his brief that was cleaned by this commercial insurance underwriter as well as another nursing staff member, few weeks to follow up Subjective Pain Coccyx: Pain Description: Intermittent Pain Intensity: 0 Wound/Ulcer History When did wound start?: 4 weeks ago- from initial visit here Mode of Arrival/ Fire Prevention Inspector: Facility vehicle Assistive Device Used Today: Wheelchair and Indra Lives with:: Care/Nursing Facility Appetite Description: Within Normal Limits Who helps w/ dressing change?: Nursing Facility Why Do You Need Help?: Can't Reach Ulcer, Limited mobility and Taxing effort to leave home Smoking Status: Former smoker [facility], 1928–1983 Medical History (Updated 01/20/22 @ 14:21 by [...] Ulcer Pressure Ulcer/Injury Staging: Unstageable Bed Appearance: Red [place] and Yellow Percent of Wound Bed Granulated/Red: 90 Percent of Devitalized: 10 Length (cm): 2.5 Width (cm): 2.3 Depth (cm): 2.1 CM Sq: 5.750 Surrounding Tissue Appearance: [place], Hyperpigmented and Satellite lesions Surrounding Tissue Temp: [...] <Electronically signed by DAVID Aguilar> 02/10/22 1547 [facility] Work Phone: 1(523) 858-395712-22-2022 NoteHNO ID: [id number] Author: Asia Pike MD Service: ? Author Type: Physician Type: Progress Notes Filed: 02/05/2022 9:38 AM Note Text: [facility] Follow up Portions of this note [...] and snacks patient declined. Indra scale at [facility]: 166.2 lbs per patient. Bed sore on coccyx causing discomfort. Being changed regularly at SNF- reported to be smaller around but still as deep. Patient not very up to date with medications. Patient brought paperwork from [facility] with all medications being received. Patient unsure if they have been drawing labs regularly. Last Tac from 01/19: 12.9 and K 5.9. In need of current labs. Lab orders will be sent with patient and follows as below: [facility] Standing [facility] [address] [facility] [address] [place], [place] [address] February 05, 2022 Alex Almonte 1945 [id number] STANDARD TESTING: Diagnosis Codes: Z94.0 Kidney Transplant [...] AT YOUR LABORATORY FACILITY AND FAX TO [phone]. PLEASE CALL [phone]. Provider: Dr. Pike Current Outpatient Medications Medication [...] by mouth daily with lunch. Magic Cup [place] with lunch aspirin, enteric coated (ASPIRIN, ENTERIC COATED) 81 mg EC tablet Take 1 tablet by mouth once daily. atorvastatin (LIPITOR) 40 mg tablet 1 tablet by ORAL/FEEDING TUBE route daily at bedtime. (more content not included)...[facility] History of Present illness Narrative* Asia Pike MD - 02/05/2022 8:20 AM EST Images from the original note were not included. [facility] Follow up Portions of this note [...] and snacks patient declined. Indra scale at [facility]: 166.2 lbs per patient. Bed sore on coccyx causing discomfort. Being changed regularly at [facility]- reported to be smaller around but still as deep. Patient not very up to date with medications. Patient brought paperwork from [facility] with all medications being received. Patient unsure if they have been drawing labs regularly. Last Tac from 01/19: 12.9 and K 5.9. In need of current labs. Lab orders will be sent with patient and follows as below: Kidney and Pancreas Transplant Standing Lab Orders [address] [place], [place] [address] February 05, 2022 Alex Almonte 1945 [id number] STANDARD TESTING: Diagnosis Codes: Z94.0 Kidney Transplant [...] AT YOUR LABORATORY FACILITY AND FAX TO [phone]. PLEASE CALL [phone]. Provider: Dr. Pike Current Outpatient Medications Medication [...] by mouth daily with lunch. Magic Cup [place] with lunch aspirin, enteric coated (ASPIRIN, ENTERIC [...] complexity. Asia Pike MD documented in this encounterWright-Patterson Medical Center12-06-2022 Progress note Author Sadia Aguilar [facility] January 20, 2022 2:21pm Note Date/Time January 20, 2022 2 :21pm [facility] [address] [place] [address] Wound Center Provider Note Signed Patient: Alex Almonte MR#: [id number] : 1945 Acct:[id number] Age/Sex: 76 / M Copies to: DO Sadia Whyte APRN~ HPI Date of Visit Date of Visit: Date of Service: 01/20/2022 Time of Service: 14:17 Narrative HPI: 12/30/21 Alex is a 76 year old male presenting to [facility] wound care for aninitial visit for eval and treatment of a sacral/coccyx area pressure ulcer. He resides at [facility]. There is an OFFICE SYSTEMS TECHNOLOGY INSTRUCTOR present for the visit. Medicalhoney gel will [...] from initial visit here Mode of Arrival/ Fire Prevention Inspector: Facility vehicle Assistive Device Used Today: Wheelchair and Indra Lives with:: Care/Nursing Facility Appetite Description: Within Normal Limits Who helps w/ dressing change?: Nursing Facility Why Do You Need Help?: Can't Reach Ulcer, Limited mobility and Taxing effort to leave home Smoking Status: Former smoker [facility], [facility] Medical History (Updated 01/20/22 @ 14:21 by [...] Ulcer Pressure Ulcer/Injury Staging: Unstageable Bed Appearance: [place] and Yellow Percent of Wound Bed Granulated/Red: 40 Percent of Devitalized: 60 Length (cm): 5.2 Width (cm): 3.4 Depth (cm): 1.8 CM Sq: 17.680 Surrounding Tissue Appearance: [place] and Hyperpigmented Surrounding Tissue Temp: Warm Drainage [...] by DAVID Aguilar> 01/20/22 1421 [facility] Work Phone: 1(754) 923-559312-06-2022 Miscellaneous Notes* Telephone Encounter - Van Olivarez APRN.CNP - 01/20/2022 1:12 PM EST Labs noted from yesterday. Pt is currently residing at [facility], I spoke with the Nurse, the results has been addressed by Physician caring for pt. He had been placed on Chlor Con and this has been discontinued and hyperkalemia has been treated. Van Olivarez APRN.CNP documented in this encounterWright-Patterson Medical Center11-28-2022 Surgical operation note* Brief Op Note - Misbah Landis PA-C - 01/12/2022 10:41 AM EST BRIEF OPERATIVE / PROCEDURE NOTE LOG ID: [id number] SURGERY/PROCEDURE DATE: 01/12/2022 INCISION/PROCEDURE START TIME: 10:32 AM INCISION CLOSE/PROCEDURE END TIME: 10:35 AM SURGEON(S)/PROCEDURALIST(S) AND SPINDLE PLUMBER(S): Misbah Landis PA-C SURGERY/PROCEDURE(S): Removal tunneled vascular access catheter under local anesthesia ANESTHESIA: Procedural Sedation FINDINGS: Catheter removed intact ESTIMATED BLOOD LOSS: 0 ml SPECIMENS: None COMPLICATIONS: None PRE-OP/PRE-PROCEDURE DIAGNOSIS: Foot Ulcer POST-OP/POST-PROCEDURE DIAGNOSIS: Same as Preop SIGNATURE: Misbah Landis PA-C PATIENT NAME: Alex Almonte DATE: January 12, 2022 TIME: 10:42 AM documented in this encounterWright-Patterson Medical Center11-22-2022 Nurse Note* Laxmi Archibald RN - 01/06/2022 1:55 PM EST Pre-procedure instructions: Contacted patient's sister, Munira Brothers and nurse at [facility] ([phone]) andconfirmed appt. for Gerhard removal scheduled on 01/12/22, at [facility]. If instructions are not followed your [...] signed. Arrival at 9:30am to desk B-1 ([facility]) and check in for your procedure. Catering Sous Chef/Transportation: How will you be arriving for your procedure? Ambulance service. To be arranged by [facility]. If you develop any of the following symptoms before your procedure, please call [phone]. Chills, joint pain, rash, sore throat, cough, loss of smell, reddened eyes, vomiting, abdominal pains, diarrhea, loss of taste, severe headache, weakness, bruising or bleeding, fever, muscle pain, shortness of breath Recovery expectations: You can expect to be in recovery for 30 minutes following the procedure. Written instructions provided to patient via [email or web address] If you have any questions please call [phone] documented in this encounterWright-Patterson Medical Center11-15-2022 Progress note Author Sadia Aguilar [facility] December 30, 2021 1:49pm Note Date/Time December 30, 2021 1:49pm [facility] [address] [place] [address] Wound Center Provider Note Signed Patient: Alex Almonte MR#: [id number] : 1945 Acct:[id number] Age/Sex: 76 / M Copies to: DO Sadia Whyte APRN~ HPI Date of Visit Date of Visit: Date of Service: 12/30/2021 Time of Service: 13:44 Narrative HPI: 12/30/21 Alex is a 76 year old male presenting to [facility] wound care for aninitial visit for eval and treatment of a sacral/coccyx area pressure ulcer. He resides at [facility]. There is an OFFICE SYSTEMS TECHNOLOGY INSTRUCTOR present for the visit. Medicalhoney gel will [...] start?: 4 weeks ago Mode of Arrival/ Fire Prevention Inspector: Facility vehicle Assistive Device Used Today: Wheelchair and Indra Lives with:: Care/Nursing Facility Appetite Description: Within Normal Limits Who helps w/ dressing change?: Nursing Facility Why Do You Need Help?: Can't Reach Ulcer, Limited mobility and Taxing effort to leave home Smoking Status: Former smoker [facility], [facility] Medical History (Updated 12/30/21 @ 13:49 by [...] 0.1 CM Sq: 38.500 Surrounding Tissue Appearance: [place] and Hyperpigmented Surrounding Tissue Temp: Warm Drainage [...] <Electronically signed by DAVID Aguilar> 12/30/21 1349 [facility] Work Phone: 1(515) 766-873211-15-2022 History of Present illness Narrative* Paresh Fonseca [...] the rehab facility He is currently at [facility] in [facility] Seen on video together with Zoe -history [...] has local wound care following this at [facility] WBC 6.0, creatinine -- 0.8. alt [...] by mouth daily with lunch. Magic Cup [place] with lunch aspirin, enteric coated (ASPIRIN, ENTERIC [...] is a 76 year old male from [facility]. 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 History of PAD CAD status post CABG, diabetes, atrial fibrillatioN He originally presented [facility] for having altered mental status [...] 3. Status post right heel I&D at [facility] on 11/24/2021. 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 4. CKD - s/p gerhard placement 5. immunocompromised Status post right open above the ankle risrddxmhy28/17 - Enterobacter and MRSA from cultures Gram-positive [...] will need to coordinate with his SNF [phone] --our ID office will need to arrange for IR gerhard removal. Return to ID as needed 10 Minutes spent via virtual visit. SIGNATURE: Paresh Fonseca MD PATIENT NAME: Alex Almonte DATE: December 30, 2021 TIME: 9:52 AM documented in this encounterWright-Patterson Medical Center11-01-2022 Miscellaneous Notes* Telephone Encounter - Sulma Pardo - 12/16/2021 3:13 PM EDT Pt activity therapy teacher is requesting orders for Stomp ampushield to be taken off pressure relief because it is causing sores on the thigh. Thanks, Sulma Pardo College Football Coach documented in this encounterWright-Patterson Medical Center10-31-2022 Miscellaneous Notes* Telephone Encounter - Gwen Alfredo Adm Asst I - 12/15/2021 4:11 PM EDT Rupa LYLES from [facility] [phone] called to report IV Vancomycin was started until today. Patient missed 3 days, should patient makeup missed doses? Please advise. Gwen Alfredo Adm Asst I documented in this encounterWright-Patterson Medical Center10-21-2022 Instructions* Patient Instructions* Paresh Fonseca [...] serious illness Are taking any medications (prescription, bjds-rgv-mfioqhp, vitamins, or herbal products) How will I receive EVUSHELD? EVUSHELD consists of two investigational medicines, tixagevimab and cilgavimab. You will receive 1 dose of EVUSHELD, consisting of 2 separate injections (tixagevimab and cilgavimab). EVUSHELD will be given to you by your healthcare provider as 2 intramuscular injections, given one after the other. Viruses can exchange architect time (mutate) and develop into a slightly [...] by certain SARS-CoV-2 variants: Viruses can exchange architect time (mutate) and develop into a slightly [...] treatment or prevention of COVID-19 go to https://www.fda.gov/qdicxnkav-xpsbnluivfwj-dte- response/vln-dqjoi-vkaeftzgds-pzf-yabeir-tsgagbiqn/bqrqbdjlp-hsq-fdqunvopxmvwp for more information. It is your choice [...] not go away. Report side effects to [employer] at www.fda.gov/medEntrepreneurship Center/Incubatortch or call 3-041-IZJ-1088 or call [employer]oc[employer] . Additional Information If you have questions, visit the website or call the telephone number provided below. Website Telephone number http://www.Rivono How can I learn more about COVID-19? Ask your healthcare provider. Visit https://www.cdc.gov/COVID19 Contact your local or state public health department. What is an Emergency Use Authorization? The [place] FDA has made EVUSHELD (tixagevimab co-packaged with cilgavimab) available under an emergency access mechanism called an Emergency Use Authorization EUA. The EUA is supported by a Direct Support Professional of Health and Human Service (HHS) declaration [...] monohydrate, polysorbate 80, sucrose, water. Distributed by: [employer] [place], [place] Manufactured for: [employer] [place] [employer] 2021. All rightsreserved. documented in this encounterWright-Patterson Medical Center10-21-2022 Miscellaneous Notes* Telephone Encounter - Paresh Fonseca MD - 12/05/2021 3:05 PM EDT Evusheld (tixagevimab/cilgavimab) Eligibility and Patient Discussion The patient agrees to receive Evusheld (tixagevimab 300 mg and cilgavimab 300 mg) at [place]. The patient verbalized understanding of repeating a COVID test 72 hours prior to the injections. called up patient in response to her [employer] message today she tested covid negative on a rapid test on Wednesday this week Discussed evushed fact sheet and she agrees to proceed she will retest again today to be scheduled for Friday 12/08 at [facility] Paresh Fonseca MD documented in this encounterW[facility]10-[facility] Instructions* Patient Instructions* No Reeder DO - 11/17/2021 4:26 PM EDT -- continue coumadin -- will get vascular ultrasound for vein and artery of your right leg -- will have you see my interventional cardiology partner regarding your peripheral artery disease and if your artery disease is impairing your wound healing for the leg ulcer documented in this encounterWright-Patterson [facility] Center10-03-2022 History of Present illness Narrative* No Reeder DO - 11/17/2021 3:53 PM EDT Images from the original note were not included. [facility] Department of Cardiovascular Medicine SECTION [...] DVT scan. Leg elevation. No Reeder DO, [facility] Vascular Medicine documented in this encounterWright-Patterson [facility] Center08-16-2022 History of Past illness Narrative* Problem Noted Date Resolved Date Altered tissue perfusion documented as of this encounter (statuses as of 09/30/2021) [address]16-2022 History of Past illness Narrative* Problem Noted Date Resolved Date Altered tissue perfusion documented as of this encounter (statuses as of 10/09/2021) [address]16-2022 History of Past illness Narrative* Problem Noted Date Resolved Date Altered tissue perfusion documented as of this encounter (statuses as of 11/18/2021) [address]16-2022 History of Past illness Narrative* Problem Noted Date Resolved Date Altered tissue perfusion documented as of this encounter (statuses as of 12/01/2021) [address]16-2022 History of Past illness Narrative* Problem Noted Date Resolved Date Altered tissue perfusion documented as of this encounter (statuses as of 12/05/2021) [address]16-2022 History of Past illness Narrative* Problem Noted Date Resolved Date Altered tissue perfusion documented as of this encounter (statuses as of 12/08/2021) [address]16-2022 History of Past illness Narrative* Problem Noted Date Resolved Date Altered tissue perfusion 08/16/2 022 documented as of this encounter (statuses as of 12/08/2021) [address]16-2022 History of Past illness Narrative* Problem Noted Date Resolved Date Altered tissue perfusion 2 022 documented as of this encounter (statuses as of 12/12/2021) [address]16-2022 History of Past illness Narrative* Problem Noted Date Resolved Date Altered tissue perfusion 2 022 documented as of this encounter (statuses as of 12/15/2021) [address]16-2022 History of Past illness Narrative* Problem Noted Date Resolved Date Altered tissue perfusion 2 022 documented as of this encounter (statuses as of 12/16/2021) [address]16-2022 History of Past illness Narrative* Problem Noted Date Resolved Date Altered tissue perfusion 2 022 documented as of this encounter (statuses as of 12/31/2021) [address]16-2022 History of Past illness Narrative* Problem Noted Date Resolved Date Altered tissue perfusion 2 022 documented as of this encounter (statuses as of 01/13/2022) [address]16-2022 History of Past illness Narrative* Problem Noted Date Resolved Date Altered tissue perfusion 09/30/2 022 documented as of this encounter (statuses as of 01/20/2022) [address]16-2022 History of Past illness Narrative* Problem Noted Date Resolved Date Altered tissue perfusion 2 022 documented as of this encounter (statuses as of 02/06/2022) [address]16-2022 History of Past illness Narrative* Problem Noted Date Resolved Date Altered tissue perfusion 16/2 022 documented as of this encounter (statuses as of 02/20/2022) [address]16-2022 History of Past illness Narrative* Problem Noted Date Resolved Date Altered tissue perfusion 16/2 022 documented as of this encounter (statuses as of 02/26/2022) [address]16-2022 History of Past illness Narrative* Problem Noted Date Resolved Date Altered tissue perfusion 16/2 022 documented as of this encounter (statuses as of 02/27/2022) [address]16-2022 History of Past illness Narrative* Problem Noted Date Resolved Date Altered tissue perfusion documented as of this encounter (statuses as of 03/21/2022) [address]16-2022 History of Past illness Narrative* Problem Noted Date Resolved Date Altered tissue perfusion documented as of this encounter (statuses as of 03/30/2022) [address]16-2022 History of Past illness Narrative* Problem Noted Date Resolved Date Altered tissue perfusion documented as of this encounter (statuses as of 04/06/2022) [address]16-2022 History of Past illness Narrative* Problem Noted Date Resolved Date Altered tissue perfusion documented as of this encounter (statuses as of 05/13/2022) [address]16-2022 History of Past illness Narrative* Problem Noted Date Diagnosed Date Resolved Date Altered tissue perfusion documented as of this encounter (statuses as of 2022) [address]16-2022 History of Past illness Narrative* Problem Noted Date Diagnosed Date Resolved Date Altered tissue perfusion documented as of this encounter (statuses as of 10/29/2022) [facility] Miscellaneous Notes* Telephone Encounter - [...] to pharmacy. Katina Duque documented in this encounterWright-Patterson Medical Center05-31-2022 Miscellaneous Notes* Telephone Encounter - [...] advise. Rosibel Link Adm documented in this encounterWright-Patterson Medical Center04-21-2022 Miscellaneous Notes* Telephone Encounter - Van Olivarez APRN.CNP - 06/05/2021 4:46 PM EDT Spoke with pt regarding latest results, scr. at baseline. TAC level 8.6 prev two levels in 5 range.He believes latest level would be 12hr trough. No changes for now, if next level >7, can consider if reduction appropriate. He understands. Van Olivarez APRN.CNP documented in [facility] encounterFisher[facility]* Diagnosis Screening for genitourinary condition Screening for other and unspecified genitourinary condition documented in this encounter [facility]* Diagnosis Acute deep vein thrombosis (DVT) of proximal end of right lower extremity (HCC)- Primary PAD (peripheral artery disease) ([facility]) Peripheral vascular disease, unspecified Nonhealing ulcer of heel ([facility]) Anticoagulation management encounter Encounter for therapeutic drug monitoring [facility]* Diagnosis Encounter for prophylactic measures, unspecified- Primary documented in this encounter [facility]* Diagnosis Kidney replaced by transplant- Primary documented in this encounter [facility]* Diagnosis MRSA bacteremia- Primary Bacteremia Diabetic foot ulcer with osteomyelitis ([facility]) Type II or unspecified type diabetes mellitus with other specified manifestations, not stated as uncontrolled ILIANA (acute kidney injury) ([facility]) Acute kidney failure, unspecified documented in this encounter [facility]* Diagnosis Kidney replaced by transplant- Primary 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 medical terminologist current use of immunosuppressive drug documented in this encounter [facility]* Diagnosis Hx of BKA, [...] (HCC) Atrial fibrillation documented in this encounter [facility]* Diagnosis Screening for genitourinary condition Screening for other and unspecified genitourinary condition documented in this encounter [facility]* Diagnosis Onset Date Resolution Status At high risk for skin breakdown chronic Diabetes chronic Fecal incontinence chronic Limited mobility chronic Poor appetite chronic Pressure ulcer of sacral region, unstageable chronic Candidiasis resolved [facility] Work Phone: Evaluation noteNo [facility] Other Evaluation note* Diagnosis Kidney replaced by transplant- Primary documented in this encounter [facility]* Diagnosis Type 1 diabetes [...] COLONOSCOPY 1995,2001, 2014 Hospitalization History see above [employer] Other Progress note Author Sadia Aguilar [facility] July 20, 2022 1:48pm Note Date/Time July 20, 2022 1:48p m [facility] [address] [place] [address] Wound Center Provider Note Signed Patient: Alex Almonte MR#: [id number] : 1945 Acct:[id number] Age/Sex: 76 / M Copies to: Devon Moreira,DO Sadia Aguilar, SEWING MACHINE BOBBIN WINDER~ HPI Date of Visit Date of Visit: Date of Service: 07/20/2022 Time of Service: 13:46 Narrative HPI: 12/30/21 Alex is a 76 year old male presenting to [facility] wound care for aninitial visit for eval and treatment of a sacral/coccyx area pressure ulcer. He resides at [facility]. There is an OFFICE SYSTEMS TECHNOLOGY INSTRUCTOR present for the visit. Medicalhoney gel will [...] his brief that was cleaned by this commercial insurance underwriter as well as another nursing staff [...] from initial visit here Mode of Arrival/ Fire Prevention Inspector: Facility vehicle Assistive Device Used Today: Wheelchair and Indra Lives with:: Care/Nursing Facility Appetite Description: Within Normal Limits Who helps w/ dressing change?: Nursing Facility Why Do You Need Help?: Can't Reach Ulcer, Limited mobility and Taxing effort to leave home Smoking Status: Former smoker [facility] Medical History (Updated 03/03/22 @ 14:41 by [...] 07/20/22 1348 [facility] Work Phone: Reason for referral (narrative)* Outpatient Procedure (Routine) - Authorized Specialty Diagnoses / Procedures Referred By Contac t Referred To Contact [facility] [place] Diagnoses PAD (peripheral artery disease) (HCC) Nonhealing ulcer of heel (HCC) Procedures US LEG ARTERIAL PERIPH UNL VAS LAB DUP-SCAN LXTR ART/ARTL BPGS UNI/LMTD STUDY No Reeder DO [address] [place] [address] [facility] [place] [address] Referral ID Status Reason Start Date Expiration Date Visits Requested Visits Authorized [id number] Authorized Auto-Generat ed Referral 11/17/2021 11/17/2022 1 1 * Outpatient Procedure (Routine) - Authorized Specialty Diagnoses / Procedures Referred By Contac t Referred To Contact [facility] [place] Diagnoses Acute deep vein thrombosis (DVT) of proximal end of right lower extremity (HCC) Procedures US LEG VEIN DVT UNL VAS LAB DUP-SCAN XTR VEINS UNILATERAL/LIMITED STUDY No Reeder DO [address] [address] [facility] [address] [place] [address] Referral ID Status Reason Start Date Expiration Date Visits Requested Visits Authorized [id number] Authorized Auto-Generat ed Referral 11/17/2021 11/17/2022 1 1 * Consult, Test, Treat (Routine) - Authorized Specialty Diagnoses / Procedures Referred By Contkendra t Referred To Contact Cardiology Diagnoses PAD (peripheral artery disease) (HCC) Nonhealing ulcer of heel (HCC) Procedures CONSULT TO CARDIOLOGY OFFICE/OUTPATIENT [facility] 60-74 MINUTES Savanah Marcelo MD [address] [place] [address] Referral ID Status Reason Start Date Expiration Date Visits Requested Visits Authorized [id number] Authorized PCP Requested Referral 11/17/2021 11/17/2022 1 1 [facility] Summary Purpose Family History No Family History Records Found Relationship Condition Age at Onset Recorded Date/T kartik father Aneurysm Unknown father Parkinson's disease Unknown Advance Directives No Advanced Directives Records FoundDocuments on File Type Date Recorded Patient Assistant Professor Of Mathematics Expl anation Advance Directive(s) Latest Code Status [...] Maker Relationship: M ajority of Adult Siblings (liability claims representative) DNR-CCA 09/26/2021 11:56 AM 10/01/2021 2:18 [...] Decision Maker Relationship: Majority of Adult Siblings (liability claims representative) Code Status History Code Status Date [...] Reason for Visit Chief Complaint Open Wound ([facility]) Reason for Visit At high [...] CREATED AUTHOR AUTHOR'S ORGANIZ ATION 07/25/2022 [facility] DATE CREATED AUTHOR AUTHOR'S ORGANIZ ATION 08/16/2022 [facility] DATE CREATED AUTHOR AUTHOR'S ORGANIZ ATION 01/14/2023 [facility] DATE CREATED AUTHOR AUTHOR'S ORGANIZ ATION 03/20/2023 [facility] DATE CREATED AUTHOR AUTHOR'S ORGANIZ ATION 05/25/2023 [facility] Source Comments (unrecognize d section and content) In the event this informatio n is protected by the Federal Confidentiality of Alcohol and Drug Abuse Patient Records regulations: The Federal rules restrict any use of the information to criminally investigate or prosecute any alcohol or drug abuse patient.[facility] CenterIn the event this information is protected by the Federal Confidentiality of Alcohol and Drug Abuse Patient Records regulations: The Federal rules restrict any use of the information to criminally investigate or prosecute any alcohol or drug abuse patient.[facility] CenterIn the event this information is protected by the Federal Confidentiality of Alcohol and Drug Abuse Patient Records regulations: The Federal rules restrict any use of the information to criminally investigate or prosecute any alcohol or drug abuse patient.[facility] CenterIn the event this information is protected by the Federal Confidentiality of Alcohol and Drug Abuse Patient Records regulations: The Federal rules restrict any use of the information to criminally investigate or prosecute any alcohol or drug abuse patient.[facility] CenterIn the event this information is protected by the Federal Confidentiality of Alcohol and Drug Abuse Patient Records regulations: The Federal rules restrict any use of the information to criminally investigate or prosecute any alcohol or drug abuse patient.[facility] CenterIn the event this information is protected by the Federal Confidentiality of Alcohol and Drug Abuse Patient Records regulations: The Federal rules restrict any use of the information to criminally investigate or prosecute any alcohol or drug abuse patient.[facility] CenterIn the event this information is protected by the Federal Confidentiality of Alcohol and Drug Abuse Patient Records regulations: The Federal rules restrict any use of the information to criminally investigate or prosecute any alcohol or drug abuse patient.[facility] CenterIn the event this information is protected by the Federal Confidentiality of Alcohol and Drug Abuse Patient Records regulations: The Federal rules restrict any use of the information to criminally investigate or prosecute any alcohol or drug abuse patient.[facility] CenterIn the event this information is protected by the Federal Confidentiality of Alcohol and Drug Abuse Patient Records regulations: The Federal rules restrict any use of the information to criminally investigate or prosecute any alcohol or drug abuse patient.[facility] CenterIn the event this information is protected by the Federal Confidentiality of Alcohol and Drug Abuse Patient Records regulations: The Federal rules restrict any use of the information to criminally investigate or prosecute any alcohol or drug abuse patient.[facility] CenterIn the event this information is protected by the Federal Confidentiality of Alcohol and Drug Abuse Patient Records regulations: The Federal rules restrict any use of the information to criminally investigate or prosecute any alcohol or drug abuse patient.[facility] CenterIn the event this information is protected by the Federal Confidentiality of Alcohol and Drug Abuse Patient Records regulations: The Federal rules restrict any use of the information to criminally investigate or prosecute any alcohol or drug abuse patient.[facility] CenterIn the event this information is protected by the Federal Confidentiality of Alcohol and Drug Abuse Patient Records regulations: The Federal rules restrict any use of the information to criminally investigate or prosecute any alcohol or drug abuse patient.[facility] CenterIn the event this information is protected by the Federal Confidentiality of Alcohol and Drug Abuse Patient Records regulations: The Federal rules restrict any use of the information to criminally investigate or prosecute any alcohol or drug abuse patient.[facility] CenterIn the event this information is protected by the Federal Confidentiality of Alcohol and Drug Abuse Patient Records regulations: The Federal rules restrict any use of the information to criminally investigate or prosecute any alcohol or drug abuse patient.[facility] CenterIn the event this information is protected by the Federal Confidentiality of Alcohol and Drug Abuse Patient Records regulations: The Federal rules restrict any use of the information to criminally investigate or prosecute any alcohol or drug abuse patient.[facility] CenterIn the event this information is protected by the Federal Confidentiality of Alcohol and Drug Abuse Patient Records regulations: The Federal rules restrict any use of the information to criminally investigate or prosecute any alcohol or drug abuse patient.[facility] CenterIn the event this information is protected by the Federal Confidentiality of Alcohol and Drug Abuse Patient Records regulations: The Federal rules restrict any use of the information to criminally investigate or prosecute any alcohol or drug abuse patient.[facility] CenterIn the event this information is protected by the Federal Confidentiality of Alcohol and Drug Abuse Patient Records regulations: The Federal rules restrict any use of the information to criminally investigate or prosecute any alcohol or drug abuse patient.[facility] CenterIn the event this information is protected by the Federal Confidentiality of Alcohol and Drug Abuse Patient Records regulations: The Federal rules restrict any use of the information to criminally investigate or prosecute any alcohol or drug abuse patient.[facility] CenterIn the event this information is protected by the Federal Confidentiality of Alcohol and Drug Abuse Patient Records regulations: The Federal rules restrict any use of the information to criminally investigate or prosecute any alcohol or drug abuse patient.[facility] CenterIn the event this information is protected by the Federal Confidentiality of Alcohol and Drug Abuse Patient Records regulations: The Federal rules restrict any use of the information to criminally investigate or prosecute any alcohol or drug abuse patient.[facility] CenterIn the event this information is protected by the Federal Confidentiality of Alcohol and Drug Abuse Patient Records regulations: The Federal rules restrict any use of the information to criminally investigate or prosecute any alcohol or drug abuse patient.[facility] CenterIn the event this information is protected by the Federal Confidentiality of Alcohol and Drug Abuse Patient Records regulations: The Federal rules restrict any use of the information to criminally investigate or prosecute any alcohol or drug abuse patient.[facility] CenterIn the event this information is protected by the Federal Confidentiality of Alcohol and Drug Abuse Patient Records regulations: The Federal rules restrict any use of the information to criminally investigate or prosecute any alcohol or drug abuse patient.[facility] CenterIn the event this information is protected by the Federal Confidentiality of Alcohol and Drug Abuse Patient Records regulations: The Federal rules restrict any use of the information to criminally investigate or prosecute any alcohol or drug abuse patient.[facility] Reason for Visit (unrecogniz ed [...] Care Teams (unrecognized sec tion and content) Bakery Chef Relationship Specialty Start Date End Date LillieDevon, DO [address] [place] [address] PCP - General 05/27/00 Bakery Chef Relationship Specialty Start Date End Date Devon Moreira, DO [address] [facility] [address] PCP - General 05/27/00 Bakery Chef Relationship Specialty Start Date End Date Devon Moreira, DO [address] [place] [address] PCP - General 05/27/00 Bakery Chef Relationship Specialty Start Date End Date Lillie Devon García, DO [address] [place] [address] PCP - General 05/27/00 Bakery Chef Relationship Specialty Start Date End Date Devon Moreira, DO [address] [place] [address] PCP - General 05/27/00 Bakery Chef Relationship Specialty Start Date End Date Devon Moreira, DO [address] [place] [address] PCP - General 05/27/00 Bakery Chef Relationship Specialty Start Date End Date Devon Moreira, DO [address] [place] [address] PCP - General 05/27/00 Bakery Chef Relationship Specialty Start Date End Date Devon Moreira, DO [address] [place] [address] PCP - General 05/27/00 Bakery Chef Relationship Specialty Start Date End Date Devon Moreira, DO [address] [place] [address] PCP - General 05/27/00 Bakery Chef Relationship Specialty Start Date End Date Devon Moreira, DO [address] [place] [address] PCP - General 05/27/00 Bakery Chef Relationship Specialty Start Date End Date Devon Moreira, DO [address] [place] [address] PCP - General 05/27/00 Bakery Chef Relationship Specialty Start Date End Date Devon Moreira, DO [address] [place] [address] PCP - General 05/27/00 Bakery Chef Relationship Specialty Start Date End Date Devon Moreira, DO [address] [place] [address] PCP - General 05/27/00 Bakery Chef Relationship Specialty Start Date End Date Devon Moreira, DO [address] [place] [address] PCP - General 05/27/00 Bakery Chef Relationship Specialty Start Date End Date Devon Moreira, DO [address] [place] [facility] [place] [address] PCP - General 05/27/00 Bakery Chef Relationship Specialty Start Date End Date Devon Moreira, DO [address] [place] [facility] [place] [address] PCP - General 05/27/00 Bakery Chef Relationship Specialty Start Date End Date Devon Moreira, DO [address] [place] [facility] [place] [address] PCP - General 05/27/00 Bakery Chef Relationship Specialty Start Date End Date LillieDevon, DO [address] [place] [facility] [place] [address] PCP - General 05/27/00 Bakery Chef Relationship Specialty Start Date End Date Lillie Devon Raquel, DO [address] [place] [facility] [place] [address] PCP - General 05/27/00 Team Status: Active Member Role Status Franklin Moreira DO Primary Care Provider Active Team Status: Inactive Member Role Status Franklin Moreira DO Primary Care Provider Active Sadia Aguilar APRN Attending Provider Active Bakery Chef Relationship Specialty Start Date End Date Devon Moreira DO [address] [place] [facility] [place] [address] PCP - General 05/27/00 Bakery Chef Relationship Specialty Start Date End Date Devon Moreira DO [address] [place] [facility] [place] [address] PCP - General 05/27/00 Bakery Chef Relationship Specialty Start Date End Date Ni Cabrera, DO [address] [place] [address] PCP - ACO Reach 07/09/22 Devon Moreira MD [address] [place] [id number] PCP - General Internal Medicine 07/14/22 PRN Active and Recently Administ ered Medications (unrecognized section and content) Medication Order 01/10/2022 01/11/2022 01/12/2022 lidocaine (PF) 10 mg/mL (1 %) injection (XYLOCAINE) SUBCUTANEOUS, X (OR/PROCEDURE) PRN, Starting on Wed01/12/22 at 1032, Until Wed01/13/22 at 0303, Intraprocedure 1032 (Given - Provid er: Vani Hdz APRN.REAL ESTATE DIRECTOR) Goals (unrecognized section and content) Goals may [...] BE BASED ON THE PRIMARY CLINICAL RECORDS. [employer] provides no warranty or guarantee of the accuracy or completeness of information in this document.
[2023-06-09 07:53] LABS: Basophils Percent Auto 0.4 % (0.2-2.0); Eosinophils Absolute Auto 0.3 10^3/uL (0.0-0.7); Eosinophils Percent Auto 4.8 % (0.9-7.0); Hematocrit 28.3 % (42.0-54.0); Immature Granulocytes Abs Auto 0.02 10^3/uL (0.00-0.03); Immature Granulocytes Pct Auto 0.3 % (0.0-0.5); Lymphocytes Absolute Auto 2.4 10^3/uL (1.2-3.8); Lymphocytes Percent Auto 36.4 % (20.5-60.0); Mean Corpuscular HGB Conc 31.8 g/dL (29.9-35.2); Mean Corpuscular Hemoglobin 26.1 pg (25.9-34.0); Mean Platelet Volume 10.5 fL (9.5-13.5); Monocytes Absolute Auto 0.7 10^3/uL (0.3-0.8); Monocytes Percent Auto 10.9 % (1.7-12.0); Neutrophils Absolute Auto 3.1 10^3/uL (1.4-6.5); Neutrophils Percent Auto 47.2 % (43.0-75.0); Platelet Count 204 10^3/uL (150-450); Red Blood Count 3.45 10^6/uL (4.70-6.10); Red Cell Distribution Width 15.7 % (11.0-15.0); White Blood Count 6.7 10^3/uL (4.0-11.0)
[2023-06-09 08:14] LABS: INR 2.55; Prothrombin Time 25.6 sec (9.0-11.6)
[2023-06-09 08:22] LABS: Alanine Aminotransferase 13 U/L (16-63); Albumin Globulin Ratio 0.8; Albumin Level 2.5 g/dL (3.4-5.0); Alkaline Phosphatase 79 U/L (46-116); Anion Gap 12.7; Aspartate Amino Transferase 18 U/L (15-37); Bilirubin Total 0.6 mg/dL (0.2-1.0); Calcium 8.4 mg/dL (8.5-10.1); Carbon Dioxide 25.4 mmol/L (21.0-32.0); Chloride 107 mmol/L (98-107); Estimated GFR (African America >60 (>=60); Estimated GFR (Non-African Ame 54 (>=60); Globulin 3.2 g/dL; Glucose 128 mg/dL (74-106); Magnesium 2.1 mg/dL (1.8-2.4); Phosphorus 4.2 mg/dL (2.6-4.7); Potassium 4.1 mmol/L (3.5-5.1); Sodium 141 mmol/L (136-145); Total Protein 5.7 g/dL (6.4-8.2)
[2023-06-12 17:09] LABS: Tacrolimus (FK506), Blood 8.4 ng/mL (2.0-20.0)
== END 2023-06-09 01:39 | disposition home or self-care (01) ==
LOC: LAB 01:38
PROVIDERS: PCP Internal Medicine; Visit Provider Internal Medicine
DX: N18.9 Chronic kidney disease, unspecified (principal); Z51.81 Encounter for therapeutic drug level monitoring
CPT/HCPCS: 36415; 80053; 80197; 83735; 84100; 85025; 85610

== ENCOUNTER 2023-06-16 00:44 | Outpatient (REF) | payer MEDICARE, OTHER, SELFPAY ==
--- OUTSIDE RECORDS SUMMARY | 2023-06-16 00:48 | XMS_ITS | CCD ---
Author Organization [facility] Care Team Providers Care Payroll Tax Analyst Name Role Phone PROVIDER, UNKNOWN Attending Unavailable [...] Unavailable [place]OEN[place], ASHLEY Cortes Admitting Unavailable [place], ASHELY Cortes Attending Unavailable MARIAELENA, DR RICH Hernandez [...] Unavailable Lillie, DO Osorio Primary Care Provider [phone] DAVID Aguilar Attending Provider Sadia Aguilar Attending [...] [PYRIDOSTIGMINE BROMIDE] Drug Allergy 2 GI Upset [facility] Work Phone: (1 source) Pyridostigmine Drug Allergy [...] Subcutaneous QHS Active inject 18 [IU] by anyak bcutaneous injection once daily at bedtime Lantus [...] Indications: Type 1 diabetes mellitus with nephropathy ([facility]) 3 units breakfast, 5 units [...] 10 units and notify provider K Phos Howard-Sod [facility]os Di & Howard 155-852-130 MG (6 sources) take 155-852 tablets by mouth twice daily K Phos Howard-Sod Phos Di & Howard 155-852-130 MG 1 tablet Orally twice daily Active take 155-852 tablets by mouth four times daily take 155-852 tablets by mouth four times daily K Phos Howard-Sod Phos Di & Howard 155-852-130 MG 1 tablet Orally Four times [...] needed. docusate sodium 50 mg / sennosides, snf 8.6 mg oral tablet (20 sources) Start: [...] by mouth daily with lunch. Magic Cup Holland with lunch 7110 mL 0 12/11/2021 Active Comment on above: Take 237 mL by mouth daily with lunch. 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 SPRING ASSEMBLER CURRENT USE OF INSULIN] Onset: 2 Episodic Other aftercare (5 sources) security compliance specialist (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 of anticoagulants; Translations: [COIL SPRING ASSEMBLER CURRNT USE ANTICOAGULANTS] Onset: 3 Episodic Other [...] care facility (current) drug therapy; Translations: [OTH [facility] CURRENT DRUG THERAPY] Onset: 02-05-2022 Episodic Other aftercare (4 sources) Encounter for orthopedic aftercare following surgical amputation; Translations: [ENC ORTHOPED AFTERCARE FLW SURG AMP] Onset: 02-05-2022 Episodic Other aftercare (4 sources) security compliance specialist (current) use of antibiotics; Translations: [[facility] CURRENT USE ANTIBIOTICS] Onset: 12-20-2021 Episodic Other aftercare (1 source) residential (current) use of aspirin; Translations: [[facility] CURRENT USE OF ASPIRIN] Onset: 01-19-2022 Episodic [...] Range Facility Office Visiton 05-19-2023 Follow-up visit [id number] Alex Almonte 1945 M Date Provider Department Center 05/19/2023 CAITY PALACIOS CARD [facility] Family History Problem Relation Age of Onset Cancer Mother Aneurysm Father Cancer Father Parkinsonism Father Family Status - Relation Status Age at Mother Father Level of Service:66943 [place] OFFICE/OUTPATIENT ESTABLISHED LOW MDM 20 MIN Reason for Visit and Comments: Follow-up [413546] - 6 month follow up Normal [facility] HbA1c (Bld) [Mass fraction]o n 03-18-2023 Interpretation and review of laboratory results Normal [facility] POCT glycosylated hemoglobin (Hb A1C) docked deviceon 03-18-2023 HbA1c (Bld) [Mass fraction] 7.8 % [facility] CNPRosalie 12-25-2022 CNPN Telephone (TXCTGL) ALEX ALMONTE ([id number]) 1945 M Date Time Provider Department 12/25/22 KIDNEY TXP COORDINATORS TXCTGL During your visit today, we recorded the following information about you: Duane Ryan 12/25/2022 10:41 AM Signed Labs 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 Administrative Land Checker Allergies As of Date: 12/25/2022 Noted Allergy [...] by mouth daily with lunch. 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 Magic Cup [place] with lunch aspirin, enteric coated (ASPIRIN, ENTERIC [...] in am? thanks! RF Pts RN at [facility] reports pts sister picks up [...] Apply 0. (more content not included)... Normal [facility] Office Visiton 09-09-2022 Follow-up visit [id number] Alex Almonte 1945 M Date Provider Department Center 09/09/2022 1596-SARTHAK PARNELL CARD [facility] Family History Problem Relation Age of Onset Cancer Mother Aneurysm Father Cancer Father Parkinsonism Father Family Status - Relation Status Age at Mother Father Level of Service:30318 [place] OFFICE/OUTPATIENT ESTABLISHED MOD MDM 30-39 MIN Normal [facility] Glucose Poct Glucometerson 0 07-20-2022 Commemt1 Glu2: Cleaned Meter Normal [facility] Comment on above: Result Comment: PERF ORMED BY: [facility] [address] [address] PATHOLOGIST NURSERY RN JOSE F ELLIOTT M.D. Performed By: #### G LULS #### Point of Care testing , Glucose [Mass/Vol] 176 mg/dL Normal [facility] Comment on above: Result Comment: [facility] Glucose Reference Range is dependent on time and content of last meal. Glucose of more than 200 mg/dL in a nonstressed, ambulatory subject supports the diagnosis of Diabetes Mellitus. Performed By: #### G MADY #### Point of Care testing , FK506 (TACROLIMUS) WHOLE BLO ODon 07-12-2022 Tacrolimus (FK506), Blood 10.9 ng/mL Normal 2.0-20.0 [facility] Comment on above: Result Comment: Trou gh (immediately following transplant) 15.0 . Trough (steady state, 2 weeks or more after transplant): 3.0 - 8.0 . Performed by LC-MS/MS technology. Performed By: #### F K506T ####[facility] U[address] [place], [place] [address]Dr. Farhat Leal CBC AUTO DIFFon 07-10-2022 BASO # 0.0 103/ul Normal 0.0-0.1 [facility] Comment on above: Performed By: #### C BC ####[facility] Smjlzbgqjr[address] [place], [place] [address]Dr. Farhat Leal Basophils/100 WBC (Bld) 0.5 % Normal 0.2-2.0 [facility] Comment on above: Performed By: #### C BC ####[facility] Vprwthbiak[address] [place], [place] [address]Dr. Farhat Leal EO # 0.3 103/ul Normal 0.0-0.7 [facility] Comment on above: Performed By: #### C BC ####[facility] Yijmcs[address]vq[address] [place], [place] [address]Dr. Farhat Leal Eosinophils/100 WBC (Bld) 4.9 % Normal 0.9-7.0 [facility] Comment on above: Performed By: #### C BC ####[facility] Ooviuxhomd[address] [place], [place] [address]Dr. Farhat Leal Erythrocyte distribution width (RBC) [Ratio] 13.8 % Normal 11.0-15.0 [facility] Comment on above: Performed By: #### C BC ####[facility] [address] [place] [address]Dr. Farhat Leal Hematocrit (Bld) [Volume fraction] 36.6 % Critically low 42.0-54.0 [facility] Comment on above: Performed By: #### C BC ####[facility] [address]upppjf[address] [place] [address]DrSkylar Farhat Leal Hemoglobin (Bld) [Mass/Vol] 12.2 g/dL Critically low 14.0-18.0 [facility] Comment on above: Performed By: #### C BC ####[facility] Mggmpeaoqg[address] [place], [place] [address]DrSkylar Madelynlorri Leal IG # 0.01 10e3/ul Normal 0.00-0.03 [facility] Comment on above: Performed By: #### C BC ####[facility] W[address] [place], [place] [address]DrSkylar Leal IG % 0.2 % Normal 0.0-0.5 [facility] Comment on above: Performed By: #### C BC ####[facility] Gqfwwopllf[address] [place], [place] [address]DrSkylar Farhat Elvis LYMPH # 2.2 103/ul Normal 1.2-3.8 [facility] Comment on above: Performed By: #### C BC ####[facility] Njceqeutki[address] [place], [place] [address]DrSkylar Madelynlorri Leal Lymphocytes/100 WBC (Bld) 33.9 % Normal 20.5-60.0 [facility] Comment on above: Performed By: #### C BC ####[facility] Nbuqqegloh[address] [place], [place] [address]DrSkylar Madelynlorri Leal MANUAL DIFF REQ NO Normal [facility] Comment on above: Performed By: #### C BC ####[facility] Phpwkdiich[address] [place], [place] [address]DrSkylar Lela MCH (RBC) [Entitic mass] 31.0 pg Normal 25.9-34.0 [facility] Comment on above: Performed By: #### C BC ####[facility] [address] [place] [id number]. Farhat Leal MCHC (RBC) [Mass/Vol] 33.3 g/dL Normal 29.9-35.2 [facility] Comment on above: Performed By: #### C BC ####[facility] Azpqdrpahu264[address] [place] [id number] Leal MCV (RBC) [Entitic vol] 93.1 fL Normal 80.0-94.0 [facility] Comment on above: Performed By: #### C BC ####[facility] Regxzpizph[address] [place], [place] [address]DrSkylar Leal MONO # 0.7 103/ul Normal 0.3-0.8 [facility] Comment on above: Performed By: #### C BC ####[facility] Bvupdrrgzg[address] [place], [place] [address]Dr. Farhat Leal Monocytes/100 WBC (Bld) 10.8 % Normal 1.7-12.0 [facility] Comment on above: Performed By: #### C BC ####[facility] Vfsgqiltwi[address] [place], [place] [address]Dr. Farhat Leal NEUT # 3.2 103/ul Normal 1.4-6.5 [facility] Comment on above: Performed By: #### C BC ####[facility] Mzhstqczsx[address] [place], [place] [address]DrSkylar Leal Neutrophils/100 WBC (Bld) 49.7 % Normal 43.0-75.0 [facility] Comment on above: Performed By: #### C BC ####[facility] Mitimyrwua[address] [place], [place] [id number] Leal Platelet mean volume (Bld) [Entitic vol] 10.9 fL Normal 9.5-13.5 [facility] Comment on above: Performed By: #### C BC ####[facility] U[address] [place], [place] [address]DrSkylar Leal PLT 195 103/ul Normal 150-450 [facility] Comment on above: Performed By: #### C BC ####[facility] Qsokputxiv[address] [place] [address]Dr. Farhat Leal RBC 3.93 106/ul Critically low 4.70-6.10 [facility] Comment on above: Performed By: #### C BC ####[facility] X[address] [place] [address]Dr. Farhat Leal WBC 6.4 103/ul Normal 4.0-11.0 [facility] Comment on above: Performed By: #### C BC ####[facility] Tyxwoacect[address] [place] [address]Dr. Farhat Leal MAGNESIUMon 07-10-2022 Magnesium [Mass/Vol] 1.9 mg/dL Normal 1.8-2.4 [facility] Comment on above: Performed By: #### Demetrice Manzo PHOS ####[facility] Togkkefsgo[address] [place], [place] [address]Dr. Farhat Leal PHOSPHORUSon 07-10-2022 Phosphate [Mass/Vol] 4.7 mg/dL Normal 2.6-4.7 [facility] Comment on above: Performed By: #### HENRI Winters ####[facility] [address]cawozres[address] [place], [place] [address]Dr. Farhat Leal PROF 14(COMP METB)on 023 Albumin [Mass/Vol] 2.7 g/dL Critically low 3.4-5.0 [facility] Comment on above: Performed By: #### C MP ####[facility] [address]ks[address]iew[address] [place] [address]Dr. Farhat Leal Albumin/Globulin [Mass ratio] 0.8 {ratio} Normal [facility] Comment on above: Performed By: #### C MP ####[facility] Fmqqjcrsfp[address] [place], [place] [address]Dr. Farhat Leal ALP [Catalytic activity/Vol] 59 U/L Normal 46-116 [facility] Comment on above: Performed By: #### C MP ####[facility] Lsnmgwwzuc[address] [place], [place] [address]Dr. Farhat Leal ALT [Catalytic activity/Vol] 16 U/L Normal 16-63 [facility] Comment on above: Performed By: #### C MP ####[facility] [address]ft[address] [place] [address]Dr. Madelynlorri Elvis Anion gap [Moles/Vol] 12.3 mmol/L Normal [facility] Comment on above: Performed By: #### C MP ####[facility] Zhpgtngdif[address] [place] [address]Dr. Madelynlorri Leal AST [Catalytic activity/Vol] 17 U/L Normal 15-37 [facility] Comment on above: Performed By: #### C MP ####[facility] Dusgsbgozy[address] [place], [place] [address]Dr. Farhat Leal Bilirubin [Mass/Vol] 0.5 mg/dL Normal 0.2-1.0 [facility] Comment on above: Performed By: #### C MP ####[facility] Tdcidyipgk[address] [place], [place] [address]Dr. Farhat Leal Calcium [Mass/Vol] 8.5 mg/dL Normal 8.5-10.1 [facility] Comment on above: Performed By: #### C MP ####[facility] Ckltkwhgcy[address] [place], [place] [address]Dr. Farhat Leal Chloride [Moles/Vol] 104 mmol/L Normal 98-107 [facility] Comment on above: Performed By: #### C MP ####[facility] Hocznoskvg[address] [place], [place] [address]Dr. Farhat Leal CO2 [Moles/Vol] 27.6 mmol/L Normal 21.0-32.0 [facility] Comment on above: Performed By: #### C MP ####[facility] Gckqxspcss3[address] [place], [place] [address]Dr. Farhat Leal Creatinine [Mass/Vol] 1.79 mg/dL Critically high 0.70-1.30 [facility] Comment on above: Performed By: #### C MP ####[facility] Fwhkcsmqbk02[address] [place], [place] [address]Dr. Farhat Leal EGFR-AF EMIRATI 45 mL/min/1.73m2 Critically low >=60 [facility] Comment on above: Performed By: #### C MP ####[facility] [address] [place] [id number]. Farhat Elvis EGFR-NON AF EMIRATI 37 mL/min/1.73m2 Critically low >=60 [facility] Comment on above: Performed By: #### C MP ####[facility] [address]ze[address] [place] [id number]. Farhat Elvis Globulin (S) [Mass/Vol] 3.2 g/dL Normal [facility] Comment on above: Performed By: #### C MP ####[facility] Xwkdqhagul[address] [place], [place] [address]Dr. Madelynlorri Elvis Glucose [Mass/Vol] 203 mg/dL Critically high 74-106 [facility] Comment on above: Performed By: #### C MP ####[facility] [address]ftcj[address] [place] [address]Dr. Farhat Leal Potassium [Moles/Vol] 3.9 mmol/L Normal 3.5-5.1 [facility] Comment on above: Performed By: #### C MP ####[facility] Hgcycxcxhb[address] [place], [place] [address]Dr. Madelynlorri Elvis Protein [Mass/Vol] 5.9 g/dL Critically low 6.4-8.2 [facility] Comment on above: Performed By: #### C MP ####[facility] C[address]dkqqkumu[address] [place] [address]Dr. Madelynlorri Leal Sodium [Moles/Vol] 140 mmol/L Normal 136-145 [facility] Comment on above: Performed By: #### C MP ####[facility] B[address]zsawzvi[address] [place] [address]Dr. Farhat Leal Urea nitrogen [Mass/Vol] 61.0 mg/dL Critically high 7.0-18.0 [facility] Comment on above: Performed By: #### C MP ####[facility] Nu[address]vmq[address] [place], [place] [address]DrSkylar Leal Urea nitrogen/Creatinine [Mass ratio] 34.1 mg/mg Normal [facility] Comment on above: Performed By: #### C MP ####[facility] [address] [place], [place] [address]DrSkylar Leal PROTIMEon 07-10-2022 INR Coag (PPP) [Relative time] 2.95 {INR} Normal [facility] Comment on above: Performed By: #### P T ####[facility] Q[address]yh[address] [place], [place] [address]DrSkylar Leal INR GUIDELINES SEE BELOW Normal [facility] Comment on above: Result Comment: MALINA RED INR: 2.0 - 3.0 CONDITIONS NOT LISTED BELOW 2.5 - 3.5 FOR PROSTHETIC HEART VALVE REPLACEMENT 2.5 - 3.5 RECURRENT THROMBOSIS Performed By: #### P T ####[facility] Loqresijvd[address] [place], [place] [address]DrSkylar Leal PT Coag (PPP) [Time] 29.4 s Critically high 9.0-11.6 [facility] Comment on above: Performed By: #### P T ####[facility] Jiud[address]qurbg[address] [place], [place] [address]DrSkylar Leal FK506 (TACROLIMUS) WHOLE BLO ODon 07-07-2022 Tacrolimus (FK506), Blood 8.3 ng/mL Normal 2.0-20.0 [facility] Comment on above: Result Comment: Trou gh (immediately following transplant) 15.0 . Trough (steady state, 2 weeks or more after transplant): 3.0 - 8.0 . Performed by LC-MS/MS technology. Performed By: #### F K506T ####[facility] Nssaplwedn[address] [place], [place] [address]DrSkylar Leal CBC AUTO DIFFon 07-03-2022 BASO # 0.0 103/ul Normal 0.0-0.1 [facility] Comment on above: Performed By: #### C BC ####[facility] Aewxzikclx[address] [place], [place] [address]DrSkylar Leal Basophils/100 WBC (Bld) 0.6 % Normal 0.2-2.0 [facility] Comment on above: Performed By: #### C BC ####[facility] [address]efrw[address] [place] [address]Dr. Farhat Leal EO # 0.3 103/ul Normal 0.0-0.7 [facility] Comment on above: Performed By: #### C BC ####[facility] Yav[address]npsm[address] [place] [address]Dr. Farhat Leal Eosinophils/100 WBC (Bld) 4.1 % Normal 0.9-7.0 [facility] Comment on above: Performed By: #### C BC ####[facility] Dfwggjiktp[address] [place], [place] [address]Dr. Farhat Leal Erythrocyte distribution width (RBC) [Ratio] 14.0 % Normal 11.0-15.0 [facility] Comment on above: Performed By: #### C BC ####[facility] Qvoeypsrrm[address] [place], [place] [address]Dr. Faraht Leal Hematocrit (Bld) [Volume fraction] 35.9 % Critically low 42.0-54.0 [facility] Comment on above: Performed By: #### C BC ####[facility] [address]vz[address]wm[address] [place], [place] [address]Dr. Farhat Leal Hemoglobin (Bld) [Mass/Vol] 12.0 g/dL Critically low 14.0-18.0 [facility] Comment on above: Performed By: #### C BC ####[facility] K[address]brexnkf[address] [place], [place] [address]DrSkylar Farhat Leal IG # 0.04 10e3/ul Critically high 0.00-0.03 [facility] Comment on above: Performed By: #### C BC ####[facility] Eknccvhxis[address] [place], [place] [address]Dr. Madelynlorri Leal IG % 0.6 % Critically high 0.0-0.5 [facility] Comment on above: Performed By: #### C BC ####[facility] Mmpkvjcqzb[address] [place], [place] [address]DrSkylar Leal LYMPH # 1.5 103/ul Normal 1.2-3.8 [facility] Comment on above: Performed By: #### C BC ####[facility] K[address]ogwv[address] [place] [address]Dr. Farhat Leal Lymphocytes/100 WBC (Bld) 21.5 % Normal 20.5-60.0 [facility] Comment on above: Performed By: #### C BC ####[facility] [address]jpt[address] [place] [address]Dr. Farhat Leal MANUAL DIFF REQ NO Normal [facility] Comment on above: Performed By: #### C BC ####[facility] [address]vul[address] [place] [address]Dr. Farhat Leal MCH (RBC) [Entitic mass] 30.8 pg Normal 25.9-34.0 [facility] Comment on above: Performed By: #### C BC ####[facility] Qnnrrxjtag[address] [place], [place] [address]Dr. Farhat Leal MCHC (RBC) [Mass/Vol] 33.4 g/dL Normal 29.9-35.2 [facility] Comment on above: Performed By: #### C BC ####[facility] Impcourrko[address] [place], [place] [address]Dr. Farhat Leal MCV (RBC) [Entitic vol] 92.1 fL Normal 80.0-94.0 [facility] Comment on above: Performed By: #### C BC ####[facility] [address]uxb[address] [place] [address]Dr. Farhat Leal MONO # 0.6 103/ul Normal 0.3-0.8 [facility] Comment on above: Performed By: #### C BC ####[facility] [address]mcnbogvvh[address] [place], [place] [address]Dr. Farhat Leal Monocytes/100 WBC (Bld) 8.7 % Normal 1.7-12.0 [facility] Comment on above: Performed By: #### C BC ####[facility] F[address]akmhige[address] [place], [place] [address]Dr. Farhat Leal NEUT # 4.4 103/ul Normal 1.4-6.5 [facility] Comment on above: Performed By: #### C BC ####[facility] [address]nspwr[address] [place] [address]Dr. Farhat Elvis Neutrophils/100 WBC (Bld) 64.5 % Normal 43.0-75.0 [facility] Comment on above: Performed By: #### C BC ####[facility] X[address]qwgv39[address] [place] [id number]. Madelynlorri Elvis Platelet mean volume (Bld) [Entitic vol] 10.1 fL Normal 9.5-13.5 [facility] Comment on above: Performed By: #### C BC ####[facility] Thybusbihv[address] [place] [address]Dr. Farhat Leal PLT 177 103/ul Normal 150-450 [facility] Comment on above: Performed By: #### C BC ####[facility] Vjeblgslex[address] [place] [address]Dr. Farhat Leal RBC 3.90 106/ul Critically low 4.70-6.10 [facility] Comment on above: Performed By: #### C BC ####[facility] Qmwcol[address]uz[address] [place] [address]Dr. Farhat Leal WBC 6.8 103/ul Normal 4.0-11.0 [facility] Comment on above: Performed By: #### C BC ####[facility] [address]ma[address]zic[address] [place] [address]DrSkylar Leal PROF 14(COMP METB)on 023 Albumin [Mass/Vol] 2.8 g/dL Critically low 3.4-5.0 [facility] Comment on above: Performed By: #### C MP ####[facility] Vtwzmwmiir[address] [place] [address]DrSkylar Leal Albumin/Globulin [Mass ratio] 0.8 {ratio} Normal [facility] Comment on above: Performed By: #### C MP ####[facility] [address]ns[address]tlueg[address] [place] [id number]. Farhat Leal ALP [Catalytic activity/Vol] 68 U/L Normal 46-116 [facility] Comment on above: Performed By: #### C MP ####[facility] Scxzjmhdhc9722 [place] [id number]. Farhat Leal ALT [Catalytic activity/Vol] 20 U/L Normal 16-63 [facility] Comment on above: Performed By: #### C MP ####[facility] C[address]ctlxm[address] [place] [id number]. Farhat Leal Anion gap [Moles/Vol] 11.1 mmol/L Normal Th e [facility] Comment on above: Performed By: #### C MP ####[facility] [address]bhwsff[address] [place] [id number]. Farhat Leal AST [Catalytic activity/Vol] 22 U/L Normal 15-37 [facility] Comment on above: Performed By: #### C MP ####[facility] Sdevsmyvpp4155 [place] [id number]. Farhat Elvis Bilirubin [Mass/Vol] 0.4 mg/dL Normal 0.2-1.0 [facility] Comment on above: Performed By: #### C MP ####[facility] Xgpotsqyuu0913 [place] [id number]. Farhat Elvis Calcium [Mass/Vol] 8.5 mg/dL Normal 8.5-10.1 [facility] Comment on above: Performed By: #### C MP ####[facility] Uqyubqzbjj2343 [place] [id number]. Farhat Elvis Chloride [Moles/Vol] 106 mmol/L Normal 98-107 [facility] Comment on above: Performed By: #### C MP ####[facility] Oaqwlmbjcl6217 [place] [id number]. Farhat Elvis CO2 [Moles/Vol] 29.1 mmol/L Normal 21.0-32.0 [facility] Comment on above: Performed By: #### C MP ####[facility] Lllaulwkxc4332 [place] [id number]. Farhat Elvis Creatinine [Mass/Vol] 1.70 mg/dL Critically high 0.70-1.30 [facility] Comment on above: Performed By: #### C MP ####[facility] Diwxlibvmg6635 [place] [id number]. Farhat Leal EGFR-AF EMIRATI 48 mL/min/1.73m2 Critically low >=60 [facility] Comment on above: Performed By: #### C MP ####[facility] Knhyeifhni5034 [place] [phone]. Farhat Leal EGFR-NON AF EMIRATI 39 mL/min/1.73m2 Critically low >=60 [facility] Comment on above: Performed By: #### C MP ####[facility] Qpugvluzux4915 [place] [address]Dr. Farhat Elvis Globulin (S) [Mass/Vol] 3.6 g/dL Normal [facility] Comment on above: Performed By: #### C MP ####[facility] Ivkpgoreeo1440 [place] [address]Dr. Farhat Elvis Glucose [Mass/Vol] 312 mg/dL Critically high 74-106 [facility] Comment on above: Performed By: #### C MP ####[facility] Tmigciguiw8675 [place] [phone]. Farhat Elvis Potassium [Moles/Vol] 4.2 mmol/L Normal 3.5-5.1 [facility] Comment on above: Performed By: #### C MP ####[facility] Dahfahomak[address] [place] [address]Dr. Farhat Elvis Protein [Mass/Vol] 6.4 g/dL Normal 6.4-8.2 [facility] Comment on above: Performed By: #### C MP ####[facility] Bmevgafqok5167 [place] [address]Dr. Farhat Leal Sodium [Moles/Vol] 142 mmol/L Normal 136-145 [facility] Comment on above: Performed By: #### C MP ####[facility] Asoojakbwv1471 [place] [phone]. Farhat Elvis Urea nitrogen [Mass/Vol] 49.0 mg/dL Critically high 7.0-18.0 [facility] Comment on above: Performed By: #### C MP ####[facility] Vjnbrgzvrl[address] [place], [place] [address]Dr. Farhat Leal Urea nitrogen/Creatinine [Mass ratio] 28.8 mg/mg Normal [facility] Comment on above: Performed By: #### C MP ####[facility] Hrwzjywvyl[address] [place], [place] [address]Dr. Farhat Leal PROTIMEon 07-03-2022 INR Coag (PPP) [Relative time] 2.23 {INR} Normal [facility] Comment on above: Performed By: #### P T ####[facility] Cyrqduxppl[address] [place], [place] [address]Dr. Farhat Leal INR GUIDELINES SEE BELOW Normal [facility] Comment on above: Result Comment: MALINA RED INR: 2.0 - 3.0 CONDITIONS NOT LISTED BELOW 2.5 - 3.5 FOR PROSTHETIC HEART VALVE REPLACEMENT 2.5 - 3.5 RECURRENT THROMBOSIS Performed By: #### P T ####[facility] Cowfbtghdq08[address] [place], [place] [address]Dr. Farhat Leal PT Coag (PPP) [Time] 22.6 s Critically high 9.0-11.6 [facility] Comment on above: Performed By: #### P T ####[facility] Gdmlksjdds[address] [place], [place] [address]Dr. Farhat Leal FK506 (TACROLIMUS) WHOLE BLO ODon 06-29-2022 Tacrolimus (FK506), Blood 12.2 ng/mL Normal 2.0-20.0 [facility] Comment on above: Result Comment: Trou gh (immediately following transplant) 15.0 . Trough (steady state, 2 weeks or more after transplant): 3.0 - 8.0 . Performed by LC-MS/MS technology. Performed By: #### F K506T ####[facility] Xuwvwqcynz597[address] [place], [place] [address]Dr. Farhat Leal CBC AUTO DIFFon 06-26-2022 BASO # 0.0 103/ul Normal 0.0-0.1 [facility] Comment on above: Performed By: #### C BC ####[facility] Uwpqdqfloe8652 [place] [phone]. Farhat Leal Basophils/100 WBC (Bld) 0.5 % Normal 0.2-2.0 [facility] Comment on above: Performed By: #### C BC ####[facility] Pimcfvlgon[address] [place], [place] [id number]. Farhat Leal EO # 0.3 103/ul Normal 0.0-0.7 [facility] Comment on above: Performed By: #### C BC ####[facility] Ycqeptaktu8[address] [place], [place] [address]Dr. Farhat Leal Eosinophils/100 WBC (Bld) 4.3 % Normal 0.9-7.0 [facility] Comment on above: Performed By: #### C BC ####[facility] Wqdwhdcdlo140[address] [place], [place] [address]Dr. Farhat Leal Erythrocyte distribution width (RBC) [Ratio] 14.1 % Normal 11.0-15.0 [facility] Comment on above: Performed By: #### C BC ####[facility] Ixqtxdwpjk373[address] [place], [place] [address]Dr. Farhat Leal Hematocrit (Bld) [Volume fraction] 35.4 % Critically low 42.0-54.0 [facility] Comment on above: Performed By: #### C BC ####[facility] Fyecapmrmk348[address] [place], [place] [address]Dr. Farhat Leal Hemoglobin (Bld) [Mass/Vol] 11.8 g/dL Critically low 14.0-18.0 [facility] Comment on above: Performed By: #### C BC ####[facility] Hgklphfdpo57[address] [place], [place] [address]Dr. Farhat Leal IG # 0.02 10e3/ul Normal 0.00-0.03 [facility] Comment on above: Performed By: #### C BC ####[facility] Piukepbiab92[address] [place], [place] [address]Dr. Farhat Leal IG % 0.3 % Normal 0.0-0.5 [facility] Comment on above: Performed By: #### C BC ####[facility] Gmcfveswtz6012 [place] [phone]. Farhat Leal LYMPH # 2.4 103/ul Normal 1.2-3.8 [facility] Comment on above: Performed By: #### C BC ####[facility] Lguneogtgh0822 [place] [phone]. Farhat Elvis Lymphocytes/100 WBC (Bld) 40.4 % Normal 20.5-60.0 [facility] Comment on above: Performed By: #### C BC ####[facility] Vpnpghebkz3519 [place] [phone]. Madelynlorri Leal MANUAL DIFF REQ NO Normal [facility] Comment on above: Performed By: #### C BC ####[facility] Tjrxmfxzki6986 [place] [phone]. Farhat Elvis MCH (RBC) [Entitic mass] 31.0 pg Normal 25.9-34.0 [facility] Comment on above: Performed By: #### C BC ####[facility] Puxyxhbfzb4663 [place] [phone]. Farhat Leal MCHC (RBC) [Mass/Vol] 33.3 g/dL Normal 29.9-35.2 [facility] Comment on above: Performed By: #### C BC ####[facility] Ggoljgnrgw5827 [place] [phone]. Farhat Leal MCV (RBC) [Entitic vol] 92.9 fL Normal 80.0-94.0 [facility] Comment on above: Performed By: #### C BC ####[facility] Evqoshshkc2099 [place] [phone]. Farhat Elvis MONO # 0.7 103/ul Normal 0.3-0.8 [facility] Comment on above: Performed By: #### C BC ####[facility] Bxvvvqavis2618 [place] [phone]. Madelynlorri Leal Monocytes/100 WBC (Bld) 11.1 % Normal 1.7-12.0 [facility] Comment on above: Performed By: #### C BC ####[facility] Prwhizkwlt0604 [place] [phone]. Farhat Leal NEUT # 2.6 103/ul Normal 1.4-6.5 [facility] Comment on above: Performed By: #### C BC ####[facility] Ecjrliyynl7891 [place] [phone]. Farhat Leal Neutrophils/100 WBC (Bld) 43.4 % Normal 43.0-75.0 [facility] Comment on above: Performed By: #### C BC ####[facility] Avjwdrfmbq0204 [place] [address]Dr. Farhat Leal Platelet mean volume (Bld) [Entitic vol] 10.4 fL Normal 9.5-13.5 [facility] Comment on above: Performed By: #### C BC ####[facility] Bgrlqeprps[address] [place], [place] [address]Dr. Madelynlorri Elvis PLT 211 103/ul Normal 150-450 [facility] Comment on above: Performed By: #### C BC ####[facility] Wptkwpjmvy[address] [place], [place] [address]Dr. aFrhat Leal RBC 3.81 106/ul Critically low 4.70-6.10 [facility] Comment on above: Performed By: #### C BC ####[facility] Fzoktfirql[address] [place], [place] [address]Dr. Farhat Leal WBC 6.0 103/ul Normal 4.0-11.0 [facility] Comment on above: Performed By: #### C BC ####[facility] G[address]qrywqwr[address] [place], [place] [address]Dr. Farhat Leal PROF 14(COMP METB)on 023 Albumin [Mass/Vol] 2.6 g/dL Critically low 3.4-5.0 [facility] Comment on above: Performed By: #### C MP ####[facility] Sldpfonqbm92[address] [place], [place] [address]Dr. Farhat Leal Albumin/Globulin [Mass ratio] 0.8 {ratio} Normal [facility] Comment on above: Performed By: #### C MP ####[facility] Mhdjxdberk2767 [place] [address]Dr. Farhat Leal ALP [Catalytic activity/Vol] 64 U/L Normal 46-116 [facility] Comment on above: Performed By: #### C MP ####[facility] Acioittajf8833 [place] [address]Dr. Farhat Leal ALT [Catalytic activity/Vol] 18 U/L Normal 16-63 [facility] Comment on above: Performed By: #### C MP ####[facility] Adpgqbqgxb2407 [place] [address]Dr. Farhat Leal Anion gap [Moles/Vol] 10.2 mmol/L Normal [facility] Comment on above: Performed By: #### C MP ####[facility] Rsvwpehzxw[address] [place], [place] [address]Dr. Farhat Leal AST [Catalytic activity/Vol] 16 U/L Normal 15-37 [facility] Comment on above: Performed By: #### C MP ####[facility] Bywjhthaxy24[address] [place], [place] [address]Dr. Farhat Leal Bilirubin [Mass/Vol] 0.6 mg/dL Normal 0.2-1.0 [facility] Comment on above: Performed By: #### C MP ####[facility] Bvdzrkorbs[address] [place], [place] [address]Dr. Farhat Leal Calcium [Mass/Vol] 8.5 mg/dL Normal 8.5-10.1 [facility] Comment on above: Performed By: #### C MP ####[facility] Ykdxprnzts5489 [place] [address]Dr. Farhat Leal Chloride [Moles/Vol] 106 mmol/L Normal 98-107 [facility] Comment on above: Performed By: #### C MP ####[facility] Fsmrloxqmu97[address] [place], [place] [address]Dr. Farhat Leal CO2 [Moles/Vol] 29.8 mmol/L Normal 21.0-32.0 [facility] Comment on above: Performed By: #### C MP ####[facility] Cenkwmetzy7671 [place] [phone]. Farhat Leal Creatinine [Mass/Vol] 1.60 mg/dL Critically high 0.70-1.30 [facility] Comment on above: Performed By: #### C MP ####[facility] Krkurdjubo9182 [place] [phone]. Farhat Leal EGFR-AF EMIRATI 51 mL/min/1.73m2 Critically low >=60 [facility] Comment on above: Performed By: #### C MP ####[facility] Iahnbtgflh0829 [place] [phone]. Farhat Leal EGFR-NON AF EMIRATI 42 mL/min/1.73m2 Critically low >=60 [facility] Comment on above: Performed By: #### C MP ####[facility] Vlivipbqye1578 [place] [phone]. Farhat Leal Globulin (S) [Mass/Vol] 3.4 g/dL Normal [facility] Comment on above: Performed By: #### C MP ####[facility] Yyfgtvyptr9076 [place] [phone]. Farhat Leal Glucose [Mass/Vol] 178 mg/dL Critically high 74-106 [facility] Comment on above: Performed By: #### C MP ####[facility] Qomqvyrxsn4358 [place] [phone]. Farhat Leal Potassium [Moles/Vol] 4.0 mmol/L Normal 3.5-5.1 [facility] Comment on above: Performed By: #### C MP ####[facility] Azvsgzhgcm5675 [place] [phone]. Farhat Leal Protein [Mass/Vol] 6.0 g/dL Critically low 6.4-8.2 [facility] Comment on above: Performed By: #### C MP ####[facility] Qmczjtqfak4100 [place] [phone]. Farhat Leal Sodium [Moles/Vol] 142 mmol/L Normal 136-145 [facility] Comment on above: Performed By: #### C MP ####[facility] Gkxijeehjw1374 [place] [address]Dr. Farhat Leal Urea nitrogen [Mass/Vol] 49.0 mg/dL Critically high 7.0-18.0 [facility] Comment on above: Performed By: #### C MP ####[facility] Ijmimypgsa2756 [place] [address]Dr. Farhat Leal Urea nitrogen/Creatinine [Mass ratio] 30.6 mg/mg Normal [facility] Comment on above: Performed By: #### C MP ####[facility] Uparnpvioi7200 [place] [address]Dr. Farhat Leal PROTIMEon 06-26-2022 INR Coag (PPP) [Relative time] 1.77 {INR} Normal [facility] Comment on above: Performed By: #### P T ####[facility] Faiurjdafm96[address] [place], [place] [address]Dr. Farhat Leal INR GUIDELINES SEE BELOW Normal [facility] Comment on above: Result Comment: MALINA RED INR: 2.0 - 3.0 CONDITIONS NOT LISTED BELOW 2.5 - 3.5 FOR PROSTHETIC HEART VALVE REPLACEMENT 2.5 - 3.5 RECURRENT THROMBOSIS Performed By: #### P T ####[facility] Sqezctjuro03[address] [place], [place] [address]Dr. Farhat Leal PT Coag (PPP) [Time] 18.2 s Critically high 9.0-11.6 [facility] Comment on above: Performed By: #### P T ####[facility] Xhrgbaccab028[address] [place], [place] [address]Dr. Farhat Leal FK506 (TACROLIMUS) WHOLE BLO ODon 06-22-2022 Tacrolimus (FK506), Blood 24.5 ng/mL Invalid Interpretation Code 2.0-20.0 [facility] Comment on above: Result Comment: Trou gh (immediately following transplant) 15.0 . Trough (steady state, 2 weeks or more after transplant): 3.0 - 8.0 . Performed by LC-MS/MS technology.Patient drug level exceeds published reference range. Evaluateclinically for signs of potential toxicity. Performed By: #### F K506T ####[facility] Biurrdljsc5896 [place] [phone]. Farhat Leal CBC AUTO DIFFon 06-19-2022 BASO # 0.1 103/ul Normal 0.0-0.1 [facility] Comment on above: Performed By: #### C BC ####[facility] Txctmculmb668[address] [place], [place] [address]Dr. Madelynlorri Leal Basophils/100 WBC (Bld) 0.7 % Normal 0.2-2.0 [facility] Comment on above: Performed By: #### C BC ####[facility] Hhvddrhelc69[address] [place], [place] [address]Dr. Madelynlorri Leal EO # 0.4 103/ul Normal 0.0-0.7 [facility] Comment on above: Performed By: #### C BC ####[facility] Pwtxtwwncu28[address] [place], [place] [address]Dr. Madelynlorri Leal Eosinophils/100 WBC (Bld) 5.7 % Normal 0.9-7.0 [facility] Comment on above: Performed By: #### C BC ####[facility] Ltsrpuglii247[address] [place], [place] [address]Dr. Madelynlorri Leal Erythrocyte distribution width (RBC) [Ratio] 14.5 % Normal 11.0-15.0 [facility] Comment on above: Performed By: #### C BC ####[facility] Zdyuidonvp45[address] [place], [place] [address]Dr. Farhat Leal Hematocrit (Bld) [Volume fraction] 34.1 % Critically low 42.0-54.0 [facility] Comment on above: Performed By: #### C BC ####[facility] Vbhizoyecw[address] [place], [place] [address]Dr. Madelynlorri Leal Hemoglobin (Bld) [Mass/Vol] 11.3 g/dL Critically low 14.0-18.0 [facility] Comment on above: Performed By: #### C BC ####[facility] Bysvbyywgp9[address] [place], [place] [address]Dr. Farhat Leal IG # 0.02 10e3/ul Normal 0.00-0.03 [facility] Comment on above: Performed By: #### C BC ####[facility] Jhacbioeii6067 [place] [phone]. Madelynlorri Leal IG % 0.3 % Normal 0.0-0.5 [facility] Comment on above: Performed By: #### C BC ####[facility] Upwnblciuv5844 [place] [phone]. Farhat Elvis LYMPH # 3.1 103/ul Normal 1.2-3.8 [facility] Comment on above: Performed By: #### C BC ####[facility] Ifzvgjckeo9267 [place] [address]Dr. Madelynlorri Leal Lymphocytes/100 WBC (Bld) 40.6 % Normal 20.5-60.0 [facility] Comment on above: Performed By: #### C BC ####[facility] Octuuqvkyr8371 [place] [address]Dr. Farhat Leal MANUAL DIFF REQ NO Normal [facility] Comment on above: Performed By: #### C BC ####[facility] Aunhnilauw5041 [place] [phone]. Farhat Elvis MCH (RBC) [Entitic mass] 30.6 pg Normal 25.9-34.0 [facility] Comment on above: Performed By: #### C BC ####[facility] Xhsrxpovkq7318 [place] [phone]. Farhat Elvis MCHC (RBC) [Mass/Vol] 33.1 g/dL Normal 29.9-35.2 [facility] Comment on above: Performed By: #### C BC ####[facility] Gnquycpucp6530 [place] [address]Dr. Farhat Leal MCV (RBC) [Entitic vol] 92.4 fL Normal 80.0-94.0 [facility] Comment on above: Performed By: #### C BC ####[facility] Fxkenomdip[address] [place], [place] [address]Dr. Farhat Leal MONO # 0.8 103/ul Normal 0.3-0.8 [facility] Comment on above: Performed By: #### C BC ####[facility] Dmijhlorvl1317 [place] [phone]. Farhat Leal Monocytes/100 WBC (Bld) 10.6 % Normal 1.7-12.0 [facility] Comment on above: Performed By: #### C BC ####[facility] Rwgckrabhi3455 [place] [phone]. Farhat Leal NEUT # 3.2 103/ul Normal 1.4-6.5 [facility] Comment on above: Performed By: #### C BC ####[facility] Qazbmfhrqr3313 [place] [phone]. Madelynlorri Leal Neutrophils/100 WBC (Bld) 42.1 % Critically low 43.0-75.0 [facility] Comment on above: Performed By: #### C BC ####[facility] Kxlnpoyvfs4162 [place] [address]Dr. Madelynlorri Elvis Platelet mean volume (Bld) [Entitic vol] 10.6 fL Normal 9.5-13.5 [facility] Comment on above: Performed By: #### C BC ####[facility] Tdlisqxqjy5028 [place] [phone]. Farhat Elvis PLT 187 103/ul Normal 150-450 [facility] Comment on above: Performed By: #### C BC ####[facility] Uebuyaxinm8836 [place] [phone]. Madelynlorri Leal RBC 3.69 106/ul Critically low 4.70-6.10 [facility] Comment on above: Performed By: #### C BC ####[facility] Dahmqrzwgy0261 [place] [phone]. Farhat Leal WBC 7.7 103/ul Normal 4.0-11.0 [facility] Comment on above: Performed By: #### C BC ####[facility] Coflncvadn6300 [place] [address]Dr. Farhat Leal PROF 14(COMP METB)on 023 Albumin [Mass/Vol] 2.5 g/dL Critically low 3.4-5.0 [facility] Comment on above: Performed By: #### C MP ####[facility] Bphrxpeacu5491 [place] [address]Dr. Madelynlorri Elvis Albumin/Globulin [Mass ratio] 0.8 {ratio} Normal [facility] Comment on above: Performed By: #### C MP ####[facility] Qsjyqqzfuy3602 [place] [address]Dr. Farhat Leal ALP [Catalytic activity/Vol] 60 U/L Normal 46-116 [facility] Comment on above: Performed By: #### C MP ####[facility] Xojhtgphox5809 [place] [address]Dr. Farhat Leal ALT [Catalytic activity/Vol] 16 U/L Normal 16-63 [facility] Comment on above: Performed By: #### C MP ####[facility] Hetomlahmm[address] [place], [place] [address]Dr. Farhat Leal Anion gap [Moles/Vol] 9.1 mmol/L Normal [facility] Comment on above: Performed By: #### C MP ####[facility] Zufddcvafr364[address] [place], [place] [address]Dr. Farhat Leal AST [Catalytic activity/Vol] 31 U/L Normal 15-37 [facility] Comment on above: Performed By: #### C MP ####[facility] Tadeisscgq[address] [place], [place] [address]Dr. Farhat Leal Bilirubin [Mass/Vol] 0.3 mg/dL Normal 0.2-1.0 [facility] Comment on above: Performed By: #### C MP ####[facility] Dhjetzypmh97[address] [place], [place] [address]Dr. Farhat Leal Calcium [Mass/Vol] 8.2 mg/dL Critically low 8.5-10.1 [facility] Comment on above: Performed By: #### C MP ####[facility] Bthffrkxlq[address] [place], [place] [address]Dr. Farhat Leal Chloride [Moles/Vol] 106 mmol/L Normal 98-107 [facility] Comment on above: Performed By: #### C MP ####[facility] Wtayxkkyxp6406 [place] [phone]. Farhat Leal CO2 [Moles/Vol] 27.0 mmol/L Normal 21.0-32.0 [facility] Comment on above: Performed By: #### C MP ####[facility] Khujjrrypr2809 [place] [phone]. Farhat Leal Creatinine [Mass/Vol] 1.51 mg/dL Critically high 0.70-1.30 [facility] Comment on above: Performed By: #### C MP ####[facility] Htduljigju5466 [place] [phone]. Farhat Leal EGFR-AF EMIRATI 55 mL/min/1.73m2 Critically low >=60 [facility] Comment on above: Performed By: #### C MP ####[facility] Beorngzygv2214 [place] [address]Dr. Farhat Elvis EGFR-NON AF EMIRATI 45 mL/min/1.73m2 Critically low >=60 [facility] Comment on above: Performed By: #### C MP ####[facility] Lpbypfcryc4006 [place] [phone]. Farhat Leal Globulin (S) [Mass/Vol] 3.2 g/dL Normal [facility] Comment on above: Performed By: #### C MP ####[facility] Sviiffpfkz6564 [place] [address]Dr. Farhat Leal Glucose [Mass/Vol] 165 mg/dL Critically high 74-106 [facility] Comment on above: Performed By: #### C MP ####[facility] Xdjujcuktf9260 [place] [phone]. Farhat Leal Potassium [Moles/Vol] 4.1 mmol/L Normal 3.5-5.1 [facility] Comment on above: Performed By: #### C MP ####[facility] Ssutdoiafs[address] [place], [place] [address]Dr. Farhat Leal Protein [Mass/Vol] 5.7 g/dL Critically low 6.4-8.2 [facility] Comment on above: Performed By: #### C MP ####[facility] Qxiwxaonow[address] [place], [place] [address]Dr. Farhat Leal Sodium [Moles/Vol] 138 mmol/L Normal 136-145 [facility] Comment on above: Performed By: #### C MP ####[facility] Kaxfawzvui[address] [place], [place] [address]Dr. Farhat Leal Urea nitrogen [Mass/Vol] 51.0 mg/dL Critically high 7.0-18.0 [facility] Comment on above: Performed By: #### C MP ####[facility] Mzxohetivv[address] [place], [place] [address]Dr. Farhat Leal Urea nitrogen/Creatinine [Mass ratio] 33.8 mg/mg Normal [facility] Comment on above: Performed By: #### C MP ####[facility] Ibafzogtzs[address] [place], [place] [address]Dr. Farhat Leal FK506 (TACROLIMUS) WHOLE BLO ODon 06-15-2022 Tacrolimus (FK506), Blood 16.4 ng/mL Normal 2.0-20.0 [facility] Comment on above: Result Comment: Trou gh (immediately following transplant) 15.0 . Trough (steady state, 2 weeks or more after transplant): 3.0 - 8.0 . Performed by LC-MS/MS technology. Performed By: #### F K506T ####[facility] Bvkhvydtod[address] [place], [place] [address]Dr. Farhat Leal PROTIMEon 06-15-2022 INR Coag (PPP) [Relative time] 1.64 {INR} Normal [facility] Comment on above: Performed By: #### P T ####[facility] Rqmoipdtkl186[address] [place], [place] [address]Dr. Farhat Leal INR GUIDELINES SEE BELOW Normal [facility] Comment on above: Result Comment: MALINA RED INR: 2.0 - 3.0 CONDITIONS NOT LISTED BELOW 2.5 - 3.5 FOR PROSTHETIC HEART VALVE REPLACEMENT 2.5 - 3.5 RECURRENT THROMBOSIS Performed By: #### P T ####[facility] Womtltfvnu9[address] [place], [place] [address]Dr. Farhat Leal PT Coag (PPP) [Time] 16.9 s Critically high 9.0-11.6 [facility] Comment on above: Performed By: #### P T ####[facility] Ewzjesdyuw[address] [place], [place] [address]Dr. Farhat Elvis CBC AUTO DIFFon 06-12-2022 BASO # 0.0 103/ul Normal 0.0-0.1 [facility] Comment on above: Performed By: #### C BC ####[facility] Htoqhesgyc[address] [place], [place] [address]Dr. Farhat Leal Basophils/100 WBC (Bld) 0.4 % Normal 0.2-2.0 [facility] Comment on above: Performed By: #### C BC ####[facility] Gczylqygfc[address] [place], [place] [address]Dr. Farhat Leal EO # 0.4 103/ul Normal 0.0-0.7 [facility] Comment on above: Performed By: #### C BC ####[facility] Gqvnxthcgt10[address] [place], [place] [address]Dr. Farhat Leal Eosinophils/100 WBC (Bld) 5.4 % Normal 0.9-7.0 [facility] Comment on above: Performed By: #### C BC ####[facility] Gtnzefaaam213[address] [place], [place] [address]Dr. Farhat Leal Erythrocyte distribution width (RBC) [Ratio] 14.7 % Normal 11.0-15.0 [facility] Comment on above: Performed By: #### C BC ####[facility] Xvvsamuqpl[address] [place], [place] [address]Dr. Farhat Leal Hematocrit (Bld) [Volume fraction] 34.8 % Critically low 42.0-54.0 [facility] Comment on above: Performed By: #### C BC ####[facility] Fctvtpwupd[address] [place], [place] [address]Dr. Farhat Leal Hemoglobin (Bld) [Mass/Vol] 11.7 g/dL Critically low 14.0-18.0 [facility] Comment on above: Performed By: #### C BC ####[facility] Ngnvhfrbgy6286 [place] [id number]. Farhat Leal IG # 0.02 10e3/ul Normal 0.00-0.03 [facility] Comment on above: Performed By: #### C BC ####[facility] Mcdhlslgko2189 [place] [id number]. Farhat Elvis IG % 0.3 % Normal 0.0-0.5 [facility] Comment on above: Performed By: #### C BC ####[facility] W[address]pqlmadg[address] [place] [address]Dr. Farhat Elvis LYMPH # 2.5 103/ul Normal 1.2-3.8 [facility] Comment on above: Performed By: #### C BC ####[facility] Zmbppuzvqg8775 [place] [address]Dr. Farhat Leal Lymphocytes/100 WBC (Bld) 36.8 % Normal 20.5-60.0 [facility] Comment on above: Performed By: #### C BC ####[facility] Nsyzknvbqr[address] [place] [address]Dr. Madelynlorri Leal MANUAL DIFF REQ NO Normal [facility] Comment on above: Performed By: #### C BC ####[facility] Tsigftkvfb84[address] [place] [address]Dr. Farhat Elvis MCH (RBC) [Entitic mass] 30.9 pg Normal 25.9-34.0 [facility] Comment on above: Performed By: #### C BC ####[facility] Bcqoqovpdp44[address] [place] [address]Dr. Farhat Elvis MCHC (RBC) [Mass/Vol] 33.6 g/dL Normal 29.9-35.2 [facility] Comment on above: Performed By: #### C BC ####[facility] Uyiklmglkx63[address] [place] [address]Dr. Farhat Elvis MCV (RBC) [Entitic vol] 91.8 fL Normal 80.0-94.0 [facility] Comment on above: Performed By: #### C BC ####[facility] Mgflqsbjkg8451 [place] [id number]. Farhat Leal MONO # 0.8 103/ul Normal 0.3-0.8 [facility] Comment on above: Performed By: #### C BC ####[facility] Wtwtcivmgd2985 [place] [id number]. Farhat Leal Monocytes/100 WBC (Bld) 11.9 % Normal 1.7-12.0 [facility] Comment on above: Performed By: #### C BC ####[facility] Xauzmcqejq6580 [place] [id number]. Farhat Leal NEUT # 3.1 103/ul Normal 1.4-6.5 [facility] Comment on above: Performed By: #### C BC ####[facility] Iyjbirskbn6987 [place] [id number]. Farhat Leal Neutrophils/100 WBC (Bld) 45.2 % Normal 43.0-75.0 [facility] Comment on above: Performed By: #### C BC ####[facility] Fsueesmwdy7474 [place] [phone]. Farhat Leal Platelet mean volume (Bld) [Entitic vol] 10.5 fL Normal 9.5-13.5 [facility] Comment on above: Performed By: #### C BC ####[facility] Brfkudwovy5706 [place] [id number]. Farhat Leal PLT 175 103/ul Normal 150-450 [facility] Comment on above: Performed By: #### C BC ####[facility] Ofcfwmsrar9144 [place] [phone]. Farhat Leal RBC 3.79 106/ul Critically low 4.70-6.10 [facility] Comment on above: Performed By: #### C BC ####[facility] Rygjzoudvy1442 [place] [id number]. Farhat Leal WBC 6.8 103/ul Normal 4.0-11.0 [facility] Comment on above: Performed By: #### C BC ####[facility] Jxhumgbfbj8050 [place] [id number]. Farhat Leal MAGNESIUMon 06-12-2022 Magnesium [Mass/Vol] 1.6 mg/dL Critically low 1.8-2.4 [facility] Comment on above: Performed By: #### C MP, MG, PHOS ####[facility] Xkiddydmgt3563 [place] [address]Dr. Farhat Leal PHOSPHORUSon 06-12-2022 Phosphate [Mass/Vol] 3.8 mg/dL Normal 2.6-4.7 [facility] Comment on above: Performed By: #### C MP, MG, PHOS ####[facility] Bnukwhpmyj5565 [place] [address]Dr. Farhat Leal PROF 14(COMP METB)on 023 Albumin [Mass/Vol] 2.6 g/dL Critically low 3.4-5.0 [facility] Comment on above: Performed By: #### C MP, MG, PHOS ####[facility] Ogmcgicpyx2235 [place] [address]Dr. Farhat Leal Albumin/Globulin [Mass ratio] 0.8 {ratio} Normal [facility] Comment on above: Performed By: #### C MP, MG, PHOS ####[facility] Cpgtmdylox9298 [place] [address]Dr. Farhat Leal ALP [Catalytic activity/Vol] 64 U/L Normal 46-116 [facility] Comment on above: Performed By: #### C MP, MG, PHOS ####[facility] Zmpxrjewhn4539 [place] [address]Dr. Farhat Leal ALT [Catalytic activity/Vol] 18 U/L Normal 16-63 [facility] Comment on above: Performed By: #### C MP, MG, PHOS ####[facility] Cvmndyuicm2501 [place] [address]Dr. Farhat Leal Anion gap [Moles/Vol] 12.9 mmol/L Normal [facility] Comment on above: Performed By: #### C MP, MG, PHOS ####[facility] Ynygjotqor0177 [place] [address]DrSkylar Leal AST [Catalytic activity/Vol] 18 U/L Normal 15-37 [facility] Comment on above: Performed By: #### C MP, MG, PHOS ####[facility] Yblnyinsan6301 [place] [address]Dr. Farhat Leal Bilirubin [Mass/Vol] 0.4 mg/dL Normal 0.2-1.0 [facility] Comment on above: Performed By: #### C MP, MG, PHOS ####[facility] Egyuuxtikj[address] [place], [place] [address]Dr. Farhat Leal Calcium [Mass/Vol] 8.7 mg/dL Normal 8.5-10.1 [facility] Comment on above: Performed By: #### C MP, MG, PHOS ####[facility] Lzysdkrzgm[address] [place], [place] [address]Dr. Farhat Leal Chloride [Moles/Vol] 105 mmol/L Normal 98-107 [facility] Comment on above: Performed By: #### C MP, MG, PHOS ####[facility] Ovtqxqctyp[address] [place], [place] [address]Dr. Farhat Leal CO2 [Moles/Vol] 27.9 mmol/L Normal 21.0-32.0 [facility] Comment on above: Performed By: #### C MP, MG, PHOS ####[facility] Heeaaparuw9[address] [place], [place] [address]Dr. Farhat Leal Creatinine [Mass/Vol] 1.53 mg/dL Critically high 0.70-1.30 [facility] Comment on above: Performed By: #### C MP, MG, PHOS ####[facility] Jbovswxogw19[address] [place], [place] [address]Dr. Farhat Leal EGFR-AF EMIRATI 54 mL/min/1.73m2 Critically low >=60 [facility] Comment on above: Performed By: #### C MP, MG, PHOS ####[facility] Pmokmebupc[address] [place], [place] [address]Dr. Farhat Leal EGFR-NON AF EMIRATI 44 mL/min/1.73m2 Critically low >=60 [facility] Comment on above: Performed By: #### C MP, MG, PHOS ####[facility] Gamxhaidxs2636 [place] [address]Dr. Farhat Leal Globulin (S) [Mass/Vol] 3.4 g/dL Normal [facility] Comment on above: Performed By: #### C MP, MG, PHOS ####[facility] Wxtnyevnir0746 [place] [address]Dr. Farhat Leal Glucose [Mass/Vol] 179 mg/dL Critically high 74-106 [facility] Comment on above: Performed By: #### C MP, MG, PHOS ####[facility] Yrbktnjgmw[address] [place], [place] [address]Dr. Farhat Leal Potassium [Moles/Vol] 3.8 mmol/L Normal 3.5-5.1 [facility] Comment on above: Performed By: #### C MP, MG, PHOS ####[facility] Ratltgzbah[address] [place], [place] [address]Dr. Farhat Leal Protein [Mass/Vol] 6.0 g/dL Critically low 6.4-8.2 [facility] Comment on above: Performed By: #### C MP, MG, PHOS ####[facility] Qmrsczkzfn38[address] [place], [place] [address]Dr. Farhat Leal Sodium [Moles/Vol] 142 mmol/L Normal 136-145 [facility] Comment on above: Performed By: #### C MP, MG, PHOS ####[facility] Splimxpdxv5317[address] [place], [place] [address]Dr. Farhat Leal Urea nitrogen [Mass/Vol] 56.0 mg/dL Critically high 7.0-18.0 [facility] Comment on above: Performed By: #### C MP, MG, PHOS ####[facility] Brrjilriml[address] [place], [place] [address]Dr. Farhat Leal Urea nitrogen/Creatinine [Mass ratio] 36.6 mg/mg Normal [facility] Comment on above: Performed By: #### C MP, MG, PHOS ####[facility] Rxzcbvwshi[address] [place], [place] [address]Dr. Farhat Leal FK506 (TACROLIMUS) WHOLE BLO ODon 06-08-2022 Tacrolimus (FK506), Blood 13.2 ng/mL Normal 2.0-20.0 [facility] Comment on above: Result Comment: Trou gh (immediately following transplant) 15.0 . Trough (steady state, 2 weeks or more after transplant): 3.0 - 8.0 . Performed by LC-MS/MS technology. Performed By: #### F K506T ####[facility] Peerszidiv[address] [place], [place] [address]Dr. Farhat Elvis CBC AUTO DIFFon 06-05-2022 BASO # 0.1 103/ul Normal 0.0-0.1 [facility] Comment on above: Performed By: #### C BC ####[facility] Qqgfljrxlp94[address] [place], [place] [address]Dr. Farhat Leal Basophils/100 WBC (Bld) 0.8 % Normal 0.2-2.0 [facility] Comment on above: Performed By: #### C BC ####[facility] Qenvqdyepm[address] [place], [place] [address]Dr. Madelynlorri Leal EO # 0.3 103/ul Normal 0.0-0.7 [facility] Comment on above: Performed By: #### C BC ####[facility] Kidynzdluq05[address] [place], [place] [address]Dr. Farhat Leal Eosinophils/100 WBC (Bld) 4.7 % Normal 0.9-7.0 [facility] Comment on above: Performed By: #### C BC ####[facility] Krupqgrxaa646[address] [place], [place] [address]Dr. Farhat Leal Erythrocyte distribution width (RBC) [Ratio] 15.1 % Critically high 11.0-15.0 [facility] Comment on above: Performed By: #### C BC ####[facility] Zeywjhkpfe[address] [place], [place] [address]Dr. Farhat Leal Hematocrit (Bld) [Volume fraction] 35.5 % Critically low 42.0-54.0 [facility] Comment on above: Performed By: #### C BC ####[facility] Pswdwttwoy0079 [place] [id number]. Farhat Leal Hemoglobin (Bld) [Mass/Vol] 11.7 g/dL Critically low 14.0-18.0 [facility] Comment on above: Performed By: #### C BC ####[facility] Mffrqtlrul5835 [place] [address]Dr. Farhat Leal IG # 0.01 10e3/ul Normal 0.00-0.03 [facility] Comment on above: Performed By: #### C BC ####[facility] Pwevqrnqig[address] [place], [place] [address]Dr. Farhat Leal IG % 0.2 % Normal 0.0-0.5 [facility] Comment on above: Performed By: #### C BC ####[facility] Lcqqfeiiki[address] [place], [place] [address]Dr. Farhat Leal LYMPH # 2.1 103/ul Normal 1.2-3.8 [facility] Comment on above: Performed By: #### C BC ####[facility] Dfqbvwsnlo[address] [place], [place] [address]Dr. Madelynlorri Leal Lymphocytes/100 WBC (Bld) 34.5 % Normal 20.5-60.0 [facility] Comment on above: Performed By: #### C BC ####[facility] Kmslpndmcl[address] [place], [place] [address]Dr. Farhat Leal MANUAL DIFF REQ NO Normal [facility] Comment on above: Performed By: #### C BC ####[facility] Labtrhrkdm500[address] [place], [place] [address]Dr. Farhat Leal MCH (RBC) [Entitic mass] 30.6 pg Normal 25.9-34.0 [facility] Comment on above: Performed By: #### C BC ####[facility] Jhetafautq[address] [place], [place] [address]Dr. Farhat Leal MCHC (RBC) [Mass/Vol] 33.0 g/dL Normal 29.9-35.2 [facility] Comment on above: Performed By: #### C BC ####[facility] Apbykiqvuh0712 [place] [phone]. Farhat Leal MCV (RBC) [Entitic vol] 92.9 fL Normal 80.0-94.0 [facility] Comment on above: Performed By: #### C BC ####[facility] Mbehzwqxow9386 [place] [phone]. Farhat Leal MONO # 0.7 103/ul Normal 0.3-0.8 [facility] Comment on above: Performed By: #### C BC ####[facility] Ezpbeuvxfx9687 [place] [phone]. Farhat Leal Monocytes/100 WBC (Bld) 11.4 % Normal 1.7-12.0 [facility] Comment on above: Performed By: #### C BC ####[facility] Dqfpjkpywz0292 [place] [phone]. Farhat Leal NEUT # 2.9 103/ul Normal 1.4-6.5 [facility] Comment on above: Performed By: #### C BC ####[facility] Kjxekgdfgf1306 [place] [phone]. Farhat Leal Neutrophils/100 WBC (Bld) 48.4 % Normal 43.0-75.0 [facility] Comment on above: Performed By: #### C BC ####[facility] Qvdevikqcd4599 [place] [phone]. Farhat Leal Platelet mean volume (Bld) [Entitic vol] 10.7 fL Normal 9.5-13.5 [facility] Comment on above: Performed By: #### C BC ####[facility] Yktqjbytwy3661 [place] [phone]. Farhat Leal PLT 185 103/ul Normal 150-450 [facility] Comment on above: Performed By: #### C BC ####[facility] Cmtaueihwo3220 [place] [phone]. Farhat Leal RBC 3.82 106/ul Critically low 4.70-6.10 [facility] Comment on above: Performed By: #### C BC ####[facility] Cvlpgsubln0052 [place] [phone]. Farhat Leal WBC 6.0 103/ul Normal 4.0-11.0 [facility] Comment on above: Performed By: #### C BC ####[facility] Inimqfdecq4868 [place] [address]Dr. Madelynlorri Leal MAGNESIUMon 06-05-2022 Magnesium [Mass/Vol] 1.9 mg/dL Normal 1.8-2.4 [facility] Comment on above: Performed By: #### P HOS, MG ####[facility] Qkniaqguak6327 [place] [address]Dr. Farhat Leal PHOSPHORUSon 06-05-2022 Phosphate [Mass/Vol] 4.4 mg/dL Normal 2.6-4.7 [facility] Comment on above: Performed By: #### P HOS, MG ####[facility] Mztqgpbaod5053 [place] [address]Dr. Farhat Leal PROTIMEon 06-05-2022 INR Coag (PPP) [Relative time] 2.16 {INR} Normal [facility] Comment on above: Performed By: #### P T ####[facility] Huowahrvou5144 [place] [address]Dr. Farhat Leal INR GUIDELINES SEE BELOW Normal [facility] Comment on above: Result Comment: MALINA RED INR: 2.0 - 3.0 CONDITIONS NOT LISTED BELOW 2.5 - 3.5 FOR PROSTHETIC HEART VALVE REPLACEMENT 2.5 - 3.5 RECURRENT THROMBOSIS Performed By: #### P T ####[facility] Cyfrsoktmj6161 [place] [address]Dr. Farhat Leal PT Coag (PPP) [Time] 21.9 s Critically high 9.0-11.6 [facility] Comment on above: Performed By: #### P T ####[facility] Fcxbdkyrtw[address] [place], [place] [address]Dr. Farhat Leal FK506 (TACROLIMUS) WHOLE BLO ODon 06-01-2022 Tacrolimus (FK506), Blood 26.4 ng/mL Invalid Interpretation Code 2.0-20.0 [facility] Comment on above: Result Comment: Trou gh (immediately following transplant) 15.0 . Trough (steady state, 2 weeks or more after transplant): 3.0 - 8.0 . Performed by LC-MS/MS technology.Patient drug level exceeds published reference range. Evaluateclinically for signs of potential toxicity. Performed By: #### F K506T ####[facility] Xezksgvemp7618 [place] [address]Dr. Farhat Leal CBC AUTO DIFFon 05-29-2022 BASO # 0.0 103/ul Normal 0.0-0.1 [facility] Comment on above: Performed By: #### C BC ####[facility] Lwkditkgma[address] [place], [place] [address]Dr. Farhat Leal Basophils/100 WBC (Bld) 0.6 % Normal 0.2-2.0 [facility] Comment on above: Performed By: #### C BC ####[facility] Sogoangcng39[address] [place], [place] [address]Dr. Farhat Leal EO # 0.3 103/ul Normal 0.0-0.7 [facility] Comment on above: Performed By: #### C BC ####[facility] Iibxpefckg6[address] [place], [place] [address]Dr. Farhat Leal Eosinophils/100 WBC (Bld) 4.7 % Normal 0.9-7.0 [facility] Comment on above: Performed By: #### C BC ####[facility] Quuwcwjpay[address] [place], [place] [address]Dr. Farhat Leal Erythrocyte distribution width (RBC) [Ratio] 15.3 % Critically high 11.0-15.0 [facility] Comment on above: Performed By: #### C BC ####[facility] Rmjvoomrjd[address] [place], [place] [address]Dr. Farhat Leal Hematocrit (Bld) [Volume fraction] 36.6 % Critically low 42.0-54.0 [facility] Comment on above: Performed By: #### C BC ####[facility] Thywabxpay[address] [place], [place] [address]Dr. Farhat Leal Hemoglobin (Bld) [Mass/Vol] 12.3 g/dL Critically low 14.0-18.0 [facility] Comment on above: Performed By: #### C BC ####[facility] Pnsobfmrfl0250 [place] [address]DrSkylar Leal IG # 0.02 10e3/ul Normal 0.00-0.03 [facility] Comment on above: Performed By: #### C BC ####[facility] Rzvogdjcos8877 [place] [address]DrSkylar Leal IG % 0.3 % Normal 0.0-0.5 [facility] Comment on above: Performed By: #### C BC ####[facility] Nluhbhvjkl1059 [place] [address]DrSkylar Leal LYMPH # 2.8 103/ul Normal 1.2-3.8 [facility] Comment on above: Performed By: #### C BC ####[facility] Zzhnvuinol5548 [place] [address]DrSkylar Leal Lymphocytes/100 WBC (Bld) 44.4 % Normal 20.5-60.0 [facility] Comment on above: Performed By: #### C BC ####[facility] Fuvgxyyqiu0499 [place] [address]DrSkylar Leal MANUAL DIFF REQ NO Normal [facility] Comment on above: Performed By: #### C BC ####[facility] Wifnwjfhdi0848 [place] [address]DrSkylar Leal MCH (RBC) [Entitic mass] 30.4 pg Normal 25.9-34.0 [facility] Comment on above: Performed By: #### C BC ####[facility] Xlshojffou4556 [place] [id number] Leal MCHC (RBC) [Mass/Vol] 33.6 g/dL Normal 29.9-35.2 [facility] Comment on above: Performed By: #### C BC ####[facility] Fcfejoqgox7304 [place] [phone] Leal MCV (RBC) [Entitic vol] 90.4 fL Normal 80.0-94.0 [facility] Comment on above: Performed By: #### C BC ####[facility] Ccinlgveci3477 [place] [phone]. Farhat Leal MONO # 0.7 103/ul Normal 0.3-0.8 [facility] Comment on above: Performed By: #### C BC ####[facility] Njjvnqxmyc8668 [place] [phone]. Farhat Leal Monocytes/100 WBC (Bld) 10.7 % Normal 1.7-12.0 [facility] Comment on above: Performed By: #### C BC ####[facility] Xrvodqrsuz1329 [place] [address]Dr. Farhat Leal NEUT # 2.5 103/ul Normal 1.4-6.5 [facility] Comment on above: Performed By: #### C BC ####[facility] Lwftbcuukk4935 [place] [address]Dr. Farhat Leal Neutrophils/100 WBC (Bld) 39.3 % Critically low 43.0-75.0 [facility] Comment on above: Performed By: #### C BC ####[facility] Nunticlvst5659 [place] [address]Dr. Farhat Leal Platelet mean volume (Bld) [Entitic vol] 10.5 fL Normal 9.5-13.5 [facility] Comment on above: Performed By: #### C BC ####[facility] Vbmgorotxy6287 [place] [address]Dr. Farhat Leal PLT 190 103/ul Normal 150-450 [facility] Comment on above: Performed By: #### C BC ####[facility] Pfjvybrqrq8193 [place] [id number]. Farhat Leal RBC 4.05 106/ul Critically low 4.70-6.10 [facility] Comment on above: Performed By: #### C BC ####[facility] Spxlxxqhje[address]64 [place] [place] [id number]. Farhat Leal WBC 6.4 103/ul Normal 4.0-11.0 [facility] Comment on above: Performed By: #### C BC ####[facility] Pryurpghou[address] [place] [address]Dr. Farhat Leal PROF 14(COMP METB)on 023 Albumin [Mass/Vol] 2.5 g/dL Critically low 3.4-5.0 [facility] Comment on above: Performed By: #### C MP ####[facility] Bdcqntkkbw4943 [place] [address]Dr. Farhat Leal Albumin/Globulin [Mass ratio] 0.8 {ratio} Normal [facility] Comment on above: Performed By: #### C MP ####[facility] Lfbbvarqhp3432 [place] [address]Dr. Farhat Leal ALP [Catalytic activity/Vol] 61 U/L Normal 46-116 [facility] Comment on above: Performed By: #### C MP ####[facility] Sqwvjabxgi9[address] [place], [place] [address]Dr. Farhat Leal ALT [Catalytic activity/Vol] 16 U/L Normal 16-63 [facility] Comment on above: Performed By: #### C MP ####[facility] Dtnqyossgx11[address] [place], [place] [address]Dr. Farhat Lael Anion gap [Moles/Vol] 12.3 mmol/L Normal [facility] Comment on above: Performed By: #### C MP ####[facility] Ybeziaxbrh[address] [place], [place] [address]Dr. Farhat Leal AST [Catalytic activity/Vol] 18 U/L Normal 15-37 [facility] Comment on above: Performed By: #### C MP ####[facility] Ecqewlmpfy349[address] [place], [place] [address]Dr. Farhat Leal Bilirubin [Mass/Vol] 0.5 mg/dL Normal 0.2-1.0 [facility] Comment on above: Performed By: #### C MP ####[facility] Rxdaorkfmz974[address] [place], [place] [address]Dr. Farhat Leal Calcium [Mass/Vol] 8.6 mg/dL Normal 8.5-10.1 [facility] Comment on above: Performed By: #### C MP ####[facility] Kqzpmvezch7909 [place] [id number]. Farhat Leal Chloride [Moles/Vol] 105 mmol/L Normal 98-107 [facility] Comment on above: Performed By: #### C MP ####[facility] Kefunptdah9801 [place] [id number]. Farhat Leal CO2 [Moles/Vol] 28.6 mmol/L Normal 21.0-32.0 [facility] Comment on above: Performed By: #### C MP ####[facility] Jgesgvfvmu5462 [place] [address]Dr. Farhat Leal Creatinine [Mass/Vol] 1.47 mg/dL Critically high 0.70-1.30 [facility] Comment on above: Performed By: #### C MP ####[facility] Vqibuoraes5[address] [place], [place] [address]Dr. Farhat Elvis EGFR-AF EMIRATI 56 mL/min/1.73m2 Critically low >=60 [facility] Comment on above: Performed By: #### C MP ####[facility] Fgnmaedmgs3279 [place] [address]Dr. Farhat Leal EGFR-NON AF EMIRATI 46 mL/min/1.73m2 Critically low >=60 [facility] Comment on above: Performed By: #### C MP ####[facility] Ipthdxgbrx5052 [place] [address]Dr. Farhat Elvis Globulin (S) [Mass/Vol] 3.3 g/dL Normal [facility] Comment on above: Performed By: #### C MP ####[facility] Ytadbqqsbk8336 [place] [id number]. Farhat Elvis Glucose [Mass/Vol] 164 mg/dL Critically high 74-106 [facility] Comment on above: Performed By: #### C MP ####[facility] Tykkyjpbhk8414 [place] [address]Dr. Farhat Elvis Potassium [Moles/Vol] 3.9 mmol/L Normal 3.5-5.1 [facility] Comment on above: Performed By: #### C MP ####[facility] Mucdycfiqg4862 [place] [address]Dr. Farhat Leal Protein [Mass/Vol] 5.8 g/dL Critically low 6.4-8.2 [facility] Comment on above: Performed By: #### C MP ####[facility] Rfvxgnexot3186 [place] [address]Dr. Farhat Leal Sodium [Moles/Vol] 142 mmol/L Normal 136-145 [facility] Comment on above: Performed By: #### C MP ####[facility] Illadhtzkx4578 [place] [address]Dr. Farhat Leal Urea nitrogen [Mass/Vol] 53.0 mg/dL Critically high 7.0-18.0 [facility] Comment on above: Performed By: #### C MP ####[facility] Lixobdtavd1169[address] [place], [place] [address]Dr. Farhat Leal Urea nitrogen/Creatinine [Mass ratio] 36.1 mg/mg Normal [facility] Comment on above: Performed By: #### C MP ####[facility] Gluqfvaxkw912[address] [place], [place] [address]Dr. Farhat Leal PROTIMEon 05-29-2022 INR Coag (PPP) [Relative time] 2.41 {INR} Normal [facility] Comment on above: Performed By: #### P T ####[facility] Ivdskuxcma240[address] [place], [place] [address]Dr. Farhat Leal INR GUIDELINES SEE BELOW Normal [facility] Comment on above: Result Comment: MALINA RED INR: 2.0 - 3.0 CONDITIONS NOT LISTED BELOW 2.5 - 3.5 FOR PROSTHETIC HEART VALVE REPLACEMENT 2.5 - 3.5 RECURRENT THROMBOSIS Performed By: #### P T ####[facility] Cmczfvyxfv716[address] [place], [place] [address]Dr. Farhat Leal PT Coag (PPP) [Time] 24.3 s Critically high 9.0-11.6 [facility] Comment on above: Performed By: #### P T ####[facility] Fftovsdeig0933 [place] [address]Dr. Farhat Leal FK506 (TACROLIMUS) WHOLE BLO ODon 05-25-2022 Tacrolimus (FK506), Blood 5.1 ng/mL Normal 2.0-20.0 [facility] Comment on above: Result Comment: Trou gh (immediately following transplant) 15.0 . Trough (steady state, 2 weeks or more after transplant): 3.0 - 8.0 . Performed by LC-MS/MS technology. Performed By: #### F K506T ####[facility] Aprmpjtymx3724[address] [place], [place] [address]Dr. Farhat Leal CBC AUTO DIFFon 05-22-2022 BASO # 0.0 103/ul Normal 0.0-0.1 [facility] Comment on above: Performed By: #### C BC ####[facility] Amtvugtywc687[address] [place], [place] [address]Dr. Farhat Leal Basophils/100 WBC (Bld) 0.5 % Normal 0.2-2.0 [facility] Comment on above: Performed By: #### C BC ####[facility] Czfwjgbenl722[address] [place], [place] [address]Dr. Farhat Leal EO # 0.2 103/ul Normal 0.0-0.7 [facility] Comment on above: Performed By: #### C BC ####[facility] Zwdqrtrkgu935[address] [place], [place] [address]Dr. Farhat Leal Eosinophils/100 WBC (Bld) 4.0 % Normal 0.9-7.0 [facility] Comment on above: Performed By: #### C BC ####[facility] Qfhddpbrxx435[address] [place], [place] [address]Dr. Farhat Leal Erythrocyte distribution width (RBC) [Ratio] 15.5 % Critically high 11.0-15.0 [facility] Comment on above: Performed By: #### C BC ####[facility] Kulfwvybmr003[address] [place], [place] [address]Dr. Farhat Leal Hematocrit (Bld) [Volume fraction] 34.1 % Critically low 42.0-54.0 [facility] Comment on above: Performed By: #### C BC ####[facility] Vjvnpbkywc3140 [place] [id number]. Farhat Leal Hemoglobin (Bld) [Mass/Vol] 11.3 g/dL Critically low 14.0-18.0 [facility] Comment on above: Performed By: #### C BC ####[facility] Thvjlercgy2229 [place] [id number]. Farhat Leal IG # 0.03 10e3/ul Normal 0.00-0.03 [facility] Comment on above: Performed By: #### C BC ####[facility] Qgsdduneut4882 [place] [id number]. Farhat Leal IG % 0.5 % Normal 0.0-0.5 [facility] Comment on above: Performed By: #### C BC ####[facility] Ahasxxgply6464 [place] [address]Dr. Farhat Leal LYMPH # 2.1 103/ul Normal 1.2-3.8 [facility] Comment on above: Performed By: #### C BC ####[facility] Jwnkxpptal9685 [place] [id number]. Farhat Leal Lymphocytes/100 WBC (Bld) 34.6 % Normal 20.5-60.0 [facility] Comment on above: Performed By: #### C BC ####[facility] Amtgpmlyop0316 [place] [id number]. Farhat Leal MANUAL DIFF REQ NO Normal [facility] Comment on above: Performed By: #### C BC ####[facility] Npihahkpiv5798 [place] [phone]. Farhat Leal MCH (RBC) [Entitic mass] 30.3 pg Normal 25.9-34.0 [facility] Comment on above: Performed By: #### C BC ####[facility] Ujsaqpvovj5907 [place] [id number]. Farhat Leal MCHC (RBC) [Mass/Vol] 33.1 g/dL Normal 29.9-35.2 [facility] Comment on above: Performed By: #### C BC ####[facility] Jhnjwqajgg8341 [place] [id number]. Farhta Leal MCV (RBC) [Entitic vol] 91.4 fL Normal 80.0-94.0 [facility] Comment on above: Performed By: #### C BC ####[facility] Evfmmngcpt6530 [place] [id number]. Farhat Leal MONO # 0.7 103/ul Normal 0.3-0.8 [facility] Comment on above: Performed By: #### C BC ####[facility] Blthxdoyil3400 [place] [id number]. Farhat Leal Monocytes/100 WBC (Bld) 11.6 % Normal 1.7-12.0 [facility] Comment on above: Performed By: #### C BC ####[facility] Corqspnrsx130[address] [place], [place] [address]Dr. Farhat Leal NEUT # 2.9 103/ul Normal 1.4-6.5 [facility] Comment on above: Performed By: #### C BC ####[facility] Svdgacmjon9[address] [place], [place] [id number]. Farhat Leal Neutrophils/100 WBC (Bld) 48.8 % Normal 43.0-75.0 [facility] Comment on above: Performed By: #### C BC ####[facility] Kweokakavu94[address] [place], [place] [address]Dr. Farhat Leal Platelet mean volume (Bld) [Entitic vol] 10.9 fL Normal 9.5-13.5 [facility] Comment on above: Performed By: #### C BC ####[facility] Jdaafoezbz5[address] [place], [place] [id number]. Farhat Leal PLT 186 103/ul Normal 150-450 [facility] Comment on above: Performed By: #### C BC ####[facility] Aehzkphtqq23[address] [place], [place] [address]Dr. Farhat Leal RBC 3.73 106/ul Critically low 4.70-6.10 [facility] Comment on above: Performed By: #### C BC ####[facility] Vbytelvsef7973 [place] [address]Dr. Farhat Leal WBC 6.0 103/ul Normal 4.0-11.0 [facility] Comment on above: Performed By: #### C BC ####[facility] Kbvxkztkbp5332 [place] [address]Dr. Farhat Leal PROF 14(COMP METB)on 023 Albumin [Mass/Vol] 2.7 g/dL Critically low 3.4-5.0 [facility] Comment on above: Performed By: #### C MP ####[facility] Kwbxixaqwm4035 [place] [address]Dr. Farhat Leal Albumin/Globulin [Mass ratio] 0.8 {ratio} Normal [facility] Comment on above: Performed By: #### C MP ####[facility] Nlkdrpmpxa7970 [place] [address]Dr. Farhat Leal ALP [Catalytic activity/Vol] 60 U/L Normal 46-116 [facility] Comment on above: Performed By: #### C MP ####[facility] Qcdlbhpuyj0657 [place] [address]Dr. Farhat Leal ALT [Catalytic activity/Vol] 17 U/L Normal 16-63 [facility] Comment on above: Performed By: #### C MP ####[facility] Efanahdogh7975 [place] [address]Dr. Farhat Leal Anion gap [Moles/Vol] 9.6 mmol/L Normal [facility] Comment on above: Performed By: #### C MP ####[facility] Ynyaaktczj6836 [place] [address]Dr. Farhat Leal AST [Catalytic activity/Vol] 14 U/L Critically low 15-37 [facility] Comment on above: Performed By: #### C MP ####[facility] Bjuxglyubu2322 [place] [address]Dr. Farhat Leal Bilirubin [Mass/Vol] 0.5 mg/dL Normal 0.2-1.0 [facility] Comment on above: Performed By: #### C MP ####[facility] Wtbrvcwyzm9629 [place] [id number]. Farhat Leal Calcium [Mass/Vol] 8.4 mg/dL Critically low 8.5-10.1 [facility] Comment on above: Performed By: #### C MP ####[facility] Etstdsslyv6912 [place] [id number]. Farhat Leal Chloride [Moles/Vol] 104 mmol/L Normal 98-107 [facility] Comment on above: Performed By: #### C MP ####[facility] Dtwiubyoyz5301 [place] [address]Dr. Farhat Leal CO2 [Moles/Vol] 27.2 mmol/L Normal 21.0-32.0 [facility] Comment on above: Performed By: #### C MP ####[facility] Tacddhmuvh8088[address] [place], [place] [address]Dr. Farhat Leal Creatinine [Mass/Vol] 1.24 mg/dL Normal 0.70-1.30 [facility] Comment on above: Performed By: #### C MP ####[facility] Primcvozgd9988[address] [place], [place] [address]Dr. Farhat Leal EGFR-AF EMIRATI >60 Normal >=60 [facility] Comment on above: Performed By: #### C MP ####[facility] Rchorvwwxo3964[address] [place], [place] [address]Dr. Farhat Elvis EGFR-NON AF EMIRATI 57 mL/min/1.73m2 Critically low >=60 [facility] Comment on above: Performed By: #### C MP ####[facility] Lyqqfvaexp227[address] [place], [place] [address]Dr. Farhat Leal Globulin (S) [Mass/Vol] 3.3 g/dL Normal [facility] Comment on above: Performed By: #### C MP ####[facility] Gkooevyulr6864 [place] [address]Dr. Farhat Leal Glucose [Mass/Vol] 275 mg/dL Critically high 74-106 [facility] Comment on above: Performed By: #### C MP ####[facility] Mrgpveyfny3681 [place] [address]Dr. Farhat Leal Potassium [Moles/Vol] 3.8 mmol/L Normal 3.5-5.1 [facility] Comment on above: Performed By: #### C MP ####[facility] Izffdkqmsp8459 [place] [address]Dr. Farhat Leal Protein [Mass/Vol] 6.0 g/dL Critically low 6.4-8.2 [facility] Comment on above: Performed By: #### C MP ####[facility] Xycamfchkn0228 [place] [address]Dr. Farhat Leal Sodium [Moles/Vol] 137 mmol/L Normal 136-145 [facility] Comment on above: Performed By: #### C MP ####[facility] Szegylnhgz597[address] [place], [place] [address]Dr. Farhat Leal Urea nitrogen [Mass/Vol] 54.0 mg/dL Critically high 7.0-18.0 [facility] Comment on above: Performed By: #### C MP ####[facility] Tfethhiqzm510[address] [place], [place] [address]Dr. Farhat Leal Urea nitrogen/Creatinine [Mass ratio] 43.5 mg/mg Normal [facility] Comment on above: Performed By: #### C MP ####[facility] Upkaourqvg424[address] [place], [place] [address]Dr. Farhat Leal PROTIMEon 05-22-2022 INR Coag (PPP) [Relative time] 2.27 {INR} Normal [facility] Comment on above: Performed By: #### P T ####[facility] Wztbsdkkkm89[address] [place], [place] [address]Dr. Farhat Leal INR GUIDELINES SEE BELOW Normal [facility] Comment on above: Result Comment: MALINA RED INR: 2.0 - 3.0 CONDITIONS NOT LISTED BELOW 2.5 - 3.5 FOR PROSTHETIC HEART VALVE REPLACEMENT 2.5 - 3.5 RECURRENT THROMBOSIS Performed By: #### P T ####[facility] Jazjgkfhge798[address] [place], [place] [address]Dr. Farhat Leal PT Coag (PPP) [Time] 23.0 s Critically high 9.0-11.6 [facility] Comment on above: Performed By: #### P T ####[facility] Oumhkcerkv8480[address] [place], [place] [address]DrSkylar Leal FK506 (TACROLIMUS) WHOLE BLO ODon 05-19-2022 Tacrolimus (FK506), Blood 7.8 ng/mL Normal 2.0-20.0 [facility] Comment on above: Result Comment: Trou gh (immediately following transplant) 15.0 . Trough (steady state, 2 weeks or more after transplant): 3.0 - 8.0 . Performed by LC-MS/MS technology. Performed By: #### F K506T ####[facility] Uivqlghqtk447[address] [place], [place] [address]DrSkylar Leal CBC AUTO DIFFon 05-15-2022 BASO # 0.0 103/ul Normal 0.0-0.1 [facility] Comment on above: Performed By: #### C BC ####[facility] Vhnepyajyo037[address] [place], [place] [address]DrSkylar Leal Basophils/100 WBC (Bld) 0.4 % Normal 0.2-2.0 [facility] Comment on above: Performed By: #### C BC ####[facility] Ulytkuyerc6735[address] [place], [place] [address]DrSkylar Leal EO # 0.2 103/ul Normal 0.0-0.7 [facility] Comment on above: Performed By: #### C BC ####[facility] Nsxrdrwlaf395[address] [place], [place] [address]DrSkylar Leal Eosinophils/100 WBC (Bld) 3.0 % Normal 0.9-7.0 [facility] Comment on above: Performed By: #### C BC ####[facility] Dyqhjmrtxc1715[address] [place], [place] [address]DrSkylar Leal Erythrocyte distribution width (RBC) [Ratio] 15.7 % Critically high 11.0-15.0 [facility] Comment on above: Performed By: #### C BC ####[facility] Elfjagpezv335[address] [place], [place] [address]Dr. Yilorri Leal Hematocrit (Bld) [Volume fraction] 36.8 % Critically low 42.0-54.0 [facility] Comment on above: Performed By: #### C BC ####[facility] Afuikadvux6037 [place] [address]Dr. Farhat Leal Hemoglobin (Bld) [Mass/Vol] 12.4 g/dL Critically low 14.0-18.0 [facility] Comment on above: Performed By: #### C BC ####[facility] Rurhmandfh4677 [place] [address]Dr. Farhat Leal IG # 0.01 10e3/ul Normal 0.00-0.03 [facility] Comment on above: Performed By: #### C BC ####[facility] Ypgxpfzfaw4535 [place] [address]Dr. Farhat Leal IG % 0.1 % Normal 0.0-0.5 [facility] Comment on above: Performed By: #### C BC ####[facility] Ycimolciqz999[address] [place], [place] [address]Dr. Farhat Leal LYMPH # 2.4 103/ul Normal 1.2-3.8 [facility] Comment on above: Performed By: #### C BC ####[facility] Eiocxpkaiu7811[address] [place], [place] [address]Dr. Farhat Leal Lymphocytes/100 WBC (Bld) 35.6 % Normal 20.5-60.0 [facility] Comment on above: Performed By: #### C BC ####[facility] Mvznuvukuv028[address] [place], [place] [address]Dr. Farhat Leal MANUAL DIFF REQ NO Normal [facility] Comment on above: Performed By: #### C BC ####[facility] Pgdhwgijdm[address] [place], [place] [address]Dr. Farhat Leal MCH (RBC) [Entitic mass] 30.1 pg Normal 25.9-34.0 [facility] Comment on above: Performed By: #### C BC ####[facility] Cmxmcquarx150[address] [place], [place] [address]Dr. Farhat Leal MCHC (RBC) [Mass/Vol] 33.7 g/dL Normal 29.9-35.2 [facility] Comment on above: Performed By: #### C BC ####[facility] Zsqccktrlk6975 [place] [address]DrSkylar Leal MCV (RBC) [Entitic vol] 89.3 fL Normal 80.0-94.0 [facility] Comment on above: Performed By: #### C BC ####[facility] Wnjljramfn289[address] [place], [place] [address]DrSkylar Leal MONO # 0.7 103/ul Normal 0.3-0.8 [facility] Comment on above: Performed By: #### C BC ####[facility] Udrrvsptnw610[address] [place], [place] [address]DrSkylar Leal Monocytes/100 WBC (Bld) 10.8 % Normal 1.7-12.0 [facility] Comment on above: Performed By: #### C BC ####[facility] Swszrxobsp057[address] [place], [place] [address]DrSkylar Leal NEUT # 3.4 103/ul Normal 1.4-6.5 [facility] Comment on above: Performed By: #### C BC ####[facility] Vdnahazzfh2935[address] [place], [place] [address]DrSkylar Leal Neutrophils/100 WBC (Bld) 50.1 % Normal 43.0-75.0 [facility] Comment on above: Performed By: #### C BC ####[facility] Dfydjbrwim6530[address] [place], [place] [address]DrSkylar Leal Platelet mean volume (Bld) [Entitic vol] 10.2 fL Normal 9.5-13.5 [facility] Comment on above: Performed By: #### C BC ####[facility] Hqjwmdqbjx4913[address] [place], [place] [address]DrSkylar Leal PLT 190 103/ul Normal 150-450 [facility] Comment on above: Performed By: #### C BC ####[facility] Koaadcqjwx6937[address] [place], [place] [address]DrSkylar Leal RBC 4.12 106/ul Critically low 4.70-6.10 [facility] Comment on above: Performed By: #### C BC ####[facility] Dciecpijpx4035 [place] [address]Dr. Farhat Leal WBC 6.8 103/ul Normal 4.0-11.0 [facility] Comment on above: Performed By: #### C BC ####[facility] Owbjntxuot9844 [place] [address]DrSkylar Leal PROF 14(COMP METB)on 023 Albumin [Mass/Vol] 2.8 g/dL Critically low 3.4-5.0 [facility] Comment on above: Performed By: #### C MP ####[facility] Mektbzwsvg3024[address] [place], [place] [address]DrSkylar Leal Albumin/Globulin [Mass ratio] 0.9 {ratio} Normal [facility] Comment on above: Performed By: #### C MP ####[facility] Euzvqabwjs770[address] [place], [place] [address]Dr. Farhat Leal ALP [Catalytic activity/Vol] 66 U/L Normal 46-116 [facility] Comment on above: Performed By: #### C MP ####[facility] Ykanneqiec906[address] [place], [place] [address]DrSkylar Leal ALT [Catalytic activity/Vol] 15 U/L Critically low 16-63 [facility] Comment on above: Performed By: #### C MP ####[facility] Yzqyyyksoa511[address] [place], [place] [address]DrSkylar Leal Anion gap [Moles/Vol] 11.1 mmol/L Normal [facility] Comment on above: Performed By: #### C MP ####[facility] Qdpidajzlc812[address] [place], [place] [address]DrSkylar Leal AST [Catalytic activity/Vol] 14 U/L Critically low 15-37 [facility] Comment on above: Performed By: #### C MP ####[facility] Wfwekyxdzv098[address] [place], [place] [address]DrSkylar Leal Bilirubin [Mass/Vol] 0.8 mg/dL Normal 0.2-1.0 [facility] Comment on above: Performed By: #### C MP ####[facility] Qonwmwkjqm3460[address] [place], [place] [address]Dr. Farhat Leal Calcium [Mass/Vol] 8.9 mg/dL Normal 8.5-10.1 [facility] Comment on above: Performed By: #### C MP ####[facility] Jqlejejxil640[address] [place], [place] [address]Dr. Farhat Leal Chloride [Moles/Vol] 101 mmol/L Normal 98-107 [facility] Comment on above: Performed By: #### C MP ####[facility] Wphcvfhyso833[address] [place], [place] [address]Dr. Farhat Leal CO2 [Moles/Vol] 28.2 mmol/L Normal 21.0-32.0 [facility] Comment on above: Performed By: #### C MP ####[facility] Bjjgkpndlg12[address] [place], [place] [address]Dr. Farhat Elvis Creatinine [Mass/Vol] 1.23 mg/dL Normal 0.70-1.30 [facility] Comment on above: Performed By: #### C MP ####[facility] Jikbzfuuso39[address] [place], [place] [address]Dr. Farhat Elvis EGFR-AF EMIRATI >60 Normal >=60 [facility] Comment on above: Performed By: #### C MP ####[facility] Nbqrrylwzw[address] [place], [place] [address]Dr. Madelynlorri Elvis EGFR-NON AF EMIRATI 57 mL/min/1.73m2 Critically low >=60 [facility] Comment on above: Performed By: #### C MP ####[facility] Fjgieyucit[address] [place], [place] [address]Dr. Farhat Leal Globulin (S) [Mass/Vol] 3.2 g/dL Normal [facility] Comment on above: Performed By: #### C MP ####[facility] Xnqfbzlgsb[address] [place], [place] [address]Dr. Farhat Leal Glucose [Mass/Vol] 333 mg/dL Critically high 74-106 [facility] Comment on above: Performed By: #### C MP ####[facility] [address]ke[address] [place] [address]Dr. Farhat Leal Potassium [Moles/Vol] 4.3 mmol/L Normal 3.5-5.1 [facility] Comment on above: Performed By: #### C MP ####[facility] Dlzfqfozsv64[address] [place] [address]Dr. Farhat Leal Protein [Mass/Vol] 6.0 g/dL Critically low 6.4-8.2 [facility] Comment on above: Performed By: #### C MP ####[facility] Kbxgmmiuyn268[address] [place], [place] [address]Dr. Farhat Leal Sodium [Moles/Vol] 136 mmol/L Normal 136-145 [facility] Comment on above: Performed By: #### C MP ####[facility] Aiddvfyoae7[address] [place], [place] [address]Dr. Farhat Leal Urea nitrogen [Mass/Vol] 58.0 mg/dL Critically high 7.0-18.0 [facility] Comment on above: Performed By: #### C MP ####[facility] Vsqhwqvqea[address] [place], [place] [address]Dr. Farhat Leal Urea nitrogen/Creatinine [Mass ratio] 47.2 mg/mg Normal [facility] Comment on above: Performed By: #### C MP ####[facility] Skcjlonrss74[address] [place], [place] [address]Dr. Farhat Leal PROTIMEon 05-13-2022 INR Coag (PPP) [Relative time] 3.51 {INR} Normal [facility] Comment on above: Performed By: #### P T ####[facility] Umugleimxq456[address] [place], [place] [address]Dr. Farhat Leal INR GUIDELINES SEE BELOW Normal [facility] Comment on above: Result Comment: MALINA RED INR: 2.0 - 3.0 CONDITIONS NOT LISTED BELOW 2.5 - 3.5 FOR PROSTHETIC HEART VALVE REPLACEMENT 2.5 - 3.5 RECURRENT THROMBOSIS Performed By: #### P T ####[facility] [address]og[address] [place] [address]Dr. Farhat Leal PT Coag (PPP) [Time] 34.7 s Critically high 9.0-11.6 [facility] Comment on above: Performed By: #### P T ####[facility] Lyqqmyjtba913[address] [place], [place] [address]Dr. Farhat Leal FK506 (TACROLIMUS) WHOLE BLO ODon 05-11-2022 Tacrolimus (FK506), Blood 14.4 ng/mL Normal 2.0-20.0 [facility] Comment on above: Result Comment: Trou gh (immediately following transplant) 15.0 . Trough (steady state, 2 weeks or more after transplant): 3.0 - 8.0 . Performed by LC-MS/MS technology. Performed By: #### F K506T ####[facility] Ilhtevgsfz598[address] [place], [place] [address]Dr. Farhat Leal CBC AUTO DIFFon 05-08-2022 BASO # 0.0 103/ul Normal 0.0-0.1 [facility] Comment on above: Performed By: #### C BC ####[facility] Iawjftaxmp[address] [place], [place] [address]Dr. Farhat Leal Basophils/100 WBC (Bld) 0.5 % Normal 0.2-2.0 [facility] Comment on above: Performed By: #### C BC ####[facility] Dvbtpwbbnw134[address] [place], [place] [address]Dr. Farhat Leal EO # 0.2 103/ul Normal 0.0-0.7 [facility] Comment on above: Performed By: #### C BC ####[facility] Bibkecbqzz940[address] [place], [place] [address]Dr. Farhat Leal Eosinophils/100 WBC (Bld) 2.9 % Normal 0.9-7.0 [facility] Comment on above: Performed By: #### C BC ####[facility] Fhwiwgppxo158[address] [place], [place] [address]Dr. Farhat Leal Erythrocyte distribution width (RBC) [Ratio] 16.0 % Critically high 11.0-15.0 [facility] Comment on above: Performed By: #### C BC ####[facility] [address]zubcrrbp[address] [place] [address]Dr. Farhat Leal Hematocrit (Bld) [Volume fraction] 35.7 % Critically low 42.0-54.0 [facility] Comment on above: Performed By: #### C BC ####[facility] Govaszinjt8[address] [place] [address]Dr. Farhat Leal Hemoglobin (Bld) [Mass/Vol] 11.9 g/dL Critically low 14.0-18.0 [facility] Comment on above: Performed By: #### C BC ####[facility] Tkzojwwafi3[address] [place], [place] [address]Dr. Farhat Leal IG # 0.03 10e3/ul Normal 0.00-0.03 [facility] Comment on above: Performed By: #### C BC ####[facility] Oypztavljs04[address] [place], [place] [address]DrSkylar Leal IG % 0.5 % Normal 0.0-0.5 [facility] Comment on above: Performed By: #### C BC ####[facility] Eueoubdwgs5729[address] [place], [place] [address]DrSkylar Leal LYMPH # 2.4 103/ul Normal 1.2-3.8 [facility] Comment on above: Performed By: #### C BC ####[facility] Raggbwijfk398[address] [place], [place] [address]Dr. Farhat Leal Lymphocytes/100 WBC (Bld) 37.8 % Normal 20.5-60.0 [facility] Comment on above: Performed By: #### C BC ####[facility] Wssmuycrsv25[address] [place], [place] [address]DrSkylar Leal MANUAL DIFF REQ NO Normal [facility] Comment on above: Performed By: #### C BC ####[facility] Nbordkeyzi934[address] [place], [place] [address]DrSkylar Leal MCH (RBC) [Entitic mass] 30.4 pg Normal 25.9-34.0 [facility] Comment on above: Performed By: #### C BC ####[facility] Pgwavrutgo9[address] [place] [id number]. Farhat Elvis MCHC (RBC) [Mass/Vol] 33.3 g/dL Normal 29.9-35.2 [facility] Comment on above: Performed By: #### C BC ####[facility] Xjtmyytbqj6710 [place] [id number]. Farhat Leal MCV (RBC) [Entitic vol] 91.1 fL Normal 80.0-94.0 [facility] Comment on above: Performed By: #### C BC ####[facility] Vsbfppizep77[address] [place], [place] [address]Dr. Farhat Leal MONO # 0.7 103/ul Normal 0.3-0.8 [facility] Comment on above: Performed By: #### C BC ####[facility] Cdbsskuouc280[address] [place], [place] [address]Dr. Farhat Leal Monocytes/100 WBC (Bld) 11.1 % Normal 1.7-12.0 [facility] Comment on above: Performed By: #### C BC ####[facility] Kjhzbjyftq598[address] [place], [place] [address]Dr. Farhat Leal NEUT # 2.9 103/ul Normal 1.4-6.5 [facility] Comment on above: Performed By: #### C BC ####[facility] Ahwfrxichs454[address] [place], [place] [address]Dr. Farhat Leal Neutrophils/100 WBC (Bld) 47.2 % Normal 43.0-75.0 [facility] Comment on above: Performed By: #### C BC ####[facility] W[address]xs[address]axgv[address] [place], [place] [id number] Leal Platelet mean volume (Bld) [Entitic vol] 11.0 fL Normal 9.5-13.5 [facility] Comment on above: Performed By: #### C BC ####[facility] Wqfntdinna[address] [place], [place] [id number]. Farhat Leal PLT 191 103/ul Normal 150-450 [facility] Comment on above: Performed By: #### C BC ####[facility] [address]ifhjj[address] [place] [address]Dr. Farhat Leal RBC 3.92 106/ul Critically low 4.70-6.10 [facility] Comment on above: Performed By: #### C BC ####[facility] Mgvttsfzwr0838 [place] [address]Dr. Madelynlorri Elvis WBC 6.2 103/ul Normal 4.0-11.0 [facility] Comment on above: Performed By: #### C BC ####[facility] Rygfcyrpra027[address] [place] [address]Dr. Farhat Elvis MAGNESIUMon 05-08-2022 Magnesium [Mass/Vol] 1.9 mg/dL Normal 1.8-2.4 [facility] Comment on above: Performed By: #### P HOS, MG ####[facility] Fypqwpmdzl64[address] [place], [place] [address]Dr. Farhat Elvis PHOSPHORUSon 05-08-2022 Phosphate [Mass/Vol] 4.5 mg/dL Normal 2.6-4.7 [facility] Comment on above: Performed By: #### P HOS, MG ####[facility] Ekveezxspx367[address] [place], [place] [address]Dr. Madelynlorri Leal PROF 14(COMP METB)on 023 Albumin [Mass/Vol] 2.9 g/dL Critically low 3.4-5.0 [facility] Comment on above: Performed By: #### C MP ####[facility] X[address]plwluho[address] [place] [address]Dr. Farhat Leal Albumin/Globulin [Mass ratio] 0.9 {ratio} Normal [facility] Comment on above: Performed By: #### C MP ####[facility] Pgmmwbsnvq10[address] [place], [place] [address]Dr. Madelynlorri Leal ALP [Catalytic activity/Vol] 70 U/L Normal 46-116 [facility] Comment on above: Performed By: #### C MP ####[facility] Lcnrdbbaqq124[address] [place], [place] [address]Dr. Farhat Leal ALT [Catalytic activity/Vol] 13 U/L Critically low 16-63 [facility] Comment on above: Performed By: #### C MP ####[facility] Kdhwtyiarl9[address] [place] [address]Dr. Madelynlorri Elvis Anion gap [Moles/Vol] 14.6 mmol/L Normal Th [facility] Comment on above: Performed By: #### C MP ####[facility] Sarvontajd4[address] [place] [address]Dr. Farhat Elvis AST [Catalytic activity/Vol] 17 U/L Normal 15-37 [facility] Comment on above: Performed By: #### C MP ####[facility] Joeazamhly048[address] [place], [place] [address]Dr. Farhat Leal Bilirubin [Mass/Vol] 0.8 mg/dL Normal 0.2-1.0 [facility] Comment on above: Performed By: #### C MP ####[facility] Mddhvibmqe[address] [place], [place] [address]Dr. Farhat Leal Calcium [Mass/Vol] 8.9 mg/dL Normal 8.5-10.1 [facility] Comment on above: Performed By: #### C MP ####[facility] Pukiacsqnr60[address] [place], [place] [address]Dr. Farhat Leal Chloride [Moles/Vol] 102 mmol/L Normal 98-107 [facility] Comment on above: Performed By: #### C MP ####[facility] Ejygmoqpoc814[address] [place], [place] [address]Dr. Farhat Leal CO2 [Moles/Vol] 22.9 mmol/L Normal 21.0-32.0 [facility] Comment on above: Performed By: #### C MP ####[facility] Xvkizmxzgm0964[address] [place], [place] [address]Dr. Farhat Leal Creatinine [Mass/Vol] 1.20 mg/dL Normal 0.70-1.30 [facility] Comment on above: Performed By: #### C MP ####[facility] Qojmnhmnwz6926[address] [place], [place] [address]Dr. Farhat Leal EGFR-AF EMIRATI >60 Normal >=60 [facility] Comment on above: Performed By: #### C MP ####[facility] Xvzlzyjkms7[address] [place] [id number]. Farhat Elvis EGFR-NON AF EMIRATI 59 mL/min/1.73m2 Critically low >=60 [facility] Comment on above: Performed By: #### C MP ####[facility] Ixanmzjwnx9722 [place] [id number]. Madelynlorri Elvis Globulin (S) [Mass/Vol] 3.1 g/dL Normal [facility] Comment on above: Performed By: #### C MP ####[facility] Qgzqmddehn3438 [place] [phone]. Madelynlorri Elvis Glucose [Mass/Vol] 447 mg/dL Critically high 74-106 [facility] Comment on above: Performed By: #### C MP ####[facility] Jjlglurzgp9198 [place] [id number]. Farhat Leal Potassium [Moles/Vol] 4.5 mmol/L Normal 3.5-5.1 [facility] Comment on above: Performed By: #### C MP ####[facility] Lwndslkdpv270[address] [place], [place] [address]Dr. Farhat Elvis Protein [Mass/Vol] 6.0 g/dL Critically low 6.4-8.2 [facility] Comment on above: Performed By: #### C MP ####[facility] Obtxeajgbb[address] [place], [place] [address]Dr. Madelynlorri Elvis Sodium [Moles/Vol] 135 mmol/L Critically low 136-145 [facility] Comment on above: Performed By: #### C MP ####[facility] [address]bww[address] [place], [place] [id number]. Farhat Leal Urea nitrogen [Mass/Vol] 52.0 mg/dL Critically high 7.0-18.0 [facility] Comment on above: Performed By: #### C MP ####[facility] E[address]ozbkyhb[address] [place], [place] [address]Dr. Farhat Leal Urea nitrogen/Creatinine [Mass ratio] 43.3 mg/mg Normal [facility] Comment on above: Performed By: #### C MP ####[facility] Ypsmwbcgyv[address] [place], [place] [address]Dr. Farhat Leal PROTIMEon 05-06-2022 INR Coag (PPP) [Relative time] 2.25 {INR} Normal [facility] Comment on above: Performed By: #### P T ####[facility] Gcqyljqmqg365[address] [place], [place] [address]Dr. Farhat Leal INR GUIDELINES SEE BELOW Normal [facility] Comment on above: Result Comment: MALINA RED INR: 2.0 - 3.0 CONDITIONS NOT LISTED BELOW 2.5 - 3.5 FOR PROSTHETIC HEART VALVE REPLACEMENT 2.5 - 3.5 RECURRENT THROMBOSIS Performed By: #### P T ####[facility] Dukucvwalx264[address] [place], [place] [address]Dr. Farhat Leal PT Coag (PPP) [Time] 22.8 s Critically high 9.0-11.6 [facility] Comment on above: Performed By: #### P T ####[facility] Flscbgulba9816[address] [place], [place] [address]Dr. Farhat Leal FK506 (TACROLIMUS) WHOLE BLO ODon 05-04-2022 Tacrolimus (FK506), Blood 10.4 ng/mL Normal 2.0-20.0 [facility] Comment on above: Result Comment: Trou gh (immediately following transplant) 15.0 . Trough (steady state, 2 weeks or more after transplant): 3.0 - 8.0 . Performed by LC-MS/MS technology. Performed By: #### F K506T ####[facility] Ijnyesctuu[address] [place], [place] [address]Dr. Farhat Leal CBC AUTO DIFFon 05-01-2022 BASO # 0.1 103/ul Normal 0.0-0.1 [facility] Comment on above: Performed By: #### C BC ####[facility] Fzmlotwrxt25[address] [place], [place] [address]DrSkylar Leal Basophils/100 WBC (Bld) 0.7 % Normal 0.2-2.0 [facility] Comment on above: Performed By: #### C BC ####[facility] [address]qwlihxy[address] [place] [address]Dr. Farhat Leal EO # 0.2 103/ul Normal 0.0-0.7 [facility] Comment on above: Performed By: #### C BC ####[facility] Wehlujjhtq39[address] [place] [address]Dr. Farhat Leal Eosinophils/100 WBC (Bld) 3.2 % Normal 0.9-7.0 [facility] Comment on above: Performed By: #### C BC ####[facility] Hetpjlndcm88[address] [place], [place] [address]Dr. Farhat Leal Erythrocyte distribution width (RBC) [Ratio] 16.4 % Critically high 11.0-15.0 [facility] Comment on above: Performed By: #### C BC ####[facility] Eirptjgpwk32[address] [place], [place] [address]Dr. Farhat Leal Hematocrit (Bld) [Volume fraction] 35.1 % Critically low 42.0-54.0 [facility] Comment on above: Performed By: #### C BC ####[facility] Rsdtixcgdb[address] [place], [place] [address]Dr. Farhat Leal Hemoglobin (Bld) [Mass/Vol] 11.6 g/dL Critically low 14.0-18.0 [facility] Comment on above: Performed By: #### C BC ####[facility] Ujtzdondtp50[address] [place], [place] [address]Dr. Farhat Leal IG # 0.03 10e3/ul Normal 0.00-0.03 [facility] Comment on above: Performed By: #### C BC ####[facility] Foqykomviw[address] [place], [place] [address]Dr. Farhat Leal IG % 0.4 % Normal 0.0-0.5 [facility] Comment on above: Performed By: #### C BC ####[facility] Knmccacaqx85[address] [place], [place] [address]Dr. Madelynlorri Leal LYMPH # 2.4 103/ul Normal 1.2-3.8 [facility] Comment on above: Performed By: #### C BC ####[facility] Ckmywoqble58[address] [place] [id number]. Madelynlorri Leal Lymphocytes/100 WBC (Bld) 35.1 % Normal 20.5-60.0 [facility] Comment on above: Performed By: #### C BC ####[facility] Vzxunjmxwd1503 [place] [id number]. Farhat Leal MANUAL DIFF REQ NO Normal [facility] Comment on above: Performed By: #### C BC ####[facility] Drwmtikjwp1203 [place] [phone]. Farhat Leal MCH (RBC) [Entitic mass] 29.4 pg Normal 25.9-34.0 [facility] Comment on above: Performed By: #### C BC ####[facility] Hccrogaekw0731 [place] [id number]. Farhat Leal MCHC (RBC) [Mass/Vol] 33.0 g/dL Normal 29.9-35.2 [facility] Comment on above: Performed By: #### C BC ####[facility] Poasgvusdt2083 [place] [phone]. Farhat Leal MCV (RBC) [Entitic vol] 88.9 fL Normal 80.0-94.0 [facility] Comment on above: Performed By: #### C BC ####[facility] Vghdcvfagq1537 [place] [id number]. Farhat Leal MONO # 0.7 103/ul Normal 0.3-0.8 [facility] Comment on above: Performed By: #### C BC ####[facility] Iwjpatahvy9337 [place] [phone]. Farhat Leal Monocytes/100 WBC (Bld) 9.6 % Normal 1.7-12.0 [facility] Comment on above: Performed By: #### C BC ####[facility] Pawewpzarp4330 [place] [phone]. Farhat Leal NEUT # 3.5 103/ul Normal 1.4-6.5 [facility] Comment on above: Performed By: #### C BC ####[facility] Scbyvwvbii4945 [place] [phone]. Farhat Elvis Neutrophils/100 WBC (Bld) 51.0 % Normal 43.0-75.0 [facility] Comment on above: Performed By: #### C BC ####[facility] Aqjjhkmyol2327 [place] [phone]. Farhat Elvis Platelet mean volume (Bld) [Entitic vol] 10.3 fL Normal 9.5-13.5 [facility] Comment on above: Performed By: #### C BC ####[facility] Afvtqguhmh5831 [place] [phone]. Farhat Leal PLT 184 103/ul Normal 150-450 [facility] Comment on above: Performed By: #### C BC ####[facility] Bxbsnnnnoh1625 [place] [phone]. Farhat Leal RBC 3.95 106/ul Critically low 4.70-6.10 [facility] Comment on above: Performed By: #### C BC ####[facility] Lxfyrskynu3228 [place] [phone]. Farhat Leal WBC 7.0 103/ul Normal 4.0-11.0 [facility] Comment on above: Performed By: #### C BC ####[facility] Cthtrrxcds6851 [place] [id number] Leal PROF 14(COMP METB)on 023 Albumin [Mass/Vol] 2.6 g/dL Critically low 3.4-5.0 [facility] Comment on above: Performed By: #### C MP ####[facility] Eqampfmjoq7140 [place] [phone] Leal Albumin/Globulin [Mass ratio] 0.9 {ratio} Normal [facility] Comment on above: Performed By: #### C MP ####[facility] Zukbsarfxp5502 [place] [id number] Leal ALP [Catalytic activity/Vol] 53 U/L Normal 46-116 [facility] Comment on above: Performed By: #### C MP ####[facility] Veguprrael2671 [place] [phone]. Farhat Elvis ALT [Catalytic activity/Vol] 17 U/L Normal 16-63 [facility] Comment on above: Performed By: #### C MP ####[facility] Nbsckujcqq2512 [place] [id number]. Farhat Elvis Anion gap [Moles/Vol] 10.0 mmol/L Normal [facility] Comment on above: Performed By: #### C MP ####[facility] Sultocyxak2591 [place] [phone]. Farhat Elvis AST [Catalytic activity/Vol] 19 U/L Normal 15-37 [facility] Comment on above: Performed By: #### C MP ####[facility] Zcaknbzrul6799 [place] [address]Dr. Farhat Leal Bilirubin [Mass/Vol] 0.5 mg/dL Normal 0.2-1.0 [facility] Comment on above: Performed By: #### C MP ####[facility] Sqqwivicnf6650 [place] [phone]. Farhat Elvis Calcium [Mass/Vol] 8.4 mg/dL Critically low 8.5-10.1 [facility] Comment on above: Performed By: #### C MP ####[facility] Atddylvhlv28[address] [place] [address]Dr. Farhat Leal Chloride [Moles/Vol] 108 mmol/L Critically high 98-107 [facility] Comment on above: Performed By: #### C MP ####[facility] Aitwjirkbw1015 [place] [phone]. Farhat Leal CO2 [Moles/Vol] 26.9 mmol/L Normal 21.0-32.0 [facility] Comment on above: Performed By: #### C MP ####[facility] Kasxbqanqz032[address] [place] [address]Dr. Farhat Leal Creatinine [Mass/Vol] 1.20 mg/dL Normal 0.70-1.30 [facility] Comment on above: Performed By: #### C MP ####[facility] Jxbfuqlukm4481 [place] [phone]. Farhat Leal EGFR-AF EMIRATI >60 Normal >=60 [facility] Comment on above: Performed By: #### C MP ####[facility] Xajbmsoyyg0665 [place], [place] [address]Qd. Farhat Elvis EGFR-NON AF EMIRATI 59 mL/min/1.73m2 Critically low >=60 [facility] Comment on above: Performed By: #### C MP ####[facility] Zjbzaoxygb1658 [place] [phone]. Farhat Elvis Globulin (S) [Mass/Vol] 3.0 g/dL Normal [facility] Comment on above: Performed By: #### C MP ####[facility] Hsnsdqtobj08[address] [place] [address]Dr. Madelynlorri Elvis Glucose [Mass/Vol] 213 mg/dL Critically high 74-106 [facility] Comment on above: Performed By: #### C MP ####[facility] Lbhakxrfbi8583 [place] [phone]. Farhat Elvis Potassium [Moles/Vol] 3.9 mmol/L Normal 3.5-5.1 [facility] Comment on above: Performed By: #### C MP ####[facility] Edrswdubzn4096 [place] [phone]. Madelynlorri Elvis Protein [Mass/Vol] 5.6 g/dL Critically low 6.4-8.2 [facility] Comment on above: Performed By: #### C MP ####[facility] Rzijbpdqdo6484 [place] [phone]. Madelnylorri Leal Sodium [Moles/Vol] 141 mmol/L Normal 136-145 [facility] Comment on above: Performed By: #### C MP ####[facility] Hvxvyqwgph3851 [place] [phone]. Farhat Elvis Urea nitrogen [Mass/Vol] 61.0 mg/dL Critically high 7.0-18.0 [facility] Comment on above: Performed By: #### C MP ####[facility] [address]fdhrvtcrn[address] [place], [place] [address]Dr. Madelynlorri Leal Urea nitrogen/Creatinine [Mass ratio] 50.8 mg/mg Normal [facility] Comment on above: Performed By: #### C MP ####[facility] Rtnxssvexl[address] [place], [place] [address]Dr. Farhat Leal FK506 (TACROLIMUS) WHOLE BLO ODon 04-27-2022 Tacrolimus (FK506), Blood 16.5 ng/mL Normal 2.0-20.0 [facility] Comment on above: Result Comment: Trou gh (immediately following transplant) 15.0 . Trough (steady state, 2 weeks or more after transplant): 3.0 - 8.0 . Performed by LC-MS/MS technology. Performed By: #### F K506T ####[facility] Ydtlvlxqyl[address] [place], [place] [address]Dr. Farhat Elvis CBC AUTO DIFFon 04-24-2022 BASO # 0.0 103/ul Normal 0.0-0.1 [facility] Comment on above: Performed By: #### C BC ####[facility] Wvtyqiuxyi[address] [place], [place] [address]Dr. Farhat Leal Basophils/100 WBC (Bld) 0.5 % Normal 0.2-2.0 [facility] Comment on above: Performed By: #### C BC ####[facility] Ejmrzbbeqs[address] [place], [place] [address]Dr. Madelynlorri Elvis EO # 0.2 103/ul Normal 0.0-0.7 [facility] Comment on above: Performed By: #### C BC ####[facility] Ofbejcoqsb[address] [place], [place] [address]Dr. Farhat Leal Eosinophils/100 WBC (Bld) 3.1 % Normal 0.9-7.0 [facility] Comment on above: Performed By: #### C BC ####[facility] Nrdjkgtqka[address] [place], [place] [address]Dr. Farhat Leal Erythrocyte distribution width (RBC) [Ratio] 16.3 % Critically high 11.0-15.0 [facility] Comment on above: Performed By: #### C BC ####[facility] [address] [place] [address]Dr. Farhat Leal Hematocrit (Bld) [Volume fraction] 34.0 % Critically low 42.0-54.0 [facility] Comment on above: Performed By: #### C BC ####[facility] L[address]dfqpeq54[address] [place] [address]Dr. Madelynlorri Elvis Hemoglobin (Bld) [Mass/Vol] 11.6 g/dL Critically low 14.0-18.0 [facility] Comment on above: Performed By: #### C BC ####[facility] Yrzyilewvv[address] [place], [place] [address]Dr. Farhat Leal IG # 0.02 10e3/ul Normal 0.00-0.03 [facility] Comment on above: Performed By: #### C BC ####[facility] Yikezyelrv[address] [place], [place] [address]Dr. Farhat Leal IG % 0.4 % Normal 0.0-0.5 [facility] Comment on above: Performed By: #### C BC ####[facility] Tqeiuowtff[address] [place], [place] [address]DrSkylar Madelynlorri Leal LYMPH # 2.2 103/ul Normal 1.2-3.8 [facility] Comment on above: Performed By: #### C BC ####[facility] Zmotrfvwem[address] [place], [place] [address]DrSkylar Leal Lymphocytes/100 WBC (Bld) 38.8 % Normal 20.5-60.0 [facility] Comment on above: Performed By: #### C BC ####[facility] Dnosdrdimd10[address] [place], [place] [address]DrSkylar Leal MANUAL DIFF REQ NO Normal [facility] Comment on above: Performed By: #### C BC ####[facility] Fumugigofr[address] [place], [place] [address]DrSkylar Leal MCH (RBC) [Entitic mass] 30.1 pg Normal 25.9-34.0 [facility] Comment on above: Performed By: #### C BC ####[facility] [address]ts[address] [place] [id number]. Farhat Elvis MCHC (RBC) [Mass/Vol] 34.1 g/dL Normal 29.9-35.2 [facility] Comment on above: Performed By: #### C BC ####[facility] Vfqcczubnv1067 [place] [id number] Leal MCV (RBC) [Entitic vol] 88.1 fL Normal 80.0-94.0 [facility] Comment on above: Performed By: #### C BC ####[facility] Nwcdkeidwf[address] [place], [place] [address]DrSkylar Leal MONO # 0.6 103/ul Normal 0.3-0.8 [facility] Comment on above: Performed By: #### C BC ####[facility] Rbzziodhgw[address] [place], [place] [address]Dr. Farhat Leal Monocytes/100 WBC (Bld) 10.8 % Normal 1.7-12.0 [facility] Comment on above: Performed By: #### C BC ####[facility] Sdiugkvihg[address] [place], [place] [address]Dr. Farhat Leal NEUT # 2.6 103/ul Normal 1.4-6.5 [facility] Comment on above: Performed By: #### C BC ####[facility] Dwicolfese[address] [place], [place] [address]DrSkylar Leal Neutrophils/100 WBC (Bld) 46.4 % Normal 43.0-75.0 [facility] Comment on above: Performed By: #### C BC ####[facility] Xnkukzgfsy[address] [place], [place] [id number] eLal Platelet mean volume (Bld) [Entitic vol] 10.9 fL Normal 9.5-13.5 [facility] Comment on above: Performed By: #### C BC ####[facility] Btyekqltni[address] [place], [place] [id number] Leal PLT 159 103/ul Normal 150-450 [facility] Comment on above: Performed By: #### C BC ####[facility] Ahnakzfszz[address] [place] [address]Dr. Madelynlorri Elvis RBC 3.86 106/ul Critically low 4.70-6.10 [facility] Comment on above: Performed By: #### C BC ####[facility] Wvzjsffqda9[address] [place] [address]Dr. Farhat Leal WBC 5.6 103/ul Normal 4.0-11.0 [facility] Comment on above: Performed By: #### C BC ####[facility] Afzuceoafh[address] [place] [address]Dr. Farhat Leal PROTIMEon 04-24-2022 INR Coag (PPP) [Relative time] 3.23 {INR} Normal [facility] Comment on above: Performed By: #### P T ####[facility] [address]cowtwoh[address] [place], [place] [address]Dr. Farhat Leal INR GUIDELINES SEE BELOW Normal [facility] Comment on above: Result Comment: MALINA RED INR: 2.0 - 3.0 CONDITIONS NOT LISTED BELOW 2.5 - 3.5 FOR PROSTHETIC HEART VALVE REPLACEMENT 2.5 - 3.5 RECURRENT THROMBOSIS Performed By: #### P T ####[facility] Hbudwjoxzx[address] [place], [place] [address]Dr. Farhat Leal PT Coag (PPP) [Time] 32.0 s Critically high 9.0-11.6 [facility] Comment on above: Performed By: #### P T ####[facility] Jtdrwlwgqy[address] [place], [place] [address]Dr. Farhat Leal FK506 (TACROLIMUS) WHOLE BLO ODon 04-20-2022 Tacrolimus (FK506), Blood 13.9 ng/mL Normal 2.0-20.0 [facility] Comment on above: Result Comment: Trou gh (immediately following transplant) 15.0 . Trough (steady state, 2 weeks or more after transplant): 3.0 - 8.0 . Performed by LC-MS/MS technology. Performed By: #### F K506T ####[facility] Ceyqinwvph[address] [place], [place] [address]Dr. Farhat Leal CBC AUTO DIFFon 04-17-2022 BASO # 0.0 103/ul Normal 0.0-0.1 [facility] Comment on above: Performed By: #### C BC ####[facility] Zhxiwwueml[address] [place] [address]Dr. Farhat Leal Basophils/100 WBC (Bld) 0.4 % Normal 0.2-2.0 [facility] Comment on above: Performed By: #### C BC ####[facility] Ycxdmfzpet6[address] [place] [address]Dr. Farhat Leal EO # 0.2 103/ul Normal 0.0-0.7 [facility] Comment on above: Performed By: #### C BC ####[facility] Kxpbtrjfgf1766 [place] [address]Dr. Farhat Leal Eosinophils/100 WBC (Bld) 2.8 % Normal 0.9-7.0 [facility] Comment on above: Performed By: #### C BC ####[facility] Lqxmrajyta19[address] [place] [address]Dr. Farhat Leal Erythrocyte distribution width (RBC) [Ratio] 16.1 % Critically high 11.0-15.0 [facility] Comment on above: Performed By: #### C BC ####[facility] Jbhjtmdzui94[address] [place] [address]Dr. Farhat Leal Hematocrit (Bld) [Volume fraction] 35.7 % Critically low 42.0-54.0 [facility] Comment on above: Performed By: #### C BC ####[facility] Thlvdgybwh47[address] [place] [address]Dr. Farhat Leal Hemoglobin (Bld) [Mass/Vol] 12.2 g/dL Critically low 14.0-18.0 [facility] Comment on above: Performed By: #### C BC ####[facility] Cqdqmnbftt[address] [place] [address]Dr. Farhat Elvis IG # 0.03 10e3/ul Normal 0.00-0.03 [facility] Comment on above: Performed By: #### C BC ####[facility] Z[address]xjcntg1605 [place] [id number]. Farhat Leal IG % 0.4 % Normal 0.0-0.5 [facility] Comment on above: Performed By: #### C BC ####[facility] Sfzgzeoyyy0742 [place] [phone]. Farhat Leal LYMPH # 2.4 103/ul Normal 1.2-3.8 [facility] Comment on above: Performed By: #### C BC ####[facility] Vuqglydxiy9950 [place] [phone]. Farhat Leal Lymphocytes/100 WBC (Bld) 36.1 % Normal 20.5-60.0 [facility] Comment on above: Performed By: #### C BC ####[facility] Rnvufsaljh8414 [place] [phone]. Farhat Leal MANUAL DIFF REQ NO Normal [facility] Comment on above: Performed By: #### C BC ####[facility] Logrqxbpwq5099 [place] [phone]. Farhat Leal MCH (RBC) [Entitic mass] 30.3 pg Normal 25.9-34.0 [facility] Comment on above: Performed By: #### C BC ####[facility] Lzyjgeakbg1595 [place] [phone]. Farhat Leal MCHC (RBC) [Mass/Vol] 34.2 g/dL Normal 29.9-35.2 [facility] Comment on above: Performed By: #### C BC ####[facility] Dlibpptrgl1224 [place] [phone]. Farhat Leal MCV (RBC) [Entitic vol] 88.6 fL Normal 80.0-94.0 [facility] Comment on above: Performed By: #### C BC ####[facility] Ygkorbxrvu7330 [place] [id number]. Farhat Leal MONO # 0.7 103/ul Normal 0.3-0.8 [facility] Comment on above: Performed By: #### C BC ####[facility] Nvvgyxzzdq6951 [place] [phone]. Farhat Leal Monocytes/100 WBC (Bld) 10.1 % Normal 1.7-12.0 [facility] Comment on above: Performed By: #### C BC ####[facility] Zvwgjtgpvm2938 [place] [phone]. Farhat Leal NEUT # 3.4 103/ul Normal 1.4-6.5 [facility] Comment on above: Performed By: #### C BC ####[facility] Zvxqghjabr8752 [place] [phone]. Farhat Leal Neutrophils/100 WBC (Bld) 50.2 % Normal 43.0-75.0 [facility] Comment on above: Performed By: #### C BC ####[facility] Dilcafnsgz3212 [place] [phone]. Farhat Leal Platelet mean volume (Bld) [Entitic vol] 11.8 fL Normal 9.5-13.5 [facility] Comment on above: Performed By: #### C BC ####[facility] Dcyvaphrgs9381 [place] [phone]. Farhat Leal PLT 193 103/ul Normal 150-450 [facility] Comment on above: Performed By: #### C BC ####[facility] Jczkpcnwis6784 [place] [phone]. Farhat Leal RBC 4.03 106/ul Critically low 4.70-6.10 [facility] Comment on above: Performed By: #### C BC ####[facility] Lpjovvbxpl0789 [place] [phone]. Farhat Leal WBC 6.8 103/ul Normal 4.0-11.0 [facility] Comment on above: Performed By: #### C BC ####[facility] Rwgdpvzizt6416 [place] [address]Dr. Madelynlorri Leal PROF 14(COMP METB)on 023 Albumin [Mass/Vol] 2.9 g/dL Critically low 3.4-5.0 [facility] Comment on above: Performed By: #### C MP ####[facility] Ptejojobvd5658 [place] [phone]. Farhat Leal Albumin/Globulin [Mass ratio] 0.9 {ratio} Normal [facility] Comment on above: Performed By: #### C MP ####[facility] Rrqtqjxcot5215 [place] [phone]. Farhat Leal ALP [Catalytic activity/Vol] 67 U/L Normal 46-116 [facility] Comment on above: Performed By: #### C MP ####[facility] Retnyxdxqa2154 [place] [address]Dr. Farhat Elvis ALT [Catalytic activity/Vol] 15 U/L Critically low 16-63 [facility] Comment on above: Performed By: #### C MP ####[facility] Jiqqityvtp[address] [place], [place] [address]Dr. Farhat Elvis Anion gap [Moles/Vol] 10.8 mmol/L Normal [facility] Comment on above: Performed By: #### C MP ####[facility] Sszvuuxvuy[address] [place], [place] [address]Dr. Farhat Elvis AST [Catalytic activity/Vol] 23 U/L Normal 15-37 [facility] Comment on above: Performed By: #### C MP ####[facility] Zqjticcjsf[address] [place], [place] [address]Dr. Farhat Elvis Bilirubin [Mass/Vol] 0.6 mg/dL Normal 0.2-1.0 [facility] Comment on above: Performed By: #### C MP ####[facility] Mrltdtdeqa3157 [place] [address]Dr. Farhat Elvis Calcium [Mass/Vol] 8.7 mg/dL Normal 8.5-10.1 [facility] Comment on above: Performed By: #### C MP ####[facility] Blzqqtjrqg[address] [place], [place] [address]Dr. Farhat Leal Chloride [Moles/Vol] 105 mmol/L Normal 98-107 [facility] Comment on above: Performed By: #### C MP ####[facility] Naxbrwygcv7601 [place] [address]Dr. Farhat Elvis CO2 [Moles/Vol] 29.5 mmol/L Normal 21.0-32.0 [facility] Comment on above: Performed By: #### C MP ####[facility] Bdglftbyuw5468 [place] [address]Dr. Farhat Elvis Creatinine [Mass/Vol] 1.37 mg/dL Critically high 0.70-1.30 [facility] Comment on above: Performed By: #### C MP ####[facility] Odehjqghdk[address] [place], [place] [address]Dr. Farhat Elvis EGFR-AF EMIRATI >60 Normal >=60 [facility] Comment on above: Performed By: #### C MP ####[facility] Wtdmqwsdbq347[address] [place], [place] [address]Dr. Farhat Leal EGFR-NON AF EMIRATI 50 mL/min/1.73m2 Critically low >=60 [facility] Comment on above: Performed By: #### C MP ####[facility] Jdvdtznxjq223[address] [place], [place] [address]Dr. Madelynlorri Leal Globulin (S) [Mass/Vol] 3.1 g/dL Normal [facility] Comment on above: Performed By: #### C MP ####[facility] Dzwanllims[address] [place], [place] [address]Dr. Farhat Leal Glucose [Mass/Vol] 203 mg/dL Critically high 74-106 [facility] Comment on above: Performed By: #### C MP ####[facility] Afueafhtij[address] [place], [place] [address]Dr. Madelynlorri Leal Potassium [Moles/Vol] 4.3 mmol/L Normal 3.5-5.1 [facility] Comment on above: Performed By: #### C MP ####[facility] Phtqsyzgve[address] [place], [place] [address]Dr. Farhat Leal Protein [Mass/Vol] 6.0 g/dL Critically low 6.4-8.2 [facility] e [facility] Comment on above: Performed By: #### C MP ####[facility] [address]esve[address] [place], [place] [address]Dr. Farhat Leal Sodium [Moles/Vol] 141 mmol/L Normal 136-145 [facility] Comment on above: Performed By: #### C MP ####[facility] Korkryglzu15[address] [place] [address]Dr. Farhat Leal Urea nitrogen [Mass/Vol] 65.0 mg/dL Critically high 7.0-18.0 [facility] Comment on above: Performed By: #### C MP ####[facility] Fkanybimfy5[address] [place] [address]Dr. Farhat Leal Urea nitrogen/Creatinine [Mass ratio] 47.4 mg/mg Normal [facility] Comment on above: Performed By: #### C MP ####[facility] Tkuknsfkjm55[address] [place] [address]Dr. Farhat Leal PROTIMEon 04-15-2022 INR Coag (PPP) [Relative time] 3.88 {INR} Normal [facility] Comment on above: Performed By: #### P T ####[facility] Qbvyjnochf33[address] [place] [address]Dr. Farhat Leal INR GUIDELINES SEE BELOW Normal [facility] Comment on above: Result Comment: MALINA RED INR: 2.0 - 3.0 CONDITIONS NOT LISTED BELOW 2.5 - 3.5 FOR PROSTHETIC HEART VALVE REPLACEMENT 2.5 - 3.5 RECURRENT THROMBOSIS Performed By: #### P T ####[facility] Ovrufxswvc[address] [place], [place] [address]Dr. Farhat Leal PT Coag (PPP) [Time] 38.1 s Critically high 9.0-11.6 [facility] Comment on above: Performed By: #### P T ####[facility] Wntamtrwjb[address] [place], [place] [address]Dr. Farhat Leal Glucose Glucometer (BldC) [M ass/Vol]Ordered By: Sadia Aguilar on 04-14-2022 Glucose [Mass/Vol] 162 mg/dL [facility] Comment on above: Random Glucose Refer ence Range is dependent on time and content of last meal. Glucose of more than 200 mg/dL in a nonstressed, ambulatory subject supports the diagnosis of Diabetes Mellitus. Glucose Poct Glucometerson 0 04-14-2022 Commemt1 Glu2: Cleaned Meter Normal [facility] Comment on above: Result Comment: PERF ORMED BY: [facility] [place] [address] PATHOLOGIST NURSERY RN JOSE F ELLIOTT M.D. Performed By: #### G LULS #### Point of Care testing , Glucose [Mass/Vol] 162 mg/dL Normal [facility] Comment on above: Result Comment: [facility] Glucose Reference Range is dependent on time and content of last meal. Glucose of more than 200 mg/dL in a nonstressed, ambulatory subject supports the diagnosis of Diabetes Mellitus. Performed By: #### G LULS #### Point of Care testing , No Panel InformationOrdered By: Sadia Aguilar on 04-14-2022 Bedside Glucose Comment Glu2: cleaned meter [facility] MAGNESIUMon 04-13-2022 Magnesium [Mass/Vol] 1.7 mg/dL Critically low 1.8-2.4 [facility] Comment on above: Performed By: #### M Anais PHOS ####[facility] [address]oypfxses[address] [place] [address]Dr. Farhat Leal PHOSPHORUSon 04-13-2022 Phosphate [Mass/Vol] 4.8 mg/dL Critically high 2.6-4.7 [facility] Comment on above: Performed By: #### M Anais PHOS ####[facility] Yfskugsont1725 [place] [id number]. Farhat Leal PROTIMEon 04-13-2022 INR Coag (PPP) [Relative time] 3.16 {INR} Normal [facility] Comment on above: Performed By: #### P T ####[facility] Ahnrivntxq[address] [place] [address]Dr. Farhat Leal INR GUIDELINES SEE BELOW Normal [facility] Comment on above: Result Comment: MALINA RED INR: 2.0 - 3.0 CONDITIONS NOT LISTED BELOW 2.5 - 3.5 FOR PROSTHETIC HEART VALVE REPLACEMENT 2.5 - 3.5 RECURRENT THROMBOSIS Performed By: #### P T ####[facility] Xtwgaejurs60[address] [place] [address]Dr. Farhat Leal PT Coag (PPP) [Time] 31.4 s Critically high 9.0-11.6 [facility] Comment on above: Performed By: #### P T ####[facility] Cwwuifbztt8742 [place] [address]Dr. Farhat Leal MAGNESIUMon 03-11-2022 Magnesium [Mass/Vol] 1.6 mg/dL Critically low 1.8-2.4 [facility] Comment on above: Performed By: #### M G, PHOS ####[facility] Xpchucfbgh7355 [place] [address]Dr. Farhat Leal PHOSPHORUSon 03-11-2022 Phosphate [Mass/Vol] 5.3 mg/dL Critically high 2.6-4.7 [facility] Comment on above: Performed By: #### M Anais, PHOS ####[facility] [address]izhixph[address] [place], [place] [address]Dr. 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 Magic Cup [place] with lunch aspirin, enteric coated (ASPIRIN, ENTERIC COATED) 81 mg EC tablet Take 1 tablet by (more content not included)... [facility] 02-25-2022 INR Coag (PPP) [Relative time] 1.31 {INR} Normal [facility] Comment on above: Performed By: #### P T ####[facility] Rshikhonym7151 [place] [id number] Leal INR GUIDELINES SEE BELOW Normal [facility] Comment on above: Result Comment: MALINA RED INR: 2.0 - 3.0 CONDITIONS NOT LISTED BELOW 2.5 - 3.5 FOR PROSTHETIC HEART VALVE REPLACEMENT 2.5 - 3.5 RECURRENT THROMBOSIS Performed By: #### P T ####[facility] Z[address]ynuhvxvp15[address] [place] [address]DrSkylar Leal PT Coag (PPP) [Time] 13.7 s Critically high 9.0-11.6 [facility] Comment on above: Performed By: #### P T ####[facility] Qnrevvzape4[address] [place] [address]DrSkylar Leal CNPRosalie 02-19-2022 CNPN Telephone (TXCTGL) ALEX ALMONTE ([id number]) 1945 M TRN Date Time Provider Department [...] by mouth daily with lunch. 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/2002 DIABETES UNCOMPL ADULT-UNCONTRLLED [[id number]] 02/24/2002 KIDNEY TRANSPLANT STATUS [Z94.0] 09/07/2003 PROPHYLACTIC IMMUNOTHERAPY [Z29.8] 07/30/2006 [facility] STEROIDS [[id number]] 07/30/2006 VITAMIN D DEFICIENCY NOS [E55.9] 09/07/2008 [...] perfusion [R09.89] 09/30/2021 PAD (peripheral artery disease) ([facility]) [I73.9] 09/26/2021 Osteomyelitis ([facility]) [M86.9] 11/29/2021 Class 1 obesity due to excess calories with ser*11/29/2021 Mixed hyperlipidemia due to type 2 diabetes myles*11/29/2021 Type 2 diabetes mellitus with diabetic peripher*11/29/2021 Atherosclerosis of [place] artery of extremity w*11/29/2021 Malnutrition of moderate degree ([facility]) [E44.0] 12/01/2021 Dermatitis associated with moisture [L30.8] 12/04/2021 Encounter Status:Closed by AUGUSTA MEDRANO on 02/19/22 [facility] Sonya 02-18-2022 CNPN Telephone (PODCCP) ALEX ALMONTE ([id number]) 1945 M TRN Date Time Provider Department 02/18/22 DEVON MOREIRA PODREAL During your visit today, we recorded the following information about you: Yumiko Camelia 02/18/2022 3:16 PM Signed Reason for call: Mr. Almonte would like to request a sooner appointment with Dr. Peterson than 04/13/2022. Contact Name (if not the patient) Alex's nurse Home and cell number(Ask for Alex's nurse) [phone] Diagnosis 4 mo f/u wound check Best [...] by mouth daily with lunch. 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/2002 DIABETES UNCOMPL ADULT-UNCONTRLLED [[id number]] 02/24/2002 KIDNEY TRANSPLANT STATUS [Z94.0] 09/07/2003 PROPHYLACTIC IMMUNOTHERAPY [Z29.8] 07/30/2006 [facility] STEROIDS [[id number]] 07/30/2006 VITAMIN D DEFICIENCY NOS [E55.9] 09/07/2008 [...] perfusion [R09.89] 09/30/2021 PAD (peripheral artery disease) ([facility]) [I73.9] 09/26/2021 Osteomyelitis (HCC) [M86.9] 11/29/2021 Class 1 obesity due to excess calories with ser*11/29/2021 Mixed hyperlipidemia due to type 2 diabetes myles*11/29/2021 Type 2 diabetes mellitus with diabetic peripher*11/29/2021 Atherosclerosis of [place] artery of extremity w*11/29/2021 Malnutrition of moderate degree (HCC) [E44.0] 12/01/2021 Dermatitis associated with moisture [L30.8] 12/04/2021 Encounter Status:Closed by CHEASTY (more content not included)... Normal [facility] CNOVon 02-05-2022 CNOV Office Visit (TXCTGL ) ZEV ALMONTEJESÚS Kate ([id number]) 1945 M TRN Date Time Provider Department 02/05/22 8:20 AM KIDNEY TXP [facility]IN[facility] TXCTGL During your visit today, we recorded the following information about you: Temperature Pulse Blood pressure 96.7 degrees 79/minute 72/42 Asia Pike MD 02/05/2022 9:38 AM Signed [facility] Follow up Portions of this note [...] and snacks patient declined. Indra scale at [facility]: 166.2 lbs per patient. Bed sore on coccyx causing discomfort. Being changed regularly at [facility]- reported to be smaller around but still as deep. Patient not very up to date with medications. Patient brought paperwork from [facility] with all medications being received. Patient unsure if they have been drawing labs regularly. Last Tac from 01/19: 12.9 and K 5.9. In need of current labs. Lab orders will be sent with patient and follows as below: Kidney and Pancreas Transplant Standing Lab Orders [address] [facility] [address] [place], [place] [address] February 05, 2022 Alex Almonte 1945 [id number] STANDARD TESTING: Diagnosis Codes: Z94.0 Kidney Transplant [...] AT YOUR LABORATORY FACILITY AND FAX TO [phone]. PLEASE CALL [phone]. Provider: Dr. Pike Current Outpatient Medications Medication [...] Take 237 (more content not included)... Normal [facility] PROTEIN CREATININE RATIOon 1 04-08-2021 Protein/Creatinine (U) [Mass ratio] 0.10 mg/mg <0.15 mg/mg [facility] PROTIMEon 02-05-2022 INR Coag (PPP) [Relative time] 2.90 {INR} Normal [facility] Comment on above: Performed By: #### P T ####[facility] [address] [place], [place] [address]Ns. Farhat Leal INR GUIDELINES SEE BELOW Normal [facility] Comment on above: Result Comment: MALINA RED INR: 2.0 - 3.0 CONDITIONS NOT LISTED BELOW 2.5 - 3.5 FOR PROSTHETIC HEART VALVE REPLACEMENT 2.5 - 3.5 RECURRENT THROMBOSIS Performed By: #### P T ####[facility] [address] [place], [place] [address]Lc. Farhat Leal PT Coag (PPP) [Time] 29.2 s Critically high 9.0-11.6 [facility] Comment on above: Performed By: #### P T ####[facility] [address] [place] [id number]. Farhat Leal Prot/Creat Uron 02-05-2022 Protein/Creatinine (U) [Mass ratio] 0.10 mg/mg Normal <0.15 [facility] Comment on above: Order Comment: Speci men Type: URINE SPECIMENOrdering Facility: [facility] Address: [address] [place] [address] Result Comment: Adul t Proteinuria Categories: <0.15 mg/mg is considered normal to mildly increased 0.15 - 0.50 mg/mg is considered moderately increased >0.50 mg/mg is considered severely increased KDIGO. (2013). KDIGO 2012 Clinical Practice Guideline for the Evaluation and Management of Chronic Kidney Disease. Official Journal of the International Society of Nephrology, 3(1), 1-150. Performed By: #### 2 890-2 ####[facility] LABCLIA [id number] [place] [address] [place] Protein/Creatinine (U) [Mass ratio]on 02-05-2022 Creatinine (U) [Mass/Vol] 86.9 mg/dL 20.0 - 300.0 mg/dL [facility] Protein (U) [Mass/Vol] 9 mg/dL 0 - 20 mg/dL [facility] Creatinine (U) [Mass/Vol] 86.9 mg/dL Normal 20.0-300.0 [facility] Comment on above: Order Comment: Speci men Type: URINE SPECIMENOrdering Facility: [facility] Address: [address] Performed By: #### 2 890-2 ####[facility] LABCLIA [id number] [place] [address] [place] Protein (U) [Mass/Vol] 9 mg/dL Normal 0-20 Cl [facility] Comment on above: Order Comment: Speci men Type: URINE SPECIMENOrdering Facility: [facility] Address: [address] [address] Performed By: #### 2 890-2 ####[facility] LABIA [id number] [place] [address] [place] URINALYSIS, DIPSTICK ONLYon 02-05-2022 Bilirubin Ql (U) Negative Normal Negative [facility] Comment on above: Order Comment: Speci men Type: URINE SPECIMEN [facility] Address: [address] Performed By: #### U A #### [facility] CLIA [id number] [address] [place] [address] [place] Clarity (Unsp spec) Clear Normal Clear [facility] Comment on above: Order Comment: Speci men Type: URINE SPECIMEN [facility] Address: [address] Performed By: #### U A #### [facility] CLIA [id number] [address] [place] [address] [place] Color (U) Yellow Normal Yellow [facility] Comment on above: Order Comment: Speci men Type: URINE SPECIMEN [facility] Address: [address] Performed By: #### U A #### [facility] CLIA [id number] [address] [place] Glucose Test strip (U) [Mass/Vol] 3+ Abnormal Trace, Negative [facility] Comment on above: Order Comment: Speci men Type: URINE SPECIMEN [facility] Address: [address] [address] Performed By: #### U A #### [facility] CLIA [id number] [address] [place] [address] [place] Hemoglobin Ql (U) Negative Normal Negative, Trace [facility] Comment on above: Order Comment: Speci men Type: URINE SPECIMEN [facility] Address: [address] [address] Performed By: #### U A #### [facility] CLIA [id number] [address] [place] [address] [place] Ketones Ql (U) Trace Normal Negative, Trace [facility] Comment on above: Order Comment: Speci men Type: URINE SPECIMEN [facility] Address: [address] Performed By: #### U A #### [facility] CLIA [id number] [address] [place] [address] [place] Leukocyte esterase Test strip Ql (U) Negative Normal Negative, 25 Loraine/mL [facility] Comment on above: Order Comment: Speci men Type: URINE SPECIMEN [facility] Address: [address] Performed By: #### U A #### [facility] CLIA [id number] [address] [place] [address] [place] Nitrite Ql (U) Negative Normal Negative [facility] Comment on above: Order Comment: Speci men Type: URINE SPECIMEN [facility] Address: [address] [address] Performed By: #### U A #### [facility] CLIA [id number] [address] [place] [address] [place] pH (U) 5.5 [pH] Normal 5.0-8.0 [facility] Comment on above: Order Comment: Speci men Type: URINE SPECIMEN [facility] Address: [address] [place] [address] Performed By: #### U A #### [facility] [place] [id number] [address] [place] [address] [place] Protein (U) [Mass/Vol] Negative Normal Trace , Negative [facility] Comment on above: Order Comment: Speci men Type: URINE SPECIMEN [facility] Address: [address] [place] [address] Performed By: #### U A #### [facility] [place] [id number] [address] [place] [address] [place] Specific gravity (U) [Rel density] 1.014 Normal 1.005-1.030 [facility] Comment on above: Order Comment: Speci men Type: URINE SPECIMEN [facility] Address: [address] [place] [address] Performed By: #### U A #### [facility] IA [id number] [address] [place] [address] [place] Urobilinogen Ql (U) 1+ Abnormal Negative [facility] Comment on above: Order Comment: Speci men Type: URINE SPECIMEN [facility] Address: [address] [place] [address] Performed By: #### U A #### [facility] [place] [id number] [address] [place] [address] [place] Bilirubin Ql (U) Negative Negative [facility] Clarity (Unsp spec) Clear Clear [facility] Color (U) Yellow Yellow [facility] Glucose Test strip (U) [Mass/Vol] 3+ Abnormal Trace, Negative [facility] Hemoglobin Ql (U) Negative Negative, Trace [facility] Ketones Ql (U) Trace Negative, Trace [facility] Leukocyte esterase Test strip Ql (U) Negative Negative, 25 Loraine/mL [facility] Nitrite Ql (U) Negative Negative [facility] pH (U) 5.5 [pH] 5.0 - 8.0 [facility] Protein (U) [Mass/Vol] Negative Trace , Negative [facility] Specific gravity (U) [Rel density] 1.014 1.005 - 1.030 [facility] Urobilinogen Ql (U) 1+ Abnormal Negative [facility] FK506 (TACROLIMUS) WHOLE BLO ODon 01-29-2022 Tacrolimus (FK506), Blood 11.1 ng/mL Normal 2.0-20.0 [facility] Comment on above: Result Comment: Trou gh (immediately following transplant) 15.0 . Trough (steady state, 2 weeks or more after transplant): 3.0 - 8.0 . Performed by LC-MS/MS technology. Performed By: #### F K506T ####[facility] [address] [place], [place] [address]Dr. Farhat Leal PHOSPHORUSon 01-26-2022 Phosphate [Mass/Vol] 4.1 mg/dL Normal 2.6-4.7 [facility] Comment on above: Performed By: #### C HENRI MARROQUIN ####[facility] [address] [place], [place] [address]DrSkylar Leal PROF 14(COMP METB)on 022 Albumin [Mass/Vol] 2.1 g/dL Critically low 3.4-5.0 [facility] Comment on above: Performed By: #### C HENRI MARROQUIN ####[facility] [address] [place] [address]Dr. Farhat Leal Albumin/Globulin [Mass ratio] 0.6 {ratio} Normal [facility] Comment on above: Performed By: #### C HENRI MARROQUIN ####[facility] [address] [place], [place] [address]Dr. Farhat Leal ALP [Catalytic activity/Vol] 89 U/L Normal 46-116 [facility] Comment on above: Performed By: #### C ANA MARROQUINS ####[facility] [address] [place] [address]Dr. Farhat Leal ALT [Catalytic activity/Vol] 27 U/L Normal 16-63 [facility] Comment on above: Performed By: #### C MP, PHOS ####[facility] [address] [place] [address]Dr. Farhat Leal Anion gap [Moles/Vol] 12.3 mmol/L Normal [facility] Comment on above: Performed By: #### C MP, PHOS ####[facility] [address] [place] [address]Dr. Farhat Leal AST [Catalytic activity/Vol] 53 U/L Critically high 15-37 [facility] Comment on above: Performed By: #### C CARA, PHOS ####[facility] [address] [place], [place] [address]Dr. Farhat Leal Bilirubin [Mass/Vol] 0.6 mg/dL Normal 0.2-1.0 [facility] Comment on above: Performed By: #### C CARA, PHOS ####[facility] [address] [place], [place] [address]Dr. Farhat Leal Calcium [Mass/Vol] 8.0 mg/dL Critically low 8.5-10.1 [facility] Comment on above: Performed By: #### C CARA, PHOS ####[facility] [address] [place], [place] [address]Dr. Farhat Leal Chloride [Moles/Vol] 97 mmol/L Critically low 98-107 [facility] Comment on above: Performed By: #### C MP, PHOS ####[facility] [address] [place], [place] [address]Dr. Farhat Leal CO2 [Moles/Vol] 26.6 mmol/L Normal 21.0-32.0 [facility] Comment on above: Performed By: #### C MP, PHOS ####[facility] [address] [place], [place] [address]Dr. Farhat Leal Creatinine [Mass/Vol] 1.03 mg/dL Normal 0.70-1.30 [facility] Comment on above: Performed By: #### C MP, PHOS ####[facility] [address] [place] [address]Dr. Farhat Leal EGFR-AF EMIRATI >60 Normal >=60 [facility] Comment on above: Performed By: #### C MP, PHOS ####[facility] [address] [place] [address]Dr. Farhat Leal EGFR-NON AF EMIRATI >60 Normal >=60 [facility] Comment on above: Performed By: #### C MP, PHOS ####[facility] [address] [place], [place] [address]Dr. Farhat Leal Globulin (S) [Mass/Vol] 3.7 g/dL Normal [facility] Comment on above: Performed By: #### C MP, PHOS ####[facility] [address] [place], [place] [address]Dr. Farhat Leal Glucose [Mass/Vol] 287 mg/dL Critically high 74-106 T [facility] Comment on above: Performed By: #### C CARA, PHOS ####[facility] [address] [place], [place] [address]Dr. Farhat Leal Potassium [Moles/Vol] 3.9 mmol/L Normal 3.5-5.1 [facility] Comment on above: Performed By: #### C MP, PHOS ####[facility] [address] [place], [place] [address]Dr. Farhat Leal Protein [Mass/Vol] 5.8 g/dL Critically low 6.4-8.2 [facility] Comment on above: Performed By: #### C MP, PHOS ####[facility] [address] [place], [place] [address]Dr. Farhat Leal Sodium [Moles/Vol] 132 mmol/L Critically low 136-145 [facility] Comment on above: Performed By: #### C MP, PHOS ####[facility] [address] [place], [place] [address]Dr. Farhat Leal Urea nitrogen [Mass/Vol] 23.0 mg/dL Critically high 7.0-18.0 [facility] Comment on above: Performed By: #### C HENRI MARROQUIN ####[facility] [address] [place] [id number]. Farhat Elvis Urea nitrogen/Creatinine [Mass ratio] 22.3 mg/mg Normal [facility] Comment on above: Performed By: #### C HENRI MARROQUIN ####[facility] [address] [place] [id number]. Farhat Leal FK506 (TACROLIMUS) WHOLE BLO ODon 01-21-2022 Tacrolimus (FK506), Blood 12.2 ng/mL Normal 2.0-20.0 [facility] Comment on above: Result Comment: Trou gh (immediately following transplant) 15.0 . Trough (steady state, 2 weeks or more after transplant): 3.0 - 8.0 . Performed by LC-MS/MS technology. Performed By: #### F K506T ####[facility] [address] [place] [address]Dr. Farhat Leal ACID FAST SMEAR AND CXon Acid Fast Culture Negative Normal [facility] Comment on above: Result Comment: No a abdiel fast bacilli isolated after 6 weeks. Performed By: #### A FB ####[facility] [address] [place] [id number]. Madelynlorri Leal Acid Fast Smear Negative Normal [facility] Comment on above: Performed By: #### A FB ####[facility] [address] [place], [place] [address]Dr. Farhat Leal [employer] Specimen Processing Tissue Grinding Normal [facility] Comment on above: Performed By: #### A FB ####[facility] [address] [place] [id number]. Farhat Hassan 01-20-2022 DIAMANTEN Telephone (KIMBERLY) ALEX ALMONTE ([id number]) 1945 M TRN Date Time Provider Department 01/20/22 VAN OLIVAREZ During your visit today, we recorded the following information about you: Van Olivarez APRN.CNP 01/20/2022 1:14 PM Signed Labs noted from yesterday. Pt is currently residing at [facility], I spoke with the [...] by mouth daily with lunch. 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 Atherosclerosis of [place] artery of extremity w*11/29/2021 Malnutrition of moderate degree (HCC) [E44.0] 12/01/2021 Dermatitis associated with moisture [L30.8] 12/04/2021 Encounter Status:Closed by VAN OLIVAERZ on 01/20/22 [facility](COMP METB)on 022 Albumin [Mass/Vol] 1.9 g/dL Critically low 3.4-5.0 [facility] Comment on above: Performed By: #### C MP ####[facility] [address] [place] [id number] Leal Albumin/Globulin [Mass ratio] 0.5 {ratio} Normal [facility] Comment on above: Performed By: #### C MP ####[facility] [address] [place] [id number] Leal ALP [Catalytic activity/Vol] 78 U/L Normal 46-116 [facility] Comment on above: Performed By: #### C MP ####[facility] [address] [place] [phone] Leal ALT [Catalytic activity/Vol] 22 U/L Normal 16-63 [facility] Comment on above: Performed By: #### C MP ####[facility] [address] [place] [phone]. Farhat Leal Anion gap [Moles/Vol] 8.0 mmol/L Normal [facility] Comment on above: Performed By: #### C MP ####[facility] [address] [place] [phone]. Farhat Leal AST [Catalytic activity/Vol] 92 U/L Critically high 15-37 [facility] Comment on above: Performed By: #### C MP ####[facility] [address] [place] [phone]. Farhat Elvis Bilirubin [Mass/Vol] 0.7 mg/dL Normal 0.2-1.0 [facility] Comment on above: Performed By: #### C MP ####[facility] [address] [place] [address]Dr. Farhat Leal Calcium [Mass/Vol] 7.8 mg/dL Critically low 8.5-10.1 Th e [facility] Comment on above: Performed By: #### C MP ####[facility] [address] [place] [address]Dr. Madelynlorri Leal Chloride [Moles/Vol] 99 mmol/L Normal 98-107 [facility] Comment on above: Performed By: #### C MP ####[facility] [address] [place] [phone]. Madelynlorri Elvis CO2 [Moles/Vol] 30.9 mmol/L Normal 21.0-32.0 [facility] Comment on above: Performed By: #### C MP ####[facility] [address] [place] [phone]. Farhat Elvis Creatinine [Mass/Vol] 0.95 mg/dL Normal 0.70-1.30 [facility] Comment on above: Performed By: #### C MP ####[facility] [address] [place] [phone]. Farhat Leal EGFR-AF EMIRATI >60 Normal >=60 [facility] Comment on above: Performed By: #### C MP ####[facility] [address] [place] [phone]. Farhat Leal EGFR-NON AF EMIRATI >60 Normal >=60 [facility] Comment on above: Performed By: #### C MP ####[facility] [address] [place] [phone]. Farhat Leal Globulin (S) [Mass/Vol] 3.9 g/dL Normal [facility] Comment on above: Performed By: #### C MP ####[facility] [address] [place] [address]Dr. Farhat Leal Glucose [Mass/Vol] 124 mg/dL Critically high 74-106 T [facility] Comment on above: Performed By: #### C MP ####[facility] [address] [place] [address]Dr. Farhat Leal Potassium [Moles/Vol] 5.9 mmol/L Critically high 3.5-5.1 [facility] Comment on above: Performed By: #### C MP ####[facility] [address] [place], [place] [address]Dr. Farhat Leal Protein [Mass/Vol] 5.8 g/dL Critically low 6.4-8.2 [facility] Comment on above: Performed By: #### C MP ####[facility] [address] [place], [place] [address]Dr. Farhat Leal Sodium [Moles/Vol] 132 mmol/L Critically low 136-145 [facility] Comment on above: Performed By: #### C MP ####[facility] [address] [place], [place] [address]Dr. Farhat Leal Urea nitrogen [Mass/Vol] 18.0 mg/dL Normal 7.0-18.0 [facility] Comment on above: Performed By: #### C MP ####[facility] [address] [place], [place] [address]Dr. Farhat Leal Urea nitrogen/Creatinine [Mass ratio] 18.9 mg/mg Normal [facility] Comment on above: Performed By: #### C MP ####[facility] [address] [place] [phone]. Farhat Leal INR (POC)on 01-12-2022 INR Coag (PPP) [Relative time] 2.6 {INR} High 0.8 - 1.2 [facility] Internal Quality Check Acceptable Cl [facility] ACID FAST SMEAR AND CXon Acid Fast Culture Negative Normal [facility] Comment on above: Result Comment: No a abdiel fast bacilli isolated after 6 weeks. Performed By: #### A FB ####[facility] [address] [place], [place] [address]Dr. Farhat Leal Acid Fast Smear Negative Normal [facility] Comment on above: Performed By: #### A FB ####[facility] [address] [place], [place] [address]Dr. Farhat Leal [employer] Specimen Processing Direct Inoculation Normal [facility] Comment on above: Performed By: #### A FB ####[facility] [address] [place], [place] [address]Dr. Farhat Leal ACID FAST SMEAR AND CXon Acid Fast Culture Negative Normal [facility] Comment on above: Result Comment: No a abdiel fast bacilli isolated after 6 weeks. Performed By: #### A FB ####[facility] [address] [place], [place] [address]Dr. Farhat Leal Acid Fast Smear Negative Normal [facility] Comment on above: Performed By: #### A FB ####[facility] [address] [place], [place] [address]Dr. Farhat Leal [employer] Specimen Processing Tissue Grinding Normal [facility] Comment on above: Performed By: #### A FB ####[facility] V[address] [place], [place] [address]Dr. Farhat Leal FUNGAL CULTUREon 01-02-2022 Fungus (Mycology) Culture Final report Normal [facility] Comment on above: Performed By: #### C XFUN ####[facility] [address] [place], [place] [address]Dr. Farhat Leal Fungus Stain Final report Normal [facility] Comment on above: Performed By: #### C XFUN ####[facility] [address] [place] [address]. Madelynlorri Leal Result 1 Comment Normal [facility] Comment on above: Result Comment: ANNI/ Calcofluor preparation: no fungus observed. Performed By: #### C XFUN ####[facility] [facility] [address] [place], [place] [address]Dr. Farhat Leal Result Comment: No y east or mold isolated after 4 weeks. FK506 (TACROLIMUS) WHOLE BLO ODon 12-31-2021 Tacrolimus (FK506), Blood 7.7 ng/mL Normal 2.0-20.0 [facility] Comment on above: Result Comment: Trou gh (immediately following transplant) 15.0 . Trough (steady state, 2 weeks or more after transplant): 3.0 - 8.0 . Performed by LC-MS/MS technology. Performed By: #### F [id number] ####[facility] Aycurpgqwi[address] [place], [place] [address]Dr. Farhat Leal HEMOGRAM AND PLATELon 2021 Hematocrit (Bld) [Volume fraction] 27.1 % Critically low 42.0-54.0 [facility] Comment on above: Performed By: #### H H ####[facility] [address] [place] [address]. Farhat Leal Hemoglobin (Bld) [Mass/Vol] 8.7 g/dL Critically low 14.0-18.0 [facility] Comment on above: Performed By: #### H H ####[facility] Jrsvhzgdst[address] [place], [place] [address]Dr. Farhat Leal MCH (RBC) [Entitic mass] 30.3 pg Normal 25.9-34.0 [facility] Comment on above: Performed By: #### H H ####[facility] [address] [place] [address]. Farhat Leal MCHC (RBC) [Mass/Vol] 32.1 g/dL Normal 29.9-35.2 [facility] Comment on above: Performed By: #### H H ####[facility] [address] [place] [id number]. Farhat Leal MCV (RBC) [Entitic vol] 94.4 fL Critically high 80.0-94.0 [facility] Comment on above: Performed By: #### H H ####[facility] Vbvozosymi5[address] [place] [phone]. Farhat Leal PLT 355 103/ul Normal 150-450 [facility] Comment on above: Performed By: #### H H ####[facility] Fqidsrfeyl1091 [place] [phone]. Farhat Leal RBC 2.87 106/ul Critically low 4.70-6.10 [facility] Comment on above: Performed By: #### H H ####[facility] [address]jksjcwl[address] [place] [address]Dr. Farhat Leal WBC 6.0 103/ul Normal 4.0-11.0 [facility] Comment on above: Performed By: #### H H ####[facility] Mcgxsevohh[address] [place] [address]Dr. Farhat Leal PHOSPHORUSon 12-29-2021 Phosphate [Mass/Vol] 2.5 mg/dL Critically low 2.6-4.7 [facility] Comment on above: Performed By: #### P HOS, CMP ####[facility] T[address]llocpnbr[address] [place] [address]Dr. Farhat Elvis PROF 14(COMP METB)on 022 Albumin [Mass/Vol] 1.7 g/dL Critically low 3.4-5.0 [facility] Comment on above: Performed By: #### P HOS, CMP ####[facility] [address]fexidbh[address] [place] [address]Dr. Farhat Leal Albumin/Globulin [Mass ratio] 0.5 {ratio} Normal [facility] Comment on above: Performed By: #### P HOS, CMP ####[facility] Enthtlmfzx[address] [place] [address]Dr. Farhat Leal ALP [Catalytic activity/Vol] 78 U/L Normal 46-116 [facility] Comment on above: Performed By: #### P HOS, CMP ####[facility] Xxpklslwak8451 [place] [address]Dr. Farhat Leal ALT [Catalytic activity/Vol] 12 U/L Critically low 16-63 [facility] Comment on above: Performed By: #### P HOS, CMP ####[facility] Gozxgxwhbh6061 [place] [address]Dr. Faraht Leal Anion gap [Moles/Vol] 5.1 mmol/L Normal [facility] Comment on above: Performed By: #### P HOS, CMP ####[facility] Walnimxicq[address] [place], [place] [address]Dr. Farhat Leal AST [Catalytic activity/Vol] 22 U/L Normal 15-37 [facility] Comment on above: Performed By: #### P HOS, CMP ####[facility] Hkogymkeiw[address] [place], [place] [address]Dr. Farhat Leal Bilirubin [Mass/Vol] 0.6 mg/dL Normal 0.2-1.0 [facility] Comment on above: Performed By: #### P HOS, CMP ####[facility] Wtakkrbbla[address] [place], [place] [address]Dr. Farhat Leal Calcium [Mass/Vol] 8.1 mg/dL Critically low 8.5-10.1 [facility] Comment on above: Performed By: #### P HOS, CMP ####[facility] Ncdkxzuhyl[address] [place], [place] [address]Dr. Farhat Leal Chloride [Moles/Vol] 100 mmol/L Normal 98-107 [facility] Comment on above: Performed By: #### P HOS, CMP ####[facility] Wuekipmidn[address] [place], [place] [address]Dr. Farhat Leal CO2 [Moles/Vol] 34.2 mmol/L Critically high 21.0-32.0 [facility] Comment on above: Performed By: #### P HOS, CMP ####[facility] X[address] [place], [place] [address]Dr. Farhat Leal Creatinine [Mass/Vol] 0.92 mg/dL Normal 0.70-1.30 [facility] Comment on above: Performed By: #### P HOS, CMP ####[facility] Tdslimcuxn9111 [place] [phone]. Farhat Leal EGFR-AF EMIRATI >60 Normal >=60 [facility] Comment on above: Performed By: #### P HOS, CMP ####[facility] Hbdumjksws1247 [place] [phone]. Farhat Leal EGFR-NON AF EMIRATI >60 Normal >=60 [facility] Comment on above: Performed By: #### P HOS, CMP ####[facility] Lywoihgnvg6135 [place] [phone]. Farhat Leal Globulin (S) [Mass/Vol] 3.3 g/dL Normal [facility] Comment on above: Performed By: #### P HOS, CMP ####[facility] Zwhtvtchgn4230 [place] [address]Dr. Farhat Elvis Glucose [Mass/Vol] 116 mg/dL Critically high 74-106 [facility] Comment on above: Performed By: #### P HOS, CMP ####[facility] Ekzpiizjxc5296 [place] [phone]. Farhat Elvis Potassium [Moles/Vol] 3.3 mmol/L Critically low 3.5-5.1 [facility] Comment on above: Performed By: #### P HOS, CMP ####[facility] Bgwglngxzu2951 [place] [phone]. Farhat Elvis Protein [Mass/Vol] 5.0 g/dL Critically low 6.4-8.2 [facility] Comment on above: Performed By: #### P HOS, CMP ####[facility] Ulmsueyebf9893 [place] [address]Dr. Farhat Leal Sodium [Moles/Vol] 136 mmol/L Normal 136-145 [facility] Comment on above: Performed By: #### P HOS, CMP ####[facility] Kchxmiboic2655 [place] [phone]. Farhat Elvis Urea nitrogen [Mass/Vol] 14.0 mg/dL Normal 7.0-18.0 [facility] Comment on above: Performed By: #### P HOS, CMP ####[facility] Dlshniocpn[address] [place], [place] [address]Dr. Farhat Leal Urea nitrogen/Creatinine [Mass ratio] 15.2 mg/mg Normal [facility] Comment on above: Performed By: #### P HOS, CMP ####[facility] Zrlwehyven[address] [place], [place] [address]Dr. Farhat Leal PROTIMEon 12-29-2021 INR Coag (PPP) [Relative time] 1.26 {INR} Normal [facility] Comment on above: Performed By: #### P T ####[facility] Hkgqkxludx[address] [place], [place] [address]Dr. Farhat Leal INR GUIDELINES SEE BELOW Normal [facility] Comment on above: Result Comment: MALINA RED INR: 2.0 - 3.0 CONDITIONS NOT LISTED BELOW 2.5 - 3.5 FOR PROSTHETIC HEART VALVE REPLACEMENT 2.5 - 3.5 RECURRENT THROMBOSIS Performed By: #### P T ####[facility] Yjveghwtec[address] [place], [place] [address]Dr. Farhat Leal PT Coag (PPP) [Time] 13.4 s Critically high 9.0-11.6 [facility] Comment on above: Performed By: #### P T ####[facility] Wjadegxhch[address] [place], [place] [address]Dr. Farhat Leal XR MODIFIED BARIUM SWALLOWon 12-25-2021 XR MODIFIED BARIUM SWALLOW Normal [facility] FUNGAL CULTUREon 12-24-2021 Fungus (Mycology) Culture Final report Normal [facility] Comment on above: Performed By: #### C XFUN ####[facility] Utlqtuivbf[address] [place], [place] [address]Dr. Farhat Leal Fungus Stain Final report Normal [facility] Comment on above: Performed By: #### C XFUN ####[facility] J[address]fccyijn[address] [place], [place] [address]Dr. Farhat Leal Result 1 Comment Normal [facility] Comment on above: Result Comment: ANNI/ Calcofluor preparation: no fungus observed. Performed By: #### C XFUN ####[facility] Nsxcwjysxo9[address] [place] [address]Dr. Madelynlorri Leal Result Comment: No y east or mold isolated after 4 weeks. VANCOMYCIN TROUGHon 12-21-19 VANCOMYCIN TROUGH 14.4 ug/ml Normal 5.0-20.0 [facility] Comment on above: Performed By: #### V ANCT ####[facility] Plpplpovek[address] [place], [place] [address]Dr. Farhat Leal CBC AUTO DIFFon 12-14-2021 BASO # 0.0 103/ul Normal 0.0-0.1 [facility] Comment on above: Performed By: #### C BC ####[facility] Clbtzemkck[address] [place], [place] [address]Dr. Farhat Leal Basophils/100 WBC (Bld) 0.2 % Normal 0.2-2.0 [facility] Comment on above: Performed By: #### C BC ####[facility] Ifnastvnaj[address] [place], [place] [address]Dr. Farhat Leal EO # 0.2 103/ul Normal 0.0-0.7 [facility] Comment on above: Performed By: #### C BC ####[facility] Dxslhpijbm[address] [place], [place] [address]Dr. Farhat Leal Eosinophils/100 WBC (Bld) 2.1 % Normal 0.9-7.0 [facility] Comment on above: Performed By: #### C BC ####[facility] Bnbzwsiyoc[address] [place], [place] [address]Dr. Farhat Leal Erythrocyte distribution width (RBC) [Ratio] 18.2 % Critically high 11.0-15.0 [facility] Comment on above: Performed By: #### C BC ####[facility] H[address]enklqy[address] [place], [place] [address]Dr. Farhat Leal Hematocrit (Bld) [Volume fraction] 25.8 % Critically low 42.0-54.0 [facility] Comment on above: Performed By: #### C BC ####[facility] Flfjkixwms9[address] [place] [address]Dr. Farhat Leal Hemoglobin (Bld) [Mass/Vol] 8.0 g/dL Critically low 14.0-18.0 [facility] Comment on above: Performed By: #### C BC ####[facility] Zmiqqixxga1134 [place] [address]Dr. Farhat Leal IG # 0.08 10e3/ul Critically high 0.00-0.03 [facility] Comment on above: Performed By: #### C BC ####[facility] Xhetonhrey3002 [place] [address]Dr. Farhat Leal IG % 0.7 % Critically high 0.0-0.5 [facility] Comment on above: Performed By: #### C BC ####[facility] Nrazsyznsw0512 [place] [address]Dr. Farhat Leal LYMPH # 0.9 103/ul Critically low 1.2-3.8 [facility] Comment on above: Performed By: #### C BC ####[facility] Jgrsakyoyj8996 [place] [address]Dr. Farhat Leal Lymphocytes/100 WBC (Bld) 8.7 % Critically low 20.5-60.0 [facility] Comment on above: Performed By: #### C BC ####[facility] Ritiuhersd9066 [place] [address]Dr. Farhat Leal MANUAL DIFF REQ NO Normal [facility] Comment on above: Performed By: #### C BC ####[facility] Hvccjscysh5980 [place] [address]Dr. Farhat Leal MCH (RBC) [Entitic mass] 30.0 pg Normal 25.9-34.0 [facility] Comment on above: Performed By: #### C BC ####[facility] Owsvyvvijv[address] [place], [place] [address]Dr. Farhat Leal MCHC (RBC) [Mass/Vol] 31.0 g/dL Normal 29.9-35.2 [facility] Comment on above: Performed By: #### C BC ####[facility] Jlnnjzpjlj2725 [place] [phone]. Farhat Leal MCV (RBC) [Entitic vol] 96.6 fL Critically high 80.0-94.0 [facility] Comment on above: Performed By: #### C BC ####[facility] Odhlrtcdsq5679 [place] [phone]. Farhat Leal MONO # 0.7 103/ul Normal 0.3-0.8 [facility] Comment on above: Performed By: #### C BC ####[facility] Nxzjujyaet4404 [place] [address]Dr. Farhat Leal Monocytes/100 WBC (Bld) 6.7 % Normal 1.7-12.0 [facility] Comment on above: Performed By: #### C BC ####[facility] Jexrcnsbpi[address] [place], [place] [address]Dr. Farhat Leal NEUT # 8.8 103/ul Critically high 1.4-6.5 [facility] Comment on above: Performed By: #### C BC ####[facility] Chgnldphil[address] [place], [place] [address]Dr. Farhat Leal Neutrophils/100 WBC (Bld) 81.6 % Critically high 43.0-75.0 [facility] Comment on above: Performed By: #### C BC ####[facility] Legkxbnqfm2666 [place] [address]Dr. Farhat Leal Platelet mean volume (Bld) [Entitic vol] 10.5 fL Normal 9.5-13.5 [facility] Comment on above: Performed By: #### C BC ####[facility] Wqasuzzcrw6464 [place] [id number]. Farhat Leal PLT 285 103/ul Normal 150-450 [facility] Comment on above: Performed By: #### C BC ####[facility] Zqqodgxevu6974 [place] [phone]. Farhat Elvis RBC 2.67 106/ul Critically low 4.70-6.10 [facility] Comment on above: Performed By: #### C BC ####[facility] Xtiaifuokf4312 [place] [address]Dr. Farhat Elvis WBC 10.7 103/ul Normal 4.0-11.0 [facility] Comment on above: Performed By: #### C BC ####[facility] Telzzrlska[address] [place], [place] [address]Dr. Farhat Elvis PROF CHEM 8 (BAS METB)on Anion gap [Moles/Vol] 12.4 mmol/L Normal [facility] Comment on above: Performed By: #### B MP ####[facility] Dvspyhaeph[address] [place], [place] [address]Dr. Farhat Leal Calcium [Mass/Vol] 7.8 mg/dL Critically low 8.5-10.1 [facility] Comment on above: Performed By: #### B MP ####[facility] Tvvpdtmoky[address] [place], [place] [address]Dr. Farhat Leal Chloride [Moles/Vol] 102 mmol/L Normal 98-107 [facility] Comment on above: Performed By: #### B MP ####[facility] Vhwjplqcvq[address] [place], [place] [address]Dr. Farhat Leal CO2 [Moles/Vol] 28.1 mmol/L Normal 21.0-32.0 [facility] Comment on above: Performed By: #### B MP ####[facility] Jwrcpwcgsn[address] [place], [place] [address]Dr. Farhat Leal Creatinine [Mass/Vol] 1.24 mg/dL Normal 0.70-1.30 [facility] Comment on above: Performed By: #### B MP ####[facility] Lnjckkkcrf34[address] [place], [place] [address]Dr. Farhat Leal EGFR-AF EMIRATI >60 Normal >=60 [facility] Comment on above: Performed By: #### B MP ####[facility] Nzskvnaywe[address] [place], [place] [address]Dr. Farhat Leal EGFR-NON AF EMIRATI 57 mL/min/1.73m2 Critically low >=60 [facility] Comment on above: Performed By: #### B MP ####[facility] Rnxvfthzxx2106 [place] [phone]. Farhat Leal Glucose [Mass/Vol] 296 mg/dL Critically high 74-106 [facility] Comment on above: Performed By: #### B MP ####[facility] Zfiqytetge7361 [place] [phone]. Farhat Leal Potassium [Moles/Vol] 3.5 mmol/L Normal 3.5-5.1 [facility] Comment on above: Performed By: #### B MP ####[facility] Tlkeltmyzn4007 [place] [address]Dr. Farhat Leal Sodium [Moles/Vol] 139 mmol/L Normal 136-145 [facility] Comment on above: Performed By: #### B MP ####[facility] Xjlsjtyfgf5727 [place] [address]Dr. Farhat Leal Urea nitrogen [Mass/Vol] 27.0 mg/dL Critically high 7.0-18.0 [facility] Comment on above: Performed By: #### B MP ####[facility] Sznc[address]oujoy[address] [place], [place] [address]Dr. Farhat Leal Urea nitrogen/Creatinine [Mass ratio] 21.8 mg/mg Normal [facility] Comment on above: Performed By: #### B MP ####[facility] Jgbeeglkum6949 [place] [address]Dr. Farhat Leal PROTIMEon 12-14-2021 INR Coag (PPP) [Relative time] 3.36 {INR} Normal [facility] Comment on above: Performed By: #### P T ####[facility] Vtaxdgfwsh4267 [place] [id number]. Farhat Leal INR GUIDELINES SEE BELOW Normal [facility] Comment on above: Result Comment: MALINA RED INR: 2.0 - 3.0 CONDITIONS NOT LISTED BELOW 2.5 - 3.5 FOR PROSTHETIC HEART VALVE REPLACEMENT 2.5 - 3.5 RECURRENT THROMBOSIS Performed By: #### P T ####[facility] X[address]nb[address]hszab[address] [place], [place] [address]Dr. Farhat Leal PT Coag (PPP) [Time] 33.5 s Critically high 9.0-11.6 [facility] Comment on above: Performed By: #### P T ####[place] [address] [place] [address]DrSkylar Leal XR CHEST 1 Von 12-14-2021 XR CHEST 1 V Normal [facility] No Panel Informationon 12-01 BLANK _ [facility] Implant Date 04/22/2012 [facility] CHECKon AMS Duration (ms) 5 of 8 [facility] AMS Fallback Rate (bpm) DDIR [facility] AV Delay Adaptive Paced Minimum (ms) 300 ms [facility] AV Delay Adaptive Rate Maximum (bpm) 130 {beats}/min [facility] AV Delay Adaptive Rate Minimum (bpm) 70 {beats}/min [facility] AV Delay Adaptive Sensed Minimum (ms) 300 ms [facility] AV Delay Paced (ms) 300 ms [facility] AV Delay Sensed (ms) 300 ms [facility] Jaciel LV Pacing Polarity Unknown [facility] Jaciel LV Sensing Polarity Unknown [facility] Jaciel RA Pacing Amplitude (volts) 2.4 V [facility] Jaciel RA Pacing Polarity BI [facility] Jaciel RA Pacing Pulse Width (ms) 0.4 ms [facility] Jaciel RA Sensing Amplitude (mvolts) AUTO [facility] Jaciel RA Sensing Blanking Period (ms) 56 ms [facility] Jaciel RA Sensing Polarity BI [facility] Jaciel RA Sensing Refractory Period (ms) AUTO [facility] Jaciel RV Pacing Amplitude (volts) 3.4 V [facility] Jaciel RV Pacing Polarity BI [facility] Jaciel RV Pacing Pulse Width (ms) 0.4 ms [facility] Jaciel RV Sensing Amplitude (mvolts) AUTO [facility] Jaciel RV Sensing Blanking Period (ms) 30 ms [facility] Jaciel RV Sensing Polarity BI [facility] Jaciel RV Sensing Refractory Period (ms) 250 ms [facility] Hysteresis Rate (bpm) 60 {beats}/min [facility] Lead1 Mfg SUZETTE [facility] Lead2 Mfg SUZETTE [facility] Location RA [facility] Location RV [facility] Lower Rate (bpm) 60 {beats}/min [facility] Max Sensor Rate (bmp) 130 {beats}/min [facility] Model 750702 Monika Dominguez [facility] Model 200861 [facility] Model 265006 [facility] Pacemaker Dependent? NO [facility] PM-Device Mfg BIO [facility] PM-PMT Intervention ON [facility] PM-PVC Intervention ON [facility] PM-Rate Modulation Acceleration Reaction 4 s [facility] PM-Rate Modulation Deceleration 0.5 m [facility] PM-Rate Modulation [place] 23 [facility] PM-Rate Modulation Threshold Medium [facility] RA Bipolar Impedance ohms 448 ohm [facility] Rhythm AF with controlled ventricular rate. [facility] RV Bipolar Impedance ohms 390 ohm [facility] Serial Number [id number] [facility] Serial Number [id number] [facility] Serial Number [id number] [facility] Thresh RA Sensing Amplitude (mvolts) 2.4 mV [facility] Thresh RV Capture Amplitude (volts) 1.8 V [facility] Thresh RV Capture Duration (ms) 0.4 ms [facility] Thresh RV Sensing Amplitude (mvolts) 2.4 mV [facility] Tracking Rate (bpm) 160 {beats}/min [facility] BNPon 11-28-2021 Natriuretic peptide B (Bld) [Mass/Vol] 63019.0 pg/mL Critically high <=1,800.0 [facility] Comment on above: Performed By: #### C MP, BNP, CRP ####[facility] Nwq[address]zfhzb[address] [place], [place] [address]DrSkylar Leal CBC AUTO DIFFon 11-28-2021 BASO # 0.0 103/ul Normal 0.0-0.1 [facility] Comment on above: Performed By: #### C BC ####[facility] Byfwepyrxr639[address] [place], [place] [address]Dr. Farhat Leal Basophils/100 WBC (Bld) 0.3 % Normal 0.2-2.0 [facility] Comment on above: Performed By: #### C BC ####[facility] Imvfndwdmj17[address] [place], [place] [address]DrSkylar Leal EO # 0.1 103/ul Normal 0.0-0.7 [facility] Comment on above: Performed By: #### C BC ####[facility] Qhkpzdotws[address] [place], [place] [address]DrSkylar Leal Eosinophils/100 WBC (Bld) 1.0 % Normal 0.9-7.0 [facility] Comment on above: Performed By: #### C BC ####[facility] Mammjljjik6172 [place] [address]Dr. Farhat Leal Erythrocyte distribution width (RBC) [Ratio] 14.0 % Normal 11.0-15.0 [facility] Comment on above: Performed By: #### C BC ####[facility] Oomeylrnfa22[address] [place], [place] [address]Dr. Farhat Leal Hematocrit (Bld) [Volume fraction] 27.6 % Critically low 42.0-54.0 [facility] Comment on above: Performed By: #### C BC ####[facility] Umkkirghab[address] [place], [place] [address]Dr. Farhat Leal Hemoglobin (Bld) [Mass/Vol] 9.0 g/dL Critically low 14.0-18.0 [facility] Comment on above: Performed By: #### C BC ####[facility] Cnxizyrdwd[address] [place], [place] [address]Dr. Farhat Leal IG # 0.12 10e3/ul Critically high 0.00-0.03 [facility] Comment on above: Performed By: #### C BC ####[facility] Dfqibnwizz[address] [place], [place] [address]Dr. Farhat Leal IG % 1.0 % Critically high 0.0-0.5 [facility] Comment on above: Performed By: #### C BC ####[facility] Sapjvxbchs[address] [place], [place] [address]Dr. Farhat Leal LYMPH # 1.2 103/ul Normal 1.2-3.8 [facility] Comment on above: Performed By: #### C BC ####[facility] Tkloeebxwm[address] [place], [place] [address]Dr. Farhat Leal Lymphocytes/100 WBC (Bld) 9.9 % Critically low 20.5-60.0 [facility] Comment on above: Performed By: #### C BC ####[facility] Ruydeqczvv[address] [place], [place] [address]Dr. Madelynlorri Leal MANUAL DIFF REQ NO Normal [facility] Comment on above: Performed By: #### C BC ####[facility] Wqinroexuy2231 [place] [address]Dr. Farhat Elvis MCH (RBC) [Entitic mass] 30.0 pg Normal 25.9-34.0 [facility] Comment on above: Performed By: #### C BC ####[facility] Ovirbpeeys[address] [place], [place] [address]Dr. Farhat Elvis MCHC (RBC) [Mass/Vol] 32.6 g/dL Normal 29.9-35.2 [facility] Comment on above: Performed By: #### C BC ####[facility] Zmrwyrobjt[address] [place], [place] [address]Dr. Farhat Leal MCV (RBC) [Entitic vol] 92.0 fL Normal 80.0-94.0 [facility] Comment on above: Performed By: #### C BC ####[facility] Xdrxqbqgpw[address] [place], [place] [address]Dr. Farhat Leal MONO # 1.1 103/ul Critically high 0.3-0.8 [facility] Comment on above: Performed By: #### C BC ####[facility] Uqkdhiplaj[address] [place], [place] [address]Dr. Farhat Leal Monocytes/100 WBC (Bld) 9.3 % Normal 1.7-12.0 [facility] Comment on above: Performed By: #### C BC ####[facility] Yhmwpdgtzo9[address] [place], [place] [address]Dr. Farhat Leal NEUT # 9.3 103/ul Critically high 1.4-6.5 [facility] Comment on above: Performed By: #### C BC ####[facility] Elyxrhcofm8[address] [place], [place] [address]Dr. Farhat Leal Neutrophils/100 WBC (Bld) 78.5 % Critically high 43.0-75.0 [facility] Comment on above: Performed By: #### C BC ####[facility] [address] [place], [place] [id number]. Farhat Leal Platelet mean volume (Bld) [Entitic vol] 9.6 fL Normal 9.5-13.5 [facility] Comment on above: Performed By: #### C BC ####[facility] [address] [place] [address]Dr. Farhat Leal PLT 357 103/ul Normal 150-450 [facility] Comment on above: Performed By: #### C BC ####[facility] [address]sdvs[address] [place] [address]Dr. Farhat Leal RBC 3.00 106/ul Critically low 4.70-6.10 [facility] Comment on above: Performed By: #### C BC ####[facility] [address]ycm[address] [place] [address]Dr. Farhat Leal WBC 11.8 103/ul Critically high 4.0-11.0 [facility] Comment on above: Performed By: #### C BC ####[facility] Xsjohtoucm[address] [place], [place] [address]Dr. Farhat Leal CRPon 11-28-2021 CRP 20.9 mg/dL Critically high <=1.0 [facility] Comment on above: Performed By: #### C MP, BNP, CRP ####[facility] [address]ndcdhl[address] [place] [address]Dr. Farhat Leal CULTURE OTHERon 11-28-2021 CULTURE OTHER Normal [facility] Comment on above: Performed By: #### O THCX ####[facility] Etyevennav[address] [place] [address]Dr. Farhat Leal CULTURE OTHER Normal [facility] Comment on above: Performed By: #### O THCX ####[facility] Spzbgfuzvz[address] [place], [place] [address]Dr. Farhat Leal PROF 14(COMP METB)on 022 Albumin [Mass/Vol] 1.4 g/dL Critically low 3.4-5.0 [facility] Comment on above: Performed By: #### C MP, BNP, CRP ####[facility] Qfxcygfhxx74[address] [place] [address]Dr. Farhat Leal Albumin/Globulin [Mass ratio] 0.4 {ratio} Normal [facility] Comment on above: Performed By: #### C MP, BNP, CRP ####[facility] N[address]ffqseay[address] [place] [address]Dr. Farhat Leal ALP [Catalytic activity/Vol] 82 U/L Normal 46-116 [facility] Comment on above: Performed By: #### C MP, BNP, CRP ####[facility] Ysdglejcpq[address] [place] [address]Dr. Farhat Elvis ALT [Catalytic activity/Vol] 20 U/L Normal 16-63 [facility] Comment on above: Performed By: #### C MP, BNP, CRP ####[facility] Fkichedtsl[address] [place], [place] [address]Dr. Madelynlorri Leal Anion gap [Moles/Vol] 13.0 mmol/L Normal [facility] Comment on above: Performed By: #### C MP, BNP, CRP ####[facility] Dlzlsayjgu727[address] [place], [place] [address]Dr. Farhat Leal AST [Catalytic activity/Vol] 33 U/L Normal 15-37 [facility] Comment on above: Performed By: #### C MP, BNP, CRP ####[facility] Rfnouivgat310[address] [place], [place] [address]Dr. Madelynlorri Leal Bilirubin [Mass/Vol] 0.7 mg/dL Normal 0.2-1.0 [facility] Comment on above: Performed By: #### C MP, BNP, CRP ####[facility] Wyfqrzynlg9[address] [place], [place] [address]Dr. Madelynlorri Leal Calcium [Mass/Vol] 8.4 mg/dL Critically low 8.5-10.1 [facility] Comment on above: Performed By: #### C MP, BNP, CRP ####[facility] Pikkngtuvx[address] [place], [place] [address]Dr. Farhat Leal Chloride [Moles/Vol] 100 mmol/L Normal 98-107 [facility] Comment on above: Performed By: #### C MP, BNP, CRP ####[facility] Nloluptqgn[address] [place] [address]Dr. Farhat Elvis CO2 [Moles/Vol] 23.7 mmol/L Normal 21.0-32.0 [facility] Comment on above: Performed By: #### C MP, BNP, CRP ####[facility] Ebcftyyqrh50[address] [place] [address]Dr. Farhat Elvis Creatinine [Mass/Vol] 1.70 mg/dL Critically high 0.70-1.30 [facility] Comment on above: Performed By: #### C MP, BNP, CRP ####[facility] Jhahkwxhnp18[address] [place], [place] [address]Dr. Farhat Elvis EGFR-AF EMIRATI 48 mL/min/1.73m2 Critically low >=60 [facility] Comment on above: Performed By: #### C MP, BNP, CRP ####[facility] Xmbgwcocmc[address] [place], [place] [address]Dr. Farhat Leal EGFR-NON AF EMIRATI 39 mL/min/1.73m2 Critically low >=60 [facility] Comment on above: Performed By: #### C MP, BNP, CRP ####[facility] Gquvwubegf[address] [place], [place] [address]Dr. Farhat Leal Globulin (S) [Mass/Vol] 3.6 g/dL Normal [facility] Comment on above: Performed By: #### C MP, BNP, CRP ####[facility] Ucmkosdsfm75[address] [place], [place] [address]Dr. Madelynlorri Elvis Glucose [Mass/Vol] 232 mg/dL Critically high 74-106 [facility] Comment on above: Performed By: #### C MP, BNP, CRP ####[facility] Ubzxlhmdty606[address] [place], [place] [address]Dr. Farhat Leal Potassium [Moles/Vol] 3.7 mmol/L Normal 3.5-5.1 [facility] Comment on above: Performed By: #### C MP, BNP, CRP ####[facility] Bmfefxpdne[address] [place], [place] [address]Dr. Farhat Leal Protein [Mass/Vol] 5.0 g/dL Critically low 6.4-8.2 [facility] Comment on above: Performed By: #### C MP, BNP, CRP ####[facility] Kenkzelw[address] [place] [address]Dr. Farhat Leal Sodium [Moles/Vol] 133 mmol/L Critically low 136-145 [facility] Comment on above: Performed By: #### C MP, BNP, CRP ####[facility] Yxsskoqbtv735[address] [place], [place] [address]Dr. Farhat Leal Urea nitrogen [Mass/Vol] 52.0 mg/dL Critically high 7.0-18.0 [facility] Comment on above: Performed By: #### C MP, BNP, CRP ####[facility] Puhoqzkcig055[address] [place], [place] [address]Dr. Farhat Leal Urea nitrogen/Creatinine [Mass ratio] 30.6 mg/mg Normal [facility] Comment on above: Performed By: #### C MP, BNP, CRP ####[facility] Qluhpjmdjl42[address] [place], [place] [address]Dr. Farhat Leal PROTIMEon 11-28-2021 INR Coag (PPP) [Relative time] 1.29 {INR} Normal [facility] Comment on above: Performed By: #### P T ####[facility] Xigqkbplxr73[address] [place], [place] [address]Dr. Farhat Leal INR GUIDELINES SEE BELOW Normal [facility] Comment on above: Result Comment: MALINA RED INR: 2.0 - 3.0 CONDITIONS NOT LISTED BELOW 2.5 - 3.5 FOR PROSTHETIC HEART VALVE REPLACEMENT 2.5 - 3.5 RECURRENT THROMBOSIS Performed By: #### P T ####[facility] Igaelypnxi9[address] [place], [place] [address]Dr. Farhat Leal PT Coag (PPP) [Time] 13.7 s Critically high 9.0-11.6 [facility] Comment on above: Performed By: #### P T ####[facility] Woysmbsvuy[address] [place], [place] [address]Dr. Farhat Leal SED RATE WESTERGRENon 2021 SED RATE 77 mm/hr Critically high <=20 [facility] Comment on above: Performed By: #### S EDR ####[facility] Bouzzzzemp[address] [place], [place] [address]Dr. Farhat Leal XR CHEST 2 Von 11-28-2021 XR CHEST 2 V Normal [facility] BNPon 11-27-2021 Natriuretic peptide B (Bld) [Mass/Vol] 47341.0 pg/mL Critically high <=1,800.0 [facility] Comment on above: Performed By: #### B LADLE POURER, CMP, CRP ####[facility] Xsdtwwlcyi[address] [place], [place] [address]Dr. Farhat Leal CBC AUTO DIFFon 11-27-2021 BASO # 0.0 103/ul Normal 0.0-0.1 [facility] Comment on above: Performed By: #### C BC ####[facility] Ffxtgmfjbz16[address] [place], [place] [address]Dr. Farhat Leal Basophils/100 WBC (Bld) 0.2 % Normal 0.2-2.0 [facility] Comment on above: Performed By: #### C BC ####[facility] Xowbjcvgnv68[address] [place], [place] [address]Dr. Farhat Leal EO # 0.2 103/ul Normal 0.0-0.7 [facility] Comment on above: Performed By: #### C BC ####[facility] Ikzprwgksl10[address] [place], [place] [address]Dr. Farhat Leal Eosinophils/100 WBC (Bld) 1.9 % Normal 0.9-7.0 [facility] Comment on above: Performed By: #### C BC ####[facility] Mcudepbgcw079[address] [place], [place] [address]Dr. Farhat Leal Erythrocyte distribution width (RBC) [Ratio] 13.9 % Normal 11.0-15.0 [facility] Comment on above: Performed By: #### C BC ####[facility] Uedyobjecn418[address] [place], [place] [address]Dr. Farhat Leal Hematocrit (Bld) [Volume fraction] 28.7 % Critically low 42.0-54.0 [facility] Comment on above: Performed By: #### C BC ####[facility] [address]qweg[address] [place] [address]DrSkylar Leal Hemoglobin (Bld) [Mass/Vol] 9.3 g/dL Critically low 14.0-18.0 [facility] Comment on above: Performed By: #### C BC ####[facility] K[address]rngwxddt[address] [place] [address]DrSkylar Leal IG # 0.14 10e3/ul Critically high 0.00-0.03 [facility] Comment on above: Performed By: #### C BC ####[facility] Qfwtrzzeuu7376 [place] [address]DrSkylar Leal IG % 1.2 % Critically high 0.0-0.5 [facility] Comment on above: Performed By: #### C BC ####[facility] Fnxokihsws[address] [place], [place] [address]DrSkylar Leal LYMPH # 1.1 103/ul Critically low 1.2-3.8 [facility] Comment on above: Performed By: #### C BC ####[facility] Xlvmhmgztu[address] [place], [place] [address]DrSkylar Leal Lymphocytes/100 WBC (Bld) 9.4 % Critically low 20.5-60.0 [facility] Comment on above: Performed By: #### C BC ####[facility] Rfckmxqzna[address] [place] [address]DrSkylar Leal MANUAL DIFF REQ NO Normal [facility] Comment on above: Performed By: #### C BC ####[facility] Xwjmkcdwmj2265 [place] [address]DrSkylar Leal MCH (RBC) [Entitic mass] 29.7 pg Normal 25.9-34.0 [facility] Comment on above: Performed By: #### C BC ####[facility] Kfgymdrecz4822 [place] [address]DrSkylar Leal MCHC (RBC) [Mass/Vol] 32.4 g/dL Normal 29.9-35.2 [facility] Comment on above: Performed By: #### C BC ####[facility] Soxrureijp8170 [place] [address]DrSkylar Leal MCV (RBC) [Entitic vol] 91.7 fL Normal 80.0-94.0 [facility] Comment on above: Performed By: #### C BC ####[facility] Gcdqveoago213[address] [place], [place] [address]DrSkylar Leal MONO # 1.1 103/ul Critically high 0.3-0.8 [facility] Comment on above: Performed By: #### C BC ####[facility] Hfjngxmrnh[address] [place], [place] [address]DrSkylar Leal Monocytes/100 WBC (Bld) 9.7 % Normal 1.7-12.0 [facility] Comment on above: Performed By: #### C BC ####[facility] Mmflfafldl84[address] [place], [place] [address]Dr. Farhat Leal NEUT # 9.2 103/ul Critically high 1.4-6.5 [facility] Comment on above: Performed By: #### C BC ####[facility] Hfrbbdwgld[address] [place], [place] [address]DrSkylar Leal Neutrophils/100 WBC (Bld) 77.6 % Critically high 43.0-75.0 [facility] Comment on above: Performed By: #### C BC ####[facility] Kquwkpodtb649[address] [place], [place] [address]DrSkylar Leal Platelet mean volume (Bld) [Entitic vol] 9.5 fL Normal 9.5-13.5 [facility] Comment on above: Performed By: #### C BC ####[facility] Ymnndekzmo[address] [place], [place] [address]DrSkylar Leal PLT 375 103/ul Normal 150-450 [facility] Comment on above: Performed By: #### C BC ####[facility] Klysjiqklc06[address] [place], [place] [address]DrSkylar Leal RBC 3.13 106/ul Critically low 4.70-6.10 [facility] Comment on above: Performed By: #### C BC ####[facility] Yamwqnfryy[address] [place] [address]Dr. Farhat Leal WBC 11.8 103/ul Critically high 4.0-11.0 [facility] Comment on above: Performed By: #### C BC ####[facility] Xvnxectlbn29[address] [place] [address]Dr. Madelynlorri Elvis CRPon 11-27-2021 CRP 24.5 mg/dL Critically high <=1.0 [facility] Comment on above: Performed By: #### B LADLE POURER, CMP, CRP ####[facility] Xvhhhdlzka54[address] [place], [place] [address]Dr. Madelynlorri Leal CULTURE OTHERon 11-27-2021 CULTURE OTHER Normal [facility] Comment on above: Performed By: #### O THCX ####[facility] Uzwcksdagn024[address] [place], [place] [address]Dr. Madelynlorri Leal CULTURE OTHER Normal [facility] Comment on above: Performed By: #### O THCX ####[facility] Ayrpwzdugi916[address] [place], [place] [address]Dr. Farhat Leal CULTURE WOUNDon 11-27-2021 CULTURE WOUND Normal [facility] Comment on above: Performed By: #### W OUNDCX ####[facility] Zlnkobcdbz387[address] [place], [place] [address]Dr. Farhat Leal POINT OF CARE GLUCOSEon 11-15 Glucose [Mass/Vol] 147 mg/dL Critically high 74-106 [facility] Comment on above: Performed By: #### P OCGLUC ####[facility] Iqdubcbwfj494[address] [place], [place] [address]Dr. Farhat Leal PROF 14(COMP METB)on 022 Albumin [Mass/Vol] 1.4 g/dL Critically low 3.4-5.0 [facility] Comment on above: Performed By: #### B LADLE POURER, CMP, CRP ####[facility] Leuykdbxga854[address] [place], [place] [address]Dr. Farhat Leal Albumin/Globulin [Mass ratio] 0.4 {ratio} Normal [facility] Comment on above: Performed By: #### B LADLE POURER, CMP, CRP ####[facility] Cctjmzmsdf74[address] [place], [place] [address]Dr. Farhat Leal ALP [Catalytic activity/Vol] 82 U/L Normal 46-116 [facility] Comment on above: Performed By: #### B LADLE POURER, CMP, CRP ####[facility] Ejvnyqoyiz317[address] [place], [place] [address]Dr. Farhat Leal ALT [Catalytic activity/Vol] 22 U/L Normal 16-63 [facility] Comment on above: Performed By: #### B LADLE POURER, CMP, CRP ####[facility] Tutdzxgsnt359[address] [place], [place] [address]Dr. Farhat Leal Anion gap [Moles/Vol] 14.2 mmol/L Normal [facility] Comment on above: Performed By: #### B LADLE POURER, CMP, CRP ####[facility] Ltbhpgjlzt199[address] [place], [place] [address]Dr. Farhat Leal AST [Catalytic activity/Vol] 35 U/L Normal 15-37 [facility] Comment on above: Performed By: #### B LADLE POURER, CMP, CRP ####[facility] Xvwnejloox469[address] [place], [place] [address]Dr. Farhat Elvis Bilirubin [Mass/Vol] 0.7 mg/dL Normal 0.2-1.0 [facility] Comment on above: Performed By: #### B LADLE POURER, CMP, CRP ####[facility] Dkmhzmznyc7[address] [place], [place] [address]Dr. Farhat Elvis Calcium [Mass/Vol] 8.2 mg/dL Critically low 8.5-10.1 [facility] Comment on above: Performed By: #### B LADLE POURER, CMP, CRP ####[facility] Wpyzkugyll[address] [place], [place] [address]Dr. Farhat Leal Chloride [Moles/Vol] 99 mmol/L Normal 98-107 [facility] Comment on above: Performed By: #### B LADLE POURER, CMP, CRP ####[facility] Pbismeqybh[address] [place] [address]Dr. Farhat Leal CO2 [Moles/Vol] 22.6 mmol/L Normal 21.0-32.0 [facility] Comment on above: Performed By: #### B LADLE POURER, CMP, CRP ####[facility] Ucqloqpseg90[address] [place] [address]Dr. Farhat Leal Creatinine [Mass/Vol] 1.73 mg/dL Critically high 0.70-1.30 [facility] Comment on above: Performed By: #### B LADLE POURER, CMP, CRP ####[facility] [address]wjdxtn[address] [place] [address]Dr. Farhat Elvis EGFR-AF EMIRATI 47 mL/min/1.73m2 Critically low >=60 [facility] Comment on above: Performed By: #### B LADLE POURER, CMP, CRP ####[facility] Mkcsresazb[address] [place], [place] [address]Dr. Farhat Leal EGFR-NON AF EMIRATI 38 mL/min/1.73m2 Critically low >=60 [facility] Comment on above: Performed By: #### B LADLE POURER, CMP, CRP ####[facility] Hxaqbzwvva[address] [place], [place] [address]Dr. Farhat Leal Globulin (S) [Mass/Vol] 3.7 g/dL Normal [facility] Comment on above: Performed By: #### B LADLE POURER, CMP, CRP ####[facility] Eksshzaetg[address] [place] [address]Dr. Madelynlorri Elvis Glucose [Mass/Vol] 220 mg/dL Critically high 74-106 [facility] Comment on above: Performed By: #### B LADLE POURER, CMP, CRP ####[facility] Wmsznjuezp[address] [place], [place] [address]Dr. Farhat Leal Potassium [Moles/Vol] 3.8 mmol/L Normal 3.5-5.1 [facility] Comment on above: Performed By: #### B LADLE POURER, CMP, CRP ####[facility] Pmlidowerf44[address] [place], [place] [address]Dr. Madelynlorri Leal Protein [Mass/Vol] 5.1 g/dL Critically low 6.4-8.2 [facility] Comment on above: Performed By: #### B LADLE POURER, CMP, CRP ####[facility] [address]zijilkz[address] [place] [address]Dr. Farhat Leal Sodium [Moles/Vol] 132 mmol/L Critically low 136-145 [facility] Comment on above: Performed By: #### B LADLE POURER, CMP, CRP ####[facility] Ccdvxpnqhl412[address] [place], [place] [address]Dr. Farhat Leal Urea nitrogen [Mass/Vol] 49.0 mg/dL Critically high 7.0-18.0 [facility] Comment on above: Performed By: #### B LADLE POURER, CMP, CRP ####[facility] Ntnymgdigc823[address] [place], [place] [address]Dr. Farhat Leal Urea nitrogen/Creatinine [Mass ratio] 28.3 mg/mg Normal [facility] Comment on above: Performed By: #### B LADLE POURER, CMP, CRP ####[facility] Woxwnjtvyv179[address] [place], [place] [address]Dr. Farhat Leal PROTIMEon 11-27-2021 INR Coag (PPP) [Relative time] 1.25 {INR} Normal [facility] Comment on above: Performed By: #### P T ####[facility] Jaaqhnehll[address] [place], [place] [address]Dr. Farhat Leal INR GUIDELINES SEE BELOW Normal [facility] Comment on above: Result Comment: MALINA RED INR: 2.0 - 3.0 CONDITIONS NOT LISTED BELOW 2.5 - 3.5 FOR PROSTHETIC HEART VALVE REPLACEMENT 2.5 - 3.5 RECURRENT THROMBOSIS Performed By: #### P T ####[facility] Bxulnglsun65[address] [place], [place] [address]Dr. Farhat Leal PT Coag (PPP) [Time] 13.3 s Critically high 9.0-11.6 [facility] Comment on above: Performed By: #### P T ####[facility] Hblnongsnw90[address] [place], [place] [address]Dr. Farhat Leal SED RATE WICHITAERGRENon 2021 SED RATE 60 mm/hr Critically high <=20 [facility] Comment on above: Performed By: #### S EDR ####[facility] Vfpycbylda[address] [place], [place] [address]Dr. Farhat Leal VANCOMYCIN TROUGHon 11-28-19 22 VANCOMYCIN TROUGH 21.2 ug/ml Critically high 5.0-20.0 Th e [facility] Comment on above: Performed By: #### V ANCT ####[facility] Czuhjfnskt[address] [place], [place] [address]Dr. Farhat Leal XR CHEST 1 Von 11-27-2021 XR CHEST 1 V Normal [facility] BNPon 11-26-2021 Natriuretic peptide B (Bld) [Mass/Vol] 55557.0 pg/mL Critically high <=1,800.0 [facility] Comment on above: Performed By: #### B LADLE POURER, CRP, CMP ####[facility] Fvkiggjhro[address] [place], [place] [address]Dr. Farhat Leal CBC AUTO DIFFon 11-26-2021 BASO # 0.0 103/ul Normal 0.0-0.1 [facility] Comment on above: Performed By: #### C BC ####[facility] Zfnmzbupze[address] [place], [place] [address]Dr. Farhat Leal Basophils/100 WBC (Bld) 0.2 % Normal 0.2-2.0 [facility] Comment on above: Performed By: #### C BC ####[facility] Vsmogcyuqw29[address] [place], [place] [address]Dr. Farhat Leal EO # 0.0 103/ul Normal 0.0-0.7 [facility] Comment on above: Performed By: #### C BC ####[facility] Kicxzwvgbh[address] [place], [place] [address]Dr. Farhat Leal Eosinophils/100 WBC (Bld) 0.3 % Critically low 0.9-7.0 [facility] Comment on above: Performed By: #### C BC ####[facility] Lwbeblolge419[address] [place], [place] [address]Dr. Farhat Leal Erythrocyte distribution width (RBC) [Ratio] 13.9 % Normal 11.0-15.0 [facility] Comment on above: Performed By: #### C BC ####[facility] [address]ctgcuge[address] [place] [address]Dr. Madelynlorri Elvis Hematocrit (Bld) [Volume fraction] 27.3 % Critically low 42.0-54.0 [facility] Comment on above: Performed By: #### C BC ####[facility] Sbjdkrgijk[address] [place], [place] [address]Dr. Farhat Leal Hemoglobin (Bld) [Mass/Vol] 8.8 g/dL Critically low 14.0-18.0 [facility] Comment on above: Performed By: #### C BC ####[facility] Ewofpnhhep[address] [place], [place] [address]Dr. Farhat Leal IG # 0.17 10e3/ul Critically high 0.00-0.03 [facility] Comment on above: Performed By: #### C BC ####[facility] Lkvsspkdit49[address] [place], [place] [address]Dr. Farhat Leal IG % 1.2 % Critically high 0.0-0.5 [facility] Comment on above: Performed By: #### C BC ####[facility] Jqjfazfkrd[address] [place], [place] [address]DrSkylar Leal LYMPH # 0.7 103/ul Critically low 1.2-3.8 [facility] Comment on above: Performed By: #### C BC ####[facility] [address]mhm[address] [place] [id number] Leal Lymphocytes/100 WBC (Bld) 4.8 % Critically low 20.5-60.0 [facility] Comment on above: Performed By: #### C BC ####[facility] Xhigftk[address] [place], [place] [address]DrSkylar Leal MANUAL DIFF REQ NO Normal [facility] Comment on above: Performed By: #### C BC ####[facility] Tnfsreezcs[address] [place], [place] [address]DrSkylar Leal MCH (RBC) [Entitic mass] 29.9 pg Normal 25.9-34.0 [facility] Comment on above: Performed By: #### C BC ####[facility] Okltsduzpq[address] [place] [address]Dr. Farhat Leal MCHC (RBC) [Mass/Vol] 32.2 g/dL Normal 29.9-35.2 [facility] Comment on above: Performed By: #### C BC ####[facility] Whkhoswzcr03[address] [place], [place] [address]Dr. Farhat Leal MCV (RBC) [Entitic vol] 92.9 fL Normal 80.0-94.0 [facility] Comment on above: Performed By: #### C BC ####[facility] Naoeceqvbj58[address] [place], [place] [address]Dr. Farhat Elvis MONO # 1.3 103/ul Critically high 0.3-0.8 [facility] Comment on above: Performed By: #### C BC ####[facility] Tgmtpzsasm212[address] [place], [place] [address]Dr. Madelynlorri Leal Monocytes/100 WBC (Bld) 9.6 % Normal 1.7-12.0 [facility] Comment on above: Performed By: #### C BC ####[facility] Rxfezmrbks216[address] [place], [place] [address]Dr. Farhat Leal NEUT # 11.4 103/ul Critically high 1.4-6.5 [facility] Comment on above: Performed By: #### C BC ####[facility] Qrjnrosfix232[address] [place], [place] [address]Dr. Madelynlorri Leal Neutrophils/100 WBC (Bld) 83.9 % Critically high 43.0-75.0 [facility] Comment on above: Performed By: #### C BC ####[facility] Enbuqpkozr45[address] [place], [place] [address]Dr. Farhat Elvis Platelet mean volume (Bld) [Entitic vol] 9.6 fL Normal 9.5-13.5 [facility] Comment on above: Performed By: #### C BC ####[facility] T[address]vztyfsq[address] [place] [id number]. Farhat Leal PLT 395 103/ul Normal 150-450 [facility] Comment on above: Performed By: #### C BC ####[facility] Rmjcuhlmey[address] [place] [address]Dr. Farhat Leal RBC 2.94 106/ul Critically low 4.70-6.10 [facility] Comment on above: Performed By: #### C BC ####[facility] Dqasvhpvgr8177 [place] [address]Dr. Farhat Leal WBC 13.6 103/ul Critically high 4.0-11.0 [facility] Comment on above: Performed By: #### C BC ####[facility] Aioafnexxv317[address] [place], [place] [address]Dr. Farhat Leal CRPon 11-26-2021 CRP [Mass/Vol] mg/L Critically high <=1.0 [facility] Comment on above: Performed By: #### B LADLE POURER, CRP, CMP ####[facility] Vcdtqqmoss54[address] [place], [place] [address]Dr. Farhat Elvis PROF 14(COMP METB)on 022 Albumin [Mass/Vol] 1.5 g/dL Critically low 3.4-5.0 [facility] Comment on above: Performed By: #### B LADLE POURER, CRP, CMP ####[facility] Qfrrcqlzii1147 [place] [address]Dr. Farhat Leal Albumin/Globulin [Mass ratio] 0.4 {ratio} Normal [facility] Comment on above: Performed By: #### B LADLE POURER, CRP, CMP ####[facility] Gqpcejlqqr25[address] [place] [address]Dr. Farhat Leal ALP [Catalytic activity/Vol] 88 U/L Normal 46-116 [facility] Comment on above: Performed By: #### B LADLE POURER, CRP, CMP ####[facility] Slqjqhvxfi5415 [place] [address]Dr. Farhat Leal ALT [Catalytic activity/Vol] 29 U/L Normal 16-63 [facility] Comment on above: Performed By: #### B LADLE POURER, CRP, CMP ####[facility] Stvyxonzex4833 [place] [address]Dr. Farhat Leal Anion gap [Moles/Vol] 13.3 mmol/L Normal [facility] Comment on above: Performed By: #### B LADLE POURER, CRP, CMP ####[facility] Rafumxgoqf9994 [place] [address]Dr. Farhat Leal AST [Catalytic activity/Vol] 32 U/L Normal 15-37 [facility] Comment on above: Performed By: #### B LADLE POURER, CRP, CMP ####[facility] Uhrqtkygew5239 [place] [address]Dr. Farhat Leal Bilirubin [Mass/Vol] 0.6 mg/dL Normal 0.2-1.0 [facility] Comment on above: Performed By: #### B LADLE POURER, CRP, CMP ####[facility] Kumqyveyqw154[address] [place], [place] [address]Dr. Farhat Leal Calcium [Mass/Vol] 8.0 mg/dL Critically low 8.5-10.1 [facility] Comment on above: Performed By: #### B LADLE POURER, CRP, CMP ####[facility] Fajnkfrypd[address] [place], [place] [address]Dr. Farhat Leal Chloride [Moles/Vol] 98 mmol/L Normal 98-107 [facility] Comment on above: Performed By: #### B LADLE POURER, CRP, CMP ####[facility] Eatwsbqmoh42[address] [place] [address]Dr. Farhat Leal CO2 [Moles/Vol] 23.7 mmol/L Normal 21.0-32.0 [facility] Comment on above: Performed By: #### B LADLE POURER, CRP, CMP ####[facility] Cdbfbvkukd39[address] [place], [place] [address]Dr. Farhat Leal Creatinine [Mass/Vol] 2.08 mg/dL Critically high 0.70-1.30 [facility] Comment on above: Performed By: #### B LADLE POURER, CRP, CMP ####[facility] Bbwdcmvasi135[address] [place], [place] [address]Dr. Farhat Leal EGFR-AF EMIRATI 38 mL/min/1.73m2 Critically low >=60 [facility] Comment on above: Performed By: #### B LADLE POURER, CRP, CMP ####[facility] Ykfsluvdfi4475 [place] [address]Dr. Farhat Leal EGFR-NON AF EMIRATI 31 mL/min/1.73m2 Critically low >=60 [facility] Comment on above: Performed By: #### B LADLE POURER, CRP, CMP ####[facility] Kkzvkrwsrp1689 [place] [address]Dr. Farhat Leal Globulin (S) [Mass/Vol] 3.7 g/dL Normal [facility] Comment on above: Performed By: #### B LADLE POURER, CRP, CMP ####[facility] Hevazvfvcu75[address] [place], [place] [address]Dr. Farhat Leal Glucose [Mass/Vol] 315 mg/dL Critically high 74-106 [facility] Comment on above: Performed By: #### B LADLE POURER, CRP, CMP ####[facility] Kcbtatwyjs674[address] [place], [place] [address]Dr. Farhat Leal Potassium [Moles/Vol] 4.0 mmol/L Normal 3.5-5.1 [facility] Comment on above: Performed By: #### B LADLE POURER, CRP, CMP ####[facility] Kklxsvdaux273[address] [place], [place] [address]Dr. Farhat Leal Protein [Mass/Vol] 5.2 g/dL Critically low 6.4-8.2 [facility] Comment on above: Performed By: #### B LADLE POURER, CRP, CMP ####[facility] Alvnmfryom678[address] [place], [place] [address]Dr. Farhat Leal Sodium [Moles/Vol] 131 mmol/L Critically low 136-145 [facility] Comment on above: Performed By: #### B LADLE POURER, CRP, CMP ####[facility] Jnhxdifnzd5565 [place] [address]Dr. Farhat Lela Urea nitrogen [Mass/Vol] 50.0 mg/dL Critically high 7.0-18.0 [facility] Comment on above: Performed By: #### B LADLE POURER, CRP, CMP ####[facility] Oqsdnaaenp1491 [place] [address]Dr. Farhat Leal Urea nitrogen/Creatinine [Mass ratio] 24.0 mg/mg Normal [facility] Comment on above: Performed By: #### B LADLE POURER, CRP, CMP ####[facility] Bizwgemoxa4722 [place] [address]Dr. Farhat Leal PROTIMEon 11-26-2021 INR Coag (PPP) [Relative time] 1.31 {INR} Normal [facility] Comment on above: Performed By: #### P T ####[facility] Szxofgkorp[address] [place], [place] [address]Dr. Farhat Leal INR GUIDELINES SEE BELOW Normal [facility] Comment on above: Result Comment: MALINA RED INR: 2.0 - 3.0 CONDITIONS NOT LISTED BELOW 2.5 - 3.5 FOR PROSTHETIC HEART VALVE REPLACEMENT 2.5 - 3.5 RECURRENT THROMBOSIS Performed By: #### P T ####[facility] Trvxofarmq17[address] [place], [place] [address]Dr. Farhat Leal PT Coag (PPP) [Time] 13.9 s Critically high 9.0-11.6 [facility] Comment on above: Performed By: #### P T ####[facility] Jmysedawyo12[address] [place], [place] [address]Dr. Farhat Leal [facility] 87 mm/hr Critically high <=20 [facility] Comment on above: Performed By: #### S EDR ####[facility] Mtlgjdoekk[address] [place], [place] [address]Dr. Farhat Leal BNPon 11-25-2021 Natriuretic peptide B (Bld) [Mass/Vol] 39032.0 pg/mL Critically high <=1,800.0 [facility] Comment on above: Performed By: #### C MP, BNP, CRP ####[facility] Savntwdmzz300[address] [place], [place] [address]Dr. Farhat Leal CBC AUTO DIFFon 11-25-2021 BASO # 0.0 103/ul Normal 0.0-0.1 [facility] Comment on above: Performed By: #### C BC ####[facility] Znflobpmkn2594 [place] [address]Dr. Farhat Leal Basophils/100 WBC (Bld) 0.4 % Normal 0.2-2.0 [facility] Comment on above: Performed By: #### C BC ####[facility] Swdtkolume5450 [place] [address]Dr. Farhat Leal EO # 0.1 103/ul Normal 0.0-0.7 [facility] Comment on above: Performed By: #### C BC ####[facility] Rexxrtbrmf26[address] [place], [place] [address]Dr. Farhat Leal Eosinophils/100 WBC (Bld) 1.2 % Normal 0.9-7.0 [facility] Comment on above: Performed By: #### C BC ####[facility] Ilgzewvkrt5760[address] [place], [place] [address]Dr. Farhat Leal Erythrocyte distribution width (RBC) [Ratio] 13.7 % Normal 11.0-15.0 [facility] Comment on above: Performed By: #### C BC ####[facility] Cggwuvtouw418[address] [place], [place] [address]Dr. Farhat Leal Hematocrit (Bld) [Volume fraction] 29.6 % Critically low 42.0-54.0 [facility] Comment on above: Performed By: #### C BC ####[facility] Jlayoxhcxk057[address] [place], [place] [address]Dr. Farhat Leal Hemoglobin (Bld) [Mass/Vol] 9.3 g/dL Critically low 14.0-18.0 [facility] Comment on above: Performed By: #### C BC ####[facility] Srtmrtcein[address] [place], [place] [address]Dr. Farhat Leal IG # 0.15 10e3/ul Critically high 0.00-0.03 [facility] Comment on above: Performed By: #### C BC ####[facility] Bvelndlisz69[address] [place], [place] [address]Dr. Farhat Leal IG % 1.4 % Critically high 0.0-0.5 [facility] Comment on above: Performed By: #### C BC ####[facility] Obcxyyjwdi60[address] [place] [address]Dr. Farhat Leal LYMPH # 0.8 103/ul Critically low 1.2-3.8 [facility] Comment on above: Performed By: #### C BC ####[facility] Zurpyqqrfw2003 [place] [address]Dr. Farhat Leal Lymphocytes/100 WBC (Bld) 7.3 % Critically low 20.5-60.0 [facility] Comment on above: Performed By: #### C BC ####[facility] Viqflipqhu1734[address] [place], [place] [address]DrSkylar Leal MANUAL DIFF REQ NO Normal [facility] Comment on above: Performed By: #### C BC ####[facility] Bvwevpzbwh44[address] [place], [place] [address]Dr. Farhat Leal MCH (RBC) [Entitic mass] 29.3 pg Normal 25.9-34.0 [facility] Comment on above: Performed By: #### C BC ####[facility] Ufwhkdrtma86[address] [place], [place] [address]Dr. Farhat Leal MCHC (RBC) [Mass/Vol] 31.4 g/dL Normal 29.9-35.2 [facility] Comment on above: Performed By: #### C BC ####[facility] Rotsiwftmq784[address] [place], [place] [address]Dr. Farhat Leal MCV (RBC) [Entitic vol] 93.4 fL Normal 80.0-94.0 [facility] Comment on above: Performed By: #### C BC ####[facility] Lmahmwokmq13[address] [place], [place] [address]DrSkylar Leal MONO # 1.3 103/ul Critically high 0.3-0.8 [facility] Comment on above: Performed By: #### C BC ####[facility] Znwrnlmdix6203 [place] [address]Dr. Farhat Leal Monocytes/100 WBC (Bld) 12.3 % Critically high 1.7-12.0 [facility] Comment on above: Performed By: #### C BC ####[facility] Byikzpawnq3854 [place] [address]Dr. Farhat Leal NEUT # 8.4 103/ul Critically high 1.4-6.5 [facility] Comment on above: Performed By: #### C BC ####[facility] Otzudgffmz2825 [place] [address]DrSkylar Leal Neutrophils/100 WBC (Bld) 77.4 % Critically high 43.0-75.0 [facility] Comment on above: Performed By: #### C BC ####[facility] Xivwstcayc019[address] [place], [place] [address]Dr. Farhat Leal Platelet mean volume (Bld) [Entitic vol] 9.8 fL Normal 9.5-13.5 [facility] Comment on above: Performed By: #### C BC ####[facility] Sreywbqvnv[address] [place], [place] [address]Dr. Farhat Leal PLT 390 103/ul Normal 150-450 [facility] Comment on above: Performed By: #### C BC ####[facility] Ntrdrdoqfp445[address] [place], [place] [address]Dr. Farhat Leal RBC 3.17 106/ul Critically low 4.70-6.10 [facility] Comment on above: Performed By: #### C BC ####[facility] Fcmtlnlzfr258[address] [place], [place] [address]DrSkylar Leal WBC 10.9 103/ul Normal 4.0-11.0 [facility] Comment on above: Performed By: #### C BC ####[facility] Ollrjanjqw419[address] [place], [place] [address]DrSkylar Leal CRPon 11-25-2021 CRP 27.2 mg/dL Critically high <=1.0 [facility] Comment on above: Performed By: #### C MP, BNP, CRP ####[facility] Ubeuxiqqtr257[address] [place], [place] [address]Dr. Farhat Leal PROF 14(COMP METB)on 022 Albumin [Mass/Vol] 1.5 g/dL Critically low 3.4-5.0 [facility] Comment on above: Performed By: #### C MP, BNP, CRP ####[facility] Zjkclyvqzq9156 [place] [address]Dr. Farhat Leal Albumin/Globulin [Mass ratio] 0.4 {ratio} Normal [facility] Comment on above: Performed By: #### C MP, BNP, CRP ####[facility] Wdsdayavnw6433 [place] [address]Dr. Farhat Leal ALP [Catalytic activity/Vol] 86 U/L Normal 46-116 [facility] Comment on above: Performed By: #### C MP, BNP, CRP ####[facility] Qofbhqpukl4780 [place] [address]Dr. Farhat Leal ALT [Catalytic activity/Vol] 34 U/L Normal 16-63 [facility] Comment on above: Performed By: #### C MP, BNP, CRP ####[facility] Ovlggyzbhy5558 [place] [address]Dr. Farhat Leal Anion gap [Moles/Vol] 17.8 mmol/L Normal [facility] Comment on above: Performed By: #### C MP, BNP, CRP ####[facility] Ubitymyfhe5058 [place] [address]Dr. Farhat Leal AST [Catalytic activity/Vol] 48 U/L Critically high 15-37 [facility] Comment on above: Performed By: #### C MP, BNP, CRP ####[facility] Ifzroifztr3764 [place] [address]Dr. Farhat Leal Bilirubin [Mass/Vol] 0.8 mg/dL Normal 0.2-1.0 [facility] Comment on above: Performed By: #### C MP, BNP, CRP ####[facility] Khpyrgsxwl8100 [place] [address]Dr. Farhat Leal Calcium [Mass/Vol] 8.3 mg/dL Critically low 8.5-10.1 [facility] Comment on above: Performed By: #### C MP, BNP, CRP ####[facility] Olonmbcxuc5200 [place] [address]Dr. Farhat Leal Chloride [Moles/Vol] 97 mmol/L Critically low 98-107 [facility] Comment on above: Performed By: #### C MP, BNP, CRP ####[facility] Vgefnvxhtg9788 [place] [address]Dr. Farhat Leal CO2 [Moles/Vol] 23.0 mmol/L Normal 21.0-32.0 [facility] Comment on above: Performed By: #### C MP, BNP, CRP ####[facility] Jzngnnqwlq823[address] [place], [place] [address]Dr. Madelynlorri Elvis Creatinine [Mass/Vol] 1.68 mg/dL Critically high 0.70-1.30 [facility] Comment on above: Performed By: #### C MP, BNP, CRP ####[facility] Jfthwtveqv280[address] [place], [place] [address]Dr. Madelynlorri Elvis EGFR-AF EMIRATI 48 mL/min/1.73m2 Critically low >=60 [facility] Comment on above: Performed By: #### C MP, BNP, CRP ####[facility] Svvvjokxif5364[address] [place], [place] [address]Dr. Farhat Elvis EGFR-NON AF EMIRATI 40 mL/min/1.73m2 Critically low >=60 [facility] Comment on above: Performed By: #### C MP, BNP, CRP ####[facility] Zoogbyxoab566[address] [place], [place] [address]Dr. Farhat Elvis Globulin (S) [Mass/Vol] 3.9 g/dL Normal [facility] Comment on above: Performed By: #### C MP, BNP, CRP ####[facility] Ekhltqmmoy416[address] [place], [place] [address]Dr. Farhat Leal Glucose [Mass/Vol] 282 mg/dL Critically high 74-106 [facility] Comment on above: Performed By: #### C MP, BNP, CRP ####[facility] Rqpetkkxbp178[address] [place], [place] [address]Dr. Faraht Leal Potassium [Moles/Vol] 4.8 mmol/L Normal 3.5-5.1 [facility] Comment on above: Performed By: #### C MP, BNP, CRP ####[facility] Iqqanrurud701[address] [place], [place] [address]Dr. Farhat Leal Protein [Mass/Vol] 5.4 g/dL Critically low 6.4-8.2 [facility] Comment on above: Performed By: #### C MP, BNP, CRP ####[facility] Uzkynlnqzn4627[address] [place], [place] [address]Dr. Farhat Leal Sodium [Moles/Vol] 133 mmol/L Critically low 136-145 [facility] Comment on above: Performed By: #### C MP, BNP, CRP ####[facility] Wroxemkeug5430[address] [place], [place] [address]Dr. Farhat Leal Urea nitrogen [Mass/Vol] 40.0 mg/dL Critically high 7.0-18.0 [facility] Comment on above: Performed By: #### C MP, BNP, CRP ####[facility] Ptlggmmohf48[address] [place], [place] [address]Dr. Farhat Leal Urea nitrogen/Creatinine [Mass ratio] 23.8 mg/mg Normal [facility] Comment on above: Performed By: #### C MP, BNP, CRP ####[facility] Mttokicixm647[address] [place], [place] [address]Dr. Farhat Leal PROTIMEon 11-25-2021 INR Coag (PPP) [Relative time] 1.48 {INR} Normal [facility] Comment on above: Performed By: #### P T ####[facility] Sqtzwdhmux466[address] [place], [place] [address]Dr. Farhat Leal INR GUIDELINES SEE BELOW Normal [facility] Comment on above: Result Comment: MALINA RED INR: 2.0 - 3.0 CONDITIONS NOT LISTED BELOW 2.5 - 3.5 FOR PROSTHETIC HEART VALVE REPLACEMENT 2.5 - 3.5 RECURRENT THROMBOSIS Performed By: #### P T ####[facility] Mjcubmjwop238[address] [place], [place] [address]Dr. Farhat Leal PT Coag (PPP) [Time] 15.6 s Critically high 9.0-11.6 [facility] Comment on above: Performed By: #### P T ####[facility] Qxtiwzzsxf34[address] [place], [place] [address]Dr. Farhat Leal SED RATE WESTERGRENon 2021 SED RATE 76 mm/hr Critically high <=20 [facility] Comment on above: Performed By: #### S EDR ####[facility] Ukrthcconp424[address] [place], [place] [address]Dr. Farhat Leal BNPon 11-24-2021 Natriuretic peptide B (Bld) [Mass/Vol] 36758.0 pg/mL Critically high <=1,800.0 [facility] Comment on above: Performed By: #### B LADLE POURER, CMP, CRP ####[facility] Mudrpdnpcr93[address] [place], [place] [address]Dr. Farhat Leal CBC AUTO DIFFon 11-24-2021 BASO # 0.0 103/ul Normal 0.0-0.1 [facility] Comment on above: Performed By: #### C BC ####[facility] Saeykutpwu005[address] [place], [place] [address]Dr. Madelynlorri Leal Basophils/100 WBC (Bld) 0.3 % Normal 0.2-2.0 [facility] Comment on above: Performed By: #### C BC ####[facility] Ktrzgoidvh6211[address] [place], [place] [address]Dr. Farhat Leal EO # 0.2 103/ul Normal 0.0-0.7 [facility] Comment on above: Performed By: #### C BC ####[facility] Ojischiwys[address] [place], [place] [address]Dr. Madelynlorri Leal Eosinophils/100 WBC (Bld) 1.2 % Normal 0.9-7.0 [facility] Comment on above: Performed By: #### C BC ####[facility] Vmbvnyfzis737[address] [place], [place] [address]Dr. Farhat Leal Erythrocyte distribution width (RBC) [Ratio] 13.5 % Normal 11.0-15.0 [facility] Comment on above: Performed By: #### C BC ####[facility] Cmqorclqkt6239 [place] [address]Dr. Farhat Leal Hematocrit (Bld) [Volume fraction] 31.1 % Critically low 42.0-54.0 [facility] Comment on above: Performed By: #### C BC ####[facility] Cicjftcgey1144 [place] [address]Dr. Farhat Leal Hemoglobin (Bld) [Mass/Vol] 10.0 g/dL Critically low 14.0-18.0 [facility] Comment on above: Performed By: #### C BC ####[facility] Xjhblswxic86[address] [place], [place] [address]Dr. Farhat Leal IG # 0.13 10e3/ul Critically high 0.00-0.03 [facility] Comment on above: Performed By: #### C BC ####[facility] Iyziwglxzg260[address] [place], [place] [address]DrSkylar Leal IG % 1.0 % Critically high 0.0-0.5 [facility] Comment on above: Performed By: #### C BC ####[facility] Yfsluudoqt94[address] [place], [place] [address]DrSkylar Leal LYMPH # 0.7 103/ul Critically low 1.2-3.8 [facility] Comment on above: Performed By: #### C BC ####[facility] Gsrdrufafi60[address] [place], [place] [address]DrSkylar Leal Lymphocytes/100 WBC (Bld) 4.9 % Critically low 20.5-60.0 [facility] Comment on above: Performed By: #### C BC ####[facility] Xxblnfsmft87[address] [place], [place] [address]DrSkylar Leal MANUAL DIFF REQ NO Normal [facility] Comment on above: Performed By: #### C BC ####[facility] Aijrfuqfks[address] [place], [place] [address]DrSkylar Leal MCH (RBC) [Entitic mass] 29.6 pg Normal 25.9-34.0 [facility] Comment on above: Performed By: #### C BC ####[facility] Pnnsxgwzty2865 [place] [id number]. Farhat Elvis MCHC (RBC) [Mass/Vol] 32.2 g/dL Normal 29.9-35.2 [facility] Comment on above: Performed By: #### C BC ####[facility] Ablhbxfdea4680 [place] [id number] Leal MCV (RBC) [Entitic vol] 92.0 fL Normal 80.0-94.0 [facility] Comment on above: Performed By: #### C BC ####[facility] Ngtnsjnhzx3395 [place] [address]DrSkylar Leal MONO # 1.3 103/ul Critically high 0.3-0.8 [facility] Comment on above: Performed By: #### C BC ####[facility] Msrtcuzhwa[address] [place], [place] [address]DrSkylar Leal Monocytes/100 WBC (Bld) 9.6 % Normal 1.7-12.0 [facility] Comment on above: Performed By: #### C BC ####[facility] Mcmuxfqvzl[address] [place], [place] [address]DrSkylar Leal NEUT # 11.2 103/ul Critically high 1.4-6.5 [facility] Comment on above: Performed By: #### C BC ####[facility] Jlrrxkdgms[address] [place], [place] [address]DrSkylar Leal Neutrophils/100 WBC (Bld) 83.0 % Critically high 43.0-75.0 [facility] Comment on above: Performed By: #### C BC ####[facility] Prebgqtcwd[address] [place], [place] [id number] Leal Platelet mean volume (Bld) [Entitic vol] 9.5 fL Normal 9.5-13.5 [facility] Comment on above: Performed By: #### C BC ####[facility] Kulloqoxbz[address] [place], [place] [id number] Leal PLT 395 103/ul Normal 150-450 [facility] Comment on above: Performed By: #### C BC ####[facility] Gfmxyvdbny3392 [place] [id number]. Farhat Leal RBC 3.38 106/ul Critically low 4.70-6.10 [facility] Comment on above: Performed By: #### C BC ####[facility] Csappffihk0495 [place] [id number]. Farhat Leal WBC 13.4 103/ul Critically high 4.0-11.0 [facility] Comment on above: Performed By: #### C BC ####[facility] Ludhltwbha1677 [place] [phone]. Farhat Leal CRPon 11-24-2021 CRP 27.8 mg/dL Critically high <=1.0 [facility] Comment on above: Performed By: #### B LADLE POURER, CMP, CRP ####[facility] Suffcuryff0975 [place] [phone]. Farhat Leal CULTURE ANAEROBICon 11-25-19 22 CULTURE ANAEROBIC Culture Observations : NO GROWTH OF ANAEROBES AT 72 HOURS. [facility] Comment on above: Performed By: #### A NACX ####[facility] Jpnocltbpd1821 [place] [phone]. Farhat Leal CULTURE ANAEROBIC Culture Observations : NO GROWTH OF ANAEROBES AT 72 HOURS. Normal [facility] Comment on above: Performed By: #### A NACX ####[facility] Afsporbcre3252 [place] [id number]. Farhat Leal CULTURE ANAEROBIC Culture Observations : No growth of anaerobes at 72 hours. [facility] Comment on above: Performed By: #### A NACX ####[facility] Frszfzvoxi7012 [place] [phone]. Farhat Leal CULTURE ANAEROBIC Culture Observations : No growth of anaerobes at 72 hours. [facility] Comment on above: Performed By: #### A NACX ####[facility] Ovhjesqzav9966 [place] [phone]. Farhat Leal CULTURE URINEon 10-10-2022 CULTURE URINE Culture Observations : NO GROWTH. Normal [facility] Comment on above: Performed By: #### U RCX ####[facility] Bskacuegea54[address] [place], [place] [address]Dr. Farhat Leal ECHOCARDIO M/2D COMPLETEon 1 ECHOCARDIO M/2D COMPLETE Normal [facility] ER URINE PROFILEon Bilirubin Ql (U) Negative Normal NEGATIVE [facility] Comment on above: Performed By: #### E RUR ####[facility] Likwwegkie384[address] [place], [place] [address]Dr. Farhat Leal Clarity (U) CLEAR Normal CLEAR [facility] Comment on above: Performed By: #### E RUR ####[facility] Quawkljbbz916[address] [place], [place] [address]Dr. Farhat Leal Color (U) YELLOW Normal YELLOW [facility] Comment on above: Performed By: #### E RUR ####[facility] Sktqeadstu387[address] [place], [place] [address]Dr. Farhat Leal ERUAHD A micrscopic examination will be performed if indicated. Normal [facility] Comment on above: Performed By: #### E RUR ####[facility] Pjpxppaska[address] [place], [place] [address]Dr. Farhat Leal Glucose Ql (U) Negative Normal NEGATIVE [facility] Comment on above: Performed By: #### E RUR ####[facility] Actpsagdcm500[address] [place], [place] [address]Dr. Farhat Leal Hemoglobin Ql (U) Negative Normal NEGATIVE [facility] Comment on above: Performed By: #### E RUR ####[facility] Ggdyhesbar4435[address] [place], [place] [address]Dr. Farhat Leal Ketones Ql (U) TRACE Abnormal NEGATIVE [facility] Comment on above: Performed By: #### E RUR ####[facility] Vpqypbcunn[address] [place], [place] [address]Dr. Farhat Leal LEUKOCYTES Negative Normal NEGATIVE [facility] Comment on above: Performed By: #### E RUR ####[facility] Tylbsilyxz8474 [place] [address]Dr. Farhat Leal Nitrite Ql (U) Negative Normal NEGATIVE [facility] Comment on above: Performed By: #### E RUR ####[facility] Uqmlfazotj075[address] [place], [place] [address]Dr. Farhat Leal pH (U) 5.5 [pH] Normal 5-9 [facility] Comment on above: Performed By: #### E RUR ####[facility] Zllocmhmbq4213[address] [place], [place] [address]Dr. Farhat Leal SPEC GRAVITY 1.015 Normal 1.005-<=1.[address] [place] [address] Comment on above: Performed By: #### E RUR ####[facility] Zxgqyjuuvi599[address] [place], [place] [address]Dr. Farhat Leal UA PROTEIN Negative Normal NEGATIVE/ TRACE [facility] Comment on above: Performed By: #### E RUR ####[facility] Tfaduaojbc5739[address] [place], [place] [address]Dr. Farhat Leal UR MICRO IND NOT INDICATED Normal [facility] Comment on above: Performed By: #### E RUR ####[facility] Fhjbixkwsx028[address] [place], [place] [address]Dr. Farhat Leal Urobilinogen Qn (U) 0.2 {Boyd'U}/dL Normal 0.2 - 1. 0 [facility] Comment on above: Performed By: #### E RUR ####[facility] Frohsoeghi[address] [place], [place] [address]Dr. Farhat Leal GRAM STAINon 11-24-2021 DIPHTHEROIDS Normal [facility] Comment on above: Performed By: #### G STAIN ####[facility] Njqzrypdco195[address] [place], [place] [address]Dr. Farhat Leal EPITHELIALS Normal [facility] Comment on above: Performed By: #### G STAIN ####[facility] Rpfxmjjnly39[address] [place], [place] [address]Dr. Farhat Leal FUNGAL ELEMENTS Normal [facility] Comment on above: Performed By: #### G STAIN ####[facility] Gmsgaqmdmj11[address] [place] [address]Dr. Farhat Leal GRAM NEG BACILLI Normal [facility] Comment on above: Performed By: #### G STAIN ####[facility] Xjojrjsccn3266 [place] [address]Dr. Farhat Leal GRAM NEG DIPPLOCOCCI Normal [facility] Comment on above: Performed By: #### G STAIN ####[facility] Kllrnocufl9[address] [place] [address]Dr. Farhat Leal GRAM POS BACILLI Normal [facility] Comment on above: Performed By: #### G STAIN ####[facility] Baxxtpssrz6740[address] [place], [place] [address]Dr. Farhat Leal GRAM POSITIVE COCCI FEW Normal [facility] Comment on above: Performed By: #### G STAIN ####[facility] Pnlbogbmig549[address] [place], [place] [address]Dr. Farhat Leal GRAM STAIN SOURCE RT ACHILLES TENDON Normal [facility] Comment on above: Performed By: #### G STAIN ####[facility] Zngmdaebmg546[address] [place], [place] [address]Dr. Farhat Leal GS_DIPTH Normal [facility] Comment on above: Performed By: #### G STAIN ####[facility] Wevkwylglu3815[address] [place], [place] [address]Dr. Farhat Leal WBC RARE Normal [facility] Comment on above: Performed By: #### G STAIN ####[facility] Bdlctdrmwb9[address] [place], [place] [address]Dr. Farhat Leal COMMENTS NO ORGANISMS OBSERVED Normal [facility] Comment on above: Performed By: #### G STAIN ####[facility] Jbnczxghsq5[address] [place], [place] [address]Dr. Farhat Leal DIPHTHEROIDS Normal [facility] Comment on above: Performed By: #### G STAIN ####[facility] Ebrhijhptw[address] [place], [place] [address]Dr. Farhat Leal EPITHELIALS Normal [facility] Comment on above: Performed By: #### G STAIN ####[facility] Tioswuvqva3817[address] [place], [place] [address]Dr. Farhat Leal FUNGAL ELEMENTS Normal [facility] Comment on above: Performed By: #### G STAIN ####[facility] Fodxygmccs4739 [place] [address]Dr. Farhat Leal GRAM NEG BACILLI Normal [facility] Comment on above: Performed By: #### G STAIN ####[facility] Oyeqarqfgl33[address] [place] [address]Dr. Farhat Leal GRAM NEG DIPPLOCOCCI Normal [facility] Comment on above: Performed By: #### G STAIN ####[facility] Neruhqdkld650[address] [place], [place] [address]Dr. Farhat Leal GRAM POS BACILLI Normal [facility] Comment on above: Performed By: #### G STAIN ####[facility] Dzvnmldmbu337[address] [place], [place] [address]Dr. Farhat Leal GRAM POSITIVE COCCI Normal [facility] Comment on above: Performed By: #### G STAIN ####[facility] Rmbzjdbmhi[address] [place], [place] [address]Dr. Farhat Leal GRAM STAIN SOURCE RT CALCANEOUS Normal [facility] Comment on above: Performed By: #### G STAIN ####[facility] Fnyknuoypi9[address] [place], [place] [address]Dr. Farhat Leal GS_DIPTH Normal [facility] Comment on above: Performed By: #### G STAIN ####[facility] Btyrcsmfji[address] [place], [place] [address]Dr. Farhat Leal WBC RARE Normal [facility] Comment on above: Performed By: #### G STAIN ####[facility] Jymergtdef9430 [place] [address]Dr. Farhat Leal DIPHTHEROIDS Normal [facility] Comment on above: Performed By: #### G STAIN ####[facility] Ehotwdbnqh49[address] [place], [place] [address]Dr. Farhat Leal EPITHELIALS Normal [facility] Comment on above: Performed By: #### G STAIN ####[facility] Wabocovkvt30[address] [place], [place] [address]Dr. Farhat Leal FUNGAL ELEMENTS Normal [facility] Comment on above: Performed By: #### G STAIN ####[facility] Aooizqrmcc7519 [place] [address]Dr. Farhat Leal GRAM NEG BACILLI FEW Normal [facility] Comment on above: Performed By: #### G STAIN ####[facility] Htioomdrdo0260 [place] [address]Dr. Farhat Leal GRAM NEG DIPPLOCOCCI Normal [facility] Comment on above: Performed By: #### G STAIN ####[facility] Bqurpyynsx3239 [place] [address]Dr. Farhat Leal GRAM POS BACILLI Normal [facility] Comment on above: Performed By: #### G STAIN ####[facility] Evegtuvfoa220[address] [place], [place] [address]Dr. Farhat Leal GRAM POSITIVE COCCI FEW Normal [facility] Comment on above: Performed By: #### G STAIN ####[facility] Jwhmakrzrv[address] [place], [place] [address]Dr. Farhat Leal GRAM STAIN SOURCE #2 Rt foot abscess Normal [facility] Comment on above: Performed By: #### G STAIN ####[facility] Psepxugtqa045[address] [place], [place] [address]Dr. Farhat Leal GS_DIPTH Normal [facility] Comment on above: Performed By: #### G STAIN ####[facility] Xireunwzwa318[address] [place], [place] [address]Dr. Farhat Leal WBC RARE Normal [facility] Comment on above: Performed By: #### G STAIN ####[facility] Owxwqysczq8147 [place] [address]Dr. Farhat Leal DIPHTHEROIDS Normal [facility] Comment on above: Performed By: #### G STAIN ####[facility] Ykjxjbdnao83[address] [place], [place] [address]Dr. Farhat Leal EPITHELIALS Normal [facility] Comment on above: Performed By: #### G STAIN ####[facility] Jbxrnktexu2230 [place] [address]Dr. Farhat Leal FUNGAL ELEMENTS Normal [facility] Comment on above: Performed By: #### G STAIN ####[facility] Aaoougfcrv3035 [place] [id number]. Farhat Leal GRAM NEG BACILLI FEW Normal [facility] Comment on above: Performed By: #### G STAIN ####[facility] Rdysclhrcs2419 [place] [address]Dr. Farhat Leal GRAM NEG DIPPLOCOCCI Normal [facility] Comment on above: Performed By: #### G STAIN ####[facility] Ewzfrjxrui3110 [place] [address]Dr. Farhat Leal GRAM POS BACILLI Normal [facility] Comment on above: Performed By: #### G STAIN ####[facility] Vdavytwxwk3948 [place] [address]Dr. Farhat Leal GRAM POSITIVE COCCI FEW Normal [facility] Comment on above: Performed By: #### G STAIN ####[facility] Zusasidvcj130[address] [place], [place] [address]Dr. Farhat Leal GRAM STAIN SOURCE #1 Rt foot abscess Normal [facility] Comment on above: Performed By: #### G STAIN ####[facility] Lmnvarzpyj3947 [place] [address]Dr. Farhat Leal GS_DIPTH Normal [facility] Comment on above: Performed By: #### G STAIN ####[facility] Urekljznqc3742 [place] [address]Dr. Farhat Leal WBC NONE SEEN Normal [facility] Comment on above: Performed By: #### G STAIN ####[facility] Jniiymhifl[address] [place], [place] [address]Dr. Farhat Leal POINT OF CARE GLUCOSEon 10- 0-2021 Glucose [Mass/Vol] 331 mg/dL Critically high 74-106 [facility] Comment on above: Performed By: #### P OCGLUC ####[facility] Pbyfimxqbo[address] [place], [place] [address]Dr. Farhat Leal Glucose [Mass/Vol] 236 mg/dL Critically high 74-106 [facility] Comment on above: Performed By: #### P OCGLUC ####[facility] Cqbyrrdiyu119[address] [place], [place] [address]Dr. Farhat Leal PROF 14(COMP METB)on 022 Albumin [Mass/Vol] 1.6 g/dL Critically low 3.4-5.0 [facility] Comment on above: Performed By: #### B LADLE POURER, CMP, CRP ####[facility] Ihwwxkmmpc6426 [place] [address]Dr. Farhat Leal Albumin/Globulin [Mass ratio] 0.4 {ratio} Normal [facility] Comment on above: Performed By: #### B LADLE POURER, CMP, CRP ####[facility] Jolihrngot7916 [place] [address]Dr. Farhat Leal ALP [Catalytic activity/Vol] 94 U/L Normal 46-116 [facility] Comment on above: Performed By: #### B LADLE POURER, CMP, CRP ####[facility] Tmuyxpsmzw5105 [place] [address]Dr. Farhat Leal ALT [Catalytic activity/Vol] 49 U/L Normal 16-63 [facility] Comment on above: Performed By: #### B LADLE POURER, CMP, CRP ####[facility] Ziiqujswif9614 [place] [address]Dr. Farhat Leal Anion gap [Moles/Vol] 12.5 mmol/L Normal [facility] Comment on above: Performed By: #### B LADLE POURER, CMP, CRP ####[facility] Ztnqerslyi4835 [place] [address]Dr. Farhat Leal AST [Catalytic activity/Vol] 102 U/L Critically high 15-37 [facility] Comment on above: Performed By: #### B LADLE POURER, CMP, CRP ####[facility] Doeyzivsyb3480 [place] [address]Dr. Farhat Leal Bilirubin [Mass/Vol] 0.8 mg/dL Normal 0.2-1.0 [facility] Comment on above: Performed By: #### B LADLE POURER, CMP, CRP ####[facility] Jcqnscgatn1803 [place] [address]Dr. Farhat Leal Calcium [Mass/Vol] 8.4 mg/dL Critically low 8.5-10.1 [facility] Comment on above: Performed By: #### B LADLE POURER, CMP, CRP ####[facility] Vpegrxrnri9529 [place] [address]Dr. Farhat Leal Chloride [Moles/Vol] 96 mmol/L Critically low 98-107 [facility] Comment on above: Performed By: #### B LADLE POURER, CMP, CRP ####[facility] Coeqvxgfif8826 [place] [address]Dr. Farhat Leal CO2 [Moles/Vol] 24.8 mmol/L Normal 21.0-32.0 [facility] Comment on above: Performed By: #### B LADLE POURER, CMP, CRP ####[facility] Zshocykdmm2439[address] [place], [place] [address]Dr. Farhat Leal Creatinine [Mass/Vol] 1.36 mg/dL Critically high 0.70-1.30 [facility] Comment on above: Performed By: #### B LADLE POURER, CMP, CRP ####[facility] Vzsgonzfaq635[address] [place], [place] [address]Dr. Madelynlorri Elvis EGFR-AF EMIRATI >60 Normal >=60 [facility] Comment on above: Performed By: #### B LADLE POURER, CMP, CRP ####[facility] Smeoeakmxs[address] [place], [place] [address]Dr. Farhat Leal EGFR-NON AF EMIRATI 51 mL/min/1.73m2 Critically low >=60 [facility] Comment on above: Performed By: #### B LADLE POURER, CMP, CRP ####[facility] Vhdscbssca395[address] [place], [place] [address]Dr. Farhat Leal Globulin (S) [Mass/Vol] 4.1 g/dL Normal [facility] Comment on above: Performed By: #### B LADLE POURER, CMP, CRP ####[facility] Gsfdfxswjp3131 [place] [address]Dr. Farhat Leal Glucose [Mass/Vol] 204 mg/dL Critically high 74-106 [facility] Comment on above: Performed By: #### B LADLE POURER, CMP, CRP ####[facility] Auxxzwmgvd652[address] [place], [place] [address]Dr. Farhat Leal Potassium [Moles/Vol] 4.3 mmol/L Normal 3.5-5.1 [facility] Comment on above: Performed By: #### B LADLE POURER, CMP, CRP ####[facility] Homyrotlyl648[address] [place], [place] [address]Dr. Farhat Leal Protein [Mass/Vol] 5.7 g/dL Critically low 6.4-8.2 [facility] Comment on above: Performed By: #### B LADLE POURER, CMP, CRP ####[facility] Zmgxzjmbdr317[address] [place], [place] [address]Dr. Farhat Leal Sodium [Moles/Vol] 129 mmol/L Critically low 136-145 [facility] Comment on above: Performed By: #### B LADLE POURER, CMP, CRP ####[facility] Kofyadqtgv9[address] [place], [place] [address]Dr. Farhat Leal Urea nitrogen [Mass/Vol] 41.0 mg/dL Critically high 7.0-18.0 [facility] Comment on above: Performed By: #### B LADLE POURER, CMP, CRP ####[facility] Jhbovprsts9[address] [place], [place] [address]Dr. Farhat Leal Urea nitrogen/Creatinine [Mass ratio] 30.1 mg/mg Normal [facility] Comment on above: Performed By: #### B LADLE POURER, CMP, CRP ####[facility] Fpvohkgfrb5423[address] [place], [place] [address]Dr. Farhat Leal PROTIMEon 11-24-2021 INR Coag (PPP) [Relative time] 2.20 {INR} Normal [facility] Comment on above: Performed By: #### P T ####[facility] Quzbqbcpyr1325[address] [place], [place] [address]Dr. Farhat Leal INR GUIDELINES SEE BELOW Normal [facility] Comment on above: Result Comment: MALINA RED INR: 2.0 - 3.0 CONDITIONS NOT LISTED BELOW 2.5 - 3.5 FOR PROSTHETIC HEART VALVE REPLACEMENT 2.5 - 3.5 RECURRENT THROMBOSIS Performed By: #### P T ####[facility] Tbpfkfhtnq24[address] [place], [place] [address]Dr. Farhat Leal PT Coag (PPP) [Time] 22.6 s Critically high 9.0-11.6 [facility] Comment on above: Performed By: #### P T ####[facility] Thchuxpdwp9812[address] [place], [place] [address]Dr. Farhat Leal [facility] SED RATE 80 mm/hr Critically high <=20 [facility] Comment on above: Performed By: #### S EDR ####[facility] Opjcowmufm020[address] [place], [place] [address]Dr. Farhat Leal BLOOD CULTURE ID PANELon A. baumannii Not detected Normal NOT DETECTED [facility] Comment on above: Performed By: #### B CID2 ####[facility] Avjseqqfha057[address] [place], [place] [address]Dr. Farhat Leal Bacteriodes fragilis Not detected Normal NOT DETECTED [facility] Comment on above: Performed By: #### B CID2 ####[facility] Guuklkmmze4424[address] [place], [place] [address]Dr. Farhat Leal BCID CONTROLS PASSED Normal [facility] Comment on above: Performed By: #### B CID2 ####[facility] Pwikacfdxx8[address] [place], [place] [address]Dr. Farhat Leal BCIDBTHD BLOOD CULTURE BOTTLE INFORMATION Normal [facility] Comment on above: Performed By: #### B CID2 ####[facility] Gwrgcxuihr94[address] [place], [place] [address]Dr. Farhat Leal BCIDHD1 ANTIMICROBIAL RESISTANCE GENES Normal [facility] Comment on above: Performed By: #### B CID2 ####[facility] Nnrdgndrgd[address] [place], [place] [address]Dr. Fahrat Leal BCIDHD2 SEE BELOW Normal [facility] Comment on above: Result Comment: Note : Antimicrobial resitance can occur via multiple mechanisms. A Not Detected result for the [employer] antomicrobial resistance gene assays does not indicate antimicrobial susceptibility. Subculturing is required for species identification and susceptibility testing of isolates. Performed By: #### B CID2 ####[facility] Dxjnqpwmpq107[address] [place], [place] [address]Dr. Farhat Leal BCIDHD3 Positive Normal [facility] Comment on above: Performed By: #### B CID2 ####[facility] Avhitpziot[address] [place] [address]Dr. Yilorri Leal BCIDHD4 Negative Normal [facility] Comment on above: Performed By: #### B CID2 ####[facility] Ubmthcfijn[address] [place] [address]Dr. Farhat Leal BCIDHD5 YEAST Normal [facility] Comment on above: Performed By: #### B CID2 ####[facility] Ligybdiovq7[address] [place] [address]Dr. Farhat Leal Bottle Set: Set 1 Normal [facility] Comment on above: Performed By: #### B CID2 ####[facility] Sqjmqosovf[address] [place], [place] [address]Dr. Farhat Leal Bottle: Aerobic Normal [facility] Comment on above: Performed By: #### B CID2 ####[facility] Trkndmhutg[address] [place], [place] [address]Dr. Yilorri Leal C. neoformans/gattii Not detected Normal NOT DETECTED [facility] Comment on above: Performed By: #### B CID2 ####[facility] Plifqbtjcx717[address] [place], [place] [address]Dr. Yilorri [employer] Disha albicans Not detected Normal NOT DETECTED [facility] Comment on above: Performed By: #### B CID2 ####[facility] [facility] Xdwdgahulf[address] [place], [place] [address]Dr. Yilorri Leal Disha auris Not detected Normal NOT DETECTED [facility] Comment on above: Performed By: #### B CID2 ####[facility] Cnfitlfwna[address] [place] [address]Dr. Yilorri Leal Disha glabrata Not detected Normal NOT DETECTED [facility] Comment on above: Performed By: #### B CID2 ####[facility] Gbvbfucyra0141 [place] [address]Dr. Yilorri Leal Disha Krusei Not detected Normal NOT DETECTED The [facility] Comment on above: Performed By: #### B CID2 ####[facility] Moquekhbfp3786 [place] [address]Dr. Yilan Leal Disha Parapsilosis Not detected Normal NOT DETECTED [facility] Comment on above: Performed By: #### B CID2 ####[facility] Eynxzeltri[address] [place], [place] [address]Dr. Yilan Leal Disha Tropicalis Not detected Normal NOT DETECTED [facility] Comment on above: Performed By: #### B CID2 ####[facility] Ragotdklvj[address] [place], [place] [address]Dr. Farhat Leal CTX-M Resistant Gene Not Applicable Normal NOT DETECTE D [facility] Comment on above: Performed By: #### B CID2 ####[facility] Ikocglmksk[address] [place], [place] [address]Dr. Yilorri Leal E. Cloacae complex Not detected Normal NOT DETECTED [facility] Comment on above: Performed By: #### B CID2 ####[facility] Ffupygukex9[address] [place], [place] [address]Dr. Yilan Leal E. faecalis Not detected Normal NOT DETECTED The [facility] Comment on above: Performed By: #### B CID2 ####[facility] Evmejeynat[address] [place], [place] [address]Dr. Farhat Leal E. faecium Not detected Normal NOT DETECTED The [facility] Comment on above: Performed By: #### B CID2 ####[facility] Znmixhnumw016[address] [place], [place] [address]Dr. Yilan Leal Enterobacteriaceae Not detected Normal NOT DETECTED [facility] Comment on above: Performed By: #### B CID2 ####[facility] Qnnuonphmo603[address] [place], [place] [address]Dr. Yilan Leal Escherichia coli Not detected Normal NOT DETECTED [facility] Comment on above: Performed By: #### B CID2 ####[facility] Jzkgcgrblz[address] [place], [place] [address]Dr. Yilan Leal H. influenzae Not detected Normal NOT DETECTED [facility] Comment on above: Performed By: #### B CID2 ####[facility] Nukobyegch2365 [place] [address]Dr. Farhat Leal IMP Resistant Gene Not Applicable Normal NOT DETECTED [facility] Comment on above: Performed By: #### B CID2 ####[facility] Ogmsmmnsgb3537[address] [place], [place] [address]Dr. Farhat Leal K. oxytoca Not detected Normal NOT DETECTED The [facility] Comment on above: Performed By: #### B CID2 ####[facility] Vbzdedtgyb268[address] [place], [place] [address]Dr. Farhat Leal K. pneumoniae Not detected Normal NOT DETECTED [facility] Comment on above: Performed By: #### B CID2 ####[facility] Tsyctxowgk6[address] [place], [place] [address]Dr. Farhat Leal Klebsiella aerogenes Not detected Normal NOT DETECTED [facility] Comment on above: Performed By: #### B CID2 ####[facility] Fgzsiybtum527[address] [place], [place] [address]Dr. Farhat Leal KPC Resistant Gene Not Applicable Normal NOT DETECTED [facility] Comment on above: Performed By: #### B CID2 ####[facility] Iupvorfhyc128[address] [place], [place] [address]Dr. Farhat Leal List. monocytogenes Not detected Normal NOT DETECTED [facility] Comment on above: Performed By: #### B CID2 ####[facility] Vbrkfgetxd399[address] [place], [place] [address]Dr. Farhat Leal Mcr-1 Resistant Gene Not Applicable Normal NOT DETECTE D [facility] Comment on above: Performed By: #### B CID2 ####[facility] Vmfmozmhbe444[address] [place], [place] [address]Dr. Farhat Leal mecA/C Not Applicable Normal NOT DETECTED [facility] Comment on above: Performed By: #### B CID2 ####[facility] Dtfksyucmi311[address] [place], [place] [address]Dr. Farhat Leal mecA/C MREJ Detected Abnormal NOT DETECTED The [facility] Comment on above: Performed By: #### B CID2 ####[facility] Cijkgxxpkq538[address] [place], [place] [address]Dr. Farhat Leal N. meningitidis Not detected Normal NOT DETECTED The [facility] Comment on above: Performed By: #### B CID2 ####[facility] Nabfpfqimj4313[address] [place], [place] [address]Dr. Farhat Leal NDM Resistant Gene Not Applicable Normal NOT DETECTED [facility] Comment on above: Performed By: #### B CID2 ####[facility] Zwmsotstan400[address] [place], [place] [address]Dr. Farhat Leal Oxa-48-like Not Applicable Normal NOT DETECTED [facility] Comment on above: Performed By: #### B CID2 ####[facility] Spnczebvxx9417[address] [place], [place] [address]Dr. Farhat Leal Proteus Not detected Normal NOT DETECTED The [facility] Comment on above: Performed By: #### B CID2 ####[facility] Gprklzxcpi9314[address] [place], [place] [address]Dr. Farhat Leal Pseud. aeruginosa Not detected Normal NOT DETECTED [facility] Comment on above: Performed By: #### B CID2 ####[facility] Miryuvuckx[address] [place], [place] [address]Dr. Farhat Leal S. maltophilia Not detected Normal NOT DETECTED The [facility] Comment on above: Performed By: #### B CID2 ####[facility] Drweejgqwq969[address] [place], [place] [address]Dr. Farhat Leal Salmonella Not detected Normal NOT DETECTED The [facility] Comment on above: Performed By: #### B CID2 ####[facility] Wjnphilpbv613[address] [place], [place] [address]Dr. Farhat Leal Seratia marcescens Not detected Normal NOT DETECTED [facility] Comment on above: Performed By: #### B CID2 ####[facility] Aifvjxsnyf6224[address] [place], [place] [address]Dr. Farhat Leal Site: Rt Hand Normal [facility] Comment on above: Performed By: #### B CID2 ####[facility] Ukgecmzeyf108[address] [place], [place] [address]Dr. Farhat Leal Staph. aureus Detected Abnormal NOT DETECTED [facility] Comment on above: Performed By: #### B CID2 ####[facility] Mogqmvpbzu4262 [place] [address]Dr. Farhat Leal Staph. epidermidis Not detected Normal NOT DETECTED [facility] Comment on above: Performed By: #### B CID2 ####[facility] Iuzxbogelc[address] [place], [place] [address]Dr. Farhat Leal Staph. lugdunensis Not detected Normal NOT DETECTED [facility] Comment on above: Performed By: #### B CID2 ####[facility] Weyqhddpbp[address] [place], [place] [address]Dr. Farhat Leal Staphylococcus Detected Abnormal NOT DETECTED [facility] Comment on above: Performed By: #### B CID2 ####[facility] Igilxkqnya078[address] [place], [place] [address]Dr. Farhat Leal Strep. agalactiae Not detected Normal NOT DETECTED [facility] Comment on above: Performed By: #### B CID2 ####[facility] Lvheylmfxj8724[address] [place], [place] [address]Dr. Farhat Leal Strep. pneumoniae Not detected Normal NOT DETECTED [facility] Comment on above: Performed By: #### B CID2 ####[facility] Emajqcopvu235[address] [place], [place] [address]Dr. Madelynlorri Leal Strep. pyogenes Not detected Normal NOT DETECTED The [facility] Comment on above: Performed By: #### B CID2 ####[facility] Dbxfujgqud466[address] [place], [place] [address]Dr. Farhat Leal Streptococcus Not detected Normal NOT DETECTED [facility] Comment on above: Performed By: #### B CID2 ####[facility] Ocwijiqctx389[address] [place], [place] [address]Dr. Farhat Leal Teodoro/B Resist. Gene Not Applicable Normal NOT DETECTED [facility] Comment on above: Performed By: #### B CID2 ####[facility] Wamosemgkc159[address] [place], [place] [address]Dr. Farhat Leal VIM Resistant Gene Not Applicable Normal NOT DETECTED [facility] Comment on above: Performed By: #### B CID2 ####[facility] Fkgtkxoytu5099 [place] [address]Dr. Farhat Leal BNPon 11-23-2021 Natriuretic peptide B (Bld) [Mass/Vol] 03498.0 pg/mL Critically high <=1,800.0 [facility] Comment on above: Performed By: #### C MP, CMADM, BNP ####[facility] Ibqnqemfeb3[address] [place] [address]Dr. Farhat Leal CARDIAC AMANDA ADMITon 022 CK [Catalytic activity/Vol] 41 U/L Normal 39-308 [facility] Comment on above: Performed By: #### C MP, CMADM, BNP ####[facility] Nfswbzfojo3293 [place] [address]Dr. Farhat Leal CK.MB [Mass/Vol] 0.98 ng/mL Normal <=3.60 [facility] Comment on above: Performed By: #### C MP, CMADM, BNP ####[facility] Aebpkcbrkm208[address] [place], [place] [address]Dr. Farhat Leal HSTROP 30.1 pg/mL Normal 4.0-76.1 [facility] Comment on above: Result Comment: CUT- OFF POINTS HAVE BEEN ESTABLISHED BASED ON THE FOURTH UNIVERSAL DEFINITIONS OF MYOCARDIALINFARCTION. THE UPPER REFERENCE LIMIT (URL) OF TROPONIN, DEFINED THE 99TH PERCENTILE OFcTnI DISTRIBUTION IN A REFERENCE POPULATION, HAS BEEN CONFIRMED THE DECISION THRESHOLDFOR SD DIAGNOSIS. Performed By: #### C MP, CMADM, BNP ####[facility] Ltdsljwezn[address] [place] [address]Dr. Farhat Leal VALERIA 160 ng/mL Critically high 16-96 [facility] Comment on above: Performed By: #### C MP, CMADM, BNP ####[facility] Razweazhvl7774 [place] [address]Dr. Farhat Leal CBC AUTO DIFFon 11-23-2021 BASO # 0.0 103/ul Normal 0.0-0.1 [facility] Comment on above: Performed By: #### C BC ####[facility] Gghswhliwd6342 [place] [address]Dr. Farhat Leal Basophils/100 WBC (Bld) 0.2 % Normal 0.2-2.0 [facility] Comment on above: Performed By: #### C BC ####[facility] Dggibepqrm16[address] [place], [place] [address]Dr. Farhat Leal EO # 0.0 103/ul Normal 0.0-0.7 [facility] Comment on above: Performed By: #### C BC ####[facility] Rcyzjpuyfu794[address] [place], [place] [address]Dr. Farhat Leal Eosinophils/100 WBC (Bld) 0.1 % Critically low 0.9-7.0 [facility] Comment on above: Performed By: #### C BC ####[facility] Sobtcuaoru[address] [place], [place] [address]Dr. Farhat Leal Erythrocyte distribution width (RBC) [Ratio] 13.4 % Normal 11.0-15.0 [facility] Comment on above: Performed By: #### C BC ####[facility] Zymsvysltg[address] [place], [place] [address]Dr. Farhat Leal Hematocrit (Bld) [Volume fraction] 31.6 % Critically low 42.0-54.0 [facility] Comment on above: Performed By: #### C BC ####[facility] Mszkkliixf76[address] [place], [place] [address]Dr. Farhat Leal Hemoglobin (Bld) [Mass/Vol] 10.4 g/dL Critically low 14.0-18.0 [facility] Comment on above: Performed By: #### C BC ####[facility] Cjcyekugwt899[address] [place], [place] [address]Dr. Farhat Leal IG # 0.11 10e3/ul Critically high 0.00-0.03 [facility] Comment on above: Performed By: #### C BC ####[facility] Vcajpidsmp[address] [place], [place] [address]Dr. Farhat Leal IG % 0.7 % Critically high 0.0-0.5 [facility] Comment on above: Performed By: #### C BC ####[facility] Rajtmggdut60[address] [place], [place] [address]Od. Farhat Elvis LYMPH # 0.5 103/ul Critically low 1.2-3.8 The [facility] Comment on above: Performed By: #### C BC ####[facility] Uwgqrtiuum0508 [place], [place] [address]Lu. Farhat Elvis Lymphocytes/100 WBC (Bld) 2.8 % Critically low 20.5-60.0 [facility] Comment on above: Performed By: #### C BC ####[facility] Aqjfdepbyf84[address] [place] [id number]. Madelynlorri Leal MANUAL DIFF REQ NO Normal [facility] Comment on above: Performed By: #### C BC ####[facility] Tiasxnfgqr0427 [place] [id number]. Farhat Elvis MCH (RBC) [Entitic mass] 29.8 pg Normal 25.9-34.0 [facility] Comment on above: Performed By: #### C BC ####[facility] Aosmlgnssy2941 [place] [id number]. Farhat Elvis MCHC (RBC) [Mass/Vol] 32.9 g/dL Normal 29.9-35.2 [facility] Comment on above: Performed By: #### C BC ####[facility] Lzvjxhsjkk6498 [place] [id number]. Madelynlorri Elvis MCV (RBC) [Entitic vol] 90.5 fL Normal 80.0-94.0 [facility] Comment on above: Performed By: #### C BC ####[facility] Geeygfmiqz4214 [place] [id number]. Farhat Elvis MONO # 1.3 103/ul Critically high 0.3-0.8 [facility] Comment on above: Performed By: #### C BC ####[facility] Agnifwezqm6343 [place] [id number]. Madelynlorri Leal Monocytes/100 WBC (Bld) 8.3 % Normal 1.7-12.0 [facility] Comment on above: Performed By: #### C BC ####[facility] Ukuuauxtyh6901 [place], [place] [address]Bk. Farhat Leal NEUT # 13.9 103/ul Critically high 1.4-6.5 [facility] Comment on above: Performed By: #### C BC ####[facility] Ahsnwbyudf5418 [place], [place] [address]Mf. Farhat Leal Neutrophils/100 WBC (Bld) 87.9 % Critically high 43.0-75.0 [facility] Comment on above: Performed By: #### C BC ####[facility] Mvwbgmvloy3297 [place], [place] [address]Tj. Farhat Leal Platelet mean volume (Bld) [Entitic vol] 9.3 fL Critically low 9.5-13.5 [facility] Comment on above: Performed By: #### C BC ####[facility] Uxgziobnbs7201 [place] [id number]. Farhat Leal PLT 390 103/ul Normal 150-450 [facility] Comment on above: Performed By: #### C BC ####[facility] Anreuyrwyb9554 [place], [place] [address]Gw. Farhat Leal RBC 3.49 106/ul Critically low 4.70-6.10 [facility] Comment on above: Performed By: #### C BC ####[facility] Jpvdznaomm5893 [place], [place] [address]Pe. Farhat Leal WBC 15.9 103/ul Critically high 4.0-11.0 [facility] Comment on above: Performed By: #### C BC ####[facility] Mykbgfyqvp2213 [place], [place] [address]Go. Farhat Leal CT HEAD WO CONon 11-23-2021 CT HEAD WO CON Normal [facility] CULTURE BLOODon 11-23-2021 Microscopic examination of blood, culture Culture Observations: NO GROWTH AT 5 DAYS. Normal [facility] Comment on above: Performed By: #### B LDCX2 ####[facility] Sevskmvkom1782 [place] [id number]. Farhat Leal Covid-19 PCR (CVDTBH)on SARS-CoV-2 (COVID-19) RNA JOSH+probe Ql (Unsp spec) Not detected Normal NOT DETECTED [facility] Comment on above: Result Comment: When [...] for this test is supported by the [place] of [employer] and Human Service's declaration that [...] be used). Performed By: #### C VDTBH ####[facility] Nhyiomxmgz2193 [place] [address]Dr. Farhat Leal LACTATE/LACTIC ACIDon 2021 Lactate [Moles/Vol] 1.3 mmol/L Normal 0.4-1.9 [facility] Comment on above: Performed By: #### L ACT ####[facility] Jeksvmvrfr[address] [place], [place] [address]DrSkylar Leal Lactate [Moles/Vol] 1.3 mmol/L Normal 0.4-1.9 [facility] Comment on above: Performed By: #### L ACT ####[facility] Hhzgotkqum14[address] [place], [place] [address]DrSkylar Leal POINT OF CARE GLUCOSEon Glucose [Mass/Vol] 252 mg/dL Critically high 74-106 [facility] Comment on above: Performed By: #### P OCGLUC ####[facility] Btfyoymklv4928 [place] [address]DrSkylar Leal PROF 14(COMP METB)on 022 Albumin [Mass/Vol] 1.6 g/dL Critically low 3.4-5.0 [facility] Comment on above: Performed By: #### C MP CMADM, BNP ####[facility] Lyydalelbd6781 [place] [address]Dr. Farhat Leal Albumin/Globulin [Mass ratio] 0.4 {ratio} Normal [facility] Comment on above: Performed By: #### C MP, CMADM, BNP ####[facility] Yvbeaxmtbr4994 [place] [address]Dr. Farhat Elvis ALP [Catalytic activity/Vol] 98 U/L Normal 46-116 [facility] Comment on above: Performed By: #### C MP, CMADM, BNP ####[facility] Sfbupgnztk0191 [place] [address]Dr. Farhat Leal ALT [Catalytic activity/Vol] 52 U/L Normal 16-63 [facility] Comment on above: Performed By: #### C CARA CMADM, BNP ####[facility] Mpkmxwtmsm1992 [place] [address]Dr. Farhat Leal Anion gap [Moles/Vol] 9.8 mmol/L Normal [facility] Comment on above: Performed By: #### C MP CMADM, BNP ####[facility] Hqlrxigfnk6282 [place] [address]Dr. Farhat Leal AST [Catalytic activity/Vol] 122 U/L Critically high 15-37 [facility] Comment on above: Performed By: #### C MP, CMADM, BNP ####[facility] Newrqfeuwx5747 [place] [address]Dr. Farhat Leal Bilirubin [Mass/Vol] 0.7 mg/dL Normal 0.2-1.0 [facility] Comment on above: Performed By: #### C MP, CMADM, BNP ####[facility] Xbyusiyfux4533 [place] [address]Dr. Farhat Leal Calcium [Mass/Vol] 8.6 mg/dL Normal 8.5-10.1 [facility] Comment on above: Performed By: #### C MP, CMADM, BNP ####[facility] Nfqvfwdxce5186 [place] [address]Dr. Farhat Leal Chloride [Moles/Vol] 95 mmol/L Critically low 98-107 [facility] Comment on above: Performed By: #### C MP, CMADM, BNP ####[facility] Dpeciglanz3480 [place] [address]Dr. Farhat Leal CO2 [Moles/Vol] 29.6 mmol/L Normal 21.0-32.0 [facility] Comment on above: Performed By: #### C MP, CMADM, BNP ####[facility] Cwsfdumcfz7212 [place] [address]Dr. Farhat Leal Creatinine [Mass/Vol] 1.49 mg/dL Critically high 0.70-1.30 [facility] Comment on above: Performed By: #### C MP, CMADM, BNP ####[facility] Yirzvussez[address] [place], [place] [address]Dr. Madelynlorri Elvis EGFR-AF EMIRATI 55 mL/min/1.73m2 Critically low >=60 [facility] Comment on above: Performed By: #### C MP, CMADM, BNP ####[facility] Kzluwqcymb[address] [place], [place] [address]Dr. Farhat Elvis EGFR-NON AF EMIRATI 46 mL/min/1.73m2 Critically low >=60 [facility] Comment on above: Performed By: #### C MP, CMADM, BNP ####[facility] Eorawlxwcr5353 [place] [address]Dr. Farhat Leal Globulin (S) [Mass/Vol] 4.3 g/dL Normal [facility] Comment on above: Performed By: #### C MP, CMADM, BNP ####[facility] Aqqdqldxax9419 [place] [address]Dr. Madelynlorri Elvis Glucose [Mass/Vol] 213 mg/dL Critically high 74-106 [facility] Comment on above: Performed By: #### C MP, CMADM, BNP ####[facility] Pznpbzmmcw5176 [place] [address]Dr. Farhat Leal Potassium [Moles/Vol] 4.4 mmol/L Normal 3.5-5.1 [facility] Comment on above: Performed By: #### C FATMATA MARROQUINDM, BNP ####[facility] Puckxtgojq[address] [place] [address]Dr. Madelynlorri Leal Protein [Mass/Vol] 5.9 g/dL Critically low 6.4-8.2 [facility] Comment on above: Performed By: #### C FATMATA MARROQUINDM, BNP ####[facility] Vbmklwgpxz2803 [place] [address]Dr. Madelynlorri Leal Sodium [Moles/Vol] 130 mmol/L Critically low 136-145 [facility] Comment on above: Performed By: #### C ANTWAN MARROQUIN, BNP ####[facility] Nksokcpzdd9669 [place] [address]Dr. Farhat Leal Urea nitrogen [Mass/Vol] 46.0 mg/dL Critically high 7.0-18.0 [facility] Comment on above: Performed By: #### C FATMATA MARROQUINDM, BNP ####[facility] Dmtwteefma3446 [place] [address]Dr. Farhat Leal Urea nitrogen/Creatinine [Mass ratio] 30.9 mg/mg Normal [facility] Comment on above: Performed By: #### C ANTWAN MARROQUIN, BNP ####[facility] Psxthgpxzv9248 [place] [address]Dr. Farhat Leal PROTIMEon 11-23-2021 INR Coag (PPP) [Relative time] 2.55 {INR} Normal [facility] Comment on above: Performed By: #### P TT, PT ####[facility] Onvvpdcycg1867 [place] [address]Dr. Farhat Leal INR GUIDELINES SEE BELOW Normal [facility] Comment on above: Result Comment: MALINA RED INR: 2.0 - 3.0 CONDITIONS NOT LISTED BELOW 2.5 - 3.5 FOR PROSTHETIC HEART VALVE REPLACEMENT 2.5 - 3.5 RECURRENT THROMBOSIS Performed By: #### P TT, PT ####[facility] Dbfnkcrawr[address] [place], [place] [address]Dr. Farhat Elvis PT Coag (PPP) [Time] 25.9 s Critically high 9.0-11.6 [facility] Comment on above: Performed By: #### P TT, PT ####[facility] Ysukuarzve[address] [place], [place] [address]Dr. Farhat Leal PTTon 11-23-2021 aPTT Coag (Bld) [Time] 39.9 s Critically high 22.3-36. 2 [facility] Comment on above: Performed By: #### P TT, PT ####[facility] Raiwhnawjs[address] [place], [place] [address]Dr. Farhat Elvis XR CHEST 1 Von 11-23-2021 XR CHEST 1 V Normal [facility] XR HEEL RT 2Von 11-23-2021 XR HEEL RT 2V Normal [facility] XR FOOT RT MIN 3 VIEWSon XR FOOT RT MIN 3 VIEWS Normal [facility] US ARTERY LEG RTon 2 US ARTERY LEG RT Normal [facility] CBC AUTO DIFFon 09-24-2021 BASO # 0.1 103/ul Normal 0.0-0.1 [facility] Comment on above: Performed By: #### C BC ####[facility] Hhfjkkesbd9[address] [place], [place] [address]Dr. Farhat Leal Basophils/100 WBC (Bld) 0.7 % Normal 0.2-2.0 [facility] Comment on above: Performed By: #### C BC ####[facility] Ckpmlgdwro[address] [place], [place] [address]Dr. Farhat Leal EO # 0.3 103/ul Normal 0.0-0.7 [facility] Comment on above: Performed By: #### C BC ####[facility] Ojdbhcezop[address] [place], [place] [address]Dr. Farhat Leal Eosinophils/100 WBC (Bld) 3.9 % Normal 0.9-7.0 [facility] Comment on above: Performed By: #### C BC ####[facility] Irfjemjpoj419[address] [place], [place] [address]Dr. Farhat Leal Erythrocyte distribution width (RBC) [Ratio] 12.6 % Normal 11.0-15.0 [facility] Comment on above: Performed By: #### C BC ####[facility] Z[address]swriamg[address] [place] [address]Dr. Farhat Leal Hematocrit (Bld) [Volume fraction] 38.9 % Critically low 42.0-54.0 [facility] Comment on above: Performed By: #### C BC ####[facility] Pllsopmpwb[address] [place], [place] [address]Dr. Madelynlorri Leal Hemoglobin (Bld) [Mass/Vol] 12.8 g/dL Critically low 14.0-18.0 [facility] Comment on above: Performed By: #### C BC ####[facility] Pmamufydqy[address] [place], [place] [address]Dr. Farhat Leal IG # 0.10 10e3/ul Critically high 0.00-0.03 [facility] Comment on above: Performed By: #### C BC ####[facility] Hzegiblwvi317[address] [place], [place] [address]Dr. Madelynlorri Leal IG % 1.2 % Critically high 0.0-0.5 [facility] Comment on above: Performed By: #### C BC ####[facility] Briddbjqme350[address] [place], [place] [address]Dr. Farhat Leal LYMPH # 2.1 103/ul Normal 1.2-3.8 [facility] Comment on above: Performed By: #### C BC ####[facility] Pnxkvbargv[address] [place], [place] [address]DrSkylar Leal Lymphocytes/100 WBC (Bld) 25.9 % Normal 20.5-60.0 [facility] Comment on above: Performed By: #### C BC ####[facility] Ljwevpwurm[address] [place], [place] [address]DrSkylar Leal MANUAL DIFF REQ NO Normal [facility] Comment on above: Performed By: #### C BC ####[facility] Ftiwbdzxol57[address] [place], [place] [address]DrSkylar Leal MCH (RBC) [Entitic mass] 31.1 pg Normal 25.9-34.0 [facility] Comment on above: Performed By: #### C BC ####[facility] Zwxhdhcsml1475 [place] [id number]. Farhat Leal MCHC (RBC) [Mass/Vol] 32.9 g/dL Normal 29.9-35.2 [facility] Comment on above: Performed By: #### C BC ####[facility] Vqqpfhqtzl0491 [place] [id number]. Farhat Leal MCV (RBC) [Entitic vol] 94.6 fL Critically high 80.0-94.0 [facility] Comment on above: Performed By: #### C BC ####[facility] Meitvzeddi4798 [place] [address]DrSkylar Farhat Leal MONO # 1.2 103/ul Critically high 0.3-0.8 [facility] Comment on above: Performed By: #### C BC ####[facility] Ppeainugra[address] [place], [place] [address]Dr. Farhat Leal Monocytes/100 WBC (Bld) 14.1 % Critically high 1.7-12.0 [facility] Comment on above: Performed By: #### C BC ####[facility] Pjtyvcwmmd[address] [place], [place] [address]DrSkylar Farhat Leal NEUT # 4.4 103/ul Normal 1.4-6.5 [facility] Comment on above: Performed By: #### C BC ####[facility] Ggncfvjgel6806 [place] [address]DrSkylar Farhat Elvis Neutrophils/100 WBC (Bld) 54.2 % Normal 43.0-75.0 [facility] Comment on above: Performed By: #### C BC ####[facility] Syzigfzwlf[address] [place], [place] [id number] Farhat Leal Platelet mean volume (Bld) [Entitic vol] 9.9 fL Normal 9.5-13.5 [facility] Comment on above: Performed By: #### C BC ####[facility] Kucgtfmehw4[address] [place] [id number]. Farhat Elvis PLT 224 103/ul Normal 150-450 [facility] Comment on above: Performed By: #### C BC ####[facility] Uwoymnzvft0273 [place] [id number]. Farhat Leal RBC 4.11 106/ul Critically low 4.70-6.10 [facility] Comment on above: Performed By: #### C BC ####[facility] Npfpxakolx4144 [place] [id number]. Farhat Elvis WBC 8.2 103/ul Normal 4.0-11.0 [facility] Comment on above: Performed By: #### C BC ####[facility] Bxnofyjsem8171 [place] [address]Dr. Madelynlorri Leal PROF CHEM 8 (BAS METB)on Anion gap [Moles/Vol] 9.6 mmol/L Normal [facility] Comment on above: Performed By: #### B MP ####[facility] Uigbyqfkaf6508 [place] [address]Dr. Madelynlorri Leal Calcium [Mass/Vol] 8.6 mg/dL Normal 8.5-10.1 [facility] Comment on above: Performed By: #### B MP ####[facility] Zzihebgvxl4654 [place] [address]Dr. Madelynlorri Leal Chloride [Moles/Vol] 94 mmol/L Critically low 98-107 [facility] Comment on above: Performed By: #### B MP ####[facility] Ooqnjgpojs8917 [place] [address]Dr. Farhat Leal CO2 [Moles/Vol] 28.1 mmol/L Normal 21.0-32.0 [facility] Comment on above: Performed By: #### B MP ####[facility] Dvhcveymeq8312 [place] [address]Dr. Farhat Leal Creatinine [Mass/Vol] 1.91 mg/dL Critically high 0.70-1.30 [facility] Comment on above: Performed By: #### B MP ####[facility] Vjtjbszzei0313 [place] [phone]. Farhat Elvis EGFR-AF EMIRATI 42 mL/min/1.73m2 Critically low >=60 [facility] Comment on above: Performed By: #### B MP ####[facility] Flzuibntmk7679 [place] [phone]. Farhat Elvis EGFR-NON AF EMIRATI 34 mL/min/1.73m2 Critically low >=60 [facility] Comment on above: Performed By: #### B MP ####[facility] Iortnvjwnd2267 [place] [phone]. Farhat Leal Glucose [Mass/Vol] 314 mg/dL Critically high 74-106 [facility] Comment on above: Performed By: #### B MP ####[facility] Xnekxeszts168[address] [place], [place] [address]Dr. Farhat Leal Potassium [Moles/Vol] 4.7 mmol/L Normal 3.5-5.1 [facility] Comment on above: Performed By: #### B MP ####[facility] Ifdrxtkrsk6625[address] [place], [place] [address]Dr. Farhat Leal Sodium [Moles/Vol] 127 mmol/L Critically low 136-145 [facility] Comment on above: Performed By: #### B MP ####[facility] Hakvxzwefj360[address] [place], [place] [address]Dr. Farhat Leal Urea nitrogen [Mass/Vol] 79.0 mg/dL Critically high 7.0-18.0 [facility] Comment on above: Result Comment: repe ated Performed By: #### B MP ####[facility] Fweiuwxnli5567 [place] [address]Dr. Farhat Leal Urea nitrogen/Creatinine [Mass ratio] 41.4 mg/mg Normal [facility] Comment on above: Performed By: #### B MP ####[facility] Tmziihmyja5636[address] [place], [place] [address]Dr. Farhat Leal PTT HEPARIN MONITORon 2021 aPTT Coag (Bld) [Time] 42.7 s Normal 39.5-54.2 [facility] Comment on above: Performed By: #### P TTHEP ####[facility] Yhxjiubuvh26[address] [place] [address]Dr. Farhat Leal aPTT Coag (Bld) [Time] 56.7 s Critically high 39.5-54. 2 [facility] Comment on above: Performed By: #### P TTHEP ####[facility] Qlozerexfb6901[address] [place], [place] [address]Dr. Farhat Leal CBC AUTO DIFFon 09-23-2021 BASO # 0.1 103/ul Normal 0.0-0.1 [facility] Comment on above: Performed By: #### C BC ####[facility] Zmddmlgtpz[address] [place], [place] [address]DrSkylar Leal Basophils/100 WBC (Bld) 0.6 % Normal 0.2-2.0 [facility] Comment on above: Performed By: #### C BC ####[facility] Okkzpdmgtx324[address] [place], [place] [address]DrSkylar Leal EO # 0.2 103/ul Normal 0.0-0.7 [facility] Comment on above: Performed By: #### C BC ####[facility] Htmbusvzzq05[address] [place], [place] [address]DrSkylar Leal Eosinophils/100 WBC (Bld) 2.6 % Normal 0.9-7.0 [facility] Comment on above: Performed By: #### C BC ####[facility] Cpwshigxkm201[address] [place], [place] [address]DrSkylar Leal Erythrocyte distribution width (RBC) [Ratio] 12.4 % Normal 11.0-15.0 [facility] Comment on above: Performed By: #### C BC ####[facility] Myevvcjnqu1329[address] [place], [place] [address]DrSkylar Leal Hematocrit (Bld) [Volume fraction] 38.4 % Critically low 42.0-54.0 [facility] Comment on above: Performed By: #### C BC ####[facility] Drvyyrqvih836[address] [place], [place] [address]DrSkylar Leal Hemoglobin (Bld) [Mass/Vol] 12.8 g/dL Critically low 14.0-18.0 [facility] Comment on above: Performed By: #### C BC ####[facility] Fxvxzplmih3704 [place] [address]DrSkylar Leal IG # 0.06 10e3/ul Critically high 0.00-0.03 [facility] Comment on above: Performed By: #### C BC ####[facility] Polxgfkngl0474 [place] [address]DrSkylar Leal IG % 0.8 % Critically high 0.0-0.5 [facility] Comment on above: Performed By: #### C BC ####[facility] Mpqhrnynxq710[address] [place], [place] [address]DrSkylar Leal LYMPH # 1.5 103/ul Normal 1.2-3.8 [facility] Comment on above: Performed By: #### C BC ####[facility] Pjhjstyvxh946[address] [place], [place] [address]DrSkylar Leal Lymphocytes/100 WBC (Bld) 19.7 % Critically low 20.5-60.0 [facility] Comment on above: Performed By: #### C BC ####[facility] Wlhwsfqlnh6523[address] [place], [place] [address]DrSkylra Leal MANUAL DIFF REQ NO Normal [facility] Comment on above: Performed By: #### C BC ####[facility] Pvoqejiycr[address] [place], [place] [address]DrSkylar Leal MCH (RBC) [Entitic mass] 31.6 pg Normal 25.9-34.0 [facility] Comment on above: Performed By: #### C BC ####[facility] Xuyypkmmky217[address] [place], [place] [address]DrSkylar Leal MCHC (RBC) [Mass/Vol] 33.3 g/dL Normal 29.9-35.2 [facility] Comment on above: Performed By: #### C BC ####[facility] Kdnhngfkze0411[address] [place], [place] [address]DrSkylar Leal MCV (RBC) [Entitic vol] 94.8 fL Critically high 80.0-94.0 [facility] Comment on above: Performed By: #### C BC ####[facility] Iqdjlblggv8118 [place] [address]DrSkylar Farhat Leal MONO # 1.0 103/ul Critically high 0.3-0.8 [facility] Comment on above: Performed By: #### C BC ####[facility] Tnemveqasj632[address] [place], [place] [address]DrSkylar Joshilorri Elvis Monocytes/100 WBC (Bld) 13.0 % Critically high 1.7-12.0 [facility] Comment on above: Performed By: #### C BC ####[facility] Pognkvueae310[address] [place], [place] [address]Dr. Farhat Leal NEUT # 4.9 103/ul Normal 1.4-6.5 [facility] Comment on above: Performed By: #### C BC ####[facility] Qgabbugjpt079[address] [place], [place] [address]Dr. Farhat Leal Neutrophils/100 WBC (Bld) 63.3 % Normal 43.0-75.0 [facility] Comment on above: Performed By: #### C BC ####[facility] Cxqdlybwgm297[address] [place], [place] [address]DrSkylar Joshilorri Elvis Platelet mean volume (Bld) [Entitic vol] 10.7 fL Normal 9.5-13.5 [facility] Comment on above: Performed By: #### C BC ####[facility] Hberlepvjz2039[address] [place], [place] [address]Dr. Farhat Leal PLT 205 103/ul Normal 150-450 [facility] Comment on above: Performed By: #### C BC ####[facility] Otmmjluqxd447[address] [place], [place] [address]DrSkylar Leal RBC 4.05 106/ul Critically low 4.70-6.10 [facility] Comment on above: Performed By: #### C BC ####[facility] Pqwvgkpgjk9[address] [place], [place] [address]DrSkylar Leal WBC 7.7 103/ul Normal 4.0-11.0 [facility] Comment on above: Performed By: #### C BC ####[facility] Hracsjevkw8969[address] [place], [place] [address]Dr. Farhat Leal PROF CHEM 8 (BAS METB)on Anion gap [Moles/Vol] 15.5 mmol/L Normal [facility] Comment on above: Performed By: #### B MP ####[facility] Dhjtmjsmiz816[address] [place], [place] [address]Dr. Farhat Elvis Calcium [Mass/Vol] 9.1 mg/dL Normal 8.5-10.1 [facility] Comment on above: Performed By: #### B MP ####[facility] Eqdqodimox297[address] [place], [place] [address]Dr. Farhat Leal Chloride [Moles/Vol] 92 mmol/L Critically low 98-107 [facility] Comment on above: Performed By: #### B MP ####[facility] Dmrstfwaad232[address] [place], [place] [address]Dr. Farhat Elvis CO2 [Moles/Vol] 28.5 mmol/L Normal 21.0-32.0 [facility] Comment on above: Performed By: #### B MP ####[facility] Pebydegevs715[address] [place], [place] [address]Dr. Farhat Elvis Creatinine [Mass/Vol] 1.84 mg/dL Critically high 0.70-1.30 [facility] Comment on above: Performed By: #### B MP ####[facility] Teklmlybcv697[address] [place], [place] [address]Dr. Farhat Leal EGFR-AF EMIRATI 44 mL/min/1.73m2 Critically low >=60 [facility] Comment on above: Performed By: #### B MP ####[facility] Svvqempcbi9969[address] [place], [place] [address]Dr. Farhat Leal EGFR-NON AF EMIRATI 36 mL/min/1.73m2 Critically low >=60 [facility] Comment on above: Performed By: #### B MP ####[facility] Sarjpjyunj32[address] [place] [address]Dr. Farhat Leal Glucose [Mass/Vol] 267 mg/dL Critically high 74-106 [facility] Comment on above: Performed By: #### B MP ####[facility] Vmeijnjslh734[address] [place], [place] [address]Dr. Farhat Leal Potassium [Moles/Vol] 5.0 mmol/L Normal 3.5-5.1 [facility] Comment on above: Performed By: #### B MP ####[facility] Exztsoknfe9218[address] [place], [place] [address]Dr. Farhat Leal Sodium [Moles/Vol] 131 mmol/L Critically low 136-145 Th [facility] Comment on above: Performed By: #### B MP ####[facility] Cwplepzveq785[address] [place], [place] [address]Dr. Farhat Leal Urea nitrogen [Mass/Vol] 76.0 mg/dL Critically high 7.0-18.0 [facility] Comment on above: Performed By: #### B MP ####[facility] Zzegmhyxid7610[address] [place], [place] [address]Dr. Farhat Leal Urea nitrogen/Creatinine [Mass ratio] 41.3 mg/mg Normal [facility] Comment on above: Performed By: #### B MP ####[facility] Dzdtajobmq513[address] [place], [place] [address]Dr. Farhat Leal PTT HEPARIN MONITORon 2021 aPTT Coag (Bld) [Time] 57.2 s Critically high 39.5-54. 2 [facility] Comment on above: Performed By: #### P TTHEP ####[facility] Ckyrstmjek0726[address] [place], [place] [address]Dr. Farhat Leal aPTT Coag (Bld) [Time] 74.7 s Critically high 39.5-54. 2 [facility] Comment on above: Result Comment: repe ated Performed By: #### P TTHEP ####[facility] Logoguumub225[address] [place], [place] [address]Dr. Farhat Leal aPTT Coag (Bld) [Time] 45.5 s Normal 39.5-54.2 [facility] Comment on above: Performed By: #### P TTHEP ####[facility] Hxfleefbxu5444 [place] [address]Dr. Farhat Elvis CBC AUTO DIFFon 09-22-2021 BASO # 0.1 103/ul Normal 0.0-0.1 [facility] Comment on above: Performed By: #### C BC ####[facility] Emplzflbqh0015[address] [place], [place] [address]Dr. Farhat Leal Basophils/100 WBC (Bld) 0.7 % Normal 0.2-2.0 [facility] Comment on above: Performed By: #### C BC ####[facility] Dzafvrozfj378[address] [place], [place] [address]Dr. Madelynlorri Elvis EO # 0.3 103/ul Normal 0.0-0.7 [facility] Comment on above: Performed By: #### C BC ####[facility] Cbztxbohxx778[address] [place], [place] [address]Dr. Farhat Leal Eosinophils/100 WBC (Bld) 3.2 % Normal 0.9-7.0 [facility] Comment on above: Performed By: #### C BC ####[facility] Mhuyrroaxb025[address] [place], [place] [address]Dr. Farhat Elvis Erythrocyte distribution width (RBC) [Ratio] 12.5 % Normal 11.0-15.0 [facility] Comment on above: Performed By: #### C BC ####[facility] Ipylieulxo920[address] [place], [place] [address]Dr. Farhat Leal Hematocrit (Bld) [Volume fraction] 40.5 % Critically low 42.0-54.0 [facility] Comment on above: Performed By: #### C BC ####[facility] Xvenaivilc8740[address] [place], [place] [address]Dr. Farhat Leal Hemoglobin (Bld) [Mass/Vol] 13.4 g/dL Critically low 14.0-18.0 [facility] Comment on above: Performed By: #### C BC ####[facility] Frypyauwse[address] [place] [address]Dr. Farhat Leal IG # 0.11 10e3/ul Critically high 0.00-0.03 [facility] Comment on above: Performed By: #### C BC ####[facility] Yqshhcozkb4761 [place] [address]Dr. Farhat Leal IG % 1.3 % Critically high 0.0-0.5 [facility] Comment on above: Performed By: #### C BC ####[facility] Xfkhjclbkv689[address] [place], [place] [address]Dr. Farhat Elvis LYMPH # 1.7 103/ul Normal 1.2-3.8 [facility] Comment on above: Performed By: #### C BC ####[facility] Dflpglqfzw7785[address] [place], [place] [address]Dr. Farhat Elvis Lymphocytes/100 WBC (Bld) 19.6 % Critically low 20.5-60.0 [facility] Comment on above: Performed By: #### C BC ####[facility] Aqzzukafsb501[address] [place], [place] [address]DrSkylar Farhat Leal MANUAL DIFF REQ NO Normal [facility] Comment on above: Performed By: #### C BC ####[facility] Vhxmedqsyj138[address] [place], [place] [address]Dr. Farhat Leal MCH (RBC) [Entitic mass] 31.1 pg Normal 25.9-34.0 [facility] Comment on above: Performed By: #### C BC ####[facility] Rkxfmuenys5350[address] [place], [place] [address]DrSkylar Farhat Leal MCHC (RBC) [Mass/Vol] 33.1 g/dL Normal 29.9-35.2 [facility] Comment on above: Performed By: #### C BC ####[facility] Gruxddbxkz152[address] [place], [place] [address]DrSkylar Farhat Leal MCV (RBC) [Entitic vol] 94.0 fL Normal 80.0-94.0 [facility] Comment on above: Performed By: #### C BC ####[facility] Oqtnacjprx054[address] [place], [place] [address]Dr. Farhat Leal MONO # 1.1 103/ul Critically high 0.3-0.8 [facility] Comment on above: Performed By: #### C BC ####[facility] Wyvqrdoudf3645 [place] [address]Dr. Farhat Leal Monocytes/100 WBC (Bld) 12.7 % Critically high 1.7-12.0 [facility] Comment on above: Performed By: #### C BC ####[facility] Txeayjsxpm4806 [place] [address]Dr. Farhat Leal NEUT # 5.3 103/ul Normal 1.4-6.5 [facility] Comment on above: Performed By: #### C BC ####[facility] Izzmlgjhto1123 [place] [address]Dr. Farhat Elvis Neutrophils/100 WBC (Bld) 62.5 % Normal 43.0-75.0 [facility] Comment on above: Performed By: #### C BC ####[facility] Agipjnusdy3225[address] [place], [place] [address]Dr. Farhat Leal Platelet mean volume (Bld) [Entitic vol] 10.1 fL Normal 9.5-13.5 [facility] Comment on above: Performed By: #### C BC ####[facility] Tzanbiiqao376[address] [place], [place] [address]Dr. Farhat Elvis PLT 220 103/ul Normal 150-450 [facility] Comment on above: Performed By: #### C BC ####[facility] Gzgjszqgsv4[address] [place], [place] [address]Dr. Farhat Leal RBC 4.31 106/ul Critically low 4.70-6.10 [facility] Comment on above: Performed By: #### C BC ####[facility] Gsdqamepew8656 [place] [address]Dr. Madelynlorri Elvis WBC 8.4 103/ul Normal 4.0-11.0 [facility] Comment on above: Performed By: #### C BC ####[facility] Zyilfvzbpd9048 [place] [address]Dr. Farhat Leal PROF CHEM 8 (BAS METB)on Anion gap [Moles/Vol] 15.5 mmol/L Normal [facility] Comment on above: Performed By: #### B MP ####[facility] Bxdtpdaolp4913 [place] [address]Dr. Farhat Leal Calcium [Mass/Vol] 8.9 mg/dL Normal 8.5-10.1 [facility] Comment on above: Performed By: #### B MP ####[facility] Eelcsufxcw0531 [place] [address]Dr. Farhat Leal Chloride [Moles/Vol] 92 mmol/L Critically low 98-107 [facility] Comment on above: Performed By: #### B MP ####[facility] Glbzjdtkja2830[address] [place], [place] [address]Dr. Farhat Leal CO2 [Moles/Vol] 25.7 mmol/L Normal 21.0-32.0 [facility] Comment on above: Performed By: #### B MP ####[facility] Pogtrdyxaz5060[address] [place], [place] [address]Dr. Farhat Leal Creatinine [Mass/Vol] 1.85 mg/dL Critically high 0.70-1.30 [facility] Comment on above: Performed By: #### B MP ####[facility] Vtufzgzpbb58[address] [place], [place] [address]Dr. Farhat Leal EGFR-AF EMIRATI 43 mL/min/1.73m2 Critically low >=60 [facility] Comment on above: Performed By: #### B MP ####[facility] Onjonhtypp505[address] [place], [place] [address]Dr. Farhat Leal EGFR-NON AF EMIRATI 36 mL/min/1.73m2 Critically low >=60 [facility] Comment on above: Performed By: #### B MP ####[facility] Tmvrxlmngk8728[address] [place], [place] [address]Dr. Farhat Leal Glucose [Mass/Vol] 410 mg/dL Critically high 74-106 [facility] Comment on above: Performed By: #### B MP ####[facility] Idzhypmvqh59[address] [place], [place] [address]Dr. Farhat Leal Potassium [Moles/Vol] 5.2 mmol/L Critically high 3.5-5.1 [facility] Comment on above: Performed By: #### B MP ####[facility] Plsoonayng[address] [place], [place] [address]Dr. Farhat Leal Sodium [Moles/Vol] 128 mmol/L Critically low 136-145 [facility] Comment on above: Performed By: #### B MP ####[facility] Ohpqxnqshv7838[address] [place], [place] [address]Dr. Farhat Leal Urea nitrogen [Mass/Vol] 75.0 mg/dL Critically high 7.0-18.0 [facility] Comment on above: Performed By: #### B MP ####[facility] Xzqwjunsxi[address] [place], [place] [address]Dr. Farhat Leal Urea nitrogen/Creatinine [Mass ratio] 40.5 mg/mg Normal [facility] Comment on above: Performed By: #### B MP ####[facility] [address] [place], [place] [address]Dr. Farhat Leal PTT HEPARIN MONITORon 2021 aPTT Coag (Bld) [Time] 51.2 s Normal 39.5-54.2 [facility] Comment on above: Performed By: #### P TTHEP ####[facility] Fxrwckrdsk[address] [place], [place] [address]Dr. Farhat Leal aPTT Coag (Bld) [Time] 55.6 s Critically high 39.5-54. 2 [facility] Comment on above: Performed By: #### P TTHEP ####[facility] Tptxzbsjyd8[address] [place], [place] [address]Dr. Farhat Leal aPTT Coag (Bld) [Time] 46.1 s Normal 39.5-54.2 [facility] Comment on above: Performed By: #### P TTHEP ####[facility] Ycmohckfip[address] [place], [place] [address]Dr. Farhat Leal aPTT Coag (Bld) [Time] 53.8 s Normal 39.5-54.2 Th e [facility] Comment on above: Performed By: #### P TTHEP ####[facility] Abxmrutvjj[address] [place], [place] [address]Dr. Farhat Elvis CBC AUTO DIFFon 09-21-2021 BASO # 0.1 103/ul Normal 0.0-0.1 [facility] Comment on above: Performed By: #### C BC ####[facility] Ruxzrtnnmk75[address] [place], [place] [address]Dr. Farhat Leal Basophils/100 WBC (Bld) 0.8 % Normal 0.2-2.0 [facility] Comment on above: Performed By: #### C BC ####[facility] Lfauibcpdd065[address] [place], [place] [address]Dr. Farhat Leal EO # 0.4 103/ul Normal 0.0-0.7 [facility] Comment on above: Performed By: #### C BC ####[facility] Ghopuqksld[address] [place], [place] [address]Dr. Farhat Leal Eosinophils/100 WBC (Bld) 4.3 % Normal 0.9-7.0 [facility] Comment on above: Performed By: #### C BC ####[facility] Bhhxnmwrms27[address] [place], [place] [address]Dr. Farhat Leal Erythrocyte distribution width (RBC) [Ratio] 12.5 % Normal 11.0-15.0 [facility] Comment on above: Performed By: #### C BC ####[facility] Eiczoaqzom244[address] [place], [place] [address]Dr. Farhat Leal Hematocrit (Bld) [Volume fraction] 40.8 % Critically low 42.0-54.0 [facility] Comment on above: Performed By: #### C BC ####[facility] Zvulcspvvz[address] [place], [place] [address]Dr. Farhat Leal Hemoglobin (Bld) [Mass/Vol] 13.5 g/dL Critically low 14.0-18.0 [facility] Comment on above: Performed By: #### C BC ####[facility] [address]obt[address] [place] [id number]. Farhat Leal IG # 0.10 10e3/ul Critically high 0.00-0.03 [facility] Comment on above: Performed By: #### C BC ####[facility] Jbrphrajix[address] [place] [address]Dr. Farhat Leal IG % 1.2 % Critically high 0.0-0.5 [facility] Comment on above: Performed By: #### C BC ####[facility] Sarwixxovv5143 [place] [address]Dr. Farhat Elvis LYMPH # 1.3 103/ul Normal 1.2-3.8 [facility] Comment on above: Performed By: #### C BC ####[facility] Urjsdsbmzx1751 [place] [address]Dr. Farhat Elvis Lymphocytes/100 WBC (Bld) 15.4 % Critically low 20.5-60.0 [facility] Comment on above: Performed By: #### C BC ####[facility] Ogmnqvrotj13[address] [place] [address]Dr. Farhat Elvis MANUAL DIFF REQ NO Normal [facility] Comment on above: Performed By: #### C BC ####[facility] Qmkjhiiblh5[address] [place] [address]Dr. Farhat Leal MCH (RBC) [Entitic mass] 31.0 pg Normal 25.9-34.0 [facility] Comment on above: Performed By: #### C BC ####[facility] Erlxyzwsyt3676 [place] [address]Dr. Farhat Leal MCHC (RBC) [Mass/Vol] 33.1 g/dL Normal 29.9-35.2 [facility] Comment on above: Performed By: #### C BC ####[facility] Nqlcppeqqp[address] [place], [place] [address]Dr. Farhat Leal MCV (RBC) [Entitic vol] 93.8 fL Normal 80.0-94.0 [facility] Comment on above: Performed By: #### C BC ####[facility] W[address]znundna[address] [place] [address]Ei. Farhat Leal MONO # 1.2 103/ul Critically high 0.3-0.8 [facility] Comment on above: Performed By: #### C BC ####[facility] Vlhdsweffb3239 [place] [address]Dr. Farhat Elvis Monocytes/100 WBC (Bld) 13.6 % Critically high 1.7-12.0 [facility] Comment on above: Performed By: #### C BC ####[facility] Wqbscknumy1528 [place] [address]Dr. Farhat Leal NEUT # 5.5 103/ul Normal 1.4-6.5 [facility] Comment on above: Performed By: #### C BC ####[facility] Gbcyruwodz432[address] [place], [place] [address]Dr. Farhat Leal Neutrophils/100 WBC (Bld) 64.7 % Normal 43.0-75.0 [facility] Comment on above: Performed By: #### C BC ####[facility] Ovqsgzkiej653[address] [place], [place] [address]Dr. Farhat Elvis Platelet mean volume (Bld) [Entitic vol] 9.8 fL Normal 9.5-13.5 [facility] Comment on above: Performed By: #### C BC ####[facility] Mnfyxdrpsd201[address] [place], [place] [address]Dr. Madelynlorri Elvis PLT 206 103/ul Normal 150-450 [facility] Comment on above: Performed By: #### C BC ####[facility] Hpszwzvuji489[address] [place], [place] [address]Dr. Farhat Elvis RBC 4.35 106/ul Critically low 4.70-6.10 [facility] Comment on above: Performed By: #### C BC ####[facility] Arrcuvvmkf[address] [place], [place] [id number]. Madelynlorri Elvis WBC 8.4 103/ul Normal 4.0-11.0 [facility] Comment on above: Performed By: #### C BC ####[facility] Pbltqlexrx99[address] [place], [place] [address]Dr. Farhat Leal PROF CHEM 8 (BAS METB)on Anion gap [Moles/Vol] 12.3 mmol/L Normal [facility] Comment on above: Performed By: #### B MP ####[facility] Unaneutjam6[address] [place] [address]Dr. Farhat Leal Calcium [Mass/Vol] 8.6 mg/dL Normal 8.5-10.1 [facility] Comment on above: Performed By: #### B MP ####[facility] Lrfqglkmqd3835 [place] [address]Dr. Farhat Leal Chloride [Moles/Vol] 94 mmol/L Critically low 98-107 [facility] Comment on above: Performed By: #### B MP ####[facility] Xsmtrrqxqf108[address] [place], [place] [address]Dr. Farhat Leal CO2 [Moles/Vol] 30.8 mmol/L Normal 21.0-32.0 [facility] Comment on above: Performed By: #### B MP ####[facility] Wolnquktwt1415[address] [place], [place] [address]Dr. Farhat Leal Creatinine [Mass/Vol] 1.99 mg/dL Critically high 0.70-1.30 [facility] Comment on above: Performed By: #### B MP ####[facility] Rtibnmzaxa24[address] [place], [place] [address]Dr. Farhat Leal EGFR-AF EMIRATI 40 mL/min/1.73m2 Critically low >=60 [facility] Comment on above: Performed By: #### B MP ####[facility] Zexstiymkc5[address] [place] [address]Dr. Farhat Leal EGFR-NON AF EMIRATI 33 mL/min/1.73m2 Critically low >=60 [facility] Comment on above: Performed By: #### B MP ####[facility] Kshqbavddq1221 [place] [address]Dr. Farhat Leal Glucose [Mass/Vol] 264 mg/dL Critically high 74-106 [facility] Comment on above: Performed By: #### B MP ####[facility] Cesnjlfqpl4562 [place] [address]Dr. Farhat Leal Potassium [Moles/Vol] 5.1 mmol/L Normal 3.5-5.1 [facility] Comment on above: Performed By: #### B MP ####[facility] Tuqbzdcqxy411[address] [place], [place] [address]Dr. Farhat Leal Sodium [Moles/Vol] 132 mmol/L Critically low 136-145 [facility] Comment on above: Performed By: #### B MP ####[facility] Vugiqpsrmu7518[address] [place], [place] [address]Dr. Farhat Leal Urea nitrogen [Mass/Vol] 72.0 mg/dL Critically high 7.0-18.0 [facility] Comment on above: Performed By: #### B MP ####[facility] Rhxkrdsekw[address] [place], [place] [address]Dr. Farhat Leal Urea nitrogen/Creatinine [Mass ratio] 36.2 mg/mg Normal [facility] Comment on above: Performed By: #### B MP ####[facility] Xqbnjjnxdy547[address] [place], [place] [address]Dr. Farhat Leal PTT HEPARIN MONITORon 2021 aPTT Coag (Bld) [Time] 45.3 s Normal 39.5-54.2 [facility] Comment on above: Performed By: #### P TTHEP ####[facility] Hiruzcsotk100[address] [place], [place] [address]Dr. Farhat Leal aPTT Coag (Bld) [Time] 68.0 s Critically high 39.5-54. 2 [facility] Comment on above: Performed By: #### P TTHEP ####[facility] Xzgjswamdh[address] [place], [place] [address]Dr. Farhat Leal aPTT Coag (Bld) [Time] 69.4 s Critically high 39.5-54. 2 [facility] Comment on above: Performed By: #### P TTHEP ####[facility] Wswfttdpjo[address] [place], [place] [address]Dr. Farhat Leal aPTT Coag (Bld) [Time] 53.5 s Normal 39.5-54.2 [facility] Comment on above: Performed By: #### P TTHEP ####[facility] Iojytflwpb0042 [place] [address]Dr. Farhat Elvis aPTT Coag (Bld) [Time] 126.9 s Critically high 39.5-54. 2 [facility] Comment on above: Performed By: #### P TTHEP ####[facility] Ddtbrijrrb560[address] [place], [place] [address]Dr. Farhat Leal CBC AUTO DIFFon 09-20-2021 BASO # 0.1 103/ul Normal 0.0-0.1 [facility] Comment on above: Performed By: #### C BC ####[facility] Ondovxnpbp8769[address] [place], [place] [address]Dr. Farhat Leal Basophils/100 WBC (Bld) 0.7 % Normal 0.2-2.0 [facility] Comment on above: Performed By: #### C BC ####[facility] Zpbokzojtv[address] [place], [place] [address]Dr. Farhat Leal EO # 0.2 103/ul Normal 0.0-0.7 [facility] Comment on above: Performed By: #### C BC ####[facility] Iddqderbrs[address] [place], [place] [address]Dr. Farhat Leal Eosinophils/100 WBC (Bld) 3.2 % Normal 0.9-7.0 [facility] Comment on above: Performed By: #### C BC ####[facility] Lngocodsfl365[address] [place], [place] [address]Dr. Farhat Leal Erythrocyte distribution width (RBC) [Ratio] 12.4 % Normal 11.0-15.0 [facility] Comment on above: Performed By: #### C BC ####[facility] Simttrkymv680[address] [place], [place] [address]Dr. Farhat Leal Hematocrit (Bld) [Volume fraction] 40.1 % Critically low 42.0-54.0 [facility] Comment on above: Performed By: #### C BC ####[facility] Qepjruldvk6265 [place] [id number]. Farhat Leal Hemoglobin (Bld) [Mass/Vol] 13.4 g/dL Critically low 14.0-18.0 [facility] Comment on above: Performed By: #### C BC ####[facility] Egekxkvacg0855 [place] [id number]. Farhat Leal IG # 0.08 10e3/ul Critically high 0.00-0.03 [facility] Comment on above: Performed By: #### C BC ####[facility] Gfylidilxb6757 [place] [id number]. Farhat Leal IG % 1.1 % Critically high 0.0-0.5 [facility] Comment on above: Performed By: #### C BC ####[facility] Ijpqewlhlw1044 [place] [address]Dr. Farhat Leal LYMPH # 1.3 103/ul Normal 1.2-3.8 [facility] Comment on above: Performed By: #### C BC ####[facility] Okigqqzgbd7162 [place] [address]Dr. Farhat Leal Lymphocytes/100 WBC (Bld) 17.3 % Critically low 20.5-60.0 [facility] Comment on above: Performed By: #### C BC ####[facility] Adjqqizkvt2371 [place] [id number]. Farhat Leal MANUAL DIFF REQ NO Normal [facility] Comment on above: Performed By: #### C BC ####[facility] Bpspzwjapd5507 [place] [address]Dr. Fahrat Leal MCH (RBC) [Entitic mass] 31.2 pg Normal 25.9-34.0 [facility] Comment on above: Performed By: #### C BC ####[facility] Vvuaujfpzc5825 [place] [address]Dr. Farhat Leal MCHC (RBC) [Mass/Vol] 33.4 g/dL Normal 29.9-35.2 [facility] Comment on above: Performed By: #### C BC ####[facility] Qmijzhdirb4503 [place] [phone]. Farhat Leal MCV (RBC) [Entitic vol] 93.3 fL Normal 80.0-94.0 [facility] Comment on above: Performed By: #### C BC ####[facility] Aokoftcjiv5463 [place] [phone]. Farhat Leal MONO # 0.9 103/ul Critically high 0.3-0.8 [facility] Comment on above: Performed By: #### C BC ####[facility] Ogbzwafzuf8882 [place] [phone]. Farhat Leal Monocytes/100 WBC (Bld) 12.4 % Critically high 1.7-12.0 [facility] Comment on above: Performed By: #### C BC ####[facility] Sjbigmsaho39[address] [place], [place] [address]Dr. Farhat Leal NEUT # 4.7 103/ul Normal 1.4-6.5 [facility] Comment on above: Performed By: #### C BC ####[facility] Nshmwdtoka7[address] [place], [place] [address]Dr. Farhat Leal Neutrophils/100 WBC (Bld) 65.3 % Normal 43.0-75.0 [facility] Comment on above: Performed By: #### C BC ####[facility] Uupwgjxutp733[address] [place], [place] [address]Dr. Farhat Leal Platelet mean volume (Bld) [Entitic vol] 9.9 fL Normal 9.5-13.5 [facility] Comment on above: Performed By: #### C BC ####[facility] Vuknrqjwcc2003 [place] [id number]. Farhat Leal PLT 180 103/ul Normal 150-450 [facility] Comment on above: Performed By: #### C BC ####[facility] Ohujslgflx[address] [place], [place] [id number]. Farhat Leal RBC 4.30 106/ul Critically low 4.70-6.10 [facility] Comment on above: Performed By: #### C BC ####[facility] Nyldobopsr9667 [place] [address]Dr. Farhat Leal WBC 7.2 103/ul Normal 4.0-11.0 [facility] Comment on above: Performed By: #### C BC ####[facility] Vtszecnysx04[address] [place], [place] [address]Dr. Farhat Leal PTT HEPARIN MONITORon 2021 aPTT Coag (Bld) [Time] 26.7 s Critically low 39.5-54.2 [facility] Comment on above: Performed By: #### P TTHEP ####[facility] Vdldwcjewu155[address] [place], [place] [address]Dr. Farhat Leal aPTT Coag (Bld) [Time] 121.0 s Critically high 39.5-54. 2 [facility] Comment on above: Performed By: #### P TTHEP ####[facility] Jbyknxojdo701[address] [place], [place] [address]Dr. Farhat Leal aPTT Coag (Bld) [Time] 27.6 s Critically low 39.5-54.2 [facility] Comment on above: Performed By: #### P TTHEP ####[facility] Emelqnlkfk565[address] [place], [place] [address]Dr. Farhat Leal aPTT Coag (Bld) [Time] 139.0 s Critically high 39.5-54. 2 [facility] Comment on above: Performed By: #### P TTHEP ####[facility] Xyvbgzglfd726[address] [place], [place] [address]Dr. Farhat Leal CBC AUTO DIFFon 09-19-2021 BASO # 0.0 103/ul Normal 0.0-0.1 [facility] Comment on above: Performed By: #### C BC ####[facility] Tkppqryfkd416[address] [place], [place] [address]Dr. Farhat Leal Basophils/100 WBC (Bld) 0.5 % Normal 0.2-2.0 [facility] Comment on above: Performed By: #### C BC ####[facility] Azdgbqyiel777[address] [place], [place] [address]Dr. Farhat Leal EO # 0.2 103/ul Normal 0.0-0.7 [facility] Comment on above: Performed By: #### C BC ####[facility] Pfnintpjmd8171 [place] [id number]. Farhat Leal Eosinophils/100 WBC (Bld) 2.6 % Normal 0.9-7.0 [facility] Comment on above: Performed By: #### C BC ####[facility] Awzdgurozp0521 [place] [address]Dr. Farhat Leal Erythrocyte distribution width (RBC) [Ratio] 12.5 % Normal 11.0-15.0 [facility] Comment on above: Performed By: #### C BC ####[facility] Tuxjzwdsbd9589 [place] [address]Dr. Farhat Leal Hematocrit (Bld) [Volume fraction] 39.2 % Critically low 42.0-54.0 [facility] Comment on above: Performed By: #### C BC ####[facility] Quddvuamaf8811[address] [place], [place] [address]Dr. Farhat Leal Hemoglobin (Bld) [Mass/Vol] 13.3 g/dL Critically low 14.0-18.0 [facility] Comment on above: Performed By: #### C BC ####[facility] Ttqaqjxvqg3575 [place] [address]Dr. Farhat Leal IG # 0.08 10e3/ul Critically high 0.00-0.03 [facility] Comment on above: Performed By: #### C BC ####[facility] Wixrczmldo9288 [place] [id number]. Farhat Leal IG % 0.9 % Critically high 0.0-0.5 [facility] Comment on above: Performed By: #### C BC ####[facility] Xkkhkihtrt884[address] [place], [place] [address]Dr. Farhat Leal LYMPH # 1.5 103/ul Normal 1.2-3.8 [facility] Comment on above: Performed By: #### C BC ####[facility] Tdpxvanfdh87[address] [place], [place] [address]Dr. Farhat Leal Lymphocytes/100 WBC (Bld) 17.2 % Critically low 20.5-60.0 [facility] Comment on above: Performed By: #### C BC ####[facility] Hiuqzytqdp3960 [place] [address]Dr. Farhat Leal MANUAL DIFF REQ NO Normal [facility] Comment on above: Performed By: #### C BC ####[facility] Hrclbegzbh6049 [place] [address]Dr. Farhat Leal MCH (RBC) [Entitic mass] 31.7 pg Normal 25.9-34.0 [facility] Comment on above: Performed By: #### C BC ####[facility] Qdmwiitajt77[address] [place], [place] [address]Dr. Farhat Leal MCHC (RBC) [Mass/Vol] 33.9 g/dL Normal 29.9-35.2 [facility] Comment on above: Performed By: #### C BC ####[facility] Cafjvmpewp44[address] [place], [place] [address]Dr. Farhat Leal MCV (RBC) [Entitic vol] 93.3 fL Normal 80.0-94.0 [facility] Comment on above: Performed By: #### C BC ####[facility] Deimzkgrau60[address] [place], [place] [address]Dr. Farhat Leal MONO # 1.2 103/ul Critically high 0.3-0.8 [facility] Comment on above: Performed By: #### C BC ####[facility] Njkolcurge058[address] [place], [place] [address]Dr. Farhat Leal Monocytes/100 WBC (Bld) 13.7 % Critically high 1.7-12.0 [facility] Comment on above: Performed By: #### C BC ####[facility] Tuabzjfdbq[address] [place], [place] [address]Dr. Farhat Leal NEUT # 5.5 103/ul Normal 1.4-6.5 [facility] Comment on above: Performed By: #### C BC ####[facility] Uqzctpjzxr188[address] [place], [place] [address]Dr. Farhat Leal Neutrophils/100 WBC (Bld) 65.1 % Normal 43.0-75.0 [facility] Comment on above: Performed By: #### C BC ####[facility] Ctqaucuqrz1224 [place] [address]Dr. Farhat Leal Platelet mean volume (Bld) [Entitic vol] 9.6 fL Normal 9.5-13.5 [facility] Comment on above: Performed By: #### C BC ####[facility] Khkabdmkrc1193 [place] [address]Dr. Farhat Leal PLT 163 103/ul Normal 150-450 [facility] Comment on above: Performed By: #### C BC ####[facility] Lzeegrvanj2771 [place] [address]Dr. Farhat Leal RBC 4.20 106/ul Critically low 4.70-6.10 [facility] Comment on above: Performed By: #### C BC ####[facility] Vxjgnatcot85[address] [place], [place] [address]Dr. Farhat Leal WBC 8.4 103/ul Normal 4.0-11.0 [facility] Comment on above: Performed By: #### C BC ####[facility] Bdwzgqbwze5570 [place] [address]Dr. Farhat Leal POINT OF CARE GLUCOSEon Glucose [Mass/Vol] 300 mg/dL Critically high 74-106 [facility] Comment on above: Performed By: #### P OCGLUC ####[facility] Modwwgbgnd614[address] [place], [place] [address]Dr. Farhat Elvis POTASSIUMon 09-19-2021 Potassium [Moles/Vol] 4.9 mmol/L Normal 3.5-5.1 [facility] Comment on above: Performed By: #### K ####[facility] Lihasfkakm[address] [place], [place] [address]Dr. Farhat Leal PTT HEPARIN MONITORon 2021 aPTT Coag (Bld) [Time] 23.4 s Critically low 39.5-54.2 [facility] Comment on above: Result Comment: repe ated Performed By: #### P TTHEP ####[facility] Saeninafxh[address] [place], [place] [address]Dr. Farhat Leal aPTT Coag (Bld) [Time] 101.2 s Critically high 39.5-54. 2 [facility] Comment on above: Performed By: #### P TTHEP ####[facility] Fchzvdrbwp[address] [place], [place] [address]Dr. Farhat Leal aPTT Coag (Bld) [Time] 81.0 s Critically high 39.5-54. 2 [facility] Comment on above: Result Comment: Test Repeated. Critical Value Verified Performed By: #### P TTHEP ####[facility] Pvovqffdaz[address] [place], [place] [address]Dr. Farhat Leal CBC AUTO DIFFon 09-18-2021 BASO # 0.0 103/ul Normal 0.0-0.1 [facility] Comment on above: Performed By: #### C BC ####[facility] Atifdcjjkr[address] [place], [place] [address]Dr. Madelynlorri Leal Basophils/100 WBC (Bld) 0.4 % Normal 0.2-2.0 [facility] Comment on above: Performed By: #### C BC ####[facility] Gwzesivsmr[address] [place], [place] [address]Dr. Farhat Leal EO # 0.1 103/ul Normal 0.0-0.7 [facility] Comment on above: Performed By: #### C BC ####[facility] Htaydtceed83[address] [place], [place] [address]Dr. Madelynlorri Leal Eosinophils/100 WBC (Bld) 0.8 % Critically low 0.9-7.0 [facility] Comment on above: Performed By: #### C BC ####[facility] Agocyutzje246[address] [place], [place] [address]Dr. Farhat Leal Erythrocyte distribution width (RBC) [Ratio] 12.4 % Normal 11.0-15.0 [facility] Comment on above: Performed By: #### C BC ####[facility] Dymathvjja9402 [place] [address]Dr. Madelynlorri Leal Hematocrit (Bld) [Volume fraction] 41.7 % Critically low 42.0-54.0 [facility] Comment on above: Performed By: #### C BC ####[facility] Inezsimkuq3278 [place] [address]Dr. Farhat Leal Hemoglobin (Bld) [Mass/Vol] 14.1 g/dL Normal 14.0-18.0 [facility] Comment on above: Performed By: #### C BC ####[facility] Imgllxxegq9427 [place] [address]Dr. Farhat Leal IG # 0.06 10e3/ul Critically high 0.00-0.03 [facility] Comment on above: Performed By: #### C BC ####[facility] V[address]tkkckl[address] [place] [address]Dr. Farhat Leal IG % 0.6 % Critically high 0.0-0.5 [facility] Comment on above: Performed By: #### C BC ####[facility] Bhcbpbhyna26[address] [place] [address]Dr. Farhat Leal LYMPH # 0.6 103/ul Critically low 1.2-3.8 The [facility] Comment on above: Performed By: #### C BC ####[facility] Yocdyuulwb2150 [place] [address]Dr. Farhat Leal Lymphocytes/100 WBC (Bld) 6.5 % Critically low 20.5-60.0 [facility] Comment on above: Performed By: #### C BC ####[facility] Ornuvevnrn260[address] [place] [address]Dr. Farhat Leal MANUAL DIFF REQ NO Normal [facility] Comment on above: Performed By: #### C BC ####[facility] Wuyxz[address] [place], [place] [address]Dr. Farhat Leal MCH (RBC) [Entitic mass] 31.6 pg Normal 25.9-34.0 [facility] Comment on above: Performed By: #### C BC ####[facility] Braqyjnyao4866 [place] [id number]. Farhat Leal MCHC (RBC) [Mass/Vol] 33.8 g/dL Normal 29.9-35.2 [facility] Comment on above: Performed By: #### C BC ####[facility] Bitkqddiiw8243 [place] [phone]. Farhat Leal MCV (RBC) [Entitic vol] 93.5 fL Normal 80.0-94.0 [facility] Comment on above: Performed By: #### C BC ####[facility] Hxjtyrmhzz9686 [place] [phone]. Farhat Leal MONO # 1.0 103/ul Critically high 0.3-0.8 [facility] Comment on above: Performed By: #### C BC ####[facility] Eivpxgxjky9854 [place] [phone]. Farhat Leal Monocytes/100 WBC (Bld) 10.4 % Normal 1.7-12.0 [facility] Comment on above: Performed By: #### C BC ####[facility] Xvmizykfey3327 [place] [phone]. Farhat Leal NEUT # 7.8 103/ul Critically high 1.4-6.5 [facility] Comment on above: Performed By: #### C BC ####[facility] Opgnithssz7785 [place] [phone]. Farhat Leal Neutrophils/100 WBC (Bld) 81.3 % Critically high 43.0-75.0 [facility] Comment on above: Performed By: #### C BC ####[facility] Unzxlyfuvu8899 [place] [phone]. Farhat Leal Platelet mean volume (Bld) [Entitic vol] 9.9 fL Normal 9.5-13.5 [facility] Comment on above: Performed By: #### C BC ####[facility] Dclzffojni1386 [place] [phone]. Farhat Leal PLT 169 103/ul Normal 150-450 [facility] Comment on above: Performed By: #### C BC ####[facility] Qsfnnkyjyu6522 [place], [place] [address]Cm. Farhat Leal RBC 4.46 106/ul Critically low 4.70-6.10 [facility] Comment on above: Performed By: #### C BC ####[facility] Gkbvvaeqtg9694 [place], [place] [address]Dt. Farhat Leal WBC 9.6 103/ul Normal 4.0-11.0 [facility] Comment on above: Performed By: #### C BC ####[facility] Vaicsrxqkv8897 [place] [phone]. Farhat Leal BASO # 0.0 103/ul Normal 0.0-0.1 [facility] Comment on above: Performed By: #### C BC ####[facility] Cdrqezszjf8728 [place] [phone]. Farhat Leal Basophils/100 WBC (Bld) 0.4 % Normal 0.2-2.0 [facility] Comment on above: Performed By: #### C BC ####[facility] Ebvtoeatni2666 [place] [phone]. Farhat Leal EO # 0.1 103/ul Normal 0.0-0.7 [facility] Comment on above: Performed By: #### C BC ####[facility] Gprhvkryly8841 [place] [phone]. Farhat Leal Eosinophils/100 WBC (Bld) 1.1 % Normal 0.9-7.0 [facility] Comment on above: Performed By: #### C BC ####[facility] Iobwbzkgsh5465 [place] [phone]. Farhat Leal Erythrocyte distribution width (RBC) [Ratio] 12.6 % Normal 11.0-15.0 [facility] Comment on above: Performed By: #### C BC ####[facility] Adpuyuuylz9582 [place] [phone]. Farhat Leal Hematocrit (Bld) [Volume fraction] 40.8 % Critically low 42.0-54.0 [facility] Comment on above: Performed By: #### C BC ####[facility] Pmkjoagmyh1705 [place] [phone]. Farhat Leal Hemoglobin (Bld) [Mass/Vol] 13.6 g/dL Critically low 14.0-18.0 [facility] Comment on above: Performed By: #### C BC ####[facility] Naorzlenda7756 [place] [phone]. Farhat Leal IG # 0.08 10e3/ul Critically high 0.00-0.03 [facility] Comment on above: Performed By: #### C BC ####[facility] Owinfvlaob1293 [place] [address]Dr. Farhat Leal IG % 0.9 % Critically high 0.0-0.5 [facility] Comment on above: Performed By: #### C BC ####[facility] Czlmyjpj[address] [place], [place] [address]Dr. Farhat Leal LYMPH # 0.8 103/ul Critically low 1.2-3.8 [facility] Comment on above: Performed By: #### C BC ####[facility] Xrxhokgkqo6285 [place] [address]Dr. Farhat Leal Lymphocytes/100 WBC (Bld) 8.7 % Critically low 20.5-60.0 [facility] Comment on above: Performed By: #### C BC ####[facility] Isasqukugn0649 [place] [address]Dr. Farhat Leal MANUAL DIFF REQ NO Normal [facility] Comment on above: Performed By: #### C BC ####[facility] Qnkdhcvyum[address] [place], [place] [address]Dr. Farhat Leal MCH (RBC) [Entitic mass] 31.6 pg Normal 25.9-34.0 [facility] Comment on above: Performed By: #### C BC ####[facility] Nqochwbeno1549 [place] [address]Dr. Farhat Leal MCHC (RBC) [Mass/Vol] 33.3 g/dL Normal 29.9-35.2 [facility] Comment on above: Performed By: #### C BC ####[facility] Adeggxohma1378 [place] [phone]. Farhat Leal MCV (RBC) [Entitic vol] 94.9 fL Critically high 80.0-94.0 [facility] Comment on above: Performed By: #### C BC ####[facility] Xlkeabxlmv6963 [place] [phone]. Farhat Leal MONO # 1.0 103/ul Critically high 0.3-0.8 [facility] Comment on above: Performed By: #### C BC ####[facility] Yonhbewfmb6814 [place] [phone]. Farhat Leal Monocytes/100 WBC (Bld) 11.3 % Normal 1.7-12.0 [facility] Comment on above: Performed By: #### C BC ####[facility] Epgklcreod[address] [place], [place] [address]Dr. Farhat Leal NEUT # 6.9 103/ul Critically high 1.4-6.5 [facility] Comment on above: Performed By: #### C BC ####[facility] [address]am[address] [place], [place] [id number]. Farhat Leal Neutrophils/100 WBC (Bld) 77.6 % Critically high 43.0-75.0 [facility] Comment on above: Performed By: #### C BC ####[facility] Xwhfveusnp[address] [place], [place] [id number]. Farhat Leal Platelet mean volume (Bld) [Entitic vol] 9.7 fL Normal 9.5-13.5 [facility] Comment on above: Performed By: #### C BC ####[facility] Dgymdrdhia[address] [place], [place] [phone]. Farhat Leal PLT 171 103/ul Normal 150-450 [facility] Comment on above: Performed By: #### C BC ####[facility] Ttmjavhasb[address] [place], [place] [id number]. Farhat Leal RBC 4.30 106/ul Critically low 4.70-6.10 [facility] Comment on above: Performed By: #### C BC ####[facility] Lovthppwci6462 [place], [place] [address]Jr. Farhat Leal WBC 8.9 103/ul Normal 4.0-11.0 [facility] Comment on above: Performed By: #### C BC ####[facility] Gqketagekd1189 [place], [place] [address]Os. Farhat Leal Covid-19 PCR (CVDTBH)on SARS-CoV-2 (COVID-19) RNA JOSH+probe Ql (Unsp spec) Not detected Normal NOT DETECTED [facility] Comment on above: Result Comment: When [...] for this test is supported by the [place] of Health and Human Service's declaration that [...] be used). Performed By: #### C VDTBH ####[facility] Kjadetofqt5544 [place] [address]Dr. Madelynlorri Leal PROF 14(COMP METB)on 022 Albumin [Mass/Vol] 2.6 g/dL Critically low 3.4-5.0 Th e [facility] Comment on above: Performed By: #### C MP ####[facility] Kjislyftbb7005 [place] [address]Dr. Madelynlorri Leal Albumin/Globulin [Mass ratio] 0.7 {ratio} Normal [facility] Comment on above: Performed By: #### C MP ####[facility] Tlohjtnlbz5899 [place] [address]Dr. Farhat Leal ALP [Catalytic activity/Vol] 88 U/L Normal 46-116 [facility] Comment on above: Performed By: #### C MP ####[facility] Ftnnaolarj2607 [place] [address]Dr. Farhat Leal ALT [Catalytic activity/Vol] 15 U/L Critically low 16-63 [facility] Comment on above: Performed By: #### C MP ####[facility] Jusvcffton1079 [place] [address]Dr. Farhat Elvis Anion gap [Moles/Vol] 11.7 mmol/L Normal Th e [facility] Comment on above: Performed By: #### C MP ####[facility] Cyzeqchndm1300 [place] [address]Dr. Farhat Elvis AST [Catalytic activity/Vol] 25 U/L Normal 15-37 [facility] Comment on above: Performed By: #### C MP ####[facility] Slurgoiuio4119 [place] [address]Dr. Farhat Elvis Bilirubin [Mass/Vol] 0.6 mg/dL Normal 0.2-1.0 [facility] Comment on above: Performed By: #### C MP ####[facility] Qxggmzceer6524 [place] [address]Dr. Farhat Elvis Calcium [Mass/Vol] 8.9 mg/dL Normal 8.5-10.1 [facility] Comment on above: Performed By: #### C MP ####[facility] Mrazmawgxo6012 [place] [address]Dr. Farhat Elvis Chloride [Moles/Vol] 93 mmol/L Critically low 98-107 [facility] Comment on above: Performed By: #### C MP ####[facility] Arpoioshxl8347 [place] [address]Dr. Farhat Leal CO2 [Moles/Vol] 28.9 mmol/L Normal 21.0-32.0 [facility] Comment on above: Performed By: #### C MP ####[facility] Zjfyyjtopw8682 [place] [address]Dr. Farhat Leal Creatinine [Mass/Vol] 2.09 mg/dL Critically high 0.70-1.30 [facility] Comment on above: Performed By: #### C MP ####[facility] Smpfdzygea0713 [place] [address]Dr. Farhat Leal EGFR-AF EMIRATI 38 mL/min/1.73m2 Critically low >=60 [facility] Comment on above: Performed By: #### C MP ####[facility] Oujfnzwdri7066 [place] [address]Dr. Farhat Elvis EGFR-NON AF EMIRATI 31 mL/min/1.73m2 Critically low >=60 [facility] Comment on above: Performed By: #### C MP ####[facility] Lgxgudxkgs[address] [place], [place] [address]Dr. Farhat Elvis Globulin (S) [Mass/Vol] 3.7 g/dL Normal [facility] Comment on above: Performed By: #### C MP ####[facility] Iatkerssmg[address] [place], [place] [address]Dr. Farhat Elvis Glucose [Mass/Vol] 214 mg/dL Critically high 74-106 [facility] Comment on above: Performed By: #### C MP ####[facility] Zrdyahekvz[address] [place], [place] [address]Dr. Madelynlorri Elvis Potassium [Moles/Vol] 5.6 mmol/L Critically high 3.5-5.1 [facility] Comment on above: Performed By: #### C MP ####[facility] Tlnbljbeeb[address] [place], [place] [address]Dr. Farhat Leal Protein [Mass/Vol] 6.3 g/dL Critically low 6.4-8.2 Th [facility] Comment on above: Performed By: #### C MP ####[facility] Blacgxndwh[address] [place], [place] [address]Dr. Madelynlorri Elvis Sodium [Moles/Vol] 128 mmol/L Critically low 136-145 Th [facility] Comment on above: Performed By: #### C MP ####[facility] Agzgghhwoh[address] [place], [place] [address]Dr. Farhat Leal Urea nitrogen [Mass/Vol] 65.0 mg/dL Critically high 7.0-18.0 [facility] Comment on above: Performed By: #### C MP ####[facility] Uwfuvydrja[address] [place], [place] [address]Dr. Farhat Leal Urea nitrogen/Creatinine [Mass ratio] 31.1 mg/mg Normal [facility] Comment on above: Performed By: #### C MP ####[facility] Hxlevngxja15[address] [place], [place] [address]Dr. Madelynlorri Elvis Albumin [Mass/Vol] 2.5 g/dL Critically low 3.4-5.0 Th e [facility] Comment on above: Performed By: #### T MYRIAM, CMP ####[facility] Tggrbitcus301[address] [place], [place] [address]Dr. Farhat Leal Albumin/Globulin [Mass ratio] 0.7 {ratio} Normal [facility] Comment on above: Performed By: #### T MYRIAM, CMP ####[facility] Tcpgxhfxaq13[address] [place], [place] [address]Dr. Madelynlorri Leal ALP [Catalytic activity/Vol] 83 U/L Normal 46-116 [facility] Comment on above: Performed By: #### T MYRIAM, CMP ####[facility] Rjajctiuvu[address] [place], [place] [address]Dr. Farhat Leal ALT [Catalytic activity/Vol] 16 U/L Normal 16-63 [facility] Comment on above: Performed By: #### T MYRIAM, CMP ####[facility] Kmkkvfccel365[address] [place], [place] [address]Dr. Farhat Leal Anion gap [Moles/Vol] 9.7 mmol/L Normal [facility] Comment on above: Performed By: #### T MYRIAM, CMP ####[facility] Rdyulzmwhs[address] [place], [place] [address]Dr. Farhat Leal AST [Catalytic activity/Vol] 27 U/L Normal 15-37 [facility] Comment on above: Performed By: #### T SH, CMP ####[facility] Tywfvnkqob27[address] [place], [place] [address]Dr. Farhat Leal Bilirubin [Mass/Vol] 0.5 mg/dL Normal 0.2-1.0 [facility] Comment on above: Performed By: #### T SH, CMP ####[facility] Dftohyiibk[address] [place], [place] [address]Dr. Farhat Leal Calcium [Mass/Vol] 8.8 mg/dL Normal 8.5-10.1 [facility] Comment on above: Performed By: #### T SH, CMP ####[facility] Ylazpqpybh[address] [place], [place] [address]Dr. Farhat Leal Chloride [Moles/Vol] 95 mmol/L Critically low 98-107 [facility] Comment on above: Performed By: #### T MYRIAM, CMP ####[facility] Qymjthltfc[address] [place], [place] [address]Dr. Farhat Leal CO2 [Moles/Vol] 30.5 mmol/L Normal 21.0-32.0 [facility] Comment on above: Performed By: #### T MYRIAM, CMP ####[facility] Sbbkiblbag[address] [place], [place] [address]Dr. Farhat Leal Creatinine [Mass/Vol] 2.18 mg/dL Critically high 0.70-1.30 [facility] Comment on above: Performed By: #### T MYRIAM, CMP ####[facility] Lefnzqxdcu39[address] [place], [place] [address]Dr. Farhat Leal EGFR-AF EMIRATI 36 mL/min/1.73m2 Critically low >=60 [facility] Comment on above: Performed By: #### T MYRIAM, CMP ####[facility] Qizvbwohyp70[address] [place], [place] [address]Dr. Farhat Leal EGFR-NON AF EMIRATI 30 mL/min/1.73m2 Critically low >=60 [facility] Comment on above: Performed By: #### T SH, CMP ####[facility] Aiioemhevr[address] [place], [place] [address]Dr. Farhat Leal Globulin (S) [Mass/Vol] 3.5 g/dL Normal [facility] Comment on above: Performed By: #### T MYRIAM, CMP ####[facility] Vozvtqbnbu2804 [place] [address]Dr. Madelynlorri Leal Glucose [Mass/Vol] 141 mg/dL Critically high 74-106 T [facility] Comment on above: Performed By: #### T SH, CMP ####[facility] Emysztembl[address] [place], [place] [address]Dr. Farhat Leal Potassium [Moles/Vol] 5.2 mmol/L Critically high 3.5-5.1 [facility] Comment on above: Performed By: #### T SH, CMP ####[facility] Sljhhqceln[address] [place], [place] [address]Dr. Farhat Leal Protein [Mass/Vol] 6.0 g/dL Critically low 6.4-8.2 [facility] Comment on above: Performed By: #### T MYRIAM, CMP ####[facility] Kqllrpcxsr[address] [place], [place] [address]Dr. Farhat Leal Sodium [Moles/Vol] 130 mmol/L Critically low 136-145 [facility] Comment on above: Performed By: #### T MYRIAM, CMP ####[facility] Bsfsfxbgmc317[address] [place], [place] [address]Dr. Farhat Leal Urea nitrogen [Mass/Vol] 63.0 mg/dL Critically high 7.0-18.0 [facility] Comment on above: Performed By: #### T MYRIAM, CMP ####[facility] Eekuhqzpdo[address] [place], [place] [address]Dr. Farhat Leal Urea nitrogen/Creatinine [Mass ratio] 28.9 mg/mg Normal [facility] Comment on above: Performed By: #### T MYRIAM, CMP ####[facility] Aoatrntmko464[address] [place], [place] [address]Dr. Farhat Leal PROTIMEon 09-18-2021 INR Coag (PPP) [Relative time] 1.06 {INR} Normal [facility] Comment on above: Performed By: #### P T, PTT ####[facility] Raixsafbwb[address] [place], [place] [address]Dr. Farhat Leal INR GUIDELINES SEE BELOW Normal [facility] Comment on above: Result Comment: MALINA RED INR: 2.0 - 3.0 CONDITIONS NOT LISTED BELOW 2.5 - 3.5 FOR PROSTHETIC HEART VALVE REPLACEMENT 2.5 - 3.5 RECURRENT THROMBOSIS Performed By: #### P T, PTT ####[facility] Qxdcvbynvz[address] [place] [address]Dr. Farhat Leal PT Coag (PPP) [Time] 11.4 s Normal 9.0-11.6 [facility] Comment on above: Performed By: #### P T, PTT ####[facility] Uwefcjfjoc43[address] [place] [address]Dr. Madelynlorri Leal PTTon 09-18-2021 aPTT Coag (Bld) [Time] 27.9 s Normal 22.3-36.2 [facility] Comment on above: Performed By: #### P T, PTT ####[facility] Vymkeqibdo2119 [place] [address]Dr. Farhat Leal TSHon 09-18-2021 TSH 7.099 uIU/mL Critically high 0.358-3.740 [facility] Comment on above: Performed By: #### T SH, CMP ####[facility] Yoabxbspbe[address] [place], [place] [address]Dr. 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 [employer] DO Work Phone: [facility] 03-18-2023 13:37-0500 Diastolic blood pressure 64 mm[Hg] Hunter [employer] DO Work Phone: [facility] 03-18-2023 13:37-0500 Heart rate 72 /min [facility] DO Work Phone: [facility] 03-18-2023 13:37-0500 SaO2% (BldA) [Mass fraction] 98 % Ni Sandhuick DO Work Phone: [facility] 03-18-2023 13:37-0500 Systolic blood pressure 118 mm[Hg] Ni Whiteznick DO Work Phone: [facility] 07-20-2022 13:35-0400 Body temperature 97.4 [degF] DO Devon Ball Work Phone: [facility] 07-20-2022 13:35-0400 Diastolic blood pressure 50 mm[Hg] DO Devon Ball Work Phone: [facility] 07-20-2022 13:35-0400 Heart rate 67 /min DO Devon Ball Work Phone: [facility] 07-20-2022 13:35-0400 Respiratory rate 20 /min DO Devon Ball Work Phone: [facility] 07-20-2022 13:35-0400 Systolic blood pressure 98 mm[Hg] DO Devon Ball Work Phone: [facility] 06-29-2022 14:46-0400 Body height 193.04 cm DO Devon Ball Work Phone: [facility] 02-26-2022 13:11-0500 Body temperature 96.6 [degF] Hina Peterson MD Work Phone: [facility] 02-26-2022 13:11-0500 Diastolic blood pressure 75 mm[Hg] Hina Peterson MD Work Phone: [facility] 02-26-2022 13:11-0500 Heart rate 75 /min Hina Peterson MD Work Phone: [facility] 02-26-2022 13:11-0500 Systolic blood pressure 88 mm[Hg] Hina Peterson MD Work Phone: [facility] 02-05-2022 08:29-0500 Body temperature 96.69 [degF] [facility] Work Phone: [facility] 02-05-2022 08:29-0500 Diastolic blood pressure 42 mm[Hg] [facility] Work Phone: [facility] 02-05-2022 08:29-0500 Heart rate 79 /min [facility] Work Phone: [facility] 02-05-2022 08:29-0500 SaO2% (BldA) [Mass fraction] 100 % [facility] Work Phone: [facility] 02-05-2022 08:29-0500 Systolic blood pressure 72 mm[Hg] [facility] Work Phone: [facility] 01-12-2022 11:00-0500 Diastolic blood pressure 54 mm[Hg] Alissa Major [employer] Work Phone: [facility] 01-12-2022 11:00-0500 Heart rate 88 /min Alissa Major [employer] Work Phone: [facility] 01-12-2022 11:00-0500 SaO2% (BldA) [Mass fraction] 93 % Alissa Major [employer] Work Phone: [facility] 01-12-2022 11:00-0500 Systolic blood pressure 96 mm[Hg] Alissa Major [employer] Work Phone: [facility] 01-12-2022 10:12-0500 Body temperature 97.9 [degF] Alissa Major [employer] Work Phone: [facility] 01-12-2022 10:12-0500 Respiratory rate 18 /min Alissa Major [employer]ICER Work Phone: [facility] 11-17-2021 15:59-0400 Body height 193 cm No Reeder DO Work Phone: [facility] 11-17-2021 15:59-0400 Body weight 111.58 kg No Reeder DO Work Phone: [facility] 11-17-2021 15:59-0400 Diastolic blood pressure 59 mm[Hg] No Reeder DO Work Phone: [facility] 11-17-2021 15:59-0400 Heart rate 86 /min No Reeder DO Work Phone: [facility] 11-17-2021 15:59-0400 SaO2% (BldA) [Mass fraction] 97 % No Reeder DO Work Phone: [facility] 11-17-2021 15:59-0400 Systolic blood pressure 104 mm[Hg] No Reeder DO Work Phone: [facility] Encounters Encounter Date Encounter Type Care Provider Facility Start: 05-19-2023 End: 05-19-2023 ambulatory [facility] Start: 04-11-2023 End: 04-11-2023 ambulatory Devon Moreira Other [employer] Other Start: 04-11-2023 Telephone encounter Devon Moreira [facility] Start: 03-18-2023 End: 03-18-2023 ambulatory NI CABRERA Not Available Start: 03-18-2023 End: 03-18-2023 Office outpatient visit 25 minutes Ni Cabrera DO Work Phone: [facility] [phone] Comment on above: 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 ([facility]/HCC) (Primary Dx); 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); 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); Type 1 diabetes mellitus with hypoglycemia and without coma (CMS/HCC); 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 ([facility]/HCC) Start: 02-17-2023 End: 02-17-2023 ambulatory Devon Moreira Other [employer] Other Start: 02-17-2023 Telephone encounter Devon NUNEZ [facility] Start: 01-14-2023 End: 01-14-2023 ambulatory Devon Moreira Other [employer] Other Start: 01-14-2023 Sbsq nursing facil c are/day minor complj 15 min Devon Moreira [facility] Start: 12-10-2022 End: 12-10-2022 ambulatory Devon Moreira Other [employer] Other Start: 12-10-2022 Sbsq nursing facil c are/day minor complj 15 min Devon Moreira [facility] Start: 11-12-2022 End: 11-12-2022 ambulatory Devon Moreira Other [employer] Other Start: 11-12-2022 Sbsq nursing facil c are/day minor complj 15 min [facility] Start: 10-16-2022 Refill Asia Pike MD Work Phone: [facility] Comment on above: Med Change Request Start: 10-12-2022 End: 10-12-2022 ambulatory Devon Moreira Other [employer] Other Start: 10-12-2022 Telephone encounter Devon Moreira [facility] Start: 10-08-2022 End: 10-08-2022 ambulatory Devon Moreira Other [employer] Other Start: 10-08-2022 Sbsq nursing facil c are/day new problem 25 min [facility] Start: 09-22-2022 [facility] Comment on above: Rx Refills Start: 09-10-2022 End: 09-10-2022 ambulatory Devon Moreira Other [employer] Other Start: 09-10-2022 Sbsq nursing facil c are/day new problem 25 min [facility] Start: 09-09-2022 End: 09-09-2022 ambulatory [facility] Start: 08-06-2022 End: 08-06-2022 ambulatory Devon Moreira Other [employer] Other Start: 08-06-2022 Sbsq nursing facil c are/day new problem 25 min [facility] Start: 07-22-2022 End: 07-22-2022 ambulatory Devon Moreira Other [employer] Other Start: 07-22-2022 Telephone encounter Devon NUNEZ [facility] Start: 07-20-2022 End: 07-20-2022 ambulatory Sadia Aguilar Facility:[facility] Start: 07-20-2022 End: 07-20-2022 ambulatory DO Devon Moreira Work Phone: [facility] Work Phone: Start: 07-20-2022 End: 07-20-2022 Discharged Recurring DO Devon Moreira Work Phone: [facility] Work Phone: Start: 07-13-2022 End: 07-13-[address] DEVON MOREIRA Facility:[facility]1 Start: 07-10-2022 End: 07-10-[address] DEVON MOREIRA Facility:[facility] Start: 07-03-2022 End: 07-03-[address] DEVON MOREIRA Facility:[facility] Start: 06-26-2022 End: 06-26-[address] DEVON MOREIRA Facility:[facility] Start: 06-26-2022 End: 06-26-[address] DEVON MOREIRA Facility:[facility]1 Start: 06-25-2022 End: 06-25-2022 ambulatory Devon Moreira Other [employer] Other Start: 06-25-2022 Sbsq nursing facil c are/day minor complj 15 min Devon Moreira [facility] Start: 06-19-2022 End: 06-19-[address] DEVON MOREIRA Facility:[facility] Start: 06-15-2022 End: 07-15-2022 ambulatory SHAIKH Kate MURRAY Facility:[facility]1 Start: 06-12-2022 End: 06-12-[address] DOCTOR WALSH Facility:[facility]1 Start: 06-05-2022 Sbsq nursing facil c are/day new problem 25 min Devon Moreira [facility] Start: 06-05-2022 End: 06-05-[address] DEVON MOREIRA [facility] Other Start: 05-29-2022 End: 05-29-[address] DEVON MOREIRA Facility:[facility]1 Start: 05-22-2022 End: 05-22-[address] DEVON MOREIRA Facility:[facility] Start: 05-20-2022 End: 05-20-[address] DEVON MOREIRA Facility:[facility]1 Start: 05-18-2022 End: 06-12-2022 ambulatory SHAIKH Kate MURRAY Facility:[facility] Start: 05-15-2022 End: 05-15-[address] DEVON MOREIRA Facility:[facility]1 Start: 05-13-2022 End: 05-13-2022 ambulatory Van Olivarez SENIOR ADVOCATE.[employer] OFFIC[employer] Work Phone: [facility] Comment on above: results Start: 05-13-2022 E-mail encounter fro m caregiver Van Olivarez APRN.[employer]ORDER PROTECTION OFFICER Work Phone: [facility] Start: 05-08-2022 End: 05-08-[address] DEVON MOREIRA Facility:[facility]1 Start: 05-07-2022 End: 05-07-2022 ambulatory Devon Moreira Other [facility] Other Start: 05-07-2022 Sbs nursing facil c are/day new problem 25 min Devon Moreira [facility] Start: 05-06-2022 End: 05-06-2022 [...] MOREIRA Facility:[facility]1 Start: 04-02-2022 ambulatory Van cortes APRN.[employer]ORDER PROTECTION OFFICER Work Phone: [facility] Start: 04-01-2022 End: 04-01-[address] DEVON MOREIRA Facility:[facility]1 Start: 03-22-2022 Refill Asia Pike MD Work Phone: [facility] Comment on above: Med Change Request Start: 03-21-2022 ambulatory SHAIKH Kate MURRAY Facilit y:H1 Start: 03-11-2022 End: 03-11-[address] DEVON MOREIRA Facility:[facility]1 Start: 02-27-2022 Refill Arnulfovic K[facility] Comment on above: Rx Refills Start: 02-26-2022 End: 02-26-2022 ambulatory DEVON MOREIRA Facility:[facility] Start: 02-26-2022 End: 02-26-2022 Patient encounter procedure [...] Start: 02-05-2022 End: 02-06-2022 ambulatory ARTUR GARCIAERVARY Facility:[facility] Start: 02-05-2022 End: 02-05-2022 Patient encounter procedure [facility] Work Phone: [facility] Comment on above: Kidney replaced by t ransplant (Primary Dx); 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; residential current use of immunosuppressive drug Start: 01-26-2022 End: 01-26-[address] DEVON MOREIRA Facility:[facility]1 Start: 01-20-2022 Telephone encounter Van Olivarez APRN.[employer]ORDER PROTECTION OFFICER Work Phone: [facility] Comment on above: Results Start: 01-19-2022 End: 01-19-[address] DEVON MOREIRA Facility:[facility]1 Start: 01-16-2022 ambulatory SHAIKH Kate MURRAY Facilit y:H1 Start: 01-12-2022 End: 01-12-2022 Subsequent hospital visit by physician Alissa Chavira APRN.[employer]ORDER PROTECTION OFFICER Work Phone: [facility] Comment on above: ILIANA (acute kidney in jury) (HCC) [N17.9] Start: 12-30-2021 End: 12-30-2021 ambulatory Paresh Fonseca MD Work Phone: Infectious Disease Comment on above: MRSA bacteremia (Arabella munira Dx); Diabetic foot ulcer with osteomyelitis (HCC) Start: 12-30-2021 End: 12-30-2021 Telemedicine consultation with patient Paresh Fonseca MD Work Phone: [facility] Start: 12-29-2021 End: 12-29-[address] DEVON [...] Start: 12-08-2021 Orders Only Artur Jennyfer soto SENIOR ADVOCATE.C[employer]S AND BORDER PROTECTION OFFICER Work Phone: [facility]plant Center Comment on above: Kidney replaced by t ransplant (Primary Dx) Start: 12-07-2021 ambulatory Paresh Fonseca MD Work Phone: [facility] Comment on above: CoPat Start (copat s top 12/27/21) Start: 12-05-2021 Telephone encounter Paresh Fonseca MD Work Phone: Infectious Disease Comment on above: Patient Update (evus held discussion/) Start: 12-01-2021 Follow-up encounter [facility] Provider [facility] Start: 12-01-2021 Patient encounter procedure [facility] Prov ider [facility] Department Start: 11-23-2021 End: 11-28-2021 Evaluation [...] End: 11-15-2021 ambulatory [facility] Cort[facility] Facility[facility] Start: 10-24-2021 End: 11-15-2021 ambulatory SHAIKH Kate MURRAY Facility:[facility]1 Start: 10-22-2021 End: 10-23-2021 ambulatory ASHLEY Cortes [facility] Facility:[facility]1 Start: 10-06-2021 ambulatory Van cortes SENIOR ADVOCATE.[employer]ORDER PROTECTION OFFICER Work Phone: [facility] Start: 09-30-2021 Refill Asia Pike MD Work Phone: [facility] Comment on above: Refill Request Start: 09-19-2021 End: 09-24-2021 Evaluation and management of inpatient DR PROSPER LEES Facility:H1 Start: 09-18-2021 End: 09-19-[address] DEVON MOREIRA Facility:[facility]1 Start: 07-11-2021 Refill Asia Pike MD Work Phone: [facility] Comment on above: Refill Request Start: 06-05-2021 Telephone encounter Van Olivarez SENIOR ADVOCATE.C[employer]S AND BORDER PROTECTION OFFICER Work Phone: [facility] Comment on above: Results Start: 02-05-2021 End: 02-13-2021 ambulatory UNKNOWN PROVIDER Facility:[facility] Procedures Date Procedure Procedure Detail Performing Clinician Start: 05-19-2023 Follow-up visit Follow-up CAITY IBRAHIM Start: 03-18-2023 Hemoglobin glycosyla rk a1c Ni Cabrera DO Work Phone: Start: 02-05-2022 Creatinine other source Asia Pike MD Work Phone: Start: 02-05-2022 Urnls dip stick/tabl et rgnt auto w/o microscopy Asia Pike MD Work Phone: Start: 01-12-2022 Prothrombin time Alissa Chavira SENIOR ADVOCATE.[employer] PROTECTION OFFICER Work Phone: Start: 12-01-2021 PACEMAKER CLINIC CHECK [facility] Provider Start: 11-29-2021 Microscopic examinat ion of blood, culture DR PROSPER LEES Comment on above: Performed By: #### B [id number] ####[facility] [id number] [place] [id number]. Farhat Leal Start: 11-27-2021 Insertion of Infusio [...] renal transplant KIDNEY TRANSPLANT STATUS Van Olivarez SENIOR ADVOCATE.[employer] PROTECTION OFFICER Work Phone: History of renal transplant Kidney replaced by transplant Arturadrian Chen SENIOR ADVOCATE.[employer]ORDER PROTECTION OFFICER Work Phone: History of renal transplant Kidney replaced by transplant [facility] Work Phone: History of renal transplant Devon Moreira Other History of renal transplant Kidney replaced by transplant Asia Pike MD Work Phone: History of renal transplant Devon Moreira Other Plan of Treatment Date Care Activity Detail Author Start: 06-17-2023 End: 06-17-2023 Patient encounter procedure 06/17/2023 2:15 PM EDT Office Visit [facility] [address] [place] [address] Ni Cabrera DO [address] [place] [address] [facility] [address] Start: 06-16-2023 Hemoglobin A1c measurement Diabetes: Hemoglobin A1C [facility] Start: 02-26-2023 BP CONTROLLED (<130/80) BP CONTROLLE D (<130/80) [facility] Start: 02-05-2023 BP CONTROLLED (<130/80) BP CONTROLLE D (<130/80) [facility] Start: 01-12-2023 BP CONTROLLED (<130/80) BP CONTROLLE D (<130/80) [facility] Start: 11-17-2022 BP CONTROLLED (<130/80) BP CONTROLLE D (<130/80) [facility] Start: 10-16-2022 Influenza vaccination [facility] Start: 05-15-2022 Medicare Annual Wellness (AWV) Medicare Annual Wellness (AWV) [facility] Start: 04-08-2022 BP CONTROLLED (<130/80) BP CONTROLLE D (<130/80) [facility] Start: 02-15-2022 ADVANCE DIRECTIVE DISCUSSION ADVANCE DIRECTIVE DISCUSSION [facility] Start: 02-15-2022 DEPRESSION ASSESSMENT DEPRESSION ASS ESSMENT [facility] Start: 02-05-2022 COVID-19 VACCINE (5 - Yung risk series) COVID-19 VACCINE (5 - Yung risk series) [facility] Start: 11-27-2021 COVID-19 VACCINE (4 - Booster for Yung series) COVID-19 VACCINE (4 - Booster for Yung series) [facility] Start: 11-04-2021 Hemoglobin A1c/Hemoglobin.total in Blood HBA1C [facility] Start: 10-16-2021 Influenza vaccination [facility] Start: 03-26-2021 COVID-19 VACCINE (3 - Yung risk 3-dose series) COVID-19 VACCINE (3 - Yung risk 3-dose series) [facility] Start: 03-26-2021 COVID-19 VACCINE (3 - Yung risk series) COVID-19 VACCINE (3 - Yung risk series) [facility] Start: 02-15-2021 ADVANCE DIRECTIVE DISCUSSION ADVANCE DIRECTIVE DISCUSSION [facility] Start: 02-15-2021 DEPRESSION ASSESSMENT DEPRESSION ASS ESSMENT [facility] Start: 01-05-2016 Hepatitis B screening URINE AL BUMIN:CREATININE RATIO [facility] Start: 07-31-2015 Pneumococcal Vaccine : 65+ Years (3 - PCV) Pneumococcal Vaccine: 65+ Years (3 - PCV) [facility] Start: 04-06-2015 Hemoglobin A1c/Hemoglobin.total in Blood HBA1C [facility] Start: 11-22-2010 Hepatitis B surface antibody level LDL CHOLESTEROL [facility] Start: 2009 ADULT PREVNAR-13 ADULT PREVNAR-13 Cl [facility] Start: 2009 PNEUMOVAX AGE 65 AND OVER WITH 5YR LOOKBACK (#1) PNEUMOVAX AGE 65 AND OVER WITH 5YR LOOKBACK (#1) [facility] Start: 1994 SHINGRIX VACCINE (1 of 2) SHINGRIX VACCINE (1 of 2) [facility] Start: 10-18-1963 HEPATITIS A (1 of 2 - Risk 2-dose series) HEPATITIS A (1 of 2 - Risk 2-dose series) [facility] Start: 10-18-1963 Hepatitis A Vaccine (1 of 2 - Risk 2-dose series) Hepatitis A Vaccine (1 of 2 - Risk 2-dose series) [facility] Start: 10-18-1963 SHINGRIX VACCINE (1 of 2) SHINGRIX VACCINE (1 of 2) [facility] Start: 10-18-1963 Urine microalbumin profile [facility] Start: 1962 ANNUAL PCP TEAM ROLLER SETTER MATTHEW DISEASE VISIT ANNUAL PCP TEAM CHRONIC DISEASE VISIT [facility] Start: 1956 Adult depression screening assessment DEPRESSION SCREENING [facility] Start: 1954 3 comp foot exam completed DIABETIC FOOT EXAM [facility] Start: 1954 Glaucoma screening Diabetes: R etinopathy Screening [facility] Start: 1954 Hepatitis C antibody , confirmatory test DILATED RETINAL EXAM [facility] Start: 1950 Pneumococcal Vaccine : 65+ (1 - PCV) Pneumococcal Vaccine: 65+ (1 - PCV) [facility] Start: 1950 PNEUMOCOCCAL: 65+ (1 - PCV) PNEUMOCOCCAL: 65+ (1 - PCV) [facility] Start: 1945 HEPATITIS A (1 of 2 - Risk 2-dose series) HEPATITIS A (1 of 2 - Risk 2-dose series) [facility] URINALYSIS, REFLEX MICROSCOPIC URINALYSIS, REFLEX MICROSCOPIC Lab Routine Screening for genitourinary condition Ordered: 10/06/2021 [facility] Work Phone: Comment on above: Ordered: 10/06/2021 URINALYSIS, REFLEX MICROSCOPIC URINALYSIS, REFLEX MICROSCOPIC Lab Routine Screening for genitourinary condition Ordered: 04/02/2022 [facility] Work Phone: Comment on above: Ordered: 04/02/2022 End: 11-17-2022 US LEG ARTERIAL PERIPH UNL VAS LAB US LEG ARTERIAL PERIPH UNL VAS LAB Vascular Lab Routine PAD (peripheral artery disease) (HCC) Nonhealing ulcer of heel (HCC) 1 Occurrences starting 11/17/2021 until 11/17/2022 [facility] Work Phone: Comment on above: 1 Occurrences starti ng 11/17/2021 until 11/17/2022 End: 11-17-2022 US LEG VEIN DVT UNL VAS LAB US LEG VEIN DVT UNL VAS LAB Vascular Lab Routine Acute deep vein thrombosis (DVT) of proximal end of right lower extremity (HCC) 1 Occurrences starting 11/17/2021 until 11/17/2022 [facility] Work Phone: Comment on above: 1 Occurrences starti ng 11/17/2021 until 11/17/2022 [facility] MC [facility] & VAS MC [facility] CT & VAS [facility] Immunizations Immunization Date Immunization Notes Care Provider Fa gaston 12-11-2021 COVID-19 booster vaccine, age 12+ yr, bivalent ([employer]) Paresh Fonseca MD Work Phone: [facility] 12-11-2021 influenza, high-dose , quadrivalent vaccine (FLUZONE HIGH DOSE QUADRIVALENT) Paresh Fonseca MD Work Phone: [facility] 12-11-2021 influenza virus vaccine, unspecified formulation [facility] 10-24-2021 influenza, high dose seasonal, preservative-free Ni Petznick DO Work Phone: [facility] 01-19-2019 influenza, high dose seasonal, preservative-free Ni Petznick DO Work Phone: [facility] 11-25-2017 Seasonal trivalent influenza vaccine, adjuvanted, preservative free Ni Petznick DO Work Phone: [facility] 11-05-2016 influenza, high dose seasonal, preservative-free Ni Petznick DO Work Phone: [facility] 07-30-2014 pneumococcal polysaccharide vaccine, 23 valent Ni Petznick DO Work Phone: [facility] 03-09-2011 influenza virus vaccine, unspecified formulation Van Olivarez APRN.[employer]S AND BORDER PROTECTION OFFICER Work Phone: [facility] 12-17-2007 influenza virus vaccine, unspecified formulation Van Olivarez SENIOR ADVOCATE.[facility] Work Phone: [facility] Work Phone: 02-11-2006 influenza virus vaccine, unspecified formulation Van Olivarez SENIOR ADVOCATE.[facility] Work Phone: [facility] Work Phone: 12-07-2003 influenza virus vaccine, unspecified formulation Van Olivarez SENIOR ADVOCATE.[facility] Work Phone: [facility] Work Phone: 12-07-2003 pneumococcal polysaccharide vaccine, 23 valent Van Olivarez SENIOR ADVOCATE.[facility] Work Phone: [facility] Work Phone: NEGATED: Highlighted row has not occurred!12-10-2021 COVID-19 booster vaccine, age 12+ yr, bivalent ([employer]) Paresh Fonseca MD Work Phone: [facility] NEGATED: Highlighted row has not occurred!12-10-2021 influenza, high-dose, quadrivalent vaccine (FLUZONE HIGH DOSE QUADRIVALENT) Paresh Fonseca MD Work Phone: [facility] Payers Date Payer Category Payer Medicare MEDICARE MEDICAR E A AND B [id number] 2009-Present [phone] [address] [address] [place] [address] Medicare [id number] 2009 Medicare [id number] .[id number] 2009 Unknown [employer] MEDICARE SUPPLEMENT [id number] 2009-Present [phone] [address] [address] Indemnity [id number] .[id number] 2009 Unknown [id number]. 1.13.159.2.7.3 .[id number] 2009 Unknown [id number] 2.16.8 40.1.008617.19 2009 Unknown [id number] 1959 Medicare [id number] 1959 Self-pay 1944 Unknown [id number] 2.16.840.1.099882.3.579.2.732 1944 Unknown [id number] 2.16.840.1.803840.3.579.2.593 1944 Unknown [id number] 2.16.840.1.652635.3.579.2.593 1944 Unknown [id number] 2.16.840.1.977469.3.579.2.593 1944 Unknown [id number] 2.16.840.1.099490.3.579.2.593 1944 Unknown [id number] 2.16.840.1.484984.3.579.2.593 1944 Unknown [id number] 2.16.840.1.713303.3.579.2.593 1944 Unknown [id number] 2.16.840.1.975717.3.579.2.593 1944 Unknown [id number] 2.16.840.1.034912.3.579.2.593 1944 Unknown [id number] 2.16.840.1.674822.3.579.2.593 1944 Unknown [id number] 2.16.840.1.050842.3.579.2.593 1944 Unknown [id number] 2.16.840.1.419221.3.579.2.593 1944 Unknown [id number] 2.16.840.1.942444.3.579.2.593 1944 Unknown [id number] 2.16.840.1.314881.3.579.2.593 1944 Unknown [id number] 2.16.840.1.365765.3.579.2.593 1944 Unknown [id number] 2.16.840.1.093328.3.579.2.593 1944 Unknown [id number] 2.16.840.1.823775.3.579.2.593 1944 Unknown [id number] 2.16.840.1.635279.3.579.2.593 1944 Unknown [id number] 2.16.840.1.672643.3.579.2.593 1944 Unknown [id number] 2.16.840.1.846590.3.579.2.593 1944 Unknown [id number] 2.16.840.1.231354.3.579.2.593 1944 Unknown [id number] 2.16.840.1.593417.3.579.2.593 1944 Unknown [id number] 2.16.840.1.719179.3.579.2.593 1944 Unknown [id number] 2.16.840.1.782169.3.579.2.593 1944 Unknown [id number] 2.16.840.1.094092.3.579.2.593 1944 Unknown [id number] 2.16.840.1.782983.3.579.2.593 1944 Unknown [id number] 2.16.840.1.842807.3.579.2.593 1944 Unknown [id number] 2.16.840.1.694908.3.579.2.593 1944 Unknown [id number] 2.16.840.1.866489.3.579.2.593 1944 Unknown [id number] 2.16.840.1.555691.3.579.2.593 1944 Unknown [id number] 2.16.840.1.839091.3.579.2.593 1944 Unknown [id number] 2.16.840.1.308085.3.579.2.593 1944 Unknown [id number] 2.16.840.1.782308.3.579.2.593 1944 Unknown [id number] 2.16.840.1.773481.3.579.2.593 1944 Unknown [id number] 2.16.840.1.488394.3.579.2.593 1944 Unknown [id number] 2.16.840.1.037726.3.579.2.593 1944 Unknown [id number] 2.16.840.1.072877.3.579.2.593 1944 Unknown [id number] 2.16.840.1.362919.3.579.2.593 1944 Unknown [id number] 2.16.840.1.062065.3.579.2.593 1944 Unknown [id number] 2.16.840.1.408788.3.579.2.593 1944 Unknown [id number] 2.16.840.1.793910.3.579.2.593 1944 Unknown [id number] 2.16.840.1.067331.3.579.2.593 1944 Unknown [id number] 2.16.840.1.291680.3.579.2.593 1944 Unknown [id number] 2.16.840.1.715600.3.579.2.593 1944 Unknown [id number] 2.16.840.1.023499.3.579.2.593 1944 Unknown [id number] 2.16.840.1.043157.3.579.2.593 1944 Unknown [id number] 2.16.840.1.712667.3.579.2.593 1944 Unknown [id number] 2.16.840.1.521872.3.579.2.125 9 Medicare Medicare Outpatient [id number] 2T [id number] Unknown [id number] 2.16.840.1.403435.3.579.2.593 Unknown [id number] 2.16.840.1.025862.3.579.2.593 Unknown [id number] 2.16.840.1.474950.3.579.2.531 Social History Date Type Detail Facility Start: 03-09-2011 End: 07-07-2022 Tobacco smoking status NHIS Ex-smoker [facility] Work Phone: End: 02-15-1975 History of tobacco use Current smoker [facility] Work Phone: End: 02-15-1975 History of tobacco use Cigarette Smoker [facility] Work Phone: Start: 04-08-2021 End: 02-26-2022 Alcohol intake Current drinker of alcohol (finding) [facility] Start: 1945 Sex Assigned At Not on file [facility] Start: 03-09-2011 End: 10-20-2022 Cigarettes smoked current (pack per day) - Reported 1 [facility] Work Phone: Start: 03-09-2011 End: 02-26-2022 Tobacco use and exposure Smokeless tobacco non-user [facility] Start: 09-25-2021 History SDOH Financial 5 [facility] Start: 09-25-2021 History SDOH Food Worry 1 [facility] Start: 09-25-2021 History SDOH Transpo rt Med 2 [facility] Start: 09-14-2021 End: 01-12-2022 Exposure to SARS-CoV-2 (event) Not sure [facility] Start: 02-26-2022 End: 10-20-2022 Sex Assigned At [facility] Work Phone: Start: 1945 Sex Assigned At Male F [facility] How hard is it for y ou to pay for the very basics like food, housing, medical care, and heating Not hard at all [facility] Work Phone: (I/We) worried shiloh er (my/our) food would run out before (I/we) got money to buy more. Never true [facility] Work Phone: In the past 12 month s, was there a time when you were not able to pay the mortgage or rent on time? No [facility] Work Phone: Start: 03-18-2023 Alcohol intake Ex-drinker (finding) [facility] How often to you hav e a drink containing alcohol? Never [facility] Medical Equipment Procedure Code Equipment Code Equipment Original Text Equipment Identifier Dates Tray Powerline S urecuff 5fr Polyurethane Catheter 1 Lumen Microintroducer - [id number] Start: 12-06-2021 Clinical Notes 06-05-2021 to 05-19-2023 Note Date & Type Note Facility 05-19-2023 Note [place] Electrophysiology Progress Note Reason for visit: follow [...] about 50-60 systolic. patient with friend/ regional truck driver from facility, we will take patient to the ER for evaluation ---- --------- Per dr. Alvarez 03/2021 Mr. Almonte, [place] , presents to clinic for routine follow [...] of the right coronary artery with robust [id number] collaterals. 5. Normal global left ventricular systolic [...] Follow up with Dr. Galvez in the [facility] in the next 2 weeks; he may follow up with Dr. Orosco as needed for interventional issues. 5. Follow up wi (more content not included)... [facility] 04-11-2023 Evaluation note Encounter Date [...] (ICD-10 - Z89.619) WC dependent. 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 documented in this encounterBarnes-Jewish West [facility] [id number] Evaluation note* Encounter Date Diagnosis Assessment Notes [...] are maintaining regular scheduled appts with their splicing supervisor. No bleeding complications Dec, Hyperlipidemia LDL goal [...] fluid balance and to avoid dehydration. 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 This patient is anticoagulated to prevent thromboembolic events. They are maintaining regular scheduled appts with their splicing supervisor. No bleeding complications Nov, Hyperlipidemia LDL goal [...] Z94.0) Monthly labs to transplant clinic Nov, security compliance specialist (current) use of insulin (ICD-10 - Z79.4) [employer] Other 09-28-2023 Evaluation note* Encounter Date Diagnosis [...] are maintaining regular scheduled appts with their splicing supervisor. No bleeding complications Oct, Type 1 diabetes [...] - Z94.0) Continue routine surveillance labs. 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 DX Code Needed. 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 No bleeding complications Sep, Type 1 diabetes [...] risk for cerebrovascular and cardiovascular disease. 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 Please review and advise. Ariadna Mcdowell, documented in this encounterMarymount Hospital07-27-2023 Evaluation note* Encounter Date Diagnosis Assessment Notes Treatment Notes Treatment Clinical Notes Aug, Longstanding persistent atrial fibrillation (ICD-10 - I48.11) This patient is in NSR or rate controlled. This patient is anticoagulated to prevent thromboembolic events. They are maintaining regular scheduled appts with their splicing supervisor. No s/s bleeding Aug, Type 1 diabetes [...] risk for cerebrovascular and cardiovascular disease. Aug, residential (current) use of insulin (ICD-10 - Z79.4) Aug, Kidney transplant status (ICD-10 - Z94.0) Continue close surveillance w/ [employer] Other 07-26-2023 NoteUT Electrophysiology Consult Note Reason [...] about 50-60 systolic. patient with friend/ regional truck driver from facility, we will take patient to the ER for evaluation --------- Per dr. Alvarez 03/2021 Mr. Almonte, [place] , presents to clinic for routine follow [...] of the right coronary artery with robust [id number] collaterals. 5. Normal global left ventricular systolic [...] Follow up with Dr. Galvez in the [facility] in the next 2 weeks; he may follow up with Dr. Orosco as needed for interventional issues. 5. Follow up with Dr. Devon Moreira as scheduled. PMH: Past Medical History: Diagnosis Date Abnormal ECG Arrhythmia Atrial fibrillation (CMS/HCC) Chronic kidney disease Coronary artery disease Diabetes mellitus (CMS/HCC) (more content not included)...[facility]07-26-2023 NotePatient here for 1.5 year follow up and device check. Lightheaded in the office today, as BP is very low. He denies chest pain, SOB, palpitations, and bleeding on warfarin. Had routine labs last week. Review of Systems Musculoskeletal: Positive for arthritis, joint pain and myalgias. Neurological: Positive for light-headedness. All other systems reviewed and are negative.[facility] 08-06-2022 Evaluation note* Encounter Date [...] are maintaining regular scheduled appts with their splicing supervisor. No bleeding complications Jul, Type 1 diabetes [...] risk for cerebrovascular and cardiovascular disease. Jul, residential (current) use of insulin (ICD-10 - Z79.4) Jul, Kidney transplant status (ICD-10 - Z94.0) Monthly labs, ongoing surveillance from transplant clinic [employer] Other 05-15-2023 Progress note Author Sadia Aguilar [facility] June 29, 2022 2:47pm Note Date/Time June 29, 2022 2:46p m [facility] ENTER [address] [place] [address] Wound Center Provider Note Signed Patient: Alex Amlonte MR#: [id number] : 1945 Acct:[id number] Age/Sex: 76 / M Copies to: DO Sadia Whyte APRN~ HPI Date of Visit Date of Visit: Date of Service: 06/29/2022 Time of Service: 14:45 Narrative HPI: 12/30/21 Alex is a 76 year old male presenting to [facility] wound care for aninitial visit for eval and treatment of a sacral/coccyx area pressure ulcer. He resides at [facility]. There is an MILL MANAGER present for the visit. Medicalhoney gel [...] his brief that was cleaned by this race and sports book writer as well as another nursing staff [...] from initial visit here Mode of Arrival/ [employer] Consultant: Facility vehicle Assistive Device Used Today: Wheelchair and Indra Lives with:: Care/Nursing Facility Appetite Description: Within Normal Limits Who helps w/ dressing change?: Nursing Facility Why Do You Need Help?: Can't Reach Ulcer, Limited mobility and Taxing effort to leave home Smoking Status: Former smoker [facility] Medical History (Updated 03/03/22 @ 14:41 by [...] Ulcer/Injury Staging: Unstageable Bed Appearance: Beefy Red, [place], Yellow and Rolled Edges Percent of Wound [...] <Electronically signed by DAVID Aguilar> 06/29/[address] [facility] Work Phone: 1(628) 285-882205-11-2023 Evaluation note* Encounter Date Diagnosis Assessment Notes [...] are maintaining regular scheduled appts with their splicing supervisor. No bleeding complications June, Hyperlipidemia LDL goal <100 (ICD-10 - E78.5) Instructed on diet and exercise with continued statin therapy.Discussed the beneficial effects of lowering cholesterol in reducing the risk for cerebrovascular and cardiovascular disease. 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) use of insulin (ICD-10 - Z79.4) June, Kidney transplant status (ICD-10 - Z94.0) No s/s rejection [employer] Other 04-24-2023 Progress note Author Sadia Aguilar [facility] June 08, 2022 2:10pm Note Date/Time June 08, 2022 2:1 0pm [facility] ENTER [address] [place] [address] Wound Center Provider Note Signed Patient: Alex Almonte MR#: [id number] : 1945 Acct:[id number] Age/Sex: 76 / M Copies to: DO Sadia Whyte, SENIOR ADVOCATE~ HPI Date of Visit Date of Visit: Date of Service: 06/08/2022 Time of Service: 14:07 Narrative HPI: 12/30/21 Alex is a 76 year old male presenting to [facility] wound care for aninitial visit for eval and treatment of a sacral/coccyx area pressure ulcer. He resides at [facility]. There is an MILL MANAGER present for the visit. Medicalhoney gel [...] his brief that was cleaned by this race and sports book writer as well as another nursing staff [...] from initial visit here Mode of Arrival/ Events Solutions Consultant: Facility vehicle Assistive Device Used Today: Wheelchair and Indra Lives with:: Care/Nursing Facility Appetite Description: Within Normal Limits Who helps w/ dressing change?: Nursing Facility Why Do You Need Help?: Can't Reach Ulcer, Limited mobility and Taxing effort to leave home Smoking Status: Former smoker [facility] Medical History (Updated 03/03/22 @ 14:41 by [...] Ulcer/Injury Staging: Unstageable Bed Appearance: Beefy Red, [place], Yellow and Rolled Edges Percent of Wound [...] <Electronically signed by DAVID Aguilar> 06/08/22 [address] [facility] Work Phone: 1([phone]) 833-407904-21-2023 Evaluation note* Encounter Date Diagnosis Assessment Notes [...] are maintaining regular scheduled appts with their splicing supervisor. May, residential (current) use of insulin (ICD-10 - Z79.4) May, Kidney transplant status (ICD-10 - Z94.0) routine labs per clinic. 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 No open ulcerations present Pain controlled [employer] Other 03-27-2023 Progress note Author Sadia Aguilar [facility] May 11, 2022 1:41pm Note Date/Time May 11, 2022 1:4 0pm [facility] EN[facility] [address] [place] [address] Wound Center Provider Note Signed Patient: Alex Almonte MR#: [id number] : 1945 Acct:[id number] Age/Sex: 76 / M Copies to: DO Sadia Whyte, SENIOR ADVOCATE~ HPI Date of Visit Date of Visit: Date of Service: 05/11/2022 Time of Service: 13:38 Narrative HPI: 12/30/21 Alex is a 76 year old male presenting to [facility] wound care for aninitial visit for eval and treatment of a sacral/coccyx area pressure ulcer. He resides at [facility]. There is an MILL MANAGER present for the visit. Medicalhoney gel [...] his brief that was cleaned by this race and sports book writer as well as another nursing staff [...] from initial visit here Mode of Arrival/ Events Solutions Consultant: Facility vehicle Assistive Device Used Today: Wheelchair and Indra Lives with:: Care/Nursing Facility Appetite Description: Within Normal Limits Who helps w/ dressing change?: Nursing Facility Why Do You Need Help?: Can't Reach Ulcer, Limited mobility and Taxing effort to leave home Smoking Status: Former smoker [facility] Medical History (Updated 03/03/22 @ 14:41 by [...] Ulcer/Injury Staging: Unstageable Bed Appearance: Beefy Red, [place] and Yellow Percent of Wound Bed Granulated/Red: [...] <Electronically signed by DAVID Aguilar> 05/11/22 [address] [facility] Work Phone: [phone] 425-382503-23-2023 Evaluation note* Encounter Date Diagnosis Assessment Notes [...] are maintaining regular scheduled appts with their splicing supervisor. Apr, Type 1 diabetes mellitus with hyperglycemia [...] are reviewed at the office visit Apr, security compliance specialist (current) use of insulin (ICD-10 - Z79.4) Apr, Kidney transplant status (ICD-10 - Z94.0) Serial labs by tatiana Schneider [employer] Other 03-10-2023 NoteHNO ID: [id number] Author: Keyur Brown MD Service: ? Author Type: Physician Type: Progress Notes Filed: 04/24/2022 10:32 AM Note Text: Encounter opened in error, patient not seen.[facility]02-28-2023 Progress note Author Sadia Aguilar [facility] April 14, 2022 2:19pm Note Date/Time April 14, 2022 2:18pm [facility] EN[facility] [address] [place] [address] Wound Center Provider Note Signed Patient: Alex Almonte MR#: [id number] : 1945 Acct:[id number] Age/Sex: 76 / M Copies to: DO Sadia Whyte APRN~ HPI Date of Visit Date of Visit: Date of Service: 04/14/2022 Time of Service: 14:18 Narrative HPI: 12/30/21 Alex is a 76 year old male presenting to [facility] wound care for aninitial visit for eval and treatment of a sacral/coccyx area pressure ulcer. He resides at [facility]. There is an MILL MANAGER present for the visit. Medicalhoney gel [...] his brief that was cleaned by this race and sports book writer as well as another nursing staff [...] from initial visit here Mode of Arrival/ Events Solutions Consultant: Facility vehicle Assistive Device Used Today: Wheelchair and Indra Lives with:: Care/Nursing Facility Appetite Description: Within Normal Limits Who helps w/ dressing change?: Nursing Facility Why Do You Need Help?: Can't Reach Ulcer, Limited mobility and Taxing effort to leave home Smoking Status: Former smoker [facility] Medical History (Updated 03/03/22 @ 14:41 by [...] Ulcer/Injury Staging: Unstageable Bed Appearance: Beefy Red, [place] and Yellow Percent of Wound Bed Granulated/Red: [...] <Electronically signed by DAVID Aguilar> 04/14/[address] [facility] Work Phone: [phone]) 892-786602-16-2023 NotePatient Outreach (KIMBERLY) ALEX ALMONTE ([id number]) 1945 M TRN Date Time Provider Department 04/02/22 VAN OLIVAREZ During your visit today, we recorded the following information about you: Allergies As of Date: 04/02/2022 Noted Allergy Reaction PYRIDOSTIGMINE BROMIDE 08/04/2021 8 - GI Upset Date Reviewed: 02/26/2022 Reviewed by: Braden Abel MA - Fully Assessed Visit Diagnosis:Screening for genitourinary condition [Z13.89] Order(s):URINALYSIS, REFLEX MICROSCOPIC [UOO9967] Order #: [id number] Prescriptions as of 04/06/2022 - tacrolimus IR [...] by mouth daily with lunch. 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/2002 DIABETES UNCOMPL ADULT-UNCONTRLLED [ZMM0818] 02/24/2002 KIDNEY TRANSPLANT STATUS [Z94.0] 09/07/2003 PROPHYLACTIC IMMUNOTHERAPY [Z29.8] 07/30/2006 [facility] STEROIDS [ODM0259] 07/30/2006 VITAMIN D DEFICIENCY NOS [E55.9] 09/07/2008 [...] diabetes mellitus with diabetic peripher*11/29/2021 Atherosclerosis of [place] artery of extremity w*11/29/2021 Malnutrition of moderate degree (HCC) [E44.0] 12/01/2021 Dermatitis associated with moisture [L30.8] 12/04/2021 Encounter Status:Closed by CONCETTA HOBBS on 04/06/22[facility] 03-30-2022 Miscellaneous Notes* Telephone Encounter - Van [...] to pharmacy. Katina Duque documented in this encounterMarymount Hospital02-07-2023 Progress note Author Sadia Aguilar [facility] March 24, 2022 3:00pm Note Date/Time March 24, 2022 2 :59pm [facility] EN[facility] [address] [place] [address] Wound Center Provider Note Signed Patient: Alex Almonte MR#: [id number] : 1945 Acct:[id number] Age/Sex: 76 / M Copies to: DO Sadia Whyte APRN~ HPI Date of Visit Date of Visit: Date of Service: 03/24/2022 Time of Service: 14:58 Narrative HPI: 12/30/21 Alex is a 76 year old male presenting to [facility] wound care for aninitial visit for eval and treatment of a sacral/coccyx area pressure ulcer. He resides at [facility]. There is an MILL MANAGER present for the visit. Medicalhoney gel [...] his brief that was cleaned by this race and sports book writer as well as another nursing staff [...] from initial visit here Mode of Arrival/ Events Solutions Consultant: Facility vehicle Assistive Device Used Today: Wheelchair and Indra Lives with:: Care/Nursing Facility Appetite Description: Within Normal Limits Who helps w/ dressing change?: Nursing Facility Why Do You Need Help?: Can't Reach Ulcer, Limited mobility and Taxing effort to leave home Smoking Status: Former smoker [facility] Medical History (Updated 03/03/22 @ 14:41 by [...] Ulcer/Injury Staging: Unstageable Bed Appearance: Beefy Red, [place] and Yellow Percent of Wound Bed Granulated/Red: [...] <Electronically signed by DAVID Aguilar> 03/24/22 [address] [facility] Work Phone: 1(907) 364-901401-17-2023 Progress note Author Sadia Aguilar [facility] March 03, 2022 2:41pm Note Date/Time March 03, 2022 2 :41pm [facility] [address] [place] [address] Wound Center Provider Note Signed Patient: Alex Almonte MR#: [id number] : 1945 Acct:[id number] Age/Sex: 76 / M Copies to: Devon Moreira,DO Sadia Aguilar APRN~ HPI Date of Visit Date of Visit: Date of Service: 03/03/2022 Time of Service: 14:38 Narrative HPI: 12/30/21 Alex is a 76 year old male presenting to [facility] wound care for aninitial visit for eval and treatment of a sacral/coccyx area pressure ulcer. He resides at [facility]. There is an MILL MANAGER present for the visit. Medicalhoney gel [...] his brief that was cleaned by this race and sports book writer as well as another nursing staff [...] from initial visit here Mode of Arrival/ Events Solutions Consultant: Facility vehicle Assistive Device Used Today: Wheelchair and Indra Lives with:: Care/Nursing Facility Appetite Description: Within Normal Limits Who helps w/ dressing change?: Nursing Facility Why Do You Need Help?: Can't Reach Ulcer, Limited mobility and Taxing effort to leave home Smoking Status: Former smoker [facility] Medical History (Updated 03/03/22 @ 14:41 by [...] Ulcer Pressure Ulcer/Injury Staging: Unstageable Bed Appearance: [place] and Yellow Percent of Wound Bed Granulated/Red: 90 Percent of Devitalized: 10 Length (cm): 2.2 Width (cm): 1.8 Depth (cm): 1.9 CM Sq: 3.960 Surrounding Tissue Appearance: [place], Hyperpigmented and Satellite lesions Surrounding Tissue Temp: [...] <Electronically signed by DAVID Aguilar> 03/03/22 [address] [facility] Work Phone: [phone]) 357-822401-13-2023 Miscellaneous Notes* Telephone Encounter - RAUL Davidson - 02/27/2022 10:24 AM EST Patient phones requesting refills as follows: Per pts sister takes 1 mg in AM and 1 mg in PM Requested Prescriptions Pending Prescriptions Disp Refills tacrolimus IR (PROGRAF) 1 mg capsule Sig: Take 2 capsules by mouth DAILY (6 AM). Please review and advise. RAUL Davidson documented in this encounterMarymount Hospital01-12-2023 NoteHNO ID: [id number] Author: Hina Peterson MD Service: ? 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 Magic Cup [place] with lunch aspirin, enteric coated (ASPIRIN, ENTERIC COATED) 81 mg EC tablet Take 1 tablet by mouth once daily. predniSONE (DELTASONE) 5 mg tablet TAKE 1 TABLET BY MOUTH EVERY DAY oxyCODONE IR (ROXICODONE) 5 mg immediate release tablet 1-2 tablets by ORAL/FEEDING TUBE route every 3 hours as needed. Food Supplement, Lactose-Free (ENSURE MAX (more content not included)... [facility]01-12-2023 History of Present illness Narrative* Hina Peterson MD - 02/26/2022 4:25 PM EST Images from the original note were not included. [facility] DEPARTMENT OF VASCULAR SURGERY OUTPATIENT VISIT DATE [...] maxwell and sutures were removed at the [facility] facility. He comes here with a lateral wound eschar. He denies any fevers, chills, or any drainage. He is on anticoagulation. 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 Magic Cup [place] with lunch aspirin, enteric coated (ASPIRIN, ENTERIC [...] 2022 TIME: 4:26 PM documented in this encounterMarymount Hospital01-05-2023 Miscellaneous Notes* Telephone Encounter - Gwen [...] Home and cell number(Ask for Alex's nurse) [phone] Diagnosis 4 mo f/u wound check Yumiko Mcclain documented in this encounterMarymount Hospital01-05-2023 Miscellaneous Notes* Telephone Encounter - Augusta [...] level. Augusta Medrano RN documented in this encounterMarymount Hospital01-04-2023 Miscellaneous Notes* Telephone Encounter - Martina [...] advise. Mercedez Tavares MA documented in this encounterMarymount Hospital12-27-2022 Progress note Author Sadia Aguilar [facility] February 10, 2022 3:47pm Note Date/Time February 10, 2022 3:47pm [facility] EN[facility] [address] [place] [address] Wound Center Provider Note Signed Patient: Alex Almonte MR#: [id number] : 1945 Acct:[id number] Age/Sex: 76 / M Copies to: DO Sadia Whyte APRN~ HPI Date of Visit Date of Visit: Date of Service: 02/10/2022 Time of Service: 15:44 Narrative HPI: 12/30/21 Alex is a 76 year old male presenting to [facility] wound care for aninitial visit for eval and treatment of a sacral/coccyx area pressure ulcer. He resides at [facility]. There is an MILL MANAGER present for the visit. Medicalhoney gel [...] his brief that was cleaned by this race and sports book writer as well as another nursing staff member, few weeks to follow up Subjective Pain Coccyx: Pain Description: Intermittent Pain Intensity: 0 Wound/Ulcer History When did wound start?: 4 weeks ago- from initial visit here Mode of Arrival/ [employer] Consultant: Facility vehicle Assistive Device Used Today: Wheelchair and Indra Lives with:: Care/Nursing Facility Appetite Description: Within Normal Limits Who helps w/ dressing change?: Nursing Facility Why Do You Need Help?: Can't Reach Ulcer, Limited mobility and Taxing effort to leave home Smoking Status: Former smoker [facility] Medical History (Updated 01/20/22 @ 14:21 by [...] Ulcer Pressure Ulcer/Injury Staging: Unstageable Bed Appearance: [place] and Yellow Percent of Wound Bed Granulated/Red: 90 Percent of Devitalized: 10 Length (cm): 2.5 Width (cm): 2.3 Depth (cm): 2.1 CM Sq: 5.750 Surrounding Tissue Appearance: [place], Hyperpigmented and Satellite lesions Surrounding Tissue Temp: [...] <Electronically signed by DAVID Aguilar> 02/10/22 [address] [facility] Work Phone: 1(591) 969-741012-22-2022 NoteHNO ID: [id number] Author: Asia Pike MD Service: ? Author Type: Physician Type: Progress Notes Filed: 02/05/2022 9:38 AM Note Text: [facility] Follow up Portions of this note [...] and snacks patient declined. Indra scale at [facility]: 166.2 lbs per patient. Bed sore on coccyx causing discomfort. Being changed regularly at SNF- reported to be smaller around but still as deep. Patient not very up to date with medications. Patient brought paperwork from [employer] with all medications being received. Patient unsure if they have been drawing labs regularly. Last Tac from 01/19: 12.9 and K 5.9. In need of current labs. Lab orders will be sent with patient and follows as below: [facility] Standing [facility] [address] [facility] [address] [place], [place] [address] February 05, 2022 Alex Almonte 1945 [id number] STANDARD TESTING: Diagnosis Codes: Z94.0 Kidney Transplant [...] AT YOUR LABORATORY FACILITY AND FAX TO [phone]. PLEASE CALL [phone]. Provider: Dr. Pike Current Outpatient Medications Medication [...] by mouth daily with lunch. Magic Cup [place] with lunch aspirin, enteric coated (ASPIRIN, ENTERIC COATED) 81 mg EC tablet Take 1 tablet by mouth once daily. atorvastatin (LIPITOR) 40 mg tablet 1 tablet by ORAL/FEEDING TUBE route daily at bedtime. (more content not included)...[facility]12-22-2022 History of Present illness Narrative* Asia Pike MD - 02/05/2022 8:20 AM EST Images from the original note were not included. [facility] Follow up Portions of this note [...] and snacks patient declined. Indra scale at [facility]: 166.2 lbs per patient. Bed sore on coccyx causing discomfort. Being changed regularly at [facility]- reported to be smaller around but still as deep. Patient not very up to date with medications. Patient brought paperwork from [employer] with all medications being received. Patient unsure if they have been drawing labs regularly. Last Tac from 01/19: 12.9 and K 5.9. In need of current labs. Lab orders will be sent with patient and follows as below: Kidney and Pancreas Transplant Standing Lab Orders [address] [place], [place] [address] February 05, 2022 Alex Almonte 1945 [id number] STANDARD TESTING: Diagnosis Codes: Z94.0 Kidney Transplant [...] AT YOUR LABORATORY FACILITY AND FAX TO [phone]. PLEASE CALL [phone]. Provider: Dr. Pike Current Outpatient Medications Medication [...] by mouth daily with lunch. Magic Cup [place] with lunch aspirin, enteric coated (ASPIRIN, ENTERIC [...] complexity. Asia Pike MD documented in this encounterMarymount Hospital12-06-2022 Progress note Author Sadia Aguilar [facility] January 20, 2022 2:21pm Note Date/Time January 20, 2022 2 :21pm [facility] [address] [place] [address] Wound Center Provider Note Signed Patient: Alex Almonte MR#: [id number] : 1945 Acct:[id number] Age/Sex: 76 / M Copies to: DO Sadia Whyte APRN~ HPI Date of Visit Date of Visit: Date of Service: 01/20/2022 Time of Service: 14:17 Narrative HPI: 12/30/21 Alex is a 76 year old male presenting to [facility] wound care for aninitial visit for eval and treatment of a sacral/coccyx area pressure ulcer. He resides at [facility]. There is an MILL MANAGER present for the visit. Medicalhoney gel [...] from initial visit here Mode of Arrival/ Events Solutions Consultant: Facility vehicle Assistive Device Used Today: Wheelchair and Indra Lives with:: Care/Nursing Facility Appetite Description: Within Normal Limits Who helps w/ dressing change?: Nursing Facility Why Do You Need Help?: Can't Reach Ulcer, Limited mobility and Taxing effort to leave home Smoking Status: Former smoker [facility] Medical History (Updated 01/20/22 @ 14:21 by [...] Ulcer Pressure Ulcer/Injury Staging: Unstageable Bed Appearance: [place] and Yellow Percent of Wound Bed Granulated/Red: 40 Percent of Devitalized: 60 Length (cm): 5.2 Width (cm): 3.4 Depth (cm): 1.8 CM Sq: 17.680 Surrounding Tissue Appearance: [place] and Hyperpigmented Surrounding Tissue Temp: Warm Drainage [...] <Electronically signed by DAVID Aguilar> 01/20/[address] [facility] Work Phone: 1(589) 156-906912-06-2022 Miscellaneous Notes* Telephone Encounter - Van Olivarez APRN.CNP - 01/20/2022 1:12 PM EST Labs noted from yesterday. Pt is currently residing at [facility], I spoke with the Nurse, the results has been addressed by Physician caring for pt. He had been placed on Chlor Con and this has been discontinued and hyperkalemia has been treated. Van Olivarez APRN.CNP documented in this encounterMarymount Hospital11-28-2022 Surgical operation note* Brief Op Note - Misbah Landis PA-C - 01/12/2022 10:41 AM EST BRIEF OPERATIVE / PROCEDURE NOTE LOG ID: [id number] SURGERY/PROCEDURE DATE: 01/12/2022 INCISION/PROCEDURE START TIME: 10:32 AM INCISION CLOSE/PROCEDURE END TIME: 10:35 AM SURGEON(S)/PROCEDURALIST(S) AND YARD SUPERVISOR(S): Misbah Landis PA-C SURGERY/PROCEDURE(S): Removal tunneled vascular access catheter under local anesthesia ANESTHESIA: Procedural Sedation FINDINGS: Catheter removed intact ESTIMATED BLOOD LOSS: 0 ml SPECIMENS: None COMPLICATIONS: None PRE-OP/PRE-PROCEDURE DIAGNOSIS: Foot Ulcer POST-OP/POST-PROCEDURE DIAGNOSIS: Same as Preop SIGNATURE: Misbah Landis PA-C PATIENT NAME: Alex Almonte DATE: January 12, 2022 TIME: 10:42 AM documented in this encounterMarymount Hospital11-22-2022 Nurse Note* Laxim Archibald RN - 01/06/2022 1:55 PM EST Pre-procedure instructions: Contacted patient's sister, Munira Brothers and nurse at [facility] ([phone]) andconfirmed appt. for Gerhard removal scheduled on 01/12/22, at [facility]. If instructions are not followed your procedure [...] 9:30am to desk B-1 ([facility]) and check in for your procedure. Web Sizer/Transportation: How will you be arriving for your procedure? Ambulance service. To be arranged by [facility]. If you develop any of the following symptoms before your procedure, please call [phone]. Chills, joint pain, rash, sore throat, cough, loss of smell, reddened eyes, vomiting, abdominal pains, diarrhea, loss of taste, severe headache, weakness, bruising or bleeding, fever, muscle pain, shortness of breath Recovery expectations: You can expect to be in recovery for 30 minutes following the procedure. Written instructions provided to patient via [employer]a If you have any questions please call [phone] documented in this encounterMarymount Hospital11-15-2022 Progress note Author Sadia Aguilar [facility] December 30, 2021 1:49pm Note Date/Time December 30, 2021 1:49pm [facility] [address] [place] [address] Wound Center Provider Note Signed Patient: Alex Almonte MR#: [id number] : 1945 Acct:[id number] Age/Sex: 76 / M Copies to: DO Sadia Whyte APRN~ HPI Date of Visit Date of Visit: Date of Service: 12/30/2021 Time of Service: 13:44 Narrative HPI: 12/30/21 Alex is a 76 year old male presenting to [facility] wound care for aninitial visit for eval and treatment of a sacral/coccyx area pressure ulcer. He resides at [facility]. There is an MILL MANAGER present for the visit. Medicalhoney gel [...] start?: 4 weeks ago Mode of Arrival/ Events Solutions Consultant: Facility vehicle Assistive Device Used Today: Wheelchair and Indra Lives with:: Care/Nursing Facility Appetite Description: Within Normal Limits Who helps w/ dressing change?: Nursing Facility Why Do You Need Help?: Can't Reach Ulcer, Limited mobility and Taxing effort to leave home Smoking Status: Former smoker [facility] Medical History (Updated 12/30/21 @ 13:49 by [...] 0.1 CM Sq: 38.500 Surrounding Tissue Appearance: [place] and Hyperpigmented Surrounding Tissue Temp: Warm Drainage [...] <Electronically signed by DAVID Aguilar> 12/30/21 [address] [facility] Work Phone: 1(573) 683-320111-15-2022 History of Present illness Narrative* Paresh Fonseca [...] the rehab facility He is currently at [facility] in [facility] Seen on video together with Zoe -history obtained from bedside nursing. he is getting up in a chair, working with PT diet is back to regular hes doing well. 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 has scabs on the R lateral side but no wound care concerns. It continues to heal. He has a follow-up with vascular surgery later December 2021. has a sacral wound -- he has local wound care following this at [facility] WBC 6.0, creatinine -- 0.8. [...] by mouth daily with lunch. Magic Cup [place] with lunch aspirin, enteric coated (ASPIRIN, ENTERIC [...] is a 76 year old male from [facility]. Here today for copat follow-up for vancomycin x4 weeks for MRSA bacteremia He was transferred from [facility] TO [facility] on 11/28/2021 for [...] 3. Status post right heel I&D at [facility] on 11/24/2021. 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 4. CKD - s/p gerhard placement 5. immunocompromised Status post right open above the ankle [id number]/17 - Enterobacter and MRSA from cultures Gram-positive [...] will need to coordinate with his SNF [phone] --our ID office will need to arrange for IR gerhard removal. Return to ID as needed 10 Minutes spent via virtual visit. SIGNATURE: Paresh Fonseca MD PATIENT NAME: Alex Almonte DATE: December 30, 2021 TIME: 9:52 AM documented in this encounterMarymount Hospital11-01-2022 Miscellaneous Notes* Telephone Encounter - Sulma Pardo - 12/16/2021 3:13 PM EDT Pt director physical therapy is requesting orders for Stomp ampushield to be taken off pressure relief because it is causing sores on the thigh. Thanks, Sulma Pardo Acoustical Tile Patternmaker documented in this encounterMarymount Hospital10-31-2022 Miscellaneous Notes* Telephone Encounter - Gwen Alfredo Adm Asst I - 12/15/2021 4:11 PM EDT Rupa LYLES from [facility] [phone] called to report IV Vancomycin was started until today. Patient missed 3 days, should patient makeup missed doses? Please advise. Gwen Alfredo Adm Asst I documented in this encounterMarymount Hospital10-21-2022 Instructions* Patient Instructions* Paresh Fonseca MD [...] serious illness Are taking any medications (prescription, giet-pdy-duusclz, vitamins, or herbal products) How will I receive EVUSHELD? EVUSHELD consists of two investigational medicines, tixagevimab and cilgavimab. You will receive 1 dose of EVUSHELD, consisting of 2 separate injections (tixagevimab and cilgavimab). EVUSHELD will be given to you by your healthcare provider as 2 intramuscular injections, given one after the other. Viruses can gear changer time (mutate) and develop into a [...] caused by certain SARS-CoV-2 variants: Viruses can gear changer time (mutate) and develop into a [...] treatment or prevention of COVID-19 go to https://www.fda.gov/slwvdriyl-oyfixkmmgcsw-amy- response/nid-xwmqh-yqprwpgtnr-vgu-mibhkp-szcpzksdu/mlzbdamnf-uqb-wgeurqalnmmzk for more information. It is your choice [...] not go away. Report side effects to [employer] at www.fda.gov/medTopaz Energy and [employer] or call 3-126-BTE-1088 or call [employer] . Additional Information If you have questions, visit the website or call the telephone number provided below. Website Telephone number http://www.[employer]ience [employer]. How can I learn more about COVID-19? Ask your healthcare provider. Visit https://www.cdc.gov/COVID19 Contact your local or state public health department. What is an Emergency Use Authorization? The [place] FDA has made EVUSHELD (tixagevimab co-packaged with cilgavimab) available under an emergency access mechanism called an Emergency Use Authorization EUA. The EUA is supported by a [place] of Health and Human Service (HHS) declaration [...] monohydrate, polysorbate 80, sucrose, water. Distributed by: [employer] [place], [place] Manufactured for: [employer] [place], [place] [employer] 2021. All rightsreserved. documented in this encounterMarymount Hospital10-21-2022 Miscellaneous Notes* Telephone Encounter - Paresh Fonseca MD - 12/05/2021 3:05 PM EDT Evusheld (tixagevimab/cilgavimab) Eligibility and Patient Discussion The patient agrees to receive Evusheld (tixagevimab 300 mg and cilgavimab 300 mg) at [place]. The patient verbalized understanding of repeating a COVID test 72 hours prior to the injections. called up patient in response to her SeekSherpahart message today she tested covid negative on a rapid test on Wednesday this week Discussed evushed fact sheet and she agrees to proceed she will retest again today to be scheduled for Friday 12/08 at [facility] Paresh Fonseca MD documented in this encounterMarymount Hospital10-03-2022 Instructions* Patient Instructions* No Reeder DO - 11/17/2021 4:26 PM EDT -- continue coumadin -- will get vascular ultrasound for vein and artery of your right leg -- will have you see my interventional cardiology partner regarding your peripheral artery disease and if your artery disease is impairing your wound healing for the leg ulcer documented in this encounterMarymount Hospital10-03-2022 History of Present illness Narrative* No Reeder DO - 11/17/2021 3:53 PM EDT Images from the original note were not included. [facility] Department of Cardiovascular Medicine SECTION [...] DVT scan. Leg elevation. No Reeder DO, [facility] Vascular Medicine documented in this encounterMarymount Hospital08-16-2022 History of Past illness Narrative* Problem Noted Date Resolved Date Altered tissue perfusion documented as of this encounter (statuses as of 09/30/2021) [address]16-2022 History of Past illness Narrative* Problem Noted Date Resolved Date Altered tissue perfusion documented as of this encounter (statuses as of 10/09/2021) [address]16-2022 History of Past illness Narrative* Problem Noted Date Resolved Date Altered tissue perfusion documented as of this encounter (statuses as of 11/18/2021) [address]16-2022 History of Past illness Narrative* Problem Noted Date Resolved Date Altered tissue perfusion documented as of this encounter (statuses as of 12/01/2021) [address]16-2022 History of Past illness Narrative* Problem Noted Date Resolved Date Altered tissue perfusion documented as of this encounter (statuses as of 12/05/2021) [address]16-2022 History of Past illness Narrative* Problem Noted Date Resolved Date Altered tissue perfusion documented as of this encounter (statuses as of 12/08/2021) [address]16-2022 History of Past illness Narrative* Problem Noted Date Resolved Date Altered tissue perfusion 08/16/2 022 documented as of this encounter (statuses as of 12/08/2021) [address]16-2022 History of Past illness Narrative* Problem Noted Date Resolved Date Altered tissue perfusion 2 022 documented as of this encounter (statuses as of 12/12/2021) [address]16-2022 History of Past illness Narrative* Problem Noted Date Resolved Date Altered tissue perfusion 2 022 documented as of this encounter (statuses as of 12/15/2021) [address]16-2022 History of Past illness Narrative* Problem Noted Date Resolved Date Altered tissue perfusion 2 022 documented as of this encounter (statuses as of 12/16/2021) [address]16-2022 History of Past illness Narrative* Problem Noted Date Resolved Date Altered tissue perfusion 2 022 documented as of this encounter (statuses as of 12/31/2021) [address]16-2022 History of Past illness Narrative* Problem Noted Date Resolved Date Altered tissue perfusion 2 022 documented as of this encounter (statuses as of 01/13/2022) [address]16-2022 History of Past illness Narrative* Problem Noted Date Resolved Date Altered tissue perfusion 09/30/2 022 documented as of this encounter (statuses as of 01/20/2022) [address]16-2022 History of Past illness Narrative* Problem Noted Date Resolved Date Altered tissue perfusion 2 022 documented as of this encounter (statuses as of 02/06/2022) [address]16-2022 History of Past illness Narrative* Problem Noted Date Resolved Date Altered tissue perfusion 16/2 022 documented as of this encounter (statuses as of 02/20/2022) [address]16-2022 History of Past illness Narrative* Problem Noted Date Resolved Date Altered tissue perfusion 16/2 022 documented as of this encounter (statuses as of 02/26/2022) [address]16-2022 History of Past illness Narrative* Problem Noted Date Resolved Date Altered tissue perfusion 16/2 022 documented as of this encounter (statuses as of 02/27/2022) [address]16-2022 History of Past illness Narrative* Problem Noted Date Resolved Date Altered tissue perfusion documented as of this encounter (statuses as of 03/21/2022) [address]16-2022 History of Past illness Narrative* Problem Noted Date Resolved Date Altered tissue perfusion documented as of this encounter (statuses as of 03/30/2022) [address]16-2022 History of Past illness Narrative* Problem Noted Date Resolved Date Altered tissue perfusion documented as of this encounter (statuses as of 04/06/2022) [address]16-2022 History of Past illness Narrative* Problem Noted Date Resolved Date Altered tissue perfusion documented as of this encounter (statuses as of 05/13/2022) [address]16-2022 History of Past illness Narrative* Problem Noted Date Diagnosed Date Resolved Date Altered tissue perfusion documented as of this encounter (statuses as of 2022) [address]16-2022 History of Past illness Narrative* Problem Noted Date Diagnosed Date Resolved Date Altered tissue perfusion documented as of this encounter (statuses as of 10/29/2022) [facility] Miscellaneous Notes* Telephone Encounter - Katina [...] to pharmacy. Katina Duque documented in this encounterMarymount Hospital05-31-2022 Miscellaneous Notes* Telephone Encounter - Van [...] advise. Rosibel Link Adm documented in this encounterMarymount Hospital04-21-2022 Miscellaneous Notes* Telephone Encounter - Van Olivarez APRN.CNP - 06/05/2021 4:46 PM EDT Spoke with pt regarding latest results, scr. at baseline. TAC level 8.6 prev two levels in 5 range.He believes latest level would be 12hr trough. No changes for now, if next level >7, can consider if reduction appropriate. He understands. Van Olivarez APRN.CNP [facility]Det[facility]* Diagnosis Screening for genitourinary condition Screening for other and unspecified genitourinary condition documented in this encounter [facility]* Diagnosis Acute deep vein thrombosis (DVT) of proximal end of right lower extremity (HCC)- Primary PAD (peripheral artery disease) ([facility]) Peripheral vascular disease, unspecified Nonhealing ulcer of heel ([facility]) Anticoagulation management encounter Encounter for therapeutic drug monitoring [facility]* Diagnosis Encounter for prophylactic measures, unspecified- Primary documented in this encounter [facility]* Diagnosis Kidney replaced by transplant- Primary documented in this encounter [facility]* Diagnosis MRSA bacteremia- Primary Bacteremia Diabetic foot ulcer with osteomyelitis ([facility]) Type II or unspecified type diabetes mellitus with other specified manifestations, not stated as uncontrolled ILIANA (acute kidney injury) ([facility]) Acute kidney failure, unspecified documented in this encounter [facility] note* Diagnosis Kidney replaced by transplant- Primary 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 residential current use of immunosuppressive drug documented in this encounter [facility] note* Diagnosis Hx of BKA, [...] (HCC) Atrial fibrillation documented in this encounter [facility] note* Diagnosis Screening for genitourinary condition Screening for other and unspecified genitourinary condition documented in this encounter [facility] note* Diagnosis Onset Date Resolution Status At high risk for skin breakdown chronic Diabetes chronic Fecal incontinence chronic Limited mobility chronic Poor appetite chronic Pressure ulcer of sacral region, unstageable chronic Candidiasis resolved [facility] Work Phone: Evaluation noteNo MapMyIDNortstylefruits Other Evaluation note* Diagnosis Kidney replaced by transplant- Primary documented in this encounter [facility] note* Diagnosis Type 1 diabetes mellitus with [...] COLONOSCOPY 1995,2001, 2014 Hospitalization History see above [employer] Other Progress note Author Sadia Aguilar [facility] July 20, 2022 1:48pm Note Date/Time July 20, 2022 1:48p m [facility] [address] [place] [address] Wound Center Provider Note Signed Patient: Alex Almonte MR#: [id number] : 1945 Acct:[id number] Age/Sex: 76 / M Copies to: Devon Moreira,DO Sadia Aguilar, SENIOR ADVOCATE~ HPI Date of Visit Date of Visit: Date of Service: 07/20/2022 Time of Service: 13:46 Narrative HPI: 12/30/21 Alex is a 76 year old male presenting to [facility] wound care for aninitial visit for eval and treatment of a sacral/coccyx area pressure ulcer. He resides at [facility]. There is an MILL MANAGER present for the visit. Medicalhoney gel [...] his brief that was cleaned by this race and sports book writer as well as another nursing staff [...] from initial visit here Mode of Arrival/ Events Solutions Consultant: Facility vehicle Assistive Device Used Today: Wheelchair and Indra Lives with:: Care/Nursing Facility Appetite Description: Within Normal Limits Who helps w/ dressing change?: Nursing Facility Why Do You Need Help?: Can't Reach Ulcer, Limited mobility and Taxing effort to leave home Smoking Status: Former smoker [facility] Medical History (Updated 03/03/22 @ 14:41 by [...] <Electronically signed by DAVID Aguilar> 07/20/22 [address] [facility] Work Phone: Reason for referral (narrative)* Outpatient Procedure (Routine) - Authorized Specialty Diagnoses / Procedures Referred By Contac t Referred To Contact [facility] Diagnoses PAD (peripheral artery disease) (HCC) Nonhealing ulcer of heel (HCC) Procedures US LEG ARTERIAL PERIPH UNL VAS LAB DUP-SCAN LXTR ART/ARTL BPGS UNI/LMTD STUDY No Reeder DO [address] [place] [address] [facility] [place] [address] Referral ID Status Reason Start Date Expiration Date Visits Requested Visits Authorized [id number] Authorized Auto-Generat ed Referral 11/17/2021 11/17/2022 1 1 * Outpatient Procedure (Routine) - Authorized Specialty Diagnoses / Procedures Referred By Contac t Referred To Contact [facility] Diagnoses Acute deep vein thrombosis (DVT) of proximal end of right lower extremity (HCC) Procedures US LEG VEIN DVT UNL VAS LAB DUP-SCAN XTR VEINS UNILATERAL/LIMITED STUDY No Reeder DO [address] [address] [facility] [address] [place] [address] Referral ID Status Reason Start Date Expiration Date Visits Requested Visits Authorized [id number] Authorized Auto-Generat ed Referral 11/17/2021 11/17/2022 1 1 * Consult, Test, Treat (Routine) - Authorized Specialty Diagnoses / Procedures Referred By Contkendra t Referred To Contact Cardiology Diagnoses PAD (peripheral artery disease) (HCC) Nonhealing ulcer of heel (HCC) Procedures CONSULT TO CARDIOLOGY OFFICE/OUTPATIENT [facility] 60-74 MINUTES Savanah Marcelo MD [address] [place] [address] Referral ID Status Reason Start Date Expiration Date Visits Requested Visits Authorized [id number] Authorized PCP Requested Referral 11/17/2021 11/17/2022 1 1 [facility] Summary Purpose Family History No Family History Records Found Relationship Condition Age at Onset Recorded Date/T kartik father Aneurysm Unknown father Parkinson's disease Unknown Advance Directives No Advanced Directives Records FoundDocuments on File Type Date Recorded Patient Nutrition Assistant Expl anation Advance Directive(s) Latest Code Status [...] Maker Relationship: M ajority of Adult Siblings (national sales representative) DNR-CCA 09/26/2021 11:56 AM 10/01/2021 [...] Decision Maker Relationship: Majority of Adult Siblings (national sales representative) Code Status History Code Status [...] Reason for Visit Chief Complaint Open Wound ([facility]) Reason for Visit At [...] AUTHOR AUTHOR'S ORGANIZ ATION 07/25/2022 [facility] DATE CREATED AUTHOR AUTHOR'S ORGANIZ ATION 08/16/2022 [facility] DATE CREATED AUTHOR AUTHOR'S ORGANIZ ATION 01/14/2023 [facility] DATE CREATED AUTHOR AUTHOR'S ORGANIZ ATION 03/20/2023 [facility] dical [facility] DATE CREATED AUTHOR AUTHOR'S ORGANIZ ATION 05/25/2023 [facility] Source Comments (unrecognize d section and content) In the event this informatio n is protected by the Federal Confidentiality of Alcohol and Drug Abuse Patient Records regulations: The Federal rules restrict any use of the information to criminally investigate or prosecute any alcohol or drug abuse patient.[facility] HospitalIn the event this information is protected by the Federal Confidentiality of Alcohol and Drug Abuse Patient Records regulations: The Federal rules restrict any use of the information to criminally investigate or prosecute any alcohol or drug abuse patient.[facility] HospitalIn the event this information is protected by the Federal Confidentiality of Alcohol and Drug Abuse Patient Records regulations: The Federal rules restrict any use of the information to criminally investigate or prosecute any alcohol or drug abuse patient.[facility] HospitalIn the event this information is protected by the Federal Confidentiality of Alcohol and Drug Abuse Patient Records regulations: The Federal rules restrict any use of the information to criminally investigate or prosecute any alcohol or drug abuse patient.[facility] HospitalIn the event this information is protected by the Federal Confidentiality of Alcohol and Drug Abuse Patient Records regulations: The Federal rules restrict any use of the information to criminally investigate or prosecute any alcohol or drug abuse patient.[facility] HospitalIn the event this information is protected by the Federal Confidentiality of Alcohol and Drug Abuse Patient Records regulations: The Federal rules restrict any use of the information to criminally investigate or prosecute any alcohol or drug abuse patient.[facility] HospitalIn the event this information is protected by the Federal Confidentiality of Alcohol and Drug Abuse Patient Records regulations: The Federal rules restrict any use of the information to criminally investigate or prosecute any alcohol or drug abuse patient.[facility] HospitalIn the event this information is protected by the Federal Confidentiality of Alcohol and Drug Abuse Patient Records regulations: The Federal rules restrict any use of the information to criminally investigate or prosecute any alcohol or drug abuse patient.[facility] HospitalIn the event this information is protected by the Federal Confidentiality of Alcohol and Drug Abuse Patient Records regulations: The Federal rules restrict any use of the information to criminally investigate or prosecute any alcohol or drug abuse patient.[facility] HospitalIn the event this information is protected by the Federal Confidentiality of Alcohol and Drug Abuse Patient Records regulations: The Federal rules restrict any use of the information to criminally investigate or prosecute any alcohol or drug abuse patient.[facility] HospitalIn the event this information is protected by the Federal Confidentiality of Alcohol and Drug Abuse Patient Records regulations: The Federal rules restrict any use of the information to criminally investigate or prosecute any alcohol or drug abuse patient.[facility] HospitalIn the event this information is protected by the Federal Confidentiality of Alcohol and Drug Abuse Patient Records regulations: The Federal rules restrict any use of the information to criminally investigate or prosecute any alcohol or drug abuse patient.[facility] HospitalIn the event this information is protected by the Federal Confidentiality of Alcohol and Drug Abuse Patient Records regulations: The Federal rules restrict any use of the information to criminally investigate or prosecute any alcohol or drug abuse patient.[facility] HospitalIn the event this information is protected by the Federal Confidentiality of Alcohol and Drug Abuse Patient Records regulations: The Federal rules restrict any use of the information to criminally investigate or prosecute any alcohol or drug abuse patient.[facility] HospitalIn the event this information is protected by the Federal Confidentiality of Alcohol and Drug Abuse Patient Records regulations: The Federal rules restrict any use of the information to criminally investigate or prosecute any alcohol or drug abuse patient.[facility] HospitalIn the event this information is protected by the Federal Confidentiality of Alcohol and Drug Abuse Patient Records regulations: The Federal rules restrict any use of the information to criminally investigate or prosecute any alcohol or drug abuse patient.[facility] HospitalIn the event this information is protected by the Federal Confidentiality of Alcohol and Drug Abuse Patient Records regulations: The Federal rules restrict any use of the information to criminally investigate or prosecute any alcohol or drug abuse patient.[facility] HospitalIn the event this information is protected by the Federal Confidentiality of Alcohol and Drug Abuse Patient Records regulations: The Federal rules restrict any use of the information to criminally investigate or prosecute any alcohol or drug abuse patient.[facility] HospitalIn the event this information is protected by the Federal Confidentiality of Alcohol and Drug Abuse Patient Records regulations: The Federal rules restrict any use of the information to criminally investigate or prosecute any alcohol or drug abuse patient.[facility] HospitalIn the event this information is protected by the Federal Confidentiality of Alcohol and Drug Abuse Patient Records regulations: The Federal rules restrict any use of the information to criminally investigate or prosecute any alcohol or drug abuse patient.[facility] HospitalIn the event this information is protected by the Federal Confidentiality of Alcohol and Drug Abuse Patient Records regulations: The Federal rules restrict any use of the information to criminally investigate or prosecute any alcohol or drug abuse patient.[facility] HospitalIn the event this information is protected by the Federal Confidentiality of Alcohol and Drug Abuse Patient Records regulations: The Federal rules restrict any use of the information to criminally investigate or prosecute any alcohol or drug abuse patient.[facility] HospitalIn the event this information is protected by the Federal Confidentiality of Alcohol and Drug Abuse Patient Records regulations: The Federal rules restrict any use of the information to criminally investigate or prosecute any alcohol or drug abuse patient.[facility] HospitalIn the event this information is protected by the Federal Confidentiality of Alcohol and Drug Abuse Patient Records regulations: The Federal rules restrict any use of the information to criminally investigate or prosecute any alcohol or drug abuse patient.[facility] HospitalIn the event this information is protected by the Federal Confidentiality of Alcohol and Drug Abuse Patient Records regulations: The Federal rules restrict any use of the information to criminally investigate or prosecute any alcohol or drug abuse patient.[facility] HospitalIn the event this information is protected by the Federal Confidentiality of Alcohol and Drug Abuse Patient Records regulations: The Federal rules restrict any use of the information to criminally investigate or prosecute any alcohol or drug abuse patient.[facility] Reason for Visit (unrecogniz ed section [...] Care Teams (unrecognized sec tion and content) Payroll Tax Analyst Relationship Specialty Start Date End Date LillieDevon, DO [address] [place] [facility] [place] [address] PCP - General 05/27/00 Payroll Tax Analyst Relationship Specialty Start Date End Date Devon Moreira, DO [address] [facility] [place] [address] PCP - General 05/27/00 Payroll Tax Analyst Relationship Specialty Start Date End Date Devon Moreira, DO [address] [place] [facility] [place] [address] PCP - General 05/27/00 Payroll Tax Analyst Relationship Specialty Start Date End Date Lillie Devon García, DO [address] [place] [address] PCP - General 05/27/00 Payroll Tax Analyst Relationship Specialty Start Date End Date Devon Moreira, DO [address] [place] [address] PCP - General 05/27/00 Payroll Tax Analyst Relationship Specialty Start Date End Date Devon Moreira, DO [address] [place] [address] PCP - General 05/27/00 Payroll Tax Analyst Relationship Specialty Start Date End Date Devon Moreira, DO [address] [place] [address] PCP - General 05/27/00 Payroll Tax Analyst Relationship Specialty Start Date End Date Devon Moreira, DO [address] [place] [address] PCP - General 05/27/00 Payroll Tax Analyst Relationship Specialty Start Date End Date Devon Moreira, DO [address] [place] [address] PCP - General 05/27/00 Payroll Tax Analyst Relationship Specialty Start Date End Date Devon Moreira, DO [address] [place] [address] PCP - General 05/27/00 Payroll Tax Analyst Relationship Specialty Start Date End Date Devon Moreira, DO [address] [place] [address] PCP - General 05/27/00 Payroll Tax Analyst Relationship Specialty Start Date End Date Devon Moreira, DO [address] [place] [address] PCP - General 05/27/00 Payroll Tax Analyst Relationship Specialty Start Date End Date Devon Moreira, DO [address] [place] [address] PCP - General 05/27/00 Payroll Tax Analyst Relationship Specialty Start Date End Date Devon Moreira, DO [address] [place] [address] PCP - General 05/27/00 Payroll Tax Analyst Relationship Specialty Start Date End Date Devon Moreira, DO [address] [place] [address] PCP - General 05/27/00 Payroll Tax Analyst Relationship Specialty Start Date End Date Devon Moreira, DO [address] [place] [place] [address] PCP - General 05/27/00 Payroll Tax Analyst Relationship Specialty Start Date End Date Devon Moreira, DO [address] [place] [place] [address] PCP - General 05/27/00 Payroll Tax Analyst Relationship Specialty Start Date End Date LillieDevon, DO [address] [place] [place] [address] PCP - General 05/27/00 Payroll Tax Analyst Relationship Specialty Start Date End Date Lillie Devon Raquel, DO [address] [place] [place] [address] PCP - General 05/27/00 Team Status: Active Member Role Status Franklin Moreira DO Primary Care Provider Active Team Status: Inactive Member Role Status Franklin Moreira DO Primary Care Provider Active Sadia Aguilar APRN Attending Provider Active Payroll Tax Analyst Relationship Specialty Start Date End Date Devon Moreira DO [address] [place] [place] [address] PCP - General 05/27/00 Payroll Tax Analyst Relationship Specialty Start Date End Date Devon Moreira DO [address] [place] [place] [address] PCP - General 05/27/00 Payroll Tax Analyst Relationship Specialty Start Date End Date Ni Cabrera, DO [address] [place] [address] PCP - ACO Reach 07/09/22 Devon Moreira MD [address] [place] [id number] PCP - General Internal Medicine 07/14/22 PRN Active and Recently Administ ered Medications (unrecognized section and content) Medication Order 01/10/2022 01/11/2022 01/12/2022 lidocaine (PF) 10 mg/mL (1 %) injection (XYLOCAINE) SUBCUTANEOUS, X (OR/PROCEDURE) PRN, Starting on Wed01/12/22 at 1032, Until Wed01/13/22 at 0303, Intraprocedure 1032 (Given - Provid er: Vani Hdz APRN.CUSTOMS AND BORDER PROTECTION OFFICER) Goals (unrecognized section and content) Goals may [...] BE BASED ON THE PRIMARY CLINICAL RECORDS. [email or web address] provides no warranty or guarantee of the accuracy or completeness of information in this document.
[2023-06-16 07:58] LABS: Basophils Absolute Auto 0.1 10^3/uL (0.0-0.1); Basophils Percent Auto 0.6 % (0.2-2.0); Eosinophils Absolute Auto 0.4 10^3/uL (0.0-0.7); Eosinophils Percent Auto 4.9 % (0.9-7.0); Hematocrit 29.3 % (42.0-54.0); Hemoglobin 9.2 g/dL (14.0-18.0); Immature Granulocytes Abs Auto 0.03 10^3/uL (0.00-0.03); Immature Granulocytes Pct Auto 0.4 % (0.0-0.5); Lymphocytes Absolute Auto 2.6 10^3/uL (1.2-3.8); Lymphocytes Percent Auto 33.8 % (20.5-60.0); Mean Corpuscular HGB Conc 31.4 g/dL (29.9-35.2); Mean Corpuscular Hemoglobin 25.6 pg (25.9-34.0); Mean Corpuscular Volume 81.6 fL (80.0-94.0); Mean Platelet Volume 10.4 fL (9.5-13.5); Monocytes Absolute Auto 0.9 10^3/uL (0.3-0.8); Monocytes Percent Auto 11.2 % (1.7-12.0); Neutrophils Absolute Auto 3.8 10^3/uL (1.4-6.5); Neutrophils Percent Auto 49.1 % (43.0-75.0); Platelet Count 245 10^3/uL (150-450); Red Blood Count 3.59 10^6/uL (4.70-6.10); Red Cell Distribution Width 15.6 % (11.0-15.0); White Blood Count 7.8 10^3/uL (4.0-11.0)
[2023-06-16 08:04] LABS: INR 2.46; Prothrombin Time 24.8 sec (9.0-11.6)
[2023-06-16 08:10] LABS: Alanine Aminotransferase 15 U/L (16-63); Albumin Globulin Ratio 0.8; Albumin Level 2.7 g/dL (3.4-5.0); Alkaline Phosphatase 87 U/L (46-116); Anion Gap 12.6; Aspartate Amino Transferase 17 U/L (15-37); BUN Creatinine Ratio 29.3; Bilirubin Total 0.6 mg/dL (0.2-1.0); Calcium 8.6 mg/dL (8.5-10.1); Carbon Dioxide 27.3 mmol/L (21.0-32.0); Chloride 104 mmol/L (98-107); Estimated GFR (African America 55 (>=60); Estimated GFR (Non-African Ame 45 (>=60); Globulin 3.3 g/dL; Glucose 96 mg/dL (74-106); Potassium 3.9 mmol/L (3.5-5.1); Sodium 140 mmol/L (136-145)
[2023-06-19 00:06] LABS: Tacrolimus (FK506), Blood 4.9 ng/mL (2.0-20.0)
== END 2023-06-16 00:45 | disposition home or self-care (01) ==
LOC: LAB 00:44
PROVIDERS: PCP Internal Medicine; Visit Provider Internal Medicine
DX: N18.9 Chronic kidney disease, unspecified (principal)
CPT/HCPCS: 36415; 80053; 80197; 85025; 85610

== ENCOUNTER 2023-06-16 04:42 | Outpatient (RCR) | payer MEDICARE, OTHER, SELFPAY | END 2023-07-16 12:05 | disposition home or self-care (01) | LOC: MM 04:42 | PROVIDERS: PCP Internal Medicine; Visit Provider Internal Medicine | DX: Z51.81 Encounter for therapeutic drug level monitoring (principal); Z79.01 Long term (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 of anticoagulants; I82.409 Acute embolism and thrombosis of unspecified deep veins of unspecified lower extremity ==

== ENCOUNTER 2023-06-23 02:04 | Outpatient (REF) | payer MEDICARE, OTHER, SELFPAY ==
--- OUTSIDE RECORDS SUMMARY | 2023-06-23 02:11 | XMS_ITS | CCD ---
Author Organization [facility] Care Team Providers Care Manager Research Name Role Phone PROVIDER, UNKNOWN Attending Unavailable [...] Unavailable NABEEL, DR PROSPER Douglas Consulting Unavailable GRECHNY ., ALEJA TORRES Consulting Unavailabl e MARKER ., DR WASHINGTON Consulting Unavailable KANCHAN ., MARY ANN Consulting Unavailable BACHRACHKARTHIK Consulting Unavailable ASHLEY GARIBAY Admitting Unavailable PHOENIX, ASHLEY Cortes Attending Unavailable MARIAELENA, DR RICH Hernandez Consulting Unavailable LILLIE, DR TAM Primary Care Unavailable ASHLEY GARIBAY Consulting Unavailable BALL, DR TAM Primary Care Unavailable BROTHERS, BRANDI Attending Unavailable BROTHERS, BRANDI Admitting Unavailable BROTHERS, BRANDI Consulting Unavailable BALL, DR TAM Consulting Unavailable BALL, [...] DR TAM Primary Care Unavailable FAGGIONATO, ARTUR Consulting Unavailable [...] Unavailable BALL, DR TAM Primary Care Unavailable KATKOWILLIAM Attending Unavailable TODD, [...] Unavailable Devon Moreira MD Primary Care Provider CAITY IBRAHIM Attending Unavailable MILAGRO QUEEN Referring Unavailable SARTHAK PARNELL Attending Unavailable NI CABRERA Attending Unavailable DEVON MOREIRA Referring Unavailable NI CABRERA Attending Unavailable DEVON MOREIRA Referring Unavailable Allergies Allergy Classification Reported Allergen(s) Allergy Type Date of Onset Reaction(s) Facility (20 sources) Pyridostigmine; Translations: [PYRIDOSTIGMINE BROMIDE] Drug Allergy 2 GI Upset [place] Work Phone: (1 source) Pyridostigmine Drug Allergy [...] Indications: Type 1 diabetes mellitus with nephropathy ([facility]) 3 units breakfast, 5 units lunch, [...] 10 units and notify provider K Phos Luna-Sod Phos Di & Luna [id number] MG (6 sources) take 155-852 tablets by mouth twice daily K Phos Luna-Sod Phos Di & Luna 155-852-130 MG 1 tablet Orally twice daily Active take 155-852 tablets by mouth four times daily take 155-852 tablets by mouth four times daily K Phos Luna-Sod Phos Di & Luna 155-852-130 MG 1 tablet Orally Four times [...] by mouth daily with lunch. Magic Cup [place] with lunch 7110 mL 0 12/11/2021 Active Comment on above: Take 237 mL by mouth daily with lunch. 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 USE OF INSULIN] Onset: 2 Episodic Other aftercare (5 sources) nursing home (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 of anticoagulants; Translations: [PENITENTIARY CURRNT USE ANTICOAGULANTS] Onset: 3 Episodic Other [...] 07-30-2006 Episodic Other aftercare (2 sources) Other intermediate project manager (current) drug therapy; Translations: [OTH SPECIAL DELIVERY WORKER CURRENT DRUG THERAPY] Onset: 02-05-2022 Episodic Other aftercare (4 sources) Encounter for orthopedic aftercare following surgical amputation; Translations: [ENC ORTHOPED AFTERCARE FLW SURG AMP] Onset: 02-05-2022 Episodic Other aftercare (4 sources) nursing home (current) use of antibiotics; Translations: [SPECIAL DELIVERY WORKER CURRENT USE ANTIBIOTICS] Onset: 12-20-2021 Episodic Other aftercare (1 source) 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; Translations: [PENITENTIARY CURRENT USE OF ASPIRIN] Onset: 01-19-2022 Episodic [...] Range Facility Office Visiton 05-19-2023 Follow-up visit [id number] Alex Almonte 1945 M Date Provider Department Center 05/19/2023 CAITY PALACIOS CARD [facility] Family History Problem Relation Age of Onset Cancer Mother Aneurysm Father Cancer Father Parkinsonism Father Family Status - Relation Status Age at Mother Father Level of Service:83989 [place] OFFICE/OUTPATIENT ESTABLISHED LOW MDM 20 MIN Reason for Visit and Comments: Follow-up [081914] - 6 month follow up Normal [facility] HbA1c (Bld) [Mass fraction]o n 03-18-2023 Interpretation and review of laboratory results Normal [facility] POCT glycosylated hemoglobin (Hb A1C) docked deviceon 03-18-2023 HbA1c (Bld) [Mass fraction] 7.8 % [facility] CNPRosalie 12-25-2022 CNPN Telephone (TXCTGL) ALEX ALMONTE ([id number]) 1945 M Date Time Provider Department 12/25/22 KIDNEY TXP COORDINATORS [facility] During your visit today, we recorded the following information about you: Duane Ryan 12/25/2022 10:41 AM Signed Labs 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 Take one (1) tablet M-W-F insulin lispro 100 unit/mL injection Inject 6 [...] by mouth daily with lunch. Magic Cup [place] with lunch aspirin, enteric coated (ASPIRIN, ENTERIC [...] Pts RN at [facility] reports pts sister picks up [...] Apply 0. (more content not included)... Normal [facility] Office Visiton 09-09-2022 Follow-up visit [id number] Alex Almonte Kate 1945 M Date Provider Department Center 09/09/2022 1596-SARTHAK PARNELL CARD [facility] Family History Problem Relation Age of Onset Cancer Mother Aneurysm Father Cancer Father Parkinsonism Father Family Status - Relation Status Age at Mother Father Level of Service:82881 [place] OFFICE/OUTPATIENT ESTABLISHED MOD MDM 30-39 MIN Normal [facility] Glucose Poct Glucometerson 0 07-20-2022 Commemt1 Glu2: Cleaned Meter Normal [facility] Comment on above: Result Comment: PERF ORMED BY: [facility] [address] [place] [address] PATHOLOGIST PALLIATIVE CARE PHYSICIAN JOSE F ELLIOTT M.D. Performed By: #### G MADY #### Point of Care testing , Glucose [Mass/Vol] 176 mg/dL Normal [facility] Comment on above: Result Comment: [facility] Glucose Reference Range is dependent on time and content of last meal. Glucose of more than 200 mg/dL in a nonstressed, ambulatory subject supports the diagnosis of Diabetes Mellitus. Performed By: #### G LULS #### Point of Care testing , FK506 (TACROLIMUS) WHOLE BLO ODon 07-12-2022 Tacrolimus (FK506), Blood 10.9 ng/mL Normal 2.0-20.0 [facility] Comment on above: Result Comment: Trou gh (immediately following transplant) 15.0 . Trough (steady state, 2 weeks or more after transplant): 3.0 - 8.0 . Performed by LC-MS/MS technology. Performed By: #### F K506T ####[facility] Hynsiymi[address] [place], [place] [address]Dr. Farhat Leal CBC AUTO DIFFon 07-10-2022 BASO # 0.0 103/ul Normal 0.0-0.1 [facility] Comment on above: Performed By: #### C BC ####[facility] Ueldeekm[address] [place], [place] [address]Dr. Farhat Leal Basophils/100 WBC (Bld) 0.5 % Normal 0.2-2.0 [facility] Comment on above: Performed By: #### C BC ####[facility] Y[address] [place], [place] [address]Dr. Farhat Leal EO # 0.3 103/ul Normal 0.0-0.7 [facility] Comment on above: Performed By: #### C BC ####[facility] Dzainmliqj[address] [place], [place] [address]Dr. Farhat Leal Eosinophils/100 WBC (Bld) 4.9 % Normal 0.9-7.0 [facility] Comment on above: Performed By: #### C BC ####[facility] J[address]ts[address] [place], [place] [address]Dr. Farhat Leal Erythrocyte distribution width (RBC) [Ratio] 13.8 % Normal 11.0-15.0 [facility] Comment on above: Performed By: #### C BC ####[facility] [address] [place] [address]Dr. Farhat Leal Hematocrit (Bld) [Volume fraction] 36.6 % Critically low 42.0-54.0 [facility] Comment on above: Performed By: #### C BC ####[facility] Ehovazovxv[address] [place], [place] [address]Dr. Madelynlorri Leal Hemoglobin (Bld) [Mass/Vol] 12.2 g/dL Critically low 14.0-18.0 [facility] Comment on above: Performed By: #### C BC ####[facility] Uivpdcsav[address] [place], [place] [address]Dr. Farhat Leal IG # 0.01 10e3/ul Normal 0.00-0.03 [facility] Comment on above: Performed By: #### C BC ####[facility] Diifeprmdp[address] [place], [place] [address]Dr. Madelynlorri Leal IG % 0.2 % Normal 0.0-0.5 [facility] Comment on above: Performed By: #### C BC ####[facility] Awlyvllazz[address] [place], [place] [address]DrSkylar Joshilorri Leal LYMPH # 2.2 103/ul Normal 1.2-3.8 [facility] Comment on above: Performed By: #### C BC ####[facility] Ncnocivgqe[address] [place], [place] [address]DrSkylar Madelynlorri Leal Lymphocytes/100 WBC (Bld) 33.9 % Normal 20.5-60.0 [facility] Comment on above: Performed By: #### C BC ####[facility] Vpvoaeywaf[address] [place], [place] [address]DrSkylar Leal MANUAL DIFF REQ NO Normal [facility] Comment on above: Performed By: #### C BC ####[facility] Azvgwthwiy140[address] [place], [place] [address]Dr. Farhat Leal MCH (RBC) [Entitic mass] 31.0 pg Normal 25.9-34.0 [facility] Comment on above: Performed By: #### C BC ####[facility] [address] [place] [address]Dr. Farhat Leal MCHC (RBC) [Mass/Vol] 33.3 g/dL Normal 29.9-35.2 [facility] Comment on above: Performed By: #### C BC ####[facility] Gajhtdanmt[address] [place], [place] [address]DrSkylar Leal MCV (RBC) [Entitic vol] 93.1 fL Normal 80.0-94.0 [facility] Comment on above: Performed By: #### C BC ####[facility] Ukfuntgvnf[address] [place], [place] [address]DrSkylar Leal MONO # 0.7 103/ul Normal 0.3-0.8 [facility] Comment on above: Performed By: #### C BC ####[facility] Zadgmfoeuw[address] [place], [place] [address]Dr. Farhat Leal Monocytes/100 WBC (Bld) 10.8 % Normal 1.7-12.0 [facility] Comment on above: Performed By: #### C BC ####[facility] Mvluzwpkbm[address] [place], [place] [address]DrSkylar Leal NEUT # 3.2 103/ul Normal 1.4-6.5 [facility] Comment on above: Performed By: #### C BC ####[facility] Exspudyvpd[address] [place], [place] [address]DrSkylar Leal Neutrophils/100 WBC (Bld) 49.7 % Normal 43.0-75.0 [facility] Comment on above: Performed By: #### C BC ####[facility] Lnlcfvdqhd[address] [place], [place] [address]DrSkylar Leal Platelet mean volume (Bld) [Entitic vol] 10.9 fL Normal 9.5-13.5 [facility] Comment on above: Performed By: #### C BC ####[facility] Dheoxwrlhu[address] [place], [place] [address]Dr. Farhat Leal PLT 195 103/ul Normal 150-450 [facility] Comment on above: Performed By: #### C BC ####[facility] [address] [place] [address]Dr. Farhat Leal RBC 3.93 106/ul Critically low 4.70-6.10 [facility] Comment on above: Performed By: #### C BC ####[facility] [address] [place] [address]Dr. Farhat Leal WBC 6.4 103/ul Normal 4.0-11.0 [facility] Comment on above: Performed By: #### C BC ####[facility] [address] [place] [address]Dr. Farhat Leal MAGNESIUMon 07-10-2022 Magnesium [Mass/Vol] 1.9 mg/dL Normal 1.8-2.4 [facility] Comment on above: Performed By: #### HENRI Winters ####[facility] Ilgfkydyuq[address] [place], [place] [address]Dr. Farhat Leal PHOSPHORUSon 07-10-2022 Phosphate [Mass/Vol] 4.7 mg/dL Normal 2.6-4.7 [facility] Comment on above: Performed By: #### HENRI Winters ####[facility] Dpzhupqkea[address] [place], [place] [address]Dr. Farhat Leal PROF 14(COMP METB)on 023 Albumin [Mass/Vol] 2.7 g/dL Critically low 3.4-5.0 [facility] Comment on above: Performed By: #### C MP ####[facility] [address] [place] [address]Dr. Farhat Leal Albumin/Globulin [Mass ratio] 0.8 {ratio} Normal [facility] Comment on above: Performed By: #### C MP ####[facility] [address] [place] [address]Dr. Farhat Leal ALP [Catalytic activity/Vol] 59 U/L Normal 46-116 [facility] Comment on above: Performed By: #### C MP ####[facility] [address] [place] [phone]. Farhat Leal ALT [Catalytic activity/Vol] 16 U/L Normal 16-63 [facility] Comment on above: Performed By: #### C MP ####[facility] Yjoyphragh[address] [place] [id number]. Farhat Leal Anion gap [Moles/Vol] 12.3 mmol/L Normal [facility] Comment on above: Performed By: #### C MP ####[facility] Yz[address]vifxg[address] [place] [phone]. Farhat Leal AST [Catalytic activity/Vol] 17 U/L Normal 15-37 [facility] Comment on above: Performed By: #### C MP ####[facility] [address]lzw[address] [place] [address]Dr. Farhat Leal Bilirubin [Mass/Vol] 0.5 mg/dL Normal 0.2-1.0 [facility] Comment on above: Performed By: #### C MP ####[facility] [address] [place] [phone]. Farhat Leal Calcium [Mass/Vol] 8.5 mg/dL Normal 8.5-10.1 [facility] Comment on above: Performed By: #### C MP ####[facility] [address]mf[address] [place] [phone]. Farhat Leal Chloride [Moles/Vol] 104 mmol/L Normal 98-107 [facility] Comment on above: Performed By: #### C MP ####[facility] Vsviqubtin[address] [place] [id number]. Farhat Leal CO2 [Moles/Vol] 27.6 mmol/L Normal 21.0-32.0 [facility] Comment on above: Performed By: #### C MP ####[facility] [address] [place] [phone]. Farhat Leal Creatinine [Mass/Vol] 1.79 mg/dL Critically high 0.70-1.30 [facility] Comment on above: Performed By: #### C MP ####[facility] [address]xs[address]fpx[address] [place] [address]Dr. Farhat Leal EGFR-AF GEORGIAN 45 mL/min/1.73m2 Critically low >=60 [facility] Comment on above: Performed By: #### C MP ####[facility] [address]dantf[address] [place] [phone]. Farhat Leal EGFR-NON AF GEORGIAN 37 mL/min/1.73m2 Critically low >=60 [facility] Comment on above: Performed By: #### C MP ####[facility] [address] [place] [phone]. Farhat Leal Globulin (S) [Mass/Vol] 3.2 g/dL Normal [facility] Comment on above: Performed By: #### C MP ####[facility] Ol[address]wgknzi[address] [place] [phone]. Farhat Leal Glucose [Mass/Vol] 203 mg/dL Critically high 74-[address] [facility] Comment on above: Performed By: #### C MP ####[facility] B[address]nutbtxe[address] [place] [phone]. Farhat Leal Potassium [Moles/Vol] 3.9 mmol/L Normal 3.5-5.1 [facility] Comment on above: Performed By: #### C MP ####[facility] Wrkivkzzji[address] [place] [phone]. Farhat Leal Protein [Mass/Vol] 5.9 g/dL Critically low 6.4-8.2 [facility] Comment on above: Performed By: #### C MP ####[facility] [address]ff[address]zl[address] [place] [phone]. Farhat Leal Sodium [Moles/Vol] 140 mmol/L Normal 136-145 [facility] Comment on above: Performed By: #### C MP ####[facility] Ktqs[address]jwep[address] [place] [phone]. Farhat Leal Urea nitrogen [Mass/Vol] 61.0 mg/dL Critically high 7.0-18.0 [facility] Comment on above: Performed By: #### C MP ####[facility] F[address]kwkc[address] [place] [address]DrSkylar Leal Urea nitrogen/Creatinine [Mass ratio] 34.1 mg/mg Normal [facility] Comment on above: Performed By: #### C MP ####[facility] Xfuzidiabo[address] [place], [place] [address]DrSkylar Leal PROTIMEon 07-10-2022 INR Coag (PPP) [Relative time] 2.95 {INR} Normal [facility] Comment on above: Performed By: #### P T ####[facility] Pengjvqymr[address] [place], [place] [address]DrSkylar Leal INR GUIDELINES SEE BELOW Normal [facility] Comment on above: Result Comment: MALINA RED INR: 2.0 - 3.0 CONDITIONS NOT LISTED BELOW 2.5 - 3.5 FOR PROSTHETIC HEART VALVE REPLACEMENT 2.5 - 3.5 RECURRENT THROMBOSIS Performed By: #### P T ####[facility] Hqeuebiyiw[address] [place], [place] [address]DrSkylar Leal PT Coag (PPP) [Time] 29.4 s Critically high 9.0-11.6 [facility] Comment on above: Performed By: #### P T ####[facility] Dpocoamiyq[address] [place], [place] [address]DrSkylar Leal FK506 (TACROLIMUS) WHOLE BLO ODon 07-07-2022 Tacrolimus (FK506), Blood 8.3 ng/mL Normal 2.0-20.0 [facility] Comment on above: Result Comment: Trou gh (immediately following transplant) 15.0 . Trough (steady state, 2 weeks or more after transplant): 3.0 - 8.0 . Performed by LC-MS/MS technology. Performed By: #### F K506T ####[facility] Hwxweoarke[address] [place], [place] [address]DrSkylar Leal CBC AUTO DIFFon 07-03-2022 BASO # 0.0 103/ul Normal 0.0-0.1 [facility] Comment on above: Performed By: #### C BC ####[facility] Daeoygcpxa[address] [place], [place] [address]DrSkylar Leal Basophils/100 WBC (Bld) 0.6 % Normal 0.2-2.0 [facility] Comment on above: Performed By: #### C BC ####[facility] [address]wfe[address] [place] [id number]. Farhat Leal EO # 0.3 103/ul Normal 0.0-0.7 [facility] Comment on above: Performed By: #### C BC ####[facility] [address]dsqzsmjn[address] [place], [place] [address]Dr. Farhat Leal Eosinophils/100 WBC (Bld) 4.1 % Normal 0.9-7.0 [facility] Comment on above: Performed By: #### C BC ####[facility] Rwozwzqtgr[address] [place], [place] [address]Dr. Farhat Leal Erythrocyte distribution width (RBC) [Ratio] 14.0 % Normal 11.0-15.0 [facility] Comment on above: Performed By: #### C BC ####[facility] Zmevztvala[address] [place], [place] [address]Dr. Farhat Leal Hematocrit (Bld) [Volume fraction] 35.9 % Critically low 42.0-54.0 [facility] Comment on above: Performed By: #### C BC ####[facility] Fweuyvcypt[address] [place], [place] [address]Dr. Farhat Leal Hemoglobin (Bld) [Mass/Vol] 12.0 g/dL Critically low 14.0-18.0 [facility] Comment on above: Performed By: #### C BC ####[facility] R[address] [place], [place] [address]Dr. Farhat Leal IG # 0.04 10e3/ul Critically high 0.00-0.03 [facility] Comment on above: Performed By: #### C BC ####[facility] X[address]xpupxab[address] [place], [place] [address]Dr. Farhat Leal IG % 0.6 % Critically high 0.0-0.5 [facility] Comment on above: Performed By: #### C BC ####[facility] [address] [place] [address]Jk. Farhat Elvis LYMPH # 1.5 103/ul Normal 1.2-3.8 [facility] Comment on above: Performed By: #### C BC ####[facility] Y[address]voa[address] [place] [address]Dr. Madelynlorri Leal Lymphocytes/100 WBC (Bld) 21.5 % Normal 20.5-60.0 [facility] Comment on above: Performed By: #### C BC ####[facility] [address]wkxb[address] [place] [address]Dr. Madelynlorri Leal MANUAL DIFF REQ NO Normal [facility] Comment on above: Performed By: #### C BC ####[facility] Gz[address]vpadmy[address] [place] [address]Dr. Farhat Elvis MCH (RBC) [Entitic mass] 30.8 pg Normal 25.9-34.0 [facility] Comment on above: Performed By: #### C BC ####[facility] [address]zmeeqzc[address] [place], [place] [address]Dr. Farhat Elvis MCHC (RBC) [Mass/Vol] 33.4 g/dL Normal 29.9-35.2 [facility] Comment on above: Performed By: #### C BC ####[facility] Enxhmglqbs[address] [place], [place] [address]Dr. Farhat Leal MCV (RBC) [Entitic vol] 92.1 fL Normal 80.0-94.0 [facility] Comment on above: Performed By: #### C BC ####[facility] E[address]zawjnhb[address] [place], [place] [address]Dr. Farhat Leal MONO # 0.6 103/ul Normal 0.3-0.8 [facility] Comment on above: Performed By: #### C BC ####[facility] Luf[address]isaga[address] [place], [place] [address]Dr. Madelynlorri Leal Monocytes/100 WBC (Bld) 8.7 % Normal 1.7-12.0 [facility] Comment on above: Performed By: #### C BC ####[facility] Us[address]jqpnam[address] [place], [place] [address]Dr. Farhat Leal NEUT # 4.4 103/ul Normal 1.4-6.5 [facility] Comment on above: Performed By: #### C BC ####[facility] Nqmemckgvs04[address] [place] [address]Dr. Farhat Leal Neutrophils/100 WBC (Bld) 64.5 % Normal 43.0-75.0 [facility] Comment on above: Performed By: #### C BC ####[facility] Clrtcyviao6593 [place] [address]Dr. Farhat Leal Platelet mean volume (Bld) [Entitic vol] 10.1 fL Normal 9.5-13.5 [facility] Comment on above: Performed By: #### C BC ####[facility] Omylicalkw4252 [place] [address]Dr. Farhat Elvis PLT 177 103/ul Normal 150-450 [facility] Comment on above: Performed By: #### C BC ####[facility] Yjwtbsgikx[address] [place], [place] [address]Dr. Farhat Elvis RBC 3.90 106/ul Critically low 4.70-6.10 The [facility] Comment on above: Performed By: #### C BC ####[facility] Wtctkjubon24[address] [place], [place] [address]Dr. Farhat Leal WBC 6.8 103/ul Normal 4.0-11.0 [facility] Comment on above: Performed By: #### C BC ####[facility] Htmiujhmmi6849 [place] [address]DrSkylar Leal PROF 14(COMP METB)on 023 Albumin [Mass/Vol] 2.8 g/dL Critically low 3.4-5.0 Th [facility] Comment on above: Performed By: #### C MP ####[facility] Spvxwrjjds310[address] [place], [place] [address]Dr. Madelynlorri Elvis Albumin/Globulin [Mass ratio] 0.8 {ratio} Normal [facility] Comment on above: Performed By: #### C MP ####[facility] Bhmarjmtzl8[address] [place] [address]Dr. Farhat Leal ALP [Catalytic activity/Vol] 68 U/L Normal 46-116 [facility] Comment on above: Performed By: #### C MP ####[facility] Cxbrdvpwkn3450[address] [place], [place] [address]Dr. Farhat Leal ALT [Catalytic activity/Vol] 20 U/L Normal 16-63 [facility] Comment on above: Performed By: #### C MP ####[facility] Ipbhpliqrr520[address] [place], [place] [address]Dr. Farhat Elvis Anion gap [Moles/Vol] 11.1 mmol/L Normal Th e [facility] Comment on above: Performed By: #### C MP ####[facility] Cnckkosxim59[address] [place], [place] [address]Dr. Farhat Elvis AST [Catalytic activity/Vol] 22 U/L Normal 15-37 [facility] Comment on above: Performed By: #### C MP ####[facility] Mezzawfjdo0229[address] [place], [place] [address]Dr. Farhat Elvis Bilirubin [Mass/Vol] 0.4 mg/dL Normal 0.2-1.0 [facility] Comment on above: Performed By: #### C MP ####[facility] Udxicidewy360[address] [place], [place] [address]Dr. Farhat Elvis Calcium [Mass/Vol] 8.5 mg/dL Normal 8.5-10.1 [facility] Comment on above: Performed By: #### C MP ####[facility] Fexvaszjqv938743 [address] [place], [place] [address]Dr. Madelynlorri Leal Chloride [Moles/Vol] 106 mmol/L Normal 98-107 [facility] Comment on above: Performed By: #### C MP ####[facility] Ripnljbtsf5355[address] [place], [place] [address]Dr. Farhat Leal CO2 [Moles/Vol] 29.1 mmol/L Normal 21.0-32.0 [facility] Comment on above: Performed By: #### C MP ####[facility] Mcsyddktrl838343 [address] [place], [place] [address]Dr. Farhat Leal Creatinine [Mass/Vol] 1.70 mg/dL Critically high 0.70-1.30 [facility] Comment on above: Performed By: #### C MP ####[facility] Llhjarijnp1449 [place] [address]Dr. Farhat Leal EGFR-AF GEORGIAN 48 mL/min/1.73m2 Critically low >=60 [facility] Comment on above: Performed By: #### C MP ####[facility] Kqzsrdtskv70[address] [place] [phone]. Farhat Elvis EGFR-NON AF GEORGIAN 39 mL/min/1.73m2 Critically low >=60 [facility] Comment on above: Performed By: #### C MP ####[facility] Hucsoolirl849343 [address] [place], [place] [address]Dr. Farhat Elvis Globulin (S) [Mass/Vol] 3.6 g/dL Normal [facility] Comment on above: Performed By: #### C MP ####[facility] Bikvzynzcm1430[address] [place], [place] [address]Dr. Farhat Elvis Glucose [Mass/Vol] 312 mg/dL Critically high 74-[address] [facility] Comment on above: Performed By: #### C MP ####[facility] Eshvqyvdsp9607[address] [place], [place] [address]Dr. Farhat Leal Potassium [Moles/Vol] 4.2 mmol/L Normal 3.5-5.1 [facility] Comment on above: Performed By: #### C MP ####[facility] Euphmezzzk10[address] [place] [address]Dr. Farhat Leal Protein [Mass/Vol] 6.4 g/dL Normal 6.4-8.[address] [facility] Comment on above: Performed By: #### C MP ####[facility] Btbnaceulh1085[address] [place], [place] [address]Dr. Farhat Leal Sodium [Moles/Vol] 142 mmol/L Normal 136-145 [facility] Comment on above: Performed By: #### C MP ####[facility] Rohkjkxful8610[address] [place], [place] [address]Dr. Farhat Leal Urea nitrogen [Mass/Vol] 49.0 mg/dL Critically high 7.0-18.0 [facility] Comment on above: Performed By: #### C MP ####[facility] Nlzvzwqrcn677[address] [place], [place] [address]Dr. Farhat Leal Urea nitrogen/Creatinine [Mass ratio] 28.8 mg/mg Normal [facility] Comment on above: Performed By: #### C MP ####[facility] Bvhyahlzbi2887[address] [place], [place] [address]DrSkylar Leal PROTIMEon 07-03-2022 INR Coag (PPP) [Relative time] 2.23 {INR} Normal [facility] Comment on above: Performed By: #### P T ####[facility] Syvcfnfutj446[address] [place], [place] [address]DrSkylar Leal INR GUIDELINES SEE BELOW Normal [facility] Comment on above: Result Comment: MALINA RED INR: 2.0 - 3.0 CONDITIONS NOT LISTED BELOW 2.5 - 3.5 FOR PROSTHETIC HEART VALVE REPLACEMENT 2.5 - 3.5 RECURRENT THROMBOSIS Performed By: #### P T ####[facility] Eocuyfrede[address] [place], [place] [address]Skylar Leal PT Coag (PPP) [Time] 22.6 s Critically high 9.0-11.6 [facility] Comment on above: Performed By: #### P T ####[facility] Osobqcfflq[address] [place], [place] [address]Skylar Leal FK506 (TACROLIMUS) WHOLE BLO ODon 06-29-2022 Tacrolimus (FK506), Blood 12.2 ng/mL Normal 2.0-20.0 [facility] Comment on above: Result Comment: Trou gh (immediately following transplant) 15.0 . Trough (steady state, 2 weeks or more after transplant): 3.0 - 8.0 . Performed by LC-MS/MS technology. Performed By: #### F K506T ####[facility] Kabrekxdbb2560[address] [place], [place] [address]DrSkylar Leal CBC AUTO DIFFon 06-26-2022 BASO # 0.0 103/ul Normal 0.0-0.1 [facility] Comment on above: Performed By: #### C BC ####[facility] Eftxqcjcjh2157 [place] [address]Dr. Farhat Leal Basophils/100 WBC (Bld) 0.5 % Normal 0.2-2.0 [facility] Comment on above: Performed By: #### C BC ####[facility] Qvpgjdnsjd489243 [address] [place], [place] [address]Dr. Frahat Leal EO # 0.3 103/ul Normal 0.0-0.7 [facility] Comment on above: Performed By: #### C BC ####[facility] Nspglefxdo264343 [address] [place], [place] [address]Dr. Farhat Elvis Eosinophils/100 WBC (Bld) 4.3 % Normal 0.9-7.0 [facility] Comment on above: Performed By: #### C BC ####[facility] Dsgrkjdcwk9944[address] [place], [place] [address]Dr. Farhat Leal Erythrocyte distribution width (RBC) [Ratio] 14.1 % Normal 11.0-15.0 [facility] Comment on above: Performed By: #### C BC ####[facility] Raxhuvyhcc6[address] [place], [place] [address]Dr. Farhat Leal Hematocrit (Bld) [Volume fraction] 35.4 % Critically low 42.0-54.0 [facility] Comment on above: Performed By: #### C BC ####[facility] Ooftfvouhi278[address] [place], [place] [address]Dr. Farhat Leal Hemoglobin (Bld) [Mass/Vol] 11.8 g/dL Critically low 14.0-18.0 [facility] Comment on above: Performed By: #### C BC ####[facility] Sgjkqjonds759[address] [place], [place] [address]Dr. Farhat Elvis IG # 0.02 10e3/ul Normal 0.00-0.03 [facility] Comment on above: Performed By: #### C BC ####[facility] Anbcukzvcy5660[address] [place], [place] [address]Dr. Madelynlorri Leal IG % 0.3 % Normal 0.0-0.5 [facility] Comment on above: Performed By: #### C BC ####[facility] Ngzmghytrh9566 [place] [address]Dr. Farhat Elvis LYMPH # 2.4 103/ul Normal 1.2-3.8 [facility] Comment on above: Performed By: #### C BC ####[facility] Dtwqnyayii6790 [place] [address]Dr. Madelynlorri Leal Lymphocytes/100 WBC (Bld) 40.4 % Normal 20.5-60.0 [facility] Comment on above: Performed By: #### C BC ####[facility] Uuqabhlfdv9090 [place] [address]Dr. Farhat Leal MANUAL DIFF REQ NO Normal [facility] Comment on above: Performed By: #### C BC ####[facility] Kfseepbxqh6312[address] [place], [place] [address]Dr. Farhat Elivs MCH (RBC) [Entitic mass] 31.0 pg Normal 25.9-34.0 [facility] Comment on above: Performed By: #### C BC ####[facility] Ufdgcjqzml3764[address] [place], [place] [address]Dr. Farhat Elvis MCHC (RBC) [Mass/Vol] 33.3 g/dL Normal 29.9-35.2 [facility] Comment on above: Performed By: #### C BC ####[facility] Dgapoihwzv300[address] [place], [place] [address]Dr. Farhat Leal MCV (RBC) [Entitic vol] 92.9 fL Normal 80.0-94.0 [facility] Comment on above: Performed By: #### C BC ####[facility] Irafhbfhho225[address] [place], [place] [address]Dr. Farhat Leal MONO # 0.7 103/ul Normal 0.3-0.8 [facility] Comment on above: Performed By: #### C BC ####[facility] Iuwjncwaqk14[address] [place], [place] [address]Dr. Farhat Leal Monocytes/100 WBC (Bld) 11.1 % Normal 1.7-12.0 [facility] Comment on above: Performed By: #### C BC ####[facility] Luyiemhwcg7613 [place] [address]Dr. Madelynlorri Leal NEUT # 2.6 103/ul Normal 1.4-6.5 [facility] Comment on above: Performed By: #### C BC ####[facility] Dulksbwpzp7930 [place] [address]Dr. Farhat Leal Neutrophils/100 WBC (Bld) 43.4 % Normal 43.0-75.0 [facility] Comment on above: Performed By: #### C BC ####[facility] Pnhxavciwm5656 [place] [address]Dr. Farhat Leal Platelet mean volume (Bld) [Entitic vol] 10.4 fL Normal 9.5-13.5 [facility] Comment on above: Performed By: #### C BC ####[facility] Gqwvdsmxgg2001 [place] [address]Dr. Farhat Leal PLT 211 103/ul Normal 150-450 [facility] Comment on above: Performed By: #### C BC ####[facility] Mwasifgzia995[address] [place], [place] [address]Dr. Farhat Leal RBC 3.81 106/ul Critically low 4.70-6.10 [facility] Comment on above: Performed By: #### C BC ####[facility] Qjujlguank7832 [place] [address]Dr. Farhat Leal WBC 6.0 103/ul Normal 4.0-11.0 [facility] Comment on above: Performed By: #### C BC ####[facility] Zvvjnijxws5192 [place] [id number] Leal PROF 14(COMP METB)on 023 Albumin [Mass/Vol] 2.6 g/dL Critically low 3.4-5.0 [facility] Comment on above: Performed By: #### C MP ####[facility] Vktllwtvld9011 [place] [address]DrSkylar Leal Albumin/Globulin [Mass ratio] 0.8 {ratio} Normal [facility] Comment on above: Performed By: #### C MP ####[facility] Alkzvhukdj1069 [place] [address]Dr. Farhat Leal ALP [Catalytic activity/Vol] 64 U/L Normal 46-116 [facility] Comment on above: Performed By: #### C MP ####[facility] Udpjmmdbqw7886 [place] [address]Dr. Farhat Elvis ALT [Catalytic activity/Vol] 18 U/L Normal 16-63 [facility] Comment on above: Performed By: #### C MP ####[facility] Xvrssmniuv7688[address] [place], [place] [address]Dr. Farhat Leal Anion gap [Moles/Vol] 10.2 mmol/L Normal [facility] Comment on above: Performed By: #### C MP ####[facility] Eeiioueabb9229[address] [place], [place] [address]Dr. Farhat Elvis AST [Catalytic activity/Vol] 16 U/L Normal 15-37 [facility] Comment on above: Performed By: #### C MP ####[facility] Foxrhtodsd414[address] [place], [place] [address]Dr. Madelynlorri Elvis Bilirubin [Mass/Vol] 0.6 mg/dL Normal 0.2-1.0 [facility] Comment on above: Performed By: #### C MP ####[facility] Wcgdoaspou839[address] [place], [place] [address]Dr. Farhat Leal Calcium [Mass/Vol] 8.5 mg/dL Normal 8.5-10.1 [facility] Comment on above: Performed By: #### C MP ####[facility] Tltgygbznh5360[address] [place], [place] [address]Dr. Farhat Leal Chloride [Moles/Vol] 106 mmol/L Normal 98-107 [facility] Comment on above: Performed By: #### C MP ####[facility] Rkdgwmythp0196 [place] [address]Dr. Farhat Leal CO2 [Moles/Vol] 29.8 mmol/L Normal 21.0-32.0 [facility] Comment on above: Performed By: #### C MP ####[facility] Bitimnwvnv3319 [place] [phone]. Farhat Leal Creatinine [Mass/Vol] 1.60 mg/dL Critically high 0.70-1.30 [facility] Comment on above: Performed By: #### C MP ####[facility] Ptocdytbcr0675 [place] [phone]. Farhat Leal EGFR-AF GEORGIAN 51 mL/min/1.73m2 Critically low >=60 [facility] Comment on above: Performed By: #### C MP ####[facility] Eukumjlmvr3219 [place] [phone]. Farhat Elvis EGFR-NON AF GEORGIAN 42 mL/min/1.73m2 Critically low >=60 [facility] Comment on above: Performed By: #### C MP ####[facility] Sbqkjzqjxc7364 [place] [phone]. Farhat Elvis Globulin (S) [Mass/Vol] 3.4 g/dL Normal [facility] Comment on above: Performed By: #### C MP ####[facility] Hvmwgamlaa6938 [place] [phone]. Farhat Leal Glucose [Mass/Vol] 178 mg/dL Critically high 74-106 [facility] Comment on above: Performed By: #### C MP ####[facility] Nhunvvnvnx6367 [place] [phone]. Farhat Elvis Potassium [Moles/Vol] 4.0 mmol/L Normal 3.5-5.1 [facility] Comment on above: Performed By: #### C MP ####[facility] Efxijfcobt5810 [place] [phone]. Farhat Elvis Protein [Mass/Vol] 6.0 g/dL Critically low 6.4-8.2 [facility] Comment on above: Performed By: #### C MP ####[facility] Vxnuqxeloq2237 [place] [phone]. Farhat Elvis Sodium [Moles/Vol] 142 mmol/L Normal 136-145 [facility] Comment on above: Performed By: #### C MP ####[facility] Mgofqcawez1753 [place] [address]Dr. Farhat Leal Urea nitrogen [Mass/Vol] 49.0 mg/dL Critically high 7.0-18.0 [facility] Comment on above: Performed By: #### C MP ####[facility] Scpnlraott1813 [place] [address]Dr. Farhat Leal Urea nitrogen/Creatinine [Mass ratio] 30.6 mg/mg Normal [facility] Comment on above: Performed By: #### C MP ####[facility] Zuiegxzsik34[address] [place], [place] [address]Dr. Farhat Leal PROTIMEon 06-26-2022 INR Coag (PPP) [Relative time] 1.77 {INR} Normal [facility] Comment on above: Performed By: #### P T ####[facility] Ildqruxxtw1924[address] [place], [place] [address]Dr. Farhat Leal INR GUIDELINES SEE BELOW Normal [facility] Comment on above: Result Comment: MALINA RED INR: 2.0 - 3.0 CONDITIONS NOT LISTED BELOW 2.5 - 3.5 FOR PROSTHETIC HEART VALVE REPLACEMENT 2.5 - 3.5 RECURRENT THROMBOSIS Performed By: #### P T ####[facility] Ccjigwxpyi077[address] [place], [place] [address]Dr. Farhat Leal PT Coag (PPP) [Time] 18.2 s Critically high 9.0-11.6 [facility] Comment on above: Performed By: #### P T ####[facility] Zxnkksuytf2149[address] [place], [place] [address]Dr. Farhat Leal FK506 (TACROLIMUS) WHOLE BLO ODon 06-22-2022 Tacrolimus (FK506), Blood 24.5 ng/mL Invalid Interpretation Code 2.0-20.0 [facility] Comment on above: Result Comment: Trou gh (immediately following transplant) 15.0 . Trough (steady state, 2 weeks or more after transplant): 3.0 - 8.0 . Performed by LC-MS/MS technology.Patient drug level exceeds published reference range. Evaluateclinically for signs of potential toxicity. Performed By: #### F K506T ####[facility] Jneieponui2422 [place] [address]Dr. Farhat Elvis CBC AUTO DIFFon 06-19-2022 BASO # 0.1 103/ul Normal 0.0-0.1 [facility] Comment on above: Performed By: #### C BC ####[facility] Awkolssgds898[address] [place], [place] [address]Dr. Farhat Leal Basophils/100 WBC (Bld) 0.7 % Normal 0.2-2.0 [facility] Comment on above: Performed By: #### C BC ####[facility] Gnttmfxntj079[address] [place], [place] [address]Dr. Farhat Leal EO # 0.4 103/ul Normal 0.0-0.7 [facility] Comment on above: Performed By: #### C BC ####[facility] Pwcqqbzwli4301[address] [place], [place] [address]Dr. Farhat Leal Eosinophils/100 WBC (Bld) 5.7 % Normal 0.9-7.0 [facility] Comment on above: Performed By: #### C BC ####[facility] Fgpppxxtjs859[address] [place], [place] [address]Dr. Farhat Leal Erythrocyte distribution width (RBC) [Ratio] 14.5 % Normal 11.0-15.0 [facility] Comment on above: Performed By: #### C BC ####[facility] Ptkxikuydw912[address] [place], [place] [address]Dr. Farhat Leal Hematocrit (Bld) [Volume fraction] 34.1 % Critically low 42.0-54.0 [facility] Comment on above: Performed By: #### C BC ####[facility] Leraufvorm4687[address] [place], [place] [address]Dr. Farhat Leal Hemoglobin (Bld) [Mass/Vol] 11.3 g/dL Critically low 14.0-18.0 [facility] Comment on above: Performed By: #### C BC ####[facility] Mgswezftrw018[address] [place], [place] [address]Dr. Farhat Leal IG # 0.02 10e3/ul Normal 0.00-0.03 [facility] Comment on above: Performed By: #### C BC ####[facility] Qcqymymknn7970 [place] [phone] Farhat Elvis IG % 0.3 % Normal 0.0-0.5 [facility] Comment on above: Performed By: #### C BC ####[facility] Knogwawoib3980 [place] [address]DrSkylar Leal LYMPH # 3.1 103/ul Normal 1.2-3.8 [facility] Comment on above: Performed By: #### C BC ####[facility] Auynggbfqa0586 [place] [address]DrSkylar Leal Lymphocytes/100 WBC (Bld) 40.6 % Normal 20.5-60.0 [facility] Comment on above: Performed By: #### C BC ####[facility] Diacxfkgac1112[address] [place], [place] [address]DrSkylar Leal MANUAL DIFF REQ NO Normal [facility] Comment on above: Performed By: #### C BC ####[facility] Ccrahbdiiy1034 [place] [phone] Farhat Elvis MCH (RBC) [Entitic mass] 30.6 pg Normal 25.9-34.0 [facility] Comment on above: Performed By: #### C BC ####[facility] Qqklqcmyig8616[address] [place], [place] [address]DrSkylar Farhat Elvis MCHC (RBC) [Mass/Vol] 33.1 g/dL Normal 29.9-35.2 [facility] Comment on above: Performed By: #### C BC ####[facility] Ooezyrddrp6400 [place] [phone] Leal MCV (RBC) [Entitic vol] 92.4 fL Normal 80.0-94.0 [facility] Comment on above: Performed By: #### C BC ####[facility] Oboktmlgrc9[address] [place], [place] [address]DrSkylar Leal MONO # 0.8 103/ul Normal 0.3-0.8 [facility] Comment on above: Performed By: #### C BC ####[facility] Qckplqxvls8674 [place] [address]Dr. Farhat Leal Monocytes/100 WBC (Bld) 10.6 % Normal 1.7-12.0 [facility] Comment on above: Performed By: #### C BC ####[facility] Fwelonionj6714 [place] [address]Dr. Farhat Leal NEUT # 3.2 103/ul Normal 1.4-6.5 [facility] Comment on above: Performed By: #### C BC ####[facility] Thkdnyvkjm2120 [place] [address]Dr. Farhat Leal Neutrophils/100 WBC (Bld) 42.1 % Critically low 43.0-75.0 [facility] Comment on above: Performed By: #### C BC ####[facility] Fjdivvslsr6481 [place] [address]Dr. Farhat Leal Platelet mean volume (Bld) [Entitic vol] 10.6 fL Normal 9.5-13.5 [facility] Comment on above: Performed By: #### C BC ####[facility] Sxfpudhqnt97[address] [place], [place] [address]Dr. Farhat Leal PLT 187 103/ul Normal 150-450 [facility] Comment on above: Performed By: #### C BC ####[facility] Fbbreapkxu3062 [place] [address]Dr. Farhat Leal RBC 3.69 106/ul Critically low 4.70-6.10 [facility] Comment on above: Performed By: #### C BC ####[facility] Iimecmfxju[address] [place] [id number]. Farhat Leal WBC 7.7 103/ul Normal 4.0-11.0 [facility] Comment on above: Performed By: #### C BC ####[facility] Qmpgjczzid1489 [place] [address]Dr. Farhat Leal PROF 14(COMP METB)on 023 Albumin [Mass/Vol] 2.5 g/dL Critically low 3.4-5.0 Th [facility] Comment on above: Performed By: #### C MP ####[facility] Qerxjwvwza7723 [place] [address]Dr. Farhat Leal Albumin/Globulin [Mass ratio] 0.8 {ratio} Normal [facility] Comment on above: Performed By: #### C MP ####[facility] Ukxtvvocvr2349 [place] [address]Dr. Farhat Leal ALP [Catalytic activity/Vol] 60 U/L Normal 46-116 [facility] Comment on above: Performed By: #### C MP ####[facility] Jdkyjgdjgg[address] [place], [place] [address]Dr. Farhat Leal ALT [Catalytic activity/Vol] 16 U/L Normal 16-63 [facility] Comment on above: Performed By: #### C MP ####[facility] Saorijucuu8[address] [place], [place] [address]Dr. Farhat Leal Anion gap [Moles/Vol] 9.1 mmol/L Normal [facility] Comment on above: Performed By: #### C MP ####[facility] Szpchcopmx93[address] [place], [place] [address]Dr. Farhat Leal AST [Catalytic activity/Vol] 31 U/L Normal 15-37 [facility] Comment on above: Performed By: #### C MP ####[facility] Cdwapgpfzw016[address] [place], [place] [address]Dr. Farhat Leal Bilirubin [Mass/Vol] 0.3 mg/dL Normal 0.2-1.0 [facility] Comment on above: Performed By: #### C MP ####[facility] Encyngdsbj20[address] [place], [place] [address]Dr. Farhat Leal Calcium [Mass/Vol] 8.2 mg/dL Critically low 8.5-10.1 Th [facility] Comment on above: Performed By: #### C MP ####[facility] Czcpyltglf[address] [place], [place] [address]Dr. Farhat Leal Chloride [Moles/Vol] 106 mmol/L Normal 98-107 [facility] Comment on above: Performed By: #### C MP ####[facility] Fdnamnrdso9362 [place] [id number]. Farhat Leal CO2 [Moles/Vol] 27.0 mmol/L Normal 21.0-32.0 [facility] Comment on above: Performed By: #### C MP ####[facility] Hznrtrdozy5239 [place] [id number]. Farhat Elvis Creatinine [Mass/Vol] 1.51 mg/dL Critically high 0.70-1.30 [facility] Comment on above: Performed By: #### C MP ####[facility] Gfayrupfow5335 [place] [id number]. Farhat Elvis EGFR-AF GEORGIAN 55 mL/min/1.73m2 Critically low >=60 [facility] Comment on above: Performed By: #### C MP ####[facility] Xvbdyhndwm5907 [place] [address]Dr. Madelynlorri Elvis EGFR-NON AF GEORGIAN 45 mL/min/1.73m2 Critically low >=60 [facility] Comment on above: Performed By: #### C MP ####[facility] Hbvynekyit5613 [place] [address]Dr. Farhat Elvis Globulin (S) [Mass/Vol] 3.2 g/dL Normal [facility] Comment on above: Performed By: #### C MP ####[facility] Qcktpyhetj9547 [place] [id number]. Farhat Leal Glucose [Mass/Vol] 165 mg/dL Critically high 74-[address] [facility] Comment on above: Performed By: #### C MP ####[facility] Uyhqdwldbp3175 [place] [id number]. Farhat Elvis Potassium [Moles/Vol] 4.1 mmol/L Normal 3.5-5.1 [facility] Comment on above: Performed By: #### C MP ####[facility] Nkbydurxuz9623 [place] [id number]. Madelynlorri Leal Protein [Mass/Vol] 5.7 g/dL Critically low 6.4-8.2 Th e [facility] Comment on above: Performed By: #### C MP ####[facility] Icuezzmhkt2337 [place] [address]Dr. Farhat Lael Sodium [Moles/Vol] 138 mmol/L Normal 136-145 [facility] Comment on above: Performed By: #### C MP ####[facility] Pasxntyfkd3338 [place] [address]Dr. Farhat Leal Urea nitrogen [Mass/Vol] 51.0 mg/dL Critically high 7.0-18.0 [facility] Comment on above: Performed By: #### C MP ####[facility] Frznpcpqqh5649 [place] [address]Dr. Farhat Leal Urea nitrogen/Creatinine [Mass ratio] 33.8 mg/mg Normal [facility] Comment on above: Performed By: #### C MP ####[facility] Smdunzsmld6484 [place] [address]Dr. Farhat Leal FK506 (TACROLIMUS) WHOLE BLO ODon 06-15-2022 Tacrolimus (FK506), Blood 16.4 ng/mL Normal 2.0-20.0 [facility] Comment on above: Result Comment: Trou gh (immediately following transplant) 15.0 . Trough (steady state, 2 weeks or more after transplant): 3.0 - 8.0 . Performed by LC-MS/MS technology. Performed By: #### F K506T ####[facility] Ejibprfecg1835 [place] [address]Dr. Farhat Leal PROTIMEon 06-15-2022 INR Coag (PPP) [Relative time] 1.64 {INR} Normal [facility] Comment on above: Performed By: #### P T ####[facility] Uzdhfstwkl046[address] [place], [place] [address]Dr. Farhat Leal INR GUIDELINES SEE BELOW Normal [facility] Comment on above: Result Comment: MALINA RED INR: 2.0 - 3.0 CONDITIONS NOT LISTED BELOW 2.5 - 3.5 FOR PROSTHETIC HEART VALVE REPLACEMENT 2.5 - 3.5 RECURRENT THROMBOSIS Performed By: #### P T ####[facility] Jdkrxdyyyx0601 [place] [address]Dr. Farhat Leal PT Coag (PPP) [Time] 16.9 s Critically high 9.0-11.6 [facility] Comment on above: Performed By: #### P T ####[facility] Whesoxqxna76[address] [place], [place] [address]Dr. Farhat Leal CBC AUTO DIFFon 06-12-2022 BASO # 0.0 103/ul Normal 0.0-0.1 [facility] Comment on above: Performed By: #### C BC ####[facility] Thumnidgfm224[address] [place], [place] [address]Dr. Farhat Leal Basophils/100 WBC (Bld) 0.4 % Normal 0.2-2.0 [facility] Comment on above: Performed By: #### C BC ####[facility] Qsjkmgvkbe1767[address] [place], [place] [address]Dr. Farhat Leal EO # 0.4 103/ul Normal 0.0-0.7 [facility] Comment on above: Performed By: #### C BC ####[facility] Xyrgrcnpss800[address] [place], [place] [address]Dr. Farhat Leal Eosinophils/100 WBC (Bld) 5.4 % Normal 0.9-7.0 [facility] Comment on above: Performed By: #### C BC ####[facility] Uzllioyhoq76[address] [place], [place] [address]Dr. Farhat Leal Erythrocyte distribution width (RBC) [Ratio] 14.7 % Normal 11.0-15.0 [facility] Comment on above: Performed By: #### C BC ####[facility] Rlurkmpruq6[address] [place], [place] [address]Dr. Farhat Leal Hematocrit (Bld) [Volume fraction] 34.8 % Critically low 42.0-54.0 [facility] Comment on above: Performed By: #### C BC ####[facility] Qtcrqjxvgt697[address] [place], [place] [address]Dr. Farhat Leal Hemoglobin (Bld) [Mass/Vol] 11.7 g/dL Critically low 14.0-18.0 [facility] Comment on above: Performed By: #### C BC ####[facility] Caongolcxq5038 [place] [id number]. Madelynlorri Elvis IG # 0.02 10e3/ul Normal 0.00-0.03 [facility] Comment on above: Performed By: #### C BC ####[facility] Laddnqbwoh8763 [place] [id number]. Farhat Leal IG % 0.3 % Normal 0.0-0.5 [facility] Comment on above: Performed By: #### C BC ####[facility] Lggxfdegcg1276 [place] [address]Dr. Farhat Leal LYMPH # 2.5 103/ul Normal 1.2-3.8 [facility] Comment on above: Performed By: #### C BC ####[facility] Jzzppdwbgy3270 [place] [address]Dr. Farhat Leal Lymphocytes/100 WBC (Bld) 36.8 % Normal 20.5-60.0 [facility] Comment on above: Performed By: #### C BC ####[facility] Htspkzrdcr6925 [place] [address]DrSkylar Leal MANUAL DIFF REQ NO Normal [facility] Comment on above: Performed By: #### C BC ####[facility] Xbtcdzdipw2037 [place] [id number]. Farhat Leal MCH (RBC) [Entitic mass] 30.9 pg Normal 25.9-34.0 [facility] Comment on above: Performed By: #### C BC ####[facility] Onyriudrhk3947 [place] [id number]. Farhat Leal MCHC (RBC) [Mass/Vol] 33.6 g/dL Normal 29.9-35.2 [facility] Comment on above: Performed By: #### C BC ####[facility] Aezbacpllz3863 [place] [phone]. Farhat Leal MCV (RBC) [Entitic vol] 91.8 fL Normal 80.0-94.0 [facility] Comment on above: Performed By: #### C BC ####[facility] Dxutqxdfcl1615 [place] [id number]. Farhat Leal MONO # 0.8 103/ul Normal 0.3-0.8 [facility] Comment on above: Performed By: #### C BC ####[facility] Ikbixuskyp0613 [place] [phone]. Farhat Leal Monocytes/100 WBC (Bld) 11.9 % Normal 1.7-12.0 [facility] Comment on above: Performed By: #### C BC ####[facility] Hdisqqovgl4816 [place] [phone]. Farhat Leal NEUT # 3.1 103/ul Normal 1.4-6.5 [facility] Comment on above: Performed By: #### C BC ####[facility] Encejtgcmg2792 [place] [address]Dr. Farhat Leal Neutrophils/100 WBC (Bld) 45.2 % Normal 43.0-75.0 [facility] Comment on above: Performed By: #### C BC ####[facility] Eqaxmteolh2373 [place] [phone]. Farhat Leal Platelet mean volume (Bld) [Entitic vol] 10.5 fL Normal 9.5-13.5 [facility] Comment on above: Performed By: #### C BC ####[facility] Avkyjafjxa0328 [place] [id number]. Farhat Leal PLT 175 103/ul Normal 150-450 [facility] Comment on above: Performed By: #### C BC ####[facility] Qjcdtctafk8035 [place] [id number]. Farhat Leal RBC 3.79 106/ul Critically low 4.70-6.10 [facility] Comment on above: Performed By: #### C BC ####[facility] Aaqydjgmqp0376 [place] [id number]. Farhat Leal WBC 6.8 103/ul Normal 4.0-11.0 [facility] Comment on above: Performed By: #### C BC ####[facility] Ptcpnlfllr4418 [place] [address]Dr. Farhat Leal MAGNESIUMon 06-12-2022 Magnesium [Mass/Vol] 1.6 mg/dL Critically low 1.8-2.4 [facility] Comment on above: Performed By: #### C MP, MG, PHOS ####[facility] Pznjlfcdwp5335 [place] [address]Dr. Farhat Leal PHOSPHORUSon 06-12-2022 Phosphate [Mass/Vol] 3.8 mg/dL Normal 2.6-4.7 [facility] Comment on above: Performed By: #### C MP, MG, PHOS ####[facility] Jmagpncmpx0297 [place] [address]Dr. Farhat Leal PROF 14(COMP METB)on 023 Albumin [Mass/Vol] 2.6 g/dL Critically low 3.4-5.0 [facility] Comment on above: Performed By: #### C MP, MG, PHOS ####[facility] Pqsxnrqtre9151 [place] [address]Dr. Farhat Leal Albumin/Globulin [Mass ratio] 0.8 {ratio} Normal [facility] Comment on above: Performed By: #### C MP, MG, PHOS ####[facility] Tysergezrs5083 [place] [address]Dr. Farhat Leal ALP [Catalytic activity/Vol] 64 U/L Normal 46-116 [facility] Comment on above: Performed By: #### C MP, MG, PHOS ####[facility] Tdgupbjqbd5697 [place] [address]Dr. Farhat Leal ALT [Catalytic activity/Vol] 18 U/L Normal 16-63 [facility] Comment on above: Performed By: #### C MP, MG, PHOS ####[facility] Beciontjjv0762 [place] [address]Dr. Farhat Leal Anion gap [Moles/Vol] 12.9 mmol/L Normal [facility] Comment on above: Performed By: #### C MP, MG, PHOS ####[facility] Ufbcftrule2740 [place] [address]Dr. Farhat Leal AST [Catalytic activity/Vol] 18 U/L Normal 15-37 [facility] Comment on above: Performed By: #### C MP, MG, PHOS ####[facility] Cmtfsbpxln7569 [place] [address]Dr. Farhat Leal Bilirubin [Mass/Vol] 0.4 mg/dL Normal 0.2-1.0 [facility] Comment on above: Performed By: #### C MP, MG, PHOS ####[facility] Jqruvflazh3600 [place] [address]Dr. Farhat Leal Calcium [Mass/Vol] 8.7 mg/dL Normal 8.5-10.1 [facility] Comment on above: Performed By: #### C MP, MG, PHOS ####[facility] Xtoopqusiy[address] [place], [place] [address]Dr. Farhat Leal Chloride [Moles/Vol] 105 mmol/L Normal 98-107 [facility] Comment on above: Performed By: #### C MP, MG, PHOS ####[facility] Mihyjbuaho59[address] [place], [place] [address]Dr. Farhat Leal CO2 [Moles/Vol] 27.9 mmol/L Normal 21.0-32.0 [facility] Comment on above: Performed By: #### C MP, MG, PHOS ####[facility] Xoluwmmari0988 [place] [address]Dr. Farhat Leal Creatinine [Mass/Vol] 1.53 mg/dL Critically high 0.70-1.30 [facility] Comment on above: Performed By: #### C MP, MG, PHOS ####[facility] Jvyxwjuhek9555 [place] [address]Dr. Farhat Leal EGFR-AF GEORGIAN 54 mL/min/1.73m2 Critically low >=60 [facility] Comment on above: Performed By: #### C MP, MG, PHOS ####[facility] Scmzflkgvg5028 [place] [address]Dr. Yilan Leal EGFR-NON AF GEORGIAN 44 mL/min/1.73m2 Critically low >=60 [facility] Comment on above: Performed By: #### C MP, MG, PHOS ####[facility] Ehwtzrffun4344 [place] [address]Dr. Farhat Leal Globulin (S) [Mass/Vol] 3.4 g/dL Normal [facility] Comment on above: Performed By: #### C MP, MG, PHOS ####[facility] Ihnvxrzuas0404 [place] [address]Dr. Farhat Leal Glucose [Mass/Vol] 179 mg/dL Critically high 74-106 [facility] Comment on above: Performed By: #### C MP, MG, PHOS ####[facility] Gdupjlfnmg4279 [place] [address]Dr. Farhat Leal Potassium [Moles/Vol] 3.8 mmol/L Normal 3.5-5.1 [facility] Comment on above: Performed By: #### C MP, MG, PHOS ####[facility] Rchqkcgpke4210 [place] [address]Dr. Farhat Leal Protein [Mass/Vol] 6.0 g/dL Critically low 6.4-8.2 Th [facility] Comment on above: Performed By: #### C MP, MG, PHOS ####[facility] Kxgfmrdaaq1055 [place] [address]Dr. Farhat Leal Sodium [Moles/Vol] 142 mmol/L Normal 136-145 [facility] Comment on above: Performed By: #### C MP, MG, PHOS ####[facility] Yblgywxfhx3034 [place] [address]Dr. Farhat Leal Urea nitrogen [Mass/Vol] 56.0 mg/dL Critically high 7.0-18.0 [facility] Comment on above: Performed By: #### C MP, MG, PHOS ####[facility] Ziepxwjnbk4068 [place] [address]Dr. Farhat Leal Urea nitrogen/Creatinine [Mass ratio] 36.6 mg/mg [facility] Comment on above: Performed By: #### C MP, MG, PHOS ####[facility] Rnwxuolmgg9441 [place] [address]Dr. Farhat Leal FK506 (TACROLIMUS) WHOLE BLO ODon 06-08-2022 Tacrolimus (FK506), Blood 13.2 ng/mL Normal 2.0-20.0 [facility] Comment on above: Result Comment: Trou gh (immediately following transplant) 15.0 . Trough (steady state, 2 weeks or more after transplant): 3.0 - 8.0 . Performed by LC-MS/MS technology. Performed By: #### F K506T ####[facility] Izmbsfbbgf029[address] [place], [place] [address]Dr. Farhat Leal CBC AUTO DIFFon 06-05-2022 BASO # 0.1 103/ul Normal 0.0-0.1 [facility] Comment on above: Performed By: #### C BC ####[facility] Vsmoryiebf33[address] [place], [place] [address]Dr. Farhat Leal Basophils/100 WBC (Bld) 0.8 % Normal 0.2-2.0 [facility] Comment on above: Performed By: #### C BC ####[facility] Hmjbrvfytq1255[address] [place], [place] [address]Dr. Farhat Leal EO # 0.3 103/ul Normal 0.0-0.7 [facility] Comment on above: Performed By: #### C BC ####[facility] Owijuuhett5965[address] [place], [place] [address]Dr. Farhat Leal Eosinophils/100 WBC (Bld) 4.7 % Normal 0.9-7.0 [facility] Comment on above: Performed By: #### C BC ####[facility] Jmkzjzihft280[address] [place], [place] [address]Dr. Farhat Leal Erythrocyte distribution width (RBC) [Ratio] 15.1 % Critically high 11.0-15.0 [facility] Comment on above: Performed By: #### C BC ####[facility] Iiijwlyown1944[address] [place], [place] [address]Dr. Farhat Leal Hematocrit (Bld) [Volume fraction] 35.5 % Critically low 42.0-54.0 [facility] Comment on above: Performed By: #### C BC ####[facility] Tczrxlprzj9146 [place] [address]Dr. Farhat Leal Hemoglobin (Bld) [Mass/Vol] 11.7 g/dL Critically low 14.0-18.0 [facility] Comment on above: Performed By: #### C BC ####[facility] Qqiykxpqva7860 [place] [address]Dr. Farhat Leal IG # 0.01 10e3/ul Normal 0.00-0.03 [facility] Comment on above: Performed By: #### C BC ####[facility] Xmatillusz6909[address] [place], [place] [address]Dr. Madelynlorri Elvis IG % 0.2 % Normal 0.0-0.5 [facility] Comment on above: Performed By: #### C BC ####[facility] Lejyfsfhbe840[address] [place], [place] [address]Dr. Farhat Leal LYMPH # 2.1 103/ul Normal 1.2-3.8 [facility] Comment on above: Performed By: #### C BC ####[facility] Misoztjrca2101[address] [place], [place] [address]Dr. Farhat Leal Lymphocytes/100 WBC (Bld) 34.5 % Normal 20.5-60.0 [facility] Comment on above: Performed By: #### C BC ####[facility] Gzjgjvwahk[address] [place], [place] [address]Dr. Farhat Leal MANUAL DIFF REQ NO Normal [facility] Comment on above: Performed By: #### C BC ####[facility] Jkqkbjivpg67[address] [place], [place] [address]Dr. Farhat Leal MCH (RBC) [Entitic mass] 30.6 pg Normal 25.9-34.0 [facility] Comment on above: Performed By: #### C BC ####[facility] Rudqafgvaz30[address] [place], [place] [address]Dr. Farhat Leal MCHC (RBC) [Mass/Vol] 33.0 g/dL Normal 29.9-35.2 [facility] Comment on above: Performed By: #### C BC ####[facility] Zlxpkvycfd4418 [place] [id number]. Farhat Leal MCV (RBC) [Entitic vol] 92.9 fL Normal 80.0-94.0 [facility] Comment on above: Performed By: #### C BC ####[facility] Qhdaijqywy2774 [place] [id number]. Farhat Leal MONO # 0.7 103/ul Normal 0.3-0.8 [facility] Comment on above: Performed By: #### C BC ####[facility] Sgyeaeqezf4108 [place] [address]Dr. Farhat Leal Monocytes/100 WBC (Bld) 11.4 % Normal 1.7-12.0 [facility] Comment on above: Performed By: #### C BC ####[facility] Hwuxuejran05[address] [place], [place] [address]Dr. Farhat Leal NEUT # 2.9 103/ul Normal 1.4-6.5 [facility] Comment on above: Performed By: #### C BC ####[facility] Vndwxvotgf2299[address] [place], [place] [address]Dr. Farhat Leal Neutrophils/100 WBC (Bld) 48.4 % Normal 43.0-75.0 [facility] Comment on above: Performed By: #### C BC ####[facility] Puyndrzvbs057[address] [place], [place] [address]Dr. Farhat Leal Platelet mean volume (Bld) [Entitic vol] 10.7 fL Normal 9.5-13.5 [facility] Comment on above: Performed By: #### C BC ####[facility] [address] [place], [place] [address]Dr. Farhat Leal PLT 185 103/ul Normal 150-450 [facility] Comment on above: Performed By: #### C BC ####[facility] Icntwapxso1699 [place] [id number]. Farhat Elvis RBC 3.82 106/ul Critically low 4.70-6.10 [facility] Comment on above: Performed By: #### C BC ####[facility] Xxbdrfzclq5192 [place] [address]Dr. Madelynlorri Leal WBC 6.0 103/ul Normal 4.0-11.0 [facility] Comment on above: Performed By: #### C BC ####[facility] Ekcxiejmzg3566 [place] [address]Dr. Farhat Leal MAGNESIUMon 06-05-2022 Magnesium [Mass/Vol] 1.9 mg/dL Normal 1.8-2.4 [facility] Comment on above: Performed By: #### P HOS, MG ####[facility] Ehinhcfndj2625 [place] [address]Dr. Farhat Leal PHOSPHORUSon 06-05-2022 Phosphate [Mass/Vol] 4.4 mg/dL Normal 2.6-4.7 [facility] Comment on above: Performed By: #### P HOS, MG ####[facility] Xzdgchiufv[address] [place], [place] [address]Dr. Farhat Leal PROTIMEon 06-05-2022 INR Coag (PPP) [Relative time] 2.16 {INR} Normal [facility] Comment on above: Performed By: #### P T ####[facility] Miomghqqrv0[address] [place], [place] [address]Dr. Farhat Leal INR GUIDELINES SEE BELOW Normal [facility] Comment on above: Result Comment: MALINA RED INR: 2.0 - 3.0 CONDITIONS NOT LISTED BELOW 2.5 - 3.5 FOR PROSTHETIC HEART VALVE REPLACEMENT 2.5 - 3.5 RECURRENT THROMBOSIS Performed By: #### P T ####[facility] Gjlgdzyyxy28[address] [place] [address]Dr. Farhat Leal PT Coag (PPP) [Time] 21.9 s Critically high 9.0-11.6 [facility] Comment on above: Performed By: #### P T ####[facility] Quifredcjj[address] [place], [place] [address]Dr. Farhat Leal FK506 (TACROLIMUS) WHOLE BLO ODon 06-01-2022 Tacrolimus (FK506), Blood 26.4 ng/mL Invalid Interpretation Code 2.0-20.0 [facility] Comment on above: Result Comment: Trou gh (immediately following transplant) 15.0 . Trough (steady state, 2 weeks or more after transplant): 3.0 - 8.0 . Performed by LC-MS/MS technology.Patient drug level exceeds published reference range. Evaluateclinically for signs of potential toxicity. Performed By: #### F K506T ####[facility] [address] [place] [address]Dr. Farhat Leal CBC AUTO DIFFon 05-29-2022 BASO # 0.0 103/ul Normal 0.0-0.1 [facility] Comment on above: Performed By: #### C BC ####[facility] Exokivkegu[address] [place], [place] [address]DrSkylar Leal Basophils/100 WBC (Bld) 0.6 % Normal 0.2-2.0 [facility] Comment on above: Performed By: #### C BC ####[facility] Ijabmwfotw85[address] [place], [place] [address]DrSkylar Leal EO # 0.3 103/ul Normal 0.0-0.7 [facility] Comment on above: Performed By: #### C BC ####[facility] Ombroakntx[address] [place], [place] [address]Skylar Leal Eosinophils/100 WBC (Bld) 4.7 % Normal 0.9-7.0 [facility] Comment on above: Performed By: #### C BC ####[facility] Zbtxvxczyn[address] [place], [place] [address]DrSkylar Leal Erythrocyte distribution width (RBC) [Ratio] 15.3 % Critically high 11.0-15.0 [facility] Comment on above: Performed By: #### C BC ####[facility] Xybannbwcd[address] [place], [place] [address]DrSkylar Leal Hematocrit (Bld) [Volume fraction] 36.6 % Critically low 42.0-54.0 [facility] Comment on above: Performed By: #### C BC ####[facility] Qgyxmcgbsi[address] [place] [address]. Farhat Leal Hemoglobin (Bld) [Mass/Vol] 12.3 g/dL Critically low 14.0-18.0 [facility] Comment on above: Performed By: #### C BC ####[facility] Ptc[address]iliouv[address] [place] [address]Dr. Farhat Leal IG # 0.02 10e3/ul Normal 0.00-0.03 [facility] Comment on above: Performed By: #### C BC ####[facility] Lbssvudxmv[address] [place] [address]Dr. Frahat Leal IG % 0.3 % Normal 0.0-0.5 [facility] Comment on above: Performed By: #### C BC ####[facility] Wunoywtrwg9387[address] [place], [place] [address]Dr. Farhat Leal LYMPH # 2.8 103/ul Normal 1.2-3.8 [facility] Comment on above: Performed By: #### C BC ####[facility] Bucfamjave177[address] [place], [place] [address]Dr. Farhat Leal Lymphocytes/100 WBC (Bld) 44.4 % Normal 20.5-60.0 [facility] Comment on above: Performed By: #### C BC ####[facility] Pnkwkncfsu9649[address] [place], [place] [address]Dr. Farhat Leal MANUAL DIFF REQ NO Normal [facility] Comment on above: Performed By: #### C BC ####[facility] Svqdryeybd010[address] [place], [place] [address]Dr. Farhat Leal MCH (RBC) [Entitic mass] 30.4 pg Normal 25.9-34.0 [facility] Comment on above: Performed By: #### C BC ####[facility] Ijljfdiefq5589[address] [place], [place] [address]Dr. Farhat Leal MCHC (RBC) [Mass/Vol] 33.6 g/dL Normal 29.9-35.2 [facility] Comment on above: Performed By: #### C BC ####[facility] Jjracecdjh8044[address] [place], [place] [address]Dr. Farhat Leal MCV (RBC) [Entitic vol] 90.4 fL Normal 80.0-94.0 [facility] Comment on above: Performed By: #### C BC ####[facility] Cddrynukow[address] [place] [address]Dr. Farhat Leal MONO # 0.7 103/ul Normal 0.3-0.8 [facility] Comment on above: Performed By: #### C BC ####[facility] Apbwzppjtg0729[address] [place], [place] [address]Dr. Farhat Leal Monocytes/100 WBC (Bld) 10.7 % Normal 1.7-12.0 [facility] Comment on above: Performed By: #### C BC ####[facility] Qdcuirjhlb4817[address] [place], [place] [address]Dr. Farhat Leal NEUT # 2.5 103/ul Normal 1.4-6.5 [facility] Comment on above: Performed By: #### C BC ####[facility] Jgptrtwxgr6579[address] [place], [place] [address]Dr. Farhat Leal Neutrophils/100 WBC (Bld) 39.3 % Critically low 43.0-75.0 [facility] Comment on above: Performed By: #### C BC ####[facility] Qorwswcraa3999[address] [place], [place] [address]Dr. Farhat Elvis Platelet mean volume (Bld) [Entitic vol] 10.5 fL Normal 9.5-13.5 [facility] Comment on above: Performed By: #### C BC ####[facility] Ljbmrhdjhh005[address] [place], [place] [address]Dr. Farhat Elvis PLT 190 103/ul Normal 150-450 [facility] Comment on above: Performed By: #### C BC ####[facility] Foyybkhqfv816[address] [place], [place] [address]DrSkylar Farhat Elvis RBC 4.05 106/ul Critically low 4.70-6.10 [facility] Comment on above: Performed By: #### C BC ####[facility] Ohevmubfuy939[address] [place], [place] [address]Dr. Farhat Leal WBC 6.4 103/ul Normal 4.0-11.0 [facility] Comment on above: Performed By: #### C BC ####[facility] Bcwwivrodi7589[address] [place], [place] [address]DrSkylar Leal PROF 14(COMP METB)on 023 Albumin [Mass/Vol] 2.5 g/dL Critically low 3.4-5.0 [facility] Comment on above: Performed By: #### C MP ####[facility] Gvmhsvukgj3135[address] [place], [place] [address]Dr. Farhat Leal Albumin/Globulin [Mass ratio] 0.8 {ratio} Normal [facility] Comment on above: Performed By: #### C MP ####[facility] Oqlhrmeluq1920[address] [place], [place] [address]Dr. Farhat Leal ALP [Catalytic activity/Vol] 61 U/L Normal 46-116 [facility] Comment on above: Performed By: #### C MP ####[facility] Ptlonzrrry0044[address] [place], [place] [address]Dr. Farhat Leal ALT [Catalytic activity/Vol] 16 U/L Normal 16-63 [facility] Comment on above: Performed By: #### C MP ####[facility] Twdczcdfyh047[address] [place], [place] [address]Dr. Farhat Leal Anion gap [Moles/Vol] 12.3 mmol/L Normal [facility] Comment on above: Performed By: #### C MP ####[facility] Qszkrfppib9445[address] [place], [place] [address]Dr. Farhat Leal AST [Catalytic activity/Vol] 18 U/L Normal 15-37 [facility] Comment on above: Performed By: #### C MP ####[facility] Jukpowvybe6568[address] [place], [place] [address]Dr. Farhat Leal Bilirubin [Mass/Vol] 0.5 mg/dL Normal 0.2-1.0 [facility] Comment on above: Performed By: #### C MP ####[facility] Ckjopmcqnn774[address] [place], [place] [address]Dr. Farhat Leal Calcium [Mass/Vol] 8.6 mg/dL Normal 8.5-10.1 [facility] Comment on above: Performed By: #### C MP ####[facility] Fsjixwtjez554[address] [place], [place] [address]Dr. Farhat Leal Chloride [Moles/Vol] 105 mmol/L Normal 98-107 [facility] Comment on above: Performed By: #### C MP ####[facility] Obbfexsmvp2734[address] [place], [place] [address]Dr. Madelynlorri Elvis CO2 [Moles/Vol] 28.6 mmol/L Normal 21.0-32.0 [facility] Comment on above: Performed By: #### C MP ####[facility] Hbiynqfzuf816[address] [place], [place] [address]Dr. Farhat Leal Creatinine [Mass/Vol] 1.47 mg/dL Critically high 0.70-1.30 [facility] Comment on above: Performed By: #### C MP ####[facility] Xigjejwblv3615[address] [place], [place] [address]Dr. Farhat Leal EGFR-AF GEORGIAN 56 mL/min/1.73m2 Critically low >=60 [facility] Comment on above: Performed By: #### C MP ####[facility] Zoiorxkrbc3237[address] [place], [place] [address]Dr. Farhat Leal EGFR-NON AF GEORGIAN 46 mL/min/1.73m2 Critically low >=60 [facility] Comment on above: Performed By: #### C MP ####[facility] Inmvtxxkmi7764[address] [place], [place] [address]Dr. Farhat Leal Globulin (S) [Mass/Vol] 3.3 g/dL Normal [facility] Comment on above: Performed By: #### C MP ####[facility] Fzukphbnrs425[address] [place], [place] [address]Dr. Farhat Leal Glucose [Mass/Vol] 164 mg/dL Critically high 74-106 [facility] Comment on above: Performed By: #### C MP ####[facility] Urzvskdhxn6605[address] [place], [place] [address]Dr. Farhat Leal Potassium [Moles/Vol] 3.9 mmol/L Normal 3.5-5.1 [facility] Comment on above: Performed By: #### C MP ####[facility] Fkbuvgmqsd5127[address] [place], [place] [address]Dr. Farhat Leal Protein [Mass/Vol] 5.8 g/dL Critically low 6.4-8.2 Th e [facility] Comment on above: Performed By: #### C MP ####[facility] Qiqvsnnaws8470[address] [place], [place] [address]Dr. Farhat Leal Sodium [Moles/Vol] 142 mmol/L Normal 136-145 [facility] Comment on above: Performed By: #### C MP ####[facility] Txtetjykfs5599[address] [place], [place] [address]Dr. Farhat Leal Urea nitrogen [Mass/Vol] 53.0 mg/dL Critically high 7.0-18.0 [facility] Comment on above: Performed By: #### C MP ####[facility] Uaixhzqdqi2089[address] [place], [place] [address]Dr. Farhat Leal Urea nitrogen/Creatinine [Mass ratio] 36.1 mg/mg Normal [facility] Comment on above: Performed By: #### C MP ####[facility] Lpczjnanfi076[address] [place], [place] [address]Dr. Farhat Leal PROTIMEon 05-29-2022 INR Coag (PPP) [Relative time] 2.41 {INR} Normal [facility] Comment on above: Performed By: #### P T ####[facility] Ircrocbotx2311[address] [place], [place] [address]Dr. Farhat Leal INR GUIDELINES SEE BELOW Normal [facility] Comment on above: Result Comment: MALINA RED INR: 2.0 - 3.0 CONDITIONS NOT LISTED BELOW 2.5 - 3.5 FOR PROSTHETIC HEART VALVE REPLACEMENT 2.5 - 3.5 RECURRENT THROMBOSIS Performed By: #### P T ####[facility] Ugoywusgum3839[address] [place], [place] [address]Dr. Farhat Leal PT Coag (PPP) [Time] 24.3 s Critically high 9.0-11.6 [facility] Comment on above: Performed By: #### P T ####[facility] Hjlonwfpzf2023[address] [place], [place] [address]DrSkylar Leal FK506 (TACROLIMUS) WHOLE BLO ODon 05-25-2022 Tacrolimus (FK506), Blood 5.1 ng/mL Normal 2.0-20.0 [facility] Comment on above: Result Comment: Trou gh (immediately following transplant) 15.0 . Trough (steady state, 2 weeks or more after transplant): 3.0 - 8.0 . Performed by LC-MS/MS technology. Performed By: #### F K506T ####[facility] Hwpclyitmr[address] [place], [place] [address]DrSkylar Leal CBC AUTO DIFFon 05-22-2022 BASO # 0.0 103/ul Normal 0.0-0.1 [facility] Comment on above: Performed By: #### C BC ####[facility] Nzlhvdfwwq9995[address] [place], [place] [address]DrSkylar Leal Basophils/100 WBC (Bld) 0.5 % Normal 0.2-2.0 [facility] Comment on above: Performed By: #### C BC ####[facility] Dzggffyyrs3640[address] [place], [place] [address]DrSkylar Leal EO # 0.2 103/ul Normal 0.0-0.7 [facility] Comment on above: Performed By: #### C BC ####[facility] Ndpdmuxlbl1711[address] [place], [place] [address]Dr. Farhat Leal Eosinophils/100 WBC (Bld) 4.0 % Normal 0.9-7.0 [facility] Comment on above: Performed By: #### C BC ####[facility] Tzcbqwhwqz9513[address] [place], [place] [address]DrSkylar Leal Erythrocyte distribution width (RBC) [Ratio] 15.5 % Critically high 11.0-15.0 [facility] Comment on above: Performed By: #### C BC ####[facility] Nigvnsjedw585[address] [place], [place] [address]DrSkylar Leal Hematocrit (Bld) [Volume fraction] 34.1 % Critically low 42.0-54.0 [facility] Comment on above: Performed By: #### C BC ####[facility] Cou[address]ujxltf[address] [place] [address]DrSkylar Leal Hemoglobin (Bld) [Mass/Vol] 11.3 g/dL Critically low 14.0-18.0 [facility] Comment on above: Performed By: #### C BC ####[facility] J[address]bzcok[address] [place] [address]DrSkylar Leal IG # 0.03 10e3/ul Normal 0.00-0.03 [facility] Comment on above: Performed By: #### C BC ####[facility] Mkpaolrslc155[address] [place], [place] [address]DrSkylar Leal IG % 0.5 % Normal 0.0-0.5 [facility] Comment on above: Performed By: #### C BC ####[facility] Usdpbtfgqh66[address] [place], [place] [address]DrSkylar Leal LYMPH # 2.1 103/ul Normal 1.2-3.8 [facility] Comment on above: Performed By: #### C BC ####[facility] Llaovsbdfs517[address] [place], [place] [address]DrSkylar Leal Lymphocytes/100 WBC (Bld) 34.6 % Normal 20.5-60.0 [facility] Comment on above: Performed By: #### C BC ####[facility] Outjhaobzg[address] [place] [address]DrSkylar Leal MANUAL DIFF REQ NO Normal [facility] Comment on above: Performed By: #### C BC ####[facility] Kwjb[address]eyx[address] [place] [id number] Leal MCH (RBC) [Entitic mass] 30.3 pg Normal 25.9-34.0 [facility] Comment on above: Performed By: #### C BC ####[facility] Buubknyxpk[address] [place] [address]DrSkylar Leal MCHC (RBC) [Mass/Vol] 33.1 g/dL Normal 29.9-35.2 [facility] Comment on above: Performed By: #### C BC ####[facility] Ltqektvorj8[address] [place] [address]Dr. Farhat Leal MCV (RBC) [Entitic vol] 91.4 fL Normal 80.0-94.0 [facility] Comment on above: Performed By: #### C BC ####[facility] Tkmjsxqmrw68[address] [place] [address]Dr. Farhat Leal MONO # 0.7 103/ul Normal 0.3-0.8 [facility] Comment on above: Performed By: #### C BC ####[facility] Opqwwkadop25[address] [place] [address]Dr. Farhat Leal Monocytes/100 WBC (Bld) 11.6 % Normal 1.7-12.0 [facility] Comment on above: Performed By: #### C BC ####[facility] Gpmikmqazo4601[address] [place], [place] [address]Dr. Farhat Leal NEUT # 2.9 103/ul Normal 1.4-6.5 [facility] Comment on above: Performed By: #### C BC ####[facility] Dkjfamrrts9945[address] [place], [place] [address]Dr. Farhat Elvis Neutrophils/100 WBC (Bld) 48.8 % Normal 43.0-75.0 [facility] Comment on above: Performed By: #### C BC ####[facility] Msmbevwcnt94[address] [place], [place] [address]Dr. Farhat Elvis Platelet mean volume (Bld) [Entitic vol] 10.9 fL Normal 9.5-13.5 [facility] Comment on above: Performed By: #### C BC ####[facility] Aewblcsrsr[address] [place], [place] [address]Dr. Farhat Elvis PLT 186 103/ul Normal 150-450 [facility] Comment on above: Performed By: #### C BC ####[facility] Qz[address]udbzwf5[address] [place] [phone]. Farhat Leal RBC 3.73 106/ul Critically low 4.70-6.10 [facility] Comment on above: Performed By: #### C BC ####[facility] Eivbtfhvgp75[address] [place] [address]Dr. Farhat Leal WBC 6.0 103/ul Normal 4.0-11.0 [facility] Comment on above: Performed By: #### C BC ####[facility] K[address]rwa[address] [place] [address]Dr. Farhat Leal PROF 14(COMP METB)on 023 Albumin [Mass/Vol] 2.7 g/dL Critically low 3.4-5.0 [facility] Comment on above: Performed By: #### C MP ####[facility] Glzsrlmfps7[address] [place] [address]Dr. Farhat Leal Albumin/Globulin [Mass ratio] 0.8 {ratio} Normal [facility] Comment on above: Performed By: #### C MP ####[facility] Yhfcxanfaa320[address] [place], [place] [address]Dr. Farhat Leal ALP [Catalytic activity/Vol] 60 U/L Normal 46-116 [facility] Comment on above: Performed By: #### C MP ####[facility] Dbsqwzsatj4835[address] [place], [place] [address]Dr. Farhat Leal ALT [Catalytic activity/Vol] 17 U/L Normal 16-63 [facility] Comment on above: Performed By: #### C MP ####[facility] Qtrigxoqid26[address] [place] [address]Dr. Farhat Leal Anion gap [Moles/Vol] 9.6 mmol/L Normal [facility] Comment on above: Performed By: #### C MP ####[facility] Xpdenbjxlp85[address] [place] [address]Dr. Farhat Leal AST [Catalytic activity/Vol] 14 U/L Critically low 15-37 [facility] Comment on above: Performed By: #### C MP ####[facility] Rbtspbtihf[address] [place] [address]Dr. Farhat Leal Bilirubin [Mass/Vol] 0.5 mg/dL Normal 0.2-1.0 [facility] Comment on above: Performed By: #### C MP ####[facility] Hmaqfemxbk4[address] [place] [address]Dr. Farhat Leal Calcium [Mass/Vol] 8.4 mg/dL Critically low 8.5-10.1 Th e [facility] Comment on above: Performed By: #### C MP ####[facility] Jfejpzvphj65[address] [place] [phone]. Farhat Leal Chloride [Moles/Vol] 104 mmol/L Normal 98-107 [facility] Comment on above: Performed By: #### C MP ####[facility] Xpkxctluib58[address] [place] [address]Dr. Farhat Leal CO2 [Moles/Vol] 27.2 mmol/L Normal 21.0-32.0 [facility] Comment on above: Performed By: #### C MP ####[facility] Vztaijjupz06[address] [place], [place] [address]Dr. Farhat Leal Creatinine [Mass/Vol] 1.24 mg/dL Normal 0.70-1.30 [facility] Comment on above: Performed By: #### C MP ####[facility] Zmgyfosdio[address] [place], [place] [address]Dr. Farhat Leal EGFR-AF GEORGIAN >60 Normal >=60 [facility] Comment on above: Performed By: #### C MP ####[facility] Bvoabwvioy3[address] [place] [address]Dr. Farhat Elvis EGFR-NON AF GEORGIAN 57 mL/min/1.73m2 Critically low >=60 [facility] Comment on above: Performed By: #### C MP ####[facility] Shwh[address]ajnyk[address] [place] [phone]. Farhat Leal Globulin (S) [Mass/Vol] 3.3 g/dL Normal [facility] Comment on above: Performed By: #### C MP ####[facility] Ismfftqogi93[address] [place] [phone]. Madelynlorri Elvis Glucose [Mass/Vol] 275 mg/dL Critically high 74-106 T [facility] Comment on above: Performed By: #### C MP ####[facility] Yaeggxiugv0[address] [place] [address]Dr. Madelynlorri Elvis Potassium [Moles/Vol] 3.8 mmol/L Normal 3.5-5.1 [facility] Comment on above: Performed By: #### C MP ####[facility] Rdsxfgoadr7[address] [place] [address]Dr. Farhat Leal Protein [Mass/Vol] 6.0 g/dL Critically low 6.4-8.2 Th [facility] Comment on above: Performed By: #### C MP ####[facility] Yfsxzsusnl364[address] [place], [place] [address]Dr. Farhat Leal Sodium [Moles/Vol] 137 mmol/L Normal 136-145 [facility] Comment on above: Performed By: #### C MP ####[facility] Sdbrtbiwmr75[address] [place], [place] [address]Dr. Farhat Leal Urea nitrogen [Mass/Vol] 54.0 mg/dL Critically high 7.0-18.0 [facility] Comment on above: Performed By: #### C MP ####[facility] Dibxdsaelc[address] [place], [place] [address]Dr. Farhat Leal Urea nitrogen/Creatinine [Mass ratio] 43.5 mg/mg Normal [facility] Comment on above: Performed By: #### C MP ####[facility] Ritzlpbrou22[address] [place], [place] [address]Dr. Farhat Leal PROTIMEon 05-22-2022 INR Coag (PPP) [Relative time] 2.27 {INR} Normal [facility] Comment on above: Performed By: #### P T ####[facility] Yjtyjaigsz8[address] [place], [place] [address]Dr. Farhat Leal INR GUIDELINES SEE BELOW Normal [facility] Comment on above: Result Comment: MALINA RED INR: 2.0 - 3.0 CONDITIONS NOT LISTED BELOW 2.5 - 3.5 FOR PROSTHETIC HEART VALVE REPLACEMENT 2.5 - 3.5 RECURRENT THROMBOSIS Performed By: #### P T ####[facility] Ctxbahutxe[address] [place], [place] [id number]. Farhat Leal PT Coag (PPP) [Time] 23.0 s Critically high 9.0-11.6 [facility] Comment on above: Performed By: #### P T ####[facility] Zuqpcqtcpn[address] [place], [place] [address]Dr. Farhat Leal FK506 (TACROLIMUS) WHOLE BLO ODon 05-19-2022 Tacrolimus (FK506), Blood 7.8 ng/mL Normal 2.0-20.0 [facility] Comment on above: Result Comment: Trou gh (immediately following transplant) 15.0 . Trough (steady state, 2 weeks or more after transplant): 3.0 - 8.0 . Performed by LC-MS/MS technology. Performed By: #### F K506T ####[facility] Ylszknblzd[address] [place], [place] [address]Dr. Farhat Leal CBC AUTO DIFFon 05-15-2022 BASO # 0.0 103/ul Normal 0.0-0.1 [facility] Comment on above: Performed By: #### C BC ####[facility] Idwnbbwlgw85[address] [place], [place] [address]Dr. Farhat Leal Basophils/100 WBC (Bld) 0.4 % Normal 0.2-2.0 [facility] Comment on above: Performed By: #### C BC ####[facility] Tldtkcdiuz4[address] [place], [place] [address]Dr. Farhat Leal EO # 0.2 103/ul Normal 0.0-0.7 [facility] Comment on above: Performed By: #### C BC ####[facility] Eyiarrgmut728[address] [place], [place] [address]Dr. Farhat Leal Eosinophils/100 WBC (Bld) 3.0 % Normal 0.9-7.0 [facility] Comment on above: Performed By: #### C BC ####[facility] Mouiazdobo12[address] [place], [place] [address]Dr. Farhat Leal Erythrocyte distribution width (RBC) [Ratio] 15.7 % Critically high 11.0-15.0 [facility] Comment on above: Performed By: #### C BC ####[facility] Ks[address]unuayc[address] [place] [address]Dr. Farhat Leal Hematocrit (Bld) [Volume fraction] 36.8 % Critically low 42.0-54.0 [facility] Comment on above: Performed By: #### C BC ####[facility] Ktckvwlbgi5071 [place] [address]Dr. Farhat Leal Hemoglobin (Bld) [Mass/Vol] 12.4 g/dL Critically low 14.0-18.0 [facility] Comment on above: Performed By: #### C BC ####[facility] Xmigagwdqs514[address] [place], [place] [address]Dr. Farhat Leal IG # 0.01 10e3/ul Normal 0.00-0.03 [facility] Comment on above: Performed By: #### C BC ####[facility] Hmwjcvrtxs3[address] [place], [place] [address]Dr. Farhat Leal IG % 0.1 % Normal 0.0-0.5 [facility] Comment on above: Performed By: #### C BC ####[facility] Mknqlniutt217[address] [place], [place] [address]Dr. Farhat Leal LYMPH # 2.4 103/ul Normal 1.2-3.8 [facility] Comment on above: Performed By: #### C BC ####[facility] Xzjrivudet[address] [place], [place] [address]Dr. Farhat Leal Lymphocytes/100 WBC (Bld) 35.6 % Normal 20.5-60.0 [facility] Comment on above: Performed By: #### C BC ####[facility] Ywcywknxru14[address] [place], [place] [address]Dr. Farhat Leal MANUAL DIFF REQ NO Normal [facility] Comment on above: Performed By: #### C BC ####[facility] Wedtxvybjb247[address] [place], [place] [address]Dr. Farhat Leal MCH (RBC) [Entitic mass] 30.1 pg Normal 25.9-34.0 [facility] Comment on above: Performed By: #### C BC ####[facility] Ujoqthzayg[address] [place] [id number]. Farhat Leal MCHC (RBC) [Mass/Vol] 33.7 g/dL Normal 29.9-35.2 [facility] Comment on above: Performed By: #### C BC ####[facility] Hsublrcelu9[address] [place] [phone]. Farhat Leal MCV (RBC) [Entitic vol] 89.3 fL Normal 80.0-94.0 [facility] Comment on above: Performed By: #### C BC ####[facility] Swdavaeehx2180 [place] [phone]. Farhat Elvis MONO # 0.7 103/ul Normal 0.3-0.8 [facility] Comment on above: Performed By: #### C BC ####[facility] Dkyfhwstxy444[address] [place], [place] [address]Dr. Farhat Leal Monocytes/100 WBC (Bld) 10.8 % Normal 1.7-12.0 [facility] Comment on above: Performed By: #### C BC ####[facility] Qssebxaljc[address] [place], [place] [address]Dr. Farhat Leal NEUT # 3.4 103/ul Normal 1.4-6.5 [facility] Comment on above: Performed By: #### C BC ####[facility] Ajsnqfahqx[address] [place], [place] [address]Dr. Farhat Leal Neutrophils/100 WBC (Bld) 50.1 % Normal 43.0-75.0 [facility] Comment on above: Performed By: #### C BC ####[facility] Pkyycniczu37[address] [place], [place] [address]Dr. Farhat Leal Platelet mean volume (Bld) [Entitic vol] 10.2 fL Normal 9.5-13.5 [facility] Comment on above: Performed By: #### C BC ####[facility] Gjkigprvfi6362 [place] [phone]. Farhat Leal PLT 190 103/ul Normal 150-450 [facility] Comment on above: Performed By: #### C BC ####[facility] Ewdpcuuvop7263 [place] [phone]. Farhat Leal RBC 4.12 106/ul Critically low 4.70-6.10 [facility] Comment on above: Performed By: #### C BC ####[facility] Mghvhqjovz9028 [place] [phone]. Farhat Leal WBC 6.8 103/ul Normal 4.0-11.0 [facility] Comment on above: Performed By: #### C BC ####[facility] Lptsxkyloo6911 [place] [address]Dr. Farhat Leal PROF 14(COMP METB)on 023 Albumin [Mass/Vol] 2.8 g/dL Critically low 3.4-5.0 [facility] Comment on above: Performed By: #### C MP ####[facility] Cmvsjaehkv04[address] [place], [place] [address]Dr. Farhat Leal Albumin/Globulin [Mass ratio] 0.9 {ratio} Normal [facility] Comment on above: Performed By: #### C MP ####[facility] Wghdlgnpzr8228 [place] [address]Dr. Farhat Leal ALP [Catalytic activity/Vol] 66 U/L Normal 46-116 [facility] Comment on above: Performed By: #### C MP ####[facility] Tccdpyjiex5689 [place] [address]Dr. Farhat Leal ALT [Catalytic activity/Vol] 15 U/L Critically low 16-63 [facility] Comment on above: Performed By: #### C MP ####[facility] Vsgodyvdnd0338 [place] [address]Dr. Farhat Leal Anion gap [Moles/Vol] 11.1 mmol/L Normal [facility] Comment on above: Performed By: #### C MP ####[facility] Zqklgccszz1150 [place] [address]Dr. Farhat Leal AST [Catalytic activity/Vol] 14 U/L Critically low 15-37 [facility] Comment on above: Performed By: #### C MP ####[facility] Vlcpiyqmpy8451 [place] [phone]. Farhat Leal Bilirubin [Mass/Vol] 0.8 mg/dL Normal 0.2-1.0 [facility] Comment on above: Performed By: #### C MP ####[facility] Nxvtpvnnem0534 [place] [phone]. Farhat Leal Calcium [Mass/Vol] 8.9 mg/dL Normal 8.5-10.1 [facility] Comment on above: Performed By: #### C MP ####[facility] Btrprsdnwe1979 [place] [phone]. Farhat Leal Chloride [Moles/Vol] 101 mmol/L Normal 98-107 [facility] Comment on above: Performed By: #### C MP ####[facility] Gvndgglfrg1605 [place] [phone]. Farhat Leal CO2 [Moles/Vol] 28.2 mmol/L Normal 21.0-32.0 [facility] Comment on above: Performed By: #### C MP ####[facility] Pjnspxtian5250 [place] [phone]. Farhat Leal Creatinine [Mass/Vol] 1.23 mg/dL Normal 0.70-1.30 [facility] Comment on above: Performed By: #### C MP ####[facility] Dapcxdhfzx0760 [place] [phone]. Farhat Leal EGFR-AF GEORGIAN >60 Normal >=60 [facility] Comment on above: Performed By: #### C MP ####[facility] Inueqsrywb0011 [place] [phone]. Farhat Leal EGFR-NON AF GEORGIAN 57 mL/min/1.73m2 Critically low >=60 [facility] Comment on above: Performed By: #### C MP ####[facility] Ylkusjvvtr[address] [place], [place] [address]Dr. Farhat Leal Globulin (S) [Mass/Vol] 3.2 g/dL Normal [facility] Comment on above: Performed By: #### C MP ####[facility] Znlswazmly5087 [place] [address]Dr. Farhat Leal Glucose [Mass/Vol] 333 mg/dL Critically high 74-106 [facility] Comment on above: Performed By: #### C MP ####[facility] Weijpapqly8622 [place] [address]Dr. Farhat Leal Potassium [Moles/Vol] 4.3 mmol/L Normal 3.5-5.1 [facility] Comment on above: Performed By: #### C MP ####[facility] Edyppkzcbv3582 [place] [address]Dr. Farhat Leal Protein [Mass/Vol] 6.0 g/dL Critically low 6.4-8.2 [facility] Comment on above: Performed By: #### C MP ####[facility] Vlgookbdif[address] [place], [place] [address]Dr. Farhat Leal Sodium [Moles/Vol] 136 mmol/L Normal 136-145 [facility] Comment on above: Performed By: #### C MP ####[facility] Ryzmxcibqh038[address] [place], [place] [address]Dr. Farhat Elvis Urea nitrogen [Mass/Vol] 58.0 mg/dL Critically high 7.0-18.0 [facility] Comment on above: Performed By: #### C MP ####[facility] Smxcfysjdy1060[address] [place], [place] [address]Dr. Farhat Elvis Urea nitrogen/Creatinine [Mass ratio] 47.2 mg/mg Normal [facility] Comment on above: Performed By: #### C MP ####[facility] Farumhogkf2948 [place] [address]Dr. Madelynlorri Leal PROTIMEon 05-13-2022 INR Coag (PPP) [Relative time] 3.51 {INR} Normal [facility] Comment on above: Performed By: #### P T ####[facility] Sbrimmtvkd4539 [place] [address]Dr. Madelynlorri Elvis INR GUIDELINES SEE BELOW Normal [facility] Comment on above: Result Comment: MALINA RED INR: 2.0 - 3.0 CONDITIONS NOT LISTED BELOW 2.5 - 3.5 FOR PROSTHETIC HEART VALVE REPLACEMENT 2.5 - 3.5 RECURRENT THROMBOSIS Performed By: #### P T ####[facility] Vppletczvl[address] [place], [place] [address]DrSkylar Leal PT Coag (PPP) [Time] 34.7 s Critically high 9.0-11.6 [facility] Comment on above: Performed By: #### P T ####[facility] Uplzqckgae9[address] [place], [place] [address]DrSkylar Leal FK506 (TACROLIMUS) WHOLE BLO ODon 05-11-2022 Tacrolimus (FK506), Blood 14.4 ng/mL Normal 2.0-20.0 [facility] Comment on above: Result Comment: Trou gh (immediately following transplant) 15.0 . Trough (steady state, 2 weeks or more after transplant): 3.0 - 8.0 . Performed by LC-MS/MS technology. Performed By: #### F K506T ####[facility] Usdlevczne24364[address] [place], [place] [address]DrSkylar Leal CBC AUTO DIFFon 05-08-2022 BASO # 0.0 103/ul Normal 0.0-0.1 [facility] Comment on above: Performed By: #### C BC ####[facility] Psxbroevho4944[address] [place], [place] [address]DrSkylar Leal Basophils/100 WBC (Bld) 0.5 % Normal 0.2-2.0 [facility] Comment on above: Performed By: #### C BC ####[facility] Wjjgpahhqg1832[address] [place], [place] [address]DrSkylar Leal EO # 0.2 103/ul Normal 0.0-0.7 [facility] Comment on above: Performed By: #### C BC ####[facility] Eudejfozit1528[address] [place], [place] [address]DrSkylar Leal Eosinophils/100 WBC (Bld) 2.9 % Normal 0.9-7.0 [facility] Comment on above: Performed By: #### C BC ####[facility] Xvffqzlugk[address] [place], [place] [address]DrSkylar Leal Erythrocyte distribution width (RBC) [Ratio] 16.0 % Critically high 11.0-15.0 [facility] Comment on above: Performed By: #### C BC ####[facility] Wuwprmupxv2822 [place] [address]Dr. Farhat Leal Hematocrit (Bld) [Volume fraction] 35.7 % Critically low 42.0-54.0 [facility] Comment on above: Performed By: #### C BC ####[facility] Auvfkncljj9353 [place] [address]Dr. Farhat Leal Hemoglobin (Bld) [Mass/Vol] 11.9 g/dL Critically low 14.0-18.0 [facility] Comment on above: Performed By: #### C BC ####[facility] Gtrbixlmho7115[address] [place], [place] [address]Dr. Farhat Leal IG # 0.03 10e3/ul Normal 0.00-0.03 [facility] Comment on above: Performed By: #### C BC ####[facility] Pymcjybaeh301[address] [place], [place] [address]Dr. Farhat Leal IG % 0.5 % Normal 0.0-0.5 [facility] Comment on above: Performed By: #### C BC ####[facility] Qipwkfnjky9387[address] [place], [place] [address]Dr. Farhat Leal LYMPH # 2.4 103/ul Normal 1.2-3.8 [facility] Comment on above: Performed By: #### C BC ####[facility] Qgqaecyhrx989[address] [place], [place] [address]Dr. Farhat Leal Lymphocytes/100 WBC (Bld) 37.8 % Normal 20.5-60.0 [facility] Comment on above: Performed By: #### C BC ####[facility] Gebovvodwq[address] [place], [place] [address]Dr. Farhat Elvis MANUAL DIFF REQ NO Normal [facility] Comment on above: Performed By: #### C BC ####[facility] Ouxsgsgous128[address] [place], [place] [address]Dr. Farhat Leal MCH (RBC) [Entitic mass] 30.4 pg Normal 25.9-34.0 [facility] Comment on above: Performed By: #### C BC ####[facility] Pgbuwgnaki3109 [place] [address]DrSkylar Leal MCHC (RBC) [Mass/Vol] 33.3 g/dL Normal 29.9-35.2 [facility] Comment on above: Performed By: #### C BC ####[facility] Vdoybtkrep022[address] [place], [place] [address]DrSkylar Leal MCV (RBC) [Entitic vol] 91.1 fL Normal 80.0-94.0 [facility] Comment on above: Performed By: #### C BC ####[facility] Whlbnpidwo79[address] [place], [place] [address]DrSkylar Leal MONO # 0.7 103/ul Normal 0.3-0.8 [facility] Comment on above: Performed By: #### C BC ####[facility] Diaveluixl697[address] [place], [place] [address]DrSkylar Leal Monocytes/100 WBC (Bld) 11.1 % Normal 1.7-12.0 [facility] Comment on above: Performed By: #### C BC ####[facility] Keazmipmim58[address] [place], [place] [address]DrSkylar Leal NEUT # 2.9 103/ul Normal 1.4-6.5 [facility] Comment on above: Performed By: #### C BC ####[facility] Yjsljrwymv75[address] [place], [place] [address]DrSkylar Leal Neutrophils/100 WBC (Bld) 47.2 % Normal 43.0-75.0 [facility] Comment on above: Performed By: #### C BC ####[facility] Zwawqcowye39[address] [place], [place] [address]DrSkylar Leal Platelet mean volume (Bld) [Entitic vol] 11.0 fL Normal 9.5-13.5 [facility] Comment on above: Performed By: #### C BC ####[facility] Qkikhizwta8[address] [place], [place] [address]Dr. Farhat Leal PLT 191 103/ul Normal 150-450 [facility] Comment on above: Performed By: #### C BC ####[facility] Mfdibwylry7387 [place] [address]Dr. Farhat Leal RBC 3.92 106/ul Critically low 4.70-6.10 [facility] Comment on above: Performed By: #### C BC ####[facility] Kjbkcfjxfz9376 [place] [address]Dr. Farhat Leal WBC 6.2 103/ul Normal 4.0-11.0 [facility] Comment on above: Performed By: #### C BC ####[facility] Ojtlizxrvi8748 [place] [address]Dr. Farhat Leal MAGNESIUMon 05-08-2022 Magnesium [Mass/Vol] 1.9 mg/dL Normal 1.8-2.4 [facility] Comment on above: Performed By: #### P HOS, MG ####[facility] Eevtfbvlyv[address] [place], [place] [address]Dr. Farhat Leal PHOSPHORUSon 05-08-2022 Phosphate [Mass/Vol] 4.5 mg/dL Normal 2.6-4.7 [facility] Comment on above: Performed By: #### P HOS, MG ####[facility] Bfogkubnux1498 [place] [address]Dr. Farhat Leal PROF 14(COMP METB)on 023 Albumin [Mass/Vol] 2.9 g/dL Critically low 3.4-5.0 [facility] Comment on above: Performed By: #### C MP ####[facility] Hucfzhqqlg4773 [place] [address]Dr. Farhat Leal Albumin/Globulin [Mass ratio] 0.9 {ratio} Normal [facility] Comment on above: Performed By: #### C MP ####[facility] Spvlhaghrx3182 [place] [address]Dr. Farhat Leal ALP [Catalytic activity/Vol] 70 U/L Normal 46-116 [facility] Comment on above: Performed By: #### C MP ####[facility] Efsunrewpb0637 [place], [place] [address]Yb. Farhat Leal ALT [Catalytic activity/Vol] 13 U/L Critically low 16-63 [facility] Comment on above: Performed By: #### C MP ####[facility] Wntpbnjbgc1035 [place], [place] [address]Jb. Farhat Leal Anion gap [Moles/Vol] 14.6 mmol/L Normal Th e [facility] Comment on above: Performed By: #### C MP ####[facility] Nukswptrbc7334 [place] [phone]. Farhat Leal AST [Catalytic activity/Vol] 17 U/L Normal 15-37 [facility] Comment on above: Performed By: #### C MP ####[facility] Ifqnushrms7361 [place] [phone]. Farhat Leal Bilirubin [Mass/Vol] 0.8 mg/dL Normal 0.2-1.0 [facility] Comment on above: Performed By: #### C MP ####[facility] Csfhthhylh9933 [place] [phone]. Farhat Leal Calcium [Mass/Vol] 8.9 mg/dL Normal 8.5-10.1 [facility] Comment on above: Performed By: #### C MP ####[facility] Nbsgccdmab6824 [place] [phone]. Farhat Leal Chloride [Moles/Vol] 102 mmol/L Normal 98-107 [facility] Comment on above: Performed By: #### C MP ####[facility] Lsktqatbym3173 [place] [phone]. Farhat Leal CO2 [Moles/Vol] 22.9 mmol/L Normal 21.0-32.0 [facility] Comment on above: Performed By: #### C MP ####[facility] Tchplxmxxz5033 [place] [phone]. Farhat Leal Creatinine [Mass/Vol] 1.20 mg/dL Normal 0.70-1.30 [facility] Comment on above: Performed By: #### C MP ####[facility] Vsvytbhamh2031 [place] [phone]. Farhat Leal EGFR-AF GEORGIAN >60 Normal >=60 [facility] Comment on above: Performed By: #### C MP ####[facility] Swnedufvxj6962 [place] [address]Dr. Farhat Leal EGFR-NON AF GEORGIAN 59 mL/min/1.73m2 Critically low >=60 [facility] Comment on above: Performed By: #### C MP ####[facility] Abqsyulslw2815 [place] [address]Dr. Farhat Leal Globulin (S) [Mass/Vol] 3.1 g/dL Normal [facility] Comment on above: Performed By: #### C MP ####[facility] Ogdunjcnot932[address] [place], [place] [address]Dr. Farhat Leal Glucose [Mass/Vol] 447 mg/dL Critically high 74-106 [facility] Comment on above: Performed By: #### C MP ####[facility] Eeewsandlv608[address] [place], [place] [address]Dr. Farhat Leal Potassium [Moles/Vol] 4.5 mmol/L Normal 3.5-5.1 [facility] Comment on above: Performed By: #### C MP ####[facility] Ggetonvncy2944[address] [place], [place] [address]Dr. Farhat Leal Protein [Mass/Vol] 6.0 g/dL Critically low 6.4-8.2 Th [facility] Comment on above: Performed By: #### C MP ####[facility] Wadidckuwt5447[address] [place], [place] [address]Dr. Farhat Leal Sodium [Moles/Vol] 135 mmol/L Critically low 136-145 Th [facility] Comment on above: Performed By: #### C MP ####[facility] Nvxkgnvwmm526[address] [place], [place] [address]Dr. Farhat Leal Urea nitrogen [Mass/Vol] 52.0 mg/dL Critically high 7.0-18.0 [facility] Comment on above: Performed By: #### C MP ####[facility] Aexiyzcapr2723[address] [place], [place] [address]Dr. Farhat Leal Urea nitrogen/Creatinine [Mass ratio] 43.3 mg/mg Normal [facility] Comment on above: Performed By: #### C MP ####[facility] Acafpjycrx600[address] [place], [place] [address]DrSkylar Leal PROTIMEon 05-06-2022 INR Coag (PPP) [Relative time] 2.25 {INR} Normal [facility] Comment on above: Performed By: #### P T ####[facility] Lyidnicvux909[address] [place], [place] [address]DrSkylar Leal INR GUIDELINES SEE BELOW Normal [facility] Comment on above: Result Comment: MALINA RED INR: 2.0 - 3.0 CONDITIONS NOT LISTED BELOW 2.5 - 3.5 FOR PROSTHETIC HEART VALVE REPLACEMENT 2.5 - 3.5 RECURRENT THROMBOSIS Performed By: #### P T ####[facility] Chxzkcmqtr97[address] [place], [place] [address]DrSkylar Leal PT Coag (PPP) [Time] 22.8 s Critically high 9.0-11.6 [facility] Comment on above: Performed By: #### P T ####[facility] Oadgyudsom604[address] [place], [place] [address]DrSkylar Leal FK506 (TACROLIMUS) WHOLE BLO ODon 05-04-2022 Tacrolimus (FK506), Blood 10.4 ng/mL Normal 2.0-20.0 [facility] Comment on above: Result Comment: Trou gh (immediately following transplant) 15.0 . Trough (steady state, 2 weeks or more after transplant): 3.0 - 8.0 . Performed by LC-MS/MS technology. Performed By: #### F K506T ####[facility] Tzeteyjhau[address] [place], [place] [address]DrSkylar Leal CBC AUTO DIFFon 05-01-2022 BASO # 0.1 103/ul Normal 0.0-0.1 [facility] Comment on above: Performed By: #### C BC ####[facility] Rviicmajho[address] [place], [place] [address]DrSkylar Leal Basophils/100 WBC (Bld) 0.7 % Normal 0.2-2.0 [facility] Comment on above: Performed By: #### C BC ####[facility] Nhajqnbvqo[address] [place], [place] [address]Dr. Farhat Leal EO # 0.2 103/ul Normal 0.0-0.7 [facility] Comment on above: Performed By: #### C BC ####[facility] Opeitjzhys155[address] [place], [place] [address]Dr. Farhat Leal Eosinophils/100 WBC (Bld) 3.2 % Normal 0.9-7.0 [facility] Comment on above: Performed By: #### C BC ####[facility] Zkfgoumfmq[address] [place], [place] [address]Dr. Farhat Leal Erythrocyte distribution width (RBC) [Ratio] 16.4 % Critically high 11.0-15.0 [facility] Comment on above: Performed By: #### C BC ####[facility] Bswgmessxq8211[address] [place], [place] [address]Dr. Farhat Leal Hematocrit (Bld) [Volume fraction] 35.1 % Critically low 42.0-54.0 [facility] Comment on above: Performed By: #### C BC ####[facility] Kuryyypqiq1816[address] [place], [place] [address]Dr. Farhat Leal Hemoglobin (Bld) [Mass/Vol] 11.6 g/dL Critically low 14.0-18.0 [facility] Comment on above: Performed By: #### C BC ####[facility] Gxrlwyspsb45[address] [place], [place] [address]Dr. Farhat Leal IG # 0.03 10e3/ul Normal 0.00-0.03 [facility] Comment on above: Performed By: #### C BC ####[facility] Oafvpaduwm7337[address] [place], [place] [address]Dr. Farhat Leal IG % 0.4 % Normal 0.0-0.5 [facility] Comment on above: Performed By: #### C BC ####[facility] Tonwbqsomv5038[address] [place], [place] [address]DrSkylar Leal LYMPH # 2.4 103/ul Normal 1.2-3.8 [facility] Comment on above: Performed By: #### C BC ####[facility] Kfe[address]royr[address] [place] [address]DrSkylar Leal Lymphocytes/100 WBC (Bld) 35.1 % Normal 20.5-60.0 [facility] Comment on above: Performed By: #### C BC ####[facility] Lvgsacwdtq7135 [place] [address]DrSkylar Leal MANUAL DIFF REQ NO Normal [facility] Comment on above: Performed By: #### C BC ####[facility] Rottkdntgs0117 [place] [address]DrSkylar Leal MCH (RBC) [Entitic mass] 29.4 pg Normal 25.9-34.0 [facility] Comment on above: Performed By: #### C BC ####[facility] Kgubhglhaa24[address] [place], [place] [address]DrSkylar Leal MCHC (RBC) [Mass/Vol] 33.0 g/dL Normal 29.9-35.2 [facility] Comment on above: Performed By: #### C BC ####[facility] Oornrcwlzi0510[address] [place], [place] [address]DrSkylar Leal MCV (RBC) [Entitic vol] 88.9 fL Normal 80.0-94.0 [facility] Comment on above: Performed By: #### C BC ####[facility] Qyztpjkroq[address] [place], [place] [address]DrSkylar Leal MONO # 0.7 103/ul Normal 0.3-0.8 [facility] Comment on above: Performed By: #### C BC ####[facility] Axisglswqy9260[address] [place], [place] [address]DrSkylar Leal Monocytes/100 WBC (Bld) 9.6 % Normal 1.7-12.0 [facility] Comment on above: Performed By: #### C BC ####[facility] Fubszmqwbz7287[address] [place], [place] [address]DrSkylar Leal NEUT # 3.5 103/ul Normal 1.4-6.5 [facility] Comment on above: Performed By: #### C BC ####[facility] Fjhlsflqsd6621 [place] [address]DrSkylar Leal Neutrophils/100 WBC (Bld) 51.0 % Normal 43.0-75.0 [facility] Comment on above: Performed By: #### C BC ####[facility] Fezglthxrf2868 [place] [address]DrSkylar Leal Platelet mean volume (Bld) [Entitic vol] 10.3 fL Normal 9.5-13.5 [facility] Comment on above: Performed By: #### C BC ####[facility] Scdgciqzip7[address] [place], [place] [address]DrSkylar Lael PLT 184 103/ul Normal 150-450 [facility] Comment on above: Performed By: #### C BC ####[facility] Acrqubmqjt9518[address] [place], [place] [address]DrSkylar Leal RBC 3.95 106/ul Critically low 4.70-6.10 [facility] Comment on above: Performed By: #### C BC ####[facility] Oadpldgkiz5155[address] [place], [place] [address]DrSkylar Leal WBC 7.0 103/ul Normal 4.0-11.0 [facility] Comment on above: Performed By: #### C BC ####[facility] Rxphqberyg2670[address] [place], [place] [address]Dr. Farhat Leal PROF 14(COMP METB)on 023 Albumin [Mass/Vol] 2.6 g/dL Critically low 3.4-5.0 [facility] Comment on above: Performed By: #### C MP ####[facility] Sigzjbqufk796[address] [place], [place] [address]DrSkylar Leal Albumin/Globulin [Mass ratio] 0.9 {ratio} Normal [facility] Comment on above: Performed By: #### C MP ####[facility] Ikmgsrfdtb4305[address] [place], [place] [address]DrSkylar Leal ALP [Catalytic activity/Vol] 53 U/L Normal 46-116 [facility] Comment on above: Performed By: #### C MP ####[facility] Qucuyhzsxi6[address] [place] [address]Dr. Farhat Elvis ALT [Catalytic activity/Vol] 17 U/L Normal 16-63 [facility] Comment on above: Performed By: #### C MP ####[facility] Cvlzbmyugh518[address] [place], [place] [address]Dr. Farhat Elvis Anion gap [Moles/Vol] 10.0 mmol/L Normal [facility] Comment on above: Performed By: #### C MP ####[facility] Zfvgsfbjoe758[address] [place], [place] [address]Dr. Farhat Elvis AST [Catalytic activity/Vol] 19 U/L Normal 15-37 [facility] Comment on above: Performed By: #### C MP ####[facility] Zfkoihtugr4714[address] [place], [place] [address]Dr. Farhat Elvis Bilirubin [Mass/Vol] 0.5 mg/dL Normal 0.2-1.0 [facility] Comment on above: Performed By: #### C MP ####[facility] Olvixmggzm315[address] [place], [place] [address]Dr. Farhat Elvis Calcium [Mass/Vol] 8.4 mg/dL Critically low 8.5-10.1 [facility] Comment on above: Performed By: #### C MP ####[facility] Cccjyfmwhe2709[address] [place], [place] [address]Dr. Madelynlorri Leal Chloride [Moles/Vol] 108 mmol/L Critically high 98-107 [facility] Comment on above: Performed By: #### C MP ####[facility] Xgzxuhhcrj369[address] [place], [place] [address]Dr. Farhat Leal CO2 [Moles/Vol] 26.9 mmol/L Normal 21.0-32.0 [facility] Comment on above: Performed By: #### C MP ####[facility] Xwmswuevtb4[address] [place], [place] [address]Dr. Madelynlorri Leal Creatinine [Mass/Vol] 1.20 mg/dL Normal 0.70-1.30 [facility] Comment on above: Performed By: #### C MP ####[facility] Pwe[address]icof[address] [place] [address]Dr. Farhat Leal EGFR-AF GEORGIAN >60 Normal >=60 [facility] Comment on above: Performed By: #### C MP ####[facility] Kyhsftiece[address] [place] [id number]. Farhat Elvis EGFR-NON AF GEORGIAN 59 mL/min/1.73m2 Critically low >=60 [facility] Comment on above: Performed By: #### C MP ####[facility] Knqvfiavkk5062 [place] [address]Dr. Farhat Elvis Globulin (S) [Mass/Vol] 3.0 g/dL Normal [facility] Comment on above: Performed By: #### C MP ####[facility] Hffowciiau6143 [place] [address]Dr. Farhat Elvis Glucose [Mass/Vol] 213 mg/dL Critically high 74-[address] [facility] Comment on above: Performed By: #### C MP ####[facility] Uzbnhaaryj0869[address] [place], [place] [address]Dr. Farhat Elvis Potassium [Moles/Vol] 3.9 mmol/L Normal 3.5-5.1 [facility] Comment on above: Performed By: #### C MP ####[facility] Syhjsyhpmb2887 [place] [address]Dr. Farhat Elvis Protein [Mass/Vol] 5.6 g/dL Critically low 6.4-8.2 [facility] Comment on above: Performed By: #### C MP ####[facility] Aogxzuktfp0178 [place] [address]Dr. Farhat Leal Sodium [Moles/Vol] 141 mmol/L Normal 136-145 [facility] Comment on above: Performed By: #### C MP ####[facility] Vvbvlttjct9784 [place] [address]Dr. Farhat Elvis Urea nitrogen [Mass/Vol] 61.0 mg/dL Critically high 7.0-18.0 [facility] Comment on above: Performed By: #### C MP ####[facility] Qmqtmdskcg6[address] [place], [place] [address]Dr. Farhat Leal Urea nitrogen/Creatinine [Mass ratio] 50.8 mg/mg Normal [facility] Comment on above: Performed By: #### C MP ####[facility] Qdjlnclyca009[address] [place], [place] [address]Dr. Farhat Leal FK506 (TACROLIMUS) WHOLE BLO ODon 04-27-2022 Tacrolimus (FK506), Blood 16.5 ng/mL Normal 2.0-20.0 [facility] Comment on above: Result Comment: Trou gh (immediately following transplant) 15.0 . Trough (steady state, 2 weeks or more after transplant): 3.0 - 8.0 . Performed by LC-MS/MS technology. Performed By: #### F K506T ####[facility] Fdsxqmfmyn534[address] [place], [place] [address]Dr. Farhat Leal CBC AUTO DIFFon 04-24-2022 BASO # 0.0 103/ul Normal 0.0-0.1 [facility] Comment on above: Performed By: #### C BC ####[facility] Ktskwhiomf1838[address] [place], [place] [address]Dr. Farhat Leal Basophils/100 WBC (Bld) 0.5 % Normal 0.2-2.0 [facility] Comment on above: Performed By: #### C BC ####[facility] Opdhgvxmbf8680[address] [place], [place] [address]Dr. Farhat Leal EO # 0.2 103/ul Normal 0.0-0.7 [facility] Comment on above: Performed By: #### C BC ####[facility] Impxoafpsg320[address] [place], [place] [address]Dr. Farhat Leal Eosinophils/100 WBC (Bld) 3.1 % Normal 0.9-7.0 [facility] Comment on above: Performed By: #### C BC ####[facility] Wwssheziqt523[address] [place], [place] [address]Dr. Farhat Leal Erythrocyte distribution width (RBC) [Ratio] 16.3 % Critically high 11.0-15.0 [facility] Comment on above: Performed By: #### C BC ####[facility] Plfsjgmnxv6378 [place] [address]Dr. Farhat Leal Hematocrit (Bld) [Volume fraction] 34.0 % Critically low 42.0-54.0 [facility] Comment on above: Performed By: #### C BC ####[facility] Plfdlbgdyg597[address] [place], [place] [address]Dr. Farhat Leal Hemoglobin (Bld) [Mass/Vol] 11.6 g/dL Critically low 14.0-18.0 [facility] Comment on above: Performed By: #### C BC ####[facility] Ejqkpwatvq0097[address] [place], [place] [address]Dr. Farhat Leal IG # 0.02 10e3/ul Normal 0.00-0.03 [facility] Comment on above: Performed By: #### C BC ####[facility] Jjvjpeodpw789[address] [place], [place] [address]Dr. Madelynlorri Leal IG % 0.4 % Normal 0.0-0.5 [facility] Comment on above: Performed By: #### C BC ####[facility] Rnfpohociy4349[address] [place], [place] [address]DrSkylar Farhat Leal LYMPH # 2.2 103/ul Normal 1.2-3.8 [facility] Comment on above: Performed By: #### C BC ####[facility] Lghwbgvemo[address] [place], [place] [address]DrSkylar Madelynlorri Leal Lymphocytes/100 WBC (Bld) 38.8 % Normal 20.5-60.0 [facility] Comment on above: Performed By: #### C BC ####[facility] Hwkrcocvmm3860[address] [place], [place] [address]DrSkylar Madelynlorri Leal MANUAL DIFF REQ NO Normal [facility] Comment on above: Performed By: #### C BC ####[facility] Nzccvjgzzn[address] [place], [place] [address]DrSkylar Leal MCH (RBC) [Entitic mass] 30.1 pg Normal 25.9-34.0 [facility] Comment on above: Performed By: #### C BC ####[facility] Inpwmejted0519 [place] [address]DrSkylar Leal MCHC (RBC) [Mass/Vol] 34.1 g/dL Normal 29.9-35.2 [facility] Comment on above: Performed By: #### C BC ####[facility] Mxfmxacwdk9377[address] [place], [place] [address]DrSkylar Leal MCV (RBC) [Entitic vol] 88.1 fL Normal 80.0-94.0 [facility] Comment on above: Performed By: #### C BC ####[facility] Qaypliuyqj5[address] [place], [place] [address]DrSkylar Leal MONO # 0.6 103/ul Normal 0.3-0.8 [facility] Comment on above: Performed By: #### C BC ####[facility] Acgprizxcl433[address] [place], [place] [address]DrSkylar Leal Monocytes/100 WBC (Bld) 10.8 % Normal 1.7-12.0 [facility] Comment on above: Performed By: #### C BC ####[facility] Mefrwwhnvi476[address] [place], [place] [address]DrSkylar Leal NEUT # 2.6 103/ul Normal 1.4-6.5 [facility] Comment on above: Performed By: #### C BC ####[facility] Prvdcqbdzz4215[address] [place], [place] [address]DrSkylar Leal Neutrophils/100 WBC (Bld) 46.4 % Normal 43.0-75.0 [facility] Comment on above: Performed By: #### C BC ####[facility] Kpgfphrunq768[address] [place], [place] [address]DrSkylar Leal Platelet mean volume (Bld) [Entitic vol] 10.9 fL Normal 9.5-13.5 [facility] Comment on above: Performed By: #### C BC ####[facility] Ceqsclqzfn4[address] [place], [place] [address]DrSkylar Leal PLT 159 103/ul Normal 150-450 [facility] Comment on above: Performed By: #### C BC ####[facility] Emsofvftkx1335 [place] [address]Dr. Farhat Leal RBC 3.86 106/ul Critically low 4.70-6.10 [facility] Comment on above: Performed By: #### C BC ####[facility] Cemvcnglzs6387 [place] [address]Dr. Farhat Leal WBC 5.6 103/ul Normal 4.0-11.0 [facility] Comment on above: Performed By: #### C BC ####[facility] Mmxdfxupuy10[address] [place] [address]Dr. Farhat Leal PROTIMEon 04-24-2022 INR Coag (PPP) [Relative time] 3.23 {INR} Normal [facility] Comment on above: Performed By: #### P T ####[facility] Ufyhjaaoav6[address] [place], [place] [address]Dr. Farhat Leal INR GUIDELINES SEE BELOW Normal [facility] Comment on above: Result Comment: MALINA RED INR: 2.0 - 3.0 CONDITIONS NOT LISTED BELOW 2.5 - 3.5 FOR PROSTHETIC HEART VALVE REPLACEMENT 2.5 - 3.5 RECURRENT THROMBOSIS Performed By: #### P T ####[facility] Jexupkoixt75[address] [place] [address]Dr. Farhat Leal PT Coag (PPP) [Time] 32.0 s Critically high 9.0-11.6 [facility] Comment on above: Performed By: #### P T ####[facility] Hkhbohqwtm7[address] [place] [address]Dr. Farhat Leal FK506 (TACROLIMUS) WHOLE BLO ODon 04-20-2022 Tacrolimus (FK506), Blood 13.9 ng/mL Normal 2.0-20.0 [facility] Comment on above: Result Comment: Trou gh (immediately following transplant) 15.0 . Trough (steady state, 2 weeks or more after transplant): 3.0 - 8.0 . Performed by LC-MS/MS technology. Performed By: #### F K506T ####[facility] Ihlyjhbtxe[address] [place] [id number]. Farhat Leal CBC AUTO DIFFon 04-17-2022 BASO # 0.0 103/ul Normal 0.0-0.1 [facility] Comment on above: Performed By: #### C BC ####[facility] Xukytehgiu0625 [place] [address]Dr. Farhat Leal Basophils/100 WBC (Bld) 0.4 % Normal 0.2-2.0 [facility] Comment on above: Performed By: #### C BC ####[facility] Poftxmnytd7183 [place] [address]Dr. Farhat Leal EO # 0.2 103/ul Normal 0.0-0.7 [facility] Comment on above: Performed By: #### C BC ####[facility] Wlaoohqwem8580 [place] [address]Dr. Farhat Elvis Eosinophils/100 WBC (Bld) 2.8 % Normal 0.9-7.0 [facility] Comment on above: Performed By: #### C BC ####[facility] Fyycbdaaii327[address] [place], [place] [address]Dr. Farhat Leal Erythrocyte distribution width (RBC) [Ratio] 16.1 % Critically high 11.0-15.0 [facility] Comment on above: Performed By: #### C BC ####[facility] Ojgwarjbjf334[address] [place], [place] [address]Dr. Farhat Leal Hematocrit (Bld) [Volume fraction] 35.7 % Critically low 42.0-54.0 [facility] Comment on above: Performed By: #### C BC ####[facility] Wrqkihasmv8624[address] [place], [place] [address]Dr. Farhat Leal Hemoglobin (Bld) [Mass/Vol] 12.2 g/dL Critically low 14.0-18.0 [facility] Comment on above: Performed By: #### C BC ####[facility] Jucvxrtaud49[address] [place], [place] [address]Dr. Madelynlorri Leal IG # 0.03 10e3/ul Normal 0.00-0.03 [facility] Comment on above: Performed By: #### C BC ####[facility] Cedgmkzcsd9[address] [place] [address]Dr. Farhat Leal IG % 0.4 % Normal 0.0-0.5 [facility] Comment on above: Performed By: #### C BC ####[facility] Ohjbtkkgde1025 [place] [address]Dr. Farhat Leal LYMPH # 2.4 103/ul Normal 1.2-3.8 [facility] Comment on above: Performed By: #### C BC ####[facility] Ismsfrprlk2780 [place] [address]Dr. Farhat Leal Lymphocytes/100 WBC (Bld) 36.1 % Normal 20.5-60.0 [facility] Comment on above: Performed By: #### C BC ####[facility] Bnqoiglzvo[address] [place], [place] [address]DrSkylar Leal MANUAL DIFF REQ NO Normal [facility] Comment on above: Performed By: #### C BC ####[facility] Hbrlupzljr6285 [place] [phone]. Farhat Leal MCH (RBC) [Entitic mass] 30.3 pg Normal 25.9-34.0 [facility] Comment on above: Performed By: #### C BC ####[facility] Fhckamikqk2279 [place] [phone]. Farhat Leal MCHC (RBC) [Mass/Vol] 34.2 g/dL Normal 29.9-35.2 [facility] Comment on above: Performed By: #### C BC ####[facility] Wznicpkned[address] [place], [place] [address]DrSkylar Leal MCV (RBC) [Entitic vol] 88.6 fL Normal 80.0-94.0 [facility] Comment on above: Performed By: #### C BC ####[facility] Zqumqulmcv[address] [place], [place] [address]DrSkylar Leal MONO # 0.7 103/ul Normal 0.3-0.8 [facility] Comment on above: Performed By: #### C BC ####[facility] Ooskrhzjhm7692 [place] [phone]. Farhat Leal Monocytes/100 WBC (Bld) 10.1 % Normal 1.7-12.0 [facility] Comment on above: Performed By: #### C BC ####[facility] Ltgfbdoenn0893 [place] [phone]. Farhat Leal NEUT # 3.4 103/ul Normal 1.4-6.5 [facility] Comment on above: Performed By: #### C BC ####[facility] Qyehewyzkh7286 [place] [phone]. Farhat Elvis Neutrophils/100 WBC (Bld) 50.2 % Normal 43.0-75.0 [facility] Comment on above: Performed By: #### C BC ####[facility] Kpgygfcypb5066 [place] [phone]. Farhat Elvis Platelet mean volume (Bld) [Entitic vol] 11.8 fL Normal 9.5-13.5 [facility] Comment on above: Performed By: #### C BC ####[facility] Avcyntfaar8353 [place] [phone]. Farhat Elvis PLT 193 103/ul Normal 150-450 [facility] Comment on above: Performed By: #### C BC ####[facility] Jnptvvwemw9587 [place] [phone]. Farhat Elvis RBC 4.03 106/ul Critically low 4.70-6.10 [facility] Comment on above: Performed By: #### C BC ####[facility] Pzlbvriaek6234 [place] [phone]. Farhat Leal WBC 6.8 103/ul Normal 4.0-11.0 [facility] Comment on above: Performed By: #### C BC ####[facility] Evbflamfnc7198 [place] [phone] Leal PROF 14(COMP METB)on 023 Albumin [Mass/Vol] 2.9 g/dL Critically low 3.4-5.0 [facility] Comment on above: Performed By: #### C MP ####[facility] Rimahejbik3561 [place] [address]Dr. Farhat Elvis Albumin/Globulin [Mass ratio] 0.9 {ratio} Normal [facility] Comment on above: Performed By: #### C MP ####[facility] Hpuleqkanu039[address] [place] [address]Dr. Farhat Elvis ALP [Catalytic activity/Vol] 67 U/L Normal 46-116 [facility] Comment on above: Performed By: #### C MP ####[facility] Xqygrtysyc[address] [place], [place] [address]Dr. Farhat Elvis ALT [Catalytic activity/Vol] 15 U/L Critically low 16-63 [facility] Comment on above: Performed By: #### C MP ####[facility] Lcybzgwyew[address] [place], [place] [address]Dr. Madelynlorri Elvis Anion gap [Moles/Vol] 10.8 mmol/L Normal [facility] Comment on above: Performed By: #### C MP ####[facility] Boudpfhphf[address] [place], [place] [address]Dr. Farhat Elvis AST [Catalytic activity/Vol] 23 U/L Normal 15-37 [facility] Comment on above: Performed By: #### C MP ####[facility] Qyxvspekv[address] [place], [place] [address]Dr. Farhat Leal Bilirubin [Mass/Vol] 0.6 mg/dL Normal 0.2-1.0 [facility] Comment on above: Performed By: #### C MP ####[facility] Gdqxu[address]imxd[address] [place] [address]Dr. Farhat Leal Calcium [Mass/Vol] 8.7 mg/dL Normal 8.5-10.1 [facility] Comment on above: Performed By: #### C MP ####[facility] Tcewlzcgjw[address] [place], [place] [address]Dr. Farhat Leal Chloride [Moles/Vol] 105 mmol/L Normal 98-107 [facility] Comment on above: Performed By: #### C MP ####[facility] [address]tprwf[address] [place] [phone]. Farhat Leal CO2 [Moles/Vol] 29.5 mmol/L Normal 21.0-32.0 [facility] Comment on above: Performed By: #### C MP ####[facility] Brhvyhtccv[address] [place] [phone]. Farhat Leal Creatinine [Mass/Vol] 1.37 mg/dL Critically high 0.70-1.30 [facility] Comment on above: Performed By: #### C MP ####[facility] Xyqdgyehmf[address] [place] [phone]. Farhat Leal EGFR-AF GEORGIAN >60 Normal >=60 [facility] Comment on above: Performed By: #### C MP ####[facility] Zh[address]leurbk[address] [place] [address]Dr. Farhat Elvis EGFR-NON AF GEORGIAN 50 mL/min/1.73m2 Critically low >=60 [facility] Comment on above: Performed By: #### C MP ####[facility] Kkptglmapx[address] [place] [address]Dr. Farhat Leal Globulin (S) [Mass/Vol] 3.1 g/dL Normal [facility] Comment on above: Performed By: #### C MP ####[facility] Esf[address]ncbj[address] [place] [address]Dr. Farhat Leal Glucose [Mass/Vol] 203 mg/dL Critically high 74-[address] [facility] Comment on above: Performed By: #### C MP ####[facility] Jquxuiqbia[address] [place] [phone]. Farhat Leal Potassium [Moles/Vol] 4.3 mmol/L Normal 3.5-5.1 [facility] Comment on above: Performed By: #### C MP ####[facility] Htyxbubwdr[address] [place] [address]Dr. Farhat Leal Protein [Mass/Vol] 6.0 g/dL Critically low 6.4-8.2 [facility] Comment on above: Performed By: #### C MP ####[facility] Gswwadvhbj8[address] [place] [address]Dr. Farhat Leal Sodium [Moles/Vol] 141 mmol/L Normal 136-145 [facility] Comment on above: Performed By: #### C MP ####[facility] Rzbgoqpyzg[address] [place] [phone]. Farhat Leal Urea nitrogen [Mass/Vol] 65.0 mg/dL Critically high 7.0-18.0 [facility] Comment on above: Performed By: #### C MP ####[facility] Ekkdzcvyjg[address] [place] [address]Dr. Farhat Leal Urea nitrogen/Creatinine [Mass ratio] 47.4 mg/mg Normal [facility] Comment on above: Performed By: #### C MP ####[facility] Dyglnzttkr[address] [place] [address]Dr. Farhat Leal PROTIMEon 04-15-2022 INR Coag (PPP) [Relative time] 3.88 {INR} Normal [facility] Comment on above: Performed By: #### P T ####[facility] Yfipipntwq[address] [place] [address]Dr. Farhat Leal INR GUIDELINES SEE BELOW Normal [facility] Comment on above: Result Comment: MALINA RED INR: 2.0 - 3.0 CONDITIONS NOT LISTED BELOW 2.5 - 3.5 FOR PROSTHETIC HEART VALVE REPLACEMENT 2.5 - 3.5 RECURRENT THROMBOSIS Performed By: #### P T ####[facility] Wklxwsgtfl[address] [place], [place] [address]Dr. Farhat Leal PT Coag (PPP) [Time] 38.1 s Critically high 9.0-11.6 [facility] Comment on above: Performed By: #### P T ####[facility] Smgwtkwhpg[address] [place], [place] [address]Dr. Farhat Leal Glucose Glucometer (BldC) [M ass/Vol]Ordered By: Sadia Aguilar on 04-14-2022 Glucose [Mass/Vol] 162 mg/dL [facility] Comment on above: Random Glucose Refer ence Range is dependent on time and content of last meal. Glucose of more than 200 mg/dL in a nonstressed, ambulatory subject supports the diagnosis of Diabetes Mellitus. Glucose Poct Glucometerson 0 04-14-2022 Commemt1 Glu2: Cleaned Meter Normal [facility] Comment on above: Result Comment: PERF ORMED BY: [facility] [place] [address] PATHOLOGIST PALLIATIVE CARE PHYSICIAN JOSE F ELLIOTT M.D. Performed By: #### G LULS #### Point of Care testing , Glucose [Mass/Vol] 162 mg/dL Normal [facility] Comment on above: Result Comment: [place] om Glucose Reference Range is dependent on time and content of last meal. Glucose of more than 200 mg/dL in a nonstressed, ambulatory subject supports the diagnosis of Diabetes Mellitus. Performed By: #### G LULS #### Point of Care testing , No Panel InformationOrdered By: Sadia Aguilar on 04-14-2022 Bedside Glucose Comment Glu2: cleaned meter [facility] MAGNESIUMon 04-13-2022 Magnesium [Mass/Vol] 1.7 mg/dL Critically low 1.8-2.4 [facility] Comment on above: Performed By: #### M HENRI Manzo ####[facility] Vinburiiyu[address] [place] [address]Dr. Farhat Leal PHOSPHORUSon 04-13-2022 Phosphate [Mass/Vol] 4.8 mg/dL Critically high 2.6-4.7 [facility] Comment on above: Performed By: #### M HENRI Manzo ####[facility] Hbkisnieuz7376 [place] [address]Dr. Farhat Leal PROTIMEon 04-13-2022 INR Coag (PPP) [Relative time] 3.16 {INR} Normal [facility] Comment on above: Performed By: #### P T ####[facility] Bgbxxzcwfa[address] [place] [address]Dr. Farhat Leal INR GUIDELINES SEE BELOW Normal [facility] Comment on above: Result Comment: MALINA RED INR: 2.0 - 3.0 CONDITIONS NOT LISTED BELOW 2.5 - 3.5 FOR PROSTHETIC HEART VALVE REPLACEMENT 2.5 - 3.5 RECURRENT THROMBOSIS Performed By: #### P T ####[facility] Ojxadkrqte[address] [place] [address]Dr. Farhat Leal PT Coag (PPP) [Time] 31.4 s Critically high 9.0-11.6 [facility] Comment on above: Performed By: #### P T ####[facility] Lhqtkvrnkz64[address] [place] [address]Dr. Farhat Leal MAGNESIUMon 03-11-2022 Magnesium [Mass/Vol] 1.6 mg/dL Critically low 1.8-2.4 [facility] Comment on above: Performed By: #### M Anais, HENRI ####[facility] Btaenmebif[address] [place] [address]Dr. Farhat Leal PHOSPHORUSon 03-11-2022 Phosphate [Mass/Vol] 5.3 mg/dL Critically high 2.6-4.7 [facility] Comment on above: Performed By: #### M Anais, HENRI ####[facility] Ffvsxklklc[address] [place], [place] [address]Dr. Farhat Lael CNOVon 02-26-2022 CNOV Office Visit (HONEY ) ALEX ALMONTE ([id number]) 1945 M TRN Date Time Provider Department 02/26/22 3:00 PM HINA PETERSON During your visit today, we recorded the following information about you: Temperature Pulse Blood pressure 96.6 degrees 75/minute 88/75 Hina Peterson MD, MD 02/26/2022 4:31 PM Signed [facility] DEPARTMENT OF VASCULAR SURGERY OUTPATIENT VISIT DATE [...] of inupiat artery of extremity with ulceration (FORMERLY [place] [...] by mouth daily with lunch. [employer] [place] with lunch aspirin, enteric coated (ASPIRIN, ENTERIC COATED) 81 mg EC tablet Take 1 tablet by (more content not included)... Normal [place] Walter PROTIMEon 02-25-2022 INR Coag (PPP) [Relative time] 1.31 {INR} Normal [facility] Comment on above: Performed By: #### P T ####[facility] Fqjbjadtsd8[address] [place] [address]DrSkylar Leal INR GUIDELINES SEE BELOW Normal [facility] Comment on above: Result Comment: MALINA RED INR: 2.0 - 3.0 CONDITIONS NOT LISTED BELOW 2.5 - 3.5 FOR PROSTHETIC HEART VALVE REPLACEMENT 2.5 - 3.5 RECURRENT THROMBOSIS Performed By: #### P T ####[facility] Lqlqsqjvfk8[address] [place] [address]DrSkylar Leal PT Coag (PPP) [Time] 13.7 s Critically high 9.0-11.6 [facility] Comment on above: Performed By: #### P T ####[facility] Nwoutktpws[address] [place] [address]DrSkylar Leal CNPNon 02-19-2022 CNPN Telephone (TXCTGL) ALEX ALMONTE ([id number]) 1945 M TRN Date Time Provider Department [...] by mouth daily with lunch. 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 Almonte would like to request a sooner appointment with Dr. Peterson than 04/13/2022. Contact Name (if not the patient) Alex's nurse Home and cell number(Ask for Alex's nurse) [phone] Diagnosis 4 mo f/u wound check Best [...] by mouth daily with lunch. 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 Normal [facility] CNOVon 02-05-2022 CNOV Office Visit (TXCTGL ) ALEX ALMONTE ([id number]) 1945 M TRN Date Time Provider Department 02/05/22 8:20 AM KIDNEY TXP CLINIC TXCTGL During your visit today, we recorded the following information about you: Temperature Pulse Blood pressure 96.7 degrees 79/minute 72/42 Asia Pike MD 02/05/2022 9:38 AM Signed [facility] Transplant Follow up Portions of this note were copied from the last encounter. Changes were made to appropriately reflect updated history and interval events, physical exam, data review, and medical decision making. Patient presents for renal tx follow up care - Hospital admission / discharge in November 2021 for osteomyelitis HPI: Alxe Almonte is a 76 yr old male, [...] Indra scale at [facility]: 166.2 lbs per patient. Bed sore on coccyx causing discomfort. Being changed regularly at [facility]- reported to be smaller around but still as deep. Patient not very up to date with medications. Patient brought paperwork from [facility] with all medications being received. Patient unsure if they have been drawing labs regularly. Last Tac from 01/19: 12.9 and K 5.9. In need of current labs. Lab orders will be sent with patient and follows as below: Kidney [facility] Pancreas Transplant Standing [facility] [address] [facility] [address] [place], [place] [address] February 05, 2022 Alex Almonte 1945 [id number] STANDARD TESTING: Diagnosis Codes: Z94.0 Kidney Transplant [...] AT YOUR LABORATORY FACILITY AND FAX TO [phone]. PLEASE CALL [phone]. Provider: Dr. Pike Current Outpatient Medications Medication [...] Take 237 (more content not included)... Normal [facility] PROTEIN CREATININE RATIOon 1 04-08-2021 Protein/Creatinine (U) [Mass ratio] 0.10 mg/mg <0.15 mg/mg [place] PROTIMEon 02-05-2022 INR Coag (PPP) [Relative time] 2.90 {INR} Normal [facility] Comment on above: Performed By: #### P T ####[facility] Lcoqrpiaqw[address] [place] [address]Dr. Farhat Leal INR GUIDELINES SEE BELOW Normal [facility] Comment on above: Result Comment: MALINA RED INR: 2.0 - 3.0 CONDITIONS NOT LISTED BELOW 2.5 - 3.5 FOR PROSTHETIC HEART VALVE REPLACEMENT 2.5 - 3.5 RECURRENT THROMBOSIS Performed By: #### P T ####[facility] Rsgnfscqlr53[address] [place] [id number]. Farhat Leal PT Coag (PPP) [Time] 29.2 s Critically high 9.0-11.6 [facility] Comment on above: Performed By: #### P T ####[facility] Farz[address]rjtx[address] [place] [address]Dr. Farhat Leal Prot/Creat Uron 02-05-2022 Protein/Creatinine (U) [Mass ratio] 0.10 mg/mg Normal <0.15 [facility] Comment on above: Order Comment: Speci men Type: URINE SPECIMENOrdering Facility: [facility] Address: [address] [place] [address] Result Comment: Adul t Proteinuria Categories: <0.15 [...] 890-2 ####[facility] [id number] [address] STATES OF [facility] Protein/Creatinine (U) [Mass ratio]on 02-05-2022 Creatinine (U) [Mass/Vol] 86.9 mg/dL 20.0 - 300.0 mg/dL [place] Protein (U) [Mass/Vol] 9 mg/dL 0 - 20 mg/dL [place] Creatinine (U) [Mass/Vol] 86.9 mg/dL Normal 20.0-300.0 [facility] Comment on above: Order Comment: Speci men Type: URINE SPECIMENOrdering Facility: [facility] Address: [address] Performed By: #### 2 890-2 ####[facility] LAB[facility]IA [id number] [place] [address] [place] Protein (U) [Mass/Vol] 9 mg/dL Normal 0-20 [facility] Comment on above: Order Comment: Speci men Type: URINE SPECIMENOrdering Facility: [facility] Address: [address] Performed By: #### 2 890-2 ####[facility] LAB[facility]IA [id number] [place] [address] [place] URINALYSIS, DIPSTICK ONLYon 02-05-2022 Bilirubin Ql (U) Negative Normal Negative [facility] Comment on above: Order Comment: Speci men Type: URINE SPECIMEN Ordering [facility]: [facility] Address: [address] Performed By: #### U A #### [facility] CLIA [id number] [facility] [place] [address] [place] Clarity (Unsp spec) Clear Normal Clear [facility] Comment on above: Order Comment: Speci men Type: URINE SPECIMEN Ordering Facility: [facility] Address: [address] Performed By: #### U A #### [facility] CLIA [id number] [address] [place] [address] [place] Color (U) Yellow Normal Yellow [facility] Comment on above: Order Comment: Speci men Type: URINE SPECIMEN Ordering Facility: [facility] Address: [address] Performed By: #### U A #### [facility] CLIA [id number] [address] [place] [address] [place] Glucose Test strip (U) [Mass/Vol] 3+ Abnormal Trace, Negative [facility] Comment on above: Order Comment: Speci men Type: URINE SPECIMEN Ordering Facility: [facility] Address: [address] [place] [address] Performed By: #### U A #### [facility] CLIA [id number] [address] [place] [address] [place] Hemoglobin Ql (U) Negative Normal Negative, Trace [facility] Comment on above: Order Comment: Speci men Type: URINE SPECIMEN Ordering Facility: [facility] Address: [address] [place] [address] Performed By: #### U A #### [facility] CLIA [id number] [place] Ketones Ql (U) Trace Normal Negative, Trace [facility] Comment on above: Order Comment: Speci men Type: URINE SPECIMEN Ordering Facility: [facility] Address: [address] [place] [address] Performed By: #### U A #### [facility] CLIA [id number] [address] [place] [address] [place] Leukocyte esterase Test strip Ql (U) Negative Normal Negative, 25 [place]/mL [facility] Comment on above: Order Comment: Speci men Type: URINE SPECIMEN Ordering Facility: [facility] Address: [address] [place] [address] Performed By: #### U A #### [facility] CLIA [id number] [address] [place] [address] [place] Nitrite Ql (U) Negative Normal Negative [facility] Comment on above: Order Comment: Speci men Type: URINE SPECIMEN Ordering Facility: [facility] Address: [address] [place] [address] Performed By: #### U A #### [facility] CLIA [id number] [facility] [place] [address] [place] pH (U) 5.5 [pH] Normal 5.0-8.0 [facility] Comment on above: Order Comment: Speci men Type: URINE SPECIMEN [facility] Address: [address] [place] [address] Performed By: #### U A #### [facility] CLIA [id number] [address] [place] [address] [place] Protein (U) [Mass/Vol] Negative Normal Trace , Negative [facility] Comment on above: Order Comment: Speci men Type: URINE SPECIMEN Order[facility]: [facility] Address: [address] [place] [address] Performed By: #### U A #### [facility] [place] [id number] [address] [place] [address] [place] Specific gravity (U) [Rel density] 1.014 Normal 1.005-1.030 [facility] Comment on above: Order Comment: Speci men Type: URINE SPECIMEN Order[facility]: [facility] Address: [address] [place] [address] Performed By: #### U A #### [facility] [place] [id number] [address] [place] [address] [place] Urobilinogen Ql (U) 1+ Abnormal Negative [facility] Comment on above: Order Comment: Speci men Type: URINE SPECIMEN Order[facility] Address: [address] [place] [address] Performed By: #### U A #### [facility] [place] [id number] [address] [place] [address] [place] Bilirubin Ql (U) Negative Negative [facility] Clarity (Unsp spec) Clear Clear [facility] Color (U) Yellow Yellow [place] Glucose Test strip (U) [Mass/Vol] 3+ Abnormal Trace, Negative [place] Hemoglobin Ql (U) Negative Negative, Trace [place] Ketones Ql (U) Trace Negative, Trace [place] Leukocyte esterase Test strip Ql (U) Negative Negative, 25 Loraine/mL [place] Nitrite Ql (U) Negative Negative [place] pH (U) 5.5 [pH] 5.0 - 8.0 [place] Protein (U) [Mass/Vol] Negative Trace , Negative [place] Specific gravity (U) [Rel density] 1.014 1.005 - 1.030 [place] Urobilinogen Ql (U) 1+ Abnormal Negative [facility] FK506 (TACROLIMUS) WHOLE BLO ODon 01-29-2022 Tacrolimus (FK506), Blood 11.1 ng/mL Normal 2.0-20.0 [facility] Comment on above: Result Comment: Trou gh (immediately following transplant) 15.0 . Trough (steady state, 2 weeks or more after transplant): 3.0 - 8.0 . Performed by LC-MS/MS technology. Performed By: #### F K506T ####[facility] Djgoaaepzz[address] [place], [place] [address]Dr. Farhat Leal PHOSPHORUSon 01-26-2022 Phosphate [Mass/Vol] 4.1 mg/dL Normal 2.6-4.7 [facility] Comment on above: Performed By: #### C CARA PHOS ####[facility] Whx[address]fwsfgt[address] [place], [place] [address]DrSkylar Leal PROF 14(COMP METB)on 022 Albumin [Mass/Vol] 2.1 g/dL Critically low 3.4-5.0 [facility] Comment on above: Performed By: #### C CARA, PHOS ####[facility] Ifcspnesmm4699[address] [place], [place] [address]Dr. Farhat Leal Albumin/Globulin [Mass ratio] 0.6 {ratio} Normal [facility] Comment on above: Performed By: #### C CARA, PHOS ####[facility] Folqvxajkr[address] [place], [place] [address]Dr. Farhat Leal ALP [Catalytic activity/Vol] 89 U/L Normal 46-116 [facility] Comment on above: Performed By: #### C ACRA, PHOS ####[facility] Ofjhfltmjh75[address] [place], [place] [address]Dr. Farhat Elvis ALT [Catalytic activity/Vol] 27 U/L Normal 16-63 [facility] Comment on above: Performed By: #### C CARA, PHOS ####[facility] Wjthpefsqe[address] [place], [place] [address]Dr. Madelynlorri Elvis Anion gap [Moles/Vol] 12.3 mmol/L Normal [facility] Comment on above: Performed By: #### C CARA, PHOS ####[facility] Vcnmgydace[address] [place], [place] [address]Dr. Farhat Leal AST [Catalytic activity/Vol] 53 U/L Critically high 15-37 [facility] Comment on above: Performed By: #### C CARA, PHOS ####[facility] Pxcqicucvc[address] [place], [place] [address]Dr. Farhat Leal Bilirubin [Mass/Vol] 0.6 mg/dL Normal 0.2-1.0 [facility] Comment on above: Performed By: #### C CARA, PHOS ####[facility] Maieafbvcw[address] [place], [place] [address]Dr. Farhat Leal Calcium [Mass/Vol] 8.0 mg/dL Critically low 8.5-10.1 [facility] Comment on above: Performed By: #### C CARA, PHOS ####[facility] Hvxotmplmx[address] [place], [place] [address]Dr. Farhat Leal Chloride [Moles/Vol] 97 mmol/L Critically low 98-107 [facility] Comment on above: Performed By: #### C CARA, PHOS ####[facility] Beirqzjngw[address] [place], [place] [address]Dr. Farhat Leal CO2 [Moles/Vol] 26.6 mmol/L Normal 21.0-32.0 [facility] Comment on above: Performed By: #### C CARA, PHOS ####[facility] X[address]jnjls[address] [place], [place] [address]Dr. Farhat Leal Creatinine [Mass/Vol] 1.03 mg/dL Normal 0.70-1.30 [facility] Comment on above: Performed By: #### C CARA, PHOS ####[facility] [address] [place] [address]Dr. Farhat Leal EGFR-AF GEORGIAN >60 Normal >=60 [facility] Comment on above: Performed By: #### C CARA, PHOS ####[facility] Qtqov[address]xlg[address] [place], [place] [address]Dr. Farhat Leal EGFR-NON AF GEORGIAN >60 Normal >=60 [facility] Comment on above: Performed By: #### C CARA, PHOS ####[facility] Dspzhqloal[address] [place], [place] [address]Dr. Farhat Leal Globulin (S) [Mass/Vol] 3.7 g/dL Normal [facility] Comment on above: Performed By: #### C CARA, PHOS ####[facility] Njesscerto[address] [place], [place] [address]Dr. Farhat Leal Glucose [Mass/Vol] 287 mg/dL Critically high 74-106 T [facility] Comment on above: Performed By: #### C CARA, PHOS ####[facility] Pyggkbndec01[address] [place], [place] [address]Dr. Farhat Leal Potassium [Moles/Vol] 3.9 mmol/L Normal 3.5-5.1 [facility] Comment on above: Performed By: #### C CARA, PHOS ####[facility] Qklgdowkhr87[address] [place], [place] [address]Dr. Farhat Leal Protein [Mass/Vol] 5.8 g/dL Critically low 6.4-8.2 Th [facility] Comment on above: Performed By: #### C CARA, PHOS ####[facility] Hefwnmqaog07[address] [place], [place] [address]Dr. Farhat Leal Sodium [Moles/Vol] 132 mmol/L Critically low 136-145 Th [facility] Comment on above: Performed By: #### C CARA, PHOS ####[facility] [address]oxlj[address] [place] [id number]. Farhat Leal Urea nitrogen [Mass/Vol] 23.0 mg/dL Critically high 7.0-18.0 [facility] Comment on above: Performed By: #### C HENRI MARROQUIN ####[facility] Hwcrkcfwvz1086 [place] [phone]. Farhat Leal Urea nitrogen/Creatinine [Mass ratio] 22.3 mg/mg Normal [facility] Comment on above: Performed By: #### C HENRI MARROQUIN ####[facility] Xbkkdjlasm99[address] [place] [phone]. Farhat Leal FK506 (TACROLIMUS) WHOLE BLO ODon 01-21-2022 Tacrolimus (FK506), Blood 12.2 ng/mL Normal 2.0-20.0 [facility] Comment on above: Result Comment: Trou gh (immediately following transplant) 15.0 . Trough (steady state, 2 weeks or more after transplant): 3.0 - 8.0 . Performed by LC-MS/MS technology. Performed By: #### F K506T ####[facility] Shjtuchnum89[address] [place] [phone]. Farhat Leal ACID FAST SMEAR AND CXon Acid Fast Culture Negative Normal [facility] Comment on above: Result Comment: No a abdiel fast bacilli isolated after 6 weeks. Performed By: #### A FB ####[facility] Hbixkwgjeq8616 [place] [phone]. Farhat Leal Acid Fast Smear Negative Normal [facility] Comment on above: Performed By: #### A FB ####[facility] Zofqwdwmkm[address] [place], [place] [id number]. Farhat [employer]al [employer] Specimen Processing Tissue Grinding Normal [facility] Comment on above: Performed By: #### A FB ####[facility] Aoxiwczrls[address] [place], [place] [id number]. Farhat Hassan 01-20-2022 CNPN Telephone (inexioBatool) ALEX ALMONTE ([id number]) 1945 M TRN Date Time Provider Department [...] by mouth daily with lunch. 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] 07/30/2006 VITAMIN D DEFICIENCY NOS [E55.9] 09/07/2008 [...] Status:Closed by VAN OLIVAREZ on 01/20/22 Normal [facility] PROF 14(COMP METB)on 022 Albumin [Mass/Vol] 1.9 g/dL Critically low 3.4-5.0 Th [facility] Comment on above: Performed By: #### C MP ####[facility] Gdnslvjueh[address] [place] [address]DrSkylar Leal Albumin/Globulin [Mass ratio] 0.5 {ratio} Normal [facility] Comment on above: Performed By: #### C MP ####[facility] Lhangwmrux6348 [place] [address]DrSkylar Leal ALP [Catalytic activity/Vol] 78 U/L Normal 46-116 [facility] Comment on above: Performed By: #### C MP ####[facility] Swxmsfjgzk4733 [place] [address]Dr. Farhat Elvis ALT [Catalytic activity/Vol] 22 U/L Normal 16-63 [facility] Comment on above: Performed By: #### C MP ####[facility] Mfzkbfrlnw3631 [place] [address]Dr. Farhat Leal Anion gap [Moles/Vol] 8.0 mmol/L Normal [facility] Comment on above: Performed By: #### C MP ####[facility] Ehdecrwfsv4867[address] [place], [place] [address]Dr. Farhat Elvis AST [Catalytic activity/Vol] 92 U/L Critically high 15-37 [facility] Comment on above: Performed By: #### C MP ####[facility] Elsxievoan6924[address] [place], [place] [address]Dr. Farhat Elvis Bilirubin [Mass/Vol] 0.7 mg/dL Normal 0.2-1.0 [facility] Comment on above: Performed By: #### C MP ####[facility] Ljkgybomxv7[address] [place], [place] [address]Dr. Farhat Elvis Calcium [Mass/Vol] 7.8 mg/dL Critically low 8.5-10.1 Th e [facility] Comment on above: Performed By: #### C MP ####[facility] Robotesybd97[address] [place], [place] [address]Dr. Farhat Leal Chloride [Moles/Vol] 99 mmol/L Normal 98-107 [facility] Comment on above: Performed By: #### C MP ####[facility] Pxwnihaayv[address] [place], [place] [address]Dr. Farhat Elvis CO2 [Moles/Vol] 30.9 mmol/L Normal 21.0-32.0 [facility] Comment on above: Performed By: #### C MP ####[facility] Suaqbxwxrv856[address] [place], [place] [address]Dr. Farhat Elvis Creatinine [Mass/Vol] 0.95 mg/dL Normal 0.70-1.30 [facility] Comment on above: Performed By: #### C MP ####[facility] Hwpfplnjvq695[address] [place], [place] [address]Dr. Farhat Leal EGFR-AF GEORGIAN >60 Normal >=60 [facility] Comment on above: Performed By: #### C MP ####[facility] Uyyyshuoja[address] [place] [address]Dr. Farhat Leal EGFR-NON AF GEORGIAN >60 Normal >=60 [facility] Comment on above: Performed By: #### C MP ####[facility] Mlvkjeuynt5000 [place] [address]Dr. Farhat Leal Globulin (S) [Mass/Vol] 3.9 g/dL Normal [facility] Comment on above: Performed By: #### C MP ####[facility] Cbrgpfcuha6765[address] [place], [place] [address]Dr. Farhat Leal Glucose [Mass/Vol] 124 mg/dL Critically high 74-106 T [facility] Comment on above: Performed By: #### C MP ####[facility] Feclyfditp108[address] [place], [place] [address]Dr. Farhat Leal Potassium [Moles/Vol] 5.9 mmol/L Critically high 3.5-5.1 [facility] Comment on above: Performed By: #### C MP ####[facility] Rbozuqspke309[address] [place], [place] [address]Dr. Farhat Leal Protein [Mass/Vol] 5.8 g/dL Critically low 6.4-8.2 Th [facility] Comment on above: Performed By: #### C MP ####[facility] Stjfgtevnx17[address] [place], [place] [address]Dr. Farhat Leal Sodium [Moles/Vol] 132 mmol/L Critically low 136-145 Th [facility] Comment on above: Performed By: #### C MP ####[facility] Eycubteifu0060[address] [place], [place] [address]Dr. Farhat Leal Urea nitrogen [Mass/Vol] 18.0 mg/dL Normal 7.0-18.0 [facility] Comment on above: Performed By: #### C MP ####[facility] Usvshbwacv6812[address] [place], [place] [address]Dr. Farhat Leal Urea nitrogen/Creatinine [Mass ratio] 18.9 mg/mg Normal [facility] Comment on above: Performed By: #### C MP ####[facility] Hagmkblmmr2941 [place] [address]Dr. Farhat Leal INR (POC)on 01-12-2022 INR Coag (PPP) [Relative time] 2.6 {INR} High 0.8 - 1.2 [place] Internal Quality Check Acceptable Cl [facility] ACID FAST SMEAR AND CXon Acid Fast Culture Negative Normal [facility] Comment on above: Result Comment: No a abdiel fast bacilli isolated after 6 weeks. Performed By: #### A FB ####[facility] Lroukkcsec8[address] [place], [place] [address]Dr. Farhat Leal Acid Fast Smear Negative Normal [facility] Comment on above: Performed By: #### A FB ####[facility] Wiyxcxxwyq6555[address] [place], [place] [address]Dr. Farhat Leal [employer] Specimen Processing Direct Inoculation Normal [facility] Comment on above: Performed By: #### A FB ####[facility] Zvegvflvpl0424[address] [place], [place] [address]Dr. Farhat Leal ACID FAST SMEAR AND CXon Acid Fast Culture Negative Normal [facility] Comment on above: Result Comment: No a abdiel fast bacilli isolated after 6 weeks. Performed By: #### A FB ####[facility] Ugquxlenit1928[address] [place], [place] [address]Dr. Farhat Leal Acid Fast Smear Negative Normal [facility] Comment on above: Performed By: #### A FB ####[facility] Xcyayttyrq6[address] [place], [place] [address]Dr. Farhat Leal [employer] Specimen Processing Tissue Grinding Normal [facility] Comment on above: Performed By: #### A FB ####[facility] Picmwjurdh32264[address] [place], [place] [address]Dr. Farhat Leal FUNGAL CULTUREon 01-02-2022 Fungus (Mycology) Culture Final report Normal [facility] Comment on above: Performed By: #### C XFUN ####[facility] Wkjowrvxgr[address] [place], [place] [id number]. Farhat Leal Fungus Stain Final report Normal [facility] Comment on above: Performed By: #### C XFUN ####[facility] Khfyvdwuua230[address] [place], [place] [address]Dr. Farhat Leal Result 1 Comment Normal [facility] Comment on above: Result Comment: ANNI/ Calcofluor preparation: no fungus observed. Performed By: #### C XFUN ####[facility] Pqzuuzhjsr67[address] [place], [place] [address]Dr. Farhat Leal Result Comment: No y east or mold isolated after 4 weeks. FK506 (TACROLIMUS) WHOLE BLO ODon 12-31-2021 Tacrolimus (FK506), Blood 7.7 ng/mL Normal 2.0-20.0 [facility] Comment on above: Result Comment: Trou gh (immediately following transplant) 15.0 . Trough (steady state, 2 weeks or more after transplant): 3.0 - 8.0 . Performed by LC-MS/MS technology. Performed By: #### F K506T ####[facility] Yjgymipxvz[address] [place], [place] [address]Dr. Farhat Leal HEMOGRAM AND PLATELon 2021 Hematocrit (Bld) [Volume fraction] 27.1 % Critically low 42.0-54.0 [facility] Comment on above: Performed By: #### H H ####[facility] Tnmyunwxhj06[address] [place], [place] [address]Dr. Farhat Leal Hemoglobin (Bld) [Mass/Vol] 8.7 g/dL Critically low 14.0-18.0 [facility] Comment on above: Performed By: #### H H ####[facility] Vwzoaoqaen29[address] [place], [place] [address]Dr. Farhat Leal MCH (RBC) [Entitic mass] 30.3 pg Normal 25.9-34.0 [facility] Comment on above: Performed By: #### H H ####[facility] Btkttuflnt94[address] [place], [place] [address]Dr. Farhat Leal MCHC (RBC) [Mass/Vol] 32.1 g/dL Normal 29.9-35.2 [facility] Comment on above: Performed By: #### H H ####[facility] Bogriwnwab45[address] [place] [phone] Farhat Elvis MCV (RBC) [Entitic vol] 94.4 fL Critically high 80.0-94.0 [facility] Comment on above: Performed By: #### H H ####[facility] Tfsnumqdtb7704 [place] [phone]. Farhat Leal PLT 355 103/ul Normal 150-450 [facility] Comment on above: Performed By: #### H H ####[facility] Vaywdagzrd4482 [place] [phone]. Farhat Leal RBC 2.87 106/ul Critically low 4.70-6.10 [facility] Comment on above: Performed By: #### H H ####[facility] Alixgbupli8720 [place] [address]DrSkylar Leal WBC 6.0 103/ul Normal 4.0-11.0 [facility] Comment on above: Performed By: #### H H ####[facility] Dkmbqbatwt2458 [place] [phone] Leal PHOSPHORUSon 12-29-2021 Phosphate [Mass/Vol] 2.5 mg/dL Critically low 2.6-4.7 [facility] Comment on above: Performed By: #### P HOS, CMP ####[facility] Ertbkvzlhr9874 [place] [phone] Leal PROF 14(COMP METB)on 022 Albumin [Mass/Vol] 1.7 g/dL Critically low 3.4-5.0 [facility] Comment on above: Performed By: #### P HOS, CMP ####[facility] Fhlqxmzrfz9[address] [place], [place] [address]DrSkylar Leal Albumin/Globulin [Mass ratio] 0.5 {ratio} Normal [facility] Comment on above: Performed By: #### P HOS, CMP ####[facility] Usbcwanhxw7819 [place] [phone] Leal ALP [Catalytic activity/Vol] 78 U/L Normal 46-116 [facility] Comment on above: Performed By: #### P HOS, CMP ####[facility] Ixqhpdngkq0644 [place] [address]Dr. Farhat Leal ALT [Catalytic activity/Vol] 12 U/L Critically low 16-63 [facility] Comment on above: Performed By: #### P HOS, CMP ####[facility] Pfjequltlf8209 [place] [address]Dr. Madelynlorri Leal Anion gap [Moles/Vol] 5.1 mmol/L Normal [facility] Comment on above: Performed By: #### P HOS, CMP ####[facility] Pctwqdsdqt915[address] [place], [place] [address]Dr. Madelynlorri Leal AST [Catalytic activity/Vol] 22 U/L Normal 15-37 [facility] Comment on above: Performed By: #### P HOS, CMP ####[facility] Qppldlxrjn9685[address] [place], [place] [address]Dr. Farhat Leal Bilirubin [Mass/Vol] 0.6 mg/dL Normal 0.2-1.0 [facility] Comment on above: Performed By: #### P HOS, CMP ####[facility] Ygppeytxec3414[address] [place], [place] [address]Dr. Farhat Leal Calcium [Mass/Vol] 8.1 mg/dL Critically low 8.5-10.1 Th [facility] Comment on above: Performed By: #### P HOS, CMP ####[facility] Uepdbxujjt[address] [place], [place] [address]Dr. Farhat Leal Chloride [Moles/Vol] 100 mmol/L Normal 98-107 [facility] Comment on above: Performed By: #### P HOS, CMP ####[facility] Dkqowsyiyu110[address] [place], [place] [address]Dr. Farhat Leal CO2 [Moles/Vol] 34.2 mmol/L Critically high 21.0-32.0 [facility] Comment on above: Performed By: #### P HOS, CMP ####[facility] Plxlccwbxi3100[address] [place], [place] [address]Dr. Farhat Elvis Creatinine [Mass/Vol] 0.92 mg/dL Normal 0.70-1.30 [facility] Comment on above: Performed By: #### P HOS, CMP ####[facility] Ntusksconq[address] [place] [address]Dr. Farhat Leal EGFR-AF GEORGIAN >60 Normal >=60 [facility] Comment on above: Performed By: #### P HOS, CMP ####[facility] Ruoenftlhh0117 [place] [address]Dr. Farhat Elvis EGFR-NON AF GEORGIAN >60 Normal >=60 [facility] Comment on above: Performed By: #### P HOS, CMP ####[facility] Qsehqtzgxm23[address] [place], [place] [address]Dr. Farhat Leal Globulin (S) [Mass/Vol] 3.3 g/dL Normal [facility] Comment on above: Performed By: #### P HOS, CMP ####[facility] Noursrxtbn5960[address] [place], [place] [address]Dr. Madelynlorri Elvis Glucose [Mass/Vol] 116 mg/dL Critically high 74-[address] [facility] Comment on above: Performed By: #### P HOS, CMP ####[facility] Fnojvhwubc[address] [place], [place] [address]Dr. Farhat Leal Potassium [Moles/Vol] 3.3 mmol/L Critically low 3.5-5.1 [facility] Comment on above: Performed By: #### P HOS, CMP ####[facility] Ztmlcbyqbv0327 [place] [address]Dr. Farhat Leal Protein [Mass/Vol] 5.0 g/dL Critically low 6.4-8.2 Th [facility] Comment on above: Performed By: #### P HOS, CMP ####[facility] Kpcxlokdsx6301 [place] [address]Dr. Farhat Leal Sodium [Moles/Vol] 136 mmol/L Normal 136-145 [facility] Comment on above: Performed By: #### P HOS, CMP ####[facility] Odawhqdqhp[address] [place], [place] [address]Dr. Farhat Leal Urea nitrogen [Mass/Vol] 14.0 mg/dL Normal 7.0-18.0 [facility] Comment on above: Performed By: #### P HOS, CMP ####[facility] Dvdegdivbj4190 [place] [address]Dr. Farhat Leal Urea nitrogen/Creatinine [Mass ratio] 15.2 mg/mg Normal [facility] Comment on above: Performed By: #### P HOS, CMP ####[facility] Cpyzabstwk911[address] [place], [place] [address]Dr. Farhat Leal PROTIMEon 12-29-2021 INR Coag (PPP) [Relative time] 1.26 {INR} Normal [facility] Comment on above: Performed By: #### P T ####[facility] Lixktealmw8[address] [place], [place] [address]Dr. Farhat Leal INR GUIDELINES SEE BELOW Normal [facility] Comment on above: Result Comment: MALINA RED INR: 2.0 - 3.0 CONDITIONS NOT LISTED BELOW 2.5 - 3.5 FOR PROSTHETIC HEART VALVE REPLACEMENT 2.5 - 3.5 RECURRENT THROMBOSIS Performed By: #### P T ####[facility] Ilmecocjsg759[address] [place], [place] [address]Dr. Farhat Leal PT Coag (PPP) [Time] 13.4 s Critically high 9.0-11.6 [facility] Comment on above: Performed By: #### P T ####[facility] Hypleoxcls8800[address] [place], [place] [address]Dr. Farhat Leal XR MODIFIED BARIUM SWALLOWon 12-25-2021 XR MODIFIED BARIUM SWALLOW Normal [facility] FUNGAL CULTUREon 12-24-2021 Fungus (Mycology) Culture Final report Normal [facility] Comment on above: Performed By: #### C XFUN ####[facility] Yirmvfpjfh235[address] [place], [place] [address]Dr. Farhat Leal Fungus Stain Final report Normal [facility] Comment on above: Performed By: #### C XFUN ####[facility] Vezorggzcn16[address] [place], [place] [address]DrSkylar Leal Result 1 Comment Normal [facility] Comment on above: Result Comment: ANNI/ Calcofluor preparation: no fungus observed. Performed By: #### C XFUN ####[facility] Tmqifvrkwi284[address] [place], [place] [address]Dr. Madelynolrri eLal Result Comment: No y east or mold isolated after 4 weeks. VANCOMYCIN TROUGHon 12-21-19 VANCOMYCIN TROUGH 14.4 ug/ml Normal 5.0-20.0 [facility] Comment on above: Performed By: #### V ANCT ####[facility] Vdpgegnrfc9[address] [place], [place] [address]Dr. Madelynlorri Leal CBC AUTO DIFFon 12-14-2021 BASO # 0.0 103/ul Normal 0.0-0.1 [facility] Comment on above: Performed By: #### C BC ####[facility] Semdpqmjde860[address] [place], [place] [address]Dr. Farhat Leal Basophils/100 WBC (Bld) 0.2 % Normal 0.2-2.0 [facility] Comment on above: Performed By: #### C BC ####[facility] Vvurektptx5[address] [place], [place] [address]Dr. Farhat Leal EO # 0.2 103/ul Normal 0.0-0.7 [facility] Comment on above: Performed By: #### C BC ####[facility] Nggojmokqe349[address] [place], [place] [address]Dr. Farhat Leal Eosinophils/100 WBC (Bld) 2.1 % Normal 0.9-7.0 [facility] Comment on above: Performed By: #### C BC ####[facility] Mvcsopfmvv[address] [place], [place] [address]Dr. Farhat Leal Erythrocyte distribution width (RBC) [Ratio] 18.2 % Critically high 11.0-15.0 [facility] Comment on above: Performed By: #### C BC ####[facility] Hdfrzxsjhx[address] [place], [place] [address]Dr. Farhat Leal Hematocrit (Bld) [Volume fraction] 25.8 % Critically low 42.0-54.0 [facility] Comment on above: Performed By: #### C BC ####[facility] Lhffohsdbn4388 [place] [phone]. Farhat Leal Hemoglobin (Bld) [Mass/Vol] 8.0 g/dL Critically low 14.0-18.0 [facility] Comment on above: Performed By: #### C BC ####[facility] Mvrnwhzulv6076 [place] [phone]. Farhat Leal IG # 0.08 10e3/ul Critically high 0.00-0.03 [facility] Comment on above: Performed By: #### C BC ####[facility] Ghvbitvrun4979 [place] [phone]. Farhat Leal IG % 0.7 % Critically high 0.0-0.5 [facility] Comment on above: Performed By: #### C BC ####[facility] Jtnpjbkedy[address] [place] [address]Dr. Farhat Leal LYMPH # 0.9 103/ul Critically low 1.2-3.8 [facility] Comment on above: Performed By: #### C BC ####[facility] Ydjhlxafdf6411 [place] [phone]. Farhat Leal Lymphocytes/100 WBC (Bld) 8.7 % Critically low 20.5-60.0 [facility] Comment on above: Performed By: #### C BC ####[facility] Hhbzcpuzjn[address] [place] [address]Dr. Farhat Leal MANUAL DIFF REQ NO Normal [facility] Comment on above: Performed By: #### C BC ####[facility] Cxraoodgwf7867 [place] [phone]. Farhat Leal MCH (RBC) [Entitic mass] 30.0 pg Normal 25.9-34.0 [facility] Comment on above: Performed By: #### C BC ####[facility] Bqnpitsexp3387 [place] [phone]. Farhat Leal MCHC (RBC) [Mass/Vol] 31.0 g/dL Normal 29.9-35.2 [facility] Comment on above: Performed By: #### C BC ####[facility] Vpkvdtzonl6951 [place] [phone]. Faraht Leal MCV (RBC) [Entitic vol] 96.6 fL Critically high 80.0-94.0 [facility] Comment on above: Performed By: #### C BC ####[facility] Filmsupsck[address] [place] [id number]. Farhat Leal MONO # 0.7 103/ul Normal 0.3-0.8 [facility] Comment on above: Performed By: #### C BC ####[facility] Usmktolumd[address] [place] [id number]. Farhat Elvis Monocytes/100 WBC (Bld) 6.7 % Normal 1.7-12.0 [facility] Comment on above: Performed By: #### C BC ####[facility] Kjszzhdfcx179[address] [place], [place] [address]Dr. Farhat Leal NEUT # 8.8 103/ul Critically high 1.4-6.5 [facility] Comment on above: Performed By: #### C BC ####[facility] Nxlfxzlamg[address] [place], [place] [id number]. Farhat Leal Neutrophils/100 WBC (Bld) 81.6 % Critically high 43.0-75.0 [facility] Comment on above: Performed By: #### C BC ####[facility] Qlziqsgwae[address] [place], [place] [id number]. Farhat Elvis Platelet mean volume (Bld) [Entitic vol] 10.5 fL Normal 9.5-13.5 [facility] Comment on above: Performed By: #### C BC ####[facility] Piujpqimdr[address] [place], [place] [id number]. Farhat Elvis PLT 285 103/ul Normal 150-450 [facility] Comment on above: Performed By: #### C BC ####[facility] Zkjyxxyoig25[address] [place] [id number]. Farhat Leal RBC 2.67 106/ul Critically low 4.70-6.10 [facility] Comment on above: Performed By: #### C BC ####[facility] Lrxntexcgz4[address] [place] [id number]. Madelynlorri Elvis WBC 10.7 103/ul Normal 4.0-11.0 [facility] Comment on above: Performed By: #### C BC ####[facility] Pyhsyjezez[address] [place] [address]Dr. Farhat Leal PROF CHEM 8 (BAS METB)on Anion gap [Moles/Vol] 12.4 mmol/L Normal [facility] Comment on above: Performed By: #### B MP ####[facility] Zidfzisocw115[address] [place], [place] [address]Dr. Farhat Leal Calcium [Mass/Vol] 7.8 mg/dL Critically low 8.5-10.1 [facility] Comment on above: Performed By: #### B MP ####[facility] Tbonzvosjd870[address] [place], [place] [address]Dr. Farhat Leal Chloride [Moles/Vol] 102 mmol/L Normal 98-107 [facility] Comment on above: Performed By: #### B MP ####[facility] Vonzwrsgda183[address] [place], [place] [address]Dr. Farhat Leal CO2 [Moles/Vol] 28.1 mmol/L Normal 21.0-32.0 [facility] Comment on above: Performed By: #### B MP ####[facility] Xydnepcbsb17[address] [place], [place] [address]Dr. Farhat Leal Creatinine [Mass/Vol] 1.24 mg/dL Normal 0.70-1.30 [facility] Comment on above: Performed By: #### B MP ####[facility] Jlwzrynhcz[address] [place], [place] [address]Dr. Farhat Leal EGFR-AF GEORGIAN >60 Normal >=60 [facility] Comment on above: Performed By: #### B MP ####[facility] Dgrouebrxp9839[address] [place], [place] [address]Dr. Farhat Leal EGFR-NON AF GEORGIAN 57 mL/min/1.73m2 Critically low >=60 [facility] Comment on above: Performed By: #### B MP ####[facility] Wnyyrejadj[address] [place] [address]Dr. Farhat Leal Glucose [Mass/Vol] 296 mg/dL Critically high 74-[address] [facility] Comment on above: Performed By: #### B MP ####[facility] Looozrydsr17[address] [place] [address]Dr. Farhat Leal Potassium [Moles/Vol] 3.5 mmol/L Normal 3.5-5.1 [facility] Comment on above: Performed By: #### B MP ####[facility] Rvtmagzdop8762 [place] [address]Dr. Farhat Leal Sodium [Moles/Vol] 139 mmol/L Normal 136-145 [facility] Comment on above: Performed By: #### B MP ####[facility] Hivevmkezm1064 [place] [address]Dr. Farhat Leal Urea nitrogen [Mass/Vol] 27.0 mg/dL Critically high 7.0-18.0 [facility] Comment on above: Performed By: #### B MP ####[facility] Wzdsjelwvx28[address] [place], [place] [address]Dr. Farhat Leal Urea nitrogen/Creatinine [Mass ratio] 21.8 mg/mg Normal [facility] Comment on above: Performed By: #### B MP ####[facility] Szozcplcbe287[address] [place], [place] [address]Dr. Farhat Leal PROTIMEon 12-14-2021 INR Coag (PPP) [Relative time] 3.36 {INR} Normal [facility] Comment on above: Performed By: #### P T ####[facility] Lkcknxanwp8117[address] [place], [place] [address]Dr. Farhat Leal INR GUIDELINES SEE BELOW Normal [facility] Comment on above: Result Comment: MALINA RED INR: 2.0 - 3.0 CONDITIONS NOT LISTED BELOW 2.5 - 3.5 FOR PROSTHETIC HEART VALVE REPLACEMENT 2.5 - 3.5 RECURRENT THROMBOSIS Performed By: #### P T ####[facility] Vemacfehkf83[address] [place], [place] [address]Dr. Farhat Leal PT Coag (PPP) [Time] 33.5 s Critically high 9.0-11.6 [facility] Comment on above: Performed By: #### P T ####[facility] Wkzturzefd7[address] [place] [address]Dr. Farhat Elvis XR CHEST 1 Von 12-14-2021 XR CHEST 1 V Normal [facility] No Panel Informationon 12-01 BLANK _ [place] Implant Date 04/22/2012 [place] [facility] CHECKon AMS Duration (ms) 5 of 8 [facility] AMS Fallback Rate (bpm) DDIR [place] AV Delay Adaptive Paced Minimum (ms) 300 ms [place] AV Delay Adaptive Rate Maximum (bpm) 130 {beats}/min [place] AV Delay Adaptive Rate Minimum (bpm) 70 {beats}/min [place] AV Delay Adaptive Sensed Minimum (ms) 300 ms [place] AV Delay Paced (ms) 300 ms [facility] AV Delay Sensed (ms) 300 ms [facility] Jaciel LV Pacing Polarity Unknown [place] Jaciel LV Sensing Polarity Unknown [place] Jaciel RA Pacing Amplitude (volts) 2.4 V [place] Jaciel RA Pacing Polarity BI [place] Jaciel RA Pacing Pulse Width (ms) 0.4 ms [place] Jaciel RA Sensing Amplitude (mvolts) AUTO [place] Jaciel RA Sensing Blanking Period (ms) 56 ms [place] Jaciel RA Sensing Polarity BI [place] Jaciel RA Sensing Refractory Period (ms) AUTO [place] Jaciel RV Pacing Amplitude (volts) 3.4 V [place] Jaciel RV Pacing Polarity BI [place] Jaciel RV Pacing Pulse Width (ms) 0.4 ms [place] Jaciel RV Sensing Amplitude (mvolts) AUTO [place] Jaciel RV Sensing Blanking Period (ms) 30 ms [place] Jaciel RV Sensing Polarity BI [place] Jaciel RV Sensing Refractory Period (ms) 250 ms [place] Hysteresis Rate (bpm) 60 {beats}/min [place] Lead1 Mfg SUZETTE [place] Lead2 Mfg SUZETTE [place] Location RA [place] Location RV [place] Lower Rate (bpm) 60 {beats}/min [facility] Max Sensor Rate (bmp) 130 {beats}/min [place] Model 704872 Monika cortes [facility] Model 641573 [place] Model 764566 [place] Pacemaker Dependent? NO [facility] PM-Device Mfg BIO [place] PM-PMT Intervention ON [facility] PM-PVC Intervention ON [facility] PM-Rate Modulation Acceleration Reaction 4 s [place] PM-Rate Modulation Deceleration 0.5 m [place] PM-Rate Modulation [place] 23 [place] PM-Rate Modulation Threshold Medium [place] RA Bipolar Impedance ohms 448 ohm [place] Rhythm AF with controlled ventricular rate. [place] RV Bipolar Impedance ohms 390 ohm [place] Serial Number [id number] [place] Serial Number [id number] [place] Serial Number [id number] [place] Thresh RA Sensing Amplitude (mvolts) 2.4 mV [place] Thresh RV Capture Amplitude (volts) 1.8 V [place] Thresh RV Capture Duration (ms) 0.4 ms [place] Thresh RV Sensing Amplitude (mvolts) 2.4 mV [place] Tracking Rate (bpm) 160 {beats}/min [place] BNPon 11-28-2021 Natriuretic peptide B (Bld) [Mass/Vol] 81164.0 pg/mL Critically high <=1,800.0 [facility] Comment on above: Performed By: #### C MP, BNP, CRP ####[facility] Clsifnpryd140[address] [place], [place] [address]Dr. Farhat Leal CBC AUTO DIFFon 11-28-2021 BASO # 0.0 103/ul Normal 0.0-0.1 [facility] Comment on above: Performed By: #### C BC ####[facility] Rmgiorbbto73[address] [place] [address]Dr. Farhat Leal Basophils/100 WBC (Bld) 0.3 % Normal 0.2-2.0 [facility] Comment on above: Performed By: #### C BC ####[facility] Vvjgiuwizj[address] [place], [place] [address]Dr. Farhat Leal EO # 0.1 103/ul Normal 0.0-0.7 [facility] Comment on above: Performed By: #### C BC ####[facility] Xizoltupyv7[address] [place] [id number]. Farhat Leal Eosinophils/100 WBC (Bld) 1.0 % Normal 0.9-7.0 [facility] Comment on above: Performed By: #### C BC ####[facility] Uenmxzxpqe7[address] [place] [address]Dr. Farhat Leal Erythrocyte distribution width (RBC) [Ratio] 14.0 % Normal 11.0-15.0 [facility] Comment on above: Performed By: #### C BC ####[facility] Euxtxfcpmk[address] [place], [place] [address]Dr. Farhat Leal Hematocrit (Bld) [Volume fraction] 27.6 % Critically low 42.0-54.0 [facility] Comment on above: Performed By: #### C BC ####[facility] Hkwqctqyzj[address] [place], [place] [address]Dr. Farhat Leal Hemoglobin (Bld) [Mass/Vol] 9.0 g/dL Critically low 14.0-18.0 [facility] Comment on above: Performed By: #### C BC ####[facility] Fgkyayfcea[address] [place] [address]Dr. Farhat Leal IG # 0.12 10e3/ul Critically high 0.00-0.03 [facility] Comment on above: Performed By: #### C BC ####[facility] Chxfeshtsk5[address] [place] [address]Dr. Farhat Leal IG % 1.0 % Critically high 0.0-0.5 [facility] Comment on above: Performed By: #### C BC ####[facility] Susstqgqul9[address] [place] [phone]. Farhat Leal LYMPH # 1.2 103/ul Normal 1.2-3.8 [facility] Comment on above: Performed By: #### C BC ####[facility] Ahmjjegehb25[address] [place], [place] [address]Dr. Farhat Leal Lymphocytes/100 WBC (Bld) 9.9 % Critically low 20.5-60.0 [facility] Comment on above: Performed By: #### C BC ####[facility] Slmwryqafi[address] [place] [phone]. Farhat Leal MANUAL DIFF REQ NO Normal [facility] Comment on above: Performed By: #### C BC ####[facility] Vidrxpxgmb4933 [place] [phone]. Farhat Leal MCH (RBC) [Entitic mass] 30.0 pg Normal 25.9-34.0 [facility] Comment on above: Performed By: #### C BC ####[facility] Wmiosowkwh[address] [place], [place] [address]Dr. Farhat Leal MCHC (RBC) [Mass/Vol] 32.6 g/dL Normal 29.9-35.2 [facility] Comment on above: Performed By: #### C BC ####[facility] Ngmukpesrn076[address] [place], [place] [address]Dr. Farhat Leal MCV (RBC) [Entitic vol] 92.0 fL Normal 80.0-94.0 [facility] Comment on above: Performed By: #### C BC ####[facility] Abcgfjjxig418[address] [place], [place] [address]Dr. Farhat Elvis MONO # 1.1 103/ul Critically high 0.3-0.8 [facility] Comment on above: Performed By: #### C BC ####[facility] Fmzmgiotst46[address] [place], [place] [address]Dr. Farhat Leal Monocytes/100 WBC (Bld) 9.3 % Normal 1.7-12.0 [facility] Comment on above: Performed By: #### C BC ####[facility] Smnpoxvhug3885 [place] [phone]. Madelynlorri Leal NEUT # 9.3 103/ul Critically high 1.4-6.5 [facility] Comment on above: Performed By: #### C BC ####[facility] Ufinrpwnxk7732[address] [place], [place] [address]Dr. Farhat Leal Neutrophils/100 WBC (Bld) 78.5 % Critically high 43.0-75.0 [facility] Comment on above: Performed By: #### C BC ####[facility] Fdncbvygsv2640 [place] [phone]. Farhat Leal Platelet mean volume (Bld) [Entitic vol] 9.6 fL Normal 9.5-13.5 [facility] Comment on above: Performed By: #### C BC ####[facility] Vtircvjoul34[address] [place] [phone]. Farhat Leal PLT 357 103/ul Normal 150-450 [facility] Comment on above: Performed By: #### C BC ####[facility] Njyfnlbkmv3143 [place] [address]Dr. Frahat Leal RBC 3.00 106/ul Critically low 4.70-6.10 [facility] Comment on above: Performed By: #### C BC ####[facility] Zpcsuabgum[address] [place], [place] [address]Dr. Farhat Leal WBC 11.8 103/ul Critically high 4.0-11.0 [facility] Comment on above: Performed By: #### C BC ####[facility] Rznfjmrmar5349 [place] [phone]. Farhat Elvis CRPon 11-28-2021 CRP 20.9 mg/dL Critically high <=1.0 [facility] Comment on above: Performed By: #### C MP, BNP, CRP ####[facility] Mpgnhmomdl72[address] [place] [phone]. Farhat Leal CULTURE OTHERon 11-28-2021 CULTURE OTHER Normal [facility] Comment on above: Performed By: #### O THCX ####[facility] Nysakyffgw13[address] [place] [address]Dr. Farhat Leal CULTURE OTHER Normal [facility] Comment on above: Performed By: #### O THCX ####[facility] Vwksckqjkj177[address] [place], [place] [address]Dr. Farhat Leal PROF 14(COMP METB)on 022 Albumin [Mass/Vol] 1.4 g/dL Critically low 3.4-5.0 [facility] Comment on above: Performed By: #### C MP, BNP, CRP ####[facility] Wrshcwwhox[address] [place] [address]Dr. Farhat Leal Albumin/Globulin [Mass ratio] 0.4 {ratio} Normal [facility] Comment on above: Performed By: #### C MP, BNP, CRP ####[facility] Qsgzrasoko5679 [place] [address]Dr. Farhat Leal ALP [Catalytic activity/Vol] 82 U/L Normal 46-116 [facility] Comment on above: Performed By: #### C MP, BNP, CRP ####[facility] Qxjjnzehol8707 [place] [address]Dr. Farhat Leal ALT [Catalytic activity/Vol] 20 U/L Normal 16-63 [facility] Comment on above: Performed By: #### C MP, BNP, CRP ####[facility] Eojimtpvho9632 [place] [address]Dr. Farhat Leal Anion gap [Moles/Vol] 13.0 mmol/L Normal [facility] Comment on above: Performed By: #### C MP, BNP, CRP ####[facility] Dufwnzroxq38[address] [place], [place] [address]Dr. Farhat Leal AST [Catalytic activity/Vol] 33 U/L Normal 15-37 [facility] Comment on above: Performed By: #### C MP, BNP, CRP ####[facility] Ggzerervgm3183 [place] [address]Dr. Farhat Leal Bilirubin [Mass/Vol] 0.7 mg/dL Normal 0.2-1.0 [facility] Comment on above: Performed By: #### C MP, BNP, CRP ####[facility] Rqpkckbvpi4453 [place] [address]Dr. Farhat Leal Calcium [Mass/Vol] 8.4 mg/dL Critically low 8.5-10.1 [facility] Comment on above: Performed By: #### C MP, BNP, CRP ####[facility] Jplnvatkvh8453 [place] [address]Dr. Farhat Leal Chloride [Moles/Vol] 100 mmol/L Normal 98-107 [facility] Comment on above: Performed By: #### C MP, BNP, CRP ####[facility] Luxkwfyukr0079 [place] [address]Dr. Farhat Leal CO2 [Moles/Vol] 23.7 mmol/L Normal 21.0-32.0 [facility] Comment on above: Performed By: #### C MP, BNP, CRP ####[facility] Skkfweoqce7197 [place] [address]Dr. Farhat Leal Creatinine [Mass/Vol] 1.70 mg/dL Critically high 0.70-1.30 [facility] Comment on above: Performed By: #### C MP, BNP, CRP ####[facility] Qqtjemcjlq107[address] [place], [place] [address]Dr. Farhat Leal EGFR-AF GEORGIAN 48 mL/min/1.73m2 Critically low >=60 [facility] Comment on above: Performed By: #### C MP, BNP, CRP ####[facility] Kiabbixnyi30[address] [place], [place] [address]Dr. Farhat Leal EGFR-NON AF GEORGIAN 39 mL/min/1.73m2 Critically low >=60 [facility] Comment on above: Performed By: #### C MP, BNP, CRP ####[facility] Bwuxiywvxx38[address] [place] [address]Dr. Farhat Leal Globulin (S) [Mass/Vol] 3.6 g/dL Normal [facility] Comment on above: Performed By: #### C MP, BNP, CRP ####[facility] Ongahffyxl2507 [place] [address]Dr. Farhat Leal Glucose [Mass/Vol] 232 mg/dL Critically high 74-[address] [facility] Comment on above: Performed By: #### C MP, BNP, CRP ####[facility] Qvvtpbskey8638[address] [place], [place] [address]Dr. Farhat Leal Potassium [Moles/Vol] 3.7 mmol/L Normal 3.5-5.1 [facility] Comment on above: Performed By: #### C MP, BNP, CRP ####[facility] Pqwotqygir6494 [place] [address]Dr. Farhat Leal Protein [Mass/Vol] 5.0 g/dL Critically low 6.4-8.2 [facility] Comment on above: Performed By: #### C MP, BNP, CRP ####[facility] Ktsmafeamc6329 [place] [address]Dr. Farhat Leal Sodium [Moles/Vol] 133 mmol/L Critically low 136-145 [facility] Comment on above: Performed By: #### C MP, BNP, CRP ####[facility] Rnuumiwkvm3570 [place] [address]Dr. Farhat Leal Urea nitrogen [Mass/Vol] 52.0 mg/dL Critically high 7.0-18.0 [facility] Comment on above: Performed By: #### C MP, BNP, CRP ####[facility] Kdmgarbpfn[address] [place], [place] [address]Dr. Farhat Leal Urea nitrogen/Creatinine [Mass ratio] 30.6 mg/mg Normal [facility] Comment on above: Performed By: #### C MP, BNP, CRP ####[facility] Epluhywbsd[address] [place], [place] [address]Dr. Farhat Leal PROTIMEon 11-28-2021 INR Coag (PPP) [Relative time] 1.29 {INR} Normal [facility] Comment on above: Performed By: #### P T ####[facility] Idmtahfzoa387[address] [place], [place] [address]Dr. Farhat Leal INR GUIDELINES SEE BELOW Normal [facility] Comment on above: Result Comment: MALINA RED INR: 2.0 - 3.0 CONDITIONS NOT LISTED BELOW 2.5 - 3.5 FOR PROSTHETIC HEART VALVE REPLACEMENT 2.5 - 3.5 RECURRENT THROMBOSIS Performed By: #### P T ####[facility] Zvntuseesq2367[address] [place], [place] [address]Dr. Farhat Leal PT Coag (PPP) [Time] 13.7 s Critically high 9.0-11.6 [facility] Comment on above: Performed By: #### P T ####[facility] Ciipnbiqqk6229 [place] [address]Dr. Farhat Leal SED RATE WESTERGRENon 2021 SED RATE 77 mm/hr Critically high <=20 [facility] Comment on above: Performed By: #### S EDR ####[facility] Mcqfndebhm046[address] [place], [place] [address]Dr. Farhat Leal XR CHEST 2 Von 11-28-2021 XR CHEST 2 V Normal [facility] BNPon 11-27-2021 Natriuretic peptide B (Bld) [Mass/Vol] 39137.0 pg/mL Critically high <=1,800.0 [facility] Comment on above: Performed By: #### B SOLE LEVELING MACHINE OPERATOR, CMP, CRP ####[facility] Oepbvgcbfm52[address] [place], [place] [address]Dr. Farhat Leal CBC AUTO DIFFon 11-27-2021 BASO # 0.0 103/ul Normal 0.0-0.1 [facility] Comment on above: Performed By: #### C BC ####[facility] Eznljcvqob8547[address] [place], [place] [address]Dr. Farhat Leal Basophils/100 WBC (Bld) 0.2 % Normal 0.2-2.0 [facility] Comment on above: Performed By: #### C BC ####[facility] Dlypiqiqis474[address] [place], [place] [address]Dr. Farhat Leal EO # 0.2 103/ul Normal 0.0-0.7 [facility] Comment on above: Performed By: #### C BC ####[facility] Rqdwelhwsp5[address] [place], [place] [address]Dr. Farhat Leal Eosinophils/100 WBC (Bld) 1.9 % Normal 0.9-7.0 [facility] Comment on above: Performed By: #### C BC ####[facility] Aoalzhksrc[address] [place], [place] [address]Dr. Farhat Leal Erythrocyte distribution width (RBC) [Ratio] 13.9 % Normal 11.0-15.0 [facility] Comment on above: Performed By: #### C BC ####[facility] Hqmdrtfiqj[address] [place], [place] [address]Dr. Farhat Leal Hematocrit (Bld) [Volume fraction] 28.7 % Critically low 42.0-54.0 [facility] Comment on above: Performed By: #### C BC ####[facility] Yrroktntgu36[address] [place] [address]Dr. Farhat Leal Hemoglobin (Bld) [Mass/Vol] 9.3 g/dL Critically low 14.0-18.0 [facility] Comment on above: Performed By: #### C BC ####[facility] Uatubbxvmb84[address] [place] [address]Dr. Farhat Elvis IG # 0.14 10e3/ul Critically high 0.00-0.03 [facility] Comment on above: Performed By: #### C BC ####[facility] Mauciqfhog5244 [place] [address]Dr. Farhat Elvis IG % 1.2 % Critically high 0.0-0.5 [facility] Comment on above: Performed By: #### C BC ####[facility] Dplgnoesdr8518 [place] [address]Dr. Farhat Elvis LYMPH # 1.1 103/ul Critically low 1.2-3.8 [facility] Comment on above: Performed By: #### C BC ####[facility] Ujfalewcmx23[address] [place] [address]Dr. Farhat Lael Lymphocytes/100 WBC (Bld) 9.4 % Critically low 20.5-60.0 [facility] [facility] Comment on above: Performed By: #### C BC ####[facility] [address]xxlgrv[address] [place] [address]Dr. Farhat Elvis MANUAL DIFF REQ NO Normal [facility] Comment on above: Performed By: #### C BC ####[facility] Ndqxslhizr[address] [place] [address]Dr. Farhat Elvis MCH (RBC) [Entitic mass] 29.7 pg Normal 25.9-34.0 [facility] Comment on above: Performed By: #### C BC ####[facility] Zxfdlxswlt48[address] [place] [address]Dr. Farhat Leal MCHC (RBC) [Mass/Vol] 32.4 g/dL Normal 29.9-35.2 [facility] Comment on above: Performed By: #### C BC ####[facility] Nkjifzexea[address] [place] [phone]. Farhat Leal MCV (RBC) [Entitic vol] 91.7 fL Normal 80.0-94.0 [facility] Comment on above: Performed By: #### C BC ####[facility] Scfgldnean[address] [place] [phone]. Farhat Leal MONO # 1.1 103/ul Critically high 0.3-0.8 [facility] Comment on above: Performed By: #### C BC ####[facility] Mbnjcsawqs6724 [place] [phone]. Madelynlorri Leal Monocytes/100 WBC (Bld) 9.7 % Normal 1.7-12.0 [facility] Comment on above: Performed By: #### C BC ####[facility] Waizugvnaq67[address] [place] [phone]. Farhat Leal NEUT # 9.2 103/ul Critically high 1.4-6.5 [facility] Comment on above: Performed By: #### C BC ####[facility] Svwdpgntnv7225 [place] [phone]. Farhat Elvis Neutrophils/100 WBC (Bld) 77.6 % Critically high 43.0-75.0 [facility] Comment on above: Performed By: #### C BC ####[facility] Chvhymqcmn99[address] [place] [phone]. Farhat Elvis Platelet mean volume (Bld) [Entitic vol] 9.5 fL Normal 9.5-13.5 [facility] Comment on above: Performed By: #### C BC ####[facility] Xphmjjnlgx27[address] [place] [phone]. Farhat Elvis PLT 375 103/ul Normal 150-450 [facility] Comment on above: Performed By: #### C BC ####[facility] Tjhuzkptid[address] [place] [phone]. Farhat Leal RBC 3.13 106/ul Critically low 4.70-6.10 [facility] Comment on above: Performed By: #### C BC ####[facility] Kkotggtfop7374 [place] [phone]. Farhat Leal WBC 11.8 103/ul Critically high 4.0-11.0 [facility] Comment on above: Performed By: #### C BC ####[facility] Safvpqhvfe6233 [place] [phone]. Farhat Leal CRPon 11-27-2021 CRP 24.5 mg/dL Critically high <=1.0 [facility] Comment on above: Performed By: #### B SOLE LEVELING MACHINE OPERATOR, CMP, CRP ####[facility] Kkddkhbern11[address] [place] [phone]. Farhat Leal CULTURE OTHERon 11-27-2021 CULTURE OTHER Normal [facility] Comment on above: Performed By: #### O THCX ####[facility] Yzivnwtkhi28[address] [place] [address]Dr. Farhat Leal CULTURE OTHER Normal [facility] Comment on above: Performed By: #### O THCX ####[facility] Luorrcdlig5252 [place] [phone]. Farhat Leal CULTURE WOUNDon 11-27-2021 CULTURE WOUND Normal [facility] Comment on above: Performed By: #### W OUNDCX ####[facility] Powcztxkqq5546 [place] [phone]. Farhat Leal POINT OF CARE GLUCOSEon 11-15 Glucose [Mass/Vol] 147 mg/dL Critically high 74-106 [facility] Comment on above: Performed By: #### P OCGLUC ####[facility] Dbevinlmhy27[address] [place], [place] [address]Dr. Farhat Elvis PROF 14(COMP METB)on 022 Albumin [Mass/Vol] 1.4 g/dL Critically low 3.4-5.0 [facility] Comment on above: Performed By: #### B SOLE LEVELING MACHINE OPERATOR, CMP, CRP ####[facility] Zornrxickp12[address] [place] [address]Dr. Farhat Leal Albumin/Globulin [Mass ratio] 0.4 {ratio} Normal [facility] Comment on above: Performed By: #### B SOLE LEVELING MACHINE OPERATOR, CMP, CRP ####[facility] Exxkdtzutw98[address] [place] [address]Dr. Farhat Leal ALP [Catalytic activity/Vol] 82 U/L Normal 46-116 [facility] Comment on above: Performed By: #### B SOLE LEVELING MACHINE OPERATOR, CMP, CRP ####[facility] Eijyzkjkaw07[address] [place] [address]Dr. Farhat Leal ALT [Catalytic activity/Vol] 22 U/L Normal 16-63 [facility] Comment on above: Performed By: #### B SOLE LEVELING MACHINE OPERATOR, CMP, CRP ####[facility] Isqcosyryx88[address] [place] [address]Dr. Farhat Leal Anion gap [Moles/Vol] 14.2 mmol/L Normal [facility] Comment on above: Performed By: #### B SOLE LEVELING MACHINE OPERATOR, CMP, CRP ####[facility] Dwueajvblc4596 [place] [address]Dr. Farhat Leal AST [Catalytic activity/Vol] 35 U/L Normal 15-37 [facility] Comment on above: Performed By: #### B SOLE LEVELING MACHINE OPERATOR, CMP, CRP ####[facility] Jlcjucqqqp96[address] [place], [place] [address]Dr. Farhat Leal Bilirubin [Mass/Vol] 0.7 mg/dL Normal 0.2-1.0 [facility] Comment on above: Performed By: #### B SOLE LEVELING MACHINE OPERATOR, CMP, CRP ####[facility] Uepznjubcp3734 [place] [phone]. Farhat Leal Calcium [Mass/Vol] 8.2 mg/dL Critically low 8.5-10.1 [facility] Comment on above: Performed By: #### B SOLE LEVELING MACHINE OPERATOR, CMP, CRP ####[facility] Ytdanuplrg1866 [place] [phone]. Farhat Leal Chloride [Moles/Vol] 99 mmol/L Normal 98-107 [facility] Comment on above: Performed By: #### B SOLE LEVELING MACHINE OPERATOR, CMP, CRP ####[facility] Fvizplnzwo0295 [place] [address]Dr. Farhat Leal CO2 [Moles/Vol] 22.6 mmol/L Normal 21.0-32.0 [facility] Comment on above: Performed By: #### B SOLE LEVELING MACHINE OPERATOR, CMP, CRP ####[facility] Cptvvkfqay0198 [place] [address]Dr. Farhat Leal Creatinine [Mass/Vol] 1.73 mg/dL Critically high 0.70-1.30 [facility] Comment on above: Performed By: #### B SOLE LEVELING MACHINE OPERATOR, CMP, CRP ####[facility] Eyipeaijse38[address] [place], [place] [address]Dr. Farhat Leal EGFR-AF GEORGIAN 47 mL/min/1.73m2 Critically low >=60 [facility] Comment on above: Performed By: #### B SOLE LEVELING MACHINE OPERATOR, CMP, CRP ####[facility] Iboriemofi08[address] [place], [place] [address]Dr. Farhat Leal EGFR-NON AF GEORGIAN 38 mL/min/1.73m2 Critically low >=60 [facility] Comment on above: Performed By: #### B SOLE LEVELING MACHINE OPERATOR, CMP, CRP ####[facility] Bbngrsgthl336[address] [place], [place] [address]Dr. Farhat Leal Globulin (S) [Mass/Vol] 3.7 g/dL Normal [facility] Comment on above: Performed By: #### B SOLE LEVELING MACHINE OPERATOR, CMP, CRP ####[facility] Cormtzyyzz6654 [place] [address]Dr. Farhat Leal Glucose [Mass/Vol] 220 mg/dL Critically high 74-[address] [facility] Comment on above: Performed By: #### B SOLE LEVELING MACHINE OPERATOR, CMP, CRP ####[facility] Ocfqgiulwu657[address] [place], [place] [address]Dr. Farhat Leal Potassium [Moles/Vol] 3.8 mmol/L Normal 3.5-5.1 [facility] Comment on above: Performed By: #### B SOLE LEVELING MACHINE OPERATOR, CMP, CRP ####[facility] Dngumqxqlq3848 [place] [address]Dr. Farhat Leal Protein [Mass/Vol] 5.1 g/dL Critically low 6.4-8.2 [facility] Comment on above: Performed By: #### B SOLE LEVELING MACHINE OPERATOR, CMP, CRP ####[facility] Fkpmuohxod1997 [place] [address]Dr. Farhat Leal Sodium [Moles/Vol] 132 mmol/L Critically low 136-145 [facility] Comment on above: Performed By: #### B SOLE LEVELING MACHINE OPERATOR, CMP, CRP ####[facility] Kdnfqampdr3518 [place] [address]Dr. Farhat Leal Urea nitrogen [Mass/Vol] 49.0 mg/dL Critically high 7.0-18.0 [facility] Comment on above: Performed By: #### B SOLE LEVELING MACHINE OPERATOR, CMP, CRP ####[facility] Pbddktlqxj70[address] [place], [place] [address]Dr. Farhat Leal Urea nitrogen/Creatinine [Mass ratio] 28.3 mg/mg Normal [facility] Comment on above: Performed By: #### B SOLE LEVELING MACHINE OPERATOR, CMP, CRP ####[facility] Zqzxocdkvf0612 [place] [address]Dr. Farhat Leal PROTIMEon 11-27-2021 INR Coag (PPP) [Relative time] 1.25 {INR} Normal [facility] Comment on above: Performed By: #### P T ####[facility] Rxzvcayxvb2267[address] [place], [place] [address]Dr. Farhat Leal INR GUIDELINES SEE BELOW Normal [facility] Comment on above: Result Comment: MALINA RED INR: 2.0 - 3.0 CONDITIONS NOT LISTED BELOW 2.5 - 3.5 FOR PROSTHETIC HEART VALVE REPLACEMENT 2.5 - 3.5 RECURRENT THROMBOSIS Performed By: #### P T ####[facility] Vigcywhrdg20[address] [place], [place] [address]Dr. Farhat Leal PT Coag (PPP) [Time] 13.3 s Critically high 9.0-11.6 [facility] Comment on above: Performed By: #### P T ####[facility] Ceyvzlmxta[address] [place], [place] [id number]. Farhat Leal SED RATE WESTERGRENon 2021 SED RATE 60 mm/hr Critically high <=20 [facility] Comment on above: Performed By: #### S EDR ####[facility] Uniexhaglu130[address] [place], [place] [address]Dr. Farhat Leal VANCOMYCIN TROUGHon 11-28-19 VANCOMYCIN TROUGH 21.2 ug/ml Critically high 5.0-20.0 Th e [facility] Comment on above: Performed By: #### V ANCT ####[facility] Knolpwhkdo[address] [place], [place] [address]Dr. Farhat Leal XR CHEST 1 Von 11-27-2021 XR CHEST 1 V Normal [facility] BNPon 11-26-2021 Natriuretic peptide B (Bld) [Mass/Vol] 25722.0 pg/mL Critically high <=1,800.0 [facility] Comment on above: Performed By: #### B SOLE LEVELING MACHINE OPERATOR, CRP, CMP ####[facility] Ylwxajdyri945[address] [place], [place] [address]Dr. Farhat Leal CBC AUTO DIFFon 11-26-2021 BASO # 0.0 103/ul Normal 0.0-0.1 [facility] Comment on above: Performed By: #### C BC ####[facility] Jdihyrnjfs[address] [place], [place] [address]Dr. Farhat Leal Basophils/100 WBC (Bld) 0.2 % Normal 0.2-2.0 [facility] Comment on above: Performed By: #### C BC ####[facility] Dznbwjkqam39[address] [place], [place] [address]Dr. Farhat Leal EO # 0.0 103/ul Normal 0.0-0.7 [facility] Comment on above: Performed By: #### C BC ####[facility] Xvbjbpjwrb534[address] [place], [place] [address]Dr. Farhat Leal Eosinophils/100 WBC (Bld) 0.3 % Critically low 0.9-7.0 [facility] Comment on above: Performed By: #### C BC ####[facility] Yxpuvlonvc0775[address] [place], [place] [address]Dr. Farhat Leal Erythrocyte distribution width (RBC) [Ratio] 13.9 % Normal 11.0-15.0 [facility] Comment on above: Performed By: #### C BC ####[facility] Ponibfwofu364[address] [place], [place] [address]Dr. Farhat Leal Hematocrit (Bld) [Volume fraction] 27.3 % Critically low 42.0-54.0 [facility] Comment on above: Performed By: #### C BC ####[facility] Ltatqyfnhb613[address] [place], [place] [address]Dr. Farhat Leal Hemoglobin (Bld) [Mass/Vol] 8.8 g/dL Critically low 14.0-18.0 [facility] Comment on above: Performed By: #### C BC ####[facility] Wmsulzbywf8489[address] [place], [place] [address]Dr. Farhat Leal IG # 0.17 10e3/ul Critically high 0.00-0.03 [facility] Comment on above: Performed By: #### C BC ####[facility] Ckrcsdslpn310[address] [place], [place] [address]Dr. Farhat Elvis IG % 1.2 % Critically high 0.0-0.5 [facility] Comment on above: Performed By: #### C BC ####[facility] Onbsisxuot910[address] [place], [place] [address]Dr. Farhat Leal LYMPH # 0.7 103/ul Critically low 1.2-3.8 [facility] Comment on above: Performed By: #### C BC ####[facility] Hahbcqxaij827[address] [place], [place] [address]Dr. Madelynlorri Leal Lymphocytes/100 WBC (Bld) 4.8 % Critically low 20.5-60.0 [facility] Comment on above: Performed By: #### C BC ####[facility] Tklfigmbtb6224[address] [place], [place] [address]Dr. Farhat Leal MANUAL DIFF REQ NO Normal [facility] Comment on above: Performed By: #### C BC ####[facility] Vfwvqswarc4984 [place] [address]Dr. Farhat Leal MCH (RBC) [Entitic mass] 29.9 pg Normal 25.9-34.0 [facility] Comment on above: Performed By: #### C BC ####[facility] Yhsbtzwezo2[address] [place], [place] [address]Dr. Farhat Leal MCHC (RBC) [Mass/Vol] 32.2 g/dL Normal 29.9-35.2 [facility] Comment on above: Performed By: #### C BC ####[facility] Puimlifdsd4681 [place] [phone]. Farhat Leal MCV (RBC) [Entitic vol] 92.9 fL Normal 80.0-94.0 [facility] Comment on above: Performed By: #### C BC ####[facility] Etobnalmrf[address] [place], [place] [address]Dr. Farhat Elvis MONO # 1.3 103/ul Critically high 0.3-0.8 [facility] Comment on above: Performed By: #### C BC ####[facility] Oxnfqrseid0314[address] [place], [place] [address]Dr. Farhat Elvis Monocytes/100 WBC (Bld) 9.6 % Normal 1.7-12.0 [facility] Comment on above: Performed By: #### C BC ####[facility] Ibycflgegv5[address] [place], [place] [address]Dr. Farhat Leal NEUT # 11.4 103/ul Critically high 1.4-6.5 [facility] Comment on above: Performed By: #### C BC ####[facility] Mmnpmzxjut[address] [place], [place] [id number]. Farhat Elvis Neutrophils/100 WBC (Bld) 83.9 % Critically high 43.0-75.0 [facility] Comment on above: Performed By: #### C BC ####[facility] Ecuvxfnlla44[address] [place], [place] [address]Dr. Farhat Leal Platelet mean volume (Bld) [Entitic vol] 9.6 fL Normal 9.5-13.5 [facility] Comment on above: Performed By: #### C BC ####[facility] Piphftzocr3386 [place] [phone]. Farhat Leal PLT 395 103/ul Normal 150-450 [facility] Comment on above: Performed By: #### C BC ####[facility] Lsibmspkcz7729 [place] [phone]. Farhat Leal RBC 2.94 106/ul Critically low 4.70-6.10 [facility] Comment on above: Performed By: #### C BC ####[facility] Aqmcuqlpez4897 [place] [phone]. Farhat Leal WBC 13.6 103/ul Critically high 4.0-11.0 [facility] Comment on above: Performed By: #### C BC ####[facility] Ahhoepjdqv4543 [place] [address]Dr. Farhat Leal CRPon 11-26-2021 CRP [Mass/Vol] mg/L Critically high <=1.0 [facility] Comment on above: Performed By: #### B SOLE LEVELING MACHINE OPERATOR, CRP, CMP ####[facility] Eijnxthkrp0114 [place] [address]Dr. Farhat Leal PROF 14(COMP METB)on 022 Albumin [Mass/Vol] 1.5 g/dL Critically low 3.4-5.0 [facility] Comment on above: Performed By: #### B SOLE LEVELING MACHINE OPERATOR, CRP, CMP ####[facility] Mairsdyqlq0907 [place] [address]Dr. Farhat Leal Albumin/Globulin [Mass ratio] 0.4 {ratio} Normal [facility] Comment on above: Performed By: #### B SOLE LEVELING MACHINE OPERATOR, CRP, CMP ####[facility] Ducuavwxdz9130 [place] [address]Dr. Farhat Leal ALP [Catalytic activity/Vol] 88 U/L Normal 46-116 [facility] Comment on above: Performed By: #### B SOLE LEVELING MACHINE OPERATOR, CRP, CMP ####[facility] Cotwbckmiv4133 [place] [address]Dr. Farhat Leal ALT [Catalytic activity/Vol] 29 U/L Normal 16-63 [facility] Comment on above: Performed By: #### B SOLE LEVELING MACHINE OPERATOR, CRP, CMP ####[facility] Jgimwiqgjk4093 [place] [address]Dr. Farhat Leal Anion gap [Moles/Vol] 13.3 mmol/L Normal [facility] Comment on above: Performed By: #### B SOLE LEVELING MACHINE OPERATOR, CRP, CMP ####[facility] Raierbgxve[address] [place], [place] [address]Dr. Farhat Leal AST [Catalytic activity/Vol] 32 U/L Normal 15-37 [facility] Comment on above: Performed By: #### B SOLE LEVELING MACHINE OPERATOR, CRP, CMP ####[facility] Ptpqhjwdrd232[address] [place], [place] [address]Dr. Farhat Leal Bilirubin [Mass/Vol] 0.6 mg/dL Normal 0.2-1.0 [facility] Comment on above: Performed By: #### B SOLE LEVELING MACHINE OPERATOR, CRP, CMP ####[facility] Bjihoqsmvl9[address] [place], [place] [address]Dr. Farhat Leal Calcium [Mass/Vol] 8.0 mg/dL Critically low 8.5-10.1 [facility] Comment on above: Performed By: #### B SOLE LEVELING MACHINE OPERATOR, CRP, CMP ####[facility] Ujkoujieas764[address] [place], [place] [address]Dr. Farhat Leal Chloride [Moles/Vol] 98 mmol/L Normal 98-107 [facility] Comment on above: Performed By: #### B SOLE LEVELING MACHINE OPERATOR, CRP, CMP ####[facility] Iwsdxljluq39[address] [place], [place] [address]Dr. Farhat Leal CO2 [Moles/Vol] 23.7 mmol/L Normal 21.0-32.0 [facility] Comment on above: Performed By: #### B SOLE LEVELING MACHINE OPERATOR, CRP, CMP ####[facility] Mtdyjqtzpw[address] [place], [place] [address]Dr. Farhat Leal Creatinine [Mass/Vol] 2.08 mg/dL Critically high 0.70-1.30 [facility] Comment on above: Performed By: #### B SOLE LEVELING MACHINE OPERATOR, CRP, CMP ####[facility] Xyduapuhzy11[address] [place] [phone]. Farhat Leal EGFR-AF GEORGIAN 38 mL/min/1.73m2 Critically low >=60 [facility] Comment on above: Performed By: #### B SOLE LEVELING MACHINE OPERATOR, CRP, CMP ####[facility] Jckgueqxqu8711 [place] [address]Dr. Farhat Leal EGFR-NON AF GEORGIAN 31 mL/min/1.73m2 Critically low >=60 [facility] Comment on above: Performed By: #### B SOLE LEVELING MACHINE OPERATOR, CRP, CMP ####[facility] Qiacmqdyxb7483 [place] [address]Dr. Farhat Leal Globulin (S) [Mass/Vol] 3.7 g/dL Normal [facility] Comment on above: Performed By: #### B SOLE LEVELING MACHINE OPERATOR, CRP, CMP ####[facility] Akacvquwmm5186 [place] [address]Dr. Farhat Elvis Glucose [Mass/Vol] 315 mg/dL Critically high 74-106 [facility] Comment on above: Performed By: #### B SOLE LEVELING MACHINE OPERATOR, CRP, CMP ####[facility] Sjmdutrmwn[address] [place], [place] [address]Dr. Farhat Leal Potassium [Moles/Vol] 4.0 mmol/L Normal 3.5-5.1 [facility] Comment on above: Performed By: #### B SOLE LEVELING MACHINE OPERATOR, CRP, CMP ####[facility] Dstgxxtvvi4[address] [place], [place] [address]Dr. Farhat Leal Protein [Mass/Vol] 5.2 g/dL Critically low 6.4-8.2 [facility] Comment on above: Performed By: #### B SOLE LEVELING MACHINE OPERATOR, CRP, CMP ####[facility] Ktskvocvfi4[address] [place], [place] [address]Dr. Farhat Leal Sodium [Moles/Vol] 131 mmol/L Critically low 136-145 [facility] Comment on above: Performed By: #### B SOLE LEVELING MACHINE OPERATOR, CRP, CMP ####[facility] Arjhqhpptt3780 [place] [address]Dr. Farhat Leal Urea nitrogen [Mass/Vol] 50.0 mg/dL Critically high 7.0-18.0 [facility] Comment on above: Performed By: #### B SOLE LEVELING MACHINE OPERATOR, CRP, CMP ####[facility] Vymkbnkgia[address] [place], [place] [address]Dr. Farhat Leal Urea nitrogen/Creatinine [Mass ratio] 24.0 mg/mg Normal [facility] Comment on above: Performed By: #### B SOLE LEVELING MACHINE OPERATOR, CRP, CMP ####[facility] Qnrpzzfnky[address] [place], [place] [address]Dr. Farhat Leal PROTIMEon 11-26-2021 INR Coag (PPP) [Relative time] 1.31 {INR} Normal [facility] Comment on above: Performed By: #### P T ####[facility] Fbmqgojlpr23[address] [place], [place] [address]Dr. Farhat Leal INR GUIDELINES SEE BELOW Normal [facility] Comment on above: Result Comment: MALINA RED INR: 2.0 - 3.0 CONDITIONS NOT LISTED BELOW 2.5 - 3.5 FOR PROSTHETIC HEART VALVE REPLACEMENT 2.5 - 3.5 RECURRENT THROMBOSIS Performed By: #### P T ####[facility] Vdeavcbcsh[address] [place], [place] [address]Dr. Farhat Leal PT Coag (PPP) [Time] 13.9 s Critically high 9.0-11.6 [facility] Comment on above: Performed By: #### P T ####[facility] Qtemtxjrow[address] [place], [place] [address]Dr. Farhat Leal SED RATE LEWISTON WOODVILLEERGREN 2021 SED RATE 87 mm/hr Critically high <=20 [facility] Comment on above: Performed By: #### S EDR ####[facility] Bzyxkpczse[address] [place], [place] [address]Dr. Farhat Leal BNPon 11-25-2021 Natriuretic peptide B (Bld) [Mass/Vol] 03413.0 pg/mL Critically high <=1,800.0 [facility] Comment on above: Performed By: #### C MP, BNP, CRP ####[facility] Toxhjaftcm99[address] [place], [place] [address]Dr. Farhat Leal CBC AUTO DIFFon 11-25-2021 BASO # 0.0 103/ul Normal 0.0-0.1 [facility] Comment on above: Performed By: #### C BC ####[facility] Owwbhvnslv0539[address] [place], [place] [address]Dr. Farhat Leal Basophils/100 WBC (Bld) 0.4 % Normal 0.2-2.0 [facility] Comment on above: Performed By: #### C BC ####[facility] Acbofgnvzk14[address] [place], [place] [address]Dr. Farhat Leal EO # 0.1 103/ul Normal 0.0-0.7 [facility] Comment on above: Performed By: #### C BC ####[facility] Mqaeegtoez69[address] [place], [place] [address]Dr. Farhat Leal Eosinophils/100 WBC (Bld) 1.2 % Normal 0.9-7.0 [facility] Comment on above: Performed By: #### C BC ####[facility] Pajxfvvdww1216[address] [place], [place] [address]Dr. Farhat Leal Erythrocyte distribution width (RBC) [Ratio] 13.7 % Normal 11.0-15.0 [facility] Comment on above: Performed By: #### C BC ####[facility] Fuqxdvehgl[address] [place], [place] [address]Dr. Farhat Leal Hematocrit (Bld) [Volume fraction] 29.6 % Critically low 42.0-54.0 [facility] Comment on above: Performed By: #### C BC ####[facility] Resdtxshre3049[address] [place], [place] [address]Dr. Farhat Leal Hemoglobin (Bld) [Mass/Vol] 9.3 g/dL Critically low 14.0-18.0 [facility] Comment on above: Performed By: #### C BC ####[facility] Aikgedtdvn7[address] [place], [place] [address]Dr. Madelynlorri Leal IG # 0.15 10e3/ul Critically high 0.00-0.03 [facility] Comment on above: Performed By: #### C BC ####[facility] [address]ogaelawhf[address] [place] [id number]. Farhat Leal IG % 1.4 % Critically high 0.0-0.5 The [facility] Comment on above: Performed By: #### C BC ####[facility] Hjkdjwkrza10[address] [place] [id number]. Farhat Elvis LYMPH # 0.8 103/ul Critically low 1.2-3.8 The [facility] Comment on above: Performed By: #### C BC ####[facility] L[address]kelfvvt[address] [place] [address]Dr. Farhat Elvis Lymphocytes/100 WBC (Bld) 7.3 % Critically low 20.5-60.0 [facility] Comment on above: Performed By: #### C BC ####[facility] Vowwysbyhm[address] [place] [address]Dr. Farhat Leal MANUAL DIFF REQ NO Normal [facility] Comment on above: Performed By: #### C BC ####[facility] Zzwybfkezd[address] [place] [address]Dr. Farhat Elvis MCH (RBC) [Entitic mass] 29.3 pg Normal 25.9-34.0 [facility] Comment on above: Performed By: #### C BC ####[facility] Vbwurmmzju1445[address] [place], [place] [address]Dr. Farhat Leal MCHC (RBC) [Mass/Vol] 31.4 g/dL Normal 29.9-35.2 [facility] Comment on above: Performed By: #### C BC ####[facility] Hyuwfccyec[address] [place] [address]Dr. Farhat Elvis MCV (RBC) [Entitic vol] 93.4 fL Normal 80.0-94.0 [facility] Comment on above: Performed By: #### C BC ####[facility] Lolvacrfpw[address] [place], [place] [address]Dr. Farhat Leal MONO # 1.3 103/ul Critically high 0.3-0.8 [facility] Comment on above: Performed By: #### C BC ####[facility] Uyurlojins[address] [place] [id number]. Farhat Leal Monocytes/100 WBC (Bld) 12.3 % Critically high 1.7-12.0 [facility] Comment on above: Performed By: #### C BC ####[facility] Clznyebcjd[address] [place] [address]Dr. Farhat Leal NEUT # 8.4 103/ul Critically high 1.4-6.5 [facility] Comment on above: Performed By: #### C BC ####[facility] Qxafhwdaqm8001 [place] [address]Dr. Farhat Leal Neutrophils/100 WBC (Bld) 77.4 % Critically high 43.0-75.0 [facility] Comment on above: Performed By: #### C BC ####[facility] Lanwcelzwj5729[address] [place], [place] [address]Dr. Farhat Leal Platelet mean volume (Bld) [Entitic vol] 9.8 fL Normal 9.5-13.5 [facility] Comment on above: Performed By: #### C BC ####[facility] Vthkiqezki[address] [place], [place] [address]Dr. Farhat Leal PLT 390 103/ul Normal 150-450 [facility] Comment on above: Performed By: #### C BC ####[facility] Yauscdhlad7967[address] [place], [place] [address]Dr. Farhat Leal RBC 3.17 106/ul Critically low 4.70-6.10 [facility] Comment on above: Performed By: #### C BC ####[facility] Kxleajvnas95[address] [place] [id number]. Farhat Leal WBC 10.9 103/ul Normal 4.0-11.0 [facility] Comment on above: Performed By: #### C BC ####[facility] Ugjxdfxeif495[address] [place], [place] [address]Dr. Farhat Leal CRPon 11-25-2021 CRP 27.2 mg/dL Critically high <=1.0 The [facility] Comment on above: Performed By: #### C MP, BNP, CRP ####[facility] Idsetmuhnz022[address] [place] [address]Dr. Farhat Leal PROF 14(COMP METB)on 022 Albumin [Mass/Vol] 1.5 g/dL Critically low 3.4-5.0 [facility] Comment on above: Performed By: #### C MP, BNP, CRP ####[facility] Opndmfokbn5938 [place] [address]Dr. Farhat Leal Albumin/Globulin [Mass ratio] 0.4 {ratio} Normal [facility] Comment on above: Performed By: #### C MP, BNP, CRP ####[facility] Vtrctxdver8745 [place] [address]Dr. Farhat Leal ALP [Catalytic activity/Vol] 86 U/L Normal 46-116 [facility] Comment on above: Performed By: #### C MP, BNP, CRP ####[facility] Uhefgctynf1896 [place] [address]Dr. Farhat Leal ALT [Catalytic activity/Vol] 34 U/L Normal 16-63 [facility] Comment on above: Performed By: #### C MP, BNP, CRP ####[facility] Rgpqootvlg4446 [place] [address]Dr. Farhat Leal Anion gap [Moles/Vol] 17.8 mmol/L Normal [facility] Comment on above: Performed By: #### C MP, BNP, CRP ####[facility] Zkglkfsmeu2284 [place] [address]Dr. Farhat Leal AST [Catalytic activity/Vol] 48 U/L Critically high 15-37 [facility] Comment on above: Performed By: #### C MP, BNP, CRP ####[facility] Krqyfrldwb3001 [place] [address]Dr. Farhat Leal Bilirubin [Mass/Vol] 0.8 mg/dL Normal 0.2-1.0 [facility] Comment on above: Performed By: #### C MP, BNP, CRP ####[facility] Ogmkztzvhb08[address] [place] [address]Dr. Farhat Leal Calcium [Mass/Vol] 8.3 mg/dL Critically low 8.5-10.1 Th e [facility] Comment on above: Performed By: #### C MP, BNP, CRP ####[facility] Anaeoskgss668[address] [place] [address]Dr. Farhat Leal Chloride [Moles/Vol] 97 mmol/L Critically low 98-107 [facility] Comment on above: Performed By: #### C MP, BNP, CRP ####[facility] Ogoviqsjqn8161 [place] [address]Dr. Farhat Leal CO2 [Moles/Vol] 23.0 mmol/L Normal 21.0-32.0 [facility] Comment on above: Performed By: #### C MP, BNP, CRP ####[facility] Ztkibwlwlr390[address] [place], [place] [address]Dr. Farhat Leal Creatinine [Mass/Vol] 1.68 mg/dL Critically high 0.70-1.30 [facility] Comment on above: Performed By: #### C MP, BNP, CRP ####[facility] Npyvxpxvsw375[address] [place], [place] [address]Dr. Farhat Elvis EGFR-AF GEORGIAN 48 mL/min/1.73m2 Critically low >=60 [facility] Comment on above: Performed By: #### C MP, BNP, CRP ####[facility] Zbrpnfakbh2140 [place] [address]Dr. Farhat Leal EGFR-NON AF GEORGIAN 40 mL/min/1.73m2 Critically low >=60 [facility] Comment on above: Performed By: #### C MP, BNP, CRP ####[facility] Xpvpugyenz3688 [place] [address]Dr. Madelynlorri Leal Globulin (S) [Mass/Vol] 3.9 g/dL Normal [facility] Comment on above: Performed By: #### C MP, BNP, CRP ####[facility] Wfxcnwnnpf1393 [place] [address]Dr. Farhat Leal Glucose [Mass/Vol] 282 mg/dL Critically high 74-106 [facility] Comment on above: Performed By: #### C MP, BNP, CRP ####[facility] Cjsuqlixxz4582 [place] [address]Dr. Farhat Leal Potassium [Moles/Vol] 4.8 mmol/L Normal 3.5-5.1 [facility] Comment on above: Performed By: #### C MP, BNP, CRP ####[facility] Lzzsgraepm1313 [place] [address]Dr. Farhat Leal Protein [Mass/Vol] 5.4 g/dL Critically low 6.4-8.2 Th [facility] Comment on above: Performed By: #### C MP, BNP, CRP ####[facility] Mstkxyrqjf3928[address] [place], [place] [address]Dr. Farhat Leal Sodium [Moles/Vol] 133 mmol/L Critically low 136-145 Th [facility] Comment on above: Performed By: #### C MP, BNP, CRP ####[facility] Lgenklyhai614[address] [place], [place] [address]Dr. Farhat Leal Urea nitrogen [Mass/Vol] 40.0 mg/dL Critically high 7.0-18.0 [facility] Comment on above: Performed By: #### C MP, BNP, CRP ####[facility] Dycuenbedj1850[address] [place], [place] [address]Dr. Farhat Leal Urea nitrogen/Creatinine [Mass ratio] 23.8 mg/mg Normal [facility] Comment on above: Performed By: #### C MP, BNP, CRP ####[facility] Xvtbwglmdd988[address] [place], [place] [address]Dr. Farhat Leal PROTIMEon 11-25-2021 INR Coag (PPP) [Relative time] 1.48 {INR} Normal [facility] Comment on above: Performed By: #### P T ####[facility] Itfkvabwyw2085[address] [place], [place] [address]Dr. Farhat Leal INR GUIDELINES SEE BELOW Normal [facility] Comment on above: Result Comment: MALINA RED INR: 2.0 - 3.0 CONDITIONS NOT LISTED BELOW 2.5 - 3.5 FOR PROSTHETIC HEART VALVE REPLACEMENT 2.5 - 3.5 RECURRENT THROMBOSIS Performed By: #### P T ####[facility] Skzrtzheir780[address] [place], [place] [address]Dr. Farhat Leal PT Coag (PPP) [Time] 15.6 s Critically high 9.0-11.6 [facility] Comment on above: Performed By: #### P T ####[facility] Ilqafhghor0544[address] [place], [place] [address]Dr. Farhat Leal SED RATE WESTERGRENon 2021 SED RATE 76 mm/hr Critically high <=20 The [facility] Comment on above: Performed By: #### S EDR ####[facility] Ggycaplpic7101[address] [place], [place] [address]Dr. Farhat Leal BNPon 11-24-2021 Natriuretic peptide B (Bld) [Mass/Vol] 43307.0 pg/mL Critically high <=1,800.0 [facility] Comment on above: Performed By: #### B SOLE LEVELING MACHINE OPERATOR, CMP, CRP ####[facility] Ymgnjrayxj560[address] [place], [place] [address]Dr. Farhat Leal CBC AUTO DIFFon 11-24-2021 BASO # 0.0 103/ul Normal 0.0-0.1 [facility] Comment on above: Performed By: #### C BC ####[facility] Bldjnwxuaf2015[address] [place], [place] [address]Dr. Farhat Leal Basophils/100 WBC (Bld) 0.3 % Normal 0.2-2.0 [facility] Comment on above: Performed By: #### C BC ####[facility] Hrqurcvfbm185[address] [place], [place] [address]Dr. Farhat Leal EO # 0.2 103/ul Normal 0.0-0.7 [facility] Comment on above: Performed By: #### C BC ####[facility] Moxsbmergu027[address] [place], [place] [address]Dr. Farhat Leal Eosinophils/100 WBC (Bld) 1.2 % Normal 0.9-7.0 [facility] Comment on above: Performed By: #### C BC ####[facility] Hfqnqyufgk432[address] [place], [place] [address]Dr. Farhat Leal Erythrocyte distribution width (RBC) [Ratio] 13.5 % Normal 11.0-15.0 [facility] Comment on above: Performed By: #### C BC ####[facility] Ncmapwpoch0681 [place] [address]DrSkylar Leal Hematocrit (Bld) [Volume fraction] 31.1 % Critically low 42.0-54.0 [facility] Comment on above: Performed By: #### C BC ####[facility] Ojkguzhgho0935[address] [place], [place] [address]DrSkyalr Leal Hemoglobin (Bld) [Mass/Vol] 10.0 g/dL Critically low 14.0-18.0 [facility] Comment on above: Performed By: #### C BC ####[facility] Vvgfqfdyil350[address] [place], [place] [address]DrSkylar Leal IG # 0.13 10e3/ul Critically high 0.00-0.03 [facility] Comment on above: Performed By: #### C BC ####[facility] Lnhzgzhxsc9605[address] [place], [place] [address]DrSkylar Leal IG % 1.0 % Critically high 0.0-0.5 [facility] Comment on above: Performed By: #### C BC ####[facility] Bhmemurwse956[address] [place], [place] [address]DrSkylar Leal LYMPH # 0.7 103/ul Critically low 1.2-3.8 [facility] Comment on above: Performed By: #### C BC ####[facility] Zctszusegd8424[address] [place], [place] [address]DrSkylar Leal Lymphocytes/100 WBC (Bld) 4.9 % Critically low 20.5-60.0 [facility] Comment on above: Performed By: #### C BC ####[facility] Ydjrluyavo216[address] [place], [place] [address]DrSkylar Leal MANUAL DIFF REQ NO Normal [facility] Comment on above: Performed By: #### C BC ####[facility] Vibmjxhhpr0189[address] [place], [place] [address]DrSkylar Leal MCH (RBC) [Entitic mass] 29.6 pg Normal 25.9-34.0 [facility] Comment on above: Performed By: #### C BC ####[facility] Dbfpfekmii6341 [place] [address]Dr. Farhat Elvis MCHC (RBC) [Mass/Vol] 32.2 g/dL Normal 29.9-35.2 [facility] Comment on above: Performed By: #### C BC ####[facility] Zffmilfpvi620[address] [place], [place] [address]Dr. Farhat Leal MCV (RBC) [Entitic vol] 92.0 fL Normal 80.0-94.0 [facility] Comment on above: Performed By: #### C BC ####[facility] Fkzuprtzhx8[address] [place], [place] [address]Dr. Farhat Leal MONO # 1.3 103/ul Critically high 0.3-0.8 [facility] Comment on above: Performed By: #### C BC ####[facility] Kwzeojmhdb3630[address] [place], [place] [address]Dr. Farhat Leal Monocytes/100 WBC (Bld) 9.6 % Normal 1.7-12.0 [facility] Comment on above: Performed By: #### C BC ####[facility] Nteephxovq3620[address] [place], [place] [address]Dr. Farhat Leal NEUT # 11.2 103/ul Critically high 1.4-6.5 The [facility] Comment on above: Performed By: #### C BC ####[facility] Qvxyqiyoyl9929[address] [place], [place] [address]Dr. Farhat Leal Neutrophils/100 WBC (Bld) 83.0 % Critically high 43.0-75.0 [facility] Comment on above: Performed By: #### C BC ####[facility] Gfwlgznpyo839[address] [place], [place] [address]Dr. Farhat Leal Platelet mean volume (Bld) [Entitic vol] 9.5 fL Normal 9.5-13.5 [facility] Comment on above: Performed By: #### C BC ####[facility] Egyohtrtkr8887 [place] [id number]. Farhat Leal PLT 395 103/ul Normal 150-450 [facility] Comment on above: Performed By: #### C BC ####[facility] Oalwyjwcps[address] [place], [place] [address]Dr. Farhat Leal RBC 3.38 106/ul Critically low 4.70-6.10 [facility] Comment on above: Performed By: #### C BC ####[facility] Frxguwolzc078[address] [place], [place] [address]Dr. Farhat Leal WBC 13.4 103/ul Critically high 4.0-11.0 [facility] Comment on above: Performed By: #### C BC ####[facility] Qtaobuvmvf74[address] [place], [place] [address]Dr. Farhat Leal CRPon 11-24-2021 CRP 27.8 mg/dL Critically high <=1.0 [facility] Comment on above: Performed By: #### B SOLE LEVELING MACHINE OPERATOR, CMP, CRP ####[facility] Qlnalxgkcn[address] [place], [place] [address]Dr. Farhat Leal CULTURE ANAEROBICon 11-25-19 22 CULTURE ANAEROBIC Culture Observations : NO GROWTH OF ANAEROBES AT 72 HOURS. [facility] Comment on above: Performed By: #### A NACX ####[facility] Gddftblwvu06[address] [place], [place] [address]Dr. Farhat Leal CULTURE ANAEROBIC Culture Observations : NO GROWTH OF ANAEROBES AT 72 HOURS. [facility] Comment on above: Performed By: #### A NACX ####[facility] Yzcpajvcya404[address] [place], [place] [address]Dr. Farhat Leal CULTURE ANAEROBIC Culture Observations : No growth of anaerobes at 72 hours. [facility] Comment on above: Performed By: #### A NACX ####[facility] Ynyxfqfhen350[address] [place], [place] [address]Dr. Farhat Leal CULTURE ANAEROBIC Culture Observations : No growth of anaerobes at 72 hours. [facility] Comment on above: Performed By: #### A NACX ####[facility] Uvncbgudqw[address] [place], [place] [id number]. Farhat Leal CULTURE URINEon 11-24-2021 CULTURE URINE Culture Observations : NO GROWTH. Normal [facility] Comment on above: Performed By: #### U RCX ####[facility] Lstpzkyrev750[address] [place], [place] [address]Dr. Madelynlorri Elvis ECHOCARDIO M/2D COMPLETEon 1 ECHOCARDIO M/2D COMPLETE Normal [facility] ER URINE PROFILEon Bilirubin Ql (U) Negative Normal NEGATIVE [facility] Comment on above: Performed By: #### E RUR ####[facility] Dozrlqlfor950[address] [place], [place] [address]Dr. Faraht Leal Clarity (U) CLEAR Normal CLEAR [facility] Comment on above: Performed By: #### E RUR ####[facility] Tumcdjjgic318143 [address] [place], [place] [address]Dr. Farhat Leal Color (U) YELLOW Normal YELLOW [facility] Comment on above: Performed By: #### E RUR ####[facility] Imfydtesob780[address] [place], [place] [address]Dr. Farhat Leal ERUAHD A micrscopic examination will be performed if indicated. Normal [facility] Comment on above: Performed By: #### E RUR ####[facility] Pualbkyewc[address] [place], [place] [address]Dr. Farhat Leal Glucose Ql (U) Negative Normal NEGATIVE [facility] Comment on above: Performed By: #### E RUR ####[facility] Yirajwckiv190[address] [place], [place] [address]Dr. Farhat Leal Hemoglobin Ql (U) Negative Normal NEGATIVE [facility] Comment on above: Performed By: #### E RUR ####[facility] Vqkjrooiop277[address] [place], [place] [address]Dr. Farhat Leal Ketones Ql (U) TRACE Abnormal NEGATIVE [facility] Comment on above: Performed By: #### E RUR ####[facility] Cduhlhjmru060[address] [place], [place] [address]Dr. Farhat Leal LEUKOCYTES Negative Normal NEGATIVE [facility] Comment on above: Performed By: #### E RUR ####[facility] Dtjzftgoad3998 [place] [address]Dr. Farhat Leal Nitrite Ql (U) Negative Normal NEGATIVE [facility] Comment on above: Performed By: #### E RUR ####[facility] Miiolwwjhz512[address] [place], [place] [address]Dr. Farhat Leal pH (U) 5.5 [pH] Normal 5-9 [facility] Comment on above: Performed By: #### E RUR ####[facility] Stwikhgvem19[address] [place], [place] [address]Dr. Farhat Leal SPEC GRAVITY 1.015 Normal 1.005-<=1.02 5 [facility] Comment on above: Performed By: #### E RUR ####[facility] Yvjwyponex377[address] [place], [place] [address]Dr. Farhat Leal UA PROTEIN Negative Normal NEGATIVE/ TRACE [facility] Comment on above: Performed By: #### E RUR ####[facility] Awndqyjapb9[address] [place], [place] [address]Dr. Farhat Leal UR MICRO IND NOT INDICATED Normal [facility] Comment on above: Performed By: #### E RUR ####[facility] Suyzpanrjb7[address] [place], [place] [address]Dr. Farhat Leal Urobilinogen Qn (U) 0.2 {Boyd'U}/dL Normal 0.2 - 1. 0 [facility] Comment on above: Performed By: #### E RUR ####[facility] Gkztfolhnc18[address] [place], [place] [address]Dr. Farhat Leal GRAM STAINon 11-24-2021 DIPHTHEROIDS Normal [facility] Comment on above: Performed By: #### G STAIN ####[facility] Mvqebxgwcc[address] [place], [place] [address]Dr. Farhat Leal EPITHELIALS Normal [facility] Comment on above: Performed By: #### G STAIN ####[facility] Ocbnehufrg409[address] [place], [place] [address]Dr. Farhat Leal FUNGAL ELEMENTS Normal [facility] Comment on above: Performed By: #### G STAIN ####[facility] Bgdjjudyxp4781 [place] [address]Dr. Farhat Leal GRAM NEG BACILLI Normal [facility] Comment on above: Performed By: #### G STAIN ####[facility] Vkawdqlnrn[address] [place] [address]Dr. Farhat Leal GRAM NEG DIPPLOCOCCI Normal [facility] Comment on above: Performed By: #### G STAIN ####[facility] Axtmshkjvg47[address] [place] [address]Dr. Farhat Leal GRAM POS BACILLI Normal [facility] Comment on above: Performed By: #### G STAIN ####[facility] Etdnftmgeg44[address] [place], [place] [address]Dr. Farhat Leal GRAM POSITIVE COCCI FEW Normal [facility] Comment on above: Performed By: #### G STAIN ####[facility] Mjvbnorieq038[address] [place], [place] [address]Dr. Farhat Leal GRAM STAIN SOURCE RT ACHILLES TENDON Normal [facility] Comment on above: Performed By: #### G STAIN ####[facility] Dkckksiybt60[address] [place], [place] [address]Dr. Farhat Leal GS_DIPTH Normal [facility] Comment on above: Performed By: #### G STAIN ####[facility] Pxfiidlgjf69[address] [place], [place] [address]Dr. Farhat Leal WBC RARE Normal [facility] Comment on above: Performed By: #### G STAIN ####[facility] Ojidvrkmox[address] [place], [place] [address]Dr. Farhat Leal COMMENTS NO ORGANISMS OBSERVED Normal [facility] Comment on above: Performed By: #### G STAIN ####[facility] Hxhdmbicom805[address] [place], [place] [address]Dr. Farhat Leal DIPHTHEROIDS Normal [facility] Comment on above: Performed By: #### G STAIN ####[facility] Rwhgnvuohb[address] [place] [address]Dr. Farhat Leal EPITHELIALS Normal [facility] Comment on above: Performed By: #### G STAIN ####[facility] Njxufdasmd6454 [place] [phone]. Farhat Leal FUNGAL ELEMENTS Normal [facility] Comment on above: Performed By: #### G STAIN ####[facility] Xvwrxpigbk5515 [place] [phone]. Farhat Leal GRAM NEG BACILLI Normal [facility] Comment on above: Performed By: #### G STAIN ####[facility] Szjhoficqv4071 [place] [phone]. Farhat Leal GRAM NEG DIPPLOCOCCI Normal [facility] Comment on above: Performed By: #### G STAIN ####[facility] Tewjtxzthh87[address] [place] [address]Dr. Farhat Leal GRAM POS BACILLI Normal [facility] Comment on above: Performed By: #### G STAIN ####[facility] Whigmxvfka8948 [place] [address]Dr. Farhat Leal GRAM POSITIVE COCCI Normal [facility] Comment on above: Performed By: #### G STAIN ####[facility] Crvtgarlfh885[address] [place], [place] [address]Dr. Farhat Leal GRAM STAIN SOURCE RT CALCANEOUS Normal [facility] Comment on above: Performed By: #### G STAIN ####[facility] Ggvukwiquw78[address] [place] [address]Dr. Farhat Leal GS_DIPTH Normal [facility] Comment on above: Performed By: #### G STAIN ####[facility] Josewpuazi0389 [place] [address]Dr. Farhat Leal WBC RARE Normal [facility] Comment on above: Performed By: #### G STAIN ####[facility] Nwljlrsmys8440 [place] [address]Dr. Farhat Leal DIPHTHEROIDS Normal [facility] Comment on above: Performed By: #### G STAIN ####[facility] Klefulbiww5988 [place] [address]Dr. Farhat Leal EPITHELIALS Normal [facility] Comment on above: Performed By: #### G STAIN ####[facility] Dphnwuedxs4345 [place] [address]Dr. Farhat Leal FUNGAL ELEMENTS Normal [facility] Comment on above: Performed By: #### G STAIN ####[facility] Mtgpbpzjaf7145 [place] [address]Dr. Farhat Leal GRAM NEG BACILLI FEW Normal [facility] Comment on above: Performed By: #### G STAIN ####[facility] Acpmujboel6133 [place] [address]Dr. Farhat Leal GRAM NEG DIPPLOCOCCI Normal [facility] Comment on above: Performed By: #### G STAIN ####[facility] Mmliutiapg6163 [place] [address]Dr. Farhat Leal GRAM POS BACILLI Normal [facility] Comment on above: Performed By: #### G STAIN ####[facility] Ojracbuctz697[address] [place], [place] [address]Dr. Farhat Leal GRAM POSITIVE COCCI FEW Normal [facility] Comment on above: Performed By: #### G STAIN ####[facility] Bmswaetnkw801[address] [place], [place] [address]Dr. Farhat Leal GRAM STAIN SOURCE #2 Rt foot abscess Normal [facility] Comment on above: Performed By: #### G STAIN ####[facility] Cmydtrkuus833[address] [place], [place] [address]Dr. Farhat Leal GS_DIPTH Normal [facility] Comment on above: Performed By: #### G STAIN ####[facility] Fgqpjomufs4211[address] [place], [place] [address]Dr. Farhat Leal WBC RARE Normal [facility] Comment on above: Performed By: #### G STAIN ####[facility] Ssabiyggfi5108 [place] [address]Dr. Farhat Leal DIPHTHEROIDS Normal [facility] Comment on above: Performed By: #### G STAIN ####[facility] Bzgudmresc207643 [address] [place], [place] [address]Dr. Farhat Leal EPITHELIALS Normal [facility] Comment on above: Performed By: #### G STAIN ####[facility] Ekursiojoh050343 [address] [place], [place] [address]Dr. Farhat Leal FUNGAL ELEMENTS Normal [facility] Comment on above: Performed By: #### G STAIN ####[facility] Ynyhlercmr6340 [place] [address]Dr. Farhat Leal GRAM NEG BACILLI FEW Normal [facility] Comment on above: Performed By: #### G STAIN ####[facility] Kjeaiqpxfs16[address] [place] [address]Dr. Farhat Leal GRAM NEG DIPPLOCOCCI Normal [facility] Comment on above: Performed By: #### G STAIN ####[facility] Btsfudijqr8555[address] [place], [place] [address]Dr. Farhat Leal GRAM POS BACILLI Normal [facility] Comment on above: Performed By: #### G STAIN ####[facility] Qejmehnxmg516[address] [place], [place] [address]Dr. Farhat Leal GRAM POSITIVE COCCI FEW Normal [facility] Comment on above: Performed By: #### G STAIN ####[facility] Hhpihcruso4444[address] [place], [place] [address]Dr. Farhat Leal GRAM STAIN SOURCE #1 Rt foot abscess Normal [facility] Comment on above: Performed By: #### G STAIN ####[facility] Kasmwgyyth618[address] [place], [place] [address]Dr. Farhat Leal GS_DIPTH Normal [facility] Comment on above: Performed By: #### G STAIN ####[facility] Gtvdlrvhdq168[address] [place], [place] [address]Dr. Farhat Leal WBC NONE SEEN Normal [facility] Comment on above: Performed By: #### G STAIN ####[facility] Olpvkypjqp950[address] [place], [place] [address]Dr. Farhat Leal POINT OF CARE GLUCOSEon 10-1 0-2021 Glucose [Mass/Vol] 331 mg/dL Critically high 74-[address] [facility] Comment on above: Performed By: #### P OCGLUC ####[facility] Pmhnvzvzym97[address] [place] [address]Dr. Farhat Leal Glucose [Mass/Vol] 236 mg/dL Critically high 74-[address] [facility] Comment on above: Performed By: #### P OCGLUC ####[facility] Azkhwlxcjy58[address] [place] [address]Dr. Farhat Leal PROF 14(COMP METB)on 022 Albumin [Mass/Vol] 1.6 g/dL Critically low 3.4-5.0 [facility] Comment on above: Performed By: #### B SOLE LEVELING MACHINE OPERATOR, CMP, CRP ####[facility] Bpqthgdozw5359 [place] [address]Dr. Farhat Leal Albumin/Globulin [Mass ratio] 0.4 {ratio} Normal [facility] Comment on above: Performed By: #### B SOLE LEVELING MACHINE OPERATOR, CMP, CRP ####[facility] Hjllqwqvjc8[address] [place], [place] [address]Dr. Farhat Leal ALP [Catalytic activity/Vol] 94 U/L Normal 46-116 [facility] Comment on above: Performed By: #### B SOLE LEVELING MACHINE OPERATOR, CMP, CRP ####[facility] Yuttpzikcn7500[address] [place], [place] [address]Dr. Farhat Leal ALT [Catalytic activity/Vol] 49 U/L Normal 16-63 [facility] Comment on above: Performed By: #### B SOLE LEVELING MACHINE OPERATOR, CMP, CRP ####[facility] Wstokhthlk8969[address] [place], [place] [address]Dr. Farhat Leal Anion gap [Moles/Vol] 12.5 mmol/L Normal [facility] Comment on above: Performed By: #### B SOLE LEVELING MACHINE OPERATOR, CMP, CRP ####[facility] Illenmgsxe80364[address] [place], [place] [address]Dr. Farhat Leal AST [Catalytic activity/Vol] 102 U/L Critically high 15-37 [facility] Comment on above: Performed By: #### B SOLE LEVELING MACHINE OPERATOR, CMP, CRP ####[facility] Mzcztnhyct232[address] [place], [place] [address]Dr. Farhat Leal Bilirubin [Mass/Vol] 0.8 mg/dL Normal 0.2-1.0 [facility] Comment on above: Performed By: #### B SOLE LEVELING MACHINE OPERATOR, CMP, CRP ####[facility] Mfmxgajzvg388[address] [place], [place] [address]Dr. Farhat Leal Calcium [Mass/Vol] 8.4 mg/dL Critically low 8.5-10.1 [facility] Comment on above: Performed By: #### B SOLE LEVELING MACHINE OPERATOR, CMP, CRP ####[facility] Njgqwxyxei9714 [place] [address]Dr. Farhat Leal Chloride [Moles/Vol] 96 mmol/L Critically low 98-107 [facility] Comment on above: Performed By: #### B SOLE LEVELING MACHINE OPERATOR, CMP, CRP ####[facility] Ugmrmngdbc8615 [place] [address]Dr. Farhat Leal CO2 [Moles/Vol] 24.8 mmol/L Normal 21.0-32.0 [facility] Comment on above: Performed By: #### B SOLE LEVELING MACHINE OPERATOR, CMP, CRP ####[facility] Xtucihsnfp0[address] [place], [place] [address]Dr. Madelynlorri Elvis Creatinine [Mass/Vol] 1.36 mg/dL Critically high 0.70-1.30 [facility] Comment on above: Performed By: #### B SOLE LEVELING MACHINE OPERATOR, CMP, CRP ####[facility] Xwsdoejmop7645[address] [place], [place] [address]Dr. Farhat Elvis EGFR-AF GEORGIAN >60 Normal >=60 [facility] Comment on above: Performed By: #### B SOLE LEVELING MACHINE OPERATOR, CMP, CRP ####[facility] Layyczcjig15[address] [place] [address]Dr. Farhat Elvis EGFR-NON AF GEORGIAN 51 mL/min/1.73m2 Critically low >=60 [facility] Comment on above: Performed By: #### B SOLE LEVELING MACHINE OPERATOR, CMP, CRP ####[facility] Hejoictziz2160 [place] [address]Dr. Farhat Leal Globulin (S) [Mass/Vol] 4.1 g/dL Normal [facility] Comment on above: Performed By: #### B SOLE LEVELING MACHINE OPERATOR, CMP, CRP ####[facility] Gpampluldr7505 [place] [address]Dr. Farhat Leal Glucose [Mass/Vol] 204 mg/dL Critically high 74-106 [facility] Comment on above: Performed By: #### B SOLE LEVELING MACHINE OPERATOR, CMP, CRP ####[facility] Mamdmtblto6862 [place] [address]Dr. Farhat Leal Potassium [Moles/Vol] 4.3 mmol/L Normal 3.5-5.1 [facility] Comment on above: Performed By: #### B SOLE LEVELING MACHINE OPERATOR, CMP, CRP ####[facility] Vuidtlvzia8657 [place] [address]Dr. Madelynlorri Leal Protein [Mass/Vol] 5.7 g/dL Critically low 6.4-8.2 [facility] Comment on above: Performed By: #### B SOLE LEVELING MACHINE OPERATOR, CMP, CRP ####[facility] Mzvtyyrvww6574 [place] [address]Dr. Farhat Leal Sodium [Moles/Vol] 129 mmol/L Critically low 136-145 [facility] Comment on above: Performed By: #### B SOLE LEVELING MACHINE OPERATOR, CMP, CRP ####[facility] Fmveecpgdu9059[address] [place], [place] [address]Dr. Farhat Leal Urea nitrogen [Mass/Vol] 41.0 mg/dL Critically high 7.0-18.0 [facility] Comment on above: Performed By: #### B SOLE LEVELING MACHINE OPERATOR, CMP, CRP ####[facility] Oyxivafjwf332[address] [place], [place] [address]Dr. Farhat Leal Urea nitrogen/Creatinine [Mass ratio] 30.1 mg/mg Normal [facility] Comment on above: Performed By: #### B SOLE LEVELING MACHINE OPERATOR, CMP, CRP ####[facility] Irylaqfwgv340[address] [place], [place] [address]Dr. Farhat Leal PROTIMEon 11-24-2021 INR Coag (PPP) [Relative time] 2.20 {INR} Normal [facility] Comment on above: Performed By: #### P T ####[facility] Nnzqcgnmva46264[address] [place], [place] [address]Dr. Farhat Leal INR GUIDELINES SEE BELOW Normal [facility] Comment on above: Result Comment: MALINA RED INR: 2.0 - 3.0 CONDITIONS NOT LISTED BELOW 2.5 - 3.5 FOR PROSTHETIC HEART VALVE REPLACEMENT 2.5 - 3.5 RECURRENT THROMBOSIS Performed By: #### P T ####[facility] Rcqicxgamv[address] [place], [place] [address]Dr. Farhat Leal PT Coag (PPP) [Time] 22.6 s Critically high 9.0-11.6 [facility] Comment on above: Performed By: #### P T ####[facility] Oqtbqzkjig923[address] [place], [place] [address]Dr. Farhat Leal SED RATE [facility] 2021 SED RATE 80 mm/hr Critically high <=20 [facility] Comment on above: Performed By: #### S EDR ####[facility] Mwxufffvym372[address] [place], [place] [address]Dr. Farhat Leal BLOOD CULTURE ID PANELon A. baumannii Not detected Normal NOT DETECTED [facility] Comment on above: Performed By: #### B CID2 ####[facility] Wkmhvvbaqg667[address] [place], [place] [address]Dr. Farhat Elvis Bacteriodes fragilis Not detected Normal NOT DETECTED [facility] Comment on above: Performed By: #### B CID2 ####[facility] Dtpyftppzz[address] [place], [place] [address]Dr. Farhat Elvis BCID CONTROLS PASSED Normal [facility] Comment on above: Performed By: #### B CID2 ####[facility] Fsrwyqywph574[address] [place], [place] [address]Dr. Farhat Elvis BCIDBTHD BLOOD CULTURE BOTTLE INFORMATION Normal [facility] Comment on above: Performed By: #### B CID2 ####[facility] Bmjgdppddl9[address] [place], [place] [address]Dr. Farhat Elvis BCIDHD1 ANTIMICROBIAL RESISTANCE GENES Normal [facility] Comment on above: Performed By: #### B CID2 ####[facility] Cannnkjlzm942[address] [place], [place] [address]Dr. Farhat Elvis BCIDHD2 SEE BELOW Normal [facility] Comment on above: Result Comment: Note : Antimicrobial resitance can occur via multiple mechanisms. A Not Detected result for the [employer] antomicrobial resistance gene assays does not indicate antimicrobial susceptibility. Subculturing is required for species identification and susceptibility testing of isolates. Performed By: #### B CID2 ####[facility] Bdfsbzutoz39[address] [place] [id number]. Yilorri Leal BCIDHD3 Positive Normal [facility] Comment on above: Performed By: #### B CID2 ####[facility] Jxtetvilro2412 [place] [address]Dr. Yilorri Leal BCIDHD4 Negative Normal [facility] Comment on above: Performed By: #### B CID2 ####[facility] Eyeoebujom0703 [place] [address]Dr. Farhat Leal BCIDHD5 YEAST Normal [facility] Comment on above: Performed By: #### B CID2 ####[facility] Skvfkrlrgw6715 [place] [address]Dr. Farhat Leal Bottle Set: Set 1 Normal [facility] Comment on above: Performed By: #### B CID2 ####[facility] Fegbftjqni37[address] [place], [place] [address]Dr. Farhat Leal Bottle: Aerobic Normal [facility] Comment on above: Performed By: #### B CID2 ####[facility] Vbhiplnytv0637 [place] [address]Dr. Yilorri Leal C. neoformans/gattii Not detected Normal NOT DETECTED [facility] Comment on above: Performed By: #### B CID2 ####[facility] Hgtksqsnqe6889 [place] [address]Dr. Yilorri Leal Disha albicans Not detected Normal NOT DETECTED [facility] Comment on above: Performed By: #### B CID2 ####[facility] Rnglzjtlxj5231 [place] [address]Dr. Yilorri Leal Disha auris Not detected Normal NOT DETECTED [facility] Comment on above: Performed By: #### B CID2 ####[facility] Bvtnqtbaen37[address] [place], [place] [address]Dr. Yilorri Leal Disha glabrata Not detected Normal NOT DETECTED [facility] Comment on above: Performed By: #### B CID2 ####[facility] Yraezuytgq5689 [place] [address]Dr. Yilorri Leal Disha Krusei Not detected Normal NOT DETECTED [facility] Comment on above: Performed By: #### B CID2 ####[facility] Trzizkfcdk5314[address] [place], [place] [address]Dr. Farhat Leal Disha Parapsilosis Not detected Normal NOT DETECTED [facility] Comment on above: Performed By: #### B CID2 ####[facility] Fmiumvxmjk6714[address] [place], [place] [address]Dr. Yilorri Leal Disha Tropicalis Not detected Normal NOT DETECTED [facility] Comment on above: Performed By: #### B CID2 ####[facility] Dcwofqzpev100[address] [place], [place] [address]Dr. Farhat Leal CTX-M Resistant Gene Not Applicable Normal NOT DETECTE [facility] Comment on above: Performed By: #### B CID2 ####[facility] Crteemlhlj559[address] [place], [place] [address]Dr. Farhat Leal E. Cloacae complex Not detected Normal NOT DETECTED [facility] Comment on above: Performed By: #### B CID2 ####[facility] Phvkiicxmm0807[address] [place], [place] [address]Dr. Farhat Leal E. faecalis Not detected Normal NOT DETECTED [facility] Comment on above: Performed By: #### B CID2 ####[facility] Aiwuadnkxg9440[address] [place], [place] [address]Dr. Farhat Leal E. faecium Not detected Normal NOT DETECTED [facility] Comment on above: Performed By: #### B CID2 ####[facility] Cskhqfqvjy[address] [place], [place] [address]Dr. Farhat Leal Enterobacteriaceae Not detected Normal NOT DETECTED [facility] Comment on above: Performed By: #### B CID2 ####[facility] Negmahksdc357343 [address] [place], [place] [address]Dr. Farhat Leal Escherichia coli Not detected Normal NOT DETECTED [facility] Comment on above: Performed By: #### B CID2 ####[facility] Lghvbqirmg232[address] [place], [place] [address]Dr. Madelynlorri Leal H. influenzae Not detected Normal NOT DETECTED [facility] Comment on above: Performed By: #### B CID2 ####[facility] Viwllnbvyi0608 [place] [address]Dr. Farhat Leal IMP Resistant Gene Not Applicable Normal NOT DETECTED [facility] Comment on above: Performed By: #### B CID2 ####[facility] Jrudcklfyx9464 [place] [address]Dr. Farhat Leal K. oxytoca Not detected Normal NOT DETECTED [facility] Comment on above: Performed By: #### B CID2 ####[facility] Lohdgnlmwo7380 [place] [address]Dr. Farhat Leal K. pneumoniae Not detected Normal NOT DETECTED [facility] Comment on above: Performed By: #### B CID2 ####[facility] Mplacqqlrk225[address] [place], [place] [address]Dr. Farhat Leal Klebsiella aerogenes Not detected Normal NOT DETECTED [facility] Comment on above: Performed By: #### B CID2 ####[facility] Oxgesuyfoi701[address] [place], [place] [address]Dr. Farhat Leal KPC Resistant Gene Not Applicable Normal NOT DETECTED [facility] Comment on above: Performed By: #### B CID2 ####[facility] Lwphewwcgk329[address] [place], [place] [address]Dr. Farhat Elvis List. monocytogenes Not detected Normal NOT DETECTED [facility] Comment on above: Performed By: #### B CID2 ####[facility] Gljoiltjhc75[address] [place], [place] [address]Dr. Madelynlorri Elvis Mcr-1 Resistant Gene Not Applicable Normal NOT DETECTE D [facility] Comment on above: Performed By: #### B CID2 ####[facility] Sgerqpzyhu0096 [place] [address]Dr. Yilan Leal mecA/C Not Applicable Normal NOT DETECTED [facility] Comment on above: Performed By: #### B CID2 ####[facility] [facility] [address] [place] [address]Dr. Farhat Leal mecA/C MREJ Detected Abnormal NOT DETECTED [facility] Comment on above: Performed By: #### B CID2 ####[facility] Yzizlmwbta[address] [place], [place] [address]Dr. Farhat Leal N. meningitidis Not detected Normal NOT DETECTED The [facility] Comment on above: Performed By: #### B CID2 ####[facility] Bsskimrhnw37[address] [place], [place] [address]Dr. Farhat Leal NDM Resistant Gene Not Applicable Normal NOT DETECTED [facility] Comment on above: Performed By: #### B CID2 ####[facility] Zdegltdsny676[address] [place], [place] [address]Dr. Farhat Leal Oxa-48-like Not Applicable Normal NOT DETECTED The [facility] Comment on above: Performed By: #### B CID2 ####[facility] Eckiyrltoe85[address] [place], [place] [address]Dr. Farhat Leal Proteus Not detected Normal NOT DETECTED The [facility] Comment on above: Performed By: #### B CID2 ####[facility] Pnsjpqeyfa075[address] [place], [place] [address]Dr. Farhat Leal Pseud. aeruginosa Not detected Normal NOT DETECTED [facility] Comment on above: Performed By: #### B CID2 ####[facility] Jymyzolbne299[address] [place], [place] [address]Dr. Farhat Leal S. maltophilia Not detected Normal NOT DETECTED The [facility] Comment on above: Performed By: #### B CID2 ####[facility] Xehtmanipa3218[address] [place], [place] [address]Dr. Farhat Leal Salmonella Not detected Normal NOT DETECTED [facility] Comment on above: Performed By: #### B CID2 ####[facility] Gecqjvoqae95[address] [place], [place] [address]Dr. Farhat Leal Seratia marcescens Not detected Normal NOT DETECTED [facility] Comment on above: Performed By: #### B CID2 ####[facility] Gwahjcqkja8[address] [place], [place] [address]Dr. Farhat Leal Site: Rt Hand Normal [facility] Comment on above: Performed By: #### B CID2 ####[facility] Tdmvrbagme6199[address] [place], [place] [address]Dr. Farhat Leal Staph. aureus Detected Abnormal NOT DETECTED The [facility] Comment on above: Performed By: #### B CID2 ####[facility] Ybkyyjwurg3[address] [place], [place] [address]Dr. Farhat Leal Staph. epidermidis Not detected Normal NOT DETECTED [facility] Comment on above: Performed By: #### B CID2 ####[facility] Kckqyhugaa100[address] [place], [place] [address]Dr. Farhat Leal Staph. lugdunensis Not detected Normal NOT DETECTED [facility] Comment on above: Performed By: #### B CID2 ####[facility] Nntntswhab3900[address] [place], [place] [address]Dr. Farhat Leal Staphylococcus Detected Abnormal NOT DETECTED The [facility] Comment on above: Performed By: #### B CID2 ####[facility] Cicllhzxeh246[address] [place], [place] [address]Dr. Farhat Leal Strep. agalactiae Not detected Normal NOT DETECTED [facility] Comment on above: Performed By: #### B CID2 ####[facility] Uigxmnivmr0488[address] [place], [place] [address]Dr. Farhat Leal Strep. pneumoniae Not detected Normal NOT DETECTED [facility] Comment on above: Performed By: #### B CID2 ####[facility] Cyrvjabkko[address] [place], [place] [address]Dr. Farhat Leal Strep. pyogenes Not detected Normal NOT DETECTED The [facility] Comment on above: Performed By: #### B CID2 ####[facility] Pwndqcyvmi7179[address] [place], [place] [address]Dr. Farhat Leal Streptococcus Not detected Normal NOT DETECTED The [facility] Comment on above: Performed By: #### B CID2 ####[facility] Cpmvrnwuwa0500[address] [place], [place] [address]Dr. Farhat Leal Teodoro/B Resist. Gene Not Applicable Normal NOT DETECTED [facility] Comment on above: Performed By: #### B CID2 ####[facility] Ezjggcolzf9359[address] [place], [place] [address]Dr. Farhat Leal VIM Resistant Gene Not Applicable Normal NOT DETECTED [facility] Comment on above: Performed By: #### B CID2 ####[facility] U[address]cefvlqid[address] [place] [address]Dr. Farhat Leal BNPon 11-23-2021 Natriuretic peptide B (Bld) [Mass/Vol] 24206.0 pg/mL Critically high <=1,800.0 [facility] Comment on above: Performed By: #### C MP, CMADM, BNP ####[facility] Nbxrjpyxde[address] [place] [address]Dr. Farhat Leal CARDIAC AMANDA ADMITon 022 CK [Catalytic activity/Vol] 41 U/L Normal 39-308 [facility] Comment on above: Performed By: #### C MP, CMADM, BNP ####[facility] Dizvzoiqaj0[address] [place] [address]Dr. Farhat Leal CK.MB [Mass/Vol] 0.98 ng/mL Normal <=3.60 The [facility] Comment on above: Performed By: #### C MP, CMADM, BNP ####[facility] V[address]qm[address]fjs[address] [place] [address]Dr. lorri Leal HSTROP 30.1 pg/mL Normal 4.0-76.1 [facility] Comment on above: Result Comment: CUT- OFF POINTS HAVE BEEN ESTABLISHED BASED ON THE FOURTH UNIVERSAL DEFINITIONS OF MYOCARDIALINFARCTION. THE UPPER REFERENCE LIMIT (URL) OF TROPONIN, DEFINED THE 99TH PERCENTILE OFcTnI DISTRIBUTION IN A REFERENCE POPULATION, HAS BEEN CONFIRMED THE DECISION THRESHOLDFOR VA DIAGNOSIS. Performed By: #### C MP, CMADM, BNP ####[facility] Sm[address]zpriip[address] [place] [address]Dr. Farhat Leal VALERIA 160 ng/mL Critically high 16-96 The [facility] Comment on above: Performed By: #### C MP, CMADM, BNP ####[facility] Odtcdbubkl[address] [place] [address]Dr. Farhat Leal CBC AUTO DIFFon 11-23-2021 BASO # 0.0 103/ul Normal 0.0-0.1 [facility] Comment on above: Performed By: #### C BC ####[facility] [address]hcfn[address] [place] [phone]. Farhat Leal Basophils/100 WBC (Bld) 0.2 % Normal 0.2-2.0 [facility] Comment on above: Performed By: #### C BC ####[facility] Ndrmqjgclq[address] [place] [phone]. Farhat Leal EO # 0.0 103/ul Normal 0.0-0.7 [facility] Comment on above: Performed By: #### C BC ####[facility] Khdbcnbfnz[address] [place], [place] [address]Dr. Farhat Leal Eosinophils/100 WBC (Bld) 0.1 % Critically low 0.9-7.0 [facility] Comment on above: Performed By: #### C BC ####[facility] Waleqztnff64[address] [place], [place] [address]Dr. Farhat Leal Erythrocyte distribution width (RBC) [Ratio] 13.4 % Normal 11.0-15.0 [facility] Comment on above: Performed By: #### C BC ####[facility] Majdbrdxzq32[address] [place], [place] [address]Dr. Farhat Leal Hematocrit (Bld) [Volume fraction] 31.6 % Critically low 42.0-54.0 [facility] Comment on above: Performed By: #### C BC ####[facility] Koyzdulyuz[address] [place], [place] [address]Dr. Farhat Leal Hemoglobin (Bld) [Mass/Vol] 10.4 g/dL Critically low 14.0-18.0 [facility] Comment on above: Performed By: #### C BC ####[facility] Wpccmadswy[address] [place], [place] [address]Dr. Farhat Leal IG # 0.11 10e3/ul Critically high 0.00-0.03 [facility] Comment on above: Performed By: #### C BC ####[facility] Rsxbpilykd[address] [place], [place] [address]Dr. Farhat Leal IG % 0.7 % Critically high 0.0-0.5 [facility] Comment on above: Performed By: #### C BC ####[facility] [address]rezqw[address] [place] [phone]. Farhat Leal LYMPH # 0.5 103/ul Critically low 1.2-3.8 [facility] Comment on above: Performed By: #### C BC ####[facility] [address]fcpopmvit[address] [place] [phone]. Farhat Leal Lymphocytes/100 WBC (Bld) 2.8 % Critically low 20.5-60.0 [facility] Comment on above: Performed By: #### C BC ####[facility] [address]feqro[address] [place] [phone]. Farhat Leal MANUAL DIFF REQ NO Normal [facility] Comment on above: Performed By: #### C BC ####[facility] [address]roqfsaf[address] [place] [phone]. Farhat Leal MCH (RBC) [Entitic mass] 29.8 pg Normal 25.9-34.0 [facility] Comment on above: Performed By: #### C BC ####[facility] O[address]rrbweqg[address] [place] [phone]. Farhat Leal MCHC (RBC) [Mass/Vol] 32.9 g/dL Normal 29.9-35.2 [facility] Comment on above: Performed By: #### C BC ####[facility] [address]ztiudd[address] [place] [phone] Leal MCV (RBC) [Entitic vol] 90.5 fL Normal 80.0-94.0 [facility] Comment on above: Performed By: #### C BC ####[facility] Y[address]bf[address]pywk[address] [place] [phone] Leal MONO # 1.3 103/ul Critically high 0.3-0.8 [facility] Comment on above: Performed By: #### C BC ####[facility] Nmaimvrckt[address] [place] [phone]. Farhat Leal Monocytes/100 WBC (Bld) 8.3 % Normal 1.7-12.0 [facility] Comment on above: Performed By: #### C BC ####[facility] Csawzciuwp[address] [place] [phone]. Farhat Leal NEUT # 13.9 103/ul Critically high 1.4-6.5 [facility] Comment on above: Performed By: #### C BC ####[facility] Uicbxyqaqo34[address] [place] [phone]. Farhat Leal Neutrophils/100 WBC (Bld) 87.9 % Critically high 43.0-75.0 [facility] Comment on above: Performed By: #### C BC ####[facility] Jntufgeoqm[address] [place] [phone]. Farhat Leal Platelet mean volume (Bld) [Entitic vol] 9.3 fL Critically low 9.5-13.5 [facility] Comment on above: Performed By: #### C BC ####[facility] Qfafcnvvsv[address] [place] [phone]. Farhat Leal PLT 390 103/ul Normal 150-450 [facility] Comment on above: Performed By: #### C BC ####[facility] Enqnlijcvu76[address] [place] [phone]. Farhat Leal RBC 3.49 106/ul Critically low 4.70-6.10 [facility] Comment on above: Performed By: #### C BC ####[facility] Gljcnfokvq87[address] [place] [phone]. Farhat Leal WBC 15.9 103/ul Critically high 4.0-11.0 [facility] Comment on above: Performed By: #### C BC ####[facility] Xrkdmdnbzo9[address] [place] [phone]. Farhat Leal CT HEAD WO CONon 11-23-2021 CT HEAD WO CON Normal [facility] CULTURE BLOODon 11-23-2021 Microscopic examination of blood, culture Culture Observations: NO GROWTH AT 5 DAYS. Normal [facility] Comment on above: Performed By: #### B LDCX2 ####[facility] [address]fubmsr[address] [place] [phone]. Farhat Leal Covid-19 PCR (CVDTBH)on SARS-CoV-2 (COVID-19) RNA JOSH+probe Ql (Unsp spec) Not detected Normal NOT DETECTED [facility] Comment on above: Result Comment: When [...] for this test is supported by the [place] of [employer] and Human Service's declaration that [...] Performed By: #### C VDTBH ####[facility] Woqkgcsyit[address] [place], [place] [address]Dr. Farhat Leal LACTATE/LACTIC ACIDon 2021 Lactate [Moles/Vol] 1.3 mmol/L Normal 0.4-1.9 [facility] Comment on above: Performed By: #### L ACT ####[facility] Nxvxcfhlug2525[address] [place], [place] [address]DrSkylar Leal Lactate [Moles/Vol] 1.3 mmol/L Normal 0.4-1.9 The [facility] Comment on above: Performed By: #### L ACT ####[facility] Fhgrltgyij4[address] [place], [place] [address]Dr. Farhat Leal POINT OF CARE GLUCOSEon Glucose [Mass/Vol] 252 mg/dL Critically high 74-[address] [facility] Comment on above: Performed By: #### P OCGLUC ####[facility] Zxtvnuknkm75[address] [place], [place] [address]Dr. Farhat Leal PROF 14(COMP METB)on 022 Albumin [Mass/Vol] 1.6 g/dL Critically low 3.4-5.0 [facility] Comment on above: Performed By: #### C MP, CMADM, BNP ####[facility] Iducwgtmjc2[address] [place] [address]Dr. Farhat Leal Albumin/Globulin [Mass ratio] 0.4 {ratio} Normal [facility] Comment on above: Performed By: #### C MP, CMADM, BNP ####[facility] Assifxqhfd[address] [place] [address]Dr. Farhat Leal ALP [Catalytic activity/Vol] 98 U/L Normal 46-116 [facility] Comment on above: Performed By: #### C MP, CMADM, BNP ####[facility] Xcrozvkpyj25[address] [place] [address]Dr. Farhat Leal ALT [Catalytic activity/Vol] 52 U/L Normal 16-63 [facility] Comment on above: Performed By: #### C MP, CMADM, BNP ####[facility] Llgrrwepkq0656 [place] [address]Dr. Farhat Leal Anion gap [Moles/Vol] 9.8 mmol/L Normal [facility] Comment on above: Performed By: #### C MP, CMADM, BNP ####[facility] Mvlgspdarh9[address] [place] [address]Dr. Farhat Leal AST [Catalytic activity/Vol] 122 U/L Critically high 15-37 [facility] Comment on above: Performed By: #### C MP, CMADM, BNP ####[facility] Hlpzekceaz99[address] [place] [address]Dr. Farhat Leal Bilirubin [Mass/Vol] 0.7 mg/dL Normal 0.2-1.0 [facility] Comment on above: Performed By: #### C MP, CMADM, BNP ####[facility] Tzayiqprur6[address] [place] [address]Dr. Farhat Leal Calcium [Mass/Vol] 8.6 mg/dL Normal 8.5-10.1 [facility] Comment on above: Performed By: #### C MP, CMADM, BNP ####[facility] Dkkmdiztml044[address] [place] [address]Dr. Farhat Leal Chloride [Moles/Vol] 95 mmol/L Critically low 98-107 [facility] Comment on above: Performed By: #### C MP, CMADM, BNP ####[facility] Jppcdjzfdw75[address] [place] [address]Dr. Farhat Leal CO2 [Moles/Vol] 29.6 mmol/L Normal 21.0-32.0 [facility] Comment on above: Performed By: #### C MP, CMADM, BNP ####[facility] Waboxiktvv27[address] [place], [place] [address]Dr. Farhat Leal Creatinine [Mass/Vol] 1.49 mg/dL Critically high 0.70-1.30 [facility] Comment on above: Performed By: #### C MP, CMADM, BNP ####[facility] Gsqxpnbgsp64[address] [place], [place] [address]Dr. Farhat Leal EGFR-AF GEORGIAN 55 mL/min/1.73m2 Critically low >=60 [facility] Comment on above: Performed By: #### C MP, CMADM, BNP ####[facility] Cjdaktajoo[address] [place], [place] [address]Dr. Farhat Leal EGFR-NON AF GEORGIAN 46 mL/min/1.73m2 Critically low >=60 [facility] Comment on above: Performed By: #### C MP, CMADM, BNP ####[facility] Horcmbgptr8[address] [place] [address]Dr. Farhat Leal Globulin (S) [Mass/Vol] 4.3 g/dL Normal [facility] Comment on above: Performed By: #### C MP, CMADM, BNP ####[facility] Vcximyjowo1980[address] [place], [place] [address]Dr. Farhat Leal Glucose [Mass/Vol] 213 mg/dL Critically high 74-[address] [facility] Comment on above: Performed By: #### C MP, CMADM, BNP ####[facility] Wiqexktvqj15[address] [place] [address]Dr. Farhat Leal Potassium [Moles/Vol] 4.4 mmol/L Normal 3.5-5.1 [facility] Comment on above: Performed By: #### C MP, CMADM, BNP ####[facility] Mqdabrplbf9[address] [place] [address]Dr. Farhat Leal Protein [Mass/Vol] 5.9 g/dL Critically low 6.4-8.2 Th [facility] Comment on above: Performed By: #### C MP, CMADM, BNP ####[facility] Ebupkxyjop[address] [place], [place] [address]Dr. Farhat Leal Sodium [Moles/Vol] 130 mmol/L Critically low 136-145 [facility] Comment on above: Performed By: #### C MP, CMADM, BNP ####[facility] Peqwutcajw[address] [place], [place] [address]Dr. Farhat Leal Urea nitrogen [Mass/Vol] 46.0 mg/dL Critically high 7.0-18.0 [facility] Comment on above: Performed By: #### C MP, CMADM, BNP ####[facility] Ffhmhgylec[address] [place], [place] [address]Dr. Farhat Leal Urea nitrogen/Creatinine [Mass ratio] 30.9 mg/mg Normal [facility] Comment on above: Performed By: #### C MP, CMADM, BNP ####[facility] Lhnkavpbbp4[address] [place], [place] [address]Dr. Farhat Leal PROTIMEon 11-23-2021 INR Coag (PPP) [Relative time] 2.55 {INR} Normal [facility] Comment on above: Performed By: #### P TT, PT ####[facility] Makbuzwqvm322[address] [place], [place] [address]Dr. Farhat Leal INR GUIDELINES SEE BELOW Normal [facility] Comment on above: Result Comment: MALINA RED INR: 2.0 - 3.0 CONDITIONS NOT LISTED BELOW 2.5 - 3.5 FOR PROSTHETIC HEART VALVE REPLACEMENT 2.5 - 3.5 RECURRENT THROMBOSIS Performed By: #### P TT, PT ####[facility] Hpefonhamb5[address] [place] [phone]. Farhat Leal PT Coag (PPP) [Time] 25.9 s Critically high 9.0-11.6 [facility] Comment on above: Performed By: #### P TT, PT ####[facility] Nlbgpabwpe[address] [place], [place] [address]Dr. Farhat Leal PTTon 11-23-2021 aPTT Coag (Bld) [Time] 39.9 s Critically high 22.3-36. 2 [facility] Comment on above: Performed By: #### P TT, PT ####[facility] Kwiqzcuskb[address] [place], [place] [address]Dr. Farhat Leal XR CHEST 1 Von 11-23-2021 XR CHEST 1 V Normal [facility] XR HEEL RT 2Von 11-23-2021 XR HEEL RT 2V Normal [facility] XR FOOT RT MIN 3 VIEWSon XR FOOT RT MIN 3 VIEWS Normal [facility] US ARTERY LEG RTon US ARTERY LEG RT Normal [facility] CBC AUTO DIFFon 09-24-2021 BASO # 0.1 103/ul Normal 0.0-0.1 [facility] Comment on above: Performed By: #### C BC ####[facility] Mysvmihzkh147[address] [place], [place] [address]Dr. Farhat Elvis Basophils/100 WBC (Bld) 0.7 % Normal 0.2-2.0 [facility] Comment on above: Performed By: #### C BC ####[facility] Ddqoplzhpt[address] [place], [place] [address]Dr. Farhat Leal EO # 0.3 103/ul Normal 0.0-0.7 [facility] Comment on above: Performed By: #### C BC ####[facility] Zgibvhvxnf[address] [place], [place] [address]Dr. Farhat Leal Eosinophils/100 WBC (Bld) 3.9 % Normal 0.9-7.0 [facility] Comment on above: Performed By: #### C BC ####[facility] Ryhqwapupb35[address] [place] [phone]. Farhat Leal Erythrocyte distribution width (RBC) [Ratio] 12.6 % Normal 11.0-15.0 [facility] Comment on above: Performed By: #### C BC ####[facility] Eqrkiiatmz1842 [place] [address]Dr. Farhat Leal Hematocrit (Bld) [Volume fraction] 38.9 % Critically low 42.0-54.0 [facility] Comment on above: Performed By: #### C BC ####[facility] Kpvasnairt29[address] [place] [address]Dr. Farhat Leal Hemoglobin (Bld) [Mass/Vol] 12.8 g/dL Critically low 14.0-18.0 [facility] Comment on above: Performed By: #### C BC ####[facility] Wldwtpmrbf6116 [place] [address]Dr. Farhat Leal IG # 0.10 10e3/ul Critically high 0.00-0.03 [facility] Comment on above: Performed By: #### C BC ####[facility] Cuqzjibdpg9658 [place] [address]Dr. Farhat Leal IG % 1.2 % Critically high 0.0-0.5 [facility] Comment on above: Performed By: #### C BC ####[facility] Zrulcvhhlb4595 [place] [address]Dr. Farhat Leal LYMPH # 2.1 103/ul Normal 1.2-3.8 [facility] Comment on above: Performed By: #### C BC ####[facility] Ycyiowurhc2415 [place] [address]Dr. Farhat Leal Lymphocytes/100 WBC (Bld) 25.9 % Normal 20.5-60.0 [facility] Comment on above: Performed By: #### C BC ####[facility] Bsrxstmfvs88[address] [place] [address]Dr. Farhat Leal MANUAL DIFF REQ NO Normal [facility] Comment on above: Performed By: #### C BC ####[facility] Sxlxvzjuav1431 [place] [phone]. Farhat Leal MCH (RBC) [Entitic mass] 31.1 pg Normal 25.9-34.0 [facility] Comment on above: Performed By: #### C BC ####[facility] Kksozbltei1543 [place] [phone]. Farhat Leal MCHC (RBC) [Mass/Vol] 32.9 g/dL Normal 29.9-35.2 [facility] Comment on above: Performed By: #### C BC ####[facility] Iqvxajiozy1312 [place] [phone]. Farhat Leal MCV (RBC) [Entitic vol] 94.6 fL Critically high 80.0-94.0 [facility] Comment on above: Performed By: #### C BC ####[facility] Iqgzlbhxjs[address] [place], [place] [address]Dr. Farhat Leal MONO # 1.2 103/ul Critically high 0.3-0.8 [facility] Comment on above: Performed By: #### C BC ####[facility] Fegbycofbk48[address] [place] [address]Dr. Farhat Leal Monocytes/100 WBC (Bld) 14.1 % Critically high 1.7-12.0 [facility] Comment on above: Performed By: #### C BC ####[facility] Oxukqexuzs[address] [place], [place] [address]Dr. Farhat Leal NEUT # 4.4 103/ul Normal 1.4-6.5 [facility] Comment on above: Performed By: #### C BC ####[facility] Zxzxevtnie9697 [place] [id number]. Farhat Leal Neutrophils/100 WBC (Bld) 54.2 % Normal 43.0-75.0 [facility] Comment on above: Performed By: #### C BC ####[facility] Afxwnhlmom[address] [place], [place] [id number]. Farhat Leal Platelet mean volume (Bld) [Entitic vol] 9.9 fL Normal 9.5-13.5 [facility] Comment on above: Performed By: #### C BC ####[facility] Vdmtoamfao6274 [place] [phone]. Farhat Elvis PLT 224 103/ul Normal 150-450 [facility] Comment on above: Performed By: #### C BC ####[facility] Frerrmsbnc5436 [place] [phone]. Farhat Elvis RBC 4.11 106/ul Critically low 4.70-6.10 The [facility] Comment on above: Performed By: #### C BC ####[facility] Iawpxswojl1619 [place] [phone]. Farhat Elvis WBC 8.2 103/ul Normal 4.0-11.0 [facility] Comment on above: Performed By: #### C BC ####[facility] Zpdoldsdop3765 [place] [address]Dr. Farhat Leal PROF CHEM 8 (BAS METB)on Anion gap [Moles/Vol] 9.6 mmol/L Normal [facility] Comment on above: Performed By: #### B MP ####[facility] Spdqmaoxpi43[address] [place], [place] [address]Dr. Farhat Leal Calcium [Mass/Vol] 8.6 mg/dL Normal 8.5-10.1 [facility] Comment on above: Performed By: #### B MP ####[facility] Bbqimfbgxj498[address] [place], [place] [address]Dr. Farhat Leal Chloride [Moles/Vol] 94 mmol/L Critically low 98-107 [facility] Comment on above: Performed By: #### B MP ####[facility] Bbluiogjqz[address] [place], [place] [address]Dr. Farhat Leal CO2 [Moles/Vol] 28.1 mmol/L Normal 21.0-32.0 The [facility] Comment on above: Performed By: #### B MP ####[facility] Dxvbrxwxrb2037 [place] [address]Dr. Farhat Leal Creatinine [Mass/Vol] 1.91 mg/dL Critically high 0.70-1.30 [facility] Comment on above: Performed By: #### B MP ####[facility] Byufcuylvh5772 [place] [phone]. Farhat Leal EGFR-AF GEORGIAN 42 mL/min/1.73m2 Critically low >=60 [facility] Comment on above: Performed By: #### B MP ####[facility] Cuedofvuba9760 [place] [phone]. Farhat Leal EGFR-NON AF GEORGIAN 34 mL/min/1.73m2 Critically low >=60 [facility] Comment on above: Performed By: #### B MP ####[facility] Zqcryxoapm7989 [place] [phone]. Farhat Leal Glucose [Mass/Vol] 314 mg/dL Critically high 74-106 [facility] Comment on above: Performed By: #### B MP ####[facility] Xjmnupkttm0539 [place] [phone]. Farhat Leal Potassium [Moles/Vol] 4.7 mmol/L Normal 3.5-5.1 [facility] Comment on above: Performed By: #### B MP ####[facility] Rfvlfurrtf9042 [place] [phone]. Farhat Leal Sodium [Moles/Vol] 127 mmol/L Critically low 136-145 [facility] Comment on above: Performed By: #### B MP ####[facility] Dyzixnknwq4451 [place] [phone] Leal Urea nitrogen [Mass/Vol] 79.0 mg/dL Critically high 7.0-18.0 [facility] Comment on above: Result Comment: repe ated Performed By: #### B MP ####[facility] Arlqlbbbmq6779 [place] [phone]. Farhat Leal Urea nitrogen/Creatinine [Mass ratio] 41.4 mg/mg Normal [facility] Comment on above: Performed By: #### B MP ####[facility] Ejfkycneqw2341 [place] [phone] Leal PTT HEPARIN MONITORon 2021 aPTT Coag (Bld) [Time] 42.7 s Normal 39.5-54.2 [facility] Comment on above: Performed By: #### P TTHEP ####[facility] Apusrslhrc8399 [place] [address]Dr. Farhat Leal aPTT Coag (Bld) [Time] 56.7 s Critically high 39.5-54. 2 [facility] Comment on above: Performed By: #### P TTHEP ####[facility] Obszqvqgul4740[address] [place], [place] [address]Dr. Farhat Elvis CBC AUTO DIFFon 09-23-2021 BASO # 0.1 103/ul Normal 0.0-0.1 [facility] Comment on above: Performed By: #### C BC ####[facility] Qkldpabtlx8[address] [place], [place] [address]Dr. Farhat Leal Basophils/100 WBC (Bld) 0.6 % Normal 0.2-2.0 [facility] Comment on above: Performed By: #### C BC ####[facility] Zihgvmupax913[address] [place], [place] [address]Dr. Madelynlorri Leal EO # 0.2 103/ul Normal 0.0-0.7 [facility] Comment on above: Performed By: #### C BC ####[facility] Zqwnpmqrei0401[address] [place], [place] [address]Dr. Farhat Leal Eosinophils/100 WBC (Bld) 2.6 % Normal 0.9-7.0 [facility] Comment on above: Performed By: #### C BC ####[facility] Txzmhxcyan512[address] [place], [place] [address]Dr. Madelynlorri Leal Erythrocyte distribution width (RBC) [Ratio] 12.4 % Normal 11.0-15.0 [facility] Comment on above: Performed By: #### C BC ####[facility] Sxdnnufynt8[address] [place], [place] [address]Dr. Farhat Leal Hematocrit (Bld) [Volume fraction] 38.4 % Critically low 42.0-54.0 [facility] Comment on above: Performed By: #### C BC ####[facility] Ksxrmfyfqt9319 [place] [phone]. Farhat Leal Hemoglobin (Bld) [Mass/Vol] 12.8 g/dL Critically low 14.0-18.0 [facility] Comment on above: Performed By: #### C BC ####[facility] Umfsigvmlp7646 [place] [phone]. Farhat Leal IG # 0.06 10e3/ul Critically high 0.00-0.03 [facility] Comment on above: Performed By: #### C BC ####[facility] Xxlppyrccb8346 [place] [phone]. Farhat Leal IG % 0.8 % Critically high 0.0-0.5 [facility] Comment on above: Performed By: #### C BC ####[facility] Hbubnuolme4424[address] [place], [place] [address]Dr. Farhat Leal LYMPH # 1.5 103/ul Normal 1.2-3.8 [facility] Comment on above: Performed By: #### C BC ####[facility] Smgsrzqupm[address] [place], [place] [address]Dr. Farhat Leal Lymphocytes/100 WBC (Bld) 19.7 % Critically low 20.5-60.0 [facility] Comment on above: Performed By: #### C BC ####[facility] Tinjliqymd5453 [place] [address]Dr. Farhat Leal MANUAL DIFF REQ NO Normal [facility] Comment on above: Performed By: #### C BC ####[facility] Grughzvucs[address] [place], [place] [address]Dr. Farhat Leal MCH (RBC) [Entitic mass] 31.6 pg Normal 25.9-34.0 [facility] Comment on above: Performed By: #### C BC ####[facility] Rzdeuvfeqf[address] [place], [place] [address]Dr. Farhat Leal MCHC (RBC) [Mass/Vol] 33.3 g/dL Normal 29.9-35.2 [facility] Comment on above: Performed By: #### C BC ####[facility] Lisiruiqem1878 [place] [phone]. Farhat Leal MCV (RBC) [Entitic vol] 94.8 fL Critically high 80.0-94.0 [facility] Comment on above: Performed By: #### C BC ####[facility] Rlvrmmhlnk3659 [place] [phone]. Farhat Leal MONO # 1.0 103/ul Critically high 0.3-0.8 [facility] Comment on above: Performed By: #### C BC ####[facility] Hpfmcylckj4925 [place] [phone]. Farhat Leal Monocytes/100 WBC (Bld) 13.0 % Critically high 1.7-12.0 [facility] Comment on above: Performed By: #### C BC ####[facility] Tkslgihuhh[address] [place], [place] [address]Dr. Farhat Leal NEUT # 4.9 103/ul Normal 1.4-6.5 [facility] Comment on above: Performed By: #### C BC ####[facility] Dpvfdlvowu1558 [place] [address]Dr. Farhat Leal Neutrophils/100 WBC (Bld) 63.3 % Normal 43.0-75.0 [facility] Comment on above: Performed By: #### C BC ####[facility] Hxhpqwakps6194 [place] [phone]. Farhat Leal Platelet mean volume (Bld) [Entitic vol] 10.7 fL Normal 9.5-13.5 [facility] Comment on above: Performed By: #### C BC ####[facility] Mgxptzzota0970 [place] [phone]. Farhat Leal PLT 205 103/ul Normal 150-450 [facility] Comment on above: Performed By: #### C BC ####[facility] Ahprtljndn6499 [place] [phone]. Farhat Leal RBC 4.05 106/ul Critically low 4.70-6.10 [facility] Comment on above: Performed By: #### C BC ####[facility] Mxfrermefn9340 [place] [phone]. Madelynlorri Elvis WBC 7.7 103/ul Normal 4.0-11.0 [facility] Comment on above: Performed By: #### C BC ####[facility] Gidzzzvjhf0336 [place] [address]Dr. Farhat Leal PROF CHEM 8 (BAS METB)on Anion gap [Moles/Vol] 15.5 mmol/L Normal [facility] Comment on above: Performed By: #### B MP ####[facility] Qtjlqbspgo9694 [place] [address]Dr. Farhat Leal Calcium [Mass/Vol] 9.1 mg/dL Normal 8.5-10.1 [facility] Comment on above: Performed By: #### B MP ####[facility] Bqvsbraons311[address] [place], [place] [address]Dr. Farhat Leal Chloride [Moles/Vol] 92 mmol/L Critically low 98-107 [facility] Comment on above: Performed By: #### B MP ####[facility] Nljtkykyan494[address] [place], [place] [address]Dr. Farhat Leal CO2 [Moles/Vol] 28.5 mmol/L Normal 21.0-32.0 [facility] Comment on above: Performed By: #### B MP ####[facility] Unmhelfaro9[address] [place], [place] [address]Dr. Farhat Leal Creatinine [Mass/Vol] 1.84 mg/dL Critically high 0.70-1.30 [facility] Comment on above: Performed By: #### B MP ####[facility] Kiyxtzizhl8[address] [place], [place] [address]Dr. Farhat Leal EGFR-AF GEORGIAN 44 mL/min/1.73m2 Critically low >=60 [facility] Comment on above: Performed By: #### B MP ####[facility] Evvzaswlyu9825[address] [place], [place] [address]Dr. Farhat Leal EGFR-NON AF GEORGIAN 36 mL/min/1.73m2 Critically low >=60 [facility] Comment on above: Performed By: #### B MP ####[facility] Fniyznmogj8767 [place] [address]Dr. Madelynlorri Elvis Glucose [Mass/Vol] 267 mg/dL Critically high 74-106 [facility] Comment on above: Performed By: #### B MP ####[facility] Tbaaggexyr3940 [place] [address]Dr. Farhat Leal Potassium [Moles/Vol] 5.0 mmol/L Normal 3.5-5.1 [facility] Comment on above: Performed By: #### B MP ####[facility] Ookyjzwgul350[address] [place], [place] [address]Dr. Farhat Leal Sodium [Moles/Vol] 131 mmol/L Critically low 136-145 Th [facility] Comment on above: Performed By: #### B MP ####[facility] Izyxqjrfma2020[address] [place], [place] [address]Dr. Farhat Leal Urea nitrogen [Mass/Vol] 76.0 mg/dL Critically high 7.0-18.0 [facility] Comment on above: Performed By: #### B MP ####[facility] Qcdwpxykmz3175[address] [place], [place] [address]Dr. Farhat Leal Urea nitrogen/Creatinine [Mass ratio] 41.3 mg/mg Normal [facility] Comment on above: Performed By: #### B MP ####[facility] Hnmlctrxem798[address] [place], [place] [address]Dr. Farhat Leal PTT HEPARIN MONITORon 2021 aPTT Coag (Bld) [Time] 57.2 s Critically high 39.5-54. 2 [facility] Comment on above: Performed By: #### P TTHEP ####[facility] Bepxqakkzo53[address] [place], [place] [address]Dr. Farhat Leal aPTT Coag (Bld) [Time] 74.7 s Critically high 39.5-54. 2 [facility] Comment on above: Result Comment: repe ated Performed By: #### P TTHEP ####[facility] Uowxbtvnwa579[address] [place], [place] [address]Dr. Farhat Leal aPTT Coag (Bld) [Time] 45.5 s Normal 39.5-54.2 Th e [facility] Comment on above: Performed By: #### P TTHEP ####[facility] Rgdlggsxkb5304 [place] [phone]. Farhat Leal CBC AUTO DIFFon 09-22-2021 BASO # 0.1 103/ul Normal 0.0-0.1 [facility] Comment on above: Performed By: #### C BC ####[facility] Hfkekotekv3296 [place] [address]Dr. Farhat Leal Basophils/100 WBC (Bld) 0.7 % Normal 0.2-2.0 [facility] Comment on above: Performed By: #### C BC ####[facility] Ufrwwnhobd079[address] [place], [place] [address]Dr. Farhat Leal EO # 0.3 103/ul Normal 0.0-0.7 [facility] Comment on above: Performed By: #### C BC ####[facility] Criszwsbzo830[address] [place], [place] [address]Dr. Farhat Leal Eosinophils/100 WBC (Bld) 3.2 % Normal 0.9-7.0 [facility] Comment on above: Performed By: #### C BC ####[facility] Ujvrvzyxvi599[address] [place], [place] [address]Dr. Farhat Leal Erythrocyte distribution width (RBC) [Ratio] 12.5 % Normal 11.0-15.0 [facility] Comment on above: Performed By: #### C BC ####[facility] Mmvfwvdgte[address] [place], [place] [address]Dr. Farhat Leal Hematocrit (Bld) [Volume fraction] 40.5 % Critically low 42.0-54.0 [facility] Comment on above: Performed By: #### C BC ####[facility] Pishvfrmhr67[address] [place], [place] [address]Dr. Farhat Leal Hemoglobin (Bld) [Mass/Vol] 13.4 g/dL Critically low 14.0-18.0 [facility] Comment on above: Performed By: #### C BC ####[facility] Rmmmckzzum3435 [place] [phone]. Farhat Leal IG # 0.11 10e3/ul Critically high 0.00-0.03 [facility] Comment on above: Performed By: #### C BC ####[facility] Jgmardrvcu6248 [place] [phone]. Farhat Leal IG % 1.3 % Critically high 0.0-0.5 [facility] Comment on above: Performed By: #### C BC ####[facility] Ojvuvqydph4260 [place] [address]Dr. Farhat Leal LYMPH # 1.7 103/ul Normal 1.2-3.8 [facility] Comment on above: Performed By: #### C BC ####[facility] Zlpvtfddzb0102 [place] [address]Dr. Farhat Leal Lymphocytes/100 WBC (Bld) 19.6 % Critically low 20.5-60.0 [facility] Comment on above: Performed By: #### C BC ####[facility] Pefdmvcuph9112 [place] [address]Dr. Farhat Leal MANUAL DIFF REQ NO Normal [facility] Comment on above: Performed By: #### C BC ####[facility] Zvhkmbvwfn3919 [place] [address]Dr. Farhat Leal MCH (RBC) [Entitic mass] 31.1 pg Normal 25.9-34.0 [facility] Comment on above: Performed By: #### C BC ####[facility] Klbhyqdmkp044[address] [place], [place] [address]Dr. Farhat Leal MCHC (RBC) [Mass/Vol] 33.1 g/dL Normal 29.9-35.2 [facility] Comment on above: Performed By: #### C BC ####[facility] Mqwxzcxssm78[address] [place], [place] [address]Dr. Farhat Leal MCV (RBC) [Entitic vol] 94.0 fL Normal 80.0-94.0 [facility] Comment on above: Performed By: #### C BC ####[facility] Iziyrzavuq0113 [place] [phone]. Farhat Leal MONO # 1.1 103/ul Critically high 0.3-0.8 [facility] Comment on above: Performed By: #### C BC ####[facility] Xegicncchp0976 [place] [phone]. Farhat Leal Monocytes/100 WBC (Bld) 12.7 % Critically high 1.7-12.0 [facility] Comment on above: Performed By: #### C BC ####[facility] Armnjiapzi7100 [place] [phone]. Farhat Leal NEUT # 5.3 103/ul Normal 1.4-6.5 [facility] Comment on above: Performed By: #### C BC ####[facility] Vrkvoylmnh4339 [place] [phone]. Farhat Leal Neutrophils/100 WBC (Bld) 62.5 % Normal 43.0-75.0 [facility] Comment on above: Performed By: #### C BC ####[facility] Mvrjwgpybk8143 [place] [phone]. Farhat Leal Platelet mean volume (Bld) [Entitic vol] 10.1 fL Normal 9.5-13.5 [facility] Comment on above: Performed By: #### C BC ####[facility] Bovosgoeyo0202 [place] [phone]. Farhat Leal PLT 220 103/ul Normal 150-450 [facility] Comment on above: Performed By: #### C BC ####[facility] Eyevzllvhk7447 [place] [phone]. Farhat Leal RBC 4.31 106/ul Critically low 4.70-6.10 [facility] Comment on above: Performed By: #### C BC ####[facility] Ulbujhgmfj7610 [place] [phone]. Farhat Leal WBC 8.4 103/ul Normal 4.0-11.0 [facility] Comment on above: Performed By: #### C BC ####[facility] Wkcdgkltwm0678 [place] [address]Dr. Farhat Leal PROF CHEM 8 (BAS METB)on Anion gap [Moles/Vol] 15.5 mmol/L Normal [facility] Comment on above: Performed By: #### B MP ####[facility] Urmvwhomnh7723 [place] [address]Dr. Farhat Leal Calcium [Mass/Vol] 8.9 mg/dL Normal 8.5-10.1 [facility] Comment on above: Performed By: #### B MP ####[facility] Adbkvnehcl8736 [place] [address]Dr. Farhat Leal Chloride [Moles/Vol] 92 mmol/L Critically low 98-107 [facility] Comment on above: Performed By: #### B MP ####[facility] Meishvmfag63[address] [place], [place] [address]Dr. Farhat Leal CO2 [Moles/Vol] 25.7 mmol/L Normal 21.0-32.0 [facility] Comment on above: Performed By: #### B MP ####[facility] Khymogpwyd4300[address] [place], [place] [address]Dr. Farhat Leal Creatinine [Mass/Vol] 1.85 mg/dL Critically high 0.70-1.30 [facility] Comment on above: Performed By: #### B MP ####[facility] Dtiqvdbmtf58[address] [place], [place] [address]Dr. Farhat Leal EGFR-AF GEORGIAN 43 mL/min/1.73m2 Critically low >=60 [facility] Comment on above: Performed By: #### B MP ####[facility] Nqmjquxvza8835 [place] [address]Dr. Farhat Leal EGFR-NON AF GEORGIAN 36 mL/min/1.73m2 Critically low >=60 [facility] Comment on above: Performed By: #### B MP ####[facility] Elmsevxkfr007[address] [place], [place] [address]Dr. Farhat Leal Glucose [Mass/Vol] 410 mg/dL Critically high 74-[address] [facility] Comment on above: Performed By: #### B MP ####[facility] Bvhmwlbtcs0738 [place] [address]Dr. Farhat Leal Potassium [Moles/Vol] 5.2 mmol/L Critically high 3.5-5.1 [facility] Comment on above: Performed By: #### B MP ####[facility] Mmvdyvznhh9[address] [place], [place] [address]Dr. Farhat Leal Sodium [Moles/Vol] 128 mmol/L Critically low 136-145 [facility] Comment on above: Performed By: #### B MP ####[facility] Gynxcqrhkr1413[address] [place], [place] [address]Dr. Farhat Leal Urea nitrogen [Mass/Vol] 75.0 mg/dL Critically high 7.0-18.0 [facility] Comment on above: Performed By: #### B MP ####[facility] Ckcsybgiey27[address] [place], [place] [address]Dr. Farhat Leal Urea nitrogen/Creatinine [Mass ratio] 40.5 mg/mg Normal [facility] Comment on above: Performed By: #### B MP ####[facility] Pyvodixupv109[address] [place], [place] [address]Dr. Farhat Leal PTT HEPARIN MONITORon 2021 aPTT Coag (Bld) [Time] 51.2 s Normal 39.5-54.2 [facility] Comment on above: Performed By: #### P TTHEP ####[facility] Hlzftykyja[address] [place], [place] [address]Dr. Farhat Leal aPTT Coag (Bld) [Time] 55.6 s Critically high 39.5-54. 2 [facility] Comment on above: Performed By: #### P TTHEP ####[facility] Aqqjtwrgwf068[address] [place], [place] [address]Dr. Farhat Leal aPTT Coag (Bld) [Time] 46.1 s Normal 39.5-54.2 [facility] Comment on above: Performed By: #### P TTHEP ####[facility] Ogzqxifjeq044[address] [place], [place] [address]Dr. Farhat Elvis aPTT Coag (Bld) [Time] 53.8 s Normal 39.5-54.2 Th e [facility] Comment on above: Performed By: #### P TTHEP ####[facility] Wnnwvyscno4464 [place] [address]Dr. Farhat Elvis CBC AUTO DIFFon 09-21-2021 BASO # 0.1 103/ul Normal 0.0-0.1 [facility] Comment on above: Performed By: #### C BC ####[facility] Qsjsqlliuu6[address] [place], [place] [address]Dr. Farhat Leal Basophils/100 WBC (Bld) 0.8 % Normal 0.2-2.0 [facility] Comment on above: Performed By: #### C BC ####[facility] Ryaofjwklu[address] [place], [place] [address]Dr. Farhat Leal EO # 0.4 103/ul Normal 0.0-0.7 [facility] Comment on above: Performed By: #### C BC ####[facility] Zckbkqlgpk[address] [place], [place] [address]Dr. Farhat Leal Eosinophils/100 WBC (Bld) 4.3 % Normal 0.9-7.0 [facility] Comment on above: Performed By: #### C BC ####[facility] Ssrowozmhf[address] [place], [place] [address]Dr. Farhat Leal Erythrocyte distribution width (RBC) [Ratio] 12.5 % Normal 11.0-15.0 [facility] Comment on above: Performed By: #### C BC ####[facility] Iztyfqnfuu9[address] [place], [place] [address]Dr. Farhat Leal Hematocrit (Bld) [Volume fraction] 40.8 % Critically low 42.0-54.0 [facility] Comment on above: Performed By: #### C BC ####[facility] Acnhyjlspq7[address] [place], [place] [address]Dr. Farhat Leal Hemoglobin (Bld) [Mass/Vol] 13.5 g/dL Critically low 14.0-18.0 [facility] Comment on above: Performed By: #### C BC ####[facility] Kgviafevrk[address] [place] [id number]. Farhat Leal IG # 0.10 10e3/ul Critically high 0.00-0.03 [facility] Comment on above: Performed By: #### C BC ####[facility] Zmmwwlyngl8178 [place] [phone]. Farhat Leal IG % 1.2 % Critically high 0.0-0.5 [facility] Comment on above: Performed By: #### C BC ####[facility] Tegkvvdhjw6[address] [place] [address]Dr. Farhat Leal LYMPH # 1.3 103/ul Normal 1.2-3.8 [facility] Comment on above: Performed By: #### C BC ####[facility] Giikdgvyyt4863 [place] [address]Dr. Farhat Leal Lymphocytes/100 WBC (Bld) 15.4 % Critically low 20.5-60.0 [facility] Comment on above: Performed By: #### C BC ####[facility] Sglgmnqofc[address] [place] [address]Dr. Farhat Leal MANUAL DIFF REQ NO Normal [facility] Comment on above: Performed By: #### C BC ####[facility] Zdgqoatzsv4447 [place] [address]Dr. Farhat Leal MCH (RBC) [Entitic mass] 31.0 pg Normal 25.9-34.0 [facility] Comment on above: Performed By: #### C BC ####[facility] Qtbtekqaau[address] [place], [place] [id number]. Farhat Leal MCHC (RBC) [Mass/Vol] 33.1 g/dL Normal 29.9-35.2 [facility] Comment on above: Performed By: #### C BC ####[facility] Cxahibomyu9578 [place] [address]Dr. Farhat Leal MCV (RBC) [Entitic vol] 93.8 fL Normal 80.0-94.0 [facility] Comment on above: Performed By: #### C BC ####[facility] Gnvbvbwgay1299 [place] [phone]. Farhat Leal MONO # 1.2 103/ul Critically high 0.3-0.8 [facility] Comment on above: Performed By: #### C BC ####[facility] Tmfzuadclt8001 [place] [phone]. Farhat Leal Monocytes/100 WBC (Bld) 13.6 % Critically high 1.7-12.0 [facility] Comment on above: Performed By: #### C BC ####[facility] Emwrmmouig3951 [place] [phone]. Farhat Leal NEUT # 5.5 103/ul Normal 1.4-6.5 [facility] Comment on above: Performed By: #### C BC ####[facility] Agybrbpguf9636 [place] [address]Dr. Farhat Leal Neutrophils/100 WBC (Bld) 64.7 % Normal 43.0-75.0 [facility] Comment on above: Performed By: #### C BC ####[facility] Xsrwmycwrv6961 [place] [phone]. Farhat Leal Platelet mean volume (Bld) [Entitic vol] 9.8 fL Normal 9.5-13.5 [facility] Comment on above: Performed By: #### C BC ####[facility] Wnbhaqkgsn0521 [place] [phone]. Farhat Leal PLT 206 103/ul Normal 150-450 [facility] Comment on above: Performed By: #### C BC ####[facility] Hbtpbygrmx0944 [place] [phone]. Farhat Leal RBC 4.35 106/ul Critically low 4.70-6.10 [facility] Comment on above: Performed By: #### C BC ####[facility] Ctywqqmetg7416 [place] [phone]. Farhat Leal WBC 8.4 103/ul Normal 4.0-11.0 [facility] Comment on above: Performed By: #### C BC ####[facility] Odawixlpov9561 [place] [phone]. Farhat Leal PROF CHEM 8 (BAS METB)on Anion gap [Moles/Vol] 12.3 mmol/L Normal [facility] Comment on above: Performed By: #### B MP ####[facility] Bzopflxoho7532 [place] [address]Dr. Farhat Leal Calcium [Mass/Vol] 8.6 mg/dL Normal 8.5-10.1 [facility] Comment on above: Performed By: #### B MP ####[facility] Ccgzntukmk1419 [place] [address]Dr. Farhat Leal Chloride [Moles/Vol] 94 mmol/L Critically low 98-107 [facility] Comment on above: Performed By: #### B MP ####[facility] Nvuwbipihl6252 [place] [address]Dr. Farhat Leal CO2 [Moles/Vol] 30.8 mmol/L Normal 21.0-32.0 [facility] Comment on above: Performed By: #### B MP ####[facility] Xswixiurak[address] [place], [place] [address]Dr. Farhat Leal Creatinine [Mass/Vol] 1.99 mg/dL Critically high 0.70-1.30 [facility] Comment on above: Performed By: #### B MP ####[facility] Ppeftfiqms13[address] [place], [place] [address]Dr. Farhat Leal EGFR-AF GEORGIAN 40 mL/min/1.73m2 Critically low >=60 [facility] Comment on above: Performed By: #### B MP ####[facility] Uvirxronme8675 [place] [address]Dr. Farhat Leal EGFR-NON AF GEORGIAN 33 mL/min/1.73m2 Critically low >=60 [facility] Comment on above: Performed By: #### B MP ####[facility] Ykhhbenkms939[address] [place], [place] [address]Dr. Farhat Leal Glucose [Mass/Vol] 264 mg/dL Critically high 74-[address] [facility] Comment on above: Performed By: #### B MP ####[facility] Rvdkyqmihu2639 [place] [address]Dr. Farhat Elvis Potassium [Moles/Vol] 5.1 mmol/L Normal 3.5-5.1 [facility] Comment on above: Performed By: #### B MP ####[facility] Lpkqsumvof1400[address] [place], [place] [address]Dr. Farhat Leal Sodium [Moles/Vol] 132 mmol/L Critically low 136-145 [facility] Comment on above: Performed By: #### B MP ####[facility] Gcpybflsui99[address] [place], [place] [address]Dr. Madelynlorri Elvis Urea nitrogen [Mass/Vol] 72.0 mg/dL Critically high 7.0-18.0 [facility] Comment on above: Performed By: #### B MP ####[facility] Odytxsaxqa3575[address] [place], [place] [address]Dr. Farhat Leal Urea nitrogen/Creatinine [Mass ratio] 36.2 mg/mg Normal [facility] Comment on above: Performed By: #### B MP ####[facility] Ufzyuotyxs494[address] [place], [place] [address]Dr. Farhat Elvis PTT HEPARIN MONITORon 2021 aPTT Coag (Bld) [Time] 45.3 s Normal 39.5-54.2 [facility] Comment on above: Performed By: #### P TTHEP ####[facility] Eispdwfsmu984[address] [place], [place] [address]Dr. Madelynlorri Elvis aPTT Coag (Bld) [Time] 68.0 s Critically high 39.5-54. 2 [facility] Comment on above: Performed By: #### P TTHEP ####[facility] Vnvbynsnbo[address] [place], [place] [address]Dr. Farhat Leal aPTT Coag (Bld) [Time] 69.4 s Critically high 39.5-54. 2 [facility] Comment on above: Performed By: #### P TTHEP ####[facility] Setewzwqrj529[address] [place], [place] [address]Dr. Farhat Elvis aPTT Coag (Bld) [Time] 53.5 s Normal 39.5-54.2 [facility] Comment on above: Performed By: #### P TTHEP ####[facility] Hrkpjvfsnk1819 [place] [address]Dr. Farhat Elvis aPTT Coag (Bld) [Time] 126.9 s Critically high 39.5-54. 2 [facility] Comment on above: Performed By: #### P TTHEP ####[facility] Razrwgrdhy4226 [place] [address]Dr. Farhat Leal CBC AUTO DIFFon 09-20-2021 BASO # 0.1 103/ul Normal 0.0-0.1 [facility] Comment on above: Performed By: #### C BC ####[facility] Ergsvclpef9395 [place] [address]Dr. Farhat Leal Basophils/100 WBC (Bld) 0.7 % Normal 0.2-2.0 [facility] Comment on above: Performed By: #### C BC ####[facility] Fjrbnprgjj[address] [place], [place] [address]Dr. Farhat Leal EO # 0.2 103/ul Normal 0.0-0.7 [facility] Comment on above: Performed By: #### C BC ####[facility] Cjcsxcprge033[address] [place], [place] [address]Dr. Farhat Leal Eosinophils/100 WBC (Bld) 3.2 % Normal 0.9-7.0 [facility] Comment on above: Performed By: #### C BC ####[facility] Jztvqpyjoo654[address] [place], [place] [address]Dr. Farhat Leal Erythrocyte distribution width (RBC) [Ratio] 12.4 % Normal 11.0-15.0 [facility] Comment on above: Performed By: #### C BC ####[facility] Pitclqrwsv2264 [place] [address]Dr. Farhat Leal Hematocrit (Bld) [Volume fraction] 40.1 % Critically low 42.0-54.0 [facility] Comment on above: Performed By: #### C BC ####[facility] Pnfhfxktbr2092 [place] [phone]. Farhat Leal Hemoglobin (Bld) [Mass/Vol] 13.4 g/dL Critically low 14.0-18.0 [facility] Comment on above: Performed By: #### C BC ####[facility] Ygwtycvlvc1772 [place] [address]Dr. Farhat Leal IG # 0.08 10e3/ul Critically high 0.00-0.03 [facility] Comment on above: Performed By: #### C BC ####[facility] Otmgigjmrp2074 [place] [address]Dr. Farhat Leal IG % 1.1 % Critically high 0.0-0.5 [facility] Comment on above: Performed By: #### C BC ####[facility] Niaccmycea56[address] [place], [place] [address]DrSkylar Farhat Leal LYMPH # 1.3 103/ul Normal 1.2-3.8 [facility] Comment on above: Performed By: #### C BC ####[facility] Jnqmyzdrid0036 [place] [address]Dr. Farhat Leal Lymphocytes/100 WBC (Bld) 17.3 % Critically low 20.5-60.0 [facility] Comment on above: Performed By: #### C BC ####[facility] Fjgpdpmild9420 [place] [address]Dr. Farhat Leal MANUAL DIFF REQ NO Normal [facility] Comment on above: Performed By: #### C BC ####[facility] Fpmgrkhvkz6980 [place] [address]Dr. Farhat Leal MCH (RBC) [Entitic mass] 31.2 pg Normal 25.9-34.0 [facility] Comment on above: Performed By: #### C BC ####[facility] Jlodyhvnyl6208 [place] [phone]. Farhat Leal MCHC (RBC) [Mass/Vol] 33.4 g/dL Normal 29.9-35.2 [facility] Comment on above: Performed By: #### C BC ####[facility] Xfhfhmbnxk3107 [place] [phone]. Farhat Leal MCV (RBC) [Entitic vol] 93.3 fL Normal 80.0-94.0 [facility] Comment on above: Performed By: #### C BC ####[facility] Fsffqoruxv9515 [place] [phone]. Farhat Leal MONO # 0.9 103/ul Critically high 0.3-0.8 [facility] Comment on above: Performed By: #### C BC ####[facility] Jmfygtssij9470 [place] [address]Dr. Farhat Leal Monocytes/100 WBC (Bld) 12.4 % Critically high 1.7-12.0 [facility] Comment on above: Performed By: #### C BC ####[facility] Mepullaqfs11[address] [place], [place] [address]Dr. Farhat Leal NEUT # 4.7 103/ul Normal 1.4-6.5 [facility] Comment on above: Performed By: #### C BC ####[facility] Aeovtkxrgp[address] [place], [place] [address]Dr. Farhat Leal Neutrophils/100 WBC (Bld) 65.3 % Normal 43.0-75.0 [facility] Comment on above: Performed By: #### C BC ####[facility] Ycptzumqlp1715 [place] [address]Dr. Farhat Leal Platelet mean volume (Bld) [Entitic vol] 9.9 fL Normal 9.5-13.5 [facility] Comment on above: Performed By: #### C BC ####[facility] Eqcjhshqfc8530 [place] [phone]. Farhat Leal PLT 180 103/ul Normal 150-450 [facility] Comment on above: Performed By: #### C BC ####[facility] Tipncwfzgx3621 [place] [phone]. Madelynlorri Elvis RBC 4.30 106/ul Critically low 4.70-6.10 [facility] Comment on above: Performed By: #### C BC ####[facility] Madwbitude2149 [place] [address]Dr. Farhat Leal WBC 7.2 103/ul Normal 4.0-11.0 [facility] Comment on above: Performed By: #### C BC ####[facility] Ktjsgkyllc[address] [place], [place] [address]Dr. Farhat Elvis PTT HEPARIN MONITORon 2021 aPTT Coag (Bld) [Time] 26.7 s Critically low 39.5-54.2 [facility] Comment on above: Performed By: #### P TTHEP ####[facility] Xksufatzby560[address] [place], [place] [address]Dr. Farhat Elvis aPTT Coag (Bld) [Time] 121.0 s Critically high 39.5-54. 2 [facility] Comment on above: Performed By: #### P TTHEP ####[facility] Hogiowuftk8[address] [place], [place] [address]Dr. Farhat Elvis aPTT Coag (Bld) [Time] 27.6 s Critically low 39.5-54.2 [facility] Comment on above: Performed By: #### P TTHEP ####[facility] Eblizuexwq17[address] [place], [place] [address]Dr. Farhat Elvis aPTT Coag (Bld) [Time] 139.0 s Critically high 39.5-54. 2 [facility] Comment on above: Performed By: #### P TTHEP ####[facility] Mqojkreodi8[address] [place], [place] [address]Dr. Farhat Elvis CBC AUTO DIFFon 09-19-2021 BASO # 0.0 103/ul Normal 0.0-0.1 [facility] Comment on above: Performed By: #### C BC ####[facility] Sqadveydrb76[address] [place], [place] [address]Dr. Farhat Leal Basophils/100 WBC (Bld) 0.5 % Normal 0.2-2.0 [facility] Comment on above: Performed By: #### C BC ####[facility] Nfgqwvruuv4034 [place] [phone]. Farhat Leal EO # 0.2 103/ul Normal 0.0-0.7 [facility] Comment on above: Performed By: #### C BC ####[facility] Lacpexyjly4275 [place] [phone]. Farhat Leal Eosinophils/100 WBC (Bld) 2.6 % Normal 0.9-7.0 [facility] Comment on above: Performed By: #### C BC ####[facility] Cuzeycsqzq4564 [place] [address]Dr. Farhat Leal Erythrocyte distribution width (RBC) [Ratio] 12.5 % Normal 11.0-15.0 [facility] Comment on above: Performed By: #### C BC ####[facility] Xpkydqzhsi27[address] [place], [place] [address]Dr. Farhat Leal Hematocrit (Bld) [Volume fraction] 39.2 % Critically low 42.0-54.0 [facility] Comment on above: Performed By: #### C BC ####[facility] Ecmgxctwuo9778 [place] [address]Dr. Farhat Leal Hemoglobin (Bld) [Mass/Vol] 13.3 g/dL Critically low 14.0-18.0 [facility] Comment on above: Performed By: #### C BC ####[facility] Hatnmqfntm9558 [place] [address]Dr. Farhat Leal IG # 0.08 10e3/ul Critically high 0.00-0.03 [facility] Comment on above: Performed By: #### C BC ####[facility] Snskjteiag3998 [place] [address]Dr. Farhat Leal IG % 0.9 % Critically high 0.0-0.5 [facility] Comment on above: Performed By: #### C BC ####[facility] Zbjrqgyizb544[address] [place], [place] [address]Dr. Farhat Leal LYMPH # 1.5 103/ul Normal 1.2-3.8 [facility] Comment on above: Performed By: #### C BC ####[facility] Fcqlzbyrkp6268 [place] [phone]. Farhat Leal Lymphocytes/100 WBC (Bld) 17.2 % Critically low 20.5-60.0 [facility] Comment on above: Performed By: #### C BC ####[facility] Tgzwjxxoxp6890 [place] [phone]. Madelynlorri Leal MANUAL DIFF REQ NO Normal [facility] Comment on above: Performed By: #### C BC ####[facility] Mjhxdsxhef4923 [place] [phone]. Farhat Elvis MCH (RBC) [Entitic mass] 31.7 pg Normal 25.9-34.0 [facility] Comment on above: Performed By: #### C BC ####[facility] Hbiacsfwmu214[address] [place], [place] [address]Dr. Madelynlorri Leal MCHC (RBC) [Mass/Vol] 33.9 g/dL Normal 29.9-35.2 [facility] Comment on above: Performed By: #### C BC ####[facility] Zrdrkboobo75[address] [place], [place] [address]Dr. Farhat Elvis MCV (RBC) [Entitic vol] 93.3 fL Normal 80.0-94.0 [facility] Comment on above: Performed By: #### C BC ####[facility] Ovsicvmtwc8893 [place] [address]Dr. Farhat Leal MONO # 1.2 103/ul Critically high 0.3-0.8 [facility] Comment on above: Performed By: #### C BC ####[facility] Pbnztlvrqy[address] [place], [place] [address]Dr. Madelynlorri Leal Monocytes/100 WBC (Bld) 13.7 % Critically high 1.7-12.0 [facility] Comment on above: Performed By: #### C BC ####[facility] Mzynowkwji[address] [place], [place] [address]Dr. Farhat Leal NEUT # 5.5 103/ul Normal 1.4-6.5 [facility] Comment on above: Performed By: #### C BC ####[facility] Asmjbfdubn6941 [place] [phone]. Farhat Leal Neutrophils/100 WBC (Bld) 65.1 % Normal 43.0-75.0 [facility] Comment on above: Performed By: #### C BC ####[facility] Qwibqclvxt7963 [place] [phone]. Farhat Leal Platelet mean volume (Bld) [Entitic vol] 9.6 fL Normal 9.5-13.5 [facility] Comment on above: Performed By: #### C BC ####[facility] Mjxvoxgkyd3647 [place] [address]Dr. Farhat Leal PLT 163 103/ul Normal 150-450 [facility] Comment on above: Performed By: #### C BC ####[facility] Csgfhiumue0076 [place] [address]Dr. Farhat Leal RBC 4.20 106/ul Critically low 4.70-6.10 [facility] Comment on above: Performed By: #### C BC ####[facility] Eujfsemstg36[address] [place], [place] [address]Dr. Farhat Leal WBC 8.4 103/ul Normal 4.0-11.0 [facility] Comment on above: Performed By: #### C BC ####[facility] Jxmqipjsdr7669 [place] [address]Dr. Farhat Leal POINT OF CARE GLUCOSEon Glucose [Mass/Vol] 300 mg/dL Critically high 74-[address] [facility] Comment on above: Performed By: #### P OCGLUC ####[facility] Zdblaidozp538[address] [place], [place] [address]Dr. Farhat Leal POTASSIUMon 09-19-2021 Potassium [Moles/Vol] 4.9 mmol/L Normal 3.5-5.1 [facility] Comment on above: Performed By: #### K ####[facility] Ztaclsosie74[address] [place], [place] [address]Dr. Farhat Leal PTT HEPARIN MONITORon 2021 aPTT Coag (Bld) [Time] 23.4 s Critically low 39.5-54.2 [facility] Comment on above: Result Comment: repe ated Performed By: #### P TTHEP ####[facility] Mrwyzwvdnj229[address] [place], [place] [address]Dr. Farhat Leal aPTT Coag (Bld) [Time] 101.2 s Critically high 39.5-54. 2 [facility] Comment on above: Performed By: #### P TTHEP ####[facility] Gyatzmdnvq880[address] [place], [place] [address]Dr. Farhat Leal aPTT Coag (Bld) [Time] 81.0 s Critically high 39.5-54. 2 [facility] Comment on above: Result Comment: Test Repeated. Critical Value Verified Performed By: #### P TTHEP ####[facility] Gcigkrsikp04[address] [place], [place] [address]Dr. Farhat Elvis CBC AUTO DIFFon 09-18-2021 BASO # 0.0 103/ul Normal 0.0-0.1 [facility] Comment on above: Performed By: #### C BC ####[facility] Jmzycwmvdk4[address] [place], [place] [address]Dr. Madelynlorri Leal Basophils/100 WBC (Bld) 0.4 % Normal 0.2-2.0 [facility] Comment on above: Performed By: #### C BC ####[facility] Pvzsndrrha7[address] [place], [place] [address]Dr. Farhat Leal EO # 0.1 103/ul Normal 0.0-0.7 [facility] Comment on above: Performed By: #### C BC ####[facility] Rrpjrowcxf826[address] [place], [place] [address]Dr. Madelynlorri Leal Eosinophils/100 WBC (Bld) 0.8 % Critically low 0.9-7.0 [facility] Comment on above: Performed By: #### C BC ####[facility] Qpxosbglhe308[address] [place], [place] [address]Dr. Farhat Leal Erythrocyte distribution width (RBC) [Ratio] 12.4 % Normal 11.0-15.0 [facility] Comment on above: Performed By: #### C BC ####[facility] Sboujhapdd6698 [place] [address]Dr. Farhat Leal Hematocrit (Bld) [Volume fraction] 41.7 % Critically low 42.0-54.0 [facility] Comment on above: Performed By: #### C BC ####[facility] Bgfmpzpjhs9854 [place] [address]Dr. Farhat Leal Hemoglobin (Bld) [Mass/Vol] 14.1 g/dL Normal 14.0-18.0 [facility] Comment on above: Performed By: #### C BC ####[facility] Ozghdavcdp032[address] [place], [place] [address]Dr. Madelynlorri Elvis IG # 0.06 10e3/ul Critically high 0.00-0.03 [facility] Comment on above: Performed By: #### C BC ####[facility] [address] [place], [place] [address]DrSkylar Leal IG % 0.6 % Critically high 0.0-0.5 [facility] Comment on above: Performed By: #### C BC ####[facility] Mzgiemzlbr[address] [place], [place] [address]DrSkylar Farhat Elvis LYMPH # 0.6 103/ul Critically low 1.2-3.8 [facility] Comment on above: Performed By: #### C BC ####[facility] Mxckulqqub[address] [place], [place] [address]DrSkylar Leal Lymphocytes/100 WBC (Bld) 6.5 % Critically low 20.5-60.0 [facility] Comment on above: Performed By: #### C BC ####[facility] Avmgtvxahp[address] [place], [place] [address]DrSkylar Leal MANUAL DIFF REQ NO Normal [facility] Comment on above: Performed By: #### C BC ####[facility] Jfwmrgaemb7729[address] [place], [place] [address]DrSkylar Leal MCH (RBC) [Entitic mass] 31.6 pg Normal 25.9-34.0 [facility] Comment on above: Performed By: #### C BC ####[facility] Beczikokdd[address] [place] [id number]. Farhat Elvis MCHC (RBC) [Mass/Vol] 33.8 g/dL Normal 29.9-35.2 [facility] Comment on above: Performed By: #### C BC ####[facility] Hnlztqiueh5866 [place] [phone]. Madelynlorri Elvis MCV (RBC) [Entitic vol] 93.5 fL Normal 80.0-94.0 [facility] Comment on above: Performed By: #### C BC ####[facility] Ibaokoyqpj1330 [place] [address]Dr. Farhat Leal MONO # 1.0 103/ul Critically high 0.3-0.8 [facility] Comment on above: Performed By: #### C BC ####[facility] Olxafpfofj[address] [place], [place] [address]Dr. Farhat Leal Monocytes/100 WBC (Bld) 10.4 % Normal 1.7-12.0 [facility] Comment on above: Performed By: #### C BC ####[facility] Pzwqwdgovh63[address] [place], [place] [address]Dr. Farhat Leal NEUT # 7.8 103/ul Critically high 1.4-6.5 [facility] Comment on above: Performed By: #### C BC ####[facility] Lawzmabjoh8[address] [place], [place] [address]Dr. Farhat Leal Neutrophils/100 WBC (Bld) 81.3 % Critically high 43.0-75.0 [facility] Comment on above: Performed By: #### C BC ####[facility] Jxolftmwym255[address] [place], [place] [address]Dr. Farhat Leal Platelet mean volume (Bld) [Entitic vol] 9.9 fL Normal 9.5-13.5 [facility] Comment on above: Performed By: #### C BC ####[facility] Veqqytzhgj[address] [place], [place] [address]Dr. Farhat Leal PLT 169 103/ul Normal 150-450 [facility] Comment on above: Performed By: #### C BC ####[facility] Pywhlxthko5363 [place] [phone]. Farhat Elvis RBC 4.46 106/ul Critically low 4.70-6.10 [facility] Comment on above: Performed By: #### C BC ####[facility] Idmadannmx9805 [place] [phone]. Madelynlorri Leal WBC 9.6 103/ul Normal 4.0-11.0 [facility] Comment on above: Performed By: #### C BC ####[facility] Zkjecaeiui7197 [place] [phone]. Farhat Elvis BASO # 0.0 103/ul Normal 0.0-0.1 [facility] Comment on above: Performed By: #### C BC ####[facility] Tfhbqybiug4404 [place] [phone]. Farhat Leal Basophils/100 WBC (Bld) 0.4 % Normal 0.2-2.0 [facility] Comment on above: Performed By: #### C BC ####[facility] Afcwofarbj3694 [place] [phone]. Madelynlorri Leal EO # 0.1 103/ul Normal 0.0-0.7 [facility] Comment on above: Performed By: #### C BC ####[facility] Nnawngkerx8403 [place] [phone]. Farhat Leal Eosinophils/100 WBC (Bld) 1.1 % Normal 0.9-7.0 [facility] Comment on above: Performed By: #### C BC ####[facility] Epzigybjgb1865 [place] [phone]. Madelynlorri Leal Erythrocyte distribution width (RBC) [Ratio] 12.6 % Normal 11.0-15.0 [facility] Comment on above: Performed By: #### C BC ####[facility] Ttrsmusfgs6792 [place] [phone]. Farhat Leal Hematocrit (Bld) [Volume fraction] 40.8 % Critically low 42.0-54.0 [facility] Comment on above: Performed By: #### C BC ####[facility] Qvvjxmnwog8962 [place] [address]Dr. Farhat Leal Hemoglobin (Bld) [Mass/Vol] 13.6 g/dL Critically low 14.0-18.0 [facility] Comment on above: Performed By: #### C BC ####[facility] Ptskaclnki7852 [place] [address]Dr. Farhat Leal IG # 0.08 10e3/ul Critically high 0.00-0.03 [facility] Comment on above: Performed By: #### C BC ####[facility] Iqdcgimhbo4818 [place] [address]Dr. Farhat Leal IG % 0.9 % Critically high 0.0-0.5 [facility] Comment on above: Performed By: #### C BC ####[facility] Jvbluqxk[address] [place], [place] [address]Dr. Farhat Elvis LYMPH # 0.8 103/ul Critically low 1.2-3.8 [facility] Comment on above: Performed By: #### C BC ####[facility] Hgcukogsvc5984 [place] [address]Dr. Farhat Elvis Lymphocytes/100 WBC (Bld) 8.7 % Critically low 20.5-60.0 [facility] Comment on above: Performed By: #### C BC ####[facility] Fovglqhzqg0042 [place] [address]Dr. Farhat Elvis MANUAL DIFF REQ NO Normal [facility] Comment on above: Performed By: #### C BC ####[facility] Xayaylecvq6908 [place] [phone]. Farhat Leal MCH (RBC) [Entitic mass] 31.6 pg Normal 25.9-34.0 [facility] Comment on above: Performed By: #### C BC ####[facility] Hdqddeqiqh8868 [place] [address]Dr. Farhat Elvis MCHC (RBC) [Mass/Vol] 33.3 g/dL Normal 29.9-35.2 [facility] Comment on above: Performed By: #### C BC ####[facility] Szsvdpretx9052 [place] [phone] Farhat Leal MCV (RBC) [Entitic vol] 94.9 fL Critically high 80.0-94.0 [facility] Comment on above: Performed By: #### C BC ####[facility] Rgqxgisvwm2631 [place] [phone] Farhat Elvis MONO # 1.0 103/ul Critically high 0.3-0.8 [facility] Comment on above: Performed By: #### C BC ####[facility] Qzzrwllhzv1954 [place] [address]Dr. Madelynlorri Leal Monocytes/100 WBC (Bld) 11.3 % Normal 1.7-12.0 [facility] Comment on above: Performed By: #### C BC ####[facility] Ixgqalgamz4513 [place] [address]Dr. Madelynlorri Leal NEUT # 6.9 103/ul Critically high 1.4-6.5 [facility] Comment on above: Performed By: #### C BC ####[facility] Azqpqnzmfb3892 [place] [address]Dr. Farhat Elvis Neutrophils/100 WBC (Bld) 77.6 % Critically high 43.0-75.0 [facility] Comment on above: Performed By: #### C BC ####[facility] Dvmyumgfhx0188 [place] [address]Dr. Farhat Elvis Platelet mean volume (Bld) [Entitic vol] 9.7 fL Normal 9.5-13.5 [facility] Comment on above: Performed By: #### C BC ####[facility] Zglwqtyuut0859 [place] [phone]. Farhat Leal PLT 171 103/ul Normal 150-450 [facility] Comment on above: Performed By: #### C BC ####[facility] Evckddkndn2473 [place] [phone] Leal RBC 4.30 106/ul Critically low 4.70-6.10 [facility] Comment on above: Performed By: #### C BC ####[facility] Phtyugrrrt16[address] [place], [place] [address]Js. Farhat Leal WBC 8.9 103/ul Normal 4.0-11.0 [facility] Comment on above: Performed By: #### C BC ####[facility] Zlcoqhnajs[address] [place], [place] [address]Ka. Farhat Leal Covid-19 PCR (CVDTBH)on SARS-CoV-2 (COVID-19) RNA JOSH+probe Ql (Unsp spec) Not detected Normal NOT DETECTED [facility] Comment on above: Result Comment: When [...] for this test is supported by the [place] of [employer] and Human Service's declaration that [...] Performed By: #### C VDTBH ####[facility] Ezbkklxzjs8318 [place] [phone]. Farhat Leal PROF 14(COMP METB)on 022 Albumin [Mass/Vol] 2.6 g/dL Critically low 3.4-5.0 Th e [facility] Comment on above: Performed By: #### C MP ####[facility] Dmsboaaqrh4184 [place], [place] [address]Ip. Farhat Leal Albumin/Globulin [Mass ratio] 0.7 {ratio} Normal [facility] Comment on above: Performed By: #### C MP ####[facility] Tjpgcayajp7875 [place] [phone]. Farhat Leal ALP [Catalytic activity/Vol] 88 U/L Normal 46-116 [facility] Comment on above: Performed By: #### C MP ####[facility] Bvbttrohcs0003 [place] [phone]. Farhat Leal ALT [Catalytic activity/Vol] 15 U/L Critically low 16-63 [facility] Comment on above: Performed By: #### C MP ####[facility] Eyfazassam7514 [place] [phone]. Farhat Leal Anion gap [Moles/Vol] 11.7 mmol/L Normal [facility] Comment on above: Performed By: #### C MP ####[facility] Epovihmnkw0286 [place] [address]Dr. Farhat Leal AST [Catalytic activity/Vol] 25 U/L Normal 15-37 [facility] Comment on above: Performed By: #### C MP ####[facility] Ckfmmlcdmj5098 [place] [address]Dr. Farhat Leal Bilirubin [Mass/Vol] 0.6 mg/dL Normal 0.2-1.0 [facility] Comment on above: Performed By: #### C MP ####[facility] Hmqpqhvkmx2860 [place] [address]Dr. Farhat Leal Calcium [Mass/Vol] 8.9 mg/dL Normal 8.5-10.1 [facility] Comment on above: Performed By: #### C MP ####[facility] Ayiiewnrrb5559 [place] [phone]. Farhat Leal Chloride [Moles/Vol] 93 mmol/L Critically low 98-107 [facility] Comment on above: Performed By: #### C MP ####[facility] Qahqclqciq9154 [place] [address]Dr. Farhat Leal CO2 [Moles/Vol] 28.9 mmol/L Normal 21.0-32.0 [facility] Comment on above: Performed By: #### C MP ####[facility] Rpmumouifp9574 [place], [place] [address]Wh. Farhat Leal Creatinine [Mass/Vol] 2.09 mg/dL Critically high 0.70-1.30 [facility] Comment on above: Performed By: #### C MP ####[facility] Wpnrzdqfmu5212 [place], [place] [address]Tx. Farhat Leal EGFR-AF GEORGIAN 38 mL/min/1.73m2 Critically low >=60 [facility] Comment on above: Performed By: #### C MP ####[facility] Mpawcficuw5357 [place] [phone]. Farhat Leal EGFR-NON AF GEORGIAN 31 mL/min/1.73m2 Critically low >=60 [facility] Comment on above: Performed By: #### C MP ####[facility] Nhplwtntki2237 [place] [phone]. Farhat Leal Globulin (S) [Mass/Vol] 3.7 g/dL Normal [facility] Comment on above: Performed By: #### C MP ####[facility] Lrdvhtqnll5367 [place] [phone]. Farhat Leal Glucose [Mass/Vol] 214 mg/dL Critically high 74-106 [facility] Comment on above: Performed By: #### C MP ####[facility] Edlpgctrta4210 [place] [phone]. Farhat Leal Potassium [Moles/Vol] 5.6 mmol/L Critically high 3.5-5.1 [facility] Comment on above: Performed By: #### C MP ####[facility] Strjkycsci6457 [place] [phone]. Farhat Leal Protein [Mass/Vol] 6.3 g/dL Critically low 6.4-8.2 [facility] Comment on above: Performed By: #### C MP ####[facility] Vwkqngjvor6209 [place] [phone]. Farhat Leal Sodium [Moles/Vol] 128 mmol/L Critically low 136-145 [facility] Comment on above: Performed By: #### C MP ####[facility] Didqrazevn0825 [place] [phone]. Farhat Leal Urea nitrogen [Mass/Vol] 65.0 mg/dL Critically high 7.0-18.0 [facility] Comment on above: Performed By: #### C MP ####[facility] Jbxhrtlhav3072 [place] [phone]. Farhat Elvis Urea nitrogen/Creatinine [Mass ratio] 31.1 mg/mg Normal [facility] Comment on above: Performed By: #### C MP ####[facility] Gpvxwzxvcd[address] [place], [place] [address]Dr. Farhat Leal Albumin [Mass/Vol] 2.5 g/dL Critically low 3.4-5.0 Th [facility] Comment on above: Performed By: #### T MYRIAM, CMP ####[facility] Fwkozcvawy[address] [place], [place] [address]Dr. Farhat Leal Albumin/Globulin [Mass ratio] 0.7 {ratio} Normal [facility] Comment on above: Performed By: #### T MYRIAM, CMP ####[facility] Zfekpqswyu38[address] [place], [place] [address]Dr. Farhat Elvis ALP [Catalytic activity/Vol] 83 U/L Normal 46-116 [facility] Comment on above: Performed By: #### T MYRIAM, CMP ####[facility] Toypdmwbaa823[address] [place], [place] [address]Dr. Farhat Leal ALT [Catalytic activity/Vol] 16 U/L Normal 16-63 [facility] Comment on above: Performed By: #### T SH, CMP ####[facility] Xbgdyeynuq103[address] [place], [place] [address]Dr. Madelynlorri Elvis Anion gap [Moles/Vol] 9.7 mmol/L Normal [facility] Comment on above: Performed By: #### T SH, CMP ####[facility] Szpghadyed06[address] [place], [place] [address]Dr. Farhat Leal AST [Catalytic activity/Vol] 27 U/L Normal 15-37 [facility] Comment on above: Performed By: #### T MYRIAM, CMP ####[facility] Sxgvldbbey5259 [place] [address]Dr. Farhat Leal Bilirubin [Mass/Vol] 0.5 mg/dL Normal 0.2-1.0 [facility] Comment on above: Performed By: #### T SH, CMP ####[facility] Ackkvucwen8835[address] [place], [place] [address]Dr. Farhat Leal Calcium [Mass/Vol] 8.8 mg/dL Normal 8.5-10.1 [facility] Comment on above: Performed By: #### T SH, CMP ####[facility] Jrgqjdfbpa9760[address] [place], [place] [address]Dr. Farhat Leal Chloride [Moles/Vol] 95 mmol/L Critically low 98-107 [facility] Comment on above: Performed By: #### T SH, CMP ####[facility] Sayvtgpznh46264[address] [place], [place] [address]Dr. Farhat Leal CO2 [Moles/Vol] 30.5 mmol/L Normal 21.0-32.0 [facility] Comment on above: Performed By: #### T SH, CMP ####[facility] Egjroibont804[address] [place], [place] [address]Dr. Farhat Leal Creatinine [Mass/Vol] 2.18 mg/dL Critically high 0.70-1.30 [facility] Comment on above: Performed By: #### T SH, CMP ####[facility] Qyyezqiwiw[address] [place], [place] [address]Dr. Farhat Leal EGFR-AF GEORGIAN 36 mL/min/1.73m2 Critically low >=60 [facility] Comment on above: Performed By: #### T SH, CMP ####[facility] Vvgarfabxc[address] [place], [place] [address]Dr. Farhat Leal EGFR-NON AF GEORGIAN 30 mL/min/1.73m2 Critically low >=60 [facility] Comment on above: Performed By: #### T SH, CMP ####[facility] Nouelznlmq712[address] [place], [place] [address]Dr. Farhat Leal Globulin (S) [Mass/Vol] 3.5 g/dL Normal [facility] Comment on above: Performed By: #### T SH, CMP ####[facility] Bpcllmdavi8025[address] [place], [place] [address]Dr. Farhat Leal Glucose [Mass/Vol] 141 mg/dL Critically high 74-106 T [facility] Comment on above: Performed By: #### T SH, CMP ####[facility] Tbaqiirntx770[address] [place], [place] [address]Dr. Farhat Leal Potassium [Moles/Vol] 5.2 mmol/L Critically high 3.5-5.1 [facility] Comment on above: Performed By: #### T SH, CMP ####[facility] Gdyvdembue0345[address] [place], [place] [address]Dr. Farhat Leal Protein [Mass/Vol] 6.0 g/dL Critically low 6.4-8.2 Th [facility] Comment on above: Performed By: #### T SH, CMP ####[facility] Wwenztwtxr[address] [place], [place] [address]Dr. Farhat Leal Sodium [Moles/Vol] 130 mmol/L Critically low 136-145 Th [facility] Comment on above: Performed By: #### T SH, CMP ####[facility] Jpfccorwzh509[address] [place], [place] [address]Dr. Farhat Leal Urea nitrogen [Mass/Vol] 63.0 mg/dL Critically high 7.0-18.0 [facility] Comment on above: Performed By: #### T SH, CMP ####[facility] Jmqzjwethb[address] [place], [place] [address]Dr. Farhat Leal Urea nitrogen/Creatinine [Mass ratio] 28.9 mg/mg [facility] Comment on above: Performed By: #### T SH, CMP ####[facility] Miylejohug87[address] [place], [place] [address]Dr. Farhat Leal PROTIMEon 09-18-2021 INR Coag (PPP) [Relative time] 1.06 {INR} Normal [facility] Comment on above: Performed By: #### P T, PTT ####[facility] Lovckzacui[address] [place], [place] [address]Dr. Farhat Leal INR GUIDELINES SEE BELOW Normal [facility] Comment on above: Result Comment: MALINA RED INR: 2.0 - 3.0 CONDITIONS NOT LISTED BELOW 2.5 - 3.5 FOR PROSTHETIC HEART VALVE REPLACEMENT 2.5 - 3.5 RECURRENT THROMBOSIS Performed By: #### P T, PTT ####[facility] Zmidynggtl0144 [place] [address]Dr. Farhat Leal PT Coag (PPP) [Time] 11.4 s Normal 9.0-11.6 [facility] Comment on above: Performed By: #### P T, PTT ####[facility] Ffzikokepd4779 [place] [address]Dr. Farhat Leal PTTon 09-18-2021 aPTT Coag (Bld) [Time] 27.9 s Normal 22.3-36.2 [facility] Comment on above: Performed By: #### P T, PTT ####[facility] Hrvkazrxql2499 [place] [address]Dr. Farhat Leal TSHon 09-18-2021 TSH 7.099 uIU/mL Critically high 0.358-3.740 [facility] Comment on above: Performed By: #### T SH, CMP ####[facility] Qftcysdwce7095 [place] [address]Dr. Farhat Leal US SALOME DOP LEG RTon 09-19-19 US SALOME DOP LEG RT Normal [facility] XR CHEST 1 Von 09-18-2021 XR CHEST 1 V Normal [facility] XR HIP RT 2 3V W PELVISon XR HIP RT 2 3V W PELVIS Normal [facility] Vital Signs Date Time Vital Sign Value Performing Clinician Facility 03-18-2023 13:37-0500 Body temperature 98.01 [degF] Greenwood Gentis Work Phone: [facility] 03-18-2023 13:37-0500 Diastolic blood pressure 64 mm[Hg] Greenwood Gentis Work Phone: [facility] 03-18-2023 13:37-0500 Heart rate 72 /min Ni Petznick DO Work Phone: [facility] 03-18-2023 13:37-0500 SaO2% (BldA) [Mass fraction] 98 % Ni Whiteznick DO Work Phone: [facility] 03-18-2023 13:37-0500 Systolic blood pressure 118 mm[Hg] Ni Sandhuick DO Work Phone: [facility] 07-20-2022 13:35-0400 Body temperature 97.4 [degF] DO Devon Ball Work Phone: [facility] 07-20-2022 13:35-0400 Diastolic blood pressure 50 mm[Hg] DO Devon Ball Work Phone: [facility] 07-20-2022 13:35-0400 Heart rate 67 /min DO Devon Ball Work Phone: [facility] 07-20-2022 13:35-0400 Respiratory rate 20 /min DO Devon Ball Work Phone: [facility] 07-20-2022 13:35-0400 Systolic blood pressure 98 mm[Hg] DO Devon Ball Work Phone: [facility] 06-29-2022 14:46-0400 Body height 193.04 cm DO Devon Ball Work Phone: [facility] 02-26-2022 13:11-0500 Body temperature 96.6 [degF] Hina Peterson MD Work Phone: [place] 02-26-2022 13:11-0500 Diastolic blood pressure 75 mm[Hg] Hina Peterson MD Work Phone: [place] 02-26-2022 13:11-0500 Heart rate 75 /min Hina Peterson MD Work Phone: [place] 02-26-2022 13:11-0500 Systolic blood pressure 88 mm[Hg] Hina Peterson MD Work Phone: [place] 02-05-2022 08:29-0500 Body temperature 96.69 [degF] [facility] Work Phone: [place] 02-05-2022 08:29-0500 Diastolic blood pressure 42 mm[Hg] [facility] Work Phone: [place] 02-05-2022 08:29-0500 Heart rate 79 /min [facility] Work Phone: [place] 02-05-2022 08:29-0500 SaO2% (BldA) [Mass fraction] 100 % [facility] Work Phone: [place] 02-05-2022 08:29-0500 Systolic blood pressure 72 mm[Hg] [facility] Work Phone: [place] 01-12-2022 11:00-0500 Diastolic blood pressure 54 mm[Hg] Alissa Major [employer]ICAL LATHE OPERATOR.[employer] B[employer]ING AGENT Work Phone: [place] 01-12-2022 11:00-0500 Heart rate 88 /min Alissa Major OPTICAL LATHE OPERATOR.BAIL BONDING AGENT Work Phone: [place] 01-12-2022 11:00-0500 SaO2% (BldA) [Mass fraction] 93 % Alissa Major OPTICAL LATHE OPERATOR.BAIL BONDING AGENT Work Phone: [place] 01-12-2022 11:00-0500 Systolic blood pressure 96 mm[Hg] Alissa Major OPTICAL LATHE OPERATOR.BAIL BONDING AGENT Work Phone: [place] 01-12-2022 10:12-0500 Body temperature 97.9 [degF] Alissa Major OPTICAL LATHE OPERATOR.BAIL BONDING AGENT Work Phone: [place] 01-12-2022 10:12-0500 Respiratory rate 18 /min Alissa Major OPTICAL LATHE OPERATOR.BAIL BONDING AGENT Work Phone: [place] 11-17-2021 15:59-0400 Body height 193 cm No Reeder DO Work Phone: [place] 11-17-2021 15:59-0400 Body weight 111.58 kg No Reeder DO Work Phone: [place] 11-17-2021 15:59-0400 Diastolic blood pressure 59 mm[Hg] No Reeder DO Work Phone: [place] 11-17-2021 15:59-0400 Heart rate 86 /min No Reeder DO Work Phone: [place] 11-17-2021 15:59-0400 SaO2% (BldA) [Mass fraction] 97 % No Reeder DO Work Phone: [place] 11-17-2021 15:59-0400 Systolic blood pressure 104 mm[Hg] No Reeder DO Work Phone: [place] Encounters Encounter Date Encounter Type Care Provider Facility Start: 06-17-2023 End: 06-17-2023 ambulatory NI CABRERA Not Available Start: 05-19-2023 End: 05-19-2023 ambulatory CAITY [facility] Start: 04-11-2023 End: 04-11-2023 ambulatory Devon Moreira Other [employer] Other Start: 04-11-2023 Telephone encounter Devon NUNEZ [facility] Start: 03-18-2023 End: 03-18-2023 ambulatory NI Demetrice CABRERA Not Available Start: 03-18-2023 End: 03-18-2023 Office outpatient visit 25 minutes Ni Cabrera DO Work Phone: [facility] 230 Comment on above: 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 ([facility]/HCC) (Primary Dx); 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 ([facility]/HCC); Type 1 diabetes mellitus with nephropathy ([facility]/HCC); Type 1 diabetes mellitus with hypoglycemia and without coma (CMS/HCC); 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 ([facility]/HCC) Start: 02-17-2023 End: 02-17-2023 ambulatory Devon Moreira Other [employer] Other Start: 02-17-2023 Telephone encounter Devon NUNEZ [facility] Start: 01-14-2023 End: 01-14-2023 ambulatory Devon Moreira Other [employer] Other Start: 01-14-2023 Sbsq nursing facil c are/day minor complj 15 min [facility] Start: 12-10-2022 End: 12-10-2022 ambulatory Devon Moreira Other [employer] Other Start: 12-10-2022 Sbsq nursing facil c are/day minor complj 15 min [facility] Start: 11-12-2022 End: 11-12-2022 ambulatory Devon Moreira Other [employer] Other Start: 11-12-2022 Sbsq nursing facil c are/day minor complj 15 min [facility] Start: 10-16-2022 Refill Asia Pike MD Work Phone: [facility] Comment on above: Med Change Request Start: 10-12-2022 End: 10-12-2022 ambulatory Devon Moreira Other [employer] Other Start: 10-12-2022 Telephone encounter Devon Moreira [facility] Start: 10-08-2022 End: 10-08-2022 ambulatory Devon Moreira Other [employer] Other Start: 10-08-2022 Sbsq nursing facil c are/day new problem 25 min [facility] Start: 09-22-2022 [facility] [place] Comment on above: Rx Refills Start: 09-10-2022 End: 09-10-2022 ambulatory Devon Moreira Other [employer] Other Start: 09-10-2022 Sbsq nursing facil c are/day new problem 25 min [facility] Start: 09-09-2022 End: 09-09-2022 ambulatory [facility] Start: 08-06-2022 End: 08-06-2022 ambulatory Devon Moreira Other [employer] Other Start: 08-06-2022 Sbsq nursing facil c are/day new problem [address] [facility] Start: 07-22-2022 End: 07-22-2022 ambulatory Devon Moreira Other [employer] Other Start: 07-22-2022 Telephone encounter [facility] Start: 07-20-2022 End: 07-20-2022 ambulatory Sadia Agiular Facility:[facility] Start: 07-20-2022 End: 07-20-2022 ambulatory DO Devon Moreira Work Phone: [facility] Work Phone: Start: 07-20-2022 End: 07-20-2022 Discharged Recurring DO Devon Moreira Work Phone: [facility] [place] Work Phone: Start: 07-13-2022 End: 07-13-[address] DEVON MOREIRA Facility:H1 Start: 07-10-2022 End: 07-10-[address] DEVON MOREIRA Facility:H1 Start: 07-03-2022 End: 07-03-[address] DEVON MOREIRA Facility:H1 Start: 06-26-2022 End: 06-26-[address] DEVON MOREIRA Facility:H1 Start: 06-26-2022 End: 06-26-[address] DEVON MOREIRA Facility:H1 Start: 06-25-2022 End: 06-25-2022 ambulatory Devon Moreira Other [employer] Other Start: 06-25-2022 Sbsq nursing facil c are/day minor complj 15 min [facility] Start: 06-19-2022 End: 06-19-[address] DEVON MOREIRA Facility:H1 Start: 06-15-2022 End: 07-15-2022 ambulatory SHAIKH Kate MURRAY Facility:H1 Start: 06-12-2022 End: 06-12-[address] DOCTOR WALSH Facility:H1 Start: 06-05-2022 Sbsq nursing facil c are/day new problem 25 min Devon Moreira [facility] Start: 06-05-2022 End: 06-05-[address] DEVON MOREIRA [facility] Other Start: 05-29-2022 End: 05-29-[address] DEVON MOREIRA Facility:H1 Start: 05-22-2022 End: 05-22-[address] DEVON MOREIRA Facility:H1 Start: 05-20-2022 End: 05-20-[address] DEVON MOREIRA Facility:H1 Start: 05-18-2022 End: 06-12-2022 ambulatory SHAIKH Kate MURRAY Facility:H1 Start: 05-15-2022 End: 05-15-[address] DEVON MOREIRA Facility:H1 Start: 05-13-2022 End: 05-13-2022 ambulatory Van Olivarez APRN.BAIL BONDING AGENT Work Phone: [facility] Medicine [facility] Comment on above: results Start: 05-13-2022 E-mail encounter fro m caregiver Van Olivarez APRN.BAIL BONDING AGENT Work Phone: [facility] Start: 05-08-2022 End: 05-08-[address] DEVON MOREIRA Facility:H1 Start: 05-07-2022 End: 05-07-2022 ambulatory Devon Moreira Other [employer] Other Start: 05-07-2022 Sbsq nursing facil c [...] Van cortes APRN.CNP Work Phone: Kidney Medicine [facility] Start: 04-01-2022 End: 04-01-[address] DEVON MOREIRA Facility:H1 Start: 03-22-2022 Refill Asia Pike MD Work Phone: [facility] Comment on above: Med Change Request Start: 03-21-2022 ambulatory SHAIKH aKte MURRAY Facilit y:H1 Start: 03-11-2022 End: 03-11-[address] DEVON MOREIRA Facility:H1 Start: 02-27-2022 Refill Samira Serna [facility] Comment on above: Rx Refills Start: 02-26-2022 End: 02-26-2022 ambulatory DEVON MOREIRA Facility:[facility] Start: 02-26-2022 End: 02-26-2022 Patient [...] Start: 02-05-2022 End: 02-06-2022 ambulatory ARTUR CHEN Facility:[facility] Start: 02-05-2022 End: 02-05-2022 Patient encounter procedure [facility] Work Phone: [facility] Comment on above: Kidney replaced by t ransplant (Primary Dx); 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; 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 Start: 01-26-2022 End: 01-26-[address] DEVON MOREIRA Facility:H1 Start: 01-20-2022 Telephone encounter Vna Olivarez APRN.BAIL BONDING AGENT Work Phone: Kidney Medicine [facility] Comment on above: Results Start: 01-19-2022 End: 01-19-[address] DEVON MOREIRA Facility:H1 Start: 01-16-2022 ambulatory SHAIKH Kate MURRAY Facilit y:H1 Start: 01-12-2022 End: 01-12-2022 Subsequent hospital visit by physician Alissa Chavira APRN.BAIL BONDING AGENT Work Phone: Angio Comment on above: ILIANA (acute kidney in jury) ([facility]) [N17.9] Start: 12-30-2021 End: 12-30-2021 ambulatory Paresh Fonseca MD Work Phone: Infectious Disease Comment on above: MRSA bacteremia (Arabella munira Dx); Diabetic foot ulcer with osteomyelitis (HCC) Start: 12-30-2021 End: 12-30-2021 Telemedicine consultation with patient Paresh Fonseca MD Work Phone: [facility] Start: 12-29-2021 End: 12-29-[address] DEVON [...] Start: 12-08-2021 Orders Only Artur Burger ry OPTICAL LATHE OPERATOR.BAIL BONDING AGENT Work Phone: Transplant Center Comment on above: Kidney replaced by t ransplant (Primary Dx) Start: 12-07-2021 ambulatory Paresh Fonseca MD Work Phone: [facility] Comment on above: CoPat Start (copat s top 12/27/21) Start: 12-05-2021 Telephone encounter Paresh Fonseca MD Work Phone: Infectious Disease Comment on above: Patient Update (evus held discussion/) Start: 12-01-2021 Follow-up encounter [facility] Provider [facility] Start: 12-01-2021 Patient encounter procedure [facility] Prov ider [place] Department Start: 11-23-2021 End: 11-28-2021 Evaluation and management of inpatient [facility] DONNATNSebastian Facility:H1 Start: 11-18-2021 End: 12-16-2021 ambulatory [facility] Facility:H1 Start: 11-17-2021 End: 11-17-2021 Patient encounter procedure No Reeder DO Work Phone: Vascular Medicine Comment on above: Acute deep vein thro mbosis (DVT) of proximal end of right lower extremity (HCC) (Primary Dx); PAD (peripheral artery disease) (HCC); Nonhealing ulcer of heel (HCC); Anticoagulation management encounter Start: 11-14-2021 End: 11-15-2021 ambulatory ASHLEY Cortes [facility] Facility:H1 Start: 10-24-2021 End: 11-15-2021 ambulatory [facility] Facility:H1 Start: 10-22-2021 End: 10-23-2021 ambulatory ASHLEY Sebastian LEWISSRINATH Facility:H1 Start: 10-06-2021 ambulatory Van cortes OPTICAL LATHE OPERATOR.BAIL BONDING AGENT Work Phone: [facility] Start: 09-30-2021 Refill Asia Pike MD Work Phone: [facility] Comment on above: Refill Request Start: 09-19-2021 End: 09-24-2021 Evaluation and management of inpatient DR PROSPER LEES Facility:H1 Start: 09-18-2021 End: 09-19-[address] DEVON MOREIRA Facility:H1 Start: 07-11-2021 Refill Asia Pike MD Work Phone: [facility] Comment on above: Refill Request Start: 06-05-2021 Telephone encounter Van Olivarez OPTICAL LATHE OPERATOR.BAIL BONDING AGENT Work Phone: [facility] Comment on above: Results Start: 02-05-2021 End: 02-13-2021 ambulatory UNKNOWN PROVIDER Facility:[facility] Procedures Date Procedure Procedure Detail Performing Clinician Start: 05-19-2023 Follow-up visit Follow-up CAITY IBRAHIM Start: 03-18-2023 Hemoglobin glycosyla rk a1c Ni Cabrera DO Work Phone: Start: 02-05-2022 Creatinine other source Asia Pike MD Work Phone: Start: 02-05-2022 Urnls dip stick/tabl et rgnt auto w/o microscopy Asia Pike MD Work Phone: Start: 01-12-2022 Prothrombin time Alissa Chavira OPTICAL LATHE OPERATOR.BAIL BONDING AGENT Work Phone: Start: 12-01-2021 PACEMAKER CLINIC CHECK [facility] Provider Start: 11-29-2021 Microscopic examinat ion of blood, culture DR PROSPER LEES Comment on above: Performed By: #### B [id number] ####[place] [id number]. Farhat Leal Start: 11-27-2021 Insertion of Infusio [...] of renal transplant KIDNEY TRANSPLANT STATUS Van Sher OPTICAL LATHE OPERATOR.BAIL BONDING AGENT Work Phone: History of renal transplant Kidney replaced by transplant Artur Chen OPTICAL LATHE OPERATOR.BAIL BONDING AGENT Work Phone: History of renal transplant Kidney replaced by transplant Kidney [facility] Work Phone: History of renal transplant Devon Moreira Other History of renal transplant Kidney replaced by transplant Asia Pike MD Work Phone: History of renal transplant Devon Moreira Other Plan of Treatment Date Care Activity Detail Author Start: 06-17-2023 End: 06-17-2023 Patient encounter procedure 06/17/2023 2:15 PM EDT Office Visit [facility] [address] [place] [address] Ni Cabrera DO [address] [place] [address] [facility] [address] Start: 06-16-2023 Hemoglobin A1c measurement Diabetes: Hemoglobin A1C [facility] Start: 02-26-2023 BP CONTROLLED (<130/80) BP CONTROLLE D (<130/80) [place] Start: 02-05-2023 BP CONTROLLED (<130/80) BP CONTROLLE D (<130/80) [place] Start: 01-12-2023 BP CONTROLLED (<130/80) BP CONTROLLE D (<130/80) [place] Start: 11-17-2022 BP CONTROLLED (<130/80) BP CONTROLLE D (<130/80) [place] Start: 10-16-2022 Influenza vaccination C [facility] Start: 05-15-2022 Medicare Annual Wellness (AWV) Medicare Annual Wellness (AWV) [facility] Start: 04-08-2022 BP CONTROLLED (<130/80) BP CONTROLLE D (<130/80) [place] Start: 02-15-2022 ADVANCE DIRECTIVE DISCUSSION ADVANCE DIRECTIVE DISCUSSION [place] Start: 02-15-2022 DEPRESSION ASSESSMENT DEPRESSION ASS ESSMENT [place] Start: 02-05-2022 COVID-19 VACCINE (5 - Yung risk series) COVID-19 VACCINE (5 - Yung risk series) [place] Start: 11-27-2021 COVID-19 VACCINE (4 - Booster for Yung series) COVID-19 VACCINE (4 - Booster for Yung series) [place] Start: 11-04-2021 Hemoglobin A1c/Hemoglobin.total in Blood HBA1C [place] Start: 10-16-2021 Influenza vaccination C [facility] Start: 03-26-2021 COVID-19 VACCINE (3 - Yung risk 3-dose series) COVID-19 VACCINE (3 - Yung risk 3-dose series) [place] Start: 03-26-2021 COVID-19 VACCINE (3 - Yung risk series) COVID-19 VACCINE (3 - Yung risk series) [place] Start: 02-15-2021 ADVANCE DIRECTIVE DISCUSSION ADVANCE DIRECTIVE DISCUSSION [place] Start: 02-15-2021 DEPRESSION ASSESSMENT DEPRESSION ASS ESSMENT [place] Start: 01-05-2016 Hepatitis B screening URINE AL BUMIN:CREATININE RATIO [place] Start: 07-31-2015 Pneumococcal Vaccine : 65+ Years (3 - PCV) Pneumococcal Vaccine: 65+ Years (3 - PCV) [facility] Start: 04-06-2015 Hemoglobin A1c/Hemoglobin.total in Blood HBA1C [place] Start: 11-22-2010 Hepatitis B surface antibody level LDL CHOLESTEROL [place] Start: 2009 ADULT PREVNAR-13 ADULT PREVNAR-13 Cl [facility] Start: 2009 PNEUMOVAX AGE 65 AND OVER WITH 5YR LOOKBACK (#1) PNEUMOVAX AGE 65 AND OVER WITH 5YR LOOKBACK (#1) [place] Start: 1994 SHINGRIX VACCINE (1 of 2) SHINGRIX VACCINE (1 of 2) [place] Start: 10-18-1963 HEPATITIS A (1 of 2 - Risk 2-dose series) HEPATITIS A (1 of 2 - Risk 2-dose series) [place] Start: 10-18-1963 Hepatitis A Vaccine (1 of 2 - Risk 2-dose series) Hepatitis A Vaccine (1 of 2 - Risk 2-dose series) [place] Start: 10-18-1963 SHINGRIX VACCINE (1 of 2) SHINGRIX VACCINE (1 of 2) [place] Start: 10-18-1963 Urine microalbumin profile [place] Start: 1962 ANNUAL PCP TEAM DIRECTOR OF PUBLIC HEALTH MATTHEW DISEASE VISIT ANNUAL PCP TEAM CHRONIC DISEASE VISIT [place] Start: 1956 Adult depression screening assessment DEPRESSION SCREENING [place] Start: 1954 3 comp foot exam completed DIABETIC FOOT EXAM [place] Start: 1954 Glaucoma screening Diabetes: R etinopathy Screening [facility] Start: 1954 Hepatitis C antibody , confirmatory test DILATED RETINAL EXAM [place] Start: 1950 Pneumococcal Vaccine : 65+ (1 - PCV) Pneumococcal Vaccine: 65+ (1 - PCV) [place] Start: 1950 PNEUMOCOCCAL: 65+ (1 - PCV) PNEUMOCOCCAL: 65+ (1 - PCV) [place] Start: 1945 HEPATITIS A (1 of 2 - Risk 2-dose series) HEPATITIS A (1 of 2 - Risk 2-dose series) [place] URINALYSIS, REFLEX MICROSCOPIC URINALYSIS, REFLEX MICROSCOPIC Lab Routine Screening for genitourinary condition Ordered: 10/06/2021 [facility] Work Phone: Comment on above: Ordered: 10/06/2021 URINALYSIS, REFLEX MICROSCOPIC URINALYSIS, REFLEX MICROSCOPIC Lab Routine Screening for genitourinary condition Ordered: 04/02/2022 [facility] Work Phone: Comment on above: Ordered: 04/02/2022 End: 11-17-2022 US LEG ARTERIAL PERIPH UNL VAS LAB US LEG ARTERIAL PERIPH UNL VAS LAB Vascular Lab Routine PAD (peripheral artery disease) (HCC) Nonhealing ulcer of heel (HCC) 1 Occurrences starting 11/17/2021 until 11/17/2022 [facility] Work Phone: Comment on above: 1 Occurrences starti ng 11/17/2021 until 11/17/2022 End: 11-17-2022 US LEG VEIN DVT UNL VAS LAB US LEG VEIN DVT UNL VAS LAB Vascular Lab Routine Acute deep vein thrombosis (DVT) of proximal end of right lower extremity (HCC) 1 Occurrences starting 11/17/2021 until 11/17/2022 [facility] Work Phone: Comment on above: 1 Occurrences starti ng 11/17/2021 until 11/17/2022 [facility] & VAS [facility] & VAS [facility] Immunizations Immunization Date Immunization Notes Care Provider Fa [facility] 12-11-2021 COVID-19 booster vaccine, age 12+ yr, bivalent (PFIZER-[email or web address]) Paresh Fonseca MD Work Phone: [place] 12-11-2021 influenza, high-dose , quadrivalent vaccine (FLUZONE HIGH DOSE QUADRIVALENT) Paresh Fonseca MD Work Phone: [place] 12-11-2021 influenza virus vaccine, unspecified formulation [facility] 10-24-2021 influenza, high dose seasonal, [...] influenza virus vaccine, unspecified formulation Van Olivarez OPTICAL LATHE OPERATOR.BAIL BONDING AGENT Work Phone: [place] 12-17-2007 influenza virus vaccine, unspecified formulation Van Larsebastian OPTICAL LATHE OPERATOR.BAIL BONDING AGENT Work Phone: [place] Work Phone: 02-11-2006 influenza virus vaccine, unspecified formulation Van Lard OPTICAL LATHE OPERATOR.BAIL BONDING AGENT Work Phone: [place] Work Phone: 12-07-2003 influenza virus vaccine, unspecified formulation Van Lard OPTICAL LATHE OPERATOR.[facility] Work Phone: [place] Work Phone: 12-07-2003 pneumococcal polysaccharide vaccine, 23 valent Van Olivarez OPTICAL LATHE OPERATOR.[facility] Work Phone: [place] Work Phone: NEGATED: Highlighted row has not occurred!12-10-2021 COVID-19 booster vaccine, age 12+ yr, bivalent (PFIZER-BIONTSensr.net) Paresh Fonseca MD Work Phone: [place] NEGATED: Highlighted row has not occurred!12-10-2021 influenza, high-dose, quadrivalent vaccine (FLUZONE HIGH DOSE QUADRIVALENT) Paresh Fonseca MD Work Phone: [place] Payers Date Payer Category Payer Medicare MEDICARE MEDICAR E A AND B [id number] 2009-Present [phone] [address] [address] [place] [address] Medicare [id number] 2009 Medicare [id number] .[id number] 2009 Unknown [employer] [place] MEDIC[place] SUPPLEMENT [id number] 2009-Present [phone] [id number] [place] [facility] [place] [address] Indemnity [id number] .[id number] 2009 Unknown [id number]. 1.13.159.2.7.3 .773223.315 2009 Unknown [id number] 2.16.8 40.1.765314.19 2009 Unknown [id number] 1959 Medicare [id number] 1959 Self-pay 1944 Unknown [id number] 2.16.840.1.151805.3.579.2.732 1944 Unknown [id number] 2.16.840.1.132553.3.579.2.593 1944 Unknown [id number] 2.16.840.1.843281.3.579.2.593 1944 Unknown [id number] 2.16.840.1.877241.3.579.2.593 1944 Unknown [id number] 2.16.840.1.134476.3.579.2.593 1944 Unknown [id number] 2.16.840.1.477438.3.579.2.593 1944 Unknown [id number] 2.16.840.1.074468.3.579.2.593 1944 Unknown [id number] 2.16.840.1.990027.3.579.2.593 1944 Unknown [id number] 2.16.840.1.974378.3.579.2.593 1944 Unknown [id number] 2.16.840.1.373536.3.579.2.593 1944 Unknown [id number] 2.16.840.1.197823.3.579.2.593 1944 Unknown [id number] 2.16.840.1.383647.3.579.2.593 1944 Unknown [id number] 2.16.840.1.186739.3.579.2.593 1944 Unknown [id number] 2.16.840.1.944148.3.579.2.593 1944 Unknown [id number] 2.16.840.1.037379.3.579.2.593 1944 Unknown [id number] 2.16.840.1.003205.3.579.2.593 1944 Unknown [id number] 2.16.840.1.777892.3.579.2.593 1944 Unknown [id number] 2.16.840.1.920234.3.579.2.593 1944 Unknown [id number] 2.16.840.1.196475.3.579.2.593 1944 Unknown [id number] 2.16.840.1.358492.3.579.2.593 1944 Unknown [id number] 2.16.840.1.358692.3.579.2.593 1944 Unknown [id number] 2.16.840.1.585410.3.579.2.593 1944 Unknown [id number] 2.16.840.1.636127.3.579.2.593 1944 Unknown [id number] 2.16.840.1.256738.3.579.2.593 1944 Unknown [id number] 2.16.840.1.479606.3.579.2.593 1944 Unknown [id number] 2.16.840.1.044442.3.579.2.593 1944 Unknown [id number] 2.16.840.1.401981.3.579.2.593 1944 Unknown [id number] 2.16.840.1.643392.3.579.2.593 1944 Unknown [id number] 2.16.840.1.696028.3.579.2.593 1944 Unknown [id number] 2.16.840.1.175344.3.579.2.593 1944 Unknown [id number] 2.16.840.1.660043.3.579.2.593 1944 Unknown [id number] 2.16.840.1.771359.3.579.2.593 1944 Unknown [id number] 2.16.840.1.211626.3.579.2.593 1944 Unknown [id number] 2.16.840.1.815757.3.579.2.593 1944 Unknown [id number] 2.16.840.1.623183.3.579.2.593 1944 Unknown [id number] 2.16.840.1.182905.3.579.2.593 1944 Unknown [id number] 2.16.840.1.735319.3.579.2.593 1944 Unknown [id number] 2.16.840.1.121386.3.579.2.593 1944 Unknown [id number] 2.16.840.1.154297.3.579.2.593 1944 Unknown [id number] 2.16.840.1.582392.3.579.2.593 1944 Unknown [id number] 2.16.840.1.671218.3.579.2.593 1944 Unknown [id number] 2.16.840.1.045953.3.579.2.593 1944 Unknown [id number] 2.16.840.1.400470.3.579.2.593 1944 Unknown [id number] 2.16.840.1.630481.3.579.2.593 1944 Unknown [id number] 2.16.840.1.729804.3.579.2.593 1944 Unknown [id number] 2.16.840.1.103714.3.579.2.593 1944 Unknown [id number] 2.16.840.1.904498.3.579.2.593 1944 Unknown [id number] 2.16.840.1.475508.3.579.2.125 9 1944 Unknown [id number] 2.16.840.1.524620.3.579.2.125 9 Medicare Medicare Outpatient [id number] 2T [id number] Unknown [id number] 2.16.840.1.743665.3.579.2.593 Unknown [id number] 2.16.840.1.759042.3.579.2.593 Unknown [id number] 2.16.840.1.844210.3.579.2.531 Social History Date Type Detail Facility Start: 03-09-2011 End: 07-07-2022 Tobacco smoking status NHIS Ex-smoker [place] Work Phone: End: 02-15-1975 History of tobacco use Current smoker [place] Work Phone: End: 02-15-1975 History of tobacco use Cigarette Smoker [place] Work Phone: Start: 04-08-2021 End: 02-26-2022 Alcohol intake Current drinker of alcohol (finding) [place] Start: 1945 Sex Assigned At Not on file C [facility] Start: 03-09-2011 End: 10-20-2022 Cigarettes smoked current (pack per day) - Reported 1 [place] Work Phone: Start: 03-09-2011 End: 02-26-2022 Tobacco use and exposure Smokeless tobacco non-user [place] Start: 09-25-2021 History SDOH Financial 5 [place] Start: 09-25-2021 History SDOH Food Worry 1 [place] Start: 09-25-2021 History SDOH Transpo rt Med 2 [place] Start: 09-14-2021 End: 01-12-2022 Exposure to SARS-CoV-2 (event) Not sure [place] Start: 02-26-2022 End: 10-20-2022 Sex Assigned At [place] Work Phone: Start: 1945 Sex Assigned At Male F [facility] How hard is it for y ou to pay for the very basics like food, housing, medical care, and heating Not hard at all [place] Work Phone: (I/We) worried shiloh er (my/our) food would run out before (I/we) got money to buy more. Never true [place] Work Phone: In the past 12 month s, was there a time when you were not able to pay the mortgage or rent on time? No [place] Work Phone: Start: 03-18-2023 Alcohol intake Ex-drinker (finding) [facility] How often to you hav e a drink containing alcohol? Never [facility] Medical Equipment Procedure Code Equipment Code Equipment Original Text Equipment Identifier Dates Tray Powerline S urecuff 5fr Polyurethane Catheter 1 Lumen Microintroducer - [id number] Start: 12-06-2021 Clinical Notes 06-05-2021 to 05-19-2023 Note Date & Type Note Facility 05-19-2023 Note [facility] Progress Note Reason for visit: follow [...] at about 50-60 systolic. patient with friend/ cdl bulk driver from facility, we will take patient to the ER for evaluation ---- --------- Per dr. Alvarez 03/2021 Mr. AlmonteValente , presents to clinic for routine follow [...] of the right coronary artery with robust dqan-ao-onquu collaterals. 5. Normal global left ventricular systolic [...] Follow up with Dr. Galvez in the [facility] in the next 2 weeks; he may follow up with Dr. Orosco as needed for interventional issues. 5. Follow up wi (more content not included)... [facility] 04-11-2023 Evaluation note Encounter Date Diagnosis [...] (ICD-10 - Z89.619) WC dependent. 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 He is being transported by a cdl bulk driver. 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 CONTINUOUS BLOOD GLUC SENSOR (GlossyBoxSTYLE SHAAN 14 DAY SENSOR) MISC Inject 1 [...] mouth in the morning. documented in this encounterSt. Louis Children's [id number] Evaluation note* Encounter Date Diagnosis Assessment Notes [...] are maintaining regular scheduled appts with their timekeeper. No bleeding complications Dec, Hyperlipidemia LDL goal [...] fluid balance and to avoid dehydration. Dec, nursing home (current) use of insulin (ICD-10 - Z79.4) [facility] Other 10-26-2023 Evaluation note* Encounter Date Diagnosis Assessment Notes Treatment Notes Treatment Clinical Notes Nov, Longstanding persistent atrial fibrillation (ICD-10 - I48.11) This patient is in NSR or rate controlled. This patient is anticoagulated to prevent thromboembolic events. They are maintaining regular scheduled appts with their timekeeper. No bleeding complications Nov, Hyperlipidemia LDL goal [...] Z94.0) Monthly labs to transplant clinic Nov, nursing home (current) use of insulin (ICD-10 - Z79.4) [facility] Other 09-28-2023 Evaluation note* Encounter Date Diagnosis [...] are maintaining regular scheduled appts with their timekeeper. No bleeding complications Oct, Type 1 diabetes [...] - Z94.0) Continue routine surveillance labs. 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 DX Code Needed. 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 No bleeding complications Sep, Type 1 diabetes [...] risk for cerebrovascular and cardiovascular disease. 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 Please review and advise. Ariadna Mcdowell, documented in this encounterCleveland [id number] Evaluation note* Encounter Date Diagnosis Assessment Notes Treatment Notes Treatment Clinical Notes Aug, Longstanding persistent atrial fibrillation (ICD-10 - I48.11) This patient is in NSR or rate controlled. This patient is anticoagulated to prevent thromboembolic events. They are maintaining regular scheduled appts with their timekeeper. No s/s bleeding Aug, Type 1 diabetes [...] risk for cerebrovascular and cardiovascular disease. Aug, nursing home (current) use of insulin (ICD-10 - Z79.4) Aug, Kidney transplant status (ICD-10 - Z94.0) Continue close surveillance w/ [employer] Other 07-26-2023 NoteUT Electrophysiology Consult Note Reason [...] at about 50-60 systolic. patient with friend/ cdl bulk driver from facility, we will take patient to the ER for evaluation --------- Per dr. Alvarez 03/2021 Mr. Almonte, Gamaliel , presents to clinic for routine follow [...] of the right coronary artery with robust exjm-fc-[id number] collaterals. 5. Normal global left ventricular systolic [...] Follow up with Dr. Galvez in the [facility] in the next 2 weeks; he may follow up with Dr. Orosco as needed for interventional issues. 5. Follow up with Dr. Devon Moreira as scheduled. PMH: Past Medical History: Diagnosis Date Abnormal ECG Arrhythmia Atrial fibrillation (CMS/HCC) Chronic kidney disease Coronary artery disease Diabetes mellitus (CMS/HCC) (more content not included)...[facility]07-26-2023 NotePatient here for 1.5 year follow up and device check. Lightheaded in the office today, as BP is very low. He denies chest pain, SOB, palpitations, and bleeding on warfarin. Had routine labs last week. Review of Systems Musculoskeletal: Positive for arthritis, joint pain and myalgias. Neurological: Positive for light-headedness. All other systems reviewed and are negative.[facility] 08-06-2022 Evaluation note* Encounter Date Diagnosis [...] are maintaining regular scheduled appts with their timekeeper. No bleeding complications Jul, Type 1 diabetes [...] risk for cerebrovascular and cardiovascular disease. 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 [address] [place] [address] Wound Center Provider Note Signed Patient: Alex Almonte MR#: [id number] : 1945 Acct:[id number] Age/Sex: 76 / M Copies to: DO Sadia Whyte, OPTICAL LATHE OPERATOR~ HPI Date of Visit Date of Visit: Date of Service: 06/29/2022 Time of Service: 14:45 Narrative HPI: 12/30/21 Alex is a 76 year old male presenting to [facility] wound care for aninitial visit for eval and treatment of a sacral/coccyx area pressure ulcer. He resides at [facility]. There is an ARRESTING GEAR OPERATOR present for the visit. Medicalhoney gel [...] his brief that was cleaned by this global technical writer as well as another nursing staff [...] from initial visit here Mode of Arrival/ Lithographic Retoucher Apprentice: Facility vehicle Assistive Device Used Today: Wheelchair and Indra Lives with:: Care/Nursing Facility Appetite Description: Within Normal Limits Who helps w/ dressing change?: Nursing Facility Why Do You Need Help?: Can't Reach Ulcer, Limited mobility and Taxing effort to leave home Smoking Status: Former smoker [facility] Medical History (Updated 03/03/22 @ 14:41 [...] Ulcer/Injury Staging: Unstageable Bed Appearance: Beefy Red, Towner, Yellow and Rolled Edges Percent of Wound [...] <Electronically signed by DAVID Aguilar> 06/29/22 144 [facility] Work Phone: 1(352) 584-330505-11-2023 Evaluation note* Encounter Date Diagnosis Assessment Notes [...] are maintaining regular scheduled appts with their timekeeper. No bleeding complications June, Hyperlipidemia LDL goal <100 (ICD-10 - E78.5) Instructed on diet and exercise with continued statin therapy.Discussed the beneficial effects of lowering cholesterol in reducing the risk for cerebrovascular and cardiovascular disease. June, nursing home (current) use of insulin (ICD-10 - Z79.4) June, Kidney transplant status (ICD-10 - Z94.0) No s/s rejection [facility] Other 04-24-2023 Progress note Author Sadia Aguilar [facility] June 08, 2022 2:10pm Note Date/Time June 08, 2022 2:[address] [facility] [address] [place] [address] Wound Center Provider Note Signed Patient: Alex Almonte MR#: [id number] : 1945 Acct:[id number] Age/Sex: 76 / M Copies to: DO Sadia Whyte APRN~ HPI Date of Visit Date of Visit: Date of Service: 06/08/2022 Time of Service: 14:07 Narrative HPI: 12/30/21 Alex is a 76 year old male presenting to [facility] wound care for aninitial visit for eval and treatment of a sacral/coccyx area pressure ulcer. He resides at [facility]. There is an ARRESTING GEAR OPERATOR present for the visit. Medicalhoney gel [...] his brief that was cleaned by this global technical writer as well as another nursing staff [...] from initial visit here Mode of Arrival/ Lithographic Retoucher Apprentice: Facility vehicle Assistive Device Used Today: Wheelchair and Indra Lives with:: Care/Nursing Facility Appetite Description: Within Normal Limits Who helps w/ dressing change?: Nursing Facility Why Do You Need Help?: Can't Reach Ulcer, Limited mobility and Taxing effort to leave home Smoking Status: Former smoker [facility] Medical History (Updated 03/03/22 @ 14:41 [...] Ulcer/Injury Staging: Unstageable Bed Appearance: Beefy Red, Towner, Yellow and Rolled Edges Percent of Wound [...] <Electronically signed by DAVID Aguilar> 06/08/22 14[address] [facility] Work Phone: 1(948) 138-566604-21-2023 Evaluation note* Encounter Date Diagnosis Assessment Notes [...] are maintaining regular scheduled appts with their timekeeper. May, nursing home (current) use of insulin (ICD-10 - Z79.4) May, Kidney transplant status (ICD-10 - Z94.0) routine labs per clinic. 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 No open ulcerations present Pain controlled [facility] Other 03-27-2023 Progress note Author Sadia Aguilar [facility] May 11, 2022 1:41pm Note Date/Time May 11, 2022 1:[address] [facility] [address] [place] [address] Wound Center Provider Note Signed Patient: Alex Almonte MR#: [id number] : 1945 Acct:[id number] Age/Sex: 76 / M Copies to: DO Sadia Whyte APRN~ HPI Date of Visit Date of Visit: Date of Service: 05/11/2022 Time of Service: 13:38 Narrative HPI: 12/30/21 Alex is a 76 year old male presenting to [facility] wound care for aninitial visit for eval and treatment of a sacral/coccyx area pressure ulcer. He resides at [facility]. There is an ARRESTING GEAR OPERATOR present for the visit. Medicalhoney gel [...] his brief that was cleaned by this global technical writer as well as another nursing staff [...] from initial visit here Mode of Arrival/ Lithographic Retoucher Apprentice: Facility vehicle Assistive Device Used Today: Wheelchair and Indra Lives with:: Care/Nursing Facility Appetite Description: Within Normal Limits Who helps w/ dressing change?: Nursing Facility Why Do You Need Help?: Can't Reach Ulcer, Limited mobility and Taxing effort to leave home Smoking Status: Former smoker [facility] Medical History (Updated 03/03/22 @ 14:41 by Sadia Copsey, OPTICAL LATHE OPERATOR) Below-knee amputation of right lower extremity Diabetes [...] Ulcer/Injury Staging: Unstageable Bed Appearance: Beefy Red, Towner and Yellow Percent of Wound Bed Granulated/Red: [...] <Electronically signed by DAVID Aguilar> 05/11/22 [address] [facility] Work Phone: [phone]) 701-933903-23-2023 Evaluation note* Encounter Date Diagnosis Assessment Notes [...] are maintaining regular scheduled appts with their timekeeper. Apr, Type 1 diabetes mellitus with hyperglycemia [...] are reviewed at the office visit Apr, nursing home (current) use of insulin (ICD-10 - Z79.4) Apr, Kidney transplant status (ICD-10 - Z94.0) Serial labs by clinic Hydrate, avoid NOLBERTO [facility] Other 03-10-2023 NoteHNO ID: [id number] Author: Keyur Brown MD Service: ? Author Type: Physician Type: Progress Notes Filed: 04/24/2022 10:32 AM Note Text: Encounter opened in error, patient not seen.[facility]02-28-2023 Progress note Author Sadia Aguilar [facility] April 14, 2022 2:19pm Note Date/Time April 14, 2022 2:18pm [facility] [address] [place] [address] Wound Center Provider Note Signed Patient: Alex Almonte MR#: [id number] : 1945 Acct:[id number] Age/Sex: 76 / M Copies to: DO Sadia Whyte APRN~ HPI Date of Visit Date of Visit: Date of Service: 04/14/2022 Time of Service: 14:18 Narrative HPI: 12/30/21 Alex is a 76 year old male presenting to [facility] wound care for aninitial visit for eval and treatment of a sacral/coccyx area pressure ulcer. He resides at [facility]. There is an ARRESTING GEAR OPERATOR present for the visit. Medicalhoney gel [...] his brief that was cleaned by this global technical writer as well as another nursing staff [...] from initial visit here Mode of Arrival/ Lithographic Retoucher Apprentice: Facility vehicle Assistive Device Used Today: Wheelchair and Indra Lives with:: Care/Nursing Facility Appetite Description: Within Normal Limits Who helps w/ dressing change?: Nursing Facility Why Do You Need Help?: Can't Reach Ulcer, Limited mobility and Taxing effort to leave home Smoking Status: Former smoker [facility] Medical History (Updated 03/03/22 @ 14:41 [...] Ulcer/Injury Staging: Unstageable Bed Appearance: Beefy Red, Towner and Yellow Percent of Wound Bed Granulated/Red: [...] By: <Electronically signed by DAVID Aguilar> 04/14/221418 [facility] Work Phone: 1(973) 459-770302-16-2023 NotePatient Outreach (KIMBERLY) ALEX ALMONTE ([id number]) 1945 M TRN Date Time Provider Department 04/02/22 VAN OLIVAREZ During your visit today, we recorded the following information about you: Allergies As of Date: 04/02/2022 Noted Allergy Reaction PYRIDOSTIGMINE BROMIDE 08/04/2021 8 - GI Upset Date Reviewed: 02/26/2022 Reviewed by: Braden Abel MA - Fully Assessed Visit Diagnosis:Screening for genitourinary condition [Z13.89] Order(s):URINALYSIS, REFLEX MICROSCOPIC [[id number]] Order #: [id number] Prescriptions as of 04/06/2022 - tacrolimus IR [...] by mouth daily with lunch. 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 Katina Duque documented in this encounterCenterville02-07-2023 Progress note Author Sadia Aguilar [facility] March 24, 2022 3:00pm Note Date/Time March 24, 2022 2 :59pm [facility] [address] [place] [address] Wound Center Provider Note Signed Patient: Alex Almonte MR#: [id number] : 1945 Acct:[id number] Age/Sex: 76 / M Copies to: Devon Moreira, Sadia Jeff, OPTICAL LATHE OPERATOR~ HPI Date of Visit Date of Visit: Date of Service: 03/24/2022 Time of Service: 14:58 Narrative HPI: 12/30/21 Alex is a 76 year old male presenting to [facility] wound care for aninitial visit for eval and treatment of a sacral/coccyx area pressure ulcer. He resides at [facility]. There is an ARRESTING GEAR OPERATOR present for the visit. Medicalhoney gel [...] his brief that was cleaned by this global technical writer as well as another nursing staff [...] from initial visit here Mode of Arrival/ Lithographic Retoucher Apprentice: Facility vehicle Assistive Device Used Today: Wheelchair and Indra Lives with:: Care/Nursing Facility Appetite Description: Within Normal Limits Who helps w/ dressing change?: Nursing Facility Why Do You Need Help?: Can't Reach Ulcer, Limited mobility and Taxing effort to leave home Smoking Status: Former smoker [facility] Medical History (Updated 03/03/22 @ 14:41 [...] Ulcer/Injury Staging: Unstageable Bed Appearance: Beefy Red, Towner and Yellow Percent of Wound Bed Granulated/Red: [...] <Electronically signed by DAVID Aguilar> 03/24/22 [address] [facility] Work Phone: [phone]) 877-346901-17-2023 Progress note Author Sadia Aguilar [facility] March 03, 2022 2:41pm Note Date/Time March 03, 2022 2 :41pm [facility] [address] [place] [address] Wound Center Provider Note Signed Patient: Alex Almonte MR#: [id number] : 1945 Acct:[id number] Age/Sex: 76 / M Copies to: DO Sadia Whyte APRN~ HPI Date of Visit Date of Visit: Date of Service: 03/03/2022 Time of Service: 14:38 Narrative HPI: 12/30/21 Alex is a 76 year old male presenting to [facility] wound care for aninitial visit for eval and treatment of a sacral/coccyx area pressure ulcer. He resides at [facility]. There is an ARRESTING GEAR OPERATOR present for the visit. Medicalhoney gel [...] his brief that was cleaned by this global technical writer as well as another nursing staff [...] from initial visit here Mode of Arrival/ Lithographic Retoucher Apprentice: Facility vehicle Assistive Device Used Today: Wheelchair and Indra Lives with:: Care/Nursing Facility Appetite Description: Within Normal Limits Who helps w/ dressing change?: Nursing Facility Why Do You Need Help?: Can't Reach Ulcer, Limited mobility and Taxing effort to leave home Smoking Status: Former smoker [facility] Medical History (Updated 03/03/22 @ 14:41 [...] Ulcer Pressure Ulcer/Injury Staging: Unstageable Bed Appearance: Towner and Yellow Percent of Wound Bed Granulated/Red: 90 Percent of Devitalized: 10 Length (cm): 2.2 Width (cm): 1.8 Depth (cm): 1.9 CM Sq: 3.960 Surrounding Tissue Appearance: Towner, Hyperpigmented and Satellite lesions Surrounding Tissue Temp: [...] <Electronically signed by DAVID Aguilar> 03/03/22 1441 [facility] Work Phone: [phone]) 626-575401-13-2023 Miscellaneous Notes* Telephone Encounter - RAUL Davidson - 02/27/2022 10:24 AM EST Patient phones requesting refills as follows: Per pts sister takes 1 mg in AM and 1 mg in PM Requested Prescriptions Pending Prescriptions Disp Refills tacrolimus IR (PROGRAF) 1 mg capsule Sig: Take 2 capsules by mouth DAILY (6 AM). Please review and advise. RAUL Davidson documented in this encounterCenterville01-12-2023 NoteHNO ID: [id number] Author: Hina Peterson MD Service: ? Author Type: Physician Type: Progress Notes Filed: 02/26/2022 4:31 PM Note Text: [facility] DEPARTMENT OF VASCULAR SURGERY OUTPATIENT VISIT DATE [...] of inupiat artery of extremity with ulceration ([facility] [...] by mouth daily with lunch. Magic Cup [place] with lunch aspirin, enteric coated (ASPIRIN, ENTERIC COATED) 81 mg EC tablet Take 1 tablet by mouth once daily. predniSONE (DELTASONE) 5 mg tablet TAKE 1 TABLET BY MOUTH EVERY DAY oxyCODONE IR (ROXICODONE) 5 mg immediate release tablet 1-2 tablets by ORAL/FEEDING TUBE route every 3 hours as needed. Food Supplement, Lactose-Free (ENSURE MAX (more content not included)... [facility]01-12-2023 History of Present illness Narrative* Hina Peterson MD - 02/26/2022 4:25 PM EST Images from the original note were not included. [facility] DEPARTMENT OF VASCULAR SURGERY OUTPATIENT VISIT DATE [...] by mouth daily with lunch. Magic Cup [place] with lunch aspirin, enteric coated (ASPIRIN, ENTERIC [...] 2022 TIME: 4:26 PM documented in this encounterCenterville01-05-2023 Miscellaneous Notes* Telephone Encounter - Gwen Beard [...] Home and cell number(Ask for Alex's nurse) [phone] Diagnosis 4 mo f/u wound check Yumiko Mcclain documented in this encounterCenterville01-05-2023 Miscellaneous Notes* Telephone Encounter - Augusta Medrano RN - 02/19/2022 11:11 AM EST Alex Almonte's nursing facility, [facility], called regarding elevated tacrolimus level (23.9). Spoke with bedside nurse, mukul Enriquez. Level is from last week- unable to clearly determine if medications were held prior to lab work. Reviewed with nurse morning labs should occur prior to lab draws. Patient is scheduled for repeat labs tomorrow. Will assess new level. Augusta Medrano RN documented in this encounterCenterville01-04-2023 Miscellaneous Notes* Telephone Encounter - Martina Rossi [...] advise. Mercedez Tavares MA documented in this encounterCenterville12-27-2022 Progress note Author Sadia Aguilar [facility] February 10, 2022 3:47pm Note Date/Time February 10, 2022 3:47pm [facility] [address] [place] [address] Wound Center Provider Note Signed Patient: Alex Almonte MR#: [id number] : 1945 Acct:[id number] Age/Sex: 76 / M Copies to: DO Sadia Whyte APRN~ HPI Date of Visit Date of Visit: Date of Service: 02/10/2022 Time of Service: 15:44 Narrative HPI: 12/30/21 Alex is a 76 year old male presenting to [facility] wound care for aninitial visit for eval and treatment of a sacral/coccyx area pressure ulcer. He resides at [facility]. There is an ARRESTING GEAR OPERATOR present for the visit. Medicalhoney gel [...] his brief that was cleaned by this global technical writer as well as another nursing staff member, few weeks to follow up Subjective Pain Coccyx: Pain Description: Intermittent Pain Intensity: 0 Wound/Ulcer History When did wound start?: 4 weeks ago- from initial visit here Mode of Arrival/ Lithographic Retoucher Apprentice: Facility vehicle Assistive Device Used Today: Wheelchair and Indra Lives with:: Care/Nursing Facility Appetite Description: Within Normal Limits Who helps w/ dressing change?: Nursing Facility Why Do You Need Help?: Can't Reach Ulcer, Limited mobility and Taxing effort to leave home Smoking Status: Former smoker [facility] Medical History (Updated 01/20/22 @ 14:21 [...] Ulcer Pressure Ulcer/Injury Staging: Unstageable Bed Appearance: Towner and Yellow Percent of Wound Bed Granulated/Red: 90 Percent of Devitalized: 10 Length (cm): 2.5 Width (cm): 2.3 Depth (cm): 2.1 CM Sq: 5.750 Surrounding Tissue Appearance: Towner, Hyperpigmented and Satellite lesions Surrounding Tissue Temp: [...] <Electronically signed by DAVID Aguilar> 02/10/22 1547 [facility] Work Phone: 1(731) 282-471012-22-2022 NoteHNO ID: [id number] Author: Asia Pike MD Service: ? Author Type: Physician Type: Progress Notes Filed: 02/05/2022 9:38 AM Note Text: [facility] Transplant Follow up Portions of this note [...] Indra scale at [facility]: 166.2 lbs per patient. Bed sore on coccyx causing discomfort. Being changed regularly at SNF- reported to be smaller around but still as deep. Patient not very up to date with medications. Patient brought paperwork from [facility] with all medications being received. Patient unsure if they have been drawing labs regularly. Last Tac from 01/19: 12.9 and K 5.9. In need of current labs. Lab orders will be sent with patient and follows as below: Kidney and Pancreas Transplant Standing Lab Orders [id number] [facility] [address] [place], [place] [address] February 05, 2022 Alex Kate Almonte 1945 [id number] STANDARD TESTING: Diagnosis Codes: Z94.0 Kidney Transplant [...] AT YOUR LABORATORY FACILITY AND FAX TO [phone]. PLEASE CALL [phone]. Provider: Dr. Pike Current Outpatient Medications Medication [...] by mouth daily with lunch. Magic Cup [place] with lunch aspirin, enteric coated (ASPIRIN, ENTERIC COATED) 81 mg EC tablet Take 1 tablet by mouth once daily. atorvastatin (LIPITOR) 40 mg tablet 1 tablet by ORAL/FEEDING TUBE route daily at bedtime. (more content not included)...[facility]12-22-2022 History of Present illness Narrative* Asia Pike MD - 02/05/2022 8:20 AM EST Images from the original note were not included. [facility] Transplant Follow up Portions of this note [...] Indra scale at [facility]: 166.2 lbs per patient. Bed sore on coccyx causing discomfort. Being changed regularly at SNF- reported to be smaller around but still as deep. Patient not very up to date with medications. Patient brought paperwork from [facility] with all medications being received. Patient unsure if they have been drawing labs regularly. Last Tac from 01/19: 12.9 and K 5.9. In need of current labs. Lab orders will be sent with patient and follows as below: Kidney and Pancreas Transplant Standing Lab Orders [id number] [place], [place] [address] February 05, 2022 Alex Almonte 1945 [id number] STANDARD TESTING: Diagnosis Codes: Z94.0 Kidney Transplant [...] AT YOUR LABORATORY FACILITY AND FAX TO [phone]. PLEASE CALL [phone]. Provider: Dr. Pike Current Outpatient Medications Medication [...] by mouth daily with lunch. Magic Cup [place] with lunch aspirin, enteric coated (ASPIRIN, ENTERIC [...] complexity. Asia Pike MD documented in this encounterCenterville12-06-2022 Progress note Author Sadia Aguilar [facility] January 20, 2022 2:21pm Note Date/Time January 20, 2022 2 :21pm [facility] [address] [place] [address] Wound Center Provider Note Signed Patient: Alex Almonte MR#: [id number] : 1945 Acct:[id number] Age/Sex: 76 / M Copies to: DO Sadia Whyte APRN~ HPI Date of Visit Date of Visit: Date of Service: 01/20/2022 Time of Service: 14:17 Narrative HPI: 12/30/21 Alex is a 76 year old male presenting to [facility] wound care for aninitial visit for eval and treatment of a sacral/coccyx area pressure ulcer. He resides at [facility]. There is an ARRESTING GEAR OPERATOR present for the visit. Medicalhoney gel [...] from initial visit here Mode of Arrival/ Lithographic Retoucher Apprentice: Facility vehicle Assistive Device Used Today: Wheelchair and Indra Lives with:: Care/Nursing Facility Appetite Description: Within Normal Limits Who helps w/ dressing change?: Nursing Facility Why Do You Need Help?: Can't Reach Ulcer, Limited mobility and Taxing effort to leave home Smoking Status: Former smoker [facility] Medical History (Updated 01/20/22 @ 14:21 [...] Ulcer Pressure Ulcer/Injury Staging: Unstageable Bed Appearance: Towner and Yellow Percent of Wound Bed Granulated/Red: 40 Percent of Devitalized: 60 Length (cm): 5.2 Width (cm): 3.4 Depth (cm): 1.8 CM Sq: 17.680 Surrounding Tissue Appearance: Towner and Hyperpigmented Surrounding Tissue Temp: Warm Drainage [...] <Electronically signed by DAVID Aguilar> 01/20/22 1421 [facility] Work Phone: 1(364) 327-619412-06-2022 Miscellaneous Notes* Telephone Encounter - Van Olivarez APRN.BAIL BONDING AGENT - 01/20/2022 1:12 PM EST Labs noted from yesterday. Pt is currently residing at [facility], I spoke with the Nurse, the results has been addressed by Physician caring for pt. He had been placed on Chlor Con and this has been discontinued and hyperkalemia has been treated. Van Olivarez APRN.DIAMANTE documented in this encounterCenterville11-28-2022 Surgical operation note* Brief Op Note - Misbah Landis PA-C - 01/12/2022 10:41 AM EST BRIEF OPERATIVE / PROCEDURE NOTE LOG ID: [id number] SURGERY/PROCEDURE DATE: 01/12/2022 INCISION/PROCEDURE START TIME: 10:32 AM INCISION CLOSE/PROCEDURE END TIME: 10:35 AM SURGEON(S)/PROCEDURALIST(S) AND CHIEF PSYCHOLOGY(S): Misbah Landis PA-C SURGERY/PROCEDURE(S): Removal tunneled vascular access catheter under local anesthesia ANESTHESIA: Procedural Sedation FINDINGS: Catheter removed intact ESTIMATED BLOOD LOSS: 0 ml SPECIMENS: None COMPLICATIONS: None PRE-OP/PRE-PROCEDURE DIAGNOSIS: Foot Ulcer POST-OP/POST-PROCEDURE DIAGNOSIS: Same as Preop SIGNATURE: Misbah Landis PA-C PATIENT NAME: Alex Almonte DATE: January 12, 2022 TIME: 10:42 AM documented in this encounterCenterville11-22-2022 Nurse Note* Laxmi Archibald RN - 01/06/2022 1:55 PM EST Pre-procedure instructions: Contact[facility] patient's [facility], Munira [phone][facility] andconfirmed appt. for Gerhard removal scheduled on 01/12/22, at [facility]. If instructions are not followed [...] signed. Arrival at 9:30am to desk QB-1 ([facility] [place]) and check in for your procedure. Demurrage Agent/Transportation: How will you be arriving for your procedure? Ambulance service. To be arranged by [facility]. If you develop any of the following symptoms before your procedure, please call [phone]. Chills, joint pain, rash, sore throat, cough, loss of smell, reddened eyes, vomiting, abdominal pains, diarrhea, loss of taste, severe headache, weakness, bruising or bleeding, fever, muscle pain, shortness of breath Recovery expectations: You can expect to be in recovery for 30 minutes following the procedure. Written instructions provided to patient via SPOt If you have any questions please call [phone] documented in this encounterCenterville11-15-2022 Progress note Author Sadia Aguilar [facility] December 30, 2021 1:49pm Note Date/Time December 30, 2021 1:49pm [facility] [address] [place] [address] Wound Center Provider Note Signed Patient: Alex Almonte MR#: [id number] : 1945 Acct:[id number] Age/Sex: 76 / M Copies to: DO Sadia Whyte APRN~ HPI Date of Visit Date of Visit: Date of Service: 12/30/2021 Time of Service: 13:44 Narrative HPI: 12/30/21 Alex is a 76 year old male presenting to [facility] wound care for aninitial visit for eval and treatment of a sacral/coccyx area pressure ulcer. He resides at [facility]. There is an ARRESTING GEAR OPERATOR present for the visit. Medicalhoney gel [...] start?: 4 weeks ago Mode of Arrival/ Lithographic Retoucher Apprentice: Facility vehicle Assistive Device Used Today: Wheelchair and Indra Lives with:: Care/Nursing Facility Appetite Description: Within Normal Limits Who helps w/ dressing change?: Nursing Facility Why Do You Need Help?: Can't Reach Ulcer, Limited mobility and Taxing effort to leave home Smoking Status: Former smoker [facility] Medical History (Updated 12/30/21 @ 13:49 [...] 0.1 CM Sq: 38.500 Surrounding Tissue Appearance: Towner and Hyperpigmented Surrounding Tissue Temp: Warm Drainage [...] <Electronically signed by DAVID Aguilar> 12/30/21 [address] [facility] Work Phone: 1(578) 950-672711-15-2022 History of Present illness Narrative* Paresh Fonseca [...] is currently at [facility] in [facility] Seen on video together with [...] following this at [facility] WBC 6.0, creatinine -- 0.8. [...] by mouth daily with lunch. Magic Cup [place] with lunch aspirin, enteric coated (ASPIRIN, ENTERIC [...] is a 76 year old male from [facility]. Here today for copat follow-up for vancomycin x4 weeks for MRSA bacteremia He was transferred from [facility] TO [facility] on 11/28/2021 for further surgical management of infected right heel He has a past medical history of kidney transplant in 2001, left [facility] from previously infected foot ulcers and multiple foot surgeries. History of PAD CAD status post CABG, diabetes, atrial fibrillatioN He originally presented [facility] for having altered mental status and right [...] post right heel I&D at [facility] on 11/24/2021. 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 4. CKD - s/p gerhard placement 5. immunocompromised Status post right open above the ankle [id number]/17 - Enterobacter and MRSA from cultures Gram-positive [...] will need to coordinate with his SNF [phone] --our ID office will need to arrange for IR gerhard removal. Return to ID as needed 10 Minutes spent via virtual visit. SIGNATURE: Paresh Fonseca MD PATIENT NAME: Alex Almonte DATE: December 30, 2021 TIME: 9:52 AM documented in this encounterCenterville11-01-2022 Miscellaneous Notes* Telephone Encounter - Sulma Pardo - 12/16/2021 3:13 PM EDT Pt facilities and grounds director is requesting orders for Stomp ampushield to be taken off pressure relief because it is causing sores on the thigh. Thanks, Sulma Pardo Quality Control Microbiology Supervisor documented in this encounterCenterville10-31-2022 Miscellaneous Notes* Telephone Encounter - Gwen Alfredo Adm Asst I - 12/15/2021 4:11 PM EDT Rupa LYLES from [facility] [phone] called to report IV Vancomycin was started until today. Patient missed 3 days, should patient makeup missed doses? Please advise. Gwen Alfredo Adm Asst I documented in this encounterCenterville10-21-2022 Instructions* Patient Instructions* Paresh Fonseca MD - [...] serious illness Are taking any medications (prescription, quvq-ujm-aietfgg, vitamins, or herbal products) How will I receive EVUSHELD? EVUSHELD consists of two investigational medicines, tixagevimab and cilgavimab. You will receive 1 dose of EVUSHELD, consisting of 2 separate injections (tixagevimab and cilgavimab). EVUSHELD will be given to you by your healthcare provider as 2 intramuscular injections, given one after the other. Viruses can mold changer time (mutate) and develop into a [...] by certain SARS-CoV-2 variants: Viruses can mold changer time (mutate) and develop into a [...] treatment or prevention of COVID-19 go to https://www.fda.gov/ywqsrwevo-bjhrefnjniaw-orx- response/qod-usodg-ojqyrtvsin-yik-oqbxhw-xmptifikq/geiqexhia-djq-ipdnxprvvbehl for more information. It is your choice [...] not go away. Report side effects to [employer] at www.fda.gov/medwatch or call 3-035-EHF-0866 or call [employer] . Additional Information If you have questions, visit the website or call the telephone number provided below. Website Telephone number http://[employer] How can I learn more about COVID-19? Ask your healthcare provider. Visit https://www.cdc.gov/COVID19 Contact your local or state public health department. What is an Emergency Use Authorization? The [place] FDA has made EVUSHELD (tixagevimab co-packaged with cilgavimab) available under an emergency access mechanism called an Emergency Use Authorization EUA. The EUA is supported by a [place] of Health and Human Service (HHS) declaration [...] monohydrate, polysorbate 80, sucrose, water. Distributed by: [employer] Manufactured for: [employer] [place] [employer] 2021. All rightsreserved. documented in this encounterCenterville10-21-2022 Miscellaneous Notes* Telephone Encounter - Paresh Fonseca MD - 12/05/2021 3:05 PM EDT Evusheld (tixagevimab/cilgavimab) Eligibility and Patient Discussion The patient agrees to receive Evusheld (tixagevimab 300 mg and cilgavimab 300 mg) at [place]. The patient verbalized understanding of repeating a COVID test 72 hours prior to the injections. called up patient in response to her Stiot message today she tested covid negative on a rapid test on Wednesday this week Discussed evushed fact sheet and she agrees to proceed she will retest again today to be scheduled for Friday 12/08 at [facility] Paresh Fonseca MD documented in this encounterCenterville10-03-2022 Instructions* Patient Instructions* No Reeder DO - 11/17/2021 4:26 PM EDT -- continue coumadin -- will get vascular ultrasound for vein and artery of your right leg -- will have you see my interventional cardiology partner regarding your peripheral artery disease and if your artery disease is impairing your wound healing for the leg ulcer documented in this encounterCenterville10-03-2022 History of Present illness Narrative* No Reeder DO - 11/17/2021 3:53 PM EDT Images from the original note were not included. [facility] Department of Cardiovascular Medicine SECTION [...] DVT scan. Leg elevation. No Reeder DO, [facility] Vascular Medicine documented in this encounterCenterville08-16-2022 History of Past illness Narrative* Problem Noted Date Resolved Date Altered tissue perfusion documented as of this encounter (statuses as of 09/30/2021) [place]08-16-2022 History of Past illness Narrative* Problem Noted Date Resolved Date Altered tissue perfusion documented as of this encounter (statuses as of 10/09/2021) [address]16-2022 History of Past illness Narrative* Problem Noted Date Resolved Date Altered tissue perfusion documented as of this encounter (statuses as of 11/18/2021) [address]16-2022 History of Past illness Narrative* Problem Noted Date Resolved Date Altered tissue perfusion documented as of this encounter (statuses as of 12/01/2021) [address]16-2022 History of Past illness Narrative* Problem Noted Date Resolved Date Altered tissue perfusion documented as of this encounter (statuses as of 12/05/2021) [address]16-2022 History of Past illness Narrative* Problem Noted Date Resolved Date Altered tissue perfusion 16/2 022 documented as of this encounter (statuses as of 12/08/2021) [address]16-2022 History of Past illness Narrative* Problem Noted Date Resolved Date Altered tissue perfusion 16/2 022 documented as of this encounter (statuses as of 12/08/2021) [address]16-2022 History of Past illness Narrative* Problem Noted Date Resolved Date Altered tissue perfusion 16/2 022 documented as of this encounter (statuses as of 12/12/2021) [address]16-2022 History of Past illness Narrative* Problem Noted Date Resolved Date Altered tissue perfusion 16/2 022 documented as of this encounter (statuses as of 12/15/2021) [address]16-2022 History of Past illness Narrative* Problem Noted Date Resolved Date Altered tissue perfusion 16/2 022 documented as of this encounter (statuses as of 12/16/2021) [address]16-2022 History of Past illness Narrative* Problem Noted Date Resolved Date Altered tissue perfusion 16/2 022 documented as of this encounter (statuses as of 12/31/2021) [address]16-2022 History of Past illness Narrative* Problem Noted Date Resolved Date Altered tissue perfusion 16/2 022 documented as of this encounter (statuses as of 01/13/2022) [address]16-2022 History of Past illness Narrative* Problem Noted Date Resolved Date Altered tissue perfusion 16/2 022 documented as of this encounter (statuses as of 01/20/2022) [place] [address] History of Past illness Narrative* Problem Noted Date Resolved Date Altered tissue perfusion 16/2 022 documented as of this encounter (statuses as of 02/06/2022) [address]16-2022 History of Past illness Narrative* Problem Noted Date Resolved Date Altered tissue perfusion 16/2 022 documented as of this encounter (statuses as of 02/20/2022) [address]16-2022 History of Past illness Narrative* Problem Noted Date Resolved Date Altered tissue perfusion 16/2 022 documented as of this encounter (statuses as of 02/26/2022) [address]16-2022 History of Past illness Narrative* Problem Noted Date Resolved Date Altered tissue perfusion documented as of this encounter (statuses as of 02/27/2022) [address]16-2022 History of Past illness Narrative* Problem Noted Date Resolved Date Altered tissue perfusion documented as of this encounter (statuses as of 03/21/2022) [address]16-2022 History of Past illness Narrative* Problem Noted Date Resolved Date Altered tissue perfusion documented as of this encounter (statuses as of 03/30/2022) [address]16-2022 History of Past illness Narrative* Problem Noted Date Resolved Date Altered tissue perfusion documented as of this encounter (statuses as of 04/06/2022) [place]08-16-2022 History of Past illness Narrative* Problem Noted Date Resolved Date Altered tissue perfusion documented as of this encounter (statuses as of 05/13/2022) [address]16-2022 History of Past illness Narrative* Problem Noted Date Diagnosed Date Resolved Date Altered tissue perfusion documented as of this encounter (statuses as of 2022) [address]16-2022 History of Past illness Narrative* Problem Noted Date Diagnosed Date Resolved Date Altered tissue perfusion documented as of this encounter (statuses as of 10/29/2022) [place]08-16-2022 Miscellaneous Notes* Telephone Encounter - Katina Duque [...] to pharmacy. Katina Duque documented in this encounterCenterville05-31-2022 Miscellaneous Notes* Telephone Encounter - Van Olivarez APRN.CNP - 07/15/2021 9:50 AM EDT The following approved medication requests have been transmitted electronically. Signed Prescriptions Disp Refills predniSONE (DELTASONE) 5 mg tablet 90 tablet 3 Sig: TAKE 1 TABLET BY MOUTH EVERY DAY RILEY: No Authorizing Provider: VAN OLIVAREZ APRN.CNP * Telephone Encounter - Rosibel Yehelela Daniel - 07/15/2021 9:32 AM EDT Patient phones requesting refills as follows: Pending Prescriptions Disp Refills PREDNISONE 5 MG TABLET 90 tablet 3 Sig: TAKE 1 TABLET BY MOUTH EVERY DAY RILEY: Yes Please review and advise. Rosibel Fariba Adm documented in this encounterCenterville04-21-2022 Miscellaneous Notes* Telephone Encounter - Van Olivarez [...] [facility] Diagnosis Screening for genitourinary condition Screening for other and unspecified genitourinary condition documented in this encounter [facility] note* Diagnosis Acute deep vein thrombosis (DVT) of proximal end of right lower extremity (HCC)- Primary PAD (peripheral artery disease) (HCC) Peripheral vascular disease, unspecified Nonhealing ulcer of heel (HCC) Anticoagulation management encounter Encounter for therapeutic drug monitoring documented in this encounter [facility] note* Diagnosis Encounter for prophylactic measures, unspecified- Primary documented in this encounter [facility] note* Diagnosis Kidney replaced by transplant- Primary documented in this encounter [facility] note* Diagnosis MRSA bacteremia- Primary Bacteremia Diabetic foot ulcer with osteomyelitis (HCC) Type II or unspecified type diabetes mellitus with other specified manifestations, not stated as uncontrolled ILIANA (acute kidney injury) ([facility]) Acute kidney failure, unspecified documented in this encounter [facility] note* Diagnosis Kidney replaced by transplant- Primary 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 nursing home current use of immunosuppressive drug documented in this encounter [facility] note* Diagnosis Hx of BKA, right (HCC)- Primary PAD (peripheral artery disease) ([facility]) Peripheral vascular disease, unspecified Mixed hyperlipidemia [...] HOSPITAL) Atrial fibrillation documented in this encounter [facility] note* Diagnosis Screening for genitourinary condition Screening for other and unspecified genitourinary condition documented in this encounter [facility] note* Diagnosis Onset Date Resolution Status At high risk for skin breakdown chronic Diabetes chronic Fecal incontinence chronic Limited mobility chronic Poor appetite chronic Pressure ulcer of sacral region, unstageable chronic Candidiasis resolved [facility] Work Phone: Evaluation noteNo [facility] [employer] Other Evaluation note* Diagnosis Kidney replaced by transplant- Primary documented in this encounter [facility] note* Diagnosis 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 [address] [place] [address] Wound Center Provider Note Signed Patient: Alex Almonte MR#: [id number] : 1945 Acct:[id number] Age/Sex: 76 / M Copies to: DO Sadia Whyte, OPTICAL LATHE OPERATOR~ HPI Date of Visit Date of Visit: Date of Service: 07/20/2022 Time of Service: 13:46 Narrative HPI: 12/30/21 Alex is a 76 year old male presenting to [facility] wound care for aninitial visit for eval and treatment of a sacral/coccyx area pressure ulcer. He resides at [facility]. There is an ARRESTING GEAR OPERATOR present for the visit. Medicalhoney gel [...] his brief that was cleaned by this global technical writer as well as another nursing staff [...] from initial visit here Mode of Arrival/ Lithographic Retoucher Apprentice: Facility vehicle Assistive Device Used Today: Wheelchair and Indra Lives with:: Care/Nursing Facility Appetite Description: Within Normal Limits Who helps w/ dressing change?: Nursing Facility Why Do You Need Help?: Can't Reach Ulcer, Limited mobility and Taxing effort to leave home Smoking Status: Former smoker [facility] Medical History (Updated 03/03/22 @ 14:41 [...] <Electronically signed by DAVID Aguilar> 07/20/22 [address] [facility] Work Phone: Reason for referral (narrative)* Outpatient Procedure (Routine) - Authorized Specialty Diagnoses / Procedures Referred By Felicia carreno [facility] Diagnoses PAD (peripheral artery disease) (HCC) Nonhealing ulcer of heel (HCC) Procedures US LEG ARTERIAL PERIPH UNL VAS LAB DUP-SCAN LXTR ART/ARTL BPGS UNI/LMTD STUDY No Reeder DO [address] [place] [id number] [facility] [address] [address] Referral ID Status Reason Start Date Expiration Date Visits Requested Visits Authorized [id number] Authorized Auto-Generat ed Referral 11/17/2021 11/17/2022 1 1 * Outpatient Procedure (Routine) - Authorized Specialty Diagnoses / Procedures Referred By Felicia carreno Referred To Contact [facility] Diagnoses Acute deep vein thrombosis (DVT) of proximal end of right lower extremity (HCC) Procedures US LEG VEIN DVT UNL VAS LAB DUP-SCAN XTR VEINS UNILATERAL/LIMITED STUDY No Reeder DO [address] [place] [address] [facility] [place] [place] [address] Referral ID Status Reason Start Date Expiration Date Visits Requested Visits Authorized [id number] Authorized Auto-Generat ed Referral 11/17/2021 11/17/2022 1 1 * Consult, Test, Treat (Routine) - Authorized Specialty Diagnoses / Procedures Referred By Felicia carreno Referred To Contact Cardiology Diagnoses PAD (peripheral artery disease) (HCC) Nonhealing ulcer of heel (HCC) Procedures CONSULT TO CARDIOLOGY OFFICE/OUTPATIENT [facility] 60-74 MINUTES Savanah Marcelo MD [address] [place] [address] Referral ID Status Reason Start Date Expiration Date Visits Requested Visits Authorized [id number] Authorized PCP Requested Referral 11/17/2021 11/17/2022 1 1 [place] Summary Purpose Family History No Family History Records Found Relationship Condition Age at Onset Recorded Date/T kartik father Aneurysm Unknown father Parkinson's disease Unknown Advance Directives No Advanced Directives Records FoundDocuments on File Type Date Recorded Patient Box Car Bracer Expl anation Advance Directive(s) Latest Code Status [...] Maker Relationship: M ajority of Adult Siblings (floor representative) DNR-CCA 09/26/2021 11:56 AM 10/01/2021 2:18 [...] Decision Maker Relationship: Majority of Adult Siblings (floor representative) Code Status History Code Status Date [...] PRN, Starting on 01/12/22 at 1032, Until Tu01/13/22 at 0303, Intraprocedure Given 01/12/2022 10:32 AM [...] and content) DATE CREATED AUTHOR 02/20/2021 [facility] DATE CREATED AUTHOR AUTHOR'S ORGANIZ ATION 07/25/2022 [facility] DATE CREATED AUTHOR AUTHOR'S ORGANIZ ATION 08/16/2022 [facility] DATE CREATED AUTHOR AUTHOR'S ORGANIZ ATION 01/14/2023 [facility] DATE CREATED AUTHOR AUTHOR'S ORGANIZ ATION 05/25/2023 [facility] DATE CREATED AUTHOR AUTHOR'S ORGANIZ ATION 06/19/2023 [facility] Source Comments (unrecognize d section and content) In the event this informatio n is protected by the Federal Confidentiality of Alcohol and Drug Abuse Patient Records regulations: The Federal rules restrict any use of the information to criminally investigate or prosecute any alcohol or drug abuse patient.[place]In the event this information is protected by the Federal Confidentiality of Alcohol and Drug Abuse Patient Records regulations: The Federal rules restrict any use of the information to criminally investigate or prosecute any alcohol or drug abuse patient.[place]In the event this information is protected by the Federal Confidentiality of Alcohol and Drug Abuse Patient Records regulations: The Federal rules restrict any use of the information to criminally investigate or prosecute any alcohol or drug abuse patient.[place]In the event this information is protected by the Federal Confidentiality of Alcohol and Drug Abuse Patient Records regulations: The Federal rules restrict any use of the information to criminally investigate or prosecute any alcohol or drug abuse patient.[place]In the event this information is protected by the Federal Confidentiality of Alcohol and Drug Abuse Patient Records regulations: The Federal rules restrict any use of the information to criminally investigate or prosecute any alcohol or drug abuse patient.[place]In the event this information is protected by the Federal Confidentiality of Alcohol and Drug Abuse Patient Records regulations: The Federal rules restrict any use of the information to criminally investigate or prosecute any alcohol or drug abuse patient.[place]In the event this information is protected by the Federal Confidentiality of Alcohol and Drug Abuse Patient Records regulations: The Federal rules restrict any use of the information to criminally investigate or prosecute any alcohol or drug abuse patient.[place]In the event this information is protected by the Federal Confidentiality of Alcohol and Drug Abuse Patient Records regulations: The Federal rules restrict any use of the information to criminally investigate or prosecute any alcohol or drug abuse patient.[place]In the event this information is protected by the Federal Confidentiality of Alcohol and Drug Abuse Patient Records regulations: The Federal rules restrict any use of the information to criminally investigate or prosecute any alcohol or drug abuse patient.[place]In the event this information is protected by the Federal Confidentiality of Alcohol and Drug Abuse Patient Records regulations: The Federal rules restrict any use of the information to criminally investigate or prosecute any alcohol or drug abuse patient.[place]In the event this information is protected by the Federal Confidentiality of Alcohol and Drug Abuse Patient Records regulations: The Federal rules restrict any use of the information to criminally investigate or prosecute any alcohol or drug abuse patient.[place]In the event this information is protected by the Federal Confidentiality of Alcohol and Drug Abuse Patient Records regulations: The Federal rules restrict any use of the information to criminally investigate or prosecute any alcohol or drug abuse patient.[place]In the event this information is protected by the Federal Confidentiality of Alcohol and Drug Abuse Patient Records regulations: The Federal rules restrict any use of the information to criminally investigate or prosecute any alcohol or drug abuse patient.[place]In the event this information is protected by the Federal Confidentiality of Alcohol and Drug Abuse Patient Records regulations: The Federal rules restrict any use of the information to criminally investigate or prosecute any alcohol or drug abuse patient.[place]In the event this information is protected by the Federal Confidentiality of Alcohol and Drug Abuse Patient Records regulations: The Federal rules restrict any use of the information to criminally investigate or prosecute any alcohol or drug abuse patient.[place]ervilleIn the event this information is protected by the Federal Confidentiality of Alcohol and Drug Abuse Patient Records regulations: The Federal rules restrict any use of the information to criminally investigate or prosecute any alcohol or drug abuse patient.[place]ervilleIn the event this information is protected by the Federal Confidentiality of Alcohol and Drug Abuse Patient Records regulations: The Federal rules restrict any use of the information to criminally investigate or prosecute any alcohol or drug abuse patient.[place]ervilleIn the event this information is protected by the Federal Confidentiality of Alcohol and Drug Abuse Patient Records regulations: The Federal rules restrict any use of the information to criminally investigate or prosecute any alcohol or drug abuse patient.[place]ervilleIn the event this information is protected by the Federal Confidentiality of Alcohol and Drug Abuse Patient Records regulations: The Federal rules restrict any use of the information to criminally investigate or prosecute any alcohol or drug abuse patient.[place]ervilleIn the event this information is protected by the Federal Confidentiality of Alcohol and Drug Abuse Patient Records regulations: The Federal rules restrict any use of the information to criminally investigate or prosecute any alcohol or drug abuse patient.[place]ervilleIn the event this information is protected by the Federal Confidentiality of Alcohol and Drug Abuse Patient Records regulations: The Federal rules restrict any use of the information to criminally investigate or prosecute any alcohol or drug abuse patient.[place]In the event this information is protected by the Federal Confidentiality of Alcohol and Drug Abuse Patient Records regulations: The Federal rules restrict any use of the information to criminally investigate or prosecute any alcohol or drug abuse patient.[place]In the event this information is protected by the Federal Confidentiality of Alcohol and Drug Abuse Patient Records regulations: The Federal rules restrict any use of the information to criminally investigate or prosecute any alcohol or drug abuse patient.[place]ervilleIn the event this information is protected by the Federal Confidentiality of Alcohol and Drug Abuse Patient Records regulations: The Federal rules restrict any use of the information to criminally investigate or prosecute any alcohol or drug abuse patient.[place]In the event this information is protected by the Federal Confidentiality of Alcohol and Drug Abuse Patient Records regulations: The Federal rules restrict any use of the information to criminally investigate or prosecute any alcohol or drug abuse patient.[place]ervilleIn the event this information is protected by the Federal Confidentiality of Alcohol and Drug Abuse Patient Records regulations: The Federal rules restrict any use of the information to criminally investigate or prosecute any alcohol or drug abuse patient.[place] Reason for Visit (unrecogniz ed section and [...] Care Teams (unrecognized sec tion and content) Manager Research Relationship Specialty Start Date End Date Devon Moreira, DO [address] [place] [id number] PCP - General 05/27/00 Manager Research Relationship Specialty Start Date End Date Devon Moreira, DO [address] [facility] [place] [address] PCP - General 05/27/00 Manager Research Relationship Specialty Start Date End Date Devon Moreira, DO [address] [facility] [place] [address] PCP - General 05/27/00 Manager Research Relationship Specialty Start Date End Date Devon Moreira, DO [address] [place] [id number] PCP - General 05/27/00 Manager Research Relationship Specialty Start Date End Date Devon Moreira, DO [address] [place] [address] PCP - General 05/27/00 Manager Research Relationship Specialty Start Date End Date Devon Moreira, DO [address] [place] [address] PCP - General 05/27/00 Manager Research Relationship Specialty Start Date End Date Devon Moreira, DO [address] [place] [address] PCP - General 05/27/00 Manager Research Relationship Specialty Start Date End Date Devon Moreira, DO [address] [place] [address] PCP - General 05/27/00 Manager Research Relationship Specialty Start Date End Date Devon Moreira, DO [address] [place] [address] PCP - General 05/27/00 Manager Research Relationship Specialty Start Date End Date Devon Moreira, DO [address] [place] [address] PCP - General 05/27/00 Manager Research Relationship Specialty Start Date End Date Devon Moreira, DO [address] [place] [address] PCP - General 05/27/00 Manager Research Relationship Specialty Start Date End Date Devon Moreira, DO [address] [place] [address] PCP - General 05/27/00 Manager Research Relationship Specialty Start Date End Date Devon Moreira, DO [address] [place] [address] PCP - General 05/27/00 Manager Research Relationship Specialty Start Date End Date Devon Moreira, DO [address] [facility] [place] [address] PCP - General 05/27/00 Manager Research Relationship Specialty Start Date End Date Devon Moreira, DO [address] [facility] [place] [address] PCP - General 05/27/00 Manager Research Relationship Specialty Start Date End Date Devon Moreira, DO [address] [facility] [place] [address] PCP - General 05/27/00 Manager Research Relationship Specialty Start Date End Date Devon Moreira, DO [address] [facility] [place] [address] PCP - General 05/27/00 Manager Research Relationship Specialty Start Date End Date Devon Moreira, DO [address] [facility] [place] [address] PCP - General 05/27/00 Manager Research Relationship Specialty Start Date End Date Devon Moreira, DO [address] [facility] [place] [address] PCP - General 05/27/00 Team Status: Active Member Role Status Dates Devon Moreira DO Primary Care Provider Active Team Status: Inactive Member Role Status Dates Devon Moreira DO Primary Care Provider Active Sadia Aguilar APRN Attending Provider Active Manager Research Relationship Specialty Start Date End Date Devon Moreira, DO [address] [facility] [place] [address] PCP - General 05/27/00 Manager Research Relationship Specialty Start Date End Date Devon Moreira, DO [address] [facility] [place] [address] PCP - General 05/27/00 Manager Research Relationship Specialty Start Date End Date Ni Cabrera DO [address] [place] [address] PCP - ACO Reach 07/09/22 Devon Moreira MD [address] [facility] [place] [id number] PCP - General Internal Medicine 07/14/22 PRN Active and Recently Administ ered Medications (unrecognized section and content) Medication Order 01/10/2022 01/11/2022 01/12/2022 lidocaine (PF) 10 mg/mL (1 %) injection (XYLOCAINE) SUBCUTANEOUS, X (OR/PROCEDURE) PRN, Starting on 01/12/22 at 1032, Until Tu01/13/22 at 0303, Intraprocedure 1032 (Given - Provid er: Vani Hdz APRN.BAIL BONDING AGENT) Goals (unrecognized section and content) Goals may [...] BE BASED ON THE PRIMARY CLINICAL RECORDS. [employer] provides no warranty or guarantee of the accuracy or completeness of information in this document.
[2023-06-23 08:17] LABS: Basophils Absolute Auto 0.1 10^3/uL (0.0-0.1); Basophils Percent Auto 0.8 % (0.2-2.0); Eosinophils Absolute Auto 0.3 10^3/uL (0.0-0.7); Eosinophils Percent Auto 4.7 % (0.9-7.0); Hematocrit 29.4 % (42.0-54.0); Hemoglobin 9.4 g/dL (14.0-18.0); Immature Granulocytes Abs Auto 0.02 10^3/uL (0.00-0.03); Immature Granulocytes Pct Auto 0.3 % (0.0-0.5); Lymphocytes Absolute Auto 2.6 10^3/uL (1.2-3.8); Lymphocytes Percent Auto 36.2 % (20.5-60.0); Mean Corpuscular Hemoglobin 25.6 pg (25.9-34.0); Mean Corpuscular Volume 80.1 fL (80.0-94.0); Mean Platelet Volume 10.7 fL (9.5-13.5); Monocytes Absolute Auto 0.8 10^3/uL (0.3-0.8); Neutrophils Absolute Auto 3.4 10^3/uL (1.4-6.5); Platelet Count 243 10^3/uL (150-450); Red Blood Count 3.67 10^6/uL (4.70-6.10); Red Cell Distribution Width 15.6 % (11.0-15.0); White Blood Count 7.3 10^3/uL (4.0-11.0)
[2023-06-23 08:39] LABS: INR 2.34; Prothrombin Time 22.8 sec (9.0-11.6)
[2023-06-23 08:50] LABS: Alanine Aminotransferase 12 U/L (16-63); Albumin Globulin Ratio 0.8; Albumin Level 2.7 g/dL (3.4-5.0); Alkaline Phosphatase 84 U/L (46-116); Anion Gap 11.7; Aspartate Amino Transferase 16 U/L (15-37); Bilirubin Total 0.7 mg/dL (0.2-1.0); Calcium 8.7 mg/dL (8.5-10.1); Carbon Dioxide 27.4 mmol/L (21.0-32.0); Chloride 104 mmol/L (98-107); Estimated GFR (African America 52 (>=60); Estimated GFR (Non-African Ame 43 (>=60); Globulin 3.3 g/dL; Glucose 200 mg/dL (74-106); Potassium 4.1 mmol/L (3.5-5.1); Sodium 139 mmol/L (136-145)
[2023-06-26 00:07] LABS: Tacrolimus (FK506), Blood 7.9 ng/mL (2.0-20.0)
== END 2023-06-23 02:05 | disposition home or self-care (01) ==
LOC: LAB 02:04
PROVIDERS: PCP Internal Medicine; Visit Provider Internal Medicine
DX: N18.9 Chronic kidney disease, unspecified (principal)
CPT/HCPCS: 36415; 80053; 80197; 85025; 85610

== ENCOUNTER 2023-06-30 01:54 | Outpatient (REF) | payer MEDICARE, OTHER, SELFPAY ==
--- OUTSIDE RECORDS SUMMARY | 2023-06-30 02:02 | XMS_ITS | CCD ---
Author Organization [facility] Care Team Providers Care Medical Office Specialist Name Role Phone PROVIDER, UNKNOWN Attending [...] DR TAM Admitting Unavailable BALL, DR ATM Attending Unavailable BALL, DR TAM Consulting Unavailable [...] TAM Primary Care Unavailable BALL, DR TMA Attending Unavailable BALL, DR TAM Consulting Unavailable [...] Unavailable DO Devon Moreira Primary Care Provider [phone] DAVID Aguilar Attending Provider Sadia Aguilar Attending [...] [PYRIDOSTIGMINE BROMIDE] Drug Allergy 2 GI Upset [facility] Work Phone: (1 source) Pyridostigmine Drug Allergy [...] Indications: Type 1 diabetes mellitus with nephropathy ([facility]) 3 units breakfast, 5 units lunch, [...] 10 units and notify provider [facility] [place] [place] [phone] MG (6 sources) take 155-852 tablets by mouth twice daily [facility] [place] [place] 155-852-130 MG 1 tablet Orally twice daily Active take 155-852 tablets by mouth four times daily take 155-852 tablets by mouth four times daily [facility] [place] [place] 155-852-130 MG 1 tablet Orally Four times [...] needed. docusate sodium 50 mg / sennosides, jail 8.6 mg oral tablet (20 sources) Start: [...] by mouth daily with lunch. Magic Cup Leonard with lunch 7110 mL 0 12/11/2021 Active Comment on above: Take 237 mL by mouth daily with lunch. Magic Cup Leonard with lunch polyethylene glycol 3350 55192 mg powder for oral solution (20 sources) [...] Coronary arteriosclerosis; Translations: [Atherosclerotic heart disease of [place] coronary artery without angina pectoris] Onset: 7 [...] current use of immunosuppressive drug; Translations: [Other halfway (current) drug therapy] Episodic Other aftercare (13 sources) Long-term current use of insulin; Translations: [termination clerk (current) use of insulin] Episodic Other aftercare (10 sources) termination clerk (current) use of insulin; Translations: [CUSTODIAL CURRENT USE OF INSULIN] Onset: 2 Episodic Other aftercare (5 sources) senior living (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 of anticoagulants; Translations: [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] Onset: 3 Episodic [...] 07-30-2006 Episodic Other aftercare (2 sources) 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; Translations: [OTH CUSTODIAL CURRENT DRUG THERAPY] Onset: 02-05-2022 Episodic Other aftercare (4 sources) Encounter for orthopedic aftercare following surgical amputation; Translations: [ENC ORTHOPED AFTERCARE FLW SURG AMP] Onset: 02-05-2022 Episodic Other aftercare (4 sources) senior living (current) use of antibiotics; Translations: [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 ANTIBIOTICS] Onset: 12-20-2021 Episodic Other aftercare (1 source) termination clerk (current) use of aspirin; Translations: [CUSTODIAL CURRENT USE OF ASPIRIN] Onset: 01-19-2022 Episodic [...] Range Facility Office Visiton 05-19-2023 Follow-up visit [id number] Alex Almonte 1945 M Date Provider Department Center 05/19/2023 ACITY PALACIOS CARD [facility] Family History Problem Relation Age of Onset Cancer Mother Aneurysm Father Cancer Father Parkinsonism Father Family Status - Relation Status Age at Mother Father Level of Service:17691 [place] OFFICE/OUTPATIENT ESTABLISHED LOW MDM 20 MIN Reason for Visit and Comments: Follow-up [395306] - 6 month follow up Normal [facility] HbA1c (Bld) [Mass fraction]o n 03-18-2023 Interpretation and review of laboratory results Normal [facility] Otonomy POCT glycosylated hemoglobin (Hb A1C) docked deviceon 03-18-2023 HbA1c (Bld) [Mass fraction] 7.8 % [facility] CNPRosalie 12-25-2022 CNPN Telephone (TXCTGL) ALEX ALMONTE ([id number]) 1945 M Date Time Provider Department 12/25/22 KIDNEY TXP COORDINATORS [facility] During your visit today, we recorded the following information about you: Duane Ryan 12/25/2022 10:41 AM Signed Labs 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 Administrative Media Buyer Allergies As of Date: 12/25/2022 Noted Allergy [...] by mouth daily with lunch. 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 Magic Cup Leonard with lunch aspirin, enteric coated (ASPIRIN, ENTERIC [...] in am? thanks! RF Pts RN at [facility] reports pts sister picks up Rx [...] included)... Normal [facility] Office Visiton 09-09-2022 Follow-up visit [id number] Alex Almonte Kate 1945 M Date Provider Department Center 09/09/2022 1596-SARTHAK PARNELL CARD [facility] Family History Problem Relation Age of Onset Cancer Mother Aneurysm Father Cancer Father Parkinsonism Father Family Status - Relation Status Age at Mother Father Level of Service:93233 [place] OFFICE/OUTPATIENT ESTABLISHED MOD MDM 30-39 MIN Normal [facility] Glucose Poct Glucometerson 0 07-20-2022 Commemt1 Glu2: Cleaned Meter Normal [facility] Comment on above: Result Comment: PERF ORMED BY: [facility] [address] [place] [address] PATHOLOGIST VIDEO ENGINEER JOSE F ELLIOTT M.D. Performed By: #### G MADY #### Point of Care testing , Glucose [Mass/Vol] 176 mg/dL Normal [facility] Comment on above: Result Comment: [facility] Glucose Reference Range is dependent on time and content of last meal. Glucose of more than 200 mg/dL in a nonstressed, ambulatory subject supports the diagnosis of Diabetes Mellitus. Performed By: #### G LULS #### Point of Care testing , FK506 (TACROLIMUS) WHOLE BLO ODon 07-12-2022 Tacrolimus (FK506), Blood 10.9 ng/mL Normal 2.0-20.0 [facility] Comment on above: Result Comment: Trou gh (immediately following transplant) 15.0 . Trough (steady state, 2 weeks or more after transplant): 3.0 - 8.0 . Performed by LC-MS/MS technology. Performed By: #### F K506T ####[facility] P[address] [place], [place] [address]Dr. Farhat Leal CBC AUTO DIFFon 07-10-2022 BASO # 0.0 103/ul Normal 0.0-0.1 [facility] Comment on above: Performed By: #### C BC ####[facility] Eilkcs[address]zs[address] [place], [place] [address]Dr. Farhat Leal Basophils/100 WBC (Bld) 0.5 % Normal 0.2-2.0 [facility] Comment on above: Performed By: #### C BC ####[facility] Jqqhvxeetz[address] [place], [place] [address]Dr. Farhat Leal EO # 0.3 103/ul Normal 0.0-0.7 [facility] Comment on above: Performed By: #### C BC ####[facility] Bslwkorynj[address] [place], [place] [address]Dr. Farhat Leal Eosinophils/100 WBC (Bld) 4.9 % Normal 0.9-7.0 [facility] Comment on above: Performed By: #### C BC ####[facility] Eyufixbrpt[address] [place], [place] [address]Dr. Farhat Leal Erythrocyte distribution width (RBC) [Ratio] 13.8 % Normal 11.0-15.0 [facility] Comment on above: Performed By: #### C BC ####[facility] [address] [place] [address]Dr. Farhat Leal Hematocrit (Bld) [Volume fraction] 36.6 % Critically low 42.0-54.0 [facility] Comment on above: Performed By: #### C BC ####[facility] Ewciudyfiz[address] [place], [place] [address]Dr. Madelynlorri Leal Hemoglobin (Bld) [Mass/Vol] 12.2 g/dL Critically low 14.0-18.0 [facility] Comment on above: Performed By: #### C BC ####[facility] Ulutodirni[address] [place], [place] [address]Dr. Farhat Leal IG # 0.01 10e3/ul Normal 0.00-0.03 [facility] Comment on above: Performed By: #### C BC ####[facility] Ofjvtjqmlf[address] [place], [place] [address]Dr. Madelynlorri Leal IG % 0.2 % Normal 0.0-0.5 [facility] Comment on above: Performed By: #### C BC ####[facility] Gviwskaoae[address] [place], [place] [address]DrSkylar Joshilorri Leal LYMPH # 2.2 103/ul Normal 1.2-3.8 [facility] Comment on above: Performed By: #### C BC ####[facility] Qvvtpkmbfx[address] [place], [place] [address]DrSkylar Madelynlorri Leal Lymphocytes/100 WBC (Bld) 33.9 % Normal 20.5-60.0 [facility] Comment on above: Performed By: #### C BC ####[facility] Rmespeuzss[address] [place], [place] [address]DrSkylar Leal MANUAL DIFF REQ NO Normal [facility] Comment on above: Performed By: #### C BC ####[facility] Whguqsdmwb97[address] [place], [place] [address]Dr. Farhat Leal MCH (RBC) [Entitic mass] 31.0 pg Normal 25.9-34.0 [facility] Comment on above: Performed By: #### C BC ####[facility] I[address] [place] [address]Dr. Farhat Leal MCHC (RBC) [Mass/Vol] 33.3 g/dL Normal 29.9-35.2 [facility] Comment on above: Performed By: #### C BC ####[facility] Nokmhgehfa[address] [place], [place] [address]DrSkylar Leal MCV (RBC) [Entitic vol] 93.1 fL Normal 80.0-94.0 [facility] Comment on above: Performed By: #### C BC ####[facility] Wjcprtxyeo[address] [place], [place] [address]DrSkylar Leal MONO # 0.7 103/ul Normal 0.3-0.8 [facility] Comment on above: Performed By: #### C BC ####[facility] Gdblghxnsj[address] [place], [place] [address]Dr. Farhat Leal Monocytes/100 WBC (Bld) 10.8 % Normal 1.7-12.0 [facility] Comment on above: Performed By: #### C BC ####[facility] G[address]qirflam[address] [place], [place] [address]DrSkylar Leal NEUT # 3.2 103/ul Normal 1.4-6.5 [facility] Comment on above: Performed By: #### C BC ####[facility] R[address]fikshls[address] [place], [place] [address]DrSkylar Leal Neutrophils/100 WBC (Bld) 49.7 % Normal 43.0-75.0 [facility] Comment on above: Performed By: #### C BC ####[facility] Awhluxbmgk[address] [place], [place] [address]DrSkylar Leal Platelet mean volume (Bld) [Entitic vol] 10.9 fL Normal 9.5-13.5 [facility] Comment on above: Performed By: #### C BC ####[facility] Rpipsstnuv[address] [place], [place] [address]Dr. Farhat Leal PLT 195 103/ul Normal 150-450 [facility] Comment on above: Performed By: #### C BC ####[facility] Ilxpksvyzj[address] [place] [address]Dr. Farhat Leal RBC 3.93 106/ul Critically low 4.70-6.10 [facility] Comment on above: Performed By: #### C BC ####[facility] Xfetmdhxxz[address] [place] [address]Dr. Farhat Leal WBC 6.4 103/ul Normal 4.0-11.0 [facility] Comment on above: Performed By: #### C BC ####[facility] [address]cxa[address] [place] [address]Dr. Farhat Leal MAGNESIUMon 07-10-2022 Magnesium [Mass/Vol] 1.9 mg/dL Normal 1.8-2.4 [facility] Comment on above: Performed By: #### HENRI Winters ####[facility] Lfpkcnfqyd[address] [place], [place] [address]Dr. Farhat Leal PHOSPHORUSon 07-10-2022 Phosphate [Mass/Vol] 4.7 mg/dL Normal 2.6-4.7 [facility] Comment on above: Performed By: #### HENRI Winters ####[facility] Voygpiiptw[address] [place], [place] [address]Dr. Farhat Leal PROF 14(COMP METB)on 023 Albumin [Mass/Vol] 2.7 g/dL Critically low 3.4-5.0 [facility] Comment on above: Performed By: #### C MP ####[facility] Impqsuzohd[address] [place] [address]Dr. Farhat Leal Albumin/Globulin [Mass ratio] 0.8 {ratio} Normal [facility] Comment on above: Performed By: #### C MP ####[facility] [address]rwmyv[address] [place] [address]Dr. Farhat Leal ALP [Catalytic activity/Vol] 59 U/L Normal 46-116 [facility] Comment on above: Performed By: #### C MP ####[facility] [address]ke[address] [place] [phone]. Farhat Leal ALT [Catalytic activity/Vol] 16 U/L Normal 16-63 [facility] Comment on above: Performed By: #### C MP ####[facility] Xxqddasjyu5[address] [place] [phone]. Farhat Leal Anion gap [Moles/Vol] 12.3 mmol/L Normal [facility] Comment on above: Performed By: #### C MP ####[facility] [address]ysrouj[address] [place] [phone]. Farhat Leal AST [Catalytic activity/Vol] 17 U/L Normal 15-37 [facility] Comment on above: Performed By: #### C MP ####[facility] Pgbtivghtp[address] [place] [address]Dr. Farhat Leal Bilirubin [Mass/Vol] 0.5 mg/dL Normal 0.2-1.0 [facility] Comment on above: Performed By: #### C MP ####[facility] P[address]unihojh[address] [place] [phone]. Farhat Leal Calcium [Mass/Vol] 8.5 mg/dL Normal 8.5-10.[address] [facility] Comment on above: Performed By: #### C MP ####[facility] [address]av[address] [place] [phone]. Farhat Leal Chloride [Moles/Vol] 104 mmol/L Normal 98-107 [facility] Comment on above: Performed By: #### C MP ####[facility] Hmbieuhwks8[address] [place] [phone]. Farhat Leal CO2 [Moles/Vol] 27.6 mmol/L Normal 21.0-32.0 [facility] Comment on above: Performed By: #### C MP ####[facility] Ruiwojahxu[address] [place] [phone]. Farhat Leal Creatinine [Mass/Vol] 1.79 mg/dL Critically high 0.70-1.30 [facility] Comment on above: Performed By: #### C MP ####[facility] [address]wjtlgbzc49[address] [place] [phone]. Farhat Leal EGFR-AF CYMRO 45 mL/min/1.73m2 Critically low >=60 [facility] Comment on above: Performed By: #### C MP ####[facility] Qzonpevgxp[address] [place] [phone]. Farhat Leal EGFR-NON AF CYMRO 37 mL/min/1.73m2 Critically low >=60 [facility] Comment on above: Performed By: #### C MP ####[facility] Zjwbwfpvoy6[address] [place] [phone]. Farhat Leal Globulin (S) [Mass/Vol] 3.2 g/dL Normal [facility] Comment on above: Performed By: #### C MP ####[facility] Hzspfcezbo5299 [place] [phone]. Farhat Leal Glucose [Mass/Vol] 203 mg/dL Critically high 74-106 [facility] Comment on above: Performed By: #### C MP ####[facility] Nsbeioloyx0807 [place] [phone]. Farhat Leal Potassium [Moles/Vol] 3.9 mmol/L Normal 3.5-5.1 [facility] Comment on above: Performed By: #### C MP ####[facility] Ctooupnajs9[address] [place] [phone]. Farhat Leal Protein [Mass/Vol] 5.9 g/dL Critically low 6.4-8.2 [facility] Comment on above: Performed By: #### C MP ####[facility] Zsfvntvdlo37[address] [place] [phone]. Farhat Leal Sodium [Moles/Vol] 140 mmol/L Normal 136-[address] [facility] Comment on above: Performed By: #### C MP ####[facility] Jybvlctmyc6939 [place] [phone]. Farhat Leal Urea nitrogen [Mass/Vol] 61.0 mg/dL Critically high 7.0-18.0 [facility] Comment on above: Performed By: #### C MP ####[facility] Pocxplstrv36[address] [place] [address]DrSkylar Leal Urea nitrogen/Creatinine [Mass ratio] 34.1 mg/mg Normal [facility] Comment on above: Performed By: #### C MP ####[facility] Ueshvaxfos[address] [place], [place] [address]DrSkylar Leal PROTIMEon 07-10-2022 INR Coag (PPP) [Relative time] 2.95 {INR} Normal [facility] Comment on above: Performed By: #### P T ####[facility] Dttfxblndv[address] [place], [place] [address]DrSkylar Leal INR GUIDELINES SEE BELOW Normal [facility] Comment on above: Result Comment: MALINA RED INR: 2.0 - 3.0 CONDITIONS NOT LISTED BELOW 2.5 - 3.5 FOR PROSTHETIC HEART VALVE REPLACEMENT 2.5 - 3.5 RECURRENT THROMBOSIS Performed By: #### P T ####[facility] Qstkmdmvlm[address] [place], [place] [address]DrSklyar Leal PT Coag (PPP) [Time] 29.4 s Critically high 9.0-11.6 [facility] Comment on above: Performed By: #### P T ####[facility] Fygyeiqeii[address] [place], [place] [address]DrSkylar Leal FK506 (TACROLIMUS) WHOLE BLO ODon 07-07-2022 Tacrolimus (FK506), Blood 8.3 ng/mL Normal 2.0-20.0 [facility] Comment on above: Result Comment: Trou gh (immediately following transplant) 15.0 . Trough (steady state, 2 weeks or more after transplant): 3.0 - 8.0 . Performed by LC-MS/MS technology. Performed By: #### F K506T ####[facility] Dbyunoyafy[address] [place], [place] [address]DrSkylar eLal CBC AUTO DIFFon 07-03-2022 BASO # 0.0 103/ul Normal 0.0-0.1 [facility] Comment on above: Performed By: #### C BC ####[facility] X[address]of[address] [place], [place] [address]DrSklyar Leal Basophils/100 WBC (Bld) 0.6 % Normal 0.2-2.0 [facility] Comment on above: Performed By: #### C BC ####[facility] Ijplogvkmy[address] [place] [phone]. Farhat Leal EO # 0.3 103/ul Normal 0.0-0.7 [facility] Comment on above: Performed By: #### C BC ####[facility] Xlbjwhxosm[address] [place], [place] [address]Dr. Farhat Leal Eosinophils/100 WBC (Bld) 4.1 % Normal 0.9-7.0 [facility] Comment on above: Performed By: #### C BC ####[facility] Nssoulvzer[address] [place], [place] [address]Dr. Farhat Leal Erythrocyte distribution width (RBC) [Ratio] 14.0 % Normal 11.0-15.0 [facility] Comment on above: Performed By: #### C BC ####[facility] Lkbdevzglb[address] [place], [place] [address]Dr. Farhat Leal Hematocrit (Bld) [Volume fraction] 35.9 % Critically low 42.0-54.0 [facility] Comment on above: Performed By: #### C BC ####[facility] H[address]zbnbzaoy[address] [place], [place] [address]Dr. Farhat Leal Hemoglobin (Bld) [Mass/Vol] 12.0 g/dL Critically low 14.0-18.0 [facility] Comment on above: Performed By: #### C BC ####[facility] [address] [place], [place] [id number]. Farhat Leal IG # 0.04 10e3/ul Critically high 0.00-0.03 [facility] Comment on above: Performed By: #### C BC ####[facility] Hqnqghjwj[address] [place], [place] [id number]. Farhat Leal IG % 0.6 % Critically high 0.0-0.5 [facility] Comment on above: Performed By: #### C BC ####[facility] [address] [place] [address]P[address]. Farhat Elvis LYMPH # 1.5 103/ul Normal 1.2-3.8 [facility] Comment on above: Performed By: #### C BC ####[facility] Awqmhuzeii[address] [place] [address]Dr. Madelynlorri Leal Lymphocytes/100 WBC (Bld) 21.5 % Normal 20.5-60.0 [facility] Comment on above: Performed By: #### C BC ####[facility] Vsbvmwgatn8153 [place] [address]Dr. Madelynlorri Leal MANUAL DIFF REQ NO Normal [facility] Comment on above: Performed By: #### C BC ####[facility] Wfbqhjofou6454 [place] [address]Dr. Farhat Elvis MCH (RBC) [Entitic mass] 30.8 pg Normal 25.9-34.0 [facility] Comment on above: Performed By: #### C BC ####[facility] K[address]rhkuercb[address] [place], [place] [address]Dr. Farhat Elvis MCHC (RBC) [Mass/Vol] 33.4 g/dL Normal 29.9-35.2 [facility] Comment on above: Performed By: #### C BC ####[facility] Jcbebckbyc[address] [place], [place] [address]Dr. Farhat Leal MCV (RBC) [Entitic vol] 92.1 fL Normal 80.0-94.0 [facility] Comment on above: Performed By: #### C BC ####[facility] Apefecivix[address] [place], [place] [address]Dr. Farhat Leal MONO # 0.6 103/ul Normal 0.3-0.8 [facility] Comment on above: Performed By: #### C BC ####[facility] Clbtimfxre[address] [place], [place] [address]Dr. Madelynlorri Leal Monocytes/100 WBC (Bld) 8.7 % Normal 1.7-12.0 [facility] Comment on above: Performed By: #### C BC ####[facility] Mbxmqzuxxc[address] [place], [place] [address]Dr. Farhat Leal NEUT # 4.4 103/ul Normal 1.4-6.5 [facility] Comment on above: Performed By: #### C BC ####[facility] Jnxigkycsb7[address] [place] [address]Dr. Farhat Leal Neutrophils/100 WBC (Bld) 64.5 % Normal 43.0-75.0 [facility] Comment on above: Performed By: #### C BC ####[facility] [facility] [address] [place] [phone]. Farhat Leal Platelet mean volume (Bld) [Entitic vol] 10.1 fL Normal 9.5-13.5 The [facility] Comment on above: Performed By: #### C BC ####[facility] Zqvucnqkas[address] [place] [address]Dr. Farhat Elvis PLT 177 103/ul Normal 150-450 [facility] Comment on above: Performed By: #### C BC ####[facility] Ylinvnhgsw[address] [place], [place] [address]Dr. Farhat Elvis RBC 3.90 106/ul Critically low 4.70-6.10 The [facility] Comment on above: Performed By: #### C BC ####[facility] Bkwbyixlvb1215[address] [place], [place] [address]Dr. Farhat Leal WBC 6.8 103/ul Normal 4.0-11.0 [facility] Comment on above: Performed By: #### C BC ####[facility] Jdlvxilhsg85[address] [place] [address]DrSkylar Leal PROF 14(COMP METB)on 023 Albumin [Mass/Vol] 2.8 g/dL Critically low 3.4-5.0 Th [facility] Comment on above: Performed By: #### C MP ####[facility] Xbbisbiiwi9[address] [place], [place] [address]Dr. Madelynlorri Elvis Albumin/Globulin [Mass ratio] 0.8 {ratio} Normal [facility] Comment on above: Performed By: #### C MP ####[facility] Qxvelbujki[address] [place] [address]Dr. Farhat Leal ALP [Catalytic activity/Vol] 68 U/L Normal 46-116 [facility] Comment on above: Performed By: #### C MP ####[facility] Pzaxgmsryt85[address] [place], [place] [address]Dr. Farhat Leal ALT [Catalytic activity/Vol] 20 U/L Normal 16-63 [facility] Comment on above: Performed By: #### C MP ####[facility] Yxzrsmmxjz2008[address] [place], [place] [address]Dr. Farhat Elvis Anion gap [Moles/Vol] 11.1 mmol/L Normal Th e [facility] Comment on above: Performed By: #### C MP ####[facility] Pxhrmwzeab5340[address] [place], [place] [address]Dr. Farhat Elvis AST [Catalytic activity/Vol] 22 U/L Normal 15-37 [facility] Comment on above: Performed By: #### C MP ####[facility] Vfisjjromu5735[address] [place], [place] [address]Dr. Farhat Elvis Bilirubin [Mass/Vol] 0.4 mg/dL Normal 0.2-1.0 [facility] Comment on above: Performed By: #### C MP ####[facility] Xwnygusisj9188[address] [place], [place] [address]Dr. Farhat Elvis Calcium [Mass/Vol] 8.5 mg/dL Normal 8.5-10.[address] [facility] Comment on above: Performed By: #### C MP ####[facility] Qexvvdrnnb1184[address] [place], [place] [address]Dr. Madelynlorri Leal Chloride [Moles/Vol] 106 mmol/L Normal 98-107 [facility] Comment on above: Performed By: #### C MP ####[facility] Anjxvenhhh648[address] [place], [place] [address]Dr. Farhat Leal CO2 [Moles/Vol] 29.1 mmol/L Normal 21.0-32.0 [facility] Comment on above: Performed By: #### C MP ####[facility] Lfnyfyphyb040[address] [place], [place] [address]Dr. Farhat Leal Creatinine [Mass/Vol] 1.70 mg/dL Critically high 0.70-1.30 [facility] Comment on above: Performed By: #### C MP ####[facility] Wiaercvend[address] [place] [address]Dr. Farhat Leal EGFR-AF CYMRO 48 mL/min/1.73m2 Critically low >=60 [facility] Comment on above: Performed By: #### C MP ####[facility] Wkwkd[address]vkz[address] [place] [phone]. Farhat Elvis EGFR-NON AF CYMRO 39 mL/min/1.73m2 Critically low >=60 [facility] Comment on above: Performed By: #### C MP ####[facility] Axhgfbzehm7311[address] [place], [place] [address]Dr. Farhat Elvis Globulin (S) [Mass/Vol] 3.6 g/dL Normal [facility] Comment on above: Performed By: #### C MP ####[facility] Vvmtqikpwl3139[address] [place], [place] [address]Dr. Farhat Elvis Glucose [Mass/Vol] 312 mg/dL Critically high 74-106 [facility] Comment on above: Performed By: #### C MP ####[facility] Bfzgrxndfk8768[address] [place], [place] [address]Dr. Farhat Leal Potassium [Moles/Vol] 4.2 mmol/L Normal 3.5-5.1 [facility] Comment on above: Performed By: #### C MP ####[facility] Qowhnlnliv7[address] [place] [address]Dr. Farhat Leal Protein [Mass/Vol] 6.4 g/dL Normal 6.4-8.2 [facility] Comment on above: Performed By: #### C MP ####[facility] Gudtmbbxdn9[address] [place], [place] [address]Dr. Farhat Leal Sodium [Moles/Vol] 142 mmol/L Normal 136-[address] [facility] Comment on above: Performed By: #### C MP ####[facility] Ianajrudng705737 [address] [place], [place] [address]Dr. Farhat Leal Urea nitrogen [Mass/Vol] 49.0 mg/dL Critically high 7.0-18.0 [facility] Comment on above: Performed By: #### C MP ####[facility] Kbafnybgeb924[address] [place], [place] [address]Dr. Farhat Leal Urea nitrogen/Creatinine [Mass ratio] 28.8 mg/mg Normal [facility] Comment on above: Performed By: #### C MP ####[facility] Fktprsfrxa2128[address] [place], [place] [address]DrSkylar Leal PROTIMEon 07-03-2022 INR Coag (PPP) [Relative time] 2.23 {INR} Normal [facility] Comment on above: Performed By: #### P T ####[facility] Sfaxssxchj475[address] [place], [place] [address]DrSkylar Leal INR GUIDELINES SEE BELOW Normal [facility] Comment on above: Result Comment: MALINA RED INR: 2.0 - 3.0 CONDITIONS NOT LISTED BELOW 2.5 - 3.5 FOR PROSTHETIC HEART VALVE REPLACEMENT 2.5 - 3.5 RECURRENT THROMBOSIS Performed By: #### P T ####[facility] Cpwsjsbavz[address] [place], [place] [address]Skylar Leal PT Coag (PPP) [Time] 22.6 s Critically high 9.0-11.6 [facility] Comment on above: Performed By: #### P T ####[facility] Qzwqjewfhn[address] [place], [place] [address]Skylar Leal FK506 (TACROLIMUS) WHOLE BLO ODon 06-29-2022 Tacrolimus (FK506), Blood 12.2 ng/mL Normal 2.0-20.0 [facility] Comment on above: Result Comment: Trou gh (immediately following transplant) 15.0 . Trough (steady state, 2 weeks or more after transplant): 3.0 - 8.0 . Performed by LC-MS/MS technology. Performed By: #### F K506T ####[facility] Qbavjdkwrl4523[address] [place], [place] [address]DrSkylar Leal CBC AUTO DIFFon 06-26-2022 BASO # 0.0 103/ul Normal 0.0-0.1 [facility] Comment on above: Performed By: #### C BC ####[facility] Yyyuzdzzxr4[address] [place] [address]Dr. Farhat Leal Basophils/100 WBC (Bld) 0.5 % Normal 0.2-2.0 [facility] Comment on above: Performed By: #### C BC ####[facility] Sbxrnudyux6669[address] [place], [place] [address]Dr. Farhat Leal EO # 0.3 103/ul Normal 0.0-0.7 [facility] Comment on above: Performed By: #### C BC ####[facility] Vzkemcrbrg4208[address] [place], [place] [address]Dr. Farhat Elvis Eosinophils/100 WBC (Bld) 4.3 % Normal 0.9-7.0 [facility] Comment on above: Performed By: #### C BC ####[facility] Fhxcukmedi0433[address] [place], [place] [address]Dr. Farhat Leal Erythrocyte distribution width (RBC) [Ratio] 14.1 % Normal 11.0-15.0 [facility] Comment on above: Performed By: #### C BC ####[facility] Rasvdxaqgk5665[address] [place], [place] [address]Dr. Farhat Leal Hematocrit (Bld) [Volume fraction] 35.4 % Critically low 42.0-54.0 [facility] Comment on above: Performed By: #### C BC ####[facility] Dvzglmioav[address] [place], [place] [address]Dr. Farhat Leal Hemoglobin (Bld) [Mass/Vol] 11.8 g/dL Critically low 14.0-18.0 [facility] Comment on above: Performed By: #### C BC ####[facility] Jiubvxkmsj9866[address] [place], [place] [address]Dr. Farhat Elvis IG # 0.02 10e3/ul Normal 0.00-0.03 [facility] Comment on above: Performed By: #### C BC ####[facility] Ymgumzrarc1087[address] [place], [place] [address]Dr. Madelynlorri Leal IG % 0.3 % Normal 0.0-0.5 [facility] Comment on above: Performed By: #### C BC ####[facility] Xguygjbpcl37[address] [place] [address]Dr. Farhat Elvis LYMPH # 2.4 103/ul Normal 1.2-3.8 [facility] Comment on above: Performed By: #### C BC ####[facility] Yrctxnnnfs34[address] [place] [address]Dr. Madelynlorri Leal Lymphocytes/100 WBC (Bld) 40.4 % Normal 20.5-60.0 [facility] Comment on above: Performed By: #### C BC ####[facility] Asohorbisl[address] [place] [address]Dr. Farhat Leal MANUAL DIFF REQ NO Normal [facility] Comment on above: Performed By: #### C BC ####[facility] Fgjvitqidl8510[address] [place], [place] [address]Dr. Farhat Elvis MCH (RBC) [Entitic mass] 31.0 pg Normal 25.9-34.0 [facility] Comment on above: Performed By: #### C BC ####[facility] Wtiklkvpnh[address] [place], [place] [address]Dr. Farhat Elvis MCHC (RBC) [Mass/Vol] 33.3 g/dL Normal 29.9-35.2 [facility] Comment on above: Performed By: #### C BC ####[facility] Iyyxggxxvc5795[address] [place], [place] [address]Dr. Farhat Leal MCV (RBC) [Entitic vol] 92.9 fL Normal 80.0-94.0 [facility] Comment on above: Performed By: #### C BC ####[facility] Rfezxyxkhv96[address] [place], [place] [address]Dr. Farhat Leal MONO # 0.7 103/ul Normal 0.3-0.8 [facility] Comment on above: Performed By: #### C BC ####[facility] Zzgbxjvldh4949[address] [place], [place] [address]Dr. Farhat Leal Monocytes/100 WBC (Bld) 11.1 % Normal 1.7-12.0 [facility] Comment on above: Performed By: #### C BC ####[facility] Ooqxvuokxo[address] [place] [address]Dr. Madelynlorri Leal NEUT # 2.6 103/ul Normal 1.4-6.5 [facility] Comment on above: Performed By: #### C BC ####[facility] Trommschdy[address] [place] [address]Dr. Farhat Leal Neutrophils/100 WBC (Bld) 43.4 % Normal 43.0-75.0 [facility] Comment on above: Performed By: #### C BC ####[facility] Noiadiafzn[address] [place] [address]Dr. Farhat Leal Platelet mean volume (Bld) [Entitic vol] 10.4 fL Normal 9.5-13.5 [facility] Comment on above: Performed By: #### C BC ####[facility] Kuwexdswef[address] [place] [address]Dr. Farhat Leal PLT 211 103/ul Normal 150-450 [facility] Comment on above: Performed By: #### C BC ####[facility] Ixhkenvpbm10[address] [place], [place] [address]Dr. Farhat Leal RBC 3.81 106/ul Critically low 4.70-6.10 [facility] Comment on above: Performed By: #### C BC ####[facility] Nrntdtoqwq97[address] [place] [address]Dr. Farhat Leal WBC 6.0 103/ul Normal 4.0-11.0 [facility] Comment on above: Performed By: #### C BC ####[facility] Outjoyxdqo[address] [place] [phone] Leal PROF 14(COMP METB)on 023 Albumin [Mass/Vol] 2.6 g/dL Critically low 3.4-5.0 [facility] Comment on above: Performed By: #### C MP ####[facility] Jolxcvmvis9[address] [place] [address]DrSkylar Leal Albumin/Globulin [Mass ratio] 0.8 {ratio} Normal [facility] Comment on above: Performed By: #### C MP ####[facility] Trqfeeqexo06[address] [place] [address]Dr. Farhat Leal ALP [Catalytic activity/Vol] 64 U/L Normal 46-116 [facility] Comment on above: Performed By: #### C MP ####[facility] Suffyxejta[address] [place] [address]Dr. Farhat Elvis ALT [Catalytic activity/Vol] 18 U/L Normal 16-63 [facility] Comment on above: Performed By: #### C MP ####[facility] Escnryoaro8897[address] [place], [place] [address]Dr. Farhat Leal Anion gap [Moles/Vol] 10.2 mmol/L Normal [facility] Comment on above: Performed By: #### C MP ####[facility] Yczimhkwsn[address] [place], [place] [address]Dr. Farhat Elvis AST [Catalytic activity/Vol] 16 U/L Normal 15-37 [facility] Comment on above: Performed By: #### C MP ####[facility] Tyhiqxncko0474[address] [place], [place] [address]Dr. Madelynlorri Elvis Bilirubin [Mass/Vol] 0.6 mg/dL Normal 0.2-1.0 [facility] Comment on above: Performed By: #### C MP ####[facility] Ubikbkhpzl76[address] [place], [place] [address]Dr. Farhat Leal Calcium [Mass/Vol] 8.5 mg/dL Normal 8.5-10.[address] [facility] Comment on above: Performed By: #### C MP ####[facility] Lbhmccrmua09[address] [place], [place] [address]Dr. Farhat Leal Chloride [Moles/Vol] 106 mmol/L Normal 98-107 [facility] Comment on above: Performed By: #### C MP ####[facility] Vbyxvevmva54[address] [place] [address]Dr. Farhat Leal CO2 [Moles/Vol] 29.8 mmol/L Normal 21.0-32.0 [facility] Comment on above: Performed By: #### C MP ####[facility] [address]zpzrg[address] [place] [phone]. Farhat Leal Creatinine [Mass/Vol] 1.60 mg/dL Critically high 0.70-1.30 [facility] Comment on above: Performed By: #### C MP ####[facility] Jhlckwxnxx6[address] [place] [phone]. Farhat Leal EGFR-AF CYMRO 51 mL/min/1.73m2 Critically low >=60 [facility] Comment on above: Performed By: #### C MP ####[facility] Iixfscjawk7084 [place] [phone]. Farhat Elvis EGFR-NON AF CYMRO 42 mL/min/1.73m2 Critically low >=60 [facility] Comment on above: Performed By: #### C MP ####[facility] Wlbmphtpio3101 [place] [phone]. Farhat Elvis Globulin (S) [Mass/Vol] 3.4 g/dL Normal [facility] Comment on above: Performed By: #### C MP ####[facility] Tuqdsahiyr9786 [place] [phone]. Farhat Leal Glucose [Mass/Vol] 178 mg/dL Critically high 74-106 T [facility] Comment on above: Performed By: #### C MP ####[facility] Ufxqbpghcd2789 [place] [phone]. Farhat Elvis Potassium [Moles/Vol] 4.0 mmol/L Normal 3.5-5.1 [facility] Comment on above: Performed By: #### C MP ####[facility] Kparmjofjv9683 [place] [phone]. Farhat Elvis Protein [Mass/Vol] 6.0 g/dL Critically low 6.4-8.2 Th [facility] Comment on above: Performed By: #### C MP ####[facility] Uehzlzgsxa95[address] [place] [phone]. Farhat Elvis Sodium [Moles/Vol] 142 mmol/L Normal 136-[address] [facility] Comment on above: Performed By: #### C MP ####[facility] Nlgutazvwc68[address] [place] [address]Dr. Farhat Leal Urea nitrogen [Mass/Vol] 49.0 mg/dL Critically high 7.0-18.0 [facility] Comment on above: Performed By: #### C MP ####[facility] Snydebylud6[address] [place] [address]Dr. Farhat Leal Urea nitrogen/Creatinine [Mass ratio] 30.6 mg/mg Normal [facility] Comment on above: Performed By: #### C MP ####[facility] Zwdjyecplk[address] [place], [place] [address]Dr. Farhat Leal PROTIMEon 06-26-2022 INR Coag (PPP) [Relative time] 1.77 {INR} Normal [facility] Comment on above: Performed By: #### P T ####[facility] Dkxfmohjop1625[address] [place], [place] [address]Dr. Farhat Leal INR GUIDELINES SEE BELOW Normal [facility] Comment on above: Result Comment: MALINA RED INR: 2.0 - 3.0 CONDITIONS NOT LISTED BELOW 2.5 - 3.5 FOR PROSTHETIC HEART VALVE REPLACEMENT 2.5 - 3.5 RECURRENT THROMBOSIS Performed By: #### P T ####[facility] Lquhzppmpc20[address] [place], [place] [address]Dr. Farhat Leal PT Coag (PPP) [Time] 18.2 s Critically high 9.0-11.6 [facility] Comment on above: Performed By: #### P T ####[facility] Cumzmeeqmi[address] [place], [place] [address]Dr. Farhat Leal FK506 (TACROLIMUS) WHOLE BLO ODon 06-22-2022 Tacrolimus (FK506), Blood 24.5 ng/mL Invalid Interpretation Code 2.0-20.0 [facility] Comment on above: Result Comment: Trou gh (immediately following transplant) 15.0 . Trough (steady state, 2 weeks or more after transplant): 3.0 - 8.0 . Performed by LC-MS/MS technology.Patient drug level exceeds published reference range. Evaluateclinically for signs of potential toxicity. Performed By: #### F K506T ####[facility] Wizybnakpt[address] [place] [address]Dr. Farhat Elvis CBC AUTO DIFFon 06-19-2022 BASO # 0.1 103/ul Normal 0.0-0.1 [facility] Comment on above: Performed By: #### C BC ####[facility] Orqngdllhi48[address] [place], [place] [address]Dr. Farhat Leal Basophils/100 WBC (Bld) 0.7 % Normal 0.2-2.0 [facility] Comment on above: Performed By: #### C BC ####[facility] Lzvignxmaj[address] [place], [place] [address]Dr. Farhat Leal EO # 0.4 103/ul Normal 0.0-0.7 [facility] Comment on above: Performed By: #### C BC ####[facility] Toceqvxlwx5040[address] [place], [place] [address]Dr. Farhat Leal Eosinophils/100 WBC (Bld) 5.7 % Normal 0.9-7.0 [facility] Comment on above: Performed By: #### C BC ####[facility] Gtwctajdiq7[address] [place], [place] [address]Dr. Farhat Leal Erythrocyte distribution width (RBC) [Ratio] 14.5 % Normal 11.0-15.0 [facility] Comment on above: Performed By: #### C BC ####[facility] Ifpxrnixee599[address] [place], [place] [address]Dr. Farhat Leal Hematocrit (Bld) [Volume fraction] 34.1 % Critically low 42.0-54.0 [facility] Comment on above: Performed By: #### C BC ####[facility] Czvmevvcko8427[address] [place], [place] [address]Dr. Farhat Leal Hemoglobin (Bld) [Mass/Vol] 11.3 g/dL Critically low 14.0-18.0 [facility] Comment on above: Performed By: #### C BC ####[facility] Gaikxsobne67[address] [place], [place] [address]Dr. Farhat Leal IG # 0.02 10e3/ul Normal 0.00-0.03 [facility] Comment on above: Performed By: #### C BC ####[facility] Scqjcahowr4979 [place] [phone] Farhat Elvis IG % 0.3 % Normal 0.0-0.5 [facility] Comment on above: Performed By: #### C BC ####[facility] Fygxeinhee9347 [place] [address]DrSkylar Leal LYMPH # 3.1 103/ul Normal 1.2-3.8 [facility] Comment on above: Performed By: #### C BC ####[facility] Azmnxyuorv8694 [place] [address]DrSkylar eLal Lymphocytes/100 WBC (Bld) 40.6 % Normal 20.5-60.0 [facility] Comment on above: Performed By: #### C BC ####[facility] Skcvyytusw[address] [place], [place] [address]DrSkylar Leal MANUAL DIFF REQ NO Normal [facility] Comment on above: Performed By: #### C BC ####[facility] Ecahtecuas3367 [place] [phone] Farhat Elvis MCH (RBC) [Entitic mass] 30.6 pg Normal 25.9-34.0 [facility] Comment on above: Performed By: #### C BC ####[facility] Oqqbetsfjf4[address] [place], [place] [address]DrSkylar Farhat Elvis MCHC (RBC) [Mass/Vol] 33.1 g/dL Normal 29.9-35.2 [facility] Comment on above: Performed By: #### C BC ####[facility] Ajyknzlojm2503 [place] [phone] Leal MCV (RBC) [Entitic vol] 92.4 fL Normal 80.0-94.0 [facility] Comment on above: Performed By: #### C BC ####[facility] Noxxklpcyz14[address] [place], [place] [address]DrSkylar Leal MONO # 0.8 103/ul Normal 0.3-0.8 [facility] Comment on above: Performed By: #### C BC ####[facility] Tazvasjzyx60[address] [place] [address]Dr. Farhat Leal Monocytes/100 WBC (Bld) 10.6 % Normal 1.7-12.0 [facility] Comment on above: Performed By: #### C BC ####[facility] Eeseasyfib49[address] [place] [address]Dr. Farhat Leal NEUT # 3.2 103/ul Normal 1.4-6.5 [facility] Comment on above: Performed By: #### C BC ####[facility] Rcjqisxacy1332 [place] [address]Dr. Farhat Leal Neutrophils/100 WBC (Bld) 42.1 % Critically low 43.0-75.0 [facility] Comment on above: Performed By: #### C BC ####[facility] Hmxawghaeg6513 [place] [address]Dr. Farhat Leal Platelet mean volume (Bld) [Entitic vol] 10.6 fL Normal 9.5-13.5 [facility] Comment on above: Performed By: #### C BC ####[facility] Wxaqaaptax[address] [place], [place] [address]Dr. Farhat Leal PLT 187 103/ul Normal 150-450 [facility] Comment on above: Performed By: #### C BC ####[facility] Hwiwiuepgi25[address] [place] [phone]. Farhat Leal RBC 3.69 106/ul Critically low 4.70-6.10 The [facility] Comment on above: Performed By: #### C BC ####[facility] Fcfanxmkug8847 [place] [phone]. Farhat Leal WBC 7.7 103/ul Normal 4.0-11.0 [facility] Comment on above: Performed By: #### C BC ####[facility] Veqrknjapb1960 [place] [phone]. Farhat Leal PROF 14(COMP METB)on 023 Albumin [Mass/Vol] 2.5 g/dL Critically low 3.4-5.0 Th [facility] Comment on above: Performed By: #### C MP ####[facility] Rztpdanxzq6470 [place] [address]Dr. Farhat Leal Albumin/Globulin [Mass ratio] 0.8 {ratio} Normal [facility] Comment on above: Performed By: #### C MP ####[facility] Hmyedjmvtp6652 [place] [address]Dr. Farhat Leal ALP [Catalytic activity/Vol] 60 U/L Normal 46-116 [facility] Comment on above: Performed By: #### C MP ####[facility] Lmfmnoznrt[address] [place], [place] [address]Dr. Farhat Leal ALT [Catalytic activity/Vol] 16 U/L Normal 16-63 [facility] Comment on above: Performed By: #### C MP ####[facility] Kdbztoygfm20[address] [place], [place] [address]Dr. Farhat Leal Anion gap [Moles/Vol] 9.1 mmol/L Normal [facility] Comment on above: Performed By: #### C MP ####[facility] Ivcacoygzy1436[address] [place], [place] [address]Dr. Farhat Leal AST [Catalytic activity/Vol] 31 U/L Normal 15-37 [facility] Comment on above: Performed By: #### C MP ####[facility] Sfgxxpliwa3216[address] [place], [place] [address]Dr. Farhat Leal Bilirubin [Mass/Vol] 0.3 mg/dL Normal 0.2-1.0 [facility] Comment on above: Performed By: #### C MP ####[facility] Ztbxlinkom8[address] [place], [place] [address]Dr. Farhat Leal Calcium [Mass/Vol] 8.2 mg/dL Critically low 8.5-10.1 Th [facility] Comment on above: Performed By: #### C MP ####[facility] Yxlalnjfci04[address] [place], [place] [address]Dr. Farhat Leal Chloride [Moles/Vol] 106 mmol/L Normal 98-107 [facility] Comment on above: Performed By: #### C MP ####[facility] Aauavhdiwr6929 [place] [phone]. Farhat Leal CO2 [Moles/Vol] 27.0 mmol/L Normal 21.0-32.0 [facility] Comment on above: Performed By: #### C MP ####[facility] Ycpfjtgwty0044 [place] [phone]. Farhat Elvis Creatinine [Mass/Vol] 1.51 mg/dL Critically high 0.70-1.30 [facility] Comment on above: Performed By: #### C MP ####[facility] Ruyfdjacbp2235 [place] [phone]. Farhat Elvis EGFR-AF CYMRO 55 mL/min/1.73m2 Critically low >=60 [facility] Comment on above: Performed By: #### C MP ####[facility] Dtmubekfrp4718 [place] [address]Dr. Madelynlorri Elvis EGFR-NON AF CYMRO 45 mL/min/1.73m2 Critically low >=60 [facility] Comment on above: Performed By: #### C MP ####[facility] Uvsusdyrxw0274 [place] [address]Dr. Farhat Elvis Globulin (S) [Mass/Vol] 3.2 g/dL Normal [facility] Comment on above: Performed By: #### C MP ####[facility] Pzryjbyxmq3958 [place] [phone]. Farhat Leal Glucose [Mass/Vol] 165 mg/dL Critically high 74-106 [facility] Comment on above: Performed By: #### C MP ####[facility] Ilblmawvfa5222 [place] [phone]. Farhat Elvis Potassium [Moles/Vol] 4.1 mmol/L Normal 3.5-5.1 [facility] Comment on above: Performed By: #### C MP ####[facility] Lfvetpxmpi2964 [place] [phone]. Madelynlorri Leal Protein [Mass/Vol] 5.7 g/dL Critically low 6.4-8.2 Th e [facility] Comment on above: Performed By: #### C MP ####[facility] Kxfqffwrgv0611 [place] [address]Dr. Farhat Leal Sodium [Moles/Vol] 138 mmol/L Normal 136-[address] [facility] Comment on above: Performed By: #### C MP ####[facility] Rfbfoyamcp2468 [place] [address]Dr. Farhat Leal Urea nitrogen [Mass/Vol] 51.0 mg/dL Critically high 7.0-18.0 [facility] Comment on above: Performed By: #### C MP ####[facility] Jkvdxriruy9930 [place] [address]Dr. Farhat Leal Urea nitrogen/Creatinine [Mass ratio] 33.8 mg/mg Normal [facility] Comment on above: Performed By: #### C MP ####[facility] Jtskbdthri7569 [place] [address]Dr. Farhat Leal FK506 (TACROLIMUS) WHOLE BLO ODon 06-15-2022 Tacrolimus (FK506), Blood 16.4 ng/mL Normal 2.0-20.0 [facility] Comment on above: Result Comment: Trou gh (immediately following transplant) 15.0 . Trough (steady state, 2 weeks or more after transplant): 3.0 - 8.0 . Performed by LC-MS/MS technology. Performed By: #### F K506T ####[facility] Eyxpwqbfoj5959 [place] [address]Dr. Farhat Leal PROTIMEon 06-15-2022 INR Coag (PPP) [Relative time] 1.64 {INR} Normal [facility] Comment on above: Performed By: #### P T ####[facility] Slwtnphkke26[address] [place], [place] [address]Dr. Farhat Leal INR GUIDELINES SEE BELOW Normal [facility] Comment on above: Result Comment: MALINA RED INR: 2.0 - 3.0 CONDITIONS NOT LISTED BELOW 2.5 - 3.5 FOR PROSTHETIC HEART VALVE REPLACEMENT 2.5 - 3.5 RECURRENT THROMBOSIS Performed By: #### P T ####[facility] Toinunirls9995 [place] [address]Dr. Farhat Leal PT Coag (PPP) [Time] 16.9 s Critically high 9.0-11.6 [facility] Comment on above: Performed By: #### P T ####[facility] Fuathlince[address] [place], [place] [address]Dr. Farhat Leal CBC AUTO DIFFon 06-12-2022 BASO # 0.0 103/ul Normal 0.0-0.1 [facility] Comment on above: Performed By: #### C BC ####[facility] Cgzdxbljgy9397[address] [place], [place] [address]Dr. Farhat Leal Basophils/100 WBC (Bld) 0.4 % Normal 0.2-2.0 [facility] Comment on above: Performed By: #### C BC ####[facility] Xqbqpnopcx9[address] [place], [place] [address]Dr. Farhat Leal EO # 0.4 103/ul Normal 0.0-0.7 [facility] Comment on above: Performed By: #### C BC ####[facility] Vdqefuzget1857[address] [place], [place] [address]Dr. Farhat Leal Eosinophils/100 WBC (Bld) 5.4 % Normal 0.9-7.0 [facility] Comment on above: Performed By: #### C BC ####[facility] Zvkljlrmhg34[address] [place], [place] [address]Dr. Farhat Leal Erythrocyte distribution width (RBC) [Ratio] 14.7 % Normal 11.0-15.0 [facility] Comment on above: Performed By: #### C BC ####[facility] Kgykzblevu9[address] [place], [place] [address]Dr. Farhat Leal Hematocrit (Bld) [Volume fraction] 34.8 % Critically low 42.0-54.0 [facility] Comment on above: Performed By: #### C BC ####[facility] Kurfblcuto67[address] [place], [place] [address]Dr. Farhat Leal Hemoglobin (Bld) [Mass/Vol] 11.7 g/dL Critically low 14.0-18.0 [facility] Comment on above: Performed By: #### C BC ####[facility] Pjygiillhc8208 [place] [phone]. Madelynlorri Elvis IG # 0.02 10e3/ul Normal 0.00-0.03 [facility] Comment on above: Performed By: #### C BC ####[facility] Pimvfvvxhq4165 [place] [phone]. Farhat Leal IG % 0.3 % Normal 0.0-0.5 [facility] Comment on above: Performed By: #### C BC ####[facility] Qkuenksjfy8765 [place] [address]Dr. Farhat Leal LYMPH # 2.5 103/ul Normal 1.2-3.8 [facility] Comment on above: Performed By: #### C BC ####[facility] Hxgxgmnuqx5511 [place] [address]Dr. Farhat Leal Lymphocytes/100 WBC (Bld) 36.8 % Normal 20.5-60.0 [facility] Comment on above: Performed By: #### C BC ####[facility] Yierfmezez0012 [place] [address]DrSkylar Leal MANUAL DIFF REQ NO Normal [facility] Comment on above: Performed By: #### C BC ####[facility] Noqpejmdeg2545 [place] [phone]. Farhat Leal MCH (RBC) [Entitic mass] 30.9 pg Normal 25.9-34.0 [facility] Comment on above: Performed By: #### C BC ####[facility] Phwmtskgjb2384 [place] [phone]. Farhat Leal MCHC (RBC) [Mass/Vol] 33.6 g/dL Normal 29.9-35.2 [facility] Comment on above: Performed By: #### C BC ####[facility] Yzunbpsnxv4710 [place] [phone]. Farhat Leal MCV (RBC) [Entitic vol] 91.8 fL Normal 80.0-94.0 [facility] Comment on above: Performed By: #### C BC ####[facility] Mpxahzwrpn8965 [place] [phone]. Farhat Leal MONO # 0.8 103/ul Normal 0.3-0.8 [facility] Comment on above: Performed By: #### C BC ####[facility] Cnpqhxguyn6069 [place] [phone]. Farhat Leal Monocytes/100 WBC (Bld) 11.9 % Normal 1.7-12.0 [facility] Comment on above: Performed By: #### C BC ####[facility] Pqyxdeiaic8508 [place] [phone]. Farhat Leal NEUT # 3.1 103/ul Normal 1.4-6.5 [facility] Comment on above: Performed By: #### C BC ####[facility] Lnkfuggizt4092 [place] [address]Dr. Farhat Leal Neutrophils/100 WBC (Bld) 45.2 % Normal 43.0-75.0 [facility] Comment on above: Performed By: #### C BC ####[facility] Xajxkydbuf7183 [place] [phone]. Farhat Leal Platelet mean volume (Bld) [Entitic vol] 10.5 fL Normal 9.5-13.5 [facility] Comment on above: Performed By: #### C BC ####[facility] Rdxuvurokw2715 [place] [phone]. Farhat Leal PLT 175 103/ul Normal 150-450 [facility] Comment on above: Performed By: #### C BC ####[facility] Pahprznezi8751 [place] [phone]. Farhat Leal RBC 3.79 106/ul Critically low 4.70-6.10 [facility] Comment on above: Performed By: #### C BC ####[facility] Dnlzakknnc9014 [place] [phone]. Farhat Leal WBC 6.8 103/ul Normal 4.0-11.0 [facility] Comment on above: Performed By: #### C BC ####[facility] Saxitdrzsp3853 [place] [address]Dr. Farhat Leal MAGNESIUMon 06-12-2022 Magnesium [Mass/Vol] 1.6 mg/dL Critically low 1.8-2.4 [facility] Comment on above: Performed By: #### C MP, MG, PHOS ####[facility] Fnegscnhdk8016 [place] [address]Dr. Farhat Leal PHOSPHORUSon 06-12-2022 Phosphate [Mass/Vol] 3.8 mg/dL Normal 2.6-4.7 [facility] Comment on above: Performed By: #### C MP, MG, PHOS ####[facility] Nnfjyoolzj0780 [place] [address]Dr. Farhat Leal PROF 14(COMP METB)on 023 Albumin [Mass/Vol] 2.6 g/dL Critically low 3.4-5.0 [facility] Comment on above: Performed By: #### C MP, MG, PHOS ####[facility] Mmgudimfar2095 [place] [address]Dr. Farhat Leal Albumin/Globulin [Mass ratio] 0.8 {ratio} Normal [facility] Comment on above: Performed By: #### C MP, MG, PHOS ####[facility] Mmdumvajjj1528 [place] [address]Dr. Farhat Leal ALP [Catalytic activity/Vol] 64 U/L Normal 46-116 [facility] Comment on above: Performed By: #### C MP, MG, PHOS ####[facility] Xcvreagjoy9513 [place] [address]Dr. Farhat Leal ALT [Catalytic activity/Vol] 18 U/L Normal 16-63 [facility] Comment on above: Performed By: #### C MP, MG, PHOS ####[facility] Kcpmacwobj6481 [place] [address]Dr. Farhat Leal Anion gap [Moles/Vol] 12.9 mmol/L Normal [facility] Comment on above: Performed By: #### C MP, MG, PHOS ####[facility] Uoeiibufzw0546 [place] [address]Dr. Farhat Leal AST [Catalytic activity/Vol] 18 U/L Normal 15-37 [facility] Comment on above: Performed By: #### C MP, MG, PHOS ####[facility] Taaisduvpr3678 [place] [address]Dr. Farhat Leal Bilirubin [Mass/Vol] 0.4 mg/dL Normal 0.2-1.0 [facility] Comment on above: Performed By: #### C MP, MG, PHOS ####[facility] Kfjuksmpsz6372 [place] [address]Dr. Farhat Leal Calcium [Mass/Vol] 8.7 mg/dL Normal 8.5-10.[address] [facility] Comment on above: Performed By: #### C MP, MG, PHOS ####[facility] Tczjudnelf[address] [place], [place] [address]Dr. Farhat Leal Chloride [Moles/Vol] 105 mmol/L Normal 98-107 [facility] Comment on above: Performed By: #### C MP, MG, PHOS ####[facility] Qluchkhlal5[address] [place], [place] [address]Dr. Farhat Leal CO2 [Moles/Vol] 27.9 mmol/L Normal 21.0-32.0 The [facility] Comment on above: Performed By: #### C MP, MG, PHOS ####[facility] Hvcpbeqvow6235 [place] [address]Dr. Farhat Leal Creatinine [Mass/Vol] 1.53 mg/dL Critically high 0.70-1.30 [facility] Comment on above: Performed By: #### C MP, MG, PHOS ####[facility] Bckliusvvy1897 [place] [address]Dr. Farhat Leal EGFR-AF CYMRO 54 mL/min/1.73m2 Critically low >=60 [facility] Comment on above: Performed By: #### C MP, MG, PHOS ####[facility] Oghdtiwhcf0194 [place] [address]Dr. Yilan Leal EGFR-NON AF CYMRO 44 mL/min/1.73m2 Critically low >=60 [facility] Comment on above: Performed By: #### C MP, MG, PHOS ####[facility] Hmnisddhso5636 [place] [address]Dr. Farhat Leal Globulin (S) [Mass/Vol] 3.4 g/dL Normal [facility] Comment on above: Performed By: #### C MP, MG, PHOS ####[facility] Hoxcfaomaj3799 [place] [address]Dr. Farhat Leal Glucose [Mass/Vol] 179 mg/dL Critically high 74-106 T [facility] Comment on above: Performed By: #### C MP, MG, PHOS ####[facility] Kihpawymal9951 [place] [address]Dr. Farhat Leal Potassium [Moles/Vol] 3.8 mmol/L Normal 3.5-5.1 [facility] Comment on above: Performed By: #### C MP, MG, PHOS ####[facility] Ayyjasmvrx7532 [place] [address]Dr. Farhat Leal Protein [Mass/Vol] 6.0 g/dL Critically low 6.4-8.2 Th [facility] Comment on above: Performed By: #### C MP, MG, PHOS ####[facility] Vnvqefekyi0617 [place] [address]Dr. Farhat Leal Sodium [Moles/Vol] 142 mmol/L Normal 136-[address] [facility] Comment on above: Performed By: #### C MP, MG, PHOS ####[facility] Yarfglrlmo4734 [place] [address]Dr. Farhat Leal Urea nitrogen [Mass/Vol] 56.0 mg/dL Critically high 7.0-18.0 [facility] Comment on above: Performed By: #### C MP, MG, PHOS ####[facility] Ymhggnmucl6414 [place] [address]Dr. Farhat Leal Urea nitrogen/Creatinine [Mass ratio] 36.6 mg/mg [facility] Comment on above: Performed By: #### C MP, MG, PHOS ####[facility] Negjjsfvzb5277 [place] [address]Dr. Farhat Leal FK506 (TACROLIMUS) WHOLE BLO ODon 06-08-2022 Tacrolimus (FK506), Blood 13.2 ng/mL Normal 2.0-20.0 [facility] Comment on above: Result Comment: Trou gh (immediately following transplant) 15.0 . Trough (steady state, 2 weeks or more after transplant): 3.0 - 8.0 . Performed by LC-MS/MS technology. Performed By: #### F K506T ####[facility] Tjvpeklqfx92[address] [place], [place] [address]Dr. Farhat Leal CBC AUTO DIFFon 06-05-2022 BASO # 0.1 103/ul Normal 0.0-0.1 [facility] Comment on above: Performed By: #### C BC ####[facility] Rkgpyjroxr93[address] [place], [place] [address]Dr. Farhat Leal Basophils/100 WBC (Bld) 0.8 % Normal 0.2-2.0 [facility] Comment on above: Performed By: #### C BC ####[facility] Qcindnctkk9757[address] [place], [place] [address]Dr. Farhat Leal EO # 0.3 103/ul Normal 0.0-0.7 [facility] Comment on above: Performed By: #### C BC ####[facility] Wabxulcrvj9189[address] [place], [place] [address]Dr. Farhat Leal Eosinophils/100 WBC (Bld) 4.7 % Normal 0.9-7.0 [facility] Comment on above: Performed By: #### C BC ####[facility] Jrzimqntqy7833[address] [place], [place] [address]Dr. Farhat Leal Erythrocyte distribution width (RBC) [Ratio] 15.1 % Critically high 11.0-15.0 [facility] Comment on above: Performed By: #### C BC ####[facility] Akwkhaznkt9[address] [place], [place] [address]Dr. Farhat Leal Hematocrit (Bld) [Volume fraction] 35.5 % Critically low 42.0-54.0 [facility] Comment on above: Performed By: #### C BC ####[facility] Pjehiwzcuc3132 [place] [address]Dr. Farhat Leal Hemoglobin (Bld) [Mass/Vol] 11.7 g/dL Critically low 14.0-18.0 [facility] Comment on above: Performed By: #### C BC ####[facility] Aoufqlwpgl5395 [place] [address]Dr. Farhat Leal IG # 0.01 10e3/ul Normal 0.00-0.03 [facility] Comment on above: Performed By: #### C BC ####[facility] Tnacilgzdn2159[address] [place], [place] [address]Dr. Madelynlorri Elvis IG % 0.2 % Normal 0.0-0.5 [facility] Comment on above: Performed By: #### C BC ####[facility] Tbhqwywvgj8[address] [place], [place] [address]Dr. Farhat Leal LYMPH # 2.1 103/ul Normal 1.2-3.8 [facility] Comment on above: Performed By: #### C BC ####[facility] Tbipzzzouv8348[address] [place], [place] [address]Dr. Farhat Leal Lymphocytes/100 WBC (Bld) 34.5 % Normal 20.5-60.0 [facility] Comment on above: Performed By: #### C BC ####[facility] Ykmacuqmut228[address] [place], [place] [address]Dr. Farhat Leal MANUAL DIFF REQ NO Normal [facility] Comment on above: Performed By: #### C BC ####[facility] Eyxpuuvcde6877[address] [place], [place] [address]Dr. Farhat Leal MCH (RBC) [Entitic mass] 30.6 pg Normal 25.9-34.0 [facility] Comment on above: Performed By: #### C BC ####[facility] Ajbrgrflbj2622[address] [place], [place] [address]Dr. Farhat Leal MCHC (RBC) [Mass/Vol] 33.0 g/dL Normal 29.9-35.2 [facility] Comment on above: Performed By: #### C BC ####[facility] Keadsjyyaq5214 [place] [phone]. Farhat Leal MCV (RBC) [Entitic vol] 92.9 fL Normal 80.0-94.0 [facility] Comment on above: Performed By: #### C BC ####[facility] Wmwoisycov5850 [place] [phone]. Farhat Leal MONO # 0.7 103/ul Normal 0.3-0.8 [facility] Comment on above: Performed By: #### C BC ####[facility] Raonqyqwxv2434 [place] [address]Dr. Farhat Leal Monocytes/100 WBC (Bld) 11.4 % Normal 1.7-12.0 [facility] Comment on above: Performed By: #### C BC ####[facility] Tkdoqmgyux[address] [place], [place] [address]Dr. Farhat Leal NEUT # 2.9 103/ul Normal 1.4-6.5 [facility] Comment on above: Performed By: #### C BC ####[facility] Vejswtwxpi4517[address] [place], [place] [address]Dr. Farhat Leal Neutrophils/100 WBC (Bld) 48.4 % Normal 43.0-75.0 [facility] Comment on above: Performed By: #### C BC ####[facility] Lvogvoluue7348[address] [place], [place] [address]Dr. Farhat Leal Platelet mean volume (Bld) [Entitic vol] 10.7 fL Normal 9.5-13.5 [facility] Comment on above: Performed By: #### C BC ####[facility] Tbgnleulvl[address] [place], [place] [id number]. Farhat Leal PLT 185 103/ul Normal 150-450 [facility] Comment on above: Performed By: #### C BC ####[facility] Mhlsfqwrva3314 [place] [phone]. Farhat Elvis RBC 3.82 106/ul Critically low 4.70-6.10 [facility] Comment on above: Performed By: #### C BC ####[facility] Nsdqppxjkv0474 [place] [address]Dr. Madelynlorri Leal WBC 6.0 103/ul Normal 4.0-11.0 [facility] Comment on above: Performed By: #### C BC ####[facility] Eghjritqud1135 [place] [address]Dr. Farhat Leal MAGNESIUMon 06-05-2022 Magnesium [Mass/Vol] 1.9 mg/dL Normal 1.8-2.4 [facility] Comment on above: Performed By: #### P HOS, MG ####[facility] [facility] [address] [place] [id number]. Farhat Leal PHOSPHORUSon 06-05-2022 Phosphate [Mass/Vol] 4.4 mg/dL Normal 2.6-4.7 [facility] Comment on above: Performed By: #### P HOS, MG ####[facility] Navvlnfmfq15[address] [place], [place] [address]Dr. Farhat Leal PROTIMEon 06-05-2022 INR Coag (PPP) [Relative time] 2.16 {INR} Normal [facility] Comment on above: Performed By: #### P T ####[facility] Exvfsklmuh04[address] [place], [place] [address]Dr. Farhat Leal INR GUIDELINES SEE BELOW Normal The [facility] Comment on above: Result Comment: MALINA RED INR: 2.0 - 3.0 CONDITIONS NOT LISTED BELOW 2.5 - 3.5 FOR PROSTHETIC HEART VALVE REPLACEMENT 2.5 - 3.5 RECURRENT THROMBOSIS Performed By: #### P T ####[facility] Utyuekjmow[address] [place] [address]Dr. Farhat Leal PT Coag (PPP) [Time] 21.9 s Critically high 9.0-11.6 [facility] Comment on above: Performed By: #### P T ####[facility] Zbgqgbfoit5[address] [place], [place] [address]Dr. Farhat Leal FK506 (TACROLIMUS) WHOLE BLO ODon [...] K506T ####[facility] Wtpeiuszfo[address] [place] [address]Dr. Farhat Leal CBC AUTO DIFFon 05-29-2022 BASO # 0.0 103/ul Normal 0.0-0.1 [facility] Comment on above: Performed By: #### C BC ####[facility] Ipnjibwvsy9[address] [place], [place] [address]DrSkylar Leal Basophils/100 WBC (Bld) 0.6 % Normal 0.2-2.0 [facility] Comment on above: Performed By: #### C BC ####[facility] Qdsgdvqcow8396[address] [place], [place] [address]DrSkylar Leal EO # 0.3 103/ul Normal 0.0-0.7 [facility] Comment on above: Performed By: #### C BC ####[facility] Nslajaakth[address] [place], [place] [address]Skylar Leal Eosinophils/100 WBC (Bld) 4.7 % Normal 0.9-7.0 [facility] Comment on above: Performed By: #### C BC ####[facility] Wymhywhvfg309[address] [place], [place] [address]DrSkylar Leal Erythrocyte distribution width (RBC) [Ratio] 15.3 % Critically high 11.0-15.0 [facility] Comment on above: Performed By: #### C BC ####[facility] Rgtrgsurou7[address] [place], [place] [address]DrSkylar Leal Hematocrit (Bld) [Volume fraction] 36.6 % Critically low 42.0-54.0 [facility] Comment on above: Performed By: #### C BC ####[facility] Vpkrxdkflj[address] [place] [address]. Farhat Leal Hemoglobin (Bld) [Mass/Vol] 12.3 g/dL Critically low 14.0-18.0 [facility] Comment on above: Performed By: #### C BC ####[facility] Dcandvhkmw[address] [place] [address]Dr. Farhat Leal IG # 0.02 10e3/ul Normal 0.00-0.03 [facility] Comment on above: Performed By: #### C BC ####[facility] Mdkhcralpl36[address] [place] [address]Dr. Farhat Leal IG % 0.3 % Normal 0.0-0.5 [facility] Comment on above: Performed By: #### C BC ####[facility] Btppxndqdu9050[address] [place], [place] [address]Dr. Farhat Leal LYMPH # 2.8 103/ul Normal 1.2-3.8 [facility] Comment on above: Performed By: #### C BC ####[facility] Zeoddnktzo092837 [address] [place], [place] [address]Dr. Farhat Leal Lymphocytes/100 WBC (Bld) 44.4 % Normal 20.5-60.0 [facility] Comment on above: Performed By: #### C BC ####[facility] Pjidfjyadq[address] [place], [place] [address]Dr. Farhat Leal MANUAL DIFF REQ NO Normal [facility] Comment on above: Performed By: #### C BC ####[facility] Qvdxxmnokw018[address] [place], [place] [address]Dr. Farhat Leal MCH (RBC) [Entitic mass] 30.4 pg Normal 25.9-34.0 [facility] Comment on above: Performed By: #### C BC ####[facility] Dwriwvmujx7946[address] [place], [place] [address]Dr. Farhat Leal MCHC (RBC) [Mass/Vol] 33.6 g/dL Normal 29.9-35.2 [facility] Comment on above: Performed By: #### C BC ####[facility] Ggtykozrin8239[address] [place], [place] [address]Dr. Farhat Leal MCV (RBC) [Entitic vol] 90.4 fL Normal 80.0-94.0 [facility] Comment on above: Performed By: #### C BC ####[facility] Whjouiskug[address] [place] [address]Dr. Farhat Leal MONO # 0.7 103/ul Normal 0.3-0.8 [facility] Comment on above: Performed By: #### C BC ####[facility] Rhscnhqlmd263[address] [place], [place] [address]Dr. Farhat Leal Monocytes/100 WBC (Bld) 10.7 % Normal 1.7-12.0 [facility] Comment on above: Performed By: #### C BC ####[facility] Hvzbttakpd511[address] [place], [place] [address]Dr. Farhat Leal NEUT # 2.5 103/ul Normal 1.4-6.5 [facility] Comment on above: Performed By: #### C BC ####[facility] Rnkswogmqr950[address] [place], [place] [address]Dr. Farhat Leal Neutrophils/100 WBC (Bld) 39.3 % Critically low 43.0-75.0 [facility] Comment on above: Performed By: #### C BC ####[facility] Jcpfwmmrdf2797[address] [place], [place] [address]Dr. Farhat Elvis Platelet mean volume (Bld) [Entitic vol] 10.5 fL Normal 9.5-13.5 [facility] Comment on above: Performed By: #### C BC ####[facility] Lpsjvxplzz9636[address] [place], [place] [address]Dr. Farhat Elvis PLT 190 103/ul Normal 150-450 [facility] Comment on above: Performed By: #### C BC ####[facility] Mmyrdxgsns3533[address] [place], [place] [address]DrSkylar Farhat Elvis RBC 4.05 106/ul Critically low 4.70-6.10 [facility] Comment on above: Performed By: #### C BC ####[facility] Iyxgftalfq696037 [address] [place], [place] [address]Dr. Farhat Leal WBC 6.4 103/ul Normal 4.0-11.0 [facility] Comment on above: Performed By: #### C BC ####[facility] Ivjemsstmf0727[address] [place], [place] [address]DrSkylar Leal PROF 14(COMP METB)on 023 Albumin [Mass/Vol] 2.5 g/dL Critically low 3.4-5.0 [facility] Comment on above: Performed By: #### C MP ####[facility] Btcxkgebxy119237 [address] [place], [place] [address]Dr. Farhat Leal Albumin/Globulin [Mass ratio] 0.8 {ratio} Normal [facility] Comment on above: Performed By: #### C MP ####[facility] Rpirhovbrm2625[address] [place], [place] [address]Dr. Farhat Leal ALP [Catalytic activity/Vol] 61 U/L Normal 46-116 [facility] Comment on above: Performed By: #### C MP ####[facility] Otfqgveyap2114[address] [place], [place] [address]Dr. Farhat Leal ALT [Catalytic activity/Vol] 16 U/L Normal 16-63 [facility] Comment on above: Performed By: #### C MP ####[facility] Avujrfekgv4934[address] [place], [place] [address]Dr. Farhat Leal Anion gap [Moles/Vol] 12.3 mmol/L Normal [facility] Comment on above: Performed By: #### C MP ####[facility] Gcsflmssax3197[address] [place], [place] [address]Dr. Farhat Leal AST [Catalytic activity/Vol] 18 U/L Normal 15-37 [facility] Comment on above: Performed By: #### C MP ####[facility] Oszdsveeff070437 [address] [place], [place] [address]Dr. Farhat Leal Bilirubin [Mass/Vol] 0.5 mg/dL Normal 0.2-1.0 [facility] Comment on above: Performed By: #### C MP ####[facility] Thuuutqkxy1770[address] [place], [place] [address]Dr. Farhat Leal Calcium [Mass/Vol] 8.6 mg/dL Normal 8.5-10.[address] [facility] Comment on above: Performed By: #### C MP ####[facility] Wjugllycvu9229[address] [place], [place] [address]Dr. Farhat Leal Chloride [Moles/Vol] 105 mmol/L Normal 98-107 [facility] Comment on above: Performed By: #### C MP ####[facility] Nhrwjrzhah5374[address] [place], [place] [address]Dr. Madelynlorri Elvis CO2 [Moles/Vol] 28.6 mmol/L Normal 21.0-32.0 [facility] Comment on above: Performed By: #### C MP ####[facility] Cqzutcjjol1844[address] [place], [place] [address]Dr. Farhat Leal Creatinine [Mass/Vol] 1.47 mg/dL Critically high 0.70-1.30 [facility] Comment on above: Performed By: #### C MP ####[facility] Kqfuulmidf5639[address] [place], [place] [address]Dr. Farhat Leal EGFR-AF CYMRO 56 mL/min/1.73m2 Critically low >=60 [facility] Comment on above: Performed By: #### C MP ####[facility] Iwvqpagzen797[address] [place], [place] [address]Dr. Farhat Leal EGFR-NON AF CYMRO 46 mL/min/1.73m2 Critically low >=60 [facility] Comment on above: Performed By: #### C MP ####[facility] Wtdrqyxvfx414[address] [place], [place] [address]Dr. Farhat Leal Globulin (S) [Mass/Vol] 3.3 g/dL Normal [facility] Comment on above: Performed By: #### C MP ####[facility] Fblpviztde9406[address] [place], [place] [address]Dr. Farhat Leal Glucose [Mass/Vol] 164 mg/dL Critically high 74-106 T [facility] Comment on above: Performed By: #### C MP ####[facility] Mgpbfwddyq798[address] [place], [place] [address]Dr. Farhat Leal Potassium [Moles/Vol] 3.9 mmol/L Normal 3.5-5.1 [facility] Comment on above: Performed By: #### C MP ####[facility] Pkgnzpmmmh1084[address] [place], [place] [address]Dr. Farhat Leal Protein [Mass/Vol] 5.8 g/dL Critically low 6.4-8.2 Th e [facility] Comment on above: Performed By: #### C MP ####[facility] Pdfclzhyih0587[address] [place], [place] [address]Dr. Farhat Leal Sodium [Moles/Vol] 142 mmol/L Normal 136-[address] [facility] Comment on above: Performed By: #### C MP ####[facility] Sxzzstqxrc0549[address] [place], [place] [address]Dr. Farhat Leal Urea nitrogen [Mass/Vol] 53.0 mg/dL Critically high 7.0-18.0 [facility] Comment on above: Performed By: #### C MP ####[facility] Onayapkytt[address] [place], [place] [address]Dr. Farhat Leal Urea nitrogen/Creatinine [Mass ratio] 36.1 mg/mg Normal [facility] Comment on above: Performed By: #### C MP ####[facility] Uemgnkyzlm5307[address] [place], [place] [address]Dr. Farhat Leal PROTIMEon 05-29-2022 INR Coag (PPP) [Relative time] 2.41 {INR} Normal [facility] Comment on above: Performed By: #### P T ####[facility] Ctquesbnhh3550[address] [place], [place] [address]Dr. Farhat Leal INR GUIDELINES SEE BELOW Normal [facility] Comment on above: Result Comment: MALINA RED INR: 2.0 - 3.0 CONDITIONS NOT LISTED BELOW 2.5 - 3.5 FOR PROSTHETIC HEART VALVE REPLACEMENT 2.5 - 3.5 RECURRENT THROMBOSIS Performed By: #### P T ####[facility] Velhceiwma0938[address] [place], [place] [address]Dr. Farhat Leal PT Coag (PPP) [Time] 24.3 s Critically high 9.0-11.6 [facility] Comment on above: Performed By: #### P T ####[facility] Dfgwcnfhxp3534[address] [place], [place] [address]DrSkylar Leal FK506 (TACROLIMUS) WHOLE BLO ODon 05-25-2022 Tacrolimus (FK506), Blood 5.1 ng/mL Normal 2.0-20.0 [facility] Comment on above: Result Comment: Trou gh (immediately following transplant) 15.0 . Trough (steady state, 2 weeks or more after transplant): 3.0 - 8.0 . Performed by LC-MS/MS technology. Performed By: #### F K506T ####[facility] Ekbrtrpeem229[address] [place], [place] [address]DrSkylar Leal CBC AUTO DIFFon 05-22-2022 BASO # 0.0 103/ul Normal 0.0-0.1 [facility] Comment on above: Performed By: #### C BC ####[facility] Sucyadflly9457[address] [place], [place] [address]DrSkylar Leal Basophils/100 WBC (Bld) 0.5 % Normal 0.2-2.0 [facility] Comment on above: Performed By: #### C BC ####[facility] Jwdhwjdmzk5475[address] [place], [place] [address]DrSkylar Leal EO # 0.2 103/ul Normal 0.0-0.7 [facility] Comment on above: Performed By: #### C BC ####[facility] Kfemegryjz6787[address] [place], [place] [address]Dr. Farhat Leal Eosinophils/100 WBC (Bld) 4.0 % Normal 0.9-7.0 [facility] Comment on above: Performed By: #### C BC ####[facility] Goairclutw4576[address] [place], [place] [address]DrSkylar Leal Erythrocyte distribution width (RBC) [Ratio] 15.5 % Critically high 11.0-15.0 [facility] Comment on above: Performed By: #### C BC ####[facility] Wuvkawrngc209[address] [place], [place] [address]DrSkylar Leal Hematocrit (Bld) [Volume fraction] 34.1 % Critically low 42.0-54.0 [facility] Comment on above: Performed By: #### C BC ####[facility] Swsdqtpjuc35[address] [place] [address]DrSkylar Leal Hemoglobin (Bld) [Mass/Vol] 11.3 g/dL Critically low 14.0-18.0 [facility] Comment on above: Performed By: #### C BC ####[facility] Khnypcslju38[address] [place] [address]DrSkylar Leal IG # 0.03 10e3/ul Normal 0.00-0.03 [facility] Comment on above: Performed By: #### C BC ####[facility] Qeozsesvuz729[address] [place], [place] [address]DrSkylar Leal IG % 0.5 % Normal 0.0-0.5 [facility] Comment on above: Performed By: #### C BC ####[facility] Ledwdofrgp2795[address] [place], [place] [address]DrSkylar Leal LYMPH # 2.1 103/ul Normal 1.2-3.8 [facility] Comment on above: Performed By: #### C BC ####[facility] Dtmqwgkont629[address] [place], [place] [address]DrSkylar Leal Lymphocytes/100 WBC (Bld) 34.6 % Normal 20.5-60.0 [facility] Comment on above: Performed By: #### C BC ####[facility] Cglszkrmyy38[address] [place] [address]DrSkylar Leal MANUAL DIFF REQ NO Normal [facility] Comment on above: Performed By: #### C BC ####[facility] [address]aqghncu4[address] [place] [phone] Leal MCH (RBC) [Entitic mass] 30.3 pg Normal 25.9-34.0 [facility] Comment on above: Performed By: #### C BC ####[facility] Guzyraezdk7624 [place] [address]DrSkylar Leal MCHC (RBC) [Mass/Vol] 33.1 g/dL Normal 29.9-35.2 [facility] Comment on above: Performed By: #### C BC ####[facility] Moyfgbcuho6373 [place] [address]Dr. Farhat Leal MCV (RBC) [Entitic vol] 91.4 fL Normal 80.0-94.0 [facility] Comment on above: Performed By: #### C BC ####[facility] Rckphzdjue5[address] [place] [address]Dr. Farhat Leal MONO # 0.7 103/ul Normal 0.3-0.8 [facility] Comment on above: Performed By: #### C BC ####[facility] Rvqycfixep7776 [place] [address]Dr. Farhat Leal Monocytes/100 WBC (Bld) 11.6 % Normal 1.7-12.0 [facility] Comment on above: Performed By: #### C BC ####[facility] Awiicodflh7244[address] [place], [place] [address]Dr. Farhat Leal NEUT # 2.9 103/ul Normal 1.4-6.5 [facility] Comment on above: Performed By: #### C BC ####[facility] Hxszyhfdpu101[address] [place], [place] [address]Dr. Farhat Elvis Neutrophils/100 WBC (Bld) 48.8 % Normal 43.0-75.0 [facility] Comment on above: Performed By: #### C BC ####[facility] Zsxbvoocvd157[address] [place], [place] [address]Dr. Farhat Elvis Platelet mean volume (Bld) [Entitic vol] 10.9 fL Normal 9.5-13.5 [facility] Comment on above: Performed By: #### C BC ####[facility] Flonineyfy[address] [place], [place] [id number]. Farhat Elvis PLT 186 103/ul Normal 150-450 [facility] Comment on above: Performed By: #### C BC ####[facility] Emmvmbwfee5[address] [place] [phone]. Farhat Leal RBC 3.73 106/ul Critically low 4.70-6.10 [facility] Comment on above: Performed By: #### C BC ####[facility] Gcnopiagmr85[address] [place] [address]Dr. Farhat Leal WBC 6.0 103/ul Normal 4.0-11.0 [facility] Comment on above: Performed By: #### C BC ####[facility] Saomeiphse65[address] [place] [address]Dr. Farhat Leal PROF 14(COMP METB)on 023 Albumin [Mass/Vol] 2.7 g/dL Critically low 3.4-5.0 Th [facility] Comment on above: Performed By: #### C MP ####[facility] Othfcsvtod22[address] [place] [address]Dr. Farhat Leal Albumin/Globulin [Mass ratio] 0.8 {ratio} Normal [facility] Comment on above: Performed By: #### C MP ####[facility] Belshlrixv8[address] [place], [place] [address]Dr. Farhat Leal ALP [Catalytic activity/Vol] 60 U/L Normal 46-116 [facility] Comment on above: Performed By: #### C MP ####[facility] Jgzbqnjalt6835[address] [place], [place] [address]Dr. Farhat Leal ALT [Catalytic activity/Vol] 17 U/L Normal 16-63 [facility] Comment on above: Performed By: #### C MP ####[facility] Hpylcqqcwk2537 [place] [address]Dr. Farhat Leal Anion gap [Moles/Vol] 9.6 mmol/L Normal [facility] Comment on above: Performed By: #### C MP ####[facility] Xvpypyqxrf8860 [place] [address]Dr. Farhat Leal AST [Catalytic activity/Vol] 14 U/L Critically low 15-37 [facility] Comment on above: Performed By: #### C MP ####[facility] Bwbkqkcohb1240 [place] [address]Dr. Farhat Leal Bilirubin [Mass/Vol] 0.5 mg/dL Normal 0.2-1.0 [facility] Comment on above: Performed By: #### C MP ####[facility] Motzfjuwmh77[address] [place] [address]Dr. Farhat Leal Calcium [Mass/Vol] 8.4 mg/dL Critically low 8.5-10.1 Th e [facility] Comment on above: Performed By: #### C MP ####[facility] Albebtqttp80[address] [place] [phone]. Farhat Leal Chloride [Moles/Vol] 104 mmol/L Normal 98-107 [facility] Comment on above: Performed By: #### C MP ####[facility] Dmdyzxpprp9416 [place] [address]Dr. Farhat Leal CO2 [Moles/Vol] 27.2 mmol/L Normal 21.0-32.0 [facility] Comment on above: Performed By: #### C MP ####[facility] Myszvgxgit85[address] [place], [place] [address]Dr. Farhat Leal Creatinine [Mass/Vol] 1.24 mg/dL Normal 0.70-1.30 [facility] Comment on above: Performed By: #### C MP ####[facility] Syawyjjmiw75[address] [place], [place] [address]Dr. Farhat Leal EGFR-AF CYMRO >60 Normal >=60 [facility] Comment on above: Performed By: #### C MP ####[facility] Umshvnjclu3[address] [place] [address]Dr. Farhat Elvis EGFR-NON AF CYMRO 57 mL/min/1.73m2 Critically low >=60 [facility] Comment on above: Performed By: #### C MP ####[facility] Shigbkvtfl90[address] [place] [phone]. Farhat Leal Globulin (S) [Mass/Vol] 3.3 g/dL Normal [facility] Comment on above: Performed By: #### C MP ####[facility] Zscdxfhewo2149 [place] [phone]. Madelynlorri Elvis Glucose [Mass/Vol] 275 mg/dL Critically high 74-106 T [facility] Comment on above: Performed By: #### C MP ####[facility] Fiwbkegceg96[address] [place] [address]Dr. Madelynlorri Elvis Potassium [Moles/Vol] 3.8 mmol/L Normal 3.5-5.1 [facility] Comment on above: Performed By: #### C MP ####[facility] Eaclawijmk6[address] [place] [address]Dr. Farhat Leal Protein [Mass/Vol] 6.0 g/dL Critically low 6.4-8.2 Th [facility] Comment on above: Performed By: #### C MP ####[facility] Efubfapgnm[address] [place], [place] [address]Dr. Farhat Leal Sodium [Moles/Vol] 137 mmol/L Normal 136-[address] [facility] Comment on above: Performed By: #### C MP ####[facility] Yloarhnqbw[address] [place], [place] [address]Dr. Farhat Leal Urea nitrogen [Mass/Vol] 54.0 mg/dL Critically high 7.0-18.0 [facility] Comment on above: Performed By: #### C MP ####[facility] Akdhjneknd37[address] [place], [place] [address]Dr. Farhat Leal Urea nitrogen/Creatinine [Mass ratio] 43.5 mg/mg Normal [facility] Comment on above: Performed By: #### C MP ####[facility] Xsnsmggwif[address] [place], [place] [address]Dr. Farhat Leal PROTIMEon 05-22-2022 INR Coag (PPP) [Relative time] 2.27 {INR} Normal [facility] Comment on above: Performed By: #### P T ####[facility] Mrjquxgwvy9[address] [place], [place] [address]Dr. Farhat Leal INR GUIDELINES SEE BELOW Normal [facility] Comment on above: Result Comment: MALINA RED INR: 2.0 - 3.0 CONDITIONS NOT LISTED BELOW 2.5 - 3.5 FOR PROSTHETIC HEART VALVE REPLACEMENT 2.5 - 3.5 RECURRENT THROMBOSIS Performed By: #### P T ####[facility] Dskonxectb[address] [place], [place] [id number]. Farhat Leal PT Coag (PPP) [Time] 23.0 s Critically high 9.0-11.6 [facility] Comment on above: Performed By: #### P T ####[facility] Yzvywdmfoa[address] [place], [place] [address]Dr. Farhat Leal FK506 (TACROLIMUS) WHOLE BLO ODon 05-19-2022 Tacrolimus (FK506), Blood 7.8 ng/mL Normal 2.0-20.0 [facility] Comment on above: Result Comment: Trou gh (immediately following transplant) 15.0 . Trough (steady state, 2 weeks or more after transplant): 3.0 - 8.0 . Performed by LC-MS/MS technology. Performed By: #### F K506T ####[facility] Iumsvygoai6936[address] [place], [place] [address]Dr. Farhat Leal CBC AUTO DIFFon 05-15-2022 BASO # 0.0 103/ul Normal 0.0-0.1 [facility] Comment on above: Performed By: #### C BC ####[facility] Zshutaykry307[address] [place], [place] [address]Dr. Farhat Leal Basophils/100 WBC (Bld) 0.4 % Normal 0.2-2.0 [facility] Comment on above: Performed By: #### C BC ####[facility] Yrolddfpjz80[address] [place], [place] [address]Dr. Farhat Leal EO # 0.2 103/ul Normal 0.0-0.7 [facility] Comment on above: Performed By: #### C BC ####[facility] Huowhncbfm332[address] [place], [place] [address]Dr. Farhat Leal Eosinophils/100 WBC (Bld) 3.0 % Normal 0.9-7.0 [facility] Comment on above: Performed By: #### C BC ####[facility] Cfxqwyujhh025[address] [place], [place] [address]Dr. Farhat Leal Erythrocyte distribution width (RBC) [Ratio] 15.7 % Critically high 11.0-15.0 [facility] Comment on above: Performed By: #### C BC ####[facility] Mrzmhvapoe9[address] [place] [address]Dr. Farhat Leal Hematocrit (Bld) [Volume fraction] 36.8 % Critically low 42.0-54.0 [facility] Comment on above: Performed By: #### C BC ####[facility] Abikxpctwh6810 [place] [address]Dr. Farhat Leal Hemoglobin (Bld) [Mass/Vol] 12.4 g/dL Critically low 14.0-18.0 [facility] Comment on above: Performed By: #### C BC ####[facility] Rbkxppbqql794[address] [place], [place] [address]Dr. Farhat Leal IG # 0.01 10e3/ul Normal 0.00-0.03 [facility] Comment on above: Performed By: #### C BC ####[facility] Psfazgxmau92[address] [place], [place] [address]Dr. Farhat Leal IG % 0.1 % Normal 0.0-0.5 [facility] Comment on above: Performed By: #### C BC ####[facility] Yleopjiluo086[address] [place], [place] [address]Dr. Farhat Leal LYMPH # 2.4 103/ul Normal 1.2-3.8 [facility] Comment on above: Performed By: #### C BC ####[facility] Ipzvpjwibv[address] [place], [place] [address]Dr. Farhat Leal Lymphocytes/100 WBC (Bld) 35.6 % Normal 20.5-60.0 [facility] Comment on above: Performed By: #### C BC ####[facility] Oioyzyjqoy3346[address] [place], [place] [address]Dr. Farhat Leal MANUAL DIFF REQ NO Normal [facility] Comment on above: Performed By: #### C BC ####[facility] Vjhpnqdnvh6258[address] [place], [place] [address]Dr. Farhat Leal MCH (RBC) [Entitic mass] 30.1 pg Normal 25.9-34.0 [facility] Comment on above: Performed By: #### C BC ####[facility] Qpvmovaqjt6494 [place] [phone]. Farhat Leal MCHC (RBC) [Mass/Vol] 33.7 g/dL Normal 29.9-35.2 [facility] Comment on above: Performed By: #### C BC ####[facility] Pehemnebnz3394 [place] [phone]. Farhat Leal MCV (RBC) [Entitic vol] 89.3 fL Normal 80.0-94.0 [facility] Comment on above: Performed By: #### C BC ####[facility] Jrykgqdhvm1634 [place] [phone]. Farhat Elvis MONO # 0.7 103/ul Normal 0.3-0.8 [facility] Comment on above: Performed By: #### C BC ####[facility] Jkweomhjxp9[address] [place], [place] [address]Dr. Farhat Leal Monocytes/100 WBC (Bld) 10.8 % Normal 1.7-12.0 [facility] Comment on above: Performed By: #### C BC ####[facility] Dhozxhqiiv[address] [place], [place] [id number]. Farhat Leal NEUT # 3.4 103/ul Normal 1.4-6.5 [facility] Comment on above: Performed By: #### C BC ####[facility] Szqgstzdfu94[address] [place], [place] [address]Dr. Farhat Leal Neutrophils/100 WBC (Bld) 50.1 % Normal 43.0-75.0 [facility] Comment on above: Performed By: #### C BC ####[facility] Mkxhdczzln[address] [place], [place] [id number]. Farhat Leal Platelet mean volume (Bld) [Entitic vol] 10.2 fL Normal 9.5-13.5 [facility] Comment on above: Performed By: #### C BC ####[facility] Tnrhnsljnt7064 [place] [phone]. Farhat Leal PLT 190 103/ul Normal 150-450 [facility] Comment on above: Performed By: #### C BC ####[facility] Ewbofqpoux8342 [place] [phone]. Farhat Leal RBC 4.12 106/ul Critically low 4.70-6.10 [facility] Comment on above: Performed By: #### C BC ####[facility] Rpuornonen0383 [place] [phone]. Farhat Leal WBC 6.8 103/ul Normal 4.0-11.0 [facility] Comment on above: Performed By: #### C BC ####[facility] Mtpmjfowjg8472 [place] [address]Dr. Farhat Leal PROF 14(COMP METB)on 023 Albumin [Mass/Vol] 2.8 g/dL Critically low 3.4-5.0 [facility] Comment on above: Performed By: #### C MP ####[facility] Ewitndjawa65[address] [place], [place] [address]Dr. Farhat Leal Albumin/Globulin [Mass ratio] 0.9 {ratio} Normal [facility] Comment on above: Performed By: #### C MP ####[facility] Yzxdwaykcw4589 [place] [address]Dr. Farhat Leal ALP [Catalytic activity/Vol] 66 U/L Normal 46-116 [facility] Comment on above: Performed By: #### C MP ####[facility] Ydkwkypvzu1446 [place] [address]Dr. Farhat Leal ALT [Catalytic activity/Vol] 15 U/L Critically low 16-63 [facility] Comment on above: Performed By: #### C MP ####[facility] Yqerdqcrgm6275 [place] [address]Dr. Farhat Leal Anion gap [Moles/Vol] 11.1 mmol/L Normal [facility] Comment on above: Performed By: #### C MP ####[facility] Dvhdlvfzze1479 [place] [address]Dr. Farhat Leal AST [Catalytic activity/Vol] 14 U/L Critically low 15-37 [facility] Comment on above: Performed By: #### C MP ####[facility] Hcjlmzdzsj4663 [place] [phone]. Farhat Leal Bilirubin [Mass/Vol] 0.8 mg/dL Normal 0.2-1.0 [facility] Comment on above: Performed By: #### C MP ####[facility] Dqnwocffes8380 [place] [phone]. Farhat Leal Calcium [Mass/Vol] 8.9 mg/dL Normal 8.5-10.[address] [facility] Comment on above: Performed By: #### C MP ####[facility] Pqbnlklahk7055 [place] [phone]. Farhat Leal Chloride [Moles/Vol] 101 mmol/L Normal 98-107 [facility] Comment on above: Performed By: #### C MP ####[facility] Xmvabmirdr6377 [place] [phone]. Farhat Leal CO2 [Moles/Vol] 28.2 mmol/L Normal 21.0-32.0 [facility] Comment on above: Performed By: #### C MP ####[facility] Kcjekvnppl8292 [place] [phone]. Farhat Leal Creatinine [Mass/Vol] 1.23 mg/dL Normal 0.70-1.30 [facility] Comment on above: Performed By: #### C MP ####[facility] Ivycfvatbx5574 [place] [phone]. Farhat Leal EGFR-AF CYMRO >60 Normal >=60 [facility] Comment on above: Performed By: #### C MP ####[facility] Turschxjww8935 [place] [phone]. Farhat Leal EGFR-NON AF CYMRO 57 mL/min/1.73m2 Critically low >=60 [facility] Comment on above: Performed By: #### C MP ####[facility] Qorfrgupaa140[address] [place], [place] [address]Dr. Farhat Leal Globulin (S) [Mass/Vol] 3.2 g/dL Normal [facility] Comment on above: Performed By: #### C MP ####[facility] Uznqhonwkw1389 [place] [address]Dr. Farhat Leal Glucose [Mass/Vol] 333 mg/dL Critically high 74-106 T [facility] Comment on above: Performed By: #### C MP ####[facility] Pqqphwgvxb4914 [place] [address]Dr. Farhat Leal Potassium [Moles/Vol] 4.3 mmol/L Normal 3.5-5.1 [facility] Comment on above: Performed By: #### C MP ####[facility] Bmmnzuirqb3276 [place] [address]Dr. Farhat Leal Protein [Mass/Vol] 6.0 g/dL Critically low 6.4-8.2 Th [facility] Comment on above: Performed By: #### C MP ####[facility] Gugmdymupo[address] [place], [place] [address]Dr. Farhat Leal Sodium [Moles/Vol] 136 mmol/L Normal 136-[address] [facility] Comment on above: Performed By: #### C MP ####[facility] Drfcnayxrz1564[address] [place], [place] [address]Dr. Farhat Elvis Urea nitrogen [Mass/Vol] 58.0 mg/dL Critically high 7.0-18.0 [facility] Comment on above: Performed By: #### C MP ####[facility] Bvpbjyhaaq[address] [place], [place] [address]Dr. Farhat Elvis Urea nitrogen/Creatinine [Mass ratio] 47.2 mg/mg Normal [facility] Comment on above: Performed By: #### C MP ####[facility] Nspaxaoaae3175 [place] [address]Dr. Madelynlorri Leal PROTIMEon 05-13-2022 INR Coag (PPP) [Relative time] 3.51 {INR} Normal [facility] Comment on above: Performed By: #### P T ####[facility] Nhtxspipzd4930 [place] [address]Dr. Madelynlorri Elvis INR GUIDELINES SEE BELOW Normal [facility] Comment on above: Result Comment: MALINA RED INR: 2.0 - 3.0 CONDITIONS NOT LISTED BELOW 2.5 - 3.5 FOR PROSTHETIC HEART VALVE REPLACEMENT 2.5 - 3.5 RECURRENT THROMBOSIS Performed By: #### P T ####[facility] Wrqovfukcx9824[address] [place], [place] [address]DrSkylar Leal PT Coag (PPP) [Time] 34.7 s Critically high 9.0-11.6 [facility] Comment on above: Performed By: #### P T ####[facility] Gncwglnwth5960[address] [place], [place] [address]DrSkylar Leal FK506 (TACROLIMUS) WHOLE BLO ODon 05-11-2022 Tacrolimus (FK506), Blood 14.4 ng/mL Normal 2.0-20.0 [facility] Comment on above: Result Comment: Trou gh (immediately following transplant) 15.0 . Trough (steady state, 2 weeks or more after transplant): 3.0 - 8.0 . Performed by LC-MS/MS technology. Performed By: #### F K506T ####[facility] Jmldztnicp5239[address] [place], [place] [address]DrSkylar Leal CBC AUTO DIFFon 05-08-2022 BASO # 0.0 103/ul Normal 0.0-0.1 [facility] Comment on above: Performed By: #### C BC ####[facility] Accxwaorww9455[address] [place], [place] [address]DrSkylar Leal Basophils/100 WBC (Bld) 0.5 % Normal 0.2-2.0 [facility] Comment on above: Performed By: #### C BC ####[facility] Hgadjqoftn4860[address] [place], [place] [address]DrSkylar Leal EO # 0.2 103/ul Normal 0.0-0.7 [facility] Comment on above: Performed By: #### C BC ####[facility] Bmebgoeuum986[address] [place], [place] [address]DrSkylar Leal Eosinophils/100 WBC (Bld) 2.9 % Normal 0.9-7.0 [facility] Comment on above: Performed By: #### C BC ####[facility] Guqbwxhudu1539[address] [place], [place] [address]DrSkylar Leal Erythrocyte distribution width (RBC) [Ratio] 16.0 % Critically high 11.0-15.0 [facility] Comment on above: Performed By: #### C BC ####[facility] Mknrknczvi5321 [place] [address]Dr. Farhat Leal Hematocrit (Bld) [Volume fraction] 35.7 % Critically low 42.0-54.0 [facility] Comment on above: Performed By: #### C BC ####[facility] Nmcvickyzk5252 [place] [address]Dr. Farhat Leal Hemoglobin (Bld) [Mass/Vol] 11.9 g/dL Critically low 14.0-18.0 [facility] Comment on above: Performed By: #### C BC ####[facility] Gbvddnkldl5838[address] [place], [place] [address]Dr. Farhat Leal IG # 0.03 10e3/ul Normal 0.00-0.03 [facility] Comment on above: Performed By: #### C BC ####[facility] Lxrfdndzmn6325[address] [place], [place] [address]Dr. Farhat Leal IG % 0.5 % Normal 0.0-0.5 [facility] Comment on above: Performed By: #### C BC ####[facility] Moldmnnvdt1132[address] [place], [place] [address]Dr. Farhat Leal LYMPH # 2.4 103/ul Normal 1.2-3.8 [facility] Comment on above: Performed By: #### C BC ####[facility] Kxsrznyubs029[address] [place], [place] [address]Dr. Farhat Leal Lymphocytes/100 WBC (Bld) 37.8 % Normal 20.5-60.0 [facility] Comment on above: Performed By: #### C BC ####[facility] Mezfrvpukh8715[address] [place], [place] [address]Dr. Farhat Elvis MANUAL DIFF REQ NO Normal [facility] Comment on above: Performed By: #### C BC ####[facility] Faejjhbxho1059[address] [place], [place] [address]Dr. Farhat Leal MCH (RBC) [Entitic mass] 30.4 pg Normal 25.9-34.0 [facility] Comment on above: Performed By: #### C BC ####[facility] Texyrfxykf0977 [place] [address]DrSkylar Leal MCHC (RBC) [Mass/Vol] 33.3 g/dL Normal 29.9-35.2 [facility] Comment on above: Performed By: #### C BC ####[facility] Qbvraprwbz4477[address] [place], [place] [address]DrSkylar Leal MCV (RBC) [Entitic vol] 91.1 fL Normal 80.0-94.0 [facility] Comment on above: Performed By: #### C BC ####[facility] Oodgqorxhp[address] [place], [place] [address]DrSkylar Leal MONO # 0.7 103/ul Normal 0.3-0.8 [facility] Comment on above: Performed By: #### C BC ####[facility] Ryotnmpasu4256[address] [place], [place] [address]DrSkylar Leal Monocytes/100 WBC (Bld) 11.1 % Normal 1.7-12.0 [facility] Comment on above: Performed By: #### C BC ####[facility] Qtrcaqbtdf347[address] [place], [place] [address]DrSkylar Leal NEUT # 2.9 103/ul Normal 1.4-6.5 [facility] Comment on above: Performed By: #### C BC ####[facility] Oohenrtddq706[address] [place], [place] [address]DrSkylar Leal Neutrophils/100 WBC (Bld) 47.2 % Normal 43.0-75.0 [facility] Comment on above: Performed By: #### C BC ####[facility] Cwrujmhnjc8350[address] [place], [place] [address]DrSkylar Leal Platelet mean volume (Bld) [Entitic vol] 11.0 fL Normal 9.5-13.5 [facility] Comment on above: Performed By: #### C BC ####[facility] Dxemtsjuge4089[address] [place], [place] [address]Dr. Farhat Leal PLT 191 103/ul Normal 150-450 [facility] Comment on above: Performed By: #### C BC ####[facility] Stvoizedkv9039 [place] [address]Dr. Farhat Leal RBC 3.92 106/ul Critically low 4.70-6.10 [facility] Comment on above: Performed By: #### C BC ####[facility] Flchneloxd5529 [place] [address]Dr. Farhat Leal WBC 6.2 103/ul Normal 4.0-11.0 [facility] Comment on above: Performed By: #### C BC ####[facility] Qukrkhmikp0963 [place] [address]Dr. Farhat Leal MAGNESIUMon 05-08-2022 Magnesium [Mass/Vol] 1.9 mg/dL Normal 1.8-2.4 [facility] Comment on above: Performed By: #### P HOS, MG ####[facility] Eynbkukyiw[address] [place], [place] [address]Dr. Farhat Leal PHOSPHORUSon 05-08-2022 Phosphate [Mass/Vol] 4.5 mg/dL Normal 2.6-4.7 [facility] Comment on above: Performed By: #### P HOS, MG ####[facility] Gpyzfeuyte6033 [place] [address]Dr. Farhat Leal PROF 14(COMP METB)on 023 Albumin [Mass/Vol] 2.9 g/dL Critically low 3.4-5.0 [facility] Comment on above: Performed By: #### C MP ####[facility] Emkrwwdvcy1075 [place] [address]Dr. Farhat Leal Albumin/Globulin [Mass ratio] 0.9 {ratio} Normal [facility] Comment on above: Performed By: #### C MP ####[facility] Xvzsocgorh2197 [place] [address]Dr. Farhat Leal ALP [Catalytic activity/Vol] 70 U/L Normal 46-116 [facility] Comment on above: Performed By: #### C MP ####[facility] Wazkrmdqba6757 [place], [place] [address]Gf. Farhat Leal ALT [Catalytic activity/Vol] 13 U/L Critically low 16-63 [facility] Comment on above: Performed By: #### C MP ####[facility] Cxapuabnfl8352 [place], [place] [address]Yi. Farhat Leal Anion gap [Moles/Vol] 14.6 mmol/L Normal Th e [facility] Comment on above: Performed By: #### C MP ####[facility] Ecdnvaanos3005 [place] [phone]. Farhat Leal AST [Catalytic activity/Vol] 17 U/L Normal 15-37 [facility] Comment on above: Performed By: #### C MP ####[facility] Ysgtxzkddz1926 [place] [phone]. Farhat Leal Bilirubin [Mass/Vol] 0.8 mg/dL Normal 0.2-1.0 [facility] Comment on above: Performed By: #### C MP ####[facility] Krqzayuvbf4445 [place] [phone]. Farhat Leal Calcium [Mass/Vol] 8.9 mg/dL Normal 8.5-10.[address] [facility] Comment on above: Performed By: #### C MP ####[facility] Lbojxywtoh4843 [place] [phone]. Farhat Leal Chloride [Moles/Vol] 102 mmol/L Normal 98-107 [facility] Comment on above: Performed By: #### C MP ####[facility] Qturidjqjk6942 [place] [phone]. Farhat Leal CO2 [Moles/Vol] 22.9 mmol/L Normal 21.0-32.0 [facility] Comment on above: Performed By: #### C MP ####[facility] Yhdwlinhci6051 [place] [phone]. Farhat Leal Creatinine [Mass/Vol] 1.20 mg/dL Normal 0.70-1.30 [facility] Comment on above: Performed By: #### C MP ####[facility] Tlouxqsfuj7003 [place] [phone]. Farhat Leal EGFR-AF CYMRO >60 Normal >=60 [facility] Comment on above: Performed By: #### C MP ####[facility] Hioxutgahn2415 [place] [address]Dr. Farhat Leal EGFR-NON AF CYMRO 59 mL/min/1.73m2 Critically low >=60 [facility] Comment on above: Performed By: #### C MP ####[facility] Qfbabpeudl3748 [place] [address]Dr. Farhat Leal Globulin (S) [Mass/Vol] 3.1 g/dL Normal [facility] Comment on above: Performed By: #### C MP ####[facility] Zahwhsddhp8865[address] [place], [place] [address]Dr. Farhat Leal Glucose [Mass/Vol] 447 mg/dL Critically high 74-106 T [facility] Comment on above: Performed By: #### C MP ####[facility] Fdnhxbynqo9669[address] [place], [place] [address]Dr. Farhat Leal Potassium [Moles/Vol] 4.5 mmol/L Normal 3.5-5.1 [facility] Comment on above: Performed By: #### C MP ####[facility] Vlliyhttvq48[address] [place], [place] [address]Dr. Farhat Leal Protein [Mass/Vol] 6.0 g/dL Critically low 6.4-8.2 Th [facility] Comment on above: Performed By: #### C MP ####[facility] Xojzuokwwx854[address] [place], [place] [address]Dr. Farhat Leal Sodium [Moles/Vol] 135 mmol/L Critically low 136-145 Th [facility] Comment on above: Performed By: #### C MP ####[facility] Qrdfxoeyxc8799[address] [place], [place] [address]Dr. Farhat Leal Urea nitrogen [Mass/Vol] 52.0 mg/dL Critically high 7.0-18.0 [facility] Comment on above: Performed By: #### C MP ####[facility] Hlneovsvnc[address] [place] [address]Dr. Farhat Leal Urea nitrogen/Creatinine [Mass ratio] 43.3 mg/mg Normal [facility] Comment on above: Performed By: #### C MP ####[facility] Ibdsffivcm[address] [place], [place] [address]DrSkylar Leal PROTIMEon 05-06-2022 INR Coag (PPP) [Relative time] 2.25 {INR} Normal [facility] Comment on above: Performed By: #### P T ####[facility] Fwgvgtlkeb0775[address] [place], [place] [address]DrSkylar Leal INR GUIDELINES SEE BELOW Normal [facility] Comment on above: Result Comment: MALINA RED INR: 2.0 - 3.0 CONDITIONS NOT LISTED BELOW 2.5 - 3.5 FOR PROSTHETIC HEART VALVE REPLACEMENT 2.5 - 3.5 RECURRENT THROMBOSIS Performed By: #### P T ####[facility] Faibsltzuc0856[address] [place], [place] [address]DrSkylar Leal PT Coag (PPP) [Time] 22.8 s Critically high 9.0-11.6 [facility] Comment on above: Performed By: #### P T ####[facility] Djwezwkjpx37[address] [place], [place] [address]DrSkylar Leal FK506 (TACROLIMUS) WHOLE BLO ODon 05-04-2022 Tacrolimus (FK506), Blood 10.4 ng/mL Normal 2.0-20.0 [facility] Comment on above: Result Comment: Trou gh (immediately following transplant) 15.0 . Trough (steady state, 2 weeks or more after transplant): 3.0 - 8.0 . Performed by LC-MS/MS technology. Performed By: #### F K506T ####[facility] Fyumbxfcpa[address] [place], [place] [address]DrSkylar Leal CBC AUTO DIFFon 05-01-2022 BASO # 0.1 103/ul Normal 0.0-0.1 [facility] Comment on above: Performed By: #### C BC ####[facility] Mklzbzrqnb7737[address] [place], [place] [address]DrSkylar Leal Basophils/100 WBC (Bld) 0.7 % Normal 0.2-2.0 [facility] Comment on above: Performed By: #### C BC ####[facility] Gtfznevjzi9415[address] [place], [place] [address]Dr. Farhat Leal EO # 0.2 103/ul Normal 0.0-0.7 [facility] Comment on above: Performed By: #### C BC ####[facility] Ajcntrsjip189[address] [place], [place] [address]Dr. Farhat Leal Eosinophils/100 WBC (Bld) 3.2 % Normal 0.9-7.0 [facility] Comment on above: Performed By: #### C BC ####[facility] Vexllgwblo6028[address] [place], [place] [address]Dr. Farhat Leal Erythrocyte distribution width (RBC) [Ratio] 16.4 % Critically high 11.0-15.0 [facility] Comment on above: Performed By: #### C BC ####[facility] Hlmjlfcvqj2236[address] [place], [place] [address]Dr. Farhat Leal Hematocrit (Bld) [Volume fraction] 35.1 % Critically low 42.0-54.0 [facility] Comment on above: Performed By: #### C BC ####[facility] Rinkakdnnu6955[address] [place], [place] [address]Dr. Farhat Leal Hemoglobin (Bld) [Mass/Vol] 11.6 g/dL Critically low 14.0-18.0 [facility] Comment on above: Performed By: #### C BC ####[facility] Joobfbduvo0996[address] [place], [place] [address]Dr. Farhat Leal IG # 0.03 10e3/ul Normal 0.00-0.03 [facility] Comment on above: Performed By: #### C BC ####[facility] Pnvgjsbegu5637[address] [place], [place] [address]Dr. Farhat Leal IG % 0.4 % Normal 0.0-0.5 [facility] Comment on above: Performed By: #### C BC ####[facility] Efsxhjxaoc2933[address] [place], [place] [address]DrSkylar Leal LYMPH # 2.4 103/ul Normal 1.2-3.8 [facility] Comment on above: Performed By: #### C BC ####[facility] Appwekepsk6[address] [place] [address]DrSklyar Leal Lymphocytes/100 WBC (Bld) 35.1 % Normal 20.5-60.0 [facility] Comment on above: Performed By: #### C BC ####[facility] Tilmluroag39[address] [place] [address]DrSkylar Leal MANUAL DIFF REQ NO Normal [facility] Comment on above: Performed By: #### C BC ####[facility] Astoznjpqv5439 [place] [address]DrSkylar Leal MCH (RBC) [Entitic mass] 29.4 pg Normal 25.9-34.0 [facility] Comment on above: Performed By: #### C BC ####[facility] Rrvdpjtywk765[address] [place], [place] [address]DrSkylar Leal MCHC (RBC) [Mass/Vol] 33.0 g/dL Normal 29.9-35.2 [facility] Comment on above: Performed By: #### C BC ####[facility] Pjfharkghq4945[address] [place], [place] [address]DrSkylar Leal MCV (RBC) [Entitic vol] 88.9 fL Normal 80.0-94.0 [facility] Comment on above: Performed By: #### C BC ####[facility] Hexjxjdetb786[address] [place], [place] [address]DrSkylar Leal MONO # 0.7 103/ul Normal 0.3-0.8 [facility] Comment on above: Performed By: #### C BC ####[facility] Rloxakdxjc4375[address] [place], [place] [address]DrSkylar Leal Monocytes/100 WBC (Bld) 9.6 % Normal 1.7-12.0 [facility] Comment on above: Performed By: #### C BC ####[facility] Ritygisscb5613[address] [place], [place] [address]DrSkylar Leal NEUT # 3.5 103/ul Normal 1.4-6.5 [facility] Comment on above: Performed By: #### C BC ####[facility] Jtndiebwmw99[address] [place] [address]DrSkylar Leal Neutrophils/100 WBC (Bld) 51.0 % Normal 43.0-75.0 [facility] Comment on above: Performed By: #### C BC ####[facility] Zjakztlicr7476 [place] [address]DrSkylar Leal Platelet mean volume (Bld) [Entitic vol] 10.3 fL Normal 9.5-13.5 [facility] Comment on above: Performed By: #### C BC ####[facility] Hhknstkgjb958[address] [place], [place] [address]DrSkylar Leal PLT 184 103/ul Normal 150-450 [facility] Comment on above: Performed By: #### C BC ####[facility] Hetegpxptd395237 [address] [place], [place] [address]DrSkylar Leal RBC 3.95 106/ul Critically low 4.70-6.10 [facility] Comment on above: Performed By: #### C BC ####[facility] Prlvizhjrg2616[address] [place], [place] [address]DrSkylar Leal WBC 7.0 103/ul Normal 4.0-11.0 [facility] Comment on above: Performed By: #### C BC ####[facility] Mxnrukbrfl5527[address] [place], [place] [address]Dr. Farhat Leal PROF 14(COMP METB)on 023 Albumin [Mass/Vol] 2.6 g/dL Critically low 3.4-5.0 [facility] Comment on above: Performed By: #### C MP ####[facility] Ywxldpirkf0056[address] [place], [place] [address]DrSkylar Leal Albumin/Globulin [Mass ratio] 0.9 {ratio} Normal [facility] Comment on above: Performed By: #### C MP ####[facility] Sbbysegnqt3008[address] [place], [place] [address]DrSkylar Leal ALP [Catalytic activity/Vol] 53 U/L Normal 46-116 [facility] Comment on above: Performed By: #### C MP ####[facility] Bjprdoyltu3041 [place] [address]Dr. Farhat Elvis ALT [Catalytic activity/Vol] 17 U/L Normal 16-63 [facility] Comment on above: Performed By: #### C MP ####[facility] Autuvlxdie1918[address] [place], [place] [address]Dr. Farhat Elvis Anion gap [Moles/Vol] 10.0 mmol/L Normal [facility] Comment on above: Performed By: #### C MP ####[facility] Pwdfnpedjj4460[address] [place], [place] [address]Dr. Farhat Elvis AST [Catalytic activity/Vol] 19 U/L Normal 15-37 [facility] Comment on above: Performed By: #### C MP ####[facility] Azabvgqgmf786[address] [place], [place] [address]Dr. Farhat Elvis Bilirubin [Mass/Vol] 0.5 mg/dL Normal 0.2-1.0 [facility] Comment on above: Performed By: #### C MP ####[facility] Kliyftcbay3574[address] [place], [place] [address]Dr. Farhat Elvis Calcium [Mass/Vol] 8.4 mg/dL Critically low 8.5-10.1 [facility] Comment on above: Performed By: #### C MP ####[facility] Vkzvsikffg5967[address] [place], [place] [address]Dr. Madelynlorri Leal Chloride [Moles/Vol] 108 mmol/L Critically high 98-107 [facility] Comment on above: Performed By: #### C MP ####[facility] Fyeozkcvdb368[address] [place], [place] [address]Dr. Farhat Leal CO2 [Moles/Vol] 26.9 mmol/L Normal 21.0-32.0 [facility] Comment on above: Performed By: #### C MP ####[facility] Vzkfcvanag3308[address] [place], [place] [address]Dr. Madelynlorri Leal Creatinine [Mass/Vol] 1.20 mg/dL Normal 0.70-1.30 [facility] Comment on above: Performed By: #### C MP ####[facility] Qyaketofdf4[address] [place] [address]Dr. Farhat Leal EGFR-AF CYMRO >60 Normal >=60 [facility] Comment on above: Performed By: #### C MP ####[facility] Skraucwble4[address] [place] [phone]. Farhat Elvis EGFR-NON AF CYMRO 59 mL/min/1.73m2 Critically low >=60 [facility] Comment on above: Performed By: #### C MP ####[facility] Jfobwrxazt3274 [place] [address]Dr. Farhat Elvis Globulin (S) [Mass/Vol] 3.0 g/dL Normal [facility] Comment on above: Performed By: #### C MP ####[facility] Ucmtzsvpkq0792 [place] [address]Dr. Farhat Elvis Glucose [Mass/Vol] 213 mg/dL Critically high 74-106 [facility] Comment on above: Performed By: #### C MP ####[facility] Iridpwzzdc7745[address] [place], [place] [address]Dr. Farhat Elvis Potassium [Moles/Vol] 3.9 mmol/L Normal 3.5-5.1 [facility] Comment on above: Performed By: #### C MP ####[facility] Wcjuwogfrz[address] [place] [address]Dr. Farhat Elvis Protein [Mass/Vol] 5.6 g/dL Critically low 6.4-8.2 [facility] Comment on above: Performed By: #### C MP ####[facility] Rymwnvudbn2434 [place] [address]Dr. Farhat Leal Sodium [Moles/Vol] 141 mmol/L Normal 136-[address] [facility] Comment on above: Performed By: #### C MP ####[facility] Wldwaebyjf[address] [place] [address]Dr. Farhat Elvis Urea nitrogen [Mass/Vol] 61.0 mg/dL Critically high 7.0-18.0 [facility] Comment on above: Performed By: #### C MP ####[facility] Tjvzxsuerj05[address] [place], [place] [address]Dr. Farhat Leal Urea nitrogen/Creatinine [Mass ratio] 50.8 mg/mg Normal [facility] Comment on above: Performed By: #### C MP ####[facility] Dkpravglfq89[address] [place], [place] [address]Dr. Farhat Leal FK506 (TACROLIMUS) WHOLE BLO ODon 04-27-2022 Tacrolimus (FK506), Blood 16.5 ng/mL Normal 2.0-20.0 [facility] Comment on above: Result Comment: Trou gh (immediately following transplant) 15.0 . Trough (steady state, 2 weeks or more after transplant): 3.0 - 8.0 . Performed by LC-MS/MS technology. Performed By: #### F K506T ####[facility] Rwbdzcsgzr314[address] [place], [place] [address]Dr. Farhat Leal CBC AUTO DIFFon 04-24-2022 BASO # 0.0 103/ul Normal 0.0-0.1 [facility] Comment on above: Performed By: #### C BC ####[facility] Hiczeaflal3464[address] [place], [place] [address]Dr. Farhat Leal Basophils/100 WBC (Bld) 0.5 % Normal 0.2-2.0 [facility] Comment on above: Performed By: #### C BC ####[facility] Nvrailxatz9074[address] [place], [place] [address]Dr. Farhat Leal EO # 0.2 103/ul Normal 0.0-0.7 [facility] Comment on above: Performed By: #### C BC ####[facility] Mwgtumttgl3157[address] [place], [place] [address]Dr. Farhat Leal Eosinophils/100 WBC (Bld) 3.1 % Normal 0.9-7.0 [facility] Comment on above: Performed By: #### C BC ####[facility] Fncyxkblys3150[address] [place], [place] [address]Dr. Farhat Leal Erythrocyte distribution width (RBC) [Ratio] 16.3 % Critically high 11.0-15.0 [facility] Comment on above: Performed By: #### C BC ####[facility] Awygwglopy9038 [place] [address]Dr. Farhat Leal Hematocrit (Bld) [Volume fraction] 34.0 % Critically low 42.0-54.0 [facility] Comment on above: Performed By: #### C BC ####[facility] Qqguenxakk306[address] [place], [place] [address]Dr. Farhat Leal Hemoglobin (Bld) [Mass/Vol] 11.6 g/dL Critically low 14.0-18.0 [facility] Comment on above: Performed By: #### C BC ####[facility] Jmizaceqmg4567[address] [place], [place] [address]Dr. Farhat Leal IG # 0.02 10e3/ul Normal 0.00-0.03 [facility] Comment on above: Performed By: #### C BC ####[facility] Bdioscvmum478[address] [place], [place] [address]Dr. Madelynlorri Leal IG % 0.4 % Normal 0.0-0.5 [facility] Comment on above: Performed By: #### C BC ####[facility] Emexummvzp5926[address] [place], [place] [address]DrSkylar Farhat Leal LYMPH # 2.2 103/ul Normal 1.2-3.8 [facility] Comment on above: Performed By: #### C BC ####[facility] Ylxubeuhfn507[address] [place], [place] [address]DrSkylar Madelynlorri Leal Lymphocytes/100 WBC (Bld) 38.8 % Normal 20.5-60.0 [facility] Comment on above: Performed By: #### C BC ####[facility] Bwancaolgl3728[address] [place], [place] [address]DrSkylar Madelynlorri Leal MANUAL DIFF REQ NO Normal [facility] Comment on above: Performed By: #### C BC ####[facility] Svprepykip7199[address] [place], [place] [address]DrSkylar Leal MCH (RBC) [Entitic mass] 30.1 pg Normal 25.9-34.0 [facility] Comment on above: Performed By: #### C BC ####[facility] Uxjdtbhvhx4452 [place] [address]DrSkylar Leal MCHC (RBC) [Mass/Vol] 34.1 g/dL Normal 29.9-35.2 [facility] Comment on above: Performed By: #### C BC ####[facility] Ugdfzsrnjf2020[address] [place], [place] [address]DrSkylar Leal MCV (RBC) [Entitic vol] 88.1 fL Normal 80.0-94.0 [facility] Comment on above: Performed By: #### C BC ####[facility] Voypfxhzcq365[address] [place], [place] [address]DrSkylar Leal MONO # 0.6 103/ul Normal 0.3-0.8 [facility] Comment on above: Performed By: #### C BC ####[facility] Duufvothzb308[address] [place], [place] [address]DrSkylar Leal Monocytes/100 WBC (Bld) 10.8 % Normal 1.7-12.0 [facility] Comment on above: Performed By: #### C BC ####[facility] Giofwlogar9186[address] [place], [place] [address]DrSkylar Leal NEUT # 2.6 103/ul Normal 1.4-6.5 [facility] Comment on above: Performed By: #### C BC ####[facility] Ffwzqxxnka8624[address] [place], [place] [address]DrSkylar Leal Neutrophils/100 WBC (Bld) 46.4 % Normal 43.0-75.0 [facility] Comment on above: Performed By: #### C BC ####[facility] Frdtfvihzs7286[address] [place], [place] [address]DrSkylar Leal Platelet mean volume (Bld) [Entitic vol] 10.9 fL Normal 9.5-13.5 [facility] Comment on above: Performed By: #### C BC ####[facility] Umhdsyxakk3086[address] [place], [place] [address]DrSkylar Leal PLT 159 103/ul Normal 150-450 [facility] Comment on above: Performed By: #### C BC ####[facility] Nlzkeplciw2042 [place] [address]Dr. Farhat Leal RBC 3.86 106/ul Critically low 4.70-6.10 [facility] Comment on above: Performed By: #### C BC ####[facility] Bjhiimsdig0879 [place] [address]Dr. Farhat Leal WBC 5.6 103/ul Normal 4.0-11.0 [facility] Comment on above: Performed By: #### C BC ####[facility] Klegtmlvkt6[address] [place] [address]Dr. Farhat Leal PROTIMEon 04-24-2022 INR Coag (PPP) [Relative time] 3.23 {INR} Normal [facility] Comment on above: Performed By: #### P T ####[facility] Wgtjjeafsx9327[address] [place], [place] [address]Dr. Farhat Leal INR GUIDELINES SEE BELOW Normal [facility] Comment on above: Result Comment: MALINA RED INR: 2.0 - 3.0 CONDITIONS NOT LISTED BELOW 2.5 - 3.5 FOR PROSTHETIC HEART VALVE REPLACEMENT 2.5 - 3.5 RECURRENT THROMBOSIS Performed By: #### P T ####[facility] Eegisepbzh27[address] [place] [address]Dr. Farhat Leal PT Coag (PPP) [Time] 32.0 s Critically high 9.0-11.6 [facility] Comment on above: Performed By: #### P T ####[facility] Etczuvvhlk54[address] [place] [address]Dr. Farhat Leal FK506 (TACROLIMUS) WHOLE BLO ODon 04-20-2022 Tacrolimus (FK506), Blood 13.9 ng/mL Normal 2.0-20.0 [facility] Comment on above: Result Comment: Trou gh (immediately following transplant) 15.0 . Trough (steady state, 2 weeks or more after transplant): 3.0 - 8.0 . Performed by LC-MS/MS technology. Performed By: #### F K506T ####[facility] Kfcckprrnk6[address] [place] [phone]. Farhat Leal CBC AUTO DIFFon 04-17-2022 BASO # 0.0 103/ul Normal 0.0-0.1 [facility] Comment on above: Performed By: #### C BC ####[facility] Tmgtvlemqr7026 [place] [address]Dr. Farhat Leal Basophils/100 WBC (Bld) 0.4 % Normal 0.2-2.0 [facility] Comment on above: Performed By: #### C BC ####[facility] Yzgwldoext05[address] [place] [address]Dr. Farhat Leal EO # 0.2 103/ul Normal 0.0-0.7 [facility] Comment on above: Performed By: #### C BC ####[facility] Qejmquwhnv6802 [place] [address]Dr. Farhat Elvis Eosinophils/100 WBC (Bld) 2.8 % Normal 0.9-7.0 [facility] Comment on above: Performed By: #### C BC ####[facility] Vxeorewlpr7049[address] [place], [place] [address]Dr. Farhat Leal Erythrocyte distribution width (RBC) [Ratio] 16.1 % Critically high 11.0-15.0 [facility] Comment on above: Performed By: #### C BC ####[facility] Yedzpdimvb69[address] [place], [place] [address]Dr. Faraht Leal Hematocrit (Bld) [Volume fraction] 35.7 % Critically low 42.0-54.0 [facility] Comment on above: Performed By: #### C BC ####[facility] Yedlcoatnn6432[address] [place], [place] [address]Dr. Farhat Leal Hemoglobin (Bld) [Mass/Vol] 12.2 g/dL Critically low 14.0-18.0 [facility] Comment on above: Performed By: #### C BC ####[facility] Odorepsdfr[address] [place], [place] [address]Dr. Madelynlorri Leal IG # 0.03 10e3/ul Normal 0.00-0.03 [facility] Comment on above: Performed By: #### C BC ####[facility] Lkehmcsgxs[address] [place] [address]Dr. Farhat Leal IG % 0.4 % Normal 0.0-0.5 [facility] Comment on above: Performed By: #### C BC ####[facility] Qbfssuhtkc4278 [place] [address]Dr. Farhat Leal LYMPH # 2.4 103/ul Normal 1.2-3.8 [facility] Comment on above: Performed By: #### C BC ####[facility] Bgjahrznza8295 [place] [address]Dr. Farhat Leal Lymphocytes/100 WBC (Bld) 36.1 % Normal 20.5-60.0 [facility] Comment on above: Performed By: #### C BC ####[facility] Tdyinzufvd2535[address] [place], [place] [address]DrSkylar Leal MANUAL DIFF REQ NO Normal [facility] Comment on above: Performed By: #### C BC ####[facility] Jifapeptmx5794 [place] [phone]. Farhat Leal MCH (RBC) [Entitic mass] 30.3 pg Normal 25.9-34.0 [facility] Comment on above: Performed By: #### C BC ####[facility] Tkpmogqixc6050 [place] [phone]. Farhat Leal MCHC (RBC) [Mass/Vol] 34.2 g/dL Normal 29.9-35.2 [facility] Comment on above: Performed By: #### C BC ####[facility] H[address]cpmji[address] [place], [place] [id number] Leal MCV (RBC) [Entitic vol] 88.6 fL Normal 80.0-94.0 [facility] Comment on above: Performed By: #### C BC ####[facility] Kqewscgtgl2[address] [place], [place] [address]DrSkylar Leal MONO # 0.7 103/ul Normal 0.3-0.8 [facility] Comment on above: Performed By: #### C BC ####[facility] Ypfnxfmloa2387 [place] [phone]. Farhat Leal Monocytes/100 WBC (Bld) 10.1 % Normal 1.7-12.0 [facility] Comment on above: Performed By: #### C BC ####[facility] Bnnzttdnzh7773 [place] [phone]. Farhat Leal NEUT # 3.4 103/ul Normal 1.4-6.5 [facility] Comment on above: Performed By: #### C BC ####[facility] [address] [place] [phone]. Farhat Elvis Neutrophils/100 WBC (Bld) 50.2 % Normal 43.0-75.0 [facility] Comment on above: Performed By: #### C BC ####[facility] Yniqpszefy[address] [place] [phone]. Farhat Elvis Platelet mean volume (Bld) [Entitic vol] 11.8 fL Normal 9.5-13.5 [facility] Comment on above: Performed By: #### C BC ####[facility] Aclnjntzsu74[address] [place] [phone]. Farhat Elvis PLT 193 103/ul Normal 150-450 [facility] Comment on above: Performed By: #### C BC ####[facility] Rsqcvtozta6255 [place] [phone]. Farhat Elvis RBC 4.03 106/ul Critically low 4.70-6.10 [facility] Comment on above: Performed By: #### C BC ####[facility] Qunoupwuxn3[address] [place] [phone]. Farhat Leal WBC 6.8 103/ul Normal 4.0-11.0 [facility] Comment on above: Performed By: #### C BC ####[facility] Upwaoesssz[address] [place] [phone] Leal PROF 14(COMP METB)on 023 Albumin [Mass/Vol] 2.9 g/dL Critically low 3.4-5.0 [facility] Comment on above: Performed By: #### C MP ####[facility] Xtdsuutqhn[address] [place] [address]Dr. Farhat Elvis Albumin/Globulin [Mass ratio] 0.9 {ratio} Normal [facility] Comment on above: Performed By: #### C MP ####[facility] Aaoqjweqxf[address] [place] [address]Dr. Farhat Elvis ALP [Catalytic activity/Vol] 67 U/L Normal 46-116 [facility] Comment on above: Performed By: #### C MP ####[facility] Rfxdnmzmit[address] [place], [place] [address]Dr. Farhat Elvis ALT [Catalytic activity/Vol] 15 U/L Critically low 16-63 [facility] Comment on above: Performed By: #### C MP ####[facility] Ntdkhdbxma[address] [place], [place] [address]Dr. Madelynlorri Elvis Anion gap [Moles/Vol] 10.8 mmol/L Normal [facility] Comment on above: Performed By: #### C MP ####[facility] Zxhkonbmlm[address] [place], [place] [address]Dr. Farhat Elvis AST [Catalytic activity/Vol] 23 U/L Normal 15-37 [facility] Comment on above: Performed By: #### C MP ####[facility] Shrzibys[address] [place], [place] [address]Dr. Farhat Leal Bilirubin [Mass/Vol] 0.6 mg/dL Normal 0.2-1.0 [facility] Comment on above: Performed By: #### C MP ####[facility] Fgtycytump3[address] [place] [address]Dr. Farhat Leal Calcium [Mass/Vol] 8.7 mg/dL Normal 8.5-10.[address] [facility] Comment on above: Performed By: #### C MP ####[facility] Owgnvfnwsa[address] [place], [place] [address]Dr. Farhat Leal Chloride [Moles/Vol] 105 mmol/L Normal 98-107 [facility] Comment on above: Performed By: #### C MP ####[facility] Ewvrjbubzq58[address] [place] [phone]. Farhat Leal CO2 [Moles/Vol] 29.5 mmol/L Normal 21.0-32.0 [facility] Comment on above: Performed By: #### C MP ####[facility] Itostlbokj1268 [place] [phone]. Farhat Leal Creatinine [Mass/Vol] 1.37 mg/dL Critically high 0.70-1.30 [facility] Comment on above: Performed By: #### C MP ####[facility] Pfmlkjzncw6823 [place] [phone]. Farhat Leal EGFR-AF CYMRO >60 Normal >=60 [facility] Comment on above: Performed By: #### C MP ####[facility] Uqnbvvuawh7[address] [place] [address]Dr. Farhat Elvis EGFR-NON AF CYMRO 50 mL/min/1.73m2 Critically low >=60 [facility] Comment on above: Performed By: #### C MP ####[facility] Umixqkbpic[address] [place] [address]Dr. Farhat Leal Globulin (S) [Mass/Vol] 3.1 g/dL Normal [facility] Comment on above: Performed By: #### C MP ####[facility] Pjnfejqwuk[address] [place] [address]Dr. Farhat Leal Glucose [Mass/Vol] 203 mg/dL Critically high 74-106 [facility] Comment on above: Performed By: #### C MP ####[facility] Ziovattsmf25[address] [place] [phone]. Farhat Leal Potassium [Moles/Vol] 4.3 mmol/L Normal 3.5-5.1 [facility] Comment on above: Performed By: #### C MP ####[facility] Zmllegcodc39[address] [place] [address]Dr. Farhat Leal Protein [Mass/Vol] 6.0 g/dL Critically low 6.4-8.2 [facility] Comment on above: Performed By: #### C MP ####[facility] Tfiyutuvog[address] [place] [address]Dr. Farhat Leal Sodium [Moles/Vol] 141 mmol/L Normal 136-[address] [facility] Comment on above: Performed By: #### C MP ####[facility] Josfnoojfj47[address] [place] [phone]. Farhat Leal Urea nitrogen [Mass/Vol] 65.0 mg/dL Critically high 7.0-18.0 [facility] Comment on above: Performed By: #### C MP ####[facility] Stftybiilk[address] [place] [address]Dr. Farhat Leal Urea nitrogen/Creatinine [Mass ratio] 47.4 mg/mg Normal [facility] Comment on above: Performed By: #### C MP ####[facility] Bqjgiqhtbm16[address] [place] [address]Dr. Farhat Leal PROTIMEon 04-15-2022 INR Coag (PPP) [Relative time] 3.88 {INR} Normal [facility] Comment on above: Performed By: #### P T ####[facility] Zypwgkducx[address] [place] [address]Dr. Farhat Leal INR GUIDELINES SEE BELOW Normal [facility] Comment on above: Result Comment: MALINA RED INR: 2.0 - 3.0 CONDITIONS NOT LISTED BELOW 2.5 - 3.5 FOR PROSTHETIC HEART VALVE REPLACEMENT 2.5 - 3.5 RECURRENT THROMBOSIS Performed By: #### P T ####[facility] Wbfjwdjtk[address] [place], [place] [address]Dr. Farhat Leal PT Coag (PPP) [Time] 38.1 s Critically high 9.0-11.6 [facility] Comment on above: Performed By: #### P T ####[facility] Rngipcvnlj[address] [place], [place] [address]Dr. Farhat Leal Glucose Glucometer (BldC) [M ass/Vol]Ordered By: Sadia Aguilar on 04-14-2022 Glucose [Mass/Vol] 162 mg/dL [facility] Comment on above: Random Glucose Refer ence Range is dependent on time and content of last meal. Glucose of more than 200 mg/dL in a nonstressed, ambulatory subject supports the diagnosis of Diabetes Mellitus. Glucose Poct Glucometerson 0 04-14-2022 Commemt1 Glu2: Cleaned Meter Normal [facility] Comment on above: Result Comment: PERF ORMED BY: [facility] [place] [address] PATHOLOGIST VIDEO ENGINEER JOSE F ELLIOTT M.D. Performed By: #### G LULS #### Point of Care testing , Glucose [Mass/Vol] 162 mg/dL Normal [facility] Comment on above: Result Comment: [place] om Glucose Reference Range is dependent on time and content of last meal. Glucose of more than 200 mg/dL in a nonstressed, ambulatory subject supports the diagnosis of Diabetes Mellitus. Performed By: #### G LULS #### Point of Care testing , No Panel InformationOrdered By: Sadia Aguilar on 04-14-2022 Bedside Glucose Comment Glu2: cleaned meter [facility] MAGNESIUMon 04-13-2022 Magnesium [Mass/Vol] 1.7 mg/dL Critically low 1.8-2.4 [facility] Comment on above: Performed By: #### M HENRI Manzo ####[facility] Pq[address]muwmu[address] [place] [address]Dr. Farhat Leal PHOSPHORUSon 04-13-2022 Phosphate [Mass/Vol] 4.8 mg/dL Critically high 2.6-4.7 [facility] Comment on above: Performed By: #### M HENRI Manzo ####[facility] [address]jft[address] [place] [address]Dr. Farhat Leal PROTIMEon 04-13-2022 INR Coag (PPP) [Relative time] 3.16 {INR} Normal [facility] Comment on above: Performed By: #### P T ####[facility] Wofwpglybe[address] [place] [address]Dr. Farhat Leal INR GUIDELINES SEE BELOW Normal [facility] Comment on above: Result Comment: MALINA RED INR: 2.0 - 3.0 CONDITIONS NOT LISTED BELOW 2.5 - 3.5 FOR PROSTHETIC HEART VALVE REPLACEMENT 2.5 - 3.5 RECURRENT THROMBOSIS Performed By: #### P T ####[facility] Oeltqa[address]xh[address] [place] [address]Dr. Farhat Leal PT Coag (PPP) [Time] 31.4 s Critically high 9.0-11.6 [facility] Comment on above: Performed By: #### P T ####[facility] Cxq[address]gzeqq[address] [place] [address]Dr. Farhat Leal MAGNESIUMon 03-11-2022 Magnesium [Mass/Vol] 1.6 mg/dL Critically low 1.8-2.4 [facility] Comment on above: Performed By: #### M Anais, HENRI ####[facility] [address]axchmsnb[address] [place] [address]Dr. Farhat Leal PHOSPHORUSon 03-11-2022 Phosphate [Mass/Vol] 5.3 mg/dL Critically high 2.6-4.7 [facility] Comment on above: Performed By: #### M Anais, HENRI ####[facility] Whemincckq[address] [place], [place] [address]Dr. 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 Magic Cup Leonard with lunch aspirin, enteric coated (ASPIRIN, ENTERIC COATED) 81 mg EC tablet Take 1 tablet by (more content not included)... Normal [facility] PROTIMEon 02-25-2022 INR Coag (PPP) [Relative time] 1.31 {INR} Normal [facility] Comment on above: Performed By: #### P T ####[facility] S[address] [place] [address]DrSkylar Leal INR GUIDELINES SEE BELOW Normal [facility] Comment on above: Result Comment: MALINA RED INR: 2.0 - 3.0 CONDITIONS NOT LISTED BELOW 2.5 - 3.5 FOR PROSTHETIC HEART VALVE REPLACEMENT 2.5 - 3.5 RECURRENT THROMBOSIS Performed By: #### P T ####[facility] [address]ulf[address] [place] [address]DrSkylar Leal PT Coag (PPP) [Time] 13.7 s Critically high 9.0-11.6 [facility] Comment on above: Performed By: #### P T ####[facility] Dtzjekhven[address] [place] [address]DrSkylar Leal CNPNon 02-19-2022 CNPN Telephone (TXCTGL) ALEX ALMONTE ([id number]) 1945 M TRN Date Time Provider Department [...] by mouth daily with lunch. 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 DIABETES UNCOMPL ADULT-UNCONTRLLED [[id number]] 02/24/2002 KIDNEY TRANSPLANT STATUS [Z94.0] 09/07/2003 PROPHYLACTIC IMMUNOTHERAPY [Z29.8] 07/30/2006 CUSTODIAL STEROIDS [RZP6267] 07/30/2006 VITAMIN D DEFICIENCY NOS [E55.9] 09/07/2008 [...] diabetes mellitus with diabetic peripher*11/29/2021 Atherosclerosis of [place] artery of extremity w*11/29/2021 Malnutrition of moderate degree (HCC) [E44.0] 12/01/2021 Dermatitis associated with moisture [L30.8] 12/04/2021 Encounter Status:Closed by AUGUSTA MEDRANO on 02/19/22 [facility] Sonya 02-18-2022 CNPN Telephone (PODCCP) ALEX ALMONTE ([id number]) 1945 M [facility] Date Time Provider Department 02/18/22 DEVON MOREIRA PODCCP During your visit today, we recorded the following information about you: Yumiko Camelia 02/18/2022 3:16 PM Signed Reason for call: Mr. Almonte would like to request a sooner appointment with Dr. Peterson than 04/13/2022. Contact Name (if not the patient) Alex's nurse Home and cell number(Ask for Alex's nurse) [phone] Diagnosis 4 mo f/u wound check Best [...] by mouth daily with lunch. 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 DIABETES UNCOMPL ADULT-UNCONTRLLED [[id number]] 02/24/2002 KIDNEY TRANSPLANT STATUS [Z94.0] 09/07/2003 PROPHYLACTIC IMMUNOTHERAPY [Z29.8] 07/30/2006 CUSTODIAL STEROIDS [[id number]] 07/30/2006 VITAMIN D DEFICIENCY NOS [E55.9] 09/07/2008 [...] diabetes mellitus with diabetic peripher*11/29/2021 Atherosclerosis of [place] artery of extremity w*11/29/2021 Malnutrition of moderate degree (HCC) [E44.0] 12/01/2021 Dermatitis associated with moisture [L30.8] 12/04/2021 Encounter Status:Closed by CHEASTY (more content not included)... Normal [facility] CNOVon 02-05-2022 CNOV Office Visit (TXCTGL ) ALEX ALMONTE ([id number]) 1945 M TRN Date Time Provider Department 02/05/22 8:20 AM KIDNEY TXP CLINIC TXCTGL During your visit today, we recorded the following information about you: Temperature Pulse Blood pressure 96.7 degrees 79/minute 72/42 Asia Pike MD 02/05/2022 9:38 AM Signed [facility] [place] Transplant Follow up Portions of this note [...] and snacks patient declined. Indra scale at [facility]: 166.2 lbs per patient. Bed sore on coccyx causing discomfort. Being changed regularly at [facility]- reported to be smaller around but still as deep. Patient not very up to date with medications. Patient brought paperwork from [facility] with all medications being received. Patient unsure if they have been drawing labs regularly. Last Tac from 01/19: 12.9 and K 5.9. In need of current labs. Lab orders will be sent with patient and follows as below: [facility] Transplant Standing [facility] [address] [facility] [address] [place], [place] [address] February 05, 2022 Alex Almonte 1945 [id number] STANDARD TESTING: Diagnosis Codes: Z94.0 Kidney Transplant [...] AT YOUR LABORATORY FACILITY AND FAX TO [phone]. PLEASE CALL [phone]. Provider: Dr. Pike Current Outpatient Medications Medication [...] included)... Normal [facility] PROTEIN CREATININE RATIOon 1 04-08-2021 Protein/Creatinine (U) [Mass ratio] 0.10 mg/mg <0.15 mg/mg [facility] PROTIMEon 02-05-2022 INR Coag (PPP) [Relative time] 2.90 {INR} Normal [facility] Comment on above: Performed By: #### P T ####[facility] [address]rvv[address] [place] [address]Dr. Farhat Leal INR GUIDELINES SEE BELOW Normal [facility] Comment on above: Result Comment: MALINA RED INR: 2.0 - 3.0 CONDITIONS NOT LISTED BELOW 2.5 - 3.5 FOR PROSTHETIC HEART VALVE REPLACEMENT 2.5 - 3.5 RECURRENT THROMBOSIS Performed By: #### P T ####[facility] Bh[address]mtvxhx[address] [place] [phone]. Farhat Leal PT Coag (PPP) [Time] 29.2 s Critically high 9.0-11.6 [facility] Comment on above: Performed By: #### P T ####[facility] Yv[address] [place] [address]Dr. Farhat Leal Prot/Creat Uron 02-05-2022 Protein/Creatinine (U) [Mass ratio] 0.10 mg/mg Normal <0.15 [facility] Comment on above: Order Comment: Speci men Type: URINE SPECIMENOrdering Facility: [facility] Address: [address] [place] [address] Result Comment: Adul t Proteinuria Categories: <0.15 mg/mg is considered normal to mildly increased 0.15 - 0.50 mg/mg is considered moderately increased >0.50 mg/mg is considered severely increased KDIGO. (2013). KDIGO 2012 Clinical Practice Guideline for the Evaluation and Management of Chronic Kidney Disease. Official Journal of the International Society of Nephrology, 3(1), 1-150. Performed By: #### 2 890-2 ####[facility] LABCLIA [id number] [address] STATES OF [facility] Protein/Creatinine (U) [Mass ratio]on 02-05-2022 Creatinine (U) [Mass/Vol] 86.9 mg/dL 20.0 - 300.0 mg/dL [facility] Protein (U) [Mass/Vol] 9 mg/dL 0 - 20 mg/dL [facility] Creatinine (U) [Mass/Vol] 86.9 mg/dL Normal 20.0-300.0 [facility] Comment on above: Order Comment: Speci men Type: URINE SPECIMENOrdering Facility: [facility] Address: [address] Performed By: #### 2 890-2 ####[facility] LABCLIA [id number] [place] [address] [place] Protein (U) [Mass/Vol] 9 mg/dL Normal 0-20 [facility] Comment on above: Order Comment: Speci men Type: URINE SPECIMENOrdering Facility: [facility] Address: [address] Performed By: #### 2 890-2 ####[facility] LABCLIA [id number] [place] [address] [place] URINALYSIS, DIPSTICK ONLYon 02-05-2022 Bilirubin Ql (U) Negative Normal Negative [facility] Comment on above: Order Comment: Speci men Type: URINE SPECIMEN [facility] Address: [address] Performed By: #### U A #### [facility] LAB CLIA [id number] [facility] [place] [address] [place] Clarity (Unsp spec) Clear Normal [facility] Comment on above: Order Comment: Speci men Type: URINE SPECIMEN [facility] Address: [address] Performed By: #### U A #### [facility] CLIA [id number] [address] [place] [address] [place] Color (U) Yellow Normal Yellow [facility] Comment on above: Order Comment: Speci men Type: URINE SPECIMEN [facility] Address: [address] Performed By: #### U A #### [facility] CLIA [id number] [address] [place] [address] [place] Glucose Test strip (U) [Mass/Vol] 3+ Abnormal Trace, Negative [facility] Comment on above: Order Comment: Speci men Type: URINE SPECIMEN [facility] Address: [address] [place] [address] Performed By: #### U A #### [facility] CLIA [id number] [address] [place] [address] [place] Hemoglobin Ql (U) Negative Normal Negative, Trace [facility] Comment on above: Order Comment: Speci men Type: URINE SPECIMEN [facility] Address: [address] [place] [address] Performed By: #### U A #### [facility] CLIA [id number] [address] [place] Ketones Ql (U) Trace Normal Negative, Trace [facility] Comment on above: Order Comment: Speci men Type: URINE SPECIMEN [facility] Address: [address] [place] [address] Performed By: #### U A #### [facility] CLIA [id number] [address] [place] [address] [place] Leukocyte esterase Test strip Ql (U) Negative Normal Negative, 25 [place]/mL [facility] Comment on above: Order Comment: Speci men Type: URINE SPECIMEN [facility] Address: [address] [place] [address] Performed By: #### U A #### [facility] CLIA [id number] [address] [place] [address] [place] Nitrite Ql (U) Negative Normal Negative [facility] Comment on above: Order Comment: Speci men Type: URINE SPECIMEN [facility] Address: [address] [place] [address] Performed By: #### U A #### [facility] CLIA [id number] [facility] [place] [address] [place] pH (U) 5.5 [pH] Normal 5.0-8.0 [facility] Comment on above: Order Comment: Speci men Type: URINE SPECIMEN [facility] Address: [address] [place] [address] Performed By: #### U A #### [facility] CLIA [id number] [address] [place] [address] [place] Protein (U) [Mass/Vol] Negative Normal Trace , Negative [facility] Comment on above: Order Comment: Speci men Type: URINE SPECIMEN [facility] Address: [address] [place] [address] Performed By: #### U A #### [facility] [place] [id number] [address] [place] [address] [place] Specific gravity (U) [Rel density] 1.014 Normal 1.005-1.030 [facility] Comment on above: Order Comment: Speci men Type: URINE SPECIMEN [facility] Address: [address] [place] [address] Performed By: #### U A #### [facility] [place] [id number] [address] [place] [address] [place] Urobilinogen Ql (U) 1+ Abnormal Negative [facility] Comment on above: Order Comment: Speci men Type: URINE SPECIMEN [facility] Address: [address] [place] [address] Performed By: #### U A #### [facility] [place] [id number] [address] [place] [address] [place] Bilirubin Ql (U) Negative Negative [facility] Clarity (Unsp spec) Clear Clear [facility] Color (U) Yellow Yellow [facility] Glucose Test strip (U) [Mass/Vol] 3+ Abnormal Trace, Negative [facility] Hemoglobin Ql (U) Negative Negative, Trace [facility] Ketones Ql (U) Trace Negative, Trace [facility] Leukocyte esterase Test strip Ql (U) Negative Negative, 25 Loraine/mL [facility] Nitrite Ql (U) Negative Negative [facility] pH (U) 5.5 [pH] 5.0 - 8.0 [facility] Protein (U) [Mass/Vol] Negative Trace , Negative [facility] Specific gravity (U) [Rel density] 1.014 1.005 - 1.030 [facility] Urobilinogen Ql (U) 1+ Abnormal Negative [facility] FK506 (TACROLIMUS) WHOLE BLO ODon 01-29-2022 Tacrolimus (FK506), Blood 11.1 ng/mL Normal 2.0-20.0 [facility] Comment on above: Result Comment: Trou gh (immediately following transplant) 15.0 . Trough (steady state, 2 weeks or more after transplant): 3.0 - 8.0 . Performed by LC-MS/MS technology. Performed By: #### F K506T ####[facility] Dfyspsyfhy[address] [place], [place] [address]Dr. Farhat Leal PHOSPHORUSon 01-26-2022 Phosphate [Mass/Vol] 4.1 mg/dL Normal 2.6-4.7 [facility] Comment on above: Performed By: #### C CARA PHOS ####[facility] Lcrkxxbrbs4824[address] [place], [place] [address]DrSkylar Leal PROF 14(COMP METB)on 022 Albumin [Mass/Vol] 2.1 g/dL Critically low 3.4-5.0 [facility] Comment on above: Performed By: #### C CARA, PHOS ####[facility] Xtyycqxjlh450[address] [place], [place] [address]Dr. Farhat Leal Albumin/Globulin [Mass ratio] 0.6 {ratio} Normal [facility] Comment on above: Performed By: #### C CARA, PHOS ####[facility] Fhdpglffym212[address] [place], [place] [address]Dr. Farhat Leal ALP [Catalytic activity/Vol] 89 U/L Normal 46-116 [facility] Comment on above: Performed By: #### C CARA, PHOS ####[facility] Mizgryhlge044[address] [place], [place] [address]Dr. Farhat Elvis ALT [Catalytic activity/Vol] 27 U/L Normal 16-63 [facility] Comment on above: Performed By: #### C CARA, PHOS ####[facility] Mvqjtdbrby62[address] [place], [place] [address]Dr. Madelynlorri Elvis Anion gap [Moles/Vol] 12.3 mmol/L Normal [facility] Comment on above: Performed By: #### C CARA, PHOS ####[facility] Ukvmrxstnh9450[address] [place], [place] [address]Dr. Farhat Leal AST [Catalytic activity/Vol] 53 U/L Critically high 15-37 [facility] Comment on above: Performed By: #### C CARA, PHOS ####[facility] Zfmfeodcqc017[address] [place], [place] [address]Dr. Farhat Leal Bilirubin [Mass/Vol] 0.6 mg/dL Normal 0.2-1.0 [facility] Comment on above: Performed By: #### C CARA, PHOS ####[facility] Uvbhgqikkx6949[address] [place], [place] [address]Dr. Farhat Leal Calcium [Mass/Vol] 8.0 mg/dL Critically low 8.5-10.1 [facility] Comment on above: Performed By: #### C CARA, PHOS ####[facility] Yodikjchko8066[address] [place], [place] [address]Dr. Farhat Leal Chloride [Moles/Vol] 97 mmol/L Critically low 98-107 [facility] Comment on above: Performed By: #### C CARA, PHOS ####[facility] Akmgicjdmu6527[address] [place], [place] [address]Dr. Farhat Leal CO2 [Moles/Vol] 26.6 mmol/L Normal 21.0-32.0 [facility] Comment on above: Performed By: #### C CARA, PHOS ####[facility] Yhyekxkrrk2865[address] [place], [place] [address]Dr. Farhat Leal Creatinine [Mass/Vol] 1.03 mg/dL Normal 0.70-1.30 [facility] Comment on above: Performed By: #### C CARA, PHOS ####[facility] Eq[address]iyyxmn[address] [place] [address]Dr. Farhat Leal EGFR-AF CYMRO >60 Normal >=60 [facility] Comment on above: Performed By: #### C CARA, PHOS ####[facility] Cfnklhtvof7[address] [place], [place] [address]Dr. Farhat Leal EGFR-NON AF CYMRO >60 Normal >=60 [facility] Comment on above: Performed By: #### C CARA, PHOS ####[facility] Wjdarwypno1969[address] [place], [place] [address]Dr. Farhat Leal Globulin (S) [Mass/Vol] 3.7 g/dL Normal [facility] Comment on above: Performed By: #### C CARA, PHOS ####[facility] Scaraqbqep4429[address] [place], [place] [address]Dr. Farhat Leal Glucose [Mass/Vol] 287 mg/dL Critically high 74-106 T [facility] Comment on above: Performed By: #### C CARA, PHOS ####[facility] Faaerwkekb2464[address] [place], [place] [address]Dr. Farhat Leal Potassium [Moles/Vol] 3.9 mmol/L Normal 3.5-5.1 [facility] Comment on above: Performed By: #### C CARA, PHOS ####[facility] Vdzbltrgak0140[address] [place], [place] [address]Dr. Farhat Leal Protein [Mass/Vol] 5.8 g/dL Critically low 6.4-8.2 [facility] Comment on above: Performed By: #### C CARA, PHOS ####[facility] Ktgdpglsin6016[address] [place], [place] [address]Dr. Farhat Leal Sodium [Moles/Vol] 132 mmol/L Critically low 136-145 [facility] Comment on above: Performed By: #### C CARA, PHOS ####[facility] Pprbv[address] [place] [phone]. Farhat Leal Urea nitrogen [Mass/Vol] 23.0 mg/dL Critically high 7.0-18.0 [facility] Comment on above: Performed By: #### C HENRI MARROQUIN ####[facility] Yrxvruzxjn360[address] [place] [phone]. Farhat Leal Urea nitrogen/Creatinine [Mass ratio] 22.3 mg/mg Normal [facility] Comment on above: Performed By: #### C HENRI MARROQUIN ####[facility] Evplfothhi[address] [place] [phone]. Farhat Leal FK506 (TACROLIMUS) WHOLE BLO ODon 01-21-2022 Tacrolimus (FK506), Blood 12.2 ng/mL Normal 2.0-20.0 [facility] Comment on above: Result Comment: Trou gh (immediately following transplant) 15.0 . Trough (steady state, 2 weeks or more after transplant): 3.0 - 8.0 . Performed by LC-MS/MS technology. Performed By: #### F K506T ####[facility] Wzmlbosxlq3524 [place] [phone]. Farhat Leal ACID FAST SMEAR AND CXon Acid Fast Culture Negative Normal [facility] Comment on above: Result Comment: No a abdiel fast bacilli isolated after 6 weeks. Performed By: #### A FB ####[facility] Bpfhrzayzg35[address] [place] [phone]. Farhat Leal Acid Fast Smear Negative Normal [facility] Comment on above: Performed By: #### A FB ####[facility] Sq[address]vgw[address] [place], [place] [id number]. Farhat [employer] Specimen Processing Tissue Grinding Normal [facility] Comment on above: Performed By: #### A FB ####[facility] Daturopgmq95[address] [place], [place] [id number]. Farhat Hassan 01-20-2022 CNPN Telephone ([employer]) ALEX ALMONTE ([id number]) 1945 M TRN Date Time Provider Department [...] by mouth daily with lunch. 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 Atherosclerosis of [place] artery of extremity w*11/29/2021 Malnutrition of moderate degree (HCC) [E44.0] 12/01/2021 Dermatitis associated with moisture [L30.8] 12/04/2021 Encounter Status:Closed by VAN OLIVAREZ on 01/20/22 Normal [facility] PROF 14(COMP METB)on 022 Albumin [Mass/Vol] 1.9 g/dL Critically low 3.4-5.0 [facility] Comment on above: Performed By: #### C MP ####[facility] Othudretnd[address] [place] [phone] Leal Albumin/Globulin [Mass ratio] 0.5 {ratio} Normal [facility] Comment on above: Performed By: #### C MP ####[facility] Cutrmzpdpk[address] [place] [address]DrSkylar Leal ALP [Catalytic activity/Vol] 78 U/L Normal 46-116 [facility] Comment on above: Performed By: #### C MP ####[facility] Kvopzsaxaj70[address] [place] [phone]. Frahat Elvis ALT [Catalytic activity/Vol] 22 U/L Normal 16-63 [facility] Comment on above: Performed By: #### C MP ####[facility] Rjazpnoaxm92[address] [place] [address]Dr. Farhat Leal Anion gap [Moles/Vol] 8.0 mmol/L Normal [facility] Comment on above: Performed By: #### C MP ####[facility] Eabuljgqbf6166[address] [place], [place] [address]Dr. Farhat Elvis AST [Catalytic activity/Vol] 92 U/L Critically high 15-37 [facility] Comment on above: Performed By: #### C MP ####[facility] Gfwqrdvfzp9617[address] [place], [place] [address]Dr. Farhat Elvis Bilirubin [Mass/Vol] 0.7 mg/dL Normal 0.2-1.0 [facility] Comment on above: Performed By: #### C MP ####[facility] Xqukwniaku[address] [place], [place] [address]Dr. Farhat Elvis Calcium [Mass/Vol] 7.8 mg/dL Critically low 8.5-10.1 Th e [facility] Comment on above: Performed By: #### C MP ####[facility] Ckvhwhoieq6136[address] [place], [place] [address]Dr. Farhat Leal Chloride [Moles/Vol] 99 mmol/L Normal 98-107 [facility] Comment on above: Performed By: #### C MP ####[facility] Ccxwjrrjik335[address] [place], [place] [address]Dr. Farhat Elvis CO2 [Moles/Vol] 30.9 mmol/L Normal 21.0-32.0 [facility] Comment on above: Performed By: #### C MP ####[facility] Srxllrrfip8020[address] [place], [place] [address]Dr. Farhat Elvis Creatinine [Mass/Vol] 0.95 mg/dL Normal 0.70-1.30 [facility] Comment on above: Performed By: #### C MP ####[facility] Pdrqtynusd25[address] [place], [place] [address]Dr. Farhat Leal EGFR-AF CYMRO >60 Normal >=60 [facility] Comment on above: Performed By: #### C MP ####[facility] Ealoidtbtn67[address] [place] [address]Dr. Farhat Leal EGFR-NON AF CYMRO >60 Normal >=60 [facility] Comment on above: Performed By: #### C MP ####[facility] Lckpchzwso4992 [place] [address]Dr. Farhat Leal Globulin (S) [Mass/Vol] 3.9 g/dL Normal [facility] Comment on above: Performed By: #### C MP ####[facility] Coaejxiuku0587[address] [place], [place] [address]Dr. Farhat Leal Glucose [Mass/Vol] 124 mg/dL Critically high 74-106 T [facility] Comment on above: Performed By: #### C MP ####[facility] Wllmguhpsv974[address] [place], [place] [address]Dr. Farhat Leal Potassium [Moles/Vol] 5.9 mmol/L Critically high 3.5-5.1 [facility] Comment on above: Performed By: #### C MP ####[facility] Mbgjebcfap99[address] [place], [place] [address]Dr. Farhat Leal Protein [Mass/Vol] 5.8 g/dL Critically low 6.4-8.2 [facility] Comment on above: Performed By: #### C MP ####[facility] Meejfvvfgn[address] [place], [place] [address]Dr. Farhat Leal Sodium [Moles/Vol] 132 mmol/L Critically low 136-145 Th [facility] Comment on above: Performed By: #### C MP ####[facility] Qmxtnnbyji[address] [place], [place] [address]Dr. Farhat Leal Urea nitrogen [Mass/Vol] 18.0 mg/dL Normal 7.0-18.0 [facility] Comment on above: Performed By: #### C MP ####[facility] Vjcbyudikd3554[address] [place], [place] [address]Dr. Farhat Leal Urea nitrogen/Creatinine [Mass ratio] 18.9 mg/mg Normal [facility] Comment on above: Performed By: #### C MP ####[facility] Llesvmhyvv6032 [place] [address]Dr. Farhat Leal INR (POC)on 01-12-2022 INR Coag (PPP) [Relative time] 2.6 {INR} High 0.8 - 1.2 [facility] Internal Quality Check Acceptable Cl [facility] ACID FAST SMEAR AND CXon Acid Fast Culture Negative Normal [facility] Comment on above: Result Comment: No a abdiel fast bacilli isolated after 6 weeks. Performed By: #### A FB ####[facility] Nicseremdc350[address] [place], [place] [address]Dr. Farhat Leal Acid Fast Smear Negative Normal [facility] Comment on above: Performed By: #### A FB ####[facility] Ubksiyvcde5596[address] [place], [place] [address]Dr. Farhat [employer] Specimen Processing Direct Inoculation Normal [facility] Comment on above: Performed By: #### A FB ####[facility] Dwsphpuqvw439[address] [place], [place] [address]Dr. Farhat Leal ACID FAST SMEAR AND CXon Acid Fast Culture Negative Normal [facility] Comment on above: Result Comment: No a abdiel fast bacilli isolated after 6 weeks. Performed By: #### A FB ####[facility] Teyvxsdcmm360[address] [place], [place] [address]Dr. Farhat Leal Acid Fast Smear Negative Normal [facility] Comment on above: Performed By: #### A FB ####[facility] Edspavmxgq098[address] [place], [place] [address]Dr. Farhat [employer]al [employer] Specimen Processing Tissue Grinding Normal [facility] Comment on above: Performed By: #### A FB ####[facility] Nnnxpknfdj5526[address] [place], [place] [address]Dr. Farhat Leal FUNGAL CULTUREon 01-02-2022 Fungus (Mycology) Culture Final report Normal [facility] Comment on above: Performed By: #### C XFUN ####[facility] Qjttchzhju[address] [place], [place] [id number]. Farhat Leal Fungus Stain Final report Normal [facility] Comment on above: Performed By: #### C XFUN ####[facility] Xbxdvlxcxj7611[address] [place], [place] [address]Dr. Farhat Leal Result 1 Comment Normal [facility] Comment on above: Result Comment: ANNI/ Calcofluor preparation: no fungus observed. Performed By: #### C XFUN ####[facility] Uaffuwsajy46[address] [place], [place] [address]Dr. Farhat Leal Result Comment: No y east or mold isolated after 4 weeks. FK506 (TACROLIMUS) WHOLE BLO ODon 12-31-2021 Tacrolimus (FK506), Blood 7.7 ng/mL Normal 2.0-20.0 [facility] Comment on above: Result Comment: Trou gh (immediately following transplant) 15.0 . Trough (steady state, 2 weeks or more after transplant): 3.0 - 8.0 . Performed by LC-MS/MS technology. Performed By: #### F K506T ####[facility] Ckakpfnbsn[address] [place], [place] [address]Dr. Farhat Leal HEMOGRAM AND PLATELon 2021 Hematocrit (Bld) [Volume fraction] 27.1 % Critically low 42.0-54.0 [facility] Comment on above: Performed By: #### H H ####[facility] Bhicrciazm[address] [place], [place] [address]Dr. Farhat Leal Hemoglobin (Bld) [Mass/Vol] 8.7 g/dL Critically low 14.0-18.0 [facility] Comment on above: Performed By: #### H H ####[facility] Kkiwwgqiay694[address] [place], [place] [address]Dr. Farhat Leal MCH (RBC) [Entitic mass] 30.3 pg Normal 25.9-34.0 [facility] Comment on above: Performed By: #### H H ####[facility] Pckoguidzj67[address] [place], [place] [address]Dr. Farhat Leal MCHC (RBC) [Mass/Vol] 32.1 g/dL Normal 29.9-35.2 [facility] Comment on above: Performed By: #### H H ####[facility] Qofwizqrjv4[address] [place] [phone] Farhat Elvis MCV (RBC) [Entitic vol] 94.4 fL Critically high 80.0-94.0 [facility] Comment on above: Performed By: #### H H ####[facility] Mwthzaaopz6[address] [place] [phone]. Farhat Leal PLT 355 103/ul Normal 150-450 [facility] Comment on above: Performed By: #### H H ####[facility] Gjblcqmggj4083 [place] [phone]. Farhat Leal RBC 2.87 106/ul Critically low 4.70-6.10 [facility] Comment on above: Performed By: #### H H ####[facility] Wsmquqytqo7232 [place] [address]DrSkylar Leal WBC 6.0 103/ul Normal 4.0-11.0 [facility] Comment on above: Performed By: #### H H ####[facility] Isvagboirb8[address] [place] [phone] Leal PHOSPHORUSon 12-29-2021 Phosphate [Mass/Vol] 2.5 mg/dL Critically low 2.6-4.7 [facility] Comment on above: Performed By: #### P HOS, CMP ####[facility] Jnpcqzdgwx6[address] [place] [phone] Leal PROF 14(COMP METB)on 022 Albumin [Mass/Vol] 1.7 g/dL Critically low 3.4-5.0 [facility] Comment on above: Performed By: #### P HOS, CMP ####[facility] Ijyfnfhfbg[address] [place], [place] [address]DrSkylar Leal Albumin/Globulin [Mass ratio] 0.5 {ratio} Normal [facility] Comment on above: Performed By: #### P HOS, CMP ####[facility] Etmdlbzyjo3805 [place] [phone] Leal ALP [Catalytic activity/Vol] 78 U/L Normal 46-116 [facility] Comment on above: Performed By: #### P HOS, CMP ####[facility] Slmypwjrhr[address] [place] [address]Dr. Farhat Leal ALT [Catalytic activity/Vol] 12 U/L Critically low 16-63 [facility] Comment on above: Performed By: #### P HOS, CMP ####[facility] Qrghymjzoz34[address] [place] [address]Dr. Madelynlorri Leal Anion gap [Moles/Vol] 5.1 mmol/L Normal [facility] Comment on above: Performed By: #### P HOS, CMP ####[facility] Rxcnidirgy377[address] [place], [place] [address]Dr. Madelynlorri Leal AST [Catalytic activity/Vol] 22 U/L Normal 15-37 [facility] Comment on above: Performed By: #### P HOS, CMP ####[facility] Biezwlialx9[address] [place], [place] [address]Dr. Farhat Leal Bilirubin [Mass/Vol] 0.6 mg/dL Normal 0.2-1.0 [facility] Comment on above: Performed By: #### P HOS, CMP ####[facility] Lnghglzcre23[address] [place], [place] [address]Dr. Farhat Leal Calcium [Mass/Vol] 8.1 mg/dL Critically low 8.5-10.1 [facility] Comment on above: Performed By: #### P HOS, CMP ####[facility] Mxxclgghid112[address] [place], [place] [address]Dr. Farhat Leal Chloride [Moles/Vol] 100 mmol/L Normal 98-107 [facility] Comment on above: Performed By: #### P HOS, CMP ####[facility] Dgfqvzrvwi450[address] [place], [place] [address]Dr. Farhat Leal CO2 [Moles/Vol] 34.2 mmol/L Critically high 21.0-32.0 [facility] Comment on above: Performed By: #### P HOS, CMP ####[facility] Yhomarxvxr35[address] [place], [place] [address]Dr. Farhat Elvis Creatinine [Mass/Vol] 0.92 mg/dL Normal 0.70-1.30 [facility] Comment on above: Performed By: #### P HOS, CMP ####[facility] Txbmwbtpsv[address] [place] [address]Dr. Farhat Leal EGFR-AF CYMRO >60 Normal >=60 [facility] Comment on above: Performed By: #### P HOS, CMP ####[facility] Shrhljfxbe8780 [place] [address]Dr. Farhat Elvis EGFR-NON AF CYMRO >60 Normal >=60 [facility] Comment on above: Performed By: #### P HOS, CMP ####[facility] Skakzzjuip36[address] [place], [place] [address]Dr. Farhat Leal Globulin (S) [Mass/Vol] 3.3 g/dL Normal [facility] Comment on above: Performed By: #### P HOS, CMP ####[facility] Reokuhywzg100[address] [place], [place] [address]Dr. Madelynlorri Elvis Glucose [Mass/Vol] 116 mg/dL Critically high 74-106 [facility] Comment on above: Performed By: #### P HOS, CMP ####[facility] Rgtxffvmkn5640[address] [place], [place] [address]Dr. Farhat Leal Potassium [Moles/Vol] 3.3 mmol/L Critically low 3.5-5.1 [facility] Comment on above: Performed By: #### P HOS, CMP ####[facility] Uyeutkiibz[address] [place] [address]Dr. Farhat Leal Protein [Mass/Vol] 5.0 g/dL Critically low 6.4-8.2 Th [facility] Comment on above: Performed By: #### P HOS, CMP ####[facility] Sdodiywrlg85[address] [place] [address]Dr. Farhat Leal Sodium [Moles/Vol] 136 mmol/L Normal 136-[address] [facility] Comment on above: Performed By: #### P HOS, CMP ####[facility] Imglyxufpn[address] [place], [place] [address]Dr. Farhat Leal Urea nitrogen [Mass/Vol] 14.0 mg/dL Normal 7.0-18.0 [facility] Comment on above: Performed By: #### P HOS, CMP ####[facility] Iiyivngenh3442 [place] [address]Dr. Farhat Leal Urea nitrogen/Creatinine [Mass ratio] 15.2 mg/mg Normal [facility] Comment on above: Performed By: #### P HOS, CMP ####[facility] Jxnqoosquv[address] [place], [place] [address]Dr. Farhat Leal PROTIMEon 12-29-2021 INR Coag (PPP) [Relative time] 1.26 {INR} Normal [facility] Comment on above: Performed By: #### P T ####[facility] Upjucepxjg[address] [place], [place] [address]Dr. Farhat Leal INR GUIDELINES SEE BELOW Normal [facility] Comment on above: Result Comment: MALINA RED INR: 2.0 - 3.0 CONDITIONS NOT LISTED BELOW 2.5 - 3.5 FOR PROSTHETIC HEART VALVE REPLACEMENT 2.5 - 3.5 RECURRENT THROMBOSIS Performed By: #### P T ####[facility] Bjfgjvvahc878[address] [place], [place] [address]Dr. Farhat Leal PT Coag (PPP) [Time] 13.4 s Critically high 9.0-11.6 [facility] Comment on above: Performed By: #### P T ####[facility] Daffmqqaxb[address] [place], [place] [address]Dr. Farhat Leal XR MODIFIED BARIUM SWALLOWon 12-25-2021 XR MODIFIED BARIUM SWALLOW Normal [facility] FUNGAL CULTUREon 12-24-2021 Fungus (Mycology) Culture Final report Normal [facility] Comment on above: Performed By: #### C XFUN ####[facility] Ictkjvlwyn175[address] [place], [place] [address]Dr. Farhat Leal Fungus Stain Final report Normal [facility] Comment on above: Performed By: #### C XFUN ####[facility] Pplasfzeol01[address] [place], [place] [address]DrSkylar Leal Result 1 Comment Normal [facility] Comment on above: Result Comment: ANNI/ Calcofluor preparation: no fungus observed. Performed By: #### C XFUN ####[facility] Jxwrduwrvr16[address] [place], [place] [address]Dr. Madelynlorri Leal Result Comment: No y east or mold isolated after 4 weeks. VANCOMYCIN TROUGHon 12-21-19 VANCOMYCIN TROUGH 14.4 ug/ml Normal 5.0-20.0 [facility] Comment on above: Performed By: #### V ANCT ####[facility] Dqvoysszfp9[address] [place], [place] [address]Dr. Madelynlorri Leal CBC AUTO DIFFon 12-14-2021 BASO # 0.0 103/ul Normal 0.0-0.1 [facility] Comment on above: Performed By: #### C BC ####[facility] Vlvleefawa[address] [place], [place] [address]Dr. Farhat Leal Basophils/100 WBC (Bld) 0.2 % Normal 0.2-2.0 [facility] Comment on above: Performed By: #### C BC ####[facility] Guvgbuyqew308[address] [place], [place] [address]Dr. Farhat Leal EO # 0.2 103/ul Normal 0.0-0.7 [facility] Comment on above: Performed By: #### C BC ####[facility] Axwkjrymks[address] [place], [place] [address]Dr. Farhat Leal Eosinophils/100 WBC (Bld) 2.1 % Normal 0.9-7.0 [facility] Comment on above: Performed By: #### C BC ####[facility] Dofqpmhjxc[address] [place], [place] [address]Dr. Farhat Leal Erythrocyte distribution width (RBC) [Ratio] 18.2 % Critically high 11.0-15.0 [facility] Comment on above: Performed By: #### C BC ####[facility] Jkcfkqiiac51[address] [place], [place] [address]Dr. Farhat Leal Hematocrit (Bld) [Volume fraction] 25.8 % Critically low 42.0-54.0 [facility] Comment on above: Performed By: #### C BC ####[facility] Curnnfe[address] [place] [phone]. Farhat Leal Hemoglobin (Bld) [Mass/Vol] 8.0 g/dL Critically low 14.0-18.0 [facility] Comment on above: Performed By: #### C BC ####[facility] Fgxwwngneu6536 [place] [phone]. Farhat Leal IG # 0.08 10e3/ul Critically high 0.00-0.03 [facility] Comment on above: Performed By: #### C BC ####[facility] Bvjwqqaubh35[address] [place] [phone]. Farhat Leal IG % 0.7 % Critically high 0.0-0.5 [facility] Comment on above: Performed By: #### C BC ####[facility] Zwdsdzdhti24[address] [place] [address]Dr. Farhat Leal LYMPH # 0.9 103/ul Critically low 1.2-3.8 [facility] Comment on above: Performed By: #### C BC ####[facility] Wetirbqmsp9854 [place] [phone]. Farhat Leal Lymphocytes/100 WBC (Bld) 8.7 % Critically low 20.5-60.0 [facility] Comment on above: Performed By: #### C BC ####[facility] Qdtcyvtfgj6235 [place] [address]Dr. Farhat Leal MANUAL DIFF REQ NO Normal [facility] Comment on above: Performed By: #### C BC ####[facility] Hlcvrwtslu0881 [place] [phone]. Farhat Leal MCH (RBC) [Entitic mass] 30.0 pg Normal 25.9-34.0 [facility] Comment on above: Performed By: #### C BC ####[facility] Hzyhhqzjzk0691 [place] [phone]. Farhat Leal MCHC (RBC) [Mass/Vol] 31.0 g/dL Normal 29.9-35.2 [facility] Comment on above: Performed By: #### C BC ####[facility] Bfujcmcdni9213 [place] [phone]. Farhat Leal MCV (RBC) [Entitic vol] 96.6 fL Critically high 80.0-94.0 [facility] Comment on above: Performed By: #### C BC ####[facility] Hviwaugdez3903 [place] [phone]. Farhat Leal MONO # 0.7 103/ul Normal 0.3-0.8 [facility] Comment on above: Performed By: #### C BC ####[facility] Vtkuimqrhd7849 [place] [phone]. Farhat Elvis Monocytes/100 WBC (Bld) 6.7 % Normal 1.7-12.0 [facility] Comment on above: Performed By: #### C BC ####[facility] Ujuhpsalfa73[address] [place], [place] [address]Dr. Farhat Leal NEUT # 8.8 103/ul Critically high 1.4-6.5 [facility] Comment on above: Performed By: #### C BC ####[facility] Arepixwclq[address] [place], [place] [id number]. Farhat Leal Neutrophils/100 WBC (Bld) 81.6 % Critically high 43.0-75.0 [facility] Comment on above: Performed By: #### C BC ####[facility] Yrrzoljtmq[address] [place], [place] [id number]. Farhat Elvis Platelet mean volume (Bld) [Entitic vol] 10.5 fL Normal 9.5-13.5 [facility] Comment on above: Performed By: #### C BC ####[facility] Ghdscxunfd66[address] [place], [place] [address]Dr. Farhat Elvis PLT 285 103/ul Normal 150-450 [facility] Comment on above: Performed By: #### C BC ####[facility] Qladdhijze7787 [place] [phone]. Farhat Leal RBC 2.67 106/ul Critically low 4.70-6.10 [facility] Comment on above: Performed By: #### C BC ####[facility] Xfogjatjkx3409 [place] [phone]. Madelynlorri Elvis WBC 10.7 103/ul Normal 4.0-11.0 [facility] Comment on above: Performed By: #### C BC ####[facility] Bepmuxejzg8511 [place] [address]Dr. Farhat Leal PROF CHEM 8 (BAS METB)on Anion gap [Moles/Vol] 12.4 mmol/L Normal [facility] Comment on above: Performed By: #### B MP ####[facility] Msgbxzrlng199[address] [place], [place] [address]Dr. Farhat Leal Calcium [Mass/Vol] 7.8 mg/dL Critically low 8.5-10.1 [facility] Comment on above: Performed By: #### B MP ####[facility] Qyywwvbpmt2080[address] [place], [place] [address]Dr. Farhat Leal Chloride [Moles/Vol] 102 mmol/L Normal 98-107 [facility] Comment on above: Performed By: #### B MP ####[facility] Jngkvfluiw2369[address] [place], [place] [address]Dr. Farhat Leal CO2 [Moles/Vol] 28.1 mmol/L Normal 21.0-32.0 [facility] Comment on above: Performed By: #### B MP ####[facility] Rrfvsiuzuh8535[address] [place], [place] [address]Dr. Farhat Leal Creatinine [Mass/Vol] 1.24 mg/dL Normal 0.70-1.30 [facility] Comment on above: Performed By: #### B MP ####[facility] Ipknragktq[address] [place], [place] [address]Dr. Farhat Leal EGFR-AF CYMRO >60 Normal >=60 [facility] Comment on above: Performed By: #### B MP ####[facility] Yxqauhmudd1839[address] [place], [place] [address]Dr. Farhat Leal EGFR-NON AF CYMRO 57 mL/min/1.73m2 Critically low >=60 [facility] Comment on above: Performed By: #### B MP ####[facility] Ukrfgknhja3887 [place] [address]Dr. Farhat Leal Glucose [Mass/Vol] 296 mg/dL Critically high 74-106 [facility] Comment on above: Performed By: #### B MP ####[facility] Wkblfzgdxh2235 [place] [address]Dr. Farhat Leal Potassium [Moles/Vol] 3.5 mmol/L Normal 3.5-5.1 [facility] Comment on above: Performed By: #### B MP ####[facility] Yanldszsgm3647 [place] [address]Dr. Farhat Leal Sodium [Moles/Vol] 139 mmol/L Normal 136-[address] [facility] Comment on above: Performed By: #### B MP ####[facility] Tgphaissii9685 [place] [address]Dr. Farhat Leal Urea nitrogen [Mass/Vol] 27.0 mg/dL Critically high 7.0-18.0 [facility] Comment on above: Performed By: #### B MP ####[facility] Zxoxoguyeb9[address] [place], [place] [address]Dr. Farhat Leal Urea nitrogen/Creatinine [Mass ratio] 21.8 mg/mg Normal [facility] Comment on above: Performed By: #### B MP ####[facility] Ldwzedumpo9[address] [place], [place] [address]Dr. Farhat Leal PROTIMEon 12-14-2021 INR Coag (PPP) [Relative time] 3.36 {INR} Normal [facility] Comment on above: Performed By: #### P T ####[facility] Urwsxrrchg[address] [place], [place] [address]Dr. Farhat Leal INR GUIDELINES SEE BELOW Normal [facility] Comment on above: Result Comment: MALINA RED INR: 2.0 - 3.0 CONDITIONS NOT LISTED BELOW 2.5 - 3.5 FOR PROSTHETIC HEART VALVE REPLACEMENT 2.5 - 3.5 RECURRENT THROMBOSIS Performed By: #### P T ####[facility] Uwsjfolqop8[address] [place], [place] [address]Dr. Farhat Leal PT Coag (PPP) [Time] 33.5 s Critically high 9.0-11.6 [facility] Comment on above: Performed By: #### P T ####[facility] Steejzhcuv[address] [place] [address]Dr. Farhat Elvis XR CHEST 1 Von 12-14-2021 XR CHEST 1 V Normal [facility] No Panel Informationon 12-01 BLANK _ [facility] Implant Date 04/22/2012 [facility] CHECKon AMS Duration (ms) 5 of 8 [facility] AMS Fallback Rate (bpm) DDIR [facility] AV Delay Adaptive Paced Minimum (ms) 300 ms [facility] AV Delay Adaptive Rate Maximum (bpm) 130 {beats}/min [facility] AV Delay Adaptive Rate Minimum (bpm) 70 {beats}/min [facility] AV Delay Adaptive Sensed Minimum (ms) 300 ms [facility] AV Delay Paced (ms) 300 ms [facility] AV Delay Sensed (ms) 300 ms [facility] Jaciel LV Pacing Polarity Unknown [facility] Jaciel LV Sensing Polarity Unknown [facility] Jaciel RA Pacing Amplitude (volts) 2.4 V [facility] Jaciel RA Pacing Polarity BI [facility] Jaciel RA Pacing Pulse Width (ms) 0.4 ms [facility] Jaciel RA Sensing Amplitude (mvolts) AUTO [facility] Jaciel RA Sensing Blanking Period (ms) 56 ms [facility] Jaciel RA Sensing Polarity BI [facility] Jaciel RA Sensing Refractory Period (ms) AUTO [facility] Jaciel RV Pacing Amplitude (volts) 3.4 V [facility] Jaciel RV Pacing Polarity BI [facility] Jaciel RV Pacing Pulse Width (ms) 0.4 ms [facility] Jaciel RV Sensing Amplitude (mvolts) AUTO [facility] Jaciel RV Sensing Blanking Period (ms) 30 ms [facility] Jaciel RV Sensing Polarity BI [facility] Jaciel RV Sensing Refractory Period (ms) 250 ms [facility] Hysteresis Rate (bpm) 60 {beats}/min [facility] Lead1 Mfg SUZETTE [facility] Lead2 Mfg SUZETTE [facility] Location RA [facility] Location RV [facility] Lower Rate (bpm) 60 {beats}/min [facility] Max Sensor Rate (bmp) 130 {beats}/min [facility] Model 831257 Monika cortes [facility] Model 117305 [facility] Model 224836 [facility] Pacemaker Dependent? [facility] PM-Device Mfg BIO [facility] PM-PMT Intervention ON [facility] PM-PVC Intervention ON [facility] PM-Rate Modulation Acceleration Reaction 4 s [facility] PM-Rate Modulation Deceleration 0.5 m [facility] PM-Rate Modulation Towns 23 [facility] PM-Rate Modulation Threshold Medium [facility] RA Bipolar Impedance ohms 448 ohm [facility] Rhythm AF with controlled ventricular rate. [facility] RV Bipolar Impedance ohms 390 ohm [facility] Serial Number [id number] [facility] Serial Number [id number] [facility] Serial Number [id number] [facility] Thresh RA Sensing Amplitude (mvolts) 2.4 mV [facility] Thresh RV Capture Amplitude (volts) 1.8 V [facility] Thresh RV Capture Duration (ms) 0.4 ms [facility] Thresh RV Sensing Amplitude (mvolts) 2.4 mV [facility] Tracking Rate (bpm) 160 {beats}/min [facility] BNPon 11-28-2021 Natriuretic peptide B (Bld) [Mass/Vol] 63691.0 pg/mL Critically high <=1,800.0 [facility] Comment on above: Performed By: #### C MP, BNP, CRP ####[facility] Xpkiqebwdn[address] [place], [place] [address]Dr. Farhat Leal CBC AUTO DIFFon 11-28-2021 BASO # 0.0 103/ul Normal 0.0-0.1 [facility] Comment on above: Performed By: #### C BC ####[facility] Wvznghrtbm26[address] [place] [address]Dr. Farhat Leal Basophils/100 WBC (Bld) 0.3 % Normal 0.2-2.0 [facility] Comment on above: Performed By: #### C BC ####[facility] Pzhagqwlps[address] [place], [place] [address]Dr. Farhat Leal EO # 0.1 103/ul Normal 0.0-0.7 [facility] Comment on above: Performed By: #### C BC ####[facility] Gykoihdfga9207 [place] [phone]. Farhat Leal Eosinophils/100 WBC (Bld) 1.0 % Normal 0.9-7.0 [facility] Comment on above: Performed By: #### C BC ####[facility] Jjnivpfzlu4[address] [place] [address]Dr. Farhat Leal Erythrocyte distribution width (RBC) [Ratio] 14.0 % Normal 11.0-15.0 [facility] Comment on above: Performed By: #### C BC ####[facility] Fdffayogxj[address] [place], [place] [id number]. Farhat Leal Hematocrit (Bld) [Volume fraction] 27.6 % Critically low 42.0-54.0 [facility] Comment on above: Performed By: #### C BC ####[facility] Wyxswnaley04[address] [place], [place] [address]Dr. Farhat Leal Hemoglobin (Bld) [Mass/Vol] 9.0 g/dL Critically low 14.0-18.0 [facility] Comment on above: Performed By: #### C BC ####[facility] Crlepfpsoo01[address] [place] [address]Dr. Farhat Leal IG # 0.12 10e3/ul Critically high 0.00-0.03 [facility] Comment on above: Performed By: #### C BC ####[facility] Xkosdufxtv1835 [place] [address]Dr. Farhat Leal IG % 1.0 % Critically high 0.0-0.5 [facility] Comment on above: Performed By: #### C BC ####[facility] Wgnzjkepoz5084 [place] [phone]. Farhat Leal LYMPH # 1.2 103/ul Normal 1.2-3.8 [facility] Comment on above: Performed By: #### C BC ####[facility] Xraqkswfee[address] [place], [place] [address]Dr. Farhat Leal Lymphocytes/100 WBC (Bld) 9.9 % Critically low 20.5-60.0 [facility] Comment on above: Performed By: #### C BC ####[facility] Grvnynpngu7755 [place] [phone]. Farhat Leal MANUAL DIFF REQ NO Normal [facility] Comment on above: Performed By: #### C BC ####[facility] Axfblxltbp8548 [place] [phone]. Farhat Leal MCH (RBC) [Entitic mass] 30.0 pg Normal 25.9-34.0 [facility] Comment on above: Performed By: #### C BC ####[facility] Arcqunifrb[address] [place], [place] [id number]. Farhat Leal MCHC (RBC) [Mass/Vol] 32.6 g/dL Normal 29.9-35.2 [facility] Comment on above: Performed By: #### C BC ####[facility] Weugohagbc[address] [place], [place] [address]Dr. Farhat Leal MCV (RBC) [Entitic vol] 92.0 fL Normal 80.0-94.0 [facility] Comment on above: Performed By: #### C BC ####[facility] Kvmsmxlrll0[address] [place], [place] [address]Dr. Farhat Elvis MONO # 1.1 103/ul Critically high 0.3-0.8 [facility] Comment on above: Performed By: #### C BC ####[facility] Gbogxjavgu[address] [place], [place] [address]Dr. Farhat Leal Monocytes/100 WBC (Bld) 9.3 % Normal 1.7-12.0 [facility] Comment on above: Performed By: #### C BC ####[facility] Aiqvjgdjoc9588 [place] [phone]. Madelynlorri Leal NEUT # 9.3 103/ul Critically high 1.4-6.5 [facility] Comment on above: Performed By: #### C BC ####[facility] Yhlvedjdlb24[address] [place], [place] [address]Dr. Farhat Leal Neutrophils/100 WBC (Bld) 78.5 % Critically high 43.0-75.0 [facility] Comment on above: Performed By: #### C BC ####[facility] Jbefrtpazh0659 [place] [phone]. Farhat Leal Platelet mean volume (Bld) [Entitic vol] 9.6 fL Normal 9.5-13.5 [facility] Comment on above: Performed By: #### C BC ####[facility] Prxjngjrfh3[address] [place] [phone]. Farhat Leal PLT 357 103/ul Normal 150-450 [facility] Comment on above: Performed By: #### C BC ####[facility] Kznstckbbi2801 [place] [phone]. Farhat Leal RBC 3.00 106/ul Critically low 4.70-6.10 [facility] Comment on above: Performed By: #### C BC ####[facility] Kkuzngphgj[address] [place], [place] [address]Dr. Farhat Leal WBC 11.8 103/ul Critically high 4.0-11.0 [facility] Comment on above: Performed By: #### C BC ####[facility] Qlvmroyuyv8905 [place] [phone]. Farhat Elvis CRPon 11-28-2021 CRP 20.9 mg/dL Critically high <=1.0 [facility] Comment on above: Performed By: #### C MP, BNP, CRP ####[facility] Jjmpgtwzle9410 [place] [phone]. Farhat Leal CULTURE OTHERon 11-28-2021 CULTURE OTHER Normal [facility] Comment on above: Performed By: #### O THCX ####[facility] Cmwmitcnyl4[address] [place] [address]Dr. Farhat Leal CULTURE OTHER Normal [facility] Comment on above: Performed By: #### O THCX ####[facility] Anjqceogok98[address] [place], [place] [address]Dr. Farhat Leal PROF 14(COMP METB)on 022 Albumin [Mass/Vol] 1.4 g/dL Critically low 3.4-5.0 [facility] Comment on above: Performed By: #### C MP, BNP, CRP ####[facility] Iootoquxde6301 [place] [address]Dr. Farhat Leal Albumin/Globulin [Mass ratio] 0.4 {ratio} Normal [facility] Comment on above: Performed By: #### C MP, BNP, CRP ####[facility] Whanwftyin52[address] [place] [address]Dr. Farhat Leal ALP [Catalytic activity/Vol] 82 U/L Normal 46-116 [facility] Comment on above: Performed By: #### C MP, BNP, CRP ####[facility] Vodthqogoh5626 [place] [address]Dr. Farhat Leal ALT [Catalytic activity/Vol] 20 U/L Normal 16-63 [facility] Comment on above: Performed By: #### C MP, BNP, CRP ####[facility] Mpmlqnzpqj7459 [place] [address]Dr. Farhat Leal Anion gap [Moles/Vol] 13.0 mmol/L Normal [facility] Comment on above: Performed By: #### C MP, BNP, CRP ####[facility] Saebkzlpqc6[address] [place], [place] [address]Dr. Farhat Leal AST [Catalytic activity/Vol] 33 U/L Normal 15-37 [facility] Comment on above: Performed By: #### C MP, BNP, CRP ####[facility] Hryhrvbwrv1950 [place] [address]Dr. Farhat Leal Bilirubin [Mass/Vol] 0.7 mg/dL Normal 0.2-1.0 [facility] Comment on above: Performed By: #### C MP, BNP, CRP ####[facility] Khisgqzwep1495 [place] [address]Dr. Farhat Leal Calcium [Mass/Vol] 8.4 mg/dL Critically low 8.5-10.1 [facility] Comment on above: Performed By: #### C MP, BNP, CRP ####[facility] Rborlmrbnw4196 [place] [address]Dr. Farhat Leal Chloride [Moles/Vol] 100 mmol/L Normal 98-107 [facility] Comment on above: Performed By: #### C MP, BNP, CRP ####[facility] Uulmuvvizg0664 [place] [address]Dr. Farhat Leal CO2 [Moles/Vol] 23.7 mmol/L Normal 21.0-32.0 [facility] Comment on above: Performed By: #### C MP, BNP, CRP ####[facility] Yuakylphhl1634 [place] [address]Dr. Farhat Leal Creatinine [Mass/Vol] 1.70 mg/dL Critically high 0.70-1.30 [facility] Comment on above: Performed By: #### C MP, BNP, CRP ####[facility] H[address]wfsvkni[address] [place], [place] [address]Dr. Farhat Leal EGFR-AF CYMRO 48 mL/min/1.73m2 Critically low >=60 [facility] Comment on above: Performed By: #### C MP, BNP, CRP ####[facility] Qiooxbiipo[address] [place], [place] [address]Dr. Farhat Leal EGFR-NON AF CYMRO 39 mL/min/1.73m2 Critically low >=60 [facility] Comment on above: Performed By: #### C MP, BNP, CRP ####[facility] Kbifvtfjxv5[address] [place] [phone]. Farhat Leal Globulin (S) [Mass/Vol] 3.6 g/dL Normal [facility] Comment on above: Performed By: #### C MP, BNP, CRP ####[facility] Rutyozmvev04[address] [place] [address]Dr. Farhat Leal Glucose [Mass/Vol] 232 mg/dL Critically high 74-106 [facility] Comment on above: Performed By: #### C MP, BNP, CRP ####[facility] Jvwoysuevw[address] [place], [place] [address]Dr. Farhat Leal Potassium [Moles/Vol] 3.7 mmol/L Normal 3.5-5.1 [facility] Comment on above: Performed By: #### C MP, BNP, CRP ####[facility] Gcjebmapcs0152 [place] [address]Dr. Farhat Leal Protein [Mass/Vol] 5.0 g/dL Critically low 6.4-8.2 [facility] Comment on above: Performed By: #### C MP, BNP, CRP ####[facility] Mvjekbxlav0132 [place] [address]Dr. Farhat Leal Sodium [Moles/Vol] 133 mmol/L Critically low 136-145 [facility] Comment on above: Performed By: #### C MP, BNP, CRP ####[facility] Summnsfvxx53[address] [place] [address]Dr. Farhat Leal Urea nitrogen [Mass/Vol] 52.0 mg/dL Critically high 7.0-18.0 [facility] Comment on above: Performed By: #### C MP, BNP, CRP ####[facility] Zzdzgdugar2[address] [place], [place] [address]Dr. Farhat Leal Urea nitrogen/Creatinine [Mass ratio] 30.6 mg/mg Normal [facility] Comment on above: Performed By: #### C MP, BNP, CRP ####[facility] Stbuksrynv2734[address] [place], [place] [address]Dr. Farhat Leal PROTIMEon 11-28-2021 INR Coag (PPP) [Relative time] 1.29 {INR} Normal [facility] Comment on above: Performed By: #### P T ####[facility] Kqobsdyuqd[address] [place], [place] [address]Dr. Farhat Leal INR GUIDELINES SEE BELOW Normal [facility] Comment on above: Result Comment: MALINA RED INR: 2.0 - 3.0 CONDITIONS NOT LISTED BELOW 2.5 - 3.5 FOR PROSTHETIC HEART VALVE REPLACEMENT 2.5 - 3.5 RECURRENT THROMBOSIS Performed By: #### P T ####[facility] Pplajzqswg[address] [place], [place] [address]Dr. Farhat Leal PT Coag (PPP) [Time] 13.7 s Critically high 9.0-11.6 [facility] Comment on above: Performed By: #### P T ####[facility] Dxggjycpwy9319 [place] [address]Dr. Farhat Leal SED RATE WESTERGRENon 2021 SED RATE 77 mm/hr Critically high <=20 [facility] Comment on above: Performed By: #### S EDR ####[facility] Bwcykijidh9[address] [place], [place] [address]Dr. Farhat Leal XR CHEST 2 Von 11-28-2021 XR CHEST 2 V Normal [facility] BNPon 11-27-2021 Natriuretic peptide B (Bld) [Mass/Vol] 57126.0 pg/mL Critically high <=1,800.0 [facility] Comment on above: Performed By: #### B GTA, CMP, CRP ####[facility] Gdsyaaujrn[address] [place], [place] [address]Dr. Farhat Leal CBC AUTO DIFFon 11-27-2021 BASO # 0.0 103/ul Normal 0.0-0.1 [facility] Comment on above: Performed By: #### C BC ####[facility] Dolyyxzgce5[address] [place], [place] [address]Dr. Farhat Leal Basophils/100 WBC (Bld) 0.2 % Normal 0.2-2.0 [facility] Comment on above: Performed By: #### C BC ####[facility] Tuqyzsqeey[address] [place], [place] [address]Dr. Farhat Leal EO # 0.2 103/ul Normal 0.0-0.7 [facility] Comment on above: Performed By: #### C BC ####[facility] Pgxjicxkrq[address] [place], [place] [address]Dr. Farhat Leal Eosinophils/100 WBC (Bld) 1.9 % Normal 0.9-7.0 [facility] Comment on above: Performed By: #### C BC ####[facility] Nfqosconpd[address] [place], [place] [address]Dr. Farhat Leal Erythrocyte distribution width (RBC) [Ratio] 13.9 % Normal 11.0-15.0 [facility] Comment on above: Performed By: #### C BC ####[facility] Egxwcwwsbk[address] [place], [place] [address]Dr. Farhat Leal Hematocrit (Bld) [Volume fraction] 28.7 % Critically low 42.0-54.0 [facility] Comment on above: Performed By: #### C BC ####[facility] Ybdakbqkki2131 [place] [address]Dr. Farhat Leal Hemoglobin (Bld) [Mass/Vol] 9.3 g/dL Critically low 14.0-18.0 [facility] Comment on above: Performed By: #### C BC ####[facility] Cvlvtqhjwk5368 [place] [address]Dr. Farhat Elvis IG # 0.14 10e3/ul Critically high 0.00-0.03 [facility] Comment on above: Performed By: #### C BC ####[facility] Pmnujngzct7176 [place] [address]Dr. Farhat Elvis IG % 1.2 % Critically high 0.0-0.5 [facility] Comment on above: Performed By: #### C BC ####[facility] Sqcgklyaxd8061 [place] [address]Dr. Farhat Elvis LYMPH # 1.1 103/ul Critically low 1.2-3.8 [facility] Comment on above: Performed By: #### C BC ####[facility] Mbrogvhyod3514 [place] [address]Dr. Farhat Leal Lymphocytes/100 WBC (Bld) 9.4 % Critically low 20.5-60.0 [facility] Comment on above: Performed By: #### C BC ####[facility] Jxyasmpslu3764 [place] [address]Dr. Farhat Elvis MANUAL DIFF REQ NO Normal [facility] Comment on above: Performed By: #### C BC ####[facility] Xxiqfozmmi7081 [place] [address]Dr. Farhat Elvis MCH (RBC) [Entitic mass] 29.7 pg Normal 25.9-34.0 [facility] Comment on above: Performed By: #### C BC ####[facility] Jhtrzekame3331 [place] [address]Dr. Farhat Leal MCHC (RBC) [Mass/Vol] 32.4 g/dL Normal 29.9-35.2 [facility] Comment on above: Performed By: #### C BC ####[facility] Qxvqvlfclu1195 [place] [phone]. Farhat Leal MCV (RBC) [Entitic vol] 91.7 fL Normal 80.0-94.0 [facility] Comment on above: Performed By: #### C BC ####[facility] Qontvmxbxt2602 [place] [phone]. Farhat Leal MONO # 1.1 103/ul Critically high 0.3-0.8 [facility] Comment on above: Performed By: #### C BC ####[facility] Fkmvwkcokt2455 [place] [phone]. Madelynlorri Leal Monocytes/100 WBC (Bld) 9.7 % Normal 1.7-12.0 [facility] Comment on above: Performed By: #### C BC ####[facility] Wovwonybvr6496 [place] [phone]. Farhat Leal NEUT # 9.2 103/ul Critically high 1.4-6.5 [facility] Comment on above: Performed By: #### C BC ####[facility] Qtkuxjrjmu1419 [place] [phone]. Farhat Elvis Neutrophils/100 WBC (Bld) 77.6 % Critically high 43.0-75.0 [facility] Comment on above: Performed By: #### C BC ####[facility] Souefpyeei2387 [place] [phone]. Farhat Elvis Platelet mean volume (Bld) [Entitic vol] 9.5 fL Normal 9.5-13.5 [facility] Comment on above: Performed By: #### C BC ####[facility] Fwbnozpegv5262 [place] [phone]. Farhat Elvis PLT 375 103/ul Normal 150-450 [facility] Comment on above: Performed By: #### C BC ####[facility] Dxjtlgxfmr2733 [place] [phone]. Farhat Leal RBC 3.13 106/ul Critically low 4.70-6.10 [facility] Comment on above: Performed By: #### C BC ####[facility] Iwdhivezce4567 [place] [phone]. Farhat Leal WBC 11.8 103/ul Critically high 4.0-11.0 [facility] Comment on above: Performed By: #### C BC ####[facility] Mvyrshmkgn1924 [place] [phone]. Farhat Leal CRPon 11-27-2021 CRP 24.5 mg/dL Critically high <=1.0 [facility] Comment on above: Performed By: #### B GTA, CMP, CRP ####[facility] Rutnarikys4277 [place] [phone]. Farhat Leal CULTURE OTHERon 11-27-2021 CULTURE OTHER Normal [facility] Comment on above: Performed By: #### O THCX ####[facility] Zvpiackjcz5694 [place] [address]Dr. Farhat Leal CULTURE OTHER Normal [facility] Comment on above: Performed By: #### O THCX ####[facility] Ctygwlyywd0698 [place] [phone]. Farhat Leal CULTURE WOUNDon 11-27-2021 CULTURE WOUND Normal [facility] Comment on above: Performed By: #### W OUNDCX ####[facility] Mijgqwrzkv7884 [place] [phone]. Farhat Leal POINT OF CARE GLUCOSEon 11-15 Glucose [Mass/Vol] 147 mg/dL Critically high 74-106 T [facility] Comment on above: Performed By: #### P OCGLUC ####[facility] Qwgayajpdo23[address] [place], [place] [address]Dr. Farhat Elvis PROF 14(COMP METB)on 022 Albumin [Mass/Vol] 1.4 g/dL Critically low 3.4-5.0 [facility] Comment on above: Performed By: #### B GTA, CMP, CRP ####[facility] Birkqdssbb3048 [place] [address]Dr. Farhat Leal Albumin/Globulin [Mass ratio] 0.4 {ratio} Normal [facility] Comment on above: Performed By: #### B GTA, CMP, CRP ####[facility] Pvoyjzagpg6673 [place] [address]Dr. Farhat Leal ALP [Catalytic activity/Vol] 82 U/L Normal 46-116 [facility] Comment on above: Performed By: #### B GTA, CMP, CRP ####[facility] Izolgyckap9630 [place] [address]Dr. Farhat Leal ALT [Catalytic activity/Vol] 22 U/L Normal 16-63 [facility] Comment on above: Performed By: #### B GTA, CMP, CRP ####[facility] Zxhjzmbigg6708 [place] [address]Dr. Farhat Leal Anion gap [Moles/Vol] 14.2 mmol/L Normal [facility] Comment on above: Performed By: #### B GTA, CMP, CRP ####[facility] Dnuauochrp5735 [place] [address]Dr. Farhat Leal AST [Catalytic activity/Vol] 35 U/L Normal 15-37 [facility] Comment on above: Performed By: #### B GTA, CMP, CRP ####[facility] Genlqbnnqu[address] [place], [place] [address]Dr. Farhat Leal Bilirubin [Mass/Vol] 0.7 mg/dL Normal 0.2-1.0 [facility] Comment on above: Performed By: #### B GTA, CMP, CRP ####[facility] Dxdabnhski4364 [place] [phone]. Farhat Leal Calcium [Mass/Vol] 8.2 mg/dL Critically low 8.5-10.1 [facility] Comment on above: Performed By: #### B GTA, CMP, CRP ####[facility] Giwsyxepzp1190 [place] [phone]. Farhat Leal Chloride [Moles/Vol] 99 mmol/L Normal 98-107 [facility] Comment on above: Performed By: #### B GTA, CMP, CRP ####[facility] Hchzuxvqzj5547 [place] [address]Dr. Farhat Leal CO2 [Moles/Vol] 22.6 mmol/L Normal 21.0-32.0 [facility] Comment on above: Performed By: #### B GTA, CMP, CRP ####[facility] Ntslalwtst4681 [place] [address]Dr. Farhat Leal Creatinine [Mass/Vol] 1.73 mg/dL Critically high 0.70-1.30 [facility] Comment on above: Performed By: #### B GTA, CMP, CRP ####[facility] Eiuoniblig90[address] [place], [place] [address]Dr. Farhat Leal EGFR-AF CYMRO 47 mL/min/1.73m2 Critically low >=60 [facility] Comment on above: Performed By: #### B GTA, CMP, CRP ####[facility] Kpbvkjepnf7[address] [place], [place] [address]Dr. Farhat Leal EGFR-NON AF CYMRO 38 mL/min/1.73m2 Critically low >=60 [facility] Comment on above: Performed By: #### B GTA, CMP, CRP ####[facility] Baifgvodnj[address] [place], [place] [address]Dr. Farhat Leal Globulin (S) [Mass/Vol] 3.7 g/dL Normal [facility] Comment on above: Performed By: #### B GTA, CMP, CRP ####[facility] Udwgyjvlgl1942 [place] [address]Dr. Farhat Leal Glucose [Mass/Vol] 220 mg/dL Critically high 74-106 [facility] Comment on above: Performed By: #### B GTA, CMP, CRP ####[facility] Twtrgkjowg01[address] [place], [place] [address]Dr. Farhat Leal Potassium [Moles/Vol] 3.8 mmol/L Normal 3.5-5.1 [facility] Comment on above: Performed By: #### B GTA, CMP, CRP ####[facility] Zfenklmvpi3022 [place] [address]Dr. Farhat Leal Protein [Mass/Vol] 5.1 g/dL Critically low 6.4-8.2 [facility] Comment on above: Performed By: #### B GTA, CMP, CRP ####[facility] Dsnuvhrjpm1935 [place] [address]Dr. Farhat Leal Sodium [Moles/Vol] 132 mmol/L Critically low 136-145 [facility] Comment on above: Performed By: #### B GTA, CMP, CRP ####[facility] Udubhulzpv0917 [place] [address]Dr. Farhat Leal Urea nitrogen [Mass/Vol] 49.0 mg/dL Critically high 7.0-18.0 [facility] Comment on above: Performed By: #### B GTA, CMP, CRP ####[facility] Rncflwmzut[address] [place], [place] [address]Dr. Farhat Leal Urea nitrogen/Creatinine [Mass ratio] 28.3 mg/mg Normal [facility] Comment on above: Performed By: #### B GTA, CMP, CRP ####[facility] Hbkrbygbxx7254 [place] [address]Dr. Farhat Leal PROTIMEon 11-27-2021 INR Coag (PPP) [Relative time] 1.25 {INR} Normal [facility] Comment on above: Performed By: #### P T ####[facility] Tzafmypmed29[address] [place], [place] [address]Dr. Farhat Leal INR GUIDELINES SEE BELOW Normal [facility] Comment on above: Result Comment: MALINA RED INR: 2.0 - 3.0 CONDITIONS NOT LISTED BELOW 2.5 - 3.5 FOR PROSTHETIC HEART VALVE REPLACEMENT 2.5 - 3.5 RECURRENT THROMBOSIS Performed By: #### P T ####[facility] Svzisrcmmb10[address] [place], [place] [address]Dr. Farhat Leal PT Coag (PPP) [Time] 13.3 s Critically high 9.0-11.6 [facility] Comment on above: Performed By: #### P T ####[facility] Favwakzolc[address] [place], [place] [id number]. Farhat Leal SED RATE WESTERGRENon 2021 SED RATE 60 mm/hr Critically high <=20 [facility] Comment on above: Performed By: #### S EDR ####[facility] Jqzhalpaac95[address] [place], [place] [address]Dr. Farhat Leal VANCOMYCIN TROUGHon 11-28-19 VANCOMYCIN TROUGH 21.2 ug/ml Critically high 5.0-20.0 Th e [facility] Comment on above: Performed By: #### V ANCT ####[facility] Lkjkcqkiha67[address] [place], [place] [address]Dr. Farhat Lela XR CHEST 1 Von 11-27-2021 XR CHEST 1 V Normal [facility] BNPon 11-26-2021 Natriuretic peptide B (Bld) [Mass/Vol] 49496.0 pg/mL Critically high <=1,800.0 [facility] Comment on above: Performed By: #### B GTA, CRP, CMP ####[facility] Xkjoavddhr1569[address] [place], [place] [address]Dr. Farhat Leal CBC AUTO DIFFon 11-26-2021 BASO # 0.0 103/ul Normal 0.0-0.1 [facility] Comment on above: Performed By: #### C BC ####[facility] Yyegrpfgdq16[address] [place], [place] [address]Dr. Farhat Leal Basophils/100 WBC (Bld) 0.2 % Normal 0.2-2.0 [facility] Comment on above: Performed By: #### C BC ####[facility] Nqfztilouj8[address] [place], [place] [address]Dr. Farhat Leal EO # 0.0 103/ul Normal 0.0-0.7 [facility] Comment on above: Performed By: #### C BC ####[facility] Smqezkmszx77[address] [place], [place] [address]Dr. Farhat Leal Eosinophils/100 WBC (Bld) 0.3 % Critically low 0.9-7.0 [facility] Comment on above: Performed By: #### C BC ####[facility] Oabqmikvvx[address] [place], [place] [address]Dr. Farhat Leal Erythrocyte distribution width (RBC) [Ratio] 13.9 % Normal 11.0-15.0 [facility] Comment on above: Performed By: #### C BC ####[facility] Dyqqfhiuyk[address] [place], [place] [address]Dr. Farhat Leal Hematocrit (Bld) [Volume fraction] 27.3 % Critically low 42.0-54.0 [facility] Comment on above: Performed By: #### C BC ####[facility] Bsoqvchski6[address] [place], [place] [address]Dr. Farhat Leal Hemoglobin (Bld) [Mass/Vol] 8.8 g/dL Critically low 14.0-18.0 [facility] Comment on above: Performed By: #### C BC ####[facility] Vbnuduzpuw430[address] [place], [place] [address]Dr. Farhat Leal IG # 0.17 10e3/ul Critically high 0.00-0.03 [facility] Comment on above: Performed By: #### C BC ####[facility] Zrmvfapxns[address] [place], [place] [address]Dr. Farhat Elvis IG % 1.2 % Critically high 0.0-0.5 [facility] Comment on above: Performed By: #### C BC ####[facility] Bfdjaotzso49[address] [place], [place] [address]Dr. Farhat Leal LYMPH # 0.7 103/ul Critically low 1.2-3.8 [facility] Comment on above: Performed By: #### C BC ####[facility] Sxkjshqitk4[address] [place], [place] [address]Dr. Madelynlorri Leal Lymphocytes/100 WBC (Bld) 4.8 % Critically low 20.5-60.0 [facility] Comment on above: Performed By: #### C BC ####[facility] Ikgwcomwpb850[address] [place], [place] [address]Dr. Farhat Leal MANUAL DIFF REQ NO Normal [facility] Comment on above: Performed By: #### C BC ####[facility] Izwjungatn8361 [place] [address]Dr. Farhat Leal MCH (RBC) [Entitic mass] 29.9 pg Normal 25.9-34.0 [facility] Comment on above: Performed By: #### C BC ####[facility] Qqgayzcjep8[address] [place], [place] [address]Dr. Farhat Leal MCHC (RBC) [Mass/Vol] 32.2 g/dL Normal 29.9-35.2 [facility] Comment on above: Performed By: #### C BC ####[facility] Svpatpiwkg4147 [place] [phone]. Farhat Leal MCV (RBC) [Entitic vol] 92.9 fL Normal 80.0-94.0 [facility] Comment on above: Performed By: #### C BC ####[facility] Qeqbuityie[address] [place], [place] [address]Dr. Farhat Elvis MONO # 1.3 103/ul Critically high 0.3-0.8 [facility] Comment on above: Performed By: #### C BC ####[facility] Hgegdoqzvm[address] [place], [place] [address]Dr. Farhat Elvis Monocytes/100 WBC (Bld) 9.6 % Normal 1.7-12.0 [facility] Comment on above: Performed By: #### C BC ####[facility] Dxwlqxjdjg[address] [place], [place] [address]Dr. Farhat Leal NEUT # 11.4 103/ul Critically high 1.4-6.5 [facility] Comment on above: Performed By: #### C BC ####[facility] Kozfoaskcp[address] [place], [place] [id number]. Farhat Elvis Neutrophils/100 WBC (Bld) 83.9 % Critically high 43.0-75.0 [facility] Comment on above: Performed By: #### C BC ####[facility] Lrxgvhzuvy[address] [place], [place] [address]Dr. Farhat Leal Platelet mean volume (Bld) [Entitic vol] 9.6 fL Normal 9.5-13.5 [facility] Comment on above: Performed By: #### C BC ####[facility] Zexsmlzylk2099 [place] [phone]. Farhat Leal PLT 395 103/ul Normal 150-450 [facility] Comment on above: Performed By: #### C BC ####[facility] Varjlxailz1641 [place] [phone]. Farhat Leal RBC 2.94 106/ul Critically low 4.70-6.10 [facility] Comment on above: Performed By: #### C BC ####[facility] Cmtptwqdjr7770 [place] [phone]. Farhat Leal WBC 13.6 103/ul Critically high 4.0-11.0 [facility] Comment on above: Performed By: #### C BC ####[facility] Goronwepbh1738 [place] [address]Dr. Farhat Leal CRPon 11-26-2021 CRP [Mass/Vol] mg/L Critically high <=1.0 [facility] Comment on above: Performed By: #### B GTA, CRP, CMP ####[facility] Luwokbcndd5821 [place] [address]Dr. Farhat Leal PROF 14(COMP METB)on 022 Albumin [Mass/Vol] 1.5 g/dL Critically low 3.4-5.0 [facility] Comment on above: Performed By: #### B GTA, CRP, CMP ####[facility] Faxckusytt0958 [place] [address]Dr. Farhat Leal Albumin/Globulin [Mass ratio] 0.4 {ratio} Normal [facility] Comment on above: Performed By: #### B GTA, CRP, CMP ####[facility] Habjgunmzl75[address] [place] [address]Dr. Farhat Leal ALP [Catalytic activity/Vol] 88 U/L Normal 46-116 [facility] [facility] Comment on above: Performed By: #### B GTA, CRP, CMP ####[facility] Kfgrjzmazf[address] [place] [phone]. Farhat Leal ALT [Catalytic activity/Vol] 29 U/L Normal 16-63 [facility] Comment on above: Performed By: #### B GTA, CRP, CMP ####[facility] Hannzyxgkn[address] [place] [address]Dr. Farhat Leal Anion gap [Moles/Vol] 13.3 mmol/L Normal [facility] Comment on above: Performed By: #### B GTA, CRP, CMP ####[facility] Ldaygouhsm[address] [place], [place] [address]Dr. Farhat Leal AST [Catalytic activity/Vol] 32 U/L Normal 15-37 [facility] Comment on above: Performed By: #### B GTA, CRP, CMP ####[facility] Fupkzcpxxb8[address] [place], [place] [address]Dr. Farhat Leal Bilirubin [Mass/Vol] 0.6 mg/dL Normal 0.2-1.0 [facility] Comment on above: Performed By: #### B GTA, CRP, CMP ####[facility] Rsqpxbakyd08[address] [place], [place] [address]Dr. Farhat Leal Calcium [Mass/Vol] 8.0 mg/dL Critically low 8.5-10.1 [facility] Comment on above: Performed By: #### B GTA, CRP, CMP ####[facility] Dyexpcchmd20[address] [place], [place] [address]Dr. Farhat Leal Chloride [Moles/Vol] 98 mmol/L Normal 98-107 [facility] Comment on above: Performed By: #### B GTA, CRP, CMP ####[facility] Rarazrckhe9[address] [place], [place] [address]Dr. Farhat Leal CO2 [Moles/Vol] 23.7 mmol/L Normal 21.0-32.0 [facility] Comment on above: Performed By: #### B GTA, CRP, CMP ####[facility] Rlgxgmweky10[address] [place], [place] [address]Dr. Farhat Leal Creatinine [Mass/Vol] 2.08 mg/dL Critically high 0.70-1.30 [facility] Comment on above: Performed By: #### B GTA, CRP, CMP ####[facility] Skuxvbcxic6[address] [place] [phone]. Farhat Leal EGFR-AF CYMRO 38 mL/min/1.73m2 Critically low >=60 [facility] Comment on above: Performed By: #### B GTA, CRP, CMP ####[facility] Rewsorlkkz47[address] [place] [address]Dr. Farhat Leal EGFR-NON AF CYMRO 31 mL/min/1.73m2 Critically low >=60 [facility] Comment on above: Performed By: #### B GTA, CRP, CMP ####[facility] Ifgfoktwpc89[address] [place] [address]Dr. Farhat Leal Globulin (S) [Mass/Vol] 3.7 g/dL Normal [facility] Comment on above: Performed By: #### B GTA, CRP, CMP ####[facility] Mfudlkphnz75[address] [place] [address]Dr. Farhat Elvis Glucose [Mass/Vol] 315 mg/dL Critically high 74-106 T [facility] Comment on above: Performed By: #### B GTA, CRP, CMP ####[facility] Kjhmxhkwuv279[address] [place], [place] [address]Dr. Farhat Leal Potassium [Moles/Vol] 4.0 mmol/L Normal 3.5-5.1 [facility] Comment on above: Performed By: #### B GTA, CRP, CMP ####[facility] Linblwypex883[address] [place], [place] [address]Dr. Farhat Leal Protein [Mass/Vol] 5.2 g/dL Critically low 6.4-8.2 [facility] Comment on above: Performed By: #### B GTA, CRP, CMP ####[facility] Plroqpnklb5409[address] [place], [place] [address]Dr. Farhat Leal Sodium [Moles/Vol] 131 mmol/L Critically low 136-145 Th [facility] Comment on above: Performed By: #### B GTA, CRP, CMP ####[facility] Dfbjjdlqhj86[address] [place] [address]Dr. Farhat Leal Urea nitrogen [Mass/Vol] 50.0 mg/dL Critically high 7.0-18.0 [facility] Comment on above: Performed By: #### B GTA, CRP, CMP ####[facility] Lqbuisnnso[address] [place], [place] [address]Dr. Farhat Leal Urea nitrogen/Creatinine [Mass ratio] 24.0 mg/mg Normal [facility] Comment on above: Performed By: #### B GTA, CRP, CMP ####[facility] Xuaqqtbyvt925[address] [place], [place] [address]Dr. Farhat Leal PROTIMEon 11-26-2021 INR Coag (PPP) [Relative time] 1.31 {INR} Normal [facility] Comment on above: Performed By: #### P T ####[facility] Pxwqnyopjs3[address] [place], [place] [address]Dr. Farhat Leal INR GUIDELINES SEE BELOW Normal [facility] Comment on above: Result Comment: MALINA RED INR: 2.0 - 3.0 CONDITIONS NOT LISTED BELOW 2.5 - 3.5 FOR PROSTHETIC HEART VALVE REPLACEMENT 2.5 - 3.5 RECURRENT THROMBOSIS Performed By: #### P T ####[facility] Yjnowaddpm108[address] [place], [place] [address]Dr. Farhat Leal PT Coag (PPP) [Time] 13.9 s Critically high 9.0-11.6 [facility] Comment on above: Performed By: #### P T ####[facility] Qdwrgidhzm5870[address] [place], [place] [address]Dr. Farhat Leal SED RATE ORLANDOERGREN 2021 SED RATE 87 mm/hr Critically high <=20 [facility] Comment on above: Performed By: #### S EDR ####[facility] Tyfipilfuv5950[address] [place], [place] [address]Dr. Farhat Leal BNPon 11-25-2021 Natriuretic peptide B (Bld) [Mass/Vol] 02858.0 pg/mL Critically high <=1,800.0 [facility] Comment on above: Performed By: #### C MP, BNP, CRP ####[facility] Dfcivduxxl4449[address] [place], [place] [address]Dr. Farhat Leal CBC AUTO DIFFon 11-25-2021 BASO # 0.0 103/ul Normal 0.0-0.1 [facility] Comment on above: Performed By: #### C BC ####[facility] Wrbqyfqqzr156[address] [place], [place] [address]Dr. Farhat Leal Basophils/100 WBC (Bld) 0.4 % Normal 0.2-2.0 [facility] Comment on above: Performed By: #### C BC ####[facility] Icmsxymtly226237 [address] [place], [place] [address]Dr. Farhat Leal EO # 0.1 103/ul Normal 0.0-0.7 [facility] Comment on above: Performed By: #### C BC ####[facility] Hyhroustda1554[address] [place], [place] [address]Dr. Farhat Leal Eosinophils/100 WBC (Bld) 1.2 % Normal 0.9-7.0 [facility] Comment on above: Performed By: #### C BC ####[facility] Xpwzfwusgv25[address] [place], [place] [address]Dr. Farhat Leal Erythrocyte distribution width (RBC) [Ratio] 13.7 % Normal 11.0-15.0 [facility] Comment on above: Performed By: #### C BC ####[facility] Msnatjumdb8[address] [place], [place] [address]Dr. Farhat Leal Hematocrit (Bld) [Volume fraction] 29.6 % Critically low 42.0-54.0 [facility] Comment on above: Performed By: #### C BC ####[facility] Uujlxxbpti38[address] [place], [place] [address]Dr. Farhat Leal Hemoglobin (Bld) [Mass/Vol] 9.3 g/dL Critically low 14.0-18.0 [facility] Comment on above: Performed By: #### C BC ####[facility] Izwphrtzsv5[address] [place], [place] [address]Dr. Madelynlorri Leal IG # 0.15 10e3/ul Critically high 0.00-0.03 [facility] Comment on above: Performed By: #### C BC ####[facility] Z[address]ubf[address] [place] [phone]. Farhat Leal IG % 1.4 % Critically high 0.0-0.5 [facility] Comment on above: Performed By: #### C BC ####[facility] Okdeigjjvg80[address] [place] [phone]. Farhat Elvis LYMPH # 0.8 103/ul Critically low 1.2-3.8 [facility] Comment on above: Performed By: #### C BC ####[facility] Amhylurljj5[address] [place] [address]Dr. Farhat Elvis Lymphocytes/100 WBC (Bld) 7.3 % Critically low 20.5-60.0 [facility] Comment on above: Performed By: #### C BC ####[facility] Fkcsuvbdnt68[address] [place] [address]Dr. Farhat Leal MANUAL DIFF REQ NO Normal [facility] Comment on above: Performed By: #### C BC ####[facility] Zgcbtzzgda45[address] [place] [address]Dr. Farhat Elvis MCH (RBC) [Entitic mass] 29.3 pg Normal 25.9-34.0 [facility] Comment on above: Performed By: #### C BC ####[facility] Bxrkexykmz[address] [place], [place] [address]Dr. Farhat Leal MCHC (RBC) [Mass/Vol] 31.4 g/dL Normal 29.9-35.2 [facility] Comment on above: Performed By: #### C BC ####[facility] Fhkilmdvqs7[address] [place] [address]Dr. Farhat Elvis MCV (RBC) [Entitic vol] 93.4 fL Normal 80.0-94.0 [facility] Comment on above: Performed By: #### C BC ####[facility] Ywhxiixtre8[address] [place], [place] [address]Dr. Farhat Leal MONO # 1.3 103/ul Critically high 0.3-0.8 [facility] Comment on above: Performed By: #### C BC ####[facility] Xlbunebmtb[address] [place] [phone]. Farhat Leal Monocytes/100 WBC (Bld) 12.3 % Critically high 1.7-12.0 [facility] Comment on above: Performed By: #### C BC ####[facility] Pecfoowsry[address] [place] [address]Dr. Farhat Leal NEUT # 8.4 103/ul Critically high 1.4-6.5 [facility] Comment on above: Performed By: #### C BC ####[facility] Ctkwurspvg5689 [place] [address]Dr. Farhat Leal Neutrophils/100 WBC (Bld) 77.4 % Critically high 43.0-75.0 [facility] Comment on above: Performed By: #### C BC ####[facility] Ffutfepdcd8[address] [place], [place] [address]Dr. Farhat Leal Platelet mean volume (Bld) [Entitic vol] 9.8 fL Normal 9.5-13.5 [facility] Comment on above: Performed By: #### C BC ####[facility] Jatreltatm[address] [place], [place] [address]Dr. Farhat Leal PLT 390 103/ul Normal 150-450 [facility] Comment on above: Performed By: #### C BC ####[facility] Ynlozysfhy[address] [place], [place] [address]Dr. Farhat Leal RBC 3.17 106/ul Critically low 4.70-6.10 [facility] Comment on above: Performed By: #### C BC ####[facility] Nanthpzciq44[address] [place] [phone]. Farhat Leal WBC 10.9 103/ul Normal 4.0-11.0 [facility] Comment on above: Performed By: #### C BC ####[facility] Utzpdghduc25[address] [place], [place] [address]Dr. Farhat Leal CRPon 11-25-2021 CRP 27.2 mg/dL Critically high <=1.0 [facility] Comment on above: Performed By: #### C MP, BNP, CRP ####[facility] Patwwxxesy[address]64 [place] [address]Dr. Farhat Leal PROF 14(COMP METB)on 022 Albumin [Mass/Vol] 1.5 g/dL Critically low 3.4-5.0 [facility] Comment on above: Performed By: #### C MP, BNP, CRP ####[facility] Udxgsqasrl99[address] [place] [address]Dr. Farhat Leal Albumin/Globulin [Mass ratio] 0.4 {ratio} Normal [facility] Comment on above: Performed By: #### C MP, BNP, CRP ####[facility] Vivvpfkzcx4066 [place] [address]Dr. Farhat Leal ALP [Catalytic activity/Vol] 86 U/L Normal 46-116 [facility] Comment on above: Performed By: #### C MP, BNP, CRP ####[facility] Cyikvksyts0735 [place] [address]Dr. Farhat Leal ALT [Catalytic activity/Vol] 34 U/L Normal 16-63 [facility] Comment on above: Performed By: #### C MP, BNP, CRP ####[facility] Hiqhqabuwy13[address] [place] [address]Dr. Farhat Leal Anion gap [Moles/Vol] 17.8 mmol/L Normal [facility] Comment on above: Performed By: #### C MP, BNP, CRP ####[facility] Wkcrcxhjrs3564 [place] [address]Dr. Farhat Leal AST [Catalytic activity/Vol] 48 U/L Critically high 15-37 [facility] Comment on above: Performed By: #### C MP, BNP, CRP ####[facility] Rakbzcyauc9930 [place] [address]Dr. Farhat Leal Bilirubin [Mass/Vol] 0.8 mg/dL Normal 0.2-1.0 [facility] Comment on above: Performed By: #### C MP, BNP, CRP ####[facility] Tfsefsoyyc0365 [place] [address]Dr. Farhat Leal Calcium [Mass/Vol] 8.3 mg/dL Critically low 8.5-10.1 Th e [facility] Comment on above: Performed By: #### C MP, BNP, CRP ####[facility] Nwqgjddgph7131 [place] [address]Dr. Farhat Leal Chloride [Moles/Vol] 97 mmol/L Critically low 98-107 [facility] Comment on above: Performed By: #### C MP, BNP, CRP ####[facility] Idyratzibv5413 [place] [address]Dr. Farhat Leal CO2 [Moles/Vol] 23.0 mmol/L Normal 21.0-32.0 [facility] Comment on above: Performed By: #### C MP, BNP, CRP ####[facility] Kkhhkevrnp7[address] [place], [place] [address]Dr. Farhat Leal Creatinine [Mass/Vol] 1.68 mg/dL Critically high 0.70-1.30 [facility] Comment on above: Performed By: #### C MP, BNP, CRP ####[facility] Xadovumwfy66[address] [place], [place] [address]Dr. Farhat Elvis EGFR-AF CYMRO 48 mL/min/1.73m2 Critically low >=60 [facility] Comment on above: Performed By: #### C MP, BNP, CRP ####[facility] Ppixefrclk33[address] [place] [address]Dr. Farhat Leal EGFR-NON AF CYMRO 40 mL/min/1.73m2 Critically low >=60 [facility] Comment on above: Performed By: #### C MP, BNP, CRP ####[facility] Yebeheldcu9636 [place] [address]Dr. Madelynlorri Leal Globulin (S) [Mass/Vol] 3.9 g/dL Normal [facility] Comment on above: Performed By: #### C MP, BNP, CRP ####[facility] Nkhiuhxskp230[address] [place] [address]Dr. Farhat Leal Glucose [Mass/Vol] 282 mg/dL Critically high 74-106 T [facility] Comment on above: Performed By: #### C MP, BNP, CRP ####[facility] Yenauhbhem0063 [place] [address]Dr. Farhat Leal Potassium [Moles/Vol] 4.8 mmol/L Normal 3.5-5.1 [facility] Comment on above: Performed By: #### C MP, BNP, CRP ####[facility] Paapavamnk7784 [place] [address]Dr. Farhat Leal Protein [Mass/Vol] 5.4 g/dL Critically low 6.4-8.2 Th [facility] Comment on above: Performed By: #### C MP, BNP, CRP ####[facility] Yvlvjwgesk14[address] [place], [place] [address]Dr. Farhat Leal Sodium [Moles/Vol] 133 mmol/L Critically low 136-145 Th [facility] Comment on above: Performed By: #### C MP, BNP, CRP ####[facility] Tmgflbnafc344[address] [place], [place] [address]Dr. Farhat Leal Urea nitrogen [Mass/Vol] 40.0 mg/dL Critically high 7.0-18.0 [facility] Comment on above: Performed By: #### C MP, BNP, CRP ####[facility] Ouawqdpbvi15[address] [place], [place] [address]Dr. Farhat Leal Urea nitrogen/Creatinine [Mass ratio] 23.8 mg/mg Normal [facility] Comment on above: Performed By: #### C MP, BNP, CRP ####[facility] Oqgmntwvep4517[address] [place], [place] [address]Dr. Farhat Leal PROTIMEon 11-25-2021 INR Coag (PPP) [Relative time] 1.48 {INR} Normal [facility] Comment on above: Performed By: #### P T ####[facility] Xguiokokge557[address] [place], [place] [address]Dr. Farhat Leal INR GUIDELINES SEE BELOW Normal [facility] Comment on above: Result Comment: MALINA RED INR: 2.0 - 3.0 CONDITIONS NOT LISTED BELOW 2.5 - 3.5 FOR PROSTHETIC HEART VALVE REPLACEMENT 2.5 - 3.5 RECURRENT THROMBOSIS Performed By: #### P T ####[facility] Ixiogvjify54[address] [place], [place] [address]Dr. Farhat Leal PT Coag (PPP) [Time] 15.6 s Critically high 9.0-11.6 [facility] Comment on above: Performed By: #### P T ####[facility] Zznsmdmwug566[address] [place], [place] [address]Dr. Farhat Leal SED RATE WESTERGRENon 2021 SED RATE 76 mm/hr Critically high <=20 [facility] Comment on above: Performed By: #### S EDR ####[facility] Rpthumogaj9265[address] [place], [place] [address]Dr. Farhat Leal BNPon 11-24-2021 Natriuretic peptide B (Bld) [Mass/Vol] 91095.0 pg/mL Critically high <=1,800.0 [facility] Comment on above: Performed By: #### B GTA, CMP, CRP ####[facility] Gexkildzic9165[address] [place], [place] [address]Dr. Farhat Leal CBC AUTO DIFFon 11-24-2021 BASO # 0.0 103/ul Normal 0.0-0.1 [facility] Comment on above: Performed By: #### C BC ####[facility] Cevylpzbms9722[address] [place], [place] [address]Dr. Farhat Leal Basophils/100 WBC (Bld) 0.3 % Normal 0.2-2.0 [facility] Comment on above: Performed By: #### C BC ####[facility] Qgozzwsjtw2623[address] [place], [place] [address]Dr. Farhat Leal EO # 0.2 103/ul Normal 0.0-0.7 [facility] Comment on above: Performed By: #### C BC ####[facility] Rnucvlitkf7140[address] [place], [place] [address]Dr. Farhat Leal Eosinophils/100 WBC (Bld) 1.2 % Normal 0.9-7.0 [facility] Comment on above: Performed By: #### C BC ####[facility] Zmdawyxvec3489[address] [place], [place] [address]Dr. Farhat Leal Erythrocyte distribution width (RBC) [Ratio] 13.5 % Normal 11.0-15.0 [facility] Comment on above: Performed By: #### C BC ####[facility] Idebdtmann9[address] [place] [address]DrSkylar Leal Hematocrit (Bld) [Volume fraction] 31.1 % Critically low 42.0-54.0 [facility] Comment on above: Performed By: #### C BC ####[facility] Fhcaranfry[address] [place], [place] [address]DrSkylar Leal Hemoglobin (Bld) [Mass/Vol] 10.0 g/dL Critically low 14.0-18.0 [facility] Comment on above: Performed By: #### C BC ####[facility] Mxncyldepi8804[address] [place], [place] [address]DrSkylar Leal IG # 0.13 10e3/ul Critically high 0.00-0.03 [facility] Comment on above: Performed By: #### C BC ####[facility] Esqvjespyx712[address] [place], [place] [address]DrSkylar Leal IG % 1.0 % Critically high 0.0-0.5 [facility] Comment on above: Performed By: #### C BC ####[facility] Efirolqlbi5278[address] [place], [place] [address]DrSkylar Leal LYMPH # 0.7 103/ul Critically low 1.2-3.8 [facility] Comment on above: Performed By: #### C BC ####[facility] Okibgozcyz929[address] [place], [place] [address]DrSkylar Leal Lymphocytes/100 WBC (Bld) 4.9 % Critically low 20.5-60.0 [facility] Comment on above: Performed By: #### C BC ####[facility] Micejtmmqe9247[address] [place], [place] [address]DrSkylar Leal MANUAL DIFF REQ NO Normal [facility] Comment on above: Performed By: #### C BC ####[facility] Phrzajhgtv9840[address] [place], [place] [address]DrSkylar Leal MCH (RBC) [Entitic mass] 29.6 pg Normal 25.9-34.0 [facility] Comment on above: Performed By: #### C BC ####[facility] Mikrukbdqn6382 [place] [address]Dr. Farhat Elvis MCHC (RBC) [Mass/Vol] 32.2 g/dL Normal 29.9-35.2 [facility] Comment on above: Performed By: #### C BC ####[facility] Jjjsoimzty6[address] [place], [place] [address]Dr. Farhat Leal MCV (RBC) [Entitic vol] 92.0 fL Normal 80.0-94.0 [facility] Comment on above: Performed By: #### C BC ####[facility] Cpuznlxpqd007[address] [place], [place] [address]Dr. Farhat eLal MONO # 1.3 103/ul Critically high 0.3-0.8 [facility] Comment on above: Performed By: #### C BC ####[facility] Ekuxlvbned8407[address] [place], [place] [address]Dr. Farhat Leal Monocytes/100 WBC (Bld) 9.6 % Normal 1.7-12.0 [facility] Comment on above: Performed By: #### C BC ####[facility] Qbddeigxei3033[address] [place], [place] [address]Dr. Farhat Leal NEUT # 11.2 103/ul Critically high 1.4-6.5 [facility] Comment on above: Performed By: #### C BC ####[facility] Mudlthewle[address]254[address] [place], [place] [address]Dr. Farhat Leal Neutrophils/100 WBC (Bld) 83.0 % Critically high 43.0-75.0 [facility] Comment on above: Performed By: #### C BC ####[facility] Klkcaanigl1504[address] [place], [place] [address]Dr. Farhat Leal Platelet mean volume (Bld) [Entitic vol] 9.5 fL Normal 9.5-13.5 [facility] Comment on above: Performed By: #### C BC ####[facility] Igkqugggkv9260 [place] [phone]. Farhat Leal PLT 395 103/ul Normal 150-450 [facility] Comment on above: Performed By: #### C BC ####[facility] Efxijsadyb[address] [place], [place] [id number]. Farhat Leal RBC 3.38 106/ul Critically low 4.70-6.10 [facility] Comment on above: Performed By: #### C BC ####[facility] Vpgswjtlgo179792 [address] [place], [place] [id number]. Farhat Leal WBC 13.4 103/ul Critically high 4.0-11.0 [facility] Comment on above: Performed By: #### C BC ####[facility] Dzswbfollc64[address] [place], [place] [id number]. Farhat Leal CRPon 11-24-2021 CRP 27.8 mg/dL Critically high <=1.0 [facility] Comment on above: Performed By: #### B GTA, CMP, CRP ####[facility] Elomzhuldp7[address] [place], [place] [id number]. Farhat Leal CULTURE ANAEROBICon 11-25-19 22 CULTURE ANAEROBIC Culture Observations : NO GROWTH OF ANAEROBES AT [address] [facility] Comment on above: Performed By: #### A NACX ####[facility] Tvdrqppktp[address] [place], [place] [id number]. Farhat Leal CULTURE ANAEROBIC Culture Observations : NO GROWTH OF ANAEROBES AT [address] [facility] Comment on above: Performed By: #### A NACX ####[facility] Zbqgxuttte027[address] [place], [place] [id number]. Farhat Leal CULTURE ANAEROBIC Culture Observations : No growth of anaerobes at [address] [facility] Comment on above: Performed By: #### A NACX ####[facility] Ymxqgkxrew84[address] [place], [place] [id number]. Farhat Leal CULTURE ANAEROBIC Culture Observations : No growth of anaerobes at [address] [facility] Comment on above: Performed By: #### A NACX ####[facility] Osgcpygxof90[address] [place], [place] [id number]. Farhat Leal CULTURE URINEon 11-24-2021 CULTURE URINE Culture Observations : NO GROWTH. Normal The [facility] Comment on above: Performed By: #### U RCX ####[facility] Lronqsinmv9164[address] [place], [place] [address]Dr. Madelynlorri Elvis ECHOCARDIO M/2D COMPLETEon 1 ECHOCARDIO M/2D COMPLETE Normal The [facility] ER URINE PROFILEon Bilirubin Ql (U) Negative Normal NEGATIVE The [facility] Comment on above: Performed By: #### E RUR ####[facility] Tknjnczvlw320[address] [place], [place] [address]Dr. Farhat Lael Clarity (U) CLEAR Normal CLEAR The [facility] Comment on above: Performed By: #### E RUR ####[facility] Tefbmgdrja979[address] [place], [place] [address]Dr. Farhat Leal Color (U) YELLOW Normal YELLOW The [facility] Comment on above: Performed By: #### E RUR ####[facility] Oytpzgjdpz1154[address] [place], [place] [address]Dr. Farhat Leal ERUAHD A micrscopic examination will be performed if indicated. Normal The [facility] Comment on above: Performed By: #### E RUR ####[facility] Cpoykmdyqb683837 [address] [place], [place] [address]Dr. Farhat Leal Glucose Ql (U) Negative Normal NEGATIVE [facility] Comment on above: Performed By: #### E RUR ####[facility] Jrgerxfwez765037 [address] [place], [place] [address]Dr. Farhat Leal Hemoglobin Ql (U) Negative Normal NEGATIVE The [facility] Comment on above: Performed By: #### E RUR ####[facility] Obrojshets1406[address] [place], [place] [address]Dr. Farhat Leal Ketones Ql (U) TRACE Abnormal NEGATIVE [facility] Comment on above: Performed By: #### E RUR ####[facility] Pxnfgijjpm7560[address] [place], [place] [address]Dr. Farhat Leal LEUKOCYTES Negative Normal NEGATIVE The [facility] Comment on above: Performed By: #### E RUR ####[facility] Dsshaztgkf4250 [place] [address]Dr. Farhat Leal Nitrite Ql (U) Negative Normal NEGATIVE [facility] Comment on above: Performed By: #### E RUR ####[facility] Bsufugnklp1613[address] [place], [place] [address]Dr. Farhat Leal pH (U) 5.5 [pH] Normal 5-9 [facility] Comment on above: Performed By: #### E RUR ####[facility] Ogvnbdmlwe6885[address] [place], [place] [address]Dr. Farhat Leal SPEC GRAVITY 1.015 Normal 1.005-<=1.02 5 [facility] Comment on above: Performed By: #### E RUR ####[facility] Jyeoeyfgcn2240[address] [place], [place] [address]Dr. Farhat Leal UA PROTEIN Negative Normal NEGATIVE/ TRACE The [facility] Comment on above: Performed By: #### E RUR ####[facility] Dnmhslsydk089[address] [place], [place] [address]Dr. Farhat Leal UR MICRO IND NOT INDICATED Normal [facility] Comment on above: Performed By: #### E RUR ####[facility] Jilhmpadnk4016[address] [place], [place] [address]Dr. Farhat Leal Urobilinogen Qn (U) 0.2 {Boyd'U}/dL Normal 0.2 - 1. 0 [facility] Comment on above: Performed By: #### E RUR ####[facility] Shmutckvfm4738[address] [place], [place] [address]Dr. Farhat Leal GRAM STAINon 11-24-2021 DIPHTHEROIDS Normal The [facility] Comment on above: Performed By: #### G STAIN ####[facility] Rbejovukkd9019[address] [place], [place] [address]Dr. Farhat Leal EPITHELIALS Normal The [facility] Comment on above: Performed By: #### G STAIN ####[facility] Klgdkpjkry2689[address] [place], [place] [address]Dr. Farhat Leal FUNGAL ELEMENTS Normal [facility] Comment on above: Performed By: #### G STAIN ####[facility] Xribakbrqw[address] [place] [address]Dr. Farhat Leal GRAM NEG BACILLI Normal The [facility] Comment on above: Performed By: #### G STAIN ####[facility] Qtntewtcpj6479 [place] [address]Dr. Farhat Leal GRAM NEG DIPPLOCOCCI Normal The [facility] Comment on above: Performed By: #### G STAIN ####[facility] Btyisudljc53[address] [place] [address]Dr. Farhat Leal GRAM POS BACILLI Normal The [facility] Comment on above: Performed By: #### G STAIN ####[facility] Oenzcjekbb6109[address] [place], [place] [address]Dr. Farhat Leal GRAM POSITIVE COCCI FEW Normal [facility] Comment on above: Performed By: #### G STAIN ####[facility] Qqgomhflbp740[address] [place], [place] [address]Dr. Farhat Leal GRAM STAIN SOURCE RT ACHILLES TENDON Normal The [facility] Comment on above: Performed By: #### G STAIN ####[facility] Sygtigzxhw688[address] [place], [place] [address]Dr. Farhat Leal GS_DIPTH Normal The [facility] Comment on above: Performed By: #### G STAIN ####[facility] Hzxsebgvpf0005[address] [place], [place] [address]Dr. Farhat Leal WBC RARE Normal The [facility] Comment on above: Performed By: #### G STAIN ####[facility] Novtatmnux70[address] [place], [place] [address]Dr. Farhat Leal COMMENTS NO ORGANISMS OBSERVED Normal The [facility] Comment on above: Performed By: #### G STAIN ####[facility] Splenkirzl7936[address] [place], [place] [address]Dr. Farhat Leal DIPHTHEROIDS Normal The [facility] Comment on above: Performed By: #### G STAIN ####[facility] Igwigyvljk6859 [place] [address]Dr. Farhat Leal EPITHELIALS Normal The [facility] Comment on above: Performed By: #### G STAIN ####[facility] Kvxtisnhhn05[address] [place] [phone]. Farhat Leal FUNGAL ELEMENTS Normal [facility] Comment on above: Performed By: #### G STAIN ####[facility] Uscnxkrutk4394 [place] [phone]. Farhat Leal GRAM NEG BACILLI Normal The [facility] Comment on above: Performed By: #### G STAIN ####[facility] Owodjgeryq1434 [place] [phone]. Farhat Leal GRAM NEG DIPPLOCOCCI Normal The [facility] Comment on above: Performed By: #### G STAIN ####[facility] Hraiuidrfi7370 [place] [address]Dr. Farhat Leal GRAM POS BACILLI Normal The [facility] Comment on above: Performed By: #### G STAIN ####[facility] Wkpbcxqjna5213 [place] [address]Dr. Farhat Leal GRAM POSITIVE COCCI Normal The [facility] Comment on above: Performed By: #### G STAIN ####[facility] Mpqcscfxtj5016[address] [place], [place] [address]Dr. Farhat Leal GRAM STAIN SOURCE RT CALCANEOUS Normal The [facility] Comment on above: Performed By: #### G STAIN ####[facility] Zksshvmkaq6050 [place] [address]Dr. Farhat Leal GS_DIPTH Normal The [facility] Comment on above: Performed By: #### G STAIN ####[facility] Xngkanadwe5509 [place] [address]Dr. Farhat Leal WBC RARE Normal The [facility] Comment on above: Performed By: #### G STAIN ####[facility] Dpzlazyfel2195 [place] [address]Dr. Farhat Leal DIPHTHEROIDS Normal The [facility] Comment on above: Performed By: #### G STAIN ####[facility] Atxxjbyogn7048 [place] [address]Dr. Farhat Leal EPITHELIALS Normal The [facility] Comment on above: Performed By: #### G STAIN ####[facility] Vzlznaztep8850 [place] [address]Dr. Farhat Leal FUNGAL ELEMENTS Normal [facility] Comment on above: Performed By: #### G STAIN ####[facility] Mgdkattfis2003 [place] [address]Dr. Farhat Leal GRAM NEG BACILLI FEW Normal The [facility] Comment on above: Performed By: #### G STAIN ####[facility] Jqsvtvryrp3543 [place] [address]Dr. Farhat Leal GRAM NEG DIPPLOCOCCI Normal The [facility] Comment on above: Performed By: #### G STAIN ####[facility] Smdkkbgssq0657 [place] [address]Dr. Farhat Leal GRAM POS BACILLI Normal The [facility] Comment on above: Performed By: #### G STAIN ####[facility] Lxhzvxaalj7189[address] [place], [place] [address]Dr. Farhat Leal GRAM POSITIVE COCCI FEW Normal [facility] Comment on above: Performed By: #### G STAIN ####[facility] Gaikrcpkvx934237 [address] [place], [place] [address]Dr. Farhat Leal GRAM STAIN SOURCE #2 Rt foot abscess Normal The [facility] Comment on above: Performed By: #### G STAIN ####[facility] Ajzwbelqmz737[address] [place], [place] [address]Dr. Farhat Leal GS_DIPTH Normal The [facility] Comment on above: Performed By: #### G STAIN ####[facility] Hmhwikpfqb0260[address] [place], [place] [address]Dr. Farhat Leal WBC RARE Normal The [facility] Comment on above: Performed By: #### G STAIN ####[facility] Yhlxvkaqwl4682 [place] [address]Dr. Farhat Leal DIPHTHEROIDS Normal The [facility] Comment on above: Performed By: #### G STAIN ####[facility] Fsfrhnakab5806[address] [place], [place] [address]Dr. Farhat Leal EPITHELIALS Normal The [facility] Comment on above: Performed By: #### G STAIN ####[facility] Jsyosldhtw1036[address] [place], [place] [address]Dr. Farhat Leal FUNGAL ELEMENTS Normal [facility] Comment on above: Performed By: #### G STAIN ####[facility] Byrcgzzcqs2246 [place] [address]Dr. Farhat Leal GRAM NEG BACILLI FEW Normal [facility] Comment on above: Performed By: #### G STAIN ####[facility] Ewaszvtwjj9774 [place] [address]Dr. Farhat Leal GRAM NEG DIPPLOCOCCI Normal The [facility] Comment on above: Performed By: #### G STAIN ####[facility] Acddgususk9929[address] [place], [place] [address]Dr. Farhat Leal GRAM POS BACILLI Normal The [facility] Comment on above: Performed By: #### G STAIN ####[facility] Ayddddwusn6334[address] [place], [place] [address]Dr. Farhat Leal GRAM POSITIVE COCCI FEW Normal [facility] Comment on above: Performed By: #### G STAIN ####[facility] Txceohsaxq3070[address] [place], [place] [address]Dr. Farhat Leal GRAM STAIN SOURCE #1 Rt foot abscess Normal The [facility] Comment on above: Performed By: #### G STAIN ####[facility] Smyhvernyv144[address] [place], [place] [address]Dr. Farhat Leal GS_DIPTH Normal The [facility] Comment on above: Performed By: #### G STAIN ####[facility] Ccifnwluci701[address] [place], [place] [address]Dr. Farhat Leal WBC NONE SEEN Normal [facility] Comment on above: Performed By: #### G STAIN ####[facility] Pljrhcxmgw245[address] [place], [place] [address]Dr. Farhat Leal POINT OF CARE GLUCOSEon 10-1 0-2021 Glucose [Mass/Vol] 331 mg/dL Critically high 74-106 [facility] Comment on above: Performed By: #### P OCGLUC ####[facility] Uogyzwwgcr5507 [place] [address]Dr. Farhat Leal Glucose [Mass/Vol] 236 mg/dL Critically high 74-106 [facility] Comment on above: Performed By: #### P OCGLUC ####[facility] Hanvcxnjah8396 [place] [address]Dr. Farhat Leal PROF 14(COMP METB)on 022 Albumin [Mass/Vol] 1.6 g/dL Critically low 3.4-5.0 [facility] Comment on above: Performed By: #### B GTA, CMP, CRP ####[facility] Zjxnojmeob1601 [place] [address]Dr. Farhat Leal Albumin/Globulin [Mass ratio] 0.4 {ratio} Normal [facility] Comment on above: Performed By: #### B GTA, CMP, CRP ####[facility] Qgmobnfuif2437[address] [place], [place] [address]Dr. Farhat Leal ALP [Catalytic activity/Vol] 94 U/L Normal 46-116 [facility] Comment on above: Performed By: #### B GTA, CMP, CRP ####[facility] Ydgcmbpzak947[address] [place], [place] [address]Dr. Farhat Leal ALT [Catalytic activity/Vol] 49 U/L Normal 16-63 [facility] Comment on above: Performed By: #### B GTA, CMP, CRP ####[facility] Zzkjxbzuck9415[address] [place], [place] [address]Dr. Farhat Leal Anion gap [Moles/Vol] 12.5 mmol/L Normal [facility] Comment on above: Performed By: #### B GTA, CMP, CRP ####[facility] Ahjjyorepa6966[address] [place], [place] [address]Dr. Farhat Leal AST [Catalytic activity/Vol] 102 U/L Critically high 15-37 [facility] Comment on above: Performed By: #### B GTA, CMP, CRP ####[facility] Vfaqpwpakd8246[address] [place], [place] [address]Dr. Farhat Leal Bilirubin [Mass/Vol] 0.8 mg/dL Normal 0.2-1.0 [facility] Comment on above: Performed By: #### B GTA, CMP, CRP ####[facility] Snlfyakzre4780[address] [place], [place] [address]Dr. Farhat Leal Calcium [Mass/Vol] 8.4 mg/dL Critically low 8.5-10.1 Th [facility] Comment on above: Performed By: #### B GTA, CMP, CRP ####[facility] Sbvujchxkb5011 [place] [address]Dr. Farhat Leal Chloride [Moles/Vol] 96 mmol/L Critically low 98-107 [facility] Comment on above: Performed By: #### B GTA, CMP, CRP ####[facility] Gawicurxau0998 [place] [address]Dr. Farhat Leal CO2 [Moles/Vol] 24.8 mmol/L Normal 21.0-32.0 [facility] Comment on above: Performed By: #### B GTA, CMP, CRP ####[facility] Hfjepxpcxw[address] [place], [place] [address]Dr. Madelynlorri Elvis Creatinine [Mass/Vol] 1.36 mg/dL Critically high 0.70-1.30 [facility] Comment on above: Performed By: #### B GTA, CMP, CRP ####[facility] Gufvcxgteg660[address] [place], [place] [address]Dr. Farhat Elvis EGFR-AF CYMRO >60 Normal >=60 [facility] Comment on above: Performed By: #### B GTA, CMP, CRP ####[facility] Zxdjjlqihz8962 [place] [address]Dr. Farhat Elvis EGFR-NON AF CYMRO 51 mL/min/1.73m2 Critically low >=60 [facility] Comment on above: Performed By: #### B GTA, CMP, CRP ####[facility] Jggvvhxftb8777 [place] [address]Dr. Farhat Leal Globulin (S) [Mass/Vol] 4.1 g/dL Normal [facility] Comment on above: Performed By: #### B GTA, CMP, CRP ####[facility] Johlpwlwoq9325 [place] [address]Dr. Farhat Leal Glucose [Mass/Vol] 204 mg/dL Critically high 74-106 T [facility] Comment on above: Performed By: #### B GTA, CMP, CRP ####[facility] Rzrrjaymeu9892 [place] [address]Dr. Farhat Leal Potassium [Moles/Vol] 4.3 mmol/L Normal 3.5-5.1 [facility] Comment on above: Performed By: #### B GTA, CMP, CRP ####[facility] Uzcplavyig6485 [place] [address]Dr. Madelynlorri Leal Protein [Mass/Vol] 5.7 g/dL Critically low 6.4-8.2 Th [facility] Comment on above: Performed By: #### B GTA, CMP, CRP ####[facility] Pywrfuegwv2398 [place] [address]Dr. Farhat Leal Sodium [Moles/Vol] 129 mmol/L Critically low 136-145 Th [facility] Comment on above: Performed By: #### B GTA, CMP, CRP ####[facility] Zxxdyjdkoa784[address] [place], [place] [address]Dr. Farhat Leal Urea nitrogen [Mass/Vol] 41.0 mg/dL Critically high 7.0-18.0 [facility] Comment on above: Performed By: #### B GTA, CMP, CRP ####[facility] Ljqgrjcvov3656[address] [place], [place] [address]Dr. Farhat Leal Urea nitrogen/Creatinine [Mass ratio] 30.1 mg/mg Normal [facility] Comment on above: Performed By: #### B GTA, CMP, CRP ####[facility] Zsvazswgdw0125[address] [place], [place] [address]Dr. Fahrat Leal PROTIMEon 11-24-2021 INR Coag (PPP) [Relative time] 2.20 {INR} Normal [facility] Comment on above: Performed By: #### P T ####[facility] Pnmmxnhepi428[address] [place], [place] [address]Dr. Farhat Leal INR GUIDELINES SEE BELOW Normal [facility] Comment on above: Result Comment: MALINA RED INR: 2.0 - 3.0 CONDITIONS NOT LISTED BELOW 2.5 - 3.5 FOR PROSTHETIC HEART VALVE REPLACEMENT 2.5 - 3.5 RECURRENT THROMBOSIS Performed By: #### P T ####[facility] Oqbxirvsry428[address] [place], [place] [address]Dr. Farhat Leal PT Coag (PPP) [Time] 22.6 s Critically high 9.0-11.6 [facility] Comment on above: Performed By: #### P T ####[facility] Jxexiymvbp1337[address] [place], [place] [address]Dr. Farhat Leal SED RATE [facility] 2021 SED RATE 80 mm/hr Critically high <=20 [facility] Comment on above: Performed By: #### S EDR ####[facility] Qsezchpvmo7799[address] [place], [place] [address]Dr. Farhat Leal BLOOD CULTURE ID PANELon A. baumannii Not detected Normal NOT DETECTED [facility] Comment on above: Performed By: #### B CID2 ####[facility] Ctbdbbounx3884[address] [place], [place] [address]Dr. Farhat Elvis Bacteriodes fragilis Not detected Normal NOT DETECTED [facility] Comment on above: Performed By: #### B CID2 ####[facility] Bkxcdtaxnh025[address] [place], [place] [address]Dr. Farhat Elvis BCID CONTROLS PASSED Normal [facility] Comment on above: Performed By: #### B CID2 ####[facility] Uiuhgibeeg177[address] [place], [place] [address]Dr. Farhat Elvis BCIDBTHD BLOOD CULTURE BOTTLE INFORMATION Normal [facility] Comment on above: Performed By: #### B CID2 ####[facility] Stujpamnwd9654[address] [place], [place] [address]Dr. Farhat Elvis BCIDHD1 ANTIMICROBIAL RESISTANCE GENES Normal [facility] Comment on above: Performed By: #### B CID2 ####[facility] Lbjsrquvff87[address] [place], [place] [address]Dr. Farhat Elvis BCIDHD2 SEE BELOW Normal [facility] Comment on above: Result Comment: Note : Antimicrobial resitance can occur via multiple mechanisms. A Not Detected result for the [employer] antomicrobial resistance gene assays does not indicate antimicrobial susceptibility. Subculturing is required for species identification and susceptibility testing of isolates. Performed By: #### B CID2 ####[facility] Qlevkrnpmu2563 [place] [phone]. Yilorri Leal BCIDHD3 Positive Normal [facility] Comment on above: Performed By: #### B CID2 ####[facility] Ibexaqwiwq7978 [place] [address]Dr. Yilorri Leal BCIDHD4 Negative Normal [facility] Comment on above: Performed By: #### B CID2 ####[facility] Uinqjpmxsx7958 [place] [address]Dr. Farhat Leal BCIDHD5 YEAST Normal [facility] Comment on above: Performed By: #### B CID2 ####[facility] [facility] Oxagjodcpl[address] [place] [phone]. Farhat Leal Bottle Set: Set 1 Normal The [facility] Comment on above: Performed By: #### B CID2 ####[facility] Iqfgtarbrl64[address] [place], [place] [address]Dr. Farhat Leal Bottle: Aerobic Normal The [facility] Comment on above: Performed By: #### B CID2 ####[facility] Upjjhpgiwc[address] [place] [address]Dr. Yilorri Leal C. neoformans/gattii Not detected Normal NOT DETECTED The [facility] Comment on above: Performed By: #### B CID2 ####[facility] Thbckyyxzh78[address] [place] [address]Dr. Yilorri Leal Disha albicans Not detected Normal NOT DETECTED The [facility] Comment on above: Performed By: #### B CID2 ####[facility] Mwbxocnhqe67[address] [place] [address]Dr. Yilorri Leal Disha auris Not detected Normal NOT DETECTED The [facility] Comment on above: Performed By: #### B CID2 ####[facility] Pgrfbkknis13[address] [place], [place] [address]Dr. Yilorri Leal Disha glabrata Not detected Normal NOT DETECTED The [facility] Comment on above: Performed By: #### B CID2 ####[facility] Mjfysvyhew9[address] [place] [address]Dr. Yilorri Leal Disha Krusei Not detected Normal NOT DETECTED The [facility] Comment on above: Performed By: #### B CID2 ####[facility] Qzomzqnpml[address] [place], [place] [address]Dr. Farhat Leal Disha Parapsilosis Not detected Normal NOT DETECTED The [facility] Comment on above: Performed By: #### B CID2 ####[facility] Ezmhwtjgnk1101[address] [place], [place] [address]Dr. Yilorri Leal Disha Tropicalis Not detected Normal NOT DETECTED [facility] Comment on above: Performed By: #### B CID2 ####[facility] Fefxbknogi7414[address] [place], [place] [address]Dr. Farhat Leal CTX-M Resistant Gene Not Applicable Normal NOT DETECTE [facility] Comment on above: Performed By: #### B CID2 ####[facility] Lxztpxbalb7527[address] [place], [place] [address]Dr. Farhat Leal E. Cloacae complex Not detected Normal NOT DETECTED [facility] Comment on above: Performed By: #### B CID2 ####[facility] Zbsuzwfbdr3989[address] [place], [place] [address]Dr. Farhat Leal E. faecalis Not detected Normal NOT DETECTED The [facility] Comment on above: Performed By: #### B CID2 ####[facility] Ibhuxwqrzo0058[address] [place], [place] [address]Dr. Farhat Leal E. faecium Not detected Normal NOT DETECTED The [facility] Comment on above: Performed By: #### B CID2 ####[facility] Bcdnyfhqao2989[address] [place], [place] [address]Dr. Farhat Leal Enterobacteriaceae Not detected Normal NOT DETECTED [facility] Comment on above: Performed By: #### B CID2 ####[facility] Xresqhnhqq6769[address] [place], [place] [address]Dr. Farhat Lael Escherichia coli Not detected Normal NOT DETECTED [facility] Comment on above: Performed By: #### B CID2 ####[facility] Nsrpuccceg1039[address] [place], [place] [address]Dr. Madelynlorri Leal H. influenzae Not detected Normal NOT DETECTED The [facility] Comment on above: Performed By: #### B CID2 ####[facility] Zsieanjyea20[address] [place] [address]Dr. Farhat Leal IMP Resistant Gene Not Applicable Normal NOT DETECTED The [facility] Comment on above: Performed By: #### B CID2 ####[facility] Blwicfvevd4696 [place] [address]Dr. Farhat Leal K. oxytoca Not detected Normal NOT DETECTED The [facility] Comment on above: Performed By: #### B CID2 ####[facility] Oirbgsdaqe50[address] [place] [address]Dr. Farhat Leal K. pneumoniae Not detected Normal NOT DETECTED The [facility] Comment on above: Performed By: #### B CID2 ####[facility] Nlqyssrorp09[address] [place], [place] [address]Dr. Farhat Leal Klebsiella aerogenes Not detected Normal NOT DETECTED The [facility] Comment on above: Performed By: #### B CID2 ####[facility] Vdahlmksrg8677[address] [place], [place] [address]Dr. Farhat Leal KPC Resistant Gene Not Applicable Normal NOT DETECTED The [facility] Comment on above: Performed By: #### B CID2 ####[facility] Hssjfnnzdq930[address] [place], [place] [address]Dr. Farhat Elvis List. monocytogenes Not detected Normal NOT DETECTED [facility] Comment on above: Performed By: #### B CID2 ####[facility] Vftwbydyri5737[address] [place], [place] [address]Dr. Madelynlorri Elvis Mcr-1 Resistant Gene Not Applicable Normal NOT DETECTE D [facility] Comment on above: Performed By: #### B CID2 ####[facility] Wtgulipefk48[address] [place] [address]Dr. Yilan Leal mecA/C Not Applicable Normal NOT DETECTED The [facility] Comment on above: Performed By: #### B CID2 ####[facility] Cmraopvswa04[address] [place] [address]Dr. Farhat Leal mecA/C MREJ Detected Abnormal NOT DETECTED The [facility] Comment on above: Performed By: #### B CID2 ####[facility] Kvolervgqp854[address] [place], [place] [address]Dr. Farhat Leal N. meningitidis Not detected Normal NOT DETECTED The [facility] Comment on above: Performed By: #### B CID2 ####[facility] Owjnvayqjf1077[address] [place], [place] [address]Dr. Farhat Leal NDM Resistant Gene Not Applicable Normal NOT DETECTED The [facility] Comment on above: Performed By: #### B CID2 ####[facility] Fbkavaeqen6008[address] [place], [place] [address]Dr. Farhat Leal Oxa-48-like Not Applicable Normal NOT DETECTED The [facility] Comment on above: Performed By: #### B CID2 ####[facility] Mteqqohoav9866[address] [place], [place] [address]Dr. Farhat Leal Proteus Not detected Normal NOT DETECTED The [facility] Comment on above: Performed By: #### B CID2 ####[facility] Msxdtvyijm032137 [address] [place], [place] [address]Dr. Farhat Leal Pseud. aeruginosa Not detected Normal NOT DETECTED [facility] Comment on above: Performed By: #### B CID2 ####[facility] Otnzeatzmt3255[address] [place], [place] [address]Dr. Farhat Lela S. maltophilia Not detected Normal NOT DETECTED The [facility] Comment on above: Performed By: #### B CID2 ####[facility] Prffchbiep2032[address] [place], [place] [address]Dr. Farhat Leal Salmonella Not detected Normal NOT DETECTED The [facility] Comment on above: Performed By: #### B CID2 ####[facility] Accalrhbcj9727[address] [place], [place] [address]Dr. Farhat Leal Seratia marcescens Not detected Normal NOT DETECTED [facility] Comment on above: Performed By: #### B CID2 ####[facility] Cjtbmfbqhr069[address] [place], [place] [address]Dr. Farhat Leal Site: Rt Hand Normal [facility] Comment on above: Performed By: #### B CID2 ####[facility] Qvvyzwlyhy6876[address] [place], [place] [address]Dr. Farhat Leal Staph. aureus Detected Abnormal NOT DETECTED The [facility] Comment on above: Performed By: #### B CID2 ####[facility] Pebgtlkraz502[address] [place], [place] [address]Dr. Farhat Leal Staph. epidermidis Not detected Normal NOT DETECTED [facility] Comment on above: Performed By: #### B CID2 ####[facility] Nisuahyuji4906[address] [place], [place] [address]Dr. Farhat Leal Staph. lugdunensis Not detected Normal NOT DETECTED [facility] Comment on above: Performed By: #### B CID2 ####[facility] Biyqkilori91[address] [place], [place] [address]Dr. Farhat Leal Staphylococcus Detected Abnormal NOT DETECTED The [facility] Comment on above: Performed By: #### B CID2 ####[facility] Ezbprkwolf5470[address] [place], [place] [address]Dr. Farhat Leal Strep. agalactiae Not detected Normal NOT DETECTED [facility] Comment on above: Performed By: #### B CID2 ####[facility] Roxonragvw[address] [place], [place] [address]Dr. Farhat Leal Strep. pneumoniae Not detected Normal NOT DETECTED [facility] Comment on above: Performed By: #### B CID2 ####[facility] Orrwrwaaij[address] [place], [place] [address]Dr. Farhat Leal Strep. pyogenes Not detected Normal NOT DETECTED The [facility] Comment on above: Performed By: #### B CID2 ####[facility] Izlgduxxer7789[address] [place], [place] [address]Dr. Farhat Leal Streptococcus Not detected Normal NOT DETECTED The [facility] Comment on above: Performed By: #### B CID2 ####[facility] Ybrwtfghtu1484[address] [place], [place] [address]Dr. Farhat Leal Teodoro/B Resist. Gene Not Applicable Normal NOT DETECTED The [facility] Comment on above: Performed By: #### B CID2 ####[facility] Eeosprgvhv90[address] [place], [place] [address]Dr. Farhat Leal VIM Resistant Gene Not Applicable Normal NOT DETECTED The [facility] Comment on above: Performed By: #### B CID2 ####[facility] Vsqyleucvf500[address] [place] [address]Dr. Farhat Leal BNPon 11-23-2021 Natriuretic peptide B (Bld) [Mass/Vol] 93085.0 pg/mL Critically high <=1,800.0 [facility] Comment on above: Performed By: #### C MP, CMADM, BNP ####[facility] Aghndaihjz2[address] [place] [address]Dr. Farhat Leal CARDIAC AMANDA ADMITon 022 CK [Catalytic activity/Vol] 41 U/L Normal 39-308 The [facility] Comment on above: Performed By: #### C MP, CMADM, BNP ####[facility] Xebvsmqbqf6465 [place] [address]Dr. Farhat Leal CK.MB [Mass/Vol] 0.98 ng/mL Normal <=3.60 The [facility] Comment on above: Performed By: #### C MP, CMADM, BNP ####[facility] Ljosrgtnqu[address] [place] [address]Dr. lorri Leal HSTROP 30.1 pg/mL Normal 4.0-76.1 The [facility] Comment on above: Result Comment: CUT- OFF POINTS HAVE BEEN ESTABLISHED BASED ON THE FOURTH UNIVERSAL DEFINITIONS OF MYOCARDIALINFARCTION. THE UPPER REFERENCE LIMIT (URL) OF TROPONIN, DEFINED THE 99TH PERCENTILE OFcTnI DISTRIBUTION IN A REFERENCE POPULATION, HAS BEEN CONFIRMED THE DECISION THRESHOLDFOR ID DIAGNOSIS. Performed By: #### C MP, CMADM, BNP ####[facility] Utthrrlcrt[address] [place] [address]Dr. Farhat Leal VALERIA 160 ng/mL Critically high 16-96 The [facility] Comment on above: Performed By: #### C MP, CMADM, BNP ####[facility] Bxvxkahvhx7614 [place] [address]Dr. Farhat Leal CBC AUTO DIFFon 11-23-2021 BASO # 0.0 103/ul Normal 0.0-0.1 [facility] Comment on above: Performed By: #### C BC ####[facility] Rpbseitwhn[address] [place] [phone]. Farhat Leal Basophils/100 WBC (Bld) 0.2 % Normal 0.2-2.0 [facility] Comment on above: Performed By: #### C BC ####[facility] Vutjyqqjmd0[address] [place] [phone]. Farhat Leal EO # 0.0 103/ul Normal 0.0-0.7 [facility] Comment on above: Performed By: #### C BC ####[facility] Xhpmkngcij[address] [place], [place] [id number]. Farhat Leal Eosinophils/100 WBC (Bld) 0.1 % Critically low 0.9-7.0 [facility] Comment on above: Performed By: #### C BC ####[facility] Pvnbgtodqt2736[address] [place], [place] [address]Dr. Farhat Leal Erythrocyte distribution width (RBC) [Ratio] 13.4 % Normal 11.0-15.0 [facility] Comment on above: Performed By: #### C BC ####[facility] Wmpsqpvcxe[address] [place], [place] [id number]. Farhat Leal Hematocrit (Bld) [Volume fraction] 31.6 % Critically low 42.0-54.0 [facility] Comment on above: Performed By: #### C BC ####[facility] Ckvxmtbzyr[address] [place], [place] [id number]. Farhat Leal Hemoglobin (Bld) [Mass/Vol] 10.4 g/dL Critically low 14.0-18.0 [facility] Comment on above: Performed By: #### C BC ####[facility] Riujxuxqiu65[address] [place], [place] [address]Dr. Frahat Leal IG # 0.11 10e3/ul Critically high 0.00-0.03 [facility] Comment on above: Performed By: #### C BC ####[facility] Kqowdavqpq[address] [place], [place] [address]Dr. Farhat Leal IG % 0.7 % Critically high 0.0-0.5 The [facility] Comment on above: Performed By: #### C BC ####[facility] Ixcndolpsv[address] [place] [phone]. Farhat Leal LYMPH # 0.5 103/ul Critically low 1.2-3.8 The [facility] Comment on above: Performed By: #### C BC ####[facility] Zjncsejmnv360[address] [place] [phone]. Farhat Leal Lymphocytes/100 WBC (Bld) 2.8 % Critically low 20.5-60.0 [facility] Comment on above: Performed By: #### C BC ####[facility] Mkvsgieeph6[address] [place] [phone]. Farhat Leal MANUAL DIFF REQ NO Normal [facility] Comment on above: Performed By: #### C BC ####[facility] Yvmbtaajdl1711 [place] [phone]. Farhat Leal MCH (RBC) [Entitic mass] 29.8 pg Normal 25.9-34.0 [facility] Comment on above: Performed By: #### C BC ####[facility] Qnapcxisec2814 [place] [phone]. Farhat Leal MCHC (RBC) [Mass/Vol] 32.9 g/dL Normal 29.9-35.2 [facility] Comment on above: Performed By: #### C BC ####[facility] Kehjunsvfs39[address] [place] [phone] Leal MCV (RBC) [Entitic vol] 90.5 fL Normal 80.0-94.0 [facility] Comment on above: Performed By: #### C BC ####[facility] Fzgfuuexdp85[address] [place] [phone] Leal MONO # 1.3 103/ul Critically high 0.3-0.8 The [facility] Comment on above: Performed By: #### C BC ####[facility] Jihoisrqnb7973 [place] [phone]. Farhat Leal Monocytes/100 WBC (Bld) 8.3 % Normal 1.7-12.0 The [facility] Comment on above: Performed By: #### C BC ####[facility] Cplzkjruvk14[address] [place] [phone]. Farhat Leal NEUT # 13.9 103/ul Critically high 1.4-6.5 [facility] Comment on above: Performed By: #### C BC ####[facility] Aawfcbpgku4608 [place] [phone]. Farhat Leal Neutrophils/100 WBC (Bld) 87.9 % Critically high 43.0-75.0 [facility] Comment on above: Performed By: #### C BC ####[facility] Afocpmdplu5163 [place] [phone]. Farhat Leal Platelet mean volume (Bld) [Entitic vol] 9.3 fL Critically low 9.5-13.5 [facility] Comment on above: Performed By: #### C BC ####[facility] Hpcclfqcbm78[address] [place] [phone]. Farhat Leal PLT 390 103/ul Normal 150-450 [facility] Comment on above: Performed By: #### C BC ####[facility] Qtjwnoxsdi6331 [place] [phone]. Farhat Leal RBC 3.49 106/ul Critically low 4.70-6.10 The [facility] Comment on above: Performed By: #### C BC ####[facility] Acdkwwsgdg8503 [place] [phone]. Farhat Leal WBC 15.9 103/ul Critically high 4.0-11.0 The [facility] Comment on above: Performed By: #### C BC ####[facility] Wtebiywzdm44[address] [place] [phone]. Farhat Leal CT HEAD WO CONon 11-23-2021 CT HEAD WO CON Normal The [facility] CULTURE BLOODon 11-23-2021 Microscopic examination of blood, culture Culture Observations: NO GROWTH AT 5 DAYS. Normal [facility] Comment on above: Performed By: #### B LDCX2 ####[facility] Dxhdtnfnhq45[address] [place] [phone]. Farhat Leal Covid-19 PCR (CVDTBH)on SARS-CoV-2 (COVID-19) [...] for this test is supported by the [place] [employer] and Human Service's declaration that [...] VDTBH ####[facility] Lhqfkixqex[address] [place], [place] [address]Dr. Farhat Leal LACTATE/LACTIC ACIDon 2021 Lactate [Moles/Vol] 1.3 mmol/L Normal 0.4-1.9 [facility] Comment on above: Performed By: #### L ACT ####[facility] Pozxqoowlr6[address] [place], [place] [address]DrSkylar Leal Lactate [Moles/Vol] 1.3 mmol/L Normal 0.4-1.9 The [facility] Comment on above: Performed By: #### L ACT ####[facility] Swkgobepap8[address] [place], [place] [address]Dr. Farhat Leal POINT OF CARE GLUCOSEon Glucose [Mass/Vol] 252 mg/dL Critically high 74-106 [facility] Comment on above: Performed By: #### P OCGLUC ####[facility] Svemndrypx8[address] [place], [place] [address]Dr. Farhat Leal PROF 14(COMP METB)on 022 Albumin [Mass/Vol] 1.6 g/dL Critically low 3.4-5.0 [facility] Comment on above: Performed By: #### C MP, CMADM, BNP ####[facility] Zeheuhdsec[address] [place] [address]Dr. Farhat Leal Albumin/Globulin [Mass ratio] 0.4 {ratio} Normal [facility] Comment on above: Performed By: #### C MP, CMADM, BNP ####[facility] Tvvdwqwydh28[address] [place] [address]Dr. Farhat Leal ALP [Catalytic activity/Vol] 98 U/L Normal 46-116 [facility] Comment on above: Performed By: #### C MP, CMADM, BNP ####[facility] Pdbvozztxz5314 [place] [address]Dr. Farhat Leal ALT [Catalytic activity/Vol] 52 U/L Normal 16-63 [facility] Comment on above: Performed By: #### C MP, CMADM, BNP ####[facility] Cwfstyashk[address] [place] [address]Dr. Farhat Leal Anion gap [Moles/Vol] 9.8 mmol/L Normal [facility] Comment on above: Performed By: #### C MP, CMADM, BNP ####[facility] Ybdrawfzvr5919 [place] [address]Dr. Farhat Leal AST [Catalytic activity/Vol] 122 U/L Critically high 15-37 [facility] Comment on above: Performed By: #### C MP, CMADM, BNP ####[facility] Ochhzyhkbj15[address] [place] [address]Dr. Farhat Leal Bilirubin [Mass/Vol] 0.7 mg/dL Normal 0.2-1.0 [facility] Comment on above: Performed By: #### C MP, CMADM, BNP ####[facility] Oysssvkjni[address] [place] [address]Dr. Farhat Leal Calcium [Mass/Vol] 8.6 mg/dL Normal 8.5-10.1 [facility] Comment on above: Performed By: #### C MP, CMADM, BNP ####[facility] Gkmwxgdpxv9226 [place] [address]Dr. Farhat Leal Chloride [Moles/Vol] 95 mmol/L Critically low 98-107 [facility] Comment on above: Performed By: #### C MP, CMADM, BNP ####[facility] Vcfwvwghbn9106 [place] [address]Dr. Farhat Leal CO2 [Moles/Vol] 29.6 mmol/L Normal 21.0-32.0 [facility] Comment on above: Performed By: #### C MP, CMADM, BNP ####[facility] Uaglefvhwz24[address] [place], [place] [address]Dr. Farhat Leal Creatinine [Mass/Vol] 1.49 mg/dL Critically high 0.70-1.30 [facility] Comment on above: Performed By: #### C MP, CMADM, BNP ####[facility] Uxylrcnxeg[address] [place], [place] [address]Dr. Farhat Leal EGFR-AF CYMRO 55 mL/min/1.73m2 Critically low >=60 [facility] Comment on above: Performed By: #### C MP, CMADM, BNP ####[facility] Zpgdzpetyg[address] [place], [place] [address]Dr. Farhat Leal EGFR-NON AF CYMRO 46 mL/min/1.73m2 Critically low >=60 [facility] Comment on above: Performed By: #### C MP, CMADM, BNP ####[facility] Uxadcnjiuw9972 [place] [address]Dr. Farhat Leal Globulin (S) [Mass/Vol] 4.3 g/dL Normal [facility] Comment on above: Performed By: #### C MP, CMADM, BNP ####[facility] Ctpwcehfws[address] [place], [place] [address]Dr. Farhat Leal Glucose [Mass/Vol] 213 mg/dL Critically high 74-106 [facility] Comment on above: Performed By: #### C MP, CMADM, BNP ####[facility] Vlsglbsohq53[address] [place] [address]Dr. Farhat Leal Potassium [Moles/Vol] 4.4 mmol/L Normal 3.5-5.1 [facility] Comment on above: Performed By: #### C MP, CMADM, BNP ####[facility] Muuaqubvfi020[address] [place] [address]Dr. Farhat Leal Protein [Mass/Vol] 5.9 g/dL Critically low 6.4-8.2 Th [facility] Comment on above: Performed By: #### C MP, CMADM, BNP ####[facility] Lwevgaisda[address] [place], [place] [address]Dr. Farhat Leal Sodium [Moles/Vol] 130 mmol/L Critically low 136-145 [facility] Comment on above: Performed By: #### C MP, CMADM, BNP ####[facility] P[address] [place], [place] [address]Dr. Farhat Leal Urea nitrogen [Mass/Vol] 46.0 mg/dL Critically high 7.0-18.0 [facility] Comment on above: Performed By: #### C MP, CMADM, BNP ####[facility] Gqootqbvao[address] [place], [place] [address]Dr. Farhat Leal Urea nitrogen/Creatinine [Mass ratio] 30.9 mg/mg Normal [facility] Comment on above: Performed By: #### C MP, CMADM, BNP ####[facility] Wzdqtscsfy[address] [place], [place] [address]Dr. Farhat Leal PROTIMEon 11-23-2021 INR Coag (PPP) [Relative time] 2.55 {INR} Normal [facility] Comment on above: Performed By: #### P TT, PT ####[facility] Opqprbwroi6[address] [place], [place] [address]Dr. Farhat Leal INR GUIDELINES SEE BELOW Normal [facility] Comment on above: Result Comment: MALINA RED INR: 2.0 - 3.0 CONDITIONS NOT LISTED BELOW 2.5 - 3.5 FOR PROSTHETIC HEART VALVE REPLACEMENT 2.5 - 3.5 RECURRENT THROMBOSIS Performed By: #### P TT, PT ####[facility] Tzhvaefqmw[address] [place] [phone]. Farhat Leal PT Coag (PPP) [Time] 25.9 s Critically high 9.0-11.6 [facility] Comment on above: Performed By: #### P TT, PT ####[facility] Deifuwgjuz[address] [place], [place] [address]Dr. Farhat Leal PTTon 11-23-2021 aPTT Coag (Bld) [Time] 39.9 s Critically high 22.3-36. 2 [facility] Comment on above: Performed By: #### P TT, PT ####[facility] Trpvknyaeg8[address] [place], [place] [address]Dr. Farhat Leal XR CHEST 1 Von 11-23-2021 XR CHEST 1 V Normal [facility] XR HEEL RT 2Von 11-23-2021 XR HEEL RT 2V Normal [facility] XR FOOT RT MIN 3 VIEWSon XR FOOT RT MIN 3 VIEWS Normal [facility] US ARTERY LEG RTon US ARTERY LEG RT Normal [facility] CBC AUTO DIFFon 09-24-2021 BASO # 0.1 103/ul Normal 0.0-0.1 The [facility] Comment on above: Performed By: #### C BC ####[facility] Whzhizihct[address] [place], [place] [address]Dr. Farhat Elvis Basophils/100 WBC (Bld) 0.7 % Normal 0.2-2.0 [facility] Comment on above: Performed By: #### C BC ####[facility] Cetexnynke[address] [place], [place] [address]Dr. Farhat Leal EO # 0.3 103/ul Normal 0.0-0.7 [facility] Comment on above: Performed By: #### C BC ####[facility] Juqqsyinjg[address] [place], [place] [address]Dr. Farhat Leal Eosinophils/100 WBC (Bld) 3.9 % Normal 0.9-7.0 [facility] Comment on above: Performed By: #### C BC ####[facility] Czcvfcafro4865 [place] [phone]. Farhat Leal Erythrocyte distribution width (RBC) [Ratio] 12.6 % Normal 11.0-15.0 [facility] Comment on above: Performed By: #### C BC ####[facility] Wuprvqwlsc64[address] [place] [phone]. Farhat Leal Hematocrit (Bld) [Volume fraction] 38.9 % Critically low 42.0-54.0 [facility] Comment on above: Performed By: #### C BC ####[facility] Sdplavvood[address] [place] [address]Dr. Farhat Leal Hemoglobin (Bld) [Mass/Vol] 12.8 g/dL Critically low 14.0-18.0 [facility] Comment on above: Performed By: #### C BC ####[facility] Dmzofgmjgk8[address] [place] [address]Dr. Farhat Leal IG # 0.10 10e3/ul Critically high 0.00-0.03 [facility] Comment on above: Performed By: #### C BC ####[facility] Bwclfpswzk7[address] [place] [address]Dr. Farhat Leal IG % 1.2 % Critically high 0.0-0.5 [facility] Comment on above: Performed By: #### C BC ####[facility] Qjjlunqrgh6097 [place] [address]Dr. Farhat Leal LYMPH # 2.1 103/ul Normal 1.2-3.8 [facility] Comment on above: Performed By: #### C BC ####[facility] Rqayddlkns0472 [place] [address]Dr. Farhat Leal Lymphocytes/100 WBC (Bld) 25.9 % Normal 20.5-60.0 [facility] Comment on above: Performed By: #### C BC ####[facility] Xjjjkdttfj58[address] [place] [phone]. Farhat Leal MANUAL DIFF REQ NO Normal [facility] Comment on above: Performed By: #### C BC ####[facility] Ytqvllpigl2178 [place] [phone]. Farhat Leal MCH (RBC) [Entitic mass] 31.1 pg Normal 25.9-34.0 [facility] Comment on above: Performed By: #### C BC ####[facility] Ukhimyenow8178 [place] [phone]. Farhat Leal MCHC (RBC) [Mass/Vol] 32.9 g/dL Normal 29.9-35.2 [facility] Comment on above: Performed By: #### C BC ####[facility] Nbucgjrrjv6799 [place] [phone]. Farhat Leal MCV (RBC) [Entitic vol] 94.6 fL Critically high 80.0-94.0 [facility] Comment on above: Performed By: #### C BC ####[facility] Dxlfwnceyg0[address] [place], [place] [address]Dr. Farhat Leal MONO # 1.2 103/ul Critically high 0.3-0.8 [facility] Comment on above: Performed By: #### C BC ####[facility] Ykbndjgfys1773 [place] [address]Dr. Farhat Leal Monocytes/100 WBC (Bld) 14.1 % Critically high 1.7-12.0 [facility] Comment on above: Performed By: #### C BC ####[facility] Dzhyfxocts[address] [place], [place] [address]Dr. Farhat Leal NEUT # 4.4 103/ul Normal 1.4-6.5 [facility] Comment on above: Performed By: #### C BC ####[facility] Alfpgvazly6941 [place] [phone]. Farhat Leal Neutrophils/100 WBC (Bld) 54.2 % Normal 43.0-75.0 [facility] Comment on above: Performed By: #### C BC ####[facility] Z[address]ut[address]ubzs[address] [place], [place] [phone]. Farhat Leal Platelet mean volume (Bld) [Entitic vol] 9.9 fL Normal 9.5-13.5 [facility] Comment on above: Performed By: #### C BC ####[facility] Eeetnmmcor1838 [place] [phone]. Farhat Elvis PLT 224 103/ul Normal 150-450 [facility] Comment on above: Performed By: #### C BC ####[facility] Kntachjaaz4395 [place] [phone]. Farhat Elvis RBC 4.11 106/ul Critically low 4.70-6.10 [facility] Comment on above: Performed By: #### C BC ####[facility] Xeqzmtoasv6025 [place] [phone]. Farhat Elvis WBC 8.2 103/ul Normal 4.0-11.0 [facility] Comment on above: Performed By: #### C BC ####[facility] Ieziorytvs4836 [place] [phone]. Farhat Leal PROF CHEM 8 (BAS METB)on Anion gap [Moles/Vol] 9.6 mmol/L Normal [facility] Comment on above: Performed By: #### B MP ####[facility] Uqidlnfnre[address] [place], [place] [address]Dr. Farhat Leal Calcium [Mass/Vol] 8.6 mg/dL Normal 8.5-10.[address] [facility] Comment on above: Performed By: #### B MP ####[facility] Tsmecedpmz[address] [place], [place] [address]Dr. Farhat Leal Chloride [Moles/Vol] 94 mmol/L Critically low 98-107 [facility] Comment on above: Performed By: #### B MP ####[facility] Oomgxjfdwe[address] [place], [place] [address]Dr. Farhat Leal CO2 [Moles/Vol] 28.1 mmol/L Normal 21.0-32.0 [facility] Comment on above: Performed By: #### B MP ####[facility] Hhdyhkxiuj93[address] [place] [address]Dr. Farhat Leal Creatinine [Mass/Vol] 1.91 mg/dL Critically high 0.70-1.30 [facility] Comment on above: Performed By: #### B MP ####[facility] Puzhtudndz6361 [place] [phone]. Farhat Leal EGFR-AF CYMRO 42 mL/min/1.73m2 Critically low >=60 [facility] Comment on above: Performed By: #### B MP ####[facility] Zwdhzosryo0909 [place] [phone]. Farhat Leal EGFR-NON AF CYMRO 34 mL/min/1.73m2 Critically low >=60 [facility] Comment on above: Performed By: #### B MP ####[facility] Kaojhcgwvy5722 [place] [phone]. Farhat Leal Glucose [Mass/Vol] 314 mg/dL Critically high 74-106 T [facility] Comment on above: Performed By: #### B MP ####[facility] Otffxsspdf6692 [place] [phone]. Farhat Leal Potassium [Moles/Vol] 4.7 mmol/L Normal 3.5-5.1 [facility] Comment on above: Performed By: #### B MP ####[facility] Omnftsmmfq6622 [place] [phone]. Farhat Leal Sodium [Moles/Vol] 127 mmol/L Critically low 136-145 Th [facility] Comment on above: Performed By: #### B MP ####[facility] Nxixgniamz8601 [place] [phone] Leal Urea nitrogen [Mass/Vol] 79.0 mg/dL Critically high 7.0-18.0 [facility] Comment on above: Result Comment: repe ated Performed By: #### B MP ####[facility] Tqvbeneqjo0262 [place] [phone]. Farhat Lael Urea nitrogen/Creatinine [Mass ratio] 41.4 mg/mg Normal [facility] Comment on above: Performed By: #### B MP ####[facility] Gmpzkmbjyq5919 [place] [phone] Leal PTT HEPARIN MONITORon 2021 aPTT Coag (Bld) [Time] 42.7 s Normal 39.5-54.2 [facility] Comment on above: Performed By: #### P TTHEP ####[facility] Uffeknvygh0978 [place] [phone]. Farhat Leal aPTT Coag (Bld) [Time] 56.7 s Critically high 39.5-54. 2 [facility] Comment on above: Performed By: #### P TTHEP ####[facility] Fpclytdadh[address] [place], [place] [address]Dr. Farhat Elvis CBC AUTO DIFFon 09-23-2021 BASO # 0.1 103/ul Normal 0.0-0.1 [facility] Comment on above: Performed By: #### C BC ####[facility] Xwdwtdipqy3[address] [place], [place] [address]Dr. Farhat Leal Basophils/100 WBC (Bld) 0.6 % Normal 0.2-2.0 [facility] Comment on above: Performed By: #### C BC ####[facility] Akblmbvkts[address] [place], [place] [address]Dr. Madelynlorri Leal EO # 0.2 103/ul Normal 0.0-0.7 [facility] Comment on above: Performed By: #### C BC ####[facility] Mkdzrayscf9[address] [place], [place] [address]Dr. Farhat Leal Eosinophils/100 WBC (Bld) 2.6 % Normal 0.9-7.0 [facility] Comment on above: Performed By: #### C BC ####[facility] Wkttgsbwsj[address] [place], [place] [address]Dr. Madelynlorri Leal Erythrocyte distribution width (RBC) [Ratio] 12.4 % Normal 11.0-15.0 [facility] Comment on above: Performed By: #### C BC ####[facility] Yerkolsdzb[address] [place], [place] [address]Dr. Farhat Leal Hematocrit (Bld) [Volume fraction] 38.4 % Critically low 42.0-54.0 [facility] Comment on above: Performed By: #### C BC ####[facility] Imadndwmei2078 [place] [phone]. Farhat Leal Hemoglobin (Bld) [Mass/Vol] 12.8 g/dL Critically low 14.0-18.0 [facility] Comment on above: Performed By: #### C BC ####[facility] Daedacnhld5033 [place] [phone]. Farhat Leal IG # 0.06 10e3/ul Critically high 0.00-0.03 [facility] Comment on above: Performed By: #### C BC ####[facility] Ghtchgmdds1423 [place] [phone]. Farhat Leal IG % 0.8 % Critically high 0.0-0.5 [facility] Comment on above: Performed By: #### C BC ####[facility] Frcdrtdage92[address] [place], [place] [address]Dr. Farhat Leal LYMPH # 1.5 103/ul Normal 1.2-3.8 [facility] Comment on above: Performed By: #### C BC ####[facility] Lqodkfibuh[address] [place], [place] [address]Dr. Farhat Leal Lymphocytes/100 WBC (Bld) 19.7 % Critically low 20.5-60.0 [facility] Comment on above: Performed By: #### C BC ####[facility] Jqupdjxchi1185 [place] [address]Dr. Farhat Leal MANUAL DIFF REQ NO Normal [facility] Comment on above: Performed By: #### C BC ####[facility] Jenzflkisn[address] [place], [place] [address]Dr. Farhat Leal MCH (RBC) [Entitic mass] 31.6 pg Normal 25.9-34.0 [facility] Comment on above: Performed By: #### C BC ####[facility] Oynvxsasbi[address] [place], [place] [address]Dr. Farhat Leal MCHC (RBC) [Mass/Vol] 33.3 g/dL Normal 29.9-35.2 [facility] Comment on above: Performed By: #### C BC ####[facility] Pgvvrholhc6219 [place] [phone]. Farhat Leal MCV (RBC) [Entitic vol] 94.8 fL Critically high 80.0-94.0 [facility] Comment on above: Performed By: #### C BC ####[facility] Ppwnudpkub0990 [place] [phone]. Farhat Leal MONO # 1.0 103/ul Critically high 0.3-0.8 [facility] Comment on above: Performed By: #### C BC ####[facility] Osnfijfkvt4005 [place] [phone]. Farhat Leal Monocytes/100 WBC (Bld) 13.0 % Critically high 1.7-12.0 [facility] Comment on above: Performed By: #### C BC ####[facility] Efseiqekgn2[address] [place], [place] [address]Dr. Farhat Leal NEUT # 4.9 103/ul Normal 1.4-6.5 [facility] Comment on above: Performed By: #### C BC ####[facility] Qhaphhntah2038 [place] [address]Dr. Farhat Leal Neutrophils/100 WBC (Bld) 63.3 % Normal 43.0-75.0 [facility] Comment on above: Performed By: #### C BC ####[facility] Zhmkjczbnb3049 [place] [phone]. Farhat Leal Platelet mean volume (Bld) [Entitic vol] 10.7 fL Normal 9.5-13.5 [facility] Comment on above: Performed By: #### C BC ####[facility] Cyqfflpfrj1399 [place] [phone]. Farhat Leal PLT 205 103/ul Normal 150-450 [facility] Comment on above: Performed By: #### C BC ####[facility] Aveusgtued4420 [place] [phone]. Farhat Leal RBC 4.05 106/ul Critically low 4.70-6.10 [facility] Comment on above: Performed By: #### C BC ####[facility] Yqraposerv4059 [place] [phone]. Madelynlorri Elvis WBC 7.7 103/ul Normal 4.0-11.0 [facility] Comment on above: Performed By: #### C BC ####[facility] Imqayjmanw6599 [place] [address]Dr. Farhat Leal PROF CHEM 8 (BAS METB)on Anion gap [Moles/Vol] 15.5 mmol/L Normal [facility] Comment on above: Performed By: #### B MP ####[facility] Fgofiglxiy8072 [place] [address]Dr. Farhat Leal Calcium [Mass/Vol] 9.1 mg/dL Normal 8.5-10.[address] [facility] Comment on above: Performed By: #### B MP ####[facility] Rotgfbnsfg37[address] [place], [place] [address]Dr. Farhat Leal Chloride [Moles/Vol] 92 mmol/L Critically low 98-107 [facility] Comment on above: Performed By: #### B MP ####[facility] Trbwzgheaq4880[address] [place], [place] [address]Dr. Farhat Leal CO2 [Moles/Vol] 28.5 mmol/L Normal 21.0-32.0 [facility] Comment on above: Performed By: #### B MP ####[facility] Ggidimevdz3666[address] [place], [place] [address]Dr. Farhat Leal Creatinine [Mass/Vol] 1.84 mg/dL Critically high 0.70-1.30 [facility] Comment on above: Performed By: #### B MP ####[facility] Ilnsgcfyhf17[address] [place], [place] [address]Dr. Farhat Leal EGFR-AF CYMRO 44 mL/min/1.73m2 Critically low >=60 [facility] Comment on above: Performed By: #### B MP ####[facility] Xqchdrikmf9[address] [place], [place] [address]Dr. Farhat Leal EGFR-NON AF CYMRO 36 mL/min/1.73m2 Critically low >=60 [facility] Comment on above: Performed By: #### B MP ####[facility] Csagodwbbd5944 [place] [address]Dr. Madelynlorri Elvis Glucose [Mass/Vol] 267 mg/dL Critically high 74-106 T [facility] Comment on above: Performed By: #### B MP ####[facility] Yxtfyqlulv0641 [place] [address]Dr. Farhat Leal Potassium [Moles/Vol] 5.0 mmol/L Normal 3.5-5.1 [facility] Comment on above: Performed By: #### B MP ####[facility] Velppayqeo415[address] [place], [place] [address]Dr. Farhat Leal Sodium [Moles/Vol] 131 mmol/L Critically low 136-145 Th [facility] Comment on above: Performed By: #### B MP ####[facility] Wiegvuxutl1167[address] [place], [place] [address]Dr. Farhat Leal Urea nitrogen [Mass/Vol] 76.0 mg/dL Critically high 7.0-18.0 [facility] Comment on above: Performed By: #### B MP ####[facility] Nbppfpqkzz32[address] [place], [place] [address]Dr. Farhat Leal Urea nitrogen/Creatinine [Mass ratio] 41.3 mg/mg Normal [facility] Comment on above: Performed By: #### B MP ####[facility] Lnxdigmoiu7[address] [place], [place] [address]Dr. Farhat Leal PTT HEPARIN MONITORon 2021 aPTT Coag (Bld) [Time] 57.2 s Critically high 39.5-54. 2 [facility] Comment on above: Performed By: #### P TTHEP ####[facility] Hfmjsfzcif7[address] [place], [place] [address]Dr. Farhat Leal aPTT Coag (Bld) [Time] 74.7 s Critically high 39.5-54. 2 [facility] Comment on above: Result Comment: repe ated Performed By: #### P TTHEP ####[facility] Jtbwcnuotl9910[address] [place], [place] [address]Dr. Farhat Leal aPTT Coag (Bld) [Time] 45.5 s Normal 39.5-54.2 Th e [facility] Comment on above: Performed By: #### P TTHEP ####[facility] Imuzucoggn6712 [place] [phone]. Farhat Leal CBC AUTO DIFFon 09-22-2021 BASO # 0.1 103/ul Normal 0.0-0.1 [facility] Comment on above: Performed By: #### C BC ####[facility] Dapxgfiqxr9793 [place] [address]Dr. Farhat Leal Basophils/100 WBC (Bld) 0.7 % Normal 0.2-2.0 [facility] Comment on above: Performed By: #### C BC ####[facility] Fedjftvfxc96[address] [place], [place] [address]Dr. Farhat Leal EO # 0.3 103/ul Normal 0.0-0.7 [facility] Comment on above: Performed By: #### C BC ####[facility] Itowtnrkjm2530[address] [place], [place] [address]Dr. Farhat Leal Eosinophils/100 WBC (Bld) 3.2 % Normal 0.9-7.0 [facility] Comment on above: Performed By: #### C BC ####[facility] Efiipsvuwg5[address] [place], [place] [address]Dr. Farhat Leal Erythrocyte distribution width (RBC) [Ratio] 12.5 % Normal 11.0-15.0 [facility] Comment on above: Performed By: #### C BC ####[facility] Panmhmfzvm[address] [place], [place] [id number]. Farhat Leal Hematocrit (Bld) [Volume fraction] 40.5 % Critically low 42.0-54.0 [facility] Comment on above: Performed By: #### C BC ####[facility] Qhouxydsnr93[address] [place], [place] [address]Dr. Farhat Leal Hemoglobin (Bld) [Mass/Vol] 13.4 g/dL Critically low 14.0-18.0 [facility] Comment on above: Performed By: #### C BC ####[facility] Didpmwzioe9377 [place] [phone]. Farhat Leal IG # 0.11 10e3/ul Critically high 0.00-0.03 [facility] Comment on above: Performed By: #### C BC ####[facility] Dvjfvxtixl7619 [place] [phone]. Farhat Leal IG % 1.3 % Critically high 0.0-0.5 [facility] Comment on above: Performed By: #### C BC ####[facility] Winkflfmkn5345 [place] [address]Dr. Farhat Leal LYMPH # 1.7 103/ul Normal 1.2-3.8 [facility] Comment on above: Performed By: #### C BC ####[facility] Ehmxilwvtg9630 [place] [address]Dr. Farhat Leal Lymphocytes/100 WBC (Bld) 19.6 % Critically low 20.5-60.0 [facility] Comment on above: Performed By: #### C BC ####[facility] Ytgiuxjyks6552 [place] [address]Dr. Farhat Leal MANUAL DIFF REQ NO Normal [facility] Comment on above: Performed By: #### C BC ####[facility] Wuvsfkqzfa7961 [place] [address]Dr. Farhat Leal MCH (RBC) [Entitic mass] 31.1 pg Normal 25.9-34.0 [facility] Comment on above: Performed By: #### C BC ####[facility] Fqyzhvnoey[address] [place], [place] [address]Dr. Farhat Leal MCHC (RBC) [Mass/Vol] 33.1 g/dL Normal 29.9-35.2 [facility] Comment on above: Performed By: #### C BC ####[facility] Vmjrpmdyhh[address] [place], [place] [address]Dr. Farhat Leal MCV (RBC) [Entitic vol] 94.0 fL Normal 80.0-94.0 [facility] Comment on above: Performed By: #### C BC ####[facility] Ndtekidntx5434 [place] [phone]. Farhat Leal MONO # 1.1 103/ul Critically high 0.3-0.8 [facility] Comment on above: Performed By: #### C BC ####[facility] Wpexxlpxow1512 [place] [phone]. Farhat Leal Monocytes/100 WBC (Bld) 12.7 % Critically high 1.7-12.0 [facility] Comment on above: Performed By: #### C BC ####[facility] Hicyiqgdqy2027 [place] [phone]. Farhat Leal NEUT # 5.3 103/ul Normal 1.4-6.5 [facility] Comment on above: Performed By: #### C BC ####[facility] Ourlvdcovd1735 [place] [phone]. Farhat Leal Neutrophils/100 WBC (Bld) 62.5 % Normal 43.0-75.0 [facility] Comment on above: Performed By: #### C BC ####[facility] Jxobwhkxty4855 [place] [phone]. Farhat Leal Platelet mean volume (Bld) [Entitic vol] 10.1 fL Normal 9.5-13.5 [facility] Comment on above: Performed By: #### C BC ####[facility] Oipivifgdf2223 [place] [phone]. Farhat Leal PLT 220 103/ul Normal 150-450 [facility] Comment on above: Performed By: #### C BC ####[facility] Wxdwgrqjhc0333 [place] [phone]. Farhat Leal RBC 4.31 106/ul Critically low 4.70-6.10 [facility] Comment on above: Performed By: #### C BC ####[facility] Nmozvyqlgi8737 [place] [phone]. Farhat Leal WBC 8.4 103/ul Normal 4.0-11.0 [facility] Comment on above: Performed By: #### C BC ####[facility] Qfxdgucaoh6752 [place] [phone]. Farhat Leal PROF CHEM 8 (BAS METB)on Anion gap [Moles/Vol] 15.5 mmol/L Normal [facility] Comment on above: Performed By: #### B MP ####[facility] Mrrokdthlh26[address] [place] [address]Dr. Farhat Leal Calcium [Mass/Vol] 8.9 mg/dL Normal 8.5-10.[address] [facility] Comment on above: Performed By: #### B MP ####[facility] Diobxpecbl9710 [place] [address]Dr. Farhat Leal Chloride [Moles/Vol] 92 mmol/L Critically low 98-107 [facility] Comment on above: Performed By: #### B MP ####[facility] Yypvewpjoz73[address] [place], [place] [address]Dr. Farhat Leal CO2 [Moles/Vol] 25.7 mmol/L Normal 21.0-32.0 [facility] Comment on above: Performed By: #### B MP ####[facility] Lffdrpdifz9[address] [place], [place] [address]Dr. Farhat Leal Creatinine [Mass/Vol] 1.85 mg/dL Critically high 0.70-1.30 [facility] Comment on above: Performed By: #### B MP ####[facility] Xijhpnckwb2374[address] [place], [place] [address]Dr. Farhat Leal EGFR-AF CYMRO 43 mL/min/1.73m2 Critically low >=60 [facility] Comment on above: Performed By: #### B MP ####[facility] Lqekqtrbtv4150 [place] [address]Dr. Farhat Leal EGFR-NON AF CYMRO 36 mL/min/1.73m2 Critically low >=60 [facility] Comment on above: Performed By: #### B MP ####[facility] Ohwbfvnhco9404[address] [place], [place] [address]Dr. Farhat Leal Glucose [Mass/Vol] 410 mg/dL Critically high 74-106 [facility] Comment on above: Performed By: #### B MP ####[facility] Wfpdsubmyc4794 [place] [address]Dr. Farhat Leal Potassium [Moles/Vol] 5.2 mmol/L Critically high 3.5-5.1 [facility] Comment on above: Performed By: #### B MP ####[facility] Hvrdlpygto855[address] [place], [place] [address]Dr. Farhat Leal Sodium [Moles/Vol] 128 mmol/L Critically low 136-145 [facility] Comment on above: Performed By: #### B MP ####[facility] Pbsfntwccg2760[address] [place], [place] [address]Dr. Farhat Leal Urea nitrogen [Mass/Vol] 75.0 mg/dL Critically high 7.0-18.0 [facility] Comment on above: Performed By: #### B MP ####[facility] Cysxesrtbm5308[address] [place], [place] [address]Dr. Farhat Leal Urea nitrogen/Creatinine [Mass ratio] 40.5 mg/mg Normal [facility] Comment on above: Performed By: #### B MP ####[facility] Itxalazzhg8911[address] [place], [place] [address]Dr. Farhat Leal PTT HEPARIN MONITORon 2021 aPTT Coag (Bld) [Time] 51.2 s Normal 39.5-54.2 [facility] Comment on above: Performed By: #### P TTHEP ####[facility] Sucghlieyx854[address] [place], [place] [address]Dr. Farhat Leal aPTT Coag (Bld) [Time] 55.6 s Critically high 39.5-54. 2 [facility] Comment on above: Performed By: #### P TTHEP ####[facility] Zsibmlvjxz8720[address] [place], [place] [address]Dr. Farhat Leal aPTT Coag (Bld) [Time] 46.1 s Normal 39.5-54.2 [facility] Comment on above: Performed By: #### P TTHEP ####[facility] Vccltbhpug6880[address] [place], [place] [address]Dr. Farhat Elvis aPTT Coag (Bld) [Time] 53.8 s Normal 39.5-54.2 Th e [facility] Comment on above: Performed By: #### P TTHEP ####[facility] Ignhnjzmmr3973 [place] [address]Dr. Farhat Elvis CBC AUTO DIFFon 09-21-2021 BASO # 0.1 103/ul Normal 0.0-0.1 [facility] Comment on above: Performed By: #### C BC ####[facility] Vdafkcnmwh8368[address] [place], [place] [address]Dr. Farhat Leal Basophils/100 WBC (Bld) 0.8 % Normal 0.2-2.0 [facility] Comment on above: Performed By: #### C BC ####[facility] Gtxqdadbdf4047[address] [place], [place] [address]Dr. Farhat Leal EO # 0.4 103/ul Normal 0.0-0.7 [facility] Comment on above: Performed By: #### C BC ####[facility] Xqdbqaopfz6755[address] [place], [place] [address]Dr. Farhat Leal Eosinophils/100 WBC (Bld) 4.3 % Normal 0.9-7.0 [facility] Comment on above: Performed By: #### C BC ####[facility] Cpqphdotwy7057[address] [place], [place] [address]Dr. Farhat Leal Erythrocyte distribution width (RBC) [Ratio] 12.5 % Normal 11.0-15.0 [facility] Comment on above: Performed By: #### C BC ####[facility] Jbiyyqpbfq1460[address] [place], [place] [address]Dr. Farhat Leal Hematocrit (Bld) [Volume fraction] 40.8 % Critically low 42.0-54.0 [facility] Comment on above: Performed By: #### C BC ####[facility] Pbhmdoxzsu027[address] [place], [place] [address]Dr. Farhat Leal Hemoglobin (Bld) [Mass/Vol] 13.5 g/dL Critically low 14.0-18.0 [facility] Comment on above: Performed By: #### C BC ####[facility] Sscirscepq1141 [place] [phone]. Farhat Leal IG # 0.10 10e3/ul Critically high 0.00-0.03 [facility] Comment on above: Performed By: #### C BC ####[facility] Onvkhfoymj2801 [place] [phone]. Farhat Leal IG % 1.2 % Critically high 0.0-0.5 [facility] Comment on above: Performed By: #### C BC ####[facility] Ijkqlfmcjd4334 [place] [address]Dr. Farhat Leal LYMPH # 1.3 103/ul Normal 1.2-3.8 [facility] Comment on above: Performed By: #### C BC ####[facility] Grtpfdeybw6640 [place] [address]Dr. Farhat Leal Lymphocytes/100 WBC (Bld) 15.4 % Critically low 20.5-60.0 [facility] Comment on above: Performed By: #### C BC ####[facility] Qbfkilejoc7816 [place] [address]Dr. Farhat Leal MANUAL DIFF REQ NO Normal [facility] Comment on above: Performed By: #### C BC ####[facility] Bfabruffvh3481 [place] [address]Dr. Farhat Leal MCH (RBC) [Entitic mass] 31.0 pg Normal 25.9-34.0 [facility] Comment on above: Performed By: #### C BC ####[facility] Odedkujwmz[address] [place], [place] [id number]. Farhat Leal MCHC (RBC) [Mass/Vol] 33.1 g/dL Normal 29.9-35.2 [facility] Comment on above: Performed By: #### C BC ####[facility] Nwdjkiqaic4136 [place] [address]Dr. Farhat Leal MCV (RBC) [Entitic vol] 93.8 fL Normal 80.0-94.0 [facility] Comment on above: Performed By: #### C BC ####[facility] Wvqrqtepha9001 [place] [phone]. Farhat Leal MONO # 1.2 103/ul Critically high 0.3-0.8 [facility] Comment on above: Performed By: #### C BC ####[facility] Obzcxrvnsu6576 [place] [phone]. Farhat Leal Monocytes/100 WBC (Bld) 13.6 % Critically high 1.7-12.0 [facility] Comment on above: Performed By: #### C BC ####[facility] Keayerjews6454 [place] [phone]. Farhat Leal NEUT # 5.5 103/ul Normal 1.4-6.5 [facility] Comment on above: Performed By: #### C BC ####[facility] Tsbkrvxqhx8971 [place] [address]Dr. Farhat Leal Neutrophils/100 WBC (Bld) 64.7 % Normal 43.0-75.0 [facility] Comment on above: Performed By: #### C BC ####[facility] Zuozphcqrv9453 [place] [phone]. Farhat Leal Platelet mean volume (Bld) [Entitic vol] 9.8 fL Normal 9.5-13.5 [facility] Comment on above: Performed By: #### C BC ####[facility] Dbvkydukai6170 [place] [phone]. Farhat Leal PLT 206 103/ul Normal 150-450 [facility] Comment on above: Performed By: #### C BC ####[facility] Nuurhhxcdn3022 [place] [phone]. Farhat Leal RBC 4.35 106/ul Critically low 4.70-6.10 [facility] Comment on above: Performed By: #### C BC ####[facility] Zkdirspcfw8913 [place] [phone]. Farhat Leal WBC 8.4 103/ul Normal 4.0-11.0 [facility] Comment on above: Performed By: #### C BC ####[facility] Xfhhijkuzz1841 [place] [phone]. Farhat Leal PROF CHEM 8 (BAS METB)on Anion gap [Moles/Vol] 12.3 mmol/L Normal [facility] Comment on above: Performed By: #### B MP ####[facility] Mcyylrckxf9172 [place] [address]Dr. Farhat Leal Calcium [Mass/Vol] 8.6 mg/dL Normal 8.5-10.[address] [facility] Comment on above: Performed By: #### B MP ####[facility] Ccdnfsqtnx7493 [place] [address]Dr. Farhat Leal Chloride [Moles/Vol] 94 mmol/L Critically low 98-107 [facility] Comment on above: Performed By: #### B MP ####[facility] Ksrfkdvsbp5220 [place] [address]Dr. Farhat Leal CO2 [Moles/Vol] 30.8 mmol/L Normal 21.0-32.0 [facility] Comment on above: Performed By: #### B MP ####[facility] Vsjumrmfps[address] [place], [place] [address]Dr. Farhat Leal Creatinine [Mass/Vol] 1.99 mg/dL Critically high 0.70-1.30 [facility] Comment on above: Performed By: #### B MP ####[facility] Wroekgpkki186[address] [place], [place] [address]Dr. Farhat Leal EGFR-AF CYMRO 40 mL/min/1.73m2 Critically low >=60 [facility] Comment on above: Performed By: #### B MP ####[facility] Vztaidvonk8984 [place] [address]Dr. Farhat Leal EGFR-NON AF CYMRO 33 mL/min/1.73m2 Critically low >=60 [facility] Comment on above: Performed By: #### B MP ####[facility] Hdppaauwli[address] [place], [place] [address]Dr. Farhat Leal Glucose [Mass/Vol] 264 mg/dL Critically high 74-106 [facility] Comment on above: Performed By: #### B MP ####[facility] Bmobdflwrg2416 [place] [address]Dr. Farhat Elvis Potassium [Moles/Vol] 5.1 mmol/L Normal 3.5-5.1 [facility] Comment on above: Performed By: #### B MP ####[facility] Dflvmxaeci495[address] [place], [place] [address]Dr. Farhat Leal Sodium [Moles/Vol] 132 mmol/L Critically low 136-145 [facility] Comment on above: Performed By: #### B MP ####[facility] Qidoznjjcy827[address] [place], [place] [address]Dr. Madelynlorri Elvis Urea nitrogen [Mass/Vol] 72.0 mg/dL Critically high 7.0-18.0 [facility] Comment on above: Performed By: #### B MP ####[facility] Tldygvazon[address] [place], [place] [address]Dr. Farhat Leal Urea nitrogen/Creatinine [Mass ratio] 36.2 mg/mg Normal [facility] Comment on above: Performed By: #### B MP ####[facility] Xkyklehicw[address] [place], [place] [address]Dr. Farhat Elvis PTT HEPARIN MONITORon 2021 aPTT Coag (Bld) [Time] 45.3 s Normal 39.5-54.2 [facility] Comment on above: Performed By: #### P TTHEP ####[facility] Snggrwfbaz2626[address] [place], [place] [address]Dr. Madelynlorri Elvis aPTT Coag (Bld) [Time] 68.0 s Critically high 39.5-54. 2 [facility] Comment on above: Performed By: #### P TTHEP ####[facility] Regogvmesc22[address] [place], [place] [address]Dr. Farhat Leal aPTT Coag (Bld) [Time] 69.4 s Critically high 39.5-54. 2 [facility] Comment on above: Performed By: #### P TTHEP ####[facility] Scbiyhvhpx3074[address] [place], [place] [address]Dr. Farhat Elvis aPTT Coag (Bld) [Time] 53.5 s Normal 39.5-54.2 [facility] Comment on above: Performed By: #### P TTHEP ####[facility] Bdavqoaqtc5021 [place] [address]Dr. Farhat Elvis aPTT Coag (Bld) [Time] 126.9 s Critically high 39.5-54. 2 [facility] Comment on above: Performed By: #### P TTHEP ####[facility] Nhgzgmywnl2104 [place] [address]Dr. Farhat Leal CBC AUTO DIFFon 09-20-2021 BASO # 0.1 103/ul Normal 0.0-0.1 [facility] Comment on above: Performed By: #### C BC ####[facility] Wlfyigjces3189 [place] [address]Dr. Farhat Leal Basophils/100 WBC (Bld) 0.7 % Normal 0.2-2.0 [facility] Comment on above: Performed By: #### C BC ####[facility] Bsuladymru128[address] [place], [place] [address]Dr. Farhat Leal EO # 0.2 103/ul Normal 0.0-0.7 [facility] Comment on above: Performed By: #### C BC ####[facility] Bhgtfgetmo328[address] [place], [place] [address]Dr. Farhat Leal Eosinophils/100 WBC (Bld) 3.2 % Normal 0.9-7.0 [facility] Comment on above: Performed By: #### C BC ####[facility] Kfthtgtfda8327[address] [place], [place] [address]Dr. Farhat Leal Erythrocyte distribution width (RBC) [Ratio] 12.4 % Normal 11.0-15.0 [facility] Comment on above: Performed By: #### C BC ####[facility] Pzqjowreti9966 [place] [address]Dr. Farhat Leal Hematocrit (Bld) [Volume fraction] 40.1 % Critically low 42.0-54.0 [facility] Comment on above: Performed By: #### C BC ####[facility] Klvyelrrbk3213 [place] [phone]. Farhat Leal Hemoglobin (Bld) [Mass/Vol] 13.4 g/dL Critically low 14.0-18.0 [facility] Comment on above: Performed By: #### C BC ####[facility] Mlibuvykbq6939 [place] [address]Dr. Farhat Leal IG # 0.08 10e3/ul Critically high 0.00-0.03 [facility] Comment on above: Performed By: #### C BC ####[facility] Jggxkhbagf9252 [place] [address]Dr. Farhat Leal IG % 1.1 % Critically high 0.0-0.5 [facility] Comment on above: Performed By: #### C BC ####[facility] Yqelicbsss[address] [place], [place] [address]DrSkylar Farhat Leal LYMPH # 1.3 103/ul Normal 1.2-3.8 [facility] Comment on above: Performed By: #### C BC ####[facility] Shjkcfyaju0282 [place] [address]Dr. Farhat Leal Lymphocytes/100 WBC (Bld) 17.3 % Critically low 20.5-60.0 [facility] Comment on above: Performed By: #### C BC ####[facility] Wepjciqlut5331 [place] [address]Dr. Farhat Leal MANUAL DIFF REQ NO Normal [facility] Comment on above: Performed By: #### C BC ####[facility] Wnmpaxhjnm2452 [place] [address]Dr. Farhat Leal MCH (RBC) [Entitic mass] 31.2 pg Normal 25.9-34.0 [facility] Comment on above: Performed By: #### C BC ####[facility] Eghmsjxlfq8960 [place] [phone]. Farhat Leal MCHC (RBC) [Mass/Vol] 33.4 g/dL Normal 29.9-35.2 [facility] Comment on above: Performed By: #### C BC ####[facility] Zfwbsysuqz4829 [place] [phone]. Farhat Leal MCV (RBC) [Entitic vol] 93.3 fL Normal 80.0-94.0 [facility] Comment on above: Performed By: #### C BC ####[facility] Rlgzfincdo0931 [place] [phone]. Farhat Leal MONO # 0.9 103/ul Critically high 0.3-0.8 [facility] Comment on above: Performed By: #### C BC ####[facility] Tlpbgrlvel5421 [place] [address]Dr. Farhat Leal Monocytes/100 WBC (Bld) 12.4 % Critically high 1.7-12.0 [facility] Comment on above: Performed By: #### C BC ####[facility] Fqbdonjnen7[address] [place], [place] [address]Dr. Farhat Leal NEUT # 4.7 103/ul Normal 1.4-6.5 [facility] Comment on above: Performed By: #### C BC ####[facility] Talxorpdqk345[address] [place], [place] [address]Dr. Farhat Leal Neutrophils/100 WBC (Bld) 65.3 % Normal 43.0-75.0 [facility] Comment on above: Performed By: #### C BC ####[facility] Oferndynoe6376 [place] [address]Dr. Farhat Leal Platelet mean volume (Bld) [Entitic vol] 9.9 fL Normal 9.5-13.5 [facility] Comment on above: Performed By: #### C BC ####[facility] Fmyfhfwrcr1687 [place] [phone]. Farhat Leal PLT 180 103/ul Normal 150-450 [facility] Comment on above: Performed By: #### C BC ####[facility] Enhkminyxi9765 [place] [phone]. Madelynlorri Elvis RBC 4.30 106/ul Critically low 4.70-6.10 [facility] Comment on above: Performed By: #### C BC ####[facility] Camteydvbn5320 [place] [address]Dr. Farhat Leal WBC 7.2 103/ul Normal 4.0-11.0 [facility] Comment on above: Performed By: #### C BC ####[facility] Mmzqgsjnuk450[address] [place], [place] [address]Dr. Farhat Elvis PTT HEPARIN MONITORon 2021 aPTT Coag (Bld) [Time] 26.7 s Critically low 39.5-54.2 [facility] Comment on above: Performed By: #### P TTHEP ####[facility] Bkfeuygrat[address] [place], [place] [address]Dr. Farhat Elvis aPTT Coag (Bld) [Time] 121.0 s Critically high 39.5-54. 2 [facility] Comment on above: Performed By: #### P TTHEP ####[facility] Vxgltwfqdu37[address] [place], [place] [address]Dr. Farhat Elvis aPTT Coag (Bld) [Time] 27.6 s Critically low 39.5-54.2 [facility] Comment on above: Performed By: #### P TTHEP ####[facility] Bjswcffagm34[address] [place], [place] [address]Dr. Farhat Elvis aPTT Coag (Bld) [Time] 139.0 s Critically high 39.5-54. 2 [facility] Comment on above: Performed By: #### P TTHEP ####[facility] Mdnltpdnfl88[address] [place], [place] [address]Dr. Farhat Elvis CBC AUTO DIFFon 09-19-2021 BASO # 0.0 103/ul Normal 0.0-0.1 [facility] Comment on above: Performed By: #### C BC ####[facility] Ectmrelnnr[address] [place], [place] [address]Dr. Farhat Leal Basophils/100 WBC (Bld) 0.5 % Normal 0.2-2.0 [facility] Comment on above: Performed By: #### C BC ####[facility] Hmprzvcdtd7322 [place] [phone]. Farhat Leal EO # 0.2 103/ul Normal 0.0-0.7 [facility] Comment on above: Performed By: #### C BC ####[facility] Scshrmodzc9667 [place] [phone]. Farhat Leal Eosinophils/100 WBC (Bld) 2.6 % Normal 0.9-7.0 [facility] Comment on above: Performed By: #### C BC ####[facility] Qmbevghrfp7872 [place] [address]Dr. Farhat Leal Erythrocyte distribution width (RBC) [Ratio] 12.5 % Normal 11.0-15.0 [facility] Comment on above: Performed By: #### C BC ####[facility] Qexirgsfqp6[address] [place], [place] [address]Dr. Farhat Leal Hematocrit (Bld) [Volume fraction] 39.2 % Critically low 42.0-54.0 [facility] Comment on above: Performed By: #### C BC ####[facility] Pzjbbxzbjp7343 [place] [address]Dr. Farhat Leal Hemoglobin (Bld) [Mass/Vol] 13.3 g/dL Critically low 14.0-18.0 [facility] [facility] Comment on above: Performed By: #### C BC ####[facility] Xbwlpiiwxe44[address] [place] [address]Dr. Farhat Leal IG # 0.08 10e3/ul Critically high 0.00-0.03 The [facility] Comment on above: Performed By: #### C BC ####[facility] Jcmmvmpxjj6653 [place] [address]Dr. Farhat Leal IG % 0.9 % Critically high 0.0-0.5 The [facility] Comment on above: Performed By: #### C BC ####[facility] Rfvuuupoen7[address] [place], [place] [address]Dr. Farhat Leal LYMPH # 1.5 103/ul Normal 1.2-3.8 The [facility] Comment on above: Performed By: #### C BC ####[facility] Pyfzporzft5005 [place] [phone]. Farhat Leal Lymphocytes/100 WBC (Bld) 17.2 % Critically low 20.5-60.0 The [facility] Comment on above: Performed By: #### C BC ####[facility] Vtevkvtmuc7110 [place] [phone]. Madelynlorri Leal MANUAL DIFF REQ NO Normal [facility] Comment on above: Performed By: #### C BC ####[facility] Pmhoescool7921 [place] [phone]. Farhat Elvis MCH (RBC) [Entitic mass] 31.7 pg Normal 25.9-34.0 The [facility] Comment on above: Performed By: #### C BC ####[facility] Rhjgmguyst9[address] [place], [place] [address]Dr. Madelynlorri Leal MCHC (RBC) [Mass/Vol] 33.9 g/dL Normal 29.9-35.2 The [facility] Comment on above: Performed By: #### C BC ####[facility] Gockbomjzs[address] [place], [place] [address]Dr. Farhat Elvis MCV (RBC) [Entitic vol] 93.3 fL Normal 80.0-94.0 The [facility] Comment on above: Performed By: #### C BC ####[facility] Hkauqvwfjs0380 [place] [address]Dr. Farhat Leal MONO # 1.2 103/ul Critically high 0.3-0.8 The [facility] Comment on above: Performed By: #### C BC ####[facility] Ekidczqswz[address] [place], [place] [id number]. Madelynlorri Leal Monocytes/100 WBC (Bld) 13.7 % Critically high 1.7-12.0 The [facility] Comment on above: Performed By: #### C BC ####[facility] Prmbctutyp[address] [place], [place] [id number]. Farhat Leal NEUT # 5.5 103/ul Normal 1.4-6.5 The [facility] Comment on above: Performed By: #### C BC ####[facility] Ptbqrzhfll2615 [place] [phone]. Farhat Leal Neutrophils/100 WBC (Bld) 65.1 % Normal 43.0-75.0 [facility] Comment on above: Performed By: #### C BC ####[facility] Dqzhdewikz4275 [place] [phone]. Farhat Leal Platelet mean volume (Bld) [Entitic vol] 9.6 fL Normal 9.5-13.5 [facility] Comment on above: Performed By: #### C BC ####[facility] Numlztxetz8606 [place] [address]Dr. Farhat Leal PLT 163 103/ul Normal 150-450 [facility] Comment on above: Performed By: #### C BC ####[facility] Zfpdfjpgta0520 [place] [address]Dr. Farhat Leal RBC 4.20 106/ul Critically low 4.70-6.10 [facility] Comment on above: Performed By: #### C BC ####[facility] Ascpstjdeo4667[address] [place], [place] [address]Dr. Farhat Leal WBC 8.4 103/ul Normal 4.0-11.0 [facility] Comment on above: Performed By: #### C BC ####[facility] Murfnhraag5158 [place] [address]Dr. Farhat Leal POINT OF CARE GLUCOSEon Glucose [Mass/Vol] 300 mg/dL Critically high 74-106 [facility] Comment on above: Performed By: #### P OCGLUC ####[facility] Ycywreupyd37[address] [place], [place] [address]Dr. Farhat Leal POTASSIUMon 09-19-2021 Potassium [Moles/Vol] 4.9 mmol/L Normal 3.5-5.1 [facility] Comment on above: Performed By: #### K ####[facility] Xjvwjvzgjy36[address] [place], [place] [address]Dr. Farhat Leal PTT HEPARIN MONITORon 2021 aPTT Coag (Bld) [Time] 23.4 s Critically low 39.5-54.2 The [facility] Comment on above: Result Comment: repe ated Performed By: #### P TTHEP ####[facility] Zidcetihwz9[address] [place], [place] [address]Dr. Farhat Leal aPTT Coag (Bld) [Time] 101.2 s Critically high 39.5-54. 2 The [facility] Comment on above: Performed By: #### P TTHEP ####[facility] Vglpupapvt005[address] [place], [place] [address]Dr. Farhat Leal aPTT Coag (Bld) [Time] 81.0 s Critically high 39.5-54. 2 The [facility] Comment on above: Result Comment: Test Repeated. Critical Value Verified Performed By: #### P TTHEP ####[facility] Cdxopqgosa7[address] [place], [place] [address]Dr. Farhat Elvis CBC AUTO DIFFon 09-18-2021 BASO # 0.0 103/ul Normal 0.0-0.1 [facility] Comment on above: Performed By: #### C BC ####[facility] Iomakuhqor304[address] [place], [place] [address]Dr. Madelynlorri Leal Basophils/100 WBC (Bld) 0.4 % Normal 0.2-2.0 The [facility] Comment on above: Performed By: #### C BC ####[facility] Cvqitomnpr18[address] [place], [place] [address]Dr. Farhat Leal EO # 0.1 103/ul Normal 0.0-0.7 The [facility] Comment on above: Performed By: #### C BC ####[facility] Zbcshjckxe3436[address] [place], [place] [address]Dr. Madelynlorri Leal Eosinophils/100 WBC (Bld) 0.8 % Critically low 0.9-7.0 The [facility] Comment on above: Performed By: #### C BC ####[facility] Goktjmnajb69[address] [place], [place] [address]Dr. Farhat Leal Erythrocyte distribution width (RBC) [Ratio] 12.4 % Normal 11.0-15.0 The [facility] Comment on above: Performed By: #### C BC ####[facility] Prdokcrpxl[address] [place] [address]Dr. Farhat Leal Hematocrit (Bld) [Volume fraction] 41.7 % Critically low 42.0-54.0 [facility] Comment on above: Performed By: #### C BC ####[facility] Kzjuuhewss59[address] [place] [address]Dr. Farhat Leal Hemoglobin (Bld) [Mass/Vol] 14.1 g/dL Normal 14.0-18.0 [facility] Comment on above: Performed By: #### C BC ####[facility] Zlabbvmzkv[address] [place], [place] [address]Dr. Madelynlorri Elvis IG # 0.06 10e3/ul Critically high 0.00-0.03 [facility] Comment on above: Performed By: #### C BC ####[facility] Kshwaagioo4864[address] [place], [place] [address]DrSkylar Leal IG % 0.6 % Critically high 0.0-0.5 [facility] Comment on above: Performed By: #### C BC ####[facility] Oregwmkkvi6511[address] [place], [place] [address]DrSkylar Farhat Elvis LYMPH # 0.6 103/ul Critically low 1.2-3.8 [facility] Comment on above: Performed By: #### C BC ####[facility] Vcqadbfpof5[address] [place], [place] [address]DrSkylar Leal Lymphocytes/100 WBC (Bld) 6.5 % Critically low 20.5-60.0 [facility] Comment on above: Performed By: #### C BC ####[facility] Phygzhedgc6894[address] [place], [place] [address]DrSkylar Leal MANUAL DIFF REQ NO Normal [facility] Comment on above: Performed By: #### C BC ####[facility] Xqcwwdfdlk7066[address] [place], [place] [address]DrSkylar Leal MCH (RBC) [Entitic mass] 31.6 pg Normal 25.9-34.0 [facility] Comment on above: Performed By: #### C BC ####[facility] Zjroniqown1385 [place] [phone]. Farhat Elvis MCHC (RBC) [Mass/Vol] 33.8 g/dL Normal 29.9-35.2 The [facility] Comment on above: Performed By: #### C BC ####[facility] Mlmvrfnbac0358 [place] [phone]. Madelynlorri Elvis MCV (RBC) [Entitic vol] 93.5 fL Normal 80.0-94.0 The [facility] Comment on above: Performed By: #### C BC ####[facility] Sqpssuucxm8131 [place] [address]Dr. Farhat Leal MONO # 1.0 103/ul Critically high 0.3-0.8 The [facility] Comment on above: Performed By: #### C BC ####[facility] Qrrzdpqcri9[address] [place], [place] [address]Dr. Farhat Leal Monocytes/100 WBC (Bld) 10.4 % Normal 1.7-12.0 [facility] Comment on above: Performed By: #### C BC ####[facility] Uevoxfgbph14[address] [place], [place] [address]Dr. Farhat Leal NEUT # 7.8 103/ul Critically high 1.4-6.5 The [facility] Comment on above: Performed By: #### C BC ####[facility] Ierhsrfgag9[address] [place], [place] [address]Dr. Farhat Leal Neutrophils/100 WBC (Bld) 81.3 % Critically high 43.0-75.0 The [facility] Comment on above: Performed By: #### C BC ####[facility] Nydhcyvbrr[address] [place], [place] [address]Dr. Farhat Leal Platelet mean volume (Bld) [Entitic vol] 9.9 fL Normal 9.5-13.5 The [facility] Comment on above: Performed By: #### C BC ####[facility] Jccanuadpy[address] [place], [place] [address]Dr. Farhat Leal PLT 169 103/ul Normal 150-450 The [facility] Comment on above: Performed By: #### C BC ####[facility] Ikrdligzez9700 [place] [phone]. Farhat Elvis RBC 4.46 106/ul Critically low 4.70-6.10 The [facility] Comment on above: Performed By: #### C BC ####[facility] Ojptjsoqhe7113 [place] [phone]. Madelynlorri Leal WBC 9.6 103/ul Normal 4.0-11.0 The [facility] Comment on above: Performed By: #### C BC ####[facility] Nrcndoiiwk5740 [place] [phone]. Farhat Elvis BASO # 0.0 103/ul Normal 0.0-0.1 The [facility] Comment on above: Performed By: #### C BC ####[facility] Lyaheabpfx1902 [place] [phone]. Farhat Leal Basophils/100 WBC (Bld) 0.4 % Normal 0.2-2.0 [facility] Comment on above: Performed By: #### C BC ####[facility] Tzrlervrud7804 [place] [phone]. Madelynlorri Leal EO # 0.1 103/ul Normal 0.0-0.7 [facility] Comment on above: Performed By: #### C BC ####[facility] Lxqfebhtum4051 [place] [phone]. Farhat Leal Eosinophils/100 WBC (Bld) 1.1 % Normal 0.9-7.0 The [facility] Comment on above: Performed By: #### C BC ####[facility] Lujhmauamm2803 [place] [phone]. Madelynlorri Leal Erythrocyte distribution width (RBC) [Ratio] 12.6 % Normal 11.0-15.0 The [facility] Comment on above: Performed By: #### C BC ####[facility] Bmpdtahywn8872 [place] [phone]. Farhat Leal Hematocrit (Bld) [Volume fraction] 40.8 % Critically low 42.0-54.0 The [facility] Comment on above: Performed By: #### C BC ####[facility] Liczvptysx1305 [place] [address]Dr. Farhat Leal Hemoglobin (Bld) [Mass/Vol] 13.6 g/dL Critically low 14.0-18.0 [facility] Comment on above: Performed By: #### C BC ####[facility] Itwwlmilrq3342 [place] [address]Dr. Farhat Leal IG # 0.08 10e3/ul Critically high 0.00-0.03 [facility] Comment on above: Performed By: #### C BC ####[facility] Kqxphdbwng4978 [place] [address]Dr. Farhat Leal IG % 0.9 % Critically high 0.0-0.5 The [facility] Comment on above: Performed By: #### C BC ####[facility] Vgyfoqlkwi[address] [place], [place] [address]Dr. Farhat Elvis LYMPH # 0.8 103/ul Critically low 1.2-3.8 [facility] Comment on above: Performed By: #### C BC ####[facility] Uhnegtxexj5909 [place] [address]Dr. Farhat Elvis Lymphocytes/100 WBC (Bld) 8.7 % Critically low 20.5-60.0 [facility] Comment on above: Performed By: #### C BC ####[facility] Wpdjnfsjcc3985 [place] [address]Dr. Farhat Elvis MANUAL DIFF REQ NO Normal [facility] Comment on above: Performed By: #### C BC ####[facility] Dsygipvnvv9222 [place] [phone]. Farhat Leal MCH (RBC) [Entitic mass] 31.6 pg Normal 25.9-34.0 The [facility] Comment on above: Performed By: #### C BC ####[facility] Mzydmttchx1693 [place] [address]Dr. Farhat Elvis MCHC (RBC) [Mass/Vol] 33.3 g/dL Normal 29.9-35.2 The [facility] Comment on above: Performed By: #### C BC ####[facility] Xbyvkpdxzu0787 [place] [phone] Farhat Leal MCV (RBC) [Entitic vol] 94.9 fL Critically high 80.0-94.0 The [facility] Comment on above: Performed By: #### C BC ####[facility] Ruyaqqbgzh5740 [place] [phone] Farhat Elvis MONO # 1.0 103/ul Critically high 0.3-0.8 [facility] Comment on above: Performed By: #### C BC ####[facility] Bgfbzamemz4778 [place] [address]Dr. Madelynlorri Leal Monocytes/100 WBC (Bld) 11.3 % Normal 1.7-12.0 The [facility] Comment on above: Performed By: #### C BC ####[facility] Jasjcgmswd3509 [place] [address]Dr. Madelynlorri Leal NEUT # 6.9 103/ul Critically high 1.4-6.5 [facility] Comment on above: Performed By: #### C BC ####[facility] Rdmvlufiqj3461 [place] [address]Dr. Farhat Elvis Neutrophils/100 WBC (Bld) 77.6 % Critically high 43.0-75.0 The [facility] Comment on above: Performed By: #### C BC ####[facility] Kndlcingpq9327 [place] [address]Dr. Farhat Elvis Platelet mean volume (Bld) [Entitic vol] 9.7 fL Normal 9.5-13.5 The [facility] Comment on above: Performed By: #### C BC ####[facility] Gghzigdzpg8970 [place] [phone]. Farhat Leal PLT 171 103/ul Normal 150-450 The [facility] Comment on above: Performed By: #### C BC ####[facility] Fmgllwsvqj1021 [place] [phone] Leal RBC 4.30 106/ul Critically low 4.70-6.10 The [facility] Comment on above: Performed By: #### C BC ####[facility] Sjpctwgmhu0850 [place], [place] [address]Dr. Farhat Leal WBC 8.9 103/ul Normal 4.0-11.0 [facility] Comment on above: Performed By: #### C BC ####[facility] Hnqubpespd9352 [place], [place] [address]Jd. Farhat Leal Covid-19 PCR (CVDTBH)on SARS-CoV-2 (COVID-19) [...] for this test is supported by the [employer]st of Health and Human Service's declaration that [...] VDTBH ####[facility] Nnryrjsoxm0433 [place] [phone]. Farhat Leal PROF 14(COMP METB)on 022 Albumin [Mass/Vol] 2.6 g/dL Critically low 3.4-5.0 Th e [facility] Comment on above: Performed By: #### C MP ####[facility] Xqqkhsqsrh9209 [place], [place] [address]Xm. Farhat Leal Albumin/Globulin [Mass ratio] 0.7 {ratio} Normal The [facility] Comment on above: Performed By: #### C MP ####[facility] Xwlphadxak6620 [place] [phone]. Farhat Leal ALP [Catalytic activity/Vol] 88 U/L Normal 46-116 [facility] Comment on above: Performed By: #### C MP ####[facility] Zzmgcfwwdi0918 [place] [phone]. Farhat Leal ALT [Catalytic activity/Vol] 15 U/L Critically low 16-63 [facility] Comment on above: Performed By: #### C MP ####[facility] Qjsdqztfhk4526 [place] [phone]. Farhat Leal Anion gap [Moles/Vol] 11.7 mmol/L Normal [facility] Comment on above: Performed By: #### C MP ####[facility] Mnavgwwwia0032 [place] [address]Dr. Farhat Leal AST [Catalytic activity/Vol] 25 U/L Normal 15-37 [facility] Comment on above: Performed By: #### C MP ####[facility] Shbznskgpe2534 [place] [address]Dr. Farhat Leal Bilirubin [Mass/Vol] 0.6 mg/dL Normal 0.2-1.0 [facility] Comment on above: Performed By: #### C MP ####[facility] Oolwepuina036[address] [place] [address]Dr. Farhat Leal Calcium [Mass/Vol] 8.9 mg/dL Normal 8.5-10.[address] [facility] Comment on above: Performed By: #### C MP ####[facility] Zncypxkuaw2644 [place] [phone]. Farhat Leal Chloride [Moles/Vol] 93 mmol/L Critically low 98-107 [facility] Comment on above: Performed By: #### C MP ####[facility] Ltiwotcivx3451 [place] [address]Dr. Farhat Leal CO2 [Moles/Vol] 28.9 mmol/L Normal 21.0-32.0 [facility] Comment on above: Performed By: #### C MP ####[facility] Scrffkvobr1938 [place], [place] [address]Ax. Farhat Leal Creatinine [Mass/Vol] 2.09 mg/dL Critically high 0.70-1.30 [facility] Comment on above: Performed By: #### C MP ####[facility] Fhskbghqcl7655 [place], [place] [address]Uz. Farhat Leal EGFR-AF CYMRO 38 mL/min/1.73m2 Critically low >=60 [facility] Comment on above: Performed By: #### C MP ####[facility] Msatjyuiop1194 [place] [phone]. Farhat Leal EGFR-NON AF CYMRO 31 mL/min/1.73m2 Critically low >=60 [facility] Comment on above: Performed By: #### C MP ####[facility] Mgocihzwwp1808 [place] [phone]. Farhat Leal Globulin (S) [Mass/Vol] 3.7 g/dL Normal [facility] Comment on above: Performed By: #### C MP ####[facility] Rpmzlxrgtp3282 [place] [phone]. Farhat Leal Glucose [Mass/Vol] 214 mg/dL Critically high 74-106 T [facility] Comment on above: Performed By: #### C MP ####[facility] Plioqrbnoz4750 [place] [phone]. Farhat Leal Potassium [Moles/Vol] 5.6 mmol/L Critically high 3.5-5.1 [facility] Comment on above: Performed By: #### C MP ####[facility] Rzjhtlsvwg2828 [place] [phone]. Farhat Leal Protein [Mass/Vol] 6.3 g/dL Critically low 6.4-8.2 Th [facility] Comment on above: Performed By: #### C MP ####[facility] Xijnuvrhlr4873 [place] [phone]. Farhta Leal Sodium [Moles/Vol] 128 mmol/L Critically low 136-145 Th [facility] Comment on above: Performed By: #### C MP ####[facility] Gvdzljwwkj0921 [place] [phone]. Farhat Leal Urea nitrogen [Mass/Vol] 65.0 mg/dL Critically high 7.0-18.0 [facility] Comment on above: Performed By: #### C MP ####[facility] Rgpuuiowls2417 [place] [phone]. Farhat Elvis Urea nitrogen/Creatinine [Mass ratio] 31.1 mg/mg Normal [facility] Comment on above: Performed By: #### C MP ####[facility] Btpmgktech[address] [place], [place] [address]Dr. Farhat Leal Albumin [Mass/Vol] 2.5 g/dL Critically low 3.4-5.0 Th [facility] Comment on above: Performed By: #### T MYRIAM, CMP ####[facility] Pmeaisyuyb[address] [place], [place] [address]Dr. Farhat Leal Albumin/Globulin [Mass ratio] 0.7 {ratio} Normal [facility] Comment on above: Performed By: #### T MYRIAM, CMP ####[facility] Rmutdxqqpq364[address] [place], [place] [address]Dr. Farhat Elvis ALP [Catalytic activity/Vol] 83 U/L Normal 46-116 [facility] Comment on above: Performed By: #### T MYRIAM, CMP ####[facility] Xsxusbiujt09[address] [place], [place] [address]Dr. Farhat Leal ALT [Catalytic activity/Vol] 16 U/L Normal 16-63 The [facility] Comment on above: Performed By: #### T SH, CMP ####[facility] Fxkticgkfw7094[address] [place], [place] [address]Dr. Madelynlorri Elvis Anion gap [Moles/Vol] 9.7 mmol/L Normal [facility] Comment on above: Performed By: #### T SH, CMP ####[facility] Qbwhbnjfku04[address] [place], [place] [address]Dr. Farhat Leal AST [Catalytic activity/Vol] 27 U/L Normal 15-37 [facility] Comment on above: Performed By: #### T MYRIAM, CMP ####[facility] Txjynotwpz7609 [place] [address]Dr. Farhat Leal Bilirubin [Mass/Vol] 0.5 mg/dL Normal 0.2-1.0 The [facility] Comment on above: Performed By: #### T SH, CMP ####[facility] Nzbqwofcxg04[address] [place], [place] [address]Dr. Farhat Leal Calcium [Mass/Vol] 8.8 mg/dL Normal 8.5-10.[address] [facility] Comment on above: Performed By: #### T SH, CMP ####[facility] Vjskiklrst25[address] [place], [place] [address]Dr. Farhat Leal Chloride [Moles/Vol] 95 mmol/L Critically low 98-107 [facility] Comment on above: Performed By: #### T SH, CMP ####[facility] Zoarwwjhph[address] [place], [place] [address]Dr. Farhat Leal CO2 [Moles/Vol] 30.5 mmol/L Normal 21.0-32.0 [facility] Comment on above: Performed By: #### T SH, CMP ####[facility] [facility] Gjpobynavo[address] [place], [place] [address]Dr. Farhat Leal Creatinine [Mass/Vol] 2.18 mg/dL Critically high 0.70-1.30 [facility] Comment on above: Performed By: #### T SH, CMP ####[facility] [address] [place], [place] [address]Dr. Farhat Leal EGFR-AF CYMRO 36 mL/min/1.73m2 Critically low >=60 [facility] Comment on above: Performed By: #### T SH, CMP ####[facility] [address] [place], [place] [address]Dr. Farhat Leal EGFR-NON AF CYMRO 30 mL/min/1.73m2 Critically low >=60 [facility] Comment on above: Performed By: #### T SH, CMP ####[facility] [address] [place], [place] [address]Dr. Farhat Leal Globulin (S) [Mass/Vol] 3.5 g/dL Normal [facility] Comment on above: Performed By: #### T SH, CMP ####[facility] Ytdjavxis[address] [place], [place] [address]Dr. Farhat Leal Glucose [Mass/Vol] 141 mg/dL Critically high 74-106 T [facility] Comment on above: Performed By: #### T SH, CMP ####[facility] O[address] [place], [place] [address]Dr. Farhat Leal Potassium [Moles/Vol] 5.2 mmol/L Critically high 3.5-5.1 [facility] Comment on above: Performed By: #### T SH, CMP ####[facility] [address] [place], [place] [address]Dr. Farhat Leal Protein [Mass/Vol] 6.0 g/dL Critically low 6.4-8.2 Th [facility] Comment on above: Performed By: #### T SH, CMP ####[facility] V[address] [place], [place] [address]Dr. Farhat Leal Sodium [Moles/Vol] 130 mmol/L Critically low 136-145 Th [facility] Comment on above: Performed By: #### T SH, CMP ####[facility] F[address] [place], [place] [address]Dr. Farhat Leal Urea nitrogen [Mass/Vol] 63.0 mg/dL Critically high 7.0-18.0 [facility] Comment on above: Performed By: #### T SH, CMP ####[facility] [address] [place], [place] [address]Dr. Farhat Leal Urea nitrogen/Creatinine [Mass ratio] 28.9 mg/mg [facility] Comment on above: Performed By: #### T SH, CMP ####[facility] Shap[address]cl[address] [place], [place] [address]Dr. Farhat Leal PROTIMEon 09-18-2021 INR Coag (PPP) [Relative time] 1.06 {INR} Normal [facility] Comment on above: Performed By: #### P T, PTT ####[facility] Zxonqucmph[address] [place], [place] [address]Dr. Farhat Leal INR GUIDELINES SEE BELOW Normal [facility] Comment on above: Result Comment: MALINA RED INR: 2.0 - 3.0 CONDITIONS NOT LISTED BELOW 2.5 - 3.5 FOR PROSTHETIC HEART VALVE REPLACEMENT 2.5 - 3.5 RECURRENT THROMBOSIS Performed By: #### P T, PTT ####[facility] [address] [place] [address]Dr. Farhat Leal PT Coag (PPP) [Time] 11.4 s Normal 9.0-11.6 [facility] Comment on above: Performed By: #### P T, PTT ####[facility] [address] [place] [address]Dr. Farhat Leal PTTon 09-18-2021 aPTT Coag (Bld) [Time] 27.9 s Normal 22.3-36.2 [facility] Comment on above: Performed By: #### P T, PTT ####[facility] [address] [place] [address]Dr. Farhat Leal TSHon 09-18-2021 TSH 7.099 uIU/mL Critically high 0.358-3.[address] [facility] Comment on above: Performed By: #### T SH, CMP ####[facility] [address] [place] [address]Dr. Farhat Leal US SALOME DOP LEG RTon 09-19-19 US SALOME DOP LEG RT Normal [facility] XR CHEST 1 Von 09-18-2021 XR CHEST 1 V Normal [facility] XR HIP RT 2 3V W PELVISon XR HIP RT 2 3V W PELVIS Normal [facility] Vital Signs Date Time Vital Sign Value Performing Clinician Facility 03-18-2023 13:37-0500 Body temperature 98.01 [degF] [place] Directr Work Phone: [facility] 03-18-2023 13:37-0500 Diastolic blood pressure 64 mm[Hg] [place] Directr Work Phone: [facility] 03-18-2023 13:37-0500 Heart rate 72 /min Ni Petznick DO Work Phone: [facility] 03-18-2023 13:37-0500 SaO2% (BldA) [Mass fraction] 98 % Ni Whiteznick DO Work Phone: [facility] 03-18-2023 13:37-0500 Systolic blood pressure 118 mm[Hg] Ni Sandhuick DO Work Phone: [facility] 07-20-2022 13:35-0400 Body temperature 97.4 [degF] DO Devon Ball Work Phone: [facility] 07-20-2022 13:35-0400 Diastolic blood pressure 50 mm[Hg] DO Devon Ball Work Phone: [facility] 07-20-2022 13:35-0400 Heart rate 67 /min DO Devon Ball Work Phone: [facility] 07-20-2022 13:35-0400 Respiratory rate 20 /min DO Devon Ball Work Phone: [facility] 07-20-2022 13:35-0400 Systolic blood pressure 98 mm[Hg] DO Devon Ball Work Phone: [facility] 06-29-2022 14:46-0400 Body height 193.04 cm DO Devon Ball Work Phone: [facility] 02-26-2022 13:11-0500 Body temperature 96.6 [degF] Hina Peterson MD Work Phone: [facility] 02-26-2022 13:11-0500 Diastolic blood pressure 75 mm[Hg] Hina Peterson MD Work Phone: [facility] 02-26-2022 13:11-0500 Heart rate 75 /min Hina Peterson MD Work Phone: [facility] 02-26-2022 13:11-0500 Systolic blood pressure 88 mm[Hg] Hina Peterson MD Work Phone: [facility] 02-05-2022 08:29-0500 Body temperature 96.69 [degF] [facility] Work Phone: [facility] 02-05-2022 08:29-0500 Diastolic blood pressure 42 mm[Hg] [facility] Work Phone: [facility] 02-05-2022 08:29-0500 Heart rate 79 /min [facility] Work Phone: [facility] 02-05-2022 08:29-0500 SaO2% (BldA) [Mass fraction] 100 % [facility] Work Phone: [facility] 02-05-2022 08:29-0500 Systolic blood pressure 72 mm[Hg] [facility] Work Phone: [facility] 01-12-2022 11:00-0500 Diastolic blood pressure 54 mm[Hg] Alissa Major FINANCIAL ENGINEER.ELECTRICAL DISCHARGE MACHINE OPERATOR Work Phone: [facility] 01-12-2022 11:00-0500 Heart rate 88 /min Alissa Major FINANCIAL ENGINEER.ELECTRICAL DISCHARGE MACHINE OPERATOR Work Phone: [facility] 01-12-2022 11:00-0500 SaO2% (BldA) [Mass fraction] 93 % Alissa Major FINANCIAL ENGINEER.ELECTRICAL DISCHARGE MACHINE OPERATOR Work Phone: [facility] 01-12-2022 11:00-0500 Systolic blood pressure 96 mm[Hg] Alissa Major FINANCIAL ENGINEER.ELECTRICAL DISCHARGE MACHINE OPERATOR Work Phone: [facility] 01-12-2022 10:12-0500 Body temperature 97.9 [degF] Alissa Major FINANCIAL ENGINEER.ELECTRICAL DISCHARGE MACHINE OPERATOR Work Phone: [facility] 01-12-2022 10:12-0500 Respiratory rate 18 /min Alissa Major FINANCIAL ENGINEER.ELECTRICAL DISCHARGE MACHINE OPERATOR Work Phone: [facility] 11-17-2021 15:59-0400 Body height 193 cm No Reeder DO Work Phone: [facility] 11-17-2021 15:59-0400 Body weight 111.58 kg No Reeder DO Work Phone: [facility] 11-17-2021 15:59-0400 Diastolic blood pressure 59 mm[Hg] No Reeder DO Work Phone: [facility] 11-17-2021 15:59-0400 Heart rate 86 /min No Reeder DO Work Phone: [facility] 11-17-2021 15:59-0400 SaO2% (BldA) [Mass fraction] 97 % No Reeder DO Work Phone: [facility] 11-17-2021 15:59-0400 Systolic blood pressure 104 mm[Hg] No Reeder DO Work Phone: [facility] Encounters Encounter Date Encounter Type Care Provider Facility Start: 06-17-2023 End: 06-17-2023 ambulatory NI CABRERA Not Available Start: 05-19-2023 End: 05-19-2023 ambulatory CAITY [facility] Start: 04-11-2023 End: 04-11-2023 ambulatory Devon Moreira Other [employer] Other Start: 04-11-2023 Telephone encounter Devon NUNEZ [facility] Start: 03-18-2023 End: 03-18-2023 ambulatory NI Demetrice CABRERA Not Available Start: 03-18-2023 End: 03-18-2023 Office outpatient visit 25 minutes Ni Cabrera DO Work Phone: [facility] [address] Comment on above: 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 ([facility]/HCC) (Primary Dx); 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 ([facility]/HCC); Type 1 diabetes mellitus with nephropathy ([facility]/HCC); Type 1 diabetes mellitus with hypoglycemia and without coma (CMS/HCC); 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 ([facility]/HCC) Start: 02-17-2023 End: 02-17-2023 ambulatory Devon Moreira Other [employer] Other Start: 02-17-2023 Telephone encounter Devon NUNEZ [facility] Start: 01-14-2023 End: 01-14-2023 ambulatory Devon Moreira Other [employer] Other Start: 01-14-2023 Sbsq nursing facil c are/day minor complj 15 min [facility] Start: 12-10-2022 End: 12-10-2022 ambulatory Devon Moreira Other [employer] Other Start: 12-10-2022 Sbsq nursing facil c are/day minor complj 15 min [facility] Start: 11-12-2022 End: 11-12-2022 ambulatory Devon Moreira Other [employer] Other Start: 11-12-2022 Sbsq nursing facil c are/day minor complj 15 min [facility] Start: 10-16-2022 Refill Asia Pike MD Work Phone: [facility] Comment on above: Med Change Request Start: 10-12-2022 End: 10-12-2022 ambulatory Devon Moreira Other [employer] Other Start: 10-12-2022 Telephone encounter Devon Moreira [facility] Start: 10-08-2022 End: 10-08-2022 ambulatory Devon Moreira Other [employer] Other Start: 10-08-2022 Sbsq nursing facil c are/day new problem 25 min [facility] Start: 09-22-2022 [facility] Start: 09-10-2022 End: 09-10-2022 ambulatory Devon Moreira Other [employer] Other Start: 09-10-2022 Sbsq nursing facil c are/day new problem 25 min [facility] Start: 09-09-2022 End: 09-09-2022 ambulatory [facility] Start: 08-06-2022 End: 08-06-2022 ambulatory Devon Moreira Other [employer] Other Start: 08-06-2022 Sbsq nursing facil c are/day new problem 25 min Devon Moreira [facility] Start: 07-22-2022 End: 07-22-2022 ambulatory Devon Moreira Other [employer] Other Start: 07-22-2022 Telephone encounter [facility] Start: 07-20-2022 End: 07-20-2022 ambulatory Sadia Aguilar Facility:[facility] Start: 07-20-2022 End: 07-20-2022 ambulatory DO Devon Moreira Work Phone: [facility] Work Phone: Start: 07-20-2022 End: 07-20-2022 Discharged Recurring DO Devon Moreira Work Phone: [facility] [place] Work Phone: Start: 07-13-2022 End: 07-13-[address] DEVON MOREIRA Facility:[facility] Start: 07-10-2022 End: 07-10-[address] DEVON MOREIRA Facility:[facility] Start: 07-03-2022 End: 07-03-[address] DEVON MOREIRA Facility:[facility] Start: 06-26-2022 End: 06-26-[address] DEVON MOREIRA Facility:[facility] Start: 06-26-2022 End: 06-26-[address] DEVON MOREIRA Facility:[facility] Start: 06-25-2022 End: 06-25-2022 ambulatory Devon Moreira Other [employer] Other Start: 06-25-2022 Sbsq nursing facil c are/day minor complj 15 min [facility] Start: 06-19-2022 End: 06-19-[address] DEVON MOREIRA Facility:[facility] Start: 06-15-2022 End: 07-15-2022 ambulatory SHAIKH Kate MURRAY Facility:[facility] Start: 06-12-2022 End: 06-12-[address] DOCTOR WALSH Facility:[facility] Start: 06-05-2022 Sbsq nursing facil c are/day new problem 25 min Devon Moreira [facility] Start: 06-05-2022 End: 06-05-[address] DEVON MOREIRA [facility] [employer] Other Start: 05-29-2022 End: 05-29-[address] DEVON MOREIRA Facility:[facility] Start: 05-22-2022 End: 05-22-[address] DEVON MOREIRA Facility:[facility] Start: 05-20-2022 End: 05-20-[address] DEVON MOREIRA Facility:[facility] Start: 05-18-2022 End: 06-12-2022 ambulatory SHAIKH Kate MURRAY Facility:[facility] Start: 05-15-2022 End: 05-15-[address] DEVON MOREIRA Facility:[facility] Start: 05-13-2022 End: 05-13-2022 ambulatory Van Olivarez APRN.ELECTRICAL DISCHARGE MACHINE OPERATOR Work Phone: [facility] Comment on above: results Start: 05-13-2022 E-mail encounter fro m caregiver Van Olivarez APRN.ELECTRICAL DISCHARGE MACHINE OPERATOR Work Phone: [facility] Start: 05-08-2022 End: 05-08-[address] DEVON MOREIRA Facility:[facility] Start: 05-07-2022 End: 05-07-2022 ambulatory Devon Moreira Other [place] [employer] Other Start: 05-07-2022 Sbsq nursing facil c [...] Van cortes APRN.CNP Work Phone: [facility] Start: 04-01-2022 End: 04-01-[address] DEVON MOREIRA Facility:[facility] Start: 03-22-2022 Refill Asia Pike MD Work Phone: [facility] Comment on above: Med Change Request Start: 03-21-2022 ambulatory SHAIKH Kate MURRAY Facilit y:[facility]1 Start: 03-11-2022 End: 03-11-[address] DEVON MOREIRA Facility:[facility] Start: 02-27-2022 Refill Saimra Serna [facility] Comment on above: Rx Refills Start: 02-26-2022 End: 02-26-2022 ambulatory DEVON MOREIRA Facility:[facility] Start: 02-26-2022 End: 02-26-2022 Patient encounter procedure [...] ARTUR CHEN Facility:[facility] Start: 02-05-2022 End: 02-05-2022 Patient encounter procedure [facility] Work Phone: [facility] Comment on above: Kidney replaced by t ransplant (Primary Dx); 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; termination clerk current use of immunosuppressive drug Start: 01-26-2022 End: 01-26-[address] DEVON MOREIRA Facility:[facility] Start: 01-20-2022 Telephone encounter Van Olivarez APRN.ELECTRICAL DISCHARGE MACHINE OPERATOR Work Phone: [facility] Comment on above: Results Start: 01-19-2022 End: 01-19-[address] DEVON MOREIRA Facility:[facility] Start: 01-16-2022 ambulatory SHAIKH Kate MURRAY Facilit y:[facility]1 Start: 01-12-2022 End: 01-12-2022 Subsequent hospital visit by physician Alissa Chavira APRN.ELECTRICAL DISCHARGE MACHINE OPERATOR Work Phone: Angio Comment on above: ILIANA (acute kidney in jury) ([facility]) [N17.9] Start: 12-30-2021 End: 12-30-2021 ambulatory Paresh Fonseca MD Work Phone: Infectious Disease Comment on above: MRSA bacteremia (Arabella munira Dx); Diabetic foot ulcer with osteomyelitis (HCC) Start: 12-30-2021 End: 12-30-2021 Telemedicine consultation with patient Paresh Fonseca MD Work Phone: [facility] Start: 12-29-2021 End: 12-29-2021 ambulatory [...] Start: 12-08-2021 Orders Only Artur Burger ry FINANCIAL ENGINEER.ELECTRICAL DISCHARGE MACHINE OPERATOR Work Phone: [facility] Comment on above: Kidney replaced by t ransplant (Primary Dx) Start: 12-07-2021 ambulatory Paresh Fonseca MD Work Phone: [facility] Comment on above: CoPat Start (copat s top 12/27/21) Start: 12-05-2021 Telephone encounter Paresh Fonseca MD Work Phone: Infectious Disease Comment on above: Patient Update (evus held discussion/) Start: 12-01-2021 Follow-up encounter [facility] Start: 12-01-2021 Patient encounter procedure [facility] Prov ider [facility] Department Start: 11-23-2021 End: 11-28-2021 Evaluation and management of inpatient [facility] DONNAMDSebastian Facility:[facility]1 Start: 11-18-2021 End: 12-16-2021 ambulatory RONALD REAGAN [facility] Facility:[facility]1 Start: 11-17-2021 End: 11-17-2021 Patient encounter procedure No Reeder DO Work Phone: Vascular Medicine Comment on above: Acute deep vein thro mbosis (DVT) of proximal end of right lower extremity (HCC) (Primary Dx); PAD (peripheral artery disease) (HCC); Nonhealing ulcer of heel (HCC); Anticoagulation management encounter Start: 11-14-2021 End: 11-15-2021 ambulatory ASHLEY Cortes [facility] Facility:[facility]1 Start: 10-24-2021 End: 11-15-2021 ambulatory RON[facility]D REAGAN [facility] Facility:H1 Start: 10-22-2021 End: 10-23-2021 ambulatory ASHLEY Sebastian LEWISSRINATH Facility:[facility]1 Start: 10-06-2021 ambulatory Van cortes FINANCIAL ENGINEER.ELECTRICAL DISCHARGE MACHINE OPERATOR Work Phone: [facility] Start: 09-30-2021 Refill Asia Pike MD Work Phone: [facility] Comment on above: Refill Request Start: 09-19-2021 End: 09-24-2021 Evaluation and management of inpatient DR PROSPER LEES Facility:[facility]1 Start: 09-18-2021 End: 09-19-[address] DEVON MOREIRA Facility:[facility] Start: 07-11-2021 Refill Asia Pike MD Work Phone: [facility] Comment on above: Refill Request Start: 06-05-2021 Telephone encounter Van Olivarez FINANCIAL ENGINEER.ELECTRICAL DISCHARGE MACHINE OPERATOR Work Phone: [facility] Comment on above: Results Start: 02-05-2021 End: 02-13-2021 ambulatory UNKNOWN PROVIDER Facility:[facility] Procedures Date Procedure Procedure Detail Performing Clinician Start: 05-19-2023 Follow-up visit Follow-up CAITY IBRAHIM Start: 03-18-2023 Hemoglobin glycosyla rk a1c Ni Cabrera DO Work Phone: Start: 02-05-2022 Creatinine other source Asia Pike MD Work Phone: Start: 02-05-2022 Urnls dip stick/tabl et rgnt auto w/o microscopy Asia Pike MD Work Phone: Start: 01-12-2022 Prothrombin time Alissa Chavira FINANCIAL ENGINEER.ELECTRICAL DISCHARGE MACHINE OPERATOR Work Phone: Start: 12-01-2021 [facility]EM[facility]ER CLINIC CHECK [facility] Provider Start: 11-29-2021 Microscopic examinat ion of blood, culture DR PROSPER LEES Comment on above: Performed By: #### B [id number] ####[place] [id number]. Farhat Leal Start: 11-27-2021 Insertion of Infusio [...] renal transplant KIDNEY TRANSPLANT STATUS Van Sher FINANCIAL ENGINEER.ELECTRICAL DISCHARGE MACHINE OPERATOR Work Phone: History of renal transplant Kidney replaced by transplant Artur Chen FINANCIAL ENGINEER.ELECTRICAL DISCHARGE MACHINE OPERATOR Work Phone: History of renal transplant Kidney replaced by transplant [facility] Work Phone: History of renal transplant Devon Moreira Other History of renal transplant Kidney replaced by transplant Asia Pike MD Work Phone: History of renal transplant Devon Moreira Other Plan of Treatment Date Care Activity Detail Author Start: 06-17-2023 End: 06-17-2023 Patient encounter procedure 06/17/2023 2:15 PM EDT Office Visit [facility] [address] [place] [address] Ni Cabrera DO [address] [place] [address] [facility] [address] Start: 06-16-2023 Hemoglobin A1c measurement Diabetes: Hemoglobin A1C [facility] Start: 02-26-2023 BP CONTROLLED (<130/80) BP CONTROLLE D (<130/80) [facility] Start: 02-05-2023 BP CONTROLLED (<130/80) BP CONTROLLE D (<130/80) [facility] Start: 01-12-2023 BP CONTROLLED (<130/80) BP CONTROLLE D (<130/80) [facility] Start: 11-17-2022 BP CONTROLLED (<130/80) BP CONTROLLE D (<130/80) [facility] Start: 10-16-[address] [facility] Start: 05-15-2022 Medicare Annual Wellness (AWV) Medicare Annual Wellness (AWV) [facility] Start: 04-08-2022 BP CONTROLLED (<130/80) BP CONTROLLE D (<130/80) [facility] Start: 02-15-2022 ADVANCE DIRECTIVE DISCUSSION ADVANCE DIRECTIVE DISCUSSION [facility] Start: 02-15-2022 DEPRESSION ASSESSMENT DEPRESSION ASS ESSMENT [facility] Start: 02-05-2022 COVID-19 VACCINE (5 - Yung risk series) COVID-19 VACCINE (5 - Yung risk series) [facility] Start: 11-27-2021 COVID-19 VACCINE (4 - Booster for Yung series) COVID-19 VACCINE (4 - Booster for Yung series) [facility] Start: 11-04-2021 Hemoglobin A1c/Hemoglobin.total in Blood HBA1C [facility] Start: 10-16-[address] [facility] Start: 03-26-2021 COVID-19 VACCINE (3 - Yung risk 3-dose series) COVID-19 VACCINE (3 - Yung risk 3-dose series) [facility] Start: 03-26-2021 COVID-19 VACCINE (3 - Yung risk series) COVID-19 VACCINE (3 - Yung risk series) [facility] Start: 02-15-2021 ADVANCE DIRECTIVE DISCUSSION ADVANCE DIRECTIVE DISCUSSION [facility] Start: 02-15-2021 DEPRESSION ASSESSMENT DEPRESSION ASS ESSMENT [facility] Start: 01-05-2016 Hepatitis B screening URINE AL BUMIN:CREATININE RATIO [facility] Start: 07-31-2015 Pneumococcal Vaccine : 65+ Years (3 - PCV) Pneumococcal Vaccine: 65+ Years (3 - PCV) [facility] Start: 04-06-2015 Hemoglobin A1c/Hemoglobin.total in Blood HBA1C [facility] Start: 11-22-2010 Hepatitis B surface antibody level LDL CHOLESTEROL [facility] Start: 2009 ADULT PREVNAR-13 ADULT PREVNAR-13 Cl [facility] Start: 2009 PNEUMOVAX AGE 65 AND OVER WITH 5YR LOOKBACK (#1) PNEUMOVAX AGE 65 AND OVER WITH 5YR LOOKBACK (#1) [facility] Start: 1994 SHINGRIX VACCINE (1 of 2) SHINGRIX VACCINE (1 of 2) [facility] Start: 10-18-1963 HEPATITIS A (1 of 2 - Risk 2-dose series) HEPATITIS A (1 of 2 - Risk 2-dose series) [facility] Start: 10-18-1963 Hepatitis A Vaccine (1 of 2 - Risk 2-dose series) Hepatitis A Vaccine (1 of 2 - Risk 2-dose series) [facility] Start: 10-18-1963 SHINGRIX VACCINE (1 of 2) SHINGRIX VACCINE (1 of 2) [facility] Start: 10-18-1963 Urine microalbumin profile [facility] Start: 1962 ANNUAL PCP TEAM MAP PLOTTER MATTHEW DISEASE VISIT ANNUAL PCP TEAM CHRONIC DISEASE VISIT [facility] Start: 1956 Adult depression screening assessment DEPRESSION SCREENING [facility] Start: 1954 3 comp foot exam completed DIABETIC FOOT EXAM [facility] Start: 1954 Glaucoma screening Diabetes: R etinopathy Screening [facility] Start: 1954 Hepatitis C antibody , confirmatory test DILATED RETINAL EXAM [facility] Start: 1950 Pneumococcal Vaccine : 65+ (1 - PCV) Pneumococcal Vaccine: 65+ (1 - PCV) [facility] Start: 1950 PNEUMOCOCCAL: 65+ (1 - PCV) PNEUMOCOCCAL: 65+ (1 - PCV) [facility] Start: 1945 HEPATITIS A (1 of 2 - Risk 2-dose series) HEPATITIS A (1 of 2 - Risk 2-dose series) [facility] URINALYSIS, REFLEX MICROSCOPIC URINALYSIS, REFLEX MICROSCOPIC Lab Routine Screening for genitourinary condition Ordered: 10/06/2021 [facility] Work Phone: Comment on above: Ordered: 10/06/2021 URINALYSIS, REFLEX MICROSCOPIC URINALYSIS, REFLEX MICROSCOPIC Lab Routine Screening for genitourinary condition Ordered: 04/02/2022 [facility] Work Phone: Comment on above: Ordered: 04/02/2022 End: 11-17-2022 US LEG ARTERIAL PERIPH [facility] US LEG ARTERIAL PERIPH [facility] Vascular Lab Routine PAD (peripheral artery disease) (HCC) Nonhealing ulcer of heel (HCC) 1 Occurrences starting 11/17/2021 until 11/17/2022 [facility] Work Phone: Comment on above: 1 Occurrences starti ng 11/17/2021 until 11/17/2022 End: 11-17-2022 US LEG VEIN DVT [facility] US LEG VEIN DVT [facility] Vascular Lab Routine Acute deep vein thrombosis (DVT) of proximal end of right lower extremity (HCC) 1 Occurrences starting 11/17/2021 until 11/17/2022 [facility] Work Phone: Comment on above: 1 Occurrences starti ng 11/17/2021 until 11/17/2022 [facility] VAS [facility] Immunizations Immunization Date Immunization Notes Care Provider Fa [facility] 12-11-2021 COVID-19 booster vaccine, age 12+ yr, bivalent (PFIZER-BIONTeGym) Paresh Fonseca MD Work Phone: [facility] 12-11-2021 influenza, high-dose , quadrivalent vaccine (FLUZONE HIGH DOSE QUADRIVALENT) Paresh Fonseca MD Work Phone: [facility] 12-11-2021 influenza virus vaccine, unspecified formulation [facility] 10-24-2021 influenza, high dose seasonal, preservative-free Ni Petznick DO Work Phone: [facility] 01-19-2019 influenza, high dose seasonal, preservative-free Ni Petznick DO Work Phone: [facility] 11-25-2017 Seasonal trivalent influenza vaccine, adjuvanted, preservative free Ni Petznick DO Work Phone: [facility] 11-05-2016 influenza, high dose seasonal, preservative-free Ni Petznick DO Work Phone: [facility] 07-30-2014 pneumococcal polysaccharide vaccine, 23 valent Ni Petznick DO Work Phone: [facility] 03-09-2011 influenza virus vaccine, unspecified formulation Van Olivarez FINANCIAL ENGINEER.ELECTRICAL DISCHARGE MACHINE OPERATOR Work Phone: [facility] 12-17-2007 influenza virus vaccine, unspecified formulation Van Larsebastian FINANCIAL ENGINEER.ELECTRICAL DISCHARGE MACHINE OPERATOR Work Phone: [facility] Work Phone: 02-11-2006 influenza virus vaccine, unspecified formulation Van Lard FINANCIAL ENGINEER.ELECTRICAL DISCHARGE MACHINE OPERATOR Work Phone: [facility] Work Phone: 12-07-2003 influenza virus vaccine, unspecified formulation Van Lard FINANCIAL ENGINEER.[facility] Work Phone: [facility] Work Phone: 12-07-2003 pneumococcal polysaccharide vaccine, 23 valent Van Olivarez FINANCIAL ENGINEER.[facility] Work Phone: [facility] Work Phone: NEGATED: Highlighted row has not occurred!12-10-2021 COVID-19 booster vaccine, age 12+ yr, bivalent (PFIZER-BIONTeGym) Paresh Fonseca MD Work Phone: [facility] NEGATED: Highlighted row has not occurred!12-10-2021 influenza, high-dose, quadrivalent vaccine (FLUZONE HIGH DOSE QUADRIVALENT) Parehs Fonseca MD Work Phone: [facility] Payers Date Payer Category Payer Medicare MEDICARE MEDICAR E A AND B [id number] 2009-Present [phone] [address] [address] [place] [address] Medicare [id number] .[id number] 2009 Medicare [id number]. 1.13.159.2.7.3 .[id number] 2009 Unknown [employer] [place] MEDICARE SUPPLEMENT [id number] 2009-Present [phone] [address] [facility] [place] [facility] [place] [address] Indemnity [id number] 1.2.840.691209.1.13.159.2.7.3 .680075.315 2009 Unknown 1.2.840.993957. 1.13.159.2.7.3 .118554.315 2009 Unknown [id number] 2.16.8 40.1.032427.19 2009 Unknown [id number] 1959 Medicare [id number] 1959 Self-pay 1944 Unknown [id number] 2.16.840.1.523938.3.579.2.732 1944 Unknown [id number] 2.16.840.1.929764.3.579.2.593 1944 Unknown [id number] 2.16.840.1.419120.3.579.2.593 1944 Unknown [id number] 2.16.840.1.581848.3.579.2.593 1944 Unknown [id number] 2.16.840.1.869661.3.579.2.593 1944 Unknown [id number] 2.16.840.1.334682.3.579.2.593 1944 Unknown [id number] 2.16.840.1.917110.3.579.2.593 1944 Unknown [id number] 2.16.840.1.154973.3.579.2.593 1944 Unknown [id number] 2.16.840.1.467448.3.579.2.593 1944 Unknown [id number] 2.16.840.1.762036.3.579.2.593 1944 Unknown [id number] 2.16.840.1.960037.3.579.2.593 1944 Unknown [id number] 2.16.840.1.247871.3.579.2.593 1944 Unknown [id number] 2.16.840.1.979850.3.579.2.593 1944 Unknown [id number] 2.16.840.1.715849.3.579.2.593 1944 Unknown [id number] 2.16.840.1.711436.3.579.2.593 1944 Unknown [id number] 2.16.840.1.332985.3.579.2.593 1944 Unknown [id number] 2.16.840.1.891215.3.579.2.593 1944 Unknown [id number] 2.16.840.1.274686.3.579.2.593 1944 Unknown [id number] 2.16.840.1.938486.3.579.2.593 1944 Unknown [id number] 2.16.840.1.436968.3.579.2.593 1944 Unknown [id number] 2.16.840.1.170629.3.579.2.593 1944 Unknown [id number] 2.16.840.1.746686.3.579.2.593 1944 Unknown [id number] 2.16.840.1.515018.3.579.2.593 1944 Unknown [id number] 2.16.840.1.967712.3.579.2.593 1944 Unknown [id number] 2.16.840.1.586205.3.579.2.593 1944 Unknown [id number] 2.16.840.1.131894.3.579.2.593 1944 Unknown [id number] 2.16.840.1.226513.3.579.2.593 1944 Unknown [id number] 2.16.840.1.918665.3.579.2.593 1944 Unknown [id number] 2.16.840.1.656670.3.579.2.593 1944 Unknown [id number] 2.16.840.1.982006.3.579.2.593 1944 Unknown [id number] 2.16.840.1.273557.3.579.2.593 1944 Unknown [id number] 2.16.840.1.728521.3.579.2.593 1944 Unknown [id number] 2.16.840.1.126816.3.579.2.593 1944 Unknown [id number] 2.16.840.1.117760.3.579.2.593 1944 Unknown [id number] 2.16.840.1.610014.3.579.2.593 1944 Unknown [id number] 2.16.840.1.805934.3.579.2.593 1944 Unknown [id number] 2.16.840.1.152855.3.579.2.593 1944 Unknown [id number] 2.16.840.1.997465.3.579.2.593 1944 Unknown [id number] 2.16.840.1.674100.3.579.2.593 1944 Unknown [id number] 2.16.840.1.373031.3.579.2.593 1944 Unknown [id number] 2.16.840.1.312422.3.579.2.593 1944 Unknown [id number] 2.16.840.1.877609.3.579.2.593 1944 Unknown [id number] 2.16.840.1.817025.3.579.2.593 1944 Unknown [id number] 2.16.840.1.411525.3.579.2.593 1944 Unknown [id number] 2.16.840.1.832709.3.579.2.593 1944 Unknown [id number] 2.16.840.1.455071.3.579.2.593 1944 Unknown [id number] 2.16.840.1.005669.3.579.2.593 1944 Unknown [id number] 2.16.840.1.857586.3.579.2.125 9 1944 Unknown [id number] 2.16.840.1.558735.3.579.2.125 9 Medicare Medicare Outpatient [id number] 2T [id number] Unknown [id number] 2.16.840.1.454797.3.579.2.593 Unknown [id number] 2.16.840.1.264118.3.579.2.593 Unknown [id number] 2.16.840.1.865614.3.579.2.531 Social History Date Type Detail Facility Start: 03-09-2011 End: 07-07-2022 Tobacco smoking status NHIS Ex-smoker [facility] Work Phone: End: 02-15-1975 History of tobacco use Current smoker [facility] Work Phone: End: 02-15-1975 History of tobacco use Cigarette Smoker [facility] Work Phone: Start: 04-08-2021 End: 02-26-2022 Alcohol intake Current drinker of alcohol (finding) [facility] Start: 1945 Sex Assigned At Not on file [facility] Start: 03-09-2011 End: 10-20-2022 Cigarettes smoked current (pack per day) - Reported 1 [facility] Work Phone: Start: 03-09-2011 End: 02-26-2022 Tobacco use and exposure Smokeless tobacco non-user [facility] Start: 09-25-2021 History SDOH Financial 5 [facility] Start: 09-25-2021 History SDOH Food Worry 1 [facility] Start: 09-25-2021 History SDOH Transpo rt Med 2 [facility] Start: 09-14-2021 End: 01-12-2022 Exposure to SARS-CoV-2 (event) Not sure [facility] Start: 02-26-2022 End: 10-20-2022 Sex Assigned At [facility] Work Phone: Start: 1945 Sex Assigned At Male F [facility] How hard is it for y ou to pay for the very basics like food, housing, medical care, and heating Not hard at all [facility] Work Phone: (I/We) worried shiloh er (my/our) food would run out before (I/we) got money to buy more. Never true [facility] Work Phone: In the past 12 month s, was there a time when you were not able to pay the mortgage or rent on time? No [facility] Work Phone: Start: 03-18-2023 Alcohol intake Ex-drinker (finding) [facility] How often to you hav e a drink containing alcohol? Never [facility] Medical Equipment Procedure Code Equipment Code Equipment Original Text Equipment Identifier Dates Tray Powerline S urecuff 5fr Polyurethane Catheter 1 Lumen Microintroducer - [id number] Start: 12-06-2021 Clinical Notes 06-05-2021 to [...] at about 50-60 systolic. patient with friend/ grain combine driver from facility, we will take patient [...] of the right coronary artery with robust xhwg-xh-qkldr collaterals. 5. Normal global left ventricular systolic [...] Follow up with Dr. Galvez in the [facility] in the next 2 weeks; he may follow up with Dr. Orosco as needed for interventional issues. 5. Follow up wi (more content not included)... [facility] 04-11-2023 Evaluation note Encounter Date Diagnosis [...] (ICD-10 - Z89.619) WC dependent. 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 He is being transported by a grain combine driver. 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 CONTINUOUS BLOOD GLUC SENSOR (AssuraMedSTYLE SHAAN 14 DAY SENSOR) MISC Inject 1 [...] mouth in the morning. documented in this encounterCrittenton Behavioral [id number] Evaluation note* Encounter Date Diagnosis Assessment Notes [...] are maintaining regular scheduled appts with their eligibility analyst. No bleeding complications Dec, Hyperlipidemia LDL [...] fluid balance and to avoid dehydration. Dec, senior living (current) use of insulin (ICD-10 - Z79.4) [facility] Other 10-26-2023 Evaluation note* Encounter Date Diagnosis Assessment Notes Treatment Notes Treatment Clinical Notes Nov, Longstanding persistent atrial fibrillation (ICD-10 - I48.11) This patient is in NSR or rate controlled. This patient is anticoagulated to prevent thromboembolic events. They are maintaining regular scheduled appts with their eligibility analyst. No bleeding complications Nov, Hyperlipidemia LDL [...] Z94.0) Monthly labs to transplant clinic Nov, senior living (current) use of insulin (ICD-10 - Z79.4) [facility] Other 09-28-2023 Evaluation note* Encounter Date Diagnosis [...] are maintaining regular scheduled appts with their eligibility analyst. No bleeding complications Oct, Type 1 [...] - Z94.0) Continue routine surveillance labs. Oct, termination clerk (current) use of insulin (ICD-10 - Z79.4) [facility] Other 09-01-2023 Miscellaneous Notes* Telephone Encounter - Mary Martinez - 10/16/2022 1:08 PM EDT Pharmacy comment: REQUEST FOR 90 DAYS PRESCRIPTION. DX Code Needed. 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 No bleeding complications Sep, Type 1 [...] risk for cerebrovascular and cardiovascular disease. Sep, termination clerk (current) use of insulin (ICD-10 - Z79.4) Sep, Kidney transplant status (ICD-10 - Z94.0) f/u transplant clinic Continue surveillance labs [facility] Other 08-08-2023 Miscellaneous Notes* Telephone Encounter - Ariadna Mcdowell Tech - 09/22/2022 8:58 AM EDT Pharmacy requesting refills as follows: Requested Prescriptions Pending Prescriptions Disp Refills tacrolimus IR (PROGRAF) 1 mg capsule Sig: Take 1 capsule by mouth DAILY AT 6 PM. Please review and advise. Ariadna Mcdowell, documented in this encounterCleveland [id number] Evaluation note* Encounter Date Diagnosis Assessment Notes Treatment Notes Treatment Clinical Notes Aug, Longstanding persistent atrial fibrillation (ICD-10 - I48.11) This patient is in NSR or rate controlled. This patient is anticoagulated to prevent thromboembolic events. They are maintaining regular scheduled appts with their eligibility analyst. No s/s bleeding Aug, Type 1 [...] risk for cerebrovascular and cardiovascular disease. Aug, senior living (current) use of insulin (ICD-10 - Z79.4) Aug, Kidney transplant status (ICD-10 - Z94.0) Continue close surveillance w/ [facility] Other 07-26-2023 NoteUT Electrophysiology Consult Note Reason [...] at about 50-60 systolic. 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 Alvarez 03/2021 Mr. Almonte, [place] , presents to clinic for routine follow [...] of the right coronary artery with robust ptqy-jv-ldtlu collaterals. 5. Normal global left ventricular systolic [...] Follow up with Dr. Galvez in the [facility] in the next 2 weeks; he may follow up with Dr. Orosco as needed for interventional issues. 5. Follow up with Dr. Devon Moreira as scheduled. PMH: Past Medical History: Diagnosis Date Abnormal ECG Arrhythmia Atrial fibrillation (CMS/HCC) Chronic kidney disease Coronary artery disease Diabetes mellitus (CMS/HCC) (more content not included)...[facility]-2023 NotePatient here for 1.5 year follow up and device check. Lightheaded in the office today, as BP is very low. He denies chest pain, SOB, palpitations, and bleeding on warfarin. Had routine labs last week. Review of Systems Musculoskeletal: Positive for arthritis, joint pain and myalgias. Neurological: Positive for light-headedness. All other systems reviewed and are negative.[facility] 08-06-2022 Evaluation note* Encounter Date Diagnosis [...] are maintaining regular scheduled appts with their eligibility analyst. No bleeding complications Jul, Type 1 [...] risk for cerebrovascular and cardiovascular disease. Jul, termination clerk (current) use of insulin (ICD-10 - Z79.4) Jul, Kidney transplant status (ICD-10 - Z94.0) Monthly labs, ongoing surveillance from transplant clinic [facility] Other 05-15-2023 Progress note Author Sadia Aguilar [facility] June 29, 2022 2:47pm Note Date/Time June 29, 2022 2:46p m [facility] [address] [place] [address] Wound Center Provider Note Signed Patient: Alex Almonte MR#: [id number] : 1945 Acct:[id number] Age/Sex: 76 / M Copies to: DO Sadia Whyte, FINANCIAL ENGINEER~ HPI Date of Visit Date of Visit: Date of Service: 06/29/2022 Time of Service: 14:45 Narrative HPI: 12/30/21 Alex is a 76 year old male presenting to [facility] wound care for aninitial visit for eval and treatment of a sacral/coccyx area pressure ulcer. He resides at [facility]. There is an ASSEMBLER BONDING present for the visit. Medicalhoney gel will [...] his brief that was cleaned by this marketing writer as well as another nursing staff [...] from initial visit here Mode of Arrival/ Thoracic Medicine Physician: Facility vehicle Assistive Device Used Today: Wheelchair and Indra Lives with:: Care/Nursing Facility Appetite Description: Within Normal Limits Who helps w/ dressing change?: Nursing Facility Why Do You Need Help?: Can't Reach Ulcer, Limited mobility and Taxing effort to leave home Smoking Status: Former smoker [facility] Medical History (Updated 03/03/22 @ [...] Ulcer/Injury Staging: Unstageable Bed Appearance: Beefy Red, [place], Yellow and Rolled Edges Percent of Wound [...] <Electronically signed by DAVID Aguilar> 06/29/22 144 [facility] Work Phone: 1(956) 121-472505-11-2023 Evaluation note* Encounter Date Diagnosis Assessment Notes [...] are maintaining regular scheduled appts with their eligibility analyst. No bleeding complications June, Hyperlipidemia LDL goal <100 (ICD-10 - E78.5) Instructed on diet and exercise with continued statin therapy.Discussed the beneficial effects of lowering cholesterol in reducing the risk for cerebrovascular and cardiovascular disease. June, termination clerk (current) use of insulin (ICD-10 - Z79.4) June, Kidney transplant status (ICD-10 - Z94.0) No s/s rejection [facility] Other 04-24-2023 Progress note Author Sadia Aguilar [facility] June 08, 2022 2:10pm Note Date/Time June 08, 2022 2:1 0pm [facility] [address] [place] [address] Wound Center Provider Note Signed Patient: Alex Almonte MR#: [id number] : 1945 Acct:[id number] Age/Sex: 76 / M Copies to: DO Sadia Whyte APRN~ HPI Date of Visit Date of Visit: Date of Service: 06/08/2022 Time of Service: 14:07 Narrative HPI: 12/30/21 Alex is a 76 year old male presenting to [facility] wound care for aninitial visit for eval and treatment of a sacral/coccyx area pressure ulcer. He resides at [facility]. There is an ASSEMBLER BONDING present for the visit. Medicalhoney gel will [...] his brief that was cleaned by this marketing writer as well as another nursing staff [...] from initial visit here Mode of Arrival/ Thoracic Medicine Physician: Facility vehicle Assistive Device Used Today: Wheelchair and Indra Lives with:: Care/Nursing Facility Appetite Description: Within Normal Limits Who helps w/ dressing change?: Nursing Facility Why Do You Need Help?: Can't Reach Ulcer, Limited mobility and Taxing effort to leave home Smoking Status: Former smoker [facility] Medical History (Updated 03/03/22 @ [...] Ulcer/Injury Staging: Unstageable Bed Appearance: Beefy Red, [place], Yellow and Rolled Edges Percent of Wound [...] 06/08/22 1410 [facility] Work Phone: 1(847) 701-147204-21-2023 Evaluation note* Encounter Date Diagnosis Assessment Notes [...] are maintaining regular scheduled appts with their eligibility analyst. May, senior living (current) use of insulin (ICD-10 - Z79.4) May, Kidney transplant status (ICD-10 - Z94.0) routine labs per clinic. 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 No open ulcerations present Pain controlled [facility] Other 03-27-2023 Progress note Author Sadia Aguilar [facility] May 11, 2022 1:41pm Note Date/Time May 11, 2022 1:4 0pm [facility] [address] [place] [address] Wound Center Provider Note Signed Patient: Alex Almonte MR#: [id number] : 1945 Acct:[id number] Age/Sex: 76 / M Copies to: DO Sadia Whyte APRN~ HPI Date of Visit Date of Visit: Date of Service: 05/11/2022 Time of Service: 13:38 Narrative HPI: 12/30/21 Alex is a 76 year old male presenting to [facility] wound care for aninitial visit for eval and treatment of a sacral/coccyx area pressure ulcer. He resides at [facility]. There is an ASSEMBLER BONDING present for the visit. Medicalhoney gel will [...] his brief that was cleaned by this marketing writer as well as another nursing staff [...] from initial visit here Mode of Arrival/ Thoracic Medicine Physician: Facility vehicle Assistive Device Used Today: Wheelchair and Indra Lives with:: Care/Nursing Facility Appetite Description: Within Normal Limits Who helps w/ dressing change?: Nursing Facility Why Do You Need Help?: Can't Reach Ulcer, Limited mobility and Taxing effort to leave home Smoking Status: Former smoker [facility] Medical History (Updated 03/03/22 @ 14:41 by Sadia Copsey, FINANCIAL ENGINEER) Below-knee amputation of right lower extremity Diabetes [...] Ulcer/Injury Staging: Unstageable Bed Appearance: Beefy Red, [place] and Yellow Percent of Wound Bed Granulated/Red: [...] signed by DAVID Aguilar> 05/11/22 [address] [facility] Work Phone: 1(330) 631-999803-23-2023 Evaluation note* Encounter Date Diagnosis Assessment Notes [...] are maintaining regular scheduled appts with their eligibility analyst. Apr, Type 1 diabetes mellitus with [...] are reviewed at the office visit Apr, termination clerk (current) use of insulin (ICD-10 - Z79.4) Apr, Kidney transplant status (ICD-10 - Z94.0) Serial labs by clinic Hydrate, avoid NOLBERTO [facility] Other 03-10-2023 NoteHNO ID: [id number] Author: Keyur Brown MD Service: ? Author Type: Physician Type: Progress Notes Filed: 04/24/2022 10:32 AM Note Text: Encounter opened in error, patient not seen.[facility]02-28-2023 Progress note Author Sadia Aguilar [facility] April 14, 2022 2:19pm Note Date/Time April 14, 2022 2:18pm [facility] [address] [place] [address] Wound Center Provider Note Signed Patient: Alex Almonte MR#: [id number] : 1945 Acct:[id number] Age/Sex: 76 / M Copies to: DO Sadia Whyte APRN~ HPI Date of Visit Date of Visit: Date of Service: 04/14/2022 Time of Service: 14:18 Narrative HPI: 12/30/21 Alex is a 76 year old male presenting to [facility] wound care for aninitial visit for eval and treatment of a sacral/coccyx area pressure ulcer. He resides at [facility]. There is an ASSEMBLER BONDING present for the visit. Medicalhoney gel will [...] his brief that was cleaned by this marketing writer as well as another nursing staff [...] from initial visit here Mode of Arrival/ Thoracic Medicine Physician: Facility vehicle Assistive Device Used Today: Wheelchair and Indra Lives with:: Care/Nursing Facility Appetite Description: Within Normal Limits Who helps w/ dressing change?: Nursing Facility Why Do You Need Help?: Can't Reach Ulcer, Limited mobility and Taxing effort to leave home Smoking Status: Former smoker [facility] Medical History (Updated 03/03/22 @ [...] Ulcer/Injury Staging: Unstageable Bed Appearance: Beefy Red, [place] and Yellow Percent of Wound Bed Granulated/Red: [...] 17 Signed By: <Electronically signed by DAVID gAuilar> 04/14/221418 [facility] Work Phone: 1(636) 235-497302-16-2023 NotePatient Outreach (KIMBERLY) ALEX ALMONTE ([id number]) 1945 M TRN Date Time Provider Department 04/02/22 VAN OLIVAREZ During your visit today, we recorded the following information about you: Allergies As of Date: 04/02/2022 Noted Allergy Reaction PYRIDOSTIGMINE BROMIDE 08/04/2021 8 - GI Upset Date Reviewed: 02/26/2022 Reviewed by: Braden Abel MA - Fully Assessed Visit Diagnosis:Screening for genitourinary condition [Z13.89] Order(s):URINALYSIS, REFLEX MICROSCOPIC [[id number]] Order #: [id number] Prescriptions as of 04/06/2022 - tacrolimus IR [...] by mouth daily with lunch. 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 [VGQ8826] 07/30/2006 VITAMIN D DEFICIENCY NOS [E55.9] 09/07/2008 [...] perfusion [R09.89] 09/30/2021 PAD (peripheral artery disease) ([facility]) [I73.9] 09/26/2021 Osteomyelitis (HCC) [M86.9] 11/29/2021 Class 1 obesity due to excess calories with ser*11/29/2021 Mixed hyperlipidemia due to type 2 diabetes myles*11/29/2021 Type 2 diabetes mellitus with diabetic peripher*11/29/2021 Atherosclerosis of [place] artery of extremity w*11/29/2021 Malnutrition of moderate degree (HCC) [E44.0] 12/01/2021 Dermatitis associated with moisture [L30.8] 12/04/2021 Encounter Status:Closed by LUISA HOBBSUSER on 04/06/22[facility] 03-30-2022 Miscellaneous Notes* Telephone Encounter - Van [...] to pharmacy. Katina Duque documented in this encounterThe [facility]02-[facility]-2023 Progress note Author Sadia Aguilar [facility] March 24, 2022 3:00pm Note Date/Time March 24, 2022 2 :59pm [facility] [address] [place] [address] Wound Center Provider Note Signed Patient: Alex Almonte MR#: M [id number] : 1945 Acct:[id number] Age/Sex: 76 / M Copies to: Devon Moreira, Sadia Jeff, FINANCIAL ENGINEER~ HPI Date of Visit Date of Visit: Date of Service: 03/24/2022 Time of Service: 14:58 Narrative HPI: 12/30/21 Alex is a 76 year old male presenting to [facility] wound care for aninitial visit for eval and treatment of a sacral/coccyx area pressure ulcer. He resides at [facility]. There is an ASSEMBLER BONDING present for the visit. Medicalhoney gel will [...] his brief that was cleaned by this marketing writer as well as another nursing staff [...] from initial visit here Mode of Arrival/ Thoracic Medicine Physician: Facility vehicle Assistive Device Used Today: Wheelchair and Indra Lives with:: Care/Nursing Facility Appetite Description: Within Normal Limits Who helps w/ dressing change?: Nursing Facility Why Do You Need Help?: Can't Reach Ulcer, Limited mobility and Taxing effort to leave home Smoking Status: Former smoker [facility] Medical History (Updated 03/03/22 @ [...] Ulcer/Injury Staging: Unstageable Bed Appearance: Beefy Red, [place] and Yellow Percent of Wound Bed Granulated/Red: [...] <Electronically signed by DAVID Aguilar> 03/24/22 [address] [facility] Work Phone: 1(795) 928-567401-17-2023 Progress note Author Sadia Aguilar [facility] March 03, 2022 2:41pm Note Date/Time March 03, 2022 2 :41pm [facility] [address] [place] [address] Wound Center Provider Note Signed Patient: Alex Almonte MR#: [id number] : 1945 Acct:[id number] Age/Sex: 76 / M Copies to: DO Sadia Whyte APRN~ HPI Date of Visit Date of Visit: Date of Service: 03/03/2022 Time of Service: 14:38 Narrative HPI: 12/30/21 Alex is a 76 year old male presenting to [facility] wound care for aninitial visit for eval and treatment of a sacral/coccyx area pressure ulcer. He resides at [facility]. There is an ASSEMBLER BONDING present for the visit. Medicalhoney gel will [...] his brief that was cleaned by this marketing writer as well as another nursing staff [...] from initial visit here Mode of Arrival/ Thoracic Medicine Physician: Facility vehicle Assistive Device Used Today: Wheelchair and Indra Lives with:: Care/Nursing Facility Appetite Description: Within Normal Limits Who helps w/ dressing change?: Nursing Facility Why Do You Need Help?: Can't Reach Ulcer, Limited mobility and Taxing effort to leave home Smoking Status: Former smoker [facility] Medical History (Updated 03/03/22 @ [...] Ulcer Pressure Ulcer/Injury Staging: Unstageable Bed Appearance: [place] and Yellow Percent of Wound Bed Granulated/Red: 90 Percent of Devitalized: 10 Length (cm): 2.2 Width (cm): 1.8 Depth (cm): 1.9 CM Sq: 3.960 Surrounding Tissue Appearance: [place], Hyperpigmented and Satellite lesions Surrounding Tissue Temp: [...] 03/03/22 1441 [facility] Work Phone: 1(150) 162-804901-13-2023 Miscellaneous Notes* Telephone Encounter - RAUL Davidson - 02/27/2022 10:24 AM EST Patient phones requesting refills as follows: Per pts sister takes 1 mg in AM and 1 mg in PM Requested Prescriptions Pending Prescriptions Disp Refills tacrolimus IR (PROGRAF) 1 mg capsule Sig: Take 2 capsules by mouth DAILY (6 AM). Please review and advise. RAUL Davidson documented in this encounterThe Metrohealth System01-12-2023 NoteHNO ID: [id number] Author: Hina Peterson MD Service: ? 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 Magic Cup Leonard with lunch aspirin, enteric coated (ASPIRIN, ENTERIC [...] not included)... [facility]01-12-2023 History of Present illness Narrative* Hina Peterson MD - 02/26/2022 4:25 PM EST Images from the original note were not included. [facility] [place] DEPARTMENT OF VASCULAR SURGERY OUTPATIENT VISIT DATE [...] maxwell and sutures were removed at the [facility] facility. He comes here with a lateral wound eschar. He denies any fevers, chills, or any drainage. He is on anticoagulation. 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 Magic Cup Leonard with lunch aspirin, enteric coated (ASPIRIN, ENTERIC [...] 2022 TIME: 4:26 PM documented in this encounterThe Metrohealth System01-05-2023 Miscellaneous Notes* Telephone Encounter - Gwen Beard [...] Home and cell number(Ask for Alex's nurse) [phone] Diagnosis 4 mo f/u wound check Yumiko Mcclain documented in this encounterThe Metrohealth System01-05-2023 Miscellaneous Notes* Telephone Encounter - Augusta Medrano RN - 02/19/2022 11:11 AM EST Alex Almonte's nursing facility, [facility], called regarding elevated tacrolimus level (23.9). Spoke with bedside nurse, mukul Enriquez. Level is from last week- unable to clearly determine if medications were held prior to lab work. Reviewed with nurse morning labs should occur prior to lab draws. Patient is scheduled for repeat labs tomorrow. Will assess new level. Augusta Medrano RN documented in this encounterThe Metrohealth System01-04-2023 Miscellaneous Notes* Telephone Encounter - Martina Rossi [...] advise. Mercedez Tavares MA documented in this encounterThe Metrohealth System12-27-2022 Progress note Author Sadia Aguilar [facility] February 10, 2022 3:47pm Note Date/Time February 10, 2022 3:47pm [facility] [address] [place] [address] Wound Center Provider Note Signed Patient: Alex Almonte MR#: [id number] : 1945 Acct:[id number] Age/Sex: 76 / M Copies to: DO Sadia Whyte APRN~ HPI Date of Visit Date of Visit: Date of Service: 02/10/2022 Time of Service: 15:44 Narrative HPI: 12/30/21 Alex is a 76 year old male presenting to [facility] wound care for aninitial visit for eval and treatment of a sacral/coccyx area pressure ulcer. He resides at [facility]. There is an ASSEMBLER BONDING present for the visit. Medicalhoney gel will [...] his brief that was cleaned by this marketing writer as well as another nursing staff member, few weeks to follow up Subjective Pain Coccyx: Pain Description: Intermittent Pain Intensity: 0 Wound/Ulcer History When did wound start?: 4 weeks ago- from initial visit here Mode of Arrival/ Thoracic Medicine Physician: Facility vehicle Assistive Device Used Today: Wheelchair and Indra Lives with:: Care/Nursing Facility Appetite Description: Within Normal Limits Who helps w/ dressing change?: Nursing Facility Why Do You Need Help?: Can't Reach Ulcer, Limited mobility and Taxing effort to leave home Smoking Status: Former smoker [facility] Medical History (Updated 01/20/22 @ [...] Ulcer Pressure Ulcer/Injury Staging: Unstageable Bed Appearance: [place] and Yellow Percent of Wound Bed Granulated/Red: 90 Percent of Devitalized: 10 Length (cm): 2.5 Width (cm): 2.3 Depth (cm): 2.1 CM Sq: 5.750 Surrounding Tissue Appearance: [place], Hyperpigmented and Satellite lesions Surrounding Tissue Temp: [...] 02/10/22 1547 [facility] Work Phone: 1(898) 907-220312-22-2022 NoteHNO ID: [id number] Author: Asia Pike MD Service: ? Author Type: Physician Type: Progress Notes Filed: 02/05/2022 9:38 AM Note Text: [facility] [place] Transplant Follow up Portions of this note [...] and snacks patient declined. Indra scale at [facility]: 166.2 lbs per patient. Bed sore on coccyx causing discomfort. Being changed regularly at SNF- reported to be smaller around but still as deep. Patient not very up to date with medications. Patient brought paperwork from [employer] with all medications being received. Patient unsure if they have been drawing labs regularly. Last Tac from 01/19: 12.9 and K 5.9. In need of current labs. Lab orders will be sent with patient and follows as below: Kidney and Pancreas Transplant Standing Lab Orders [address] [facility] [address] [place], [place] [address] February 05, 2022 Alex Kate Almonte 1945 [id number] STANDARD TESTING: Diagnosis Codes: Z94.0 Kidney Transplant [...] AT YOUR LABORATORY FACILITY AND FAX TO [phone]. PLEASE CALL [phone]. Provider: Dr. Pike Current Outpatient Medications Medication [...] by mouth daily with lunch. Magic Cup Leonard with lunch aspirin, enteric coated (ASPIRIN, ENTERIC COATED) 81 mg EC tablet Take 1 tablet by mouth once daily. atorvastatin (LIPITOR) 40 mg tablet 1 tablet by ORAL/FEEDING TUBE route daily at bedtime. (more content not included)...[facility]12-22-2022 History of Present illness Narrative* Asia Pike MD - 02/05/2022 8:20 AM EST Images from the original note were not included. [facility] [place] Transplant Follow up Portions of this note [...] and snacks patient declined. Indra scale at [facility]: 166.2 lbs per patient. Bed sore on coccyx causing discomfort. Being changed regularly at SNF- reported to be smaller around but still as deep. Patient not very up to date with medications. Patient brought paperwork from [facility] with all medications being received. Patient unsure if they have been drawing labs regularly. Last Tac from 01/19: 12.9 and K 5.9. In need of current labs. Lab orders will be sent with patient and follows as below: Kidney and Pancreas Transplant Standing Lab Orders [address] [place], [place] [address] February 05, 2022 Alex Almonte 1945 [id number] STANDARD TESTING: Diagnosis Codes: Z94.0 Kidney Transplant [...] AT YOUR LABORATORY FACILITY AND FAX TO [phone]. PLEASE CALL [phone]. Provider: Dr. Pike Current Outpatient Medications Medication [...] by mouth daily with lunch. Magic Cup Leonard with lunch aspirin, enteric coated (ASPIRIN, ENTERIC [...] complexity. Asia Pike MD documented in this encounterThe [facility]health System12-06-2022 Progress note Author Sadia Aguilar [facility] January 20, 2022 2:21pm Note Date/Time January 20, 2022 2 :21pm [facility] [address] [place] [address] Wound Center Provider Note Signed Patient: Alex Almonte MR#: [id number] : 1945 Acct:[id number] Age/Sex: 76 / M Copies to: DO aSdia Whyte APRN~ HPI Date of Visit Date of Visit: Date of Service: 01/20/2022 Time of Service: 14:17 Narrative HPI: 12/30/21 Alex is a 76 year old male presenting to [facility] wound care for aninitial visit for eval and treatment of a sacral/coccyx area pressure ulcer. He resides at [facility]. There is an ASSEMBLER BONDING present for the visit. Medicalhoney gel will [...] from initial visit here Mode of Arrival/ Thoracic Medicine Physician: Facility vehicle Assistive Device Used Today: Wheelchair and Indra Lives with:: Care/Nursing Facility Appetite Description: Within Normal Limits Who helps w/ dressing change?: Nursing Facility Why Do You Need Help?: Can't Reach Ulcer, Limited mobility and Taxing effort to leave home Smoking Status: Former smoker [facility] Medical History (Updated 01/20/22 @ [...] Ulcer Pressure Ulcer/Injury Staging: Unstageable Bed Appearance: [place] and Yellow Percent of Wound Bed Granulated/Red: 40 Percent of Devitalized: 60 Length (cm): 5.2 Width (cm): 3.4 Depth (cm): 1.8 CM Sq: 17.680 Surrounding Tissue Appearance: [place] and Hyperpigmented Surrounding Tissue Temp: Warm Drainage [...] 01/20/22 1421 [facility] Work Phone: 1(999) 111-333712-06-2022 Miscellaneous Notes* Telephone Encounter - Van Olivarez APRN.ELECTRICAL DISCHARGE MACHINE OPERATOR - 01/20/2022 1:12 PM EST Labs noted from yesterday. Pt is currently residing at [facility], I spoke with the Nurse, the results has been addressed by Physician caring for pt. He had been placed on Chlor Con and this has been discontinued and hyperkalemia has been treated. Van Olivarez APRN.DIAMANTE documented in this encounterThe Metrohealth System11-28-2022 Surgical operation note* Brief Op Note - Misbah Landis PA-C - 01/12/2022 10:41 AM EST BRIEF OPERATIVE / PROCEDURE NOTE LOG ID: [id number] SURGERY/PROCEDURE DATE: 01/12/2022 INCISION/PROCEDURE START TIME: 10:32 AM INCISION CLOSE/PROCEDURE END TIME: 10:35 AM SURGEON(S)/PROCEDURALIST(S) AND LOADER ENGINEER(S): Misbah Landis PA-C SURGERY/PROCEDURE(S): Removal tunneled vascular access catheter under local anesthesia ANESTHESIA: Procedural Sedation FINDINGS: Catheter removed intact ESTIMATED BLOOD LOSS: 0 ml SPECIMENS: None COMPLICATIONS: None PRE-OP/PRE-PROCEDURE DIAGNOSIS: Foot Ulcer POST-OP/POST-PROCEDURE DIAGNOSIS: Same as Preop SIGNATURE: Misbah Landis PA-C PATIENT NAME: Alex Almonte DATE: January 12, 2022 TIME: 10:42 AM documented in this encounterThe Metrohealth System11-22-2022 Nurse Note* Laxmi Archibald RN - 01/06/2022 1:55 PM EST Pre-procedure instructions: [facility] patient's [facility], [phone][facility] andconfirmed appt. for Gerhard removal scheduled on 01/12/22, at [facility]. If instructions are not followed your [...] signed. Arrival at 9:30am to desk [address] ([facility]) and check in for your procedure. Commercial Drone Software Developer/Transportation: How will you be arriving for your procedure? Ambulance service. To be arranged by [facility]. If you develop any of the following symptoms before your procedure, please call [phone]. Chills, joint pain, rash, sore throat, cough, loss of smell, reddened eyes, vomiting, abdominal pains, diarrhea, loss of taste, severe headache, weakness, bruising or bleeding, fever, muscle pain, shortness of breath Recovery expectations: You can expect to be in recovery for 30 minutes following the procedure. Written instructions provided to patient via [employer] If you have any questions please call [phone] documented in this encounterThe Metrohealth System11-15-2022 Progress note Author Sadia Aguilar [facility] December 30, 2021 1:49pm Note Date/Time December 30, 2021 1:49pm [facility] [address] [place] [address] Wound Center Provider Note Signed Patient: Alex Almonte MR#: [id number] : 1945 Acct:[id number] Age/Sex: 76 / M Copies to: DO Sadia Whyte APRN~ HPI Date of Visit Date of Visit: Date of Service: 12/30/2021 Time of Service: 13:44 Narrative HPI: 12/30/21 Alex is a 76 year old male presenting to [facility] wound care for aninitial visit for eval and treatment of a sacral/coccyx area pressure ulcer. He resides at [facility]. There is an ASSEMBLER BONDING present for the visit. Medicalhoney gel will [...] start?: 4 weeks ago Mode of Arrival/ Thoracic Medicine Physician: Facility vehicle Assistive Device Used Today: Wheelchair and Indra Lives with:: Care/Nursing Facility Appetite Description: Within Normal Limits Who helps w/ dressing change?: Nursing Facility Why Do You Need Help?: Can't Reach Ulcer, Limited mobility and Taxing effort to leave home Smoking Status: Former smoker [facility] Medical History (Updated 12/30/21 @ [...] 0.1 CM Sq: 38.500 Surrounding Tissue Appearance: [place] and Hyperpigmented Surrounding Tissue Temp: Warm Drainage [...] <Electronically signed by DAVID Aguilar> 12/30/21 [address] [facility] Work Phone: 1(302) 722-236711-15-2022 History of Present illness Narrative* Paresh Fonseca [...] the rehab facility He is currently at [facility] in [facility] Seen on video together with [...] has local wound care following this at [facility] WBC 6.0, creatinine -- 0.8. alt [...] by mouth daily with lunch. Magic Cup Leonard with lunch aspirin, enteric coated (ASPIRIN, ENTERIC [...] is a 76 year old male from [facility]. 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 History of PAD CAD status post CABG, diabetes, atrial fibrillatioN He originally presented [facility] for having altered mental status [...] Status post right open above the ankle [id number] - Enterobacter and MRSA from cultures Gram-positive [...] will need to coordinate with his SNF [phone] --our ID office will need to arrange for IR gerhard removal. Return to ID as needed 10 Minutes spent via virtual visit. 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 Thanks, Sulma Pardo Computer Aided Design Designer documented in this encounterThe Metrohealth System10-31-2022 Miscellaneous Notes* Telephone Encounter - Gwen Alfredo Adm Asst I - 12/15/2021 4:11 PM EDT Rupa LYLES from [facility] [phone] called to report IV Vancomycin was started until today. Patient missed 3 days, should patient makeup missed doses? Please advise. Gwen Alfredo Adm Asst I documented in this encounterThe Metrohealth System10-21-2022 Instructions* Patient Instructions* Paresh Fonseca MD - [...] serious illness Are taking any medications (prescription, vhrk-pmw-zkldywr, vitamins, or herbal products) How will I receive EVUSHELD? EVUSHELD consists of two investigational medicines, tixagevimab and cilgavimab. You will receive 1 dose of EVUSHELD, consisting of 2 separate injections (tixagevimab and cilgavimab). EVUSHELD will be given to you by your healthcare provider as 2 intramuscular injections, given one after the other. Viruses can change management time (mutate) and develop into a slightly [...] certain SARS-CoV-2 variants: Viruses can change management time (mutate) and develop into a slightly [...] treatment or prevention of COVID-19 go to https://www.fda.gov/axmtieefq-auyzgtkahynv-jya- response/obp-rgzgf-szcrxdtrrg-cpd-koanbr-urhkhtfkz/wxfurdujh-sdg-fmmfvsksweuwl for more information. It is your choice [...] not go away. Report side effects to [facility] [employer] at www.fda.gov/medwatch or call 2-201-GQQ-3878 or call [email or web address] . Additional Information If you have questions, visit the website or call the telephone number provided below. Website Telephone number [email or web address] How can I learn more about COVID-19? Ask your healthcare provider. Visit https://www.cdc.gov/COVID19 Contact your local or state public health department. What is an Emergency Use Authorization? The [place] FDA has made EVUSHELD (tixagevimab co-packaged with cilgavimab) available under an emergency access mechanism called an Emergency Use Authorization EUA. The EUA is supported by a [place] of Health and Human Service (HHS) declaration [...] monohydrate, polysorbate 80, sucrose, water. Distributed by: [employer] [place] Manufactured for: [employer] [place] [employer] 2021. All rightsreserved. documented in this encounterThe Metrohealth System10-21-2022 Miscellaneous Notes* Telephone Encounter - Paresh Fonseca MD - 12/05/2021 3:05 PM EDT Evusheld (tixagevimab/cilgavimab) Eligibility and Patient Discussion The patient agrees to receive Evusheld (tixagevimab 300 mg and cilgavimab 300 mg) at [place]. The patient verbalized understanding of repeating a COVID test 72 hours prior to the injections. called up patient in response to her [employer] message today she tested covid negative on a rapid test on Wednesday this week Discussed evushed fact sheet and she agrees to proceed she will retest again today to be scheduled for Friday 12/08 [facility] Paresh Fonseca MD documented in this encounterThe Metrohealth System10-03-2022 Instructions* Patient Instructions* No Reeder DO - 11/17/2021 4:26 PM EDT -- continue coumadin -- will get vascular ultrasound for vein and artery of your right leg -- will have you see my interventional cardiology partner regarding your peripheral artery disease and if your artery disease is impairing your wound healing for the leg ulcer documented in this encounterThe Metrohealth System10-03-2022 History of Present illness Narrative* No Reeder DO - 11/17/2021 3:53 PM EDT Images from the original note were not included. [facility] [place] [facility] Department of Cardiovascular Medicine SECTION [...] DVT scan. Leg elevation. No Reeder DO, [facility] Vascular Medicine documented in this encounterThe Metrohealth System08-16-2022 History of Past illness Narrative* Problem Noted Date Resolved Date Altered tissue perfusion documented as of this encounter (statuses as of 09/30/2021) [facility]-16-[facility] History of Past illness Narrative* Problem Noted Date Resolved Date Altered tissue perfusion documented as of this encounter (statuses as of 10/09/2021) [address]16-2022 History of Past illness Narrative* Problem Noted Date Resolved Date Altered tissue perfusion documented as of this encounter (statuses as of 11/18/2021) [address]16-2022 History of Past illness Narrative* Problem Noted Date Resolved Date Altered tissue perfusion documented as of this encounter (statuses as of 12/01/2021) [address]16-2022 History of Past illness Narrative* Problem Noted Date Resolved Date Altered tissue perfusion documented as of this encounter (statuses as of 12/05/2021) [address]16-2022 History of Past illness Narrative* Problem Noted Date Resolved Date Altered tissue perfusion 16/2 022 documented as of this encounter (statuses as of 12/08/2021) [address]16-2022 History of Past illness Narrative* Problem Noted Date Resolved Date Altered tissue perfusion 16/2 022 documented as of this encounter (statuses as of 12/08/2021) [address]16-2022 History of Past illness Narrative* Problem Noted Date Resolved Date Altered tissue perfusion 16/2 022 documented as of this encounter (statuses as of 12/12/2021) [address]16-2022 History of Past illness Narrative* Problem Noted Date Resolved Date Altered tissue perfusion 16/2 022 documented as of this encounter (statuses as of 12/15/2021) [address] [address] History of Past illness Narrative* Problem Noted Date Resolved Date Altered tissue perfusion 16/2 022 documented as of this encounter (statuses as of 12/16/2021) [address]16-2022 History of Past illness Narrative* Problem Noted Date Resolved Date Altered tissue perfusion 16/2 022 documented as of this encounter (statuses as of 12/31/2021) [address]16-2022 History of Past illness Narrative* Problem Noted Date Resolved Date Altered tissue perfusion 16/2 022 documented as of this encounter (statuses as of 01/13/2022) [address]16-2022 History of Past illness Narrative* Problem Noted Date Resolved Date Altered tissue perfusion 16/2 022 documented as of this encounter (statuses as of 01/20/2022) [place] [address] History of Past illness Narrative* Problem Noted Date Resolved Date Altered tissue perfusion 16/2 022 documented as of this encounter (statuses as of 02/06/2022) [address]16-2022 History of Past illness Narrative* Problem Noted Date Resolved Date Altered tissue perfusion 16/2 022 documented as of this encounter (statuses as of 02/20/2022) [address]16-2022 History of Past illness Narrative* Problem Noted Date Resolved Date Altered tissue perfusion 16/2 022 documented as of this encounter (statuses as of 02/26/2022) [address]16-[address]22 History of Past illness Narrative* Problem Noted Date Resolved Date Altered tissue perfusion documented as of this encounter (statuses as of 02/27/2022) [address]16[address]22 History of Past illness Narrative* Problem Noted Date Resolved Date Altered tissue perfusion documented as of this encounter (statuses as of 03/21/2022) [address]16-[address]22 History of Past illness Narrative* Problem Noted Date Resolved Date Altered tissue perfusion documented as of this encounter (statuses as of 03/30/2022) [address]16-[address]22 History of Past illness Narrative* Problem Noted Date Resolved Date Altered tissue perfusion documented as of this encounter (statuses as of 04/06/2022) [facility] History of Past illness Narrative* Problem Noted Date Resolved Date Altered tissue perfusion documented as of this encounter (statuses as of 05/13/2022) [address]16-[address]22 History of Past illness Narrative* Problem Noted Date Diagnosed Date Resolved Date Altered tissue perfusion documented as of this encounter (statuses as of 2022) [address]16-[address]22 History of Past illness Narrative* Problem Noted Date Diagnosed Date Resolved Date Altered tissue perfusion documented as of this encounter (statuses as of 10/29/2022) [facility] Miscellaneous Notes* Telephone Encounter - Katina Duque [...] to pharmacy. Katina Duque documented [facility] Miscellaneous Notes* Telephone Encounter - Van Olivarez APRN.CNP - 07/15/2021 9:50 AM EDT The following approved medication requests have been transmitted electronically. Signed Prescriptions Disp Refills predniSONE (DELTASONE) 5 mg tablet 90 tablet 3 Sig: TAKE 1 TABLET BY MOUTH EVERY DAY RILEY: No Authorizing Provider: VAN OLIVAREZ APRN.CNP * Telephone Encounter - Rosibel Yehleela Daniel - 07/15/2021 9:32 AM EDT Patient phones requesting refills as follows: Pending Prescriptions Disp Refills PREDNISONE 5 MG TABLET 90 tablet 3 Sig: TAKE 1 TABLET BY MOUTH EVERY DAY RILEY: Yes Please review and advise. Rosibel Fariba Adm documented in [facility] encounterThe [facility] Miscellaneous Notes* Telephone Encounter - Van Olivarez APRN.CNP - 06/05/2021 4:46 PM EDT Spoke with pt regarding latest results, scr. at baseline. TAC level 8.6 prev two levels in 5 range.He believes latest level would be 12hr trough. No changes for now, if next level >7, can consider if reduction appropriate. He understands. Van Olivarez APRN.CNP [facility] Diagnosis Screening for genitourinary condition Screening for other and unspecified genitourinary condition documented in this encounter [facility] note* Diagnosis Acute deep vein thrombosis (DVT) of proximal end of right lower extremity (HCC)- Primary PAD (peripheral artery disease) (HCC) Peripheral vascular disease, unspecified Nonhealing ulcer of heel (HCC) Anticoagulation management encounter Encounter for therapeutic drug monitoring documented in this encounter [facility] note* Diagnosis Encounter for prophylactic measures, unspecified- Primary documented in this encounter [facility] note* Diagnosis Kidney replaced by transplant- Primary documented in this encounter [facility] note* Diagnosis MRSA bacteremia- Primary Bacteremia Diabetic foot ulcer with osteomyelitis (HCC) Type II or unspecified type diabetes mellitus with other specified manifestations, not stated as uncontrolled ILIANA (acute kidney injury) ([facility]) Acute kidney failure, unspecified documented in this encounter [facility] note* Diagnosis Kidney replaced by transplant- Primary 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 senior living current use of immunosuppressive drug documented in this encounter [facility] note* Diagnosis Hx of BKA, right (HCC)- Primary PAD (peripheral artery disease) ([facility]) Peripheral vascular disease, unspecified Mixed hyperlipidemia [...] gangrene, with long-term current use of insulin ([facility]) Paroxysmal atrial fibrillation ([facility]) Atrial fibrillation documented in this encounter [facility] note* Diagnosis Screening for genitourinary condition Screening for other and unspecified genitourinary condition documented in this encounter [facility] note* Diagnosis Onset Date Resolution Status At high risk for skin breakdown chronic Diabetes chronic Fecal incontinence chronic Limited mobility chronic Poor appetite chronic Pressure ulcer of sacral region, unstageable chronic Candidiasis resolved [facility] Work Phone: Evaluation noteNo [facility] [employer] Other Evaluation note* Diagnosis Kidney replaced by transplant- Primary documented in this encounter [facility] note* Diagnosis 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 ([facility]/HCC) documented in this encounter [facility] HealthcareHistory general Narrative - Reported* Type Description [...] COLONOSCOPY 1995,2001, 2014 Hospitalization History see above [employer] Other Progress note Author Sadia Aguilar [facility] July 20, 2022 1:48pm Note Date/Time July 20, 2022 1:48p m [facility] EN[facility] [address] [place] [address] Wound Center Provider Note Signed Patient: Alex Almonte MR#: [id number] : 1945 Acct:[id number] Age/Sex: 76 / M Copies to: DO Sadia Whyte, FINANCIAL ENGINEER~ HPI Date of Visit Date of Visit: Date of Service: 07/20/2022 Time of Service: 13:46 Narrative HPI: 12/30/21 Alex is a 76 year old male presenting to [facility] wound care for aninitial visit for eval and treatment of a sacral/coccyx area pressure ulcer. He resides at [facility]. There is an ASSEMBLER BONDING present for the visit. Medicalhoney gel will [...] his brief that was cleaned by this marketing writer as well as another nursing staff [...] from initial visit here Mode of Arrival/ Thoracic Medicine Physician: Facility vehicle Assistive Device Used Today: Wheelchair and Indra Lives with:: Care/Nursing Facility Appetite Description: Within Normal Limits Who helps w/ dressing change?: Nursing Facility Why Do You Need Help?: Can't Reach Ulcer, Limited mobility and Taxing effort to leave home Smoking Status: Former smoker [facility] Medical History (Updated 03/03/22 @ [...] <Electronically signed by DAVID Aguilar> 07/20/22 [address] [facility] Work Phone: Reason for referral (narrative)* Outpatient Procedure (Routine) - Authorized Specialty Diagnoses / Procedures Referred By Felicia carreno [facility] Diagnoses PAD (peripheral artery disease) (HCC) Nonhealing ulcer of heel (HCC) Procedures US LEG ARTERIAL PERIPH UNL VAS LAB DUP-SCAN LXTR ART/ARTL BPGS UNI/LMTD STUDY No Reeder DO [address] [place] [id number] [facility] [address] [address] Referral ID Status Reason Start Date Expiration Date Visits Requested Visits Authorized [id number] Authorized Auto-Generat ed Referral 11/17/2021 11/17/2022 1 1 * Outpatient Procedure (Routine) - Authorized Specialty Diagnoses / Procedures Referred By Felicia carreno Referred To Contact [facility] Diagnoses Acute deep vein thrombosis (DVT) of proximal end of right lower extremity (HCC) Procedures US LEG VEIN DVT UNL VAS LAB DUP-SCAN XTR VEINS UNILATERAL/LIMITED STUDY No Reeder DO [address] [place] [address] [facility] [place] [address] Referral ID Status Reason Start Date Expiration Date Visits Requested Visits Authorized [id number] Authorized Auto-Generat ed Referral 11/17/2021 11/17/2022 1 1 * Consult, Test, Treat (Routine) - Authorized Specialty Diagnoses / Procedures Referred By Felicia carreno Referred To Contact Cardiology Diagnoses PAD (peripheral artery disease) (HCC) Nonhealing ulcer of heel (HCC) Procedures CONSULT TO CARDIOLOGY OFFICE/OUTPATIENT [facility] 60-74 MINUTES Savanah Marcelo MD [address] [place] [address] Referral ID Status Reason Start Date Expiration Date Visits Requested Visits Authorized [id number] Authorized PCP Requested Referral 11/17/2021 11/17/2022 1 1 [facility] Summary Purpose Family History No Family History Records Found Relationship Condition Age at Onset Recorded Date/T kartik father Aneurysm Unknown father Parkinson's disease Unknown Advance Directives No Advanced Directives Records FoundDocuments on File Type Date Recorded 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 Expl anation Advance Directive(s) Latest Code [...] Maker Relationship: M ajority of Adult Siblings (student services representative) DNR-CCA 09/26/2021 11:56 AM 10/01/2021 [...] Decision Maker Relationship: Majority of Adult Siblings (student services representative) Code Status History Code Status [...] and content) DATE CREATED AUTHOR 02/20/2021 [facility] DATE CREATED AUTHOR AUTHOR'S ORGANIZ ATION 07/25/2022 [facility] DATE CREATED AUTHOR AUTHOR'S ORGANIZ ATION 08/16/2022 [facility] DATE CREATED AUTHOR AUTHOR'S ORGANIZ ATION 01/14/2023 [facility] DATE CREATED AUTHOR AUTHOR'S ORGANIZ ATION 05/25/2023 [facility] DATE CREATED AUTHOR AUTHOR'S ORGANIZ ATION 06/19/2023 [facility] [employer] Source Comments (unrecognize d section and content) In the event this informatio n is protected by the Federal Confidentiality of Alcohol and Drug Abuse Patient Records regulations: The Federal rules restrict any use of the information to criminally investigate or prosecute any alcohol or drug abuse patient.[facility] the event this information is protected by the Federal Confidentiality of Alcohol and Drug Abuse Patient Records regulations: The Federal rules restrict any use of the information to criminally investigate or prosecute any alcohol or drug abuse patient.[facility] SystemIn the event this information is protected by the Federal Confidentiality of Alcohol and Drug Abuse Patient Records regulations: The Federal rules restrict any use of the information to criminally investigate or prosecute any alcohol or drug abuse patient.[facility] SystemIn the event this information is protected by the Federal Confidentiality of Alcohol and Drug Abuse Patient Records regulations: The Federal rules restrict any use of the information to criminally investigate or prosecute any alcohol or drug abuse patient.[facility] the event this information is protected by the Federal Confidentiality of Alcohol and Drug Abuse Patient Records regulations: The Federal rules restrict any use of the information to criminally investigate or prosecute any alcohol or drug abuse patient.[facility] the event this information is protected by the Federal Confidentiality of Alcohol and Drug Abuse Patient Records regulations: The Federal rules restrict any use of the information to criminally investigate or prosecute any alcohol or drug abuse patient.[facility] SystemIn the event this information is protected by the Federal Confidentiality of Alcohol and Drug Abuse Patient Records regulations: The Federal rules restrict any use of the information to criminally investigate or prosecute any alcohol or drug abuse patient.[facility]In the event this information is protected by the Federal Confidentiality of Alcohol and Drug Abuse Patient Records regulations: The Federal rules restrict any use of the information to criminally investigate or prosecute any alcohol or drug abuse patient.[facility] SystemIn the event this information is protected by the Federal Confidentiality of Alcohol and Drug Abuse Patient Records regulations: The Federal rules restrict any use of the information to criminally investigate or prosecute any alcohol or drug abuse patient.[facility] SystemIn the event this information is protected by the Federal Confidentiality of Alcohol and Drug Abuse Patient Records regulations: The Federal rules restrict any use of the information to criminally investigate or prosecute any alcohol or drug abuse patient.[facility] SystemIn the event this information is protected by the Federal Confidentiality of Alcohol and Drug Abuse Patient Records regulations: The Federal rules restrict any use of the information to criminally investigate or prosecute any alcohol or drug abuse patient.[facility] SystemIn the event this information is protected by the Federal Confidentiality of Alcohol and Drug Abuse Patient Records regulations: The Federal rules restrict any use of the information to criminally investigate or prosecute any alcohol or drug abuse patient.[facility] SystemIn the event this information is protected by the Federal Confidentiality of Alcohol and Drug Abuse Patient Records regulations: The Federal rules restrict any use of the information to criminally investigate or prosecute any alcohol or drug abuse patient.[facility] SystemIn the event this information is protected by the Federal Confidentiality of Alcohol and Drug Abuse Patient Records regulations: The Federal rules restrict any use of the information to criminally investigate or prosecute any alcohol or drug abuse patient.[facility] SystemIn the event this information is protected by the Federal Confidentiality of Alcohol and Drug Abuse Patient Records regulations: The Federal rules restrict any use of the information to criminally investigate or prosecute any alcohol or drug abuse patient.[facility] SystemIn the event this information is protected by the Federal Confidentiality of Alcohol and Drug Abuse Patient Records regulations: The Federal rules restrict any use of the information to criminally investigate or prosecute any alcohol or drug abuse patient.[facility] SystemIn the event this information is protected by the Federal Confidentiality of Alcohol and Drug Abuse Patient Records regulations: The Federal rules restrict any use of the information to criminally investigate or prosecute any alcohol or drug abuse patient.[facility] SystemIn the event this information is protected by the Federal Confidentiality of Alcohol and Drug Abuse Patient Records regulations: The Federal rules restrict any use of the information to criminally investigate or prosecute any alcohol or drug abuse patient.[facility] SystemIn the event this information is protected by the Federal Confidentiality of Alcohol and Drug Abuse Patient Records regulations: The Federal rules restrict any use of the information to criminally investigate or prosecute any alcohol or drug abuse patient.[facility] SystemIn the event this information is protected by the Federal Confidentiality of Alcohol and Drug Abuse Patient Records regulations: The Federal rules restrict any use of the information to criminally investigate or prosecute any alcohol or drug abuse patient.[facility] SystemIn the event this information is protected by the Federal Confidentiality of Alcohol and Drug Abuse Patient Records regulations: The Federal rules restrict any use of the information to criminally investigate or prosecute any alcohol or drug abuse patient.[facility] SystemIn the event this information is protected by the Federal Confidentiality of Alcohol and Drug Abuse Patient Records regulations: The Federal rules restrict any use of the information to criminally investigate or prosecute any alcohol or drug abuse patient.[facility] SystemIn the event this information is protected by the Federal Confidentiality of Alcohol and Drug Abuse Patient Records regulations: The Federal rules restrict any use of the information to criminally investigate or prosecute any alcohol or drug abuse patient.[facility] SystemIn the event this information is protected by the Federal Confidentiality of Alcohol and Drug Abuse Patient Records regulations: The Federal rules restrict any use of the information to criminally investigate or prosecute any alcohol or drug abuse patient.[facility]In the event this information is protected by the Federal Confidentiality of Alcohol and Drug Abuse Patient Records regulations: The Federal rules restrict any use of the information to criminally investigate or prosecute any alcohol or drug abuse patient.[facility] SystemIn the event this information is protected by the Federal Confidentiality of Alcohol and Drug Abuse Patient Records regulations: The Federal rules restrict any use of the information to criminally investigate or prosecute any alcohol or drug abuse patient.[facility] Reason for Visit (unrecogniz ed section and [...] Care Teams (unrecognized sec tion and content) Medical Office Specialist Relationship Specialty Start Date End Date Devon Moreira, DO [address] [place] [id number] PCP - General 05/27/00 Medical Office Specialist Relationship Specialty Start Date End Date Devon Moreira, DO [address] [place] [address] PCP - General 05/27/00 Medical Office Specialist Relationship Specialty Start Date End Date Devon Moreira, DO [address] [place] [address] PCP - General 05/27/00 Medical Office Specialist Relationship Specialty Start Date End Date Devon Moreira, DO [address] [place] [id number] PCP - General 05/27/00 Medical Office Specialist Relationship Specialty Start Date End Date Devon Moreira, DO [address] [place] [address] PCP - General 05/27/00 Medical Office Specialist Relationship Specialty Start Date End Date Devon Moreira, DO [address] [place] [address] PCP - General 05/27/00 Medical Office Specialist Relationship Specialty Start Date End Date Devon Moreira, DO [address] [place] [address] PCP - General 05/27/00 Medical Office Specialist Relationship Specialty Start Date End Date Devon Moreira, DO [address] [place] [address] PCP - General 05/27/00 Medical Office Specialist Relationship Specialty Start Date End Date Devon Moreira, DO [address] [place] [address] PCP - General 05/27/00 Medical Office Specialist Relationship Specialty Start Date End Date Devon Moreira, DO [address] [place] [address] PCP - General 05/27/00 Medical Office Specialist Relationship Specialty Start Date End Date Devon Moreira, DO [address] [place] [address] PCP - General 05/27/00 Medical Office Specialist Relationship Specialty Start Date End Date Devon Moreira, DO [address] [place] [address] PCP - General 05/27/00 Medical Office Specialist Relationship Specialty Start Date End Date Devon Moreira, DO [address] [place] [address] PCP - General 05/27/00 Medical Office Specialist Relationship Specialty Start Date End Date Devon Moreira, DO [address] [facility] [place] [address] PCP - General 05/27/00 Medical Office Specialist Relationship Specialty Start Date End Date Devon Moreira, DO [address] [facility] [place] [address] PCP - General 05/27/00 Medical Office Specialist Relationship Specialty Start Date End Date Devon Moreira, DO [address] [facility] [place] [address] PCP - General 05/27/00 Medical Office Specialist Relationship Specialty Start Date End Date Devon Moreira, DO [address] [facility] [place] [address] PCP - General 05/27/00 Medical Office Specialist Relationship Specialty Start Date End Date Devon Moreira, DO [address] [facility] [place] [address] PCP - General 05/27/00 Medical Office Specialist Relationship Specialty Start Date End Date Devon Moreira, DO [address] [facility] [place] [address] PCP - General 05/27/00 Team Status: Active Member Role Status Dates Devon Moreira DO Primary Care Provider Active Team Status: Inactive Member Role Status Dates Devon Moreira DO Primary Care Provider Active Sadia Aguilar APRN Attending Provider Active Medical Office Specialist Relationship Specialty Start Date End Date Devon Moreira, DO [address] [facility] [place] [address] PCP - General 05/27/00 Medical Office Specialist Relationship Specialty Start Date End Date Devon Moreira, DO [address] [facility] [place] [address] PCP - General 05/27/00 Medical Office Specialist Relationship Specialty Start Date End Date Ni Cabrera DO [address] [place] [address] PCP - ACO Reach 07/09/22 Devon Moreira MD [address] [facility] [place] [id number] PCP - General Internal Medicine 07/14/22 PRN Active and Recently Administ ered Medications (unrecognized section and content) Medication Order 01/10/2022 01/11/2022 01/12/2022 lidocaine (PF) 10 mg/mL (1 %) injection (XYLOCAINE) SUBCUTANEOUS, X (OR/PROCEDURE) PRN, Starting on 01/12/22 at 1032, Until Tu01/13/22 at 0303, Intraprocedure 1032 (Given - Provid er: Vani Hdz APRN.ELECTRICAL DISCHARGE MACHINE OPERATOR) Goals (unrecognized section and content) Goals [...] BE BASED ON THE PRIMARY CLINICAL RECORDS. [employer] provides no warranty or guarantee of the accuracy or completeness of information in this document.
[2023-06-30 07:30] LABS: Basophils Absolute Auto 0.1 10^3/uL (0.0-0.1); Basophils Percent Auto 0.9 % (0.2-2.0); Eosinophils Absolute Auto 0.3 10^3/uL (0.0-0.7); Eosinophils Percent Auto 3.8 % (0.9-7.0); Hematocrit 29.7 % (42.0-54.0); Hemoglobin 9.1 g/dL (14.0-18.0); Immature Granulocytes Abs Auto 0.02 10^3/uL (0.00-0.03); Immature Granulocytes Pct Auto 0.3 % (0.0-0.5); Lymphocytes Absolute Auto 2.6 10^3/uL (1.2-3.8); Lymphocytes Percent Auto 34.4 % (20.5-60.0); Mean Corpuscular HGB Conc 30.6 g/dL (29.9-35.2); Mean Corpuscular Volume 81.6 fL (80.0-94.0); Mean Platelet Volume 10.4 fL (9.5-13.5); Monocytes Absolute Auto 0.9 10^3/uL (0.3-0.8); Monocytes Percent Auto 11.3 % (1.7-12.0); Neutrophils Absolute Auto 3.8 10^3/uL (1.4-6.5); Neutrophils Percent Auto 49.3 % (43.0-75.0); Platelet Count 213 10^3/uL (150-450); Red Blood Count 3.64 10^6/uL (4.70-6.10); Red Cell Distribution Width 15.7 % (11.0-15.0); White Blood Count 7.6 10^3/uL (4.0-11.0)
[2023-06-30 08:07] LABS: INR 2.53; Prothrombin Time 24.5 sec (9.0-11.6)
[2023-06-30 08:50] LABS: Alanine Aminotransferase 13 U/L (16-63); Albumin Globulin Ratio 0.8; Albumin Level 2.6 g/dL (3.4-5.0); Alkaline Phosphatase 80 U/L (46-116); Anion Gap 10.9; Aspartate Amino Transferase 16 U/L (15-37); BUN Creatinine Ratio 33.3; Bilirubin Total 0.7 mg/dL (0.2-1.0); Calcium 8.6 mg/dL (8.5-10.1); Carbon Dioxide 27.8 mmol/L (21.0-32.0); Chloride 103 mmol/L (98-107); Estimated GFR (African America >60 (>=60); Estimated GFR (Non-African Ame 51 (>=60); Globulin 3.2 g/dL; Glucose 205 mg/dL (74-106); Potassium 3.7 mmol/L (3.5-5.1); Sodium 138 mmol/L (136-145); Total Protein 5.8 g/dL (6.4-8.2)
[2023-07-02 18:07] LABS: Tacrolimus (FK506), Blood 7.2 ng/mL (2.0-20.0)
== END 2023-06-30 01:55 | disposition home or self-care (01) ==
LOC: LAB 01:54
PROVIDERS: PCP Internal Medicine; Visit Provider Internal Medicine
DX: N18.9 Chronic kidney disease, unspecified (principal)
CPT/HCPCS: 36415; 80053; 80197; 85025; 85610

== ENCOUNTER 2023-07-07 01:49 | Outpatient (REF) | payer MEDICARE, OTHER, SELFPAY ==
--- OUTSIDE RECORDS SUMMARY | 2023-07-07 01:56 | XMS_ITS | CCD ---
Author Organization [facility] Care Team Providers Care Coke Oven Mason Name Role Phone PROVIDER, UNKNOWN Attending Unavailable [...] POLANCO Consulting Unavailable ASHLEY GARIBAY Admitting Unavailable PHOENIX, ASHLEY Cortes Attending Unavailable MARIAELENA, DR RICH Hernandez Consulting Unavailable LILLIE, DR TAM Primary Care Unavailable ASHLEY GARIBAY Consulting Unavailable LILLIE, DR TAM Primary Care Unavailable BROTHERS, BRANDI Attending Unavailable BROTHERS, BRANDI Admitting Unavailable BROTHERS, BRANDI Consulting Unavailable BALL, DR TAM Consulting Unavailable BALL, DR TAM Attending Unavailable BALL, DR TAM Admitting Unavailable BALL, DR TAM Primary Care Unavailable LILLIE, DR TAM Consulting Unavailable LILLIE, DR TAM Attending Unavailable BALL, DR TAM Admitting Unavailable BALL, DR TAM Primary Care Unavailable SHAIKH Kate MURRAY Attending Unavailable SHAIKH Kate MURRAY Admitting Unavailable LILLIE, DR TAM Primary Care Unavailable SHAIKH Kaet MURRAY Attending Unavailable SHAIKH Kate MURRAY Admitting [...] BALL, DR TAM Primary Care Unavailable NICOLÁS Cheng, DR CENTENO Consulting Unavailable MARIAELENA, DR RICH Hernandez Consulting Unavailable KRISHNA, DR CURRY Carmona Consulting Unavailable ASHLEY GARIBAY Procedure Practitioner Unava ilable ASHLEY GARIBAY Consulting Unavailable NICOLÁS Cheng, DR CENTENO Procedure Practitioner Unavail able MARCELINO CASTANO Consulting Unavailable NO FLORES Consulting Unavailable KANCHAN .MARY ANN Consulting Unavailable WILLARDAMOLCYN Douglas Consulting Unavailable ALYSON .PARAMJIT Consulting Unavailable CONSTANTIN BALL Consulting Unavailable ANNALEE [...] Unavailable DO Devon Moreira Primary Care Provider [phone] DAVID Aguilar Attending Provider Sadia Aguilar Attending Unavailable Sadia Aguilar Admitting Unavailable Devon Moreira Primary Care Unavailable DEVON MOREIRA Referring Unavailable HINA PETERSON Attending Unavailable DEVON MOREIRA Primary Care Unavailable ARTUR CHEN Referring Unavailable DEVON MOREIRA Primary Care Unavailable iN Cabrera DO Unavailable Devon Moreira MD Primary Care Provider CAITY IBRAHIM Attending Unavailable MILAGRO QUEEN Referring Unavailable SARTHAK PARNELL Attending Unavailable NI CABRERA Attending Unavailable DEVON MOREIRA Referring Unavailable NI CABRERA Attending Unavailable DEVON MOREIRA Referring Unavailable Allergies Allergy Classification Reported Allergen(s) Allergy Type Date of Onset Reaction(s) Facility (20 sources) Pyridostigmine; Translations: [PYRIDOSTIGMINE BROMIDE] Drug Allergy 2 GI Upset [facility] Work Phone: (1 source) Pyridostigmine Drug Allergy [...] Indications: Type 1 diabetes mellitus with nephropathy ([facility]) 3 units breakfast, 5 units [...] 10 units and notify provider K Phos Storey-Sod Phos Di & Storey 155-852-130 MG (6 sources) take 155-852 tablets by mouth twice daily K Phos Storey-Sod Phos Di & Storey 155-852-130 MG 1 tablet Orally twice daily Active take 155-852 tablets by mouth four times daily take 155-852 tablets by mouth four times daily K Phos Storey-Sod Phos Di & Storey 155-852-130 MG 1 tablet Orally Four times [...] by mouth daily with lunch. Magic Cup Baldwin with lunch 7110 mL 0 12/11/2021 Active Comment on above: Take 237 mL by mouth daily with lunch. 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) use of insulin] Episodic Other aftercare (10 sources) FPC (current) use of insulin; Translations: [NON DESTRUCTIVE TESTING SUPERVISOR CURRENT USE OF INSULIN] Onset: 2 Episodic Other aftercare (5 sources) [facility]PC (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 of anticoagulants; Translations: [HALF-WAY CURRNT USE ANTICOAGULANTS] Onset: 3 Episodic Other [...] care home (current) drug therapy; Translations: [OTH HALF-WAY CURRENT DRUG THERAPY] Onset: 02-05-2022 Episodic Other aftercare (4 sources) Encounter for orthopedic aftercare following surgical amputation; Translations: [ENC ORTHOPED AFTERCARE FLW SURG AMP] Onset: 02-05-2022 Episodic Other aftercare (4 sources) FPC (current) use of antibiotics; Translations: [NON DESTRUCTIVE TESTING SUPERVISOR CURRENT USE ANTIBIOTICS] Onset: 12-20-2021 Episodic Other aftercare (1 source) FPC (current) use of aspirin; Translations: [NON DESTRUCTIVE TESTING SUPERVISOR CURRENT USE OF ASPIRIN] Onset: 01-19-2022 [...] Range Facility Office Visiton 05-19-2023 Follow-up visit [id number] Alex Almonte 1945 M Date Provider Department Center 05/19/2023 CAITY PALACIOS CARD [facility] Family History Problem Relation Age of Onset Cancer Mother Aneurysm Father Cancer Father Parkinsonism Father Family Status - Relation Status Age at Mother Father Level of Service:18587 PA OFFICE/OUTPATIENT ESTABLISHED LOW MDM 20 MIN Reason for Visit and Comments: Follow-up [063630] - 6 month follow up Normal [facility] HbA1c (Bld) [Mass fraction]o n 03-18-2023 Interpretation and review of laboratory results Normal [facility] [employer] POCT glycosylated hemoglobin (Hb A1C) docked deviceon 03-18-2023 HbA1c (Bld) [Mass fraction] 7.8 % [facility] CNPNon 12-25-2022 CNPN Telephone (TXCTGL) ALEX ALMONTE ([id number]) 1945 M Date Time Provider Department 12/25/22 KIDNEY TXP COORDINATORS TXCTGL During your visit today, we recorded the following information about you: Duane Ryan 12/25/2022 10:41 AM Signed Labs 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 Administrative Automated Teller Manager Allergies As of Date: 12/25/2022 Noted [...] by mouth daily with lunch. 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 Take one (1) tablet insulin lispro 100 unit/mL injection Inject 6 [...] by mouth daily with lunch. Magic Cup Baldwin with lunch aspirin, enteric coated (ASPIRIN, ENTERIC [...] Pts RN at [facility] reports pts sister picks up [...] Apply 0. (more content not included)... Normal [facility] Office Visiton 09-09-2022 Follow-up visit [id number] Alex Almonte Kate 1945 M Date Provider Department Center 09/09/2022 1596-SARTHAK PARNELL CARD [facility] Family History Problem Relation Age of Onset Cancer Mother Aneurysm Father Cancer Father Parkinsonism Father Family Status - Relation Status Age at Mother Father Level of Service:23624 PA OFFICE/OUTPATIENT ESTABLISHED MOD MDM 30-39 MIN Normal [facility] Glucose Poct Glucometerson 0 07-20-2022 Commemt1 Glu2: Cleaned Meter Normal [facility] Comment on above: Result Comment: PERF ORMED BY: [facility] [address] [place] [address] PATHOLOGIST RIVETER HAND JOSE F ELLIOTT M.D. Performed By: #### G MADY #### Point of Care testing , Glucose [Mass/Vol] 176 mg/dL Normal [facility] Comment on above: Result Comment: [facility] Glucose Reference Range is dependent on time and content of last meal. Glucose of more than 200 mg/dL in a nonstressed, ambulatory subject supports the diagnosis of Diabetes Mellitus. Performed By: #### G MADY #### Point of Care testing , FK506 (TACROLIMUS) WHOLE BLO ODon 07-12-2022 Tacrolimus (FK506), Blood 10.9 ng/mL Normal 2.0-20.0 [facility] Comment on above: Result Comment: Trou gh (immediately following transplant) 15.0 . Trough (steady state, 2 weeks or more after transplant): 3.0 - 8.0 . Performed by LC-MS/MS technology. Performed By: #### F K506T ####[facility] [address] [place], [place] [address]Dr. Farhat Leal CBC AUTO DIFFon 07-10-2022 BASO # 0.0 103/ul Normal 0.0-0.1 [facility] Comment on above: Performed By: #### C BC ####[facility] [address] [place], [place] [address]Dr. Farhat Leal Basophils/100 WBC (Bld) 0.5 % Normal 0.2-2.0 [facility] Comment on above: Performed By: #### C BC ####[facility] [address] [place], [place] [address]Dr. Farhat Leal EO # 0.3 103/ul Normal 0.0-0.7 [facility] Comment on above: Performed By: #### C BC ####[facility] [address] [place], [place] [address]Dr. Farhat Leal Eosinophils/100 WBC (Bld) 4.9 % Normal 0.9-7.0 [facility] Comment on above: Performed By: #### C BC ####[facility] Q[address]ox[address] [place], [place] [address]Dr. Farhat Leal Erythrocyte distribution width (RBC) [Ratio] 13.8 % Normal 11.0-15.0 [facility] Comment on above: Performed By: #### C BC ####[facility] [address] [place] [address]Dr. Farhat Leal Hematocrit (Bld) [Volume fraction] 36.6 % Critically low 42.0-54.0 [facility] Comment on above: Performed By: #### C BC ####[facility] E[address] [place], [place] [address]Dr. Farhat Leal Hemoglobin (Bld) [Mass/Vol] 12.2 g/dL Critically low 14.0-18.0 [facility] Comment on above: Performed By: #### C BC ####[facility] [address] [place], [place] [address]Dr. Farhat Leal IG # 0.01 10e3/ul Normal 0.00-0.03 [facility] Comment on above: Performed By: #### C BC ####[facility] [address] [place], [place] [address]Dr. Farhat Leal IG % 0.2 % Normal 0.0-0.5 [facility] Comment on above: Performed By: #### C BC ####[facility] Ll[address]cv[address] [place], [place] [address]Dr. Farhat Leal LYMPH # 2.2 103/ul Normal 1.2-3.8 [facility] Comment on above: Performed By: #### C BC ####[facility] [address] [place], [place] [address]Dr. Farhat Leal Lymphocytes/100 WBC (Bld) 33.9 % Normal 20.5-60.0 [facility] Comment on above: Performed By: #### C BC ####[facility] [address] [place], [place] [address]Dr. Farhat Elvis MANUAL DIFF REQ NO Normal [facility] Comment on above: Performed By: #### C BC ####[facility] [address]se[address] [place], [place] [address]Dr. Farhat Elvis MCH (RBC) [Entitic mass] 31.0 pg Normal 25.9-34.0 [facility] Comment on above: Performed By: #### C BC ####[facility] [address] [place] [address]Dr. Farhat Leal MCHC (RBC) [Mass/Vol] 33.3 g/dL Normal 29.9-35.2 [facility] Comment on above: Performed By: #### C BC ####[facility] Mr[address] [place], [place] [address]Dr. Farhat Elvis MCV (RBC) [Entitic vol] 93.1 fL Normal 80.0-94.0 [facility] Comment on above: Performed By: #### C BC ####[facility] An[address] [place], [place] [address]Dr. Farhat Leal MONO # 0.7 103/ul Normal 0.3-0.8 [facility] Comment on above: Performed By: #### C BC ####[facility] [address] [place], [place] [address]Dr. Madelynlorri Leal Monocytes/100 WBC (Bld) 10.8 % Normal 1.7-12.0 [facility] Comment on above: Performed By: #### C BC ####[facility] [address] [place], [place] [address]Dr. Farhat Elvis NEUT # 3.2 103/ul Normal 1.4-6.5 [facility] Comment on above: Performed By: #### C BC ####[facility] [address] [place], [place] [address]Dr. Madelynlorri Leal Neutrophils/100 WBC (Bld) 49.7 % Normal 43.0-75.0 [facility] Comment on above: Performed By: #### C BC ####[facility] Z[address]va[address] [place], [place] [address]Dr. Madelynlorri Leal Platelet mean volume (Bld) [Entitic vol] 10.9 fL Normal 9.5-13.5 [facility] Comment on above: Performed By: #### C BC ####[facility] [address] [place], [place] [address]Dr. Farhat Leal PLT 195 103/ul Normal 150-450 [facility] Comment on above: Performed By: #### C BC ####[facility] [address] [place] [address]Dr. Farhat Leal RBC 3.93 106/ul Critically low 4.70-6.10 [facility] Comment on above: Performed By: #### C BC ####[facility] [address]os[address] [place] [address]Dr. Farhat Leal WBC 6.4 103/ul Normal 4.0-11.0 [facility] Comment on above: Performed By: #### C BC ####[facility] [address] [place] [address]Dr. Farhat Leal MAGNESIUMon 07-10-2022 Magnesium [Mass/Vol] 1.9 mg/dL Normal 1.8-2.4 [facility] Comment on above: Performed By: #### M HENRI Manzo ####[facility] [address] [place], [place] [address]Dr. Farhat Leal PHOSPHORUSon 07-10-2022 Phosphate [Mass/Vol] 4.7 mg/dL Normal 2.6-4.7 [facility] Comment on above: Performed By: #### EHNRI Winters ####[facility] [address] [place] [address]Dr. Farhat Elvis PROF 14(COMP METB)on 023 Albumin [Mass/Vol] 2.7 g/dL Critically low 3.4-5.0 [facility] Comment on above: Performed By: #### C MP ####[facility] [address] [place] [address]Dr. Farhat Leal Albumin/Globulin [Mass ratio] 0.8 {ratio} Normal [facility] Comment on above: Performed By: #### C MP ####[facility] [address] [place] [address]Dr. Farhat Leal ALP [Catalytic activity/Vol] 59 U/L Normal 46-116 [facility] Comment on above: Performed By: #### C MP ####[facility] [address] [place] [id number]. Farhat Leal ALT [Catalytic activity/Vol] 16 U/L Normal 16-63 [facility] Comment on above: Performed By: #### C MP ####[facility] [address]kt[address] [place] [address]Dr. Farhat Leal Anion gap [Moles/Vol] 12.3 mmol/L Normal [facility] Comment on above: Performed By: #### C MP ####[facility] [address]cal[address] [place] [id number]. Farhat Leal AST [Catalytic activity/Vol] 17 U/L Normal 15-37 [facility] Comment on above: Performed By: #### C MP ####[facility] [address]ex[address]vpgl[address] [place] [address]Dr. Farhat Leal Bilirubin [Mass/Vol] 0.5 mg/dL Normal 0.2-1.0 [facility] Comment on above: Performed By: #### C MP ####[facility] [address]ev[address]avg[address] [place] [id number]. Farhat Leal Calcium [Mass/Vol] 8.5 mg/dL Normal 8.5-10.[address] [facility] Comment on above: Performed By: #### C MP ####[facility] [address]wp[address] [place] [id number]. Farhat Leal Chloride [Moles/Vol] 104 mmol/L Normal 98-107 [facility] Comment on above: Performed By: #### C MP ####[facility] [address]ids[address] [place] [id number]. Farhat Leal CO2 [Moles/Vol] 27.6 mmol/L Normal 21.0-32.0 [facility] Comment on above: Performed By: #### C MP ####[facility] [address] [place], [place] [address]Dr. Farhat Leal Creatinine [Mass/Vol] 1.79 mg/dL Critically high 0.70-1.30 [facility] Comment on above: Performed By: #### C MP ####[facility] [address] [place], [place] [address]Zy. Farhat Leal EGFR-AF BRITISH 45 mL/min/1.73m2 Critically low >=60 [facility] Comment on above: Performed By: #### C MP ####[facility] [address] [place] [id number]. Farhat Leal EGFR-NON AF BRITISH 37 mL/min/1.73m2 Critically low >=60 [facility] Comment on above: Performed By: #### C MP ####[facility] [address] [place] [id number]. Farhat Leal Globulin (S) [Mass/Vol] 3.2 g/dL Normal [facility] Comment on above: Performed By: #### C MP ####[facility] [address] [place] [id number]. Farhat Leal Glucose [Mass/Vol] 203 mg/dL Critically high 74-106 [facility] Comment on above: Performed By: #### C MP ####[facility] [address] [place] [id number]. Farhat Leal Potassium [Moles/Vol] 3.9 mmol/L Normal 3.5-5.1 [facility] Comment on above: Performed By: #### C MP ####[facility] Tr[address]pj[address] [place] [id number]. Farhat Leal Protein [Mass/Vol] 5.9 g/dL Critically low 6.4-8.2 [facility] Comment on above: Performed By: #### C MP ####[facility] [address]em[address]oh[address] [place] [id number]. Farhat Leal Sodium [Moles/Vol] 140 mmol/L Normal 136-[address] [facility] Comment on above: Performed By: #### C MP ####[facility] Oxvtsxjxwu5366 [place] [id number]. Farhat Leal Urea nitrogen [Mass/Vol] 61.0 mg/dL Critically high 7.0-18.0 [facility] Comment on above: Performed By: #### C MP ####[facility] [address] [place] [address]Dr. Farhat Leal Urea nitrogen/Creatinine [Mass ratio] 34.1 mg/mg Normal [facility] Comment on above: Performed By: #### C MP ####[facility] [address] [place] [address]Dr. Farhat Leal PROTIMEon 07-10-2022 INR Coag (PPP) [Relative time] 2.95 {INR} Normal [facility] Comment on above: Performed By: #### P T ####[facility] [address]hc[address] [place], [place] [address]Dr. Farhat Leal INR GUIDELINES SEE BELOW Normal [facility] Comment on above: Result Comment: MALINA RED INR: 2.0 - 3.0 CONDITIONS NOT LISTED BELOW 2.5 - 3.5 FOR PROSTHETIC HEART VALVE REPLACEMENT 2.5 - 3.5 RECURRENT THROMBOSIS Performed By: #### P T ####[facility] [address] [place], [place] [address]Dr. Farhat Leal PT Coag (PPP) [Time] 29.4 s Critically high 9.0-11.6 [facility] Comment on above: Performed By: #### P T ####[facility] [address] [place] [address]. Farhat Leal FK506 (TACROLIMUS) WHOLE BLO ODon 07-07-2022 Tacrolimus (FK506), Blood 8.3 ng/mL Normal 2.0-20.0 [facility] Comment on above: Result Comment: Trou gh (immediately following transplant) 15.0 . Trough (steady state, 2 weeks or more after transplant): 3.0 - 8.0 . Performed by LC-MS/MS technology. Performed By: #### F K506T ####[facility] [address] [place], [place] [address]Dr. Farhat Leal CBC AUTO DIFFon 07-03-2022 BASO # 0.0 103/ul Normal 0.0-0.1 [facility] Comment on above: Performed By: #### C BC ####[facility] [address] [place] [address]. Farhat Leal Basophils/100 WBC (Bld) 0.6 % Normal 0.2-2.0 [facility] Comment on above: Performed By: #### C BC ####[facility] [address]rm[address] [place] [address]Dr. Farhat Leal EO # 0.3 103/ul Normal 0.0-0.7 [facility] Comment on above: Performed By: #### C BC ####[facility] [address] [place], [place] [address]Dr. Farhat Leal Eosinophils/100 WBC (Bld) 4.1 % Normal 0.9-7.0 [facility] Comment on above: Performed By: #### C BC ####[facility] [address] [place], [place] [address]Dr. Farhat Leal Erythrocyte distribution width (RBC) [Ratio] 14.0 % Normal 11.0-15.0 [facility] Comment on above: Performed By: #### C BC ####[facility] [address] [place], [place] [address]Dr. Farhat Leal Hematocrit (Bld) [Volume fraction] 35.9 % Critically low 42.0-54.0 [facility] Comment on above: Performed By: #### C BC ####[facility] [address] [place], [place] [address]Dr. Farhat Leal Hemoglobin (Bld) [Mass/Vol] 12.0 g/dL Critically low 14.0-18.0 [facility] Comment on above: Performed By: #### C BC ####[facility] Xi[address]cf[address] [place], [place] [address]Dr. Farhat Leal IG # 0.04 10e3/ul Critically high 0.00-0.[address] [facility] Comment on above: Performed By: #### C BC ####[facility] Ms[address] [place], [place] [address]Dr. Farhat Leal IG % 0.6 % Critically high 0.0-0.5 [facility] [place] [facility] Comment on above: Performed By: #### C BC ####[facility] [address] [place] [id number]. Farhat Elvis LYMPH # 1.5 103/ul Normal 1.2-3.8 [facility] Comment on above: Performed By: #### C BC ####[facility] [address] [place] [id number]. Farhat Elvis Lymphocytes/100 WBC (Bld) 21.5 % Normal 20.5-60.0 [facility] Comment on above: Performed By: #### C BC ####[facility] [address]jj[address] [place] [address]Dr. Madelynlorri Leal MANUAL DIFF REQ NO Normal [facility] [place] [facility] Comment on above: Performed By: #### C BC ####[facility] [address]wen[address] [place] [address]Dr. Farhat Elvis MCH (RBC) [Entitic mass] 30.8 pg Normal 25.9-34.0 [facility] Comment on above: Performed By: #### C BC ####[facility] [address]ftvcbe[address] [place] [address]Dr. Farhat Elvis MCHC (RBC) [Mass/Vol] 33.4 g/dL Normal 29.9-35.2 [facility] Comment on above: Performed By: #### C BC ####[facility] [address] [place] [address]Dr. Madelynlorri Leal MCV (RBC) [Entitic vol] 92.1 fL Normal 80.0-94.0 [facility] Comment on above: Performed By: #### C BC ####[facility] [address]zneuttha[address] [place] [address]Dr. Farhat Elvis MONO # 0.6 103/ul Normal 0.3-0.8 [facility] Comment on above: Performed By: #### C BC ####[facility] [address]exfwdp[address] [place] [address]Dr. Madelynlorri Leal Monocytes/100 WBC (Bld) 8.7 % Normal 1.7-12.0 [facility] Comment on above: Performed By: #### C BC ####[facility] [address]yme[address] [place] [id number]. Farhat Leal NEUT # 4.4 103/ul Normal 1.4-6.5 [facility] Comment on above: Performed By: #### C BC ####[facility] [address]bf[address] [place] [id number]. Farhat Leal Neutrophils/100 WBC (Bld) 64.5 % Normal 43.0-75.0 [facility] Comment on above: Performed By: #### C BC ####[facility] Wek[address]dbilz[address] [place] [address]Dr. Farhat Leal Platelet mean volume (Bld) [Entitic vol] 10.1 fL Normal 9.5-13.5 [facility] Comment on above: Performed By: #### C BC ####[facility] Aiwrtutwqn7[address] [place] [address]Dr. Farhat Elvis PLT 177 103/ul Normal 150-450 [facility] Comment on above: Performed By: #### C BC ####[facility] Nskewcobfo2404 [place] [address]Dr. Farhat Elvis RBC 3.90 106/ul Critically low 4.70-6.10 The [facility] Comment on above: Performed By: #### C BC ####[facility] Lcaxtthwgb16[address] [place] [address]Dr. Farhat Elvis WBC 6.8 103/ul Normal 4.0-11.0 [facility] Comment on above: Performed By: #### C BC ####[facility] Uzfnxpwycd2702 [place] [address]Dr. Farhat Leal PROF 14(COMP METB)on 023 Albumin [Mass/Vol] 2.8 g/dL Critically low 3.4-5.0 Th [facility] Comment on above: Performed By: #### C MP ####[facility] Luhfsnqwak60[address] [place] [address]Dr. Farhat Leal Albumin/Globulin [Mass ratio] 0.8 {ratio} Normal [facility] Comment on above: Performed By: #### C MP ####[facility] Jpkldazcnl3[address] [place] [id number]. Farhat Leal ALP [Catalytic activity/Vol] 68 U/L Normal 46-116 [facility] Comment on above: Performed By: #### C MP ####[facility] Bvwfwqoqoz84[address] [place] [address]Dr. Farhat Leal ALT [Catalytic activity/Vol] 20 U/L Normal 16-63 [facility] Comment on above: Performed By: #### C MP ####[facility] Erbcbtymsb[address] [place], [place] [address]Dr. Farhat Leal Anion gap [Moles/Vol] 11.1 mmol/L Normal Th e [facility] Comment on above: Performed By: #### C MP ####[facility] Ivxknzajkh1984[address] [place], [place] [address]Dr. Farhat Leal AST [Catalytic activity/Vol] 22 U/L Normal 15-37 [facility] Comment on above: Performed By: #### C MP ####[facility] Jzhblxobhg5860[address] [place], [place] [address]Dr. Farhat Leal Bilirubin [Mass/Vol] 0.4 mg/dL Normal 0.2-1.0 [facility] Comment on above: Performed By: #### C MP ####[facility] Lbjbwplglt[address] [place], [place] [address]Dr. Farhat Leal Calcium [Mass/Vol] 8.5 mg/dL Normal 8.5-10.[address] [facility] Comment on above: Performed By: #### C MP ####[facility] Blhhlehlof99[address] [place], [place] [address]Dr. Farhat Leal Chloride [Moles/Vol] 106 mmol/L Normal 98-107 [facility] Comment on above: Performed By: #### C MP ####[facility] Ufbsmswvaq14[address] [place], [place] [address]Dr. Farhat Leal CO2 [Moles/Vol] 29.1 mmol/L Normal 21.0-32.0 [facility] Comment on above: Performed By: #### C MP ####[facility] Bapnnnedft7[address] [place], [place] [address]Dr. Farhat Leal Creatinine [Mass/Vol] 1.70 mg/dL Critically high 0.70-1.30 [facility] Comment on above: Performed By: #### C MP ####[facility] Lgeuajqelm32[address] [place] [address]Dr. Farhat Leal EGFR-AF BRITISH 48 mL/min/1.73m2 Critically low >=60 [facility] Comment on above: Performed By: #### C MP ####[facility] Zlomzuqbmn12[address] [place] [address]Dr. Farhat Elvis EGFR-NON AF BRITISH 39 mL/min/1.73m2 Critically low >=60 [facility] Comment on above: Performed By: #### C MP ####[facility] Ycotxnujjq2366 [place] [address]Dr. Madelynlorri Elvis Globulin (S) [Mass/Vol] 3.6 g/dL Normal [facility] Comment on above: Performed By: #### C MP ####[facility] Usdkmaugic2298[address] [place], [place] [address]Dr. Madelynlorri Leal Glucose [Mass/Vol] 312 mg/dL Critically high 74-106 [facility] Comment on above: Performed By: #### C MP ####[facility] Aajbojwqli[address] [place], [place] [address]Dr. Madelynlorri Elvis Potassium [Moles/Vol] 4.2 mmol/L Normal 3.5-5.1 [facility] Comment on above: Performed By: #### C MP ####[facility] Ckprvvwpho7204 [place] [address]Dr. Farhat Leal Protein [Mass/Vol] 6.4 g/dL Normal 6.4-8.2 [facility] Comment on above: Performed By: #### C MP ####[facility] Iaabsyloyn2676[address] [place], [place] [address]Dr. Farhat Elvis Sodium [Moles/Vol] 142 mmol/L Normal 136-145 [facility] Comment on above: Performed By: #### C MP ####[facility] Egtkbnbyhw9849[address] [place], [place] [address]Dr. Farhat Leal Urea nitrogen [Mass/Vol] 49.0 mg/dL Critically high 7.0-18.0 [facility] Comment on above: Performed By: #### C MP ####[facility] Rcmmwbcbes5384 [place] [address]Dr. Farhat Leal Urea nitrogen/Creatinine [Mass ratio] 28.8 mg/mg Normal [facility] Comment on above: Performed By: #### C MP ####[facility] Ykvzevfosz2616 [place] [address]DrSkylar Leal PROTIMEon 07-03-2022 INR Coag (PPP) [Relative time] 2.23 {INR} Normal [facility] Comment on above: Performed By: #### P T ####[facility] Ftitfcyicb8158[address] [place], [place] [address]DrSkylar Leal INR GUIDELINES SEE BELOW Normal [facility] Comment on above: Result Comment: MALINA RED INR: 2.0 - 3.0 CONDITIONS NOT LISTED BELOW 2.5 - 3.5 FOR PROSTHETIC HEART VALVE REPLACEMENT 2.5 - 3.5 RECURRENT THROMBOSIS Performed By: #### P T ####[facility] Xknfropjoe6212[address] [place], [place] [address]Dr. Farhat Leal PT Coag (PPP) [Time] 22.6 s Critically high 9.0-11.6 [facility] Comment on above: Performed By: #### P T ####[facility] Bwyznvnixj[address] [place], [place] [address]DrSkylar Leal FK506 (TACROLIMUS) WHOLE BLO ODon 06-29-2022 Tacrolimus (FK506), Blood 12.2 ng/mL Normal 2.0-20.0 [facility] Comment on above: Result Comment: Trou gh (immediately following transplant) 15.0 . Trough (steady state, 2 weeks or more after transplant): 3.0 - 8.0 . Performed by LC-MS/MS technology. Performed By: #### F K506T ####[facility] Xggxhempdo6074[address] [place], [place] [address]DrSkylar Leal CBC AUTO DIFFon 06-26-2022 BASO # 0.0 103/ul Normal 0.0-0.1 [facility] Comment on above: Performed By: #### C BC ####[facility] Mqkflmspwk5951 [place] [address]Dr. Farhat Leal Basophils/100 WBC (Bld) 0.5 % Normal 0.2-2.0 [facility] Comment on above: Performed By: #### C BC ####[facility] Laveuogstc0845[address] [place], [place] [address]Dr. Farhat Leal EO # 0.3 103/ul Normal 0.0-0.7 [facility] Comment on above: Performed By: #### C BC ####[facility] Sfyggisjkw4795[address] [place], [place] [address]Dr. Farhat Leal Eosinophils/100 WBC (Bld) 4.3 % Normal 0.9-7.0 [facility] Comment on above: Performed By: #### C BC ####[facility] Mgqowpglrk2036[address] [place], [place] [address]Dr. Farhat Leal Erythrocyte distribution width (RBC) [Ratio] 14.1 % Normal 11.0-15.0 [facility] Comment on above: Performed By: #### C BC ####[facility] Fndwvtsppt01[address] [place], [place] [address]Dr. Farhat Leal Hematocrit (Bld) [Volume fraction] 35.4 % Critically low 42.0-54.0 [facility] Comment on above: Performed By: #### C BC ####[facility] Xoeximqzwn[address] [place], [place] [address]Dr. Farhat Leal Hemoglobin (Bld) [Mass/Vol] 11.8 g/dL Critically low 14.0-18.0 [facility] Comment on above: Performed By: #### C BC ####[facility] Lcglpscuwc4354[address] [place], [place] [address]Dr. Farhat Leal IG # 0.02 10e3/ul Normal 0.00-0.03 [facility] Comment on above: Performed By: #### C BC ####[facility] Zvaurdgdug1146[address] [place], [place] [address]DrSkylar Leal IG % 0.3 % Normal 0.0-0.5 [facility] Comment on above: Performed By: #### C BC ####[facility] Mylkulrrvj2479 [place] [address]DrSkylar Leal LYMPH # 2.4 103/ul Normal 1.2-3.8 [facility] Comment on above: Performed By: #### C BC ####[facility] Yqcwijizcu5511 [place] [address]DrSkylar Leal Lymphocytes/100 WBC (Bld) 40.4 % Normal 20.5-60.0 [facility] Comment on above: Performed By: #### C BC ####[facility] Lghiivhhom[address] [place], [place] [address]DrSkylar Leal MANUAL DIFF REQ NO Normal [facility] Comment on above: Performed By: #### C BC ####[facility] Avpcxubnag18[address] [place], [place] [address]DrSkylar Leal MCH (RBC) [Entitic mass] 31.0 pg Normal 25.9-34.0 [facility] Comment on above: Performed By: #### C BC ####[facility] Wwfyqxpctm4615[address] [place], [place] [address]DrSkylar Leal MCHC (RBC) [Mass/Vol] 33.3 g/dL Normal 29.9-35.2 [facility] Comment on above: Performed By: #### C BC ####[facility] Axgvwwmvkq3497[address] [place], [place] [address]DrSkylar Leal MCV (RBC) [Entitic vol] 92.9 fL Normal 80.0-94.0 [facility] Comment on above: Performed By: #### C BC ####[facility] Zznlmmfblo[address] [place], [place] [address]DrSyklar Leal MONO # 0.7 103/ul Normal 0.3-0.8 [facility] Comment on above: Performed By: #### C BC ####[facility] Kpubmxushy2858[address] [place], [place] [address]DrSkylar Leal Monocytes/100 WBC (Bld) 11.1 % Normal 1.7-12.0 [facility] Comment on above: Performed By: #### C BC ####[facility] Auaogxyzkb9650 [place] [address]Dr. Madelynlorri Leal NEUT # 2.6 103/ul Normal 1.4-6.5 [facility] Comment on above: Performed By: #### C BC ####[facility] Eibfhnrilc5047 [place] [address]DrSkylar Leal Neutrophils/100 WBC (Bld) 43.4 % Normal 43.0-75.0 [facility] Comment on above: Performed By: #### C BC ####[facility] Hxooslqxsm0553 [place] [address]DrSkylar Leal Platelet mean volume (Bld) [Entitic vol] 10.4 fL Normal 9.5-13.5 [facility] Comment on above: Performed By: #### C BC ####[facility] Bjxkwpriql8114 [place] [address]DrSkylar Leal PLT 211 103/ul Normal 150-450 [facility] Comment on above: Performed By: #### C BC ####[facility] Haslfpspbg338[address] [place], [place] [address]DrSkylar Leal RBC 3.81 106/ul Critically low 4.70-6.10 [facility] Comment on above: Performed By: #### C BC ####[facility] Wvtyropddo6057 [place] [id number] Leal WBC 6.0 103/ul Normal 4.0-11.0 [facility] Comment on above: Performed By: #### C BC ####[facility] Qhghiqsdfb0639 [place] [address]DrSkylar Leal PROF 14(COMP METB)on 023 Albumin [Mass/Vol] 2.6 g/dL Critically low 3.4-5.0 [facility] Comment on above: Performed By: #### C MP ####[facility] Fcukpkycxw9694 [place] [address]DrSkylar Leal Albumin/Globulin [Mass ratio] 0.8 {ratio} Normal [facility] Comment on above: Performed By: #### C MP ####[facility] Ouaoddgdpt7442 [place] [address]Dr. Farhat Elvis ALP [Catalytic activity/Vol] 64 U/L Normal 46-116 [facility] Comment on above: Performed By: #### C MP ####[facility] Fcfbzpzmth65[address] [place], [place] [address]Dr. Farhat Elvis ALT [Catalytic activity/Vol] 18 U/L Normal 16-63 [facility] Comment on above: Performed By: #### C MP ####[facility] Xxjceyrati168[address] [place], [place] [address]Dr. Farhat Leal Anion gap [Moles/Vol] 10.2 mmol/L Normal [facility] Comment on above: Performed By: #### C MP ####[facility] Gcfcyorpou9075[address] [place], [place] [address]Dr. Farhat Elvis AST [Catalytic activity/Vol] 16 U/L Normal 15-37 [facility] Comment on above: Performed By: #### C MP ####[facility] Pdahxlsdcm2307[address] [place], [place] [address]Dr. Madelynlorri Elvis Bilirubin [Mass/Vol] 0.6 mg/dL Normal 0.2-1.0 [facility] Comment on above: Performed By: #### C MP ####[facility] Fbcslzvtus6734[address] [place], [place] [address]Dr. Farhat Leal Calcium [Mass/Vol] 8.5 mg/dL Normal 8.5-10.[address] [facility] Comment on above: Performed By: #### C MP ####[facility] Mojclhjupx2618[address] [place], [place] [address]Dr. Farhat Leal Chloride [Moles/Vol] 106 mmol/L Normal 98-107 [facility] Comment on above: Performed By: #### C MP ####[facility] Rlecqijaor4289[address] [place], [place] [address]Dr. Farhat Leal CO2 [Moles/Vol] 29.8 mmol/L Normal 21.0-32.0 [facility] Comment on above: Performed By: #### C MP ####[facility] Oqdnuggpwx2212 [place] [address]Dr. Madelynlorri Elvis Creatinine [Mass/Vol] 1.60 mg/dL Critically high 0.70-1.30 [facility] Comment on above: Performed By: #### C MP ####[facility] Kvbdseqtze2052 [place] [address]Dr. Farhat Leal EGFR-AF BRITISH 51 mL/min/1.73m2 Critically low >=60 [facility] Comment on above: Performed By: #### C MP ####[facility] Jbpnfsjgse6770 [place] [address]Dr. Farhat Leal EGFR-NON AF BRITISH 42 mL/min/1.73m2 Critically low >=60 [facility] Comment on above: Performed By: #### C MP ####[facility] Oosgxqdkvz7313[address] [place], [place] [address]Dr. Farhat Leal Globulin (S) [Mass/Vol] 3.4 g/dL Normal [facility] Comment on above: Performed By: #### C MP ####[facility] Rfuntncvye9[address] [place], [place] [address]Dr. Farhat Leal Glucose [Mass/Vol] 178 mg/dL Critically high 74-106 [facility] Comment on above: Performed By: #### C MP ####[facility] Vfsankvexc1857[address] [place], [place] [address]Dr. Farhat Leal Potassium [Moles/Vol] 4.0 mmol/L Normal 3.5-5.1 [facility] Comment on above: Performed By: #### C MP ####[facility] Mnbdbvalvf804[address] [place], [place] [address]Dr. Farhat Leal Protein [Mass/Vol] 6.0 g/dL Critically low 6.4-8.2 Th e [facility] Comment on above: Performed By: #### C MP ####[facility] Ujnotdzbce805[address] [place], [place] [address]Dr. Farhat Leal Sodium [Moles/Vol] 142 mmol/L Normal 136-145 [facility] Comment on above: Performed By: #### C MP ####[facility] Jvdvoxvdjp3123 [place] [address]Dr. Farhat Leal Urea nitrogen [Mass/Vol] 49.0 mg/dL Critically high 7.0-18.0 [facility] Comment on above: Performed By: #### C MP ####[facility] Orcsiscsst5164 [place] [address]Dr. Farhat Leal Urea nitrogen/Creatinine [Mass ratio] 30.6 mg/mg Normal [facility] Comment on above: Performed By: #### C MP ####[facility] Aehdfzqwxb3605 [place] [address]Dr. Farhat Leal PROTIMEon 06-26-2022 INR Coag (PPP) [Relative time] 1.77 {INR} Normal [facility] Comment on above: Performed By: #### P T ####[facility] Ayepyhqvaj[address] [place], [place] [address]Dr. Farhat Leal INR GUIDELINES SEE BELOW Normal [facility] Comment on above: Result Comment: MALINA RED INR: 2.0 - 3.0 CONDITIONS NOT LISTED BELOW 2.5 - 3.5 FOR PROSTHETIC HEART VALVE REPLACEMENT 2.5 - 3.5 RECURRENT THROMBOSIS Performed By: #### P T ####[facility] Ylsimqkxhh8718[address] [place], [place] [address]Dr. Farhat Leal PT Coag (PPP) [Time] 18.2 s Critically high 9.0-11.6 [facility] Comment on above: Performed By: #### P T ####[facility] Undzylkzya1060[address] [place], [place] [address]Dr. Farhat Leal FK506 (TACROLIMUS) WHOLE BLO ODon 06-22-2022 Tacrolimus (FK506), Blood 24.5 ng/mL Invalid Interpretation Code 2.0-20.0 [facility] Comment on above: Result Comment: Trou gh (immediately following transplant) 15.0 . Trough (steady state, 2 weeks or more after transplant): 3.0 - 8.0 . Performed by LC-MS/MS technology.Patient drug level exceeds published reference range. Evaluateclinically for signs of potential toxicity. Performed By: #### F K506T ####[facility] Uhpotictvd0056 [place] [address]DrSkylar Farhat Elvis CBC AUTO DIFFon 06-19-2022 BASO # 0.1 103/ul Normal 0.0-0.1 [facility] Comment on above: Performed By: #### C BC ####[facility] Herwgvgbvk5528 [place] [address]DrSkylar Leal Basophils/100 WBC (Bld) 0.7 % Normal 0.2-2.0 [facility] Comment on above: Performed By: #### C BC ####[facility] Lylusbdofn3867[address] [place], [place] [address]DrSkylar Leal EO # 0.4 103/ul Normal 0.0-0.7 [facility] Comment on above: Performed By: #### C BC ####[facility] Cggwzwlrya[address] [place], [place] [address]DrSkylar Leal Eosinophils/100 WBC (Bld) 5.7 % Normal 0.9-7.0 [facility] Comment on above: Performed By: #### C BC ####[facility] Rrrfcghifl96[address] [place], [place] [address]Dr. Farhat Leal Erythrocyte distribution width (RBC) [Ratio] 14.5 % Normal 11.0-15.0 [facility] Comment on above: Performed By: #### C BC ####[facility] Dzjyeulltf27[address] [place], [place] [address]Dr. Farhat Leal Hematocrit (Bld) [Volume fraction] 34.1 % Critically low 42.0-54.0 [facility] Comment on above: Performed By: #### C BC ####[facility] Nukzpfkdig[address] [place], [place] [address]DrSkylar Leal Hemoglobin (Bld) [Mass/Vol] 11.3 g/dL Critically low 14.0-18.0 [facility] Comment on above: Performed By: #### C BC ####[facility] W[address]ajejwfym3254[address] [place], [place] [address]Dr. Farhat Leal IG # 0.02 10e3/ul Normal 0.00-0.03 [facility] Comment on above: Performed By: #### C BC ####[facility] Fjmgqrtqno1831 [place] [address]DrSkylar Leal IG % 0.3 % Normal 0.0-0.5 [facility] Comment on above: Performed By: #### C BC ####[facility] Lkdxqqfcub5705 [place] [address]DrSkylar Leal LYMPH # 3.1 103/ul Normal 1.2-3.8 [facility] Comment on above: Performed By: #### C BC ####[facility] Jyyrskdoov7925 [place] [address]DrSkylar Leal Lymphocytes/100 WBC (Bld) 40.6 % Normal 20.5-60.0 [facility] Comment on above: Performed By: #### C BC ####[facility] Gtcwpgagze0133[address] [place], [place] [address]DrSkylar Leal MANUAL DIFF REQ NO Normal [facility] Comment on above: Performed By: #### C BC ####[facility] Zarhhysbbe6386 [place] [address]DrSkylar Leal MCH (RBC) [Entitic mass] 30.6 pg Normal 25.9-34.0 [facility] Comment on above: Performed By: #### C BC ####[facility] Khjejdvlqi8090 [place] [address]DrSkylar Leal MCHC (RBC) [Mass/Vol] 33.1 g/dL Normal 29.9-35.2 [facility] Comment on above: Performed By: #### C BC ####[facility] Entoxmhshc6411 [place] [address]DrSkylar Leal MCV (RBC) [Entitic vol] 92.4 fL Normal 80.0-94.0 [facility] Comment on above: Performed By: #### C BC ####[facility] Btvjculhqi[address] [place], [place] [address]DrSkylar Leal MONO # 0.8 103/ul Normal 0.3-0.8 [facility] Comment on above: Performed By: #### C BC ####[facility] Iomvxcaude6001 [place] [address]Dr. Farhat Leal Monocytes/100 WBC (Bld) 10.6 % Normal 1.7-12.0 [facility] Comment on above: Performed By: #### C BC ####[facility] Jhclrlnhgr9462 [place] [address]Dr. Farhat Leal NEUT # 3.2 103/ul Normal 1.4-6.5 [facility] Comment on above: Performed By: #### C BC ####[facility] Ceocmvhbzr5323 [place] [address]Dr. Farhat Leal Neutrophils/100 WBC (Bld) 42.1 % Critically low 43.0-75.0 [facility] Comment on above: Performed By: #### C BC ####[facility] Wnshmlmmmr46[address] [place], [place] [address]Dr. Farhat Leal Platelet mean volume (Bld) [Entitic vol] 10.6 fL Normal 9.5-13.5 [facility] Comment on above: Performed By: #### C BC ####[facility] Vvrzmbajuv774[address] [place], [place] [address]Dr. Farhat Leal PLT 187 103/ul Normal 150-450 [facility] Comment on above: Performed By: #### C BC ####[facility] Wnliltarkh7[address] [place], [place] [address]Dr. Farhat Leal RBC 3.69 106/ul Critically low 4.70-6.10 [facility] Comment on above: Performed By: #### C BC ####[facility] Enxadfdvir030[address] [place], [place] [address]Dr. Farhat Leal WBC 7.7 103/ul Normal 4.0-11.0 [facility] Comment on above: Performed By: #### C BC ####[facility] Ozttfltfzq8[address] [place], [place] [address]DrSkylar Farhat Elvis PROF 14(COMP METB)on 023 Albumin [Mass/Vol] 2.5 g/dL Critically low 3.4-5.0 [facility] Comment on above: Performed By: #### C MP ####[facility] Xpisevlxln3664 [place] [address]Dr. Farhat Leal Albumin/Globulin [Mass ratio] 0.8 {ratio} Normal [facility] Comment on above: Performed By: #### C MP ####[facility] Beqhyedmnp8152 [place] [address]Dr. Farhat Leal ALP [Catalytic activity/Vol] 60 U/L Normal 46-116 [facility] Comment on above: Performed By: #### C MP ####[facility] Xvvvptteno36[address] [place], [place] [address]Dr. Farhat Leal ALT [Catalytic activity/Vol] 16 U/L Normal 16-63 [facility] Comment on above: Performed By: #### C MP ####[facility] Enduwvgosb8720[address] [place], [place] [address]Dr. Farhat Leal Anion gap [Moles/Vol] 9.1 mmol/L Normal [facility] Comment on above: Performed By: #### C MP ####[facility] Fwkbdrxgmf08[address] [place], [place] [address]Dr. Farhat Leal AST [Catalytic activity/Vol] 31 U/L Normal 15-37 [facility] Comment on above: Performed By: #### C MP ####[facility] Xppqksydks19[address] [place], [place] [address]Dr. Farhat Leal Bilirubin [Mass/Vol] 0.3 mg/dL Normal 0.2-1.0 [facility] Comment on above: Performed By: #### C MP ####[facility] Sdfrtjatix98[address] [place], [place] [address]Dr. Farhat Leal Calcium [Mass/Vol] 8.2 mg/dL Critically low 8.5-10.1 [facility] Comment on above: Performed By: #### C MP ####[facility] Iipznflfhg7126[address] [place], [place] [address]Dr. Farhat Leal Chloride [Moles/Vol] 106 mmol/L Normal 98-107 [facility] Comment on above: Performed By: #### C MP ####[facility] Bmgktxhvkr[address] [place] [address]Dr. Farhat Elvis CO2 [Moles/Vol] 27.0 mmol/L Normal 21.0-32.0 [facility] Comment on above: Performed By: #### C MP ####[facility] Qqrivgcivw4741 [place] [address]Dr. Farhat Leal Creatinine [Mass/Vol] 1.51 mg/dL Critically high 0.70-1.30 [facility] Comment on above: Performed By: #### C MP ####[facility] Fuyechvxvo9526[address] [place], [place] [address]Dr. Farhat Leal EGFR-AF BRITISH 55 mL/min/1.73m2 Critically low >=60 [facility] Comment on above: Performed By: #### C MP ####[facility] Vuzalsotyz0623[address] [place], [place] [address]Dr. Farhat Leal EGFR-NON AF BRITISH 45 mL/min/1.73m2 Critically low >=60 [facility] Comment on above: Performed By: #### C MP ####[facility] Btqlzlikdx188[address] [place], [place] [address]Dr. Farhat Leal Globulin (S) [Mass/Vol] 3.2 g/dL Normal [facility] Comment on above: Performed By: #### C MP ####[facility] Xxlevbkbin6406[address] [place], [place] [address]Dr. Farhat Leal Glucose [Mass/Vol] 165 mg/dL Critically high 74-106 [facility] Comment on above: Performed By: #### C MP ####[facility] Xtembggabd2397[address] [place], [place] [address]Dr. Farhat Leal Potassium [Moles/Vol] 4.1 mmol/L Normal 3.5-5.1 [facility] Comment on above: Performed By: #### C MP ####[facility] Hwtqauktjj8445[address] [place], [place] [address]Dr. Farhat Leal Protein [Mass/Vol] 5.7 g/dL Critically low 6.4-8.2 Th e [facility] Comment on above: Performed By: #### C MP ####[facility] Pwzbypzzti3265 [place] [address]Dr. Farhat Leal Sodium [Moles/Vol] 138 mmol/L Normal 136-[address] [facility] Comment on above: Performed By: #### C MP ####[facility] Gtlqsssvql5496 [place] [address]Dr. Farhat Leal Urea nitrogen [Mass/Vol] 51.0 mg/dL Critically high 7.0-18.0 [facility] Comment on above: Performed By: #### C MP ####[facility] Odtnbahcro3786[address] [place], [place] [address]Dr. Farhat Leal Urea nitrogen/Creatinine [Mass ratio] 33.8 mg/mg Normal [facility] Comment on above: Performed By: #### C MP ####[facility] Ulrlhoqvsy5394[address] [place], [place] [address]Dr. Farhat Leal FK506 (TACROLIMUS) WHOLE BLO ODon 06-15-2022 Tacrolimus (FK506), Blood 16.4 ng/mL Normal 2.0-20.0 [facility] Comment on above: Result Comment: Trou gh (immediately following transplant) 15.0 . Trough (steady state, 2 weeks or more after transplant): 3.0 - 8.0 . Performed by LC-MS/MS technology. Performed By: #### F K506T ####[facility] Mxnmytwkgv4092 [place] [address]Dr. Farhat Leal PROTIMEon 06-15-2022 INR Coag (PPP) [Relative time] 1.64 {INR} Normal [facility] Comment on above: Performed By: #### P T ####[facility] Ypbsezlhgz[address] [place], [place] [address]Dr. Farhat Leal INR GUIDELINES SEE BELOW Normal [facility] Comment on above: Result Comment: MALINA RED INR: 2.0 - 3.0 CONDITIONS NOT LISTED BELOW 2.5 - 3.5 FOR PROSTHETIC HEART VALVE REPLACEMENT 2.5 - 3.5 RECURRENT THROMBOSIS Performed By: #### P T ####[facility] Yvvbhozifk3394 [place] [id number]. Farhat Leal PT Coag (PPP) [Time] 16.9 s Critically high 9.0-11.6 [facility] Comment on above: Performed By: #### P T ####[facility] Ztrvthjiml8498 [place] [address]Dr. Farhat Leal CBC AUTO DIFFon 06-12-2022 BASO # 0.0 103/ul Normal 0.0-0.1 [facility] Comment on above: Performed By: #### C BC ####[facility] Wekggodygu65[address] [place], [place] [address]Dr. Farhat Leal Basophils/100 WBC (Bld) 0.4 % Normal 0.2-2.0 [facility] Comment on above: Performed By: #### C BC ####[facility] Nsbmkhziot6178[address] [place], [place] [address]Dr. Farhat Leal EO # 0.4 103/ul Normal 0.0-0.7 [facility] Comment on above: Performed By: #### C BC ####[facility] Tnqkdhijcp0184[address] [place], [place] [address]Dr. Farhat Leal Eosinophils/100 WBC (Bld) 5.4 % Normal 0.9-7.0 [facility] Comment on above: Performed By: #### C BC ####[facility] Jklfpaphpg299[address] [place], [place] [address]Dr. Farhat Leal Erythrocyte distribution width (RBC) [Ratio] 14.7 % Normal 11.0-15.0 [facility] Comment on above: Performed By: #### C BC ####[facility] Ukseuhmdju3437[address] [place], [place] [address]Dr. Farhat Leal Hematocrit (Bld) [Volume fraction] 34.8 % Critically low 42.0-54.0 [facility] Comment on above: Performed By: #### C BC ####[facility] Yxarcxalhq1032[address] [place], [place] [address]Dr. Farhat Leal Hemoglobin (Bld) [Mass/Vol] 11.7 g/dL Critically low 14.0-18.0 [facility] Comment on above: Performed By: #### C BC ####[facility] Zaojvfqksp2694 [place] [address]Dr. Farhat Leal IG # 0.02 10e3/ul Normal 0.00-0.03 [facility] Comment on above: Performed By: #### C BC ####[facility] Xgkumgrhor3885 [place] [address]Dr. Farhat Leal IG % 0.3 % Normal 0.0-0.5 [facility] Comment on above: Performed By: #### C BC ####[facility] Dzkjmhxjac5232 [place] [address]Dr. Farhat Leal LYMPH # 2.5 103/ul Normal 1.2-3.8 [facility] Comment on above: Performed By: #### C BC ####[facility] Pqerutsoyg8892 [place] [address]Dr. Farhat Leal Lymphocytes/100 WBC (Bld) 36.8 % Normal 20.5-60.0 [facility] Comment on above: Performed By: #### C BC ####[facility] Skbtplyhfb0694 [place] [address]Dr. Farhat Leal MANUAL DIFF REQ NO Normal [facility] Comment on above: Performed By: #### C BC ####[facility] Nttdvjmjrq1168 [place] [address]Dr. Farhat Leal MCH (RBC) [Entitic mass] 30.9 pg Normal 25.9-34.0 [facility] Comment on above: Performed By: #### C BC ####[facility] Qnunuuphyn29[address] [place], [place] [address]Dr. Farhat Leal MCHC (RBC) [Mass/Vol] 33.6 g/dL Normal 29.9-35.2 [facility] Comment on above: Performed By: #### C BC ####[facility] Hwarsfptqh3100 [place] [address]Dr. Farhat Leal MCV (RBC) [Entitic vol] 91.8 fL Normal 80.0-94.0 [facility] Comment on above: Performed By: #### C BC ####[facility] Vkflmbbkja9783 [place] [phone]. Farhat Leal MONO # 0.8 103/ul Normal 0.3-0.8 [facility] Comment on above: Performed By: #### C BC ####[facility] Jefzwaltjo7752 [place] [phone]. Farhat Leal Monocytes/100 WBC (Bld) 11.9 % Normal 1.7-12.0 [facility] Comment on above: Performed By: #### C BC ####[facility] Cycvuovqai4209 [place] [phone]. Farhat Leal NEUT # 3.1 103/ul Normal 1.4-6.5 [facility] Comment on above: Performed By: #### C BC ####[facility] Hcduuutxkp2879 [place] [address]Dr. Farhat Leal Neutrophils/100 WBC (Bld) 45.2 % Normal 43.0-75.0 [facility] Comment on above: Performed By: #### C BC ####[facility] Ktzuqykukb8187 [place] [phone]. Farhat Leal Platelet mean volume (Bld) [Entitic vol] 10.5 fL Normal 9.5-13.5 [facility] Comment on above: Performed By: #### C BC ####[facility] Pylkckkocf3684 [place] [phone]. Farhat Leal PLT 175 103/ul Normal 150-450 [facility] Comment on above: Performed By: #### C BC ####[facility] Sunkziuzma9[address] [place] [phone]. Farhat Leal RBC 3.79 106/ul Critically low 4.70-6.10 [facility] Comment on above: Performed By: #### C BC ####[facility] Dbvphttbox9685 [place] [phone]. Farhat Leal WBC 6.8 103/ul Normal 4.0-11.0 [facility] Comment on above: Performed By: #### C BC ####[facility] Gvjwtaaymm6490 [place] [address]Dr. Farhat Leal MAGNESIUMon 06-12-2022 Magnesium [Mass/Vol] 1.6 mg/dL Critically low 1.8-2.4 [facility] Comment on above: Performed By: #### C MP, MG, PHOS ####[facility] Hpjrifqqxr5556 [place] [address]Dr. Farhat Leal PHOSPHORUSon 06-12-2022 Phosphate [Mass/Vol] 3.8 mg/dL Normal 2.6-4.7 [facility] Comment on above: Performed By: #### C MP, MG, PHOS ####[facility] Ltnvvlegql045[address] [place], [place] [address]Dr. Farhat Leal PROF 14(COMP METB)on 023 Albumin [Mass/Vol] 2.6 g/dL Critically low 3.4-5.0 [facility] Comment on above: Performed By: #### C MP, MG, PHOS ####[facility] Ddvbaxghip5504 [place] [address]Dr. Farhat Leal Albumin/Globulin [Mass ratio] 0.8 {ratio} Normal [facility] Comment on above: Performed By: #### C MP, MG, PHOS ####[facility] Nprrvmncok0451 [place] [address]Dr. Farhat Leal ALP [Catalytic activity/Vol] 64 U/L Normal 46-116 [facility] Comment on above: Performed By: #### C MP, MG, PHOS ####[facility] Yusdiryytm5207 [place] [address]Dr. Farhat Leal ALT [Catalytic activity/Vol] 18 U/L Normal 16-63 [facility] Comment on above: Performed By: #### C MP, MG, PHOS ####[facility] Zdfgcwvqga8671 [place] [address]Dr. Farhat Leal Anion gap [Moles/Vol] 12.9 mmol/L Normal [facility] Comment on above: Performed By: #### C MP, MG, PHOS ####[facility] Jxcsbpfeep9334 [place] [address]Dr. Farhat Leal AST [Catalytic activity/Vol] 18 U/L Normal 15-37 [facility] Comment on above: Performed By: #### C MP, MG, PHOS ####[facility] Gqgdazzhjg9379 [place] [address]Dr. Farhat Leal Bilirubin [Mass/Vol] 0.4 mg/dL Normal 0.2-1.0 [facility] Comment on above: Performed By: #### C MP, MG, PHOS ####[facility] Bichvyzjxq0986[address] [place], [place] [address]Dr. Farhat Leal Calcium [Mass/Vol] 8.7 mg/dL Normal 8.5-10.[address] [facility] Comment on above: Performed By: #### C MP, MG, PHOS ####[facility] Gvgogvawrp7125[address] [place], [place] [address]Dr. Farhat Leal Chloride [Moles/Vol] 105 mmol/L Normal 98-107 [facility] Comment on above: Performed By: #### C MP, MG, PHOS ####[facility] Nfpozpkuyv04[address] [place], [place] [address]Dr. Farhat Leal CO2 [Moles/Vol] 27.9 mmol/L Normal 21.0-32.0 [facility] Comment on above: Performed By: #### C MP, MG, PHOS ####[facility] Ngqogfxmuf106[address] [place], [place] [address]Dr. Farhat Leal Creatinine [Mass/Vol] 1.53 mg/dL Critically high 0.70-1.30 [facility] Comment on above: Performed By: #### C MP, MG, PHOS ####[facility] Zvuftuapnk66[address] [place], [place] [address]Dr. Farhat Leal EGFR-AF BRITISH 54 mL/min/1.73m2 Critically low >=60 [facility] Comment on above: Performed By: #### C MP, MG, PHOS ####[facility] Jjzldixbma9[address] [place], [place] [address]Dr. Farhat Leal EGFR-NON AF BRITISH 44 mL/min/1.73m2 Critically low >=60 [facility] Comment on above: Performed By: #### C MP, MG, PHOS ####[facility] Mmrzayawpv7095 [place] [address]Dr. Farhat Leal Globulin (S) [Mass/Vol] 3.4 g/dL Normal [facility] Comment on above: Performed By: #### C MP, MG, PHOS ####[facility] Narysynmlw7629 [place] [address]Dr. Farhat Leal Glucose [Mass/Vol] 179 mg/dL Critically high 74-106 [facility] Comment on above: Performed By: #### C MP, MG, PHOS ####[facility] Ydnzkjhfxo4787 [place] [address]Dr. Farhat Leal Potassium [Moles/Vol] 3.8 mmol/L Normal 3.5-5.1 [facility] Comment on above: Performed By: #### C MP, MG, PHOS ####[facility] Nekuxytmpm1661 [place] [address]Dr. Farhat Leal Protein [Mass/Vol] 6.0 g/dL Critically low 6.4-8.2 [facility] Comment on above: Performed By: #### C MP, MG, PHOS ####[facility] Tbotzxaysr9290 [place] [address]Dr. Farhat Leal Sodium [Moles/Vol] 142 mmol/L Normal 136-[address] [facility] Comment on above: Performed By: #### C MP, MG, PHOS ####[facility] Xjjhqgtkcf8362 [place] [address]Dr. Farhat Leal Urea nitrogen [Mass/Vol] 56.0 mg/dL Critically high 7.0-18.0 [facility] Comment on above: Performed By: #### C MP, MG, PHOS ####[facility] Gdttcaxcea6029 [place] [address]Dr. Farhat Leal Urea nitrogen/Creatinine [Mass ratio] 36.6 mg/mg Normal [facility] Comment on above: Performed By: #### C MP, MG, PHOS ####[facility] Leqbwgygpz6255 [place] [address]Dr. Farhat Leal FK506 (TACROLIMUS) WHOLE BLO ODon 06-08-2022 Tacrolimus (FK506), Blood 13.2 ng/mL Normal 2.0-20.0 [facility] Comment on above: Result Comment: Trou gh (immediately following transplant) 15.0 . Trough (steady state, 2 weeks or more after transplant): 3.0 - 8.0 . Performed by LC-MS/MS technology. Performed By: #### F K506T ####[facility] Qabirlhdjo7[address] [place], [place] [address]Dr. Farhat Leal CBC AUTO DIFFon 06-05-2022 BASO # 0.1 103/ul Normal 0.0-0.1 [facility] Comment on above: Performed By: #### C BC ####[facility] Cvrnageubs124[address] [place], [place] [address]Dr. Farhat Leal Basophils/100 WBC (Bld) 0.8 % Normal 0.2-2.0 [facility] Comment on above: Performed By: #### C BC ####[facility] Rxncgieuag[address] [place], [place] [address]DrSkylar Leal EO # 0.3 103/ul Normal 0.0-0.7 [facility] Comment on above: Performed By: #### C BC ####[facility] Drakuogkst6823[address] [place], [place] [address]Dr. Farhat Leal Eosinophils/100 WBC (Bld) 4.7 % Normal 0.9-7.0 [facility] Comment on above: Performed By: #### C BC ####[facility] Pumcvzcmky[address] [place], [place] [address]DrSkylar Leal Erythrocyte distribution width (RBC) [Ratio] 15.1 % Critically high 11.0-15.0 [facility] Comment on above: Performed By: #### C BC ####[facility] Yhfsliuggw[address] [place], [place] [address]Dr. Farhat Leal Hematocrit (Bld) [Volume fraction] 35.5 % Critically low 42.0-54.0 [facility] Comment on above: Performed By: #### C BC ####[facility] Epwcusnjev6689 [place] [address]DrSkylar Leal Hemoglobin (Bld) [Mass/Vol] 11.7 g/dL Critically low 14.0-18.0 [facility] Comment on above: Performed By: #### C BC ####[facility] Rtgrdqivwq6923 [place] [address]DrSkylar Leal IG # 0.01 10e3/ul Normal 0.00-0.03 [facility] Comment on above: Performed By: #### C BC ####[facility] Eackoxdouq7660[address] [place], [place] [address]DrSkylar Leal IG % 0.2 % Normal 0.0-0.5 [facility] Comment on above: Performed By: #### C BC ####[facility] Tkwgexqgaq[address] [place], [place] [address]DrSkylar Leal LYMPH # 2.1 103/ul Normal 1.2-3.8 [facility] Comment on above: Performed By: #### C BC ####[facility] Gcnzpzishd[address] [place], [place] [address]DrSkylar Leal Lymphocytes/100 WBC (Bld) 34.5 % Normal 20.5-60.0 [facility] Comment on above: Performed By: #### C BC ####[facility] Jrzrsfzpay4099 [place] [address]DrSkylar Leal MANUAL DIFF REQ NO Normal [facility] Comment on above: Performed By: #### C BC ####[facility] Tngweuxdcb6190 [place] [address]DrSkylar Leal MCH (RBC) [Entitic mass] 30.6 pg Normal 25.9-34.0 [facility] Comment on above: Performed By: #### C BC ####[facility] Wbfaawzexb5803 [place] [phone] Leal MCHC (RBC) [Mass/Vol] 33.0 g/dL Normal 29.9-35.2 [facility] Comment on above: Performed By: #### C BC ####[facility] Depdmchbuc9595 [place] [address]DrSkylar Farhat Elvis MCV (RBC) [Entitic vol] 92.9 fL Normal 80.0-94.0 [facility] Comment on above: Performed By: #### C BC ####[facility] Dotkhiimwo9088 [place] [address]DrSkylar Joshilorri Elvis MONO # 0.7 103/ul Normal 0.3-0.8 [facility] Comment on above: Performed By: #### C BC ####[facility] Pauzeoklwi8187 [place] [address]DrSkylar Leal Monocytes/100 WBC (Bld) 11.4 % Normal 1.7-12.0 [facility] Comment on above: Performed By: #### C BC ####[facility] Attwwymdrt174[address] [place], [place] [address]Dr. Madelynlorri Elvis NEUT # 2.9 103/ul Normal 1.4-6.5 [facility] Comment on above: Performed By: #### C BC ####[facility] Dzxbdifwlb1951 [place] [address]DrSkylar Madelynlorri Leal Neutrophils/100 WBC (Bld) 48.4 % Normal 43.0-75.0 [facility] Comment on above: Performed By: #### C BC ####[facility] Eenfbehdog6729 [place] [address]DrSkylar Leal Platelet mean volume (Bld) [Entitic vol] 10.7 fL Normal 9.5-13.5 [facility] Comment on above: Performed By: #### C BC ####[facility] Jgievxavqp0529 [place] [address]DrSkylar Leal PLT 185 103/ul Normal 150-450 [facility] Comment on above: Performed By: #### C BC ####[facility] Hetfvkoadl2951 [place] [phone] Leal RBC 3.82 106/ul Critically low 4.70-6.10 [facility] Comment on above: Performed By: #### C BC ####[facility] Odowdvxcaa0323 [place] [address]Dr. Madelynlorri Elvis WBC 6.0 103/ul Normal 4.0-11.0 [facility] Comment on above: Performed By: #### C BC ####[facility] Hmohputfas7462 [place] [address]Dr. Farhat Leal MAGNESIUMon 06-05-2022 Magnesium [Mass/Vol] 1.9 mg/dL Normal 1.8-2.4 [facility] Comment on above: Performed By: #### P HOS, MG ####[facility] Wydcmachee4439 [place] [address]Dr. Farhat Leal PHOSPHORUSon 06-05-2022 Phosphate [Mass/Vol] 4.4 mg/dL Normal 2.6-4.7 [facility] Comment on above: Performed By: #### P HOS, MG ####[facility] Kqcnobnqdn4[address] [place], [place] [address]Dr. Farhat Leal PROTIMEon 06-05-2022 INR Coag (PPP) [Relative time] 2.16 {INR} Normal [facility] Comment on above: Performed By: #### P T ####[facility] Ezdnyjnstk0124 [place] [address]Dr. Farhat Leal INR GUIDELINES SEE BELOW Normal [facility] Comment on above: Result Comment: MALINA RED INR: 2.0 - 3.0 CONDITIONS NOT LISTED BELOW 2.5 - 3.5 FOR PROSTHETIC HEART VALVE REPLACEMENT 2.5 - 3.5 RECURRENT THROMBOSIS Performed By: #### P T ####[facility] Ddrlpuwnql0142 [place] [address]Dr. Farhat Leal PT Coag (PPP) [Time] 21.9 s Critically high 9.0-11.6 [facility] Comment on above: Performed By: #### P T ####[facility] Eltmvapgjj899[address] [place], [place] [address]Dr. Farhat Leal FK506 (TACROLIMUS) WHOLE BLO ODon 06-01-2022 Tacrolimus (FK506), Blood 26.4 ng/mL Invalid Interpretation Code 2.0-20.0 [facility] Comment on above: Result Comment: Trou gh (immediately following transplant) 15.0 . Trough (steady state, 2 weeks or more after transplant): 3.0 - 8.0 . Performed by LC-MS/MS technology.Patient drug level exceeds published reference range. Evaluateclinically for signs of potential toxicity. Performed By: #### F K506T ####[facility] Bmubniadce0699[address] [place], [place] [address]Dr. Farhat Leal CBC AUTO DIFFon 05-29-2022 BASO # 0.0 103/ul Normal 0.0-0.1 [facility] Comment on above: Performed By: #### C BC ####[facility] Cbfayxybgu9354[address] [place], [place] [address]Dr. Farhat eLal Basophils/100 WBC (Bld) 0.6 % Normal 0.2-2.0 [facility] Comment on above: Performed By: #### C BC ####[facility] Jedqyrdwfs5[address] [place], [place] [address]Dr. Farhat Leal EO # 0.3 103/ul Normal 0.0-0.7 [facility] Comment on above: Performed By: #### C BC ####[facility] Rljpsnjxnn036[address] [place], [place] [address]Dr. Farhat Leal Eosinophils/100 WBC (Bld) 4.7 % Normal 0.9-7.0 [facility] Comment on above: Performed By: #### C BC ####[facility] Qzkwitgbdw05[address] [place], [place] [address]Dr. Farhat Leal Erythrocyte distribution width (RBC) [Ratio] 15.3 % Critically high 11.0-15.0 [facility] Comment on above: Performed By: #### C BC ####[facility] Rdkqhuwmkc[address] [place], [place] [address]Dr. Farhat Leal Hematocrit (Bld) [Volume fraction] 36.6 % Critically low 42.0-54.0 [facility] Comment on above: Performed By: #### C BC ####[facility] Rlyeothtmz2928 [place] [phone]. Farhat Leal Hemoglobin (Bld) [Mass/Vol] 12.3 g/dL Critically low 14.0-18.0 [facility] Comment on above: Performed By: #### C BC ####[facility] Tmhsuovmdq0593 [place] [phone]. Farhat Leal IG # 0.02 10e3/ul Normal 0.00-0.03 [facility] Comment on above: Performed By: #### C BC ####[facility] Bxqozbhnjy6002 [place] [phone]. Farhat Leal IG % 0.3 % Normal 0.0-0.5 [facility] Comment on above: Performed By: #### C BC ####[facility] Inkioodowo27[address] [place] [address]Dr. Farhat Leal LYMPH # 2.8 103/ul Normal 1.2-3.8 [facility] Comment on above: Performed By: #### C BC ####[facility] Xkxl[address]ctvco[address] [place] [address]Dr. Farhat Leal Lymphocytes/100 WBC (Bld) 44.4 % Normal 20.5-60.0 [facility] Comment on above: Performed By: #### C BC ####[facility] Mpvricevqb075[address] [place] [phone]. Farhat Leal MANUAL DIFF REQ NO Normal [facility] Comment on above: Performed By: #### C BC ####[facility] Uvxtbtvjxa27[address] [place] [phone]. Farhat Leal MCH (RBC) [Entitic mass] 30.4 pg Normal 25.9-34.0 [facility] Comment on above: Performed By: #### C BC ####[facility] Uybivgfdhm55[address] [place] [phone]. Farhat Leal MCHC (RBC) [Mass/Vol] 33.6 g/dL Normal 29.9-35.2 [facility] Comment on above: Performed By: #### C BC ####[facility] Hacaoerzkk[address] [place] [phone]. Farhat Leal MCV (RBC) [Entitic vol] 90.4 fL Normal 80.0-94.0 [facility] Comment on above: Performed By: #### C BC ####[facility] Oafntlnizl[address] [place] [address]Dr. Farhat Leal MONO # 0.7 103/ul Normal 0.3-0.8 [facility] Comment on above: Performed By: #### C BC ####[facility] Nctfindwsd88[address] [place] [address]Dr. Farhat Elvis Monocytes/100 WBC (Bld) 10.7 % Normal 1.7-12.0 [facility] Comment on above: Performed By: #### C BC ####[facility] Qyjgqycccx[address] [place], [place] [address]Dr. Farhat Leal NEUT # 2.5 103/ul Normal 1.4-6.5 [facility] Comment on above: Performed By: #### C BC ####[facility] Vzjxkqimyp[address] [place], [place] [address]Dr. Farhat Elvis Neutrophils/100 WBC (Bld) 39.3 % Critically low 43.0-75.0 [facility] Comment on above: Performed By: #### C BC ####[facility] Cepsqgzkrp1580[address] [place], [place] [address]Dr. Farhat Elvis Platelet mean volume (Bld) [Entitic vol] 10.5 fL Normal 9.5-13.5 [facility] Comment on above: Performed By: #### C BC ####[facility] Caqejalesn3756[address] [place], [place] [address]Dr. Farhat Elvis PLT 190 103/ul Normal 150-450 [facility] Comment on above: Performed By: #### C BC ####[facility] Gjcyoatxuw6789[address] [place], [place] [address]Dr. Farhat Elvis RBC 4.05 106/ul Critically low 4.70-6.10 [facility] Comment on above: Performed By: #### C BC ####[facility] Ldxdbagrpt5589[address] [place], [place] [address]Dr. Farhat Leal WBC 6.4 103/ul Normal 4.0-11.0 [facility] Comment on above: Performed By: #### C BC ####[facility] Voctacqnlm97[address] [place] [address]DrSkylar Leal PROF 14(COMP METB)on 023 Albumin [Mass/Vol] 2.5 g/dL Critically low 3.4-5.0 [facility] Comment on above: Performed By: #### C MP ####[facility] Dkizshhzcq4[address] [place] [address]Dr. Farhat Leal Albumin/Globulin [Mass ratio] 0.8 {ratio} Normal [facility] Comment on above: Performed By: #### C MP ####[facility] Ciitymyspo0587[address] [place], [place] [address]Dr. Farhat Leal ALP [Catalytic activity/Vol] 61 U/L Normal 46-116 [facility] Comment on above: Performed By: #### C MP ####[facility] Batgakoxmc0415[address] [place], [place] [address]Dr. Farhat Leal ALT [Catalytic activity/Vol] 16 U/L Normal 16-63 [facility] Comment on above: Performed By: #### C MP ####[facility] Phahvxvsxn3439[address] [place], [place] [address]Dr. Farhat Leal Anion gap [Moles/Vol] 12.3 mmol/L Normal [facility] Comment on above: Performed By: #### C MP ####[facility] Qkzlkibzfr6014[address] [place], [place] [address]Dr. Farhat Leal AST [Catalytic activity/Vol] 18 U/L Normal 15-37 [facility] Comment on above: Performed By: #### C MP ####[facility] Ynkrpcrqlw4454[address] [place], [place] [address]Dr. Farhat Leal Bilirubin [Mass/Vol] 0.5 mg/dL Normal 0.2-1.0 [facility] Comment on above: Performed By: #### C MP ####[facility] Wdnysvpphw4728[address] [place], [place] [address]Dr. Farhat Leal Calcium [Mass/Vol] 8.6 mg/dL Normal 8.5-10.[address] [facility] Comment on above: Performed By: #### C MP ####[facility] Pdcvkbjltz12[address] [place] [address]Dr. Farhat Leal Chloride [Moles/Vol] 105 mmol/L Normal 98-107 [facility] Comment on above: Performed By: #### C MP ####[facility] Ostcniecmm1225[address] [place], [place] [address]Dr. Farhat Leal CO2 [Moles/Vol] 28.6 mmol/L Normal 21.0-32.0 [facility] Comment on above: Performed By: #### C MP ####[facility] Opvqxfxhwp3033[address] [place], [place] [address]Dr. Farhat Leal Creatinine [Mass/Vol] 1.47 mg/dL Critically high 0.70-1.30 [facility] Comment on above: Performed By: #### C MP ####[facility] Rrdvakgdbi804[address] [place], [place] [address]Dr. Farhat Leal EGFR-AF BRITISH 56 mL/min/1.73m2 Critically low >=60 [facility] Comment on above: Performed By: #### C MP ####[facility] Xelxxckafe400[address] [place], [place] [address]Dr. Farhat Leal EGFR-NON AF BRITISH 46 mL/min/1.73m2 Critically low >=60 [facility] Comment on above: Performed By: #### C MP ####[facility] Cpwohvjbqp774[address] [place], [place] [address]Dr. Farhat Leal Globulin (S) [Mass/Vol] 3.3 g/dL Normal [facility] Comment on above: Performed By: #### C MP ####[facility] Rorstirwhi815[address] [place], [place] [address]Dr. Farhat Leal Glucose [Mass/Vol] 164 mg/dL Critically high 74-106 [facility] Comment on above: Performed By: #### C MP ####[facility] Xhfonisqty6106[address] [place], [place] [address]Dr. Farhat Leal Potassium [Moles/Vol] 3.9 mmol/L Normal 3.5-5.1 [facility] Comment on above: Performed By: #### C MP ####[facility] Qbtgfxcxmm0108[address] [place], [place] [address]Dr. Farhat Leal Protein [Mass/Vol] 5.8 g/dL Critically low 6.4-8.2 Th e [facility] Comment on above: Performed By: #### C MP ####[facility] Kjohacxmiq7795[address] [place], [place] [address]Dr. Farhat Leal Sodium [Moles/Vol] 142 mmol/L Normal 136-[address] [facility] Comment on above: Performed By: #### C MP ####[facility] Drislxjicx119[address] [place], [place] [address]Dr. Farhat Leal Urea nitrogen [Mass/Vol] 53.0 mg/dL Critically high 7.0-18.0 [facility] Comment on above: Performed By: #### C MP ####[facility] Efudtnvlac5225[address] [place], [place] [address]Dr. Farhat Leal Urea nitrogen/Creatinine [Mass ratio] 36.1 mg/mg Normal [facility] Comment on above: Performed By: #### C MP ####[facility] Lvjvlnhwjp500[address] [place], [place] [address]Dr. Farhat Leal PROTIMEon 05-29-2022 INR Coag (PPP) [Relative time] 2.41 {INR} Normal [facility] Comment on above: Performed By: #### P T ####[facility] Dipvnxmozb438138 [address] [place], [place] [address]Dr. Farhat Leal INR GUIDELINES SEE BELOW Normal [facility] Comment on above: Result Comment: MALINA RED INR: 2.0 - 3.0 CONDITIONS NOT LISTED BELOW 2.5 - 3.5 FOR PROSTHETIC HEART VALVE REPLACEMENT 2.5 - 3.5 RECURRENT THROMBOSIS Performed By: #### P T ####[facility] Slniclbaix2864[address] [place], [place] [address]Dr. Farhat Leal PT Coag (PPP) [Time] 24.3 s Critically high 9.0-11.6 [facility] Comment on above: Performed By: #### P T ####[facility] Biladlorqj0545[address] [place], [place] [address]DrSkylar Leal FK506 (TACROLIMUS) WHOLE BLO ODon 05-25-2022 Tacrolimus (FK506), Blood 5.1 ng/mL Normal 2.0-20.0 [facility] Comment on above: Result Comment: Trou gh (immediately following transplant) 15.0 . Trough (steady state, 2 weeks or more after transplant): 3.0 - 8.0 . Performed by LC-MS/MS technology. Performed By: #### F K506T ####[facility] Hrlofnfmmn5659[address] [place], [place] [address]DrSkylar Leal CBC AUTO DIFFon 05-22-2022 BASO # 0.0 103/ul Normal 0.0-0.1 [facility] Comment on above: Performed By: #### C BC ####[facility] Yjuhohutfc5989[address] [place], [place] [address]DrSkylar Leal Basophils/100 WBC (Bld) 0.5 % Normal 0.2-2.0 [facility] Comment on above: Performed By: #### C BC ####[facility] Qzqyhqyqng[address] [place], [place] [address]DrSkylar Leal EO # 0.2 103/ul Normal 0.0-0.7 [facility] Comment on above: Performed By: #### C BC ####[facility] Bazgseciqq439[address] [place], [place] [address]DrSkylar Leal Eosinophils/100 WBC (Bld) 4.0 % Normal 0.9-7.0 [facility] Comment on above: Performed By: #### C BC ####[facility] Bcdmdbvcjl8984[address] [place], [place] [address]DrSkylar Leal Erythrocyte distribution width (RBC) [Ratio] 15.5 % Critically high 11.0-15.0 [facility] Comment on above: Performed By: #### C BC ####[facility] Ebfrugxurp1024[address] [place], [place] [address]DrSkylar Leal Hematocrit (Bld) [Volume fraction] 34.1 % Critically low 42.0-54.0 [facility] Comment on above: Performed By: #### C BC ####[facility] Yczbppkcxh2268 [place] [address]DrSkylar Farhat Leal Hemoglobin (Bld) [Mass/Vol] 11.3 g/dL Critically low 14.0-18.0 [facility] Comment on above: Performed By: #### C BC ####[facility] Yfrfdbeayr2317[address] [place], [place] [address]DrSkylar Joshilorri Leal IG # 0.03 10e3/ul Normal 0.00-0.03 [facility] Comment on above: Performed By: #### C BC ####[facility] Xzyyyzegxm6688[address] [place], [place] [address]DrSkylar Leal IG % 0.5 % Normal 0.0-0.5 [facility] Comment on above: Performed By: #### C BC ####[facility] Lhpdmoinfe6076[address] [place], [place] [address]DrSkylar Leal LYMPH # 2.1 103/ul Normal 1.2-3.8 [facility] Comment on above: Performed By: #### C BC ####[facility] Narpfkhcss4917[address] [place], [place] [address]DrSkylar Madelynlorri Leal Lymphocytes/100 WBC (Bld) 34.6 % Normal 20.5-60.0 [facility] Comment on above: Performed By: #### C BC ####[facility] Sgsmnhrsan0479[address] [place], [place] [address]DrSkylar Madelynlorri Leal MANUAL DIFF REQ NO Normal [facility] Comment on above: Performed By: #### C BC ####[facility] Aicqsuixvo6577[address] [place], [place] [address]DrSkylar Leal MCH (RBC) [Entitic mass] 30.3 pg Normal 25.9-34.0 [facility] Comment on above: Performed By: #### C BC ####[facility] Njvysgaoqb5946[address] [place], [place] [address]DrSkylar Leal MCHC (RBC) [Mass/Vol] 33.1 g/dL Normal 29.9-35.2 [facility] Comment on above: Performed By: #### C BC ####[facility] Iylxoproej4353 [place] [address]DrSkylar Leal MCV (RBC) [Entitic vol] 91.4 fL Normal 80.0-94.0 [facility] Comment on above: Performed By: #### C BC ####[facility] Mihzunmvfx2590[address] [place], [place] [address]DrSkylar Leal MONO # 0.7 103/ul Normal 0.3-0.8 [facility] Comment on above: Performed By: #### C BC ####[facility] Vejpifwtwq5277[address] [place], [place] [address]DrSkylar Leal Monocytes/100 WBC (Bld) 11.6 % Normal 1.7-12.0 [facility] Comment on above: Performed By: #### C BC ####[facility] Ydalwvjbsp6075[address] [place], [place] [address]DrSkylar Leal NEUT # 2.9 103/ul Normal 1.4-6.5 [facility] Comment on above: Performed By: #### C BC ####[facility] Awcwqszxrh7638[address] [place], [place] [address]DrSkylar Leal Neutrophils/100 WBC (Bld) 48.8 % Normal 43.0-75.0 [facility] Comment on above: Performed By: #### C BC ####[facility] Khxidakaeq9289[address] [place], [place] [address]DrSkylar Leal Platelet mean volume (Bld) [Entitic vol] 10.9 fL Normal 9.5-13.5 [facility] Comment on above: Performed By: #### C BC ####[facility] Zaofnjkqkz9729[address] [place], [place] [address]DrSkylar Leal PLT 186 103/ul Normal 150-450 [facility] Comment on above: Performed By: #### C BC ####[facility] Kwmckwxasr3156[address] [place], [place] [address]DrSkylar Leal RBC 3.73 106/ul Critically low 4.70-6.10 [facility] Comment on above: Performed By: #### C BC ####[facility] Acbpryudnd3[address] [place] [address]Dr. Farhat Leal WBC 6.0 103/ul Normal 4.0-11.0 [facility] Comment on above: Performed By: #### C BC ####[facility] Copicwpncg5298 [place] [address]DrSkylar Leal PROF 14(COMP METB)on 023 Albumin [Mass/Vol] 2.7 g/dL Critically low 3.4-5.0 [facility] Comment on above: Performed By: #### C MP ####[facility] Nuhyabcqut0980[address] [place], [place] [address]Dr. Farhat Leal Albumin/Globulin [Mass ratio] 0.8 {ratio} Normal [facility] Comment on above: Performed By: #### C MP ####[facility] Xkvrifsyam3235[address] [place], [place] [address]Dr. Farhat Leal ALP [Catalytic activity/Vol] 60 U/L Normal 46-116 [facility] Comment on above: Performed By: #### C MP ####[facility] Ilzlzapens6448[address] [place], [place] [address]Dr. Farhat Leal ALT [Catalytic activity/Vol] 17 U/L Normal 16-63 [facility] Comment on above: Performed By: #### C MP ####[facility] Vbgxwuigsy1528[address] [place], [place] [address]Dr. Farhat Leal Anion gap [Moles/Vol] 9.6 mmol/L Normal [facility] Comment on above: Performed By: #### C MP ####[facility] Mudsixxsum175[address] [place], [place] [address]Dr. Farhat Leal AST [Catalytic activity/Vol] 14 U/L Critically low 15-37 [facility] Comment on above: Performed By: #### C MP ####[facility] Cczoscanlr429[address] [place], [place] [address]Dr. Farhat Leal Bilirubin [Mass/Vol] 0.5 mg/dL Normal 0.2-1.0 [facility] Comment on above: Performed By: #### C MP ####[facility] Hvwjqxouff4[address] [place] [address]Dr. Farhat Leal Calcium [Mass/Vol] 8.4 mg/dL Critically low 8.5-10.1 [facility] Comment on above: Performed By: #### C MP ####[facility] Wedvklkulo2739 [place] [address]Dr. Madelynlorri Elvis Chloride [Moles/Vol] 104 mmol/L Normal 98-107 [facility] Comment on above: Performed By: #### C MP ####[facility] Tgwiyubfsb8108 [place] [address]Dr. Farhat Elvis CO2 [Moles/Vol] 27.2 mmol/L Normal 21.0-32.0 [facility] Comment on above: Performed By: #### C MP ####[facility] Eihcpnkdby2704[address] [place], [place] [address]Dr. Farhat Elvis Creatinine [Mass/Vol] 1.24 mg/dL Normal 0.70-1.30 [facility] Comment on above: Performed By: #### C MP ####[facility] Jyrxhfihmu626[address] [place], [place] [address]Dr. Madelynlorri Elvis EGFR-AF BRITISH >60 Normal >=60 [facility] Comment on above: Performed By: #### C MP ####[facility] Volxwumefm036[address] [place], [place] [address]Dr. Farhat Leal EGFR-NON AF BRITISH 57 mL/min/1.73m2 Critically low >=60 [facility] Comment on above: Performed By: #### C MP ####[facility] Mctekshxgn19[address] [place], [place] [address]Dr. Farhat Leal Globulin (S) [Mass/Vol] 3.3 g/dL Normal [facility] Comment on above: Performed By: #### C MP ####[facility] Druogdyfqh84[address] [place] [address]Dr. Farhat Leal Glucose [Mass/Vol] 275 mg/dL Critically high 74-106 [facility] Comment on above: Performed By: #### C MP ####[facility] Yniwuosqfq0376 [place] [address]Dr. Farhat Leal Potassium [Moles/Vol] 3.8 mmol/L Normal 3.5-5.1 [facility] Comment on above: Performed By: #### C MP ####[facility] Hljolbgrku1691 [place] [address]Dr. Madelynlorri Elvis Protein [Mass/Vol] 6.0 g/dL Critically low 6.4-8.2 [facility] Comment on above: Performed By: #### C MP ####[facility] Llsjydqzrs8425[address] [place], [place] [address]Dr. Farhat Leal Sodium [Moles/Vol] 137 mmol/L Normal 136-[address] [facility] Comment on above: Performed By: #### C MP ####[facility] Jqjubvolvw9886[address] [place], [place] [address]Dr. Farhat Leal Urea nitrogen [Mass/Vol] 54.0 mg/dL Critically high 7.0-18.0 [facility] Comment on above: Performed By: #### C MP ####[facility] Qoiiaoyzyk2845[address] [place], [place] [address]Dr. Farhat Elvis Urea nitrogen/Creatinine [Mass ratio] 43.5 mg/mg Normal [facility] Comment on above: Performed By: #### C MP ####[facility] Hzczgjmjhi05[address] [place], [place] [address]Dr. Farhat Leal PROTIMEon 05-22-2022 INR Coag (PPP) [Relative time] 2.27 {INR} Normal [facility] Comment on above: Performed By: #### P T ####[facility] Xmmnipcgrm7996[address] [place], [place] [address]Dr. Farhat Leal INR GUIDELINES SEE BELOW Normal [facility] Comment on above: Result Comment: MALINA RED INR: 2.0 - 3.0 CONDITIONS NOT LISTED BELOW 2.5 - 3.5 FOR PROSTHETIC HEART VALVE REPLACEMENT 2.5 - 3.5 RECURRENT THROMBOSIS Performed By: #### P T ####[facility] Khjjzpgnqg11[address] [place] [address]Dr. Farhat Leal PT Coag (PPP) [Time] 23.0 s Critically high 9.0-11.6 [facility] Comment on above: Performed By: #### P T ####[facility] U[address]bpufzfnn6456[address] [place], [place] [address]Dr. Farhat Elvis FK506 (TACROLIMUS) WHOLE BLO ODon 05-19-2022 Tacrolimus (FK506), Blood 7.8 ng/mL Normal 2.0-20.0 [facility] Comment on above: Result Comment: Trou gh (immediately following transplant) 15.0 . Trough (steady state, 2 weeks or more after transplant): 3.0 - 8.0 . Performed by LC-MS/MS technology. Performed By: #### F K506T ####[facility] Zkaazkgskc467[address] [place], [place] [address]Dr. Farhat Leal CBC AUTO DIFFon 05-15-2022 BASO # 0.0 103/ul Normal 0.0-0.1 [facility] Comment on above: Performed By: #### C BC ####[facility] Dctkljxuig196[address] [place], [place] [address]Dr. Farhat Leal Basophils/100 WBC (Bld) 0.4 % Normal 0.2-2.0 [facility] Comment on above: Performed By: #### C BC ####[facility] Ooeabwbovq4870[address] [place], [place] [address]Dr. Farhat Leal EO # 0.2 103/ul Normal 0.0-0.7 [facility] Comment on above: Performed By: #### C BC ####[facility] Mxlbmgnpbo110[address] [place], [place] [address]Dr. Farhat Leal Eosinophils/100 WBC (Bld) 3.0 % Normal 0.9-7.0 [facility] Comment on above: Performed By: #### C BC ####[facility] Zmslxeaaur7023[address] [place], [place] [address]Dr. Farhat Leal Erythrocyte distribution width (RBC) [Ratio] 15.7 % Critically high 11.0-15.0 [facility] Comment on above: Performed By: #### C BC ####[facility] Txvwcnkswu[address] [place] [address]Dr. Farhat Leal Hematocrit (Bld) [Volume fraction] 36.8 % Critically low 42.0-54.0 [facility] Comment on above: Performed By: #### C BC ####[facility] Somhrdmjxd380[address] [place] [address]Dr. Madelynlorri Leal Hemoglobin (Bld) [Mass/Vol] 12.4 g/dL Critically low 14.0-18.0 [facility] Comment on above: Performed By: #### C BC ####[facility] Mkvhijrqjg4933[address] [place], [place] [address]Dr. Farhat Leal IG # 0.01 10e3/ul Normal 0.00-0.03 [facility] Comment on above: Performed By: #### C BC ####[facility] Hcxgdmlgeq1326[address] [place], [place] [address]Dr. Farhat Leal IG % 0.1 % Normal 0.0-0.5 [facility] Comment on above: Performed By: #### C BC ####[facility] Owtwbzrnsp2226[address] [place], [place] [address]Dr. Madelynlorri Leal LYMPH # 2.4 103/ul Normal 1.2-3.8 [facility] Comment on above: Performed By: #### C BC ####[facility] Yqqavkgubz1989[address] [place], [place] [address]Dr. Faraht Leal Lymphocytes/100 WBC (Bld) 35.6 % Normal 20.5-60.0 [facility] Comment on above: Performed By: #### C BC ####[facility] Sjypmpenkt6530[address] [place], [place] [address]Dr. Farhat Leal MANUAL DIFF REQ NO Normal [facility] Comment on above: Performed By: #### C BC ####[facility] Npuuwmstcc954[address] [place], [place] [address]Dr. Farhat Leal MCH (RBC) [Entitic mass] 30.1 pg Normal 25.9-34.0 [facility] Comment on above: Performed By: #### C BC ####[facility] Hcuplzeapn[address] [place] [id number]. Farhat Elvis MCHC (RBC) [Mass/Vol] 33.7 g/dL Normal 29.9-35.2 [facility] Comment on above: Performed By: #### C BC ####[facility] Zjpzafzzhx[address] [place] [address]Dr. Farhat Leal MCV (RBC) [Entitic vol] 89.3 fL Normal 80.0-94.0 [facility] Comment on above: Performed By: #### C BC ####[facility] Mlkyhuylwn[address] [place], [place] [address]Dr. Farhat Leal MONO # 0.7 103/ul Normal 0.3-0.8 [facility] Comment on above: Performed By: #### C BC ####[facility] W[address]qzdhnkho9[address] [place], [place] [address]Dr. Faraht Leal Monocytes/100 WBC (Bld) 10.8 % Normal 1.7-12.0 [facility] Comment on above: Performed By: #### C BC ####[facility] Fefitzbqok27[address] [place], [place] [address]Dr. Farhat Leal NEUT # 3.4 103/ul Normal 1.4-6.5 [facility] Comment on above: Performed By: #### C BC ####[facility] Wxctitiosw[address] [place], [place] [address]Dr. Farhat Leal Neutrophils/100 WBC (Bld) 50.1 % Normal 43.0-75.0 [facility] Comment on above: Performed By: #### C BC ####[facility] Ugukwrdmgo[address] [place], [place] [address]Dr. Farhat Leal Platelet mean volume (Bld) [Entitic vol] 10.2 fL Normal 9.5-13.5 [facility] Comment on above: Performed By: #### C BC ####[facility] Owduhsoyyb[address] [place], [place] [address]Dr. Farhat Leal PLT 190 103/ul Normal 150-450 [facility] Comment on above: Performed By: #### C BC ####[facility] Hgqsgcozso9923 [place] [id number]. Farhat Leal RBC 4.12 106/ul Critically low 4.70-6.10 [facility] Comment on above: Performed By: #### C BC ####[facility] Gicifvohtc3619 [place] [phone]. Farhat Leal WBC 6.8 103/ul Normal 4.0-11.0 [facility] Comment on above: Performed By: #### C BC ####[facility] Cwwqprrkto5382 [place] [address]Dr. Farhat Leal PROF 14(COMP METB)on 023 Albumin [Mass/Vol] 2.8 g/dL Critically low 3.4-5.0 [facility] Comment on above: Performed By: #### C MP ####[facility] Ghdqxvlzrz[address] [place], [place] [address]Dr. Farhat Leal Albumin/Globulin [Mass ratio] 0.9 {ratio} Normal [facility] Comment on above: Performed By: #### C MP ####[facility] Bssfjgzyuu7[address] [place] [address]Dr. Farhat Leal ALP [Catalytic activity/Vol] 66 U/L Normal 46-116 [facility] Comment on above: Performed By: #### C MP ####[facility] Qpofvnuajx2723 [place] [address]Dr. Farhat Leal ALT [Catalytic activity/Vol] 15 U/L Critically low 16-63 [facility] Comment on above: Performed By: #### C MP ####[facility] Atesfzrddc2643 [place] [address]Dr. Farhat Leal Anion gap [Moles/Vol] 11.1 mmol/L Normal [facility] Comment on above: Performed By: #### C MP ####[facility] Onlhjkodrs6485 [place] [address]Dr. Farhat Leal AST [Catalytic activity/Vol] 14 U/L Critically low 15-37 [facility] Comment on above: Performed By: #### C MP ####[facility] Wxviyjwwri9672 [place] [phone]. Farhat Leal Bilirubin [Mass/Vol] 0.8 mg/dL Normal 0.2-1.0 [facility] Comment on above: Performed By: #### C MP ####[facility] Vzptfkzlaa0408 [place] [phone]. Farhat Leal Calcium [Mass/Vol] 8.9 mg/dL Normal 8.5-10.[address] [facility] Comment on above: Performed By: #### C MP ####[facility] Gzvqhnwivg5282 [place] [phone]. Farhat Leal Chloride [Moles/Vol] 101 mmol/L Normal 98-107 [facility] Comment on above: Performed By: #### C MP ####[facility] Qkonsxruam0142 [place] [phone]. Farhat Leal CO2 [Moles/Vol] 28.2 mmol/L Normal 21.0-32.0 [facility] Comment on above: Performed By: #### C MP ####[facility] Ryhvervqrz1987 [place] [phone]. Farhat Leal Creatinine [Mass/Vol] 1.23 mg/dL Normal 0.70-1.30 [facility] Comment on above: Performed By: #### C MP ####[facility] Vmrtfnwgvs1163 [place] [phone]. Farhat Leal EGFR-AF BRITISH >60 Normal >=60 [facility] Comment on above: Performed By: #### C MP ####[facility] Ksvjsjpgca5732 [place] [phone]. Farhat Leal EGFR-NON AF BRITISH 57 mL/min/1.73m2 Critically low >=60 [facility] Comment on above: Performed By: #### C MP ####[facility] Dlfsdooiqb5253 [place] [phone]. Farhat Leal Globulin (S) [Mass/Vol] 3.2 g/dL Normal [facility] Comment on above: Performed By: #### C MP ####[facility] Inrbyuwldq1406 [place] [phone]. Farhat Leal Glucose [Mass/Vol] 333 mg/dL Critically high 74-106 [facility] Comment on above: Performed By: #### C MP ####[facility] Dfptdvboei4064 [place] [phone]. Farhat Leal Potassium [Moles/Vol] 4.3 mmol/L Normal 3.5-5.1 [facility] Comment on above: Performed By: #### C MP ####[facility] Yqvkgymiue1009 [place] [phone]. Farhat Leal Protein [Mass/Vol] 6.0 g/dL Critically low 6.4-8.2 [facility] Comment on above: Performed By: #### C MP ####[facility] Hxmpvglqkc2178 [place] [address]Dr. Farhat Leal Sodium [Moles/Vol] 136 mmol/L Normal 136-[address] [facility] Comment on above: Performed By: #### C MP ####[facility] Bgihugodmk8892 [place] [phone]. Farhat Leal Urea nitrogen [Mass/Vol] 58.0 mg/dL Critically high 7.0-18.0 [facility] Comment on above: Performed By: #### C MP ####[facility] Emcrunhxbx7268 [place] [phone]. Farhat Leal Urea nitrogen/Creatinine [Mass ratio] 47.2 mg/mg Normal [facility] Comment on above: Performed By: #### C MP ####[facility] Czrvghsqsd5794 [place] [phone]. Farhat Leal PROTIMEon 05-13-2022 INR Coag (PPP) [Relative time] 3.51 {INR} Normal [facility] Comment on above: Performed By: #### P T ####[facility] Igunnxkoeh2744 [place] [phone]. Farhat Leal INR GUIDELINES SEE BELOW Normal [facility] Comment on above: Result Comment: MALINA RED INR: 2.0 - 3.0 CONDITIONS NOT LISTED BELOW 2.5 - 3.5 FOR PROSTHETIC HEART VALVE REPLACEMENT 2.5 - 3.5 RECURRENT THROMBOSIS Performed By: #### P T ####[facility] F[address]ys[address]fp[address] [place], [place] [address]Dr. Farhat Leal PT Coag (PPP) [Time] 34.7 s Critically high 9.0-11.6 [facility] Comment on above: Performed By: #### P T ####[facility] Ceeygvehsu7439[address] [place], [place] [address]DrSkylar Leal FK506 (TACROLIMUS) WHOLE BLO ODon 05-11-2022 Tacrolimus (FK506), Blood 14.4 ng/mL Normal 2.0-20.0 [facility] Comment on above: Result Comment: Trou gh (immediately following transplant) 15.0 . Trough (steady state, 2 weeks or more after transplant): 3.0 - 8.0 . Performed by LC-MS/MS technology. Performed By: #### F K506T ####[facility] Ehsdpnpvuq124[address] [place], [place] [address]DrSkylar Leal CBC AUTO DIFFon 05-08-2022 BASO # 0.0 103/ul Normal 0.0-0.1 [facility] Comment on above: Performed By: #### C BC ####[facility] Hlmamgclrt8[address] [place], [place] [address]DrSkylar Leal Basophils/100 WBC (Bld) 0.5 % Normal 0.2-2.0 [facility] Comment on above: Performed By: #### C BC ####[facility] Xpwamzwdck[address] [place], [place] [address]DrSkylar Leal EO # 0.2 103/ul Normal 0.0-0.7 [facility] Comment on above: Performed By: #### C BC ####[facility] Odqjmrrvan244[address] [place], [place] [address]DrSkylar Leal Eosinophils/100 WBC (Bld) 2.9 % Normal 0.9-7.0 [facility] Comment on above: Performed By: #### C BC ####[facility] Dpbxrwyyrm6546[address] [place], [place] [address]DrSkylar Leal Erythrocyte distribution width (RBC) [Ratio] 16.0 % Critically high 11.0-15.0 [facility] Comment on above: Performed By: #### C BC ####[facility] Obiohomtzd4315 [place] [address]Dr. Farhat Leal Hematocrit (Bld) [Volume fraction] 35.7 % Critically low 42.0-54.0 [facility] Comment on above: Performed By: #### C BC ####[facility] Ndonjzkoso2164 [place] [address]Dr. Farhat Leal Hemoglobin (Bld) [Mass/Vol] 11.9 g/dL Critically low 14.0-18.0 [facility] Comment on above: Performed By: #### C BC ####[facility] Uilfvmtkpr37[address] [place], [place] [address]Dr. Farhat Leal IG # 0.03 10e3/ul Normal 0.00-0.03 [facility] Comment on above: Performed By: #### C BC ####[facility] Oturbdftzt97[address] [place], [place] [address]Dr. Madelynlorri Leal IG % 0.5 % Normal 0.0-0.5 [facility] Comment on above: Performed By: #### C BC ####[facility] Tpfuavzutm[address] [place], [place] [address]Dr. Farhat Elvis LYMPH # 2.4 103/ul Normal 1.2-3.8 [facility] Comment on above: Performed By: #### C BC ####[facility] Zdwirnzlab[address] [place], [place] [address]Dr. Madelynlorri Leal Lymphocytes/100 WBC (Bld) 37.8 % Normal 20.5-60.0 [facility] Comment on above: Performed By: #### C BC ####[facility] Cfbfcxgpue42[address] [place], [place] [address]Dr. Madelynlorri Leal MANUAL DIFF REQ NO Normal [facility] Comment on above: Performed By: #### C BC ####[facility] Fmpjhubjbz674[address] [place], [place] [address]Dr. Farhat Leal MCH (RBC) [Entitic mass] 30.4 pg Normal 25.9-34.0 [facility] Comment on above: Performed By: #### C BC ####[facility] Mamklufplm7672 [place] [address]Dr. Farhat Leal MCHC (RBC) [Mass/Vol] 33.3 g/dL Normal 29.9-35.2 [facility] Comment on above: Performed By: #### C BC ####[facility] Mttxcwxsbk5393 [place] [address]Dr. Farhat Elvis MCV (RBC) [Entitic vol] 91.1 fL Normal 80.0-94.0 [facility] Comment on above: Performed By: #### C BC ####[facility] T[address]xvjrp[address] [place], [place] [address]Dr. Farhat Leal MONO # 0.7 103/ul Normal 0.3-0.8 [facility] Comment on above: Performed By: #### C BC ####[facility] Esrmxdylxh1966[address] [place], [place] [address]Dr. Madelynlorri Leal Monocytes/100 WBC (Bld) 11.1 % Normal 1.7-12.0 [facility] Comment on above: Performed By: #### C BC ####[facility] Plzugbhwct[address] [place], [place] [address]Dr. Farhat Leal NEUT # 2.9 103/ul Normal 1.4-6.5 [facility] Comment on above: Performed By: #### C BC ####[facility] Gryjfdptwd19[address] [place], [place] [address]Dr. Madelynlorri Leal Neutrophils/100 WBC (Bld) 47.2 % Normal 43.0-75.0 [facility] Comment on above: Performed By: #### C BC ####[facility] Tenrfwdtpc9236[address] [place], [place] [address]Dr. Farhat Elvis Platelet mean volume (Bld) [Entitic vol] 11.0 fL Normal 9.5-13.5 [facility] Comment on above: Performed By: #### C BC ####[facility] Zmygyosfqc8789 [place] [address]Dr. Farhat Leal PLT 191 103/ul Normal 150-450 [facility] Comment on above: Performed By: #### C BC ####[facility] Fwnceirqgg7292 [place] [address]Dr. Farhat Leal RBC 3.92 106/ul Critically low 4.70-6.10 [facility] Comment on above: Performed By: #### C BC ####[facility] Iqojgokvyb[address] [place], [place] [address]Dr. Farhat Leal WBC 6.2 103/ul Normal 4.0-11.0 [facility] Comment on above: Performed By: #### C BC ####[facility] U[address]bdpxzjk1847[address] [place], [place] [address]Dr. Farhat Leal MAGNESIUMon 05-08-2022 Magnesium [Mass/Vol] 1.9 mg/dL Normal 1.8-2.4 [facility] Comment on above: Performed By: #### P HOS, MG ####[facility] Jmoxnusyrv4[address] [place], [place] [address]Dr. Farhat Leal PHOSPHORUSon 05-08-2022 Phosphate [Mass/Vol] 4.5 mg/dL Normal 2.6-4.7 [facility] Comment on above: Performed By: #### P HOS, MG ####[facility] H[address]avhedqg[address] [place], [place] [address]Dr. Farhat Leal PROF 14(COMP METB)on 023 Albumin [Mass/Vol] 2.9 g/dL Critically low 3.4-5.0 [facility] Comment on above: Performed By: #### C MP ####[facility] Ilcpuigffb1769[address] [place], [place] [address]Dr. Farhat Leal Albumin/Globulin [Mass ratio] 0.9 {ratio} Normal [facility] Comment on above: Performed By: #### C MP ####[facility] Duiuqmbhdb2860 [place] [address]Dr. Farhat Leal ALP [Catalytic activity/Vol] 70 U/L Normal 46-116 [facility] Comment on above: Performed By: #### C MP ####[facility] Vczoawcvyq9894 [place] [phone]. Farhat Leal ALT [Catalytic activity/Vol] 13 U/L Critically low 16-63 [facility] Comment on above: Performed By: #### C MP ####[facility] Xjhdcmmahn8129 [place] [phone]. Farhat Leal Anion gap [Moles/Vol] 14.6 mmol/L Normal [facility] Comment on above: Performed By: #### C MP ####[facility] Kamzwdxgth3944 [place] [phone]. Farhat Leal AST [Catalytic activity/Vol] 17 U/L Normal 15-37 [facility] Comment on above: Performed By: #### C MP ####[facility] Grotmzliuk6980 [place] [address]Dr. Farhat Leal Bilirubin [Mass/Vol] 0.8 mg/dL Normal 0.2-1.0 [facility] Comment on above: Performed By: #### C MP ####[facility] Xzdsqepzeb0556 [place] [address]Dr. Farhat Leal Calcium [Mass/Vol] 8.9 mg/dL Normal 8.5-10.[address] [facility] Comment on above: Performed By: #### C MP ####[facility] Xjgpyflatj8840 [place] [address]Dr. Farhat Leal Chloride [Moles/Vol] 102 mmol/L Normal 98-107 [facility] Comment on above: Performed By: #### C MP ####[facility] Pcedgobmrv8242 [place] [phone]. Farhat Leal CO2 [Moles/Vol] 22.9 mmol/L Normal 21.0-32.0 [facility] Comment on above: Performed By: #### C MP ####[facility] [address] [place], [place] [id number]. Farhat Leal Creatinine [Mass/Vol] 1.20 mg/dL Normal 0.70-1.30 [facility] Comment on above: Performed By: #### C MP ####[facility] Efrggihddf8958 [place], [place] [address]Un. Farhat Leal EGFR-AF BRITISH >60 Normal >=60 [facility] Comment on above: Performed By: #### C MP ####[facility] Ucgueakybh9295 [place] [phone]. Farhat Leal EGFR-NON AF BRITISH 59 mL/min/1.73m2 Critically low >=60 [facility] Comment on above: Performed By: #### C MP ####[facility] Dudpsyoiax6229 [place] [phone]. Farhat Leal Globulin (S) [Mass/Vol] 3.1 g/dL Normal [facility] Comment on above: Performed By: #### C MP ####[facility] Ywntdqrtov3043 [place] [phone]. Farhat Leal Glucose [Mass/Vol] 447 mg/dL Critically high 74-106 [facility] Comment on above: Performed By: #### C MP ####[facility] Xqrabiatco7814 [place] [phone]. Farhat Leal Potassium [Moles/Vol] 4.5 mmol/L Normal 3.5-5.1 [facility] Comment on above: Performed By: #### C MP ####[facility] Izuzjlzuyi9166 [place] [phone]. Farhat Leal Protein [Mass/Vol] 6.0 g/dL Critically low 6.4-8.2 [facility] Comment on above: Performed By: #### C MP ####[facility] Auzpihdlup0838 [place] [phone]. Farhat Leal Sodium [Moles/Vol] 135 mmol/L Critically low 136-145 [facility] Comment on above: Performed By: #### C MP ####[facility] Rlxdjyjkif3985 [place] [phone]. Farhat Leal Urea nitrogen [Mass/Vol] 52.0 mg/dL Critically high 7.0-18.0 [facility] Comment on above: Performed By: #### C MP ####[facility] Fpfegjxmmj3415 [place] [address]Dr. Farhat Leal Urea nitrogen/Creatinine [Mass ratio] 43.3 mg/mg Normal [facility] Comment on above: Performed By: #### C MP ####[facility] Ncmyikpadi[address] [place], [place] [address]DrSkylar Leal PROTIMEon 05-06-2022 INR Coag (PPP) [Relative time] 2.25 {INR} Normal [facility] Comment on above: Performed By: #### P T ####[facility] Wof[address]mkoxv[address] [place], [place] [address]DrSkylar Leal INR GUIDELINES SEE BELOW Normal [facility] Comment on above: Result Comment: MALINA RED INR: 2.0 - 3.0 CONDITIONS NOT LISTED BELOW 2.5 - 3.5 FOR PROSTHETIC HEART VALVE REPLACEMENT 2.5 - 3.5 RECURRENT THROMBOSIS Performed By: #### P T ####[facility] O[address]umboqwcn2286[address] [place], [place] [address]DrSkylar Leal PT Coag (PPP) [Time] 22.8 s Critically high 9.0-11.6 [facility] Comment on above: Performed By: #### P T ####[facility] Muwplwpxff[address] [place], [place] [address]DrSkylar Leal FK506 (TACROLIMUS) WHOLE BLO ODon 05-04-2022 Tacrolimus (FK506), Blood 10.4 ng/mL Normal 2.0-20.0 [facility] Comment on above: Result Comment: Trou gh (immediately following transplant) 15.0 . Trough (steady state, 2 weeks or more after transplant): 3.0 - 8.0 . Performed by LC-MS/MS technology. Performed By: #### F K506T ####[facility] Jftawlwdcv86[address] [place], [place] [address]DrSkylar Leal CBC AUTO DIFFon 05-01-2022 BASO # 0.1 103/ul Normal 0.0-0.1 [facility] Comment on above: Performed By: #### C BC ####[facility] Jhlodlbeap40[address] [place], [place] [address]DrSkylar Leal Basophils/100 WBC (Bld) 0.7 % Normal 0.2-2.0 [facility] Comment on above: Performed By: #### C BC ####[facility] Sfrbttcizj1978[address] [place], [place] [address]Dr. Farhat Leal EO # 0.2 103/ul Normal 0.0-0.7 [facility] Comment on above: Performed By: #### C BC ####[facility] Cophkuhcrv5155[address] [place], [place] [address]Dr. Farhat Leal Eosinophils/100 WBC (Bld) 3.2 % Normal 0.9-7.0 [facility] Comment on above: Performed By: #### C BC ####[facility] Tlzrfhlblr[address] [place], [place] [address]Dr. Farhat Leal Erythrocyte distribution width (RBC) [Ratio] 16.4 % Critically high 11.0-15.0 [facility] Comment on above: Performed By: #### C BC ####[facility] Aqjfyfzlmw[address] [place], [place] [address]Dr. Farhat Leal Hematocrit (Bld) [Volume fraction] 35.1 % Critically low 42.0-54.0 [facility] Comment on above: Performed By: #### C BC ####[facility] Dnpvocyrkg8932[address] [place], [place] [address]Dr. Farhat Leal Hemoglobin (Bld) [Mass/Vol] 11.6 g/dL Critically low 14.0-18.0 [facility] Comment on above: Performed By: #### C BC ####[facility] Efeahpnckn05[address] [place], [place] [address]Dr. Farhat Leal IG # 0.03 10e3/ul Normal 0.00-0.03 [facility] Comment on above: Performed By: #### C BC ####[facility] Aqmjdpafji03[address] [place], [place] [address]Dr. Farhat Leal IG % 0.4 % Normal 0.0-0.5 [facility] Comment on above: Performed By: #### C BC ####[facility] [address]wfiar[address] [place], [place] [id number]. Madelynlorri Leal LYMPH # 2.4 103/ul Normal 1.2-3.8 [facility] Comment on above: Performed By: #### C BC ####[facility] Lpjdxcjpmx0266 [place] [address]Dr. Madelynlorri Leal Lymphocytes/100 WBC (Bld) 35.1 % Normal 20.5-60.0 [facility] Comment on above: Performed By: #### C BC ####[facility] Bzoxhgnhqs7241 [place] [address]Dr. Farhat Leal MANUAL DIFF REQ NO Normal [facility] Comment on above: Performed By: #### C BC ####[facility] Rvptjaqscm6379 [place] [address]Dr. Farhat Elvis MCH (RBC) [Entitic mass] 29.4 pg Normal 25.9-34.0 [facility] Comment on above: Performed By: #### C BC ####[facility] Jpcvavzhke5466 [place] [address]Dr. Farhat Elvis MCHC (RBC) [Mass/Vol] 33.0 g/dL Normal 29.9-35.2 [facility] Comment on above: Performed By: #### C BC ####[facility] Bemqnqgtxx9422[address] [place], [place] [address]Dr. Farhat Leal MCV (RBC) [Entitic vol] 88.9 fL Normal 80.0-94.0 [facility] Comment on above: Performed By: #### C BC ####[facility] Qsarsktavg1196 [place] [address]Dr. Farhat Leal MONO # 0.7 103/ul Normal 0.3-0.8 [facility] Comment on above: Performed By: #### C BC ####[facility] Ahuyvywynu8342 [place] [address]Dr. Farhat Leal Monocytes/100 WBC (Bld) 9.6 % Normal 1.7-12.0 [facility] Comment on above: Performed By: #### C BC ####[facility] Nbyqbxdwxr8[address] [place], [place] [address]Dr. Farhat Leal NEUT # 3.5 103/ul Normal 1.4-6.5 [facility] Comment on above: Performed By: #### C BC ####[facility] Rffittkfkj9179 [place] [address]Dr. Farhat Leal Neutrophils/100 WBC (Bld) 51.0 % Normal 43.0-75.0 [facility] Comment on above: Performed By: #### C BC ####[facility] Hsmflufyvj5709 [place] [address]Dr. Farhat Leal Platelet mean volume (Bld) [Entitic vol] 10.3 fL Normal 9.5-13.5 [facility] Comment on above: Performed By: #### C BC ####[facility] Sdwwwzuybc9594 [place] [address]Dr. Farhat Elvis PLT 184 103/ul Normal 150-450 [facility] Comment on above: Performed By: #### C BC ####[facility] Ytgewkyyad[address] [place], [place] [address]Dr. Madelynlorri Elvis RBC 3.95 106/ul Critically low 4.70-6.10 [facility] Comment on above: Performed By: #### C BC ####[facility] Ttmdvoslfb[address] [place], [place] [address]Dr. Farhat Elvis WBC 7.0 103/ul Normal 4.0-11.0 [facility] Comment on above: Performed By: #### C BC ####[facility] Uhwoxbdezd177[address] [place], [place] [address]DrSkylar Leal PROF 14(COMP METB)on 023 Albumin [Mass/Vol] 2.6 g/dL Critically low 3.4-5.0 [facility] Comment on above: Performed By: #### C MP ####[facility] Anbeqrbmrc206[address] [place], [place] [address]Dr. Madelynlorri Elvis Albumin/Globulin [Mass ratio] 0.9 {ratio} Normal [facility] Comment on above: Performed By: #### C MP ####[facility] [address]vpf[address] [place], [place] [id number]. Farhat Elvis ALP [Catalytic activity/Vol] 53 U/L Normal 46-116 [facility] Comment on above: Performed By: #### C MP ####[facility] Zdjljsxmit5701 [place] [address]Dr. Farhat Leal ALT [Catalytic activity/Vol] 17 U/L Normal 16-63 [facility] Comment on above: Performed By: #### C MP ####[facility] [address]vbsuaxf[address] [place], [place] [address]Dr. Farhat Leal Anion gap [Moles/Vol] 10.0 mmol/L Normal [facility] [facility] Comment on above: Performed By: #### C MP ####[facility] Kzuzhveawh[address] [place], [place] [address]Dr. Farhat Leal AST [Catalytic activity/Vol] 19 U/L Normal 15-37 [facility] Comment on above: Performed By: #### C MP ####[facility] Bpvzkmpoct55[address] [place], [place] [address]Dr. Farhat Leal Bilirubin [Mass/Vol] 0.5 mg/dL Normal 0.2-1.0 [facility] Comment on above: Performed By: #### C MP ####[facility] Hoqgyyiruo11[address] [place], [place] [address]Dr. Farhat Leal Calcium [Mass/Vol] 8.4 mg/dL Critically low 8.5-10.1 [facility] Comment on above: Performed By: #### C MP ####[facility] W[address]qbqbftr[address] [place], [place] [address]Dr. Farhat Leal Chloride [Moles/Vol] 108 mmol/L Critically high 98-107 [facility] Comment on above: Performed By: #### C MP ####[facility] Nvvtmqnlnx727[address] [place], [place] [address]Dr. Farhat Leal CO2 [Moles/Vol] 26.9 mmol/L Normal 21.0-32.0 [facility] Comment on above: Performed By: #### C MP ####[facility] Tnmdgjiuva36[address] [place], [place] [address]Dr. Farhat Leal Creatinine [Mass/Vol] 1.20 mg/dL Normal 0.70-1.30 [facility] Comment on above: Performed By: #### C MP ####[facility] [address]zoztp[address] [place] [id number]. Farhat Elvis EGFR-AF BRITISH >60 Normal >=60 [facility] Comment on above: Performed By: #### C MP ####[facility] Xblffceenz1637 [place] [phone]. Farhat Elvis EGFR-NON AF BRITISH 59 mL/min/1.73m2 Critically low >=60 [facility] Comment on above: Performed By: #### C MP ####[facility] Gjzjgfkkmy[address] [place] [address]Dr. Madelynlorri Leal Globulin (S) [Mass/Vol] 3.0 g/dL Normal [facility] Comment on above: Performed By: #### C MP ####[facility] Cfspystvpk1780[address] [place], [place] [address]Dr. Farhat Leal Glucose [Mass/Vol] 213 mg/dL Critically high 74-106 [facility] Comment on above: Performed By: #### C MP ####[facility] Xloyqxxtfg226[address] [place], [place] [address]Dr. Farhat Leal Potassium [Moles/Vol] 3.9 mmol/L Normal 3.5-5.1 [facility] Comment on above: Performed By: #### C MP ####[facility] Bonwkpiapw[address] [place] [address]Dr. Farhat Leal Protein [Mass/Vol] 5.6 g/dL Critically low 6.4-8.2 [facility] Comment on above: Performed By: #### C MP ####[facility] Vabnjzovqr60[address] [place] [address]Dr. Farhat Leal Sodium [Moles/Vol] 141 mmol/L Normal 136-[address] [facility] Comment on above: Performed By: #### C MP ####[facility] Afxceckjdn8636 [place] [phone]. Farhat Leal Urea nitrogen [Mass/Vol] 61.0 mg/dL Critically high 7.0-18.0 [facility] Comment on above: Performed By: #### C MP ####[facility] Ylcxzvyaqr8694[address] [place], [place] [address]DrSkylar Leal Urea nitrogen/Creatinine [Mass ratio] 50.8 mg/mg Normal [facility] Comment on above: Performed By: #### C MP ####[facility] Mxwgarcwzd6338[address] [place], [place] [address]DrSkylar Leal FK506 (TACROLIMUS) WHOLE BLO ODon 04-27-2022 Tacrolimus (FK506), Blood 16.5 ng/mL Normal 2.0-20.0 [facility] Comment on above: Result Comment: Trou gh (immediately following transplant) 15.0 . Trough (steady state, 2 weeks or more after transplant): 3.0 - 8.0 . Performed by LC-MS/MS technology. Performed By: #### F K506T ####[facility] Kvmfdouuht2117[address] [place], [place] [address]DrSkylar Leal CBC AUTO DIFFon 04-24-2022 BASO # 0.0 103/ul Normal 0.0-0.1 [facility] Comment on above: Performed By: #### C BC ####[facility] Lmyipqpflq0613[address] [place], [place] [address]Dr. Farhat Leal Basophils/100 WBC (Bld) 0.5 % Normal 0.2-2.0 [facility] Comment on above: Performed By: #### C BC ####[facility] Frktfbzcgb0170[address] [place], [place] [address]DrSkylar Leal EO # 0.2 103/ul Normal 0.0-0.7 [facility] Comment on above: Performed By: #### C BC ####[facility] Iplvwvqscj0658[address] [place], [place] [address]DrSkylar Leal Eosinophils/100 WBC (Bld) 3.1 % Normal 0.9-7.0 [facility] Comment on above: Performed By: #### C BC ####[facility] Warwicuhby7485[address] [place], [place] [address]DrSkylar Leal Erythrocyte distribution width (RBC) [Ratio] 16.3 % Critically high 11.0-15.0 [facility] Comment on above: Performed By: #### C BC ####[facility] Vuajiscisf[address] [place] [address]Dr. Farhat Leal Hematocrit (Bld) [Volume fraction] 34.0 % Critically low 42.0-54.0 [facility] Comment on above: Performed By: #### C BC ####[facility] Qvvxpafzfr750[address] [place], [place] [address]Dr. Farhat Leal Hemoglobin (Bld) [Mass/Vol] 11.6 g/dL Critically low 14.0-18.0 [facility] Comment on above: Performed By: #### C BC ####[facility] Sjtkxhwora8844[address] [place], [place] [address]Dr. Farhat Leal IG # 0.02 10e3/ul Normal 0.00-0.03 [facility] Comment on above: Performed By: #### C BC ####[facility] Yfrcwfgeqy3180[address] [place], [place] [address]Dr. Farhat Leal IG % 0.4 % Normal 0.0-0.5 [facility] Comment on above: Performed By: #### C BC ####[facility] Ncidxyrrmn377[address] [place], [place] [address]Dr. Farhat Leal LYMPH # 2.2 103/ul Normal 1.2-3.8 [facility] Comment on above: Performed By: #### C BC ####[facility] Zigdjeoxit1133[address] [place], [place] [address]Dr. Farhat Elvis Lymphocytes/100 WBC (Bld) 38.8 % Normal 20.5-60.0 [facility] Comment on above: Performed By: #### C BC ####[facility] Peohlkumxq425[address] [place], [place] [address]DrSkylar Farhat Elvis MANUAL DIFF REQ NO Normal [facility] Comment on above: Performed By: #### C BC ####[facility] Vbtgolzlsb962[address] [place], [place] [address]Dr. Farhat Elvis MCH (RBC) [Entitic mass] 30.1 pg Normal 25.9-34.0 [facility] Comment on above: Performed By: #### C BC ####[facility] Dwyypxkzgn8648 [place] [address]Dr. Farhat Leal MCHC (RBC) [Mass/Vol] 34.1 g/dL Normal 29.9-35.2 [facility] Comment on above: Performed By: #### C BC ####[facility] Atztdqvjhw295[address] [place], [place] [address]Dr. Farhat Elvis MCV (RBC) [Entitic vol] 88.1 fL Normal 80.0-94.0 [facility] Comment on above: Performed By: #### C BC ####[facility] Zgylgqyfrr7[address] [place], [place] [address]Dr. Farhat Leal MONO # 0.6 103/ul Normal 0.3-0.8 [facility] Comment on above: Performed By: #### C BC ####[facility] Gejhpsjhui1387[address] [place], [place] [address]Dr. Farhat Leal Monocytes/100 WBC (Bld) 10.8 % Normal 1.7-12.0 [facility] Comment on above: Performed By: #### C BC ####[facility] Pxvbcyzrps4812[address] [place], [place] [address]Dr. Madelynlorri Leal NEUT # 2.6 103/ul Normal 1.4-6.5 [facility] Comment on above: Performed By: #### C BC ####[facility] Ifvaxvjmth2611[address] [place], [place] [address]Dr. Farhat Leal Neutrophils/100 WBC (Bld) 46.4 % Normal 43.0-75.0 [facility] Comment on above: Performed By: #### C BC ####[facility] Zpjljssxrx2926[address] [place], [place] [address]Dr. Farhat Leal Platelet mean volume (Bld) [Entitic vol] 10.9 fL Normal 9.5-13.5 [facility] Comment on above: Performed By: #### C BC ####[facility] Qlmtvwafgk07[address] [place] [address]Dr. Farhat Leal PLT 159 103/ul Normal 150-450 [facility] Comment on above: Performed By: #### C BC ####[facility] Hqqzastwty1739 [place] [address]Dr. Farhat Leal RBC 3.86 106/ul Critically low 4.70-6.10 [facility] Comment on above: Performed By: #### C BC ####[facility] Ytnixxiszf1398 [place] [address]Dr. Farhat Leal WBC 5.6 103/ul Normal 4.0-11.0 [facility] Comment on above: Performed By: #### C BC ####[facility] Xfkuwnogoy86[address] [place] [address]Dr. Farhat Leal PROTIMEon 04-24-2022 INR Coag (PPP) [Relative time] 3.23 {INR} Normal [facility] Comment on above: Performed By: #### P T ####[facility] Yupzhuvvqi9[address] [place], [place] [address]Dr. Farhat Leal INR GUIDELINES SEE BELOW Normal [facility] Comment on above: Result Comment: MALINA RED INR: 2.0 - 3.0 CONDITIONS NOT LISTED BELOW 2.5 - 3.5 FOR PROSTHETIC HEART VALVE REPLACEMENT 2.5 - 3.5 RECURRENT THROMBOSIS Performed By: #### P T ####[facility] Xcxlkjaksx20[address] [place] [address]Dr. Farhat Leal PT Coag (PPP) [Time] 32.0 s Critically high 9.0-11.6 [facility] Comment on above: Performed By: #### P T ####[facility] Vxxymwiqmc8536[address] [place], [place] [address]Dr. Farhat Elvis FK506 (TACROLIMUS) WHOLE BLO ODon 04-20-2022 Tacrolimus (FK506), Blood 13.9 ng/mL Normal 2.0-20.0 [facility] Comment on above: Result Comment: Trou gh (immediately following transplant) 15.0 . Trough (steady state, 2 weeks or more after transplant): 3.0 - 8.0 . Performed by LC-MS/MS technology. Performed By: #### F K506T ####[facility] Itpvfquuxa22[address] [place] [id number]. Farhat Leal CBC AUTO DIFFon 04-17-2022 BASO # 0.0 103/ul Normal 0.0-0.1 [facility] Comment on above: Performed By: #### C BC ####[facility] Inerwsluad37[address] [place] [address]Dr. Farhat Leal Basophils/100 WBC (Bld) 0.4 % Normal 0.2-2.0 [facility] Comment on above: Performed By: #### C BC ####[facility] Tcandgjqla0746[address] [place], [place] [address]Dr. Farhat Leal EO # 0.2 103/ul Normal 0.0-0.7 [facility] Comment on above: Performed By: #### C BC ####[facility] Mmucmlyxfo9867[address] [place], [place] [address]Dr. Farhat Leal Eosinophils/100 WBC (Bld) 2.8 % Normal 0.9-7.0 [facility] Comment on above: Performed By: #### C BC ####[facility] Txhdskohqa49[address] [place], [place] [address]Dr. Farhat Leal Erythrocyte distribution width (RBC) [Ratio] 16.1 % Critically high 11.0-15.0 [facility] Comment on above: Performed By: #### C BC ####[facility] Krheysiodl1465[address] [place], [place] [address]Dr. Farhat Leal Hematocrit (Bld) [Volume fraction] 35.7 % Critically low 42.0-54.0 [facility] Comment on above: Performed By: #### C BC ####[facility] Oyqlpjmdbn7[address] [place], [place] [address]Dr. Farhat Leal Hemoglobin (Bld) [Mass/Vol] 12.2 g/dL Critically low 14.0-18.0 [facility] Comment on above: Performed By: #### C BC ####[facility] Nyfyyrjtii0956[address] [place], [place] [address]Dr. Farhat Leal IG # 0.03 10e3/ul Normal 0.00-0.03 [facility] Comment on above: Performed By: #### C BC ####[facility] Efyxvtouik9[address] [place] [address]DrSkylar Farhat Leal IG % 0.4 % Normal 0.0-0.5 [facility] Comment on above: Performed By: #### C BC ####[facility] Rlrxvpqtrx1967 [place] [address]DrSkylar Farhat Elvis LYMPH # 2.4 103/ul Normal 1.2-3.8 [facility] Comment on above: Performed By: #### C BC ####[facility] Culgudexra8[address] [place], [place] [address]DrSkylar Madelynlorri Leal Lymphocytes/100 WBC (Bld) 36.1 % Normal 20.5-60.0 [facility] Comment on above: Performed By: #### C BC ####[facility] Sthpkcstip[address] [place], [place] [address]DrSkylar Madelynlorri Leal MANUAL DIFF REQ NO Normal [facility] Comment on above: Performed By: #### C BC ####[facility] W[address]qwulyjf[address] [place], [place] [address]DrSkylar Farhat Elvis MCH (RBC) [Entitic mass] 30.3 pg Normal 25.9-34.0 [facility] Comment on above: Performed By: #### C BC ####[facility] Qbiwxtslwy[address] [place], [place] [address]DrSkylar Farhat Elvis MCHC (RBC) [Mass/Vol] 34.2 g/dL Normal 29.9-35.2 [facility] Comment on above: Performed By: #### C BC ####[facility] Crxoslgbcw5[address] [place], [place] [address]DrSkylar Madelynlorri Leal MCV (RBC) [Entitic vol] 88.6 fL Normal 80.0-94.0 [facility] Comment on above: Performed By: #### C BC ####[facility] S[address]crmzabj[address] [place], [place] [address]DrSkylar Leal MONO # 0.7 103/ul Normal 0.3-0.8 [facility] Comment on above: Performed By: #### C BC ####[facility] Hvaahpaxjb3[address] [place] [phone]. Farhat Leal Monocytes/100 WBC (Bld) 10.1 % Normal 1.7-12.0 [facility] Comment on above: Performed By: #### C BC ####[facility] Mlcvdclkpj0074 [place] [phone]. Farhat Leal NEUT # 3.4 103/ul Normal 1.4-6.5 [facility] Comment on above: Performed By: #### C BC ####[facility] Ijawpeigpw3716 [place] [address]Dr. Farhat Leal Neutrophils/100 WBC (Bld) 50.2 % Normal 43.0-75.0 [facility] Comment on above: Performed By: #### C BC ####[facility] Pkbyfyblml2434 [place] [address]Dr. Farhat Leal Platelet mean volume (Bld) [Entitic vol] 11.8 fL Normal 9.5-13.5 [facility] Comment on above: Performed By: #### C BC ####[facility] Yvzkxdowhp5382 [place] [address]Dr. Farhat Leal PLT 193 103/ul Normal 150-450 [facility] Comment on above: Performed By: #### C BC ####[facility] Rjpuneresz7[address] [place] [phone]. Farhat Leal RBC 4.03 106/ul Critically low 4.70-6.10 [facility] Comment on above: Performed By: #### C BC ####[facility] Xgdtpkmevn7040 [place] [phone]. Farhat Leal WBC 6.8 103/ul Normal 4.0-11.0 [facility] Comment on above: Performed By: #### C BC ####[facility] Okgqhumerq8362 [place] [phone] Leal PROF 14(COMP METB)on 023 Albumin [Mass/Vol] 2.9 g/dL Critically low 3.4-5.0 [facility] Comment on above: Performed By: #### C MP ####[facility] Qnetnbpmjr7902 [place] [address]Dr. Farhat Leal Albumin/Globulin [Mass ratio] 0.9 {ratio} Normal [facility] Comment on above: Performed By: #### C MP ####[facility] Wiujwblrcv[address] [place] [address]Dr. Farhat Elvis ALP [Catalytic activity/Vol] 67 U/L Normal 46-116 [facility] Comment on above: Performed By: #### C MP ####[facility] Nlazfwwrjs42[address] [place] [address]Dr. Farhat Elvis ALT [Catalytic activity/Vol] 15 U/L Critically low 16-63 [facility] Comment on above: Performed By: #### C MP ####[facility] Qxxlpiyyne0080 [place] [address]Dr. Farhat Elvis Anion gap [Moles/Vol] 10.8 mmol/L Normal [facility] Comment on above: Performed By: #### C MP ####[facility] [address]vovsvek[address] [place], [place] [address]Dr. Farhat Elvis AST [Catalytic activity/Vol] 23 U/L Normal 15-37 [facility] Comment on above: Performed By: #### C MP ####[facility] Twwcjuyzxy[address] [place], [place] [address]Dr. Farhat Elvis Bilirubin [Mass/Vol] 0.6 mg/dL Normal 0.2-1.0 [facility] Comment on above: Performed By: #### C MP ####[facility] Hslngvutnx8549 [place] [address]Dr. Farhat Elvis Calcium [Mass/Vol] 8.7 mg/dL Normal 8.5-10.[address] [facility] Comment on above: Performed By: #### C MP ####[facility] Toxhyneefj[address] [place], [place] [address]Dr. Farhat Leal Chloride [Moles/Vol] 105 mmol/L Normal 98-107 [facility] Comment on above: Performed By: #### C MP ####[facility] Vjxoxzrrce3106 [place] [phone]. Farhat Leal CO2 [Moles/Vol] 29.5 mmol/L Normal 21.0-32.0 [facility] Comment on above: Performed By: #### C MP ####[facility] Ycfjmdzpcr7604 [place] [phone]. Farhat Leal Creatinine [Mass/Vol] 1.37 mg/dL Critically high 0.70-1.30 [facility] Comment on above: Performed By: #### C MP ####[facility] Izwllkuczv2164 [place] [phone]. Farhat Elvis EGFR-AF BRITISH >60 Normal >=60 [facility] Comment on above: Performed By: #### C MP ####[facility] Sucudxugvt1126 [place] [phone]. Farhat Elvis EGFR-NON AF BRITISH 50 mL/min/1.73m2 Critically low >=60 [facility] Comment on above: Performed By: #### C MP ####[facility] Frukfgqapo9835 [place] [phone]. Farhat Elvis Globulin (S) [Mass/Vol] 3.1 g/dL Normal [facility] Comment on above: Performed By: #### C MP ####[facility] Naamrajteo6[address] [place] [phone]. Farhat Elvis Glucose [Mass/Vol] 203 mg/dL Critically high 74-106 [facility] Comment on above: Performed By: #### C MP ####[facility] Lfvjbhxyvh9031 [place] [phone]. Farhat Leal Potassium [Moles/Vol] 4.3 mmol/L Normal 3.5-5.1 [facility] Comment on above: Performed By: #### C MP ####[facility] Zeytqpdzfs5994 [place] [phone]. Madelynlorri Leal Protein [Mass/Vol] 6.0 g/dL Critically low 6.4-8.2 [facility] Comment on above: Performed By: #### C MP ####[facility] Vxxvadghac3129 [place] [address]Dr. Farhat Leal Sodium [Moles/Vol] 141 mmol/L Normal 136-[address] [facility] Comment on above: Performed By: #### C MP ####[facility] Dcavklheeq7240 [place] [address]Dr. Farhat Leal Urea nitrogen [Mass/Vol] 65.0 mg/dL Critically high 7.0-18.0 [facility] Comment on above: Performed By: #### C MP ####[facility] Qhkkvymygb7214 [place] [address]Dr. Farhat Leal Urea nitrogen/Creatinine [Mass ratio] 47.4 mg/mg Normal [facility] Comment on above: Performed By: #### C MP ####[facility] Zmpllzacdd6421 [place] [address]Dr. Farhat Leal PROTIMEon 04-15-2022 INR Coag (PPP) [Relative time] 3.88 {INR} Normal [facility] Comment on above: Performed By: #### P T ####[facility] Ycwivhivbz6785 [place] [address]Dr. Farhat Leal INR GUIDELINES SEE BELOW Normal [facility] Comment on above: Result Comment: MALINA RED INR: 2.0 - 3.0 CONDITIONS NOT LISTED BELOW 2.5 - 3.5 FOR PROSTHETIC HEART VALVE REPLACEMENT 2.5 - 3.5 RECURRENT THROMBOSIS Performed By: #### P T ####[facility] Tduqcqcisn4515 [place] [address]Dr. Farhat Leal PT Coag (PPP) [Time] 38.1 s Critically high 9.0-11.6 [facility] Comment on above: Performed By: #### P T ####[facility] Eqwhivvcyh80[address] [place], [place] [address]Dr. Farhat Leal Glucose Glucometer (BldC) [M ass/Vol]Ordered By: Sadia Aguilar on 04-14-2022 Glucose [Mass/Vol] 162 mg/dL [facility] Comment on above: Random Glucose Refer ence Range is dependent on time and content of last meal. Glucose of more than 200 mg/dL in a nonstressed, ambulatory subject supports the diagnosis of Diabetes Mellitus. Glucose Poct Glucometerson 0 04-14-2022 Commemt1 Glu2: Cleaned Meter Normal [facility] Comment on above: Result Comment: PERF ORMED BY: [facility] [address] PATHOLOGIST RIVETER HAND JOSE F ELLIOTT M.D. Performed By: #### G LULS #### Point of Care testing , Glucose [Mass/Vol] 162 mg/dL Normal [facility] Comment on above: Result Comment: [place] om Glucose Reference Range is dependent on time and content of last meal. Glucose of more than 200 mg/dL in a nonstressed, ambulatory subject supports the diagnosis of Diabetes Mellitus. Performed By: #### G LULS #### Point of Care testing , No Panel InformationOrdered By: Sadia Aguilar on 04-14-2022 Bedside Glucose Comment Glu2: cleaned meter [facility] MAGNESIUMon 04-13-2022 Magnesium [Mass/Vol] 1.7 mg/dL Critically low 1.8-2.4 [facility] Comment on above: Performed By: #### HENRI Winters ####[facility] Otmitymdsu8[address] [place] [address]Dr. Farhat Leal PHOSPHORUSon 04-13-2022 Phosphate [Mass/Vol] 4.8 mg/dL Critically high 2.6-4.7 [facility] Comment on above: Performed By: #### M HENRI Manzo ####[facility] Lmctzihxqy3672 [place] [phone]. Farhat Leal PROTIMEon 04-13-2022 INR Coag (PPP) [Relative time] 3.16 {INR} Normal [facility] Comment on above: Performed By: #### P T ####[facility] Fbwtlhhamd8508 [place] [address]Dr. Farhat Leal INR GUIDELINES SEE BELOW Normal [facility] Comment on above: Result Comment: MALINA RED INR: 2.0 - 3.0 CONDITIONS NOT LISTED BELOW 2.5 - 3.5 FOR PROSTHETIC HEART VALVE REPLACEMENT 2.5 - 3.5 RECURRENT THROMBOSIS Performed By: #### P T ####[facility] Dyktzghlka3784 [place] [address]Dr. Farhat Leal PT Coag (PPP) [Time] 31.4 s Critically high 9.0-11.6 [facility] Comment on above: Performed By: #### P T ####[facility] Blhbjgnfot0415 [place] [address]Dr. Farhat Leal MAGNESIUMon 03-11-2022 Magnesium [Mass/Vol] 1.6 mg/dL Critically low 1.8-2.4 [facility] Comment on above: Performed By: #### M Anais, HENRI ####[facility] Caudvdfano[address] [place] [address]Dr. Farhat Leal PHOSPHORUSon 03-11-2022 Phosphate [Mass/Vol] 5.3 mg/dL Critically high 2.6-4.7 [facility] Comment on above: Performed By: #### Demetrice Manzo, HENRI ####[facility] [address]zvr[address]oxwu[address] [place], [place] [address]Dr. Farhat Leal CNOVon 02-26-2022 CNKASHMIR Office Visit (HONEY ) ALEX ALMONTE ([id number]) 1945 M TRN Date Time Provider Department 02/26/22 3:00 PM HINA PETERSON During your visit today, we recorded the following information about you: Temperature Pulse Blood pressure 96.6 degrees 75/minute 88/75 Hina Peterson MD, MD 02/26/2022 4:31 PM Signed [facility]PART[facility] OF [facility]ASCULAR SURGERY OUTPATIENT VISIT DATE [...] his postop visit. He has been in [facility] since then and has been recovering from his acute on chronic congestive heart failure. His wound has largely been healing without any issues and the maxwell and sutures were removed at the nursing facility. He comes here with a lateral wound eschar. He denies any fevers, chills, or any drainage. He is on anticoagulation. 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 Patient on mycophenolate mofetil , cellcept and prednisone Mixed hyperlipidemia due to type 2 diabetes mellitus ([facility]) 11/29/2021 Osteomyelitis ([facility]) 11/29/2021 Paroxysmal atrial fibrillation ([facility]) Renal transplant, status post SA node dysfunction ([facility]) s/p pacemaker Type 2 diabetes mellitus with diabetic neuropathy, with long-term current use of insulin ([facility]) 02/24/2002 PAST SURGICAL HISTORY Procedure [...] by mouth daily with lunch. Magic Cup Baldwin with lunch aspirin, enteric coated (ASPIRIN, ENTERIC COATED) 81 mg EC tablet Take 1 tablet by (more content not included)... [facility] 02-25-2022 INR Coag (PPP) [Relative time] 1.31 {INR} Normal [facility] Comment on above: Performed By: #### P T ####[facility] [address] [place] [address]DrSkylar Leal INR GUIDELINES SEE BELOW Normal [facility] Comment on above: Result Comment: MALINA RED INR: 2.0 - 3.0 CONDITIONS NOT LISTED BELOW 2.5 - 3.5 FOR PROSTHETIC HEART VALVE REPLACEMENT 2.5 - 3.5 RECURRENT THROMBOSIS Performed By: #### P T ####[facility] [address] [place] [address]DrSkylar Leal PT Coag (PPP) [Time] 13.7 s Critically high 9.0-11.6 [facility] Comment on above: Performed By: #### P T ####[facility] [address] [place] [address]DrSkylar Leal CNPNon 02-19-2022 CNPN Telephone (TXCTGL) ALEX ALMONTE ([id number]) 1945 M TRN Date Time Provider Department [...] by mouth daily with lunch. 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 UNCOMPL ADULT-UNCONTRLLED [[id number]] 02/24/2002 KIDNEY TRANSPLANT STATUS [Z94.0] 09/07/2003 PROPHYLACTIC IMMUNOTHERAPY [Z29.8] 07/30/2006 HALF-WAY STEROIDS [[id number]] 07/30/2006 VITAMIN D DEFICIENCY NOS [E55.9] 09/07/2008 [...] diabetes mellitus with diabetic peripher*11/29/2021 Atherosclerosis of [place] artery of extremity w*11/29/2021 Malnutrition of moderate degree (HCC) [E44.0] 12/01/2021 Dermatitis associated with moisture [L30.8] 12/04/2021 Encounter Status:Closed by AUGUSTA MEDRANO on 02/19/22 [facility] Sonya 02-18-2022 CNPN Telephone (PODCCP) ALEX ALMONTE ([id number]) 1945 [facility] Date Time Provider Department 02/18/22 DEVON MOREIRA PODCCP During your visit today, we recorded the following information about you: Yumiko Denise 02/18/2022 3:16 PM Signed Reason for call: Mr. Almonte would like to request a sooner appointment with Dr. Peterson than 04/13/2022. Contact Name (if not the patient) Alex's nurse Home and cell number(Ask for Alex's nurse) [phone] Diagnosis 4 mo f/u wound check Best [...] by mouth daily with lunch. 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 Normal [facility] CNOVon 02-05-2022 CNOV Office Visit (TXCTGL ) SUZYALEX Love ([id number]) 1945 M TRN Date Time Provider Department 02/05/22 8:20 AM KIDNEY TXP CLINIC TXCTGL During your visit today, we recorded the following information about you: Temperature Pulse Blood pressure 96.7 degrees 79/minute 72/42 Asia Pike MD 02/05/2022 9:38 AM Signed [facility] Transplant Follow up Portions of this note [...] Indra scale at [facility]: 166.2 lbs per patient. Bed sore on coccyx causing discomfort. Being changed regularly at SNF- reported to be smaller around but still as deep. Patient not very up to date with medications. Patient brought paperwork from [employer] with all medications being received. Patient unsure if they have been drawing labs regularly. Last Tac from 01/19: 12.9 and K 5.9. In need of current labs. Lab orders will be sent with patient and follows as below: Kidney and Pancreas Transplant Standing Lab Orders [address] [facility] [address] [place], [place] [address] February 05, 2022 Alex Almonte 1945 [id number] STANDARD TESTING: Diagnosis Codes: Z94.0 Kidney Transplant [...] AT YOUR LABORATORY FACILITY AND FAX TO [phone]. PLEASE CALL [phone]. Provider: Dr. Pike Current Outpatient Medications Medication Sig insulin glargine (LANTUS SOLOSTAR, BASAGLAR KWIKPEN) 100 unit/mL (3 mL) Inject 17 Units subcutaneously once daily. sulfamethoxazole-trim ethoprim (SEPTRA) 400-80 mg per tablet Take by mouth. Take one (1) tablet --F tacrolimus IR (PROGRAF) 1 mg capsule Take [...] Take 237 (more content not included)... Normal [facility] PROTEIN CREATININE RATIOon 1 04-08-2021 Protein/Creatinine (U) [Mass ratio] 0.10 mg/mg <0.15 mg/mg [facility] PROTIMEon 02-05-2022 INR Coag (PPP) [Relative time] 2.90 {INR} Normal [facility] Comment on above: Performed By: #### P T ####[facility] [address] [place] [address]Dr. Farhat Leal INR GUIDELINES SEE BELOW Normal [facility] Comment on above: Result Comment: MALINA RED INR: 2.0 - 3.0 CONDITIONS NOT LISTED BELOW 2.5 - 3.5 FOR PROSTHETIC HEART VALVE REPLACEMENT 2.5 - 3.5 RECURRENT THROMBOSIS Performed By: #### P T ####[facility] [address] [place] [id number]. Farhat Leal PT Coag (PPP) [Time] 29.2 s Critically high 9.0-11.6 [facility] Comment on above: Performed By: #### P T ####[facility] [address] [place] [address]Dr. Farhat Leal Prot/Creat Uron 02-05-2022 Protein/Creatinine (U) [Mass ratio] 0.10 mg/mg Normal <0.15 [facility] Comment on above: Order Comment: Speci men Type: URINE SPECIMENOrdering Facility: [facility] Address: [address] [place] [address] Result Comment: Adul t Proteinuria Categories: <0.15 mg/mg is considered normal to mildly increased 0.15 - 0.50 mg/mg is considered moderately increased >0.50 mg/mg is considered severely increased KDIGO. (2013). KDIGO 2012 Clinical Practice Guideline for the Evaluation and Management of Chronic Kidney Disease. Official Journal of the International Society of Nephrology, 3(1), 1-150. Performed By: #### 2 890-2 ####[facility] LAB[facility] [id number] [place] [address] [place] Protein/Creatinine (U) [Mass ratio]on 02-05-2022 Creatinine (U) [Mass/Vol] 86.9 mg/dL 20.0 - 300.0 mg/dL [facility] Protein (U) [Mass/Vol] 9 mg/dL 0 - 20 mg/dL [facility] Creatinine (U) [Mass/Vol] 86.9 mg/dL Normal 20.0-300.0 [facility] Comment on above: Order Comment: Speci men Type: URINE SPECIMENOrdering Facility: [facility] Address: [address] Performed By: #### 2 890-2 ####[facility] LAB[facility] [id number] [place] [address] [place] Protein (U) [Mass/Vol] 9 mg/dL Normal 0-20 [facility] Comment on above: Order Comment: Speci men Type: URINE SPECIMENOrdering Facility: [facility] Address: [address] [place], [place] [id number] Performed By: #### 2 890-2 ####[facility] LAB[facility] [id number] [place] [address] [place] URINALYSIS, DIPSTICK ONLYon 02-05-2022 Bilirubin Ql (U) Negative Normal Negative [facility] Comment on above: Order Comment: Speci men Type: URINE SPECIMEN Ordering Facility[facility] Address: [address] [place], [place] [id number] Performed By: #### U A #### [facility] CLIA [id number] [facility] [place] [address] [place] Clarity (Unsp spec) Clear Normal Clear [facility] Comment on above: Order Comment: Speci men Type: URINE SPECIMEN Ordering [facility] Address: [address] Performed By: #### U A #### [facility] CLIA [id number] [address] [place] [address] [place] Color (U) Yellow Normal Yellow [facility] Comment on above: Order Comment: Speci men Type: URINE SPECIMEN Ordering [facility]: [facility] Address: [address] Performed By: #### U A #### [facility] CLIA [id number] [address] [place] [address] [place] Glucose Test strip (U) [Mass/Vol] 3+ Abnormal Trace, Negative [facility] Comment on above: Order Comment: Speci men Type: URINE SPECIMEN Ordering [facility] Address: [address] [place] [address] Performed By: #### U A #### [facility] CLIA [id number] [address] [place] [address] [place] Hemoglobin Ql (U) Negative Normal Negative, Trace [facility] Comment on above: Order Comment: Speci men Type: URINE SPECIMEN [facility]ing [facility] Address: [address] [place] [address] Performed By: #### U A #### [facility] CLIA [id number] [address] [place] [address] [place] Ketones Ql (U) Trace Normal Negative, Trace [facility] Comment on above: Order Comment: Speci men Type: URINE SPECIMEN Order[facility] Address: [address] [place] [address] Performed By: #### U A #### [facility] CLIA [id number] [address] [place] [address] [place] Leukocyte esterase Test strip Ql (U) Negative Normal Negative, 25 Loraine/mL [facility] Comment on above: Order Comment: Speci men Type: URINE SPECIMEN Order[facility] Address: [address] [place] [address] Performed By: #### U A #### [facility] CLIA [id number] [address] [place] [address] [place] Nitrite Ql (U) Negative Normal Negative [facility] Comment on above: Order Comment: Speci men Type: URINE SPECIMEN [facility] Address: [address] [place] [address] Performed By: #### U A #### [facility] CLIA [id number] [address] [place] [address] [place] pH (U) 5.5 [pH] Normal 5.0-8.0 [facility] Comment on above: Order Comment: Speci men Type: URINE SPECIMEN [facility] Address: [address] [place] [address] Performed By: #### U A #### [facility] CLIA [id number] [address] [place] [address] [place] Protein (U) [Mass/Vol] Negative Normal Trace , Negative [facility] Comment on above: Order Comment: Speci men Type: URINE SPECIMEN [facility] Address: [address] [place] [address] Performed By: #### U A #### [facility] CLIA [id number] [address] [place] [address] [place] Specific gravity (U) [Rel density] 1.014 Normal 1.005-1.030 [facility] Comment on above: Order Comment: Speci men Type: URINE SPECIMEN [facility] Address: [address] [place] [address] Performed By: #### U A #### [facility] CLIA [id number] [address] [place] [address] [place] Urobilinogen Ql (U) 1+ Abnormal Negative [facility] Comment on above: Order Comment: Speci men Type: URINE SPECIMEN [facility] Address: [address] [place] [address] Performed By: #### U A #### [facility] CLIA [id number] [address] [place] [address] [place] Bilirubin Ql (U) Negative Negative [facility] Clarity (Unsp spec) Clear Clear [place] [facility] Color (U) Yellow Yellow [facility] Glucose Test strip (U) [Mass/Vol] 3+ Abnormal Trace, Negative [facility] Hemoglobin Ql (U) Negative Negative, Trace [facility] Ketones Ql (U) Trace Negative, Trace [facility] Leukocyte esterase Test strip Ql (U) Negative Negative, 25 Loraine/mL [facility] Nitrite Ql (U) Negative Negative [facility] pH (U) 5.5 [pH] 5.0 - 8.0 [facility] Protein (U) [Mass/Vol] Negative Trace , Negative [facility] Specific gravity (U) [Rel density] 1.014 1.005 - 1.030 [facility] Urobilinogen Ql (U) 1+ Abnormal Negative [facility] FK506 (TACROLIMUS) WHOLE BLO ODon 01-29-2022 Tacrolimus (FK506), Blood 11.1 ng/mL Normal 2.0-20.0 [facility] Comment on above: Result Comment: Trou gh (immediately following transplant) 15.0 . Trough (steady state, 2 weeks or more after transplant): 3.0 - 8.0 . Performed by LC-MS/MS technology. Performed By: #### F K506T ####[facility] [address] [place], [place] [address]Dr. Farhat Leal PHOSPHORUSon 01-26-2022 Phosphate [Mass/Vol] 4.1 mg/dL Normal 2.6-4.7 [facility] Comment on above: Performed By: #### C CARA PHOS ####[facility] Omdozzoind[address] [place], [place] [address]DrSkylar Leal PROF 14(COMP METB)on 022 Albumin [Mass/Vol] 2.1 g/dL Critically low 3.4-5.0 [facility] Comment on above: Performed By: #### C CARA PHOS ####[facility] Hy[address] [place], [place] [address]Dr. Farhat Leal Albumin/Globulin [Mass ratio] 0.6 {ratio} Normal [facility] Comment on above: Performed By: #### C CARA PHOS ####[facility] X[address] [place], [place] [address]Dr. Farhat Leal ALP [Catalytic activity/Vol] 89 U/L Normal 46-116 [facility] Comment on above: Performed By: #### C CARA, PHOS ####[facility] [address] [place], [place] [address]Dr. Farhat Leal ALT [Catalytic activity/Vol] 27 U/L Normal 16-63 [facility] Comment on above: Performed By: #### C CARA, PHOS ####[facility] [address]fqewc[address] [place], [place] [address]Dr. Farhat Leal Anion gap [Moles/Vol] 12.3 mmol/L Normal [facility] Comment on above: Performed By: #### C CARA, PHOS ####[facility] Ttheurgtnq[address] [place], [place] [address]Dr. Farhat Leal AST [Catalytic activity/Vol] 53 U/L Critically high 15-37 [facility] Comment on above: Performed By: #### C CARA, PHOS ####[facility] Girimbxfry[address] [place], [place] [address]Dr. Farhat Leal Bilirubin [Mass/Vol] 0.6 mg/dL Normal 0.2-1.0 [facility] Comment on above: Performed By: #### C CARA, PHOS ####[facility] [address] [place], [place] [address]Dr. Farhat Leal Calcium [Mass/Vol] 8.0 mg/dL Critically low 8.5-10.1 [facility] Comment on above: Performed By: #### C CARA, PHOS ####[facility] Cdbb[address]ufpw[address] [place], [place] [address]Dr. Farhat Leal Chloride [Moles/Vol] 97 mmol/L Critically low 98-107 [facility] Comment on above: Performed By: #### C CARA, PHOS ####[facility] [address] [place], [place] [address]Dr. Farhat Leal CO2 [Moles/Vol] 26.6 mmol/L Normal 21.0-32.0 [facility] Comment on above: Performed By: #### C CARA, PHOS ####[facility] [address] [place] [address]Dr. Farhat Leal Creatinine [Mass/Vol] 1.03 mg/dL Normal 0.70-1.30 [facility] Comment on above: Performed By: #### C CARA, PHOS ####[facility] Tenxc[address] [place], [place] [address]Dr. Farhat Leal EGFR-AF BRITISH >60 Normal >=60 [facility] Comment on above: Performed By: #### C CARA, PHOS ####[facility] [address] [place], [place] [address]Dr. Farhat Leal EGFR-NON AF BRITISH >60 Normal >=60 [facility] Comment on above: Performed By: #### C CARA, PHOS ####[facility] Fl[address]izz[address] [place], [place] [address]Dr. Farhat Leal Globulin (S) [Mass/Vol] 3.7 g/dL Normal [facility] Comment on above: Performed By: #### C CARA, PHOS ####[facility] Eddxtvllnm[address] [place], [place] [address]Dr. Farhat Leal Glucose [Mass/Vol] 287 mg/dL Critically high 74-106 [facility] Comment on above: Performed By: #### C CARA, PHOS ####[facility] [address] [place], [place] [address]Dr. Farhat Leal Potassium [Moles/Vol] 3.9 mmol/L Normal 3.5-5.1 [facility] Comment on above: Performed By: #### C CARA, PHOS ####[facility] [address] [place], [place] [address]Dr. Farhat Leal Protein [Mass/Vol] 5.8 g/dL Critically low 6.4-8.2 [facility] Comment on above: Performed By: #### C CARA, PHOS ####[facility] [address] [place], [place] [address]Dr. Farhat Leal Sodium [Moles/Vol] 132 mmol/L Critically low 136-145 [facility] Comment on above: Performed By: #### C CARA, PHOS ####[facility] [address] [place] [id number]. Farhat Leal Urea nitrogen [Mass/Vol] 23.0 mg/dL Critically high 7.0-18.0 [facility] Comment on above: Performed By: #### C CARA, PHOS ####[facility] [address] [place] [id number]. Farhat Leal Urea nitrogen/Creatinine [Mass ratio] 22.3 mg/mg Normal [facility] Comment on above: Performed By: #### C CARA, PHOS ####[facility] [address] [place] [id number]. Farhat Leal FK506 (TACROLIMUS) WHOLE BLO ODon 01-21-2022 Tacrolimus (FK506), Blood 12.2 ng/mL Normal 2.0-20.0 [facility] Comment on above: Result Comment: Trou gh (immediately following transplant) 15.0 . Trough (steady state, 2 weeks or more after transplant): 3.0 - 8.0 . Performed by LC-MS/MS technology. Performed By: #### F K506T ####[facility] [address] [place], [place] [address]Dr. Farhat Leal ACID FAST SMEAR AND CXon Acid Fast Culture Negative Normal [facility] Comment on above: Result Comment: No a abdiel fast bacilli isolated after 6 weeks. Performed By: #### A FB ####[facility] [address] [place], [place] [address]Dr. Farhat Leal Acid Fast Smear Negative Normal [facility] Comment on above: Performed By: #### A FB ####[facility] [address] [place], [place] [id number]. Farhat Leal [employer] Specimen Processing Tissue Grinding Normal [facility] Comment on above: Performed By: #### A FB ####[facility] [address] [place], [place] [address]Dr. Farhat Hassan 01-20-2022 CNPN Telephone (DAVISBatool) ALEX ALMONTE ([id number]) 1945 M TRN Date Time Provider Department 01/20/22 VAN OLIVAREZ During your visit today, we recorded the following information about you: Van Olivarez APRN.CNP 01/20/2022 1:14 PM Signed Labs noted from yesterday. Pt is currently residing at [facility], I spoke with the Nurse, [...] by mouth daily with lunch. 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 Atherosclerosis of [place] artery of extremity w*11/29/2021 Malnutrition of moderate degree (HCC) [E44.0] 12/01/2021 Dermatitis associated with moisture [L30.8] 12/04/2021 Encounter Status:Closed by VAN OLIVAREZ on 01/20/22 Normal [facility] PROF 14(COMP METB)on 022 Albumin [Mass/Vol] 1.9 g/dL Critically low 3.4-5.0 [facility] Comment on above: Performed By: #### C MP ####[facility] [address] [place] [address]DrSkylar Leal Albumin/Globulin [Mass ratio] 0.5 {ratio} Normal [facility] Comment on above: Performed By: #### C MP ####[facility] [address] [place] [address]DrSkylar Leal ALP [Catalytic activity/Vol] 78 U/L Normal 46-116 [facility] Comment on above: Performed By: #### C MP ####[facility] [address] [place] [address]Dr. Farhat Leal ALT [Catalytic activity/Vol] 22 U/L Normal 16-63 [facility] Comment on above: Performed By: #### C MP ####[facility] [address] [place], [place] [address]Dr. Farhat Leal Anion gap [Moles/Vol] 8.0 mmol/L Normal [facility] Comment on above: Performed By: #### C MP ####[facility] [address] [place], [place] [address]Dr. Farhat eLal AST [Catalytic activity/Vol] 92 U/L Critically high 15-37 [facility] Comment on above: Performed By: #### C MP ####[facility] [address] [place], [place] [address]Dr. Farhat Leal Bilirubin [Mass/Vol] 0.7 mg/dL Normal 0.2-1.0 [facility] Comment on above: Performed By: #### C MP ####[facility] [address]xstr[address] [place], [place] [address]Dr. Farhat Leal Calcium [Mass/Vol] 7.8 mg/dL Critically low 8.5-10.1 [facility] Comment on above: Performed By: #### C MP ####[facility] [address] [place], [place] [address]Dr. Farhat Leal Chloride [Moles/Vol] 99 mmol/L Normal 98-107 [facility] Comment on above: Performed By: #### C MP ####[facility] Axtjwjtyih[address] [place], [place] [address]Dr. Farhat Elvis CO2 [Moles/Vol] 30.9 mmol/L Normal 21.0-32.0 [facility] Comment on above: Performed By: #### C MP ####[facility] Bettbudwbc[address] [place], [place] [address]Dr. Farhat Leal Creatinine [Mass/Vol] 0.95 mg/dL Normal 0.70-1.30 [facility] Comment on above: Performed By: #### C MP ####[facility] Gcegrbntfl[address] [place] [address]Tm. Farhat Leal EGFR-AF BRITISH >60 Normal >=60 [facility] Comment on above: Performed By: #### C MP ####[facility] N[address]arn[address] [place] [address]Dr. Farhat Leal EGFR-NON AF BRITISH >60 Normal >=60 [facility] Comment on above: Performed By: #### C MP ####[facility] Vsvgdjtttw0959[address] [place], [place] [address]Dr. Farhat Elvis Globulin (S) [Mass/Vol] 3.9 g/dL Normal [facility] Comment on above: Performed By: #### C MP ####[facility] Quggtubkeg4823[address] [place], [place] [address]Dr. Farhat Elvis Glucose [Mass/Vol] 124 mg/dL Critically high 74-106 T [facility] Comment on above: Performed By: #### C MP ####[facility] Snxfoegihp754[address] [place], [place] [address]Dr. Farhat Elvis Potassium [Moles/Vol] 5.9 mmol/L Critically high 3.5-5.1 [facility] Comment on above: Performed By: #### C MP ####[facility] Izsszzofad375[address] [place], [place] [address]Dr. Farhat Elvis Protein [Mass/Vol] 5.8 g/dL Critically low 6.4-8.2 Th [facility] Comment on above: Performed By: #### C MP ####[facility] Ofsklyrejk8257[address] [place], [place] [address]Dr. Farhat Elvis Sodium [Moles/Vol] 132 mmol/L Critically low 136-145 [facility] Comment on above: Performed By: #### C MP ####[facility] Moqvffmdhb7594[address] [place], [place] [address]Dr. Madelynlorri Elvis Urea nitrogen [Mass/Vol] 18.0 mg/dL Normal 7.0-18.0 [facility] Comment on above: Performed By: #### C MP ####[facility] Mhlpwpxfym1644[address] [place], [place] [address]Dr. Farhat Leal Urea nitrogen/Creatinine [Mass ratio] 18.9 mg/mg Normal [facility] Comment on above: Performed By: #### C MP ####[facility] Jyeegfgjoz6084[address] [place], [place] [address]Dr. Farhat Leal INR (POC)on 01-12-2022 INR Coag (PPP) [Relative time] 2.6 {INR} High 0.8 - 1.2 [facility] Internal Quality Check Acceptable Cl [facility] ACID FAST SMEAR AND CXon Acid Fast Culture Negative Normal [facility] Comment on above: Result Comment: No a abdiel fast bacilli isolated after 6 weeks. Performed By: #### A FB ####[facility] Xqaqlnxsnr8975[address] [place], [place] [address]Dr. Farhat [facility] Acid Fast Smear Negative Normal [facility] Comment on above: Performed By: #### A FB ####[facility] Ufamuxaugm5432[address] [place], [place] [address]Dr. Farhat [employer] Specimen Processing Direct Inoculation Normal [facility] Comment on above: Performed By: #### A FB ####[facility] Qmclaebyer655[address] [place], [place] [address]Dr. Farhat Leal ACID FAST SMEAR AND CXon Acid Fast Culture Negative Normal [facility] Comment on above: Result Comment: No a abdiel fast bacilli isolated after 6 weeks. Performed By: #### A FB ####[facility] Ayupfhkrrb296[address] [place], [place] [address]Dr. Farhat Leal Acid Fast Smear Negative Normal [facility] Comment on above: Performed By: #### A FB ####[facility] Zynjgbwyyp8437[address] [place], [place] [address]Dr. Farhat [employer] Specimen Processing Tissue Grinding Normal [facility] Comment on above: Performed By: #### A FB ####[facility] Ydcainrymp2912[address] [place], [place] [address]Dr. Farhat Leal FUNGAL CULTUREon 01-02-2022 Fungus (Mycology) Culture Final report Normal [facility] Comment on above: Performed By: #### C XFUN ####[facility] N[address]rf[address]qs[address] [place] [address]Dr. Farhat Leal Fungus Stain Final report Normal [facility] Comment on above: Performed By: #### C XFUN ####[facility] Mdvqhpaeyf0579[address] [place], [place] [address]Dr. Farhat Leal Result 1 Comment Normal [facility] Comment on above: Result Comment: ANNI/ Calcofluor preparation: no fungus observed. Performed By: #### C XFUN ####[facility] Abupxugvbv0084[address] [place], [place] [address]Dr. Farhat Leal Result Comment: No y east or mold isolated after 4 weeks. FK506 (TACROLIMUS) WHOLE BLO ODon 12-31-2021 Tacrolimus (FK506), Blood 7.7 ng/mL Normal 2.0-20.0 [facility] Comment on above: Result Comment: Trou gh (immediately following transplant) 15.0 . Trough (steady state, 2 weeks or more after transplant): 3.0 - 8.0 . Performed by LC-MS/MS technology. Performed By: #### F K506T ####[facility] Iyzpmiwkct13[address] [place], [place] [address]Dr. Farhat Leal HEMOGRAM AND PLATELon 2021 Hematocrit (Bld) [Volume fraction] 27.1 % Critically low 42.0-54.0 [facility] Comment on above: Performed By: #### H H ####[facility] Yaexhfthpi5633[address] [place], [place] [address]Dr. Farhat Leal Hemoglobin (Bld) [Mass/Vol] 8.7 g/dL Critically low 14.0-18.0 [facility] Comment on above: Performed By: #### H H ####[facility] Jhyxowfque3394[address] [place], [place] [address]Dr. Farhat Leal MCH (RBC) [Entitic mass] 30.3 pg Normal 25.9-34.0 [facility] Comment on above: Performed By: #### H H ####[facility] Brhkutteiq364[address] [place], [place] [address]DrSkylar Leal MCHC (RBC) [Mass/Vol] 32.1 g/dL Normal 29.9-35.2 [facility] Comment on above: Performed By: #### H H ####[facility] [address]joqllmft48[address] [place] [phone] Farhat Leal MCV (RBC) [Entitic vol] 94.4 fL Critically high 80.0-94.0 [facility] Comment on above: Performed By: #### H H ####[facility] [address]vy[address] [place] [address]DrSkylar Farhat Elvis PLT 355 103/ul Normal 150-450 [facility] Comment on above: Performed By: #### H H ####[facility] Posqmzovar4[address] [place] [phone] Leal RBC 2.87 106/ul Critically low 4.70-6.10 [facility] Comment on above: Performed By: #### H H ####[facility] B[address]pcssgrm[address] [place] [address]DrSkylar Leal WBC 6.0 103/ul Normal 4.0-11.0 [facility] Comment on above: Performed By: #### H H ####[facility] Syujozgytz14[address] [place] [phone] Leal PHOSPHORUSon 12-29-2021 Phosphate [Mass/Vol] 2.5 mg/dL Critically low 2.6-4.7 [facility] Comment on above: Performed By: #### P HOS, CMP ####[facility] Xkyfuyhvtq2783 [place] [phone] Leal PROF 14(COMP METB)on 022 Albumin [Mass/Vol] 1.7 g/dL Critically low 3.4-5.0 [facility] Comment on above: Performed By: #### P HOS, CMP ####[facility] Httroenggn10[address] [place] [phone] Leal Albumin/Globulin [Mass ratio] 0.5 {ratio} Normal [facility] Comment on above: Performed By: #### P HOS, CMP ####[facility] Xsnpnhcyok6215 [place] [phone] Leal ALP [Catalytic activity/Vol] 78 U/L Normal 46-116 [facility] Comment on above: Performed By: #### P HOS, CMP ####[facility] Iqhrsmulja5112[address] [place], [place] [address]Dr. Farhat Leal ALT [Catalytic activity/Vol] 12 U/L Critically low 16-63 [facility] Comment on above: Performed By: #### P HOS, CMP ####[facility] Xfksxbpsbu9555[address] [place], [place] [address]Dr. Farhat Leal Anion gap [Moles/Vol] 5.1 mmol/L Normal [facility] Comment on above: Performed By: #### P HOS, CMP ####[facility] Uocafxdsrc378[address] [place], [place] [address]Dr. Farhat Leal AST [Catalytic activity/Vol] 22 U/L Normal 15-37 [facility] Comment on above: Performed By: #### P HOS, CMP ####[facility] Ejpxhtqqus[address] [place], [place] [address]Dr. Farhat Leal Bilirubin [Mass/Vol] 0.6 mg/dL Normal 0.2-1.0 [facility] Comment on above: Performed By: #### P HOS, CMP ####[facility] Hfkdgsybtb[address] [place], [place] [address]Dr. Farhat Leal Calcium [Mass/Vol] 8.1 mg/dL Critically low 8.5-10.1 [facility] Comment on above: Performed By: #### P HOS, CMP ####[facility] Cikfnqjsud035[address] [place], [place] [address]Dr. Farhat Leal Chloride [Moles/Vol] 100 mmol/L Normal 98-107 [facility] Comment on above: Performed By: #### P HOS, CMP ####[facility] Qykbpgprhf7717[address] [place], [place] [address]Dr. Farhat Leal CO2 [Moles/Vol] 34.2 mmol/L Critically high 21.0-32.0 [facility] Comment on above: Performed By: #### P HOS, CMP ####[facility] Qwfilzktzk32[address] [place] [address]Dr. Farhat Leal Creatinine [Mass/Vol] 0.92 mg/dL Normal 0.70-1.30 [facility] Comment on above: Performed By: #### P HOS, CMP ####[facility] Mllnrthabw5023[address] [place], [place] [address]Dr. Farhat Leal EGFR-AF BRITISH >60 Normal >=60 [facility] Comment on above: Performed By: #### P HOS, CMP ####[facility] Qpwvbstrid901[address] [place], [place] [address]Dr. Farhat Leal EGFR-NON AF BRITISH >60 Normal >=60 [facility] Comment on above: Performed By: #### P HOS, CMP ####[facility] Zrcdkorumu0780[address] [place], [place] [address]Dr. Farhat Leal Globulin (S) [Mass/Vol] 3.3 g/dL Normal [facility] Comment on above: Performed By: #### P HOS, CMP ####[facility] Ayqhscekth0389[address] [place], [place] [address]Dr. Farhat Leal Glucose [Mass/Vol] 116 mg/dL Critically high 74-106 [facility] Comment on above: Performed By: #### P HOS, CMP ####[facility] Bwmnzymkhl076[address] [place], [place] [address]Dr. Farhat Leal Potassium [Moles/Vol] 3.3 mmol/L Critically low 3.5-5.1 [facility] Comment on above: Performed By: #### P HOS, CMP ####[facility] Ziobdrywjh8445[address] [place], [place] [address]Dr. Farhat Leal Protein [Mass/Vol] 5.0 g/dL Critically low 6.4-8.2 [facility] Comment on above: Performed By: #### P HOS, CMP ####[facility] Mdwzincxtl7688[address] [place], [place] [address]Dr. Farhat Leal Sodium [Moles/Vol] 136 mmol/L Normal 136-[address] [facility] Comment on above: Performed By: #### P HOS, CMP ####[facility] Gxzgvieojz514[address] [place], [place] [address]Dr. Farhat Leal Urea nitrogen [Mass/Vol] 14.0 mg/dL Normal 7.0-18.0 [facility] Comment on above: Performed By: #### P HOS, CMP ####[facility] Bzwpfipyix7601[address] [place], [place] [address]Dr. Farhat Leal Urea nitrogen/Creatinine [Mass ratio] 15.2 mg/mg Normal [facility] Comment on above: Performed By: #### P HOS, CMP ####[facility] Uhtrpbldzq3713[address] [place], [place] [address]Dr. Farhat Leal PROTIMEon 12-29-2021 INR Coag (PPP) [Relative time] 1.26 {INR} Normal [facility] Comment on above: Performed By: #### P T ####[facility] Nnprzbqoxz32[address] [place], [place] [address]Dr. Farhat Leal INR GUIDELINES SEE BELOW Normal [facility] Comment on above: Result Comment: MALINA RED INR: 2.0 - 3.0 CONDITIONS NOT LISTED BELOW 2.5 - 3.5 FOR PROSTHETIC HEART VALVE REPLACEMENT 2.5 - 3.5 RECURRENT THROMBOSIS Performed By: #### P T ####[facility] Mcmwpjvwin[address] [place], [place] [address]Dr. Farhat Leal PT Coag (PPP) [Time] 13.4 s Critically high 9.0-11.6 [facility] Comment on above: Performed By: #### P T ####[facility] Tyipsyuttb4427[address] [place], [place] [address]Dr. Farhat Leal XR MODIFIED BARIUM SWALLOWon 12-25-2021 XR MODIFIED BARIUM SWALLOW Normal [facility] FUNGAL CULTUREon 12-24-2021 Fungus (Mycology) Culture Final report Normal [facility] Comment on above: Performed By: #### C XFUN ####[facility] Kwtsypcbjr20[address] [place], [place] [address]Dr. Farhat Leal Fungus Stain Final report Normal [facility] Comment on above: Performed By: #### C XFUN ####[facility] Kfsonibknq[address] [place], [place] [address]DrSkylar Leal Result 1 Comment Normal [facility] Comment on above: Result Comment: ANNI/ Calcofluor preparation: no fungus observed. Performed By: #### C XFUN ####[facility] Sbzigsfmsh0920[address] [place], [place] [address]Dr. Farhat Leal Result Comment: No y east or mold isolated after 4 weeks. VANCOMYCIN TROUGHon 12-21-19 VANCOMYCIN TROUGH 14.4 ug/ml Normal 5.0-20.0 [facility] Comment on above: Performed By: #### V ANCT ####[facility] Vfspzslnlm30[address] [place], [place] [address]Dr. Farhat Leal CBC AUTO DIFFon 12-14-2021 BASO # 0.0 103/ul Normal 0.0-0.1 [facility] Comment on above: Performed By: #### C BC ####[facility] Tfcrupgunp9[address] [place], [place] [address]Dr. Farhat Leal Basophils/100 WBC (Bld) 0.2 % Normal 0.2-2.0 [facility] Comment on above: Performed By: #### C BC ####[facility] Xyksjflvmr94[address] [place], [place] [address]DrSkylar Leal EO # 0.2 103/ul Normal 0.0-0.7 [facility] Comment on above: Performed By: #### C BC ####[facility] Cnvxxahanp6940[address] [place], [place] [address]Dr. Farhat Leal Eosinophils/100 WBC (Bld) 2.1 % Normal 0.9-7.0 [facility] Comment on above: Performed By: #### C BC ####[facility] Jwzdzttpqc[address] [place], [place] [address]Dr. Farhat Leal Erythrocyte distribution width (RBC) [Ratio] 18.2 % Critically high 11.0-15.0 [facility] Comment on above: Performed By: #### C BC ####[facility] Wkawejlkng8[address] [place], [place] [address]Dr. Farhat Leal Hematocrit (Bld) [Volume fraction] 25.8 % Critically low 42.0-54.0 [facility] Comment on above: Performed By: #### C BC ####[facility] Clwxobpslh[address] [place] [phone]. Farhat Leal Hemoglobin (Bld) [Mass/Vol] 8.0 g/dL Critically low 14.0-18.0 [facility] Comment on above: Performed By: #### C BC ####[facility] [address]cgvumc[address] [place] [address]Dr. Farhat Leal IG # 0.08 10e3/ul Critically high 0.00-0.03 [facility] Comment on above: Performed By: #### C BC ####[facility] Yxsbqwnhim[address] [place] [address]Dr. Farhat Leal IG % 0.7 % Critically high 0.0-0.5 [facility] Comment on above: Performed By: #### C BC ####[facility] Tltjmxtags[address] [place] [address]Dr. Farhat Leal LYMPH # 0.9 103/ul Critically low 1.2-3.8 [facility] Comment on above: Performed By: #### C BC ####[facility] Dvdqhafruk[address] [place] [address]Dr. Farhat Leal Lymphocytes/100 WBC (Bld) 8.7 % Critically low 20.5-60.0 [facility] Comment on above: Performed By: #### C BC ####[facility] K[address]ddcditz[address] [place] [address]Dr. Farhat Leal MANUAL DIFF REQ NO Normal [facility] Comment on above: Performed By: #### C BC ####[facility] Rwvobzxuyv6[address] [place] [phone]. Farhat Leal MCH (RBC) [Entitic mass] 30.0 pg Normal 25.9-34.0 [facility] Comment on above: Performed By: #### C BC ####[facility] Ajblaszcue[address] [place] [address]Dr. Farhat Leal MCHC (RBC) [Mass/Vol] 31.0 g/dL Normal 29.9-35.2 [facility] Comment on above: Performed By: #### C BC ####[facility] Bxaokaptum[address] [place] [phone]. Farhat Leal MCV (RBC) [Entitic vol] 96.6 fL Critically high 80.0-94.0 [facility] Comment on above: Performed By: #### C BC ####[facility] Sgndcsncnx[address] [place] [phone]. Farhat Leal MONO # 0.7 103/ul Normal 0.3-0.8 [facility] Comment on above: Performed By: #### C BC ####[facility] Doisioasuz[address] [place] [phone]. Farhat Leal Monocytes/100 WBC (Bld) 6.7 % Normal 1.7-12.0 [facility] Comment on above: Performed By: #### C BC ####[facility] Jolhbjejao[address] [place], [place] [address]Dr. Farhat Leal NEUT # 8.8 103/ul Critically high 1.4-6.5 [facility] Comment on above: Performed By: #### C BC ####[facility] Usek[address]mt[address] [place], [place] [id number]. Farhat Leal Neutrophils/100 WBC (Bld) 81.6 % Critically high 43.0-75.0 [facility] Comment on above: Performed By: #### C BC ####[facility] Jnukdowvqm[address] [place] [phone]. Farhat Elvis Platelet mean volume (Bld) [Entitic vol] 10.5 fL Normal 9.5-13.5 [facility] Comment on above: Performed By: #### C BC ####[facility] W[address]fjvkw[address]f25[address] [place] [phone]. Farhat Elvis PLT 285 103/ul Normal 150-450 [facility] Comment on above: Performed By: #### C BC ####[facility] Ybzwwiiygu30[address] [place] [phone]. Farhat Leal RBC 2.67 106/ul Critically low 4.70-6.10 [facility] Comment on above: Performed By: #### C BC ####[facility] Fmhgcbotbt43[address] [place] [address]Dr. Farhat Leal WBC 10.7 103/ul Normal 4.0-11.0 [facility] Comment on above: Performed By: #### C BC ####[facility] Llejmpmxwf[address] [place] [address]Dr. Farhat Leal PROF CHEM 8 (BAS METB)on Anion gap [Moles/Vol] 12.4 mmol/L Normal [facility] Comment on above: Performed By: #### B MP ####[facility] Mzuxsgkmbh30[address] [place] [address]Dr. Farhat Leal Calcium [Mass/Vol] 7.8 mg/dL Critically low 8.5-10.1 [facility] Comment on above: Performed By: #### B MP ####[facility] Gcsukhrear[address] [place], [place] [address]Dr. Farhat Leal Chloride [Moles/Vol] 102 mmol/L Normal 98-107 [facility] Comment on above: Performed By: #### B MP ####[facility] Bhpqbazsxy0439[address] [place], [place] [address]Dr. Farhat Leal CO2 [Moles/Vol] 28.1 mmol/L Normal 21.0-32.0 [facility] Comment on above: Performed By: #### B MP ####[facility] Pfnvzhcfhh[address] [place], [place] [address]Dr. Farhat Leal Creatinine [Mass/Vol] 1.24 mg/dL Normal 0.70-1.30 [facility] Comment on above: Performed By: #### B MP ####[facility] Zhwkesmygw8[address] [place], [place] [address]Dr. Farhat Leal EGFR-AF BRITISH >60 Normal >=60 [facility] Comment on above: Performed By: #### B MP ####[facility] Daxiufhbua[address] [place], [place] [address]Dr. Farhat Leal EGFR-NON AF BRITISH 57 mL/min/1.73m2 Critically low >=60 [facility] Comment on above: Performed By: #### B MP ####[facility] Rkihfndtge90[address] [place] [address]Dr. Madelynlorri Elvis Glucose [Mass/Vol] 296 mg/dL Critically high 74-106 [facility] Comment on above: Performed By: #### B MP ####[facility] Pmlphamaum37[address] [place] [address]Dr. Farhat Leal Potassium [Moles/Vol] 3.5 mmol/L Normal 3.5-5.1 [facility] Comment on above: Performed By: #### B MP ####[facility] Eavdaqkiol75[address] [place] [address]Dr. Farhat Leal Sodium [Moles/Vol] 139 mmol/L Normal 136-[address] [facility] Comment on above: Performed By: #### B MP ####[facility] Kekemvkjar[address] [place], [place] [address]Dr. Farhat Leal Urea nitrogen [Mass/Vol] 27.0 mg/dL Critically high 7.0-18.0 [facility] Comment on above: Performed By: #### B MP ####[facility] Gkjddetzrd65[address] [place], [place] [address]Dr. Farhat Leal Urea nitrogen/Creatinine [Mass ratio] 21.8 mg/mg Normal [facility] Comment on above: Performed By: #### B MP ####[facility] V[address]htrnhcj[address] [place], [place] [address]Dr. Farhat Leal PROTIMEon 12-14-2021 INR Coag (PPP) [Relative time] 3.36 {INR} Normal [facility] Comment on above: Performed By: #### P T ####[facility] Tqyqlpebom[address] [place], [place] [address]Dr. Farhat Leal INR GUIDELINES SEE BELOW Normal [facility] Comment on above: Result Comment: MALINA RED INR: 2.0 - 3.0 CONDITIONS NOT LISTED BELOW 2.5 - 3.5 FOR PROSTHETIC HEART VALVE REPLACEMENT 2.5 - 3.5 RECURRENT THROMBOSIS Performed By: #### P T ####[facility] [address]mme[address]awfvc1106 [place], [place] [address]Kw. Farhat Elvis PT Coag (PPP) [Time] 33.5 s Critically high 9.0-11.6 [facility] Comment on above: Performed By: #### P T ####[facility] Tfsbbrvyek[address] [place] [address]Dr. Farhat Leal XR CHEST 1 Von 12-14-2021 XR CHEST 1 V Normal [facility] No Panel Informationon 12-01 BLANK _ [facility] Implant Date 04/22/2012 [facility] CHECKon AMS Duration (ms) 5 of 8 [facility] AMS Fallback Rate (bpm) DDIR [facility] AV Delay Adaptive Paced Minimum (ms) 300 ms [facility] AV Delay Adaptive Rate Maximum (bpm) 130 {beats}/min [facility] AV Delay Adaptive Rate Minimum (bpm) 70 {beats}/min [facility] AV Delay Adaptive Sensed Minimum (ms) 300 ms [facility] AV Delay Paced (ms) 300 ms [facility] AV Delay Sensed (ms) 300 ms [facility] Jaciel LV Pacing Polarity Unknown [facility] Jaciel LV Sensing Polarity Unknown [facility] [facility]iel RA Pacing Amplitude (volts) 2.4 V [facility] Jaciel RA Pacing Polarity BI [facility] Jaciel RA Pacing Pulse Width (ms) 0.4 ms [facility] Jaciel RA Sensing Amplitude (mvolts) AUTO [facility] Jaciel RA Sensing Blanking Period (ms) 56 ms [facility] Jaciel RA Sensing Polarity BI [facility] Jaciel RA Sensing Refractory Period (ms) AUTO [facility] Jaciel RV Pacing Amplitude (volts) 3.4 V [facility] Jaciel RV Pacing Polarity BI [facility] Jaciel RV Pacing Pulse Width (ms) 0.4 ms [facility] Jaciel RV Sensing Amplitude (mvolts) AUTO [facility] Jaciel RV Sensing Blanking Period (ms) 30 ms [facility] Jaciel RV Sensing Polarity BI [facility] Jaciel RV Sensing Refractory Period (ms) 250 ms [facility] Hysteresis Rate (bpm) 60 {beats}/min [facility] Lead1 Mfg [employer] [facility] Lead2 Mfg [employer] [facility] Location RA [facility] Location RV [facility] Lower Rate (bpm) 60 {beats}/min [facility] Max Sensor Rate (bmp) 130 {beats}/min [facility] Model [id number] Monika cortes [facility] Model [id number] [facility] Model 719007 [facility] Pacemaker Dependent? NO [facility] PM-Device Mfg BIO [facility] PM-PMT Intervention ON [facility] PM-PVC Intervention ON [facility] PM-Rate Modulation Acceleration Reaction 4 s [facility] PM-Rate Modulation Deceleration 0.5 m [facility] PM-Rate Modulation [place] 23 [facility] PM-Rate Modulation Threshold Medium [facility] RA Bipolar Impedance ohms 448 ohm [facility] Rhythm AF with controlled ventricular rate. [facility] RV Bipolar Impedance ohms 390 ohm [facility] Serial Number [id number] [facility] Serial Number [id number] [facility] Serial Number [id number] [facility] Thresh RA Sensing Amplitude (mvolts) 2.4 mV [facility] Thresh RV Capture Amplitude (volts) 1.8 V [facility] Thresh RV Capture Duration (ms) 0.4 ms [facility] Thresh RV Sensing Amplitude (mvolts) 2.4 mV [facility] Tracking Rate (bpm) 160 {beats}/min [facility] BNPon 11-28-2021 Natriuretic peptide B (Bld) [Mass/Vol] 45739.0 pg/mL Critically high <=1,800.0 [facility] Comment on above: Performed By: #### C MP, BNP, CRP ####[facility] [address]qsv[address] [place], [place] [address]Dr. Farhat Leal CBC AUTO DIFFon 11-28-2021 BASO # 0.0 103/ul Normal 0.0-0.1 [facility] Comment on above: Performed By: #### C BC ####[facility] [address] [place] [address]Dr. Farhat Leal Basophils/100 WBC (Bld) 0.3 % Normal 0.2-2.0 [facility] Comment on above: Performed By: #### C BC ####[facility] [address] [place], [place] [address]Dr. Farhat Leal EO # 0.1 103/ul Normal 0.0-0.7 [facility] Comment on above: Performed By: #### C BC ####[facility] To[address]ou[address]yl[address] [place] [id number]. Farhat Leal Eosinophils/100 WBC (Bld) 1.0 % Normal 0.9-7.0 [facility] Comment on above: Performed By: #### C BC ####[facility] Hpppdnmosx39[address] [place] [phone]. Farhat Leal Erythrocyte distribution width (RBC) [Ratio] 14.0 % Normal 11.0-15.0 [facility] Comment on above: Performed By: #### C BC ####[facility] Trzpt[address]urf67[address] [place] [phone]. Farhat Leal Hematocrit (Bld) [Volume fraction] 27.6 % Critically low 42.0-54.0 [facility] Comment on above: Performed By: #### C BC ####[facility] Tdupfqcqmi[address] [place] [address]Dr. Farhat Leal Hemoglobin (Bld) [Mass/Vol] 9.0 g/dL Critically low 14.0-18.0 [facility] Comment on above: Performed By: #### C BC ####[facility] I[address] [place], [place] [address]Dr. Farhat Leal IG # 0.12 10e3/ul Critically high 0.00-0.03 [facility] Comment on above: Performed By: #### C BC ####[facility] P[address] [place], [place] [address]Dr. Farhat Leal IG % 1.0 % Critically high 0.0-0.5 [facility] Comment on above: Performed By: #### C BC ####[facility] [address]zqvjlppya[address] [place] [address]Dr. Farhat Leal LYMPH # 1.2 103/ul Normal 1.2-3.8 [facility] Comment on above: Performed By: #### C BC ####[facility] Ngkcsiucgt7[address] [place], [place] [address]Dr. Farhat Leal Lymphocytes/100 WBC (Bld) 9.9 % Critically low 20.5-60.0 [facility] Comment on above: Performed By: #### C BC ####[facility] Xvcueqehlu[address] [place] [phone]. Farhat Leal MANUAL DIFF REQ NO Normal [facility] Comment on above: Performed By: #### C BC ####[facility] Snqhnjneha[address] [place] [phone]. Farhat Leal MCH (RBC) [Entitic mass] 30.0 pg Normal 25.9-34.0 [facility] Comment on above: Performed By: #### C BC ####[facility] Fjhikvglbd1051 [place] [phone]. Farhat Leal MCHC (RBC) [Mass/Vol] 32.6 g/dL Normal 29.9-35.2 [facility] Comment on above: Performed By: #### C BC ####[facility] T[address]funusrh[address] [place], [place] [address]Dr. Farhat Leal MCV (RBC) [Entitic vol] 92.0 fL Normal 80.0-94.0 [facility] Comment on above: Performed By: #### C BC ####[facility] Bh[address]ribnbb[address] [place], [place] [address]Dr. Farhat Leal MONO # 1.1 103/ul Critically high 0.3-0.8 [facility] Comment on above: Performed By: #### C BC ####[facility] L[address]zs[address] [place], [place] [address]Dr. Farhat Leal Monocytes/100 WBC (Bld) 9.3 % Normal 1.7-12.0 [facility] Comment on above: Performed By: #### C BC ####[facility] [address]axwtdeu[address] [place] [address]Dr. Farhat Leal NEUT # 9.3 103/ul Critically high 1.4-6.5 [facility] Comment on above: Performed By: #### C BC ####[facility] [address] [place], [place] [id number]. Farhat Leal Neutrophils/100 WBC (Bld) 78.5 % Critically high 43.0-75.0 [facility] Comment on above: Performed By: #### C BC ####[facility] Ggnjyoqhtn5[address] [place] [phone]. Farhat Leal Platelet mean volume (Bld) [Entitic vol] 9.6 fL Normal 9.5-13.5 [facility] Comment on above: Performed By: #### C BC ####[facility] [address]qignipusf[address] [place] [phone]. Farhat Leal PLT 357 103/ul Normal 150-450 [facility] Comment on above: Performed By: #### C BC ####[facility] Inmqdxmttx9527 [place] [phone]. Madelynlorri Elvis RBC 3.00 106/ul Critically low 4.70-6.10 [facility] Comment on above: Performed By: #### C BC ####[facility] L[address]wed[address]reda[address] [place] [phone]. Farhat Leal WBC 11.8 103/ul Critically high 4.0-11.0 [facility] Comment on above: Performed By: #### C BC ####[facility] Osaiqegqyx224[address] [place] [phone]. Farhat Leal CRPon 11-28-2021 CRP 20.9 mg/dL Critically high <=1.0 [facility] Comment on above: Performed By: #### C MP, BNP, CRP ####[facility] Auupjvzkgq[address] [place] [phone]. Madelynlorri Elvis CULTURE OTHERon 11-28-2021 CULTURE OTHER Normal [facility] Comment on above: Performed By: #### O THCX ####[facility] Elpdcgfkop[address] [place] [phone]. Farhat Leal CULTURE OTHER Normal [facility] Comment on above: Performed By: #### O THCX ####[facility] Ovzhxnotlw33[address] [place] [phone] Leal PROF 14(COMP METB)on 022 Albumin [Mass/Vol] 1.4 g/dL Critically low 3.4-5.0 [facility] Comment on above: Performed By: #### C MP, BNP, CRP ####[facility] Hovhzzpebv[address] [place] [address]Dr. Farhat Elvis Albumin/Globulin [Mass ratio] 0.4 {ratio} Normal [facility] Comment on above: Performed By: #### C MP, BNP, CRP ####[facility] Awyfjbhsdi[address] [place] [address]Dr. Farhat Elvis ALP [Catalytic activity/Vol] 82 U/L Normal 46-116 [facility] Comment on above: Performed By: #### C MP, BNP, CRP ####[facility] Mqkchnltrd3[address] [place] [address]Dr. Farhat Leal ALT [Catalytic activity/Vol] 20 U/L Normal 16-63 [facility] Comment on above: Performed By: #### C MP, BNP, CRP ####[facility] Qpybwnbtjz1833 [place] [address]Dr. Farhat Leal Anion gap [Moles/Vol] 13.0 mmol/L Normal [facility] Comment on above: Performed By: #### C MP, BNP, CRP ####[facility] [address]rg[address] [place], [place] [address]Dr. Farhat Leal AST [Catalytic activity/Vol] 33 U/L Normal 15-37 [facility] Comment on above: Performed By: #### C MP, BNP, CRP ####[facility] Jiodgtyrgs37[address] [place] [address]Dr. Farhat Leal Bilirubin [Mass/Vol] 0.7 mg/dL Normal 0.2-1.0 [facility] Comment on above: Performed By: #### C MP, BNP, CRP ####[facility] Oicowoedml9805 [place] [address]Dr. Farhat Leal Calcium [Mass/Vol] 8.4 mg/dL Critically low 8.5-10.1 [facility] Comment on above: Performed By: #### C MP, BNP, CRP ####[facility] Pibqdcdzci7060 [place] [address]Dr. Farhat Leal Chloride [Moles/Vol] 100 mmol/L Normal 98-107 [facility] Comment on above: Performed By: #### C MP, BNP, CRP ####[facility] Cdpncryimv2259 [place] [address]Dr. Farhat Leal CO2 [Moles/Vol] 23.7 mmol/L Normal 21.0-32.0 [facility] Comment on above: Performed By: #### C MP, BNP, CRP ####[facility] A[address] [place], [place] [address]Dr. Farhat Leal Creatinine [Mass/Vol] 1.70 mg/dL Critically high 0.70-1.30 [facility] Comment on above: Performed By: #### C MP, BNP, CRP ####[facility] Z[address] [place], [place] [address]Dr. Farhat Leal EGFR-AF BRITISH 48 mL/min/1.73m2 Critically low >=60 [facility] Comment on above: Performed By: #### C MP, BNP, CRP ####[facility] [address]xt[address]rks[address] [place], [place] [address]Dr. Farhat Leal EGFR-NON AF BRITISH 39 mL/min/1.73m2 Critically low >=60 [facility] Comment on above: Performed By: #### C MP, BNP, CRP ####[facility] Oiinatkkml1604 [place] [address]Dr. Farhat Leal Globulin (S) [Mass/Vol] 3.6 g/dL Normal [facility] Comment on above: Performed By: #### C MP, BNP, CRP ####[facility] Tqujmdmwza7393 [place] [address]Dr. Farhat Leal Glucose [Mass/Vol] 232 mg/dL Critically high 74-106 [facility] Comment on above: Performed By: #### C MP, BNP, CRP ####[facility] Jntdvkjmju0196 [place] [address]Dr. Farhat Leal Potassium [Moles/Vol] 3.7 mmol/L Normal 3.5-5.1 [facility] Comment on above: Performed By: #### C MP, BNP, CRP ####[facility] Fsfhrjzkyb3392 [place] [phone]. Farhat Leal Protein [Mass/Vol] 5.0 g/dL Critically low 6.4-8.2 [facility] Comment on above: Performed By: #### C MP, BNP, CRP ####[facility] Iytwrkgltr8257 [place] [address]Dr. Farhat Leal Sodium [Moles/Vol] 133 mmol/L Critically low 136-145 [facility] Comment on above: Performed By: #### C MP, BNP, CRP ####[facility] Elzvmzyyhe2191 [place] [address]Dr. Farhat Leal Urea nitrogen [Mass/Vol] 52.0 mg/dL Critically high 7.0-18.0 [facility] Comment on above: Performed By: #### C MP, BNP, CRP ####[facility] Nnfwhfepkc1870 [place] [address]Dr. Farhat Leal Urea nitrogen/Creatinine [Mass ratio] 30.6 mg/mg Normal [facility] Comment on above: Performed By: #### C MP, BNP, CRP ####[facility] Zxlhfuqgyy9801 [place] [address]Dr. Farhat Leal PROTIMEon 11-28-2021 INR Coag (PPP) [Relative time] 1.29 {INR} Normal [facility] Comment on above: Performed By: #### P T ####[facility] Gqxgppxdbt12[address] [place] [address]Dr. Farhat Leal INR GUIDELINES SEE BELOW Normal [facility] Comment on above: Result Comment: MALINA RED INR: 2.0 - 3.0 CONDITIONS NOT LISTED BELOW 2.5 - 3.5 FOR PROSTHETIC HEART VALVE REPLACEMENT 2.5 - 3.5 RECURRENT THROMBOSIS Performed By: #### P T ####[facility] Xhp[address]rotce[address] [place], [place] [address]Dr. Farhat Leal PT Coag (PPP) [Time] 13.7 s Critically high 9.0-11.6 [facility] Comment on above: Performed By: #### P T ####[facility] Nbfsdogxhd2152 [place] [address]Dr. Farhat Leal SED RATE WESTERGRENon 2021 SED RATE 77 mm/hr Critically high <=20 [facility] Comment on above: Performed By: #### S EDR ####[facility] Eyrwkcozox[address] [place], [place] [address]Dr. Farhat Leal XR CHEST 2 Von 11-28-2021 XR CHEST 2 V Normal [facility] BNPon 11-27-2021 Natriuretic peptide B (Bld) [Mass/Vol] 81864.0 pg/mL Critically high <=1,800.0 [facility] Comment on above: Performed By: #### B FOREIGN DIPLOMAT, CMP, CRP ####[facility] Jlkaymgdaf[address] [place], [place] [address]Dr. Farhat Leal CBC AUTO DIFFon 11-27-2021 BASO # 0.0 103/ul Normal 0.0-0.1 [facility] Comment on above: Performed By: #### C BC ####[facility] [address]vwdqh[address] [place], [place] [address]Dr. Farhat Leal Basophils/100 WBC (Bld) 0.2 % Normal 0.2-2.0 [facility] Comment on above: Performed By: #### C BC ####[facility] Rrtgpaussz[address] [place], [place] [address]Dr. Farhat Leal EO # 0.2 103/ul Normal 0.0-0.7 [facility] Comment on above: Performed By: #### C BC ####[facility] E[address]uewiedj[address] [place], [place] [address]Dr. Farhat Leal Eosinophils/100 WBC (Bld) 1.9 % Normal 0.9-7.0 [facility] Comment on above: Performed By: #### C BC ####[facility] J[address]jflwzifk[address] [place], [place] [address]Dr. Farhat Leal Erythrocyte distribution width (RBC) [Ratio] 13.9 % Normal 11.0-15.0 [facility] Comment on above: Performed By: #### C BC ####[facility] Ouyboyvira[address] [place] [address]Dr. Farhat Leal Hematocrit (Bld) [Volume fraction] 28.7 % Critically low 42.0-54.0 [facility] Comment on above: Performed By: #### C BC ####[facility] Pdxubdgauo3622 [place] [address]Dr. Farhat Leal Hemoglobin (Bld) [Mass/Vol] 9.3 g/dL Critically low 14.0-18.0 [facility] Comment on above: Performed By: #### C BC ####[facility] H[address]az[address]zzlo[address] [place], [place] [address]Dr. Farhat Leal IG # 0.14 10e3/ul Critically high 0.00-0.03 [facility] Comment on above: Performed By: #### C BC ####[facility] Hzemdbccxr[address] [place], [place] [address]Dr. Farhat Leal IG % 1.2 % Critically high 0.0-0.5 [facility] Comment on above: Performed By: #### C BC ####[facility] [address] [place], [place] [address]Dr. Farhat Leal LYMPH # 1.1 103/ul Critically low 1.2-3.8 [facility] Comment on above: Performed By: #### C BC ####[facility] Jybvjqnixx4076 [place] [address]Dr. Farhat Leal Lymphocytes/100 WBC (Bld) 9.4 % Critically low 20.5-60.0 [facility] Comment on above: Performed By: #### C BC ####[facility] Hedugsrsvo2717 [place] [address]Dr. Farhat Leal MANUAL DIFF REQ NO Normal [facility] Comment on above: Performed By: #### C BC ####[facility] X[address]fnqxzun[address] [place], [place] [address]Dr. Farhat Leal MCH (RBC) [Entitic mass] 29.7 pg Normal 25.9-34.0 [facility] Comment on above: Performed By: #### C BC ####[facility] Qzynnxyflb4902 [place] [phone]. Farhat Leal MCHC (RBC) [Mass/Vol] 32.4 g/dL Normal 29.9-35.2 [facility] Comment on above: Performed By: #### C BC ####[facility] Mjeritqeqd6768 [place] [phone]. Farhat Leal MCV (RBC) [Entitic vol] 91.7 fL Normal 80.0-94.0 [facility] Comment on above: Performed By: #### C BC ####[facility] [address] [place], [place] [address]Dr. Farhat Leal MONO # 1.1 103/ul Critically high 0.3-0.8 [facility] Comment on above: Performed By: #### C BC ####[facility] [address] [place], [place] [address]Dr. Madelynlorri Leal Monocytes/100 WBC (Bld) 9.7 % Normal 1.7-12.0 [facility] Comment on above: Performed By: #### C BC ####[facility] [address] [place], [place] [address]Dr. Farhat Leal NEUT # 9.2 103/ul Critically high 1.4-6.5 [facility] Comment on above: Performed By: #### C BC ####[facility] Sfwyzcatun78[address] [place] [phone]. Farhat Elvis Neutrophils/100 WBC (Bld) 77.6 % Critically high 43.0-75.0 [facility] Comment on above: Performed By: #### C BC ####[facility] Nqyvkrvjlf8112 [place] [phone]. Farhat Leal Platelet mean volume (Bld) [Entitic vol] 9.5 fL Normal 9.5-13.5 [facility] Comment on above: Performed By: #### C BC ####[facility] [address] [place], [place] [address]Dr. Farhat Elvis PLT 375 103/ul Normal 150-450 [facility] Comment on above: Performed By: #### C BC ####[facility] Xmwlyqsulo2173 [place] [phone]. Farhat Leal RBC 3.13 106/ul Critically low 4.70-6.10 [facility] Comment on above: Performed By: #### C BC ####[facility] Yfiiubmyea[address]24 [place] [phone]. Farhat Leal WBC 11.8 103/ul Critically high 4.0-11.0 [facility] Comment on above: Performed By: #### C BC ####[facility] Huhfmisyhu6495 [place] [phone]. Farhat Leal CRPon 11-27-2021 CRP 24.5 mg/dL Critically high <=1.0 [facility] Comment on above: Performed By: #### B FOREIGN DIPLOMAT, CMP, CRP ####[facility] Gw[address]hjodn[address] [place] [address]Dr. Farhat Leal CULTURE OTHERon 11-27-2021 CULTURE OTHER Normal [facility] Comment on above: Performed By: #### O THCX ####[facility] Cyblmswqpf64[address] [place] [address]Dr. Farhat Leal CULTURE OTHER Normal [facility] Comment on above: Performed By: #### O THCX ####[facility] Randjtuupn0648 [place] [phone]. Farhat Leal CULTURE WOUNDon 11-27-2021 CULTURE WOUND Normal [facility] Comment on above: Performed By: #### W OUNDCX ####[facility] Qquarcyout5095 [place] [phone]. Farhat Leal POINT OF CARE GLUCOSEon 11-15 Glucose [Mass/Vol] 147 mg/dL Critically high 74-106 [facility] Comment on above: Performed By: #### P OCGLUC ####[facility] [address]vxy[address] [place], [place] [address]Dr. Farhat Leal PROF 14(COMP METB)on 022 Albumin [Mass/Vol] 1.4 g/dL Critically low 3.4-5.0 [facility] Comment on above: Performed By: #### B FOREIGN DIPLOMAT, CMP, CRP ####[facility] Uyvovjdbsp3560 [place] [phone]. Farhat Lael Albumin/Globulin [Mass ratio] 0.4 {ratio} Normal [facility] Comment on above: Performed By: #### B FOREIGN DIPLOMAT, CMP, CRP ####[facility] Fwbouaoblw5234 [place] [phone]. Farhat Leal ALP [Catalytic activity/Vol] 82 U/L Normal 46-116 [facility] Comment on above: Performed By: #### B FOREIGN DIPLOMAT, CMP, CRP ####[facility] Hjjevqpnyi1003 [place] [phone]. Farhat Leal ALT [Catalytic activity/Vol] 22 U/L Normal 16-63 [facility] Comment on above: Performed By: #### B FOREIGN DIPLOMAT, CMP, CRP ####[facility] Fhcdrktold9556 [place] [address]Dr. Farhat Leal Anion gap [Moles/Vol] 14.2 mmol/L Normal [facility] Comment on above: Performed By: #### B FOREIGN DIPLOMAT, CMP, CRP ####[facility] Rlchrxstys2913 [place] [address]Dr. Farhat Leal AST [Catalytic activity/Vol] 35 U/L Normal 15-37 [facility] Comment on above: Performed By: #### B FOREIGN DIPLOMAT, CMP, CRP ####[facility] Upnvrypsqf5468 [place] [address]Dr. Farhat Leal Bilirubin [Mass/Vol] 0.7 mg/dL Normal 0.2-1.0 [facility] Comment on above: Performed By: #### B FOREIGN DIPLOMAT, CMP, CRP ####[facility] Quupdkagzz27[address] [place] [phone]. Farhat Leal Calcium [Mass/Vol] 8.2 mg/dL Critically low 8.5-10.1 [facility] Comment on above: Performed By: #### B FOREIGN DIPLOMAT, CMP, CRP ####[facility] Boupzkqbeu68[address] [place] [address]Dr. Farhat Leal Chloride [Moles/Vol] 99 mmol/L Normal 98-107 [facility] Comment on above: Performed By: #### B FOREIGN DIPLOMAT, CMP, CRP ####[facility] [address]xgbcbbg[address] [place] [address]Dr. Farhat Leal CO2 [Moles/Vol] 22.6 mmol/L Normal 21.0-32.0 [facility] Comment on above: Performed By: #### B FOREIGN DIPLOMAT, CMP, CRP ####[facility] Ulpomyzcnk[address] [place], [place] [address]Dr. Farhat Leal Creatinine [Mass/Vol] 1.73 mg/dL Critically high 0.70-1.30 [facility] Comment on above: Performed By: #### B FOREIGN DIPLOMAT, CMP, CRP ####[facility] Ccbpukvqgk[address] [place], [place] [address]Dr. Farhat Leal EGFR-AF BRITISH 47 mL/min/1.73m2 Critically low >=60 [facility] Comment on above: Performed By: #### B FOREIGN DIPLOMAT, CMP, CRP ####[facility] Psyvrockhk[address] [place], [place] [address]Dr. Farhat Leal EGFR-NON AF BRITISH 38 mL/min/1.73m2 Critically low >=60 [facility] Comment on above: Performed By: #### B FOREIGN DIPLOMAT, CMP, CRP ####[facility] Bneegtgknv[address] [place], [place] [address]Dr. Farhat Leal Globulin (S) [Mass/Vol] 3.7 g/dL Normal [facility] Comment on above: Performed By: #### B FOREIGN DIPLOMAT, CMP, CRP ####[facility] Rvmglqpakk[address] [place] [address]Dr. Farhat Leal Glucose [Mass/Vol] 220 mg/dL Critically high 74-106 [facility] Comment on above: Performed By: #### B FOREIGN DIPLOMAT, CMP, CRP ####[facility] Jzwjbiydhf94[address] [place], [place] [address]Dr. Farhat Leal Potassium [Moles/Vol] 3.8 mmol/L Normal 3.5-5.1 [facility] Comment on above: Performed By: #### B FOREIGN DIPLOMAT, CMP, CRP ####[facility] Sbuqnelljo[address] [place] [address]Dr. Farhat Leal Protein [Mass/Vol] 5.1 g/dL Critically low 6.4-8.2 [facility] Comment on above: Performed By: #### B FOREIGN DIPLOMAT, CMP, CRP ####[facility] Gmgypnduei[address] [place] [address]Dr. Farhat Leal Sodium [Moles/Vol] 132 mmol/L Critically low 136-145 [facility] Comment on above: Performed By: #### B FOREIGN DIPLOMAT, CMP, CRP ####[facility] Jvthqffxtj[address] [place] [address]Dr. Farhat Leal Urea nitrogen [Mass/Vol] 49.0 mg/dL Critically high 7.0-18.0 [facility] Comment on above: Performed By: #### B FOREIGN DIPLOMAT, CMP, CRP ####[facility] Avllioshsl[address] [place], [place] [address]Dr. Farhat Leal Urea nitrogen/Creatinine [Mass ratio] 28.3 mg/mg Normal [facility] Comment on above: Performed By: #### B FOREIGN DIPLOMAT, CMP, CRP ####[facility] Xquvwmlbrc[address] [place], [place] [address]Dr. Farhat Leal PROTIMEon 11-27-2021 INR Coag (PPP) [Relative time] 1.25 {INR} Normal [facility] Comment on above: Performed By: #### P T ####[facility] Exfswltyph4[address] [place], [place] [address]Dr. Farhat Leal INR GUIDELINES SEE BELOW Normal [facility] Comment on above: Result Comment: MALINA RED INR: 2.0 - 3.0 CONDITIONS NOT LISTED BELOW 2.5 - 3.5 FOR PROSTHETIC HEART VALVE REPLACEMENT 2.5 - 3.5 RECURRENT THROMBOSIS Performed By: #### P T ####[facility] Yzeicnznwr3[address] [place], [place] [address]Dr. Farhat Leal PT Coag (PPP) [Time] 13.3 s Critically high 9.0-11.6 [facility] Comment on above: Performed By: #### P T ####[facility] Ttx[address]upgyfn[address] [place] [id number]. Farhat Leal SED RATE WESTERGRENon 2021 SED RATE 60 mm/hr Critically high <=20 [facility] Comment on above: Performed By: #### S EDR ####[facility] Wxnxijtunh20[address] [place] [phone]. Farhat Leal VANCOMYCIN TROUGHon 11-28-19 VANCOMYCIN TROUGH 21.2 ug/ml Critically high 5.0-20.0 Th e [facility] Comment on above: Performed By: #### V ANCT ####[facility] Pfebw[address]qas[address] [place] [address]Dr. Farhat Leal XR CHEST 1 Von 11-27-2021 XR CHEST 1 V Normal [facility] BNPon 11-26-2021 Natriuretic peptide B (Bld) [Mass/Vol] 44165.0 pg/mL Critically high <=1,800.0 [facility] Comment on above: Performed By: #### B FOREIGN DIPLOMAT, CRP, CMP ####[facility] Pbugtdfinj3964[address] [place], [place] [address]Dr. Farhat Leal CBC AUTO DIFFon 11-26-2021 BASO # 0.0 103/ul Normal 0.0-0.1 [facility] Comment on above: Performed By: #### C BC ####[facility] Kpoaypckyw[address] [place], [place] [address]Dr. Farhat Elvis Basophils/100 WBC (Bld) 0.2 % Normal 0.2-2.0 [facility] Comment on above: Performed By: #### C BC ####[facility] Ajgkbugkqz[address] [place], [place] [address]Dr. Farhat Leal EO # 0.0 103/ul Normal 0.0-0.7 [facility] Comment on above: Performed By: #### C BC ####[facility] Jauyutsnlz[address] [place] [address]Dr. Farhat Elvis Eosinophils/100 WBC (Bld) 0.3 % Critically low 0.9-7.0 [facility] Comment on above: Performed By: #### C BC ####[facility] Jpttnmkqyo5[address] [place] [phone]. Farhat Leal Erythrocyte distribution width (RBC) [Ratio] 13.9 % Normal 11.0-15.0 [facility] Comment on above: Performed By: #### C BC ####[facility] Retrodaqbq[address] [place] [address]Dr. Farhat Leal Hematocrit (Bld) [Volume fraction] 27.3 % Critically low 42.0-54.0 [facility] Comment on above: Performed By: #### C BC ####[facility] Bmqhqzjyjc030[address] [place] [address]Dr. Farhat Leal Hemoglobin (Bld) [Mass/Vol] 8.8 g/dL Critically low 14.0-18.0 [facility] Comment on above: Performed By: #### C BC ####[facility] Tayppbcrdp45[address] [place], [place] [address]Dr. Farhat Leal IG # 0.17 10e3/ul Critically high 0.00-0.03 [facility] Comment on above: Performed By: #### C BC ####[facility] Ngwoznzgpm8669[address] [place], [place] [address]Dr. Farhat Leal IG % 1.2 % Critically high 0.0-0.5 [facility] Comment on above: Performed By: #### C BC ####[facility] Wlfqcxpdca5[address] [place], [place] [address]Dr. Farhat Leal LYMPH # 0.7 103/ul Critically low 1.2-3.8 [facility] Comment on above: Performed By: #### C BC ####[facility] O[address]ht[address]lsw[address] [place] [address]Dr. Farhat Leal Lymphocytes/100 WBC (Bld) 4.8 % Critically low 20.5-60.0 [facility] Comment on above: Performed By: #### C BC ####[facility] Cevskpnxwp34[address] [place] [address]Dr. Farhat Leal MANUAL DIFF REQ NO Normal [facility] Comment on above: Performed By: #### C BC ####[facility] Awtblwypms500[address] [place] [phone]. Farhat Elvis MCH (RBC) [Entitic mass] 29.9 pg Normal 25.9-34.0 [facility] Comment on above: Performed By: #### C BC ####[facility] Qmmnikckxa4082 [place] [phone]. Farhat Elvis MCHC (RBC) [Mass/Vol] 32.2 g/dL Normal 29.9-35.2 [facility] Comment on above: Performed By: #### C BC ####[facility] Pxsdptqfzd1784 [place] [phone]. Fahrat Elvis MCV (RBC) [Entitic vol] 92.9 fL Normal 80.0-94.0 [facility] Comment on above: Performed By: #### C BC ####[facility] Ipswnghklw[address]25[address] [place], [place] [address]Dr. Farhat Leal MONO # 1.3 103/ul Critically high 0.3-0.8 [facility] Comment on above: Performed By: #### C BC ####[facility] Tqlxttvnck9[address] [place] [address]Dr. Farhat Leal Monocytes/100 WBC (Bld) 9.6 % Normal 1.7-12.0 [facility] Comment on above: Performed By: #### C BC ####[facility] Vmqsofpged[address] [place], [place] [address]Dr. Farhat Leal NEUT # 11.4 103/ul Critically high 1.4-6.5 [facility] Comment on above: Performed By: #### C BC ####[facility] Ofrbvcalns[address] [place] [phone]. Farhat Leal Neutrophils/100 WBC (Bld) 83.9 % Critically high 43.0-75.0 [facility] Comment on above: Performed By: #### C BC ####[facility] Elutubklsq36[address] [place] [phone]. Farhat Leal Platelet mean volume (Bld) [Entitic vol] 9.6 fL Normal 9.5-13.5 [facility] Comment on above: Performed By: #### C BC ####[facility] Pwvhyedcbi[address] [place] [address]Dr. Madelynolrri Leal PLT 395 103/ul Normal 150-450 [facility] Comment on above: Performed By: #### C BC ####[facility] Odrtegrcnx4[address] [place] [phone]. Madelynlorri Elvis RBC 2.94 106/ul Critically low 4.70-6.10 [facility] Comment on above: Performed By: #### C BC ####[facility] Xpwwwxuwsa038[address] [place] [address]Dr. Madelynlorri Elvis WBC 13.6 103/ul Critically high 4.0-11.0 [facility] Comment on above: Performed By: #### C BC ####[facility] Swepzbzkak[address] [place] [address]Dr. Farhat Leal CRPon 11-26-2021 CRP [Mass/Vol] mg/L Critically high <=1.0 [facility] Comment on above: Performed By: #### B FOREIGN DIPLOMAT, CRP, CMP ####[facility] Cnfdmlbwup68[address] [place] [address]Dr. Farhat Leal PROF 14(COMP METB)on 022 Albumin [Mass/Vol] 1.5 g/dL Critically low 3.4-5.0 [facility] Comment on above: Performed By: #### B FOREIGN DIPLOMAT, CRP, CMP ####[facility] Uesncsqjnc[address] [place] [address]Dr. Farhat Leal Albumin/Globulin [Mass ratio] 0.4 {ratio} Normal [facility] Comment on above: Performed By: #### B FOREIGN DIPLOMAT, CRP, CMP ####[facility] Ucagbukqoi55[address] [place] [address]Dr. Farhat Leal ALP [Catalytic activity/Vol] 88 U/L Normal 46-116 [facility] Comment on above: Performed By: #### B FOREIGN DIPLOMAT, CRP, CMP ####[facility] Qeyzbawlli4797 [place] [address]Dr. Farhat Leal ALT [Catalytic activity/Vol] 29 U/L Normal 16-63 [facility] Comment on above: Performed By: #### B FOREIGN DIPLOMAT, CRP, CMP ####[facility] Gagssyttdl5355 [place] [address]Dr. Farhat Leal Anion gap [Moles/Vol] 13.3 mmol/L Normal [facility] Comment on above: Performed By: #### B FOREIGN DIPLOMAT, CRP, CMP ####[facility] Ocamlrgnpb[address] [place], [place] [address]Dr. Farhat Leal AST [Catalytic activity/Vol] 32 U/L Normal 15-37 [facility] Comment on above: Performed By: #### B FOREIGN DIPLOMAT, CRP, CMP ####[facility] Fgjysramqo65[address] [place], [place] [address]Dr. Farhat Leal Bilirubin [Mass/Vol] 0.6 mg/dL Normal 0.2-1.0 [facility] Comment on above: Performed By: #### B FOREIGN DIPLOMAT, CRP, CMP ####[facility] Dyzdgbswha3824[address] [place], [place] [address]Dr. Farhat Leal Calcium [Mass/Vol] 8.0 mg/dL Critically low 8.5-10.1 [facility] Comment on above: Performed By: #### B FOREIGN DIPLOMAT, CRP, CMP ####[facility] Gfnxopmudv2412[address] [place], [place] [address]Dr. Farhat Leal Chloride [Moles/Vol] 98 mmol/L Normal 98-107 [facility] Comment on above: Performed By: #### B FOREIGN DIPLOMAT, CRP, CMP ####[facility] Wghbtymdhy13[address] [place], [place] [address]Dr. Farhat Leal CO2 [Moles/Vol] 23.7 mmol/L Normal 21.0-32.0 [facility] Comment on above: Performed By: #### B FOREIGN DIPLOMAT, CRP, CMP ####[facility] Zgnzsxesqi9435[address] [place], [place] [address]Dr. Farhat Leal Creatinine [Mass/Vol] 2.08 mg/dL Critically high 0.70-1.30 [facility] Comment on above: Performed By: #### B FOREIGN DIPLOMAT, CRP, CMP ####[facility] Zylkakypmf360[address] [place] [phone]. Farhat Leal EGFR-AF BRITISH 38 mL/min/1.73m2 Critically low >=60 [facility] Comment on above: Performed By: #### B FOREIGN DIPLOMAT, CRP, CMP ####[facility] Gqcomykxde8419 [place] [address]Dr. Farhat Leal EGFR-NON AF BRITISH 31 mL/min/1.73m2 Critically low >=60 [facility] Comment on above: Performed By: #### B FOREIGN DIPLOMAT, CRP, CMP ####[facility] Lutwfimfyd2041 [place] [address]Dr. Farhat Leal Globulin (S) [Mass/Vol] 3.7 g/dL Normal [facility] Comment on above: Performed By: #### B FOREIGN DIPLOMAT, CRP, CMP ####[facility] Sqqpykxnei7033 [place] [address]Dr. Farhat Leal Glucose [Mass/Vol] 315 mg/dL Critically high 74-106 T [facility] Comment on above: Performed By: #### B FOREIGN DIPLOMAT, CRP, CMP ####[facility] Aspeeimzen14[address] [place], [place] [address]Dr. Fahrat Leal Potassium [Moles/Vol] 4.0 mmol/L Normal 3.5-5.1 [facility] Comment on above: Performed By: #### B FOREIGN DIPLOMAT, CRP, CMP ####[facility] Umvgnjwips63[address] [place], [place] [address]Dr. Farhat Leal Protein [Mass/Vol] 5.2 g/dL Critically low 6.4-8.2 [facility] Comment on above: Performed By: #### B FOREIGN DIPLOMAT, CRP, CMP ####[facility] Xxndlisyml8486[address] [place], [place] [address]Dr. Farhat Leal Sodium [Moles/Vol] 131 mmol/L Critically low 136-145 [facility] Comment on above: Performed By: #### B FOREIGN DIPLOMAT, CRP, CMP ####[facility] Siqkjwhaij7362 [place] [address]Dr. Farhat Leal Urea nitrogen [Mass/Vol] 50.0 mg/dL Critically high 7.0-18.0 [facility] Comment on above: Performed By: #### B FOREIGN DIPLOMAT, CRP, CMP ####[facility] Esqqrvsxej97[address] [place], [place] [address]DrSkylar Leal Urea nitrogen/Creatinine [Mass ratio] 24.0 mg/mg Normal [facility] Comment on above: Performed By: #### B FOREIGN DIPLOMAT, CRP, CMP ####[facility] Gmhnxmdxgm5715[address] [place], [place] [address]DrSkylar Leal PROTIMEon 11-26-2021 INR Coag (PPP) [Relative time] 1.31 {INR} Normal [facility] Comment on above: Performed By: #### P T ####[facility] Fsyppzwqda[address] [place], [place] [address]DrSkylar Leal INR GUIDELINES SEE BELOW Normal [facility] Comment on above: Result Comment: MALINA RED INR: 2.0 - 3.0 CONDITIONS NOT LISTED BELOW 2.5 - 3.5 FOR PROSTHETIC HEART VALVE REPLACEMENT 2.5 - 3.5 RECURRENT THROMBOSIS Performed By: #### P T ####[facility] Xraqlmbdff[address] [place], [place] [address]DrSkylar Leal PT Coag (PPP) [Time] 13.9 s Critically high 9.0-11.6 [facility] Comment on above: Performed By: #### P T ####[facility] Flxkspzjkf[address] [place], [place] [address]DrSkylar Leal SED RATE [facility] 2021 SED RATE 87 mm/hr Critically high <=20 [facility] Comment on above: Performed By: #### S EDR ####[facility] Jkfpuxdbbd[address] [place], [place] [address]DrSkylar Leal BNPon 11-25-2021 Natriuretic peptide B (Bld) [Mass/Vol] 50871.0 pg/mL Critically high <=1,800.0 [facility] Comment on above: Performed By: #### C MP, BNP, CRP ####[facility] Mdnskiwlql[address] [place], [place] [address]DrSkylar Leal CBC AUTO DIFFon 11-25-2021 BASO # 0.0 103/ul Normal 0.0-0.1 [facility] Comment on above: Performed By: #### C BC ####[facility] Zrfcyrrkhh1374 [place] [address]Dr. Farhat Leal Basophils/100 WBC (Bld) 0.4 % Normal 0.2-2.0 [facility] Comment on above: Performed By: #### C BC ####[facility] Zgeycoumdx3787 [place] [address]Dr. Farhat Leal EO # 0.1 103/ul Normal 0.0-0.7 [facility] Comment on above: Performed By: #### C BC ####[facility] Xtkswyunrk14[address] [place], [place] [address]Dr. Farhat Leal Eosinophils/100 WBC (Bld) 1.2 % Normal 0.9-7.0 [facility] Comment on above: Performed By: #### C BC ####[facility] Cmkjqsmflt[address] [place], [place] [address]Dr. Farhat Leal Erythrocyte distribution width (RBC) [Ratio] 13.7 % Normal 11.0-15.0 [facility] Comment on above: Performed By: #### C BC ####[facility] Afoxzsvpvw[address] [place], [place] [address]Dr. Farhat Leal Hematocrit (Bld) [Volume fraction] 29.6 % Critically low 42.0-54.0 [facility] Comment on above: Performed By: #### C BC ####[facility] Etvnnglvom[address] [place], [place] [address]Dr. Farhat Leal Hemoglobin (Bld) [Mass/Vol] 9.3 g/dL Critically low 14.0-18.0 [facility] Comment on above: Performed By: #### C BC ####[facility] Kpvptabrsg24[address] [place] [address]Dr. Farhat Leal IG # 0.15 10e3/ul Critically high 0.00-0.[address] [facility] Comment on above: Performed By: #### C BC ####[facility] Xq[address]eaik40[address] [place], [place] [address]Ce. Farhat Leal IG % 1.4 % Critically high 0.0-0.5 [facility] Comment on above: Performed By: #### C BC ####[facility] Aivyrgwzjc9635 [place], [place] [address]Qi. Farhat Leal LYMPH # 0.8 103/ul Critically low 1.2-3.8 [facility] Comment on above: Performed By: #### C BC ####[facility] Ugrscldili6[address] [place] [phone]. Farhat Leal Lymphocytes/100 WBC (Bld) 7.3 % Critically low 20.5-60.0 [facility] Comment on above: Performed By: #### C BC ####[facility] Wnadehbluc[address]108 [place] [phone]. Farhat Leal MANUAL DIFF REQ NO Normal [facility] Comment on above: Performed By: #### C BC ####[facility] Hdqicmemfh8198 [place] [phone]. Farhat Leal MCH (RBC) [Entitic mass] 29.3 pg Normal 25.9-34.0 [facility] Comment on above: Performed By: #### C BC ####[facility] Hefaegaupa82[address] [place] [phone]. Farhat Leal MCHC (RBC) [Mass/Vol] 31.4 g/dL Normal 29.9-35.2 [facility] Comment on above: Performed By: #### C BC ####[facility] Fktgcuylcb5446 [place] [phone]. Farhat Leal MCV (RBC) [Entitic vol] 93.4 fL Normal 80.0-94.0 [facility] Comment on above: Performed By: #### C BC ####[facility] Bvkloguevf0432 [place] [phone]. Farhat Leal MONO # 1.3 103/ul Critically high 0.3-0.8 [facility] Comment on above: Performed By: #### C BC ####[facility] Kmyclvlpdd8157 [place] [phone]. Farhat Leal Monocytes/100 WBC (Bld) 12.3 % Critically high 1.7-12.0 [facility] Comment on above: Performed By: #### C BC ####[facility] Gftxkruiof0371 [place] [phone]. Farhat Leal NEUT # 8.4 103/ul Critically high 1.4-6.5 [facility] Comment on above: Performed By: #### C BC ####[facility] Jvjfbqcxpf9139 [place] [phone]. Farhat Leal Neutrophils/100 WBC (Bld) 77.4 % Critically high 43.0-75.0 [facility] Comment on above: Performed By: #### C BC ####[facility] Eopaoeonpd2054 [place] [phone]. Farhat Leal Platelet mean volume (Bld) [Entitic vol] 9.8 fL Normal 9.5-13.5 [facility] Comment on above: Performed By: #### C BC ####[facility] Ejkouekivx9511 [place] [phone]. Farhat Leal PLT 390 103/ul Normal 150-450 [facility] Comment on above: Performed By: #### C BC ####[facility] Ydbpogkssr0861 [place] [phone]. Farhat Leal RBC 3.17 106/ul Critically low 4.70-6.10 [facility] Comment on above: Performed By: #### C BC ####[facility] [address]vs[address]yll[address] [place], [place] [id number]. Farhat Leal WBC 10.9 103/ul Normal 4.0-11.0 [facility] Comment on above: Performed By: #### C BC ####[facility] Athtqxpifn5615 [place] [phone]. Farhat Leal CRPon 11-25-2021 CRP 27.2 mg/dL Critically high <=1.0 [facility] Comment on above: Performed By: #### C MP, BNP, CRP ####[facility] Uybiulyknn4231 [place] [address]Dr. Farhat Leal PROF 14(COMP METB)on 022 Albumin [Mass/Vol] 1.5 g/dL Critically low 3.4-5.0 [facility] Comment on above: Performed By: #### C MP, BNP, CRP ####[facility] Lhiomyanas1082 [place] [address]Dr. Farhat Leal Albumin/Globulin [Mass ratio] 0.4 {ratio} Normal [facility] Comment on above: Performed By: #### C MP, BNP, CRP ####[facility] Vzjvyhsooi[address] [place] [address]Dr. Farhat Leal ALP [Catalytic activity/Vol] 86 U/L Normal 46-116 [facility] Comment on above: Performed By: #### C MP, BNP, CRP ####[facility] Xleykwqnzl2930 [place] [address]Dr. Farhat Leal ALT [Catalytic activity/Vol] 34 U/L Normal 16-63 [facility] Comment on above: Performed By: #### C MP, BNP, CRP ####[facility] Robpbofyvk24[address] [place], [place] [address]Dr. Farhat Leal Anion gap [Moles/Vol] 17.8 mmol/L Normal [facility] Comment on above: Performed By: #### C MP, BNP, CRP ####[facility] Nkogjjtham6260 [place] [address]Dr. Farhat Leal AST [Catalytic activity/Vol] 48 U/L Critically high 15-37 [facility] Comment on above: Performed By: #### C MP, BNP, CRP ####[facility] Coeelcrhei7277 [place] [address]Dr. Farhat Leal Bilirubin [Mass/Vol] 0.8 mg/dL Normal 0.2-1.0 [facility] Comment on above: Performed By: #### C MP, BNP, CRP ####[facility] Omuwjdmagh[address] [place], [place] [address]Dr. Farhat Leal Calcium [Mass/Vol] 8.3 mg/dL Critically low 8.5-10.1 Th e [facility] Comment on above: Performed By: #### C MP, BNP, CRP ####[facility] Cwgpyctylf1345 [place] [address]Dr. Farhat Leal Chloride [Moles/Vol] 97 mmol/L Critically low 98-107 [facility] Comment on above: Performed By: #### C MP, BNP, CRP ####[facility] Kpchrktadd9[address] [place], [place] [address]Dr. Farhat Leal CO2 [Moles/Vol] 23.0 mmol/L Normal 21.0-32.0 [facility] Comment on above: Performed By: #### C MP, BNP, CRP ####[facility] Isgirbaanx02[address] [place], [place] [address]Dr. Farhat Leal Creatinine [Mass/Vol] 1.68 mg/dL Critically high 0.70-1.30 [facility] Comment on above: Performed By: #### C MP, BNP, CRP ####[facility] Zfkhcmeefr[address] [place], [place] [address]Dr. Farhat Leal EGFR-AF BRITISH 48 mL/min/1.73m2 Critically low >=60 [facility] Comment on above: Performed By: #### C MP, BNP, CRP ####[facility] Ijmsozsdgt11[address] [place], [place] [address]Dr. Farhat Leal EGFR-NON AF BRITISH 40 mL/min/1.73m2 Critically low >=60 [facility] Comment on above: Performed By: #### C MP, BNP, CRP ####[facility] [address] [place] [address]Dr. Farhat Leal Globulin (S) [Mass/Vol] 3.9 g/dL Normal [facility] Comment on above: Performed By: #### C MP, BNP, CRP ####[facility] Ewvintwafl[address] [place] [address]Dr. Madelynlorri Elvis Glucose [Mass/Vol] 282 mg/dL Critically high 74-106 T [facility] Comment on above: Performed By: #### C MP, BNP, CRP ####[facility] Fujhtuydkw[address] [place] [address]Dr. Farhat Leal Potassium [Moles/Vol] 4.8 mmol/L Normal 3.5-5.1 [facility] Comment on above: Performed By: #### C MP, BNP, CRP ####[facility] Kodylfmbiw[address] [place] [address]Dr. Farhat Leal Protein [Mass/Vol] 5.4 g/dL Critically low 6.4-8.2 Th [facility] Comment on above: Performed By: #### C MP, BNP, CRP ####[facility] Tbjwdsxknk[address] [place], [place] [address]Dr. Farhat Leal Sodium [Moles/Vol] 133 mmol/L Critically low 136-145 [facility] Comment on above: Performed By: #### C MP, BNP, CRP ####[facility] Qfnqyvoafp[address] [place], [place] [address]Dr. Farhat Leal Urea nitrogen [Mass/Vol] 40.0 mg/dL Critically high 7.0-18.0 [facility] Comment on above: Performed By: #### C MP, BNP, CRP ####[facility] Minlfregdg5660[address] [place], [place] [address]Dr. Farhat Leal Urea nitrogen/Creatinine [Mass ratio] 23.8 mg/mg Normal [facility] Comment on above: Performed By: #### C MP, BNP, CRP ####[facility] V[address]kktntir6[address] [place], [place] [address]Dr. Farhat Leal PROTIMEon 11-25-2021 INR Coag (PPP) [Relative time] 1.48 {INR} Normal [facility] Comment on above: Performed By: #### P T ####[facility] Motxnmggiz99[address] [place], [place] [address]Dr. Farhat Leal INR GUIDELINES SEE BELOW Normal [facility] Comment on above: Result Comment: MALINA RED INR: 2.0 - 3.0 CONDITIONS NOT LISTED BELOW 2.5 - 3.5 FOR PROSTHETIC HEART VALVE REPLACEMENT 2.5 - 3.5 RECURRENT THROMBOSIS Performed By: #### P T ####[facility] [address]wb[address] [place] [address]Dr. Farhat Elvis PT Coag (PPP) [Time] 15.6 s Critically high 9.0-11.6 [facility] Comment on above: Performed By: #### P T ####[facility] Garlrgqkrc[address] [place] [address]Dr. Farhat Leal SED RATE WESTERGRENon 2021 SED RATE 76 mm/hr Critically high <=20 The [facility] Comment on above: Performed By: #### S EDR ####[facility] Fsknkstqgj8[address] [place], [place] [address]Dr. Madelynlorri Leal BNPon 11-24-2021 Natriuretic peptide B (Bld) [Mass/Vol] 61203.0 pg/mL Critically high <=1,800.0 [facility] Comment on above: Performed By: #### B FOREIGN DIPLOMAT, CMP, CRP ####[facility] Lapdohvmxp5446[address] [place], [place] [address]Dr. Madelynlorri eLal CBC AUTO DIFFon 11-24-2021 BASO # 0.0 103/ul Normal 0.0-0.1 [facility] Comment on above: Performed By: #### C BC ####[facility] Mwfrzudlwg[address] [place], [place] [address]Dr. Farhat Leal Basophils/100 WBC (Bld) 0.3 % Normal 0.2-2.0 [facility] Comment on above: Performed By: #### C BC ####[facility] Qfvvkmwnbo9732[address] [place], [place] [address]Dr. Farhat Leal EO # 0.2 103/ul Normal 0.0-0.7 [facility] Comment on above: Performed By: #### C BC ####[facility] Dbtxescxgx0054[address] [place], [place] [address]Dr. Farhat Leal Eosinophils/100 WBC (Bld) 1.2 % Normal 0.9-7.0 [facility] Comment on above: Performed By: #### C BC ####[facility] Jgtegvyclq86[address] [place], [place] [address]Dr. Farhat Leal Erythrocyte distribution width (RBC) [Ratio] 13.5 % Normal 11.0-15.0 [facility] Comment on above: Performed By: #### C BC ####[facility] Qardqcgwor0043 [place] [address]Dr. Farhat Leal Hematocrit (Bld) [Volume fraction] 31.1 % Critically low 42.0-54.0 [facility] Comment on above: Performed By: #### C BC ####[facility] Snymxqok[address] [place], [place] [address]DrSkylar Madelynlorri Leal Hemoglobin (Bld) [Mass/Vol] 10.0 g/dL Critically low 14.0-18.0 [facility] Comment on above: Performed By: #### C BC ####[facility] Fxcfsjjpfq1612[address] [place], [place] [address]Dr. Farhat Leal IG # 0.13 10e3/ul Critically high 0.00-0.03 [facility] Comment on above: Performed By: #### C BC ####[facility] Wmksjzmpfe4[address] [place], [place] [address]DrSkylar Leal IG % 1.0 % Critically high 0.0-0.5 [facility] Comment on above: Performed By: #### C BC ####[facility] Iskqlectgb8725[address] [place], [place] [address]DrSkylar Leal LYMPH # 0.7 103/ul Critically low 1.2-3.8 The [facility] Comment on above: Performed By: #### C BC ####[facility] Rqqngygvyr[address] [place], [place] [address]DrSkylar Leal Lymphocytes/100 WBC (Bld) 4.9 % Critically low 20.5-60.0 [facility] Comment on above: Performed By: #### C BC ####[facility] Izapdnjsqs4[address] [place], [place] [address]DrSkylar Leal MANUAL DIFF REQ NO Normal [facility] Comment on above: Performed By: #### C BC ####[facility] Uafacekuxh92[address] [place], [place] [address]DrSkylar Leal MCH (RBC) [Entitic mass] 29.6 pg Normal 25.9-34.0 [facility] Comment on above: Performed By: #### C BC ####[facility] [address]ys[address] [place] [phone]. Farhat Leal MCHC (RBC) [Mass/Vol] 32.2 g/dL Normal 29.9-35.2 [facility] Comment on above: Performed By: #### C BC ####[facility] Vkgcsmqexd54[address] [place] [phone]. Farhat Leal MCV (RBC) [Entitic vol] 92.0 fL Normal 80.0-94.0 [facility] Comment on above: Performed By: #### C BC ####[facility] G[address]irtx[address]ct[address] [place] [address]Dr. Farhat Elvis MONO # 1.3 103/ul Critically high 0.3-0.8 [facility] Comment on above: Performed By: #### C BC ####[facility] Agafmrytvt6[address] [place] [address]Dr. Farhat Elvis Monocytes/100 WBC (Bld) 9.6 % Normal 1.7-12.0 [facility] Comment on above: Performed By: #### C BC ####[facility] Ajjo[address]hoffi[address] [place] [phone]. Farhat Leal NEUT # 11.2 103/ul Critically high 1.4-6.5 [facility] Comment on above: Performed By: #### C BC ####[facility] Pherrkbdfl80[address] [place] [phone]. Farhat Elvis Neutrophils/100 WBC (Bld) 83.0 % Critically high 43.0-75.0 [facility] Comment on above: Performed By: #### C BC ####[facility] G[address]dom[address] [place], [place] [id number]. Farhat Elvis Platelet mean volume (Bld) [Entitic vol] 9.5 fL Normal 9.5-13.5 [facility] Comment on above: Performed By: #### C BC ####[facility] [address]ujsmvr[address] [place] [phone]. Farhat Leal PLT 395 103/ul Normal 150-450 [facility] Comment on above: Performed By: #### C BC ####[facility] Qvwnpdykje1834 [place] [phone]. Farhat Leal RBC 3.38 106/ul Critically low 4.70-6.10 [facility] Comment on above: Performed By: #### C BC ####[facility] Pjzximchsx5918 [place] [phone]. Farhat Leal WBC 13.4 103/ul Critically high 4.0-11.0 [facility] Comment on above: Performed By: #### C BC ####[facility] Nvhuutwtjs69[address] [place] [phone]. Farhat Leal CRPon 11-24-2021 CRP 27.8 mg/dL Critically high <=1.0 [facility] Comment on above: Performed By: #### B FOREIGN DIPLOMAT, CMP, CRP ####[facility] Agyt[address]ywd[address] [place] [phone]. Farhat Leal CULTURE ANAEROBICon 11-25-19 22 CULTURE ANAEROBIC Culture Observations : NO GROWTH OF ANAEROBES AT 72 HOURS. [facility] Comment on above: Performed By: #### A NACX ####[facility] Qluasjgacr8[address] [place] [phone]. Farhat Leal CULTURE ANAEROBIC Culture Observations : NO GROWTH OF ANAEROBES AT 72 HOURS. [facility] Comment on above: Performed By: #### A NACX ####[facility] Pzucjffvij70[address] [place] [phone]. Farhat Leal CULTURE ANAEROBIC Culture Observations : No growth of anaerobes at 72 hours. [facility] Comment on above: Performed By: #### A NACX ####[facility] Jmklwnsflp5112 [place] [phone]. Yilorri Leal CULTURE ANAEROBIC Culture Observations : No growth of anaerobes at 72 hours. [facility] Comment on above: Performed By: #### A NACX ####[facility] Xtslnlazmi[address] [place], [place] [address]Dr. Farhat Leal CULTURE URINEon 11-24-2021 CULTURE URINE Culture Observations : NO GROWTH. Normal [facility] Comment on above: Performed By: #### U RCX ####[facility] [address]vznlcv15[address] [place], [place] [address]Dr. Farhat Leal ECHOCARDIO M/2D COMPLETEon 1 ECHOCARDIO M/2D COMPLETE Normal [facility] ER URINE PROFILEon Bilirubin Ql (U) Negative Normal NEGATIVE The [facility] Comment on above: Performed By: #### E RUR ####[facility] Kdsjaciriv8026[address] [place], [place] [address]Dr. Farhat Leal Clarity (U) CLEAR Normal CLEAR [facility] Comment on above: Performed By: #### E RUR ####[facility] Hmyarfhvun[address]17[address] [place], [place] [address]Dr. Farhat Leal Color (U) YELLOW Normal YELLOW [facility] Comment on above: Performed By: #### E RUR ####[facility] Vslvgdmgqe400[address] [place], [place] [address]Dr. Farhat Leal ERUAHD A micrscopic examination will be performed if indicated. Normal [facility] Comment on above: Performed By: #### E RUR ####[facility] Ntreddppps[address] [place], [place] [address]Dr. Farhat Leal Glucose Ql (U) Negative Normal NEGATIVE The [facility] Comment on above: Performed By: #### E RUR ####[facility] Pftmuwwjkj360[address] [place], [place] [address]Dr. Farhat Leal Hemoglobin Ql (U) Negative Normal NEGATIVE The [facility] Comment on above: Performed By: #### E RUR ####[facility] Citklmhtle[address] [place], [place] [address]Dr. Farhat Leal Ketones Ql (U) TRACE Abnormal NEGATIVE The [facility] Comment on above: Performed By: #### E RUR ####[facility] Twuoypvnyr786[address] [place], [place] [address]Dr. Farhat Leal LEUKOCYTES Negative Normal NEGATIVE [facility] Comment on above: Performed By: #### E RUR ####[facility] Fsjadqgepu64[address] [place] [address]Dr. Farhat Leal Nitrite Ql (U) Negative Normal NEGATIVE The [facility] Comment on above: Performed By: #### E RUR ####[facility] Ydopombjwk[address] [place], [place] [address]Dr. Farhat Leal pH (U) 5.5 [pH] Normal 5-9 [facility] Comment on above: Performed By: #### E RUR ####[facility] Lgkljgmjou[address] [place], [place] [address]Dr. Farhat Leal SPEC GRAVITY 1.015 Normal 1.005-<=1.02 5 [facility] Comment on above: Performed By: #### E RUR ####[facility] Ugdghogpxm183[address] [place], [place] [address]Dr. Farhat Leal UA PROTEIN Negative Normal NEGATIVE/ TRACE [facility] Comment on above: Performed By: #### E RUR ####[facility] Eyqyqinogj235[address] [place], [place] [address]Dr. Farhat Leal UR MICRO IND NOT INDICATED Normal [facility] Comment on above: Performed By: #### E RUR ####[facility] Mpyuwydrix[address] [place], [place] [address]Dr. Farhat Leal Urobilinogen Qn (U) 0.2 {Boyd'U}/dL Normal 0.2 - 1. 0 [facility] Comment on above: Performed By: #### E RUR ####[facility] Ofepewpmoo0[address] [place], [place] [address]Dr. Farhat Leal GRAM STAINon 11-24-2021 DIPHTHEROIDS Normal [facility] Comment on above: Performed By: #### G STAIN ####[facility] Wpttbsadcr27[address] [place], [place] [address]Dr. Farhat Leal EPITHELIALS Normal [facility] Comment on above: Performed By: #### G STAIN ####[facility] Wakgfzljap[address] [place], [place] [address]Dr. Farhat Leal FUNGAL ELEMENTS Normal [facility] Comment on above: Performed By: #### G STAIN ####[facility] I[address]ipxcqzef[address] [place] [address]Dr. Farhat Leal GRAM NEG BACILLI Normal [facility] Comment on above: Performed By: #### G STAIN ####[facility] Omzrowpjuo[address] [place] [address]Dr. Farhat Leal GRAM NEG DIPPLOCOCCI Normal [facility] Comment on above: Performed By: #### G STAIN ####[facility] Awrfpnnpfw43[address] [place] [address]Dr. Farhat Leal GRAM POS BACILLI Normal [facility] Comment on above: Performed By: #### G STAIN ####[facility] Ipmrltmmct[address] [place], [place] [address]Dr. Farhat Leal GRAM POSITIVE COCCI FEW Normal [facility] Comment on above: Performed By: #### G STAIN ####[facility] Tdbkiahvvz6[address] [place], [place] [address]Dr. Farhat Leal GRAM STAIN SOURCE RT ACHILLES TENDON Normal [facility] Comment on above: Performed By: #### G STAIN ####[facility] Eitoacoqgz[address]14[address] [place], [place] [address]Dr. Farhat Leal GS_DIPTH Normal [facility] Comment on above: Performed By: #### G STAIN ####[facility] Pcdmhaijdv[address] [place], [place] [address]Dr. Farhat Leal WBC RARE Normal [facility] Comment on above: Performed By: #### G STAIN ####[facility] Jlurjtbkoi25[address] [place] [address]Dr. Farhat Leal COMMENTS NO ORGANISMS OBSERVED Normal [facility] Comment on above: Performed By: #### G STAIN ####[facility] Ejnbppvwfy[address] [place], [place] [address]Dr. Farhat Leal DIPHTHEROIDS Normal [facility] Comment on above: Performed By: #### G STAIN ####[facility] Tjebokanxu[address] [place] [address]Dr. Farhat Leal EPITHELIALS Normal [facility] Comment on above: Performed By: #### G STAIN ####[facility] Fjmvmbawgk8361 [place] [phone]. Farhat Leal FUNGAL ELEMENTS Normal [facility] Comment on above: Performed By: #### G STAIN ####[facility] Gpuyotowul90[address] [place] [phone]. Farhat Leal GRAM NEG BACILLI Normal [facility] Comment on above: Performed By: #### G STAIN ####[facility] Cheiifcfry[address] [place] [address]Dr. Farhat Leal GRAM NEG DIPPLOCOCCI Normal [facility] Comment on above: Performed By: #### G STAIN ####[facility] Lbzijamgdk1588 [place] [address]Dr. Farhat Leal GRAM POS BACILLI Normal [facility] Comment on above: Performed By: #### G STAIN ####[facility] K[address]xqhdwwhc[address] [place], [place] [address]Dr. Farhat Leal GRAM POSITIVE COCCI Normal [facility] Comment on above: Performed By: #### G STAIN ####[facility] Owem[address]dywv[address] [place] [address]Dr. Farhat Leal GRAM STAIN SOURCE RT CALCANEOUS Normal [facility] Comment on above: Performed By: #### G STAIN ####[facility] Rfkkiecxbp26[address] [place] [address]Dr. Farhat Leal GS_DIPTH Normal [facility] Comment on above: Performed By: #### G STAIN ####[facility] Pposjstwle4799 [place] [address]Dr. Farhat Leal WBC RARE Normal [facility] Comment on above: Performed By: #### G STAIN ####[facility] Ourttjvcrn29[address] [place] [address]Dr. Farhat Leal DIPHTHEROIDS Normal [facility] Comment on above: Performed By: #### G STAIN ####[facility] Dljdnlgbgg9631 [place] [address]Dr. Farhat Leal EPITHELIALS Normal [facility] Comment on above: Performed By: #### G STAIN ####[facility] Bmdtkmkpmr7435 [place] [address]Dr. Farhat Leal FUNGAL ELEMENTS Normal [facility] Comment on above: Performed By: #### G STAIN ####[facility] Deynewtzmm07[address] [place] [address]Dr. Farhat Leal GRAM NEG BACILLI FEW Normal [facility] Comment on above: Performed By: #### G STAIN ####[facility] Maohfckyed56[address] [place] [address]Dr. Farhat Leal GRAM NEG DIPPLOCOCCI Normal [facility] Comment on above: Performed By: #### G STAIN ####[facility] Yeeztqqhjf[address] [place], [place] [address]Dr. Farhat Leal GRAM POS BACILLI Normal [facility] Comment on above: Performed By: #### G STAIN ####[facility] Hubdaozsma6[address] [place], [place] [address]Dr. Farhat Leal GRAM POSITIVE COCCI FEW Normal [facility] Comment on above: Performed By: #### G STAIN ####[facility] Wattmsoeay[address] [place], [place] [address]Dr. Farhat Leal GRAM STAIN SOURCE #2 Rt foot abscess Normal [facility] Comment on above: Performed By: #### G STAIN ####[facility] Yywylqdqft[address] [place], [place] [address]Dr. Farhat Leal GS_DIPTH Normal [facility] Comment on above: Performed By: #### G STAIN ####[facility] Iqxxfklfmi0858 [place] [address]Dr. Farhat Leal WBC RARE Normal [facility] Comment on above: Performed By: #### G STAIN ####[facility] Ahlckzzmip040[address] [place] [address]Dr. Farhat Leal DIPHTHEROIDS Normal [facility] Comment on above: Performed By: #### G STAIN ####[facility] Touiiwayct4027 [place] [address]Dr. Farhat Leal EPITHELIALS Normal [facility] Comment on above: Performed By: #### G STAIN ####[facility] Imhhvywxdt508[address] [place], [place] [address]Dr. Farhat Leal FUNGAL ELEMENTS Normal [facility] Comment on above: Performed By: #### G STAIN ####[facility] Pxqjxrxkwr3173 [place] [address]Dr. Farhat eLal GRAM NEG BACILLI FEW Normal [facility] Comment on above: Performed By: #### G STAIN ####[facility] Lhybvbsflh1650 [place] [address]Dr. Farhat Leal GRAM NEG DIPPLOCOCCI Normal [facility] Comment on above: Performed By: #### G STAIN ####[facility] Voeusjhyxy[address] [place], [place] [address]Dr. Farhat Leal GRAM POS BACILLI Normal [facility] Comment on above: Performed By: #### G STAIN ####[facility] Ovbegaopoi38[address] [place], [place] [address]Dr. Farhat Leal GRAM POSITIVE COCCI FEW Normal [facility] Comment on above: Performed By: #### G STAIN ####[facility] Qguczeriap535[address] [place], [place] [address]Dr. Farhat Leal GRAM STAIN SOURCE #1 Rt foot abscess Normal [facility] Comment on above: Performed By: #### G STAIN ####[facility] Hglffolgja37[address] [place], [place] [address]Dr. Farhat Leal GS_DIPTH Normal [facility] Comment on above: Performed By: #### G STAIN ####[facility] Smhbclhrbr8765[address] [place], [place] [address]Dr. Farhat Leal WBC NONE SEEN Normal [facility] Comment on above: Performed By: #### G STAIN ####[facility] Iqkejqivnn[address] [place], [place] [address]Dr. Farhat Leal POINT OF CARE GLUCOSEon 10- 0-2021 Glucose [Mass/Vol] 331 mg/dL Critically high 74-106 [facility] Comment on above: Performed By: #### P OCGLUC ####[facility] Ermydnjhkp[address] [place], [place] [address]Dr. Farhat Leal Glucose [Mass/Vol] 236 mg/dL Critically high 74-106 [facility] Comment on above: Performed By: #### P OCGLUC ####[facility] Rvobyoynjq6352 [place] [address]Dr. Farhat Leal PROF 14(COMP METB)on 022 Albumin [Mass/Vol] 1.6 g/dL Critically low 3.4-5.0 [facility] Comment on above: Performed By: #### B FOREIGN DIPLOMAT, CMP, CRP ####[facility] Lsjktggjbc4448 [place] [address]Dr. Farhat Leal Albumin/Globulin [Mass ratio] 0.4 {ratio} Normal [facility] Comment on above: Performed By: #### B FOREIGN DIPLOMAT, CMP, CRP ####[facility] Oirsdplzbe[address] [place], [place] [address]Dr. Farhat Leal ALP [Catalytic activity/Vol] 94 U/L Normal 46-116 [facility] Comment on above: Performed By: #### B FOREIGN DIPLOMAT, CMP, CRP ####[facility] [address]zlzbfuyeb[address] [place], [place] [address]Dr. Farhat Leal ALT [Catalytic activity/Vol] 49 U/L Normal 16-63 [facility] Comment on above: Performed By: #### B FOREIGN DIPLOMAT, CMP, CRP ####[facility] E[address]cyxbqyv[address] [place], [place] [address]Dr. Farhat Leal Anion gap [Moles/Vol] 12.5 mmol/L Normal [facility] Comment on above: Performed By: #### B FOREIGN DIPLOMAT, CMP, CRP ####[facility] Gyneszjazy[address] [place], [place] [address]Dr. Farhat Leal AST [Catalytic activity/Vol] 102 U/L Critically high 15-37 [facility] Comment on above: Performed By: #### B FOREIGN DIPLOMAT, CMP, CRP ####[facility] Sabwpcrhmh[address] [place], [place] [address]Dr. Farhat Leal Bilirubin [Mass/Vol] 0.8 mg/dL Normal 0.2-1.0 [facility] Comment on above: Performed By: #### B FOREIGN DIPLOMAT, CMP, CRP ####[facility] [facility] Maayxmkcrl[address] [place], [place] [address]Dr. Farhat Leal Calcium [Mass/Vol] 8.4 mg/dL Critically low 8.5-10.1 [facility] Comment on above: Performed By: #### B FOREIGN DIPLOMAT, CMP, CRP ####[facility] Rzakuupesh[address] [place] [address]Dr. Farhat Leal Chloride [Moles/Vol] 96 mmol/L Critically low 98-107 [facility] Comment on above: Performed By: #### B FOREIGN DIPLOMAT, CMP, CRP ####[facility] Fhbqkwcmbb[address] [place], [place] [address]Dr. Farhat Leal CO2 [Moles/Vol] 24.8 mmol/L Normal 21.0-32.0 [facility] Comment on above: Performed By: #### B FOREIGN DIPLOMAT, CMP, CRP ####[facility] Rrivewcjqa9217[address] [place], [place] [address]Dr. Farhat Leal Creatinine [Mass/Vol] 1.36 mg/dL Critically high 0.70-1.30 [facility] Comment on above: Performed By: #### B FOREIGN DIPLOMAT, CMP, CRP ####[facility] Mznzyzxnwn[address] [place], [place] [address]Dr. Farhat Leal EGFR-AF BRITISH >60 Normal >=60 [facility] Comment on above: Performed By: #### B FOREIGN DIPLOMAT, CMP, CRP ####[facility] Ibmueffywf[address] [place], [place] [address]Dr. Farhat Leal EGFR-NON AF BRITISH 51 mL/min/1.73m2 Critically low >=60 [facility] Comment on above: Performed By: #### B FOREIGN DIPLOMAT, CMP, CRP ####[facility] Dpafqftgee[address] [place] [address]Dr. Farhat Leal Globulin (S) [Mass/Vol] 4.1 g/dL Normal [facility] Comment on above: Performed By: #### B FOREIGN DIPLOMAT, CMP, CRP ####[facility] Pscnuwkcnb[address] [place], [place] [address]Dr. Farhat Leal Glucose [Mass/Vol] 204 mg/dL Critically high 74-106 [facility] Comment on above: Performed By: #### B FOREIGN DIPLOMAT, CMP, CRP ####[facility] Ivtgukxgnn[address] [place] [address]Dr. Farhat Leal Potassium [Moles/Vol] 4.3 mmol/L Normal 3.5-5.1 [facility] Comment on above: Performed By: #### B FOREIGN DIPLOMAT, CMP, CRP ####[facility] Ibdsdfovug[address] [place] [address]Dr. Farhat Leal Protein [Mass/Vol] 5.7 g/dL Critically low 6.4-8.2 [facility] Comment on above: Performed By: #### B FOREIGN DIPLOMAT, CMP, CRP ####[facility] Wqqtvaecod28[address] [place] [address]Dr. Farhat Leal Sodium [Moles/Vol] 129 mmol/L Critically low 136-145 [facility] Comment on above: Performed By: #### B FOREIGN DIPLOMAT, CMP, CRP ####[facility] Aalxzjgpyd57[address] [place], [place] [address]Dr. Farhat Leal Urea nitrogen [Mass/Vol] 41.0 mg/dL Critically high 7.0-18.0 [facility] Comment on above: Performed By: #### B FOREIGN DIPLOMAT, CMP, CRP ####[facility] Feqlfcggaw7[address] [place], [place] [address]Dr. Farhat Leal Urea nitrogen/Creatinine [Mass ratio] 30.1 mg/mg Normal [facility] Comment on above: Performed By: #### B FOREIGN DIPLOMAT, CMP, CRP ####[facility] Dvongxlnke64[address] [place], [place] [address]Dr. Farhat Leal PROTIMEon 11-24-2021 INR Coag (PPP) [Relative time] 2.20 {INR} Normal [facility] Comment on above: Performed By: #### P T ####[facility] Uayksudyut4[address] [place], [place] [address]Dr. Farhat Leal INR GUIDELINES SEE BELOW Normal [facility] Comment on above: Result Comment: MALINA RED INR: 2.0 - 3.0 CONDITIONS NOT LISTED BELOW 2.5 - 3.5 FOR PROSTHETIC HEART VALVE REPLACEMENT 2.5 - 3.5 RECURRENT THROMBOSIS Performed By: #### P T ####[facility] Wfcferiquh[address] [place] [address]Dr. Farhat Leal PT Coag (PPP) [Time] 22.6 s Critically high 9.0-11.6 [facility] Comment on above: Performed By: #### P T ####[facility] Rdqkyqhdjk55[address] [place] [id number]. Farhat Leal SED RATE [facility] 2021 SED RATE 80 mm/hr Critically high <=20 [facility] Comment on above: Performed By: #### S EDR ####[facility] Negyfjhbqh235[address] [place], [place] [address]Dr. Farhat Leal BLOOD CULTURE ID PANELon A. baumannii Not detected Normal NOT DETECTED [facility] Comment on above: Performed By: #### B CID2 ####[facility] Nvfvrbfbtm9[address] [place], [place] [address]Dr. Farhat Elvis Bacteriodes fragilis Not detected Normal NOT DETECTED [facility] Comment on above: Performed By: #### B CID2 ####[facility] Vknfantdek[address] [place], [place] [address]Dr. Farhat Elvis BCID CONTROLS PASSED Normal [facility] Comment on above: Performed By: #### B CID2 ####[facility] Qegmsqmbqz8414[address] [place], [place] [address]Dr. Farhat Elvis BCIDBTHD BLOOD CULTURE BOTTLE INFORMATION Normal [facility] Comment on above: Performed By: #### B CID2 ####[facility] Mxuknanyst[address]64[address] [place], [place] [address]Dr. Farhat Leal BCIDHD1 ANTIMICROBIAL RESISTANCE GENES Normal [facility] Comment on above: Performed By: #### B CID2 ####[facility] Nubkksdbvg127[address] [place], [place] [address]Dr. Farhat Leal BCIDHD2 SEE BELOW Normal [facility] Comment on above: Result Comment: Note : Antimicrobial resitance can occur via multiple mechanisms. A Not Detected result for the [employer] antomicrobial resistance gene assays does not indicate antimicrobial susceptibility. Subculturing is required for species identification and susceptibility testing of isolates. Performed By: #### B CID2 ####[facility] Ym[address]rflprn[address] [place] [address]Dr. Farhat Leal BCIDHD3 Positive Normal [facility] Comment on above: Performed By: #### B CID2 ####[facility] Hfznlyfpnr[address] [place] [address]Dr. aFrhat Leal BCIDHD4 Negative Normal [facility] Comment on above: Performed By: #### B CID2 ####[facility] Opx[address]xywhd[address] [place] [address]Dr. Farhat Leal BCIDHD5 YEAST Normal [facility] Comment on above: Performed By: #### B CID2 ####[facility] Ooufwvauqt[address] [place], [place] [address]Dr. Farhat Leal Bottle Set: Set 1 Normal [facility] Comment on above: Performed By: #### B CID2 ####[facility] Lygvcuakeb[address] [place], [place] [address]Dr. Farhat Leal Bottle: Aerobic Normal [facility] Comment on above: Performed By: #### B CID2 ####[facility] Gfyrmurihb[address] [place], [place] [address]Dr. Farhat [facility] C. neoformans/gattii Not detected Normal NOT DETECTED [facility] Comment on above: Performed By: #### B CID2 ####[facility] Ajjgumzrfm36[address] [place] [address]Dr. Farhat [facility] Disha albicans Not detected Normal NOT DETECTED [facility] Comment on above: Performed By: #### B CID2 ####[facility] Oiifcjpdwy30[address] [place] [address]Dr. Farhat Leal Disha auris Not detected Normal NOT DETECTED The [facility] Comment on above: Performed By: #### B CID2 ####[facility] H[address]vnmncyb8794[address] [place], [place] [address]Dr. Farhat [facility] Disha glabrata Not detected Normal NOT DETECTED [facility] Comment on above: Performed By: #### B CID2 ####[facility] Jfsitbwofy218[address] [place], [place] [address]Dr. [facility] Disha Krusei Not detected Normal NOT DETECTED The [facility] Comment on above: Performed By: #### B CID2 ####[facility] Tirjwqfyke[address]50[address] [place], [place] [address]Dr. Farhat Leal Disha Parapsilosis Not detected Normal NOT DETECTED [facility] Comment on above: Performed By: #### B CID2 ####[facility] Bpxuhkwuub299[address] [place], [place] [address]Dr. Farhat Leal Disha Tropicalis Not detected Normal NOT DETECTED [facility] Comment on above: Performed By: #### B CID2 ####[facility] Oyupfmjdvf8[address] [place], [place] [address]Dr. Madelynlorri Leal CTX-M Resistant Gene Not Applicable Normal NOT DETECTE [facility] Comment on above: Performed By: #### B CID2 ####[facility] Vfkdpxkidx66[address] [place], [place] [address]Dr. Farhat Leal E. Cloacae complex Not detected Normal NOT DETECTED [facility] Comment on above: Performed By: #### B CID2 ####[facility] Srlfhvrrzk[address] [place], [place] [address]Dr. Madelynlorri Leal E. faecalis Not detected Normal NOT DETECTED [facility] Comment on above: Performed By: #### B CID2 ####[facility] Rpwfsrzmxa[address] [place], [place] [address]Dr. Madelynlorri Leal E. faecium Not detected Normal NOT DETECTED [facility] Comment on above: Performed By: #### B CID2 ####[facility] Ct[address]llpimgr[address] [place], [place] [address]Dr. Madelynlorri Leal Enterobacteriaceae Not detected Normal NOT DETECTED [facility] Comment on above: Performed By: #### B CID2 ####[facility] Bhuypzuwww7175[address] [place], [place] [address]Dr. Madleynlorri Leal Escherichia coli Not detected Normal NOT DETECTED [facility] Comment on above: Performed By: #### B CID2 ####[facility] Ldsfiffkmx0387[address] [place], [place] [address]Dr. Farhat Leal H. influenzae Not detected Normal NOT DETECTED The [facility] Comment on above: Performed By: #### B CID2 ####[facility] Tmjbydmajd17[address] [place] [address]Dr. Farhat Leal IMP Resistant Gene Not Applicable Normal NOT DETECTED [facility] Comment on above: Performed By: #### B CID2 ####[facility] Kwfwuxwpkg8296 [place] [address]Dr. Farhat Leal K. oxytoca Not detected Normal NOT DETECTED [facility] Comment on above: Performed By: #### B CID2 ####[facility] Owigolerjs9686[address] [place], [place] [address]Dr. Farhat Leal K. pneumoniae Not detected Normal NOT DETECTED The [facility] Comment on above: Performed By: #### B CID2 ####[facility] Tgugfsluvu8420[address] [place], [place] [address]Dr. Farhat Leal Klebsiella aerogenes Not detected Normal NOT DETECTED [facility] Comment on above: Performed By: #### B CID2 ####[facility] Srahukfccp1987[address] [place], [place] [address]Dr. Farhat Leal KPC Resistant Gene Not Applicable Normal NOT DETECTED [facility] Comment on above: Performed By: #### B CID2 ####[facility] Pqlhjqsedx3239[address] [place], [place] [address]Dr. Farhat Leal List. monocytogenes Not detected Normal NOT DETECTED [facility] Comment on above: Performed By: #### B CID2 ####[facility] Ssewgyhurp1666[address] [place], [place] [address]Dr. Madelynlorri Elvis Mcr-1 Resistant Gene Not Applicable Normal NOT DETECTE D [facility] Comment on above: Performed By: #### B CID2 ####[facility] Qyiguvvdel606[address] [place], [place] [address]Dr. Yilan Leal mecA/C Not Applicable Normal NOT DETECTED [facility] Comment on above: Performed By: #### B CID2 ####[facility] Uvfoxywria1439[address] [place], [place] [address]Dr. Madelynlan Elvis mecA/C MREJ Detected Abnormal NOT DETECTED [facility] Comment on above: Performed By: #### B CID2 ####[facility] Lvmepmbdpb0587 [place] [phone]. Farhat Leal N. meningitidis Not detected Normal NOT DETECTED The [facility] Comment on above: Performed By: #### B CID2 ####[facility] Qapsgjfcja8914[address] [place], [place] [address]Dr. Farhat Leal NDM Resistant Gene Not Applicable Normal NOT DETECTED [facility] Comment on above: Performed By: #### B CID2 ####[facility] Pzhfpkrzeb678[address] [place], [place] [address]Dr. Farhat Leal Oxa-48-like Not Applicable Normal NOT DETECTED [facility] Comment on above: Performed By: #### B CID2 ####[facility] Qylcqiyfbp6886[address] [place], [place] [address]Dr. Farhat Leal Proteus Not detected Normal NOT DETECTED [facility] Comment on above: Performed By: #### B CID2 ####[facility] Heggccaguh3754[address] [place], [place] [address]Dr. Farhat Leal Pseud. aeruginosa Not detected Normal NOT DETECTED [facility] Comment on above: Performed By: #### B CID2 ####[facility] Hizepznkgk344[address] [place], [place] [address]Dr. Farhat Leal S. maltophilia Not detected Normal NOT DETECTED [facility] Comment on above: Performed By: #### B CID2 ####[facility] Yolbtdqirl4326[address] [place], [place] [address]Dr. Farhat Leal Salmonella Not detected Normal NOT DETECTED [facility] Comment on above: Performed By: #### B CID2 ####[facility] Zshiawvwfv7[address] [place] [address]Dr. Farhat Leal Seratia marcescens Not detected Normal NOT DETECTED [facility] Comment on above: Performed By: #### B CID2 ####[facility] Ccggedroba710[address] [place], [place] [address]Dr. Farhat Leal Site: Rt Hand Normal [facility] Comment on above: Performed By: #### B CID2 ####[facility] Klgedyzbxt[address] [place] [address]Dr. Farhat Leal Staph. aureus Detected Abnormal NOT DETECTED [facility] Comment on above: Performed By: #### B CID2 ####[facility] Grtlztqzvy[address] [place], [place] [address]Dr. Farhat Leal Staph. epidermidis Not detected Normal NOT DETECTED [facility] Comment on above: Performed By: #### B CID2 ####[facility] H[address]wpawsvzl27[address] [place], [place] [address]Dr. Farhat Leal Staph. lugdunensis Not detected Normal NOT DETECTED [facility] Comment on above: Performed By: #### B CID2 ####[facility] Dcabiftwkz35[address] [place], [place] [address]Dr. Farhat Leal Staphylococcus Detected Abnormal NOT DETECTED [facility] Comment on above: Performed By: #### B CID2 ####[facility] U[address]swuqkiqo[address] [place], [place] [address]Dr. Farhat Leal Strep. agalactiae Not detected Normal NOT DETECTED [facility] Comment on above: Performed By: #### B CID2 ####[facility] Xitmxhjcwh6712[address] [place], [place] [address]Dr. Farhat Leal Strep. pneumoniae Not detected Normal NOT DETECTED [facility] Comment on above: Performed By: #### B CID2 ####[facility] Zctkphavwr7597[address] [place], [place] [address]Dr. Farhat Leal Strep. pyogenes Not detected Normal NOT DETECTED [facility] Comment on above: Performed By: #### B CID2 ####[facility] Xctzwntfkz[address] [place], [place] [address]Dr. Farhat Leal Streptococcus Not detected Normal NOT DETECTED [facility] Comment on above: Performed By: #### B CID2 ####[facility] Pnqlhvajvt[address] [place], [place] [address]Dr. Farhat Leal Teodoro/B Resist. Gene Not Applicable Normal NOT DETECTED [facility] Comment on above: Performed By: #### B CID2 ####[facility] Cmgnrwihad[address] [place], [place] [address]Dr. Farhat Leal VIM Resistant Gene Not Applicable Normal NOT DETECTED [facility] Comment on above: Performed By: #### B CID2 ####[facility] Yarxdorjrs[address] [place] [address]Dr. Farhat Leal BNPon 11-23-2021 Natriuretic peptide B (Bld) [Mass/Vol] 82490.0 pg/mL Critically high <=1,800.0 [facility] Comment on above: Performed By: #### C MP, CMADM, BNP ####[facility] Lkjifvregz[address] [place] [address]Dr. Farhat Leal CARDIAC AMANDA ADMITon 022 CK [Catalytic activity/Vol] 41 U/L Normal 39-308 [facility] Comment on above: Performed By: #### C MP, CMADM, BNP ####[facility] Sczfnmradq40[address] [place] [address]Dr. Farhat Leal CK.MB [Mass/Vol] 0.98 ng/mL Normal <=3.60 [facility] Comment on above: Performed By: #### C MP, CMADM, BNP ####[facility] Asyyrdavge[address] [place], [place] [address]Dr. Farhat Leal HSTROP 30.1 pg/mL Normal 4.0-76.1 [facility] Comment on above: Result Comment: CUT- OFF POINTS HAVE BEEN ESTABLISHED BASED ON THE FOURTH UNIVERSAL DEFINITIONS OF MYOCARDIALINFARCTION. THE UPPER REFERENCE LIMIT (URL) OF TROPONIN, DEFINED THE 99TH PERCENTILE OFcTnI DISTRIBUTION IN A REFERENCE POPULATION, HAS BEEN CONFIRMED THE DECISION THRESHOLDFOR UT DIAGNOSIS. Performed By: #### C MP, CMADM, BNP ####[facility] Nrjhetavoy[address] [place] [address]Dr. Farhat Leal VALERIA 160 ng/mL Critically high 16-96 [facility] Comment on above: Performed By: #### C MP, CMADM, BNP ####[facility] Kqlugnffqz50[address] [place] [address]Dr. Farhat Leal CBC AUTO DIFFon 11-23-2021 BASO # 0.0 103/ul Normal 0.0-0.1 [facility] Comment on above: Performed By: #### C BC ####[facility] Webatpjevj25[address] [place] [id number]. Farhat Leal Basophils/100 WBC (Bld) 0.2 % Normal 0.2-2.0 [facility] Comment on above: Performed By: #### C BC ####[facility] Nxfhnywagg028[address] [place] [phone]. Farhat Leal EO # 0.0 103/ul Normal 0.0-0.7 [facility] Comment on above: Performed By: #### C BC ####[facility] Dntwnjgvgp5971 [place] [phone]. Farhat Leal Eosinophils/100 WBC (Bld) 0.1 % Critically low 0.9-7.0 [facility] Comment on above: Performed By: #### C BC ####[facility] [address]tttsshzbz2[address] [place], [place] [address]Dr. Farhat Leal Erythrocyte distribution width (RBC) [Ratio] 13.4 % Normal 11.0-15.0 [facility] Comment on above: Performed By: #### C BC ####[facility] I[address]qfzte[address] [place], [place] [address]Dr. Farhat Leal Hematocrit (Bld) [Volume fraction] 31.6 % Critically low 42.0-54.0 [facility] Comment on above: Performed By: #### C BC ####[facility] X[address] [place], [place] [id number]. Farhat Leal Hemoglobin (Bld) [Mass/Vol] 10.4 g/dL Critically low 14.0-18.0 [facility] Comment on above: Performed By: #### C BC ####[facility] [address] [place], [place] [id number]. Farhat Leal IG # 0.11 10e3/ul Critically high 0.00-0.03 [facility] Comment on above: Performed By: #### C BC ####[facility] R[address]mfoxow[address] [place], [place] [id number]. Farhat Leal IG % 0.7 % Critically high 0.0-0.5 [facility] Comment on above: Performed By: #### C BC ####[facility] Ekmfmoivvq33[address] [place] [phone]. Farhat Leal LYMPH # 0.5 103/ul Critically low 1.2-3.8 [facility] Comment on above: Performed By: #### C BC ####[facility] Yleolrilpk55[address] [place] [phone]. Farhat Leal Lymphocytes/100 WBC (Bld) 2.8 % Critically low 20.5-60.0 [facility] Comment on above: Performed By: #### C BC ####[facility] Wgmbhpzbkm[address] [place] [address]Dr. Farhat Leal MANUAL DIFF REQ NO Normal [facility] Comment on above: Performed By: #### C BC ####[facility] Wtsuigulbo92[address] [place] [address]Dr. Farhat Leal MCH (RBC) [Entitic mass] 29.8 pg Normal 25.9-34.0 [facility] Comment on above: Performed By: #### C BC ####[facility] Plhguedrpd5[address] [place] [address]Dr. Farhat Leal MCHC (RBC) [Mass/Vol] 32.9 g/dL Normal 29.9-35.2 [facility] Comment on above: Performed By: #### C BC ####[facility] Iynahdkrmo5[address] [place] [phone]. Farhat Leal MCV (RBC) [Entitic vol] 90.5 fL Normal 80.0-94.0 [facility] Comment on above: Performed By: #### C BC ####[facility] Leaocdiksh9216 [place] [id number] Leal MONO # 1.3 103/ul Critically high 0.3-0.8 [facility] Comment on above: Performed By: #### C BC ####[facility] Usqubrjqar69[address] [place] [phone]. Farhat Leal Monocytes/100 WBC (Bld) 8.3 % Normal 1.7-12.0 [facility] Comment on above: Performed By: #### C BC ####[facility] Ocvakixopo39[address] [place] [phone]. Farhat Leal NEUT # 13.9 103/ul Critically high 1.4-6.5 [facility] Comment on above: Performed By: #### C BC ####[facility] Qvttjxstkp9738 [place] [phone]. Farhat Leal Neutrophils/100 WBC (Bld) 87.9 % Critically high 43.0-75.0 [facility] Comment on above: Performed By: #### C BC ####[facility] Gdkfgtehif[address] [place] [address]Dr. Farhat Leal Platelet mean volume (Bld) [Entitic vol] 9.3 fL Critically low 9.5-13.5 [facility] Comment on above: Performed By: #### C BC ####[facility] Wpxotnpzmb9624 [place] [phone]. Farhat Leal PLT 390 103/ul Normal 150-450 [facility] Comment on above: Performed By: #### C BC ####[facility] [address]ws[address] [place], [place] [address]Dr. Farhat Leal RBC 3.49 106/ul Critically low 4.70-6.10 [facility] Comment on above: Performed By: #### C BC ####[facility] Jghrgdmvtf8[address] [place] [phone]. Farhat Leal WBC 15.9 103/ul Critically high 4.0-11.0 [facility] Comment on above: Performed By: #### C BC ####[facility] Mqbicepoua[address] [place] [phone]. Farhat Leal CT HEAD WO CONon 11-23-2021 CT HEAD WO CON Normal [facility] CULTURE BLOODon 11-23-2021 Microscopic examination of blood, culture Culture Observations: NO GROWTH AT 5 DAYS. Normal [facility] Comment on above: Performed By: #### B LDCX2 ####[facility] Pcpdvpxuej[address] [place], [place] [address]Dr. Farhat Leal Covid-19 PCR (CVDTBH)on SARS-CoV-2 (COVID-19) RNA JOSH+probe Ql (Unsp spec) Not detected Normal NOT DETECTED [facility] Comment on above: Result Comment: When diagnostic [...] for this test is supported by the [place] of [employer] and Human Service's declaration that [...] be used). Performed By: #### C VDTBH ####[facility] Jstegxxqtx[address] [place], [place] [address]Dr. Farhat Leal LACTATE/LACTIC ACIDon 2021 Lactate [Moles/Vol] 1.3 mmol/L Normal 0.4-1.9 [facility] Comment on above: Performed By: #### L ACT ####[facility] Pyzleiymqr[address] [place], [place] [address]Dr. Farhat Leal Lactate [Moles/Vol] 1.3 mmol/L Normal 0.4-1.9 [facility] Comment on above: Performed By: #### L ACT ####[facility] Pfomknjoae8[address] [place], [place] [address]Dr. Farhat Leal POINT OF CARE GLUCOSEon Glucose [Mass/Vol] 252 mg/dL Critically high 74-106 [facility] Comment on above: Performed By: #### P OCGLUC ####[facility] Zognkdpkfd[address] [place] [address]Dr. Farhat Leal PROF 14(COMP METB)on 022 Albumin [Mass/Vol] 1.6 g/dL Critically low 3.4-5.0 [facility] Comment on above: Performed By: #### C MP, CMADM, BNP ####[facility] Zekymsilwd56[address] [place] [address]Dr. Farhat Leal Albumin/Globulin [Mass ratio] 0.4 {ratio} Normal [facility] Comment on above: Performed By: #### C MP, CMADM, BNP ####[facility] Caxjdzvwyc16[address] [place] [address]Dr. Farhat Leal ALP [Catalytic activity/Vol] 98 U/L Normal 46-116 [facility] Comment on above: Performed By: #### C MP, CMADM, BNP ####[facility] Legtlolgsn5[address] [place] [address]Dr. Farhta Leal ALT [Catalytic activity/Vol] 52 U/L Normal 16-63 [facility] Comment on above: Performed By: #### C MP, CMADM, BNP ####[facility] Rieklpcxok9710 [place] [address]Dr. Farhat Leal Anion gap [Moles/Vol] 9.8 mmol/L Normal [facility] Comment on above: Performed By: #### C MP, CMADM, BNP ####[facility] Tavnqpqoqm0278 [place] [address]Dr. Farhat Leal AST [Catalytic activity/Vol] 122 U/L Critically high 15-37 [facility] Comment on above: Performed By: #### C MP, CMADM, BNP ####[facility] Lswppibdzd2993 [place] [address]Dr. Farhat Leal Bilirubin [Mass/Vol] 0.7 mg/dL Normal 0.2-1.0 [facility] Comment on above: Performed By: #### C MP, CMADM, BNP ####[facility] Otcatlnzbo[address] [place] [address]Dr. Farhat Leal Calcium [Mass/Vol] 8.6 mg/dL Normal 8.5-10.[address] [facility] Comment on above: Performed By: #### C MP, CMADM, BNP ####[facility] Cjcwkujwgf4364 [place] [address]Dr. Farhat Leal Chloride [Moles/Vol] 95 mmol/L Critically low 98-107 [facility] Comment on above: Performed By: #### C MP, CMADM, BNP ####[facility] Gagldigswh8118 [place] [address]Dr. Farhat Leal CO2 [Moles/Vol] 29.6 mmol/L Normal 21.0-32.0 [facility] Comment on above: Performed By: #### C MP, CMADM, BNP ####[facility] Ewylkwelia7[address] [place], [place] [address]Dr. Farhat Leal Creatinine [Mass/Vol] 1.49 mg/dL Critically high 0.70-1.30 [facility] Comment on above: Performed By: #### C MP, CMADM, BNP ####[facility] Zzkizgeddb7713[address] [place], [place] [address]Dr. Farhat Leal EGFR-AF BRITISH 55 mL/min/1.73m2 Critically low >=60 [facility] Comment on above: Performed By: #### C MP, CMADM, BNP ####[facility] Rxosthdphq37[address] [place], [place] [address]Dr. Farhat Leal EGFR-NON AF BRITISH 46 mL/min/1.73m2 Critically low >=60 [facility] Comment on above: Performed By: #### C MP, CMADM, BNP ####[facility] Yoairxjkke3217 [place] [address]Dr. Farhat Leal Globulin (S) [Mass/Vol] 4.3 g/dL Normal [facility] Comment on above: Performed By: #### C MP, CMADM, BNP ####[facility] Oxxjscpdve5077 [place] [address]Dr. Farhat Leal Glucose [Mass/Vol] 213 mg/dL Critically high 74-106 [facility] Comment on above: Performed By: #### C MP, CMADM, BNP ####[facility] Mfopuzvjbg36[address] [place] [address]Dr. Farhat Leal Potassium [Moles/Vol] 4.4 mmol/L Normal 3.5-5.1 [facility] Comment on above: Performed By: #### C MP, CMADM, BNP ####[facility] Bsbuehfmhb3376 [place] [address]Dr. Farhat Leal Protein [Mass/Vol] 5.9 g/dL Critically low 6.4-8.2 [facility] Comment on above: Performed By: #### C MP, CMADM, BNP ####[facility] Fhgxszkhbh4976 [place] [address]Dr. Farhat Leal Sodium [Moles/Vol] 130 mmol/L Critically low 136-145 [facility] Comment on above: Performed By: #### C MP, CMADM, BNP ####[facility] Lycdagpxea9632[address] [place], [place] [address]Dr. Farhat Leal Urea nitrogen [Mass/Vol] 46.0 mg/dL Critically high 7.0-18.0 [facility] Comment on above: Performed By: #### C MP, CMADM, BNP ####[facility] Djunxklazs7732[address] [place], [place] [address]Dr. Farhat Leal Urea nitrogen/Creatinine [Mass ratio] 30.9 mg/mg Normal [facility] Comment on above: Performed By: #### C MP, CMADM, BNP ####[facility] Csutslotsv069[address] [place], [place] [address]Dr. Madelynlorri Leal PROTIMEon 11-23-2021 INR Coag (PPP) [Relative time] 2.55 {INR} Normal [facility] Comment on above: Performed By: #### P TT, PT ####[facility] Robysevdbr20[address] [place], [place] [address]Dr. Farhat Leal INR GUIDELINES SEE BELOW Normal [facility] Comment on above: Result Comment: MALINA RED INR: 2.0 - 3.0 CONDITIONS NOT LISTED BELOW 2.5 - 3.5 FOR PROSTHETIC HEART VALVE REPLACEMENT 2.5 - 3.5 RECURRENT THROMBOSIS Performed By: #### P TT, PT ####[facility] Gdtvfrtugr5520 [place] [phone]. Farhat Leal PT Coag (PPP) [Time] 25.9 s Critically high 9.0-11.6 [facility] Comment on above: Performed By: #### P TT, PT ####[facility] Homotexend[address] [place], [place] [id number]. Farhat Leal PTTon 11-23-2021 aPTT Coag (Bld) [Time] 39.9 s Critically high 22.3-36. 2 [facility] Comment on above: Performed By: #### P TT, PT ####[facility] Awqnqknboy238238 [address] [place], [place] [address]Dr. Farhat Leal XR CHEST 1 Von 11-23-2021 XR CHEST 1 V Normal [facility] XR HEEL RT 2Von 11-23-2021 XR HEEL RT 2V Normal [facility] XR FOOT RT MIN 3 VIEWSon XR FOOT RT MIN 3 VIEWS Normal [facility] US ARTERY LEG RTon US ARTERY LEG RT Normal [facility] CBC AUTO DIFFon 09-24-2021 BASO # 0.1 103/ul Normal 0.0-0.1 [facility] Comment on above: Performed By: #### C BC ####[facility] Vfdighkocj8870[address] [place], [place] [address]Dr. Farhat Elvis Basophils/100 WBC (Bld) 0.7 % Normal 0.2-2.0 [facility] Comment on above: Performed By: #### C BC ####[facility] Zkkuchyhwy1911[address] [place], [place] [address]Dr. Farhat Elvis EO # 0.3 103/ul Normal 0.0-0.7 [facility] Comment on above: Performed By: #### C BC ####[facility] Xfqneyzkrh554[address] [place], [place] [address]Dr. Farhat Elvis Eosinophils/100 WBC (Bld) 3.9 % Normal 0.9-7.0 [facility] Comment on above: Performed By: #### C BC ####[facility] Arygeehpqg6883 [place] [address]Dr. Farhat Leal Erythrocyte distribution width (RBC) [Ratio] 12.6 % Normal 11.0-15.0 [facility] Comment on above: Performed By: #### C BC ####[facility] Tmxhbvsydt6467 [place] [address]Dr. Farhat Leal Hematocrit (Bld) [Volume fraction] 38.9 % Critically low 42.0-54.0 [facility] Comment on above: Performed By: #### C BC ####[facility] Xmqtfyuhmb8216[address] [place], [place] [address]Dr. Farhat Leal Hemoglobin (Bld) [Mass/Vol] 12.8 g/dL Critically low 14.0-18.0 [facility] Comment on above: Performed By: #### C BC ####[facility] Vqlyfictfd5594[address] [place], [place] [address]Dr. Farhat Leal IG # 0.10 10e3/ul Critically high 0.00-0.03 [facility] Comment on above: Performed By: #### C BC ####[facility] Zojfcoscqq647[address] [place], [place] [address]Dr. Farhat Leal IG % 1.2 % Critically high 0.0-0.5 [facility] Comment on above: Performed By: #### C BC ####[facility] Rtycosoqdx619[address] [place], [place] [address]Dr. Farhat Leal LYMPH # 2.1 103/ul Normal 1.2-3.8 [facility] Comment on above: Performed By: #### C BC ####[facility] Ntiuanqkzg7829[address] [place], [place] [address]Dr. Farhat Leal Lymphocytes/100 WBC (Bld) 25.9 % Normal 20.5-60.0 [facility] Comment on above: Performed By: #### C BC ####[facility] Bndktwnaht[address]26[address] [place], [place] [address]Dr. Farhat Leal MANUAL DIFF REQ NO Normal [facility] Comment on above: Performed By: #### C BC ####[facility] Kwbzirrqgc6458 [place] [phone]. Farhat Leal MCH (RBC) [Entitic mass] 31.1 pg Normal 25.9-34.0 [facility] Comment on above: Performed By: #### C BC ####[facility] Lbpgvqdoks3006 [place] [phone]. Farhat Leal MCHC (RBC) [Mass/Vol] 32.9 g/dL Normal 29.9-35.2 [facility] Comment on above: Performed By: #### C BC ####[facility] Tvjaxaynve4809 [place] [address]Dr. Farhat Elvis MCV (RBC) [Entitic vol] 94.6 fL Critically high 80.0-94.0 [facility] Comment on above: Performed By: #### C BC ####[facility] Jdjidimuzq[address] [place], [place] [address]Dr. Farhat Leal MONO # 1.2 103/ul Critically high 0.3-0.8 [facility] Comment on above: Performed By: #### C BC ####[facility] Bnclnlkfxb[address] [place], [place] [address]Dr. Madelynlorri Leal Monocytes/100 WBC (Bld) 14.1 % Critically high 1.7-12.0 [facility] Comment on above: Performed By: #### C BC ####[facility] Ovkmoelqtk67[address] [place], [place] [address]Dr. Madelynlorri Leal NEUT # 4.4 103/ul Normal 1.4-6.5 [facility] Comment on above: Performed By: #### C BC ####[facility] Mxwoowundj5[address] [place], [place] [address]Dr. Farhat Leal Neutrophils/100 WBC (Bld) 54.2 % Normal 43.0-75.0 [facility] Comment on above: Performed By: #### C BC ####[facility] Kelhizdlbr[address] [place], [place] [address]Dr. Farhat Leal Platelet mean volume (Bld) [Entitic vol] 9.9 fL Normal 9.5-13.5 [facility] Comment on above: Performed By: #### C BC ####[facility] Wlporzemaj29[address] [place] [phone]. Farhat Elvis PLT 224 103/ul Normal 150-450 [facility] Comment on above: Performed By: #### C BC ####[facility] Sgubhqknte0130 [place] [phone]. Madelynlorri Elvis RBC 4.11 106/ul Critically low 4.70-6.10 [facility] Comment on above: Performed By: #### C BC ####[facility] Tnzkqrqmvz7475 [place] [phone]. Farhat Leal WBC 8.2 103/ul Normal 4.0-11.0 [facility] Comment on above: Performed By: #### C BC ####[facility] Apgztzpdcq3456 [place] [address]Dr. Farhat Leal PROF CHEM 8 (BAS METB)on Anion gap [Moles/Vol] 9.6 mmol/L Normal [facility] Comment on above: Performed By: #### B MP ####[facility] Uehfhtijap0004 [place] [phone]. Farhat Leal Calcium [Mass/Vol] 8.6 mg/dL Normal 8.5-10.[address] [facility] Comment on above: Performed By: #### B MP ####[facility] Xyrnowgzdm4955 [place] [phone]. Farhat Leal Chloride [Moles/Vol] 94 mmol/L Critically low 98-107 [facility] Comment on above: Performed By: #### B MP ####[facility] Edvqpsidtq3454 [place] [phone]. Farhat Leal CO2 [Moles/Vol] 28.1 mmol/L Normal 21.0-32.0 [facility] Comment on above: Performed By: #### B MP ####[facility] Hzzijjzysv4185 [place] [phone]. Farhat Leal Creatinine [Mass/Vol] 1.91 mg/dL Critically high 0.70-1.30 [facility] Comment on above: Performed By: #### B MP ####[facility] Bvickqxsni9135 [place] [phone]. Farhat Leal EGFR-AF BRITISH 42 mL/min/1.73m2 Critically low >=60 [facility] Comment on above: Performed By: #### B MP ####[facility] Vdgkceglev2422 [place] [phone]. Farhat Leal EGFR-NON AF BRITISH 34 mL/min/1.73m2 Critically low >=60 [facility] Comment on above: Performed By: #### B MP ####[facility] Vlcfmkurlh2017 [place] [phone]. Farhat Leal Glucose [Mass/Vol] 314 mg/dL Critically high 74-106 [facility] Comment on above: Performed By: #### B MP ####[facility] Aezuupjtdj3104 [place] [address]Dr. Farhat Leal Potassium [Moles/Vol] 4.7 mmol/L Normal 3.5-5.1 [facility] Comment on above: Performed By: #### B MP ####[facility] Jrmckjqfzf22[address] [place], [place] [address]Dr. Farhat Leal Sodium [Moles/Vol] 127 mmol/L Critically low 136-145 [facility] Comment on above: Performed By: #### B MP ####[facility] Ubfmhgremx8827 [place] [phone]. Farhat Leal Urea nitrogen [Mass/Vol] 79.0 mg/dL Critically high 7.0-18.0 [facility] Comment on above: Result Comment: repe ated Performed By: #### B MP ####[facility] Pgdpunvmsh5522 [place] [address]Dr. Farhat Leal Urea nitrogen/Creatinine [Mass ratio] 41.4 mg/mg Normal [facility] Comment on above: Performed By: #### B MP ####[facility] Cljjnyupcg5190 [place] [phone]. Farhat Leal PTT HEPARIN MONITORon 2021 aPTT Coag (Bld) [Time] 42.7 s Normal 39.5-54.2 [facility] Comment on above: Performed By: #### P TTHEP ####[facility] Jkuwnthvre9546[address] [place], [place] [address]Dr. Farhat Leal aPTT Coag (Bld) [Time] 56.7 s Critically high 39.5-54. 2 [facility] Comment on above: Performed By: #### P TTHEP ####[facility] Mpsjjvbyoy[address] [place], [place] [address]Dr. Farhat Elvis CBC AUTO DIFFon 09-23-2021 BASO # 0.1 103/ul Normal 0.0-0.1 [facility] Comment on above: Performed By: #### C BC ####[facility] Svdbtjmdrn70[address] [place], [place] [address]Dr. Farhat Leal Basophils/100 WBC (Bld) 0.6 % Normal 0.2-2.0 [facility] Comment on above: Performed By: #### C BC ####[facility] Sutuiinaqa00[address] [place], [place] [address]Dr. Farhat Elvis EO # 0.2 103/ul Normal 0.0-0.7 [facility] Comment on above: Performed By: #### C BC ####[facility] Fyuutvvssz87[address] [place], [place] [address]Dr. Farhat Leal Eosinophils/100 WBC (Bld) 2.6 % Normal 0.9-7.0 [facility] Comment on above: Performed By: #### C BC ####[facility] Bnidtwtizc15[address] [place], [place] [address]Dr. Farhat Leal Erythrocyte distribution width (RBC) [Ratio] 12.4 % Normal 11.0-15.0 [facility] Comment on above: Performed By: #### C BC ####[facility] Bwszioxxlv4665[address] [place], [place] [address]Dr. Farhat Leal Hematocrit (Bld) [Volume fraction] 38.4 % Critically low 42.0-54.0 [facility] Comment on above: Performed By: #### C BC ####[facility] Goejfvpjwq3111 [place] [phone]. Farhat Leal Hemoglobin (Bld) [Mass/Vol] 12.8 g/dL Critically low 14.0-18.0 [facility] Comment on above: Performed By: #### C BC ####[facility] Jljcfqosmf6627 [place] [phone]. Farhat Leal IG # 0.06 10e3/ul Critically high 0.00-0.03 [facility] Comment on above: Performed By: #### C BC ####[facility] Btyhfpbhup8917 [place] [address]Dr. Farhat Leal IG % 0.8 % Critically high 0.0-0.5 [facility] Comment on above: Performed By: #### C BC ####[facility] Covaxaedjb6134[address] [place], [place] [address]Dr. Farhat Leal LYMPH # 1.5 103/ul Normal 1.2-3.8 [facility] Comment on above: Performed By: #### C BC ####[facility] Pgszubgpwy1310 [place] [address]Dr. Farhat Leal Lymphocytes/100 WBC (Bld) 19.7 % Critically low 20.5-60.0 [facility] Comment on above: Performed By: #### C BC ####[facility] Uvogazqxdl0054 [place] [address]Dr. Farhat Leal MANUAL DIFF REQ NO Normal [facility] Comment on above: Performed By: #### C BC ####[facility] [address]sp[address]tr[address] [place], [place] [phone]. Farhat Leal MCH (RBC) [Entitic mass] 31.6 pg Normal 25.9-34.0 [facility] Comment on above: Performed By: #### C BC ####[facility] Jdbtbnotap[address] [place], [place] [address]Dr. Farhat Leal MCHC (RBC) [Mass/Vol] 33.3 g/dL Normal 29.9-35.2 [facility] Comment on above: Performed By: #### C BC ####[facility] Lyvshokmtt3330 [place] [phone]. Farhat Leal MCV (RBC) [Entitic vol] 94.8 fL Critically high 80.0-94.0 [facility] Comment on above: Performed By: #### C BC ####[facility] Drchgeprfb4652 [place] [phone]. Farhat Leal MONO # 1.0 103/ul Critically high 0.3-0.8 [facility] Comment on above: Performed By: #### C BC ####[facility] Aqwuccchuj7471 [place] [address]Dr. Farhat Leal Monocytes/100 WBC (Bld) 13.0 % Critically high 1.7-12.0 [facility] Comment on above: Performed By: #### C BC ####[facility] Tytaunrwqa54[address] [place], [place] [address]Dr. Farhat Leal NEUT # 4.9 103/ul Normal 1.4-6.5 [facility] Comment on above: Performed By: #### C BC ####[facility] [address]uimvti[address] [place], [place] [phone]. Farhat Leal Neutrophils/100 WBC (Bld) 63.3 % Normal 43.0-75.0 [facility] Comment on above: Performed By: #### C BC ####[facility] Pglyjmdyzd7[address] [place], [place] [address]Dr. Farhat Leal Platelet mean volume (Bld) [Entitic vol] 10.7 fL Normal 9.5-13.5 [facility] Comment on above: Performed By: #### C BC ####[facility] Scqwqsmisn2446 [place] [phone]. Farhat Leal PLT 205 103/ul Normal 150-450 [facility] Comment on above: Performed By: #### C BC ####[facility] Dnpyvodmgy5339 [place] [phone]. Farhat Elvis RBC 4.05 106/ul Critically low 4.70-6.10 [facility] Comment on above: Performed By: #### C BC ####[facility] Juprwevsww4048 [place] [phone]. Farhat Elvis WBC 7.7 103/ul Normal 4.0-11.0 [facility] Comment on above: Performed By: #### C BC ####[facility] Doqnncskod6727 [place] [phone]. Farhat Leal PROF CHEM 8 (BAS METB)on Anion gap [Moles/Vol] 15.5 mmol/L Normal [facility] Comment on above: Performed By: #### B MP ####[facility] Bldoexkcuw5065 [place] [phone]. Farhat Leal Calcium [Mass/Vol] 9.1 mg/dL Normal 8.5-10.[address] [facility] Comment on above: Performed By: #### B MP ####[facility] Soiwpdqvxo[address] [place], [place] [address]Dr. Farhat Leal Chloride [Moles/Vol] 92 mmol/L Critically low 98-107 [facility] Comment on above: Performed By: #### B MP ####[facility] Duqjjbamev4772 [place] [address]Dr. Madelynlorri Leal CO2 [Moles/Vol] 28.5 mmol/L Normal 21.0-32.0 [facility] Comment on above: Performed By: #### B MP ####[facility] Xayqanxzbg9786 [place] [address]Dr. Farhat Leal Creatinine [Mass/Vol] 1.84 mg/dL Critically high 0.70-1.30 [facility] Comment on above: Performed By: #### B MP ####[facility] Etkcsttmwl3596 [place] [phone]. Farhat Leal EGFR-AF BRITISH 44 mL/min/1.73m2 Critically low >=60 [facility] Comment on above: Performed By: #### B MP ####[facility] Sxmlttyqwg7681 [place] [address]Dr. Farhat Leal EGFR-NON AF BRITISH 36 mL/min/1.73m2 Critically low >=60 [facility] Comment on above: Performed By: #### B MP ####[facility] Sevzikvfuh6523 [place] [address]Dr. Farhat Leal Glucose [Mass/Vol] 267 mg/dL Critically high 74-106 [facility] Comment on above: Performed By: #### B MP ####[facility] Rqkavaaipx3106 [place] [address]Dr. Madelynlorri Elvis Potassium [Moles/Vol] 5.0 mmol/L Normal 3.5-5.1 [facility] Comment on above: Performed By: #### B MP ####[facility] Vvayyoggai13[address] [place], [place] [address]Dr. Farhat Leal Sodium [Moles/Vol] 131 mmol/L Critically low 136-145 [facility] Comment on above: Performed By: #### B MP ####[facility] Pvclvfteoi[address] [place], [place] [address]Dr. Farhat Leal Urea nitrogen [Mass/Vol] 76.0 mg/dL Critically high 7.0-18.0 [facility] Comment on above: Performed By: #### B MP ####[facility] Fygjqpoghi[address] [place], [place] [address]Dr. Madelynlorri Elvis Urea nitrogen/Creatinine [Mass ratio] 41.3 mg/mg Normal [facility] Comment on above: Performed By: #### B MP ####[facility] Ndjquarqxy8[address] [place], [place] [address]Dr. Farhat Leal PTT HEPARIN MONITORon 2021 aPTT Coag (Bld) [Time] 57.2 s Critically high 39.5-54. 2 [facility] Comment on above: Performed By: #### P TTHEP ####[facility] Y[address]olefvkfw[address] [place], [place] [address]Dr. Farhat Leal aPTT Coag (Bld) [Time] 74.7 s Critically high 39.5-54. 2 [facility] Comment on above: Result Comment: repe ated Performed By: #### P TTHEP ####[facility] Bxvhmmtgjf[address] [place], [place] [address]Dr. Farhat Leal aPTT Coag (Bld) [Time] 45.5 s Normal 39.5-54.2 Th e [facility] Comment on above: Performed By: #### P TTHEP ####[facility] Zuhniukwrf[address] [place] [address]Dr. Farhat Leal CBC AUTO DIFFon 09-22-2021 BASO # 0.1 103/ul Normal 0.0-0.1 [facility] Comment on above: Performed By: #### C BC ####[facility] Rwmkqerjst6[address] [place] [address]Dr. Farhat Leal Basophils/100 WBC (Bld) 0.7 % Normal 0.2-2.0 [facility] Comment on above: Performed By: #### C BC ####[facility] Cryklcexll[address] [place] [address]Dr. Farhat Leal EO # 0.3 103/ul Normal 0.0-0.7 [facility] Comment on above: Performed By: #### C BC ####[facility] Atpthqtxpt6[address] [place] [address]Dr. Farhat Leal Eosinophils/100 WBC (Bld) 3.2 % Normal 0.9-7.0 [facility] Comment on above: Performed By: #### C BC ####[facility] Yzmrhreshy[address] [place] [address]Dr. Farhat Leal Erythrocyte distribution width (RBC) [Ratio] 12.5 % Normal 11.0-15.0 [facility] Comment on above: Performed By: #### C BC ####[facility] Cmtgjutmxz3[address] [place] [address]Dr. Farhat Leal Hematocrit (Bld) [Volume fraction] 40.5 % Critically low 42.0-54.0 [facility] Comment on above: Performed By: #### C BC ####[facility] Rqonogwxjq[address] [place], [place] [address]Dr. Farhat Leal Hemoglobin (Bld) [Mass/Vol] 13.4 g/dL Critically low 14.0-18.0 [facility] Comment on above: Performed By: #### C BC ####[facility] Ksujfrbsru14[address] [place] [phone]. Farhat Leal IG # 0.11 10e3/ul Critically high 0.00-0.03 [facility] Comment on above: Performed By: #### C BC ####[facility] Jyeavhvpaz44[address] [place] [phone]. Farhat Leal IG % 1.3 % Critically high 0.0-0.5 [facility] Comment on above: Performed By: #### C BC ####[facility] Lfyboqezom25[address] [place] [address]Dr. Farhat Elvis LYMPH # 1.7 103/ul Normal 1.2-3.8 [facility] Comment on above: Performed By: #### C BC ####[facility] Uygeiuglkm7[address] [place] [address]Dr. Farhat Leal Lymphocytes/100 WBC (Bld) 19.6 % Critically low 20.5-60.0 [facility] Comment on above: Performed By: #### C BC ####[facility] Waqvyfnplk5654 [place] [phone]. Madelynlorri Leal MANUAL DIFF REQ NO Normal [facility] Comment on above: Performed By: #### C BC ####[facility] Oyewafxkpi4560 [place] [phone]. Farhat Elvis MCH (RBC) [Entitic mass] 31.1 pg Normal 25.9-34.0 [facility] Comment on above: Performed By: #### C BC ####[facility] Xzypdybodh3092 [place] [phone]. Farhat Elvis MCHC (RBC) [Mass/Vol] 33.1 g/dL Normal 29.9-35.2 [facility] Comment on above: Performed By: #### C BC ####[facility] Vmombulqgj4083 [place] [phone]. Farhat Elvis MCV (RBC) [Entitic vol] 94.0 fL Normal 80.0-94.0 [facility] Comment on above: Performed By: #### C BC ####[facility] Zkxodickrz0548 [place] [phone]. Farhat Leal MONO # 1.1 103/ul Critically high 0.3-0.8 [facility] Comment on above: Performed By: #### C BC ####[facility] Biqwcjmscz1086 [place] [phone]. Farhat Leal Monocytes/100 WBC (Bld) 12.7 % Critically high 1.7-12.0 [facility] Comment on above: Performed By: #### C BC ####[facility] Zgqkajloyd6653 [place] [phone]. Farhat Leal NEUT # 5.3 103/ul Normal 1.4-6.5 [facility] Comment on above: Performed By: #### C BC ####[facility] Sjfzgpixnw9154 [place] [address]Dr. Farhat Leal Neutrophils/100 WBC (Bld) 62.5 % Normal 43.0-75.0 [facility] Comment on above: Performed By: #### C BC ####[facility] Wlfrukwalq0480 [place] [phone]. Farhat Leal Platelet mean volume (Bld) [Entitic vol] 10.1 fL Normal 9.5-13.5 [facility] Comment on above: Performed By: #### C BC ####[facility] Ywyyirfqxq9521 [place] [phone]. Farhat Leal PLT 220 103/ul Normal 150-450 [facility] Comment on above: Performed By: #### C BC ####[facility] Trwluhrdun[address] [place] [phone]. Farhat Leal RBC 4.31 106/ul Critically low 4.70-6.10 [facility] Comment on above: Performed By: #### C BC ####[facility] Crtcfyodfw2116 [place] [phone]. Farhat Leal WBC 8.4 103/ul Normal 4.0-11.0 [facility] Comment on above: Performed By: #### C BC ####[facility] Apjdnetoll1302 [place] [phone]. Farhat Leal PROF CHEM 8 (BAS METB)on Anion gap [Moles/Vol] 15.5 mmol/L Normal [facility] Comment on above: Performed By: #### B MP ####[facility] Pjzbejmadb7826 [place] [phone]. Farhat Leal Calcium [Mass/Vol] 8.9 mg/dL Normal 8.5-10.[address] [facility] Comment on above: Performed By: #### B MP ####[facility] Ychummhxpq3859 [place] [address]Dr. Farhat Leal Chloride [Moles/Vol] 92 mmol/L Critically low 98-107 [facility] Comment on above: Performed By: #### B MP ####[facility] Fsdicsnglo8324[address] [place], [place] [address]Dr. Farhat Leal CO2 [Moles/Vol] 25.7 mmol/L Normal 21.0-32.0 [facility] Comment on above: Performed By: #### B MP ####[facility] Tkdundrjhq65[address] [place], [place] [address]Dr. Farhat Leal Creatinine [Mass/Vol] 1.85 mg/dL Critically high 0.70-1.30 [facility] Comment on above: Performed By: #### B MP ####[facility] Vhlfvyhqeg8160 [place] [address]Dr. Farhat Leal EGFR-AF BRITISH 43 mL/min/1.73m2 Critically low >=60 [facility] Comment on above: Performed By: #### B MP ####[facility] Nxwdfnirft3624 [place] [phone]. Farhat Leal EGFR-NON AF BRITISH 36 mL/min/1.73m2 Critically low >=60 [facility] Comment on above: Performed By: #### B MP ####[facility] Jgevfgtxdn3989 [place] [address]Dr. Farhat Leal Glucose [Mass/Vol] 410 mg/dL Critically high 74-106 [facility] Comment on above: Performed By: #### B MP ####[facility] Xqnlnmzzuk6414[address] [place], [place] [address]Dr. Farhat Elvis Potassium [Moles/Vol] 5.2 mmol/L Critically high 3.5-5.1 [facility] Comment on above: Performed By: #### B MP ####[facility] Ehngyetczw0986[address] [place], [place] [address]Dr. Madelynlorri Elvis Sodium [Moles/Vol] 128 mmol/L Critically low 136-145 [facility] Comment on above: Performed By: #### B MP ####[facility] Qlunuxfbed1744[address] [place], [place] [address]Dr. Madelynlorri Elvis Urea nitrogen [Mass/Vol] 75.0 mg/dL Critically high 7.0-18.0 [facility] Comment on above: Performed By: #### B MP ####[facility] Tcjhtnoduo8189[address] [place], [place] [address]Dr. Farhat Leal Urea nitrogen/Creatinine [Mass ratio] 40.5 mg/mg Normal [facility] Comment on above: Performed By: #### B MP ####[facility] Wiqmhvslmm6736[address] [place], [place] [address]Dr. Farhat Elvis PTT HEPARIN MONITORon 2021 aPTT Coag (Bld) [Time] 51.2 s Normal 39.5-54.2 [facility] Comment on above: Performed By: #### P TTHEP ####[facility] Mtvkjiztkb2706[address] [place], [place] [address]Dr. Madelynlorri Elvis aPTT Coag (Bld) [Time] 55.6 s Critically high 39.5-54. 2 [facility] Comment on above: Performed By: #### P TTHEP ####[facility] Pjhdtrjbrv34[address] [place], [place] [address]Dr. Madelynlorri Elvis aPTT Coag (Bld) [Time] 46.1 s Normal 39.5-54.2 [facility] Comment on above: Performed By: #### P TTHEP ####[facility] Kzfsixlfyl2118[address] [place], [place] [address]Dr. Farhat Leal aPTT Coag (Bld) [Time] 53.8 s Normal 39.5-54.2 Th e [facility] Comment on above: Performed By: #### P TTHEP ####[facility] Whnbxkupdu[address] [place], [place] [address]Dr. Farhat Leal CBC AUTO DIFFon 09-21-2021 BASO # 0.1 103/ul Normal 0.0-0.1 [facility] Comment on above: Performed By: #### C BC ####[facility] Wzhchjauxb8[address] [place], [place] [address]Dr. Farhat Leal Basophils/100 WBC (Bld) 0.8 % Normal 0.2-2.0 [facility] Comment on above: Performed By: #### C BC ####[facility] Spvwrjhdij[address] [place], [place] [address]Dr. Farhat Leal EO # 0.4 103/ul Normal 0.0-0.7 [facility] Comment on above: Performed By: #### C BC ####[facility] Ohuogzcozs58[address] [place], [place] [address]Dr. Farhat Leal Eosinophils/100 WBC (Bld) 4.3 % Normal 0.9-7.0 [facility] Comment on above: Performed By: #### C BC ####[facility] Hvqfduhycg380[address] [place], [place] [address]Dr. Farhat Leal Erythrocyte distribution width (RBC) [Ratio] 12.5 % Normal 11.0-15.0 [facility] Comment on above: Performed By: #### C BC ####[facility] Xomiviwsli5[address] [place], [place] [address]Dr. Farhat Lela Hematocrit (Bld) [Volume fraction] 40.8 % Critically low 42.0-54.0 [facility] Comment on above: Performed By: #### C BC ####[facility] Ceigdpjbkr105[address] [place], [place] [address]Dr. Farhat Leal Hemoglobin (Bld) [Mass/Vol] 13.5 g/dL Critically low 14.0-18.0 [facility] Comment on above: Performed By: #### C BC ####[facility] Vridylktcl6695 [place] [phone]. Madelynlorri Leal IG # 0.10 10e3/ul Critically high 0.00-0.03 [facility] Comment on above: Performed By: #### C BC ####[facility] Fcqfkzkgmy0306 [place] [phone]. Farhat Leal IG % 1.2 % Critically high 0.0-0.5 [facility] Comment on above: Performed By: #### C BC ####[facility] Ydirkgxvsn9660 [place] [address]Dr. Farhat Leal LYMPH # 1.3 103/ul Normal 1.2-3.8 [facility] Comment on above: Performed By: #### C BC ####[facility] Qzuobudrjc0674 [place] [address]Dr. Farhat Leal Lymphocytes/100 WBC (Bld) 15.4 % Critically low 20.5-60.0 [facility] Comment on above: Performed By: #### C BC ####[facility] Bhimvftdrh0608 [place] [address]Dr. Farhat Leal MANUAL DIFF REQ NO Normal [facility] Comment on above: Performed By: #### C BC ####[facility] Vthllpuptd4569 [place] [address]Dr. Farhat Leal MCH (RBC) [Entitic mass] 31.0 pg Normal 25.9-34.0 [facility] Comment on above: Performed By: #### C BC ####[facility] Vvfqaootdv1372 [place] [phone]. Farhat Leal MCHC (RBC) [Mass/Vol] 33.1 g/dL Normal 29.9-35.2 [facility] Comment on above: Performed By: #### C BC ####[facility] Jdzvkrxnze7498 [place] [phone]. Farhat Leal MCV (RBC) [Entitic vol] 93.8 fL Normal 80.0-94.0 [facility] Comment on above: Performed By: #### C BC ####[facility] Hqluexdbdp9885 [place] [phone]. Farhat Leal MONO # 1.2 103/ul Critically high 0.3-0.8 [facility] Comment on above: Performed By: #### C BC ####[facility] Eizrpropvl4945 [place] [phone]. Farhat Leal Monocytes/100 WBC (Bld) 13.6 % Critically high 1.7-12.0 [facility] Comment on above: Performed By: #### C BC ####[facility] Pyzuwnycvf4671 [place] [phone]. Farhat Leal NEUT # 5.5 103/ul Normal 1.4-6.5 [facility] Comment on above: Performed By: #### C BC ####[facility] Hzqdcvvzni0702 [place] [address]Dr. Farhat Leal Neutrophils/100 WBC (Bld) 64.7 % Normal 43.0-75.0 [facility] Comment on above: Performed By: #### C BC ####[facility] Yekbzefubt4850 [place] [phone]. Farhat Leal Platelet mean volume (Bld) [Entitic vol] 9.8 fL Normal 9.5-13.5 [facility] Comment on above: Performed By: #### C BC ####[facility] Irfgcqatvi4673 [place] [phone]. Farhat Leal PLT 206 103/ul Normal 150-450 [facility] Comment on above: Performed By: #### C BC ####[facility] Kbewrxcthz8210 [place] [phone]. Farhat Leal RBC 4.35 106/ul Critically low 4.70-6.10 [facility] Comment on above: Performed By: #### C BC ####[facility] Wqhjseguok8958 [place] [phone]. Farhat Leal WBC 8.4 103/ul Normal 4.0-11.0 [facility] Comment on above: Performed By: #### C BC ####[facility] Ucbbnyxdfr3698 [place] [address]Dr. Farhat Leal PROF CHEM 8 (BAS METB)on Anion gap [Moles/Vol] 12.3 mmol/L Normal [facility] Comment on above: Performed By: #### B MP ####[facility] Spehpfqwdv6068 [place] [address]Dr. Farhat Leal Calcium [Mass/Vol] 8.6 mg/dL Normal 8.5-10.[address] [facility] Comment on above: Performed By: #### B MP ####[facility] Loubtwbfxe3657[address] [place], [place] [address]Dr. Farhat Leal Chloride [Moles/Vol] 94 mmol/L Critically low 98-107 [facility] Comment on above: Performed By: #### B MP ####[facility] Vfmfwsleyo6025[address] [place], [place] [address]Dr. Farhat Leal CO2 [Moles/Vol] 30.8 mmol/L Normal 21.0-32.0 [facility] Comment on above: Performed By: #### B MP ####[facility] Dtasqgyavc9947[address] [place], [place] [address]Dr. Farhat Leal Creatinine [Mass/Vol] 1.99 mg/dL Critically high 0.70-1.30 [facility] Comment on above: Performed By: #### B MP ####[facility] Kxoxyjpmkl6094[address] [place], [place] [address]Dr. Farhat Leal EGFR-AF BRITISH 40 mL/min/1.73m2 Critically low >=60 [facility] Comment on above: Performed By: #### B MP ####[facility] Ofqdjoeanp315[address] [place], [place] [address]Dr. Farhat Leal EGFR-NON AF BRITISH 33 mL/min/1.73m2 Critically low >=60 [facility] Comment on above: Performed By: #### B MP ####[facility] Xlxzhnvyab9576[address] [place], [place] [address]Dr. Farhat Leal Glucose [Mass/Vol] 264 mg/dL Critically high 74-106 [facility] Comment on above: Performed By: #### B MP ####[facility] Rpaurylmfh0156[address] [place], [place] [address]Dr. Madelynlorri Elvis Potassium [Moles/Vol] 5.1 mmol/L Normal 3.5-5.1 [facility] Comment on above: Performed By: #### B MP ####[facility] Qqjmfjsjyf870[address] [place], [place] [address]Dr. Farhat Leal Sodium [Moles/Vol] 132 mmol/L Critically low 136-145 [facility] Comment on above: Performed By: #### B MP ####[facility] Cywvtkrxzi7475[address] [place], [place] [address]Dr. Madelynlorri Elvis Urea nitrogen [Mass/Vol] 72.0 mg/dL Critically high 7.0-18.0 [facility] Comment on above: Performed By: #### B MP ####[facility] Kptnsprdpb212[address] [place], [place] [address]Dr. Farhat Leal Urea nitrogen/Creatinine [Mass ratio] 36.2 mg/mg Normal [facility] Comment on above: Performed By: #### B MP ####[facility] Ypdzcyoqxq4[address] [place], [place] [address]Dr. Madelynlorri Elvis PTT HEPARIN MONITORon 2021 aPTT Coag (Bld) [Time] 45.3 s Normal 39.5-54.2 [facility] Comment on above: Performed By: #### P TTHEP ####[facility] Gcazkfdewe034[address] [place], [place] [address]Dr. Madelynlorri Elvis aPTT Coag (Bld) [Time] 68.0 s Critically high 39.5-54. 2 [facility] Comment on above: Performed By: #### P TTHEP ####[facility] Binxbxfejz4756[address] [place], [place] [address]Dr. Farhat Leal aPTT Coag (Bld) [Time] 69.4 s Critically high 39.5-54. 2 [facility] Comment on above: Performed By: #### P TTHEP ####[facility] Adlfsllcth9377[address] [place], [place] [address]Dr. Farhat Elvis aPTT Coag (Bld) [Time] 53.5 s Normal 39.5-54.2 [facility] Comment on above: Performed By: #### P TTHEP ####[facility] Ownnaebtaj2074[address] [place], [place] [address]Dr. Madelynlorri Elvis aPTT Coag (Bld) [Time] 126.9 s Critically high 39.5-54. 2 [facility] Comment on above: Performed By: #### P TTHEP ####[facility] Nwgmfmilvo4829[address] [place], [place] [address]Dr. Farhat Leal CBC AUTO DIFFon 09-20-2021 BASO # 0.1 103/ul Normal 0.0-0.1 [facility] Comment on above: Performed By: #### C BC ####[facility] Djwdmafwct5746[address] [place], [place] [address]Dr. Farhat Leal Basophils/100 WBC (Bld) 0.7 % Normal 0.2-2.0 [facility] Comment on above: Performed By: #### C BC ####[facility] Dwwnzgezal1906[address] [place], [place] [address]Dr. Farhat Leal EO # 0.2 103/ul Normal 0.0-0.7 [facility] Comment on above: Performed By: #### C BC ####[facility] Bwpirwsbni097[address] [place], [place] [address]Dr. Farhat Leal Eosinophils/100 WBC (Bld) 3.2 % Normal 0.9-7.0 [facility] Comment on above: Performed By: #### C BC ####[facility] Krnafwtsav0789[address] [place], [place] [address]Dr. Farhat Leal Erythrocyte distribution width (RBC) [Ratio] 12.4 % Normal 11.0-15.0 [facility] Comment on above: Performed By: #### C BC ####[facility] Wjobuoklwr5[address] [place], [place] [address]Dr. Farhat Leal Hematocrit (Bld) [Volume fraction] 40.1 % Critically low 42.0-54.0 [facility] Comment on above: Performed By: #### C BC ####[facility] Uoyymeiarr2809 [place] [address]Dr. Farhat Leal Hemoglobin (Bld) [Mass/Vol] 13.4 g/dL Critically low 14.0-18.0 [facility] Comment on above: Performed By: #### C BC ####[facility] Ecmjvcdthk8027 [place] [address]Dr. Farhat Leal IG # 0.08 10e3/ul Critically high 0.00-0.03 [facility] Comment on above: Performed By: #### C BC ####[facility] Nmmvsikcxe7420 [place] [address]Dr. Farhat Leal IG % 1.1 % Critically high 0.0-0.5 [facility] Comment on above: Performed By: #### C BC ####[facility] Chcdogidmh9195[address] [place], [place] [address]Dr. Farhat Leal LYMPH # 1.3 103/ul Normal 1.2-3.8 [facility] Comment on above: Performed By: #### C BC ####[facility] Eoclriutsf9955[address] [place], [place] [address]Dr. Farhat Leal Lymphocytes/100 WBC (Bld) 17.3 % Critically low 20.5-60.0 [facility] Comment on above: Performed By: #### C BC ####[facility] Uxpkpaukfe7558 [place] [address]Dr. Farhat Leal MANUAL DIFF REQ NO Normal [facility] Comment on above: Performed By: #### C BC ####[facility] Hwzzgxrfxy2400 [place] [address]Dr. Farhat Leal MCH (RBC) [Entitic mass] 31.2 pg Normal 25.9-34.0 [facility] Comment on above: Performed By: #### C BC ####[facility] Ztgwsirioj4358 [place] [address]Dr. Farhat Elvis MCHC (RBC) [Mass/Vol] 33.4 g/dL Normal 29.9-35.2 [facility] Comment on above: Performed By: #### C BC ####[facility] Xvlxugjdll1331 [place] [phone] Leal MCV (RBC) [Entitic vol] 93.3 fL Normal 80.0-94.0 [facility] Comment on above: Performed By: #### C BC ####[facility] Gcdhcwqpho4108 [place] [phone]. Farhat Leal MONO # 0.9 103/ul Critically high 0.3-0.8 [facility] Comment on above: Performed By: #### C BC ####[facility] Cakiwcwjrt5009 [place] [address]Dr. Farhat Leal Monocytes/100 WBC (Bld) 12.4 % Critically high 1.7-12.0 [facility] Comment on above: Performed By: #### C BC ####[facility] Rioixodpgi5[address] [place], [place] [address]Dr. Farhat Leal NEUT # 4.7 103/ul Normal 1.4-6.5 [facility] Comment on above: Performed By: #### C BC ####[facility] Bvfszxxagu3787[address] [place], [place] [address]Dr. Farhat Leal Neutrophils/100 WBC (Bld) 65.3 % Normal 43.0-75.0 [facility] Comment on above: Performed By: #### C BC ####[facility] Zhllfeheca9315 [place] [address]Dr. Farhat Leal Platelet mean volume (Bld) [Entitic vol] 9.9 fL Normal 9.5-13.5 [facility] Comment on above: Performed By: #### C BC ####[facility] Igldjibxrb8863 [place] [phone]. Farhat Leal PLT 180 103/ul Normal 150-450 [facility] Comment on above: Performed By: #### C BC ####[facility] Ymgwwhdagc9569 [place] [phone]. Farhat Elvis RBC 4.30 106/ul Critically low 4.70-6.10 [facility] Comment on above: Performed By: #### C BC ####[facility] Hfjpqdkpmh5988 [place] [address]Dr. Farhat Leal WBC 7.2 103/ul Normal 4.0-11.0 [facility] Comment on above: Performed By: #### C BC ####[facility] Iorjrlbhcz2[address] [place], [place] [address]Dr. Farhat Elvis PTT HEPARIN MONITORon 2021 aPTT Coag (Bld) [Time] 26.7 s Critically low 39.5-54.2 [facility] Comment on above: Performed By: #### P TTHEP ####[facility] Rilkpykuto07[address] [place], [place] [address]Dr. Farhat Leal aPTT Coag (Bld) [Time] 121.0 s Critically high 39.5-54. 2 [facility] Comment on above: Performed By: #### P TTHEP ####[facility] Ydofxodixd1220[address] [place], [place] [address]Dr. Farhat Leal aPTT Coag (Bld) [Time] 27.6 s Critically low 39.5-54.2 [facility] Comment on above: Performed By: #### P TTHEP ####[facility] [address]vbhvojyf[address] [place], [place] [address]Dr. Farhat Leal aPTT Coag (Bld) [Time] 139.0 s Critically high 39.5-54. 2 [facility] Comment on above: Performed By: #### P TTHEP ####[facility] Wtixinsecn[address] [place], [place] [address]Dr. Farhat Leal CBC AUTO DIFFon 09-19-2021 BASO # 0.0 103/ul Normal 0.0-0.1 [facility] Comment on above: Performed By: #### C BC ####[facility] Vfbxnjhmqh35[address] [place], [place] [address]Dr. Farhat Elvis Basophils/100 WBC (Bld) 0.5 % Normal 0.2-2.0 [facility] Comment on above: Performed By: #### C BC ####[facility] Rbemmfjvmu0712 [place] [phone]. Farhat Leal EO # 0.2 103/ul Normal 0.0-0.7 [facility] Comment on above: Performed By: #### C BC ####[facility] Bbyfjqlsvl6[address] [place] [phone]. Farhat Leal Eosinophils/100 WBC (Bld) 2.6 % Normal 0.9-7.0 [facility] Comment on above: Performed By: #### C BC ####[facility] Vxcmizqgod69[address] [place], [place] [address]Dr. Farhat Leal Erythrocyte distribution width (RBC) [Ratio] 12.5 % Normal 11.0-15.0 [facility] Comment on above: Performed By: #### C BC ####[facility] Eqgytglpzx69[address] [place], [place] [address]Dr. Farhat Leal Hematocrit (Bld) [Volume fraction] 39.2 % Critically low 42.0-54.0 [facility] Comment on above: Performed By: #### C BC ####[facility] Topvdxmzpj02[address] [place], [place] [address]Dr. Farhat Leal Hemoglobin (Bld) [Mass/Vol] 13.3 g/dL Critically low 14.0-18.0 [facility] Comment on above: Performed By: #### C BC ####[facility] Kbgmrpsttd7[address] [place], [place] [address]Dr. Farhat Leal IG # 0.08 10e3/ul Critically high 0.00-0.03 [facility] Comment on above: Performed By: #### C BC ####[facility] Ryhzbutrau614[address] [place], [place] [address]Dr. Farhat Leal IG % 0.9 % Critically high 0.0-0.5 [facility] Comment on above: Performed By: #### C BC ####[facility] Cassuymdqk6726[address] [place], [place] [address]Dr. Farhat Leal LYMPH # 1.5 103/ul Normal 1.2-3.8 [facility] Comment on above: Performed By: #### C BC ####[facility] Jcgwkrchhv9[address] [place] [phone]. Madelynlorri Leal Lymphocytes/100 WBC (Bld) 17.2 % Critically low 20.5-60.0 [facility] Comment on above: Performed By: #### C BC ####[facility] Autsmzikdv[address] [place] [address]Dr. Farhat Leal MANUAL DIFF REQ NO Normal [facility] Comment on above: Performed By: #### C BC ####[facility] Yfzfdminbg7469 [place] [phone]. Farhat Leal MCH (RBC) [Entitic mass] 31.7 pg Normal 25.9-34.0 [facility] Comment on above: Performed By: #### C BC ####[facility] Idkijwetmr0189[address] [place], [place] [address]Dr. Farhat Leal MCHC (RBC) [Mass/Vol] 33.9 g/dL Normal 29.9-35.2 [facility] Comment on above: Performed By: #### C BC ####[facility] Mqvxsoklgl70[address] [place], [place] [address]Dr. Farhat Leal MCV (RBC) [Entitic vol] 93.3 fL Normal 80.0-94.0 [facility] Comment on above: Performed By: #### C BC ####[facility] Qmtwhttlcc8[address] [place], [place] [address]Dr. Farhat Leal MONO # 1.2 103/ul Critically high 0.3-0.8 [facility] Comment on above: Performed By: #### C BC ####[facility] Yeqomtfjrb801[address] [place], [place] [address]Dr. Farhat Leal Monocytes/100 WBC (Bld) 13.7 % Critically high 1.7-12.0 [facility] Comment on above: Performed By: #### C BC ####[facility] Zysrgesebr045[address] [place], [place] [address]Dr. Farhat Leal NEUT # 5.5 103/ul Normal 1.4-6.5 [facility] Comment on above: Performed By: #### C BC ####[facility] Fqrmxpedpx0570 [place] [phone]. Farhat Leal Neutrophils/100 WBC (Bld) 65.1 % Normal 43.0-75.0 [facility] Comment on above: Performed By: #### C BC ####[facility] Ddozadqiqr5535 [place] [phone]. Farhat Leal Platelet mean volume (Bld) [Entitic vol] 9.6 fL Normal 9.5-13.5 [facility] Comment on above: Performed By: #### C BC ####[facility] Wdtqhjdixq3654 [place] [phone]. Farhat Leal PLT 163 103/ul Normal 150-450 [facility] Comment on above: Performed By: #### C BC ####[facility] Vgsltlmifv4655 [place] [address]Dr. Farhat Leal RBC 4.20 106/ul Critically low 4.70-6.10 [facility] Comment on above: Performed By: #### C BC ####[facility] Zmcyahidrx7811 [place] [phone]. Farhat Leal WBC 8.4 103/ul Normal 4.0-11.0 [facility] Comment on above: Performed By: #### C BC ####[facility] Ssoudcvgob6156 [place] [phone]. Farhat Leal POINT OF CARE GLUCOSEon 0 Glucose [Mass/Vol] 300 mg/dL Critically high 74-106 [facility] Comment on above: Performed By: #### P OCGLUC ####[facility] Undxskouyl1576 [place] [phone]. Farhat Leal POTASSIUMon 09-19-2021 Potassium [Moles/Vol] 4.9 mmol/L Normal 3.5-5.1 [facility] Comment on above: Performed By: #### K ####[facility] Zzxhgfgpyh3252 [place] [phone]. Farhat Leal PTT HEPARIN MONITORon 08-05- 2022 aPTT Coag (Bld) [Time] 23.4 s Critically low 39.5-54.2 [facility] Comment on above: Result Comment: repe ated Performed By: #### P TTHEP ####[facility] Hhdutnkxfw5957[address] [place], [place] [address]Dr. Farhat Leal aPTT Coag (Bld) [Time] 101.2 s Critically high 39.5-54. 2 [facility] Comment on above: Performed By: #### P TTHEP ####[facility] Kspscrzwjz7368[address] [place], [place] [address]Dr. Farhat Leal aPTT Coag (Bld) [Time] 81.0 s Critically high 39.5-54. 2 [facility] Comment on above: Result Comment: Test Repeated. Critical Value Verified Performed By: #### P TTHEP ####[facility] Jpnmaljsye119[address] [place], [place] [address]Dr. Farhat Leal CBC AUTO DIFFon 09-18-2021 BASO # 0.0 103/ul Normal 0.0-0.1 [facility] Comment on above: Performed By: #### C BC ####[facility] Vmdlqowewr4367[address] [place], [place] [address]Dr. Farhat Elvis Basophils/100 WBC (Bld) 0.4 % Normal 0.2-2.0 [facility] Comment on above: Performed By: #### C BC ####[facility] Jeuuetrmur9217[address] [place], [place] [address]Dr. Farhat Leal EO # 0.1 103/ul Normal 0.0-0.7 [facility] Comment on above: Performed By: #### C BC ####[facility] Ytczkjfxmz8055[address] [place], [place] [address]Dr. Farhat Leal Eosinophils/100 WBC (Bld) 0.8 % Critically low 0.9-7.0 [facility] Comment on above: Performed By: #### C BC ####[facility] Boaagxlvak399[address] [place], [place] [address]Dr. Farhat Leal Erythrocyte distribution width (RBC) [Ratio] 12.4 % Normal 11.0-15.0 [facility] Comment on above: Performed By: #### C BC ####[facility] Muaafrqywk5004 [place] [address]DrSkylar Leal Hematocrit (Bld) [Volume fraction] 41.7 % Critically low 42.0-54.0 [facility] Comment on above: Performed By: #### C BC ####[facility] Gnzukchkfn5105 [place] [address]DrSkylar Leal Hemoglobin (Bld) [Mass/Vol] 14.1 g/dL Normal 14.0-18.0 [facility] Comment on above: Performed By: #### C BC ####[facility] Pgvlzefkgs6774[address] [place], [place] [address]DrSkylar Leal IG # 0.06 10e3/ul Critically high 0.00-0.03 [facility] Comment on above: Performed By: #### C BC ####[facility] Qujixazlfv0694[address] [place], [place] [address]DrSkylar Leal IG % 0.6 % Critically high 0.0-0.5 [facility] Comment on above: Performed By: #### C BC ####[facility] Dbgluhrolf3356[address] [place], [place] [address]DrSkylar Leal LYMPH # 0.6 103/ul Critically low 1.2-3.8 [facility] Comment on above: Performed By: #### C BC ####[facility] Mbfgbmqfih3836[address] [place], [place] [address]DrSkylar Leal Lymphocytes/100 WBC (Bld) 6.5 % Critically low 20.5-60.0 [facility] Comment on above: Performed By: #### C BC ####[facility] Gmqqklztyk6[address] [place], [place] [address]DrSkylar Leal MANUAL DIFF REQ NO Normal [facility] Comment on above: Performed By: #### C BC ####[facility] Mojpiekikv2285[address] [place], [place] [address]DrSkylar Leal MCH (RBC) [Entitic mass] 31.6 pg Normal 25.9-34.0 [facility] Comment on above: Performed By: #### C BC ####[facility] Qwegpeeymc9231 [place] [address]Dr. Farhat Leal MCHC (RBC) [Mass/Vol] 33.8 g/dL Normal 29.9-35.2 [facility] Comment on above: Performed By: #### C BC ####[facility] Kelymnkpvb1945[address] [place], [place] [address]DrSkylar Leal MCV (RBC) [Entitic vol] 93.5 fL Normal 80.0-94.0 [facility] Comment on above: Performed By: #### C BC ####[facility] Dbemfmijch[address] [place], [place] [address]DrSkylar Leal MONO # 1.0 103/ul Critically high 0.3-0.8 [facility] Comment on above: Performed By: #### C BC ####[facility] Xtotambqcv020138 [address] [place], [place] [address]Dr. Farhat Leal Monocytes/100 WBC (Bld) 10.4 % Normal 1.7-12.0 [facility] Comment on above: Performed By: #### C BC ####[facility] Begvjlzlxx5244[address] [place], [place] [address]DrSkylar Leal NEUT # 7.8 103/ul Critically high 1.4-6.5 [facility] Comment on above: Performed By: #### C BC ####[facility] Nmgvvopghw7[address] [place], [place] [address]DrSkylar Leal Neutrophils/100 WBC (Bld) 81.3 % Critically high 43.0-75.0 [facility] Comment on above: Performed By: #### C BC ####[facility] Bhrynutfjw3876[address] [place], [place] [address]DrSkylar Leal Platelet mean volume (Bld) [Entitic vol] 9.9 fL Normal 9.5-13.5 [facility] Comment on above: Performed By: #### C BC ####[facility] Rrfmyiyqrh2848[address] [place], [place] [address]DrSkylar Leal PLT 169 103/ul Normal 150-450 [facility] Comment on above: Performed By: #### C BC ####[facility] Xrwtxgzyrs9030 [place] [phone]. Farhat Leal RBC 4.46 106/ul Critically low 4.70-6.10 [facility] Comment on above: Performed By: #### C BC ####[facility] Qhktagipeg7133 [place] [phone]. Farhat Leal WBC 9.6 103/ul Normal 4.0-11.0 [facility] Comment on above: Performed By: #### C BC ####[facility] Hvyaylerfo6305 [place] [phone]. Farhat Leal BASO # 0.0 103/ul Normal 0.0-0.1 [facility] Comment on above: Performed By: #### C BC ####[facility] Rcfyiozfqn9575 [place] [phone]. Farhat Leal Basophils/100 WBC (Bld) 0.4 % Normal 0.2-2.0 [facility] Comment on above: Performed By: #### C BC ####[facility] Xuimofsaex3280 [place] [phone]. Farhat Leal EO # 0.1 103/ul Normal 0.0-0.7 [facility] Comment on above: Performed By: #### C BC ####[facility] Hkmgtfbheb6876 [place] [phone]. Farhat Leal Eosinophils/100 WBC (Bld) 1.1 % Normal 0.9-7.0 [facility] Comment on above: Performed By: #### C BC ####[facility] [address]zwl[address] [place], [place] [id number]. Farhat Leal Erythrocyte distribution width (RBC) [Ratio] 12.6 % Normal 11.0-15.0 [facility] Comment on above: Performed By: #### C BC ####[facility] Paowbuweir[address] [place], [place] [phone]. Farhat Leal Hematocrit (Bld) [Volume fraction] 40.8 % Critically low 42.0-54.0 [facility] Comment on above: Performed By: #### C BC ####[facility] Ufbbztkxyn5[address] [place] [phone] Farhat Elvis Hemoglobin (Bld) [Mass/Vol] 13.6 g/dL Critically low 14.0-18.0 [facility] Comment on above: Performed By: #### C BC ####[facility] Gzvpglcehj5769 [place] [phone] Joshilorri Elvis IG # 0.08 10e3/ul Critically high 0.00-0.03 [facility] Comment on above: Performed By: #### C BC ####[facility] Ujdncsqtzu0699 [place] [address]DrSkylar Leal IG % 0.9 % Critically high 0.0-0.5 [facility] Comment on above: Performed By: #### C BC ####[facility] Ayauinedsa5728 [place] [address]DrSkylar Leal LYMPH # 0.8 103/ul Critically low 1.2-3.8 [facility] Comment on above: Performed By: #### C BC ####[facility] Tdbuqbngjg8565 [place] [phone] Leal Lymphocytes/100 WBC (Bld) 8.7 % Critically low 20.5-60.0 [facility] Comment on above: Performed By: #### C BC ####[facility] Xrqalbhlwk0433 [place] [address]DrSkylar Leal MANUAL DIFF REQ NO Normal [facility] Comment on above: Performed By: #### C BC ####[facility] Pbauwdaaxg9542 [place] [phone] Leal MCH (RBC) [Entitic mass] 31.6 pg Normal 25.9-34.0 [facility] Comment on above: Performed By: #### C BC ####[facility] Ijlaqhaivo1769 [place] [phone] Leal MCHC (RBC) [Mass/Vol] 33.3 g/dL Normal 29.9-35.2 [facility] Comment on above: Performed By: #### C BC ####[facility] Hnhxanpbxp0021 [place] [address]DrSkylar Leal MCV (RBC) [Entitic vol] 94.9 fL Critically high 80.0-94.0 [facility] Comment on above: Performed By: #### C BC ####[facility] Burxiivvzu4651 [place] [address]DrSkylar Leal MONO # 1.0 103/ul Critically high 0.3-0.8 [facility] Comment on above: Performed By: #### C BC ####[facility] Uiqykjhisk134[address] [place], [place] [address]DrSkylar Leal Monocytes/100 WBC (Bld) 11.3 % Normal 1.7-12.0 [facility] Comment on above: Performed By: #### C BC ####[facility] Cmxencqkkv278[address] [place], [place] [address]DrSkylar Leal NEUT # 6.9 103/ul Critically high 1.4-6.5 [facility] Comment on above: Performed By: #### C BC ####[facility] Zjldpctenk44[address] [place], [place] [address]DrSkylar Leal Neutrophils/100 WBC (Bld) 77.6 % Critically high 43.0-75.0 [facility] Comment on above: Performed By: #### C BC ####[facility] Jxjiklrmqq676[address] [place], [place] [address]DrSkylar Leal Platelet mean volume (Bld) [Entitic vol] 9.7 fL Normal 9.5-13.5 [facility] Comment on above: Performed By: #### C BC ####[facility] Xefvufmzuc284[address] [place], [place] [address]DrSkylar Leal PLT 171 103/ul Normal 150-450 [facility] Comment on above: Performed By: #### C BC ####[facility] Bqhzhnhpct88[address] [place], [place] [address]DrSkylar Leal RBC 4.30 106/ul Critically low 4.70-6.10 [facility] Comment on above: Performed By: #### C BC ####[facility] Dkntqelngt5192 [place] [phone] Leal WBC 8.9 103/ul Normal 4.0-11.0 [facility] Comment on above: Performed By: #### C BC ####[facility] Qcfikclklp8494 [place] [phone]. Farhat Leal Covid-19 PCR (CVDTB)on SARS-CoV-2 (COVID-19) RNA JOSH+probe Ql (Unsp spec) Not detected Normal NOT DETECTED [facility] Comment on above: Result Comment: When diagnostic [...] for this test is supported by the [employer] and [employer] Service's declaration that [...] be used). Performed By: #### C VDTBH ####[facility] Tiwuqlywuz1397 [place] [phone] Farhat Elvis PROF 14(COMP METB)on 022 Albumin [Mass/Vol] 2.6 g/dL Critically low 3.4-5.0 [facility] Comment on above: Performed By: #### C MP ####[facility] Ccyvkcntar5543 [place] [phone] Madelynlorri Leal Albumin/Globulin [Mass ratio] 0.7 {ratio} Normal [facility] Comment on above: Performed By: #### C MP ####[facility] Egdkdkncwe7613 [place] [address]Dr. Farhat Leal ALP [Catalytic activity/Vol] 88 U/L Normal 46-116 [facility] Comment on above: Performed By: #### C MP ####[facility] Culqwrfzel4496 [place] [address]Dr. Farhat Leal ALT [Catalytic activity/Vol] 15 U/L Critically low 16-63 [facility] Comment on above: Performed By: #### C MP ####[facility] Dhatvkewtv1635 [place] [address]Dr. Farhat Leal Anion gap [Moles/Vol] 11.7 mmol/L Normal [facility] Comment on above: Performed By: #### C MP ####[facility] Pfyfxzszov3[address] [place], [place] [address]Dr. Farhat Leal AST [Catalytic activity/Vol] 25 U/L Normal 15-37 [facility] Comment on above: Performed By: #### C MP ####[facility] Wubeypkvxr3923 [place] [address]Dr. Farhat Leal Bilirubin [Mass/Vol] 0.6 mg/dL Normal 0.2-1.0 [facility] Comment on above: Performed By: #### C MP ####[facility] Qyrnudxfoc5209 [place] [address]Dr. Farhat Leal Calcium [Mass/Vol] 8.9 mg/dL Normal 8.5-10.[address] [facility] Comment on above: Performed By: #### C MP ####[facility] Esxrkgthzy74[address] [place] [address]Dr. Farhat Leal Chloride [Moles/Vol] 93 mmol/L Critically low 98-107 [facility] Comment on above: Performed By: #### C MP ####[facility] Tdokpfnahv1940 [place] [address]Dr. Farhat Leal CO2 [Moles/Vol] 28.9 mmol/L Normal 21.0-32.0 [facility] Comment on above: Performed By: #### C MP ####[facility] Hhwomfuitf7929 [place] [phone]. Farhat Leal Creatinine [Mass/Vol] 2.09 mg/dL Critically high 0.70-1.30 [facility] Comment on above: Performed By: #### C MP ####[facility] Xnblcypoog9468 [place] [phone]. Farhat Leal EGFR-AF BRITISH 38 mL/min/1.73m2 Critically low >=60 [facility] Comment on above: Performed By: #### C MP ####[facility] Aqfujsirsm7413 [place] [phone]. Farhat Leal EGFR-NON AF BRITISH 31 mL/min/1.73m2 Critically low >=60 [facility] Comment on above: Performed By: #### C MP ####[facility] Mszkxinjlo4886 [place] [address]Dr. Farhat Leal Globulin (S) [Mass/Vol] 3.7 g/dL Normal [facility] Comment on above: Performed By: #### C MP ####[facility] Pherojdikc0974 [place] [address]Dr. Farhat Leal Glucose [Mass/Vol] 214 mg/dL Critically high 74-106 [facility] Comment on above: Performed By: #### C MP ####[facility] Clxykdsiwo3435 [place] [phone]. Farhat Leal Potassium [Moles/Vol] 5.6 mmol/L Critically high 3.5-5.1 [facility] Comment on above: Performed By: #### C MP ####[facility] Dwurjsyjty4934 [place] [phone]. Farhat Leal Protein [Mass/Vol] 6.3 g/dL Critically low 6.4-8.2 [facility] Comment on above: Performed By: #### C MP ####[facility] Bnttcxpnoz[address] [place], [place] [phone]. Farhat Leal Sodium [Moles/Vol] 128 mmol/L Critically low 136-145 [facility] Comment on above: Performed By: #### C MP ####[facility] Ivjmihmtte9724 [place] [address]Dr. Madelynlorri Elvis Urea nitrogen [Mass/Vol] 65.0 mg/dL Critically high 7.0-18.0 [facility] Comment on above: Performed By: #### C MP ####[facility] Pbqbzjdeji2519 [place] [address]Dr. Farhat Leal Urea nitrogen/Creatinine [Mass ratio] 31.1 mg/mg Normal [facility] Comment on above: Performed By: #### C MP ####[facility] Jzvoyexqvl44[address] [place], [place] [address]Dr. Farhat Leal Albumin [Mass/Vol] 2.5 g/dL Critically low 3.4-5.0 [facility] Comment on above: Performed By: #### T MYRIAM, CMP ####[facility] Miiswmdbvn0[address] [place], [place] [address]Dr. Farhat Leal Albumin/Globulin [Mass ratio] 0.7 {ratio} Normal [facility] Comment on above: Performed By: #### T MYRIAM, CMP ####[facility] Rncirotqtp3326[address] [place], [place] [address]Dr. Farhat Leal ALP [Catalytic activity/Vol] 83 U/L Normal 46-116 [facility] Comment on above: Performed By: #### T MYRIAM, CMP ####[facility] V[address]kftxjzzs7[address] [place], [place] [address]Dr. Farhat Leal ALT [Catalytic activity/Vol] 16 U/L Normal 16-63 [facility] Comment on above: Performed By: #### T SH, CMP ####[facility] Txxfbjaxzy1733[address] [place], [place] [address]Dr. Farhat Leal Anion gap [Moles/Vol] 9.7 mmol/L Normal [facility] Comment on above: Performed By: #### T SH, CMP ####[facility] Pbggbuwlfl7964[address] [place], [place] [address]Dr. Farhat Leal AST [Catalytic activity/Vol] 27 U/L Normal 15-37 [facility] Comment on above: Performed By: #### T SH, CMP ####[facility] Scjdkelfij6505 [place] [phone]. Farhat Leal Bilirubin [Mass/Vol] 0.5 mg/dL Normal 0.2-1.0 [facility] Comment on above: Performed By: #### T SH, CMP ####[facility] Tpyhriwdun6717[address] [place], [place] [address]Dr. Farhat Leal Calcium [Mass/Vol] 8.8 mg/dL Normal 8.5-10.[address] [facility] Comment on above: Performed By: #### T SH, CMP ####[facility] Ukclsyrydd027[address] [place], [place] [address]Dr. Farhat Leal Chloride [Moles/Vol] 95 mmol/L Critically low 98-107 [facility] Comment on above: Performed By: #### T SH, CMP ####[facility] Brmmaeicuh3824[address] [place], [place] [address]Dr. Farhat Leal CO2 [Moles/Vol] 30.5 mmol/L Normal 21.0-32.0 [facility] Comment on above: Performed By: #### T SH, CMP ####[facility] Minwxkkgrb0101[address] [place], [place] [address]Dr. Farhat Leal Creatinine [Mass/Vol] 2.18 mg/dL Critically high 0.70-1.30 [facility] Comment on above: Performed By: #### T SH, CMP ####[facility] Vbysyletva[address] [place], [place] [address]Dr. Farhat Leal EGFR-AF BRITISH 36 mL/min/1.73m2 Critically low >=60 [facility] Comment on above: Performed By: #### T SH, CMP ####[facility] [address]iz[address]zwp[address] [place], [place] [id number]. Farhat Leal EGFR-NON AF BRITISH 30 mL/min/1.73m2 Critically low >=60 [facility] Comment on above: Performed By: #### T SH, CMP ####[facility] [address]ctr[address] [place], [place] [id number]. Farhat Leal Globulin (S) [Mass/Vol] 3.5 g/dL Normal [facility] Comment on above: Performed By: #### T SH, CMP ####[facility] [address] [place], [place] [address]Dr. Farhat Leal Glucose [Mass/Vol] 141 mg/dL Critically high 74-106 T [facility] Comment on above: Performed By: #### T SH, CMP ####[facility] [address] [place], [place] [address]Dr. Farhat Leal Potassium [Moles/Vol] 5.2 mmol/L Critically high 3.5-5.1 [facility] Comment on above: Performed By: #### T MYRIAM, CMP ####[facility] [address] [place], [place] [address]Dr. Farhat Leal Protein [Mass/Vol] 6.0 g/dL Critically low 6.4-8.2 [facility] Comment on above: Performed By: #### T MYRIAM, CMP ####[facility] [address] [place], [place] [address]Dr. Farhat Leal Sodium [Moles/Vol] 130 mmol/L Critically low 136-145 Th [facility] Comment on above: Performed By: #### T SH, CMP ####[facility] [address] [place], [place] [address]Dr. Farhat Leal Urea nitrogen [Mass/Vol] 63.0 mg/dL Critically high 7.0-18.0 [facility] Comment on above: Performed By: #### T MYRIAM, CMP ####[facility] Ez[address] [place], [place] [address]Dr. Farhat Leal Urea nitrogen/Creatinine [Mass ratio] 28.9 mg/mg Normal [facility] Comment on above: Performed By: #### T MYRIAM, CMP ####[facility] [address] [place], [place] [address]Dr. Farhat Leal PROTIMEon 09-18-2021 INR Coag (PPP) [Relative time] 1.06 {INR} Normal [facility] Comment on above: Performed By: #### P T, PTT ####[facility] [address] [place], [place] [id number]. Farhat Leal INR GUIDELINES SEE BELOW Normal [facility] Comment on above: Result Comment: MALINA RED INR: 2.0 - 3.0 CONDITIONS NOT LISTED BELOW 2.5 - 3.5 FOR PROSTHETIC HEART VALVE REPLACEMENT 2.5 - 3.5 RECURRENT THROMBOSIS Performed By: #### P T, PTT ####[facility] [address] [place] [address]Dr. Farhat Leal PT Coag (PPP) [Time] 11.4 s Normal 9.0-11.6 [facility] Comment on above: Performed By: #### P T, PTT ####[facility] [address] [place] [address]Dr. Farhat Leal PTTon 09-18-2021 aPTT Coag (Bld) [Time] 27.9 s Normal 22.3-36.2 [facility] Comment on above: Performed By: #### P T, PTT ####[facility] [address] [place] [address]Dr. Farhat Leal TSHon 09-18-2021 TSH 7.099 uIU/mL Critically high 0.358-3.[address] [facility] Comment on above: Performed By: #### T SH, CMP ####[facility] [address] [place] [address]Dr. Farhat Leal US SALOME DOP LEG RTon 09-19-19 US SALOME DOP LEG RT Normal [facility] XR CHEST 1 Von 09-18-2021 XR CHEST 1 V Normal [facility] XR HIP RT 2 3V W PELVISon XR HIP RT 2 3V W PELVIS Normal [facility] Vital Signs Date Time Vital Sign Value Performing Clinician Facility 03-18-2023 13:37-0500 Body temperature 98.01 [degF] Ni Cabrera DO Work Phone: [facility] 03-18-2023 13:37-0500 Diastolic blood pressure 64 mm[Hg] Ni Christophertiffanie DO Work Phone: [facility] 03-18-2023 13:37-0500 Heart rate 72 /min Ni Petznick DO Work Phone: [facility] 03-18-2023 13:37-0500 SaO2% (BldA) [Mass fraction] 98 % Ni Petznick DO Work Phone: [facility] 03-18-2023 13:37-0500 Systolic blood pressure 118 mm[Hg] Ni Petznick DO Work Phone: [facility] 07-20-2022 13:35-0400 Body temperature 97.4 [degF] DO Devon Ball Work Phone: [facility] 07-20-2022 13:35-0400 Diastolic blood pressure 50 mm[Hg] DO Devon Ball Work Phone: [facility] 07-20-2022 13:35-0400 Heart rate 67 /min DO Devon Ball Work Phone: [facility] 07-20-2022 13:35-0400 Respiratory rate 20 /min DO Devon Ball Work Phone: [facility] 07-20-2022 13:35-0400 Systolic blood pressure 98 mm[Hg] DO Devon Ball Work Phone: [facility] 06-29-2022 14:46-0400 Body height 193.04 cm DO Devon Ball Work Phone: [facility] 02-26-2022 13:11-0500 Body temperature 96.6 [degF] Hina Peterson MD Work Phone: [facility] 02-26-2022 13:11-0500 Diastolic blood pressure 75 mm[Hg] Hina Peterson MD Work Phone: [facility] 02-26-2022 13:11-0500 Heart rate 75 /min Hina Peterson MD Work Phone: [facility] 02-26-2022 13:11-0500 Systolic blood pressure 88 mm[Hg] Hina Peterson MD Work Phone: [facility] 02-05-2022 08:29-0500 Body temperature 96.69 [degF] [facility] Work Phone: [facility] 02-05-2022 08:29-0500 Diastolic blood pressure 42 mm[Hg] [facility] Work Phone: [facility] 02-05-2022 08:29-0500 Heart rate 79 /min [facility] Work Phone: [facility] 02-05-2022 08:29-0500 SaO2% (BldA) [Mass fraction] 100 % [facility] Work Phone: [facility] 02-05-2022 08:29-0500 Systolic blood pressure 72 mm[Hg] [facility] Work Phone: [facility] 01-12-2022 11:00-0500 Diastolic blood pressure 54 mm[Hg] Alissa Major SHEET [employer]AL FORMER.[employer] SUPER[employer]OR Work Phone: [facility] 01-12-2022 11:00-0500 Heart rate 88 /min Alissa Major [employer] FORMER.[employer] SUPERVISOR Work Phone: [facility] 01-12-2022 11:00-0500 SaO2% (BldA) [Mass fraction] 93 % Alissa Major [employer] FORMER.[employer] SUPERVISOR Work Phone: [facility] 01-12-2022 11:00-0500 Systolic blood pressure 96 mm[Hg] Alissa Major [employer] FORMER.[employer] SUPERVISOR Work Phone: [facility] 01-12-2022 10:12-0500 Body temperature 97.9 [degF] Alissa Major [employer] FORMER.[employer] SUPERVISOR Work Phone: [facility] 01-12-2022 10:12-0500 Respiratory rate 18 /min Alissa Major [employer] FORMER.[employer] SUPERVISOR Work Phone: [facility] 11-17-2021 15:59-0400 Body height 193 cm No Reeder DO Work Phone: [facility] 11-17-2021 15:59-0400 Body weight 111.58 kg No Reeder DO Work Phone: [facility] 11-17-2021 15:59-0400 Diastolic blood pressure 59 mm[Hg] No Reeder DO Work Phone: [facility] 11-17-2021 15:59-0400 Heart rate 86 /min No Reeder DO Work Phone: [facility] 11-17-2021 15:59-0400 SaO2% (BldA) [Mass fraction] 97 % No Reeder DO Work Phone: [facility] 11-17-2021 15:59-0400 Systolic blood pressure 104 mm[Hg] No Reeder DO Work Phone: [facility] Encounters Encounter Date Encounter Type Care Provider Facility Start: 06-17-2023 End: 06-17-2023 ambulatory NI CABRERA Not Available Start: 05-19-2023 End: 05-19-2023 ambulatory [facility] Start: 04-11-2023 End: 04-11-2023 ambulatory Devon Moreira Other [facility] [employer] [facility] Other Start: 04-11-2023 Telephone encounter Devon NUNEZ [facility] Start: 03-18-2023 End: 03-18-2023 ambulatory NI CABRERA Not Available Start: 03-18-2023 End: 03-18-2023 Office outpatient visit 25 minutes Ni Cabrera DO Work Phone: [facility] [phone] Comment on above: 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 ([facility]/HCC) (Primary Dx); 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 ([facility]/HCC); 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); Type 1 diabetes mellitus with hypoglycemia and without coma (CMS/HCC); 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 ([facility]/HCC) Start: 02-17-2023 End: 02-17-2023 ambulatory Devon Moreira Other [facility] [facility] Other Start: 02-17-2023 Telephone encounter Devon Manzo [facility] Start: 01-14-2023 End: 01-14-2023 ambulatory Devon Moreira Other [facility] [facility] Other Start: 01-14-2023 Sbsq nursing facil c are/day minor complj 15 min [facility] Start: 12-10-2022 End: 12-10-2022 ambulatory Devon Moreira Other [facility] [facility] Other Start: 12-10-2022 Sbsq nursing facil c are/day minor complj 15 min [facility] Start: 11-12-2022 End: 11-12-2022 ambulatory Devon Moreira Other [facility] [facility] Other Start: 11-12-2022 Sbsq nursing facil c are/day minor complj 15 min [facility] Start: 10-16-2022 Refill Asia Pike MD Work Phone: [facility] Comment on above: Med Change Request Start: 10-12-2022 End: 10-12-2022 ambulatory Devon Moreira Other [facility] [facility] Other Start: 10-12-2022 Telephone encounter Devon Moreira [facility] Start: 10-08-2022 End: 10-08-2022 ambulatory Devon Moreira Other [facility] [facility] Other Start: 10-08-2022 Sbsq nursing facil c are/day new problem 25 min [facility] Start: 09-22-2022 Refill [facility] Comment on above: Rx Refills Start: 09-10-2022 End: 09-10-2022 ambulatory Devon Moreira Other [employer] [facility] Other Start: 09-10-2022 Sbsq nursing facil c are/day new problem 25 min [facility] Start: 09-09-2022 End: 09-09-2022 ambulatory [facility] Start: 08-06-2022 End: 08-06-2022 ambulatory Devon Moreira Other [facility] [facility] Other Start: 08-06-2022 Sbsq nursing facil c are/day new problem 25 min Devon Moreira [facility] Start: 07-22-2022 End: 07-22-2022 ambulatory Devon Moreira Other [employer] [facility] Other Start: 07-22-2022 Telephone encounter [facility] Start: 07-20-2022 End: 07-20-2022 ambulatory Sadia Luisey Facility:[facility] Start: 07-20-2022 End: 07-20-2022 ambulatory DO Devon Moreira Work Phone: [facility] Work Phone: Start: 07-20-2022 End: 07-20-2022 Discharged Recurring DO Devon Moerira Work Phone: [facility] [place] Work Phone: Start: 07-13-2022 End: 07-13-[address] DEVON MOREIRA Facility:[facility] Start: 07-10-2022 End: 07-10-[address] DEVON MOREIRA Facility:[facility] Start: 07-03-2022 End: 07-03-[address] DEVON MOREIRA Facility:[facility] Start: 06-26-2022 End: 06-26-[address] DEVON MOREIRA Facility:[facility] Start: 06-26-2022 End: 06-26-[address] DEVON MOREIRA Facility:[facility] Start: 06-25-2022 End: 06-25-2022 ambulatory Devon Moreira Other [facility] [facility] Other Start: 06-25-2022 Sbsq nursing facil c are/day minor complj 15 min Devon Moreira [facility] Start: 06-19-2022 End: 06-19-[address] DEVON MOREIRA Facility:[facility] Start: 06-15-2022 End: 07-15-2022 ambulatory SHAIKH Kate MURRAY Facility:[facility] Start: 06-12-2022 End: 06-12-[address] DOCTOR WALSH Facility:[facility] Start: 06-05-2022 Sbsq nursing facil c are/day new problem 25 min Devon Moreira [facility] Start: 06-05-2022 End: 06-05-[address] DEVON MOREIRA [facility] [employer] Other Start: 05-29-2022 End: 05-29-[address] DEVON MOREIRA Facility:[facility]1 Start: 05-22-2022 End: 05-22-[address] DEVON MOREIRA Facility:[facility] Start: 05-20-2022 End: 05-20-[address] DEVON MOREIRA Facility:[facility] Start: 05-18-2022 End: 06-12-2022 ambulatory SHAIKH Kate MURRAY Facility:[facility] Start: 05-15-2022 End: 05-15-[address] DEVON MOREIRA Facility:[facility] Start: 05-13-2022 End: 05-13-2022 ambulatory Van Olivarez APRN.[employer] SUPERVISOR Work Phone: [facility] Comment on above: results Start: 05-13-2022 E-mail encounter fro m caregiver Van Olivarez APRN.[employer] SUPERVISOR Work Phone: [facility] Start: 05-08-2022 End: 05-08-[address] DEVON MOREIRA Facility:[facility] Start: 05-07-2022 End: 05-07-2022 ambulatory Devon Moreira Other [facility] [employer] Other Start: 05-07-2022 Sbsq nursing facil c are/day new problem 25 min Devon Moreira [facility] Start: 05-06-2022 End: 05-06-2022 ambulatory [...] MOREIRA Facility:[facility]1 Start: 04-02-2022 ambulatory Van cortes APRN.[employer] SUPERVISOR Work Phone: [facility] Start: 04-01-2022 End: 04-01-[address] DEVON MOREIRA Facility:[facility]1 Start: 03-22-2022 Refill Asia Pike MD Work Phone: [facility] Comment on above: Med Change Request Start: 03-21-2022 ambulatory SHAIKH Kate MURRAY Facilit y:H1 Start: 03-11-2022 End: 03-11-[address] DEVON MOREIRA Facility:[facility]1 Start: 02-27-2022 Refill Samira Serna [facility] Comment on above: Rx Refills Start: 02-26-2022 End: 02-26-2022 ambulatory DEVON MOREIRA Facility:[facility] Start: 02-26-2022 End: 02-26-2022 Patient encounter [...] Start: 02-05-2022 End: 02-06-2022 ambulatory ARTUR CHEN Facility:[facility] Start: 02-05-2022 End: 02-05-2022 Patient encounter procedure [facility] Work Phone: [facility] Comment on above: Kidney replaced by t ransplant (Primary Dx); 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; [facility] current use of immunosuppressive drug Start: 01-26-2022 End: 01-26-[address] DEVON MOREIRA Facility:[facility] Start: 01-20-2022 Telephone encounter Van Olivarez APRN.[employer] SUPERVISOR Work Phone: [facility] Comment on above: Results Start: 01-19-2022 End: 01-19-[address] DEVON MOREIRA Facility:[facility] Start: 01-16-2022 ambulatory SHAIKH Kate MURRAY Facilit y:H1 Start: 01-12-2022 End: 01-12-2022 Subsequent hospital visit by physician Alissa Chavira APRN.[employer] SUPERVISOR Work Phone: [facility] Comment on above: ILIANA (acute kidney in jury) (HCC) [N17.9] Start: 12-30-2021 End: 12-30-2021 ambulatory Paresh Fonseca MD Work Phone: Infectious Disease Comment on above: MRSA bacteremia (Arabella munira Dx); Diabetic foot ulcer with osteomyelitis (HCC) Start: 12-30-2021 End: 12-30-2021 Telemedicine consultation with patient Paresh Fonseca MD Work Phone: [facility] Start: 12-29-2021 End: 12-29-[address] [...] [place] Start: 12-08-2021 Orders Only Artur Richmondsuzan ry SHEET METAL FORMER.[employer] SUPERVISOR Work Phone: [facility] Comment on above: [...] Provider [facility] Start: 12-01-2021 Patient encounter procedure [facility] Prov ider [facility] Department Start: 11-23-2021 End: 11-28-2021 Evaluation and management of inpatient DIAMOND H TREVOR Facility:[facility]1 Start: 11-18-2021 End: 12-16-2021 ambulatory DIAMOND H MERCEDESSergeLIZZY Facility:[facility]1 Start: 11-17-2021 End: 11-17-2021 Patient encounter procedure No Reeder DO Work Phone: [facility] Comment on above: Acute deep vein thro mbosis (DVT) of proximal end of right lower extremity (HCC) (Primary Dx); PAD (peripheral artery disease) (HCC); Nonhealing ulcer of heel (HCC); Anticoagulation management encounter Start: 11-14-2021 End: 11-15-2021 ambulatory ASHLEY GARIBAY Facility:[facility]1 Start: 10-24-2021 End: 11-15-2021 ambulatory SHAIKH Kate MURRAY Facility:[facility] Start: 10-22-2021 End: 10-23-2021 ambulatory ASHLEY Cortes JOSHUASRINATH Facility:[facility]1 Start: 10-06-2021 ambulatory Van cortes APRN.[employer] SUPERVISOR Work Phone: [facility] Start: 09-30-2021 Refill Asia Pike MD Work Phone: [facility] Comment on above: Refill Request Start: 09-19-2021 End: 09-24-2021 Evaluation and management of inpatient DR PROSPER LEES Facility:[facility]1 Start: 09-18-2021 End: 09-19-[address] DEVON MOREIRA Facility:[facility] Start: 07-11-2021 Refill Asia Pike MD Work Phone: [facility] Comment on above: Refill Request Start: 06-05-2021 Telephone encounter Van Olivarez [employer] FORMER.[employer] SUPERVISOR Work Phone: [facility] Comment on above: Results Start: 02-05-2021 End: 02-13-2021 ambulatory UNKNOWN PROVIDER Facility:[facility] Procedures Date Procedure Procedure Detail Performing Clinician Start: 05-19-2023 Follow-up visit Follow-up CAITY IBRAHIM Start: 03-18-2023 Hemoglobin glycosyla rk a1c Ni Cabrera DO Work Phone: Start: 02-05-2022 Creatinine other source Asia Pike MD Work Phone: Start: 02-05-2022 Urnls dip stick/tabl et rgnt auto w/o microscopy Asia Pike MD Work Phone: Start: 01-12-2022 Prothrombin time Alissa Chavira [employer] FORMER.[employer] SUPERVISOR Work Phone: Start: 12-01-2021 PACEMAKER CLINIC CHECK [facility] Provider Start: 11-29-2021 Microscopic examinat ion of blood, culture DR PROSPER LEES Comment on above: Performed By: #### B [id number] ####[place] [id number]. Farhat Leal Start: 11-27-2021 Insertion of Infusio [...] of renal transplant KIDNEY TRANSPLANT STATUS Van Krusejaylan SHEET METAL FORMER.[employer] SUPERVISOR Work Phone: History of renal transplant Kidney replaced by transplant Artur Chen SHEET METAL FORMER.[employer]Y [employer] SUPERVISOR Work Phone: History of renal transplant Kidney replaced by transplant [facility]ney [facility] Work Phone: History of renal transplant Devon Lillie Other History of renal transplant Kidney replaced by transplant Asia Pike MD Work Phone: History of renal transplant Devon Lillie Other Plan of Treatment Date Care Activity Detail Author Start: 06-17-2023 End: 06-17-2023 Patient encounter procedure 06/17/2023 2:15 PM EDT Office Visit [facility] [address] [facility] [address] [place] [address] Ni Cabrera, DO [address] [employer] [address] [place] [address] [facility] [address] Start: 06-16-2023 Hemoglobin A1c measurement Diabetes: Hemoglobin A1C [facility] Start: 02-26-2023 BP CONTROLLED (<130/80) BP CONTROLLE D (<130/80) [facility] Start: 02-05-2023 BP CONTROLLED (<130/80) BP CONTROLLE D (<130/80) [facility] Start: 01-12-2023 BP CONTROLLED (<130/80) BP CONTROLLE D (<130/80) [facility] Start: 11-17-2022 BP CONTROLLED (<130/80) BP CONTROLLE D (<130/80) [facility] Start: 10-16-2022 Influenza vaccination C [facility] Start: 05-15-2022 Medicare Annual Wellness (AWV) Medicare Annual Wellness (AWV) [facility] Start: 04-08-2022 BP CONTROLLED (<130/80) BP CONTROLLE D (<130/80) [facility] Start: 02-15-2022 ADVANCE DIRECTIVE DISCUSSION ADVANCE DIRECTIVE DISCUSSION [facility] Start: 02-15-2022 DEPRESSION ASSESSMENT DEPRESSION ASS ESSMENT [facility] Start: 02-05-2022 COVID-19 VACCINE (5 - Yung risk series) COVID-19 VACCINE (5 - Yung risk series) [facility] Start: 11-27-2021 COVID-19 VACCINE (4 - Booster for Yung series) COVID-19 VACCINE (4 - Booster for Yung series) [facility] Start: 11-04-2021 Hemoglobin A1c/Hemoglobin.total in Blood HBA1C [facility] Start: 10-16-2021 Influenza vaccination C [facility] Start: 03-26-2021 COVID-19 VACCINE (3 - Yung risk 3-dose series) COVID-19 VACCINE (3 - Yung risk 3-dose series) [facility] Start: 03-26-2021 COVID-19 VACCINE (3 - Yung risk series) COVID-19 VACCINE (3 - Yung risk series) [facility] Start: 02-15-2021 ADVANCE DIRECTIVE DISCUSSION ADVANCE DIRECTIVE DISCUSSION [facility] Start: 02-15-2021 DEPRESSION ASSESSMENT DEPRESSION ASS ESSMENT [facility] Start: 01-05-2016 Hepatitis B screening URINE AL BUMIN:CREATININE RATIO [facility] Start: 07-31-2015 Pneumococcal Vaccine : 65+ Years (3 - PCV) Pneumococcal Vaccine: 65+ Years (3 - PCV) [facility] Start: 04-06-2015 Hemoglobin A1c/Hemoglobin.total in Blood HBA1C [facility] Start: 11-22-2010 Hepatitis B surface antibody level LDL CHOLESTEROL [facility] Start: 2009 ADULT PREVNAR-13 ADULT PREVNAR-13 Cl [facility] Start: 2009 PNEUMOVAX AGE 65 AND OVER WITH 5YR LOOKBACK (#1) PNEUMOVAX AGE 65 AND OVER WITH 5YR LOOKBACK (#1) [facility] Start: 1994 SHINGRIX VACCINE (1 of 2) SHINGRIX VACCINE (1 of 2) [facility] Start: 10-18-1963 HEPATITIS A (1 of 2 - Risk 2-dose series) HEPATITIS A (1 of 2 - Risk 2-dose series) [facility] Start: 10-18-1963 Hepatitis A Vaccine (1 of 2 - Risk 2-dose series) Hepatitis A Vaccine (1 of 2 - Risk 2-dose series) [facility] Start: 10-18-1963 SHINGRIX VACCINE (1 of 2) SHINGRIX VACCINE (1 of 2) [facility] Start: 10-18-1963 Urine microalbumin profile [facility] Start: 1962 ANNUAL PCP TEAM EXHIBIT SPECIALIST MATTHEW DISEASE VISIT ANNUAL PCP TEAM CHRONIC DISEASE VISIT [facility] Start: 1956 Adult depression screening assessment DEPRESSION SCREENING [facility] Start: 1954 3 comp foot exam completed DIABETIC FOOT EXAM [facility] Start: 1954 Glaucoma screening Diabetes: R etinopathy Screening [facility] Start: 1954 Hepatitis C antibody , confirmatory test DILATED RETINAL EXAM [facility] Start: 1950 Pneumococcal Vaccine : 65+ (1 - PCV) Pneumococcal Vaccine: 65+ (1 - PCV) [facility] Start: 1950 PNEUMOCOCCAL: 65+ (1 - PCV) PNEUMOCOCCAL: 65+ (1 - PCV) [facility] Start: 1945 HEPATITIS A (1 of 2 - Risk 2-dose series) HEPATITIS A (1 of 2 - Risk 2-dose series) [facility] URINALYSIS, REFLEX MICROSCOPIC URINALYSIS, REFLEX MICROSCOPIC Lab Routine Screening for genitourinary condition Ordered: 10/06/2021 [facility] Work Phone: Comment on above: Ordered: 10/06/2021 URINALYSIS, REFLEX MICROSCOPIC URINALYSIS, REFLEX MICROSCOPIC Lab Routine Screening for genitourinary condition Ordered: 04/02/2022 [facility] Work Phone: Comment on above: Ordered: 04/02/2022 End: 11-17-2022 US LEG ARTERIAL PERIPH [facility] US LEG ARTERIAL PERIPH [facility] Vascular Lab Routine PAD (peripheral artery disease) (HCC) Nonhealing ulcer of heel (HCC) 1 Occurrences starting 11/17/2021 until 11/17/2022 [facility] Work Phone: Comment on above: 1 Occurrences starti ng 11/17/2021 until 11/17/2022 End: 11-17-2022 US LEG VEIN DVT [facility] US LEG VEIN DVT [facility] Vascular Lab Routine Acute deep vein thrombosis (DVT) of proximal end of right lower extremity (HCC) 1 Occurrences starting 11/17/2021 until 11/17/2022 [facility] Work Phone: Comment on above: 1 Occurrences starti ng 11/17/2021 until 11/17/2022 [facility] & VAS DANIEL BROTHERS CT & VAS [facility] Immunizations Immunization Date Immunization Notes Care Provider [facility] 12-11-2021 COVID-19 booster vaccine, age 12+ yr, bivalent ([employer]) Paresh Fonseca MD Work Phone: [facility] 12-11-2021 influenza, high-dose , quadrivalent vaccine (FLUZONE HIGH DOSE QUADRIVALENT) Paresh Fonseca MD Work Phone: [facility] 12-11-2021 influenza virus vaccine, unspecified formulation Ariadna TimmycoAristotl [facility] 10-24-2021 influenza, high dose seasonal, preservative-free Ni Petznick DO Work Phone: [facility] 01-19-2019 influenza, high dose seasonal, preservative-free Ni Petznick DO Work Phone: [facility] 11-25-2017 Seasonal trivalent influenza vaccine, adjuvanted, preservative free Ni Petznick DO Work Phone: [facility] 11-05-2016 influenza, high dose seasonal, preservative-free Ni Petznick DO Work Phone: [facility] 07-30-2014 pneumococcal polysaccharide vaccine, 23 valent Ni Cabrera DO Work Phone: [facility] 03-09-2011 influenza virus vaccine, unspecified formulation Van Lard SHEET METAL FORMER.POLY AREA SUPERVISOR Work Phone: [facility] 12-17-2007 influenza virus vaccine, unspecified formulation Van Lard SHEET METAL FORMER.POLY AREA SUPERVISOR Work Phone: [facility] Work Phone: 02-11-2006 influenza virus vaccine, unspecified formulation Van Lard SHEET METAL FORMER.POLY AREA SUPERVISOR Work Phone: [facility] Work Phone: 12-07-2003 influenza virus vaccine, unspecified formulation Van Lard SHEET METAL FORMER.[facility] Work Phone: [facility] Work Phone: 12-07-2003 pneumococcal polysaccharide vaccine, 23 valent Van Krused SHEET METAL FORMER.[facility] Work Phone: [facility] Work Phone: NEGATED: Highlighted row has not occurred!12-10-2021 COVID-19 booster vaccine, age 12+ yr, bivalent ([employer]) Paresh Fonseca MD Work Phone: [facility] NEGATED: Highlighted row has not occurred!12-10-2021 influenza, high-dose, quadrivalent vaccine (FLUZONE HIGH DOSE QUADRIVALENT) Paresh Fonseca MD Work Phone: [facility] Payers Date Payer Category Payer Medicare MEDICARE MEDICAR E A AND B [id number] 2009-Present [phone] [address] [address] [place] [address] Medicare [id number] [id number] 2009 Medicare [id number] 1.13.159.2.7.3 .[id number] 2009 Unknown [employer] [place] [employer] [place] MEDICARE SUPPLEMENT [id number] 2009-Present [phone] [address] [place] [address] Indemnity [id number] 1.2.840.099807.1.13.159.2.7.3 .[id number] 2009 Unknown [id number]. 1.13.159.2.7.3 .062060.315 2009 Unknown [id number] 2.16.8 40.1.115416.19 2009 Unknown [id number] 1959 Medicare [id number] 1959 Self-pay 1944 Unknown [id number] 2.16.840.1.203647.3.579.2.732 1944 Unknown [id number] 2.16.840.1.293337.3.579.2.593 1944 Unknown [id number] 2.16.840.1.078128.3.579.2.593 1944 Unknown [id number] 2.16.840.1.568050.3.579.2.593 1944 Unknown [id number] 2.16.840.1.793804.3.579.2.593 1944 Unknown [id number] 2.16.840.1.964208.3.579.2.593 1944 Unknown [id number] 2.16.840.1.796973.3.579.2.593 1944 Unknown [id number] 2.16.840.1.489324.3.579.2.593 1944 Unknown [id number] 2.16.840.1.884215.3.579.2.593 1944 Unknown [id number] 2.16.840.1.812044.3.579.2.593 1944 Unknown [id number] 2.16.840.1.630666.3.579.2.593 1944 Unknown [id number] 2.16.840.1.992321.3.579.2.593 1944 Unknown [id number] 2.16.840.1.984904.3.579.2.593 1944 Unknown [id number] 2.16.840.1.788208.3.579.2.593 1944 Unknown [id number] 2.16.840.1.607355.3.579.2.593 1944 Unknown [id number] 2.16.840.1.082414.3.579.2.593 1944 Unknown [id number] 2.16.840.1.215292.3.579.2.593 1944 Unknown [id number] 2.16.840.1.771087.3.579.2.593 1944 Unknown [id number] 2.16.840.1.490449.3.579.2.593 1944 Unknown [id number] 2.16.840.1.991732.3.579.2.593 1944 Unknown [id number] 2.16.840.1.289123.3.579.2.593 1944 Unknown [id number] 2.16.840.1.486737.3.579.2.593 1944 Unknown [id number] 2.16.840.1.511648.3.579.2.593 1944 Unknown [id number] 2.16.840.1.724940.3.579.2.593 1944 Unknown [id number] 2.16.840.1.295000.3.579.2.593 1944 Unknown [id number] 2.16.840.1.598956.3.579.2.593 1944 Unknown [id number] 2.16.840.1.555982.3.579.2.593 1944 Unknown [id number] 2.16.840.1.625114.3.579.2.593 1944 Unknown [id number] 2.16.840.1.292101.3.579.2.593 1944 Unknown [id number] 2.16.840.1.367214.3.579.2.593 1944 Unknown [id number] 2.16.840.1.721238.3.579.2.593 1944 Unknown [id number] 2.16.840.1.325899.3.579.2.593 1944 Unknown [id number] 2.16.840.1.250446.3.579.2.593 1944 Unknown [id number] 2.16.840.1.938368.3.579.2.593 1944 Unknown [id number] 2.16.840.1.537409.3.579.2.593 1944 Unknown [id number] 2.16.840.1.821150.3.579.2.593 1944 Unknown [id number] 2.16.840.1.627145.3.579.2.593 1944 Unknown [id number] 2.16.840.1.791015.3.579.2.593 1944 Unknown [id number] 2.16.840.1.556210.3.579.2.593 1944 Unknown [id number] 2.16.840.1.608010.3.579.2.593 1944 Unknown [id number] 2.16.840.1.237844.3.579.2.593 1944 Unknown [id number] 2.16.840.1.805200.3.579.2.593 1944 Unknown [id number] 2.16.840.1.519099.3.579.2.593 1944 Unknown [id number] 2.16.840.1.823715.3.579.2.593 1944 Unknown [id number] 2.16.840.1.644629.3.579.2.593 1944 Unknown [id number] 2.16.840.1.132683.3.579.2.593 1944 Unknown [id number] 2.16.840.1.966160.3.579.2.593 1944 Unknown [id number] 2.16.840.1.730070.3.579.2.125 9 1944 Unknown [id number] 2.16.840.1.712002.3.579.2.125 9 Medicare Medicare Outpatient [id number] 2T [id number] Unknown [id number] 2.16.840.1.702276.3.579.2.593 Unknown [id number] 2.16.840.1.617927.3.579.2.593 Unknown [id number] 2.16.840.1.155213.3.579.2.531 Social History Date Type Detail Facility Start: 03-09-2011 End: 07-07-2022 Tobacco smoking status NHIS Ex-smoker [facility] Work Phone: End: 02-15-1975 History of tobacco use Current smoker [facility] Work Phone: End: 02-15-1975 History of tobacco use Cigarette Smoker [facility] Work Phone: Start: 04-08-2021 End: 02-26-2022 Alcohol intake Current drinker of alcohol (finding) [facility] Start: 1945 Sex Assigned At Not on file C [facility] Start: 03-09-2011 End: 10-20-2022 Cigarettes smoked current (pack per day) - Reported 1 [facility] Work Phone: Start: 03-09-2011 End: 02-26-2022 Tobacco use and exposure Smokeless tobacco non-user [facility] Start: 09-25-2021 History SDOH Financial 5 [facility] Start: 09-25-2021 History SDOH Food Worry 1 [facility] Start: 09-25-2021 History SDOH Transpo rt Med 2 [facility] Start: 09-14-2021 End: 01-12-2022 Exposure to SARS-CoV-2 (event) Not sure [facility] Start: 02-26-2022 End: 10-20-2022 Sex Assigned At [facility] Work Phone: Start: 1945 Sex Assigned At Male F [facility] How hard is it for y ou to pay for the very basics like food, housing, medical care, and heating Not hard at all [facility] Work Phone: (I/We) worried whebrenden er (my/our) food would run out before (I/we) got money to buy more. Never true [facility] Work Phone: In the past 12 month s, was there a time when you were not able to pay the mortgage or rent on time? No [facility] Work Phone: Start: 03-18-2023 Alcohol intake Ex-drinker (finding) [facility] How often to you hav e a drink containing alcohol? Never [facility] Medical Equipment Procedure Code Equipment Code Equipment Original Text Equipment Identifier Dates Tray Powerline S urecuff 5fr Polyurethane Catheter 1 Lumen Microintroducer - [id number] Start: 12-06-2021 Clinical Notes 06-05-2021 to [...] at about 50-60 systolic. patient with friend/ delivery driver from facility, we will take [...] of the right coronary artery with robust zwvd-uv-zjcuf collaterals. 5. Normal global left ventricular systolic [...] inferior ischemia. 4. Follow up with Dr. Glavez in the [facility] in the next 2 weeks; he may follow up with Dr. Orosco as needed for interventional issues. 5. Follow up wi (more content not included)... [facility] 04-11-2023 Evaluation note Encounter Date Diagnosis [...] (ICD-10 - Z89.619) WC dependent. 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 He is being transported by a delivery driver. 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 CONTINUOUS BLOOD GLUC SENSOR (CrowdparkSTYLE SHAAN 14 DAY SENSOR) MISC Inject 1 [...] mouth in the morning. documented in this encounterMissouri [facility] Medical [id number] Evaluation note* Encounter Date Diagnosis Assessment Notes [...] are maintaining regular scheduled appts with their manager community outreach. No bleeding complications Dec, Hyperlipidemia LDL goal [...] (current) use of insulin (ICD-10 - Z79.4) [facility] Other 10-26-2023 Evaluation note* Encounter Date Diagnosis Assessment Notes Treatment Notes Treatment Clinical Notes Nov, Longstanding persistent atrial fibrillation (ICD-10 - I48.11) This patient is in NSR or rate controlled. This patient is anticoagulated to prevent thromboembolic events. They are maintaining regular scheduled appts with their manager community outreach. 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 No bleeding complications Oct, Type 1 diabetes [...] Z94.0) Continue routine surveillance labs. 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 DX Code Needed. 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 No bleeding complications Sep, Type 1 diabetes [...] for cerebrovascular and cardiovascular disease. 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 Please review and advise. Ariadna Mcdowell, documented in this encounter[facility] Evaluation note* Encounter Date Diagnosis Assessment Notes Treatment Notes Treatment Clinical Notes Aug, Longstanding persistent atrial fibrillation (ICD-10 - I48.11) This patient is in NSR or rate controlled. This patient is anticoagulated to prevent thromboembolic events. They are maintaining regular scheduled appts with their manager community outreach. No s/s bleeding Aug, Type 1 diabetes [...] (ICD-10 - Z94.0) Continue close surveillance w/ [employer] Other 07-26-2023 NoteUT Electrophysiology Consult Note Reason [...] at about 50-60 systolic. patient with friend/ delivery driver from facility, we will take patient to the ER for evaluation --------- Per dr. Alvarez 03/2021 Mr. Almonte, [place] , presents to clinic for routine follow [...] of the right coronary artery with robust jtav-um-ypzqr collaterals. 5. Normal global left ventricular systolic [...] up with Dr. Galvez in the [facility] in the next 2 weeks; he may follow up with Dr. Orosco as needed for interventional issues. 5. Follow up with Dr. Devon Moreira as scheduled. PMH: Past Medical History: Diagnosis Date Abnormal ECG Arrhythmia Atrial fibrillation (CMS/HCC) Chronic kidney disease Coronary artery disease Diabetes mellitus (CMS/HCC) (more content not included)...[facility]07-26-2023 NotePatient here for 1.5 year follow up and device check. Lightheaded in the office today, as BP is very low. He denies chest pain, SOB, palpitations, and bleeding on warfarin. Had routine labs last week. Review of Systems Musculoskeletal: Positive for arthritis, joint pain and myalgias. Neurological: Positive for light-headedness. All other systems reviewed and are negative.[facility] 08-06-2022 Evaluation note* Encounter Date Diagnosis [...] are maintaining regular scheduled appts with their manager community outreach. No bleeding complications Jul, Type 1 diabetes [...] for cerebrovascular and cardiovascular disease. 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 (ICD-10 - Z79.4) Jul, Kidney transplant status (ICD-10 - Z94.0) Monthly labs, ongoing surveillance from transplant clinic [facility] Other 05-15-2023 Progress note Author Sadia Aguilar [facility] June 29, 2022 2:47pm Note Date/Time June 29, 2022 2:46p m [facility] [address] [place] [address] Wound Center Provider Note Signed Patient: Alex Almonte MR#: [id number] : 1945 Acct:[id number] Age/Sex: 76 / M Copies to: DO Sadia Whyte, DAVID~ HPI Date of Visit Date of Visit: Date of Service: 06/29/2022 Time of Service: 14:45 Narrative HPI: 12/30/21 Alex is a 76 year old male presenting to [facility] wound care for aninitial visit for eval and treatment of a sacral/coccyx area pressure ulcer. He resides at [facility]. There is an SNOW PLOW TRACTOR OPERATOR present for the visit. Medicalhoney gel [...] his brief that was cleaned by this conventional underwriter as well as another nursing staff [...] from initial visit here Mode of Arrival/ Balancing Machine Set Up Worker: Facility vehicle Assistive Device Used Today: Wheelchair [...] Ulcer/Injury Staging: Unstageable Bed Appearance: Beefy Red, [place], Yellow and Rolled Edges Percent of Wound [...] <Electronically signed by DAVID Aguilar> 06/29/22 1447 [facility] Work Phone: 1(523) 394-928605-11-2023 Evaluation note* Encounter Date Diagnosis Assessment Notes [...] are maintaining regular scheduled appts with their manager community outreach. No bleeding complications June, Hyperlipidemia LDL goal <100 (ICD-10 - E78.5) Instructed on diet and exercise with continued statin therapy.Discussed the beneficial effects of lowering cholesterol in reducing the risk for cerebrovascular and cardiovascular disease. June, FPC (current) use of insulin (ICD-10 - Z79.4) June, Kidney transplant status (ICD-10 - Z94.0) No s/s rejection [facility] Other 04-24-2023 Progress note Author Sadia Aguilar [facility] June 08, 2022 2:10pm Note Date/Time June 08, 2022 2:1 0pm [facility] [address] [place] [address] Wound Center Provider Note Signed Patient: Alex Almonte MR#: [id number] : 1945 Acct:[id number] Age/Sex: 76 / M Copies to: DO Sadia Whyte, DAVID~ HPI Date of Visit Date of Visit: Date of Service: 06/08/2022 Time of Service: 14:07 Narrative HPI: 12/30/21 Alex is a 76 year old male presenting to [facility] wound care for aninitial visit for eval and treatment of a sacral/coccyx area pressure ulcer. He resides at [facility]. There is an SNOW PLOW TRACTOR OPERATOR present for the visit. Medicalhoney gel [...] his brief that was cleaned by this conventional underwriter as well as another nursing staff [...] from initial visit here Mode of Arrival/ Balancing Machine Set Up Worker: Facility vehicle Assistive Device Used Today: Wheelchair [...] F 73 20 97/39 L Room Air 04/24/23 14:05 06/08/22 14:05 06/08/22 14:05 06/08/22 14:05 [...] Ulcer/Injury Staging: Unstageable Bed Appearance: Beefy Red, [place], Yellow and Rolled Edges Percent of Wound [...] With Patient (min): 15 Dictated By: Sadia Aguilra APRN DD/ [id number] Signed By: <Electronically signed by DAVID Aguilar> 06/08/22 1410 [facility] Work Phone: 1(266) 508-670704-21-2023 Evaluation note* Encounter Date Diagnosis Assessment Notes [...] are maintaining regular scheduled appts with their manager community outreach. 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 No open ulcerations present Pain controlled [facility] Other 03-27-2023 Progress note Author Sadia Aguilar [facility] May 11, 2022 1:41pm Note Date/Time May 11, 2022 1:4 0pm [facility] [address] [place] [address] Wound Center Provider Note Signed Patient: Alex Almonte MR#: [id number] : 1945 Acct:[id number] Age/Sex: 76 / M Copies to: DO Sadia Whyte, SHEET METAL FORMER~ HPI Date of Visit Date of Visit: Date of Service: 05/11/2022 Time of Service: 13:38 Narrative HPI: 12/30/21 Alex is a 76 year old male presenting to [facility] wound care for aninitial visit for eval and treatment of a sacral/coccyx area pressure ulcer. He resides at [facility]. There is an SNOW PLOW TRACTOR OPERATOR present for the visit. Medicalhoney gel [...] his brief that was cleaned by this conventional underwriter as well as another nursing staff [...] from initial visit here Mode of Arrival/ Balancing Machine Set Up Worker: Facility vehicle Assistive Device Used Today: Wheelchair [...] Ulcer/Injury Staging: Unstageable Bed Appearance: Beefy Red, [place] and Yellow Percent of Wound Bed Granulated/Red: [...] <Electronically signed by DAVID Aguilar> 05/11/22 1341 [facility] Work Phone: 1(939) 725-198703-23-2023 Evaluation note* Encounter Date Diagnosis Assessment Notes [...] are maintaining regular scheduled appts with their manager community outreach. Apr, Type 1 diabetes mellitus with hyperglycemia [...] are reviewed at the office visit Apr, FPC (current) use of insulin (ICD-10 - Z79.4) Apr, Kidney transplant status (ICD-10 - Z94.0) Serial labs by clinic Hydrate, avoid NOLBERTO [facility] Other 03-10-2023 NoteHNO ID: [id number] Author: Keyur Brown MD Service: ? Author Type: Physician Type: Progress Notes Filed: 04/24/2022 10:32 AM Note Text: Encounter opened in error, patient not seen.[facility]02-28-2023 Progress note Author Sadia Aguilar [facility] April 14, 2022 2:19pm Note Date/Time April 14, 2022 2:18pm [facility] [address] [place] [address] Wound Center Provider Note Signed Patient: Alex Almonte MR#: [id number] : 1945 Acct:[id number] Age/Sex: 76 / M Copies to: DO Sadia Whyte APRN~ HPI Date of Visit Date of Visit: Date of Service: 04/14/2022 Time of Service: 14:18 Narrative HPI: 12/30/21 Alex is a 76 year old male presenting to [facility] wound care for aninitial visit for eval and treatment of a sacral/coccyx area pressure ulcer. He resides at [facility]. There is an SNOW PLOW TRACTOR OPERATOR present for the visit. Medicalhoney gel [...] his brief that was cleaned by this conventional underwriter as well as another nursing staff [...] from initial visit here Mode of Arrival/ Balancing Machine Set Up Worker: Facility vehicle Assistive Device Used Today: Wheelchair [...] Ulcer/Injury Staging: Unstageable Bed Appearance: Beefy Red, [place] and Yellow Percent of Wound Bed Granulated/Red: [...] 15 Dictated By: Sadia Aguilar APRN DD/ 141 Signed By: <Electronically signed by DAVID Aguilar> 04/14/221418 [facility] Work Phone: 1([phone]) 579-376902-16-2023 NotePatient Outreach (KIMBERLY) ALEX ALMONTE ([id number]) 1945 M [facility] Date Time Provider Department 04/02/22 VAN OLIVAREZ During your visit today, we recorded the following information about you: Allergies As of Date: 04/02/2022 Noted Allergy Reaction PYRIDOSTIGMINE BROMIDE 08/04/2021 8 - GI Upset Date Reviewed: 02/26/2022 Reviewed by: Braden Abel MA - Fully Assessed Visit Diagnosis:Screening for genitourinary condition [Z13.89] Order(s):URINALYSIS, REFLEX MICROSCOPIC [EVZ3261] Order #: [id number] Prescriptions as of 04/06/2022 - tacrolimus IR [...] by mouth daily with lunch. 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 UNCOMPL ADULT-UNCONTRLLED [[id number]] 02/24/2002 KIDNEY TRANSPLANT STATUS [Z94.0] 09/07/2003 PROPHYLACTIC IMMUNOTHERAPY [Z29.8] 07/30/2006 HALF-WAY STEROIDS [IQC2353] 07/30/2006 VITAMIN D DEFICIENCY NOS [E55.9] 09/07/2008 [...] diabetes mellitus with diabetic peripher*11/29/2021 Atherosclerosis of [place] artery of extremity w*11/29/2021 Malnutrition of moderate degree (HCC) [E44.0] 12/01/2021 Dermatitis associated with moisture [L30.8] 12/04/2021 Encounter Status:Closed by CONCETTA HOBBS on 04/06/22[facility] 03-30-2022 Miscellaneous Notes* Telephone Encounter [...] Katina Duque documented in this encounter[facility] Progress note Author Sadia Aguilar [facility] March 24, 2022 3:00pm Note Date/Time March 24, 2022 2 :59pm [facility] [address] [place] [address] Wound Center Provider Note Signed Patient: Alex Almonte MR#: [id number] : 1945 Acct:[id number] Age/Sex: 76 / M Copies to: Devon Moreira,DO Sadia Aguilar, SHEET METAL FORMER~ HPI Date of Visit Date of Visit: Date of Service: 03/24/2022 Time of Service: 14:58 Narrative HPI: 12/30/21 Alex is a 76 year old male presenting to [facility] wound care for aninitial visit for eval and treatment of a sacral/coccyx area pressure ulcer. He resides at [facility]. There is an SNOW PLOW TRACTOR OPERATOR present for the visit. Medicalhoney gel [...] his brief that was cleaned by this conventional underwriter as well as another nursing staff [...] from initial visit here Mode of Arrival/ Balancing Machine Set Up Worker: Facility vehicle Assistive Device Used Today: Wheelchair [...] Ulcer/Injury Staging: Unstageable Bed Appearance: Beefy Red, [place] and Yellow Percent of Wound Bed Granulated/Red: [...] <Electronically signed by DAVID Aguilar> 03/24/22 [address] [facility] Work Phone: 1(285) 799-881701-17-2023 Progress note Author Sadia Aguilar [facility] March 03, 2022 2:41pm Note Date/Time March 03, 2022 2 :41pm [facility] [address] [place] [address] Wound Center Provider Note Signed Patient: Alex Almonte MR#: [id number] : 1945 Acct:[id number] Age/Sex: 76 / M Copies to: DO Sadia Whyte APRN~ HPI Date of Visit Date of Visit: Date of Service: 03/03/2022 Time of Service: 14:38 Narrative HPI: 12/30/21 Alex is a 76 year old male presenting to [facility] wound care for aninitial visit for eval and treatment of a sacral/coccyx area pressure ulcer. He resides at [facility]. There is an SNOW PLOW TRACTOR OPERATOR present for the visit. Medicalhoney gel [...] his brief that was cleaned by this conventional underwriter as well as another nursing staff [...] from initial visit here Mode of Arrival/ Balancing Machine Set Up Worker: Facility vehicle Assistive Device Used Today: Wheelchair [...] % eye drops 1 drp Eye-Both DAILY 12/09/19 [History Confirmed 03/03/22] prednisone 5 mg tablet [...] Ulcer Pressure Ulcer/Injury Staging: Unstageable Bed Appearance: [place] and Yellow Percent of Wound Bed Granulated/Red: 90 Percent of Devitalized: 10 Length (cm): 2.2 Width (cm): 1.8 Depth (cm): 1.9 CM Sq: 3.960 Surrounding Tissue Appearance: [place], Hyperpigmented and Satellite lesions Surrounding Tissue Temp: [...] <Electronically signed by DAVID Aguilar> 03/03/22 [address] [facility] Work Phone: 1(746) 919-209101-13-2023 Miscellaneous Notes* Telephone Encounter - RAUL Davidson - 02/27/2022 10:24 AM EST Patient phones requesting refills as follows: Per pts sister takes 1 mg in AM and 1 mg in PM Requested Prescriptions Pending Prescriptions Disp Refills tacrolimus IR (PROGRAF) 1 mg capsule Sig: Take 2 capsules by mouth DAILY (6 AM). Please review and advise. RAUL Davidson documented in this encounterSelect Medical [facility]01-12-2023 NoteHNO ID: [id number] Author: Hina Peterson MD Service: ? Author Type: Physician Type: Progress Notes Filed: 02/26/2022 4:31 PM Note Text: [facility] DEPARTMENT OF VASCULAR SURGERY OUTPATIENT VISIT DATE [...] his postop visit. He has been in [facility] since then and has been recovering from his acute on chronic congestive heart failure. His wound has largely been healing without any issues and the maxwell and sutures were removed at the nursing facility. He comes here with a lateral wound eschar. He denies any fevers, chills, or any drainage. He is on anticoagulation. 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 Patient on mycophenolate mofetil , cellcept and prednisone Mixed hyperlipidemia due to type 2 diabetes mellitus ([facility]) 11/29/2021 Osteomyelitis ([facility]) 11/29/2021 Paroxysmal atrial fibrillation ([facility]) Renal transplant, status post SA node dysfunction ([facility]) s/p pacemaker Type 2 diabetes mellitus with diabetic neuropathy, with long-term current use of insulin ([facility]) 02/24/2002 PAST SURGICAL HISTORY Procedure [...] by mouth daily with lunch. Magic Cup Baldwin with lunch aspirin, enteric coated (ASPIRIN, ENTERIC COATED) 81 mg EC tablet Take 1 tablet by mouth once daily. predniSONE (DELTASONE) 5 mg tablet TAKE 1 TABLET BY MOUTH EVERY DAY oxyCODONE IR (ROXICODONE) 5 mg immediate release tablet 1-2 tablets by ORAL/FEEDING TUBE route every 3 hours as needed. Food Supplement, Lactose-Free (ENSURE MAX (more content not included)... [facility]01-12-2023 History of Present illness Narrative* Hina Peterson MD - 02/26/2022 4:25 PM EST Images from the original note were not included. [facility] DEPARTMENT OF VASCULAR SURGERY OUTPATIENT VISIT DATE [...] his postop visit. He has been in [facility] since then and has been recovering from his acute on chronic congestive heart failure. His wound has largely been healing without any issues and the maxwell and sutures were removed at the [facility] facility. He comes here with a lateral wound eschar. He denies any fevers, chills, or any drainage. He is on anticoagulation. 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 Magic Cup Baldwin with lunch aspirin, enteric coated (ASPIRIN, ENTERIC [...] check on progress of wound healing SIGNATURE: iHna Peterson MD, MD PATIENT NAME: Alex Almonte DATE: February 26, 2022 TIME: 4:26 PM documented in this encounterSelect Medical [facility]01-05-2023 Miscellaneous Notes* Telephone Encounter - Gwen Beard [...] Home and cell number(Ask for Alex's nurse) [phone] Diagnosis 4 mo f/u wound check Yumiko Mcclain documented in this encounterSelect Medical [facility]01-05-2023 Miscellaneous Notes* Telephone Encounter - Augusta Medrano [...] Medrano RN documented in this encounterSelect Medical [facility]01-04-2023 Miscellaneous Notes* Telephone Encounter - Martina Rossi [...] Tavares MA documented in this encounterSelect Medical [facility]12-27-2022 Progress note Author Sadia Aguilar [facility] February 10, 2022 3:47pm Note Date/Time February 10, 2022 3:47pm [facility] [address] [place] [address] Wound Center Provider Note Signed Patient: Alex Almonte MR#: [id number] : 1945 Acct:[id number] Age/Sex: 76 / M Copies to: DO Sadia Whyte APRN~ HPI Date of Visit Date of Visit: Date of Service: 02/10/2022 Time of Service: 15:44 Narrative HPI: 12/30/21 Alex is a 76 year old male presenting to [facility] wound care for aninitial visit for eval and treatment of a sacral/coccyx area pressure ulcer. He resides at [facility]. There is an SNOW PLOW TRACTOR OPERATOR present for the visit. Medicalhoney gel [...] his brief that was cleaned by this conventional underwriter as well as another nursing staff member, few weeks to follow up Subjective Pain Coccyx: Pain Description: Intermittent Pain Intensity: 0 Wound/Ulcer History When did wound start?: 4 weeks ago- from initial visit here Mode of Arrival/ Balancing Machine Set Up Worker: Facility vehicle Assistive Device Used Today: Wheelchair [...] Ulcer Pressure Ulcer/Injury Staging: Unstageable Bed Appearance: [place] and Yellow Percent of Wound Bed Granulated/Red: 90 Percent of Devitalized: 10 Length (cm): 2.5 Width (cm): 2.3 Depth (cm): 2.1 CM Sq: 5.750 Surrounding Tissue Appearance: [place], Hyperpigmented and Satellite lesions Surrounding Tissue Temp: [...] <Electronically signed by DAVID Aguilar> 02/10/22 [address] [facility] Work Phone: 1(455) 316-980612-22-2022 NoteHNO ID: [id number] Author: Asia Pike MD Service: ? Author Type: Physician Type: Progress Notes Filed: 02/05/2022 9:38 AM Note Text: [facility] Follow up Portions of this note [...] right BKA Home BP: 90-100/60-70; In office: New Complaints: 20 years, 10 months post kidney transplant Feeling lightheaded and dizzy this AM with lower BP. Offered water and snacks patient declined. Indra scale at [facility]: 166.2 lbs per patient. Bed sore on coccyx causing discomfort. Being changed regularly at SNF- reported to be smaller around but still as deep. Patient not very up to date with medications. Patient brought paperwork from [employer] with all medications being received. Patient unsure if they have been drawing labs regularly. Last Tac from 01/19: 12.9 and K 5.9. In need of current labs. Lab orders will be sent with patient and follows as below: Kidney and Pancreas Transplant Standing Lab Orders [address] [facility] [address] [place], [place] [address] February 05, 2022 Alex Almonte 1945 [id number] STANDARD TESTING: Diagnosis Codes: Z94.0 Kidney Transplant [...] AT YOUR LABORATORY FACILITY AND FAX TO [phone]. PLEASE CALL [phone]. Provider: Dr. Pike Current Outpatient Medications Medication [...] by mouth daily with lunch. Magic Cup Baldwin with lunch aspirin, enteric coated (ASPIRIN, ENTERIC COATED) 81 mg EC tablet Take 1 tablet by mouth once daily. atorvastatin (LIPITOR) 40 mg tablet 1 tablet by ORAL/FEEDING TUBE route daily at bedtime. (more content not included)...[facility]12-22-2022 History of Present illness Narrative* Asia Pike MD - 02/05/2022 8:20 AM EST Images from the original note were not included. [facility]ic [facility] Follow up Portions of this note [...] Indra scale at [facility]: 166.2 lbs per patient. Bed sore on coccyx causing discomfort. Being changed regularly at [facility]- reported to be smaller around but still as deep. Patient not very up to date with medications. Patient brought paperwork from [employer] with all medications being received. Patient unsure if they have been drawing labs regularly. Last Tac from 01/19: 12.9 and K 5.9. In need of current labs. Lab orders will be sent with patient and follows as below: Kidney and Pancreas Transplant Standing Lab Orders [address] [place], [place] [address] February 05, 2022 Alex Almonte 1945 [id number] STANDARD TESTING: Diagnosis Codes: Z94.0 Kidney Transplant [...] AT YOUR LABORATORY FACILITY AND FAX TO [phone]. PLEASE CALL [phone]. Provider: Dr. Pike Current Outpatient Medications Medication [...] by mouth daily with lunch. Magic Cup Baldwin with lunch aspirin, enteric coated (ASPIRIN, ENTERIC [...] Pike MD documented in this encounterSelect Medical [facility]12-06-2022 Progress note Author Sadia Aguilar [facility] January 20, 2022 2:21pm Note Date/Time January 20, 2022 2 :21pm [facility] [address] [place] [address] Wound Center Provider Note Signed Patient: Alex Almonte MR#: [id number] : 1945 Acct:[id number] Age/Sex: 76 / M Copies to: DO Sadia Whyte APRN~ HPI Date of Visit Date of Visit: Date of Service: 01/20/2022 Time of Service: 14:17 Narrative HPI: 12/30/21 Alex is a 76 year old male presenting to [facility] wound care for aninitial visit for eval and treatment of a sacral/coccyx area pressure ulcer. He resides at [facility]. There is an SNOW PLOW TRACTOR OPERATOR present for the visit. Medicalhoney gel [...] from initial visit here Mode of Arrival/ Balancing Machine Set Up Worker: Facility vehicle Assistive Device Used Today: Wheelchair [...] Ulcer Pressure Ulcer/Injury Staging: Unstageable Bed Appearance: [place] and Yellow Percent of Wound Bed Granulated/Red: 40 Percent of Devitalized: 60 Length (cm): 5.2 Width (cm): 3.4 Depth (cm): 1.8 CM Sq: 17.680 Surrounding Tissue Appearance: [place] and Hyperpigmented Surrounding Tissue Temp: Warm Drainage [...] <Electronically signed by DAVID Aguilar> 01/20/22 14[address] [facility] Work Phone: 1(273) 815-299712-06-2022 Miscellaneous Notes* Telephone Encounter - Van Olivarez APRN.POLY AREA SUPERVISOR - 01/20/2022 1:12 PM EST Labs noted from yesterday. Pt is currently residing at [facility], I spoke with the Nurse, the results has been addressed by Physician caring for pt. He had been placed on Chlor Con and this has been discontinued and hyperkalemia has been treated. Van Olivarez APRN.DIAMANTE documented in this encounterSelect Medical [facility]11-28-2022 Surgical operation note* Brief Op Note - Misbah Landis PA-C - 01/12/2022 10:41 AM EST BRIEF OPERATIVE / PROCEDURE NOTE LOG ID: [id number] SURGERY/PROCEDURE DATE: 01/12/2022 INCISION/PROCEDURE START TIME: 10:32 AM INCISION CLOSE/PROCEDURE END TIME: 10:35 AM SURGEON(S)/PROCEDURALIST(S) AND INSPECTOR AND SORTER(S): Misbah Landis PA-C SURGERY/PROCEDURE(S): Removal tunneled vascular access catheter under local anesthesia ANESTHESIA: Procedural Sedation FINDINGS: Catheter removed intact ESTIMATED BLOOD LOSS: 0 ml SPECIMENS: None COMPLICATIONS: None PRE-OP/PRE-PROCEDURE DIAGNOSIS: Foot Ulcer POST-OP/POST-PROCEDURE DIAGNOSIS: Same as Preop SIGNATURE: Misbah Landis PA-C PATIENT NAME: Alex Almonte DATE: January 12, 2022 TIME: 10:42 AM documented in this encounterSelect Medical [facility]11-22-2022 Nurse Note* Laxmi Archibald RN - 01/06/2022 1:55 PM EST Pre-procedure instructions: [facility] patient's [facility], Munira Brothers [phone][facility] andconfirmed appt. for Gerhard removal scheduled on 01/12/22, at [facility]. If instructions are not followed your procedure [...] signed. Arrival at 9:30am to desk QB-1 ([facility]) and check in for your procedure. Strip Roller/Transportation: How will you be arriving for your procedure? Ambulance service. To be arranged by [facility]. If you develop any of the following symptoms before your procedure, please call [phone]. Chills, joint pain, rash, sore throat, cough, loss of smell, reddened eyes, vomiting, abdominal pains, diarrhea, loss of taste, severe headache, weakness, bruising or bleeding, fever, muscle pain, shortness of breath Recovery expectations: You can expect to be in recovery for 30 minutes following the procedure. Written instructions provided to patient via [employer] If you have any questions please call [phone] documented in this encounterSelect Medical [facility]11-15-2022 Progress note Author Sadia Aguilar [facility] December 30, 2021 1:49pm Note Date/Time December 30, 2021 1:49pm [facility] [address] [place] [address] Wound Center Provider Note Signed Patient: Alex Almonte MR#: [id number] : 1945 Acct:[id number] Age/Sex: 76 / M Copies to: DO Sadia Whyte APRN~ HPI Date of Visit Date of Visit: Date of Service: 12/30/2021 Time of Service: 13:44 Narrative HPI: 12/30/21 Alex is a 76 year old male presenting to [facility] wound care for aninitial visit for eval and treatment of a sacral/coccyx area pressure ulcer. He resides at [facility]. There is an SNOW PLOW TRACTOR OPERATOR present for the visit. Medicalhoney gel [...] start?: 4 weeks ago Mode of Arrival/ Balancing Machine Set Up Worker: Facility vehicle Assistive Device Used Today: Wheelchair [...] 0.1 CM Sq: 38.500 Surrounding Tissue Appearance: [place] and Hyperpigmented Surrounding Tissue Temp: Warm Drainage [...] <Electronically signed by DAVID Aguilar> 12/30/21 [address] [facility] Work Phone: 1(945) 310-957011-15-2022 History of Present illness Narrative* Paresh Fonseca [...] is currently at [facility] in [facility] Seen on video together with [...] following this at [facility] WBC 6.0, creatinine -- 0.8. [...] by mouth daily with lunch. Magic Cup Baldwin with lunch aspirin, enteric coated (ASPIRIN, ENTERIC [...] is a 76 year old male from [facility]. 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 History of PAD CAD status post CABG, diabetes, atrial fibrillatioN He originally presented [facility] for having altered mental status [...] 3. Status post right heel I&D at [facility] on 11/24/2021. 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 4. CKD - s/p gerhard placement 5. immunocompromised Status post right open above the ankle [id number] - Enterobacter and MRSA from cultures Gram-positive [...] will need to coordinate with his SNF [phone] --our ID office will need to arrange for IR gerhard removal. Return to ID as needed 10 Minutes spent via virtual visit. SIGNATURE: Paresh Fonseca MD PATIENT NAME: Alex Almonte DATE: December 30, 2021 TIME: 9:52 AM documented in this encounterSelect Medical [facility]11-01-2022 Miscellaneous Notes* Telephone Encounter - Sulma Pardo - 12/16/2021 3:13 PM EDT Pt occupational therapy specialist is requesting orders for Stomp ampushield to be taken off pressure relief because it is causing sores on the thigh. Thanks, Sulma Pardo Restrictive Preparation Operator documented in this encounterSelect Medical Ohio[facility]10-31-2022 Miscellaneous Notes* Telephone Encounter - Gwen Alfredo Adm Asst I - 12/15/2021 4:11 PM EDT Rupa LYLES from [facility] [phone] called to report IV Vancomycin was started until today. Patient missed 3 days, should patient makeup missed doses? Please advise. Gwen Alfredo Adm Asst I documented in this encounterSelect Medical [facility]10-21-2022 Instructions* Patient Instructions* Paresh Fonseca MD - [...] serious illness Are taking any medications (prescription, phio-dzh-kkfuanf, vitamins, or herbal products) How will I receive EVUSHELD? EVUSHELD consists of two investigational medicines, tixagevimab and cilgavimab. You will receive 1 dose of EVUSHELD, consisting of 2 separate injections (tixagevimab and cilgavimab). EVUSHELD will be given to you by your healthcare provider as 2 intramuscular injections, given one after the other. Viruses can roll changer time (mutate) and develop into a [...] caused by certain SARS-CoV-2 variants: Viruses can roll changer time (mutate) and develop into a [...] treatment or prevention of COVID-19 go to https://www.fda.gov/idtbwyfip-skdwhjghoxcq-yia- response/was-deexo-zqthtnsftz-gou-bkoryw-sixcwiwsv/whrpfubtq-bgz-tkjvukvqrmdpn for more information. It is your choice [...] not go away. Report side effects to [employer] at www.[place].gov/medwatch or call 9-646-OGZ-7574 or call [employer] . Additional Information If you have questions, visit the website or call the telephone number provided below. Website Telephone number http://TIKI.VN How can I learn more about COVID-19? Ask your healthcare provider. Visit https://www.cdc.gov/COVID19 Contact your local or state public health department. What is an Emergency Use Authorization? The [place] FDA has made EVUSHELD (tixagevimab co-packaged with cilgavimab) available under an emergency access mechanism called an Emergency Use Authorization EUA. The EUA is supported by a [place] of Health and Human Service (HHS) declaration [...] monohydrate, polysorbate 80, sucrose, water. Distributed by: [employer] [place], [place] Manufactured for: [employer] [place] [employer] 2021. All rightsreserved. documented in this encounterSelect Medical Ohiohealth [facility] Dublin10-21-2022 Miscellaneous Notes* Telephone Encounter - Paresh Fonseca MD - 12/05/2021 3:05 PM EDT Evusheld (tixagevimab/cilgavimab) Eligibility and Patient Discussion The patient agrees to receive Evusheld (tixagevimab 300 mg and cilgavimab 300 mg) at [place]. The patient verbalized understanding of repeating a COVID test 72 hours prior to the injections. called up patient in response to her [email or web address] message today she tested covid negative on a rapid test on Wednesday this week Discussed evushed fact sheet and she agrees to proceed she will retest again today to be scheduled for Friday 12/08 at [facility] Paresh Fonseca MD documented in this encounterSelect Medical Ohio[facility]10-03-2022 Instructions* Patient Instructions* No Reeder DO - 11/17/2021 4:26 PM EDT -- continue coumadin -- will get vascular ultrasound for vein and artery of your right leg -- will have you see my interventional cardiology partner regarding your peripheral artery disease and if your artery disease is impairing your wound healing for the leg ulcer documented in this encounterSelect Medical Ohiohealth [facility]10-03-2022 History of Present illness Narrative* No Reeder DO - 11/17/2021 3:53 PM EDT Images from the original note were not included. [facility] [place] [facility] Department of Cardiovascular Medicine SECTION [...] 13 Units subcutaneously every morning. insulin lispro-aabc (CHET GRANADOSPEN U-100 INSULIN) 100 unit/mL insulin pen Inject [...] by mouth. Take one (1) tablet - latanoprost(XALATAN 0.005 % EYE DROPS) Use 1 [...] DVT scan. Leg elevation. No Reeder DO, [facility] V[facility] documented in this encounterSelect Medical [facility]08-16-2022 History of Past illness Narrative* Problem Noted Date Resolved Date Altered tissue perfusion documented as of this encounter (statuses as of 09/30/2021) [address]16-2022 History of Past illness Narrative* Problem Noted Date Resolved Date Altered tissue perfusion documented as of this encounter (statuses as of 10/09/2021) [address]16-2022 History of Past illness Narrative* Problem Noted Date Resolved Date Altered tissue perfusion documented as of this encounter (statuses as of 11/18/2021) [address]16-2022 History of Past illness Narrative* Problem Noted Date Resolved Date Altered tissue perfusion documented as of this encounter (statuses as of 12/01/2021) [address]16-2022 History of Past illness Narrative* Problem Noted Date Resolved Date Altered tissue perfusion documented as of this encounter (statuses as of 12/05/2021) [address]16-2022 History of Past illness Narrative* Problem Noted Date Resolved Date Altered tissue perfusion 16/2 022 documented as of this encounter (statuses as of 12/08/2021) [address]16-2022 History of Past illness Narrative* Problem Noted Date Resolved Date Altered tissue perfusion 16/2 022 documented as of this encounter (statuses as of 12/08/2021) [address]16-2022 History of Past illness Narrative* Problem Noted Date Resolved Date Altered tissue perfusion 16/2 022 documented as of this encounter (statuses as of 12/12/2021) [address]16-2022 History of Past illness Narrative* Problem Noted Date Resolved Date Altered tissue perfusion 16/2 022 documented as of this encounter (statuses as of 12/15/2021) [address]16-2022 History of Past illness Narrative* Problem Noted Date Resolved Date Altered tissue perfusion 16/2 022 documented as of this encounter (statuses as of 12/16/2021) [address]16-2022 History of Past illness Narrative* Problem Noted Date Resolved Date Altered tissue perfusion 16/2 022 documented as of this encounter (statuses as of 12/31/2021) [address]16-2022 History of Past illness Narrative* Problem Noted Date Resolved Date Altered tissue perfusion 16/2 022 documented as of this encounter (statuses as of 01/13/2022) [address]16-2022 History of Past illness Narrative* Problem Noted Date Resolved Date Altered tissue perfusion 16/2 022 documented as of this encounter (statuses as of 01/20/2022) [address]16-2022 History of Past illness Narrative* Problem Noted Date Resolved Date Altered tissue perfusion 16/2 022 documented as of this encounter (statuses as of 02/06/2022) [address]16-2022 History of Past illness Narrative* Problem Noted Date Resolved Date Altered tissue perfusion /16/2 022 documented as of this encounter (statuses as of 02/20/2022) [place] [address] History of Past illness Narrative* Problem Noted Date Resolved Date Altered tissue perfusion 16/2 022 documented as of this encounter (statuses as of 02/26/2022) [address]16-2022 History of Past illness Narrative* Problem Noted Date Resolved Date Altered tissue perfusion 022 documented as of this encounter (statuses as of 02/27/2022) [address]16-2022 History of Past illness Narrative* Problem Noted Date Resolved Date Altered tissue perfusion 022 documented as of this encounter (statuses as of 03/21/2022) [address]2022 History of Past illness Narrative* Problem Noted Date Resolved Date Altered tissue perfusion 022 documented as of this encounter (statuses as of 03/30/2022) [address]16-2022 History of Past illness Narrative* Problem Noted Date Resolved Date Altered tissue perfusion 022 documented as of this encounter (statuses as of 04/06/2022) [address]16-2022 History of Past illness Narrative* Problem Noted Date Resolved Date Altered tissue perfusion 022 documented as of this encounter (statuses as of 05/13/2022) [address]16-2022 History of Past illness Narrative* Problem Noted Date Diagnosed Date Resolved Date Altered tissue perfusion documented as of this encounter (statuses as of 2022) [address]16-2022 History of Past illness Narrative* Problem Noted Date Diagnosed Date Resolved Date Altered tissue perfusion documented as of this encounter (statuses as of 10/29/2022) [address]16-2022 Miscellaneous Notes* Telephone Encounter - Katina [...] Katina Duque [facility] Miscellaneous Notes* Telephone Encounter - Van Olivarez [...] Rosibel Daniel documented [facility] Miscellaneous Notes* Telephone Encounter - Van Olivarez APRN.CNP - 06/05/2021 4:46 PM EDT Spoke with pt regarding latest results, scr. at baseline. TAC level 8.6 prev two levels in 5 range.He believes latest level would be 12hr trough. No changes for now, if next level >7, can consider if reduction appropriate. He understands. Van Olivarez APRN.CNP [facility] Diagnosis Screening for genitourinary condition Screening for other and unspecified genitourinary condition documented in this encounter [facility]* Diagnosis Acute deep vein thrombosis (DVT) of proximal end of right lower extremity (HCC)- Primary PAD (peripheral artery disease) (HCC) Peripheral vascular disease, unspecified Nonhealing ulcer of heel (HCC) Anticoagulation management encounter Encounter for therapeutic drug monitoring documented in this encounter [facility] note* Diagnosis Encounter for prophylactic measures, unspecified- Primary [facility]* Diagnosis Kidney replaced by transplant- Primary documented in this encounter [facility] note* Diagnosis MRSA bacteremia- Primary Bacteremia Diabetic foot ulcer with osteomyelitis (HCC) Type II or unspecified type diabetes mellitus with other specified manifestations, not stated as uncontrolled ILIANA (acute kidney injury) (HCC) Acute kidney failure, unspecified documented in this encounter [facility] note* Diagnosis Kidney replaced by transplant- Primary 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 [facility] current use of immunosuppressive drug documented in this encounter [facility]* Diagnosis Hx of BKA, right (HCC)- Primary PAD (peripheral artery disease) ([facility]) Peripheral vascular disease, unspecified Mixed [...] long-term current use of insulin ([facility]) Paroxysmal atrial fibrillation (HCC) Atrial fibrillation documented in this encounter [facility] note* Diagnosis Screening for genitourinary condition Screening for other and unspecified genitourinary condition documented in this encounter [facility]* Diagnosis Onset Date Resolution Status At high risk for skin breakdown chronic Diabetes chronic Fecal incontinence chronic Limited mobility chronic Poor appetite chronic Pressure ulcer of sacral region, unstageable chronic Candidiasis resolved [facility] Work Phone: Evaluation noteNo [facility] [employer] Other Evaluation note* Diagnosis Kidney replaced by transplant- Primary documented in this encounter [facility] note* Diagnosis 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 ([facility]/HCC) documented [facility] this encounter [facility] HealthcareHistory general Narrative - Reported* Type [...] COLONOSCOPY 1995,2001, 2014 Hospitalization History see above [place] Other Progress note Author Sadia Aguilar [facility] July 20, 2022 1:48pm Note Date/Time July 20, 2022 1:48p m [facility] [address] [place] [address] Wound Center Provider Note Signed Patient: Alex Almonte MR#: [id number] : 1945 Acct:[id number] Age/Sex: 76 / M Copies to: DO Sadia Whyte, SHEET [employer] FORMER~ HPI Date of Visit Date of Visit: Date of Service: 07/20/2022 Time of Service: 13:46 Narrative HPI: 12/30/21 Alex is a 76 year old male presenting to [facility] wound care for aninitial visit for eval and treatment of a sacral/coccyx area pressure ulcer. He resides at [facility]. There is an SNOW PLOW TRACTOR OPERATOR present for the visit. Medicalhoney gel [...] his brief that was cleaned by this conventional underwriter as well as another nursing staff [...] from initial visit here Mode of Arrival/ Balancing Machine Set Up Worker: Facility vehicle Assistive Device Used Today: Wheelchair [...] 10 Dictated By: Sadia Aguilar APRN DD/ 45 Signed By: <Electronically signed by DAVID Aguilar> 07/20/22 [address] [facility] Work Phone: Reason for referral (narrative)* Outpatient Procedure (Routine) - Authorized Specialty Diagnoses / Procedures Referred By Felicia carreno [facility] Diagnoses PAD (peripheral artery disease) (HCC) Nonhealing ulcer of heel (HCC) Procedures US LEG ARTERIAL PERIPH UNL VAS LAB DUP-SCAN LXTR ART/ARTL BPGS UNI/LMTD STUDY No Reeder DO [address] [place] [id number] [facility] [address] [address] Referral ID Status Reason Start Date Expiration Date Visits Requested Visits Authorized [id number] Authorized Auto-Generat ed Referral 11/17/2021 11/17/2022 1 1 * Outpatient Procedure (Routine) - Authorized Specialty Diagnoses / Procedures Referred By Felicia carreno Referred To Contact [facility] [place] Diagnoses Acute deep vein thrombosis (DVT) of proximal end of right lower extremity (HCC) Procedures US LEG VEIN DVT UNL VAS LAB DUP-SCAN XTR VEINS UNILATERAL/LIMITED STUDY No Reeder DO [address] [place] [address] [facility] [place] [address] Referral ID Status Reason Start Date Expiration Date Visits Requested Visits Authorized [id number] Authorized Auto-Generat ed Referral 11/17/2021 11/17/2022 1 1 * Consult, Test, Treat (Routine) - Authorized Specialty Diagnoses / Procedures Referred By Felicia carreno Referred To Contact Cardiology Diagnoses PAD (peripheral artery disease) (HCC) Nonhealing ulcer of heel (HCC) Procedures CONSULT TO CARDIOLOGY OFFICE/OUTPATIENT [facility] 60-74 MINUTES Savanah Marcelo MD [address] [place] [address] Referral ID Status Reason Start Date Expiration Date Visits Requested Visits Authorized [id number] Authorized PCP Requested Referral 11/17/2021 11/17/2022 1 1 [facility] Summary Purpose Family History No Family History Records Found Relationship Condition Age at Onset Recorded Date/T kartik father Aneurysm Unknown father Parkinson's disease Unknown Advance Directives No Advanced Directives Records FoundDocuments on File Type Date Recorded Patient [place] Department Manager Expl anation Advance Directive(s) Latest Code [...] Maker Relationship: M ajority of Adult Siblings (training representative) DNR-CCA 09/26/2021 11:56 AM 10/01/2021 2:18 [...] Decision Maker Relationship: Majority of Adult Siblings (training representative) Code Status History Code Status Date [...] Reason for Visit Chief Complaint Open Wound ([facility]) Reason for Visit At high [...] and content) DATE CREATED AUTHOR 02/20/2021 [facility] DATE CREATED AUTHOR AUTHOR'S ORGANIZ ATION 07/25/2022 [facility] DATE CREATED AUTHOR AUTHOR'S ORGANIZ ATION 08/16/2022 [facility] DATE CREATED AUTHOR AUTHOR'S ORGANIZ ATION 01/14/2023 [facility] DATE CREATED AUTHOR AUTHOR'S ORGANIZ ATION 05/25/2023 [facility] DATE CREATED AUTHOR AUTHOR'S ORGANIZ ATION 06/19/2023 [facility] EPIC Source Comments (unrecognize d section and content) In the event this informatio n is protected by the Federal Confidentiality of Alcohol and Drug Abuse Patient Records regulations: The Federal rules restrict any use of the information to criminally investigate or prosecute any alcohol or drug abuse patient.[facility] the event this information is protected by the Federal Confidentiality of Alcohol and Drug Abuse Patient Records regulations: The Federal rules restrict any use of the information to criminally investigate or prosecute any alcohol or drug abuse patient.[facility] the event this information is protected by the Federal Confidentiality of Alcohol and Drug Abuse Patient Records regulations: The Federal rules restrict any use of the information to criminally investigate or prosecute any alcohol or drug abuse patient.[facility] Dublin[facility] the event this information is protected by the Federal Confidentiality of Alcohol and Drug Abuse Patient Records regulations: The Federal rules restrict any use of the information to criminally investigate or prosecute any alcohol or drug abuse patient.[facility] Dublin[facility] the event this information is protected by the Federal Confidentiality of Alcohol and Drug Abuse Patient Records regulations: The Federal rules restrict any use of the information to criminally investigate or prosecute any alcohol or drug abuse patient.[facility] the event this information is protected by the Federal Confidentiality of Alcohol and Drug Abuse Patient Records regulations: The Federal rules restrict any use of the information to criminally investigate or prosecute any alcohol or drug abuse patient.[facility] Dublin[facility] the event this information is protected by the Federal Confidentiality of Alcohol and Drug Abuse Patient Records regulations: The Federal rules restrict any use of the information to criminally investigate or prosecute any alcohol or drug abuse patient.[facility] Dublin[facility] the event this information is protected by the Federal Confidentiality of Alcohol and Drug Abuse Patient Records regulations: The Federal rules restrict any use of the information to criminally investigate or prosecute any alcohol or drug abuse patient.[facility] Dublin[facility] the event this information is protected by the Federal Confidentiality of Alcohol and Drug Abuse Patient Records regulations: The Federal rules restrict any use of the information to criminally investigate or prosecute any alcohol or drug abuse patient.[facility] Dublin[facility] the event this information is protected by the Federal Confidentiality of Alcohol and Drug Abuse Patient Records regulations: The Federal rules restrict any use of the information to criminally investigate or prosecute any alcohol or drug abuse patient.[facility] Dublin[facility] the event this information is protected by the Federal Confidentiality of Alcohol and Drug Abuse Patient Records regulations: The Federal rules restrict any use of the information to criminally investigate or prosecute any alcohol or drug abuse patient.[facility] Dublin[facility] the event this information is protected by the Federal Confidentiality of Alcohol and Drug Abuse Patient Records regulations: The Federal rules restrict any use of the information to criminally investigate or prosecute any alcohol or drug abuse patient.[facility] Dublin[facility] the event this information is protected by the Federal Confidentiality of Alcohol and Drug Abuse Patient Records regulations: The Federal rules restrict any use of the information to criminally investigate or prosecute any alcohol or drug abuse patient.[facility] Dublin[facility] the event this information is protected by the Federal Confidentiality of Alcohol and Drug Abuse Patient Records regulations: The Federal rules restrict any use of the information to criminally investigate or prosecute any alcohol or drug abuse patient.[facility] Dublin[facility] the event this information is protected by the Federal Confidentiality of Alcohol and Drug Abuse Patient Records regulations: The Federal rules restrict any use of the information to criminally investigate or prosecute any alcohol or drug abuse patient.[facility] Dublin[facility] the event this information is protected by the Federal Confidentiality of Alcohol and Drug Abuse Patient Records regulations: The Federal rules restrict any use of the information to criminally investigate or prosecute any alcohol or drug abuse patient.[facility] Dublin[facility] the event this information is protected by the Federal Confidentiality of Alcohol and Drug Abuse Patient Records regulations: The Federal rules restrict any use of the information to criminally investigate or prosecute any alcohol or drug abuse patient.[facility] Dublin[facility] the event this information is protected by the Federal Confidentiality of Alcohol and Drug Abuse Patient Records regulations: The Federal rules restrict any use of the information to criminally investigate or prosecute any alcohol or drug abuse patient.[facility] Dublin[facility] the event this information is protected by the Federal Confidentiality of Alcohol and Drug Abuse Patient Records regulations: The Federal rules restrict any use of the information to criminally investigate or prosecute any alcohol or drug abuse patient.[facility] DublinIn the event this information is protected by the Federal Confidentiality of Alcohol and Drug Abuse Patient Records regulations: The Federal rules restrict any use of the information to criminally investigate or prosecute any alcohol or drug abuse patient.[facility] Dublin[facility] the event this information is protected by the Federal Confidentiality of Alcohol and Drug Abuse Patient Records regulations: The Federal rules restrict any use of the information to criminally investigate or prosecute any alcohol or drug abuse patient.[facility] Dublin[facility] the event this information is protected by the Federal Confidentiality of Alcohol and Drug Abuse Patient Records regulations: The Federal rules restrict any use of the information to criminally investigate or prosecute any alcohol or drug abuse patient.[facility] DublinIn the event this information is protected by the Federal Confidentiality of Alcohol and Drug Abuse Patient Records regulations: The Federal rules restrict any use of the information to criminally investigate or prosecute any alcohol or drug abuse patient.[facility] DublinIn the event this information is protected by the Federal Confidentiality of Alcohol and Drug Abuse Patient Records regulations: The Federal rules restrict any use of the information to criminally investigate or prosecute any alcohol or drug abuse patient.[facility] Dublin[facility] the event this information is protected by the Federal Confidentiality of Alcohol and Drug Abuse Patient Records regulations: The Federal rules restrict any use of the information to criminally investigate or prosecute any alcohol or drug abuse patient.[facility] DublinIn the event this information is protected by the Federal Confidentiality of Alcohol and Drug Abuse Patient Records regulations: The Federal rules restrict any use of the information to criminally investigate or prosecute any alcohol or drug abuse patient.[facility] Reason for Visit (unrecogniz ed section and [...] Care Teams (unrecognized sec tion and content) [employer] Mason Relationship Specialty Start Date End Date Devon Moreira, DO [address] [place] [address] PCP - General 05/27/00 [employer] Mason Relationship Specialty Start Date End Date Devon Moreira, DO [address] [place] [address] PCP - General 05/27/00 [employer] Mason Relationship Specialty Start Date End Date Devon Moreira, DO [address] [place] [address] PCP - General 05/27/00 [employer] Mason Relationship Specialty Start Date End Date Devon Moreira, DO [address] [place] [address] PCP - General 05/27/00 [employer] Relationship Specialty Start Date End Date Devon Moreira, DO [address] [place] [address] PCP - General 05/27/00 [employer] Mason Relationship Specialty Start Date End Date Devon Moreira, DO [address] [place] [address] PCP - General 05/27/00 [employer] Mason Relationship Specialty Start Date End Date Devon Moreira, DO [address] [place] [address] PCP - General 05/27/00 [employer] Mason Relationship Specialty Start Date End Date Devon Moreira, DO [address] [place] [address] PCP - General 05/27/00 [employer] Mason Relationship Specialty Start Date End Date Devon Moreira, DO [address] [place] [address] PCP - General 05/27/00 [employer] Mason Relationship Specialty Start Date End Date Devon Moreira, DO [address] [place] [address] PCP - General 05/27/00 [employer] Mason Relationship Specialty Start Date End Date Devon Moreira, DO [address] [place] [address] PCP - General 05/27/00 [employer] Mason Relationship Specialty Start Date End Date Devon Moreira, DO [address] [place] [address] PCP - General 05/27/00 [employer] Mason Relationship Specialty Start Date End Date Devon Moreira, DO [address] [place] [address] PCP - General 05/27/00 [employer] Mason Relationship Specialty Start Date End Date Devon Moreira, DO [address] [facility] [place] [address] PCP - General 05/27/00 Co[employer] Oven Mason Relationship Specialty Start Date End Date Devon Moreira, DO [address] [facility] [place] [address] PCP - General 05/27/00 Co[employer] Mason Relationship Specialty Start Date End Date Devon Moreira, DO [address] [facility] [place] [address] PCP - General 05/27/00 [employer] Mason Relationship Specialty Start Date End Date Devon Moreira, DO [address] [facility] [place] [address] PCP - General 05/27/00 [employer] Mason Relationship Specialty Start Date End Date Devon Moreira, DO [address] [facility] [place] [address] PCP - General 05/27/00 [employer] Mason Relationship Specialty Start Date End Date Devon Moreira, DO [address] [facility] [place] [address] PCP - General 05/27/00 Team Status: Active Member Role Status Dates Devon Moreira DO Primary Care Provider Active Team Status: Inactive Member Role Status Dates Devon Moerira DO Primary Care Provider Active Sadia Aguilar APRN Attending Provider Active [employer] Relationship Specialty Start Date End Date Devon Moreira, DO [address] [facility] [place] [address] PCP - General 05/27/00 [employer] Mason Relationship Specialty Start Date End Date eDvon Moreira, DO [address] [facility] [place] [address] PCP - General 05/27/00 [employer] Mason Relationship Specialty Start Date End Date Ni Cabrera DO [address] [facility] [address] [place] [address] PCP - ACO Reach 07/09/22 Devon Moreira MD [address] [facility] [place] [id number] PCP - General Internal Medicine 07/14/22 PRN Active and Recently Administ ered Medications (unrecognized section and content) Medication Order 01/10/2022 01/11/2022 01/12/2022 lidocaine (PF) 10 mg/mL (1 %) injection (XYLOCAINE) SUBCUTANEOUS, X (OR/PROCEDURE) PRN, Starting on Wed01/12/22 at 1032, Until Wed01/13/22 at 0303, Intraprocedure 1032 (Given - Provid er: Vani Hdz APRN.POLY AREA SUPERVISOR) Goals (unrecognized section and content) Goals may [...] BE BASED ON THE PRIMARY CLINICAL RECORDS. [email or web address] provides no warranty or guarantee of the accuracy or completeness of information in this document.
[2023-07-07 07:39] LABS: Basophils Absolute Auto 0.1 10^3/uL (0.0-0.1); Basophils Percent Auto 0.7 % (0.2-2.0); Eosinophils Absolute Auto 0.3 10^3/uL (0.0-0.7); Eosinophils Percent Auto 4.3 % (0.9-7.0); Hematocrit 27.6 % (42.0-54.0); Hemoglobin 8.6 g/dL (14.0-18.0); Immature Granulocytes Abs Auto 0.02 10^3/uL (0.00-0.03); Immature Granulocytes Pct Auto 0.3 % (0.0-0.5); Mean Corpuscular HGB Conc 31.2 g/dL (29.9-35.2); Mean Corpuscular Hemoglobin 25.1 pg (25.9-34.0); Mean Corpuscular Volume 80.7 fL (80.0-94.0); Mean Platelet Volume 10.5 fL (9.5-13.5); Monocytes Absolute Auto 0.8 10^3/uL (0.3-0.8); Monocytes Percent Auto 11.7 % (1.7-12.0); Neutrophils Absolute Auto 3.5 10^3/uL (1.4-6.5); Platelet Count 201 10^3/uL (150-450); Red Blood Count 3.42 10^6/uL (4.70-6.10); Red Cell Distribution Width 15.9 % (11.0-15.0); White Blood Count 6.7 10^3/uL (4.0-11.0)
[2023-07-07 07:42] LABS: INR 2.58; Prothrombin Time 24.9 sec (9.0-11.6)
[2023-07-07 08:25] LABS: Anion Gap 13.1; BUN Creatinine Ratio 35.9; Calcium 8.4 mg/dL (8.5-10.1); Carbon Dioxide 23.8 mmol/L (21.0-32.0); Chloride 105 mmol/L (98-107); Estimated GFR (African America >60 (>=60); Estimated GFR (Non-African Ame 53 (>=60); Glucose 166 mg/dL (74-106); Magnesium 2.1 mg/dL (1.8-2.4); Phosphorus 4.7 mg/dL (2.6-4.7); Potassium 3.9 mmol/L (3.5-5.1); Sodium 138 mmol/L (136-145)
== END 2023-07-07 01:50 | disposition home or self-care (01) ==
LOC: LAB 01:49
PROVIDERS: PCP Internal Medicine; Visit Provider Internal Medicine
DX: N18.9 Chronic kidney disease, unspecified (principal)
CPT/HCPCS: 36415; 80048; 80197; 83735; 84100; 85025; 85610

== ENCOUNTER 2023-07-14 00:48 | Outpatient (REF) | payer MEDICARE, OTHER, SELFPAY ==
--- OUTSIDE RECORDS SUMMARY | 2023-07-14 01:09 | XMS_ITS ---
Patient Summarization (C-CDA 2.1 CCD) Created on: July 14, 2023 ALEX ALMONTE : 1945 Sex: Male Author Organization Sample organization Care Team Providers Care Senior Financial Reporting Accountant Name Role Phone PROVIDER, UNKNOWN Attending Unavailable [...] BRANDI Attending Unavailable BROTHERS, BRANDI Admitting Unavailable BROTHERSBRANDI Consulting Unavailable BALL, DR TAM Consulting Unavailable [...] BALL, DR TAM Primary Care Unavailable FAGGIONATO, NILDA Attending Unavailable FAGGIONATO, NILDA Admitting Unavailable BALL, DR TAM Primary Care Unavailable FAGGIONATO, NILDA Consulting Unavailable MISC, DR RYDER Admitting Unavailable [...] Unavailable BALL, DR TAM Primary Care Unavailable TORIKOWILLIAM Attending Unavailable TODD, [...] Unavailable DO Devon Moreira Primary Care Provider [phone] DAVID Aguilar Attending Provider Sadia Aguilar Attending Unavailable Sadia Aguilar Admitting Unavailable Devon Moreira Primary Care Unavailable DEVON MOREIRA Referring Unavailable HINA PETERSON Attending Unavailable DEVON MOREIRA Primary Care Unavailable NILDA CHEN Referring Unavailable DEVON MOREIRA Primary Care Unavailable PetNi moreno DO Unavailable [phone] Devon Moreira MD Primary Care Provider [facility] [...] [facility] Work Phone: (1 source) Pyridostigmine Drug Allergy 2 Nausea Only [facility] Encounters Encounter Date Encounter Type Care Provider Facility Start: 06-17-2023 End: 06-17-2023 ambulatory NI CABRERA Not Available Start: 05-19-2023 End: 05-19-2023 ambulatory [facility] Start: 04-11-2023 End: 04-11-2023 ambulatory Devon Moreira Other [employer] Other Start: 04-11-2023 Telephone encounter Devon NUNEZ [facility] Start: 03-18-2023 End: 03-18-2023 ambulatory NI CABRERA Not Available Start: 03-18-2023 End: 03-18-2023 Office outpatient visit 25 minutes Ni Cabrera DO Work Phone: [facility] [phone] Comment on above: 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 ([facility]/HCC) (Primary Dx); 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); 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); Type 1 diabetes mellitus with hypoglycemia and without coma (CMS/HCC); 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 ([facility]/HCC) Start: 02-17-2023 End: 02-17-2023 ambulatory Devon Moreira Other [employer] Other Start: 02-17-2023 Telephone encounter Devon Manzo [facility] Start: 01-14-2023 End: 01-14-2023 ambulatory Devon Moreira Other [employer] Other Start: 01-14-2023 Sbsq nursing facil c are/day minor complj 15 min [facility] Start: 12-10-2022 End: 12-10-2022 ambulatory Devon Moreira Other [employer] Other Start: 12-10-2022 Sbsq nursing facil c are/day minor complj 15 min Devon Moreira [facility] Start: 11-12-2022 End: 11-12-2022 ambulatory Devon Moreira Other [employer] Other Start: 11-12-2022 Sbsq nursing facil c are/day minor complj 15 min [facility] Start: 10-16-2022 Refill Asia Pike MD Work Phone: [facility] Comment on above: Med Change Request Start: 10-12-2022 End: 10-12-2022 ambulatory Devon Moreira Other [employer] Other Start: 10-12-2022 Telephone encounter Devon Moreira MAYRA [facility] Start: 10-08-2022 End: 10-08-2022 ambulatory Devon Moreira Other [employer] Other Start: 10-08-2022 Sbsq nursing facil c are/day new problem 25 min [facility] Start: 09-22-2022 [facility] Comment on above: Rx Refills Start: 09-10-2022 End: 09-10-2022 ambulatory Devon Moreira Other [employer] Other Start: 09-10-2022 Sbsq nursing facil c are/day new problem 25 min [facility] Start: 09-09-2022 End: 09-09-2022 ambulatory [facility] Start: 08-06-2022 End: 08-06-2022 ambulatory Devon Moreira Other [employer] Other Start: 08-06-2022 Sbsq nursing facil c are/day new problem 25 min [facility] Start: 07-22-2022 End: 07-22-2022 ambulatory Devon Moreira Other [employer] Other Start: 07-22-2022 Telephone encounter Devon Moreira [facility] Start: 07-20-2022 End: 07-20-2022 ambulatory Sadia Aguilar Facility:[facility] Start: 07-20-2022 End: 07-20-2022 ambulatory DO Devon Moreira Work Phone: [facility] Work Phone: Start: 07-20-2022 End: 07-20-2022 Discharged Recurring DO Devon Moreira Work Phone: [facility] [place] Work Phone: Start: 07-13-2022 End: 07-13-[address] DEVON MOREIRA Facility:[facility]1 Start: 07-10-2022 End: 07-10-[address] DEVON MOREIRA Facility:[facility] Start: 07-03-2022 End: 07-03-[address] DEVON MOREIRA Facility:[facility] Start: 06-26-2022 End: 06-26-[address] DEVON MOREIRA Facility:[facility]1 Start: 06-26-2022 End: 06-26-[address] DEVON MOREIRA Facility:[facility]1 Start: 06-25-2022 End: 06-25-2022 ambulatory Devon Moreira Other [place] [employer] Other Start: 06-25-2022 Sbsq nursing facil c are/day minor complj 15 min Devon Moreira [facility] Start: 06-19-2022 End: 06-19-[address] DEVON MOREIRA Facility:[facility]1 Start: 06-15-2022 End: 07-15-2022 ambulatory SHAIKH Kate MURRAY Facility:[facility]1 Start: 06-12-2022 End: 06-12-[address] DOCTOR WALSH Facility:[facility]1 Start: 06-05-2022 Sbsq nursing facil c are/day new problem 25 min [facility] Start: 06-05-2022 End: 06-05-[address] DEVON MOREIRA [facility] [employer] Other Start: 05-29-2022 End: 05-29-[address] DEVON MOREIRA Facility:[facility]1 Start: 05-22-2022 End: 05-22-[address] DEVON MOREIRA Facility:[facility]1 Start: 05-20-2022 End: 05-20-[address] DEVON MOREIRA Facility:[facility]1 Start: 05-18-2022 End: 06-12-2022 ambulatory SHAIKH Kate MURRAY Facility:[facility]1 Start: 05-15-2022 End: 05-15-[address] DEVON MOREIRA Facility:[facility]1 Start: 05-13-2022 End: 05-13-2022 ambulatory Van Olivarez MICA LAYER.CONTENT ANALYST Work Phone: [facility] [place] Comment on above: results Start: 05-13-2022 E-mail encounter fro m caregiver Van Olivarez MICA LAYER.CONTENT ANALYST Work Phone: [facility] Start: 05-08-2022 End: 05-08-[address] DEVON MOREIRA Facility:[facility]1 Start: 05-07-2022 End: 05-07-2022 ambulatory Devon Moreira Other [employer] Other Start: 05-07-2022 Sbsq nursing facil c are/day new problem 25 min Devon Moreira [facility] Start: 05-06-2022 End: 05-06-2022 ambulatory [...] MOREIRA Facility:[facility]1 Start: 04-02-2022 ambulatory Van cortes MICA LAYER.CONTENT ANALYST Work Phone: [facility] [place] Start: 04-01-2022 End: 04-01-[address] DEVON MOREIRA Facility:[facility]1 Start: 03-22-2022 Anne Pike MD Work Phone: [facility] Comment on above: Med Change Request Start: 03-21-2022 ambulatory SHAIKH Kate MURRAY Facilit y:H1 Start: 03-11-2022 End: 03-11-[address] DEVON MOREIRA Facility:[facility]1 Start: 02-27-2022 Refill Samira Serna [facility] Comment on above: Rx Refills Start: 02-26-2022 End: 02-26-2022 ambulatory DEVON MOREIRA Facility:[place] Start: 02-26-2022 End: 02-26-2022 Patient encounter procedure [...] fibrillation (HCC) Start: 02-25-2022 End: 02-25-2022 ambulatory NILDA LINDSEY Facility:[facility]1 Start: 02-25-2022 End: 03-17-2022 ambulatory SHAIKH Kate MURRAY Facility:[facility]1 Start: 02-19-2022 Telephone encounter [facility] Comment on above: Results (Tacro 23.9) Start: 02-18-2022 Telephone encounter Devon Moreira DO Work Phone: NOC Comment on above: Appointment Refill Request Start: 02-05-2022 End: 02-06-[address] DEVON MOREIRA Facility:[facility]1 Start: 02-05-2022 End: 02-06-2022 ambulatory NILDA CHEN Facility:[place] Start: 02-05-2022 End: 02-05-2022 Patient encounter procedure [facility] Work Phone: [facility] Comment on above: Kidney replaced by t ransplant (Primary Dx); 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; [facility]PC current use of immunosuppressive drug Start: 01-26-2022 End: 01-26-[address] DEVON MOREIRA Facility:[facility]1 Start: 01-20-2022 Telephone encounter Vanbetzy Olivarez APRN.CONTENT ANALYST Work Phone: [facility] Comment on above: Results Start: 01-19-2022 End: 01-19-[address] DEVON MOREIAR Facility:[facility]1 Start: 01-16-2022 ambulatory SHAIKH Kate MURRAY Facilit y:H1 Start: 01-12-2022 End: 01-12-2022 Subsequent hospital visit by physician Alissa Chavira APRN.CONTENT ANALYST Work Phone: Angio Comment on above: ILIANA (acute kidney in jury) ([facility]) [N17.9] Start: 12-30-2021 End: 12-30-2021 ambulatory Paresh Fonseca MD Work Phone: Infectious Disease Comment on above: MRSA bacteremia (Arabella munira Dx); Diabetic foot ulcer with osteomyelitis (HCC) Start: 12-30-2021 End: 12-30-2021 Telemedicine consultation with patient Paresh Fonseca MD Work Phone: [facility] Start: 12-29-2021 End: 12-29-2021 ambulatory [...] above: [facility] Start: 12-08-2021 Orders Only Nilda Richmondmisael soto MICA LAYER.CONTENT ANALYST Work Phone: Transplant Center Comment on above: Kidney replaced by t ransplant (Primary Dx) Start: 12-07-2021 ambulatory Paresh Fonseca MD Work Phone: [facility] Comment on above: [employer] Start (copat s top 12/27/21) Start: 12-05-2021 Telephone encounter Paresh Fonseca MD Work Phone: Infectious Disease Comment on above: Patient Update (evus held discussion/) Start: 12-01-2021 Follow-up encounter [facility] Provider [facility] Start: 12-01-2021 Patient encounter procedure [...] management encounter Start: 11-14-2021 End: 11-15-2021 ambulatory [facility] Facility:H1 Start: 10-24-2021 End: 11-15-2021 ambulatory DIAMONDSONALI MURRAY Facility:[facility]1 Start: 10-22-2021 End: 10-23-2021 ambulatory [facility] Facility:H1 Start: 10-06-2021 ambulatory Van cortes MICA LAYER.CONTENT ANALYST Work Phone: [facility] Start: 09-30-2021 Refill Asia Pike MD Work Phone: [facility] Comment on above: Refill Request Start: 09-19-2021 End: 09-24-2021 Evaluation and management of inpatient DR PROSPER LEES Facility:H1 Start: 09-18-2021 End: 09-19-[address] DEVON MOREIRA Facility:[facility]1 Start: 07-11-2021 Refill Asia Pike MD Work Phone: [facility] [place] Comment on above: Refill Request Start: 06-05-2021 Telephone encounter Van Olivarez APRN.CONTENT ANALYST Work Phone: [facility] [place] Comment on above: Results Start: 02-05-2021 End: 02-13-2021 ambulatory UNKNOWN PROVIDER Facility:[facility] Medical Equipment Procedure Code Equipment Code Equipment Original Text Equipment Identifier Dates Tray Powerline S urecuff 5fr Polyurethane Catheter 1 Lumen Microintroducer - [id number] Start: 12-06-2021 Immunizations Immunization Date Immunization Notes Care Provider Fa cili 12-11-2021 COVID-19 booster vaccine, age 12+ yr, bivalent (PFIZER-BIONTCompass-EOS) Paresh Fonseca MD Work Phone: [facility] 12-11-2021 influenza, high-dose , quadrivalent vaccine (FLUZONE HIGH DOSE QUADRIVALENT) Paresh Fonseca MD Work Phone: [facility] 12-11-2021 influenza virus vaccine, unspecified formulation [facility] 10-24-2021 influenza, high dose seasonal, preservative-free Ni Petznick DO Work Phone: [facility] 01-19-2019 influenza, high dose seasonal, preservative-free Ni Petznick DO Work Phone: [facility] 11-25-2017 Seasonal trivalent influenza vaccine, adjuvanted, preservative free Ni Petznick DO Work Phone: [facility] 11-05-2016 influenza, high dose seasonal, preservative-free Ni Petznick DO Work Phone: [facility] 07-30-2014 pneumococcal polysaccharide vaccine, 23 valent Ni Petznick DO Work Phone: [facility] 03-09-2011 influenza virus vaccine, unspecified formulation Van Olivarez APRN.CONTENT ANALYST Work Phone: [facility] 12-17-2007 influenza virus vaccine, unspecified formulation Van Krusejaylan HERNANDEZ.[facility] Work Phone: [facility] Work Phone: 02-11-2006 influenza virus vaccine, unspecified formulation Van Krusejaylan RILEYN.[facility] Work Phone: [facility] Work Phone: 12-07-2003 influenza virus vaccine, unspecified formulation Van Sher RILEYN.[facility] Work Phone: [facility] Work Phone: 12-07-2003 pneumococcal polysaccharide vaccine, 23 valent Van Olivarez APRN.[facility] Work Phone: [facility] Work Phone: NEGATED: Highlighted row has not occurred!12-10-2021 COVID-19 booster vaccine, age 12+ yr, bivalent (PFIZER-BIONTCompass-EOS) Paresh Fonseca MD Work Phone: [facility] NEGATED: Highlighted row has not occurred!12-10-2021 influenza, high-dose, quadrivalent vaccine (FLUZONE HIGH DOSE QUADRIVALENT) Paresh Fonseca MD Work Phone: [facility] Medications Current Medications Medication Drug Class(es) Dates [...] 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 [phone] MG (6 sources) take 155-852 tablets by mouth twice daily [facility] [phone] MG 1 tablet Orally twice daily Active take 155-852 tablets by mouth four times daily take 155-852 tablets by mouth four times daily [facility] [phone] MG 1 tablet Orally Four times a day Active krill oil (7 sources) Krill Oil Not-Ta jn take 1 capsule by mo ut once daily in the evening krill oil [...] oral tablet (20 sources) Loop Diuretic Start: take 1 tablet by mouth in [...] Take 1 tablet by debi once daily. Take 3 mg Wednesday, , [...] needed. docusate sodium 50 mg / sennosides, mcfp 8.6 mg oral tablet (20 sources) Start: [...] Comment on above: TAKE 2 CAPSULES BY OUT TWICE DAILY. nut.tx.gluc intol,lf,soy-fiber (BOOST GLUCOSE CONTROL) [...] by mouth daily with lunch. Magic [employer] [place] with lunch 7110 mL 0 12/11/2021 Active Comment on above: Take 237 mL by mouth daily with lunch. [employer] [place] with lunch polyethylene glycol 3350 79256 mg powder for oral solution (20 sources) [...] Calcineurin Inhibitor Immunosuppressant Start: 09-24-19 End: 10-17-19 23 tacrolimus IR (PROGRAF) 1 mg capsule Take [...] Active Comment on above: Take by mouth. Payers Date Payer Category Payer Medicare MEDICARE MEDICAR E A AND B [id number] 2009-Present [phone] [place] [address] Medicare [id number] [id number] 2009 Medicare [id number] 1.13.159.2.7.3 .030687.315 2009 Unknown [employer] MARTHA BHAKTA ROWAN THOMAS [place] MEDICARE SUPPLEMENT [id number] 2009-Present [phone] [id number] [place] [address] Indemnity [id number] [id number] .[id number] 2009 Unknown [id number]. 1.13.159.2.7.3 .297392.315 2009 Unknown [id number] 2.16.8 40.1.374886.19 2009 Unknown [id number] 1959 Medicare [id number] 1959 Self-pay 1944 Unknown [id number] 2.16.840.1.708786.3.579.2.732 1944 Unknown [id number] 2.16.840.1.378725.3.579.2.593 1944 Unknown [id number] 2.16.840.1.798945.3.579.2.593 1944 Unknown [id number] 2.16.840.1.423984.3.579.2.593 1944 Unknown [id number] 2.16.840.1.558318.3.579.2.593 1944 Unknown [id number] 2.16.840.1.082952.3.579.2.593 1944 Unknown [id number] 2.16.840.1.199823.3.579.2.593 1944 Unknown [id number] 2.16.840.1.656266.3.579.2.593 1944 Unknown [id number] 2.16.840.1.016719.3.579.2.593 1944 Unknown [id number] 2.16.840.1.751874.3.579.2.593 1944 Unknown [id number] 2.16.840.1.347705.3.579.2.593 1944 Unknown [id number] 2.16.840.1.372354.3.579.2.593 1944 Unknown [id number] 2.16.840.1.005657.3.579.2.593 1944 Unknown [id number] 2.16.840.1.130906.3.579.2.593 1944 Unknown [id number] 2.16.840.1.607019.3.579.2.593 1944 Unknown [id number] 2.16.840.1.616408.3.579.2.593 1944 Unknown [id number] 2.16.840.1.137915.3.579.2.593 1944 Unknown [id number] 2.16.840.1.701760.3.579.2.593 1944 Unknown [id number] 2.16.840.1.353172.3.579.2.593 1944 Unknown [id number] 2.16.840.1.636717.3.579.2.593 1944 Unknown [id number] 2.16.840.1.949245.3.579.2.593 1944 Unknown [id number] 2.16.840.1.190260.3.579.2.593 1944 Unknown [id number] 2.16.840.1.456845.3.579.2.593 1944 Unknown [id number] 2.16.840.1.554886.3.579.2.593 1944 Unknown [id number] 2.16.840.1.368832.3.579.2.593 1944 Unknown [id number] 2.16.840.1.617668.3.579.2.593 1944 Unknown [id number] 2.16.840.1.092146.3.579.2.593 1944 Unknown [id number] 2.16.840.1.761474.3.579.2.593 1944 Unknown [id number] 2.16.840.1.582184.3.579.2.593 1944 Unknown [id number] 2.16.840.1.890674.3.579.2.593 1944 Unknown [id number] 2.16.840.1.848751.3.579.2.593 1944 Unknown [id number] 2.16.840.1.261380.3.579.2.593 1944 Unknown [id number] 2.16.840.1.311807.3.579.2.593 1944 Unknown [id number] 2.16.840.1.835911.3.579.2.593 1944 Unknown [id number] 2.16.840.1.263871.3.579.2.593 1944 Unknown [id number] 2.16.840.1.609811.3.579.2.593 1944 Unknown [id number] 2.16.840.1.508875.3.579.2.593 1944 Unknown [id number] 2.16.840.1.578681.3.579.2.593 1944 Unknown [id number] 2.16.840.1.070645.3.579.2.593 1944 Unknown [id number] 2.16.840.1.749179.3.579.2.593 1944 Unknown [id number] 2.16.840.1.351318.3.579.2.593 1944 Unknown [id number] 2.16.840.1.316452.3.579.2.593 1944 Unknown [id number] 2.16.840.1.418098.3.579.2.593 1944 Unknown [id number] 2.16.840.1.491015.3.579.2.593 1944 Unknown [id number] 2.16.840.1.542217.3.579.2.593 1944 Unknown [id number] 2.16.840.1.060225.3.579.2.593 1944 Unknown [id number] 2.16.840.1.278895.3.579.2.593 1944 Unknown [id number] 2.16.840.1.908617.3.579.2.125 9 1944 Unknown [id number] 2.16.840.1.579500.3.579.2.125 9 Medicare Medicare Outpatient [id number] 2T [id number] Unknown [id number] 2.16.840.1.404960.3.579.2.593 Unknown [id number] 2.16.840.1.705252.3.579.2.593 Unknown [id number] 2.16.840.1.900664.3.579.2.531 Plan of Treatment Date Care Activity Detail Author Start: 06-17-2023 End: 06-17-2023 Patient encounter procedure 06/17/2023 2:15 PM EDT Office Visit [facility] [address] [address] Ni Cabrera DO [address] [facility] [address] [place] [address] [facility] 230 Start: 06-16-2023 Hemoglobin A1c measurement Diabetes: Hemoglobin A1C [facility] Start: 02-26-2023 BP CONTROLLED (<130/80) [...] [facility] [place] Start: 10-16-2022 Influenza vaccination C [facility] Start: 05-15-2022 Medicare Annual Wellness (AWV) Medicare Annual Wellness (AWV) [facility] Start: 04-08-2022 BP CONTROLLED (<130/80) [...] [facility] [place] Start: 10-16-2021 Influenza vaccination C [facility] Start: 03-26-2021 COVID-19 VACCINE (3 [...] [facility] Start: 07-31-2015 Pneumococcal Vaccine : 65+ Years (3 - PCV) Pneumococcal Vaccine: 65+ Years (3 - PCV) [facility] Start: 04-06-2015 Hemoglobin A1c/Hemoglobin.total in Blood HBA1C [facility] Start: 11-22-2010 Hepatitis B surface antibody level LDL CHOLESTEROL [facility] Start: 2009 ADULT PREVNAR-13 ADULT PREVNAR-13 Cl [facility] Start: 2009 PNEUMOVAX AGE 65 AND OVER [...] [facility] [place] Start: 1962 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 MATTHEW DISEASE VISIT ANNUAL PCP TEAM CHRONIC DISEASE VISIT [facility] Start: 1956 Adult depression screening assessment DEPRESSION SCREENING [facility] Start: 1954 3 comp foot exam completed DIABETIC FOOT EXAM [facility] Start: 1954 Glaucoma screening Diabetes: R etinopathy Screening [facility] Start: 1954 Hepatitis C [...] Routine Screening for genitourinary condition Ordered: 10/06/2021 [facility] Work Phone: Comment on above: Ordered: 10/06/2021 URINALYSIS, REFLEX MICROSCOPIC URINALYSIS, REFLEX MICROSCOPIC Lab Routine Screening for genitourinary condition Ordered: 04/02/2022 [facility] Work Phone: Comment on above: Ordered: 04/02/2022 End: 11-17-2022 US LEG ARTERIAL PERIPH UNL VAS LAB US LEG ARTERIAL PERIPH UNL VAS LAB Vascular Lab Routine PAD (peripheral artery disease) (HCC) Nonhealing ulcer of heel (HCC) 1 Occurrences starting 11/17/2021 until 11/17/2022 [facility] Work Phone: Comment on above: 1 Occurrences starti ng 11/17/2021 until 11/17/2022 End: 11-17-2022 US LEG VEIN DVT UNL VAS LAB US LEG VEIN DVT UNL VAS LAB Vascular Lab Routine Acute deep vein thrombosis (DVT) of proximal end of right lower extremity (HCC) 1 Occurrences starting 11/17/2021 until 11/17/2022 [facility] Work Phone: Comment on above: 1 Occurrences starti ng 11/17/2021 until 11/17/2022 [facility] & VAS [facility]ANIEL [facility] & VAS [facility] Problems Active Problems Problem Classification Problem Date [...] Coronary arteriosclerosis; Translations: [Atherosclerotic heart disease of [place] coronary artery without angina pectoris] Onset: 7 [...] current use of immunosuppressive drug; Translations: [Other fdc (current) drug therapy] Episodic Other aftercare (13 sources) Long-term current use of insulin; Translations: [oysterman (current) use of insulin] Episodic Other aftercare (10 sources) FPC (current) use of insulin; Translations: [COOK'S ASSISTANT CURRENT USE OF INSULIN] Onset: 2 Episodic Other aftercare (5 sources) oysterman (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 of anticoagulants; Translations: [ASSISTED CURRNT USE ANTICOAGULANTS] Onset: 3 Episodic Other [...] 07-30-2006 Episodic Other aftercare (2 sources) 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; Translations: [OTH COOK'S ASSISTANT CURRENT DRUG THERAPY] Onset: 02-05-2022 Episodic Other aftercare (4 sources) Encounter for orthopedic aftercare following surgical amputation; Translations: [ENC ORTHOPED AFTERCARE FLW SURG AMP] Onset: 12-22-2022 Episodic Other aftercare (4 sources) oysterman (current) use of antibiotics; Translations: [ASSISTED CURRENT USE ANTIBIOTICS] Onset: 12-20-2021 Episodic Other aftercare (1 source) oysterman (current) use of aspirin; Translations: [ASSISTED CURRENT USE OF ASPIRIN] Onset: 01-19-2022 Episodic [...] Unclassified (9 sources) Longstanding persistent atrial fibrillation Procedures Date Procedure Procedure Detail Performing Clinician Start: 05-19-2023 Follow-up visit Follow-up CAITY IBRAHIM Start: 03-18-2023 Hemoglobin glycosyla rk a1c Ni Cabrera DO Work Phone: Start: 02-05-2022 Creatinine other source Asia Pike MD Work Phone: Start: 02-05-2022 Urnls dip stick/tabl et rgnt auto w/o microscopy Asia Pike MD Work Phone: Start: 01-12-2022 Prothrombin time Alissa Chavira APRN.CONTENT ANALYST Work Phone: Start: 12-01-2021 [facility]EM[facility]ER CLINIC CHECK [facility] Provider Start: 11-29-2021 Microscopic examinat ion of blood, culture DR PROSPER LEES Comment on above: Performed By: #### B [id number] ####[facility] [id number] [id number] Farhat Elvis Start: 11-27-2021 Insertion of Infusio n Device [...] History of coronary artery bypass surgery Ni Whitetiffanie DO Work Phone: Start: 03-23-2012 History of renal transplant History of renal transplant Ni Sandhushawnee DO Work Phone: Start: 09-07-2003 History of renal transplant KIDNEY TRANSPLANT STATUS Van Olivarez MICA LAYER.CONTENT ANALYST Work Phone: History of renal transplant Kidney replaced by transplant Nilda Chen MICA LAYER.CONTENT ANALYST Work Phone: History of renal transplant Kidney replaced by transplant [facility] Work Phone: History of renal transplant Devon Moreira Other History of renal transplant Kidney replaced by transplant Asia Pike MD Work Phone: History of renal transplant Devon Moreira Other Results Test Name Value Interpretation Reference Range Facility Office Visiton 05-19-2023 Follow-up visit [id number] Alex Almonte 1945 M Date Provider Department Center 05/19/2023 166-CAITY IBRAHIM CARD [facility] Family History Problem Relation Age of Onset Cancer Mother Aneurysm Father Cancer Father Parkinsonism Father Family Status - Relation Status Age at Mother Father Level of Service:02676 [place] OFFICE/OUTPATIENT ESTABLISHED LOW MDM 20 MIN Reason for Visit and Comments: Follow-up [951319] - 6 month follow up Normal [facility] HbA1c (Bld) [Mass fraction]o n 03-18-2023 Interpretation and review of laboratory results Normal [facility] Veset [facility] Veset POCT glycosylated hemoglobin (Hb A1C) docked deviceon 03-18-2023 HbA1c (Bld) [Mass fraction] 7.8 % [facility] Veset CNPNon 12-25-2022 CNPN Telephone (TXCTGL) ALEX ALMONTE ([id number]) 1945 M Date Time Provider Department 12/25/22 KIDNEY TXP COORDINATORS TXCTGL During your visit today, we recorded the following information about you: Duane Ryan 12/25/2022 10:41 AM Signed Labs 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 DIABETES UNCOMPL ADULT-UNCONTRLLED [[id number]] 02/24/2002 KIDNEY TRANSPLANT STATUS [Z94.0] 09/07/2003 PROPHYLACTIC IMMUNOTHERAPY [Z29.89] 07/30/2006 ASSISTED STEROIDS [CGY3315] 07/30/2006 VITAMIN D DEFICIENCY NOS [E55.9] 09/07/2008 [...] diabetes mellitus with diabetic peripher*11/29/2021 Atherosclerosis of [place] artery of extremity w*11/29/2021 Malnutrition of moderate degree (HCC) [E44.0] 12/01/2021 Dermatitis associated with moisture [L30.8] 12/04/2021 Encounter Status:Closed by DUANE RYAN on 01/12/23 [facility] 11-11-2022 CNPN Telephone (TXCTGL) ALEX ALMONTE ([id number]) 1945 M Date Time Provider Department 11/11/22 [...] by mouth daily with lunch. [employer] [place] with lunch aspirin, enteric coated (ASPIRIN, ENTERIC [...] in am? thanks! RF Pts RN at [facility] reports pts sister picks [...] - [place] Office Visiton 09-09-2022 Follow-up visit [id number] Zev Almontecasey 1945 M Date Provider Department Center 09/09/2022 [id number]-SARTHAK PARNELL MINDY [facility] Family History Problem Relation Age of Onset Cancer Mother Aneurysm Father Cancer Father Parkinsonism Father Family Status - Relation Status Age at Mother Father Level of Service:55137 [place] OFFICE/OUTPATIENT ESTABLISHED MOD MDM 30-39 MIN Normal [facility] Glucose Poct Glucometerson 0 07-20-2022 Commemt1 Glu2: Cleaned Meter Normal [facility] Comment on above: Result Comment: PERF ORMED BY: [facility] [address] [place] [address] PATHOLOGIST METAL CUT OFF SAW TENDER JOSE F ELLIOTT M.D. Performed By: #### G LULS #### Point of Care testing , Glucose [Mass/Vol] 176 mg/dL Normal [facility] Comment on above: Result Comment: [facility] Glucose Reference Range is dependent on time and content of last meal. Glucose of more than 200 mg/dL in a nonstressed, ambulatory subject supports the diagnosis of Diabetes Mellitus. Performed By: #### G LULS #### Point of Care testing , FK506 (TACROLIMUS) WHOLE BLO ODon 07-12-2022 Tacrolimus (FK506), Blood 10.9 ng/mL Normal 2.0-20.0 [facility] Comment on above: Result Comment: Trou gh (immediately following transplant) 15.0 . Trough (steady state, 2 weeks or more after transplant): 3.0 - 8.0 . Performed by LC-MS/MS technology. Performed By: #### F K506T ####[facility] [address] [place] [address]Dr. Farhat Leal CBC AUTO DIFFon 07-10-2022 BASO # 0.0 103/ul Normal 0.0-0.1 [facility] Comment on above: Performed By: #### C BC ####[facility] Soqxpartsr[address] [place], [place] [address]Dr. Farhat Leal Basophils/100 WBC (Bld) 0.5 % Normal 0.2-2.0 [facility] Comment on above: Performed By: #### C BC ####[facility] Ngwvupjuhu[address] [place], [place] [address]Dr. Farhat Leal EO # 0.3 103/ul Normal 0.0-0.7 [facility] Comment on above: Performed By: #### C BC ####[facility] Xpryououvn[address] [place], [place] [address]Dr. Farhat Elvis Eosinophils/100 WBC (Bld) 4.9 % Normal 0.9-7.0 [facility] Comment on above: Performed By: #### C BC ####[facility] Nyluic[address] [place], [place] [address]Dr. Farhat Leal Erythrocyte distribution width (RBC) [Ratio] 13.8 % Normal 11.0-15.0 [facility] Comment on above: Performed By: #### C BC ####[facility] Uhyccjnief7[address] [place], [place] [address]Dr. Farhat Leal Hematocrit (Bld) [Volume fraction] 36.6 % Critically low 42.0-54.0 [facility] Comment on above: Performed By: #### C BC ####[facility] Bfwhywazhh[address] [place], [place] [address]Dr. Farhat Leal Hemoglobin (Bld) [Mass/Vol] 12.2 g/dL Critically low 14.0-18.0 [facility] Comment on above: Performed By: #### C BC ####[facility] Gzmmdcvqly[address] [place], [place] [address]Dr. Madelynlorri Leal IG # 0.01 10e3/ul Normal 0.00-0.03 [facility] Comment on above: Performed By: #### C BC ####[facility] [address] [place] [id number]. Farhat Leal IG % 0.2 % Normal 0.0-0.5 [facility] Comment on above: Performed By: #### C BC ####[facility] [address] [place] [id number]. Farhat Leal LYMPH # 2.2 103/ul Normal 1.2-3.8 [facility] Comment on above: Performed By: #### C BC ####[facility] [address]ucmjit[address] [place] [id number]. Farhat Leal Lymphocytes/100 WBC (Bld) 33.9 % Normal 20.5-60.0 [facility] Comment on above: Performed By: #### C BC ####[facility] [address] [place] [address]Dr. Madelynlorri Leal MANUAL DIFF REQ NO Normal [facility] Comment on above: Performed By: #### C BC ####[facility] F[address] [place], [place] [id number]. Farhat Leal MCH (RBC) [Entitic mass] 31.0 pg Normal 25.9-34.0 [facility] Comment on above: Performed By: #### C BC ####[facility] [address]jt[address] [place] [id number]. Farhat Leal MCHC (RBC) [Mass/Vol] 33.3 g/dL Normal 29.9-35.2 [facility] Comment on above: Performed By: #### C BC ####[facility] [address]fs[address] [place], [place] [address]Dr. Farhat Leal MCV (RBC) [Entitic vol] 93.1 fL Normal 80.0-94.0 [facility] Comment on above: Performed By: #### C BC ####[facility] [address] [place] [id number]. Farhat Elvis MONO # 0.7 103/ul Normal 0.3-0.8 [facility] Comment on above: Performed By: #### C BC ####[facility] [address] [place] [id number]. Farhat Leal Monocytes/100 WBC (Bld) 10.8 % Normal 1.7-12.0 [facility] Comment on above: Performed By: #### C BC ####[facility] [address] [place] [id number]. Farhat Leal NEUT # 3.2 103/ul Normal 1.4-6.5 [facility] Comment on above: Performed By: #### C BC ####[facility] T[address] [place] [id number]. Farhat Leal Neutrophils/100 WBC (Bld) 49.7 % Normal 43.0-75.0 [facility] Comment on above: Performed By: #### C BC ####[facility] [address] [place] [id number]. Farhat Leal Platelet mean volume (Bld) [Entitic vol] 10.9 fL Normal 9.5-13.5 [facility] Comment on above: Performed By: #### C BC ####[facility] [address] [place] [id number]. Farhat Leal PLT 195 103/ul Normal 150-450 [facility] Comment on above: Performed By: #### C BC ####[facility] [address] [place] [id number]. Farhat Leal RBC 3.93 106/ul Critically low 4.70-6.10 [facility] Comment on above: Performed By: #### C BC ####[facility] X[address] [place] [id number]. Farhat Leal WBC 6.4 103/ul Normal 4.0-11.0 [facility] Comment on above: Performed By: #### C BC ####[facility] [address] [place] [address]Dr. Farhat Leal MAGNESIUMon 07-10-2022 Magnesium [Mass/Vol] 1.9 mg/dL Normal 1.8-2.4 [facility] Comment on above: Performed By: #### M G, PHOS ####[facility] [address] [place] [address]Dr. Farhat Leal PHOSPHORUSon 07-10-2022 Phosphate [Mass/Vol] 4.7 mg/dL Normal 2.6-4.7 [facility] Comment on above: Performed By: #### M Anais PHOS ####[facility] [address] [place] [address]Dr. Farhat Leal PROF 14(COMP METB)on 023 Albumin [Mass/Vol] 2.7 g/dL Critically low 3.4-5.0 [facility] Comment on above: Performed By: #### C MP ####[facility] Idkxazpvgr[address] [place], [place] [address]Dr. Farhat Leal Albumin/Globulin [Mass ratio] 0.8 {ratio} Normal [facility] Comment on above: Performed By: #### C MP ####[facility] Lqltdnuuue[address] [place], [place] [address]Dr. Farhat Leal ALP [Catalytic activity/Vol] 59 U/L Normal 46-116 [facility] Comment on above: Performed By: #### C MP ####[facility] Veaozzzngg[address] [place], [place] [address]Dr. Farhat Leal ALT [Catalytic activity/Vol] 16 U/L Normal 16-63 [facility] Comment on above: Performed By: #### C MP ####[facility] [address] [place] [address]Dr. Farhat Leal Anion gap [Moles/Vol] 12.3 mmol/L Normal [facility] Comment on above: Performed By: #### C MP ####[facility] [address] [place] [address]Dr. Farhat Leal AST [Catalytic activity/Vol] 17 U/L Normal 15-37 [facility] Comment on above: Performed By: #### C MP ####[facility] [address]inev[address] [place] [address]Dr. Farhat Leal Bilirubin [Mass/Vol] 0.5 mg/dL Normal 0.2-1.0 [facility] Comment on above: Performed By: #### C MP ####[facility] K[address] [place] [id number]. Farhat Leal Calcium [Mass/Vol] 8.5 mg/dL Normal 8.5-10.1 [facility] Comment on above: Performed By: #### C MP ####[facility] [address]ax[address] [place] [id number]. Farhat Leal Chloride [Moles/Vol] 104 mmol/L Normal 98-107 [facility] Comment on above: Performed By: #### C MP ####[facility] [address]wtz[address] [place] [id number]. Farhat Leal CO2 [Moles/Vol] 27.6 mmol/L Normal 21.0-32.0 [facility] Comment on above: Performed By: #### C MP ####[facility] Ilubnruayn[address] [place], [place] [address]Dr. Farhat Elvis Creatinine [Mass/Vol] 1.79 mg/dL Critically high 0.70-1.30 [facility] Comment on above: Performed By: #### C MP ####[facility] [address]hxaprxc[address] [place], [place] [address]Dr. Farhat Elvis EGFR-AF ICELANDIC 45 mL/min/1.73m2 Critically low >=60 [facility] Comment on above: Performed By: #### C MP ####[facility] [address] [place] [address]Dr. Madelynlorri Elvis EGFR-NON AF ICELANDIC 37 mL/min/1.73m2 Critically low >=60 [facility] Comment on above: Performed By: #### C MP ####[facility] [address]essifdrw[address] [place], [place] [address]Dr. Madelynlorri Elvis Globulin (S) [Mass/Vol] 3.2 g/dL Normal [facility] Comment on above: Performed By: #### C MP ####[facility] Av[address]necxtk[address] [place] [id number]. Farhat Leal Glucose [Mass/Vol] 203 mg/dL Critically high 74-106 [facility] Comment on above: Performed By: #### C MP ####[facility] [address]ja[address] [place] [address]Dr. Farhat Leal Potassium [Moles/Vol] 3.9 mmol/L Normal 3.5-5.1 [facility] Comment on above: Performed By: #### C MP ####[facility] [address]xl[address] [place] [address]Dr. Farhat Leal Protein [Mass/Vol] 5.9 g/dL Critically low 6.4-8.2 [facility] Comment on above: Performed By: #### C MP ####[facility] Dukzg[address]psz[address] [place], [place] [address]Dr. Farhat Elvis Sodium [Moles/Vol] 140 mmol/L Normal 136-145 [facility] Comment on above: Performed By: #### C MP ####[facility] Hcjsaexxcb[address] [place], [place] [address]Dr. Madelynlorri Leal Urea nitrogen [Mass/Vol] 61.0 mg/dL Critically high 7.0-18.0 [facility] Comment on above: Performed By: #### C MP ####[facility] Kcxrhehrnb[address] [place], [place] [address]Dr. Farhat Elvis Urea nitrogen/Creatinine [Mass ratio] 34.1 mg/mg Normal [facility] Comment on above: Performed By: #### C MP ####[facility] Ekpgiwrsmy[address] [place], [place] [address]Dr. Farhat Leal PROTIMEon 07-10-2022 INR Coag (PPP) [Relative time] 2.95 {INR} Normal [facility] Comment on above: Performed By: #### P T ####[facility] Agbqifxpym19[address] [place], [place] [address]Dr. Farhat Leal INR GUIDELINES SEE BELOW Normal [facility] Comment on above: Result Comment: MALINA RED INR: 2.0 - 3.0 CONDITIONS NOT LISTED BELOW 2.5 - 3.5 FOR PROSTHETIC HEART VALVE REPLACEMENT 2.5 - 3.5 RECURRENT THROMBOSIS Performed By: #### P T ####[facility] [address] [place] [address]Dr. Madelynlorri Leal PT Coag (PPP) [Time] 29.4 s Critically high 9.0-11.6 [facility] Comment on above: Performed By: #### P T ####[facility] Dhcmybmcuc[address] [place], [place] [address]Dr. Farhat Elvis FK506 (TACROLIMUS) WHOLE BLO ODon 07-07-2022 Tacrolimus (FK506), Blood 8.3 ng/mL Normal 2.0-20.0 [facility] Comment on above: Result Comment: Trou gh (immediately following transplant) 15.0 . Trough (steady state, 2 weeks or more after transplant): 3.0 - 8.0 . Performed by LC-MS/MS technology. Performed By: #### F K506T ####[facility] Wygbsyoief[address] [place], [place] [address]Dr. Madelynlorri Leal CBC AUTO DIFFon 07-03-2022 BASO # 0.0 103/ul Normal 0.0-0.1 [facility] Comment on above: Performed By: #### C BC ####[facility] G[address]qjsbgfj[address] [place], [place] [address]Dr. Farhat Leal Basophils/100 WBC (Bld) 0.6 % Normal 0.2-2.0 [facility] Comment on above: Performed By: #### C BC ####[facility] Ejrpbbegji[address] [place], [place] [address]Dr. Farhat Leal EO # 0.3 103/ul Normal 0.0-0.7 [facility] Comment on above: Performed By: #### C BC ####[facility] Bztsqdfsaa[address] [place], [place] [address]Dr. Farhat Leal Eosinophils/100 WBC (Bld) 4.1 % Normal 0.9-7.0 [facility] Comment on above: Performed By: #### C BC ####[facility] Rkqyfwqqiu[address] [place], [place] [address]Dr. Farhat Leal Erythrocyte distribution width (RBC) [Ratio] 14.0 % Normal 11.0-15.0 [facility] Comment on above: Performed By: #### C BC ####[facility] [address] [place] [address]Dr. Farhat Leal Hematocrit (Bld) [Volume fraction] 35.9 % Critically low 42.0-54.0 [facility] Comment on above: Performed By: #### C BC ####[facility] [address]rtnvj[address] [place] [address]Dr. Farhat Leal Hemoglobin (Bld) [Mass/Vol] 12.0 g/dL Critically low 14.0-18.0 [facility] Comment on above: Performed By: #### C BC ####[facility] [address]hnzq[address] [place], [place] [address]Dr. Farhat Leal IG # 0.04 10e3/ul Critically high 0.00-0.03 [facility] Comment on above: Performed By: #### C BC ####[facility] Ghxauqealb[address] [place], [place] [address]Dr. Madelynlorri Leal IG % 0.6 % Critically high 0.0-0.5 [facility] Comment on above: Performed By: #### C BC ####[facility] Xohqxslcit[address] [place], [place] [address]Dr. Farhat Elvis LYMPH # 1.5 103/ul Normal 1.2-3.8 [facility] Comment on above: Performed By: #### C BC ####[facility] Tjxyqcbrdv63[address] [place], [place] [address]Dr. Madelynlorri Leal Lymphocytes/100 WBC (Bld) 21.5 % Normal 20.5-60.0 [facility] Comment on above: Performed By: #### C BC ####[facility] Njkxilskok[address] [place], [place] [address]Dr. Madelynlorri Leal MANUAL DIFF REQ NO Normal [facility] Comment on above: Performed By: #### C BC ####[facility] Ktkgtkbhac[address] [place], [place] [address]Dr. Farhat Leal MCH (RBC) [Entitic mass] 30.8 pg Normal 25.9-34.0 [facility] Comment on above: Performed By: #### C BC ####[facility] Y[address] [place] [id number]. Madelynlorri Leal MCHC (RBC) [Mass/Vol] 33.4 g/dL Normal 29.9-35.2 [facility] Comment on above: Performed By: #### C BC ####[facility] Y[address]zehhrlz[address] [place] [id number]. Farhat Leal MCV (RBC) [Entitic vol] 92.1 fL Normal 80.0-94.0 [facility] Comment on above: Performed By: #### C BC ####[facility] Pwwebjgypn[address] [place], [place] [address]Dr. Farhat Leal MONO # 0.6 103/ul Normal 0.3-0.8 [facility] Comment on above: Performed By: #### C BC ####[facility] Idnvrtgabn[address] [place], [place] [address]Dr. Farhat Leal Monocytes/100 WBC (Bld) 8.7 % Normal 1.7-12.0 [facility] Comment on above: Performed By: #### C BC ####[facility] Slfuoyrdjj[address] [place], [place] [address]Dr. Farhat Leal NEUT # 4.4 103/ul Normal 1.4-6.5 [facility] Comment on above: Performed By: #### C BC ####[facility] Sxkpzoilpn[address] [place], [place] [address]Dr. Farhat Leal Neutrophils/100 WBC (Bld) 64.5 % Normal 43.0-75.0 [facility] Comment on above: Performed By: #### C BC ####[facility] Tbixnplcfa[address] [place], [place] [address]Dr. Farhat Leal Platelet mean volume (Bld) [Entitic vol] 10.1 fL Normal 9.5-13.5 [facility] Comment on above: Performed By: #### C BC ####[facility] Urizsldvip[address] [place], [place] [address]Dr. Farhat Leal PLT 177 103/ul Normal 150-450 [facility] Comment on above: Performed By: #### C BC ####[facility] Kerhevesrl[address] [place] [id number]. Madelynlorri Elvis RBC 3.90 106/ul Critically low 4.70-6.10 [facility] Comment on above: Performed By: #### C BC ####[facility] A[address]jlkmmys[address] [place] [id number]. Farhat Leal WBC 6.8 103/ul Normal 4.0-11.0 [facility] Comment on above: Performed By: #### C BC ####[facility] Tvfhbrgzjz[address] [place] [address]Dr. Farhat Leal PROF 14(COMP METB)on 023 Albumin [Mass/Vol] 2.8 g/dL Critically low 3.4-5.0 [facility] Comment on above: Performed By: #### C MP ####[facility] Bmkxwwkrya[address] [place], [place] [address]Dr. Farhat Leal Albumin/Globulin [Mass ratio] 0.8 {ratio} Normal [facility] Comment on above: Performed By: #### C MP ####[facility] Bbkmlnrahq[address] [place], [place] [address]Dr. Madelynlorri Leal ALP [Catalytic activity/Vol] 68 U/L Normal 46-116 [facility] Comment on above: Performed By: #### C MP ####[facility] [address]ykd[address] [place] [address]Dr. Farhat Leal ALT [Catalytic activity/Vol] 20 U/L Normal 16-63 [facility] Comment on above: Performed By: #### C MP ####[facility] Unkzhudbju[address] [place] [address]Dr. Farhat Leal Anion gap [Moles/Vol] 11.1 mmol/L Normal [facility] Comment on above: Performed By: #### C MP ####[facility] Xmvsabjjtk[address] [place] [address]Dr. Farhat Leal AST [Catalytic activity/Vol] 22 U/L Normal 15-37 [facility] Comment on above: Performed By: #### C MP ####[facility] Ymf[address]tgpeze[address] [place] [id number]. Farhat Leal Bilirubin [Mass/Vol] 0.4 mg/dL Normal 0.2-1.0 [facility] Comment on above: Performed By: #### C MP ####[facility] Yiegemyura[address] [place] [id number]. Farhat Leal Calcium [Mass/Vol] 8.5 mg/dL Normal 8.5-10.1 [facility] Comment on above: Performed By: #### C MP ####[facility] [address]gmenr[address] [place] [address]Dr. Farhat eLal Chloride [Moles/Vol] 106 mmol/L Normal 98-107 [facility] Comment on above: Performed By: #### C MP ####[facility] Wvpnpgrgse[address] [place], [place] [address]Dr. Farhat Leal CO2 [Moles/Vol] 29.1 mmol/L Normal 21.0-32.0 [facility] Comment on above: Performed By: #### C MP ####[facility] Jjzmhwnyeo[address] [place], [place] [address]Dr. Farhat Leal Creatinine [Mass/Vol] 1.70 mg/dL Critically high 0.70-1.30 [facility] Comment on above: Performed By: #### C MP ####[facility] [address]radpjwogl[address] [place], [place] [address]Dr. Farhat Leal EGFR-AF ICELANDIC 48 mL/min/1.73m2 Critically low >=60 [facility] Comment on above: Performed By: #### C MP ####[facility] Wpcjisobfs394[address] [place], [place] [address]Dr. Farhat Leal EGFR-NON AF ICELANDIC 39 mL/min/1.73m2 Critically low >=60 [facility] Comment on above: Performed By: #### C MP ####[facility] Pktdbsvoao01[address] [place], [place] [address]Dr. Farhat Leal Globulin (S) [Mass/Vol] 3.6 g/dL Normal [facility] Comment on above: Performed By: #### C MP ####[facility] [address]jcedo[address] [place] [address]Dr. Farhat Leal Glucose [Mass/Vol] 312 mg/dL Critically high 74-106 [facility] Comment on above: Performed By: #### C MP ####[facility] Crnzhdlldv[address] [place] [address]Dr. Farhat Leal Potassium [Moles/Vol] 4.2 mmol/L Normal 3.5-5.1 [facility] Comment on above: Performed By: #### C MP ####[facility] Qfqtfsrogj280[address] [place] [address]Dr. Farhat Leal Protein [Mass/Vol] 6.4 g/dL Normal 6.4-8.2 [facility] Comment on above: Performed By: #### C MP ####[facility] Joqhpzzxuo85[address] [place], [place] [address]Dr. Farhat Leal Sodium [Moles/Vol] 142 mmol/L Normal 136-145 [facility] Comment on above: Performed By: #### C MP ####[facility] Vscilucgyn140[address] [place], [place] [address]Dr. Farhat Leal Urea nitrogen [Mass/Vol] 49.0 mg/dL Critically high 7.0-18.0 [facility] Comment on above: Performed By: #### C MP ####[facility] Djugrdoycs74[address] [place], [place] [address]Dr. Madelynlorri Elvis Urea nitrogen/Creatinine [Mass ratio] 28.8 mg/mg Normal [facility] Comment on above: Performed By: #### C MP ####[facility] Sveiwjxvld160[address] [place], [place] [address]Dr. Farhat Leal PROTIMEon 07-03-2022 INR Coag (PPP) [Relative time] 2.23 {INR} Normal [facility] Comment on above: Performed By: #### P T ####[facility] Iwmsexqnrz459[address] [place], [place] [address]Dr. Farhat Leal INR GUIDELINES SEE BELOW Normal [facility] Comment on above: Result Comment: MALINA RED INR: 2.0 - 3.0 CONDITIONS NOT LISTED BELOW 2.5 - 3.5 FOR PROSTHETIC HEART VALVE REPLACEMENT 2.5 - 3.5 RECURRENT THROMBOSIS Performed By: #### P T ####[facility] Fqedzfnxba4[address] [place] [address]DrSkylar Farhat Leal PT Coag (PPP) [Time] 22.6 s Critically high 9.0-11.6 [facility] Comment on above: Performed By: #### P T ####[facility] Ghnewwfsiy1116[address] [place], [place] [address]DrSkylar Leal FK506 (TACROLIMUS) WHOLE BLO ODon 06-29-2022 Tacrolimus (FK506), Blood 12.2 ng/mL Normal 2.0-20.0 [facility] Comment on above: Result Comment: Trou gh (immediately following transplant) 15.0 . Trough (steady state, 2 weeks or more after transplant): 3.0 - 8.0 . Performed by LC-MS/MS technology. Performed By: #### F [id number] ####[facility] Tzfceiovrg02[address] [place], [place] [address]Dr. Farhat Elvis CBC AUTO DIFFon 06-26-2022 BASO # 0.0 103/ul Normal 0.0-0.1 [facility] Comment on above: Performed By: #### C BC ####[facility] Vbznifkqtp8209[address] [place], [place] [address]Dr. Farhat Leal Basophils/100 WBC (Bld) 0.5 % Normal 0.2-2.0 [facility] Comment on above: Performed By: #### C BC ####[facility] Sizsqyvxab1832[address] [place], [place] [address]Dr. Farhat Leal EO # 0.3 103/ul Normal 0.0-0.7 [facility] Comment on above: Performed By: #### C BC ####[facility] Zeqcmneuws326[address] [place], [place] [address]Dr. Farhat Leal Eosinophils/100 WBC (Bld) 4.3 % Normal 0.9-7.0 [facility] Comment on above: Performed By: #### C BC ####[facility] Eqfjolnazq217[address] [place], [place] [address]Dr. Farhat Leal Erythrocyte distribution width (RBC) [Ratio] 14.1 % Normal 11.0-15.0 [facility] Comment on above: Performed By: #### C BC ####[facility] Kqammqfxnl1377[address] [place], [place] [address]Dr. Farhat Leal Hematocrit (Bld) [Volume fraction] 35.4 % Critically low 42.0-54.0 [facility] Comment on above: Performed By: #### C BC ####[facility] Murbvuzerv779[address] [place], [place] [address]Dr. Madelynlorri Leal Hemoglobin (Bld) [Mass/Vol] 11.8 g/dL Critically low 14.0-18.0 [facility] Comment on above: Performed By: #### C BC ####[facility] Bulrxpfwmi769[address] [place], [place] [address]Dr. Farhat Leal IG # 0.02 10e3/ul Normal 0.00-0.03 [facility] Comment on above: Performed By: #### C BC ####[facility] Qfovxzqwtn423[address] [place], [place] [address]Dr. Madelynlorri Leal IG % 0.3 % Normal 0.0-0.5 [facility] Comment on above: Performed By: #### C BC ####[facility] Gwhplpoxdm5905[address] [place], [place] [address]Dr. Farhat Leal LYMPH # 2.4 103/ul Normal 1.2-3.8 [facility] Comment on above: Performed By: #### C BC ####[facility] Xtuvlxlvxz3022[address] [place], [place] [address]Dr. Farhat Leal Lymphocytes/100 WBC (Bld) 40.4 % Normal 20.5-60.0 [facility] Comment on above: Performed By: #### C BC ####[facility] Ayawjayrnz8[address] [place], [place] [address]Dr. Farhat Leal MANUAL DIFF REQ NO Normal [facility] Comment on above: Performed By: #### C BC ####[facility] Iwigqumbpi6785[address] [place], [place] [address]Dr. Farhat Leal MCH (RBC) [Entitic mass] 31.0 pg Normal 25.9-34.0 [facility] Comment on above: Performed By: #### C BC ####[facility] Chfwnmpmcm[address] [place] [address]Dr. Farhat Leal MCHC (RBC) [Mass/Vol] 33.3 g/dL Normal 29.9-35.2 [facility] Comment on above: Performed By: #### C BC ####[facility] Jaxrqobhnl[address] [place] [address]Dr. Farhat Elvis MCV (RBC) [Entitic vol] 92.9 fL Normal 80.0-94.0 [facility] Comment on above: Performed By: #### C BC ####[facility] Stgoxfagtt[address] [place] [address]Dr. Farhat Elvis MONO # 0.7 103/ul Normal 0.3-0.8 [facility] Comment on above: Performed By: #### C BC ####[facility] Yuecptpcxn[address] [place], [place] [address]Dr. Madelynlorri Leal Monocytes/100 WBC (Bld) 11.1 % Normal 1.7-12.0 [facility] Comment on above: Performed By: #### C BC ####[facility] Kqlduyumnd2059[address] [place], [place] [address]Dr. Farhat Leal NEUT # 2.6 103/ul Normal 1.4-6.5 [facility] Comment on above: Performed By: #### C BC ####[facility] Ndotgnqhux6877[address] [place], [place] [address]Dr. Madelynlorri Leal Neutrophils/100 WBC (Bld) 43.4 % Normal 43.0-75.0 [facility] Comment on above: Performed By: #### C BC ####[facility] Clamiflexf1475[address] [place], [place] [address]Dr. Madelynlorri Leal Platelet mean volume (Bld) [Entitic vol] 10.4 fL Normal 9.5-13.5 [facility] Comment on above: Performed By: #### C BC ####[facility] [address]qbdhmz[address] [place] [id number]. Madelynlorri Elvis PLT 211 103/ul Normal 150-450 [facility] Comment on above: Performed By: #### C BC ####[facility] Bqbpnqfeaq[address] [place] [address]Dr. Farhat Leal RBC 3.81 106/ul Critically low 4.70-6.10 [facility] Comment on above: Performed By: #### C BC ####[facility] Nirpmkpdty17[address] [place] [address]Dr. Madelynlorri Elvis WBC 6.0 103/ul Normal 4.0-11.0 [facility] Comment on above: Performed By: #### C BC ####[facility] Nwdurnvyhp68[address] [place] [address]Dr. Farhat Leal PROF 14(COMP METB)on 023 Albumin [Mass/Vol] 2.6 g/dL Critically low 3.4-5.0 [facility] Comment on above: Performed By: #### C MP ####[facility] Vpmhocivtj764[address] [place], [place] [address]Dr. Farhat Leal Albumin/Globulin [Mass ratio] 0.8 {ratio} Normal [facility] Comment on above: Performed By: #### C MP ####[facility] Eqtlfsejen9901[address] [place], [place] [address]Dr. Farhat Leal ALP [Catalytic activity/Vol] 64 U/L Normal 46-116 [facility] Comment on above: Performed By: #### C MP ####[facility] Uvripvmpmn044[address] [place], [place] [address]Dr. Farhat Leal ALT [Catalytic activity/Vol] 18 U/L Normal 16-63 [facility] Comment on above: Performed By: #### C MP ####[facility] Lhjdxqfvhd1322[address] [place], [place] [address]Dr. Farhat Leal Anion gap [Moles/Vol] 10.2 mmol/L Normal [facility] Comment on above: Performed By: #### C MP ####[facility] Pplkjfsein[address] [place], [place] [address]Dr. Farhat Leal AST [Catalytic activity/Vol] 16 U/L Normal 15-37 [facility] Comment on above: Performed By: #### C MP ####[facility] Untqbyngfa[address] [place] [address]Dr. Farhat Leal Bilirubin [Mass/Vol] 0.6 mg/dL Normal 0.2-1.0 [facility] Comment on above: Performed By: #### C MP ####[facility] Pouymncghq720[address] [place], [place] [address]Dr. Farhat Leal Calcium [Mass/Vol] 8.5 mg/dL Normal 8.5-10.1 [facility] Comment on above: Performed By: #### C MP ####[facility] Sncqvqibgj224[address] [place], [place] [address]Dr. Farhat Leal Chloride [Moles/Vol] 106 mmol/L Normal 98-107 [facility] Comment on above: Performed By: #### C MP ####[facility] Xnpzddmahf2140[address] [place], [place] [address]Dr. Farhat Leal CO2 [Moles/Vol] 29.8 mmol/L Normal 21.0-32.0 [facility] Comment on above: Performed By: #### C MP ####[facility] Xzwfwnjwhv360[address] [place], [place] [address]Dr. Farhat Leal Creatinine [Mass/Vol] 1.60 mg/dL Critically high 0.70-1.30 [facility] Comment on above: Performed By: #### C MP ####[facility] Bxpyvahmjo8724[address] [place], [place] [address]Dr. Farhat Leal EGFR-AF ICELANDIC 51 mL/min/1.73m2 Critically low >=60 [facility] Comment on above: Performed By: #### C MP ####[facility] Llrcachbua398[address] [place], [place] [address]Dr. Farhat Leal EGFR-NON AF ICELANDIC 42 mL/min/1.73m2 Critically low >=60 [facility] Comment on above: Performed By: #### C MP ####[facility] Ffxokzbupi[address] [place] [address]Dr. Farhat Leal Globulin (S) [Mass/Vol] 3.4 g/dL Normal [facility] Comment on above: Performed By: #### C MP ####[facility] Wqovazekbg617[address] [place], [place] [address]Dr. Farhat Leal Glucose [Mass/Vol] 178 mg/dL Critically high 74-106 [facility] Comment on above: Performed By: #### C MP ####[facility] Oorargnkuu8397[address] [place], [place] [address]Dr. Farhat Leal Potassium [Moles/Vol] 4.0 mmol/L Normal 3.5-5.1 [facility] Comment on above: Performed By: #### C MP ####[facility] Jekmnyfwyb9517[address] [place], [place] [address]Dr. Farhat Leal Protein [Mass/Vol] 6.0 g/dL Critically low 6.4-8.2 [facility] Comment on above: Performed By: #### C MP ####[facility] Aefvjqymhn5514[address] [place], [place] [address]Dr. Farhat Leal Sodium [Moles/Vol] 142 mmol/L Normal 136-145 [facility] Comment on above: Performed By: #### C MP ####[facility] Zwpibkgwji1344[address] [place], [place] [address]Dr. Farhat Leal Urea nitrogen [Mass/Vol] 49.0 mg/dL Critically high 7.0-18.0 [facility] Comment on above: Performed By: #### C MP ####[facility] Yccgusqsda0605[address] [place], [place] [address]Dr. Farhat Leal Urea nitrogen/Creatinine [Mass ratio] 30.6 mg/mg Normal [facility] Comment on above: Performed By: #### C MP ####[facility] Qjtwwkohyg5769[address] [place], [place] [address]Dr. Farhat Leal PROTIMEon 06-26-2022 INR Coag (PPP) [Relative time] 1.77 {INR} Normal [facility] Comment on above: Performed By: #### P T ####[facility] Wwdptnmsrk[address] [place] [address]DrSkylar Leal INR GUIDELINES SEE BELOW Normal [facility] Comment on above: Result Comment: MALINA RED INR: 2.0 - 3.0 CONDITIONS NOT LISTED BELOW 2.5 - 3.5 FOR PROSTHETIC HEART VALVE REPLACEMENT 2.5 - 3.5 RECURRENT THROMBOSIS Performed By: #### P T ####[facility] Jneikkicub601[address] [place], [place] [address]Dr. Farhat Leal PT Coag (PPP) [Time] 18.2 s Critically high 9.0-11.6 [facility] Comment on above: Performed By: #### P T ####[facility] Nuwhsdlpbs3024[address] [place], [place] [address]DrSkylar Leal FK506 (TACROLIMUS) WHOLE BLO ODon 06-22-2022 Tacrolimus (FK506), Blood 24.5 ng/mL Invalid Interpretation Code 2.0-20.0 [facility] Comment on above: Result Comment: Trou gh (immediately following transplant) 15.0 . Trough (steady state, 2 weeks or more after transplant): 3.0 - 8.0 . Performed by LC-MS/MS technology.Patient drug level exceeds published reference range. Evaluateclinically for signs of potential toxicity. Performed By: #### F [id number] ####[facility] Xxwnunqjpe195[address] [place], [place] [address]Dr. Farhat Leal CBC AUTO DIFFon 06-19-2022 BASO # 0.1 103/ul Normal 0.0-0.1 [facility] Comment on above: Performed By: #### C BC ####[facility] Cvglvlgsvc455[address] [place], [place] [address]Dr. Farhat Leal Basophils/100 WBC (Bld) 0.7 % Normal 0.2-2.0 [facility] Comment on above: Performed By: #### C BC ####[facility] Rzkehnlnxo740[address] [place], [place] [address]DrSkylar Leal EO # 0.4 103/ul Normal 0.0-0.7 [facility] Comment on above: Performed By: #### C BC ####[facility] Nsylglphze0[address] [place] [address]Dr. Farhat Leal Eosinophils/100 WBC (Bld) 5.7 % Normal 0.9-7.0 [facility] Comment on above: Performed By: #### C BC ####[facility] Hhufipiklj5137 [place] [address]Dr. Farhat Leal Erythrocyte distribution width (RBC) [Ratio] 14.5 % Normal 11.0-15.0 [facility] Comment on above: Performed By: #### C BC ####[facility] Pdwouassjn5825[address] [place], [place] [address]Dr. Farhat Leal Hematocrit (Bld) [Volume fraction] 34.1 % Critically low 42.0-54.0 [facility] Comment on above: Performed By: #### C BC ####[facility] Csburmqaqd238[address] [place], [place] [address]Dr. Farhat Leal Hemoglobin (Bld) [Mass/Vol] 11.3 g/dL Critically low 14.0-18.0 [facility] Comment on above: Performed By: #### C BC ####[facility] Futqwvlvij95[address] [place], [place] [address]Dr. Farhat Leal IG # 0.02 10e3/ul Normal 0.00-0.03 [facility] Comment on above: Performed By: #### C BC ####[facility] Oxygmsrvqy263[address] [place], [place] [address]Dr. Farhat Leal IG % 0.3 % Normal 0.0-0.5 [facility] Comment on above: Performed By: #### C BC ####[facility] Pbruqengeu4020[address] [place], [place] [address]Dr. Farhat Leal LYMPH # 3.1 103/ul Normal 1.2-3.8 [facility] Comment on above: Performed By: #### C BC ####[facility] Qtctcxfpgd2470[address] [place], [place] [address]Dr. Farhat Leal Lymphocytes/100 WBC (Bld) 40.6 % Normal 20.5-60.0 [facility] Comment on above: Performed By: #### C BC ####[facility] Ifhxezpffh[address] [place] [id number]. Farhat Leal MANUAL DIFF REQ NO Normal [facility] Comment on above: Performed By: #### C BC ####[facility] Fcxgxeeviv3199 [place] [id number]. Farhat Leal MCH (RBC) [Entitic mass] 30.6 pg Normal 25.9-34.0 [facility] Comment on above: Performed By: #### C BC ####[facility] Zmsiuzalli59[address] [place] [address]Dr. Farhat Leal MCHC (RBC) [Mass/Vol] 33.1 g/dL Normal 29.9-35.2 [facility] Comment on above: Performed By: #### C BC ####[facility] Ltdhwfedfa1836 [place] [address]Dr. Farhat Leal MCV (RBC) [Entitic vol] 92.4 fL Normal 80.0-94.0 [facility] Comment on above: Performed By: #### C BC ####[facility] Vknjzjlvgp[address] [place], [place] [address]Dr. Farhat Elvis MONO # 0.8 103/ul Normal 0.3-0.8 [facility] Comment on above: Performed By: #### C BC ####[facility] Dgllgcdcot60[address] [place], [place] [address]Dr. Farhat Elvis Monocytes/100 WBC (Bld) 10.6 % Normal 1.7-12.0 [facility] Comment on above: Performed By: #### C BC ####[facility] Orsiacmayf746[address] [place], [place] [address]Dr. Farhat Leal NEUT # 3.2 103/ul Normal 1.4-6.5 [facility] Comment on above: Performed By: #### C BC ####[facility] Isshwpozwr830[address] [place], [place] [address]Dr. Madelynlorri Leal Neutrophils/100 WBC (Bld) 42.1 % Critically low 43.0-75.0 [facility] Comment on above: Performed By: #### C BC ####[facility] Xuzcbwbfax39[address] [place] [id number]. Farhat Leal Platelet mean volume (Bld) [Entitic vol] 10.6 fL Normal 9.5-13.5 [facility] Comment on above: Performed By: #### C BC ####[facility] Ydbfjmihep1141 [place] [id number]. Farhat Leal PLT 187 103/ul Normal 150-450 [facility] Comment on above: Performed By: #### C BC ####[facility] Aovgzfqzji[address] [place] [address]Dr. Farhat Leal RBC 3.69 106/ul Critically low 4.70-6.10 [facility] Comment on above: Performed By: #### C BC ####[facility] Bdezipnswn44[address] [place] [address]Dr. Farhat Leal WBC 7.7 103/ul Normal 4.0-11.0 [facility] Comment on above: Performed By: #### C BC ####[facility] Jmqgqvnvbx38[address] [place] [address]Dr. Farhat Leal PROF 14(COMP METB)on 023 Albumin [Mass/Vol] 2.5 g/dL Critically low 3.4-5.0 [facility] Comment on above: Performed By: #### C MP ####[facility] Myepripdle[address] [place] [address]Dr. Farhat Leal Albumin/Globulin [Mass ratio] 0.8 {ratio} Normal [facility] Comment on above: Performed By: #### C MP ####[facility] Mhryufekyk4[address] [place] [address]Dr. Farhat Leal ALP [Catalytic activity/Vol] 60 U/L Normal 46-116 [facility] Comment on above: Performed By: #### C MP ####[facility] Kiuzhnityk[address] [place] [address]Dr. Farhat Leal ALT [Catalytic activity/Vol] 16 U/L Normal 16-63 [facility] Comment on above: Performed By: #### C MP ####[facility] Acjbxpkiai70[address] [place] [address]Dr. Farhat Leal Anion gap [Moles/Vol] 9.1 mmol/L Normal [facility] Comment on above: Performed By: #### C MP ####[facility] Wsmbazxjhf467[address] [place], [place] [address]Dr. Farhat Leal AST [Catalytic activity/Vol] 31 U/L Normal 15-37 [facility] Comment on above: Performed By: #### C MP ####[facility] Vekaskhvno30[address] [place], [place] [address]Dr. Farhat Leal Bilirubin [Mass/Vol] 0.3 mg/dL Normal 0.2-1.0 [facility] Comment on above: Performed By: #### C MP ####[facility] Ggpxmsccxj2729[address] [place], [place] [address]Dr. Farhat Leal Calcium [Mass/Vol] 8.2 mg/dL Critically low 8.5-10.1 [facility] Comment on above: Performed By: #### C MP ####[facility] Fpmeccmoyq5[address] [place], [place] [address]Dr. Farhat Leal Chloride [Moles/Vol] 106 mmol/L Normal 98-107 [facility] Comment on above: Performed By: #### C MP ####[facility] Yztanuufsj160[address] [place], [place] [address]Dr. Farhat Leal CO2 [Moles/Vol] 27.0 mmol/L Normal 21.0-32.0 [facility] Comment on above: Performed By: #### C MP ####[facility] Wyiitfmzyt24[address] [place], [place] [address]Dr. Farhat Elvis Creatinine [Mass/Vol] 1.51 mg/dL Critically high 0.70-1.30 [facility] Comment on above: Performed By: #### C MP ####[facility] Gjephratte06[address] [place], [place] [address]Dr. Farhat Elvis EGFR-AF ICELANDIC 55 mL/min/1.73m2 Critically low >=60 [facility] Comment on above: Performed By: #### C MP ####[facility] Fpzduxlvql[address] [place] [address]Dr. Farhat Leal EGFR-NON AF ICELANDIC 45 mL/min/1.73m2 Critically low >=60 [facility] Comment on above: Performed By: #### C MP ####[facility] Qjpeuakzxd[address] [place] [address]Dr. Farhat Leal Globulin (S) [Mass/Vol] 3.2 g/dL Normal [facility] Comment on above: Performed By: #### C MP ####[facility] Ebqgylcduo[address] [place] [address]Dr. Farhat Leal Glucose [Mass/Vol] 165 mg/dL Critically high 74-106 [facility] Comment on above: Performed By: #### C MP ####[facility] Tumchsqpvs[address] [place] [address]Dr. Farhat Leal Potassium [Moles/Vol] 4.1 mmol/L Normal 3.5-5.1 [facility] Comment on above: Performed By: #### C MP ####[facility] Ltvkssxuzj403[address] [place], [place] [address]Dr. Farhat Leal Protein [Mass/Vol] 5.7 g/dL Critically low 6.4-8.2 [facility] Comment on above: Performed By: #### C MP ####[facility] Dnkcrqfrks[address] [place], [place] [address]Dr. Farhat Leal Sodium [Moles/Vol] 138 mmol/L Normal 136-145 [facility] Comment on above: Performed By: #### C MP ####[facility] Izeitexnnb17[address] [place] [address]Dr. Farhat Leal Urea nitrogen [Mass/Vol] 51.0 mg/dL Critically high 7.0-18.0 [facility] Comment on above: Performed By: #### C MP ####[facility] Erjciyqwxz9[address] [place], [place] [address]Dr. Farhat Leal Urea nitrogen/Creatinine [Mass ratio] 33.8 mg/mg Normal [facility] Comment on above: Performed By: #### C MP ####[facility] Ugtacoybbd835[address] [place], [place] [address]Dr. Farhat Leal FK506 (TACROLIMUS) WHOLE BLO ODon 06-15-2022 Tacrolimus (FK506), Blood 16.4 ng/mL Normal 2.0-20.0 [facility] Comment on above: Result Comment: Trou gh (immediately following transplant) 15.0 . Trough (steady state, 2 weeks or more after transplant): 3.0 - 8.0 . Performed by LC-MS/MS technology. Performed By: #### F [id number] ####[facility] Ekxplwvybd1137[address] [place], [place] [address]Dr. Farhat Leal PROTIMEon 06-15-2022 INR Coag (PPP) [Relative time] 1.64 {INR} Normal [facility] Comment on above: Performed By: #### P T ####[facility] Ptbprgzrtp2216[address] [place], [place] [address]Dr. Farhat Leal INR GUIDELINES SEE BELOW Normal [facility] Comment on above: Result Comment: MALINA RED INR: 2.0 - 3.0 CONDITIONS NOT LISTED BELOW 2.5 - 3.5 FOR PROSTHETIC HEART VALVE REPLACEMENT 2.5 - 3.5 RECURRENT THROMBOSIS Performed By: #### P T ####[facility] Rjgnlhfguk[address] [place], [place] [address]DrSkylar Leal PT Coag (PPP) [Time] 16.9 s Critically high 9.0-11.6 [facility] Comment on above: Performed By: #### P T ####[facility] Dfcgbaorzv507[address] [place], [place] [address]DrSkylar Leal CBC AUTO DIFFon 06-12-2022 BASO # 0.0 103/ul Normal 0.0-0.1 [facility] Comment on above: Performed By: #### C BC ####[facility] Zleztxlkks[address] [place], [place] [address]DrSkylar Leal Basophils/100 WBC (Bld) 0.4 % Normal 0.2-2.0 [facility] Comment on above: Performed By: #### C BC ####[facility] Kjahzuuwxn6490[address] [place], [place] [address]DrSkylar Leal EO # 0.4 103/ul Normal 0.0-0.7 [facility] Comment on above: Performed By: #### C BC ####[facility] Jrwjrtauhn0664[address] [place], [place] [address]Dr. Farhat Leal Eosinophils/100 WBC (Bld) 5.4 % Normal 0.9-7.0 [facility] Comment on above: Performed By: #### C BC ####[facility] Uyzvvcpmpf4859[address] [place], [place] [address]Dr. Farhat Leal Erythrocyte distribution width (RBC) [Ratio] 14.7 % Normal 11.0-15.0 [facility] Comment on above: Performed By: #### C BC ####[facility] Vhinldeqtz646[address] [place], [place] [address]Dr. Farhat Leal Hematocrit (Bld) [Volume fraction] 34.8 % Critically low 42.0-54.0 [facility] Comment on above: Performed By: #### C BC ####[facility] Qkcvtcjkue2569[address] [place], [place] [address]Dr. Farhat Leal Hemoglobin (Bld) [Mass/Vol] 11.7 g/dL Critically low 14.0-18.0 [facility] Comment on above: Performed By: #### C BC ####[facility] Begogavssw2864[address] [place], [place] [address]Dr. Farhat Elvis IG # 0.02 10e3/ul Normal 0.00-0.03 [facility] Comment on above: Performed By: #### C BC ####[facility] Mmhkeijbiu482[address] [place], [place] [address]Dr. Farhat Elvis IG % 0.3 % Normal 0.0-0.5 [facility] Comment on above: Performed By: #### C BC ####[facility] Jqftomwyfr6937[address] [place], [place] [address]Dr. Farhat Leal LYMPH # 2.5 103/ul Normal 1.2-3.8 [facility] Comment on above: Performed By: #### C BC ####[facility] Cjmhzvlgea3655[address] [place], [place] [address]DrSkylar Leal Lymphocytes/100 WBC (Bld) 36.8 % Normal 20.5-60.0 [facility] Comment on above: Performed By: #### C BC ####[facility] Qgbtahwdme64[address] [place] [address]DrSkylar Leal MANUAL DIFF REQ NO Normal [facility] Comment on above: Performed By: #### C BC ####[facility] Tfwtvkopef13[address] [place] [address]DrSkylar Leal MCH (RBC) [Entitic mass] 30.9 pg Normal 25.9-34.0 [facility] Comment on above: Performed By: #### C BC ####[facility] Spdeysmcjq912[address] [place], [place] [address]DrSkylar Leal MCHC (RBC) [Mass/Vol] 33.6 g/dL Normal 29.9-35.2 [facility] Comment on above: Performed By: #### C BC ####[facility] Gydwfyovjy034[address] [place], [place] [address]DrSkylar Leal MCV (RBC) [Entitic vol] 91.8 fL Normal 80.0-94.0 [facility] Comment on above: Performed By: #### C BC ####[facility] Gdlygpmhtk[address] [place], [place] [address]DrSkylar Leal MONO # 0.8 103/ul Normal 0.3-0.8 [facility] Comment on above: Performed By: #### C BC ####[facility] Yjacidnoow358[address] [place], [place] [address]DrSkylar Leal Monocytes/100 WBC (Bld) 11.9 % Normal 1.7-12.0 [facility] Comment on above: Performed By: #### C BC ####[facility] Qxkoqpkypa0029[address] [place], [place] [address]DrSkylar Leal NEUT # 3.1 103/ul Normal 1.4-6.5 [facility] Comment on above: Performed By: #### C BC ####[facility] Hahpvaclkj3155[address] [place], [place] [address]DrSkylar Leal Neutrophils/100 WBC (Bld) 45.2 % Normal 43.0-75.0 [facility] Comment on above: Performed By: #### C BC ####[facility] Nyxvhumgov[address] [place] [address]Dr. Farhat Leal Platelet mean volume (Bld) [Entitic vol] 10.5 fL Normal 9.5-13.5 [facility] Comment on above: Performed By: #### C BC ####[facility] Xwwjtjkxbr[address] [place] [address]Dr. Farhat Leal PLT 175 103/ul Normal 150-450 [facility] Comment on above: Performed By: #### C BC ####[facility] Ikmtbmixhq388[address] [place], [place] [address]Dr. Farhat Leal RBC 3.79 106/ul Critically low 4.70-6.10 [facility] Comment on above: Performed By: #### C BC ####[facility] Coqqsphfxs3420[address] [place], [place] [address]Dr. Farhat Leal WBC 6.8 103/ul Normal 4.0-11.0 [facility] Comment on above: Performed By: #### C BC ####[facility] Qqzvsajnjj[address] [place], [place] [address]Dr. Farhat Leal MAGNESIUMon 06-12-2022 Magnesium [Mass/Vol] 1.6 mg/dL Critically low 1.8-2.4 [facility] Comment on above: Performed By: #### C MP, MG, PHOS ####[facility] Lhgederocr8560[address] [place], [place] [address]Dr. Farhat Leal PHOSPHORUSon 06-12-2022 Phosphate [Mass/Vol] 3.8 mg/dL Normal 2.6-4.7 [facility] Comment on above: Performed By: #### C MP, MG, PHOS ####[facility] Ychanatuoz035[address] [place], [place] [address]Dr. Farhat Leal PROF 14(COMP METB)on 023 Albumin [Mass/Vol] 2.6 g/dL Critically low 3.4-5.0 [facility] Comment on above: Performed By: #### C MP, MG, PHOS ####[facility] Naqgdmnebe[address] [place] [address]Dr. Farhat Elvis Albumin/Globulin [Mass ratio] 0.8 {ratio} Normal [facility] Comment on above: Performed By: #### C MP, MG, PHOS ####[facility] Ktdptwvdkk[address] [place] [address]Dr. Farhat Elvis ALP [Catalytic activity/Vol] 64 U/L Normal 46-116 [facility] Comment on above: Performed By: #### C MP, MG, PHOS ####[facility] Twtlspyuuw668[address] [place], [place] [address]Dr. Farhat Elvis ALT [Catalytic activity/Vol] 18 U/L Normal 16-63 [facility] Comment on above: Performed By: #### C MP, MG, PHOS ####[facility] Ullutvjhvb974[address] [place], [place] [address]Dr. Farhat Leal Anion gap [Moles/Vol] 12.9 mmol/L Normal [facility] Comment on above: Performed By: #### C MP, MG, PHOS ####[facility] Jjqzgqmjcg6139[address] [place], [place] [address]Dr. Madelynlorri Leal AST [Catalytic activity/Vol] 18 U/L Normal 15-37 [facility] Comment on above: Performed By: #### C MP, MG, PHOS ####[facility] Wuowdneaes9744[address] [place], [place] [address]Dr. Farhat Leal Bilirubin [Mass/Vol] 0.4 mg/dL Normal 0.2-1.0 [facility] Comment on above: Performed By: #### C MP, MG, PHOS ####[facility] Kbbyuuqghs[address] [place], [place] [address]Dr. Farhat Leal Calcium [Mass/Vol] 8.7 mg/dL Normal 8.5-10.1 [facility] Comment on above: Performed By: #### C MP, MG, PHOS ####[facility] Jmlhknhotu999[address] [place], [place] [address]Dr. Farhat Leal Chloride [Moles/Vol] 105 mmol/L Normal 98-107 [facility] Comment on above: Performed By: #### C MP, MG, PHOS ####[facility] Vrcpskbptt[address] [place] [address]Dr. Farhat Leal CO2 [Moles/Vol] 27.9 mmol/L Normal 21.0-32.0 [facility] Comment on above: Performed By: #### C MP, MG, PHOS ####[facility] Bslrcvhsgs9327[address] [place], [place] [address]Dr. Farhat Leal Creatinine [Mass/Vol] 1.53 mg/dL Critically high 0.70-1.30 [facility] Comment on above: Performed By: #### C MP, MG, PHOS ####[facility] Qflxddmyvi164[address] [place], [place] [address]Dr. Farhat Leal EGFR-AF ICELANDIC 54 mL/min/1.73m2 Critically low >=60 [facility] Comment on above: Performed By: #### C MP, MG, PHOS ####[facility] Hmnfvxalek7424[address] [place], [place] [address]Dr. Farhat Leal EGFR-NON AF ICELANDIC 44 mL/min/1.73m2 Critically low >=60 [facility] Comment on above: Performed By: #### C MP, MG, PHOS ####[facility] Hhgrbxymdc5232[address] [place], [place] [address]Dr. Farhat Leal Globulin (S) [Mass/Vol] 3.4 g/dL Normal [facility] Comment on above: Performed By: #### C MP, MG, PHOS ####[facility] Wocpemqkax39[address] [place] [address]Dr. Farhat Leal Glucose [Mass/Vol] 179 mg/dL Critically high 74-106 [facility] Comment on above: Performed By: #### C MP, MG, PHOS ####[facility] Eppnrjymdb340[address] [place], [place] [address]Dr. Farhat Leal Potassium [Moles/Vol] 3.8 mmol/L Normal 3.5-5.1 [facility] Comment on above: Performed By: #### C MP, MG, PHOS ####[facility] Lxnvglemzc[address] [place] [address]Dr. Farhat Leal Protein [Mass/Vol] 6.0 g/dL Critically low 6.4-8.2 [facility] Comment on above: Performed By: #### C MP, MG, PHOS ####[facility] Uqonogsdhu[address] [place] [address]Dr. Farhat Leal Sodium [Moles/Vol] 142 mmol/L Normal 136-145 [facility] Comment on above: Performed By: #### C MP, MG, PHOS ####[facility] Tthpziexcf6425[address] [place], [place] [address]Dr. Madelynlorri Leal Urea nitrogen [Mass/Vol] 56.0 mg/dL Critically high 7.0-18.0 [facility] Comment on above: Performed By: #### C MP, MG, PHOS ####[facility] Zzbkimlopo3579[address] [place], [place] [address]Dr. Farhat Leal Urea nitrogen/Creatinine [Mass ratio] 36.6 mg/mg Normal [facility] Comment on above: Performed By: #### C MP, MG, PHOS ####[facility] Dseoqkgtri146[address] [place], [place] [address]Dr. Madelynlorri Leal FK506 (TACROLIMUS) WHOLE BLO ODon 06-08-2022 Tacrolimus (FK506), Blood 13.2 ng/mL Normal 2.0-20.0 [facility] Comment on above: Result Comment: Trou gh (immediately following transplant) 15.0 . Trough (steady state, 2 weeks or more after transplant): 3.0 - 8.0 . Performed by LC-MS/MS technology. Performed By: #### F K506T ####[facility] Lsilrbhhjd260[address] [place], [place] [address]Dr. Farhat Leal CBC AUTO DIFFon 06-05-2022 BASO # 0.1 103/ul Normal 0.0-0.1 [facility] Comment on above: Performed By: #### C BC ####[facility] Yestbtontg5560[address] [place], [place] [address]Dr. Farhat Leal Basophils/100 WBC (Bld) 0.8 % Normal 0.2-2.0 [facility] Comment on above: Performed By: #### C BC ####[facility] Einyhzyrgz[address] [place], [place] [address]Dr. Farhat Leal EO # 0.3 103/ul Normal 0.0-0.7 [facility] Comment on above: Performed By: #### C BC ####[facility] Bvgjpmojhu2064[address] [place], [place] [address]Dr. Farhat Leal Eosinophils/100 WBC (Bld) 4.7 % Normal 0.9-7.0 [facility] Comment on above: Performed By: #### C BC ####[facility] Kmggkunjeo650[address] [place], [place] [address]Dr. Farhat Leal Erythrocyte distribution width (RBC) [Ratio] 15.1 % Critically high 11.0-15.0 [facility] Comment on above: Performed By: #### C BC ####[facility] P[address]xkzpelzw33[address] [place], [place] [address]Dr. Farhat Leal Hematocrit (Bld) [Volume fraction] 35.5 % Critically low 42.0-54.0 [facility] Comment on above: Performed By: #### C BC ####[facility] Apceswxomc[address] [place], [place] [address]Dr. Farhat Leal Hemoglobin (Bld) [Mass/Vol] 11.7 g/dL Critically low 14.0-18.0 [facility] Comment on above: Performed By: #### C BC ####[facility] Zjvhqcdwmu8[address] [place], [place] [address]Dr. Farhat Leal IG # 0.01 10e3/ul Normal 0.00-0.03 [facility] Comment on above: Performed By: #### C BC ####[facility] Kqlvsgdhag593[address] [place], [place] [address]Dr. Farhat Leal IG % 0.2 % Normal 0.0-0.5 [facility] Comment on above: Performed By: #### C BC ####[facility] Njtpdfyxed37[address] [place] [id number]. Madelynlorri Leal LYMPH # 2.1 103/ul Normal 1.2-3.8 [facility] Comment on above: Performed By: #### C BC ####[facility] Exfeefkdsj36[address] [place] [id number]. Farhat Leal Lymphocytes/100 WBC (Bld) 34.5 % Normal 20.5-60.0 [facility] Comment on above: Performed By: #### C BC ####[facility] Aafvjplzao[address] [place] [address]Dr. Farhat Leal MANUAL DIFF REQ NO Normal [facility] Comment on above: Performed By: #### C BC ####[facility] Qeyopjkvur[address] [place] [address]Dr. Madelynlorri Leal MCH (RBC) [Entitic mass] 30.6 pg Normal 25.9-34.0 [facility] Comment on above: Performed By: #### C BC ####[facility] [address]opfzlpau[address] [place] [address]Dr. Madelynlorri Leal MCHC (RBC) [Mass/Vol] 33.0 g/dL Normal 29.9-35.2 [facility] Comment on above: Performed By: #### C BC ####[facility] Hyhrdlizku[address] [place] [address]Dr. Farhat Leal MCV (RBC) [Entitic vol] 92.9 fL Normal 80.0-94.0 [facility] Comment on above: Performed By: #### C BC ####[facility] Mrfydzmvub[address] [place] [address]Dr. Farhat Leal MONO # 0.7 103/ul Normal 0.3-0.8 [facility] Comment on above: Performed By: #### C BC ####[facility] Oehqysxawi[address] [place], [place] [address]Dr. Farhat Leal Monocytes/100 WBC (Bld) 11.4 % Normal 1.7-12.0 [facility] Comment on above: Performed By: #### C BC ####[facility] Hdqtrpmyql58[address] [place] [id number]. Farhat Leal NEUT # 2.9 103/ul Normal 1.4-6.5 [facility] Comment on above: Performed By: #### C BC ####[facility] Dheaeyelob[address] [place] [address]Dr. Farhat Leal Neutrophils/100 WBC (Bld) 48.4 % Normal 43.0-75.0 [facility] Comment on above: Performed By: #### C BC ####[facility] Bmjvewtmvq[address] [place] [address]Dr. Farhat Leal Platelet mean volume (Bld) [Entitic vol] 10.7 fL Normal 9.5-13.5 [facility] Comment on above: Performed By: #### C BC ####[facility] Pulnkmcptu[address] [place] [address]Dr. Farhat Leal PLT 185 103/ul Normal 150-450 [facility] Comment on above: Performed By: #### C BC ####[facility] Aqmpymyvtm74[address] [place], [place] [address]Dr. Farhat Leal RBC 3.82 106/ul Critically low 4.70-6.10 [facility] Comment on above: Performed By: #### C BC ####[facility] Cbctgopsvf[address] [place] [address]Dr. Farhat Leal WBC 6.0 103/ul Normal 4.0-11.0 [facility] Comment on above: Performed By: #### C BC ####[facility] Tpwbzvpzhy[address] [place], [place] [address]Dr. Farhat Leal MAGNESIUMon 06-05-2022 Magnesium [Mass/Vol] 1.9 mg/dL Normal 1.8-2.4 [facility] Comment on above: Performed By: #### P HOS, MG ####[facility] Kngbcoimdh35[address] [place], [place] [address]Dr. Farhat Leal PHOSPHORUSon 06-05-2022 Phosphate [Mass/Vol] 4.4 mg/dL Normal 2.6-4.7 [facility] Comment on above: Performed By: #### P HOS, MG ####[facility] Xnhtfvvfkc[address] [place] [address]Dr. Farhat Leal PROTIMEon 06-05-2022 INR Coag (PPP) [Relative time] 2.16 {INR} Normal [facility] Comment on above: Performed By: #### P T ####[facility] Mefqmwgnux[address] [place] [address]Dr. Farhat Leal INR GUIDELINES SEE BELOW Normal [facility] Comment on above: Result Comment: MALINA RED INR: 2.0 - 3.0 CONDITIONS NOT LISTED BELOW 2.5 - 3.5 FOR PROSTHETIC HEART VALVE REPLACEMENT 2.5 - 3.5 RECURRENT THROMBOSIS Performed By: #### P T ####[facility] Gnyqtzsawd11[address] [place], [place] [address]Dr. Farhat Leal PT Coag (PPP) [Time] 21.9 s Critically high 9.0-11.6 [facility] Comment on above: Performed By: #### P T ####[facility] Ffmvecgylv[address] [place], [place] [address]Dr. Farhat Leal FK506 (TACROLIMUS) WHOLE BLO ODon 06-01-2022 Tacrolimus (FK506), Blood 26.4 ng/mL Invalid Interpretation Code 2.0-20.0 [facility] Comment on above: Result Comment: Trou gh (immediately following transplant) 15.0 . Trough (steady state, 2 weeks or more after transplant): 3.0 - 8.0 . Performed by LC-MS/MS technology.Patient drug level exceeds published reference range. Evaluateclinically for signs of potential toxicity. Performed By: #### F [id number] ####[facility] K[address]uvkoozv[address] [place], [place] [address]Dr. Farhat Leal CBC AUTO DIFFon 05-29-2022 BASO # 0.0 103/ul Normal 0.0-0.1 [facility] Comment on above: Performed By: #### C BC ####[facility] Begcwoxjvy732[address] [place], [place] [address]Dr. Farhat Leal Basophils/100 WBC (Bld) 0.6 % Normal 0.2-2.0 [facility] Comment on above: Performed By: #### C BC ####[facility] Bigjndtycg[address] [place] [address]Dr. Farhat Leal EO # 0.3 103/ul Normal 0.0-0.7 [facility] Comment on above: Performed By: #### C BC ####[facility] Geranhcfje[address] [place], [place] [address]Dr. Farhat Leal Eosinophils/100 WBC (Bld) 4.7 % Normal 0.9-7.0 [facility] Comment on above: Performed By: #### C BC ####[facility] [address]llfvsjfrv[address] [place], [place] [address]Dr. Farhat Leal Erythrocyte distribution width (RBC) [Ratio] 15.3 % Critically high 11.0-15.0 [facility] Comment on above: Performed By: #### C BC ####[facility] Ktchzhwbxg[address] [place], [place] [address]Dr. Farhat Leal Hematocrit (Bld) [Volume fraction] 36.6 % Critically low 42.0-54.0 [facility] Comment on above: Performed By: #### C BC ####[facility] [address]jvagwveb[address] [place], [place] [address]Dr. Farhat Leal Hemoglobin (Bld) [Mass/Vol] 12.3 g/dL Critically low 14.0-18.0 [facility] Comment on above: Performed By: #### C BC ####[facility] Loiwdrflad[address] [place], [place] [address]Dr. Farhat Leal IG # 0.02 10e3/ul Normal 0.00-0.03 [facility] Comment on above: Performed By: #### C BC ####[facility] Trrrznasqm32[address] [place], [place] [address]Dr. Farhat Leal IG % 0.3 % Normal 0.0-0.5 [facility] Comment on above: Performed By: #### C BC ####[facility] Lrmezvxtsm40[address] [place], [place] [address]Dr. Farhat Leal LYMPH # 2.8 103/ul Normal 1.2-3.8 [facility] Comment on above: Performed By: #### C BC ####[facility] Jfeopokobf4960 [place] [id number]. Farhat Leal Lymphocytes/100 WBC (Bld) 44.4 % Normal 20.5-60.0 [facility] Comment on above: Performed By: #### C BC ####[facility] Vvepumabvz5888 [place] [id number]. Farhat Leal MANUAL DIFF REQ NO Normal [facility] Comment on above: Performed By: #### C BC ####[facility] Hsctoqhaik4665 [place] [id number]. Farhat Elvis MCH (RBC) [Entitic mass] 30.4 pg Normal 25.9-34.0 [facility] Comment on above: Performed By: #### C BC ####[facility] Mbztffviva47[address] [place], [place] [address]Dr. Farhat Elvis MCHC (RBC) [Mass/Vol] 33.6 g/dL Normal 29.9-35.2 [facility] Comment on above: Performed By: #### C BC ####[facility] Xndusudlfv[address] [place], [place] [id number]. Farhat Elvis MCV (RBC) [Entitic vol] 90.4 fL Normal 80.0-94.0 [facility] Comment on above: Performed By: #### C BC ####[facility] Qrfjjtqdht6[address] [place], [place] [address]Dr. Madelynlorri Elvis MONO # 0.7 103/ul Normal 0.3-0.8 [facility] Comment on above: Performed By: #### C BC ####[facility] Qpnctuhoil[address] [place], [place] [address]Dr. Madelynlorri Leal Monocytes/100 WBC (Bld) 10.7 % Normal 1.7-12.0 [facility] Comment on above: Performed By: #### C BC ####[facility] Xwbtndqrnj[address] [place], [place] [address]Dr. Farhat Leal NEUT # 2.5 103/ul Normal 1.4-6.5 [facility] Comment on above: Performed By: #### C BC ####[facility] Ogogggnlyw4030 [place] [id number]. Farhat Leal Neutrophils/100 WBC (Bld) 39.3 % Critically low 43.0-75.0 [facility] Comment on above: Performed By: #### C BC ####[facility] Lmbebmwfao8732 [place] [id number]. Farhat Leal Platelet mean volume (Bld) [Entitic vol] 10.5 fL Normal 9.5-13.5 [facility] Comment on above: Performed By: #### C BC ####[facility] Fyedgrsiqg3472 [place] [address]Dr. Farhat Leal PLT 190 103/ul Normal 150-450 [facility] Comment on above: Performed By: #### C BC ####[facility] Baiehzovnu9677 [place] [address]Dr. Farhat Leal RBC 4.05 106/ul Critically low 4.70-6.10 [facility] Comment on above: Performed By: #### C BC ####[facility] Gwsrpfmsgz6442 [place] [id number]. Farhat Leal WBC 6.4 103/ul Normal 4.0-11.0 [facility] Comment on above: Performed By: #### C BC ####[facility] Xrbcielltq0855 [place] [address]Dr. Farhat Leal PROF 14(COMP METB)on 023 Albumin [Mass/Vol] 2.5 g/dL Critically low 3.4-5.0 [facility] Comment on above: Performed By: #### C MP ####[facility] Hkdasghrgz1406 [place] [address]Dr. Farhat Leal Albumin/Globulin [Mass ratio] 0.8 {ratio} Normal [facility] Comment on above: Performed By: #### C MP ####[facility] Tclzbkiaej1084 [place] [address]Dr. Farhat Leal ALP [Catalytic activity/Vol] 61 U/L Normal 46-116 [facility] Comment on above: Performed By: #### C MP ####[facility] Yxvagevuqo9028 [place] [id number]. Farhat Leal ALT [Catalytic activity/Vol] 16 U/L Normal 16-63 [facility] Comment on above: Performed By: #### C MP ####[facility] Dksrqxwdzs0164 [place] [id number]. Farhat Leal Anion gap [Moles/Vol] 12.3 mmol/L Normal [facility] Comment on above: Performed By: #### C MP ####[facility] Frcffnccwx6475 [place] [id number]. Farhat Leal AST [Catalytic activity/Vol] 18 U/L Normal 15-37 [facility] Comment on above: Performed By: #### C MP ####[facility] Nvixhpojjm[address] [place], [place] [address]Dr. Farhat Leal Bilirubin [Mass/Vol] 0.5 mg/dL Normal 0.2-1.0 [facility] Comment on above: Performed By: #### C MP ####[facility] Dnhctykhbl8281 [place] [address]Dr. Farhat Leal Calcium [Mass/Vol] 8.6 mg/dL Normal 8.5-10.1 [facility] Comment on above: Performed By: #### C MP ####[facility] Qvblalsgth[address] [place], [place] [address]Dr. Farhat Leal Chloride [Moles/Vol] 105 mmol/L Normal 98-107 [facility] Comment on above: Performed By: #### C MP ####[facility] Pcxhthladi8866 [place] [id number]. Farhat Leal CO2 [Moles/Vol] 28.6 mmol/L Normal 21.0-32.0 [facility] Comment on above: Performed By: #### C MP ####[facility] Juuwohlezc[address] [place], [place] [address]Dr. Farhat Elvis Creatinine [Mass/Vol] 1.47 mg/dL Critically high 0.70-1.30 [facility] Comment on above: Performed By: #### C MP ####[facility] Clinpkantx0580 [place] [id number]. Farhat Leal EGFR-AF ICELANDIC 56 mL/min/1.73m2 Critically low >=60 [facility] Comment on above: Performed By: #### C MP ####[facility] Uuqxjmnequ9452 [place] [id number]. Farhat Leal EGFR-NON AF ICELANDIC 46 mL/min/1.73m2 Critically low >=60 [facility] Comment on above: Performed By: #### C MP ####[facility] Pzriogwhlj7985 [place] [address]Dr. Farhat Elvis Globulin (S) [Mass/Vol] 3.3 g/dL Normal [facility] Comment on above: Performed By: #### C MP ####[facility] Dbmscoaiml9006 [place] [address]Dr. Farhat Leal Glucose [Mass/Vol] 164 mg/dL Critically high 74-106 [facility] Comment on above: Performed By: #### C MP ####[facility] Dzahcaicmx6068 [place] [address]Dr. Farhat Leal Potassium [Moles/Vol] 3.9 mmol/L Normal 3.5-5.1 [facility] Comment on above: Performed By: #### C MP ####[facility] Lmnrhvtkmx4347 [place] [address]Dr. Farhat Leal Protein [Mass/Vol] 5.8 g/dL Critically low 6.4-8.2 [facility] Comment on above: Performed By: #### C MP ####[facility] Ffdgkcmaug9285 [place] [address]Dr. Farhat Leal Sodium [Moles/Vol] 142 mmol/L Normal 136-145 [facility] Comment on above: Performed By: #### C MP ####[facility] Ztuzjmdmho2543 [place] [id number]. Farhat Elvis Urea nitrogen [Mass/Vol] 53.0 mg/dL Critically high 7.0-18.0 [facility] Comment on above: Performed By: #### C MP ####[facility] Ipaubdcycf2025 [place] [address]Dr. Farhat Leal Urea nitrogen/Creatinine [Mass ratio] 36.1 mg/mg Normal [facility] Comment on above: Performed By: #### C MP ####[facility] Lazcekvreu9528 [place] [address]Dr. Farhat Leal PROTIMEon 05-29-2022 INR Coag (PPP) [Relative time] 2.41 {INR} Normal [facility] Comment on above: Performed By: #### P T ####[facility] Krlovvmbsg[address] [place], [place] [address]Dr. Farhat eLal INR GUIDELINES SEE BELOW Normal [facility] Comment on above: Result Comment: MALINA RED INR: 2.0 - 3.0 CONDITIONS NOT LISTED BELOW 2.5 - 3.5 FOR PROSTHETIC HEART VALVE REPLACEMENT 2.5 - 3.5 RECURRENT THROMBOSIS Performed By: #### P T ####[facility] Qbtrzqlbfi9764[address] [place], [place] [address]Dr. Farhat Leal PT Coag (PPP) [Time] 24.3 s Critically high 9.0-11.6 [facility] Comment on above: Performed By: #### P T ####[facility] Shjwvwyqkb4232[address] [place], [place] [address]Dr. Farhat Leal FK506 (TACROLIMUS) WHOLE BLO ODon 05-25-2022 Tacrolimus (FK506), Blood 5.1 ng/mL Normal 2.0-20.0 [facility] Comment on above: Result Comment: Trou gh (immediately following transplant) 15.0 . Trough (steady state, 2 weeks or more after transplant): 3.0 - 8.0 . Performed by LC-MS/MS technology. Performed By: #### F K506T ####[facility] Ndfjmcwloa35[address] [place], [place] [address]Dr. Farhat Leal CBC AUTO DIFFon 05-22-2022 BASO # 0.0 103/ul Normal 0.0-0.1 [facility] Comment on above: Performed By: #### C BC ####[facility] Czielkzgtg9992 [place] [address]Dr. Farhat Leal Basophils/100 WBC (Bld) 0.5 % Normal 0.2-2.0 [facility] Comment on above: Performed By: #### C BC ####[facility] Rwjogkxxfb9394 [place] [address]Dr. Farhat Leal EO # 0.2 103/ul Normal 0.0-0.7 [facility] Comment on above: Performed By: #### C BC ####[facility] Mdgwgolpej4550[address] [place], [place] [address]Dr. Farhat Leal Eosinophils/100 WBC (Bld) 4.0 % Normal 0.9-7.0 [facility] Comment on above: Performed By: #### C BC ####[facility] Rmwdcjuvmv[address] [place], [place] [address]Dr. Farhat Leal Erythrocyte distribution width (RBC) [Ratio] 15.5 % Critically high 11.0-15.0 [facility] Comment on above: Performed By: #### C BC ####[facility] Eiumfgoldi[address] [place], [place] [address]Dr. Farhat Leal Hematocrit (Bld) [Volume fraction] 34.1 % Critically low 42.0-54.0 [facility] Comment on above: Performed By: #### C BC ####[facility] Onztzhudgc[address] [place], [place] [address]Dr. Farhat Leal Hemoglobin (Bld) [Mass/Vol] 11.3 g/dL Critically low 14.0-18.0 [facility] Comment on above: Performed By: #### C BC ####[facility] Sgwumkbzup[address] [place], [place] [address]Dr. Farhat Leal IG # 0.03 10e3/ul Normal 0.00-0.03 [facility] Comment on above: Performed By: #### C BC ####[facility] Owcokjfcwb[address] [place], [place] [address]Dr. Farhat Leal IG % 0.5 % Normal 0.0-0.5 [facility] Comment on above: Performed By: #### C BC ####[facility] Gfmewsygvp0035 [place] [id number]. Farhat Leal LYMPH # 2.1 103/ul Normal 1.2-3.8 [facility] Comment on above: Performed By: #### C BC ####[facility] Mkkkqfuaew1418 [place] [id number]. Farhat Leal Lymphocytes/100 WBC (Bld) 34.6 % Normal 20.5-60.0 [facility] Comment on above: Performed By: #### C BC ####[facility] Gdzurpyadr0483 [place] [id number]. Farhat Elvis MANUAL DIFF REQ NO Normal [facility] Comment on above: Performed By: #### C BC ####[facility] Wnqiyygiph7950 [place] [id number]. Farhat Elvis MCH (RBC) [Entitic mass] 30.3 pg Normal 25.9-34.0 [facility] Comment on above: Performed By: #### C BC ####[facility] Keysfhvwse4292 [place] [id number]. Farhat Leal MCHC (RBC) [Mass/Vol] 33.1 g/dL Normal 29.9-35.2 [facility] Comment on above: Performed By: #### C BC ####[facility] Ntwgtmpwqf4064 [place] [id number]. Farhat Leal MCV (RBC) [Entitic vol] 91.4 fL Normal 80.0-94.0 [facility] Comment on above: Performed By: #### C BC ####[facility] Nbvxiseggd2677 [place] [id number]. Farhat Elvis MONO # 0.7 103/ul Normal 0.3-0.8 [facility] Comment on above: Performed By: #### C BC ####[facility] Lcbfvdjjnt3887 [place] [id number]. Farhat Elvis Monocytes/100 WBC (Bld) 11.6 % Normal 1.7-12.0 [facility] Comment on above: Performed By: #### C BC ####[facility] Knerxderfv2658 [place] [id number]. Farhat Leal NEUT # 2.9 103/ul Normal 1.4-6.5 [facility] Comment on above: Performed By: #### C BC ####[facility] Zewzsgrgnu8635 [place] [id number]. Farhat Leal Neutrophils/100 WBC (Bld) 48.8 % Normal 43.0-75.0 [facility] Comment on above: Performed By: #### C BC ####[facility] Wacugadwxy8857 [place] [id number]. Farhat Leal Platelet mean volume (Bld) [Entitic vol] 10.9 fL Normal 9.5-13.5 [facility] Comment on above: Performed By: #### C BC ####[facility] Ixrqdlyelk8486 [place] [id number]. Farhat Elvis PLT 186 103/ul Normal 150-450 [facility] Comment on above: Performed By: #### C BC ####[facility] Cygrnurqnd7307 [place] [phone]. Farhat Elvis RBC 3.73 106/ul Critically low 4.70-6.10 [facility] Comment on above: Performed By: #### C BC ####[facility] Dqsivyjdxg8589 [place] [id number]. Farhat Leal WBC 6.0 103/ul Normal 4.0-11.0 [facility] Comment on above: Performed By: #### C BC ####[facility] Olbuanxarz6798 [place] [id number]. Farhat Leal PROF 14(COMP METB)on 023 Albumin [Mass/Vol] 2.7 g/dL Critically low 3.4-5.0 [facility] Comment on above: Performed By: #### C MP ####[facility] Jywzrcgzve0841 [place] [id number]. Madelynlorri Elvis Albumin/Globulin [Mass ratio] 0.8 {ratio} Normal [facility] Comment on above: Performed By: #### C MP ####[facility] Vivlnaqbua1419 [place] [id number]. Farhat Leal ALP [Catalytic activity/Vol] 60 U/L Normal 46-116 [facility] Comment on above: Performed By: #### C MP ####[facility] Tagyblkirp6965 [place] [address]Dr. Farhat Leal ALT [Catalytic activity/Vol] 17 U/L Normal 16-63 [facility] Comment on above: Performed By: #### C MP ####[facility] Leqbmcbvgg729[address] [place], [place] [address]Dr. Farhat Leal Anion gap [Moles/Vol] 9.6 mmol/L Normal [facility] Comment on above: Performed By: #### C MP ####[facility] Xoyjizokob653[address] [place], [place] [address]Dr. Farhat Leal AST [Catalytic activity/Vol] 14 U/L Critically low 15-37 [facility] Comment on above: Performed By: #### C MP ####[facility] Apgiajjfdd239[address] [place], [place] [address]Dr. Farhat Leal Bilirubin [Mass/Vol] 0.5 mg/dL Normal 0.2-1.0 [facility] Comment on above: Performed By: #### C MP ####[facility] Ietpttenpz274[address] [place], [place] [address]Dr. Farhat Leal Calcium [Mass/Vol] 8.4 mg/dL Critically low 8.5-10.1 [facility] Comment on above: Performed By: #### C MP ####[facility] Bkcnvjzxeu9551 [place] [address]Dr. Farhat Leal Chloride [Moles/Vol] 104 mmol/L Normal 98-107 [facility] Comment on above: Performed By: #### C MP ####[facility] Kegfzhtebo035[address] [place], [place] [address]Dr. Farhat Leal CO2 [Moles/Vol] 27.2 mmol/L Normal 21.0-32.0 [facility] Comment on above: Performed By: #### C MP ####[facility] Qdbfcrtlei3082 [place] [address]Dr. Farhat Leal Creatinine [Mass/Vol] 1.24 mg/dL Normal 0.70-1.30 [facility] Comment on above: Performed By: #### C MP ####[facility] Trknmcgvnc8697 [place] [address]Dr. Madelynlorri Elvis EGFR-AF ICELANDIC >60 Normal >=60 [facility] Comment on above: Performed By: #### C MP ####[facility] Kutwdvufbh5018 [place] [address]Dr. Farhat Leal EGFR-NON AF ICELANDIC 57 mL/min/1.73m2 Critically low >=60 [facility] Comment on above: Performed By: #### C MP ####[facility] Bopacsefys307[address] [place], [place] [address]Dr. Farhat Leal Globulin (S) [Mass/Vol] 3.3 g/dL Normal [facility] Comment on above: Performed By: #### C MP ####[facility] Hzwlkkrvsq2715[address] [place], [place] [address]Dr. Farhat Leal Glucose [Mass/Vol] 275 mg/dL Critically high 74-106 [facility] Comment on above: Performed By: #### C MP ####[facility] Uctwkzewsm910[address] [place], [place] [address]Dr. Farhat Leal Potassium [Moles/Vol] 3.8 mmol/L Normal 3.5-5.1 [facility] Comment on above: Performed By: #### C MP ####[facility] Ldrbrvtdcf436[address] [place], [place] [address]Dr. Farhat Leal Protein [Mass/Vol] 6.0 g/dL Critically low 6.4-8.2 [facility] Comment on above: Performed By: #### C MP ####[facility] Rjjabjupys5416[address] [place], [place] [address]Dr. Farhat Leal Sodium [Moles/Vol] 137 mmol/L Normal 136-145 [facility] Comment on above: Performed By: #### C MP ####[facility] Prrkdvqyom107[address] [place], [place] [address]Dr. Farhat Leal Urea nitrogen [Mass/Vol] 54.0 mg/dL Critically high 7.0-18.0 [facility] Comment on above: Performed By: #### C MP ####[facility] Ccgwlpzmwc7194 [place] [address]Dr. Farhat Leal Urea nitrogen/Creatinine [Mass ratio] 43.5 mg/mg Normal [facility] Comment on above: Performed By: #### C MP ####[facility] Uiwiaqrhcq9607[address] [place], [place] [address]Dr. Farhat Leal PROTIMEon 05-22-2022 INR Coag (PPP) [Relative time] 2.27 {INR} Normal [facility] Comment on above: Performed By: #### P T ####[facility] Yigqpxgjcx959[address] [place], [place] [address]DrSkylar Leal INR GUIDELINES SEE BELOW Normal [facility] Comment on above: Result Comment: MALINA RED INR: 2.0 - 3.0 CONDITIONS NOT LISTED BELOW 2.5 - 3.5 FOR PROSTHETIC HEART VALVE REPLACEMENT 2.5 - 3.5 RECURRENT THROMBOSIS Performed By: #### P T ####[facility] [address]sb[address] [place] [address]. Farhat Leal PT Coag (PPP) [Time] 23.0 s Critically high 9.0-11.6 [facility] Comment on above: Performed By: #### P T ####[facility] L[address]qx[address]qr[address] [place] [address]. Farhat Leal FK506 (TACROLIMUS) WHOLE BLO ODon 05-19-2022 Tacrolimus (FK506), Blood 7.8 ng/mL Normal 2.0-20.0 [facility] Comment on above: Result Comment: Trou gh (immediately following transplant) 15.0 . Trough (steady state, 2 weeks or more after transplant): 3.0 - 8.0 . Performed by LC-MS/MS technology. Performed By: #### F [id number] ####[facility] Uqnwmhotak2718[address] [place], [place] [address]DrSkylar Leal CBC AUTO DIFFon 05-15-2022 BASO # 0.0 103/ul Normal 0.0-0.1 [facility] Comment on above: Performed By: #### C BC ####[facility] Ibrjljmsju6477[address] [place], [place] [address]Dr. Farhat Leal Basophils/100 WBC (Bld) 0.4 % Normal 0.2-2.0 [facility] Comment on above: Performed By: #### C BC ####[facility] Vaekcfuhff844[address] [place], [place] [address]Dr. Farhat Leal EO # 0.2 103/ul Normal 0.0-0.7 [facility] Comment on above: Performed By: #### C BC ####[facility] Mzzurdqtuk6815[address] [place], [place] [address]Dr. Farhat Leal Eosinophils/100 WBC (Bld) 3.0 % Normal 0.9-7.0 [facility] Comment on above: Performed By: #### C BC ####[facility] Otvfncdpsx9722[address] [place], [place] [address]Dr. Farhat Leal Erythrocyte distribution width (RBC) [Ratio] 15.7 % Critically high 11.0-15.0 [facility] Comment on above: Performed By: #### C BC ####[facility] Midrhdkuod8[address] [place], [place] [address]Dr. Farhat Leal Hematocrit (Bld) [Volume fraction] 36.8 % Critically low 42.0-54.0 [facility] Comment on above: Performed By: #### C BC ####[facility] Egemxdntob538[address] [place], [place] [address]Dr. Farhat Leal Hemoglobin (Bld) [Mass/Vol] 12.4 g/dL Critically low 14.0-18.0 [facility] Comment on above: Performed By: #### C BC ####[facility] Nfzsdwgydy9834[address] [place], [place] [address]Dr. Farhat Leal IG # 0.01 10e3/ul Normal 0.00-0.03 [facility] Comment on above: Performed By: #### C BC ####[facility] Bqntaoiaxy85[address] [place], [place] [address]DrSkylar Leal IG % 0.1 % Normal 0.0-0.5 [facility] Comment on above: Performed By: #### C BC ####[facility] Ibjzvdzbpp1221 [place] [address]DrSkylar Madelynlorri Leal LYMPH # 2.4 103/ul Normal 1.2-3.8 [facility] Comment on above: Performed By: #### C BC ####[facility] Cixtfpxycd8836 [place] [address]DrSkylar Leal Lymphocytes/100 WBC (Bld) 35.6 % Normal 20.5-60.0 [facility] Comment on above: Performed By: #### C BC ####[facility] Wfesuckbco[address] [place], [place] [address]DrSkylar Leal MANUAL DIFF REQ NO Normal [facility] Comment on above: Performed By: #### C BC ####[facility] Fymmvkbtnx795789 [address] [address] [place], [place] [address]DrSkylar Leal MCH (RBC) [Entitic mass] 30.1 pg Normal 25.9-34.0 [facility] Comment on above: Performed By: #### C BC ####[facility] Uavyrrcday[address] [place], [place] [address]Dr. Farhat Elvis MCHC (RBC) [Mass/Vol] 33.7 g/dL Normal 29.9-35.2 [facility] Comment on above: Performed By: #### C BC ####[facility] Omzzfcvyun87[address] [place], [place] [address]DrSkylar Leal MCV (RBC) [Entitic vol] 89.3 fL Normal 80.0-94.0 [facility] Comment on above: Performed By: #### C BC ####[facility] Wsbmipzlqw[address] [place], [place] [address]DrSkylar Leal MONO # 0.7 103/ul Normal 0.3-0.8 [facility] Comment on above: Performed By: #### C BC ####[facility] Pbbrxaykfz[address] [place], [place] [id number] Leal Monocytes/100 WBC (Bld) 10.8 % Normal 1.7-12.0 [facility] Comment on above: Performed By: #### C BC ####[facility] [address]elf[address] [place] [address]Dr. Farhat Leal NEUT # 3.4 103/ul Normal 1.4-6.5 [facility] Comment on above: Performed By: #### C BC ####[facility] Bkwuzrvwyv[address] [place] [address]DrSkylar Leal Neutrophils/100 WBC (Bld) 50.1 % Normal 43.0-75.0 [facility] Comment on above: Performed By: #### C BC ####[facility] Ihiufpwqsi[address] [place] [address]Dr. Farhat Leal Platelet mean volume (Bld) [Entitic vol] 10.2 fL Normal 9.5-13.5 [facility] Comment on above: Performed By: #### C BC ####[facility] Lsyykbhiaj56[address] [place], [place] [address]Dr. Farhat Leal PLT 190 103/ul Normal 150-450 [facility] Comment on above: Performed By: #### C BC ####[facility] Beolphvboy[address] [place], [place] [address]Dr. Farhat Leal RBC 4.12 106/ul Critically low 4.70-6.10 [facility] Comment on above: Performed By: #### C BC ####[facility] Oyhffkvoro37[address] [place], [place] [address]Dr. Farhat Leal WBC 6.8 103/ul Normal 4.0-11.0 [facility] Comment on above: Performed By: #### C BC ####[facility] Vrokoyjqxu[address] [place] [address]DrSkylar Leal PROF 14(COMP METB)on 023 Albumin [Mass/Vol] 2.8 g/dL Critically low 3.4-5.0 [facility] Comment on above: Performed By: #### C MP ####[facility] Mbjattlbyj5730[address] [place], [place] [address]DrSkylar Leal Albumin/Globulin [Mass ratio] 0.9 {ratio} Normal [facility] Comment on above: Performed By: #### C MP ####[facility] Klxjtqzljc[address] [place] [address]Dr. Farhat Elvis ALP [Catalytic activity/Vol] 66 U/L Normal 46-116 [facility] Comment on above: Performed By: #### C MP ####[facility] Aufuntzpkc[address] [place] [address]Dr. Madelynlorri Leal ALT [Catalytic activity/Vol] 15 U/L Critically low 16-63 [facility] Comment on above: Performed By: #### C MP ####[facility] Nflevxmjdh597[address] [place], [place] [address]Dr. Farhat Leal Anion gap [Moles/Vol] 11.1 mmol/L Normal [facility] Comment on above: Performed By: #### C MP ####[facility] Cglhdnkgvc4497[address] [place], [place] [address]Dr. Farhat Leal AST [Catalytic activity/Vol] 14 U/L Critically low 15-37 [facility] Comment on above: Performed By: #### C MP ####[facility] Dxapbiouef[address] [place], [place] [address]Dr. Farhat Leal Bilirubin [Mass/Vol] 0.8 mg/dL Normal 0.2-1.0 [facility] Comment on above: Performed By: #### C MP ####[facility] Sccmhmyteo5389[address] [place], [place] [address]Dr. Farhat Leal Calcium [Mass/Vol] 8.9 mg/dL Normal 8.5-10.1 [facility] Comment on above: Performed By: #### C MP ####[facility] Hsdzbqdiug2714[address] [place], [place] [address]Dr. Farhat Lael Chloride [Moles/Vol] 101 mmol/L Normal 98-107 [facility] Comment on above: Performed By: #### C MP ####[facility] Betlfjjlfx489[address] [place], [place] [address]Dr. Farhat Leal CO2 [Moles/Vol] 28.2 mmol/L Normal 21.0-32.0 [facility] Comment on above: Performed By: #### C MP ####[facility] Fbqbfnahav16[address] [place] [id number]. Farhat Leal Creatinine [Mass/Vol] 1.23 mg/dL Normal 0.70-1.30 [facility] Comment on above: Performed By: #### C MP ####[facility] Ymliugomcj12[address] [place] [id number]. Farhat Elvis EGFR-AF ICELANDIC >60 Normal >=60 [facility] Comment on above: Performed By: #### C MP ####[facility] Clnkmuyysh30[address] [place] [id number]. Farhat Elvis EGFR-NON AF ICELANDIC 57 mL/min/1.73m2 Critically low >=60 [facility] Comment on above: Performed By: #### C MP ####[facility] Nbycoekcbd8775 [place] [id number]. Farhat Elvis Globulin (S) [Mass/Vol] 3.2 g/dL Normal [facility] Comment on above: Performed By: #### C MP ####[facility] Kzebqvlkbf4186 [place] [id number]. Farhat Elvis Glucose [Mass/Vol] 333 mg/dL Critically high 74-106 [facility] Comment on above: Performed By: #### C MP ####[facility] Hfzhraisri7148 [place] [id number]. Farhat Elvis Potassium [Moles/Vol] 4.3 mmol/L Normal 3.5-5.1 [facility] Comment on above: Performed By: #### C MP ####[facility] Ftmafqyryd9891 [place] [id number]. Farhat Elvis Protein [Mass/Vol] 6.0 g/dL Critically low 6.4-8.2 [facility] Comment on above: Performed By: #### C MP ####[facility] Ostazcrdwa4086 [place] [id number]. Farhat Elvis Sodium [Moles/Vol] 136 mmol/L Normal 136-145 [facility] Comment on above: Performed By: #### C MP ####[facility] Gxrsaqswfa45[address] [place] [address]Dr. Farhat Leal Urea nitrogen [Mass/Vol] 58.0 mg/dL Critically high 7.0-18.0 [facility] Comment on above: Performed By: #### C MP ####[facility] Crwcqdqbtc20[address] [place], [place] [address]Dr. Farhat Leal Urea nitrogen/Creatinine [Mass ratio] 47.2 mg/mg Normal [facility] Comment on above: Performed By: #### C MP ####[facility] Lanztkkgot4515[address] [place], [place] [address]Dr. Farhat Leal PROTIMEon 05-13-2022 INR Coag (PPP) [Relative time] 3.51 {INR} Normal [facility] Comment on above: Performed By: #### P T ####[facility] Ezgfbgnfxm9616[address] [place], [place] [address]Dr. Farhat Leal INR GUIDELINES SEE BELOW Normal [facility] Comment on above: Result Comment: MALINA RED INR: 2.0 - 3.0 CONDITIONS NOT LISTED BELOW 2.5 - 3.5 FOR PROSTHETIC HEART VALVE REPLACEMENT 2.5 - 3.5 RECURRENT THROMBOSIS Performed By: #### P T ####[facility] Kawuutcitg504[address] [place], [place] [address]Dr. Farhat Leal PT Coag (PPP) [Time] 34.7 s Critically high 9.0-11.6 [facility] Comment on above: Performed By: #### P T ####[facility] Ytfizmjuem280[address] [place], [place] [address]Dr. Farhat Leal FK506 (TACROLIMUS) WHOLE BLO ODon 05-11-2022 Tacrolimus (FK506), Blood 14.4 ng/mL Normal 2.0-20.0 [facility] Comment on above: Result Comment: Trou gh (immediately following transplant) 15.0 . Trough (steady state, 2 weeks or more after transplant): 3.0 - 8.0 . Performed by LC-MS/MS technology. Performed By: #### F K506T ####[facility] [address]hs[address] [place] [address]Dr. Farhat Leal CBC AUTO DIFFon 05-08-2022 BASO # 0.0 103/ul Normal 0.0-0.1 [facility] Comment on above: Performed By: #### C BC ####[facility] Cmgtorhahe508[address] [place], [place] [address]Dr. Farhat Elvis Basophils/100 WBC (Bld) 0.5 % Normal 0.2-2.0 [facility] Comment on above: Performed By: #### C BC ####[facility] Tujygksakq8469[address] [place], [place] [address]Dr. Farhat Leal EO # 0.2 103/ul Normal 0.0-0.7 [facility] Comment on above: Performed By: #### C BC ####[facility] Gdlkxteezr7849[address] [place], [place] [address]Dr. Madelynlorri Leal Eosinophils/100 WBC (Bld) 2.9 % Normal 0.9-7.0 [facility] Comment on above: Performed By: #### C BC ####[facility] Daihzsnpss84[address] [place], [place] [address]Dr. Farhat Leal Erythrocyte distribution width (RBC) [Ratio] 16.0 % Critically high 11.0-15.0 [facility] Comment on above: Performed By: #### C BC ####[facility] Oexvnayqfn2020[address] [place], [place] [address]Dr. Farhat Leal Hematocrit (Bld) [Volume fraction] 35.7 % Critically low 42.0-54.0 [facility] Comment on above: Performed By: #### C BC ####[facility] Kxyodzhuzm[address] [place], [place] [address]Dr. Farhat Leal Hemoglobin (Bld) [Mass/Vol] 11.9 g/dL Critically low 14.0-18.0 [facility] Comment on above: Performed By: #### C BC ####[facility] Zjxkrrlgwl[address] [place], [place] [address]Dr. Farhat Leal IG # 0.03 10e3/ul Normal 0.00-0.03 [facility] Comment on above: Performed By: #### C BC ####[facility] Zzrclgerqs7[address] [place] [id number]. Madelynlorri Leal IG % 0.5 % Normal 0.0-0.5 [facility] Comment on above: Performed By: #### C BC ####[facility] E[address]zssskbz3[address] [place] [id number]. Farhat Elvis LYMPH # 2.4 103/ul Normal 1.2-3.8 [facility] Comment on above: Performed By: #### C BC ####[facility] Tsuucbijws[address] [place] [id number]. Madelynlorri Leal Lymphocytes/100 WBC (Bld) 37.8 % Normal 20.5-60.0 [facility] Comment on above: Performed By: #### C BC ####[facility] [address]zvp[address] [place] [address]Dr. Farhat Leal MANUAL DIFF REQ NO Normal [facility] Comment on above: Performed By: #### C BC ####[facility] Qeonorwtmd5302 [place] [id number]. Farhat Leal MCH (RBC) [Entitic mass] 30.4 pg Normal 25.9-34.0 [facility] Comment on above: Performed By: #### C BC ####[facility] Vtskvgtrtk30[address] [place] [id number]. Farhat Leal MCHC (RBC) [Mass/Vol] 33.3 g/dL Normal 29.9-35.2 [facility] Comment on above: Performed By: #### C BC ####[facility] Uzstqtfksy4734 [place] [id number]. Farhat Leal MCV (RBC) [Entitic vol] 91.1 fL Normal 80.0-94.0 [facility] Comment on above: Performed By: #### C BC ####[facility] Fxpvaurscb2066 [place] [id number]. Farhat Leal MONO # 0.7 103/ul Normal 0.3-0.8 [facility] Comment on above: Performed By: #### C BC ####[facility] Jnpfqaftlp3108 [place] [id number]. Farhat Leal Monocytes/100 WBC (Bld) 11.1 % Normal 1.7-12.0 [facility] Comment on above: Performed By: #### C BC ####[facility] Ejfshlaeny4341 [place] [id number]. Farhat eLal NEUT # 2.9 103/ul Normal 1.4-6.5 [facility] Comment on above: Performed By: #### C BC ####[facility] Wxlgokgheb8480 [place] [id number]. Farhat Leal Neutrophils/100 WBC (Bld) 47.2 % Normal 43.0-75.0 [facility] Comment on above: Performed By: #### C BC ####[facility] Kzttqvrryk8[address] [place] [address]Dr. Farhat Leal Platelet mean volume (Bld) [Entitic vol] 11.0 fL Normal 9.5-13.5 [facility] Comment on above: Performed By: #### C BC ####[facility] Lfbhwodrqy7137 [place] [id number]. Farhat Leal PLT 191 103/ul Normal 150-450 [facility] Comment on above: Performed By: #### C BC ####[facility] Usoeuujlwg5741 [place] [phone]. Farhat Leal RBC 3.92 106/ul Critically low 4.70-6.10 [facility] Comment on above: Performed By: #### C BC ####[facility] [address]kbdxj[address] [place], [place] [address]Dr. Farhat Leal WBC 6.2 103/ul Normal 4.0-11.0 [facility] Comment on above: Performed By: #### C BC ####[facility] Nzhckmszgw9[address] [place] [address]Dr. Farhat Leal MAGNESIUMon 05-08-2022 Magnesium [Mass/Vol] 1.9 mg/dL Normal 1.8-2.4 [facility] Comment on above: Performed By: #### P HOS, MG ####[facility] Feimwyxmss[address] [place] [address]Dr. Farhat Leal PHOSPHORUSon 05-08-2022 Phosphate [Mass/Vol] 4.5 mg/dL Normal 2.6-4.7 [facility] Comment on above: Performed By: #### P HOS, MG ####[facility] Tarzpktstg[address] [place] [address]Dr. Farhat Leal PROF 14(COMP METB)on 023 Albumin [Mass/Vol] 2.9 g/dL Critically low 3.4-5.0 [facility] Comment on above: Performed By: #### C MP ####[facility] Zqgbypcmxa[address] [place], [place] [address]Dr. Farhat Leal Albumin/Globulin [Mass ratio] 0.9 {ratio} Normal [facility] Comment on above: Performed By: #### C MP ####[facility] Nrdigmjumd6[address] [place], [place] [address]Dr. Farhat Leal ALP [Catalytic activity/Vol] 70 U/L Normal 46-116 [facility] Comment on above: Performed By: #### C MP ####[facility] Ltxuvxjmde[address] [place], [place] [address]Dr. Farhat Leal ALT [Catalytic activity/Vol] 13 U/L Critically low 16-63 [facility] Comment on above: Performed By: #### C MP ####[facility] Lrfetrkdke9[address] [place] [address]Dr. Farhat Leal Anion gap [Moles/Vol] 14.6 mmol/L Normal [facility] Comment on above: Performed By: #### C MP ####[facility] Nfgjmnxnoh59[address] [place] [address]Dr. Farhat Leal AST [Catalytic activity/Vol] 17 U/L Normal 15-37 [facility] Comment on above: Performed By: #### C MP ####[facility] Frcfaqdtzy9276 [place] [address]Dr. Farhat Leal Bilirubin [Mass/Vol] 0.8 mg/dL Normal 0.2-1.0 [facility] Comment on above: Performed By: #### C MP ####[facility] Soshuxbumi[address] [place] [address]Dr. Farhat Leal Calcium [Mass/Vol] 8.9 mg/dL Normal 8.5-10.1 [facility] Comment on above: Performed By: #### C MP ####[facility] Mjreqwqnbv00[address] [place] [address]Dr. Farhat Leal Chloride [Moles/Vol] 102 mmol/L Normal 98-107 [facility] Comment on above: Performed By: #### C MP ####[facility] Zkshlnlzyq7380 [place] [address]Dr. Farhat Leal CO2 [Moles/Vol] 22.9 mmol/L Normal 21.0-32.0 [facility] Comment on above: Performed By: #### C MP ####[facility] Tbwwrrjpvs4866 [place] [address]Dr. Farhat Leal Creatinine [Mass/Vol] 1.20 mg/dL Normal 0.70-1.30 [facility] Comment on above: Performed By: #### C MP ####[facility] Nzkqyxhfjd5[address] [place] [address]Dr. Farhat Leal EGFR-AF ICELANDIC >60 Normal >=60 [facility] Comment on above: Performed By: #### C MP ####[facility] Lgpfnpxuzb1436 [place] [address]Dr. Farhat Elvis EGFR-NON AF ICELANDIC 59 mL/min/1.73m2 Critically low >=60 [facility] Comment on above: Performed By: #### C MP ####[facility] Aljpyjhzla8596 [place] [id number]. Farhat Elvis Globulin (S) [Mass/Vol] 3.1 g/dL Normal [facility] Comment on above: Performed By: #### C MP ####[facility] Chifvveiii[address] [place] [address]Dr. Madelynlorri Elvis Glucose [Mass/Vol] 447 mg/dL Critically high 74-106 [facility] Comment on above: Performed By: #### C MP ####[facility] Bahjxwmzdr5842 [place] [id number]. Farhat Leal Potassium [Moles/Vol] 4.5 mmol/L Normal 3.5-5.1 [facility] Comment on above: Performed By: #### C MP ####[facility] Jiewsdqeyt2121 [place] [address]Dr. Farhat Elvis Protein [Mass/Vol] 6.0 g/dL Critically low 6.4-8.2 [facility] Comment on above: Performed By: #### C MP ####[facility] Aiasvyqbcx5086 [place] [address]Dr. Farhat Elvis Sodium [Moles/Vol] 135 mmol/L Critically low 136-145 [facility] Comment on above: Performed By: #### C MP ####[facility] Lrqgrpvnac[address] [place], [place] [address]Dr. Madelynlorri Leal Urea nitrogen [Mass/Vol] 52.0 mg/dL Critically high 7.0-18.0 [facility] Comment on above: Performed By: #### C MP ####[facility] Qvnwiggqlm6635[address] [place], [place] [address]Dr. Farhat Elvis Urea nitrogen/Creatinine [Mass ratio] 43.3 mg/mg Normal [facility] Comment on above: Performed By: #### C MP ####[facility] Akzxtdwyeo6[address] [place], [place] [address]Dr. Farhat Leal PROTIMEon 05-06-2022 INR Coag (PPP) [Relative time] 2.25 {INR} Normal [facility] Comment on above: Performed By: #### P T ####[facility] Ulzdhvbkah[address] [place], [place] [address]Dr. Farhat Leal INR GUIDELINES SEE BELOW Normal [facility] Comment on above: Result Comment: MALINA RED INR: 2.0 - 3.0 CONDITIONS NOT LISTED BELOW 2.5 - 3.5 FOR PROSTHETIC HEART VALVE REPLACEMENT 2.5 - 3.5 RECURRENT THROMBOSIS Performed By: #### P T ####[facility] Zlsntiwlam9313[address] [place], [place] [address]Dr. Madelynlorri Leal PT Coag (PPP) [Time] 22.8 s Critically high 9.0-11.6 [facility] Comment on above: Performed By: #### P T ####[facility] Vubsvrttft[address] [place], [place] [address]Dr. Farhat Elvis FK506 (TACROLIMUS) WHOLE BLO ODon 05-04-2022 Tacrolimus (FK506), Blood 10.4 ng/mL Normal 2.0-20.0 [facility] Comment on above: Result Comment: Trou gh (immediately following transplant) 15.0 . Trough (steady state, 2 weeks or more after transplant): 3.0 - 8.0 . Performed by LC-MS/MS technology. Performed By: #### F K506T ####[facility] Gzkuaxdgwn[address] [place], [place] [address]Dr. Farhat Elvis CBC AUTO DIFFon 05-01-2022 BASO # 0.1 103/ul Normal 0.0-0.1 [facility] Comment on above: Performed By: #### C BC ####[facility] Yisnqfduuk[address] [place], [place] [address]Dr. Madelynlorri Leal Basophils/100 WBC (Bld) 0.7 % Normal 0.2-2.0 [facility] Comment on above: Performed By: #### C BC ####[facility] Yrihxznbvu5[address] [place], [place] [address]Dr. Farhat Leal EO # 0.2 103/ul Normal 0.0-0.7 [facility] Comment on above: Performed By: #### C BC ####[facility] Wdazjljqhb[address] [place], [place] [address]Dr. Farhat Leal Eosinophils/100 WBC (Bld) 3.2 % Normal 0.9-7.0 [facility] Comment on above: Performed By: #### C BC ####[facility] Wnkflgphig547[address] [place], [place] [address]Dr. Farhat Leal Erythrocyte distribution width (RBC) [Ratio] 16.4 % Critically high 11.0-15.0 [facility] Comment on above: Performed By: #### C BC ####[facility] Aowdfoahnc4[address] [place] [address]Dr. Farhat Leal Hematocrit (Bld) [Volume fraction] 35.1 % Critically low 42.0-54.0 [facility] Comment on above: Performed By: #### C BC ####[facility] Dvisswyxng6385 [place] [address]Dr. Farhat Leal Hemoglobin (Bld) [Mass/Vol] 11.6 g/dL Critically low 14.0-18.0 [facility] Comment on above: Performed By: #### C BC ####[facility] Mgpinvcwmw1923[address] [place], [place] [address]Dr. Madelynlorri Leal IG # 0.03 10e3/ul Normal 0.00-0.03 [facility] Comment on above: Performed By: #### C BC ####[facility] Efuztlvvol475[address] [place], [place] [address]Dr. Farhat Leal IG % 0.4 % Normal 0.0-0.5 [facility] Comment on above: Performed By: #### C BC ####[facility] Kfybqrpeia[address] [place], [place] [address]Dr. Madelynlorri Leal LYMPH # 2.4 103/ul Normal 1.2-3.8 [facility] Comment on above: Performed By: #### C BC ####[facility] Ukjorqxrvc[address] [place], [place] [address]Dr. Farhat Leal Lymphocytes/100 WBC (Bld) 35.1 % Normal 20.5-60.0 [facility] Comment on above: Performed By: #### C BC ####[facility] Blydyketeb7[address] [place], [place] [address]Dr. Farhat Leal MANUAL DIFF REQ NO Normal [facility] Comment on above: Performed By: #### C BC ####[facility] Agvqjwtbrv120[address] [place], [place] [address]Dr. Farhat Leal MCH (RBC) [Entitic mass] 29.4 pg Normal 25.9-34.0 [facility] Comment on above: Performed By: #### C BC ####[facility] Eoawytthho[address] [place] [id number]. Farhat Elvis MCHC (RBC) [Mass/Vol] 33.0 g/dL Normal 29.9-35.2 [facility] Comment on above: Performed By: #### C BC ####[facility] Yqkzwfydzz7184 [place] [id number]. Farhat Leal MCV (RBC) [Entitic vol] 88.9 fL Normal 80.0-94.0 [facility] Comment on above: Performed By: #### C BC ####[facility] Ymrgimgnez3445 [place] [id number]. Farhat Leal MONO # 0.7 103/ul Normal 0.3-0.8 [facility] Comment on above: Performed By: #### C BC ####[facility] Dyyfxcyxze[address] [place], [place] [address]Dr. Farhat Leal Monocytes/100 WBC (Bld) 9.6 % Normal 1.7-12.0 The [facility] Comment on above: Performed By: #### C BC ####[facility] Y[address] [place], [place] [address]Dr. Farhat Leal NEUT # 3.5 103/ul Normal 1.4-6.5 The [facility] Comment on above: Performed By: #### C BC ####[facility] Ahjyzazxhe[address] [place], [place] [address]Dr. Farhat Leal Neutrophils/100 WBC (Bld) 51.0 % Normal 43.0-75.0 The [facility] Comment on above: Performed By: #### C BC ####[facility] Kvfgpeiekh[address] [place], [place] [address]Dr. Farhat Leal Platelet mean volume (Bld) [Entitic vol] 10.3 fL Normal 9.5-13.5 The [facility] Comment on above: Performed By: #### C BC ####[facility] Vzcptcfaxb[address] [place], [place] [id number]. Farhat Leal PLT 184 103/ul Normal 150-450 The [facility] Comment on above: Performed By: #### C BC ####[facility] N[address]xcuhcfj14[address] [place] [id number]. Farhat Leal RBC 3.95 106/ul Critically low 4.70-6.10 [facility] Comment on above: Performed By: #### C BC ####[facility] Fgrtseflsm1856 [place] [id number]. Farhat Leal WBC 7.0 103/ul Normal 4.0-11.0 [facility] Comment on above: Performed By: #### C BC ####[facility] Araqrzdtiv[address] [place] [address]Dr. Farhat Leal PROF 14(COMP METB)on 023 Albumin [Mass/Vol] 2.6 g/dL Critically low 3.4-5.0 [facility] Comment on above: Performed By: #### C MP ####[facility] Aaqumdczlm39[address] [place] [address]Dr. Farhat Leal Albumin/Globulin [Mass ratio] 0.9 {ratio} Normal [facility] Comment on above: Performed By: #### C MP ####[facility] Drfjffyyvt86[address] [place] [address]Dr. Farhat Leal ALP [Catalytic activity/Vol] 53 U/L Normal 46-116 [facility] Comment on above: Performed By: #### C MP ####[facility] Wohpcmgbtx8[address] [place] [address]Dr. Farhat Leal ALT [Catalytic activity/Vol] 17 U/L Normal 16-63 [facility] Comment on above: Performed By: #### C MP ####[facility] Vnlwrhmvvq6635 [place] [address]Dr. Farhat Leal Anion gap [Moles/Vol] 10.0 mmol/L Normal [facility] Comment on above: Performed By: #### C MP ####[facility] Wptfdhritq6452 [place] [address]Dr. Farhat Leal AST [Catalytic activity/Vol] 19 U/L Normal 15-37 [facility] Comment on above: Performed By: #### C MP ####[facility] Yhthukajml7454 [place] [id number]. Farhat Leal Bilirubin [Mass/Vol] 0.5 mg/dL Normal 0.2-1.0 The [facility] Comment on above: Performed By: #### C MP ####[facility] Hawnsqqfmz8093 [place] [id number]. Faraht Leal Calcium [Mass/Vol] 8.4 mg/dL Critically low 8.5-10.1 [facility] Comment on above: Performed By: #### C MP ####[facility] Jolzxhdvmx5840 [place] [id number]. Farhat Leal Chloride [Moles/Vol] 108 mmol/L Critically high 98-107 [facility] Comment on above: Performed By: #### C MP ####[facility] Lsxpspmfdg8434[address] [place], [place] [address]Dr. Farhat Leal CO2 [Moles/Vol] 26.9 mmol/L Normal 21.0-32.0 The [facility] Comment on above: Performed By: #### C MP ####[facility] Ikxrryjrrz[address] [place], [place] [address]Dr. Farhat Leal Creatinine [Mass/Vol] 1.20 mg/dL Normal 0.70-1.30 [facility] Comment on above: Performed By: #### C MP ####[facility] Pjvpyprgcm[address] [place], [place] [address]Dr. Farhat Elvis EGFR-AF ICELANDIC >60 Normal >=60 The [facility] Comment on above: Performed By: #### C MP ####[facility] Plgljdmvtp[address] [place], [place] [address]Dr. Farhat Elvis EGFR-NON AF ICELANDIC 59 mL/min/1.73m2 Critically low >=60 The [facility] Comment on above: Performed By: #### C MP ####[facility] Ftjfvveneg[address] [place], [place] [address]Dr. Farhat Leal Globulin (S) [Mass/Vol] 3.0 g/dL Normal The [facility] Comment on above: Performed By: #### C MP ####[facility] Kphxwklftj33[address] [place] [address]Dr. Farhat Leal Glucose [Mass/Vol] 213 mg/dL Critically high 74-106 T [facility] Comment on above: Performed By: #### C MP ####[facility] Dmvoxuqadm4941 [place] [address]Dr. Farhat Leal Potassium [Moles/Vol] 3.9 mmol/L Normal 3.5-5.1 [facility] Comment on above: Performed By: #### C MP ####[facility] Uuokfujeax6044 [place] [address]Dr. Farhat Leal Protein [Mass/Vol] 5.6 g/dL Critically low 6.4-8.2 Th [facility] Comment on above: Performed By: #### C MP ####[facility] Wewwmdkwed[address] [place], [place] [address]Dr. Farhat Leal Sodium [Moles/Vol] 141 mmol/L Normal 136-145 [facility] Comment on above: Performed By: #### C MP ####[facility] Xxvwpacpey456[address] [place], [place] [address]Dr. Farhat Leal Urea nitrogen [Mass/Vol] 61.0 mg/dL Critically high 7.0-18.0 [facility] Comment on above: Performed By: #### C MP ####[facility] Bdtuontwel[address] [place], [place] [address]Dr. Farhat Leal Urea nitrogen/Creatinine [Mass ratio] 50.8 mg/mg Normal [facility] Comment on above: Performed By: #### C MP ####[facility] Folvotzcck17[address] [place], [place] [address]Dr. Farhat Leal FK506 (TACROLIMUS) WHOLE BLO ODon 04-27-2022 Tacrolimus (FK506), Blood 16.5 ng/mL Normal 2.0-20.0 [facility] Comment on above: Result Comment: Trou gh (immediately following transplant) 15.0 . Trough (steady state, 2 weeks or more after transplant): 3.0 - 8.0 . Performed by LC-MS/MS technology. Performed By: #### F K506T ####[facility] Pultkfngsi[address] [place] [address]Dr. Farhat Leal CBC AUTO DIFFon 04-24-2022 BASO # 0.0 103/ul Normal 0.0-0.1 The [facility] Comment on above: Performed By: #### C BC ####[facility] Ietdqplgup7599[address] [place], [place] [address]Dr. Farhat Leal Basophils/100 WBC (Bld) 0.5 % Normal 0.2-2.0 The [facility] Comment on above: Performed By: #### C BC ####[facility] Qrdqdocqcs4320[address] [place], [place] [address]Dr. Farhat Leal EO # 0.2 103/ul Normal 0.0-0.7 The [facility] Comment on above: Performed By: #### C BC ####[facility] Dtieohdlqz6612[address] [place], [place] [address]Dr. Farhat Elvis Eosinophils/100 WBC (Bld) 3.1 % Normal 0.9-7.0 The [facility] Comment on above: Performed By: #### C BC ####[facility] Aqeqyojegr[address] [place], [place] [address]Dr. Farhat Leal Erythrocyte distribution width (RBC) [Ratio] 16.3 % Critically high 11.0-15.0 [facility] Comment on above: Performed By: #### C BC ####[facility] Veqpapskpf7[address] [place], [place] [address]Dr. Farhat Leal Hematocrit (Bld) [Volume fraction] 34.0 % Critically low 42.0-54.0 The [facility] Comment on above: Performed By: #### C BC ####[facility] Xusqqjfdyy[address] [place], [place] [address]Dr. Farhat Leal Hemoglobin (Bld) [Mass/Vol] 11.6 g/dL Critically low 14.0-18.0 The [facility] Comment on above: Performed By: #### C BC ####[facility] Opombilxkw[address] [place], [place] [address]Dr. Farhat Leal IG # 0.02 10e3/ul Normal 0.00-0.03 The [facility] Comment on above: Performed By: #### C BC ####[facility] Yicadbebhj8367 [place] [id number]. Farhat Leal IG % 0.4 % Normal 0.0-0.5 [facility] Comment on above: Performed By: #### C BC ####[facility] Mhecmzcgnp8984 [place] [id number]. Farhat Leal LYMPH # 2.2 103/ul Normal 1.2-3.8 The [facility] Comment on above: Performed By: #### C BC ####[facility] Lfcoqiyuxt0620 [place] [id number]. Farhat Leal Lymphocytes/100 WBC (Bld) 38.8 % Normal 20.5-60.0 [facility] Comment on above: Performed By: #### C BC ####[facility] Vywqjkqqvv25[address] [place] [address]Dr. Farhat Leal MANUAL DIFF REQ NO Normal [facility] Comment on above: Performed By: #### C BC ####[facility] Grbrwwwpzs4174 [place] [id number]. Farhat Leal MCH (RBC) [Entitic mass] 30.1 pg Normal 25.9-34.0 [facility] Comment on above: Performed By: #### C BC ####[facility] Bblbtdxxls2220 [place] [id number]. Farhat Leal MCHC (RBC) [Mass/Vol] 34.1 g/dL Normal 29.9-35.2 The [facility] Comment on above: Performed By: #### C BC ####[facility] Wthmjqntym4262 [place] [id number]. Farhat Leal MCV (RBC) [Entitic vol] 88.1 fL Normal 80.0-94.0 The [facility] Comment on above: Performed By: #### C BC ####[facility] Adchnuxdim0955 [place] [id number]. Farhat Elvis MONO # 0.6 103/ul Normal 0.3-0.8 The [facility] Comment on above: Performed By: #### C BC ####[facility] Mbutxgchey0205 [place] [id number]. Farhat Leal Monocytes/100 WBC (Bld) 10.8 % Normal 1.7-12.0 The [facility] Comment on above: Performed By: #### C BC ####[facility] Ulcijyrsnz4783 [place] [id number]. Farhat Leal NEUT # 2.6 103/ul Normal 1.4-6.5 The [facility] Comment on above: Performed By: #### C BC ####[facility] Fvidsowyiz9034 [place] [id number]. Farhat Leal Neutrophils/100 WBC (Bld) 46.4 % Normal 43.0-75.0 [facility] Comment on above: Performed By: #### C BC ####[facility] Qwcwfmjjxb8469 [place] [id number]. Farhat Leal Platelet mean volume (Bld) [Entitic vol] 10.9 fL Normal 9.5-13.5 The [facility] Comment on above: Performed By: #### C BC ####[facility] Zgnnkalsde6454 [place] [id number]. Farhat Leal PLT 159 103/ul Normal 150-450 The [facility] Comment on above: Performed By: #### C BC ####[facility] Wqkuiegldd6141 [place] [id number]. Farhat Leal RBC 3.86 106/ul Critically low 4.70-6.10 [facility] Comment on above: Performed By: #### C BC ####[facility] Yuavcurgit[address] [place], [place] [address]Dr. Farhat Leal WBC 5.6 103/ul Normal 4.0-11.0 The [facility] Comment on above: Performed By: #### C BC ####[facility] Zhzmsgpiac5126 [place] [id number]. Farhat Leal PROTIMEon 04-24-2022 INR Coag (PPP) [Relative time] 3.23 {INR} Normal The [facility] Comment on above: Performed By: #### P T ####[facility] Krbxjykrtw[address] [place], [place] [address]DrSkylar Leal INR GUIDELINES SEE BELOW Normal The [facility] Comment on above: Result Comment: MALINA RED INR: 2.0 - 3.0 CONDITIONS NOT LISTED BELOW 2.5 - 3.5 FOR PROSTHETIC HEART VALVE REPLACEMENT 2.5 - 3.5 RECURRENT THROMBOSIS Performed By: #### P T ####[facility] Tvhpcwirxn169[address] [place], [place] [address]Dr. Farhat Leal PT Coag (PPP) [Time] 32.0 s Critically high 9.0-11.6 The [facility] Comment on above: Performed By: #### P T ####[facility] Zbfnnosdwm522[address] [place], [place] [address]Dr. Farhat Leal FK506 (TACROLIMUS) WHOLE BLO ODon 04-20-2022 Tacrolimus (FK506), Blood 13.9 ng/mL Normal 2.0-20.0 [facility] Comment on above: Result Comment: Trou gh (immediately following transplant) 15.0 . Trough (steady state, 2 weeks or more after transplant): 3.0 - 8.0 . Performed by LC-MS/MS technology. Performed By: #### F K506T ####[facility] Sfubllgzja[address] [place], [place] [address]Dr. Farhat Leal CBC AUTO DIFFon 04-17-2022 BASO # 0.0 103/ul Normal 0.0-0.1 The [facility] Comment on above: Performed By: #### C BC ####[facility] Uovhxcknmg4[address] [place], [place] [address]DrSkylar Leal Basophils/100 WBC (Bld) 0.4 % Normal 0.2-2.0 The [facility] Comment on above: Performed By: #### C BC ####[facility] Cefyhncpbl758[address] [place], [place] [address]Dr. Farhat Leal EO # 0.2 103/ul Normal 0.0-0.7 The [facility] Comment on above: Performed By: #### C BC ####[facility] Ddenzxgnjf5904[address] [place], [place] [address]DrSkylar Leal Eosinophils/100 WBC (Bld) 2.8 % Normal 0.9-7.0 The [facility] Comment on above: Performed By: #### C BC ####[facility] Anufaarxgl4498 [place] [address]Dr. Farhat Leal Erythrocyte distribution width (RBC) [Ratio] 16.1 % Critically high 11.0-15.0 The [facility] Comment on above: Performed By: #### C BC ####[facility] Koekwipxyv8774 [place] [address]Dr. Farhat Leal Hematocrit (Bld) [Volume fraction] 35.7 % Critically low 42.0-54.0 The [facility] Comment on above: Performed By: #### C BC ####[facility] Lcxzhjwmgl[address]14[address] [place], [place] [address]Dr. Farhat Leal Hemoglobin (Bld) [Mass/Vol] 12.2 g/dL Critically low 14.0-18.0 The [facility] Comment on above: Performed By: #### C BC ####[facility] Rvqpywmaaq101[address] [place], [place] [address]Dr. Farhat Leal IG # 0.03 10e3/ul Normal 0.00-0.03 The [facility] Comment on above: Performed By: #### C BC ####[facility] Tjmlwuhyji5726[address] [place], [place] [address]Dr. Farhat Leal IG % 0.4 % Normal 0.0-0.5 The [facility] Comment on above: Performed By: #### C BC ####[facility] Oaqhljotws996[address] [place], [place] [address]Dr. Farhat Leal LYMPH # 2.4 103/ul Normal 1.2-3.8 The [facility] Comment on above: Performed By: #### C BC ####[facility] Ulzrgwrnno13[address] [place], [place] [address]Dr. Farhat Leal Lymphocytes/100 WBC (Bld) 36.1 % Normal 20.5-60.0 The [facility] Comment on above: Performed By: #### C BC ####[facility] Fbdgybffwk0316[address] [place], [place] [address]Dr. Farhat Leal MANUAL DIFF REQ NO Normal [facility] Comment on above: Performed By: #### C BC ####[facility] Eanmwvvrnq6596 [place] [address]Dr. Farhat Elvis MCH (RBC) [Entitic mass] 30.3 pg Normal 25.9-34.0 The [facility] Comment on above: Performed By: #### C BC ####[facility] Cjtobnipps7515[address] [place], [place] [address]Dr. Farhat Elvis MCHC (RBC) [Mass/Vol] 34.2 g/dL Normal 29.9-35.2 The [facility] Comment on above: Performed By: #### C BC ####[facility] Mnxecdmknx0129[address] [place], [place] [address]Dr. Farhat Leal MCV (RBC) [Entitic vol] 88.6 fL Normal 80.0-94.0 The [facility] Comment on above: Performed By: #### C BC ####[facility] Qcqrphmypq223[address] [place], [place] [address]Dr. Farhat Leal MONO # 0.7 103/ul Normal 0.3-0.8 The [facility] Comment on above: Performed By: #### C BC ####[facility] Vkpreolksh4916[address] [place], [place] [address]Dr. Farhat Leal Monocytes/100 WBC (Bld) 10.1 % Normal 1.7-12.0 The [facility] Comment on above: Performed By: #### C BC ####[facility] Nqpxtegdip[address] [place], [place] [address]DrSkylar Leal NEUT # 3.4 103/ul Normal 1.4-6.5 The [facility] Comment on above: Performed By: #### C BC ####[facility] Cchdweoeca[address] [place], [place] [address]DrSkylar Leal Neutrophils/100 WBC (Bld) 50.2 % Normal 43.0-75.0 The [facility] Comment on above: Performed By: #### C BC ####[facility] Imisscsoza449[address] [place], [place] [address]Dr. Farhat Leal Platelet mean volume (Bld) [Entitic vol] 11.8 fL Normal 9.5-13.5 [facility] Comment on above: Performed By: #### C BC ####[facility] Hgnwjhhiyr1757 [place] [address]Dr. Farhat Leal PLT 193 103/ul Normal 150-450 [facility] Comment on above: Performed By: #### C BC ####[facility] Bnwxmcsrbv6143 [place] [address]Dr. Farhat Leal RBC 4.03 106/ul Critically low 4.70-6.10 [facility] Comment on above: Performed By: #### C BC ####[facility] Raelphvont[address] [place] [address]Dr. Farhat Leal WBC 6.8 103/ul Normal 4.0-11.0 [facility] Comment on above: Performed By: #### C BC ####[facility] Ldkhufmgdm3357 [place] [address]DrSkylar Leal PROF 14(COMP METB)on 023 Albumin [Mass/Vol] 2.9 g/dL Critically low 3.4-5.0 [facility] Comment on above: Performed By: #### C MP ####[facility] Olhcaoefwm7394 [place] [address]DrSkylar Leal Albumin/Globulin [Mass ratio] 0.9 {ratio} Normal [facility] Comment on above: Performed By: #### C MP ####[facility] Rkhsawshuu3119 [place] [address]DrSkylar Leal ALP [Catalytic activity/Vol] 67 U/L Normal 46-116 [facility] Comment on above: Performed By: #### C MP ####[facility] Pckquhikav3560 [place] [address]DrSkylar Leal ALT [Catalytic activity/Vol] 15 U/L Critically low 16-63 [facility] Comment on above: Performed By: #### C MP ####[facility] Pnzfmkzxco0108 [place] [address]DrSkylar Leal Anion gap [Moles/Vol] 10.8 mmol/L Normal [facility] Comment on above: Performed By: #### C MP ####[facility] Ubzkmljurt[address] [place], [place] [address]Dr. Farhat Leal AST [Catalytic activity/Vol] 23 U/L Normal 15-37 [facility] Comment on above: Performed By: #### C MP ####[facility] Jihetimbzh149[address] [place], [place] [address]Dr. Farhat Leal Bilirubin [Mass/Vol] 0.6 mg/dL Normal 0.2-1.0 [facility] Comment on above: Performed By: #### C MP ####[facility] Jeqwlfqxcl575[address] [place], [place] [address]Dr. Farhat Elvis Calcium [Mass/Vol] 8.7 mg/dL Normal 8.5-10.1 [facility] Comment on above: Performed By: #### C MP ####[facility] Sxpcnwcnez1344[address] [place], [place] [address]Dr. Farhat Elvis Chloride [Moles/Vol] 105 mmol/L Normal 98-107 [facility] Comment on above: Performed By: #### C MP ####[facility] Waaaszhjls347[address] [place], [place] [address]Dr. Farhat Elvis CO2 [Moles/Vol] 29.5 mmol/L Normal 21.0-32.0 The [facility] Comment on above: Performed By: #### C MP ####[facility] Vfyflmtjve230[address] [place], [place] [address]Dr. Farhat Elvis Creatinine [Mass/Vol] 1.37 mg/dL Critically high 0.70-1.30 [facility] Comment on above: Performed By: #### C MP ####[facility] Xcgtmazlvc2564[address] [place], [place] [address]Dr. Madelynlorri Elvis EGFR-AF ICELANDIC >60 Normal >=60 The [facility] Comment on above: Performed By: #### C MP ####[facility] Shxdbruiiu8[address] [place], [place] [address]Dr. Farhat Leal EGFR-NON AF ICELANDIC 50 mL/min/1.73m2 Critically low >=60 [facility] Comment on above: Performed By: #### C MP ####[facility] Wwpwsxpbmf5507 [place] [address]Dr. Farhat Leal Globulin (S) [Mass/Vol] 3.1 g/dL Normal [facility] Comment on above: Performed By: #### C MP ####[facility] Glgtolhuoz7556 [place] [address]Dr. Farhat Leal Glucose [Mass/Vol] 203 mg/dL Critically high 74-106 [facility] Comment on above: Performed By: #### C MP ####[facility] Nrzstahxnl8869 [place] [address]Dr. Farhat Leal Potassium [Moles/Vol] 4.3 mmol/L Normal 3.5-5.1 [facility] Comment on above: Performed By: #### C MP ####[facility] Sldqzyrlxy[address] [place], [place] [address]Dr. Farhat Leal Protein [Mass/Vol] 6.0 g/dL Critically low 6.4-8.2 Th [facility] Comment on above: Performed By: #### C MP ####[facility] Wcjthgbvvk[address] [place], [place] [address]Dr. Farhat Leal Sodium [Moles/Vol] 141 mmol/L Normal 136-145 [facility] Comment on above: Performed By: #### C MP ####[facility] Kduyrtcugn0132 [place] [address]Dr. Farhat Leal Urea nitrogen [Mass/Vol] 65.0 mg/dL Critically high 7.0-18.0 [facility] Comment on above: Performed By: #### C MP ####[facility] Zbfukymtht04[address] [place], [place] [address]Dr. Farhat Leal Urea nitrogen/Creatinine [Mass ratio] 47.4 mg/mg Normal [facility] Comment on above: Performed By: #### C MP ####[facility] Uwkggtscfq[address] [place], [place] [address]Dr. Farhat Leal PROTIMEon 04-15-2022 INR Coag (PPP) [Relative time] 3.88 {INR} Normal [facility] Comment on above: Performed By: #### P T ####[facility] Rpeghcnymd2479 [place], [place] [address]Hh. Farhat Leal INR GUIDELINES SEE BELOW Normal [facility] Comment on above: Result Comment: MALINA RED INR: 2.0 - 3.0 CONDITIONS NOT LISTED BELOW 2.5 - 3.5 FOR PROSTHETIC HEART VALVE REPLACEMENT 2.5 - 3.5 RECURRENT THROMBOSIS Performed By: #### P T ####[facility] [address] [place], [place] [address]Rk. Farhat Leal PT Coag (PPP) [Time] 38.1 s Critically high 9.0-11.6 [facility] Comment on above: Performed By: #### P T ####[facility] Acbzfllrte4[address] [place], [place] [address]Bz. Farhat Leal Glucose Glucometer (dC) [M ass/Vol]Ordered By: Sadia Aguilar on 04-14-2022 Glucose [Mass/Vol] 162 mg/dL [facility] Comment on above: Random Glucose Refer ence Range is dependent on time and content of last meal. Glucose of more than 200 mg/dL in a nonstressed, ambulatory subject supports the diagnosis of Diabetes Mellitus. Glucose Poct Glucometerson 0 04-14-2022 Commemt1 Glu2: Cleaned Meter Normal [facility] Comment on above: Result Comment: PERF ORMED BY: [facility] [address] [place] [address] PATHOLOGIST METAL CUT OFF SAW TENDER JOSE F ELLIOTT M.D. Performed By: #### G LULS #### Point of Care testing , Glucose [Mass/Vol] 162 mg/dL Normal [facility] Comment on above: Result Comment: [facility] Glucose Reference Range is dependent on time and content of last meal. Glucose of more than 200 mg/dL in a nonstressed, ambulatory subject supports the diagnosis of Diabetes Mellitus. Performed By: #### G LULS #### Point of Care testing , No Panel InformationOrdered By: Sadia Aguilar on 04-14-2022 Bedside Glucose Comment Glu2: cleaned meter [facility] MAGNESIUMon 04-13-2022 Magnesium [Mass/Vol] 1.7 mg/dL Critically low 1.8-2.4 [facility] Comment on above: Performed By: #### M Anais, PHOS ####[facility] [address] [place] [address]Dr. Mdaelynlorri Leal PHOSPHORUSon 04-13-2022 Phosphate [Mass/Vol] 4.8 mg/dL Critically high 2.6-4.7 [facility] Comment on above: Performed By: #### M Anais, PHOS ####[facility] [address] [place] [address]Dr. Farhat Lael PROTIMEon 04-13-2022 INR Coag (PPP) [Relative time] 3.16 {INR} Normal [facility] Comment on above: Performed By: #### P T ####[facility] [address] [place], [place] [address]DrSkylar Leal INR GUIDELINES SEE BELOW Normal [facility] Comment on above: Result Comment: MALINA RED INR: 2.0 - 3.0 CONDITIONS NOT LISTED BELOW 2.5 - 3.5 FOR PROSTHETIC HEART VALVE REPLACEMENT 2.5 - 3.5 RECURRENT THROMBOSIS Performed By: #### P T ####[facility] [address] [place], [place] [address]DrSkylar Leal PT Coag (PPP) [Time] 31.4 s Critically high 9.0-11.6 [facility] Comment on above: Performed By: #### P T ####[facility] [address]fc[address] [place] [address]Dr. Farhat Leal MAGNESIUMon 03-11-2022 Magnesium [Mass/Vol] 1.6 mg/dL Critically low 1.8-2.4 [facility] Comment on above: Performed By: #### M Anais, PHOS ####[facility] [address] [place], [place] [address]Dr. Farhat Leal PHOSPHORUSon 03-11-2022 Phosphate [Mass/Vol] 5.3 mg/dL Critically high 2.6-4.7 [facility] Comment on above: Performed By: #### M HENRI Manzo ####[facility] [address] [place], [place] [address]PoSkylar Gaston 02-26-2022 CNOV Office Visit (VASSMN ) ALEX ALMONTE ([id number]) 1945 M TRN Date Time Provider Department 02/26/22 3:00 PM HINA PETERSON During your visit today, we recorded the following information about you: Temperature Pulse Blood pressure 96.6 degrees 75/minute 88/75 Hina Peterson MD, MD 02/26/2022 4:31 PM [facility] [place] DEPARTMENT OF VASCULAR SURGERY OUTPATIENT VISIT DATE [...] his postop visit. He has been in senior care since then and has been recovering from his acute on chronic congestive heart failure. His wound has largely been healing without any issues and the maxwell and sutures were removed at the nursing facility. He comes here with a lateral wound eschar. He denies any fevers, chills, or any drainage. He is on anticoagulation. 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 [place] with lunch aspirin, enteric coated (ASPIRIN, ENTERIC COATED) 81 mg EC tablet Take 1 tablet by (more content not included)... Normal [facility] PROTIMEon 02-25-2022 INR Coag (PPP) [Relative time] 1.31 {INR} Normal [facility] Comment on above: Performed By: #### P T ####[facility] [address] [place] [address]Dr. Farhat Leal INR GUIDELINES SEE BELOW Normal [facility] Comment on above: Result Comment: MALINA RED INR: 2.0 - 3.0 CONDITIONS NOT LISTED BELOW 2.5 - 3.5 FOR PROSTHETIC HEART VALVE REPLACEMENT 2.5 - 3.5 RECURRENT THROMBOSIS Performed By: #### P T ####[facility] [address] [place], [place] [address]BtDr. Farhat Leal PT Coag (PPP) [Time] 13.7 s Critically high 9.0-11.6 [facility] Comment on above: Performed By: #### P T ####[facility] [address] [place], [place] [address]VgSkylar Leal DIAMANTERosalie 02-19-2022 CNPN Telephone (TXCTGL) ALEX ALMONTE ([id number]) 1945 M TRN Date Time Provider Department 02/19/22 AUGUSTA MEDRANO TXCTGL During your visit today, we recorded the following information about you: Augusta Medrano RN 02/19/2022 11:16 AM Signed Alex Almonte's nursing facility, [facility], called regarding elevated tacrolimus level (23.9). Spoke [...] by mouth daily with lunch. 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 DIABETES UNCOMPL ADULT-UNCONTRLLED [[id number]] 02/24/2002 KIDNEY TRANSPLANT STATUS [Z94.0] 09/07/2003 PROPHYLACTIC IMMUNOTHERAPY [Z29.8] 07/30/2006 ASSISTED STEROIDS [[id number]] 07/30/2006 VITAMIN D DEFICIENCY NOS [E55.9] 09/07/2008 [...] diabetes mellitus with diabetic peripher*11/29/2021 Atherosclerosis of menominee artery of extremity w*11/29/2021 Malnutrition of moderate degree (HCC) [E44.0] 12/01/2021 Dermatitis associated with moisture [L30.8] 12/04/2021 Encounter Status:Closed by AUGUSTA MEDRANO on 02/19/22 [facility] Sonya 02-18-2022 CONRADO Telephone (PODCCP) ALEX ALMONTE ([id number]) 1945 M TRN Date Time Provider Department 02/18/22 DEVON MOREIRA During your visit today, we recorded the following information about you: Yumiko Denise 02/18/2022 3:16 PM Signed Reason for call: Mr. Almonte would like to request a sooner appointment with Dr. Peterson than 04/13/2022. Contact Name (if not the patient) Alex's nurse Home and cell number(Ask for Alex's nurse) [phone] Diagnosis 4 mo f/u wound check Best regards, Yumiko Hidalgo Chirag 02/19/2022 12:22 PM Signed Alex Kate Ray appointments have been scheduled accordingly. Patient has been notified via telephone and appointment schedule sent via My Chart Gwen Chirag February 19, 2022 12:22 PM Allergies As [...] by mouth daily with lunch. 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 Normal [facility] Alek 02-05-2022 CNOV Office Visit (TXCTGL ) ALEX ALMONTE ([id number]) 1945 M TRN Date Time Provider Department 02/05/22 8:20 AM [facility] TXCTGL During your visit today, we recorded the following information about you: Temperature Pulse Blood pressure 96.7 degrees 79/minute 72/42 Asia Pike MD 02/05/2022 9:38 AM Signed [facility] [place] Transplant Follow up Portions of this note [...] and snacks patient declined. Indra scale at [facility]: 166.2 lbs per patient. Bed sore on coccyx causing discomfort. Being changed regularly at SNF- reported to be smaller around but still as deep. Patient not very up to date with medications. Patient brought paperwork from [employer] with all medications being received. Patient unsure if they have been drawing labs regularly. Last Tac from 01/19: 12.9 and K 5.9. In need of current labs. Lab orders will be sent with patient and follows as below: [facility]ney and Pancreas Transplant Standing Lab Orders [address] [place], [place] [address] February 05, 2022 Alex Almonte 1945 [id number] STANDARD TESTING: Diagnosis Codes: Z94.0 Kidney Transplant [...] AT YOUR LABORATORY FACILITY AND FAX TO [phone]. PLEASE CALL [phone]. Provider: Dr. Pike Current Outpatient Medications Medication [...] (PPP) [Relative time] 2.90 {INR} Normal [facility] Comment on above: Performed By: #### P T ####[facility] [address] [place] [address]DrSkylar Leal INR GUIDELINES SEE BELOW Normal [facility] Comment on above: Result Comment: MALINA RED INR: 2.0 - 3.0 CONDITIONS NOT LISTED BELOW 2.5 - 3.5 FOR PROSTHETIC HEART VALVE REPLACEMENT 2.5 - 3.5 RECURRENT THROMBOSIS Performed By: #### P T ####[facility] [address] [place] [id number]. Farhat Leal PT Coag (PPP) [Time] 29.2 s Critically high 9.0-11.6 [facility] Comment on above: Performed By: #### P T ####[facility] [address] [place] [id number]. Farhat Leal Prot/Creat Uron 02-05-2022 Protein/Creatinine (U) [Mass ratio] 0.10 mg/mg Normal <0.15 [facility] Comment on above: Order Comment: Speci men Type: URINE SPECIMENOrdering Facility: [facility] Address: [place] [address] Result Comment: Adul t Proteinuria Categories: <0.15 mg/mg is considered normal to mildly increased 0.15 - 0.50 mg/mg is considered moderately increased >0.50 mg/mg is considered severely increased KDIGO. (2013). KDIGO 2012 Clinical Practice Guideline for the Evaluation and Management of Chronic Kidney Disease. Official Journal of the International Society of Nephrology, 3(1), 1-150. Performed By: #### 2 890-2 ####[facility] [id number] [place] [address] [place] Protein/Creatinine (U) [Mass ratio]on 02-05-2022 Creatinine (U) [Mass/Vol] 86.9 mg/dL Normal 20.0-300.0 [facility] Comment on above: Order Comment: Speci men Type: URINE SPECIMENOrdering Facility: [facility] Address: [address] [place], [place] [address] Performed By: #### 2 890-2 ####[facility] [id number] [place] [address] [place] Creatinine (U) [Mass/Vol] 86.9 mg/dL 20.0 - 300.0 mg/dL [facility] Protein (U) [Mass/Vol] 9 mg/dL Normal 0-20 Cl [facility] Comment on above: Order Comment: Speci men Type: URINE SPECIMENOrdering Facility: [facility] Address: [address] [place], [place] [address] Performed By: #### 2 890-2 ####[facility] [id number] [place] [address] [place] Protein (U) [Mass/Vol] 9 mg/dL 0 - 20 mg/dL [facility] URINALYSIS, DIPSTICK ONLYon 02-05-2022 Bilirubin Ql (U) Negative Normal Negative [facility] Comment on above: Order Comment: Speci men Type: URINE SPECIMEN [facility] Address: [address] [place], [place] [address] Performed By: #### U A #### [facility] CLIA [id number] [address] [place] Clarity (Unsp spec) Clear Normal [facility] Comment on above: Order Comment: Speci men Type: URINE SPECIMEN [facility] Address: [address] [place] [address] Performed By: #### U A #### [facility] CLIA [id number] [address] [place] Color (U) Yellow Normal Yellow [facility] Comment on above: Order Comment: Speci men Type: URINE SPECIMEN [facility] Address: [address] [place], [place] [address] Performed By: #### U A #### [facility] CLIA [id number] [address] [place] [address] [place] Glucose Test strip (U) [Mass/Vol] 3+ Abnormal Trace, Negative [facility] Comment on above: Order Comment: Speci men Type: URINE SPECIMEN [facility] Address: [address] [place], [place] [address] Performed By: #### U A #### [facility] CLIA [id number] [address] [place] [address] [place] Hemoglobin Ql (U) Negative Normal Negative, Trace [facility] Comment on above: Order Comment: Speci men Type: URINE SPECIMEN [facility] Address: [address] [place], [place] [address] Performed By: #### U A #### [facility] CLIA [id number] [address] [place] Ketones Ql (U) Trace Normal Negative, Trace [facility] Comment on above: Order Comment: Speci men Type: URINE SPECIMEN [facility] Address: [address] [place], [place] [address] Performed By: #### U A #### [facility] CLIA [id number] [address] [place] Leukocyte esterase Test strip Ql (U) Negative Normal Negative, 25 Loraine/mL [facility] Comment on above: Order Comment: Speci men Type: URINE SPECIMEN [facility] Address: [address] [place] [address] Performed By: #### U A #### [facility] CLIA [id number] [address] [place] [address] [place] Nitrite Ql (U) Negative Normal Negative [facility] Comment on above: Order Comment: Speci men Type: URINE SPECIMEN [facility] Address: [address] [place], [place] [address] Performed By: #### U A #### [facility] CLIA [id number] [address] [place] [address] [place] pH (U) 5.5 [pH] Normal 5.0-8.0 [facility] Comment on above: Order Comment: Speci men Type: URINE SPECIMEN [facility] Address: [address] [place], [place] [address] Performed By: #### U A #### [facility] CLIA [id number] [address] [place] [address] [place] Protein (U) [Mass/Vol] Negative Normal Trace , Negative [facility] Comment on above: Order Comment: Speci men Type: URINE SPECIMEN [facility] Address: [address] [place], [place] [address] Performed By: #### U A #### [facility] CLIA [id number] [id number] [place] Specific gravity (U) [Rel density] 1.014 Normal 1.005-1.030 [facility] Comment on above: Order Comment: Speci men Type: URINE SPECIMEN [facility] Address: [address] [place] [address] Performed By: #### U A #### [facility] CLIA [id number] [address] [place] [address] [place] Urobilinogen Ql (U) 1+ Abnormal Negative [facility] Comment on above: Order Comment: Speci men Type: URINE SPECIMEN [facility] Address: [address] [place] [address] Performed By: #### U A #### [facility] CLIA [id number] [address] [place] [address] OF [place] FK506 (TACROLIMUS) WHOLE BLO ODon 01-29-2022 Tacrolimus (FK506), Blood 11.1 ng/mL Normal 2.0-20.0 [facility] Comment on above: Result Comment: Trou gh (immediately following transplant) 15.0 . Trough (steady state, 2 weeks or more after transplant): 3.0 - 8.0 . Performed by LC-MS/MS technology. Performed By: #### F K506T ####[facility] [address] [place], [place] [address]Dr. Farhat Leal PHOSPHORUSon 01-26-2022 Phosphate [Mass/Vol] 4.1 mg/dL Normal 2.6-4.7 [facility] Comment on above: Performed By: #### C CARA PHOS ####[facility] [address] [place], [place] [address]DrSkylar Leal PROF 14(COMP METB)on 022 Albumin [Mass/Vol] 2.1 g/dL Critically low 3.4-5.0 [facility] Comment on above: Performed By: #### C CARA PHOS ####[facility] [address] [place], [place] [address]DrSkylar Leal Albumin/Globulin [Mass ratio] 0.6 {ratio} Normal [facility] Comment on above: Performed By: #### C CARA, PHOS ####[facility] [address] [place] [address]Dr. Farhat Leal ALP [Catalytic activity/Vol] 89 U/L Normal 46-116 [facility] Comment on above: Performed By: #### C CARA, PHOS ####[facility] [address] [place], [place] [address]Dr. Farhta Leal ALT [Catalytic activity/Vol] 27 U/L Normal 16-63 [facility] Comment on above: Performed By: #### C CARA, PHOS ####[facility] [address] [place], [place] [address]Dr. Farhat Leal Anion gap [Moles/Vol] 12.3 mmol/L Normal [facility] Comment on above: Performed By: #### C CARA, PHOS ####[facility] [address] [place], [place] [address]Dr. Farhat Leal AST [Catalytic activity/Vol] 53 U/L Critically high 15-37 [facility] Comment on above: Performed By: #### C CARA, PHOS ####[facility] [address] [place], [place] [address]Dr. Farhat Leal Bilirubin [Mass/Vol] 0.6 mg/dL Normal 0.2-1.0 [facility] Comment on above: Performed By: #### C CARA, PHOS ####[facility] [address]es[address] [place], [place] [address]Dr. Farhat Leal Calcium [Mass/Vol] 8.0 mg/dL Critically low 8.5-10.1 [facility] Comment on above: Performed By: #### C CARA, PHOS ####[facility] [address] [place], [place] [address]Dr. Farhat Elvis Chloride [Moles/Vol] 97 mmol/L Critically low 98-107 [facility] Comment on above: Performed By: #### C CARA, PHOS ####[facility] [address] [place] [address]Dr. Farhat Leal CO2 [Moles/Vol] 26.6 mmol/L Normal 21.0-32.0 [facility] Comment on above: Performed By: #### C CARA, PHOS ####[facility] [address] [place] [address]Dr. Farhat Leal Creatinine [Mass/Vol] 1.03 mg/dL Normal 0.70-1.30 [facility] Comment on above: Performed By: #### C CARA, PHOS ####[facility] [address] [place] [address]Dr. Farhat Leal EGFR-AF ICELANDIC >60 Normal >=60 [facility] Comment on above: Performed By: #### C CARA, PHOS ####[facility] [address] [place], [place] [address]Dr. Farhat Leal EGFR-NON AF ICELANDIC >60 Normal >=60 [facility] Comment on above: Performed By: #### C CARA, PHOS ####[facility] [address] [place], [place] [address]Dr. Farhat Leal Globulin (S) [Mass/Vol] 3.7 g/dL Normal [facility] Comment on above: Performed By: #### C CARA, PHOS ####[facility] [address] [place], [place] [address]Dr. Farhat Leal Glucose [Mass/Vol] 287 mg/dL Critically high 74-106 T [facility] Comment on above: Performed By: #### C CARA, PHOS ####[facility] [address] [place] [address]Dr. Farhat Leal Potassium [Moles/Vol] 3.9 mmol/L Normal 3.5-5.1 [facility] Comment on above: Performed By: #### C CARA, PHOS ####[facility] [address] [place] [address]Dr. Farhat Leal Protein [Mass/Vol] 5.8 g/dL Critically low 6.4-8.2 [facility] Comment on above: Performed By: #### C CARA, PHOS ####[facility] [address] [place], [place] [address]Of. Farhat Leal Sodium [Moles/Vol] 132 mmol/L Critically low 136-145 Th [facility] Comment on above: Performed By: #### C CARA, PHOS ####[facility] [address] [place], [place] [address]Kg. Farhat Leal Urea nitrogen [Mass/Vol] 23.0 mg/dL Critically high 7.0-18.0 [facility] Comment on above: Performed By: #### C CARA, PHOS ####[facility] [address] [place] [id number]. Farhat Leal Urea nitrogen/Creatinine [Mass ratio] 22.3 mg/mg Normal [facility] Comment on above: Performed By: #### C CARA, PHOS ####[facility] [address] [place] [id number]. Farhat Leal FK506 (TACROLIMUS) WHOLE BLO ODon 01-21-2022 Tacrolimus (FK506), Blood 12.2 ng/mL Normal 2.0-20.0 [facility] Comment on above: Result Comment: Trou gh (immediately following transplant) 15.0 . Trough (steady state, 2 weeks or more after transplant): 3.0 - 8.0 . Performed by LC-MS/MS technology. Performed By: #### F K506T ####[facility] [address] [place] [id number]. Farhat Leal ACID FAST SMEAR AND CXon Acid Fast Culture Negative Normal [facility] Comment on above: Result Comment: No a abdiel fast bacilli isolated after 6 weeks. Performed By: #### A FB ####[facility] [address] [place] [id number]. Farhat Leal Acid Fast Smear Negative Normal [facility] Comment on above: Performed By: #### A FB ####[facility] [address] [place] [id number]. Farhat Leal [employer] Specimen Processing Tissue Grinding Normal [facility] Comment on above: Performed By: #### A FB ####[facility] [address] [place], [place] [address]ArSkylar Leal Sonya 01-20-2022 DIAMANTEN Telephone (KIMBERLY) ALEX ALMONTE ([id number]) 1945 M TRN Date Time Provider Department 01/20/22 VAN OLIVAREZ During your visit today, we recorded the following information about you: Van Olivarez APRN.DIAMANTE 01/20/2022 1:14 PM Signed Labs noted from yesterday. Pt is currently residing at [facility], I spoke with the Nurse, [...] by mouth daily with lunch. 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/2021 Atherosclerosis of menominee artery of extremity w*11/29/2021 Malnutrition of moderate degree (HCC) [E44.0] 12/01/2021 Dermatitis associated with moisture [L30.8] 12/04/2021 Encounter Status:Closed by VAN OLIVAREZ on 01/20/22 Normal [facility] Walter PROF 14(COMP METB)on 022 Albumin [Mass/Vol] 1.9 g/dL Critically low 3.4-5.0 Th e [facility] Comment on above: Performed By: #### C MP ####[facility] [address] [place] [address]DrSkylar Leal Albumin/Globulin [Mass ratio] 0.5 {ratio} Normal [facility] Comment on above: Performed By: #### C MP ####[facility] Bos[address]cy[address] [place] [id number]. Farhat Leal ALP [Catalytic activity/Vol] 78 U/L Normal 46-116 [facility] Comment on above: Performed By: #### C MP ####[facility] Etta[address]azaya[address] [place] [id number]. Farhat Leal ALT [Catalytic activity/Vol] 22 U/L Normal 16-63 [facility] Comment on above: Performed By: #### C MP ####[facility] U[address]rtkszh[address] [place] [address]Dr. Farhat Leal Anion gap [Moles/Vol] 8.0 mmol/L Normal [facility] Comment on above: Performed By: #### C MP ####[facility] Yvcaykwfcs[address] [place] [address]Dr. Farhat Leal AST [Catalytic activity/Vol] 92 U/L Critically high 15-37 [facility] Comment on above: Performed By: #### C MP ####[facility] Eszceqdxrw4[address] [place] [address]Dr. Farhat Leal Bilirubin [Mass/Vol] 0.7 mg/dL Normal 0.2-1.0 The [facility] Comment on above: Performed By: #### C MP ####[facility] Xsughkmsfl[address] [place] [address]Dr. Farhat Leal Calcium [Mass/Vol] 7.8 mg/dL Critically low 8.5-10.1 Th [facility] Comment on above: Performed By: #### C MP ####[facility] [address]ysfmrcxa[address] [place] [address]Dr. Farhat Leal Chloride [Moles/Vol] 99 mmol/L Normal 98-107 [facility] Comment on above: Performed By: #### C MP ####[facility] Gatzxopmku[address] [place] [address]Dr. Farhat Leal CO2 [Moles/Vol] 30.9 mmol/L Normal 21.0-32.0 The [facility] Comment on above: Performed By: #### C MP ####[facility] Jvwmenhowi[address] [place] [address]Dr. Madelynlorri Leal Creatinine [Mass/Vol] 0.95 mg/dL Normal 0.70-1.30 [facility] Comment on above: Performed By: #### C MP ####[facility] Oojpgpuvsv[address] [place], [place] [address]Dr. Farhat Elvis EGFR-AF ICELANDIC >60 Normal >=60 [facility] Comment on above: Performed By: #### C MP ####[facility] Upzncblwmn057[address] [place], [place] [address]Dr. Farhat Leal EGFR-NON AF ICELANDIC >60 Normal >=60 [facility] Comment on above: Performed By: #### C MP ####[facility] Ojhdtjskff[address] [place], [place] [address]Dr. Farhat Leal Globulin (S) [Mass/Vol] 3.9 g/dL Normal [facility] Comment on above: Performed By: #### C MP ####[facility] Vmnqhcpgcj[address] [place], [place] [address]Dr. Farhat Leal Glucose [Mass/Vol] 124 mg/dL Critically high 74-106 T [facility] Comment on above: Performed By: #### C MP ####[facility] Vczdviqzyv[address] [place], [place] [address]Dr. Farhat Leal Potassium [Moles/Vol] 5.9 mmol/L Critically high 3.5-5.1 [facility] Comment on above: Performed By: #### C MP ####[facility] Mtozmmjtxh[address] [place], [place] [address]Dr. Farhat Leal Protein [Mass/Vol] 5.8 g/dL Critically low 6.4-8.2 Th [facility] Comment on above: Performed By: #### C MP ####[facility] Hivgnmbtgu8[address] [place], [place] [address]Dr. Farhat Leal Sodium [Moles/Vol] 132 mmol/L Critically low 136-145 Th [facility] Comment on above: Performed By: #### C MP ####[facility] Sddwvhinxn[address] [place], [place] [address]Dr. Farhat Leal Urea nitrogen [Mass/Vol] 18.0 mg/dL Normal 7.0-18.0 [facility] Comment on above: Performed By: #### C MP ####[facility] [address]ud[address]igqxl8[address] [place], [place] [address]Fu. Farhat Leal Urea nitrogen/Creatinine [Mass ratio] 18.9 mg/mg Normal [facility] Comment on above: Performed By: #### C MP ####[facility] Maqjqnnusi4[address] [place] [id number]. Farhat Leal INR (POC)on 01-12-2022 INR Coag (PPP) [Relative time] 2.6 {INR} High 0.8 - 1.2 [facility] Internal Quality Check Acceptable Cl [facility] ACID FAST SMEAR AND CXon Acid Fast Culture Negative Normal [facility] Comment on above: Result Comment: No a abdiel fast bacilli isolated after 6 weeks. Performed By: #### A FB ####[facility] Gazeeutcho[address] [place], [place] [id number]. Farhat Leal Acid Fast Smear Negative Normal [facility] Comment on above: Performed By: #### A FB ####[facility] Xspyevycjr[address] [place], [place] [id number]. Farhat Leal [employer] Specimen Processing Direct Inoculation Normal [facility] Comment on above: Performed By: #### A FB ####[facility] Dbaeaagibf8009 [place] [id number]. Madelynlorri Leal ACID FAST SMEAR AND CXon Acid Fast Culture Negative Normal [facility] Comment on above: Result Comment: No a abdiel fast bacilli isolated after 6 weeks. Performed By: #### A FB ####[facility] Kptwga[address]ff7560 [place] [id number]. Farhat Leal Acid Fast Smear Negative Normal [facility] Comment on above: Performed By: #### A FB ####[facility] Ogyjduocub9786 [place] [id number]. Farhat Le[employer] Specimen Processing Tissue Grinding Normal [facility] Comment on above: Performed By: #### A FB ####[facility] Azxzqmuiti2935 [place] [id number]. Farhat Leal FUNGAL CULTUREon 01-02-2022 Fungus (Mycology) Culture Final report Normal [facility] Comment on above: Performed By: #### C XFUN ####[facility] Bxebxxackz[address] [place], [place] [address]Dr. Farhat Leal Fungus Stain Final report Normal [facility] Comment on above: Performed By: #### C XFUN ####[facility] Oubzmyiilj[address] [place] [address]Dr. Farhat Leal Result 1 Comment Normal [facility] Comment on above: Result Comment: ANNI/ Calcofluor preparation: no fungus observed. Performed By: #### C XFUN ####[facility] Mccuitfpux[address] [place], [place] [address]Dr. Farhat Leal Result Comment: No y east or mold isolated after 4 weeks. FK506 (TACROLIMUS) WHOLE BLO ODon 12-31-2021 Tacrolimus (FK506), Blood 7.7 ng/mL Normal 2.0-20.0 [facility] Comment on above: Result Comment: Trou gh (immediately following transplant) 15.0 . Trough (steady state, 2 weeks or more after transplant): 3.0 - 8.0 . Performed by LC-MS/MS technology. Performed By: #### F K506T ####[facility] [address]mcfc[address] [place], [place] [address]Dr. Farhat Leal HEMOGRAM AND PLATELon 2021 Hematocrit (Bld) [Volume fraction] 27.1 % Critically low 42.0-54.0 [facility] Comment on above: Performed By: #### H H ####[facility] Lclwgoxpqh[address] [place], [place] [address]Dr. Farhat Leal Hemoglobin (Bld) [Mass/Vol] 8.7 g/dL Critically low 14.0-18.0 [facility] Comment on above: Performed By: #### H H ####[facility] Ovioelqwti8[address] [place], [place] [address]Dr. Farhat Leal MCH (RBC) [Entitic mass] 30.3 pg Normal 25.9-34.0 [facility] Comment on above: Performed By: #### H H ####[facility] [address]qizej[address] [place] [address]Dr. Farhat Leal MCHC (RBC) [Mass/Vol] 32.1 g/dL Normal 29.9-35.2 [facility] Comment on above: Performed By: #### H H ####[facility] [address]vxzllutyd9836 [place] [id number]. Farhat Elvis MCV (RBC) [Entitic vol] 94.4 fL Critically high 80.0-94.0 [facility] Comment on above: Performed By: #### H H ####[facility] Tlgdepnvyp[address] [place] [address]Dr. Farhat Elvis PLT 355 103/ul Normal 150-450 [facility] Comment on above: Performed By: #### H H ####[facility] X[address]rbrlnf[address] [place] [address]Dr. Farhat Leal RBC 2.87 106/ul Critically low 4.70-6.10 [facility] Comment on above: Performed By: #### H H ####[facility] Alvndjzsbp[address] [place] [address]Dr. Farhat Elvis WBC 6.0 103/ul Normal 4.0-11.0 [facility] Comment on above: Performed By: #### H H ####[facility] [address]zrh[address]pbz9668 [place] [id number]. Farhat Leal PHOSPHORUSon 12-29-2021 Phosphate [Mass/Vol] 2.5 mg/dL Critically low 2.6-4.7 [facility] Comment on above: Performed By: #### P HOS, CMP ####[facility] We[address]jgq[address] [place] [address]Dr. Farhat Leal PROF 14(COMP METB)on 022 Albumin [Mass/Vol] 1.7 g/dL Critically low 3.4-5.0 [facility] Comment on above: Performed By: #### P HOS, CMP ####[facility] Mnpzngxklq15[address] [place] [address]Dr. Farhat Leal Albumin/Globulin [Mass ratio] 0.5 {ratio} Normal [facility] Comment on above: Performed By: #### P HOS, CMP ####[facility] Pwpyeceepn[address] [place], [place] [address]Dr. Farhat Leal ALP [Catalytic activity/Vol] 78 U/L Normal 46-116 [facility] Comment on above: Performed By: #### P HOS, CMP ####[facility] Peprlaokvv06[address] [place], [place] [address]Dr. Farhat Leal ALT [Catalytic activity/Vol] 12 U/L Critically low 16-63 [facility] Comment on above: Performed By: #### P HOS, CMP ####[facility] Tefgejrosz7[address] [place], [place] [address]Dr. Farhat Leal Anion gap [Moles/Vol] 5.1 mmol/L Normal [facility] Comment on above: Performed By: #### P HOS, CMP ####[facility] Fvqfstmcup[address] [place], [place] [address]Dr. Farhat Leal AST [Catalytic activity/Vol] 22 U/L Normal 15-37 [facility] Comment on above: Performed By: #### P HOS, CMP ####[facility] Uapvqoslwm46[address] [place], [place] [address]Dr. Farhat Leal Bilirubin [Mass/Vol] 0.6 mg/dL Normal 0.2-1.0 [facility] Comment on above: Performed By: #### P HOS, CMP ####[facility] Osaglzzthz[address] [place], [place] [address]Dr. aFrhat Leal Calcium [Mass/Vol] 8.1 mg/dL Critically low 8.5-10.1 Th [facility] Comment on above: Performed By: #### P HOS, CMP ####[facility] Vyitvgceep7[address] [place], [place] [address]Dr. Madelynlorri Elvis Chloride [Moles/Vol] 100 mmol/L Normal 98-107 [facility] Comment on above: Performed By: #### P HOS, CMP ####[facility] Azizqxcmuw[address] [place] [address]Dr. Farhat eLal CO2 [Moles/Vol] 34.2 mmol/L Critically high 21.0-32.0 [facility] Comment on above: Performed By: #### P HOS, CMP ####[facility] Ficqgitrub[address] [place], [place] [address]Dr. Farhat Leal Creatinine [Mass/Vol] 0.92 mg/dL Normal 0.70-1.30 [facility] Comment on above: Performed By: #### P HOS, CMP ####[facility] Anduamvjkz[address] [place], [place] [address]Dr. Farhat Leal EGFR-AF ICELANDIC >60 Normal >=60 [facility] Comment on above: Performed By: #### P HOS, CMP ####[facility] Wtljfnwmob54[address] [place], [place] [address]Dr. Farhat Leal EGFR-NON AF ICELANDIC >60 Normal >=60 [facility] Comment on above: Performed By: #### P HOS, CMP ####[facility] Smengtjuqd[address] [place], [place] [address]Dr. Farhat Leal Globulin (S) [Mass/Vol] 3.3 g/dL Normal [facility] Comment on above: Performed By: #### P HOS, CMP ####[facility] Yvyuujkana[address] [place], [place] [address]Dr. Farhat Leal Glucose [Mass/Vol] 116 mg/dL Critically high 74-106 T [facility] Comment on above: Performed By: #### P HOS, CMP ####[facility] Esoiloqpbn4525[address] [place], [place] [address]Dr. Farhat Leal Potassium [Moles/Vol] 3.3 mmol/L Critically low 3.5-5.1 [facility] Comment on above: Performed By: #### P HOS, CMP ####[facility] Bntgjcrkcn[address] [place], [place] [address]Dr. Farhat Leal Protein [Mass/Vol] 5.0 g/dL Critically low 6.4-8.2 Th e [facility] Comment on above: Performed By: #### P HOS, CMP ####[facility] Izlxjwhalm2803 [place] [id number]. Farhat Leal Sodium [Moles/Vol] 136 mmol/L Normal 136-145 The [facility] Comment on above: Performed By: #### P HOS, CMP ####[facility] Gdzosifzsv[address] [place] [address]Dr. Farhat Leal Urea nitrogen [Mass/Vol] 14.0 mg/dL Normal 7.0-18.0 [facility] Comment on above: Performed By: #### P HOS, CMP ####[facility] Poizcgkwlk7624 [place] [id number]. Farhat Leal Urea nitrogen/Creatinine [Mass ratio] 15.2 mg/mg Normal [facility] Comment on above: Performed By: #### P HOS, CMP ####[facility] Utyzuezahs[address] [place], [place] [address]Dr. Farhat Leal PROTIMEon 12-29-2021 INR Coag (PPP) [Relative time] 1.26 {INR} Normal [facility] Comment on above: Performed By: #### P T ####[facility] Zgvfszsikd[address] [place], [place] [address]Dr. Farhat Leal INR GUIDELINES SEE BELOW Normal [facility] Comment on above: Result Comment: MALINA RED INR: 2.0 - 3.0 CONDITIONS NOT LISTED BELOW 2.5 - 3.5 FOR PROSTHETIC HEART VALVE REPLACEMENT 2.5 - 3.5 RECURRENT THROMBOSIS Performed By: #### P T ####[facility] Frzkbhiwza[address] [place], [place] [address]Dr. Farhat Leal PT Coag (PPP) [Time] 13.4 s Critically high 9.0-11.6 [facility] Comment on above: Performed By: #### P T ####[facility] Masfieanlz[address] [place], [place] [address]Dr. Farhat Leal XR MODIFIED BARIUM SWALLOWon 12-25-2021 XR MODIFIED BARIUM SWALLOW Normal [facility] FUNGAL CULTUREon 12-24-2021 Fungus (Mycology) Culture Final report Normal [facility] Comment on above: Performed By: #### C XFUN ####[facility] [address]ro[address]pae[address] [place] [address]Dr. Farhat Leal Fungus Stain Final report Normal [facility] Comment on above: Performed By: #### C XFUN ####[facility] Iskbkdgvas[address] [place], [place] [address]Dr. Farhat Leal Result 1 Comment Normal [facility] Comment on above: Result Comment: ANNI/ Calcofluor preparation: no fungus observed. Performed By: #### C XFUN ####[facility] Kkkqvrccai[address] [place], [place] [address]Dr. Farhat Leal Result Comment: No y east or mold isolated after 4 weeks. VANCOMYCIN TROUGHon 12-21-19 VANCOMYCIN TROUGH 14.4 ug/ml Normal 5.0-20.0 [facility] Comment on above: Performed By: #### V ANCT ####[facility] Fatszmpmps[address] [place], [place] [address]Dr. Farhat Leal CBC AUTO DIFFon 12-14-2021 BASO # 0.0 103/ul Normal 0.0-0.1 [facility] Comment on above: Performed By: #### C BC ####[facility] Gdtdvlypwu205[address] [place], [place] [address]Dr. Farhat Leal Basophils/100 WBC (Bld) 0.2 % Normal 0.2-2.0 [facility] Comment on above: Performed By: #### C BC ####[facility] Wbtlwqizar[address] [place], [place] [address]Dr. Farhat Leal EO # 0.2 103/ul Normal 0.0-0.7 [facility] Comment on above: Performed By: #### C BC ####[facility] Nilrjfldhs[address] [place], [place] [address]Dr. Farhat Leal Eosinophils/100 WBC (Bld) 2.1 % Normal 0.9-7.0 [facility] Comment on above: Performed By: #### C BC ####[facility] Ereflmwdox[address] [place], [place] [address]Dr. Farhat Leal Erythrocyte distribution width (RBC) [Ratio] 18.2 % Critically high 11.0-15.0 [facility] Comment on above: Performed By: #### C BC ####[facility] Cpyevzhyyh[address] [place] [address]Dr. Farhat Leal Hematocrit (Bld) [Volume fraction] 25.8 % Critically low 42.0-54.0 [facility] Comment on above: Performed By: #### C BC ####[facility] Ohcarsoihj[address] [place] [address]Dr. Farhat Leal Hemoglobin (Bld) [Mass/Vol] 8.0 g/dL Critically low 14.0-18.0 [facility] Comment on above: Performed By: #### C BC ####[facility] Pjnbymassu[address] [place], [place] [address]Dr. Farhat Leal IG # 0.08 10e3/ul Critically high 0.00-0.03 [facility] Comment on above: Performed By: #### C BC ####[facility] Lzmqchutxq[address] [place], [place] [address]Dr. Farhat Leal IG % 0.7 % Critically high 0.0-0.5 [facility] Comment on above: Performed By: #### C BC ####[facility] Kypkvxblrl[address] [place], [place] [address]DrSkylar Leal LYMPH # 0.9 103/ul Critically low 1.2-3.[address] [facility] Comment on above: Performed By: #### C BC ####[facility] Askehlitqc17[address] [place], [place] [address]DrSkylar Leal Lymphocytes/100 WBC (Bld) 8.7 % Critically low 20.5-60.0 [facility] Comment on above: Performed By: #### C BC ####[facility] Scqmlwevkz[address] [place], [place] [address]DrSkylar Leal MANUAL DIFF REQ NO Normal [facility] Comment on above: Performed By: #### C BC ####[facility] Ifxcyqohig[address] [place] [address]DrSkylar Leal MCH (RBC) [Entitic mass] 30.0 pg Normal 25.9-34.0 [facility] Comment on above: Performed By: #### C BC ####[facility] Kkwxfbfhmv4031 [place] [id number]. Madelynlorri Elvis MCHC (RBC) [Mass/Vol] 31.0 g/dL Normal 29.9-35.2 [facility] Comment on above: Performed By: #### C BC ####[facility] Hyxesnpljs6[address] [place] [address]DrSkylar Leal MCV (RBC) [Entitic vol] 96.6 fL Critically high 80.0-94.0 [facility] Comment on above: Performed By: #### C BC ####[facility] Fnfwantyzy[address] [place], [place] [address]DrSkylar Leal MONO # 0.7 103/ul Normal 0.3-0.8 [facility] Comment on above: Performed By: #### C BC ####[facility] Lnectwnjpv[address] [place], [place] [address]Dr. Farhat Leal Monocytes/100 WBC (Bld) 6.7 % Normal 1.7-12.0 [facility] Comment on above: Performed By: #### C BC ####[facility] Phehbclojg[address] [place], [place] [address]Dr. Farhat Leal NEUT # 8.8 103/ul Critically high 1.4-6.5 [facility] Comment on above: Performed By: #### C BC ####[facility] Gykpuihfov19[address] [place], [place] [address]DrSkylar Leal Neutrophils/100 WBC (Bld) 81.6 % Critically high 43.0-75.0 [facility] Comment on above: Performed By: #### C BC ####[facility] Kqrajebxzt[address] [place], [place] [address]DrSkylar Leal Platelet mean volume (Bld) [Entitic vol] 10.5 fL Normal 9.5-13.5 [facility] Comment on above: Performed By: #### C BC ####[facility] Qmabyldede004[address] [place], [place] [address]Dr. Farhat Leal PLT 285 103/ul Normal 150-450 [facility] Comment on above: Performed By: #### C BC ####[facility] Iuftedhvjr25[address] [place] [address]Dr. Farhat Leal RBC 2.67 106/ul Critically low 4.70-6.10 [facility] Comment on above: Performed By: #### C BC ####[facility] Ztgniafpne[address] [place] [address]Dr. Farhat Leal WBC 10.7 103/ul Normal 4.0-11.0 [facility] Comment on above: Performed By: #### C BC ####[facility] Gifsmvjdor65[address] [place] [address]Dr. Farhat Leal PROF CHEM 8 (BAS METB)on Anion gap [Moles/Vol] 12.4 mmol/L Normal [facility] Comment on above: Performed By: #### B MP ####[facility] Dhfykinkue[address] [place], [place] [address]Dr. Farhat Leal Calcium [Mass/Vol] 7.8 mg/dL Critically low 8.5-10.1 [facility] Comment on above: Performed By: #### B MP ####[facility] Nbtsmlojzx[address] [place], [place] [address]Dr. Farhat Leal Chloride [Moles/Vol] 102 mmol/L Normal 98-107 [facility] Comment on above: Performed By: #### B MP ####[facility] Wnzyyqsckq[address] [place], [place] [address]Dr. Farhat Leal CO2 [Moles/Vol] 28.1 mmol/L Normal 21.0-32.0 [facility] Comment on above: Performed By: #### B MP ####[facility] Zhnxlnsrcl[address] [place], [place] [address]Dr. Farhat Leal Creatinine [Mass/Vol] 1.24 mg/dL Normal 0.70-1.30 [facility] Comment on above: Performed By: #### B MP ####[facility] Fcytkhlylr[address] [place], [place] [address]Dr. Farhat Leal EGFR-AF ICELANDIC >60 Normal >=60 [facility] Comment on above: Performed By: #### B MP ####[facility] Lzpysaponc4975 [place] [id number]. Farhat Leal EGFR-NON AF ICELANDIC 57 mL/min/1.73m2 Critically low >=60 [facility] Comment on above: Performed By: #### B MP ####[facility] Lvxdiqvugk8188 [place] [id number]. Farhat Leal Glucose [Mass/Vol] 296 mg/dL Critically high 74-106 [facility] Comment on above: Performed By: #### B MP ####[facility] Nwyusvsroy[address] [place] [address]Dr. Farhat Leal Potassium [Moles/Vol] 3.5 mmol/L Normal 3.5-5.1 [facility] Comment on above: Performed By: #### B MP ####[facility] [address] [place], [place] [address]Dr. Farhat Leal Sodium [Moles/Vol] 139 mmol/L Normal 136-145 [facility] Comment on above: Performed By: #### B MP ####[facility] Qhpuuiwvme[address] [place], [place] [address]Dr. Farhat Leal Urea nitrogen [Mass/Vol] 27.0 mg/dL Critically high 7.0-18.0 [facility] Comment on above: Performed By: #### B MP ####[facility] A[address]xcqxifp[address] [place] [address]Dr. Farhat Leal Urea nitrogen/Creatinine [Mass ratio] 21.8 mg/mg Normal [facility] Comment on above: Performed By: #### B MP ####[facility] Vgofiohrap11[address] [place] [id number]. Farhat Leal PROTIMEon 12-14-2021 INR Coag (PPP) [Relative time] 3.36 {INR} Normal [facility] Comment on above: Performed By: #### P T ####[facility] Racsmlwcnk[address] [place] [address]Dr. Farhat Leal INR GUIDELINES SEE BELOW Normal [facility] Comment on above: Result Comment: MALINA RED INR: 2.0 - 3.0 CONDITIONS NOT LISTED BELOW 2.5 - 3.5 FOR PROSTHETIC HEART VALVE REPLACEMENT 2.5 - 3.5 RECURRENT THROMBOSIS Performed By: #### P T ####[facility] Ujaqmrdnxm63[address] [place], [place] [address]Rt. Farhat Leal PT Coag (PPP) [Time] 33.5 s Critically high 9.0-11.6 [facility] Comment on above: Performed By: #### P T ####[facility] Mwryjjgslj9846 [place], [place] [address]Xm. Farhat Leal XR CHEST 1 Von 12-14-2021 XR CHEST 1 V Normal [facility] No Panel Informationon 12-01 BLANK _ [facility] Implant Date 04/22/2012 [facility] CHECKon AMS Duration (ms) 5 of 8 [facility] AMS Fallback Rate (bpm) DDIR [facility] [...] [facility] AV Delay Paced (ms) 300 ms [facility] AV Delay Sensed (ms) 300 ms [facility] Jaciel LV Pacing Polarity Unknown [facility] [...] - [facility] Lower Rate (bpm) 60 {beats}/min [facility] Max Sensor Rate (bmp) 130 {beats}/min [facility] Model [id number] Monika CORTEZ [facility] Model [id number] [facility] Model [id number] [facility] Pacemaker Dependent? NO [facility] PM-Device Mfg BIO [facility] PM-PMT Intervention ON [facility] PM-PVC Intervention ON [facility] PM-Rate Modulation Acceleration Reaction 4 s [facility] PM-Rate Modulation Deceleration 0.5 m [facility] PM-Rate Modulation Heard 23 [facility] PM-Rate Modulation Threshold Medium [facility] RA Bipolar Impedance ohms 448 ohm [facility] Rhythm AF with controlled ventricular rate. [facility] RV Bipolar Impedance ohms 390 ohm [facility] Serial Number [id number] [facility] Serial Number [id number] [facility] Serial Number [id number] [facility] [...] BNPon 11-28-2021 Natriuretic peptide B (Bld) [Mass/Vol] 15132.0 pg/mL Critically high <=1,800.0 [facility] Comment on above: Performed By: #### C MP, BNP, CRP ####[facility] Fwrfnsnueg[address] [place] [address]Dr. Farhat Leal CBC AUTO DIFFon 11-28-2021 BASO # 0.0 103/ul Normal 0.0-0.1 [facility] Comment on above: Performed By: #### C BC ####[facility] Oqgbxaalbe[address] [place] [address]Dr. Farhat Leal Basophils/100 WBC (Bld) 0.3 % Normal 0.2-2.0 [facility] Comment on above: Performed By: #### C BC ####[facility] Sxlxalxebm2741 [place] [id number]. Farhat Leal EO # 0.1 103/ul Normal 0.0-0.7 [facility] Comment on above: Performed By: #### C BC ####[facility] Hbljcedzak7362 [place] [id number]. Farhat Leal Eosinophils/100 WBC (Bld) 1.0 % Normal 0.9-7.0 [facility] Comment on above: Performed By: #### C BC ####[facility] Nybxjtsxqg[address] [place], [place] [address]Dr. Farhat Leal Erythrocyte distribution width (RBC) [Ratio] 14.0 % Normal 11.0-15.0 [facility] Comment on above: Performed By: #### C BC ####[facility] Awaqhxuhkt[address] [place], [place] [address]Dr. Farhat Leal Hematocrit (Bld) [Volume fraction] 27.6 % Critically low 42.0-54.0 [facility] Comment on above: Performed By: #### C BC ####[facility] Pzppnimzcr[address] [place], [place] [address]Dr. Farhat Leal Hemoglobin (Bld) [Mass/Vol] 9.0 g/dL Critically low 14.0-18.0 [facility] Comment on above: Performed By: #### C BC ####[facility] Nvebucrmba[address] [place], [place] [address]Dr. Farhat Leal IG # 0.12 10e3/ul Critically high 0.00-0.03 [facility] Comment on above: Performed By: #### C BC ####[facility] Cboxunxffp[address] [place], [place] [address]Dr. Madelynlorri Leal IG % 1.0 % Critically high 0.0-0.5 [facility] Comment on above: Performed By: #### C BC ####[facility] Rlkuitqrkd[address] [place], [place] [address]Dr. Farhat Leal LYMPH # 1.2 103/ul Normal 1.2-3.8 [facility] Comment on above: Performed By: #### C BC ####[facility] Qbwhxqmayg3103 [place] [id number]. Farhat Elvis Lymphocytes/100 WBC (Bld) 9.9 % Critically low 20.5-60.0 [facility] Comment on above: Performed By: #### C BC ####[facility] Apjcnkslzq7564 [place] [id number]. Farhat Leal MANUAL DIFF REQ NO Normal [facility] Comment on above: Performed By: #### C BC ####[facility] Xrsqcafiip2474 [place] [id number]. Farhat Leal MCH (RBC) [Entitic mass] 30.0 pg Normal 25.9-34.0 [facility] Comment on above: Performed By: #### C BC ####[facility] Eeoyailsza[address] [place], [place] [address]Dr. Farhat Leal MCHC (RBC) [Mass/Vol] 32.6 g/dL Normal 29.9-35.2 [facility] Comment on above: Performed By: #### C BC ####[facility] Uitmfpse[address] [place], [place] [address]Dr. Farhat Leal MCV (RBC) [Entitic vol] 92.0 fL Normal 80.0-94.0 [facility] Comment on above: Performed By: #### C BC ####[facility] Xavdcprnyi[address] [place], [place] [address]Dr. Farhat Leal MONO # 1.1 103/ul Critically high 0.3-0.8 [facility] Comment on above: Performed By: #### C BC ####[facility] Xcbbnlayzn[address] [place], [place] [address]Dr. Farhat Leal Monocytes/100 WBC (Bld) 9.3 % Normal 1.7-12.0 [facility] Comment on above: Performed By: #### C BC ####[facility] Eix[address]shib[address] [place], [place] [address]Dr. Farhat Leal NEUT # 9.3 103/ul Critically high 1.4-6.5 [facility] Comment on above: Performed By: #### C BC ####[facility] Ansvserufo5121 [place], [place] [address]Mb. Farhat Leal Neutrophils/100 WBC (Bld) 78.5 % Critically high 43.0-75.0 [facility] Comment on above: Performed By: #### C BC ####[facility] Jlfmgmdepc5231 [place], [place] [address]Xo. Farhat Leal Platelet mean volume (Bld) [Entitic vol] 9.6 fL Normal 9.5-13.5 [facility] Comment on above: Performed By: #### C BC ####[facility] Uzjsfxrmsf6302 [place] [id number]. Farhat Elvis PLT 357 103/ul Normal 150-450 [facility] Comment on above: Performed By: #### C BC ####[facility] Ucorjdsrnl7841 [place] [id number]. Farhat Elvis RBC 3.00 106/ul Critically low 4.70-6.10 [facility] Comment on above: Performed By: #### C BC ####[facility] Vlgqtnwovm9369 [place] [id number]. Farhat Leal WBC 11.8 103/ul Critically high 4.0-11.0 [facility] Comment on above: Performed By: #### C BC ####[facility] Iofzxkeofh8[address] [place], [place] [address]Ow. Farhat Leal CRPon 11-28-2021 CRP 20.9 mg/dL Critically high <=1.0 [facility] Comment on above: Performed By: #### C MP, BNP, CRP ####[facility] Gnxtbtxaww[address] [place], [place] [address]Fg. Farhat Elvis CULTURE OTHERon 11-28-2021 CULTURE OTHER Normal [facility] Comment on above: Performed By: #### O THCX ####[facility] Jmvnbutwtl9774 [place] [id number]. Farhat Leal PROF 14(COMP METB)on 022 Albumin [Mass/Vol] 1.4 g/dL Critically low 3.4-5.0 [facility] Comment on above: Performed By: #### C MP, BNP, CRP ####[facility] Oxhvifstxd34[address] [place] [address]Dr. Farhat Leal Albumin/Globulin [Mass ratio] 0.4 {ratio} Normal [facility] Comment on above: Performed By: #### C MP, BNP, CRP ####[facility] Ewffvmlypm93[address] [place] [address]Dr. Farhat Leal ALP [Catalytic activity/Vol] 82 U/L Normal 46-116 [facility] Comment on above: Performed By: #### C MP, BNP, CRP ####[facility] Hzhzhgeyql[address] [place], [place] [address]Dr. Farhat Leal ALT [Catalytic activity/Vol] 20 U/L Normal 16-63 [facility] Comment on above: Performed By: #### C MP, BNP, CRP ####[facility] Lzscvoxtwh043[address] [place], [place] [address]Dr. Farhat Leal Anion gap [Moles/Vol] 13.0 mmol/L Normal [facility] Comment on above: Performed By: #### C MP, BNP, CRP ####[facility] Turgwlgpuk8[address] [place], [place] [address]Dr. Farhat Leal AST [Catalytic activity/Vol] 33 U/L Normal 15-37 [facility] Comment on above: Performed By: #### C MP, BNP, CRP ####[facility] Dabbhigplj9500[address] [place], [place] [address]Dr. Farhat Leal Bilirubin [Mass/Vol] 0.7 mg/dL Normal 0.2-1.0 [facility] Comment on above: Performed By: #### C MP, BNP, CRP ####[facility] Syzhhcyhgr[address] [place], [place] [address]Dr. Farhat Leal Calcium [Mass/Vol] 8.4 mg/dL Critically low 8.5-10.1 [facility] Comment on above: Performed By: #### C MP, BNP, CRP ####[facility] Cyqtabrrkd16[address] [place] [address]Dr. Farhat Leal Chloride [Moles/Vol] 100 mmol/L Normal 98-107 [facility] Comment on above: Performed By: #### C MP, BNP, CRP ####[facility] Ceyitjpazj50[address] [place], [place] [address]Dr. Farhat Leal CO2 [Moles/Vol] 23.7 mmol/L Normal 21.0-32.0 [facility] Comment on above: Performed By: #### C MP, BNP, CRP ####[facility] Rwpjuxxdyk562[address] [place], [place] [address]Dr. Farhat Leal Creatinine [Mass/Vol] 1.70 mg/dL Critically high 0.70-1.30 [facility] Comment on above: Performed By: #### C MP, BNP, CRP ####[facility] Xhzstlvmiy[address] [place], [place] [address]Dr. Farhat Elvis EGFR-AF ICELANDIC 48 mL/min/1.73m2 Critically low >=60 [facility] Comment on above: Performed By: #### C MP, BNP, CRP ####[facility] Ageldrhtwo4345[address] [place], [place] [address]Dr. Farhat Leal EGFR-NON AF ICELANDIC 39 mL/min/1.73m2 Critically low >=60 [facility] Comment on above: Performed By: #### C MP, BNP, CRP ####[facility] Qonsdvmzdq6320[address] [place], [place] [address]Dr. Farhat Leal Globulin (S) [Mass/Vol] 3.6 g/dL Normal [facility] Comment on above: Performed By: #### C MP, BNP, CRP ####[facility] Htkjbedxfb958[address] [place], [place] [address]Dr. Farhat Leal Glucose [Mass/Vol] 232 mg/dL Critically high 74-106 [facility] Comment on above: Performed By: #### C MP, BNP, CRP ####[facility] Tequpdnzgk8137[address] [place], [place] [address]Dr. Farhat Leal Potassium [Moles/Vol] 3.7 mmol/L Normal 3.5-5.1 [facility] Comment on above: Performed By: #### C MP, BNP, CRP ####[facility] Bywrchfpst5806 [place] [address]Dr. Farhat Leal Protein [Mass/Vol] 5.0 g/dL Critically low 6.4-8.2 [facility] Comment on above: Performed By: #### C MP, BNP, CRP ####[facility] Xvracyrllh0254 [place] [address]Dr. Farhat Leal Sodium [Moles/Vol] 133 mmol/L Critically low 136-145 [facility] Comment on above: Performed By: #### C MP, BNP, CRP ####[facility] Vzlxpttems40[address] [place], [place] [address]Dr. Farhat Leal Urea nitrogen [Mass/Vol] 52.0 mg/dL Critically high 7.0-18.0 [facility] Comment on above: Performed By: #### C MP, BNP, CRP ####[facility] Nqhvaicevr1157[address] [place], [place] [address]Dr. Farhat Leal Urea nitrogen/Creatinine [Mass ratio] 30.6 mg/mg Normal [facility] Comment on above: Performed By: #### C MP, BNP, CRP ####[facility] Wgscbsqeyi9426[address] [place], [place] [address]Dr. Farhat Leal PROTIMEon 11-28-2021 INR Coag (PPP) [Relative time] 1.29 {INR} Normal [facility] Comment on above: Performed By: #### P T ####[facility] Wyewucrheu96[address] [place], [place] [address]Dr. Farhat Leal INR GUIDELINES SEE BELOW Normal [facility] Comment on above: Result Comment: MALINA RED INR: 2.0 - 3.0 CONDITIONS NOT LISTED BELOW 2.5 - 3.5 FOR PROSTHETIC HEART VALVE REPLACEMENT 2.5 - 3.5 RECURRENT THROMBOSIS Performed By: #### P T ####[facility] Cqobqebxhx[address] [place], [place] [address]Dr. Farhat Leal PT Coag (PPP) [Time] 13.7 s Critically high 9.0-11.6 [facility] Comment on above: Performed By: #### P T ####[facility] Fogqzyqheh[address] [place] [address]Dr. Farhat Leal SED RATE WESTERGRENon 2021 SED RATE 77 mm/hr Critically high <=20 [facility] Comment on above: Performed By: #### S EDR ####[facility] Eqvfxumdai308[address] [place], [place] [address]Dr. Farhat Leal XR CHEST 2 Von 11-28-2021 XR CHEST 2 V Normal [facility] BNPon 11-27-2021 Natriuretic peptide B (Bld) [Mass/Vol] 75628.0 pg/mL Critically high <=1,800.0 [facility] Comment on above: Performed By: #### B INTERNET SALES ASSOCIATE, CMP, CRP ####[facility] Iuotfctuwp[address] [place], [place] [address]Dr. Farhat Leal CBC AUTO DIFFon 11-27-2021 BASO # 0.0 103/ul Normal 0.0-0.1 [facility] Comment on above: Performed By: #### C BC ####[facility] Vnbdcitfgk[address] [place], [place] [address]Dr. Farhat Elvis Basophils/100 WBC (Bld) 0.2 % Normal 0.2-2.0 [facility] Comment on above: Performed By: #### C BC ####[facility] Lilwxcxilt7[address] [place], [place] [address]Dr. Farhat Leal EO # 0.2 103/ul Normal 0.0-0.7 [facility] Comment on above: Performed By: #### C BC ####[facility] Jcpdykswpc8513[address] [place], [place] [address]Dr. Farhat Leal Eosinophils/100 WBC (Bld) 1.9 % Normal 0.9-7.0 [facility] Comment on above: Performed By: #### C BC ####[facility] Qjdtlsnreo786[address] [place], [place] [address]Dr. Farhat Leal Erythrocyte distribution width (RBC) [Ratio] 13.9 % Normal 11.0-15.0 [facility] Comment on above: Performed By: #### C BC ####[facility] Mhvujqwsgq8194 [place] [address]Dr. Farhat Leal Hematocrit (Bld) [Volume fraction] 28.7 % Critically low 42.0-54.0 [facility] Comment on above: Performed By: #### C BC ####[facility] Bkhbhsonpv0233 [place] [address]Dr. Farhat Leal Hemoglobin (Bld) [Mass/Vol] 9.3 g/dL Critically low 14.0-18.0 [facility] Comment on above: Performed By: #### C BC ####[facility] Pkbtkpxbpc5[address] [place] [address]Dr. Farhat Leal IG # 0.14 10e3/ul Critically high 0.00-0.03 [facility] Comment on above: Performed By: #### C BC ####[facility] Gqylcuoktg0[address] [place], [place] [address]Dr. Farhat Elvis IG % 1.2 % Critically high 0.0-0.5 [facility] Comment on above: Performed By: #### C BC ####[facility] Vctyywkkrn[address] [place], [place] [address]DrSkylar Farhat Leal LYMPH # 1.1 103/ul Critically low 1.2-3.8 [facility] Comment on above: Performed By: #### C BC ####[facility] Bsldjbeamc4165 [place] [address]DrSkylar Farhat Elvis Lymphocytes/100 WBC (Bld) 9.4 % Critically low 20.5-60.0 [facility] Comment on above: Performed By: #### C BC ####[facility] Xvrelucagi8306 [place] [address]DrSkylar Madelynlorri Leal MANUAL DIFF REQ NO Normal [facility] Comment on above: Performed By: #### C BC ####[facility] Wyhbguvqdv1222 [place] [address]DrSkylar Madelynlorri Leal MCH (RBC) [Entitic mass] 29.7 pg Normal 25.9-34.0 [facility] Comment on above: Performed By: #### C BC ####[facility] Aowdcngdti4150 [place] [id number]. Farhat Leal MCHC (RBC) [Mass/Vol] 32.4 g/dL Normal 29.9-35.2 [facility] Comment on above: Performed By: #### C BC ####[facility] Xtpsywmddw4311 [place] [id number] Farhat Elvis MCV (RBC) [Entitic vol] 91.7 fL Normal 80.0-94.0 [facility] Comment on above: Performed By: #### C BC ####[facility] Donhhgwdxp6916 [place] [id number] Leal MONO # 1.1 103/ul Critically high 0.3-0.8 [facility] Comment on above: Performed By: #### C BC ####[facility] H[address]wqjzdqpd[address] [place], [place] [address]DrSkylar Leal Monocytes/100 WBC (Bld) 9.7 % Normal 1.7-12.0 [facility] Comment on above: Performed By: #### C BC ####[facility] [address] [place], [place] [address]DrSkylar Joshilorri Elvis NEUT # 9.2 103/ul Critically high 1.4-6.5 [facility] Comment on above: Performed By: #### C BC ####[facility] Ezgbduagow[address] [place], [place] [address]DrSkylar Leal Neutrophils/100 WBC (Bld) 77.6 % Critically high 43.0-75.0 [facility] Comment on above: Performed By: #### C BC ####[facility] Mttyvngiqi2380 [place] [id number] Leal Platelet mean volume (Bld) [Entitic vol] 9.5 fL Normal 9.5-13.5 [facility] Comment on above: Performed By: #### C BC ####[facility] Ygwxkkkads0285 [place] [id number] Leal PLT 375 103/ul Normal 150-450 [facility] Comment on above: Performed By: #### C BC ####[facility] Zpvqihzcgh2467 [place] [id number]. Farhat Leal RBC 3.13 106/ul Critically low 4.70-6.10 [facility] Comment on above: Performed By: #### C BC ####[facility] Ioevzuoqjc8453 [place] [id number]. Farhat Leal WBC 11.8 103/ul Critically high 4.0-11.0 [facility] Comment on above: Performed By: #### C BC ####[facility] Vjtyeueqeo4998 [place], [place] [address]Vk. Farhat Leal CRPon 11-27-2021 CRP 24.5 mg/dL Critically high <=1.0 [facility] Comment on above: Performed By: #### B INTERNET SALES ASSOCIATE, CMP, CRP ####[facility] Xfjngjjfll2948 [place] [id number]. Farhat Leal CULTURE OTHERon 11-27-2021 CULTURE OTHER Normal [facility] Comment on above: Performed By: #### O THCX ####[facility] Zotpfnlhnt5490 [place] [id number]. Farhat Leal CULTURE WOUNDon 11-27-2021 CULTURE WOUND Normal [facility] Comment on above: Performed By: #### W OUNDCX ####[facility] Gxyhaujzuc7558 [place] [id number]. Farhat Elvis POINT OF CARE GLUCOSEon 11-15 Glucose [Mass/Vol] 147 mg/dL Critically high 74-106 [facility] Comment on above: Performed By: #### P OCGLUC ####[facility] Uwnchkylvl1756 [place] [id number]. Madelynlorri Leal PROF 14(COMP METB)on 022 Albumin [Mass/Vol] 1.4 g/dL Critically low 3.4-5.0 [facility] Comment on above: Performed By: #### B INTERNET SALES ASSOCIATE, CMP, CRP ####[facility] Mlwecvcpst2081 [place] [id number]. Farhat Leal Albumin/Globulin [Mass ratio] 0.4 {ratio} Normal [facility] Comment on above: Performed By: #### B INTERNET SALES ASSOCIATE, CMP, CRP ####[facility] Ctzcviebxo9396 [place] [address]Dr. Farhat Leal ALP [Catalytic activity/Vol] 82 U/L Normal 46-116 [facility] Comment on above: Performed By: #### B INTERNET SALES ASSOCIATE, CMP, CRP ####[facility] Ljnszkjmjo[address] [place], [place] [address]Dr. Farhat Leal ALT [Catalytic activity/Vol] 22 U/L Normal 16-63 [facility] Comment on above: Performed By: #### B INTERNET SALES ASSOCIATE, CMP, CRP ####[facility] Lnojtmrtzh25[address] [place], [place] [address]Dr. aFrhat Leal Anion gap [Moles/Vol] 14.2 mmol/L Normal [facility] Comment on above: Performed By: #### B INTERNET SALES ASSOCIATE, CMP, CRP ####[facility] Lrkzcevcoa[address] [place], [place] [address]Dr. Farhat Elvis AST [Catalytic activity/Vol] 35 U/L Normal 15-37 [facility] Comment on above: Performed By: #### B INTERNET SALES ASSOCIATE, CMP, CRP ####[facility] Syqcammwdj16[address] [place], [place] [address]Dr. Frahat Leal Bilirubin [Mass/Vol] 0.7 mg/dL Normal 0.2-1.0 [facility] Comment on above: Performed By: #### B INTERNET SALES ASSOCIATE, CMP, CRP ####[facility] Ownoquunsw88[address] [place], [place] [address]Dr. Farhat Leal Calcium [Mass/Vol] 8.2 mg/dL Critically low 8.5-10.1 [facility] Comment on above: Performed By: #### B INTERNET SALES ASSOCIATE, CMP, CRP ####[facility] [address]xdpeqz[address] [place] [address]Dr. Farhat Leal Chloride [Moles/Vol] 99 mmol/L Normal 98-107 [facility] Comment on above: Performed By: #### B INTERNET SALES ASSOCIATE, CMP, CRP ####[facility] Gcfnxrjohf44[address] [place] [id number]. Farhat Leal CO2 [Moles/Vol] 22.6 mmol/L Normal 21.0-32.0 [facility] Comment on above: Performed By: #### B INTERNET SALES ASSOCIATE, CMP, CRP ####[facility] [address]royak[address] [place] [address]Dr. Farhat Leal Creatinine [Mass/Vol] 1.73 mg/dL Critically high 0.70-1.30 [facility] Comment on above: Performed By: #### B INTERNET SALES ASSOCIATE, CMP, CRP ####[facility] Zghtgeqqdm[address] [place] [address]Dr. Farhat Leal EGFR-AF ICELANDIC 47 mL/min/1.73m2 Critically low >=60 [facility] Comment on above: Performed By: #### B INTERNET SALES ASSOCIATE, CMP, CRP ####[facility] Tzwizrmrae[address] [place] [address]Dr. Farhat Leal EGFR-NON AF ICELANDIC 38 mL/min/1.73m2 Critically low >=60 [facility] Comment on above: Performed By: #### B INTERNET SALES ASSOCIATE, CMP, CRP ####[facility] [address]oiyegbf[address] [place] [address]Dr. Farhat Leal Globulin (S) [Mass/Vol] 3.7 g/dL Normal [facility] Comment on above: Performed By: #### B INTERNET SALES ASSOCIATE, CMP, CRP ####[facility] Dmmzfyvccv[address] [place] [address]Dr. Farhat Leal Glucose [Mass/Vol] 220 mg/dL Critically high 74-106 [facility] Comment on above: Performed By: #### B INTERNET SALES ASSOCIATE, CMP, CRP ####[facility] [address]dteidgdln[address] [place] [address]Dr. Farhat Leal Potassium [Moles/Vol] 3.8 mmol/L Normal 3.5-5.1 [facility] Comment on above: Performed By: #### B INTERNET SALES ASSOCIATE, CMP, CRP ####[facility] Lsklysvsdz24[address] [place] [address]Dr. Farhat Leal Protein [Mass/Vol] 5.1 g/dL Critically low 6.4-8.2 [facility] Comment on above: Performed By: #### B INTERNET SALES ASSOCIATE, CMP, CRP ####[facility] Iedhhoswxx9[address] [place] [address]Dr. Farhat Leal Sodium [Moles/Vol] 132 mmol/L Critically low 136-145 [facility] Comment on above: Performed By: #### B INTERNET SALES ASSOCIATE, CMP, CRP ####[facility] Cqrbydsamm235[address] [place], [place] [address]Dr. Farhat Leal Urea nitrogen [Mass/Vol] 49.0 mg/dL Critically high 7.0-18.0 [facility] Comment on above: Performed By: #### B INTERNET SALES ASSOCIATE, CMP, CRP ####[facility] Oskhxmzctj[address] [place], [place] [address]Dr. Farhat Leal Urea nitrogen/Creatinine [Mass ratio] 28.3 mg/mg Normal [facility] Comment on above: Performed By: #### B INTERNET SALES ASSOCIATE, CMP, CRP ####[facility] Gyhrkhhxpk64[address] [place], [place] [address]Dr. Farhat Leal PROTIMEon 11-27-2021 INR Coag (PPP) [Relative time] 1.25 {INR} Normal [facility] Comment on above: Performed By: #### P T ####[facility] Zrniigskuu[address] [place], [place] [address]Dr. Farhat Leal INR GUIDELINES SEE BELOW Normal The [facility] Comment on above: Result Comment: MALINA RED INR: 2.0 - 3.0 CONDITIONS NOT LISTED BELOW 2.5 - 3.5 FOR PROSTHETIC HEART VALVE REPLACEMENT 2.5 - 3.5 RECURRENT THROMBOSIS Performed By: #### P T ####[facility] Pacfgddwgh040[address] [place], [place] [address]Dr. Farhat Leal PT Coag (PPP) [Time] 13.3 s Critically high 9.0-11.6 [facility] Comment on above: Performed By: #### P T ####[facility] Qwqhwohiih[address] [place], [place] [address]DrSkylar Leal SED RATE [facility] 2021 SED RATE 60 mm/hr Critically high <=20 [facility] Comment on above: Performed By: #### S EDR ####[facility] Fgwdpqyeij[address] [place], [place] [address]Dr. Farhat Elvis VANCOMYCIN TROUGHon 11-28-19 VANCOMYCIN TROUGH 21.2 ug/ml Critically high 5.0-20.0 Th e [facility] Comment on above: Performed By: #### V ANCT ####[facility] Xdwzzfhiec232[address] [place], [place] [address]Dr. Farhat Elvis XR CHEST 1 Von 11-27-2021 XR CHEST 1 V Normal [facility] BNPon 11-26-2021 Natriuretic peptide B (Bld) [Mass/Vol] 83756.0 pg/mL Critically high <=1,800.0 [facility] Comment on above: Performed By: #### B INTERNET SALES ASSOCIATE, CRP, CMP ####[facility] Pjzjxqspsx[address] [place], [place] [address]Dr. Madelynlorri Leal CBC AUTO DIFFon 11-26-2021 BASO # 0.0 103/ul Normal 0.0-0.1 [facility] Comment on above: Performed By: #### C BC ####[facility] Atibzdtceo[address] [place], [place] [address]Dr. Farhat Leal Basophils/100 WBC (Bld) 0.2 % Normal 0.2-2.0 [facility] Comment on above: Performed By: #### C BC ####[facility] Sjxkostpkl[address] [place], [place] [address]Dr. Farhat Leal EO # 0.0 103/ul Normal 0.0-0.7 [facility] Comment on above: Performed By: #### C BC ####[facility] Hqtvkkhxrc73[address] [place], [place] [address]Dr. Farhat Leal Eosinophils/100 WBC (Bld) 0.3 % Critically low 0.9-7.0 [facility] Comment on above: Performed By: #### C BC ####[facility] Nrdxbbgxzq9[address] [place], [place] [address]DrSkylar Leal Erythrocyte distribution width (RBC) [Ratio] 13.9 % Normal 11.0-15.0 [facility] Comment on above: Performed By: #### C BC ####[facility] [address]bhq[address] [place] [address]DrSkylar Leal Hematocrit (Bld) [Volume fraction] 27.3 % Critically low 42.0-54.0 [facility] Comment on above: Performed By: #### C BC ####[facility] Bfsjmjdhkg[address] [place], [place] [address]DrSkylar Leal Hemoglobin (Bld) [Mass/Vol] 8.8 g/dL Critically low 14.0-18.0 [facility] Comment on above: Performed By: #### C BC ####[facility] Kyymichawl[address] [place], [place] [address]DrSkylar Leal IG # 0.17 10e3/ul Critically high 0.00-0.03 [facility] Comment on above: Performed By: #### C BC ####[facility] Edfdozduux[address] [place], [place] [address]DrSkylar Leal IG % 1.2 % Critically high 0.0-0.5 [facility] Comment on above: Performed By: #### C BC ####[facility] Hxrpuvpyxd[address] [place], [place] [address]DrSkylar Leal LYMPH # 0.7 103/ul Critically low 1.2-3.[address] [facility] Comment on above: Performed By: #### C BC ####[facility] Osnkzkztth[address] [place], [place] [address]DrSkylar Leal Lymphocytes/100 WBC (Bld) 4.8 % Critically low 20.5-60.0 [facility] Comment on above: Performed By: #### C BC ####[facility] [address]ofxclzskk[address] [place], [place] [address]DrSkylar Leal MANUAL DIFF REQ NO Normal [facility] Comment on above: Performed By: #### C BC ####[facility] Uupsdnzmig[address] [place], [place] [address]DrSkylar Leal MCH (RBC) [Entitic mass] 29.9 pg Normal 25.9-34.0 [facility] Comment on above: Performed By: #### C BC ####[facility] Fikewgjpkf[address] [place] [address]Dr. Farhat Leal MCHC (RBC) [Mass/Vol] 32.2 g/dL Normal 29.9-35.2 [facility] Comment on above: Performed By: #### C BC ####[facility] [address]ev[address]vljdx[address] [place] [address]DrSkylar Leal MCV (RBC) [Entitic vol] 92.9 fL Normal 80.0-94.0 [facility] Comment on above: Performed By: #### C BC ####[facility] Prwsprqqgs[address] [place], [place] [address]DrSkylar Leal MONO # 1.3 103/ul Critically high 0.3-0.8 [facility] Comment on above: Performed By: #### C BC ####[facility] Uavyfgpkty[address] [place], [place] [address]Dr. Farhat Leal Monocytes/100 WBC (Bld) 9.6 % Normal 1.7-12.0 [facility] Comment on above: Performed By: #### C BC ####[facility] Jydlrkyzyj[address] [place], [place] [address]DrSkylar Leal NEUT # 11.4 103/ul Critically high 1.4-6.5 The [facility] Comment on above: Performed By: #### C BC ####[facility] Vassxeltbe[address] [place], [place] [address]DrSkylar Leal Neutrophils/100 WBC (Bld) 83.9 % Critically high 43.0-75.0 [facility] Comment on above: Performed By: #### C BC ####[facility] [address]umjwgj[address] [place], [place] [address]DrSkylar Leal Platelet mean volume (Bld) [Entitic vol] 9.6 fL Normal 9.5-13.5 [facility] Comment on above: Performed By: #### C BC ####[facility] Gzuqtpiddn[address] [place], [place] [address]Dr. Farhat Leal PLT 395 103/ul Normal 150-450 [facility] Comment on above: Performed By: #### C BC ####[facility] [address]eczuwbya[address] [place] [address]Dr. Farhat Leal RBC 2.94 106/ul Critically low 4.70-6.10 [facility] Comment on above: Performed By: #### C BC ####[facility] Wqqmfqmpxz[address] [place] [address]Dr. Farhat Leal WBC 13.6 103/ul Critically high 4.0-11.0 [facility] Comment on above: Performed By: #### C BC ####[facility] Yldsdcgcpl[address] [place] [address]Dr. Farhat Leal CRPon 11-26-2021 CRP [Mass/Vol] mg/L Critically high <=1.0 [facility] Comment on above: Performed By: #### B INTERNET SALES ASSOCIATE, CRP, CMP ####[facility] Aqahlv[address]bp[address] [place] [address]Dr. Farhat Leal PROF 14(COMP METB)on 022 Albumin [Mass/Vol] 1.5 g/dL Critically low 3.4-5.0 [facility] Comment on above: Performed By: #### B INTERNET SALES ASSOCIATE, CRP, CMP ####[facility] Vueqvwdxkt[address] [place] [address]Dr. Farhat Leal Albumin/Globulin [Mass ratio] 0.4 {ratio} Normal [facility] Comment on above: Performed By: #### B INTERNET SALES ASSOCIATE, CRP, CMP ####[facility] Yjcpqxzpzf86[address] [place] [address]Dr. Farhat Leal ALP [Catalytic activity/Vol] 88 U/L Normal 46-116 [facility] Comment on above: Performed By: #### B INTERNET SALES ASSOCIATE, CRP, CMP ####[facility] Blgxfmkfmz[address] [place] [address]Dr. Farhat Leal ALT [Catalytic activity/Vol] 29 U/L Normal 16-63 [facility] Comment on above: Performed By: #### B INTERNET SALES ASSOCIATE, CRP, CMP ####[facility] Tffldijiit[address] [place] [address]Dr. Farhat Leal Anion gap [Moles/Vol] 13.3 mmol/L Normal [facility] Comment on above: Performed By: #### B INTERNET SALES ASSOCIATE, CRP, CMP ####[facility] Jjwstfstcl[address] [place] [address]Dr. Farhat Leal AST [Catalytic activity/Vol] 32 U/L Normal 15-37 [facility] Comment on above: Performed By: #### B INTERNET SALES ASSOCIATE, CRP, CMP ####[facility] Gadoxsasfx[address] [place] [address]Dr. Farhat Leal Bilirubin [Mass/Vol] 0.6 mg/dL Normal 0.2-1.0 [facility] Comment on above: Performed By: #### B INTERNET SALES ASSOCIATE, CRP, CMP ####[facility] Ldbkonjicw[address] [place], [place] [address]Dr. Farhat Leal Calcium [Mass/Vol] 8.0 mg/dL Critically low 8.5-10.1 [facility] Comment on above: Performed By: #### B INTERNET SALES ASSOCIATE, CRP, CMP ####[facility] Lxmomsipgh7[address] [place], [place] [address]Dr. Farhat Leal Chloride [Moles/Vol] 98 mmol/L Normal 98-107 [facility] Comment on above: Performed By: #### B INTERNET SALES ASSOCIATE, CRP, CMP ####[facility] Jwdcquopwe[address] [place], [place] [address]Dr. Farhat Leal CO2 [Moles/Vol] 23.7 mmol/L Normal 21.0-32.0 [facility] Comment on above: Performed By: #### B INTERNET SALES ASSOCIATE, CRP, CMP ####[facility] Gpwkescdgl[address] [place], [place] [address]Dr. Farhat Leal Creatinine [Mass/Vol] 2.08 mg/dL Critically high 0.70-1.30 [facility] Comment on above: Performed By: #### B INTERNET SALES ASSOCIATE, CRP, CMP ####[facility] Tuedefyxmi[address] [place] [address]Dr. Farhat Leal EGFR-AF ICELANDIC 38 mL/min/1.73m2 Critically low >=60 [facility] Comment on above: Performed By: #### B INTERNET SALES ASSOCIATE, CRP, CMP ####[facility] Fxhjxdeqzu6[address] [place], [place] [address]Dr. Farhat Leal EGFR-NON AF ICELANDIC 31 mL/min/1.73m2 Critically low >=60 [facility] Comment on above: Performed By: #### B INTERNET SALES ASSOCIATE, CRP, CMP ####[facility] Hromwmrtly[address] [place], [place] [address]Dr. Farhat Leal Globulin (S) [Mass/Vol] 3.7 g/dL Normal [facility] Comment on above: Performed By: #### B INTERNET SALES ASSOCIATE, CRP, CMP ####[facility] Ntilchlgfg9[address] [place], [place] [address]Dr. Farhat Leal Glucose [Mass/Vol] 315 mg/dL Critically high 74-106 [facility] Comment on above: Performed By: #### B INTERNET SALES ASSOCIATE, CRP, CMP ####[facility] Hplyxxhuoi06[address] [place], [place] [address]Dr. Farhat Leal Potassium [Moles/Vol] 4.0 mmol/L Normal 3.5-5.1 [facility] Comment on above: Performed By: #### B INTERNET SALES ASSOCIATE, CRP, CMP ####[facility] Ftkvtxharg[address] [place], [place] [address]Dr. Farhat Leal Protein [Mass/Vol] 5.2 g/dL Critically low 6.4-8.2 [facility] Comment on above: Performed By: #### B INTERNET SALES ASSOCIATE, CRP, CMP ####[facility] Nwevxmxgfm[address] [place], [place] [address]Dr. Farhat Leal Sodium [Moles/Vol] 131 mmol/L Critically low 136-145 [facility] Comment on above: Performed By: #### B INTERNET SALES ASSOCIATE, CRP, CMP ####[facility] Owwmydvjge[address] [place], [place] [address]Dr. Farhat Leal Urea nitrogen [Mass/Vol] 50.0 mg/dL Critically high 7.0-18.0 [facility] Comment on above: Performed By: #### B INTERNET SALES ASSOCIATE, CRP, CMP ####[facility] Ujizhewnxn[address] [place] [address]Dr. Farhat Leal Urea nitrogen/Creatinine [Mass ratio] 24.0 mg/mg Normal [facility] Comment on above: Performed By: #### B INTERNET SALES ASSOCIATE, CRP, CMP ####[facility] Nxpeviawne[address] [place] [address]Dr. Farhat Leal PROTIMEon 11-26-2021 INR Coag (PPP) [Relative time] 1.31 {INR} Normal [facility] Comment on above: Performed By: #### P T ####[facility] Lqeajhinyu[address] [place], [place] [address]Dr. Farhat Leal INR GUIDELINES SEE BELOW Normal [facility] Comment on above: Result Comment: MALINA RED INR: 2.0 - 3.0 CONDITIONS NOT LISTED BELOW 2.5 - 3.5 FOR PROSTHETIC HEART VALVE REPLACEMENT 2.5 - 3.5 RECURRENT THROMBOSIS Performed By: #### P T ####[facility] Yzzhcixxly099[address] [place], [place] [address]Dr. Faraht Leal PT Coag (PPP) [Time] 13.9 s Critically high 9.0-11.6 [facility] Comment on above: Performed By: #### P T ####[facility] Nmgamveocj[address] [place], [place] [address]Dr. Farhat Leal SED RATE [place] 2021 SED RATE 87 mm/hr Critically high <=20 [facility] Comment on above: Performed By: #### S EDR ####[facility] Lolsrsrkbp[address] [place], [place] [address]Dr. Farhat Leal BNPon 11-25-2021 Natriuretic peptide B (Bld) [Mass/Vol] 25111.0 pg/mL Critically high <=1,800.0 [facility] Comment on above: Performed By: #### C MP, BNP, CRP ####[facility] Gavgybursg[address] [place], [place] [address]Dr. Farhat Leal CBC AUTO DIFFon 11-25-2021 BASO # 0.0 103/ul Normal 0.0-0.1 [facility] Comment on above: Performed By: #### C BC ####[facility] Dgfnuztnrq7184 [place] [id number]. Farhat Leal Basophils/100 WBC (Bld) 0.4 % Normal 0.2-2.0 [facility] Comment on above: Performed By: #### C BC ####[facility] Ynfdunuojn30[address] [place] [address]Dr. Farhat Leal EO # 0.1 103/ul Normal 0.0-0.7 [facility] Comment on above: Performed By: #### C BC ####[facility] Xstpwfytwv[address] [place], [place] [address]Dr. Farhat Leal Eosinophils/100 WBC (Bld) 1.2 % Normal 0.9-7.0 [facility] Comment on above: Performed By: #### C BC ####[facility] Nqloonxycy[address] [place], [place] [address]Dr. Farhat Leal Erythrocyte distribution width (RBC) [Ratio] 13.7 % Normal 11.0-15.0 [facility] Comment on above: Performed By: #### C BC ####[facility] Coezbuvhun[address] [place], [place] [address]Dr. Farhat Leal Hematocrit (Bld) [Volume fraction] 29.6 % Critically low 42.0-54.0 [facility] Comment on above: Performed By: #### C BC ####[facility] Ilfksofbli[address] [place], [place] [address]Dr. Farhat Leal Hemoglobin (Bld) [Mass/Vol] 9.3 g/dL Critically low 14.0-18.0 [facility] Comment on above: Performed By: #### C BC ####[facility] Mtltvpfsbn[address] [place], [place] [address]Dr. Farhat Leal IG # 0.15 10e3/ul Critically high 0.00-0.03 [facility] Comment on above: Performed By: #### C BC ####[facility] Zsivnfswxb[address] [place], [place] [address]Dr. Farhat Leal IG % 1.4 % Critically high 0.0-0.5 [facility] Comment on above: Performed By: #### C BC ####[facility] Uzpbcgkvyx[address] [place] [address]Dr. Farhat Leal LYMPH # 0.8 103/ul Critically low 1.2-3.8 [facility] Comment on above: Performed By: #### C BC ####[facility] Aogvwlahdj[address] [place] [address]Dr. Farhat Leal Lymphocytes/100 WBC (Bld) 7.3 % Critically low 20.5-60.0 [facility] Comment on above: Performed By: #### C BC ####[facility] Mkbgfwnfzs[address] [place] [address]Dr. Farhat Leal MANUAL DIFF REQ NO Normal [facility] Comment on above: Performed By: #### C BC ####[facility] Aycxht[address]mn[address] [place], [place] [address]Dr. Farhat Leal MCH (RBC) [Entitic mass] 29.3 pg Normal 25.9-34.0 [facility] Comment on above: Performed By: #### C BC ####[facility] Dnizopioaq[address] [place], [place] [address]Dr. Farhat Leal MCHC (RBC) [Mass/Vol] 31.4 g/dL Normal 29.9-35.2 [facility] Comment on above: Performed By: #### C BC ####[facility] Xfihnicklh[address] [place] [address]Dr. Farhat Leal MCV (RBC) [Entitic vol] 93.4 fL Normal 80.0-94.0 [facility] Comment on above: Performed By: #### C BC ####[facility] [address]asiqahbq[address] [place], [place] [address]Dr. Farhat Leal MONO # 1.3 103/ul Critically high 0.3-0.8 [facility] Comment on above: Performed By: #### C BC ####[facility] Dwuoqsymsd87[address] [place] [id number]. Farhat Leal Monocytes/100 WBC (Bld) 12.3 % Critically high 1.7-12.0 [facility] Comment on above: Performed By: #### C BC ####[facility] J[address]gywg[address] [place] [address]Dr. Madelynlorri Leal NEUT # 8.4 103/ul Critically high 1.4-6.5 [facility] Comment on above: Performed By: #### C BC ####[facility] Jjwxyntudj[address] [place] [address]DrSkylar Leal Neutrophils/100 WBC (Bld) 77.4 % Critically high 43.0-75.0 [facility] Comment on above: Performed By: #### C BC ####[facility] L[address]ewbrnek[address] [place] [address]DrSkylar Leal Platelet mean volume (Bld) [Entitic vol] 9.8 fL Normal 9.5-13.5 [facility] Comment on above: Performed By: #### C BC ####[facility] R[address]ewlmsci[address] [place], [place] [address]Dr. Farhat Leal PLT 390 103/ul Normal 150-450 [facility] Comment on above: Performed By: #### C BC ####[facility] Msbxuxupgn[address] [place], [place] [address]Dr. Farhat Leal RBC 3.17 106/ul Critically low 4.70-6.10 [facility] Comment on above: Performed By: #### C BC ####[facility] [address]zictfsi[address] [place] [address]DrSkylar Leal WBC 10.9 103/ul Normal 4.0-11.0 [facility] Comment on above: Performed By: #### C BC ####[facility] Zpzhqswzhm[address] [place] [id number] Leal CRPon 11-25-2021 CRP 27.2 mg/dL Critically high <=1.0 [facility] Comment on above: Performed By: #### C MP, BNP, CRP ####[facility] [address]scrtskaf[address] [place] [address]DrSkylar Leal PROF 14(COMP METB)on 022 Albumin [Mass/Vol] 1.5 g/dL Critically low 3.4-5.0 [facility] Comment on above: Performed By: #### C MP, BNP, CRP ####[facility] [address]weceaet[address] [place] [address]Dr. Farhat Leal Albumin/Globulin [Mass ratio] 0.4 {ratio} Normal [facility] Comment on above: Performed By: #### C MP, BNP, CRP ####[facility] Trfstediha[address] [place] [address]Dr. Farhat Leal ALP [Catalytic activity/Vol] 86 U/L Normal 46-116 [facility] Comment on above: Performed By: #### C MP, BNP, CRP ####[facility] [address]ym[address]ldvz[address] [place] [address]Dr. Farhat Leal ALT [Catalytic activity/Vol] 34 U/L Normal 16-63 [facility] Comment on above: Performed By: #### C MP, BNP, CRP ####[facility] [address]ls[address] [place] [address]Dr. Farhat Leal Anion gap [Moles/Vol] 17.8 mmol/L Normal [facility] Comment on above: Performed By: #### C MP, BNP, CRP ####[facility] Aongpwulof[address] [place] [address]Dr. Farhat Leal AST [Catalytic activity/Vol] 48 U/L Critically high 15-37 [facility] Comment on above: Performed By: #### C MP, BNP, CRP ####[facility] Mcedqbdnpd[address] [place] [address]Dr. Farhat Leal Bilirubin [Mass/Vol] 0.8 mg/dL Normal 0.2-1.0 [facility] Comment on above: Performed By: #### C MP, BNP, CRP ####[facility] Ulstqjcbyp[address] [place] [address]Dr. Farhat Leal Calcium [Mass/Vol] 8.3 mg/dL Critically low 8.5-10.1 [facility] Comment on above: Performed By: #### C MP, BNP, CRP ####[facility] Konskzorsd[address] [place] [address]Dr. Farhat Leal Chloride [Moles/Vol] 97 mmol/L Critically low 98-107 [facility] Comment on above: Performed By: #### C MP, BNP, CRP ####[facility] Uvxrqbbmwm[address] [place] [address]Dr. Farhat Leal CO2 [Moles/Vol] 23.0 mmol/L Normal 21.0-32.0 [facility] Comment on above: Performed By: #### C MP, BNP, CRP ####[facility] Djfzbunood[address] [place], [place] [address]Dr. Farhat Elvis Creatinine [Mass/Vol] 1.68 mg/dL Critically high 0.70-1.30 [facility] Comment on above: Performed By: #### C MP, BNP, CRP ####[facility] Oeeduaxduv43[address] [place], [place] [address]Dr. Madelynlorri Elvis EGFR-AF ICELANDIC 48 mL/min/1.73m2 Critically low >=60 [facility] Comment on above: Performed By: #### C MP, BNP, CRP ####[facility] Iravhjvzrd[address] [place], [place] [address]Dr. Farhat Elvis EGFR-NON AF ICELANDIC 40 mL/min/1.73m2 Critically low >=60 [facility] Comment on above: Performed By: #### C MP, BNP, CRP ####[facility] Akmepoxnky[address] [place], [place] [address]Dr. Farhat Elvis Globulin (S) [Mass/Vol] 3.9 g/dL Normal [facility] Comment on above: Performed By: #### C MP, BNP, CRP ####[facility] Xookupqzfd25[address] [place], [place] [address]Dr. Farhat Leal Glucose [Mass/Vol] 282 mg/dL Critically high 74-106 [facility] Comment on above: Performed By: #### C MP, BNP, CRP ####[facility] Hfkpbwusai289[address] [place], [place] [address]Dr. Farhat Leal Potassium [Moles/Vol] 4.8 mmol/L Normal 3.5-5.1 [facility] Comment on above: Performed By: #### C MP, BNP, CRP ####[facility] Xoltdgyssp[address] [place] [address]Dr. Farhat Leal Protein [Mass/Vol] 5.4 g/dL Critically low 6.4-8.2 [facility] Comment on above: Performed By: #### C MP, BNP, CRP ####[facility] Ydoluaipvb[address] [place], [place] [address]Dr. Farhat Leal Sodium [Moles/Vol] 133 mmol/L Critically low 136-145 [facility] Comment on above: Performed By: #### C MP, BNP, CRP ####[facility] Xhsmqusqou[address] [place], [place] [address]Dr. Farhat Leal Urea nitrogen [Mass/Vol] 40.0 mg/dL Critically high 7.0-18.0 [facility] Comment on above: Performed By: #### C MP, BNP, CRP ####[facility] Ncgainhzxh[address] [place], [place] [address]Dr. Farhat Leal Urea nitrogen/Creatinine [Mass ratio] 23.8 mg/mg Normal [facility] Comment on above: Performed By: #### C MP, BNP, CRP ####[facility] Cujmnpwgdc2945[address] [place], [place] [address]Dr. Farhat Leal PROTIMEon 11-25-2021 INR Coag (PPP) [Relative time] 1.48 {INR} Normal [facility] Comment on above: Performed By: #### P T ####[facility] Cxtrtngkkz[address] [place], [place] [address]Dr. Farhat Leal INR GUIDELINES SEE BELOW Normal [facility] Comment on above: Result Comment: MALINA RED INR: 2.0 - 3.0 CONDITIONS NOT LISTED BELOW 2.5 - 3.5 FOR PROSTHETIC HEART VALVE REPLACEMENT 2.5 - 3.5 RECURRENT THROMBOSIS Performed By: #### P T ####[facility] Neunrsisyb[address] [place], [place] [address]Dr. Farhat Leal PT Coag (PPP) [Time] 15.6 s Critically high 9.0-11.6 [facility] Comment on above: Performed By: #### P T ####[facility] Dghybvjtuy4[address] [place], [place] [address]Dr. Farhat Leal SED RATE WESTERGRENon 2021 SED RATE 76 mm/hr Critically high <=20 [facility] Comment on above: Performed By: #### S EDR ####[facility] Kbjdshbbuk[address] [place], [place] [address]Dr. Farhat Leal BNPon 11-24-2021 Natriuretic peptide B (Bld) [Mass/Vol] 40213.0 pg/mL Critically high <=1,800.0 [facility] Comment on above: Performed By: #### B INTERNET SALES ASSOCIATE, CMP, CRP ####[facility] Svnrtuhqbi7367[address] [place], [place] [address]Dr. Farhat Leal CBC AUTO DIFFon 11-24-2021 BASO # 0.0 103/ul Normal 0.0-0.1 [facility] Comment on above: Performed By: #### C BC ####[facility] Duukzebbza[address] [place], [place] [address]Dr. Farhat Elvis Basophils/100 WBC (Bld) 0.3 % Normal 0.2-2.0 [facility] Comment on above: Performed By: #### C BC ####[facility] Ruuwixnkwx45[address] [place], [place] [address]Dr. Farhat Leal EO # 0.2 103/ul Normal 0.0-0.7 [facility] Comment on above: Performed By: #### C BC ####[facility] Xkuktlippv[address] [place], [place] [address]Dr. Madelynlorri Leal Eosinophils/100 WBC (Bld) 1.2 % Normal 0.9-7.0 [facility] Comment on above: Performed By: #### C BC ####[facility] Cxxuimlgcl[address] [place], [place] [address]Dr. Farhat Leal Erythrocyte distribution width (RBC) [Ratio] 13.5 % Normal 11.0-15.0 [facility] Comment on above: Performed By: #### C BC ####[facility] [address]zv[address]uq[address] [place] [address]Dr. Farhat Leal Hematocrit (Bld) [Volume fraction] 31.1 % Critically low 42.0-54.0 [facility] Comment on above: Performed By: #### C BC ####[facility] [address]apg[address] [place] [address]Dr. Farhat Leal Hemoglobin (Bld) [Mass/Vol] 10.0 g/dL Critically low 14.0-18.0 [facility] Comment on above: Performed By: #### C BC ####[facility] [address]vf[address]jpcm[address] [place] [address]Dr. Farhat Leal IG # 0.13 10e3/ul Critically high 0.00-0.03 [facility] Comment on above: Performed By: #### C BC ####[facility] Acezjqtmxi[address] [place] [address]Dr. Farhat Leal IG % 1.0 % Critically high 0.0-0.5 [facility] Comment on above: Performed By: #### C BC ####[facility] Xagsnftwtr[address] [place], [place] [address]DrSkylar Farhat Leal LYMPH # 0.7 103/ul Critically low 1.2-3.8 [facility] Comment on above: Performed By: #### C BC ####[facility] [address]zt[address] [place] [address]DrSkylar Farhat Elvis Lymphocytes/100 WBC (Bld) 4.9 % Critically low 20.5-60.0 [facility] Comment on above: Performed By: #### C BC ####[facility] [address]xmdho[address] [place] [address]DrSkylar Madelynlorri Leal MANUAL DIFF REQ NO Normal [facility] Comment on above: Performed By: #### C BC ####[facility] Mrbvaxqglg[address] [place] [address]DrSkylar Madelynlorri Leal MCH (RBC) [Entitic mass] 29.6 pg Normal 25.9-34.0 [facility] Comment on above: Performed By: #### C BC ####[facility] [address] [place] [id number]. Farhat Leal MCHC (RBC) [Mass/Vol] 32.2 g/dL Normal 29.9-35.2 [facility] Comment on above: Performed By: #### C BC ####[facility] [address]qabgkrvi[address] [place] [id number] Farhat Elvis MCV (RBC) [Entitic vol] 92.0 fL Normal 80.0-94.0 [facility] Comment on above: Performed By: #### C BC ####[facility] Nifrgigkhv[address] [place] [id number] Leal MONO # 1.3 103/ul Critically high 0.3-0.8 [facility] Comment on above: Performed By: #### C BC ####[facility] [address]ix[address]kdrec[address] [place] [address]Dr. Farhat Leal Monocytes/100 WBC (Bld) 9.6 % Normal 1.7-12.0 [facility] Comment on above: Performed By: #### C BC ####[facility] N[address] [place], [place] [id number] Joshilorri Elvis NEUT # 11.2 103/ul Critically high 1.4-6.5 [facility] Comment on above: Performed By: #### C BC ####[facility] Hrmxpxafeh[address] [place], [place] [id number] Leal Neutrophils/100 WBC (Bld) 83.0 % Critically high 43.0-75.0 [facility] Comment on above: Performed By: #### C BC ####[facility] Rxvqxrqzjo[address] [place], [place] [id number] Leal Platelet mean volume (Bld) [Entitic vol] 9.5 fL Normal 9.5-13.5 [facility] Comment on above: Performed By: #### C BC ####[facility] Nbp[address]zds[address] [place], [place] [id number] Leal PLT 395 103/ul Normal 150-450 [facility] Comment on above: Performed By: #### C BC ####[facility] Gih[address]ylwcu4[address] [place] [id number]. Farhat Leal RBC 3.38 106/ul Critically low 4.70-6.10 [facility] Comment on above: Performed By: #### C BC ####[facility] Roqwwciiol[address] [place] [id number]. Farhat Leal WBC 13.4 103/ul Critically high 4.0-11.0 The [facility] Comment on above: Performed By: #### C BC ####[facility] Pbltematqc2712 [place] [id number]. Farhat Leal CRPon 11-24-2021 CRP 27.8 mg/dL Critically high <=1.0 [facility] Comment on above: Performed By: #### B INTERNET SALES ASSOCIATE, CMP, CRP ####[facility] Ctqvkfcbbl[address] [place], [place] [id number]. Farhat Leal CULTURE ANAEROBICon 11-25-19 22 CULTURE ANAEROBIC Culture Observations : NO GROWTH OF ANAEROBES AT 72 HOURS. Normal The [facility] Comment on above: Performed By: #### A NACX ####[facility] V[address]shbkajb[address] [place], [place] [address]Dr. Farhat Leal CULTURE URINEon 11-24-2021 CULTURE URINE Culture Observations : NO GROWTH. Normal [facility] Comment on above: Performed By: #### U RCX ####[facility] Qdminfoknk1890 [place] [id number]. Farhat Leal ECHOCARDIO M/2D COMPLETEon 1 ECHOCARDIO M/2D COMPLETE Normal [facility] ER URINE PROFILEon 2 Bilirubin Ql (U) Negative Normal NEGATIVE The [facility] Comment on above: Performed By: #### E RUR ####[facility] Hbzkvksbed[address] [place], [place] [address]Dr. Farhat Elvis Clarity (U) CLEAR Normal CLEAR [facility] Comment on above: Performed By: #### E RUR ####[facility] Ktfflljmpl[address] [place], [place] [address]Dr. Farhat Leal Color (U) YELLOW Normal YELLOW [facility] Comment on above: Performed By: #### E RUR ####[facility] Ddwgqefkhk[address] [place], [place] [address]Dr. Farhat Leal ERUAHD A micrscopic examination will be performed if indicated. Normal [facility] Comment on above: Performed By: #### E RUR ####[facility] Ndxgdtsqba[address] [place], [place] [address]Dr. Farhat Leal Glucose Ql (U) Negative Normal NEGATIVE [facility] Comment on above: Performed By: #### E RUR ####[facility] Spnktvrxbk8536[address] [place], [place] [address]Dr. Farhat Leal Hemoglobin Ql (U) Negative Normal NEGATIVE [facility] Comment on above: Performed By: #### E RUR ####[facility] Qwaqtehuyx[address] [place], [place] [address]Dr. Farhat Leal Ketones Ql (U) TRACE Abnormal NEGATIVE [facility] Comment on above: Performed By: #### E RUR ####[facility] Mtfhkncfbn130[address] [place], [place] [address]Dr. Farhat Leal LEUKOCYTES Negative Normal NEGATIVE [facility] Comment on above: Performed By: #### E RUR ####[facility] Tnnwjglfln[address] [place], [place] [address]Dr. Farhat Leal Nitrite Ql (U) Negative Normal NEGATIVE [facility] Comment on above: Performed By: #### E RUR ####[facility] Apruocivnc[address] [place], [place] [address]Dr. Farhat Leal pH (U) 5.5 [pH] Normal 5-9 [facility] Comment on above: Performed By: #### E RUR ####[facility] Nhabqbnxdp029[address] [place], [place] [address]Dr. Farhat Leal SPEC GRAVITY 1.015 Normal 1.005-<=1.02 5 [facility] Comment on above: Performed By: #### E RUR ####[facility] Bbkwrpaqvh8969[address] [place], [place] [address]Dr. Farhat Leal UA PROTEIN Negative Normal NEGATIVE/ TRACE The [facility] Comment on above: Performed By: #### E RUR ####[facility] Yptizybmbq468[address] [place], [place] [address]Dr. Farhat Leal UR MICRO IND NOT INDICATED Normal [facility] Comment on above: Performed By: #### E RUR ####[facility] Blyphdhrvm[address] [place], [place] [address]Dr. Farhat Leal Urobilinogen Qn (U) 0.2 {Boyd'U}/dL Normal 0.2 - 1. 0 [facility] Comment on above: Performed By: #### E RUR ####[facility] Itodjqcdro[address] [place], [place] [address]Dr. Farhat Leal GRAM STAINon 11-24-2021 COMMENTS NO ORGANISMS OBSERVED Normal [facility] Comment on above: Performed By: #### G STAIN ####[facility] Wccrjzreef[address] [place], [place] [address]Dr. Farhat Leal DIPHTHEROIDS Normal [facility] Comment on above: Performed By: #### G STAIN ####[facility] Qsmikjigmt35[address] [place], [place] [address]Dr. Farhat Leal EPITHELIALS Normal [facility] Comment on above: Performed By: #### G STAIN ####[facility] Sempwtdleg18[address] [place], [place] [address]Dr. Farhat Leal FUNGAL ELEMENTS Normal [facility] Comment on above: Performed By: #### G STAIN ####[facility] Mcacqzqdkv7[address] [place], [place] [address]Dr. Farhat Leal GRAM NEG BACILLI FEW Normal [facility] Comment on above: Performed By: #### G STAIN ####[facility] Ahzdiqvzgh[address] [place], [place] [address]Dr. Farhat Leal GRAM NEG BACILLI Normal [facility] Comment on above: Performed By: #### G STAIN ####[facility] Jhiclybmyj8[address] [place], [place] [address]Dr. Farhat Leal GRAM NEG DIPPLOCOCCI Normal [facility] Comment on above: Performed By: #### G STAIN ####[facility] Mfghawmezw26[address] [place] [id number]. Farhat Leal GRAM POS BACILLI Normal [facility] Comment on above: Performed By: #### G STAIN ####[facility] Ojfzubyinj[address] [place] [address]Dr. Farhat Leal GRAM POSITIVE COCCI Normal The [facility] Comment on above: Performed By: #### G STAIN ####[facility] [address]uf[address] [place] [address]Dr. Farhat Leal GRAM POSITIVE COCCI FEW Normal [facility] Comment on above: Performed By: #### G STAIN ####[facility] Cjcgebxyfi[address] [place], [place] [address]Dr. Farhat Leal GRAM STAIN SOURCE #1 Rt foot abscess Normal [facility] Comment on above: Performed By: #### G STAIN ####[facility] Wrgnlrhnnm[address] [place], [place] [address]Dr. Farhat Leal GRAM STAIN SOURCE #2 Rt foot abscess Normal [facility] Comment on above: Performed By: #### G STAIN ####[facility] Gsfysegbai[address] [place], [place] [address]Dr. Farhat Leal GRAM STAIN SOURCE RT CALCANEOUS Normal [facility] Comment on above: Performed By: #### G STAIN ####[facility] [address]wonbqbtr[address] [place], [place] [address]Dr. Farhat Leal GRAM STAIN SOURCE RT ACHILLES TENDON Normal [facility] Comment on above: Performed By: #### G STAIN ####[facility] Pqxwbmeztj5[address] [place] [address]Dr. Farhat Leal GS_DIPTH Normal [facility] Comment on above: Performed By: #### G STAIN ####[facility] Cxhqdoswiy[address] [place], [place] [address]Dr. Farhat Leal WBC NONE SEEN Normal [facility] Comment on above: Performed By: #### G STAIN ####[facility] Qithoshhxo[address] [place] [address]Dr. Farhat Leal WBC RARE Normal [facility] Comment on above: Performed By: #### G STAIN ####[facility] Mcnioavkbp[address] [place] [address]Dr. Farhat Leal POINT OF CARE GLUCOSEon 11-15 0 Glucose [Mass/Vol] 236 mg/dL Critically high 74-106 [facility] Comment on above: Performed By: #### P OCGLUC ####[facility] Fetmqfdrbr[address] [place] [address]Dr. Farhat Leal Glucose [Mass/Vol] 331 mg/dL Critically high 74-106 [facility] Comment on above: Performed By: #### P OCGLUC ####[facility] Kefryatdfo[address] [place] [address]Dr. Farhat Leal PROF 14(COMP METB)on 022 Albumin [Mass/Vol] 1.6 g/dL Critically low 3.4-5.0 [facility] Comment on above: Performed By: #### B INTERNET SALES ASSOCIATE, CMP, CRP ####[facility] Evywjbiapq[address] [place] [address]Dr. Farhat Leal Albumin/Globulin [Mass ratio] 0.4 {ratio} Normal [facility] Comment on above: Performed By: #### B INTERNET SALES ASSOCIATE, CMP, CRP ####[facility] Ucxjktyoff[address] [place], [place] [address]Dr. Farhat Leal ALP [Catalytic activity/Vol] 94 U/L Normal 46-116 [facility] Comment on above: Performed By: #### B INTERNET SALES ASSOCIATE, CMP, CRP ####[facility] T[address]jcjdfgan[address] [place] [address]Dr. Frahat Leal ALT [Catalytic activity/Vol] 49 U/L Normal 16-63 [facility] Comment on above: Performed By: #### B INTERNET SALES ASSOCIATE, CMP, CRP ####[facility] Velmhrdstq[address] [place] [address]Dr. Farhat Leal Anion gap [Moles/Vol] 12.5 mmol/L Normal [facility] Comment on above: Performed By: #### B INTERNET SALES ASSOCIATE, CMP, CRP ####[facility] Ftjuqxdeeu[address] [place] [address]Dr. Farhat Leal AST [Catalytic activity/Vol] 102 U/L Critically high 15-37 [facility] Comment on above: Performed By: #### B INTERNET SALES ASSOCIATE, CMP, CRP ####[facility] Gmmwhcrhgm[address] [place] [address]Dr. Farhat Leal Bilirubin [Mass/Vol] 0.8 mg/dL Normal 0.2-1.0 [facility] Comment on above: Performed By: #### B INTERNET SALES ASSOCIATE, CMP, CRP ####[facility] Klseklkhdb[address] [place], [place] [address]Dr. Farhat Leal Calcium [Mass/Vol] 8.4 mg/dL Critically low 8.5-10.1 Th e [facility] Comment on above: Performed By: #### B INTERNET SALES ASSOCIATE, CMP, CRP ####[facility] Rfvrkkrghc[address] [place], [place] [address]Dr. Farhat Leal Chloride [Moles/Vol] 96 mmol/L Critically low 98-107 [facility] Comment on above: Performed By: #### B INTERNET SALES ASSOCIATE, CMP, CRP ####[facility] Unfihgepye[address] [place], [place] [address]Dr. Farhat Leal CO2 [Moles/Vol] 24.8 mmol/L Normal 21.0-32.0 [facility] Comment on above: Performed By: #### B INTERNET SALES ASSOCIATE, CMP, CRP ####[facility] Wmgutrstyn[address] [place], [place] [address]Dr. Farhat Leal Creatinine [Mass/Vol] 1.36 mg/dL Critically high 0.70-1.30 [facility] Comment on above: Performed By: #### B INTERNET SALES ASSOCIATE, CMP, CRP ####[facility] [address]esysonnuq[address] [place] [address]Dr. Farhat Leal EGFR-AF ICELANDIC >60 Normal >=60 [facility] Comment on above: Performed By: #### B INTERNET SALES ASSOCIATE, CMP, CRP ####[facility] Z[address]pejtbqvo[address] [place] [address]Dr. Farhat Leal EGFR-NON AF ICELANDIC 51 mL/min/1.73m2 Critically low >=60 [facility] Comment on above: Performed By: #### B INTERNET SALES ASSOCIATE, CMP, CRP ####[facility] Penxmxunmh[address] [place] [address]Dr. Farhat Leal Globulin (S) [Mass/Vol] 4.1 g/dL Normal [facility] Comment on above: Performed By: #### B INTERNET SALES ASSOCIATE, CMP, CRP ####[facility] Rueadkwfgd[address] [place] [address]Dr. Farhat Leal Glucose [Mass/Vol] 204 mg/dL Critically high 74-106 [facility] Comment on above: Performed By: #### B INTERNET SALES ASSOCIATE, CMP, CRP ####[facility] Fqiqbgacrb[address] [place] [address]Dr. Farhat Leal Potassium [Moles/Vol] 4.3 mmol/L Normal 3.5-5.1 [facility] Comment on above: Performed By: #### B INTERNET SALES ASSOCIATE, CMP, CRP ####[facility] Onntibigkh7[address] [place], [place] [address]Dr. Farhat Leal Protein [Mass/Vol] 5.7 g/dL Critically low 6.4-8.2 [facility] Comment on above: Performed By: #### B INTERNET SALES ASSOCIATE, CMP, CRP ####[facility] Zepdfubcai85[address] [place], [place] [address]Dr. Farhat Leal Sodium [Moles/Vol] 129 mmol/L Critically low 136-145 [facility] Comment on above: Performed By: #### B INTERNET SALES ASSOCIATE, CMP, CRP ####[facility] Jhqzyfsdlb[address] [place], [place] [address]Dr. Farhat Leal Urea nitrogen [Mass/Vol] 41.0 mg/dL Critically high 7.0-18.0 [facility] Comment on above: Performed By: #### B INTERNET SALES ASSOCIATE, CMP, CRP ####[facility] Kxallnrpon325[address] [place], [place] [address]Dr. Farhat Leal Urea nitrogen/Creatinine [Mass ratio] 30.1 mg/mg Normal [facility] Comment on above: Performed By: #### B INTERNET SALES ASSOCIATE, CMP, CRP ####[facility] Mhmoifubej942[address] [place], [place] [address]Dr. Farhat Leal PROTIMEon 11-24-2021 INR Coag (PPP) [Relative time] 2.20 {INR} Normal [facility] Comment on above: Performed By: #### P T ####[facility] [address] [place] [address]Dr. Farhat Leal INR GUIDELINES SEE BELOW Normal The [facility] Comment on above: Result Comment: MALINA RED INR: 2.0 - 3.0 CONDITIONS NOT LISTED BELOW 2.5 - 3.5 FOR PROSTHETIC HEART VALVE REPLACEMENT 2.5 - 3.5 RECURRENT THROMBOSIS Performed By: #### P T ####[facility] Ylrzvjhizc01[address] [place] [address]Dr. Farhat Leal PT Coag (PPP) [Time] 22.6 s Critically high 9.0-11.6 [facility] Comment on above: Performed By: #### P T ####[facility] Jfwteyepzv[address]24[address] [place], [place] [address]Dr. Farhat Leal SED RATE [facility] 2021 SED RATE 80 mm/hr Critically high <=20 [facility] Comment on above: Performed By: #### S EDR ####[facility] Jjheampbsn93[address] [place], [place] [address]Dr. Farhat Leal BLOOD CULTURE ID PANELon A. baumannii Not detected Normal NOT DETECTED The [facility] Comment on above: Performed By: #### B CID2 ####[facility] Bpuhhybwdm[address] [place], [place] [address]Dr. Farhat Leal Bacteriodes fragilis Not detected Normal NOT DETECTED The [facility] Comment on above: Performed By: #### B CID2 ####[facility] Ixlnaqfrev[address] [place] [address]Dr. Farhat Leal BCID CONTROLS PASSED Normal The [facility] Comment on above: Performed By: #### B CID2 ####[facility] Sgckdbrhti[address] [place], [place] [address]Dr. Farhat Leal BCIDBTHD BLOOD CULTURE BOTTLE INFORMATION Normal The [facility] Comment on above: Performed By: #### B CID2 ####[facility] L[address]clgezw[address] [place], [place] [id number]. Yilorri Leal BCIDHD1 ANTIMICROBIAL RESISTANCE GENES Normal The [facility] Comment on above: Performed By: #### B CID2 ####[facility] Ompbbntcna40[address] [place] [address]Dr. Yilorri Leal BCIDHD2 SEE BELOW Normal The [facility] Comment on above: Result Comment: Note : Antimicrobial resitance can occur via multiple mechanisms. A Not Detected result for the [employer] antomicrobial resistance gene assays does not indicate antimicrobial susceptibility. Subculturing is required for species identification and susceptibility testing of isolates. Performed By: #### B CID2 ####[facility] Tnsbuvliwb[address] [place] [address]Dr. Yilorri Leal BCIDHD3 Positive Normal The [facility] Comment on above: Performed By: #### B CID2 ####[facility] Knzdcuzrxg23[address] [place] [address]Dr. Yilorri Leal BCIDHD4 Negative Normal The [facility] Comment on above: Performed By: #### B CID2 ####[facility] Kuoftwtxfk[address] [place], [place] [address]Dr. Yilorri Leal BCIDHD5 YEAST Normal The [facility] Comment on above: Performed By: #### B CID2 ####[facility] Gkooxfohad9339[address] [place], [place] [address]Dr. Yilan Leal Bottle Set: Set 1 Normal The [facility] Comment on above: Performed By: #### B CID2 ####[facility] Etqzhofgxa[address] [place] [address]Dr. Farhat Leal Bottle: Aerobic Normal The [facility] Comment on above: Performed By: #### B CID2 ####[facility] Cophnjytpx20[address] [place] [address]Dr. Yilorri Leal C. neoformans/gattii Not detected Normal NOT DETECTED The [facility] Comment on above: Performed By: #### B CID2 ####[facility] Izpocrwzev25[address] [place] [address]Dr. Yilorri Leal Disha albicans Not detected Normal NOT DETECTED The [facility] Comment on above: Performed By: #### B CID2 ####[facility] Fuvitbjmdm9422 [place] [id number]. Yilan Leal Disha auris Not detected Normal NOT DETECTED The [facility] Comment on above: Performed By: #### B CID2 ####[facility] Bzplgojjih0573 [place] [id number]. Yilan Leal Disha glabrata Not detected Normal NOT DETECTED The [facility] Comment on above: Performed By: #### B CID2 ####[facility] Ixqluexjvw7495 [place] [id number]. Yilan Leal Disha Krusei Not detected Normal NOT DETECTED The [facility] Comment on above: Performed By: #### B CID2 ####[facility] Iyqefdsuvz[address] [place], [place] [address]Dr. Yilan Leal Disha Parapsilosis Not detected Normal NOT DETECTED The [facility] Comment on above: Performed By: #### B CID2 ####[facility] Yrxwmzzmty70[address] [place] [address]Dr. Yilorri Leal Disha Tropicalis Not detected Normal NOT DETECTED [facility] Comment on above: Performed By: #### B CID2 ####[facility] Tpghnabnot040[address] [place], [place] [address]Dr. Farhat Leal CTX-M Resistant Gene Not Applicable Normal NOT DETECTE D [facility] Comment on above: Performed By: #### B CID2 ####[facility] Oxqtmpabsc4088 [place] [address]Dr. Yilorri Leal E. Cloacae complex Not detected Normal NOT DETECTED [facility] Comment on above: Performed By: #### B CID2 ####[facility] Qnjezcbezn0027 [place] [id number]. Yilan Leal E. faecalis Not detected Normal NOT DETECTED The [facility] Comment on above: Performed By: #### B CID2 ####[facility] Nxkezhaect788[address] [place], [place] [address]Dr. Yilorri Leal E. faecium Not detected Normal NOT DETECTED The [facility] Comment on above: Performed By: #### B CID2 ####[facility] Xilirmaxqa028[address] [place] [address]Dr. Madelynlorri Leal Enterobacteriaceae Not detected Normal NOT DETECTED [facility] Comment on above: Performed By: #### B CID2 ####[facility] Ftmuiugpeh435[address] [place], [place] [address]Dr. Farhat Leal Escherichia coli Not detected Normal NOT DETECTED The [facility] Comment on above: Performed By: #### B CID2 ####[facility] Ahwvuqwwok022[address] [place], [place] [address]Dr. Farhat Leal H. influenzae Not detected Normal NOT DETECTED The [facility] Comment on above: Performed By: #### B CID2 ####[facility] Pyfwgrcjlr0129[address] [place], [place] [address]Dr. Farhat Leal IMP Resistant Gene Not Applicable Normal NOT DETECTED [facility] Comment on above: Performed By: #### B CID2 ####[facility] Uindwweksf6340[address] [place], [place] [address]Dr. Farhat Leal K. oxytoca Not detected Normal NOT DETECTED The [facility] Comment on above: Performed By: #### B CID2 ####[facility] Pxpdjhrcye7125[address] [place], [place] [address]Dr. Madelynlorri Leal K. pneumoniae Not detected Normal NOT DETECTED The [facility] Comment on above: Performed By: #### B CID2 ####[facility] Uowbgcxmhy4757[address] [place], [place] [address]Dr. Madelynlorri Leal Klebsiella aerogenes Not detected Normal NOT DETECTED The [facility] Comment on above: Performed By: #### B CID2 ####[facility] Nvmwknqxbc37[address] [place], [place] [address]Dr. Farhat Leal KPC Resistant Gene Not Applicable Normal NOT DETECTED The [facility] Comment on above: Performed By: #### B CID2 ####[facility] Xzzmpztjik8214[address] [place], [place] [address]Dr. Farhat Leal List. monocytogenes Not detected Normal NOT DETECTED [facility] Comment on above: Performed By: #### B CID2 ####[facility] Bxtbcqdcwr828[address] [place], [place] [address]Dr. Farhat Leal Mcr-1 Resistant Gene Not Applicable Normal NOT DETECTE D The [facility] Comment on above: Performed By: #### B CID2 ####[facility] Jityszpyqd5647[address] [place], [place] [address]Dr. Farhat Leal mecA/C Not Applicable Normal NOT DETECTED The [facility] Comment on above: Performed By: #### B CID2 ####[facility] Miuslytbcu6007[address] [place], [place] [address]Dr. Farhat Leal mecA/C MREJ Detected Abnormal NOT DETECTED The [facility] Comment on above: Performed By: #### B CID2 ####[facility] Jkiwlfkqhy[address] [place], [place] [address]Dr. Farhat Leal N. meningitidis Not detected Normal NOT DETECTED The [facility] Comment on above: Performed By: #### B CID2 ####[facility] Ihzrusaaxm3223[address] [place], [place] [address]Dr. Farhat Leal NDM Resistant Gene Not Applicable Normal NOT DETECTED The [facility] Comment on above: Performed By: #### B CID2 ####[facility] Pqquyivqkv8813[address] [place], [place] [address]Dr. Farhat Leal Oxa-48-like Not Applicable Normal NOT DETECTED The [facility] Comment on above: Performed By: #### B CID2 ####[facility] Xpjjjmczkz500[address] [place], [place] [address]Dr. Farhat Leal Proteus Not detected Normal NOT DETECTED The [facility] Comment on above: Performed By: #### B CID2 ####[facility] Ldomektaca967[address] [place], [place] [address]Dr. Farhat Leal Pseud. aeruginosa Not detected Normal NOT DETECTED The [facility] Comment on above: Performed By: #### B CID2 ####[facility] Qeerypuigh805[address] [place], [place] [address]Dr. Farhat Leal S. maltophilia Not detected Normal NOT DETECTED The [facility] Comment on above: Performed By: #### B CID2 ####[facility] Nmrhjsniln3935[address] [place], [place] [address]Dr. Farhat Leal Salmonella Not detected Normal NOT DETECTED The [facility] Comment on above: Performed By: #### B CID2 ####[facility] Pwmqvezjee1987[address] [place], [place] [address]Dr. Farhat Leal Seratia marcescens Not detected Normal NOT DETECTED [facility] Comment on above: Performed By: #### B CID2 ####[facility] Sxgemialog1574 [place] [id number]. Farhat Leal Site: Rt Hand Normal The [facility] Comment on above: Performed By: #### B CID2 ####[facility] Ugdulzrjor[address] [place], [place] [address]Dr. Farhat Elvis Staph. aureus Detected Abnormal NOT DETECTED The [facility] Comment on above: Performed By: #### B CID2 ####[facility] Emipmqjpqr7025[address] [place], [place] [address]Dr. Madelynlorri Leal Staph. epidermidis Not detected Normal NOT DETECTED [facility] Comment on above: Performed By: #### B CID2 ####[facility] Abmhtbfaxx422[address] [place], [place] [address]Dr. Farhat Leal Staph. lugdunensis Not detected Normal NOT DETECTED [facility] Comment on above: Performed By: #### B CID2 ####[facility] Wlhzmjrjcx[address] [place], [place] [address]Dr. Farhat Leal Staphylococcus Detected Abnormal NOT DETECTED The [facility] Comment on above: Performed By: #### B CID2 ####[facility] Jgyocqstjw[address] [place], [place] [address]Dr. Madelynlorri Leal Strep. agalactiae Not detected Normal NOT DETECTED The [facility] Comment on above: Performed By: #### B CID2 ####[facility] Pdlffdpyqj9[address] [place], [place] [address]Dr. Madelynlorri Leal Strep. pneumoniae Not detected Normal NOT DETECTED The [facility] Comment on above: Performed By: #### B CID2 ####[facility] Cquzdxhtmy0540[address] [place], [place] [address]Dr. Farhat Leal Strep. pyogenes Not detected Normal NOT DETECTED The [facility] Comment on above: Performed By: #### B CID2 ####[facility] Ubjiszobgq3412 [place] [address]Dr. Farhat Leal Streptococcus Not detected Normal NOT DETECTED The [facility] Comment on above: Performed By: #### B CID2 ####[facility] Mgucdkybjm7714 [place] [address]Dr. Farhat Leal Teodoro/B Resist. Gene Not Applicable Normal NOT DETECTED The [facility] Comment on above: Performed By: #### B CID2 ####[facility] Oaelmaotfc9015 [place] [address]Dr. Farhat Leal VIM Resistant Gene Not Applicable Normal NOT DETECTED The [facility] Comment on above: Performed By: #### B CID2 ####[facility] Ssarqyqqde4[address] [place], [place] [address]Dr. Farhat Leal BNPon 11-23-2021 Natriuretic peptide B (Bld) [Mass/Vol] 78018.0 pg/mL Critically high <=1,800.0 [facility] Comment on above: Performed By: #### C MP, CMADM, BNP ####[facility] Mflonhudxj[address] [place], [place] [address]Dr. Farhat Leal CARDIAC AMANDA ADMITon 022 CK [Catalytic activity/Vol] 41 U/L Normal 39-308 [facility] Comment on above: Performed By: #### C MP, CMADM, BNP ####[facility] Paxcsufgpk0235 [place] [address]Dr. Farhat Leal CK.MB [Mass/Vol] 0.98 ng/mL Normal <=3.60 The [facility] Comment on above: Performed By: #### C MP, CMADM, BNP ####[facility] Emyqjwliap20[address] [place], [place] [address]Dr. Farhat Leal HSTROP 30.1 pg/mL Normal 4.0-76.1 [facility] Comment on above: Result Comment: CUT- OFF POINTS HAVE BEEN ESTABLISHED BASED ON THE FOURTH UNIVERSAL DEFINITIONS OF MYOCARDIALINFARCTION. THE UPPER REFERENCE LIMIT (URL) OF TROPONIN, DEFINED THE 99TH PERCENTILE OFcTnI DISTRIBUTION IN A REFERENCE POPULATION, HAS BEEN CONFIRMED THE DECISION THRESHOLDFOR DE DIAGNOSIS. Performed By: #### C MP, CMADM, BNP ####[facility] Ellfpsdosf9855 [place] [id number]. Farhat Leal VALERIA 160 ng/mL Critically high 16-96 [facility] Comment on above: Performed By: #### C MP, CMADM, BNP ####[facility] Gosqbjlwhk6397 [place] [id number]. Farhat Elvis CBC AUTO DIFFon 11-23-2021 BASO # 0.0 103/ul Normal 0.0-0.1 [facility] Comment on above: Performed By: #### C BC ####[facility] Nvevdprjdw4971 [place] [address]Dr. Madelynlorri Leal Basophils/100 WBC (Bld) 0.2 % Normal 0.2-2.0 [facility] Comment on above: Performed By: #### C BC ####[facility] Bpaeuzeamb846[address] [place], [place] [address]Dr. Farhat Leal EO # 0.0 103/ul Normal 0.0-0.7 [facility] Comment on above: Performed By: #### C BC ####[facility] Yzprdsmsln98[address] [place], [place] [address]Dr. Farhat Leal Eosinophils/100 WBC (Bld) 0.1 % Critically low 0.9-7.0 [facility] Comment on above: Performed By: #### C BC ####[facility] Bl[address]rsljcu6740[address] [place], [place] [address]Dr. Farhat Leal Erythrocyte distribution width (RBC) [Ratio] 13.4 % Normal 11.0-15.0 [facility] Comment on above: Performed By: #### C BC ####[facility] Mnnehhriuk15[address] [place], [place] [address]Dr. Madelynlorri Leal Hematocrit (Bld) [Volume fraction] 31.6 % Critically low 42.0-54.0 [facility] Comment on above: Performed By: #### C BC ####[facility] Vhoxnautjo[address] [place], [place] [address]Dr. Farhat Leal Hemoglobin (Bld) [Mass/Vol] 10.4 g/dL Critically low 14.0-18.0 [facility] Comment on above: Performed By: #### C BC ####[facility] Fhusyhuxqh[address] [place] [address]DrSkylar Leal IG # 0.11 10e3/ul Critically high 0.00-0.03 [facility] Comment on above: Performed By: #### C BC ####[facility] Skbppucxap17[address] [place] [address]DrSkylar Leal IG % 0.7 % Critically high 0.0-0.5 [facility] Comment on above: Performed By: #### C BC ####[facility] Fbxoqoezqn1613 [place] [address]DrSkylar Leal LYMPH # 0.5 103/ul Critically low 1.2-3.8 [facility] Comment on above: Performed By: #### C BC ####[facility] Hzrfyrxxje8230 [place] [address]DrSkylar Leal Lymphocytes/100 WBC (Bld) 2.8 % Critically low 20.5-60.0 [facility] Comment on above: Performed By: #### C BC ####[facility] Vlvffeelsb64[address] [place] [address]DrSkylar Leal MANUAL DIFF REQ NO Normal [facility] Comment on above: Performed By: #### C BC ####[facility] Molfcoqozz79[address] [place] [address]DrSkylar Leal MCH (RBC) [Entitic mass] 29.8 pg Normal 25.9-34.0 [facility] Comment on above: Performed By: #### C BC ####[facility] Gtddxogrrr5334 [place] [address]DrSkylar Leal MCHC (RBC) [Mass/Vol] 32.9 g/dL Normal 29.9-35.2 [facility] Comment on above: Performed By: #### C BC ####[facility] Zksriamnkh8407 [place] [id number] Leal MCV (RBC) [Entitic vol] 90.5 fL Normal 80.0-94.0 [facility] Comment on above: Performed By: #### C BC ####[facility] Mpafjydsep23[address] [place] [id number] Joshilorri Elvis MONO # 1.3 103/ul Critically high 0.3-0.8 [facility] Comment on above: Performed By: #### C BC ####[facility] Fhnadznsip0272 [place] [address]DrSkylar Leal Monocytes/100 WBC (Bld) 8.3 % Normal 1.7-12.0 [facility] Comment on above: Performed By: #### C BC ####[facility] Bjlheqjufw18[address] [place] [address]Dr. Madelynlorri Leal NEUT # 13.9 103/ul Critically high 1.4-6.5 [facility] Comment on above: Performed By: #### C BC ####[facility] Ubalhexjsa4[address] [place] [address]Dr. Farhat Leal Neutrophils/100 WBC (Bld) 87.9 % Critically high 43.0-75.0 [facility] Comment on above: Performed By: #### C BC ####[facility] Akoqhvtumv0316 [place] [id number] Leal Platelet mean volume (Bld) [Entitic vol] 9.3 fL Critically low 9.5-13.5 [facility] Comment on above: Performed By: #### C BC ####[facility] Uarprelbfw5143 [place] [id number]. Farhat Leal PLT 390 103/ul Normal 150-450 [facility] Comment on above: Performed By: #### C BC ####[facility] Zdhktwzqva8586 [place] [id number] Leal RBC 3.49 106/ul Critically low 4.70-6.10 [facility] Comment on above: Performed By: #### C BC ####[facility] Mhnmgmyiyl0399 [place] [id number] Leal WBC 15.9 103/ul Critically high 4.0-11.0 [facility] Comment on above: Performed By: #### C BC ####[facility] M[address]vbqbj4[address] [place], [place] [address]Av. Farhat Leal CT HEAD WO CONon 11-23-2021 CT HEAD WO CON Normal [facility] CULTURE BLOODon 11-23-2021 Microscopic examination of blood, culture Culture Observations: NO GROWTH AT 5 DAYS. Normal [facility] Comment on above: Performed By: #### B LDCX2 ####[facility] Pxpiannodg84[address] [place], [place] [address]Uo. Farhat Leal Covid-19 PCR (CVDTBH)on SARS-CoV-2 (COVID-19) RNA JOSH+probe Ql (Unsp spec) Not detected Normal NOT DETECTED [facility] Comment on above: Result Comment: [...] for this test is supported by the [employer] of [employer] and Human Service's declaration that [...] Performed By: #### C VDTBH ####[facility] Dcysydvfdq1448 [place], [place] [address]By. Farhat Leal LACTATE/LACTIC ACIDon 2021 Lactate [Moles/Vol] 1.3 mmol/L Normal 0.4-1.9 [facility] Comment on above: Performed By: #### L ACT ####[facility] Kclqwtqveb8779 [place] [id number]. Farhat Leal Lactate [Moles/Vol] 1.3 mmol/L Normal 0.4-1.9 [facility] Comment on above: Performed By: #### L ACT ####[facility] Kqoqoxfijy[address] [place] [address]Dr. Farhat Leal POINT OF CARE GLUCOSEon 10-0 Glucose [Mass/Vol] 252 mg/dL Critically high 74-106 [facility] Comment on above: Performed By: #### P OCGLUC ####[facility] Pqgqfloais59[address] [place] [address]Dr. Farhat Leal PROF 14(COMP METB)on 022 Albumin [Mass/Vol] 1.6 g/dL Critically low 3.4-5.0 [facility] Comment on above: Performed By: #### C MP, CMADM, BNP ####[facility] [address]xedtylcxp[address] [place] [address]Dr. Farhat Leal Albumin/Globulin [Mass ratio] 0.4 {ratio} Normal [facility] Comment on above: Performed By: #### C MP, CMADM, BNP ####[facility] Cturgzsrqz[address] [place] [address]Dr. Farhat Leal ALP [Catalytic activity/Vol] 98 U/L Normal 46-116 [facility] Comment on above: Performed By: #### C MP, CMADM, BNP ####[facility] Ldpgzcgcrg6382 [place] [address]Dr. Farhat Leal ALT [Catalytic activity/Vol] 52 U/L Normal 16-63 [facility] Comment on above: Performed By: #### C MP, CMADM, BNP ####[facility] Gowjiglutr280[address] [place] [address]Dr. Farhat Leal Anion gap [Moles/Vol] 9.8 mmol/L Normal [facility] Comment on above: Performed By: #### C MP, CMADM, BNP ####[facility] Acczpayama53[address] [place] [address]Dr. Farhat Leal AST [Catalytic activity/Vol] 122 U/L Critically high 15-37 [facility] Comment on above: Performed By: #### C MP, CMADM, BNP ####[facility] Lixfnhfohe70[address] [place] [address]Dr. Farhat Leal Bilirubin [Mass/Vol] 0.7 mg/dL Normal 0.2-1.0 [facility] Comment on above: Performed By: #### C MP, CMADM, BNP ####[facility] Xxjiargarh0[address] [place] [address]Dr. Farhat Leal Calcium [Mass/Vol] 8.6 mg/dL Normal 8.5-10.1 [facility] Comment on above: Performed By: #### C MP, CMADM, BNP ####[facility] Rsziqkanbp84[address] [place], [place] [address]Dr. Farhat Leal Chloride [Moles/Vol] 95 mmol/L Critically low 98-107 [facility] Comment on above: Performed By: #### C MP, CMADM, BNP ####[facility] Rkgqnjslhc254[address] [place], [place] [address]Dr. Farhat Leal CO2 [Moles/Vol] 29.6 mmol/L Normal 21.0-32.0 The [facility] Comment on above: Performed By: #### C MP, CMADM, BNP ####[facility] Heejmrvfmv13[address] [place] [address]Dr. Farhat Leal Creatinine [Mass/Vol] 1.49 mg/dL Critically high 0.70-1.30 The [facility] Comment on above: Performed By: #### C MP, CMADM, BNP ####[facility] Khhkczttcm34[address] [place] [address]Dr. Farhat Leal EGFR-AF ICELANDIC 55 mL/min/1.73m2 Critically low >=60 The [facility] Comment on above: Performed By: #### C MP, CMADM, BNP ####[facility] Bmzpxsbama5[address] [place] [address]Dr. Farhat Leal EGFR-NON AF ICELANDIC 46 mL/min/1.73m2 Critically low >=60 The [facility] Comment on above: Performed By: #### C MP, CMADM, BNP ####[facility] Jbndoalgho6236 [place] [address]Dr. Farhat Leal Globulin (S) [Mass/Vol] 4.3 g/dL Normal [facility] Comment on above: Performed By: #### C MP, CMADM, BNP ####[facility] Nzdggmniba5903 [place] [address]Dr. Farhat Leal Glucose [Mass/Vol] 213 mg/dL Critically high 74-106 [facility] Comment on above: Performed By: #### C MP, CMADM, BNP ####[facility] Bjgqfcyolq2906 [place] [address]Dr. Farhat Leal Potassium [Moles/Vol] 4.4 mmol/L Normal 3.5-5.1 [facility] Comment on above: Performed By: #### C MP, CMADM, BNP ####[facility] Ightbkqvnf[address] [place], [place] [address]Dr. Farhat Leal Protein [Mass/Vol] 5.9 g/dL Critically low 6.4-8.2 [facility] Comment on above: Performed By: #### C MP, CMADM, BNP ####[facility] Aymbgjhvyr13[address] [place], [place] [address]Dr. Farhat Leal Sodium [Moles/Vol] 130 mmol/L Critically low 136-145 [facility] Comment on above: Performed By: #### C MP, CMADM, BNP ####[facility] Yljvulteet93[address] [place], [place] [address]Dr. Farhat Leal Urea nitrogen [Mass/Vol] 46.0 mg/dL Critically high 7.0-18.0 [facility] Comment on above: Performed By: #### C MP, CMADM, BNP ####[facility] Lgourrknds01[address] [place], [place] [address]Dr. Farhat Leal Urea nitrogen/Creatinine [Mass ratio] 30.9 mg/mg Normal [facility] Comment on above: Performed By: #### C MP, CMADM, BNP ####[facility] Zehzcyrlmm26[address] [place], [place] [address]DrSkylar Leal PROTIMEon 10-09-2022 INR Coag (PPP) [Relative time] 2.55 {INR} Normal [facility] Comment on above: Performed By: #### P TT, PT ####[facility] Hxlksdiskr1572 [place] [address]DrSkylar Madelynlorri Leal INR GUIDELINES SEE BELOW Normal [facility] Comment on above: Result Comment: MALINA RED INR: 2.0 - 3.0 CONDITIONS NOT LISTED BELOW 2.5 - 3.5 FOR PROSTHETIC HEART VALVE REPLACEMENT 2.5 - 3.5 RECURRENT THROMBOSIS Performed By: #### P TT, PT ####[facility] Ldxqcjpesk[address] [place], [place] [address]DrSkylar Leal PT Coag (PPP) [Time] 25.9 s Critically high 9.0-11.6 [facility] Comment on above: Performed By: #### P TT, PT ####[facility] Povtommfoc[address] [place], [place] [address]DrSkylar Leal PTTon 11-23-2021 aPTT Coag (Bld) [Time] 39.9 s Critically high 22.3-36. 2 [facility] Comment on above: Performed By: #### P TT, PT ####[facility] Oenvqvmcjd[address] [place], [place] [address]DrSkylar Madelynlorri Leal XR HEEL RT 2Von 11-23-2021 XR HEEL RT 2V Normal [facility] XR FOOT RT MIN 3 VIEWSon XR FOOT RT MIN 3 VIEWS Normal [facility] US ARTERY LEG RTon 2 US ARTERY LEG RT Normal The [facility] CBC AUTO DIFFon 09-24-2021 BASO # 0.1 103/ul Normal 0.0-0.1 [facility] Comment on above: Performed By: #### C BC ####[facility] Aazulsdlnc[address] [place], [place] [address]DrSkylar Leal Basophils/100 WBC (Bld) 0.7 % Normal 0.2-2.0 [facility] Comment on above: Performed By: #### C BC ####[facility] Ftqmfwcbwe[address] [place] [id number]. Farhat Leal EO # 0.3 103/ul Normal 0.0-0.7 [facility] Comment on above: Performed By: #### C BC ####[facility] Ddeuipgoal2253 [place] [id number]. Farhat Leal Eosinophils/100 WBC (Bld) 3.9 % Normal 0.9-7.0 [facility] Comment on above: Performed By: #### C BC ####[facility] Tithoegdww[address] [place] [address]Dr. Farhat Leal Erythrocyte distribution width (RBC) [Ratio] 12.6 % Normal 11.0-15.0 [facility] Comment on above: Performed By: #### C BC ####[facility] Rohlluvznz4704 [place] [address]Dr. Farhat Leal Hematocrit (Bld) [Volume fraction] 38.9 % Critically low 42.0-54.0 [facility] Comment on above: Performed By: #### C BC ####[facility] Xgglddnkxa[address] [place] [address]Dr. Farhat Leal Hemoglobin (Bld) [Mass/Vol] 12.8 g/dL Critically low 14.0-18.0 [facility] Comment on above: Performed By: #### C BC ####[facility] Pzvtgrccqe2[address] [place] [address]Dr. Farhat Leal IG # 0.10 10e3/ul Critically high 0.00-0.03 [facility] Comment on above: Performed By: #### C BC ####[facility] Rbhvrstgls08[address] [place] [address]Dr. Farhat Leal IG % 1.2 % Critically high 0.0-0.5 The [facility] Comment on above: Performed By: #### C BC ####[facility] Awheuqnusa[address] [place] [address]Dr. Madelynlorri Leal LYMPH # 2.1 103/ul Normal 1.2-3.8 [facility] Comment on above: Performed By: #### C BC ####[facility] Gwtotlwwei5[address] [place] [id number]. Farhat Elvis Lymphocytes/100 WBC (Bld) 25.9 % Normal 20.5-60.0 [facility] Comment on above: Performed By: #### C BC ####[facility] Ntiuvapijf4460 [place] [id number]. Madelynlorri Leal MANUAL DIFF REQ NO Normal [facility] Comment on above: Performed By: #### C BC ####[facility] Mwbyhcasdw9905 [place] [id number]. Farhat Elvis MCH (RBC) [Entitic mass] 31.1 pg Normal 25.9-34.0 [facility] Comment on above: Performed By: #### C BC ####[facility] Cqfttanzav18[address] [place] [address]Dr. Farhat Elvis MCHC (RBC) [Mass/Vol] 32.9 g/dL Normal 29.9-35.2 [facility] Comment on above: Performed By: #### C BC ####[facility] Lvddpsydwd[address] [place] [address]Dr. Farhat Elvis MCV (RBC) [Entitic vol] 94.6 fL Critically high 80.0-94.0 [facility] Comment on above: Performed By: #### C BC ####[facility] Brcybivoxy6149 [place] [id number]. Farhat Leal MONO # 1.2 103/ul Critically high 0.3-0.8 [facility] Comment on above: Performed By: #### C BC ####[facility] Mfjxbowoyc1684 [place] [id number]. Madelynlorri Leal Monocytes/100 WBC (Bld) 14.1 % Critically high 1.7-12.0 [facility] Comment on above: Performed By: #### C BC ####[facility] Bfqhexdlfb[address] [place], [place] [address]Dr. Farhat Leal NEUT # 4.4 103/ul Normal 1.4-6.5 [facility] Comment on above: Performed By: #### C BC ####[facility] Yqqglawxzu4362 [place] [id number]. Farhat Leal Neutrophils/100 WBC (Bld) 54.2 % Normal 43.0-75.0 [facility] Comment on above: Performed By: #### C BC ####[facility] Ojwcxngqfe2079 [place] [id number]. Farhat Leal Platelet mean volume (Bld) [Entitic vol] 9.9 fL Normal 9.5-13.5 [facility] Comment on above: Performed By: #### C BC ####[facility] Yjghwupobq9893 [place] [id number]. Farhat Elvis PLT 224 103/ul Normal 150-450 [facility] Comment on above: Performed By: #### C BC ####[facility] Bbcnoeutim3982 [place] [phone]. Farhat Leal RBC 4.11 106/ul Critically low 4.70-6.10 [facility] Comment on above: Performed By: #### C BC ####[facility] Fjtaqmlzgl8102 [place] [id number]. Farhat Leal WBC 8.2 103/ul Normal 4.0-11.0 [facility] Comment on above: Performed By: #### C BC ####[facility] Pakmutetaw5373 [place] [phone]. Farhat Leal PROF CHEM 8 (BAS METB)on Anion gap [Moles/Vol] 9.6 mmol/L Normal [facility] Comment on above: Performed By: #### B MP ####[facility] Qlcmbxitfi7582 [place] [id number]. Farhat Leal Calcium [Mass/Vol] 8.6 mg/dL Normal 8.5-10.1 [facility] Comment on above: Performed By: #### B MP ####[facility] Kfrhfxkvct1216 [place] [phone]. Farhat Leal Chloride [Moles/Vol] 94 mmol/L Critically low 98-107 [facility] Comment on above: Performed By: #### B MP ####[facility] Suqafnpgps4783 [place] [id number]. Farhat Leal CO2 [Moles/Vol] 28.1 mmol/L Normal 21.0-32.0 [facility] Comment on above: Performed By: #### B MP ####[facility] Aceuzhjbyu5697 [place] [id number]. Farhat Leal Creatinine [Mass/Vol] 1.91 mg/dL Critically high 0.70-1.30 [facility] Comment on above: Performed By: #### B MP ####[facility] Nyujpsdreu4097 [place] [id number]. Farhat Leal EGFR-AF ICELANDIC 42 mL/min/1.73m2 Critically low >=60 [facility] Comment on above: Performed By: #### B MP ####[facility] Nubbvmtlln6[address] [place], [place] [address]Dr. Farhat Leal EGFR-NON AF ICELANDIC 34 mL/min/1.73m2 Critically low >=60 [facility] Comment on above: Performed By: #### B MP ####[facility] Qixzlfaxku4229[address] [place], [place] [address]Dr. Madelynlorri Elvis Glucose [Mass/Vol] 314 mg/dL Critically high 74-106 [facility] Comment on above: Performed By: #### B MP ####[facility] Isieusgotp2740[address] [place], [place] [address]Dr. Farhat Leal Potassium [Moles/Vol] 4.7 mmol/L Normal 3.5-5.1 [facility] Comment on above: Performed By: #### B MP ####[facility] Zcrqyvkqjw5[address] [place], [place] [address]Dr. Farhat Leal Sodium [Moles/Vol] 127 mmol/L Critically low 136-145 [facility] Comment on above: Performed By: #### B MP ####[facility] Vfsvbenyvh76[address] [place], [place] [address]Dr. Farhat Leal Urea nitrogen [Mass/Vol] 79.0 mg/dL Critically high 7.0-18.0 [facility] Comment on above: Result Comment: repe ated Performed By: #### B MP ####[facility] Tfiujsjswz13[address] [place], [place] [address]Dr. Farhat Leal Urea nitrogen/Creatinine [Mass ratio] 41.4 mg/mg Normal [facility] Comment on above: Performed By: #### B MP ####[facility] Aoqbynobng5[address] [place], [place] [address]Dr. Farhat Elvis PTT HEPARIN MONITORon 2021 aPTT Coag (Bld) [Time] 56.7 s Critically high 39.5-54. 2 [facility] Comment on above: Performed By: #### P TTHEP ####[facility] Iigtnfifza7299[address] [place], [place] [address]Dr. Farhat Elvis aPTT Coag (Bld) [Time] 42.7 s Normal 39.5-54.2 [facility] Comment on above: Performed By: #### P TTHEP ####[facility] Jzprycyiyn45[address] [place], [place] [address]Dr. Farhat Elvis CBC AUTO DIFFon 09-23-2021 BASO # 0.1 103/ul Normal 0.0-0.1 [facility] Comment on above: Performed By: #### C BC ####[facility] Svyjevjkyk6[address] [place], [place] [address]Dr. Farhat Leal Basophils/100 WBC (Bld) 0.6 % Normal 0.2-2.0 [facility] Comment on above: Performed By: #### C BC ####[facility] Infmhxaxpt910[address] [place], [place] [address]Dr. Madelynlorri Elvis EO # 0.2 103/ul Normal 0.0-0.7 [facility] Comment on above: Performed By: #### C BC ####[facility] Xuxwpubxrk1869[address] [place], [place] [address]Dr. Farhat Leal Eosinophils/100 WBC (Bld) 2.6 % Normal 0.9-7.0 [facility] Comment on above: Performed By: #### C BC ####[facility] Kscaoydldg075[address] [place], [place] [address]Dr. Farhat Leal Erythrocyte distribution width (RBC) [Ratio] 12.4 % Normal 11.0-15.0 [facility] Comment on above: Performed By: #### C BC ####[facility] Erdcywmrgm8625 [place] [address]Dr. Farhat Leal Hematocrit (Bld) [Volume fraction] 38.4 % Critically low 42.0-54.0 [facility] Comment on above: Performed By: #### C BC ####[facility] Qomckkarvz2302 [place] [address]Dr. Farhat Leal Hemoglobin (Bld) [Mass/Vol] 12.8 g/dL Critically low 14.0-18.0 [facility] Comment on above: Performed By: #### C BC ####[facility] Imfzkehnzb5038 [place] [address]Dr. Farhat Elvis IG # 0.06 10e3/ul Critically high 0.00-0.03 [facility] Comment on above: Performed By: #### C BC ####[facility] Pzxdrplavs7[address] [place], [place] [address]Dr. Farhat Elvis IG % 0.8 % Critically high 0.0-0.5 [facility] Comment on above: Performed By: #### C BC ####[facility] Qosixxccuc06[address] [place], [place] [address]Dr. Farhat Elvis LYMPH # 1.5 103/ul Normal 1.2-3.8 [facility] Comment on above: Performed By: #### C BC ####[facility] Jpitcfzwpo7[address] [place], [place] [address]Dr. Madelynlorri Leal Lymphocytes/100 WBC (Bld) 19.7 % Critically low 20.5-60.0 [facility] Comment on above: Performed By: #### C BC ####[facility] Wlyxmollkc2177[address] [place], [place] [address]Dr. Madelynlorri Leal MANUAL DIFF REQ NO Normal [facility] Comment on above: Performed By: #### C BC ####[facility] Nqhnqevtlt0[address] [place], [place] [address]Dr. Farhat Leal MCH (RBC) [Entitic mass] 31.6 pg Normal 25.9-34.0 [facility] Comment on above: Performed By: #### C BC ####[facility] Lshugvxhrb4797 [place] [address]Dr. Farhat Leal MCHC (RBC) [Mass/Vol] 33.3 g/dL Normal 29.9-35.2 [facility] Comment on above: Performed By: #### C BC ####[facility] Qirivgpttd1886 [place] [address]Dr. Farhat Leal MCV (RBC) [Entitic vol] 94.8 fL Critically high 80.0-94.0 [facility] Comment on above: Performed By: #### C BC ####[facility] Fkmmgenbqi5115 [place] [address]Dr. Farhat Leal MONO # 1.0 103/ul Critically high 0.3-0.8 [facility] Comment on above: Performed By: #### C BC ####[facility] Awvpdpsmjc204[address] [place], [place] [address]Dr. Farhat Elvis Monocytes/100 WBC (Bld) 13.0 % Critically high 1.7-12.0 [facility] Comment on above: Performed By: #### C BC ####[facility] Mfxaifhork4[address] [place] [address]Dr. Farhat Leal NEUT # 4.9 103/ul Normal 1.4-6.5 [facility] Comment on above: Performed By: #### C BC ####[facility] Nelnmayzjb1579 [place] [address]Dr. Farhat Elvis Neutrophils/100 WBC (Bld) 63.3 % Normal 43.0-75.0 [facility] Comment on above: Performed By: #### C BC ####[facility] Httfntbkaf7613 [place] [address]Dr. Farhat Leal Platelet mean volume (Bld) [Entitic vol] 10.7 fL Normal 9.5-13.5 [facility] Comment on above: Performed By: #### C BC ####[facility] Ldgmsgbqfp5445 [place] [id number]. Farhat Leal PLT 205 103/ul Normal 150-450 [facility] Comment on above: Performed By: #### C BC ####[facility] Ymfygakvnd6334 [place] [address]Dr. Farhat Leal RBC 4.05 106/ul Critically low 4.70-6.10 [facility] Comment on above: Performed By: #### C BC ####[facility] Wuzlfqmkef7145 [place] [id number]. Farhat Leal WBC 7.7 103/ul Normal 4.0-11.0 [facility] Comment on above: Performed By: #### C BC ####[facility] Dwcyetkrzc3824[address] [place], [place] [address]Dr. Madelynlorri Leal PROF CHEM 8 (BAS METB)on Anion gap [Moles/Vol] 15.5 mmol/L Normal [facility] Comment on above: Performed By: #### B MP ####[facility] Smxqqlzvyo66[address] [place], [place] [address]Dr. Farhat Leal Calcium [Mass/Vol] 9.1 mg/dL Normal 8.5-10.1 [facility] Comment on above: Performed By: #### B MP ####[facility] Asxtvdqbjv6[address] [place], [place] [address]Dr. Farhat Leal Chloride [Moles/Vol] 92 mmol/L Critically low 98-107 [facility] Comment on above: Performed By: #### B MP ####[facility] Miohhohhws[address] [place], [place] [address]Dr. Farhat Leal CO2 [Moles/Vol] 28.5 mmol/L Normal 21.0-32.0 [facility] Comment on above: Performed By: #### B MP ####[facility] Qzgvxigljt[address] [place], [place] [address]Dr. Farhat Leal Creatinine [Mass/Vol] 1.84 mg/dL Critically high 0.70-1.30 [facility] Comment on above: Performed By: #### B MP ####[facility] Xamimogdfm9198 [place] [id number]. Madelynlorri Elvis EGFR-AF ICELANDIC 44 mL/min/1.73m2 Critically low >=60 [facility] Comment on above: Performed By: #### B MP ####[facility] Ddlkiplxtf5461 [place] [id number]. Farhat Leal EGFR-NON AF ICELANDIC 36 mL/min/1.73m2 Critically low >=60 [facility] Comment on above: Performed By: #### B MP ####[facility] Djdkbmpoym4497 [place] [id number]. Farhat Leal Glucose [Mass/Vol] 267 mg/dL Critically high 74-106 [facility] Comment on above: Performed By: #### B MP ####[facility] Aycgotrhsc1423 [place] [address]Dr. Farhat Leal Potassium [Moles/Vol] 5.0 mmol/L Normal 3.5-5.1 [facility] Comment on above: Performed By: #### B MP ####[facility] Grrwygcdwv3102 [place] [address]Dr. Farhat Leal Sodium [Moles/Vol] 131 mmol/L Critically low 136-145 [facility] Comment on above: Performed By: #### B MP ####[facility] Yuzerekalo3274 [place] [address]Dr. Farhat Leal Urea nitrogen [Mass/Vol] 76.0 mg/dL Critically high 7.0-18.0 [facility] Comment on above: Performed By: #### B MP ####[facility] Gqnbyopcri8451 [place] [address]Dr. Farhat Leal Urea nitrogen/Creatinine [Mass ratio] 41.3 mg/mg Normal [facility] Comment on above: Performed By: #### B MP ####[facility] Ozcxncoptf[address] [place], [place] [address]Dr. Farhat Leal PTT HEPARIN MONITORon 2021 aPTT Coag (Bld) [Time] 45.5 s Normal 39.5-54.2 [facility] Comment on above: Performed By: #### P TTHEP ####[facility] Lwvlvlqomp[address] [place], [place] [address]Dr. Farhat Leal aPTT Coag (Bld) [Time] 74.7 s Critically high 39.5-54. 2 [facility] Comment on above: Result Comment: repe ated Performed By: #### P TTHEP ####[facility] Dpvjvuqcgp[address] [place], [place] [address]Dr. Farhat Elvis aPTT Coag (Bld) [Time] 57.2 s Critically high 39.5-54. 2 [facility] Comment on above: Performed By: #### P TTHEP ####[facility] Flmzphofyt[address] [place], [place] [address]Dr. Farhat Elvis CBC AUTO DIFFon 09-22-2021 BASO # 0.1 103/ul Normal 0.0-0.1 [facility] Comment on above: Performed By: #### C BC ####[facility] Rbjnevywrr[address] [place], [place] [address]Dr. Madelynlorri Leal Basophils/100 WBC (Bld) 0.7 % Normal 0.2-2.0 [facility] Comment on above: Performed By: #### C BC ####[facility] Bjrlwfgdoz474[address] [place], [place] [address]Dr. Farhat Elvis EO # 0.3 103/ul Normal 0.0-0.7 [facility] Comment on above: Performed By: #### C BC ####[facility] Mgvqtnrnfn146[address] [place], [place] [address]Dr. Farhat Leal Eosinophils/100 WBC (Bld) 3.2 % Normal 0.9-7.0 [facility] Comment on above: Performed By: #### C BC ####[facility] Klquypkkqs9[address] [place], [place] [address]Dr. Farhat Leal Erythrocyte distribution width (RBC) [Ratio] 12.5 % Normal 11.0-15.0 [facility] Comment on above: Performed By: #### C BC ####[facility] Tzsvpnafnx[address] [place] [address]Dr. Farhat Leal Hematocrit (Bld) [Volume fraction] 40.5 % Critically low 42.0-54.0 [facility] Comment on above: Performed By: #### C BC ####[facility] Glqofbhwpi13[address] [place] [address]Dr. Farhat Leal Hemoglobin (Bld) [Mass/Vol] 13.4 g/dL Critically low 14.0-18.0 [facility] Comment on above: Performed By: #### C BC ####[facility] Jrbmmlhudy22[address] [place] [address]Dr. Farhat Elvis IG # 0.11 10e3/ul Critically high 0.00-0.03 [facility] Comment on above: Performed By: #### C BC ####[facility] Rcdamqonpg8139 [place] [address]Dr. Farhat Leal IG % 1.3 % Critically high 0.0-0.5 [facility] Comment on above: Performed By: #### C BC ####[facility] Qdtvvqvnip4[address] [place] [address]Dr. Madelynlorri Leal LYMPH # 1.7 103/ul Normal 1.2-3.8 [facility] Comment on above: Performed By: #### C BC ####[facility] Dtosurpydz18[address] [place] [address]Dr. Farhat Elvis Lymphocytes/100 WBC (Bld) 19.6 % Critically low 20.5-60.0 [facility] Comment on above: Performed By: #### C BC ####[facility] Segrjsfsby6[address] [place] [address]Dr. Madelynlorri Leal MANUAL DIFF REQ NO Normal [facility] Comment on above: Performed By: #### C BC ####[facility] Uhgcmswbyc25[address] [place], [place] [address]Dr. Farhat Elvis MCH (RBC) [Entitic mass] 31.1 pg Normal 25.9-34.0 [facility] Comment on above: Performed By: #### C BC ####[facility] Ofkrxlscng[address] [place], [place] [id number]. Farhat Leal MCHC (RBC) [Mass/Vol] 33.1 g/dL Normal 29.9-35.2 [facility] Comment on above: Performed By: #### C BC ####[facility] Mnvxksdxny3018 [place] [id number]. Farhat Leal MCV (RBC) [Entitic vol] 94.0 fL Normal 80.0-94.0 [facility] Comment on above: Performed By: #### C BC ####[facility] Knvermdlsd2181 [place] [id number]. Farhat Leal MONO # 1.1 103/ul Critically high 0.3-0.8 [facility] Comment on above: Performed By: #### C BC ####[facility] Yhjchtguit7175 [place] [address]Dr. Farhat Elvis Monocytes/100 WBC (Bld) 12.7 % Critically high 1.7-12.0 [facility] Comment on above: Performed By: #### C BC ####[facility] Sfrdxhgvts45[address] [place], [place] [address]Dr. Farhat Leal NEUT # 5.3 103/ul Normal 1.4-6.5 [facility] Comment on above: Performed By: #### C BC ####[facility] Ttdvsprwqa[address] [place], [place] [id number]. Farhat Elvis Neutrophils/100 WBC (Bld) 62.5 % Normal 43.0-75.0 [facility] Comment on above: Performed By: #### C BC ####[facility] Wacviuhbid23[address] [place], [place] [id number]. Farhat Leal Platelet mean volume (Bld) [Entitic vol] 10.1 fL Normal 9.5-13.5 [facility] Comment on above: Performed By: #### C BC ####[facility] Wqnqzalxtk[address] [place], [place] [id number]. Farhat Elvis PLT 220 103/ul Normal 150-450 [facility] Comment on above: Performed By: #### C BC ####[facility] Pwfluivcqc8134 [place] [address]Dr. Madelynlorri Elvis RBC 4.31 106/ul Critically low 4.70-6.10 [facility] Comment on above: Performed By: #### C BC ####[facility] Sieaqzpfkh8831 [place] [address]Dr. Farhat Leal WBC 8.4 103/ul Normal 4.0-11.0 [facility] Comment on above: Performed By: #### C BC ####[facility] Uhimiqaawi20[address] [place] [address]Dr. Farhat Leal PROF CHEM 8 (BAS METB)on Anion gap [Moles/Vol] 15.5 mmol/L Normal [facility] Comment on above: Performed By: #### B MP ####[facility] Zrupduqwvb964[address] [place], [place] [address]Dr. Farhat Leal Calcium [Mass/Vol] 8.9 mg/dL Normal 8.5-10.1 [facility] Comment on above: Performed By: #### B MP ####[facility] Fklrwueodj8828[address] [place], [place] [address]Dr. Farhat Leal Chloride [Moles/Vol] 92 mmol/L Critically low 98-107 [facility] Comment on above: Performed By: #### B MP ####[facility] Exuipvcqek92[address] [place] [address]Dr. Farhat Leal CO2 [Moles/Vol] 25.7 mmol/L Normal 21.0-32.0 [facility] Comment on above: Performed By: #### B MP ####[facility] Siqnfilvqc9339 [place] [address]Dr. Farhat Leal Creatinine [Mass/Vol] 1.85 mg/dL Critically high 0.70-1.30 [facility] Comment on above: Performed By: #### B MP ####[facility] Wfjchulazp2429[address] [place], [place] [address]Dr. Farhat Leal EGFR-AF ICELANDIC 43 mL/min/1.73m2 Critically low >=60 [facility] Comment on above: Performed By: #### B MP ####[facility] Tesbkfmdod6937[address] [place], [place] [address]Dr. Madelynlorri Elvis EGFR-NON AF ICELANDIC 36 mL/min/1.73m2 Critically low >=60 [facility] Comment on above: Performed By: #### B MP ####[facility] Sbnbowmepp277[address] [place], [place] [address]Dr. Farhat Leal Glucose [Mass/Vol] 410 mg/dL Critically high 74-106 [facility] Comment on above: Performed By: #### B MP ####[facility] Ikibpwgqfz4028[address] [place], [place] [address]Dr. Farhat Leal Potassium [Moles/Vol] 5.2 mmol/L Critically high 3.5-5.1 [facility] Comment on above: Performed By: #### B MP ####[facility] Vfknouxzvc6300[address] [place], [place] [address]Dr. Farhat Leal Sodium [Moles/Vol] 128 mmol/L Critically low 136-145 [facility] Comment on above: Performed By: #### B MP ####[facility] Gwzgfeyixz9511[address] [place], [place] [address]Dr. Farhat Leal Urea nitrogen [Mass/Vol] 75.0 mg/dL Critically high 7.0-18.0 [facility] Comment on above: Performed By: #### B MP ####[facility] Nflcmprzsn0400[address] [place], [place] [address]Dr. Farhat Leal Urea nitrogen/Creatinine [Mass ratio] 40.5 mg/mg Normal [facility] Comment on above: Performed By: #### B MP ####[facility] Mncxhxscxz5070[address] [place], [place] [address]Dr. Farhat Leal PTT HEPARIN MONITORon 2021 aPTT Coag (Bld) [Time] 53.8 s Normal 39.5-54.2 [facility] Comment on above: Performed By: #### P TTHEP ####[facility] Wapserrmct5250[address] [place], [place] [address]Dr. Farhat Leal aPTT Coag (Bld) [Time] 46.1 s Normal 39.5-54.2 [facility] Comment on above: Performed By: #### P TTHEP ####[facility] Cygeptuquy289[address] [place], [place] [address]Dr. Farhat Leal aPTT Coag (Bld) [Time] 55.6 s Critically high 39.5-54. 2 [facility] Comment on above: Performed By: #### P TTHEP ####[facility] Pafuhxiuir629[address] [place], [place] [address]Dr. Farhat Elvis aPTT Coag (Bld) [Time] 51.2 s Normal 39.5-54.2 [facility] Comment on above: Performed By: #### P TTHEP ####[facility] Rebzcfuaud5830[address] [place], [place] [address]Dr. Farhat Elvis CBC AUTO DIFFon 09-21-2021 BASO # 0.1 103/ul Normal 0.0-0.1 [facility] Comment on above: Performed By: #### C BC ####[facility] Dkumkxnckn8[address] [place], [place] [address]Dr. Farhat Leal Basophils/100 WBC (Bld) 0.8 % Normal 0.2-2.0 [facility] Comment on above: Performed By: #### C BC ####[facility] Pwqwplaotr[address] [place], [place] [address]Dr. Farhat Elvis EO # 0.4 103/ul Normal 0.0-0.7 [facility] Comment on above: Performed By: #### C BC ####[facility] Dauunhhgqp626[address] [place], [place] [address]Dr. Farhat Leal Eosinophils/100 WBC (Bld) 4.3 % Normal 0.9-7.0 [facility] Comment on above: Performed By: #### C BC ####[facility] Wcahawhkfr[address]26[address] [place], [place] [address]Dr. Farhat Elvis Erythrocyte distribution width (RBC) [Ratio] 12.5 % Normal 11.0-15.0 [facility] Comment on above: Performed By: #### C BC ####[facility] G[address]bhukwhh[address] [place] [address]Dr. Farhat Leal Hematocrit (Bld) [Volume fraction] 40.8 % Critically low 42.0-54.0 [facility] Comment on above: Performed By: #### C BC ####[facility] Uszhzytswk0116 [place] [address]Dr. Farhat Leal Hemoglobin (Bld) [Mass/Vol] 13.5 g/dL Critically low 14.0-18.0 [facility] Comment on above: Performed By: #### C BC ####[facility] Tqginesqqa[address] [place] [address]Dr. Farhat Leal IG # 0.10 10e3/ul Critically high 0.00-0.03 [facility] Comment on above: Performed By: #### C BC ####[facility] Qoimthwffq5437 [place] [address]Dr. Farhat Leal IG % 1.2 % Critically high 0.0-0.5 [facility] Comment on above: Performed By: #### C BC ####[facility] Czjvlzzjne5[address] [place] [address]Dr. Farhat Leal LYMPH # 1.3 103/ul Normal 1.2-3.8 [facility] Comment on above: Performed By: #### C BC ####[facility] Ctoglwocgr7096 [place] [address]Dr. Farhat Leal Lymphocytes/100 WBC (Bld) 15.4 % Critically low 20.5-60.0 [facility] Comment on above: Performed By: #### C BC ####[facility] Wbxqrdnyfe20[address] [place] [address]Dr. Madelynlorri Leal MANUAL DIFF REQ NO Normal [facility] Comment on above: Performed By: #### C BC ####[facility] Nbxlnbazgf[address] [place], [place] [address]Dr. Farhat Leal MCH (RBC) [Entitic mass] 31.0 pg Normal 25.9-34.0 [facility] Comment on above: Performed By: #### C BC ####[facility] Mqcihwrsnl1695 [place] [id number]. Farhat Leal MCHC (RBC) [Mass/Vol] 33.1 g/dL Normal 29.9-35.2 [facility] Comment on above: Performed By: #### C BC ####[facility] Sapgcjwtqa9493 [place] [id number]. Farhat Leal MCV (RBC) [Entitic vol] 93.8 fL Normal 80.0-94.0 [facility] Comment on above: Performed By: #### C BC ####[facility] Uxjoaeycvo1803 [place] [id number]. Farhat Leal MONO # 1.2 103/ul Critically high 0.3-0.8 [facility] Comment on above: Performed By: #### C BC ####[facility] Sectdiisrf[address]82 [place] [address]Dr. Madelynlorri Leal Monocytes/100 WBC (Bld) 13.6 % Critically high 1.7-12.0 [facility] Comment on above: Performed By: #### C BC ####[facility] Xqfastkmsi9427 [place] [id number]. Farhat Leal NEUT # 5.5 103/ul Normal 1.4-6.5 [facility] Comment on above: Performed By: #### C BC ####[facility] Nvfqcfqlyf0389 [place] [id number]. Farhat Elvis Neutrophils/100 WBC (Bld) 64.7 % Normal 43.0-75.0 [facility] Comment on above: Performed By: #### C BC ####[facility] Gijnecbdir5729 [place] [id number]. Farhat Leal Platelet mean volume (Bld) [Entitic vol] 9.8 fL Normal 9.5-13.5 [facility] Comment on above: Performed By: #### C BC ####[facility] Oncfhavzvu3381 [place] [id number]. Farhat Elvis PLT 206 103/ul Normal 150-450 [facility] Comment on above: Performed By: #### C BC ####[facility] Esgdavdaow6422 [place] [id number]. Farhat Leal RBC 4.35 106/ul Critically low 4.70-6.10 [facility] Comment on above: Performed By: #### C BC ####[facility] Otjhbulamw7567 [place] [id number]. Farhat Leal WBC 8.4 103/ul Normal 4.0-11.0 [facility] Comment on above: Performed By: #### C BC ####[facility] Gfixmqunvm4360 [place] [address]Dr. Farhat Leal PROF CHEM 8 (BAS METB)on Anion gap [Moles/Vol] 12.3 mmol/L Normal [facility] Comment on above: Performed By: #### B MP ####[facility] Aaotmkketz4355[address] [place], [place] [address]Dr. Farhat Leal Calcium [Mass/Vol] 8.6 mg/dL Normal 8.5-10.1 [facility] Comment on above: Performed By: #### B MP ####[facility] Eawjymvxoa9970[address] [place], [place] [address]Dr. Farhat Leal Chloride [Moles/Vol] 94 mmol/L Critically low 98-107 [facility] Comment on above: Performed By: #### B MP ####[facility] Jsujxulttd222[address] [place], [place] [address]Dr. Farhat Leal CO2 [Moles/Vol] 30.8 mmol/L Normal 21.0-32.0 [facility] Comment on above: Performed By: #### B MP ####[facility] Avekhqggwc9101[address] [place], [place] [address]Dr. Farhat Leal Creatinine [Mass/Vol] 1.99 mg/dL Critically high 0.70-1.30 [facility] Comment on above: Performed By: #### B MP ####[facility] Yeqensojub0585[address] [place], [place] [address]Dr. Farhat Leal EGFR-AF ICELANDIC 40 mL/min/1.73m2 Critically low >=60 [facility] Comment on above: Performed By: #### B MP ####[facility] Gvouhveshe0244 [place] [address]Dr. Farhat Leal EGFR-NON AF ICELANDIC 33 mL/min/1.73m2 Critically low >=60 [facility] Comment on above: Performed By: #### B MP ####[facility] Rldgeqyheu6861 [place] [address]Dr. Farhat Leal Glucose [Mass/Vol] 264 mg/dL Critically high 74-106 [facility] Comment on above: Performed By: #### B MP ####[facility] Hfbwaonxik1527 [place] [address]Dr. Farhat Leal Potassium [Moles/Vol] 5.1 mmol/L Normal 3.5-5.1 [facility] Comment on above: Performed By: #### B MP ####[facility] Behqkvhyrn0433[address] [place], [place] [address]Dr. Farhat Leal Sodium [Moles/Vol] 132 mmol/L Critically low 136-145 [facility] Comment on above: Performed By: #### B MP ####[facility] Hgvpkctbjb2400[address] [place], [place] [address]Dr. Farhat Leal Urea nitrogen [Mass/Vol] 72.0 mg/dL Critically high 7.0-18.0 [facility] Comment on above: Performed By: #### B MP ####[facility] Gldzijtgrm9216[address] [place], [place] [address]Dr. Farhat Leal Urea nitrogen/Creatinine [Mass ratio] 36.2 mg/mg Normal [facility] Comment on above: Performed By: #### B MP ####[facility] Wxahybdjbd1638[address] [place], [place] [address]Dr. Farhat Leal PTT HEPARIN MONITORon 2021 aPTT Coag (Bld) [Time] 126.9 s Critically high 39.5-54. 2 [facility] Comment on above: Performed By: #### P TTHEP ####[facility] Lzkiranoop705[address] [place], [place] [address]Dr. Farhat Leal aPTT Coag (Bld) [Time] 53.5 s Normal 39.5-54.2 [facility] Comment on above: Performed By: #### P TTHEP ####[facility] Wheavdgbnu8422[address] [place], [place] [address]Dr. Farhat Leal aPTT Coag (Bld) [Time] 69.4 s Critically high 39.5-54. 2 [facility] Comment on above: Performed By: #### P TTHEP ####[facility] Oreadrfixg794[address] [place], [place] [address]Dr. Farhat Leal aPTT Coag (Bld) [Time] 68.0 s Critically high 39.5-54. 2 [facility] Comment on above: Performed By: #### P TTHEP ####[facility] Ryxqrhvtyh599[address] [place], [place] [address]Dr. Farhat Leal aPTT Coag (Bld) [Time] 45.3 s Normal 39.5-54.2 [facility] Comment on above: Performed By: #### P TTHEP ####[facility] Srmwvveeey06[address] [place], [place] [address]Dr. Farhat Leal CBC AUTO DIFFon 09-20-2021 BASO # 0.1 103/ul Normal 0.0-0.1 [facility] Comment on above: Performed By: #### C BC ####[facility] Ftlbkssbpu465[address] [place], [place] [address]Dr. Farhat Elvis Basophils/100 WBC (Bld) 0.7 % Normal 0.2-2.0 [facility] Comment on above: Performed By: #### C BC ####[facility] Brvkxxfiai532[address] [place], [place] [address]Dr. Farhat Leal EO # 0.2 103/ul Normal 0.0-0.7 [facility] Comment on above: Performed By: #### C BC ####[facility] Nxowumffpo7918[address] [place], [place] [address]Dr. Farhat Elvis Eosinophils/100 WBC (Bld) 3.2 % Normal 0.9-7.0 [facility] Comment on above: Performed By: #### C BC ####[facility] Ytgsvnqzpp1206 [place] [id number]. Farhat Leal Erythrocyte distribution width (RBC) [Ratio] 12.4 % Normal 11.0-15.0 [facility] Comment on above: Performed By: #### C BC ####[facility] Gpitjktiht7[address] [place] [address]Dr. Farhat Leal Hematocrit (Bld) [Volume fraction] 40.1 % Critically low 42.0-54.0 [facility] Comment on above: Performed By: #### C BC ####[facility] Tjhkvpzvou3286 [place] [address]Dr. Farhat Leal Hemoglobin (Bld) [Mass/Vol] 13.4 g/dL Critically low 14.0-18.0 [facility] Comment on above: Performed By: #### C BC ####[facility] Svphvktfsa64[address] [place], [place] [address]Dr. Farhat Leal IG # 0.08 10e3/ul Critically high 0.00-0.03 [facility] Comment on above: Performed By: #### C BC ####[facility] Afxjpfrnns[address] [place], [place] [address]Dr. Farhat Leal IG % 1.1 % Critically high 0.0-0.5 [facility] Comment on above: Performed By: #### C BC ####[facility] Qujdylrjtu5987[address] [place], [place] [address]Dr. Farhat Leal LYMPH # 1.3 103/ul Normal 1.2-3.8 [facility] Comment on above: Performed By: #### C BC ####[facility] Qdklkzqlcg18[address] [place], [place] [address]Dr. Farhat Leal Lymphocytes/100 WBC (Bld) 17.3 % Critically low 20.5-60.0 [facility] Comment on above: Performed By: #### C BC ####[facility] Wkmhdqsiyh[address] [place], [place] [address]Dr. Farhat Leal MANUAL DIFF REQ NO Normal [facility] Comment on above: Performed By: #### C BC ####[facility] Uhmshmolbm2153 [place] [id number]. Farhat Leal MCH (RBC) [Entitic mass] 31.2 pg Normal 25.9-34.0 [facility] Comment on above: Performed By: #### C BC ####[facility] Wqorrscofz7968 [place] [id number]. Farhat Leal MCHC (RBC) [Mass/Vol] 33.4 g/dL Normal 29.9-35.2 [facility] Comment on above: Performed By: #### C BC ####[facility] Mfsgwcclwm4131 [place] [id number]. Farhat Leal MCV (RBC) [Entitic vol] 93.3 fL Normal 80.0-94.0 [facility] Comment on above: Performed By: #### C BC ####[facility] Viydffluyp[address] [place] [address]Dr. Farhat Leal MONO # 0.9 103/ul Critically high 0.3-0.8 [facility] Comment on above: Performed By: #### C BC ####[facility] Pvvikfuvlk4238 [place] [address]Dr. Madelynlorri Leal Monocytes/100 WBC (Bld) 12.4 % Critically high 1.7-12.0 [facility] Comment on above: Performed By: #### C BC ####[facility] Zvdronwvwn[address] [place], [place] [address]Dr. Farhat Leal NEUT # 4.7 103/ul Normal 1.4-6.5 [facility] Comment on above: Performed By: #### C BC ####[facility] Czxvihiwkc0294 [place] [id number]. Farhat Leal Neutrophils/100 WBC (Bld) 65.3 % Normal 43.0-75.0 [facility] Comment on above: Performed By: #### C BC ####[facility] Cbzaeoqhxr1781 [place] [id number]. Madelynlorri Elvis Platelet mean volume (Bld) [Entitic vol] 9.9 fL Normal 9.5-13.5 [facility] Comment on above: Performed By: #### C BC ####[facility] Mgyaaiaybl9345 [place] [address]Dr. Farhat Leal PLT 180 103/ul Normal 150-450 [facility] Comment on above: Performed By: #### C BC ####[facility] Cwuluwppdl1318 [place] [address]Dr. Farhat Leal RBC 4.30 106/ul Critically low 4.70-6.10 [facility] Comment on above: Performed By: #### C BC ####[facility] Puzsocdldr9074 [place] [address]Dr. Farhat Leal WBC 7.2 103/ul Normal 4.0-11.0 [facility] Comment on above: Performed By: #### C BC ####[facility] Wlfmgtobor[address] [place], [place] [address]Dr. Farhat Leal PTT HEPARIN MONITORon 2021 aPTT Coag (Bld) [Time] 139.0 s Critically high 39.5-54. 2 [facility] Comment on above: Performed By: #### P TTHEP ####[facility] Rzuuscufvp[address] [place], [place] [address]Dr. Farhat Leal aPTT Coag (Bld) [Time] 27.6 s Critically low 39.5-54.2 [facility] Comment on above: Performed By: #### P TTHEP ####[facility] Fjruoohrsn[address] [place], [place] [address]Dr. Farhat Leal aPTT Coag (Bld) [Time] 121.0 s Critically high 39.5-54. 2 [facility] Comment on above: Performed By: #### P TTHEP ####[facility] Niojhtlyrh[address] [place], [place] [address]Dr. Farhat Leal aPTT Coag (Bld) [Time] 26.7 s Critically low 39.5-54.2 [facility] Comment on above: Performed By: #### P TTHEP ####[facility] Dvwthcaucf[address] [place], [place] [address]Dr. Farhat Leal CBC AUTO DIFFon 09-19-2021 BASO # 0.0 103/ul Normal 0.0-0.1 [facility] Comment on above: Performed By: #### C BC ####[facility] [address]ub[address] [place] [address]Dr. Farhat Leal Basophils/100 WBC (Bld) 0.5 % Normal 0.2-2.0 [facility] Comment on above: Performed By: #### C BC ####[facility] Drqbkfyfdu0222 [place] [address]Dr. Farhat Leal EO # 0.2 103/ul Normal 0.0-0.7 [facility] Comment on above: Performed By: #### C BC ####[facility] Xdwqnggnhi7155[address] [place], [place] [address]Dr. Farhat Leal Eosinophils/100 WBC (Bld) 2.6 % Normal 0.9-7.0 [facility] Comment on above: Performed By: #### C BC ####[facility] Rnczzzyxjr[address] [place], [place] [address]Dr. Farhat Leal Erythrocyte distribution width (RBC) [Ratio] 12.5 % Normal 11.0-15.0 [facility] Comment on above: Performed By: #### C BC ####[facility] Mdfsseuzhz[address] [place], [place] [address]Dr. Farhat Leal Hematocrit (Bld) [Volume fraction] 39.2 % Critically low 42.0-54.0 [facility] Comment on above: Performed By: #### C BC ####[facility] Gmgsxleylm038[address] [place], [place] [address]Dr. Farhat Leal Hemoglobin (Bld) [Mass/Vol] 13.3 g/dL Critically low 14.0-18.0 [facility] Comment on above: Performed By: #### C BC ####[facility] Fnkvoioeqc[address] [place] [address]Dr. Farhat Leal IG # 0.08 10e3/ul Critically high 0.00-0.03 [facility] Comment on above: Performed By: #### C BC ####[facility] [address]kegto7[address] [place] [id number]. Farhat Leal IG % 0.9 % Critically high 0.0-0.5 [facility] Comment on above: Performed By: #### C BC ####[facility] Tpyluqhwkx7733 [place] [id number]. Farhat Leal LYMPH # 1.5 103/ul Normal 1.2-3.8 [facility] Comment on above: Performed By: #### C BC ####[facility] Bxprjdowxw6143 [place] [id number]. Farhat Leal Lymphocytes/100 WBC (Bld) 17.2 % Critically low 20.5-60.0 [facility] Comment on above: Performed By: #### C BC ####[facility] Fkhqcszzxp1587 [place] [id number]. Farhat Elvis MANUAL DIFF REQ NO Normal [facility] Comment on above: Performed By: #### C BC ####[facility] Buewyhyxoy3481 [place] [id number]. Farhat Leal MCH (RBC) [Entitic mass] 31.7 pg Normal 25.9-34.0 [facility] Comment on above: Performed By: #### C BC ####[facility] Ydmdrhurit3244 [place] [id number]. Farhat Leal MCHC (RBC) [Mass/Vol] 33.9 g/dL Normal 29.9-35.2 [facility] Comment on above: Performed By: #### C BC ####[facility] Jeutcjfhss1799 [place] [id number]. Farhat Leal MCV (RBC) [Entitic vol] 93.3 fL Normal 80.0-94.0 [facility] Comment on above: Performed By: #### C BC ####[facility] Fusqxqqbsn3432 [place] [id number]. Farhat Elvis MONO # 1.2 103/ul Critically high 0.3-0.8 [facility] Comment on above: Performed By: #### C BC ####[facility] Pdrakiuoxc6422 [place] [id number]. Farhat Leal Monocytes/100 WBC (Bld) 13.7 % Critically high 1.7-12.0 [facility] Comment on above: Performed By: #### C BC ####[facility] Luqyxyinmy3789 [place] [id number]. Farhat Leal NEUT # 5.5 103/ul Normal 1.4-6.5 [facility] Comment on above: Performed By: #### C BC ####[facility] Ftwxjgeabe1476 [place] [phone]. Farhat Leal Neutrophils/100 WBC (Bld) 65.1 % Normal 43.0-75.0 [facility] Comment on above: Performed By: #### C BC ####[facility] Srriuyvdgh6901 [place] [id number]. Farhat Leal Platelet mean volume (Bld) [Entitic vol] 9.6 fL Normal 9.5-13.5 [facility] Comment on above: Performed By: #### C BC ####[facility] Srexodunpm3240 [place] [phone]. Farhat Leal PLT 163 103/ul Normal 150-450 [facility] Comment on above: Performed By: #### C BC ####[facility] Motiesllgk0808 [place] [id number]. Farhat Leal RBC 4.20 106/ul Critically low 4.70-6.10 [facility] Comment on above: Performed By: #### C BC ####[facility] Ixrasolmlk2076 [place] [phone]. Farhat Leal WBC 8.4 103/ul Normal 4.0-11.0 [facility] Comment on above: Performed By: #### C BC ####[facility] Iyfjoswiey4193 [place] [id number]. Farhat Leal POINT OF CARE GLUCOSEon 08-0 Glucose [Mass/Vol] 300 mg/dL Critically high 74-106 T [facility] Comment on above: Performed By: #### P OCGLUC ####[facility] Oeofrhjhru[address] [place] [address]Dr. Farhat Leal POTASSIUMon 09-19-2021 Potassium [Moles/Vol] 4.9 mmol/L Normal 3.5-5.1 [facility] Comment on above: Performed By: #### K ####[facility] Ishyrxrzzk216[address] [place], [place] [address]Dr. Farhat Elvis PTT HEPARIN MONITORon 2021 aPTT Coag (Bld) [Time] 81.0 s Critically high 39.5-54. 2 [facility] Comment on above: Result Comment: Test Repeated. Critical Value Verified Performed By: #### P TTHEP ####[facility] Lqyhcdtptw[address] [place], [place] [address]Dr. Farhat Elvis aPTT Coag (Bld) [Time] 101.2 s Critically high 39.5-54. 2 [facility] Comment on above: Performed By: #### P TTHEP ####[facility] Ssjprgxngd[address] [place], [place] [address]Dr. Farhat Elvis aPTT Coag (Bld) [Time] 23.4 s Critically low 39.5-54.2 [facility] Comment on above: Result Comment: repe ated Performed By: #### P TTHEP ####[facility] Ktybnmtbde7[address] [place], [place] [address]Dr. Farhat Elvis CBC AUTO DIFFon 09-18-2021 BASO # 0.0 103/ul Normal 0.0-0.1 [facility] Comment on above: Performed By: #### C BC ####[facility] Vncrwygvkz[address] [place], [place] [address]Dr. Farhat Elvis BASO # 0.0 103/ul Normal 0.0-0.1 [facility] Comment on above: Performed By: #### C BC ####[facility] Qpmujhbvra[address] [place], [place] [address]Dr. Farhat Leal Basophils/100 WBC (Bld) 0.4 % Normal 0.2-2.0 [facility] Comment on above: Performed By: #### C BC ####[facility] Uiankrvpdu33[address] [place], [place] [address]Gs. Farhat Leal Basophils/100 WBC (Bld) 0.4 % Normal 0.2-2.0 [facility] Comment on above: Performed By: #### C BC ####[facility] Cmtotxpnae5096 [place], [place] [address]W[place]. Farhat Leal EO # 0.1 103/ul Normal 0.0-0.7 [facility] Comment on above: Performed By: #### C BC ####[facility] Zritgdrbyh5358 [place], [place] [address]Zs. Farhat Leal EO # 0.1 103/ul Normal 0.0-0.7 [facility] Comment on above: Performed By: #### C BC ####[facility] Ciwiekxiua1241 [place] [id number]. Farhat Leal Eosinophils/100 WBC (Bld) 1.1 % Normal 0.9-7.0 [facility] Comment on above: Performed By: #### C BC ####[facility] Yuxigpyvbp0915 [place] [id number]. Farhat Leal Eosinophils/100 WBC (Bld) 0.8 % Critically low 0.9-7.0 [facility] Comment on above: Performed By: #### C BC ####[facility] Tliwecmhjc6818 [place] [id number]. Farhat Leal Erythrocyte distribution width (RBC) [Ratio] 12.6 % Normal 11.0-15.0 [facility] Comment on above: Performed By: #### C BC ####[facility] Qggpbboaam7425 [place] [id number]. Farhat Leal Erythrocyte distribution width (RBC) [Ratio] 12.4 % Normal 11.0-15.0 [facility] Comment on above: Performed By: #### C BC ####[facility] Ukniwyofju4627 [place] [id number]. Farhat Leal Hematocrit (Bld) [Volume fraction] 40.8 % Critically low 42.0-54.0 [facility] Comment on above: Performed By: #### C BC ####[facility] Arpswxykbj4312 [place] [id number]. Farhat Leal Hematocrit (Bld) [Volume fraction] 41.7 % Critically low 42.0-54.0 [facility] Comment on above: Performed By: #### C BC ####[facility] Bttqbqcpfm5483 [place] [address]Dr. Farhat Leal Hemoglobin (Bld) [Mass/Vol] 13.6 g/dL Critically low 14.0-18.0 [facility] Comment on above: Performed By: #### C BC ####[facility] Gkporgatnu6697 [place] [address]Dr. Farhat Leal Hemoglobin (Bld) [Mass/Vol] 14.1 g/dL Normal 14.0-18.0 [facility] Comment on above: Performed By: #### C BC ####[facility] Qgkoxtcpnl[address] [place], [place] [address]Dr. Farhat Leal IG # 0.08 10e3/ul Critically high 0.00-0.03 [facility] Comment on above: Performed By: #### C BC ####[facility] Xalniecjaa86[address] [place], [place] [address]Dr. Farhat Leal IG # 0.06 10e3/ul Critically high 0.00-0.03 [facility] Comment on above: Performed By: #### C BC ####[facility] Hvxtrsyvpk11[address] [place], [place] [address]Dr. Farhat Leal IG % 0.9 % Critically high 0.0-0.5 [facility] Comment on above: Performed By: #### C BC ####[facility] Znqjszsizz04[address] [place], [place] [address]Dr. Farhat Leal IG % 0.6 % Critically high 0.0-0.5 [facility] Comment on above: Performed By: #### C BC ####[facility] Hwowkyckju90[address] [place], [place] [address]Dr. Farhat Leal LYMPH # 0.8 103/ul Critically low 1.2-3.[address] [facility] Comment on above: Performed By: #### C BC ####[facility] Momrxtrrrd2438 [place] [id number]. Farhat Leal LYMPH # 0.6 103/ul Critically low 1.2-3.[address] [facility] Comment on above: Performed By: #### C BC ####[facility] Gdccwwdltq6739 [place] [id number]. Farhat Leal Lymphocytes/100 WBC (Bld) 8.7 % Critically low 20.5-60.0 [facility] Comment on above: Performed By: #### C BC ####[facility] Zwyyglhmzj3091 [place] [address]Dr. Farhat Leal Lymphocytes/100 WBC (Bld) 6.5 % Critically low 20.5-60.0 [facility] Comment on above: Performed By: #### C BC ####[facility] Eocqsgrbll[address] [place], [place] [address]Dr. Farhat Elvis MANUAL DIFF REQ NO Normal [facility] Comment on above: Performed By: #### C BC ####[facility] Legurbnhar[address] [place] [address]Dr. Farhat Elvis MANUAL DIFF REQ NO Normal [facility] Comment on above: Performed By: #### C BC ####[facility] Dqeqxqpofc2925 [place] [id number]. Farhat Elvis MCH (RBC) [Entitic mass] 31.6 pg Normal 25.9-34.0 [facility] Comment on above: Performed By: #### C BC ####[facility] Mpurxvkvda4714 [place] [id number]. Farhat Elvis MCH (RBC) [Entitic mass] 31.6 pg Normal 25.9-34.0 [facility] Comment on above: Performed By: #### C BC ####[facility] Jbjcpxqkxi997[address] [place], [place] [address]Dr. Farhat Elvis MCHC (RBC) [Mass/Vol] 33.3 g/dL Normal 29.9-35.2 [facility] Comment on above: Performed By: #### C BC ####[facility] Pmhgrsjyhi0917 [place] [id number]. Farhat Leal MCHC (RBC) [Mass/Vol] 33.8 g/dL Normal 29.9-35.2 [facility] Comment on above: Performed By: #### C BC ####[facility] Rgburlaqrl9355 [place] [id number]. Farhat Leal MCV (RBC) [Entitic vol] 94.9 fL Critically high 80.0-94.0 [facility] Comment on above: Performed By: #### C BC ####[facility] Kawxtdbcvy2846 [place] [id number]. Farhat Leal MCV (RBC) [Entitic vol] 93.5 fL Normal 80.0-94.0 [facility] Comment on above: Performed By: #### C BC ####[facility] Zqsjnjqnrl807[address] [place], [place] [address]Dr. Farhat Leal MONO # 1.0 103/ul Critically high 0.3-0.8 [facility] Comment on above: Performed By: #### C BC ####[facility] Pxvoohxhno6868 [place] [id number]. Farhat Leal MONO # 1.0 103/ul Critically high 0.3-0.8 [facility] Comment on above: Performed By: #### C BC ####[facility] Bpjpamrsdo5488 [place] [id number]. Farhat Leal Monocytes/100 WBC (Bld) 11.3 % Normal 1.7-12.0 [facility] Comment on above: Performed By: #### C BC ####[facility] C[address]xyalarb[address] [place], [place] [address]Dr. Farhat Leal Monocytes/100 WBC (Bld) 10.4 % Normal 1.7-12.0 [facility] Comment on above: Performed By: #### C BC ####[facility] Kmdhgsfzgv[address] [place], [place] [address]Dr. Farhat Leal NEUT # 6.9 103/ul Critically high 1.4-6.5 [facility] Comment on above: Performed By: #### C BC ####[facility] Wmjnppycfv5770 [place] [address]Dr. Farhat Leal NEUT # 7.8 103/ul Critically high 1.4-6.5 [facility] Comment on above: Performed By: #### C BC ####[facility] Bpbgaigxcp4189 [place] [address]Dr. Farhat Leal Neutrophils/100 WBC (Bld) 77.6 % Critically high 43.0-75.0 [facility] Comment on above: Performed By: #### C BC ####[facility] Rqqnknhgib7485 [place] [address]Dr. Farhat Leal Neutrophils/100 WBC (Bld) 81.3 % Critically high 43.0-75.0 [facility] Comment on above: Performed By: #### C BC ####[facility] Szqlhuxojq39[address] [place], [place] [address]Dr. Farhat Leal Platelet mean volume (Bld) [Entitic vol] 9.7 fL Normal 9.5-13.5 [facility] Comment on above: Performed By: #### C BC ####[facility] Kzigaywlnl[address] [place], [place] [address]Dr. Farhat Leal Platelet mean volume (Bld) [Entitic vol] 9.9 fL Normal 9.5-13.5 [facility] Comment on above: Performed By: #### C BC ####[facility] Qdmaiyntib98[address] [place], [place] [address]Dr. Farhat Leal PLT 171 103/ul Normal 150-450 [facility] Comment on above: Performed By: #### C BC ####[facility] Tgtvwbvgix7[address] [place], [place] [address]Dr. Farhat Leal PLT 169 103/ul Normal 150-450 [facility] Comment on above: Performed By: #### C BC ####[facility] Biklzvpbzs0935 [place] [address]Dr. Farhat Leal RBC 4.30 106/ul Critically low 4.70-6.10 [facility] Comment on above: Performed By: #### C BC ####[facility] Rjqedothcg9765 [place], [place] [address]Xd. Farhat Leal RBC 4.46 106/ul Critically low 4.70-6.10 [facility] Comment on above: Performed By: #### C BC ####[facility] Tnfdwjsobe7438 [place], [place] [address]Ma. Farhat Leal WBC 8.9 103/ul Normal 4.0-11.0 [facility] Comment on above: Performed By: #### C BC ####[facility] Bwxmcnbuaq9306 [place], [place] [address]Nv. Farhat Leal WBC 9.6 103/ul Normal 4.0-11.0 [facility] Comment on above: Performed By: #### C BC ####[facility] Ulutcknqoq6649 [place] [id number]. Farhat Leal Covid-19 PCR (CVDTB)on SARS-CoV-2 (COVID-19) RNA JOSH+probe Ql (Unsp spec) Not detected Normal NOT DETECTED [facility] Comment on above: Result Comment: [...] for this test is supported by the [employer] of [employer] and Human Service's declaration that [...] Performed By: #### C VDTBH ####[facility] Vlikulnwle5290 [place] [id number]. Farhat Leal PROF 14(COMP METB)on 022 Albumin [Mass/Vol] 2.5 g/dL Critically low 3.4-5.0 [facility] Comment on above: Performed By: #### T SH, CMP ####[facility] Awczzqotnh9202 [place] [address]Dr. Farhat Leal Albumin [Mass/Vol] 2.6 g/dL Critically low 3.4-5.0 [facility] Comment on above: Performed By: #### C MP ####[facility] Aktfwjfldh014[address] [place], [place] [address]Dr. Farhat Leal Albumin/Globulin [Mass ratio] 0.7 {ratio} Normal [facility] Comment on above: Performed By: #### T MYRIAM, CMP ####[facility] Yxfkzzhwss78[address] [place], [place] [address]Dr. Farhat Leal Albumin/Globulin [Mass ratio] 0.7 {ratio} Normal [facility] Comment on above: Performed By: #### C MP ####[facility] Ogsczonjcu4[address] [place], [place] [address]Dr. Farhat Leal ALP [Catalytic activity/Vol] 83 U/L Normal 46-116 [facility] Comment on above: Performed By: #### T MYRIAM, CMP ####[facility] Boiyhvqfez600[address] [place], [place] [address]Dr. Madelynlorri Leal ALP [Catalytic activity/Vol] 88 U/L Normal 46-116 [facility] Comment on above: Performed By: #### C MP ####[facility] Rwmdbjasfv568[address] [place], [place] [address]Dr. Farhat Leal ALT [Catalytic activity/Vol] 16 U/L Normal 16-63 [facility] Comment on above: Performed By: #### T SH, CMP ####[facility] Yxljbpiqlz2159[address] [place], [place] [address]Dr. Madelynlorri Leal ALT [Catalytic activity/Vol] 15 U/L Critically low 16-63 [facility] Comment on above: Performed By: #### C MP ####[facility] Qwpxbohnqt9555 [place] [id number]. Farhat Leal Anion gap [Moles/Vol] 9.7 mmol/L Normal [facility] Comment on above: Performed By: #### T SH, CMP ####[facility] [address]jqkvthh[address] [place], [place] [address]Dr. Farhat Leal Anion gap [Moles/Vol] 11.7 mmol/L Normal [facility] Comment on above: Performed By: #### C MP ####[facility] Melypfkqym0069[address] [place], [place] [address]Dr. Farhat Leal AST [Catalytic activity/Vol] 27 U/L Normal 15-37 [facility] Comment on above: Performed By: #### T SH, CMP ####[facility] Gyymcxkndd3940[address] [place], [place] [address]Dr. Farhat Leal AST [Catalytic activity/Vol] 25 U/L Normal 15-37 [facility] Comment on above: Performed By: #### C MP ####[facility] Zphntilpex9814[address] [place], [place] [address]Dr. Madelynlan Leal Bilirubin [Mass/Vol] 0.5 mg/dL Normal 0.2-1.0 [facility] Comment on above: Performed By: #### T SH, CMP ####[facility] Ihlrzcqpef230[address] [place], [place] [address]Dr. Madelynlan Leal Bilirubin [Mass/Vol] 0.6 mg/dL Normal 0.2-1.0 [facility] Comment on above: Performed By: #### C MP ####[facility] Hbymcejuwr4357[address] [place], [place] [address]Dr. Madelynlan Leal Calcium [Mass/Vol] 8.8 mg/dL Normal 8.5-10.1 [facility] Comment on above: Performed By: #### T SH, CMP ####[facility] Bjpswarxml8436[address] [place], [place] [address]Dr. Madelynlan Leal Calcium [Mass/Vol] 8.9 mg/dL Normal 8.5-10.1 The [facility] Comment on above: Performed By: #### C MP ####[facility] Qvzvkbdhhh[address] [place], [place] [address]Dr. Yilan Leal Chloride [Moles/Vol] 95 mmol/L Critically low 98-107 [facility] Comment on above: Performed By: #### T SH, CMP ####[facility] Xcztetisxn276[address] [place], [place] [address]Dr. Yilan Leal Chloride [Moles/Vol] 93 mmol/L Critically low 98-107 [facility] Comment on above: Performed By: #### C MP ####[facility] Ykdppslfaq75[address] [place], [place] [address]Dr. Yilan Leal CO2 [Moles/Vol] 30.5 mmol/L Normal 21.0-32.0 The [facility] Comment on above: Performed By: #### T SH, CMP ####[facility] Qsuwqcdfnq6[address] [place], [place] [address]Dr. Yilan Leal CO2 [Moles/Vol] 28.9 mmol/L Normal 21.0-32.0 [facility] Comment on above: Performed By: #### C MP ####[facility] [address] [place], [place] [id number]. Yilan Leal Creatinine [Mass/Vol] 2.18 mg/dL Critically high 0.70-1.30 [facility] Comment on above: Performed By: #### T SH, CMP ####[facility] John[address] [place], [place] [address]Dr. Yilan Leal Creatinine [Mass/Vol] 2.09 mg/dL Critically high 0.70-1.30 [facility] Comment on above: Performed By: #### C MP ####[facility] Ice[address] [place], [place] [address]Dr. Yilan Leal EGFR-AF ICELANDIC 36 mL/min/1.73m2 Critically low >=60 [facility] Comment on above: Performed By: #### T SH, CMP ####[facility] [address] [place], [place] [address]Dr. Yilan Leal EGFR-AF ICELANDIC 38 mL/min/1.73m2 Critically low >=60 [facility] Comment on above: Performed By: #### C MP ####[facility] [address] [place] [id number]. Yilan Leal EGFR-NON AF ICELANDIC 30 mL/min/1.73m2 Critically low >=60 [facility] Comment on above: Performed By: #### T SH, CMP ####[facility] [address] [place] [id number]. Yilan Leal EGFR-NON AF ICELANDIC 31 mL/min/1.73m2 Critically low >=60 [facility] Comment on above: Performed By: #### C MP ####[facility] [address] [place] [id number]. Madelynlan Leal Globulin (S) [Mass/Vol] 3.5 g/dL Normal [facility] Comment on above: Performed By: #### T SH, CMP ####[facility] K[address] [place], [place] [address]Dr. Madelynlan Leal Globulin (S) [Mass/Vol] 3.7 g/dL Normal [facility] Comment on above: Performed By: #### C MP ####[facility] [address] [place] [address]Dr. Madelynlan Leal Glucose [Mass/Vol] 141 mg/dL Critically high 74-106 [facility] Comment on above: Performed By: #### T SH, CMP ####[facility] [address] [place] [address]Dr. Madelynlan Leal Glucose [Mass/Vol] 214 mg/dL Critically high 74-106 [facility] Comment on above: Performed By: #### C MP ####[facility] [address] [place], [place] [address]Dr. Madelynlan Leal Potassium [Moles/Vol] 5.2 mmol/L Critically high 3.5-5.1 [facility] Comment on above: Performed By: #### T SH, CMP ####[facility] [address] [place], [place] [address]Dr. Yilan Leal Potassium [Moles/Vol] 5.6 mmol/L Critically high 3.5-5.1 [facility] Comment on above: Performed By: #### C MP ####[facility] [address] [place] [id number]. Yilan Leal Protein [Mass/Vol] 6.0 g/dL Critically low 6.4-8.2 [facility] Comment on above: Performed By: #### T SH, CMP ####[facility] [address] [place], [place] [address]Dr. Yilan Leal Protein [Mass/Vol] 6.3 g/dL Critically low 6.4-8.2 [facility] Comment on above: Performed By: #### C MP ####[facility] [address] [place], [place] [address]Dr. Yilan Leal Sodium [Moles/Vol] 130 mmol/L Critically low 136-145 [facility] Comment on above: Performed By: #### T SH, CMP ####[facility] [address] [place], [place] [address]Dr. Yilan Leal Sodium [Moles/Vol] 128 mmol/L Critically low 136-145 [facility] Comment on above: Performed By: #### C MP ####[facility] L[address] [place], [place] [address]Dr. Yilan Leal Urea nitrogen [Mass/Vol] 63.0 mg/dL Critically high 7.0-18.0 [facility] Comment on above: Performed By: #### T SH, CMP ####[facility] [address] [place], [place] [address]Dr. Yilan Leal Urea nitrogen [Mass/Vol] 65.0 mg/dL Critically high 7.0-18.0 [facility] Comment on above: Performed By: #### C MP ####[facility] [address] [place], [place] [address]Dr. Yilan Leal Urea nitrogen/Creatinine [Mass ratio] 28.9 mg/mg Normal [facility] Comment on above: Performed By: #### T SH, CMP ####[facility] [address] [place], [place] [address]Dr. Yilan Leal Urea nitrogen/Creatinine [Mass ratio] 31.1 mg/mg Normal [facility] Comment on above: Performed By: #### C MP ####[facility] [address] [place] [address]Dr. Farhat Leal PROTIMEon 09-18-2021 INR Coag (PPP) [Relative time] 1.06 {INR} Normal [facility] Comment on above: Performed By: #### P T, PTT ####[facility] [address] [place] [address]Dr. Farhat Leal INR GUIDELINES SEE BELOW Normal [facility] Comment on above: Result Comment: MALINA RED INR: 2.0 - 3.0 CONDITIONS NOT LISTED BELOW 2.5 - 3.5 FOR PROSTHETIC HEART VALVE REPLACEMENT 2.5 - 3.5 RECURRENT THROMBOSIS Performed By: #### P T, PTT ####[facility] [address] [place] [address]Dr. Farhat Leal PT Coag (PPP) [Time] 11.4 s Normal 9.0-11.6 [facility] Comment on above: Performed By: #### P T, PTT ####[facility] [address] [place] [address]Dr. Farhat Leal PTTon 09-18-2021 aPTT Coag (Bld) [Time] 27.9 s Normal 22.3-36.2 [facility] Comment on above: Performed By: #### P T, PTT ####[facility] [address] [place] [address]Dr. Farhat Leal TSHon 09-18-2021 TSH 7.099 uIU/mL Critically high 0.358-3.740 [facility] Comment on above: Performed By: #### T SH, CMP ####[facility] [address] [place], [place] [address]Dr. Farhat Leal US SALOME DOP LEG RTon 09-19-19 US SALOME DOP LEG RT Normal [facility] XR HIP RT 2 3V W PELVISon XR HIP RT 2 3V W PELVIS Normal [facility] Social History Date Type Detail Facility Start: 03-18-2023 Alcohol intake Ex-drinker (finding) [facility] Start: 02-26-2022 End: 10-20-2022 Sex Assigned At [facility] Work Phone: Start: 09-25-2021 History SDOH Financial 5 [facility] Start: 09-25-2021 History SDOH Food Worry 1 [facility] Start: 09-25-2021 History SDOH Transpo rt Med 2 [facility] Start: 09-14-2021 End: 01-12-2022 Exposure to SARS-CoV-2 (event) Not sure [facility] Start: 04-08-2021 End: 02-26-2022 Alcohol intake Current drinker of alcohol (finding) [facility] Start: 03-09-2011 End: 07-07-2022 Tobacco smoking status NHIS Ex-smoker [facility] Work Phone: Start: 03-09-2011 End: 10-20-2022 Cigarettes smoked current (pack per day) - Reported 1 [facility] Work Phone: Start: 03-09-2011 End: 02-26-2022 Tobacco use and exposure Smokeless tobacco non-user [facility] Start: 1945 Sex Assigned At Not on file C [facility] Start: 1945 Sex Assigned At Male F [facility] End: 02-15-1975 History of tobacco use Current smoker [facility] Work Phone: End: 02-15-1975 History of tobacco use Cigarette Smoker [facility] Work Phone: How hard is it for y ou to pay for the very basics like food, housing, medical care, and heating Not hard at all [facility] Work Phone: (I/We) worried wheth er (my/our) food would run out before (I/we) got money to buy more. Never true [facility] Work Phone: In the past 12 month s, was there a time when you were not able to pay the mortgage or rent on time? No [facility] Work Phone: How often to you hav e a drink containing alcohol? Never [facility] Vital Signs Date Time Vital Sign Value Performing Clinician Facility 03-18-2023 13:37-0500 Body temperature 98.01 [degF] Ni Petznick DO Work Phone: [facility] 03-18-2023 13:37-0500 Diastolic blood pressure 64 mm[Hg] Ni Petznick DO Work Phone: [facility] 03-18-2023 13:37-0500 Heart rate 72 /min Ni Petznick DO Work Phone: [facility] 03-18-2023 13:37-0500 SaO2% (BldA) [Mass fraction] 98 % Ni Petznick DO Work Phone: [facility] 03-18-2023 13:37-0500 Systolic blood pressure 118 mm[Hg] Ni Petznick DO Work Phone: [facility] 07-20-2022 13:35-0400 Body temperature 97.4 [degF] DO Devno Ball Work Phone: [facility] 07-20-2022 13:35-0400 Diastolic blood pressure 50 mm[Hg] DO Devon Ball Work Phone: [facility] 07-20-2022 13:35-0400 Heart rate 67 /min DO Devon Ball Work Phone: [facility] 07-20-2022 13:35-0400 Respiratory rate 20 /min DO Devon Ball Work Phone: [facility] 07-20-2022 13:35-0400 Systolic blood pressure 98 mm[Hg] DO Devon Ball Work Phone: [facility] 06-29-2022 14:46-0400 Body height 193.04 cm DO Devon Ball Work Phone: [facility] 02-26-2022 13:11-0500 Body temperature 96.6 [...] Diastolic blood pressure 54 mm[Hg] Alissa Major MICA LAYER.CONTENT ANALYST Work Phone: [facility] 01-12-2022 11:00-0500 Heart rate 88 /min Alissa Major MICA LAYER.CONTENT ANALYST Work Phone: [facility] 01-12-2022 11:00-0500 SaO2% (BldA) [Mass fraction] 93 % Alissa Major MICA LAYER.CONTENT ANALYST Work Phone: [facility] 01-12-2022 11:00-0500 Systolic blood pressure 96 mm[Hg] Alissa Major MICA LAYER.CONTENT ANALYST Work Phone: [facility] 01-12-2022 10:12-0500 Body temperature 97.9 [degF] Alissa Major MICA LAYER.CONTENT ANALYST Work Phone: [facility] 01-12-2022 10:12-0500 Respiratory rate 18 /min Alissa Major MICA LAYERSkylarCONTENT ANALYST [facility] [...] [facility] Clinical Notes 06-05-2021 to 05-19-2023 Note Date & Type Note Facility 05-19-2023 Note [place] [facility]rophys[facility] Progress Note Reason for visit: follow [...] at about 50-60 systolic. patient with friend/ local bulk driver from facility, we will take patient to the ER for evaluation ---- --------- Per dr. Alvarez 03/2021 Mr. Almonte, [place] , presents to clinic for routine follow [...] of the right coronary artery with robust zlgk-lx-[id number] collaterals. 5. Normal global left ventricular systolic [...] Follow up with Dr. Galvez in the [facility] in the next 2 weeks; he may follow up with Dr. Orosco as needed for interventional issues. 5. Follow up wi (more content not included)... [facility] 04-11-2023 Evaluation note Encounter Date Diagnosis Assessment [...] (ICD-10 - Z89.619) WC dependent. 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 He is being transported by a local bulk driver. 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 [facility] [id number] Evaluation note* Encounter Date Diagnosis Assessment Notes [...] are maintaining regular scheduled appts with their registration officer. No bleeding complications Dec, Hyperlipidemia LDL [...] fluid balance and to avoid dehydration. Dec, oysterman (current) use of insulin (ICD-10 - Z79.4) [facility] Other 10-26-2023 Evaluation note* Encounter Date Diagnosis Assessment Notes Treatment Notes Treatment Clinical Notes Nov, Longstanding persistent atrial fibrillation (ICD-10 - I48.11) This patient is in NSR or rate controlled. This patient is anticoagulated to prevent thromboembolic events. They are maintaining regular scheduled appts with their registration officer. No bleeding complications Nov, Hyperlipidemia LDL [...] Z94.0) Monthly labs to transplant clinic Nov, FPC (current) use of insulin (ICD-10 - Z79.4) [facility] Other 09-28-2023 Evaluation note* Encounter Date Diagnosis [...] are maintaining regular scheduled appts with their registration officer. No bleeding complications Oct, Type 1 [...] - Z94.0) Continue routine surveillance labs. Oct, oysterman (current) use of insulin (ICD-10 - Z79.4) [facility] Other 09-01-2023 Miscellaneous Notes* Telephone Encounter - Mary Martinez - 10/16/2022 1:08 PM EDT Pharmacy comment: REQUEST FOR 90 DAYS PRESCRIPTION. DX Code Needed. 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 No bleeding complications Sep, Type 1 [...] risk for cerebrovascular and cardiovascular disease. Sep, oysterman (current) use of insulin (ICD-10 - Z79.4) Sep, Kidney transplant status (ICD-10 - Z94.0) f/u transplant clinic Continue surveillance labs [facility] Other 08-08-2023 Miscellaneous Notes* Telephone Encounter - [...] are maintaining regular scheduled appts with their registration officer. No s/s bleeding Aug, Type 1 [...] risk for cerebrovascular and cardiovascular disease. Aug, oysterman (current) use of insulin (ICD-10 - Z79.4) Aug, Kidney transplant status (ICD-10 - Z94.0) Continue close surveillance w/ [employer] Other 07-26-2023 NoteUT Electrophysiology Consult Note Reason [...] at about 50-60 systolic. patient with friend/ local bulk driver from facility, we will take [...] of the right coronary artery with robust uknv-pz-uoccg collaterals. 5. Normal global left ventricular systolic [...] Follow up with Dr. Galvez in the [facility] in the next 2 weeks; he may follow up with Dr. Orosco as needed for interventional issues. 5. Follow up with Dr. Devon Moreira as scheduled. PMH: Past Medical History: Diagnosis Date Abnormal ECG Arrhythmia Atrial fibrillation (CMS/HCC) Chronic kidney disease Coronary artery disease Diabetes mellitus (CMS/HCC) (more content not included)...[facility]07-26-2023 NotePatient here for 1.5 year follow up and device check. Lightheaded in the office today, as BP is very low. He denies chest pain, SOB, palpitations, and bleeding on warfarin. Had routine labs last week. Review of Systems Musculoskeletal: Positive for arthritis, joint pain and myalgias. Neurological: Positive for light-headedness. All other systems reviewed and are negative.[facility] 08-06-2022 Evaluation note* Encounter Date Diagnosis Assessment [...] are maintaining regular scheduled appts with their registration officer. No bleeding complications Jul, Type 1 [...] Monthly labs, ongoing surveillance from transplant clinic [facility] Other 05-15-2023 Progress note Author Sadia Aguilar [facility] June 29, 2022 2:47pm Note Date/Time June 29, 2022 2:46p m [facility] [address] [place] [address] Wound Center Provider Note Signed Patient: Alex Almonte MR#: [id number] : 1945 Acct:[id number] Age/Sex: 76 / M Copies to: DO Sadia Whyte APRN~ HPI Date of Visit Date of Visit: Date of Service: 06/29/2022 Time of Service: 14:45 Narrative HPI: 12/30/21 Alex is a 76 year old male presenting to [facility] wound care for aninitial visit for eval and treatment of a sacral/coccyx area pressure ulcer. He resides at [facility]. There is an FRAMING MACHINE TENDER present for the visit. Medicalhoney gel will [...] his brief that was cleaned by this junior copywriter as well as another nursing staff member, [...] from initial visit here Mode of Arrival/ Drywall Applicator: Facility vehicle Assistive Device Used Today: Wheelchair and Indra Lives with:: Care/Nursing Facility Appetite Description: Within Normal Limits Who helps w/ dressing change?: Nursing Facility Why Do You Need Help?: Can't Reach Ulcer, Limited mobility and Taxing effort to leave home Smoking Status: Former smoker [facility] Medical History (Updated 03/03/22 @ 14:41 [...] Ulcer/Injury Staging: Unstageable Bed Appearance: Beefy Red, [place], Yellow and Rolled Edges Percent of Wound [...] By: <Electronically signed by DAVID Aguilar> 06/29/221446 [facility] Work Phone: 1(292) 585-995605-11-2023 Evaluation note* Encounter Date Diagnosis Assessment Notes [...] are maintaining regular scheduled appts with their registration officer. No bleeding complications June, Hyperlipidemia LDL goal <100 (ICD-10 - E78.5) Instructed on diet and exercise with continued statin therapy.Discussed the beneficial effects of lowering cholesterol in reducing the risk for cerebrovascular and cardiovascular disease. June, FPC (current) use of insulin (ICD-10 - Z79.4) June, Kidney transplant status (ICD-10 - Z94.0) No s/s rejection [facility] Other 04-24-2023 Progress note Author Sadia Aguilar [facility] June 08, 2022 2:10pm Note Date/Time June 08, 2022 2:1 0pm [facility] [address] [place] [address] Wound Center Provider Note Signed Patient: Alex Almonte MR#: [id number] : 1945 Acct:[id number] Age/Sex: 76 / M Copies to: DO Sadia Whyte APRN~ HPI Date of Visit Date of Visit: Date of Service: 06/08/2022 Time of Service: 14:07 Narrative HPI: 12/30/21 Alex is a 76 year old male presenting to [facility] wound care for aninitial visit for eval and treatment of a sacral/coccyx area pressure ulcer. He resides at [facility]. There is an FRAMING MACHINE TENDER present for the visit. Medicalhoney gel will [...] his brief that was cleaned by this junior copywriter as well as another nursing staff member, [...] from initial visit here Mode of Arrival/ Drywall Applicator: Facility vehicle Assistive Device Used Today: Wheelchair and Indra Lives with:: Care/Nursing Facility Appetite Description: Within Normal Limits Who helps w/ dressing change?: Nursing Facility Why Do You Need Help?: Can't Reach Ulcer, Limited mobility and Taxing effort to leave home Smoking Status: Former smoker [facility] Medical History (Updated 03/03/22 @ 14:41 [...] Ulcer/Injury Staging: Unstageable Bed Appearance: Beefy Red, [place], Yellow and Rolled Edges Percent of Wound [...] [address] [facility] Work Phone: 1(240) 980-847904-21-2023 Evaluation note* Encounter Date Diagnosis Assessment Notes [...] are maintaining regular scheduled appts with their registration officer. May, oysterman (current) use of insulin (ICD-10 - Z79.4) May, Kidney transplant status (ICD-10 - Z94.0) routine labs per clinic. 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 No open ulcerations present Pain controlled [facility] Other 03-27-2023 Progress note Author Sadia Aguilar [facility] May 11, 2022 1:41pm Note Date/Time May 11, 2022 1:4 0pm [facility] [address] [place] [address] Wound Center Provider Note Signed Patient: Alex Almonte MR#: [id number] : 1945 Acct:[id number] Age/Sex: 76 / M Copies to: Devon Moreira,DO Sadia Aguilar, MICA LAYER~ HPI Date of Visit Date of Visit: Date of Service: 05/11/2022 Time of Service: 13:38 Narrative HPI: 12/30/21 Alex is a 76 year old male presenting to [facility] wound care for aninitial visit for eval and treatment of a sacral/coccyx area pressure ulcer. He resides at [facility]. There is an FRAMING MACHINE TENDER present for the visit. Medicalhoney gel will [...] his brief that was cleaned by this junior copywriter as well as another nursing staff member, [...] from initial visit here Mode of Arrival/ Drywall Applicator: Facility vehicle Assistive Device Used Today: Wheelchair and Indra Lives with:: Care/Nursing Facility Appetite Description: Within Normal Limits Who helps w/ dressing change?: Nursing Facility Why Do You Need Help?: Can't Reach Ulcer, Limited mobility and Taxing effort to leave home Smoking Status: Former smoker [facility] Medical History (Updated 03/03/22 @ 14:41 [...] Ulcer/Injury Staging: Unstageable Bed Appearance: Beefy Red, [place] and Yellow Percent of Wound Bed Granulated/Red: [...] <Electronically signed by DAVID Aguilar> 05/11/22 1341 [facility] Work Phone: 1(140) 171-318603-23-2023 Evaluation note* Encounter Date Diagnosis Assessment Notes [...] are maintaining regular scheduled appts with their registration officer. 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 Author Type: Physician Type: Progress Notes Filed: 04/24/2022 10:32 AM Note Text: Encounter opened in error, patient not seen.[facility]02-28-2023 Progress note Author Sadia Aguilar [facility] April 14, 2022 2:19pm Note Date/Time April 14, 2022 2:18pm [facility] [address] [place] [address] Wound Center Provider Note Signed Patient: Alex Almonte MR#: [id number] : 1945 Acct:[id number] Age/Sex: 76 / M Copies to: DO Sadia Whyte APRN~ HPI Date of Visit Date of Visit: Date of Service: 04/14/2022 Time of Service: 14:18 Narrative HPI: 12/30/21 Alex is a 76 year old male presenting to [facility] wound care for aninitial visit for eval and treatment of a sacral/coccyx area pressure ulcer. He resides at [facility]. There is an FRAMING MACHINE TENDER present for the visit. Medicalhoney gel will [...] his brief that was cleaned by this junior copywriter as well as another nursing staff member, [...] from initial visit here Mode of Arrival/ Drywall Applicator: Facility vehicle Assistive Device Used Today: Wheelchair and Indra Lives with:: Care/Nursing Facility Appetite Description: Within Normal Limits Who helps w/ dressing change?: Nursing Facility Why Do You Need Help?: Can't Reach Ulcer, Limited mobility and Taxing effort to leave home Smoking Status: Former smoker [facility] Medical History (Updated 03/03/22 @ 14:41 [...] Ulcer/Injury Staging: Unstageable Bed Appearance: Beefy Red, [place] and Yellow Percent of Wound Bed Granulated/Red: [...] <Electronically signed by DAVID Aguilar> 04/14/22 141 [facility] Work Phone: 1(433) 294-742402-16-2023 NotePatient Outreach (KIDMMN) ALEX ALMONTE ([id number]) 1945 M TRN Date Time Provider Department 04/02/22 VAN OLIVAREZ During your visit today, we recorded the following information about you: Allergies As of Date: 04/02/2022 Noted Allergy Reaction PYRIDOSTIGMINE BROMIDE 08/04/2021 8 - GI Upset Date Reviewed: 02/26/2022 Reviewed by: Braden Abel MA - Fully Assessed Visit Diagnosis:Screening for genitourinary condition [Z13.89] Order(s):URINALYSIS, REFLEX MICROSCOPIC [EOM7225] Order #: [id number] Prescriptions as of 04/06/2022 - tacrolimus IR [...] by mouth daily with lunch. Magic [place] with lunch - aspirin, enteric coated (ASPIRIN, ENTERIC COATED) 81 mg EC tablet Take 1 tablet by mouth once daily. - atorvastatin (LIPITOR) 40 mg tablet 1 tablet by ORAL/FEEDING TUBE route daily at bedtime. - predniSONE (DELTASONE) 5 mg tablet TAKE 1 TABLET BY MOUTH EVERY DAY Problem List As Of Date 04/02/2022 Noted Resolved ULCER OF LOWER LIMB, UNSPEC [L97.713] 02/24/2002 DIAB RENAL MANIF ADULT-UNCONTRLLD [E11.29, E11.*02/24/2002 Type 2 diabetes mellitus with diabetic neuropat*02/24/2002 DIABETES UNCOMPL ADULT-UNCONTRLLED [IHI9042] 02/24/2002 KIDNEY TRANSPLANT STATUS [Z94.0] 09/07/2003 PROPHYLACTIC IMMUNOTHERAPY [Z29.8] 07/30/2006 COOK'S ASSISTANT STEROIDS [GJY9795] 07/30/2006 VITAMIN D DEFICIENCY NOS [E55.9] 09/07/2008 [...] diabetes mellitus with diabetic peripher*11/29/2021 Atherosclerosis of menominee artery of extremity w*11/29/2021 Malnutrition of moderate degree (HCC) [E44.0] 12/01/2021 Dermatitis associated with moisture [L30.8] 12/04/2021 Encounter Status:Closed by CONCETTA HOBBS on 04/06/22[facility] [...] - [place]02-07-2023 Progress note Author Sadia Aguilar [facility] March 24, 2022 3:00pm Note Date/Time March 24, 2022 2 :59pm [facility] [address] [place] [address] Wound Center Provider Note Signed Patient: Alex Almonte MR#: [id number] : 1945 Acct:[id number] Age/Sex: 76 / M Copies to: DO Sadia Whyte APRN~ HPI Date of Visit Date of Visit: Date of Service: 03/24/2022 Time of Service: 14:58 Narrative HPI: 12/30/21 Alex is a 76 year old male presenting to [facility] wound care for aninitial visit for eval and treatment of a sacral/coccyx area pressure ulcer. He resides at [facility]. There is an FRAMING MACHINE TENDER present for the visit. Medicalhoney gel will [...] his brief that was cleaned by this junior copywriter as well as another nursing staff member, [...] from initial visit here Mode of Arrival/ Drywall Applicator: Facility vehicle Assistive Device Used Today: Wheelchair and Indra Lives with:: Care/Nursing Facility Appetite Description: Within Normal Limits Who helps w/ dressing change?: Nursing Facility Why Do You Need Help?: Can't Reach Ulcer, Limited mobility and Taxing effort to leave home Smoking Status: Former smoker [facility] Medical History (Updated 03/03/22 @ 14:41 [...] Ulcer/Injury Staging: Unstageable Bed Appearance: Beefy Red, [place] and Yellow Percent of Wound Bed Granulated/Red: [...] <Electronically signed by DAVID Aguilar> 03/24/22 1500 [facility] Work Phone: 1(706) 917-707301-17-2023 Progress note Author Sadia Aguilar [facility] March 03, 2022 2:41pm Note Date/Time March 03, 2022 2 :41pm [facility] [address] [place] [address] Wound Center Provider Note Signed Patient: Alex Almonte MR#: [id number] : 1945 Acct:[id number] Age/Sex: 76 / M Copies to: DO Sadia Whyte APRN~ HPI Date of Visit Date of Visit: Date of Service: 03/03/2022 Time of Service: 14:38 Narrative HPI: 12/30/21 Alex is a 76 year old male presenting to [facility] wound care for aninitial visit for eval and treatment of a sacral/coccyx area pressure ulcer. He resides at [facility]. There is an FRAMING MACHINE TENDER present for the visit. Medicalhoney gel will [...] his brief that was cleaned by this junior copywriter as well as another nursing staff member, [...] from initial visit here Mode of Arrival/ Drywall Applicator: Facility vehicle Assistive Device Used Today: Wheelchair and Indra Lives with:: Care/Nursing Facility Appetite Description: Within Normal Limits Who helps w/ dressing change?: Nursing Facility Why Do You Need Help?: Can't Reach Ulcer, Limited mobility and Taxing effort to leave home Smoking Status: Former smoker [facility] Medical History (Updated 03/03/22 @ 14:41 [...] Ulcer Pressure Ulcer/Injury Staging: Unstageable Bed Appearance: [place] and Yellow Percent of Wound Bed Granulated/Red: 90 Percent of Devitalized: 10 Length (cm): 2.2 Width (cm): 1.8 Depth (cm): 1.9 CM Sq: 3.960 Surrounding Tissue Appearance: [place], Hyperpigmented and Satellite lesions Surrounding Tissue Temp: [...] [address] [facility] Work Phone: 1(731) 496-680701-13-2023 Miscellaneous Notes* Telephone Encounter - RAUL Davidson [...] [facility] NoteHNO ID: [id number] Author: Hina Peterson MD Service: ? Author Type: Physician Type: Progress Notes Filed: 02/26/2022 4:31 PM Note Text: [facility] [place] DEPARTMENT OF VASCULAR SURGERY OUTPATIENT VISIT DATE [...] his postop visit. He has been in senior care since then and has been recovering from his acute on chronic congestive heart failure. His wound has largely been healing without any issues and the maxwell and sutures were removed at the nursing facility. He comes here with a lateral wound eschar. He denies any fevers, chills, or any drainage. He is on anticoagulation. 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 insulin glargine (LANTUS SOLOSTAR, KRISTIN LANDRUM) 100 unit/mL (3 mL) Inject 17 [...] by mouth daily with lunch. Magic [place] with lunch aspirin, enteric coated (ASPIRIN, ENTERIC [...] not included. [facility] [place] DEPARTMENT OF VASCULAR SURGERY OUTPATIENT VISIT DATE [...] his postop visit. He has been in senior care since then and has been recovering from his acute on chronic congestive heart failure. His wound has largely been healing without any issues and the maxwell and sutures were removed at the community hospital facility. He comes here with a lateral wound eschar. He denies any fevers, chills, or any drainage. He is on anticoagulation. PAST MEDICAL HISTORY Diagnosis Date Atherosclerosis of menominee artery of extremity with ulceration ([facility] [...] by mouth daily with lunch. Magic [place] with lunch aspirin, enteric coated (ASPIRIN, ENTERIC [...] - 02/19/2022 12:22 PM ESTSummary: rescheduled appt Zevcasey Almonte appointments have been scheduled accordingly. Patient [...] Home and cell number(Ask for Alex's nurse) [phone] Diagnosis 4 mo f/u wound check Yumiko Mcclain documented in this encounterOur Lady Of [facility] [place]-05-2023 Miscellaneous Notes* Telephone Encounter - Augusta Medrano RN - 02/19/2022 11:11 AM EST Alex Kate Ray's nursing facility, [facility], called regarding elevated tacrolimus level (23.9). Spoke [...] - [place]12-27-2022 Progress note Author Sadia Aguilar [facility] February 10, 2022 3:47pm Note Date/Time February 10, 2022 3:47pm [facility] [address] [place] [address] Wound Center Provider Note Signed Patient: Alex Almonte MR#: [id number] : 1945 Acct:[id number] Age/Sex: 76 / M Copies to: DO Sadia Whyte APRN~ HPI Date of Visit Date of Visit: Date of Service: 02/10/2022 Time of Service: 15:44 Narrative HPI: 12/30/21 Alex is a 76 year old male presenting to [facility] wound care for aninitial visit for eval and treatment of a sacral/coccyx area pressure ulcer. He resides at [facility]. There is an FRAMING MACHINE TENDER present for the visit. Medicalhoney gel will [...] his brief that was cleaned by this junior copywriter as well as another nursing staff member, few weeks to follow up Subjective Pain Coccyx: Pain Description: Intermittent Pain Intensity: 0 Wound/Ulcer History When did wound start?: 4 weeks ago- from initial visit here Mode of Arrival/ Drywall Applicator: Facility vehicle Assistive Device Used Today: Wheelchair and Indra Lives with:: Care/Nursing Facility Appetite Description: Within Normal Limits Who helps w/ dressing change?: Nursing Facility Why Do You Need Help?: Can't Reach Ulcer, Limited mobility and Taxing effort to leave home Smoking Status: Former smoker [facility] Medical History (Updated 01/20/22 @ 14:21 [...] Ulcer Pressure Ulcer/Injury Staging: Unstageable Bed Appearance: [place] and Yellow Percent of Wound Bed Granulated/Red: 90 Percent of Devitalized: 10 Length (cm): 2.5 Width (cm): 2.3 Depth (cm): 2.1 CM Sq: 5.750 Surrounding Tissue Appearance: [place], Hyperpigmented and Satellite lesions Surrounding Tissue Temp: [...] <Electronically signed by DAVID Aguilar> 02/10/[address] [facility] Work Phone: 1(703) 697-110012-22-2022 NoteHNO ID: [id number] Author: Asia Pike MD Service: ? Author Type: Physician Type: Progress Notes Filed: 02/05/2022 9:38 AM Note Text: [facility] [place] Transplant Follow up Portions of this note [...] BP. Offered water and snacks patient declined. Idnra scale at [facility]: 166.2 lbs per patient. Bed sore on coccyx causing discomfort. Being changed regularly at [facility]- reported to be smaller around but still as deep. Patient not very up to date with medications. Patient brought paperwork from [employer] with all medications being received. Patient unsure if they have been drawing labs regularly. Last Tac from 01/19: 12.9 and K 5.9. In need of current labs. Lab orders will be sent with patient and follows as below: [facility] Trans[facility] Standing Lab Orders [address] [place], [place] [address] February 05, 2022 Alex Almonte 1945 [id number] STANDARD TESTING: Diagnosis Codes: Z94.0 Kidney Transplant [...] AT YOUR LABORATORY FACILITY AND FAX TO [phone]. PLEASE CALL [phone]. Provider: Dr. Pike Current Outpatient Medications Medication [...] by mouth daily with lunch. Magic [place] with lunch aspirin, enteric coated (ASPIRIN, ENTERIC COATED) 81 mg EC tablet Take 1 tablet by mouth once daily. atorvastatin (LIPITOR) 40 mg tablet 1 tablet by ORAL/FEEDING TUBE route daily at bedtime. (more content not included)...[facility]12-[facility]-20[facility] History of Present illness Narrative* Asia Pike MD - 02/05/2022 8:20 AM EST Images from the original note were not included. [facility] [place] Transplant Follow up Portions of this note [...] date with medications. Patient brought paperwork from [employer] with all medications being received. Patient unsure if they have been drawing labs regularly. Last Tac from 01/19: 12.9 and K 5.9. In need of current labs. Lab orders will be sent with patient and follows as below: [facility] Pan[facility] Transplant Standing Lab Orders [address] [place], [place] [address] February 05, 2022 Alex Almonte 1945 [id number] STANDARD TESTING: Diagnosis Codes: Z94.0 Kidney Transplant [...] AT YOUR LABORATORY FACILITY AND FAX TO [phone]. PLEASE CALL [phone]. Provider: Dr. Pike Current Outpatient Medications Medication [...] by mouth daily with lunch. Magic [place] with lunch aspirin, enteric coated (ASPIRIN, ENTERIC [...] All other system reviews negative. Augusta Medrano sieve grader tender: February 05, 2022 9:34 AM I have [...] - [place]12-06-2022 Progress note Author Sadia Aguilar [facility] January 20, 2022 2:21pm Note Date/Time January 20, 2022 2 :21pm [facility] [address] [place] [address] Wound Center Provider Note Signed Patient: Alex Almonte MR#: [id number] : 1945 Acct:[id number] Age/Sex: 76 / M Copies to: DO Sadia Whyte APRN~ HPI Date of Visit Date of Visit: Date of Service: 01/20/2022 Time of Service: 14:17 Narrative HPI: 12/30/21 Alex is a 76 year old male presenting to [facility] wound care for aninitial visit for eval and treatment of a sacral/coccyx area pressure ulcer. He resides at [facility]. There is an FRAMING MACHINE TENDER present for the visit. Medicalhoney gel will [...] from initial visit here Mode of Arrival/ Drywall Applicator: Facility vehicle Assistive Device Used Today: Wheelchair and Indra Lives with:: Care/Nursing Facility Appetite Description: Within Normal Limits Who helps w/ dressing change?: Nursing Facility Why Do You Need Help?: Can't Reach Ulcer, Limited mobility and Taxing effort to leave home Smoking Status: Former smoker [facility] Medical History (Updated 01/20/22 @ 14:21 [...] Ulcer Pressure Ulcer/Injury Staging: Unstageable Bed Appearance: [place] and Yellow Percent of Wound Bed Granulated/Red: 40 Percent of Devitalized: 60 Length (cm): 5.2 Width (cm): 3.4 Depth (cm): 1.8 CM Sq: 17.680 Surrounding Tissue Appearance: [place] and Hyperpigmented Surrounding Tissue Temp: Warm Drainage [...] <Electronically signed by DAVID Aguilar> 01/20/22 1421 [facility] Work Phone: 1(829) 805-343812-06-2022 Miscellaneous Notes* Telephone Encounter - Van Olivarez APRN.CNP - 01/20/2022 1:12 PM EST Labs noted from yesterday. Pt is currently residing at [facility], I spoke with the Nurse, [...] BRIEF OPERATIVE / PROCEDURE NOTE LOG ID: [id number] SURGERY/PROCEDURE DATE: 01/12/2022 INCISION/PROCEDURE START TIME: 10:32 AM INCISION CLOSE/PROCEDURE END TIME: 10:35 AM SURGEON(S)/PROCEDURALIST(S) AND EMERGENCY MEDICAL SERVICE COORDINATOR(S): iMsbah Landis PA-C SURGERY/PROCEDURE(S): Removal tunneled vascular access [...] Munira Brothers and nurse at [facility], Jada ([phone]) andconfirmed appt. for Grehard removal scheduled on 01/12/22, at [facility]. If instructions are not followed your procedure [...] Center) and check in for your procedure. Continuity Editor/Transportation: How will you be arriving for your procedure? Ambulance service. To be arranged by [facility]. If you develop any of the following symptoms before your procedure, please call [phone]. Chills, joint pain, rash, sore throat, cough, loss of smell, reddened eyes, vomiting, abdominal pains, diarrhea, loss of taste, severe headache, weakness, bruising or bleeding, fever, muscle pain, shortness of breath Recovery expectations: You can expect to be in recovery for 30 minutes following the procedure. Written instructions provided to patient via [employer] If you have any questions please call [phone] documented in this encounterOur Lady Of [facility]cy [facility] - [place]11-15-2022 Progress note Author Sadia Aguilar [facility] December 30, 2021 1:49pm Note Date/Time December 30, 2021 1:49pm [facility] [address] [place] [address] Wound Center Provider Note Signed Patient: Alxe Almonte MR#: [id number] : 1945 Acct:[id number] Age/Sex: 76 / M Copies to: Devon Moreira,DO Sadia Aguilar APRN~ HPI Date of Visit Date of Visit: Date of Service: 12/30/2021 Time of Service: 13:44 Narrative HPI: 12/30/21 Alex is a 76 year old male presenting to [facility] wound care for aninitial visit for eval and treatment of a sacral/coccyx area pressure ulcer. He resides at [facility]. There is an FRAMING MACHINE TENDER present for the visit. Medicalhoney gel will [...] start?: 4 weeks ago Mode of Arrival/ Drywall Applicator: Facility vehicle Assistive Device Used Today: Wheelchair and Indra Lives with:: Care/Nursing Facility Appetite Description: Within Normal Limits Who helps w/ dressing change?: Nursing Facility Why Do You Need Help?: Can't Reach Ulcer, Limited mobility and Taxing effort to leave home Smoking Status: Former smoker [facility] Medical History (Updated 12/30/21 @ 13:49 [...] 0.1 CM Sq: 38.500 Surrounding Tissue Appearance: [place] and Hyperpigmented Surrounding Tissue Temp: Warm Drainage [...] <Electronically signed by DAVID Aguilar> 12/30/[address] [facility] Work Phone: 1(439) 473-878011-15-2022 History of Present illness Narrative* Paresh Fonseca [...] the rehab facility He is currently at [facility] in [facility] Seen on video together with Zoe -history obtained from bedside nursing. he is getting up in a chair, working with PT diet is back to regular hes doing well. 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 has scabs on the R lateral side but no wound care concerns. It continues to heal. He has a follow-up with vascular surgery later December 2021. has a sacral wound -- he has local wound care following this at [facility] WBC 6.0, creatinine -- [...] by mouth daily with lunch. Magic [place] with lunch aspirin, enteric coated (ASPIRIN, ENTERIC [...] is a 76 year old male from [facility]. Here today for copat follow-up for vancomycin x4 weeks for MRSA bacteremia He was transferred from [facility] on 11/28/2021 for further surgical management [...] post right heel I&D at [facility] on 11/24/2021. MRSA, Enterobacter cloacae [...] will need to coordinate with his SNF [phone] --our ID office will need to arrange for IR gerhard removal. Return to ID as needed 10 Minutes spent via virtual visit. SIGNATURE: Paresh Fonseca MD PATIENT NAME: Alex Almonte DATE: December 30, 2021 TIME: 9:52 AM documented in this encounterOur Lady Of Mercy [facility] - [place]11-01-2022 Miscellaneous Notes* Telephone Encounter - Sulma Pardo - 12/16/2021 3:13 PM EDT Pt physical therapy aides teacher is requesting orders for Stomp ampushield to be taken off pressure relief because it is causing sores on the thigh. Thanks, Sulma Pardo Leakage Tester documented in this encounterOur Lady Of Mercy Hospital - [place]10-31-2022 Miscellaneous Notes* Telephone Encounter - Gwen Alfredo Adm Asst I - 12/15/2021 4:11 PM EDT Rupa LYLES from [facility] [phone] called to report IV Vancomycin was started [...] serious illness Are taking any medications (prescription, cncz-iax-manguxo, vitamins, or herbal products) How will I receive EVUSHELD? EVUSHELD consists of two investigational medicines, tixagevimab and cilgavimab. You will receive 1 dose of EVUSHELD, consisting of 2 separate injections (tixagevimab and cilgavimab). EVUSHELD will be given to you by your healthcare provider as 2 intramuscular injections, given one after the other. Viruses can covered button maker time (mutate) and develop into a slightly [...] caused by certain SARS-CoV-2 variants: Viruses can covered button maker time (mutate) and develop into a slightly [...] treatment or prevention of COVID-19 go to https://www.fda.gov/gofopdqao-oqdivedlabbu-sof- response/eih-wodwe-lfladhrskr-led-vmatsv-xarinqgku/ysbemudwd-zli-xlqqgwerowyyv for more information. It is your choice [...] not go away. Report side effects to [employer] at www.fda.gov/medwatch or call 2-302-VJM-4793 or call [employer] . Additional Information If you have questions, visit the website or call the telephone number provided below. Website Telephone number http://www.Stio How can I learn more about COVID-19? Ask your healthcare provider. Visit https://www.cdc.gov/COVID19 Contact your local or state public health department. What is an Emergency Use Authorization? The [place] FDA has made EVUSHELD (tixagevimab co-packaged with cilgavimab) available under an emergency access mechanism called an Emergency Use Authorization EUA. The EUA is supported by a Smalltalk Developer of Health and Human Service (HHS) declaration [...] monohydrate, polysorbate 80, sucrose, water. Distributed by: [employer] [place], [place] Manufactured for: [employer] [place], [place] [employer] 2021. All rightsreserved. documented in this encounterOur Lady Of Mercy Hospital - [place]10-21-2022 Miscellaneous Notes* Telephone Encounter - Paresh Fonseca MD - 12/05/2021 3:05 PM EDT Evusheld (tixagevimab/cilgavimab) Eligibility and Patient Discussion The patient agrees to receive Evusheld (tixagevimab 300 mg and cilgavimab 300 mg) at [employer]. The patient verbalized understanding of repeating a COVID test 72 hours prior to the injections. called up patient in response to her [employer] message today she tested covid negative on a rapid test on Wednesday this week Discussed evushed fact sheet and she agrees to proceed she will retest again today to be scheduled for Friday 12/[facility] Paresh Fonseca MD documented in this encounterOur [...] note were not included. [facility] [place] Verdugo Department of Cardiovascular Medicine SECTION [...] DVT scan. Leg elevation. No Reeder DO, [facility] Vascular Medicine documented in this encounter[address]16-2022 History of Past illness Narrative* Problem Noted Date Resolved Date Altered tissue perfusion 022 documented as of this encounter (statuses as of 09/30/2021) [address]16-2022 History of Past illness Narrative* Problem Noted Date Resolved Date Altered tissue perfusion 022 documented as of this encounter (statuses as of 10/09/2021) [address]16-2022 History of Past illness Narrative* Problem Noted Date Resolved Date Altered tissue perfusion 022 documented as of this encounter (statuses as of 11/18/2021) [address]16-2022 History of Past illness Narrative* Problem Noted Date Resolved Date Altered tissue perfusion 09/30/2 022 documented as of this encounter (statuses as of 12/01/2021) [address]16-2022 History of Past illness Narrative* Problem Noted Date Resolved Date Altered tissue perfusion 09/30/2 022 documented as of this encounter (statuses as of 12/05/2021) [address]16-2022 History of Past illness Narrative* Problem Noted Date Resolved Date Altered tissue perfusion 09/30/2 022 documented as of this encounter (statuses as of 12/08/2021) [address]16-2022 History of Past illness Narrative* Problem Noted Date Resolved Date Altered tissue perfusion 09/30/2 022 documented as of this encounter (statuses as of 12/08/2021) [address]16-2022 History of Past illness Narrative* Problem Noted Date Resolved Date Altered tissue perfusion 16/2 022 documented as of this encounter (statuses as of 12/12/2021) [address]16-2022 History of Past illness Narrative* Problem Noted Date Resolved Date Altered tissue perfusion 16/2 022 documented as of this encounter (statuses as of 12/15/2021) [address]16-2022 History of Past illness Narrative* Problem Noted Date Resolved Date Altered tissue perfusion 16/2 022 documented as of this encounter (statuses as of 12/16/2021) [address]16-2022 History of Past illness Narrative* Problem Noted Date Resolved Date Altered tissue perfusion 16/2 022 documented as of this encounter (statuses as of 12/31/2021) [address]2022 History of Past illness Narrative* Problem Noted Date Resolved Date Altered tissue perfusion 16/2 022 documented as of this encounter (statuses as of 01/13/2022) [address]16-2022 History of Past illness Narrative* Problem Noted Date Resolved Date Altered tissue perfusion 16/2 022 documented as of this encounter (statuses as of 01/20/2022) [address]16-2022 History of Past illness Narrative* Problem Noted Date Resolved Date Altered tissue perfusion 16/2 022 documented as of this encounter (statuses as of 02/06/2022) [address]16-2022 History of Past illness Narrative* Problem Noted Date Resolved Date Altered tissue perfusion 16/2 022 documented as of this encounter (statuses as of 02/20/2022) [address]16-2022 History of Past illness Narrative* Problem Noted Date Resolved Date Altered tissue perfusion 16/2 022 documented as of this encounter (statuses as of 02/26/2022) [address]16-2022 History of Past illness Narrative* Problem Noted Date Resolved Date Altered tissue perfusion 16/2 022 documented as of this encounter (statuses as of 02/27/2022) [address]16-2022 History of Past illness Narrative* Problem Noted Date Resolved Date Altered tissue perfusion 16/2 022 documented as of this encounter (statuses as of 03/21/2022) [address]2022 History of Past illness Narrative* Problem Noted Date Resolved Date Altered tissue perfusion 16/2 022 documented as of this encounter (statuses as of 03/30/2022) [address]2022 History of Past illness Narrative* Problem Noted Date Resolved Date Altered tissue perfusion 16/2 022 documented as of this encounter (statuses as of 04/06/2022) [facility]08-16-2022 [...] advise. Rosibel Link Adm [facility] [...] understands. Van Olivarez APRN.CNP [facility] Screening for genitourinary condition Screening for other and unspecified genitourinary condition [facility]* Diagnosis Acute deep vein thrombosis (DVT) of proximal end of right lower extremity (HCC)- Primary PAD (peripheral artery disease) ([facility]) Peripheral vascular disease, unspecified Nonhealing ulcer of heel ([facility]) Anticoagulation management encounter Encounter for therapeutic drug monitoring documented in this encounter [facility] note* Diagnosis Encounter for prophylactic measures, unspecified- Primary documented in this encounter [facility] note* Diagnosis Kidney replaced by transplant- Primary documented in this [facility]* Diagnosis MRSA bacteremia- Primary Bacteremia Diabetic foot ulcer with osteomyelitis ([facility]) Type II or unspecified type diabetes mellitus with other specified manifestations, not stated as uncontrolled ILIANA (acute kidney injury) ([facility]) Acute kidney failure, unspecified documented in this encounter [facility]* Diagnosis Kidney replaced by transplant- Primary 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 [facility] current use of immunosuppressive drug documented in this [facility]* Diagnosis Hx of BKA, right [...] (HCC) Atrial fibrillation documented in this encounter [facility] note* Diagnosis Screening for genitourinary condition Screening for other and unspecified genitourinary condition documented in this encounter [facility] note* Diagnosis Onset Date Resolution Status At high risk for skin breakdown chronic Diabetes chronic Fecal incontinence chronic Limited mobility chronic Poor appetite chronic Pressure ulcer of sacral region, unstageable chronic Candidiasis resolved [facility] Work Phone: Evaluation noteNo InformationNoKamicat Other Evaluation note* Diagnosis Kidney replaced by transplant- Primary documented in this encounter [facility]* Diagnosis Type 1 diabetes mellitus [...] COLONOSCOPY 1995,2001, 2014 Hospitalization History see above [employer] Other Progress note Author Sadia Aguilar [facility] July 20, 2022 1:48pm Note Date/Time July 20, 2022 1:48p m [facility] [address] [place] [address] Wound Center Provider Note Signed Patient: Alex Almonte MR#: [id number] : 1945 Acct:[id number] Age/Sex: 76 / M Copies to: DO Sadia Whyte, MICA LAYER~ HPI Date of Visit Date of Visit: Date of Service: 07/20/2022 Time of Service: 13:46 Narrative HPI: 12/30/21 Alex is a 76 year old male presenting to [facility] wound care for aninitial visit for eval and treatment of a sacral/coccyx area pressure ulcer. He resides at [facility]. There is an FRAMING MACHINE TENDER present for the visit. Medicalhoney gel will [...] his brief that was cleaned by this junior copywriter as well as another nursing staff member, [...] from initial visit here Mode of Arrival/ Drywall Applicator: Facility vehicle Assistive Device Used Today: Wheelchair and Indra Lives with:: Care/Nursing Facility Appetite Description: Within Normal Limits Who helps w/ dressing change?: Nursing Facility Why Do You Need Help?: Can't Reach Ulcer, Limited mobility and Taxing effort to leave home Smoking Status: Former smoker [facility] Medical History (Updated 03/03/22 @ 14:41 [...] <Electronically signed by DAVID Aguilar> 07/20/[address] [facility] Work Phone: Reason for referral (narrative)* Outpatient Procedure (Routine) - Authorized Specialty Diagnoses / Procedures Referred By Felicia t Referred To [facility] [place] Diagnoses PAD (peripheral artery disease) (HCC) Nonhealing ulcer of heel (HCC) Procedures US LEG ARTERIAL PERIPH UNL VAS LAB DUP-SCAN LXTR ART/ARTL BPGS UNI/[place] [address] [place] [id number] [address] Referral ID Status Reason Start Date Expiration Date Visits Requested Visits Authorized [id number] Authorized Auto-Generat ed Referral 11/17/2021 11/17/2022 1 1 * Outpatient Procedure (Routine) - Authorized Specialty Diagnoses / Procedures Referred By Kaleighac t Referred To [facility] Diagnoses Acute deep vein thrombosis (DVT) of proximal end of right lower extremity (HCC) Procedures US LEG VEIN DVT UNL VAS LAB DUP-SCAN XTR VEINS UNILATERAL/[place] [address] [place] [id number] [address] Referral ID Status Reason Start Date Expiration Date Visits Requested Visits Authorized [id number] Authorized Auto-Generat ed Referral 11/17/2021 11/17/2022 1 1 * Consult, Test, Treat (Routine) - Authorized Specialty Diagnoses / Procedures Referred By Felicia carreno Referred To Contact Cardiology Diagnoses PAD (peripheral artery disease) (HCC) Nonhealing ulcer of heel (HCC) Procedures CONSULT TO CARDIOLOGY OFFICE/[facility] MDM 60-74 MINUTES Savanah Marcelo MD [address] [place] [address] Referral ID Status Reason Start Date Expiration Date Visits Requested Visits Authorized [id number] Authorized PCP Requested Referral 11/17/2021 11/17/2022 1 1 [facility] Summary Purpose Family History No Family History Records Found Relationship Condition Age at Onset Recorded Date/T kartik father Aneurysm Unknown father Parkinson's disease Unknown Advance Directives No Advanced Directives Records FoundDocuments on File Type Date Recorded 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 Advance Directive(s) Latest Code Status [...] Maker Relationship: M ajority of Adult Siblings (access services representative) DNR-CCA 09/26/2021 11:56 AM 10/01/2021 [...] Decision Maker Relationship: Majority of Adult Siblings (access services representative) Code Status History Code Status [...] Visit Chief Complaint Open Wound ([facility]) Reason for Visit At high [...] and content) DATE CREATED AUTHOR 02/20/2021 [facility] [email or web address] [facility] DATE CREATED AUTHOR AUTHOR'S ORGANIZ ATION 07/25/2022 [facility] DATE CREATED AUTHOR AUTHOR'S ORGANIZ ATION 08/16/2022 [facility] DATE CREATED AUTHOR AUTHOR'S ORGANIZ ATION 01/14/2023 [facility] DATE CREATED AUTHOR AUTHOR'S ORGANIZ ATION 05/25/2023 [facility] DATE CREATED AUTHOR AUTHOR'S ORGANIZ ATION 06/19/2023 [facility] Special[facility] [employer] Comments (unrecognize d section [...] prosecute any alcohol or drug abuse patient.[facility] Reason for Visit (unrecogniz ed section and [...] Care Teams (unrecognized sec tion and content) Senior Financial Reporting Accountant Relationship Specialty Start Date End Date Devon Moreira, DO [address] [facility] [place] [address] PCP - General 05/27/00 Senior Financial Reporting Accountant Relationship Specialty Start Date End Date Devon Moreira, DO [address] [facility] [place] [address] PCP - General 05/27/00 Senior Financial Reporting Accountant Relationship Specialty Start Date End Date Devon Moreira, DO [address] [facility] [place] [address] PCP - General 05/27/00 Senior Financial Reporting Accountant Relationship Specialty Start Date End Date Devon Moreira, DO [address] [facility] [place] [address] PCP - General 05/27/00 Senior Financial Reporting Accountant Relationship Specialty Start Date End Date Devon Moreira, DO [address] [facility] [place] [address] PCP - General 05/27/00 Senior Financial Reporting Accountant Relationship Specialty Start Date End Date Devon Moreira, DO [address] [facility] [place] [address] PCP - General 05/27/00 Senior Financial Reporting Accountant Relationship Specialty Start Date End Date Devon Moreira, DO [address] [facility] [place] [address] PCP - General 05/27/00 Senior Financial Reporting Accountant Relationship Specialty Start Date End Date Devon Moreira, DO [address] [place] [address] PCP - General 05/27/00 Senior Financial Reporting Accountant Relationship Specialty Start Date End Date Devon Moreira, DO [address] [place] [address] PCP - General 05/27/00 Senior Financial Reporting Accountant Relationship Specialty Start Date End Date Devon Moreira, DO [address] [place] [address] PCP - General 05/27/00 Senior Financial Reporting Accountant Relationship Specialty Start Date End Date Devon Moreira, DO [address] [place] [address] PCP - General 05/27/00 Senior Financial Reporting Accountant Relationship Specialty Start Date End Date Devon Moreira, DO [address] [place] [address] PCP - General 05/27/00 Senior Financial Reporting Accountant Relationship Specialty Start Date End Date Devon Moreira, DO [address] [place] [address] PCP - General 05/27/00 Senior Financial Reporting Accountant Relationship Specialty Start Date End Date Devon Moreira, DO [address] [place] [address] PCP - General 05/27/00 Senior Financial Reporting Accountant Relationship Specialty Start Date End Date Devon Moreira, DO [address] [place] [address] PCP - General 05/27/00 Senior Financial Reporting Accountant Relationship Specialty Start Date End Date Devon Moreira, DO [address] [place] [address] PCP - General 05/27/00 Senior Financial Reporting Accountant Relationship Specialty Start Date End Date Devon Moreira, DO [address] [place] [address] PCP - General 05/27/00 Senior Financial Reporting Accountant Relationship Specialty Start Date End Date Devon Moreira, DO [address] [place] [address] PCP - General 05/27/00 Senior Financial Reporting Accountant Relationship Specialty Start Date End Date Devon Moreira, DO [address] [place] [address] PCP - General 05/27/00 Team Status: Active Member Role Status Dates Devon Moreira DO Primary Care Provider Active Team Status: Inactive Member Role Status Dates Devon Moreira DO Primary Care Provider Active Sadia Aguilar APRN Attending Provider Active Senior Financial Reporting Accountant Relationship Specialty Start Date End Date Devon Moreira [address] [place] [address] PCP - General 05/27/00 Senior Financial Reporting Accountant Relationship Specialty Start Date End Date Devon Moreira [address] [place] [address] PCP - General 05/27/00 Senior Financial Reporting Accountant Relationship Specialty Start Date End Date Ni Cabrera DO [address] [facility] [address] [place] [address] PCP - ACO Reach 07/09/22 Devon Moreira MD [address] [place] [id number] PCP - General Internal Medicine 07/14/22 PRN Active and Recently Administ ered Medications (unrecognized section and content) Medication Order 01/10/2022 01/11/2022 01/12/2022 lidocaine (PF) 10 mg/mL (1 %) injection (XYLOCAINE) SUBCUTANEOUS, X (OR/PROCEDURE) PRN, Starting on 01/12/22 at 1032, Until Wed01/13/22 at 0303, Intraprocedure 1032 (Given - Provid er: Vani Hdz APRN.CONTENT ANALYST) Goals (unrecognized section and content) Goals may [...] BE BASED ON THE PRIMARY CLINICAL RECORDS. [email or web address] provides no warranty or guarantee of the accuracy or completeness of information in this document.
[2023-07-14 08:21] LABS: Basophils Percent Auto 0.6 % (0.2-2.0); Eosinophils Absolute Auto 0.3 10^3/uL (0.0-0.7); Eosinophils Percent Auto 4.6 % (0.9-7.0); Hematocrit 28.2 % (42.0-54.0); Hemoglobin 8.8 g/dL (14.0-18.0); Immature Granulocytes Abs Auto 0.02 10^3/uL (0.00-0.03); Immature Granulocytes Pct Auto 0.3 % (0.0-0.5); Lymphocytes Absolute Auto 2.3 10^3/uL (1.2-3.8); Mean Corpuscular HGB Conc 31.2 g/dL (29.9-35.2); Mean Corpuscular Hemoglobin 25.1 pg (25.9-34.0); Mean Corpuscular Volume 80.3 fL (80.0-94.0); Mean Platelet Volume 10.8 fL (9.5-13.5); Monocytes Absolute Auto 0.8 10^3/uL (0.3-0.8); Neutrophils Absolute Auto 3.6 10^3/uL (1.4-6.5); Neutrophils Percent Auto 50.5 % (43.0-75.0); Platelet Count 215 10^3/uL (150-450); Red Blood Count 3.51 10^6/uL (4.70-6.10); Red Cell Distribution Width 16.3 % (11.0-15.0)
[2023-07-14 09:09] LABS: INR 2.57; Prothrombin Time 24.8 sec (9.0-11.6)
[2023-07-14 09:29] LABS: Alanine Aminotransferase 16 U/L (16-63); Albumin Globulin Ratio 0.8; Albumin Level 2.7 g/dL (3.4-5.0); Alkaline Phosphatase 91 U/L (46-116); Anion Gap 11.8; Aspartate Amino Transferase 17 U/L (15-37); Bilirubin Total 0.7 mg/dL (0.2-1.0); Carbon Dioxide 27.2 mmol/L (21.0-32.0); Chloride 103 mmol/L (98-107); Estimated GFR (African America 54 (>=60); Estimated GFR (Non-African Ame 44 (>=60); Globulin 3.4 g/dL; Glucose 241 mg/dL (74-106); Sodium 138 mmol/L (136-145); Total Protein 6.1 g/dL (6.4-8.2)
[2023-07-16 18:08] LABS: Tacrolimus (FK506), Blood 9.1 ng/mL (2.0-20.0)
== END 2023-07-14 00:49 | disposition home or self-care (01) ==
LOC: LAB 00:48
PROVIDERS: PCP Internal Medicine; Visit Provider Internal Medicine
DX: N18.9 Chronic kidney disease, unspecified (principal)
CPT/HCPCS: 36415; 80053; 80197; 85025; 85610

== ENCOUNTER 2023-07-19 00:24 | Outpatient (RCR) | payer MEDICARE, OTHER, SELFPAY | END 2023-08-13 11:10 | disposition home or self-care (01) | LOC: MM 00:24 | PROVIDERS: PCP Internal Medicine; Visit Provider Internal Medicine | DX: Z51.81 Encounter for therapeutic drug level monitoring (principal); Z79.01 Long term (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 of anticoagulants ==

== ENCOUNTER 2023-07-21 01:04 | Outpatient (REF) | payer MEDICARE, OTHER, SELFPAY ==
--- OUTSIDE RECORDS SUMMARY | 2023-07-21 01:15 | XMS_ITS ---
Patient Summarization (C-CDA 2.1 CCD) Created on: July 21, 2023 ALEX ALMONTE : 1945 Sex: Male Author Organization Sample organization Care Team Providers Care Director Visual Name Role Phone PROVIDER, UNKNOWN Attending Unavailable [...] BALL, DR TAM Consulting Unavailable BALL, DR TMA Attending Unavailable BALL, DR TAM Admitting Unavailable [...] BALL, DR TAM Consulting Unavailable BALL, DR TMA Attending Unavailable BALL, DR TAM Admitting Unavailable [...] Unavailable DO Devon Moreira Primary Care Provider [phone] DAVID Aguilar Attending Provider Sadia Aguilar Attending Unavailable Sadia Aguilar Admitting Unavailable Devon Moreira Primary Care Unavailable DEVON MOREIRA Referring Unavailable HINA PETERSON Attending Unavailable DEVON MOREIRA Primary Care Unavailable NILDA CHEN Referring Unavailable DEVON MOREIRA Primary Care Unavailable PetNi moreno DO Unavailable Devon Moreira MD Primary Care Provider CAITY IBRAHIM Attending Unavailable MILAGRO QUEEN Referring Unavailable SARTHAK PARNELL Attending Unavailable NI CABRERA Attending Unavailable DEVON MOREIRA Referring Unavailable NI CABRERA Attending Unavailable DEVON MOREIRA Referring Unavailable Allergies Allergy Classification Reported Allergen(s) Allergy Type Date of Onset Reaction(s) Facility (20 sources) Pyridostigmine; Translations: [PYRIDOSTIGMINE BROMIDE] Drug Allergy 2 GI Upset [facility] Work Phone: (1 source) Pyridostigmine Drug Allergy 2 Nausea Only [facility] Encounters Encounter Date Encounter Type Care Provider Facility Start: 06-17-2023 End: 06-17-2023 ambulatory NI CABRERA Not Available Start: 05-19-2023 End: 05-19-2023 ambulatory CAITY [facility] Start: 04-11-2023 End: 04-11-2023 ambulatory Devon Moreira Other [facility] Other Start: 04-11-2023 Telephone encounter Devon NUNEZ [facility] Start: 03-18-2023 End: 03-18-2023 ambulatory NI CABRERA Not Available Start: 03-18-2023 End: 03-18-2023 Office outpatient visit 25 minutes Ni Cabrera DO Work Phone: [phone] Comment on above: 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 ([facility]/HCC) (Primary Dx); 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); 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); Type 1 diabetes mellitus with hypoglycemia and without coma (CMS/HCC); 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 ([facility]/HCC) Start: 02-17-2023 End: 02-17-2023 ambulatory Devon Moreira Other [facility] Other Start: 02-17-2023 Telephone encounter Devon Manzo [facility] Start: 01-14-2023 End: 01-14-2023 ambulatory Devon Moreira Other [facility] Other Start: 01-14-2023 Sbsq nursing facil c are/day minor complj 15 min [facility] Start: 12-10-2022 End: 12-10-2022 ambulatory Devon Moreira Other [facility] Other Start: 12-10-2022 Sbsq nursing facil c are/day minor complj 15 min Devon Moreira [facility] Start: 11-12-2022 End: 11-12-2022 ambulatory Devon Moreira Other [facility] Other Start: 11-12-2022 Sbsq nursing facil c are/day minor complj 15 min [facility] Start: 10-16-2022 Refill Asia Pike MD Work Phone: [facility] Comment on above: Med Change Request Start: 10-12-2022 End: 10-12-2022 ambulatory Devon Moreira Other [facility] Other Start: 10-12-2022 Telephone encounter Devon Moreira MAYRA [facility] Start: 10-08-2022 End: 10-08-2022 ambulatory Devon Moreira Other [facility] Other Start: 10-08-2022 Sbsq nursing facil c are/day new problem 25 min [facility] Start: 09-22-2022 [facility] on above: Rx Refills Start: 09-10-2022 End: 09-10-2022 ambulatory Devon Moreira Other [facility] Other Start: 09-10-2022 Sbsq nursing facil c are/day new problem 25 min [facility] Start: 09-09-2022 End: 09-09-[address] [facility] Start: 08-06-2022 End: 08-06-2022 ambulatory Devon Moreira Other [facility] Other Start: 08-06-2022 Sbsq nursing facil c are/day new problem 25 min [facility] Start: 07-22-2022 End: 07-22-2022 ambulatory Devon Moreira Other [facility] Other Start: 07-22-2022 Telephone encounter Devon Moreira [facility] Start: 07-20-2022 End: 07-20-2022 ambulatory Sadia Aguilar Facility:[facility] Start: 07-20-2022 End: 07-20-2022 ambulatory DO Devon Moreira Work Phone: [facility] Work Phone: Start: 07-20-2022 End: 07-20-2022 Discharged Recurring DO Devon Moreira Work Phone: [facility] [place] Work Phone: Start: 07-13-2022 End: 07-13-[address] DEVON MOREIRA Facility:[facility]1 Start: 07-10-2022 End: 07-10-[address] DEVON MOREIRA Facility:[facility] Start: 07-03-2022 End: 07-03-[address] DEVON MOREIRA Facility:[facility] Start: 06-26-2022 End: 06-26-[address] DEVON MOREIRA Facility:[facility] Start: 06-26-2022 End: 06-26-[address] DEVON MOREIRA Facility:[facility] Start: 06-25-2022 End: 06-25-2022 ambulatory Devon Moreira Other [employer] [employer] Other Start: 06-25-2022 Sbsq nursing facil c are/day minor complj 15 min Devon Moreira [facility] Start: 06-19-2022 End: 06-19-[address] DEVON MOREIRA Facility:[facility] Start: 06-15-2022 End: 07-15-2022 ambulatory SHAIKH Kate MURRAY Facility:[facility] Start: 06-12-2022 End: 06-12-[address] DOCTOR WALSH Facility:[facility]1 Start: 06-05-2022 Sbsq nursing facil c are/day new problem 25 min [facility] Start: 06-05-2022 End: 06-05-[address] DEVON MOREIRA [facility] Other Start: 05-29-2022 End: 05-29-[address] DEVON MOREIRA Facility:[facility] Start: 05-22-2022 End: 05-22-[address] DEVON MOREIRA Facility:[facility] Start: 05-20-2022 End: 05-20-[address] DEVON MOREIRA Facility:[facility] Start: 05-18-2022 End: 06-12-2022 ambulatory SHAIKH Kate MURRAY Facility:[facility]1 Start: 05-15-2022 End: 05-15-[address] DEVON MOREIRA Facility:[facility] Start: 05-13-2022 End: 05-13-2022 ambulatory Van Olivarez TIMBER TREATMENT PLANT OPERATOR.VINYL INSTALLER Work Phone: [facility] Comment on above: results Start: 05-13-2022 E-mail encounter fro m caregiver Van Olivarez TIMBER TREATMENT PLANT OPERATOR.VINYL INSTALLER Work Phone: [facility] Start: 05-08-2022 End: 05-08-[address] DEVON MOREIRA Facility:[facility]1 Start: 05-07-2022 End: 05-07-2022 ambulatory Devon Moreira Other [facility] Other Start: 05-07-2022 Sbsq nursing facil c are/day new problem 25 min Devon Moreira [facility] Start: 05-06-2022 End: 05-06-[address] [...] MOREIRA Facility:[facility]1 Start: 04-02-2022 ambulatory Van cortes TIMBER TREATMENT PLANT OPERATOR.VINYL INSTALLER Work Phone: [facility] Start: 04-01-2022 End: 04-01-[address] DEVON MOREIRA Facility:[facility]1 Start: 03-22-2022 Anne Pike MD Work Phone: [facility] Comment on above: Med Change Request Start: 03-21-2022 ambulatory SHAIKH Kate MURRAY Facilit y:H1 Start: 03-11-2022 End: 03-11-[address] DEVON MOREIRA Facility:[facility]1 Start: 02-27-2022 Refill Samira Serna [facility] Comment on above: Rx Refills Start: 02-26-2022 End: 02-26-2022 ambulatory DEVON MOREIRA Facility:[facility] Start: 02-26-2022 End: 02-26-2022 Patient encounter [...] Start: 02-05-2022 End: 02-06-2022 ambulatory NILDA CHEN Facility:[facility] Start: 02-05-2022 End: 02-05-2022 Patient encounter procedure [facility] Work Phone: [facility] Comment on above: Kidney replaced by t ransplant (Primary Dx); 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; [facility] current use of immunosuppressive drug Start: 01-26-2022 End: 01-26-[address] DEVON MOREIRA Facility:[facility]1 Start: 01-20-2022 Telephone encounter Vanbetzy Olivarez APRN.VINYL INSTALLER Work Phone: Kidney Medicine [facility] Comment on above: Results Start: 01-19-2022 End: 01-19-[address] DEVON MOREIRA Facility:[facility]1 Start: 01-16-2022 ambulatory SHAIKH Kate MURRAY Facilit y:H1 Start: 01-12-2022 End: 01-12-2022 Subsequent hospital visit by physician Alissa Chavira APRN.VINYL INSTALLER Work Phone: [facility] Comment on above: ILIANA (acute kidney in jury) ([facility]) [N17.9] Start: 12-30-2021 End: 12-30-2021 ambulatory Paresh Fonseca MD Work Phone: Infectious Disease Comment on above: MRSA bacteremia (Arabella munira Dx); Diabetic foot ulcer with osteomyelitis (HCC) Start: 12-30-2021 End: 12-30-2021 Telemedicine consultation with patient Paresh Fonseca MD Work Phone: [facility] Start: 12-29-2021 End: 12-29-[address] DEVON MOREIRA Facility:[facility]1 Start: 12-25-2021 End: 12-26-[address] DEVON MOREIRA Facility:[facility]1 Start: 12-20-2021 End: 12-20-[address] DEVON MOREIRA Facility:[facility]1 Start: 12-16-2021 End: 01-14-2022 ambulatory SHAIKH Kate MURRAY Facility:[facility]1 Start: 12-16-2021 Telephone encounter Hina shepard MD Work Phone: Vascular Surg Dept Comment on above: Orders Start: 12-15-2021 Telephone encounter Paresh Fnoseca MD Work Phone: Infectious Disease Comment on above: Medication Question Start: 12-14-2021 End: 12-14-[address] DEVON MOREIRA Facility:[facility] Start: 12-12-2021 ambulatory Paresh Fonseca MD Work Phone: Infectious Disease Comment on above: [facility] Start: 12-08-2021 Orders Only Nilda Richmondmisael soto TIMBER TREATMENT PLANT OPERATOR.VINYL INSTALLER Work Phone: [facility] Center Comment on above: Kidney replaced by t ransplant (Primary Dx) Start: 12-07-2021 ambulatory Paresh Fonseca MD Work Phone: [facility] Comment on above: [facility] Start (copat s top 12/27/21) Start: 12-05-2021 Telephone encounter Paresh Fonseca MD Work Phone: Infectious Disease Comment on above: Patient Update (evus held discussion/) Start: 12-01-2021 Follow-up encounter [facility] Provider [facility] Start: 12-01-2021 Patient encounter procedure [facility] Prov ider [facility] Department Start: 11-23-2021 End: 11-28-2021 Evaluation [...] management encounter Start: 11-14-2021 End: 11-15-2021 ambulatory [facility] Facility:H1 Start: 10-24-2021 End: 11-15-2021 ambulatory DIAMONDSONALI MURRAY Facility:[facility]1 Start: 10-22-2021 End: 10-23-2021 ambulatory [facility] Facility:H1 Start: 10-06-2021 ambulatory Van cortes TIMBER TREATMENT PLANT OPERATOR.VINYL INSTALLER Work Phone: Kidney [facility] Start: 09-30-2021 Refill Asia Pike MD Work Phone: Kidney [facility] Comment on above: Refill Request Start: 09-19-2021 End: 09-24-2021 Evaluation and management of inpatient DR PROSPER LEES Facility:H1 Start: 09-18-2021 End: 09-19-[address] DEVON MOREIRA Facility:[facility]1 Start: 07-11-2021 Refill Asia Pike MD Work Phone: [facility] Comment on above: Refill Request Start: 06-05-2021 Telephone encounter Van Olivarez APRN.VINYL INSTALLER Work Phone: [facility] Comment on above: Results Start: 02-05-2021 End: 02-13-2021 ambulatory UNKNOWN PROVIDER Facility:[facility] Medical Equipment Procedure Code Equipment Code Equipment Original Text Equipment Identifier Dates Tray Powerline S urecuff 5fr Polyurethane Catheter 1 Lumen Microintroducer - [id number] Start: 12-06-2021 Immunizations Immunization Date Immunization Notes Care Provider Fa cili 12-11-2021 COVID-19 booster vaccine, age 12+ yr, bivalent (PFIZER-BIONTBrightArch) Paresh Fonseca MD Work Phone: [facility] 12-11-2021 influenza, high-dose , quadrivalent vaccine (FLUZONE HIGH DOSE QUADRIVALENT) Paresh Fonseca MD Work Phone: [facility] 12-11-2021 influenza virus vaccine, unspecified formulation [facility] 10-24-2021 influenza, high dose seasonal, preservative-free Ni Petznick DO Work Phone: [facility] 01-19-2019 influenza, high dose seasonal, preservative-free Ni Petznick DO Work Phone: [facility] 11-25-2017 Seasonal trivalent influenza vaccine, adjuvanted, preservative free Ni Petznick DO Work Phone: [facility] 11-05-2016 influenza, high dose seasonal, preservative-free Ni Petznick DO Work Phone: [facility] 07-30-2014 pneumococcal polysaccharide vaccine, 23 valent Ni Petznick DO Work Phone: [facility] 03-09-2011 influenza virus vaccine, unspecified formulation Van Olivarez APRN.VINYL INSTALLER Work Phone: [facility] 12-17-2007 influenza virus vaccine, unspecified formulation Van Krusejaylan HERNANDEZ.[facility] Work Phone: [facility] Work Phone: 02-11-2006 influenza virus vaccine, unspecified formulation Van Krusejaylan RILEYN.[facility] Work Phone: [facility] Work Phone: 12-07-2003 influenza virus vaccine, unspecified formulation Van Sher RILEYN.[facility] Work Phone: [facility] Work Phone: 12-07-2003 pneumococcal polysaccharide vaccine, 23 valent Van Olivarez APRN.[facility] Work Phone: [facility] Work Phone: NEGATED: Highlighted row has not occurred!12-10-2021 COVID-19 booster vaccine, age 12+ yr, bivalent (PFIZER-BIONTBrightArch) Paresh Fonseca MD Work Phone: [facility] NEGATED: Highlighted row has not occurred!12-10-2021 influenza, high-dose, quadrivalent vaccine (FLUZONE HIGH DOSE QUADRIVALENT) Paresh Fonseca MD Work Phone: [facility] Medications Current Medications Medication Drug Class(es) Dates [...] 10 units and notify provider [facility] [place] [place] [phone] MG (6 sources) take 155-852 tablets by mouth twice daily [facility] [place] [place] [phone] MG 1 tablet Orally twice daily Active take 155-852 tablets by mouth four times daily take 155-852 tablets by mouth four times daily [facility] [place] [place] [phone] MG 1 tablet Orally Four times [...] by mouth daily with lunch. Magic Cup [place] with lunch 7110 mL 0 12/11/2021 Active Comment on above: Take 237 mL by mouth daily with lunch. Magic Cup [place] with lunch polyethylene glycol 3350 76648 mg powder for oral solution (20 sources) [...] Medicare MEDICARE MEDICAR E A AND B [id number] 2009-Present [phone] [place] [address] Medicare [id number] .[id number] 2009 Medicare [id number] 1.13.159.2.7.3 .189442.315 2009 Unknown [employer] MEDICARE SUPPLEMENT [id number] 2009-Present [phone] [place] [address] Indemnity [id number] 1.2.840.879800.1.13.159.2.7.3 .553459.315 2009 Unknown 1.2.840.341298. 1.13.159.2.7.3 .521123.315 2009 Unknown [id number] 2.16.8 40.1.461284.19 2009 Unknown [id number] 1959 Medicare [id number] 1959 Self-pay 1944 Unknown [id number] 2.16.840.1.131807.3.579.2.732 1944 Unknown [id number] 2.16.840.1.912104.3.579.2.593 1944 Unknown [id number] 2.16.840.1.701891.3.579.2.593 1944 Unknown [id number] 2.16.840.1.038227.3.579.2.593 1944 Unknown [id number] 2.16.840.1.895431.3.579.2.593 1944 Unknown [id number] 2.16.840.1.565159.3.579.2.593 1944 Unknown [id number] 2.16.840.1.638986.3.579.2.593 1944 Unknown [id number] 2.16.840.1.180491.3.579.2.593 1944 Unknown [id number] 2.16.840.1.488611.3.579.2.593 1944 Unknown [id number] 2.16.840.1.125405.3.579.2.593 1944 Unknown [id number] 2.16.840.1.747006.3.579.2.593 1944 Unknown [id number] 2.16.840.1.067470.3.579.2.593 1944 Unknown [id number] 2.16.840.1.421132.3.579.2.593 1944 Unknown [id number] 2.16.840.1.911104.3.579.2.593 1944 Unknown [id number] 2.16.840.1.830475.3.579.2.593 1944 Unknown [id number] 2.16.840.1.195055.3.579.2.593 1944 Unknown [id number] 2.16.840.1.739391.3.579.2.593 1944 Unknown [id number] 2.16.840.1.331070.3.579.2.593 1944 Unknown [id number] 2.16.840.1.204279.3.579.2.593 1944 Unknown [id number] 2.16.840.1.429327.3.579.2.593 1944 Unknown [id number] 2.16.840.1.461550.3.579.2.593 1944 Unknown [id number] 2.16.840.1.664077.3.579.2.593 1944 Unknown [id number] 2.16.840.1.932780.3.579.2.593 1944 Unknown [id number] 2.16.840.1.539259.3.579.2.593 1944 Unknown [id number] 2.16.840.1.298848.3.579.2.593 1944 Unknown [id number] 2.16.840.1.074404.3.579.2.593 1944 Unknown [id number] 2.16.840.1.450212.3.579.2.593 1944 Unknown [id number] 2.16.840.1.425757.3.579.2.593 1944 Unknown [id number] 2.16.840.1.283875.3.579.2.593 1944 Unknown [id number] 2.16.840.1.034242.3.579.2.593 1944 Unknown [id number] 2.16.840.1.860333.3.579.2.593 1944 Unknown [id number] 2.16.840.1.354374.3.579.2.593 1944 Unknown [id number] 2.16.840.1.628758.3.579.2.593 1944 Unknown [id number] 2.16.840.1.776662.3.579.2.593 1944 Unknown [id number] 2.16.840.1.861062.3.579.2.593 1944 Unknown [id number] 2.16.840.1.981301.3.579.2.593 1944 Unknown [id number] 2.16.840.1.567267.3.579.2.593 1944 Unknown [id number] 2.16.840.1.200110.3.579.2.593 1944 Unknown [id number] 2.16.840.1.911394.3.579.2.593 1944 Unknown [id number] 2.16.840.1.038630.3.579.2.593 1944 Unknown [id number] 2.16.840.1.561443.3.579.2.593 1944 Unknown [id number] 2.16.840.1.713134.3.579.2.593 1944 Unknown [id number] 2.16.840.1.435792.3.579.2.593 1944 Unknown [id number] 2.16.840.1.527718.3.579.2.593 1944 Unknown [id number] 2.16.840.1.554775.3.579.2.593 1944 Unknown [id number] 2.16.840.1.416261.3.579.2.593 1944 Unknown [id number] 2.16.840.1.739437.3.579.2.593 1944 Unknown [id number] 2.16.840.1.895428.3.579.2.125 9 1944 Unknown [id number] 2.16.840.1.892521.3.579.2.125 9 Medicare Medicare Outpatient [id number] 2T [id number] Unknown [id number] 2.16.840.1.538943.3.579.2.593 Unknown [id number] 2.16.840.1.679146.3.579.2.593 Unknown [id number] 2.16.840.1.270927.3.579.2.531 Plan of Treatment Date Care Activity Detail Author Start: 06-17-2023 End: 06-17-2023 Patient encounter procedure 06/17/2023 2:15 PM EDT Office Visit [facility] [address] [address] Ni Cabrera DO [address] [facility] [address] [place] [address] [facility] 230 Start: 06-16-2023 Hemoglobin A1c measurement Diabetes: Hemoglobin A1C [facility] Start: 02-26-2023 BP CONTROLLED (<130/80) BP CONTROLLE D (<130/80) [facility] Start: 02-05-2023 BP CONTROLLED (<130/80) BP CONTROLLE D (<130/80) [facility] Start: 01-12-2023 BP CONTROLLED (<130/80) BP CONTROLLE D (<130/80) [facility] Start: 11-17-2022 BP CONTROLLED (<130/80) BP CONTROLLE D (<130/80) [facility] Start: 10-16-2022 Influenza vaccination C [facility] Start: 05-15-2022 Medicare Annual Wellness (AWV) Medicare Annual Wellness (AWV) [facility] Start: 04-08-2022 BP CONTROLLED (<130/80) BP CONTROLLE D (<130/80) [facility] Start: 02-15-2022 ADVANCE DIRECTIVE DISCUSSION ADVANCE DIRECTIVE DISCUSSION [facility] Start: 02-15-2022 DEPRESSION ASSESSMENT DEPRESSION ASS ESSMENT [facility] Start: 02-05-2022 COVID-19 VACCINE (5 - Yung risk series) COVID-19 VACCINE (5 - Yung risk series) [facility] Start: 11-27-2021 COVID-19 VACCINE (4 - Booster for Yung series) COVID-19 VACCINE (4 - Booster for Yung series) [facility] Start: 11-04-2021 Hemoglobin A1c/Hemoglobin.total in Blood HBA1C [facility] Start: 10-16-2021 Influenza vaccination C [facility] Start: 03-26-2021 COVID-19 VACCINE (3 - Yung risk 3-dose series) COVID-19 VACCINE (3 - Yung risk 3-dose series) [facility] Start: 03-26-2021 COVID-19 VACCINE (3 - Yung risk series) COVID-19 VACCINE (3 - Yung risk series) [facility] Start: 02-15-2021 ADVANCE DIRECTIVE DISCUSSION ADVANCE DIRECTIVE DISCUSSION [facility] Start: 02-15-2021 DEPRESSION ASSESSMENT DEPRESSION ASS ESSMENT [facility] Start: 01-05-2016 Hepatitis B screening URINE AL BUMIN:CREATININE RATIO [facility] Start: 07-31-2015 Pneumococcal Vaccine : 65+ Years (3 - PCV) Pneumococcal Vaccine: 65+ Years (3 - PCV) [facility] Start: 04-06-2015 Hemoglobin A1c/Hemoglobin.total in Blood HBA1C [facility] Start: 11-22-2010 Hepatitis B surface antibody level LDL CHOLESTEROL [facility] Start: 2009 ADULT PREVNAR-13 ADULT PREVNAR-13 Cl [facility] Start: 2009 PNEUMOVAX AGE 65 AND OVER WITH 5YR LOOKBACK (#1) PNEUMOVAX AGE 65 AND OVER WITH 5YR LOOKBACK (#1) [facility] Start: 1994 SHINGRIX VACCINE (1 of 2) SHINGRIX VACCINE (1 of 2) [facility] Start: 10-18-1963 HEPATITIS A (1 of 2 - Risk 2-dose series) HEPATITIS A (1 of 2 - Risk 2-dose series) [facility] Start: 10-18-1963 Hepatitis A Vaccine (1 of 2 - Risk 2-dose series) Hepatitis A Vaccine (1 of 2 - Risk 2-dose series) [facility] Start: 10-18-1963 SHINGRIX VACCINE (1 of 2) SHINGRIX VACCINE (1 of 2) [facility] Start: 10-18-1963 Urine microalbumin profile [facility] Start: 1962 ANNUAL PCP TEAM TIMBER MANAGEMENT SPECIALIST MATTHEW DISEASE VISIT ANNUAL PCP TEAM CHRONIC DISEASE VISIT [facility] Start: 1956 Adult depression screening assessment DEPRESSION SCREENING [facility] Start: 1954 3 comp foot exam completed DIABETIC FOOT EXAM [facility] Start: 1954 Glaucoma screening Diabetes: R etinopathy Screening [facility] Start: 1954 Hepatitis C antibody , confirmatory test DILATED RETINAL EXAM [facility] Start: 1950 Pneumococcal Vaccine : 65+ (1 - PCV) Pneumococcal Vaccine: 65+ (1 - PCV) [facility] Start: 1950 PNEUMOCOCCAL: 65+ (1 - PCV) PNEUMOCOCCAL: 65+ (1 - PCV) [facility] Start: 1945 HEPATITIS A (1 of 2 - Risk 2-dose series) HEPATITIS A (1 of 2 - Risk 2-dose series) [facility] URINALYSIS, REFLEX MICROSCOPIC URINALYSIS, REFLEX MICROSCOPIC Lab Routine Screening for genitourinary condition Ordered: 10/06/2021 [facility] Work Phone: Comment on above: Ordered: 10/06/2021 URINALYSIS, REFLEX MICROSCOPIC URINALYSIS, REFLEX MICROSCOPIC Lab Routine Screening for genitourinary condition Ordered: 04/02/2022 [facility] Work Phone: Comment on above: Ordered: 04/02/2022 End: 11-17-2022 US LEG ARTERIAL PERIPH UNL VAS LAB US LEG ARTERIAL PERIPH UNL VAS LAB Vascular Lab Routine PAD (peripheral artery disease) (HCC) Nonhealing ulcer of heel (HCC) 1 Occurrences starting 11/17/2021 until 11/17/2022 [facility] Work Phone: Comment on above: 1 Occurrences starti ng 11/17/2021 until 11/17/2022 End: 11-17-2022 US LEG VEIN DVT UNL VAS LAB US LEG VEIN DVT UNL VAS LAB Vascular Lab Routine Acute deep vein thrombosis (DVT) of proximal end of right lower extremity (HCC) 1 Occurrences starting 11/17/2021 until 11/17/2022 [facility] Work Phone: Comment on above: 1 Occurrences [...] Coronary arteriosclerosis; Translations: [Atherosclerotic heart disease of [place] coronary artery without angina pectoris] Onset: 7 [...] current use of immunosuppressive drug; Translations: [Other usp (current) drug therapy] Episodic Other aftercare (13 sources) Long-term current use of insulin; Translations: [sawing and assembly supervisor (current) use of insulin] Episodic Other aftercare (10 sources) [facility] (current) use of insulin; Translations: [STENCIL MAKER CURRENT USE OF INSULIN] Onset: 2 Episodic Other aftercare (5 sources) sawing and assembly supervisor (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 of anticoagulants; Translations: [FPC CURRNT [...] 07-30-2006 Episodic Other aftercare (2 sources) Other de icer finisher (current) drug therapy; Translations: [OTH STENCIL MAKER CURRENT DRUG THERAPY] Onset: 02-05-2022 Episodic Other aftercare (4 sources) Encounter for orthopedic aftercare following surgical amputation; Translations: [ENC ORTHOPED AFTERCARE FLW SURG AMP] Onset: 12-22-2022 Episodic Other aftercare (4 sources) sawing and assembly supervisor (current) use of antibiotics; Translations: [FPC CURRENT USE ANTIBIOTICS] Onset: 12-20-2021 Episodic Other aftercare (1 source) sawing and assembly supervisor (current) use of aspirin; Translations: [FPC CURRENT USE OF ASPIRIN] Onset: 01-19-2022 Episodic [...] Phone: Start: 01-12-2022 Prothrombin time Alissa Chavira APRN.VINYL INSTALLER Work Phone: Start: 12-01-2021 [facility]EM[facility]ER CLINIC CHECK [facility] Provider Start: 11-29-2021 Microscopic examinat ion of blood, culture DR PROSPER LEES Comment on above: Performed By: #### B [id number] ####[facility] [address] [place] [address]DrSkylar Farhat Elvis Start: 11-27-2021 Insertion of Infusio [...] renal transplant KIDNEY TRANSPLANT STATUS Van Olivarez TIMBER TREATMENT PLANT OPERATOR.VINYL INSTALLER Work Phone: History of renal transplant Kidney replaced by transplant Nilda Chen TIMBER TREATMENT PLANT OPERATOR.VINYL INSTALLER Work Phone: History of renal transplant Kidney replaced by transplant [facility] Work Phone: History of renal transplant Devon Moreira Other History of renal transplant Kidney replaced by transplant Asia Pike MD Work Phone: History of renal transplant Devon Moreira Other Results Test Name Value Interpretation Reference Range Facility Office Visiton 05-19-2023 Follow-up visit [id number] Alex Almonte 1945 M Date Provider Department Center 05/19/2023 166-CAITY IBRAHIM CARD [facility] Family History Problem Relation Age of Onset Cancer Mother Aneurysm Father Cancer Father Parkinsonism Father Family Status - Relation Status Age at Mother Father Level of Service:62580 [place] OFFICE/OUTPATIENT ESTABLISHED LOW MDM 20 MIN Reason for Visit and Comments: Follow-up [604862] - 6 month follow up Normal [place] HbA1c (Bld) [Mass fraction]o n 03-18-2023 Interpretation and review of laboratory results Normal [facility] [employer] [facility] [employer] POCT glycosylated hemoglobin (Hb A1C) docked deviceon 03-18-2023 HbA1c (Bld) [Mass fraction] 7.8 % [facility] [employer] CNPNon 12-25-2022 CNPN Telephone (TXCTGL) ALEX ALMONTE ([id number]) 1945 M Date Time Provider Department 12/25/22 KIDNEY TXP COORDINATORS TXCTGL During your visit today, we recorded the following information about you: Duane Ryan 12/25/2022 10:41 AM Signed Labs 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 Magic Cup [place] with lunch aspirin, enteric coated (ASPIRIN, ENTERIC [...] am? thanks! RF Pts RN at [facility] reports pts sister picks up Rx [...] [facility] Office [facility] 09-09-2022 Follow-up visit [id number] Zev Almontecasey 1945 M Date Provider Department Center 09/09/2022 [id number]-SARTHAK PARNELL MINDY [facility] Family History Problem Relation Age of Onset Cancer Mother Aneurysm Father Cancer Father Parkinsonism Father Family Status - Relation Status Age at Mother Father Level of Service:14038 [place] OFFICE/OUTPATIENT ESTABLISHED MOD MDM 30-39 MIN Normal [place] Glucose Poct Glucometerson 0 07-20-2022 Commemt1 Glu2: Cleaned Meter Normal [facility] Comment on above: Result Comment: PERF ORMED BY: [facility] [address] [place] [address] PATHOLOGIST PORCELAIN ENAMEL INSTALLER JOSE F ELLIOTT M.D. Performed By: #### G LULS #### Point of Care testing , Glucose [Mass/Vol] 176 mg/dL Normal [facility] Comment on above: Result Comment: [facility] Glucose Reference Range is dependent on time and content of last meal. Glucose of more than 200 mg/dL in a nonstressed, ambulatory subject supports the diagnosis of Diabetes Mellitus. Performed By: #### G LULS #### Point of Care testing , FK506 (TACROLIMUS) WHOLE BLO ODon 07-12-2022 Tacrolimus (FK506), Blood 10.9 ng/mL Normal 2.0-20.0 [facility] Comment on above: Result Comment: Trou gh (immediately following transplant) 15.0 . Trough (steady state, 2 weeks or more after transplant): 3.0 - 8.0 . Performed by LC-MS/MS technology. Performed By: #### F [id number] ####[facility] [address] [place] [address]Dr. Farhat Leal CBC AUTO DIFFon 07-10-2022 BASO # 0.0 103/ul Normal 0.0-0.1 [facility] Comment on above: Performed By: #### C BC ####[facility] O[address] [place], [place] [address]Dr. Farhat Leal Basophils/100 WBC (Bld) 0.5 % Normal 0.2-2.0 [facility] Comment on above: Performed By: #### C BC ####[facility] Dmjvfrloyn[address] [place], [place] [address]Dr. Farhat Leal EO # 0.3 103/ul Normal 0.0-0.7 [facility] Comment on above: Performed By: #### C BC ####[facility] C[address]zjznyis[address] [place], [place] [address]Dr. Farhat Elvis Eosinophils/100 WBC (Bld) 4.9 % Normal 0.9-7.0 [facility] Comment on above: Performed By: #### C BC ####[facility] X[address]nqumos[address] [place], [place] [address]Dr. Farhat Leal Erythrocyte distribution width (RBC) [Ratio] 13.8 % Normal 11.0-15.0 [facility] Comment on above: Performed By: #### C BC ####[facility] Wn[address] [place], [place] [address]Dr. Farhat Leal Hematocrit (Bld) [Volume fraction] 36.6 % Critically low 42.0-54.0 [facility] Comment on above: Performed By: #### C BC ####[facility] Ivzspwpygg[address] [place], [place] [address]Dr. Farhat Leal Hemoglobin (Bld) [Mass/Vol] 12.2 g/dL Critically low 14.0-18.0 [facility] Comment on above: Performed By: #### C BC ####[facility] Grbienhkol[address] [place], [place] [address]Dr. Madelynlorri Leal IG # 0.01 10e3/ul Normal 0.00-0.03 [facility] Comment on above: Performed By: #### C BC ####[facility] [address] [place] [id number]. Farhat Leal IG % 0.2 % Normal 0.0-0.5 [facility] Comment on above: Performed By: #### C BC ####[facility] Q[address] [place] [address]Dr. Farhat Leal LYMPH # 2.2 103/ul Normal 1.2-3.8 [facility] Comment on above: Performed By: #### C BC ####[facility] X[address]zu[address] [place] [phone]. Farhat Leal Lymphocytes/100 WBC (Bld) 33.9 % Normal 20.5-60.0 [facility] Comment on above: Performed By: #### C BC ####[facility] [address] [place] [address]Dr. Madelynlorri Leal MANUAL DIFF REQ NO Normal [facility] Comment on above: Performed By: #### C BC ####[facility] C[address] [place], [place] [address]Dr. Farhat Leal MCH (RBC) [Entitic mass] 31.0 pg Normal 25.9-34.0 [facility] Comment on above: Performed By: #### C BC ####[facility] [address] [place] [phone]. Farhat Leal MCHC (RBC) [Mass/Vol] 33.3 g/dL Normal 29.9-35.2 [facility] Comment on above: Performed By: #### C BC ####[facility] F[address] [place], [place] [address]Dr. Farhat Leal MCV (RBC) [Entitic vol] 93.1 fL Normal 80.0-94.0 [facility] Comment on above: Performed By: #### C BC ####[facility] X[address] [place] [id number]. Farhat Elvis MONO # 0.7 103/ul Normal 0.3-0.8 [facility] Comment on above: Performed By: #### C BC ####[facility] [address] [place] [phone]. Farhat Leal Monocytes/100 WBC (Bld) 10.8 % Normal 1.7-12.0 [facility] Comment on above: Performed By: #### C BC ####[facility] [address]dp[address] [place] [phone]. Farhat Leal NEUT # 3.2 103/ul Normal 1.4-6.5 [facility] Comment on above: Performed By: #### C BC ####[facility] X[address] [place] [phone]. Farhat Leal Neutrophils/100 WBC (Bld) 49.7 % Normal 43.0-75.0 [facility] Comment on above: Performed By: #### C BC ####[facility] [address]bi[address] [place] [phone]. Farhat Leal Platelet mean volume (Bld) [Entitic vol] 10.9 fL Normal 9.5-13.5 [facility] Comment on above: Performed By: #### C BC ####[facility] [address] [place] [phone]. Farhat Leal PLT 195 103/ul Normal 150-450 [facility] Comment on above: Performed By: #### C BC ####[facility] [address] [place] [phone]. Farhat Leal RBC 3.93 106/ul Critically low 4.70-6.10 [facility] Comment on above: Performed By: #### C BC ####[facility] [address] [place] [phone]. Farhat Leal WBC 6.4 103/ul Normal 4.0-11.0 [facility] Comment on above: Performed By: #### C BC ####[facility] [address] [place] [address]Dr. Farhat Leal MAGNESIUMon 07-10-2022 Magnesium [Mass/Vol] 1.9 mg/dL Normal 1.8-2.4 [facility] Comment on above: Performed By: #### M G, PHOS ####[facility] [address] [place] [address]Dr. Farhat Leal PHOSPHORUSon 07-10-2022 Phosphate [Mass/Vol] 4.7 mg/dL Normal 2.6-4.7 [facility] Comment on above: Performed By: #### M Anais PHOS ####[facility] [address] [place] [address]Dr. Farhat Leal PROF 14(COMP METB)on 023 Albumin [Mass/Vol] 2.7 g/dL Critically low 3.4-5.0 [facility] Comment on above: Performed By: #### C MP ####[facility] [address] [place], [place] [address]Dr. Farhat Leal Albumin/Globulin [Mass ratio] 0.8 {ratio} Normal [facility] Comment on above: Performed By: #### C MP ####[facility] [address]wly[address] [place], [place] [address]Dr. Farhat Leal ALP [Catalytic activity/Vol] 59 U/L Normal 46-116 [facility] Comment on above: Performed By: #### C MP ####[facility] [address] [place], [place] [address]Dr. Farhat Leal ALT [Catalytic activity/Vol] 16 U/L Normal 16-63 [facility] Comment on above: Performed By: #### C MP ####[facility] [address] [place] [address]Dr. Farhat Leal Anion gap [Moles/Vol] 12.3 mmol/L Normal [facility] Comment on above: Performed By: #### C MP ####[facility] [address]cr[address] [place] [address]Dr. Farhat Leal AST [Catalytic activity/Vol] 17 U/L Normal 15-37 [facility] Comment on above: Performed By: #### C MP ####[facility] Ap[address]viitw[address] [place] [address]Dr. Farhat Leal Bilirubin [Mass/Vol] 0.5 mg/dL Normal 0.2-1.0 [facility] Comment on above: Performed By: #### C MP ####[facility] Z[address]wqi56[address] [place] [phone]. Farhat Leal Calcium [Mass/Vol] 8.5 mg/dL Normal 8.5-10.1 [facility] Comment on above: Performed By: #### C MP ####[facility] [address]fyu[address] [place] [phone]. Farhat Leal Chloride [Moles/Vol] 104 mmol/L Normal 98-107 [facility] Comment on above: Performed By: #### C MP ####[facility] D[address]axkom[address] [place] [phone]. Farhat Leal CO2 [Moles/Vol] 27.6 mmol/L Normal 21.0-32.0 [facility] Comment on above: Performed By: #### C MP ####[facility] Xfc[address] [place], [place] [address]Dr. Farhat Elvis Creatinine [Mass/Vol] 1.79 mg/dL Critically high 0.70-1.30 [facility] Comment on above: Performed By: #### C MP ####[facility] [address]la[address] [place], [place] [address]Dr. Farhat Elvis EGFR-AF GHANAIAN 45 mL/min/1.73m2 Critically low >=60 [facility] Comment on above: Performed By: #### C MP ####[facility] [address]scr[address] [place] [address]Dr. Madelynlorri Elvis EGFR-NON AF GHANAIAN 37 mL/min/1.73m2 Critically low >=60 [facility] Comment on above: Performed By: #### C MP ####[facility] Why[address] [place], [place] [address]Dr. Madelynlorri Elvis Globulin (S) [Mass/Vol] 3.2 g/dL Normal [facility] Comment on above: Performed By: #### C MP ####[facility] Az[address]fqj06[address] [place] [phone]. Farhat Leal Glucose [Mass/Vol] 203 mg/dL Critically high 74-106 [facility] Comment on above: Performed By: #### C MP ####[facility] Cved[address]nses[address] [place] [address]Dr. Farhat Leal Potassium [Moles/Vol] 3.9 mmol/L Normal 3.5-5.1 [facility] Comment on above: Performed By: #### C MP ####[facility] [address] [place] [address]Dr. Farhat Leal Protein [Mass/Vol] 5.9 g/dL Critically low 6.4-8.2 [facility] Comment on above: Performed By: #### C MP ####[facility] B[address]zza[address] [place], [place] [address]Dr. Farhat Elvis Sodium [Moles/Vol] 140 mmol/L Normal 136-145 [facility] Comment on above: Performed By: #### C MP ####[facility] X[address]kritjsj[address] [place], [place] [address]Dr. Madelynlorri Leal Urea nitrogen [Mass/Vol] 61.0 mg/dL Critically high 7.0-18.0 [facility] Comment on above: Performed By: #### C MP ####[facility] C[address]qcwg[address] [place], [place] [address]Dr. Farhat Elvis Urea nitrogen/Creatinine [Mass ratio] 34.1 mg/mg Normal [facility] Comment on above: Performed By: #### C MP ####[facility] Du[address]nz[address]ixv[address] [place], [place] [address]Dr. Farhat Leal PROTIMEon 07-10-2022 INR Coag (PPP) [Relative time] 2.95 {INR} Normal [facility] Comment on above: Performed By: #### P T ####[facility] [address] [place], [place] [address]Dr. Farhat Leal INR GUIDELINES SEE BELOW Normal [facility] Comment on above: Result Comment: MALINA RED INR: 2.0 - 3.0 CONDITIONS NOT LISTED BELOW 2.5 - 3.5 FOR PROSTHETIC HEART VALVE REPLACEMENT 2.5 - 3.5 RECURRENT THROMBOSIS Performed By: #### P T ####[facility] [address] [place] [address]Dr. Madelynlorri Leal PT Coag (PPP) [Time] 29.4 s Critically high 9.0-11.6 [facility] Comment on above: Performed By: #### P T ####[facility] [address] [place], [place] [address]Dr. Farhat Elvis FK506 (TACROLIMUS) WHOLE BLO ODon 07-07-2022 Tacrolimus (FK506), Blood 8.3 ng/mL Normal 2.0-20.0 [facility] Comment on above: Result Comment: Trou gh (immediately following transplant) 15.0 . Trough (steady state, 2 weeks or more after transplant): 3.0 - 8.0 . Performed by LC-MS/MS technology. Performed By: #### F K506T ####[facility] Wikhtmsnds[address] [place], [place] [address]Dr. Madelynlorri Leal CBC AUTO DIFFon 07-03-2022 BASO # 0.0 103/ul Normal 0.0-0.1 [facility] Comment on above: Performed By: #### C BC ####[facility] [address] [place], [place] [address]Dr. Farhat Leal Basophils/100 WBC (Bld) 0.6 % Normal 0.2-2.0 [facility] Comment on above: Performed By: #### C BC ####[facility] U[address]sf[address]fxmoi[address] [place], [place] [address]Dr. Farhat Leal EO # 0.3 103/ul Normal 0.0-0.7 [facility] Comment on above: Performed By: #### C BC ####[facility] Mrjyibnswa[address] [place], [place] [address]Dr. Farhat Leal Eosinophils/100 WBC (Bld) 4.1 % Normal 0.9-7.0 [facility] Comment on above: Performed By: #### C BC ####[facility] Qodhkttmep[address] [place], [place] [address]Dr. Farhat Leal Erythrocyte distribution width (RBC) [Ratio] 14.0 % Normal 11.0-15.0 [facility] Comment on above: Performed By: #### C BC ####[facility] [address]is[address] [place] [address]Dr. Farhat Leal Hematocrit (Bld) [Volume fraction] 35.9 % Critically low 42.0-54.0 [facility] Comment on above: Performed By: #### C BC ####[facility] Qsvrjhrveh[address] [place] [address]Dr. Farhat Leal Hemoglobin (Bld) [Mass/Vol] 12.0 g/dL Critically low 14.0-18.0 [facility] Comment on above: Performed By: #### C BC ####[facility] Q[address]vtamkt[address] [place], [place] [address]Dr. Farhat Leal IG # 0.04 10e3/ul Critically high 0.00-0.03 [facility] Comment on above: Performed By: #### C BC ####[facility] [address]wydsl[address] [place], [place] [address]Dr. Madelynlorri Leal IG % 0.6 % Critically high 0.0-0.5 [facility] Comment on above: Performed By: #### C BC ####[facility] [address]ku[address] [place], [place] [address]Dr. Farhat Elvis LYMPH # 1.5 103/ul Normal 1.2-3.8 [facility] Comment on above: Performed By: #### C BC ####[facility] Immpamzkiz[address] [place], [place] [address]Dr. Madelynlorri Leal Lymphocytes/100 WBC (Bld) 21.5 % Normal 20.5-60.0 [facility] Comment on above: Performed By: #### C BC ####[facility] M[address]tytfar[address] [place], [place] [address]Dr. Madelynlorri Leal MANUAL DIFF REQ NO Normal [facility] Comment on above: Performed By: #### C BC ####[facility] [address]qeeprt[address] [place], [place] [address]Dr. Farhat Leal MCH (RBC) [Entitic mass] 30.8 pg Normal 25.9-34.0 [facility] Comment on above: Performed By: #### C BC ####[facility] [address]35[address] [place] [id number]. Madelynlorri Leal MCHC (RBC) [Mass/Vol] 33.4 g/dL Normal 29.9-35.2 [facility] Comment on above: Performed By: #### C BC ####[facility] [address]rkf9352 [place] [phone]. Farhat Leal MCV (RBC) [Entitic vol] 92.1 fL Normal 80.0-94.0 [facility] Comment on above: Performed By: #### C BC ####[facility] [address]imqhe[address] [place], [place] [address]Dr. Farhat Leal MONO # 0.6 103/ul Normal 0.3-0.8 [facility] Comment on above: Performed By: #### C BC ####[facility] Pknclpyjaw[address] [place], [place] [address]Dr. Farhat Leal Monocytes/100 WBC (Bld) 8.7 % Normal 1.7-12.0 [facility] Comment on above: Performed By: #### C BC ####[facility] [address]qj[address] [place], [place] [address]Dr. Farhat Leal NEUT # 4.4 103/ul Normal 1.4-6.5 [facility] Comment on above: Performed By: #### C BC ####[facility] Rxibreyyqq[address] [place], [place] [address]Dr. Farhat Leal Neutrophils/100 WBC (Bld) 64.5 % Normal 43.0-75.0 [facility] Comment on above: Performed By: #### C BC ####[facility] [address]tcks[address] [place], [place] [address]Dr. Farhat Leal Platelet mean volume (Bld) [Entitic vol] 10.1 fL Normal 9.5-13.5 [facility] Comment on above: Performed By: #### C BC ####[facility] [address]rdw[address] [place], [place] [address]Dr. Farhat Leal PLT 177 103/ul Normal 150-450 [facility] Comment on above: Performed By: #### C BC ####[facility] Z[address]zug[address] [place] [phone]. Madelynlorri Elvis RBC 3.90 106/ul Critically low 4.70-6.10 [facility] Comment on above: Performed By: #### C BC ####[facility] G[address]wlqw[address] [place] [phone]. Farhat Leal WBC 6.8 103/ul Normal 4.0-11.0 [facility] Comment on above: Performed By: #### C BC ####[facility] [address]cx[address]rpgr[address] [place] [address]Dr. Farhat Leal PROF 14(COMP METB)on 023 Albumin [Mass/Vol] 2.8 g/dL Critically low 3.4-5.0 [facility] Comment on above: Performed By: #### C MP ####[facility] [address]jki[address] [place], [place] [address]Dr. Farhat Leal Albumin/Globulin [Mass ratio] 0.8 {ratio} Normal [facility] Comment on above: Performed By: #### C MP ####[facility] [address]kwmeib[address] [place], [place] [address]Dr. Madelynlorri Leal ALP [Catalytic activity/Vol] 68 U/L Normal 46-116 [facility] Comment on above: Performed By: #### C MP ####[facility] K[address]bdwos[address] [place] [address]Dr. Farhat Leal ALT [Catalytic activity/Vol] 20 U/L Normal 16-63 [facility] Comment on above: Performed By: #### C MP ####[facility] [address]wsvjyf[address] [place] [address]Dr. Farhat Leal Anion gap [Moles/Vol] 11.1 mmol/L Normal [facility] Comment on above: Performed By: #### C MP ####[facility] V[address]qevhrhd[address] [place] [address]Dr. Farhat Leal AST [Catalytic activity/Vol] 22 U/L Normal 15-37 [facility] Comment on above: Performed By: #### C MP ####[facility] H[address]ynk[address] [place] [id number]. Farhat Leal Bilirubin [Mass/Vol] 0.4 mg/dL Normal 0.2-1.0 [facility] Comment on above: Performed By: #### C MP ####[facility] Xbpigwegbp1756 [place] [id number]. Farhat Leal Calcium [Mass/Vol] 8.5 mg/dL Normal 8.5-10.1 [facility] Comment on above: Performed By: #### C MP ####[facility] Valzwkirjl[address] [place] [address]Dr. Farhat Leal Chloride [Moles/Vol] 106 mmol/L Normal 98-107 [facility] Comment on above: Performed By: #### C MP ####[facility] [address]bkpjpei[address] [place], [place] [address]Dr. Farhat Leal CO2 [Moles/Vol] 29.1 mmol/L Normal 21.0-32.0 [facility] Comment on above: Performed By: #### C MP ####[facility] [address]krnrss[address] [place], [place] [address]Dr. Farhat Leal Creatinine [Mass/Vol] 1.70 mg/dL Critically high 0.70-1.30 [facility] Comment on above: Performed By: #### C MP ####[facility] [address]vu[address] [place], [place] [address]Dr. Farhat Leal EGFR-AF GHANAIAN 48 mL/min/1.73m2 Critically low >=60 [facility] Comment on above: Performed By: #### C MP ####[facility] U[address]jmzq[address] [place], [place] [address]Dr. Farhat Leal EGFR-NON AF GHANAIAN 39 mL/min/1.73m2 Critically low >=60 [facility] Comment on above: Performed By: #### C MP ####[facility] [address]fl[address] [place], [place] [address]Dr. Farhat Leal Globulin (S) [Mass/Vol] 3.6 g/dL Normal [facility] Comment on above: Performed By: #### C MP ####[facility] [address]nsuvkgt[address] [place] [address]Dr. Farhat Leal Glucose [Mass/Vol] 312 mg/dL Critically high 74-106 [facility] Comment on above: Performed By: #### C MP ####[facility] [address]ozihc[address] [place] [address]Dr. Farhat Leal Potassium [Moles/Vol] 4.2 mmol/L Normal 3.5-5.1 [facility] Comment on above: Performed By: #### C MP ####[facility] Rjrovkmbfi7602 [place] [address]Dr. Farhat Leal Protein [Mass/Vol] 6.4 g/dL Normal 6.4-8.2 [facility] Comment on above: Performed By: #### C MP ####[facility] Tgnsxshrwl[address] [place], [place] [address]Dr. Farhat Leal Sodium [Moles/Vol] 142 mmol/L Normal 136-145 [facility] Comment on above: Performed By: #### C MP ####[facility] Pffxfzomhi[address] [place], [place] [address]Dr. Farhat Leal Urea nitrogen [Mass/Vol] 49.0 mg/dL Critically high 7.0-18.0 [facility] Comment on above: Performed By: #### C MP ####[facility] Pjdoqhczam[address] [place], [place] [address]Dr. Madelynlorri Elvis Urea nitrogen/Creatinine [Mass ratio] 28.8 mg/mg Normal [facility] Comment on above: Performed By: #### C MP ####[facility] Irvcuvscpd[address] [place], [place] [address]Dr. Farhat Leal PROTIMEon 07-03-2022 INR Coag (PPP) [Relative time] 2.23 {INR} Normal [facility] Comment on above: Performed By: #### P T ####[facility] Jfznzbwgwg4[address] [place], [place] [address]Dr. Farhat Leal INR GUIDELINES SEE BELOW Normal [facility] Comment on above: Result Comment: MALINA RED INR: 2.0 - 3.0 CONDITIONS NOT LISTED BELOW 2.5 - 3.5 FOR PROSTHETIC HEART VALVE REPLACEMENT 2.5 - 3.5 RECURRENT THROMBOSIS Performed By: #### P T ####[facility] Tolknsbzgz1203 [place] [address]DrSkylar Farhat Leal PT Coag (PPP) [Time] 22.6 s Critically high 9.0-11.6 [facility] Comment on above: Performed By: #### P T ####[facility] Sfnsogdnxn[address] [place], [place] [address]DrSkylar Leal FK506 (TACROLIMUS) WHOLE BLO ODon 06-29-2022 Tacrolimus (FK506), Blood 12.2 ng/mL Normal 2.0-20.0 [facility] Comment on above: Result Comment: Trou gh (immediately following transplant) 15.0 . Trough (steady state, 2 weeks or more after transplant): 3.0 - 8.0 . Performed by LC-MS/MS technology. Performed By: #### F K506T ####[facility] Iqeingbimn5376[address] [place], [place] [address]Dr. Farhat Elvis CBC AUTO DIFFon 06-26-2022 BASO # 0.0 103/ul Normal 0.0-0.1 [facility] Comment on above: Performed By: #### C BC ####[facility] Zhngxulvin0[address] [place], [place] [address]Dr. Farhat Leal Basophils/100 WBC (Bld) 0.5 % Normal 0.2-2.0 [facility] Comment on above: Performed By: #### C BC ####[facility] Qngkmgadbe5032[address] [place], [place] [address]Dr. Farhat Leal EO # 0.3 103/ul Normal 0.0-0.7 [facility] Comment on above: Performed By: #### C BC ####[facility] Uyigcbwmmi0134[address] [place], [place] [address]Dr. Farhat Leal Eosinophils/100 WBC (Bld) 4.3 % Normal 0.9-7.0 [facility] Comment on above: Performed By: #### C BC ####[facility] Ugiidwbvam5305[address] [place], [place] [address]Dr. Farhat Leal Erythrocyte distribution width (RBC) [Ratio] 14.1 % Normal 11.0-15.0 [facility] Comment on above: Performed By: #### C BC ####[facility] Xklutslhnf0131[address] [place], [place] [address]Dr. Farhat Leal Hematocrit (Bld) [Volume fraction] 35.4 % Critically low 42.0-54.0 [facility] Comment on above: Performed By: #### C BC ####[facility] Kjlcbowwqb67[address] [place], [place] [address]Dr. Madelynlorri Leal Hemoglobin (Bld) [Mass/Vol] 11.8 g/dL Critically low 14.0-18.0 [facility] Comment on above: Performed By: #### C BC ####[facility] Pyvcjecxiy4634[address] [place], [place] [address]Dr. Farhat Leal IG # 0.02 10e3/ul Normal 0.00-0.03 [facility] Comment on above: Performed By: #### C BC ####[facility] Hrgwfxeapt119[address] [place], [place] [address]Dr. Madelynlorri Leal IG % 0.3 % Normal 0.0-0.5 [facility] Comment on above: Performed By: #### C BC ####[facility] Yjscqhymhr13[address] [place], [place] [address]Dr. Farhat Leal LYMPH # 2.4 103/ul Normal 1.2-3.8 [facility] Comment on above: Performed By: #### C BC ####[facility] Lbpnybhycn077[address] [place], [place] [address]Dr. Farhat Leal Lymphocytes/100 WBC (Bld) 40.4 % Normal 20.5-60.0 [facility] Comment on above: Performed By: #### C BC ####[facility] Alppuqcvbe8889[address] [place], [place] [address]Dr. Farhat Leal MANUAL DIFF REQ NO Normal [facility] Comment on above: Performed By: #### C BC ####[facility] Eziupzatue78[address] [place], [place] [address]Dr. Farhat Leal MCH (RBC) [Entitic mass] 31.0 pg Normal 25.9-34.0 [facility] Comment on above: Performed By: #### C BC ####[facility] Rrxkwcmvzf1199 [place] [address]Dr. Farhat Leal MCHC (RBC) [Mass/Vol] 33.3 g/dL Normal 29.9-35.2 [facility] Comment on above: Performed By: #### C BC ####[facility] Vrnfrbkpsx5588 [place] [address]Dr. Farhat Elvis MCV (RBC) [Entitic vol] 92.9 fL Normal 80.0-94.0 [facility] Comment on above: Performed By: #### C BC ####[facility] Upqafgooiz7390 [place] [address]Dr. Farhat Elvis MONO # 0.7 103/ul Normal 0.3-0.8 [facility] Comment on above: Performed By: #### C BC ####[facility] Lwtjusrehd74[address] [place], [place] [address]Dr. Madelynlorri Leal Monocytes/100 WBC (Bld) 11.1 % Normal 1.7-12.0 [facility] Comment on above: Performed By: #### C BC ####[facility] Wlknljousi1356[address] [place], [place] [address]Dr. Farhat Leal NEUT # 2.6 103/ul Normal 1.4-6.5 [facility] Comment on above: Performed By: #### C BC ####[facility] Jczoqaovaj7627[address] [place], [place] [address]Dr. Madelynlorri Leal Neutrophils/100 WBC (Bld) 43.4 % Normal 43.0-75.0 [facility] Comment on above: Performed By: #### C BC ####[facility] Bufetikvkw6439[address] [place], [place] [address]Dr. Madelynlorri Leal Platelet mean volume (Bld) [Entitic vol] 10.4 fL Normal 9.5-13.5 [facility] Comment on above: Performed By: #### C BC ####[facility] [address]xvrodvv[address] [place] [id number]. Madelynlorri Elvis PLT 211 103/ul Normal 150-450 [facility] Comment on above: Performed By: #### C BC ####[facility] Jcssrmoqqr5330 [place] [address]Dr. Farhat Leal RBC 3.81 106/ul Critically low 4.70-6.10 [facility] Comment on above: Performed By: #### C BC ####[facility] Egomkiegua3125 [place] [address]Dr. Madelynlorri Elvis WBC 6.0 103/ul Normal 4.0-11.0 [facility] Comment on above: Performed By: #### C BC ####[facility] Zdhbsdlskw8916 [place] [address]Dr. Frahat Leal PROF 14(COMP METB)on 023 Albumin [Mass/Vol] 2.6 g/dL Critically low 3.4-5.0 [facility] Comment on above: Performed By: #### C MP ####[facility] Bsbxszbluq985[address] [place], [place] [address]Dr. Farhat Leal Albumin/Globulin [Mass ratio] 0.8 {ratio} Normal [facility] Comment on above: Performed By: #### C MP ####[facility] Hffbacndhd589[address] [place], [place] [address]Dr. Farhat eLal ALP [Catalytic activity/Vol] 64 U/L Normal 46-116 [facility] Comment on above: Performed By: #### C MP ####[facility] Hjokpzicfp6036[address] [place], [place] [address]Dr. Farhat Leal ALT [Catalytic activity/Vol] 18 U/L Normal 16-63 [facility] Comment on above: Performed By: #### C MP ####[facility] Khsmxpasto5627[address] [place], [place] [address]Dr. Farhat Leal Anion gap [Moles/Vol] 10.2 mmol/L Normal [facility] Comment on above: Performed By: #### C MP ####[facility] Zxbskxater[address] [place], [place] [id number]. Farhat Leal AST [Catalytic activity/Vol] 16 U/L Normal 15-37 [facility] Comment on above: Performed By: #### C MP ####[facility] Va[address]wdhrs3943 [place] [address]Dr. Farhat Leal Bilirubin [Mass/Vol] 0.6 mg/dL Normal 0.2-1.0 [facility] Comment on above: Performed By: #### C MP ####[facility] Aprlnndsff8286[address] [place], [place] [address]Dr. Farhat Leal Calcium [Mass/Vol] 8.5 mg/dL Normal 8.5-10.1 [facility] Comment on above: Performed By: #### C MP ####[facility] Pzkgbkqjtg01[address] [place], [place] [address]Dr. Farhat Leal Chloride [Moles/Vol] 106 mmol/L Normal 98-107 [facility] Comment on above: Performed By: #### C MP ####[facility] Yznzhosdpd896[address] [place], [place] [address]Dr. Farhat Leal CO2 [Moles/Vol] 29.8 mmol/L Normal 21.0-32.0 [facility] Comment on above: Performed By: #### C MP ####[facility] Dlpzgaltem9[address] [place], [place] [address]Dr. Farhat Leal Creatinine [Mass/Vol] 1.60 mg/dL Critically high 0.70-1.30 [facility] Comment on above: Performed By: #### C MP ####[facility] Apfkgnknkn65[address] [place], [place] [address]Dr. Farhat Leal EGFR-AF GHANAIAN 51 mL/min/1.73m2 Critically low >=60 [facility] Comment on above: Performed By: #### C MP ####[facility] Tmquwcijfv315[address] [place], [place] [address]Dr. Farhat Leal EGFR-NON AF GHANAIAN 42 mL/min/1.73m2 Critically low >=60 [facility] Comment on above: Performed By: #### C MP ####[facility] Hgnbngkgsd2696 [place] [address]Dr. Farhat Leal Globulin (S) [Mass/Vol] 3.4 g/dL Normal [facility] Comment on above: Performed By: #### C MP ####[facility] Uyseojwhtp455[address] [place], [place] [address]Dr. Farhat Leal Glucose [Mass/Vol] 178 mg/dL Critically high 74-106 [facility] Comment on above: Performed By: #### C MP ####[facility] Qmfqqkbjjz9146[address] [place], [place] [address]Dr. Farhat Leal Potassium [Moles/Vol] 4.0 mmol/L Normal 3.5-5.1 [facility] Comment on above: Performed By: #### C MP ####[facility] Aiursvogbz3939[address] [place], [place] [address]Dr. Farhat Leal Protein [Mass/Vol] 6.0 g/dL Critically low 6.4-8.2 [facility] Comment on above: Performed By: #### C MP ####[facility] Stzgugqrbz7[address] [place], [place] [address]Dr. Farhat Leal Sodium [Moles/Vol] 142 mmol/L Normal 136-145 [facility] Comment on above: Performed By: #### C MP ####[facility] Hxvmrkqhlk97[address] [place], [place] [address]Dr. Farhat Leal Urea nitrogen [Mass/Vol] 49.0 mg/dL Critically high 7.0-18.0 [facility] Comment on above: Performed By: #### C MP ####[facility] Scrhudqkhb319[address] [place], [place] [address]Dr. Farhat Leal Urea nitrogen/Creatinine [Mass ratio] 30.6 mg/mg Normal [facility] Comment on above: Performed By: #### C MP ####[facility] Jjnyvsrxii23[address] [place], [place] [address]Dr. Farhat Leal PROTIMEon 06-26-2022 INR Coag (PPP) [Relative time] 1.77 {INR} Normal [facility] Comment on above: Performed By: #### P T ####[facility] Qkesahqwia2894 [place] [address]DrSkylar Leal INR GUIDELINES SEE BELOW Normal [facility] Comment on above: Result Comment: MALINA RED INR: 2.0 - 3.0 CONDITIONS NOT LISTED BELOW 2.5 - 3.5 FOR PROSTHETIC HEART VALVE REPLACEMENT 2.5 - 3.5 RECURRENT THROMBOSIS Performed By: #### P T ####[facility] Yeeedavxvy7[address] [place], [place] [address]Dr. Farhat Leal PT Coag (PPP) [Time] 18.2 s Critically high 9.0-11.6 [facility] Comment on above: Performed By: #### P T ####[facility] Gzukqbrkmg238[address] [place], [place] [address]DrSkylar Leal FK506 (TACROLIMUS) WHOLE BLO ODon 06-22-2022 Tacrolimus (FK506), Blood 24.5 ng/mL Invalid Interpretation Code 2.0-20.0 [facility] Comment on above: Result Comment: Trou gh (immediately following transplant) 15.0 . Trough (steady state, 2 weeks or more after transplant): 3.0 - 8.0 . Performed by LC-MS/MS technology.Patient drug level exceeds published reference range. Evaluateclinically for signs of potential toxicity. Performed By: #### F K506T ####[facility] Hdvlxmjcdm5[address] [place], [place] [address]Dr. Farhat Leal CBC AUTO DIFFon 06-19-2022 BASO # 0.1 103/ul Normal 0.0-0.1 [facility] Comment on above: Performed By: #### C BC ####[facility] Tguhemjysh4[address] [place], [place] [address]Dr. Farhat Leal Basophils/100 WBC (Bld) 0.7 % Normal 0.2-2.0 [facility] Comment on above: Performed By: #### C BC ####[facility] Fpegcyzzxl3926[address] [place], [place] [address]DrSkylar Leal EO # 0.4 103/ul Normal 0.0-0.7 [facility] Comment on above: Performed By: #### C BC ####[facility] Tztmditawu22[address] [place] [address]Dr. Farhat Leal Eosinophils/100 WBC (Bld) 5.7 % Normal 0.9-7.0 [facility] Comment on above: Performed By: #### C BC ####[facility] Gfqxjvjhun8072 [place] [address]Dr. Farhat Leal Erythrocyte distribution width (RBC) [Ratio] 14.5 % Normal 11.0-15.0 [facility] Comment on above: Performed By: #### C BC ####[facility] Bgvefaxxqp497[address] [place], [place] [address]Dr. Farhat Leal Hematocrit (Bld) [Volume fraction] 34.1 % Critically low 42.0-54.0 [facility] Comment on above: Performed By: #### C BC ####[facility] Exjhhoaxle8536[address] [place], [place] [address]Dr. Farhat Leal Hemoglobin (Bld) [Mass/Vol] 11.3 g/dL Critically low 14.0-18.0 [facility] Comment on above: Performed By: #### C BC ####[facility] Chuxkctbcn55[address] [place], [place] [address]Dr. Farhat Leal IG # 0.02 10e3/ul Normal 0.00-0.03 [facility] Comment on above: Performed By: #### C BC ####[facility] Dsirhbbuwf6[address] [place], [place] [address]Dr. Farhat Leal IG % 0.3 % Normal 0.0-0.5 [facility] Comment on above: Performed By: #### C BC ####[facility] Xresclnvfs907[address] [place], [place] [address]Dr. Farhat Leal LYMPH # 3.1 103/ul Normal 1.2-3.8 [facility] Comment on above: Performed By: #### C BC ####[facility] Ocgngavvck6[address] [place], [place] [address]Dr. Farhat Leal Lymphocytes/100 WBC (Bld) 40.6 % Normal 20.5-60.0 [facility] Comment on above: Performed By: #### C BC ####[facility] Ryabedgecy1897 [place] [phone]. Farhat Leal MANUAL DIFF REQ NO Normal [facility] Comment on above: Performed By: #### C BC ####[facility] Vnplbkizdn3314 [place] [phone]. Farhat Leal MCH (RBC) [Entitic mass] 30.6 pg Normal 25.9-34.0 [facility] Comment on above: Performed By: #### C BC ####[facility] Teswfklhyg2001 [place] [address]Dr. Farhat Leal MCHC (RBC) [Mass/Vol] 33.1 g/dL Normal 29.9-35.2 [facility] Comment on above: Performed By: #### C BC ####[facility] Fprmllcngg4584 [place] [address]Dr. Farhat Leal MCV (RBC) [Entitic vol] 92.4 fL Normal 80.0-94.0 [facility] Comment on above: Performed By: #### C BC ####[facility] Elymsnoscm54[address] [place], [place] [address]Dr. Farhat Elvis MONO # 0.8 103/ul Normal 0.3-0.8 [facility] Comment on above: Performed By: #### C BC ####[facility] Ctyjyetidf40[address] [place], [place] [address]Dr. Farhat Elvis Monocytes/100 WBC (Bld) 10.6 % Normal 1.7-12.0 [facility] Comment on above: Performed By: #### C BC ####[facility] Sbpxdopgcu[address] [place], [place] [address]Dr. Farhat Leal NEUT # 3.2 103/ul Normal 1.4-6.5 [facility] Comment on above: Performed By: #### C BC ####[facility] Bvfdznlthk38[address] [place], [place] [address]Dr. Madelynlorri Leal Neutrophils/100 WBC (Bld) 42.1 % Critically low 43.0-75.0 [facility] Comment on above: Performed By: #### C BC ####[facility] Csibxajtof0690 [place] [phone]. Farhat Leal Platelet mean volume (Bld) [Entitic vol] 10.6 fL Normal 9.5-13.5 [facility] Comment on above: Performed By: #### C BC ####[facility] Qyzrrcfepo5847 [place] [phone]. Farhat Leal PLT 187 103/ul Normal 150-450 [facility] Comment on above: Performed By: #### C BC ####[facility] Azanhmcdng1056 [place] [address]Dr. Farhat Leal RBC 3.69 106/ul Critically low 4.70-6.10 [facility] Comment on above: Performed By: #### C BC ####[facility] Vxtftaipdj6538 [place] [address]Dr. Farhat Leal WBC 7.7 103/ul Normal 4.0-11.0 [facility] Comment on above: Performed By: #### C BC ####[facility] Umhkyitolw8135 [place] [address]Dr. Farhat Leal PROF 14(COMP METB)on 023 Albumin [Mass/Vol] 2.5 g/dL Critically low 3.4-5.0 [facility] Comment on above: Performed By: #### C MP ####[facility] Tpygnvxyfn9648 [place] [address]Dr. Farhat Leal Albumin/Globulin [Mass ratio] 0.8 {ratio} Normal [facility] Comment on above: Performed By: #### C MP ####[facility] Rybjnrrtkb7369 [place] [address]Dr. Farhat Leal ALP [Catalytic activity/Vol] 60 U/L Normal 46-116 [facility] Comment on above: Performed By: #### C MP ####[facility] Wszxrcaiut2404 [place] [address]Dr. Farhat Leal ALT [Catalytic activity/Vol] 16 U/L Normal 16-63 [facility] Comment on above: Performed By: #### C MP ####[facility] Xfszspsbiq3613 [place] [address]Dr. Farhat Leal Anion gap [Moles/Vol] 9.1 mmol/L Normal [facility] Comment on above: Performed By: #### C MP ####[facility] Evcnvroiva4[address] [place], [place] [address]Dr. Farhat Leal AST [Catalytic activity/Vol] 31 U/L Normal 15-37 [facility] Comment on above: Performed By: #### C MP ####[facility] Sururztrhk6[address] [place], [place] [address]Dr. Farhat Leal Bilirubin [Mass/Vol] 0.3 mg/dL Normal 0.2-1.0 [facility] Comment on above: Performed By: #### C MP ####[facility] Lklfybujoi8616[address] [place], [place] [address]Dr. Farhat Leal Calcium [Mass/Vol] 8.2 mg/dL Critically low 8.5-10.1 Th [facility] Comment on above: Performed By: #### C MP ####[facility] Zdlmfzsfct7044[address] [place], [place] [address]Dr. Farhat Leal Chloride [Moles/Vol] 106 mmol/L Normal 98-107 [facility] Comment on above: Performed By: #### C MP ####[facility] Cokpayjyas64[address] [place], [place] [address]Dr. Farhat Leal CO2 [Moles/Vol] 27.0 mmol/L Normal 21.0-32.0 [facility] Comment on above: Performed By: #### C MP ####[facility] Lgbgbnsyux87[address] [place], [place] [address]Dr. Farhat Elvis Creatinine [Mass/Vol] 1.51 mg/dL Critically high 0.70-1.30 [facility] Comment on above: Performed By: #### C MP ####[facility] Vwziorzyzd3746[address] [place], [place] [address]Dr. Farhat Elvis EGFR-AF GHANAIAN 55 mL/min/1.73m2 Critically low >=60 [facility] Comment on above: Performed By: #### C MP ####[facility] Ppytshdoon1607 [place] [address]Dr. Farhat Leal EGFR-NON AF GHANAIAN 45 mL/min/1.73m2 Critically low >=60 [facility] Comment on above: Performed By: #### C MP ####[facility] Kfojdpejon9628 [place] [address]Dr. Farhat Leal Globulin (S) [Mass/Vol] 3.2 g/dL Normal [facility] Comment on above: Performed By: #### C MP ####[facility] Qdmosshvps6889 [place] [address]Dr. Farhat Leal Glucose [Mass/Vol] 165 mg/dL Critically high 74-106 T [facility] Comment on above: Performed By: #### C MP ####[facility] Lfrkqpghbv2907 [place] [address]Dr. Farhat Leal Potassium [Moles/Vol] 4.1 mmol/L Normal 3.5-5.1 [facility] Comment on above: Performed By: #### C MP ####[facility] Jbnltkmumn6758[address] [place], [place] [address]Dr. Farhat Leal Protein [Mass/Vol] 5.7 g/dL Critically low 6.4-8.2 Th [facility] Comment on above: Performed By: #### C MP ####[facility] Thbtjhrnjp7[address] [place], [place] [address]Dr. Farhat Leal Sodium [Moles/Vol] 138 mmol/L Normal 136-145 [facility] Comment on above: Performed By: #### C MP ####[facility] Lidoxtjeqo0693 [place] [address]Dr. Farhat Leal Urea nitrogen [Mass/Vol] 51.0 mg/dL Critically high 7.0-18.0 [facility] Comment on above: Performed By: #### C MP ####[facility] Kytetyfchn26[address] [place], [place] [address]Dr. Farhat Leal Urea nitrogen/Creatinine [Mass ratio] 33.8 mg/mg Normal [facility] Comment on above: Performed By: #### C MP ####[facility] Cziwehfild7258[address] [place], [place] [address]Dr. Farhat Leal FK506 (TACROLIMUS) WHOLE BLO ODon 06-15-2022 Tacrolimus (FK506), Blood 16.4 ng/mL Normal 2.0-20.0 [facility] Comment on above: Result Comment: Trou gh (immediately following transplant) 15.0 . Trough (steady state, 2 weeks or more after transplant): 3.0 - 8.0 . Performed by LC-MS/MS technology. Performed By: #### F K506T ####[facility] Gixalokhoi0[address] [place], [place] [address]Dr. Farhat Leal PROTIMEon 06-15-2022 INR Coag (PPP) [Relative time] 1.64 {INR} Normal [facility] Comment on above: Performed By: #### P T ####[facility] V[address]vuftvtu4[address] [place], [place] [address]Dr. Farhat Leal INR GUIDELINES SEE BELOW Normal [facility] Comment on above: Result Comment: MALINA RED INR: 2.0 - 3.0 CONDITIONS NOT LISTED BELOW 2.5 - 3.5 FOR PROSTHETIC HEART VALVE REPLACEMENT 2.5 - 3.5 RECURRENT THROMBOSIS Performed By: #### P T ####[facility] Fxmstlwkxe2237[address] [place], [place] [address]DrSkylar Leal PT Coag (PPP) [Time] 16.9 s Critically high 9.0-11.6 [facility] Comment on above: Performed By: #### P T ####[facility] Yzvysupueq[address] [place], [place] [address]DrSkylar Leal CBC AUTO DIFFon 06-12-2022 BASO # 0.0 103/ul Normal 0.0-0.1 [facility] Comment on above: Performed By: #### C BC ####[facility] Xomcwinzyc[address] [place], [place] [address]DrSkylar Leal Basophils/100 WBC (Bld) 0.4 % Normal 0.2-2.0 [facility] Comment on above: Performed By: #### C BC ####[facility] Dvsbfesuxv6[address] [place], [place] [address]DrSkylar Leal EO # 0.4 103/ul Normal 0.0-0.7 [facility] Comment on above: Performed By: #### C BC ####[facility] Icuqonqugc11[address] [place], [place] [address]Dr. Farhat Leal Eosinophils/100 WBC (Bld) 5.4 % Normal 0.9-7.0 [facility] Comment on above: Performed By: #### C BC ####[facility] Vuwpscdjjm6433[address] [place], [place] [address]Dr. Farhat Leal Erythrocyte distribution width (RBC) [Ratio] 14.7 % Normal 11.0-15.0 [facility] Comment on above: Performed By: #### C BC ####[facility] Lstptsewsw[address] [place], [place] [address]Dr. Farhat Leal Hematocrit (Bld) [Volume fraction] 34.8 % Critically low 42.0-54.0 [facility] Comment on above: Performed By: #### C BC ####[facility] Dpnlqfazny4[address] [place], [place] [address]Dr. Farhat Leal Hemoglobin (Bld) [Mass/Vol] 11.7 g/dL Critically low 14.0-18.0 [facility] Comment on above: Performed By: #### C BC ####[facility] Rqvknrzypu[address] [place], [place] [address]Dr. Farhat Elvis IG # 0.02 10e3/ul Normal 0.00-0.03 [facility] Comment on above: Performed By: #### C BC ####[facility] Sqociacaqj[address] [place], [place] [address]Dr. Farhat Elvis IG % 0.3 % Normal 0.0-0.5 [facility] Comment on above: Performed By: #### C BC ####[facility] Y[address]qbxiue[address] [place], [place] [address]Dr. Farhat Leal LYMPH # 2.5 103/ul Normal 1.2-3.8 [facility] Comment on above: Performed By: #### C BC ####[facility] Vjcznltkwj[address] [place], [place] [address]DrSkylar Leal Lymphocytes/100 WBC (Bld) 36.8 % Normal 20.5-60.0 [facility] Comment on above: Performed By: #### C BC ####[facility] [address] [place] [address]DrSkylar Leal MANUAL DIFF REQ NO Normal [facility] Comment on above: Performed By: #### C BC ####[facility] Upnuunnivc[address] [place] [address]DrSkylar Leal MCH (RBC) [Entitic mass] 30.9 pg Normal 25.9-34.0 [facility] Comment on above: Performed By: #### C BC ####[facility] Tkevwpfwyk[address] [place], [place] [address]DrSkylar Leal MCHC (RBC) [Mass/Vol] 33.6 g/dL Normal 29.9-35.2 [facility] Comment on above: Performed By: #### C BC ####[facility] Fcxyssxjrk75[address] [place], [place] [address]DrSkylar Leal MCV (RBC) [Entitic vol] 91.8 fL Normal 80.0-94.0 [facility] Comment on above: Performed By: #### C BC ####[facility] Xmxzugynal16[address] [place], [place] [address]DrSkylar Leal MONO # 0.8 103/ul Normal 0.3-0.8 [facility] Comment on above: Performed By: #### C BC ####[facility] Klhzlelngr[address] [place], [place] [address]DrSkylar Leal Monocytes/100 WBC (Bld) 11.9 % Normal 1.7-12.0 [facility] Comment on above: Performed By: #### C BC ####[facility] Rhiveadjdf36[address] [place], [place] [address]DrSkylar Leal NEUT # 3.1 103/ul Normal 1.4-6.5 [facility] Comment on above: Performed By: #### C BC ####[facility] Vsnwwwtozg17[address] [place], [place] [address]DrSkylar Leal Neutrophils/100 WBC (Bld) 45.2 % Normal 43.0-75.0 [facility] Comment on above: Performed By: #### C BC ####[facility] A[address]velf[address] [place] [address]Dr. Farhat Leal Platelet mean volume (Bld) [Entitic vol] 10.5 fL Normal 9.5-13.5 [facility] Comment on above: Performed By: #### C BC ####[facility] Yjsjqtxvpa64[address] [place] [address]Dr. Farhat Leal PLT 175 103/ul Normal 150-450 [facility] Comment on above: Performed By: #### C BC ####[facility] Sskarlfkuy18[address] [place], [place] [address]Dr. Farhat Leal RBC 3.79 106/ul Critically low 4.70-6.10 [facility] Comment on above: Performed By: #### C BC ####[facility] Prxlkbvore35[address] [place], [place] [address]Dr. Farhat Leal WBC 6.8 103/ul Normal 4.0-11.0 [facility] Comment on above: Performed By: #### C BC ####[facility] Nwfkcqdmxq[address] [place], [place] [address]Dr. Farhat Leal MAGNESIUMon 06-12-2022 Magnesium [Mass/Vol] 1.6 mg/dL Critically low 1.8-2.4 [facility] Comment on above: Performed By: #### C MP, MG, PHOS ####[facility] Ssmwvpaebq[address] [place], [place] [address]Dr. Farhat Leal PHOSPHORUSon 06-12-2022 Phosphate [Mass/Vol] 3.8 mg/dL Normal 2.6-4.7 [facility] Comment on above: Performed By: #### C MP, MG, PHOS ####[facility] Ivtievwgpx696[address] [place], [place] [address]Dr. Farhat Leal PROF 14(COMP METB)on 023 Albumin [Mass/Vol] 2.6 g/dL Critically low 3.4-5.0 [facility] Comment on above: Performed By: #### C MP, MG, PHOS ####[facility] Kecjblbgak[address] [place] [address]Dr. Farhat Elvis Albumin/Globulin [Mass ratio] 0.8 {ratio} Normal [facility] Comment on above: Performed By: #### C MP, MG, PHOS ####[facility] Olhpmnufpp[address] [place] [address]Dr. Farhat Elvis ALP [Catalytic activity/Vol] 64 U/L Normal 46-116 [facility] Comment on above: Performed By: #### C MP, MG, PHOS ####[facility] Afkanzmpze0145[address] [place], [place] [address]Dr. Farhat Elvis ALT [Catalytic activity/Vol] 18 U/L Normal 16-63 [facility] Comment on above: Performed By: #### C MP, MG, PHOS ####[facility] Cvxwnhfkbb2368[address] [place], [place] [address]Dr. Farhat Leal Anion gap [Moles/Vol] 12.9 mmol/L Normal [facility] Comment on above: Performed By: #### C MP, MG, PHOS ####[facility] Rapfjphfyj6397[address] [place], [place] [address]Dr. Madelynlorri Leal AST [Catalytic activity/Vol] 18 U/L Normal 15-37 [facility] Comment on above: Performed By: #### C MP, MG, PHOS ####[facility] Csxxhhtzgr119[address] [place], [place] [address]Dr. Farhat Leal Bilirubin [Mass/Vol] 0.4 mg/dL Normal 0.2-1.0 [facility] Comment on above: Performed By: #### C MP, MG, PHOS ####[facility] Aeakdvjdui80[address] [place], [place] [address]Dr. Farhat Leal Calcium [Mass/Vol] 8.7 mg/dL Normal 8.5-10.1 [facility] Comment on above: Performed By: #### C MP, MG, PHOS ####[facility] Bbbmweyjkm6524[address] [place], [place] [address]Dr. Farhat Leal Chloride [Moles/Vol] 105 mmol/L Normal 98-107 [facility] Comment on above: Performed By: #### C MP, MG, PHOS ####[facility] Pvotmeqnfu[address] [place] [address]Dr. Farhat Leal CO2 [Moles/Vol] 27.9 mmol/L Normal 21.0-32.0 [facility] Comment on above: Performed By: #### C MP, MG, PHOS ####[facility] Colwjsstbf5266[address] [place], [place] [address]Dr. Frahat Leal Creatinine [Mass/Vol] 1.53 mg/dL Critically high 0.70-1.30 [facility] Comment on above: Performed By: #### C MP, MG, PHOS ####[facility] Lstgltxwhj0[address] [place], [place] [address]Dr. Farhat Leal EGFR-AF GHANAIAN 54 mL/min/1.73m2 Critically low >=60 [facility] Comment on above: Performed By: #### C MP, MG, PHOS ####[facility] Ywofhjwact074[address] [place], [place] [address]Dr. Farhat Leal EGFR-NON AF GHANAIAN 44 mL/min/1.73m2 Critically low >=60 [facility] Comment on above: Performed By: #### C MP, MG, PHOS ####[facility] Swhpcdcamt45[address] [place], [place] [address]Dr. Farhat Leal Globulin (S) [Mass/Vol] 3.4 g/dL Normal [facility] Comment on above: Performed By: #### C MP, MG, PHOS ####[facility] K[address]fqkgygzb15[address] [place] [address]Dr. Farhat Leal Glucose [Mass/Vol] 179 mg/dL Critically high 74-106 [facility] Comment on above: Performed By: #### C MP, MG, PHOS ####[facility] Otwxmrsumz029[address] [place], [place] [address]Dr. Farhat Leal Potassium [Moles/Vol] 3.8 mmol/L Normal 3.5-5.1 [facility] Comment on above: Performed By: #### C MP, MG, PHOS ####[facility] Riviesnblk[address] [place] [address]Dr. Farhat Leal Protein [Mass/Vol] 6.0 g/dL Critically low 6.4-8.2 [facility] Comment on above: Performed By: #### C MP, MG, PHOS ####[facility] Tdv[address]ukbjti[address] [place] [address]Dr. Farhat Leal Sodium [Moles/Vol] 142 mmol/L Normal 136-145 [facility] Comment on above: Performed By: #### C MP, MG, PHOS ####[facility] Lexbblqlnm8[address] [place], [place] [address]Dr. Madelynlorri Leal Urea nitrogen [Mass/Vol] 56.0 mg/dL Critically high 7.0-18.0 [facility] Comment on above: Performed By: #### C MP, MG, PHOS ####[facility] Zqbyywaceq17[address] [place], [place] [address]Dr. Farhat Leal Urea nitrogen/Creatinine [Mass ratio] 36.6 mg/mg Normal [facility] Comment on above: Performed By: #### C MP, MG, PHOS ####[facility] Sccmltxtje5345[address] [place], [place] [address]Dr. Madelynlorri Leal FK506 (TACROLIMUS) WHOLE BLO ODon 06-08-2022 Tacrolimus (FK506), Blood 13.2 ng/mL Normal 2.0-20.0 [facility] Comment on above: Result Comment: Trou gh (immediately following transplant) 15.0 . Trough (steady state, 2 weeks or more after transplant): 3.0 - 8.0 . Performed by LC-MS/MS technology. Performed By: #### F K506T ####[facility] Hlnsscduke[address] [place], [place] [address]Dr. Farhat Leal CBC AUTO DIFFon 06-05-2022 BASO # 0.1 103/ul Normal 0.0-0.1 [facility] Comment on above: Performed By: #### C BC ####[facility] Xtddwkuztz[address] [place], [place] [address]Dr. Farhat Leal Basophils/100 WBC (Bld) 0.8 % Normal 0.2-2.0 [facility] Comment on above: Performed By: #### C BC ####[facility] Mxctdgjios7[address] [place], [place] [address]Dr. Farhat Leal EO # 0.3 103/ul Normal 0.0-0.7 [facility] Comment on above: Performed By: #### C BC ####[facility] Izlsqnkphl[address] [place], [place] [address]Dr. Farhat Leal Eosinophils/100 WBC (Bld) 4.7 % Normal 0.9-7.0 [facility] Comment on above: Performed By: #### C BC ####[facility] Jbhpgrerfu6466[address] [place], [place] [address]Dr. Farhat eLal Erythrocyte distribution width (RBC) [Ratio] 15.1 % Critically high 11.0-15.0 [facility] Comment on above: Performed By: #### C BC ####[facility] Yceevowutg20[address] [place], [place] [address]Dr. Farhat Leal Hematocrit (Bld) [Volume fraction] 35.5 % Critically low 42.0-54.0 [facility] Comment on above: Performed By: #### C BC ####[facility] Klcjmzjfcx[address] [place], [place] [address]Dr. Farhat Leal Hemoglobin (Bld) [Mass/Vol] 11.7 g/dL Critically low 14.0-18.0 [facility] Comment on above: Performed By: #### C BC ####[facility] Herohovozr[address] [place], [place] [address]Dr. Farhat Leal IG # 0.01 10e3/ul Normal 0.00-0.03 [facility] Comment on above: Performed By: #### C BC ####[facility] Dpbgpvadfi454[address] [place], [place] [address]Dr. Farhat Leal IG % 0.2 % Normal 0.0-0.5 [facility] Comment on above: Performed By: #### C BC ####[facility] [address]pv[address] [place] [id number]. Madelynlorri Leal LYMPH # 2.1 103/ul Normal 1.2-3.8 [facility] Comment on above: Performed By: #### C BC ####[facility] Exqsfanpnl28[address] [place] [phone]. Farhat Leal Lymphocytes/100 WBC (Bld) 34.5 % Normal 20.5-60.0 [facility] Comment on above: Performed By: #### C BC ####[facility] Ustuzvfztc6[address] [place] [address]Dr. Farhat Leal MANUAL DIFF REQ NO Normal [facility] Comment on above: Performed By: #### C BC ####[facility] Dcfpumygze0[address] [place] [address]Dr. Madelynlorri Leal MCH (RBC) [Entitic mass] 30.6 pg Normal 25.9-34.0 [facility] Comment on above: Performed By: #### C BC ####[facility] Hf[address]zgnxcik28[address] [place] [address]Dr. Madelynlorri Leal MCHC (RBC) [Mass/Vol] 33.0 g/dL Normal 29.9-35.2 [facility] Comment on above: Performed By: #### C BC ####[facility] Cbvkxecjfk2573 [place] [address]Dr. Farhat eLal MCV (RBC) [Entitic vol] 92.9 fL Normal 80.0-94.0 [facility] Comment on above: Performed By: #### C BC ####[facility] C[address]hkyejyw9163 [place] [address]Dr. Farhat Leal MONO # 0.7 103/ul Normal 0.3-0.8 [facility] Comment on above: Performed By: #### C BC ####[facility] Sjulyctbzz[address] [place], [place] [address]Dr. Farhat Leal Monocytes/100 WBC (Bld) 11.4 % Normal 1.7-12.0 [facility] Comment on above: Performed By: #### C BC ####[facility] Zpxabrvyus8[address] [place] [phone]. Farhat Leal NEUT # 2.9 103/ul Normal 1.4-6.5 [facility] Comment on above: Performed By: #### C BC ####[facility] Hxywgnlomc1630 [place] [address]Dr. Farhat Leal Neutrophils/100 WBC (Bld) 48.4 % Normal 43.0-75.0 [facility] Comment on above: Performed By: #### C BC ####[facility] Yceixuxrzd7725 [place] [address]Dr. Farhat Leal Platelet mean volume (Bld) [Entitic vol] 10.7 fL Normal 9.5-13.5 [facility] Comment on above: Performed By: #### C BC ####[facility] Em[address]zlllopt48[address] [place] [address]Dr. Farhat Leal PLT 185 103/ul Normal 150-450 [facility] Comment on above: Performed By: #### C BC ####[facility] Oeupqcfzdq8[address] [place], [place] [address]Dr. Farhat Leal RBC 3.82 106/ul Critically low 4.70-6.10 [facility] Comment on above: Performed By: #### C BC ####[facility] G[address]iazwctvf0668 [place] [address]Dr. Farhat Leal WBC 6.0 103/ul Normal 4.0-11.0 [facility] Comment on above: Performed By: #### C BC ####[facility] Jtlafrcyod[address] [place], [place] [address]Dr. Farhat Leal MAGNESIUMon 06-05-2022 Magnesium [Mass/Vol] 1.9 mg/dL Normal 1.8-2.4 [facility] Comment on above: Performed By: #### P HOS, MG ####[facility] Oluqpunxan[address] [place], [place] [address]Dr. Farhat Leal PHOSPHORUSon 06-05-2022 Phosphate [Mass/Vol] 4.4 mg/dL Normal 2.6-4.7 [facility] Comment on above: Performed By: #### P HOS, MG ####[facility] [address]wdxd[address] [place] [address]Dr. Farhat Leal PROTIMEon 06-05-2022 INR Coag (PPP) [Relative time] 2.16 {INR} Normal [facility] Comment on above: Performed By: #### P T ####[facility] Yrsbxyjrxe4[address] [place] [address]Dr. Farhat Leal INR GUIDELINES SEE BELOW Normal [facility] Comment on above: Result Comment: MALINA RED INR: 2.0 - 3.0 CONDITIONS NOT LISTED BELOW 2.5 - 3.5 FOR PROSTHETIC HEART VALVE REPLACEMENT 2.5 - 3.5 RECURRENT THROMBOSIS Performed By: #### P T ####[facility] Uxyzmietud9[address] [place], [place] [address]Dr. Farhat Leal PT Coag (PPP) [Time] 21.9 s Critically high 9.0-11.6 [facility] Comment on above: Performed By: #### P T ####[facility] Jyrwlwsgkw4447[address] [place], [place] [address]Dr. Farhat Leal FK506 (TACROLIMUS) WHOLE BLO ODon 06-01-2022 Tacrolimus (FK506), Blood 26.4 ng/mL Invalid Interpretation Code 2.0-20.0 [facility] Comment on above: Result Comment: Trou gh (immediately following transplant) 15.0 . Trough (steady state, 2 weeks or more after transplant): 3.0 - 8.0 . Performed by LC-MS/MS technology.Patient drug level exceeds published reference range. Evaluateclinically for signs of potential toxicity. Performed By: #### F K506T ####[facility] Adarxrxhcs[address] [place], [place] [address]Dr. Farhat Leal CBC AUTO DIFFon 05-29-2022 BASO # 0.0 103/ul Normal 0.0-0.1 [facility] Comment on above: Performed By: #### C BC ####[facility] C[address]fkvohqh17[address] [place], [place] [address]Dr. Farhat Leal Basophils/100 WBC (Bld) 0.6 % Normal 0.2-2.0 [facility] Comment on above: Performed By: #### C BC ####[facility] Lpqmpodlzz6456 [place] [address]Dr. Farhat Leal EO # 0.3 103/ul Normal 0.0-0.7 [facility] Comment on above: Performed By: #### C BC ####[facility] J[address]sqvkqb86[address] [place], [place] [address]Dr. Farhat Leal Eosinophils/100 WBC (Bld) 4.7 % Normal 0.9-7.0 [facility] Comment on above: Performed By: #### C BC ####[facility] T[address]bgcuxtd64[address] [place], [place] [address]Dr. Farhat Leal Erythrocyte distribution width (RBC) [Ratio] 15.3 % Critically high 11.0-15.0 [facility] Comment on above: Performed By: #### C BC ####[facility] Ktvaoolsak6[address] [place], [place] [address]Dr. Farhat Leal Hematocrit (Bld) [Volume fraction] 36.6 % Critically low 42.0-54.0 [facility] Comment on above: Performed By: #### C BC ####[facility] Xytirulbps2175[address] [place], [place] [address]Dr. Farhat Leal Hemoglobin (Bld) [Mass/Vol] 12.3 g/dL Critically low 14.0-18.0 [facility] Comment on above: Performed By: #### C BC ####[facility] Oudtlokrhf[address] [place], [place] [address]Dr. Farhat Leal IG # 0.02 10e3/ul Normal 0.00-0.03 [facility] Comment on above: Performed By: #### C BC ####[facility] Ankhupfaei66[address] [place], [place] [address]Dr. Farhat Leal IG % 0.3 % Normal 0.0-0.5 [facility] Comment on above: Performed By: #### C BC ####[facility] Syvsgbnrnw8[address] [place], [place] [address]Dr. Farhat Leal LYMPH # 2.8 103/ul Normal 1.2-3.8 [facility] Comment on above: Performed By: #### C BC ####[facility] Z[address]uglrfej95[address] [place] [phone]. Farhat Leal Lymphocytes/100 WBC (Bld) 44.4 % Normal 20.5-60.0 [facility] Comment on above: Performed By: #### C BC ####[facility] Ruyaifndbb9765 [place] [phone]. Farhat Leal MANUAL DIFF REQ NO Normal [facility] Comment on above: Performed By: #### C BC ####[facility] Dyqurfxqqk4455 [place] [phone]. Farhat Elvis MCH (RBC) [Entitic mass] 30.4 pg Normal 25.9-34.0 [facility] Comment on above: Performed By: #### C BC ####[facility] Diikjehlqs994[address] [place], [place] [address]Dr. Farhat Elvis MCHC (RBC) [Mass/Vol] 33.6 g/dL Normal 29.9-35.2 [facility] Comment on above: Performed By: #### C BC ####[facility] Yzjed[address]vu[address] [place], [place] [address]Dr. Farhat Elvis MCV (RBC) [Entitic vol] 90.4 fL Normal 80.0-94.0 [facility] Comment on above: Performed By: #### C BC ####[facility] Ntyvnhmask[address] [place], [place] [address]Dr. Madelynlorri Elvis MONO # 0.7 103/ul Normal 0.3-0.8 [facility] Comment on above: Performed By: #### C BC ####[facility] Jcqxvxbaci[address] [place], [place] [address]Dr. Madelynlorri Leal Monocytes/100 WBC (Bld) 10.7 % Normal 1.7-12.0 [facility] Comment on above: Performed By: #### C BC ####[facility] Eeqadkdlgt[address] [place], [place] [address]Dr. Farhat Leal NEUT # 2.5 103/ul Normal 1.4-6.5 [facility] Comment on above: Performed By: #### C BC ####[facility] Ccjxbjiitb0427 [place] [phone]. Farhat Leal Neutrophils/100 WBC (Bld) 39.3 % Critically low 43.0-75.0 [facility] Comment on above: Performed By: #### C BC ####[facility] Sjdhzjylth6603 [place] [phone]. Farhat Leal Platelet mean volume (Bld) [Entitic vol] 10.5 fL Normal 9.5-13.5 [facility] Comment on above: Performed By: #### C BC ####[facility] Ndsqmuvrxw0601 [place] [address]Dr. Farhat Leal PLT 190 103/ul Normal 150-450 [facility] Comment on above: Performed By: #### C BC ####[facility] Cmbspbbpev2075 [place] [address]Dr. Farhat Leal RBC 4.05 106/ul Critically low 4.70-6.10 [facility] Comment on above: Performed By: #### C BC ####[facility] Liubbohxuj8105 [place] [phone]. Farhat Leal WBC 6.4 103/ul Normal 4.0-11.0 [facility] Comment on above: Performed By: #### C BC ####[facility] Bosqpfwnuo25[address] [place] [address]Dr. Farhat Leal PROF 14(COMP METB)on 023 Albumin [Mass/Vol] 2.5 g/dL Critically low 3.4-5.0 [facility] Comment on above: Performed By: #### C MP ####[facility] Sytqasbhfp5856 [place] [address]Dr. Farhat Leal Albumin/Globulin [Mass ratio] 0.8 {ratio} Normal [facility] Comment on above: Performed By: #### C MP ####[facility] Wnhngnfzlo4580 [place] [address]Dr. Farhat Leal ALP [Catalytic activity/Vol] 61 U/L Normal 46-116 [facility] Comment on above: Performed By: #### C MP ####[facility] Miachakjil3331 [place] [phone]. Farhat Leal ALT [Catalytic activity/Vol] 16 U/L Normal 16-63 [facility] Comment on above: Performed By: #### C MP ####[facility] Dawqvvkbqe9496 [place] [phone]. Farhat Leal Anion gap [Moles/Vol] 12.3 mmol/L Normal [facility] Comment on above: Performed By: #### C MP ####[facility] Qbwoiswoqh0332 [place] [phone]. Farhat Leal AST [Catalytic activity/Vol] 18 U/L Normal 15-37 [facility] Comment on above: Performed By: #### C MP ####[facility] Unaqvceytl[address] [place], [place] [address]Dr. Farhat Leal Bilirubin [Mass/Vol] 0.5 mg/dL Normal 0.2-1.0 [facility] Comment on above: Performed By: #### C MP ####[facility] Xujkssauix3395 [place] [address]Dr. Farhat Leal Calcium [Mass/Vol] 8.6 mg/dL Normal 8.5-10.1 [facility] Comment on above: Performed By: #### C MP ####[facility] [address]jgvhjaf7[address] [place], [place] [address]Dr. Farhat Leal Chloride [Moles/Vol] 105 mmol/L Normal 98-107 [facility] Comment on above: Performed By: #### C MP ####[facility] Fdhloochmz9933 [place] [phone]. Farhat Leal CO2 [Moles/Vol] 28.6 mmol/L Normal 21.0-32.0 [facility] Comment on above: Performed By: #### C MP ####[facility] [address]psfknxwq[address] [place], [place] [address]Dr. Farhat Elvis Creatinine [Mass/Vol] 1.47 mg/dL Critically high 0.70-1.30 [facility] Comment on above: Performed By: #### C MP ####[facility] Bcbqbxmxir6284 [place] [phone]. Farhat Leal EGFR-AF GHANAIAN 56 mL/min/1.73m2 Critically low >=60 [facility] Comment on above: Performed By: #### C MP ####[facility] Wliykjbgux5055 [place] [phone]. Farhat Leal EGFR-NON AF GHANAIAN 46 mL/min/1.73m2 Critically low >=60 [facility] Comment on above: Performed By: #### C MP ####[facility] Eavkckxqka1934 [place] [address]Dr. Farhat Elvis Globulin (S) [Mass/Vol] 3.3 g/dL Normal [facility] Comment on above: Performed By: #### C MP ####[facility] Qytsvswxwp0133 [place] [address]Dr. Farhat Leal Glucose [Mass/Vol] 164 mg/dL Critically high 74-106 [facility] Comment on above: Performed By: #### C MP ####[facility] Wenuaaerdx7362 [place] [address]Dr. Farhat Leal Potassium [Moles/Vol] 3.9 mmol/L Normal 3.5-5.1 [facility] Comment on above: Performed By: #### C MP ####[facility] Xfdswaykru7243 [place] [address]Dr. Farhat Leal Protein [Mass/Vol] 5.8 g/dL Critically low 6.4-8.2 [facility] Comment on above: Performed By: #### C MP ####[facility] Ozngcjaxhb3806 [place] [address]Dr. Farhat Leal Sodium [Moles/Vol] 142 mmol/L Normal 136-145 [facility] Comment on above: Performed By: #### C MP ####[facility] Fimmmoxybq9259 [place] [phone]. Farhat Elvis Urea nitrogen [Mass/Vol] 53.0 mg/dL Critically high 7.0-18.0 [facility] Comment on above: Performed By: #### C MP ####[facility] Aimviwtcij9692 [place] [address]Dr. Farhat Leal Urea nitrogen/Creatinine [Mass ratio] 36.1 mg/mg Normal [facility] Comment on above: Performed By: #### C MP ####[facility] Ndckfjuglw0873 [place] [address]Dr. Farhat Leal PROTIMEon 05-29-2022 INR Coag (PPP) [Relative time] 2.41 {INR} Normal [facility] Comment on above: Performed By: #### P T ####[facility] [address]brduhujt[address] [place], [place] [address]Dr. Farhat Leal INR GUIDELINES SEE BELOW Normal [facility] Comment on above: Result Comment: MALINA RED INR: 2.0 - 3.0 CONDITIONS NOT LISTED BELOW 2.5 - 3.5 FOR PROSTHETIC HEART VALVE REPLACEMENT 2.5 - 3.5 RECURRENT THROMBOSIS Performed By: #### P T ####[facility] Uhsyewqojd[address] [place], [place] [address]Dr. Farhat Leal PT Coag (PPP) [Time] 24.3 s Critically high 9.0-11.6 [facility] Comment on above: Performed By: #### P T ####[facility] Myhlmemhtu02[address] [place], [place] [address]Dr. Farhat Leal FK506 (TACROLIMUS) WHOLE BLO ODon 05-25-2022 Tacrolimus (FK506), Blood 5.1 ng/mL Normal 2.0-20.0 [facility] Comment on above: Result Comment: Trou gh (immediately following transplant) 15.0 . Trough (steady state, 2 weeks or more after transplant): 3.0 - 8.0 . Performed by LC-MS/MS technology. Performed By: #### F K506T ####[facility] Dlqlawgght14[address] [place], [place] [address]Dr. Farhat Leal CBC AUTO DIFFon 05-22-2022 BASO # 0.0 103/ul Normal 0.0-0.1 [facility] Comment on above: Performed By: #### C BC ####[facility] [address] [place] [address]Dr. Farhat Leal Basophils/100 WBC (Bld) 0.5 % Normal 0.2-2.0 [facility] Comment on above: Performed By: #### C BC ####[facility] Bzmqltkbuq[address] [place] [address]Dr. Farhat Leal EO # 0.2 103/ul Normal 0.0-0.7 [facility] Comment on above: Performed By: #### C BC ####[facility] Evpatyiugc6[address] [place], [place] [address]Dr. Farhat Leal Eosinophils/100 WBC (Bld) 4.0 % Normal 0.9-7.0 [facility] Comment on above: Performed By: #### C BC ####[facility] Wrmpjummzt16[address] [place], [place] [address]Dr. Farhat Leal Erythrocyte distribution width (RBC) [Ratio] 15.5 % Critically high 11.0-15.0 [facility] Comment on above: Performed By: #### C BC ####[facility] Tbhcoqhrgx[address] [place], [place] [address]Dr. Farhat Leal Hematocrit (Bld) [Volume fraction] 34.1 % Critically low 42.0-54.0 [facility] Comment on above: Performed By: #### C BC ####[facility] Wipjulodkc[address] [place], [place] [address]Dr. Farhat Leal Hemoglobin (Bld) [Mass/Vol] 11.3 g/dL Critically low 14.0-18.0 [facility] Comment on above: Performed By: #### C BC ####[facility] Pbaeibwhcx[address] [place], [place] [address]Dr. Farhat Leal IG # 0.03 10e3/ul Normal 0.00-0.03 [facility] Comment on above: Performed By: #### C BC ####[facility] Eoebkoubbz9[address] [place], [place] [address]Dr. Farhat Leal IG % 0.5 % Normal 0.0-0.5 [facility] Comment on above: Performed By: #### C BC ####[facility] Cyxyutzqii6057 [place] [phone]. Farhat Leal LYMPH # 2.1 103/ul Normal 1.2-3.8 [facility] Comment on above: Performed By: #### C BC ####[facility] Imxcvrapnk5503 [place] [phone]. Farhat Leal Lymphocytes/100 WBC (Bld) 34.6 % Normal 20.5-60.0 [facility] Comment on above: Performed By: #### C BC ####[facility] Jxddmwizwv6401 [place] [phone]. Farhat Elvis MANUAL DIFF REQ NO Normal [facility] Comment on above: Performed By: #### C BC ####[facility] Hgjltjnkus9454 [place] [phone]. Farhat Elvis MCH (RBC) [Entitic mass] 30.3 pg Normal 25.9-34.0 [facility] Comment on above: Performed By: #### C BC ####[facility] Ybdprdtpec5180 [place] [phone]. Farhat Leal MCHC (RBC) [Mass/Vol] 33.1 g/dL Normal 29.9-35.2 [facility] Comment on above: Performed By: #### C BC ####[facility] Wdkgztmtpx2226 [place] [phone]. Farhat Leal MCV (RBC) [Entitic vol] 91.4 fL Normal 80.0-94.0 [facility] Comment on above: Performed By: #### C BC ####[facility] Wihrcptgpz6311 [place] [phone]. Farhat Elvis MONO # 0.7 103/ul Normal 0.3-0.8 [facility] Comment on above: Performed By: #### C BC ####[facility] Jwlvtfuaje9743 [place] [phone]. Farhat Elvis Monocytes/100 WBC (Bld) 11.6 % Normal 1.7-12.0 [facility] Comment on above: Performed By: #### C BC ####[facility] Avjfoicnmq3836 [place] [phone]. Farhat Leal NEUT # 2.9 103/ul Normal 1.4-6.5 [facility] Comment on above: Performed By: #### C BC ####[facility] Xfkeaspiik6955 [place] [phone]. Farhat Leal Neutrophils/100 WBC (Bld) 48.8 % Normal 43.0-75.0 [facility] Comment on above: Performed By: #### C BC ####[facility] Cdaksciaer6653 [place] [phone]. Farhat Leal Platelet mean volume (Bld) [Entitic vol] 10.9 fL Normal 9.5-13.5 [facility] Comment on above: Performed By: #### C BC ####[facility] Ungmppolrl4880 [place] [phone]. Farhat Elvis PLT 186 103/ul Normal 150-450 [facility] Comment on above: Performed By: #### C BC ####[facility] Kwbspqgwhz8831 [place] [phone]. Farhat Elvis RBC 3.73 106/ul Critically low 4.70-6.10 [facility] Comment on above: Performed By: #### C BC ####[facility] Bdvexormil5321 [place] [phone]. Farhat Leal WBC 6.0 103/ul Normal 4.0-11.0 [facility] Comment on above: Performed By: #### C BC ####[facility] Dbsszjlslf0568 [place] [phone]. Farhat Leal PROF 14(COMP METB)on 023 Albumin [Mass/Vol] 2.7 g/dL Critically low 3.4-5.0 [facility] Comment on above: Performed By: #### C MP ####[facility] Wmuoycxfsw1687 [place] [phone]. Mdaelynlorri Elvis Albumin/Globulin [Mass ratio] 0.8 {ratio} Normal [facility] Comment on above: Performed By: #### C MP ####[facility] Xbepukdzxe4675 [place] [phone]. Farhat Leal ALP [Catalytic activity/Vol] 60 U/L Normal 46-116 [facility] Comment on above: Performed By: #### C MP ####[facility] Ucnpzxekay9374 [place] [address]Dr. Farhat Leal ALT [Catalytic activity/Vol] 17 U/L Normal 16-63 [facility] Comment on above: Performed By: #### C MP ####[facility] Kqqounjiqy50[address] [place], [place] [address]Dr. Farhat Leal Anion gap [Moles/Vol] 9.6 mmol/L Normal [facility] Comment on above: Performed By: #### C MP ####[facility] Xkgmmsovbw247[address] [place], [place] [address]Dr. Farhat Leal AST [Catalytic activity/Vol] 14 U/L Critically low 15-37 [facility] Comment on above: Performed By: #### C MP ####[facility] Cbbmtppkvu8128[address] [place], [place] [address]Dr. Farhat Leal Bilirubin [Mass/Vol] 0.5 mg/dL Normal 0.2-1.0 [facility] Comment on above: Performed By: #### C MP ####[facility] Zrbljfyrwd05[address] [place], [place] [address]Dr. Farhat Leal Calcium [Mass/Vol] 8.4 mg/dL Critically low 8.5-10.1 [facility] Comment on above: Performed By: #### C MP ####[facility] Hlkfbdvrpn1560 [place] [address]Dr. Farhat Leal Chloride [Moles/Vol] 104 mmol/L Normal 98-107 [facility] Comment on above: Performed By: #### C MP ####[facility] Igzkddltee829[address] [place], [place] [address]Dr. Farhat Leal CO2 [Moles/Vol] 27.2 mmol/L Normal 21.0-32.0 [facility] Comment on above: Performed By: #### C MP ####[facility] Vmldxqrtgp6056 [place] [address]Dr. Farhat Leal Creatinine [Mass/Vol] 1.24 mg/dL Normal 0.70-1.30 [facility] Comment on above: Performed By: #### C MP ####[facility] Cfsxfuzwid5079 [place] [address]Dr. Madelynlorri Elvis EGFR-AF GHANAIAN >60 Normal >=60 [facility] Comment on above: Performed By: #### C MP ####[facility] Eawpljpuyg4343 [place] [address]Dr. Farhat Leal EGFR-NON AF GHANAIAN 57 mL/min/1.73m2 Critically low >=60 [facility] Comment on above: Performed By: #### C MP ####[facility] Ynqzrvkuum94[address] [place], [place] [address]Dr. Farhat Leal Globulin (S) [Mass/Vol] 3.3 g/dL Normal [facility] Comment on above: Performed By: #### C MP ####[facility] Xnbyxisggd3419[address] [place], [place] [address]Dr. Farhat Leal Glucose [Mass/Vol] 275 mg/dL Critically high 74-106 [facility] Comment on above: Performed By: #### C MP ####[facility] Wkpfmtgrio[address] [place], [place] [address]Dr. Farhat Leal Potassium [Moles/Vol] 3.8 mmol/L Normal 3.5-5.1 [facility] Comment on above: Performed By: #### C MP ####[facility] Dghejuixqc[address] [place], [place] [address]Dr. Farhat Leal Protein [Mass/Vol] 6.0 g/dL Critically low 6.4-8.2 [facility] Comment on above: Performed By: #### C MP ####[facility] D[address]vyjzkvzm79[address] [place], [place] [address]Dr. Farhat Leal Sodium [Moles/Vol] 137 mmol/L Normal 136-145 [facility] Comment on above: Performed By: #### C MP ####[facility] Qvdbgwajxd[address] [place], [place] [address]Dr. Farhat Leal Urea nitrogen [Mass/Vol] 54.0 mg/dL Critically high 7.0-18.0 [facility] Comment on above: Performed By: #### C MP ####[facility] Ltbxevpuhw4644 [place] [address]Dr. Farhat Leal Urea nitrogen/Creatinine [Mass ratio] 43.5 mg/mg Normal [facility] Comment on above: Performed By: #### C MP ####[facility] Tvmnpmqbxh[address] [place], [place] [address]Dr. Farhat Leal PROTIMEon 05-22-2022 INR Coag (PPP) [Relative time] 2.27 {INR} Normal [facility] Comment on above: Performed By: #### P T ####[facility] Bboohixflk16[address] [place], [place] [address]DrSkylar Leal INR GUIDELINES SEE BELOW Normal [facility] Comment on above: Result Comment: MALINA RED INR: 2.0 - 3.0 CONDITIONS NOT LISTED BELOW 2.5 - 3.5 FOR PROSTHETIC HEART VALVE REPLACEMENT 2.5 - 3.5 RECURRENT THROMBOSIS Performed By: #### P T ####[facility] Enfovtlayq[address] [place] [address]. Farhat Leal PT Coag (PPP) [Time] 23.0 s Critically high 9.0-11.6 [facility] Comment on above: Performed By: #### P T ####[facility] Ajowj[address] [place] [address]. Farhat Leal FK506 (TACROLIMUS) WHOLE BLO ODon 05-19-2022 Tacrolimus (FK506), Blood 7.8 ng/mL Normal 2.0-20.0 [facility] Comment on above: Result Comment: Trou gh (immediately following transplant) 15.0 . Trough (steady state, 2 weeks or more after transplant): 3.0 - 8.0 . Performed by LC-MS/MS technology. Performed By: #### F K506T ####[facility] Ouhfjifvlh[address] [place], [place] [address]DrSkylar Leal CBC AUTO DIFFon 05-15-2022 BASO # 0.0 103/ul Normal 0.0-0.1 [facility] Comment on above: Performed By: #### C BC ####[facility] Kvimtirart32[address] [place], [place] [address]Dr. Farhat Leal Basophils/100 WBC (Bld) 0.4 % Normal 0.2-2.0 [facility] Comment on above: Performed By: #### C BC ####[facility] Cysnfsepzl8[address] [place], [place] [address]Dr. Farhat Lela EO # 0.2 103/ul Normal 0.0-0.7 [facility] Comment on above: Performed By: #### C BC ####[facility] Cyoyytnjtm4[address] [place], [place] [address]Dr. Farhat Leal Eosinophils/100 WBC (Bld) 3.0 % Normal 0.9-7.0 [facility] Comment on above: Performed By: #### C BC ####[facility] Rxxtgsxmrz1327[address] [place], [place] [address]Dr. Farhat Leal Erythrocyte distribution width (RBC) [Ratio] 15.7 % Critically high 11.0-15.0 [facility] Comment on above: Performed By: #### C BC ####[facility] Fsrruzfmmi[address] [place], [place] [address]Dr. Farhat Leal Hematocrit (Bld) [Volume fraction] 36.8 % Critically low 42.0-54.0 [facility] Comment on above: Performed By: #### C BC ####[facility] Mzvkabnmfq13[address] [place], [place] [address]Dr. Farhat Leal Hemoglobin (Bld) [Mass/Vol] 12.4 g/dL Critically low 14.0-18.0 [facility] Comment on above: Performed By: #### C BC ####[facility] Wibbgzzceh6[address] [place], [place] [address]Dr. Farhat Leal IG # 0.01 10e3/ul Normal 0.00-0.03 [facility] Comment on above: Performed By: #### C BC ####[facility] Phgvqjdbvt07[address] [place], [place] [address]DrSkylar Leal IG % 0.1 % Normal 0.0-0.5 [facility] Comment on above: Performed By: #### C BC ####[facility] Uotmtowarg0592 [place] [address]DrSkylar Madelynlorri Leal LYMPH # 2.4 103/ul Normal 1.2-3.8 [facility] Comment on above: Performed By: #### C BC ####[facility] Hykzuvnpbz3514 [place] [address]DrSkylar Leal Lymphocytes/100 WBC (Bld) 35.6 % Normal 20.5-60.0 [facility] Comment on above: Performed By: #### C BC ####[facility] Zddhfurbef24[address] [place], [place] [address]DrSkylar Leal MANUAL DIFF REQ NO Normal [facility] Comment on above: Performed By: #### C BC ####[facility] Hcszeanvkp[address] [place], [place] [address]DrSkylar Leal MCH (RBC) [Entitic mass] 30.1 pg Normal 25.9-34.0 [facility] Comment on above: Performed By: #### C BC ####[facility] Ixlcshoaaa57[address] [place], [place] [address]Dr. Farhat Elvis MCHC (RBC) [Mass/Vol] 33.7 g/dL Normal 29.9-35.2 [facility] Comment on above: Performed By: #### C BC ####[facility] Gmenxdainf30[address] [place], [place] [address]DrSkylar Leal MCV (RBC) [Entitic vol] 89.3 fL Normal 80.0-94.0 [facility] Comment on above: Performed By: #### C BC ####[facility] T[address]xhgiarf[address] [place], [place] [address]DrSkylar Leal MONO # 0.7 103/ul Normal 0.3-0.8 [facility] Comment on above: Performed By: #### C BC ####[facility] Scfkgfjtwf[address] [place], [place] [address]DrSkylar Leal Monocytes/100 WBC (Bld) 10.8 % Normal 1.7-12.0 [facility] Comment on above: Performed By: #### C BC ####[facility] Mmlwliutar0197 [place] [address]Dr. Farhat Leal NEUT # 3.4 103/ul Normal 1.4-6.5 [facility] Comment on above: Performed By: #### C BC ####[facility] Adplddfetr9831 [place] [address]DrSkylar Leal Neutrophils/100 WBC (Bld) 50.1 % Normal 43.0-75.0 [facility] Comment on above: Performed By: #### C BC ####[facility] Aujgtwifcs3516 [place] [address]Dr. Farhat Leal Platelet mean volume (Bld) [Entitic vol] 10.2 fL Normal 9.5-13.5 [facility] Comment on above: Performed By: #### C BC ####[facility] Mivuoksfmj[address] [place], [place] [address]Dr. Farhat Leal PLT 190 103/ul Normal 150-450 [facility] Comment on above: Performed By: #### C BC ####[facility] Chqjcrbxdi50[address] [place], [place] [address]Dr. Farhat Leal RBC 4.12 106/ul Critically low 4.70-6.10 [facility] Comment on above: Performed By: #### C BC ####[facility] Fqnpiqwdhv24[address] [place], [place] [address]Dr. Farhat Leal WBC 6.8 103/ul Normal 4.0-11.0 [facility] Comment on above: Performed By: #### C BC ####[facility] Lyyftgqrei2864 [place] [address]DrSkylar Leal PROF 14(COMP METB)on 023 Albumin [Mass/Vol] 2.8 g/dL Critically low 3.4-5.0 Th [facility] Comment on above: Performed By: #### C MP ####[facility] Ridmqzjfvb4[address] [place], [place] [address]DrSkylar Leal Albumin/Globulin [Mass ratio] 0.9 {ratio} Normal [facility] Comment on above: Performed By: #### C MP ####[facility] Ygbjfyvcoh7094 [place] [address]Dr. Farhat Elvis ALP [Catalytic activity/Vol] 66 U/L Normal 46-116 [facility] Comment on above: Performed By: #### C MP ####[facility] Eqzlihkcba7824 [place] [address]Dr. Madelynlorri Leal ALT [Catalytic activity/Vol] 15 U/L Critically low 16-63 [facility] Comment on above: Performed By: #### C MP ####[facility] Eyeylioddx1043[address] [place], [place] [address]Dr. Farhat Leal Anion gap [Moles/Vol] 11.1 mmol/L Normal [facility] Comment on above: Performed By: #### C MP ####[facility] Gdpacwlljf8337[address] [place], [place] [address]Dr. Farhat Leal AST [Catalytic activity/Vol] 14 U/L Critically low 15-37 [facility] Comment on above: Performed By: #### C MP ####[facility] Adabugyzhf940[address] [place], [place] [address]Dr. Farhat Leal Bilirubin [Mass/Vol] 0.8 mg/dL Normal 0.2-1.0 [facility] Comment on above: Performed By: #### C MP ####[facility] Mwcfdvoqth9[address] [place], [place] [address]Dr. Farhat Leal Calcium [Mass/Vol] 8.9 mg/dL Normal 8.5-10.1 [facility] Comment on above: Performed By: #### C MP ####[facility] Dpcnsasoqy809[address] [place], [place] [address]Dr. Farhat Leal Chloride [Moles/Vol] 101 mmol/L Normal 98-107 [facility] Comment on above: Performed By: #### C MP ####[facility] Nkgamjogfq1519[address] [place], [place] [address]Dr. Farhat Leal CO2 [Moles/Vol] 28.2 mmol/L Normal 21.0-32.0 [facility] Comment on above: Performed By: #### C MP ####[facility] Kwxcgmsqld7563 [place] [phone]. Farhat Leal Creatinine [Mass/Vol] 1.23 mg/dL Normal 0.70-1.30 [facility] Comment on above: Performed By: #### C MP ####[facility] Fkagelfine7725 [place] [phone]. Farhat Elvis EGFR-AF GHANAIAN >60 Normal >=60 [facility] Comment on above: Performed By: #### C MP ####[facility] Kurioranak9496 [place] [phone]. Farhat Elvis EGFR-NON AF GHANAIAN 57 mL/min/1.73m2 Critically low >=60 [facility] Comment on above: Performed By: #### C MP ####[facility] Wuqoehachr9775 [place] [phone]. Farhat Elvis Globulin (S) [Mass/Vol] 3.2 g/dL Normal [facility] Comment on above: Performed By: #### C MP ####[facility] Eqvqmumado9433 [place] [phone]. Farhat Elvis Glucose [Mass/Vol] 333 mg/dL Critically high 74-106 [facility] Comment on above: Performed By: #### C MP ####[facility] Nolxwgwxqs5187 [place] [phone]. Farhat Elvis Potassium [Moles/Vol] 4.3 mmol/L Normal 3.5-5.1 [facility] Comment on above: Performed By: #### C MP ####[facility] Xfqptczivd6221 [place] [phone]. Farhat Elvis Protein [Mass/Vol] 6.0 g/dL Critically low 6.4-8.2 Th [facility] Comment on above: Performed By: #### C MP ####[facility] Akbbbahkrq6656 [place] [phone]. Farhat Elvis Sodium [Moles/Vol] 136 mmol/L Normal 136-145 [facility] Comment on above: Performed By: #### C MP ####[facility] Kawbfwobsu8920 [place] [address]Dr. Farhat Leal Urea nitrogen [Mass/Vol] 58.0 mg/dL Critically high 7.0-18.0 [facility] Comment on above: Performed By: #### C MP ####[facility] Hkvovttrxq6[address] [place], [place] [address]Dr. Farhat Leal Urea nitrogen/Creatinine [Mass ratio] 47.2 mg/mg Normal [facility] Comment on above: Performed By: #### C MP ####[facility] Coqyteuemd6[address] [place], [place] [address]Dr. Farhat Leal PROTIMEon 05-13-2022 INR Coag (PPP) [Relative time] 3.51 {INR} Normal [facility] Comment on above: Performed By: #### P T ####[facility] Plnzmityif87[address] [place], [place] [address]Dr. Farhat Leal INR GUIDELINES SEE BELOW Normal [facility] Comment on above: Result Comment: MALINA RED INR: 2.0 - 3.0 CONDITIONS NOT LISTED BELOW 2.5 - 3.5 FOR PROSTHETIC HEART VALVE REPLACEMENT 2.5 - 3.5 RECURRENT THROMBOSIS Performed By: #### P T ####[facility] Fktdxjdgej[address] [place], [place] [address]Dr. Farhat Leal PT Coag (PPP) [Time] 34.7 s Critically high 9.0-11.6 [facility] Comment on above: Performed By: #### P T ####[facility] Vdzootzbfy096[address] [place], [place] [address]Dr. Farhat Leal FK506 (TACROLIMUS) WHOLE BLO ODon 05-11-2022 Tacrolimus (FK506), Blood 14.4 ng/mL Normal 2.0-20.0 [facility] Comment on above: Result Comment: Trou gh (immediately following transplant) 15.0 . Trough (steady state, 2 weeks or more after transplant): 3.0 - 8.0 . Performed by LC-MS/MS technology. Performed By: #### F K506T ####[facility] Qkgzhpuuwb5278 [place] [address]Dr. Farhat Leal CBC AUTO DIFFon 05-08-2022 BASO # 0.0 103/ul Normal 0.0-0.1 [facility] Comment on above: Performed By: #### C BC ####[facility] Onmoqzgbsf2[address] [place], [place] [address]Dr. Farhat Elvis Basophils/100 WBC (Bld) 0.5 % Normal 0.2-2.0 [facility] Comment on above: Performed By: #### C BC ####[facility] Jjdoxsnuhl3839[address] [place], [place] [address]Dr. Farhat Leal EO # 0.2 103/ul Normal 0.0-0.7 [facility] Comment on above: Performed By: #### C BC ####[facility] Zqdrqqyifx89[address] [place], [place] [address]Dr. Madelynlorri Leal Eosinophils/100 WBC (Bld) 2.9 % Normal 0.9-7.0 [facility] Comment on above: Performed By: #### C BC ####[facility] Gulxppmpqo8859[address] [place], [place] [address]Dr. Farhat Leal Erythrocyte distribution width (RBC) [Ratio] 16.0 % Critically high 11.0-15.0 [facility] Comment on above: Performed By: #### C BC ####[facility] Qfdzqxavnf54[address] [place], [place] [address]Dr. Farhat Leal Hematocrit (Bld) [Volume fraction] 35.7 % Critically low 42.0-54.0 [facility] Comment on above: Performed By: #### C BC ####[facility] Bdleudhyvt[address] [place], [place] [address]Dr. Farhat Leal Hemoglobin (Bld) [Mass/Vol] 11.9 g/dL Critically low 14.0-18.0 [facility] Comment on above: Performed By: #### C BC ####[facility] Zzqrrhfvjn[address] [place], [place] [address]Dr. Farhat Leal IG # 0.03 10e3/ul Normal 0.00-0.03 [facility] Comment on above: Performed By: #### C BC ####[facility] Ubckiodwio9766 [place] [phone]. Madelynlorri Leal IG % 0.5 % Normal 0.0-0.5 [facility] Comment on above: Performed By: #### C BC ####[facility] Tjvwahcusg2420 [place] [phone]. Farhat Elvis LYMPH # 2.4 103/ul Normal 1.2-3.8 [facility] Comment on above: Performed By: #### C BC ####[facility] Uyplpdszux8235 [place] [phone]. Madelynlorri Leal Lymphocytes/100 WBC (Bld) 37.8 % Normal 20.5-60.0 [facility] Comment on above: Performed By: #### C BC ####[facility] Efehbhgqas3821 [place] [address]Dr. Farhat Leal MANUAL DIFF REQ NO Normal [facility] Comment on above: Performed By: #### C BC ####[facility] Xskheozjaj6191 [place] [phone]. Farhat Leal MCH (RBC) [Entitic mass] 30.4 pg Normal 25.9-34.0 [facility] Comment on above: Performed By: #### C BC ####[facility] Rvoqlbpagx7188 [place] [phone]. Farhat Leal MCHC (RBC) [Mass/Vol] 33.3 g/dL Normal 29.9-35.2 [facility] Comment on above: Performed By: #### C BC ####[facility] Pdieeoxsxx8359 [place] [phone]. Farhat Leal MCV (RBC) [Entitic vol] 91.1 fL Normal 80.0-94.0 [facility] Comment on above: Performed By: #### C BC ####[facility] Holqdscupj8986 [place] [phone]. Farhat Leal MONO # 0.7 103/ul Normal 0.3-0.8 [facility] Comment on above: Performed By: #### C BC ####[facility] [address]un[address] [place] [id number]. Farhat Leal Monocytes/100 WBC (Bld) 11.1 % Normal 1.7-12.0 [facility] Comment on above: Performed By: #### C BC ####[facility] Wdkjyazwmz29[address] [place] [phone]. Farhat Leal NEUT # 2.9 103/ul Normal 1.4-6.5 [facility] Comment on above: Performed By: #### C BC ####[facility] Gqfkamjlen5[address] [place] [phone]. Farhat Leal Neutrophils/100 WBC (Bld) 47.2 % Normal 43.0-75.0 [facility] Comment on above: Performed By: #### C BC ####[facility] Odqgtjfiml[address] [place] [address]Dr. Farhat Leal Platelet mean volume (Bld) [Entitic vol] 11.0 fL Normal 9.5-13.5 [facility] Comment on above: Performed By: #### C BC ####[facility] Dtnjyybbwd5920 [place] [phone]. Farhat Leal PLT 191 103/ul Normal 150-450 [facility] Comment on above: Performed By: #### C BC ####[facility] Ligverzwqu2915 [place] [phone]. Farhat Leal RBC 3.92 106/ul Critically low 4.70-6.10 [facility] Comment on above: Performed By: #### C BC ####[facility] Lkpjnaxbvl[address] [place], [place] [id number]. Farhat Leal WBC 6.2 103/ul Normal 4.0-11.0 [facility] Comment on above: Performed By: #### C BC ####[facility] Eeevofyfly[address] [place] [address]Dr. Farhat Leal MAGNESIUMon 05-08-2022 Magnesium [Mass/Vol] 1.9 mg/dL Normal 1.8-2.4 [facility] Comment on above: Performed By: #### P HOS, MG ####[facility] Djxuownirm53[address] [place] [address]Dr. Farhat Leal PHOSPHORUSon 05-08-2022 Phosphate [Mass/Vol] 4.5 mg/dL Normal 2.6-4.7 [facility] Comment on above: Performed By: #### P HOS, MG ####[facility] Yukxfbtmbv11[address] [place] [address]Dr. Farhat Leal PROF 14(COMP METB)on 023 Albumin [Mass/Vol] 2.9 g/dL Critically low 3.4-5.0 [facility] Comment on above: Performed By: #### C MP ####[facility] [address]unqk[address]oa[address] [place], [place] [address]Dr. Farhat Leal Albumin/Globulin [Mass ratio] 0.9 {ratio} Normal [facility] Comment on above: Performed By: #### C MP ####[facility] Ovttynujcp[address] [place], [place] [address]Dr. Farhat Leal ALP [Catalytic activity/Vol] 70 U/L Normal 46-116 [facility] Comment on above: Performed By: #### C MP ####[facility] Beenatznoo[address] [place], [place] [address]Dr. Farhat Leal ALT [Catalytic activity/Vol] 13 U/L Critically low 16-63 [facility] Comment on above: Performed By: #### C MP ####[facility] Jdpkzwumcx023[address] [place] [address]Dr. Farhat Leal Anion gap [Moles/Vol] 14.6 mmol/L Normal [facility] Comment on above: Performed By: #### C MP ####[facility] Tdntxmcdwb6528 [place] [address]Dr. Farhat Leal AST [Catalytic activity/Vol] 17 U/L Normal 15-37 [facility] Comment on above: Performed By: #### C MP ####[facility] Zsbcmzrlye8476 [place] [address]Dr. Farhat Leal Bilirubin [Mass/Vol] 0.8 mg/dL Normal 0.2-1.0 [facility] Comment on above: Performed By: #### C MP ####[facility] Ecyumlgbti9680 [place] [address]Dr. Farhat Leal Calcium [Mass/Vol] 8.9 mg/dL Normal 8.5-10.1 [facility] Comment on above: Performed By: #### C MP ####[facility] Tyeujhmqwo[address] [place] [address]Dr. Farhat Leal Chloride [Moles/Vol] 102 mmol/L Normal 98-107 [facility] Comment on above: Performed By: #### C MP ####[facility] Unnkmuzjrh2322 [place] [address]Dr. Farhat Leal CO2 [Moles/Vol] 22.9 mmol/L Normal 21.0-32.0 [facility] Comment on above: Performed By: #### C MP ####[facility] Lxmxclrmqt4[address] [place] [address]Dr. Farhat Leal Creatinine [Mass/Vol] 1.20 mg/dL Normal 0.70-1.30 [facility] Comment on above: Performed By: #### C MP ####[facility] Vlvwrfsffa88[address] [place] [address]Dr. Farhat Leal EGFR-AF GHANAIAN >60 Normal >=60 [facility] Comment on above: Performed By: #### C MP ####[facility] Hdxuqevpwf52[address] [place] [address]Dr. Farhat Elvis EGFR-NON AF GHANAIAN 59 mL/min/1.73m2 Critically low >=60 [facility] Comment on above: Performed By: #### C MP ####[facility] Xowefmriop5806 [place] [phone]. Farhat Elvis Globulin (S) [Mass/Vol] 3.1 g/dL Normal [facility] Comment on above: Performed By: #### C MP ####[facility] Oxhozjyzdu1037 [place] [address]Dr. Madelynlorri Elvis Glucose [Mass/Vol] 447 mg/dL Critically high 74-106 [facility] Comment on above: Performed By: #### C MP ####[facility] Wbrbuatetf1741 [place] [phone]. Farhat Leal Potassium [Moles/Vol] 4.5 mmol/L Normal 3.5-5.1 [facility] Comment on above: Performed By: #### C MP ####[facility] Yckifpbvjn6267 [place] [address]Dr. Farhat Elvis Protein [Mass/Vol] 6.0 g/dL Critically low 6.4-8.2 [facility] Comment on above: Performed By: #### C MP ####[facility] Lzbypfvoql1771 [place] [address]Dr. Farhat Elvis Sodium [Moles/Vol] 135 mmol/L Critically low 136-145 Th [facility] Comment on above: Performed By: #### C MP ####[facility] Hpqzxplniy18[address] [place], [place] [address]Dr. Madelynlorri Leal Urea nitrogen [Mass/Vol] 52.0 mg/dL Critically high 7.0-18.0 [facility] Comment on above: Performed By: #### C MP ####[facility] Gfzbrapjxc34[address] [place], [place] [address]Dr. Farhat Elvis Urea nitrogen/Creatinine [Mass ratio] 43.3 mg/mg Normal [facility] Comment on above: Performed By: #### C MP ####[facility] Jbkayqsflh89[address] [place], [place] [address]Dr. Farhat Leal PROTIMEon 05-06-2022 INR Coag (PPP) [Relative time] 2.25 {INR} Normal [facility] Comment on above: Performed By: #### P T ####[facility] Ipzfmzkyha[address] [place], [place] [address]Dr. Farhat Leal INR GUIDELINES SEE BELOW Normal [facility] Comment on above: Result Comment: MALINA RED INR: 2.0 - 3.0 CONDITIONS NOT LISTED BELOW 2.5 - 3.5 FOR PROSTHETIC HEART VALVE REPLACEMENT 2.5 - 3.5 RECURRENT THROMBOSIS Performed By: #### P T ####[facility] Kddzkqitkk6[address] [place], [place] [address]Dr. Madelynlorri Leal PT Coag (PPP) [Time] 22.8 s Critically high 9.0-11.6 [facility] Comment on above: Performed By: #### P T ####[facility] Jaugptexyx5[address] [place], [place] [address]Dr. Farhat Elvis FK506 (TACROLIMUS) WHOLE BLO ODon 05-04-2022 Tacrolimus (FK506), Blood 10.4 ng/mL Normal 2.0-20.0 [facility] Comment on above: Result Comment: Trou gh (immediately following transplant) 15.0 . Trough (steady state, 2 weeks or more after transplant): 3.0 - 8.0 . Performed by LC-MS/MS technology. Performed By: #### F K506T ####[facility] Zuwnwkljre[address] [place], [place] [address]Dr. Farhat Elvis CBC AUTO DIFFon 05-01-2022 BASO # 0.1 103/ul Normal 0.0-0.1 [facility] Comment on above: Performed By: #### C BC ####[facility] Daewcphitk13[address] [place], [place] [address]Dr. Madelynlorri Leal Basophils/100 WBC (Bld) 0.7 % Normal 0.2-2.0 [facility] Comment on above: Performed By: #### C BC ####[facility] Igdghrswxd24[address] [place], [place] [address]Dr. Farhat Leal EO # 0.2 103/ul Normal 0.0-0.7 [facility] Comment on above: Performed By: #### C BC ####[facility] Bhqblliosv[address] [place], [place] [address]Dr. Farhat Leal Eosinophils/100 WBC (Bld) 3.2 % Normal 0.9-7.0 [facility] Comment on above: Performed By: #### C BC ####[facility] Ywxguxcitl8[address] [place], [place] [address]Dr. Farhat Leal Erythrocyte distribution width (RBC) [Ratio] 16.4 % Critically high 11.0-15.0 [facility] Comment on above: Performed By: #### C BC ####[facility] Jlqfvtyjmb3[address] [place] [address]Dr. Farhat Leal Hematocrit (Bld) [Volume fraction] 35.1 % Critically low 42.0-54.0 [facility] Comment on above: Performed By: #### C BC ####[facility] Udgevhhkly89[address] [place] [address]Dr. Farhat Leal Hemoglobin (Bld) [Mass/Vol] 11.6 g/dL Critically low 14.0-18.0 [facility] Comment on above: Performed By: #### C BC ####[facility] Zmigwbnsww[address] [place], [place] [address]Dr. Madelynlorri Leal IG # 0.03 10e3/ul Normal 0.00-0.03 [facility] Comment on above: Performed By: #### C BC ####[facility] Uihhszbtda5[address] [place], [place] [address]Dr. Farhat Leal IG % 0.4 % Normal 0.0-0.5 [facility] Comment on above: Performed By: #### C BC ####[facility] Sbjgpkcvmf[address] [place], [place] [address]Dr. Madelynlorri Leal LYMPH # 2.4 103/ul Normal 1.2-3.8 [facility] Comment on above: Performed By: #### C BC ####[facility] Rfgfvqydij[address] [place], [place] [address]Dr. Farhat Leal Lymphocytes/100 WBC (Bld) 35.1 % Normal 20.5-60.0 [facility] Comment on above: Performed By: #### C BC ####[facility] Zubpznqnud[address] [place], [place] [address]Dr. Farhat Leal MANUAL DIFF REQ NO Normal [facility] Comment on above: Performed By: #### C BC ####[facility] Fpthklrsjr34[address] [place], [place] [address]Dr. Farhat Leal MCH (RBC) [Entitic mass] 29.4 pg Normal 25.9-34.0 [facility] Comment on above: Performed By: #### C BC ####[facility] Qlhcffclez4788 [place] [phone]. Farhat Elvis MCHC (RBC) [Mass/Vol] 33.0 g/dL Normal 29.9-35.2 [facility] Comment on above: Performed By: #### C BC ####[facility] Krdgvzrolv2843 [place] [phone]. Farhat Leal MCV (RBC) [Entitic vol] 88.9 fL Normal 80.0-94.0 [facility] Comment on above: Performed By: #### C BC ####[facility] Wyofvrcrsf5124 [place] [phone]. Farhat Leal MONO # 0.7 103/ul Normal 0.3-0.8 [facility] Comment on above: Performed By: #### C BC ####[facility] Uyoduluqwg[address] [place], [place] [address]Dr. Farhat Leal Monocytes/100 WBC (Bld) 9.6 % Normal 1.7-12.0 [facility] Comment on above: Performed By: #### C BC ####[facility] Rijhigrzrv[address] [place], [place] [address]Dr. Farhat Leal NEUT # 3.5 103/ul Normal 1.4-6.5 [facility] Comment on above: Performed By: #### C BC ####[facility] Cppxgfiqxh[address] [place], [place] [address]Dr. Farhat Leal Neutrophils/100 WBC (Bld) 51.0 % Normal 43.0-75.0 [facility] Comment on above: Performed By: #### C BC ####[facility] Yrtjcxxhof39[address] [place], [place] [address]Dr. Farhat Leal Platelet mean volume (Bld) [Entitic vol] 10.3 fL Normal 9.5-13.5 [facility] Comment on above: Performed By: #### C BC ####[facility] Coorhesb[address] [place], [place] [address]Dr. Farhat Leal PLT 184 103/ul Normal 150-450 [facility] Comment on above: Performed By: #### C BC ####[facility] Allmikxxtp4257 [place] [phone]. Farhat Leal RBC 3.95 106/ul Critically low 4.70-6.10 [facility] Comment on above: Performed By: #### C BC ####[facility] Oikssznmhv3103 [place] [phone]. Farhat Leal WBC 7.0 103/ul Normal 4.0-11.0 [facility] Comment on above: Performed By: #### C BC ####[facility] Rfmhghaapr4925 [place] [address]Dr. Farhat Leal PROF 14(COMP METB)on 023 Albumin [Mass/Vol] 2.6 g/dL Critically low 3.4-5.0 [facility] Comment on above: Performed By: #### C MP ####[facility] Ibgatdvyjf4975 [place] [address]Dr. Farhat Leal Albumin/Globulin [Mass ratio] 0.9 {ratio} Normal [facility] Comment on above: Performed By: #### C MP ####[facility] Sglpbwebdv5256 [place] [address]Dr. Farhat Leal ALP [Catalytic activity/Vol] 53 U/L Normal 46-116 [facility] Comment on above: Performed By: #### C MP ####[facility] Whatkswtca9651 [place] [address]Dr. Farhat Leal ALT [Catalytic activity/Vol] 17 U/L Normal 16-63 [facility] Comment on above: Performed By: #### C MP ####[facility] Glgwkviaup5580 [place] [address]Dr. Farhat Leal Anion gap [Moles/Vol] 10.0 mmol/L Normal [facility] Comment on above: Performed By: #### C MP ####[facility] Hcawzpudmz8708 [place] [address]Dr. Farhat Leal AST [Catalytic activity/Vol] 19 U/L Normal 15-37 [facility] Comment on above: Performed By: #### C MP ####[facility] Ljcrwzwxcf7468 [place] [phone]. Farhat Leal Bilirubin [Mass/Vol] 0.5 mg/dL Normal 0.2-1.0 [facility] Comment on above: Performed By: #### C MP ####[facility] Evmpmqlhtz9048 [place] [phone]. Farhat Leal Calcium [Mass/Vol] 8.4 mg/dL Critically low 8.5-10.1 Th [facility] Comment on above: Performed By: #### C MP ####[facility] Sytjoxhrvl2949 [place] [phone]. Farhat Leal Chloride [Moles/Vol] 108 mmol/L Critically high 98-107 [facility] Comment on above: Performed By: #### C MP ####[facility] Oyqhrvaije[address] [place], [place] [address]Dr. Farhat Leal CO2 [Moles/Vol] 26.9 mmol/L Normal 21.0-32.0 [facility] Comment on above: Performed By: #### C MP ####[facility] Ywfmkieycf14[address] [place], [place] [address]Dr. Farhat Leal Creatinine [Mass/Vol] 1.20 mg/dL Normal 0.70-1.30 [facility] Comment on above: Performed By: #### C MP ####[facility] Lbmohiwbpw[address] [place], [place] [address]Dr. Farhat Elvis EGFR-AF GHANAIAN >60 Normal >=60 [facility] Comment on above: Performed By: #### C MP ####[facility] Pjpxjgistf[address] [place], [place] [address]Dr. Farhat Elvis EGFR-NON AF GHANAIAN 59 mL/min/1.73m2 Critically low >=60 [facility] Comment on above: Performed By: #### C MP ####[facility] Cidlqfwjvc9[address] [place], [place] [address]Dr. Farhat Leal Globulin (S) [Mass/Vol] 3.0 g/dL Normal [facility] Comment on above: Performed By: #### C MP ####[facility] Xertvkkvxo6195 [place] [address]Dr. Farhat Leal Glucose [Mass/Vol] 213 mg/dL Critically high 74-106 T [facility] Comment on above: Performed By: #### C MP ####[facility] Sgqfrnqjmy6028 [place] [address]Dr. Farhat Leal Potassium [Moles/Vol] 3.9 mmol/L Normal 3.5-5.1 [facility] Comment on above: Performed By: #### C MP ####[facility] Umrzxyynon6881 [place] [address]Dr. Farhat Leal Protein [Mass/Vol] 5.6 g/dL Critically low 6.4-8.2 Th [facility] Comment on above: Performed By: #### C MP ####[facility] Vmaknkxhiq[address] [place], [place] [address]Dr. Farhat Leal Sodium [Moles/Vol] 141 mmol/L Normal 136-145 [facility] Comment on above: Performed By: #### C MP ####[facility] Yqhngwxval1979[address] [place], [place] [address]Dr. Farhat Leal Urea nitrogen [Mass/Vol] 61.0 mg/dL Critically high 7.0-18.0 [facility] Comment on above: Performed By: #### C MP ####[facility] Rpgvefwasd480[address] [place], [place] [address]Dr. Farhat Leal Urea nitrogen/Creatinine [Mass ratio] 50.8 mg/mg Normal [facility] Comment on above: Performed By: #### C MP ####[facility] Oqaesftzyl464[address] [place], [place] [address]Dr. Farhat Leal FK506 (TACROLIMUS) WHOLE BLO ODon 04-27-2022 Tacrolimus (FK506), Blood 16.5 ng/mL Normal 2.0-20.0 [facility] Comment on above: Result Comment: Trou gh (immediately following transplant) 15.0 . Trough (steady state, 2 weeks or more after transplant): 3.0 - 8.0 . Performed by LC-MS/MS technology. Performed By: #### F K506T ####[facility] Qorvxmmjut6501 [place] [address]Dr. Farhat Leal CBC AUTO DIFFon 04-24-2022 BASO # 0.0 103/ul Normal 0.0-0.1 [facility] Comment on above: Performed By: #### C BC ####[facility] Mx[address]qxlqacq[address] [place], [place] [address]Dr. Farhat Leal Basophils/100 WBC (Bld) 0.5 % Normal 0.2-2.0 [facility] Comment on above: Performed By: #### C BC ####[facility] Byelxudorj34[address] [place], [place] [address]Dr. Farhat Leal EO # 0.2 103/ul Normal 0.0-0.7 [facility] Comment on above: Performed By: #### C BC ####[facility] Ntjpdekrrl230[address] [place], [place] [address]Dr. Farhat Elvis Eosinophils/100 WBC (Bld) 3.1 % Normal 0.9-7.0 [facility] Comment on above: Performed By: #### C BC ####[facility] Kamkilaaew39[address] [place], [place] [address]Dr. Farhat Leal Erythrocyte distribution width (RBC) [Ratio] 16.3 % Critically high 11.0-15.0 [facility] Comment on above: Performed By: #### C BC ####[facility] Txeuxrkyty9[address] [place], [place] [address]Dr. Farhat Leal Hematocrit (Bld) [Volume fraction] 34.0 % Critically low 42.0-54.0 [facility] Comment on above: Performed By: #### C BC ####[facility] Fioqowtppx[address] [place], [place] [address]Dr. Farhat Leal Hemoglobin (Bld) [Mass/Vol] 11.6 g/dL Critically low 14.0-18.0 [facility] Comment on above: Performed By: #### C BC ####[facility] Rjxlafloif[address] [place], [place] [address]Dr. Farhat Leal IG # 0.02 10e3/ul Normal 0.00-0.03 [facility] Comment on above: Performed By: #### C BC ####[facility] Sxxqvxquwa2769 [place] [phone]. Farhat Leal IG % 0.4 % Normal 0.0-0.5 [facility] Comment on above: Performed By: #### C BC ####[facility] Bxgdkyuxof9767 [place] [phone]. Farhat Leal LYMPH # 2.2 103/ul Normal 1.2-3.8 [facility] Comment on above: Performed By: #### C BC ####[facility] Bmaputvouy9153 [place] [phone]. Farhat Leal Lymphocytes/100 WBC (Bld) 38.8 % Normal 20.5-60.0 [facility] Comment on above: Performed By: #### C BC ####[facility] Vufguitmkp9585 [place] [address]Dr. Farhat Leal MANUAL DIFF REQ NO Normal [facility] Comment on above: Performed By: #### C BC ####[facility] Rvssfnagoi0341 [place] [phone]. Farhat Leal MCH (RBC) [Entitic mass] 30.1 pg Normal 25.9-34.0 [facility] Comment on above: Performed By: #### C BC ####[facility] Phlhdrkjmb0989 [place] [phone]. Farhat Leal MCHC (RBC) [Mass/Vol] 34.1 g/dL Normal 29.9-35.2 [facility] Comment on above: Performed By: #### C BC ####[facility] Fahqzoexgj2314 [place] [phone]. Farhat Leal MCV (RBC) [Entitic vol] 88.1 fL Normal 80.0-94.0 [facility] Comment on above: Performed By: #### C BC ####[facility] Brppvmtfzc4358 [place] [phone]. Farhat Elvis MONO # 0.6 103/ul Normal 0.3-0.8 [facility] Comment on above: Performed By: #### C BC ####[facility] Hsvjwvrcen0807 [place] [phone]. Farhat Leal Monocytes/100 WBC (Bld) 10.8 % Normal 1.7-12.0 [facility] Comment on above: Performed By: #### C BC ####[facility] Zonmqepzvh6213 [place] [phone]. Farhat Leal NEUT # 2.6 103/ul Normal 1.4-6.5 [facility] Comment on above: Performed By: #### C BC ####[facility] Nqtlxyfkle2114 [place] [phone]. Farhat Leal Neutrophils/100 WBC (Bld) 46.4 % Normal 43.0-75.0 [facility] Comment on above: Performed By: #### C BC ####[facility] Ukcyrjxmey9878 [place] [phone]. Farhat Leal Platelet mean volume (Bld) [Entitic vol] 10.9 fL Normal 9.5-13.5 [facility] Comment on above: Performed By: #### C BC ####[facility] Jzbfujhyil0418 [place] [phone]. Farhat Leal PLT 159 103/ul Normal 150-450 [facility] Comment on above: Performed By: #### C BC ####[facility] Inidwjsqep0975 [place] [phone]. Farhat eLal RBC 3.86 106/ul Critically low 4.70-6.10 [facility] Comment on above: Performed By: #### C BC ####[facility] Hqsgdgmwys[address] [place], [place] [address]Dr. Farhat Leal WBC 5.6 103/ul Normal 4.0-11.0 [facility] Comment on above: Performed By: #### C BC ####[facility] Nrdfzqauvf3451 [place] [phone]. Farhat Leal PROTIMEon 04-24-2022 INR Coag (PPP) [Relative time] 3.23 {INR} Normal [facility] Comment on above: Performed By: #### P T ####[facility] Czkrwrjrqe[address] [place], [place] [address]DrSkylar Leal INR GUIDELINES SEE BELOW Normal [facility] Comment on above: Result Comment: MALINA RED INR: 2.0 - 3.0 CONDITIONS NOT LISTED BELOW 2.5 - 3.5 FOR PROSTHETIC HEART VALVE REPLACEMENT 2.5 - 3.5 RECURRENT THROMBOSIS Performed By: #### P T ####[facility] Jqlaclfrse3964[address] [place], [place] [address]Dr. Farhat Leal PT Coag (PPP) [Time] 32.0 s Critically high 9.0-11.6 [facility] Comment on above: Performed By: #### P T ####[facility] Rbifskfxeo47[address] [place], [place] [address]Dr. Farhat Leal FK506 (TACROLIMUS) WHOLE BLO ODon 04-20-2022 Tacrolimus (FK506), Blood 13.9 ng/mL Normal 2.0-20.0 [facility] Comment on above: Result Comment: Trou gh (immediately following transplant) 15.0 . Trough (steady state, 2 weeks or more after transplant): 3.0 - 8.0 . Performed by LC-MS/MS technology. Performed By: #### F K506T ####[facility] Flzdponqkt[address] [place], [place] [address]Dr. Farhat Leal CBC AUTO DIFFon 04-17-2022 BASO # 0.0 103/ul Normal 0.0-0.1 [facility] Comment on above: Performed By: #### C BC ####[facility] Uvilpbwlnx[address] [place], [place] [address]DrSkylar Leal Basophils/100 WBC (Bld) 0.4 % Normal 0.2-2.0 [facility] Comment on above: Performed By: #### C BC ####[facility] Mlsdfymmeh[address] [place], [place] [address]Dr. Farhat Leal EO # 0.2 103/ul Normal 0.0-0.7 [facility] Comment on above: Performed By: #### C BC ####[facility] Ugoajghvfb72[address] [place], [place] [address]DrSkylar Leal Eosinophils/100 WBC (Bld) 2.8 % Normal 0.9-7.0 [facility] Comment on above: Performed By: #### C BC ####[facility] Qyugvrvxhr2980 [place] [address]Dr. Farhat Leal Erythrocyte distribution width (RBC) [Ratio] 16.1 % Critically high 11.0-15.0 [facility] Comment on above: Performed By: #### C BC ####[facility] Cdpdeptkxb0143 [place] [address]Dr. Farhat Leal Hematocrit (Bld) [Volume fraction] 35.7 % Critically low 42.0-54.0 [facility] Comment on above: Performed By: #### C BC ####[facility] Lhktqcmxer[address] [place], [place] [address]Dr. Farhat Leal Hemoglobin (Bld) [Mass/Vol] 12.2 g/dL Critically low 14.0-18.0 [facility] Comment on above: Performed By: #### C BC ####[facility] [address]qqhslteq[address] [place], [place] [address]Dr. Farhat Leal IG # 0.03 10e3/ul Normal 0.00-0.03 [facility] Comment on above: Performed By: #### C BC ####[facility] Dryrsqsotn[address] [place], [place] [address]Dr. Farhat Leal IG % 0.4 % Normal 0.0-0.5 [facility] Comment on above: Performed By: #### C BC ####[facility] Nqqzdporob[address] [place], [place] [address]Dr. Farhat Leal LYMPH # 2.4 103/ul Normal 1.2-3.8 The [facility] Comment on above: Performed By: #### C BC ####[facility] [address] [place], [place] [address]Dr. Farhat Leal Lymphocytes/100 WBC (Bld) 36.1 % Normal 20.5-60.0 [facility] Comment on above: Performed By: #### C BC ####[facility] Ymsdlkeytf[address] [place], [place] [address]Dr. Farhat Leal MANUAL DIFF REQ NO Normal [facility] Comment on above: Performed By: #### C BC ####[facility] [address] [place] [address]Dr. Farhat Elvis MCH (RBC) [Entitic mass] 30.3 pg Normal 25.9-34.0 [facility] Comment on above: Performed By: #### C BC ####[facility] Pkvrinusdu[address] [place], [place] [address]Dr. Farhat Elvis MCHC (RBC) [Mass/Vol] 34.2 g/dL Normal 29.9-35.2 [facility] Comment on above: Performed By: #### C BC ####[facility] L[address]nvyxoad[address] [place], [place] [address]Dr. Farhat Leal MCV (RBC) [Entitic vol] 88.6 fL Normal 80.0-94.0 [facility] Comment on above: Performed By: #### C BC ####[facility] [address]wsvjw[address] [place], [place] [address]Dr. Farhat Leal MONO # 0.7 103/ul Normal 0.3-0.8 [facility] Comment on above: Performed By: #### C BC ####[facility] Movw[address]jfsh[address] [place], [place] [address]Dr. Farhat Leal Monocytes/100 WBC (Bld) 10.1 % Normal 1.7-12.0 [facility] Comment on above: Performed By: #### C BC ####[facility] [address]wl[address] [place], [place] [address]DrSkylar Leal NEUT # 3.4 103/ul Normal 1.4-6.5 [facility] Comment on above: Performed By: #### C BC ####[facility] [address]ysvlng[address] [place], [place] [address]DrSkylar Leal Neutrophils/100 WBC (Bld) 50.2 % Normal 43.0-75.0 [facility] Comment on above: Performed By: #### C BC ####[facility] X[address]zsnpr[address] [place], [place] [address]Dr. Farhat Leal Platelet mean volume (Bld) [Entitic vol] 11.8 fL Normal 9.5-13.5 [facility] Comment on above: Performed By: #### C BC ####[facility] [address] [place] [address]Dr. Farhat Leal PLT 193 103/ul Normal 150-450 [facility] Comment on above: Performed By: #### C BC ####[facility] [address] [place] [address]Dr. Farhat Leal RBC 4.03 106/ul Critically low 4.70-6.10 [facility] Comment on above: Performed By: #### C BC ####[facility] [address] [place] [address]Dr. Farhat Leal WBC 6.8 103/ul Normal 4.0-11.0 [facility] Comment on above: Performed By: #### C BC ####[facility] [address] [place] [address]DrSkylar Leal PROF 14(COMP METB)on 023 Albumin [Mass/Vol] 2.9 g/dL Critically low 3.4-5.0 [facility] Comment on above: Performed By: #### C MP ####[facility] [address] [place] [address]DrSkylar Leal Albumin/Globulin [Mass ratio] 0.9 {ratio} Normal [facility] Comment on above: Performed By: #### C MP ####[facility] [address] [place] [address]DrSkylar Leal ALP [Catalytic activity/Vol] 67 U/L Normal 46-116 [facility] Comment on above: Performed By: #### C MP ####[facility] [address] [place] [address]DrSkylar Leal ALT [Catalytic activity/Vol] 15 U/L Critically low 16-63 [facility] Comment on above: Performed By: #### C MP ####[facility] [address]cdc[address] [place] [address]DrSkylar Leal Anion gap [Moles/Vol] 10.8 mmol/L Normal [facility] Comment on above: Performed By: #### C MP ####[facility] Icxroppoge[address] [place], [place] [address]Dr. Farhat Leal AST [Catalytic activity/Vol] 23 U/L Normal 15-37 [facility] Comment on above: Performed By: #### C MP ####[facility] V[address]irksb[address] [place], [place] [address]Dr. Farhat Leal Bilirubin [Mass/Vol] 0.6 mg/dL Normal 0.2-1.0 [facility] Comment on above: Performed By: #### C MP ####[facility] Bfrlitunew5[address] [place], [place] [address]Dr. Farhat Elvis Calcium [Mass/Vol] 8.7 mg/dL Normal 8.5-10.1 [facility] Comment on above: Performed By: #### C MP ####[facility] X[address]qhpsvsbb0[address] [place], [place] [address]Dr. Farhat Elvis Chloride [Moles/Vol] 105 mmol/L Normal 98-107 [facility] Comment on above: Performed By: #### C MP ####[facility] [address]vwufwd[address] [place], [place] [address]Dr. Farhat Elvis CO2 [Moles/Vol] 29.5 mmol/L Normal 21.0-32.0 [facility] Comment on above: Performed By: #### C MP ####[facility] Jokmqafaph[address] [place], [place] [address]Dr. Farhat Elvis Creatinine [Mass/Vol] 1.37 mg/dL Critically high 0.70-1.30 [facility] Comment on above: Performed By: #### C MP ####[facility] [address]wbspn[address] [place], [place] [address]Dr. Madelynlorri Elvis EGFR-AF GHANAIAN >60 Normal >=60 [facility] Comment on above: Performed By: #### C MP ####[facility] Rkyhaoibvx[address] [place], [place] [address]Dr. Farhat Leal EGFR-NON AF GHANAIAN 50 mL/min/1.73m2 Critically low >=60 [facility] Comment on above: Performed By: #### C MP ####[facility] [address] [place] [address]Dr. Farhat Leal Globulin (S) [Mass/Vol] 3.1 g/dL Normal [facility] Comment on above: Performed By: #### C MP ####[facility] [address] [place] [address]Dr. Farhat Leal Glucose [Mass/Vol] 203 mg/dL Critically high 74-106 T [facility] Comment on above: Performed By: #### C MP ####[facility] R[address]jdpbcix[address] [place] [address]Dr. Farhat Leal Potassium [Moles/Vol] 4.3 mmol/L Normal 3.5-5.1 [facility] Comment on above: Performed By: #### C MP ####[facility] Wynbwtzrbv[address] [place], [place] [address]Dr. Farhat Leal Protein [Mass/Vol] 6.0 g/dL Critically low 6.4-8.2 Th [facility] Comment on above: Performed By: #### C MP ####[facility] Idpmcgoibo[address] [place], [place] [address]Dr. Farhat Leal Sodium [Moles/Vol] 141 mmol/L Normal 136-145 [facility] Comment on above: Performed By: #### C MP ####[facility] [address] [place] [address]Dr. Farhat Leal Urea nitrogen [Mass/Vol] 65.0 mg/dL Critically high 7.0-18.0 [facility] Comment on above: Performed By: #### C MP ####[facility] [address]ive[address]ibhp[address] [place], [place] [address]Dr. Farhat Leal Urea nitrogen/Creatinine [Mass ratio] 47.4 mg/mg Normal [facility] Comment on above: Performed By: #### C MP ####[facility] [address]tafkhz[address] [place], [place] [address]Dr. Farhat Leal PROTIMEon 04-15-2022 INR Coag (PPP) [Relative time] 3.88 {INR} Normal [facility] Comment on above: Performed By: #### P T ####[facility] [address] [place], [place] [address]Bm. Farhat Leal INR GUIDELINES SEE BELOW Normal [facility] Comment on above: Result Comment: MALINA RED INR: 2.0 - 3.0 CONDITIONS NOT LISTED BELOW 2.5 - 3.5 FOR PROSTHETIC HEART VALVE REPLACEMENT 2.5 - 3.5 RECURRENT THROMBOSIS Performed By: #### P T ####[facility] [address] [place], [place] [address]Ms. Farhat Leal PT Coag (PPP) [Time] 38.1 s Critically high 9.0-11.6 [facility] Comment on above: Performed By: #### P T ####[facility] [address] [place], [place] [address]Sk. Farhat Leal Glucose Glucometer (dC) [M ass/Vol]Ordered By: Sadia Aguilar on 04-14-2022 Glucose [Mass/Vol] 162 mg/dL [facility] Comment on above: Random Glucose Refer ence Range is dependent on time and content of last meal. Glucose of more than 200 mg/dL in a nonstressed, ambulatory subject supports the diagnosis of Diabetes Mellitus. Glucose Poct Glucometerson 0 04-14-2022 Commemt1 Glu2: Cleaned Meter Normal [facility] Comment on above: Result Comment: PERF ORMED BY: [facility] [address] [place] [address] PATHOLOGIST [employer] JOSE F ELLIOTT M.D. Performed By: #### G LULS #### Point of Care testing , Glucose [Mass/Vol] 162 mg/dL Normal [facility] Comment on above: Result Comment: [facility] Glucose Reference Range is dependent on time and content of last meal. Glucose of more than 200 mg/dL in a nonstressed, ambulatory subject supports the diagnosis of Diabetes Mellitus. Performed By: #### G LULS #### Point of Care testing , No Panel InformationOrdered By: Sadia Aguilar on 04-14-2022 Bedside Glucose Comment Glu2: cleaned meter [facility] MAGNESIUMon 04-13-2022 Magnesium [Mass/Vol] 1.7 mg/dL Critically low 1.8-2.4 [facility] Comment on above: Performed By: #### M Anais, PHOS ####[facility] [address] [place] [address]Dr. Madelynlorri Leal PHOSPHORUSon 04-13-2022 Phosphate [Mass/Vol] 4.8 mg/dL Critically high 2.6-4.7 [facility] Comment on above: Performed By: #### M Anais, PHOS ####[facility] [address] [place] [address]Dr. Farhat Leal PROTIMEon 04-13-2022 INR Coag (PPP) [Relative time] 3.16 {INR} Normal [facility] Comment on above: Performed By: #### P T ####[facility] [address] [place], [place] [address]DrSkylar Leal INR GUIDELINES SEE BELOW Normal The [facility] Comment on above: Result Comment: MALINA RED INR: 2.0 - 3.0 CONDITIONS NOT LISTED BELOW 2.5 - 3.5 FOR PROSTHETIC HEART VALVE REPLACEMENT 2.5 - 3.5 RECURRENT THROMBOSIS Performed By: #### P T ####[facility] [address] [place], [place] [address]DrSkylar Leal PT Coag (PPP) [Time] 31.4 s Critically high 9.0-11.6 [facility] Comment on above: Performed By: #### P T ####[facility] [address] [place] [address]Dr. Farhat Leal MAGNESIUMon 03-11-2022 Magnesium [Mass/Vol] 1.6 mg/dL Critically low 1.8-2.4 [facility] Comment on above: Performed By: #### M Anais, PHOS ####[facility] [address] [place], [place] [address]Dr. Farhat Leal PHOSPHORUSon 03-11-2022 Phosphate [Mass/Vol] 5.3 mg/dL Critically high 2.6-4.7 [facility] Comment on above: Performed By: #### M HENRI Manzo ####[facility] [address] [place], [place] [address]UeSkylar Gaston 02-26-2022 CNOV Office Visit (VASSMN ) ALEX ALMONTE ([id number]) 1945 M TRN Date Time Provider Department 02/26/22 3:00 PM HINA PETERSON During your visit today, we recorded the following information about you: Temperature Pulse Blood pressure 96.6 degrees 75/minute 88/75 Hina Peterson MD, MD 02/26/2022 4:31 PM [facility] DEPARTMENT OF VASCULAR SURGERY OUTPATIENT VISIT DATE [...] his postop visit. He has been in long term since then and has been recovering from his acute on chronic congestive heart failure. His wound has largely been healing without any issues and the maxwell and sutures were removed at the nursing facility. He comes here with a lateral wound eschar. He denies any fevers, chills, or any drainage. He is on anticoagulation. 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 Magic [employer] [place] with lunch aspirin, enteric coated (ASPIRIN, ENTERIC COATED) 81 mg EC tablet Take 1 tablet by (more content not included)... Normal [facility] PROTIMEon 02-25-2022 INR Coag (PPP) [Relative time] 1.31 {INR} Normal [facility] Comment on above: Performed By: #### P T ####[facility] [address] [place] [address]Dr. Farhat Leal INR GUIDELINES SEE BELOW Normal [facility] Comment on above: Result Comment: MALINA RED INR: 2.0 - 3.0 CONDITIONS NOT LISTED BELOW 2.5 - 3.5 FOR PROSTHETIC HEART VALVE REPLACEMENT 2.5 - 3.5 RECURRENT THROMBOSIS Performed By: #### P T ####[facility] [address] [place], [place] [address]VyDr. Farhat Leal PT Coag (PPP) [Time] 13.7 s Critically high 9.0-11.6 [facility] Comment on above: Performed By: #### P T ####[facility] [address] [place], [place] [address]RkSkylar Leal DIAMANTERosalie 02-19-2022 CNPN Telephone (TXCTGL) ALEX ALMONTE ([id number]) 1945 M TRN Date Time Provider Department [...] by mouth daily with lunch. 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 Sonya 02-18-2022 CONRADO Telephone (PODCCP) ALEX ALMONTE ([id number]) 1945 M TRN Date Time Provider Department 02/18/22 DEVON MOREIRA During your visit today, we recorded the following information about you: Yumiko Denise 02/18/2022 3:16 PM Signed Reason for call: Mr. Almonte would like to request a sooner appointment with Dr. Peterson than 04/13/2022. Contact Name (if not the patient) Alex's nurse Home and cell number(Ask for Alex's nurse) [phone] Diagnosis 4 mo f/u wound check Best [...] by mouth daily with lunch. 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 Normal [facility] Alek 02-05-2022 CNOV Office Visit (TXCTGL ) ALEX ALMONTE ([id number]) 1945 M TRN Date Time Provider Department 02/05/22 8:20 AM [facility]IDNEY TXP [facility]INIC TXCTGL During your visit today, we recorded the following information about you: Temperature Pulse Blood pressure 96.7 degrees 79/minute 72/42 Asia Pike MD 02/05/2022 9:38 AM Signed [facility] [place] Transplant Follow up Portions of this note [...] snacks patient declined. Indra scale at [facility]: 166.2 lbs per patient. Bed sore on coccyx causing discomfort. Being changed regularly at SNF- reported to be smaller around but still as deep. Patient not very up to date with medications. Patient brought paperwork from [facility] with all medications being received. Patient unsure if they have been drawing labs regularly. Last Tac from 01/19: 12.9 and K 5.9. In need of current labs. Lab orders will be sent with patient and follows as below: Kidney and Pancreas Transplant Standing Lab Orders [address] [place], [place] [address] February 05, 2022 Alex Almonte 1945 [id number] STANDARD TESTING: Diagnosis Codes: Z94.0 Kidney Transplant [...] AT YOUR LABORATORY FACILITY AND FAX TO [phone]. PLEASE CALL [phone]. Provider: Dr. Pike Current Outpatient Medications Medication [...] (U) [Mass ratio] 0.10 mg/mg <0.15 mg/mg [facility] PROTIMEon 02-05-2022 INR Coag (PPP) [Relative time] 2.90 {INR} Normal [facility] Comment on above: Performed By: #### P T ####[facility] [address] [place] [address]DrSkylar Leal INR GUIDELINES SEE BELOW Normal [facility] Comment on above: Result Comment: MALINA RED INR: 2.0 - 3.0 CONDITIONS NOT LISTED BELOW 2.5 - 3.5 FOR PROSTHETIC HEART VALVE REPLACEMENT 2.5 - 3.5 RECURRENT THROMBOSIS Performed By: #### P T ####[facility] [address] [place] [id number]. Farhat Leal PT Coag (PPP) [Time] 29.2 s Critically high 9.0-11.6 [facility] Comment on above: Performed By: #### P T ####[facility] [address] [place] [id number]. Farhat Leal Prot/Creat Uron 02-05-2022 Protein/Creatinine (U) [Mass ratio] 0.10 mg/mg Normal <0.15 [facility] Comment on above: Order Comment: Speci men Type: URINE SPECIMENOrdering Facility: [facility] Address: [place] [address] Result Comment: Adul t Proteinuria Categories: <0.15 mg/mg is considered normal to mildly increased 0.15 - 0.50 mg/mg is considered moderately increased >0.50 mg/mg is considered severely increased KDIGO. (2013). KDIGO 2012 Clinical Practice Guideline for the Evaluation and Management of Chronic Kidney Disease. Official Journal of the International Society of Nephrology, 3(1), 1-150. Performed By: #### 2 890-2 ####[facility] [id number] [place] [address] [place] Protein/Creatinine (U) [Mass ratio]on 02-05-2022 Creatinine (U) [Mass/Vol] 86.9 mg/dL Normal 20.0-300.0 [facility] Comment on above: Order Comment: Speci men Type: URINE SPECIMENOrdering Facility: [facility] Address: [address] [place], [place] [address] Performed By: #### 2 890-2 ####[facility] [id number] [place] [address] [place] Creatinine (U) [Mass/Vol] 86.9 mg/dL 20.0 - 300.0 mg/dL [facility] Protein (U) [Mass/Vol] 9 mg/dL Normal 0-20 Cl [facility] Comment on above: Order Comment: Speci men Type: URINE SPECIMENOrdering Facility: [facility] Address: [address] [place], [place] [address] Performed By: #### 2 890-2 ####[facility] [id number] [place] [address] [place] Protein (U) [Mass/Vol] 9 mg/dL 0 - 20 mg/dL [facility] URINALYSIS, DIPSTICK ONLYon 02-05-2022 Bilirubin Ql (U) Negative Normal Negative [facility] Comment on above: Order Comment: Speci men Type: URINE SPECIMEN Ordering Facility: [facility] Address: [address] [place], [place] [address] Performed By: #### U A #### [facility] CLIA [id number] [address] [place] Clarity (Unsp spec) Clear Normal Clear [facility] Comment on above: Order Comment: Speci men Type: URINE SPECIMEN Ordering Facility: [facility] Address: [address] [place] [address] Performed By: #### U A #### [facility] CLIA [id number] [address] [place] Color (U) Yellow Normal Yellow [facility] Comment on above: Order Comment: Speci men Type: URINE SPECIMEN Ordering Facility: [facility] Address: [address] [place], [place] [address] Performed By: #### U A #### [facility] CLIA [id number] [address] [place] [address] [place] Glucose Test strip (U) [Mass/Vol] 3+ Abnormal Trace, Negative [facility] Comment on above: Order Comment: Speci men Type: URINE SPECIMEN Ordering Facility: [facility] Address: [address] [place], [place] [address] Performed By: #### U A #### [facility] CLIA [id number] [address] [place] [address] [place] Hemoglobin Ql (U) Negative Normal Negative, Trace [facility] Comment on above: Order Comment: Speci men Type: URINE SPECIMEN Ordering Facility: [facility] Address: [address] [place], [place] [address] Performed By: #### U A #### [facility] CLIA [id number] [address] [place] Ketones Ql (U) Trace Normal Negative, Trace [facility] Comment on above: Order Comment: Speci men Type: URINE SPECIMEN Ordering Facility: [facility] Address: [address] [place], [place] [address] Performed By: #### U A #### [facility] CLIA [id number] [address] [place] Leukocyte esterase Test strip Ql (U) Negative Normal Negative, 25 Loraine/mL [facility] Comment on above: Order Comment: Speci men Type: URINE SPECIMEN Ordering Facility: [facility] Address: [address] [place] [address] Performed By: #### U A #### [facility] CLIA [id number] [address] [place] [address] [place] Nitrite Ql (U) Negative Normal Negative [facility] Comment on above: Order Comment: Speci men Type: URINE SPECIMEN Ordering Facility: [facility] Address: [address] [place], [place] [address] Performed By: #### U A #### [facility] CLIA [id number] [address] [place] [address] [place] pH (U) 5.5 [pH] Normal 5.0-8.0 [facility] Comment on above: Order Comment: Speci men Type: URINE SPECIMEN Ordering Facility: [facility] Address: [address] [place], [place] [address] Performed By: #### U A #### [facility] CLIA [id number] [address] [place] [address] [place] Protein (U) [Mass/Vol] Negative Normal Trace , Negative [facility] Comment on above: Order Comment: Speci men Type: URINE SPECIMEN Ordering Facility: [facility] Address: [address] [place], [place] [address] Performed By: #### U A #### [facility] CLIA [id number] [address] [place] Specific gravity (U) [Rel density] 1.014 Normal 1.005-1.030 [facility] Comment on above: Order Comment: Speci men Type: URINE SPECIMEN Ordering Facility: [facility] Address: [address] [place] [address] Performed By: #### U A #### [facility] CLIA [id number] [address] [place] [address] [place] Urobilinogen Ql (U) 1+ Abnormal Negative [facility] Comment on above: Order Comment: Speci men Type: URINE SPECIMEN Ordering Facility: [facility] Address: [address] [place] [address] Performed By: #### U A #### [facility] CLIA [id number] [address] [place] [address] OF [place] FK506 (TACROLIMUS) WHOLE BLO ODon 01-29-2022 Tacrolimus (FK506), Blood 11.1 ng/mL Normal 2.0-20.0 [facility] Comment on above: Result Comment: Trou gh (immediately following transplant) 15.0 . Trough (steady state, 2 weeks or more after transplant): 3.0 - 8.0 . Performed by LC-MS/MS technology. Performed By: #### F K506T ####[facility] [address] [place], [place] [address]Dr. Farhat Leal PHOSPHORUSon 01-26-2022 Phosphate [Mass/Vol] 4.1 mg/dL Normal 2.6-4.7 [facility] Comment on above: Performed By: #### C CARA PHOS ####[facility] [address] [place], [place] [address]DrSkylar Leal PROF 14(COMP METB)on 022 Albumin [Mass/Vol] 2.1 g/dL Critically low 3.4-5.0 [facility] Comment on above: Performed By: #### C CARA PHOS ####[facility] [address] [place], [place] [address]DrSkylar Leal Albumin/Globulin [Mass ratio] 0.6 {ratio} Normal [facility] Comment on above: Performed By: #### C CARA, PHOS ####[facility] Rufx[address] [place] [address]Dr. Farhat Leal ALP [Catalytic activity/Vol] 89 U/L Normal 46-116 [facility] Comment on above: Performed By: #### C CARA, PHOS ####[facility] J[address]akoqbbf[address] [place], [place] [address]Dr. Farhat Leal ALT [Catalytic activity/Vol] 27 U/L Normal 16-63 [facility] Comment on above: Performed By: #### C CARA, PHOS ####[facility] Gdiptwgjdm9[address] [place], [place] [address]Dr. Farhat Leal Anion gap [Moles/Vol] 12.3 mmol/L Normal [facility] Comment on above: Performed By: #### C CARA, PHOS ####[facility] Lzjczwbccq[address] [place], [place] [address]Dr. Farhat Leal AST [Catalytic activity/Vol] 53 U/L Critically high 15-37 [facility] Comment on above: Performed By: #### C CARA, PHOS ####[facility] Eqzufkeefq[address] [place], [place] [address]Dr. Farhat Leal Bilirubin [Mass/Vol] 0.6 mg/dL Normal 0.2-1.0 [facility] Comment on above: Performed By: #### C CARA, PHOS ####[facility] Rtgxnjsfzb[address] [place], [place] [address]Dr. Farhat Leal Calcium [Mass/Vol] 8.0 mg/dL Critically low 8.5-10.1 [facility] Comment on above: Performed By: #### C CARA, PHOS ####[facility] Xgmbkfchgn[address] [place], [place] [address]Dr. Farhat Elvis Chloride [Moles/Vol] 97 mmol/L Critically low 98-107 [facility] Comment on above: Performed By: #### C CARA, PHOS ####[facility] T[address]ierbbl[address] [place] [address]Dr. Farhat Leal CO2 [Moles/Vol] 26.6 mmol/L Normal 21.0-32.0 [facility] Comment on above: Performed By: #### C CARA, PHOS ####[facility] Nvjnefjypv[address] [place] [address]Dr. Farhat Leal Creatinine [Mass/Vol] 1.03 mg/dL Normal 0.70-1.30 [facility] Comment on above: Performed By: #### C CARA, PHOS ####[facility] Zqpmyqrrtt2[address] [place] [address]Dr. Farhat Leal EGFR-AF GHANAIAN >60 Normal >=60 [facility] Comment on above: Performed By: #### C CARA, PHOS ####[facility] Onnmgabgnj[address] [place], [place] [address]Dr. Farhat Leal EGFR-NON AF GHANAIAN >60 Normal >=60 [facility] Comment on above: Performed By: #### C CARA, PHOS ####[facility] Bjsasvlite88[address] [place], [place] [address]Dr. Farhat Leal Globulin (S) [Mass/Vol] 3.7 g/dL Normal [facility] Comment on above: Performed By: #### C CARA, PHOS ####[facility] Zztlhmnmuj6[address] [place], [place] [address]Dr. Farhat Leal Glucose [Mass/Vol] 287 mg/dL Critically high 74-106 T [facility] Comment on above: Performed By: #### C CARA, PHOS ####[facility] [address]oy[address]afdyd[address] [place] [address]Dr. Farhat Leal Potassium [Moles/Vol] 3.9 mmol/L Normal 3.5-5.1 [facility] Comment on above: Performed By: #### C CARA, PHOS ####[facility] Dvblbxkxll5[address] [place] [address]Dr. Farhat Leal Protein [Mass/Vol] 5.8 g/dL Critically low 6.4-8.2 Th [facility] Comment on above: Performed By: #### C CARA, PHOS ####[facility] Pbsofwreoj299[address] [place], [place] [address]Ts. Farhat Leal Sodium [Moles/Vol] 132 mmol/L Critically low 136-145 Th [facility] Comment on above: Performed By: #### C CARA, PHOS ####[facility] Lsryjjulct8896 [place], [place] [address]Wf. Farhat Leal Urea nitrogen [Mass/Vol] 23.0 mg/dL Critically high 7.0-18.0 [facility] Comment on above: Performed By: #### C CARA, PHOS ####[facility] Krwmpqwdup5[address] [place] [phone]. Farhat Leal Urea nitrogen/Creatinine [Mass ratio] 22.3 mg/mg Normal [facility] Comment on above: Performed By: #### C CARA, PHOS ####[facility] Mxvtzlwfnt9[address] [place] [phone]. Farhat Leal FK506 (TACROLIMUS) WHOLE BLO ODon 01-21-2022 Tacrolimus (FK506), Blood 12.2 ng/mL Normal 2.0-20.0 [facility] Comment on above: Result Comment: Trou gh (immediately following transplant) 15.0 . Trough (steady state, 2 weeks or more after transplant): 3.0 - 8.0 . Performed by LC-MS/MS technology. Performed By: #### F K506T ####[facility] Nmxyyklmee[address] [place] [phone]. Farhat Leal ACID FAST SMEAR AND CXon Acid Fast Culture Negative Normal The [facility] Comment on above: Result Comment: No a abdiel fast bacilli isolated after 6 weeks. Performed By: #### A FB ####[facility] Jtjvnebgev[address] [place] [phone]. Farhat Leal Acid Fast Smear Negative Normal [facility] Comment on above: Performed By: #### A FB ####[facility] Sadqutymnp8376 [place] [phone]. Farhat Leal [employer] Specimen Processing Tissue Grinding Normal [facility] Comment on above: Performed By: #### A FB ####[facility] Acp[address]yyuptp[address] [place], [place] [address]VsSkylar Leal Sonya 01-20-2022 DIAMANTEN Telephone (KIMBERLY) ALEX ALMONTE ([id number]) 1945 M TRN Date Time Provider Department 01/20/22 VAN OLIVAREZ During your visit today, we recorded the following information about you: Van Olivarez APRN.DIAMANTE 01/20/2022 1:14 PM Signed Labs noted from yesterday. Pt is currently residing at [facility], I spoke with the Nurse, the [...] by mouth daily with lunch. 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*11/29/2021 Malnutrition of moderate degree (HCC) [E44.0] 12/01/2021 Dermatitis associated with moisture [L30.8] 12/04/2021 Encounter Status:Closed by VAN OLIVAREZ on 01/20/22 Normal [facility] Walter PROF 14(COMP METB)on 022 Albumin [Mass/Vol] 1.9 g/dL Critically low 3.4-5.0 Th e [facility] Comment on above: Performed By: #### C MP ####[facility] Rdsa[address]zwsj[address] [place] [address]DrSkylar Leal Albumin/Globulin [Mass ratio] 0.5 {ratio} Normal [facility] Comment on above: Performed By: #### C MP ####[facility] Xeeznqjnai1166 [place] [phone]. Farhat Leal ALP [Catalytic activity/Vol] 78 U/L Normal 46-116 [facility] Comment on above: Performed By: #### C MP ####[facility] Igvjumpcdy0561 [place] [phone]. Farhat Leal ALT [Catalytic activity/Vol] 22 U/L Normal 16-63 [facility] Comment on above: Performed By: #### C MP ####[facility] Szrpvduajn4712 [place] [address]Dr. Farhat Leal Anion gap [Moles/Vol] 8.0 mmol/L Normal [facility] Comment on above: Performed By: #### C MP ####[facility] Xijskwdjmb1193 [place] [address]Dr. Farhat Leal AST [Catalytic activity/Vol] 92 U/L Critically high 15-37 [facility] Comment on above: Performed By: #### C MP ####[facility] Lttqagprpg6711 [place] [address]Dr. Farhat Leal Bilirubin [Mass/Vol] 0.7 mg/dL Normal 0.2-1.0 [facility] Comment on above: Performed By: #### C MP ####[facility] Hvaylufcpp4[address] [place] [address]Dr. Farhat Leal Calcium [Mass/Vol] 7.8 mg/dL Critically low 8.5-10.1 Th [facility] Comment on above: Performed By: #### C MP ####[facility] Dctknyjxnx8272 [place] [address]Dr. Farhat Leal Chloride [Moles/Vol] 99 mmol/L Normal 98-107 [facility] Comment on above: Performed By: #### C MP ####[facility] Vlocfwipbl8334 [place] [address]Dr. Farhat Leal CO2 [Moles/Vol] 30.9 mmol/L Normal 21.0-32.0 [facility] Comment on above: Performed By: #### C MP ####[facility] Tgyhwurfeq8912 [place] [address]Dr. Madelynlorri Leal Creatinine [Mass/Vol] 0.95 mg/dL Normal 0.70-1.30 [facility] Comment on above: Performed By: #### C MP ####[facility] Luxoxrfirc[address] [place], [place] [address]Dr. Farhat Elvis EGFR-AF GHANAIAN >60 Normal >=60 [facility] Comment on above: Performed By: #### C MP ####[facility] Hwetvouqey[address] [place], [place] [address]Dr. Farhat Leal EGFR-NON AF GHANAIAN >60 Normal >=60 [facility] Comment on above: Performed By: #### C MP ####[facility] Nktcmtjfpf[address] [place], [place] [address]Dr. Farhat Leal Globulin (S) [Mass/Vol] 3.9 g/dL Normal [facility] Comment on above: Performed By: #### C MP ####[facility] Ytwzwstnmk84[address] [place], [place] [address]Dr. Farhat Leal Glucose [Mass/Vol] 124 mg/dL Critically high 74-106 T [facility] Comment on above: Performed By: #### C MP ####[facility] Ycivnhspzm090[address] [place], [place] [address]Dr. Farhat Leal Potassium [Moles/Vol] 5.9 mmol/L Critically high 3.5-5.1 [facility] Comment on above: Performed By: #### C MP ####[facility] Wxhkbjpuqu7[address] [place], [place] [address]Dr. Farhat Leal Protein [Mass/Vol] 5.8 g/dL Critically low 6.4-8.2 Th [facility] Comment on above: Performed By: #### C MP ####[facility] Uovhnaltdo12[address] [place], [place] [address]Dr. Farhat Leal Sodium [Moles/Vol] 132 mmol/L Critically low 136-145 Th [facility] Comment on above: Performed By: #### C MP ####[facility] Grvdwepfwy05[address] [place], [place] [address]Dr. Farhat Leal Urea nitrogen [Mass/Vol] 18.0 mg/dL Normal 7.0-18.0 [facility] Comment on above: Performed By: #### C MP ####[facility] M[address]qpqpcjd3122 [place], [place] [address]Io. Farhat Leal Urea nitrogen/Creatinine [Mass ratio] 18.9 mg/mg Normal [facility] Comment on above: Performed By: #### C MP ####[facility] Mcockpmxdn9122 [place] [phone]. Farhat Leal INR (POC)on 01-12-2022 INR Coag (PPP) [Relative time] 2.6 {INR} High 0.8 - 1.2 [facility] Internal Quality Check Acceptable Cl [facility] ACID FAST SMEAR AND CXon Acid Fast Culture Negative Normal [facility] Comment on above: Result Comment: No a abdiel fast bacilli isolated after 6 weeks. Performed By: #### A FB ####[facility] Lpsgqlaccb[address] [place], [place] [id number]. Farhat Leal Acid Fast Smear Negative Normal [facility] Comment on above: Performed By: #### A FB ####[facility] Quhlnokmss[address] [place], [place] [address]Dr. Farhat Leal [employer] Specimen Processing Direct Inoculation Normal [facility] Comment on above: Performed By: #### A FB ####[facility] Okvhbffbvz[address] [place] [phone]. Madelynlorri Leal ACID FAST SMEAR AND CXon Acid Fast Culture Negative Normal [facility] Comment on above: Result Comment: No a abdiel fast bacilli isolated after 6 weeks. Performed By: #### A FB ####[facility] Yrydnkkwvw0515 [place] [phone]. Farhat Leal Acid Fast Smear Negative Normal [facility] Comment on above: Performed By: #### A FB ####[facility] Bbazlnfnhk4442 [place] [phone]. Farhat Leal [employer] Specimen Processing Tissue Grinding Normal [facility] Comment on above: Performed By: #### A FB ####[facility] Ebfpkgafgn9708 [place] [phone]. Farhat Leal FUNGAL CULTUREon 01-02-2022 Fungus (Mycology) Culture Final report Normal [facility] Comment on above: Performed By: #### C XFUN ####[facility] Bsgviaalrp024[address] [place], [place] [address]Dr. Farhat Leal Fungus Stain Final report Normal [facility] Comment on above: Performed By: #### C XFUN ####[facility] Zxcxkutnlx9979 [place] [address]Dr. Farhat Leal Result 1 Comment Normal [facility] Comment on above: Result Comment: ANNI/ Calcofluor preparation: no fungus observed. Performed By: #### C XFUN ####[facility] Wbgoiwlvbq25[address] [place], [place] [address]Dr. Farhat Leal Result Comment: No y east or mold isolated after 4 weeks. FK506 (TACROLIMUS) WHOLE BLO ODon 12-31-2021 Tacrolimus (FK506), Blood 7.7 ng/mL Normal 2.0-20.0 [facility] Comment on above: Result Comment: Trou gh (immediately following transplant) 15.0 . Trough (steady state, 2 weeks or more after transplant): 3.0 - 8.0 . Performed by LC-MS/MS technology. Performed By: #### F K506T ####[facility] Bozizcyqdh[address] [place], [place] [address]Dr. Faraht Leal HEMOGRAM AND PLATELon 2021 Hematocrit (Bld) [Volume fraction] 27.1 % Critically low 42.0-54.0 [facility] Comment on above: Performed By: #### H H ####[facility] Zcngmvjrna[address] [place], [place] [address]Dr. Farhat Leal Hemoglobin (Bld) [Mass/Vol] 8.7 g/dL Critically low 14.0-18.0 [facility] Comment on above: Performed By: #### H H ####[facility] Aswyeypjan17[address] [place], [place] [address]Dr. Farhat Leal MCH (RBC) [Entitic mass] 30.3 pg Normal 25.9-34.0 [facility] Comment on above: Performed By: #### H H ####[facility] Jgixzsnhkn30[address] [place] [address]Dr. Farhat Leal MCHC (RBC) [Mass/Vol] 32.1 g/dL Normal 29.9-35.2 [facility] Comment on above: Performed By: #### H H ####[facility] Dnkfsyfcep8115 [place] [phone]. Farhat Elvis MCV (RBC) [Entitic vol] 94.4 fL Critically high 80.0-94.0 [facility] Comment on above: Performed By: #### H H ####[facility] Rjulwkilwr9722 [place] [address]Dr. Farhat Elvis PLT 355 103/ul Normal 150-450 [facility] Comment on above: Performed By: #### H H ####[facility] Xkosaerdqf1566 [place] [address]Dr. Farhat Leal RBC 2.87 106/ul Critically low 4.70-6.10 [facility] Comment on above: Performed By: #### H H ####[facility] Xdrqtmiuxp0611 [place] [address]Dr. Farhat Elvis WBC 6.0 103/ul Normal 4.0-11.0 [facility] Comment on above: Performed By: #### H H ####[facility] Fmgbshfnmh9792 [place] [phone]. Farhat Leal PHOSPHORUSon 12-29-2021 Phosphate [Mass/Vol] 2.5 mg/dL Critically low 2.6-4.7 [facility] Comment on above: Performed By: #### P HOS, CMP ####[facility] Icpsqwojgi9488 [place] [address]Dr. Farhat Leal PROF 14(COMP METB)on 022 Albumin [Mass/Vol] 1.7 g/dL Critically low 3.4-5.0 [facility] Comment on above: Performed By: #### P HOS, CMP ####[facility] Jxgqayqkix9835 [place] [address]Dr. Farhat Leal Albumin/Globulin [Mass ratio] 0.5 {ratio} Normal [facility] Comment on above: Performed By: #### P HOS, CMP ####[facility] Nnzaqkmejc13[address] [place], [place] [address]Dr. Farhat Leal ALP [Catalytic activity/Vol] 78 U/L Normal 46-116 [facility] Comment on above: Performed By: #### P HOS, CMP ####[facility] Ztcmagwwbs3[address] [place], [place] [address]Dr. Farhat Leal ALT [Catalytic activity/Vol] 12 U/L Critically low 16-63 [facility] Comment on above: Performed By: #### P HOS, CMP ####[facility] Bflcbyjzeu76[address] [place], [place] [address]Dr. Farhat Leal Anion gap [Moles/Vol] 5.1 mmol/L Normal [facility] Comment on above: Performed By: #### P HOS, CMP ####[facility] Dvrecchkmf0[address] [place], [place] [address]Dr. Farhat Leal AST [Catalytic activity/Vol] 22 U/L Normal 15-37 [facility] Comment on above: Performed By: #### P HOS, CMP ####[facility] Heqvleufiz026[address] [place], [place] [address]Dr. Farhat Leal Bilirubin [Mass/Vol] 0.6 mg/dL Normal 0.2-1.0 [facility] Comment on above: Performed By: #### P HOS, CMP ####[facility] Uhonbnjcwl36[address] [place], [place] [address]Dr. Farhat Leal Calcium [Mass/Vol] 8.1 mg/dL Critically low 8.5-10.1 Th [facility] Comment on above: Performed By: #### P HOS, CMP ####[facility] Yhqacusesa4[address] [place], [place] [address]Dr. Madelynlorri Elvis Chloride [Moles/Vol] 100 mmol/L Normal 98-107 [facility] Comment on above: Performed By: #### P HOS, CMP ####[facility] Tkvianvvuj3876 [place] [address]Dr. Farhat Leal CO2 [Moles/Vol] 34.2 mmol/L Critically high 21.0-32.0 [facility] Comment on above: Performed By: #### P HOS, CMP ####[facility] Uwrzmexevs55[address] [place], [place] [address]Dr. Farhat Leal Creatinine [Mass/Vol] 0.92 mg/dL Normal 0.70-1.30 [facility] Comment on above: Performed By: #### P HOS, CMP ####[facility] Adnwmkkjej076[address] [place], [place] [address]Dr. Farhat Leal EGFR-AF GHANAIAN >60 Normal >=60 [facility] Comment on above: Performed By: #### P HOS, CMP ####[facility] Ryvllcktti57[address] [place], [place] [address]Dr. Farhat Leal EGFR-NON AF GHANAIAN >60 Normal >=60 [facility] Comment on above: Performed By: #### P HOS, CMP ####[facility] Cvbuxujsmo8[address] [place], [place] [address]Dr. Farhat Leal Globulin (S) [Mass/Vol] 3.3 g/dL Normal [facility] Comment on above: Performed By: #### P HOS, CMP ####[facility] Boendetbpw70[address] [place], [place] [address]Dr. Farhat Leal Glucose [Mass/Vol] 116 mg/dL Critically high 74-106 T [facility] Comment on above: Performed By: #### P HOS, CMP ####[facility] Gewilhexzf28[address] [place], [place] [address]Dr. Farhat Leal Potassium [Moles/Vol] 3.3 mmol/L Critically low 3.5-5.1 [facility] Comment on above: Performed By: #### P HOS, CMP ####[facility] Citcwpujwp6[address] [place], [place] [address]Dr. Farhat Leal Protein [Mass/Vol] 5.0 g/dL Critically low 6.4-8.2 Th e [facility] Comment on above: Performed By: #### P HOS, CMP ####[facility] Bbakcnqyqa4412 [place] [phone]. Farhat Leal Sodium [Moles/Vol] 136 mmol/L Normal 136-145 The [facility] Comment on above: Performed By: #### P HOS, CMP ####[facility] Irkdpjbrdz1531 [place] [address]Dr. Farhat Leal Urea nitrogen [Mass/Vol] 14.0 mg/dL Normal 7.0-18.0 [facility] Comment on above: Performed By: #### P HOS, CMP ####[facility] Peauwgldpe3821 [place] [phone]. Farhat Leal Urea nitrogen/Creatinine [Mass ratio] 15.2 mg/mg Normal [facility] Comment on above: Performed By: #### P HOS, CMP ####[facility] Ivlcylazff14[address] [place], [place] [address]Dr. Farhat Leal PROTIMEon 12-29-2021 INR Coag (PPP) [Relative time] 1.26 {INR} Normal [facility] Comment on above: Performed By: #### P T ####[facility] Mvoohrhkjm[address] [place], [place] [address]Dr. Farhat Leal INR GUIDELINES SEE BELOW Normal [facility] Comment on above: Result Comment: MALINA RED INR: 2.0 - 3.0 CONDITIONS NOT LISTED BELOW 2.5 - 3.5 FOR PROSTHETIC HEART VALVE REPLACEMENT 2.5 - 3.5 RECURRENT THROMBOSIS Performed By: #### P T ####[facility] Lweghdugaf[address] [place], [place] [address]Dr. Farhat Leal PT Coag (PPP) [Time] 13.4 s Critically high 9.0-11.6 [facility] Comment on above: Performed By: #### P T ####[facility] Vpexshoesn3636[address] [place], [place] [address]Dr. Farhat Leal XR MODIFIED BARIUM SWALLOWon 12-25-2021 XR MODIFIED BARIUM SWALLOW Normal [facility] FUNGAL CULTUREon 12-24-2021 Fungus (Mycology) Culture Final report Normal [facility] Comment on above: Performed By: #### C XFUN ####[facility] Vtctomxsqt0623 [place] [address]Dr. Farhat Leal Fungus Stain Final report Normal [facility] Comment on above: Performed By: #### C XFUN ####[facility] Fwnulvynnu06[address] [place], [place] [address]Dr. Farhat Leal Result 1 Comment Normal [facility] Comment on above: Result Comment: ANNI/ Calcofluor preparation: no fungus observed. Performed By: #### C XFUN ####[facility] Euymudxslp5[address] [place], [place] [address]Dr. Farhat Leal Result Comment: No y east or mold isolated after 4 weeks. VANCOMYCIN TROUGHon 12-21-19 VANCOMYCIN TROUGH 14.4 ug/ml Normal 5.0-20.0 [facility] Comment on above: Performed By: #### V ANCT ####[facility] Xqomhhyqdb10[address] [place], [place] [address]Dr. Farhat Leal CBC AUTO DIFFon 12-14-2021 BASO # 0.0 103/ul Normal 0.0-0.1 [facility] Comment on above: Performed By: #### C BC ####[facility] Tzdikgrtmd32[address] [place], [place] [address]Dr. Farhat Leal Basophils/100 WBC (Bld) 0.2 % Normal 0.2-2.0 [facility] Comment on above: Performed By: #### C BC ####[facility] Qgbprzrmty9[address] [place], [place] [address]Dr. Farhat Leal EO # 0.2 103/ul Normal 0.0-0.7 [facility] Comment on above: Performed By: #### C BC ####[facility] G[address]phxtssdl[address] [place], [place] [address]Dr. Farhat Leal Eosinophils/100 WBC (Bld) 2.1 % Normal 0.9-7.0 [facility] Comment on above: Performed By: #### C BC ####[facility] Ayauyiazwq23[address] [place], [place] [address]Dr. Farhat Leal Erythrocyte distribution width (RBC) [Ratio] 18.2 % Critically high 11.0-15.0 [facility] Comment on above: Performed By: #### C BC ####[facility] Ktbbhclcup8147 [place] [address]Dr. Farhat Leal Hematocrit (Bld) [Volume fraction] 25.8 % Critically low 42.0-54.0 [facility] Comment on above: Performed By: #### C BC ####[facility] Wzemcdudjh6410 [place] [address]Dr. Farhat Leal Hemoglobin (Bld) [Mass/Vol] 8.0 g/dL Critically low 14.0-18.0 [facility] Comment on above: Performed By: #### C BC ####[facility] Lfcciwzjuo[address] [place], [place] [address]Dr. Farhat Leal IG # 0.08 10e3/ul Critically high 0.00-0.03 [facility] Comment on above: Performed By: #### C BC ####[facility] C[address]jpjwklcn[address] [place], [place] [address]Dr. Farhat Leal IG % 0.7 % Critically high 0.0-0.5 [facility] Comment on above: Performed By: #### C BC ####[facility] Bssoluehzz[address] [place], [place] [address]DrSkylar Leal LYMPH # 0.9 103/ul Critically low 1.2-3.8 The [facility] Comment on above: Performed By: #### C BC ####[facility] Jdrvnfpobc[address] [place], [place] [address]DrSkylar Leal Lymphocytes/100 WBC (Bld) 8.7 % Critically low 20.5-60.0 [facility] Comment on above: Performed By: #### C BC ####[facility] Xxzlpstvmf[address] [place], [place] [address]DrSkylar Leal MANUAL DIFF REQ NO Normal [facility] Comment on above: Performed By: #### C BC ####[facility] [address]rubchu[address] [place] [address]DrSkylar Leal MCH (RBC) [Entitic mass] 30.0 pg Normal 25.9-34.0 [facility] Comment on above: Performed By: #### C BC ####[facility] Zntucaftga56[address] [place] [id number]. Madelynlorri Elvis MCHC (RBC) [Mass/Vol] 31.0 g/dL Normal 29.9-35.2 [facility] Comment on above: Performed By: #### C BC ####[facility] O[address]qgsjrey[address] [place] [address]DrSkylar Leal MCV (RBC) [Entitic vol] 96.6 fL Critically high 80.0-94.0 [facility] Comment on above: Performed By: #### C BC ####[facility] Ygeflsqtcv[address] [place], [place] [address]DrSkylar Leal MONO # 0.7 103/ul Normal 0.3-0.8 [facility] Comment on above: Performed By: #### C BC ####[facility] Ghxpngoybf079[address] [place], [place] [address]Dr. Farhat Leal Monocytes/100 WBC (Bld) 6.7 % Normal 1.7-12.0 [facility] Comment on above: Performed By: #### C BC ####[facility] Yrmpmdlday3[address] [place], [place] [address]Dr. Farhat Leal NEUT # 8.8 103/ul Critically high 1.4-6.5 [facility] Comment on above: Performed By: #### C BC ####[facility] Uftrlsjaxq5[address] [place], [place] [address]DrSkylar Leal Neutrophils/100 WBC (Bld) 81.6 % Critically high 43.0-75.0 [facility] Comment on above: Performed By: #### C BC ####[facility] Kncylfqbim022[address] [place], [place] [address]DrSkylar Leal Platelet mean volume (Bld) [Entitic vol] 10.5 fL Normal 9.5-13.5 [facility] Comment on above: Performed By: #### C BC ####[facility] Lretzgnqis024[address] [place], [place] [address]Dr. Farhat Leal PLT 285 103/ul Normal 150-450 [facility] Comment on above: Performed By: #### C BC ####[facility] Hygagqjugt[address] [place] [address]Dr. Farhat Leal RBC 2.67 106/ul Critically low 4.70-6.10 [facility] Comment on above: Performed By: #### C BC ####[facility] Szuxlriida[address] [place] [address]Dr. Farhat Leal WBC 10.7 103/ul Normal 4.0-11.0 [facility] Comment on above: Performed By: #### C BC ####[facility] Joaftjwctb0352 [place] [address]Dr. Farhat Leal PROF CHEM 8 (BAS METB)on Anion gap [Moles/Vol] 12.4 mmol/L Normal [facility] Comment on above: Performed By: #### B MP ####[facility] Jqgeufukcu6[address] [place], [place] [address]Dr. Farhat Leal Calcium [Mass/Vol] 7.8 mg/dL Critically low 8.5-10.1 [facility] Comment on above: Performed By: #### B MP ####[facility] Wtegzxpasl8[address] [place], [place] [address]Dr. Farhat Leal Chloride [Moles/Vol] 102 mmol/L Normal 98-107 [facility] Comment on above: Performed By: #### B MP ####[facility] Agubremfpt75[address] [place], [place] [address]Dr. Farhat Leal CO2 [Moles/Vol] 28.1 mmol/L Normal 21.0-32.0 [facility] Comment on above: Performed By: #### B MP ####[facility] Puopmpgavw37[address] [place], [place] [address]Dr. Farhat Leal Creatinine [Mass/Vol] 1.24 mg/dL Normal 0.70-1.30 [facility] Comment on above: Performed By: #### B MP ####[facility] Tdfnsukjtr37[address] [place], [place] [address]Dr. Farhat Leal EGFR-AF GHANAIAN >60 Normal >=60 [facility] Comment on above: Performed By: #### B MP ####[facility] Zwppuhkpon38[address] [place] [phone]. Farhat Leal EGFR-NON AF GHANAIAN 57 mL/min/1.73m2 Critically low >=60 [facility] Comment on above: Performed By: #### B MP ####[facility] Fqczectqby6607 [place] [phone]. Farhat Leal Glucose [Mass/Vol] 296 mg/dL Critically high 74-106 [facility] Comment on above: Performed By: #### B MP ####[facility] Skvjosltgh2878 [place] [address]Dr. Farhat Leal Potassium [Moles/Vol] 3.5 mmol/L Normal 3.5-5.1 [facility] Comment on above: Performed By: #### B MP ####[facility] Kihldyrage8526[address] [place], [place] [address]Dr. Farhat Leal Sodium [Moles/Vol] 139 mmol/L Normal 136-145 [facility] Comment on above: Performed By: #### B MP ####[facility] Icikkhkifi189[address] [place], [place] [address]Dr. Farhat Leal Urea nitrogen [Mass/Vol] 27.0 mg/dL Critically high 7.0-18.0 [facility] Comment on above: Performed By: #### B MP ####[facility] Dektvpypgl[address] [place] [address]Dr. Farhat Leal Urea nitrogen/Creatinine [Mass ratio] 21.8 mg/mg Normal [facility] Comment on above: Performed By: #### B MP ####[facility] Aptsxlxcpr7351 [place] [phone]. Farhat Leal PROTIMEon 12-14-2021 INR Coag (PPP) [Relative time] 3.36 {INR} Normal [facility] Comment on above: Performed By: #### P T ####[facility] [address]xpodwcp[address] [place] [address]Dr. Farhat Leal INR GUIDELINES SEE BELOW Normal [facility] Comment on above: Result Comment: MALINA RED INR: 2.0 - 3.0 CONDITIONS NOT LISTED BELOW 2.5 - 3.5 FOR PROSTHETIC HEART VALVE REPLACEMENT 2.5 - 3.5 RECURRENT THROMBOSIS Performed By: #### P T ####[facility] Uwszxach[address] [place], [place] [address]Rl. Farhat Leal PT Coag (PPP) [Time] 33.5 s Critically high 9.0-11.6 [facility] Comment on above: Performed By: #### P T ####[facility] Rgjaohzkmh22[address] [place], [place] [address]Zg. Farhat Leal XR CHEST 1 Von 12-14-2021 XR CHEST 1 V Normal [facility] No Panel Informationon 12-01 BLANK _ [facility] Implant Date 04/22/2012 [facility] CHECKon AMS Duration (ms) 5 of 8 [facility] AMS Fallback Rate (bpm) DDIR [facility] AV Delay Adaptive Paced Minimum (ms) 300 ms [facility] AV Delay Adaptive Rate Maximum (bpm) 130 {beats}/min [facility] AV Delay Adaptive Rate Minimum (bpm) 70 {beats}/min [facility] AV Delay Adaptive Sensed Minimum (ms) 300 ms [facility] AV Delay Paced (ms) 300 ms [facility] AV Delay Sensed (ms) 300 ms [facility] Jaciel LV Pacing Polarity Unknown [facility] Jaciel LV Sensing Polarity Unknown [facility] Jaciel RA Pacing Amplitude (volts) 2.4 V [facility] Jaciel RA Pacing Polarity BI [facility] Jaciel RA Pacing Pulse Width (ms) 0.4 ms [facility] Jaciel RA Sensing Amplitude (mvolts) AUTO [facility] Jaciel RA Sensing Blanking Period (ms) 56 ms [facility] Jaciel RA Sensing Polarity BI [facility] Jaciel RA Sensing Refractory Period (ms) AUTO [facility] Jaciel RV Pacing Amplitude (volts) 3.4 V [facility] Jaciel RV Pacing Polarity BI [facility] Jaciel RV Pacing Pulse Width (ms) 0.4 ms [facility] Jaciel RV Sensing Amplitude (mvolts) AUTO [facility] Jaciel RV Sensing Blanking Period (ms) 30 ms [facility] Jaciel RV Sensing Polarity BI [facility] Jaciel RV Sensing Refractory Period (ms) 250 ms [facility] Hysteresis Rate (bpm) 60 {beats}/min [facility] Lead1 Mfg SUZETTE [facility] Lead2 Mfg SUZETTE [facility] Location RA [facility] Location RV [facility] Lower Rate (bpm) 60 {beats}/min [facility] Max Sensor Rate (bmp) 130 {beats}/min [facility] Model 864563 Monika CORTEZ [facility] Model 745293 [facility] Model [id number] [facility] Pacemaker Dependent? NO [facility] PM-Device Mfg BIO [facility] PM-PMT Intervention ON [facility] PM-PVC Intervention ON [facility] PM-Rate Modulation Acceleration Reaction 4 s [facility] PM-Rate Modulation Deceleration 0.5 m [facility] PM-Rate Modulation [place] 23 [facility] PM-Rate Modulation Threshold Medium [facility] RA Bipolar Impedance ohms 448 ohm [facility] Rhythm AF with controlled ventricular rate. [facility] RV Bipolar Impedance ohms 390 ohm [facility] Serial Number [id number] [facility] Serial Number [id number] [facility] Serial Number [id number] [facility] Thresh RA Sensing Amplitude (mvolts) 2.4 mV [facility] Thresh RV Capture Amplitude (volts) 1.8 V [facility] Thresh RV Capture Duration (ms) 0.4 ms [facility] Thresh RV Sensing Amplitude (mvolts) 2.4 mV [facility] Tracking Rate (bpm) 160 {beats}/min [facility] BNPon 11-28-2021 Natriuretic peptide B (Bld) [Mass/Vol] 91514.0 pg/mL Critically high <=1,800.0 [facility] Comment on above: Performed By: #### C MP, BNP, CRP ####[facility] [address]rlodc[address] [place] [address]Dr. Farhat Leal CBC AUTO DIFFon 11-28-2021 BASO # 0.0 103/ul Normal 0.0-0.1 [facility] Comment on above: Performed By: #### C BC ####[facility] [address]zzeksnmu[address] [place] [address]Dr. Farhat Leal Basophils/100 WBC (Bld) 0.3 % Normal 0.2-2.0 [facility] Comment on above: Performed By: #### C BC ####[facility] A[address]qypjqzvd65[address] [place] [phone]. Farhat Leal EO # 0.1 103/ul Normal 0.0-0.7 [facility] Comment on above: Performed By: #### C BC ####[facility] Kkflfnxiog3799 [place] [phone]. Farhat Leal Eosinophils/100 WBC (Bld) 1.0 % Normal 0.9-7.0 [facility] Comment on above: Performed By: #### C BC ####[facility] Scszvfsluh7[address] [place], [place] [address]Dr. Farhat Leal Erythrocyte distribution width (RBC) [Ratio] 14.0 % Normal 11.0-15.0 [facility] Comment on above: Performed By: #### C BC ####[facility] Irbxkmmmxo646[address] [place], [place] [address]Dr. Farhat Leal Hematocrit (Bld) [Volume fraction] 27.6 % Critically low 42.0-54.0 [facility] Comment on above: Performed By: #### C BC ####[facility] Metwshpbqa46[address] [place], [place] [address]Dr. Farhat Leal Hemoglobin (Bld) [Mass/Vol] 9.0 g/dL Critically low 14.0-18.0 [facility] Comment on above: Performed By: #### C BC ####[facility] Ylgkkfyjun24[address] [place], [place] [address]Dr. Farhat Leal IG # 0.12 10e3/ul Critically high 0.00-0.03 [facility] Comment on above: Performed By: #### C BC ####[facility] Omfoivgghc55[address] [place], [place] [address]Dr. Madelynlorri Leal IG % 1.0 % Critically high 0.0-0.5 [facility] Comment on above: Performed By: #### C BC ####[facility] Zlwrhfjzfx[address] [place], [place] [address]Dr. Farhat Leal LYMPH # 1.2 103/ul Normal 1.2-3.8 [facility] Comment on above: Performed By: #### C BC ####[facility] Irxekxxmto9940 [place] [phone]. Farhat Elvis Lymphocytes/100 WBC (Bld) 9.9 % Critically low 20.5-60.0 [facility] Comment on above: Performed By: #### C BC ####[facility] Dtmvaziztb1982 [place] [phone]. Farhat Leal MANUAL DIFF REQ NO Normal [facility] Comment on above: Performed By: #### C BC ####[facility] Zllklsujmp8801 [place] [phone]. Farhat Leal MCH (RBC) [Entitic mass] 30.0 pg Normal 25.9-34.0 [facility] Comment on above: Performed By: #### C BC ####[facility] Ietxngadmu1564[address] [place], [place] [address]Dr. Farhat Leal MCHC (RBC) [Mass/Vol] 32.6 g/dL Normal 29.9-35.2 [facility] Comment on above: Performed By: #### C BC ####[facility] Qyajhgwlwm[address] [place], [place] [address]Dr. Farhat Leal MCV (RBC) [Entitic vol] 92.0 fL Normal 80.0-94.0 [facility] Comment on above: Performed By: #### C BC ####[facility] Gqsifljaso[address] [place], [place] [address]Dr. Farhat Leal MONO # 1.1 103/ul Critically high 0.3-0.8 [facility] Comment on above: Performed By: #### C BC ####[facility] Msuasbrvun0[address] [place], [place] [address]Dr. Farhat Leal Monocytes/100 WBC (Bld) 9.3 % Normal 1.7-12.0 [facility] Comment on above: Performed By: #### C BC ####[facility] Sibuizulqu[address] [place], [place] [address]Dr. Farhat Leal NEUT # 9.3 103/ul Critically high 1.4-6.5 [facility] Comment on above: Performed By: #### C BC ####[facility] Tyadrlgetc0696 [place], [place] [address]Sz. Farhat Leal Neutrophils/100 WBC (Bld) 78.5 % Critically high 43.0-75.0 [facility] Comment on above: Performed By: #### C BC ####[facility] Xbuixgxnfz2676 [place], [place] [address]Yq. Farhat Leal Platelet mean volume (Bld) [Entitic vol] 9.6 fL Normal 9.5-13.5 [facility] Comment on above: Performed By: #### C BC ####[facility] Vcfdrcjzbn8491 [place] [phone]. Farhat Elvis PLT 357 103/ul Normal 150-450 [facility] Comment on above: Performed By: #### C BC ####[facility] Yhqhajiucg0585 [place] [phone]. Farhat Elvis RBC 3.00 106/ul Critically low 4.70-6.10 [facility] Comment on above: Performed By: #### C BC ####[facility] Lgtrdrhouw3956 [place] [phone]. Farhat Leal WBC 11.8 103/ul Critically high 4.0-11.0 [facility] Comment on above: Performed By: #### C BC ####[facility] Vgaagrxqyb8850 [place], [place] [address]Wv. Farhat Leal CRPon 11-28-2021 CRP 20.9 mg/dL Critically high <=1.0 [facility] Comment on above: Performed By: #### C MP, BNP, CRP ####[facility] Zhhdlczhmo9326 [place], [place] [address]Jm. Farhat Elvis CULTURE OTHERon 11-28-2021 CULTURE OTHER Normal [facility] [place] [facility] Comment on above: Performed By: #### O THCX ####[facility] Byfyjwbcaj3125 [place] [phone]. Farhat Leal PROF 14(COMP METB)on 022 Albumin [Mass/Vol] 1.4 g/dL Critically low 3.4-5.0 [facility] Comment on above: Performed By: #### C MP, BNP, CRP ####[facility] Zfnhzgnbdg6107 [place] [address]Dr. Farhat Leal Albumin/Globulin [Mass ratio] 0.4 {ratio} Normal [facility] Comment on above: Performed By: #### C MP, BNP, CRP ####[facility] Zbtnddgdwg7561 [place] [address]Dr. Farhat Leal ALP [Catalytic activity/Vol] 82 U/L Normal 46-116 [facility] Comment on above: Performed By: #### C MP, BNP, CRP ####[facility] Wlnsqxczfi[address] [place], [place] [address]Dr. Farhat Leal ALT [Catalytic activity/Vol] 20 U/L Normal 16-63 [facility] Comment on above: Performed By: #### C MP, BNP, CRP ####[facility] Mpfpkuzsqw9[address] [place], [place] [address]Dr. Farhat Leal Anion gap [Moles/Vol] 13.0 mmol/L Normal [facility] Comment on above: Performed By: #### C MP, BNP, CRP ####[facility] Caqorhcfwe[address] [place], [place] [address]Dr. Farhat Leal AST [Catalytic activity/Vol] 33 U/L Normal 15-37 [facility] Comment on above: Performed By: #### C MP, BNP, CRP ####[facility] Azypgongrg7969[address] [place], [place] [address]Dr. Farhat Leal Bilirubin [Mass/Vol] 0.7 mg/dL Normal 0.2-1.0 [facility] Comment on above: Performed By: #### C MP, BNP, CRP ####[facility] Sjfneungbq80[address] [place], [place] [address]Dr. Farhat Leal Calcium [Mass/Vol] 8.4 mg/dL Critically low 8.5-10.1 [facility] Comment on above: Performed By: #### C MP, BNP, CRP ####[facility] Ytnernugom20[address] [place] [address]Dr. Farhat Leal Chloride [Moles/Vol] 100 mmol/L Normal 98-107 [facility] Comment on above: Performed By: #### C MP, BNP, CRP ####[facility] Rfherfgpcl06[address] [place], [place] [address]Dr. Farhat Leal CO2 [Moles/Vol] 23.7 mmol/L Normal 21.0-32.0 [facility] Comment on above: Performed By: #### C MP, BNP, CRP ####[facility] Dbjrqrcsta67[address] [place], [place] [address]Dr. Farhat Leal Creatinine [Mass/Vol] 1.70 mg/dL Critically high 0.70-1.30 [facility] Comment on above: Performed By: #### C MP, BNP, CRP ####[facility] Kcckyfcdly7[address] [place], [place] [address]Dr. Farhat Elvis EGFR-AF GHANAIAN 48 mL/min/1.73m2 Critically low >=60 [facility] Comment on above: Performed By: #### C MP, BNP, CRP ####[facility] Qisinvuyro88[address] [place], [place] [address]Dr. Farhat Leal EGFR-NON AF GHANAIAN 39 mL/min/1.73m2 Critically low >=60 [facility] Comment on above: Performed By: #### C MP, BNP, CRP ####[facility] Gtzsahjeqp[address] [place], [place] [address]Dr. Farhat Leal Globulin (S) [Mass/Vol] 3.6 g/dL Normal [facility] Comment on above: Performed By: #### C MP, BNP, CRP ####[facility] Fcfknpqtbq7815[address] [place], [place] [address]Dr. Farhat Leal Glucose [Mass/Vol] 232 mg/dL Critically high 74-106 [facility] Comment on above: Performed By: #### C MP, BNP, CRP ####[facility] Dgrdeodgvq47[address] [place], [place] [address]Dr. Farhat Leal Potassium [Moles/Vol] 3.7 mmol/L Normal 3.5-5.1 [facility] Comment on above: Performed By: #### C MP, BNP, CRP ####[facility] Aztmvixqfx1174 [place] [address]Dr. Farhat Leal Protein [Mass/Vol] 5.0 g/dL Critically low 6.4-8.2 [facility] Comment on above: Performed By: #### C MP, BNP, CRP ####[facility] Armlfsbwud2736 [place] [address]Dr. Farhat Leal Sodium [Moles/Vol] 133 mmol/L Critically low 136-145 [facility] Comment on above: Performed By: #### C MP, BNP, CRP ####[facility] Zuplaapqau4[address] [place], [place] [address]Dr. Farhat Leal Urea nitrogen [Mass/Vol] 52.0 mg/dL Critically high 7.0-18.0 [facility] Comment on above: Performed By: #### C MP, BNP, CRP ####[facility] Andvwdcszh5[address] [place], [place] [address]Dr. Farhat Leal Urea nitrogen/Creatinine [Mass ratio] 30.6 mg/mg Normal [facility] Comment on above: Performed By: #### C MP, BNP, CRP ####[facility] Ijrebivqpi46[address] [place], [place] [address]Dr. Farhat Leal PROTIMEon 11-28-2021 INR Coag (PPP) [Relative time] 1.29 {INR} Normal [facility] Comment on above: Performed By: #### P T ####[facility] Cujabyarpl[address] [place], [place] [address]Dr. Farhat Leal INR GUIDELINES SEE BELOW Normal [facility] Comment on above: Result Comment: MALINA RED INR: 2.0 - 3.0 CONDITIONS NOT LISTED BELOW 2.5 - 3.5 FOR PROSTHETIC HEART VALVE REPLACEMENT 2.5 - 3.5 RECURRENT THROMBOSIS Performed By: #### P T ####[facility] Sozaebsbhe[address] [place], [place] [address]Dr. Farhat Leal PT Coag (PPP) [Time] 13.7 s Critically high 9.0-11.6 [facility] Comment on above: Performed By: #### P T ####[facility] Rkrusgzlin9[address] [place] [address]Dr. Farhat Leal SED RATE WESTERGRENon 2021 SED RATE 77 mm/hr Critically high <=20 [facility] Comment on above: Performed By: #### S EDR ####[facility] Ijwyecwjhm5[address] [place], [place] [address]Dr. Farhat Leal XR CHEST 2 Von 11-28-2021 XR CHEST 2 V Normal [facility] BNPon 11-27-2021 Natriuretic peptide B (Bld) [Mass/Vol] 37122.0 pg/mL Critically high <=1,800.0 [facility] Comment on above: Performed By: #### B SOFTWARE SYSTEMS ENGINEER, CMP, CRP ####[facility] Ndywbrcroe88[address] [place], [place] [address]Dr. Farhat Leal CBC AUTO DIFFon 11-27-2021 BASO # 0.0 103/ul Normal 0.0-0.1 [facility] Comment on above: Performed By: #### C BC ####[facility] Tbzvdduhle[address] [place], [place] [address]Dr. Farhat Elvis Basophils/100 WBC (Bld) 0.2 % Normal 0.2-2.0 [facility] Comment on above: Performed By: #### C BC ####[facility] Skbmruuezi50[address] [place], [place] [address]Dr. Farhat Leal EO # 0.2 103/ul Normal 0.0-0.7 [facility] Comment on above: Performed By: #### C BC ####[facility] Zkhokimjnv[address] [place], [place] [address]Dr. Farhat Leal Eosinophils/100 WBC (Bld) 1.9 % Normal 0.9-7.0 [facility] Comment on above: Performed By: #### C BC ####[facility] Caimxxpuhw[address] [place], [place] [address]Dr. Farhat Leal Erythrocyte distribution width (RBC) [Ratio] 13.9 % Normal 11.0-15.0 [facility] Comment on above: Performed By: #### C BC ####[facility] E[address]sgebyar[address] [place] [address]Dr. Farhat Leal Hematocrit (Bld) [Volume fraction] 28.7 % Critically low 42.0-54.0 [facility] Comment on above: Performed By: #### C BC ####[facility] Ngfyswggip6786 [place] [address]Dr. Farhat Leal Hemoglobin (Bld) [Mass/Vol] 9.3 g/dL Critically low 14.0-18.0 [facility] Comment on above: Performed By: #### C BC ####[facility] Voivypulwa75[address] [place] [address]Dr. Farhat Leal IG # 0.14 10e3/ul Critically high 0.00-0.03 [facility] Comment on above: Performed By: #### C BC ####[facility] Kzobxccahe8[address] [place], [place] [address]Dr. Farhat Elvis IG % 1.2 % Critically high 0.0-0.5 [facility] Comment on above: Performed By: #### C BC ####[facility] Rphbamkkmy[address] [place], [place] [address]DrSkyalr Farhat Leal LYMPH # 1.1 103/ul Critically low 1.2-3.8 [facility] Comment on above: Performed By: #### C BC ####[facility] Ochvbckafn8397 [place] [address]DrSkylar Farhat Elvis Lymphocytes/100 WBC (Bld) 9.4 % Critically low 20.5-60.0 [facility] Comment on above: Performed By: #### C BC ####[facility] Hqnvwjxutr13[address] [place] [address]DrSkylar Madelynlorri Leal MANUAL DIFF REQ NO Normal [facility] Comment on above: Performed By: #### C BC ####[facility] Lcwsxunbee0640 [place] [address]DrSkylar Madelynlorri Leal MCH (RBC) [Entitic mass] 29.7 pg Normal 25.9-34.0 [facility] Comment on above: Performed By: #### C BC ####[facility] [address]fwnkoo12[address] [place] [id number]. Farhat Leal MCHC (RBC) [Mass/Vol] 32.4 g/dL Normal 29.9-35.2 [facility] Comment on above: Performed By: #### C BC ####[facility] Ytkaawrfwp4401 [place] [phone] Farhat Elvis MCV (RBC) [Entitic vol] 91.7 fL Normal 80.0-94.0 [facility] Comment on above: Performed By: #### C BC ####[facility] Efnlce[address]oc[address] [place] [id number] Leal MONO # 1.1 103/ul Critically high 0.3-0.8 [facility] Comment on above: Performed By: #### C BC ####[facility] M[address] [place], [place] [address]DrSkylar Leal Monocytes/100 WBC (Bld) 9.7 % Normal 1.7-12.0 [facility] Comment on above: Performed By: #### C BC ####[facility] Prszocvlcq[address] [place], [place] [id number] Joshilorri Elvis NEUT # 9.2 103/ul Critically high 1.4-6.5 [facility] Comment on above: Performed By: #### C BC ####[facility] Xqnznzyvy[address] [place], [place] [id number] Leal Neutrophils/100 WBC (Bld) 77.6 % Critically high 43.0-75.0 [facility] Comment on above: Performed By: #### C BC ####[facility] Sjmwivvcfd4659 [place] [id number] Leal Platelet mean volume (Bld) [Entitic vol] 9.5 fL Normal 9.5-13.5 [facility] Comment on above: Performed By: #### C BC ####[facility] Txvndsqccj5[address] [place] [id number] Leal PLT 375 103/ul Normal 150-450 [facility] Comment on above: Performed By: #### C BC ####[facility] Lppkzepatj6[address] [place] [phone]. Farhat Leal RBC 3.13 106/ul Critically low 4.70-6.10 [facility] Comment on above: Performed By: #### C BC ####[facility] Klgypcnrxc5499 [place] [phone]. Farhat Leal WBC 11.8 103/ul Critically high 4.0-11.0 [facility] Comment on above: Performed By: #### C BC ####[facility] [address] [place], [place] [address]Dk. Farhat Leal CRPon 11-27-2021 CRP 24.5 mg/dL Critically high <=1.0 [facility] Comment on above: Performed By: #### B SOFTWARE SYSTEMS ENGINEER, CMP, CRP ####[facility] Eenmatqrpo225[address] [place] [phone]. Farhat Leal CULTURE OTHERon 11-27-2021 CULTURE OTHER Normal [facility] Comment on above: Performed By: #### O THCX ####[facility] Ggckthmbon9852 [place] [phone]. Farhat Leal CULTURE WOUNDon 11-27-2021 CULTURE WOUND Normal [facility] Comment on above: Performed By: #### W OUNDCX ####[facility] Chglzphadp6[address] [place] [phone]. Farhat Elvis POINT OF CARE GLUCOSEon 11-15 Glucose [Mass/Vol] 147 mg/dL Critically high 74-106 [facility] Comment on above: Performed By: #### P OCGLUC ####[facility] Qnadfarpqx4977 [place] [phone]. Madelynlorri Leal PROF 14(COMP METB)on 022 Albumin [Mass/Vol] 1.4 g/dL Critically low 3.4-5.0 [facility] Comment on above: Performed By: #### B SOFTWARE SYSTEMS ENGINEER, CMP, CRP ####[facility] Zizqqwnrsb4013 [place] [phone]. Farhat Leal Albumin/Globulin [Mass ratio] 0.4 {ratio} Normal [facility] Comment on above: Performed By: #### B SOFTWARE SYSTEMS ENGINEER, CMP, CRP ####[facility] Ioqmznrewh5884 [place] [address]Dr. Farhat Leal ALP [Catalytic activity/Vol] 82 U/L Normal 46-116 [facility] Comment on above: Performed By: #### B SOFTWARE SYSTEMS ENGINEER, CMP, CRP ####[facility] Nxtjtjlffe[address] [place], [place] [address]Dr. Farhat Leal ALT [Catalytic activity/Vol] 22 U/L Normal 16-63 [facility] Comment on above: Performed By: #### B SOFTWARE SYSTEMS ENGINEER, CMP, CRP ####[facility] Tyalfckrrh[address] [place], [place] [address]Dr. Farhat Leal Anion gap [Moles/Vol] 14.2 mmol/L Normal [facility] Comment on above: Performed By: #### B SOFTWARE SYSTEMS ENGINEER, CMP, CRP ####[facility] Owceicamva8[address] [place], [place] [address]Dr. Farhat Elvis AST [Catalytic activity/Vol] 35 U/L Normal 15-37 [facility] Comment on above: Performed By: #### B SOFTWARE SYSTEMS ENGINEER, CMP, CRP ####[facility] Qeyudobapv[address] [place], [place] [address]Dr. Farhat Leal Bilirubin [Mass/Vol] 0.7 mg/dL Normal 0.2-1.0 [facility] Comment on above: Performed By: #### B SOFTWARE SYSTEMS ENGINEER, CMP, CRP ####[facility] Wuhzhwfczz33[address] [place], [place] [address]Dr. Farhat Leal Calcium [Mass/Vol] 8.2 mg/dL Critically low 8.5-10.1 [facility] Comment on above: Performed By: #### B SOFTWARE SYSTEMS ENGINEER, CMP, CRP ####[facility] Thofypxwrx[address] [place] [address]Dr. Farhat Leal Chloride [Moles/Vol] 99 mmol/L Normal 98-107 [facility] Comment on above: Performed By: #### B SOFTWARE SYSTEMS ENGINEER, CMP, CRP ####[facility] Owiwhcnipy65[address] [place] [phone]. Farhat Leal CO2 [Moles/Vol] 22.6 mmol/L Normal 21.0-32.0 [facility] Comment on above: Performed By: #### B SOFTWARE SYSTEMS ENGINEER, CMP, CRP ####[facility] Ixjhopwvch4278 [place] [address]Dr. Farhat Leal Creatinine [Mass/Vol] 1.73 mg/dL Critically high 0.70-1.30 [facility] Comment on above: Performed By: #### B SOFTWARE SYSTEMS ENGINEER, CMP, CRP ####[facility] Zisfzkwliv1674 [place] [address]Dr. Farhat Leal EGFR-AF GHANAIAN 47 mL/min/1.73m2 Critically low >=60 [facility] Comment on above: Performed By: #### B SOFTWARE SYSTEMS ENGINEER, CMP, CRP ####[facility] Hzwlnbcarf6062 [place] [address]Dr. Farhat Leal EGFR-NON AF GHANAIAN 38 mL/min/1.73m2 Critically low >=60 [facility] Comment on above: Performed By: #### B SOFTWARE SYSTEMS ENGINEER, CMP, CRP ####[facility] Rjskmuxrgk4686 [place] [address]Dr. Farhat Leal Globulin (S) [Mass/Vol] 3.7 g/dL Normal [facility] Comment on above: Performed By: #### B SOFTWARE SYSTEMS ENGINEER, CMP, CRP ####[facility] Ugakwjdovf2144 [place] [address]Dr. Fahrat Leal Glucose [Mass/Vol] 220 mg/dL Critically high 74-106 T [facility] Comment on above: Performed By: #### B SOFTWARE SYSTEMS ENGINEER, CMP, CRP ####[facility] Bjiyiqmkee[address] [place] [address]Dr. Farhat Leal Potassium [Moles/Vol] 3.8 mmol/L Normal 3.5-5.1 [facility] Comment on above: Performed By: #### B SOFTWARE SYSTEMS ENGINEER, CMP, CRP ####[facility] Juxzlezsfm5353 [place] [address]Dr. Farhat Leal Protein [Mass/Vol] 5.1 g/dL Critically low 6.4-8.2 Th [facility] Comment on above: Performed By: #### B SOFTWARE SYSTEMS ENGINEER, CMP, CRP ####[facility] Dzovqqvfbm8339 [place] [address]Dr. Farhat Leal Sodium [Moles/Vol] 132 mmol/L Critically low 136-145 Th [facility] Comment on above: Performed By: #### B SOFTWARE SYSTEMS ENGINEER, CMP, CRP ####[facility] Lxsibdvjbk87[address] [place], [place] [address]Dr. Farhat Leal Urea nitrogen [Mass/Vol] 49.0 mg/dL Critically high 7.0-18.0 [facility] Comment on above: Performed By: #### B SOFTWARE SYSTEMS ENGINEER, CMP, CRP ####[facility] Aoopczzgbj37[address] [place], [place] [address]Dr. Farhat Leal Urea nitrogen/Creatinine [Mass ratio] 28.3 mg/mg Normal [facility] Comment on above: Performed By: #### B SOFTWARE SYSTEMS ENGINEER, CMP, CRP ####[facility] Cpoxwjhdkr46[address] [place], [place] [address]Dr. Farhat Leal PROTIMEon 11-27-2021 INR Coag (PPP) [Relative time] 1.25 {INR} Normal [facility] Comment on above: Performed By: #### P T ####[facility] Hhlvwifbkr[address] [place], [place] [address]Dr. Farhat Leal INR GUIDELINES SEE BELOW Normal [facility] Comment on above: Result Comment: MALINA RED INR: 2.0 - 3.0 CONDITIONS NOT LISTED BELOW 2.5 - 3.5 FOR PROSTHETIC HEART VALVE REPLACEMENT 2.5 - 3.5 RECURRENT THROMBOSIS Performed By: #### P T ####[facility] Rniioyjafm[address] [place], [place] [address]Dr. Farhat Leal PT Coag (PPP) [Time] 13.3 s Critically high 9.0-11.6 [facility] Comment on above: Performed By: #### P T ####[facility] Kgkchodogq[address] [place], [place] [address]DrSkylar Leal SED RATE [facility] 2021 SED RATE 60 mm/hr Critically high <=20 [facility] Comment on above: Performed By: #### S EDR ####[facility] Dcbtatsjzj13[address] [place], [place] [address]Dr. Farhat Elvis VANCOMYCIN TROUGHon 11-28-19 VANCOMYCIN TROUGH 21.2 ug/ml Critically high 5.0-20.0 Th [facility] Comment on above: Performed By: #### V ANCT ####[facility] Yhdsfzbwcv[address] [place], [place] [address]Dr. Farhat Elvis XR CHEST 1 Von 11-27-2021 XR CHEST 1 V Normal [facility] BNPon 11-26-2021 Natriuretic peptide B (Bld) [Mass/Vol] 02701.0 pg/mL Critically high <=1,800.0 [facility] Comment on above: Performed By: #### B SOFTWARE SYSTEMS ENGINEER, CRP, CMP ####[facility] Ufpogfxmws99[address] [place], [place] [address]Dr. Madelynlorri Leal CBC AUTO DIFFon 11-26-2021 BASO # 0.0 103/ul Normal 0.0-0.1 [facility] Comment on above: Performed By: #### C BC ####[facility] Nzcdajcvxn70[address] [place], [place] [address]Dr. Farhat Leal Basophils/100 WBC (Bld) 0.2 % Normal 0.2-2.0 [facility] Comment on above: Performed By: #### C BC ####[facility] Ssmqhcnejc[address] [place], [place] [address]Dr. Farhat Leal EO # 0.0 103/ul Normal 0.0-0.7 [facility] Comment on above: Performed By: #### C BC ####[facility] Sdtrvkwsbg3[address] [place], [place] [address]Dr. Farhat Leal Eosinophils/100 WBC (Bld) 0.3 % Critically low 0.9-7.0 [facility] Comment on above: Performed By: #### C BC ####[facility] Wlveaffwoc[address] [place], [place] [address]DrSkylar Leal Erythrocyte distribution width (RBC) [Ratio] 13.9 % Normal 11.0-15.0 [facility] Comment on above: Performed By: #### C BC ####[facility] Wp[address]rihdyo2399 [place] [address]DrSkylar Leal Hematocrit (Bld) [Volume fraction] 27.3 % Critically low 42.0-54.0 [facility] Comment on above: Performed By: #### C BC ####[facility] Dgbchunvmf[address] [place], [place] [address]DrSkylar Leal Hemoglobin (Bld) [Mass/Vol] 8.8 g/dL Critically low 14.0-18.0 [facility] Comment on above: Performed By: #### C BC ####[facility] Rsspefqbeq4[address] [place], [place] [address]DrSkylar Leal IG # 0.17 10e3/ul Critically high 0.00-0.03 [facility] Comment on above: Performed By: #### C BC ####[facility] Cmzsffhfbj[address] [place], [place] [address]DrSkylar Leal IG % 1.2 % Critically high 0.0-0.5 [facility] Comment on above: Performed By: #### C BC ####[facility] Mfnlnerfyr[address] [place], [place] [address]DrSkylar Leal LYMPH # 0.7 103/ul Critically low 1.2-3.8 The [facility] Comment on above: Performed By: #### C BC ####[facility] Eabkhhvezq[address] [place], [place] [address]DrSkylar Leal Lymphocytes/100 WBC (Bld) 4.8 % Critically low 20.5-60.0 [facility] Comment on above: Performed By: #### C BC ####[facility] Dfxdonkedh224[address] [place], [place] [address]DrSkylar Leal MANUAL DIFF REQ NO Normal [facility] Comment on above: Performed By: #### C BC ####[facility] Uyuisqjqoe25[address] [place], [place] [address]DrSkylar Leal MCH (RBC) [Entitic mass] 29.9 pg Normal 25.9-34.0 [facility] Comment on above: Performed By: #### C BC ####[facility] [address] [place] [address]Dr. Farhat Leal MCHC (RBC) [Mass/Vol] 32.2 g/dL Normal 29.9-35.2 [facility] Comment on above: Performed By: #### C BC ####[facility] Nltfwmfgnj0962 [place] [address]DrSkylar Leal MCV (RBC) [Entitic vol] 92.9 fL Normal 80.0-94.0 [facility] Comment on above: Performed By: #### C BC ####[facility] Fuypibyevf[address] [place], [place] [address]DrSkylar Leal MONO # 1.3 103/ul Critically high 0.3-0.8 [facility] Comment on above: Performed By: #### C BC ####[facility] Yimxbygtpz85[address] [place], [place] [address]Dr. Farhat Leal Monocytes/100 WBC (Bld) 9.6 % Normal 1.7-12.0 [facility] Comment on above: Performed By: #### C BC ####[facility] Gupwbokjep64[address] [place], [place] [address]DrSkylar Leal NEUT # 11.4 103/ul Critically high 1.4-6.5 [facility] Comment on above: Performed By: #### C BC ####[facility] Rymakwneao[address] [place], [place] [address]DrSkylar Leal Neutrophils/100 WBC (Bld) 83.9 % Critically high 43.0-75.0 [facility] Comment on above: Performed By: #### C BC ####[facility] Zlaucylhmw[address] [place], [place] [address]DrSkylar Leal Platelet mean volume (Bld) [Entitic vol] 9.6 fL Normal 9.5-13.5 [facility] Comment on above: Performed By: #### C BC ####[facility] Tdhdylxrrk[address] [place], [place] [address]Dr. Farhat Leal PLT 395 103/ul Normal 150-450 [facility] Comment on above: Performed By: #### C BC ####[facility] Uojbrxgfcy9355 [place] [address]Dr. Farhat Leal RBC 2.94 106/ul Critically low 4.70-6.10 [facility] Comment on above: Performed By: #### C BC ####[facility] Bulbugvvqs[address]92 [place] [address]Dr. Farhat Leal WBC 13.6 103/ul Critically high 4.0-11.0 [facility] Comment on above: Performed By: #### C BC ####[facility] Ieaxhissda3773 [place] [address]Dr. Farhat Leal CRPon 11-26-2021 CRP [Mass/Vol] mg/L Critically high <=1.0 [facility] Comment on above: Performed By: #### B SOFTWARE SYSTEMS ENGINEER, CRP, CMP ####[facility] Wjbxjqfadn6102 [place] [address]Dr. Farhat Leal PROF 14(COMP METB)on 022 Albumin [Mass/Vol] 1.5 g/dL Critically low 3.4-5.0 [facility] Comment on above: Performed By: #### B SOFTWARE SYSTEMS ENGINEER, CRP, CMP ####[facility] Cjcxfmetpj9749 [place] [address]Dr. Farhat Leal Albumin/Globulin [Mass ratio] 0.4 {ratio} Normal [facility] Comment on above: Performed By: #### B SOFTWARE SYSTEMS ENGINEER, CRP, CMP ####[facility] Vbllaosirs2896 [place] [address]Dr. Farhat Leal ALP [Catalytic activity/Vol] 88 U/L Normal 46-116 [facility] Comment on above: Performed By: #### B SOFTWARE SYSTEMS ENGINEER, CRP, CMP ####[facility] Rhcicgtkqd5854 [place] [address]Dr. Farhat Leal ALT [Catalytic activity/Vol] 29 U/L Normal 16-63 [facility] Comment on above: Performed By: #### B SOFTWARE SYSTEMS ENGINEER, CRP, CMP ####[facility] Oqvddfkplq6199 [place] [address]Dr. Farhat Leal Anion gap [Moles/Vol] 13.3 mmol/L Normal [facility] Comment on above: Performed By: #### B SOFTWARE SYSTEMS ENGINEER, CRP, CMP ####[facility] Cnzktaxzps5346 [place] [address]Dr. Farhat Leal AST [Catalytic activity/Vol] 32 U/L Normal 15-37 [facility] Comment on above: Performed By: #### B SOFTWARE SYSTEMS ENGINEER, CRP, CMP ####[facility] Lilsmczrgr5704 [place] [address]Dr. Farhat Leal Bilirubin [Mass/Vol] 0.6 mg/dL Normal 0.2-1.0 [facility] Comment on above: Performed By: #### B SOFTWARE SYSTEMS ENGINEER, CRP, CMP ####[facility] Nlzxvavrvg[address] [place], [place] [address]Dr. Farhat Leal Calcium [Mass/Vol] 8.0 mg/dL Critically low 8.5-10.1 [facility] Comment on above: Performed By: #### B SOFTWARE SYSTEMS ENGINEER, CRP, CMP ####[facility] Xntlrgpezl88[address] [place], [place] [address]Dr. Farhat Leal Chloride [Moles/Vol] 98 mmol/L Normal 98-107 [facility] Comment on above: Performed By: #### B SOFTWARE SYSTEMS ENGINEER, CRP, CMP ####[facility] Kfwkdazwao[address] [place], [place] [address]Dr. Farhat Leal CO2 [Moles/Vol] 23.7 mmol/L Normal 21.0-32.0 [facility] Comment on above: Performed By: #### B SOFTWARE SYSTEMS ENGINEER, CRP, CMP ####[facility] Kzrgvcimit32[address] [place], [place] [address]Dr. Farhat Leal Creatinine [Mass/Vol] 2.08 mg/dL Critically high 0.70-1.30 [facility] Comment on above: Performed By: #### B SOFTWARE SYSTEMS ENGINEER, CRP, CMP ####[facility] Rzrxrbpzac98[address] [place] [address]Dr. Farhat Leal EGFR-AF GHANAIAN 38 mL/min/1.73m2 Critically low >=60 [facility] Comment on above: Performed By: #### B SOFTWARE SYSTEMS ENGINEER, CRP, CMP ####[facility] Wxhssdpjuk[address] [place], [place] [address]Dr. Farhat Leal EGFR-NON AF GHANAIAN 31 mL/min/1.73m2 Critically low >=60 [facility] Comment on above: Performed By: #### B SOFTWARE SYSTEMS ENGINEER, CRP, CMP ####[facility] Iyouoyqzml288[address] [place], [place] [address]Dr. Farhat Leal Globulin (S) [Mass/Vol] 3.7 g/dL Normal [facility] Comment on above: Performed By: #### B SOFTWARE SYSTEMS ENGINEER, CRP, CMP ####[facility] Nrtuzpijny8[address] [place], [place] [address]Dr. Farhat Leal Glucose [Mass/Vol] 315 mg/dL Critically high 74-106 T [facility] Comment on above: Performed By: #### B SOFTWARE SYSTEMS ENGINEER, CRP, CMP ####[facility] Oconeugtxs[address] [place], [place] [address]Dr. Farhat Leal Potassium [Moles/Vol] 4.0 mmol/L Normal 3.5-5.1 [facility] Comment on above: Performed By: #### B SOFTWARE SYSTEMS ENGINEER, CRP, CMP ####[facility] Rbrjcvgqrz7[address] [place], [place] [address]Dr. Farhat Leal Protein [Mass/Vol] 5.2 g/dL Critically low 6.4-8.2 Th [facility] Comment on above: Performed By: #### B SOFTWARE SYSTEMS ENGINEER, CRP, CMP ####[facility] Snouddiezn23[address] [place], [place] [address]Dr. Farhat Leal Sodium [Moles/Vol] 131 mmol/L Critically low 136-145 Th [facility] Comment on above: Performed By: #### B SOFTWARE SYSTEMS ENGINEER, CRP, CMP ####[facility] Uiyzbkcvce9[address] [place], [place] [address]Dr. Farhat Leal Urea nitrogen [Mass/Vol] 50.0 mg/dL Critically high 7.0-18.0 [facility] Comment on above: Performed By: #### B SOFTWARE SYSTEMS ENGINEER, CRP, CMP ####[facility] Kootqrqqoh6640 [place] [address]Dr. Farhat Leal Urea nitrogen/Creatinine [Mass ratio] 24.0 mg/mg Normal [facility] Comment on above: Performed By: #### B SOFTWARE SYSTEMS ENGINEER, CRP, CMP ####[facility] Gsnamzdlue6[address] [place] [address]Dr. Farhat Leal PROTIMEon 11-26-2021 INR Coag (PPP) [Relative time] 1.31 {INR} Normal [facility] Comment on above: Performed By: #### P T ####[facility] Jztbbsztpo[address] [place], [place] [address]Dr. Farhat Leal INR GUIDELINES SEE BELOW Normal [facility] Comment on above: Result Comment: MALINA RED INR: 2.0 - 3.0 CONDITIONS NOT LISTED BELOW 2.5 - 3.5 FOR PROSTHETIC HEART VALVE REPLACEMENT 2.5 - 3.5 RECURRENT THROMBOSIS Performed By: #### P T ####[facility] Eleuhcxyfh37[address] [place], [place] [address]Dr. Farhat Leal PT Coag (PPP) [Time] 13.9 s Critically high 9.0-11.6 [facility] Comment on above: Performed By: #### P T ####[facility] Ciexlxrciy[address] [place], [place] [address]Dr. Farhat Leal SED RATE HOWELLERGREN 2021 SED RATE 87 mm/hr Critically high <=20 [facility] Comment on above: Performed By: #### S EDR ####[facility] X[address]jcpdpfm[address] [place], [place] [address]Dr. Farhat Leal BNPon 11-25-2021 Natriuretic peptide B (Bld) [Mass/Vol] 01488.0 pg/mL Critically high <=1,800.0 [facility] Comment on above: Performed By: #### C MP, BNP, CRP ####[facility] Bldpdskcfj87[address] [place], [place] [address]Dr. Farhat Leal CBC AUTO DIFFon 11-25-2021 BASO # 0.0 103/ul Normal 0.0-0.1 [facility] Comment on above: Performed By: #### C BC ####[facility] Xz[address]itufcj[address] [place] [id number]. Farhat Leal Basophils/100 WBC (Bld) 0.4 % Normal 0.2-2.0 [facility] Comment on above: Performed By: #### C BC ####[facility] K[address]ylfr[address] [place] [address]Dr. Farhat Leal EO # 0.1 103/ul Normal 0.0-0.7 [facility] Comment on above: Performed By: #### C BC ####[facility] Doobaodjex[address] [place], [place] [address]Dr. Farhat Leal Eosinophils/100 WBC (Bld) 1.2 % Normal 0.9-7.0 [facility] Comment on above: Performed By: #### C BC ####[facility] Epfxapcndv6[address] [place], [place] [address]Dr. Farhat Leal Erythrocyte distribution width (RBC) [Ratio] 13.7 % Normal 11.0-15.0 [facility] Comment on above: Performed By: #### C BC ####[facility] [address]faidrcdct[address] [place], [place] [address]Dr. Farhat Leal Hematocrit (Bld) [Volume fraction] 29.6 % Critically low 42.0-54.0 [facility] Comment on above: Performed By: #### C BC ####[facility] Afiiqpvqjs[address] [place], [place] [address]Dr. Farhat Leal Hemoglobin (Bld) [Mass/Vol] 9.3 g/dL Critically low 14.0-18.0 [facility] Comment on above: Performed By: #### C BC ####[facility] Nowbqhiahr[address] [place], [place] [address]Dr. Farhat Leal IG # 0.15 10e3/ul Critically high 0.00-0.03 [facility] Comment on above: Performed By: #### C BC ####[facility] Szbcghmmhi[address] [place], [place] [address]Dr. Farhat Leal IG % 1.4 % Critically high 0.0-0.5 [facility] Comment on above: Performed By: #### C BC ####[facility] [address]fts[address] [place] [address]Dr. Farhat Leal LYMPH # 0.8 103/ul Critically low 1.2-3.8 [facility] Comment on above: Performed By: #### C BC ####[facility] Zhanvignpu9023 [place] [address]Dr. Farhat Leal Lymphocytes/100 WBC (Bld) 7.3 % Critically low 20.5-60.0 [facility] Comment on above: Performed By: #### C BC ####[facility] J[address]fbvynbl[address] [place] [address]Dr. Farhat Leal MANUAL DIFF REQ NO Normal [facility] Comment on above: Performed By: #### C BC ####[facility] [address]uhqsbpki[address] [place], [place] [address]Dr. Farhat Leal MCH (RBC) [Entitic mass] 29.3 pg Normal 25.9-34.0 [facility] Comment on above: Performed By: #### C BC ####[facility] [address]ezjr[address] [place], [place] [address]Dr. Farhat Leal MCHC (RBC) [Mass/Vol] 31.4 g/dL Normal 29.9-35.2 [facility] Comment on above: Performed By: #### C BC ####[facility] Fixzjriwwj27[address] [place] [address]Dr. Farhat Leal MCV (RBC) [Entitic vol] 93.4 fL Normal 80.0-94.0 [facility] Comment on above: Performed By: #### C BC ####[facility] Odmudimava[address] [place], [place] [address]Dr. Farhat Leal MONO # 1.3 103/ul Critically high 0.3-0.8 [facility] Comment on above: Performed By: #### C BC ####[facility] E[address]fqbdtlo[address] [place] [id number]. Farhat Leal Monocytes/100 WBC (Bld) 12.3 % Critically high 1.7-12.0 [facility] Comment on above: Performed By: #### C BC ####[facility] [address]uclxnsmm[address] [place] [address]Dr. Madelynlorri Leal NEUT # 8.4 103/ul Critically high 1.4-6.5 [facility] Comment on above: Performed By: #### C BC ####[facility] [address] [place] [address]DrSkylar Leal Neutrophils/100 WBC (Bld) 77.4 % Critically high 43.0-75.0 [facility] Comment on above: Performed By: #### C BC ####[facility] Krmjzwtdzd94[address] [place] [address]DrSkylar Leal Platelet mean volume (Bld) [Entitic vol] 9.8 fL Normal 9.5-13.5 [facility] Comment on above: Performed By: #### C BC ####[facility] Hzhxnctjfl17[address] [place], [place] [address]Dr. Farhat Leal PLT 390 103/ul Normal 150-450 [facility] Comment on above: Performed By: #### C BC ####[facility] Dofirthkwf[address] [place], [place] [address]Dr. Farhat Leal RBC 3.17 106/ul Critically low 4.70-6.10 The [facility] Comment on above: Performed By: #### C BC ####[facility] Hbkzcabruh59[address] [place] [address]DrSkylar Leal WBC 10.9 103/ul Normal 4.0-11.0 [facility] Comment on above: Performed By: #### C BC ####[facility] Zsyxrdcxvf13[address] [place] [id number] Leal CRPon 11-25-2021 CRP 27.2 mg/dL Critically high <=1.0 The [facility] Comment on above: Performed By: #### C MP, BNP, CRP ####[facility] Ijlnnxospc05[address] [place] [address]DrSkylar Leal PROF 14(COMP METB)on 022 Albumin [Mass/Vol] 1.5 g/dL Critically low 3.4-5.0 [facility] Comment on above: Performed By: #### C MP, BNP, CRP ####[facility] Wiyrwarvej[address] [place] [address]Dr. Farhat Leal Albumin/Globulin [Mass ratio] 0.4 {ratio} Normal [facility] Comment on above: Performed By: #### C MP, BNP, CRP ####[facility] Pnwhqgieia[address] [place] [address]Dr. Farhat Leal ALP [Catalytic activity/Vol] 86 U/L Normal 46-116 [facility] Comment on above: Performed By: #### C MP, BNP, CRP ####[facility] Etgarrcgyf[address] [place] [address]Dr. Farhat Leal ALT [Catalytic activity/Vol] 34 U/L Normal 16-63 [facility] Comment on above: Performed By: #### C MP, BNP, CRP ####[facility] Hqiuretnlt39[address] [place] [address]Dr. Farhat Leal Anion gap [Moles/Vol] 17.8 mmol/L Normal [facility] Comment on above: Performed By: #### C MP, BNP, CRP ####[facility] Cnqmhfeynq00[address] [place] [address]Dr. Farhat Leal AST [Catalytic activity/Vol] 48 U/L Critically high 15-37 [facility] Comment on above: Performed By: #### C MP, BNP, CRP ####[facility] Cihkozoyep[address] [place] [address]Dr. Farhat Leal Bilirubin [Mass/Vol] 0.8 mg/dL Normal 0.2-1.0 [facility] Comment on above: Performed By: #### C MP, BNP, CRP ####[facility] Uaqtgzsqqi[address] [place] [address]Dr. Farhat Leal Calcium [Mass/Vol] 8.3 mg/dL Critically low 8.5-10.1 [facility] Comment on above: Performed By: #### C MP, BNP, CRP ####[facility] Eowrwvwzfh[address] [place] [address]Dr. Farhat Leal Chloride [Moles/Vol] 97 mmol/L Critically low 98-107 [facility] Comment on above: Performed By: #### C MP, BNP, CRP ####[facility] Lhzlqenaur58[address] [place] [address]Dr. Farhat Leal CO2 [Moles/Vol] 23.0 mmol/L Normal 21.0-32.0 [facility] Comment on above: Performed By: #### C MP, BNP, CRP ####[facility] Ausxeyxlgf00[address] [place], [place] [address]Dr. Farhat Elvis Creatinine [Mass/Vol] 1.68 mg/dL Critically high 0.70-1.30 [facility] Comment on above: Performed By: #### C MP, BNP, CRP ####[facility] Vytqnfzofx74[address] [place], [place] [address]Dr. Madelynlorri Elvis EGFR-AF GHANAIAN 48 mL/min/1.73m2 Critically low >=60 [facility] Comment on above: Performed By: #### C MP, BNP, CRP ####[facility] Mpcolxeehl8[address] [place], [place] [address]Dr. Farhat Elvis EGFR-NON AF GHANAIAN 40 mL/min/1.73m2 Critically low >=60 [facility] Comment on above: Performed By: #### C MP, BNP, CRP ####[facility] Ezzvrqoify7[address] [place], [place] [address]Dr. Farhat Elvis Globulin (S) [Mass/Vol] 3.9 g/dL Normal [facility] Comment on above: Performed By: #### C MP, BNP, CRP ####[facility] Jsuwbhmadw280[address] [place], [place] [address]Dr. Farhat Leal Glucose [Mass/Vol] 282 mg/dL Critically high 74-106 [facility] Comment on above: Performed By: #### C MP, BNP, CRP ####[facility] Iaovqwoypk12[address] [place], [place] [address]Dr. Farhat Leal Potassium [Moles/Vol] 4.8 mmol/L Normal 3.5-5.1 [facility] Comment on above: Performed By: #### C MP, BNP, CRP ####[facility] Csbffjladj64[address] [place] [address]Dr. Farhat Leal Protein [Mass/Vol] 5.4 g/dL Critically low 6.4-8.2 Th [facility] Comment on above: Performed By: #### C MP, BNP, CRP ####[facility] Wteunxdtys8[address] [place], [place] [address]Dr. Farhat Leal Sodium [Moles/Vol] 133 mmol/L Critically low 136-145 Th [facility] Comment on above: Performed By: #### C MP, BNP, CRP ####[facility] Brwfrwgvlq65[address] [place], [place] [address]Dr. Farhat Leal Urea nitrogen [Mass/Vol] 40.0 mg/dL Critically high 7.0-18.0 [facility] Comment on above: Performed By: #### C MP, BNP, CRP ####[facility] Kmrshrtzwm[address] [place], [place] [address]Dr. Farhat Leal Urea nitrogen/Creatinine [Mass ratio] 23.8 mg/mg Normal [facility] Comment on above: Performed By: #### C MP, BNP, CRP ####[facility] Ytnhracbsn22[address] [place], [place] [address]Dr. Farhat Leal PROTIMEon 11-25-2021 INR Coag (PPP) [Relative time] 1.48 {INR} Normal [facility] Comment on above: Performed By: #### P T ####[facility] Acygeimryv69[address] [place], [place] [address]Dr. Farhat Leal INR GUIDELINES SEE BELOW Normal The [facility] Comment on above: Result Comment: MALINA RED INR: 2.0 - 3.0 CONDITIONS NOT LISTED BELOW 2.5 - 3.5 FOR PROSTHETIC HEART VALVE REPLACEMENT 2.5 - 3.5 RECURRENT THROMBOSIS Performed By: #### P T ####[facility] Laenoaonea9[address] [place], [place] [address]Dr. Farhat Leal PT Coag (PPP) [Time] 15.6 s Critically high 9.0-11.6 [facility] Comment on above: Performed By: #### P T ####[facility] Vfzwnfnrkw[address] [place], [place] [address]Dr. Farhat Leal SED RATE WESTERGRENon 2021 SED RATE 76 mm/hr Critically high <=20 The [facility] Comment on above: Performed By: #### S EDR ####[facility] Xnmssqgcni5264[address] [place], [place] [address]Dr. Farhat Leal BNPon 11-24-2021 Natriuretic peptide B (Bld) [Mass/Vol] 21200.0 pg/mL Critically high <=1,800.0 [facility] Comment on above: Performed By: #### B SOFTWARE SYSTEMS ENGINEER, CMP, CRP ####[facility] Mersnifqxd8832[address] [place], [place] [address]Dr. Farhat Leal CBC AUTO DIFFon 11-24-2021 BASO # 0.0 103/ul Normal 0.0-0.1 [facility] Comment on above: Performed By: #### C BC ####[facility] Yrlguwgfuf9[address] [place], [place] [address]Dr. Farhat Elvis Basophils/100 WBC (Bld) 0.3 % Normal 0.2-2.0 [facility] Comment on above: Performed By: #### C BC ####[facility] Grxhbbcron[address] [place], [place] [address]Dr. Farhat Leal EO # 0.2 103/ul Normal 0.0-0.7 [facility] Comment on above: Performed By: #### C BC ####[facility] Veuaiyuhwd[address] [place], [place] [address]Dr. Madelynlorri Leal Eosinophils/100 WBC (Bld) 1.2 % Normal 0.9-7.0 [facility] Comment on above: Performed By: #### C BC ####[facility] Loudxykiaa0[address] [place], [place] [address]Dr. Farhat Leal Erythrocyte distribution width (RBC) [Ratio] 13.5 % Normal 11.0-15.0 [facility] Comment on above: Performed By: #### C BC ####[facility] P[address]plafky[address] [place] [address]Dr. Farhat Leal Hematocrit (Bld) [Volume fraction] 31.1 % Critically low 42.0-54.0 [facility] Comment on above: Performed By: #### C BC ####[facility] Ieruwejkmb[address] [place] [address]Dr. Farhat Leal Hemoglobin (Bld) [Mass/Vol] 10.0 g/dL Critically low 14.0-18.0 [facility] Comment on above: Performed By: #### C BC ####[facility] Lfkknzmiyt[address] [place] [address]Dr. Farhat Leal IG # 0.13 10e3/ul Critically high 0.00-0.03 [facility] Comment on above: Performed By: #### C BC ####[facility] Atzugkoaky[address] [place] [address]Dr. Farhat Leal IG % 1.0 % Critically high 0.0-0.5 [facility] Comment on above: Performed By: #### C BC ####[facility] Nxgdqqmrhj00[address] [place], [place] [address]DrSkylar Farhat Leal LYMPH # 0.7 103/ul Critically low 1.2-3.8 [facility] Comment on above: Performed By: #### C BC ####[facility] Ngbxlgaius7[address] [place] [address]DrSkylar Farhat Elvis Lymphocytes/100 WBC (Bld) 4.9 % Critically low 20.5-60.0 [facility] Comment on above: Performed By: #### C BC ####[facility] Qujxroxmiq5[address] [place] [address]DrSkylar Madelynlorri Leal MANUAL DIFF REQ NO Normal [facility] Comment on above: Performed By: #### C BC ####[facility] Egopiiphek0954 [place] [address]DrSkylar Madelynlorri Leal MCH (RBC) [Entitic mass] 29.6 pg Normal 25.9-34.0 [facility] Comment on above: Performed By: #### C BC ####[facility] Igfnwnbbtd5232 [place] [phone]. Farhat Leal MCHC (RBC) [Mass/Vol] 32.2 g/dL Normal 29.9-35.2 [facility] Comment on above: Performed By: #### C BC ####[facility] Gjvichjogq9236 [place] [phone] Farhat Elvis MCV (RBC) [Entitic vol] 92.0 fL Normal 80.0-94.0 [facility] Comment on above: Performed By: #### C BC ####[facility] Tgubuggcbp8892 [place] [phone] Leal MONO # 1.3 103/ul Critically high 0.3-0.8 [facility] Comment on above: Performed By: #### C BC ####[facility] Tcrkiakwfu74[address] [place] [address]Dr. Farhat Leal Monocytes/100 WBC (Bld) 9.6 % Normal 1.7-12.0 [facility] Comment on above: Performed By: #### C BC ####[facility] Zfxddkyacu[address] [place], [place] [address]DrSkylar Joshilorri Elvis NEUT # 11.2 103/ul Critically high 1.4-6.5 [facility] Comment on above: Performed By: #### C BC ####[facility] Tsdnlpyzyj[address] [place], [place] [address]DrSkylar Leal Neutrophils/100 WBC (Bld) 83.0 % Critically high 43.0-75.0 [facility] Comment on above: Performed By: #### C BC ####[facility] Btsrjoruhr[address] [place], [place] [address]DrSkylar Leal Platelet mean volume (Bld) [Entitic vol] 9.5 fL Normal 9.5-13.5 [facility] Comment on above: Performed By: #### C BC ####[facility] Zebclmripm[address] [place], [place] [address]DrSkylar Leal PLT 395 103/ul Normal 150-450 [facility] Comment on above: Performed By: #### C BC ####[facility] Hsydwlhnrq9247 [place] [phone]. Farhat Leal RBC 3.38 106/ul Critically low 4.70-6.10 [facility] Comment on above: Performed By: #### C BC ####[facility] Foggflnxjb9137 [place] [phone]. Farhat Leal WBC 13.4 103/ul Critically high 4.0-11.0 [facility] Comment on above: Performed By: #### C BC ####[facility] Pvtsrpaxta5024 [place] [phone]. Farhat Leal CRPon 11-24-2021 CRP 27.8 mg/dL Critically high <=1.0 [facility] Comment on above: Performed By: #### B SOFTWARE SYSTEMS ENGINEER, CMP, CRP ####[facility] Hzmattjugw0028[address] [place], [place] [address]Dr. Farhat Leal CULTURE ANAEROBICon 11-25-19 22 CULTURE ANAEROBIC Culture Observations : NO GROWTH OF ANAEROBES AT 72 HOURS. Normal The [facility] Comment on above: Performed By: #### A NACX ####[facility] Xahgghkcvu20[address] [place], [place] [address]Dr. Farhat Leal CULTURE URINEon 11-24-2021 CULTURE URINE Culture Observations : NO GROWTH. Normal [facility] Comment on above: Performed By: #### U RCX ####[facility] Vtiuujnqqe0062 [place] [phone]. Farhat Leal ECHOCARDIO M/2D COMPLETEon 1 ECHOCARDIO M/2D COMPLETE Normal [facility] ER URINE PROFILEon 2 Bilirubin Ql (U) Negative Normal NEGATIVE [facility] Comment on above: Performed By: #### E RUR ####[facility] Erjfagtsmg[address] [place], [place] [address]Dr. Farhat Elvis Clarity (U) CLEAR Normal CLEAR [facility] Comment on above: Performed By: #### E RUR ####[facility] Fjweebsaze[address] [place], [place] [address]Dr. Farhat Leal Color (U) YELLOW Normal YELLOW [facility] Comment on above: Performed By: #### E RUR ####[facility] Wwtqitxsec[address] [place], [place] [address]Dr. Farhat Leal ERUAHD A micrscopic examination will be performed if indicated. Normal [facility] Comment on above: Performed By: #### E RUR ####[facility] Ziysbzaqrb[address] [place], [place] [address]Dr. Farhat Leal Glucose Ql (U) Negative Normal NEGATIVE The [facility] Comment on above: Performed By: #### E RUR ####[facility] Jjmmizynqq7733[address] [place], [place] [address]Dr. Farhat Leal Hemoglobin Ql (U) Negative Normal NEGATIVE [facility] Comment on above: Performed By: #### E RUR ####[facility] Fjnfogmpaf65[address] [place], [place] [address]Dr. Farhat Leal Ketones Ql (U) TRACE Abnormal NEGATIVE The [facility] Comment on above: Performed By: #### E RUR ####[facility] Elbsslmbxw55[address] [place], [place] [address]Dr. Farhat Leal LEUKOCYTES Negative Normal NEGATIVE The [facility] Comment on above: Performed By: #### E RUR ####[facility] Vhumyrloqq9984[address] [place], [place] [address]Dr. Farhat Leal Nitrite Ql (U) Negative Normal NEGATIVE The [facility] Comment on above: Performed By: #### E RUR ####[facility] Kyorbashoa264[address] [place], [place] [address]Dr. Farhat Leal pH (U) 5.5 [pH] Normal 5-9 [facility] Comment on above: Performed By: #### E RUR ####[facility] Ritfasykpb[address] [place], [place] [address]Dr. Farhat Leal SPEC GRAVITY 1.015 Normal 1.005-<=1.02 5 [facility] Comment on above: Performed By: #### E RUR ####[facility] Qbgglfyocx36[address] [place], [place] [address]Dr. Farhat Leal UA PROTEIN Negative Normal NEGATIVE/ TRACE [facility] Comment on above: Performed By: #### E RUR ####[facility] Feichjofqk[address] [place], [place] [address]Dr. Farhat Leal UR MICRO IND NOT INDICATED Normal [facility] Comment on above: Performed By: #### E RUR ####[facility] Cbcmgwiies[address] [place], [place] [address]Dr. Farhat Leal Urobilinogen Qn (U) 0.2 {Boyd'U}/dL Normal 0.2 - 1. 0 [facility] Comment on above: Performed By: #### E RUR ####[facility] Xrgyhawuot3724[address] [place], [place] [address]Dr. Farhat Leal GRAM STAINon 11-24-2021 COMMENTS NO ORGANISMS OBSERVED Normal [facility] Comment on above: Performed By: #### G STAIN ####[facility] Wnpnrowvzv7[address] [place], [place] [address]Dr. Farhat Leal DIPHTHEROIDS Normal [facility] Comment on above: Performed By: #### G STAIN ####[facility] Mehrdmeyew8[address] [place], [place] [address]Dr. Farhat Leal EPITHELIALS Normal [facility] Comment on above: Performed By: #### G STAIN ####[facility] Xftsjqvuos4625[address] [place], [place] [address]Dr. Farhat Leal FUNGAL ELEMENTS Normal [facility] Comment on above: Performed By: #### G STAIN ####[facility] Zlorqnpdrp[address] [place], [place] [address]Dr. Farhat Leal GRAM NEG BACILLI FEW Normal [facility] Comment on above: Performed By: #### G STAIN ####[facility] Qhmkryzoti324[address] [place], [place] [address]Dr. Farhat Leal GRAM NEG BACILLI Normal [facility] Comment on above: Performed By: #### G STAIN ####[facility] Aafdfaokvk95[address] [place], [place] [address]Dr. Farhat Leal GRAM NEG DIPPLOCOCCI Normal [facility] Comment on above: Performed By: #### G STAIN ####[facility] Vuacsxhazy15[address] [place] [phone]. Farhat Leal GRAM POS BACILLI Normal [facility] Comment on above: Performed By: #### G STAIN ####[facility] Fnhyroxllo95[address] [place] [address]Dr. Farhat Leal GRAM POSITIVE COCCI Normal The [facility] Comment on above: Performed By: #### G STAIN ####[facility] Pansiouuyx8812 [place] [address]Dr. Farhat Leal GRAM POSITIVE COCCI FEW Normal The [facility] Comment on above: Performed By: #### G STAIN ####[facility] R[address]rkvbfwsm[address] [place], [place] [address]Dr. Farhat Leal GRAM STAIN SOURCE #1 Rt foot abscess Normal [facility] Comment on above: Performed By: #### G STAIN ####[facility] Ifwuptwzcr69[address] [place], [place] [address]Dr. Farhat Leal GRAM STAIN SOURCE #2 Rt foot abscess Normal [facility] Comment on above: Performed By: #### G STAIN ####[facility] Eclhjqoofp15[address] [place], [place] [address]Dr. Farhat Elal GRAM STAIN SOURCE RT CALCANEOUS Normal [facility] Comment on above: Performed By: #### G STAIN ####[facility] Qsjwiyuydu[address] [place], [place] [address]Dr. Farhat Leal GRAM STAIN SOURCE RT ACHILLES TENDON Normal [facility] Comment on above: Performed By: #### G STAIN ####[facility] Hvavmrdpmz26[address] [place] [address]Dr. Farhat Leal GS_DIPTH Normal [facility] Comment on above: Performed By: #### G STAIN ####[facility] Ruqkxuylqn39[address] [place], [place] [address]Dr. Farhat Leal WBC NONE SEEN Normal [facility] Comment on above: Performed By: #### G STAIN ####[facility] Drehtwkagr9147 [place] [address]Dr. Farhat Leal WBC RARE Normal [facility] Comment on above: Performed By: #### G STAIN ####[facility] Vxnhalvkdw9399 [place] [address]Dr. Farhat Leal POINT OF CARE GLUCOSEon 11-15 0 Glucose [Mass/Vol] 236 mg/dL Critically high 74-106 [facility] Comment on above: Performed By: #### P OCGLUC ####[facility] Rjrawicfuh[address] [place] [address]Dr. Farhat Leal Glucose [Mass/Vol] 331 mg/dL Critically high 74-106 [facility] Comment on above: Performed By: #### P OCGLUC ####[facility] Rihclkhtee232[address] [place] [address]Dr. Farhat Leal PROF 14(COMP METB)on 022 Albumin [Mass/Vol] 1.6 g/dL Critically low 3.4-5.0 [facility] Comment on above: Performed By: #### B SOFTWARE SYSTEMS ENGINEER, CMP, CRP ####[facility] Wbdfqrmqil5622 [place] [address]Dr. Farhat Leal Albumin/Globulin [Mass ratio] 0.4 {ratio} Normal [facility] Comment on above: Performed By: #### B SOFTWARE SYSTEMS ENGINEER, CMP, CRP ####[facility] Fkflqtspbm[address] [place], [place] [address]Dr. Farhat Leal ALP [Catalytic activity/Vol] 94 U/L Normal 46-116 [facility] Comment on above: Performed By: #### B SOFTWARE SYSTEMS ENGINEER, CMP, CRP ####[facility] Utodlxcvgy1919 [place] [address]Dr. Farhat Leal ALT [Catalytic activity/Vol] 49 U/L Normal 16-63 [facility] Comment on above: Performed By: #### B SOFTWARE SYSTEMS ENGINEER, CMP, CRP ####[facility] Nvtkbnimgm1959 [place] [address]Dr. Farhat Leal Anion gap [Moles/Vol] 12.5 mmol/L Normal [facility] Comment on above: Performed By: #### B SOFTWARE SYSTEMS ENGINEER, CMP, CRP ####[facility] Pxcvrylsvf7311 [place] [address]Dr. Farhat Leal AST [Catalytic activity/Vol] 102 U/L Critically high 15-37 [facility] Comment on above: Performed By: #### B SOFTWARE SYSTEMS ENGINEER, CMP, CRP ####[facility] Kmqawqelzu7205 [place] [address]Dr. Farhat Leal Bilirubin [Mass/Vol] 0.8 mg/dL Normal 0.2-1.0 [facility] Comment on above: Performed By: #### B SOFTWARE SYSTEMS ENGINEER, CMP, CRP ####[facility] Afvtmfxetg[address] [place], [place] [address]Dr. Farhat Leal Calcium [Mass/Vol] 8.4 mg/dL Critically low 8.5-10.1 Th e [facility] Comment on above: Performed By: #### B SOFTWARE SYSTEMS ENGINEER, CMP, CRP ####[facility] Dxtwwekfyy91[address] [place], [place] [address]Dr. Farhat Leal Chloride [Moles/Vol] 96 mmol/L Critically low 98-107 [facility] Comment on above: Performed By: #### B SOFTWARE SYSTEMS ENGINEER, CMP, CRP ####[facility] Flhrsuirla[address] [place], [place] [address]Dr. Farhat Leal CO2 [Moles/Vol] 24.8 mmol/L Normal 21.0-32.0 [facility] Comment on above: Performed By: #### B SOFTWARE SYSTEMS ENGINEER, CMP, CRP ####[facility] Vcdxobnile[address] [place], [place] [address]Dr. Farhat Leal Creatinine [Mass/Vol] 1.36 mg/dL Critically high 0.70-1.30 [facility] Comment on above: Performed By: #### B SOFTWARE SYSTEMS ENGINEER, CMP, CRP ####[facility] Ahomfofygp[address] [place] [address]Dr. Farhat Leal EGFR-AF GHANAIAN >60 Normal >=60 [facility] Comment on above: Performed By: #### B SOFTWARE SYSTEMS ENGINEER, CMP, CRP ####[facility] Edtnlbilgw5707 [place] [address]Dr. Farhat Leal EGFR-NON AF GHANAIAN 51 mL/min/1.73m2 Critically low >=60 [facility] Comment on above: Performed By: #### B SOFTWARE SYSTEMS ENGINEER, CMP, CRP ####[facility] Nxibxmvazo5171 [place] [address]Dr. Farhat Leal Globulin (S) [Mass/Vol] 4.1 g/dL Normal [facility] Comment on above: Performed By: #### B SOFTWARE SYSTEMS ENGINEER, CMP, CRP ####[facility] Yvjxokhyza[address]63 [place] [address]Dr. Farhat Leal Glucose [Mass/Vol] 204 mg/dL Critically high 74-106 T [facility] Comment on above: Performed By: #### B SOFTWARE SYSTEMS ENGINEER, CMP, CRP ####[facility] Laofvwpoov75[address] [place] [address]Dr. Farhat Leal Potassium [Moles/Vol] 4.3 mmol/L Normal 3.5-5.1 [facility] Comment on above: Performed By: #### B SOFTWARE SYSTEMS ENGINEER, CMP, CRP ####[facility] Ibezvmjayq[address] [place], [place] [address]Dr. Farhat Leal Protein [Mass/Vol] 5.7 g/dL Critically low 6.4-8.2 [facility] Comment on above: Performed By: #### B SOFTWARE SYSTEMS ENGINEER, CMP, CRP ####[facility] U[address]tqaqde[address] [place], [place] [address]Dr. Farhat Lela Sodium [Moles/Vol] 129 mmol/L Critically low 136-145 Th [facility] Comment on above: Performed By: #### B SOFTWARE SYSTEMS ENGINEER, CMP, CRP ####[facility] Gvriyoluqc[address] [place], [place] [address]Dr. Farhat Leal Urea nitrogen [Mass/Vol] 41.0 mg/dL Critically high 7.0-18.0 [facility] Comment on above: Performed By: #### B SOFTWARE SYSTEMS ENGINEER, CMP, CRP ####[facility] Ceoymsoing[address] [place], [place] [address]Dr. Farhat Leal Urea nitrogen/Creatinine [Mass ratio] 30.1 mg/mg Normal [facility] Comment on above: Performed By: #### B SOFTWARE SYSTEMS ENGINEER, CMP, CRP ####[facility] Xv[address]xcfmnd[address] [place], [place] [address]Dr. Farhat Leal PROTIMEon 11-24-2021 INR Coag (PPP) [Relative time] 2.20 {INR} Normal [facility] Comment on above: Performed By: #### P T ####[facility] Bpgqscrpzp[address] [place] [address]Dr. Farhat Leal INR GUIDELINES SEE BELOW Normal The [facility] Comment on above: Result Comment: MALINA RED INR: 2.0 - 3.0 CONDITIONS NOT LISTED BELOW 2.5 - 3.5 FOR PROSTHETIC HEART VALVE REPLACEMENT 2.5 - 3.5 RECURRENT THROMBOSIS Performed By: #### P T ####[facility] Rscrrzgyvh[address] [place] [address]Dr. Farhat Leal PT Coag (PPP) [Time] 22.6 s Critically high 9.0-11.6 [facility] Comment on above: Performed By: #### P T ####[facility] H[address]gtcqpvxy[address] [place], [place] [address]Dr. Farhat Leal SED RATE [facility] 2021 SED RATE 80 mm/hr Critically high <=20 [facility] Comment on above: Performed By: #### S EDR ####[facility] Acqmflfgdu8[address] [place], [place] [address]Dr. Farhat Leal BLOOD CULTURE ID PANELon A. baumannii Not detected Normal NOT DETECTED [facility] Comment on above: Performed By: #### B CID2 ####[facility] Boxnbfirdh[address] [place], [place] [address]Dr. Farhat Leal Bacteriodes fragilis Not detected Normal NOT DETECTED The [facility] Comment on above: Performed By: #### B CID2 ####[facility] Cqspymtfsb9543 [place] [address]Dr. Farhat Leal BCID CONTROLS PASSED Normal The [facility] Comment on above: Performed By: #### B CID2 ####[facility] Kfdwtsweik[address] [place], [place] [address]Dr. Farhat Leal BCIDBTHD BLOOD CULTURE BOTTLE INFORMATION Normal The [facility] Comment on above: Performed By: #### B CID2 ####[facility] Pgbeaptpvc[address] [place], [place] [id number]. Yilorri Leal BCIDHD1 ANTIMICROBIAL RESISTANCE GENES Normal The [facility] Comment on above: Performed By: #### B CID2 ####[facility] Gtpnfrcgqs5303 [place] [address]Dr. Yilorri Leal BCIDHD2 SEE BELOW Normal The [facility] Comment on above: Result Comment: Note : Antimicrobial resitance can occur via multiple mechanisms. A Not Detected result for the [employer] antomicrobial resistance gene assays does not indicate antimicrobial susceptibility. Subculturing is required for species identification and susceptibility testing of isolates. Performed By: #### B CID2 ####[facility] Pyywzrctyv57[address] [place] [address]Dr. Yilorri Leal BCIDHD3 Positive Normal The [facility] Comment on above: Performed By: #### B CID2 ####[facility] Lgihgmxjmb1423 [place] [address]Dr. Yilorri Leal BCIDHD4 Negative Normal The [facility] Comment on above: Performed By: #### B CID2 ####[facility] Outeibpgwk[address] [place], [place] [address]Dr. Yilorri Leal BCIDHD5 YEAST Normal The [facility] Comment on above: Performed By: #### B CID2 ####[facility] Zqkqxgdkis[address] [place], [place] [address]Dr. Yilan Leal Bottle Set: Set 1 Normal The [facility] Comment on above: Performed By: #### B CID2 ####[facility] Ffgijlghwy7538 [place] [address]Dr. Farhat Leal Bottle: Aerobic Normal The [facility] Comment on above: Performed By: #### B CID2 ####[facility] Vpwqolzxtd0640 [place] [address]Dr. Yilorir Leal C. neoformans/gattii Not detected Normal NOT DETECTED The [facility] Comment on above: Performed By: #### B CID2 ####[facility] Zbphtaiicj1039 [place] [address]Dr. Yilorri Leal Disha albicans Not detected Normal NOT DETECTED The [facility] Comment on above: Performed By: #### B CID2 ####[facility] Ntbgafkzvl4257 [place] [phone]. Yilan Leal Disha auris Not detected Normal NOT DETECTED The [facility] Comment on above: Performed By: #### B CID2 ####[facility] Ymgscylpod8291 [place] [phone]. Yilan Leal Disha glabrata Not detected Normal NOT DETECTED The [facility] Comment on above: Performed By: #### B CID2 ####[facility] Gdtmeguhmf5754 [place] [phone]. Yilan Leal Disha Krusei Not detected Normal NOT DETECTED The [facility] Comment on above: Performed By: #### B CID2 ####[facility] Iykhvrczew7[address] [place], [place] [address]Dr. Yilan Leal Disha Parapsilosis Not detected Normal NOT DETECTED The [facility] Comment on above: Performed By: #### B CID2 ####[facility] Myczsxcury1874 [place] [address]Dr. Yilorri Leal Disha Tropicalis Not detected Normal NOT DETECTED [facility] Comment on above: Performed By: #### B CID2 ####[facility] Pqpjfududd08[address] [place], [place] [address]Dr. Farhat Leal CTX-M Resistant Gene Not Applicable Normal NOT DETECTE D [facility] Comment on above: Performed By: #### B CID2 ####[facility] Llqhafggfj3597 [place] [address]Dr. Yilorri Leal E. Cloacae complex Not detected Normal NOT DETECTED [facility] Comment on above: Performed By: #### B CID2 ####[facility] Epwxhyupin1862 [place] [phone]. Yilan Leal E. faecalis Not detected Normal NOT DETECTED The [facility] Comment on above: Performed By: #### B CID2 ####[facility] Jnqmoelvsf18[address] [place], [place] [address]Dr. Yilorri Leal E. faecium Not detected Normal NOT DETECTED The [facility] Comment on above: Performed By: #### B CID2 ####[facility] Tpkvyuysyw6019 [place] [address]Dr. Madelynlorri Leal Enterobacteriaceae Not detected Normal NOT DETECTED [facility] Comment on above: Performed By: #### B CID2 ####[facility] Djguvtyfcn28[address] [place], [place] [address]Dr. Farhat Leal Escherichia coli Not detected Normal NOT DETECTED The [facility] Comment on above: Performed By: #### B CID2 ####[facility] Mgkretrwql1079[address] [place], [place] [address]Dr. Farhat Leal H. influenzae Not detected Normal NOT DETECTED The [facility] Comment on above: Performed By: #### B CID2 ####[facility] Wlublnvpoc04[address] [place], [place] [address]Dr. Farhat Leal IMP Resistant Gene Not Applicable Normal NOT DETECTED [facility] Comment on above: Performed By: #### B CID2 ####[facility] Levnlxwczz1248[address] [place], [place] [address]Dr. Farhat Leal K. oxytoca Not detected Normal NOT DETECTED The [facility] Comment on above: Performed By: #### B CID2 ####[facility] Wxephafhzy166[address] [place], [place] [address]Dr. Madelynlorri Leal K. pneumoniae Not detected Normal NOT DETECTED The [facility] Comment on above: Performed By: #### B CID2 ####[facility] Ujnqiwyfmy1945[address] [place], [place] [address]Dr. Madelynlorri Leal Klebsiella aerogenes Not detected Normal NOT DETECTED The [facility] Comment on above: Performed By: #### B CID2 ####[facility] Boyzzjwets409[address] [place], [place] [address]Dr. Farhat Leal KPC Resistant Gene Not Applicable Normal NOT DETECTED The [facility] Comment on above: Performed By: #### B CID2 ####[facility] Fxptiuqfwm0[address] [place], [place] [address]Dr. Farhat Leal List. monocytogenes Not detected Normal NOT DETECTED [facility] Comment on above: Performed By: #### B CID2 ####[facility] Pimbsddter2599[address] [place], [place] [address]Dr. Farhat Leal Mcr-1 Resistant Gene Not Applicable Normal NOT DETECTE D [facility] Comment on above: Performed By: #### B CID2 ####[facility] Dexdaurnfv808[address] [place], [place] [address]Dr. Farhat Leal mecA/C Not Applicable Normal NOT DETECTED [facility] Comment on above: Performed By: #### B CID2 ####[facility] Dodgvvcyfc6596[address] [place], [place] [address]Dr. Farhat Leal mecA/C MREJ Detected Abnormal NOT DETECTED The [facility] Comment on above: Performed By: #### B CID2 ####[facility] Jrnxnsqxac1164[address] [place], [place] [address]Dr. Farhat Leal N. meningitidis Not detected Normal NOT DETECTED The [facility] Comment on above: Performed By: #### B CID2 ####[facility] Ikrikjcbbz6564[address] [place], [place] [address]Dr. Farhat Leal NDM Resistant Gene Not Applicable Normal NOT DETECTED The [facility] Comment on above: Performed By: #### B CID2 ####[facility] Njjxlqhpgm9[address] [place], [place] [address]Dr. Farhat Leal Oxa-48-like Not Applicable Normal NOT DETECTED The [facility] Comment on above: Performed By: #### B CID2 ####[facility] Yaweckapip0944[address] [place], [place] [address]Dr. Farhat Leal Proteus Not detected Normal NOT DETECTED The [facility] Comment on above: Performed By: #### B CID2 ####[facility] Ffgmxnosqw980[address] [place], [place] [address]Dr. Farhat Leal Pseud. aeruginosa Not detected Normal NOT DETECTED The [facility] Comment on above: Performed By: #### B CID2 ####[facility] Ylrrgujrnc73[address] [place], [place] [address]Dr. Farhat Leal S. maltophilia Not detected Normal NOT DETECTED The [facility] Comment on above: Performed By: #### B CID2 ####[facility] Mgczewfhfb6859[address] [place], [place] [address]Dr. Farhat Leal Salmonella Not detected Normal NOT DETECTED The [facility] Comment on above: Performed By: #### B CID2 ####[facility] Xauzcuynup44[address] [place], [place] [address]Dr. Farhat Leal Seratia marcescens Not detected Normal NOT DETECTED [facility] Comment on above: Performed By: #### B CID2 ####[facility] Gjvrpjskbf2295 [place] [phone]. Farhat Leal Site: Rt Hand Normal The [facility] Comment on above: Performed By: #### B CID2 ####[facility] Lbkuwzxncy[address] [place], [place] [address]Dr. Farhat Elvis Staph. aureus Detected Abnormal NOT DETECTED The [facility] Comment on above: Performed By: #### B CID2 ####[facility] Dyzcwzwriv9[address] [place], [place] [address]Dr. Madelynlorri Leal Staph. epidermidis Not detected Normal NOT DETECTED [facility] Comment on above: Performed By: #### B CID2 ####[facility] Cxhqqenidl40[address] [place], [place] [address]Dr. Farhat Leal Staph. lugdunensis Not detected Normal NOT DETECTED [facility] Comment on above: Performed By: #### B CID2 ####[facility] Aujhwsalmr7[address] [place], [place] [address]Dr. Farhat Leal Staphylococcus Detected Abnormal NOT DETECTED [facility] Comment on above: Performed By: #### B CID2 ####[facility] Bincguaxra313[address] [place], [place] [address]Dr. Madelynlorri Leal Strep. agalactiae Not detected Normal NOT DETECTED The [facility] Comment on above: Performed By: #### B CID2 ####[facility] Pisjfbucaw32[address] [place], [place] [address]Dr. Madelynlorri Leal Strep. pneumoniae Not detected Normal NOT DETECTED The [facility] Comment on above: Performed By: #### B CID2 ####[facility] Jnozuzhelg[address] [place], [place] [address]Dr. Farhat Leal Strep. pyogenes Not detected Normal NOT DETECTED The [facility] Comment on above: Performed By: #### B CID2 ####[facility] Wzcvpsixno1459 [place] [address]Dr. Farhat Leal Streptococcus Not detected Normal NOT DETECTED The [facility] Comment on above: Performed By: #### B CID2 ####[facility] Mgqpydwddv0557 [place] [address]Dr. Farhat Leal Teodoro/B Resist. Gene Not Applicable Normal NOT DETECTED The [facility] Comment on above: Performed By: #### B CID2 ####[facility] Wlbyqtwkfq3904 [place] [address]Dr. Farhat Leal VIM Resistant Gene Not Applicable Normal NOT DETECTED The [facility] Comment on above: Performed By: #### B CID2 ####[facility] Pyvewlwbzz7[address] [place], [place] [address]Dr. Farhat Leal BNPon 11-23-2021 Natriuretic peptide B (Bld) [Mass/Vol] 32197.0 pg/mL Critically high <=1,800.0 The [facility] Comment on above: Performed By: #### C MP, CMADM, BNP ####[facility] Nhmbkwtkbf79[address] [place], [place] [address]Dr. Farhat Leal CARDIAC AMANDA ADMITon 022 CK [Catalytic activity/Vol] 41 U/L Normal 39-308 [facility] Comment on above: Performed By: #### C MP, CMADM, BNP ####[facility] Nvawyvpxbc1328 [place] [address]Dr. Farhat Leal CK.MB [Mass/Vol] 0.98 ng/mL Normal <=3.60 [facility] Comment on above: Performed By: #### C MP, CMADM, BNP ####[facility] Lujasdwhfo65[address] [place], [place] [address]Dr. Farhat Leal HSTROP 30.1 pg/mL Normal 4.0-76.1 The [facility] Comment on above: Result Comment: CUT- OFF POINTS HAVE BEEN ESTABLISHED BASED ON THE FOURTH UNIVERSAL DEFINITIONS OF MYOCARDIALINFARCTION. THE UPPER REFERENCE LIMIT (URL) OF TROPONIN, DEFINED THE 99TH PERCENTILE OFcTnI DISTRIBUTION IN A REFERENCE POPULATION, HAS BEEN CONFIRMED THE DECISION THRESHOLDFOR IN DIAGNOSIS. Performed By: #### C MP, CMADM, BNP ####[facility] Moyycvlxmc3616 [place] [phone]. Farhat Leal VALERIA 160 ng/mL Critically high 16-96 [facility] Comment on above: Performed By: #### C MP, CMADM, BNP ####[facility] Kmthfdslde7800 [place] [phone]. Farhat Elvis CBC AUTO DIFFon 11-23-2021 BASO # 0.0 103/ul Normal 0.0-0.1 [facility] Comment on above: Performed By: #### C BC ####[facility] Prwyfmetdh6680 [place] [address]Dr. Madelynlorri Leal Basophils/100 WBC (Bld) 0.2 % Normal 0.2-2.0 [facility] Comment on above: Performed By: #### C BC ####[facility] Inpechjeaa6434[address] [place], [place] [address]Dr. Farhat Leal EO # 0.0 103/ul Normal 0.0-0.7 [facility] Comment on above: Performed By: #### C BC ####[facility] Exhllcmcsi28[address] [place], [place] [address]Dr. Farhat Leal Eosinophils/100 WBC (Bld) 0.1 % Critically low 0.9-7.0 [facility] Comment on above: Performed By: #### C BC ####[facility] Cmqlmorutw5[address] [place], [place] [address]Dr. Farhat Leal Erythrocyte distribution width (RBC) [Ratio] 13.4 % Normal 11.0-15.0 The [facility] Comment on above: Performed By: #### C BC ####[facility] Ijnqibeenv20[address] [place], [place] [address]Dr. Madelynlorri Leal Hematocrit (Bld) [Volume fraction] 31.6 % Critically low 42.0-54.0 [facility] Comment on above: Performed By: #### C BC ####[facility] Ahihxpccsu[address] [place], [place] [address]Dr. Farhat Leal Hemoglobin (Bld) [Mass/Vol] 10.4 g/dL Critically low 14.0-18.0 [facility] Comment on above: Performed By: #### C BC ####[facility] Pawxejlnnx5[address] [place] [address]DrSkylar Leal IG # 0.11 10e3/ul Critically high 0.00-0.03 [facility] Comment on above: Performed By: #### C BC ####[facility] Ygrzebqpba8965 [place] [address]DrSkylar Leal IG % 0.7 % Critically high 0.0-0.5 [facility] Comment on above: Performed By: #### C BC ####[facility] Ubgdcmowdv8219 [place] [address]DrSkylar Leal LYMPH # 0.5 103/ul Critically low 1.2-3.8 [facility] Comment on above: Performed By: #### C BC ####[facility] Nfurkjutfk6816 [place] [address]DrSkylar Leal Lymphocytes/100 WBC (Bld) 2.8 % Critically low 20.5-60.0 [facility] Comment on above: Performed By: #### C BC ####[facility] Wfcxhgxtrk4643 [place] [address]DrSkylar Leal MANUAL DIFF REQ NO Normal The [facility] Comment on above: Performed By: #### C BC ####[facility] Nzukobdqri0183 [place] [address]DrSkylar Leal MCH (RBC) [Entitic mass] 29.8 pg Normal 25.9-34.0 [facility] Comment on above: Performed By: #### C BC ####[facility] Flbwsyxdaf6430 [place] [address]DrSkylar Leal MCHC (RBC) [Mass/Vol] 32.9 g/dL Normal 29.9-35.2 [facility] Comment on above: Performed By: #### C BC ####[facility] Lscxkscvuq7579 [place] [phone] Leal MCV (RBC) [Entitic vol] 90.5 fL Normal 80.0-94.0 [facility] Comment on above: Performed By: #### C BC ####[facility] Ysemiwebfj7686 [place] [phone] Joshilorri Elvis MONO # 1.3 103/ul Critically high 0.3-0.8 The [facility] Comment on above: Performed By: #### C BC ####[facility] Fiurolqxfb2357 [place] [address]DrSkylar Leal Monocytes/100 WBC (Bld) 8.3 % Normal 1.7-12.0 [facility] Comment on above: Performed By: #### C BC ####[facility] Zdrhqmvada0309 [place] [address]Dr. Madelynlorri Leal NEUT # 13.9 103/ul Critically high 1.4-6.5 [facility] Comment on above: Performed By: #### C BC ####[facility] Etnmaandkw1421 [place] [address]Dr. Farhat Leal Neutrophils/100 WBC (Bld) 87.9 % Critically high 43.0-75.0 [facility] Comment on above: Performed By: #### C BC ####[facility] Yvtnkxezlb0407 [place] [phone] Leal Platelet mean volume (Bld) [Entitic vol] 9.3 fL Critically low 9.5-13.5 [facility] Comment on above: Performed By: #### C BC ####[facility] Sykguyrfah26[address] [place] [phone]. Farhat Leal PLT 390 103/ul Normal 150-450 [facility] Comment on above: Performed By: #### C BC ####[facility] Zhanqzoqnj4661 [place] [phone] Leal RBC 3.49 106/ul Critically low 4.70-6.10 [facility] Comment on above: Performed By: #### C BC ####[facility] Lekdyhcnzy2728 [place] [phone] Leal WBC 15.9 103/ul Critically high 4.0-11.0 [facility] Comment on above: Performed By: #### C BC ####[facility] Konrqeyfou14[address] [place], [place] [address]. Far[address] Le[address] CT HEAD WO CONon 11-23-2021 CT HEAD WO CON Normal [facility] CULTURE BLOODon 11-23-2021 Microscopic examination of blood, culture Culture Observations: NO GROWTH AT 5 DAYS. Normal [facility] Comment on above: Performed By: #### B LDCX2 ####[facility] Se[address]oblylzn29[address] [place], [place] [address]Bl. Farhat Leal Covid-19 PCR (CVDTBH)on SARS-CoV-2 (COVID-19) RNA JOSH+probe Ql (Unsp spec) Not detected Normal NOT DETECTED [facility] Comment on above: Result Comment: [...] for this test is supported by the Electroencephalogram Technologist of Health and Human Service's declaration that [...] be used). Performed By: #### C VDTBH ####[facility] Ixqbynmgja5984 [place], [place] [address]Qv. Farhat Leal LACTATE/LACTIC ACIDon 2021 Lactate [Moles/Vol] 1.3 mmol/L Normal 0.4-1.9 [facility] Comment on above: Performed By: #### L ACT ####[facility] Zlvofcnmzs7739 [place] [phone]. Farhat Leal Lactate [Moles/Vol] 1.3 mmol/L Normal 0.4-1.9 [facility] Comment on above: Performed By: #### L ACT ####[facility] Yyrlvgprqj7004 [place] [address]Dr. Farhat Leal POINT OF CARE GLUCOSEon 10-0 Glucose [Mass/Vol] 252 mg/dL Critically high 74-106 [facility] Comment on above: Performed By: #### P OCGLUC ####[facility] Pqriesbnhv6827 [place] [address]Dr. Farhat Leal PROF 14(COMP METB)on 022 Albumin [Mass/Vol] 1.6 g/dL Critically low 3.4-5.0 [facility] Comment on above: Performed By: #### C MP, CMADM, BNP ####[facility] Mpjboqbvhs0847 [place] [address]Dr. Farhat Leal Albumin/Globulin [Mass ratio] 0.4 {ratio} Normal [facility] Comment on above: Performed By: #### C MP, CMADM, BNP ####[facility] Baqhcypjvn8227 [place] [address]Dr. Farhat Leal ALP [Catalytic activity/Vol] 98 U/L Normal 46-116 [facility] Comment on above: Performed By: #### C MP, CMADM, BNP ####[facility] Icvojnitvh5573 [place] [address]Dr. Farhat Leal ALT [Catalytic activity/Vol] 52 U/L Normal 16-63 [facility] Comment on above: Performed By: #### C MP, CMADM, BNP ####[facility] Ftsfhgcdvk1319 [place] [address]Dr. Farhat Leal Anion gap [Moles/Vol] 9.8 mmol/L Normal [facility] Comment on above: Performed By: #### C MP, CMADM, BNP ####[facility] Vlnazhxpsh3718 [place] [address]Dr. Farhat Leal AST [Catalytic activity/Vol] 122 U/L Critically high 15-37 [facility] Comment on above: Performed By: #### C MP, CMADM, BNP ####[facility] Jtbzzddtyg1981 [place] [address]Dr. Farhat Leal Bilirubin [Mass/Vol] 0.7 mg/dL Normal 0.2-1.0 [facility] Comment on above: Performed By: #### C MP, CMADM, BNP ####[facility] Fcvzanpoaw7158 [place] [address]Dr. Farhat Leal Calcium [Mass/Vol] 8.6 mg/dL Normal 8.5-10.1 [facility] Comment on above: Performed By: #### C MP, CMADM, BNP ####[facility] Kyieggzmgc[address] [place], [place] [address]Dr. Farhat Leal Chloride [Moles/Vol] 95 mmol/L Critically low 98-107 [facility] Comment on above: Performed By: #### C MP, CMADM, BNP ####[facility] Vfskoykjhp[address] [place], [place] [address]Dr. Farhat Leal CO2 [Moles/Vol] 29.6 mmol/L Normal 21.0-32.0 [facility] Comment on above: Performed By: #### C MP, CMADM, BNP ####[facility] Arpfkpzqkn9002 [place] [address]Dr. Farhat Leal Creatinine [Mass/Vol] 1.49 mg/dL Critically high 0.70-1.30 [facility] Comment on above: Performed By: #### C MP, CMADM, BNP ####[facility] Ygrhaorkld6362 [place] [address]Dr. Farhat Leal EGFR-AF GHANAIAN 55 mL/min/1.73m2 Critically low >=60 [facility] Comment on above: Performed By: #### C MP, CMADM, BNP ####[facility] Kwucgwlbqm1271 [place] [address]Dr. Farhat Leal EGFR-NON AF GHANAIAN 46 mL/min/1.73m2 Critically low >=60 [facility] Comment on above: Performed By: #### C MP, CMADM, BNP ####[facility] Deqrwbiqau7547 [place] [address]Dr. Farhat Leal Globulin (S) [Mass/Vol] 4.3 g/dL Normal [facility] Comment on above: Performed By: #### C MP, CMADM, BNP ####[facility] Mabxcjidej5447 [place] [address]Dr. Farhat Leal Glucose [Mass/Vol] 213 mg/dL Critically high 74-106 [facility] Comment on above: Performed By: #### C MP, CMADM, BNP ####[facility] Aialutjtsd2220 [place] [address]Dr. Farhat Leal Potassium [Moles/Vol] 4.4 mmol/L Normal 3.5-5.1 [facility] Comment on above: Performed By: #### C MP, CMADM, BNP ####[facility] Tfotvtplwn[address] [place], [place] [address]Dr. Farhat Leal Protein [Mass/Vol] 5.9 g/dL Critically low 6.4-8.2 [facility] Comment on above: Performed By: #### C MP, CMADM, BNP ####[facility] Etpburbjeg[address] [place], [place] [address]Dr. Farhat Leal Sodium [Moles/Vol] 130 mmol/L Critically low 136-145 Th [facility] Comment on above: Performed By: #### C MP, CMADM, BNP ####[facility] Cgyxfbldxs[address] [place], [place] [address]Dr. Farhat Leal Urea nitrogen [Mass/Vol] 46.0 mg/dL Critically high 7.0-18.0 [facility] Comment on above: Performed By: #### C MP, CMADM, BNP ####[facility] Mgxwiyefhu[address] [place], [place] [address]Dr. Farhat Leal Urea nitrogen/Creatinine [Mass ratio] 30.9 mg/mg Normal [facility] Comment on above: Performed By: #### C MP, CMADM, BNP ####[facility] Ellqkllitt[address] [place], [place] [address]DrSkylar Leal PROTIMEon 10-09-2022 INR Coag (PPP) [Relative time] 2.55 {INR} Normal [facility] Comment on above: Performed By: #### P TT, PT ####[facility] [address]ctpom[address] [place] [address]DrSkylar Madelynlorri Leal INR GUIDELINES SEE BELOW Normal The [facility] Comment on above: Result Comment: MALINA RED INR: 2.0 - 3.0 CONDITIONS NOT LISTED BELOW 2.5 - 3.5 FOR PROSTHETIC HEART VALVE REPLACEMENT 2.5 - 3.5 RECURRENT THROMBOSIS Performed By: #### P TT, PT ####[facility] T[address]irjsxlo[address] [place], [place] [address]DrSkylar Leal PT Coag (PPP) [Time] 25.9 s Critically high 9.0-11.6 [facility] Comment on above: Performed By: #### P TT, PT ####[facility] Lrqnearsvb8[address] [place], [place] [address]DrSkylar Leal PTTon 11-23-2021 aPTT Coag (Bld) [Time] 39.9 s Critically high 22.3-36. 2 [facility] Comment on above: Performed By: #### P TT, PT ####[facility] T[address]vq[address]zj[address] [place], [place] [address]DrSkylar Madelynlorri Leal XR HEEL RT 2Von 11-23-2021 XR HEEL RT 2V Normal The [facility] XR FOOT RT MIN 3 VIEWSon XR FOOT RT MIN 3 VIEWS Normal [facility] US ARTERY LEG RTon 2 US ARTERY LEG RT Normal [facility] CBC AUTO DIFFon 09-24-2021 BASO # 0.1 103/ul Normal 0.0-0.1 [facility] Comment on above: Performed By: #### C BC ####[facility] Ljltniigau[address] [place], [place] [address]DrSkylar Leal Basophils/100 WBC (Bld) 0.7 % Normal 0.2-2.0 [facility] Comment on above: Performed By: #### C BC ####[facility] Kdjqmuhpsm5372 [place] [phone]. Farhat Leal EO # 0.3 103/ul Normal 0.0-0.7 [facility] Comment on above: Performed By: #### C BC ####[facility] Rtxxwmuphf4030 [place] [phone]. Farhat Leal Eosinophils/100 WBC (Bld) 3.9 % Normal 0.9-7.0 [facility] Comment on above: Performed By: #### C BC ####[facility] Brogofaocv45[address] [place] [address]Dr. Farhat Leal Erythrocyte distribution width (RBC) [Ratio] 12.6 % Normal 11.0-15.0 [facility] Comment on above: Performed By: #### C BC ####[facility] Qtqplylueu28[address] [place] [address]Dr. Farhat Leal Hematocrit (Bld) [Volume fraction] 38.9 % Critically low 42.0-54.0 [facility] Comment on above: Performed By: #### C BC ####[facility] Goeicjflbi[address] [place] [address]Dr. Farhat Leal Hemoglobin (Bld) [Mass/Vol] 12.8 g/dL Critically low 14.0-18.0 [facility] Comment on above: Performed By: #### C BC ####[facility] Eugafwiubl[address] [place] [address]Dr. Farhat Leal IG # 0.10 10e3/ul Critically high 0.00-0.03 The [facility] Comment on above: Performed By: #### C BC ####[facility] Hxhkjchbdp57[address] [place] [address]Dr. Farhat Leal IG % 1.2 % Critically high 0.0-0.5 The [facility] Comment on above: Performed By: #### C BC ####[facility] Qosnletzvl3212 [place] [address]Dr. Madelynlorri Leal LYMPH # 2.1 103/ul Normal 1.2-3.8 [facility] Comment on above: Performed By: #### C BC ####[facility] Afhvplihxt1743 [place] [phone]. Farhat Elvis Lymphocytes/100 WBC (Bld) 25.9 % Normal 20.5-60.0 [facility] Comment on above: Performed By: #### C BC ####[facility] Adgvvabmyy9075 [place] [phone]. Madelynlorri Leal MANUAL DIFF REQ NO Normal [facility] Comment on above: Performed By: #### C BC ####[facility] Hkqeqxbkkr1806 [place] [phone]. Farhat Elvis MCH (RBC) [Entitic mass] 31.1 pg Normal 25.9-34.0 [facility] Comment on above: Performed By: #### C BC ####[facility] Udtjlnnghc1824 [place] [address]Dr. Farhat Elvis MCHC (RBC) [Mass/Vol] 32.9 g/dL Normal 29.9-35.2 [facility] Comment on above: Performed By: #### C BC ####[facility] Srcvnguabu9186 [place] [address]Dr. Farhat Elvis MCV (RBC) [Entitic vol] 94.6 fL Critically high 80.0-94.0 [facility] Comment on above: Performed By: #### C BC ####[facility] Rcecunxoji7338 [place] [phone]. Farhat Leal MONO # 1.2 103/ul Critically high 0.3-0.8 [facility] Comment on above: Performed By: #### C BC ####[facility] Raphhkmjfy3634 [place] [phone]. Madelynlorri Leal Monocytes/100 WBC (Bld) 14.1 % Critically high 1.7-12.0 [facility] Comment on above: Performed By: #### C BC ####[facility] Xzkrgiamca23[address] [place], [place] [address]Dr. Farhat Leal NEUT # 4.4 103/ul Normal 1.4-6.5 [facility] Comment on above: Performed By: #### C BC ####[facility] Sjijllsxso2112 [place] [phone]. Farhat Leal Neutrophils/100 WBC (Bld) 54.2 % Normal 43.0-75.0 [facility] Comment on above: Performed By: #### C BC ####[facility] Zczxiibffo6912 [place] [phone]. Farhat Leal Platelet mean volume (Bld) [Entitic vol] 9.9 fL Normal 9.5-13.5 [facility] Comment on above: Performed By: #### C BC ####[facility] Aqoncsyjzv6203 [place] [phone]. Farhat Elvis PLT 224 103/ul Normal 150-450 [facility] Comment on above: Performed By: #### C BC ####[facility] Dxphfarany4002 [place] [phone]. Farhat Leal RBC 4.11 106/ul Critically low 4.70-6.10 [facility] Comment on above: Performed By: #### C BC ####[facility] Djobqslmfo0956 [place] [phone]. Farhat Leal WBC 8.2 103/ul Normal 4.0-11.0 [facility] Comment on above: Performed By: #### C BC ####[facility] Zemjyjglim8804 [place] [phone]. Farhat Leal PROF CHEM 8 (BAS METB)on Anion gap [Moles/Vol] 9.6 mmol/L Normal [facility] Comment on above: Performed By: #### B MP ####[facility] Nhyhezmodq7173 [place] [phone]. Farhat Leal Calcium [Mass/Vol] 8.6 mg/dL Normal 8.5-10.1 [facility] Comment on above: Performed By: #### B MP ####[facility] Zrfeegwhgb5453 [place] [phone]. Farhat Leal Chloride [Moles/Vol] 94 mmol/L Critically low 98-107 [facility] Comment on above: Performed By: #### B MP ####[facility] Ihflpocdam8950 [place] [phone]. Farhat Leal CO2 [Moles/Vol] 28.1 mmol/L Normal 21.0-32.0 [facility] Comment on above: Performed By: #### B MP ####[facility] Yjefoedkmq1795 [place] [phone]. Farhat Leal Creatinine [Mass/Vol] 1.91 mg/dL Critically high 0.70-1.30 [facility] Comment on above: Performed By: #### B MP ####[facility] Glbyclvzib8630 [place] [phone]. Farhat Leal EGFR-AF GHANAIAN 42 mL/min/1.73m2 Critically low >=60 [facility] Comment on above: Performed By: #### B MP ####[facility] Ilejlchcnq[address] [place], [place] [address]Dr. Farhat Leal EGFR-NON AF GHANAIAN 34 mL/min/1.73m2 Critically low >=60 [facility] Comment on above: Performed By: #### B MP ####[facility] Wwnanaopny9[address] [place], [place] [address]Dr. Madelynlorri Elvis Glucose [Mass/Vol] 314 mg/dL Critically high 74-106 T [facility] Comment on above: Performed By: #### B MP ####[facility] Icsgcbawwg[address] [place], [place] [address]Dr. Farhat Leal Potassium [Moles/Vol] 4.7 mmol/L Normal 3.5-5.1 [facility] Comment on above: Performed By: #### B MP ####[facility] Pfuoqkxjmx20[address] [place], [place] [address]Dr. Farhat Leal Sodium [Moles/Vol] 127 mmol/L Critically low 136-145 Th [facility] Comment on above: Performed By: #### B MP ####[facility] Pbthxylkaa45[address] [place], [place] [address]Dr. Farhat Leal Urea nitrogen [Mass/Vol] 79.0 mg/dL Critically high 7.0-18.0 [facility] Comment on above: Result Comment: repe ated Performed By: #### B MP ####[facility] Wluxtrxbzy5[address] [place], [place] [address]Dr. Farhat Leal Urea nitrogen/Creatinine [Mass ratio] 41.4 mg/mg Normal [facility] Comment on above: Performed By: #### B MP ####[facility] Stknxvgbgp96[address] [place], [place] [address]Dr. Farhat Elvis PTT HEPARIN MONITORon 2021 aPTT Coag (Bld) [Time] 56.7 s Critically high 39.5-54. 2 [facility] Comment on above: Performed By: #### P TTHEP ####[facility] Ltxwizgouc[address] [place], [place] [address]Dr. Farhat Elvis aPTT Coag (Bld) [Time] 42.7 s Normal 39.5-54.2 [facility] Comment on above: Performed By: #### P TTHEP ####[facility] Jdqkftivkv8[address] [place], [place] [address]Dr. Farhat Elvis CBC AUTO DIFFon 09-23-2021 BASO # 0.1 103/ul Normal 0.0-0.1 [facility] Comment on above: Performed By: #### C BC ####[facility] Wndxqdrrzv[address] [place], [place] [address]Dr. Farhat Leal Basophils/100 WBC (Bld) 0.6 % Normal 0.2-2.0 [facility] Comment on above: Performed By: #### C BC ####[facility] Spvbardqzf90[address] [place], [place] [address]Dr. Madelynlorri Elvis EO # 0.2 103/ul Normal 0.0-0.7 [facility] Comment on above: Performed By: #### C BC ####[facility] Wuulvwsmct39[address] [place], [place] [address]Dr. Farhat Leal Eosinophils/100 WBC (Bld) 2.6 % Normal 0.9-7.0 [facility] Comment on above: Performed By: #### C BC ####[facility] Gclcygylup[address] [place], [place] [address]Dr. Farhat Leal Erythrocyte distribution width (RBC) [Ratio] 12.4 % Normal 11.0-15.0 [facility] Comment on above: Performed By: #### C BC ####[facility] Mlvxguwlub4560 [place] [address]Dr. Farhat Leal Hematocrit (Bld) [Volume fraction] 38.4 % Critically low 42.0-54.0 [facility] Comment on above: Performed By: #### C BC ####[facility] Olooabzeyd0832 [place] [address]Dr. Farhat Leal Hemoglobin (Bld) [Mass/Vol] 12.8 g/dL Critically low 14.0-18.0 [facility] Comment on above: Performed By: #### C BC ####[facility] Hmvddspgvv3491 [place] [address]Dr. Farhat Elvis IG # 0.06 10e3/ul Critically high 0.00-0.03 [facility] Comment on above: Performed By: #### C BC ####[facility] Qhsnxvbmmf34[address] [place], [place] [address]Dr. Farhat Elvis IG % 0.8 % Critically high 0.0-0.5 [facility] Comment on above: Performed By: #### C BC ####[facility] Nqdaqrxnme[address] [place], [place] [address]Dr. Farhat Elvis LYMPH # 1.5 103/ul Normal 1.2-3.8 [facility] Comment on above: Performed By: #### C BC ####[facility] Sanwiggnie[address] [place], [place] [address]Dr. Madelynlorri Leal Lymphocytes/100 WBC (Bld) 19.7 % Critically low 20.5-60.0 [facility] Comment on above: Performed By: #### C BC ####[facility] Rilyyqcxbi[address] [place], [place] [address]Dr. Madelynlorri Leal MANUAL DIFF REQ NO Normal [facility] Comment on above: Performed By: #### C BC ####[facility] Fkuiyuazsq[address] [place], [place] [address]Dr. Farhat Leal MCH (RBC) [Entitic mass] 31.6 pg Normal 25.9-34.0 [facility] Comment on above: Performed By: #### C BC ####[facility] Erkcxlfqdy9081 [place] [address]Dr. Farhat Leal MCHC (RBC) [Mass/Vol] 33.3 g/dL Normal 29.9-35.2 [facility] Comment on above: Performed By: #### C BC ####[facility] Tiemkifvoy0657 [place] [address]Dr. Farhat Leal MCV (RBC) [Entitic vol] 94.8 fL Critically high 80.0-94.0 [facility] Comment on above: Performed By: #### C BC ####[facility] Vkysmkvfpl4677 [place] [address]Dr. Farhat Leal MONO # 1.0 103/ul Critically high 0.3-0.8 [facility] Comment on above: Performed By: #### C BC ####[facility] Ygdqevaiya[address] [place], [place] [address]Dr. Farhat Elvis Monocytes/100 WBC (Bld) 13.0 % Critically high 1.7-12.0 [facility] Comment on above: Performed By: #### C BC ####[facility] Mhpvxpavbk5499 [place] [address]Dr. Farhat Leal NEUT # 4.9 103/ul Normal 1.4-6.5 [facility] Comment on above: Performed By: #### C BC ####[facility] Nbcctiltpb0575 [place] [address]Dr. Farhat Elvis Neutrophils/100 WBC (Bld) 63.3 % Normal 43.0-75.0 [facility] Comment on above: Performed By: #### C BC ####[facility] Bnmxsyrbla2284 [place] [address]Dr. Farhat Leal Platelet mean volume (Bld) [Entitic vol] 10.7 fL Normal 9.5-13.5 [facility] Comment on above: Performed By: #### C BC ####[facility] Dzlptbnyoc0428 [place] [phone]. Farhat Leal PLT 205 103/ul Normal 150-450 [facility] Comment on above: Performed By: #### C BC ####[facility] Rfxlurczxv2598 [place] [address]Dr. Farhat Leal RBC 4.05 106/ul Critically low 4.70-6.10 [facility] Comment on above: Performed By: #### C BC ####[facility] Koocsiweql0815 [place] [phone]. Farhat Leal WBC 7.7 103/ul Normal 4.0-11.0 [facility] Comment on above: Performed By: #### C BC ####[facility] Hktplpvdjo[address] [place], [place] [address]Dr. Madelynlorri Leal PROF CHEM 8 (BAS METB)on Anion gap [Moles/Vol] 15.5 mmol/L Normal [facility] Comment on above: Performed By: #### B MP ####[facility] Raarabjvwu46[address] [place], [place] [address]Dr. Farhat Leal Calcium [Mass/Vol] 9.1 mg/dL Normal 8.5-10.1 [facility] Comment on above: Performed By: #### B MP ####[facility] Yucbbvhxqd47[address] [place], [place] [address]Dr. Farhat Leal Chloride [Moles/Vol] 92 mmol/L Critically low 98-107 [facility] Comment on above: Performed By: #### B MP ####[facility] Pscsinaslw[address] [place], [place] [address]Dr. Farhat Leal CO2 [Moles/Vol] 28.5 mmol/L Normal 21.0-32.0 [facility] Comment on above: Performed By: #### B MP ####[facility] Kfageczzon13[address] [place], [place] [address]Dr. Farhat Leal Creatinine [Mass/Vol] 1.84 mg/dL Critically high 0.70-1.30 [facility] Comment on above: Performed By: #### B MP ####[facility] Nfgcnnsccn8629 [place] [phone]. Madelynlorri Elvis EGFR-AF GHANAIAN 44 mL/min/1.73m2 Critically low >=60 [facility] Comment on above: Performed By: #### B MP ####[facility] Timbtkphuh9843 [place] [phone]. Farhat Leal EGFR-NON AF GHANAIAN 36 mL/min/1.73m2 Critically low >=60 [facility] Comment on above: Performed By: #### B MP ####[facility] Hjfdawtzlh8130 [place] [phone]. Farhat Leal Glucose [Mass/Vol] 267 mg/dL Critically high 74-106 T [facility] Comment on above: Performed By: #### B MP ####[facility] Vkihvcklzz3581 [place] [address]Dr. Farhat Leal Potassium [Moles/Vol] 5.0 mmol/L Normal 3.5-5.1 [facility] Comment on above: Performed By: #### B MP ####[facility] Tgaxmmoqyd1706 [place] [address]Dr. Farhat Leal Sodium [Moles/Vol] 131 mmol/L Critically low 136-145 [facility] Comment on above: Performed By: #### B MP ####[facility] Mknsdiwuho2893 [place] [address]Dr. Farhat Leal Urea nitrogen [Mass/Vol] 76.0 mg/dL Critically high 7.0-18.0 [facility] Comment on above: Performed By: #### B MP ####[facility] Dbfefpupih2232 [place] [address]Dr. Farhat Leal Urea nitrogen/Creatinine [Mass ratio] 41.3 mg/mg Normal [facility] Comment on above: Performed By: #### B MP ####[facility] W[address]qrrqjgze24[address] [place], [place] [address]Dr. Farhat Leal PTT HEPARIN MONITORon 2021 aPTT Coag (Bld) [Time] 45.5 s Normal 39.5-54.2 [facility] Comment on above: Performed By: #### P TTHEP ####[facility] Fkfwcjhtvc17[address] [place], [place] [address]Dr. Farhat Leal aPTT Coag (Bld) [Time] 74.7 s Critically high 39.5-54. 2 [facility] Comment on above: Result Comment: repe ated Performed By: #### P TTHEP ####[facility] Xxidsdgzdr4[address] [place], [place] [address]Dr. Farhat Elvis aPTT Coag (Bld) [Time] 57.2 s Critically high 39.5-54. 2 [facility] Comment on above: Performed By: #### P TTHEP ####[facility] Cnzfwbmhow57[address] [place], [place] [address]Dr. Farhat Elvis CBC AUTO DIFFon 09-22-2021 BASO # 0.1 103/ul Normal 0.0-0.1 [facility] Comment on above: Performed By: #### C BC ####[facility] Wneoucimhv0[address] [place], [place] [address]Dr. Madelynlorri Leal Basophils/100 WBC (Bld) 0.7 % Normal 0.2-2.0 [facility] Comment on above: Performed By: #### C BC ####[facility] Igyuuxvcfk9[address] [place], [place] [address]Dr. Farhat Elvis EO # 0.3 103/ul Normal 0.0-0.7 [facility] Comment on above: Performed By: #### C BC ####[facility] Ttdhuzpbwi74[address] [place], [place] [address]Dr. Fahrat Leal Eosinophils/100 WBC (Bld) 3.2 % Normal 0.9-7.0 [facility] Comment on above: Performed By: #### C BC ####[facility] Meeeqauvwf45[address] [place], [place] [address]Dr. Farhat Leal Erythrocyte distribution width (RBC) [Ratio] 12.5 % Normal 11.0-15.0 [facility] Comment on above: Performed By: #### C BC ####[facility] Czxfrqisdo9310 [place] [address]Dr. Farhat Leal Hematocrit (Bld) [Volume fraction] 40.5 % Critically low 42.0-54.0 [facility] Comment on above: Performed By: #### C BC ####[facility] Uagldjuzlc5417 [place] [address]Dr. Farhat Leal Hemoglobin (Bld) [Mass/Vol] 13.4 g/dL Critically low 14.0-18.0 [facility] Comment on above: Performed By: #### C BC ####[facility] Teibwijxkf2972 [place] [address]Dr. Farhat Elvis IG # 0.11 10e3/ul Critically high 0.00-0.03 [facility] Comment on above: Performed By: #### C BC ####[facility] Xcpmmfmspy3828 [place] [address]Dr. Farhat Leal IG % 1.3 % Critically high 0.0-0.5 [facility] Comment on above: Performed By: #### C BC ####[facility] Acquqfothj9298 [place] [address]Dr. Madelynlorri Leal LYMPH # 1.7 103/ul Normal 1.2-3.8 [facility] Comment on above: Performed By: #### C BC ####[facility] Onznfwjstc2451 [place] [address]Dr. Farhat Elvis Lymphocytes/100 WBC (Bld) 19.6 % Critically low 20.5-60.0 [facility] Comment on above: Performed By: #### C BC ####[facility] Pqbmgbxmfc2019 [place] [address]Dr. Madelynlorri Leal MANUAL DIFF REQ NO Normal [facility] Comment on above: Performed By: #### C BC ####[facility] Odwlvcjidz25[address] [place], [place] [address]Dr. Farhat Elvis MCH (RBC) [Entitic mass] 31.1 pg Normal 25.9-34.0 [facility] Comment on above: Performed By: #### C BC ####[facility] Pupqlwreof[address] [place], [place] [address]Dr. Farhat Leal MCHC (RBC) [Mass/Vol] 33.1 g/dL Normal 29.9-35.2 [facility] Comment on above: Performed By: #### C BC ####[facility] Taizljlrsn4983 [place] [phone]. Farhat Leal MCV (RBC) [Entitic vol] 94.0 fL Normal 80.0-94.0 [facility] Comment on above: Performed By: #### C BC ####[facility] Uuaoeurezc7412 [place] [phone]. Farhat Leal MONO # 1.1 103/ul Critically high 0.3-0.8 [facility] Comment on above: Performed By: #### C BC ####[facility] Oayykrxexk9172 [place] [address]Dr. Farhat Elvis Monocytes/100 WBC (Bld) 12.7 % Critically high 1.7-12.0 [facility] Comment on above: Performed By: #### C BC ####[facility] Ftzouxhtxx[address] [place], [place] [address]Dr. Farhat Leal NEUT # 5.3 103/ul Normal 1.4-6.5 [facility] Comment on above: Performed By: #### C BC ####[facility] Srtyspmpxu[address] [place], [place] [address]Dr. Farhat Elvis Neutrophils/100 WBC (Bld) 62.5 % Normal 43.0-75.0 [facility] Comment on above: Performed By: #### C BC ####[facility] Iwjqfbkiew[address] [place], [place] [address]Dr. Farhat Leal Platelet mean volume (Bld) [Entitic vol] 10.1 fL Normal 9.5-13.5 [facility] Comment on above: Performed By: #### C BC ####[facility] Jxnvjtopor[address] [place], [place] [address]Dr. Farhat Elvis PLT 220 103/ul Normal 150-450 [facility] Comment on above: Performed By: #### C BC ####[facility] Hqlncdbdgm0844 [place] [address]Dr. Madelynlorri Elvis RBC 4.31 106/ul Critically low 4.70-6.10 [facility] Comment on above: Performed By: #### C BC ####[facility] Mtzofgkgba7243 [place] [address]Dr. Farhat Leal WBC 8.4 103/ul Normal 4.0-11.0 [facility] Comment on above: Performed By: #### C BC ####[facility] Vvsarwfhqb7966 [place] [address]Dr. Farhat Leal PROF CHEM 8 (BAS METB)on Anion gap [Moles/Vol] 15.5 mmol/L Normal [facility] Comment on above: Performed By: #### B MP ####[facility] Tqebwhkpus216[address] [place], [place] [address]Dr. Farhat Leal Calcium [Mass/Vol] 8.9 mg/dL Normal 8.5-10.1 [facility] Comment on above: Performed By: #### B MP ####[facility] Jyedfhqyfr69[address] [place], [place] [address]Dr. Farhat Leal Chloride [Moles/Vol] 92 mmol/L Critically low 98-107 [facility] Comment on above: Performed By: #### B MP ####[facility] Ixztybqbit2189 [place] [address]Dr. Farhat Leal CO2 [Moles/Vol] 25.7 mmol/L Normal 21.0-32.0 [facility] Comment on above: Performed By: #### B MP ####[facility] Iybidyceud9951 [place] [address]Dr. Farhat Leal Creatinine [Mass/Vol] 1.85 mg/dL Critically high 0.70-1.30 [facility] Comment on above: Performed By: #### B MP ####[facility] Qmojnxnysm[address] [place], [place] [address]Dr. Farhat Leal EGFR-AF GHANAIAN 43 mL/min/1.73m2 Critically low >=60 [facility] Comment on above: Performed By: #### B MP ####[facility] Uycykjcasn[address] [place], [place] [address]Dr. Madelynlorri Elvis EGFR-NON AF GHANAIAN 36 mL/min/1.73m2 Critically low >=60 [facility] Comment on above: Performed By: #### B MP ####[facility] Lulidzimbn79[address] [place], [place] [address]Dr. Farhat Leal Glucose [Mass/Vol] 410 mg/dL Critically high 74-106 T [facility] Comment on above: Performed By: #### B MP ####[facility] Xrnhuajovm[address] [place], [place] [address]Dr. Farhat Leal Potassium [Moles/Vol] 5.2 mmol/L Critically high 3.5-5.1 [facility] Comment on above: Performed By: #### B MP ####[facility] Cfgnadwzzk3[address] [place], [place] [address]Dr. Farhat Leal Sodium [Moles/Vol] 128 mmol/L Critically low 136-145 Th [facility] Comment on above: Performed By: #### B MP ####[facility] Uxquoknycd6[address] [place], [place] [address]Dr. Farhat Leal Urea nitrogen [Mass/Vol] 75.0 mg/dL Critically high 7.0-18.0 [facility] Comment on above: Performed By: #### B MP ####[facility] Rkrriafxqu[address] [place], [place] [address]Dr. Farhat Leal Urea nitrogen/Creatinine [Mass ratio] 40.5 mg/mg Normal [facility] Comment on above: Performed By: #### B MP ####[facility] V[address]zqptqra[address] [place], [place] [address]Dr. Farhat Leal PTT HEPARIN MONITORon 2021 aPTT Coag (Bld) [Time] 53.8 s Normal 39.5-54.2 Th [facility] Comment on above: Performed By: #### P TTHEP ####[facility] C[address]gunlxzr[address] [place], [place] [address]Dr. Farhat Leal aPTT Coag (Bld) [Time] 46.1 s Normal 39.5-54.2 Th [facility] Comment on above: Performed By: #### P TTHEP ####[facility] V[address]txorrnjr[address] [place], [place] [address]Dr. Farhat Leal aPTT Coag (Bld) [Time] 55.6 s Critically high 39.5-54. 2 [facility] Comment on above: Performed By: #### P TTHEP ####[facility] H[address]qqqkgtw[address] [place], [place] [address]Dr. Farhat Elvis aPTT Coag (Bld) [Time] 51.2 s Normal 39.5-54.2 Th [facility] Comment on above: Performed By: #### P TTHEP ####[facility] Jcoajgxctd[address] [place], [place] [address]Dr. Farhat Elvis CBC AUTO DIFFon 09-21-2021 BASO # 0.1 103/ul Normal 0.0-0.1 [facility] Comment on above: Performed By: #### C BC ####[facility] B[address]qtxmtwtb[address] [place], [place] [address]Dr. Farhat Leal Basophils/100 WBC (Bld) 0.8 % Normal 0.2-2.0 [facility] Comment on above: Performed By: #### C BC ####[facility] Ynujvzzhow[address] [place], [place] [address]Dr. Farhat Elvis EO # 0.4 103/ul Normal 0.0-0.7 [facility] Comment on above: Performed By: #### C BC ####[facility] Qnnlflsmfi[address] [place], [place] [address]Dr. Farhat Leal Eosinophils/100 WBC (Bld) 4.3 % Normal 0.9-7.0 [facility] Comment on above: Performed By: #### C BC ####[facility] Rmpmebtlpg16[address] [place], [place] [address]Dr. Farhat Elvis Erythrocyte distribution width (RBC) [Ratio] 12.5 % Normal 11.0-15.0 [facility] Comment on above: Performed By: #### C BC ####[facility] Mrvbkrmlgk07[address] [place] [address]Dr. Farhat Leal Hematocrit (Bld) [Volume fraction] 40.8 % Critically low 42.0-54.0 [facility] Comment on above: Performed By: #### C BC ####[facility] Cbqvvnhysv5826 [place] [address]Dr. Farhat Leal Hemoglobin (Bld) [Mass/Vol] 13.5 g/dL Critically low 14.0-18.0 [facility] Comment on above: Performed By: #### C BC ####[facility] Zkfduxeoag3449 [place] [address]Dr. Farhat Leal IG # 0.10 10e3/ul Critically high 0.00-0.03 [facility] Comment on above: Performed By: #### C BC ####[facility] Yckrgrukwk6363 [place] [address]Dr. Farhat Leal IG % 1.2 % Critically high 0.0-0.5 The [facility] Comment on above: Performed By: #### C BC ####[facility] Mestzmujce3153 [place] [address]Dr. Farhat Leal LYMPH # 1.3 103/ul Normal 1.2-3.8 [facility] Comment on above: Performed By: #### C BC ####[facility] Aqsbjrlpvf1253 [place] [address]Dr. Farhat Leal Lymphocytes/100 WBC (Bld) 15.4 % Critically low 20.5-60.0 [facility] Comment on above: Performed By: #### C BC ####[facility] Vdvoesucri0252 [place] [address]Dr. Madelynlorri Leal MANUAL DIFF REQ NO Normal [facility] Comment on above: Performed By: #### C BC ####[facility] Ydwrqymgbd[address] [place], [place] [address]Dr. Farhat Leal MCH (RBC) [Entitic mass] 31.0 pg Normal 25.9-34.0 [facility] Comment on above: Performed By: #### C BC ####[facility] Celryscpmu4428 [place] [phone]. Farhat Leal MCHC (RBC) [Mass/Vol] 33.1 g/dL Normal 29.9-35.2 [facility] Comment on above: Performed By: #### C BC ####[facility] Hwxoeusclk5754 [place] [phone]. Farhat Leal MCV (RBC) [Entitic vol] 93.8 fL Normal 80.0-94.0 [facility] Comment on above: Performed By: #### C BC ####[facility] Webgjohalm8994 [place] [phone]. Farhat Leal MONO # 1.2 103/ul Critically high 0.3-0.8 [facility] Comment on above: Performed By: #### C BC ####[facility] Homcaxomhb0975 [place] [address]Dr. Madelynlorri Leal Monocytes/100 WBC (Bld) 13.6 % Critically high 1.7-12.0 [facility] Comment on above: Performed By: #### C BC ####[facility] Oadahrwgmk7609 [place] [phone]. Farhat Leal NEUT # 5.5 103/ul Normal 1.4-6.5 [facility] Comment on above: Performed By: #### C BC ####[facility] Mbbwchduwk4081 [place] [phone]. Farhat Elvis Neutrophils/100 WBC (Bld) 64.7 % Normal 43.0-75.0 [facility] Comment on above: Performed By: #### C BC ####[facility] Hiivqsfnfu4458 [place] [phone]. Farhat Leal Platelet mean volume (Bld) [Entitic vol] 9.8 fL Normal 9.5-13.5 [facility] Comment on above: Performed By: #### C BC ####[facility] Eqgglwqnbl8441 [place] [phone]. Farhat Elvis PLT 206 103/ul Normal 150-450 [facility] Comment on above: Performed By: #### C BC ####[facility] Ynhififfvi0572 [place] [phone]. Farhat Leal RBC 4.35 106/ul Critically low 4.70-6.10 [facility] Comment on above: Performed By: #### C BC ####[facility] Vddwuosdtf7717 [place] [phone]. Farhat Leal WBC 8.4 103/ul Normal 4.0-11.0 [facility] Comment on above: Performed By: #### C BC ####[facility] Pyfvyuwxme5597 [place] [address]Dr. Farhat Leal PROF CHEM 8 (BAS METB)on Anion gap [Moles/Vol] 12.3 mmol/L Normal [facility] Comment on above: Performed By: #### B MP ####[facility] Axpjascwfv[address] [place], [place] [address]Dr. Farhat Leal Calcium [Mass/Vol] 8.6 mg/dL Normal 8.5-10.1 [facility] Comment on above: Performed By: #### B MP ####[facility] Ekhvpbwish89[address] [place], [place] [address]Dr. Farhat Leal Chloride [Moles/Vol] 94 mmol/L Critically low 98-107 [facility] Comment on above: Performed By: #### B MP ####[facility] Ebvotgswnn32[address] [place], [place] [address]Dr. Farhat Leal CO2 [Moles/Vol] 30.8 mmol/L Normal 21.0-32.0 [facility] Comment on above: Performed By: #### B MP ####[facility] Fvjvfcwlca[address] [place], [place] [address]Dr. Farhat Leal Creatinine [Mass/Vol] 1.99 mg/dL Critically high 0.70-1.30 [facility] Comment on above: Performed By: #### B MP ####[facility] Orgdztsqef7[address] [place], [place] [address]Dr. Farhat Leal EGFR-AF GHANAIAN 40 mL/min/1.73m2 Critically low >=60 [facility] Comment on above: Performed By: #### B MP ####[facility] Ixmkihzobc9004 [place] [address]Dr. Farhat Leal EGFR-NON AF GHANAIAN 33 mL/min/1.73m2 Critically low >=60 [facility] Comment on above: Performed By: #### B MP ####[facility] Czstedwifa1977 [place] [address]Dr. Farhat Leal Glucose [Mass/Vol] 264 mg/dL Critically high 74-106 T [facility] Comment on above: Performed By: #### B MP ####[facility] Ferwlafvsh9421 [place] [address]Dr. Farhat Leal Potassium [Moles/Vol] 5.1 mmol/L Normal 3.5-5.1 [facility] Comment on above: Performed By: #### B MP ####[facility] Lffogwemfp465[address] [place], [place] [address]Dr. Farhat Leal Sodium [Moles/Vol] 132 mmol/L Critically low 136-145 Th [facility] Comment on above: Performed By: #### B MP ####[facility] Wbloxxcnae230[address] [place], [place] [address]Dr. Farhat Leal Urea nitrogen [Mass/Vol] 72.0 mg/dL Critically high 7.0-18.0 [facility] Comment on above: Performed By: #### B MP ####[facility] Knarteysoa[address] [place], [place] [address]Dr. Farhat Leal Urea nitrogen/Creatinine [Mass ratio] 36.2 mg/mg Normal [facility] Comment on above: Performed By: #### B MP ####[facility] Ooubgqqxjw89[address] [place], [place] [address]Dr. Farhat Leal PTT HEPARIN MONITORon 2021 aPTT Coag (Bld) [Time] 126.9 s Critically high 39.5-54. 2 [facility] Comment on above: Performed By: #### P TTHEP ####[facility] Gvwzytktym46[address] [place], [place] [address]Dr. Farhat Leal aPTT Coag (Bld) [Time] 53.5 s Normal 39.5-54.2 Th [facility] Comment on above: Performed By: #### P TTHEP ####[facility] Ezcsuxblmv4354[address] [place], [place] [address]Dr. Farhat Leal aPTT Coag (Bld) [Time] 69.4 s Critically high 39.5-54. 2 [facility] Comment on above: Performed By: #### P TTHEP ####[facility] Iyurmmdcms36[address] [place], [place] [address]Dr. Farhat Leal aPTT Coag (Bld) [Time] 68.0 s Critically high 39.5-54. 2 [facility] Comment on above: Performed By: #### P TTHEP ####[facility] Cbeugyubuq[address] [place], [place] [address]Dr. Farhat Leal aPTT Coag (Bld) [Time] 45.3 s Normal 39.5-54.2 [facility] Comment on above: Performed By: #### P TTHEP ####[facility] Xtytcaadwj46[address] [place], [place] [address]Dr. Farhat Leal CBC AUTO DIFFon 09-20-2021 BASO # 0.1 103/ul Normal 0.0-0.1 [facility] Comment on above: Performed By: #### C BC ####[facility] Ftihiobwek230[address] [place], [place] [address]Dr. Farhat Elvis Basophils/100 WBC (Bld) 0.7 % Normal 0.2-2.0 [facility] Comment on above: Performed By: #### C BC ####[facility] Vhwvrdopff068[address] [place], [place] [address]Dr. Farhat Leal EO # 0.2 103/ul Normal 0.0-0.7 [facility] Comment on above: Performed By: #### C BC ####[facility] Gtbuzwwmvz53[address] [place], [place] [address]Dr. Farhat Elvis Eosinophils/100 WBC (Bld) 3.2 % Normal 0.9-7.0 [facility] Comment on above: Performed By: #### C BC ####[facility] Hmthudnmpr9614 [place] [phone]. Farhat Leal Erythrocyte distribution width (RBC) [Ratio] 12.4 % Normal 11.0-15.0 [facility] Comment on above: Performed By: #### C BC ####[facility] Adelvariyv1198 [place] [address]Dr. Farhat Leal Hematocrit (Bld) [Volume fraction] 40.1 % Critically low 42.0-54.0 [facility] Comment on above: Performed By: #### C BC ####[facility] Nqwbbysvfj6301 [place] [address]Dr. Farhat Leal Hemoglobin (Bld) [Mass/Vol] 13.4 g/dL Critically low 14.0-18.0 [facility] Comment on above: Performed By: #### C BC ####[facility] Nmsbxiknbm[address] [place], [place] [address]Dr. Farhat Leal IG # 0.08 10e3/ul Critically high 0.00-0.03 [facility] Comment on above: Performed By: #### C BC ####[facility] Oqsuxaslxj12[address] [place], [place] [address]Dr. Farhat Leal IG % 1.1 % Critically high 0.0-0.5 [facility] Comment on above: Performed By: #### C BC ####[facility] Uqjqesfbcu38[address] [place], [place] [address]Dr. Farhat Leal LYMPH # 1.3 103/ul Normal 1.2-3.8 [facility] Comment on above: Performed By: #### C BC ####[facility] Misxqnnwgs01[address] [place], [place] [address]Dr. Farhat Leal Lymphocytes/100 WBC (Bld) 17.3 % Critically low 20.5-60.0 [facility] Comment on above: Performed By: #### C BC ####[facility] Ykmunwmrpx07[address] [place], [place] [address]Dr. Farhat Leal MANUAL DIFF REQ NO Normal [facility] Comment on above: Performed By: #### C BC ####[facility] Oopftnlinw4933 [place] [phone]. Farhat Leal MCH (RBC) [Entitic mass] 31.2 pg Normal 25.9-34.0 [facility] Comment on above: Performed By: #### C BC ####[facility] Padakrabop4149 [place] [phone]. Farhat Leal MCHC (RBC) [Mass/Vol] 33.4 g/dL Normal 29.9-35.2 [facility] Comment on above: Performed By: #### C BC ####[facility] Bwcnloqduc4557 [place] [phone]. Farhat Lela MCV (RBC) [Entitic vol] 93.3 fL Normal 80.0-94.0 [facility] Comment on above: Performed By: #### C BC ####[facility] Imsydprqoy9042 [place] [address]Dr. Farhat Leal MONO # 0.9 103/ul Critically high 0.3-0.8 [facility] Comment on above: Performed By: #### C BC ####[facility] Vhejabknyb6372 [place] [address]Dr. Madelynlorri Leal Monocytes/100 WBC (Bld) 12.4 % Critically high 1.7-12.0 [facility] Comment on above: Performed By: #### C BC ####[facility] Zcwkxkgknk9[address] [place], [place] [address]Dr. Farhat Leal NEUT # 4.7 103/ul Normal 1.4-6.5 [facility] Comment on above: Performed By: #### C BC ####[facility] Ojkaqpgagx5223 [place] [phone]. Farhat Leal Neutrophils/100 WBC (Bld) 65.3 % Normal 43.0-75.0 [facility] Comment on above: Performed By: #### C BC ####[facility] Hrfxdtbjit0444 [place] [phone]. Madelynlorri Elvis Platelet mean volume (Bld) [Entitic vol] 9.9 fL Normal 9.5-13.5 [facility] Comment on above: Performed By: #### C BC ####[facility] Impepvijxj5812 [place] [address]Dr. Farhat Leal PLT 180 103/ul Normal 150-450 [facility] Comment on above: Performed By: #### C BC ####[facility] Rxbbwapqty1803 [place] [address]Dr. Farhat Leal RBC 4.30 106/ul Critically low 4.70-6.10 [facility] Comment on above: Performed By: #### C BC ####[facility] Zposzuevps7622 [place] [address]Dr. Farhat Leal WBC 7.2 103/ul Normal 4.0-11.0 [facility] Comment on above: Performed By: #### C BC ####[facility] Rktjztlybv8[address] [place], [place] [address]Dr. Farhat Leal PTT HEPARIN MONITORon 2021 aPTT Coag (Bld) [Time] 139.0 s Critically high 39.5-54. 2 [facility] Comment on above: Performed By: #### P TTHEP ####[facility] Sqvpncssqt60[address] [place], [place] [address]Dr. Farhat Leal aPTT Coag (Bld) [Time] 27.6 s Critically low 39.5-54.2 [facility] Comment on above: Performed By: #### P TTHEP ####[facility] Dnwyccocaq30[address] [place], [place] [address]Dr. Farhat Leal aPTT Coag (Bld) [Time] 121.0 s Critically high 39.5-54. 2 [facility] Comment on above: Performed By: #### P TTHEP ####[facility] Uqktgzdzxa7927[address] [place], [place] [address]Dr. Farhat Leal aPTT Coag (Bld) [Time] 26.7 s Critically low 39.5-54.2 [facility] Comment on above: Performed By: #### P TTHEP ####[facility] Fcosryxvap18[address] [place], [place] [address]Dr. Farhat Leal CBC AUTO DIFFon 09-19-2021 BASO # 0.0 103/ul Normal 0.0-0.1 [facility] Comment on above: Performed By: #### C BC ####[facility] Abtzqmlgey7825 [place] [address]Dr. Farhat Leal Basophils/100 WBC (Bld) 0.5 % Normal 0.2-2.0 [facility] Comment on above: Performed By: #### C BC ####[facility] Zvtjlejgpu2494 [place] [address]Dr. Farhat Leal EO # 0.2 103/ul Normal 0.0-0.7 [facility] Comment on above: Performed By: #### C BC ####[facility] Dqldaswgkg50[address] [place], [place] [address]Dr. Farhat Leal Eosinophils/100 WBC (Bld) 2.6 % Normal 0.9-7.0 [facility] Comment on above: Performed By: #### C BC ####[facility] Kqcxbaycgm427[address] [place], [place] [address]Dr. Farhat Leal Erythrocyte distribution width (RBC) [Ratio] 12.5 % Normal 11.0-15.0 [facility] Comment on above: Performed By: #### C BC ####[facility] Qhnqzijytz78[address] [place], [place] [address]Dr. Farhat Leal Hematocrit (Bld) [Volume fraction] 39.2 % Critically low 42.0-54.0 [facility] Comment on above: Performed By: #### C BC ####[facility] Ffpkmybbti6[address] [place], [place] [address]Dr. Farhat Leal Hemoglobin (Bld) [Mass/Vol] 13.3 g/dL Critically low 14.0-18.0 [facility] Comment on above: Performed By: #### C BC ####[facility] Xkwjlzstbu1623 [place] [address]Dr. Farhat Leal IG # 0.08 10e3/ul Critically high 0.00-0.03 The [facility] Comment on above: Performed By: #### C BC ####[facility] Xaixgbooep5572 [place] [phone]. Farhat Leal IG % 0.9 % Critically high 0.0-0.5 [facility] Comment on above: Performed By: #### C BC ####[facility] Vkwnloevug5159 [place] [phone]. Farhat Leal LYMPH # 1.5 103/ul Normal 1.2-3.8 [facility] Comment on above: Performed By: #### C BC ####[facility] Nwtrtyzhek0314 [place] [phone]. Farhat Leal Lymphocytes/100 WBC (Bld) 17.2 % Critically low 20.5-60.0 [facility] Comment on above: Performed By: #### C BC ####[facility] Bbohtjdrdp7817 [place] [phone]. Farhat Elvis MANUAL DIFF REQ NO Normal [facility] Comment on above: Performed By: #### C BC ####[facility] Wqgdwqeagl2196 [place] [phone]. Farhat Leal MCH (RBC) [Entitic mass] 31.7 pg Normal 25.9-34.0 [facility] Comment on above: Performed By: #### C BC ####[facility] Fmtalywtem2216 [place] [phone]. Farhat Leal MCHC (RBC) [Mass/Vol] 33.9 g/dL Normal 29.9-35.2 [facility] Comment on above: Performed By: #### C BC ####[facility] Uqbcgvtsjx3037 [place] [phone]. Farhat Leal MCV (RBC) [Entitic vol] 93.3 fL Normal 80.0-94.0 [facility] Comment on above: Performed By: #### C BC ####[facility] Wqlwwnvote3319 [place] [phone]. Farhat Elvis MONO # 1.2 103/ul Critically high 0.3-0.8 [facility] Comment on above: Performed By: #### C BC ####[facility] Fkmpvjrdsp9626 [place] [phone]. Farhat Leal Monocytes/100 WBC (Bld) 13.7 % Critically high 1.7-12.0 [facility] Comment on above: Performed By: #### C BC ####[facility] Pqzgrfkxgy6273 [place] [phone]. Farhat Leal NEUT # 5.5 103/ul Normal 1.4-6.5 [facility] Comment on above: Performed By: #### C BC ####[facility] Dxxnullvfo5399 [place] [phone]. Farhat Leal Neutrophils/100 WBC (Bld) 65.1 % Normal 43.0-75.0 [facility] Comment on above: Performed By: #### C BC ####[facility] Wynvkjgvvq9236 [place] [phone]. Farhat Leal Platelet mean volume (Bld) [Entitic vol] 9.6 fL Normal 9.5-13.5 [facility] Comment on above: Performed By: #### C BC ####[facility] Levmdcnyjd8521 [place] [phone]. Farhat Leal PLT 163 103/ul Normal 150-450 [facility] Comment on above: Performed By: #### C BC ####[facility] Lkmeumwser6980 [place] [phone]. Farhat Leal RBC 4.20 106/ul Critically low 4.70-6.10 [facility] Comment on above: Performed By: #### C BC ####[facility] Vlfvronija9494 [place] [phone]. Farhat Leal WBC 8.4 103/ul Normal 4.0-11.0 [facility] Comment on above: Performed By: #### C BC ####[facility] Hocbkojrvs0077 [place] [phone]. Farhat Leal POINT OF CARE GLUCOSEon 08-0 Glucose [Mass/Vol] 300 mg/dL Critically high 74-106 T [facility] Comment on above: Performed By: #### P OCGLUC ####[facility] Cqudajikjf0135 [place] [address]Dr. Farhat Leal POTASSIUMon 09-19-2021 Potassium [Moles/Vol] 4.9 mmol/L Normal 3.5-5.1 [facility] Comment on above: Performed By: #### K ####[facility] [address]jrugdij4[address] [place], [place] [address]Dr. Farhat Elvis PTT HEPARIN MONITORon 2021 aPTT Coag (Bld) [Time] 81.0 s Critically high 39.5-54. 2 [facility] Comment on above: Result Comment: Test Repeated. Critical Value Verified Performed By: #### P TTHEP ####[facility] Kbwgncnlxh18[address] [place], [place] [address]Dr. Farhat Elvis aPTT Coag (Bld) [Time] 101.2 s Critically high 39.5-54. 2 [facility] Comment on above: Performed By: #### P TTHEP ####[facility] Aavobzwxrj[address] [place], [place] [address]Dr. Farhat Elvis aPTT Coag (Bld) [Time] 23.4 s Critically low 39.5-54.2 [facility] Comment on above: Result Comment: repe ated Performed By: #### P TTHEP ####[facility] Nboqpfzanw88[address] [place], [place] [address]Dr. Farhat Elivs CBC AUTO DIFFon 09-18-2021 BASO # 0.0 103/ul Normal 0.0-0.1 [facility] Comment on above: Performed By: #### C BC ####[facility] B[address]prnfpxfo40[address] [place], [place] [address]Dr. Farhat Elvis BASO # 0.0 103/ul Normal 0.0-0.1 [facility] Comment on above: Performed By: #### C BC ####[facility] R[address]qqlcnzg7[address] [place], [place] [address]Dr. Farhat Leal Basophils/100 WBC (Bld) 0.4 % Normal 0.2-2.0 [facility] Comment on above: Performed By: #### C BC ####[facility] Ntjdpdevcl3765 [place], [place] [address]Ke. Farhat Leal Basophils/100 WBC (Bld) 0.4 % Normal 0.2-2.0 [facility] Comment on above: Performed By: #### C BC ####[facility] Iqrjsfzdnt3378 [place], [place] [address]c. Farhat Leal EO # 0.1 103/ul Normal 0.0-0.7 [facility] Comment on above: Performed By: #### C BC ####[facility] Juzentgykc5034 [place], [place] [address]Ne. Farhat Leal EO # 0.1 103/ul Normal 0.0-0.7 [facility] Comment on above: Performed By: #### C BC ####[facility] Shuibafmem1558 [place] [phone]. Farhat Leal Eosinophils/100 WBC (Bld) 1.1 % Normal 0.9-7.0 [facility] Comment on above: Performed By: #### C BC ####[facility] Nfnayktddp7509 [place] [phone]. Farhat Leal Eosinophils/100 WBC (Bld) 0.8 % Critically low 0.9-7.0 [facility] Comment on above: Performed By: #### C BC ####[facility] Ppzrtffoof9570 [place] [phone]. Farhat Leal Erythrocyte distribution width (RBC) [Ratio] 12.6 % Normal 11.0-15.0 [facility] Comment on above: Performed By: #### C BC ####[facility] Momovgrzph5205 [place] [phone]. Farhat Leal Erythrocyte distribution width (RBC) [Ratio] 12.4 % Normal 11.0-15.0 [facility] Comment on above: Performed By: #### C BC ####[facility] Qwzpqditba9069 [place] [phone]. Frahat Leal Hematocrit (Bld) [Volume fraction] 40.8 % Critically low 42.0-54.0 [facility] Comment on above: Performed By: #### C BC ####[facility] Avxuyehqif6086 [place] [phone]. Farhat Leal Hematocrit (Bld) [Volume fraction] 41.7 % Critically low 42.0-54.0 [facility] Comment on above: Performed By: #### C BC ####[facility] Qvaaxzavvp7083 [place] [address]Dr. Farhat Leal Hemoglobin (Bld) [Mass/Vol] 13.6 g/dL Critically low 14.0-18.0 [facility] Comment on above: Performed By: #### C BC ####[facility] Dkjdsfbxvi8095 [place] [address]Dr. Farhat Leal Hemoglobin (Bld) [Mass/Vol] 14.1 g/dL Normal 14.0-18.0 [facility] Comment on above: Performed By: #### C BC ####[facility] Vxyyuprhjn[address] [place], [place] [address]Dr. Farhat Leal IG # 0.08 10e3/ul Critically high 0.00-0.03 [facility] Comment on above: Performed By: #### C BC ####[facility] Dbvpvoqrtg13[address] [place], [place] [address]Dr. Farhat Leal IG # 0.06 10e3/ul Critically high 0.00-0.03 [facility] Comment on above: Performed By: #### C BC ####[facility] Ozreopebhu6[address] [place], [place] [address]Dr. Farhat Leal IG % 0.9 % Critically high 0.0-0.5 [facility] Comment on above: Performed By: #### C BC ####[facility] W[address]zwfshfp8[address] [place], [place] [address]Dr. Farhat Leal IG % 0.6 % Critically high 0.0-0.5 [facility] Comment on above: Performed By: #### C BC ####[facility] Nzyliliccu[address] [place], [place] [address]Dr. Farhat Leal LYMPH # 0.8 103/ul Critically low 1.2-3.8 The [facility] Comment on above: Performed By: #### C BC ####[facility] Gpwzbhlkcr9559 [place] [phone]. Farhat Leal LYMPH # 0.6 103/ul Critically low 1.2-3.8 The [facility] Comment on above: Performed By: #### C BC ####[facility] Fr[address]txynwy340[address] [place] [id number]. Farhat Leal Lymphocytes/100 WBC (Bld) 8.7 % Critically low 20.5-60.0 [facility] Comment on above: Performed By: #### C BC ####[facility] D[address]zobboaj[address] [place] [address]Dr. Farhat Leal Lymphocytes/100 WBC (Bld) 6.5 % Critically low 20.5-60.0 [facility] Comment on above: Performed By: #### C BC ####[facility] [address]ag[address] [place], [place] [address]Dr. Farhat Elvis MANUAL DIFF REQ NO Normal The [facility] Comment on above: Performed By: #### C BC ####[facility] [address]ov[address] [place] [address]Dr. Farhat Elvis MANUAL DIFF REQ NO Normal [facility] Comment on above: Performed By: #### C BC ####[facility] Rfbfkpcrpi6816 [place] [phone]. Farhat Elvis MCH (RBC) [Entitic mass] 31.6 pg Normal 25.9-34.0 The [facility] Comment on above: Performed By: #### C BC ####[facility] Qmgarrrhnu1818 [place] [phone]. Farhat Elvis MCH (RBC) [Entitic mass] 31.6 pg Normal 25.9-34.0 The [facility] Comment on above: Performed By: #### C BC ####[facility] Tfqeleatwo[address] [place], [place] [address]Dr. Farhat Elvis MCHC (RBC) [Mass/Vol] 33.3 g/dL Normal 29.9-35.2 The [facility] Comment on above: Performed By: #### C BC ####[facility] Jkaadpygjt40[address] [place] [phone]. Farhat Leal MCHC (RBC) [Mass/Vol] 33.8 g/dL Normal 29.9-35.2 The [facility] Comment on above: Performed By: #### C BC ####[facility] Lxtpuqxldi1905 [place] [phone]. Farhat Leal MCV (RBC) [Entitic vol] 94.9 fL Critically high 80.0-94.0 The [facility] Comment on above: Performed By: #### C BC ####[facility] Vlnozfqcrg1365 [place] [phone]. Farhat Leal MCV (RBC) [Entitic vol] 93.5 fL Normal 80.0-94.0 The [facility] Comment on above: Performed By: #### C BC ####[facility] U[address] [place], [place] [address]Dr. Farhat Leal MONO # 1.0 103/ul Critically high 0.3-0.8 The [facility] Comment on above: Performed By: #### C BC ####[facility] Swueqdwtmt3875 [place] [phone]. Farhat Leal MONO # 1.0 103/ul Critically high 0.3-0.8 The [facility] Comment on above: Performed By: #### C BC ####[facility] Dcmsnisojh5655 [place] [phone]. Farhat Leal Monocytes/100 WBC (Bld) 11.3 % Normal 1.7-12.0 The [facility] Comment on above: Performed By: #### C BC ####[facility] W[address]zyr[address] [place], [place] [id number]. Farhat Leal Monocytes/100 WBC (Bld) 10.4 % Normal 1.7-12.0 The [facility] Comment on above: Performed By: #### C BC ####[facility] Njuwutmutk[address] [place], [place] [address]Dr. Farhat Leal NEUT # 6.9 103/ul Critically high 1.4-6.5 [facility] Comment on above: Performed By: #### C BC ####[facility] Gqsjuvhmun44[address] [place] [address]Dr. Farhat Leal NEUT # 7.8 103/ul Critically high 1.4-6.5 [facility] Comment on above: Performed By: #### C BC ####[facility] Bbdbacieby[address] [place] [address]Dr. Farhat Leal Neutrophils/100 WBC (Bld) 77.6 % Critically high 43.0-75.0 [facility] Comment on above: Performed By: #### C BC ####[facility] Dcpgiyhcxo1705 [place] [address]Dr. Farhat Leal Neutrophils/100 WBC (Bld) 81.3 % Critically high 43.0-75.0 The [facility] Comment on above: Performed By: #### C BC ####[facility] [address]qatdhk[address] [place], [place] [address]Dr. Farhat Leal Platelet mean volume (Bld) [Entitic vol] 9.7 fL Normal 9.5-13.5 The [facility] Comment on above: Performed By: #### C BC ####[facility] Xxvzzuitxq[address] [place], [place] [address]Dr. Farhat Leal Platelet mean volume (Bld) [Entitic vol] 9.9 fL Normal 9.5-13.5 The [facility] Comment on above: Performed By: #### C BC ####[facility] Grwzxijjcu[address] [place], [place] [address]Dr. Farhat Leal PLT 171 103/ul Normal 150-450 The [facility] Comment on above: Performed By: #### C BC ####[facility] Y[address]qqfhmzu[address] [place], [place] [address]Dr. Farhat Leal PLT 169 103/ul Normal 150-450 The [facility] Comment on above: Performed By: #### C BC ####[facility] Gvakgenpae35[address] [place] [address]Dr. Farhat Leal RBC 4.30 106/ul Critically low 4.70-6.10 The [facility] Comment on above: Performed By: #### C BC ####[facility] Huck[address]jeyr22[address] [place], [place] [address]Xn. Farhat Leal RBC 4.46 106/ul Critically low 4.70-6.10 [facility] Comment on above: Performed By: #### C BC ####[facility] Nxrjxyaptq3047 [place], [place] [address]Sa. Farhat Leal WBC 8.9 103/ul Normal 4.0-11.0 The [facility] Comment on above: Performed By: #### C BC ####[facility] E[address]wvpqrcl2697 [place], [place] [address]Km. Farhat Leal WBC 9.6 103/ul Normal 4.0-11.0 The [facility] Comment on above: Performed By: #### C BC ####[facility] Wjmoptyyic0104 [place] [phone]. Farhat Leal Covid-19 PCR (CVDTB)on SARS-CoV-2 (COVID-19) RNA JOSH+probe Ql (Unsp spec) Not detected Normal NOT DETECTED The [facility] Comment on above: Result Comment: [...] for this test is supported by the Electroencephalogram Technologist of Health and Human Service's declaration that [...] be used). Performed By: #### C VDTBH ####[facility] Byahutcjys7[address] [place] [phone]. Farhat Leal PROF 14(COMP METB)on 022 Albumin [Mass/Vol] 2.5 g/dL Critically low 3.4-5.0 Th [facility] Comment on above: Performed By: #### T SH, CMP ####[facility] Atppvfgrsd66[address] [place] [address]Dr. Farhat Leal Albumin [Mass/Vol] 2.6 g/dL Critically low 3.4-5.0 Th [facility] Comment on above: Performed By: #### C MP ####[facility] N[address]fszrnm[address] [place], [place] [address]Dr. Farhat Leal Albumin/Globulin [Mass ratio] 0.7 {ratio} Normal [facility] Comment on above: Performed By: #### T MYRIAM, CMP ####[facility] Slmpqlnsuu[address] [place], [place] [address]Dr. Farhat Leal Albumin/Globulin [Mass ratio] 0.7 {ratio} Normal [facility] Comment on above: Performed By: #### C MP ####[facility] Zwbmitqxtl23[address] [place], [place] [address]Dr. Farhat Leal ALP [Catalytic activity/Vol] 83 U/L Normal 46-116 [facility] Comment on above: Performed By: #### T MYRIAM, CMP ####[facility] Fdxlfmwcmt5[address] [place], [place] [address]Dr. Madelynlorri Leal ALP [Catalytic activity/Vol] 88 U/L Normal 46-116 The [facility] Comment on above: Performed By: #### C MP ####[facility] Jydhzopsql88[address] [place], [place] [address]Dr. Farhat Leal ALT [Catalytic activity/Vol] 16 U/L Normal 16-63 The [facility] Comment on above: Performed By: #### T SH, CMP ####[facility] Oojgxsazqv[address] [place], [place] [address]Dr. Madelynlorri Leal ALT [Catalytic activity/Vol] 15 U/L Critically low 16-63 The [facility] Comment on above: Performed By: #### C MP ####[facility] Scqwzyihyt9792 [place] [phone]. Farhat Leal Anion gap [Moles/Vol] 9.7 mmol/L Normal [facility] Comment on above: Performed By: #### T SH, CMP ####[facility] Magwbycsvy[address] [place], [place] [address]Dr. Farhat Leal Anion gap [Moles/Vol] 11.7 mmol/L Normal [facility] Comment on above: Performed By: #### C MP ####[facility] Nzfshrbtgd[address] [place], [place] [address]Dr. Farhat Leal AST [Catalytic activity/Vol] 27 U/L Normal 15-37 [facility] Comment on above: Performed By: #### T SH, CMP ####[facility] Kilsgdmxws14[address] [place], [place] [address]Dr. Farhat Leal AST [Catalytic activity/Vol] 25 U/L Normal 15-37 [facility] Comment on above: Performed By: #### C MP ####[facility] Udkwphsncj30[address] [place], [place] [address]Dr. Madelynlan Leal Bilirubin [Mass/Vol] 0.5 mg/dL Normal 0.2-1.0 [facility] Comment on above: Performed By: #### T SH, CMP ####[facility] Ufeubuhzeb[address] [place], [place] [address]Dr. Madelynlan Leal Bilirubin [Mass/Vol] 0.6 mg/dL Normal 0.2-1.0 [facility] Comment on above: Performed By: #### C MP ####[facility] Xzpfwmypww12[address] [place], [place] [address]Dr. Madelynlan Leal Calcium [Mass/Vol] 8.8 mg/dL Normal 8.5-10.1 [facility] Comment on above: Performed By: #### T SH, CMP ####[facility] Okdlwkolmp[address] [place], [place] [address]Dr. Madelynlan Leal Calcium [Mass/Vol] 8.9 mg/dL Normal 8.5-10.1 The [facility] Comment on above: Performed By: #### C MP ####[facility] Ypjmytolir[address] [place], [place] [address]Dr. Yilan Leal Chloride [Moles/Vol] 95 mmol/L Critically low 98-107 [facility] Comment on above: Performed By: #### T SH, CMP ####[facility] Pxzoekyppe[address] [place], [place] [address]Dr. Yilan Leal Chloride [Moles/Vol] 93 mmol/L Critically low 98-107 [facility] Comment on above: Performed By: #### C MP ####[facility] Vos[address]hszqmn[address] [place], [place] [address]Dr. Yilan Leal CO2 [Moles/Vol] 30.5 mmol/L Normal 21.0-32.0 [facility] Comment on above: Performed By: #### T SH, CMP ####[facility] Rwpexzxihv6[address] [place], [place] [address]Dr. Yilan Leal CO2 [Moles/Vol] 28.9 mmol/L Normal 21.0-32.0 [facility] Comment on above: Performed By: #### C MP ####[facility] L[address]lnvlqzy[address] [place], [place] [address]Dr. Yilan Leal Creatinine [Mass/Vol] 2.18 mg/dL Critically high 0.70-1.30 [facility] Comment on above: Performed By: #### T SH, CMP ####[facility] Soirbilzdj3[address] [place], [place] [address]Dr. Yilan Leal Creatinine [Mass/Vol] 2.09 mg/dL Critically high 0.70-1.30 [facility] Comment on above: Performed By: #### C MP ####[facility] Xuermezyok[address] [place], [place] [address]Dr. Yilan Leal EGFR-AF GHANAIAN 36 mL/min/1.73m2 Critically low >=60 [facility] Comment on above: Performed By: #### T SH, CMP ####[facility] Wexzghimgr[address] [place], [place] [address]Dr. Yilan Leal EGFR-AF GHANAIAN 38 mL/min/1.73m2 Critically low >=60 [facility] Comment on above: Performed By: #### C MP ####[facility] Wjvjxkcwfk3118 [place] [phone]. Yilan Leal EGFR-NON AF GHANAIAN 30 mL/min/1.73m2 Critically low >=60 [facility] Comment on above: Performed By: #### T SH, CMP ####[facility] Kqzisumeyo5828 [place] [phone]. Yilan Leal EGFR-NON AF GHANAIAN 31 mL/min/1.73m2 Critically low >=60 [facility] Comment on above: Performed By: #### C MP ####[facility] Ggvqnckhtf1994 [place] [phone]. Madelynlan Leal Globulin (S) [Mass/Vol] 3.5 g/dL Normal [facility] Comment on above: Performed By: #### T SH, CMP ####[facility] Xcndrggyga467[address] [place], [place] [address]Dr. Madelynlan Leal Globulin (S) [Mass/Vol] 3.7 g/dL Normal [facility] Comment on above: Performed By: #### C MP ####[facility] Yfbtchfihf38[address] [place] [address]Dr. Madelynlan Leal Glucose [Mass/Vol] 141 mg/dL Critically high 74-106 [facility] Comment on above: Performed By: #### T SH, CMP ####[facility] Yxhoxkydgm6685 [place] [address]Dr. Madelynlan Leal Glucose [Mass/Vol] 214 mg/dL Critically high 74-106 [facility] Comment on above: Performed By: #### C MP ####[facility] B[address]zvgfygv[address] [place], [place] [address]Dr. Madelynlan Leal Potassium [Moles/Vol] 5.2 mmol/L Critically high 3.5-5.1 [facility] Comment on above: Performed By: #### T SH, CMP ####[facility] Loxwsnxnpt[address] [place], [place] [address]Dr. Yilan Leal Potassium [Moles/Vol] 5.6 mmol/L Critically high 3.5-5.1 [facility] Comment on above: Performed By: #### C MP ####[facility] Yzayyzswbs0502 [place] [phone]. Yilan Leal Protein [Mass/Vol] 6.0 g/dL Critically low 6.4-8.2 Th [facility] Comment on above: Performed By: #### T SH, CMP ####[facility] Kgeaeoposz[address] [place], [place] [address]Dr. Yilan Leal Protein [Mass/Vol] 6.3 g/dL Critically low 6.4-8.2 Th [facility] Comment on above: Performed By: #### C MP ####[facility] Nqufpfwnns[address] [place], [place] [address]Dr. Yilan Leal Sodium [Moles/Vol] 130 mmol/L Critically low 136-145 [facility] Comment on above: Performed By: #### T SH, CMP ####[facility] Awuehetcrx6[address] [place], [place] [address]Dr. Yilan Leal Sodium [Moles/Vol] 128 mmol/L Critically low 136-145 [facility] Comment on above: Performed By: #### C MP ####[facility] Jcjkhhpmgn[address] [place], [place] [address]Dr. Yilan Leal Urea nitrogen [Mass/Vol] 63.0 mg/dL Critically high 7.0-18.0 [facility] Comment on above: Performed By: #### T SH, CMP ####[facility] Ljlzynxhte[address] [place], [place] [address]Dr. Yilan Leal Urea nitrogen [Mass/Vol] 65.0 mg/dL Critically high 7.0-18.0 [facility] Comment on above: Performed By: #### C MP ####[facility] Nhscognndx[address] [place], [place] [address]Dr. Yilan Leal Urea nitrogen/Creatinine [Mass ratio] 28.9 mg/mg Normal [facility] Comment on above: Performed By: #### T SH, CMP ####[facility] Jlgprijimk[address] [place], [place] [address]Dr. Yilan Leal Urea nitrogen/Creatinine [Mass ratio] 31.1 mg/mg Normal [facility] Comment on above: Performed By: #### C MP ####[facility] [address]zlrvpw[address] [place] [address]Dr. Farhat Leal PROTIMEon 09-18-2021 INR Coag (PPP) [Relative time] 1.06 {INR} Normal [facility] Comment on above: Performed By: #### P T, PTT ####[facility] [address]frsi[address] [place] [address]Dr. Farhat Leal INR GUIDELINES SEE BELOW Normal [facility] Comment on above: Result Comment: MALINA RED INR: 2.0 - 3.0 CONDITIONS NOT LISTED BELOW 2.5 - 3.5 FOR PROSTHETIC HEART VALVE REPLACEMENT 2.5 - 3.5 RECURRENT THROMBOSIS Performed By: #### P T, PTT ####[facility] Eatkfodrvn25[address] [place] [address]Dr. Farhat Leal PT Coag (PPP) [Time] 11.4 s Normal 9.0-11.6 [facility] Comment on above: Performed By: #### P T, PTT ####[facility] Qttznsxyme5507 [place] [address]Dr. Farhat Leal PTTon 09-18-2021 aPTT Coag (Bld) [Time] 27.9 s Normal 22.3-36.2 Th [facility] Comment on above: Performed By: #### P T, PTT ####[facility] Cpknhmmbes[address] [place] [address]Dr. Farhat Leal TSHon 09-18-2021 TSH 7.099 uIU/mL Critically high 0.358-3.740 [facility] Comment on above: Performed By: #### T SH, CMP ####[facility] Suzmvmmzml[address] [place], [place] [address]Dr. Farhat Leal US SALOME DOP LEG RTon 09-19-19 US SALOME DOP LEG RT Normal The [facility] XR HIP RT 2 3V W PELVISon XR HIP RT 2 3V W PELVIS Normal [facility] Social History Date Type Detail Facility Start: 03-18-2023 Alcohol intake Ex-drinker (finding) [facility] Start: 02-26-2022 End: 10-20-2022 Sex Assigned At [facility] Work Phone: Start: 09-25-2021 History SDOH Financial 5 [facility] Start: 09-25-2021 History SDOH Food Worry 1 [facility] Start: 09-25-2021 History SDOH Transpo rt Med 2 [facility] Start: 09-14-2021 End: 01-12-2022 Exposure to SARS-CoV-2 (event) Not sure [facility] Start: 04-08-2021 End: 02-26-2022 Alcohol intake Current drinker of alcohol (finding) [facility] Start: 03-09-2011 End: 07-07-2022 Tobacco smoking status NHIS Ex-smoker [facility] Work Phone: Start: 03-09-2011 End: 10-20-2022 Cigarettes smoked current (pack per day) - Reported 1 [facility] Work Phone: Start: 03-09-2011 End: 02-26-2022 Tobacco use and exposure Smokeless tobacco non-user [facility] Start: 1945 Sex Assigned At Not on file C [facility] Start: 1945 Sex Assigned At Male F [facility]: 02-15-1975 History of tobacco use Current smoker [facility] Work Phone: End: 02-15-1975 History of tobacco use Cigarette Smoker [facility] Work Phone: How hard is it for y ou to pay for the very basics like food, housing, medical care, and heating Not hard at all [facility] Work Phone: (I/We) worried wheth er (my/our) food would run out before (I/we) got money to buy more. Never true [facility] Work Phone: In the past 12 month s, was there a time when you were not able to pay the mortgage or rent on time? No [facility] Work Phone: How often to you hav e a drink containing alcohol? Never [facility] Vital Signs Date Time Vital Sign Value Performing Clinician Facility 03-18-2023 13:37-0500 Body temperature 98.01 [degF] Ni Petznick DO Work Phone: [facility] 03-18-2023 13:37-0500 Diastolic blood pressure 64 mm[Hg] Ni Petznick DO Work Phone: [facility] 03-18-2023 13:37-0500 Heart rate 72 /min Ni Petznick DO Work Phone: [facility] 03-18-2023 13:37-0500 SaO2% (BldA) [Mass fraction] 98 % Ni Petznick DO Work Phone: [facility] 03-18-2023 13:37-0500 Systolic blood pressure 118 mm[Hg] Ni Petznick DO Work Phone: [facility] 07-20-2022 13:35-0400 Body temperature 97.4 [degF] DO Devon Ball Work Phone: [facility] 07-20-2022 13:35-0400 Diastolic blood pressure 50 mm[Hg] DO Devon Ball Work Phone: [facility] 07-20-2022 13:35-0400 Heart rate 67 /min DO Devon Ball Work Phone: [facility] 07-20-2022 13:35-0400 Respiratory rate 20 /min DO Devon Ball Work Phone: [facility] 07-20-2022 13:35-0400 Systolic blood pressure 98 mm[Hg] DO Devon Ball Work Phone: [facility] 06-29-2022 14:46-0400 Body height 193.04 cm DO Devon Ball Work Phone: [facility] 02-26-2022 13:11-0500 Body temperature 96.6 [degF] Hina Peterson MD Work Phone: [facility] 02-26-2022 13:11-0500 Diastolic blood pressure 75 mm[Hg] Hina Peterson MD Work Phone: [facility] 02-26-2022 13:11-0500 Heart rate 75 /min Hina Peterson MD Work Phone: [facility] 02-26-2022 13:11-0500 Systolic blood pressure 88 mm[Hg] Hina Peterson MD Work Phone: [facility] 02-05-2022 08:29-0500 Body temperature 96.69 [degF] [facility] Work Phone: [facility] 02-05-2022 08:29-0500 Diastolic blood pressure 42 mm[Hg] [facility] Work Phone: [facility] 02-05-2022 08:29-0500 Heart rate 79 /min [facility] Work Phone: [facility] 02-05-2022 08:29-0500 SaO2% (BldA) [Mass fraction] 100 % [facility] Work Phone: [facility] 02-05-2022 08:29-0500 Systolic blood pressure 72 mm[Hg] [facility] Work Phone: [facility] 01-12-2022 11:00-0500 Diastolic blood pressure 54 mm[Hg] Alissa Major TIMBER T[employer]ATMENT PLANT OPERATOR.VINYL INSTALLER Work Phone: [facility] 01-12-2022 11:00-0500 Heart rate 88 /min Alissa Major TIMBER TREATMENT PLANT OPERATOR.VINYL INSTALLER Work Phone: [facility] 01-12-2022 11:00-0500 SaO2% (BldA) [Mass fraction] 93 % Alissa Major TIMBER TREATMENT PLANT OPERATOR.VINYL INSTALLER Work Phone: [facility] 01-12-2022 11:00-0500 Systolic blood pressure 96 mm[Hg] Alissa Major TIMBER TREATMENT PLANT OPERATOR.VINYL INSTALLER Work Phone: [facility] 01-12-2022 10:12-0500 Body temperature 97.9 [degF] Alissa Major TIMBER TREATMENT PLANT OPERATOR.VINYL INSTALLER Work Phone: [facility] 01-12-2022 10:12-0500 Respiratory rate 18 /min Alissa Major TIMBER TREATMENT PLANT OPERATORSkylarVINYL INSTALLER Work Phone: [facility] 11-17-2021 15:59-0400 Body height 193 cm No Reeder DO Work Phone: [facility] 11-17-2021 15:59-0400 Body weight 111.58 kg No Reeder DO Work Phone: [facility] 11-17-2021 15:59-0400 Diastolic blood pressure 59 mm[Hg] No Reeder DO Work Phone: [facility] 11-17-2021 15:59-0400 Heart rate 86 /min No Reeder DO Work Phone: [facility] 11-17-2021 15:59-0400 SaO2% (BldA) [Mass fraction] 97 % No Reeder DO Work Phone: [facility] 11-17-2021 15:59-0400 Systolic blood pressure 104 mm[Hg] No Reeder DO Work Phone: [facility] Clinical Notes 06-05-2021 to 05-19-2023 Note Date & Type Note Facility 05-19-2023 Note [place] Electrophysiology Progress Note Reason for visit: follow [...] at about 50-60 systolic. patient with friend/ line driver from facility, we will take patient to the ER for evaluation ---- --------- Per dr. Alvarez 03/2021 Mr. Almonte, Otis , presents to clinic for routine follow [...] of the right coronary artery with robust vqbh-gy-vmuqb collaterals. 5. Normal global left ventricular systolic [...] Follow up with Dr. Galvez in the [facility] in the next 2 weeks; he may follow up with Dr. Orosco as needed for interventional issues. 5. Follow up wi (more content not included)... [place] 04-11-2023 Evaluation note Encounter Date Diagnosis Assessment [...] (ICD-10 - Z89.619) WC dependent. 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 He is being transported by a line driver. 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 [id number] Evaluation note* Encounter Date Diagnosis Assessment Notes [...] are maintaining regular scheduled appts with their plant utility person. No bleeding complications Dec, Hyperlipidemia LDL goal [...] fluid balance and to avoid dehydration. 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 This patient is anticoagulated to prevent thromboembolic events. They are maintaining regular scheduled appts with their plant utility person. No bleeding complications Nov, Hyperlipidemia LDL goal [...] Z94.0) Monthly labs to transplant clinic Nov, [facility] (current) use of insulin (ICD-10 - Z79.4) [facility] Other 09-28-2023 Evaluation note* Encounter Date Diagnosis [...] are maintaining regular scheduled appts with their plant utility person. No bleeding complications Oct, Type 1 diabetes [...] - Z94.0) Continue routine surveillance labs. 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 DX Code Needed. 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 No bleeding complications Sep, Type 1 diabetes [...] risk for cerebrovascular and cardiovascular disease. 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 Please review and advise. Ariadna Mcodwell, documented in this encounterCleveland Clinic [facility]07-27-2023 Evaluation note* Encounter Date Diagnosis Assessment Notes Treatment Notes Treatment Clinical Notes Aug, Longstanding persistent atrial fibrillation (ICD-10 - I48.11) This patient is in NSR or rate controlled. This patient is anticoagulated to prevent thromboembolic events. They are maintaining regular scheduled appts with their plant utility person. No s/s bleeding Aug, Type 1 diabetes [...] risk for cerebrovascular and cardiovascular disease. 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 patient with friend/ line driver from facility, we will take patient [...] of the right coronary artery with robust [id number]-wi-[id number] collaterals. 5. Normal global left ventricular systolic [...] with Dr. Galvez in the [facility] in the next 2 weeks; he may follow up with Dr. Orosco as needed for interventional issues. 5. Follow up with Dr. Devon Moreira as scheduled. PMH: Past Medical History: Diagnosis Date Abnormal ECG Arrhythmia Atrial fibrillation (CMS/HCC) Chronic kidney disease Coronary artery disease Diabetes mellitus (CMS/HCC) (more content not included)...[place]07-26-2023 NotePatient here for 1.5 year follow up and device check. Lightheaded in the office today, as BP is very low. He denies chest pain, SOB, palpitations, and bleeding on warfarin. Had routine labs last week. Review of Systems Musculoskeletal: Positive for arthritis, joint pain and myalgias. Neurological: Positive for light-headedness. All other systems reviewed and are negative.[place] 08-06-2022 Evaluation note* Encounter Date Diagnosis Assessment [...] are maintaining regular scheduled appts with their plant utility person. No bleeding complications Jul, Type 1 diabetes [...] risk for cerebrovascular and cardiovascular disease. Jul, [facility] (current) use of insulin (ICD-10 - Z79.4) Jul, Kidney transplant status (ICD-10 - Z94.0) Monthly labs, ongoing surveillance from transplant clinic [facility] Other 05-15-2023 Progress note Author Sadia Aguilar [facility] June 29, 2022 2:47pm Note Date/Time June 29, 2022 2:46p m [facility] [address] [place] [address] Wound Center Provider Note Signed Patient: Alex Almonte MR#: [id number] : 1945 Acct:[id number] Age/Sex: 76 / M Copies to: DO Sadia Whyte APRN~ HPI Date of Visit Date of Visit: Date of Service: 06/29/2022 Time of Service: 14:45 Narrative HPI: 12/30/21 Alex is a 76 year old male presenting to [facility] wound care for aninitial visit for eval and treatment of a sacral/coccyx area pressure ulcer. [facility] There is an COUNTER ATTENDANT present for the visit. Medicalhoney gel will [...] his brief that was cleaned by this senior medical writer as well as another nursing staff [...] from initial visit here Mode of Arrival/ Decal Decorator: Facility vehicle Assistive Device Used Today: Wheelchair [...] Ulcer/Injury Staging: Unstageable Bed Appearance: Beefy Red, [place], Yellow and Rolled Edges Percent of Wound [...] By: <Electronically signed by DAVID Aguilar> 06/29/221446 [facility] Work Phone: 1(662) 504-296505-11-2023 Evaluation note* Encounter Date Diagnosis Assessment Notes [...] are maintaining regular scheduled appts with their plant utility person. No bleeding complications June, Hyperlipidemia LDL goal <100 (ICD-10 - E78.5) Instructed on diet and exercise with continued statin therapy.Discussed the beneficial effects of lowering cholesterol in reducing the risk for cerebrovascular and cardiovascular disease. June, [facility] (current) use of insulin (ICD-10 - Z79.4) June, Kidney transplant status (ICD-10 - Z94.0) No s/s rejection [facility] Other 04-24-2023 Progress note Author Sadia Aguilar [facility] June 08, 2022 2:10pm Note Date/Time June 08, 2022 2:1 0pm [facility] [address] [place] [address] Wound Center Provider Note Signed Patient: Alex Almonte MR#: [id number] : 1945 Acct:[id number] Age/Sex: 76 / M Copies to: DO Sadia Whyte APRN~ HPI Date of Visit Date of Visit: Date of Service: 06/08/2022 Time of Service: 14:07 Narrative HPI: 12/30/21 Alex is a 76 year old male presenting to [facility] wound care for aninitial visit for eval and treatment of a sacral/coccyx area pressure ulcer. [facility] There is an COUNTER ATTENDANT present for the visit. Medicalhoney gel will [...] his brief that was cleaned by this senior medical writer as well as another nursing staff [...] from initial visit here Mode of Arrival/ Decal Decorator: Facility vehicle Assistive Device Used Today: Wheelchair [...] Ulcer/Injury Staging: Unstageable Bed Appearance: Beefy Red, [place], Yellow and Rolled Edges Percent of Wound [...] <Electronically signed by DAVID Aguilar> 06/08/22 14[address] [facility] Work Phone: 1([phone]) 504-873004-21-2023 Evaluation note* Encounter Date Diagnosis Assessment Notes [...] are maintaining regular scheduled appts with their plant utility person. 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 No open ulcerations present Pain controlled [facility] Other 03-27-2023 Progress note Author Sadia Aguilar [facility] May 11, 2022 1:41pm Note Date/Time May 11, 2022 1:4 0pm [facility] [address] [place] [address] Wound Center Provider Note Signed Patient: Alex Almonte MR#: [id number] : 1945 Acct:[id number] Age/Sex: 76 / M Copies to: Devon Moreira,DO Sadia Aguilar, TIMBER TREATMENT PLANT OPERATOR~ HPI Date of Visit Date of Visit: Date of Service: 05/11/2022 Time of Service: 13:38 Narrative HPI: 12/30/21 Alex is a 76 year old male presenting to [facility] wound care for aninitial visit for eval and treatment of a sacral/coccyx area pressure ulcer. [facility] There is an COUNTER ATTENDANT present for the visit. Medicalhoney gel will [...] his brief that was cleaned by this senior medical writer as well as another nursing staff [...] from initial visit here Mode of Arrival/ Decal Decorator: Facility vehicle Assistive Device Used Today: Wheelchair [...] Ulcer/Injury Staging: Unstageable Bed Appearance: Beefy Red, [place] and Yellow Percent of Wound Bed Granulated/Red: [...] <Electronically signed by DAVID Aguilar> 05/11/22 1341 [facility] Work Phone: 1(164) 742-819103-23-2023 Evaluation note* Encounter Date Diagnosis Assessment Notes [...] are maintaining regular scheduled appts with their plant utility person. 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 Author Type: Physician Type: Progress Notes Filed: 04/24/2022 10:32 AM Note Text: Encounter opened in error, patient not seen.[facility]02-28-2023 Progress note Author Sadia Aguilar [facility] April 14, 2022 2:19pm Note Date/Time April 14, 2022 2:18pm [facility] [address] [place] [address] Wound Center Provider Note Signed Patient: Alex Almonte MR#: [id number] : 1945 Acct:[id number] Age/Sex: 76 / M Copies to: DO Sadia Whyte APRN~ HPI Date of Visit Date of Visit: Date of Service: 04/14/2022 Time of Service: 14:18 Narrative HPI: 12/30/21 Alex is a 76 year old male presenting to [facility] wound care for aninitial visit for eval and treatment of a sacral/coccyx area pressure ulcer. [facility] There is an COUNTER ATTENDANT present for the visit. Medicalhoney gel will [...] his brief that was cleaned by this senior medical writer as well as another nursing staff [...] from initial visit here Mode of Arrival/ Decal Decorator: Facility vehicle Assistive Device Used Today: Wheelchair [...] Ulcer/Injury Staging: Unstageable Bed Appearance: Beefy Red, [place] and Yellow Percent of Wound Bed Granulated/Red: [...] DD/ 141 Signed By: <Electronically signed by ADVID Aguilar> 04/14/22 141 [facility] Work Phone: 1(375) 280-930902-16-2023 NotePatient Outreach (KIDMMN) ALEX ALMONTE ([id number]) 1945 M TRN Date Time Provider Department 04/02/22 VAN OLIVAREZ During your visit today, we recorded the following information about you: Allergies As of Date: 04/02/2022 Noted Allergy Reaction PYRIDOSTIGMINE BROMIDE 08/04/2021 8 - GI Upset Date Reviewed: 02/26/2022 Reviewed by: Braden Abel MA - Fully Assessed Visit Diagnosis:Screening for genitourinary condition [Z13.89] Order(s):URINALYSIS, REFLEX MICROSCOPIC [[id number]] Order #: [id number] Prescriptions as of 04/06/2022 - tacrolimus IR [...] by mouth daily with lunch. Magic Cup [place] with lunch - aspirin, enteric coated (ASPIRIN, ENTERIC COATED) 81 mg EC tablet Take 1 tablet by mouth once daily. - atorvastatin (LIPITOR) 40 mg tablet 1 tablet by ORAL/FEEDING TUBE route daily at bedtime. - predniSONE (DELTASONE) 5 mg tablet TAKE 1 TABLET BY MOUTH EVERY DAY Problem List As Of Date 04/02/2022 Noted Resolved ULCER OF LOWER LIMB, UNSPEC [L97.837] 02/24/2002 DIAB RENAL MANIF ADULT-UNCONTRLLD [E11.29, E11.*02/24/2002 Type 2 diabetes mellitus with diabetic neuropat*02/24/2002 DIABETES UNCOMPL ADULT-UNCONTRLLED [SGG6567] 02/24/2002 KIDNEY TRANSPLANT STATUS [Z94.0] 09/07/2003 PROPHYLACTIC IMMUNOTHERAPY [Z29.8] 07/30/2006 STENCIL MAKER STEROIDS [SNP5522] 07/30/2006 VITAMIN D DEFICIENCY NOS [E55.9] 09/07/2008 [...] perfusion [R09.89] 09/30/2021 PAD (peripheral artery disease) ([facility]) [I73.9] 09/26/2021 Osteomyelitis (HCC) [M86.9] 11/29/2021 Class 1 obesity due to excess calories with ser*11/29/2021 Mixed hyperlipidemia due to type 2 diabetes myles*11/29/2021 Type 2 diabetes mellitus with diabetic peripher*11/29/2021 Atherosclerosis of pauma artery of extremity w*11/29/2021 Malnutrition of moderate degree (HCC) [E44.0] 12/01/2021 Dermatitis associated with moisture [L30.8] 12/04/2021 Encounter Status:Closed by [facility]OBBS on 04/06/22[facility] [...] to pharmacy. Katina Duque documented in this encounterCleveland Clinic [facility]02-07-2023 Progress note Author Sadia Aguilar [facility] March 24, 2022 3:00pm Note Date/Time March 24, 2022 2 :59pm [facility] [address] [place] [address] Wound Center Provider Note Signed Patient: Alex Almonte MR#: [id number] : 1945 Acct:[id number] Age/Sex: 76 / M Copies to: DO Sadia Whyte APRN~ HPI Date of Visit Date of Visit: Date of Service: 03/24/2022 Time of Service: 14:58 Narrative HPI: 12/30/21 Alex is a 76 year old male presenting to [facility] wound care for aninitial visit for eval and treatment of a sacral/coccyx area pressure ulcer. [facility] There is an COUNTER ATTENDANT present for the visit. Medicalhoney gel will [...] his brief that was cleaned by this senior medical writer as well as another nursing staff [...] from initial visit here Mode of Arrival/ Decal Decorator: Facility vehicle Assistive Device Used Today: Wheelchair [...] Ulcer/Injury Staging: Unstageable Bed Appearance: Beefy Red, [place] and Yellow Percent of Wound Bed Granulated/Red: [...] <Electronically signed by DAVID Aguilar> 03/24/22 1500 [facility] Work Phone: 1(227) 119-316601-17-2023 Progress note Author Sadia Aguilar [facility] March 03, 2022 2:41pm Note Date/Time March 03, 2022 2 :41pm [facility] [address] [place] [address] Wound Center Provider Note Signed Patient: Alex Almonte MR#: [id number] : 1945 Acct:[id number] Age/Sex: 76 / M Copies to: DO Sadia Whyte APRN~ HPI Date of Visit Date of Visit: Date of Service: 03/03/2022 Time of Service: 14:38 Narrative HPI: 12/30/21 Alex is a 76 year old male presenting to [facility] wound care for aninitial visit for eval and treatment of a sacral/coccyx area pressure ulcer. [facility] There is an COUNTER ATTENDANT present for the visit. Medicalhoney gel will [...] his brief that was cleaned by this senior medical writer as well as another nursing staff [...] from initial visit here Mode of Arrival/ Decal Decorator: Facility vehicle Assistive Device Used Today: Wheelchair [...] Ulcer Pressure Ulcer/Injury Staging: Unstageable Bed Appearance: [place] and Yellow Percent of Wound Bed Granulated/Red: 90 Percent of Devitalized: 10 Length (cm): 2.2 Width (cm): 1.8 Depth (cm): 1.9 CM Sq: 3.960 Surrounding Tissue Appearance: [place], Hyperpigmented and Satellite lesions Surrounding Tissue Temp: [...] <Electronically signed by DAVID Aguilar> 03/03/22 14[address] [facility] Work Phone: 1([phone] 412-557101-13-2023 Miscellaneous Notes* Telephone Encounter - RAUL Davidson - 02/27/2022 10:24 AM EST Patient phones requesting refills as follows: Per pts sister takes 1 mg in AM and 1 mg in PM Requested Prescriptions Pending Prescriptions Disp Refills tacrolimus IR (PROGRAF) 1 mg capsule Sig: Take 2 capsules by mouth DAILY (6 AM). Please review and advise. RAUL Davidson documented in this encounterCleveland Clinic Hillcre[facility] Hospital01-12-2023 NoteHNO ID: [id number] Author: Hina Peterson MD Service: ? Author Type: Physician Type: Progress Notes Filed: 02/26/2022 4:31 PM Note Text: [facility] [place] DEPARTMENT OF VASCULAR SURGERY OUTPATIENT VISIT DATE [...] his postop visit. He has been in long term since then and has been recovering from his acute on chronic congestive heart failure. His wound has largely been healing without any issues and the maxwell and sutures were removed at the nursing facility. He comes here with a lateral wound eschar. He denies any fevers, chills, or any drainage. He is on anticoagulation. 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 Patient on mycophenolate mofetil , cellcept and prednisone Mixed hyperlipidemia due to type 2 diabetes mellitus ([facility]) 11/29/2021 Osteomyelitis ([facility]) 11/29/2021 Paroxysmal atrial fibrillation ([facility]) Renal transplant, status post SA node dysfunction ([facility]) s/p pacemaker Type 2 diabetes mellitus with diabetic neuropathy, with long-term current use of insulin ([facility]) 02/24/2002 PAST SURGICAL HISTORY Procedure [...] by mouth daily with lunch. Magic Cup [place] with lunch aspirin, enteric coated (ASPIRIN, ENTERIC [...] not included. [facility] DEPARTMENT OF VASCULAR SURGERY OUTPATIENT VISIT DATE [...] his postop visit. He has been in long term since then and has been recovering from his acute on chronic congestive heart failure. His wound has largely been healing without any issues and the maxwell and [facility]. He comes here with a lateral wound eschar. He denies any fevers, chills, or any drainage. He is on anticoagulation. 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 Patient on mycophenolate mofetil ,cellcept and prednisone Mixed hyperlipidemia due to type 2 diabetes mellitus ([facility]) 11/29/2021 Osteomyelitis ([facility]) 11/29/2021 Paroxysmal atrial fibrillation ([facility]) Renal transplant, status post SA node dysfunction ([facility]) s/p pacemaker Type 2 diabetes mellitus with diabetic neuropathy, with long-term current use of insulin ([facility]) 02/24/2002 PAST SURGICAL HISTORY Procedure [...] by mouth daily with lunch. Magic Cup [place] with lunch aspirin, enteric coated (ASPIRIN, ENTERIC [...] 2022 TIME: 4:26 PM documented in this encounterCleveland Clinic Hillcre[facility] Hospital01-05-2023 Miscellaneous Notes* Telephone Encounter - Gwen [...] Home and cell number(Ask for Alex's nurse) [phone] Diagnosis 4 mo f/u wound check Yumiko Mcclain documented in this encounterCleveland Clinic Hillcrest Hospital01-05-2023 Miscellaneous Notes* Telephone Encounter - Augusta Medrano RN - 02/19/2022 11:11 AM EST Alex Kate [facility] nursing facility, [facility], called regarding elevated tacrolimus level (23.9). Spoke with bedside nurse, mukul Enriquez. Level is from last week- unable to clearly determine if medications were held prior to lab work. Reviewed with nurse morning labs should occur prior to lab draws. Patient is scheduled for repeat labs tomorrow. Will assess new level. Augusta Medrano RN documented in this encounterCleveland Clinic Hillcre[facility] Hospital01-04-2023 Miscellaneous Notes* Telephone Encounter - Martina [...] advise. Mercedez Tavares MA documented in this encounterCleveland Clinic Hillcrest Hospital12-27-2022 Progress note Author Sadia Aguilar [facility] February 10, 2022 3:47pm Note Date/Time February 10, 2022 3:47pm [facility] [address] [place] [address] Wound Center Provider Note Signed Patient: Alex Almonte MR#: [id number] : 1945 Acct:[id number] Age/Sex: 76 / M Copies to: DO Sadia Whyte APRN~ HPI Date of Visit Date of Visit: Date of Service: 02/10/2022 Time of Service: 15:44 Narrative HPI: 12/30/21 Alex is a 76 year old male presenting to [facility] wound care for aninitial visit for eval and treatment of a sacral/coccyx area pressure ulcer. [facility] There is an COUNTER ATTENDANT present for the visit. Medicalhoney gel will [...] his brief that was cleaned by this senior medical writer as well as another nursing staff member, few weeks to follow up Subjective Pain Coccyx: Pain Description: Intermittent Pain Intensity: 0 Wound/Ulcer History When did wound start?: 4 weeks ago- from initial visit here Mode of Arrival/ Decal Decorator: Facility vehicle Assistive Device Used Today: Wheelchair [...] Ulcer Pressure Ulcer/Injury Staging: Unstageable Bed Appearance: [place] and Yellow Percent of Wound Bed Granulated/Red: 90 Percent of Devitalized: 10 Length (cm): 2.5 Width (cm): 2.3 Depth (cm): 2.1 CM Sq: 5.750 Surrounding Tissue Appearance: [place], Hyperpigmented and Satellite lesions Surrounding Tissue Temp: [...] <Electronically signed by DAVID Aguilar> 02/10/22 [address] [facility] Work Phone: 1([phone]) 710-472812-22-2022 NoteHNO ID: [id number] Author: Asia Pike MD Service: ? Author Type: Physician Type: Progress Notes Filed: 02/05/2022 9:38 AM Note Text: [facility] [place] Transplant Follow up Portions of this note [...] snacks patient declined. Indra scale at [facility]: 166.2 lbs per patient. Bed sore on coccyx causing discomfort. Being changed regularly at [facility]- reported to be smaller around but still as deep. Patient not very up to date with medications. Patient brought paperwork from [facility] with all medications being received. Patient unsure if they have been drawing labs regularly. Last Tac from 01/19: 12.9 and K 5.9. In need of current labs. Lab orders will be sent with patient and follows as below: Kidney and Pancreas Transplant Standing Lab Orders [id number] [place], [place] [address] February 05, 2022 Alex Almonte 1945 [id number] STANDARD TESTING: Diagnosis Codes: Z94.0 Kidney Transplant [...] AT YOUR LABORATORY FACILITY AND FAX TO [phone]. PLEASE CALL [phone]. Provider: Dr. Pike Current Outpatient Medications Medication [...] by mouth daily with lunch. Magic Cup [place] with lunch aspirin, enteric coated (ASPIRIN, ENTERIC [...] original note were not included. [facility] [place] Transplant Follow up Portions of this note [...] date with medications. Patient brought paperwork from [facility] with all medications being received. Patient unsure if they have been drawing labs regularly. Last Tac from 01/19: 12.9 and K 5.9. In need of current labs. Lab orders will be sent with patient and follows as below: Kidney and Pancreas Transplant Standing Lab Orders [address] [place], [place] [address] February 05, 2022 Alex Almonte 1945 [id number] STANDARD TESTING: Diagnosis Codes: Z94.0 Kidney Transplant [...] AT YOUR LABORATORY FACILITY AND FAX TO [phone]. PLEASE CALL [phone]. Provider: Dr. Pike Current Outpatient Medications Medication [...] by mouth daily with lunch. Magic Cup [place] with lunch aspirin, enteric coated (ASPIRIN, ENTERIC [...] All other system reviews negative. Augusta Medrano service station cashier: February 05, 2022 9:34 AM I have [...] complexity. Asia Pike MD documented in this encounterCleveland Clinic Hillcrest Hospital12-06-2022 Progress note Author Sadia Aguilar [facility] January 20, 2022 2:21pm Note Date/Time January 20, 2022 2 :21pm [facility] [address] [place] [address] Wound Center Provider Note Signed Patient: Alex Almonte MR#: [id number] : 1945 Acct:[id number] Age/Sex: 76 / M Copies to: DO Sadia Whyte APRN~ HPI Date of Visit Date of Visit: Date of Service: 01/20/2022 Time of Service: 14:17 Narrative HPI: 12/30/21 Alex is a 76 year old male presenting to [facility] wound care for aninitial visit for eval and treatment of a sacral/coccyx area pressure ulcer. [facility] There is an COUNTER ATTENDANT present for the visit. Medicalhoney gel will [...] from initial visit here Mode of Arrival/ Decal Decorator: Facility vehicle Assistive Device Used Today: Wheelchair [...] Ulcer Pressure Ulcer/Injury Staging: Unstageable Bed Appearance: [place] and Yellow Percent of Wound Bed Granulated/Red: 40 Percent of Devitalized: 60 Length (cm): 5.2 Width (cm): 3.4 Depth (cm): 1.8 CM Sq: 17.680 Surrounding Tissue Appearance: [place] and Hyperpigmented Surrounding Tissue Temp: Warm Drainage [...] <Electronically signed by DAVID Aguilar> 01/20/22 1421 [facility] Work Phone: [phone]) 701-334412-06-2022 Miscellaneous Notes* Telephone Encounter - Van Olivarez APRN.CNP - 01/20/2022 1:12 PM EST Labs noted from yesterday. Pt is currently residing at [facility], I spoke with the Nurse, the results has been addressed by Physician caring for pt. He had been placed on Chlor Con and this has been discontinued and hyperkalemia has been treated. aVn Olivarez APRN.CNP documented in this encounterCleveland Clinic Hillcrest Hospital11-28-2022 Surgical operation note* Brief Op Note - Misbah Landis PA-C - 01/12/2022 10:41 AM EST BRIEF OPERATIVE / PROCEDURE NOTE LOG ID: [id number] SURGERY/PROCEDURE DATE: 01/12/2022 INCISION/PROCEDURE START TIME: 10:32 AM INCISION CLOSE/PROCEDURE END TIME: 10:35 AM SURGEON(S)/PROCEDURALIST(S) AND SCRIPT MANAGER(S): Misbah Landis PA-C SURGERY/PROCEDURE(S): Removal tunneled vascular access catheter under local anesthesia ANESTHESIA: Procedural Sedation FINDINGS: Catheter removed intact ESTIMATED BLOOD LOSS: 0 ml SPECIMENS: None COMPLICATIONS: None PRE-OP/PRE-PROCEDURE DIAGNOSIS: Foot Ulcer POST-OP/POST-PROCEDURE DIAGNOSIS: Same as Preop SIGNATURE: Misbah Landis PA-C PATIENT NAME: Alex Almonte DATE: January 12, 2022 TIME: 10:42 AM documented in this encounterCleveland Clinic Hillcrest Hospital11-22-2022 Nurse Note* Laxmi Archibald RN - 01/06/2022 1:55 PM EST Pre-procedure instructions: Contacted patient's sister, Munira Brothers and nurse at [facility], Jada ([phone]) andconfirmed appt. for Gerhard removal scheduled on 01/12/22, at [facility]. If instructions are not followed your [...] signed. Arrival at 9:30am to desk QB-1 ([facility]) and check in for your procedure. Wheel And Axle Inspector/Transportation: How will you be arriving for your procedure? Ambulance service. To be arranged by [facility]. If you develop any of the following symptoms before your procedure, please call [phone]. Chills, joint pain, rash, sore throat, cough, loss of smell, reddened eyes, vomiting, abdominal pains, diarrhea, loss of taste, severe headache, weakness, bruising or bleeding, fever, muscle pain, shortness of breath Recovery expectations: You can expect to be in recovery for 30 minutes following the procedure. Written instructions provided to patient via mydala If you have any questions please call [phone] documented in this encounterCleveland Clinic Hillcrest Hospital11-15-2022 Progress note Author Sadia Aguilar [facility] December 30, 2021 1:49pm Note Date/Time December 30, 2021 1:49pm [facility] [address] [place] [address] Wound Center Provider Note Signed Patient: Alex Almonte MR#: [id number] : 1945 Acct:[id number] Age/Sex: 76 / M Copies to: Devon Moreira,DO Sadia Aguilar APRN~ HPI Date of Visit Date of Visit: Date of Service: 12/30/2021 Time of Service: 13:44 Narrative HPI: 12/30/21 Alex is a 76 year old male presenting to [facility] wound care for aninitial visit for eval and treatment of a sacral/coccyx area pressure ulcer. [facility] There is an COUNTER ATTENDANT present for the visit. Medicalhoney gel will [...] start?: 4 weeks ago Mode of Arrival/ Decal Decorator: Facility vehicle Assistive Device Used Today: Wheelchair [...] 0.1 CM Sq: 38.500 Surrounding Tissue Appearance: [place] and Hyperpigmented Surrounding Tissue Temp: Warm Drainage [...] <Electronically signed by DAVID Aguilar> 12/30/21 134[address] [facility] Work Phone: 1(299) 182-359511-15-2022 History of Present illness Narrative* Paresh Fonseca [...] rehab facility He is currently at [facility] in [facility] Seen on video together with Zoe -history obtained from bedside nursing. he is getting up in a chair, working with PT diet is back to regular hes doing well. much improved since admission to [facility] infection is all better R BKA stump is healing well- has sutures and maxwell in place. has scabs on the R lateral side but no wound care concerns. It continues to heal. He has a follow-up with vascular surgery later December 2021. has a sacral wound -- he has local wound care following this at [facility] WBC 6.0, creatinine -- 0.8. alt [...] by mouth daily with lunch. Magic Cup [place] with lunch aspirin, enteric coated (ASPIRIN, ENTERIC [...] 76 year old male from [facility]. 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 History of PAD CAD status post CABG, diabetes, atrial fibrillatioN He originally presented [facility] for having altered mental status [...] 3. Status post right heel I&D at [facility] on 11/24/2021. 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 4. CKD - s/p gerhard placement 5. immunocompromised Status post right open above the ankle [id number]/17 - Enterobacter and MRSA from cultures Gram-positive [...] will need to coordinate with his SNF [phone] --our ID office will need to arrange for IR gerhard removal. Return to ID as needed 10 Minutes spent via virtual visit. SIGNATURE: Paresh Fonseca MD PATIENT NAME: Alex Almonte DATE: December 30, 2021 TIME: 9:52 AM documented in this encounterCleveland Clinic Hillcrest Hospital11-01-2022 Miscellaneous Notes* Telephone Encounter - Sulma Pardo - 12/16/2021 3:13 PM EDT Pt therapy manager is requesting orders for Stomp ampushield to be taken off pressure relief because it is causing sores on the thigh. Thanks, Sulma Pardo Ground Support Equipment Mechanic documented in this encounterCleveland Clinic Hillcrest Hospital10-31-2022 Miscellaneous Notes* Telephone Encounter - Gwen Alfredo Adm Asst I - 12/15/2021 4:11 PM EDT Rupa LYLES from [facility] [phone] called to report IV Vancomycin was started until today. Patient missed 3 days, should patient makeup missed doses? Please advise. Gwen Alfredo Adm Asst I documented in this encounterCleveland Clinic Hillcrest Hospital10-21-2022 Instructions* Patient Instructions* Paresh Fonseca MD [...] serious illness Are taking any medications (prescription, ykcz-qca-xleghad, vitamins, or herbal products) How will I receive EVUSHELD? EVUSHELD consists of two investigational medicines, tixagevimab and cilgavimab. You will receive 1 dose of EVUSHELD, consisting of 2 separate injections (tixagevimab and cilgavimab). EVUSHELD will be given to you by your healthcare provider as 2 intramuscular injections, given one after the other. Viruses can record changer time (mutate) and develop into a [...] caused by certain SARS-CoV-2 variants: Viruses can record changer time (mutate) and develop into a [...] treatment or prevention of COVID-19 go to https://www.fda.gov/ggyakejve-mzbigeykhwrn-fwa- response/kpt-qczxt-qrucwkhyal-gre-ehkguq-hwrglkokh/dxsbivjqs-tmh-mexiostgpomkm for more information. It is your choice [...] not go away. Report side effects to [employer] at www.fda.gov/medwatch or call 8-953-TFG-7517 or call [employer] . Additional Information If you have questions, visit the website or call the telephone number provided below. Website Telephone number http://www.DemandTec How can I learn more about COVID-19? Ask your healthcare provider. Visit https://www.cdc.gov/COVID19 Contact your local or state public health department. What is an Emergency Use Authorization? The [place] FDA has made EVUSHELD (tixagevimab co-packaged with cilgavimab) available under an emergency access mechanism called an Emergency Use Authorization EUA. The EUA is supported by a Electroencephalogram Technologist of Health and Human Service (HHS) declaration [...] monohydrate, polysorbate 80, sucrose, water. Distributed by: [employer] [place], [place] Manufactured for: [employer] [place], [place] [employer] 2021. All rightsreserved. documented in this encounterCleveland Clinic Hillcrest Hospital10-21-2022 Miscellaneous Notes* Telephone Encounter - Paresh Fonseca MD - 12/05/2021 3:05 PM EDT Evusheld (tixagevimab/cilgavimab) Eligibility and Patient Discussion The patient agrees to receive Evusheld (tixagevimab 300 mg and cilgavimab 300 mg) at [facility]. The patient verbalized understanding of repeating a COVID test 72 hours prior to the injections. called up patient in response to her NowPublic message today she tested covid negative on a rapid test on Wednesday this week Discussed evushed fact sheet and she agrees to proceed she will retest again today to be scheduled for Friday 12/08 at [facility] Paresh Fonseca MD documented in this encounterCleveland Clinic Hillcrest Hospital10-03-2022 Instructions* Patient Instructions* No Reeder DO - 11/17/2021 4:26 PM EDT -- continue coumadin -- will get vascular ultrasound for vein and artery of your right leg -- will have you see my interventional cardiology partner regarding your peripheral artery disease and if your artery disease is impairing your wound healing for the leg ulcer documented in this encounterCleveland Clinic Hillcrest Hospital10-03-2022 History of Present illness Narrative* No Reeder DO - 11/17/2021 3:53 PM EDT Images from the original note were not included. [facility] Department of Cardiovascular Medicine SECTION [...] Leg elevation. No Reeder DO, [facility] Vascular Medicine documented in this encounter[address]16-2022 History of Past illness Narrative* Problem Noted Date Resolved Date Altered tissue perfusion 022 documented as of this encounter (statuses as of 09/30/2021) [address]16-2022 History of Past illness Narrative* Problem Noted Date Resolved Date Altered tissue perfusion 022 documented as of this encounter (statuses as of 10/09/2021) [address]16-2022 History of Past illness Narrative* Problem Noted Date Resolved Date Altered tissue perfusion 022 documented as of this encounter (statuses as of 11/18/2021) [address]16-2022 History of Past illness Narrative* Problem Noted Date Resolved Date Altered tissue perfusion 09/30/2 022 documented as of this encounter (statuses as of 12/01/2021) [address]16-2022 History of Past illness Narrative* Problem Noted Date Resolved Date Altered tissue perfusion 09/30/2 022 documented as of this encounter (statuses as of 12/05/2021) [address]16-2022 History of Past illness Narrative* Problem Noted Date Resolved Date Altered tissue perfusion 09/30/2 022 documented as of this encounter (statuses as of 12/08/2021) [address]16-2022 History of Past illness Narrative* Problem Noted Date Resolved Date Altered tissue perfusion 09/30/2 022 documented as of this encounter (statuses as of 12/08/2021) [address]16-2022 History of Past illness Narrative* Problem Noted Date Resolved Date Altered tissue perfusion 16/2 022 documented as of this encounter (statuses as of 12/12/2021) [address]16-2022 History of Past illness Narrative* Problem Noted Date Resolved Date Altered tissue perfusion 16/2 022 documented as of this encounter (statuses as of 12/15/2021) [address]16-2022 History of Past illness Narrative* Problem Noted Date Resolved Date Altered tissue perfusion 16/2 022 documented as of this encounter (statuses as of 12/16/2021) [address]16-2022 History of Past illness Narrative* Problem Noted Date Resolved Date Altered tissue perfusion 16/2 022 documented as of this encounter (statuses as of 12/31/2021) [address]22 History of Past illness Narrative* Problem Noted Date Resolved Date Altered tissue perfusion 16/2 022 documented as of this encounter (statuses as of 01/13/2022) [address]16-2022 History of Past illness Narrative* Problem Noted Date Resolved Date Altered tissue perfusion 16/2 022 documented as of this encounter (statuses as of 01/20/2022) [address]16-2022 History of Past illness Narrative* Problem Noted Date Resolved Date Altered tissue perfusion 16/2 022 documented as of this encounter (statuses as of 02/06/2022) [address]16-2022 History of Past illness Narrative* Problem Noted Date Resolved Date Altered tissue perfusion 16/2 022 documented as of this encounter (statuses as of 02/20/2022) [address]16[address]2022 History of Past illness Narrative* Problem Noted Date Resolved Date Altered tissue perfusion 16/2 022 documented as of this encounter (statuses as of 02/26/2022) [address]16-2022 History of Past illness Narrative* Problem Noted Date Resolved Date Altered tissue perfusion 16/2 022 documented as of this encounter (statuses as of 02/27/2022) [address]16[address]2022 History of Past illness Narrative* Problem Noted Date Resolved Date Altered tissue perfusion 16/2 022 documented as of this encounter (statuses as of 03/21/2022) [address]22 History of Past illness Narrative* Problem Noted Date Resolved Date Altered tissue perfusion 16/2 022 documented as of this encounter (statuses as of 03/30/2022) [address]22 History of Past illness Narrative* Problem Noted Date Resolved Date Altered tissue perfusion 16/2 022 documented as of this encounter (statuses as of 04/06/2022) [facility] History of Past illness Narrative* Problem Noted Date Resolved Date Altered tissue perfusion 022 documented as of this encounter (statuses as of 05/13/2022) [facility] History of Past illness Narrative* Problem Noted Date Diagnosed Date Resolved Date Altered tissue perfusion documented as of this encounter (statuses as of 2022) [facility] History of Past illness Narrative* Problem Noted Date Diagnosed Date Resolved Date Altered tissue perfusion documented as of this encounter (statuses as of 10/29/2022) [facility] Miscellaneous Notes* Telephone Encounter - Katina [...] to pharmacy. Katina Duque documented in this encounterCleveland Clinic Hillcrest Hospital05-31-2022 Miscellaneous Notes* Telephone Encounter - Van [...] advise. Rosibel Link Adm documented in this encounterCleveland Clinic Hillcrest Hospital04-21-2022 Miscellaneous Notes* Telephone Encounter - Van Olivarez APRN.CNP - 06/05/2021 4:46 PM EDT Spoke with pt regarding latest results, scr. at baseline. TAC level 8.6 prev two levels in 5 range.He believes latest level would be 12hr trough. No changes for now, if next level >7, can consider if reduction appropriate. He understands. Van Olivarez APRN.CNP documented in this encounterSelect [facility] [place] [facility]* Diagnosis Screening for genitourinary condition Screening for other and unspecified genitourinary condition documented in this encounter [facility] note* Diagnosis Acute deep vein thrombosis (DVT) of proximal end of right lower extremity (HCC)- Primary PAD (peripheral artery disease) ([facility]) Peripheral vascular disease, unspecified Nonhealing ulcer of heel ([facility]) Anticoagulation management encounter Encounter for therapeutic drug monitoring documented in this encounter [facility]* Diagnosis Encounter for prophylactic measures, unspecified- Primary documented in this encounter [facility] note* Diagnosis Kidney replaced by transplant- Primary documented in this encounter [facility]* Diagnosis MRSA bacteremia- Primary Bacteremia Diabetic foot ulcer with osteomyelitis ([facility]) Type II or unspecified type diabetes mellitus with other specified manifestations, not stated as uncontrolled ILIANA (acute kidney injury) ([facility]) Acute kidney failure, unspecified documented in this encounter [facility]* Diagnosis Kidney replaced by transplant- Primary 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 [facility] current use of immunosuppressive drug documented in this encounter [facility] note* Diagnosis Hx of BKA, right (HCC)- Primary PAD (peripheral artery disease) ([facility]) Peripheral vascular disease, unspecified Mixed [...] (HCC) Atrial fibrillation documented in this encounter [facility]* Diagnosis Screening for genitourinary condition Screening for other and unspecified genitourinary condition documented in this encounter [facility]* Diagnosis Onset Date Resolution Status At high risk for skin breakdown chronic Diabetes chronic Fecal incontinence chronic Limited mobility chronic Poor appetite chronic Pressure ulcer of sacral region, unstageable chronic Candidiasis resolved [facility] Work Phone: Evaluation noteNo InformationNoJebbit Other Evaluation note* Diagnosis Kidney replaced by transplant- Primary documented in this encounter [facility] note* Diagnosis Type 1 diabetes mellitus with [...] COLONOSCOPY 1995,2001, 2014 Hospitalization History see above [employer] Other Progress note Author Sadia Aguilar [facility] July 20, 2022 1:48pm Note Date/Time July 20, 2022 1:48p m [facility] [address] [place] [address] Wound Center Provider Note Signed Patient: Alex Almonte MR#: [id number] : 1945 Acct:[id number] Age/Sex: 76 / M Copies to: DO Sadia Whyte, TIMBER TREATMENT PLANT OPERATOR~ HPI Date of Visit Date of Visit: Date of Service: 07/20/2022 Time of Service: 13:46 Narrative HPI: 12/30/21 Alex is a 76 year old male presenting to [facility] wound care for aninitial visit for eval and treatment of a sacral/coccyx area pressure ulcer. [facility] There is an COUNTER ATTENDANT present for the visit. Medicalhoney gel will [...] his brief that was cleaned by this senior medical writer as well as another nursing staff [...] from initial visit here Mode of Arrival/ Decal Decorator: Facility vehicle Assistive Device Used Today: Wheelchair [...] <Electronically signed by DAVID Aguilar> 07/20/22 [address] [facility] Work Phone: Reason for referral (narrative)* Outpatient Procedure (Routine) - Authorized Specialty Diagnoses / Procedures Referred By Felicia t Referred To [facility] VASCULAR WALLING Diagnoses PAD (peripheral artery disease) (HCC) Nonhealing ulcer of heel (HCC) Procedures US LEG ARTERIAL PERIPH UNL VAS LAB DUP-SCAN LXTR ART/ARTL BPGS UNI/[place] [address] [place] [id number] [address] Referral ID Status Reason Start Date Expiration Date Visits Requested Visits Authorized [id number] Authorized Auto-Generat ed Referral 11/17/2021 11/17/2022 1 1 * Outpatient Procedure (Routine) - Authorized Specialty Diagnoses / Procedures Referred By Kaleighac t Referred To [facility] Diagnoses Acute deep vein thrombosis (DVT) of proximal end of right lower extremity (HCC) Procedures US LEG VEIN DVT UNL VAS LAB DUP-SCAN XTR VEINS UNILATERAL/[place] [address] [place] [id number] [address] Referral ID Status Reason Start Date Expiration Date Visits Requested Visits Authorized [id number] Authorized Auto-Generat ed Referral 11/17/2021 11/17/2022 1 1 * Consult, Test, Treat (Routine) - Authorized Specialty Diagnoses / Procedures Referred By Felicia carreno Referred To Contact Cardiology Diagnoses PAD (peripheral artery disease) (HCC) Nonhealing ulcer of heel (HCC) Procedures CONSULT TO CARDIOLOGY OFFICE/OUTPATIENT [facility] MDM 60-74 MINUTES Savanah Marcelo MD [address] [place] [address] Referral ID Status Reason Start Date Expiration Date Visits Requested Visits Authorized [id number] Authorized PCP Requested Referral 11/17/2021 11/17/2022 1 1 [facility] Summary Purpose Family History No Family History Records Found Relationship Condition Age at Onset Recorded Date/T kartik father Aneurysm Unknown father Parkinson's disease Unknown Advance Directives No Advanced Directives Records FoundDocuments on File Type Date Recorded Patient Nuclear Monitoring Technician Expl anation Advance Directive(s) Latest Code Status [...] Maker Relationship: M ajority of Adult Siblings (entry level sales representative) DNR-CCA 09/26/2021 11:56 AM 10/01/2021 [...] Decision Maker Relationship: Majority of Adult Siblings (entry level sales representative) Code Status History Code Status [...] Reason for Visit Chief Complaint Open Wound ([facility]) Reason for Visit At high risk [...] and content) DATE CREATED AUTHOR 02/20/2021 [facility] DATE CREATED AUTHOR AUTHOR'S ORGANIZ ATION 07/25/2022 [facility] DATE CREATED AUTHOR AUTHOR'S ORGANIZ ATION 08/16/2022 [facility] DATE CREATED AUTHOR AUTHOR'S ORGANIZ ATION 01/14/2023 [facility] DATE CREATED AUTHOR AUTHOR'S ORGANIZ ATION 05/25/2023 [facility] DATE CREATED AUTHOR AUTHOR'S ORGANIZ ATION 06/19/2023 [facility] EPIC Source Comments (unrecognize d section and content) In the event this informatio n is protected by the Federal Confidentiality of Alcohol and Drug Abuse Patient Records regulations: The Federal rules restrict any use of the information to criminally investigate or prosecute any alcohol or drug abuse patient.[facility] HospitalIn the event this information is protected by the Federal Confidentiality of Alcohol and Drug Abuse Patient Records regulations: The Federal rules restrict any use of the information to criminally investigate or prosecute any alcohol or drug abuse patient.[facility] HospitalIn the event this information is protected by the Federal Confidentiality of Alcohol and Drug Abuse Patient Records regulations: The Federal rules restrict any use of the information to criminally investigate or prosecute any alcohol or drug abuse patient.[facility] HospitalIn the event this information is protected by the Federal Confidentiality of Alcohol and Drug Abuse Patient Records regulations: The Federal rules restrict any use of the information to criminally investigate or prosecute any alcohol or drug abuse patient.[facility] HospitalIn the event this information is protected by the Federal Confidentiality of Alcohol and Drug Abuse Patient Records regulations: The Federal rules restrict any use of the information to criminally investigate or prosecute any alcohol or drug abuse patient.[facility] HospitalIn the event this information is protected by the Federal Confidentiality of Alcohol and Drug Abuse Patient Records regulations: The Federal rules restrict any use of the information to criminally investigate or prosecute any alcohol or drug abuse patient.[facility] HospitalIn the event this information is protected by the Federal Confidentiality of Alcohol and Drug Abuse Patient Records regulations: The Federal rules restrict any use of the information to criminally investigate or prosecute any alcohol or drug abuse patient.[facility] HospitalIn the event this information is protected by the Federal Confidentiality of Alcohol and Drug Abuse Patient Records regulations: The Federal rules restrict any use of the information to criminally investigate or prosecute any alcohol or drug abuse patient.[facility] HospitalIn the event this information is protected by the Federal Confidentiality of Alcohol and Drug Abuse Patient Records regulations: The Federal rules restrict any use of the information to criminally investigate or prosecute any alcohol or drug abuse patient.[facility] HospitalIn the event this information is protected by the Federal Confidentiality of Alcohol and Drug Abuse Patient Records regulations: The Federal rules restrict any use of the information to criminally investigate or prosecute any alcohol or drug abuse patient.[facility] HospitalIn the event this information is protected by the Federal Confidentiality of Alcohol and Drug Abuse Patient Records regulations: The Federal rules restrict any use of the information to criminally investigate or prosecute any alcohol or drug abuse patient.[facility] HospitalIn the event this information is protected by the Federal Confidentiality of Alcohol and Drug Abuse Patient Records regulations: The Federal rules restrict any use of the information to criminally investigate or prosecute any alcohol or drug abuse patient.[facility] HospitalIn the event this information is protected by the Federal Confidentiality of Alcohol and Drug Abuse Patient Records regulations: The Federal rules restrict any use of the information to criminally investigate or prosecute any alcohol or drug abuse patient.[facility] HospitalIn the event this information is protected by the Federal Confidentiality of Alcohol and Drug Abuse Patient Records regulations: The Federal rules restrict any use of the information to criminally investigate or prosecute any alcohol or drug abuse patient.[facility] HospitalIn the event this information is protected by the Federal Confidentiality of Alcohol and Drug Abuse Patient Records regulations: The Federal rules restrict any use of the information to criminally investigate or prosecute any alcohol or drug abuse patient.[facility] HospitalIn the event this information is protected by the Federal Confidentiality of Alcohol and Drug Abuse Patient Records regulations: The Federal rules restrict any use of the information to criminally investigate or prosecute any alcohol or drug abuse patient.[facility] HospitalIn the event this information is protected by the Federal Confidentiality of Alcohol and Drug Abuse Patient Records regulations: The Federal rules restrict any use of the information to criminally investigate or prosecute any alcohol or drug abuse patient.[facility] HospitalIn the event this information is protected by the Federal Confidentiality of Alcohol and Drug Abuse Patient Records regulations: The Federal rules restrict any use of the information to criminally investigate or prosecute any alcohol or drug abuse patient.[facility] HospitalIn the event this information is protected by the Federal Confidentiality of Alcohol and Drug Abuse Patient Records regulations: The Federal rules restrict any use of the information to criminally investigate or prosecute any alcohol or drug abuse patient.[facility] HospitalIn the event this information is protected by the Federal Confidentiality of Alcohol and Drug Abuse Patient Records regulations: The Federal rules restrict any use of the information to criminally investigate or prosecute any alcohol or drug abuse patient.[facility] HospitalIn the event this information is protected by the Federal Confidentiality of Alcohol and Drug Abuse Patient Records regulations: The Federal rules restrict any use of the information to criminally investigate or prosecute any alcohol or drug abuse patient.[facility] HospitalIn the event this information is protected by the Federal Confidentiality of Alcohol and Drug Abuse Patient Records regulations: The Federal rules restrict any use of the information to criminally investigate or prosecute any alcohol or drug abuse patient.[facility] HospitalIn the event this information is protected by the Federal Confidentiality of Alcohol and Drug Abuse Patient Records regulations: The Federal rules restrict any use of the information to criminally investigate or prosecute any alcohol or drug abuse patient.[facility] HospitalIn the event this information is protected by the Federal Confidentiality of Alcohol and Drug Abuse Patient Records regulations: The Federal rules restrict any use of the information to criminally investigate or prosecute any alcohol or drug abuse patient.[facility] HospitalIn the event this information is protected by the Federal Confidentiality of Alcohol and Drug Abuse Patient Records regulations: The Federal rules restrict any use of the information to criminally investigate or prosecute any alcohol or drug abuse patient.[facility] HospitalIn the event this information is protected [...] Care Teams (unrecognized sec tion and content) Director Visual Relationship Specialty Start Date End Date Devon Moreira, DO [address] [facility] [place] [address] PCP - General 05/27/00 Director Visual Relationship Specialty Start Date End Date Devon Moreira, DO [address] [facility] [place] [address] PCP - General 05/27/00 Director Visual Relationship Specialty Start Date End Date Devon Moreira, DO [address] [facility] [place] [address] PCP - General 05/27/00 Director Visual Relationship Specialty Start Date End Date Devon Moreira, DO [address] [facility] [place] [address] PCP - General 05/27/00 Director Visual Relationship Specialty Start Date End Date Devon Moreira, DO [address] [facility] [place] [address] PCP - General 05/27/00 Director Visual Relationship Specialty Start Date End Date Devon Moreira, DO [address] [facility] [place] [address] PCP - General 05/27/00 Director Visual Relationship Specialty Start Date End Date Devon Moreira, DO [address] [facility] [place] [address] PCP - General 05/27/00 Director Visual Relationship Specialty Start Date End Date Devon Moreira, DO [address] [place] [address] PCP - General 05/27/00 Director Visual Relationship Specialty Start Date End Date Devon Moreira, DO [address] [place] [address] PCP - General 05/27/00 Director Visual Relationship Specialty Start Date End Date Devon Moreira, DO [address] [place] [address] PCP - General 05/27/00 Director Visual Relationship Specialty Start Date End Date Devon Moreira, DO [address] [place] [address] PCP - General 05/27/00 Director Visual Relationship Specialty Start Date End Date Devon Moreira, DO [address] [place] [address] PCP - General 05/27/00 Director Visual Relationship Specialty Start Date End Date Devon Moreira, DO [address] [place] [address] PCP - General 05/27/00 Director Visual Relationship Specialty Start Date End Date Devon Moreira, DO [address] [place] [address] PCP - General 05/27/00 Director Visual Relationship Specialty Start Date End Date Devon Moreira, DO [address] [place] [address] PCP - General 05/27/00 Director Visual Relationship Specialty Start Date End Date Devon Moreira, DO [address] [place] [address] PCP - General 05/27/00 Director Visual Relationship Specialty Start Date End Date Devon Moreira, DO [address] [place] [address] PCP - General 05/27/00 Director Visual Relationship Specialty Start Date End Date Devon Moreira, DO [address] [place] [address] PCP - General 05/27/00 Director Visual Relationship Specialty Start Date End Date Devon Moreira, DO [address] [place] [address] PCP - General 05/27/00 Team Status: Active Member Role Status Dates Devon Moreira DO Primary Care Provider Active Team Status: Inactive Member Role Status Dates Devon Moreira DO Primary Care Provider Active Sadia Aguilar APRN Attending Provider Active Director Visual Relationship Specialty Start Date End Date Devon Moreira [address] [place] [address] PCP - General 05/27/00 Director Visual Relationship Specialty Start Date End Date Devon Moreira [address] [place] [address] PCP - General 05/27/00 Director Visual Relationship Specialty Start Date End Date Ni Cabrera DO [address] [facility] [address] [place] [address] PCP - ACO Reach 07/09/22 Devon Moreira MD [address] [place] [id number] PCP - General Internal Medicine 07/14/22 PRN Active and Recently Administ ered Medications (unrecognized section and content) Medication Order 01/10/2022 01/11/2022 01/12/2022 lidocaine (PF) 10 mg/mL (1 %) injection (XYLOCAINE) SUBCUTANEOUS, X (OR/PROCEDURE) PRN, Starting on 01/12/22 at 1032, Until Wed01/13/22 at 0303, Intraprocedure 1032 (Given - Provid er: Vani Hdz APRN.VINYL INSTALLER) Goals (unrecognized section and content) Goals may [...] BE BASED ON THE PRIMARY CLINICAL RECORDS. [id number] provides no warranty or guarantee of the accuracy or completeness of information in this document.
[2023-07-21 07:49] LABS: Basophils Absolute Auto 0.1 10^3/uL (0.0-0.1); Basophils Percent Auto 0.8 % (0.2-2.0); Eosinophils Absolute Auto 0.3 10^3/uL (0.0-0.7); Eosinophils Percent Auto 4.5 % (0.9-7.0); Hematocrit 28.5 % (42.0-54.0); Immature Granulocytes Abs Auto 0.01 10^3/uL (0.00-0.03); Immature Granulocytes Pct Auto 0.1 % (0.0-0.5); Lymphocytes Absolute Auto 2.6 10^3/uL (1.2-3.8); Lymphocytes Percent Auto 33.7 % (20.5-60.0); Mean Corpuscular HGB Conc 31.6 g/dL (29.9-35.2); Mean Corpuscular Hemoglobin 24.9 pg (25.9-34.0); Mean Corpuscular Volume 78.7 fL (80.0-94.0); Mean Platelet Volume 10.8 fL (9.5-13.5); Monocytes Absolute Auto 0.9 10^3/uL (0.3-0.8); Monocytes Percent Auto 11.9 % (1.7-12.0); Neutrophils Absolute Auto 3.7 10^3/uL (1.4-6.5); Platelet Count 249 10^3/uL (150-450); Red Blood Count 3.62 10^6/uL (4.70-6.10); Red Cell Distribution Width 16.4 % (11.0-15.0); White Blood Count 7.6 10^3/uL (4.0-11.0)
[2023-07-21 08:01] LABS: INR 2.79; Prothrombin Time 26.7 sec (9.0-11.6)
[2023-07-21 09:23] LABS: Alanine Aminotransferase 12 U/L (16-63); Albumin Globulin Ratio 0.8; Albumin Level 2.6 g/dL (3.4-5.0); Alkaline Phosphatase 79 U/L (46-116); Anion Gap 13.7; Aspartate Amino Transferase 14 U/L (15-37); BUN Creatinine Ratio 31.9; Bilirubin Total 0.7 mg/dL (0.2-1.0); Calcium 7.9 mg/dL (8.5-10.1); Chloride 103 mmol/L (98-107); Estimated GFR (African America 58 (>=60); Estimated GFR (Non-African Ame 47 (>=60); Globulin 3.4 g/dL; Glucose 177 mg/dL (74-106); Potassium 3.7 mmol/L (3.5-5.1); Sodium 140 mmol/L (136-145)
[2023-07-25 14:10] LABS: Tacrolimus (FK506), Blood 9.7 ng/mL (2.0-20.0)
== END 2023-07-21 01:05 | disposition home or self-care (01) ==
LOC: LAB 01:04
PROVIDERS: PCP Internal Medicine; Visit Provider Internal Medicine
DX: N18.9 Chronic kidney disease, unspecified (principal)
CPT/HCPCS: 36415; 80053; 80197; 85025; 85610

== ENCOUNTER 2023-07-28 03:16 | Outpatient (REF) | payer MEDICARE, OTHER, SELFPAY ==
--- OUTSIDE RECORDS SUMMARY | 2023-07-28 03:24 | XMS_ITS ---
Patient Summarization (C-CDA 2.1 CCD) Created on: July 28, 2023 ALEX ALMONTE : 1945 Sex: Male Author Organization Sample organization Care Team Providers Care Paper Production Engineer Name Role Phone PROVIDER, UNKNOWN Attending Unavailable [...] Primary Care Provider DAVID Aguilar Attending Provider [phone] Sadia Aguilar Attending Unavailable Sadia Aguilar Admitting [...] [PYRIDOSTIGMINE BROMIDE] Drug Allergy 2 GI Upset [facility] Work Phone: (1 source) Pyridostigmine Drug Allergy 2 Nausea Only [facility] Encounters Encounter Date Encounter Type Care Provider Facility Start: 06-17-2023 End: 06-17-2023 ambulatory NI CABRERA Not Available Start: 05-19-2023 End: 05-19-2023 ambulatory CAITY [facility] Start: 04-11-2023 End: 04-11-2023 ambulatory Devon Moreira Other [employer] Other Start: 04-11-2023 Telephone encounter Devon NUNEZ [facility] Start: 03-18-2023 End: 03-18-2023 ambulatory NI CABRERA Not Available Start: 03-18-2023 End: 03-18-2023 Office outpatient visit 25 minutes Ni Cabrera DO Work Phone: [facility] [phone] Comment on above: 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 Start: 01-14-2023 End: 01-14-2023 ambulatory Devon Moreira Other [employer] Other Start: 01-14-2023 Sbsq nursing facil c are/day minor complj 15 min [facility] Start: 12-10-2022 End: 12-10-2022 ambulatory Devon Moreira Other [employer] Other Start: 12-10-2022 Sbsq nursing facil c are/day minor complj 15 min Devon Moreira [facility] Start: 11-12-2022 End: 11-12-2022 ambulatory Devon Moreira Other [employer] Other Start: 11-12-2022 Sbsq nursing facil c are/day minor complj 15 min [facility] Start: 10-16-2022 Refill Asia Pike MD Work Phone: [facility] Comment on above: Med Change Request Start: 10-12-2022 End: 10-12-2022 ambulatory Devon Moreira Other [facility] Other Start: 10-12-2022 Telephone encounter Devon Moreira MAYRA [facility] Start: 10-08-2022 End: 10-08-2022 ambulatory Devon Moreira Other [employer] Other Start: 10-08-2022 Sbsq nursing facil c are/day new problem 25 min [facility] Start: 09-22-2022 [facility] Comment on above: Rx Refills Start: 09-10-2022 End: 09-10-2022 ambulatory Devon Moreira Other [employer] Other Start: 09-10-2022 Sbsq nursing facil c are/day new problem 25 min [facility] Start: 09-09-2022 End: 09-09-2022 ambulatory [facility] Start: 08-06-2022 End: 08-06-2022 ambulatory Devon Moreira Other [facility] Other Start: 08-06-2022 Sbsq nursing facil c are/day new problem 25 min [facility] Start: 07-22-2022 End: 07-22-2022 ambulatory Devon Moreira Other [employer] Other Start: 07-22-2022 Telephone encounter Devon Moreira [facility] Start: 07-20-2022 End: 07-20-2022 ambulatory Sadia Aguilar Facility:[facility] Start: 07-20-2022 End: 07-20-2022 ambulatory DO Devon Moreira Work Phone: [facility] Work Phone: Start: 07-20-2022 End: 07-20-2022 Discharged Recurring DO Devon Moreira Work Phone: [facility] Work Phone: Start: 07-13-2022 End: 07-13-[address] DEVON MOREIRA Facility:[facility]1 Start: 07-10-2022 End: 07-10-[address] DEVON MOREIRA Facility:[facility] Start: 07-03-2022 End: 07-03-[address] DEVON MOREIRA Facility:[facility] Start: 06-26-2022 End: 06-26-[address] DEVON MOREIRA Facility:[facility] Start: 06-26-2022 End: 06-26-[address] DEVON MOREIRA Facility:[facility] Start: 06-25-2022 End: 06-25-2022 ambulatory Devon Moreira Other [place] [employer] Other Start: 06-25-2022 Sbsq nursing facil c [...] 06-05-2022 End: 06-05-[address] DEVON MOREIRA [facility] [employer] Other Start: 05-29-2022 End: 05-29-[address] DEVON MOREIRA Facility:[facility] Start: 05-22-2022 End: 05-22-[address] DEVON MOREIRA Facility:[facility] Start: 05-20-2022 End: 05-20-[address] DEVON MOREIRA Facility:[facility] Start: 05-18-2022 End: 06-12-2022 ambulatory SHAIKH Kate MURRAY Facility:[facility] Start: 05-15-2022 End: 05-15-[address] DEVON MOREIRA Facility:[facility]1 Start: 05-13-2022 End: 05-13-2022 ambulatory Van Olivarez BORDER MEASURER.PREPARED FOODS PRODUCTION TEAM MEMBER Work Phone: [facility] Comment on above: results Start: 05-13-2022 E-mail encounter fro m caregiver Van Olivarez BORDER MEASURER.PREPARED FOODS PRODUCTION TEAM MEMBER Work Phone: [facility] Start: 05-08-2022 End: 05-08-[address] DEVON MOREIRA Facility:[facility]1 Start: 05-07-2022 End: 05-07-2022 ambulatory Devon Moreira Other [employer] Other Start: 05-07-2022 Sbsq nursing facil c [...] MOREIRA Facility:H1 Start: 04-02-2022 ambulatory Van cortes BORDER MEASURER.PREPARED FOODS PRODUCTION TEAM MEMBER Work Phone: [facility] Start: 04-01-2022 End: 04-01-[address] DEVON MOREIRA Facility:[facility]1 Start: 03-22-2022 Anne Pike MD Work Phone: [facility] Comment on above: Med Change Request Start: 03-21-2022 ambulatory SHAIKH Kate MURRAY Facilit y:H1 Start: 03-11-2022 End: 03-11-[address] DEVON MOREIRA Facility:[facility]1 Start: 02-27-2022 Refill Samira Serna [facility] Comment on above: Rx Refills Start: 02-26-2022 End: 02-26-2022 ambulatory DEVON MOREIRA Facility:[facility] Start: 02-26-2022 End: 02-26-2022 Patient [...] Start: 02-05-2022 End: 02-06-2022 ambulatory NILDA CHEN Facility:[facility] Start: 02-05-2022 End: 02-05-2022 Patient encounter procedure [facility] Work Phone: [facility] Comment on above: Kidney replaced by t ransplant (Primary Dx); 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; halfway current use of immunosuppressive drug Start: 01-26-2022 End: 01-26-[address] DEVON MOREIRA Facility:[facility]1 Start: 01-20-2022 Telephone encounter Vanbetzy Olivarez APRN.PREPARED FOODS PRODUCTION TEAM MEMBER Work Phone: [facility] Comment on above: Results Start: 01-19-2022 End: 01-19-[address] DEVON MOREIRA Facility:[facility]1 Start: 01-16-2022 ambulatory SHAIKH Kate MURRAY Facilit y:H1 Start: 01-12-2022 End: 01-12-2022 Subsequent hospital visit by physician Alissa Chavira APRN.PREPARED FOODS PRODUCTION TEAM MEMBER Work Phone: [facility] Comment on above: ILIANA (acute kidney in [place]) ([facility]) [N17.9] Start: 12-30-2021 End: 12-30-2021 ambulatory Paresh Fonseca MD Work Phone: Infectious Disease Comment on above: MRSA bacteremia (Arabella munira Dx); Diabetic foot ulcer with osteomyelitis (HCC) Start: 12-30-2021 End: 12-30-2021 Telemedicine consultation with patient Paresh Fonseca MD Work Phone: [facility] Start: 12-29-2021 End: 12-29-[address] DEVON MOREIRA Facility:[facility]1 Start: 12-25-2021 End: 12-26-[address] DEVON MOERIRA Facility:[facility]1 Start: 12-20-2021 End: 12-20-[address] [...] Start: 12-08-2021 Orders Only Nilda Richmondmisael soto BORDER MEASURER.PREPARED FOODS PRODUCTION TEAM MEMBER Work Phone: [facility] Comment on above: Kidney replaced by t ransplant (Primary Dx) Start: 12-07-2021 ambulatory Paresh Fonseca MD Work Phone: [facility] Comment on above: CoPat Start (copat s top 12/27/21) Start: 12-05-2021 Telephone encounter Paresh Fonseca MD Work Phone: Infectious Disease Comment on above: Patient Update (evus held discussion/) Start: 12-01-2021 Follow-up encounter [facility] Provider [facility] Start: 12-01-2021 Patient encounter procedure [facility] Prov ider [facility] Start: 11-23-2021 End: 11-28-2021 Evaluation [...] management encounter Start: 11-14-2021 End: 11-15-2021 ambulatory [facility] Facility:[facility]1 Start: 10-24-2021 End: 11-15-2021 ambulatory DIAMONDSONALI MURRAY Facility:H1 Start: 10-22-2021 End: 10-23-2021 ambulatory [facility] Facility:[facility] Start: 10-06-2021 ambulatory Van cortes BORDER MEASURER.PREPARED FOODS PRODUCTION TEAM MEMBER Work Phone: [facility] Start: 09-30-2021 Refill Asia Pike MD Work Phone: [facility] Comment on above: Refill Request Start: 09-19-2021 End: 09-24-2021 Evaluation and management of inpatient DR PROSPER LEES Facility:H1 Start: 09-18-2021 End: 09-19-[address] DEVON MOREIRA Facility:[facility]1 Start: 07-11-2021 Refill Asia Pike MD Work Phone: [facility] Comment on above: Refill Request Start: 06-05-2021 Telephone encounter Van Olivarez APRN.PREPARED FOODS PRODUCTION TEAM MEMBER Work Phone: [facility] Comment on above: Results Start: 02-05-2021 End: 02-13-2021 ambulatory UNKNOWN PROVIDER Facility:[facility] Medical Equipment Procedure Code Equipment Code Equipment Original Text Equipment Identifier Dates Tray Powerline S urecuff 5fr Polyurethane Catheter 1 Lumen Microintroducer - [id number] Start: 12-06-2021 Immunizations Immunization Date Immunization Notes Care Provider Fa cili 12-11-2021 COVID-19 booster vaccine, age 12+ yr, bivalent ([employer]) Paresh Fonseca MD Work Phone: [facility] 12-11-2021 influenza, high-dose , quadrivalent vaccine (FLUZONE HIGH DOSE QUADRIVALENT) Paresh Fonseca MD Work Phone: [facility] 12-11-2021 influenza virus vaccine, unspecified formulation [facility] 10-24-2021 influenza, high dose seasonal, preservative-free Ni Petznick DO Work Phone: [facility] 01-19-2019 influenza, high dose seasonal, preservative-free Ni Petznick DO Work Phone: [facility] 11-25-2017 Seasonal trivalent influenza vaccine, adjuvanted, preservative free Ni Petznick DO Work Phone: [facility] 11-05-2016 influenza, high dose seasonal, preservative-free Ni Petznick DO Work Phone: [facility] 07-30-2014 pneumococcal polysaccharide vaccine, 23 valent Ni Petznick DO Work Phone: [facility] 03-09-2011 influenza virus vaccine, unspecified formulation Van Olivarez APRN.PREPARED FOODS PRODUCTION TEAM MEMBER Work Phone: [facility] 12-17-2007 influenza virus vaccine, unspecified formulation Van Krusejaylan HERNANDEZ.[facility] Work Phone: [facility] Work Phone: 02-11-2006 influenza virus vaccine, unspecified formulation Van Krusejaylan RILEYN.[facility] Work Phone: [facility] Work Phone: 12-07-2003 influenza virus vaccine, unspecified formulation Van Sher RILEYN.[facility] Work Phone: [facility] Work Phone: 12-07-2003 pneumococcal polysaccharide vaccine, 23 valent Van Olivarez APRN.[facility] Work Phone: [facility] Work Phone: NEGATED: Highlighted row has not occurred!12-10-2021 COVID-19 booster vaccine, age 12+ yr, bivalent ([employer]) Paresh Fonseca MD Work Phone: [facility] NEGATED: Highlighted row has not occurred!12-10-2021 influenza, high-dose, quadrivalent vaccine (FLUZONE HIGH DOSE QUADRIVALENT) Paresh Fonseca MD Work Phone: [facility] Medications Current Medications Medication Drug Class(es) [...] 10 units and notify provider [facility] [place] [place] 155-852-130 MG (6 sources) take 155-852 tablets by mouth twice daily [facility] [place] [place] 155-852-130 MG 1 tablet Orally twice daily Active take 155-852 tablets by mouth four times daily take 155-852 tablets by mouth four times daily [facility] [place] [place] 155-852-130 MG 1 tablet Orally Four times [...] docusate sodium 50 mg / sennosides, senior care 8.6 mg oral tablet (20 sources) Start: [...] by mouth daily with lunch. Magic Cup [place] with lunch 7110 mL 0 12/11/2021 Active Comment on above: Take 237 mL by mouth daily with lunch. [employer] [place] with lunch polyethylene glycol 3350 39003 mg powder for oral solution (20 sources) [...] Medicare MEDICARE MEDICAR E A AND B [id number] 2009-Present [phone] [place] [address] Medicare [id number] .[id number] 2009 Medicare [id number] 1.13.159.2.7.3 .[id number] 2009 Unknown [employer] MARTHA BHAKTA [place] MEDIC[place] SUPPLEMENT [id number] 2009-Present [phone] [place] [address] Indemnity [id number] 1.2.840.749876.1.13.159.2.7.3 .962038.315 2009 Unknown 1.2.840.258930. 1.13.159.2.7.3 .221796.315 2009 Unknown [id number] 2.16.8 40.1.968323.19 2009 Unknown [id number] 1959 Medicare [id number] 1959 Self-pay 1944 Unknown [id number] 2.16.840.1.509914.3.579.2.732 1944 Unknown [id number] 2.16.840.1.278416.3.579.2.593 1944 Unknown [id number] 2.16.840.1.611849.3.579.2.593 1944 Unknown [id number] 2.16.840.1.121526.3.579.2.593 1944 Unknown [id number] 2.16.840.1.347231.3.579.2.593 1944 Unknown [id number] 2.16.840.1.902798.3.579.2.593 1944 Unknown [id number] 2.16.840.1.298908.3.579.2.593 1944 Unknown [id number] 2.16.840.1.227835.3.579.2.593 1944 Unknown [id number] 2.16.840.1.677553.3.579.2.593 1944 Unknown [id number] 2.16.840.1.302224.3.579.2.593 1944 Unknown [id number] 2.16.840.1.706706.3.579.2.593 1944 Unknown [id number] 2.16.840.1.195963.3.579.2.593 1944 Unknown [id number] 2.16.840.1.298745.3.579.2.593 1944 Unknown [id number] 2.16.840.1.499319.3.579.2.593 1944 Unknown [id number] 2.16.840.1.897016.3.579.2.593 1944 Unknown [id number] 2.16.840.1.667806.3.579.2.593 1944 Unknown [id number] 2.16.840.1.053488.3.579.2.593 1944 Unknown [id number] 2.16.840.1.307597.3.579.2.593 1944 Unknown [id number] 2.16.840.1.983002.3.579.2.593 1944 Unknown [id number] 2.16.840.1.294320.3.579.2.593 1944 Unknown [id number] 2.16.840.1.800798.3.579.2.593 1944 Unknown [id number] 2.16.840.1.029627.3.579.2.593 1944 Unknown [id number] 2.16.840.1.645305.3.579.2.593 1944 Unknown [id number] 2.16.840.1.096617.3.579.2.593 1944 Unknown [id number] 2.16.840.1.961906.3.579.2.593 1944 Unknown [id number] 2.16.840.1.844045.3.579.2.593 1944 Unknown [id number] 2.16.840.1.988825.3.579.2.593 1944 Unknown [id number] 2.16.840.1.133668.3.579.2.593 1944 Unknown [id number] 2.16.840.1.234872.3.579.2.593 1944 Unknown [id number] 2.16.840.1.525424.3.579.2.593 1944 Unknown [id number] 2.16.840.1.277461.3.579.2.593 1944 Unknown [id number] 2.16.840.1.855198.3.579.2.593 1944 Unknown [id number] 2.16.840.1.268622.3.579.2.593 1944 Unknown [id number] 2.16.840.1.760284.3.579.2.593 1944 Unknown [id number] 2.16.840.1.240630.3.579.2.593 1944 Unknown [id number] 2.16.840.1.613148.3.579.2.593 1944 Unknown [id number] 2.16.840.1.290418.3.579.2.593 1944 Unknown [id number] 2.16.840.1.197855.3.579.2.593 1944 Unknown [id number] 2.16.840.1.018856.3.579.2.593 1944 Unknown [id number] 2.16.840.1.020477.3.579.2.593 1944 Unknown [id number] 2.16.840.1.046559.3.579.2.593 1944 Unknown [id number] 2.16.840.1.998352.3.579.2.593 1944 Unknown [id number] 2.16.840.1.188865.3.579.2.593 1944 Unknown [id number] 2.16.840.1.880148.3.579.2.593 1944 Unknown [id number] 2.16.840.1.086167.3.579.2.593 1944 Unknown [id number] 2.16.840.1.248914.3.579.2.593 1944 Unknown [id number] 2.16.840.1.368400.3.579.2.593 1944 Unknown [id number] 2.16.840.1.853770.3.579.2.125 9 1944 Unknown [id number] 2.16.840.1.602998.3.579.2.125 9 Medicare Medicare Outpatient [id number] 2T [id number] Unknown [id number] 2.16.840.1.121024.3.579.2.593 Unknown [id number] 2.16.840.1.889306.3.579.2.593 Unknown [id number] 2.16.840.1.693504.3.579.2.531 Plan of Treatment Date Care Activity Detail Author Start: 06-17-2023 End: 06-17-2023 Patient encounter procedure 06/17/2023 2:15 PM EDT Office Visit [facility] [address] [address] Ni Cabrera DO [address] [facility] [address] [place] [address] [facility] 230 Start: 06-16-2023 Hemoglobin A1c measurement Diabetes: Hemoglobin A1C [facility] Start: 02-26-2023 BP CONTROLLED (<130/80) BP CONTROLLE D (<130/80) [facility] Start: 02-05-2023 BP CONTROLLED (<130/80) BP CONTROLLE D (<130/80) [facility] Start: 01-12-2023 BP CONTROLLED (<130/80) BP CONTROLLE D (<130/80) [facility] Start: 11-17-2022 BP CONTROLLED (<130/80) BP CONTROLLE D (<130/80) [facility] Start: 10-16-2022 Influenza vaccination C [facility] Start: 05-15-2022 Medicare Annual Wellness (AWV) Medicare Annual Wellness (AWV) [facility] Start: 04-08-2022 BP CONTROLLED (<130/80) BP CONTROLLE D (<130/80) [facility] Start: 02-15-2022 ADVANCE DIRECTIVE DISCUSSION ADVANCE DIRECTIVE DISCUSSION [facility] Start: 02-15-2022 DEPRESSION ASSESSMENT DEPRESSION ASS ESSMENT [facility] Start: 02-05-2022 COVID-19 VACCINE (5 - Yung risk series) COVID-19 VACCINE (5 - Yung risk series) [facility] Start: 11-27-2021 COVID-19 VACCINE (4 - Booster for Yung series) COVID-19 VACCINE (4 - Booster for Yung series) [facility] Start: 11-04-2021 Hemoglobin A1c/Hemoglobin.total in Blood HBA1C [facility] Start: 10-16-2021 Influenza vaccination C [facility] Start: 03-26-2021 COVID-19 VACCINE (3 - Yung risk 3-dose series) COVID-19 VACCINE (3 - Yung risk 3-dose series) [facility] Start: 03-26-2021 COVID-19 VACCINE (3 - Yung risk series) COVID-19 VACCINE (3 - Yung risk series) [facility] Start: 02-15-2021 ADVANCE DIRECTIVE DISCUSSION ADVANCE DIRECTIVE DISCUSSION [facility] Start: 02-15-2021 DEPRESSION ASSESSMENT DEPRESSION ASS ESSMENT [facility] Start: 01-05-2016 Hepatitis B screening URINE AL BUMIN:CREATININE RATIO [facility] Start: 07-31-2015 Pneumococcal Vaccine : 65+ Years (3 - PCV) Pneumococcal Vaccine: 65+ Years (3 - PCV) [facility] Start: 04-06-2015 Hemoglobin A1c/Hemoglobin.total in Blood HBA1C [facility] Start: 11-22-2010 Hepatitis B surface antibody level LDL CHOLESTEROL [facility] Start: 2009 ADULT PREVNAR-13 ADULT PREVNAR-13 [facility] Start: 2009 PNEUMOVAX AGE 65 AND OVER WITH 5YR LOOKBACK (#1) PNEUMOVAX AGE 65 AND OVER WITH 5YR LOOKBACK (#1) [facility] Start: 1994 SHINGRIX VACCINE (1 of 2) SHINGRIX VACCINE (1 of 2) [facility] Start: 10-18-1963 HEPATITIS A (1 of 2 - Risk 2-dose series) HEPATITIS A (1 of 2 - Risk 2-dose series) [facility] Start: 10-18-1963 Hepatitis A Vaccine (1 of 2 - Risk 2-dose series) Hepatitis A Vaccine (1 of 2 - Risk 2-dose series) [facility] Start: 10-18-1963 SHINGRIX VACCINE (1 of 2) SHINGRIX VACCINE (1 of 2) [facility] Start: 10-18-1963 Urine microalbumin profile [facility] Start: 1962 ANNUAL PCP TEAM SPECIAL EFFECTS PERSON MATTHEW DISEASE VISIT ANNUAL PCP TEAM CHRONIC DISEASE VISIT [facility] Start: 1956 Adult depression screening assessment DEPRESSION SCREENING [facility] Start: 1954 3 comp foot exam completed DIABETIC FOOT EXAM [facility] Start: 1954 Glaucoma screening Diabetes: R etinopathy Screening [facility] Start: 1954 Hepatitis C antibody , confirmatory test DILATED RETINAL EXAM [facility] Start: 1950 Pneumococcal Vaccine : 65+ (1 - PCV) Pneumococcal Vaccine: 65+ (1 - PCV) [facility] Start: 1950 PNEUMOCOCCAL: 65+ (1 - PCV) PNEUMOCOCCAL: 65+ (1 - PCV) [facility] Start: 1945 HEPATITIS A (1 of 2 - Risk 2-dose series) HEPATITIS A (1 of 2 - Risk 2-dose series) [facility] URINALYSIS, REFLEX MICROSCOPIC URINALYSIS, REFLEX MICROSCOPIC Lab Routine Screening for genitourinary condition Ordered: 10/06/2021 [facility] Work Phone: Comment on above: Ordered: 10/06/2021 URINALYSIS, REFLEX MICROSCOPIC URINALYSIS, REFLEX MICROSCOPIC Lab Routine Screening for genitourinary condition Ordered: 04/02/2022 [facility] Work Phone: Comment on above: Ordered: 04/02/2022 End: 11-17-2022 US LEG ARTERIAL PERIPH UNL VAS LAB US LEG ARTERIAL PERIPH UNL VAS LAB Vascular Lab Routine PAD (peripheral artery disease) (HCC) Nonhealing ulcer of heel (HCC) 1 Occurrences starting 11/17/2021 until 11/17/2022 [facility] Work Phone: Comment on above: 1 Occurrences starti ng 11/17/2021 until 11/17/2022 End: 11-17-2022 US LEG VEIN DVT UNL [facility] LAB US LEG VEIN DVT UNL VAS LAB Vascular Lab Routine Acute deep vein thrombosis (DVT) of proximal end of right lower extremity (HCC) 1 Occurrences starting 11/17/2021 until 11/17/2022 [facility] Work Phone: Comment on above: 1 [...] Coronary arteriosclerosis; Translations: [Atherosclerotic heart disease of [place] coronary artery without angina pectoris] Onset: 7 [...] current use of immunosuppressive drug; Translations: [Other care home (current) drug therapy] Episodic Other aftercare (13 sources) Long-term current use of insulin; Translations: [termite exterminator helper (current) use of insulin] Episodic Other aftercare (10 sources) halfway (current) use of insulin; Translations: [INTERMEDIATE CURRENT USE OF INSULIN] Onset: 2 Episodic Other aftercare (5 sources) termite exterminator helper (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 of anticoagulants; Translations: [INTERMEDIATE CURRNT USE ANTICOAGULANTS] Onset: 3 Episodic Other [...] care home (current) drug therapy; Translations: [OTH INTERMEDIATE CURRENT DRUG THERAPY] Onset: 02-05-2022 Episodic Other aftercare (4 sources) Encounter for orthopedic aftercare following surgical amputation; Translations: [ENC ORTHOPED AFTERCARE FLW SURG AMP] Onset: 12-22-2022 Episodic Other aftercare (4 sources) termite exterminator helper (current) use of antibiotics; Translations: [INTERMEDIATE CURRENT USE ANTIBIOTICS] Onset: 12-20-2021 Episodic Other aftercare (1 source) halfway (current) use of aspirin; Translations: [CRUSHER SETTER CURRENT USE OF ASPIRIN] Onset: 01-19-2022 Episodic [...] Phone: Start: 01-12-2022 Prothrombin time Alissa Chavira APRN.PREPARED FOODS PRODUCTION TEAM MEMBER Work Phone: Start: 12-01-2021 [facility]EMAKER CLINIC CHECK [facility] Provider Start: 11-29-2021 Microscopic examinat ion of blood, culture DR PROSPER LEES Comment on above: Performed By: #### B [id number] ####[facility] [id number] [id number] Farhat Elvis Start: 11-27-2021 Insertion of Infusio [...] renal transplant KIDNEY TRANSPLANT STATUS Van Olivarez BORDER MEASURER.PREPARED FOODS PRODUCTION TEAM MEMBER Work Phone: History of renal transplant Kidney replaced by transplant Nilda Chen BORDER MEASURER.PREPARED FOODS PRODUCTION TEAM MEMBER Work Phone: History of renal transplant [facility]ney replaced by transplant [facility] Work Phone: History of renal transplant Devon Moreira Other History of renal transplant Kidney replaced by transplant Asia Pike MD Work Phone: History of renal transplant Devon Moreira Other Results Test Name Value Interpretation Reference Range Facility Office Visiton 05-19-2023 Follow-up visit [id number] Alex Almonte 1945 M Date Provider Department Center 05/19/2023 166-CAITY IBRAHIM CARD [facility] Family History Problem Relation Age of Onset Cancer Mother Aneurysm Father Cancer Father Parkinsonism Father Family Status - Relation Status Age at Mother Father Level of Service:[id number] [place] OFFICE/OUTPATIENT ESTABLISHED LOW MDM 20 MIN Reason for Visit and Comments: Follow-up [[id number]] - 6 month follow up Normal [facility] HbA1c (Bld) [Mass fraction]o n 03-18-2023 Interpretation and review of laboratory results Normal [facility] POCT glycosylated hemoglobin (Hb A1C) docked deviceon 03-18-2023 HbA1c (Bld) [Mass fraction] 7.8 % [facility] Loved.la CNPNon 12-25-2022 CNPN Telephone (TXCTGL) ALEX ALMONTE ([id number]) 1945 M Date Time Provider Department 12/25/22 KIDNEY TXP COORDINATORS TXCTGL During your visit today, we recorded the following information about you: Duane Ryan 12/25/2022 10:41 AM Signed Labs 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 DIABETES UNCOMPL ADULT-UNCONTRLLED [AIN3812] 02/24/2002 KIDNEY TRANSPLANT STATUS [Z94.0] 09/07/2003 PROPHYLACTIC IMMUNOTHERAPY [Z29.89] 07/30/2006 INTERMEDIATE STEROIDS [[id number]] 07/30/2006 VITAMIN D DEFICIENCY NOS [E55.9] 09/07/2008 [...] diabetes mellitus with diabetic peripher*11/29/2021 Atherosclerosis of [place] artery of extremity w*11/29/2021 Malnutrition of moderate degree (HCC) [E44.0] 12/01/2021 Dermatitis associated with moisture [L30.8] 12/04/2021 Encounter Status:Closed by DUANE RYAN on 01/12/23 [facility] 11-11-2022 CNPN Telephone (TXCTGL) ALEX ALMONTE ([id number]) 1945 M Date Time Provider Department 11/11/22 [...] by mouth daily with lunch. [place] with lunch aspirin, enteric coated (ASPIRIN, ENTERIC [...] am? thanks! RF Pts RN at [facility] reports pts sister picks up Rx [...] Apply 0. (more content not included)... Normal [facility] Office Visiton 09-09-2022 Follow-up visit [id number] Zev Almontecasey 1945 M Date Provider Department Center 09/09/2022 1596-SARTHAK PARNELL MINDY [facility] Family History Problem Relation Age of Onset Cancer Mother Aneurysm Father Cancer Father Parkinsonism Father Family Status - Relation Status Age at Mother Father Level of Service:91349 [place] OFFICE/OUTPATIENT ESTABLISHED MOD MDM 30-39 MIN Normal [facility] Glucose Poct Glucometerson 0 07-20-2022 Commemt1 Glu2: Cleaned Meter Normal [facility] Comment on above: Result Comment: PERF ORMED BY: [facility] [address] [place] [address] PATHOLOGIST CONE TRUCKER JOSE F ELLIOTT M.D. Performed By: #### G LULS #### Point of Care testing , Glucose [Mass/Vol] 176 mg/dL Normal [facility] Comment on above: Result Comment: [facility] Glucose Reference Range is dependent on time and content of last meal. Glucose of more than 200 mg/dL in a nonstressed, ambulatory subject supports the diagnosis of Diabetes Mellitus. Performed By: #### G LULS #### Point of Care testing , FK506 (TACROLIMUS) WHOLE BLO ODon 07-12-2022 Tacrolimus (FK506), Blood 10.9 ng/mL Normal 2.0-20.0 [facility] Comment on above: Result Comment: Trou gh (immediately following transplant) 15.0 . Trough (steady state, 2 weeks or more after transplant): 3.0 - 8.0 . Performed by LC-MS/MS technology. Performed By: #### F K506T ####[facility] [address] [place] [address]Dr. Farhat Leal CBC AUTO DIFFon 07-10-2022 BASO # 0.0 103/ul Normal 0.0-0.1 [facility] Comment on above: Performed By: #### C BC ####[facility] Lmfzdbsl[address] [place], [place] [address]Dr. Farhat Leal Basophils/100 WBC (Bld) 0.5 % Normal 0.2-2.0 [facility] Comment on above: Performed By: #### C BC ####[facility] Cwsrbhybli[address] [place], [place] [address]Dr. Farhat Leal EO # 0.3 103/ul Normal 0.0-0.7 [facility] Comment on above: Performed By: #### C BC ####[facility] Pvhcoopwqs099[address] [place], [place] [address]Dr. Farhat Elvis Eosinophils/100 WBC (Bld) 4.9 % Normal 0.9-7.0 [facility] Comment on above: Performed By: #### C BC ####[facility] Pdfsohcdsh3[address] [place], [place] [address]Dr. Farhat Leal Erythrocyte distribution width (RBC) [Ratio] 13.8 % Normal 11.0-15.0 [facility] Comment on above: Performed By: #### C BC ####[facility] Bouszocomp[address] [place], [place] [address]Dr. Farhat Leal Hematocrit (Bld) [Volume fraction] 36.6 % Critically low 42.0-54.0 [facility] Comment on above: Performed By: #### C BC ####[facility] Psuyoanooa[address] [place], [place] [address]Dr. Farhat Leal Hemoglobin (Bld) [Mass/Vol] 12.2 g/dL Critically low 14.0-18.0 [facility] Comment on above: Performed By: #### C BC ####[facility] Pxephjjkcv78[address] [place], [place] [address]Dr. Madelynlorri Leal IG # 0.01 10e3/ul Normal 0.00-0.03 [facility] Comment on above: Performed By: #### C BC ####[facility] [address]kn[address] [place] [id number]. Farhat Leal IG % 0.2 % Normal 0.0-0.5 [facility] Comment on above: Performed By: #### C BC ####[facility] Zfhsnfwnpp9[address] [place] [id number]. Farhat Leal LYMPH # 2.2 103/ul Normal 1.2-3.8 [facility] Comment on above: Performed By: #### C BC ####[facility] J[address]chidjeh5[address] [place] [id number]. Farhat Leal Lymphocytes/100 WBC (Bld) 33.9 % Normal 20.5-60.0 [facility] Comment on above: Performed By: #### C BC ####[facility] [address]zvxvtpb30[address] [place] [address]Dr. Madelynlorri Leal MANUAL DIFF REQ NO Normal [facility] Comment on above: Performed By: #### C BC ####[facility] Wxgdlglayi[address] [place], [place] [id number]. Farhat Leal MCH (RBC) [Entitic mass] 31.0 pg Normal 25.9-34.0 [facility] Comment on above: Performed By: #### C BC ####[facility] E[address]ocrzyxi63[address] [place] [id number]. Farhat Leal MCHC (RBC) [Mass/Vol] 33.3 g/dL Normal 29.9-35.2 [facility] Comment on above: Performed By: #### C BC ####[facility] Ipmeeaefjd9[address] [place], [place] [id number]. Farhat Leal MCV (RBC) [Entitic vol] 93.1 fL Normal 80.0-94.0 [facility] Comment on above: Performed By: #### C BC ####[facility] [address]ec[address] [place] [id number]. Farhat Elvis MONO # 0.7 103/ul Normal 0.3-0.8 [facility] Comment on above: Performed By: #### C BC ####[facility] Zojvdvbxrq23[address] [place] [id number]. Farhat Leal Monocytes/100 WBC (Bld) 10.8 % Normal 1.7-12.0 [facility] Comment on above: Performed By: #### C BC ####[facility] Qolchquesj77[address] [place] [id number]. Farhat Leal NEUT # 3.2 103/ul Normal 1.4-6.5 [facility] Comment on above: Performed By: #### C BC ####[facility] Nwjuzcadlj4814 [place] [id number]. Farhat Leal Neutrophils/100 WBC (Bld) 49.7 % Normal 43.0-75.0 [facility] Comment on above: Performed By: #### C BC ####[facility] Xnhrbxdfzr6165 [place] [id number]. Farhat Leal Platelet mean volume (Bld) [Entitic vol] 10.9 fL Normal 9.5-13.5 [facility] Comment on above: Performed By: #### C BC ####[facility] Xnjpodurye34[address] [place] [id number]. Farhat Leal PLT 195 103/ul Normal 150-450 [facility] Comment on above: Performed By: #### C BC ####[facility] Jwfewqovpb6177 [place] [id number]. Farhat Leal RBC 3.93 106/ul Critically low 4.70-6.10 [facility] Comment on above: Performed By: #### C BC ####[facility] Rjmgtxdfah7[address] [place] [id number]. Farhat Leal WBC 6.4 103/ul Normal 4.0-11.0 [facility] Comment on above: Performed By: #### C BC ####[facility] [address]odmxbf[address] [place] [address]Dr. Farhat Leal MAGNESIUMon 07-10-2022 Magnesium [Mass/Vol] 1.9 mg/dL Normal 1.8-2.4 [facility] Comment on above: Performed By: #### M G, PHOS ####[facility] [address]zrxs[address] [place] [address]Dr. Farhat Leal PHOSPHORUSon 07-10-2022 Phosphate [Mass/Vol] 4.7 mg/dL Normal 2.6-4.7 [facility] Comment on above: Performed By: #### M Anais PHOS ####[facility] Ixqpwjwot[address] [place] [address]Dr. Farhat Leal PROF 14(COMP METB)on 023 Albumin [Mass/Vol] 2.7 g/dL Critically low 3.4-5.0 [facility] Comment on above: Performed By: #### C MP ####[facility] Nkwsgrwqhw4[address] [place], [place] [address]Dr. Farhat Leal Albumin/Globulin [Mass ratio] 0.8 {ratio} Normal [facility] Comment on above: Performed By: #### C MP ####[facility] Nlckoaucrh4[address] [place], [place] [address]Dr. Farhat Leal ALP [Catalytic activity/Vol] 59 U/L Normal 46-116 [facility] Comment on above: Performed By: #### C MP ####[facility] Hpqywgmamr[address] [place], [place] [address]Dr. Farhat Leal ALT [Catalytic activity/Vol] 16 U/L Normal 16-63 [facility] Comment on above: Performed By: #### C MP ####[facility] [address]qkfwe[address] [place] [address]Dr. Farhat Leal Anion gap [Moles/Vol] 12.3 mmol/L Normal [facility] Comment on above: Performed By: #### C MP ####[facility] Z[address]waqs6[address] [place] [address]Dr. Farhat Leal AST [Catalytic activity/Vol] 17 U/L Normal 15-37 [facility] Comment on above: Performed By: #### C MP ####[facility] Slx[address]xhfb[address] [place] [address]Dr. Farhat Leal Bilirubin [Mass/Vol] 0.5 mg/dL Normal 0.2-1.0 [facility] Comment on above: Performed By: #### C MP ####[facility] Xjxlxcgkzf3926 [place] [phone]. Farhat Leal Calcium [Mass/Vol] 8.5 mg/dL Normal 8.5-10.1 [facility] Comment on above: Performed By: #### C MP ####[facility] Mjzklqmsoz5884 [place] [id number]. Farhat Leal Chloride [Moles/Vol] 104 mmol/L Normal 98-107 [facility] Comment on above: Performed By: #### C MP ####[facility] Ouingvbizm[address] [place] [id number]. Farhat Leal CO2 [Moles/Vol] 27.6 mmol/L Normal 21.0-32.0 [facility] Comment on above: Performed By: #### C MP ####[facility] Ovhmmcesyf[address]10[address] [place], [place] [address]Dr. Farhat Elvis Creatinine [Mass/Vol] 1.79 mg/dL Critically high 0.70-1.30 [facility] Comment on above: Performed By: #### C MP ####[facility] Emqecjwtoy020[address] [place], [place] [address]Dr. Farhat Elvis EGFR-AF [place] 45 mL/min/1.73m2 Critically low >=60 [facility] Comment on above: Performed By: #### C MP ####[facility] Zp[address]igrlsb[address] [place] [address]Dr. Madelynlorri Elvis EGFR-NON AF [place] 37 mL/min/1.73m2 Critically low >=60 [facility] Comment on above: Performed By: #### C MP ####[facility] Hxhshyxtqh[address] [place], [place] [address]Dr. Madelynlorri Elvis Globulin (S) [Mass/Vol] 3.2 g/dL Normal [facility] Comment on above: Performed By: #### C MP ####[facility] Hjgymvoumm4[address] [place] [phone]. Farhat Leal Glucose [Mass/Vol] 203 mg/dL Critically high 74-106 [facility] Comment on above: Performed By: #### C MP ####[facility] Yj[address]uxzozd8243 [place] [address]Dr. Farhat Leal Potassium [Moles/Vol] 3.9 mmol/L Normal 3.5-5.1 [facility] Comment on above: Performed By: #### C MP ####[facility] Kafr[address]oojf[address] [place] [address]Dr. Farhat Leal Protein [Mass/Vol] 5.9 g/dL Critically low 6.4-8.2 [facility] Comment on above: Performed By: #### C MP ####[facility] V[address]iocqayt34[address] [place], [place] [address]Dr. Farhat Elvis Sodium [Moles/Vol] 140 mmol/L Normal 136-145 [facility] Comment on above: Performed By: #### C MP ####[facility] Gogndvcpdc4575[address] [place], [place] [address]Dr. Madelynlorri Leal Urea nitrogen [Mass/Vol] 61.0 mg/dL Critically high 7.0-18.0 [facility] Comment on above: Performed By: #### C MP ####[facility] Jtcrijtuvm876[address] [place], [place] [address]Dr. Farhat Elvis Urea nitrogen/Creatinine [Mass ratio] 34.1 mg/mg Normal [facility] Comment on above: Performed By: #### C MP ####[facility] Nqjxsgqzma[address] [place], [place] [address]Dr. Farhat Leal PROTIMEon 07-10-2022 INR Coag (PPP) [Relative time] 2.95 {INR} Normal [facility] Comment on above: Performed By: #### P T ####[facility] Tpxjpkuhfz42[address] [place], [place] [address]Dr. Farhat Leal INR GUIDELINES SEE BELOW Normal [facility] Comment on above: Result Comment: MALINA RED INR: 2.0 - 3.0 CONDITIONS NOT LISTED BELOW 2.5 - 3.5 FOR PROSTHETIC HEART VALVE REPLACEMENT 2.5 - 3.5 RECURRENT THROMBOSIS Performed By: #### P T ####[facility] Ha[address]rbqw[address] [place] [address]Dr. Madelynlorri Leal PT Coag (PPP) [Time] 29.4 s Critically high 9.0-11.6 [facility] Comment on above: Performed By: #### P T ####[facility] Ansuwunnuy4540[address] [place], [place] [address]Dr. Farhat Elvis FK506 (TACROLIMUS) WHOLE BLO ODon 07-07-2022 Tacrolimus (FK506), Blood 8.3 ng/mL Normal 2.0-20.0 [facility] Comment on above: Result Comment: Trou gh (immediately following transplant) 15.0 . Trough (steady state, 2 weeks or more after transplant): 3.0 - 8.0 . Performed by LC-MS/MS technology. Performed By: #### F K506T ####[facility] Irmlzayghw[address] [place], [place] [address]Dr. Madelynlorri Leal CBC AUTO DIFFon 07-03-2022 BASO # 0.0 103/ul Normal 0.0-0.1 [facility] Comment on above: Performed By: #### C BC ####[facility] Tyvyakqmki94[address] [place], [place] [address]Dr. Farhat Leal Basophils/100 WBC (Bld) 0.6 % Normal 0.2-2.0 [facility] Comment on above: Performed By: #### C BC ####[facility] Wzywqhcqca[address] [place], [place] [address]Dr. Farhat Leal EO # 0.3 103/ul Normal 0.0-0.7 [facility] Comment on above: Performed By: #### C BC ####[facility] Xschwtsfhk245[address] [place], [place] [address]Dr. Farhat Leal Eosinophils/100 WBC (Bld) 4.1 % Normal 0.9-7.0 [facility] Comment on above: Performed By: #### C BC ####[facility] Awvimhfwma2812[address] [place], [place] [address]Dr. Farhat Leal Erythrocyte distribution width (RBC) [Ratio] 14.0 % Normal 11.0-15.0 [facility] Comment on above: Performed By: #### C BC ####[facility] Job[address]tdjunh[address] [place] [address]Dr. Farhat Leal Hematocrit (Bld) [Volume fraction] 35.9 % Critically low 42.0-54.0 [facility] Comment on above: Performed By: #### C BC ####[facility] Itvyisndvp0912 [place] [address]Dr. Farhat Leal Hemoglobin (Bld) [Mass/Vol] 12.0 g/dL Critically low 14.0-18.0 [facility] Comment on above: Performed By: #### C BC ####[facility] Elzwjohbeh80[address] [place], [place] [address]Dr. Farhat Leal IG # 0.04 10e3/ul Critically high 0.00-0.03 [facility] Comment on above: Performed By: #### C BC ####[facility] Drfjuztwcd808[address] [place], [place] [address]Dr. Madelynlorri Leal IG % 0.6 % Critically high 0.0-0.5 [facility] Comment on above: Performed By: #### C BC ####[facility] Bxlgymdiad008[address] [place], [place] [address]Dr. Farhat Elvis LYMPH # 1.5 103/ul Normal 1.2-3.8 [facility] Comment on above: Performed By: #### C BC ####[facility] Ypbvvepvft37[address] [place], [place] [address]Dr. Madelynlorri Leal Lymphocytes/100 WBC (Bld) 21.5 % Normal 20.5-60.0 [facility] Comment on above: Performed By: #### C BC ####[facility] Wzjiiswmsd265[address] [place], [place] [address]Dr. Madelynlorri Leal MANUAL DIFF REQ NO Normal [facility] Comment on above: Performed By: #### C BC ####[facility] Tdfybicfbp4827[address] [place], [place] [address]Dr. Farhat Leal MCH (RBC) [Entitic mass] 30.8 pg Normal 25.9-34.0 [facility] Comment on above: Performed By: #### C BC ####[facility] [address]qpgmu55[address] [place] [id number]. Madelynlorri Leal MCHC (RBC) [Mass/Vol] 33.4 g/dL Normal 29.9-35.2 [facility] Comment on above: Performed By: #### C BC ####[facility] Ovgondcyaz5[address] [place] [id number]. Farhat Leal MCV (RBC) [Entitic vol] 92.1 fL Normal 80.0-94.0 [facility] Comment on above: Performed By: #### C BC ####[facility] Nsugoeboet269[address] [place], [place] [address]Dr. Farhat Leal MONO # 0.6 103/ul Normal 0.3-0.8 [facility] Comment on above: Performed By: #### C BC ####[facility] Rfqvsbxbpf386[address] [place], [place] [address]Dr. Farhat Leal Monocytes/100 WBC (Bld) 8.7 % Normal 1.7-12.0 [facility] Comment on above: Performed By: #### C BC ####[facility] Tpvpqnsfwe[address] [place], [place] [address]Dr. Farhat Leal NEUT # 4.4 103/ul Normal 1.4-6.5 [facility] Comment on above: Performed By: #### C BC ####[facility] Xquqoalmtv52[address] [place], [place] [address]Dr. Farhat Leal Neutrophils/100 WBC (Bld) 64.5 % Normal 43.0-75.0 [facility] Comment on above: Performed By: #### C BC ####[facility] Ufbhnufjvm039[address] [place], [place] [address]Dr. Farhat Leal Platelet mean volume (Bld) [Entitic vol] 10.1 fL Normal 9.5-13.5 [facility] Comment on above: Performed By: #### C BC ####[facility] Vfvfokkvcb[address] [place], [place] [address]Dr. Farhat Leal PLT 177 103/ul Normal 150-450 [facility] Comment on above: Performed By: #### C BC ####[facility] Idhfoaudwe8727 [place] [id number]. Madelynlorri Elvis RBC 3.90 106/ul Critically low 4.70-6.10 [facility] Comment on above: Performed By: #### C BC ####[facility] Ebepoiigtk7844 [place] [id number]. Farhat Leal WBC 6.8 103/ul Normal 4.0-11.0 [facility] Comment on above: Performed By: #### C BC ####[facility] Lrms[address]wohko[address] [place] [address]Dr. Farhat Leal PROF 14(COMP METB)on 023 Albumin [Mass/Vol] 2.8 g/dL Critically low 3.4-5.0 [facility] Comment on above: Performed By: #### C MP ####[facility] [address]auqyknxsk85[address] [place], [place] [address]Dr. Farhat Leal Albumin/Globulin [Mass ratio] 0.8 {ratio} Normal [facility] Comment on above: Performed By: #### C MP ####[facility] Dffubzchao[address] [place], [place] [address]Dr. Madelynlorri Leal ALP [Catalytic activity/Vol] 68 U/L Normal 46-116 [facility] Comment on above: Performed By: #### C MP ####[facility] Ejgxcarnwn0884 [place] [address]Dr. Farhat Leal ALT [Catalytic activity/Vol] 20 U/L Normal 16-63 [facility] Comment on above: Performed By: #### C MP ####[facility] Ouhdlxwfhd02[address] [place] [address]Dr. Farhat Leal Anion gap [Moles/Vol] 11.1 mmol/L Normal [facility] Comment on above: Performed By: #### C MP ####[facility] Bwychjahvj026[address] [place] [address]Dr. Farhat Leal AST [Catalytic activity/Vol] 22 U/L Normal 15-37 [facility] Comment on above: Performed By: #### C MP ####[facility] Vtdkeitepm3853 [place] [id number]. Farhat Leal Bilirubin [Mass/Vol] 0.4 mg/dL Normal 0.2-1.0 [facility] Comment on above: Performed By: #### C MP ####[facility] Gatphkdgxe6978 [place] [id number]. Farhat Leal Calcium [Mass/Vol] 8.5 mg/dL Normal 8.5-10.1 [facility] Comment on above: Performed By: #### C MP ####[facility] Jcvcnzazwo2782 [place] [address]Dr. Farhat Leal Chloride [Moles/Vol] 106 mmol/L Normal 98-107 [facility] Comment on above: Performed By: #### C MP ####[facility] Dxihbpahlc689[address] [place], [place] [address]Dr. Farhat Leal CO2 [Moles/Vol] 29.1 mmol/L Normal 21.0-32.0 [facility] Comment on above: Performed By: #### C MP ####[facility] Qbowvmrigx1078[address] [place], [place] [address]Dr. Farhat Leal Creatinine [Mass/Vol] 1.70 mg/dL Critically high 0.70-1.30 [facility] Comment on above: Performed By: #### C MP ####[facility] Ktrprwfuwu70[address] [place], [place] [address]Dr. Farhat Leal EGFR-AF [place] 48 mL/min/1.73m2 Critically low >=60 [facility] Comment on above: Performed By: #### C MP ####[facility] Gjiptmaink39[address] [place], [place] [address]Dr. Farhat Leal EGFR-NON AF [place] 39 mL/min/1.73m2 Critically low >=60 [facility] Comment on above: Performed By: #### C MP ####[facility] Zvrtexlcxs1037[address] [place], [place] [address]Dr. Farhat Leal Globulin (S) [Mass/Vol] 3.6 g/dL Normal [facility] Comment on above: Performed By: #### C MP ####[facility] Okscpddvhr13[address] [place] [address]Dr. Farhat Leal Glucose [Mass/Vol] 312 mg/dL Critically high 74-106 [facility] Comment on above: Performed By: #### C MP ####[facility] Mmfknntifm2818 [place] [address]Dr. Farhat Leal Potassium [Moles/Vol] 4.2 mmol/L Normal 3.5-5.1 [facility] Comment on above: Performed By: #### C MP ####[facility] Bdnaqsoslx4247 [place] [address]Dr. Farhat Leal Protein [Mass/Vol] 6.4 g/dL Normal 6.4-8.2 [facility] Comment on above: Performed By: #### C MP ####[facility] Kahmqvdsce[address] [place], [place] [address]Dr. Farhat Leal Sodium [Moles/Vol] 142 mmol/L Normal 136-145 [facility] Comment on above: Performed By: #### C MP ####[facility] Crrsujpmns40[address] [place], [place] [address]Dr. Farhat Leal Urea nitrogen [Mass/Vol] 49.0 mg/dL Critically high 7.0-18.0 [facility] Comment on above: Performed By: #### C MP ####[facility] Uanfymrbnh476[address] [place], [place] [address]Dr. Madelynlorri Elvis Urea nitrogen/Creatinine [Mass ratio] 28.8 mg/mg Normal [facility] Comment on above: Performed By: #### C MP ####[facility] Dgrodjemqz1899[address] [place], [place] [address]Dr. Farhat Leal PROTIMEon 07-03-2022 INR Coag (PPP) [Relative time] 2.23 {INR} Normal [facility] Comment on above: Performed By: #### P T ####[facility] Perpnwmgcm[address] [place], [place] [address]Dr. Farhat Leal INR GUIDELINES SEE BELOW Normal [facility] Comment on above: Result Comment: MALINA RED INR: 2.0 - 3.0 CONDITIONS NOT LISTED BELOW 2.5 - 3.5 FOR PROSTHETIC HEART VALVE REPLACEMENT 2.5 - 3.5 RECURRENT THROMBOSIS Performed By: #### P T ####[facility] Zrqfkpzpew5353 [place] [address]DrSkylar Farhat Leal PT Coag (PPP) [Time] 22.6 s Critically high 9.0-11.6 [facility] Comment on above: Performed By: #### P T ####[facility] Ywtkspexsl25[address] [place], [place] [address]DrSkylar Leal FK506 (TACROLIMUS) WHOLE BLO ODon 06-29-2022 Tacrolimus (FK506), Blood 12.2 ng/mL Normal 2.0-20.0 [facility] Comment on above: Result Comment: Trou gh (immediately following transplant) 15.0 . Trough (steady state, 2 weeks or more after transplant): 3.0 - 8.0 . Performed by LC-MS/MS technology. Performed By: #### F K506T ####[facility] Rlezkxfrdz[address] [place], [place] [address]Dr. Farhat Elvis CBC AUTO DIFFon 06-26-2022 BASO # 0.0 103/ul Normal 0.0-0.1 [facility] Comment on above: Performed By: #### C BC ####[facility] Zwtcwytear48[address] [place], [place] [address]Dr. Farhat Leal Basophils/100 WBC (Bld) 0.5 % Normal 0.2-2.0 [facility] Comment on above: Performed By: #### C BC ####[facility] Ydtsxlkuve819[address] [place], [place] [address]Dr. Farhat Leal EO # 0.3 103/ul Normal 0.0-0.7 [facility] [facility] Comment on above: Performed By: #### C BC ####[facility] Promhvzhph37[address] [place], [place] [address]Dr. Farhat Leal Eosinophils/100 WBC (Bld) 4.3 % Normal 0.9-7.0 [facility] Comment on above: Performed By: #### C BC ####[facility] Lkzsheutzf8269[address] [place], [place] [address]Dr. Farhat Leal Erythrocyte distribution width (RBC) [Ratio] 14.1 % Normal 11.0-15.0 [facility] Comment on above: Performed By: #### C BC ####[facility] Gastopfzss5[address] [place], [place] [address]Dr. Farhat Leal Hematocrit (Bld) [Volume fraction] 35.4 % Critically low 42.0-54.0 [facility] Comment on above: Performed By: #### C BC ####[facility] Xbxaokofsw6049[address] [place], [place] [address]Dr. Madelynlorri Leal Hemoglobin (Bld) [Mass/Vol] 11.8 g/dL Critically low 14.0-18.0 [facility] Comment on above: Performed By: #### C BC ####[facility] Tllbzbpcgp670[address] [place], [place] [address]Dr. Farhat Leal IG # 0.02 10e3/ul Normal 0.00-0.03 [facility] Comment on above: Performed By: #### C BC ####[facility] Udmsripiva8399[address] [place], [place] [address]Dr. Madelynlorri Leal IG % 0.3 % Normal 0.0-0.5 [facility] Comment on above: Performed By: #### C BC ####[facility] Fmpttjtyan0434[address] [place], [place] [address]Dr. Farhat Leal LYMPH # 2.4 103/ul Normal 1.2-3.8 [facility] Comment on above: Performed By: #### C BC ####[facility] Mmwghkufdd701[address] [place], [place] [address]Dr. Farhat Leal Lymphocytes/100 WBC (Bld) 40.4 % Normal 20.5-60.0 [facility] Comment on above: Performed By: #### C BC ####[facility] Zyxymhoclc209248 [address] [place], [place] [address]Dr. Farhat Leal MANUAL DIFF REQ NO Normal [facility] Comment on above: Performed By: #### C BC ####[facility] Byuqtynalg9513[address] [place], [place] [address]Dr. Farhat Leal MCH (RBC) [Entitic mass] 31.0 pg Normal 25.9-34.0 [facility] Comment on above: Performed By: #### C BC ####[facility] Aallwiclkx[address] [place] [address]Dr. Farhat Leal MCHC (RBC) [Mass/Vol] 33.3 g/dL Normal 29.9-35.2 [facility] Comment on above: Performed By: #### C BC ####[facility] Rllbpxuzow5[address] [place] [address]Dr. Farhat Elvis MCV (RBC) [Entitic vol] 92.9 fL Normal 80.0-94.0 [facility] Comment on above: Performed By: #### C BC ####[facility] Eatfvhxzwj26[address] [place] [address]Dr. Farhat Elvis MONO # 0.7 103/ul Normal 0.3-0.8 [facility] Comment on above: Performed By: #### C BC ####[facility] Youkrynvxn058348 [address] [place], [place] [address]Dr. Madelynlorri Leal Monocytes/100 WBC (Bld) 11.1 % Normal 1.7-12.0 [facility] Comment on above: Performed By: #### C BC ####[facility] Nogpavidtl709148 [address] [place], [place] [address]Dr. Frahat Leal NEUT # 2.6 103/ul Normal 1.4-6.5 [facility] Comment on above: Performed By: #### C BC ####[facility] Ldktyoctsl670648 [address] [place], [place] [address]Dr. Madelynlorri Leal Neutrophils/100 WBC (Bld) 43.4 % Normal 43.0-75.0 [facility] Comment on above: Performed By: #### C BC ####[facility] Tjpnfzfirw217348 [address] [place], [place] [address]Dr. Madelynlorri Leal Platelet mean volume (Bld) [Entitic vol] 10.4 fL Normal 9.5-13.5 [facility] Comment on above: Performed By: #### C BC ####[facility] Jafgsyroaw[address] [place] [id number]. Madelynlorri Elvis PLT 211 103/ul Normal 150-450 [facility] Comment on above: Performed By: #### C BC ####[facility] Gzymtmlfdd[address] [place] [address]Dr. Farhat Leal RBC 3.81 106/ul Critically low 4.70-6.10 [facility] Comment on above: Performed By: #### C BC ####[facility] Lsyynpbnfi69[address] [place] [address]Dr. Madelynlorri Elvis WBC 6.0 103/ul Normal 4.0-11.0 [facility] Comment on above: Performed By: #### C BC ####[facility] Bmrbkhjgbo2558 [place] [address]Dr. Farhat Leal PROF 14(COMP METB)on 023 Albumin [Mass/Vol] 2.6 g/dL Critically low 3.4-5.0 [facility] Comment on above: Performed By: #### C MP ####[facility] Lcrairmvzn131648 [address] [place], [place] [address]Dr. Farhat Leal Albumin/Globulin [Mass ratio] 0.8 {ratio} Normal [facility] Comment on above: Performed By: #### C MP ####[facility] Lcahsveouz4916[address] [place], [place] [address]Dr. Farhat Leal ALP [Catalytic activity/Vol] 64 U/L Normal 46-116 [facility] Comment on above: Performed By: #### C MP ####[facility] Wsagpmqwlh4605[address] [place], [place] [address]Dr. Farhat Leal ALT [Catalytic activity/Vol] 18 U/L Normal 16-63 [facility] Comment on above: Performed By: #### C MP ####[facility] Wiumavfvaw551448 [address] [place], [place] [address]Dr. Farhat Leal Anion gap [Moles/Vol] 10.2 mmol/L Normal [facility] Comment on above: Performed By: #### C MP ####[facility] Iuxzudfdgd67[address] [place], [place] [id number]. Farhat Leal AST [Catalytic activity/Vol] 16 U/L Normal 15-37 [facility] Comment on above: Performed By: #### C MP ####[facility] Vikmvfdyfj0605 [place] [address]Dr. Farhat Leal Bilirubin [Mass/Vol] 0.6 mg/dL Normal 0.2-1.0 [facility] Comment on above: Performed By: #### C MP ####[facility] Znnqftknue7813[address] [place], [place] [address]Dr. Farhat Leal Calcium [Mass/Vol] 8.5 mg/dL Normal 8.5-10.1 [facility] Comment on above: Performed By: #### C MP ####[facility] Vgmuwksgpr0375[address] [place], [place] [address]Dr. Farhat Leal Chloride [Moles/Vol] 106 mmol/L Normal 98-107 [facility] Comment on above: Performed By: #### C MP ####[facility] Genninlxxu0347[address] [place], [place] [address]Dr. Farhat Leal CO2 [Moles/Vol] 29.8 mmol/L Normal 21.0-32.0 [facility] Comment on above: Performed By: #### C MP ####[facility] Ittywjomhq720348 [address] [place], [place] [address]Dr. Farhat Leal Creatinine [Mass/Vol] 1.60 mg/dL Critically high 0.70-1.30 [facility] Comment on above: Performed By: #### C MP ####[facility] Phsaxuizsf523448 [address] [place], [place] [address]Dr. Farhat Leal EGFR-AF [place] 51 mL/min/1.73m2 Critically low >=60 [facility] Comment on above: Performed By: #### C MP ####[facility] Otlcyywhmp265248 [address] [place], [place] [address]Dr. Farhat Leal EGFR-NON AF [place] 42 mL/min/1.73m2 Critically low >=60 [facility] Comment on above: Performed By: #### C MP ####[facility] Aoqapbpefe9913 [place] [address]Dr. Farhat Leal Globulin (S) [Mass/Vol] 3.4 g/dL Normal [facility] Comment on above: Performed By: #### C MP ####[facility] Wbucpetbcr7416[address] [place], [place] [address]Dr. Farhat Leal Glucose [Mass/Vol] 178 mg/dL Critically high 74-106 T [facility] Comment on above: Performed By: #### C MP ####[facility] Bedrgyxziz509848 [address] [place], [place] [address]Dr. Farhat Leal Potassium [Moles/Vol] 4.0 mmol/L Normal 3.5-5.1 [facility] Comment on above: Performed By: #### C MP ####[facility] Qighhgvvlp742548 [address] [place], [place] [address]Dr. Farhat Leal Protein [Mass/Vol] 6.0 g/dL Critically low 6.4-8.2 Th [facility] Comment on above: Performed By: #### C MP ####[facility] Abnilptjfw179348 [address] [place], [place] [address]Dr. Farhat Leal Sodium [Moles/Vol] 142 mmol/L Normal 136-145 [facility] Comment on above: Performed By: #### C MP ####[facility] Fonotwszzg344848 [address] [place], [place] [address]Dr. Farhat Leal Urea nitrogen [Mass/Vol] 49.0 mg/dL Critically high 7.0-18.0 [facility] Comment on above: Performed By: #### C MP ####[facility] Rxvlkbavch251948 [address] [place], [place] [address]Dr. Farhat Leal Urea nitrogen/Creatinine [Mass ratio] 30.6 mg/mg Normal [facility] Comment on above: Performed By: #### C MP ####[facility] Eegcxiqaxo1324[address] [place], [place] [address]Dr. Farhat Leal PROTIMEon 06-26-2022 INR Coag (PPP) [Relative time] 1.77 {INR} Normal [facility] Comment on above: Performed By: #### P T ####[facility] Auunzdozeb06[address] [place] [address]DrSkylar Leal INR GUIDELINES SEE BELOW Normal [facility] Comment on above: Result Comment: MALINA RED INR: 2.0 - 3.0 CONDITIONS NOT LISTED BELOW 2.5 - 3.5 FOR PROSTHETIC HEART VALVE REPLACEMENT 2.5 - 3.5 RECURRENT THROMBOSIS Performed By: #### P T ####[facility] Gpyalkkifq6285[address] [place], [place] [address]Dr. Farhat Leal PT Coag (PPP) [Time] 18.2 s Critically high 9.0-11.6 [facility] Comment on above: Performed By: #### P T ####[facility] Skyiedaqki2755[address] [place], [place] [address]DrSkylar Leal FK506 (TACROLIMUS) WHOLE BLO ODon 06-22-2022 Tacrolimus (FK506), Blood 24.5 ng/mL Invalid Interpretation Code 2.0-20.0 [facility] Comment on above: Result Comment: Trou gh (immediately following transplant) 15.0 . Trough (steady state, 2 weeks or more after transplant): 3.0 - 8.0 . Performed by LC-MS/MS technology.Patient drug level exceeds published reference range. Evaluateclinically for signs of potential toxicity. Performed By: #### F K506T ####[facility] Hnvpvzeglv9614[address] [place], [place] [address]Dr. Farhat Leal CBC AUTO DIFFon 06-19-2022 BASO # 0.1 103/ul Normal 0.0-0.1 [facility] Comment on above: Performed By: #### C BC ####[facility] Lllizhqaji7960[address] [place], [place] [address]Dr. Farhat Leal Basophils/100 WBC (Bld) 0.7 % Normal 0.2-2.0 [facility] Comment on above: Performed By: #### C BC ####[facility] Kwaznndtod9357[address] [place], [place] [address]DrSkylar Leal EO # 0.4 103/ul Normal 0.0-0.7 [facility] Comment on above: Performed By: #### C BC ####[facility] Qkcttfeaka5849 [place] [address]Dr. Farhat Leal Eosinophils/100 WBC (Bld) 5.7 % Normal 0.9-7.0 [facility] Comment on above: Performed By: #### C BC ####[facility] Kmhklflles0733 [place] [address]Dr. Farhat Leal Erythrocyte distribution width (RBC) [Ratio] 14.5 % Normal 11.0-15.0 [facility] Comment on above: Performed By: #### C BC ####[facility] Upgmoswowb1399[address] [place], [place] [address]Dr. Farhat Leal Hematocrit (Bld) [Volume fraction] 34.1 % Critically low 42.0-54.0 [facility] Comment on above: Performed By: #### C BC ####[facility] Wxhngfuowq86364[address] [place], [place] [address]Dr. Farhat Leal Hemoglobin (Bld) [Mass/Vol] 11.3 g/dL Critically low 14.0-18.0 [facility] Comment on above: Performed By: #### C BC ####[facility] Rsdsdwcdsz718848 [address] [place], [place] [address]Dr. Farhat Leal IG # 0.02 10e3/ul Normal 0.00-0.03 [facility] Comment on above: Performed By: #### C BC ####[facility] Amvqoqiwdy2707[address] [place], [place] [address]Dr. Farhat Leal IG % 0.3 % Normal 0.0-0.5 [facility] Comment on above: Performed By: #### C BC ####[facility] Jxaserdybf999[address] [place], [place] [address]Dr. Farhat Leal LYMPH # 3.1 103/ul Normal 1.2-3.8 [facility] Comment on above: Performed By: #### C BC ####[facility] Yalwxarsbk709[address] [place], [place] [address]Dr. Farhat Leal Lymphocytes/100 WBC (Bld) 40.6 % Normal 20.5-60.0 [facility] Comment on above: Performed By: #### C BC ####[facility] Cjaaemfbic4[address] [place] [id number]. Farhat Leal MANUAL DIFF REQ NO Normal [facility] Comment on above: Performed By: #### C BC ####[facility] Oyjmpghgwq8578 [place] [id number]. Farhat Leal MCH (RBC) [Entitic mass] 30.6 pg Normal 25.9-34.0 [facility] Comment on above: Performed By: #### C BC ####[facility] Erykuxeazy[address] [place] [address]Dr. Farhat Leal MCHC (RBC) [Mass/Vol] 33.1 g/dL Normal 29.9-35.2 [facility] Comment on above: Performed By: #### C BC ####[facility] Lcfwpowdya0463 [place] [address]Dr. Farhat Leal MCV (RBC) [Entitic vol] 92.4 fL Normal 80.0-94.0 [facility] Comment on above: Performed By: #### C BC ####[facility] Pemkyigpen317[address] [place], [place] [address]Dr. Farhat Elvis MONO # 0.8 103/ul Normal 0.3-0.8 [facility] Comment on above: Performed By: #### C BC ####[facility] Cwmktqhxqi365[address] [place], [place] [address]Dr. Farhat Elvis Monocytes/100 WBC (Bld) 10.6 % Normal 1.7-12.0 [facility] Comment on above: Performed By: #### C BC ####[facility] Akvoermbyw401148 [address] [place], [place] [address]Dr. Farhat Leal NEUT # 3.2 103/ul Normal 1.4-6.5 [facility] Comment on above: Performed By: #### C BC ####[facility] Dtesuifeex319[address] [place], [place] [address]Dr. Madelynlorri Leal Neutrophils/100 WBC (Bld) 42.1 % Critically low 43.0-75.0 [facility] Comment on above: Performed By: #### C BC ####[facility] Ifrifsebgb9863 [place] [id number]. Farhat Leal Platelet mean volume (Bld) [Entitic vol] 10.6 fL Normal 9.5-13.5 [facility] Comment on above: Performed By: #### C BC ####[facility] Yedrplwfae3129 [place] [id number]. Farhat Leal PLT 187 103/ul Normal 150-450 [facility] Comment on above: Performed By: #### C BC ####[facility] Sexnnwicrr8027 [place] [address]Dr. Farhat Leal RBC 3.69 106/ul Critically low 4.70-6.10 [facility] Comment on above: Performed By: #### C BC ####[facility] Hrdskklrrd1777 [place] [address]Dr. Farhat Leal WBC 7.7 103/ul Normal 4.0-11.0 [facility] Comment on above: Performed By: #### C BC ####[facility] Yrmooatukn299[address] [place] [address]Dr. Farhat Leal PROF 14(COMP METB)on 023 Albumin [Mass/Vol] 2.5 g/dL Critically low 3.4-5.0 [facility] Comment on above: Performed By: #### C MP ####[facility] Ghbxxhomee0293 [place] [address]Dr. Farhat Leal Albumin/Globulin [Mass ratio] 0.8 {ratio} Normal [facility] Comment on above: Performed By: #### C MP ####[facility] Iasdijrijg8382 [place] [address]Dr. Farhat Leal ALP [Catalytic activity/Vol] 60 U/L Normal 46-116 [facility] Comment on above: Performed By: #### C MP ####[facility] Jjbhxopgnx8962 [place] [address]Dr. Farhat Leal ALT [Catalytic activity/Vol] 16 U/L Normal 16-63 [facility] Comment on above: Performed By: #### C MP ####[facility] Ksarbxpwpj2833 [place] [address]Dr. Farhat Leal Anion gap [Moles/Vol] 9.1 mmol/L Normal [facility] Comment on above: Performed By: #### C MP ####[facility] Usdiyasyyw2725[address] [place], [place] [address]Dr. Farhat Leal AST [Catalytic activity/Vol] 31 U/L Normal 15-37 [facility] Comment on above: Performed By: #### C MP ####[facility] Fxenhmnayx9912[address] [place], [place] [address]Dr. Farhat Leal Bilirubin [Mass/Vol] 0.3 mg/dL Normal 0.2-1.0 [facility] Comment on above: Performed By: #### C MP ####[facility] Rflmtqkxni9318[address] [place], [place] [address]Dr. Farhat Leal Calcium [Mass/Vol] 8.2 mg/dL Critically low 8.5-10.1 Th [facility] Comment on above: Performed By: #### C MP ####[facility] Bcvbfntuvt339648 [address] [place], [place] [address]Dr. Farhat Leal Chloride [Moles/Vol] 106 mmol/L Normal 98-107 [facility] Comment on above: Performed By: #### C MP ####[facility] Kpfpznpuuv1664[address] [place], [place] [address]Dr. Farhat Leal CO2 [Moles/Vol] 27.0 mmol/L Normal 21.0-32.0 [facility] Comment on above: Performed By: #### C MP ####[facility] Lzvhsopgcy8098[address] [place], [place] [address]Dr. Farhat Elvis Creatinine [Mass/Vol] 1.51 mg/dL Critically high 0.70-1.30 [facility] Comment on above: Performed By: #### C MP ####[facility] Vzhqyfhsho165648 [address] [place], [place] [address]Dr. Farhat Elvis EGFR-AF [place] 55 mL/min/1.73m2 Critically low >=60 [facility] Comment on above: Performed By: #### C MP ####[facility] Eluifaosba3451 [place] [address]Dr. Farhat Leal EGFR-NON AF [place] 45 mL/min/1.73m2 Critically low >=60 [facility] Comment on above: Performed By: #### C MP ####[facility] Kihumlppmk0124 [place] [address]Dr. Farhat Leal Globulin (S) [Mass/Vol] 3.2 g/dL Normal [facility] Comment on above: Performed By: #### C MP ####[facility] Vfgciavboj1377 [place] [address]Dr. Farhat Leal Glucose [Mass/Vol] 165 mg/dL Critically high 74-106 T [facility] Comment on above: Performed By: #### C MP ####[facility] Uuffoakwqt2818 [place] [address]Dr. Farhat Leal Potassium [Moles/Vol] 4.1 mmol/L Normal 3.5-5.1 [facility] Comment on above: Performed By: #### C MP ####[facility] Fjaimtctlr2059[address] [place], [place] [address]Dr. Farhat Leal Protein [Mass/Vol] 5.7 g/dL Critically low 6.4-8.2 Th [facility] Comment on above: Performed By: #### C MP ####[facility] Ifmxqagmsq455348 [address] [place], [place] [address]Dr. Farhat Leal Sodium [Moles/Vol] 138 mmol/L Normal 136-145 [facility] Comment on above: Performed By: #### C MP ####[facility] Tuxxyovhpp9888 [place] [address]Dr. Farhat Leal Urea nitrogen [Mass/Vol] 51.0 mg/dL Critically high 7.0-18.0 [facility] Comment on above: Performed By: #### C MP ####[facility] Lcspbqgcql6679[address] [place], [place] [address]Dr. Farhat Leal Urea nitrogen/Creatinine [Mass ratio] 33.8 mg/mg Normal [facility] Comment on above: Performed By: #### C MP ####[facility] Zravapzwcg8187[address] [place], [place] [address]Dr. Farhat Leal FK506 (TACROLIMUS) WHOLE BLO ODon 06-15-2022 Tacrolimus (FK506), Blood 16.4 ng/mL Normal 2.0-20.0 [facility] Comment on above: Result Comment: Trou gh (immediately following transplant) 15.0 . Trough (steady state, 2 weeks or more after transplant): 3.0 - 8.0 . Performed by LC-MS/MS technology. Performed By: #### F K506T ####[facility] Wzsvgxzsgf9713[address] [place], [place] [address]Dr. Farhat Leal PROTIMEon 06-15-2022 INR Coag (PPP) [Relative time] 1.64 {INR} Normal [facility] Comment on above: Performed By: #### P T ####[facility] Oughekonrj230348 [address] [place], [place] [address]Dr. Farhat Leal INR GUIDELINES SEE BELOW Normal [facility] Comment on above: Result Comment: MALINA RED INR: 2.0 - 3.0 CONDITIONS NOT LISTED BELOW 2.5 - 3.5 FOR PROSTHETIC HEART VALVE REPLACEMENT 2.5 - 3.5 RECURRENT THROMBOSIS Performed By: #### P T ####[facility] Fitfehifnm745148 [address] [place], [place] [address]DrSkylar Leal PT Coag (PPP) [Time] 16.9 s Critically high 9.0-11.6 [facility] Comment on above: Performed By: #### P T ####[facility] Xncakbuavj587348 [address] [place], [place] [address]DrSkylar Leal CBC AUTO DIFFon 06-12-2022 BASO # 0.0 103/ul Normal 0.0-0.1 [facility] Comment on above: Performed By: #### C BC ####[facility] Orzmkaiihm316[address] [place], [place] [address]DrSkylar Leal Basophils/100 WBC (Bld) 0.4 % Normal 0.2-2.0 [facility] Comment on above: Performed By: #### C BC ####[facility] Onjryaerhv5755[address] [place], [place] [address]DrSkylar Leal EO # 0.4 103/ul Normal 0.0-0.7 [facility] Comment on above: Performed By: #### C BC ####[facility] Clhitmqhts659748 [address] [place], [place] [address]Dr. Farhat Leal Eosinophils/100 WBC (Bld) 5.4 % Normal 0.9-7.0 [facility] Comment on above: Performed By: #### C BC ####[facility] Cntikluqcw108248 [address] [place], [place] [address]Dr. Farhat Leal Erythrocyte distribution width (RBC) [Ratio] 14.7 % Normal 11.0-15.0 [facility] Comment on above: Performed By: #### C BC ####[facility] Zpqynvojjy949648 [address] [place], [place] [address]Dr. Farhat Leal Hematocrit (Bld) [Volume fraction] 34.8 % Critically low 42.0-54.0 [facility] Comment on above: Performed By: #### C BC ####[facility] Pznvszwbvf0948[address] [place], [place] [address]Dr. Farhat Leal Hemoglobin (Bld) [Mass/Vol] 11.7 g/dL Critically low 14.0-18.0 [facility] Comment on above: Performed By: #### C BC ####[facility] Wmjmzjimdl9097[address] [place], [place] [address]Dr. Farhat Elvis IG # 0.02 10e3/ul Normal 0.00-0.03 [facility] Comment on above: Performed By: #### C BC ####[facility] Lvqndnyfwm9914[address] [place], [place] [address]Dr. Farhat Elvis IG % 0.3 % Normal 0.0-0.5 [facility] Comment on above: Performed By: #### C BC ####[facility] Ybepnsklwk178248 [address] [place], [place] [address]Dr. Farhat Leal LYMPH # 2.5 103/ul Normal 1.2-3.8 [facility] Comment on above: Performed By: #### C BC ####[facility] Qasbkdrlgz8969[address] [place], [place] [address]DrSkylar Leal Lymphocytes/100 WBC (Bld) 36.8 % Normal 20.5-60.0 [facility] Comment on above: Performed By: #### C BC ####[facility] Ynpeqduuzl0918 [place] [address]DrSkylar Leal MANUAL DIFF REQ NO Normal [facility] Comment on above: Performed By: #### C BC ####[facility] Vmmbpuzqdp6305 [place] [address]DrSkylar Leal MCH (RBC) [Entitic mass] 30.9 pg Normal 25.9-34.0 [facility] Comment on above: Performed By: #### C BC ####[facility] Jxraldwvor9769[address] [place], [place] [address]DrSkylar Leal MCHC (RBC) [Mass/Vol] 33.6 g/dL Normal 29.9-35.2 [facility] Comment on above: Performed By: #### C BC ####[facility] Gmpxnnffic9500[address] [place], [place] [address]DrSkylar Leal MCV (RBC) [Entitic vol] 91.8 fL Normal 80.0-94.0 [facility] Comment on above: Performed By: #### C BC ####[facility] Klerxgzauj2100[address] [place], [place] [address]DrSkylar Leal MONO # 0.8 103/ul Normal 0.3-0.8 [facility] Comment on above: Performed By: #### C BC ####[facility] Mosfqghhow1689[address] [place], [place] [address]DrSkylar Leal Monocytes/100 WBC (Bld) 11.9 % Normal 1.7-12.0 [facility] Comment on above: Performed By: #### C BC ####[facility] Lyeokvoizu019[address] [place], [place] [address]DrSkylar Leal NEUT # 3.1 103/ul Normal 1.4-6.5 [facility] Comment on above: Performed By: #### C BC ####[facility] Rivkqnzrew778[address] [place], [place] [address]DrSkylar Leal Neutrophils/100 WBC (Bld) 45.2 % Normal 43.0-75.0 [facility] Comment on above: Performed By: #### C BC ####[facility] Dntfwzygar4557 [place] [address]Dr. Farhat Leal Platelet mean volume (Bld) [Entitic vol] 10.5 fL Normal 9.5-13.5 [facility] Comment on above: Performed By: #### C BC ####[facility] Yspruibxby[address] [place] [address]Dr. Farhat Leal PLT 175 103/ul Normal 150-450 [facility] Comment on above: Performed By: #### C BC ####[facility] Ajzkkkmklu[address] [place], [place] [address]Dr. Farhat Leal RBC 3.79 106/ul Critically low 4.70-6.10 [facility] Comment on above: Performed By: #### C BC ####[facility] Vamevracea11[address] [place], [place] [address]Dr. Farhat Leal WBC 6.8 103/ul Normal 4.0-11.0 [facility] Comment on above: Performed By: #### C BC ####[facility] Jelmuhjgbj278[address] [place], [place] [address]Dr. Farhat Leal MAGNESIUMon 06-12-2022 Magnesium [Mass/Vol] 1.6 mg/dL Critically low 1.8-2.4 [facility] Comment on above: Performed By: #### C MP, MG, PHOS ####[facility] Tuodybjyca30[address] [place], [place] [address]Dr. Farhat Leal PHOSPHORUSon 06-12-2022 Phosphate [Mass/Vol] 3.8 mg/dL Normal 2.6-4.7 [facility] Comment on above: Performed By: #### C MP, MG, PHOS ####[facility] Eozisoufbj3815[address] [place], [place] [address]Dr. Farhat Leal PROF 14(COMP METB)on 023 Albumin [Mass/Vol] 2.6 g/dL Critically low 3.4-5.0 [facility] Comment on above: Performed By: #### C MP, MG, PHOS ####[facility] Yqfmjrbztl7[address] [place] [address]Dr. Farhat Elvis Albumin/Globulin [Mass ratio] 0.8 {ratio} Normal [facility] Comment on above: Performed By: #### C MP, MG, PHOS ####[facility] Nfixjdlmma2174 [place] [address]Dr. Farhat Elvis ALP [Catalytic activity/Vol] 64 U/L Normal 46-116 [facility] Comment on above: Performed By: #### C MP, MG, PHOS ####[facility] Vmyzdpviso630[address] [place], [place] [address]Dr. Farhat Elvis ALT [Catalytic activity/Vol] 18 U/L Normal 16-63 [facility] Comment on above: Performed By: #### C MP, MG, PHOS ####[facility] Kpdkayeroq4450[address] [place], [place] [address]Dr. Farhat Leal Anion gap [Moles/Vol] 12.9 mmol/L Normal [facility] Comment on above: Performed By: #### C MP, MG, PHOS ####[facility] Stqfmficyo027[address] [place], [place] [address]Dr. Madelynlorri Leal AST [Catalytic activity/Vol] 18 U/L Normal 15-37 [facility] Comment on above: Performed By: #### C MP, MG, PHOS ####[facility] Klmrdlxizy797[address] [place], [place] [address]Dr. Farhat Leal Bilirubin [Mass/Vol] 0.4 mg/dL Normal 0.2-1.0 [facility] Comment on above: Performed By: #### C MP, MG, PHOS ####[facility] Giybxajdhm8718[address] [place], [place] [address]Dr. Farhat Leal Calcium [Mass/Vol] 8.7 mg/dL Normal 8.5-10.1 [facility] Comment on above: Performed By: #### C MP, MG, PHOS ####[facility] Kppufomrek174348 [address] [place], [place] [address]Dr. Farhat Leal Chloride [Moles/Vol] 105 mmol/L Normal 98-107 [facility] Comment on above: Performed By: #### C MP, MG, PHOS ####[facility] Mqfuosbbez0891 [place] [address]Dr. Farhat Leal CO2 [Moles/Vol] 27.9 mmol/L Normal 21.0-32.0 [facility] Comment on above: Performed By: #### C MP, MG, PHOS ####[facility] Pteiwauncv8937[address] [place], [place] [address]Dr. Farhat Leal Creatinine [Mass/Vol] 1.53 mg/dL Critically high 0.70-1.30 [facility] Comment on above: Performed By: #### C MP, MG, PHOS ####[facility] Plytepalhr037[address] [place], [place] [address]Dr. Farhat Leal EGFR-AF [place] 54 mL/min/1.73m2 Critically low >=60 [facility] Comment on above: Performed By: #### C MP, MG, PHOS ####[facility] Spenlnxpco5929[address] [place], [place] [address]Dr. Farhat Leal EGFR-NON AF [place] 44 mL/min/1.73m2 Critically low >=60 [facility] Comment on above: Performed By: #### C MP, MG, PHOS ####[facility] Qlwsxozzir0501[address] [place], [place] [address]Dr. Farhat Leal Globulin (S) [Mass/Vol] 3.4 g/dL Normal [facility] Comment on above: Performed By: #### C MP, MG, PHOS ####[facility] Alkweytzmk[address] [place] [address]Dr. Farhat Leal Glucose [Mass/Vol] 179 mg/dL Critically high 74-106 [facility] Comment on above: Performed By: #### C MP, MG, PHOS ####[facility] Hksmfqnbmu7737[address] [place], [place] [address]Dr. Farhat Leal Potassium [Moles/Vol] 3.8 mmol/L Normal 3.5-5.1 [facility] Comment on above: Performed By: #### C MP, MG, PHOS ####[facility] Ufqybvtlzr7624 [place] [address]Dr. Farhat Leal Protein [Mass/Vol] 6.0 g/dL Critically low 6.4-8.2 [facility] Comment on above: Performed By: #### C MP, MG, PHOS ####[facility] Pevkgworme9432 [place] [address]Dr. Farhat Leal Sodium [Moles/Vol] 142 mmol/L Normal 136-145 [facility] Comment on above: Performed By: #### C MP, MG, PHOS ####[facility] Avkqwqtfdq0259[address] [place], [place] [address]Dr. Madelynlorri Leal Urea nitrogen [Mass/Vol] 56.0 mg/dL Critically high 7.0-18.0 [facility] Comment on above: Performed By: #### C MP, MG, PHOS ####[facility] Holuctgbgz1664[address] [place], [place] [address]Dr. Farhat Leal Urea nitrogen/Creatinine [Mass ratio] 36.6 mg/mg Normal [facility] Comment on above: Performed By: #### C MP, MG, PHOS ####[facility] Preyrubbns319[address] [place], [place] [address]Dr. Madelynlorri Leal FK506 (TACROLIMUS) WHOLE BLO ODon 06-08-2022 Tacrolimus (FK506), Blood 13.2 ng/mL Normal 2.0-20.0 [facility] Comment on above: Result Comment: Trou gh (immediately following transplant) 15.0 . Trough (steady state, 2 weeks or more after transplant): 3.0 - 8.0 . Performed by LC-MS/MS technology. Performed By: #### F K506T ####[facility] Bffxkzvowf2665[address] [place], [place] [address]Dr. Farhat Leal CBC AUTO DIFFon 06-05-2022 BASO # 0.1 103/ul Normal 0.0-0.1 [facility] Comment on above: Performed By: #### C BC ####[facility] Jomsfssujc8958[address] [place], [place] [address]Dr. Farhat Leal Basophils/100 WBC (Bld) 0.8 % Normal 0.2-2.0 [facility] Comment on above: Performed By: #### C BC ####[facility] Yrliajdhvg8377[address] [place], [place] [address]Dr. Farhat Leal EO # 0.3 103/ul Normal 0.0-0.7 [facility] Comment on above: Performed By: #### C BC ####[facility] Yxkkrleqez4023[address] [place], [place] [address]Dr. Farhat Leal Eosinophils/100 WBC (Bld) 4.7 % Normal 0.9-7.0 [facility] Comment on above: Performed By: #### C BC ####[facility] Djcdbybmfq519[address] [place], [place] [address]Dr. Farhat Leal Erythrocyte distribution width (RBC) [Ratio] 15.1 % Critically high 11.0-15.0 [facility] Comment on above: Performed By: #### C BC ####[facility] Tmifoqrtly355[address] [place], [place] [address]Dr. Farhat Leal Hematocrit (Bld) [Volume fraction] 35.5 % Critically low 42.0-54.0 [facility] Comment on above: Performed By: #### C BC ####[facility] Ygbrlktrxh445[address] [place], [place] [address]Dr. Farhat Leal Hemoglobin (Bld) [Mass/Vol] 11.7 g/dL Critically low 14.0-18.0 [facility] Comment on above: Performed By: #### C BC ####[facility] Exdljzznho2775[address] [place], [place] [address]Dr. Farhat Leal IG # 0.01 10e3/ul Normal 0.00-0.03 [facility] Comment on above: Performed By: #### C BC ####[facility] Cnduksrsbu7735[address] [place], [place] [address]Dr. Farhat Leal IG % 0.2 % Normal 0.0-0.5 [facility] Comment on above: Performed By: #### C BC ####[facility] Uqofsjoywm5150 [place] [id number]. Madelynlorri Leal LYMPH # 2.1 103/ul Normal 1.2-3.8 [facility] Comment on above: Performed By: #### C BC ####[facility] Iljdgsbhkk8687 [place] [id number]. Farhat Leal Lymphocytes/100 WBC (Bld) 34.5 % Normal 20.5-60.0 [facility] Comment on above: Performed By: #### C BC ####[facility] Qvclicbgcw6308 [place] [address]Dr. Farhat Leal MANUAL DIFF REQ NO Normal [facility] Comment on above: Performed By: #### C BC ####[facility] Deflvziemw7461 [place] [address]Dr. Madelynlorri Leal MCH (RBC) [Entitic mass] 30.6 pg Normal 25.9-34.0 [facility] Comment on above: Performed By: #### C BC ####[facility] Vnnyhbpuay[address] [place] [address]Dr. Madelynlorri Leal MCHC (RBC) [Mass/Vol] 33.0 g/dL Normal 29.9-35.2 [facility] Comment on above: Performed By: #### C BC ####[facility] Eegduectqm6575 [place] [address]Dr. Farhat Leal MCV (RBC) [Entitic vol] 92.9 fL Normal 80.0-94.0 [facility] Comment on above: Performed By: #### C BC ####[facility] Jthgwgufci26[address] [place] [address]Dr. Farhat Leal MONO # 0.7 103/ul Normal 0.3-0.8 [facility] Comment on above: Performed By: #### C BC ####[facility] Lxdkkzjkrd249[address] [place], [place] [address]Dr. Farhat Leal Monocytes/100 WBC (Bld) 11.4 % Normal 1.7-12.0 [facility] Comment on above: Performed By: #### C BC ####[facility] Cirshwrdjn6[address] [place] [id number]. Farhat Leal NEUT # 2.9 103/ul Normal 1.4-6.5 [facility] Comment on above: Performed By: #### C BC ####[facility] Vxqbgevgqj9780 [place] [address]Dr. Farhat Leal Neutrophils/100 WBC (Bld) 48.4 % Normal 43.0-75.0 [facility] Comment on above: Performed By: #### C BC ####[facility] Lappgzrvgy6891 [place] [address]Dr. Farhat Leal Platelet mean volume (Bld) [Entitic vol] 10.7 fL Normal 9.5-13.5 [facility] Comment on above: Performed By: #### C BC ####[facility] Iwkfhqmvlz5619 [place] [address]Dr. Farhat Leal PLT 185 103/ul Normal 150-450 [facility] Comment on above: Performed By: #### C BC ####[facility] Hewjxbmrni439[address] [place], [place] [address]Dr. Farhat Leal RBC 3.82 106/ul Critically low 4.70-6.10 [facility] Comment on above: Performed By: #### C BC ####[facility] Vrxvrzhqjt1296 [place] [address]Dr. Farhat Leal WBC 6.0 103/ul Normal 4.0-11.0 [facility] Comment on above: Performed By: #### C BC ####[facility] Joosjvenkt30[address] [place], [place] [address]Dr. Farhat Leal MAGNESIUMon 06-05-2022 Magnesium [Mass/Vol] 1.9 mg/dL Normal 1.8-2.4 [facility] Comment on above: Performed By: #### P HOS, MG ####[facility] Obaakcxppn09[address] [place], [place] [address]Dr. Farhat Leal PHOSPHORUSon 06-05-2022 Phosphate [Mass/Vol] 4.4 mg/dL Normal 2.6-4.7 [facility] Comment on above: Performed By: #### P HOS, MG ####[facility] Cmpkftyfha27[address] [place] [address]Dr. Farhat Leal PROTIMEon 06-05-2022 INR Coag (PPP) [Relative time] 2.16 {INR} Normal [facility] Comment on above: Performed By: #### P T ####[facility] Ksaymjxibh5108 [place] [address]Dr. Farhat Leal INR GUIDELINES SEE BELOW Normal [facility] Comment on above: Result Comment: MALINA RED INR: 2.0 - 3.0 CONDITIONS NOT LISTED BELOW 2.5 - 3.5 FOR PROSTHETIC HEART VALVE REPLACEMENT 2.5 - 3.5 RECURRENT THROMBOSIS Performed By: #### P T ####[facility] Bkqjjjogdd6[address] [place], [place] [address]Dr. Farhat Leal PT Coag (PPP) [Time] 21.9 s Critically high 9.0-11.6 [facility] Comment on above: Performed By: #### P T ####[facility] Cfyysdieqv0017[address] [place], [place] [address]Dr. Farhat Leal FK506 (TACROLIMUS) WHOLE BLO ODon 06-01-2022 Tacrolimus (FK506), Blood 26.4 ng/mL Invalid Interpretation Code 2.0-20.0 [facility] Comment on above: Result Comment: Trou gh (immediately following transplant) 15.0 . Trough (steady state, 2 weeks or more after transplant): 3.0 - 8.0 . Performed by LC-MS/MS technology.Patient drug level exceeds published reference range. Evaluateclinically for signs of potential toxicity. Performed By: #### F K506T ####[facility] Wzbahrpmnl524[address] [place], [place] [address]Dr. Farhat Leal CBC AUTO DIFFon 05-29-2022 BASO # 0.0 103/ul Normal 0.0-0.1 [facility] Comment on above: Performed By: #### C BC ####[facility] Nlaiwysonw427[address] [place], [place] [address]Dr. Farhat Leal Basophils/100 WBC (Bld) 0.6 % Normal 0.2-2.0 [facility] Comment on above: Performed By: #### C BC ####[facility] Tvpogpwujn4393 [place] [address]Dr. Farhat Leal EO # 0.3 103/ul Normal 0.0-0.7 [facility] Comment on above: Performed By: #### C BC ####[facility] Icwwrjebge669[address] [place], [place] [address]Dr. Farhat Leal Eosinophils/100 WBC (Bld) 4.7 % Normal 0.9-7.0 [facility] Comment on above: Performed By: #### C BC ####[facility] Otqutqgvfj3258[address] [place], [place] [address]Dr. Farhat Leal Erythrocyte distribution width (RBC) [Ratio] 15.3 % Critically high 11.0-15.0 [facility] Comment on above: Performed By: #### C BC ####[facility] Igtmvpxesh9007[address] [place], [place] [address]Dr. Farhat Leal Hematocrit (Bld) [Volume fraction] 36.6 % Critically low 42.0-54.0 [facility] Comment on above: Performed By: #### C BC ####[facility] Jyzuxfzdbr889[address] [place], [place] [address]Dr. Farhat Leal Hemoglobin (Bld) [Mass/Vol] 12.3 g/dL Critically low 14.0-18.0 [facility] Comment on above: Performed By: #### C BC ####[facility] Mkftagcgmh7408[address] [place], [place] [address]Dr. Farhat Leal IG # 0.02 10e3/ul Normal 0.00-0.03 [facility] Comment on above: Performed By: #### C BC ####[facility] Jadkgrxipx1125[address] [place], [place] [address]Dr. Farhat Leal IG % 0.3 % Normal 0.0-0.5 [facility] Comment on above: Performed By: #### C BC ####[facility] Vmidndxbox3749[address] [place], [place] [address]Dr. Farhat Leal LYMPH # 2.8 103/ul Normal 1.2-3.8 [facility] Comment on above: Performed By: #### C BC ####[facility] Pivzjrzrvs1514 [place] [id number]. Farhat Leal Lymphocytes/100 WBC (Bld) 44.4 % Normal 20.5-60.0 [facility] Comment on above: Performed By: #### C BC ####[facility] Vhmfxonmta4774 [place] [id number]. Farhat Leal MANUAL DIFF REQ NO Normal [facility] Comment on above: Performed By: #### C BC ####[facility] Sqbyltoikg5094 [place] [phone]. Farhat Elvis MCH (RBC) [Entitic mass] 30.4 pg Normal 25.9-34.0 [facility] Comment on above: Performed By: #### C BC ####[facility] Tgwaycbtdx41[address] [place], [place] [address]Dr. Farhat Elvis MCHC (RBC) [Mass/Vol] 33.6 g/dL Normal 29.9-35.2 [facility] Comment on above: Performed By: #### C BC ####[facility] Xriwdttwcw[address] [place], [place] [id number]. Farhat Elvis MCV (RBC) [Entitic vol] 90.4 fL Normal 80.0-94.0 [facility] Comment on above: Performed By: #### C BC ####[facility] Yezqwldert103[address] [place], [place] [address]Dr. Madelynlorri Elvis MONO # 0.7 103/ul Normal 0.3-0.8 [facility] Comment on above: Performed By: #### C BC ####[facility] Xlyqynokat[address] [place], [place] [id number]. Madelynlorri Leal Monocytes/100 WBC (Bld) 10.7 % Normal 1.7-12.0 [facility] Comment on above: Performed By: #### C BC ####[facility] Pyfkftgfrp[address] [place], [place] [id number]. Farhat Leal NEUT # 2.5 103/ul Normal 1.4-6.5 [facility] Comment on above: Performed By: #### C BC ####[facility] Oohmvzjjgj2024 [place] [id number]. Farhat Leal Neutrophils/100 WBC (Bld) 39.3 % Critically low 43.0-75.0 [facility] Comment on above: Performed By: #### C BC ####[facility] Oefreevrsq0167 [place] [id number]. Farhat Leal Platelet mean volume (Bld) [Entitic vol] 10.5 fL Normal 9.5-13.5 [facility] Comment on above: Performed By: #### C BC ####[facility] Xmisoozjlf8143 [place] [address]Dr. Farhat Leal PLT 190 103/ul Normal 150-450 [facility] Comment on above: Performed By: #### C BC ####[facility] Kpkvedyhih3588 [place] [address]Dr. Farhat Leal RBC 4.05 106/ul Critically low 4.70-6.10 [facility] Comment on above: Performed By: #### C BC ####[facility] Pypiewtuib5321 [place] [phone]. Farhat Leal WBC 6.4 103/ul Normal 4.0-11.0 [facility] Comment on above: Performed By: #### C BC ####[facility] Jlnxlmjelk7083 [place] [address]Dr. Farhat Leal PROF 14(COMP METB)on 023 Albumin [Mass/Vol] 2.5 g/dL Critically low 3.4-5.0 [facility] Comment on above: Performed By: #### C MP ####[facility] Xilucsitrx[address] [place] [address]Dr. Farhat Leal Albumin/Globulin [Mass ratio] 0.8 {ratio} Normal [facility] Comment on above: Performed By: #### C MP ####[facility] Fexecbwnzk0025 [place] [address]Dr. Farhat Leal ALP [Catalytic activity/Vol] 61 U/L Normal 46-116 [facility] Comment on above: Performed By: #### C MP ####[facility] Pyzfzovaiw4720 [place] [id number]. Farhat Leal ALT [Catalytic activity/Vol] 16 U/L Normal 16-63 [facility] Comment on above: Performed By: #### C MP ####[facility] Vatltsfqfn5732 [place] [phone]. Farhat Leal Anion gap [Moles/Vol] 12.3 mmol/L Normal [facility] Comment on above: Performed By: #### C MP ####[facility] Wekuxzjmkc5453 [place] [phone]. Farhat Leal AST [Catalytic activity/Vol] 18 U/L Normal 15-37 [facility] Comment on above: Performed By: #### C MP ####[facility] Antzquvgjk87[address] [place], [place] [address]Dr. Farhat Leal Bilirubin [Mass/Vol] 0.5 mg/dL Normal 0.2-1.0 [facility] Comment on above: Performed By: #### C MP ####[facility] Aqifshgbbk3398 [place] [address]Dr. Farhat Leal Calcium [Mass/Vol] 8.6 mg/dL Normal 8.5-10.1 [facility] Comment on above: Performed By: #### C MP ####[facility] Hvcazqjgau47[address] [place], [place] [address]Dr. Farhat Leal Chloride [Moles/Vol] 105 mmol/L Normal 98-107 [facility] Comment on above: Performed By: #### C MP ####[facility] Frahkmnoaa0535 [place] [phone]. Farhat Leal CO2 [Moles/Vol] 28.6 mmol/L Normal 21.0-32.0 [facility] Comment on above: Performed By: #### C MP ####[facility] Unrqptnptj[address] [place], [place] [id number]. Farhat Elvis Creatinine [Mass/Vol] 1.47 mg/dL Critically high 0.70-1.30 [facility] Comment on above: Performed By: #### C MP ####[facility] Kiyqvoginh7246 [place] [phone]. Farhat Leal EGFR-AF [place] 56 mL/min/1.73m2 Critically low >=60 [facility] Comment on above: Performed By: #### C MP ####[facility] Xgdsfwmvpc6892 [place] [phone]. Farhat Leal EGFR-NON AF [place] 46 mL/min/1.73m2 Critically low >=60 [facility] Comment on above: Performed By: #### C MP ####[facility] Xbihpnfrok7238 [place] [address]Dr. Farhat Elvis Globulin (S) [Mass/Vol] 3.3 g/dL Normal [facility] Comment on above: Performed By: #### C MP ####[facility] Lrmkdkfzmt0095 [place] [address]Dr. Farhat Leal Glucose [Mass/Vol] 164 mg/dL Critically high 74-106 [facility] Comment on above: Performed By: #### C MP ####[facility] Jwakauiiks1522 [place] [address]Dr. Farhat Leal Potassium [Moles/Vol] 3.9 mmol/L Normal 3.5-5.1 [facility] Comment on above: Performed By: #### C MP ####[facility] Wcwxlltdrh6428 [place] [address]Dr. Farhat Leal Protein [Mass/Vol] 5.8 g/dL Critically low 6.4-8.2 [facility] Comment on above: Performed By: #### C MP ####[facility] Droxqhqits0262 [place] [address]Dr. Farhat Leal Sodium [Moles/Vol] 142 mmol/L Normal 136-145 [facility] Comment on above: Performed By: #### C MP ####[facility] Mybznxqfil4926 [place] [phone]. Farhat Elvis Urea nitrogen [Mass/Vol] 53.0 mg/dL Critically high 7.0-18.0 [facility] Comment on above: Performed By: #### C MP ####[facility] Hhfsmdqdnt4393 [place] [address]Dr. Farhat Leal Urea nitrogen/Creatinine [Mass ratio] 36.1 mg/mg Normal [facility] Comment on above: Performed By: #### C MP ####[facility] Mmyhaebtmt7143 [place] [address]Dr. Farhat Leal PROTIMEon 05-29-2022 INR Coag (PPP) [Relative time] 2.41 {INR} Normal [facility] Comment on above: Performed By: #### P T ####[facility] Rcscqqgdfv[address] [place], [place] [address]Dr. Farhat Leal INR GUIDELINES SEE BELOW Normal [facility] Comment on above: Result Comment: MALINA RED INR: 2.0 - 3.0 CONDITIONS NOT LISTED BELOW 2.5 - 3.5 FOR PROSTHETIC HEART VALVE REPLACEMENT 2.5 - 3.5 RECURRENT THROMBOSIS Performed By: #### P T ####[facility] Iparfsqxoj0075[address] [place], [place] [address]Dr. Farhat Leal PT Coag (PPP) [Time] 24.3 s Critically high 9.0-11.6 [facility] Comment on above: Performed By: #### P T ####[facility] Qlmzvqqppv8823[address] [place], [place] [address]Dr. Farhat Leal FK506 (TACROLIMUS) WHOLE BLO ODon 05-25-2022 Tacrolimus (FK506), Blood 5.1 ng/mL Normal 2.0-20.0 [facility] Comment on above: Result Comment: Trou gh (immediately following transplant) 15.0 . Trough (steady state, 2 weeks or more after transplant): 3.0 - 8.0 . Performed by LC-MS/MS technology. Performed By: #### F K506T ####[facility] Lcxzwlvwmw467[address] [place], [place] [address]Dr. Farhat Leal CBC AUTO DIFFon 05-22-2022 BASO # 0.0 103/ul Normal 0.0-0.1 [facility] Comment on above: Performed By: #### C BC ####[facility] Yirmoprdsf7638 [place] [address]Dr. Farhat Leal Basophils/100 WBC (Bld) 0.5 % Normal 0.2-2.0 [facility] Comment on above: Performed By: #### C BC ####[facility] Vavlsiivmo0976 [place] [address]Dr. Farhat Leal EO # 0.2 103/ul Normal 0.0-0.7 [facility] Comment on above: Performed By: #### C BC ####[facility] Jjrjkyyhrg9[address] [place], [place] [address]Dr. Farhat Leal Eosinophils/100 WBC (Bld) 4.0 % Normal 0.9-7.0 [facility] Comment on above: Performed By: #### C BC ####[facility] Dufeoybraa60[address] [place], [place] [address]Dr. Farhat Leal Erythrocyte distribution width (RBC) [Ratio] 15.5 % Critically high 11.0-15.0 [facility] Comment on above: Performed By: #### C BC ####[facility] Gfptxuwzlk01[address] [place], [place] [address]Dr. Farhat Leal Hematocrit (Bld) [Volume fraction] 34.1 % Critically low 42.0-54.0 [facility] Comment on above: Performed By: #### C BC ####[facility] Qvbaezxtfz[address] [place], [place] [address]Dr. Farhat Leal Hemoglobin (Bld) [Mass/Vol] 11.3 g/dL Critically low 14.0-18.0 [facility] Comment on above: Performed By: #### C BC ####[facility] Iixjkskcag68[address] [place], [place] [address]Dr. Farhat Leal IG # 0.03 10e3/ul Normal 0.00-0.03 [facility] Comment on above: Performed By: #### C BC ####[facility] Rfedjrecmb[address] [place], [place] [address]Dr. Farhat Leal IG % 0.5 % Normal 0.0-0.5 [facility] Comment on above: Performed By: #### C BC ####[facility] Kpvecogetq4061 [place] [id number]. Farhat Leal LYMPH # 2.1 103/ul Normal 1.2-3.8 [facility] Comment on above: Performed By: #### C BC ####[facility] Nfolyoiitv2030 [place] [id number]. Farhat Leal Lymphocytes/100 WBC (Bld) 34.6 % Normal 20.5-60.0 [facility] Comment on above: Performed By: #### C BC ####[facility] Oohzdvlvpp1850 [place] [id number]. Farhat Elvis MANUAL DIFF REQ NO Normal [facility] Comment on above: Performed By: #### C BC ####[facility] Cwuvbsvgla0386 [place] [id number]. Farhat Elvis MCH (RBC) [Entitic mass] 30.3 pg Normal 25.9-34.0 [facility] Comment on above: Performed By: #### C BC ####[facility] Jzdnznvzmg2602 [place] [id number]. Farhat Leal MCHC (RBC) [Mass/Vol] 33.1 g/dL Normal 29.9-35.2 [facility] Comment on above: Performed By: #### C BC ####[facility] Mzpbkcwqeh4926 [place] [id number]. Farhat Leal MCV (RBC) [Entitic vol] 91.4 fL Normal 80.0-94.0 [facility] Comment on above: Performed By: #### C BC ####[facility] Mglmmdloyz3714 [place] [id number]. Farhat Elvis MONO # 0.7 103/ul Normal 0.3-0.8 [facility] Comment on above: Performed By: #### C BC ####[facility] Kfreaicwws0982 [place] [id number]. Farhat Elvis Monocytes/100 WBC (Bld) 11.6 % Normal 1.7-12.0 [facility] Comment on above: Performed By: #### C BC ####[facility] Qbqbmzioov1291 [place] [id number]. Farhat Leal NEUT # 2.9 103/ul Normal 1.4-6.5 [facility] Comment on above: Performed By: #### C BC ####[facility] Yzkzfnjcte8502 [place] [id number]. Farhat Leal Neutrophils/100 WBC (Bld) 48.8 % Normal 43.0-75.0 [facility] Comment on above: Performed By: #### C BC ####[facility] Xveuvzggja8462 [place] [id number]. Farhat Leal Platelet mean volume (Bld) [Entitic vol] 10.9 fL Normal 9.5-13.5 [facility] Comment on above: Performed By: #### C BC ####[facility] Xahmnbxqfg5046 [place] [id number]. Farhat Elvis PLT 186 103/ul Normal 150-450 [facility] Comment on above: Performed By: #### C BC ####[facility] Thvirwwahg2825 [place] [id number]. Farhat Elvis RBC 3.73 106/ul Critically low 4.70-6.10 [facility] Comment on above: Performed By: #### C BC ####[facility] Unvkwjxzcf2120 [place] [id number]. Farhat Leal WBC 6.0 103/ul Normal 4.0-11.0 [facility] Comment on above: Performed By: #### C BC ####[facility] Cozigltate0376 [place] [id number]. Farhat Leal PROF 14(COMP METB)on 023 Albumin [Mass/Vol] 2.7 g/dL Critically low 3.4-5.0 Th [facility] Comment on above: Performed By: #### C MP ####[facility] Asgjphlnmc4535 [place] [id number]. Madelynlorri Elvis Albumin/Globulin [Mass ratio] 0.8 {ratio} Normal [facility] Comment on above: Performed By: #### C MP ####[facility] Rekrpsxzjk0663 [place] [id number]. Farhat Leal ALP [Catalytic activity/Vol] 60 U/L Normal 46-116 [facility] Comment on above: Performed By: #### C MP ####[facility] Qcqrteaozu6636 [place] [address]Dr. Farhat Leal ALT [Catalytic activity/Vol] 17 U/L Normal 16-63 [facility] Comment on above: Performed By: #### C MP ####[facility] Xwgvnsiboq4559[address] [place], [place] [address]Dr. Farhat Leal Anion gap [Moles/Vol] 9.6 mmol/L Normal [facility] Comment on above: Performed By: #### C MP ####[facility] Wmlsuihpys2335[address] [place], [place] [address]Dr. Farhat Leal AST [Catalytic activity/Vol] 14 U/L Critically low 15-37 [facility] Comment on above: Performed By: #### C MP ####[facility] Vcnxqwsiaq8[address] [place], [place] [address]Dr. Farhat Leal Bilirubin [Mass/Vol] 0.5 mg/dL Normal 0.2-1.0 [facility] Comment on above: Performed By: #### C MP ####[facility] Wjfgheeodm506[address] [place], [place] [address]Dr. Farhat Leal Calcium [Mass/Vol] 8.4 mg/dL Critically low 8.5-10.1 [facility] Comment on above: Performed By: #### C MP ####[facility] Ihivkurklx8875 [place] [address]Dr. Farhat Leal Chloride [Moles/Vol] 104 mmol/L Normal 98-107 [facility] Comment on above: Performed By: #### C MP ####[facility] Bxwrwmfdpi277[address] [place], [place] [address]Dr. Farhat Leal CO2 [Moles/Vol] 27.2 mmol/L Normal 21.0-32.0 The [facility] Comment on above: Performed By: #### C MP ####[facility] Tmxgupdafp0238 [place] [address]Dr. Farhat Leal Creatinine [Mass/Vol] 1.24 mg/dL Normal 0.70-1.30 [facility] Comment on above: Performed By: #### C MP ####[facility] Sethrbkmls3431 [place] [address]Dr. Madelynlorri Elvis EGFR-AF [place] >60 Normal >=60 [facility] Comment on above: Performed By: #### C MP ####[facility] Fgirirbivz2373 [place] [address]Dr. Farhat Leal EGFR-NON AF [place] 57 mL/min/1.73m2 Critically low >=60 [facility] Comment on above: Performed By: #### C MP ####[facility] Bdmrazlzsv679[address] [place], [place] [address]Dr. Farhat Leal Globulin (S) [Mass/Vol] 3.3 g/dL Normal [facility] Comment on above: Performed By: #### C MP ####[facility] Kxjslqjzte464[address] [place], [place] [address]Dr. Farhat Leal Glucose [Mass/Vol] 275 mg/dL Critically high 74-106 [facility] Comment on above: Performed By: #### C MP ####[facility] Yfurpexnly797148 [address] [place], [place] [address]Dr. Farhat Leal Potassium [Moles/Vol] 3.8 mmol/L Normal 3.5-5.1 [facility] Comment on above: Performed By: #### C MP ####[facility] Czleurytsm309[address] [place], [place] [address]Dr. Farhat Leal Protein [Mass/Vol] 6.0 g/dL Critically low 6.4-8.2 Th [facility] Comment on above: Performed By: #### C MP ####[facility] Ufbcnfkdvs4650[address] [place], [place] [address]Dr. Farhat Leal Sodium [Moles/Vol] 137 mmol/L Normal 136-145 [facility] Comment on above: Performed By: #### C MP ####[facility] Vwcdnqathh9749[address] [place], [place] [address]Dr. Farhat Leal Urea nitrogen [Mass/Vol] 54.0 mg/dL Critically high 7.0-18.0 [facility] Comment on above: Performed By: #### C MP ####[facility] Qrfqptmpdh0274 [place] [address]Dr. Farhat Leal Urea nitrogen/Creatinine [Mass ratio] 43.5 mg/mg Normal [facility] Comment on above: Performed By: #### C MP ####[facility] Bczfnnxcoo5848[address] [place], [place] [address]Dr. Farhat Leal PROTIMEon 05-22-2022 INR Coag (PPP) [Relative time] 2.27 {INR} Normal [facility] Comment on above: Performed By: #### P T ####[facility] Jrvtpzyphb6834[address] [place], [place] [address]DrSkylar Leal INR GUIDELINES SEE BELOW Normal [facility] Comment on above: Result Comment: MALINA RED INR: 2.0 - 3.0 CONDITIONS NOT LISTED BELOW 2.5 - 3.5 FOR PROSTHETIC HEART VALVE REPLACEMENT 2.5 - 3.5 RECURRENT THROMBOSIS Performed By: #### P T ####[facility] Yhycvugoxm[address] [place] [address]. Farhat Leal PT Coag (PPP) [Time] 23.0 s Critically high 9.0-11.6 [facility] Comment on above: Performed By: #### P T ####[facility] Ligmpoouus[address] [place] [address]. Farhat Leal FK506 (TACROLIMUS) WHOLE BLO ODon 05-19-2022 Tacrolimus (FK506), Blood 7.8 ng/mL Normal 2.0-20.0 [facility] Comment on above: Result Comment: Trou gh (immediately following transplant) 15.0 . Trough (steady state, 2 weeks or more after transplant): 3.0 - 8.0 . Performed by LC-MS/MS technology. Performed By: #### F K506T ####[facility] Kyaiddknkp[address] [place], [place] [address]DrSkylar Leal CBC AUTO DIFFon 05-15-2022 BASO # 0.0 103/ul Normal 0.0-0.1 [facility] Comment on above: Performed By: #### C BC ####[facility] Wzaqffpogb46[address] [place], [place] [address]Dr. Farhat Leal Basophils/100 WBC (Bld) 0.4 % Normal 0.2-2.0 [facility] Comment on above: Performed By: #### C BC ####[facility] Kcqytoevih387[address] [place], [place] [address]Dr. Farhat Leal EO # 0.2 103/ul Normal 0.0-0.7 [facility] Comment on above: Performed By: #### C BC ####[facility] Uxzcolyjim917[address] [place], [place] [address]Dr. Farhat Leal Eosinophils/100 WBC (Bld) 3.0 % Normal 0.9-7.0 [facility] Comment on above: Performed By: #### C BC ####[facility] Cedhuegaxc44[address] [place], [place] [address]Dr. Farhat Leal Erythrocyte distribution width (RBC) [Ratio] 15.7 % Critically high 11.0-15.0 [facility] Comment on above: Performed By: #### C BC ####[facility] Rgpezqormd3312[address] [place], [place] [address]Dr. Farhat Leal Hematocrit (Bld) [Volume fraction] 36.8 % Critically low 42.0-54.0 [facility] Comment on above: Performed By: #### C BC ####[facility] Jfndhayjwn422348 [address] [place], [place] [address]Dr. Farhat Leal Hemoglobin (Bld) [Mass/Vol] 12.4 g/dL Critically low 14.0-18.0 [facility] Comment on above: Performed By: #### C BC ####[facility] Ifbdzbfkxz979[address] [place], [place] [address]Dr. Farhat Leal IG # 0.01 10e3/ul Normal 0.00-0.03 [facility] Comment on above: Performed By: #### C BC ####[facility] Dlxgangjes710[address] [place], [place] [address]DrSkylar Leal IG % 0.1 % Normal 0.0-0.5 [facility] Comment on above: Performed By: #### C BC ####[facility] Otpntqikng5766 [place] [address]DrSkylar Madelynlorri Leal LYMPH # 2.4 103/ul Normal 1.2-3.8 [facility] Comment on above: Performed By: #### C BC ####[facility] Mlvyefisrm7926 [place] [address]DrSkylar Leal Lymphocytes/100 WBC (Bld) 35.6 % Normal 20.5-60.0 [facility] Comment on above: Performed By: #### C BC ####[facility] Bqozsfociw958[address] [place], [place] [address]DrSkylar Leal MANUAL DIFF REQ NO Normal [facility] Comment on above: Performed By: #### C BC ####[facility] Bfntliokcl1132[address] [place], [place] [address]DrSkylar Leal MCH (RBC) [Entitic mass] 30.1 pg Normal 25.9-34.0 [facility] Comment on above: Performed By: #### C BC ####[facility] Swudyvcnxk0075[address] [place], [place] [address]Dr. Farhat Elvis MCHC (RBC) [Mass/Vol] 33.7 g/dL Normal 29.9-35.2 [facility] Comment on above: Performed By: #### C BC ####[facility] Kjaijshxuj668[address] [place], [place] [address]DrSkylar Leal MCV (RBC) [Entitic vol] 89.3 fL Normal 80.0-94.0 [facility] Comment on above: Performed By: #### C BC ####[facility] Jzgkyklfzy528[address] [place], [place] [address]DrSkylar Leal MONO # 0.7 103/ul Normal 0.3-0.8 [facility] Comment on above: Performed By: #### C BC ####[facility] Oizaigxbcr[address] [place], [place] [id number] Leal Monocytes/100 WBC (Bld) 10.8 % Normal 1.7-12.0 [facility] Comment on above: Performed By: #### C BC ####[facility] Qqvcidwqcb9121 [place] [address]Dr. Farhat Leal NEUT # 3.4 103/ul Normal 1.4-6.5 [facility] Comment on above: Performed By: #### C BC ####[facility] Ammhfvomux3262 [place] [address]DrSkylar Leal Neutrophils/100 WBC (Bld) 50.1 % Normal 43.0-75.0 [facility] Comment on above: Performed By: #### C BC ####[facility] Magmdxydvb0111 [place] [address]Dr. Farhat Leal Platelet mean volume (Bld) [Entitic vol] 10.2 fL Normal 9.5-13.5 [facility] Comment on above: Performed By: #### C BC ####[facility] Dhmmwpkjpu770648 [address] [place], [place] [address]Dr. Farhat Leal PLT 190 103/ul Normal 150-450 [facility] Comment on above: Performed By: #### C BC ####[facility] Rghxjoibin8[address] [place], [place] [address]Dr. Farhat Leal RBC 4.12 106/ul Critically low 4.70-6.10 [facility] Comment on above: Performed By: #### C BC ####[facility] Pikwzygmzz184248 [address] [place], [place] [address]Dr. Farhat Leal WBC 6.8 103/ul Normal 4.0-11.0 [facility] Comment on above: Performed By: #### C BC ####[facility] Ftwkdvdpjc5192 [place] [address]DrSkylar Leal PROF 14(COMP METB)on 023 Albumin [Mass/Vol] 2.8 g/dL Critically low 3.4-5.0 Th [facility] Comment on above: Performed By: #### C MP ####[facility] Oyjorvbvkf1624[address] [place], [place] [address]DrSkylar Leal Albumin/Globulin [Mass ratio] 0.9 {ratio} Normal [facility] Comment on above: Performed By: #### C MP ####[facility] Bakemjrusl3412 [place] [address]Dr. Farhat Elvis ALP [Catalytic activity/Vol] 66 U/L Normal 46-116 [facility] Comment on above: Performed By: #### C MP ####[facility] Pxnitamujq0414 [place] [address]Dr. Madelynlorri Leal ALT [Catalytic activity/Vol] 15 U/L Critically low 16-63 [facility] Comment on above: Performed By: #### C MP ####[facility] Dnbwfegtvq05[address] [place], [place] [address]Dr. Farhat Leal Anion gap [Moles/Vol] 11.1 mmol/L Normal [facility] Comment on above: Performed By: #### C MP ####[facility] Inulzlwvqy7309[address] [place], [place] [address]Dr. Farhat Leal AST [Catalytic activity/Vol] 14 U/L Critically low 15-37 [facility] Comment on above: Performed By: #### C MP ####[facility] Ohpukmxqtp6098[address] [place], [place] [address]Dr. Farhat Leal Bilirubin [Mass/Vol] 0.8 mg/dL Normal 0.2-1.0 [facility] Comment on above: Performed By: #### C MP ####[facility] Qlfckyrhcl454148 [address] [place], [place] [address]Dr. Farhat Leal Calcium [Mass/Vol] 8.9 mg/dL Normal 8.5-10.1 [facility] Comment on above: Performed By: #### C MP ####[facility] Yaqavfboex4315[address] [place], [place] [address]Dr. Farhat Leal Chloride [Moles/Vol] 101 mmol/L Normal 98-107 [facility] Comment on above: Performed By: #### C MP ####[facility] Nnxghstzfz177348 [address] [place], [place] [address]Dr. Farhat Leal CO2 [Moles/Vol] 28.2 mmol/L Normal 21.0-32.0 [facility] Comment on above: Performed By: #### C MP ####[facility] Svyltfyctq4362 [place] [id number]. Farhat Leal Creatinine [Mass/Vol] 1.23 mg/dL Normal 0.70-1.30 [facility] Comment on above: Performed By: #### C MP ####[facility] Xakfzzpcxl8544 [place] [id number]. Farhat Elvis EGFR-AF [place] >60 Normal >=60 [facility] Comment on above: Performed By: #### C MP ####[facility] Xghlqbfdww9363 [place] [id number]. Farhat Elvis EGFR-NON AF [place] 57 mL/min/1.73m2 Critically low >=60 [facility] Comment on above: Performed By: #### C MP ####[facility] Qtlgsjsupv7457 [place] [id number]. Farhat Elvis Globulin (S) [Mass/Vol] 3.2 g/dL Normal [facility] Comment on above: Performed By: #### C MP ####[facility] Rsumuskaku8773 [place] [id number]. Farhat Elvis Glucose [Mass/Vol] 333 mg/dL Critically high 74-106 [facility] Comment on above: Performed By: #### C MP ####[facility] Scclzgmvzl4510 [place] [id number]. Farhat Elvis Potassium [Moles/Vol] 4.3 mmol/L Normal 3.5-5.1 [facility] Comment on above: Performed By: #### C MP ####[facility] Tzhcmcfthl4927 [place] [id number]. Farhat Elvsi Protein [Mass/Vol] 6.0 g/dL Critically low 6.4-8.2 Th [facility] Comment on above: Performed By: #### C MP ####[facility] Lcljirqmlw5309 [place] [phone]. Farhat Elvis Sodium [Moles/Vol] 136 mmol/L Normal 136-145 [facility] Comment on above: Performed By: #### C MP ####[facility] Cigxuvbgry6249 [place] [address]Dr. Farhat Leal Urea nitrogen [Mass/Vol] 58.0 mg/dL Critically high 7.0-18.0 [facility] Comment on above: Performed By: #### C MP ####[facility] Ayoyvywqpd389[address] [place], [place] [address]Dr. Farhat Leal Urea nitrogen/Creatinine [Mass ratio] 47.2 mg/mg Normal [facility] Comment on above: Performed By: #### C MP ####[facility] Voaxearjos917[address] [place], [place] [address]Dr. Farhat Leal PROTIMEon 05-13-2022 INR Coag (PPP) [Relative time] 3.51 {INR} Normal [facility] Comment on above: Performed By: #### P T ####[facility] Dtmhkutcgm805[address] [place], [place] [address]Dr. Farhat Leal INR GUIDELINES SEE BELOW Normal [facility] Comment on above: Result Comment: MALINA RED INR: 2.0 - 3.0 CONDITIONS NOT LISTED BELOW 2.5 - 3.5 FOR PROSTHETIC HEART VALVE REPLACEMENT 2.5 - 3.5 RECURRENT THROMBOSIS Performed By: #### P T ####[facility] Vlsbwalnfa289[address] [place], [place] [address]Dr. Farhat Leal PT Coag (PPP) [Time] 34.7 s Critically high 9.0-11.6 [facility] Comment on above: Performed By: #### P T ####[facility] Vckbddssrz0979[address] [place], [place] [address]Dr. Farhat Leal FK506 (TACROLIMUS) WHOLE BLO ODon 05-11-2022 Tacrolimus (FK506), Blood 14.4 ng/mL Normal 2.0-20.0 [facility] Comment on above: Result Comment: Trou gh (immediately following transplant) 15.0 . Trough (steady state, 2 weeks or more after transplant): 3.0 - 8.0 . Performed by LC-MS/MS technology. Performed By: #### F K506T ####[facility] Boxdrwxgeb0973 [place] [address]Dr. Farhat Leal CBC AUTO DIFFon 05-08-2022 BASO # 0.0 103/ul Normal 0.0-0.1 [facility] Comment on above: Performed By: #### C BC ####[facility] Eokamndwpl50[address] [place], [place] [address]Dr. Farhat Elvis Basophils/100 WBC (Bld) 0.5 % Normal 0.2-2.0 [facility] Comment on above: Performed By: #### C BC ####[facility] Safisgggpv64264[address] [place], [place] [address]Dr. Farhat Leal EO # 0.2 103/ul Normal 0.0-0.7 [facility] Comment on above: Performed By: #### C BC ####[facility] Kamkdkzdfg2437[address] [place], [place] [address]Dr. Madelynlorri Leal Eosinophils/100 WBC (Bld) 2.9 % Normal 0.9-7.0 [facility] Comment on above: Performed By: #### C BC ####[facility] Vjhentfrzs39[address] [place], [place] [address]Dr. Farhat Leal Erythrocyte distribution width (RBC) [Ratio] 16.0 % Critically high 11.0-15.0 [facility] Comment on above: Performed By: #### C BC ####[facility] Jnhfgjpkua708[address] [place], [place] [address]Dr. Farhat Leal Hematocrit (Bld) [Volume fraction] 35.7 % Critically low 42.0-54.0 [facility] Comment on above: Performed By: #### C BC ####[facility] Yoagqxjklj3865[address] [place], [place] [address]Dr. Farhat Leal Hemoglobin (Bld) [Mass/Vol] 11.9 g/dL Critically low 14.0-18.0 [facility] Comment on above: Performed By: #### C BC ####[facility] Eciaffthpv337[address] [place], [place] [address]Dr. Farhat Leal IG # 0.03 10e3/ul Normal 0.00-0.03 [facility] Comment on above: Performed By: #### C BC ####[facility] Gqrqvkkabm5413 [place] [id number]. Madelynlorri Leal IG % 0.5 % Normal 0.0-0.5 [facility] Comment on above: Performed By: #### C BC ####[facility] Csgkthwvat3320 [place] [id number]. Farhat Elvis LYMPH # 2.4 103/ul Normal 1.2-3.8 [facility] Comment on above: Performed By: #### C BC ####[facility] Bqthgrdnrf9028 [place] [id number]. Madelynlorri Leal Lymphocytes/100 WBC (Bld) 37.8 % Normal 20.5-60.0 [facility] Comment on above: Performed By: #### C BC ####[facility] Yqzkguiqrn3935 [place] [address]Dr. Farhat Leal MANUAL DIFF REQ NO Normal [facility] Comment on above: Performed By: #### C BC ####[facility] Hkzricreov7539 [place] [id number]. Farhat Leal MCH (RBC) [Entitic mass] 30.4 pg Normal 25.9-34.0 [facility] Comment on above: Performed By: #### C BC ####[facility] Wfoiihwxur3363 [place] [phone]. Farhat Leal MCHC (RBC) [Mass/Vol] 33.3 g/dL Normal 29.9-35.2 [facility] Comment on above: Performed By: #### C BC ####[facility] Xtppesgwao7080 [place] [id number]. Farhat Leal MCV (RBC) [Entitic vol] 91.1 fL Normal 80.0-94.0 [facility] Comment on above: Performed By: #### C BC ####[facility] Laoilhfkmv6393 [place] [id number]. Farhat Leal MONO # 0.7 103/ul Normal 0.3-0.8 [facility] Comment on above: Performed By: #### C BC ####[facility] Kzyrqbqnnm2188 [place] [id number]. Farhat Leal Monocytes/100 WBC (Bld) 11.1 % Normal 1.7-12.0 [facility] Comment on above: Performed By: #### C BC ####[facility] Osyzowhrlb8734 [place] [id number]. Farhat Leal NEUT # 2.9 103/ul Normal 1.4-6.5 [facility] Comment on above: Performed By: #### C BC ####[facility] Vzqwxxbelf7107 [place] [id number]. Farhat Leal Neutrophils/100 WBC (Bld) 47.2 % Normal 43.0-75.0 [facility] Comment on above: Performed By: #### C BC ####[facility] Pgcmhxqrvv9344 [place] [address]Dr. Farhat Leal Platelet mean volume (Bld) [Entitic vol] 11.0 fL Normal 9.5-13.5 [facility] Comment on above: Performed By: #### C BC ####[facility] Pfelpluisn4537 [place] [id number]. Farhat Leal PLT 191 103/ul Normal 150-450 [facility] Comment on above: Performed By: #### C BC ####[facility] Uyqbmgador4136 [place] [id number]. Farhat Leal RBC 3.92 106/ul Critically low 4.70-6.10 [facility] Comment on above: Performed By: #### C BC ####[facility] Paybuhxwmk[address] [place], [place] [id number]. Farhat Leal WBC 6.2 103/ul Normal 4.0-11.0 [facility] Comment on above: Performed By: #### C BC ####[facility] Mehlhrgnma1420 [place] [address]Dr. Farhat Leal MAGNESIUMon 05-08-2022 Magnesium [Mass/Vol] 1.9 mg/dL Normal 1.8-2.4 [facility] Comment on above: Performed By: #### P HOS, MG ####[facility] Ywyrdbkwez7237 [place] [address]Dr. Farhat Leal PHOSPHORUSon 05-08-2022 Phosphate [Mass/Vol] 4.5 mg/dL Normal 2.6-4.7 [facility] Comment on above: Performed By: #### P HOS, MG ####[facility] Fvzynwkttj2462 [place] [address]Dr. Farhat Leal PROF 14(COMP METB)on 023 Albumin [Mass/Vol] 2.9 g/dL Critically low 3.4-5.0 [facility] Comment on above: Performed By: #### C MP ####[facility] Wyytbfqaal[address] [place], [place] [address]Dr. Farhat Leal Albumin/Globulin [Mass ratio] 0.9 {ratio} Normal [facility] Comment on above: Performed By: #### C MP ####[facility] Almsrmaesv[address] [place], [place] [address]Dr. Farhat Leal ALP [Catalytic activity/Vol] 70 U/L Normal 46-116 [facility] Comment on above: Performed By: #### C MP ####[facility] [facility] [address] [place], [place] [address]Dr. Farhat Leal ALT [Catalytic activity/Vol] 13 U/L Critically low 16-63 [facility] Comment on above: Performed By: #### C MP ####[facility] B[address]wis[address] [place] [address]Dr. Farhat Leal Anion gap [Moles/Vol] 14.6 mmol/L Normal [facility] Comment on above: Performed By: #### C MP ####[facility] Ot[address]eqyhk[address] [place] [address]Dr. Farhat Leal AST [Catalytic activity/Vol] 17 U/L Normal 15-37 [facility] Comment on above: Performed By: #### C MP ####[facility] [address]fz[address] [place] [address]Dr. Farhat Leal Bilirubin [Mass/Vol] 0.8 mg/dL Normal 0.2-1.0 [facility] Comment on above: Performed By: #### C MP ####[facility] M[address]pxovzdt[address] [place] [address]Dr. Farhat Leal Calcium [Mass/Vol] 8.9 mg/dL Normal 8.5-10.1 [facility] Comment on above: Performed By: #### C MP ####[facility] [address]xkzigxrxa[address] [place] [address]Dr. Farhat Leal Chloride [Moles/Vol] 102 mmol/L Normal 98-107 [facility] Comment on above: Performed By: #### C MP ####[facility] Cipxmzrbup[address] [place] [address]Dr. Farhat Leal CO2 [Moles/Vol] 22.9 mmol/L Normal 21.0-32.0 [facility] Comment on above: Performed By: #### C MP ####[facility] Kvfbhwkuvs[address] [place] [address]Dr. Farhat Leal Creatinine [Mass/Vol] 1.20 mg/dL Normal 0.70-1.30 [facility] Comment on above: Performed By: #### C MP ####[facility] Olfoykcsjn[address] [place] [address]Dr. Farhat Leal EGFR-AF [place] >60 Normal >=60 [facility] Comment on above: Performed By: #### C MP ####[facility] [address]myxfuxt[address] [place] [address]Dr. Farhat Elvis EGFR-NON AF [place] 59 mL/min/1.73m2 Critically low >=60 [facility] Comment on above: Performed By: #### C MP ####[facility] Aifefahhtr5[address] [place] [id number]. Farhat Elvis Globulin (S) [Mass/Vol] 3.1 g/dL Normal [facility] Comment on above: Performed By: #### C MP ####[facility] Uthfzwwlee[address] [place] [address]Dr. Madelynlorri Elvis Glucose [Mass/Vol] 447 mg/dL Critically high 74-106 [facility] Comment on above: Performed By: #### C MP ####[facility] Vhzhnllowo5569 [place] [id number]. Farhat Leal Potassium [Moles/Vol] 4.5 mmol/L Normal 3.5-5.1 [facility] Comment on above: Performed By: #### C MP ####[facility] Foagridbbn4684 [place] [address]Dr. Farhat Elvis Protein [Mass/Vol] 6.0 g/dL Critically low 6.4-8.2 Th [facility] Comment on above: Performed By: #### C MP ####[facility] Isbxgvehll[address] [place] [address]Dr. Farhat Elvis Sodium [Moles/Vol] 135 mmol/L Critically low 136-145 Th [facility] Comment on above: Performed By: #### C MP ####[facility] Kwpzhpebwx26[address] [place], [place] [address]Dr. Madelynlorri Leal Urea nitrogen [Mass/Vol] 52.0 mg/dL Critically high 7.0-18.0 [facility] Comment on above: Performed By: #### C MP ####[facility] Mmevmxncfn624[address] [place], [place] [address]Dr. Farhat Elvis Urea nitrogen/Creatinine [Mass ratio] 43.3 mg/mg Normal [facility] Comment on above: Performed By: #### C MP ####[facility] Lqaokvxpiv03[address] [place], [place] [address]Dr. Farhat Leal PROTIMEon 05-06-2022 INR Coag (PPP) [Relative time] 2.25 {INR} Normal [facility] Comment on above: Performed By: #### P T ####[facility] [address]xhmcvzqk[address] [place], [place] [address]Dr. Farhat Leal INR GUIDELINES SEE BELOW Normal [facility] Comment on above: Result Comment: MALINA RED INR: 2.0 - 3.0 CONDITIONS NOT LISTED BELOW 2.5 - 3.5 FOR PROSTHETIC HEART VALVE REPLACEMENT 2.5 - 3.5 RECURRENT THROMBOSIS Performed By: #### P T ####[facility] Wvyfcfdgaz74[address] [place], [place] [address]Dr. Madelynlorri Leal PT Coag (PPP) [Time] 22.8 s Critically high 9.0-11.6 [facility] Comment on above: Performed By: #### P T ####[facility] Amgfypcxae139[address] [place], [place] [address]Dr. Farhat Elvis FK506 (TACROLIMUS) WHOLE BLO ODon 05-04-2022 Tacrolimus (FK506), Blood 10.4 ng/mL Normal 2.0-20.0 [facility] Comment on above: Result Comment: Trou gh (immediately following transplant) 15.0 . Trough (steady state, 2 weeks or more after transplant): 3.0 - 8.0 . Performed by LC-MS/MS technology. Performed By: #### F K506T ####[facility] Qpsipwhxvu038[address] [place], [place] [address]Dr. Farhat Elvis CBC AUTO DIFFon 05-01-2022 BASO # 0.1 103/ul Normal 0.0-0.1 [facility] Comment on above: Performed By: #### C BC ####[facility] Yejbgbhguf5[address] [place], [place] [address]Dr. Madelynlorri Leal Basophils/100 WBC (Bld) 0.7 % Normal 0.2-2.0 [facility] Comment on above: Performed By: #### C BC ####[facility] Vovqygdvhi[address] [place], [place] [address]Dr. Farhat Leal EO # 0.2 103/ul Normal 0.0-0.7 [facility] Comment on above: Performed By: #### C BC ####[facility] Vzibvehpii5850[address] [place], [place] [address]Dr. Farhat Leal Eosinophils/100 WBC (Bld) 3.2 % Normal 0.9-7.0 [facility] Comment on above: Performed By: #### C BC ####[facility] Jylyclvvyq15[address] [place], [place] [address]Dr. Farhat Leal Erythrocyte distribution width (RBC) [Ratio] 16.4 % Critically high 11.0-15.0 [facility] Comment on above: Performed By: #### C BC ####[facility] Kgbbqqfgmx4305 [place] [address]Dr. Farhat Leal Hematocrit (Bld) [Volume fraction] 35.1 % Critically low 42.0-54.0 [facility] Comment on above: Performed By: #### C BC ####[facility] Tagyquuute[address] [place] [address]Dr. Farhat Leal Hemoglobin (Bld) [Mass/Vol] 11.6 g/dL Critically low 14.0-18.0 [facility] Comment on above: Performed By: #### C BC ####[facility] Ohmxigyjzk08[address] [place], [place] [address]Dr. Madelynlorri Leal IG # 0.03 10e3/ul Normal 0.00-0.03 [facility] Comment on above: Performed By: #### C BC ####[facility] Kikycbwofq[address] [place], [place] [address]Dr. Farhat Leal IG % 0.4 % Normal 0.0-0.5 [facility] Comment on above: Performed By: #### C BC ####[facility] Twagbemjpp0645[address] [place], [place] [address]Dr. Madelynlorri Leal LYMPH # 2.4 103/ul Normal 1.2-3.8 [facility] Comment on above: Performed By: #### C BC ####[facility] Dmmuqoerbk7[address] [place], [place] [address]Dr. Farhat Leal Lymphocytes/100 WBC (Bld) 35.1 % Normal 20.5-60.0 [facility] Comment on above: Performed By: #### C BC ####[facility] Szvntawoci0311[address] [place], [place] [address]Dr. Farhat Leal MANUAL DIFF REQ NO Normal [facility] Comment on above: Performed By: #### C BC ####[facility] Hrmkdkaxuz725[address] [place], [place] [address]Dr. Farhat Leal MCH (RBC) [Entitic mass] 29.4 pg Normal 25.9-34.0 [facility] Comment on above: Performed By: #### C BC ####[facility] Uytxvbvojw5532 [place] [id number]. Farhat Elvis MCHC (RBC) [Mass/Vol] 33.0 g/dL Normal 29.9-35.2 [facility] Comment on above: Performed By: #### C BC ####[facility] Gkxnloaqtx1661 [place] [phone]. Farhat Leal MCV (RBC) [Entitic vol] 88.9 fL Normal 80.0-94.0 [facility] Comment on above: Performed By: #### C BC ####[facility] Xlexkikiwo6524 [place] [id number]. Farhat Leal MONO # 0.7 103/ul Normal 0.3-0.8 [facility] Comment on above: Performed By: #### C BC ####[facility] Fneiytgqwj[address] [place], [place] [address]Dr. Farhat Leal Monocytes/100 WBC (Bld) 9.6 % Normal 1.7-12.0 [facility] Comment on above: Performed By: #### C BC ####[facility] Gubmpznbmq[address] [place], [place] [address]Dr. Farhat Leal NEUT # 3.5 103/ul Normal 1.4-6.5 [facility] Comment on above: Performed By: #### C BC ####[facility] Uursgbodkp6069[address] [place], [place] [address]Dr. Farhat Leal Neutrophils/100 WBC (Bld) 51.0 % Normal 43.0-75.0 [facility] Comment on above: Performed By: #### C BC ####[facility] Oenguowccx497[address] [place], [place] [address]Dr. Farhat Leal Platelet mean volume (Bld) [Entitic vol] 10.3 fL Normal 9.5-13.5 [facility] Comment on above: Performed By: #### C BC ####[facility] S[address]vvyqi[address] [place], [place] [id number]. Farhat Leal PLT 184 103/ul Normal 150-450 [facility] Comment on above: Performed By: #### C BC ####[facility] Yhqgryxbfh33[address] [place] [id number]. Farhat Leal RBC 3.95 106/ul Critically low 4.70-6.10 [facility] Comment on above: Performed By: #### C BC ####[facility] Rhnwasddqz4096 [place] [id number]. Farhat Leal WBC 7.0 103/ul Normal 4.0-11.0 [facility] Comment on above: Performed By: #### C BC ####[facility] Ccmutbecjr6[address] [place] [address]Dr. Farhat Leal PROF 14(COMP METB)on 023 Albumin [Mass/Vol] 2.6 g/dL Critically low 3.4-5.0 [facility] Comment on above: Performed By: #### C MP ####[facility] Nuzycrywgm7[address] [place] [address]Dr. Farhat Leal Albumin/Globulin [Mass ratio] 0.9 {ratio} Normal [facility] Comment on above: Performed By: #### C MP ####[facility] Eqrhrkqdrm20[address] [place] [address]Dr. Farhat Leal ALP [Catalytic activity/Vol] 53 U/L Normal 46-116 [facility] Comment on above: Performed By: #### C MP ####[facility] Qetttgfluf0658 [place] [address]Dr. Farhat Leal ALT [Catalytic activity/Vol] 17 U/L Normal 16-63 [facility] Comment on above: Performed By: #### C MP ####[facility] Fufixabfrf[address] [place] [address]Dr. Farhat Leal Anion gap [Moles/Vol] 10.0 mmol/L Normal [facility] Comment on above: Performed By: #### C MP ####[facility] Yvwkqainhd6776 [place] [address]Dr. Farhat Leal AST [Catalytic activity/Vol] 19 U/L Normal 15-37 [facility] Comment on above: Performed By: #### C MP ####[facility] Nhplefaadd2615 [place] [phone]. Farhat Leal Bilirubin [Mass/Vol] 0.5 mg/dL Normal 0.2-1.0 [facility] Comment on above: Performed By: #### C MP ####[facility] Toymdviifw1844 [place] [id number]. Farhat Leal Calcium [Mass/Vol] 8.4 mg/dL Critically low 8.5-10.1 Th [facility] Comment on above: Performed By: #### C MP ####[facility] Bjvtlenche9712 [place] [phone]. Farhat Leal Chloride [Moles/Vol] 108 mmol/L Critically high 98-107 [facility] Comment on above: Performed By: #### C MP ####[facility] Mwuzuvghah96[address] [place], [place] [address]Dr. Farhat Leal CO2 [Moles/Vol] 26.9 mmol/L Normal 21.0-32.0 [facility] Comment on above: Performed By: #### C MP ####[facility] Bbaqvmpihu377[address] [place], [place] [address]Dr. Farhat Leal Creatinine [Mass/Vol] 1.20 mg/dL Normal 0.70-1.30 [facility] Comment on above: Performed By: #### C MP ####[facility] Ciosddamby[address] [place], [place] [address]Dr. Farhat Elvis EGFR-AF [place] >60 Normal >=60 [facility] Comment on above: Performed By: #### C MP ####[facility] Mrneuicftl50[address] [place], [place] [address]Dr. Farhat Elvis EGFR-NON AF [place] 59 mL/min/1.73m2 Critically low >=60 [facility] Comment on above: Performed By: #### C MP ####[facility] Arjzaxiwzc2507[address] [place], [place] [address]Dr. Farhat Leal Globulin (S) [Mass/Vol] 3.0 g/dL Normal [facility] Comment on above: Performed By: #### C MP ####[facility] Bpjukxrtuh023[address] [place] [address]Dr. Farhat Leal Glucose [Mass/Vol] 213 mg/dL Critically high 74-106 [facility] Comment on above: Performed By: #### C MP ####[facility] Lkaoxudhzm0962 [place] [address]Dr. Farhat Leal Potassium [Moles/Vol] 3.9 mmol/L Normal 3.5-5.1 [facility] Comment on above: Performed By: #### C MP ####[facility] Umklclkqpf9555 [place] [address]Dr. Farhat Leal Protein [Mass/Vol] 5.6 g/dL Critically low 6.4-8.2 Th [facility] Comment on above: Performed By: #### C MP ####[facility] Vvfvsyojqm24[address] [place], [place] [address]Dr. Farhat Leal Sodium [Moles/Vol] 141 mmol/L Normal 136-145 [facility] Comment on above: Performed By: #### C MP ####[facility] Zahpeidsgg1213[address] [place], [place] [address]Dr. Farhat Leal Urea nitrogen [Mass/Vol] 61.0 mg/dL Critically high 7.0-18.0 [facility] Comment on above: Performed By: #### C MP ####[facility] Xzmkslxunp656[address] [place], [place] [address]Dr. Farhat Leal Urea nitrogen/Creatinine [Mass ratio] 50.8 mg/mg Normal [facility] Comment on above: Performed By: #### C MP ####[facility] Gsykzvhayo83[address] [place], [place] [address]Dr. Farhat Leal FK506 (TACROLIMUS) WHOLE BLO ODon 04-27-2022 Tacrolimus (FK506), Blood 16.5 ng/mL Normal 2.0-20.0 [facility] Comment on above: Result Comment: Trou gh (immediately following transplant) 15.0 . Trough (steady state, 2 weeks or more after transplant): 3.0 - 8.0 . Performed by LC-MS/MS technology. Performed By: #### F K506T ####[facility] Qhylhgnlid4[address] [place] [address]Dr. Farhat Leal CBC AUTO DIFFon 04-24-2022 BASO # 0.0 103/ul Normal 0.0-0.1 [facility] Comment on above: Performed By: #### C BC ####[facility] Jbujcfewnh86364[address] [place], [place] [address]Dr. Farhat Leal Basophils/100 WBC (Bld) 0.5 % Normal 0.2-2.0 [facility] Comment on above: Performed By: #### C BC ####[facility] Wznznnpcaq0159[address] [place], [place] [address]Dr. Farhat Leal EO # 0.2 103/ul Normal 0.0-0.7 [facility] Comment on above: Performed By: #### C BC ####[facility] Dkhyejopnv9389[address] [place], [place] [address]Dr. Farhat Elvis Eosinophils/100 WBC (Bld) 3.1 % Normal 0.9-7.0 [facility] Comment on above: Performed By: #### C BC ####[facility] [address]yqjextfcb79[address] [place], [place] [address]Dr. Farhat Leal Erythrocyte distribution width (RBC) [Ratio] 16.3 % Critically high 11.0-15.0 [facility] Comment on above: Performed By: #### C BC ####[facility] Lruzhwqpkw510[address] [place], [place] [address]Dr. Farhat Leal Hematocrit (Bld) [Volume fraction] 34.0 % Critically low 42.0-54.0 [facility] Comment on above: Performed By: #### C BC ####[facility] [address]wqnlkihhz16[address] [place], [place] [address]Dr. Farhat Leal Hemoglobin (Bld) [Mass/Vol] 11.6 g/dL Critically low 14.0-18.0 [facility] Comment on above: Performed By: #### C BC ####[facility] Ilcvcmadna95[address] [place], [place] [address]Dr. Farhat Leal IG # 0.02 10e3/ul Normal 0.00-0.03 [facility] Comment on above: Performed By: #### C BC ####[facility] Toxiicubhk84[address] [place] [phone]. Farhat eLal IG % 0.4 % Normal 0.0-0.5 [facility] Comment on above: Performed By: #### C BC ####[facility] Znceftpjfi8853 [place] [id number]. Farhat Leal LYMPH # 2.2 103/ul Normal 1.2-3.8 [facility] Comment on above: Performed By: #### C BC ####[facility] Iteiwobcbb7095 [place] [phone]. Farhat Leal Lymphocytes/100 WBC (Bld) 38.8 % Normal 20.5-60.0 [facility] Comment on above: Performed By: #### C BC ####[facility] Mtjwxrcsfe01[address] [place] [address]Dr. Farhat Leal MANUAL DIFF REQ NO Normal [facility] Comment on above: Performed By: #### C BC ####[facility] Erxeabqxme0814 [place] [phone]. Farhat Leal MCH (RBC) [Entitic mass] 30.1 pg Normal 25.9-34.0 [facility] Comment on above: Performed By: #### C BC ####[facility] Qmtypiwjdm5099 [place] [phone]. Farhat Leal MCHC (RBC) [Mass/Vol] 34.1 g/dL Normal 29.9-35.2 [facility] Comment on above: Performed By: #### C BC ####[facility] Jjdnhwurwi8718 [place] [phone]. Farhat Leal MCV (RBC) [Entitic vol] 88.1 fL Normal 80.0-94.0 [facility] Comment on above: Performed By: #### C BC ####[facility] Qqmpxjmijq3042 [place] [phone]. Farhat Elvis MONO # 0.6 103/ul Normal 0.3-0.8 [facility] Comment on above: Performed By: #### C BC ####[facility] Wasjfqpgqz0935 [place] [phone]. Farhat Leal Monocytes/100 WBC (Bld) 10.8 % Normal 1.7-12.0 [facility] Comment on above: Performed By: #### C BC ####[facility] Uzzpvwaiwm3419 [place] [phone]. Farhat Leal NEUT # 2.6 103/ul Normal 1.4-6.5 [facility] Comment on above: Performed By: #### C BC ####[facility] Lxxvfluwjf0251 [place] [phone]. Farhat Leal Neutrophils/100 WBC (Bld) 46.4 % Normal 43.0-75.0 [facility] Comment on above: Performed By: #### C BC ####[facility] Bqhoirbdju2814 [place] [phone]. Farhat Leal Platelet mean volume (Bld) [Entitic vol] 10.9 fL Normal 9.5-13.5 [facility] Comment on above: Performed By: #### C BC ####[facility] Zinfasekzf3013 [place] [phone]. Farhat Leal PLT 159 103/ul Normal 150-450 [facility] Comment on above: Performed By: #### C BC ####[facility] Vhutwtxygh4595 [place] [phone]. Farhat Leal RBC 3.86 106/ul Critically low 4.70-6.10 [facility] Comment on above: Performed By: #### C BC ####[facility] Uvvyowmjrr[address] [place], [place] [address]Dr. Farhat Leal WBC 5.6 103/ul Normal 4.0-11.0 [facility] Comment on above: Performed By: #### C BC ####[facility] Asnmhykdey1077 [place] [phone]. Farhat Leal PROTIMEon 04-24-2022 INR Coag (PPP) [Relative time] 3.23 {INR} Normal [facility] Comment on above: Performed By: #### P T ####[facility] Lzxgddfuww114[address] [place], [place] [address]DrSkylar Leal INR GUIDELINES SEE BELOW Normal [facility] Comment on above: Result Comment: MALINA RED INR: 2.0 - 3.0 CONDITIONS NOT LISTED BELOW 2.5 - 3.5 FOR PROSTHETIC HEART VALVE REPLACEMENT 2.5 - 3.5 RECURRENT THROMBOSIS Performed By: #### P T ####[facility] Csduxznddd723[address] [place], [place] [address]Dr. Farhat Leal PT Coag (PPP) [Time] 32.0 s Critically high 9.0-11.6 [facility] Comment on above: Performed By: #### P T ####[facility] X[address]xbdzycjv34[address] [place], [place] [address]Dr. Farhat Leal FK506 (TACROLIMUS) WHOLE BLO ODon 04-20-2022 Tacrolimus (FK506), Blood 13.9 ng/mL Normal 2.0-20.0 [facility] Comment on above: Result Comment: Trou gh (immediately following transplant) 15.0 . Trough (steady state, 2 weeks or more after transplant): 3.0 - 8.0 . Performed by LC-MS/MS technology. Performed By: #### F K506T ####[facility] Qfszhuwzrd[address] [place], [place] [address]Dr. Farhat Leal CBC AUTO DIFFon 04-17-2022 BASO # 0.0 103/ul Normal 0.0-0.1 [facility] Comment on above: Performed By: #### C BC ####[facility] Ohligzmgen386[address] [place], [place] [address]DrSkylar Leal Basophils/100 WBC (Bld) 0.4 % Normal 0.2-2.0 [facility] Comment on above: Performed By: #### C BC ####[facility] Jsqdpluhhz24[address] [place], [place] [address]Dr. Farhat Leal EO # 0.2 103/ul Normal 0.0-0.7 [facility] Comment on above: Performed By: #### C BC ####[facility] Jdkfmvijuv366[address] [place], [place] [address]DrSkylar Leal Eosinophils/100 WBC (Bld) 2.8 % Normal 0.9-7.0 [facility] Comment on above: Performed By: #### C BC ####[facility] Gmatmdmlyg3223 [place] [address]Dr. Farhat Leal Erythrocyte distribution width (RBC) [Ratio] 16.1 % Critically high 11.0-15.0 [facility] Comment on above: Performed By: #### C BC ####[facility] Dukjbdkvuh6615 [place] [address]Dr. Farhat Leal Hematocrit (Bld) [Volume fraction] 35.7 % Critically low 42.0-54.0 [facility] Comment on above: Performed By: #### C BC ####[facility] Jkcgyhzqdp227[address] [place], [place] [address]Dr. Farhat Leal Hemoglobin (Bld) [Mass/Vol] 12.2 g/dL Critically low 14.0-18.0 [facility] Comment on above: Performed By: #### C BC ####[facility] Ixvvnnbswq128[address] [place], [place] [address]Dr. Farhat Leal IG # 0.03 10e3/ul Normal 0.00-0.03 [facility] Comment on above: Performed By: #### C BC ####[facility] Spfjmejkfs499[address] [place], [place] [address]Dr. Farhat Leal IG % 0.4 % Normal 0.0-0.5 [facility] Comment on above: Performed By: #### C BC ####[facility] Srxwxpkucn5820[address] [place], [place] [address]Dr. Farhat Leal LYMPH # 2.4 103/ul Normal 1.2-3.8 [facility] Comment on above: Performed By: #### C BC ####[facility] Aafnpbepnk8460[address] [place], [place] [address]Dr. Farhat Leal Lymphocytes/100 WBC (Bld) 36.1 % Normal 20.5-60.0 [facility] Comment on above: Performed By: #### C BC ####[facility] Nmkbeqfdxg166[address] [place], [place] [address]Dr. Farhat Leal MANUAL DIFF REQ NO Normal [facility] Comment on above: Performed By: #### C BC ####[facility] Aybnwlaltz0836 [place] [address]Dr. Farhat Elvis MCH (RBC) [Entitic mass] 30.3 pg Normal 25.9-34.0 [facility] Comment on above: Performed By: #### C BC ####[facility] Prnzopewld8467[address] [place], [place] [address]Dr. Farhat Elvis MCHC (RBC) [Mass/Vol] 34.2 g/dL Normal 29.9-35.2 [facility] Comment on above: Performed By: #### C BC ####[facility] Vjcwudyrgc101[address] [place], [place] [address]Dr. Farhat Leal MCV (RBC) [Entitic vol] 88.6 fL Normal 80.0-94.0 [facility] Comment on above: Performed By: #### C BC ####[facility] Kocrplgije6838[address] [place], [place] [address]Dr. Farhat Leal MONO # 0.7 103/ul Normal 0.3-0.8 [facility] Comment on above: Performed By: #### C BC ####[facility] Bimuigtekd224[address] [place], [place] [address]Dr. Farhat Leal Monocytes/100 WBC (Bld) 10.1 % Normal 1.7-12.0 [facility] Comment on above: Performed By: #### C BC ####[facility] R[address]ubykwbg[address] [place], [place] [address]DrSkylar Leal NEUT # 3.4 103/ul Normal 1.4-6.5 [facility] Comment on above: Performed By: #### C BC ####[facility] D[address]zhuowuq0[address] [place], [place] [address]DrSkylar Leal Neutrophils/100 WBC (Bld) 50.2 % Normal 43.0-75.0 [facility] Comment on above: Performed By: #### C BC ####[facility] Eicyomfwhc[address] [place], [place] [address]Dr. Farhat Leal Platelet mean volume (Bld) [Entitic vol] 11.8 fL Normal 9.5-13.5 [facility] Comment on above: Performed By: #### C BC ####[facility] [address]wozfavc6[address] [place] [address]Dr. Farhat Leal PLT 193 103/ul Normal 150-450 [facility] Comment on above: Performed By: #### C BC ####[facility] Q[address]ibyqvg[address] [place] [address]Dr. Farhat Leal RBC 4.03 106/ul Critically low 4.70-6.10 [facility] Comment on above: Performed By: #### C BC ####[facility] Sdouhtscvi[address] [place] [address]Dr. Farhat Leal WBC 6.8 103/ul Normal 4.0-11.0 [facility] Comment on above: Performed By: #### C BC ####[facility] Ignbwjualn[address] [place] [address]DrSkylar Leal PROF 14(COMP METB)on 023 Albumin [Mass/Vol] 2.9 g/dL Critically low 3.4-5.0 [facility] Comment on above: Performed By: #### C MP ####[facility] F[address]tebdfkr[address] [place] [address]DrSkylar Leal Albumin/Globulin [Mass ratio] 0.9 {ratio} Normal [facility] Comment on above: Performed By: #### C MP ####[facility] Husodvhkky[address] [place] [address]DrSkylar Leal ALP [Catalytic activity/Vol] 67 U/L Normal 46-116 [facility] Comment on above: Performed By: #### C MP ####[facility] Ycqaeicizx[address] [place] [address]DrSkylar Leal ALT [Catalytic activity/Vol] 15 U/L Critically low 16-63 [facility] Comment on above: Performed By: #### C MP ####[facility] Mndsknvfkk7[address] [place] [address]DrSkylar Leal Anion gap [Moles/Vol] 10.8 mmol/L Normal [facility] Comment on above: Performed By: #### C MP ####[facility] Biowzkegqk[address] [place], [place] [address]Dr. Farhat Leal AST [Catalytic activity/Vol] 23 U/L Normal 15-37 [facility] Comment on above: Performed By: #### C MP ####[facility] Edmimtplqu[address] [place], [place] [address]Dr. Farhat Leal Bilirubin [Mass/Vol] 0.6 mg/dL Normal 0.2-1.0 [facility] Comment on above: Performed By: #### C MP ####[facility] K[address]vwlnqqd[address] [place], [place] [address]Dr. Farhat Elvis Calcium [Mass/Vol] 8.7 mg/dL Normal 8.5-10.1 [facility] Comment on above: Performed By: #### C MP ####[facility] Znmkebzelz[address] [place], [place] [address]Dr. Farhat Elvis Chloride [Moles/Vol] 105 mmol/L Normal 98-107 [facility] Comment on above: Performed By: #### C MP ####[facility] Quuoiqdlkf[address] [place], [place] [address]Dr. Farhat Elvis CO2 [Moles/Vol] 29.5 mmol/L Normal 21.0-32.0 [facility] Comment on above: Performed By: #### C MP ####[facility] Uqwmcvdrmi43[address] [place], [place] [address]Dr. Farhat Elvis Creatinine [Mass/Vol] 1.37 mg/dL Critically high 0.70-1.30 [facility] Comment on above: Performed By: #### C MP ####[facility] Ipvmtbnixu8[address] [place], [place] [address]Dr. Madelynlorri Elvis EGFR-AF [place] >60 Normal >=60 [facility] Comment on above: Performed By: #### C MP ####[facility] Ucxikpotwt4[address] [place], [place] [address]Dr. Farhat Leal EGFR-NON AF [place] 50 mL/min/1.73m2 Critically low >=60 [facility] Comment on above: Performed By: #### C MP ####[facility] C[address]xcoplmc[address] [place] [address]Dr. Farhat Leal Globulin (S) [Mass/Vol] 3.1 g/dL Normal [facility] Comment on above: Performed By: #### C MP ####[facility] Bmsbjjtulv[address] [place] [address]Dr. Farhat Leal Glucose [Mass/Vol] 203 mg/dL Critically high 74-106 [facility] Comment on above: Performed By: #### C MP ####[facility] Hjhyjojvph[address] [place] [address]Dr. Farhat Leal Potassium [Moles/Vol] 4.3 mmol/L Normal 3.5-5.1 [facility] Comment on above: Performed By: #### C MP ####[facility] Wrpecdsaff[address] [place], [place] [address]Dr. Farhat Leal Protein [Mass/Vol] 6.0 g/dL Critically low 6.4-8.2 Th [facility] Comment on above: Performed By: #### C MP ####[facility] Uzzyrhdmpm[address] [place], [place] [address]Dr. Farhat Leal Sodium [Moles/Vol] 141 mmol/L Normal 136-145 [facility] Comment on above: Performed By: #### C MP ####[facility] Unylmbchiz[address] [place] [address]Dr. Farhat Leal Urea nitrogen [Mass/Vol] 65.0 mg/dL Critically high 7.0-18.0 [facility] Comment on above: Performed By: #### C MP ####[facility] Mtsaqifimt1020[address] [place], [place] [address]Dr. Farhat Leal Urea nitrogen/Creatinine [Mass ratio] 47.4 mg/mg Normal [facility] Comment on above: Performed By: #### C MP ####[facility] Ab[address]wrjhwxg32[address] [place], [place] [address]Dr. Farhat Leal PROTIMEon 04-15-2022 INR Coag (PPP) [Relative time] 3.88 {INR} Normal [facility] Comment on above: Performed By: #### P T ####[facility] L[address]ubx[address] [place], [place] [address]Oz. Farhat Leal INR GUIDELINES SEE BELOW Normal [facility] Comment on above: Result Comment: MALINA RED INR: 2.0 - 3.0 CONDITIONS NOT LISTED BELOW 2.5 - 3.5 FOR PROSTHETIC HEART VALVE REPLACEMENT 2.5 - 3.5 RECURRENT THROMBOSIS Performed By: #### P T ####[facility] Bqbfewqtmv7172 [place], [place] [address]Fv. Farhat Leal PT Coag (PPP) [Time] 38.1 s Critically high 9.0-11.6 [facility] Comment on above: Performed By: #### P T ####[facility] Kuwhoyimqe2815 [place], [place] [address]Ht. Farhat Leal Glucose Glucometer (dC) [M ass/Vol]Ordered By: Sadia Augilar on 04-14-2022 Glucose [Mass/Vol] 162 mg/dL [facility] Comment on above: Random Glucose Refer ence Range is dependent on time and content of last meal. Glucose of more than 200 mg/dL in a nonstressed, ambulatory subject supports the diagnosis of Diabetes Mellitus. Glucose Poct Glucometerson 0 04-14-2022 Commemt1 Glu2: Cleaned Meter Normal [facility] Comment on above: Result Comment: PERF ORMED BY: [facility] [address] [place] [address] PATHOLOGIST CONE TRUCKER JOSE F ELLIOTT M.D. Performed By: #### G LULS #### Point of Care testing , Glucose [Mass/Vol] 162 mg/dL Normal [facility] Comment on above: Result Comment: [facility] Glucose Reference Range is dependent on time and content of last meal. Glucose of more than 200 mg/dL in a nonstressed, ambulatory subject supports the diagnosis of Diabetes Mellitus. Performed By: #### G LULS #### Point of Care testing , No Panel InformationOrdered By: Sadia Aguilar on 04-14-2022 Bedside Glucose Comment Glu2: cleaned meter [facility] MAGNESIUMon 04-13-2022 Magnesium [Mass/Vol] 1.7 mg/dL Critically low 1.8-2.4 [facility] Comment on above: Performed By: #### M Anais, PHOS ####[facility] [address]my[address]qyj[address] [place] [address]Dr. Madelynlorri Leal PHOSPHORUSon 04-13-2022 Phosphate [Mass/Vol] 4.8 mg/dL Critically high 2.6-4.7 [facility] Comment on above: Performed By: #### M Anais, PHOS ####[facility] [address]esrvywecp[address] [place] [address]Dr. Farhat Leal PROTIMEon 04-13-2022 INR Coag (PPP) [Relative time] 3.16 {INR} Normal [facility] Comment on above: Performed By: #### P T ####[facility] P[address]omfesqf[address] [place], [place] [address]DrSkylar Leal INR GUIDELINES SEE BELOW Normal [facility] Comment on above: Result Comment: MALINA RED INR: 2.0 - 3.0 CONDITIONS NOT LISTED BELOW 2.5 - 3.5 FOR PROSTHETIC HEART VALVE REPLACEMENT 2.5 - 3.5 RECURRENT THROMBOSIS Performed By: #### P T ####[facility] Dxkozkmxbn[address] [place], [place] [address]DrSkylar Leal PT Coag (PPP) [Time] 31.4 s Critically high 9.0-11.6 [facility] Comment on above: Performed By: #### P T ####[facility] Sbtrkvtx[address] [place] [address]Dr. Farhat Leal MAGNESIUMon 03-11-2022 Magnesium [Mass/Vol] 1.6 mg/dL Critically low 1.8-2.4 [facility] Comment on above: Performed By: #### M Anais, PHOS ####[facility] H[address]fg[address]ws[address] [place], [place] [address]Dr. Farhat Leal PHOSPHORUSon 03-11-2022 Phosphate [Mass/Vol] 5.3 mg/dL Critically high 2.6-4.7 [facility] Comment on above: Performed By: #### M HENRI Manzo ####[facility] [address]nfbiavgqe[address] [place], [place] [address]RySkylar Gaston 02-26-2022 CNOV Office Visit (VASSMN ) ALEX ALMONTE ([id number]) 1945 M TRN Date Time Provider Department 02/26/22 3:00 PM HINA PETERSON During your visit today, we recorded the following information about you: Temperature Pulse Blood pressure 96.6 degrees 75/minute 88/75 Hina Peterson MD, MD 02/26/2022 4:31 PM [facility] [place] DEPARTMENT OF VASCULAR SURGERY OUTPATIENT VISIT DATE [...] PAST MEDICAL HISTORY Diagnosis Date 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 [employer] [place] with lunch aspirin, enteric coated (ASPIRIN, ENTERIC COATED) 81 mg EC tablet Take 1 tablet by (more content not included)... Normal [facility] PROTIMEon 02-25-2022 INR Coag (PPP) [Relative time] 1.31 {INR} Normal [facility] Comment on above: Performed By: #### P T ####[facility] [address]ys[address] [place] [address]Dr. Farhat Leal INR GUIDELINES SEE BELOW Normal [facility] Comment on above: Result Comment: MALINA RED INR: 2.0 - 3.0 CONDITIONS NOT LISTED BELOW 2.5 - 3.5 FOR PROSTHETIC HEART VALVE REPLACEMENT 2.5 - 3.5 RECURRENT THROMBOSIS Performed By: #### P T ####[facility] [address]xe[address]vmk[address] [place], [place] [address]JnDr. Farhat Leal PT Coag (PPP) [Time] 13.7 s Critically high 9.0-11.6 [facility] Comment on above: Performed By: #### P T ####[facility] Iz[address] [place], [place] [address]YkSkylar Leal DIAMANTERosalie 02-19-2022 CNPN Telephone (TXCTGL) ALEX ALMONTE ([id number]) 1945 M TRN Date Time Provider Department [...] by mouth daily with lunch. 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] 07/30/2006 VITAMIN D DEFICIENCY NOS [E55.9] 09/07/2008 [...] diabetes mellitus with diabetic peripher*11/29/2021 Atherosclerosis of [place] artery of extremity w*11/29/2021 Malnutrition of moderate degree (HCC) [E44.0] 12/01/2021 Dermatitis associated with moisture [L30.8] 12/04/2021 Encounter Status:Closed by AUGUSTA MEDRANO on 02/19/22 [facility] Sonya 02-18-2022 CONRADO Telephone (PODCCP) ALEX ALMONTE ([id number]) 1945 M TRN Date Time Provider Department 02/18/22 DEVON MOREIRA During your visit today, we recorded the following information about you: Yumiko Denise 02/18/2022 3:16 PM Signed Reason for call: Mr. Almonte would like to request a sooner appointment with Dr. Peterson than 04/13/2022. Contact Name (if not the patient) Alex's nurse Home and cell number(Ask for Alex's nurse) [phone] Diagnosis 4 mo f/u wound check Best [...] by mouth daily with lunch. 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 Normal [facility] Alek 02-05-2022 CNOV Office Visit (TXCTGL ) ALEX ALMONTE ([id number]) 1945 M TRN Date Time Provider Department 02/05/22 8:20 AM KIDNEY TXP CLINIC TXCTGL During your visit today, we recorded the following information about you: Temperature Pulse Blood pressure 96.7 degrees 79/minute 72/42 Asia Pike MD 02/05/2022 9:38 AM Signed [facility] [place] Transplant Follow up Portions of this note [...] snacks patient declined. Indra scale at [facility]: 166.2 lbs per patient. Bed sore on coccyx causing discomfort. Being changed regularly at SNF- reported to be smaller around but still as deep. Patient not very up to date with medications. Patient brought paperwork from [employer] with all medications being received. Patient unsure if they have been drawing labs regularly. Last Tac from 01/19: 12.9 and K 5.9. In need of current labs. Lab orders will be sent with patient and follows as below: Kidney and Pancreas Transplant Standing Lab Orders [address] [place], [place] [address] February 05, 2022 Alex Almonte 1945 [id number] STANDARD TESTING: Diagnosis Codes: Z94.0 Kidney Transplant [...] AT YOUR LABORATORY FACILITY AND FAX TO [phone]. PLEASE CALL [phone]. Provider: Dr. Pike Current Outpatient Medications Medication [...] Take 237 (more content not included)... Normal [facility] PROTEIN CREATININE RATIOon 1 04-08-2021 Protein/Creatinine (U) [Mass ratio] 0.10 mg/mg <0.15 mg/mg [facility] PROTIMEon 02-05-2022 INR Coag (PPP) [Relative time] 2.90 {INR} Normal [facility] Comment on above: Performed By: #### P T ####[facility] [address] [place] [address]DrSkylar Leal INR GUIDELINES SEE BELOW Normal [facility] Comment on above: Result Comment: MALINA RED INR: 2.0 - 3.0 CONDITIONS NOT LISTED BELOW 2.5 - 3.5 FOR PROSTHETIC HEART VALVE REPLACEMENT 2.5 - 3.5 RECURRENT THROMBOSIS Performed By: #### P T ####[facility] [address] [place] [id number]. Farhat Leal PT Coag (PPP) [Time] 29.2 s Critically high 9.0-11.6 [facility] Comment on above: Performed By: #### P T ####[facility] Ly[address] [place] [id number]. Farhat Leal Prot/Creat Uron 02-05-2022 Protein/Creatinine (U) [Mass ratio] 0.10 mg/mg Normal <0.15 [facility] Comment on above: Order Comment: Speci men Type: URINE SPECIMENOrdering Facility: [facility] Address: [place] [address] Result Comment: Adul t Proteinuria Categories: <0.15 mg/mg is considered normal to mildly increased 0.15 - 0.50 mg/mg is considered moderately increased >0.50 mg/mg is considered severely increased KDIGO. (2013). KDIGO 2012 Clinical Practice Guideline for the Evaluation and Management of Chronic Kidney Disease. Official Journal of the International Society of Nephrology, 3(1), 1-150. Performed By: #### 2 890-2 ####[facility] [id number] [place] [address] [place] Protein/Creatinine (U) [Mass ratio]on 02-05-2022 Creatinine (U) [Mass/Vol] 86.9 mg/dL Normal 20.0-300.0 [facility] Comment on above: Order Comment: Speci men Type: URINE SPECIMENOrdering Facility: [facility] Address: [address] [place], [place] [id number] Performed By: #### 2 890-2 ####[facility] [id number] [place] [address] [place] Creatinine (U) [Mass/Vol] 86.9 mg/dL 20.0 - 300.0 mg/dL [facility] Protein (U) [Mass/Vol] 9 mg/dL Normal 0-20 Cl [facility] Comment on above: Order Comment: Speci men Type: URINE SPECIMENOrdering Facility: [facility] Address: [address] [place], [place] [id number] Performed By: #### 2 890-2 ####[facility] [id number] [place] [address] [place] Protein (U) [Mass/Vol] 9 mg/dL 0 - 20 mg/dL [facility] URINALYSIS, DIPSTICK ONLYon 02-05-2022 Bilirubin Ql (U) Negative Normal Negative [facility] Comment on above: Order Comment: Speci men Type: URINE SPECIMEN [facility] Address: [address] [place], [place] [address] Performed By: #### U A #### [facility] CLIA [id number] [address] [place] Clarity (Unsp spec) Clear Normal Clear [facility] Comment on above: Order Comment: Speci men Type: URINE SPECIMEN [facility] Address: [address] [place] [address] Performed By: #### U A #### [facility] CLIA [id number] [address] [place] Color (U) Yellow Normal Yellow [facility] Comment on above: Order Comment: Speci men Type: URINE SPECIMEN [facility] Address: [address] [place], [place] [id number] Performed By: #### U A #### [facility] CLIA [id number] [address] [place] [address] [place] Glucose Test strip (U) [Mass/Vol] 3+ Abnormal Trace, Negative [facility] Comment on above: Order Comment: Speci men Type: URINE SPECIMEN [facility] Address: [address] [place], [place] [id number] Performed By: #### U A #### [facility] CLIA [id number] [address] [place] [address] [place] Hemoglobin Ql (U) Negative Normal Negative, Trace [facility] Comment on above: Order Comment: Speci men Type: URINE SPECIMEN [facility] Address: [address] [place], [place] [id number] Performed By: #### U A #### [facility] CLIA [id number] [address] [place] Ketones Ql (U) Trace Normal Negative, Trace [facility] Comment on above: Order Comment: Speci men Type: URINE SPECIMEN [facility] Address: [address] [place], [place] [id number] Performed By: #### U A #### [facility] CLIA [id number] [address] [place] Leukocyte esterase Test strip Ql (U) Negative Normal Negative, 25 Loraine/mL [facility] Comment on above: Order Comment: Speci men Type: URINE SPECIMEN [facility] Address: [address] [place] [address] Performed By: #### U A #### [facility] CLIA [id number] [address] [place] [address] [place] Nitrite Ql (U) Negative Normal Negative [facility] Comment on above: Order Comment: Speci men Type: URINE SPECIMEN [facility] Address: [address] [place], [place] [id number] Performed By: #### U A #### [facility] CLIA [id number] [address] [place] [address] [place] pH (U) 5.5 [pH] Normal 5.0-8.0 [facility] Comment on above: Order Comment: Speci men Type: URINE SPECIMEN [facility] Address: [address] [place], [place] [id number] Performed By: #### U A #### [facility] CLIA [id number] [address] [place] [address] [place] Protein (U) [Mass/Vol] Negative Normal Trace , Negative [facility] Comment on above: Order Comment: Speci men Type: URINE SPECIMEN [facility] Address: [address] [place], [place] [id number] Performed By: #### U A #### [facility] CLIA [id number] [address] [place] Specific gravity (U) [Rel density] 1.014 Normal 1.005-1.030 [facility] Comment on above: Order Comment: Speci men Type: URINE SPECIMEN [facility] Address: [address] [place] [address] Performed By: #### U A #### [facility] CLIA [id number] [address] [place] [address] [place] Urobilinogen Ql (U) 1+ Abnormal Negative [facility] Comment on above: Order Comment: Speci men Type: URINE SPECIMEN [facility] Address: [address] [place] [address] Performed By: #### U A #### [facility] CLIA [id number] [address] [place] [address] OF [place] FK506 (TACROLIMUS) WHOLE BLO ODon 01-29-2022 Tacrolimus (FK506), Blood 11.1 ng/mL Normal 2.0-20.0 [facility] Comment on above: Result Comment: Trou gh (immediately following transplant) 15.0 . Trough (steady state, 2 weeks or more after transplant): 3.0 - 8.0 . Performed by LC-MS/MS technology. Performed By: #### F K506T ####[facility] Jwussamv[address] [place], [place] [address]Dr. Farhat Leal PHOSPHORUSon 01-26-2022 Phosphate [Mass/Vol] 4.1 mg/dL Normal 2.6-4.7 [facility] Comment on above: Performed By: #### C CARA PHOS ####[facility] V[address]fgthj[address] [place], [place] [address]DrSkylar Leal PROF 14(COMP METB)on 022 Albumin [Mass/Vol] 2.1 g/dL Critically low 3.4-5.0 [facility] Comment on above: Performed By: #### C CARA PHOS ####[facility] Sofkkveixf[address] [place], [place] [address]DrSkylar Leal Albumin/Globulin [Mass ratio] 0.6 {ratio} Normal [facility] Comment on above: Performed By: #### C CARA, PHOS ####[facility] [address] [place] [address]Dr. Farhat Leal ALP [Catalytic activity/Vol] 89 U/L Normal 46-116 [facility] Comment on above: Performed By: #### C CARA, PHOS ####[facility] Jfnjmkxbmu[address] [place], [place] [address]Dr. Farhat Leal ALT [Catalytic activity/Vol] 27 U/L Normal 16-63 [facility] Comment on above: Performed By: #### C CARA, PHOS ####[facility] [address]wyzxos[address] [place], [place] [address]Dr. Farhat Leal Anion gap [Moles/Vol] 12.3 mmol/L Normal [facility] Comment on above: Performed By: #### C CARA, PHOS ####[facility] [address]dlbjuprj[address] [place], [place] [address]Dr. Farhat Leal AST [Catalytic activity/Vol] 53 U/L Critically high 15-37 [facility] Comment on above: Performed By: #### C CARA, PHOS ####[facility] Ghggrueqzt17[address] [place], [place] [address]Dr. Farhat Leal Bilirubin [Mass/Vol] 0.6 mg/dL Normal 0.2-1.0 [facility] Comment on above: Performed By: #### C CARA, PHOS ####[facility] Mehpiylczl[address] [place], [place] [address]Dr. Farhat Leal Calcium [Mass/Vol] 8.0 mg/dL Critically low 8.5-10.1 [facility] Comment on above: Performed By: #### C CARA, PHOS ####[facility] [address]rp[address] [place], [place] [address]Dr. Farhat Elvis Chloride [Moles/Vol] 97 mmol/L Critically low 98-107 [facility] Comment on above: Performed By: #### C CARA, PHOS ####[facility] [address] [place] [address]Dr. Farhat Leal CO2 [Moles/Vol] 26.6 mmol/L Normal 21.0-32.0 [facility] Comment on above: Performed By: #### C CARA, PHOS ####[facility] S[address] [place] [address]Dr. Farhat Leal Creatinine [Mass/Vol] 1.03 mg/dL Normal 0.70-1.30 [facility] Comment on above: Performed By: #### C CARA, PHOS ####[facility] [address]pq[address] [place] [address]Dr. Farhat Leal EGFR-AF [place] >60 Normal >=60 [facility] Comment on above: Performed By: #### C CARA, PHOS ####[facility] [address]wth[address] [place], [place] [address]Dr. Farhat Leal EGFR-NON AF [place] >60 Normal >=60 [facility] Comment on above: Performed By: #### C CARA, PHOS ####[facility] C[address]dcjpcdf[address] [place], [place] [address]Dr. Farhat Leal Globulin (S) [Mass/Vol] 3.7 g/dL Normal [facility] Comment on above: Performed By: #### C CARA, PHOS ####[facility] [address]cudsdx[address] [place], [place] [address]Dr. Farhat Leal Glucose [Mass/Vol] 287 mg/dL Critically high 74-106 T [facility] Comment on above: Performed By: #### C CARA, PHOS ####[facility] [address] [place] [address]Dr. Farhat Leal Potassium [Moles/Vol] 3.9 mmol/L Normal 3.5-5.1 [facility] Comment on above: Performed By: #### C CARA, PHOS ####[facility] [address] [place] [address]Dr. Farhat Leal Protein [Mass/Vol] 5.8 g/dL Critically low 6.4-8.2 Th [facility] Comment on above: Performed By: #### C CARA, PHOS ####[facility] [address] [place], [place] [address]Dp. Farhat Leal Sodium [Moles/Vol] 132 mmol/L Critically low 136-145 Th [facility] Comment on above: Performed By: #### C CARA, PHOS ####[facility] [address]aywvplo[address] [place], [place] [address]Qv. Farhat Leal Urea nitrogen [Mass/Vol] 23.0 mg/dL Critically high 7.0-18.0 [facility] Comment on above: Performed By: #### C CARA, PHOS ####[facility] [address]ar[address] [place] [id number]. Farhat Leal Urea nitrogen/Creatinine [Mass ratio] 22.3 mg/mg Normal [facility] Comment on above: Performed By: #### C CARA, PHOS ####[facility] H[address]ffyl[address] [place] [id number]. Farhat Leal FK506 (TACROLIMUS) WHOLE BLO ODon 01-21-2022 Tacrolimus (FK506), Blood 12.2 ng/mL Normal 2.0-20.0 [facility] Comment on above: Result Comment: Trou gh (immediately following transplant) 15.0 . Trough (steady state, 2 weeks or more after transplant): 3.0 - 8.0 . Performed by LC-MS/MS technology. Performed By: #### F K506T ####[facility] [address]waasdanx[address] [place] [id number]. Farhat Leal ACID FAST SMEAR AND CXon Acid Fast Culture Negative Normal [facility] Comment on above: Result Comment: No a abdiel fast bacilli isolated after 6 weeks. Performed By: #### A FB ####[facility] Iktah[address]qh[address] [place] [phone]. Farhat Leal Acid Fast Smear Negative Normal [facility] Comment on above: Performed By: #### A FB ####[facility] Wbnimdjmss6[address] [place] [phone]. Farhat Leal AF[employer] Specimen Processing Tissue Grinding Normal [facility] Comment on above: Performed By: #### A FB ####[facility] F[address]vc[address] [place], [place] [address]BkSkylar Leal Sonya 01-20-2022 DIAMANTEN Telephone (KIMBERLY) ALEX ALMONTE ([id number]) 1945 M TRN Date Time Provider Department [...] by mouth daily with lunch. 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 Atherosclerosis of [place] artery of extremity w*11/29/2021 Malnutrition of moderate degree (HCC) [E44.0] 12/01/2021 Dermatitis associated with moisture [L30.8] 12/04/2021 Encounter Status:Closed by VAN OLIVAREZ on 01/20/22 Normal [facility] Walter PROF 14(COMP METB)on 022 Albumin [Mass/Vol] 1.9 g/dL Critically low 3.4-5.0 Th e [facility] Comment on above: Performed By: #### C MP ####[facility] [address]lhp[address] [place] [address]DrSkylar Leal Albumin/Globulin [Mass ratio] 0.5 {ratio} Normal [facility] Comment on above: Performed By: #### C MP ####[facility] Pbuaikbctb380[address] [place] [id number]. Farhat Leal ALP [Catalytic activity/Vol] 78 U/L Normal 46-116 The [facility] Comment on above: Performed By: #### C MP ####[facility] Vineaupswi68[address] [place] [phone]. Farhat Leal ALT [Catalytic activity/Vol] 22 U/L Normal 16-63 The [facility] Comment on above: Performed By: #### C MP ####[facility] Mhwjwedxxh37[address] [place] [address]Dr. Farhat Leal Anion gap [Moles/Vol] 8.0 mmol/L Normal [facility] Comment on above: Performed By: #### C MP ####[facility] [address]zfqmpvdky[address] [place] [address]Dr. Farhat Leal AST [Catalytic activity/Vol] 92 U/L Critically high 15-37 [facility] Comment on above: Performed By: #### C MP ####[facility] Qtxifwellj[address] [place] [address]Dr. Farhat Leal Bilirubin [Mass/Vol] 0.7 mg/dL Normal 0.2-1.0 The [facility] Comment on above: Performed By: #### C MP ####[facility] Wotebxnbmz[address] [place] [address]Dr. Farhat Leal Calcium [Mass/Vol] 7.8 mg/dL Critically low 8.5-10.1 Th [facility] Comment on above: Performed By: #### C MP ####[facility] W[address]xheun[address] [place] [address]Dr. Farhat Leal Chloride [Moles/Vol] 99 mmol/L Normal 98-107 The [facility] Comment on above: Performed By: #### C MP ####[facility] Ypsezkixtx79[address] [place] [address]Dr. Farhat Leal CO2 [Moles/Vol] 30.9 mmol/L Normal 21.0-32.0 The [facility] Comment on above: Performed By: #### C MP ####[facility] Hnczcenzfh8732 [place] [address]Dr. Madelynlorri Leal Creatinine [Mass/Vol] 0.95 mg/dL Normal 0.70-1.30 [facility] Comment on above: Performed By: #### C MP ####[facility] Qewxzuetdl[address] [place], [place] [address]Dr. Farhat Elvis EGFR-AF [place] >60 Normal >=60 [facility] Comment on above: Performed By: #### C MP ####[facility] Tovmsqisjp95[address] [place], [place] [address]Dr. Farhat Leal EGFR-NON AF [place] >60 Normal >=60 [facility] Comment on above: Performed By: #### C MP ####[facility] Fuumwmdlol[address] [place], [place] [address]Dr. Farhat Leal Globulin (S) [Mass/Vol] 3.9 g/dL Normal [facility] Comment on above: Performed By: #### C MP ####[facility] Rynnhtjiym[address] [place], [place] [address]Dr. Farhat Leal Glucose [Mass/Vol] 124 mg/dL Critically high 74-106 T [facility] Comment on above: Performed By: #### C MP ####[facility] Xhysaslpwm718[address] [place], [place] [address]Dr. Farhat Leal Potassium [Moles/Vol] 5.9 mmol/L Critically high 3.5-5.1 [facility] Comment on above: Performed By: #### C MP ####[facility] Vuflbirnev[address] [place], [place] [address]Dr. Farhat Leal Protein [Mass/Vol] 5.8 g/dL Critically low 6.4-8.2 Th [facility] Comment on above: Performed By: #### C MP ####[facility] Tdpiypbkci[address] [place], [place] [address]Dr. Farhat Leal Sodium [Moles/Vol] 132 mmol/L Critically low 136-145 Th [facility] Comment on above: Performed By: #### C MP ####[facility] Cozetmjfzw[address] [place], [place] [address]Dr. Farhat Leal Urea nitrogen [Mass/Vol] 18.0 mg/dL Normal 7.0-18.0 [facility] Comment on above: Performed By: #### C MP ####[facility] Qrj[address]eyeda[address] [place], [place] [address]Xe. Farhat Leal Urea nitrogen/Creatinine [Mass ratio] 18.9 mg/mg Normal [facility] Comment on above: Performed By: #### C MP ####[facility] [address]fki[address] [place] [phone]. Farhat Leal INR (POC)on 01-12-2022 INR Coag (PPP) [Relative time] 2.6 {INR} High 0.8 - 1.2 [facility] Internal Quality Check Acceptable [facility] ACID FAST SMEAR AND CXon Acid Fast Culture Negative Normal [facility] Comment on above: Result Comment: No a abdiel fast bacilli isolated after 6 weeks. Performed By: #### A FB ####[facility] Ryic[address]wn[address] [place], [place] [id number]. Farhat Leal Acid Fast Smear Negative Normal [facility] Comment on above: Performed By: #### A FB ####[facility] Hqcxbijiof[address] [place], [place] [id number]. Farhat Leal [employer] Specimen Processing Direct Inoculation Normal [facility] Comment on above: Performed By: #### A FB ####[facility] [address]oewscfmb76[address] [place] [phone]. Madelynlorri Leal ACID FAST SMEAR AND CXon Acid Fast Culture Negative Normal [facility] Comment on above: Result Comment: No a abdiel fast bacilli isolated after 6 weeks. Performed By: #### A FB ####[facility] Mvipipwjcg13[address] [place] [phone]. Farhat Leal Acid Fast Smear Negative Normal [facility] Comment on above: Performed By: #### A FB ####[facility] Lwgrgoqkze70[address] [place] [phone]. Farhat Leal [employer] Specimen Processing Tissue Grinding Normal [facility] Comment on above: Performed By: #### A FB ####[facility] Myzybbqrkx76[address] [place] [phone]. Farhat Leal FUNGAL CULTUREon 01-02-2022 Fungus (Mycology) Culture Final report Normal [facility] Comment on above: Performed By: #### C XFUN ####[facility] Vkectssyzv[address] [place], [place] [address]Dr. Farhat Leal Fungus Stain Final report Normal The [facility] Comment on above: Performed By: #### C XFUN ####[facility] Djejctqrof[address] [place] [address]Dr. Farhat Leal Result 1 Comment Normal [facility] Comment on above: Result Comment: ANNI/ Calcofluor preparation: no fungus observed. Performed By: #### C XFUN ####[facility] Yyltingckb[address] [place], [place] [address]Dr. Farhat Leal Result Comment: No y east or mold isolated after 4 weeks. FK506 (TACROLIMUS) WHOLE BLO ODon 12-31-2021 Tacrolimus (FK506), Blood 7.7 ng/mL Normal 2.0-20.0 [facility] Comment on above: Result Comment: Trou gh (immediately following transplant) 15.0 . Trough (steady state, 2 weeks or more after transplant): 3.0 - 8.0 . Performed by LC-MS/MS technology. Performed By: #### F K506T ####[facility] Vnpdgvtfdx[address] [place], [place] [address]Dr. Farhat Leal HEMOGRAM AND PLATELon 2021 Hematocrit (Bld) [Volume fraction] 27.1 % Critically low 42.0-54.0 [facility] Comment on above: Performed By: #### H H ####[facility] Skvaikadzs[address] [place], [place] [address]Dr. Farhat Leal Hemoglobin (Bld) [Mass/Vol] 8.7 g/dL Critically low 14.0-18.0 [facility] Comment on above: Performed By: #### H H ####[facility] V[address]mldxcug[address] [place], [place] [address]Dr. Farhat Leal MCH (RBC) [Entitic mass] 30.3 pg Normal 25.9-34.0 The [facility] Comment on above: Performed By: #### H H ####[facility] B[address]nom[address] [place] [address]Dr. Farhat Leal MCHC (RBC) [Mass/Vol] 32.1 g/dL Normal 29.9-35.2 [facility] Comment on above: Performed By: #### H H ####[facility] Nrrkufqzyb1541 [place] [phone]. Farhat Elvis MCV (RBC) [Entitic vol] 94.4 fL Critically high 80.0-94.0 [facility] Comment on above: Performed By: #### H H ####[facility] [address]qnlbrql[address] [place] [address]Dr. Farhat Elvis PLT 355 103/ul Normal 150-450 [facility] Comment on above: Performed By: #### H H ####[facility] D[address]rcajnaa6[address] [place] [address]Dr. Farhat Leal RBC 2.87 106/ul Critically low 4.70-6.10 [facility] Comment on above: Performed By: #### H H ####[facility] Wy[address]ymtbh[address] [place] [address]Dr. Farhat Elvis WBC 6.0 103/ul Normal 4.0-11.0 [facility] Comment on above: Performed By: #### H H ####[facility] Qnwspvzfam8100 [place] [phone]. Farhat Leal PHOSPHORUSon 12-29-2021 Phosphate [Mass/Vol] 2.5 mg/dL Critically low 2.6-4.7 [facility] Comment on above: Performed By: #### P HOS, CMP ####[facility] Uklkomxrnq[address] [place] [address]Dr. Farhat Leal PROF 14(COMP METB)on 022 Albumin [Mass/Vol] 1.7 g/dL Critically low 3.4-5.0 [facility] Comment on above: Performed By: #### P HOS, CMP ####[facility] Rylrfbseys[address] [place] [address]Dr. Farhat Leal Albumin/Globulin [Mass ratio] 0.5 {ratio} Normal [facility] Comment on above: Performed By: #### P HOS, CMP ####[facility] Jjkknmuboc[address] [place], [place] [address]Dr. Farhat Leal ALP [Catalytic activity/Vol] 78 U/L Normal 46-116 [facility] Comment on above: Performed By: #### P HOS, CMP ####[facility] Dyybregshw20[address] [place], [place] [address]Dr. Farhat Leal ALT [Catalytic activity/Vol] 12 U/L Critically low 16-63 [facility] Comment on above: Performed By: #### P HOS, CMP ####[facility] Zbcjvipymj75[address] [place], [place] [address]Dr. Farhat Leal Anion gap [Moles/Vol] 5.1 mmol/L Normal [facility] Comment on above: Performed By: #### P HOS, CMP ####[facility] Jzbaygynnz[address] [place], [place] [address]Dr. Farhat Leal AST [Catalytic activity/Vol] 22 U/L Normal 15-37 [facility] Comment on above: Performed By: #### P HOS, CMP ####[facility] Srflobuzmh2475[address] [place], [place] [address]Dr. Farhat Leal Bilirubin [Mass/Vol] 0.6 mg/dL Normal 0.2-1.0 [facility] Comment on above: Performed By: #### P HOS, CMP ####[facility] Skzjqjzkny134[address] [place], [place] [address]Dr. Farhat Leal Calcium [Mass/Vol] 8.1 mg/dL Critically low 8.5-10.1 Th [facility] Comment on above: Performed By: #### P HOS, CMP ####[facility] Rlcbpdgvql[address] [place], [place] [address]Dr. Madelynlorri Elvis Chloride [Moles/Vol] 100 mmol/L Normal 98-107 [facility] Comment on above: Performed By: #### P HOS, CMP ####[facility] Nrrauzqfmg9[address] [place] [address]Dr. Farhat Leal CO2 [Moles/Vol] 34.2 mmol/L Critically high 21.0-32.0 [facility] Comment on above: Performed By: #### P HOS, CMP ####[facility] Lecziavdzx600[address] [place], [place] [address]Dr. Farhat Leal Creatinine [Mass/Vol] 0.92 mg/dL Normal 0.70-1.30 [facility] Comment on above: Performed By: #### P HOS, CMP ####[facility] Rqzjitbwdi87[address] [place], [place] [address]Dr. Farhat Leal EGFR-AF [place] >60 Normal >=60 [facility] Comment on above: Performed By: #### P HOS, CMP ####[facility] Iuzjqjktul89[address] [place], [place] [address]Dr. Farhat Leal EGFR-NON AF [place] >60 Normal >=60 [facility] Comment on above: Performed By: #### P HOS, CMP ####[facility] Xrpklzxafe794[address] [place], [place] [address]Dr. Farhat Leal Globulin (S) [Mass/Vol] 3.3 g/dL Normal [facility] Comment on above: Performed By: #### P HOS, CMP ####[facility] Iyazxfxcaj16[address] [place], [place] [address]Dr. Farhat Leal Glucose [Mass/Vol] 116 mg/dL Critically high 74-106 T [facility] Comment on above: Performed By: #### P HOS, CMP ####[facility] Gyplhcnimg4037[address] [place], [place] [address]Dr. Farhat Leal Potassium [Moles/Vol] 3.3 mmol/L Critically low 3.5-5.1 [facility] Comment on above: Performed By: #### P HOS, CMP ####[facility] Nehwiwlnbb5050[address] [place], [place] [address]Dr. Farhat Leal Protein [Mass/Vol] 5.0 g/dL Critically low 6.4-8.2 Th e [facility] Comment on above: Performed By: #### P HOS, CMP ####[facility] Gwwlgqvtfp0024 [place] [phone]. Farhat Leal Sodium [Moles/Vol] 136 mmol/L Normal 136-145 [facility] Comment on above: Performed By: #### P HOS, CMP ####[facility] Lgxepvlsce8894 [place] [address]Dr. Farhat Leal Urea nitrogen [Mass/Vol] 14.0 mg/dL Normal 7.0-18.0 [facility] Comment on above: Performed By: #### P HOS, CMP ####[facility] Iggjmtlnhl1190 [place] [phone]. Farhat Leal Urea nitrogen/Creatinine [Mass ratio] 15.2 mg/mg Normal [facility] Comment on above: Performed By: #### P HOS, CMP ####[facility] Jdpcnunrtv116[address] [place], [place] [address]Dr. Farhat Leal PROTIMEon 12-29-2021 INR Coag (PPP) [Relative time] 1.26 {INR} Normal [facility] Comment on above: Performed By: #### P T ####[facility] Qogyalnira[address] [place], [place] [address]Dr. Farhat eLal INR GUIDELINES SEE BELOW Normal [facility] Comment on above: Result Comment: MALINA RED INR: 2.0 - 3.0 CONDITIONS NOT LISTED BELOW 2.5 - 3.5 FOR PROSTHETIC HEART VALVE REPLACEMENT 2.5 - 3.5 RECURRENT THROMBOSIS Performed By: #### P T ####[facility] Sgvdxordrc6[address] [place], [place] [address]Dr. Farhat Leal PT Coag (PPP) [Time] 13.4 s Critically high 9.0-11.6 [facility] Comment on above: Performed By: #### P T ####[facility] Gajbqdywlb105[address] [place], [place] [address]Dr. Farhat Leal XR MODIFIED BARIUM SWALLOWon 12-25-2021 XR MODIFIED BARIUM SWALLOW Normal [facility] FUNGAL CULTUREon 12-24-2021 Fungus (Mycology) Culture Final report Normal [facility] Comment on above: Performed By: #### C XFUN ####[facility] Lyrbmzyxyg53[address] [place] [address]Dr. Farhat Leal Fungus Stain Final report Normal [facility] Comment on above: Performed By: #### C XFUN ####[facility] Rntvqtbyci46[address] [place], [place] [address]Dr. Farhat Leal Result 1 Comment Normal [facility] Comment on above: Result Comment: ANNI/ Calcofluor preparation: no fungus observed. Performed By: #### C XFUN ####[facility] Dwlhmtplke[address] [place], [place] [address]Dr. Farhat Leal Result Comment: No y east or mold isolated after 4 weeks. VANCOMYCIN TROUGHon 12-21-19 VANCOMYCIN TROUGH 14.4 ug/ml Normal 5.0-20.0 [facility] Comment on above: Performed By: #### V ANCT ####[facility] Yhocfqurnb873[address] [place], [place] [address]Dr. Farhat Leal CBC AUTO DIFFon 12-14-2021 BASO # 0.0 103/ul Normal 0.0-0.1 [facility] Comment on above: Performed By: #### C BC ####[facility] Wkmdhvdzdj64[address] [place], [place] [address]Dr. Farhat Leal Basophils/100 WBC (Bld) 0.2 % Normal 0.2-2.0 [facility] Comment on above: Performed By: #### C BC ####[facility] G[address]ngfivwsn[address] [place], [place] [address]Dr. Farhat Leal EO # 0.2 103/ul Normal 0.0-0.7 [facility] Comment on above: Performed By: #### C BC ####[facility] Zrqcghlqkm439[address] [place], [place] [address]Dr. Farhat Leal Eosinophils/100 WBC (Bld) 2.1 % Normal 0.9-7.0 [facility] Comment on above: Performed By: #### C BC ####[facility] Wfmsjazyue29[address] [place], [place] [address]Dr. Farhat Leal Erythrocyte distribution width (RBC) [Ratio] 18.2 % Critically high 11.0-15.0 [facility] Comment on above: Performed By: #### C BC ####[facility] Dylkmftroc[address] [place] [address]Dr. Farhat Leal Hematocrit (Bld) [Volume fraction] 25.8 % Critically low 42.0-54.0 [facility] Comment on above: Performed By: #### C BC ####[facility] Xircuaomvt8719 [place] [address]Dr. Farhat Leal Hemoglobin (Bld) [Mass/Vol] 8.0 g/dL Critically low 14.0-18.0 [facility] Comment on above: Performed By: #### C BC ####[facility] Xvghetuqca148[address] [place], [place] [address]Dr. Farhat Leal IG # 0.08 10e3/ul Critically high 0.00-0.03 [facility] Comment on above: Performed By: #### C BC ####[facility] Yzpypiorwx[address] [place], [place] [address]Dr. Farhat Leal IG % 0.7 % Critically high 0.0-0.5 [facility] Comment on above: Performed By: #### C BC ####[facility] Wvrulgfala4[address] [place], [place] [address]DrSkylar Leal LYMPH # 0.9 103/ul Critically low 1.2-3.8 [facility] Comment on above: Performed By: #### C BC ####[facility] Ihaohdbabn[address] [place], [place] [address]DrSkylar Leal Lymphocytes/100 WBC (Bld) 8.7 % Critically low 20.5-60.0 [facility] Comment on above: Performed By: #### C BC ####[facility] Dlmclmacxd1050[address] [place], [place] [address]DrSkylar Leal MANUAL DIFF REQ NO Normal [facility] Comment on above: Performed By: #### C BC ####[facility] J[address]ckdirlc3639 [place] [address]DrSkylar Leal MCH (RBC) [Entitic mass] 30.0 pg Normal 25.9-34.0 [facility] Comment on above: Performed By: #### C BC ####[facility] Fnqpuviizt7988 [place] [id number]. Madelynlorri Elvis MCHC (RBC) [Mass/Vol] 31.0 g/dL Normal 29.9-35.2 [facility] Comment on above: Performed By: #### C BC ####[facility] Qimvdswwcb0142 [place] [address]DrSkylar Leal MCV (RBC) [Entitic vol] 96.6 fL Critically high 80.0-94.0 [facility] Comment on above: Performed By: #### C BC ####[facility] Wcmwoicttc364[address] [place], [place] [address]DrSkylar Leal MONO # 0.7 103/ul Normal 0.3-0.8 [facility] Comment on above: Performed By: #### C BC ####[facility] Hvoimmxrax246[address] [place], [place] [address]Dr. Farhat Leal Monocytes/100 WBC (Bld) 6.7 % Normal 1.7-12.0 [facility] Comment on above: Performed By: #### C BC ####[facility] Wmqgsbybbu80[address] [place], [place] [address]Dr. Farhat Leal NEUT # 8.8 103/ul Critically high 1.4-6.5 [facility] Comment on above: Performed By: #### C BC ####[facility] Vsujdanrqw406[address] [place], [place] [address]DrSkylar Leal Neutrophils/100 WBC (Bld) 81.6 % Critically high 43.0-75.0 [facility] Comment on above: Performed By: #### C BC ####[facility] Zlxcgapgia364[address] [place], [place] [address]DrSkylar Leal Platelet mean volume (Bld) [Entitic vol] 10.5 fL Normal 9.5-13.5 [facility] Comment on above: Performed By: #### C BC ####[facility] [address]tpsuvhxpw[address] [place], [place] [address]Dr. Farhat Leal PLT 285 103/ul Normal 150-450 [facility] Comment on above: Performed By: #### C BC ####[facility] Zuzzrseqzg65[address] [place] [address]Dr. Farhat Leal RBC 2.67 106/ul Critically low 4.70-6.10 [facility] Comment on above: Performed By: #### C BC ####[facility] Suk[address]ipu[address] [place] [address]Dr. Farhat Leal WBC 10.7 103/ul Normal 4.0-11.0 [facility] Comment on above: Performed By: #### C BC ####[facility] Ugaclzwzim[address] [place] [address]Dr. Farhat Leal PROF CHEM 8 (BAS METB)on Anion gap [Moles/Vol] 12.4 mmol/L Normal [facility] Comment on above: Performed By: #### B MP ####[facility] Mmxtujprde03[address] [place], [place] [address]Dr. Farhat Leal Calcium [Mass/Vol] 7.8 mg/dL Critically low 8.5-10.1 [facility] Comment on above: Performed By: #### B MP ####[facility] Hqvtxoqkqb[address] [place], [place] [address]Dr. Farhat Leal Chloride [Moles/Vol] 102 mmol/L Normal 98-107 [facility] Comment on above: Performed By: #### B MP ####[facility] Unxcfhuxhn006[address] [place], [place] [address]Dr. Farhat Leal CO2 [Moles/Vol] 28.1 mmol/L Normal 21.0-32.0 [facility] Comment on above: Performed By: #### B MP ####[facility] Ipmvdrcciq86[address] [place], [place] [address]Dr. Farhat Leal Creatinine [Mass/Vol] 1.24 mg/dL Normal 0.70-1.30 [facility] Comment on above: Performed By: #### B MP ####[facility] Oglrokveha[address] [place], [place] [address]Dr. Farhat Leal EGFR-AF [place] >60 Normal >=60 [facility] Comment on above: Performed By: #### B MP ####[facility] Zgxdosjctl14[address] [place] [id number]. Farhat Leal EGFR-NON AF [place] 57 mL/min/1.73m2 Critically low >=60 [facility] Comment on above: Performed By: #### B MP ####[facility] Zwouimshot549[address] [place] [id number]. Farhat Leal Glucose [Mass/Vol] 296 mg/dL Critically high 74-106 [facility] Comment on above: Performed By: #### B MP ####[facility] Bdmwvcksym9[address] [place] [address]Dr. Farhat Leal Potassium [Moles/Vol] 3.5 mmol/L Normal 3.5-5.1 [facility] Comment on above: Performed By: #### B MP ####[facility] [address] [place], [place] [address]Dr. Farhat Leal Sodium [Moles/Vol] 139 mmol/L Normal 136-145 [facility] Comment on above: Performed By: #### B MP ####[facility] Sbidehzbfw[address] [place], [place] [address]Dr. Farhat Leal Urea nitrogen [Mass/Vol] 27.0 mg/dL Critically high 7.0-18.0 [facility] Comment on above: Performed By: #### B MP ####[facility] [address]gbcs[address]pr[address] [place] [address]Dr. Farhat Leal Urea nitrogen/Creatinine [Mass ratio] 21.8 mg/mg Normal [facility] Comment on above: Performed By: #### B MP ####[facility] [address]ifhapan[address] [place] [id number]. Farhat Leal PROTIMEon 12-14-2021 INR Coag (PPP) [Relative time] 3.36 {INR} Normal [facility] Comment on above: Performed By: #### P T ####[facility] Bu[address]fegsolf[address] [place] [address]Dr. Farhat Leal INR GUIDELINES SEE BELOW Normal [facility] Comment on above: Result Comment: MALINA RED INR: 2.0 - 3.0 CONDITIONS NOT LISTED BELOW 2.5 - 3.5 FOR PROSTHETIC HEART VALVE REPLACEMENT 2.5 - 3.5 RECURRENT THROMBOSIS Performed By: #### P T ####[facility] Afoxyrufxp[address] [place], [place] [address]Ob. Farhat Leal PT Coag (PPP) [Time] 33.5 s Critically high 9.0-11.6 [facility] Comment on above: Performed By: #### P T ####[facility] Gkkutdtdng16[address] [place], [place] [address]Lm. Farhat Leal XR CHEST 1 Von 12-14-2021 XR CHEST 1 V Normal [facility] No Panel Informationon 12-01 BLANK _ [facility] Implant Date 04/22/2012 [facility] CHECKon AMS Duration (ms) 5 of 8 [facility] AMS Fallback Rate (bpm) DDIR [facility] AV Delay Adaptive Paced Minimum (ms) 300 ms [facility] AV Delay Adaptive Rate Maximum (bpm) 130 {beats}/min [facility] AV Delay Adaptive Rate Minimum (bpm) 70 {beats}/min [facility] AV Delay Adaptive Sensed Minimum (ms) 300 ms [facility] AV Delay Paced (ms) 300 ms [facility] AV Delay Sensed (ms) 300 ms [facility] Jaciel LV Pacing Polarity Unknown [facility] Jaciel LV Sensing Polarity Unknown [facility] Jaciel RA Pacing Amplitude (volts) 2.4 V [facility] Jaciel RA Pacing Polarity BI [facility] Jaciel RA Pacing Pulse Width (ms) 0.4 ms [facility] Jaciel RA Sensing Amplitude (mvolts) AUTO [facility] Jaciel RA Sensing Blanking Period (ms) 56 ms [facility] Jaciel RA Sensing Polarity BI [facility] Jaciel RA Sensing Refractory Period (ms) AUTO [facility] Jaciel RV Pacing Amplitude (volts) 3.4 V [facility] Jaciel RV Pacing Polarity BI [facility] Jaciel RV Pacing Pulse Width (ms) 0.4 ms [facility] Jaciel RV Sensing Amplitude (mvolts) AUTO [facility] Jaciel RV Sensing Blanking Period (ms) 30 ms [facility] Jaciel RV Sensing Polarity BI [facility] Jaciel RV Sensing Refractory Period (ms) 250 ms [facility] Hysteresis Rate (bpm) 60 {beats}/min [facility] Lead1 Mfg SUZETTE [facility] Lead2 Mfg SUZETTE [facility] Location RA [facility] Location RV [facility] Lower Rate (bpm) 60 {beats}/min [facility] Max Sensor Rate (bmp) 130 {beats}/min [facility] Model 513312 Monika CORTEZ [facility] Model 537787 [facility] Model 636175 [facility] Pacemaker Dependent? NO [facility] PM-Device Mfg BIO [facility] PM-PMT Intervention ON [facility] PM-PVC Intervention ON [facility] PM-Rate Modulation Acceleration Reaction 4 s [facility] PM-Rate Modulation Deceleration 0.5 m [facility] PM-Rate Modulation [place] 23 [facility] PM-Rate Modulation Threshold Medium [facility] RA Bipolar Impedance ohms 448 ohm [facility] Rhythm AF with controlled ventricular rate. [facility] RV Bipolar Impedance ohms 390 ohm [facility] Serial Number [id number] [facility] Serial Number [id number] [facility] Serial Number [id number] [facility] Thresh RA Sensing Amplitude (mvolts) 2.4 mV [facility] Thresh RV Capture Amplitude (volts) 1.8 V [facility] Thresh RV Capture Duration (ms) 0.4 ms [facility] Thresh RV Sensing Amplitude (mvolts) 2.4 mV [facility] Tracking Rate (bpm) 160 {beats}/min [facility] BNPon 11-28-2021 Natriuretic peptide B (Bld) [Mass/Vol] 36901.0 pg/mL Critically high <=1,800.0 [facility] Comment on above: Performed By: #### C MP, BNP, CRP ####[facility] [address]zgb[address]yd[address] [place] [address]Dr. Farhat Leal CBC AUTO DIFFon 11-28-2021 BASO # 0.0 103/ul Normal 0.0-0.1 [facility] Comment on above: Performed By: #### C BC ####[facility] Ojceiaaoni[address] [place] [address]Dr. Farhat Leal Basophils/100 WBC (Bld) 0.3 % Normal 0.2-2.0 [facility] Comment on above: Performed By: #### C BC ####[facility] Mpuopsnnsh75[address] [place] [id number]. Farhat Leal EO # 0.1 103/ul Normal 0.0-0.7 [facility] Comment on above: Performed By: #### C BC ####[facility] Vnmpuettvx0668 [place] [id number]. Farhat Leal Eosinophils/100 WBC (Bld) 1.0 % Normal 0.9-7.0 [facility] Comment on above: Performed By: #### C BC ####[facility] Osrbsrwlyy[address] [place], [place] [address]Dr. Farhat Leal Erythrocyte distribution width (RBC) [Ratio] 14.0 % Normal 11.0-15.0 [facility] Comment on above: Performed By: #### C BC ####[facility] Avwshtswcv[address] [place], [place] [address]Dr. Farhat Leal Hematocrit (Bld) [Volume fraction] 27.6 % Critically low 42.0-54.0 [facility] Comment on above: Performed By: #### C BC ####[facility] Iyzkzgktms13[address] [place], [place] [address]Dr. Farhat Leal Hemoglobin (Bld) [Mass/Vol] 9.0 g/dL Critically low 14.0-18.0 [facility] Comment on above: Performed By: #### C BC ####[facility] Mtjmhuammb7[address] [place], [place] [address]Dr. Farhat Leal IG # 0.12 10e3/ul Critically high 0.00-0.03 [facility] Comment on above: Performed By: #### C BC ####[facility] Yuzzxujlyl364[address] [place], [place] [address]Dr. Madelynlorri Leal IG % 1.0 % Critically high 0.0-0.5 [facility] Comment on above: Performed By: #### C BC ####[facility] Recrtkpbzc939[address] [place], [place] [address]Dr. Farhat Leal LYMPH # 1.2 103/ul Normal 1.2-3.8 [facility] Comment on above: Performed By: #### C BC ####[facility] Jlxuwaesui0997 [place] [id number]. Farhat Elvis Lymphocytes/100 WBC (Bld) 9.9 % Critically low 20.5-60.0 [facility] Comment on above: Performed By: #### C BC ####[facility] Kopsbybkxh3565 [place] [id number]. Farhat Leal MANUAL DIFF REQ NO Normal [facility] Comment on above: Performed By: #### C BC ####[facility] Zoexhencup4940 [place] [phone]. Farhat Leal MCH (RBC) [Entitic mass] 30.0 pg Normal 25.9-34.0 [facility] Comment on above: Performed By: #### C BC ####[facility] Zdzjrhsatj86[address] [place], [place] [address]Dr. Farhat Leal MCHC (RBC) [Mass/Vol] 32.6 g/dL Normal 29.9-35.2 [facility] Comment on above: Performed By: #### C BC ####[facility] Rzvcjdcbue[address] [place], [place] [id number]. Farhat Leal MCV (RBC) [Entitic vol] 92.0 fL Normal 80.0-94.0 [facility] Comment on above: Performed By: #### C BC ####[facility] Zaqqomcsun4[address] [place], [place] [address]Dr. Farhat Leal MONO # 1.1 103/ul Critically high 0.3-0.8 [facility] Comment on above: Performed By: #### C BC ####[facility] Vmfdhutwvw[address] [place], [place] [address]Dr. Farhat Leal Monocytes/100 WBC (Bld) 9.3 % Normal 1.7-12.0 [facility] Comment on above: Performed By: #### C BC ####[facility] Mtdgbqcwmc[address] [place], [place] [address]Dr. Farhat Leal NEUT # 9.3 103/ul Critically high 1.4-6.5 [facility] Comment on above: Performed By: #### C BC ####[facility] Hlmyztaemn[address] [place], [place] [address]Ko. Farhat Leal Neutrophils/100 WBC (Bld) 78.5 % Critically high 43.0-75.0 [facility] Comment on above: Performed By: #### C BC ####[facility] Vuqwqmisub4157 [place], [place] [address]Fm. Farhat Leal Platelet mean volume (Bld) [Entitic vol] 9.6 fL Normal 9.5-13.5 [facility] Comment on above: Performed By: #### C BC ####[facility] Qyrgnsgwkn1303 [place] [id number]. Farhat Elvis PLT 357 103/ul Normal 150-450 [facility] Comment on above: Performed By: #### C BC ####[facility] Dghpljcisr4039 [place] [phone]. Farhat Elvis RBC 3.00 106/ul Critically low 4.70-6.10 [facility] Comment on above: Performed By: #### C BC ####[facility] Mlylnjuaxo60[address] [place] [phone]. Farhat Leal WBC 11.8 103/ul Critically high 4.0-11.0 [facility] Comment on above: Performed By: #### C BC ####[facility] Alxaxorsif[address] [place], [place] [address]Br. Farhat Leal CRPon 11-28-2021 CRP 20.9 mg/dL Critically high <=1.0 [facility] Comment on above: Performed By: #### C MP, BNP, CRP ####[facility] Yqezbqytys55[address] [place], [place] [address]Dg. Farhat Elvis CULTURE OTHERon 11-28-2021 CULTURE OTHER Normal [facility] Comment on above: Performed By: #### O THCX ####[facility] Cfqigjqzrf9274 [place] [phone]. Farhat Leal PROF 14(COMP METB)on 022 Albumin [Mass/Vol] 1.4 g/dL Critically low 3.4-5.0 [facility] Comment on above: Performed By: #### C MP, BNP, CRP ####[facility] A[address]auhgekpb[address] [place] [address]Dr. Farhat Leal Albumin/Globulin [Mass ratio] 0.4 {ratio} Normal [facility] Comment on above: Performed By: #### C MP, BNP, CRP ####[facility] Ccoswrumxm[address]199 [place] [address]Dr. Farhat Leal ALP [Catalytic activity/Vol] 82 U/L Normal 46-116 [facility] Comment on above: Performed By: #### C MP, BNP, CRP ####[facility] Sfdunadpgm064[address] [place], [place] [address]Dr. Farhat Leal ALT [Catalytic activity/Vol] 20 U/L Normal 16-63 [facility] Comment on above: Performed By: #### C MP, BNP, CRP ####[facility] Sgnfvqffdl060[address] [place], [place] [address]Dr. Farhat Leal Anion gap [Moles/Vol] 13.0 mmol/L Normal [facility] Comment on above: Performed By: #### C MP, BNP, CRP ####[facility] Nuwohiklrj98[address] [place], [place] [address]Dr. Farhat Leal AST [Catalytic activity/Vol] 33 U/L Normal 15-37 [facility] Comment on above: Performed By: #### C MP, BNP, CRP ####[facility] Zndvawdgcz3924[address] [place], [place] [address]Dr. Farhat Leal Bilirubin [Mass/Vol] 0.7 mg/dL Normal 0.2-1.0 [facility] Comment on above: Performed By: #### C MP, BNP, CRP ####[facility] Ggvqptfidm455[address] [place], [place] [address]Dr. Farhat Leal Calcium [Mass/Vol] 8.4 mg/dL Critically low 8.5-10.1 [facility] Comment on above: Performed By: #### C MP, BNP, CRP ####[facility] Ejvxpqrrva29[address] [place] [address]Dr. Farhat Leal Chloride [Moles/Vol] 100 mmol/L Normal 98-107 [facility] Comment on above: Performed By: #### C MP, BNP, CRP ####[facility] Jmtzjyfefz2514[address] [place], [place] [address]Dr. Farhat Leal CO2 [Moles/Vol] 23.7 mmol/L Normal 21.0-32.0 [facility] Comment on above: Performed By: #### C MP, BNP, CRP ####[facility] Mltitllhpp050648 [address] [place], [place] [address]Dr. Farhat Leal Creatinine [Mass/Vol] 1.70 mg/dL Critically high 0.70-1.30 [facility] Comment on above: Performed By: #### C MP, BNP, CRP ####[facility] Pykiqkitjp289248 [address] [place], [place] [address]Dr. Farhat Elvis EGFR-AF [place] 48 mL/min/1.73m2 Critically low >=60 [facility] Comment on above: Performed By: #### C MP, BNP, CRP ####[facility] Bjtirrbulh588[address] [place], [place] [address]Dr. Farhat Leal EGFR-NON AF [place] 39 mL/min/1.73m2 Critically low >=60 [facility] Comment on above: Performed By: #### C MP, BNP, CRP ####[facility] Okndtcywdf7215[address] [place], [place] [address]Dr. Farhat Leal Globulin (S) [Mass/Vol] 3.6 g/dL Normal [facility] Comment on above: Performed By: #### C MP, BNP, CRP ####[facility] Capbrxeobo564[address] [place], [place] [address]Dr. Farhat Leal Glucose [Mass/Vol] 232 mg/dL Critically high 74-106 [facility] Comment on above: Performed By: #### C MP, BNP, CRP ####[facility] Zcrzmtnqjj209348 [address] [place], [place] [address]Dr. Farhat Leal Potassium [Moles/Vol] 3.7 mmol/L Normal 3.5-5.1 [facility] Comment on above: Performed By: #### C MP, BNP, CRP ####[facility] Yxrqexdwak3348 [place] [address]Dr. Farhat Leal Protein [Mass/Vol] 5.0 g/dL Critically low 6.4-8.2 [facility] Comment on above: Performed By: #### C MP, BNP, CRP ####[facility] Jaexzkqfyu5352 [place] [address]Dr. Farhat Leal Sodium [Moles/Vol] 133 mmol/L Critically low 136-145 Th [facility] Comment on above: Performed By: #### C MP, BNP, CRP ####[facility] Silubjrqzr2714[address] [place], [place] [address]Dr. Farhat Leal Urea nitrogen [Mass/Vol] 52.0 mg/dL Critically high 7.0-18.0 [facility] Comment on above: Performed By: #### C MP, BNP, CRP ####[facility] Hvuvxeulez3129[address] [place], [place] [address]Dr. Farhat Leal Urea nitrogen/Creatinine [Mass ratio] 30.6 mg/mg Normal [facility] Comment on above: Performed By: #### C MP, BNP, CRP ####[facility] Nvxqrdnmkd1934[address] [place], [place] [address]Dr. Farhat Leal PROTIMEon 11-28-2021 INR Coag (PPP) [Relative time] 1.29 {INR} Normal [facility] Comment on above: Performed By: #### P T ####[facility] Gvqplicxjt8029[address] [place], [place] [address]Dr. Farhat Leal INR GUIDELINES SEE BELOW Normal [facility] Comment on above: Result Comment: MALINA RED INR: 2.0 - 3.0 CONDITIONS NOT LISTED BELOW 2.5 - 3.5 FOR PROSTHETIC HEART VALVE REPLACEMENT 2.5 - 3.5 RECURRENT THROMBOSIS Performed By: #### P T ####[facility] Quhifkhgio3213[address] [place], [place] [address]Dr. Farhat Leal PT Coag (PPP) [Time] 13.7 s Critically high 9.0-11.6 [facility] Comment on above: Performed By: #### P T ####[facility] Gdornoknxh[address] [place] [address]Dr. Farhat Leal SED RATE WESTERGRENon 2021 SED RATE 77 mm/hr Critically high <=20 [facility] Comment on above: Performed By: #### S EDR ####[facility] Etpqgwikie089[address] [place], [place] [address]Dr. Farhat Leal XR CHEST 2 Von 11-28-2021 XR CHEST 2 V Normal [facility] BNPon 11-27-2021 Natriuretic peptide B (Bld) [Mass/Vol] 61289.0 pg/mL Critically high <=1,800.0 [facility] Comment on above: Performed By: #### B SOLUTIONS ARCHITECT CONSULTANT, CMP, CRP ####[facility] Dhczilgrzr5787[address] [place], [place] [address]Dr. Farhat Leal CBC AUTO DIFFon 11-27-2021 BASO # 0.0 103/ul Normal 0.0-0.1 [facility] Comment on above: Performed By: #### C BC ####[facility] Jiltiyazzk28[address] [place], [place] [address]Dr. Farhat Elvis Basophils/100 WBC (Bld) 0.2 % Normal 0.2-2.0 [facility] Comment on above: Performed By: #### C BC ####[facility] Idphjxnssa[address] [place], [place] [address]Dr. Farhat Leal EO # 0.2 103/ul Normal 0.0-0.7 [facility] Comment on above: Performed By: #### C BC ####[facility] Cjfednbnfo166[address] [place], [place] [address]Dr. Farhat Leal Eosinophils/100 WBC (Bld) 1.9 % Normal 0.9-7.0 [facility] Comment on above: Performed By: #### C BC ####[facility] Ucjptvomhr385[address] [place], [place] [address]Dr. Farhat Leal Erythrocyte distribution width (RBC) [Ratio] 13.9 % Normal 11.0-15.0 [facility] Comment on above: Performed By: #### C BC ####[facility] Mgtupugzum[address] [place] [address]Dr. Farhat Leal Hematocrit (Bld) [Volume fraction] 28.7 % Critically low 42.0-54.0 [facility] Comment on above: Performed By: #### C BC ####[facility] Riebudzovp[address] [place] [address]Dr. Farhat Leal Hemoglobin (Bld) [Mass/Vol] 9.3 g/dL Critically low 14.0-18.0 [facility] Comment on above: Performed By: #### C BC ####[facility] Liwrlqdsko3636 [place] [address]Dr. Farhat Leal IG # 0.14 10e3/ul Critically high 0.00-0.03 [facility] Comment on above: Performed By: #### C BC ####[facility] Izhjzedbev7[address] [place], [place] [address]Dr. Farhat Elvis IG % 1.2 % Critically high 0.0-0.5 [facility] Comment on above: Performed By: #### C BC ####[facility] Pydevdybpf757[address] [place], [place] [address]DrSkylar Farhat Leal LYMPH # 1.1 103/ul Critically low 1.2-3.8 [facility] Comment on above: Performed By: #### C BC ####[facility] Zervaudjyj[address] [place] [address]DrSkylar Farhat Elvis Lymphocytes/100 WBC (Bld) 9.4 % Critically low 20.5-60.0 [facility] Comment on above: Performed By: #### C BC ####[facility] Uhciplwkmo6[address] [place] [address]DrSkylar Madelynlorri Leal MANUAL DIFF REQ NO Normal [facility] Comment on above: Performed By: #### C BC ####[facility] Zphlvfxcnk1583 [place] [address]DrSkylar Madelynlorri Leal MCH (RBC) [Entitic mass] 29.7 pg Normal 25.9-34.0 [facility] Comment on above: Performed By: #### C BC ####[facility] Bxuivnddbc2946 [place] [phone]. Farhat Leal MCHC (RBC) [Mass/Vol] 32.4 g/dL Normal 29.9-35.2 [facility] Comment on above: Performed By: #### C BC ####[facility] Dwinolbeuo9115 [place] [phone] Farhat Elvis MCV (RBC) [Entitic vol] 91.7 fL Normal 80.0-94.0 [facility] Comment on above: Performed By: #### C BC ####[facility] Rqatpicvnq4539 [place] [id number] Leal MONO # 1.1 103/ul Critically high 0.3-0.8 [facility] Comment on above: Performed By: #### C BC ####[facility] Lzezfvehjy[address] [place], [place] [address]DrSkylar Leal Monocytes/100 WBC (Bld) 9.7 % Normal 1.7-12.0 [facility] Comment on above: Performed By: #### C BC ####[facility] J[address]qenhlywi[address] [place], [place] [address]DrSkylar Joshilorri Elvis NEUT # 9.2 103/ul Critically high 1.4-6.5 [facility] Comment on above: Performed By: #### C BC ####[facility] Wepxuetfcm[address] [place], [place] [address]DrSkylar Leal Neutrophils/100 WBC (Bld) 77.6 % Critically high 43.0-75.0 [facility] Comment on above: Performed By: #### C BC ####[facility] Mdmvinwtur9994 [place] [id number] Leal Platelet mean volume (Bld) [Entitic vol] 9.5 fL Normal 9.5-13.5 [facility] Comment on above: Performed By: #### C BC ####[facility] Vvzynrnpau1630 [place] [id number] Leal PLT 375 103/ul Normal 150-450 [facility] Comment on above: Performed By: #### C BC ####[facility] Xzlccfnhav9598 [place] [phone]. Farhat Leal RBC 3.13 106/ul Critically low 4.70-6.10 [facility] Comment on above: Performed By: #### C BC ####[facility] Jerwegpjhk6918 [place] [phone]. Farhat Leal WBC 11.8 103/ul Critically high 4.0-11.0 [facility] Comment on above: Performed By: #### C BC ####[facility] Ifxogdfljy1858 [place], [place] [address]Kh. Farhat Leal CRPon 11-27-2021 CRP 24.5 mg/dL Critically high <=1.0 [facility] Comment on above: Performed By: #### B SOLUTIONS ARCHITECT CONSULTANT, CMP, CRP ####[facility] Mmsfrepgpm9314 [place] [phone]. Farhat Leal CULTURE OTHERon 11-27-2021 CULTURE OTHER Normal [facility] Comment on above: Performed By: #### O THCX ####[facility] Rbhlihjuzr2119 [place] [phone]. Farhat Leal CULTURE WOUNDon 11-27-2021 CULTURE WOUND Normal [facility] Comment on above: Performed By: #### W OUNDCX ####[facility] Zxdvdyfxmb7279 [place] [phone]. Farhat Elvis POINT OF CARE GLUCOSEon 11-15 Glucose [Mass/Vol] 147 mg/dL Critically high 74-106 [facility] Comment on above: Performed By: #### P OCGLUC ####[facility] Tnrihwrapg3002 [place] [phone]. Madelynlorri Leal PROF 14(COMP METB)on 022 Albumin [Mass/Vol] 1.4 g/dL Critically low 3.4-5.0 [facility] Comment on above: Performed By: #### B SOLUTIONS ARCHITECT CONSULTANT, CMP, CRP ####[facility] Xoxhcgkmiu4817 [place] [phone]. Farhat Leal Albumin/Globulin [Mass ratio] 0.4 {ratio} Normal [facility] Comment on above: Performed By: #### B SOLUTIONS ARCHITECT CONSULTANT, CMP, CRP ####[facility] Ltwuzucese[address] [place] [address]Dr. Farhat Leal ALP [Catalytic activity/Vol] 82 U/L Normal 46-116 [facility] Comment on above: Performed By: #### B SOLUTIONS ARCHITECT CONSULTANT, CMP, CRP ####[facility] Edtdpsdjub29[address] [place], [place] [address]Dr. Farhat Leal ALT [Catalytic activity/Vol] 22 U/L Normal 16-63 [facility] Comment on above: Performed By: #### B SOLUTIONS ARCHITECT CONSULTANT, CMP, CRP ####[facility] Lmergbouew8[address] [place], [place] [address]Dr. Farhat Leal Anion gap [Moles/Vol] 14.2 mmol/L Normal [facility] Comment on above: Performed By: #### B SOLUTIONS ARCHITECT CONSULTANT, CMP, CRP ####[facility] Romrlkidmi5[address] [place], [place] [address]Dr. Farhat Elvis AST [Catalytic activity/Vol] 35 U/L Normal 15-37 [facility] Comment on above: Performed By: #### B SOLUTIONS ARCHITECT CONSULTANT, CMP, CRP ####[facility] Fwnyhjwaxh[address] [place], [place] [address]Dr. Farhat Leal Bilirubin [Mass/Vol] 0.7 mg/dL Normal 0.2-1.0 [facility] Comment on above: Performed By: #### B SOLUTIONS ARCHITECT CONSULTANT, CMP, CRP ####[facility] Yuhiihyvfh[address] [place], [place] [address]Dr. Farhat Leal Calcium [Mass/Vol] 8.2 mg/dL Critically low 8.5-10.1 [facility] Comment on above: Performed By: #### B SOLUTIONS ARCHITECT CONSULTANT, CMP, CRP ####[facility] Uthekgtknb33[address] [place] [address]Dr. Farhat Leal Chloride [Moles/Vol] 99 mmol/L Normal 98-107 [facility] Comment on above: Performed By: #### B SOLUTIONS ARCHITECT CONSULTANT, CMP, CRP ####[facility] Jbgeorgsje6212 [place] [id number]. Farhat Leal CO2 [Moles/Vol] 22.6 mmol/L Normal 21.0-32.0 [facility] Comment on above: Performed By: #### B SOLUTIONS ARCHITECT CONSULTANT, CMP, CRP ####[facility] Vgjqnqvcnx9[address] [place] [address]Dr. Farhat Leal Creatinine [Mass/Vol] 1.73 mg/dL Critically high 0.70-1.30 [facility] Comment on above: Performed By: #### B SOLUTIONS ARCHITECT CONSULTANT, CMP, CRP ####[facility] Msqzsdzcbn87[address] [place] [address]Dr. Farhat Leal EGFR-AF [place] 47 mL/min/1.73m2 Critically low >=60 [facility] Comment on above: Performed By: #### B SOLUTIONS ARCHITECT CONSULTANT, CMP, CRP ####[facility] [address]ty[address] [place] [address]Dr. Farhat Leal EGFR-NON AF [place] 38 mL/min/1.73m2 Critically low >=60 [facility] Comment on above: Performed By: #### B SOLUTIONS ARCHITECT CONSULTANT, CMP, CRP ####[facility] Bjjfj[address]qhcy[address] [place] [address]Dr. Farhat Leal Globulin (S) [Mass/Vol] 3.7 g/dL Normal [facility] Comment on above: Performed By: #### B SOLUTIONS ARCHITECT CONSULTANT, CMP, CRP ####[facility] Eukx[address]zem[address] [place] [address]Dr. Farhat Leal Glucose [Mass/Vol] 220 mg/dL Critically high 74-106 T [facility] Comment on above: Performed By: #### B SOLUTIONS ARCHITECT CONSULTANT, CMP, CRP ####[facility] Cstrfbvyqp68[address] [place] [address]Dr. Farhat Leal Potassium [Moles/Vol] 3.8 mmol/L Normal 3.5-5.1 [facility] Comment on above: Performed By: #### B SOLUTIONS ARCHITECT CONSULTANT, CMP, CRP ####[facility] Ixkrtordlv[address] [place] [address]Dr. Farhat Leal Protein [Mass/Vol] 5.1 g/dL Critically low 6.4-8.2 Th [facility] Comment on above: Performed By: #### B SOLUTIONS ARCHITECT CONSULTANT, CMP, CRP ####[facility] Psdftcobob[address] [place] [address]Dr. Farhat Leal Sodium [Moles/Vol] 132 mmol/L Critically low 136-145 Th [facility] Comment on above: Performed By: #### B SOLUTIONS ARCHITECT CONSULTANT, CMP, CRP ####[facility] S[address]edndbq[address] [place], [place] [address]Dr. Farhat Leal Urea nitrogen [Mass/Vol] 49.0 mg/dL Critically high 7.0-18.0 [facility] Comment on above: Performed By: #### B SOLUTIONS ARCHITECT CONSULTANT, CMP, CRP ####[facility] Jxgnxiyvvr94[address] [place], [place] [address]Dr. Farhat Leal Urea nitrogen/Creatinine [Mass ratio] 28.3 mg/mg Normal [facility] Comment on above: Performed By: #### B SOLUTIONS ARCHITECT CONSULTANT, CMP, CRP ####[facility] Iyeqlsnnaz[address] [place], [place] [address]Dr. Farhat Leal PROTIMEon 11-27-2021 INR Coag (PPP) [Relative time] 1.25 {INR} Normal [facility] Comment on above: Performed By: #### P T ####[facility] Hgchksfpmu04[address] [place], [place] [address]Dr. Farhat Leal INR GUIDELINES SEE BELOW Normal The [facility] Comment on above: Result Comment: MALINA RED INR: 2.0 - 3.0 CONDITIONS NOT LISTED BELOW 2.5 - 3.5 FOR PROSTHETIC HEART VALVE REPLACEMENT 2.5 - 3.5 RECURRENT THROMBOSIS Performed By: #### P T ####[facility] Yiunofrtwo822[address] [place], [place] [address]Dr. Farhat Leal PT Coag (PPP) [Time] 13.3 s Critically high 9.0-11.6 [facility] Comment on above: Performed By: #### P T ####[facility] Dzaazclizj7[address] [place], [place] [address]DrSkylar Leal SED RATE [facility] 2021 SED RATE 60 mm/hr Critically high <=20 The [facility] Comment on above: Performed By: #### S EDR ####[facility] Isxsmbuzdf6677[address] [place], [place] [address]Dr. Farhat Elvis VANCOMYCIN TROUGHon 11-28-19 VANCOMYCIN TROUGH 21.2 ug/ml Critically high 5.0-20.0 Th e [facility] Comment on above: Performed By: #### V ANCT ####[facility] Jdxvubpunv501[address] [place], [place] [address]Dr. Farhat Elvis XR CHEST 1 Von 11-27-2021 XR CHEST 1 V Normal [facility] BNPon 11-26-2021 Natriuretic peptide B (Bld) [Mass/Vol] 41617.0 pg/mL Critically high <=1,800.0 [facility] Comment on above: Performed By: #### B SOLUTIONS ARCHITECT CONSULTANT, CRP, CMP ####[facility] Zrzufwfhpc[address] [place], [place] [address]Dr. Madelynlorri Leal CBC AUTO DIFFon 11-26-2021 BASO # 0.0 103/ul Normal 0.0-0.1 [facility] Comment on above: Performed By: #### C BC ####[facility] Tiwdqqxujh4330[address] [place], [place] [address]Dr. Farhat Leal Basophils/100 WBC (Bld) 0.2 % Normal 0.2-2.0 [facility] Comment on above: Performed By: #### C BC ####[facility] Ldrzarhoyg848[address] [place], [place] [address]Dr. Farhat Leal EO # 0.0 103/ul Normal 0.0-0.7 [facility] Comment on above: Performed By: #### C BC ####[facility] Kkzoscljhx735[address] [place], [place] [address]Dr. Farhat Leal Eosinophils/100 WBC (Bld) 0.3 % Critically low 0.9-7.0 [facility] Comment on above: Performed By: #### C BC ####[facility] Nglusjdomz3927[address] [place], [place] [address]DrSkylar Leal Erythrocyte distribution width (RBC) [Ratio] 13.9 % Normal 11.0-15.0 [facility] Comment on above: Performed By: #### C BC ####[facility] Ejujpqcwte[address] [place] [address]DrSkylar Leal Hematocrit (Bld) [Volume fraction] 27.3 % Critically low 42.0-54.0 [facility] Comment on above: Performed By: #### C BC ####[facility] Tmnjjgvdyf8280[address] [place], [place] [address]DrSkylar Leal Hemoglobin (Bld) [Mass/Vol] 8.8 g/dL Critically low 14.0-18.0 [facility] Comment on above: Performed By: #### C BC ####[facility] Aoihyzpuaa74[address] [place], [place] [address]DrSkylar Leal IG # 0.17 10e3/ul Critically high 0.00-0.03 [facility] Comment on above: Performed By: #### C BC ####[facility] Fwnusgetqe0469[address] [place], [place] [address]DrSkylar Leal IG % 1.2 % Critically high 0.0-0.5 [facility] Comment on above: Performed By: #### C BC ####[facility] Ldwmnxkqit3147[address] [place], [place] [address]DrSkylar Leal LYMPH # 0.7 103/ul Critically low 1.2-3.8 The [facility] Comment on above: Performed By: #### C BC ####[facility] Lxlbfhaquu345[address] [place], [place] [address]DrSkylar Leal Lymphocytes/100 WBC (Bld) 4.8 % Critically low 20.5-60.0 [facility] Comment on above: Performed By: #### C BC ####[facility] Riuvhonpkh246[address] [place], [place] [address]DrSkylar Leal MANUAL DIFF REQ NO Normal [facility] Comment on above: Performed By: #### C BC ####[facility] Vowbmabbcf684[address] [place], [place] [address]DrSkylar Leal MCH (RBC) [Entitic mass] 29.9 pg Normal 25.9-34.0 [facility] Comment on above: Performed By: #### C BC ####[facility] Jfylcuznho[address] [place] [address]Dr. Farhat Leal MCHC (RBC) [Mass/Vol] 32.2 g/dL Normal 29.9-35.2 [facility] Comment on above: Performed By: #### C BC ####[facility] Mqlbphjaxg79[address] [place] [address]DrSkylar Leal MCV (RBC) [Entitic vol] 92.9 fL Normal 80.0-94.0 [facility] Comment on above: Performed By: #### C BC ####[facility] Cacsktfbev722[address] [place], [place] [address]DrSkylar Leal MONO # 1.3 103/ul Critically high 0.3-0.8 [facility] Comment on above: Performed By: #### C BC ####[facility] Ucennigjsx39[address] [place], [place] [address]Dr. Farhat Leal Monocytes/100 WBC (Bld) 9.6 % Normal 1.7-12.0 [facility] Comment on above: Performed By: #### C BC ####[facility] Hefxdfhdni2538[address] [place], [place] [address]DrSkylar Leal NEUT # 11.4 103/ul Critically high 1.4-6.5 The [facility] Comment on above: Performed By: #### C BC ####[facility] Rcebbihwkq076[address] [place], [place] [address]DrSkylar Leal Neutrophils/100 WBC (Bld) 83.9 % Critically high 43.0-75.0 [facility] Comment on above: Performed By: #### C BC ####[facility] Dajtkgxiqx30[address] [place], [place] [address]DrSkylar Leal Platelet mean volume (Bld) [Entitic vol] 9.6 fL Normal 9.5-13.5 [facility] Comment on above: Performed By: #### C BC ####[facility] Wawkrvnkki864[address] [place], [place] [address]Dr. Farhat Leal PLT 395 103/ul Normal 150-450 [facility] Comment on above: Performed By: #### C BC ####[facility] Fuf[address]fwbpj[address] [place] [address]Dr. Farhat Leal RBC 2.94 106/ul Critically low 4.70-6.10 [facility] Comment on above: Performed By: #### C BC ####[facility] Xebcwrlfbw42[address] [place] [address]Dr. Farhat Leal WBC 13.6 103/ul Critically high 4.0-11.0 [facility] Comment on above: Performed By: #### C BC ####[facility] Wdogqqvwhi24[address] [place] [address]Dr. Farhat Leal CRPon 11-26-2021 CRP [Mass/Vol] mg/L Critically high <=1.0 [facility] Comment on above: Performed By: #### B SOLUTIONS ARCHITECT CONSULTANT, CRP, CMP ####[facility] [address]tfpmta[address] [place] [address]Dr. Farhat Leal PROF 14(COMP METB)on 022 Albumin [Mass/Vol] 1.5 g/dL Critically low 3.4-5.0 [facility] Comment on above: Performed By: #### B SOLUTIONS ARCHITECT CONSULTANT, CRP, CMP ####[facility] Rurnbxnxef7[address] [place] [address]Dr. Farhat Leal Albumin/Globulin [Mass ratio] 0.4 {ratio} Normal [facility] Comment on above: Performed By: #### B SOLUTIONS ARCHITECT CONSULTANT, CRP, CMP ####[facility] Unvikcfwma[address] [place] [address]Dr. Farhat Leal ALP [Catalytic activity/Vol] 88 U/L Normal 46-116 [facility] Comment on above: Performed By: #### B SOLUTIONS ARCHITECT CONSULTANT, CRP, CMP ####[facility] Kbhreqisdj[address] [place] [address]Dr. Farhat Leal ALT [Catalytic activity/Vol] 29 U/L Normal 16-63 [facility] Comment on above: Performed By: #### B SOLUTIONS ARCHITECT CONSULTANT, CRP, CMP ####[facility] Cthplilszh[address] [place] [address]Dr. Farhat Leal Anion gap [Moles/Vol] 13.3 mmol/L Normal [facility] Comment on above: Performed By: #### B SOLUTIONS ARCHITECT CONSULTANT, CRP, CMP ####[facility] Fwtzdjjwfv4[address] [place] [address]Dr. Farhat Leal AST [Catalytic activity/Vol] 32 U/L Normal 15-37 [facility] Comment on above: Performed By: #### B SOLUTIONS ARCHITECT CONSULTANT, CRP, CMP ####[facility] Dwxqodqkwk35[address] [place] [address]Dr. Farhat Leal Bilirubin [Mass/Vol] 0.6 mg/dL Normal 0.2-1.0 [facility] Comment on above: Performed By: #### B SOLUTIONS ARCHITECT CONSULTANT, CRP, CMP ####[facility] Sbgeuqbvao20[address] [place], [place] [address]Dr. Farhat Leal Calcium [Mass/Vol] 8.0 mg/dL Critically low 8.5-10.1 [facility] Comment on above: Performed By: #### B SOLUTIONS ARCHITECT CONSULTANT, CRP, CMP ####[facility] Ehlwxzvnon6416[address] [place], [place] [address]Dr. Farhat Leal Chloride [Moles/Vol] 98 mmol/L Normal 98-107 [facility] Comment on above: Performed By: #### B SOLUTIONS ARCHITECT CONSULTANT, CRP, CMP ####[facility] Ddvhiatwak580[address] [place], [place] [address]Dr. Farhat Leal CO2 [Moles/Vol] 23.7 mmol/L Normal 21.0-32.0 [facility] Comment on above: Performed By: #### B SOLUTIONS ARCHITECT CONSULTANT, CRP, CMP ####[facility] Xgrcyyayxb5097[address] [place], [place] [address]Dr. Farhat Leal Creatinine [Mass/Vol] 2.08 mg/dL Critically high 0.70-1.30 [facility] Comment on above: Performed By: #### B SOLUTIONS ARCHITECT CONSULTANT, CRP, CMP ####[facility] Phikrabvhv[address] [place] [address]Dr. Farhat Lael EGFR-AF [place] 38 mL/min/1.73m2 Critically low >=60 [facility] Comment on above: Performed By: #### B SOLUTIONS ARCHITECT CONSULTANT, CRP, CMP ####[facility] Qidggvnelb5434[address] [place], [place] [address]Dr. Farhat Leal EGFR-NON AF [place] 31 mL/min/1.73m2 Critically low >=60 [facility] Comment on above: Performed By: #### B SOLUTIONS ARCHITECT CONSULTANT, CRP, CMP ####[facility] Vknzcsixja8409[address] [place], [place] [address]Dr. Farhat Leal Globulin (S) [Mass/Vol] 3.7 g/dL Normal [facility] Comment on above: Performed By: #### B SOLUTIONS ARCHITECT CONSULTANT, CRP, CMP ####[facility] Eglplksexv7609[address] [place], [place] [address]Dr. Farhat Leal Glucose [Mass/Vol] 315 mg/dL Critically high 74-106 T [facility] Comment on above: Performed By: #### B SOLUTIONS ARCHITECT CONSULTANT, CRP, CMP ####[facility] Aegfkoyprc222[address] [place], [place] [address]Dr. Farhat Leal Potassium [Moles/Vol] 4.0 mmol/L Normal 3.5-5.1 [facility] Comment on above: Performed By: #### B SOLUTIONS ARCHITECT CONSULTANT, CRP, CMP ####[facility] Hhdzvuzmsd0840[address] [place], [place] [address]Dr. Farhat Leal Protein [Mass/Vol] 5.2 g/dL Critically low 6.4-8.2 Th [facility] Comment on above: Performed By: #### B SOLUTIONS ARCHITECT CONSULTANT, CRP, CMP ####[facility] Yamwremxsm6597[address] [place], [place] [address]Dr. Farhat Leal Sodium [Moles/Vol] 131 mmol/L Critically low 136-145 Th [facility] Comment on above: Performed By: #### B SOLUTIONS ARCHITECT CONSULTANT, CRP, CMP ####[facility] Jghqtcvxas9758[address] [place], [place] [address]Dr. Farhat Leal Urea nitrogen [Mass/Vol] 50.0 mg/dL Critically high 7.0-18.0 [facility] Comment on above: Performed By: #### B SOLUTIONS ARCHITECT CONSULTANT, CRP, CMP ####[facility] Zeuazgvgab72[address] [place] [address]Dr. Farhat Leal Urea nitrogen/Creatinine [Mass ratio] 24.0 mg/mg Normal [facility] Comment on above: Performed By: #### B SOLUTIONS ARCHITECT CONSULTANT, CRP, CMP ####[facility] Akavhuaafu[address] [place] [address]Dr. Farhat Leal PROTIMEon 11-26-2021 INR Coag (PPP) [Relative time] 1.31 {INR} Normal [facility] Comment on above: Performed By: #### P T ####[facility] Qptzwzlamg1185[address] [place], [place] [address]Dr. Farhat Leal INR GUIDELINES SEE BELOW Normal [facility] Comment on above: Result Comment: MALINA RED INR: 2.0 - 3.0 CONDITIONS NOT LISTED BELOW 2.5 - 3.5 FOR PROSTHETIC HEART VALVE REPLACEMENT 2.5 - 3.5 RECURRENT THROMBOSIS Performed By: #### P T ####[facility] Zmwbwjjzjg[address] [place], [place] [address]Dr. Farhat Leal PT Coag (PPP) [Time] 13.9 s Critically high 9.0-11.6 [facility] Comment on above: Performed By: #### P T ####[facility] Ltxvcwztig8[address] [place], [place] [address]Dr. Farhat Leal SED RATE HOPEERGREN 2021 SED RATE 87 mm/hr Critically high <=20 [facility] Comment on above: Performed By: #### S EDR ####[facility] Tfarpsrsid0714[address] [place], [place] [address]Dr. Farhat Leal BNPon 11-25-2021 Natriuretic peptide B (Bld) [Mass/Vol] 93957.0 pg/mL Critically high <=1,800.0 [facility] Comment on above: Performed By: #### C MP, BNP, CRP ####[facility] Yhqfvrpfsj[address] [place], [place] [address]Dr. Farhat Leal CBC AUTO DIFFon 11-25-2021 BASO # 0.0 103/ul Normal 0.0-0.1 [facility] Comment on above: Performed By: #### C BC ####[facility] [address] [place] [id number]. Farhat Leal Basophils/100 WBC (Bld) 0.4 % Normal 0.2-2.0 [facility] Comment on above: Performed By: #### C BC ####[facility] Noqevowvkg[address] [place] [address]Dr. Farhat Leal EO # 0.1 103/ul Normal 0.0-0.7 [facility] Comment on above: Performed By: #### C BC ####[facility] Nxfiobbacz0027[address] [place], [place] [address]Dr. Farhat Leal Eosinophils/100 WBC (Bld) 1.2 % Normal 0.9-7.0 [facility] Comment on above: Performed By: #### C BC ####[facility] Zsqglinnsv3715[address] [place], [place] [address]Dr. Farhat Leal Erythrocyte distribution width (RBC) [Ratio] 13.7 % Normal 11.0-15.0 [facility] Comment on above: Performed By: #### C BC ####[facility] Bexejiulen425[address] [place], [place] [address]Dr. Farhat Leal Hematocrit (Bld) [Volume fraction] 29.6 % Critically low 42.0-54.0 [facility] Comment on above: Performed By: #### C BC ####[facility] Oiqspjixic98[address] [place], [place] [address]Dr. Farhat Leal Hemoglobin (Bld) [Mass/Vol] 9.3 g/dL Critically low 14.0-18.0 [facility] Comment on above: Performed By: #### C BC ####[facility] Inltsqrusc5040[address] [place], [place] [address]Dr. Farhat Leal IG # 0.15 10e3/ul Critically high 0.00-0.03 [facility] Comment on above: Performed By: #### C BC ####[facility] Evixqxevpz4[address] [place], [place] [address]Dr. Farhat Leal IG % 1.4 % Critically high 0.0-0.5 [facility] Comment on above: Performed By: #### C BC ####[facility] C[address]znoxnnbc[address] [place] [address]Dr. Farhat Leal LYMPH # 0.8 103/ul Critically low 1.2-3.8 [facility] Comment on above: Performed By: #### C BC ####[facility] Dfikvlsxfd8304 [place] [address]Dr. Farhat Leal Lymphocytes/100 WBC (Bld) 7.3 % Critically low 20.5-60.0 [facility] Comment on above: Performed By: #### C BC ####[facility] Sakeworxap[address] [place] [address]Dr. Farhat Leal MANUAL DIFF REQ NO Normal [facility] Comment on above: Performed By: #### C BC ####[facility] Kzbflvoumi[address] [place], [place] [address]Dr. Farhat Leal MCH (RBC) [Entitic mass] 29.3 pg Normal 25.9-34.0 [facility] Comment on above: Performed By: #### C BC ####[facility] Unjsrwmekc[address] [place], [place] [address]Dr. Farhat Leal MCHC (RBC) [Mass/Vol] 31.4 g/dL Normal 29.9-35.2 [facility] Comment on above: Performed By: #### C BC ####[facility] Ilvnjvhwfu[address] [place] [address]Dr. Farhat Leal MCV (RBC) [Entitic vol] 93.4 fL Normal 80.0-94.0 [facility] Comment on above: Performed By: #### C BC ####[facility] Xriqfcqupj[address] [place], [place] [address]Dr. Farhat Leal MONO # 1.3 103/ul Critically high 0.3-0.8 [facility] Comment on above: Performed By: #### C BC ####[facility] Anvzsvobsi[address] [place] [id number]. Farhat Leal Monocytes/100 WBC (Bld) 12.3 % Critically high 1.7-12.0 [facility] Comment on above: Performed By: #### C BC ####[facility] Fxwwiouuvb[address] [place] [address]Dr. Madelynlorri Leal NEUT # 8.4 103/ul Critically high 1.4-6.5 [facility] Comment on above: Performed By: #### C BC ####[facility] Hbxtjjrtoy6692 [place] [address]DrSkylar Leal Neutrophils/100 WBC (Bld) 77.4 % Critically high 43.0-75.0 [facility] Comment on above: Performed By: #### C BC ####[facility] Spoempvufg34[address] [place] [address]DrSkylar Leal Platelet mean volume (Bld) [Entitic vol] 9.8 fL Normal 9.5-13.5 [facility] Comment on above: Performed By: #### C BC ####[facility] Pednsttcze8[address] [place], [place] [address]Dr. Farhat Leal PLT 390 103/ul Normal 150-450 [facility] Comment on above: Performed By: #### C BC ####[facility] Qbwqnyfuiv90[address] [place], [place] [address]Dr. Farhat Leal RBC 3.17 106/ul Critically low 4.70-6.10 [facility] Comment on above: Performed By: #### C BC ####[facility] P[address]jdikxhg[address] [place] [address]DrSkylar Leal WBC 10.9 103/ul Normal 4.0-11.0 [facility] Comment on above: Performed By: #### C BC ####[facility] Eimgmealzp[address] [place] [id number] Leal CRPon 11-25-2021 CRP 27.2 mg/dL Critically high <=1.0 [facility] Comment on above: Performed By: #### C MP, BNP, CRP ####[facility] Mpxubockjg[address] [place] [address]DrSkylar Leal PROF 14(COMP METB)on 022 Albumin [Mass/Vol] 1.5 g/dL Critically low 3.4-5.0 [facility] Comment on above: Performed By: #### C MP, BNP, CRP ####[facility] Seneemqhbz26[address] [place] [address]Dr. Farhat Leal Albumin/Globulin [Mass ratio] 0.4 {ratio} Normal [facility] Comment on above: Performed By: #### C MP, BNP, CRP ####[facility] Wkpgwxrzug8344 [place] [address]Dr. Farhat Leal ALP [Catalytic activity/Vol] 86 U/L Normal 46-116 [facility] Comment on above: Performed By: #### C MP, BNP, CRP ####[facility] Msvmaadxct94[address] [place] [address]Dr. Farhat Leal ALT [Catalytic activity/Vol] 34 U/L Normal 16-63 [facility] Comment on above: Performed By: #### C MP, BNP, CRP ####[facility] Jmyvezzapz88[address] [place] [address]Dr. Farhat Leal Anion gap [Moles/Vol] 17.8 mmol/L Normal [facility] Comment on above: Performed By: #### C MP, BNP, CRP ####[facility] Bbtxyinxqi72[address] [place] [address]Dr. Farhat Leal AST [Catalytic activity/Vol] 48 U/L Critically high 15-37 [facility] Comment on above: Performed By: #### C MP, BNP, CRP ####[facility] Wudwdpkuzl26[address] [place] [address]Dr. Farhat Leal Bilirubin [Mass/Vol] 0.8 mg/dL Normal 0.2-1.0 [facility] Comment on above: Performed By: #### C MP, BNP, CRP ####[facility] Cqofysnqza9557 [place] [address]Dr. Farhat Leal Calcium [Mass/Vol] 8.3 mg/dL Critically low 8.5-10.1 [facility] Comment on above: Performed By: #### C MP, BNP, CRP ####[facility] Xjrwsmgbkw1691 [place] [address]Dr. Farhat Leal Chloride [Moles/Vol] 97 mmol/L Critically low 98-107 [facility] Comment on above: Performed By: #### C MP, BNP, CRP ####[facility] Srqgpjarkf3751 [place] [address]Dr. Farhat Leal CO2 [Moles/Vol] 23.0 mmol/L Normal 21.0-32.0 [facility] Comment on above: Performed By: #### C MP, BNP, CRP ####[facility] Innfemdgqy33[address] [place], [place] [address]Dr. Farhat Elvis Creatinine [Mass/Vol] 1.68 mg/dL Critically high 0.70-1.30 [facility] Comment on above: Performed By: #### C MP, BNP, CRP ####[facility] Qzefmbvhtz796[address] [place], [place] [address]Dr. Madelynlorri Elvis EGFR-AF [place] 48 mL/min/1.73m2 Critically low >=60 [facility] Comment on above: Performed By: #### C MP, BNP, CRP ####[facility] Ccuwaspplg14[address] [place], [place] [address]Dr. Farhat Elvis EGFR-NON AF [place] 40 mL/min/1.73m2 Critically low >=60 [facility] Comment on above: Performed By: #### C MP, BNP, CRP ####[facility] Kknyrkeggq1967[address] [place], [place] [address]Dr. Farhat Elvis Globulin (S) [Mass/Vol] 3.9 g/dL Normal [facility] Comment on above: Performed By: #### C MP, BNP, CRP ####[facility] Tkbzuofeiy304[address] [place], [place] [address]Dr. Farhat Leal Glucose [Mass/Vol] 282 mg/dL Critically high 74-106 T [facility] Comment on above: Performed By: #### C MP, BNP, CRP ####[facility] Anabfruasl7[address] [place], [place] [address]Dr. Farhat Leal Potassium [Moles/Vol] 4.8 mmol/L Normal 3.5-5.1 [facility] Comment on above: Performed By: #### C MP, BNP, CRP ####[facility] Ujdpxcuvvp0766 [place] [address]Dr. Farhat Leal Protein [Mass/Vol] 5.4 g/dL Critically low 6.4-8.2 Th [facility] Comment on above: Performed By: #### C MP, BNP, CRP ####[facility] Kwszkslqvd[address] [place], [place] [address]Dr. Farhat Leal Sodium [Moles/Vol] 133 mmol/L Critically low 136-145 Th [facility] Comment on above: Performed By: #### C MP, BNP, CRP ####[facility] Rvgpxxewpm[address] [place], [place] [address]Dr. Farhat Leal Urea nitrogen [Mass/Vol] 40.0 mg/dL Critically high 7.0-18.0 [facility] Comment on above: Performed By: #### C MP, BNP, CRP ####[facility] Tfdtwercgj[address] [place], [place] [address]Dr. Farhat Leal Urea nitrogen/Creatinine [Mass ratio] 23.8 mg/mg Normal [facility] Comment on above: Performed By: #### C MP, BNP, CRP ####[facility] Ilfamskogs[address] [place], [place] [address]Dr. Farhat Leal PROTIMEon 11-25-2021 INR Coag (PPP) [Relative time] 1.48 {INR} Normal [facility] Comment on above: Performed By: #### P T ####[facility] Etjvcwptvy424[address] [place], [place] [address]Dr. Farhat Leal INR GUIDELINES SEE BELOW Normal The [facility] Comment on above: Result Comment: MALINA RED INR: 2.0 - 3.0 CONDITIONS NOT LISTED BELOW 2.5 - 3.5 FOR PROSTHETIC HEART VALVE REPLACEMENT 2.5 - 3.5 RECURRENT THROMBOSIS Performed By: #### P T ####[facility] Crlwtitckk01[address] [place], [place] [address]Dr. Farhat Leal PT Coag (PPP) [Time] 15.6 s Critically high 9.0-11.6 [facility] Comment on above: Performed By: #### P T ####[facility] Rbygfngtvh2112[address] [place], [place] [address]Dr. Farhat Leal SED RATE WESTERGRENon 2021 SED RATE 76 mm/hr Critically high <=20 The [facility] Comment on above: Performed By: #### S EDR ####[facility] Vrufthwfal138248 [address] [place], [place] [address]Dr. Farhat Leal BNPon 11-24-2021 Natriuretic peptide B (Bld) [Mass/Vol] 88002.0 pg/mL Critically high <=1,800.0 [facility] Comment on above: Performed By: #### B SOLUTIONS ARCHITECT CONSULTANT, CMP, CRP ####[facility] Kfumvnbibt020348 [address] [place], [place] [address]Dr. Farhat Leal CBC AUTO DIFFon 11-24-2021 BASO # 0.0 103/ul Normal 0.0-0.1 [facility] Comment on above: Performed By: #### C BC ####[facility] Jyctjzeiud32[address] [place], [place] [address]Dr. Farhat Elvis Basophils/100 WBC (Bld) 0.3 % Normal 0.2-2.0 [facility] Comment on above: Performed By: #### C BC ####[facility] Mtsosomyxl0150[address] [place], [place] [address]Dr. Farhat Leal EO # 0.2 103/ul Normal 0.0-0.7 [facility] Comment on above: Performed By: #### C BC ####[facility] Mmxbyojhjn886648 [address] [place], [place] [address]Dr. Madelynlorri Leal Eosinophils/100 WBC (Bld) 1.2 % Normal 0.9-7.0 [facility] Comment on above: Performed By: #### C BC ####[facility] Njefyekyck037[address] [place], [place] [address]Dr. Farhat Leal Erythrocyte distribution width (RBC) [Ratio] 13.5 % Normal 11.0-15.0 [facility] Comment on above: Performed By: #### C BC ####[facility] [address] [place] [address]Dr. Farhat Leal Hematocrit (Bld) [Volume fraction] 31.1 % Critically low 42.0-54.0 [facility] Comment on above: Performed By: #### C BC ####[facility] Bxdqrdhtek[address] [place] [address]Dr. Farhat Leal Hemoglobin (Bld) [Mass/Vol] 10.0 g/dL Critically low 14.0-18.0 [facility] Comment on above: Performed By: #### C BC ####[facility] Kbxvfdasgm9[address] [place] [address]Dr. Farhat Leal IG # 0.13 10e3/ul Critically high 0.00-0.03 [facility] Comment on above: Performed By: #### C BC ####[facility] Kpylvaqdce030[address] [place] [address]Dr. Farhat Leal IG % 1.0 % Critically high 0.0-0.5 [facility] Comment on above: Performed By: #### C BC ####[facility] Bsfajtqend4211[address] [place], [place] [address]DrSkylar Farhat Leal LYMPH # 0.7 103/ul Critically low 1.2-3.8 [facility] Comment on above: Performed By: #### C BC ####[facility] Emdxcvrjmf4[address] [place] [address]DrSkylar Farhat Elvis Lymphocytes/100 WBC (Bld) 4.9 % Critically low 20.5-60.0 [facility] Comment on above: Performed By: #### C BC ####[facility] Eb[address]instbrp[address] [place] [address]DrSkylar Madelynlorri Leal MANUAL DIFF REQ NO Normal [facility] Comment on above: Performed By: #### C BC ####[facility] Oqnyrnimde9246 [place] [address]DrSkylar Madelynlorri Leal MCH (RBC) [Entitic mass] 29.6 pg Normal 25.9-34.0 [facility] Comment on above: Performed By: #### C BC ####[facility] Qdcuxczcgi6373 [place] [id number]. Farhat Leal MCHC (RBC) [Mass/Vol] 32.2 g/dL Normal 29.9-35.2 [facility] Comment on above: Performed By: #### C BC ####[facility] Ayulbkddtk2813 [place] [id number] Farhat Elvis MCV (RBC) [Entitic vol] 92.0 fL Normal 80.0-94.0 [facility] Comment on above: Performed By: #### C BC ####[facility] Tjrwckcbdi3994 [place] [id number] Leal MONO # 1.3 103/ul Critically high 0.3-0.8 [facility] Comment on above: Performed By: #### C BC ####[facility] Pdbgyzyimy7367 [place] [address]Dr. Farhat Leal Monocytes/100 WBC (Bld) 9.6 % Normal 1.7-12.0 [facility] Comment on above: Performed By: #### C BC ####[facility] Wmmonkylmq[address] [place], [place] [address]DrSkylar Joshilorri Elvis NEUT # 11.2 103/ul Critically high 1.4-6.5 The [facility] Comment on above: Performed By: #### C BC ####[facility] Rnobliuwnf239[address] [place], [place] [address]DrSkylar Leal Neutrophils/100 WBC (Bld) 83.0 % Critically high 43.0-75.0 [facility] Comment on above: Performed By: #### C BC ####[facility] Qwmsezkpqs06[address] [place], [place] [address]DrSkylar Leal Platelet mean volume (Bld) [Entitic vol] 9.5 fL Normal 9.5-13.5 [facility] Comment on above: Performed By: #### C BC ####[facility] Gztoqogxlt015[address] [place], [place] [address]DrSkylar Leal PLT 395 103/ul Normal 150-450 [facility] Comment on above: Performed By: #### C BC ####[facility] Awyzztdgrw9845 [place] [id number]. Farhat Leal RBC 3.38 106/ul Critically low 4.70-6.10 [facility] Comment on above: Performed By: #### C BC ####[facility] Igtdlneaji8743 [place] [phone]. Farhat Leal WBC 13.4 103/ul Critically high 4.0-11.0 The [facility] Comment on above: Performed By: #### C BC ####[facility] Rlkvddyotz4439 [place] [id number]. Farhat Leal CRPon 11-24-2021 CRP 27.8 mg/dL Critically high <=1.0 [facility] Comment on above: Performed By: #### B SOLUTIONS ARCHITECT CONSULTANT, CMP, CRP ####[facility] Rycsdywwtb599[address] [place], [place] [address]Dr. Farhat Leal CULTURE ANAEROBICon 11-25-19 22 CULTURE ANAEROBIC Culture Observations : NO GROWTH OF ANAEROBES AT 72 HOURS. Normal The [facility] Comment on above: Performed By: #### A NACX ####[facility] Vrppxrqmdo555[address] [place], [place] [address]Dr. Farhat Leal CULTURE URINEon 11-24-2021 CULTURE URINE Culture Observations : NO GROWTH. Normal [facility] Comment on above: Performed By: #### U RCX ####[facility] Srnchpwxzy5501 [place] [id number]. Farhat Leal ECHOCARDIO M/2D COMPLETEon 1 ECHOCARDIO M/2D COMPLETE Normal [facility] ER URINE PROFILEon 2 Bilirubin Ql (U) Negative Normal NEGATIVE The [facility] Comment on above: Performed By: #### E RUR ####[facility] Ajvbubeboa4000[address] [place], [place] [address]Dr. Farhat Elvis Clarity (U) CLEAR Normal CLEAR [facility] Comment on above: Performed By: #### E RUR ####[facility] Qwlqvvxskp45[address] [place], [place] [address]Dr. Farhat Leal Color (U) YELLOW Normal YELLOW [facility] Comment on above: Performed By: #### E RUR ####[facility] Xxiebbrfqz6360[address] [place], [place] [address]Dr. Farhat Leal ERUAHD A micrscopic examination will be performed if indicated. Normal [facility] Comment on above: Performed By: #### E RUR ####[facility] Xunifjxsbf3700[address] [place], [place] [address]Dr. Farhat Leal Glucose Ql (U) Negative Normal NEGATIVE The [facility] Comment on above: Performed By: #### E RUR ####[facility] Ihxnyrqpyf9318[address] [place], [place] [address]Dr. Farhat Leal Hemoglobin Ql (U) Negative Normal NEGATIVE [facility] Comment on above: Performed By: #### E RUR ####[facility] Dszfcwhfye2718[address] [place], [place] [address]Dr. Farhat Leal Ketones Ql (U) TRACE Abnormal NEGATIVE The [facility] Comment on above: Performed By: #### E RUR ####[facility] Yyfnyiosla3430[address] [place], [place] [address]Dr. Farhat Leal LEUKOCYTES Negative Normal NEGATIVE [facility] Comment on above: Performed By: #### E RUR ####[facility] Lichcfizfn197848 [address] [place], [place] [address]Dr. Farhat Leal Nitrite Ql (U) Negative Normal NEGATIVE The [facility] Comment on above: Performed By: #### E RUR ####[facility] Dzwtyvljbs015648 [address] [place], [place] [address]Dr. Farhat Leal pH (U) 5.5 [pH] Normal 5-9 [facility] Comment on above: Performed By: #### E RUR ####[facility] Dmzcmblsqx8901[address] [place], [place] [address]Dr. Farhat Leal SPEC GRAVITY 1.015 Normal 1.005-<=1.02 5 [facility] Comment on above: Performed By: #### E RUR ####[facility] Zalbzxwqpd1829[address] [place], [place] [address]Dr. Farhat Leal UA PROTEIN Negative Normal NEGATIVE/ TRACE [facility] Comment on above: Performed By: #### E RUR ####[facility] Dhueymrkbh707248 [address] [place], [place] [address]Dr. Farhat Leal UR MICRO IND NOT INDICATED Normal [facility] Comment on above: Performed By: #### E RUR ####[facility] Cqzthcnmxw179[address] [place], [place] [address]Dr. Farhat Leal Urobilinogen Qn (U) 0.2 {Boyd'U}/dL Normal 0.2 - 1. 0 [facility] Comment on above: Performed By: #### E RUR ####[facility] Cnvpeqvoet630[address] [place], [place] [address]Dr. Farhat Leal GRAM STAINon 11-24-2021 COMMENTS NO ORGANISMS OBSERVED Normal [facility] Comment on above: Performed By: #### G STAIN ####[facility] Vlqhihojgp9400[address] [place], [place] [address]Dr. Farhat Leal DIPHTHEROIDS Normal [facility] Comment on above: Performed By: #### G STAIN ####[facility] Tnfqqerpma300[address] [place], [place] [address]Dr. Farhat Leal EPITHELIALS Normal [facility] Comment on above: Performed By: #### G STAIN ####[facility] Xglvhuadjh152[address] [place], [place] [address]Dr. Farhat Leal FUNGAL ELEMENTS Normal [facility] Comment on above: Performed By: #### G STAIN ####[facility] Snlbvxqdkh5609[address] [place], [place] [address]Dr. Farhat Leal GRAM NEG BACILLI FEW Normal [facility] Comment on above: Performed By: #### G STAIN ####[facility] Spsaqhsrpw666[address] [place], [place] [address]Dr. Farhat Leal GRAM NEG BACILLI Normal [facility] Comment on above: Performed By: #### G STAIN ####[facility] Olbfawuuaz3034[address] [place], [place] [address]Dr. Farhat Leal GRAM NEG DIPPLOCOCCI Normal [facility] Comment on above: Performed By: #### G STAIN ####[facility] Qufpebpbvg9917 [place] [phone]. Farhat Leal GRAM POS BACILLI Normal [facility] Comment on above: Performed By: #### G STAIN ####[facility] Cwuwnqbyfo56[address] [place] [address]Dr. Farhat Leal GRAM POSITIVE COCCI Normal The [facility] Comment on above: Performed By: #### G STAIN ####[facility] Ghwoyrzyho3806 [place] [address]Dr. Farhat Leal GRAM POSITIVE COCCI FEW Normal The [facility] Comment on above: Performed By: #### G STAIN ####[facility] Gkunyjdhuc6950[address] [place], [place] [address]Dr. Farhat Leal GRAM STAIN SOURCE #1 Rt foot abscess Normal [facility] Comment on above: Performed By: #### G STAIN ####[facility] Tbxlbveysx0016[address] [place], [place] [address]Dr. Farhat Leal GRAM STAIN SOURCE #2 Rt foot abscess Normal [facility] Comment on above: Performed By: #### G STAIN ####[facility] Ktssmkgmcn20[address] [place], [place] [address]Dr. Farhat Leal GRAM STAIN SOURCE RT CALCANEOUS Normal [facility] Comment on above: Performed By: #### G STAIN ####[facility] Irtougdqxu339[address] [place], [place] [address]Dr. Farhat Leal GRAM STAIN SOURCE RT ACHILLES TENDON Normal [facility] Comment on above: Performed By: #### G STAIN ####[facility] Xyzvmzwjki9070 [place] [address]Dr. Farhat Leal GS_DIPTH Normal [facility] Comment on above: Performed By: #### G STAIN ####[facility] Gbneaeojrl07[address] [place], [place] [address]Dr. Farhat Leal WBC NONE SEEN Normal [facility] Comment on above: Performed By: #### G STAIN ####[facility] Nbbqqeungn8360 [place] [address]Dr. Farhat Leal WBC RARE Normal [facility] Comment on above: Performed By: #### G STAIN ####[facility] Zbqfxrvfmr8432 [place] [address]Dr. Farhat Leal POINT OF CARE GLUCOSEon 11-15 0 Glucose [Mass/Vol] 236 mg/dL Critically high 74-106 [facility] Comment on above: Performed By: #### P OCGLUC ####[facility] Uxippeealw9501 [place] [address]Dr. Farhat Leal Glucose [Mass/Vol] 331 mg/dL Critically high 74-106 [facility] Comment on above: Performed By: #### P OCGLUC ####[facility] Xbpbixxufu4061 [place] [address]Dr. Farhat Leal PROF 14(COMP METB)on 022 Albumin [Mass/Vol] 1.6 g/dL Critically low 3.4-5.0 [facility] Comment on above: Performed By: #### B SOLUTIONS ARCHITECT CONSULTANT, CMP, CRP ####[facility] Vsjrntjbcj9616 [place] [address]Dr. Farhat Leal Albumin/Globulin [Mass ratio] 0.4 {ratio} Normal [facility] Comment on above: Performed By: #### B SOLUTIONS ARCHITECT CONSULTANT, CMP, CRP ####[facility] Ktkoorcwxu963648 [address] [place], [place] [address]Dr. Farhat Leal ALP [Catalytic activity/Vol] 94 U/L Normal 46-116 [facility] Comment on above: Performed By: #### B SOLUTIONS ARCHITECT CONSULTANT, CMP, CRP ####[facility] Cavobwwflw6793 [place] [address]Dr. Farhat Leal ALT [Catalytic activity/Vol] 49 U/L Normal 16-63 [facility] Comment on above: Performed By: #### B SOLUTIONS ARCHITECT CONSULTANT, CMP, CRP ####[facility] Eplnenqnuk6553 [place] [address]Dr. Farhat Leal Anion gap [Moles/Vol] 12.5 mmol/L Normal [facility] Comment on above: Performed By: #### B SOLUTIONS ARCHITECT CONSULTANT, CMP, CRP ####[facility] Arucbnafqf8588 [place] [address]Dr. Farhat Leal AST [Catalytic activity/Vol] 102 U/L Critically high 15-37 [facility] Comment on above: Performed By: #### B SOLUTIONS ARCHITECT CONSULTANT, CMP, CRP ####[facility] Lgjmutkyri5169 [place] [address]Dr. Farhat Leal Bilirubin [Mass/Vol] 0.8 mg/dL Normal 0.2-1.0 [facility] Comment on above: Performed By: #### B SOLUTIONS ARCHITECT CONSULTANT, CMP, CRP ####[facility] Mikbdyevas1201[address] [place], [place] [address]Dr. Farhat Leal Calcium [Mass/Vol] 8.4 mg/dL Critically low 8.5-10.1 [facility] e [facility] Comment on above: Performed By: #### B SOLUTIONS ARCHITECT CONSULTANT, CMP, CRP ####[facility] Esxzulenls7313[address] [place], [place] [address]Dr. Farhat Leal Chloride [Moles/Vol] 96 mmol/L Critically low 98-107 [facility] Comment on above: Performed By: #### B SOLUTIONS ARCHITECT CONSULTANT, CMP, CRP ####[facility] Qwfisnfapu076148 [address] [place], [place] [address]Dr. Farhat Leal CO2 [Moles/Vol] 24.8 mmol/L Normal 21.0-32.0 [facility] Comment on above: Performed By: #### B SOLUTIONS ARCHITECT CONSULTANT, CMP, CRP ####[facility] Olvamyovnq2985[address] [place], [place] [address]Dr. Farhat Leal Creatinine [Mass/Vol] 1.36 mg/dL Critically high 0.70-1.30 [facility] Comment on above: Performed By: #### B SOLUTIONS ARCHITECT CONSULTANT, CMP, CRP ####[facility] Sgobphqjbo68[address] [place] [address]Dr. Farhat Leal EGFR-AF [place] >60 Normal >=60 [facility] Comment on above: Performed By: #### B SOLUTIONS ARCHITECT CONSULTANT, CMP, CRP ####[facility] Obxgalfdcz0630 [place] [address]Dr. Farhat Leal EGFR-NON AF [place] 51 mL/min/1.73m2 Critically low >=60 [facility] Comment on above: Performed By: #### B SOLUTIONS ARCHITECT CONSULTANT, CMP, CRP ####[facility] Aavyuoryou4718 [place] [address]Dr. Farhat Leal Globulin (S) [Mass/Vol] 4.1 g/dL Normal [facility] Comment on above: Performed By: #### B SOLUTIONS ARCHITECT CONSULTANT, CMP, CRP ####[facility] Zadqrxzlvp2279 [place] [address]Dr. Farhat Leal Glucose [Mass/Vol] 204 mg/dL Critically high 74-106 [facility] Comment on above: Performed By: #### B SOLUTIONS ARCHITECT CONSULTANT, CMP, CRP ####[facility] Hxwbudmljh1878 [place] [address]Dr. Farhat Leal Potassium [Moles/Vol] 4.3 mmol/L Normal 3.5-5.1 [facility] Comment on above: Performed By: #### B SOLUTIONS ARCHITECT CONSULTANT, CMP, CRP ####[facility] Pdpnpimzvv6818[address] [place], [place] [address]Dr. Farhat Leal Protein [Mass/Vol] 5.7 g/dL Critically low 6.4-8.2 [facility] Comment on above: Performed By: #### B SOLUTIONS ARCHITECT CONSULTANT, CMP, CRP ####[facility] Hwrxdfqrio600[address] [place], [place] [address]Dr. Farhat Leal Sodium [Moles/Vol] 129 mmol/L Critically low 136-145 [facility] Comment on above: Performed By: #### B SOLUTIONS ARCHITECT CONSULTANT, CMP, CRP ####[facility] Gudxawcyua620[address] [place], [place] [address]Dr. Farhat Leal Urea nitrogen [Mass/Vol] 41.0 mg/dL Critically high 7.0-18.0 [facility] Comment on above: Performed By: #### B SOLUTIONS ARCHITECT CONSULTANT, CMP, CRP ####[facility] Pppbyzrlyw6633[address] [place], [place] [address]Dr. Farhat Leal Urea nitrogen/Creatinine [Mass ratio] 30.1 mg/mg Normal [facility] Comment on above: Performed By: #### B SOLUTIONS ARCHITECT CONSULTANT, CMP, CRP ####[facility] Yfrwithcpd638[address] [place], [place] [address]Dr. Farhat Leal PROTIMEon 11-24-2021 INR Coag (PPP) [Relative time] 2.20 {INR} Normal [facility] Comment on above: Performed By: #### P T ####[facility] Dfgjcjkyzt01[address] [place] [address]Dr. Farhat Leal INR GUIDELINES SEE BELOW Normal The [facility] Comment on above: Result Comment: MALINA RED INR: 2.0 - 3.0 CONDITIONS NOT LISTED BELOW 2.5 - 3.5 FOR PROSTHETIC HEART VALVE REPLACEMENT 2.5 - 3.5 RECURRENT THROMBOSIS Performed By: #### P T ####[facility] Asazbzmdni5305 [place] [address]Dr. Farhat Leal PT Coag (PPP) [Time] 22.6 s Critically high 9.0-11.6 [facility] Comment on above: Performed By: #### P T ####[facility] Srofxhzvxr39[address] [place], [place] [address]Dr. Farhat Leal SED RATE [facility] 2021 SED RATE 80 mm/hr Critically high <=20 [facility] Comment on above: Performed By: #### S EDR ####[facility] Bvzgazgrvk568[address] [place], [place] [address]Dr. Farhat Leal BLOOD CULTURE ID PANELon A. baumannii Not detected Normal NOT DETECTED [facility] Comment on above: Performed By: #### B CID2 ####[facility] Ahxbrhqoua5[address] [place], [place] [address]Dr. Farhat Leal Bacteriodes fragilis Not detected Normal NOT DETECTED [facility] Comment on above: Performed By: #### B CID2 ####[facility] Pmaqtxyzop0990 [place] [address]Dr. Farhat Leal BCID CONTROLS PASSED Normal The [facility] Comment on above: Performed By: #### B CID2 ####[facility] Suvaphbynw808[address] [place], [place] [address]Dr. Farhat Leal BCIDBTHD BLOOD CULTURE BOTTLE INFORMATION Normal [facility] Comment on above: Performed By: #### B CID2 ####[facility] R[address]vqnqem[address] [place], [place] [address]Dr. Yilorri Leal BCIDHD1 ANTIMICROBIAL RESISTANCE GENES Normal [facility] Comment on above: Performed By: #### B CID2 ####[facility] Luyjfwopsy6371 [place] [address]Dr. Yilorri Leal BCIDHD2 SEE BELOW Normal [facility] Comment on above: Result Comment: Note : Antimicrobial resitance can occur via multiple mechanisms. A Not Detected result for the [employer] antomicrobial resistance gene assays does not indicate antimicrobial susceptibility. Subculturing is required for species identification and susceptibility testing of isolates. Performed By: #### B CID2 ####[facility] Iiqmedodlp0593 [place] [address]Dr. Yilorri Leal BCIDHD3 Positive Normal [facility] Comment on above: Performed By: #### B CID2 ####[facility] Erovdfzyks4554 [place] [address]Dr. Yilorri Leal BCIDHD4 Negative Normal [facility] Comment on above: Performed By: #### B CID2 ####[facility] Njvegnlcrd468[address] [place], [place] [address]Dr. Yilorri Leal BCIDHD5 YEAST Normal [facility] Comment on above: Performed By: #### B CID2 ####[facility] Onucqmipry4847[address] [place], [place] [address]Dr. Yilan Leal Bottle Set: Set 1 Normal [facility] Comment on above: Performed By: #### B CID2 ####[facility] Ztbnfasivk5610 [place] [address]Dr. Farhat Leal Bottle: Aerobic Normal [facility] Comment on above: Performed By: #### B CID2 ####[facility] Uizkfiatvy2064 [place] [address]Dr. Yilorri Leal C. neoformans/gattii Not detected Normal NOT DETECTED [facility] Comment on above: Performed By: #### B CID2 ####[facility] Smdrodolpr5625 [place] [address]Dr. Yilorri Leal Disha albicans Not detected Normal NOT DETECTED [facility] Comment on above: Performed By: #### B CID2 ####[facility] Xdcsoeaivu7247 [place] [id number]. Yilan Leal Disha auris Not detected Normal NOT DETECTED The [facility] Comment on above: Performed By: #### B CID2 ####[facility] Wyliiqxsuf6377 [place] [id number]. Yilan Leal Disha glabrata Not detected Normal NOT DETECTED [facility] Comment on above: Performed By: #### B CID2 ####[facility] Xzsqkgxuei7172 [place] [id number]. Yilan Leal Disha Krusei Not detected Normal NOT DETECTED [facility] Comment on above: Performed By: #### B CID2 ####[facility] Zuyoosenhr77[address] [place], [place] [address]Dr. Yilan Leal Disha Parapsilosis Not detected Normal NOT DETECTED [facility] Comment on above: Performed By: #### B CID2 ####[facility] Xjpdzfzulj1522 [place] [address]Dr. Yilorri Leal Disha Tropicalis Not detected Normal NOT DETECTED [facility] Comment on above: Performed By: #### B CID2 ####[facility] R[address]uusqujf450[address] [place], [place] [address]Dr. Farhat Leal CTX-M Resistant Gene Not Applicable Normal NOT DETECTE D [facility] Comment on above: Performed By: #### B CID2 ####[facility] Rguhrskspf0633 [place] [address]Dr. Yilorri Leal E. Cloacae complex Not detected Normal NOT DETECTED [facility] Comment on above: Performed By: #### B CID2 ####[facility] Zazfqxjsqe7387 [place] [id number]. Yilan Leal E. faecalis Not detected Normal NOT DETECTED [facility] Comment on above: Performed By: #### B CID2 ####[facility] Maqvkqmejc785[address] [place], [place] [address]Dr. Yilorri Leal E. faecium Not detected Normal NOT DETECTED The [facility] Comment on above: Performed By: #### B CID2 ####[facility] Jtvgscvlqy74[address] [place] [address]Dr. Madelynlorri Leal Enterobacteriaceae Not detected Normal NOT DETECTED [facility] Comment on above: Performed By: #### B CID2 ####[facility] Xoflnbgcdy254348 [address] [place], [place] [address]Dr. Farhat Leal Escherichia coli Not detected Normal NOT DETECTED [facility] Comment on above: Performed By: #### B CID2 ####[facility] Eztihpylag8211[address] [place], [place] [address]Dr. Farhat Leal H. influenzae Not detected Normal NOT DETECTED The [facility] Comment on above: Performed By: #### B CID2 ####[facility] Ehhmcwyjdj4944[address] [place], [place] [address]Dr. Farhat Leal IMP Resistant Gene Not Applicable Normal NOT DETECTED [facility] Comment on above: Performed By: #### B CID2 ####[facility] Ufyubqeqzk857[address] [place], [place] [address]Dr. Farhat Leal K. oxytoca Not detected Normal NOT DETECTED The [facility] Comment on above: Performed By: #### B CID2 ####[facility] Yrzqxppgam99224[address] [place], [place] [address]Dr. Madelynlorri Leal K. pneumoniae Not detected Normal NOT DETECTED The [facility] Comment on above: Performed By: #### B CID2 ####[facility] Yfxnrguztz195348 [address] [place], [place] [address]Dr. Madelynlorri Leal Klebsiella aerogenes Not detected Normal NOT DETECTED [facility] Comment on above: Performed By: #### B CID2 ####[facility] Njbrifzyus0347[address] [place], [place] [address]Dr. Farhat Leal KPC Resistant Gene Not Applicable Normal NOT DETECTED [facility] Comment on above: Performed By: #### B CID2 ####[facility] Vayfqduxnz224[address] [place], [place] [address]Dr. Farhat Leal List. monocytogenes Not detected Normal NOT DETECTED [facility] Comment on above: Performed By: #### B CID2 ####[facility] Jobftqprht2024[address] [place], [place] [address]Dr. Farhat Leal Mcr-1 Resistant Gene Not Applicable Normal NOT DETECTE D [facility] Comment on above: Performed By: #### B CID2 ####[facility] Cbjhjmreqn4127[address] [place], [place] [address]Dr. Farhat Leal mecA/C Not Applicable Normal NOT DETECTED The [facility] Comment on above: Performed By: #### B CID2 ####[facility] Vefrrparay899348 [address] [place], [place] [address]Dr. Farhat Leal mecA/C MREJ Detected Abnormal NOT DETECTED The [facility] Comment on above: Performed By: #### B CID2 ####[facility] Xbfcqabkxb0627[address] [place], [place] [address]Dr. Farhat Leal N. meningitidis Not detected Normal NOT DETECTED The [facility] Comment on above: Performed By: #### B CID2 ####[facility] Pgyqarzbwi5634[address] [place], [place] [address]Dr. Farhat Leal NDM Resistant Gene Not Applicable Normal NOT DETECTED [facility] Comment on above: Performed By: #### B CID2 ####[facility] Wqpegptnzn2550[address] [place], [place] [address]Dr. Farhat Leal Oxa-48-like Not Applicable Normal NOT DETECTED The [facility] Comment on above: Performed By: #### B CID2 ####[facility] Aayivsduuv9610[address] [place], [place] [address]Dr. Farhat Leal Proteus Not detected Normal NOT DETECTED The [facility] Comment on above: Performed By: #### B CID2 ####[facility] Kplbfuineu660648 [address] [place], [place] [address]Dr. Farhat Leal Pseud. aeruginosa Not detected Normal NOT DETECTED [facility] Comment on above: Performed By: #### B CID2 ####[facility] Jwfzlkrueb878348 [address] [place], [place] [address]Dr. Farhat Leal S. maltophilia Not detected Normal NOT DETECTED [facility] Comment on above: Performed By: #### B CID2 ####[facility] Piuczshyvj33[address] [place], [place] [address]Dr. Farhat Leal Salmonella Not detected Normal NOT DETECTED The [facility] Comment on above: Performed By: #### B CID2 ####[facility] Mdrndqijxi967[address] [place], [place] [address]Dr. Farhat Leal Seratia marcescens Not detected Normal NOT DETECTED [facility] Comment on above: Performed By: #### B CID2 ####[facility] Mvuraxqqln7142 [place] [id number]. Farhat Leal Site: Rt Hand Normal [facility] Comment on above: Performed By: #### B CID2 ####[facility] Xwbmeqfjos465[address] [place], [place] [address]Dr. Farhat Elvis Staph. aureus Detected Abnormal NOT DETECTED The [facility] Comment on above: Performed By: #### B CID2 ####[facility] Gvnbgzwjdw6005[address] [place], [place] [address]Dr. Madelynlrori Leal Staph. epidermidis Not detected Normal NOT DETECTED [facility] Comment on above: Performed By: #### B CID2 ####[facility] Qivugaztgj401348 [address] [place], [place] [address]Dr. Farhat Leal Staph. lugdunensis Not detected Normal NOT DETECTED [facility] Comment on above: Performed By: #### B CID2 ####[facility] Itfclhzqsw2678[address] [place], [place] [address]Dr. Farhat Leal Staphylococcus Detected Abnormal NOT DETECTED The [facility] Comment on above: Performed By: #### B CID2 ####[facility] Gkmrzmlzfj2901[address] [place], [place] [address]Dr. Madelynlorri Leal Strep. agalactiae Not detected Normal NOT DETECTED [facility] Comment on above: Performed By: #### B CID2 ####[facility] Pknwpweioa7017[address] [place], [place] [address]Dr. Madelynlorri Leal Strep. pneumoniae Not detected Normal NOT DETECTED [facility] Comment on above: Performed By: #### B CID2 ####[facility] Cyjnfxmecn126[address] [place], [place] [address]Dr. Farhat Leal Strep. pyogenes Not detected Normal NOT DETECTED The [facility] Comment on above: Performed By: #### B CID2 ####[facility] Lbqgbktkdh9569 [place] [address]Dr. Farhat Leal Streptococcus Not detected Normal NOT DETECTED The [facility] Comment on above: Performed By: #### B CID2 ####[facility] Butiwtpntm8846 [place] [address]Dr. Farhat Leal Teodoro/B Resist. Gene Not Applicable Normal NOT DETECTED [facility] Comment on above: Performed By: #### B CID2 ####[facility] Lswwhefxfe5346 [place] [address]Dr. Farhat Leal VIM Resistant Gene Not Applicable Normal NOT DETECTED [facility] Comment on above: Performed By: #### B CID2 ####[facility] Chzsshxkpk5355[address] [place], [place] [address]Dr. Farhat Leal BNPon 11-23-2021 Natriuretic peptide B (Bld) [Mass/Vol] 41634.0 pg/mL Critically high <=1,800.0 [facility] Comment on above: Performed By: #### C MP, CMADM, BNP ####[facility] Mndptjqeij799[address] [place], [place] [address]Dr. Farhat Leal CARDIAC AMANDA ADMITon 022 CK [Catalytic activity/Vol] 41 U/L Normal 39-308 [facility] Comment on above: Performed By: #### C MP, CMADM, BNP ####[facility] Jewyloqgxc15[address] [place] [address]Dr. Farhat Leal CK.MB [Mass/Vol] 0.98 ng/mL Normal <=3.60 The [facility] Comment on above: Performed By: #### C MP, CMADM, BNP ####[facility] Gggulnthnl360[address] [place], [place] [address]Dr. Farhat Leal HSTROP 30.1 pg/mL Normal 4.0-76.1 [facility] Comment on above: Result Comment: CUT- OFF POINTS HAVE BEEN ESTABLISHED BASED ON THE FOURTH UNIVERSAL DEFINITIONS OF MYOCARDIALINFARCTION. THE UPPER REFERENCE LIMIT (URL) OF TROPONIN, DEFINED THE 99TH PERCENTILE OFcTnI DISTRIBUTION IN A REFERENCE POPULATION, HAS BEEN CONFIRMED THE DECISION THRESHOLDFOR DC DIAGNOSIS. Performed By: #### C MP, CMADM, BNP ####[facility] Vay[address]ownvua8[address] [place] [id number]. Farhat Leal VALERIA 160 ng/mL Critically high 16-96 [facility] Comment on above: Performed By: #### C MP, CMADM, BNP ####[facility] Qtsxudxrgi8507 [place] [id number]. Farhat Elvis CBC AUTO DIFFon 11-23-2021 BASO # 0.0 103/ul Normal 0.0-0.1 [facility] Comment on above: Performed By: #### C BC ####[facility] Qehqrgxmeo9027 [place] [address]Dr. Madelynlorri Leal Basophils/100 WBC (Bld) 0.2 % Normal 0.2-2.0 [facility] Comment on above: Performed By: #### C BC ####[facility] Lqpfnjpkbq3675[address] [place], [place] [address]Dr. Farhat Leal EO # 0.0 103/ul Normal 0.0-0.7 [facility] Comment on above: Performed By: #### C BC ####[facility] Ymtunlzvkz937[address] [place], [place] [address]Dr. Farhat Leal Eosinophils/100 WBC (Bld) 0.1 % Critically low 0.9-7.0 [facility] Comment on above: Performed By: #### C BC ####[facility] Iezjtohqjv3[address] [place], [place] [address]Dr. Farhat Leal Erythrocyte distribution width (RBC) [Ratio] 13.4 % Normal 11.0-15.0 [facility] Comment on above: Performed By: #### C BC ####[facility] Rcorwmtrog5875[address] [place], [place] [address]Dr. Madelynlorri Leal Hematocrit (Bld) [Volume fraction] 31.6 % Critically low 42.0-54.0 [facility] Comment on above: Performed By: #### C BC ####[facility] Ikkjgzyese5832[address] [place], [place] [address]Dr. Farhat Leal Hemoglobin (Bld) [Mass/Vol] 10.4 g/dL Critically low 14.0-18.0 [facility] Comment on above: Performed By: #### C BC ####[facility] Fi[address]akota[address] [place] [address]DrSkylar Leal IG # 0.11 10e3/ul Critically high 0.00-0.03 [facility] Comment on above: Performed By: #### C BC ####[facility] Srfrxgpshy9575 [place] [address]DrSkylar Leal IG % 0.7 % Critically high 0.0-0.5 [facility] Comment on above: Performed By: #### C BC ####[facility] Ugfupywvga9362 [place] [address]DrSkylar Leal LYMPH # 0.5 103/ul Critically low 1.2-3.8 [facility] Comment on above: Performed By: #### C BC ####[facility] Ixqevshwmp4194 [place] [address]DrSkylar Leal Lymphocytes/100 WBC (Bld) 2.8 % Critically low 20.5-60.0 [facility] Comment on above: Performed By: #### C BC ####[facility] Fcgllrjycw34[address] [place] [address]DrSkylar Leal MANUAL DIFF REQ NO Normal [facility] Comment on above: Performed By: #### C BC ####[facility] Blhnqcxati4985 [place] [address]DrSkylar Leal MCH (RBC) [Entitic mass] 29.8 pg Normal 25.9-34.0 [facility] Comment on above: Performed By: #### C BC ####[facility] Pwcrvziwxj6920 [place] [address]DrSkylar Leal MCHC (RBC) [Mass/Vol] 32.9 g/dL Normal 29.9-35.2 [facility] Comment on above: Performed By: #### C BC ####[facility] Zxtscwbvqe8034 [place] [id number] Leal MCV (RBC) [Entitic vol] 90.5 fL Normal 80.0-94.0 [facility] Comment on above: Performed By: #### C BC ####[facility] Kpnxrdywfl9669 [place] [id number] Joshilorri Elvis MONO # 1.3 103/ul Critically high 0.3-0.8 [facility] Comment on above: Performed By: #### C BC ####[facility] Lvdrvgnpjw1076 [place] [address]DrSkylar Leal Monocytes/100 WBC (Bld) 8.3 % Normal 1.7-12.0 [facility] Comment on above: Performed By: #### C BC ####[facility] Jrfaofxxum4011 [place] [address]Dr. Madelynlorri Leal NEUT # 13.9 103/ul Critically high 1.4-6.5 The [facility] Comment on above: Performed By: #### C BC ####[facility] Xrrmcioari0691 [place] [address]Dr. Farhat Leal Neutrophils/100 WBC (Bld) 87.9 % Critically high 43.0-75.0 [facility] Comment on above: Performed By: #### C BC ####[facility] Oxavsoxehs9766 [place] [id number] Leal Platelet mean volume (Bld) [Entitic vol] 9.3 fL Critically low 9.5-13.5 [facility] Comment on above: Performed By: #### C BC ####[facility] Fodoheodlv5600 [place] [id number]. Farhat Leal PLT 390 103/ul Normal 150-450 [facility] Comment on above: Performed By: #### C BC ####[facility] Owngnjycsu7116 [place] [phone] Leal RBC 3.49 106/ul Critically low 4.70-6.10 [facility] Comment on above: Performed By: #### C BC ####[facility] Xyfjezzxvi2693 [place] [phone] Leal WBC 15.9 103/ul Critically high 4.0-11.0 [facility] Comment on above: Performed By: #### C BC ####[facility] Qgqaakcrta89[address] [place], [place] [address]Yh. Farhat Leal CT HEAD WO CONon 11-23-2021 CT HEAD WO CON Normal [facility] CULTURE BLOODon 11-23-2021 Microscopic examination of blood, culture Culture Observations: NO GROWTH AT 5 DAYS. Normal [facility] Comment on above: Performed By: #### B LDCX2 ####[facility] Ewkddphyqj1016 [place], [place] [address]Wy. Farhat Leal Covid-19 PCR (CVDTBH)on SARS-CoV-2 (COVID-19) RNA JOSH+probe Ql (Unsp spec) Not detected Normal NOT DETECTED [facility] Comment on above: Result [...] for this test is supported by the [place] of Health and Human Service's declaration that [...] be used). Performed By: #### C VDTBH ####[facility] Vyjywhnbra2319 [place], [place] [address]Lr. Farhat Leal LACTATE/LACTIC ACIDon 2021 Lactate [Moles/Vol] 1.3 mmol/L Normal 0.4-1.9 [facility] Comment on above: Performed By: #### L ACT ####[facility] Tarmkdrxqb3463 [place] [phone]. Farhat Leal Lactate [Moles/Vol] 1.3 mmol/L Normal 0.4-1.9 [facility] Comment on above: Performed By: #### L ACT ####[facility] Xvcgxjjbfy5809 [place] [address]Dr. Farhat Leal POINT OF CARE GLUCOSEon 10-0 Glucose [Mass/Vol] 252 mg/dL Critically high 74-106 [facility] Comment on above: Performed By: #### P OCGLUC ####[facility] Ilgppchmcu27[address] [place] [address]Dr. Farhat Leal PROF 14(COMP METB)on 022 Albumin [Mass/Vol] 1.6 g/dL Critically low 3.4-5.0 [facility] Comment on above: Performed By: #### C MP, CMADM, BNP ####[facility] Lqasuvpblr2446 [place] [address]Dr. Farhat Leal Albumin/Globulin [Mass ratio] 0.4 {ratio} Normal [facility] Comment on above: Performed By: #### C MP, CMADM, BNP ####[facility] Dbcaqxmosn4022 [place] [address]Dr. Farhat Leal ALP [Catalytic activity/Vol] 98 U/L Normal 46-116 [facility] Comment on above: Performed By: #### C MP, CMADM, BNP ####[facility] Vwdxyubxfm4666 [place] [address]Dr. Farhat Leal ALT [Catalytic activity/Vol] 52 U/L Normal 16-63 [facility] Comment on above: Performed By: #### C MP, CMADM, BNP ####[facility] Xilimtomgv8907 [place] [address]Dr. Farhat Leal Anion gap [Moles/Vol] 9.8 mmol/L Normal [facility] Comment on above: Performed By: #### C MP, CMADM, BNP ####[facility] Sqfvqdawyp9653 [place] [address]Dr. Farhat Leal AST [Catalytic activity/Vol] 122 U/L Critically high 15-37 [facility] Comment on above: Performed By: #### C MP, CMADM, BNP ####[facility] Fzyllgxzyz0254 [place] [address]Dr. Farhat Leal Bilirubin [Mass/Vol] 0.7 mg/dL Normal 0.2-1.0 [facility] Comment on above: Performed By: #### C MP, CMADM, BNP ####[facility] Hwsevepnnn9213 [place] [address]Dr. Farhat Leal Calcium [Mass/Vol] 8.6 mg/dL Normal 8.5-10.1 [facility] Comment on above: Performed By: #### C MP, CMADM, BNP ####[facility] Cbiichgtoy6[address] [place], [place] [address]Dr. Farhat Leal Chloride [Moles/Vol] 95 mmol/L Critically low 98-107 [facility] Comment on above: Performed By: #### C MP, CMADM, BNP ####[facility] Pfkabuzzsp364[address] [place], [place] [address]Dr. Farhat Leal CO2 [Moles/Vol] 29.6 mmol/L Normal 21.0-32.0 [facility] Comment on above: Performed By: #### C MP, CMADM, BNP ####[facility] Znktiddiat8228 [place] [address]Dr. Farhat Leal Creatinine [Mass/Vol] 1.49 mg/dL Critically high 0.70-1.30 [facility] Comment on above: Performed By: #### C MP, CMADM, BNP ####[facility] Pqlwgxaecc2774 [place] [address]Dr. Farhat Leal EGFR-AF [place] 55 mL/min/1.73m2 Critically low >=60 [facility] Comment on above: Performed By: #### C MP, CMADM, BNP ####[facility] Mdxekotara7256 [place] [address]Dr. Farhat Leal EGFR-NON AF [place] 46 mL/min/1.73m2 Critically low >=60 [facility] Comment on above: Performed By: #### C MP, CMADM, BNP ####[facility] Xydyugqrjf0317 [place] [address]Dr. Farhat Leal Globulin (S) [Mass/Vol] 4.3 g/dL Normal [facility] Comment on above: Performed By: #### C MP, CMADM, BNP ####[facility] Tlwbxsqshr5470 [place] [address]Dr. Farhat Leal Glucose [Mass/Vol] 213 mg/dL Critically high 74-106 [facility] Comment on above: Performed By: #### C MP, CMADM, BNP ####[facility] Kyfhsijtud3864 [place] [address]Dr. Farhat Leal Potassium [Moles/Vol] 4.4 mmol/L Normal 3.5-5.1 [facility] Comment on above: Performed By: #### C MP, CMADM, BNP ####[facility] Anxiscctnj6918[address] [place], [place] [address]Dr. Farhat Leal Protein [Mass/Vol] 5.9 g/dL Critically low 6.4-8.2 Th [facility] Comment on above: Performed By: #### C MP, CMADM, BNP ####[facility] Gmnjwitrys49[address] [place], [place] [address]Dr. Farhat Leal Sodium [Moles/Vol] 130 mmol/L Critically low 136-145 Th [facility] Comment on above: Performed By: #### C MP, CMADM, BNP ####[facility] Wxcvblhjre30[address] [place], [place] [address]Dr. Farhat Leal Urea nitrogen [Mass/Vol] 46.0 mg/dL Critically high 7.0-18.0 [facility] Comment on above: Performed By: #### C MP, CMADM, BNP ####[facility] Fdduwkotmi9128[address] [place], [place] [address]Dr. Farhat Leal Urea nitrogen/Creatinine [Mass ratio] 30.9 mg/mg Normal [facility] Comment on above: Performed By: #### C MP, CMADM, BNP ####[facility] Zczngqxqnm798[address] [place], [place] [address]DrSkylar Leal PROTIMEon 10-09-2022 INR Coag (PPP) [Relative time] 2.55 {INR} Normal [facility] Comment on above: Performed By: #### P TT, PT ####[facility] Yybtbrpksh7157 [place] [address]DrSkylar Madelynlorri Leal INR GUIDELINES SEE BELOW Normal [facility] Comment on above: Result Comment: MALINA RED INR: 2.0 - 3.0 CONDITIONS NOT LISTED BELOW 2.5 - 3.5 FOR PROSTHETIC HEART VALVE REPLACEMENT 2.5 - 3.5 RECURRENT THROMBOSIS Performed By: #### P TT, PT ####[facility] Wvlownphsy12[address] [place], [place] [address]DrSkylar Leal PT Coag (PPP) [Time] 25.9 s Critically high 9.0-11.6 [facility] Comment on above: Performed By: #### P TT, PT ####[facility] Uovunqacmd947[address] [place], [place] [address]DrSkylar Leal PTTon 11-23-2021 aPTT Coag (Bld) [Time] 39.9 s Critically high 22.3-36. 2 [facility] Comment on above: Performed By: #### P TT, PT ####[facility] Sbteyircsx415[address] [place], [place] [address]DrSkylar Madelynlorri Leal XR HEEL RT 2Von 11-23-2021 XR HEEL RT 2V Normal [facility] XR FOOT RT MIN 3 VIEWSon XR FOOT RT MIN 3 VIEWS Normal [facility] US ARTERY LEG RTon 2 US ARTERY LEG RT Normal [facility] CBC AUTO DIFFon 09-24-2021 BASO # 0.1 103/ul Normal 0.0-0.1 [facility] Comment on above: Performed By: #### C BC ####[facility] Kzmepfxvwv216[address] [place], [place] [address]DrSkylar Leal Basophils/100 WBC (Bld) 0.7 % Normal 0.2-2.0 [facility] Comment on above: Performed By: #### C BC ####[facility] Rjmdclyztf3579 [place] [id number]. Farhat Leal EO # 0.3 103/ul Normal 0.0-0.7 [facility] Comment on above: Performed By: #### C BC ####[facility] Roaluzducu4833 [place] [phone]. Farhat Leal Eosinophils/100 WBC (Bld) 3.9 % Normal 0.9-7.0 [facility] Comment on above: Performed By: #### C BC ####[facility] Ogfisajwfy2538 [place] [address]Dr. Farhat Leal Erythrocyte distribution width (RBC) [Ratio] 12.6 % Normal 11.0-15.0 [facility] Comment on above: Performed By: #### C BC ####[facility] Dydgtdmibp9334 [place] [address]Dr. Farhat Leal Hematocrit (Bld) [Volume fraction] 38.9 % Critically low 42.0-54.0 [facility] Comment on above: Performed By: #### C BC ####[facility] Ahzcjhmzzv5907 [place] [address]Dr. Farhat Leal Hemoglobin (Bld) [Mass/Vol] 12.8 g/dL Critically low 14.0-18.0 [facility] Comment on above: Performed By: #### C BC ####[facility] Mpspzexgov3658 [place] [address]Dr. Farhat Leal IG # 0.10 10e3/ul Critically high 0.00-0.03 [facility] Comment on above: Performed By: #### C BC ####[facility] Cgdqytivnp5396 [place] [address]Dr. Farhat Leal IG % 1.2 % Critically high 0.0-0.5 [facility] Comment on above: Performed By: #### C BC ####[facility] Qqxqmupboj0831 [place] [address]Dr. Madelynlorri Leal LYMPH # 2.1 103/ul Normal 1.2-3.8 [facility] Comment on above: Performed By: #### C BC ####[facility] Fbolphhhsk0431 [place] [phone]. Farhat Elvis Lymphocytes/100 WBC (Bld) 25.9 % Normal 20.5-60.0 [facility] Comment on above: Performed By: #### C BC ####[facility] Ptgbzeyhnp8855 [place] [phone]. Madelynlorri Leal MANUAL DIFF REQ NO Normal [facility] Comment on above: Performed By: #### C BC ####[facility] Pbvomkfvsv1811 [place] [phone]. Farhat Elvis MCH (RBC) [Entitic mass] 31.1 pg Normal 25.9-34.0 [facility] Comment on above: Performed By: #### C BC ####[facility] Hzmntzijwb7583 [place] [address]Dr. Farhat Elvis MCHC (RBC) [Mass/Vol] 32.9 g/dL Normal 29.9-35.2 [facility] Comment on above: Performed By: #### C BC ####[facility] Vdajlpfryq3907 [place] [address]Dr. Farhat Elvis MCV (RBC) [Entitic vol] 94.6 fL Critically high 80.0-94.0 [facility] Comment on above: Performed By: #### C BC ####[facility] Vevmcbpeqi4328 [place] [phone]. Farhat Leal MONO # 1.2 103/ul Critically high 0.3-0.8 [facility] Comment on above: Performed By: #### C BC ####[facility] Jzgakojfea7854 [place] [phone]. Madelynlorri Leal Monocytes/100 WBC (Bld) 14.1 % Critically high 1.7-12.0 [facility] Comment on above: Performed By: #### C BC ####[facility] Yapysjghdi9[address] [place], [place] [address]Dr. Farhat Leal NEUT # 4.4 103/ul Normal 1.4-6.5 [facility] Comment on above: Performed By: #### C BC ####[facility] Xgcjfsimfd9717 [place] [phone]. Farhat Leal Neutrophils/100 WBC (Bld) 54.2 % Normal 43.0-75.0 [facility] Comment on above: Performed By: #### C BC ####[facility] Uksqlnmpmz8212 [place] [phone]. Farhat Leal Platelet mean volume (Bld) [Entitic vol] 9.9 fL Normal 9.5-13.5 [facility] Comment on above: Performed By: #### C BC ####[facility] O[address]ffxcieo[address] [place] [id number]. Farhat Elvis PLT 224 103/ul Normal 150-450 [facility] Comment on above: Performed By: #### C BC ####[facility] Zvjlesprwg2283 [place] [id number]. Farhat Leal RBC 4.11 106/ul Critically low 4.70-6.10 [facility] Comment on above: Performed By: #### C BC ####[facility] Dzbcjzezqf1711 [place] [id number]. Farhat Leal WBC 8.2 103/ul Normal 4.0-11.0 [facility] Comment on above: Performed By: #### C BC ####[facility] Dffxlblkuq2223 [place] [id number]. Farhat Leal PROF CHEM 8 (BAS METB)on Anion gap [Moles/Vol] 9.6 mmol/L Normal [facility] Comment on above: Performed By: #### B MP ####[facility] Pwdyljuvif0842 [place] [id number]. Farhat Leal Calcium [Mass/Vol] 8.6 mg/dL Normal 8.5-10.1 [facility] Comment on above: Performed By: #### B MP ####[facility] Kyenmthnew8499 [place] [id number]. Farhat Leal Chloride [Moles/Vol] 94 mmol/L Critically low 98-107 [facility] Comment on above: Performed By: #### B MP ####[facility] Qtotfqxegr3627 [place] [id number]. Farhat Leal CO2 [Moles/Vol] 28.1 mmol/L Normal 21.0-32.0 [facility] Comment on above: Performed By: #### B MP ####[facility] Aasgavaijt4872 [place] [id number]. Farhat Leal Creatinine [Mass/Vol] 1.91 mg/dL Critically high 0.70-1.30 [facility] Comment on above: Performed By: #### B MP ####[facility] Qxulwtfkvm7765 [place] [id number]. Farhat Leal EGFR-AF [place] 42 mL/min/1.73m2 Critically low >=60 [facility] Comment on above: Performed By: #### B MP ####[facility] Tkcxmsyihc[address] [place], [place] [address]Dr. Farhat Leal EGFR-NON AF [place] 34 mL/min/1.73m2 Critically low >=60 [facility] Comment on above: Performed By: #### B MP ####[facility] Asdjyxcbju8910[address] [place], [place] [address]Dr. Madelynlorri Elvis Glucose [Mass/Vol] 314 mg/dL Critically high 74-106 T [facility] Comment on above: Performed By: #### B MP ####[facility] Pjluxunqxp401[address] [place], [place] [address]Dr. Farhat Leal Potassium [Moles/Vol] 4.7 mmol/L Normal 3.5-5.1 [facility] Comment on above: Performed By: #### B MP ####[facility] Incsmphfcf950348 [address] [place], [place] [address]Dr. Farhat Leal Sodium [Moles/Vol] 127 mmol/L Critically low 136-145 Th [facility] Comment on above: Performed By: #### B MP ####[facility] Wzyiykfxqi1487[address] [place], [place] [address]Dr. Farhat Leal Urea nitrogen [Mass/Vol] 79.0 mg/dL Critically high 7.0-18.0 [facility] Comment on above: Result Comment: repe ated Performed By: #### B MP ####[facility] Yemfgknmkn434[address] [place], [place] [address]Dr. Farhat Leal Urea nitrogen/Creatinine [Mass ratio] 41.4 mg/mg Normal [facility] Comment on above: Performed By: #### B MP ####[facility] Fnjutcvzfg0810[address] [place], [place] [address]Dr. Farhat Elvis PTT HEPARIN MONITORon 2021 aPTT Coag (Bld) [Time] 56.7 s Critically high 39.5-54. 2 [facility] Comment on above: Performed By: #### P TTHEP ####[facility] Xdhsytykvr8117[address] [place], [place] [address]Dr. Farhat Elvis aPTT Coag (Bld) [Time] 42.7 s Normal 39.5-54.2 [facility] Comment on above: Performed By: #### P TTHEP ####[facility] Nqkavcuzor[address] [place], [place] [address]Dr. Farhat Elvis CBC AUTO DIFFon 09-23-2021 BASO # 0.1 103/ul Normal 0.0-0.1 [facility] Comment on above: Performed By: #### C BC ####[facility] Byqsncbjpx286348 [address] [place], [place] [address]Dr. Farhat Leal Basophils/100 WBC (Bld) 0.6 % Normal 0.2-2.0 [facility] Comment on above: Performed By: #### C BC ####[facility] Yphguyoxed790[address] [place], [place] [address]Dr. Madelynlorri Elvis EO # 0.2 103/ul Normal 0.0-0.7 [facility] Comment on above: Performed By: #### C BC ####[facility] Yatbwsstuw9335[address] [place], [place] [address]Dr. Farhat Leal Eosinophils/100 WBC (Bld) 2.6 % Normal 0.9-7.0 [facility] Comment on above: Performed By: #### C BC ####[facility] Kvklidkssb678[address] [place], [place] [address]Dr. Farhat Leal Erythrocyte distribution width (RBC) [Ratio] 12.4 % Normal 11.0-15.0 [facility] Comment on above: Performed By: #### C BC ####[facility] Pbtshtvplf5[address] [place] [address]Dr. Farhat Leal Hematocrit (Bld) [Volume fraction] 38.4 % Critically low 42.0-54.0 [facility] Comment on above: Performed By: #### C BC ####[facility] Feilwohpjm6572 [place] [address]Dr. Farhat Leal Hemoglobin (Bld) [Mass/Vol] 12.8 g/dL Critically low 14.0-18.0 [facility] Comment on above: Performed By: #### C BC ####[facility] Dldpzlftuw3505 [place] [address]Dr. Farhat Elvis IG # 0.06 10e3/ul Critically high 0.00-0.03 [facility] Comment on above: Performed By: #### C BC ####[facility] Hmwqbnusos3737[address] [place], [place] [address]Dr. Farhat Elvis IG % 0.8 % Critically high 0.0-0.5 [facility] Comment on above: Performed By: #### C BC ####[facility] Hsroseeceo5[address] [place], [place] [address]Dr. Farhat Elvis LYMPH # 1.5 103/ul Normal 1.2-3.8 [facility] Comment on above: Performed By: #### C BC ####[facility] Pwagpudkdl2370[address] [place], [place] [address]Dr. Madelynlorri Leal Lymphocytes/100 WBC (Bld) 19.7 % Critically low 20.5-60.0 [facility] Comment on above: Performed By: #### C BC ####[facility] Lzbhuuwtgg44[address] [place], [place] [address]Dr. Madelynlorri Leal MANUAL DIFF REQ NO Normal [facility] Comment on above: Performed By: #### C BC ####[facility] Wvdynolmki0609[address] [place], [place] [address]Dr. Farhat Leal MCH (RBC) [Entitic mass] 31.6 pg Normal 25.9-34.0 [facility] Comment on above: Performed By: #### C BC ####[facility] Wafnunccmx3469 [place] [address]Dr. Farhat Leal MCHC (RBC) [Mass/Vol] 33.3 g/dL Normal 29.9-35.2 [facility] Comment on above: Performed By: #### C BC ####[facility] Gzrrpwakzn25[address] [place] [address]Dr. Farhat Leal MCV (RBC) [Entitic vol] 94.8 fL Critically high 80.0-94.0 [facility] Comment on above: Performed By: #### C BC ####[facility] Aedyiyrjvc4103 [place] [address]Dr. Farhat Leal MONO # 1.0 103/ul Critically high 0.3-0.8 [facility] Comment on above: Performed By: #### C BC ####[facility] Boraiezvjv389[address] [place], [place] [address]Dr. aFrhat Elvis Monocytes/100 WBC (Bld) 13.0 % Critically high 1.7-12.0 [facility] Comment on above: Performed By: #### C BC ####[facility] Nwgnolkvdu8[address] [place] [address]Dr. Farhat Leal NEUT # 4.9 103/ul Normal 1.4-6.5 [facility] Comment on above: Performed By: #### C BC ####[facility] Bpdlmofhhk54[address] [place] [address]Dr. Farhat Elvis Neutrophils/100 WBC (Bld) 63.3 % Normal 43.0-75.0 [facility] Comment on above: Performed By: #### C BC ####[facility] Ihvkemjyxh9446 [place] [address]Dr. Farhat Leal Platelet mean volume (Bld) [Entitic vol] 10.7 fL Normal 9.5-13.5 [facility] Comment on above: Performed By: #### C BC ####[facility] Vbcjqoqrya5500 [place] [id number]. Farhat Leal PLT 205 103/ul Normal 150-450 [facility] Comment on above: Performed By: #### C BC ####[facility] Kkhziqmayt05[address] [place] [address]Dr. Farhat Leal RBC 4.05 106/ul Critically low 4.70-6.10 [facility] Comment on above: Performed By: #### C BC ####[facility] Ojhfvlmsgg0095 [place] [id number]. Farhat Leal WBC 7.7 103/ul Normal 4.0-11.0 [facility] Comment on above: Performed By: #### C BC ####[facility] Hqqurbpyui022[address] [place], [place] [address]Dr. Madelynlorri Leal PROF CHEM 8 (BAS METB)on Anion gap [Moles/Vol] 15.5 mmol/L Normal [facility] Comment on above: Performed By: #### B MP ####[facility] Auyuihsdkk87[address] [place], [place] [address]Dr. Farhat Leal Calcium [Mass/Vol] 9.1 mg/dL Normal 8.5-10.1 [facility] Comment on above: Performed By: #### B MP ####[facility] Ysctxktypw2465[address] [place], [place] [address]Dr. Farhat Leal Chloride [Moles/Vol] 92 mmol/L Critically low 98-107 [facility] Comment on above: Performed By: #### B MP ####[facility] Jopqfoycgy9028[address] [place], [place] [address]Dr. Farhat Leal CO2 [Moles/Vol] 28.5 mmol/L Normal 21.0-32.0 [facility] Comment on above: Performed By: #### B MP ####[facility] Jxlobiolar8169[address] [place], [place] [address]Dr. Farhat Leal Creatinine [Mass/Vol] 1.84 mg/dL Critically high 0.70-1.30 [facility] Comment on above: Performed By: #### B MP ####[facility] Bjywsctnhc9542 [place] [id number]. Madelynlrori Elvis EGFR-AF [place] 44 mL/min/1.73m2 Critically low >=60 [facility] Comment on above: Performed By: #### B MP ####[facility] Selspxinae8184 [place] [id number]. Farhat Leal EGFR-NON AF [place] 36 mL/min/1.73m2 Critically low >=60 [facility] Comment on above: Performed By: #### B MP ####[facility] Rafdcmktdx5551 [place] [id number]. Farhat Leal Glucose [Mass/Vol] 267 mg/dL Critically high 74-106 T [facility] Comment on above: Performed By: #### B MP ####[facility] Avgeupdzgq1724 [place] [address]Dr. Farhat Leal Potassium [Moles/Vol] 5.0 mmol/L Normal 3.5-5.1 [facility] Comment on above: Performed By: #### B MP ####[facility] Iedqjdwsbv9025 [place] [address]Dr. Farhat Leal Sodium [Moles/Vol] 131 mmol/L Critically low 136-145 [facility] Comment on above: Performed By: #### B MP ####[facility] Bwunlepdzk3722 [place] [address]Dr. Farhat Leal Urea nitrogen [Mass/Vol] 76.0 mg/dL Critically high 7.0-18.0 [facility] Comment on above: Performed By: #### B MP ####[facility] Pxajxlcudv4911 [place] [address]Dr. Farhat Leal Urea nitrogen/Creatinine [Mass ratio] 41.3 mg/mg Normal [facility] Comment on above: Performed By: #### B MP ####[facility] Tijopllmnk265[address] [place], [place] [address]Dr. Farhat Leal PTT HEPARIN MONITORon 2021 aPTT Coag (Bld) [Time] 45.5 s Normal 39.5-54.2 [facility] Comment on above: Performed By: #### P TTHEP ####[facility] Zvyslripmu422[address] [place], [place] [address]Dr. Farhat Leal aPTT Coag (Bld) [Time] 74.7 s Critically high 39.5-54. 2 [facility] Comment on above: Result Comment: repe ated Performed By: #### P TTHEP ####[facility] Jzutpbcgiy8558[address] [place], [place] [address]Dr. Farhat Elvis aPTT Coag (Bld) [Time] 57.2 s Critically high 39.5-54. 2 [facility] Comment on above: Performed By: #### P TTHEP ####[facility] Rzdzhuzszb8[address] [place], [place] [address]Dr. Farhat Elvis CBC AUTO DIFFon 09-22-2021 BASO # 0.1 103/ul Normal 0.0-0.1 [facility] Comment on above: Performed By: #### C BC ####[facility] Fputuzvjig8857[address] [place], [place] [address]Dr. Madelynlorri Leal Basophils/100 WBC (Bld) 0.7 % Normal 0.2-2.0 [facility] Comment on above: Performed By: #### C BC ####[facility] Wbnqawnxps4848[address] [place], [place] [address]Dr. Farhat Elvis EO # 0.3 103/ul Normal 0.0-0.7 [facility] Comment on above: Performed By: #### C BC ####[facility] Prgnnzyzzk156348 [address] [place], [place] [address]Dr. Farhat Leal Eosinophils/100 WBC (Bld) 3.2 % Normal 0.9-7.0 [facility] Comment on above: Performed By: #### C BC ####[facility] Xdppskgfwr8308[address] [place], [place] [address]Dr. Farhat Leal Erythrocyte distribution width (RBC) [Ratio] 12.5 % Normal 11.0-15.0 [facility] Comment on above: Performed By: #### C BC ####[facility] Evaghxtlix6544 [place] [address]Dr. Farhat Leal Hematocrit (Bld) [Volume fraction] 40.5 % Critically low 42.0-54.0 [facility] Comment on above: Performed By: #### C BC ####[facility] Xknbrpxpyp0996 [place] [address]Dr. Farhat Leal Hemoglobin (Bld) [Mass/Vol] 13.4 g/dL Critically low 14.0-18.0 [facility] Comment on above: Performed By: #### C BC ####[facility] Ryjaosymwc2147 [place] [address]Dr. Farhat Elvis IG # 0.11 10e3/ul Critically high 0.00-0.03 [facility] Comment on above: Performed By: #### C BC ####[facility] Nljaxazqgt1328 [place] [address]Dr. Farhat Leal IG % 1.3 % Critically high 0.0-0.5 [facility] Comment on above: Performed By: #### C BC ####[facility] Bplsalihuy8118 [place] [address]Dr. Madelynlorri Leal LYMPH # 1.7 103/ul Normal 1.2-3.8 [facility] Comment on above: Performed By: #### C BC ####[facility] Qcatqgfish4257 [place] [address]Dr. Farhat Elvis Lymphocytes/100 WBC (Bld) 19.6 % Critically low 20.5-60.0 [facility] Comment on above: Performed By: #### C BC ####[facility] Baygxoqneg8764 [place] [address]Dr. Madelynlorri Leal MANUAL DIFF REQ NO Normal [facility] Comment on above: Performed By: #### C BC ####[facility] Omvxagvvoi0440[address] [place], [place] [address]Dr. Farhat Elvis MCH (RBC) [Entitic mass] 31.1 pg Normal 25.9-34.0 [facility] Comment on above: Performed By: #### C BC ####[facility] Aksttakouf[address] [place], [place] [id number]. Farhat Leal MCHC (RBC) [Mass/Vol] 33.1 g/dL Normal 29.9-35.2 [facility] Comment on above: Performed By: #### C BC ####[facility] Ljnuwluihn5929 [place] [phone]. Farhat Leal MCV (RBC) [Entitic vol] 94.0 fL Normal 80.0-94.0 [facility] Comment on above: Performed By: #### C BC ####[facility] Nenvqbmezx9167 [place] [id number]. Farhat Leal MONO # 1.1 103/ul Critically high 0.3-0.8 [facility] Comment on above: Performed By: #### C BC ####[facility] Lbebmmfxqn8892 [place] [address]Dr. Farhat Elvis Monocytes/100 WBC (Bld) 12.7 % Critically high 1.7-12.0 [facility] Comment on above: Performed By: #### C BC ####[facility] Eyhangkbdc4265[address] [place], [place] [address]Dr. Farhat Leal NEUT # 5.3 103/ul Normal 1.4-6.5 [facility] Comment on above: Performed By: #### C BC ####[facility] Wjclhpjhjf0[address] [place], [place] [id number]. Farhat Elvis Neutrophils/100 WBC (Bld) 62.5 % Normal 43.0-75.0 [facility] Comment on above: Performed By: #### C BC ####[facility] Meyggekkut248[address] [place], [place] [id number]. Farhat Leal Platelet mean volume (Bld) [Entitic vol] 10.1 fL Normal 9.5-13.5 [facility] Comment on above: Performed By: #### C BC ####[facility] Fmbqhsbrri495[address] [place], [place] [address]Dr. Farhat Elvis PLT 220 103/ul Normal 150-450 [facility] Comment on above: Performed By: #### C BC ####[facility] Zknwnkbdvj8381 [place] [address]Dr. Madelynlorri Elvis RBC 4.31 106/ul Critically low 4.70-6.10 [facility] Comment on above: Performed By: #### C BC ####[facility] Dzhcuecpyk6216 [place] [address]Dr. Farhat Leal WBC 8.4 103/ul Normal 4.0-11.0 [facility] Comment on above: Performed By: #### C BC ####[facility] Qgadouvnwh5224 [place] [address]Dr. Farhat Leal PROF CHEM 8 (BAS METB)on Anion gap [Moles/Vol] 15.5 mmol/L Normal [facility] Comment on above: Performed By: #### B MP ####[facility] Oknxxmkhva332[address] [place], [place] [address]Dr. Farhat Leal Calcium [Mass/Vol] 8.9 mg/dL Normal 8.5-10.1 [facility] Comment on above: Performed By: #### B MP ####[facility] Kjucrxvzfm9449[address] [place], [place] [address]Dr. Farhat Leal Chloride [Moles/Vol] 92 mmol/L Critically low 98-107 [facility] Comment on above: Performed By: #### B MP ####[facility] Woicrigvyx2113 [place] [address]Dr. Farhat Leal CO2 [Moles/Vol] 25.7 mmol/L Normal 21.0-32.0 [facility] Comment on above: Performed By: #### B MP ####[facility] Nqkqfdgipo4632 [place] [address]Dr. Farhat Leal Creatinine [Mass/Vol] 1.85 mg/dL Critically high 0.70-1.30 [facility] Comment on above: Performed By: #### B MP ####[facility] Fkrfatnroq045348 [address] [place], [place] [address]Dr. Farhat Leal EGFR-AF [place] 43 mL/min/1.73m2 Critically low >=60 [facility] Comment on above: Performed By: #### B MP ####[facility] Awgyddjemd4897[address] [place], [place] [address]Dr. Madelynlorri Elvis EGFR-NON AF [place] 36 mL/min/1.73m2 Critically low >=60 [facility] Comment on above: Performed By: #### B MP ####[facility] Lizbjxwxbb44224[address] [place], [place] [address]Dr. Farhat Leal Glucose [Mass/Vol] 410 mg/dL Critically high 74-106 T [facility] Comment on above: Performed By: #### B MP ####[facility] Xqgbydfict3755[address] [place], [place] [address]Dr. Farhat Leal Potassium [Moles/Vol] 5.2 mmol/L Critically high 3.5-5.1 [facility] Comment on above: Performed By: #### B MP ####[facility] Vbhrxavdls0525[address] [place], [place] [address]Dr. Farhat Leal Sodium [Moles/Vol] 128 mmol/L Critically low 136-145 Th [facility] Comment on above: Performed By: #### B MP ####[facility] Xihxqdtxue3212[address] [place], [place] [address]Dr. Farhat Leal Urea nitrogen [Mass/Vol] 75.0 mg/dL Critically high 7.0-18.0 [facility] Comment on above: Performed By: #### B MP ####[facility] Akxzioxsih8455[address] [place], [place] [address]Dr. Farhat Leal Urea nitrogen/Creatinine [Mass ratio] 40.5 mg/mg Normal [facility] Comment on above: Performed By: #### B MP ####[facility] Ocnwlxoebc8834[address] [place], [place] [address]Dr. Faraht Leal PTT HEPARIN MONITORon 2021 aPTT Coag (Bld) [Time] 53.8 s Normal 39.5-54.2 Th [facility] Comment on above: Performed By: #### P TTHEP ####[facility] Wvyddzjxnp4967[address] [place], [place] [address]Dr. Farhat Leal aPTT Coag (Bld) [Time] 46.1 s Normal 39.5-54.2 Th [facility] Comment on above: Performed By: #### P TTHEP ####[facility] Irfhbthaox5101[address] [place], [place] [address]Dr. Farhat Leal aPTT Coag (Bld) [Time] 55.6 s Critically high 39.5-54. 2 [facility] Comment on above: Performed By: #### P TTHEP ####[facility] Nkbvbefcwi5889[address] [place], [place] [address]Dr. Farhat Elvis aPTT Coag (Bld) [Time] 51.2 s Normal 39.5-54.2 Th [facility] Comment on above: Performed By: #### P TTHEP ####[facility] Oulhcnwejj116[address] [place], [place] [address]Dr. Farhat Elvis CBC AUTO DIFFon 09-21-2021 BASO # 0.1 103/ul Normal 0.0-0.1 [facility] Comment on above: Performed By: #### C BC ####[facility] Fuzjeyksoo434[address] [place], [place] [address]Dr. Farhat Leal Basophils/100 WBC (Bld) 0.8 % Normal 0.2-2.0 [facility] Comment on above: Performed By: #### C BC ####[facility] Uloxptsmdq8412[address] [place], [place] [address]Dr. Farhat Elvis EO # 0.4 103/ul Normal 0.0-0.7 [facility] Comment on above: Performed By: #### C BC ####[facility] Qcfzusfoxu3216[address] [place], [place] [address]Dr. Farhat Leal Eosinophils/100 WBC (Bld) 4.3 % Normal 0.9-7.0 [facility] Comment on above: Performed By: #### C BC ####[facility] Zbeptnemvu548[address] [place], [place] [address]Dr. Farhat Elvis Erythrocyte distribution width (RBC) [Ratio] 12.5 % Normal 11.0-15.0 [facility] Comment on above: Performed By: #### C BC ####[facility] Tlsslzqmbd0166 [place] [address]Dr. Farhat Leal Hematocrit (Bld) [Volume fraction] 40.8 % Critically low 42.0-54.0 [facility] Comment on above: Performed By: #### C BC ####[facility] Oqywnlpkai7451 [place] [address]Dr. Farhat Leal Hemoglobin (Bld) [Mass/Vol] 13.5 g/dL Critically low 14.0-18.0 [facility] Comment on above: Performed By: #### C BC ####[facility] Mhtqkuxfmg0246 [place] [address]Dr. Farhat Leal IG # 0.10 10e3/ul Critically high 0.00-0.03 [facility] Comment on above: Performed By: #### C BC ####[facility] Ijwtzndjcr6634 [place] [address]Dr. Farhat Leal IG % 1.2 % Critically high 0.0-0.5 [facility] Comment on above: Performed By: #### C BC ####[facility] Wrffudaqbp9014 [place] [address]Dr. Farhat Leal LYMPH # 1.3 103/ul Normal 1.2-3.8 [facility] Comment on above: Performed By: #### C BC ####[facility] Ifzcvceoqe1383 [place] [address]Dr. Farhat Leal Lymphocytes/100 WBC (Bld) 15.4 % Critically low 20.5-60.0 [facility] Comment on above: Performed By: #### C BC ####[facility] Fuybrbpqje0853 [place] [address]Dr. Madelynlorri Leal MANUAL DIFF REQ NO Normal [facility] Comment on above: Performed By: #### C BC ####[facility] Qlvunvgzka704[address] [place], [place] [address]Dr. Farhat Leal MCH (RBC) [Entitic mass] 31.0 pg Normal 25.9-34.0 [facility] Comment on above: Performed By: #### C BC ####[facility] Suzqnngpdl8933 [place] [id number]. Farhat Leal MCHC (RBC) [Mass/Vol] 33.1 g/dL Normal 29.9-35.2 [facility] Comment on above: Performed By: #### C BC ####[facility] Rjdkepfxrw8408 [place] [phone]. Farhat Leal MCV (RBC) [Entitic vol] 93.8 fL Normal 80.0-94.0 [facility] Comment on above: Performed By: #### C BC ####[facility] Wwreyzwzor2047 [place] [id number]. Farhat Leal MONO # 1.2 103/ul Critically high 0.3-0.8 [facility] Comment on above: Performed By: #### C BC ####[facility] Sfwtosphcb6992 [place] [address]Dr. Madelynlorri Leal Monocytes/100 WBC (Bld) 13.6 % Critically high 1.7-12.0 [facility] Comment on above: Performed By: #### C BC ####[facility] Gegqshmkdb4324 [place] [id number]. Farhat Leal NEUT # 5.5 103/ul Normal 1.4-6.5 [facility] Comment on above: Performed By: #### C BC ####[facility] Vddanhyxho3097 [place] [id number]. Farhat Elvis Neutrophils/100 WBC (Bld) 64.7 % Normal 43.0-75.0 [facility] Comment on above: Performed By: #### C BC ####[facility] Egquvzhhos1149 [place] [id number]. Farhat Leal Platelet mean volume (Bld) [Entitic vol] 9.8 fL Normal 9.5-13.5 [facility] Comment on above: Performed By: #### C BC ####[facility] Pggjasgeeu0954 [place] [id number]. Farhat Elvis PLT 206 103/ul Normal 150-450 [facility] Comment on above: Performed By: #### C BC ####[facility] Ybfwbdjmbl1077 [place] [id number]. Farhat Leal RBC 4.35 106/ul Critically low 4.70-6.10 [facility] Comment on above: Performed By: #### C BC ####[facility] Zse[address]jmeynm[address] [place] [id number]. Farhat Leal WBC 8.4 103/ul Normal 4.0-11.0 [facility] Comment on above: Performed By: #### C BC ####[facility] Ogiuiyhcsi[address] [place] [address]Dr. Farhat Leal PROF CHEM 8 (BAS METB)on Anion gap [Moles/Vol] 12.3 mmol/L Normal [facility] Comment on above: Performed By: #### B MP ####[facility] Ojistfmppd[address] [place], [place] [address]Dr. Farhat Leal Calcium [Mass/Vol] 8.6 mg/dL Normal 8.5-10.1 [facility] Comment on above: Performed By: #### B MP ####[facility] Ilypmgvlga[address] [place], [place] [address]Dr. Farhat Leal Chloride [Moles/Vol] 94 mmol/L Critically low 98-107 [facility] Comment on above: Performed By: #### B MP ####[facility] Dhkpwmgjnq6833[address] [place], [place] [address]Dr. Farhat Leal CO2 [Moles/Vol] 30.8 mmol/L Normal 21.0-32.0 [facility] Comment on above: Performed By: #### B MP ####[facility] Pigbpcvsly486[address] [place], [place] [address]Dr. Farhat Leal Creatinine [Mass/Vol] 1.99 mg/dL Critically high 0.70-1.30 [facility] Comment on above: Performed By: #### B MP ####[facility] Okdpnqtnpi4255[address] [place], [place] [address]Dr. Farhat Leal EGFR-AF [place] 40 mL/min/1.73m2 Critically low >=60 [facility] Comment on above: Performed By: #### B MP ####[facility] Zfwnlepkrp[address] [place] [address]Dr. Farhat Leal EGFR-NON AF [place] 33 mL/min/1.73m2 Critically low >=60 [facility] Comment on above: Performed By: #### B MP ####[facility] Henfgacffw57[address] [place] [address]Dr. Farhat Leal Glucose [Mass/Vol] 264 mg/dL Critically high 74-106 T [facility] Comment on above: Performed By: #### B MP ####[facility] Lqlyfybcbc26[address] [place] [address]Dr. Farhat Leal Potassium [Moles/Vol] 5.1 mmol/L Normal 3.5-5.1 [facility] Comment on above: Performed By: #### B MP ####[facility] Tyzlmovmhk568[address] [place], [place] [address]Dr. Farhat Leal Sodium [Moles/Vol] 132 mmol/L Critically low 136-145 Th [facility] Comment on above: Performed By: #### B MP ####[facility] Zdinushevd4548[address] [place], [place] [address]Dr. Farhat Leal Urea nitrogen [Mass/Vol] 72.0 mg/dL Critically high 7.0-18.0 [facility] Comment on above: Performed By: #### B MP ####[facility] Wsmljjuhxx839[address] [place], [place] [address]Dr. Farhat Leal Urea nitrogen/Creatinine [Mass ratio] 36.2 mg/mg Normal [facility] Comment on above: Performed By: #### B MP ####[facility] Tkhovchwas[address]264[address] [place], [place] [address]Dr. Farhat Leal PTT HEPARIN MONITORon 2021 aPTT Coag (Bld) [Time] 126.9 s Critically high 39.5-54. 2 [facility] Comment on above: Performed By: #### P TTHEP ####[facility] Tjryaawwrl9917[address] [place], [place] [address]Dr. Farhat Leal aPTT Coag (Bld) [Time] 53.5 s Normal 39.5-54.2 Th [facility] Comment on above: Performed By: #### P TTHEP ####[facility] Wevhjharqt2234[address] [place], [place] [address]Dr. Farhat Leal aPTT Coag (Bld) [Time] 69.4 s Critically high 39.5-54. 2 [facility] Comment on above: Performed By: #### P TTHEP ####[facility] Lmuhwrbhzh0745[address] [place], [place] [address]Dr. Farhat Leal aPTT Coag (Bld) [Time] 68.0 s Critically high 39.5-54. 2 [facility] Comment on above: Performed By: #### P TTHEP ####[facility] Wipcvdlqyo0488[address] [place], [place] [address]Dr. Farhat Leal aPTT Coag (Bld) [Time] 45.3 s Normal 39.5-54.2 [facility] Comment on above: Performed By: #### P TTHEP ####[facility] Uvvdwzbfku25264[address] [place], [place] [address]Dr. Farhat Leal CBC AUTO DIFFon 09-20-2021 BASO # 0.1 103/ul Normal 0.0-0.1 [facility] Comment on above: Performed By: #### C BC ####[facility] Oymgioupyq310[address] [place], [place] [address]Dr. Farhat Elvis Basophils/100 WBC (Bld) 0.7 % Normal 0.2-2.0 [facility] Comment on above: Performed By: #### C BC ####[facility] Irquecgfzp6516[address] [place], [place] [address]Dr. Farhat Leal EO # 0.2 103/ul Normal 0.0-0.7 [facility] Comment on above: Performed By: #### C BC ####[facility] Viqfmokazu1333[address] [place], [place] [address]Dr. Farhat Elvis Eosinophils/100 WBC (Bld) 3.2 % Normal 0.9-7.0 [facility] Comment on above: Performed By: #### C BC ####[facility] Qmezpyozdp5272 [place] [id number]. Farhat Leal Erythrocyte distribution width (RBC) [Ratio] 12.4 % Normal 11.0-15.0 [facility] Comment on above: Performed By: #### C BC ####[facility] Kocmrvqyiz[address] [place] [address]Dr. Farhat Leal Hematocrit (Bld) [Volume fraction] 40.1 % Critically low 42.0-54.0 [facility] Comment on above: Performed By: #### C BC ####[facility] Fmzgqutxed6[address] [place] [address]Dr. Farhat Leal Hemoglobin (Bld) [Mass/Vol] 13.4 g/dL Critically low 14.0-18.0 [facility] Comment on above: Performed By: #### C BC ####[facility] Gfitdrrici7017[address] [place], [place] [address]Dr. Farhat Leal IG # 0.08 10e3/ul Critically high 0.00-0.03 [facility] Comment on above: Performed By: #### C BC ####[facility] Zfgmojrtek4200[address] [place], [place] [address]Dr. Farhat Leal IG % 1.1 % Critically high 0.0-0.5 [facility] Comment on above: Performed By: #### C BC ####[facility] Xrqfczrgzs0635[address] [place], [place] [address]Dr. Farhat Leal LYMPH # 1.3 103/ul Normal 1.2-3.8 [facility] Comment on above: Performed By: #### C BC ####[facility] Doknyrhrza934[address] [place], [place] [address]Dr. Farhat Leal Lymphocytes/100 WBC (Bld) 17.3 % Critically low 20.5-60.0 [facility] Comment on above: Performed By: #### C BC ####[facility] Yafvpjgcgf172[address] [place], [place] [address]Dr. Farhat Leal MANUAL DIFF REQ NO Normal [facility] Comment on above: Performed By: #### C BC ####[facility] Xhsiyxqzkl1733 [place] [id number]. Farhat Leal MCH (RBC) [Entitic mass] 31.2 pg Normal 25.9-34.0 [facility] Comment on above: Performed By: #### C BC ####[facility] Xoqapchqwn7276 [place] [id number]. Farhat Leal MCHC (RBC) [Mass/Vol] 33.4 g/dL Normal 29.9-35.2 [facility] Comment on above: Performed By: #### C BC ####[facility] F[address]uwhmyxt34[address] [place] [id number]. Farhat Leal MCV (RBC) [Entitic vol] 93.3 fL Normal 80.0-94.0 [facility] Comment on above: Performed By: #### C BC ####[facility] Byqwdqefxy89[address] [place] [address]Dr. Farhat Leal MONO # 0.9 103/ul Critically high 0.3-0.8 [facility] Comment on above: Performed By: #### C BC ####[facility] Snvtahpfhd8[address] [place] [address]Dr. Madelynlorri Leal Monocytes/100 WBC (Bld) 12.4 % Critically high 1.7-12.0 [facility] Comment on above: Performed By: #### C BC ####[facility] Zomqcbpanx184[address] [place], [place] [address]Dr. Farhat Leal NEUT # 4.7 103/ul Normal 1.4-6.5 [facility] Comment on above: Performed By: #### C BC ####[facility] Xdalhkkaer3422 [place] [id number]. Farhat Leal Neutrophils/100 WBC (Bld) 65.3 % Normal 43.0-75.0 [facility] Comment on above: Performed By: #### C BC ####[facility] Qikgyrdkpx2920 [place] [id number]. Madelynlorri Elvis Platelet mean volume (Bld) [Entitic vol] 9.9 fL Normal 9.5-13.5 [facility] Comment on above: Performed By: #### C BC ####[facility] Sqafcpsnga[address] [place] [address]Dr. Farhat Leal PLT 180 103/ul Normal 150-450 [facility] Comment on above: Performed By: #### C BC ####[facility] Qapdbtsxcx5734 [place] [address]Dr. Farhat Leal RBC 4.30 106/ul Critically low 4.70-6.10 [facility] Comment on above: Performed By: #### C BC ####[facility] Rlwhmvzibc6939 [place] [address]Dr. Farhat Leal WBC 7.2 103/ul Normal 4.0-11.0 [facility] Comment on above: Performed By: #### C BC ####[facility] Nhvzwgfssj836[address] [place], [place] [address]Dr. Farhat Leal PTT HEPARIN MONITORon 2021 aPTT Coag (Bld) [Time] 139.0 s Critically high 39.5-54. 2 [facility] Comment on above: Performed By: #### P TTHEP ####[facility] Wygbgknfrf8938[address] [place], [place] [address]Dr. Farhat Leal aPTT Coag (Bld) [Time] 27.6 s Critically low 39.5-54.2 [facility] Comment on above: Performed By: #### P TTHEP ####[facility] Bqorzcqbtg4516[address] [place], [place] [address]Dr. Farhat Leal aPTT Coag (Bld) [Time] 121.0 s Critically high 39.5-54. 2 [facility] Comment on above: Performed By: #### P TTHEP ####[facility] Ybighwcbby6387[address] [place], [place] [address]Dr. Farhat Leal aPTT Coag (Bld) [Time] 26.7 s Critically low 39.5-54.2 [facility] Comment on above: Performed By: #### P TTHEP ####[facility] Uivjzqlywt276[address] [place], [place] [address]Dr. Farhat Leal CBC AUTO DIFFon 09-19-2021 BASO # 0.0 103/ul Normal 0.0-0.1 [facility] Comment on above: Performed By: #### C BC ####[facility] Ekudqdwvvg26[address] [place] [address]Dr. Farhat Leal Basophils/100 WBC (Bld) 0.5 % Normal 0.2-2.0 [facility] Comment on above: Performed By: #### C BC ####[facility] Lqqwzycudf7343 [place] [address]Dr. Farhat Leal EO # 0.2 103/ul Normal 0.0-0.7 [facility] Comment on above: Performed By: #### C BC ####[facility] Gqmlctkmdj9[address] [place], [place] [address]Dr. Farhat Leal Eosinophils/100 WBC (Bld) 2.6 % Normal 0.9-7.0 [facility] Comment on above: Performed By: #### C BC ####[facility] Nzvxxqwfab913[address] [place], [place] [address]Dr. Farhat Leal Erythrocyte distribution width (RBC) [Ratio] 12.5 % Normal 11.0-15.0 [facility] Comment on above: Performed By: #### C BC ####[facility] Cvqajaugxi69[address] [place], [place] [address]Dr. Farhat Leal Hematocrit (Bld) [Volume fraction] 39.2 % Critically low 42.0-54.0 [facility] Comment on above: Performed By: #### C BC ####[facility] Khpmwziljc336[address] [place], [place] [address]Dr. Farhat Leal Hemoglobin (Bld) [Mass/Vol] 13.3 g/dL Critically low 14.0-18.0 [facility] Comment on above: Performed By: #### C BC ####[facility] Rrpychrekm65[address] [place] [address]Dr. Farhat Leal IG # 0.08 10e3/ul Critically high 0.00-0.03 [facility] Comment on above: Performed By: #### C BC ####[facility] Bcadrnatlr2972 [place] [id number]. Farhat Leal IG % 0.9 % Critically high 0.0-0.5 [facility] Comment on above: Performed By: #### C BC ####[facility] Kfgukqakco95[address] [place] [id number]. Farhat Leal LYMPH # 1.5 103/ul Normal 1.2-3.8 [facility] Comment on above: Performed By: #### C BC ####[facility] Jlwlvzeuit1468 [place] [id number]. Farhat Leal Lymphocytes/100 WBC (Bld) 17.2 % Critically low 20.5-60.0 [facility] Comment on above: Performed By: #### C BC ####[facility] Ruqrvbuzit2461 [place] [id number]. Farhat Elvis MANUAL DIFF REQ NO Normal [facility] Comment on above: Performed By: #### C BC ####[facility] Fkswxcmrbd0715 [place] [phone]. Farhat Leal MCH (RBC) [Entitic mass] 31.7 pg Normal 25.9-34.0 [facility] Comment on above: Performed By: #### C BC ####[facility] Cu[address]abwqyp8697 [place] [phone]. Farhat Leal MCHC (RBC) [Mass/Vol] 33.9 g/dL Normal 29.9-35.2 [facility] Comment on above: Performed By: #### C BC ####[facility] Eibvczikrn9545 [place] [id number]. Farhat Leal MCV (RBC) [Entitic vol] 93.3 fL Normal 80.0-94.0 [facility] Comment on above: Performed By: #### C BC ####[facility] Ootszctbdk3668 [place] [id number]. Farhat Elvis MONO # 1.2 103/ul Critically high 0.3-0.8 [facility] Comment on above: Performed By: #### C BC ####[facility] Thoegcvxqk2319 [place] [id number]. Farhat Leal Monocytes/100 WBC (Bld) 13.7 % Critically high 1.7-12.0 [facility] Comment on above: Performed By: #### C BC ####[facility] Sdggvzyriy8172 [place] [id number]. Farhat Leal NEUT # 5.5 103/ul Normal 1.4-6.5 [facility] Comment on above: Performed By: #### C BC ####[facility] Eosxolvbyn2345 [place] [id number]. Farhat Leal Neutrophils/100 WBC (Bld) 65.1 % Normal 43.0-75.0 [facility] Comment on above: Performed By: #### C BC ####[facility] Fcevunkezb0804 [place] [phone]. Farhat Leal Platelet mean volume (Bld) [Entitic vol] 9.6 fL Normal 9.5-13.5 [facility] Comment on above: Performed By: #### C BC ####[facility] Ungcnhflnz5427 [place] [phone]. Farhat Leal PLT 163 103/ul Normal 150-450 [facility] Comment on above: Performed By: #### C BC ####[facility] Ekwuzhxdka3204 [place] [phone]. Farhat Leal RBC 4.20 106/ul Critically low 4.70-6.10 [facility] Comment on above: Performed By: #### C BC ####[facility] Lhlivvviey9207 [place] [id number]. Farhat Leal WBC 8.4 103/ul Normal 4.0-11.0 [facility] Comment on above: Performed By: #### C BC ####[facility] Cngiazwkts1777 [place] [phone]. Farhat Leal POINT OF CARE GLUCOSEon 08-0 Glucose [Mass/Vol] 300 mg/dL Critically high 74-106 T [facility] Comment on above: Performed By: #### P OCGLUC ####[facility] Nworooopzm2108 [place] [address]Dr. Farhat Leal POTASSIUMon 09-19-2021 Potassium [Moles/Vol] 4.9 mmol/L Normal 3.5-5.1 [facility] Comment on above: Performed By: #### K ####[facility] Tvzpqrqzac[address] [place], [place] [address]Dr. Farhat Elvis PTT HEPARIN MONITORon 2021 aPTT Coag (Bld) [Time] 81.0 s Critically high 39.5-54. 2 [facility] Comment on above: Result Comment: Test Repeated. Critical Value Verified Performed By: #### P TTHEP ####[facility] Pbqhkxyeko596[address] [place], [place] [address]Dr. Farhat Elvis aPTT Coag (Bld) [Time] 101.2 s Critically high 39.5-54. 2 [facility] Comment on above: Performed By: #### P TTHEP ####[facility] Ibotffumgt49264[address] [place], [place] [address]Dr. Farhat Elvis aPTT Coag (Bld) [Time] 23.4 s Critically low 39.5-54.2 [facility] Comment on above: Result Comment: repe ated Performed By: #### P TTHEP ####[facility] Yeytckpbtv09[address] [place], [place] [address]Dr. Farhat Elvis CBC AUTO DIFFon 09-18-2021 BASO # 0.0 103/ul Normal 0.0-0.1 [facility] Comment on above: Performed By: #### C BC ####[facility] Pzszjxxgyk19[address] [place], [place] [address]Dr. Farhat Elvis BASO # 0.0 103/ul Normal 0.0-0.1 [facility] Comment on above: Performed By: #### C BC ####[facility] Xtdonlglpu7385[address] [place], [place] [address]Dr. Farhat Leal Basophils/100 WBC (Bld) 0.4 % Normal 0.2-2.0 [facility] Comment on above: Performed By: #### C BC ####[facility] Gnoesrbawp88[address] [place], [place] [address]Uk. Farhat Leal Basophils/100 WBC (Bld) 0.4 % Normal 0.2-2.0 [facility] Comment on above: Performed By: #### C BC ####[facility] Slgfpcuyma4124 [place], [place] [address]Jz. Farhat Leal EO # 0.1 103/ul Normal 0.0-0.7 [facility] Comment on above: Performed By: #### C BC ####[facility] Gprhxmrqvs7326 [place], [place] [address]Vq. Farhat Leal EO # 0.1 103/ul Normal 0.0-0.7 [facility] Comment on above: Performed By: #### C BC ####[facility] Pdzzjtvcow5955 [place] [phone]. Farhat Leal Eosinophils/100 WBC (Bld) 1.1 % Normal 0.9-7.0 [facility] Comment on above: Performed By: #### C BC ####[facility] Ofxljvhcnf3091 [place] [phone]. Farhat Leal Eosinophils/100 WBC (Bld) 0.8 % Critically low 0.9-7.0 [facility] Comment on above: Performed By: #### C BC ####[facility] Oavquvwjqa6233 [place] [phone]. Farhat Leal Erythrocyte distribution width (RBC) [Ratio] 12.6 % Normal 11.0-15.0 [facility] Comment on above: Performed By: #### C BC ####[facility] Cnunukuhpt0130 [place] [phone]. Farhat Leal Erythrocyte distribution width (RBC) [Ratio] 12.4 % Normal 11.0-15.0 [facility] Comment on above: Performed By: #### C BC ####[facility] Wfimlqefun0939 [place] [phone]. Farhat Leal Hematocrit (Bld) [Volume fraction] 40.8 % Critically low 42.0-54.0 [facility] Comment on above: Performed By: #### C BC ####[facility] Waylhjodvl8451 [place] [phone]. Farhat Leal Hematocrit (Bld) [Volume fraction] 41.7 % Critically low 42.0-54.0 [facility] Comment on above: Performed By: #### C BC ####[facility] Fnjhfvvsvx0638 [place] [address]Dr. Farhat Leal Hemoglobin (Bld) [Mass/Vol] 13.6 g/dL Critically low 14.0-18.0 [facility] Comment on above: Performed By: #### C BC ####[facility] Pfegtmjjjy7545 [place] [address]Dr. Farhat Leal Hemoglobin (Bld) [Mass/Vol] 14.1 g/dL Normal 14.0-18.0 [facility] Comment on above: Performed By: #### C BC ####[facility] Yfzptewhbv14[address] [place], [place] [address]Dr. Farhat Leal IG # 0.08 10e3/ul Critically high 0.00-0.03 [facility] Comment on above: Performed By: #### C BC ####[facility] Guqqzwnfiz8398[address] [place], [place] [address]Dr. Farhat Leal IG # 0.06 10e3/ul Critically high 0.00-0.03 [facility] Comment on above: Performed By: #### C BC ####[facility] Rcpaarztde126[address] [place], [place] [address]Dr. Farhat Leal IG % 0.9 % Critically high 0.0-0.5 [facility] Comment on above: Performed By: #### C BC ####[facility] Zdymducpdw1250[address] [place], [place] [address]Dr. Farhat Leal IG % 0.6 % Critically high 0.0-0.5 [facility] Comment on above: Performed By: #### C BC ####[facility] Uchnunkckd766[address] [place], [place] [address]Dr. Farhat Leal LYMPH # 0.8 103/ul Critically low 1.2-3.8 [facility] Comment on above: Performed By: #### C BC ####[facility] Knnrpdigvm5245 [place] [phone]. Farhat Leal LYMPH # 0.6 103/ul Critically low 1.2-3.8 [facility] Comment on above: Performed By: #### C BC ####[facility] Qlryjluogs3179 [place] [phone]. Farhat Leal Lymphocytes/100 WBC (Bld) 8.7 % Critically low 20.5-60.0 [facility] Comment on above: Performed By: #### C BC ####[facility] Iwjqkduwka7989 [place] [address]Dr. Farhat Leal Lymphocytes/100 WBC (Bld) 6.5 % Critically low 20.5-60.0 [facility] Comment on above: Performed By: #### C BC ####[facility] Sshlifndbj22[address] [place], [place] [address]Dr. Farhat Elvis MANUAL DIFF REQ NO Normal [facility] Comment on above: Performed By: #### C BC ####[facility] Xybpkilqqf3982 [place] [address]Dr. Farhat Elvis MANUAL DIFF REQ NO Normal [facility] Comment on above: Performed By: #### C BC ####[facility] Jjmlhhjazn0120 [place] [phone]. Farhat Elvis MCH (RBC) [Entitic mass] 31.6 pg Normal 25.9-34.0 [facility] Comment on above: Performed By: #### C BC ####[facility] Aslwpqzetk6803 [place] [phone]. Farhat Elvis MCH (RBC) [Entitic mass] 31.6 pg Normal 25.9-34.0 [facility] Comment on above: Performed By: #### C BC ####[facility] Ycrwuxgbsl65[address] [place], [place] [address]Dr. Farhat Elvis MCHC (RBC) [Mass/Vol] 33.3 g/dL Normal 29.9-35.2 [facility] Comment on above: Performed By: #### C BC ####[facility] Cobnnbrcsk5868 [place] [phone]. Farhat Leal MCHC (RBC) [Mass/Vol] 33.8 g/dL Normal 29.9-35.2 [facility] Comment on above: Performed By: #### C BC ####[facility] Ivdsnyxrjb5773 [place] [phone]. Farhat Leal MCV (RBC) [Entitic vol] 94.9 fL Critically high 80.0-94.0 [facility] Comment on above: Performed By: #### C BC ####[facility] Rxdujznqya1221 [place] [phone]. Farhat Leal MCV (RBC) [Entitic vol] 93.5 fL Normal 80.0-94.0 [facility] Comment on above: Performed By: #### C BC ####[facility] Tllaiujfrx180[address] [place], [place] [address]Dr. Farhat Leal MONO # 1.0 103/ul Critically high 0.3-0.8 [facility] Comment on above: Performed By: #### C BC ####[facility] Wcyuabayyb8583 [place] [id number]. Farhat Leal MONO # 1.0 103/ul Critically high 0.3-0.8 [facility] Comment on above: Performed By: #### C BC ####[facility] Wgxnnpvemw7797 [place] [phone]. Farhat Leal Monocytes/100 WBC (Bld) 11.3 % Normal 1.7-12.0 [facility] Comment on above: Performed By: #### C BC ####[facility] Pfppmbqlae[address] [place], [place] [id number]. Farhat Leal Monocytes/100 WBC (Bld) 10.4 % Normal 1.7-12.0 [facility] Comment on above: Performed By: #### C BC ####[facility] Ktdifgcycj02[address] [place], [place] [id number]. Farhat Leal NEUT # 6.9 103/ul Critically high 1.4-6.5 [facility] Comment on above: Performed By: #### C BC ####[facility] Wqitefwydq2318 [place] [address]Dr. Farhat Leal NEUT # 7.8 103/ul Critically high 1.4-6.5 [facility] Comment on above: Performed By: #### C BC ####[facility] Ouylumnypt7027 [place] [address]Dr. Farhat Leal Neutrophils/100 WBC (Bld) 77.6 % Critically high 43.0-75.0 [facility] Comment on above: Performed By: #### C BC ####[facility] Pwtwnsuvcg7248 [place] [address]Dr. Farhat Leal Neutrophils/100 WBC (Bld) 81.3 % Critically high 43.0-75.0 [facility] Comment on above: Performed By: #### C BC ####[facility] Mamnmejddm39[address] [place], [place] [address]Dr. Farhat Leal Platelet mean volume (Bld) [Entitic vol] 9.7 fL Normal 9.5-13.5 [facility] Comment on above: Performed By: #### C BC ####[facility] Tkusoahtab77[address] [place], [place] [address]Dr. Farhat Leal Platelet mean volume (Bld) [Entitic vol] 9.9 fL Normal 9.5-13.5 [facility] Comment on above: Performed By: #### C BC ####[facility] Wgcgnvraox307[address] [place], [place] [address]Dr. Farhat Leal PLT 171 103/ul Normal 150-450 [facility] Comment on above: Performed By: #### C BC ####[facility] Fccffxsgkd108[address] [place], [place] [address]Dr. Farhat Leal PLT 169 103/ul Normal 150-450 [facility] Comment on above: Performed By: #### C BC ####[facility] Gvxtgzfyzu7403 [place] [address]Dr. Farhat Leal RBC 4.30 106/ul Critically low 4.70-6.10 [facility] Comment on above: Performed By: #### C BC ####[facility] Mcl[address] [place], [place] [address]Bf. Farhat Leal RBC 4.46 106/ul Critically low 4.70-6.10 [facility] Comment on above: Performed By: #### C BC ####[facility] Xwfhhjkjlg[address] [place], [place] [address]Pd. Farhat Leal WBC 8.9 103/ul Normal 4.0-11.0 [facility] Comment on above: Performed By: #### C BC ####[facility] Ddtirxaarl97[address] [place], [place] [address]Hf. Farhat Leal WBC 9.6 103/ul Normal 4.0-11.0 [facility] Comment on above: Performed By: #### C BC ####[facility] Sys[address]qfxsv[address] [place] [id number]. Farhat Leal Covid-19 PCR (CVDTB)on SARS-CoV-2 (COVID-19) RNA JOSH+probe Ql (Unsp spec) Not detected Normal NOT DETECTED [facility] Comment on above: Result [...] for this test is supported by the Pyrometer Temperature Regulator of Health and Human Service's declaration that [...] be used). Performed By: #### C VDTBH ####[facility] [address]uj[address] [place] [id number]. Farhat Leal PROF 14(COMP METB)on 022 Albumin [Mass/Vol] 2.5 g/dL Critically low 3.4-5.0 Th [facility] Comment on above: Performed By: #### T SH, CMP ####[facility] Af[address]im[address] [place] [address]Dr. Farhat Leal Albumin [Mass/Vol] 2.6 g/dL Critically low 3.4-5.0 Th [facility] Comment on above: Performed By: #### C MP ####[facility] C[address]mj[address] [place], [place] [address]Dr. Farhat Leal Albumin/Globulin [Mass ratio] 0.7 {ratio} Normal [facility] Comment on above: Performed By: #### T MYRIAM, CMP ####[facility] Jswizoocyk[address] [place], [place] [address]Dr. Farhat Leal Albumin/Globulin [Mass ratio] 0.7 {ratio} Normal [facility] Comment on above: Performed By: #### C MP ####[facility] [address] [place], [place] [address]Dr. Farhat Leal ALP [Catalytic activity/Vol] 83 U/L Normal 46-116 [facility] Comment on above: Performed By: #### T MYRIAM, CMP ####[facility] Sroewaqnuc[address] [place], [place] [address]Dr. Madelynlorri Leal ALP [Catalytic activity/Vol] 88 U/L Normal 46-116 [facility] Comment on above: Performed By: #### C MP ####[facility] Z[address]vruwgcp[address] [place], [place] [address]Dr. Farhat Leal ALT [Catalytic activity/Vol] 16 U/L Normal 16-63 [facility] Comment on above: Performed By: #### T SH, CMP ####[facility] Tgbgcdubje[address] [place], [place] [address]Dr. Madelynlorri Leal ALT [Catalytic activity/Vol] 15 U/L Critically low 16-63 [facility] Comment on above: Performed By: #### C MP ####[facility] W[address]vas[address]hmr27[address] [place] [id number]. Farhat Leal Anion gap [Moles/Vol] 9.7 mmol/L Normal [facility] Comment on above: Performed By: #### T SH, CMP ####[facility] H[address]yc[address] [place], [place] [id number]. Farhat Leal Anion gap [Moles/Vol] 11.7 mmol/L Normal [facility] Comment on above: Performed By: #### C MP ####[facility] Iiaybywews[address] [place], [place] [address]Dr. Farhat Leal AST [Catalytic activity/Vol] 27 U/L Normal 15-37 [facility] Comment on above: Performed By: #### T SH, CMP ####[facility] Yxwrgsvokl[address] [place], [place] [address]Dr. Farhat Leal AST [Catalytic activity/Vol] 25 U/L Normal 15-37 [facility] Comment on above: Performed By: #### C MP ####[facility] Hrmrotagbm[address] [place], [place] [address]Dr. Madelynlan Leal Bilirubin [Mass/Vol] 0.5 mg/dL Normal 0.2-1.0 [facility] Comment on above: Performed By: #### T SH, CMP ####[facility] Jzwhnrjndk[address] [place], [place] [address]Dr. Madelynlan Leal Bilirubin [Mass/Vol] 0.6 mg/dL Normal 0.2-1.0 [facility] Comment on above: Performed By: #### C MP ####[facility] Vliedaivnt[address] [place], [place] [address]Dr. Madelynlan Lela Calcium [Mass/Vol] 8.8 mg/dL Normal 8.5-10.1 [facility] Comment on above: Performed By: #### T SH, CMP ####[facility] Tbyssotfsx24[address] [place], [place] [address]Dr. Madelynlan Leal Calcium [Mass/Vol] 8.9 mg/dL Normal 8.5-10.1 [facility] Comment on above: Performed By: #### C MP ####[facility] Hxlgkksccb[address] [place], [place] [id number]. Yilan Leal Chloride [Moles/Vol] 95 mmol/L Critically low 98-107 [facility] Comment on above: Performed By: #### T SH, CMP ####[facility] Thphdoyyvh[address] [place], [place] [address]Dr. Yilan Leal Chloride [Moles/Vol] 93 mmol/L Critically low 98-107 [facility] Comment on above: Performed By: #### C MP ####[facility] Dgcxrwqxyr2[address] [place], [place] [address]Dr. Yilan Leal CO2 [Moles/Vol] 30.5 mmol/L Normal 21.0-32.0 The [facility] Comment on above: Performed By: #### T SH, CMP ####[facility] Wwgygdjcli313[address] [place], [place] [address]Dr. Yilan Leal CO2 [Moles/Vol] 28.9 mmol/L Normal 21.0-32.0 [facility] Comment on above: Performed By: #### C MP ####[facility] Giqmlkccka[address] [place], [place] [address]Dr. Yilan Leal Creatinine [Mass/Vol] 2.18 mg/dL Critically high 0.70-1.30 [facility] Comment on above: Performed By: #### T SH, CMP ####[facility] Wufsizyxef[address] [place], [place] [address]Dr. Yilan Leal Creatinine [Mass/Vol] 2.09 mg/dL Critically high 0.70-1.30 [facility] Comment on above: Performed By: #### C MP ####[facility] Gnghjsogej[address] [place], [place] [address]Dr. Yilan Leal EGFR-AF [place] 36 mL/min/1.73m2 Critically low >=60 [facility] Comment on above: Performed By: #### T SH, CMP ####[facility] Ypnfksmfxi7[address] [place], [place] [address]Dr. Yilan Leal EGFR-AF [place] 38 mL/min/1.73m2 Critically low >=60 [facility] Comment on above: Performed By: #### C MP ####[facility] [address]etb[address]ogjc[address] [place] [id number]. Yilan Leal EGFR-NON AF [place] 30 mL/min/1.73m2 Critically low >=60 [facility] Comment on above: Performed By: #### T SH, CMP ####[facility] [address]jdv[address] [place] [id number]. Yilan Leal EGFR-NON AF [place] 31 mL/min/1.73m2 Critically low >=60 [facility] Comment on above: Performed By: #### C MP ####[facility] Nfmpymktsy55[address] [place] [id number]. Madelynlan Leal Globulin (S) [Mass/Vol] 3.5 g/dL Normal [facility] Comment on above: Performed By: #### T SH, CMP ####[facility] Ywhakyxmko[address] [place], [place] [address]Dr. Madelynlan Leal Globulin (S) [Mass/Vol] 3.7 g/dL Normal [facility] Comment on above: Performed By: #### C MP ####[facility] Qvielsytzh43[address] [place] [address]Dr. Madelynlan Leal Glucose [Mass/Vol] 141 mg/dL Critically high 74-106 [facility] Comment on above: Performed By: #### T SH, CMP ####[facility] Dowyveiscf[address] [place] [address]Dr. Madelynlan Leal Glucose [Mass/Vol] 214 mg/dL Critically high 74-106 [facility] Comment on above: Performed By: #### C MP ####[facility] Qqcjkhqxdj[address] [place], [place] [address]Dr. Madelynlan Leal Potassium [Moles/Vol] 5.2 mmol/L Critically high 3.5-5.1 [facility] Comment on above: Performed By: #### T SH, CMP ####[facility] Stxaxlqlks[address] [place], [place] [address]Dr. Yilan Leal Potassium [Moles/Vol] 5.6 mmol/L Critically high 3.5-5.1 [facility] Comment on above: Performed By: #### C MP ####[facility] [address]kcd[address] [place] [id number]. Yilan Leal Protein [Mass/Vol] 6.0 g/dL Critically low 6.4-8.2 Th [facility] Comment on above: Performed By: #### T SH, CMP ####[facility] Npjexmehtt[address] [place], [place] [address]Dr. Yilan Leal Protein [Mass/Vol] 6.3 g/dL Critically low 6.4-8.2 Th [facility] Comment on above: Performed By: #### C MP ####[facility] Dctceakemu[address] [place], [place] [address]Dr. Yilan Leal Sodium [Moles/Vol] 130 mmol/L Critically low 136-145 Th [facility] Comment on above: Performed By: #### T SH, CMP ####[facility] Yemkrucslc[address] [place], [place] [address]Dr. Yilan Leal Sodium [Moles/Vol] 128 mmol/L Critically low 136-145 Th [facility] Comment on above: Performed By: #### C MP ####[facility] Lrnlsigsgb[address] [place], [place] [address]Dr. Yilan Leal Urea nitrogen [Mass/Vol] 63.0 mg/dL Critically high 7.0-18.0 [facility] Comment on above: Performed By: #### T SH, CMP ####[facility] Rndkxbiufi[address] [place], [place] [address]Dr. Yilan Leal Urea nitrogen [Mass/Vol] 65.0 mg/dL Critically high 7.0-18.0 [facility] Comment on above: Performed By: #### C MP ####[facility] [address]pbew[address] [place], [place] [address]Dr. Yilan Leal Urea nitrogen/Creatinine [Mass ratio] 28.9 mg/mg Normal [facility] Comment on above: Performed By: #### T SH, CMP ####[facility] Mc[address]eg[address] [place], [place] [address]Dr. Yilan Leal Urea nitrogen/Creatinine [Mass ratio] 31.1 mg/mg Normal [facility] Comment on above: Performed By: #### C MP ####[facility] [address]ixat[address] [place] [address]Dr. Farhat Leal PROTIMEon 09-18-2021 INR Coag (PPP) [Relative time] 1.06 {INR} Normal [facility] Comment on above: Performed By: #### P T, PTT ####[facility] [address] [place] [address]Dr. Farhat Leal INR GUIDELINES SEE BELOW Normal [facility] Comment on above: Result Comment: MALINA RED INR: 2.0 - 3.0 CONDITIONS NOT LISTED BELOW 2.5 - 3.5 FOR PROSTHETIC HEART VALVE REPLACEMENT 2.5 - 3.5 RECURRENT THROMBOSIS Performed By: #### P T, PTT ####[facility] [address] [place] [address]Dr. Farhat Leal PT Coag (PPP) [Time] 11.4 s Normal 9.0-11.6 [facility] Comment on above: Performed By: #### P T, PTT ####[facility] [address]zbflpl[address] [place] [address]Dr. Farhat Leal PTTon 09-18-2021 aPTT Coag (Bld) [Time] 27.9 s Normal 22.3-36.2 Th [facility] Comment on above: Performed By: #### P T, PTT ####[facility] [address] [place] [address]Dr. Farhat Leal TSHon 09-18-2021 TSH 7.099 uIU/mL Critically high 0.358-3.740 [facility] Comment on above: Performed By: #### T SH, CMP ####[facility] [address]ewfcnxon[address] [place], [place] [address]Dr. Farhat Leal US SALOME DOP LEG RTon 09-19-19 US SALOME DOP LEG RT Normal [facility] XR HIP RT 2 3V W PELVISon XR HIP RT 2 3V W PELVIS Normal [facility] Social History Date Type Detail Facility Start: 03-18-2023 Alcohol intake Ex-drinker (finding) [facility] Start: 02-26-2022 End: 10-20-2022 Sex Assigned At [facility] Work Phone: Start: 09-25-2021 History SDOH Financial 5 [facility] Start: 09-25-2021 History SDOH Food Worry 1 [facility] Start: 09-25-2021 History SDOH Transpo rt Med 2 [facility] Start: 09-14-2021 End: 01-12-2022 Exposure to SARS-CoV-2 (event) Not sure [facility] Start: 04-08-2021 End: 02-26-2022 Alcohol intake Current drinker of alcohol (finding) [facility] Start: 03-09-2011 End: 07-07-2022 Tobacco smoking status NHIS Ex-smoker [facility] Work Phone: Start: 03-09-2011 End: 10-20-2022 Cigarettes smoked current (pack per day) - Reported 1 [facility] Work Phone: Start: 03-09-2011 End: 02-26-2022 Tobacco use and exposure Smokeless tobacco non-user [facility] Start: 1945 Sex Assigned At Not on file C [facility] Start: 1945 Sex Assigned At Male F [facility] End: 02-15-1975 History of tobacco use Current smoker [facility] Work Phone: End: 02-15-1975 History of tobacco use Cigarette Smoker [facility] Work Phone: How hard is it for y ou to pay for the very basics like food, housing, medical care, and heating Not hard at all [facility] Work Phone: (I/We) worried wheth er (my/our) food would run out before (I/we) got money to buy more. Never true [facility] Work Phone: In the past 12 month s, was there a time when you were not able to pay the mortgage or rent on time? No [facility] Work Phone: How often to you hav e a drink containing alcohol? Never [facility] Vital Signs Date Time Vital Sign Value Performing Clinician Facility 03-18-2023 13:37-0500 Body temperature 98.01 [degF] Ni Petznick DO Work Phone: [facility] 03-18-2023 13:37-0500 Diastolic blood pressure 64 mm[Hg] Ni Petznick DO Work Phone: [facility] 03-18-2023 13:37-0500 Heart rate 72 /min Ni Petznick DO Work Phone: [facility] 03-18-2023 13:37-0500 SaO2% (BldA) [Mass fraction] 98 % Ni Petznick DO Work Phone: [facility] 03-18-2023 13:37-0500 Systolic blood pressure 118 mm[Hg] Ni Petznick DO Work Phone: [facility] 07-20-2022 13:35-0400 Body temperature 97.4 [degF] DO Devon Ball Work Phone: [facility] 07-20-2022 13:35-0400 Diastolic blood pressure 50 mm[Hg] DO Devon Ball Work Phone: [facility] 07-20-2022 13:35-0400 Heart rate 67 /min DO Devon Ball Work Phone: [facility] 07-20-2022 13:35-0400 Respiratory rate 20 /min DO Devon Ball Work Phone: [facility] 07-20-2022 13:35-0400 Systolic blood pressure 98 mm[Hg] DO Devon Ball Work Phone: [facility] 06-29-2022 14:46-0400 Body height 193.04 cm DO Devon Ball Work Phone: [facility] 02-26-2022 13:11-0500 Body temperature 96.6 [degF] Hina Peterson MD Work Phone: [facility] 02-26-2022 13:11-0500 Diastolic blood pressure 75 mm[Hg] Hina Peterson MD Work Phone: [facility] 02-26-2022 13:11-0500 Heart rate 75 /min Hina Peterson MD Work Phone: [facility] 02-26-2022 13:11-0500 Systolic blood pressure 88 mm[Hg] Hina Peterson MD Work Phone: [facility] 02-05-2022 08:29-0500 Body temperature 96.69 [degF] [facility] Work Phone: [facility] 02-05-2022 08:29-0500 Diastolic blood pressure 42 mm[Hg] [facility] Work Phone: [facility] 02-05-2022 08:29-0500 Heart rate 79 /min [facility] Work Phone: [facility] 02-05-2022 08:29-0500 SaO2% (BldA) [Mass fraction] 100 % [facility] Work Phone: [facility] 02-05-2022 08:29-0500 Systolic blood pressure 72 mm[Hg] [facility] Work Phone: [facility] 01-12-2022 11:00-0500 Diastolic blood pressure 54 mm[Hg] Alissa Major BORDER MEASURER.PREPARED FOODS PRODUCTION TEAM MEMBER Work Phone: [facility] 01-12-2022 11:00-0500 Heart rate 88 /min Alissa Major BORDER MEASURER.PREPARED FOODS PRODUCTION TEAM MEMBER Work Phone: [facility] 01-12-2022 11:00-0500 SaO2% (BldA) [Mass fraction] 93 % Alissa Major BORDER MEASURER.PREPARED FOODS PRODUCTION TEAM MEMBER Work Phone: [facility] 01-12-2022 11:00-0500 Systolic blood pressure 96 mm[Hg] Alissa Major BORDER MEASURER.PREPARED FOODS PRODUCTION TEAM MEMBER Work Phone: [facility] 01-12-2022 10:12-0500 Body temperature 97.9 [degF] Alissa Major BORDER MEASURER.PREPARED FOODS PRODUCTION TEAM MEMBER Work Phone: [facility] 01-12-2022 10:12-0500 Respiratory rate 18 /min Alissa Major BORDER MEASURERSkylarPREPARED FOODS PRODUCTION TEAM MEMBER Work Phone: [facility] 11-17-2021 15:59-0400 Body height 193 cm No Reeder DO Work Phone: [facility] 11-17-2021 15:59-0400 Body weight 111.58 kg No Reeder DO Work Phone: [facility] 11-17-2021 15:59-0400 Diastolic blood pressure 59 mm[Hg] No Reeder DO Work Phone: [facility] 11-17-2021 15:59-0400 Heart rate 86 /min No Reeder DO Work Phone: [facility] 11-17-2021 15:59-0400 SaO2% (BldA) [Mass fraction] 97 % No Reeder DO Work Phone: [facility] 11-17-2021 15:59-0400 Systolic blood pressure 104 mm[Hg] No Reeder DO Work Phone: [facility] Clinical Notes 06-05-2021 to 05-19-2023 Note Date & Type Note Facility 05-19-2023 Note [place] Electrophys[facility] Progress Note Reason for visit: follow [...] at about 50-60 systolic. patient with friend/ courtesy bus driver from facility, we will take patient to the ER for evaluation ---- --------- Per dr. Alvarez 03/2021 Mr. Almonte, [place] , presents to clinic for routine follow [...] of the right coronary artery with robust oqrn-rh-ngjfk collaterals. 5. Normal global left ventricular systolic [...] Follow up with Dr. Galvez in the [facility] in the next 2 weeks; he may follow up with Dr. Orosco as needed for interventional issues. 5. Follow up wi (more content not included)... [facility] 04-11-2023 Evaluation note Encounter Date Diagnosis [...] (ICD-10 - Z89.619) WC dependent. 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 He is being transported by a courtesy bus driver. 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 [facility] [id number] Evaluation note* Encounter Date Diagnosis Assessment Notes [...] are maintaining regular scheduled appts with their centrifugal screen tender. No bleeding complications Dec, Hyperlipidemia LDL goal [...] fluid balance and to avoid dehydration. 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 This patient is anticoagulated to prevent thromboembolic events. They are maintaining regular scheduled appts with their centrifugal screen tender. 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 No bleeding complications Oct, Type 1 diabetes [...] Continue routine surveillance labs. 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 DX Code Needed. 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 No bleeding complications Sep, Type 1 diabetes [...] risk for cerebrovascular and cardiovascular disease. Sep, halfway (current) use of insulin (ICD-10 - Z79.4) Sep, Kidney transplant status (ICD-10 - Z94.0) f/u transplant clinic Continue surveillance labs [facility] Other 08-08-2023 Miscellaneous Notes* Telephone Encounter - Ariadna Mcdowell Tech - 09/22/2022 8:58 AM EDT Pharmacy requesting refills as follows: Requested Prescriptions Pending Prescriptions Disp Refills tacrolimus IR (PROGRAF) 1 mg capsule Sig: Take 1 capsule by mouth DAILY AT 6 PM. Please review and advise. Ariadna Mcdowell, documented [facility]* Encounter Date Diagnosis Assessment Notes Treatment Notes Treatment Clinical Notes Aug, Longstanding persistent atrial fibrillation (ICD-10 - I48.11) This patient is in NSR or rate controlled. This patient is anticoagulated to prevent thromboembolic events. They are maintaining regular scheduled appts with their centrifugal screen tender. No s/s bleeding Aug, Type 1 diabetes [...] risk for cerebrovascular and cardiovascular disease. Aug, halfway (current) use of insulin (ICD-10 - Z79.4) Aug, Kidney transplant status (ICD-10 - Z94.0) Continue close surveillance w/ [facility] Other 07-26-2023 NoteUT Electrophysiology Consult Note Reason [...] at about 50-60 systolic. patient with friend/ courtesy bus driver from facility, we will take patient [...] of the right coronary artery with robust cqzo-zp-jrhcz collaterals. 5. Normal global left ventricular systolic [...] up with Dr. Galvez in the [facility] in the next 2 weeks; he may follow up with Dr. Orosco as needed for interventional issues. 5. Follow up with Dr. Devon Moreira as scheduled. PMH: Past Medical History: Diagnosis Date Abnormal ECG Arrhythmia Atrial fibrillation (CMS/HCC) Chronic kidney disease Coronary artery disease Diabetes mellitus (CMS/HCC) (more content not included)...[facility]07-26-2023 NotePatient here for 1.5 year follow up and device check. Lightheaded in the office today, as BP is very low. He denies chest pain, SOB, palpitations, and bleeding on warfarin. Had routine labs last week. Review of Systems Musculoskeletal: Positive for arthritis, joint pain and myalgias. Neurological: Positive for light-headedness. All other systems reviewed and are negative.[facility] 08-06-2022 Evaluation note* Encounter Date Diagnosis [...] are maintaining regular scheduled appts with their centrifugal screen tender. No bleeding complications Jul, Type 1 diabetes [...] risk for cerebrovascular and cardiovascular disease. Jul, halfway (current) use of insulin (ICD-10 - Z79.4) Jul, Kidney transplant status (ICD-10 - Z94.0) Monthly labs, ongoing surveillance from transplant clinic [facility] Other 05-15-2023 Progress note Author Sadia Aguilar [facility] June 29, 2022 2:47pm Note Date/Time June 29, 2022 2:46p m [facility] [address] [place] [address] Wound Center Provider Note Signed Patient: Alex Almonte MR#: [id number] : 1945 Acct:[id number] Age/Sex: 76 / M Copies to: DO Sadia Whyte APRN~ HPI Date of Visit Date of Visit: Date of Service: 06/29/2022 Time of Service: 14:45 Narrative HPI: 12/30/21 Alex is a 76 year old male presenting to [facility] wound care for aninitial visit for eval and treatment of a sacral/coccyx area pressure ulcer. He resides at [facility]. There is an BULB PLANTER present for the visit. Medicalhoney gel will [...] his brief that was cleaned by this board writer as well as another nursing staff [...] from initial visit here Mode of Arrival/ On Site Soil Evaluator: Facility vehicle Assistive Device Used Today: Wheelchair and Indra Lives with:: Care/Nursing Facility Appetite Description: Within Normal Limits Who helps w/ dressing change?: Nursing Facility Why Do You Need Help?: Can't Reach Ulcer, Limited mobility and Taxing effort to leave home Smoking Status: Former smoker [facility] Medical History (Updated 03/03/22 @ 14:41 [...] Ulcer/Injury Staging: Unstageable Bed Appearance: Beefy Red, Delanson, Yellow and Rolled Edges Percent of Wound [...] By: <Electronically signed by DAVID Aguilar> 06/29/221446 [facility] Work Phone: 1(297) 374-629405-11-2023 Evaluation note* Encounter Date Diagnosis Assessment Notes [...] are maintaining regular scheduled appts with their centrifugal screen tender. No bleeding complications June, Hyperlipidemia LDL goal <100 (ICD-10 - E78.5) Instructed on diet and exercise with continued statin therapy.Discussed the beneficial effects of lowering cholesterol in reducing the risk for cerebrovascular and cardiovascular disease. 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 - Z79.4) June, Kidney transplant status (ICD-10 - Z94.0) No s/s rejection Advaxis Other 04-24-2023 Progress note Author Sadia Aguilar [facility] June 08, 2022 2:10pm Note Date/Time June 08, 2022 2:1 0pm [facility] [address] [place] [address] Wound Center Provider Note Signed Patient: Alex Almonte MR#: [id number] : 1945 Acct:[id number] Age/Sex: 76 / M Copies to: DO Sadia Whyte APRN~ HPI Date of Visit Date of Visit: Date of Service: 06/08/2022 Time of Service: 14:07 Narrative HPI: 12/30/21 Alex is a 76 year old male presenting to [facility] wound care for aninitial visit for eval and treatment of a sacral/coccyx area pressure ulcer. He resides at [facility]. There is an BULB PLANTER present for the visit. Medicalhoney gel will [...] his brief that was cleaned by this board writer as well as another nursing staff [...] from initial visit here Mode of Arrival/ On Site Soil Evaluator: Facility vehicle Assistive Device Used Today: Wheelchair and Indra Lives with:: Care/Nursing Facility Appetite Description: Within Normal Limits Who helps w/ dressing change?: Nursing Facility Why Do You Need Help?: Can't Reach Ulcer, Limited mobility and Taxing effort to leave home Smoking Status: Former smoker [facility] Medical History (Updated 03/03/22 @ 14:41 [...] Ulcer/Injury Staging: Unstageable Bed Appearance: Beefy Red, Delanson, Yellow and Rolled Edges Percent of Wound [...] <Electronically signed by DAVID Aguilar> 06/08/22 1410 [facility] Work Phone: 1([phone]) 608-182204-21-2023 Evaluation note* Encounter Date Diagnosis Assessment Notes [...] are maintaining regular scheduled appts with their centrifugal screen tender. 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 No open ulcerations present Pain controlled Advaxis Other 03-27-2023 Progress note Author Sadia Aguilar [facility] May 11, 2022 1:41pm Note Date/Time May 11, 2022 1:4 0pm [facility] [address] [place] [address] Wound Center Provider Note Signed Patient: Alex Almonte MR#: [id number] : 1945 Acct:[id number] Age/Sex: 76 / M Copies to: Devon Moreira,DO Sadia Aguilar, BORDER MEASURER~ HPI Date of Visit Date of Visit: Date of Service: 05/11/2022 Time of Service: 13:38 Narrative HPI: 12/30/21 Alex is a 76 year old male presenting to [facility] wound care for aninitial visit for eval and treatment of a sacral/coccyx area pressure ulcer. He resides at [facility]. There is an BULB PLANTER present for the visit. Medicalhoney gel will [...] his brief that was cleaned by this board writer as well as another nursing staff [...] from initial visit here Mode of Arrival/ On Site Soil Evaluator: Facility vehicle Assistive Device Used Today: Wheelchair and Indra Lives with:: Care/Nursing Facility Appetite Description: Within Normal Limits Who helps w/ dressing change?: Nursing Facility Why Do You Need Help?: Can't Reach Ulcer, Limited mobility and Taxing effort to leave home Smoking Status: Former smoker [facility] Medical History (Updated 03/03/22 @ 14:41 [...] Ulcer/Injury Staging: Unstageable Bed Appearance: Beefy Red, Delanson and Yellow Percent of Wound Bed Granulated/Red: [...] <Electronically signed by DAVID Aguilar> 05/11/22 1341 [facility] Work Phone: [phone]) 447-301303-23-2023 Evaluation note* Encounter Date Diagnosis Assessment Notes [...] are maintaining regular scheduled appts with their centrifugal screen tender. Apr, Type 1 diabetes mellitus with hyperglycemia [...] are reviewed at the office visit Apr, halfway (current) use of insulin (ICD-10 - Z79.4) Apr, Kidney transplant status (ICD-10 - Z94.0) Serial labs by clinic Hydrate, avoid NOLBERTO Advaxis Other 03-10-2023 NoteHNO ID: [id number] Author: Keyur Brown MD Service: ? Author Type: Physician Type: Progress Notes Filed: 04/24/2022 10:32 AM Note Text: Encounter opened in error, patient not seen.[facility]02-28-2023 Progress note Author Sadia Aguilar [facility] April 14, 2022 2:19pm Note Date/Time April 14, 2022 2:18pm [facility] [address] [place] [address] Wound Center Provider Note Signed Patient: Alex Almonte MR#: [id number] : 1945 Acct:[id number] Age/Sex: 76 / M Copies to: DO Sadia Whyte APRN~ HPI Date of Visit Date of Visit: Date of Service: 04/14/2022 Time of Service: 14:18 Narrative HPI: 12/30/21 Alex is a 76 year old male presenting to [facility] wound care for aninitial visit for eval and treatment of a sacral/coccyx area pressure ulcer. He resides at [facility]. There is an BULB PLANTER present for the visit. Medicalhoney gel will [...] his brief that was cleaned by this board writer as well as another nursing staff [...] from initial visit here Mode of Arrival/ On Site Soil Evaluator: Facility vehicle Assistive Device Used Today: Wheelchair and Indra Lives with:: Care/Nursing Facility Appetite Description: Within Normal Limits Who helps w/ dressing change?: Nursing Facility Why Do You Need Help?: Can't Reach Ulcer, Limited mobility and Taxing effort to leave home Smoking Status: Former smoker [facility] Medical History (Updated 03/03/22 @ 14:41 [...] Ulcer/Injury Staging: Unstageable Bed Appearance: Beefy Red, Delanson and Yellow Percent of Wound Bed Granulated/Red: [...] <Electronically signed by DAVID Aguilar> 04/14/22 141 [facility] Work Phone: [phone]) 217-394302-16-2023 NotePatient Outreach (KIDMMN) ALEX ALMONTE ([id number]) 1945 M TRN Date Time Provider Department 04/02/22 VAN OLIVAREZ During your visit today, we recorded the following information about you: Allergies As of Date: 04/02/2022 Noted Allergy Reaction PYRIDOSTIGMINE BROMIDE 08/04/2021 8 - GI Upset Date Reviewed: 02/26/2022 Reviewed by: Braden Abel MA - Fully Assessed Visit Diagnosis:Screening for genitourinary condition [Z13.89] Order(s):URINALYSIS, REFLEX MICROSCOPIC [[id number]] Order #: [id number] Prescriptions as of 04/06/2022 - tacrolimus IR [...] by mouth daily with lunch. Magic Cup [place] with lunch - aspirin, enteric coated (ASPIRIN, ENTERIC COATED) 81 mg EC tablet Take 1 tablet by mouth once daily. - atorvastatin (LIPITOR) 40 mg tablet 1 tablet by ORAL/FEEDING TUBE route daily at bedtime. - predniSONE (DELTASONE) 5 mg tablet TAKE 1 TABLET BY MOUTH EVERY DAY Problem List As Of Date 04/02/2022 Noted Resolved ULCER OF LOWER LIMB, UNSPEC [L97.861] 02/24/2002 DIAB RENAL MANIF ADULT-UNCONTRLLD [E11.29, E11.*02/24/2002 Type 2 diabetes mellitus with diabetic neuropat*02/24/2002 DIABETES UNCOMPL ADULT-UNCONTRLLED [[id number]] 02/24/2002 KIDNEY TRANSPLANT STATUS [Z94.0] 09/07/2003 PROPHYLACTIC IMMUNOTHERAPY [Z29.8] 07/30/2006 INTERMEDIATE STEROIDS [[id number]] 07/30/2006 VITAMIN D DEFICIENCY NOS [E55.9] 09/07/2008 [...] perfusion [R09.89] 09/30/2021 PAD (peripheral artery disease) ([facility]) [I73.9] 09/26/2021 Osteomyelitis (HCC) [M86.9] 11/29/2021 Class 1 obesity due to excess calories with ser*11/29/2021 Mixed hyperlipidemia due to type 2 diabetes myles*11/29/2021 Type 2 diabetes mellitus with diabetic peripher*11/29/2021 Atherosclerosis of [place] artery of extremity w*11/29/2021 Malnutrition of moderate degree (HCC) [E44.0] 12/01/2021 Dermatitis associated with moisture [L30.8] 12/04/2021 Encounter Status:Closed by [facility] on 04/06/22[facility] 03-30-2022 Miscellaneous Notes* Telephone Encounter - Van [...] to pharmacy. Katina Duque documented in this encounterGreen Cross Hospital02-07-2023 Progress note Author Sadia Aguilar [facility] March 24, 2022 3:00pm Note Date/Time March 24, 2022 2 :59pm [facility] [address] [place] [address] Wound Center Provider Note Signed Patient: Alex Almonte MR#: [id number] : 1945 Acct:[id number] Age/Sex: 76 / M Copies to: DO Sadia Whyte APRN~ HPI Date of Visit Date of Visit: Date of Service: 03/24/2022 Time of Service: 14:58 Narrative HPI: 12/30/21 Alex is a 76 year old male presenting to [facility] wound care for aninitial visit for eval and treatment of a sacral/coccyx area pressure ulcer. He resides at [facility]. There is an BULB PLANTER present for the visit. Medicalhoney gel will [...] his brief that was cleaned by this board writer as well as another nursing staff [...] from initial visit here Mode of Arrival/ On Site Soil Evaluator: Facility vehicle Assistive Device Used Today: Wheelchair and Indra Lives with:: Care/Nursing Facility Appetite Description: Within Normal Limits Who helps w/ dressing change?: Nursing Facility Why Do You Need Help?: Can't Reach Ulcer, Limited mobility and Taxing effort to leave home Smoking Status: Former smoker [facility] Medical History (Updated 03/03/22 @ 14:41 [...] Ulcer/Injury Staging: Unstageable Bed Appearance: Beefy Red, Delanson and Yellow Percent of Wound Bed Granulated/Red: [...] <Electronically signed by DAVID Aguilar> 03/24/22 1500 [facility] Work Phone: 1(883) 924-114601-17-2023 Progress note Author Sadia Aguilar [facility] March 03, 2022 2:41pm Note Date/Time March 03, 2022 2 :41pm [facility] [address] [place] [address] Wound Center Provider Note Signed Patient: Alex Almonte MR#: [id number] : 1945 Acct:[id number] Age/Sex: 76 / M Copies to: DO Sadia Whyte APRN~ HPI Date of Visit Date of Visit: Date of Service: 03/03/2022 Time of Service: 14:38 Narrative HPI: 12/30/21 Alex is a 76 year old male presenting to [facility] wound care for aninitial visit for eval and treatment of a sacral/coccyx area pressure ulcer. He resides at [facility]. There is an BULB PLANTER present for the visit. Medicalhoney gel will [...] his brief that was cleaned by this board writer as well as another nursing staff [...] from initial visit here Mode of Arrival/ On Site Soil Evaluator: Facility vehicle Assistive Device Used Today: Wheelchair and Indra Lives with:: Care/Nursing Facility Appetite Description: Within Normal Limits Who helps w/ dressing change?: Nursing Facility Why Do You Need Help?: Can't Reach Ulcer, Limited mobility and Taxing effort to leave home Smoking Status: Former smoker [facility] Medical History (Updated 03/03/22 @ 14:41 [...] Ulcer Pressure Ulcer/Injury Staging: Unstageable Bed Appearance: Del[place] and Yellow Percent of Wound Bed Granulated/Red: 90 Percent of Devitalized: 10 Length (cm): 2.2 Width (cm): 1.8 Depth (cm): 1.9 CM Sq: 3.960 Surrounding Tissue Appearance: [place], Hyperpigmented and Satellite lesions Surrounding Tissue Temp: [...] <Electronically signed by DAVID Aguilar> 03/03/22 14[address] [facility] Work Phone: [phone] Miscellaneous Notes* Telephone Encounter - RAUL Davidson - 02/27/2022 10:24 AM EST Patient phones requesting refills as follows: Per pts sister takes 1 mg in AM and 1 mg in PM Requested Prescriptions Pending Prescriptions Disp Refills tacrolimus IR (PROGRAF) 1 mg capsule Sig: Take 2 capsules by mouth DAILY (6 AM). Please review and advise. RAUL Davidson documented in this encounterGreen Cross Hospital01-12-2023 NoteHNO ID: [id number] Author: Hina Peterson MD Service: ? 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 Patient on mycophenolate mofetil , cellcept and prednisone Mixed hyperlipidemia due to type 2 diabetes mellitus ([facility]) 11/29/2021 Osteomyelitis ([facility]) 11/29/2021 Paroxysmal atrial fibrillation ([facility]) Renal transplant, status post SA node dysfunction ([facility]) s/p pacemaker Type 2 diabetes mellitus with diabetic neuropathy, with long-term current use of insulin ([facility]) 02/24/2002 PAST SURGICAL HISTORY Procedure Laterality Date [...] by mouth daily with lunch. Magic Cup [place] with lunch aspirin, enteric coated (ASPIRIN, ENTERIC COATED) 81 mg EC tablet Take 1 tablet by mouth once daily. predniSONE (DELTASONE) 5 mg tablet TAKE 1 TABLET BY MOUTH EVERY DAY oxyCODONE IR (ROXICODONE) 5 mg immediate release tablet 1-2 tablets by ORAL/FEEDING TUBE route every 3 hours as needed. Food Supplement, Lactose-Free (ENSURE MAX (more content not included)... [facility]01-12-2023 History of Present illness Narrative* Hina Peterson MD - 02/26/2022 4:25 PM EST Images from the original note were not included. [facility] [place] DEPARTMENT OF VASCULAR SURGERY OUTPATIENT VISIT DATE [...] maxwell [facility]. He comes here with a lateral wound eschar. He denies any fevers, chills, or any drainage. He is on anticoagulation. 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 Patient on mycophenolate mofetil ,cellcept and prednisone Mixed hyperlipidemia due to type 2 diabetes mellitus ([facility]) 11/29/2021 Osteomyelitis ([facility]) 11/29/2021 Paroxysmal atrial fibrillation ([facility]) Renal transplant, status post SA node dysfunction ([facility]) s/p pacemaker Type 2 diabetes mellitus with diabetic neuropathy, with long-term current use of insulin ([facility]) 02/24/2002 PAST SURGICAL HISTORY Procedure Laterality Date [...] by mouth daily with lunch. Magic Cup [place] with lunch aspirin, enteric coated (ASPIRIN, ENTERIC [...] 2022 TIME: 4:26 PM documented in this encounterGreen Cross Hospital01-05-2023 Miscellaneous Notes* Telephone Encounter - Gwen [...] Home and cell number(Ask for Alex's nurse) [phone] Diagnosis 4 mo f/u wound check Yumiko Mcclain documented in this encounterGreen Cross Hospital01-05-2023 Miscellaneous Notes* Telephone Encounter - Augusta Medrano RN - 02/19/2022 11:11 AM EST Alex Kate Ray's nursing facility, [facility], called regarding elevated tacrolimus level (23.9). Spoke with bedside nurse, mukul Enriquez. Level is from last week- unable to clearly determine if medications were held prior to lab work. Reviewed with nurse morning labs should occur prior to lab draws. Patient is scheduled for repeat labs tomorrow. Will assess new level. Augusta Medrano RN documented in this encounterGreen Cross Hospital01-04-2023 Miscellaneous Notes* Telephone Encounter - Martina [...] advise. Mercedez Tavares MA documented in this encounterGreen Cross Hospital12-27-2022 Progress note Author Sadia Aguilar [facility] February 10, 2022 3:47pm Note Date/Time February 10, 2022 3:47pm [facility] [address] [place] [address] Wound Center Provider Note Signed Patient: Alex Almonte MR#: [id number] : 1945 Acct:[id number] Age/Sex: 76 / M Copies to: DO Sadia Whyte APRN~ HPI Date of Visit Date of Visit: Date of Service: 02/10/2022 Time of Service: 15:44 Narrative HPI: 12/30/21 Alex is a 76 year old male presenting to [facility] wound care for aninitial visit for eval and treatment of a sacral/coccyx area pressure ulcer. He resides at [facility]. There is an BULB PLANTER present for the visit. Medicalhoney gel will [...] his brief that was cleaned by this board writer as well as another nursing staff member, few weeks to follow up Subjective Pain Coccyx: Pain Description: Intermittent Pain Intensity: 0 Wound/Ulcer History When did wound start?: 4 weeks ago- from initial visit here Mode of Arrival/ On Site Soil Evaluator: Facility vehicle Assistive Device Used Today: Wheelchair and Indra Lives with:: Care/Nursing Facility Appetite Description: Within Normal Limits Who helps w/ dressing change?: Nursing Facility Why Do You Need Help?: Can't Reach Ulcer, Limited mobility and Taxing effort to leave home Smoking Status: Former smoker [facility] Medical History (Updated 01/20/22 @ 14:21 [...] Ulcer Pressure Ulcer/Injury Staging: Unstageable Bed Appearance: [place] and Yellow Percent of Wound Bed Granulated/Red: 90 Percent of Devitalized: 10 Length (cm): 2.5 Width (cm): 2.3 Depth (cm): 2.1 CM Sq: 5.750 Surrounding Tissue Appearance: [place], Hyperpigmented and Satellite lesions Surrounding Tissue Temp: [...] <Electronically signed by DAVID Aguilar> 02/10/22 [address] [facility] Work Phone: [phone]) 372-322412-22-2022 NoteHNO ID: [id number] Author: Asia Pike MD Service: ? Author Type: Physician Type: Progress Notes Filed: 02/05/2022 9:38 AM Note Text: [facility] [place] Transplant Follow up Portions of this note [...] snacks patient declined. Indra scale at [facility]: 166.2 lbs per patient. Bed sore on coccyx causing discomfort. Being changed regularly at [facility]- reported to be smaller around but still as deep. Patient not very up to date with medications. Patient brought paperwork from [employer] with all medications being received. Patient unsure if they have been drawing labs regularly. Last Tac from 01/19: 12.9 and K 5.9. In need of current labs. Lab orders will be sent with patient and follows as below: [facility] Trans[facility] Standing Lab Orders [address] [place], [place] [address] February 05, 2022 Alex Almonte 1945 [id number] STANDARD TESTING: Diagnosis Codes: Z94.0 Kidney Transplant [...] AT YOUR LABORATORY FACILITY AND FAX TO [phone]. PLEASE CALL [phone]. Provider: Dr. Pike Current Outpatient Medications Medication [...] by mouth daily with lunch. Magic Cup [place] with lunch aspirin, enteric coated (ASPIRIN, ENTERIC COATED) 81 mg EC tablet Take 1 tablet by mouth once daily. atorvastatin (LIPITOR) 40 mg tablet 1 tablet by ORAL/FEEDING TUBE route daily at bedtime. (more content not included)...[facility]12-22-[facility] History of Present illness Narrative* Asia Pike MD - 02/05/2022 8:20 AM EST Images from the original note were not included. [facility] [place] Trans[facility] Follow up Portions of this note [...] date with medications. Patient brought paperwork from [employer] with all medications being received. Patient unsure if they have been drawing labs regularly. Last Tac from 01/19: 12.9 and K 5.9. In need of current labs. Lab orders will be sent with patient and follows as below: Kidney [facility] Pancreas Transplant Standing Lab Orders [address] [place], [place] [address] February 05, 2022 Alex Almonte 1945 [id number] STANDARD TESTING: Diagnosis Codes: Z94.0 Kidney Transplant [...] AT YOUR LABORATORY FACILITY AND FAX TO [phone]. PLEASE CALL [phone]. Provider: Dr. Pike Current Outpatient Medications Medication [...] by mouth daily with lunch. Magic Cup [place] with lunch aspirin, enteric coated (ASPIRIN, ENTERIC [...] All other system reviews negative. Augusta Medrano technology lead: February 05, 2022 9:34 AM I have [...] complexity. Asia Pike MD documented in this encounterGreen Cross Hospital12-06-2022 Progress note Author Sadia Aguilar [facility] January 20, 2022 2:21pm Note Date/Time January 20, 2022 2 :21pm [facility] [address] [place] [address] Wound Center Provider Note Signed Patient: Alex Almonte MR#: [id number] : 1945 Acct:[id number] Age/Sex: 76 / M Copies to: DO Sadia Whyte APRN~ HPI Date of Visit Date of Visit: Date of Service: 01/20/2022 Time of Service: 14:17 Narrative HPI: 12/30/21 Alex is a 76 year old male presenting to [facility] wound care for aninitial visit for eval and treatment of a sacral/coccyx area pressure ulcer. He resides at [facility]. There is an BULB PLANTER present for the visit. Medicalhoney gel will [...] from initial visit here Mode of Arrival/ On Site Soil Evaluator: Facility vehicle Assistive Device Used Today: Wheelchair and Indra Lives with:: Care/Nursing Facility Appetite Description: Within Normal Limits Who helps w/ dressing change?: Nursing Facility Why Do You Need Help?: Can't Reach Ulcer, Limited mobility and Taxing effort to leave home Smoking Status: Former smoker [facility] Medical History (Updated 01/20/22 @ 14:21 [...] Ulcer Pressure Ulcer/Injury Staging: Unstageable Bed Appearance: [place] and Yellow Percent of Wound Bed Granulated/Red: 40 Percent of Devitalized: 60 Length (cm): 5.2 Width (cm): 3.4 Depth (cm): 1.8 CM Sq: 17.680 Surrounding Tissue Appearance: [place] and Hyperpigmented Surrounding Tissue Temp: Warm Drainage [...] <Electronically signed by DAVID Aguilar> 01/20/22 1421 [facility] Work Phone: 1(900) 601-265212-06-2022 Miscellaneous Notes* Telephone Encounter - Van Olivarez [...] treated. Van Olivarez APRN.CNP documented in this encounterGreen Cross Hospital11-28-2022 Surgical operation note* Brief Op Note - Misbah Landis PA-C - 01/12/2022 10:41 AM EST BRIEF OPERATIVE / PROCEDURE NOTE LOG ID: [id number] SURGERY/PROCEDURE DATE: 01/12/2022 INCISION/PROCEDURE START TIME: 10:32 AM INCISION CLOSE/PROCEDURE END TIME: 10:35 AM SURGEON(S)/PROCEDURALIST(S) AND LAST SORTER(S): Misbah Landis PA-C SURGERY/PROCEDURE(S): Removal tunneled vascular access catheter under local anesthesia ANESTHESIA: Procedural Sedation FINDINGS: Catheter removed intact ESTIMATED BLOOD LOSS: 0 ml SPECIMENS: None COMPLICATIONS: None PRE-OP/PRE-PROCEDURE DIAGNOSIS: Foot Ulcer POST-OP/POST-PROCEDURE DIAGNOSIS: Same as Preop SIGNATURE: Misbah Landis PA-C PATIENT NAME: Alex Almonte DATE: January 12, 2022 TIME: 10:42 AM documented in this encounterGreen Cross Hospital11-22-2022 Nurse Note* Laxmi Archibald RN - 01/06/2022 1:55 PM EST Pre-procedure instructions: Contacted patient's sister, [employer] and nurse at [facility], Jada ([phone]) andconfirmed appt. for Gerhard removal scheduled on 01/12/22, at [facility]. If instructions are not followed your [...] Arrival at 9:30am to desk QB-1 (Formerly Named [facility]) and check in for your procedure. Administrative Nursing Supervisor/Transportation: How will you be arriving for your procedure? Ambulance service. To be arranged by [facility]. If you develop any of the following symptoms before your procedure, please call [phone]. Chills, joint pain, rash, sore throat, cough, loss of smell, reddened eyes, vomiting, abdominal pains, diarrhea, loss of taste, severe headache, weakness, bruising or bleeding, fever, muscle pain, shortness of breath Recovery expectations: You can expect to be in recovery for 30 minutes following the procedure. Written instructions provided to patient via [employer] If you have any questions please call [phone] documented in this encounterGreen Cross Hospital11-15-2022 Progress note Author Sadia Aguilar [facility] December 30, 2021 1:49pm Note Date/Time December 30, 2021 1:49pm [facility] [address] [place] [address] Wound Center Provider Note Signed Patient: Alex Almonte MR#: [id number] : 1945 Acct:[id number] Age/Sex: 76 / M Copies to: Devon Moreira,DO Sadia Aguilar APRN~ HPI Date of Visit Date of Visit: Date of Service: 12/30/2021 Time of Service: 13:44 Narrative HPI: 12/30/21 Alex is a 76 year old male presenting to [facility] wound care for aninitial visit for eval and treatment of a sacral/coccyx area pressure ulcer. He resides at [facility]. There is an BULB PLANTER present for the visit. Medicalhoney gel will [...] start?: 4 weeks ago Mode of Arrival/ On Site Soil Evaluator: Facility vehicle Assistive Device Used Today: Wheelchair and Indra Lives with:: Care/Nursing Facility Appetite Description: Within Normal Limits Who helps w/ dressing change?: Nursing Facility Why Do You Need Help?: Can't Reach Ulcer, Limited mobility and Taxing effort to leave home Smoking Status: Former smoker [facility] Medical History (Updated 12/30/21 @ 13:49 [...] 0.1 CM Sq: 38.500 Surrounding Tissue Appearance: [place] and Hyperpigmented Surrounding Tissue Temp: Warm Drainage [...] <Electronically signed by DAVID Aguilar> 12/30/21 [address] [facility] Work Phone: 1(681) 649-831111-15-2022 History of Present illness Narrative* Paresh Fonseca [...] rehab facility He is currently at [facility] in [facility] Seen on video together with Zoe -history obtained from bedside nursing. he is getting up in a chair, working with PT diet is back to regular hes doing well. 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 has scabs on the R lateral side but no wound care concerns. It continues to heal. He has a follow-up with vascular surgery later December 2021. has a sacral wound -- he has local wound care following this at [facility] WBC 6.0, creatinine -- 0.8. alt [...] by mouth daily with lunch. Magic Cup [place] with lunch aspirin, enteric coated (ASPIRIN, ENTERIC [...] is a 76 year old male from [facility]. 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 History of PAD CAD status post CABG, diabetes, atrial fibrillatioN [facility] for having altered mental status and [...] 3. Status post right heel I&D at [facility] on 11/24/2021. 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 4. CKD - s/p gerhard placement 5. immunocompromised Status post right open above the ankle [id number]/17 - Enterobacter and MRSA from cultures Gram-positive [...] will need to coordinate with his SNF [phone] --our ID office will need to arrange for IR gerhard removal. Return to ID as needed 10 Minutes spent via virtual visit. 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 Thanks, Sulma Pardo Financial Services Professional documented in this encounterGreen Cross Hospital10-31-2022 Miscellaneous Notes* Telephone Encounter - Gwen Alfredo Adm Asst I - 12/15/2021 4:11 PM EDT Rupa LYLES from [facility] [phone] called to report IV Vancomycin was started until today. Patient missed 3 days, should patient makeup missed doses? Please advise. Gwen Alfredo Adm Asst I documented in this encounterGreen Cross Hospital10-21-2022 Instructions* Patient Instructions* Paresh Fonseca MD [...] serious illness Are taking any medications (prescription, bvll-jot-qckktkg, vitamins, or herbal products) How will I receive EVUSHELD? EVUSHELD consists of two investigational medicines, tixagevimab and cilgavimab. You will receive 1 dose of EVUSHELD, consisting of 2 separate injections (tixagevimab and cilgavimab). EVUSHELD will be given to you by your healthcare provider as 2 intramuscular injections, given one after the other. Viruses can currency exchange specialist time (mutate) and develop into a slightly [...] caused by certain SARS-CoV-2 variants: Viruses can currency exchange specialist time (mutate) and develop into a slightly [...] treatment or prevention of COVID-19 go to https://www.fda.gov/wmtgmqsph-mvgkzysuudld-axs- response/jxu-rumll-qrrxipjvss-blj-lubmsx-bzwdbexds/onzjiuxgq-ern-ifdtbxyfvqppy for more information. It is your choice [...] not go away. Report side effects to [employer] at www.fda.gov/medwatch or call 1-207-SZK-8816 or call [employer] . Additional Information If you have questions, visit the website or call the telephone number provided below. Website Telephone number http://www.LabMinds How can I learn more about COVID-19? Ask your healthcare provider. Visit https://www.cdc.gov/COVID19 Contact your local or state public health department. What is an Emergency Use Authorization? The [place] FDA has made EVUSHELD (tixagevimab co-packaged with cilgavimab) available under an emergency access mechanism called an Emergency Use Authorization EUA. The EUA is supported by a [place] of Health and Human Service (HHS) declaration [...] monohydrate, polysorbate 80, sucrose, water. Distributed by: [employer] [place], [place] Manufactured for: [employer] [place], [place] [employer] 2021. All rightsreserved. documented in this encounterGreen Cross Hospital10-21-2022 Miscellaneous Notes* Telephone Encounter - Paresh Fonseca MD - 12/05/2021 3:05 PM EDT Evusheld (tixagevimab/cilgavimab) Eligibility and Patient Discussion The patient agrees to receive Evusheld (tixagevimab 300 mg and cilgavimab 300 mg) at [facility]. The patient verbalized understanding of repeating a COVID test 72 hours prior to the injections. called up patient in response to her [employer] message today she tested covid negative on a rapid test on Wednesday this week Discussed evushed fact sheet and she agrees to proceed she will retest again today to be scheduled for Friday 12/08 at [facility] Paresh Fonseca MD documented in this encounterGreen Cross Hospital10-03-2022 Instructions* Patient Instructions* No Reeder DO - 11/17/2021 4:26 PM EDT -- continue coumadin -- will get vascular ultrasound for vein and artery of your right leg -- will have you see my interventional cardiology partner regarding your peripheral artery disease and if your artery disease is impairing your wound healing for the leg ulcer documented in this encounterGreen Cross Hospital10-03-2022 History of Present illness Narrative* No Reeder DO - 11/17/2021 3:53 PM EDT Images from the original note were not included. [facility] [place] Department of Cardiovascular Medicine SECTION [...] DVT scan. Leg elevation. No Reeder DO, [facility] documented in this encounter[address]16-2022 History of Past illness Narrative* Problem Noted Date Resolved Date Altered tissue perfusion 022 documented as of this encounter (statuses as of 09/30/2021) [address]16-2022 History of Past illness Narrative* Problem Noted Date Resolved Date Altered tissue perfusion 022 documented as of this encounter (statuses as of 10/09/2021) [address]16-2022 History of Past illness Narrative* Problem Noted Date Resolved Date Altered tissue perfusion 022 documented as of this encounter (statuses as of 11/18/2021) [address]16-2022 History of Past illness Narrative* Problem Noted Date Resolved Date Altered tissue perfusion 09/30/2 022 documented as of this encounter (statuses as of 12/01/2021) [address]16-2022 History of Past illness Narrative* Problem Noted Date Resolved Date Altered tissue perfusion 09/30/2 022 documented as of this encounter (statuses as of 12/05/2021) [address]16-2022 History of Past illness Narrative* Problem Noted Date Resolved Date Altered tissue perfusion 09/30/2 022 documented as of this encounter (statuses as of 12/08/2021) [address]16-2022 History of Past illness Narrative* Problem Noted Date Resolved Date Altered tissue perfusion 09/30/2 022 documented as of this encounter (statuses as of 12/08/2021) [address]16-2022 History of Past illness Narrative* Problem Noted Date Resolved Date Altered tissue perfusion 16/2 022 documented as of this encounter (statuses as of 12/12/2021) [address]16-2022 History of Past illness Narrative* Problem Noted Date Resolved Date Altered tissue perfusion 16/2 022 documented as of this encounter (statuses as of 12/15/2021) [address]16-2022 History of Past illness Narrative* Problem Noted Date Resolved Date Altered tissue perfusion 16/2 022 documented as of this encounter (statuses as of 12/16/2021) [address]16-2022 History of Past illness Narrative* Problem Noted Date Resolved Date Altered tissue perfusion 16/2 022 documented as of this encounter (statuses as of 12/31/2021) [address]22 History of Past illness Narrative* Problem Noted Date Resolved Date Altered tissue perfusion 16/2 022 documented as of this encounter (statuses as of 01/13/2022) [address]16-2022 History of Past illness Narrative* Problem Noted Date Resolved Date Altered tissue perfusion 16/2 022 documented as of this encounter (statuses as of 01/20/2022) [address]16-2022 History of Past illness Narrative* Problem Noted Date Resolved Date Altered tissue perfusion 16/2 022 documented as of this encounter (statuses as of 02/06/2022) [address]16[address]2022 History of Past illness Narrative* Problem Noted Date Resolved Date Altered tissue perfusion 16/2 022 documented as of this encounter (statuses as of 02/20/2022) [address]16[address]2022 History of Past illness Narrative* Problem Noted Date Resolved Date Altered tissue perfusion 16/2 022 documented as of this encounter (statuses as of 02/26/2022) [address]16[address]2022 History of Past illness Narrative* Problem Noted Date Resolved Date Altered tissue perfusion 16/2 022 documented as of this encounter (statuses as of 02/27/2022) [address]16[address]2022 History of Past illness Narrative* Problem Noted Date Resolved Date Altered tissue perfusion 16/2 022 documented as of this encounter (statuses as of 03/21/2022) [address]22 History of Past illness Narrative* Problem Noted Date Resolved Date Altered tissue perfusion 16/2 022 documented as of this encounter (statuses as of 03/30/2022) [address] History of Past illness Narrative* Problem Noted Date Resolved Date Altered tissue perfusion 16/2 022 documented as of this encounter (statuses as of 04/06/2022) [facility] of Past illness Narrative* Problem Noted Date Resolved Date Altered tissue perfusion 022 documented as of this encounter (statuses as of 05/13/2022) [facility] History of Past illness Narrative* Problem Noted Date Diagnosed Date Resolved Date Altered tissue perfusion documented as of this encounter (statuses as of 2022) [facility] History of Past illness Narrative* Problem Noted Date Diagnosed Date Resolved Date Altered tissue perfusion documented as of this encounter (statuses as of 10/29/2022) [facility] Miscellaneous Notes* Telephone Encounter - Katina [...] to pharmacy. Katina Duque documented in this encounterGreen Cross Hospital05-31-2022 Miscellaneous Notes* Telephone Encounter - Van [...] advise. Rosibel Link Adm documented in this encounterGreen Cross Hospital04-21-2022 Miscellaneous Notes* Telephone Encounter - Van Olivarez APRN.CNP - 06/05/2021 4:46 PM EDT Spoke with pt regarding latest results, scr. at baseline. TAC level 8.6 prev two levels in 5 range.He believes latest level would be 12hr trough. No changes for now, if next level >7, can consider if reduction appropriate. He understands. Van Olivarez APRN.CNP [facility]Community [facility]* Diagnosis Screening for genitourinary condition Screening for other and unspecified genitourinary condition documented in this encounter [facility]* Diagnosis Acute deep vein thrombosis (DVT) of proximal end of right lower extremity (HCC)- Primary PAD (peripheral artery disease) ([facility]) Peripheral vascular disease, unspecified Nonhealing ulcer of heel ([facility]) Anticoagulation management encounter Encounter for therapeutic drug monitoring documented in this encounter [facility]* Diagnosis Encounter for prophylactic measures, unspecified- Primary documented in this encounter [facility] note* Diagnosis Kidney replaced by transplant- Primary documented in this encounter [facility]* Diagnosis MRSA bacteremia- Primary Bacteremia Diabetic foot ulcer with osteomyelitis ([facility]) Type II or unspecified type diabetes mellitus with other specified manifestations, not stated as uncontrolled ILIANA (acute kidney injury) ([facility]) Acute kidney failure, unspecified documented in this encounter [facility]* Diagnosis Kidney replaced by transplant- Primary 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 documented in this encounter [facility] note* Diagnosis Hx of BKA, right (HCC)- Primary PAD (peripheral artery disease) ([facility]) Peripheral vascular disease, unspecified Mixed hyperlipidemia due [...] (HCC) Atrial fibrillation documented in this encounter [facility] note* Diagnosis Screening for genitourinary condition Screening for other and unspecified genitourinary condition documented in this encounter [facility]* Diagnosis Onset Date Resolution Status At high risk for skin breakdown chronic Diabetes chronic Fecal incontinence chronic Limited mobility chronic Poor appetite chronic Pressure ulcer of sacral region, unstageable chronic Candidiasis resolved [facility] Work Phone: Evaluation noteNo InformationNoThe Gluten [employer] Other Evaluation note* Diagnosis Kidney replaced by transplant- Primary documented in this encounter [facility]* Diagnosis Type 1 diabetes [...] COLONOSCOPY 1995,2001, 2014 Hospitalization History see above [facility] Other Progress note Author Sadia Aguilar [facility] July 20, 2022 1:48pm Note Date/Time July 20, 2022 1:48p m [facility] [address] [place] [address] Wound Center Provider Note Signed Patient: Alex Almonte MR#: [id number] : 1945 Acct:[id number] Age/Sex: 76 / M Copies to: DO Sadia Whyte, BORDER MEASURER~ HPI Date of Visit Date of Visit: Date of Service: 07/20/2022 Time of Service: 13:46 Narrative HPI: 12/30/21 Alex is a 76 year old male presenting to [facility] wound care for aninitial visit for eval and treatment of a sacral/coccyx area pressure ulcer. He resides at [facility]. There is an BULB PLANTER present for the visit. Medicalhoney gel will [...] his brief that was cleaned by this board writer as well as another nursing staff [...] from initial visit here Mode of Arrival/ On Site Soil Evaluator: Facility vehicle Assistive Device Used Today: Wheelchair and Indra Lives with:: Care/Nursing Facility Appetite Description: Within Normal Limits Who helps w/ dressing change?: Nursing Facility Why Do You Need Help?: Can't Reach Ulcer, Limited mobility and Taxing effort to leave home Smoking Status: Former smoker [facility] Medical History (Updated 03/03/22 @ 14:41 [...] <Electronically signed by DAVID Aguilar> 07/20/22 [address] [facility] Work Phone: Reason for referral (narrative)* Outpatient Procedure (Routine) - Authorized Specialty Diagnoses / Procedures Referred By Felicia t Referred To [facility] [place] Diagnoses PAD (peripheral artery disease) (HCC) Nonhealing ulcer of heel (HCC) Procedures US LEG ARTERIAL PERIPH UNL VAS LAB DUP-SCAN LXTR ART/ARTL BPGS UNI/[place] [address] [place] [id number] [address] Referral ID Status Reason Start Date Expiration Date Visits Requested Visits Authorized [id number] Authorized Auto-Generat ed Referral 11/17/2021 11/17/2022 1 1 * Outpatient Procedure (Routine) - Authorized Specialty Diagnoses / Procedures Referred By Kaleighac t Referred To [facility] Diagnoses Acute deep vein thrombosis (DVT) of proximal end of right lower extremity (HCC) Procedures US LEG VEIN DVT UNL VAS LAB DUP-SCAN XTR VEINS UNILATERAL/[place] [address] [place] [id number] [address] Referral ID Status Reason Start Date Expiration Date Visits Requested Visits Authorized [id number] Authorized Auto-Generat ed Referral 11/17/2021 11/17/2022 1 1 * Consult, Test, Treat (Routine) - Authorized Specialty Diagnoses / Procedures Referred By Felicia carreno Referred To Contact Cardiology Diagnoses PAD (peripheral artery disease) (HCC) Nonhealing ulcer of heel (HCC) Procedures CONSULT TO CARDIOLOGY OFFICE/OUTPATIENT [facility] MDM 60-74 MINUTES Savanah Marcelo MD [address] [place] [address] Referral ID Status Reason Start Date Expiration Date Visits Requested Visits Authorized [id number] Authorized PCP Requested Referral 11/17/2021 11/17/2022 1 1 [facility] Summary Purpose Family History No Family History Records Found Relationship Condition Age at Onset Recorded Date/T kartik father Aneurysm Unknown father Parkinson's disease Unknown Advance Directives No Advanced Directives Records FoundDocuments on File Type Date Recorded 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 Advance Directive(s) Latest Code Status [...] Maker Relationship: M ajority of Adult Siblings (shipping services sales representative) DNR-CCA 09/26/2021 11:56 AM 10/01/2021 [...] Decision Maker Relationship: Majority of Adult Siblings (shipping services sales representative) Code Status History Code Status [...] and content) DATE CREATED AUTHOR 02/20/2021 [facility] [employer] DATE CREATED AUTHOR AUTHOR'S ORGANIZ ATION 07/25/2022 [facility] DATE CREATED AUTHOR AUTHOR'S ORGANIZ ATION 08/16/2022 [facility] DATE CREATED AUTHOR AUTHOR'S ORGANIZ ATION 01/14/2023 [facility] DATE CREATED AUTHOR AUTHOR'S ORGANIZ ATION 05/25/2023 [facility] DATE CREATED AUTHOR AUTHOR'S ORGANIZ ATION 06/19/2023 [facility] EPIC Source Comments (unrecognize d section and content) In the event this informatio n is protected by the Federal Confidentiality of Alcohol and Drug Abuse Patient Records regulations: The Federal rules restrict any use of the information to criminally investigate or prosecute any alcohol or drug abuse patient.[facility] Cross HospitalIn the event this information is protected by the Federal Confidentiality of Alcohol and Drug Abuse Patient Records regulations: The Federal rules restrict any use of the information to criminally investigate or prosecute any alcohol or drug abuse patient.[facility] HospitalIn the event this information is protected by the Federal Confidentiality of Alcohol and Drug Abuse Patient Records regulations: The Federal rules restrict any use of the information to criminally investigate or prosecute any alcohol or drug abuse patient.[facility] HospitalIn the event this information is protected by the Federal Confidentiality of Alcohol and Drug Abuse Patient Records regulations: The Federal rules restrict any use of the information to criminally investigate or prosecute any alcohol or drug abuse patient.[facility] Cross HospitalIn the event this information is protected by the Federal Confidentiality of Alcohol and Drug Abuse Patient Records regulations: The Federal rules restrict any use of the information to criminally investigate or prosecute any alcohol or drug abuse patient.[facility] HospitalIn the event this information is protected by the Federal Confidentiality of Alcohol and Drug Abuse Patient Records regulations: The Federal rules restrict any use of the information to criminally investigate or prosecute any alcohol or drug abuse patient.[facility] HospitalIn the event this information is protected by the Federal Confidentiality of Alcohol and Drug Abuse Patient Records regulations: The Federal rules restrict any use of the information to criminally investigate or prosecute any alcohol or drug abuse patient.[facility] Cross HospitalIn the event this information is protected by the Federal Confidentiality of Alcohol and Drug Abuse Patient Records regulations: The Federal rules restrict any use of the information to criminally investigate or prosecute any alcohol or drug abuse patient.[facility] HospitalIn the event this information is protected by the Federal Confidentiality of Alcohol and Drug Abuse Patient Records regulations: The Federal rules restrict any use of the information to criminally investigate or prosecute any alcohol or drug abuse patient.[facility] HospitalIn the event this information is protected by the Federal Confidentiality of Alcohol and Drug Abuse Patient Records regulations: The Federal rules restrict any use of the information to criminally investigate or prosecute any alcohol or drug abuse patient.[facility] HospitalIn the event this information is protected by the Federal Confidentiality of Alcohol and Drug Abuse Patient Records regulations: The Federal rules restrict any use of the information to criminally investigate or prosecute any alcohol or drug abuse patient.[facility] HospitalIn the event this information is protected by the Federal Confidentiality of Alcohol and Drug Abuse Patient Records regulations: The Federal rules restrict any use of the information to criminally investigate or prosecute any alcohol or drug abuse patient.[facility] Cross HospitalIn the event this information is protected by the Federal Confidentiality of Alcohol and Drug Abuse Patient Records regulations: The Federal rules restrict any use of the information to criminally investigate or prosecute any alcohol or drug abuse patient.Green Cross HospitalIn the event this information is protected by the Federal Confidentiality of Alcohol and Drug Abuse Patient Records regulations: The Federal rules restrict any use of the information to criminally investigate or prosecute any alcohol or drug abuse patient.[facility] HospitalIn the event this information is protected by the Federal Confidentiality of Alcohol and Drug Abuse Patient Records regulations: The Federal rules restrict any use of the information to criminally investigate or prosecute any alcohol or drug abuse patient.[facility] HospitalIn the event this information is protected by the Federal Confidentiality of Alcohol and Drug Abuse Patient Records regulations: The Federal rules restrict any use of the information to criminally investigate or prosecute any alcohol or drug abuse patient.[facility]In the event this information is protected by the Federal Confidentiality of Alcohol and Drug Abuse Patient Records regulations: The Federal rules restrict any use of the information to criminally investigate or prosecute any alcohol or drug abuse patient.[facility] HospitalIn the event this information is protected by the Federal Confidentiality of Alcohol and Drug Abuse Patient Records regulations: The Federal rules restrict any use of the information to criminally investigate or prosecute any alcohol or drug abuse patient.[facility] HospitalIn the event this information is protected by the Federal Confidentiality of Alcohol and Drug Abuse Patient Records regulations: The Federal rules restrict any use of the information to criminally investigate or prosecute any alcohol or drug abuse patient.[facility] HospitalIn the event this information is protected by the Federal Confidentiality of Alcohol and Drug Abuse Patient Records regulations: The Federal rules restrict any use of the information to criminally investigate or prosecute any alcohol or drug abuse patient.[facility] HospitalIn the event this information is protected by the Federal Confidentiality of Alcohol and Drug Abuse Patient Records regulations: The Federal rules restrict any use of the information to criminally investigate or prosecute any alcohol or drug abuse patient.[facility] HospitalIn the event this information is protected by the Federal Confidentiality of Alcohol and Drug Abuse Patient Records regulations: The Federal rules restrict any use of the information to criminally investigate or prosecute any alcohol or drug abuse patient.[facility] HospitalIn the event this information is protected by the Federal Confidentiality of Alcohol and Drug Abuse Patient Records regulations: The Federal rules restrict any use of the information to criminally investigate or prosecute any alcohol or drug abuse patient.[facility] HospitalIn the event this information is protected by the Federal Confidentiality of Alcohol and Drug Abuse Patient Records regulations: The Federal rules restrict any use of the information to criminally investigate or prosecute any alcohol or drug abuse patient.[facility] HospitalIn the event this information is protected by the Federal Confidentiality of Alcohol and Drug Abuse Patient Records regulations: The Federal rules restrict any use of the information to criminally investigate or prosecute any alcohol or drug abuse patient.[facility] HospitalIn the event this information is protected [...] Care Teams (unrecognized sec tion and content) Paper Production Engineer Relationship Specialty Start Date End Date Devon Moreira, DO [address] [facility] [address] PCP - General 05/27/00 Paper Production Engineer Relationship Specialty Start Date End Date Devon Moreira, DO [address] [facility] [address] PCP - General 05/27/00 Paper Production Engineer Relationship Specialty Start Date End Date Devon Moreira, DO [address] [facility] [address] PCP - General 05/27/00 Paper Production Engineer Relationship Specialty Start Date End Date Devon Moreira, DO [address] [facility] [address] PCP - General 05/27/00 Paper Production Engineer Relationship Specialty Start Date End Date Devon Moreira, DO [address] [facility] [address] PCP - General 05/27/00 Paper Production Engineer Relationship Specialty Start Date End Date Devon Moreira, DO [address] [facility] [address] PCP - General 05/27/00 Paper Production Engineer Relationship Specialty Start Date End Date Devon Moreira, DO [address] [facility] [address] PCP - General 05/27/00 Paper Production Engineer Relationship Specialty Start Date End Date Devon Moreira, DO [address] [place] [address] PCP - General 05/27/00 Paper Production Engineer Relationship Specialty Start Date End Date Devon Moreira, DO [address] [place] [address] PCP - General 05/27/00 Paper Production Engineer Relationship Specialty Start Date End Date Devon Moreira, DO [address] [place] [address] PCP - General 05/27/00 Paper Production Engineer Relationship Specialty Start Date End Date Devon Moreira, DO [address] [place] [address] PCP - General 05/27/00 Paper Production Engineer Relationship Specialty Start Date End Date Devon Moreira, DO [address] [place] [address] PCP - General 05/27/00 Paper Production Engineer Relationship Specialty Start Date End Date Devon Moreira, DO [address] [place] [address] PCP - General 05/27/00 Paper Production Engineer Relationship Specialty Start Date End Date Devon Moreira, DO [address] [place] [address] PCP - General 05/27/00 Paper Production Engineer Relationship Specialty Start Date End Date Devon Moreira, DO [address] [place] [address] PCP - General 05/27/00 Paper Production Engineer Relationship Specialty Start Date End Date Devon Moreira, DO [address] [place] [address] PCP - General 05/27/00 Paper Production Engineer Relationship Specialty Start Date End Date Devon Moreira, DO [address] [place] [address] PCP - General 05/27/00 Paper Production Engineer Relationship Specialty Start Date End Date Devon Moreira, DO [address] [place] [address] PCP - General 05/27/00 Paper Production Engineer Relationship Specialty Start Date End Date Devon Moreira, DO [address] [place] [address] PCP - General 05/27/00 Team Status: Active Member Role Status Dates Devon Moreira DO Primary Care Provider Active Team Status: Inactive Member Role Status Dates Devon Moreira DO Primary Care Provider Active Sadia Aguilar APRN Attending Provider Active Paper Production Engineer Relationship Specialty Start Date End Date Devon Moreira [address] [place] [address] PCP - General 05/27/00 Paper Production Engineer Relationship Specialty Start Date End Date Devon Moreira [address] [place] [address] PCP - General 05/27/00 Paper Production Engineer Relationship Specialty Start Date End Date Ni Cabrera DO [address] [facility] [address] [place] [address] PCP - ACO Reach 07/09/22 Devon Moreira MD [address] [place] [id number] PCP - General Internal Medicine 07/14/22 PRN Active and Recently Administ ered Medications (unrecognized section and content) Medication Order 01/10/2022 01/11/2022 01/12/2022 lidocaine (PF) 10 mg/mL (1 %) injection (XYLOCAINE) SUBCUTANEOUS, X (OR/PROCEDURE) PRN, Starting on 01/12/22 at 1032, Until Wed01/13/22 at 0303, Intraprocedure 1032 (Given - Provid er: Vani Hdz APRN.[employer]PARED [employer] PRODUCTION TEAM MEMBER) Goals (unrecognized section and content) Goals may [...] BE BASED ON THE PRIMARY CLINICAL RECORDS. [employer] provides no warranty or guarantee of the accuracy or completeness of information in this document.
[2023-07-28 08:02] LABS: Basophils Absolute Auto 0.1 10^3/uL (0.0-0.1); Basophils Percent Auto 0.7 % (0.2-2.0); Eosinophils Absolute Auto 0.3 10^3/uL (0.0-0.7); Eosinophils Percent Auto 3.5 % (0.9-7.0); Hematocrit 27.2 % (42.0-54.0); Hemoglobin 8.5 g/dL (14.0-18.0); Immature Granulocytes Abs Auto 0.01 10^3/uL (0.00-0.03); Immature Granulocytes Pct Auto 0.1 % (0.0-0.5); Lymphocytes Absolute Auto 2.6 10^3/uL (1.2-3.8); Lymphocytes Percent Auto 37.1 % (20.5-60.0); Mean Corpuscular HGB Conc 31.3 g/dL (29.9-35.2); Mean Corpuscular Hemoglobin 24.6 pg (25.9-34.0); Mean Corpuscular Volume 78.6 fL (80.0-94.0); Mean Platelet Volume 10.7 fL (9.5-13.5); Monocytes Absolute Auto 0.8 10^3/uL (0.3-0.8); Monocytes Percent Auto 10.8 % (1.7-12.0); Neutrophils Absolute Auto 3.4 10^3/uL (1.4-6.5); Neutrophils Percent Auto 47.8 % (43.0-75.0); Platelet Count 244 10^3/uL (150-450); Red Blood Count 3.46 10^6/uL (4.70-6.10); Red Cell Distribution Width 16.5 % (11.0-15.0); White Blood Count 7.1 10^3/uL (4.0-11.0)
[2023-07-28 09:36] LABS: INR 2.93; Prothrombin Time 27.9 sec (9.0-11.6)
[2023-07-28 09:52] LABS: Alanine Aminotransferase 13 U/L (16-63); Albumin Globulin Ratio 0.8; Albumin Level 2.7 g/dL (3.4-5.0); Alkaline Phosphatase 78 U/L (46-116); Anion Gap 11.5; Aspartate Amino Transferase 16 U/L (15-37); BUN Creatinine Ratio 32.4; Bilirubin Total 0.6 mg/dL (0.2-1.0); Calcium 8.2 mg/dL (8.5-10.1); Carbon Dioxide 28.3 mmol/L (21.0-32.0); Chloride 104 mmol/L (98-107); Estimated GFR (African America 56 (>=60); Estimated GFR (Non-African Ame 46 (>=60); Globulin 3.2 g/dL; Glucose 130 mg/dL (74-106); Potassium 3.8 mmol/L (3.5-5.1); Sodium 140 mmol/L (136-145); Total Protein 5.9 g/dL (6.4-8.2)
== END 2023-07-28 03:17 | disposition home or self-care (01) ==
LOC: LAB 03:16
PROVIDERS: PCP Internal Medicine; Visit Provider Internal Medicine
DX: N18.9 Chronic kidney disease, unspecified (principal)
CPT/HCPCS: 36415; 80053; 80197; 85025; 85610

== ENCOUNTER 2023-08-04 02:28 | Outpatient (REF) | payer MEDICARE, OTHER, SELFPAY ==
--- OUTSIDE RECORDS SUMMARY | 2023-08-04 02:33 | XMS_ITS ---
Patient Summarization (C-CDA 2.1 CCD) Created on: August 04, 2023 ALEX ALMONTE : 1945 Sex: Male Author Organization Sample organization Care Team Providers Care Disk Sharpener Name Role Phone PROVIDER, UNKNOWN Attending Unavailable PROVIDER, UNKNOWN Admitting Unavailable Lillie DO, Devon García Primary Care Provider Ball DO, Devon E Primary Care Provider Ball DO, Devon E Primary Care Provider Ball DO, Devon E Primary Care Provider Lillie, Devon Unavailable NABEEL, [...] Unavailable KANCHAN ., MARY ANN Consulting Unavailable BACHRAKARTHIK CRABTREE Consulting Unavailable PHOENIX, ASHLEY Cortes Admitting Unavailable HIGHLSRINATH, ASHLEY Cortes Attending Unavailable MARIAELENA, DR RICH Hernandez Consulting Unavailable LILLIE, DR OSORIO Primary Care Unavailable ASHLEY GARIBAY Consulting Unavailable LILLIE, DR OSORIO Primary Care Unavailable ZEV, BRANDI Attending Unavailable BROTHERS, BRANDI Admitting Unavailable BROTHERS, BRANID Consulting Unavailable BALL, DR OSORIO Consulting Unavailable [...] BALL, DR OSORIO Attending Unavailable BALL, DR OOSRIO Consulting Unavailable BALL, DR OSORIO Admitting Unavailable [...] OSORIO Primary Care Unavailable KATKOWILLIAM Attending Unavailable KATFE, WILLIAM Cortes Admitting Unavailable [...] Unavailable KANCHAN ., MARY ANN Consulting Unavailable CYN SAMUEL Consulting Unavailable [...] Aguilar Attending Unavailable Sadia Aguilar Admitting Unavailable Lillie, Devon Primary Care Unavailable DEVON MOREIRA Referring Unavailable HINA PETERSON Attending Unavailable DEVON MOREIRA Primary Care Unavailable ARTRU CHEN Referring Unavailable DEVON MOREIRA Primary Care Unavailable PetznNi mallory DO Unavailable [phone] Devon Moreira MD Primary Care Provider CAITY IBRAHIM Attending Unavailable MILAGRO QUEEN Referring Unavailable SARTHAK PARNELL Attending Unavailable NI CABRERA Attending Unavailable DEVON MOREIRA Referring Unavailable NI CABRERA Attending Unavailable DEVON MOREIRA Referring Unavailable Allergies Allergy Classification Reported Allergen(s) Allergy Type Date of Onset Reaction(s) Facility (20 sources) Pyridostigmine; Translations: [PYRIDOSTIGMINE BROMIDE] Drug Allergy 2 GI Upset [facility] Work Phone: (1 source) Pyridostigmine Drug Allergy 2 Nausea Only [facility] Encounters Encounter Date Encounter Type Care Provider Facility Start: 06-17-2023 End: 06-17-2023 ambulatory NI CABRERA Not Available Start: 05-19-2023 End: 05-19-2023 ambulatory [facility] Start: 04-11-2023 End: 04-11-2023 ambulatory Devon Moreira Other [facility] Other Start: 04-11-2023 Telephone encounter Dveon Moreira [facility] Start: 03-18-2023 End: 03-18-2023 ambulatory NI CABRERA Not Available Start: 03-18-2023 End: 03-18-2023 Office outpatient visit 25 minutes Ni Cabrera DO Work Phone: [facility] [address] Comment on above: 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 (CMS/HCC) (Primary Dx); 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); 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); Type 1 diabetes mellitus with hypoglycemia and without coma (CMS/HCC); 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 ([facility]/HCC) Start: 02-17-2023 End: 02-17-2023 ambulatory Devon Moreira Other [facility] Other Start: 02-17-2023 Telephone encounter [facility] Start: 01-14-2023 End: 01-14-2023 ambulatory Devon Moreira Other [facility] Other Start: 01-14-2023 Sbsq nursing facil c are/day minor complj 15 min [facility] Start: 12-10-2022 End: 12-10-2022 ambulatory Devon Moreira Other [facility] Other Start: 12-10-2022 Sbsq nursing facil c are/day minor complj 15 min [facility] Start: 11-12-2022 End: 11-12-2022 ambulatory Devon Moreira Other [facility] Other Start: 11-12-2022 Sbsq nursing facil c are/day minor complj 15 min [facility] Start: 10-16-2022 Refill Asia Pike MD Work Phone: [facility] Comment on above: Med Change Request Start: 10-12-2022 End: 10-12-2022 ambulatory Devon Moreira Other [facility] Other Start: 10-12-2022 Telephone encounter [facility] Start: 10-08-2022 End: 10-08-2022 ambulatory Devon Moreira Other [facility] Other Start: 10-08-2022 Sbsq nursing facil c are/day new problem 25 min [facility] Start: 09-22-2022 [facility] Comment on above: Rx Refills Start: 09-10-2022 End: 09-10-2022 ambulatory Devon Moreira Other [facility] Other Start: 09-10-2022 Sbsq nursing facil c are/day new problem 25 min [facility] Start: 09-09-2022 End: 09-09-2022 ambulatory [facility] Start: 08-06-2022 End: 08-06-2022 ambulatory Devon Moreira Other [facility] Other Start: 08-06-2022 Sbsq nursing facil c are/day new problem 25 min [facility] Start: 07-22-2022 End: 07-22-2022 ambulatory Devon Moreira Other [facility] Other Start: 07-22-2022 Telephone encounter Devon [facility] Start: 07-20-2022 End: 07-20-2022 ambulatory Sadia Aguilar Facility:[facility] Start: 07-20-2022 End: 07-20-2022 ambulatory DO Devon Moreira Work Phone: [facility] Work Phone: Start: 07-20-2022 End: 07-20-2022 Discharged Recurring DO Devon Moreira Work Phone: [facility] [place] Work Phone: Start: 07-13-2022 End: 07-13-[address] DEVON MOREIRA Facility:[facility]1 Start: 07-10-2022 End: 07-10-[address] DEVON MOREIRA Facility:[facility] Start: 07-03-2022 End: 07-03-[address] DEVON MOREIRA Facility:[facility]1 Start: 06-26-2022 End: 06-26-[address] DEVON MOREIRA Facility:[facility] Start: 06-26-2022 End: 06-26-[address] DEVON MOREIRA Facility:[facility]1 Start: 06-25-2022 End: 06-25-2022 ambulatory Devon Moreira Other [facility] Other Start: 06-25-2022 Sbsq nursing facil c are/day minor complj 15 min Devon [facility]ira [facility] Start: 06-19-2022 End: 06-19-[address] DEVON MOREIRA Facility:[facility]1 Start: 06-15-2022 End: 07-15-2022 ambulatory SHAIKH Kate MURRAY Facility:[facility]1 Start: 06-12-2022 End: 06-12-[address] DOCTOR WALSH Facility:[facility]1 Start: 06-05-2022 Sbsq nursing facil c are/day new problem 25 min [facility] Start: 06-05-2022 End: 06-05-[address] DEVON MOREIRA [facility] [employer] Other Start: 05-29-2022 End: 05-29-[address] DEVON MOREIRA Facility:[facility]1 Start: 05-22-2022 End: 05-22-[address] DEVON MOREIRA Facility:[facility] Start: 05-20-2022 End: 05-20-[address] DEVON MOREIRA Facility:[facility]1 Start: 05-18-2022 End: 06-12-2022 ambulatory SHAIKH Kate MURRAY Facility:[facility] Start: 05-15-2022 End: 05-15-[address] DEVON MOREIRA Facility:[facility]1 Start: 05-13-2022 End: 05-13-2022 ambulatory Van Olivarez APRN.NETWORK COORDINATOR Work Phone: [facility] Comment on above: results Start: 05-13-2022 E-mail encounter fro m caregiver Van Olivarez BOATSWAINS MATE.NETWORK COORDINATOR Work Phone: [facility] Start: 05-08-2022 End: 05-08-[address] DEVON MOREIRA Facility:[facility]1 Start: 05-07-2022 End: 05-07-2022 ambulatory Devon Moreira Other [facility] Other Start: 05-07-2022 Sbsq nursing facil c are/day new problem 25 min Devon Moreira [facility] Start: 05-06-2022 End: 05-06-2022 ambulatory [...] MOREIRA Facility:H1 Start: 04-02-2022 ambulatory Van cortes BOATSWAINS MATE.NETWORK COORDINATOR Work Phone: [facility] Start: 04-01-2022 End: 04-01-[address] DEVON MOREIRA Facility:[facility]1 Start: 03-22-2022 Anne Pike MD Work Phone: [facility] Comment on above: Med Change Request Start: 03-21-2022 ambulatory SHAIKH Kate MURRAY Facilit y:H1 Start: 03-11-2022 End: 03-11-[address] DEVON MOREIRA Facility:[facility]1 Start: 02-27-2022 Refill Samira S[facility] Comment on above: Rx Refills Start: 02-26-2022 End: 02-26-2022 ambulatory DEVON MOREIRA Facility:[facility] Start: 02-26-2022 End: 02-26-2022 Patient [...] Telephone encounter Devon Moreira DO Work Phone: [facility] Comment on above: Appointment Refill Request Start: 02-05-2022 End: 02-06-[address] DEVON MOREIRA Facility:[facility]1 Start: 02-05-2022 End: 02-06-2022 ambulatory [facility] Start: 02-05-2022 End: 02-05-2022 Patient encounter procedure [facility] Work Phone: [facility] Comment on above: Kidney replaced by t ransplant (Primary Dx); 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; long-term current use of immunosuppressive drug Start: 01-26-2022 End: 01-26-[address] DEVON MOREIRA Facility:[facility]1 Start: 01-20-2022 Telephone encounter Van Light Sher BOATSWAINS MATE.NETWORK COORDINATOR Work Phone: [facility] Comment on above: Results Start: 01-19-2022 End: 01-19-[address] DEVON MOREIRA Facility:[facility]1 Start: 01-16-2022 ambulatory SHAIKH Kate MURRAY Facilit y:H1 Start: 01-12-2022 End: 01-12-2022 Subsequent hospital visit by physician Alissa Chavira BOATSWAINS MATE.NETWORK COORDINATOR Work Phone: [facility]io Comment on above: ILIANA (acute kidney in jury) ([facility]) [N17.9] Start: 12-30-2021 End: 12-30-2021 ambulatory Paresh Fonseca MD Work Phone: Infectious Disease Comment on above: MRSA bacteremia (Arabella munira Dx); Diabetic foot ulcer with osteomyelitis (HCC) Start: 12-30-2021 End: 12-30-2021 Telemedicine consultation with patient Paresh Fonseca MD Work Phone: [facility] Start: 12-29-2021 End: 12-29-2021 ambulatory [...] [facility] Start: 12-08-2021 Orders Only Artur soto BOATSWAINS MATE.NETWORK COORDINATOR Work Phone: [facility] Comment on above: Kidney replaced by t ransplant (Primary Dx) Start: 12-07-2021 ambulatory Paresh Fonseca MD Work Phone: [facility] Comment on above: CoPat Start (copat s top 12/27/21) Start: 12-05-2021 Telephone encounter Paresh Fonseca MD Work Phone: Infectious Disease Comment on above: Patient Update (evus held discussion/) Start: 12-01-2021 Follow-up encounter [facility] Provider [facility] Start: 12-01-2021 Patient encounter procedure [facility] Prov ider [facility] Start: 11-23-2021 End: 11-28-2021 Evaluation [...] management encounter Start: 11-14-2021 End: 11-15-2021 ambulatory [facility] Sebastian [facility] Facility:H1 Start: 10-24-2021 End: 11-15-2021 ambulatory SHAIKH Kate MURRAY Facility:H1 Start: 10-22-2021 End: 10-23-2021 ambulatory [facility] Facility:H1 Start: 10-06-2021 ambulatory Van cortes APRN.NETWORK COORDINATOR Work Phone: [facility] Start: 09-30-2021 Refill Asia Pike MD Work Phone: [facility] [place] Comment on above: Refill Request Start: 09-19-2021 End: 09-24-2021 Evaluation and management of inpatient DR PROSPER LEES Facility:H1 Start: 09-18-2021 End: 09-19-[address] DEVON MOREIRA Facility:[facility]1 Start: 07-11-2021 Refill Asia Pike MD Work Phone: [facility] Comment on above: Refill Request Start: 06-05-2021 Telephone encounter Van Olivarez APRN.NETWORK COORDINATOR Work Phone: [facility] Comment on above: Results Start: 02-05-2021 End: 02-13-2021 ambulatory UNKNOWN PROVIDER Facility:[facility] Medical Equipment Procedure Code Equipment Code Equipment Original Text Equipment Identifier Dates Tray Powerline S urecuff 5fr Polyurethane Catheter 1 Lumen Microintroducer - [id number] Start: 12-06-2021 Immunizations Immunization Date Immunization Notes Care Provider [facility] 12-11-2021 COVID-19 booster vaccine, age 12+ yr, bivalent (PFIZER-BIONTECH) Paresh Fonseca MD Work Phone: [facility] 12-11-2021 influenza, high-dose , quadrivalent vaccine (FLUZONE HIGH DOSE QUADRIVALENT) Paresh Fonseca MD Work Phone: [facility] 12-11-2021 influenza virus vaccine, unspecified formulation [facility] 10-24-2021 influenza, high dose seasonal, preservative-free Ni Petznick DO Work Phone: [facility] 01-19-2019 influenza, high dose seasonal, preservative-free Ni Petznick DO Work Phone: [facility] 11-25-2017 Seasonal trivalent influenza vaccine, adjuvanted, preservative free Ni Petznick DO Work Phone: [facility] 11-05-2016 influenza, high dose seasonal, preservative-free Ni Petznick DO Work Phone: [facility] 07-30-2014 pneumococcal polysaccharide vaccine, 23 valent Ni Petznick DO Work Phone: [facility] 03-09-2011 influenza virus vaccine, unspecified formulation Van Olivarez APRN.NETWORK COORDINATOR Work Phone: [facility] 12-17-2007 influenza virus vaccine, unspecified formulation Van Olivarez BOATSWAINS MATE.[employer] Work Phone: [facility] Work Phone: 02-11-2006 influenza virus vaccine, unspecified formulation Van Olivarez BOATSWAINS MATE.[employer] Work Phone: [facility] Work Phone: 12-07-2003 influenza virus vaccine, unspecified formulation Van Krusesebastian BOATSWAINS MATE.[employer] Work Phone: [facility] Work Phone: 12-07-2003 pneumococcal polysaccharide vaccine, 23 valent Van Sher BOATSWAINS MATE.[employer] Work Phone: [facility] Work Phone: NEGATED: Highlighted row has not occurred!12-10-2021 COVID-19 booster vaccine, age 12+ yr, bivalent (BioNitrogen) Paresh Fonseca MD Work Phone: [facility] NEGATED: Highlighted row has not occurred!12-10-2021 influenza, high-dose, quadrivalent vaccine (FLUZONE HIGH DOSE QUADRIVALENT) Paresh Fonseca MD Work Phone: [facility] Medications Current Medications Medication Drug Class(es) [...] 10 units and notify provider K Phos [place]-Sod Phos Di & [place] [id number] MG (6 sources) take 155-852 tablets by mouth twice daily K Phos [place]-Sod Phos Di & [place] [phone] MG 1 tablet Orally twice daily Active take 155-852 tablets by mouth four times daily take 155-852 tablets by mouth four times daily K Phos [place]-Sod Phos Di & [place] [phone] MG 1 tablet Orally Four times [...] warfarin (Coumadin) 4 MG tablet 4mg T, , Sat, Sun 6mg M, W, Fr 0 [...] by mouth daily with lunch. Magic Cup [place] with lunch 7110 mL 0 12/11/2021 Active Comment on above: Take 237 mL by mouth daily with lunch. Magic Cup [place] with lunch polyethylene glycol 3350 80979 mg powder for oral solution (20 sources) [...] on above: Take 1 Packet by debi once daily. Dissolve dose in 4 - [...] Start: 12-11-2021 take 1 tablet by debi twice daily phosphorus (K PHOS NEUTRAL) 250 [...] Medicare MEDICARE MEDICAR E A AND B [id number] 2009-Present [phone] [address] [address] [place] [address] Medicare [id number] [id number] 2009 Medicare [id number] 1.13.159.2.7.3 .[id number] 2009 Unknown [employer] [place] [employer] [place] MEDICARE SUPPLEMENT [id number] 2009-Present [phone] [employer] [address] [place] [address] Indemnity [id number] 1.2.840.810296.1.13.159.2.7.3 .382272.315 2009 Unknown 1.2.840.762744. 1.13.159.2.7.3 .977110.315 2009 Unknown [id number] 2.16.8 40.1.219225.19 2009 Unknown [id number] 1959 Medicare [id number] 1959 Self-pay 1944 Unknown [id number] 2.16.840.1.361962.3.579.2.732 1944 Unknown [id number] 2.16.840.1.884025.3.579.2.593 1944 Unknown [id number] 2.16.840.1.659043.3.579.2.593 1944 Unknown [id number] 2.16.840.1.578269.3.579.2.593 1944 Unknown [id number] 2.16.840.1.470890.3.579.2.593 1944 Unknown [id number] 2.16.840.1.687918.3.579.2.593 1944 Unknown [id number] 2.16.840.1.688584.3.579.2.593 1944 Unknown [id number] 2.16.840.1.118861.3.579.2.593 1944 Unknown [id number] 2.16.840.1.474488.3.579.2.593 1944 Unknown [id number] 2.16.840.1.214532.3.579.2.593 1944 Unknown [id number] 2.16.840.1.083171.3.579.2.593 1944 Unknown [id number] 2.16.840.1.397178.3.579.2.593 1944 Unknown [id number] 2.16.840.1.539281.3.579.2.593 1944 Unknown [id number] 2.16.840.1.578431.3.579.2.593 1944 Unknown [id number] 2.16.840.1.390717.3.579.2.593 1944 Unknown [id number] 2.16.840.1.485051.3.579.2.593 1944 Unknown [id number] 2.16.840.1.022043.3.579.2.593 1944 Unknown [id number] 2.16.840.1.771600.3.579.2.593 1944 Unknown [id number] 2.16.840.1.569356.3.579.2.593 1944 Unknown [id number] 2.16.840.1.520702.3.579.2.593 1944 Unknown [id number] 2.16.840.1.319242.3.579.2.593 1944 Unknown [id number] 2.16.840.1.792001.3.579.2.593 1944 Unknown [id number] 2.16.840.1.628115.3.579.2.593 1944 Unknown [id number] 2.16840.1.501540.3.579.2.593 1944 Unknown [id number] 2.16.840.1.174045.3.579.2.593 1944 Unknown [id number] 2.16.840.1.650086.3.579.2.593 1944 Unknown [id number] 2.16.840.1.979954.3.579.2.593 1944 Unknown [id number] 2.16.840.1.949167.3.579.2.593 1944 Unknown [id number] 2.16.840.1.939912.3.579.2.593 1944 Unknown [id number] 2.16.840.1.432892.3.579.2.593 1944 Unknown [id number] 2.16.840.1.418213.3.579.2.593 1944 Unknown [id number] 2.16.840.1.025496.3.579.2.593 1944 Unknown [id number] 2.16.840.1.649080.3.579.2.593 1944 Unknown [id number] 2.16.840.1.251537.3.579.2.593 1944 Unknown [id number] 2.16.840.1.239445.3.579.2.593 1944 Unknown [id number] 2.16.840.1.718261.3.579.2.593 1944 Unknown [id number] 2.16.840.1.415037.3.579.2.593 1944 Unknown [id number] 2.16.840.1.166411.3.579.2.593 1944 Unknown [id number] 2.16.840.1.310905.3.579.2.593 1944 Unknown [id number] 2.16.840.1.636995.3.579.2.593 1944 Unknown [id number] 2.16.840.1.904500.3.579.2.593 1944 Unknown [id number] 2.16.840.1.865088.3.579.2.593 1944 Unknown [id number] 2.16.840.1.392032.3.579.2.593 1944 Unknown [id number] 2.16.840.1.698808.3.579.2.593 1944 Unknown [id number] 2.16.840.1.041600.3.579.2.593 1944 Unknown [id number] 2.16.840.1.785223.3.579.2.593 1944 Unknown [id number] 2.16.840.1.308578.3.579.2.593 1944 Unknown [id number] 2.16.840.1.523142.3.579.2.125 9 1944 Unknown [id number] 2.16.840.1.122610.3.579.2.125 9 Medicare Medicare Outpatient [id number] 2T [id number] Unknown [id number] 2.16.840.1.137896.3.579.2.593 Unknown [id number] 2.16.840.1.823896.3.579.2.593 Unknown [id number] 2.16.840.1.379656.3.579.2.531 Plan of Treatment Date Care Activity Detail Author Start: 06-17-2023 End: 06-17-2023 Patient encounter procedure 06/17/2023 2:15 PM EDT Office Visit [facility] [address] [facility] [address] [place] [address] Ni Cabrera DO [address] [facility] [email or web address] [address] [place] [address] [facility] [address] Start: 06-16-2023 Hemoglobin A1c measurement Diabetes: Hemoglobin A1C [facility] Start: 02-26-2023 BP CONTROLLED (<130/80) BP CONTROLLE D (<130/80) [facility] Start: 02-05-2023 BP CONTROLLED (<130/80) BP CONTROLLE D (<130/80) [facility] Start: 01-12-2023 BP CONTROLLED (<130/80) BP CONTROLLE D (<130/80) [facility] Start: 11-17-2022 BP CONTROLLED (<130/80) BP CONTROLLE D (<130/80) [facility] Start: 10-16-2022 Influenza vaccination C [facility] Start: 05-15-2022 Medicare Annual Wellness (AWV) Medicare Annual Wellness (AWV) [facility] Start: 04-08-2022 BP CONTROLLED (<130/80) BP CONTROLLE D (<130/80) [facility] Start: 02-15-2022 ADVANCE DIRECTIVE DISCUSSION ADVANCE DIRECTIVE DISCUSSION [facility] Start: 02-15-2022 DEPRESSION ASSESSMENT DEPRESSION ASS ESSMENT [facility] Start: 02-05-2022 COVID-19 VACCINE (5 - Yung risk series) COVID-19 VACCINE (5 - Yung risk series) [facility] Start: 11-27-2021 COVID-19 VACCINE (4 - Booster for Yung series) COVID-19 VACCINE (4 - Booster for Yung series) [facility] Start: 11-04-2021 Hemoglobin A1c/Hemoglobin.total in Blood HBA1C [facility] Start: 10-16-2021 Influenza vaccination C [facility] Start: 03-26-2021 COVID-19 VACCINE (3 - Yung risk 3-dose series) COVID-19 VACCINE (3 - Yung risk 3-dose series) [facility] Start: 03-26-2021 COVID-19 VACCINE (3 - Yung risk series) COVID-19 VACCINE (3 - Yung risk series) [facility] Start: 02-15-2021 ADVANCE DIRECTIVE DISCUSSION ADVANCE DIRECTIVE DISCUSSION [facility] Start: 02-15-2021 DEPRESSION ASSESSMENT DEPRESSION ASS ESSMENT [facility] Start: 01-05-2016 Hepatitis B screening URINE AL BUMIN:CREATININE RATIO [facility] Start: 07-31-2015 Pneumococcal Vaccine : 65+ Years (3 - PCV) Pneumococcal Vaccine: 65+ Years (3 - PCV) [facility] Start: 04-06-2015 Hemoglobin A1c/Hemoglobin.total in Blood HBA1C [facility] Start: 11-22-2010 Hepatitis B surface antibody level LDL CHOLESTEROL [facility] Start: 2009 ADULT PREVNAR-13 ADULT PREVNAR-13 Cl [facility] Start: 2009 PNEUMOVAX AGE 65 AND OVER WITH 5YR LOOKBACK (#1) PNEUMOVAX AGE 65 AND OVER WITH 5YR LOOKBACK (#1) [facility] Start: 1994 SHINGRIX VACCINE (1 of 2) SHINGRIX VACCINE (1 of 2) [facility] Start: 10-18-1963 HEPATITIS A (1 of 2 - Risk 2-dose series) HEPATITIS A (1 of 2 - Risk 2-dose series) [facility] Start: 10-18-1963 Hepatitis A Vaccine (1 of 2 - Risk 2-dose series) Hepatitis A Vaccine (1 of 2 - Risk 2-dose series) [facility] Start: 10-18-1963 SHINGRIX VACCINE (1 of 2) SHINGRIX VACCINE (1 of 2) [facility] Start: 10-18-1963 Urine microalbumin profile [facility] Start: 1962 ANNUAL PCP TEAM HAZARDOUS WASTE MANAGEMENT SPECIALIST MATTHEW DISEASE VISIT ANNUAL PCP TEAM CHRONIC DISEASE VISIT [facility] Start: 1956 Adult depression screening assessment DEPRESSION SCREENING [facility] Start: 1954 3 comp foot exam completed DIABETIC FOOT EXAM [facility] Start: 1954 Glaucoma screening Diabetes: R etinopathy Screening [facility] Start: 1954 Hepatitis C antibody , confirmatory test DILATED RETINAL EXAM [facility] Start: 1950 Pneumococcal Vaccine : 65+ (1 - PCV) Pneumococcal Vaccine: 65+ (1 - PCV) [facility] Start: 1950 PNEUMOCOCCAL: 65+ (1 - PCV) PNEUMOCOCCAL: 65+ (1 - PCV) [facility] Start: 1945 HEPATITIS A (1 of 2 - Risk 2-dose series) HEPATITIS A (1 of 2 - Risk 2-dose series) [facility] URINALYSIS, REFLEX MICROSCOPIC URINALYSIS, REFLEX MICROSCOPIC Lab Routine Screening for genitourinary condition Ordered: 10/06/2021 [facility] Work Phone: Comment on above: Ordered: 10/06/2021 URINALYSIS, REFLEX MICROSCOPIC URINALYSIS, REFLEX MICROSCOPIC Lab Routine Screening for genitourinary condition Ordered: 04/02/2022 [facility] Work Phone: Comment on above: Ordered: 04/02/2022 End: 11-17-2022 US LEG ARTERIAL PERIPH UNL VAS LAB US LEG ARTERIAL PERIPH UNL VAS LAB Vascular Lab Routine PAD (peripheral artery disease) (HCC) Nonhealing ulcer of heel (HCC) 1 Occurrences starting 11/17/2021 until 11/17/2022 [facility] Work Phone: Comment on above: 1 Occurrences starti ng 11/17/2021 until 11/17/2022 End: 11-17-2022 US LEG VEIN DVT UNL VAS LAB US LEG VEIN DVT UNL VAS LAB Vascular Lab Routine Acute deep vein thrombosis (DVT) of proximal end of right lower extremity (HCC) 1 Occurrences starting 11/17/2021 until 11/17/2022 [facility] Work Phone: Comment on above: 1 Occurrences starti ng 11/17/2021 until 11/17/2022 [facility]EV CT & VAS DANIEL BROTHERS CT & [...] Coronary arteriosclerosis; Translations: [Atherosclerotic heart disease of [place] coronary artery without angina pectoris] Onset: 7 [...] current use of immunosuppressive drug; Translations: [Other watermelon harvesting supervisor (current) drug therapy] Episodic Other aftercare (13 sources) Long-term current use of insulin; Translations: [long-term (current) use of insulin] Episodic Other aftercare (10 sources) terminal gauger supervisor (current) use of insulin; Translations: [[facility] CURRENT USE OF INSULIN] Onset: 2 Episodic Other aftercare (5 sources) terminal gauger supervisor (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 of anticoagulants; Translations: [NUTRITION SERVICES AIDE CURRNT USE ANTICOAGULANTS] Onset: 3 Episodic Other [...] 07-30-2006 Episodic Other aftercare (2 sources) Other watermelon harvesting supervisor (current) drug therapy; Translations: [OTH NUTRITION SERVICES AIDE CURRENT DRUG THERAPY] Onset: 02-05-2022 Episodic Other aftercare (4 sources) Encounter for orthopedic aftercare following surgical amputation; Translations: [ENC ORTHOPED AFTERCARE FLW SURG AMP] Onset: 02-05-2022 Episodic Other aftercare (4 sources) long-term (current) use of antibiotics; Translations: [NUTRITION SERVICES AIDE CURRENT USE ANTIBIOTICS] Onset: 12-20-2021 Episodic Other aftercare (1 source) long-term (current) use of aspirin; Translations: [[facility] CURRENT USE OF ASPIRIN] Onset: 01-19-2022 Episodic [...] Phone: Start: 01-12-2022 Prothrombin time Alissa Chavira BOATSWAINS MATE.NETWORK COORDINATOR Work Phone: Start: 12-01-2021 PACEMAKER CLINIC CHECK [facility] Provider Start: 11-29-2021 Microscopic examinat ion of blood, culture DR PROSPER LEES Comment on above: Performed By: #### B LDCX1 ####[facility] [address] [place] [address]DrSkylar Leal Start: 11-27-2021 Insertion of Infusio n [...] History of coronary artery bypass surgery Ni Sandhushawnee DO Work Phone: Start: 03-23-2012 History of renal transplant History of renal transplant Ni Cabrera DO Work Phone: Start: 09-07-2003 History of renal transplant KIDNEY TRANSPLANT STATUS Van Olivarez BOATSWAINS MATE.NETWORK COORDINATOR Work Phone: History of renal transplant Kidney replaced by transplant Artur Chen BOATSWAINS MATE.NETWORK COORDINATOR Work Phone: History of renal transplant Kidney replaced by transplant [facility] Work Phone: History of renal transplant Devon Moreira Other History of renal transplant Kidney replaced by transplant Asia Pike MD Work Phone: History of renal transplant Devon Moreira Other Results Test Name Value Interpretation Reference Range Facility Office Visiton 05-19-2023 Follow-up visit [id number] Alex Almonte 1945 M Date Provider Department Center 05/19/2023 166-CAITY IBRAHIM CARD [facility] Family History Problem Relation Age of Onset Cancer Mother Aneurysm Father Cancer Father Parkinsonism Father Family Status - Relation Status Age at Mother Father Level of Service:74823 [place] OFFICE/OUTPATIENT ESTABLISHED LOW MDM 20 MIN Reason for Visit and Comments: Follow-up [106525] - 6 month follow up Normal [facility] HbA1c (Bld) [Mass fraction]o n 03-18-2023 Interpretation and review of laboratory results Normal [facility] [employer] Risk Management POCT glycosylated hemoglobin (Hb A1C) docked deviceon 03-18-2023 HbA1c (Bld) [Mass fraction] 7.8 % [facility] CNPNon 12-25-2022 CNPN Telephone (TXCTGL) ALEX ALMONTE ([id number]) 1945 M Date Time Provider Department 12/25/22 KIDNEY TXP COORDINATORS TXCTGL During your visit today, we recorded the following information about you: Duane Ryan 12/25/2022 10:41 AM Signed Labs uploaded to [employer] [facility]. 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 Magic Cup [place] with lunch aspirin, enteric coated (ASPIRIN, ENTERIC [...] in am? thanks! RF Pts RN at [facility] reports pts sister picks up [...] Apply 0. (more content not included)... Normal [facility] Office Visiton 09-09-2022 Follow-up visit [id number] Alex Almonte 1945 M Date Provider Department Center 09/09/2022 1596-SARTHAK PARNELL CARD [facility] Family History Problem Relation Age of Onset Cancer Mother Aneurysm Father Cancer Father Parkinsonism Father Family Status - Relation Status Age at Mother Father Level of Service:[id number] [place] OFFICE/OUTPATIENT ESTABLISHED MOD MDM 30-39 MIN Normal [facility] Glucose Poct Glucometerson 0 07-20-2022 Commemt1 Glu2: Cleaned Meter Normal [facility] Comment on above: Result Comment: PERF ORMED BY: [facility] [address] [place] [address] PATHOLOGIST BRANCH SERVICE ASSOCIATE JOSE F ELLIOTT M.D. Performed By: #### G LULS #### Point of Care testing , Glucose [Mass/Vol] 176 mg/dL Normal [facility] Comment on above: Result Comment: [facility] [place] Glucose Reference Range is dependent on time and content of last meal. Glucose of more than 200 mg/dL in a nonstressed, ambulatory subject supports the diagnosis of Diabetes Mellitus. Performed By: #### G LULS #### Point of Care testing , FK506 (TACROLIMUS) WHOLE BLO ODon 07-12-2022 Tacrolimus (FK506), Blood 10.9 ng/mL Normal 2.0-20.0 [facility] Comment on above: Result Comment: Trou gh (immediately following transplant) 15.0 . Trough (steady state, 2 weeks or more after transplant): 3.0 - 8.0 . Performed by LC-MS/MS technology. Performed By: #### F K506T ####[facility] [address] [place], [place] [address]DrSkylar Leal CBC AUTO DIFFon 07-10-2022 BASO # 0.0 103/ul Normal 0.0-0.1 [facility] Comment on above: Performed By: #### C BC ####[facility] [address] [place] [id number]. Farhat Leal Basophils/100 WBC (Bld) 0.5 % Normal 0.2-2.0 [facility] Comment on above: Performed By: #### C BC ####[facility] [address] [place] [id number]. Farhat Leal EO # 0.3 103/ul Normal 0.0-0.7 [facility] Comment on above: Performed By: #### C BC ####[facility] [address] [place] [address]Dr. Farhat Leal Eosinophils/100 WBC (Bld) 4.9 % Normal 0.9-7.0 [facility] Comment on above: Performed By: #### C BC ####[facility] [address] [place] [address]Dr. Farhat Leal Erythrocyte distribution width (RBC) [Ratio] 13.8 % Normal 11.0-15.0 [facility] Comment on above: Performed By: #### C BC ####[facility] [address] [place] [id number]. Farhat Leal Hematocrit (Bld) [Volume fraction] 36.6 % Critically low 42.0-54.0 [facility] Comment on above: Performed By: #### C BC ####[facility] [address] [place] [id number]. Farhat Leal Hemoglobin (Bld) [Mass/Vol] 12.2 g/dL Critically low 14.0-18.0 [facility] Comment on above: Performed By: #### C BC ####[facility] [address] [place] [address]Dr. Farhat Leal IG # 0.01 10e3/ul Normal 0.00-0.03 [facility] Comment on above: Performed By: #### C BC ####[facility] [address] [place] [address]Dr. Madelynlorri Leal IG % 0.2 % Normal 0.0-0.5 [facility] Comment on above: Performed By: #### C BC ####[facility] [address] [place] [address]Dr. Farhat Elvis LYMPH # 2.2 103/ul Normal 1.2-3.8 [facility] Comment on above: Performed By: #### C BC ####[facility] [address] [place] [address]Dr. Madelynlorri Leal Lymphocytes/100 WBC (Bld) 33.9 % Normal 20.5-60.0 [facility] Comment on above: Performed By: #### C BC ####[facility] [address] [place] [address]Dr. Madelynlorri Leal MANUAL DIFF REQ NO Normal [facility] Comment on above: Performed By: #### C BC ####[facility] [address] [place] [address]Dr. Farhat Elvis MCH (RBC) [Entitic mass] 31.0 pg Normal 25.9-34.0 [facility] Comment on above: Performed By: #### C BC ####[facility] M[address]xt[address] [place], [place] [address]Dr. Farhat Elvis MCHC (RBC) [Mass/Vol] 33.3 g/dL Normal 29.9-35.2 [facility] Comment on above: Performed By: #### C BC ####[facility] [address] [place] [address]Dr. Farhat Elvis MCV (RBC) [Entitic vol] 93.1 fL Normal 80.0-94.0 [facility] Comment on above: Performed By: #### C BC ####[facility] M[address]msj[address] [place], [place] [address]Dr. Farhat Leal MONO # 0.7 103/ul Normal 0.3-0.8 [facility] Comment on above: Performed By: #### C BC ####[facility] X[address] [place] [address]Dr. Farhat Leal Monocytes/100 WBC (Bld) 10.8 % Normal 1.7-12.0 [facility] Comment on above: Performed By: #### C BC ####[facility] [address] [place] [address]Dr. Farhat Leal NEUT # 3.2 103/ul Normal 1.4-6.5 [facility] Comment on above: Performed By: #### C BC ####[facility] [address] [place] [address]Dr. Farhat Leal Neutrophils/100 WBC (Bld) 49.7 % Normal 43.0-75.0 [facility] Comment on above: Performed By: #### C BC ####[facility] [address] [place] [address]Dr. Farhat Leal Platelet mean volume (Bld) [Entitic vol] 10.9 fL Normal 9.5-13.5 [facility] Comment on above: Performed By: #### C BC ####[facility] Kyiw[address] [place], [place] [address]Dr. Farhat Leal PLT 195 103/ul Normal 150-450 [facility] Comment on above: Performed By: #### C BC ####[facility] R[address] [place], [place] [address]Dr. Farhat Leal RBC 3.93 106/ul Critically low 4.70-6.10 [facility] Comment on above: Performed By: #### C BC ####[facility] Gdosfcgxfl[address] [place], [place] [address]Dr. Farhat Leal WBC 6.4 103/ul Normal 4.0-11.0 [facility] Comment on above: Performed By: #### C BC ####[facility] Mgdhigafsn2[address] [place], [place] [address]Dr. Farhat Leal MAGNESIUMon 07-10-2022 Magnesium [Mass/Vol] 1.9 mg/dL Normal 1.8-2.4 [facility] Comment on above: Performed By: #### HENRI Winters ####[facility] [address] [place] [address]Dr. Madelynlorri Leal PHOSPHORUSon 07-10-2022 Phosphate [Mass/Vol] 4.7 mg/dL Normal 2.6-4.7 [facility] Comment on above: Performed By: #### M HENRI Manzo ####[facility] R[address]fs[address] [place] [address]Dr. Farhat Leal PROF 14(COMP METB)on 023 Albumin [Mass/Vol] 2.7 g/dL Critically low 3.4-5.0 [facility] Comment on above: Performed By: #### C MP ####[facility] Tutunjgosr[address] [place], [place] [address]Dr. Farhat Leal Albumin/Globulin [Mass ratio] 0.8 {ratio} Normal [facility] Comment on above: Performed By: #### C MP ####[facility] Uyscnrwq[address] [place], [place] [address]Dr. Madelynlorri Leal ALP [Catalytic activity/Vol] 59 U/L Normal 46-116 [facility] Comment on above: Performed By: #### C MP ####[facility] P[address]xt[address] [place], [place] [address]Dr. Madelynlorri Leal ALT [Catalytic activity/Vol] 16 U/L Normal 16-63 [facility] Comment on above: Performed By: #### C MP ####[facility] St[address]ct[address] [place], [place] [address]Dr. Farhat Leal Anion gap [Moles/Vol] 12.3 mmol/L Normal [facility] Comment on above: Performed By: #### C MP ####[facility] [address]jnw[address] [place] [address]Dr. Madelynlorri Leal AST [Catalytic activity/Vol] 17 U/L Normal 15-37 [facility] Comment on above: Performed By: #### C MP ####[facility] [address]ukktbb[address] [place] [address]Dr. Farhat Leal Bilirubin [Mass/Vol] 0.5 mg/dL Normal 0.2-1.0 [facility] Comment on above: Performed By: #### C MP ####[facility] [address]jfbe[address] [place] [address]Dr. Farhat Leal Calcium [Mass/Vol] 8.5 mg/dL Normal 8.5-10.1 [facility] Comment on above: Performed By: #### C MP ####[facility] Hy[address]otmxeq[address] [place] [address]Dr. Farhat Leal Chloride [Moles/Vol] 104 mmol/L Normal 98-107 [facility] Comment on above: Performed By: #### C MP ####[facility] Jqnnytrdad[address] [place], [place] [address]Dr. Farhat Leal CO2 [Moles/Vol] 27.6 mmol/L Normal 21.0-32.0 [facility] Comment on above: Performed By: #### C MP ####[facility] [address]bs[address]fp[address] [place], [place] [address]Dr. Farhat Leal Creatinine [Mass/Vol] 1.79 mg/dL Critically high 0.70-1.30 [facility] Comment on above: Performed By: #### C MP ####[facility] Qpitbrjlrx[address] [place], [place] [address]Dr. Farhat Leal EGFR-AF DANISH 45 mL/min/1.73m2 Critically low >=60 [facility] Comment on above: Performed By: #### C MP ####[facility] Xcwvmuefiq[address] [place], [place] [address]Dr. Farhat Leal EGFR-NON AF DANISH 37 mL/min/1.73m2 Critically low >=60 [facility] Comment on above: Performed By: #### C MP ####[facility] Lsphbczgxs[address] [place], [place] [address]Dr. Farhat Leal Globulin (S) [Mass/Vol] 3.2 g/dL Normal [facility] Comment on above: Performed By: #### C MP ####[facility] [address] [place] [address]Dr. Farhat Leal Glucose [Mass/Vol] 203 mg/dL Critically high 74-106 [facility] Comment on above: Performed By: #### C MP ####[facility] X[address]vbdw9[address] [place] [id number]. Farhat Leal Potassium [Moles/Vol] 3.9 mmol/L Normal 3.5-5.1 [facility] Comment on above: Performed By: #### C MP ####[facility] [address]wp[address]qo[address] [place] [address]Dr. Farhat Leal Protein [Mass/Vol] 5.9 g/dL Critically low 6.4-8.2 [facility] Comment on above: Performed By: #### C MP ####[facility] Ohgrddnmqf23[address] [place], [place] [address]Dr. Farhat Leal Sodium [Moles/Vol] 140 mmol/L Normal 136-145 [facility] Comment on above: Performed By: #### C MP ####[facility] Lv[address]uxappp01[address] [place], [place] [address]Dr. Farhat Leal Urea nitrogen [Mass/Vol] 61.0 mg/dL Critically high 7.0-18.0 [facility] Comment on above: Performed By: #### C MP ####[facility] Vxexjricjx[address] [place], [place] [address]Dr. Farhat Leal Urea nitrogen/Creatinine [Mass ratio] 34.1 mg/mg Normal [facility] Comment on above: Performed By: #### C MP ####[facility] Mdixhdspho[address] [place], [place] [address]Dr. Farhat Leal PROTIMEon 07-10-2022 INR Coag (PPP) [Relative time] 2.95 {INR} Normal [facility] Comment on above: Performed By: #### P T ####[facility] Ifecutjuob[address] [place], [place] [address]Dr. Farhat Leal INR GUIDELINES SEE BELOW Normal [facility] Comment on above: Result Comment: MALINA RED INR: 2.0 - 3.0 CONDITIONS NOT LISTED BELOW 2.5 - 3.5 FOR PROSTHETIC HEART VALVE REPLACEMENT 2.5 - 3.5 RECURRENT THROMBOSIS Performed By: #### P T ####[facility] Axqerbavhs[address] [place], [place] [address]Dr. Farhat Leal PT Coag (PPP) [Time] 29.4 s Critically high 9.0-11.6 [facility] Comment on above: Performed By: #### P T ####[facility] Qhlwjvidsx[address] [place], [place] [address]Dr. Fahrat Leal FK506 (TACROLIMUS) WHOLE BLO ODon 07-07-2022 Tacrolimus (FK506), Blood 8.3 ng/mL Normal 2.0-20.0 [facility] Comment on above: Result Comment: Trou gh (immediately following transplant) 15.0 . Trough (steady state, 2 weeks or more after transplant): 3.0 - 8.0 . Performed by LC-MS/MS technology. Performed By: #### F K506T ####[facility] Bizmissjhs[address] [place], [place] [address]Dr. Farhat Elvis CBC AUTO DIFFon 07-03-2022 BASO # 0.0 103/ul Normal 0.0-0.1 [facility] Comment on above: Performed By: #### C BC ####[facility] Qrnwosfucq[address] [place], [place] [address]Dr. Madelynlorri Leal Basophils/100 WBC (Bld) 0.6 % Normal 0.2-2.0 [facility] Comment on above: Performed By: #### C BC ####[facility] Vnkxmbavmy[address] [place], [place] [address]Dr. Madelynlorri Leal EO # 0.3 103/ul Normal 0.0-0.7 [facility] Comment on above: Performed By: #### C BC ####[facility] Ebkcdgykfy[address] [place], [place] [address]Dr. Farhat Leal Eosinophils/100 WBC (Bld) 4.1 % Normal 0.9-7.0 [facility] Comment on above: Performed By: #### C BC ####[facility] I[address]mpgqqx[address] [place], [place] [address]Dr. Madelynlorri Leal Erythrocyte distribution width (RBC) [Ratio] 14.0 % Normal 11.0-15.0 [facility] Comment on above: Performed By: #### C BC ####[facility] X[address]hc[address] [place] [address]Dr. Farhat Leal Hematocrit (Bld) [Volume fraction] 35.9 % Critically low 42.0-54.0 [facility] Comment on above: Performed By: #### C BC ####[facility] U[address]msnbdfzu[address] [place] [address]Dr. Madelynlorri Lael Hemoglobin (Bld) [Mass/Vol] 12.0 g/dL Critically low 14.0-18.0 [facility] Comment on above: Performed By: #### C BC ####[facility] [address] [place] [address]Dr. Farhat Leal IG # 0.04 10e3/ul Critically high 0.00-0.03 [facility] Comment on above: Performed By: #### C BC ####[facility] Ifbmeqzzwc16[address] [place] [address]Dr. Farhat Leal IG % 0.6 % Critically high 0.0-0.5 [facility] Comment on above: Performed By: #### C BC ####[facility] Sx[address]ozdl[address] [place] [address]Dr. Farhat Leal LYMPH # 1.5 103/ul Normal 1.2-3.8 [facility] Comment on above: Performed By: #### C BC ####[facility] Oigwucjfkq15[address] [place] [address]Dr. Farhat Leal Lymphocytes/100 WBC (Bld) 21.5 % Normal 20.5-60.0 [facility] Comment on above: Performed By: #### C BC ####[facility] Iz[address]vicee[address] [place] [address]Dr. Farhat Leal MANUAL DIFF REQ NO Normal [facility] Comment on above: Performed By: #### C BC ####[facility] Fvmkssndvf[address] [place], [place] [address]Dr. Farhat Leal MCH (RBC) [Entitic mass] 30.8 pg Normal 25.9-34.0 [facility] Comment on above: Performed By: #### C BC ####[facility] Xkx[address]onxot8368 [place] [id number]. Farhat Leal MCHC (RBC) [Mass/Vol] 33.4 g/dL Normal 29.9-35.2 [facility] Comment on above: Performed By: #### C BC ####[facility] Lbvlerkcef7235 [place] [address]Dr. Farhat Leal MCV (RBC) [Entitic vol] 92.1 fL Normal 80.0-94.0 [facility] Comment on above: Performed By: #### C BC ####[facility] Kblyrwwvzc96[address] [place] [address]Dr. Farhat Leal MONO # 0.6 103/ul Normal 0.3-0.8 [facility] Comment on above: Performed By: #### C BC ####[facility] Lvrabalrzy[address] [place], [place] [address]Dr. Madelynlorri Leal Monocytes/100 WBC (Bld) 8.7 % Normal 1.7-12.0 [facility] Comment on above: Performed By: #### C BC ####[facility] [address] [place], [place] [address]Dr. Farhat Leal NEUT # 4.4 103/ul Normal 1.4-6.5 [facility] Comment on above: Performed By: #### C BC ####[facility] Bdpuggoznf[address] [place], [place] [address]Dr. Farhat Elvis Neutrophils/100 WBC (Bld) 64.5 % Normal 43.0-75.0 [facility] Comment on above: Performed By: #### C BC ####[facility] Z[address]avuymbkl70[address] [place] [address]Dr. Farhat Leal Platelet mean volume (Bld) [Entitic vol] 10.1 fL Normal 9.5-13.5 [facility] Comment on above: Performed By: #### C BC ####[facility] Ovmkltvdop[address] [place], [place] [address]Dr. Farhat Elvis PLT 177 103/ul Normal 150-450 [facility] Comment on above: Performed By: #### C BC ####[facility] Vnckuothuk[address] [place] [address]Dr. Farhat Leal RBC 3.90 106/ul Critically low 4.70-6.10 [facility] Comment on above: Performed By: #### C BC ####[facility] Ioqgvuvvth69[address] [place] [address]Dr. Farhat Leal WBC 6.8 103/ul Normal 4.0-11.0 [facility] Comment on above: Performed By: #### C BC ####[facility] Sjxcbrxxcs6557 [place] [address]Dr. Farhat Leal PROF 14(COMP METB)on 023 Albumin [Mass/Vol] 2.8 g/dL Critically low 3.4-5.0 [facility] Comment on above: Performed By: #### C MP ####[facility] Olwrdlsyxt4[address] [place] [address]Dr. Farhat Leal Albumin/Globulin [Mass ratio] 0.8 {ratio} Normal [facility] Comment on above: Performed By: #### C MP ####[facility] S[address]udkkfmf[address] [place], [place] [address]Dr. Farhat Leal ALP [Catalytic activity/Vol] 68 U/L Normal 46-116 [facility] Comment on above: Performed By: #### C MP ####[facility] Pbzcokgitx[address] [place], [place] [address]Dr. Farhat Leal ALT [Catalytic activity/Vol] 20 U/L Normal 16-63 [facility] Comment on above: Performed By: #### C MP ####[facility] Avizxalarm[address] [place], [place] [address]Dr. Farhat Leal Anion gap [Moles/Vol] 11.1 mmol/L Normal [facility] Comment on above: Performed By: #### C MP ####[facility] [address]dthalrfve[address] [place], [place] [address]Dr. Farhat Leal AST [Catalytic activity/Vol] 22 U/L Normal 15-37 [facility] Comment on above: Performed By: #### C MP ####[facility] Ypqtzuoddb397[address] [place], [place] [address]Dr. Farhat Leal Bilirubin [Mass/Vol] 0.4 mg/dL Normal 0.2-1.0 [facility] Comment on above: Performed By: #### C MP ####[facility] Mhuzzklmnj5619[address] [place], [place] [address]Dr. Farhat Leal Calcium [Mass/Vol] 8.5 mg/dL Normal 8.5-10.1 [facility] Comment on above: Performed By: #### C MP ####[facility] Ubqbhpasbm666426 [address] [place], [place] [address]Dr. Farhat Leal Chloride [Moles/Vol] 106 mmol/L Normal 98-107 [facility] Comment on above: Performed By: #### C MP ####[facility] Clqomdsini167226 [address] [place], [place] [address]Dr. Farhat Leal CO2 [Moles/Vol] 29.1 mmol/L Normal 21.0-32.0 The [facility] Comment on above: Performed By: #### C MP ####[facility] Uaweborukm544926 [address] [place], [place] [address]Dr. Farhat Leal Creatinine [Mass/Vol] 1.70 mg/dL Critically high 0.70-1.30 [facility] Comment on above: Performed By: #### C MP ####[facility] Xsalspjpow0745[address] [place], [place] [address]Dr. Farhat Leal EGFR-AF DANISH 48 mL/min/1.73m2 Critically low >=60 [facility] Comment on above: Performed By: #### C MP ####[facility] Vxsubeotuw917026 [address] [place], [place] [address]Dr. Farhat Leal EGFR-NON AF DANISH 39 mL/min/1.73m2 Critically low >=60 The [facility] Comment on above: Performed By: #### C MP ####[facility] Lirwovsxlz027926 [address] [place], [place] [address]Dr. Farhat Leal Globulin (S) [Mass/Vol] 3.6 g/dL Normal [facility] Comment on above: Performed By: #### C MP ####[facility] Bscdgcopyn[address] [place] [id number]. Farhat Leal Glucose [Mass/Vol] 312 mg/dL Critically high 74-106 T [facility] Comment on above: Performed By: #### C MP ####[facility] Ikzwegejqm0723 [place] [address]Dr. Farhat Leal Potassium [Moles/Vol] 4.2 mmol/L Normal 3.5-5.1 [facility] Comment on above: Performed By: #### C MP ####[facility] Bgvvobyeiy6499 [place] [address]Dr. Farhat Leal Protein [Mass/Vol] 6.4 g/dL Normal 6.4-8.2 [facility] Comment on above: Performed By: #### C MP ####[facility] Ysznxihfwy441826 [address] [place], [place] [address]Dr. Madelynlorri Leal Sodium [Moles/Vol] 142 mmol/L Normal 136-145 [facility] Comment on above: Performed By: #### C MP ####[facility] Usukrfokfv797926 [address] [place], [place] [address]Dr. Farhat Elvis Urea nitrogen [Mass/Vol] 49.0 mg/dL Critically high 7.0-18.0 [facility] Comment on above: Performed By: #### C MP ####[facility] Jaiydhjewr65[address] [place] [address]Dr. Farhat Elvis Urea nitrogen/Creatinine [Mass ratio] 28.8 mg/mg Normal [facility] Comment on above: Performed By: #### C MP ####[facility] Gsjhwbfacr4472 [place] [address]Dr. Farhat Elvis PROTIMEon 07-03-2022 INR Coag (PPP) [Relative time] 2.23 {INR} Normal [facility] Comment on above: Performed By: #### P T ####[facility] Illakqxnur7[address] [place] [address]Dr. Farhat Leal INR GUIDELINES SEE BELOW Normal [facility] Comment on above: Result Comment: MALINA RED INR: 2.0 - 3.0 CONDITIONS NOT LISTED BELOW 2.5 - 3.5 FOR PROSTHETIC HEART VALVE REPLACEMENT 2.5 - 3.5 RECURRENT THROMBOSIS Performed By: #### P T ####[facility] Goktubyrek855826 [address] [place], [place] [address]DrSkylar Leal PT Coag (PPP) [Time] 22.6 s Critically high 9.0-11.6 [facility] Comment on above: Performed By: #### P T ####[facility] Acpopwsuqw384426 [address] [place], [place] [address]DrSkylar Leal FK506 (TACROLIMUS) WHOLE BLO ODon 06-29-2022 Tacrolimus (FK506), Blood 12.2 ng/mL Normal 2.0-20.0 [facility] Comment on above: Result Comment: Trou gh (immediately following transplant) 15.0 . Trough (steady state, 2 weeks or more after transplant): 3.0 - 8.0 . Performed by LC-MS/MS technology. Performed By: #### F K506T ####[facility] Cnwzxhhywb243226 [address] [place], [place] [address]DrSkylar Leal CBC AUTO DIFFon 06-26-2022 BASO # 0.0 103/ul Normal 0.0-0.1 [facility] Comment on above: Performed By: #### C BC ####[facility] Bbzbxmbztb229626 [address] [place], [place] [address]DrSkylar Leal Basophils/100 WBC (Bld) 0.5 % Normal 0.2-2.0 [facility] Comment on above: Performed By: #### C BC ####[facility] Eudarezmjy7658[address] [place], [place] [address]DrSkylar Leal EO # 0.3 103/ul Normal 0.0-0.7 [facility] Comment on above: Performed By: #### C BC ####[facility] Zgzihdosnk147226 [address] [place], [place] [address]DrSkylar Leal Eosinophils/100 WBC (Bld) 4.3 % Normal 0.9-7.0 [facility] Comment on above: Performed By: #### C BC ####[facility] Cugizykqbd514826 [address] [place], [place] [address]DrSkylar Leal Erythrocyte distribution width (RBC) [Ratio] 14.1 % Normal 11.0-15.0 [facility] Comment on above: Performed By: #### C BC ####[facility] Wxkjpynnyu5271 [place] [address]Dr. Farhat Leal Hematocrit (Bld) [Volume fraction] 35.4 % Critically low 42.0-54.0 [facility] Comment on above: Performed By: #### C BC ####[facility] Modsoevxkg271726 [address] [place], [place] [address]Dr. Farhat Leal Hemoglobin (Bld) [Mass/Vol] 11.8 g/dL Critically low 14.0-18.0 [facility] Comment on above: Performed By: #### C BC ####[facility] Ubczeunscw260[address] [place], [place] [address]DrSkylar Farhat Leal IG # 0.02 10e3/ul Normal 0.00-0.03 [facility] Comment on above: Performed By: #### C BC ####[facility] Fzbrpfqnhg830526 [address] [place], [place] [address]Dr. Farhat Leal IG % 0.3 % Normal 0.0-0.5 [facility] Comment on above: Performed By: #### C BC ####[facility] Atykezwauw577226 [address] [place], [place] [address]DrSkylar Farhat Leal LYMPH # 2.4 103/ul Normal 1.2-3.8 [facility] Comment on above: Performed By: #### C BC ####[facility] Qoqtbizknt642026 [address] [place], [place] [address]DrSkylar Farhat Leal Lymphocytes/100 WBC (Bld) 40.4 % Normal 20.5-60.0 [facility] Comment on above: Performed By: #### C BC ####[facility] Hibiqkpevm357926 [address] [place], [place] [address]DrSkylar Farhat Elvis MANUAL DIFF REQ NO Normal [facility] Comment on above: Performed By: #### C BC ####[facility] Zwopmjplfc103026 [address] [place], [place] [address]DrSkylar Leal MCH (RBC) [Entitic mass] 31.0 pg Normal 25.9-34.0 [facility] Comment on above: Performed By: #### C BC ####[facility] Hrphqtlcqb8394 [place] [address]Dr. Farhat Leal MCHC (RBC) [Mass/Vol] 33.3 g/dL Normal 29.9-35.2 [facility] Comment on above: Performed By: #### C BC ####[facility] Jzunpgstkf678926 [address] [place], [place] [address]DrSkylar Leal MCV (RBC) [Entitic vol] 92.9 fL Normal 80.0-94.0 [facility] Comment on above: Performed By: #### C BC ####[facility] Lqrbglwexn263026 [address] [place], [place] [address]Dr. Farhat Leal MONO # 0.7 103/ul Normal 0.3-0.8 [facility] Comment on above: Performed By: #### C BC ####[facility] Kwhfxqagco467126 [address] [place], [place] [address]Dr. Farhat Leal Monocytes/100 WBC (Bld) 11.1 % Normal 1.7-12.0 [facility] Comment on above: Performed By: #### C BC ####[facility] Wtvirofchf6366[address] [place], [place] [address]Dr. Farhat Leal NEUT # 2.6 103/ul Normal 1.4-6.5 [facility] Comment on above: Performed By: #### C BC ####[facility] Pbdarxxdjb115126 [address] [place], [place] [address]Dr. Farhat Leal Neutrophils/100 WBC (Bld) 43.4 % Normal 43.0-75.0 [facility] Comment on above: Performed By: #### C BC ####[facility] Bilaxsppdc846526 [address] [place], [place] [address]Dr. Farhat Leal Platelet mean volume (Bld) [Entitic vol] 10.4 fL Normal 9.5-13.5 [facility] Comment on above: Performed By: #### C BC ####[facility] Izfoznhcmg872526 [address] [place], [place] [address]Dr. Farhat Leal PLT 211 103/ul Normal 150-450 [facility] Comment on above: Performed By: #### C BC ####[facility] Jzunnmgevd1639 [place] [address]Dr. Farhat Leal RBC 3.81 106/ul Critically low 4.70-6.10 [facility] Comment on above: Performed By: #### C BC ####[facility] Zcaabaphuo1092 [place] [address]Dr. Farhat Leal WBC 6.0 103/ul Normal 4.0-11.0 [facility] Comment on above: Performed By: #### C BC ####[facility] Jtxkpsfmgo095526 [address] [place], [place] [address]DrSkylar Leal PROF 14(COMP METB)on 023 Albumin [Mass/Vol] 2.6 g/dL Critically low 3.4-5.0 [facility] Comment on above: Performed By: #### C MP ####[facility] Ulnrcpwtvy7035[address] [place], [place] [address]DrSkylar Leal Albumin/Globulin [Mass ratio] 0.8 {ratio} Normal [facility] Comment on above: Performed By: #### C MP ####[facility] Anflcwnzpf145426 [address] [place], [place] [address]Dr. Farhat Leal ALP [Catalytic activity/Vol] 64 U/L Normal 46-116 [facility] Comment on above: Performed By: #### C MP ####[facility] Crcnikbvfi3784 [place] [address]DrSkylar Leal ALT [Catalytic activity/Vol] 18 U/L Normal 16-63 [facility] Comment on above: Performed By: #### C MP ####[facility] Udwmffpekx972226 [address] [place], [place] [address]DrSkylar Leal Anion gap [Moles/Vol] 10.2 mmol/L Normal [facility] Comment on above: Performed By: #### C MP ####[facility] Hujmjezwqd046426 [address] [place], [place] [address]DrSkylar Leal AST [Catalytic activity/Vol] 16 U/L Normal 15-37 [facility] Comment on above: Performed By: #### C MP ####[facility] Fnexpcpypk9510 [place] [address]Dr. Farhat Elvis Bilirubin [Mass/Vol] 0.6 mg/dL Normal 0.2-1.0 [facility] Comment on above: Performed By: #### C MP ####[facility] Fdvddkjbgy414426 [address] [place], [place] [address]Dr. Farhat Elvis Calcium [Mass/Vol] 8.5 mg/dL Normal 8.5-10.1 [facility] Comment on above: Performed By: #### C MP ####[facility] Cpaxmojnet651826 [address] [place], [place] [address]Dr. Farhat Leal Chloride [Moles/Vol] 106 mmol/L Normal 98-107 [facility] Comment on above: Performed By: #### C MP ####[facility] Yzbberpzuz354226 [address] [place], [place] [address]Dr. Farhat Elvis CO2 [Moles/Vol] 29.8 mmol/L Normal 21.0-32.0 [facility] Comment on above: Performed By: #### C MP ####[facility] Aodsnptcwk715126 [address] [place], [place] [address]Dr. Farhat Elvis Creatinine [Mass/Vol] 1.60 mg/dL Critically high 0.70-1.30 [facility] Comment on above: Performed By: #### C MP ####[facility] Vhdzbjgcvg207126 [address] [place], [place] [address]Dr. Madelynlorri Elvis EGFR-AF DANISH 51 mL/min/1.73m2 Critically low >=60 The [facility] Comment on above: Performed By: #### C MP ####[facility] Kkeamkwnjp123326 [address] [place], [place] [address]Dr. Farhat Leal EGFR-NON AF DANISH 42 mL/min/1.73m2 Critically low >=60 [facility] Comment on above: Performed By: #### C MP ####[facility] Ethzmmwjhg575826 [address] [place], [place] [address]Dr. Farhat Leal Globulin (S) [Mass/Vol] 3.4 g/dL Normal [facility] Comment on above: Performed By: #### C MP ####[facility] Wjislirobo293626 [address] [place], [place] [address]Dr. Madelynlorri Elvis Glucose [Mass/Vol] 178 mg/dL Critically high 74-106 T [facility] Comment on above: Performed By: #### C MP ####[facility] Liohpkwbat003426 [address] [place], [place] [address]Dr. Farhat Leal Potassium [Moles/Vol] 4.0 mmol/L Normal 3.5-5.1 [facility] Comment on above: Performed By: #### C MP ####[facility] Icdozqltqv1725[address] [place], [place] [address]Dr. Farhat Leal Protein [Mass/Vol] 6.0 g/dL Critically low 6.4-8.2 Th [facility] Comment on above: Performed By: #### C MP ####[facility] Fshuqwrahn873626 [address] [place], [place] [address]Dr. Farhat Leal Sodium [Moles/Vol] 142 mmol/L Normal 136-145 [facility] Comment on above: Performed By: #### C MP ####[facility] Kabjxbivnt429126 [address] [place], [place] [address]Dr. Farhat Leal Urea nitrogen [Mass/Vol] 49.0 mg/dL Critically high 7.0-18.0 [facility] Comment on above: Performed By: #### C MP ####[facility] Uiwwkhmpnr969626 [address] [place], [place] [address]Dr. Farhat Leal Urea nitrogen/Creatinine [Mass ratio] 30.6 mg/mg Normal [facility] Comment on above: Performed By: #### C MP ####[facility] Queltekedk935326 [address] [place], [place] [address]Dr. Farhat Leal PROTIMEon 06-26-2022 INR Coag (PPP) [Relative time] 1.77 {INR} Normal [facility] Comment on above: Performed By: #### P T ####[facility] Vibxknyhir864526 [address] [place], [place] [address]Dr. Farhat Leal INR GUIDELINES SEE BELOW Normal [facility] Comment on above: Result Comment: MALINA RED INR: 2.0 - 3.0 CONDITIONS NOT LISTED BELOW 2.5 - 3.5 FOR PROSTHETIC HEART VALVE REPLACEMENT 2.5 - 3.5 RECURRENT THROMBOSIS Performed By: #### P T ####[facility] Kcmsyvabms316426 [address] [place], [place] [address]Dr. Farhat Leal PT Coag (PPP) [Time] 18.2 s Critically high 9.0-11.6 [facility] Comment on above: Performed By: #### P T ####[facility] Fxqlbkowvt076826 [address] [place], [place] [address]Dr. Farhat Leal FK506 (TACROLIMUS) WHOLE BLO ODon 06-22-2022 Tacrolimus (FK506), Blood 24.5 ng/mL Invalid Interpretation Code 2.0-20.0 [facility] Comment on above: Result Comment: Trou gh (immediately following transplant) 15.0 . Trough (steady state, 2 weeks or more after transplant): 3.0 - 8.0 . Performed by LC-MS/MS technology.Patient drug level exceeds published reference range. Evaluateclinically for signs of potential toxicity. Performed By: #### F K506T ####[facility] Ibtcvsxuqh4717[address] [place], [place] [address]Dr. Farhat Leal CBC AUTO DIFFon 06-19-2022 BASO # 0.1 103/ul Normal 0.0-0.1 [facility] Comment on above: Performed By: #### C BC ####[facility] Uvzzckzgou395126 [address] [place], [place] [address]DrSkylar Leal Basophils/100 WBC (Bld) 0.7 % Normal 0.2-2.0 [facility] Comment on above: Performed By: #### C BC ####[facility] Hjmwmgastq131626 [address] [place], [place] [address]Dr. Farhat Leal EO # 0.4 103/ul Normal 0.0-0.7 [facility] Comment on above: Performed By: #### C BC ####[facility] Ifzvkmdgng175826 [address] [place], [place] [address]Dr. Farhat Leal Eosinophils/100 WBC (Bld) 5.7 % Normal 0.9-7.0 [facility] Comment on above: Performed By: #### C BC ####[facility] Wjnkrimjlv928826 [address] [place], [place] [address]Dr. Farhat Leal Erythrocyte distribution width (RBC) [Ratio] 14.5 % Normal 11.0-15.0 [facility] Comment on above: Performed By: #### C BC ####[facility] Tqhugreiyp565926 [address] [place], [place] [address]Dr. Farhat Leal Hematocrit (Bld) [Volume fraction] 34.1 % Critically low 42.0-54.0 [facility] Comment on above: Performed By: #### C BC ####[facility] Nlxmzpgctx095026 [address] [place], [place] [address]Dr. Farhat Leal Hemoglobin (Bld) [Mass/Vol] 11.3 g/dL Critically low 14.0-18.0 [facility] Comment on above: Performed By: #### C BC ####[facility] Oaspkxirlc487926 [address] [place], [place] [address]Dr. Farhat Leal IG # 0.02 10e3/ul Normal 0.00-0.03 [facility] Comment on above: Performed By: #### C BC ####[facility] Plqerjiyzw066326 [address] [place], [place] [address]Dr. Farhat Leal IG % 0.3 % Normal 0.0-0.5 [facility] Comment on above: Performed By: #### C BC ####[facility] Ctlyowidih810426 [address] [place], [place] [address]Dr. Farhat Leal LYMPH # 3.1 103/ul Normal 1.2-3.8 [facility] Comment on above: Performed By: #### C BC ####[facility] Lymsdwihey221226 [address] [place], [place] [address]Dr. Farhat Leal Lymphocytes/100 WBC (Bld) 40.6 % Normal 20.5-60.0 [facility] Comment on above: Performed By: #### C BC ####[facility] Ujizgmnpwg2660[address] [place], [place] [address]Dr. Farhat Leal MANUAL DIFF REQ NO Normal [facility] Comment on above: Performed By: #### C BC ####[facility] Hylaouvtbe3291 [place] [address]Dr. Farhat Elvis MCH (RBC) [Entitic mass] 30.6 pg Normal 25.9-34.0 [facility] Comment on above: Performed By: #### C BC ####[facility] Hyksanzmua904426 [address] [place], [place] [address]Dr. Farhat Leal MCHC (RBC) [Mass/Vol] 33.1 g/dL Normal 29.9-35.2 [facility] Comment on above: Performed By: #### C BC ####[facility] Cdjjvjusnf5870[address] [place], [place] [address]Dr. Farhat Leal MCV (RBC) [Entitic vol] 92.4 fL Normal 80.0-94.0 [facility] Comment on above: Performed By: #### C BC ####[facility] Jhmwujqges49232[address] [place], [place] [address]Dr. Farhat Leal MONO # 0.8 103/ul Normal 0.3-0.8 [facility] Comment on above: Performed By: #### C BC ####[facility] Rilumwcyyi598[address] [place], [place] [address]Dr. Farhat Leal Monocytes/100 WBC (Bld) 10.6 % Normal 1.7-12.0 [facility] Comment on above: Performed By: #### C BC ####[facility] Wgtzabhwbx2407[address] [place], [place] [address]DrSkylar Leal NEUT # 3.2 103/ul Normal 1.4-6.5 [facility] Comment on above: Performed By: #### C BC ####[facility] Dvhbmsrkhe588326 [address] [place], [place] [address]DrSkylar Leal Neutrophils/100 WBC (Bld) 42.1 % Critically low 43.0-75.0 [facility] Comment on above: Performed By: #### C BC ####[facility] Eskhfhldkv2298[address] [place], [place] [address]Dr. Farhat Leal Platelet mean volume (Bld) [Entitic vol] 10.6 fL Normal 9.5-13.5 [facility] Comment on above: Performed By: #### C BC ####[facility] Apdekccsyu5317 [place] [address]Dr. Farhat Leal PLT 187 103/ul Normal 150-450 [facility] Comment on above: Performed By: #### C BC ####[facility] Watxogitzn6540 [place] [address]Dr. Farhat Leal RBC 3.69 106/ul Critically low 4.70-6.10 [facility] Comment on above: Performed By: #### C BC ####[facility] Aazlzmdiba1568 [place] [address]DrSkylar Leal WBC 7.7 103/ul Normal 4.0-11.0 [facility] Comment on above: Performed By: #### C BC ####[facility] Bjwdqqwcqc1115 [place] [address]DrSkylar Leal PROF 14(COMP METB)on 023 Albumin [Mass/Vol] 2.5 g/dL Critically low 3.4-5.0 [facility] Comment on above: Performed By: #### C MP ####[facility] Rtijnfwwsa1623 [place] [address]DrSkylar Leal Albumin/Globulin [Mass ratio] 0.8 {ratio} Normal [facility] Comment on above: Performed By: #### C MP ####[facility] Sxadkevplg2559 [place] [address]DrSkylar Leal ALP [Catalytic activity/Vol] 60 U/L Normal 46-116 [facility] Comment on above: Performed By: #### C MP ####[facility] Ohuzboueqf8272 [place] [address]DrSkylar Leal ALT [Catalytic activity/Vol] 16 U/L Normal 16-63 [facility] Comment on above: Performed By: #### C MP ####[facility] Ipwmxpdawf750[address] [place], [place] [address]DrSkylar Leal Anion gap [Moles/Vol] 9.1 mmol/L Normal [facility] Comment on above: Performed By: #### C MP ####[facility] Iligayhhfc398326 [address] [place], [place] [address]Dr. Farhat Leal AST [Catalytic activity/Vol] 31 U/L Normal 15-37 [facility] Comment on above: Performed By: #### C MP ####[facility] Violcuuliw1108[address] [place], [place] [address]Dr. Farhat Elvis Bilirubin [Mass/Vol] 0.3 mg/dL Normal 0.2-1.0 [facility] Comment on above: Performed By: #### C MP ####[facility] Urruuhcbob2037[address] [place], [place] [address]Dr. Farhat Elvis Calcium [Mass/Vol] 8.2 mg/dL Critically low 8.5-10.1 Th [facility] Comment on above: Performed By: #### C MP ####[facility] Egcxsdkpzi4997[address] [place], [place] [address]Dr. Madelynlorri Leal Chloride [Moles/Vol] 106 mmol/L Normal 98-107 [facility] Comment on above: Performed By: #### C MP ####[facility] Jchlidtlsl6[address] [place], [place] [address]Dr. Farhat Elvis CO2 [Moles/Vol] 27.0 mmol/L Normal 21.0-32.0 The [facility] Comment on above: Performed By: #### C MP ####[facility] Ybrdqpkfkw6177[address] [place], [place] [address]Dr. Farhat Elvis Creatinine [Mass/Vol] 1.51 mg/dL Critically high 0.70-1.30 [facility] Comment on above: Performed By: #### C MP ####[facility] Wcfqcenpej1580[address] [place], [place] [address]Dr. Farhat Leal EGFR-AF DANISH 55 mL/min/1.73m2 Critically low >=60 The [facility] Comment on above: Performed By: #### C MP ####[facility] Cafzcndilw6107[address] [place], [place] [address]Dr. Farhat Leal EGFR-NON AF DANISH 45 mL/min/1.73m2 Critically low >=60 [facility] Comment on above: Performed By: #### C MP ####[facility] [facility] Fxgwinltgw[address] [place] [address]Dr. Madelynlorri Elvis Globulin (S) [Mass/Vol] 3.2 g/dL Normal [facility] Comment on above: Performed By: #### C MP ####[facility] Gbfqxovtff49[address] [place] [address]Dr. Farhat Leal Glucose [Mass/Vol] 165 mg/dL Critically high 74-106 T [facility] Comment on above: Performed By: #### C MP ####[facility] Qphpmiaazr036[address] [place], [place] [address]Dr. Farhat Leal Potassium [Moles/Vol] 4.1 mmol/L Normal 3.5-5.1 [facility] Comment on above: Performed By: #### C MP ####[facility] Eobkuywjum40[address] [place], [place] [address]Dr. Farhat Leal Protein [Mass/Vol] 5.7 g/dL Critically low 6.4-8.2 Th [facility] Comment on above: Performed By: #### C MP ####[facility] Sfbfpwxwbo840426 [address] [place], [place] [address]Dr. Farhat Leal Sodium [Moles/Vol] 138 mmol/L Normal 136-145 [facility] Comment on above: Performed By: #### C MP ####[facility] Vtjxtdmkwh4301[address] [place], [place] [address]Dr. Farhat Lael Urea nitrogen [Mass/Vol] 51.0 mg/dL Critically high 7.0-18.0 [facility] Comment on above: Performed By: #### C MP ####[facility] Isatuhywtq112026 [address] [place], [place] [address]Dr. Farhat Leal Urea nitrogen/Creatinine [Mass ratio] 33.8 mg/mg Normal [facility] Comment on above: Performed By: #### C MP ####[facility] Afwwauuflj297526 [address] [place], [place] [address]Dr. Farhat Leal FK506 (TACROLIMUS) WHOLE BLO ODon 06-15-2022 Tacrolimus (FK506), Blood 16.4 ng/mL Normal 2.0-20.0 [facility] Comment on above: Result Comment: Trou gh (immediately following transplant) 15.0 . Trough (steady state, 2 weeks or more after transplant): 3.0 - 8.0 . Performed by LC-MS/MS technology. Performed By: #### F K506T ####[facility] Aagiarajhg4148[address] [place], [place] [address]Dr. Farhat Leal PROTIMEon 06-15-2022 INR Coag (PPP) [Relative time] 1.64 {INR} Normal [facility] Comment on above: Performed By: #### P T ####[facility] Xgacoqcnkb700226 [address] [place], [place] [address]Dr. Farhat Leal INR GUIDELINES SEE BELOW Normal [facility] Comment on above: Result Comment: MALINA RED INR: 2.0 - 3.0 CONDITIONS NOT LISTED BELOW 2.5 - 3.5 FOR PROSTHETIC HEART VALVE REPLACEMENT 2.5 - 3.5 RECURRENT THROMBOSIS Performed By: #### P T ####[facility] Cyorhczaho139526 [address] [place], [place] [address]Dr. Farhat Leal PT Coag (PPP) [Time] 16.9 s Critically high 9.0-11.6 [facility] Comment on above: Performed By: #### P T ####[facility] Kvvhsscjwo609726 [address] [place], [place] [address]Dr. Farhat Leal CBC AUTO DIFFon 06-12-2022 BASO # 0.0 103/ul Normal 0.0-0.1 [facility] Comment on above: Performed By: #### C BC ####[facility] Ibhdleywjn085526 [address] [place], [place] [address]DrSkylar Leal Basophils/100 WBC (Bld) 0.4 % Normal 0.2-2.0 [facility] Comment on above: Performed By: #### C BC ####[facility] Qgukcktiug897726 [address] [place], [place] [address]Dr. Farhat Leal EO # 0.4 103/ul Normal 0.0-0.7 [facility] Comment on above: Performed By: #### C BC ####[facility] Bmcpfyoiex37[address] [place] [address]Dr. Farhat Leal Eosinophils/100 WBC (Bld) 5.4 % Normal 0.9-7.0 [facility] Comment on above: Performed By: #### C BC ####[facility] Mxefmdqrrn266526 [address] [place], [place] [address]Dr. Farhat Leal Erythrocyte distribution width (RBC) [Ratio] 14.7 % Normal 11.0-15.0 [facility] Comment on above: Performed By: #### C BC ####[facility] Jssddmxkhh779526 [address] [place], [place] [address]Dr. Farhat Leal Hematocrit (Bld) [Volume fraction] 34.8 % Critically low 42.0-54.0 [facility] Comment on above: Performed By: #### C BC ####[facility] Eekvirnvkw489226 [address] [place], [place] [address]Dr. Farhat Leal Hemoglobin (Bld) [Mass/Vol] 11.7 g/dL Critically low 14.0-18.0 [facility] Comment on above: Performed By: #### C BC ####[facility] Iqptksxwno392526 [address] [place], [place] [address]Dr. Farhat Leal IG # 0.02 10e3/ul Normal 0.00-0.03 [facility] Comment on above: Performed By: #### C BC ####[facility] Bigwypixdf362626 [address] [place], [place] [address]Dr. Farhat Leal IG % 0.3 % Normal 0.0-0.5 [facility] Comment on above: Performed By: #### C BC ####[facility] Vqnpizglsa012226 [address] [place], [place] [address]Dr. Farhat Leal LYMPH # 2.5 103/ul Normal 1.2-3.8 [facility] Comment on above: Performed By: #### C BC ####[facility] Tjhypaqwwj0215[address] [place], [place] [address]Dr. Farhat Leal Lymphocytes/100 WBC (Bld) 36.8 % Normal 20.5-60.0 [facility] Comment on above: Performed By: #### C BC ####[facility] Dibgeozytp38[address] [place] [address]Dr. Farhat Leal MANUAL DIFF REQ NO Normal [facility] Comment on above: Performed By: #### C BC ####[facility] Ifuzusmjou6389 [place] [id number]. Farhat Leal MCH (RBC) [Entitic mass] 30.9 pg Normal 25.9-34.0 [facility] Comment on above: Performed By: #### C BC ####[facility] Bwsjscweje8513 [place] [address]Dr. Farhat Leal MCHC (RBC) [Mass/Vol] 33.6 g/dL Normal 29.9-35.2 [facility] Comment on above: Performed By: #### C BC ####[facility] Wcyfvxghrl999[address] [place], [place] [address]Dr. Farhat Leal MCV (RBC) [Entitic vol] 91.8 fL Normal 80.0-94.0 [facility] Comment on above: Performed By: #### C BC ####[facility] Tlqjylhoot80[address] [place], [place] [address]Dr. Farhat Leal MONO # 0.8 103/ul Normal 0.3-0.8 [facility] Comment on above: Performed By: #### C BC ####[facility] Ejylmysqsr9549 [place] [address]Dr. Farhat Leal Monocytes/100 WBC (Bld) 11.9 % Normal 1.7-12.0 [facility] Comment on above: Performed By: #### C BC ####[facility] Fwozysffnp2337[address] [place], [place] [address]DrSkylar Leal NEUT # 3.1 103/ul Normal 1.4-6.5 The [facility] Comment on above: Performed By: #### C BC ####[facility] Boarwuhxvg1225[address] [place], [place] [address]DrSkylar Leal Neutrophils/100 WBC (Bld) 45.2 % Normal 43.0-75.0 [facility] Comment on above: Performed By: #### C BC ####[facility] Jqsnzamnqa1252 [place] [address]Dr. Farhat Leal Platelet mean volume (Bld) [Entitic vol] 10.5 fL Normal 9.5-13.5 [facility] Comment on above: Performed By: #### C BC ####[facility] Lwzspcdwco8[address] [place] [address]Dr. Farhat Leal PLT 175 103/ul Normal 150-450 [facility] Comment on above: Performed By: #### C BC ####[facility] Zvpeufzhvj5979 [place] [address]Dr. Farhat Leal RBC 3.79 106/ul Critically low 4.70-6.10 [facility] Comment on above: Performed By: #### C BC ####[facility] Pqxllsbdqv8398 [place] [address]Dr. Frahat Leal WBC 6.8 103/ul Normal 4.0-11.0 [facility] Comment on above: Performed By: #### C BC ####[facility] Yhwkxnzafj2942 [place] [address]Dr. Farhat Leal MAGNESIUMon 06-12-2022 Magnesium [Mass/Vol] 1.6 mg/dL Critically low 1.8-2.4 [facility] Comment on above: Performed By: #### C MP, MG, PHOS ####[facility] Urdjhwwtdk3623 [place] [address]Dr. Farhat Leal PHOSPHORUSon 06-12-2022 Phosphate [Mass/Vol] 3.8 mg/dL Normal 2.6-4.7 [facility] Comment on above: Performed By: #### C MP, MG, PHOS ####[facility] Mwglcxwxtd1799 [place] [address]Dr. Farhat Leal PROF 14(COMP METB)on 023 Albumin [Mass/Vol] 2.6 g/dL Critically low 3.4-5.0 [facility] Comment on above: Performed By: #### C MP, MG, PHOS ####[facility] Hipkgmunvs3992 [place] [address]Dr. Farhat Leal Albumin/Globulin [Mass ratio] 0.8 {ratio} Normal [facility] Comment on above: Performed By: #### C MP, MG, PHOS ####[facility] Awrranhitp2737 [place] [address]Dr. Farhat Elvis ALP [Catalytic activity/Vol] 64 U/L Normal 46-116 [facility] Comment on above: Performed By: #### C MP, MG, PHOS ####[facility] Rsugfvradr5291 [place] [address]Dr. Farhat Elvis ALT [Catalytic activity/Vol] 18 U/L Normal 16-63 [facility] Comment on above: Performed By: #### C MP, MG, PHOS ####[facility] Ylibsyjlzk2160 [place] [address]Dr. Farhat Leal Anion gap [Moles/Vol] 12.9 mmol/L Normal [facility] Comment on above: Performed By: #### C MP, MG, PHOS ####[facility] Piuyxdtimv528626 [address] [place], [place] [address]Dr. Madelynlorri Leal AST [Catalytic activity/Vol] 18 U/L Normal 15-37 [facility] Comment on above: Performed By: #### C MP, MG, PHOS ####[facility] Ayykcfvmdy881326 [address] [place], [place] [address]Dr. Farhat Leal Bilirubin [Mass/Vol] 0.4 mg/dL Normal 0.2-1.0 [facility] Comment on above: Performed By: #### C MP, MG, PHOS ####[facility] Xayldyazld4195 [place] [address]Dr. Farhat Leal Calcium [Mass/Vol] 8.7 mg/dL Normal 8.5-10.1 [facility] Comment on above: Performed By: #### C MP, MG, PHOS ####[facility] Lhftbulfzz3296 [place] [address]Dr. Farhat Leal Chloride [Moles/Vol] 105 mmol/L Normal 98-107 [facility] Comment on above: Performed By: #### C MP, MG, PHOS ####[facility] Dttsomczcm1720 [place] [address]Dr. Farhat Leal CO2 [Moles/Vol] 27.9 mmol/L Normal 21.0-32.0 The [facility] Comment on above: Performed By: #### C MP, MG, PHOS ####[facility] Otckfsidnd451026 [address] [place], [place] [address]Dr. Farhat Leal Creatinine [Mass/Vol] 1.53 mg/dL Critically high 0.70-1.30 [facility] Comment on above: Performed By: #### C MP, MG, PHOS ####[facility] Mecmbnlypw331226 [address] [place], [place] [address]Dr. Farhat Leal EGFR-AF DANISH 54 mL/min/1.73m2 Critically low >=60 [facility] Comment on above: Performed By: #### C MP, MG, PHOS ####[facility] Twuerdyjkn431[address] [place], [place] [address]Dr. Farhat Leal EGFR-NON AF DANISH 44 mL/min/1.73m2 Critically low >=60 The [facility] Comment on above: Performed By: #### C MP, MG, PHOS ####[facility] Jlscsnlkjg598326 [address] [place], [place] [address]Dr. Farhat Leal Globulin (S) [Mass/Vol] 3.4 g/dL Normal [facility] Comment on above: Performed By: #### C MP, MG, PHOS ####[facility] Qftfupnrnz0678 [place] [address]Dr. Farhat Leal Glucose [Mass/Vol] 179 mg/dL Critically high 74-106 T [facility] Comment on above: Performed By: #### C MP, MG, PHOS ####[facility] Qgbmbagkky8093 [place] [address]Dr. Farhat Leal Potassium [Moles/Vol] 3.8 mmol/L Normal 3.5-5.1 [facility] Comment on above: Performed By: #### C MP, MG, PHOS ####[facility] Dfyghciuln0556 [place] [address]Dr. Farhat Leal Protein [Mass/Vol] 6.0 g/dL Critically low 6.4-8.2 Th [facility] Comment on above: Performed By: #### C MP, MG, PHOS ####[facility] Jbuutpqzvx4014 [place] [address]Dr. Farhat Leal Sodium [Moles/Vol] 142 mmol/L Normal 136-145 [facility] Comment on above: Performed By: #### C MP, MG, PHOS ####[facility] Xlgxzuwpbv223126 [address] [place], [place] [address]Dr. Farhat Leal Urea nitrogen [Mass/Vol] 56.0 mg/dL Critically high 7.0-18.0 [facility] Comment on above: Performed By: #### C MP, MG, PHOS ####[facility] Luotwnwgjs461226 [address] [place], [place] [address]Dr. Farhat Leal Urea nitrogen/Creatinine [Mass ratio] 36.6 mg/mg Normal [facility] Comment on above: Performed By: #### C MP, MG, PHOS ####[facility] Foomjskame451326 [address] [place], [place] [address]Dr. Farhat Leal FK506 (TACROLIMUS) WHOLE BLO ODon 06-08-2022 Tacrolimus (FK506), Blood 13.2 ng/mL Normal 2.0-20.0 [facility] Comment on above: Result Comment: Trou gh (immediately following transplant) 15.0 . Trough (steady state, 2 weeks or more after transplant): 3.0 - 8.0 . Performed by LC-MS/MS technology. Performed By: #### F K506T ####[facility] Osvkuyubzj6710[address] [place], [place] [address]Dr. Farhat Leal CBC AUTO DIFFon 06-05-2022 BASO # 0.1 103/ul Normal 0.0-0.1 [facility] Comment on above: Performed By: #### C BC ####[facility] Fmkenbtccb454026 [address] [place], [place] [address]Dr. Farhat Leal Basophils/100 WBC (Bld) 0.8 % Normal 0.2-2.0 The [facility] Comment on above: Performed By: #### C BC ####[facility] Zhczcfwccy416526 [address] [place], [place] [address]DrSkylar Leal EO # 0.3 103/ul Normal 0.0-0.7 [facility] Comment on above: Performed By: #### C BC ####[facility] Oczvmchabv106426 [address] [place], [place] [address]DrSkylar Leal Eosinophils/100 WBC (Bld) 4.7 % Normal 0.9-7.0 [facility] Comment on above: Performed By: #### C BC ####[facility] Vslzqiusag919226 [address] [place], [place] [address]Dr. Farhat Leal Erythrocyte distribution width (RBC) [Ratio] 15.1 % Critically high 11.0-15.0 [facility] Comment on above: Performed By: #### C BC ####[facility] Asizanjrbh274326 [address] [place], [place] [address]Dr. Farhat Leal Hematocrit (Bld) [Volume fraction] 35.5 % Critically low 42.0-54.0 [facility] Comment on above: Performed By: #### C BC ####[facility] Tfaokmomkr861426 [address] [place], [place] [address]DrSkylar Leal Hemoglobin (Bld) [Mass/Vol] 11.7 g/dL Critically low 14.0-18.0 [facility] Comment on above: Performed By: #### C BC ####[facility] Zqmygprcav5345[address] [place], [place] [address]DrkSylar Leal IG # 0.01 10e3/ul Normal 0.00-0.03 [facility] Comment on above: Performed By: #### C BC ####[facility] Xqkavesjii981126 [address] [place], [place] [address]DrSkylar Leal IG % 0.2 % Normal 0.0-0.5 [facility] Comment on above: Performed By: #### C BC ####[facility] Hwkeglqwyw050726 [address] [place], [place] [address]DrSkylar Leal LYMPH # 2.1 103/ul Normal 1.2-3.8 [facility] Comment on above: Performed By: #### C BC ####[facility] Fsiapotazf9965 [place] [id number] Leal Lymphocytes/100 WBC (Bld) 34.5 % Normal 20.5-60.0 [facility] Comment on above: Performed By: #### C BC ####[facility] Vbqeyrktfk2319 [place] [address]DrSkylar Leal MANUAL DIFF REQ NO Normal [facility] Comment on above: Performed By: #### C BC ####[facility] Eqvkcokeas3104 [place] [address]DrSkylar Leal MCH (RBC) [Entitic mass] 30.6 pg Normal 25.9-34.0 [facility] Comment on above: Performed By: #### C BC ####[facility] Hyuugcixtz618926 [address] [place], [place] [address]DrSkylar Leal MCHC (RBC) [Mass/Vol] 33.0 g/dL Normal 29.9-35.2 The [facility] Comment on above: Performed By: #### C BC ####[facility] Jzzmdgzeyf5058[address] [place], [place] [address]DrSkylar Leal MCV (RBC) [Entitic vol] 92.9 fL Normal 80.0-94.0 The [facility] Comment on above: Performed By: #### C BC ####[facility] Eatczcvmyw145126 [address] [place], [place] [address]DrSkylar Leal MONO # 0.7 103/ul Normal 0.3-0.8 The [facility] Comment on above: Performed By: #### C BC ####[facility] Hetetxjjlw139226 [address] [place], [place] [address]DrSkylar Leal Monocytes/100 WBC (Bld) 11.4 % Normal 1.7-12.0 The [facility] Comment on above: Performed By: #### C BC ####[facility] Sphcwmyvgw8108[address] [place], [place] [address]DrSkylar Leal NEUT # 2.9 103/ul Normal 1.4-6.5 [facility] Comment on above: Performed By: #### C BC ####[facility] Vhtaddhogc0477 [place] [address]Dr. Farhat Leal Neutrophils/100 WBC (Bld) 48.4 % Normal 43.0-75.0 [facility] Comment on above: Performed By: #### C BC ####[facility] Jzygluumwm095626 [address] [place], [place] [address]Dr. Farhat Leal Platelet mean volume (Bld) [Entitic vol] 10.7 fL Normal 9.5-13.5 [facility] Comment on above: Performed By: #### C BC ####[facility] Gmdfdqgovj895[address] [place], [place] [address]Dr. Farhat Leal PLT 185 103/ul Normal 150-450 [facility] Comment on above: Performed By: #### C BC ####[facility] Mfnobvuxbm867626 [address] [place], [place] [address]Dr. Farhat Leal RBC 3.82 106/ul Critically low 4.70-6.10 The [facility] Comment on above: Performed By: #### C BC ####[facility] Vbuexvilww546526 [address] [place], [place] [address]Dr. Farhat Leal WBC 6.0 103/ul Normal 4.0-11.0 The [facility] Comment on above: Performed By: #### C BC ####[facility] Mryljnuvyz9826[address] [place], [place] [address]Dr. Farhat Leal MAGNESIUMon 06-05-2022 Magnesium [Mass/Vol] 1.9 mg/dL Normal 1.8-2.4 The [facility] Comment on above: Performed By: #### P HOS, MG ####[facility] Oyvcschibh3301[address] [place], [place] [address]Dr. Farhat Leal PHOSPHORUSon 06-05-2022 Phosphate [Mass/Vol] 4.4 mg/dL Normal 2.6-4.7 [facility] Comment on above: Performed By: #### P HOS, MG ####[facility] Kcbmhfttaw5794 [place] [address]Dr. Farhat Leal PROTIMEon 06-05-2022 INR Coag (PPP) [Relative time] 2.16 {INR} Normal [facility] Comment on above: Performed By: #### P T ####[facility] Jddysnrzck0025[address] [place], [place] [address]Dr. Farhat Leal INR GUIDELINES SEE BELOW Normal [facility] Comment on above: Result Comment: MALINA RED INR: 2.0 - 3.0 CONDITIONS NOT LISTED BELOW 2.5 - 3.5 FOR PROSTHETIC HEART VALVE REPLACEMENT 2.5 - 3.5 RECURRENT THROMBOSIS Performed By: #### P T ####[facility] Jewbhkdycw764126 [address] [place], [place] [address]Dr. Farhat Leal PT Coag (PPP) [Time] 21.9 s Critically high 9.0-11.6 The [facility] Comment on above: Performed By: #### P T ####[facility] Klqkjvldqe969026 [address] [place], [place] [address]Dr. Farhat Leal FK506 (TACROLIMUS) WHOLE BLO ODon 06-01-2022 Tacrolimus (FK506), Blood 26.4 ng/mL Invalid Interpretation Code 2.0-20.0 The [facility] Comment on above: Result Comment: Trou gh (immediately following transplant) 15.0 . Trough (steady state, 2 weeks or more after transplant): 3.0 - 8.0 . Performed by LC-MS/MS technology.Patient drug level exceeds published reference range. Evaluateclinically for signs of potential toxicity. Performed By: #### F K506T ####[facility] Sxwwhlkfsa1739[address] [place], [place] [address]Dr. Farhat Leal CBC AUTO DIFFon 05-29-2022 BASO # 0.0 103/ul Normal 0.0-0.1 [facility] Comment on above: Performed By: #### C BC ####[facility] Soinhdszlg058[address] [place], [place] [address]Dr. Farhat Leal Basophils/100 WBC (Bld) 0.6 % Normal 0.2-2.0 [facility] Comment on above: Performed By: #### C BC ####[facility] Iverhxqdat5469 [place] [id number]. Farhat Leal EO # 0.3 103/ul Normal 0.0-0.7 [facility] Comment on above: Performed By: #### C BC ####[facility] Svkjstxtut4953 [place] [address]Dr. Farhat Leal Eosinophils/100 WBC (Bld) 4.7 % Normal 0.9-7.0 [facility] Comment on above: Performed By: #### C BC ####[facility] Tebsbxtiro9892 [place] [address]Dr. Farhat Leal Erythrocyte distribution width (RBC) [Ratio] 15.3 % Critically high 11.0-15.0 The [facility] Comment on above: Performed By: #### C BC ####[facility] Hxjnyjkiha2154[address] [place], [place] [address]Dr. Farhat Leal Hematocrit (Bld) [Volume fraction] 36.6 % Critically low 42.0-54.0 [facility] Comment on above: Performed By: #### C BC ####[facility] Jzfijmrdiz7[address] [place], [place] [address]Dr. Farhat Leal Hemoglobin (Bld) [Mass/Vol] 12.3 g/dL Critically low 14.0-18.0 [facility] Comment on above: Performed By: #### C BC ####[facility] Mlbzyrjjso5752 [place] [address]Dr. Farhat Leal IG # 0.02 10e3/ul Normal 0.00-0.03 [facility] Comment on above: Performed By: #### C BC ####[facility] Omabqnewmt4089 [place] [address]Dr. Farhat Leal IG % 0.3 % Normal 0.0-0.5 [facility] Comment on above: Performed By: #### C BC ####[facility] Nchzgksfff6327[address] [place], [place] [address]Dr. Farhat Leal LYMPH # 2.8 103/ul Normal 1.2-3.8 [facility] Comment on above: Performed By: #### C BC ####[facility] Fevxwvqzxw7254 [place] [id number]. Farhat Elvis Lymphocytes/100 WBC (Bld) 44.4 % Normal 20.5-60.0 [facility] Comment on above: Performed By: #### C BC ####[facility] Bfgbcullvh1696 [place] [id number]. Farhat Elvis MANUAL DIFF REQ NO Normal [facility] Comment on above: Performed By: #### C BC ####[facility] Pyhkbojpoe4951 [place] [id number]. Farhat Elvis MCH (RBC) [Entitic mass] 30.4 pg Normal 25.9-34.0 [facility] Comment on above: Performed By: #### C BC ####[facility] Mmqmuusyqp7106 [place] [address]Dr. Farhat Elvis MCHC (RBC) [Mass/Vol] 33.6 g/dL Normal 29.9-35.2 [facility] Comment on above: Performed By: #### C BC ####[facility] Fqple[address]lqv[address] [place] [address]Dr. Farhat Elvis MCV (RBC) [Entitic vol] 90.4 fL Normal 80.0-94.0 The [facility] Comment on above: Performed By: #### C BC ####[facility] Ckrxrobvjy[address] [place], [place] [address]Dr. Farhat Leal MONO # 0.7 103/ul Normal 0.3-0.8 The [facility] Comment on above: Performed By: #### C BC ####[facility] Uvdlqoypzg[address] [place] [address]Dr. Madelynlorri Leal Monocytes/100 WBC (Bld) 10.7 % Normal 1.7-12.0 The [facility] Comment on above: Performed By: #### C BC ####[facility] Guxrxc[address]ax[address] [place] [address]Dr. Farhat Leal NEUT # 2.5 103/ul Normal 1.4-6.5 The [facility] Comment on above: Performed By: #### C BC ####[facility] Behfzqdamw77[address] [place] [id number]. Farhat Leal Neutrophils/100 WBC (Bld) 39.3 % Critically low 43.0-75.0 [facility] Comment on above: Performed By: #### C BC ####[facility] Gupsepavri4002 [place] [phone]. Faraht Leal Platelet mean volume (Bld) [Entitic vol] 10.5 fL Normal 9.5-13.5 [facility] Comment on above: Performed By: #### C BC ####[facility] Jjzxppchlo27[address] [place] [phone]. Farhat Leal PLT 190 103/ul Normal 150-450 [facility] Comment on above: Performed By: #### C BC ####[facility] Gszhobeqqz2864 [place] [id number]. Farhat Leal RBC 4.05 106/ul Critically low 4.70-6.10 [facility] Comment on above: Performed By: #### C BC ####[facility] Frhzjjsgeg7233 [place] [phone]. Madelynlorri Elvis WBC 6.4 103/ul Normal 4.0-11.0 [facility] Comment on above: Performed By: #### C BC ####[facility] Qafponahqa6541 [place] [phone]. Farhat Leal PROF 14(COMP METB)on 023 Albumin [Mass/Vol] 2.5 g/dL Critically low 3.4-5.0 [facility] Comment on above: Performed By: #### C MP ####[facility] Layfxtekqp8387 [place] [phone]. Farhat Leal Albumin/Globulin [Mass ratio] 0.8 {ratio} Normal [facility] Comment on above: Performed By: #### C MP ####[facility] Koeavwffwi2404 [place] [phone]. Farhat Elvis ALP [Catalytic activity/Vol] 61 U/L Normal 46-116 [facility] Comment on above: Performed By: #### C MP ####[facility] Dsmckobumi0838 [place] [phone]. Farhat Leal ALT [Catalytic activity/Vol] 16 U/L Normal 16-63 [facility] Comment on above: Performed By: #### C MP ####[facility] Nyapawiyqs65[address] [place] [address]Dr. Farhat Leal Anion gap [Moles/Vol] 12.3 mmol/L Normal Th e [facility] Comment on above: Performed By: #### C MP ####[facility] Vlgnqpzssh4984 [place] [address]Dr. Farhat Leal AST [Catalytic activity/Vol] 18 U/L Normal 15-37 [facility] Comment on above: Performed By: #### C MP ####[facility] Oehfkrjjjn9[address] [place], [place] [address]Dr. Farhat Leal Bilirubin [Mass/Vol] 0.5 mg/dL Normal 0.2-1.0 The [facility] Comment on above: Performed By: #### C MP ####[facility] Aoampkbdgg4[address] [place], [place] [address]Dr. Farhat Leal Calcium [Mass/Vol] 8.6 mg/dL Normal 8.5-10.1 [facility] Comment on above: Performed By: #### C MP ####[facility] Mjqqwqplfj[address] [place], [place] [address]Dr. Farhat Leal Chloride [Moles/Vol] 105 mmol/L Normal 98-107 The [facility] Comment on above: Performed By: #### C MP ####[facility] Efxtsjckly8375 [place] [address]Dr. Farhat Leal CO2 [Moles/Vol] 28.6 mmol/L Normal 21.0-32.0 The [facility] Comment on above: Performed By: #### C MP ####[facility] Jzabfnqqow50[address] [place], [place] [address]Dr. Farhat Leal Creatinine [Mass/Vol] 1.47 mg/dL Critically high 0.70-1.30 [facility] Comment on above: Performed By: #### C MP ####[facility] Kzprkevdah1629 [place] [phone]. Farhat Leal EGFR-AF DANISH 56 mL/min/1.73m2 Critically low >=60 [facility] Comment on above: Performed By: #### C MP ####[facility] Zwtczhxnbp5949 [place] [address]Dr. Frahat Leal EGFR-NON AF DANISH 46 mL/min/1.73m2 Critically low >=60 [facility] Comment on above: Performed By: #### C MP ####[facility] Fgstdedpgl3081 [place] [address]Dr. Farhat Leal Globulin (S) [Mass/Vol] 3.3 g/dL Normal [facility] Comment on above: Performed By: #### C MP ####[facility] Zrfyepkikr5385 [place] [address]Dr. Farhat Leal Glucose [Mass/Vol] 164 mg/dL Critically high 74-106 [facility] Comment on above: Performed By: #### C MP ####[facility] Jtvnhszqib4228 [place] [address]Dr. Farhat Leal Potassium [Moles/Vol] 3.9 mmol/L Normal 3.5-5.1 [facility] Comment on above: Performed By: #### C MP ####[facility] Hzabgznrty3439 [place] [address]Dr. Farhat Leal Protein [Mass/Vol] 5.8 g/dL Critically low 6.4-8.2 [facility] Comment on above: Performed By: #### C MP ####[facility] Nrbhziejhx1281 [place] [address]Dr. Farhat Leal Sodium [Moles/Vol] 142 mmol/L Normal 136-145 [facility] Comment on above: Performed By: #### C MP ####[facility] Kpusykbwok9066 [place] [address]Dr. Farhat Leal Urea nitrogen [Mass/Vol] 53.0 mg/dL Critically high 7.0-18.0 [facility] Comment on above: Performed By: #### C MP ####[facility] Debnyqivck5167 [place] [address]Dr. Farhat Leal Urea nitrogen/Creatinine [Mass ratio] 36.1 mg/mg Normal The [facility] Comment on above: Performed By: #### C MP ####[facility] Ovlhfkpmnq68[address] [place], [place] [address]Dr. Farhat Leal PROTIMEon 05-29-2022 INR Coag (PPP) [Relative time] 2.41 {INR} Normal The [facility] Comment on above: Performed By: #### P T ####[facility] Goyyigzroy63[address] [place], [place] [address]Dr. Farhat Leal INR GUIDELINES SEE BELOW Normal [facility] Comment on above: Result Comment: MALINA RED INR: 2.0 - 3.0 CONDITIONS NOT LISTED BELOW 2.5 - 3.5 FOR PROSTHETIC HEART VALVE REPLACEMENT 2.5 - 3.5 RECURRENT THROMBOSIS Performed By: #### P T ####[facility] Zpzzmhnmdh8[address] [place], [place] [address]Dr. Farhat Leal PT Coag (PPP) [Time] 24.3 s Critically high 9.0-11.6 The [facility] Comment on above: Performed By: #### P T ####[facility] Vyijoqhqug517[address] [place], [place] [address]DrSkylar Leal FK506 (TACROLIMUS) WHOLE BLO ODon 05-25-2022 Tacrolimus (FK506), Blood 5.1 ng/mL Normal 2.0-20.0 [facility] Comment on above: Result Comment: Trou gh (immediately following transplant) 15.0 . Trough (steady state, 2 weeks or more after transplant): 3.0 - 8.0 . Performed by LC-MS/MS technology. Performed By: #### F K506T ####[facility] Ijyezyfnda037[address] [place], [place] [address]DrSkylar Leal CBC AUTO DIFFon 05-22-2022 BASO # 0.0 103/ul Normal 0.0-0.1 [facility] Comment on above: Performed By: #### C BC ####[facility] Qscphsimcx092126 [address] [place], [place] [address]DrSkylar Leal Basophils/100 WBC (Bld) 0.5 % Normal 0.2-2.0 [facility] Comment on above: Performed By: #### C BC ####[facility] Nzotlwcbxg49[address] [place], [place] [address]Dr. Farhat Leal EO # 0.2 103/ul Normal 0.0-0.7 [facility] Comment on above: Performed By: #### C BC ####[facility] Pnyxvtbcko5680[address] [place], [place] [address]Dr. Farhat Elvis Eosinophils/100 WBC (Bld) 4.0 % Normal 0.9-7.0 [facility] Comment on above: Performed By: #### C BC ####[facility] Yprdfommun130726 [address] [place], [place] [address]Dr. Farhat Leal Erythrocyte distribution width (RBC) [Ratio] 15.5 % Critically high 11.0-15.0 [facility] Comment on above: Performed By: #### C BC ####[facility] Uonqmtryli9114[address] [place], [place] [address]Dr. Farhat Leal Hematocrit (Bld) [Volume fraction] 34.1 % Critically low 42.0-54.0 [facility] Comment on above: Performed By: #### C BC ####[facility] Qgusaajslt8810[address] [place], [place] [address]Dr. Farhat Leal Hemoglobin (Bld) [Mass/Vol] 11.3 g/dL Critically low 14.0-18.0 [facility] Comment on above: Performed By: #### C BC ####[facility] Onnuiybpgt066526 [address] [place], [place] [address]Dr. Madelynlorri Elvis IG # 0.03 10e3/ul Normal 0.00-0.03 [facility] Comment on above: Performed By: #### C BC ####[facility] Qzqebbwjtt000426 [address] [place], [place] [address]Dr. Farhat Elvis IG % 0.5 % Normal 0.0-0.5 [facility] Comment on above: Performed By: #### C BC ####[facility] Bjlxfkbzjs39032[address] [place], [place] [address]Dr. Farhat Leal LYMPH # 2.1 103/ul Normal 1.2-3.8 [facility] Comment on above: Performed By: #### C BC ####[facility] Seyolsfqeo1189 [place] [address]Dr. Farhat Leal Lymphocytes/100 WBC (Bld) 34.6 % Normal 20.5-60.0 [facility] Comment on above: Performed By: #### C BC ####[facility] Twnrbnftvz4646 [place] [address]Dr. Farhat Leal MANUAL DIFF REQ NO Normal The [facility] Comment on above: Performed By: #### C BC ####[facility] Hfcpgycxeb2233 [place] [address]Dr. Farhat Leal MCH (RBC) [Entitic mass] 30.3 pg Normal 25.9-34.0 [facility] Comment on above: Performed By: #### C BC ####[facility] Idkbhwlafh06112[address] [place], [place] [address]Dr. Farhat Leal MCHC (RBC) [Mass/Vol] 33.1 g/dL Normal 29.9-35.2 [facility] Comment on above: Performed By: #### C BC ####[facility] Bdetikfsqc786[address] [place], [place] [address]Dr. Farhat Leal MCV (RBC) [Entitic vol] 91.4 fL Normal 80.0-94.0 [facility] Comment on above: Performed By: #### C BC ####[facility] Enjnqtprvs7[address] [place], [place] [address]Dr. Farhat Leal MONO # 0.7 103/ul Normal 0.3-0.8 [facility] Comment on above: Performed By: #### C BC ####[facility] Pzkyjsbjoq8810[address] [place], [place] [address]Dr. Farhat Leal Monocytes/100 WBC (Bld) 11.6 % Normal 1.7-12.0 [facility] Comment on above: Performed By: #### C BC ####[facility] Wqpvklhpma5316[address] [place], [place] [address]Dr. Farhat Leal NEUT # 2.9 103/ul Normal 1.4-6.5 [facility] Comment on above: Performed By: #### C BC ####[facility] Ljekucupah1437 [place] [address]DrSkylar Leal Neutrophils/100 WBC (Bld) 48.8 % Normal 43.0-75.0 [facility] Comment on above: Performed By: #### C BC ####[facility] Zgmwitttzb8713 [place] [address]DrSkylar Leal Platelet mean volume (Bld) [Entitic vol] 10.9 fL Normal 9.5-13.5 [facility] Comment on above: Performed By: #### C BC ####[facility] Peaptfyqtb464[address] [place], [place] [address]DrSkylar Leal PLT 186 103/ul Normal 150-450 [facility] Comment on above: Performed By: #### C BC ####[facility] Foffuukptc2667[address] [place], [place] [address]DrSkylar Leal RBC 3.73 106/ul Critically low 4.70-6.10 [facility] Comment on above: Performed By: #### C BC ####[facility] Glzaghngal1166[address] [place], [place] [address]DrSkylar Leal WBC 6.0 103/ul Normal 4.0-11.0 [facility] Comment on above: Performed By: #### C BC ####[facility] Qqgyfrhrtj1069[address] [place], [place] [address]Dr. Farhat Leal PROF 14(COMP METB)on 023 Albumin [Mass/Vol] 2.7 g/dL Critically low 3.4-5.0 Th [facility] Comment on above: Performed By: #### C MP ####[facility] Chgukxusrv4096[address] [place], [place] [address]DrSkylar Leal Albumin/Globulin [Mass ratio] 0.8 {ratio} Normal [facility] Comment on above: Performed By: #### C MP ####[facility] Tihgdmggkv3520[address] [place], [place] [address]Dr. Farhat Elvis ALP [Catalytic activity/Vol] 60 U/L Normal 46-116 [facility] Comment on above: Performed By: #### C MP ####[facility] Mazszpbdgp5358[address] [place], [place] [address]Dr. Farhat Elvis ALT [Catalytic activity/Vol] 17 U/L Normal 16-63 [facility] Comment on above: Performed By: #### C MP ####[facility] Mckuwladak3755[address] [place], [place] [address]Dr. Farhat Elvis Anion gap [Moles/Vol] 9.6 mmol/L Normal [facility] Comment on above: Performed By: #### C MP ####[facility] Yknpwtndor385726 [address] [place], [place] [address]Dr. Farhat Elvis AST [Catalytic activity/Vol] 14 U/L Critically low 15-37 [facility] Comment on above: Performed By: #### C MP ####[facility] Mrhtcxlfpi869326 [address] [place], [place] [address]Dr. Farhat Elvis Bilirubin [Mass/Vol] 0.5 mg/dL Normal 0.2-1.0 [facility] Comment on above: Performed By: #### C MP ####[facility] Ynvlbakdbj600[address] [place], [place] [address]Dr. Madelynlorri Leal Calcium [Mass/Vol] 8.4 mg/dL Critically low 8.5-10.1 Th [facility] Comment on above: Performed By: #### C MP ####[facility] Mgnrmjnwot3934[address] [place], [place] [address]Dr. Madelynlorri Leal Chloride [Moles/Vol] 104 mmol/L Normal 98-107 [facility] Comment on above: Performed By: #### C MP ####[facility] Rzckcunaqr731226 [address] [place], [place] [address]Dr. Farhat Leal CO2 [Moles/Vol] 27.2 mmol/L Normal 21.0-32.0 The [facility] Comment on above: Performed By: #### C MP ####[facility] Dchqdpptrm767[address] [place], [place] [address]Dr. Farhat Leal Creatinine [Mass/Vol] 1.24 mg/dL Normal 0.70-1.30 [facility] Comment on above: Performed By: #### C MP ####[facility] Dpfudwdkxo2130 [place] [address]Dr. Farhat Elvis EGFR-AF DANISH >60 Normal >=60 [facility] Comment on above: Performed By: #### C MP ####[facility] Xvtlqqihdi5265 [place] [address]Dr. Farhat Elvis EGFR-NON AF DANISH 57 mL/min/1.73m2 Critically low >=60 [facility] Comment on above: Performed By: #### C MP ####[facility] Gbvzxkrycr2318 [place] [address]Dr. Farhat Leal Globulin (S) [Mass/Vol] 3.3 g/dL Normal [facility] Comment on above: Performed By: #### C MP ####[facility] Mdfbcvntgr963026 [address] [place], [place] [address]Dr. Farhat Leal Glucose [Mass/Vol] 275 mg/dL Critically high 74-106 [facility] Comment on above: Performed By: #### C MP ####[facility] Kwcqppbaac285[address] [place], [place] [address]Dr. Farhat Leal Potassium [Moles/Vol] 3.8 mmol/L Normal 3.5-5.1 [facility] Comment on above: Performed By: #### C MP ####[facility] Jqfqwzgtjq4238[address] [place], [place] [address]Dr. Farhat Leal Protein [Mass/Vol] 6.0 g/dL Critically low 6.4-8.2 Th [facility] Comment on above: Performed By: #### C MP ####[facility] Nyfvroqchz8055[address] [place], [place] [address]Dr. Farhat Leal Sodium [Moles/Vol] 137 mmol/L Normal 136-145 [facility] Comment on above: Performed By: #### C MP ####[facility] Dnohhsiffr009[address] [place], [place] [address]Dr. Farhat Leal Urea nitrogen [Mass/Vol] 54.0 mg/dL Critically high 7.0-18.0 [facility] Comment on above: Performed By: #### C MP ####[facility] Jfnlmprdon0427[address] [place], [place] [address]DrSkylar Leal Urea nitrogen/Creatinine [Mass ratio] 43.5 mg/mg Normal [facility] Comment on above: Performed By: #### C MP ####[facility] Doguzhjmdt596[address] [place], [place] [address]Dr. Farhat Leal PROTIMEon 05-22-2022 INR Coag (PPP) [Relative time] 2.27 {INR} Normal [facility] Comment on above: Performed By: #### P T ####[facility] W[address]ottvzc[address] [place] [address]. Farhat Leal INR GUIDELINES SEE BELOW Normal [facility] Comment on above: Result Comment: MALINA RED INR: 2.0 - 3.0 CONDITIONS NOT LISTED BELOW 2.5 - 3.5 FOR PROSTHETIC HEART VALVE REPLACEMENT 2.5 - 3.5 RECURRENT THROMBOSIS Performed By: #### P T ####[facility] Mgghtxuwba37112[address] [place], [place] [address]Dr. Farhat Leal PT Coag (PPP) [Time] 23.0 s Critically high 9.0-11.6 [facility] Comment on above: Performed By: #### P T ####[facility] Drskimlzoe385926 [address] [place], [place] [address]Dr. Farhat Leal FK506 (TACROLIMUS) WHOLE BLO ODon 05-19-2022 Tacrolimus (FK506), Blood 7.8 ng/mL Normal 2.0-20.0 [facility] Comment on above: Result Comment: Trou gh (immediately following transplant) 15.0 . Trough (steady state, 2 weeks or more after transplant): 3.0 - 8.0 . Performed by LC-MS/MS technology. Performed By: #### F K506T ####[facility] Mpiwscgfsk7566[address] [place], [place] [address]DrSkylar Leal CBC AUTO DIFFon 05-15-2022 BASO # 0.0 103/ul Normal 0.0-0.1 [facility] Comment on above: Performed By: #### C BC ####[facility] Brltqsjpmr7580 [place] [id number]. Farhat Leal Basophils/100 WBC (Bld) 0.4 % Normal 0.2-2.0 [facility] Comment on above: Performed By: #### C BC ####[facility] Ubmbqayrrc6647 [place] [address]Dr. Farhat Leal EO # 0.2 103/ul Normal 0.0-0.7 [facility] Comment on above: Performed By: #### C BC ####[facility] Hwkwltwexa3614[address] [place], [place] [address]Dr. Farhat Leal Eosinophils/100 WBC (Bld) 3.0 % Normal 0.9-7.0 [facility] Comment on above: Performed By: #### C BC ####[facility] Uzicpfmqlq6078[address] [place], [place] [address]Dr. Farhat Leal Erythrocyte distribution width (RBC) [Ratio] 15.7 % Critically high 11.0-15.0 [facility] Comment on above: Performed By: #### C BC ####[facility] Vpvtolovvx1435[address] [place], [place] [address]Dr. Farhat Leal Hematocrit (Bld) [Volume fraction] 36.8 % Critically low 42.0-54.0 [facility] Comment on above: Performed By: #### C BC ####[facility] Rtozbeizzq4775[address] [place], [place] [address]Dr. Farhat Leal Hemoglobin (Bld) [Mass/Vol] 12.4 g/dL Critically low 14.0-18.0 [facility] Comment on above: Performed By: #### C BC ####[facility] Tdwxwetmrr422[address] [place], [place] [address]Dr. Farhat Leal IG # 0.01 10e3/ul Normal 0.00-0.03 [facility] Comment on above: Performed By: #### C BC ####[facility] Wzwunkxqif[address] [place], [place] [address]Dr. Farhat Leal IG % 0.1 % Normal 0.0-0.5 [facility] Comment on above: Performed By: #### C BC ####[facility] Ljndxsicbj9128 [place] [address]Dr. Farhat Leal LYMPH # 2.4 103/ul Normal 1.2-3.8 [facility] Comment on above: Performed By: #### C BC ####[facility] Bedmhrkazb01[address] [place] [address]Dr. Farhat Leal Lymphocytes/100 WBC (Bld) 35.6 % Normal 20.5-60.0 [facility] Comment on above: Performed By: #### C BC ####[facility] Uldqjyujdr4361 [place] [address]Dr. Farhat Leal MANUAL DIFF REQ NO Normal [facility] Comment on above: Performed By: #### C BC ####[facility] Gzjwlqxlfm1148 [place] [phone]. Farhat Leal MCH (RBC) [Entitic mass] 30.1 pg Normal 25.9-34.0 [facility] Comment on above: Performed By: #### C BC ####[facility] Ozhfjpgesf2813 [place] [address]Dr. Farhat Leal MCHC (RBC) [Mass/Vol] 33.7 g/dL Normal 29.9-35.2 [facility] Comment on above: Performed By: #### C BC ####[facility] Yntzzaoaao2433 [place] [address]Dr. Farhat Leal MCV (RBC) [Entitic vol] 89.3 fL Normal 80.0-94.0 [facility] Comment on above: Performed By: #### C BC ####[facility] Dbelfstaqs0798 [place] [address]Dr. Farhat Leal MONO # 0.7 103/ul Normal 0.3-0.8 [facility] Comment on above: Performed By: #### C BC ####[facility] Rqsgjxfwgy3836 [place] [address]Dr. Farhat Leal Monocytes/100 WBC (Bld) 10.8 % Normal 1.7-12.0 [facility] Comment on above: Performed By: #### C BC ####[facility] Wypkylzdvi9284 [place] [address]Dr. Farhat Leal NEUT # 3.4 103/ul Normal 1.4-6.5 [facility] Comment on above: Performed By: #### C BC ####[facility] Esdihbkyzf9153 [place] [address]Dr. Farhat Leal Neutrophils/100 WBC (Bld) 50.1 % Normal 43.0-75.0 [facility] Comment on above: Performed By: #### C BC ####[facility] Jlpeejpyrw8644 [place] [address]Dr. Farhat Leal Platelet mean volume (Bld) [Entitic vol] 10.2 fL Normal 9.5-13.5 [facility] Comment on above: Performed By: #### C BC ####[facility] Mecnsoqbor6531 [place] [address]Dr. Farhat Leal PLT 190 103/ul Normal 150-450 [facility] Comment on above: Performed By: #### C BC ####[facility] Rzkakrovaf4467 [place] [address]Dr. Farhat Leal RBC 4.12 106/ul Critically low 4.70-6.10 [facility] Comment on above: Performed By: #### C BC ####[facility] Sbplzrfiin3724 [place] [address]Dr. Farhat Leal WBC 6.8 103/ul Normal 4.0-11.0 [facility] Comment on above: Performed By: #### C BC ####[facility] Eoshlbhaza8337 [place] [id number] Leal PROF 14(COMP METB)on 023 Albumin [Mass/Vol] 2.8 g/dL Critically low 3.4-5.0 Th [facility] Comment on above: Performed By: #### C MP ####[facility] Snijiejdoj[address] [place] [id number] Leal Albumin/Globulin [Mass ratio] 0.9 {ratio} Normal [facility] Comment on above: Performed By: #### C MP ####[facility] Bcxukmclet6682 [place] [address]Dr. Farhat Leal ALP [Catalytic activity/Vol] 66 U/L Normal 46-116 [facility] Comment on above: Performed By: #### C MP ####[facility] Eisfxdivcs9681 [place] [phone]. Farhat Elvis ALT [Catalytic activity/Vol] 15 U/L Critically low 16-63 [facility] Comment on above: Performed By: #### C MP ####[facility] Sigcvdgalc6188 [place] [address]Dr. Farhat Elvis Anion gap [Moles/Vol] 11.1 mmol/L Normal Th [facility] Comment on above: Performed By: #### C MP ####[facility] Wqafwqnqom6547 [place] [address]Dr. Farhat Elvis AST [Catalytic activity/Vol] 14 U/L Critically low 15-37 [facility] Comment on above: Performed By: #### C MP ####[facility] Rbmgrbfmvm9070 [place] [address]Dr. Farhat Elvis Bilirubin [Mass/Vol] 0.8 mg/dL Normal 0.2-1.0 [facility] Comment on above: Performed By: #### C MP ####[facility] Gvinfnlhcz6807 [place] [address]Dr. Farhat Elvis Calcium [Mass/Vol] 8.9 mg/dL Normal 8.5-10.1 [facility] Comment on above: Performed By: #### C MP ####[facility] Ldpfwrlxwl7670 [place] [address]Dr. Farhat Leal Chloride [Moles/Vol] 101 mmol/L Normal 98-107 [facility] Comment on above: Performed By: #### C MP ####[facility] Otoloiocqn3638 [place] [address]Dr. Farhat Leal CO2 [Moles/Vol] 28.2 mmol/L Normal 21.0-32.0 [facility] Comment on above: Performed By: #### C MP ####[facility] Bwxeqexoyp5008 [place] [id number]. Farhat Leal Creatinine [Mass/Vol] 1.23 mg/dL Normal 0.70-1.30 [facility] Comment on above: Performed By: #### C MP ####[facility] Quyiuryxcy1475 [place] [phone]. Farhat Leal EGFR-AF DANISH >60 Normal >=60 [facility] Comment on above: Performed By: #### C MP ####[facility] Pisawumcfa9022 [place] [phone]. Farhat Leal EGFR-NON AF DANISH 57 mL/min/1.73m2 Critically low >=60 [facility] Comment on above: Performed By: #### C MP ####[facility] Rgwmcksodt1780 [place] [address]Dr. Farhat Leal Globulin (S) [Mass/Vol] 3.2 g/dL Normal [facility] Comment on above: Performed By: #### C MP ####[facility] Kqrtlswzky9175 [place] [address]Dr. Farhat Leal Glucose [Mass/Vol] 333 mg/dL Critically high 74-106 [facility] Comment on above: Performed By: #### C MP ####[facility] Mcxnzkaaco3378 [place] [phone]. Farhat Leal Potassium [Moles/Vol] 4.3 mmol/L Normal 3.5-5.1 [facility] Comment on above: Performed By: #### C MP ####[facility] Xdgtqwcwmz4530 [place] [phone]. Farhat Leal Protein [Mass/Vol] 6.0 g/dL Critically low 6.4-8.2 Th [facility] Comment on above: Performed By: #### C MP ####[facility] Veesiejoqt5429 [place] [phone]. Farhat Leal Sodium [Moles/Vol] 136 mmol/L Normal 136-145 [facility] Comment on above: Performed By: #### C MP ####[facility] Oqhvebdzmf17[address] [place], [place] [address]Dr. Farhat Leal Urea nitrogen [Mass/Vol] 58.0 mg/dL Critically high 7.0-18.0 The [facility] Comment on above: Performed By: #### C MP ####[facility] Ufwcuwdaof92[address] [place], [place] [address]Dr. Farhat Leal Urea nitrogen/Creatinine [Mass ratio] 47.2 mg/mg Normal [facility] Comment on above: Performed By: #### C MP ####[facility] Ihqkgyfwgk[address] [place], [place] [address]Dr. Farhat Leal PROTIMEon 05-13-2022 INR Coag (PPP) [Relative time] 3.51 {INR} Normal [facility] Comment on above: Performed By: #### P T ####[facility] Respyzeuoe9[address] [place], [place] [address]Dr. Farhat Leal INR GUIDELINES SEE BELOW Normal [facility] Comment on above: Result Comment: MALINA RED INR: 2.0 - 3.0 CONDITIONS NOT LISTED BELOW 2.5 - 3.5 FOR PROSTHETIC HEART VALVE REPLACEMENT 2.5 - 3.5 RECURRENT THROMBOSIS Performed By: #### P T ####[facility] Jfrmjeasxq27[address] [place], [place] [address]Dr. Farhat Leal PT Coag (PPP) [Time] 34.7 s Critically high 9.0-11.6 [facility] Comment on above: Performed By: #### P T ####[facility] Louekobhrm3238[address] [place], [place] [address]Dr. Farhat Leal FK506 (TACROLIMUS) WHOLE BLO ODon 05-11-2022 Tacrolimus (FK506), Blood 14.4 ng/mL Normal 2.0-20.0 [facility] Comment on above: Result Comment: Trou gh (immediately following transplant) 15.0 . Trough (steady state, 2 weeks or more after transplant): 3.0 - 8.0 . Performed by LC-MS/MS technology. Performed By: #### F K506T ####[facility] Vekxhvgdzz34[address] [place], [place] [address]DrSkylar Leal CBC AUTO DIFFon 05-08-2022 BASO # 0.0 103/ul Normal 0.0-0.1 [facility] Comment on above: Performed By: #### C BC ####[facility] Zhrgdjlnan0257 [place] [address]Dr. Farhat Leal Basophils/100 WBC (Bld) 0.5 % Normal 0.2-2.0 [facility] Comment on above: Performed By: #### C BC ####[facility] Ehncvfxisc408[address] [place], [place] [address]Dr. Farhat Leal EO # 0.2 103/ul Normal 0.0-0.7 [facility] Comment on above: Performed By: #### C BC ####[facility] Hanhvppvxy3815[address] [place], [place] [address]Dr. Farhat Leal Eosinophils/100 WBC (Bld) 2.9 % Normal 0.9-7.0 [facility] Comment on above: Performed By: #### C BC ####[facility] Bewkfhfpwu4[address] [place], [place] [address]Dr. Farhat Leal Erythrocyte distribution width (RBC) [Ratio] 16.0 % Critically high 11.0-15.0 [facility] Comment on above: Performed By: #### C BC ####[facility] Vsynmgqqty212[address] [place], [place] [address]Dr. Farhat Leal Hematocrit (Bld) [Volume fraction] 35.7 % Critically low 42.0-54.0 [facility] Comment on above: Performed By: #### C BC ####[facility] Bhykeuxahq7[address] [place], [place] [address]Dr. Farhat Leal Hemoglobin (Bld) [Mass/Vol] 11.9 g/dL Critically low 14.0-18.0 [facility] Comment on above: Performed By: #### C BC ####[facility] Mqlspnyroc[address] [place], [place] [address]Dr. Farhat Leal IG # 0.03 10e3/ul Normal 0.00-0.03 [facility] Comment on above: Performed By: #### C BC ####[facility] Efnjophjlw6935 [place] [id number]. Farhat Leal IG % 0.5 % Normal 0.0-0.5 [facility] Comment on above: Performed By: #### C BC ####[facility] Uwbcfqdtku0151 [place] [address]Dr. Farhat Leal LYMPH # 2.4 103/ul Normal 1.2-3.8 [facility] Comment on above: Performed By: #### C BC ####[facility] Ydvaxbqqak3944 [place] [address]Dr. Farhat Elvis Lymphocytes/100 WBC (Bld) 37.8 % Normal 20.5-60.0 [facility] Comment on above: Performed By: #### C BC ####[facility] Dwoaxzxvxi5185 [place] [address]Dr. Farhat Elvis MANUAL DIFF REQ NO Normal The [facility] Comment on above: Performed By: #### C BC ####[facility] Vhqvnlhckp0590 [place] [phone]. Farhat Elvis MCH (RBC) [Entitic mass] 30.4 pg Normal 25.9-34.0 [facility] Comment on above: Performed By: #### C BC ####[facility] Khxtpckhfz2743 [place] [address]Dr. Farhat Leal MCHC (RBC) [Mass/Vol] 33.3 g/dL Normal 29.9-35.2 [facility] Comment on above: Performed By: #### C BC ####[facility] Tiplqafhvf0497 [place] [phone]. Farhat Leal MCV (RBC) [Entitic vol] 91.1 fL Normal 80.0-94.0 [facility] Comment on above: Performed By: #### C BC ####[facility] Qadamflurw[address] [place], [place] [address]Dr. Farhat Elvis MONO # 0.7 103/ul Normal 0.3-0.8 [facility] Comment on above: Performed By: #### C BC ####[facility] Bxkkiqxdsx8483 [place] [address]Dr. Farhat Leal Monocytes/100 WBC (Bld) 11.1 % Normal 1.7-12.0 [facility] Comment on above: Performed By: #### C BC ####[facility] Uamwbjuzfz6674 [place] [address]Dr. Farhat Leal NEUT # 2.9 103/ul Normal 1.4-6.5 [facility] Comment on above: Performed By: #### C BC ####[facility] Uhjakhjbdg7827 [place] [address]Dr. Farhat Leal Neutrophils/100 WBC (Bld) 47.2 % Normal 43.0-75.0 [facility] Comment on above: Performed By: #### C BC ####[facility] Ghkqnsjhvz1429 [place] [address]Dr. Farhat Leal Platelet mean volume (Bld) [Entitic vol] 11.0 fL Normal 9.5-13.5 [facility] Comment on above: Performed By: #### C BC ####[facility] Ayptdzgtch3244 [place] [address]Dr. Farhat Leal PLT 191 103/ul Normal 150-450 [facility] Comment on above: Performed By: #### C BC ####[facility] Fssxxgjiyr2569 [place] [address]Dr. Farhat Leal RBC 3.92 106/ul Critically low 4.70-6.10 The [facility] Comment on above: Performed By: #### C BC ####[facility] Uvzdnzdciw4120 [place] [address]Dr. Farhat Leal WBC 6.2 103/ul Normal 4.0-11.0 [facility] Comment on above: Performed By: #### C BC ####[facility] Viwtcdkbsu9008 [place] [address]Dr. Farhat Leal MAGNESIUMon 05-08-2022 Magnesium [Mass/Vol] 1.9 mg/dL Normal 1.8-2.4 [facility] Comment on above: Performed By: #### P HOS, MG ####[facility] Oshlbjnizu3325 [place] [address]Dr. Farhat Leal PHOSPHORUSon 05-08-2022 Phosphate [Mass/Vol] 4.5 mg/dL Normal 2.6-4.7 [facility] Comment on above: Performed By: #### P HOS, MG ####[facility] Oeeitnpwyo7740 [place] [address]Dr. Farhat Leal PROF 14(COMP METB)on 023 Albumin [Mass/Vol] 2.9 g/dL Critically low 3.4-5.0 [facility] Comment on above: Performed By: #### C MP ####[facility] Ntejadakfs4[address] [place], [place] [address]Dr. Farhat Leal Albumin/Globulin [Mass ratio] 0.9 {ratio} Normal [facility] Comment on above: Performed By: #### C MP ####[facility] Sjkobgdrne20[address] [place], [place] [address]Dr. Farhat Leal ALP [Catalytic activity/Vol] 70 U/L Normal 46-116 [facility] Comment on above: Performed By: #### C MP ####[facility] Vfrwsvuzcs[address] [place], [place] [address]Dr. Farhat Leal ALT [Catalytic activity/Vol] 13 U/L Critically low 16-63 [facility] Comment on above: Performed By: #### C MP ####[facility] Kdcrkaqant97[address] [place], [place] [address]Dr. Farhat Leal Anion gap [Moles/Vol] 14.6 mmol/L Normal [facility] Comment on above: Performed By: #### C MP ####[facility] Xbouubbwlr64[address] [place], [place] [address]Dr. Farhat Leal AST [Catalytic activity/Vol] 17 U/L Normal 15-37 [facility] Comment on above: Performed By: #### C MP ####[facility] Bcwnhqkrqu020[address] [place], [place] [address]Dr. Farhat Leal Bilirubin [Mass/Vol] 0.8 mg/dL Normal 0.2-1.0 [facility] Comment on above: Performed By: #### C MP ####[facility] Dzvuyjqskh6272 [place] [address]Dr. Farhat Leal Calcium [Mass/Vol] 8.9 mg/dL Normal 8.5-10.1 [facility] Comment on above: Performed By: #### C MP ####[facility] Hbzezenzkk2483 [place] [address]Dr. Farhat Leal Chloride [Moles/Vol] 102 mmol/L Normal 98-107 [facility] Comment on above: Performed By: #### C MP ####[facility] Okocbyimih6927 [place] [address]Dr. Farhat Leal CO2 [Moles/Vol] 22.9 mmol/L Normal 21.0-32.0 [facility] Comment on above: Performed By: #### C MP ####[facility] Mvejdwfrml194[address] [place], [place] [address]Dr. Farhat Leal Creatinine [Mass/Vol] 1.20 mg/dL Normal 0.70-1.30 [facility] Comment on above: Performed By: #### C MP ####[facility] Xqlrodxaat6166 [place] [address]Dr. Farhat Leal EGFR-AF DANISH >60 Normal >=60 [facility] Comment on above: Performed By: #### C MP ####[facility] Uqomipkgnv384[address] [place], [place] [address]Dr. Farhat Elvis EGFR-NON AF DANISH 59 mL/min/1.73m2 Critically low >=60 [facility] Comment on above: Performed By: #### C MP ####[facility] Rxtabqueql1667 [place] [address]Dr. Farhat Leal Globulin (S) [Mass/Vol] 3.1 g/dL Normal [facility] Comment on above: Performed By: #### C MP ####[facility] Sjjckgjilu0044 [place] [address]Dr. Farhat Leal Glucose [Mass/Vol] 447 mg/dL Critically high 74-106 [facility] Comment on above: Performed By: #### C MP ####[facility] Kbozjtbsxy7097 [place] [address]Dr. Farhat Leal Potassium [Moles/Vol] 4.5 mmol/L Normal 3.5-5.1 [facility] Comment on above: Performed By: #### C MP ####[facility] Okehxyfyjv65[address] [place], [place] [address]Dr. Farhat Leal Protein [Mass/Vol] 6.0 g/dL Critically low 6.4-8.2 Th [facility] Comment on above: Performed By: #### C MP ####[facility] Dcityxfwvb927[address] [place], [place] [address]Dr. Farhat Leal Sodium [Moles/Vol] 135 mmol/L Critically low 136-145 Th [facility] Comment on above: Performed By: #### C MP ####[facility] Lojoekaecl5[address] [place], [place] [address]Dr. Farhat Leal Urea nitrogen [Mass/Vol] 52.0 mg/dL Critically high 7.0-18.0 [facility] Comment on above: Performed By: #### C MP ####[facility] Gwtpomcrzl889[address] [place], [place] [address]Dr. Farhat Leal Urea nitrogen/Creatinine [Mass ratio] 43.3 mg/mg Normal [facility] Comment on above: Performed By: #### C MP ####[facility] Yndrxeobyc7105[address] [place], [place] [address]Dr. Farhat Leal PROTIMEon 05-06-2022 INR Coag (PPP) [Relative time] 2.25 {INR} Normal [facility] Comment on above: Performed By: #### P T ####[facility] Kninmghfgi145[address] [place], [place] [address]Dr. Farhat Leal INR GUIDELINES SEE BELOW Normal [facility] Comment on above: Result Comment: MALINA RED INR: 2.0 - 3.0 CONDITIONS NOT LISTED BELOW 2.5 - 3.5 FOR PROSTHETIC HEART VALVE REPLACEMENT 2.5 - 3.5 RECURRENT THROMBOSIS Performed By: #### P T ####[facility] Tvyryfdirr4836[address] [place], [place] [address]Dr. Farhat Leal PT Coag (PPP) [Time] 22.8 s Critically high 9.0-11.6 [facility] Comment on above: Performed By: #### P T ####[facility] Oifhfmsyjw036[address] [place], [place] [address]Dr. Farhat Elvis FK506 (TACROLIMUS) WHOLE BLO ODon 05-04-2022 Tacrolimus (FK506), Blood 10.4 ng/mL Normal 2.0-20.0 [facility] Comment on above: Result Comment: Trou gh (immediately following transplant) 15.0 . Trough (steady state, 2 weeks or more after transplant): 3.0 - 8.0 . Performed by LC-MS/MS technology. Performed By: #### F K506T ####[facility] Qbxipgfztj9308[address] [place], [place] [address]Dr. Farhat Elvis CBC AUTO DIFFon 05-01-2022 BASO # 0.1 103/ul Normal 0.0-0.1 [facility] Comment on above: Performed By: #### C BC ####[facility] Mphzqrqajy3[address] [place], [place] [address]Dr. Farhat Leal Basophils/100 WBC (Bld) 0.7 % Normal 0.2-2.0 [facility] Comment on above: Performed By: #### C BC ####[facility] Eqbryvigxx1724[address] [place], [place] [address]Dr. Farhat Leal EO # 0.2 103/ul Normal 0.0-0.7 [facility] Comment on above: Performed By: #### C BC ####[facility] Fcmklxidkf303[address] [place], [place] [address]Dr. Farhat Leal Eosinophils/100 WBC (Bld) 3.2 % Normal 0.9-7.0 [facility] Comment on above: Performed By: #### C BC ####[facility] Uushnkelss107[address] [place], [place] [address]Dr. Farhat Leal Erythrocyte distribution width (RBC) [Ratio] 16.4 % Critically high 11.0-15.0 [facility] Comment on above: Performed By: #### C BC ####[facility] Lofldjepiv7225 [place] [address]Dr. Farhat Leal Hematocrit (Bld) [Volume fraction] 35.1 % Critically low 42.0-54.0 [facility] Comment on above: Performed By: #### C BC ####[facility] Rqqxhdnyxe5329 [place] [address]Dr. Farhat Leal Hemoglobin (Bld) [Mass/Vol] 11.6 g/dL Critically low 14.0-18.0 [facility] Comment on above: Performed By: #### C BC ####[facility] Hdhrrrcwaf[address] [place], [place] [address]Dr. Madelynlorri Elvis IG # 0.03 10e3/ul Normal 0.00-0.03 [facility] Comment on above: Performed By: #### C BC ####[facility] Ffaxdrsnlq3324[address] [place], [place] [address]Dr. Farhat Leal IG % 0.4 % Normal 0.0-0.5 [facility] Comment on above: Performed By: #### C BC ####[facility] Dqllmigypn[address] [place], [place] [address]Dr. Farhat Leal LYMPH # 2.4 103/ul Normal 1.2-3.8 [facility] Comment on above: Performed By: #### C BC ####[facility] Mbrzweccjg9[address] [place], [place] [address]Dr. Madelynlorri Leal Lymphocytes/100 WBC (Bld) 35.1 % Normal 20.5-60.0 [facility] Comment on above: Performed By: #### C BC ####[facility] Glnwcxowzi3869 [place] [address]Dr. Madelynlorri Leal MANUAL DIFF REQ NO Normal [facility] Comment on above: Performed By: #### C BC ####[facility] Hmuwihyuph2699[address] [place], [place] [address]Dr. Farhat Elvis MCH (RBC) [Entitic mass] 29.4 pg Normal 25.9-34.0 [facility] Comment on above: Performed By: #### C BC ####[facility] Bezrydksge49232[address] [place], [place] [address]Dr. Farhat Leal MCHC (RBC) [Mass/Vol] 33.0 g/dL Normal 29.9-35.2 [facility] Comment on above: Performed By: #### C BC ####[facility] Dfbiwelmvl8172 [place] [id number]. Farhat Leal MCV (RBC) [Entitic vol] 88.9 fL Normal 80.0-94.0 [facility] Comment on above: Performed By: #### C BC ####[facility] Rkvtqiutel6214 [place] [address]Dr. Farhat Elvis MONO # 0.7 103/ul Normal 0.3-0.8 [facility] Comment on above: Performed By: #### C BC ####[facility] Hoxjpdmkvz1859 [place] [address]Dr. Farhat Leal Monocytes/100 WBC (Bld) 9.6 % Normal 1.7-12.0 [facility] Comment on above: Performed By: #### C BC ####[facility] Ietqypqibd48[address] [place], [place] [address]Dr. Farhat Elvis NEUT # 3.5 103/ul Normal 1.4-6.5 [facility] Comment on above: Performed By: #### C BC ####[facility] Bpfzwuewmk2503 [place] [address]Dr. Farhat Elvis Neutrophils/100 WBC (Bld) 51.0 % Normal 43.0-75.0 [facility] Comment on above: Performed By: #### C BC ####[facility] Oweyhgforo7072 [place] [address]Dr. Farhat Elvis Platelet mean volume (Bld) [Entitic vol] 10.3 fL Normal 9.5-13.5 [facility] Comment on above: Performed By: #### C BC ####[facility] Rmcleurxqw7985 [place] [address]Dr. Farhat Leal PLT 184 103/ul Normal 150-450 [facility] Comment on above: Performed By: #### C BC ####[facility] Laroumrdyx4717 [place] [address]Dr. Farhat Leal RBC 3.95 106/ul Critically low 4.70-6.10 [facility] Comment on above: Performed By: #### C BC ####[facility] Hclnnrnvov3478 [place] [address]Dr. Farhat Leal WBC 7.0 103/ul Normal 4.0-11.0 [facility] Comment on above: Performed By: #### C BC ####[facility] Bgxhvkygyb7930 [place] [address]DrSkylar Leal PROF 14(COMP METB)on 023 Albumin [Mass/Vol] 2.6 g/dL Critically low 3.4-5.0 [facility] Comment on above: Performed By: #### C MP ####[facility] Exlkjzrmhd6222 [place] [address]Dr. Farhat Leal Albumin/Globulin [Mass ratio] 0.9 {ratio} Normal [facility] Comment on above: Performed By: #### C MP ####[facility] Eaygjlyveg4213 [place] [address]Dr. Farhat Leal ALP [Catalytic activity/Vol] 53 U/L Normal 46-116 [facility] Comment on above: Performed By: #### C MP ####[facility] Fqiarwsqta0638 [place] [address]Dr. Farhat Leal ALT [Catalytic activity/Vol] 17 U/L Normal 16-63 [facility] Comment on above: Performed By: #### C MP ####[facility] Aphchbugkv7258 [place] [address]Dr. Farhat Leal Anion gap [Moles/Vol] 10.0 mmol/L Normal [facility] Comment on above: Performed By: #### C MP ####[facility] Ialayeszvi8153 [place] [address]DrSkylar Leal AST [Catalytic activity/Vol] 19 U/L Normal 15-37 [facility] Comment on above: Performed By: #### C MP ####[facility] Pbnmlenmqs5618 [place] [address]Dr. Farhat Leal Bilirubin [Mass/Vol] 0.5 mg/dL Normal 0.2-1.0 [facility] Comment on above: Performed By: #### C MP ####[facility] Yuanhbacos[address] [place], [place] [address]Dr. Farhat Leal Calcium [Mass/Vol] 8.4 mg/dL Critically low 8.5-10.1 Th e [facility] Comment on above: Performed By: #### C MP ####[facility] Mbdhqsakrp66[address] [place], [place] [address]Dr. Farhat Elvis Chloride [Moles/Vol] 108 mmol/L Critically high 98-107 The [facility] Comment on above: Performed By: #### C MP ####[facility] Pdusrvsbgk557326 [address] [place], [place] [address]Dr. Farhat Elvis CO2 [Moles/Vol] 26.9 mmol/L Normal 21.0-32.0 The [facility] Comment on above: Performed By: #### C MP ####[facility] Fhihmizoxc1606[address] [place], [place] [address]Dr. Farhat Elvis Creatinine [Mass/Vol] 1.20 mg/dL Normal 0.70-1.30 The [facility] Comment on above: Performed By: #### C MP ####[facility] Gljvwxytjf3159[address] [place], [place] [address]Dr. Madelynlorri Elvis EGFR-AF DANISH >60 Normal >=60 The [facility] Comment on above: Performed By: #### C MP ####[facility] Rlppxixenh262526 [address] [place], [place] [address]Dr. Madelynlorri Elvis EGFR-NON AF DANISH 59 mL/min/1.73m2 Critically low >=60 The [facility] Comment on above: Performed By: #### C MP ####[facility] Kvbpjviweb9715[address] [place], [place] [address]Dr. Farhat Leal Globulin (S) [Mass/Vol] 3.0 g/dL Normal The [facility] Comment on above: Performed By: #### C MP ####[facility] Xbmxmbwuty620126 [address] [place], [place] [address]Dr. Farhat Leal Glucose [Mass/Vol] 213 mg/dL Critically high 74-106 T [facility] Comment on above: Performed By: #### C MP ####[facility] Xvoukdkztc87[address] [place] [address]Dr. Farhat Elvis Potassium [Moles/Vol] 3.9 mmol/L Normal 3.5-5.1 [facility] Comment on above: Performed By: #### C MP ####[facility] Nakfimluzl13[address] [place] [address]Dr. Farhat Elvis Protein [Mass/Vol] 5.6 g/dL Critically low 6.4-8.2 Th [facility] Comment on above: Performed By: #### C MP ####[facility] Vdilywkfkq5725[address] [place], [place] [address]Dr. Farhat Leal Sodium [Moles/Vol] 141 mmol/L Normal 136-145 [facility] Comment on above: Performed By: #### C MP ####[facility] Qkoltbrqrx660526 [address] [place], [place] [address]Dr. Madelynlorri Leal Urea nitrogen [Mass/Vol] 61.0 mg/dL Critically high 7.0-18.0 [facility] Comment on above: Performed By: #### C MP ####[facility] Kioyeaucds4824[address] [place], [place] [address]Dr. Madelynlorri Leal Urea nitrogen/Creatinine [Mass ratio] 50.8 mg/mg Normal [facility] Comment on above: Performed By: #### C MP ####[facility] Npzxajqpnn901526 [address] [place], [place] [address]DrSkylar Farhat Elvis FK506 (TACROLIMUS) WHOLE BLO ODon 04-27-2022 Tacrolimus (FK506), Blood 16.5 ng/mL Normal 2.0-20.0 [facility] Comment on above: Result Comment: Trou gh (immediately following transplant) 15.0 . Trough (steady state, 2 weeks or more after transplant): 3.0 - 8.0 . Performed by LC-MS/MS technology. Performed By: #### F K506T ####[facility] Gmtadfdrtp9917[address] [place], [place] [address]DrSkylar Leal CBC AUTO DIFFon 04-24-2022 BASO # 0.0 103/ul Normal 0.0-0.1 The [facility] Comment on above: Performed By: #### C BC ####[facility] Ooykgwclno5[address] [place] [id number]. Farhat Leal Basophils/100 WBC (Bld) 0.5 % Normal 0.2-2.0 The [facility] Comment on above: Performed By: #### C BC ####[facility] Zvxsanpfxi6942 [place] [address]Dr. Farhat Leal EO # 0.2 103/ul Normal 0.0-0.7 The [facility] Comment on above: Performed By: #### C BC ####[facility] Eslawchpyv461326 [address] [place], [place] [address]Dr. Farhat Leal Eosinophils/100 WBC (Bld) 3.1 % Normal 0.9-7.0 The [facility] Comment on above: Performed By: #### C BC ####[facility] Gsgekpdekp266926 [address] [place], [place] [address]Dr. Farhat Leal Erythrocyte distribution width (RBC) [Ratio] 16.3 % Critically high 11.0-15.0 The [facility] Comment on above: Performed By: #### C BC ####[facility] Plwvigzgvz911526 [address] [place], [place] [address]Dr. Farhat Leal Hematocrit (Bld) [Volume fraction] 34.0 % Critically low 42.0-54.0 The [facility] Comment on above: Performed By: #### C BC ####[facility] Dpshnhktrs30[address] [place], [place] [id number]. Farhat Leal Hemoglobin (Bld) [Mass/Vol] 11.6 g/dL Critically low 14.0-18.0 The [facility] Comment on above: Performed By: #### C BC ####[facility] Psbwrfwogl8414 [place] [id number]. Farhat Leal IG # 0.02 10e3/ul Normal 0.00-0.03 The [facility] Comment on above: Performed By: #### C BC ####[facility] Kefrhuazau5366 [place] [address]Dr. Farhat Leal IG % 0.4 % Normal 0.0-0.5 The [facility] Comment on above: Performed By: #### C BC ####[facility] Cdwlxgmomp9520 [place] [address]Dr. Farhat Elvis LYMPH # 2.2 103/ul Normal 1.2-3.8 The [facility] Comment on above: Performed By: #### C BC ####[facility] Blpfcxleyj2801 [place] [id number]. Farhat Elvis Lymphocytes/100 WBC (Bld) 38.8 % Normal 20.5-60.0 The [facility] Comment on above: Performed By: #### C BC ####[facility] Cyhwbvsloy1333 [place] [address]Dr. Madelynlorri Leal MANUAL DIFF REQ NO Normal The [facility] Comment on above: Performed By: #### C BC ####[facility] Qxrasnkjrj9592 [place] [address]Dr. Farhat Leal MCH (RBC) [Entitic mass] 30.1 pg Normal 25.9-34.0 The [facility] Comment on above: Performed By: #### C BC ####[facility] Cfkfcoxmfc918826 [address] [place], [place] [address]Dr. Farhat Leal MCHC (RBC) [Mass/Vol] 34.1 g/dL Normal 29.9-35.2 The [facility] Comment on above: Performed By: #### C BC ####[facility] Itjivtrdqu7178 [place] [address]Dr. Farhat Leal MCV (RBC) [Entitic vol] 88.1 fL Normal 80.0-94.0 The [facility] Comment on above: Performed By: #### C BC ####[facility] Dzuvqvlmai694426 [address] [place], [place] [address]Dr. Farhat Leal MONO # 0.6 103/ul Normal 0.3-0.8 The [facility] Comment on above: Performed By: #### C BC ####[facility] Kmtrkxnccg8069 [place] [address]Dr. Farhat Leal Monocytes/100 WBC (Bld) 10.8 % Normal 1.7-12.0 The [facility] Comment on above: Performed By: #### C BC ####[facility] Ijuaywfqcc6841 [place] [address]Dr. Farhat Leal NEUT # 2.6 103/ul Normal 1.4-6.5 The [facility] Comment on above: Performed By: #### C BC ####[facility] Mpqnjzmjfd8488 [place] [address]Dr. Farhat Leal Neutrophils/100 WBC (Bld) 46.4 % Normal 43.0-75.0 The [facility] Comment on above: Performed By: #### C BC ####[facility] Kxevtyyzns5442 [place] [address]Dr. Farhat Leal Platelet mean volume (Bld) [Entitic vol] 10.9 fL Normal 9.5-13.5 The [facility] Comment on above: Performed By: #### C BC ####[facility] Qlphskoecg3638[address] [place], [place] [address]Dr. Farhat Leal PLT 159 103/ul Normal 150-450 The [facility] Comment on above: Performed By: #### C BC ####[facility] Lldceeetbg252326 [address] [place], [place] [address]Dr. Farhat Leal RBC 3.86 106/ul Critically low 4.70-6.10 The [facility] Comment on above: Performed By: #### C BC ####[facility] Svvbidaqig987426 [address] [place], [place] [address]Dr. Farhat Leal WBC 5.6 103/ul Normal 4.0-11.0 The [facility] Comment on above: Performed By: #### C BC ####[facility] Igijrwjhcw428326 [address] [place], [place] [address]Dr. Farhat Leal PROTIMEon 04-24-2022 INR Coag (PPP) [Relative time] 3.23 {INR} Normal The [facility] Comment on above: Performed By: #### P T ####[facility] Xfmenwomai378626 [address] [place], [place] [address]Dr. Farhat Leal INR GUIDELINES SEE BELOW Normal The [facility] Comment on above: Result Comment: MALINA RED INR: 2.0 - 3.0 CONDITIONS NOT LISTED BELOW 2.5 - 3.5 FOR PROSTHETIC HEART VALVE REPLACEMENT 2.5 - 3.5 RECURRENT THROMBOSIS Performed By: #### P T ####[facility] Xljxoimheo686726 [address] [place], [place] [address]DrSkylar Leal PT Coag (PPP) [Time] 32.0 s Critically high 9.0-11.6 [facility] Comment on above: Performed By: #### P T ####[facility] Wabjtvtefd330126 [address] [place], [place] [address]DrSkylar Leal FK506 (TACROLIMUS) WHOLE BLO ODon 04-20-2022 Tacrolimus (FK506), Blood 13.9 ng/mL Normal 2.0-20.0 [facility] Comment on above: Result Comment: Trou gh (immediately following transplant) 15.0 . Trough (steady state, 2 weeks or more after transplant): 3.0 - 8.0 . Performed by LC-MS/MS technology. Performed By: #### F K506T ####[facility] Cpwskfahkr877426 [address] [place], [place] [address]Dr. Farhat Leal CBC AUTO DIFFon 04-17-2022 BASO # 0.0 103/ul Normal 0.0-0.1 [facility] Comment on above: Performed By: #### C BC ####[facility] Muuusanqvb015726 [address] [place], [place] [address]DrSkylar Leal Basophils/100 WBC (Bld) 0.4 % Normal 0.2-2.0 The [facility] Comment on above: Performed By: #### C BC ####[facility] Dcygmvtdgq245026 [address] [place], [place] [address]DrSkylar Leal EO # 0.2 103/ul Normal 0.0-0.7 The [facility] Comment on above: Performed By: #### C BC ####[facility] Ykgbbxxalp346726 [address] [place], [place] [address]DrSkylar Leal Eosinophils/100 WBC (Bld) 2.8 % Normal 0.9-7.0 [facility] Comment on above: Performed By: #### C BC ####[facility] Sorlhhbfva158726 [address] [place], [place] [address]Dr. Farhat Leal Erythrocyte distribution width (RBC) [Ratio] 16.1 % Critically high 11.0-15.0 [facility] Comment on above: Performed By: #### C BC ####[facility] Lsnzromrez374[address] [place], [place] [address]Dr. Farhat Leal Hematocrit (Bld) [Volume fraction] 35.7 % Critically low 42.0-54.0 [facility] Comment on above: Performed By: #### C BC ####[facility] Hhisbrybnq856126 [address] [place], [place] [address]Dr. Farhat Elvsi Hemoglobin (Bld) [Mass/Vol] 12.2 g/dL Critically low 14.0-18.0 [facility] Comment on above: Performed By: #### C BC ####[facility] Viuikzkvkr648426 [address] [place], [place] [address]Dr. Farhat Leal IG # 0.03 10e3/ul Normal 0.00-0.03 The [facility] Comment on above: Performed By: #### C BC ####[facility] Kjqlbnaaip8830[address] [place], [place] [address]Dr. Madelynlorri Leal IG % 0.4 % Normal 0.0-0.5 The [facility] Comment on above: Performed By: #### C BC ####[facility] Gqrpvluodd458226 [address] [place], [place] [address]Dr. Madelynlorri Leal LYMPH # 2.4 103/ul Normal 1.2-3.8 The [facility] Comment on above: Performed By: #### C BC ####[facility] Zhgovughup466626 [address] [place], [place] [address]Dr. Farhat Leal Lymphocytes/100 WBC (Bld) 36.1 % Normal 20.5-60.0 The [facility] Comment on above: Performed By: #### C BC ####[facility] Thtexpebgz515426 [address] [place], [place] [address]Dr. Farhat Leal MANUAL DIFF REQ NO Normal [facility] Comment on above: Performed By: #### C BC ####[facility] Cdepkhpmdw8516 [place] [address]Dr. Farhat Leal MCH (RBC) [Entitic mass] 30.3 pg Normal 25.9-34.0 [facility] Comment on above: Performed By: #### C BC ####[facility] Dgfvixlrie0526 [place] [address]Dr. Farhat Leal MCHC (RBC) [Mass/Vol] 34.2 g/dL Normal 29.9-35.2 [facility] Comment on above: Performed By: #### C BC ####[facility] Qmwkiyxqrv938926 [address] [place], [place] [address]DrSkylar Leal MCV (RBC) [Entitic vol] 88.6 fL Normal 80.0-94.0 [facility] Comment on above: Performed By: #### C BC ####[facility] Zmzxaiupkg055326 [address] [place], [place] [address]DrSkylar Leal MONO # 0.7 103/ul Normal 0.3-0.8 [facility] Comment on above: Performed By: #### C BC ####[facility] Ykbmuqdgul724426 [address] [place], [place] [address]DrSkylar Leal Monocytes/100 WBC (Bld) 10.1 % Normal 1.7-12.0 [facility] Comment on above: Performed By: #### C BC ####[facility] Cpxsdwnnra2130[address] [place], [place] [address]DrSkylar Leal NEUT # 3.4 103/ul Normal 1.4-6.5 The [facility] Comment on above: Performed By: #### C BC ####[facility] Sfgdqqtkkh738926 [address] [place], [place] [address]DrSkylar Leal Neutrophils/100 WBC (Bld) 50.2 % Normal 43.0-75.0 The [facility] Comment on above: Performed By: #### C BC ####[facility] Joqurknqqv183026 [address] [place], [place] [address]DrSkylar Leal Platelet mean volume (Bld) [Entitic vol] 11.8 fL Normal 9.5-13.5 [facility] Comment on above: Performed By: #### C BC ####[facility] Tgforbtuhe3671 [place] [address]Dr. Farhat Leal PLT 193 103/ul Normal 150-450 [facility] Comment on above: Performed By: #### C BC ####[facility] Fhgsrqagss9500 [place] [address]Dr. Fahrat Leal RBC 4.03 106/ul Critically low 4.70-6.10 [facility] Comment on above: Performed By: #### C BC ####[facility] Bjsptmruay3731 [place] [address]Dr. Farhat Leal WBC 6.8 103/ul Normal 4.0-11.0 [facility] Comment on above: Performed By: #### C BC ####[facility] Unhdnibauz8048 [place] [address]Dr. Farhat Leal PROF 14(COMP METB)on 023 Albumin [Mass/Vol] 2.9 g/dL Critically low 3.4-5.0 [facility] Comment on above: Performed By: #### C MP ####[facility] Deoinhnbtg698626 [address] [place], [place] [address]Dr. Farhat Leal Albumin/Globulin [Mass ratio] 0.9 {ratio} Normal [facility] Comment on above: Performed By: #### C MP ####[facility] Kunojdtios4974 [place] [address]Dr. Farhat Leal ALP [Catalytic activity/Vol] 67 U/L Normal 46-116 The [facility] Comment on above: Performed By: #### C MP ####[facility] Vhlsksopbh3065 [place] [address]Dr. Farhat Leal ALT [Catalytic activity/Vol] 15 U/L Critically low 16-63 [facility] Comment on above: Performed By: #### C MP ####[facility] Srzhplozhx9272 [place] [address]Dr. Farhat Leal Anion gap [Moles/Vol] 10.8 mmol/L Normal Th [facility] Comment on above: Performed By: #### C MP ####[facility] Zfdluprbxb3219 [place] [address]Dr. Farhat Leal AST [Catalytic activity/Vol] 23 U/L Normal 15-37 [facility] Comment on above: Performed By: #### C MP ####[facility] Yxwojyyrwg0409 [place] [address]Dr. Farhat Leal Bilirubin [Mass/Vol] 0.6 mg/dL Normal 0.2-1.0 [facility] Comment on above: Performed By: #### C MP ####[facility] Qfbcufimkm963326 [address] [place], [place] [address]Dr. Farhat Leal Calcium [Mass/Vol] 8.7 mg/dL Normal 8.5-10.1 [facility] Comment on above: Performed By: #### C MP ####[facility] Oukelofily8[address] [place], [place] [address]Dr. Farhat Leal Chloride [Moles/Vol] 105 mmol/L Normal 98-107 [facility] Comment on above: Performed By: #### C MP ####[facility] Iuxjyegdds8774[address] [place], [place] [address]Dr. Farhat Leal CO2 [Moles/Vol] 29.5 mmol/L Normal 21.0-32.0 [facility] Comment on above: Performed By: #### C MP ####[facility] Bnavtppqbw8009[address] [place], [place] [address]Dr. Farhat Leal Creatinine [Mass/Vol] 1.37 mg/dL Critically high 0.70-1.30 [facility] Comment on above: Performed By: #### C MP ####[facility] Aoxajjucjm4790[address] [place], [place] [address]Dr. Faraht Leal EGFR-AF DANISH >60 Normal >=60 The [facility] Comment on above: Performed By: #### C MP ####[facility] Eaehqnakxx392[address] [place], [place] [address]Dr. Farhat Leal EGFR-NON AF DANISH 50 mL/min/1.73m2 Critically low >=60 The [facility] Comment on above: Performed By: #### C MP ####[facility] Yibwrvofaa3558 [place] [address]Dr. Farhat Leal Globulin (S) [Mass/Vol] 3.1 g/dL Normal [facility] Comment on above: Performed By: #### C MP ####[facility] Npmpklilir3632 [place] [id number]. Farhat Leal Glucose [Mass/Vol] 203 mg/dL Critically high 74-106 [facility] Comment on above: Performed By: #### C MP ####[facility] Jmhniobiuf4376 [place] [address]Dr. Farhat Leal Potassium [Moles/Vol] 4.3 mmol/L Normal 3.5-5.1 [facility] Comment on above: Performed By: #### C MP ####[facility] Tyvzpbjrev2623 [place] [address]Dr. Farhat Leal Protein [Mass/Vol] 6.0 g/dL Critically low 6.4-8.2 Th [facility] Comment on above: Performed By: #### C MP ####[facility] Aoydkzkioy8587 [place] [address]Dr. Farhat Leal Sodium [Moles/Vol] 141 mmol/L Normal 136-145 [facility] Comment on above: Performed By: #### C MP ####[facility] Lbfsxgaejj6840 [place] [address]Dr. Farhat Leal Urea nitrogen [Mass/Vol] 65.0 mg/dL Critically high 7.0-18.0 [facility] Comment on above: Performed By: #### C MP ####[facility] Ipazuagggv2756 [place] [address]Dr. Farhat Leal Urea nitrogen/Creatinine [Mass ratio] 47.4 mg/mg Normal [facility] Comment on above: Performed By: #### C MP ####[facility] Ceneevbxuk4427 [place] [address]Dr. Farhat Elvis PROTIMEon 04-15-2022 INR Coag (PPP) [Relative time] 3.88 {INR} Normal The [facility] Comment on above: Performed By: #### P T ####[facility] Gzglvqttzo8999 [place] [id number]. Farhat Leal INR GUIDELINES SEE BELOW Normal [facility] Comment on above: Result Comment: MALINA RED INR: 2.0 - 3.0 CONDITIONS NOT LISTED BELOW 2.5 - 3.5 FOR PROSTHETIC HEART VALVE REPLACEMENT 2.5 - 3.5 RECURRENT THROMBOSIS Performed By: #### P T ####[facility] Dwhbgojeaz0112 [place], [place] [address]He. Farhat Leal PT Coag (PPP) [Time] 38.1 s Critically high 9.0-11.6 [facility] Comment on above: Performed By: #### P T ####[facility] Btmuqviqtj1743 [place], [place] [address]Bs. Farhat Leal Glucose Glucometer (BldC) [M ass/Vol]Ordered By: Sadia Aguilar on 04-14-2022 Glucose [Mass/Vol] 162 mg/dL [facility] Comment on above: Random Glucose Refer ence Range is dependent on time and content of last meal. Glucose of more than 200 mg/dL in a nonstressed, ambulatory subject supports the diagnosis of Diabetes Mellitus. Glucose Poct Glucometerson 0 04-14-2022 Commemt1 Glu2: Cleaned Meter Normal [facility] Comment on above: Result Comment: PERF ORMED BY: [facility] [address] [place] [address] PATHOLOGIST [employer] JOSE F ELLIOTT M.D. Performed By: #### G LULS #### Point of Care testing , Glucose [Mass/Vol] 162 mg/dL Normal [facility] Comment on above: Result Comment: [facility] Glucose Reference Range is dependent on time and content of last meal. Glucose of more than 200 mg/dL in a nonstressed, ambulatory subject supports the diagnosis of Diabetes Mellitus. Performed By: #### G LULS #### Point of Care testing , No Panel InformationOrdered By: Sadia Aguilar on 04-14-2022 Bedside Glucose Comment Glu2: cleaned meter [facility] MAGNESIUMon 04-13-2022 Magnesium [Mass/Vol] 1.7 mg/dL Critically low 1.8-2.4 The [facility] Comment on above: Performed By: #### M HENRI Manzo ####[facility] Vqnempmfwu[address] [place], [place] [address]Dr. Farhat Leal PHOSPHORUSon 04-13-2022 Phosphate [Mass/Vol] 4.8 mg/dL Critically high 2.6-4.7 The [facility] Comment on above: Performed By: #### M ANA ManzoS ####[facility] Ynylrdiebp3[address] [place], [place] [address]Dr. Farhat Leal PROTIMEon 04-13-2022 INR Coag (PPP) [Relative time] 3.16 {INR} Normal [facility] Comment on above: Performed By: #### P T ####[facility] Syuzvrkgjr540[address] [place], [place] [address]Dr. Farhat Leal INR GUIDELINES SEE BELOW Normal [facility] Comment on above: Result Comment: MALINA RED INR: 2.0 - 3.0 CONDITIONS NOT LISTED BELOW 2.5 - 3.5 FOR PROSTHETIC HEART VALVE REPLACEMENT 2.5 - 3.5 RECURRENT THROMBOSIS Performed By: #### P T ####[facility] Vyefftsexm85[address] [place], [place] [address]Dr. Farhat Leal PT Coag (PPP) [Time] 31.4 s Critically high 9.0-11.6 [facility] Comment on above: Performed By: #### P T ####[facility] Wvcmufbflf9038[address] [place], [place] [address]Dr. Farhat Leal MAGNESIUMon 03-11-2022 Magnesium [Mass/Vol] 1.6 mg/dL Critically low 1.8-2.4 The [facility] Comment on above: Performed By: #### HENRI Winters ####[facility] Rqomjzmgfo714[address] [place], [place] [address]Dr. Farhat Leal PHOSPHORUSon 03-11-2022 Phosphate [Mass/Vol] 5.3 mg/dL Critically high 2.6-4.7 [facility] Comment on above: Performed By: #### M G, PHOS ####[facility] Mwdicrexiq5792 [place], [place] [address]Ee. 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 Magic [employer] [place] with lunch aspirin, enteric coated (ASPIRIN, ENTERIC COATED) 81 mg EC tablet Take 1 tablet by (more content not included)... Normal [facility] PROTIMEon 02-25-2022 INR Coag (PPP) [Relative time] 1.31 {INR} Normal [facility] Comment on above: Performed By: #### P T ####[facility] [address] [place] [address]Dr. Farhat Leal INR GUIDELINES SEE BELOW Normal [facility] Comment on above: Result Comment: MALINA RED INR: 2.0 - 3.0 CONDITIONS NOT LISTED BELOW 2.5 - 3.5 FOR PROSTHETIC HEART VALVE REPLACEMENT 2.5 - 3.5 RECURRENT THROMBOSIS Performed By: #### P T ####[facility] [address] [place] [address]Dr. Farhat Leal PT Coag (PPP) [Time] 13.7 s Critically high 9.0-11.6 [facility] Comment on above: Performed By: #### P T ####[facility] [address] [place], [place] [address]LtSkylar Hassan 02-19-2022 CNPN Telephone (TXCTGL) ALEX ALMONTE ([id number]) 1945 M TRN Date Time Provider Department 02/19/22 AUGUSTA MEDRANO TXCTGL During your visit today, we recorded the following information about you: Augusta Medrano RN 02/19/2022 11:16 AM Signed Alex Almonte's nursing facility, [facility], called regarding elevated tacrolimus level (23.9). [...] by mouth daily with lunch. 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 Almonte would like to request a sooner appointment with Dr. Peterson than 04/13/2022. Contact Name (if not the patient) Alex's nurse Home and cell number(Ask for Alex's nurse) [phone] Diagnosis 4 mo f/u wound check Best regards, Yumiko Hidalgo Chirag 02/19/2022 12:22 PM Signed [place] appointments have been scheduled accordingly. Patient has [...] by mouth daily with lunch. 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 Normal [facility] CNOVon 02-05-2022 CNOV Office Visit (TXCTGL ) ALEX ALMONTE ([id number]) 1945 M TRN Date Time Provider Department 02/05/22 8:20 AM [facility] TXCTGL During your visit today, we recorded the following information about you: Temperature Pulse Blood pressure 96.7 degrees 79/minute 72/42 Asia Pike MD 02/05/2022 9:38 AM Signed [facility] [place] Trans[facility] Follow up Portions of this note [...] and snacks patient declined. Indra scale at [facility]: 166.2 lbs per patient. Bed sore on coccyx causing discomfort. Being changed regularly at SNF- reported to be smaller around but still as deep. Patient not very up to date with medications. Patient brought paperwork from [employer] with all medications being received. Patient unsure if they have been drawing labs regularly. Last Tac from 01/19: 12.9 and K 5.9. In need of current labs. Lab orders will be sent with patient and follows as below: Kidney and Pancreas Transplant Standing Lab Orders [address] [place], [place] [address] February 05, 2022 Alex Almonte 1945 [id number] STANDARD TESTING: Diagnosis Codes: Z94.0 Kidney Transplant [...] AT YOUR LABORATORY FACILITY AND FAX TO [phone]. PLEASE CALL [phone]. Provider: Dr. Pike Current Outpatient Medications Medication [...] Take 237 (more content not included)... Normal [facility] PROTEIN CREATININE RATIOon 1 04-08-2021 Protein/Creatinine (U) [Mass ratio] 0.10 mg/mg <0.15 mg/mg [facility] PROTIMEon 02-05-2022 INR Coag (PPP) [Relative time] 2.90 {INR} Normal [facility] Comment on above: Performed By: #### P T ####[facility] [address] [place] [address]DrSkylar Leal INR GUIDELINES SEE BELOW Normal [facility] Comment on above: Result Comment: MALINA RED INR: 2.0 - 3.0 CONDITIONS NOT LISTED BELOW 2.5 - 3.5 FOR PROSTHETIC HEART VALVE REPLACEMENT 2.5 - 3.5 RECURRENT THROMBOSIS Performed By: #### P T ####[facility] [address] [place] [address]DrSkylar Leal PT Coag (PPP) [Time] 29.2 s Critically high 9.0-11.6 [facility] Comment on above: Performed By: #### P T ####[facility] [address] [place] [address]DrSkylar Leal Prot/Creat Uron 02-05-2022 Protein/Creatinine (U) [Mass ratio] 0.10 mg/mg Normal <0.15 [facility] Comment on above: Order Comment: Speci men Type: URINE SPECIMENOrdering Facility: [facility] [facility] Address: [address] [place], [place] [id number] Result Comment: Adul t Proteinuria Categories: <0.15 mg/mg is considered normal to mildly increased 0.15 - 0.50 mg/mg is considered moderately increased >0.50 mg/mg is considered severely increased KDIGO. (2013). KDIGO 2012 Clinical Practice Guideline for the Evaluation and Management of Chronic Kidney Disease. Official Journal of the International Society of Nephrology, 3(1), 1-150. Performed By: #### 2 890-2 ####[facility] [id number] [place] [address] [place] Protein/Creatinine (U) [Mass ratio]on 02-05-2022 Creatinine (U) [Mass/Vol] 86.9 mg/dL Normal 20.0-300.0 [facility] Comment on above: Order Comment: Speci men Type: URINE SPECIMENOrdering Facility: [facility] [facility] Address: [address] [place] [address] Performed By: #### 2 890-2 ####[facility] [id number] [place] [address] [place] Creatinine (U) [Mass/Vol] 86.9 mg/dL 20.0 - 300.0 mg/dL [facility] Protein (U) [Mass/Vol] 9 mg/dL Normal 0-20 Cl [facility] Comment on above: Order Comment: Speci men Type: URINE SPECIMENOrdering Facility: [facility] [facility] Address: [address] [place], [place] [address] Performed By: #### 2 890-2 ####[facility] [id number] [place] [address] [place] Protein (U) [Mass/Vol] 9 mg/dL 0 - 20 mg/dL [facility] URINALYSIS, DIPSTICK ONLYon 02-05-2022 Bilirubin Ql (U) Negative Normal Negative [facility] Comment on above: Order Comment: Speci men Type: URINE SPECIMEN Ordering Facility: [facility] [facility] Address: [address] [address] Performed By: #### U A #### [facility] CLIA [id number] [address] [place] [address] [place] Clarity (Unsp spec) Clear Normal Clear [facility] Comment on above: Order Comment: Speci men Type: URINE SPECIMEN Ordering Facility: [facility] [facility] Address: [address] [address] Performed By: #### U A #### [facility] CLIA [id number] [address] [place] [address] [place] Color (U) Yellow Normal Yellow [facility] Comment on above: Order Comment: Speci men Type: URINE SPECIMEN Ordering Facility: [facility] Address: [address] [place] [address] Performed By: #### U A #### [facility] CLIA [id number] [address] [place] [address] [place] Glucose Test strip (U) [Mass/Vol] 3+ Abnormal Trace, Negative [facility] Comment on above: Order Comment: Speci men Type: URINE SPECIMEN Ordering Facility: [facility] Address: [address] [place] [address] Performed By: #### U A #### [facility] CLIA [id number] [address] [place] [address] [place] Hemoglobin Ql (U) Negative Normal Negative, Trace [facility] Comment on above: Order Comment: Speci men Type: URINE SPECIMEN Ordering Facility: [facility] Address: [address] [place], [place] [id number] Performed By: #### U A #### [facility] CLIA [id number] [address] [place] [address] [place] Ketones Ql (U) Trace Normal Negative, Trace [facility] Comment on above: Order Comment: Speci men Type: URINE SPECIMEN Ordering Facility: [facility] Address: [address] [place] [address] Performed By: #### U A #### [facility] CLIA [id number] [address] [place] [address] [place] Leukocyte esterase Test strip Ql (U) Negative Normal Negative, 25 Loraine/mL [facility] Comment on above: Order Comment: Speci men Type: URINE SPECIMEN Ordering Facility: [facility] Address: [address] [address] Performed By: #### U A #### [facility] CLIA [id number] [address] [place] [address] [place] Nitrite Ql (U) Negative Normal Negative [facility] Comment on above: Order Comment: Speci men Type: URINE SPECIMEN Ordering Facility: [facility] Address: [address] [place] [address] Performed By: #### U A #### [facility] CLIA [id number] [address] [place] [address] [place] pH (U) 5.5 [pH] Normal 5.0-8.0 [facility] Comment on above: Order Comment: Speci men Type: URINE SPECIMEN Ordering Facility: [facility] Address: [address] [place] [address] Performed By: #### U A #### [facility] CLIA [id number] [address] [place] [address] [place] Protein (U) [Mass/Vol] Negative Normal Trace , Negative [facility] Comment on above: Order Comment: Speci men Type: URINE SPECIMEN Ordering Facility: [facility] Address: [address] [place] [address] Performed By: #### U A #### [facility] CLIA [id number] [address] [place] [address] [place] Specific gravity (U) [Rel density] 1.014 Normal 1.005-1.030 [facility] Comment on above: Order Comment: Speci men Type: URINE SPECIMEN Ordering Facility: [facility] Address: [address] [address] Performed By: #### U A #### [facility] CLIA [id number] [facility] [place] [address] [place] Urobilinogen Ql (U) 1+ Abnormal Negative [facility] Comment on above: Order Comment: Speci men Type: URINE SPECIMEN Ordering Facility: [facility] Address: [address] [address] Performed By: #### U A #### [facility] CLIA [id number] [address] [place] [address] OF [place] FK506 (TACROLIMUS) WHOLE BLO ODon 01-29-2022 Tacrolimus (FK506), Blood 11.1 ng/mL Normal 2.0-20.0 [facility] Comment on above: Result Comment: Trou gh (immediately following transplant) 15.0 . Trough (steady state, 2 weeks or more after transplant): 3.0 - 8.0 . Performed by LC-MS/MS technology. Performed By: #### F K506T ####[facility] [address] [place], [place] [address]Dr. Farhat Leal PHOSPHORUSon 01-26-2022 Phosphate [Mass/Vol] 4.1 mg/dL Normal 2.6-4.7 [facility] Comment on above: Performed By: #### C CARA PHOS ####[facility] [address] [place], [place] [address]DrSkylar Leal PROF 14(COMP METB)on 022 Albumin [Mass/Vol] 2.1 g/dL Critically low 3.4-5.0 Th [facility] Comment on above: Performed By: #### C CARA PHOS ####[facility] [address] [place], [place] [address]DrSkylar Leal Albumin/Globulin [Mass ratio] 0.6 {ratio} Normal [facility] Comment on above: Performed By: #### C MP, PHOS ####[facility] [address] [place] [address]Dr. Farhat Leal ALP [Catalytic activity/Vol] 89 U/L Normal 46-116 [facility] Comment on above: Performed By: #### C MP, PHOS ####[facility] Fr[address] [place], [place] [address]Dr. Farhat Elvis ALT [Catalytic activity/Vol] 27 U/L Normal 16-63 [facility] Comment on above: Performed By: #### C MP, PHOS ####[facility] X[address] [place], [place] [address]Dr. Farhat Elvis Anion gap [Moles/Vol] 12.3 mmol/L Normal Th [facility] Comment on above: Performed By: #### C CARA, PHOS ####[facility] Y[address]uf[address] [place], [place] [address]Dr. Farhat Elvis AST [Catalytic activity/Vol] 53 U/L Critically high 15-37 [facility] Comment on above: Performed By: #### C CARA, PHOS ####[facility] Z[address]rvfunou[address] [place], [place] [address]Dr. Farhat Elvis Bilirubin [Mass/Vol] 0.6 mg/dL Normal 0.2-1.0 [facility] Comment on above: Performed By: #### C CARA, PHOS ####[facility] Ulufyouvck[address] [place], [place] [address]Dr. Farhat Elvis Calcium [Mass/Vol] 8.0 mg/dL Critically low 8.5-10.1 [facility] Comment on above: Performed By: #### C MP, PHOS ####[facility] [address] [place], [place] [address]Dr. Madelynlorri Elvis Chloride [Moles/Vol] 97 mmol/L Critically low 98-107 [facility] Comment on above: Performed By: #### C MP, PHOS ####[facility] [address] [place], [place] [address]Dr. Farhat Leal CO2 [Moles/Vol] 26.6 mmol/L Normal 21.0-32.0 [facility] Comment on above: Performed By: #### C CARA, PHOS ####[facility] [address] [place] [address]Dr. Farhat Leal Creatinine [Mass/Vol] 1.03 mg/dL Normal 0.70-1.30 [facility] Comment on above: Performed By: #### Fady MARROQUIN, PHOS ####[facility] [address] [place] [address]Dr. Farhat Leal EGFR-AF DANISH >60 Normal >=60 [facility] Comment on above: Performed By: #### Fady MARROQUIN, PHOS ####[facility] K[address]obnco[address] [place], [place] [address]Dr. Farhat Leal EGFR-NON AF DANISH >60 Normal >=60 [facility] Comment on above: Performed By: #### Fady MARROQUIN, PHOS ####[facility] X[address]rg[address] [place], [place] [address]Dr. Farhat Leal Globulin (S) [Mass/Vol] 3.7 g/dL Normal [facility] Comment on above: Performed By: #### Fady MARROQUIN, PHOS ####[facility] [address] [place], [place] [address]Dr. Farhat Leal Glucose [Mass/Vol] 287 mg/dL Critically high 74-106 T [facility] Comment on above: Performed By: #### Fady MARROQUIN, PHOS ####[facility] [address] [place] [address]Dr. Farhat Leal Potassium [Moles/Vol] 3.9 mmol/L Normal 3.5-5.1 [facility] Comment on above: Performed By: #### Fady MARROQUIN, PHOS ####[facility] [address] [place], [place] [address]Dr. Farhat Leal Protein [Mass/Vol] 5.8 g/dL Critically low 6.4-8.2 Th [facility] Comment on above: Performed By: #### Fady MARROQUIN, PHOS ####[facility] [address] [place] [id number]. Farhat Leal Sodium [Moles/Vol] 132 mmol/L Critically low 136-145 Th e [facility] Comment on above: Performed By: #### C CARA, PHOS ####[facility] [address] [place] [address]Dr. Farhat Leal Urea nitrogen [Mass/Vol] 23.0 mg/dL Critically high 7.0-18.0 [facility] Comment on above: Performed By: #### C CARA, PHOS ####[facility] [address] [place], [place] [address]Dr. Farhat Leal Urea nitrogen/Creatinine [Mass ratio] 22.3 mg/mg Normal [facility] Comment on above: Performed By: #### C CARA, PHOS ####[facility] Ed[address]li[address] [place], [place] [address]Dr. Farhat Leal FK506 (TACROLIMUS) WHOLE BLO ODon 01-21-2022 Tacrolimus (FK506), Blood 12.2 ng/mL Normal 2.0-20.0 [facility] Comment on above: Result Comment: Trou gh (immediately following transplant) 15.0 . Trough (steady state, 2 weeks or more after transplant): 3.0 - 8.0 . Performed by LC-MS/MS technology. Performed By: #### F K506T ####[facility] [address]xd[address] [place], [place] [address]Dr. Farhat Leal ACID FAST SMEAR AND CXon Acid Fast Culture Negative Normal [facility] Comment on above: Result Comment: No a abdiel fast bacilli isolated after 6 weeks. Performed By: #### A FB ####[facility] [address] [place] [id number]. Farhat Leal Acid Fast Smear Negative Normal [facility] Comment on above: Performed By: #### A FB ####[facility] [address] [place], [place] [address]Dr. Farhat Leal [employer] Specimen Processing Tissue Grinding Normal [facility] Comment on above: Performed By: #### A FB ####[facility] [address] [place], [place] [address]Dr. Farhat Leal Sonya 01-20-2022 CONRADO Telephone (KIMBERLY) ALEX ALMONTE ([id number]) 1945 M TRN Date Time Provider Department 01/20/22 VAN OLIVAREZ During your visit today, we recorded the following information about you: Van Olivarez APRN.CNP 01/20/2022 1:14 PM Signed Labs noted from yesterday. Pt is currently residing at [facility], I spoke with the Nurse, [...] by mouth daily with lunch. 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 Farhat Leal Albumin/Globulin [Mass ratio] 0.5 {ratio} Normal [facility] Comment on above: Performed By: #### C MP ####[facility] [address] [address]Dr. Farhat Elvis ALP [Catalytic activity/Vol] 78 U/L Normal 46-116 [facility] Comment on above: Performed By: #### C MP ####[facility] [address] [place] [address]Dr. Farhat Elvis ALT [Catalytic activity/Vol] 22 U/L Normal 16-63 The [facility] Comment on above: Performed By: #### C MP ####[facility] [address] [address]Dr. Farhat Elvis Anion gap [Moles/Vol] 8.0 mmol/L Normal [facility] Comment on above: Performed By: #### C MP ####[facility] [address] [place], [place] [address]Dr. Farhat Elvis AST [Catalytic activity/Vol] 92 U/L Critically high 15-37 [facility] Comment on above: Performed By: #### C MP ####[facility] [address] [place], [place] [address]Dr. Farhat Elvis Bilirubin [Mass/Vol] 0.7 mg/dL Normal 0.2-1.0 The [facility] Comment on above: Performed By: #### C MP ####[facility] [address] [place], [place] [address]Dr. Farhat Leal Calcium [Mass/Vol] 7.8 mg/dL Critically low 8.5-10.1 Th [facility] Comment on above: Performed By: #### C MP ####[facility] [address] [address]Dr. Madelynlorri Leal Chloride [Moles/Vol] 99 mmol/L Normal 98-107 The [facility] Comment on above: Performed By: #### C MP ####[facility] [address] [place] [address]Dr. Farhat Leal CO2 [Moles/Vol] 30.9 mmol/L Normal 21.0-32.0 The [facility] Comment on above: Performed By: #### C MP ####[facility] [address] [place], [place] [address]Dr. Farhat Leal Creatinine [Mass/Vol] 0.95 mg/dL Normal 0.70-1.30 [facility] Comment on above: Performed By: #### C MP ####[facility] [address] [address]Dr. Farhat Leal EGFR-AF DANISH >60 Normal >=60 [facility] Comment on above: Performed By: #### C MP ####[facility] [address] [place] [address]Dr. Farhat Leal EGFR-NON AF DANISH >60 Normal >=60 [facility] Comment on above: Performed By: #### C MP ####[facility] [address] [place] [address]Dr. Farhat Leal Globulin (S) [Mass/Vol] 3.9 g/dL Normal [facility] Comment on above: Performed By: #### C MP ####[facility] [address] [place] [address]Dr. Farhat Leal Glucose [Mass/Vol] 124 mg/dL Critically high 74-106 T [facility] Comment on above: Performed By: #### C MP ####[facility] [address]dm[address] [place] [address]Dr. Farhat Leal Potassium [Moles/Vol] 5.9 mmol/L Critically high 3.5-5.1 [facility] Comment on above: Performed By: #### C MP ####[facility] [address] [place] [address]Dr. Farhat Leal Protein [Mass/Vol] 5.8 g/dL Critically low 6.4-8.2 Th [facility] Comment on above: Performed By: #### C MP ####[facility] [address] [place] [address]Dr. Farhat Leal Sodium [Moles/Vol] 132 mmol/L Critically low 136-145 Th [facility] Comment on above: Performed By: #### C MP ####[facility] [address] [place] [address]Dr. Farhat Leal Urea nitrogen [Mass/Vol] 18.0 mg/dL Normal 7.0-18.0 [facility] Comment on above: Performed By: #### C MP ####[facility] [address] [place] [address]Dr. Farhat Leal Urea nitrogen/Creatinine [Mass ratio] 18.9 mg/mg Normal [facility] Comment on above: Performed By: #### C MP ####[facility] Xfelmsncyy89[address] [place], [place] [id number]. Farhat Leal INR (POC)on 01-12-2022 INR Coag (PPP) [Relative time] 2.6 {INR} High 0.8 - 1.2 [facility] Internal Quality Check Acceptable Cl [facility] ACID FAST SMEAR AND CXon Acid Fast Culture Negative Normal [facility] Comment on above: Result Comment: No a abdiel fast bacilli isolated after 6 weeks. Performed By: #### A FB ####[facility] Ugwdtzpkxz0114[address] [place], [place] [address]Dr. Farhat Leal Acid Fast Smear Negative Normal [facility] Comment on above: Performed By: #### A FB ####[facility] Pnqbiialof178[address] [place], [place] [address]Dr. Farhat [employer]al [employer] Specimen Processing Direct Inoculation Normal [facility] Comment on above: Performed By: #### A FB ####[facility] Ltcicigznb2956[address] [place], [place] [address]Dr. Farhat Leal ACID FAST SMEAR AND CXon Acid Fast Culture Negative Normal [facility] Comment on above: Result Comment: No a abdiel fast bacilli isolated after 6 weeks. Performed By: #### A FB ####[facility] Eindlamjre[address] [place], [place] [id number]. Farhat Leal Acid Fast Smear Negative Normal [facility] Comment on above: Performed By: #### A FB ####[facility] Oassktgkaf9928[address] [place], [place] [address]Dr. Farhat [employer]al [employer] Specimen Processing Tissue Grinding Normal [facility] Comment on above: Performed By: #### A FB ####[facility] Tgphrrigon1837[address] [place], [place] [address]Dr. Farhat Leal FUNGAL CULTUREon 01-02-2022 Fungus (Mycology) Culture Final report Normal [facility] Comment on above: Performed By: #### C XFUN ####[facility] Jdtqvosufe65[address] [place], [place] [address]Dr. Farhat Leal Fungus Stain Final report Normal [facility] Comment on above: Performed By: #### C XFUN ####[facility] Y[address]bsgfocj[address] [place] [address]Dr. Farhat Leal Result 1 Comment Normal [facility] Comment on above: Result Comment: ANNI/ Calcofluor preparation: no fungus observed. Performed By: #### C XFUN ####[facility] Dscnuqxyec8713[address] [place], [place] [address]Dr. Farhat Leal Result Comment: No y east or mold isolated after 4 weeks. FK506 (TACROLIMUS) WHOLE BLO ODon 12-31-2021 Tacrolimus (FK506), Blood 7.7 ng/mL Normal 2.0-20.0 [facility] Comment on above: Result Comment: Trou gh (immediately following transplant) 15.0 . Trough (steady state, 2 weeks or more after transplant): 3.0 - 8.0 . Performed by LC-MS/MS technology. Performed By: #### F K506T ####[facility] Ghmcqnwtlj06[address] [place], [place] [address]Dr. Farhat Leal HEMOGRAM AND PLATELon 2021 Hematocrit (Bld) [Volume fraction] 27.1 % Critically low 42.0-54.0 [facility] Comment on above: Performed By: #### H H ####[facility] Tlpstzrlqm8[address] [place], [place] [address]Dr. Farhat Leal Hemoglobin (Bld) [Mass/Vol] 8.7 g/dL Critically low 14.0-18.0 [facility] Comment on above: Performed By: #### H H ####[facility] Iywrzraxvr277[address] [place], [place] [address]Dr. Farhat Leal MCH (RBC) [Entitic mass] 30.3 pg Normal 25.9-34.0 [facility] Comment on above: Performed By: #### H H ####[facility] [address]scksg[address] [place], [place] [address]Fk. Madelynlorri Elvis MCHC (RBC) [Mass/Vol] 32.1 g/dL Normal 29.9-35.2 [facility] Comment on above: Performed By: #### H H ####[facility] [address]coaum[address] [place] [id number]. Farhat Leal MCV (RBC) [Entitic vol] 94.4 fL Critically high 80.0-94.0 [facility] Comment on above: Performed By: #### H H ####[facility] Okbywqpwtu[address] [place] [address]Dr. Farhat Leal PLT 355 103/ul Normal 150-450 [facility] Comment on above: Performed By: #### H H ####[facility] Oqnxoyogdg4521 [place] [address]Dr. Farhat Leal RBC 2.87 106/ul Critically low 4.70-6.10 [facility] Comment on above: Performed By: #### H H ####[facility] Ld[address]jgplbw34[address] [place] [address]Dr. Farhat Leal WBC 6.0 103/ul Normal 4.0-11.0 [facility] Comment on above: Performed By: #### H H ####[facility] Ehicqgkpht6127 [place] [address]Dr. Farhat Leal PHOSPHORUSon 12-29-2021 Phosphate [Mass/Vol] 2.5 mg/dL Critically low 2.6-4.7 [facility] Comment on above: Performed By: #### P HOS, CMP ####[facility] Nfkhkyvxgt98[address] [place] [address]DrSkylar Leal PROF 14(COMP METB)on 022 Albumin [Mass/Vol] 1.7 g/dL Critically low 3.4-5.0 [facility] Comment on above: Performed By: #### P HOS, CMP ####[facility] Incgikvkcg2936 [place] [address]Dr. Farhat Leal Albumin/Globulin [Mass ratio] 0.5 {ratio} Normal [facility] Comment on above: Performed By: #### P HOS, CMP ####[facility] Ssfozccenu[address] [place] [address]Dr. Farhat Leal ALP [Catalytic activity/Vol] 78 U/L Normal 46-116 [facility] Comment on above: Performed By: #### P HOS, CMP ####[facility] Ytwscjznjl5892 [place] [address]Dr. Farhat Leal ALT [Catalytic activity/Vol] 12 U/L Critically low 16-63 [facility] Comment on above: Performed By: #### P HOS, CMP ####[facility] Jstfxfryga3387[address] [place], [place] [address]Dr. Farhat Leal Anion gap [Moles/Vol] 5.1 mmol/L Normal [facility] Comment on above: Performed By: #### P HOS, CMP ####[facility] Ogvgtdocbe154226 [address] [place], [place] [address]Dr. Farhat Leal AST [Catalytic activity/Vol] 22 U/L Normal 15-37 [facility] Comment on above: Performed By: #### P HOS, CMP ####[facility] Ybcgxpquqx3918[address] [place], [place] [address]Dr. Farhat Leal Bilirubin [Mass/Vol] 0.6 mg/dL Normal 0.2-1.0 [facility] Comment on above: Performed By: #### P HOS, CMP ####[facility] Wnruwrhglo108[address] [place], [place] [address]Dr. Farhat Leal Calcium [Mass/Vol] 8.1 mg/dL Critically low 8.5-10.1 Th [facility] Comment on above: Performed By: #### P HOS, CMP ####[facility] Ztktqsggqo4150[address] [place], [place] [address]Dr. Farhat Leal Chloride [Moles/Vol] 100 mmol/L Normal 98-107 [facility] Comment on above: Performed By: #### P HOS, CMP ####[facility] Hdphzwirxn6888[address] [place], [place] [address]Dr. Farhat Leal CO2 [Moles/Vol] 34.2 mmol/L Critically high 21.0-32.0 [facility] Comment on above: Performed By: #### P HOS, CMP ####[facility] Tvpeixuqhv[address]83 [place] [address]Dr. Farhat Elvis Creatinine [Mass/Vol] 0.92 mg/dL Normal 0.70-1.30 [facility] Comment on above: Performed By: #### P HOS, CMP ####[facility] Haeshtvhbp2786 [place] [address]Dr. Farhat Elvis EGFR-AF DANISH >60 Normal >=60 [facility] Comment on above: Performed By: #### P HOS, CMP ####[facility] Hefhvskusi2099[address] [place], [place] [address]Dr. Madelynlorri Elvis EGFR-NON AF DANISH >60 Normal >=60 [facility] Comment on above: Performed By: #### P HOS, CMP ####[facility] Mbnjnvaghw6325[address] [place], [place] [address]Dr. Farhat Elvis Globulin (S) [Mass/Vol] 3.3 g/dL Normal [facility] Comment on above: Performed By: #### P HOS, CMP ####[facility] Qibesdxmww6898[address] [place], [place] [address]Dr. Farhat Elvis Glucose [Mass/Vol] 116 mg/dL Critically high 74-106 T [facility] Comment on above: Performed By: #### P HOS, CMP ####[facility] Eutvwwgieg401226 [address] [place], [place] [address]Dr. Farhat Elvis Potassium [Moles/Vol] 3.3 mmol/L Critically low 3.5-5.1 [facility] Comment on above: Performed By: #### P HOS, CMP ####[facility] Swvxvtafdt024[address] [place], [place] [address]Dr. Farhat Leal Protein [Mass/Vol] 5.0 g/dL Critically low 6.4-8.2 Th [facility] Comment on above: Performed By: #### P HOS, CMP ####[facility] Diulrgjwza456026 [address] [place], [place] [address]Dr. Farhat Leal Sodium [Moles/Vol] 136 mmol/L Normal 136-145 [facility] Comment on above: Performed By: #### P HOS, CMP ####[facility] Xewzippciq621326 [address] [place], [place] [address]Dr. Farhat Leal Urea nitrogen [Mass/Vol] 14.0 mg/dL Normal 7.0-18.0 [facility] Comment on above: Performed By: #### P HOS, CMP ####[facility] Vontornrpb735426 [address] [place], [place] [address]Dr. Farhat Leal Urea nitrogen/Creatinine [Mass ratio] 15.2 mg/mg Normal [facility] Comment on above: Performed By: #### P HOS, CMP ####[facility] Drhipnazbd303326 [address] [place], [place] [address]Dr. Farhat Leal PROTIMEon 12-29-2021 INR Coag (PPP) [Relative time] 1.26 {INR} Normal [facility] Comment on above: Performed By: #### P T ####[facility] Jjugpprfpr331326 [address] [place], [place] [address]Dr. Farhat Leal INR GUIDELINES SEE BELOW Normal [facility] Comment on above: Result Comment: MALINA RED INR: 2.0 - 3.0 CONDITIONS NOT LISTED BELOW 2.5 - 3.5 FOR PROSTHETIC HEART VALVE REPLACEMENT 2.5 - 3.5 RECURRENT THROMBOSIS Performed By: #### P T ####[facility] Jhzxrqhzuq9[address] [place], [place] [address]DrSkylar Leal PT Coag (PPP) [Time] 13.4 s Critically high 9.0-11.6 [facility] Comment on above: Performed By: #### P T ####[facility] Eanodjnafm36[address] [place], [place] [address]DrSkylar Leal XR MODIFIED BARIUM SWALLOWon 12-25-2021 XR MODIFIED BARIUM SWALLOW Normal [facility] FUNGAL CULTUREon 12-24-2021 Fungus (Mycology) Culture Final report Normal [facility] Comment on above: Performed By: #### C XFUN ####[facility] Vtvwgnlnnf3[address] [place], [place] [address]DrSkylar Leal Fungus Stain Final report Normal [facility] Comment on above: Performed By: #### C XFUN ####[facility] Csdicdzfre7217[address] [place], [place] [address]Dr. Farhat Leal Result 1 Comment Normal [facility] Comment on above: Result Comment: ANNI/ Calcofluor preparation: no fungus observed. Performed By: #### C XFUN ####[facility] Ucrecxdbwk2465[address] [place], [place] [address]Dr. Farhat Leal Result Comment: No y east or mold isolated after 4 weeks. VANCOMYCIN TROUGHon 12-21-19 VANCOMYCIN TROUGH 14.4 ug/ml Normal 5.0-20.0 [facility] Comment on above: Performed By: #### V ANCT ####[facility] Kerbqslaxp9917[address] [place], [place] [address]Dr. Farhat Leal CBC AUTO DIFFon 12-14-2021 BASO # 0.0 103/ul Normal 0.0-0.1 [facility] Comment on above: Performed By: #### C BC ####[facility] Ebhdropkbk341426 [address] [place], [place] [address]Dr. Farhat Leal Basophils/100 WBC (Bld) 0.2 % Normal 0.2-2.0 [facility] Comment on above: Performed By: #### C BC ####[facility] Tppuefrbtd6948[address] [place], [place] [address]Dr. Farhat Leal EO # 0.2 103/ul Normal 0.0-0.7 [facility] Comment on above: Performed By: #### C BC ####[facility] Pogszewmkk094[address] [place], [place] [address]Dr. Farhat Leal Eosinophils/100 WBC (Bld) 2.1 % Normal 0.9-7.0 [facility] Comment on above: Performed By: #### C BC ####[facility] Kqahulmbtk167[address] [place], [place] [address]Dr. Farhat Leal Erythrocyte distribution width (RBC) [Ratio] 18.2 % Critically high 11.0-15.0 [facility] Comment on above: Performed By: #### C BC ####[facility] Ueoggyotig[address] [place] [address]Dr. Farhat Leal Hematocrit (Bld) [Volume fraction] 25.8 % Critically low 42.0-54.0 [facility] Comment on above: Performed By: #### C BC ####[facility] Tuoeaxvbwf65[address] [place] [address]Dr. Farhat Leal Hemoglobin (Bld) [Mass/Vol] 8.0 g/dL Critically low 14.0-18.0 [facility] Comment on above: Performed By: #### C BC ####[facility] Fafestqaux[address] [place] [address]Dr. Farhat Leal IG # 0.08 10e3/ul Critically high 0.00-0.03 [facility] Comment on above: Performed By: #### C BC ####[facility] Uybzcifxbs[address] [place], [place] [address]Dr. Farhat Leal IG % 0.7 % Critically high 0.0-0.5 [facility] Comment on above: Performed By: #### C BC ####[facility] Burtkyfqoz3386[address] [place], [place] [address]Dr. Farhat Elvis LYMPH # 0.9 103/ul Critically low 1.2-3.8 [facility] Comment on above: Performed By: #### C BC ####[facility] Tcdaarxrye5[address] [place] [address]Dr. Farhat Leal Lymphocytes/100 WBC (Bld) 8.7 % Critically low 20.5-60.0 [facility] Comment on above: Performed By: #### C BC ####[facility] Xfevfzpnqf1342 [place] [address]Dr. Madelynlorri Leal MANUAL DIFF REQ NO Normal [facility] Comment on above: Performed By: #### C BC ####[facility] Dlgcxkphfo2925 [place] [address]Dr. Farhat Leal MCH (RBC) [Entitic mass] 30.0 pg Normal 25.9-34.0 [facility] Comment on above: Performed By: #### C BC ####[facility] Pukqlnwgbj7795 [place] [address]Dr. Farhat Elvis MCHC (RBC) [Mass/Vol] 31.0 g/dL Normal 29.9-35.2 [facility] Comment on above: Performed By: #### C BC ####[facility] Mdkydxbymu9787 [place] [address]Dr. Farhat Leal MCV (RBC) [Entitic vol] 96.6 fL Critically high 80.0-94.0 [facility] Comment on above: Performed By: #### C BC ####[facility] Asdahbejmn7568 [place] [address]Dr. Farhat Leal MONO # 0.7 103/ul Normal 0.3-0.8 [facility] Comment on above: Performed By: #### C BC ####[facility] Svlbattenp8170 [place] [address]Dr. Farhat Lael Monocytes/100 WBC (Bld) 6.7 % Normal 1.7-12.0 [facility] Comment on above: Performed By: #### C BC ####[facility] Idjqhsxnzs[address] [place], [place] [address]Dr. Farhat Leal NEUT # 8.8 103/ul Critically high 1.4-6.5 [facility] Comment on above: Performed By: #### C BC ####[facility] Dijeovmtcu53[address] [place], [place] [address]Dr. Farhat Leal Neutrophils/100 WBC (Bld) 81.6 % Critically high 43.0-75.0 [facility] Comment on above: Performed By: #### C BC ####[facility] Evhxplcbtm6[address] [place], [place] [address]Dr. Farhat Leal Platelet mean volume (Bld) [Entitic vol] 10.5 fL Normal 9.5-13.5 [facility] Comment on above: Performed By: #### C BC ####[facility] Kdtiwypvlz[address] [place], [place] [address]Dr. Farhat Leal PLT 285 103/ul Normal 150-450 [facility] Comment on above: Performed By: #### C BC ####[facility] Fpzpryacnh67[address] [place] [address]Dr. Madelynlorri Elvis RBC 2.67 106/ul Critically low 4.70-6.10 [facility] Comment on above: Performed By: #### C BC ####[facility] Hilmybqmlk74[address] [place] [address]Dr. Farhat Leal WBC 10.7 103/ul Normal 4.0-11.0 [facility] Comment on above: Performed By: #### C BC ####[facility] Ksshqwqgdy1726 [place] [address]Dr. Farhat Leal PROF CHEM 8 (BAS METB)on Anion gap [Moles/Vol] 12.4 mmol/L Normal [facility] Comment on above: Performed By: #### B MP ####[facility] Saudvlzirw0210[address] [place], [place] [address]Dr. Farhat Leal Calcium [Mass/Vol] 7.8 mg/dL Critically low 8.5-10.1 [facility] Comment on above: Performed By: #### B MP ####[facility] Tetirjiffi[address] [place], [place] [address]Dr. Farhat Leal Chloride [Moles/Vol] 102 mmol/L Normal 98-107 [facility] Comment on above: Performed By: #### B MP ####[facility] Xtzirkupll9848 [place] [address]Dr. Farhat Leal CO2 [Moles/Vol] 28.1 mmol/L Normal 21.0-32.0 [facility] Comment on above: Performed By: #### B MP ####[facility] Kkiaohyiuc8[address] [place], [place] [address]Dr. Madelynlorri Elvis Creatinine [Mass/Vol] 1.24 mg/dL Normal 0.70-1.30 [facility] Comment on above: Performed By: #### B MP ####[facility] Gxjsfwqmqs48[address] [place] [address]Dr. Farhat Leal EGFR-AF DANISH >60 Normal >=60 [facility] Comment on above: Performed By: #### B MP ####[facility] Hyzyzbktic[address] [place] [address]Dr. Farhat Leal EGFR-NON AF DANISH 57 mL/min/1.73m2 Critically low >=60 [facility] Comment on above: Performed By: #### B MP ####[facility] Jmezbpdger8068 [place] [address]Dr. Farhat Leal Glucose [Mass/Vol] 296 mg/dL Critically high 74-106 T [facility] Comment on above: Performed By: #### B MP ####[facility] Yhpwsigvik7219 [place] [address]Dr. Farhat Leal Potassium [Moles/Vol] 3.5 mmol/L Normal 3.5-5.1 [facility] Comment on above: Performed By: #### B MP ####[facility] Xrhwtbpufi70[address] [place], [place] [address]Dr. Farhat Leal Sodium [Moles/Vol] 139 mmol/L Normal 136-145 [facility] Comment on above: Performed By: #### B MP ####[facility] Ikpgoffcci38[address] [place] [address]Dr. Farhat Leal Urea nitrogen [Mass/Vol] 27.0 mg/dL Critically high 7.0-18.0 [facility] Comment on above: Performed By: #### B MP ####[facility] Tupdswjlbf[address] [place], [place] [address]Dr. Farhat Leal Urea nitrogen/Creatinine [Mass ratio] 21.8 mg/mg Normal [facility] Comment on above: Performed By: #### B MP ####[facility] Tce[address]mdnvu8[address] [place] [address]Dr. Farhat Leal PROTIMEon 12-14-2021 INR Coag (PPP) [Relative time] 3.36 {INR} Normal [facility] Comment on above: Performed By: #### P T ####[facility] [address]jvofc[address] [place] [address]Dr. Farhat Leal INR GUIDELINES SEE BELOW Normal [facility] Comment on above: Result Comment: MALINA RED INR: 2.0 - 3.0 CONDITIONS NOT LISTED BELOW 2.5 - 3.5 FOR PROSTHETIC HEART VALVE REPLACEMENT 2.5 - 3.5 RECURRENT THROMBOSIS Performed By: #### P T ####[facility] [address] [place], [place] [address]Id. Farhat Elvis PT Coag (PPP) [Time] 33.5 s Critically high 9.0-11.6 [facility] Comment on above: Performed By: #### P T ####[facility] [address]xy[address] [place], [place] [address]Md. Madelynlorri Elvis XR CHEST 1 Von 12-14-2021 XR CHEST 1 V Normal [facility] No Panel Informationon 12-01 BLANK _ [facility] Implant Date 04/22/2012 [facility] CHECKon AMS Duration (ms) 5 of 8 [facility] AMS Fallback Rate (bpm) DDIR [facility] AV Delay Adaptive Paced Minimum (ms) 300 ms [facility] AV Delay Adaptive Rate Maximum (bpm) 130 {beats}/min [facility] AV Delay Adaptive Rate Minimum (bpm) 70 {beats}/min [facility] AV Delay Adaptive Sensed Minimum (ms) 300 ms [facility] AV Delay Paced (ms) 300 ms [facility] AV Delay Sensed (ms) 300 ms [facility] Jaciel LV Pacing Polarity Unknown [facility] Jaciel LV Sensing Polarity Unknown [facility] Jaciel RA Pacing Amplitude (volts) 2.4 V [facility] Jaciel RA Pacing Polarity BI [facility] Jaciel RA Pacing Pulse Width (ms) 0.4 ms [facility] Jaciel RA Sensing Amplitude (mvolts) AUTO [facility] Jaciel RA Sensing Blanking Period (ms) 56 ms [facility] Jaciel RA Sensing Polarity BI [facility] Jaciel RA Sensing Refractory Period (ms) AUTO [facility] Jaciel RV Pacing Amplitude (volts) 3.4 V [facility] Jaciel RV Pacing Polarity BI [facility] Jaciel RV Pacing Pulse Width (ms) 0.4 ms [facility] Jaciel RV Sensing Amplitude (mvolts) AUTO [facility] Jaciel RV Sensing Blanking Period (ms) 30 ms [facility] Jaciel RV Sensing Polarity BI [facility] Jaciel RV Sensing Refractory Period (ms) 250 ms [facility] Hysteresis Rate (bpm) 60 {beats}/min [facility] Lead1 Mfg SUZETTE [facility] Lead2 Mfg SUZETTE [facility] Location RA [facility] Location RV [facility] Lower Rate (bpm) 60 {beats}/min [facility] Max Sensor Rate (bmp) 130 {beats}/min [facility] Model 422111 Monika Dominguez [facility] Model 219883 [facility] Model 117202 [facility] Pacemaker Dependent? NO [facility] PM-Device Mfg BIO [facility] PM-PMT Intervention ON [facility] PM-PVC Intervention ON [facility] PM-Rate Modulation Acceleration Reaction 4 s [facility] PM-Rate Modulation Deceleration 0.5 m [facility] PM-Rate Modulation [place] 23 [facility] PM-Rate Modulation Threshold Medium [facility] RA Bipolar Impedance ohms 448 ohm [facility] Rhythm AF with controlled ventricular rate. [facility] RV Bipolar Impedance ohms 390 ohm [facility] Serial Number [id number] [facility] Serial Number [id number] [facility] Serial Number [id number] [facility] Thresh RA Sensing Amplitude (mvolts) 2.4 mV [facility] Thresh RV Capture Amplitude (volts) 1.8 V [facility] Thresh RV Capture Duration (ms) 0.4 ms [facility] Thresh RV Sensing Amplitude (mvolts) 2.4 mV [facility] Tracking Rate (bpm) 160 {beats}/min [facility] BNPon 11-28-2021 Natriuretic peptide B (Bld) [Mass/Vol] 70952.0 pg/mL Critically high <=1,800.0 [facility] Comment on above: Performed By: #### C MP, BNP, CRP ####[facility] Mcxkdnlsky[address] [place], [place] [address]Dr. Farhat Leal CBC AUTO DIFFon 11-28-2021 BASO # 0.0 103/ul Normal 0.0-0.1 [facility] Comment on above: Performed By: #### C BC ####[facility] [address]hanbkiwrc[address] [place], [place] [address]Dr. Farhat Leal Basophils/100 WBC (Bld) 0.3 % Normal 0.2-2.0 [facility] Comment on above: Performed By: #### C BC ####[facility] [address]rmqxouogc[address] [place] [id number]. Farhat Leal EO # 0.1 103/ul Normal 0.0-0.7 [facility] Comment on above: Performed By: #### C BC ####[facility] Elnflfqlav20[address] [place] [id number]. Farhat Leal Eosinophils/100 WBC (Bld) 1.0 % Normal 0.9-7.0 [facility] Comment on above: Performed By: #### C BC ####[facility] Oqwssqgunh37[address] [place] [address]Dr. Farhat Leal Erythrocyte distribution width (RBC) [Ratio] 14.0 % Normal 11.0-15.0 [facility] Comment on above: Performed By: #### C BC ####[facility] Wgplhhziaz86[address] [place] [address]Dr. Farhat Leal Hematocrit (Bld) [Volume fraction] 27.6 % Critically low 42.0-54.0 [facility] Comment on above: Performed By: #### C BC ####[facility] Hiljctgqfd4306 [place] [id number]. Farhat Leal Hemoglobin (Bld) [Mass/Vol] 9.0 g/dL Critically low 14.0-18.0 [facility] Comment on above: Performed By: #### C BC ####[facility] Uyiyetyqot4992 [place] [id number]. Farhat Leal IG # 0.12 10e3/ul Critically high 0.00-0.03 The [facility] Comment on above: Performed By: #### C BC ####[facility] Cdmrivascf2441 [place] [phone]. Farhat Leal IG % 1.0 % Critically high 0.0-0.5 The [facility] Comment on above: Performed By: #### C BC ####[facility] Bnaaicxcpe[address] [place], [place] [address]Dr. Farhat Leal LYMPH # 1.2 103/ul Normal 1.2-3.8 [facility] Comment on above: Performed By: #### C BC ####[facility] Moslbxoksg4689 [place] [id number]. Farhat Elvis Lymphocytes/100 WBC (Bld) 9.9 % Critically low 20.5-60.0 [facility] Comment on above: Performed By: #### C BC ####[facility] Vlbnbseosp0578 [place] [id number]. Madelynlorri Leal MANUAL DIFF REQ NO Normal The [facility] Comment on above: Performed By: #### C BC ####[facility] Ibgrhncely7108 [place] [phone]. Madelynlorri Leal MCH (RBC) [Entitic mass] 30.0 pg Normal 25.9-34.0 [facility] Comment on above: Performed By: #### C BC ####[facility] Ipptflyzgz[address] [place], [place] [address]Dr. Madelynlorri Leal MCHC (RBC) [Mass/Vol] 32.6 g/dL Normal 29.9-35.2 [facility] Comment on above: Performed By: #### C BC ####[facility] Ybjsedaneo9504 [place] [id number]. Madelynlorri Leal MCV (RBC) [Entitic vol] 92.0 fL Normal 80.0-94.0 [facility] Comment on above: Performed By: #### C BC ####[facility] Iddthcmufb8741 [place] [phone]. Farhat Leal MONO # 1.1 103/ul Critically high 0.3-0.8 The [facility] Comment on above: Performed By: #### C BC ####[facility] Zpoychxpxu1819 [place] [phone]. Farhat Leal Monocytes/100 WBC (Bld) 9.3 % Normal 1.7-12.0 [facility] Comment on above: Performed By: #### C BC ####[facility] Ewotlsyyes[address] [place], [place] [address]Dr. Farhat Leal NEUT # 9.3 103/ul Critically high 1.4-6.5 The [facility] Comment on above: Performed By: #### C BC ####[facility] Ovhatqbruk2238 [place], [place] [address]Kl. Farhat Leal Neutrophils/100 WBC (Bld) 78.5 % Critically high 43.0-75.0 [facility] Comment on above: Performed By: #### C BC ####[facility] Vwdagoldqf1535 [place], [place] [address]Lw. Farhat Leal Platelet mean volume (Bld) [Entitic vol] 9.6 fL Normal 9.5-13.5 [facility] Comment on above: Performed By: #### C BC ####[facility] Lhpoixznym3670 [place] [phone]. Farhat Elvis PLT 357 103/ul Normal 150-450 [facility] Comment on above: Performed By: #### C BC ####[facility] Dledbyqvef9102 [place] [phone]. Madelynlorri Elvis RBC 3.00 106/ul Critically low 4.70-6.10 [facility] Comment on above: Performed By: #### C BC ####[facility] Utzappfwtu0690 [place] [phone]. Farhat Leal WBC 11.8 103/ul Critically high 4.0-11.0 [facility] Comment on above: Performed By: #### C BC ####[facility] Agoytflnbb6810 [place] [phone]. Farhat Leal CRPon 11-28-2021 CRP 20.9 mg/dL Critically high <=1.0 [facility] Comment on above: Performed By: #### C MP, BNP, CRP ####[facility] Votcvlkork0009 [place] [phone]. Farhat Elvis CULTURE OTHERon 11-28-2021 CULTURE OTHER Normal The [facility] Comment on above: Performed By: #### O THCX ####[facility] Hshkdyixlp7135 [place] [phone]. Farhat Leal PROF 14(COMP METB)on 022 Albumin [Mass/Vol] 1.4 g/dL Critically low 3.4-5.0 [facility] Comment on above: Performed By: #### C MP, BNP, CRP ####[facility] Xczauowxfi8088 [place] [address]Dr. Farhat Leal Albumin/Globulin [Mass ratio] 0.4 {ratio} Normal [facility] Comment on above: Performed By: #### C MP, BNP, CRP ####[facility] Xosgztfply9138 [place] [address]Dr. Farhat Leal ALP [Catalytic activity/Vol] 82 U/L Normal 46-116 [facility] Comment on above: Performed By: #### C MP, BNP, CRP ####[facility] Mosorvwrfb9004[address] [place], [place] [address]Dr. Farhat Leal ALT [Catalytic activity/Vol] 20 U/L Normal 16-63 [facility] Comment on above: Performed By: #### C MP, BNP, CRP ####[facility] Kxirfjxbin896[address] [place], [place] [address]Dr. Farhat Leal Anion gap [Moles/Vol] 13.0 mmol/L Normal [facility] Comment on above: Performed By: #### C MP, BNP, CRP ####[facility] Yjltspucpn[address] [place], [place] [address]Dr. Farhat Leal AST [Catalytic activity/Vol] 33 U/L Normal 15-37 [facility] Comment on above: Performed By: #### C MP, BNP, CRP ####[facility] Sokrmbmiyz79[address] [place], [place] [address]Dr. Farhat Leal Bilirubin [Mass/Vol] 0.7 mg/dL Normal 0.2-1.0 [facility] Comment on above: Performed By: #### C MP, BNP, CRP ####[facility] Bofrufpiwz908[address] [place], [place] [address]Dr. Farhat Leal Calcium [Mass/Vol] 8.4 mg/dL Critically low 8.5-10.1 [facility] Comment on above: Performed By: #### C MP, BNP, CRP ####[facility] Tqrsrmscoc2776[address] [place], [place] [address]Dr. Farhat Leal Chloride [Moles/Vol] 100 mmol/L Normal 98-107 [facility] Comment on above: Performed By: #### C MP, BNP, CRP ####[facility] Wcbwefvqqt2758 [place] [address]Dr. Farhat Leal CO2 [Moles/Vol] 23.7 mmol/L Normal 21.0-32.0 [facility] Comment on above: Performed By: #### C MP, BNP, CRP ####[facility] Ginwjzucjc35[address] [place], [place] [address]Dr. Farhat Leal Creatinine [Mass/Vol] 1.70 mg/dL Critically high 0.70-1.30 [facility] Comment on above: Performed By: #### C MP, BNP, CRP ####[facility] Fswgetbhvd5364[address] [place], [place] [address]Dr. Farhat Leal EGFR-AF DANISH 48 mL/min/1.73m2 Critically low >=60 [facility] Comment on above: Performed By: #### C MP, BNP, CRP ####[facility] Jfksvlqhob9[address] [place], [place] [address]Dr. Farhat Leal EGFR-NON AF DANISH 39 mL/min/1.73m2 Critically low >=60 [facility] Comment on above: Performed By: #### C MP, BNP, CRP ####[facility] Iavuzmbjpm3558 [place] [address]Dr. Farhat Leal Globulin (S) [Mass/Vol] 3.6 g/dL Normal [facility] Comment on above: Performed By: #### C MP, BNP, CRP ####[facility] Hwgwrrotzp7966 [place] [address]Dr. Farhat Leal Glucose [Mass/Vol] 232 mg/dL Critically high 74-106 [facility] Comment on above: Performed By: #### C MP, BNP, CRP ####[facility] Gtjvnmwzgw7354 [place] [address]Dr. Farhat Leal Potassium [Moles/Vol] 3.7 mmol/L Normal 3.5-5.1 [facility] Comment on above: Performed By: #### C MP, BNP, CRP ####[facility] Psieiiasuf3442 [place] [address]Dr. Farhat Leal Protein [Mass/Vol] 5.0 g/dL Critically low 6.4-8.2 Th [facility] Comment on above: Performed By: #### C MP, BNP, CRP ####[facility] Hutapydjjl6679 [place] [address]Dr. Farhat Leal Sodium [Moles/Vol] 133 mmol/L Critically low 136-145 Th [facility] Comment on above: Performed By: #### C MP, BNP, CRP ####[facility] Wqrfdjfprt15[address] [place], [place] [address]Dr. Farhat Leal Urea nitrogen [Mass/Vol] 52.0 mg/dL Critically high 7.0-18.0 [facility] Comment on above: Performed By: #### C MP, BNP, CRP ####[facility] Kntafmdyox033[address] [place], [place] [address]Dr. Farhat Leal Urea nitrogen/Creatinine [Mass ratio] 30.6 mg/mg Normal [facility] Comment on above: Performed By: #### C MP, BNP, CRP ####[facility] Mufrphlrnw65[address] [place], [place] [address]Dr. Farhat Leal PROTIMEon 11-28-2021 INR Coag (PPP) [Relative time] 1.29 {INR} Normal [facility] Comment on above: Performed By: #### P T ####[facility] Pkyujmklpx7[address] [place], [place] [address]Dr. Farhat Leal INR GUIDELINES SEE BELOW Normal The [facility] Comment on above: Result Comment: MALINA RED INR: 2.0 - 3.0 CONDITIONS NOT LISTED BELOW 2.5 - 3.5 FOR PROSTHETIC HEART VALVE REPLACEMENT 2.5 - 3.5 RECURRENT THROMBOSIS Performed By: #### P T ####[facility] Lgefnuqbxr60[address] [place], [place] [address]Dr. Farhat Leal PT Coag (PPP) [Time] 13.7 s Critically high 9.0-11.6 [facility] Comment on above: Performed By: #### P T ####[facility] Mrnjcenasu6182 [place] [address]Dr. Farhat Leal SED RATE WESTERGRENon 2021 SED RATE 77 mm/hr Critically high <=20 The [facility] Comment on above: Performed By: #### S EDR ####[facility] Nwrldlxlni230826 [address] [place], [place] [address]Dr. Farhat Leal XR CHEST 2 Von 11-28-2021 XR CHEST 2 V Normal [facility] BNPon 11-27-2021 Natriuretic peptide B (Bld) [Mass/Vol] 55882.0 pg/mL Critically high <=1,800.0 [facility] Comment on above: Performed By: #### B VOIP TECHNICIAN, CMP, CRP ####[facility] Ywvwkeabtr8[address] [place], [place] [address]Dr. Farhat Leal CBC AUTO DIFFon 11-27-2021 BASO # 0.0 103/ul Normal 0.0-0.1 [facility] Comment on above: Performed By: #### C BC ####[facility] Fghogrwvfs57[address] [place], [place] [address]Dr. Farhat Leal Basophils/100 WBC (Bld) 0.2 % Normal 0.2-2.0 [facility] Comment on above: Performed By: #### C BC ####[facility] Agusiometm7[address] [place], [place] [address]Dr. Farhat Leal EO # 0.2 103/ul Normal 0.0-0.7 [facility] Comment on above: Performed By: #### C BC ####[facility] Xpehiolsfn6939[address] [place], [place] [address]Dr. Farhat Leal Eosinophils/100 WBC (Bld) 1.9 % Normal 0.9-7.0 [facility] Comment on above: Performed By: #### C BC ####[facility] Mmtvkmcpxz[address] [place], [place] [address]Dr. Farhat Leal Erythrocyte distribution width (RBC) [Ratio] 13.9 % Normal 11.0-15.0 [facility] Comment on above: Performed By: #### C BC ####[facility] Fztbvepzlo0532 [place] [address]Dr. Farhat Leal Hematocrit (Bld) [Volume fraction] 28.7 % Critically low 42.0-54.0 [facility] Comment on above: Performed By: #### C BC ####[facility] Tqspckoiqh7513 [place] [address]Dr. Farhat Leal Hemoglobin (Bld) [Mass/Vol] 9.3 g/dL Critically low 14.0-18.0 [facility] Comment on above: Performed By: #### C BC ####[facility] Ccscztxhxh2095 [place] [address]Dr. Farhat Leal IG # 0.14 10e3/ul Critically high 0.00-0.03 [facility] Comment on above: Performed By: #### C BC ####[facility] Ouqdsuhmec4135 [place] [address]Dr. Farhat Leal IG % 1.2 % Critically high 0.0-0.5 The [facility] Comment on above: Performed By: #### C BC ####[facility] Zptipvxldo6516 [place] [address]Dr. Farhat Leal LYMPH # 1.1 103/ul Critically low 1.2-3.8 The [facility] Comment on above: Performed By: #### C BC ####[facility] Camiizwlrb8918 [place] [address]Dr. Farhat Leal Lymphocytes/100 WBC (Bld) 9.4 % Critically low 20.5-60.0 [facility] Comment on above: Performed By: #### C BC ####[facility] Eubkxljiji5[address] [place] [address]Dr. Farhat Leal MANUAL DIFF REQ NO Normal The [facility] Comment on above: Performed By: #### C BC ####[facility] Jjvihrwala220[address] [place], [place] [address]Dr. Farhat Leal MCH (RBC) [Entitic mass] 29.7 pg Normal 25.9-34.0 [facility] Comment on above: Performed By: #### C BC ####[facility] Osdzfzqqce0188 [place] [id number]. Farhat Leal MCHC (RBC) [Mass/Vol] 32.4 g/dL Normal 29.9-35.2 [facility] Comment on above: Performed By: #### C BC ####[facility] Rtwoqsnrze[address] [place], [place] [address]Dr. Farhat Leal MCV (RBC) [Entitic vol] 91.7 fL Normal 80.0-94.0 [facility] Comment on above: Performed By: #### C BC ####[facility] Oirpkkglok[address] [place], [place] [address]Dr. Farhat Leal MONO # 1.1 103/ul Critically high 0.3-0.8 [facility] Comment on above: Performed By: #### C BC ####[facility] Cbsfdmycxp5[address] [place], [place] [address]Dr. Farhat Leal Monocytes/100 WBC (Bld) 9.7 % Normal 1.7-12.0 [facility] Comment on above: Performed By: #### C BC ####[facility] Znyxcbyaaa0313[address] [place], [place] [address]Dr. Farhat Leal NEUT # 9.2 103/ul Critically high 1.4-6.5 The [facility] Comment on above: Performed By: #### C BC ####[facility] Uqjlsbiukj67[address] [place], [place] [address]Dr. Farhat Leal Neutrophils/100 WBC (Bld) 77.6 % Critically high 43.0-75.0 [facility] Comment on above: Performed By: #### C BC ####[facility] Auqvbfqvrh5[address] [place], [place] [address]Dr. Farhat Leal Platelet mean volume (Bld) [Entitic vol] 9.5 fL Normal 9.5-13.5 [facility] Comment on above: Performed By: #### C BC ####[facility] Glnbzgqjdr0120[address] [place], [place] [address]Dr. Farhat Leal PLT 375 103/ul Normal 150-450 [facility] Comment on above: Performed By: #### C BC ####[facility] Uezhcyoxpa6938 [place] [address]Dr. Farhat Leal RBC 3.13 106/ul Critically low 4.70-6.10 [facility] Comment on above: Performed By: #### C BC ####[facility] Junsidlcwz5891 [place] [address]Dr. Farhat Leal WBC 11.8 103/ul Critically high 4.0-11.0 [facility] Comment on above: Performed By: #### C BC ####[facility] Taqevifnsp6828 [place] [address]Dr. Farhat Leal CRPon 11-27-2021 CRP 24.5 mg/dL Critically high <=1.0 [facility] Comment on above: Performed By: #### B VOIP TECHNICIAN, CMP, CRP ####[facility] Fmvtpxxyil1338 [place] [address]Dr. Farhat Leal CULTURE OTHERon 11-27-2021 CULTURE OTHER Normal [facility] Comment on above: Performed By: #### O THCX ####[facility] Idcyqfduqy8209 [place] [phone]. Farhat Leal CULTURE WOUNDon 11-27-2021 CULTURE WOUND Normal [facility] Comment on above: Performed By: #### W OUNDCX ####[facility] Jmmwlbtfzv2747 [place] [id number]. Farhat Leal POINT OF CARE GLUCOSEon 11-15 Glucose [Mass/Vol] 147 mg/dL Critically high 74-106 [facility] Comment on above: Performed By: #### P OCGLUC ####[facility] Vxgueedkqi3007 [place] [id number]. Farhat Leal PROF 14(COMP METB)on 022 Albumin [Mass/Vol] 1.4 g/dL Critically low 3.4-5.0 [facility] Comment on above: Performed By: #### B VOIP TECHNICIAN, CMP, CRP ####[facility] Swvwidunez[address] [place], [place] [address]Dr. Farhat Leal Albumin/Globulin [Mass ratio] 0.4 {ratio} Normal [facility] Comment on above: Performed By: #### B VOIP TECHNICIAN, CMP, CRP ####[facility] Iqjsbjxpfi6753 [place] [address]Dr. Farhat Leal ALP [Catalytic activity/Vol] 82 U/L Normal 46-116 [facility] Comment on above: Performed By: #### B VOIP TECHNICIAN, CMP, CRP ####[facility] Zjmrdwdmnq3452 [place] [address]Dr. Farhat Leal ALT [Catalytic activity/Vol] 22 U/L Normal 16-63 [facility] Comment on above: Performed By: #### B VOIP TECHNICIAN, CMP, CRP ####[facility] Rubeafgaqd1798[address] [place], [place] [address]Dr. Farhat Leal Anion gap [Moles/Vol] 14.2 mmol/L Normal [facility] Comment on above: Performed By: #### B VOIP TECHNICIAN, CMP, CRP ####[facility] Przqkbphxw177[address] [place], [place] [address]Dr. Farhat Leal AST [Catalytic activity/Vol] 35 U/L Normal 15-37 [facility] Comment on above: Performed By: #### B VOIP TECHNICIAN, CMP, CRP ####[facility] Daffnivjbt8989[address] [place], [place] [address]Dr. Farhat Leal Bilirubin [Mass/Vol] 0.7 mg/dL Normal 0.2-1.0 [facility] Comment on above: Performed By: #### B VOIP TECHNICIAN, CMP, CRP ####[facility] Torincftru69[address] [place], [place] [address]Dr. Farhat Leal Calcium [Mass/Vol] 8.2 mg/dL Critically low 8.5-10.1 [facility] Comment on above: Performed By: #### B VOIP TECHNICIAN, CMP, CRP ####[facility] Rljsreolhx[address] [place], [place] [address]Dr. Farhat Leal Chloride [Moles/Vol] 99 mmol/L Normal 98-107 [facility] Comment on above: Performed By: #### B VOIP TECHNICIAN, CMP, CRP ####[facility] Swoneaczyj9[address] [place], [place] [address]Dr. Farhat Leal CO2 [Moles/Vol] 22.6 mmol/L Normal 21.0-32.0 [facility] Comment on above: Performed By: #### B VOIP TECHNICIAN, CMP, CRP ####[facility] Gweldfjphq3371 [place] [address]Dr. Farhat Leal Creatinine [Mass/Vol] 1.73 mg/dL Critically high 0.70-1.30 [facility] Comment on above: Performed By: #### B VOIP TECHNICIAN, CMP, CRP ####[facility] Qqotgkzcen7185 [place] [address]Dr. Farhat Leal EGFR-AF DANISH 47 mL/min/1.73m2 Critically low >=60 [facility] Comment on above: Performed By: #### B VOIP TECHNICIAN, CMP, CRP ####[facility] Agxsnfabce4615[address] [place], [place] [address]Dr. Farhat Leal EGFR-NON AF DANISH 38 mL/min/1.73m2 Critically low >=60 [facility] Comment on above: Performed By: #### B VOIP TECHNICIAN, CMP, CRP ####[facility] Ghqxdpjsdt098226 [address] [place], [place] [address]Dr. Farhat Leal Globulin (S) [Mass/Vol] 3.7 g/dL Normal [facility] Comment on above: Performed By: #### B VOIP TECHNICIAN, CMP, CRP ####[facility] Ismllesvfi2879[address] [place], [place] [address]Dr. Farhat Leal Glucose [Mass/Vol] 220 mg/dL Critically high 74-106 T [facility] Comment on above: Performed By: #### B VOIP TECHNICIAN, CMP, CRP ####[facility] Twgmhaibhj66[address] [place], [place] [address]Dr. Farhat Leal Potassium [Moles/Vol] 3.8 mmol/L Normal 3.5-5.1 [facility] Comment on above: Performed By: #### B VOIP TECHNICIAN, CMP, CRP ####[facility] Pydxppmprg9340[address] [place], [place] [address]Dr. Farhat Leal Protein [Mass/Vol] 5.1 g/dL Critically low 6.4-8.2 Th [facility] Comment on above: Performed By: #### B VOIP TECHNICIAN, CMP, CRP ####[facility] Mfoffnbxcb7377 [place] [address]Dr. Farhat Leal Sodium [Moles/Vol] 132 mmol/L Critically low 136-145 Th [facility] Comment on above: Performed By: #### B VOIP TECHNICIAN, CMP, CRP ####[facility] Uetmpgsbbg7635 [place] [address]Dr. Farhat Leal Urea nitrogen [Mass/Vol] 49.0 mg/dL Critically high 7.0-18.0 [facility] Comment on above: Performed By: #### B VOIP TECHNICIAN, CMP, CRP ####[facility] Sdiirvquyu39[address] [place], [place] [address]Dr. Farhat Leal Urea nitrogen/Creatinine [Mass ratio] 28.3 mg/mg Normal [facility] Comment on above: Performed By: #### B VOIP TECHNICIAN, CMP, CRP ####[facility] Qxusdsuhiz5049[address] [place], [place] [address]Dr. Farhat Leal PROTIMEon 11-27-2021 INR Coag (PPP) [Relative time] 1.25 {INR} Normal [facility] Comment on above: Performed By: #### P T ####[facility] Zokwdlgunq6475[address] [place], [place] [address]Dr. Farhat Leal INR GUIDELINES SEE BELOW Normal [facility] Comment on above: Result Comment: MALINA RED INR: 2.0 - 3.0 CONDITIONS NOT LISTED BELOW 2.5 - 3.5 FOR PROSTHETIC HEART VALVE REPLACEMENT 2.5 - 3.5 RECURRENT THROMBOSIS Performed By: #### P T ####[facility] Zlesecwtpy7507 [place] [address]Dr. Farhat Leal PT Coag (PPP) [Time] 13.3 s Critically high 9.0-11.6 [facility] Comment on above: Performed By: #### P T ####[facility] Jvideenmbc[address] [place], [place] [address]Dr. Farhat Leal SED RATE [facility] 2021 SED RATE 60 mm/hr Critically high <=20 [facility] Comment on above: Performed By: #### S EDR ####[facility] Kvvrnumcjz2787 [place] [address]Dr. Madelynlorri Elvis VANCOMYCIN TROUGHon 11-28-19 VANCOMYCIN TROUGH 21.2 ug/ml Critically high 5.0-20.0 Th e [facility] Comment on above: Performed By: #### V ANCT ####[facility] Ersfvaidqc18[address] [place], [place] [address]Dr. Madelynlorri Elvis XR CHEST 1 Von 11-27-2021 XR CHEST 1 V Normal [facility] BNPon 11-26-2021 Natriuretic peptide B (Bld) [Mass/Vol] 22218.0 pg/mL Critically high <=1,800.0 [facility] [facility] Comment on above: Performed By: #### B VOIP TECHNICIAN, CRP, CMP ####[facility] Qihbggeuap18[address] [place], [place] [address]Dr. Farhat Leal CBC AUTO DIFFon 11-26-2021 BASO # 0.0 103/ul Normal 0.0-0.1 [facility] Comment on above: Performed By: #### C BC ####[facility] Prwonoecyk23[address] [place], [place] [address]Dr. Farhat Leal Basophils/100 WBC (Bld) 0.2 % Normal 0.2-2.0 [facility] Comment on above: Performed By: #### C BC ####[facility] Ougynzvphl23[address] [place], [place] [address]Dr. Farhat Leal EO # 0.0 103/ul Normal 0.0-0.7 [facility] Comment on above: Performed By: #### C BC ####[facility] Kccfeoqycq649[address] [place], [place] [address]Dr. Farhat Leal Eosinophils/100 WBC (Bld) 0.3 % Critically low 0.9-7.0 [facility] Comment on above: Performed By: #### C BC ####[facility] Zwdrtccimu2377[address] [place], [place] [address]Dr. Farhat Leal Erythrocyte distribution width (RBC) [Ratio] 13.9 % Normal 11.0-15.0 [facility] Comment on above: Performed By: #### C BC ####[facility] Zonmxhktng7[address] [place] [address]Dr. Farhat Leal Hematocrit (Bld) [Volume fraction] 27.3 % Critically low 42.0-54.0 [facility] Comment on above: Performed By: #### C BC ####[facility] Osfsprujyg2643 [place] [address]DrSkylar Leal Hemoglobin (Bld) [Mass/Vol] 8.8 g/dL Critically low 14.0-18.0 [facility] Comment on above: Performed By: #### C BC ####[facility] Fqbtbfzhqv7[address] [place], [place] [address]DrSkylar Leal IG # 0.17 10e3/ul Critically high 0.00-0.03 [facility] Comment on above: Performed By: #### C BC ####[facility] Pdvcchtfwd566426 [address] [place], [place] [address]DrSkylar Leal IG % 1.2 % Critically high 0.0-0.5 [facility] Comment on above: Performed By: #### C BC ####[facility] Avbysqyrvd591226 [address] [place], [place] [address]DrSkylar Leal LYMPH # 0.7 103/ul Critically low 1.2-3.8 [facility] Comment on above: Performed By: #### C BC ####[facility] Cyqtblefel633226 [address] [place], [place] [address]DrSkylar Leal Lymphocytes/100 WBC (Bld) 4.8 % Critically low 20.5-60.0 [facility] Comment on above: Performed By: #### C BC ####[facility] Zzjffhhirv9975[address] [place], [place] [address]DrSkylar Leal MANUAL DIFF REQ NO Normal [facility] Comment on above: Performed By: #### C BC ####[facility] Yjmzikpkgh045[address] [place], [place] [address]DrSkylar Leal MCH (RBC) [Entitic mass] 29.9 pg Normal 25.9-34.0 [facility] Comment on above: Performed By: #### C BC ####[facility] Gysyrjzvmm7[address] [place] [id number]. Farhat Elvis MCHC (RBC) [Mass/Vol] 32.2 g/dL Normal 29.9-35.2 [facility] Comment on above: Performed By: #### C BC ####[facility] Asjrygsnbe2586 [place] [id number]. Farhat Leal MCV (RBC) [Entitic vol] 92.9 fL Normal 80.0-94.0 [facility] Comment on above: Performed By: #### C BC ####[facility] Aygdltgdgr8129 [place] [address]DrSkylar Leal MONO # 1.3 103/ul Critically high 0.3-0.8 [facility] Comment on above: Performed By: #### C BC ####[facility] Bbeabzselg764626 [address] [place], [place] [address]Dr. Farhat Leal Monocytes/100 WBC (Bld) 9.6 % Normal 1.7-12.0 [facility] Comment on above: Performed By: #### C BC ####[facility] Hhjxfgtgwk0409[address] [place], [place] [address]DrSkylar Leal NEUT # 11.4 103/ul Critically high 1.4-6.5 The [facility] Comment on above: Performed By: #### C BC ####[facility] Pbgqbxntri4965[address] [place], [place] [address]DrSkylar Leal Neutrophils/100 WBC (Bld) 83.9 % Critically high 43.0-75.0 [facility] Comment on above: Performed By: #### C BC ####[facility] Chsoddmrsg1150[address] [place], [place] [address]DrSkylar Leal Platelet mean volume (Bld) [Entitic vol] 9.6 fL Normal 9.5-13.5 [facility] Comment on above: Performed By: #### C BC ####[facility] Wuqmxxecob318[address] [place], [place] [address]Dr. Farhat Leal PLT 395 103/ul Normal 150-450 [facility] Comment on above: Performed By: #### C BC ####[facility] Nbsvcvdvff7989 [place] [address]Dr. Farhat Leal RBC 2.94 106/ul Critically low 4.70-6.10 [facility] Comment on above: Performed By: #### C BC ####[facility] Ndhjluadrt1067 [place] [address]Dr. Farhat Leal WBC 13.6 103/ul Critically high 4.0-11.0 [facility] Comment on above: Performed By: #### C BC ####[facility] Zanmunzldw2481 [place] [address]Dr. Madelynlorri Leal CRPon 11-26-2021 CRP [Mass/Vol] mg/L Critically high <=1.0 [facility] Comment on above: Performed By: #### B VOIP TECHNICIAN, CRP, CMP ####[facility] Ggvmdqfipu3880 [place] [address]Dr. Farhat Leal PROF 14(COMP METB)on 022 Albumin [Mass/Vol] 1.5 g/dL Critically low 3.4-5.0 [facility] Comment on above: Performed By: #### B VOIP TECHNICIAN, CRP, CMP ####[facility] Agqofzgpys4757 [place] [address]Dr. Madelynlorri Leal Albumin/Globulin [Mass ratio] 0.4 {ratio} Normal [facility] Comment on above: Performed By: #### B VOIP TECHNICIAN, CRP, CMP ####[facility] Albwybgsli[address] [place] [address]Dr. Farhat Leal ALP [Catalytic activity/Vol] 88 U/L Normal 46-116 [facility] Comment on above: Performed By: #### B VOIP TECHNICIAN, CRP, CMP ####[facility] Vafgbogqod5306 [place] [address]Dr. Farhat Leal ALT [Catalytic activity/Vol] 29 U/L Normal 16-63 [facility] Comment on above: Performed By: #### B VOIP TECHNICIAN, CRP, CMP ####[facility] Zuwfcougpr1299 [place] [address]Dr. Farhat Leal Anion gap [Moles/Vol] 13.3 mmol/L Normal [facility] Comment on above: Performed By: #### B VOIP TECHNICIAN, CRP, CMP ####[facility] Agruszgzfx83[address] [place] [address]Dr. Farhat Lael AST [Catalytic activity/Vol] 32 U/L Normal 15-37 [facility] Comment on above: Performed By: #### B VOIP TECHNICIAN, CRP, CMP ####[facility] Yiqpiwjlxj2998[address] [place], [place] [address]Dr. Farhat Leal Bilirubin [Mass/Vol] 0.6 mg/dL Normal 0.2-1.0 [facility] Comment on above: Performed By: #### B VOIP TECHNICIAN, CRP, CMP ####[facility] Hxzofleqbj962626 [address] [place], [place] [address]Dr. Farhat Leal Calcium [Mass/Vol] 8.0 mg/dL Critically low 8.5-10.1 [facility] Comment on above: Performed By: #### B VOIP TECHNICIAN, CRP, CMP ####[facility] Yycpkoaycm9781 [place] [address]Dr. Farhat Leal Chloride [Moles/Vol] 98 mmol/L Normal 98-107 [facility] Comment on above: Performed By: #### B VOIP TECHNICIAN, CRP, CMP ####[facility] Vydvfvniqi0106 [place] [address]Dr. Farhat Leal CO2 [Moles/Vol] 23.7 mmol/L Normal 21.0-32.0 The [facility] Comment on above: Performed By: #### B VOIP TECHNICIAN, CRP, CMP ####[facility] Fprwyvflog2006 [place] [address]Dr. Farhat Leal Creatinine [Mass/Vol] 2.08 mg/dL Critically high 0.70-1.30 [facility] Comment on above: Performed By: #### B VOIP TECHNICIAN, CRP, CMP ####[facility] Cwbflwkvtx6037 [place] [address]Dr. Farhat Leal EGFR-AF DANISH 38 mL/min/1.73m2 Critically low >=60 [facility] Comment on above: Performed By: #### B VOIP TECHNICIAN, CRP, CMP ####[facility] Ovtucjrqbq2571 [place] [address]Dr. Farhat Leal EGFR-NON AF DANISH 31 mL/min/1.73m2 Critically low >=60 [facility] Comment on above: Performed By: #### B VOIP TECHNICIAN, CRP, CMP ####[facility] Jgkgdvwlox3034 [place] [address]Dr. Farhat Leal Globulin (S) [Mass/Vol] 3.7 g/dL Normal [facility] Comment on above: Performed By: #### B VOIP TECHNICIAN, CRP, CMP ####[facility] Nkhdgqrdxe808[address] [place], [place] [address]Dr. Farhat Leal Glucose [Mass/Vol] 315 mg/dL Critically high 74-106 T [facility] Comment on above: Performed By: #### B VOIP TECHNICIAN, CRP, CMP ####[facility] Zkwqtdggys696826 [address] [place], [place] [address]Dr. Farhat Leal Potassium [Moles/Vol] 4.0 mmol/L Normal 3.5-5.1 [facility] Comment on above: Performed By: #### B VOIP TECHNICIAN, CRP, CMP ####[facility] Ukbkpcykyl258326 [address] [place], [place] [address]Dr. Farhat Leal Protein [Mass/Vol] 5.2 g/dL Critically low 6.4-8.2 Th [facility] Comment on above: Performed By: #### B VOIP TECHNICIAN, CRP, CMP ####[facility] Oyhxsgkamx458726 [address] [place], [place] [address]Dr. Farhat Leal Sodium [Moles/Vol] 131 mmol/L Critically low 136-145 Th [facility] Comment on above: Performed By: #### B VOIP TECHNICIAN, CRP, CMP ####[facility] Aydqjalvfm2874[address] [place], [place] [address]Dr. Farhat Leal Urea nitrogen [Mass/Vol] 50.0 mg/dL Critically high 7.0-18.0 [facility] Comment on above: Performed By: #### B VOIP TECHNICIAN, CRP, CMP ####[facility] Mpinckrbvn6057[address] [place], [place] [address]Dr. Farhat Leal Urea nitrogen/Creatinine [Mass ratio] 24.0 mg/mg Normal [facility] Comment on above: Performed By: #### B VOIP TECHNICIAN, CRP, CMP ####[facility] Bovxwczcyv9179[address] [place], [place] [address]Dr. Farhat Leal PROTIMEon 11-26-2021 INR Coag (PPP) [Relative time] 1.31 {INR} Normal [facility] Comment on above: Performed By: #### P T ####[facility] Agfmbvlftn4870[address] [place], [place] [address]Dr. Madelynlorri Leal INR GUIDELINES SEE BELOW Normal [facility] Comment on above: Result Comment: MALINA RED INR: 2.0 - 3.0 CONDITIONS NOT LISTED BELOW 2.5 - 3.5 FOR PROSTHETIC HEART VALVE REPLACEMENT 2.5 - 3.5 RECURRENT THROMBOSIS Performed By: #### P T ####[facility] Ovjmdavykl069[address] [place], [place] [address]Dr. Farhat Leal PT Coag (PPP) [Time] 13.9 s Critically high 9.0-11.6 The [facility] Comment on above: Performed By: #### P T ####[facility] Gkityvpzxg95[address] [place], [place] [address]Dr. Madelynlorri Leal SED RATE ROYSTONERGREN 2021 SED RATE 87 mm/hr Critically high <=20 [facility] Comment on above: Performed By: #### S EDR ####[facility] Hchpxwrlcx6597[address] [place], [place] [address]Dr. Farhat Leal BNPon 11-25-2021 Natriuretic peptide B (Bld) [Mass/Vol] 70925.0 pg/mL Critically high <=1,800.0 The [facility] Comment on above: Performed By: #### C MP, BNP, CRP ####[facility] Korigeanui506426 [address] [place], [place] [address]Dr. Farhat Elvis CBC AUTO DIFFon 11-25-2021 BASO # 0.0 103/ul Normal 0.0-0.1 [facility] Comment on above: Performed By: #### C BC ####[facility] Uiulihixuz3292 [place] [id number]. Farhat Leal Basophils/100 WBC (Bld) 0.4 % Normal 0.2-2.0 [facility] Comment on above: Performed By: #### C BC ####[facility] Yemhfhwgoy5812 [place] [id number]. Farhat Leal EO # 0.1 103/ul Normal 0.0-0.7 [facility] Comment on above: Performed By: #### C BC ####[facility] Zkgrrdtmsm[address] [place], [place] [id number]. Farhat Leal Eosinophils/100 WBC (Bld) 1.2 % Normal 0.9-7.0 [facility] Comment on above: Performed By: #### C BC ####[facility] Dtzobkpbio0490[address] [place], [place] [address]Dr. Farhat Leal Erythrocyte distribution width (RBC) [Ratio] 13.7 % Normal 11.0-15.0 [facility] Comment on above: Performed By: #### C BC ####[facility] Omgzflhlzq9438[address] [place], [place] [address]Dr. Farhat Leal Hematocrit (Bld) [Volume fraction] 29.6 % Critically low 42.0-54.0 [facility] Comment on above: Performed By: #### C BC ####[facility] Layzqwssfc3499[address] [place], [place] [address]Dr. Farhat Leal Hemoglobin (Bld) [Mass/Vol] 9.3 g/dL Critically low 14.0-18.0 [facility] Comment on above: Performed By: #### C BC ####[facility] Wuoztgtbic813[address] [place], [place] [address]Dr. Farhat Leal IG # 0.15 10e3/ul Critically high 0.00-0.03 [facility] Comment on above: Performed By: #### C BC ####[facility] Zdxtfftxpv045[address] [place], [place] [address]Dr. Farhat Leal IG % 1.4 % Critically high 0.0-0.5 [facility] Comment on above: Performed By: #### C BC ####[facility] Xxdffixuve8402 [place] [address]Dr. Farhat Leal LYMPH # 0.8 103/ul Critically low 1.2-3.8 [facility] Comment on above: Performed By: #### C BC ####[facility] Kcbnuxmjku2984 [place] [address]Dr. Farhat Leal Lymphocytes/100 WBC (Bld) 7.3 % Critically low 20.5-60.0 [facility] Comment on above: Performed By: #### C BC ####[facility] Lmnivdqfay4891 [place] [address]Dr. Farhat Leal MANUAL DIFF REQ NO Normal [facility] Comment on above: Performed By: #### C BC ####[facility] Vqglhtigbq4835 [place] [phone]. Farhat Leal MCH (RBC) [Entitic mass] 29.3 pg Normal 25.9-34.0 [facility] Comment on above: Performed By: #### C BC ####[facility] Vitkqgaslo1098 [place] [address]Dr. Farhat Leal MCHC (RBC) [Mass/Vol] 31.4 g/dL Normal 29.9-35.2 [facility] Comment on above: Performed By: #### C BC ####[facility] Hyubpnonrd5736 [place] [address]Dr. Farhat Leal MCV (RBC) [Entitic vol] 93.4 fL Normal 80.0-94.0 [facility] Comment on above: Performed By: #### C BC ####[facility] Jobhutpekg5522 [place] [address]Dr. Farhat Lael MONO # 1.3 103/ul Critically high 0.3-0.8 [facility] Comment on above: Performed By: #### C BC ####[facility] Lmatoiwrjd5022 [place] [address]Dr. Farhat Leal Monocytes/100 WBC (Bld) 12.3 % Critically high 1.7-12.0 [facility] Comment on above: Performed By: #### C BC ####[facility] Uncotoiumo2290 [place] [address]Dr. Farhat Leal NEUT # 8.4 103/ul Critically high 1.4-6.5 [facility] Comment on above: Performed By: #### C BC ####[facility] Sfwkshimcd7653 [place] [address]Dr. Farhat Leal Neutrophils/100 WBC (Bld) 77.4 % Critically high 43.0-75.0 [facility] Comment on above: Performed By: #### C BC ####[facility] Cheisqqopp6609 [place] [address]Dr. Farhat Leal Platelet mean volume (Bld) [Entitic vol] 9.8 fL Normal 9.5-13.5 [facility] Comment on above: Performed By: #### C BC ####[facility] Mwgocrmfts5949 [place] [address]Dr. Farhat Leal PLT 390 103/ul Normal 150-450 [facility] Comment on above: Performed By: #### C BC ####[facility] Tyllyxnmih8604 [place] [address]Dr. Farhat Leal RBC 3.17 106/ul Critically low 4.70-6.10 [facility] Comment on above: Performed By: #### C BC ####[facility] Hiqymlxrbs8541 [place] [address]Dr. Farhat Leal WBC 10.9 103/ul Normal 4.0-11.0 [facility] Comment on above: Performed By: #### C BC ####[facility] Yskefdrbcc1751 [place] [address]Dr. Farhat Elvis CRPon 11-25-2021 CRP 27.2 mg/dL Critically high <=1.0 [facility] Comment on above: Performed By: #### C MP, BNP, CRP ####[facility] Rdpfsaugfk4644 [place] [address]Dr. Farhat Leal PROF 14(COMP METB)on 022 Albumin [Mass/Vol] 1.5 g/dL Critically low 3.4-5.0 [facility] Comment on above: Performed By: #### C MP, BNP, CRP ####[facility] Bcovswdrnm7534 [place] [address]Dr. Farhat Leal Albumin/Globulin [Mass ratio] 0.4 {ratio} Normal [facility] Comment on above: Performed By: #### C MP, BNP, CRP ####[facility] Ukywzmbbom58[address] [place], [place] [address]Dr. Farhat Leal ALP [Catalytic activity/Vol] 86 U/L Normal 46-116 [facility] Comment on above: Performed By: #### C MP, BNP, CRP ####[facility] Kkuflufsjs8460[address] [place], [place] [address]Dr. Farhat Leal ALT [Catalytic activity/Vol] 34 U/L Normal 16-63 [facility] Comment on above: Performed By: #### C MP, BNP, CRP ####[facility] Ahoavdxcfl2686[address] [place], [place] [address]Dr. Farhat Leal Anion gap [Moles/Vol] 17.8 mmol/L Normal [facility] Comment on above: Performed By: #### C MP, BNP, CRP ####[facility] Ivhxkqecol4494[address] [place], [place] [address]Dr. Farhat Leal AST [Catalytic activity/Vol] 48 U/L Critically high 15-37 [facility] Comment on above: Performed By: #### C MP, BNP, CRP ####[facility] Xyhygiagun5184[address] [place], [place] [address]Dr. Farhat Leal Bilirubin [Mass/Vol] 0.8 mg/dL Normal 0.2-1.0 [facility] Comment on above: Performed By: #### C MP, BNP, CRP ####[facility] Gjdafeorxg27[address] [place], [place] [address]Dr. Farhat Leal Calcium [Mass/Vol] 8.3 mg/dL Critically low 8.5-10.1 [facility] Comment on above: Performed By: #### C MP, BNP, CRP ####[facility] Xhxfqvtcoh8536 [place] [address]Dr. Farhat Elvis Chloride [Moles/Vol] 97 mmol/L Critically low 98-107 [facility] Comment on above: Performed By: #### C MP, BNP, CRP ####[facility] Strophuyhn4533 [place] [address]Dr. Farhat Leal CO2 [Moles/Vol] 23.0 mmol/L Normal 21.0-32.0 [facility] Comment on above: Performed By: #### C MP, BNP, CRP ####[facility] Ujvrcdygka5173 [place] [address]Dr. Farhat Elvis Creatinine [Mass/Vol] 1.68 mg/dL Critically high 0.70-1.30 [facility] Comment on above: Performed By: #### C MP, BNP, CRP ####[facility] Lgfzxmfwix2793 [place] [address]Dr. Farhat Leal EGFR-AF DANISH 48 mL/min/1.73m2 Critically low >=60 [facility] Comment on above: Performed By: #### C MP, BNP, CRP ####[facility] Pzonbtheay7091 [place] [address]Dr. Farhat Elvis EGFR-NON AF DANISH 40 mL/min/1.73m2 Critically low >=60 [facility] Comment on above: Performed By: #### C MP, BNP, CRP ####[facility] Lxrueydpzv5709 [place] [address]Dr. Farhat Leal Globulin (S) [Mass/Vol] 3.9 g/dL Normal [facility] Comment on above: Performed By: #### C MP, BNP, CRP ####[facility] Hxcrpxttwd7827 [place] [address]Dr. Madelynlorri Elvis Glucose [Mass/Vol] 282 mg/dL Critically high 74-106 T [facility] Comment on above: Performed By: #### C MP, BNP, CRP ####[facility] Lqoucvpzhc2559 [place] [address]Dr. Farhat Leal Potassium [Moles/Vol] 4.8 mmol/L Normal 3.5-5.1 [facility] Comment on above: Performed By: #### C MP, BNP, CRP ####[facility] Katptucqqj5399 [place] [address]Dr. Farhat Leal Protein [Mass/Vol] 5.4 g/dL Critically low 6.4-8.2 Th [facility] Comment on above: Performed By: #### C MP, BNP, CRP ####[facility] Ebzbpdmadb6[address] [place], [place] [address]Dr. Farhat Leal Sodium [Moles/Vol] 133 mmol/L Critically low 136-145 Th [facility] Comment on above: Performed By: #### C MP, BNP, CRP ####[facility] Qowhlmdlfi594[address] [place], [place] [address]Dr. Farhat Leal Urea nitrogen [Mass/Vol] 40.0 mg/dL Critically high 7.0-18.0 [facility] Comment on above: Performed By: #### C MP, BNP, CRP ####[facility] Qdllxfkjlo771526 [address] [place], [place] [address]Dr. Farhat Leal Urea nitrogen/Creatinine [Mass ratio] 23.8 mg/mg Normal [facility] Comment on above: Performed By: #### C MP, BNP, CRP ####[facility] Givlatiwso5065[address] [place], [place] [address]Dr. Farhat Leal PROTIMEon 11-25-2021 INR Coag (PPP) [Relative time] 1.48 {INR} Normal [facility] Comment on above: Performed By: #### P T ####[facility] Imnpgjsspp9[address] [place], [place] [address]Dr. Farhat Leal INR GUIDELINES SEE BELOW Normal [facility] Comment on above: Result Comment: MALINA RED INR: 2.0 - 3.0 CONDITIONS NOT LISTED BELOW 2.5 - 3.5 FOR PROSTHETIC HEART VALVE REPLACEMENT 2.5 - 3.5 RECURRENT THROMBOSIS Performed By: #### P T ####[facility] Khulukxhun2069[address] [place], [place] [address]Dr. Farhat Leal PT Coag (PPP) [Time] 15.6 s Critically high 9.0-11.6 [facility] Comment on above: Performed By: #### P T ####[facility] Zvqxunndse19[address] [place], [place] [address]Dr. Farhat Leal SED RATE WESTERGRENon 2021 SED RATE 76 mm/hr Critically high <=20 [facility] Comment on above: Performed By: #### S EDR ####[facility] Nqwwtbedor53[address] [place], [place] [address]Dr. Farhat Leal BNPon 11-24-2021 Natriuretic peptide B (Bld) [Mass/Vol] 38430.0 pg/mL Critically high <=1,800.0 [facility] Comment on above: Performed By: #### B VOIP TECHNICIAN, CMP, CRP ####[facility] Pzmctnhlcp[address] [place], [place] [address]Dr. Farhat Leal CBC AUTO DIFFon 11-24-2021 BASO # 0.0 103/ul Normal 0.0-0.1 [facility] Comment on above: Performed By: #### C BC ####[facility] Xponpsxiob0824[address] [place], [place] [address]Dr. Farhat Leal Basophils/100 WBC (Bld) 0.3 % Normal 0.2-2.0 [facility] Comment on above: Performed By: #### C BC ####[facility] Prlshvljus[address] [address] [place], [place] [address]Dr. Farhat Leal EO # 0.2 103/ul Normal 0.0-0.7 The [facility] Comment on above: Performed By: #### C BC ####[facility] Fwsqdtyhcf8627[address] [place], [place] [address]Dr. Farhat Leal Eosinophils/100 WBC (Bld) 1.2 % Normal 0.9-7.0 The [facility] Comment on above: Performed By: #### C BC ####[facility] Xdfiunxzzs4249[address] [place], [place] [address]Dr. Farhat Leal Erythrocyte distribution width (RBC) [Ratio] 13.5 % Normal 11.0-15.0 The [facility] Comment on above: Performed By: #### C BC ####[facility] Vi[address]cvtj[address] [place] [address]Dr. Farhat Leal Hematocrit (Bld) [Volume fraction] 31.1 % Critically low 42.0-54.0 The [facility] Comment on above: Performed By: #### C BC ####[facility] Dswprdmwhp[address] [place] [address]Dr. Farhat Leal Hemoglobin (Bld) [Mass/Vol] 10.0 g/dL Critically low 14.0-18.0 The [facility] Comment on above: Performed By: #### C BC ####[facility] Tmkbbrwecg719626 [address] [place], [place] [address]Dr. Farhat Leal IG # 0.13 10e3/ul Critically high 0.00-0.03 [facility] Comment on above: Performed By: #### C BC ####[facility] Hrsoxekarc018926 [address] [place], [place] [address]Dr. Farhat Leal IG % 1.0 % Critically high 0.0-0.5 The [facility] Comment on above: Performed By: #### C BC ####[facility] Yregmisqtj980426 [address] [place], [place] [address]Dr. Farhat Leal LYMPH # 0.7 103/ul Critically low 1.2-3.8 The [facility] Comment on above: Performed By: #### C BC ####[facility] Gdycxvrdou338426 [address] [place], [place] [address]Dr. Farhat Leal Lymphocytes/100 WBC (Bld) 4.9 % Critically low 20.5-60.0 The [facility] Comment on above: Performed By: #### C BC ####[facility] Roehbalcby454326 [address] [place], [place] [address]Dr. Farhat Leal MANUAL DIFF REQ NO Normal The [facility] Comment on above: Performed By: #### C BC ####[facility] Jlrrejjdup919126 [address] [place], [place] [address]Dr. Farhat Leal MCH (RBC) [Entitic mass] 29.6 pg Normal 25.9-34.0 The [facility] Comment on above: Performed By: #### C BC ####[facility] Qctgjxuxzb66[address] [place] [id number]. Farhat Leal MCHC (RBC) [Mass/Vol] 32.2 g/dL Normal 29.9-35.2 The [facility] Comment on above: Performed By: #### C BC ####[facility] Qudhhuuqzz74[address] [place], [place] [id number]. Madelynlorri Leal MCV (RBC) [Entitic vol] 92.0 fL Normal 80.0-94.0 The [facility] Comment on above: Performed By: #### C BC ####[facility] Okqclesrla915085 [address] [place], [place] [id number]. Farhat Elvis MONO # 1.3 103/ul Critically high 0.3-0.8 The [facility] Comment on above: Performed By: #### C BC ####[facility] Uteldpqrbm609626 [address] [place], [place] [address]Dr. Farhat Leal Monocytes/100 WBC (Bld) 9.6 % Normal 1.7-12.0 The [facility] Comment on above: Performed By: #### C BC ####[facility] Pdvcodclcm039726 [address] [place], [place] [address]Dr. Madelynlorri Leal NEUT # 11.2 103/ul Critically high 1.4-6.5 The [facility] Comment on above: Performed By: #### C BC ####[facility] Ntxlnvrdzz417526 [address] [place], [place] [address]Dr. Farhat Leal Neutrophils/100 WBC (Bld) 83.0 % Critically high 43.0-75.0 The [facility] Comment on above: Performed By: #### C BC ####[facility] Ingsdhhukb024126 [address] [place], [place] [address]Dr. Farhat Leal Platelet mean volume (Bld) [Entitic vol] 9.5 fL Normal 9.5-13.5 The [facility] Comment on above: Performed By: #### C BC ####[facility] Tdckhjjini973626 [address] [place], [place] [address]Dr. Farhat Leal PLT 395 103/ul Normal 150-450 The [facility] Comment on above: Performed By: #### C BC ####[facility] Vpmttzxmkz2908 [place] [id number]. Farhat Leal RBC 3.38 106/ul Critically low 4.70-6.10 The [facility] Comment on above: Performed By: #### C BC ####[facility] Ybnsyxkuee6722 [place] [id number]. Farhat Leal WBC 13.4 103/ul Critically high 4.0-11.0 The [facility] Comment on above: Performed By: #### C BC ####[facility] Fiporaqfwt4718 [place] [phone]. Farhat Leal CRPon 11-24-2021 CRP 27.8 mg/dL Critically high <=1.0 [facility] Comment on above: Performed By: #### B VOIP TECHNICIAN, CMP, CRP ####[facility] Dmgibhqrzv9030[address] [place], [place] [id number]. Farhat Leal CULTURE ANAEROBICon 11-25-19 22 CULTURE ANAEROBIC Culture Observations : NO GROWTH OF ANAEROBES AT 72 HOURS. Normal The [facility] Comment on above: Performed By: #### A NACX ####[facility] Pgvcponopl004226 [address] [place], [place] [address]Dr. Farhat Leal CULTURE URINEon 11-24-2021 CULTURE URINE Culture Observations : NO GROWTH. Normal The [facility] Comment on above: Performed By: #### U RCX ####[facility] Xzsvuedulr357026 [address] [place], [place] [address]Dr. Farhat Leal ECHOCARDIO M/2D COMPLETEon 1 ECHOCARDIO M/2D COMPLETE Normal The [facility] ER URINE PROFILEon 2 Bilirubin Ql (U) Negative Normal NEGATIVE The [facility] Comment on above: Performed By: #### E RUR ####[facility] Yyfkkobcja387326 [address] [place], [place] [address]Dr. Farhat Leal Clarity (U) CLEAR Normal CLEAR The [facility] Comment on above: Performed By: #### E RUR ####[facility] Iehxndxbgf733[address] [place], [place] [id number]. Farhat Leal Color (U) YELLOW Normal YELLOW The [facility] Comment on above: Performed By: #### E RUR ####[facility] Livclkbycd4[address] [place] [address]Dr. Farhat LOPEZ A micrscopic examination will be performed if indicated. Normal The [facility] Comment on above: Performed By: #### E RUR ####[facility] Lptwjqdtjx22[address] [place] [address]Dr. Farhat Leal Glucose Ql (U) Negative Normal NEGATIVE The [facility] Comment on above: Performed By: #### E RUR ####[facility] Hrzfgiswwc806426 [address] [place], [place] [address]Dr. Farhat Leal Hemoglobin Ql (U) Negative Normal NEGATIVE The [facility] Comment on above: Performed By: #### E RUR ####[facility] Zniqhzlkjw1119[address] [place], [place] [address]Dr. Farhat Leal Ketones Ql (U) TRACE Abnormal NEGATIVE The [facility] Comment on above: Performed By: #### E RUR ####[facility] Hzoozdvfzu981726 [address] [place], [place] [address]Dr. Farhat Leal LEUKOCYTES Negative Normal NEGATIVE [facility] Comment on above: Performed By: #### E RUR ####[facility] Txrsceziei935426 [address] [place], [place] [address]Dr. Farhat Leal Nitrite Ql (U) Negative Normal NEGATIVE The [facility] Comment on above: Performed By: #### E RUR ####[facility] Onhyyjezlj998526 [address] [place], [place] [address]Dr. Farhat Leal pH (U) 5.5 [pH] Normal 5-9 [facility] Comment on above: Performed By: #### E RUR ####[facility] Muuqoazifu8315[address] [place], [place] [address]Dr. Farhat Leal SPEC GRAVITY 1.015 Normal 1.005-<=1.02 5 [facility] Comment on above: Performed By: #### E RUR ####[facility] Vbrclvtaue141726 [address] [place], [place] [address]Dr. Farhat Leal UA PROTEIN Negative Normal NEGATIVE/ TRACE The [facility] Comment on above: Performed By: #### E RUR ####[facility] Ztukkdprce[address] [place] [address]Dr. Farhat Leal UR MICRO IND NOT INDICATED Normal The [facility] Comment on above: Performed By: #### E RUR ####[facility] Sjdjskvxpj3256 [place] [id number]. Farhat Leal Urobilinogen Qn (U) 0.2 {Boyd'U}/dL Normal 0.2 - 1. 0 The [facility] Comment on above: Performed By: #### E RUR ####[facility] Mfmewkulxv[address] [place] [address]Dr. Farhat Leal GRAM STAINon 11-24-2021 COMMENTS NO ORGANISMS OBSERVED Normal The [facility] Comment on above: Performed By: #### G STAIN ####[facility] Leiwtglyvt517526 [address] [place], [place] [address]Dr. Farhat Leal DIPHTHEROIDS Normal The [facility] Comment on above: Performed By: #### G STAIN ####[facility] Eztfmjcxqp626326 [address] [place], [place] [address]Dr. Farhat Leal EPITHELIALS Normal The [facility] Comment on above: Performed By: #### G STAIN ####[facility] Zigrshxhqn620426 [address] [place], [place] [address]Dr. Farhat Leal FUNGAL ELEMENTS Normal The [facility] Comment on above: Performed By: #### G STAIN ####[facility] Tkraxdfnmt[address] [place] [address]Dr. Farhat Leal GRAM NEG BACILLI FEW Normal The [facility] Comment on above: Performed By: #### G STAIN ####[facility] Oercraglsm3[address] [place] [address]Dr. Farhat Leal GRAM NEG BACILLI Normal The [facility] Comment on above: Performed By: #### G STAIN ####[facility] Lbqgrtjvqo8402 [place] [address]Dr. Farhat Leal GRAM NEG DIPPLOCOCCI Normal The [facility] Comment on above: Performed By: #### G STAIN ####[facility] Krtcsypwgl5[address] [place] [id number]. Farhat Leal GRAM POS BACILLI Normal The [facility] Comment on above: Performed By: #### G STAIN ####[facility] Whenidhiqn2647 [place] [address]Dr. Farhat Leal GRAM POSITIVE COCCI Normal The [facility] Comment on above: Performed By: #### G STAIN ####[facility] Gveehztklv4094 [place] [phone]. Farhat Leal GRAM POSITIVE COCCI FEW Normal The [facility] Comment on above: Performed By: #### G STAIN ####[facility] Mkqhooobdv1536[address] [place], [place] [address]Dr. Farhat Leal GRAM STAIN SOURCE #1 Rt foot abscess Normal The [facility] Comment on above: Performed By: #### G STAIN ####[facility] Adjbyplvyr5280[address] [place], [place] [address]Dr. Farhat Leal GRAM STAIN SOURCE #2 Rt foot abscess Normal The [facility] Comment on above: Performed By: #### G STAIN ####[facility] Zaxywhygpo504[address] [place], [place] [address]Dr. Farhat Leal GRAM STAIN SOURCE RT CALCANEOUS Normal The [facility] Comment on above: Performed By: #### G STAIN ####[facility] Salqogalvb6778[address] [place], [place] [address]Dr. Farhat Leal GRAM STAIN SOURCE RT ACHILLES TENDON Normal The [facility] Comment on above: Performed By: #### G STAIN ####[facility] Hmukoewzcw3275 [place] [address]Dr. Farhat Leal GS_DIPTH Normal The [facility] Comment on above: Performed By: #### G STAIN ####[facility] Qiszehlwob4[address] [place] [address]Dr. Farhat Leal WBC NONE SEEN Normal The [facility] Comment on above: Performed By: #### G STAIN ####[facility] Lfahjyixsi6[address] [place] [address]Dr. Farhat Leal WBC RARE Normal The [facility] Comment on above: Performed By: #### G STAIN ####[facility] Oejukuuhwe36[address] [place] [address]Dr. Farhat Leal POINT OF CARE GLUCOSEon 11-15 Glucose [Mass/Vol] 236 mg/dL Critically high 74-106 [facility] Comment on above: Performed By: #### P OCGLUC ####[facility] Kmjtilmfzm37[address] [place] [address]Dr. Farhat Leal Glucose [Mass/Vol] 331 mg/dL Critically high 74-106 [facility] Comment on above: Performed By: #### P OCGLUC ####[facility] Zmiclylghf6936 [place] [address]Dr. Farhat Leal PROF 14(COMP METB)on 022 Albumin [Mass/Vol] 1.6 g/dL Critically low 3.4-5.0 [facility] Comment on above: Performed By: #### B VOIP TECHNICIAN, CMP, CRP ####[facility] Xsjgpggxuq2674 [place] [address]Dr. Farhat Leal Albumin/Globulin [Mass ratio] 0.4 {ratio} Normal [facility] Comment on above: Performed By: #### B VOIP TECHNICIAN, CMP, CRP ####[facility] Zwaybgxlpo8007 [place] [address]Dr. Farhat Leal ALP [Catalytic activity/Vol] 94 U/L Normal 46-116 [facility] Comment on above: Performed By: #### B VOIP TECHNICIAN, CMP, CRP ####[facility] Vkschcyvir2378 [place] [address]Dr. Fahrat Leal ALT [Catalytic activity/Vol] 49 U/L Normal 16-63 [facility] Comment on above: Performed By: #### B VOIP TECHNICIAN, CMP, CRP ####[facility] Bbztiwzqbn2350 [place] [address]Dr. Farhat Leal Anion gap [Moles/Vol] 12.5 mmol/L Normal [facility] Comment on above: Performed By: #### B VOIP TECHNICIAN, CMP, CRP ####[facility] Mqvlzackdg5417 [place] [address]Dr. Farhat Leal AST [Catalytic activity/Vol] 102 U/L Critically high 15-37 The [facility] Comment on above: Performed By: #### B VOIP TECHNICIAN, CMP, CRP ####[facility] Vkmkjzntff3533 [place] [address]Dr. Farhat Leal Bilirubin [Mass/Vol] 0.8 mg/dL Normal 0.2-1.0 [facility] Comment on above: Performed By: #### B VOIP TECHNICIAN, CMP, CRP ####[facility] Xsxcbkikdi8678 [place] [address]Dr. Farhat Leal Calcium [Mass/Vol] 8.4 mg/dL Critically low 8.5-10.1 Th e [facility] Comment on above: Performed By: #### B VOIP TECHNICIAN, CMP, CRP ####[facility] Laobihzxos245[address] [place], [place] [address]Dr. Farhat Leal Chloride [Moles/Vol] 96 mmol/L Critically low 98-107 The [facility] Comment on above: Performed By: #### B VOIP TECHNICIAN, CMP, CRP ####[facility] Szmjkvdrnv0179[address] [place], [place] [address]Dr. Farhat Leal CO2 [Moles/Vol] 24.8 mmol/L Normal 21.0-32.0 The [facility] Comment on above: Performed By: #### B VOIP TECHNICIAN, CMP, CRP ####[facility] Byyvrxoxwg554926 [address] [place], [place] [address]Dr. Farhat Leal Creatinine [Mass/Vol] 1.36 mg/dL Critically high 0.70-1.30 The [facility] Comment on above: Performed By: #### B VOIP TECHNICIAN, CMP, CRP ####[facility] Wqdoqwwdcr093626 [address] [place], [place] [address]Dr. Farhat Leal EGFR-AF DANISH >60 Normal >=60 The [facility] Comment on above: Performed By: #### B VOIP TECHNICIAN, CMP, CRP ####[facility] Uuguncemqo192526 [address] [place], [place] [address]Dr. Farhat Leal EGFR-NON AF DANISH 51 mL/min/1.73m2 Critically low >=60 The [facility] Comment on above: Performed By: #### B VOIP TECHNICIAN, CMP, CRP ####[facility] Lgfkkibzyn961626 [address] [place], [place] [address]Dr. Farhat Leal Globulin (S) [Mass/Vol] 4.1 g/dL Normal [facility] Comment on above: Performed By: #### B VOIP TECHNICIAN, CMP, CRP ####[facility] Yvumbyzsly056826 [address] [place], [place] [address]Dr. Farhat Leal Glucose [Mass/Vol] 204 mg/dL Critically high 74-106 T [facility] Comment on above: Performed By: #### B VOIP TECHNICIAN, CMP, CRP ####[facility] Eixznqedol043826 [address] [place], [place] [address]Dr. Farhat Leal Potassium [Moles/Vol] 4.3 mmol/L Normal 3.5-5.1 [facility] Comment on above: Performed By: #### B VOIP TECHNICIAN, CMP, CRP ####[facility] Euejzlnlar377326 [address] [place], [place] [address]Dr. Farhat Leal Protein [Mass/Vol] 5.7 g/dL Critically low 6.4-8.2 [facility] Comment on above: Performed By: #### B VOIP TECHNICIAN, CMP, CRP ####[facility] Ubjolplfkw728026 [address] [place], [place] [address]Dr. Farhat Leal Sodium [Moles/Vol] 129 mmol/L Critically low 136-145 Th [facility] Comment on above: Performed By: #### B VOIP TECHNICIAN, CMP, CRP ####[facility] Jsrwkujqjv399026 [address] [place], [place] [address]Dr. Farhat Leal Urea nitrogen [Mass/Vol] 41.0 mg/dL Critically high 7.0-18.0 [facility] Comment on above: Performed By: #### B VOIP TECHNICIAN, CMP, CRP ####[facility] Hhfeyvnpry153926 [address] [place], [place] [address]Dr. Farhat Leal Urea nitrogen/Creatinine [Mass ratio] 30.1 mg/mg Normal [facility] Comment on above: Performed By: #### B VOIP TECHNICIAN, CMP, CRP ####[facility] Tklimsucmf6720[address] [place], [place] [address]Dr. Farhat Leal PROTIMEon 11-24-2021 INR Coag (PPP) [Relative time] 2.20 {INR} Normal The [facility] Comment on above: Performed By: #### P T ####[facility] Quxyowpzan39[address] [place] [address]Dr. Farhat Leal INR GUIDELINES SEE BELOW Normal The [facility] Comment on above: Result Comment: MALINA RED INR: 2.0 - 3.0 CONDITIONS NOT LISTED BELOW 2.5 - 3.5 FOR PROSTHETIC HEART VALVE REPLACEMENT 2.5 - 3.5 RECURRENT THROMBOSIS Performed By: #### P T ####[facility] Xtvecxijjh824[address] [place], [place] [address]Dr. Farhat Leal PT Coag (PPP) [Time] 22.6 s Critically high 9.0-11.6 The [facility] Comment on above: Performed By: #### P T ####[facility] Yhroocflxk892426 [address] [place], [place] [address]Dr. Farhat Leal SED RATE [facility] 2021 SED RATE 80 mm/hr Critically high <=20 [facility] Comment on above: Performed By: #### S EDR ####[facility] Zgeiqszybj3427[address] [place], [place] [address]Dr. Farhat Leal BLOOD CULTURE ID PANELon A. baumannii Not detected Normal NOT DETECTED The [facility] Comment on above: Performed By: #### B CID2 ####[facility] Bawpvrmzgr4010[address] [place], [place] [address]Dr. Farhat Leal Bacteriodes fragilis Not detected Normal NOT DETECTED The [facility] Comment on above: Performed By: #### B CID2 ####[facility] Flkmpffnxf569926 [address] [place], [place] [address]Dr. Farhat Leal BCID CONTROLS PASSED Normal The [facility] Comment on above: Performed By: #### B CID2 ####[facility] Xewvvfcnrw501926 [address] [place], [place] [address]Dr. Farhat Leal BCIDBTHD BLOOD CULTURE BOTTLE INFORMATION Normal The [facility] Comment on above: Performed By: #### B CID2 ####[facility] Mzcgvkhyyr301826 [address] [place], [place] [address]Dr. Farhat Leal BCIDHD1 ANTIMICROBIAL RESISTANCE GENES Normal The [facility] Comment on above: Performed By: #### B CID2 ####[facility] Nkxzvqedlx2705 [place] [address]Dr. Farhat Leal BCIDHD2 SEE BELOW Normal [facility] Comment on above: Result Comment: Note : Antimicrobial resitance can occur via multiple mechanisms. A Not Detected result for the [employer] antomicrobial resistance gene assays does not indicate antimicrobial susceptibility. Subculturing is required for species identification and susceptibility testing of isolates. Performed By: #### B CID2 ####[facility] Raxpwuedag3075[address] [place], [place] [address]Dr. Farhat Leal BCIDHD3 Positive Normal [facility] Comment on above: Performed By: #### B CID2 ####[facility] Kebjvhxtwe4269[address] [place], [place] [address]Dr. Farhat Leal BCIDHD4 Negative Normal [facility] Comment on above: Performed By: #### B CID2 ####[facility] Wakenwhrxl4919[address] [place], [place] [address]Dr. Farhat Elvis BCIDHD5 YEAST Normal The [facility] Comment on above: Performed By: #### B CID2 ####[facility] Hrpdemjgfn473826 [address] [place], [place] [address]Dr. Madelynlorri Elvis Bottle Set: Set 1 Normal The [facility] Comment on above: Performed By: #### B CID2 ####[facility] Xucwriurix5920[address] [place], [place] [address]Dr. Madelynlorri Elvis Bottle: Aerobic Normal The [facility] Comment on above: Performed By: #### B CID2 ####[facility] Wtkdichroa985626 [address] [place], [place] [address]Dr. Farhat Leal C. neoformans/gattii Not detected Normal NOT DETECTED The [facility] Comment on above: Performed By: #### B CID2 ####[facility] Ymdegtnojm3987[address] [place], [place] [address]Dr. Farhat Leal Disha albicans Not detected Normal NOT DETECTED The [facility] Comment on above: Performed By: #### B CID2 ####[facility] Dejxkhfpwt7755[address] [place], [place] [address]Dr. Farhat eLal Disha auris Not detected Normal NOT DETECTED The [facility] Comment on above: Performed By: #### B CID2 ####[facility] Mpvcefcdyi6539[address] [place], [place] [address]Dr. Yilorri Leal Disha glabrata Not detected Normal NOT DETECTED [facility] Comment on above: Performed By: #### B CID2 ####[facility] Mqdpqhkwem6805 [place] [address]Dr. Farhat Leal Disha Krusei Not detected Normal NOT DETECTED The [facility] Comment on above: Performed By: #### B CID2 ####[facility] Wovxyabhwq6774[address] [place], [place] [address]Dr. Farhat Leal Disha Parapsilosis Not detected Normal NOT DETECTED The [facility] Comment on above: Performed By: #### B CID2 ####[facility] Zekwssdfld475[address] [place], [place] [address]Dr. Farhat Leal Disha Tropicalis Not detected Normal NOT DETECTED [facility] Comment on above: Performed By: #### B CID2 ####[facility] Iwywbgzapw087[address] [place], [place] [address]Dr. Farhat Leal CTX-M Resistant Gene Not Applicable Normal NOT DETECTE D [facility] Comment on above: Performed By: #### B CID2 ####[facility] Urkssurxus448[address] [place], [place] [address]Dr. Yilorri Leal E. Cloacae complex Not detected Normal NOT DETECTED [facility] Comment on above: Performed By: #### B CID2 ####[facility] Vjvgfiuzhh386226 [address] [place], [place] [address]Dr. Farhat Leal E. faecalis Not detected Normal NOT DETECTED The [facility] Comment on above: Performed By: #### B CID2 ####[facility] Zdwcwtvtil488326 [address] [place], [place] [address]Dr. Yilan Leal E. faecium Not detected Normal NOT DETECTED The [facility] Comment on above: Performed By: #### B CID2 ####[facility] Mmyclhyaxn154626 [address] [place], [place] [address]Dr. Yilan Leal Enterobacteriaceae Not detected Normal NOT DETECTED [facility] Comment on above: Performed By: #### B CID2 ####[facility] Oipgtfzcrm170826 [address] [place], [place] [address]Dr. Madelynlorri Leal Escherichia coli Not detected Normal NOT DETECTED The [facility] Comment on above: Performed By: #### B CID2 ####[facility] Bxzmkzrllx654726 [address] [place], [place] [address]Dr. Farhat Leal H. influenzae Not detected Normal NOT DETECTED The [facility] Comment on above: Performed By: #### B CID2 ####[facility] Jrttiqjpye553626 [address] [place], [place] [address]Dr. Farhat Leal IMP Resistant Gene Not Applicable Normal NOT DETECTED The [facility] Comment on above: Performed By: #### B CID2 ####[facility] Zwsmxzrais252226 [address] [place], [place] [address]Dr. Farhat Leal K. oxytoca Not detected Normal NOT DETECTED [facility] Comment on above: Performed By: #### B CID2 ####[facility] Dglbmjxpnt209726 [address] [place], [place] [address]Dr. Madelynlorri Leal K. pneumoniae Not detected Normal NOT DETECTED The [facility] Comment on above: Performed By: #### B CID2 ####[facility] Jldeojomnt960726 [address] [place], [place] [address]Dr. Madelynlorri Leal Klebsiella aerogenes Not detected Normal NOT DETECTED The [facility] Comment on above: Performed By: #### B CID2 ####[facility] Ikokrynqaa296626 [address] [place], [place] [address]Dr. Farhat Leal KPC Resistant Gene Not Applicable Normal NOT DETECTED The [facility] Comment on above: Performed By: #### B CID2 ####[facility] Kvcjaotrrv290826 [address] [place], [place] [address]Dr. Farhat Leal List. monocytogenes Not detected Normal NOT DETECTED [facility] Comment on above: Performed By: #### B CID2 ####[facility] Rvsrzzhvnf782226 [address] [place], [place] [address]Dr. Farhat Leal Mcr-1 Resistant Gene Not Applicable Normal NOT DETECTE D [facility] Comment on above: Performed By: #### B CID2 ####[facility] Lafyytjvwy1247 [place] [address]Dr. Madelynlorri Elvis mecA/C Not Applicable Normal NOT DETECTED The [facility] Comment on above: Performed By: #### B CID2 ####[facility] Cpgzjscpuk1006 [place] [id number]. Farhat Leal mecA/C MREJ Detected Abnormal NOT DETECTED The [facility] Comment on above: Performed By: #### B CID2 ####[facility] Hiwjmdvcvp131326 [address] [place], [place] [address]Dr. Farhat Leal N. meningitidis Not detected Normal NOT DETECTED The [facility] Comment on above: Performed By: #### B CID2 ####[facility] Rsfeiddozf261826 [address] [place], [place] [address]Dr. Farhat Leal NDM Resistant Gene Not Applicable Normal NOT DETECTED The [facility] Comment on above: Performed By: #### B CID2 ####[facility] Mkxaqcbfqh768726 [address] [place], [place] [address]Dr. Farhat Leal Oxa-48-like Not Applicable Normal NOT DETECTED The [facility] Comment on above: Performed By: #### B CID2 ####[facility] Ieukdyixgo713426 [address] [place], [place] [address]Dr. Madelynlorri Leal Proteus Not detected Normal NOT DETECTED [facility] Comment on above: Performed By: #### B CID2 ####[facility] Tlpyofcbcy939826 [address] [place], [place] [address]Dr. Farhat Leal Pseud. aeruginosa Not detected Normal NOT DETECTED The [facility] Comment on above: Performed By: #### B CID2 ####[facility] Ygzfsfmhch797926 [address] [place], [place] [address]Dr. Farhat Leal S. maltophilia Not detected Normal NOT DETECTED The [facility] Comment on above: Performed By: #### B CID2 ####[facility] Zriybrrxni0914 [place] [address]Dr. Farhat Leal Salmonella Not detected Normal NOT DETECTED [facility] Comment on above: Performed By: #### B CID2 ####[facility] Xbtnnlrtzw8786 [place] [id number]. Farhat Leal Seratia marcescens Not detected Normal NOT DETECTED [facility] Comment on above: Performed By: #### B CID2 ####[facility] Hraaizuzee2404[address] [place], [place] [id number]. Farhat Leal Site: Rt Hand Normal The [facility] Comment on above: Performed By: #### B CID2 ####[facility] Dwsdxglytq556926 [address] [place], [place] [address]Dr. Farhat Leal Staph. aureus Detected Abnormal NOT DETECTED The [facility] Comment on above: Performed By: #### B CID2 ####[facility] Fhhkgdljbd616926 [address] [place], [place] [address]Dr. Farhat Leal Staph. epidermidis Not detected Normal NOT DETECTED [facility] Comment on above: Performed By: #### B CID2 ####[facility] Jjaxwlhbnp687726 [address] [place], [place] [address]Dr. Farhat Leal Staph. lugdunensis Not detected Normal NOT DETECTED [facility] Comment on above: Performed By: #### B CID2 ####[facility] Ivyrkaanve833226 [address] [place], [place] [address]Dr. Farhat Leal Staphylococcus Detected Abnormal NOT DETECTED The [facility] Comment on above: Performed By: #### B CID2 ####[facility] Ggdmkeiuxh030[address] [place], [place] [address]Dr. Farhat Leal Strep. agalactiae Not detected Normal NOT DETECTED The [facility] Comment on above: Performed By: #### B CID2 ####[facility] Iphurxaknm322126 [address] [place], [place] [address]Dr. Farhat Leal Strep. pneumoniae Not detected Normal NOT DETECTED The [facility] Comment on above: Performed By: #### B CID2 ####[facility] Moogmkcfvp431326 [address] [place], [place] [address]Dr. Farhat Leal Strep. pyogenes Not detected Normal NOT DETECTED The [facility] Comment on above: Performed By: #### B CID2 ####[facility] Mfedjgwgan093326 [address] [place], [place] [address]Dr. Farhat Leal Streptococcus Not detected Normal NOT DETECTED The [facility] Comment on above: Performed By: #### B CID2 ####[facility] Uikwnxfvgs5750 [place] [address]Dr. Farhat Leal Teodoro/B Resist. Gene Not Applicable Normal NOT DETECTED The [facility] Comment on above: Performed By: #### B CID2 ####[facility] Trccwjorzw6733 [place] [address]Dr. Farhat Leal VIM Resistant Gene Not Applicable Normal NOT DETECTED The [facility] Comment on above: Performed By: #### B CID2 ####[facility] Ecvvqbwnqm4575 [place] [address]Dr. Farhat Leal BNPon 11-23-2021 Natriuretic peptide B (Bld) [Mass/Vol] 40481.0 pg/mL Critically high <=1,800.0 [facility] Comment on above: Performed By: #### C MP, CMADM, BNP ####[facility] Pqzurdunjh0472 [place] [address]Dr. Farhat Leal CARDIAC AMANDA ADMITon 022 CK [Catalytic activity/Vol] 41 U/L Normal 39-308 The [facility] Comment on above: Performed By: #### C MP, CMADM, BNP ####[facility] Inzhkepylp8751 [place] [address]Dr. lorri Leal CK.MB [Mass/Vol] 0.98 ng/mL Normal <=3.60 The [facility] Comment on above: Performed By: #### C MP, CMADM, BNP ####[facility] Njohxmfhwt4805 [place] [address]Dr. Formerly Named [facility] Elvis HSTROP 30.1 pg/mL Normal 4.0-76.1 The [facility] Comment on above: Result Comment: CUT- OFF POINTS HAVE BEEN ESTABLISHED BASED ON THE FOURTH UNIVERSAL DEFINITIONS OF MYOCARDIALINFARCTION. THE UPPER REFERENCE LIMIT (URL) OF TROPONIN, DEFINED THE 99TH PERCENTILE OFcTnI DISTRIBUTION IN A REFERENCE POPULATION, HAS BEEN CONFIRMED THE DECISION THRESHOLDFOR W[place] DIAGNOSIS. Performed By: #### C MP, CMADM, BNP ####[facility] Lfqaxamjml2554 [place] [phone]. Farhat Leal VALERIA 160 ng/mL Critically high 16-96 The [facility] Comment on above: Performed By: #### C MP, CMADM, BNP ####[facility] Tfaqtzjryb8855 [place] [phone]. Farhat Leal CBC AUTO DIFFon 11-23-2021 BASO # 0.0 103/ul Normal 0.0-0.1 The [facility] Comment on above: Performed By: #### C BC ####[facility] Fuermrxjhd6734 [place] [address]Dr. Farhat Leal Basophils/100 WBC (Bld) 0.2 % Normal 0.2-2.0 The [facility] Comment on above: Performed By: #### C BC ####[facility] Iyqgonboqg8255[address] [place], [place] [address]Dr. Farhat Leal EO # 0.0 103/ul Normal 0.0-0.7 The [facility] Comment on above: Performed By: #### C BC ####[facility] Efghyeuwho511526 [address] [place], [place] [address]Dr. Farhat Leal Eosinophils/100 WBC (Bld) 0.1 % Critically low 0.9-7.0 The [facility] Comment on above: Performed By: #### C BC ####[facility] Khpwdspwqf791626 [address] [place], [place] [address]Dr. Farhat Leal Erythrocyte distribution width (RBC) [Ratio] 13.4 % Normal 11.0-15.0 The [facility] Comment on above: Performed By: #### C BC ####[facility] Yhkldlnxcf861526 [address] [place], [place] [address]Dr. Farhat Leal Hematocrit (Bld) [Volume fraction] 31.6 % Critically low 42.0-54.0 The [facility] Comment on above: Performed By: #### C BC ####[facility] Bgnrnqexcg357[address] [place], [place] [address]Dr. Farhat Leal Hemoglobin (Bld) [Mass/Vol] 10.4 g/dL Critically low 14.0-18.0 The [facility] Comment on above: Performed By: #### C BC ####[facility] Gurzllqkkx2121 [place] [phone]. Madelynlorri Leal IG # 0.11 10e3/ul Critically high 0.00-0.03 [facility] Comment on above: Performed By: #### C BC ####[facility] Zkwdpbaztw0038 [place] [phone]. Farhat Leal IG % 0.7 % Critically high 0.0-0.5 [facility] Comment on above: Performed By: #### C BC ####[facility] Hefoxucuwg6688 [place] [address]Dr. Farhat Leal LYMPH # 0.5 103/ul Critically low 1.2-3.8 [facility] Comment on above: Performed By: #### C BC ####[facility] Noipnrmank6648 [place] [address]DrSkylar Leal Lymphocytes/100 WBC (Bld) 2.8 % Critically low 20.5-60.0 [facility] Comment on above: Performed By: #### C BC ####[facility] Nwafnsslwo7338 [place] [address]Dr. Farhat Leal MANUAL DIFF REQ NO Normal [facility] Comment on above: Performed By: #### C BC ####[facility] Wtcztudncd4623 [place] [address]Dr. Farhat Leal MCH (RBC) [Entitic mass] 29.8 pg Normal 25.9-34.0 [facility] Comment on above: Performed By: #### C BC ####[facility] Wqylgqsymy4615 [place] [phone]. Farhat Leal MCHC (RBC) [Mass/Vol] 32.9 g/dL Normal 29.9-35.2 The [facility] Comment on above: Performed By: #### C BC ####[facility] Pjrvtqotei2907 [place] [address]Dr. Farhat Leal MCV (RBC) [Entitic vol] 90.5 fL Normal 80.0-94.0 [facility] Comment on above: Performed By: #### C BC ####[facility] Rffzsjybqg1929 [place], [place] [address]Lz. Farhat Leal MONO # 1.3 103/ul Critically high 0.3-0.8 The [facility] Comment on above: Performed By: #### C BC ####[facility] Ipplogqiqg4417 [place] [phone]. Farhat Leal Monocytes/100 WBC (Bld) 8.3 % Normal 1.7-12.0 The [facility] Comment on above: Performed By: #### C BC ####[facility] Zeuphawkdo5400 [place] [address]Dr. Farhat Leal NEUT # 13.9 103/ul Critically high 1.4-6.5 The [facility] Comment on above: Performed By: #### C BC ####[facility] Qppeehoaab6663 [place] [phone]. Farhat Leal Neutrophils/100 WBC (Bld) 87.9 % Critically high 43.0-75.0 The [facility] Comment on above: Performed By: #### C BC ####[facility] Icswujderm6812 [place] [phone]. Farhat Leal Platelet mean volume (Bld) [Entitic vol] 9.3 fL Critically low 9.5-13.5 The [facility] Comment on above: Performed By: #### C BC ####[facility] Qfefcskoik3918 [place] [address]Dr. Farhat Leal PLT 390 103/ul Normal 150-450 The [facility] Comment on above: Performed By: #### C BC ####[facility] Wetdvqlqhs7990 [place] [address]Dr. Farhat Leal RBC 3.49 106/ul Critically low 4.70-6.10 The [facility] Comment on above: Performed By: #### C BC ####[facility] Gkgcvrrlop3635 [place] [address]Dr. Farhat Leal WBC 15.9 103/ul Critically high 4.0-11.0 The [facility] Comment on above: Performed By: #### C BC ####[facility] Jauxatncgs7451 [place] [phone]. Farhat Leal CT HEAD WO CONon 11-23-2021 CT HEAD WO CON Normal [facility] CULTURE BLOODon 11-23-2021 Microscopic examination of blood, culture Culture Observations: NO GROWTH AT 5 DAYS. Normal The [facility] Comment on above: Performed By: #### B LDCX2 ####[facility] Ewztnrcrzx4110 [place] [address]Dr. Farhat Leal Covid-19 PCR (CVDTBH)on SARS-CoV-2 (COVID-19) RNA JOSH+probe Ql (Unsp spec) Not detected Normal NOT DETECTED The [facility] Comment on above: Result [...] for this test is supported by the Underwriting Account Representative of Health and Human Service's declaration that [...] be used). Performed By: #### C VDTBH ####[facility] Wegwlyccvl1631 [place] [phone]. Farhat Leal LACTATE/LACTIC ACIDon 2021 Lactate [Moles/Vol] 1.3 mmol/L Normal 0.4-1.9 [facility] Comment on above: Performed By: #### L ACT ####[facility] Nvbawijdsz5880 [place] [phone]. Farhat Leal Lactate [Moles/Vol] 1.3 mmol/L Normal 0.4-1.9 [facility] Comment on above: Performed By: #### L ACT ####[facility] Kfqmwaaigp5429 [place] [address]Dr. Farhat Leal POINT OF CARE GLUCOSEon Glucose [Mass/Vol] 252 mg/dL Critically high 74-106 [facility] Comment on above: Performed By: #### P OCGLUC ####[facility] Nulcgwscrc3745 [place] [address]Dr. Farhat Leal PROF 14(COMP METB)on 022 Albumin [Mass/Vol] 1.6 g/dL Critically low 3.4-5.0 [facility] Comment on above: Performed By: #### C MP, CMADM, BNP ####[facility] Musurtjfrk9919 [place] [address]Dr. Farhat Leal Albumin/Globulin [Mass ratio] 0.4 {ratio} Normal [facility] Comment on above: Performed By: #### C MP, CMADM, BNP ####[facility] Pifglpixoj5982 [place] [address]Dr. Farhat Leal ALP [Catalytic activity/Vol] 98 U/L Normal 46-116 [facility] Comment on above: Performed By: #### C MP, CMADM, BNP ####[facility] Ydjiolyhgi6100 [place] [address]Dr. Farhat Leal ALT [Catalytic activity/Vol] 52 U/L Normal 16-63 [facility] Comment on above: Performed By: #### C MP, CMADM, BNP ####[facility] Llbnyvfyfl3749 [place] [address]Dr. Farhat Leal Anion gap [Moles/Vol] 9.8 mmol/L Normal [facility] Comment on above: Performed By: #### C MP, CMADM, BNP ####[facility] Eomcngccrl8023 [place] [address]Dr. Farhat Leal AST [Catalytic activity/Vol] 122 U/L Critically high 15-37 [facility] Comment on above: Performed By: #### C MP, CMADM, BNP ####[facility] Uevhbvahve8312 [place] [address]Dr. Farhat Leal Bilirubin [Mass/Vol] 0.7 mg/dL Normal 0.2-1.0 [facility] Comment on above: Performed By: #### C MP, CMADM, BNP ####[facility] Uaaqytkubu1814 [place] [address]Dr. Farhat Leal Calcium [Mass/Vol] 8.6 mg/dL Normal 8.5-10.1 [facility] Comment on above: Performed By: #### C MP, CMADM, BNP ####[facility] Quweghmtaw6908 [place] [address]Dr. Farhat Leal Chloride [Moles/Vol] 95 mmol/L Critically low 98-107 [facility] Comment on above: Performed By: #### C MP, CMADM, BNP ####[facility] Acutdochum147[address] [place], [place] [address]Dr. Farhat Leal CO2 [Moles/Vol] 29.6 mmol/L Normal 21.0-32.0 The [facility] Comment on above: Performed By: #### C MP, CMADM, BNP ####[facility] Ftfpcqvjdm993326 [address] [place], [place] [address]Dr. Farhat Leal Creatinine [Mass/Vol] 1.49 mg/dL Critically high 0.70-1.30 [facility] Comment on above: Performed By: #### C MP, CMADM, BNP ####[facility] Jeeszfeqic3166[address] [place], [place] [address]Dr. Farhat Leal EGFR-AF DANISH 55 mL/min/1.73m2 Critically low >=60 The [facility] Comment on above: Performed By: #### C MP, CMADM, BNP ####[facility] Bwbhhhabdm1528[address] [place], [place] [address]Dr. Farhat Leal EGFR-NON AF DANISH 46 mL/min/1.73m2 Critically low >=60 The [facility] Comment on above: Performed By: #### C MP, CMADM, BNP ####[facility] Bmdzksnipb8505 [place] [address]Dr. Farhat Leal Globulin (S) [Mass/Vol] 4.3 g/dL Normal [facility] Comment on above: Performed By: #### C MP, CMADM, BNP ####[facility] Pitcegrfkr9015 [place] [address]Dr. Farhat Leal Glucose [Mass/Vol] 213 mg/dL Critically high 74-106 [facility] Comment on above: Performed By: #### C MP, CMADM, BNP ####[facility] Slsbiwbyuu2733 [place] [address]Dr. Farhat Leal Potassium [Moles/Vol] 4.4 mmol/L Normal 3.5-5.1 [facility] Comment on above: Performed By: #### C MP, CMADM, BNP ####[facility] Ycjqejdxub5051 [place] [address]Dr. Farhat Leal Protein [Mass/Vol] 5.9 g/dL Critically low 6.4-8.2 Th [facility] Comment on above: Performed By: #### C MP, CMADM, BNP ####[facility] Wbeoxhizvl963126 [address] [place], [place] [address]Dr. Farhat Leal Sodium [Moles/Vol] 130 mmol/L Critically low 136-145 Th [facility] Comment on above: Performed By: #### C MP, CMADM, BNP ####[facility] Yvrbhxqpla5480 [place] [address]Dr. Farhat Leal Urea nitrogen [Mass/Vol] 46.0 mg/dL Critically high 7.0-18.0 [facility] Comment on above: Performed By: #### C MP, CMADM, BNP ####[facility] Jsewdkbekz398[address] [place], [place] [address]Dr. Farhat Leal Urea nitrogen/Creatinine [Mass ratio] 30.9 mg/mg Normal [facility] Comment on above: Performed By: #### C MP, CMADM, BNP ####[facility] Pxhaqsckpz0045 [place] [address]Dr. Farhat Leal PROTIMEon 11-23-2021 INR Coag (PPP) [Relative time] 2.55 {INR} Normal [facility] Comment on above: Performed By: #### P TT, PT ####[facility] Xilgmepezt7489[address] [place], [place] [address]Dr. Farhat Leal INR GUIDELINES SEE BELOW Normal [facility] Comment on above: Result Comment: MALINA RED INR: 2.0 - 3.0 CONDITIONS NOT LISTED BELOW 2.5 - 3.5 FOR PROSTHETIC HEART VALVE REPLACEMENT 2.5 - 3.5 RECURRENT THROMBOSIS Performed By: #### P TT, PT ####[facility] Jjxusfmliq818[address] [place], [place] [address]Dr. Farhat Leal PT Coag (PPP) [Time] 25.9 s Critically high 9.0-11.6 The [facility] Comment on above: Performed By: #### P TT, PT ####[facility] Wdammnysvm2229[address] [place], [place] [address]Dr. Farhat Leal PTTon 11-23-2021 aPTT Coag (Bld) [Time] 39.9 s Critically high 22.3-36. 2 [facility] Comment on above: Performed By: #### P TT, PT ####[facility] Rianjwosel365526 [address] [place], [place] [address]Dr. Farhat Leal XR HEEL RT 2Von 11-23-2021 XR HEEL RT 2V Normal [facility] XR FOOT RT MIN 3 VIEWSon XR FOOT RT MIN 3 VIEWS Normal [facility] US ARTERY LEG RTon 2 US ARTERY LEG RT Normal The [facility] CBC AUTO DIFFon 09-24-2021 BASO # 0.1 103/ul Normal 0.0-0.1 The [facility] Comment on above: Performed By: #### C BC ####[facility] Dtenxwnzmw1666[address] [place], [place] [address]Dr. Farhat Leal Basophils/100 WBC (Bld) 0.7 % Normal 0.2-2.0 [facility] Comment on above: Performed By: #### C BC ####[facility] Cexskyluco480[address] [place], [place] [address]Dr. Farhat Leal EO # 0.3 103/ul Normal 0.0-0.7 [facility] Comment on above: Performed By: #### C BC ####[facility] Ritgefegnn3790 [place] [phone]. Farhat Leal Eosinophils/100 WBC (Bld) 3.9 % Normal 0.9-7.0 [facility] Comment on above: Performed By: #### C BC ####[facility] Ugvvrqfzhy3291 [place] [address]Dr. Farhat Leal Erythrocyte distribution width (RBC) [Ratio] 12.6 % Normal 11.0-15.0 [facility] Comment on above: Performed By: #### C BC ####[facility] Uvureipihj3902 [place] [address]Dr. Farhat Leal Hematocrit (Bld) [Volume fraction] 38.9 % Critically low 42.0-54.0 [facility] Comment on above: Performed By: #### C BC ####[facility] Ylnihtcade5070[address] [place], [place] [address]Dr. Farhat Leal Hemoglobin (Bld) [Mass/Vol] 12.8 g/dL Critically low 14.0-18.0 [facility] Comment on above: Performed By: #### C BC ####[facility] Aqkyjayvtd8818[address] [place], [place] [address]Dr. Farhat Leal IG # 0.10 10e3/ul Critically high 0.00-0.03 [facility] Comment on above: Performed By: #### C BC ####[facility] Iewjibbutk7714 [place] [id number]. Farhat Leal IG % 1.2 % Critically high 0.0-0.5 The [facility] Comment on above: Performed By: #### C BC ####[facility] Sukvkyrkrq08[address] [place], [place] [address]Dr. Farhat Leal LYMPH # 2.1 103/ul Normal 1.2-3.8 [facility] Comment on above: Performed By: #### C BC ####[facility] Qrbzqawwze0114[address] [place], [place] [address]Dr. Farhat Leal Lymphocytes/100 WBC (Bld) 25.9 % Normal 20.5-60.0 The [facility] Comment on above: Performed By: #### C BC ####[facility] [address]ar[address] [place] [address]Dr. Madelynlorri Leal MANUAL DIFF REQ NO Normal The [facility] Comment on above: Performed By: #### C BC ####[facility] Vqzkzbofjl4[address] [place] [address]Dr. Farhat Leal MCH (RBC) [Entitic mass] 31.1 pg Normal 25.9-34.0 [facility] Comment on above: Performed By: #### C BC ####[facility] Bwrycjkjff399[address] [place] [address]Dr. Farhat Leal MCHC (RBC) [Mass/Vol] 32.9 g/dL Normal 29.9-35.2 The [facility] Comment on above: Performed By: #### C BC ####[facility] Qgabilplzy834026 [address] [place], [place] [address]Dr. Farhat Leal MCV (RBC) [Entitic vol] 94.6 fL Critically high 80.0-94.0 The [facility] Comment on above: Performed By: #### C BC ####[facility] Dcrfuhvixx595[address] [place], [place] [address]Dr. Farhat Leal MONO # 1.2 103/ul Critically high 0.3-0.8 The [facility] Comment on above: Performed By: #### C BC ####[facility] Cvrlxawhyt676326 [address] [place], [place] [address]Dr. Farhat Leal Monocytes/100 WBC (Bld) 14.1 % Critically high 1.7-12.0 The [facility] Comment on above: Performed By: #### C BC ####[facility] Qarxgclmag178426 [address] [place], [place] [address]Dr. Farhat Leal NEUT # 4.4 103/ul Normal 1.4-6.5 The [facility] Comment on above: Performed By: #### C BC ####[facility] Upucidxnow1950[address] [place], [place] [address]Dr. Farhat Leal Neutrophils/100 WBC (Bld) 54.2 % Normal 43.0-75.0 The [facility] Comment on above: Performed By: #### C BC ####[facility] Iffrwosnhe23[address] [place] [address]Dr. Farhat Leal Platelet mean volume (Bld) [Entitic vol] 9.9 fL Normal 9.5-13.5 The [facility] Comment on above: Performed By: #### C BC ####[facility] Pqbstaaipb1684 [place] [address]Dr. Farhat Leal PLT 224 103/ul Normal 150-450 The [facility] Comment on above: Performed By: #### C BC ####[facility] Qudwdigzia4419 [place] [address]Dr. Farhat Leal RBC 4.11 106/ul Critically low 4.70-6.10 The [facility] Comment on above: Performed By: #### C BC ####[facility] Dlvrbsnqdp606326 [address] [place], [place] [address]Dr. Farhat Leal WBC 8.2 103/ul Normal 4.0-11.0 The [facility] Comment on above: Performed By: #### C BC ####[facility] Wpdrcxrlpr821026 [address] [place], [place] [address]Dr. Farhat Leal PROF CHEM 8 (BAS METB)on Anion gap [Moles/Vol] 9.6 mmol/L Normal [facility] Comment on above: Performed By: #### B MP ####[facility] Ugqqyemjbn781326 [address] [place], [place] [address]Dr. Farhat Leal Calcium [Mass/Vol] 8.6 mg/dL Normal 8.5-10.1 The [facility] Comment on above: Performed By: #### B MP ####[facility] Gujrxprulx910526 [address] [place], [place] [address]Dr. Farhat Leal Chloride [Moles/Vol] 94 mmol/L Critically low 98-107 The [facility] Comment on above: Performed By: #### B MP ####[facility] Wfclgjikmz5706 [place] [address]Dr. Farhat Leal CO2 [Moles/Vol] 28.1 mmol/L Normal 21.0-32.0 [facility] Comment on above: Performed By: #### B MP ####[facility] Stosdpzqkt27[address] [place] [address]Dr. Farhat Leal Creatinine [Mass/Vol] 1.91 mg/dL Critically high 0.70-1.30 [facility] Comment on above: Performed By: #### B MP ####[facility] Mjjlzrmwcn113126 [address] [place], [place] [address]Dr. Farhat Leal EGFR-AF DANISH 42 mL/min/1.73m2 Critically low >=60 [facility] Comment on above: Performed By: #### B MP ####[facility] Doxejgxpcq985826 [address] [place], [place] [address]Dr. Farhat Leal EGFR-NON AF DANISH 34 mL/min/1.73m2 Critically low >=60 [facility] Comment on above: Performed By: #### B MP ####[facility] Bjoapawfkp495426 [address] [place], [place] [address]Dr. Farhat Leal Glucose [Mass/Vol] 314 mg/dL Critically high 74-106 T [facility] Comment on above: Performed By: #### B MP ####[facility] Fhbzdgnumt553526 [address] [place], [place] [address]Dr. Farhat Leal Potassium [Moles/Vol] 4.7 mmol/L Normal 3.5-5.1 [facility] Comment on above: Performed By: #### B MP ####[facility] Tpfiaqxdjs984826 [address] [place], [place] [address]Dr. Farhat Leal Sodium [Moles/Vol] 127 mmol/L Critically low 136-145 Th [facility] Comment on above: Performed By: #### B MP ####[facility] Kgvgitzsgw429726 [address] [place], [place] [address]Dr. Farhat Leal Urea nitrogen [Mass/Vol] 79.0 mg/dL Critically high 7.0-18.0 [facility] Comment on above: Result Comment: repe ated Performed By: #### B MP ####[facility] Kxzhsbsbht925726 [address] [place], [place] [address]Dr. Farhat Leal Urea nitrogen/Creatinine [Mass ratio] 41.4 mg/mg Normal [facility] Comment on above: Performed By: #### B MP ####[facility] Ufnvfbjapx669726 [address] [place], [place] [address]Dr. Farhat Leal PTT HEPARIN MONITORon 2021 aPTT Coag (Bld) [Time] 56.7 s Critically high 39.5-54. 2 [facility] Comment on above: Performed By: #### P TTHEP ####[facility] Yqzgpfunkg134326 [address] [place], [place] [address]Dr. Farhat Leal aPTT Coag (Bld) [Time] 42.7 s Normal 39.5-54.2 [facility] Comment on above: Performed By: #### P TTHEP ####[facility] Jtaqcvpnbf586426 [address] [place], [place] [address]Dr. Farhat Leal CBC AUTO DIFFon 09-23-2021 BASO # 0.1 103/ul Normal 0.0-0.1 [facility] Comment on above: Performed By: #### C BC ####[facility] Ddashhuzsv090326 [address] [place], [place] [address]Dr. Farhat Leal Basophils/100 WBC (Bld) 0.6 % Normal 0.2-2.0 [facility] Comment on above: Performed By: #### C BC ####[facility] Mvretsmsfa171626 [address] [place], [place] [address]Dr. Farhat Leal EO # 0.2 103/ul Normal 0.0-0.7 [facility] Comment on above: Performed By: #### C BC ####[facility] Bmzlxrkvft108326 [address] [place], [place] [address]Dr. Farhat Leal Eosinophils/100 WBC (Bld) 2.6 % Normal 0.9-7.0 [facility] Comment on above: Performed By: #### C BC ####[facility] Zgzgfrzmom485526 [address] [place], [place] [address]Dr. Farhat Leal Erythrocyte distribution width (RBC) [Ratio] 12.4 % Normal 11.0-15.0 [facility] Comment on above: Performed By: #### C BC ####[facility] Giorfncjfz3[address] [place] [address]DrSkylar Leal Hematocrit (Bld) [Volume fraction] 38.4 % Critically low 42.0-54.0 [facility] Comment on above: Performed By: #### C BC ####[facility] Ipybjujdwq853726 [address] [place], [place] [address]DrSkylar Leal Hemoglobin (Bld) [Mass/Vol] 12.8 g/dL Critically low 14.0-18.0 [facility] Comment on above: Performed By: #### C BC ####[facility] Fhyvrsecvt932226 [address] [place], [place] [address]DrSkylar Leal IG # 0.06 10e3/ul Critically high 0.00-0.03 [facility] Comment on above: Performed By: #### C BC ####[facility] Jjabaqwxnq939526 [address] [place], [place] [address]DrSkylar Leal IG % 0.8 % Critically high 0.0-0.5 [facility] Comment on above: Performed By: #### C BC ####[facility] Zxzgjyqtat448126 [address] [place], [place] [address]DrSkylar Leal LYMPH # 1.5 103/ul Normal 1.2-3.8 [facility] Comment on above: Performed By: #### C BC ####[facility] Jijdfhxqvf405926 [address] [place], [place] [address]DrSkylar Leal Lymphocytes/100 WBC (Bld) 19.7 % Critically low 20.5-60.0 [facility] Comment on above: Performed By: #### C BC ####[facility] Obbocpvptp723426 [address] [place], [place] [address]DrSkylar Leal MANUAL DIFF REQ NO Normal [facility] Comment on above: Performed By: #### C BC ####[facility] Epmixkgyar681226 [address] [place], [place] [address]DrSkylar Leal MCH (RBC) [Entitic mass] 31.6 pg Normal 25.9-34.0 The [facility] Comment on above: Performed By: #### C BC ####[facility] Wtzlqnicfo25[address] [place] [address]Dr. Farhat Elvis MCHC (RBC) [Mass/Vol] 33.3 g/dL Normal 29.9-35.2 The [facility] Comment on above: Performed By: #### C BC ####[facility] Ywsnquarnr6661 [place] [address]DrSkylar Leal MCV (RBC) [Entitic vol] 94.8 fL Critically high 80.0-94.0 The [facility] Comment on above: Performed By: #### C BC ####[facility] Ubhhtibpmk786426 [address] [place], [place] [address]DrSkylar Leal MONO # 1.0 103/ul Critically high 0.3-0.8 [facility] Comment on above: Performed By: #### C BC ####[facility] Puxoraycgr606326 [address] [place], [place] [address]Dr. Farhat Leal Monocytes/100 WBC (Bld) 13.0 % Critically high 1.7-12.0 The [facility] Comment on above: Performed By: #### C BC ####[facility] Iespcvbnpv3678[address] [place], [place] [address]DrSkylar Leal NEUT # 4.9 103/ul Normal 1.4-6.5 The [facility] Comment on above: Performed By: #### C BC ####[facility] Luvrmwucjm985226 [address] [place], [place] [address]DrSkylar Leal Neutrophils/100 WBC (Bld) 63.3 % Normal 43.0-75.0 The [facility] Comment on above: Performed By: #### C BC ####[facility] Zaxjzunrpx0501[address] [place], [place] [address]DrSkylar Leal Platelet mean volume (Bld) [Entitic vol] 10.7 fL Normal 9.5-13.5 The [facility] Comment on above: Performed By: #### C BC ####[facility] Mpljciexel928626 [address] [place], [place] [address]Dr. aMdelynlorri Elvis PLT 205 103/ul Normal 150-450 The [facility] Comment on above: Performed By: #### C BC ####[facility] Eybiziigxd8185 [place] [address]Dr. Farhat Elvis RBC 4.05 106/ul Critically low 4.70-6.10 [facility] Comment on above: Performed By: #### C BC ####[facility] Tbkjjgphid4505 [place] [address]Dr. Farhat Elvis WBC 7.7 103/ul Normal 4.0-11.0 [facility] Comment on above: Performed By: #### C BC ####[facility] Nwelkbgiaa1592 [place] [address]Dr. Madelynlorri Leal PROF CHEM 8 (BAS METB)on Anion gap [Moles/Vol] 15.5 mmol/L Normal [facility] Comment on above: Performed By: #### B MP ####[facility] Qdqixnqhrs8105 [place] [address]Dr. Farhat Leal Calcium [Mass/Vol] 9.1 mg/dL Normal 8.5-10.1 [facility] Comment on above: Performed By: #### B MP ####[facility] Wjqzdaqozf7902 [place] [address]Dr. Farhat Leal Chloride [Moles/Vol] 92 mmol/L Critically low 98-107 The [facility] Comment on above: Performed By: #### B MP ####[facility] Zwyabwwqvf7664 [place] [address]Dr. Farhat Leal CO2 [Moles/Vol] 28.5 mmol/L Normal 21.0-32.0 The [facility] Comment on above: Performed By: #### B MP ####[facility] Qgyyvqwsif6849 [place] [address]Dr. Farhat Leal Creatinine [Mass/Vol] 1.84 mg/dL Critically high 0.70-1.30 [facility] Comment on above: Performed By: #### B MP ####[facility] Qypzijrugz1430 [place] [address]Dr. Farhat Elvis EGFR-AF DANISH 44 mL/min/1.73m2 Critically low >=60 [facility] Comment on above: Performed By: #### B MP ####[facility] Tecyzyjceb6066[address] [place], [place] [address]Dr. Madelynlorri Leal EGFR-NON AF DANISH 36 mL/min/1.73m2 Critically low >=60 [facility] Comment on above: Performed By: #### B MP ####[facility] Kusymmywfx908026 [address] [place], [place] [address]Dr. Farhat Leal Glucose [Mass/Vol] 267 mg/dL Critically high 74-106 T [facility] Comment on above: Performed By: #### B MP ####[facility] Mskxkjbumd434826 [address] [place], [place] [address]Dr. Farhat Leal Potassium [Moles/Vol] 5.0 mmol/L Normal 3.5-5.1 [facility] Comment on above: Performed By: #### B MP ####[facility] Inrimrzroq637826 [address] [place], [place] [address]Dr. Farhat Leal Sodium [Moles/Vol] 131 mmol/L Critically low 136-145 [facility] Comment on above: Performed By: #### B MP ####[facility] Uhpmvcjsbs443526 [address] [place], [place] [address]Dr. Farhat Leal Urea nitrogen [Mass/Vol] 76.0 mg/dL Critically high 7.0-18.0 [facility] Comment on above: Performed By: #### B MP ####[facility] Sfdvwbubco019726 [address] [place], [place] [address]Dr. Farhat Leal Urea nitrogen/Creatinine [Mass ratio] 41.3 mg/mg Normal [facility] Comment on above: Performed By: #### B MP ####[facility] Ifndtpdsoj242526 [address] [place], [place] [address]Dr. Farhat Leal PTT HEPARIN MONITORon 2021 aPTT Coag (Bld) [Time] 45.5 s Normal 39.5-54.2 [facility] Comment on above: Performed By: #### P TTHEP ####[facility] Xhjqzrrysp933026 [address] [place], [place] [address]Dr. Farhat Elvis aPTT Coag (Bld) [Time] 74.7 s Critically high 39.5-54. 2 [facility] Comment on above: Result Comment: repe ated Performed By: #### P TTHEP ####[facility] Cupubvltdf243626 [address] [place], [place] [address]Dr. Farhat Leal aPTT Coag (Bld) [Time] 57.2 s Critically high 39.5-54. 2 [facility] Comment on above: Performed By: #### P TTHEP ####[facility] Pmrptuypzu008926 [address] [place], [place] [address]Dr. Farhat Leal CBC AUTO DIFFon 09-22-2021 BASO # 0.1 103/ul Normal 0.0-0.1 [facility] Comment on above: Performed By: #### C BC ####[facility] Wzxmxqaxov490826 [address] [place], [place] [address]Dr. Farhat Leal Basophils/100 WBC (Bld) 0.7 % Normal 0.2-2.0 [facility] Comment on above: Performed By: #### C BC ####[facility] Qbdcmujxxw668826 [address] [place], [place] [address]DrSkylar Leal EO # 0.3 103/ul Normal 0.0-0.7 [facility] Comment on above: Performed By: #### C BC ####[facility] Nkhqhmtxqr841626 [address] [place], [place] [address]DrSkylar Leal Eosinophils/100 WBC (Bld) 3.2 % Normal 0.9-7.0 [facility] Comment on above: Performed By: #### C BC ####[facility] Icozgmsabd881726 [address] [place], [place] [address]Dr. Farhat Leal Erythrocyte distribution width (RBC) [Ratio] 12.5 % Normal 11.0-15.0 [facility] Comment on above: Performed By: #### C BC ####[facility] Axwnspmpzd528926 [address] [place], [place] [address]DrSkylar Leal Hematocrit (Bld) [Volume fraction] 40.5 % Critically low 42.0-54.0 [facility] Comment on above: Performed By: #### C BC ####[facility] Xqmxzndirv5699 [place] [address]Dr. Madelynlorri Leal Hemoglobin (Bld) [Mass/Vol] 13.4 g/dL Critically low 14.0-18.0 [facility] Comment on above: Performed By: #### C BC ####[facility] Uqdzgfroif387126 [address] [place], [place] [address]Dr. Farhat Leal IG # 0.11 10e3/ul Critically high 0.00-0.03 [facility] Comment on above: Performed By: #### C BC ####[facility] Drsdbjunin509426 [address] [place], [place] [address]Dr. Farhat Leal IG % 1.3 % Critically high 0.0-0.5 [facility] Comment on above: Performed By: #### C BC ####[facility] Bkouieyxxo002326 [address] [place], [place] [address]Dr. Farhat Leal LYMPH # 1.7 103/ul Normal 1.2-3.8 [facility] Comment on above: Performed By: #### C BC ####[facility] Skzvtqgvaa350326 [address] [place], [place] [address]Dr. Farhat Leal Lymphocytes/100 WBC (Bld) 19.6 % Critically low 20.5-60.0 [facility] Comment on above: Performed By: #### C BC ####[facility] Zahpnklkxy788726 [address] [place], [place] [address]Dr. Farhat Leal MANUAL DIFF REQ NO Normal [facility] Comment on above: Performed By: #### C BC ####[facility] Lbcacrfthx554526 [address] [place], [place] [address]Dr. Farhat Leal MCH (RBC) [Entitic mass] 31.1 pg Normal 25.9-34.0 [facility] Comment on above: Performed By: #### C BC ####[facility] Qabtowwozi592626 [address] [place], [place] [address]Dr. Farhat Leal MCHC (RBC) [Mass/Vol] 33.1 g/dL Normal 29.9-35.2 [facility] Comment on above: Performed By: #### C BC ####[facility] Tyzhkrjcxk374626 [address] [place], [place] [address]Dr. Farhat Leal MCV (RBC) [Entitic vol] 94.0 fL Normal 80.0-94.0 [facility] Comment on above: Performed By: #### C BC ####[facility] Lmwrblonzg925026 [address] [place], [place] [address]DrSkylar Leal MONO # 1.1 103/ul Critically high 0.3-0.8 [facility] Comment on above: Performed By: #### C BC ####[facility] Igqnxuokfo354626 [address] [place], [place] [address]DrSkylar Leal Monocytes/100 WBC (Bld) 12.7 % Critically high 1.7-12.0 [facility] Comment on above: Performed By: #### C BC ####[facility] Pcrvbtpxmo503926 [address] [place], [place] [address]Dr. Farhat Leal NEUT # 5.3 103/ul Normal 1.4-6.5 [facility] Comment on above: Performed By: #### C BC ####[facility] Tmippecyfi624126 [address] [place], [place] [address]Dr. Farhat Leal Neutrophils/100 WBC (Bld) 62.5 % Normal 43.0-75.0 [facility] Comment on above: Performed By: #### C BC ####[facility] Nzjdchgbtn884226 [address] [place], [place] [address]Dr. Farhat Leal Platelet mean volume (Bld) [Entitic vol] 10.1 fL Normal 9.5-13.5 [facility] Comment on above: Performed By: #### C BC ####[facility] Oqkwvavtaj0154[address] [place], [place] [address]DrSkylar Leal PLT 220 103/ul Normal 150-450 [facility] Comment on above: Performed By: #### C BC ####[facility] Bcfdzphmdi864826 [address] [place], [place] [address]Dr. Farhat Leal RBC 4.31 106/ul Critically low 4.70-6.10 [facility] Comment on above: Performed By: #### C BC ####[facility] Kxisdonkja6813 [place] [address]Dr. Farhat Elvis WBC 8.4 103/ul Normal 4.0-11.0 [facility] Comment on above: Performed By: #### C BC ####[facility] Uxstqxubad3795[address] [place], [place] [address]DrSkylar Leal PROF CHEM 8 (BAS METB)on Anion gap [Moles/Vol] 15.5 mmol/L Normal [facility] Comment on above: Performed By: #### B MP ####[facility] Fysanwxotx205326 [address] [place], [place] [address]Dr. Farhat Leal Calcium [Mass/Vol] 8.9 mg/dL Normal 8.5-10.1 [facility] Comment on above: Performed By: #### B MP ####[facility] Soomolngjx584326 [address] [place], [place] [address]DrSkylar Leal Chloride [Moles/Vol] 92 mmol/L Critically low 98-107 [facility] Comment on above: Performed By: #### B MP ####[facility] Afqtllhdki926226 [address] [place], [place] [address]DrSkylar Leal CO2 [Moles/Vol] 25.7 mmol/L Normal 21.0-32.0 The [facility] Comment on above: Performed By: #### B MP ####[facility] Ksabyrbyww8000[address] [place], [place] [address]DrSkylar Leal Creatinine [Mass/Vol] 1.85 mg/dL Critically high 0.70-1.30 [facility] Comment on above: Performed By: #### B MP ####[facility] Uflzxamjbk969126 [address] [place], [place] [address]Dr. Farhat Leal EGFR-AF DANISH 43 mL/min/1.73m2 Critically low >=60 The [facility] Comment on above: Performed By: #### B MP ####[facility] Hlscnimsbe653926 [address] [place], [place] [address]Dr. Madelynlorri Elvis EGFR-NON AF DANISH 36 mL/min/1.73m2 Critically low >=60 [facility] Comment on above: Performed By: #### B MP ####[facility] Zvkuymakpj763126 [address] [place], [place] [address]Dr. Farhat Leal Glucose [Mass/Vol] 410 mg/dL Critically high 74-106 T [facility] Comment on above: Performed By: #### B MP ####[facility] Yopwmupoqk0545[address] [place], [place] [address]Dr. Farhat Leal Potassium [Moles/Vol] 5.2 mmol/L Critically high 3.5-5.1 [facility] Comment on above: Performed By: #### B MP ####[facility] Arzyzqihgl2375[address] [place], [place] [address]Dr. Farhat Leal Sodium [Moles/Vol] 128 mmol/L Critically low 136-145 Th [facility] Comment on above: Performed By: #### B MP ####[facility] Mwyctuyaiu4106[address] [place], [place] [address]Dr. Farhat Leal Urea nitrogen [Mass/Vol] 75.0 mg/dL Critically high 7.0-18.0 [facility] Comment on above: Performed By: #### B MP ####[facility] Uzsliarocd723[address] [place], [place] [address]Dr. Farhat Leal Urea nitrogen/Creatinine [Mass ratio] 40.5 mg/mg Normal [facility] Comment on above: Performed By: #### B MP ####[facility] Rpkyvrsovx8347[address] [place], [place] [address]Dr. Farhat Leal PTT HEPARIN MONITORon 2021 aPTT Coag (Bld) [Time] 53.8 s Normal 39.5-54.2 Th [facility] Comment on above: Performed By: #### P TTHEP ####[facility] Myamarohld9155[address] [place], [place] [address]Dr. Farhat Leal aPTT Coag (Bld) [Time] 46.1 s Normal 39.5-54.2 Th [facility] Comment on above: Performed By: #### P TTHEP ####[facility] Atrxcdgunj1633 [place] [address]Dr. Farhat Leal aPTT Coag (Bld) [Time] 55.6 s Critically high 39.5-54. 2 [facility] Comment on above: Performed By: #### P TTHEP ####[facility] Bdzwscllxj7010[address] [place], [place] [address]Dr. Farhat Leal aPTT Coag (Bld) [Time] 51.2 s Normal 39.5-54.2 [facility] Comment on above: Performed By: #### P TTHEP ####[facility] Fyzpifmkvd12[address] [place], [place] [address]DrSkylar Leal CBC AUTO DIFFon 09-21-2021 BASO # 0.1 103/ul Normal 0.0-0.1 [facility] Comment on above: Performed By: #### C BC ####[facility] Ipjzeidkay79[address] [place], [place] [address]DrSkylar Leal Basophils/100 WBC (Bld) 0.8 % Normal 0.2-2.0 [facility] Comment on above: Performed By: #### C BC ####[facility] Iaoyethikt502226 [address] [place], [place] [address]DrSkylar Leal EO # 0.4 103/ul Normal 0.0-0.7 [facility] Comment on above: Performed By: #### C BC ####[facility] Xfptoxzugl912726 [address] [place], [place] [address]DrSkylar Leal Eosinophils/100 WBC (Bld) 4.3 % Normal 0.9-7.0 [facility] Comment on above: Performed By: #### C BC ####[facility] Hrpheoycmo916826 [address] [place], [place] [address]DrSkylar Leal Erythrocyte distribution width (RBC) [Ratio] 12.5 % Normal 11.0-15.0 [facility] Comment on above: Performed By: #### C BC ####[facility] Vlwzcaiuex4512[address] [place], [place] [address]DrSkylar Leal Hematocrit (Bld) [Volume fraction] 40.8 % Critically low 42.0-54.0 [facility] Comment on above: Performed By: #### C BC ####[facility] Ppqswaabbd0041 [place] [address]DrSkylar Leal Hemoglobin (Bld) [Mass/Vol] 13.5 g/dL Critically low 14.0-18.0 [facility] Comment on above: Performed By: #### C BC ####[facility] Psjxkehacn717[address] [place], [place] [address]DrSkylar Leal IG # 0.10 10e3/ul Critically high 0.00-0.03 [facility] Comment on above: Performed By: #### C BC ####[facility] Riddziiyll526626 [address] [place], [place] [address]DrSkylar Leal IG % 1.2 % Critically high 0.0-0.5 [facility] Comment on above: Performed By: #### C BC ####[facility] Zuwmzigvrl212426 [address] [place], [place] [address]DrSkylar Leal LYMPH # 1.3 103/ul Normal 1.2-3.8 [facility] Comment on above: Performed By: #### C BC ####[facility] Bygjeirwdg490926 [address] [place], [place] [address]DrSkylar Leal Lymphocytes/100 WBC (Bld) 15.4 % Critically low 20.5-60.0 [facility] Comment on above: Performed By: #### C BC ####[facility] Wpssquvqna896026 [address] [place], [place] [address]DrSkylar Leal MANUAL DIFF REQ NO Normal [facility] Comment on above: Performed By: #### C BC ####[facility] Cpbnqiubha817426 [address] [place], [place] [address]DrSkylar Leal MCH (RBC) [Entitic mass] 31.0 pg Normal 25.9-34.0 [facility] Comment on above: Performed By: #### C BC ####[facility] Nfnzarytjc069126 [address] [place], [place] [address]DrSkylar Leal MCHC (RBC) [Mass/Vol] 33.1 g/dL Normal 29.9-35.2 [facility] Comment on above: Performed By: #### C BC ####[facility] Qhdobgiyxl2583 [place] [id number]. Farhat Elvis MCV (RBC) [Entitic vol] 93.8 fL Normal 80.0-94.0 [facility] Comment on above: Performed By: #### C BC ####[facility] Uifovmisva6087[address] [place], [place] [id number]. Farhat Leal MONO # 1.2 103/ul Critically high 0.3-0.8 [facility] Comment on above: Performed By: #### C BC ####[facility] Urqhdtqmym704426 [address] [place], [place] [address]Dr. Farhat Leal Monocytes/100 WBC (Bld) 13.6 % Critically high 1.7-12.0 [facility] Comment on above: Performed By: #### C BC ####[facility] Utshnnaxex854026 [address] [place], [place] [address]Dr. Farhat Leal NEUT # 5.5 103/ul Normal 1.4-6.5 [facility] Comment on above: Performed By: #### C BC ####[facility] Mdfeuwwsyl928485 [address] [place], [place] [id number]. Farhat Leal Neutrophils/100 WBC (Bld) 64.7 % Normal 43.0-75.0 [facility] Comment on above: Performed By: #### C BC ####[facility] Zetqqahjhd049026 [address] [place], [place] [address]Dr. Farhat Leal Platelet mean volume (Bld) [Entitic vol] 9.8 fL Normal 9.5-13.5 [facility] Comment on above: Performed By: #### C BC ####[facility] Occtwiewdw7976[address] [place], [place] [id number]. Farhat Leal PLT 206 103/ul Normal 150-450 [facility] Comment on above: Performed By: #### C BC ####[facility] Cuhktroxch2955[address] [place], [place] [id number]. Farhat Elvis RBC 4.35 106/ul Critically low 4.70-6.10 [facility] Comment on above: Performed By: #### C BC ####[facility] Pdwqoqncvf1343 [place] [address]Dr. Madelynlorri Elvis WBC 8.4 103/ul Normal 4.0-11.0 [facility] Comment on above: Performed By: #### C BC ####[facility] Inzfujzzen1234 [place] [address]Dr. Farhat Leal PROF CHEM 8 (BAS METB)on Anion gap [Moles/Vol] 12.3 mmol/L Normal [facility] Comment on above: Performed By: #### B MP ####[facility] Pbgitigtnf9259 [place] [address]Dr. Farhat Leal Calcium [Mass/Vol] 8.6 mg/dL Normal 8.5-10.1 [facility] Comment on above: Performed By: #### B MP ####[facility] Tmcfnxfxoi373926 [address] [place], [place] [address]Dr. Farhat Leal Chloride [Moles/Vol] 94 mmol/L Critically low 98-107 [facility] Comment on above: Performed By: #### B MP ####[facility] Vdrbhywgmp919426 [address] [place], [place] [address]Dr. Farhat Leal CO2 [Moles/Vol] 30.8 mmol/L Normal 21.0-32.0 The [facility] Comment on above: Performed By: #### B MP ####[facility] Yqdhfkyqii1057 [place] [address]Dr. Farhat Leal Creatinine [Mass/Vol] 1.99 mg/dL Critically high 0.70-1.30 [facility] Comment on above: Performed By: #### B MP ####[facility] Abblikpurs1669 [place] [address]Dr. Farhat Leal EGFR-AF DANISH 40 mL/min/1.73m2 Critically low >=60 [facility] Comment on above: Performed By: #### B MP ####[facility] Xeajvaahoi7001 [place] [id number]. Madelynlorri Elvis EGFR-NON AF DANISH 33 mL/min/1.73m2 Critically low >=60 [facility] Comment on above: Performed By: #### B MP ####[facility] Pifokwtemk5361 [place] [address]Dr. Farhat Leal Glucose [Mass/Vol] 264 mg/dL Critically high 74-106 [facility] Comment on above: Performed By: #### B MP ####[facility] Rmodzhhrov390726 [address] [place], [place] [address]Dr. Farhat Leal Potassium [Moles/Vol] 5.1 mmol/L Normal 3.5-5.1 [facility] Comment on above: Performed By: #### B MP ####[facility] Zzxslfrmmr279326 [address] [place], [place] [address]Dr. Farhat Leal Sodium [Moles/Vol] 132 mmol/L Critically low 136-145 [facility] Comment on above: Performed By: #### B MP ####[facility] Nluqknwuwd251026 [address] [place], [place] [address]Dr. Farhat Leal Urea nitrogen [Mass/Vol] 72.0 mg/dL Critically high 7.0-18.0 [facility] Comment on above: Performed By: #### B MP ####[facility] Cdzuxfcoph952126 [address] [place], [place] [address]Dr. Farhat Leal Urea nitrogen/Creatinine [Mass ratio] 36.2 mg/mg Normal [facility] Comment on above: Performed By: #### B MP ####[facility] Vlgfaudndu367326 [address] [place], [place] [address]Dr. Farhat Leal PTT HEPARIN MONITORon 2021 aPTT Coag (Bld) [Time] 126.9 s Critically high 39.5-54. 2 [facility] Comment on above: Performed By: #### P TTHEP ####[facility] Obndgybpab561126 [address] [place], [place] [address]Dr. Farhat Leal aPTT Coag (Bld) [Time] 53.5 s Normal 39.5-54.2 [facility] Comment on above: Performed By: #### P TTHEP ####[facility] Fzakmzwcnp932326 [address] [place], [place] [address]Dr. Farhat Leal aPTT Coag (Bld) [Time] 69.4 s Critically high 39.5-54. 2 [facility] Comment on above: Performed By: #### P TTHEP ####[facility] Mbabhgfxtn430726 [address] [place], [place] [address]Dr. Farhat Leal aPTT Coag (Bld) [Time] 68.0 s Critically high 39.5-54. 2 [facility] Comment on above: Performed By: #### P TTHEP ####[facility] Mehmgmwdgq018626 [address] [place], [place] [address]Dr. Farhat Leal aPTT Coag (Bld) [Time] 45.3 s Normal 39.5-54.2 [facility] Comment on above: Performed By: #### P TTHEP ####[facility] Vychcjhrat431826 [address] [place], [place] [address]Dr. Farhat Leal CBC AUTO DIFFon 09-20-2021 BASO # 0.1 103/ul Normal 0.0-0.1 [facility] Comment on above: Performed By: #### C BC ####[facility] Tazacxxkoy291226 [address] [place], [place] [address]Dr. Farhat Elvis Basophils/100 WBC (Bld) 0.7 % Normal 0.2-2.0 [facility] Comment on above: Performed By: #### C BC ####[facility] Bhlvnrtqcl927726 [address] [place], [place] [address]Dr. Farhat Leal EO # 0.2 103/ul Normal 0.0-0.7 [facility] Comment on above: Performed By: #### C BC ####[facility] Ahyovlyhxy051226 [address] [place], [place] [address]Dr. Farhat Elvis Eosinophils/100 WBC (Bld) 3.2 % Normal 0.9-7.0 [facility] Comment on above: Performed By: #### C BC ####[facility] Gwmdxzclwk2976[address] [place], [place] [id number]. Farhat Leal Erythrocyte distribution width (RBC) [Ratio] 12.4 % Normal 11.0-15.0 [facility] Comment on above: Performed By: #### C BC ####[facility] Syrouwlcdr2614 [place] [address]Dr. Farhat Leal Hematocrit (Bld) [Volume fraction] 40.1 % Critically low 42.0-54.0 [facility] Comment on above: Performed By: #### C BC ####[facility] Oymbdlofha8108 [place] [address]Dr. Madelynlorri Leal Hemoglobin (Bld) [Mass/Vol] 13.4 g/dL Critically low 14.0-18.0 [facility] Comment on above: Performed By: #### C BC ####[facility] Sytitwugcd508226 [address] [place], [place] [address]Dr. Farhat Leal IG # 0.08 10e3/ul Critically high 0.00-0.03 [facility] Comment on above: Performed By: #### C BC ####[facility] Vrofyrlrfq033326 [address] [place], [place] [address]Dr. Madelynlorri Leal IG % 1.1 % Critically high 0.0-0.5 The [facility] Comment on above: Performed By: #### C BC ####[facility] Fgvzlfiwdz339326 [address] [place], [place] [address]Dr. Farhat Leal LYMPH # 1.3 103/ul Normal 1.2-3.8 [facility] Comment on above: Performed By: #### C BC ####[facility] Llkvnsileb833126 [address] [place], [place] [address]Dr. Farhat Lael Lymphocytes/100 WBC (Bld) 17.3 % Critically low 20.5-60.0 The [facility] Comment on above: Performed By: #### C BC ####[facility] Miwqfqngjp6434[address] [place], [place] [address]Dr. Madelynlorri Leal MANUAL DIFF REQ NO Normal [facility] Comment on above: Performed By: #### C BC ####[facility] Yqynfyfllx098026 [address] [place], [place] [address]Dr. Farhat Leal MCH (RBC) [Entitic mass] 31.2 pg Normal 25.9-34.0 [facility] Comment on above: Performed By: #### C BC ####[facility] Ekeesdpbvf6864 [place] [address]Dr. Farhat Leal MCHC (RBC) [Mass/Vol] 33.4 g/dL Normal 29.9-35.2 [facility] Comment on above: Performed By: #### C BC ####[facility] Cccxsdcppj1535 [place] [address]Dr. Farhat Leal MCV (RBC) [Entitic vol] 93.3 fL Normal 80.0-94.0 [facility] Comment on above: Performed By: #### C BC ####[facility] Ilqhblefrh0884 [place] [address]Dr. Farhat Leal MONO # 0.9 103/ul Critically high 0.3-0.8 [facility] Comment on above: Performed By: #### C BC ####[facility] Kwfdykoubk2471 [place] [address]Dr. Farhat Leal Monocytes/100 WBC (Bld) 12.4 % Critically high 1.7-12.0 [facility] Comment on above: Performed By: #### C BC ####[facility] Braqjutqxz5820 [place] [address]Dr. Farhat Leal NEUT # 4.7 103/ul Normal 1.4-6.5 [facility] Comment on above: Performed By: #### C BC ####[facility] Eccuywdjkg5917 [place] [address]Dr. Farhat Leal Neutrophils/100 WBC (Bld) 65.3 % Normal 43.0-75.0 [facility] Comment on above: Performed By: #### C BC ####[facility] Kxsgjmkeyv6153 [place] [address]Dr. Farhat Leal Platelet mean volume (Bld) [Entitic vol] 9.9 fL Normal 9.5-13.5 [facility] Comment on above: Performed By: #### C BC ####[facility] Uwlneljqyw0418 [place] [id number]. Farhat Leal PLT 180 103/ul Normal 150-450 [facility] Comment on above: Performed By: #### C BC ####[facility] Tmrsvykxbk7911 [place] [address]Dr. Farhat Leal RBC 4.30 106/ul Critically low 4.70-6.10 [facility] Comment on above: Performed By: #### C BC ####[facility] Dvkipouynr9914 [place] [address]Dr. Farhat Leal WBC 7.2 103/ul Normal 4.0-11.0 [facility] Comment on above: Performed By: #### C BC ####[facility] Xfrmtdmnkk389926 [address] [place], [place] [address]Dr. Farhat Elvis PTT HEPARIN MONITORon 2021 aPTT Coag (Bld) [Time] 139.0 s Critically high 39.5-54. 2 [facility] Comment on above: Performed By: #### P TTHEP ####[facility] Eejvhftemn367926 [address] [place], [place] [address]Dr. Farhat Leal aPTT Coag (Bld) [Time] 27.6 s Critically low 39.5-54.2 [facility] Comment on above: Performed By: #### P TTHEP ####[facility] Apedqimrfr571726 [address] [place], [place] [address]Dr. Farhat Leal aPTT Coag (Bld) [Time] 121.0 s Critically high 39.5-54. 2 [facility] Comment on above: Performed By: #### P TTHEP ####[facility] Hwuomlvhzq289726 [address] [place], [place] [address]Dr. Farhat Elvis aPTT Coag (Bld) [Time] 26.7 s Critically low 39.5-54.2 [facility] Comment on above: Performed By: #### P TTHEP ####[facility] Epvexmpztk631626 [address] [place], [place] [address]Dr. Farhat Elvis CBC AUTO DIFFon 09-19-2021 BASO # 0.0 103/ul Normal 0.0-0.1 [facility] Comment on above: Performed By: #### C BC ####[facility] Aaijjmgxzp2042 [place] [address]Dr. Farhat Leal Basophils/100 WBC (Bld) 0.5 % Normal 0.2-2.0 [facility] Comment on above: Performed By: #### C BC ####[facility] Vlogpbwrsq581426 [address] [place], [place] [address]Dr. Farhat Leal EO # 0.2 103/ul Normal 0.0-0.7 [facility] Comment on above: Performed By: #### C BC ####[facility] Eqhquuowid588326 [address] [place], [place] [address]Dr. Farhat Leal Eosinophils/100 WBC (Bld) 2.6 % Normal 0.9-7.0 [facility] Comment on above: Performed By: #### C BC ####[facility] Klutbucqdr038626 [address] [place], [place] [address]Dr. Farhat Leal Erythrocyte distribution width (RBC) [Ratio] 12.5 % Normal 11.0-15.0 [facility] Comment on above: Performed By: #### C BC ####[facility] Ueowbjvpwi9439[address] [place], [place] [address]Dr. Farhat Leal Hematocrit (Bld) [Volume fraction] 39.2 % Critically low 42.0-54.0 [facility] Comment on above: Performed By: #### C BC ####[facility] Fejzhuujav6460[address] [place], [place] [address]Dr. Farhat Leal Hemoglobin (Bld) [Mass/Vol] 13.3 g/dL Critically low 14.0-18.0 [facility] Comment on above: Performed By: #### C BC ####[facility] Zyfkipusco1725[address] [place], [place] [address]Dr. Madelynlorri Leal IG # 0.08 10e3/ul Critically high 0.00-0.03 [facility] Comment on above: Performed By: #### C BC ####[facility] Uvdhzkmbtf2290[address] [place], [place] [address]Dr. Madelynlorri Leal IG % 0.9 % Critically high 0.0-0.5 [facility] Comment on above: Performed By: #### C BC ####[facility] Aohqldanfk7093 [place] [address]Dr. Farhat Leal LYMPH # 1.5 103/ul Normal 1.2-3.8 [facility] Comment on above: Performed By: #### C BC ####[facility] Xnngoauavb7529 [place] [address]Dr. Madelynlorri Leal Lymphocytes/100 WBC (Bld) 17.2 % Critically low 20.5-60.0 [facility] Comment on above: Performed By: #### C BC ####[facility] Kvvskoudbc2343 [place] [address]Dr. Farhat Leal MANUAL DIFF REQ NO Normal [facility] Comment on above: Performed By: #### C BC ####[facility] Mnsdcbtuwb6389 [place] [address]Dr. Farhat Elvis MCH (RBC) [Entitic mass] 31.7 pg Normal 25.9-34.0 [facility] Comment on above: Performed By: #### C BC ####[facility] Jmptcwgtke4290 [place] [address]Dr. Farhat Elvis MCHC (RBC) [Mass/Vol] 33.9 g/dL Normal 29.9-35.2 [facility] Comment on above: Performed By: #### C BC ####[facility] Kchwbhuvma0787 [place] [address]DrSkylar Madelynlorri Leal MCV (RBC) [Entitic vol] 93.3 fL Normal 80.0-94.0 [facility] Comment on above: Performed By: #### C BC ####[facility] Cnirselznd1704 [place] [address]DrSkylar Leal MONO # 1.2 103/ul Critically high 0.3-0.8 [facility] Comment on above: Performed By: #### C BC ####[facility] Fntutbeupg6731 [place] [address]Dr. Farhat Leal Monocytes/100 WBC (Bld) 13.7 % Critically high 1.7-12.0 [facility] Comment on above: Performed By: #### C BC ####[facility] Aaoctgsmos2768 [place] [address]Dr. Farhat Leal NEUT # 5.5 103/ul Normal 1.4-6.5 [facility] Comment on above: Performed By: #### C BC ####[facility] Ssckhyhuxv6769 [place] [address]Dr. Farhat Leal Neutrophils/100 WBC (Bld) 65.1 % Normal 43.0-75.0 [facility] Comment on above: Performed By: #### C BC ####[facility] Rdxejiuhjc4014 [place] [address]Dr. Farhat Leal Platelet mean volume (Bld) [Entitic vol] 9.6 fL Normal 9.5-13.5 [facility] Comment on above: Performed By: #### C BC ####[facility] Yjvaplbbqm3842 [place] [address]Dr. Farhat Leal PLT 163 103/ul Normal 150-450 [facility] Comment on above: Performed By: #### C BC ####[facility] Zgiksuwcgq0148 [place] [address]Dr. Farhat Leal RBC 4.20 106/ul Critically low 4.70-6.10 [facility] Comment on above: Performed By: #### C BC ####[facility] Imbbzlgmnt7458 [place] [address]Dr. Farhat Leal WBC 8.4 103/ul Normal 4.0-11.0 [facility] Comment on above: Performed By: #### C BC ####[facility] Lxmxrydtud2826 [place] [address]Dr. Farhat Leal POINT OF CARE GLUCOSEon 08-0 Glucose [Mass/Vol] 300 mg/dL Critically high 74-106 T [facility] Comment on above: Performed By: #### P OCGLUC ####[facility] Zdmcmiicol539126 [address] [place], [place] [address]Dr. Farhat Leal POTASSIUMon 09-19-2021 Potassium [Moles/Vol] 4.9 mmol/L Normal 3.5-5.1 [facility] Comment on above: Performed By: #### K ####[facility] Vkjcxshhok156626 [address] [place], [place] [address]Dr. Farhat Leal PTT HEPARIN MONITORon 2021 aPTT Coag (Bld) [Time] 81.0 s Critically high 39.5-54. 2 [facility] Comment on above: Result Comment: Test Repeated. Critical Value Verified Performed By: #### P TTHEP ####[facility] Cmojpiochd461326 [address] [place], [place] [address]Dr. Farhat Elvis aPTT Coag (Bld) [Time] 101.2 s Critically high 39.5-54. 2 [facility] Comment on above: Performed By: #### P TTHEP ####[facility] Ebdfcvjexn426726 [address] [place], [place] [address]Dr. Farhat Elvis aPTT Coag (Bld) [Time] 23.4 s Critically low 39.5-54.2 [facility] Comment on above: Result Comment: repe ated Performed By: #### P TTHEP ####[facility] Iqilaeapbe1235[address] [place], [place] [address]Dr. Farhat Leal CBC AUTO DIFFon 09-18-2021 BASO # 0.0 103/ul Normal 0.0-0.1 [facility] Comment on above: Performed By: #### C BC ####[facility] Esaeqqcpgr483326 [address] [place], [place] [address]Dr. Farhat Elvis BASO # 0.0 103/ul Normal 0.0-0.1 [facility] Comment on above: Performed By: #### C BC ####[facility] Rednzrqvlt9434[address] [place], [place] [address]DrSkylar Farhat Elvis Basophils/100 WBC (Bld) 0.4 % Normal 0.2-2.0 [facility] Comment on above: Performed By: #### C BC ####[facility] Zujfluqrhf[address] [place] [id number]. Farhat Leal Basophils/100 WBC (Bld) 0.4 % Normal 0.2-2.0 [facility] Comment on above: Performed By: #### C BC ####[facility] Xitfacuyvu1188 [place] [id number]. Farhat Leal EO # 0.1 103/ul Normal 0.0-0.7 [facility] Comment on above: Performed By: #### C BC ####[facility] Tbkyajikaj595[address] [place], [place] [address]Dr. Farhat Leal EO # 0.1 103/ul Normal 0.0-0.7 [facility] Comment on above: Performed By: #### C BC ####[facility] Nuxdkcjcsw4950[address] [place], [place] [id number]. Farhat Leal Eosinophils/100 WBC (Bld) 1.1 % Normal 0.9-7.0 [facility] Comment on above: Performed By: #### C BC ####[facility] Bvdqnsufqz8[address] [place], [place] [address]Dr. Farhat Leal Eosinophils/100 WBC (Bld) 0.8 % Critically low 0.9-7.0 The [facility] Comment on above: Performed By: #### C BC ####[facility] Zsqibfvvez2129[address] [place], [place] [id number]. Farhat Leal Erythrocyte distribution width (RBC) [Ratio] 12.6 % Normal 11.0-15.0 The [facility] Comment on above: Performed By: #### C BC ####[facility] Lkghoqcvhh075[address] [place], [place] [id number]. Farhat Leal Erythrocyte distribution width (RBC) [Ratio] 12.4 % Normal 11.0-15.0 The [facility] Comment on above: Performed By: #### C BC ####[facility] Ojnujjfnrw22[address] [place], [place] [id number]. Farhat Leal Hematocrit (Bld) [Volume fraction] 40.8 % Critically low 42.0-54.0 The [facility] Comment on above: Performed By: #### C BC ####[facility] [address]ffztalyrf62[address] [place] [id number]. Farhat Leal Hematocrit (Bld) [Volume fraction] 41.7 % Critically low 42.0-54.0 The [facility] Comment on above: Performed By: #### C BC ####[facility] Vcubwwvljy38[address] [place] [address]Dr. Farhat Leal Hemoglobin (Bld) [Mass/Vol] 13.6 g/dL Critically low 14.0-18.0 The [facility] Comment on above: Performed By: #### C BC ####[facility] Hdmnnnukpv4802 [place] [id number]. Farhat Leal Hemoglobin (Bld) [Mass/Vol] 14.1 g/dL Normal 14.0-18.0 [facility] Comment on above: Performed By: #### C BC ####[facility] Wwcsgoepjc6[address] [place], [place] [address]Dr. Farhat Leal IG # 0.08 10e3/ul Critically high 0.00-0.03 [facility] Comment on above: Performed By: #### C BC ####[facility] Ptecjxyuye256[address] [place], [place] [address]Dr. Farhat Leal IG # 0.06 10e3/ul Critically high 0.00-0.03 [facility] Comment on above: Performed By: #### C BC ####[facility] Zmyvzxzwza7[address] [place], [place] [address]Dr. Farhat Leal IG % 0.9 % Critically high 0.0-0.5 The [facility] Comment on above: Performed By: #### C BC ####[facility] Lgfmvfettf79[address] [place] [address]Dr. Farhat Leal IG % 0.6 % Critically high 0.0-0.5 The [facility] Comment on above: Performed By: #### C BC ####[facility] Vnnkrhmkfy7398[address] [place], [place] [address]Dr. Farhat Leal LYMPH # 0.8 103/ul Critically low 1.2-3.8 The [facility] Comment on above: Performed By: #### C BC ####[facility] Rbjeqerpsm5815 [place] [address]Dr. Farhat Leal LYMPH # 0.6 103/ul Critically low 1.2-3.8 The [facility] Comment on above: Performed By: #### C BC ####[facility] Oilyjzaacy1118 [place] [address]Dr. Farhat Leal Lymphocytes/100 WBC (Bld) 8.7 % Critically low 20.5-60.0 The [facility] Comment on above: Performed By: #### C BC ####[facility] Qznqrssodg0014 [place] [address]Dr. Frahat Leal Lymphocytes/100 WBC (Bld) 6.5 % Critically low 20.5-60.0 The [facility] Comment on above: Performed By: #### C BC ####[facility] Ooswswhhcd47[address] [place], [place] [address]Dr. Farhat Leal MANUAL DIFF REQ NO Normal The [facility] Comment on above: Performed By: #### C BC ####[facility] Lnfscuizrv7659[address] [place], [place] [address]Dr. Farhat Leal MANUAL DIFF REQ NO Normal The [facility] Comment on above: Performed By: #### C BC ####[facility] Gcdagmpmbr158[address] [place], [place] [address]Dr. Farhat Leal MCH (RBC) [Entitic mass] 31.6 pg Normal 25.9-34.0 The [facility] Comment on above: Performed By: #### C BC ####[facility] Gnqrdqtmhi42[address] [place] [address]Dr. Farhat Leal MCH (RBC) [Entitic mass] 31.6 pg Normal 25.9-34.0 The [facility] Comment on above: Performed By: #### C BC ####[facility] Buosxfupvp0386[address] [place], [place] [address]Dr. Farhat Leal MCHC (RBC) [Mass/Vol] 33.3 g/dL Normal 29.9-35.2 The [facility] Comment on above: Performed By: #### C BC ####[facility] Hrcbppuupu6579 [place] [phone]. Farhat Leal MCHC (RBC) [Mass/Vol] 33.8 g/dL Normal 29.9-35.2 The [facility] Comment on above: Performed By: #### C BC ####[facility] Jezhxbrqlv8823 [place] [address]Dr. Farhat Leal MCV (RBC) [Entitic vol] 94.9 fL Critically high 80.0-94.0 The [facility] Comment on above: Performed By: #### C BC ####[facility] Nvbjiqyndo9358 [place] [address]Dr. Farhat Leal MCV (RBC) [Entitic vol] 93.5 fL Normal 80.0-94.0 The [facility] Comment on above: Performed By: #### C BC ####[facility] Xddcencukn37[address] [place], [place] [address]Dr. Farhat Leal MONO # 1.0 103/ul Critically high 0.3-0.8 The [facility] Comment on above: Performed By: #### C BC ####[facility] Feefccljsz55[address] [place], [place] [address]Dr. Farhat Leal MONO # 1.0 103/ul Critically high 0.3-0.8 The [facility] Comment on above: Performed By: #### C BC ####[facility] Rahftudoka14[address] [place], [place] [address]Dr. Farhat Leal Monocytes/100 WBC (Bld) 11.3 % Normal 1.7-12.0 The [facility] Comment on above: Performed By: #### C BC ####[facility] Htskvqaoqp0040[address] [place], [place] [id number]. Farhat Leal Monocytes/100 WBC (Bld) 10.4 % Normal 1.7-12.0 The [facility] Comment on above: Performed By: #### C BC ####[facility] Cchqxjdgsn[address] [place], [place] [address]Dr. Farhat Leal NEUT # 6.9 103/ul Critically high 1.4-6.5 The [facility] Comment on above: Performed By: #### C BC ####[facility] Idhxhvodqs2886 [place] [address]Dr. Farhat Leal NEUT # 7.8 103/ul Critically high 1.4-6.5 The [facility] Comment on above: Performed By: #### C BC ####[facility] Svoauacxdk0238 [place] [address]Dr. Farhat Leal Neutrophils/100 WBC (Bld) 77.6 % Critically high 43.0-75.0 The [facility] Comment on above: Performed By: #### C BC ####[facility] Cucfniinrq4288 [place] [address]Dr. Farhat Leal Neutrophils/100 WBC (Bld) 81.3 % Critically high 43.0-75.0 The [facility] Comment on above: Performed By: #### C BC ####[facility] Ekkdevujch7[address] [place], [place] [address]Dr. Farhat Leal Platelet mean volume (Bld) [Entitic vol] 9.7 fL Normal 9.5-13.5 [facility] Comment on above: Performed By: #### C BC ####[facility] Bsvufggwnm05[address] [place], [place] [address]Dr. Farhat Leal Platelet mean volume (Bld) [Entitic vol] 9.9 fL Normal 9.5-13.5 [facility] Comment on above: Performed By: #### C BC ####[facility] Zmpetbxhhf4261 [place] [address]Dr. Farhat Leal PLT 171 103/ul Normal 150-450 The [facility] Comment on above: Performed By: #### C BC ####[facility] Buuhpvqxti9356 [place] [address]Dr. Farhat Leal PLT 169 103/ul Normal 150-450 The [facility] Comment on above: Performed By: #### C BC ####[facility] Dhhhvbanji7643 [place] [address]Dr. Farhat Leal RBC 4.30 106/ul Critically low 4.70-6.10 The [facility] Comment on above: Performed By: #### C BC ####[facility] Njbefrmpzj9562 [place], [place] [address]Gk. Farhat Leal RBC 4.46 106/ul Critically low 4.70-6.10 The [facility] Comment on above: Performed By: #### C BC ####[facility] Zoukvfhosc5382 [place], [place] [address]Xa. Farhat Leal WBC 8.9 103/ul Normal 4.0-11.0 The [facility] Comment on above: Performed By: #### C BC ####[facility] Lddxisbtel2049 [place], [place] [address]Jj. Farhat Leal WBC 9.6 103/ul Normal 4.0-11.0 The [facility] Comment on above: Performed By: #### C BC ####[facility] Wcglfzkwcr2213 [place], [place] [address]Az. Farhat Leal Covid-19 PCR (CVDTBH)on SARS-CoV-2 (COVID-19) RNA JOSH+probe Ql (Unsp spec) Not detected Normal NOT DETECTED The [facility] Comment on above: Result [...] for this test is supported by the Underwriting Account Representative of Health and Human Service's declaration that [...] be used). Performed By: #### C VDTBH ####[facility] Th[address]gxxbky7627 [place], [place] [address]StSkylar Leal PROF 14(COMP METB)on 022 Albumin [Mass/Vol] 2.5 g/dL Critically low 3.4-5.0 Th [facility] Comment on above: Performed By: #### T MYRIAM, CMP ####[facility] Zpijuldzyn90[address] [place], [place] [address]Dr. Farhat Leal Albumin [Mass/Vol] 2.6 g/dL Critically low 3.4-5.0 Th [facility] Comment on above: Performed By: #### C MP ####[facility] Iktmiznhor0410[address] [place], [place] [address]Dr. Farhat Leal Albumin/Globulin [Mass ratio] 0.7 {ratio} Normal [facility] Comment on above: Performed By: #### T MYRIAM, CMP ####[facility] Tsidfjgiip444[address] [place], [place] [address]Dr. Farhat Leal Albumin/Globulin [Mass ratio] 0.7 {ratio} Normal [facility] Comment on above: Performed By: #### C MP ####[facility] Nchwiwjsge1804[address] [place], [place] [address]Dr. Farhat Leal ALP [Catalytic activity/Vol] 83 U/L Normal 46-116 The [facility] Comment on above: Performed By: #### T MYRIAM, CMP ####[facility] Rztoopifpr6924[address] [place], [place] [address]Dr. Farhat Leal ALP [Catalytic activity/Vol] 88 U/L Normal 46-116 The [facility] Comment on above: Performed By: #### C MP ####[facility] Kiqenqrmgk269[address] [place], [place] [address]Dr. Farhat Leal ALT [Catalytic activity/Vol] 16 U/L Normal 16-63 The [facility] Comment on above: Performed By: #### T MYRIAM, CMP ####[facility] Kqcfwtvvcw897[address] [place], [place] [address]Dr. Madelynlorri Leal ALT [Catalytic activity/Vol] 15 U/L Critically low 16-63 The [facility] Comment on above: Performed By: #### C MP ####[facility] Nliczozyzr182[address] [place], [place] [address]Dr. Farhat Leal Anion gap [Moles/Vol] 9.7 mmol/L Normal [facility] Comment on above: Performed By: #### T SH, CMP ####[facility] Lsvfjxzgpa5784 [place] [address]Dr. Farhat Leal Anion gap [Moles/Vol] 11.7 mmol/L Normal [facility] Comment on above: Performed By: #### C MP ####[facility] Qwevshntsc6539 [place] [address]Dr. Farhat Leal AST [Catalytic activity/Vol] 27 U/L Normal 15-37 [facility] Comment on above: Performed By: #### T SH, CMP ####[facility] Jzbbuaotaz39[address] [place], [place] [address]Dr. Farhat Leal AST [Catalytic activity/Vol] 25 U/L Normal 15-37 [facility] Comment on above: Performed By: #### C MP ####[facility] Rffpkzccwa7794[address] [place], [place] [address]Dr. Farhat Leal Bilirubin [Mass/Vol] 0.5 mg/dL Normal 0.2-1.0 [facility] Comment on above: Performed By: #### T SH, CMP ####[facility] Nmzayvlbqy3[address] [place], [place] [address]Dr. Farhat Leal Bilirubin [Mass/Vol] 0.6 mg/dL Normal 0.2-1.0 [facility] Comment on above: Performed By: #### C MP ####[facility] Sylormrrlo6437[address] [place], [place] [address]Dr. Farhat Leal Calcium [Mass/Vol] 8.8 mg/dL Normal 8.5-10.1 [facility] Comment on above: Performed By: #### T SH, CMP ####[facility] Ygvokwetef794[address] [place], [place] [address]Dr. Farhat Leal Calcium [Mass/Vol] 8.9 mg/dL Normal 8.5-10.1 [facility] Comment on above: Performed By: #### C MP ####[facility] Qwlzfgawfz080[address] [place], [place] [address]Dr. Yilan Leal Chloride [Moles/Vol] 95 mmol/L Critically low 98-107 The [facility] Comment on above: Performed By: #### T SH, CMP ####[facility] Funnvulqut133[address] [place], [place] [address]Dr. Madelynlan Leal Chloride [Moles/Vol] 93 mmol/L Critically low 98-107 The [facility] Comment on above: Performed By: #### C MP ####[facility] Khulutsejz[address] [place], [place] [address]Dr. Yilan Leal CO2 [Moles/Vol] 30.5 mmol/L Normal 21.0-32.0 The [facility] Comment on above: Performed By: #### T SH, CMP ####[facility] Oxyfenekgu107[address] [place], [place] [address]Dr. Yilan Leal CO2 [Moles/Vol] 28.9 mmol/L Normal 21.0-32.0 The [facility] Comment on above: Performed By: #### C MP ####[facility] Edqvbackqf039[address] [place], [place] [address]Dr. Madelynlan Leal Creatinine [Mass/Vol] 2.18 mg/dL Critically high 0.70-1.30 The [facility] Comment on above: Performed By: #### T SH, CMP ####[facility] Xaixybcztz[address] [place], [place] [address]Dr. Madelynlan Leal Creatinine [Mass/Vol] 2.09 mg/dL Critically high 0.70-1.30 The [facility] Comment on above: Performed By: #### C MP ####[facility] Kumajknxug5[address] [place], [place] [address]Dr. Yilan Leal EGFR-AF DANISH 36 mL/min/1.73m2 Critically low >=60 The [facility] Comment on above: Performed By: #### T SH, CMP ####[facility] Siexwbfrww3[address] [place], [place] [address]Dr. Yilan Leal EGFR-AF DANISH 38 mL/min/1.73m2 Critically low >=60 The [facility] Comment on above: Performed By: #### C MP ####[facility] Vpftbjaalp0444 [place] [address]Dr. Madelynlan Leal EGFR-NON AF DANISH 30 mL/min/1.73m2 Critically low >=60 The [facility] Comment on above: Performed By: #### T MYRIAM, CMP ####[facility] Opteeynzro8059 [place] [address]Dr. Madelynlan Leal EGFR-NON AF DANISH 31 mL/min/1.73m2 Critically low >=60 The [facility] Comment on above: Performed By: #### C MP ####[facility] Pcvsztijec0411 [place] [address]Dr. Madelynlan Leal Globulin (S) [Mass/Vol] 3.5 g/dL Normal [facility] Comment on above: Performed By: #### T MYRIAM, CMP ####[facility] Iymxswmqot6756 [place] [address]Dr. Madelynlan Leal Globulin (S) [Mass/Vol] 3.7 g/dL Normal [facility] Comment on above: Performed By: #### C MP ####[facility] Ewblvuodlp3236 [place] [address]Dr. Madelynlan Leal Glucose [Mass/Vol] 141 mg/dL Critically high 74-106 [facility] Comment on above: Performed By: #### T MYRIAM, CMP ####[facility] Ylbviqfydk1025 [place] [address]Dr. Madelynlan Leal Glucose [Mass/Vol] 214 mg/dL Critically high 74-106 [facility] Comment on above: Performed By: #### C MP ####[facility] Exxelaewdo5540 [place] [address]Dr. Madelynlan Leal Potassium [Moles/Vol] 5.2 mmol/L Critically high 3.5-5.1 The [facility] Comment on above: Performed By: #### T SH, CMP ####[facility] Qmygkizthi8235 [place] [address]Dr. Yilan Leal Potassium [Moles/Vol] 5.6 mmol/L Critically high 3.5-5.1 The [facility] Comment on above: Performed By: #### C MP ####[facility] Nmwqdxqzan8022 [place] [address]Dr. Yilan Leal Protein [Mass/Vol] 6.0 g/dL Critically low 6.4-8.2 Th [facility] Comment on above: Performed By: #### T SH, CMP ####[facility] Kbjcglnkch45[address] [place] [address]Dr. Yilan Leal Protein [Mass/Vol] 6.3 g/dL Critically low 6.4-8.2 Th [facility] Comment on above: Performed By: #### C MP ####[facility] Qrkorfoxum7492 [place] [address]Dr. Yilan Leal Sodium [Moles/Vol] 130 mmol/L Critically low 136-145 Th [facility] Comment on above: Performed By: #### T SH, CMP ####[facility] Hhseofcmyf8[address] [place], [place] [address]Dr. Yilan Leal Sodium [Moles/Vol] 128 mmol/L Critically low 136-145 Th [facility] Comment on above: Performed By: #### C MP ####[facility] Xddpqiozid419[address] [place], [place] [address]Dr. Yilan Leal Urea nitrogen [Mass/Vol] 63.0 mg/dL Critically high 7.0-18.0 [facility] Comment on above: Performed By: #### T SH, CMP ####[facility] Szeukfnibf[address] [place], [place] [address]Dr. Yilan Leal Urea nitrogen [Mass/Vol] 65.0 mg/dL Critically high 7.0-18.0 [facility] Comment on above: Performed By: #### C MP ####[facility] Irmitwxgub7[address] [place], [place] [address]Dr. Yilan Leal Urea nitrogen/Creatinine [Mass ratio] 28.9 mg/mg Normal [facility] Comment on above: Performed By: #### T SH, CMP ####[facility] Uwlccchtro07[address] [place], [place] [address]Dr. Yilan Leal Urea nitrogen/Creatinine [Mass ratio] 31.1 mg/mg Normal The [facility] Comment on above: Performed By: #### C MP ####[facility] Ejtdayvwky19[address] [place] [address]Dr. Farhat Leal PROTIMEon 09-18-2021 INR Coag (PPP) [Relative time] 1.06 {INR} Normal [facility] Comment on above: Performed By: #### P T, PTT ####[facility] Nzvxdkwuqx7[address] [place] [address]Dr. Farhat Leal INR GUIDELINES SEE BELOW Normal The [facility] Comment on above: Result Comment: MALINA RED INR: 2.0 - 3.0 CONDITIONS NOT LISTED BELOW 2.5 - 3.5 FOR PROSTHETIC HEART VALVE REPLACEMENT 2.5 - 3.5 RECURRENT THROMBOSIS Performed By: #### P T, PTT ####[facility] Bqxkvafxqu8[address] [place] [address]Dr. Farhat Leal PT Coag (PPP) [Time] 11.4 s Normal 9.0-11.6 [facility] Comment on above: Performed By: #### P T, PTT ####[facility] Hpohfgbdfi13[address] [place] [address]Dr. Farhat Leal PTTon 09-18-2021 aPTT Coag (Bld) [Time] 27.9 s Normal 22.3-36.2 [facility] Comment on above: Performed By: #### P T, PTT ####[facility] Wsygjkrgpd75[address] [place] [address]Dr. Farhat Leal TSHon 09-18-2021 TSH 7.099 uIU/mL Critically high 0.358-3.740 [facility] Comment on above: Performed By: #### T SH, CMP ####[facility] Wpcaggvqhc2036 [place] [address]Dr. Farhat Leal US SALOME DOP LEG RTon 09-19-19 22 US SALOME DOP LEG RT Normal [facility] XR HIP RT 2 3V W PELVISon XR HIP RT 2 3V W PELVIS Normal [facility] Social History Date Type Detail Facility Start: 03-18-2023 Alcohol intake Ex-drinker (finding) [facility] Start: 02-26-2022 End: 10-20-2022 Sex Assigned At [facility] Work Phone: Start: 09-25-2021 History SDOH Financial 5 [facility] Start: 09-25-2021 History SDOH Food Worry 1 [facility] Start: 09-25-2021 History SDOH Transpo rt Med 2 [facility] Start: 09-14-2021 End: 01-12-2022 Exposure to SARS-CoV-2 (event) Not sure [facility] Start: 04-08-2021 End: 02-26-2022 Alcohol intake Current drinker of alcohol (finding) [facility] Start: 03-09-2011 End: 07-07-2022 Tobacco smoking status NHIS Ex-smoker [facility] Work Phone: Start: 03-09-2011 End: 10-20-2022 Cigarettes smoked current (pack per day) - Reported 1 [facility] Work Phone: Start: 03-09-2011 End: 02-26-2022 Tobacco use and exposure Smokeless tobacco non-user [facility] Start: 1945 Sex Assigned At Not on file C [facility] Start: 1945 Sex Assigned At Male F [facility] End: 02-15-1975 History of tobacco use Current smoker [facility] Work Phone: End: 02-15-1975 History of tobacco use Cigarette Smoker [facility] Work Phone: How hard is it for y ou to pay for the very basics like food, housing, medical care, and heating Not hard at all [facility] Work Phone: (I/We) worried wheth er (my/our) food would run out before (I/we) got money to buy more. Never true [facility] Work Phone: In the past 12 month s, was there a time when you were not able to pay the mortgage or rent on time? No [facility] Work Phone: How often to you hav e a drink containing alcohol? Never [facility] Vital Signs Date Time Vital Sign Value Performing Clinician Facility 03-18-2023 13:37-0500 Body temperature 98.01 [degF] Ni Petznick DO Work Phone: [facility] 03-18-2023 13:37-0500 Diastolic blood pressure 64 mm[Hg] Ni Petznick DO Work Phone: [facility] 03-18-2023 13:37-0500 Heart rate 72 /min Ni Petznick DO Work Phone: [facility] 03-18-2023 13:37-0500 SaO2% (BldA) [Mass fraction] 98 % Ni Petznick DO Work Phone: [facility] 03-18-2023 13:37-0500 Systolic blood pressure 118 mm[Hg] Ni Petznick DO Work Phone: [facility] 07-20-2022 13:35-0400 Body temperature 97.4 [degF] DO Devon Ball Work Phone: [facility] 07-20-2022 13:35-0400 Diastolic blood pressure 50 mm[Hg] DO Devon Ball Work Phone: [facility] 07-20-2022 13:35-0400 Heart rate 67 /min DO Devon Ball Work Phone: [facility] 07-20-2022 13:35-0400 Respiratory rate 20 /min DO Devon Ball Work Phone: [facility] 07-20-2022 13:35-0400 Systolic blood pressure 98 mm[Hg] DO Devon Ball Work Phone: [facility] 06-29-2022 14:46-0400 Body height 193.04 cm DO Devon Ball Work Phone: [facility] 02-26-2022 13:11-0500 Body temperature 96.6 [degF] Hina Peterson MD Work Phone: [facility] 02-26-2022 13:11-0500 Diastolic blood pressure 75 mm[Hg] Hina Peterson MD Work Phone: [facility] 02-26-2022 13:11-0500 Heart rate 75 /min Hina Peterson MD Work Phone: [facility] 02-26-2022 13:11-0500 Systolic blood pressure 88 mm[Hg] Hina Peterson MD Work Phone: [facility] 02-05-2022 08:29-0500 Body temperature 96.69 [degF] [facility] Work Phone: [facility] 02-05-2022 08:29-0500 Diastolic blood pressure 42 mm[Hg] [facility] Work Phone: [facility] 02-05-2022 08:29-0500 Heart rate 79 /min [facility] Work Phone: [facility] 02-05-2022 08:29-0500 SaO2% (BldA) [Mass fraction] 100 % [facility] Work Phone: [facility] 02-05-2022 08:29-0500 Systolic blood pressure 72 mm[Hg] [facility] Work Phone: [facility] 01-12-2022 11:00-0500 Diastolic blood pressure 54 mm[Hg] Alissa Major BOATSWAINS MATE.NETWORK COORDINATOR Work Phone: [facility] 01-12-2022 11:00-0500 Heart rate 88 /min Alissa Major BOATSWAINS MATE.NETWORK COORDINATOR Work Phone: [facility] 01-12-2022 11:00-0500 SaO2% (BldA) [Mass fraction] 93 % Alissa Major BOATSWAINS MATE.NETWORK COORDINATOR Work Phone: [facility] 01-12-2022 11:00-0500 Systolic blood pressure 96 mm[Hg] Alissa Major BOATSWAINS MATE.NETWORK COORDINATOR Work Phone: [facility] 01-12-2022 10:12-0500 Body temperature 97.9 [degF] Alissa Major BOATSWAINS MATE.NETWORK COORDINATOR Work Phone: [facility] 01-12-2022 10:12-0500 Respiratory rate 18 /min Alissa Major BOATSWAINS MATE.NETWORK COORDINATOR Work Phone: [facility] 11-17-2021 15:59-0400 Body height 193 cm No Reeder DO Work Phone: [facility] 11-17-2021 15:59-0400 Body weight 111.58 kg No Reeder DO Work Phone: [facility] 11-17-2021 15:59-0400 Diastolic blood pressure 59 mm[Hg] No Reeder DO Work Phone: [facility] 11-17-2021 15:59-0400 Heart rate 86 /min No Reeder DO Work Phone: [facility] 11-17-2021 15:59-0400 SaO2% (BldA) [Mass fraction] 97 % No Reeder DO Work Phone: [facility] 11-17-2021 15:59-0400 Systolic blood pressure 104 mm[Hg] No Reeder DO Work Phone: [facility] Clinical Notes 06-05-2021 to 05-19-2023 Note Date & Type Note Facility 05-19-2023 Note [place] Electrophysiology Progress Note Reason for visit: follow [...] at about 50-60 systolic. patient with friend/ coach tour driver from facility, we will take patient to the ER for evaluation ---- --------- Per dr. Alvarez 03/2021 Mr. Almonte, [place] , presents to clinic for routine follow [...] of the right coronary artery with robust clwl-lo-vfqjr collaterals. 5. Normal global left ventricular systolic [...] Follow up with Dr. Galvez in the [facility] in the next 2 weeks; he may follow up with Dr. Orosco as needed for interventional issues. 5. Follow up wi (more content not included)... [facility] 04-11-2023 Evaluation note Encounter Date Diagnosis Assessment [...] (ICD-10 - Z89.619) WC dependent. 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 He is being transported by a coach tour driver. 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 CONTINUOUS BLOOD GLUC SENSOR (Rococo SoftwareSTYLE SHAAN 14 DAY SENSOR) MISC Inject 1 [...] mouth in the morning. documented in this encounterCass [facility] [id number] Evaluation note* Encounter Date Diagnosis Assessment Notes [...] are maintaining regular scheduled appts with their senior cyber security analyst. No bleeding complications Dec, Hyperlipidemia LDL [...] (current) use of insulin (ICD-10 - Z79.4) [facility] 10-26-2023 Evaluation note* Encounter Date Diagnosis Assessment Notes Treatment Notes Treatment Clinical Notes Nov, Longstanding persistent atrial fibrillation (ICD-10 - I48.11) This patient is in NSR or rate controlled. This patient is anticoagulated to prevent thromboembolic events. They are maintaining regular scheduled appts with their senior cyber security analyst. No bleeding complications Nov, Hyperlipidemia LDL [...] Z94.0) Monthly labs to transplant clinic Nov, long-term (current) use of insulin (ICD-10 - Z79.4) [facility] 09-28-2023 Evaluation note* Encounter Date Diagnosis [...] are maintaining regular scheduled appts with their senior cyber security analyst. No bleeding complications Oct, Type 1 [...] Z94.0) Continue routine surveillance labs. 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 DX Code Needed. 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 No bleeding complications Sep, Type 1 [...] risk for cerebrovascular and cardiovascular disease. Sep, long-term (current) use of insulin (ICD-10 - Z79.4) Sep, Kidney transplant status (ICD-10 - Z94.0) f/u transplant clinic Continue surveillance labs [facility] 08-08-2023 Miscellaneous Notes* Telephone Encounter - Ariadna Mcdowell Tech - 09/22/2022 8:58 AM EDT Pharmacy requesting refills as follows: Requested Prescriptions Pending Prescriptions Disp Refills tacrolimus IR (PROGRAF) 1 mg capsule Sig: Take 1 capsule by mouth DAILY AT 6 PM. Please review and advise. Ariadna Mcdowell, documented in [facility] encounter[facility] Evaluation note* Encounter Date Diagnosis Assessment Notes Treatment Notes Treatment Clinical Notes Aug, Longstanding persistent atrial fibrillation (ICD-10 - I48.11) This patient is in NSR or rate controlled. This patient is anticoagulated to prevent thromboembolic events. They are maintaining regular scheduled appts with their senior cyber security analyst. No s/s bleeding Aug, Type 1 [...] risk for cerebrovascular and cardiovascular disease. Aug, long-term (current) use of insulin (ICD-10 - Z79.4) Aug, Kidney transplant status (ICD-10 - Z94.0) Continue close surveillance w/ labs [facility] Other 07-26-2023 NoteUT Electrophysiology Consult Note Reason [...] at about 50-60 systolic. patient with friend/ coach tour driver from facility, we will take patient [...] of the right coronary artery with robust nsne-tp-fdcji collaterals. 5. Normal global left ventricular systolic [...] Follow up with Dr. Galvez in the [facility] in the next 2 weeks; he may follow up with Dr. Orosco as needed for interventional issues. 5. Follow up with Dr. Devon Moreira as scheduled. PMH: Past Medical History: Diagnosis Date Abnormal ECG Arrhythmia Atrial fibrillation ([facility]/HCC) Chronic kidney disease Coronary artery disease Diabetes mellitus (CMS/HCC) (more content not included)...[facility]07-26-2023 NotePatient here for 1.5 year follow up and device check. Lightheaded in the office today, as BP is very low. He denies chest pain, SOB, palpitations, and bleeding on warfarin. Had routine labs last week. Review of Systems Musculoskeletal: Positive for arthritis, joint pain and myalgias. Neurological: Positive for light-headedness. All other systems reviewed and are negative.[facility] 08-06-2022 Evaluation note* Encounter Date Diagnosis Assessment [...] are maintaining regular scheduled appts with their senior cyber security analyst. No bleeding complications Jul, Type 1 [...] for cerebrovascular and cardiovascular disease. 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) use of insulin (ICD-10 - Z79.4) Jul, Kidney transplant status (ICD-10 - Z94.0) Monthly labs, ongoing surveillance from transplant clinic [facility] 05-15-2023 Progress note Author Sadia Aguilar [facility] June 29, 2022 2:47pm Note Date/Time June 29, 2022 2:46p m [facility] [address] [place] [address] Wound Center Provider Note Signed Patient: Alex Almonte MR#: [id number] : 1945 Acct:[id number] Age/Sex: 76 / M Copies to: DO Sadia Whyte APRN~ HPI Date of Visit Date of Visit: Date of Service: 06/29/2022 Time of Service: 14:45 Narrative HPI: 11/15/22 Alex is a 76 year old male presenting to [facility] wound care for aninitial visit for eval and treatment of a sacral/coccyx area pressure ulcer. He resides at [facility]. There is an LODGING FACILITIES ATTENDANT present for the visit. Medicalhoney gel [...] from initial visit here Mode of Arrival/ Manager Agency: Facility vehicle Assistive Device Used Today: Wheelchair and Indra Lives with:: Care/Nursing Facility Appetite Description: Within Normal Limits Who helps w/ dressing change?: Nursing Facility Why Do You Need Help?: Can't Reach Ulcer, Limited mobility and Taxing effort to leave home Smoking Status: Former smoker [facility] Medical History (Updated 03/03/22 @ 14:41 by [...] Ulcer/Injury Staging: Unstageable Bed Appearance: Beefy Red, Racetrack, Yellow and Rolled Edges Percent of Wound [...] signed by DAVID Aguilar> 06/29/221446 [facility] Work Phone: 1(533) 646-330305-11-2023 Evaluation note* Encounter Date Diagnosis Assessment Notes [...] are maintaining regular scheduled appts with their senior cyber security analyst. No bleeding complications June, Hyperlipidemia LDL goal <100 (ICD-10 - E78.5) Instructed on diet and exercise with continued statin therapy.Discussed the beneficial effects of lowering cholesterol in reducing the risk for cerebrovascular and cardiovascular disease. June, long-term (current) use of insulin (ICD-10 - Z79.4) June, Kidney transplant status (ICD-10 - Z94.0) No s/s rejection [facility] 04-24-2023 Progress note Author Sadia Aguilar [facility] June 08, 2022 2:10pm Note Date/Time June 08, 2022 2:1 0pm [facility] [address] [place] [address] Wound Center Provider Note Signed Patient: Alex Almonte MR#: [id number] : 1945 Acct:[id number] Age/Sex: 76 / M Copies to: DO Sadia Whyte APRN~ HPI Date of Visit Date of Visit: Date of Service: 06/08/2022 Time of Service: 14:07 Narrative HPI: 12/30/21 Alex is a 76 year old male presenting to [facility] wound care for aninitial visit for eval and treatment of a sacral/coccyx area pressure ulcer. He resides at [facility]. There is an LODGING FACILITIES ATTENDANT present for the visit. Medicalhoney gel [...] from initial visit here Mode of Arrival/ Manager Agency: Facility vehicle Assistive Device Used Today: Wheelchair and Indra Lives with:: Care/Nursing Facility Appetite Description: Within Normal Limits Who helps w/ dressing change?: Nursing Facility Why Do You Need Help?: Can't Reach Ulcer, Limited mobility and Taxing effort to leave home Smoking Status: Former smoker [facility] Medical History (Updated 03/03/22 @ 14:41 by [...] Ulcer/Injury Staging: Unstageable Bed Appearance: Beefy Red, Racetrack, Yellow and Rolled Edges Percent of Wound [...] by DAVID Aguilar> 06/08/22 1410 [facility] Work Phone: 1(510) 402-907004-21-2023 Evaluation note* Encounter Date Diagnosis Assessment Notes [...] are maintaining regular scheduled appts with their senior cyber security analyst. 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 No open ulcerations present Pain controlled [facility] 03-27-2023 Progress note Author Sadia Aguilar [facility] May 11, 2022 1:41pm Note Date/Time May 11, 2022 1:4 0pm [facility] [address] [place] [address] Wound Center Provider Note Signed Patient: Alex Almonte MR#: [id number] : 1945 Acct:[id number] Age/Sex: 76 / M Copies to: DO Sadia Whyte, BOATSWAINS MATE~ HPI Date of Visit Date of Visit: Date of Service: 05/11/2022 Time of Service: 13:38 Narrative HPI: 12/30/21 Alex is a 76 year old male presenting to [facility] wound care for aninitial visit for eval and treatment of a sacral/coccyx area pressure ulcer. He resides at [facility]. There is an LODGING FACILITIES ATTENDANT present for the visit. Medicalhoney gel [...] from initial visit here Mode of Arrival/ Manager Agency: Facility vehicle Assistive Device Used Today: Wheelchair and Indra Lives with:: Care/Nursing Facility Appetite Description: Within Normal Limits Who helps w/ dressing change?: Nursing Facility Why Do You Need Help?: Can't Reach Ulcer, Limited mobility and Taxing effort to leave home Smoking Status: Former smoker [facility] Medical History (Updated 03/03/22 @ 14:41 by [...] Ulcer/Injury Staging: Unstageable Bed Appearance: Beefy Red, Racetrack and Yellow Percent of Wound Bed Granulated/Red: [...] signed by DAVID Aguilar> 05/11/22 1341 [facility] Work Phone: 1(443) 362-409303-23-2023 Evaluation note* Encounter Date Diagnosis Assessment Notes [...] are maintaining regular scheduled appts with their senior cyber security analyst. Apr, Type 1 diabetes mellitus with [...] are reviewed at the office visit Apr, long-term (current) use of insulin (ICD-10 - Z79.4) Apr, Kidney transplant status (ICD-10 - Z94.0) Serial labs by clinic tatiana Oshea [facility] Other 03-10-2023 NoteHNO ID: [id number] Author: Keyur Brown MD Service: ? Author Type: Physician Type: Progress Notes Filed: 04/24/2022 10:32 AM Note Text: Encounter opened in error, patient not seen.[facility]02-28-2023 Progress note Author Sadia Aguilar [facility] April 14, 2022 2:19pm Note Date/Time April 14, 2022 2:18pm [facility] [address] [place] [address] Wound Center Provider Note Signed Patient: Alex Almonte MR#: [id number] : 1945 Acct:[id number] Age/Sex: 76 / M Copies to: DO Sadia Whyte, DAVID~ HPI Date of Visit Date of Visit: Date of Service: 04/14/2022 Time of Service: 14:18 Narrative HPI: 12/30/21 Alex is a 76 year old male presenting to [facility] wound care for aninitial visit for eval and treatment of a sacral/coccyx area pressure ulcer. He resides at [facility]. There is an LODGING FACILITIES ATTENDANT present for the visit. Medicalhoney gel [...] from initial visit here Mode of Arrival/ Manager Agency: Facility vehicle Assistive Device Used Today: Wheelchair and Indra Lives with:: Care/Nursing Facility Appetite Description: Within Normal Limits Who helps w/ dressing change?: Nursing Facility Why Do You Need Help?: Can't Reach Ulcer, Limited mobility and Taxing effort to leave home Smoking Status: Former smoker [facility] Medical History (Updated 03/03/22 @ 14:41 by [...] Ulcer/Injury Staging: Unstageable Bed Appearance: Beefy Red, Racetrack and Yellow Percent of Wound Bed Granulated/Red: [...] signed by DAVID Aguilar> 04/14/22 141 [facility] Work Phone: 1(824) 561-695202-16-2023 NotePatient Outreach (KIDMMN) ALEX ALMONTE ([id number]) 1945 M TRN Date Time Provider Department 04/02/22 VAN OLIVAREZ During your visit today, we recorded the following information about you: Allergies As of Date: 04/02/2022 Noted Allergy Reaction PYRIDOSTIGMINE BROMIDE 08/04/2021 8 - GI Upset Date Reviewed: 02/26/2022 Reviewed by: Braden Abel MA - Fully Assessed Visit Diagnosis:Screening for genitourinary condition [Z13.89] Order(s):URINALYSIS, REFLEX MICROSCOPIC [RYP2862] Order #: [id number] Prescriptions as of 04/06/2022 - tacrolimus IR [...] by mouth daily with lunch. 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 UNCOMPL ADULT-UNCONTRLLED [UYQ1975] 02/24/2002 KIDNEY TRANSPLANT STATUS [Z94.0] 09/07/2003 PROPHYLACTIC IMMUNOTHERAPY [Z29.8] 07/30/2006 [facility] STEROIDS [LMC5016] 07/30/2006 VITAMIN D DEFICIENCY NOS [E55.9] 09/07/2008 [...] perfusion [R09.89] 09/30/2021 PAD (peripheral artery disease) ([facility]) [I73.9] 09/26/2021 Osteomyelitis (HCC) [M86.9] 11/29/2021 Class 1 obesity due to excess calories with ser*11/29/2021 Mixed hyperlipidemia due to type 2 diabetes myles*11/29/2021 Type 2 diabetes mellitus with diabetic peripher*11/29/2021 Atherosclerosis of [place] artery of extremity w*11/29/2021 Malnutrition of moderate degree (HCC) [E44.0] 12/01/2021 Dermatitis associated with moisture [L30.8] 12/04/2021 Encounter Status:Closed by CONCETTA HOBBS on 04/06/22[facility] 03-30-2022 Miscellaneous Notes* Telephone Encounter - Van Olivarez APRN.CNP - 03/30/2022 12:16 PM EST The following approved medication requests have been transmitted electronically. Requested Prescriptions Signed Prescriptions Disp Refills tacrolimus IR (PROGRAF) 1 mg capsule 180 capsule 4 Sig: TAKE 2 CAPSULES BY MOUTH DAILY AT 6AM*Z94.0* Authorizing Provider: VAN OLIVAREZ APRN.CNP * Telephone Encounter - Katina Dunia - 03/23/2022 11:30 AM EST Patient's request for medication is as follows: Requested Prescriptions Pending Prescriptions Disp Refills tacrolimus IR (PROGRAF) 1 mg capsule [Pharmacy Med Name: TACROLIMUS 1 MG CAPSULE (IR)] 180 capsule 4 Sig: TAKE 2 CAPSULES BY MOUTH DAILY AT 6AM*Z94.0* Please approve the above prescription(s) to electronically send to pharmacy. Binhvaibhav Dunia documented in this encounterMercy Hospital02-07-2023 Progress note Author Sadia Aguilar [facility] March 24, 2022 3:00pm Note Date/Time March 24, 2022 2 :59pm [facility] [address] [place] [address] Wound Center Provider Note Signed Patient: Alex Almonte MR#: [id number] : 1945 Acct:[id number] Age/Sex: 76 / M Copies to: DO Sadia Whyte APRN~ HPI Date of Visit Date of Visit: Date of Service: 03/24/2022 Time of Service: 14:58 Narrative HPI: 12/30/21 Alex is a 76 year old male presenting to [facility] wound care for aninitial visit for eval and treatment of a sacral/coccyx area pressure ulcer. He resides at [facility]. There is an LODGING FACILITIES ATTENDANT present for the visit. Medicalhoney gel [...] from initial visit here Mode of Arrival/ Manager Agency: Facility vehicle Assistive Device Used Today: Wheelchair and Indra Lives with:: Care/Nursing Facility Appetite Description: Within Normal Limits Who helps w/ dressing change?: Nursing Facility Why Do You Need Help?: Can't Reach Ulcer, Limited mobility and Taxing effort to leave home Smoking Status: Former smoker [facility] Medical History (Updated 03/03/22 @ 14:41 by [...] Ulcer/Injury Staging: Unstageable Bed Appearance: Beefy Red, Racetrack and Yellow Percent of Wound Bed Granulated/Red: [...] by DAVID Aguilar> 03/24/22 1500 [facility] Work Phone: 1(268) 142-768101-17-2023 Progress note Author Sadia Aguilar [facility] March 03, 2022 2:41pm Note Date/Time March 03, 2022 2 :41pm [facility] [address] [place] [address] Wound Center Provider Note Signed Patient: Alex Almonte MR#: [id number] : 1945 Acct:[id number] Age/Sex: 76 / M Copies to: Devon Moreira,DO Sadia Aguilar, BOATSWAINS MATE~ HPI Date of Visit Date of Visit: Date of Service: 03/03/2022 Time of Service: 14:38 Narrative HPI: 12/30/21 Alex is a 76 year old male presenting to [facility] wound care for aninitial visit for eval and treatment of a sacral/coccyx area pressure ulcer. He resides at [facility]. There is an LODGING FACILITIES ATTENDANT present for the visit. Medicalhoney gel [...] from initial visit here Mode of Arrival/ Manager Agency: Facility vehicle Assistive Device Used Today: Wheelchair and Indra Lives with:: Care/Nursing Facility Appetite Description: Within Normal Limits Who helps w/ dressing change?: Nursing Facility Why Do You Need Help?: Can't Reach Ulcer, Limited mobility and Taxing effort to leave home Smoking Status: Former smoker [facility] Medical History (Updated 03/03/22 @ 14:41 by [...] Ulcer Pressure Ulcer/Injury Staging: Unstageable Bed Appearance: Racetrack and Yellow Percent of Wound Bed Granulated/Red: 90 Percent of Devitalized: 10 Length (cm): 2.2 Width (cm): 1.8 Depth (cm): 1.9 CM Sq: 3.960 Surrounding Tissue Appearance: Racetrack, Hyperpigmented and Satellite lesions Surrounding Tissue Temp: [...] by DAVID Aguilar> 03/03/22 1441 [facility] Work Phone: 1([phone]) 118-710301-13-2023 Miscellaneous Notes* Telephone Encounter - RAUL Davidson - 02/27/2022 10:24 AM EST Patient phones requesting refills as follows: Per pts sister takes 1 mg in AM and 1 mg in PM Requested Prescriptions Pending Prescriptions Disp Refills tacrolimus IR (PROGRAF) 1 mg capsule Sig: Take 2 capsules by mouth DAILY (6 AM). Please review and advise. RAUL Davidson documented in this encounterMercy Hospital01-12-2023 NoteHNO ID: [id number] Author: Hina Peterson MD Service: ? 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 Patient on mycophenolate mofetil , cellcept and prednisone Mixed hyperlipidemia due to type 2 diabetes mellitus ([facility]) 11/29/2021 Osteomyelitis (HCC) 11/29/2021 Paroxysmal atrial fibrillation ([facility]) Renal transplant, status post SA node dysfunction ([facility]) s/p pacemaker Type 2 diabetes mellitus with diabetic neuropathy, with long-term current use of insulin ([facility]) 02/24/2002 PAST SURGICAL HISTORY Procedure [...] by mouth daily with lunch. Magic Cup [place] with lunch aspirin, enteric coated (ASPIRIN, ENTERIC COATED) 81 mg EC tablet Take 1 tablet by mouth once daily. predniSONE (DELTASONE) 5 mg tablet TAKE 1 TABLET BY MOUTH EVERY DAY oxyCODONE IR (ROXICODONE) 5 mg immediate release tablet 1-2 tablets by ORAL/FEEDING TUBE route every 3 hours as needed. Food Supplement, Lactose-Free (ENSURE MAX (more content not included)... [facility]01-12-2023 History of Present illness Narrative* Hina Peterson MD - 02/26/2022 4:25 PM EST Images from the original note were not included. Heart , Vascular and Thoracic [place] DEPARTMENT OF VASCULAR SURGERY OUTPATIENT VISIT DATE [...] maxwell and sutures were removed at the [facility] facility. He comes here with a lateral wound eschar. He denies any fevers, chills, or any drainage. He is on anticoagulation. 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 Patient on mycophenolate mofetil ,cellcept and prednisone Mixed hyperlipidemia due to type 2 diabetes mellitus ([facility]) 11/29/2021 Osteomyelitis ([facility]) 11/29/2021 Paroxysmal atrial fibrillation ([facility]) Renal transplant, status post SA node dysfunction ([facility]) s/p pacemaker Type 2 diabetes mellitus with diabetic neuropathy, with long-term current use of insulin ([facility]) 02/24/2002 PAST SURGICAL HISTORY Procedure [...] by mouth daily with lunch. Magic Cup [place] with lunch aspirin, enteric coated (ASPIRIN, ENTERIC [...] TIME: 4:26 PM documented in this encounterMercy Hospital01-05-2023 Miscellaneous Notes* Telephone Encounter - Gwen [...] Home and cell number(Ask for Alex's nurse) [phone] Diagnosis 4 mo f/u wound check Yumiko Mcclain documented in this encounterMercy Hospital01-05-2023 Miscellaneous Notes* Telephone Encounter - Augusta Medrano RN - 02/19/2022 11:11 AM EST Alex Almonte's nursing facility, [facility], called regarding elevated tacrolimus level (23.9). Spoke with bedside nurse, mukul Enriquez. Level is from last week- unable to clearly determine if medications were held prior to lab work. Reviewed with nurse morning labs should occur prior to lab draws. Patient is scheduled for repeat labs tomorrow. Will assess new level. Augusta Medrano RN documented in this [facility]01-04-2023 Miscellaneous Notes* Telephone Encounter - Matrina Rossi MD - 02/18/2022 10:35 AM EST [...] Mercedez Tavares MA documented in this encounterMercy Hospital12-27-2022 Progress note Author Sadia Aguilar [facility] February 10, 2022 3:47pm Note Date/Time February 10, 2022 3:47pm [facility] [address] [place] [address] Wound Center Provider Note Signed Patient: Alex Almonte MR#: [id number] : 1945 Acct:[id number] Age/Sex: 76 / M Copies to: DO Sadia Whyte APRN~ HPI Date of Visit Date of Visit: Date of Service: 02/10/2022 Time of Service: 15:44 Narrative HPI: 12/30/21 Alex is a 76 year old male presenting to [facility] wound care for aninitial visit for eval and treatment of a sacral/coccyx area pressure ulcer. He resides at [facility]. There is an LODGING FACILITIES ATTENDANT present for the visit. Medicalhoney gel [...] from initial visit here Mode of Arrival/ Manager Agency: Facility vehicle Assistive Device Used Today: Wheelchair and Indra Lives with:: Care/Nursing Facility Appetite Description: Within Normal Limits Who helps w/ dressing change?: Nursing Facility Why Do You Need Help?: Can't Reach Ulcer, Limited mobility and Taxing effort to leave home Smoking Status: Former smoker [facility] Medical History (Updated 01/20/22 @ 14:21 by [...] Ulcer Pressure Ulcer/Injury Staging: Unstageable Bed Appearance: Racetrack and Yellow Percent of Wound Bed Granulated/Red: 90 Percent of Devitalized: 10 Length (cm): 2.5 Width (cm): 2.3 Depth (cm): 2.1 CM Sq: 5.750 Surrounding Tissue Appearance: Racetrack, Hyperpigmented and Satellite lesions Surrounding Tissue Temp: [...] Signed By: <Electronically signed by DAVID Aguilar> 02/10/221546 [facility] Work Phone: 1(473) 138-215512-22-2022 NoteHNO ID: [id number] Author: Asia Pike MD Service: ? Author Type: Physician Type: Progress Notes Filed: 02/05/2022 9:38 AM Note Text: [facility] [place] Transplant Follow up Portions of this note [...] and snacks patient declined. Indra scale at [facility]: 166.2 lbs per patient. Bed sore on coccyx causing discomfort. Being changed regularly at [facility]- reported to be smaller around but still as deep. Patient not very up to date with medications. Patient brought paperwork from [employer] with all medications being received. Patient unsure if they have been drawing labs regularly. Last Tac from 01/19: 12.9 and K 5.9. In need of current labs. Lab orders will be sent with patient and follows as below: Kidney and Pancreas Transplant Standing Lab Orders [address] [place], [place] [address] February 05, 2022 Alex Almonte 1945 [id number] STANDARD TESTING: Diagnosis Codes: Z94.0 Kidney Transplant [...] AT YOUR LABORATORY FACILITY AND FAX TO [phone]. PLEASE CALL [phone]. Provider: Dr. Pike Current Outpatient Medications Medication [...] by mouth daily with lunch. Magic Cup [place] with lunch aspirin, enteric coated (ASPIRIN, ENTERIC COATED) 81 mg EC tablet Take 1 tablet by mouth once daily. atorvastatin (LIPITOR) 40 mg tablet 1 tablet by ORAL/FEEDING TUBE route daily at bedtime. (more content not included)...[facility]12-22-2022 History of Present illness Narrative* Asia Pike MD - 02/05/2022 8:20 AM EST Images from the original note were not included. [facility] [place] Transplant Follow up Portions of this note [...] date with medications. Patient brought paperwork from [employer] with all medications being received. Patient unsure if they have been drawing labs regularly. Last Tac from 01/19: 12.9 and K 5.9. In need of current labs. Lab orders will be sent with patient and follows as below: Kidney and Pancreas Transplant Standing Lab Orders [address] [place], [place] [address] February 05, 2022 Alex Almonte 1945 [id number] STANDARD TESTING: Diagnosis Codes: Z94.0 Kidney Transplant [...] AT YOUR LABORATORY FACILITY AND FAX TO [phone]. PLEASE CALL [phone]. Provider: Dr. Pike Current Outpatient Medications Medication [...] by mouth daily with lunch. Magic Cup [place] with lunch aspirin, enteric coated (ASPIRIN, ENTERIC [...] All other system reviews negative. Augusta Medrano roof fitter: February 05, 2022 9:34 AM I have [...] Asia Pike MD documented in this encounterMercy Hospital12-06-2022 Progress note Author Sadia Aguilar [facility] January 20, 2022 2:21pm Note Date/Time January 20, 2022 2 :21pm [facility] [address] [place] [address] Wound Center Provider Note Signed Patient: Alex Almonte MR#: [id number] : 1945 Acct:[id number] Age/Sex: 76 / M Copies to: DO Sadia Whyte APRN~ HPI Date of Visit Date of Visit: Date of Service: 01/20/2022 Time of Service: 14:17 Narrative HPI: 12/30/21 Alex is a 76 year old male presenting to [facility] wound care for aninitial visit for eval and treatment of a sacral/coccyx area pressure ulcer. He resides at [facility]. There is an LODGING FACILITIES ATTENDANT present for the visit. Medicalhoney gel [...] from initial visit here Mode of Arrival/ Manager Agency: Facility vehicle Assistive Device Used Today: Wheelchair and Indra Lives with:: Care/Nursing Facility Appetite Description: Within Normal Limits Who helps w/ dressing change?: Nursing Facility Why Do You Need Help?: Can't Reach Ulcer, Limited mobility and Taxing effort to leave home Smoking Status: Former smoker [facility] Medical History (Updated 01/20/22 @ 14:21 by [...] Ulcer Pressure Ulcer/Injury Staging: Unstageable Bed Appearance: Racetrack and Yellow Percent of Wound Bed Granulated/Red: 40 Percent of Devitalized: 60 Length (cm): 5.2 Width (cm): 3.4 Depth (cm): 1.8 CM Sq: 17.680 Surrounding Tissue Appearance: Racetrack and Hyperpigmented Surrounding Tissue Temp: Warm Drainage [...] signed by DAVID Aguilar> 01/20/22 1421 [facility] Work Phone: [phone]) 205-168912-06-2022 Miscellaneous Notes* Telephone Encounter - Van Olivarez APRN.CNP - 01/20/2022 1:12 PM EST Labs noted from yesterday. Pt is currently residing at [facility], I spoke with the Nurse, the results has been addressed by Physician caring for pt. He had been placed on Chlor Con and this has been discontinued and hyperkalemia has been treated. Van Olivarez APRN.CNP documented in this encounterMercy Hospital11-28-2022 Surgical operation note* Brief Op Note - Misbah Landis PA-C - 01/12/2022 10:41 AM EST BRIEF OPERATIVE / PROCEDURE NOTE LOG ID: [id number] SURGERY/PROCEDURE DATE: 01/12/2022 INCISION/PROCEDURE START TIME: 10:32 AM INCISION CLOSE/PROCEDURE END TIME: 10:35 AM SURGEON(S)/PROCEDURALIST(S) AND HEAD BELLHOP CAPTAIN(S): Misbah Landis PA-C SURGERY/PROCEDURE(S): Removal tunneled vascular access catheter under local anesthesia ANESTHESIA: Procedural Sedation FINDINGS: Catheter removed intact ESTIMATED BLOOD LOSS: 0 ml SPECIMENS: None COMPLICATIONS: None PRE-OP/PRE-PROCEDURE DIAGNOSIS: Foot Ulcer POST-OP/POST-PROCEDURE DIAGNOSIS: Same as Preop SIGNATURE: Misbah Landis PA-C PATIENT NAME: Alex Almonte DATE: January 12, 2022 TIME: 10:42 AM documented in this encounterMercy Hospital11-22-2022 Nurse Note* Laxmi Archibald RN - 01/06/2022 1:55 PM EST Pre-procedure instructions: Contacted patient's sister, Munira Brothers and nurse at [facility], Jada ([phone]) andconfirmed appt. for Gerhard removal scheduled on 01/12/22, at [facility]. If instructions are not followed your [...] signed. Arrival at 9:30am to desk B-1 ([facility]) and check in for your procedure. Agency Appointments Supervisor/Transportation: How will you be arriving for your procedure? Ambulance service. To be arranged by [facility]. If you develop any of the following symptoms before your procedure, please call [phone]. Chills, joint pain, rash, sore throat, cough, loss of smell, reddened eyes, vomiting, abdominal pains, diarrhea, loss of taste, severe headache, weakness, bruising or bleeding, fever, muscle pain, shortness of breath Recovery expectations: You can expect to be in recovery for 30 minutes following the procedure. Written instructions provided to patient via [employer] If you have any questions please call [phone] documented in this encounterMercy Hospital11-15-2022 Progress note Author Sadia Aguilar [facility] December 30, 2021 1:49pm Note Date/Time December 30, 2021 1:49pm [facility] [address] [place] [address] Wound Center Provider Note Signed Patient: Alex Almonte MR#: [id number] : 1945 Acct:[id number] Age/Sex: 76 / M Copies to: DO Sadia Whyte APRN~ HPI Date of Visit Date of Visit: Date of Service: 12/30/2021 Time of Service: 13:44 Narrative HPI: 12/30/21 Alex is a 76 year old male presenting to [facility] wound care for aninitial visit for eval and treatment of a sacral/coccyx area pressure ulcer. He resides at [facility]. There is an LODGING FACILITIES ATTENDANT present for the visit. Medicalhoney gel [...] start?: 4 weeks ago Mode of Arrival/ Manager Agency: Facility vehicle Assistive Device Used Today: Wheelchair and Indra Lives with:: Care/Nursing Facility Appetite Description: Within Normal Limits Who helps w/ dressing change?: Nursing Facility Why Do You Need Help?: Can't Reach Ulcer, Limited mobility and Taxing effort to leave home Smoking Status: Former smoker [facility] Medical History (Updated 12/30/21 @ 13:49 by [...] 0.1 CM Sq: 38.500 Surrounding Tissue Appearance: Racetrack and Hyperpigmented Surrounding Tissue Temp: Warm Drainage [...] signed by DAVID Aguilar> 12/30/21 1349 [facility] Work Phone: 1(906) 240-279711-15-2022 History of Present illness Narrative* Paresh Fonseca [...] the rehab facility He is currently at [facility] in [facility] Seen on video together with Zoe -history obtained from bedside nursing. he is getting up in a chair, working with PT diet is back to regular hes doing well. 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 has scabs on the R lateral side but no wound care concerns. It continues to heal. He has a follow-up with vascular surgery later December 2021. has a sacral wound -- he has local wound care following this at [facility] WBC 6.0, creatinine -- 0.8. [...] by mouth daily with lunch. Magic Cup [place] with lunch aspirin, enteric coated (ASPIRIN, ENTERIC [...] is a 76 year old male from [facility]. 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 History of PAD CAD status post CABG, diabetes, atrial fibrillatioN He originally presented [facility] for having altered mental status [...] 3. Status post right heel I&D at [facility] on 11/24/2021. 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 4. CKD - s/p gerhard placement 5. immunocompromised Status post right open above the ankle [id number] - Enterobacter and MRSA from cultures Gram-positive [...] will need to coordinate with his SNF [phone] --our ID office will need to arrange for IR gerhard removal. Return to ID as needed 10 Minutes spent via virtual visit. SIGNATURE: Paresh Fonseca MD PATIENT NAME: Alex Almonte DATE: December 30, 2021 TIME: 9:52 AM documented in this encounterMercy Hospital11-01-2022 Miscellaneous Notes* Telephone Encounter - Sulma Pardo - 12/16/2021 3:13 PM EDT Pt therapy tech is requesting orders for Stomp ampushield to be taken off pressure relief because it is causing sores on the thigh. Thanks, Sulma Pardo Skin Lifter Bacon documented in this encounterMercy Hospital10-31-2022 Miscellaneous Notes* Telephone Encounter - Gwen Alfredo Adm Asst I - 12/15/2021 4:11 PM EDT Rupa LYLES from [facility] [phone] called to report IV Vancomycin was started until today. Patient missed 3 days, should patient makeup missed doses? Please advise. Gwen Alfredo Adm Asst I documented in this encounterMercy Hospital10-21-2022 Instructions* Patient Instructions* Paresh Fonseca MD [...] serious illness Are taking any medications (prescription, rcar-rlu-svctbly, vitamins, or herbal products) How will I receive EVUSHELD? EVUSHELD consists of two investigational medicines, tixagevimab and cilgavimab. You will receive 1 dose of EVUSHELD, consisting of 2 separate injections (tixagevimab and cilgavimab). EVUSHELD will be given to you by your healthcare provider as 2 intramuscular injections, given one after the other. Viruses can globe changer time (mutate) and develop into a [...] caused by certain SARS-CoV-2 variants: Viruses can globe changer time (mutate) and develop into a [...] treatment or prevention of COVID-19 go to https://www.fda.gov/kgfayafqn-crywtdjjulus-gbx- response/ptw-iqiqd-zxuuduoxde-qlq-spggks-mdqnlgchz/puarhzvij-ekf-lfqkwbipogqfh for more information. It is your choice [...] not go away. Report side effects to [employer] at www.fda.gov/medwatch or call 0-904-QBN-6954 or call [employer] . Additional Information If you have questions, visit the website or call the telephone number provided below. Website Telephone number http://www.Cleo How can I learn more about COVID-19? Ask your healthcare provider. Visit https://www.cdc.gov/COVID19 Contact your local or state public health department. What is an Emergency Use Authorization? The [place] FDA has made EVUSHELD (tixagevimab co-packaged with cilgavimab) available under an emergency access mechanism called an Emergency Use Authorization EUA. The EUA is supported by a Underwriting Account Representative of Health and Human Service ([facility]) declaration that circumstances exist to justify [...] monohydrate, polysorbate 80, sucrose, water. Distributed by: [employer] , [place], [place] Manufactured for: [employer] [place], [place] StatSheet 2021. All rightsreserved. documented in this encounterMercy Hospital10-21-2022 Miscellaneous Notes* Telephone Encounter - Paresh Fonseca MD - 12/05/2021 3:05 PM EDT Evusheld (tixagevimab/cilgavimab) Eligibility and Patient Discussion The patient agrees to receive Evusheld (tixagevimab 300 mg and cilgavimab 300 mg) at [facility]. The patient verbalized understanding of repeating a COVID test 72 hours prior to the injections. called up patient in response to her [employer] message today she tested covid negative on a rapid test on Wednesday this week Discussed evushed fact sheet and she agrees to proceed she will retest again today to be scheduled for Friday 12/08 at [facility] Paresh Fonseca MD documented in this encounterMercy Hospital10-03-2022 Instructions* Patient Instructions* No Reeder DO - 11/17/2021 4:26 PM EDT -- continue coumadin -- will get vascular ultrasound for vein and artery of your right leg -- will have you see my interventional cardiology partner regarding your peripheral artery disease and if your artery disease is impairing your wound healing for the leg ulcer documented in this encounterMercy Hospital10-03-2022 History of Present illness Narrative* No Reeder DO - 11/17/2021 3:53 PM EDT Images from the original note were not included. [facility] [place] Department of Cardiovascular Medicine SECTION [...] DVT scan. Leg elevation. No Reeder DO, [facility] Vascular Medicine documented in this encounter[address]16-2022 History of Past illness Narrative* Problem Noted Date Resolved Date Altered tissue perfusion 022 documented as of this encounter (statuses as of 09/30/2021) [address]16-2022 History of Past illness Narrative* Problem Noted Date Resolved Date Altered tissue perfusion 022 documented as of this encounter (statuses as of 10/09/2021) [address]16-2022 History of Past illness Narrative* Problem Noted Date Resolved Date Altered tissue perfusion 022 documented as of this encounter (statuses as of 11/18/2021) [address]16-2022 History of Past illness Narrative* Problem Noted Date Resolved Date Altered tissue perfusion 09/30/2 022 documented as of this encounter (statuses as of 12/01/2021) [address]16-2022 History of Past illness Narrative* Problem Noted Date Resolved Date Altered tissue perfusion 09/30/2 022 documented as of this encounter (statuses as of 12/05/2021) [address]16-2022 History of Past illness Narrative* Problem Noted Date Resolved Date Altered tissue perfusion 09/30/2 022 documented as of this encounter (statuses as of 12/08/2021) [address]16-2022 History of Past illness Narrative* Problem Noted Date Resolved Date Altered tissue perfusion 16/2 022 documented as of this encounter (statuses as of 12/08/2021) [address]16-2022 History of Past illness Narrative* Problem Noted Date Resolved Date Altered tissue perfusion 16/2 022 documented as of this encounter (statuses as of 12/12/2021) [address]16-2022 History of Past illness Narrative* Problem Noted Date Resolved Date Altered tissue perfusion 16/2 022 documented as of this encounter (statuses as of 12/15/2021) [address]16-2022 History of Past illness Narrative* Problem Noted Date Resolved Date Altered tissue perfusion 16/2 022 documented as of this encounter (statuses as of 12/16/2021) [address]16-2022 History of Past illness Narrative* Problem Noted Date Resolved Date Altered tissue perfusion 16/2 022 documented as of this encounter (statuses as of 12/31/2021) [address]16-2022 History of Past illness Narrative* Problem Noted Date Resolved Date Altered tissue perfusion 16/2 022 documented as of this encounter (statuses as of 01/13/2022) [address]16-2022 History of Past illness Narrative* Problem Noted Date Resolved Date Altered tissue perfusion 16/2 022 documented as of this encounter (statuses as of 01/20/2022) [address]16-[address]22 History of Past illness Narrative* Problem Noted Date Resolved Date Altered tissue perfusion 16/2 022 documented as of this encounter (statuses as of 02/06/2022) [address]16-[address]22 History of Past illness Narrative* Problem Noted Date Resolved Date Altered tissue perfusion 16/2 022 documented as of this encounter (statuses as of 02/20/2022) [address]16[address]22 History of Past illness Narrative* Problem Noted Date Resolved Date Altered tissue perfusion 16/2 022 documented as of this encounter (statuses as of 02/26/2022) [address]16-2022 History of Past illness Narrative* Problem Noted Date Resolved Date Altered tissue perfusion 16/2 022 documented as of this encounter (statuses as of 02/27/2022) [address]16[address]22 History of Past illness Narrative* Problem Noted Date Resolved Date Altered tissue perfusion 16/2 022 documented as of this encounter (statuses as of 03/21/2022) [address]16[address]22 History of Past illness Narrative* Problem Noted Date Resolved Date Altered tissue perfusion 16/2 022 documented as of this encounter (statuses as of 03/30/2022) [address]16-[address]22 History of Past illness Narrative* Problem Noted Date Resolved Date Altered tissue perfusion 16/2 022 documented as of this encounter (statuses as of 04/06/2022) [address]16[address]22 History of Past illness Narrative* Problem Noted Date Resolved Date Altered tissue perfusion 022 documented as of this encounter (statuses as of 05/13/2022) [facility] Narr[facility]* Problem Noted Date Diagnosed Date Resolved Date Altered tissue perfusion documented as of this encounter (statuses as of 2022) [facility] Narrative* Problem Noted Date Diagnosed Date Resolved Date Altered tissue perfusion documented as of this encounter (statuses as of 10/29/2022) [facility] Miscellaneous Notes* Telephone Encounter - Katina [...] pharmacy. Katina Duque documented in this encounterMercy Hospital05-31-2022 Miscellaneous Notes* Telephone Encounter - Van [...] advise. Rosibel Link Adm documented in this encounterMercy Hospital04-21-2022 Miscellaneous Notes* Telephone Encounter - Van Olivarez APRN.CNP - 06/05/2021 4:46 PM EDT Spoke with pt regarding latest results, scr. at baseline. TAC level 8.6 prev two levels in 5 range.He believes latest level would be 12hr trough. No changes for now, if next level >7, can consider if reduction appropriate. He understands. Van Olivarez APRN.CNP documented [facility]Bluff[facility] note* Diagnosis Screening for genitourinary condition Screening for other and unspecified genitourinary condition documented in this encounter [facility]* Diagnosis Acute deep vein thrombosis (DVT) of proximal end of right lower extremity (HCC)- Primary PAD (peripheral artery disease) ([facility]) Peripheral vascular disease, unspecified Nonhealing ulcer of heel ([facility]) Anticoagulation management encounter Encounter for therapeutic drug monitoring documented in this encounter [facility] note* Diagnosis Encounter for prophylactic measures, unspecified- Primary documented in this encounter [facility] note* Diagnosis Kidney replaced by transplant- Primary documented in this encounter [facility] note* Diagnosis MRSA bacteremia- Primary Bacteremia Diabetic foot ulcer with osteomyelitis ([facility]) Type II or unspecified type diabetes mellitus with other specified manifestations, not stated as uncontrolled ILIANA (acute kidney injury) ([facility]) Acute kidney failure, unspecified documented in this encounter [facility] note* Diagnosis Kidney replaced by transplant- Primary 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 documented in this encounter [facility] note* Diagnosis Hx of BKA, right ([facility])- Primary PAD (peripheral artery disease) ([facility]) Peripheral vascular disease, unspecified Mixed hyperlipidemia due to type 2 diabetes mellitus ([facility]) Type II or unspecified type [...] (HCC) Atrial fibrillation documented in this encounter [facility] note* Diagnosis Screening for genitourinary condition Screening for other and unspecified genitourinary condition documented in this encounter [facility] note* Diagnosis Onset Date Resolution Status At high risk for skin breakdown chronic Diabetes chronic Fecal incontinence chronic Limited mobility chronic Poor appetite chronic Pressure ulcer of sacral region, unstageable chronic Candidiasis resolved [facility] Work Phone: Evaluation noteNo InformationNoCrowdTogether [employer] Other Evaluation note* Diagnosis Kidney replaced by transplant- Primary documented in this encounter [facility] note* Diagnosis Type 1 diabetes mellitus [...] COLONOSCOPY 1995,2001, 2014 Hospitalization History see above [facility] Other Progress note Author Sadia Aguilar [facility] July 20, 2022 1:48pm Note Date/Time July 20, 2022 1:48p m [facility] [address] [place] [address] Wound Center Provider Note Signed Patient: Alex Almonte MR#: [id number] : 1945 Acct:[id number] Age/Sex: 76 / M Copies to: Devon Moreira,DO Sadia Copsey, BOATSWAINS MATE~ HPI Date of Visit Date of Visit: Date of Service: 07/20/2022 Time of Service: 13:46 Narrative HPI: 12/30/21 Alex is a 76 year old male presenting to [facility] wound care for aninitial visit for eval and treatment of a sacral/coccyx area pressure ulcer. He resides at [facility]. There is an LODGING FACILITIES ATTENDANT present for the visit. Medicalhoney gel [...] from initial visit here Mode of Arrival/ Manager Agency: Facility vehicle Assistive Device Used Today: Wheelchair and Indra Lives with:: Care/Nursing Facility Appetite Description: Within Normal Limits Who helps w/ dressing change?: Nursing Facility Why Do You Need Help?: Can't Reach Ulcer, Limited mobility and Taxing effort to leave home Smoking Status: Former smoker [facility] Medical History (Updated 03/03/22 @ 14:41 by [...] <Electronically signed by DAVID Aguilar> 07/20/22 1348 [facility] Work Phone: Reason for referral (narrative)* Outpatient Procedure (Routine) - Authorized Specialty Diagnoses / Procedures Referred By Kaleighac t Referred To [facility] [place] Diagnoses PAD (peripheral artery disease) ([facility]) Nonhealing ulcer of heel (HCC) Procedures US LEG ARTERIAL PERIPH UNL VAS LAB DUP-SCAN LXTR ART/ARTL BPGS UNI/[place] [address] [place] [address] [place] [address] Referral ID Status Reason Start Date Expiration Date Visits Requested Visits Authorized [id number] Authorized Auto-Generat ed Referral 11/17/2021 11/17/2022 1 1 * Outpatient Procedure (Routine) - Authorized Specialty Diagnoses / Procedures Referred By Kaleighac t Referred To [facility] Diagnoses Acute deep vein thrombosis (DVT) of proximal end of right lower extremity (HCC) Procedures US LEG VEIN DVT UNL VAS LAB DUP-SCAN XTR VEINS UNILATERAL/LIMITED STUDY No Reeder DO [address] [address] Referral ID Status Reason Start Date Expiration Date Visits Requested Visits Authorized [id number] Authorized Auto-Generat ed Referral 11/17/2021 11/17/2022 1 1 * Consult, Test, Treat (Routine) - Authorized Specialty Diagnoses / Procedures Referred By Contac t Referred To Contact Cardiology Diagnoses PAD (peripheral artery disease) (HCC) Nonhealing ulcer of heel (HCC) Procedures CONSULT TO CARDIOLOGY OFFICE/OUTPATIENT [facility] HIGH MDM 60-74 MINUTES Savanah Marcelo MD [address] [place] [address] Referral ID Status Reason Start Date Expiration Date Visits Requested Visits Authorized [id number] Authorized PCP Requested Referral 11/17/2021 11/17/2022 1 1 [facility] Summary Purpose Family History No Family History Records Found Relationship Condition Age at Onset Recorded Date/T kartik father Aneurysm Unknown father Parkinson's disease Unknown Advance Directives No Advanced Directives Records FoundDocuments on File Type Date Recorded Patient Supervisor Salvage Expl anation Advance Directive(s) Latest Code Status [...] Maker Relationship: M ajority of Adult Siblings (underwriting account representative) DNR-CCA 09/26/2021 11:56 AM 10/01/2021 2:18 [...] Decision Maker Relationship: Majority of Adult Siblings (underwriting account representative) Code Status History Code Status Date [...] for Visit Chief Complaint Open Wound ([facility]) Reason for Visit At high [...] and content) DATE CREATED AUTHOR 02/20/2021 [facility] DATE CREATED AUTHOR 'S ORGANIZ ATION 07/25/2022 [facility] DATE CREATED AUTHOR AUTHOR'S ORGANIZ ATION 08/16/2022 [facility] DATE CREATED AUTHOR AUTHOR'S ORGANIZ ATION 01/14/2023 [facility] DATE CREATED AUTHOR AUTHOR'S ORGANIZ ATION 05/25/2023 [facility] DATE CREATED AUTHOR AUTHOR'S ORGANIZ ATION 06/19/2023 [facility] EPIC Source Comments (unrecognize d section and content) In the event this informatio n is protected by the Federal Confidentiality of Alcohol and Drug Abuse Patient Records regulations: The Federal rules restrict any use of the information to criminally investigate or prosecute any alcohol or drug abuse patient.[facility] the event this information is protected by the Federal Confidentiality of Alcohol and Drug Abuse Patient Records regulations: The Federal rules restrict any use of the information to criminally investigate or prosecute any alcohol or drug abuse patient.[facility] HospitalIn the event this information is protected by the Federal Confidentiality of Alcohol and Drug Abuse Patient Records regulations: The Federal rules restrict any use of the information to criminally investigate or prosecute any alcohol or drug abuse patient.[facility] HospitalIn the event this information is protected by the Federal Confidentiality of Alcohol and Drug Abuse Patient Records regulations: The Federal rules restrict any use of the information to criminally investigate or prosecute any alcohol or drug abuse patient.[facility] HospitalIn the event this information is protected by the Federal Confidentiality of Alcohol and Drug Abuse Patient Records regulations: The Federal rules restrict any use of the information to criminally investigate or prosecute any alcohol or drug abuse patient.[facility] HospitalIn the event this information is protected by the Federal Confidentiality of Alcohol and Drug Abuse Patient Records regulations: The Federal rules restrict any use of the information to criminally investigate or prosecute any alcohol or drug abuse patient.[facility] HospitalIn the event this information is protected by the Federal Confidentiality of Alcohol and Drug Abuse Patient Records regulations: The Federal rules restrict any use of the information to criminally investigate or prosecute any alcohol or drug abuse patient.[facility] HospitalIn the event this information is protected by the Federal Confidentiality of Alcohol and Drug Abuse Patient Records regulations: The Federal rules restrict any use of the information to criminally investigate or prosecute any alcohol or drug abuse patient.[facility] HospitalIn the event this information is protected by the Federal Confidentiality of Alcohol and Drug Abuse Patient Records regulations: The Federal rules restrict any use of the information to criminally investigate or prosecute any alcohol or drug abuse patient.[facility] HospitalIn the event this information is protected by the Federal Confidentiality of Alcohol and Drug Abuse Patient Records regulations: The Federal rules restrict any use of the information to criminally investigate or prosecute any alcohol or drug abuse patient.[facility] HospitalIn the event this information is protected by the Federal Confidentiality of Alcohol and Drug Abuse Patient Records regulations: The Federal rules restrict any use of the information to criminally investigate or prosecute any alcohol or drug abuse patient.[facility] HospitalIn the event this information is protected by the Federal Confidentiality of Alcohol and Drug Abuse Patient Records regulations: The Federal rules restrict any use of the information to criminally investigate or prosecute any alcohol or drug abuse patient.[facility] HospitalIn the event this information is protected by the Federal Confidentiality of Alcohol and Drug Abuse Patient Records regulations: The Federal rules restrict any use of the information to criminally investigate or prosecute any alcohol or drug abuse patient.[facility] HospitalIn the event this information is protected by the Federal Confidentiality of Alcohol and Drug Abuse Patient Records regulations: The Federal rules restrict any use of the information to criminally investigate or prosecute any alcohol or drug abuse patient.[facility] HospitalIn the event this information is protected by the Federal Confidentiality of Alcohol and Drug Abuse Patient Records regulations: The Federal rules restrict any use of the information to criminally investigate or prosecute any alcohol or drug abuse patient.[facility] HospitalIn the event this information is protected by the Federal Confidentiality of Alcohol and Drug Abuse Patient Records regulations: The Federal rules restrict any use of the information to criminally investigate or prosecute any alcohol or drug abuse patient.[facility] HospitalIn the event this information is protected by the Federal Confidentiality of Alcohol and Drug Abuse Patient Records regulations: The Federal rules restrict any use of the information to criminally investigate or prosecute any alcohol or drug abuse patient.[facility] HospitalIn the event this information is protected by the Federal Confidentiality of Alcohol and Drug Abuse Patient Records regulations: The Federal rules restrict any use of the information to criminally investigate or prosecute any alcohol or drug abuse patient.[facility] HospitalIn the event this information is protected by the Federal Confidentiality of Alcohol and Drug Abuse Patient Records regulations: The Federal rules restrict any use of the information to criminally investigate or prosecute any alcohol or drug abuse patient.[facility] HospitalIn the event this information is protected by the Federal Confidentiality of Alcohol and Drug Abuse Patient Records regulations: The Federal rules restrict any use of the information to criminally investigate or prosecute any alcohol or drug abuse patient.[facility] HospitalIn the event this information is protected by the Federal Confidentiality of Alcohol and Drug Abuse Patient Records regulations: The Federal rules restrict any use of the information to criminally investigate or prosecute any alcohol or drug abuse patient.[facility] HospitalIn the event this information is protected by the Federal Confidentiality of Alcohol and Drug Abuse Patient Records regulations: The Federal rules restrict any use of the information to criminally investigate or prosecute any alcohol or drug abuse patient.[facility] HospitalIn the event this information is protected by the Federal Confidentiality of Alcohol and Drug Abuse Patient Records regulations: The Federal rules restrict any use of the information to criminally investigate or prosecute any alcohol or drug abuse patient.[facility] HospitalIn the event this information is protected by the Federal Confidentiality of Alcohol and Drug Abuse Patient Records regulations: The Federal rules restrict any use of the information to criminally investigate or prosecute any alcohol or drug abuse patient.[facility] HospitalIn the event this information is protected by the Federal Confidentiality of Alcohol and Drug Abuse Patient Records regulations: The Federal rules restrict any use of the information to criminally investigate or prosecute any alcohol or drug abuse patient.[facility] HospitalIn the event this information is protected by the Federal Confidentiality of Alcohol and Drug Abuse Patient Records regulations: The Federal rules restrict any use of the information to criminally investigate or prosecute any alcohol or drug abuse patient.[facility] Reason for Visit (unrecogniz ed section and content) Reason Comments Results Reason Comments Refill Request Reason Comments Patient Update viviana discussion Reason Comments CoPat Start copat stop [...] Care Teams (unrecognized sec tion and content) Disk Sharpener Relationship Specialty Start Date End Date Devon Moreira, DO [address] [place] [address] PCP - General 05/27/00 Disk Sharpener Relationship Specialty Start Date End Date Devon Moreira, DO [address] [place] [address] PCP - General 05/27/00 Disk Sharpener Relationship Specialty Start Date End Date Devon Moreira, DO [address] [place] [facility] [place] [address] PCP - General 05/27/00 Disk Sharpener Relationship Specialty Start Date End Date Devon Moreira, DO [address] [facility] [place] [address] PCP - General 05/27/00 Disk Sharpener Relationship Specialty Start Date End Date Devon Moreira, DO [address] [facility] [address] PCP - General 05/27/00 Disk Sharpener Relationship Specialty Start Date End Date Devon Moreira, DO [address] [place] [address] PCP - General 05/27/00 Disk Sharpener Relationship Specialty Start Date End Date Devon Moreira, DO [address] [place] [address] PCP - General 05/27/00 Disk Sharpener Relationship Specialty Start Date End Date Devon Moreira, DO [address] [place] [address] PCP - General 05/27/00 Disk Sharpener Relationship Specialty Start Date End Date Devon Moreira, DO [address] [place] [address] PCP - General 05/27/00 Disk Sharpener Relationship Specialty Start Date End Date Devon Moreira, DO [address] [place] [address] PCP - General 05/27/00 Disk Sharpener Relationship Specialty Start Date End Date Devon Moreira, DO [address] [place] [address] PCP - General 05/27/00 Disk Sharpener Relationship Specialty Start Date End Date Devon Moreira, DO [address] [place] [address] PCP - General 05/27/00 Disk Sharpener Relationship Specialty Start Date End Date Devon Moreira, DO [address] [place] [address] PCP - General 05/27/00 Disk Sharpener Relationship Specialty Start Date End Date Devon Moreira, DO [address] [place] [address] PCP - General 05/27/00 Disk Sharpener Relationship Specialty Start Date End Date Devon Moreira, DO [address] [place] [address] PCP - General 05/27/00 Disk Sharpener Relationship Specialty Start Date End Date Devon Moreira, DO [address] [place] [address] PCP - General 05/27/00 Disk Sharpener Relationship Specialty Start Date End Date Devon Moreira, DO [address] [place] [address] PCP - General 05/27/00 Disk Sharpener Relationship Specialty Start Date End Date Devon Moreira, DO [address] [place] [address] PCP - General 05/27/00 Disk Sharpener Relationship Specialty Start Date End Date Devon Moreira, DO [address] [place] [id number] PCP - General 05/27/00 Team Status: Active Member Role Status Dates Devon Moreira DO Primary Care Provider Active Team Status: Inactive Member Role Status Dates Devon Moreira DO Primary Care Provider Active Sadia Aguilar APRN Attending Provider Active Disk Sharpener Relationship Specialty Start Date End Date Devon Moreira DO [address] [place] [id number] PCP - General 05/27/00 Disk Sharpener Relationship Specialty Start Date End Date Devon Moreira DO [address] [place] [address] PCP - General 05/27/00 Disk Sharpener Relationship Specialty Start Date End Date Ni Cabrera DO [address] [facility] [address] [place] [address] PCP - ACO Reach 07/09/22 Devon Moreira MD [address] [place] [id number] PCP - General Internal Medicine 07/14/22 PRN Active and Recently Administ ered Medications (unrecognized section and content) Medication Order 01/10/2022 01/11/2022 01/12/2022 lidocaine (PF) 10 mg/mL (1 %) injection (XYLOCAINE) SUBCUTANEOUS, X (OR/PROCEDURE) PRN, Starting on 01/12/22 at 1032, Until Wed01/13/22 at 0303, Intraprocedure 1032 (Given - Provid er: Vani Hdz APRN.NETWORK COORDINATOR) Goals (unrecognized section and content) Goals may [...] BE BASED ON THE PRIMARY CLINICAL RECORDS. [employer] provides no warranty or guarantee of the accuracy or completeness of information in this document.
[2023-08-04 08:34] LABS: Basophils Percent Auto 0.6 % (0.2-2.0); Eosinophils Absolute Auto 0.4 10^3/uL (0.0-0.7); Eosinophils Percent Auto 5.3 % (0.9-7.0); Hematocrit 25.9 % (42.0-54.0); Immature Granulocytes Abs Auto 0.02 10^3/uL (0.00-0.03); Immature Granulocytes Pct Auto 0.3 % (0.0-0.5); Lymphocytes Absolute Auto 1.9 10^3/uL (1.2-3.8); Lymphocytes Percent Auto 28.3 % (20.5-60.0); Mean Corpuscular HGB Conc 30.9 g/dL (29.9-35.2); Mean Corpuscular Hemoglobin 24.2 pg (25.9-34.0); Mean Corpuscular Volume 78.2 fL (80.0-94.0); Monocytes Absolute Auto 0.8 10^3/uL (0.3-0.8); Monocytes Percent Auto 12.1 % (1.7-12.0); Neutrophils Absolute Auto 3.5 10^3/uL (1.4-6.5); Neutrophils Percent Auto 53.4 % (43.0-75.0); Platelet Count 232 10^3/uL (150-450); Red Blood Count 3.31 10^6/uL (4.70-6.10); Red Cell Distribution Width 16.7 % (11.0-15.0); White Blood Count 6.6 10^3/uL (4.0-11.0)
[2023-08-04 09:14] LABS: INR 2.87; Prothrombin Time 27.4 sec (9.0-11.6)
[2023-08-04 09:26] LABS: Alanine Aminotransferase 13 U/L (16-63); Albumin Globulin Ratio 0.8; Albumin Level 2.5 g/dL (3.4-5.0); Alkaline Phosphatase 81 U/L (46-116); Anion Gap 11.4; Aspartate Amino Transferase 16 U/L (15-37); Bilirubin Total 0.6 mg/dL (0.2-1.0); Carbon Dioxide 27.2 mmol/L (21.0-32.0); Chloride 105 mmol/L (98-107); Estimated GFR (African America >60 (>=60); Estimated GFR (Non-African Ame 50 (>=60); Globulin 3.2 g/dL; Glucose 172 mg/dL (74-106); Potassium 3.6 mmol/L (3.5-5.1); Sodium 140 mmol/L (136-145); Total Protein 5.7 g/dL (6.4-8.2)
== END 2023-08-04 02:29 | disposition home or self-care (01) ==
LOC: LAB 02:28
PROVIDERS: PCP Internal Medicine; Visit Provider Internal Medicine
DX: N18.9 Chronic kidney disease, unspecified (principal)
CPT/HCPCS: 36415; 80053; 80197; 85025; 85610

== ENCOUNTER 2023-08-06 01:13 | Outpatient (REF) | payer MEDICARE, OTHER, SELFPAY ==
--- OUTSIDE RECORDS SUMMARY | 2023-08-06 01:18 | XMS_ITS | CCD ---
Author Organization [facility] Inform ion Partnership [facility] Care Team Providers Care Stocking Inspector Name Role Phone PROVIDER, UNKNOWN Attending Unavailable [...] e ZIEBER, DR CURRY Carmona Consulting Unavailable NADDELILAH, DR PROSPER Douglas Consulting Unavailable GRECHNY ., [...] DR OSORIO Attending Unavailable BALL, DR OOSRIO Admitting Unavailable BALL, DR OSORIO Primary Care [...] CASTANO Consulting Unavailable NO FLORES Consulting Unavailable KANCHNA ., MARY ANN Consulting Unavailable DARAMOLCYN Douglas Consulting Unavailable ALYSON ., PARAMJIT LUZ Consulting Unavailable CONSTANTIN BALL Consulting Unavailable ANNALEE PARADA Consulting Unavailable MISBAH YANES Consulting Unavailable FAWWAD, DIAMOND H Attending Unavailable FAWWAD, SHAIKH Kate Admitting Unavailable BALL, DR OSORIO Primary Care [...] Unavailable Lillie, DO Osorio Primary Care Provider [phone] DAVID Aguilar Attending Provider Sadia Aguilar Attending [...] BROMIDE] Drug Allergy 2 GI Upset [facility] Work Phone: (1 source) Pyridostigmine Drug [...] Indications: Type 1 diabetes mellitus with nephropathy ([facility]) 3 units breakfast, 5 units lunch, [...] 10 units and notify provider K Phos [place]-Sod Phos Di & [place] [phone] MG (6 sources) take 155-852 tablets by mouth twice daily K Phos [place]-Sod Phos Di & [place] [phone] MG 1 tablet Orally twice daily Active take 155-852 tablets by mouth four times daily take 155-852 tablets by mouth four times daily K Phos [place]-Sod Phos Di & [place] 155-852-130 MG 1 tablet Orally Four times [...] needed. docusate sodium 50 mg / sennosides, fci 8.6 mg oral tablet (20 sources) Start: [...] by mouth daily with lunch. Magic Cup Nobles with lunch 7110 mL 0 12/11/2021 Active Comment on above: Take 237 mL by mouth daily with lunch. Magic Cup Nobles with lunch polyethylene glycol 3350 61672 mg powder for oral solution (20 sources) [...] Coronary arteriosclerosis; Translations: [Atherosclerotic heart disease of [place] coronary artery without angina pectoris] Onset: 7 [...] current use of immunosuppressive drug; Translations: [Other bed bug exterminator (current) drug therapy] Episodic Other aftercare (13 sources) Long-term current use of insulin; Translations: [assisted (current) use of insulin] Episodic Other aftercare (10 sources) terminal computer operator (current) use of insulin; Translations: [FDC CURRENT USE OF INSULIN] Onset: 2 Episodic Other aftercare (5 sources) assisted (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 of anticoagulants; Translations: [PROGRAM SERVICES PLANNER CURRNT USE ANTICOAGULANTS] Onset: 3 Episodic Other [...] metabolic disorders (1 source) Anorexia; Translations: [Anorexia] 06-05-2023 Episodic Other screening for suspected conditions (not [...] 07-30-2006 Episodic Other aftercare (2 sources) Other bed bug exterminator (current) drug therapy; Translations: [OTH FDC CURRENT DRUG THERAPY] Onset: 02-05-2022 Episodic Other aftercare (4 sources) Encounter for orthopedic aftercare following surgical amputation; Translations: [ENC ORTHOPED AFTERCARE FLW SURG AMP] Onset: 02-05-2022 Episodic Other aftercare (4 sources) terminal computer operator (current) use of antibiotics; Translations: [PROGRAM SERVICES PLANNER CURRENT USE ANTIBIOTICS] Onset: 12-20-2021 Episodic Other aftercare (1 source) assisted (current) use of aspirin; Translations: [PROGRAM SERVICES PLANNER CURRENT USE OF ASPIRIN] Onset: 01-19-2022 Episodic [...] Range Facility Office Visiton 05-19-2023 Follow-up visit [id number] Alex Almonte 1945 M Date Provider Department Center 05/19/2023 CAITY PALACIOS CARD [facility] Family History Problem Relation Age of Onset Cancer Mother Aneurysm Father Cancer Father Parkinsonism Father Family Status - Relation Status Age at Mother Father Level of Service:83023 [place] OFFICE/OUTPATIENT ESTABLISHED LOW MDM 20 MIN Reason for Visit and Comments: Follow-up [160093] - [address] [facility] HbA1c (Bld) [Mass fraction]o n 03-18-2023 Interpretation and review of laboratory results Normal [facility] POCT glycosylated hemoglobin (Hb A1C) docked deviceon 03-18-2023 HbA1c (Bld) [Mass fraction] 7.8 % [facility] Sonya 12-25-2022 CNPN Telephone (TXCTGL) ALEX ALMONTE ([id number]) 1945 M Date Time Provider Department 12/25/22 KIDNEY TXP COORDINATORS TXCTGL During your visit today, we recorded the following information about you: Duane Ryan 12/25/2022 10:41 AM Signed Labs 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 [employer] Allergies As of Date: 12/25/2022 Noted Allergy [...] by mouth daily with lunch. 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] 09/07/2003 PROPHYLACTIC IMMUNOTHERAPY [Z29.89] 07/30/2006 PROGRAM SERVICES PLANNER STEROIDS [[id number]] 07/30/2006 VITAMIN D DEFICIENCY NOS [E55.9] 09/07/2008 MIXED HYPERLIPIDEMIA [E78.2] 09/07/2008 SUMMARY 01/04/2015 ILIANA (acute kidney injury) (HCC) [N17.9] 01/04/2015 Diabetes mellitus (HCC) [E11.9] 01/04/2015 Cellulitis [L03.90] 01/04/2015 Diarrhea [R19.7] 01/04/2015 VTE (venous thromboembolism) [I82.90] 09/24/2021 CAD (coronary artery disease) [I25.10] 2016 Paroxysmal atrial fibrillation (HCC) [I48.0] HTN (hypertension) [I10] SA node dysfunction ([facility]) [I49.5] Altered tissue perfusion [R09.89] 09/30/2021 PAD (peripheral artery disease) (HCC) [I73.9] 09/26/2021 Osteomyelitis (HCC) [M86.9] 11/29/2021 Class 1 obesity due to excess calories with ser*11/29/2021 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 Magic Cup Nobles with lunch aspirin, enteric coated (ASPIRIN, ENTERIC [...] 0. (more content not included)... Normal [facility] Office Visiton 09-09-2022 Follow-up visit [id number] Alex Almonte Kate 1945 M Date Provider Department Center 09/09/2022 1596-SARTHAK PARNELL CARD [facility] Family History Problem Relation Age of Onset Cancer Mother Aneurysm Father Cancer Father Parkinsonism Father Family Status - Relation Status Age at Mother Father Level of Service:89005 [place] OFFICE/OUTPATIENT ESTABLISHED MOD MDM 30-[address] [facility] Glucose Poct Glucometerson 0 07-20-2022 Commemt1 Glu2: Cleaned Meter Normal [facility] Comment on above: Result Comment: PERF ORMED BY: [facility] [address] [place] [address] PATHOLOGIST FAMILY NURSE JOSE F ELLIOTT M.D. Performed By: #### G MADY #### Point of Care testing , Glucose [Mass/Vol] 176 mg/dL Normal [facility] Comment on above: Result Comment: [facility] Glucose Reference Range is dependent on time and content of last meal. Glucose of more than 200 mg/dL in a nonstressed, ambulatory subject supports the diagnosis of Diabetes Mellitus. Performed By: #### G LULS #### Point of Care testing , FK506 (TACROLIMUS) WHOLE BLO ODon 07-12-2022 Tacrolimus (FK506), Blood 10.9 ng/mL Normal 2.0-20.0 [facility] Comment on above: Result Comment: Trou gh (immediately following transplant) 15.0 . Trough (steady state, 2 weeks or more after transplant): 3.0 - 8.0 . Performed by LC-MS/MS technology. Performed By: #### F K506T ####[facility] Brlaqiq[address] [place], [place] [address]Dr. Farhat Leal CBC AUTO DIFFon 07-10-2022 BASO # 0.0 103/ul Normal 0.0-0.1 [facility] Comment on above: Performed By: #### C BC ####[facility] Rimc[address] [place], [place] [address]Dr. Farhat Leal Basophils/100 WBC (Bld) 0.5 % Normal 0.2-2.0 [facility] Comment on above: Performed By: #### C BC ####[facility] Es[address] [place], [place] [address]Dr. Farhat Leal EO # 0.3 103/ul Normal 0.0-0.7 [facility] Comment on above: Performed By: #### C BC ####[facility] N[address] [place], [place] [address]Dr. Farhat Leal Eosinophils/100 WBC (Bld) 4.9 % Normal 0.9-7.0 [facility] Comment on above: Performed By: #### C BC ####[facility] [address] [place], [place] [address]Dr. Farhat Leal Erythrocyte distribution width (RBC) [Ratio] 13.8 % Normal 11.0-15.0 [facility] Comment on above: Performed By: #### C BC ####[facility] [address] [place] [address]Dr. Farhat Leal Hematocrit (Bld) [Volume fraction] 36.6 % Critically low 42.0-54.0 [facility] Comment on above: Performed By: #### C BC ####[facility] [address] [place] [address]DrSkylar Leal Hemoglobin (Bld) [Mass/Vol] 12.2 g/dL Critically low 14.0-18.0 [facility] Comment on above: Performed By: #### C BC ####[facility] D[address] [place], [place] [address]DrSkylar Leal IG # 0.01 10e3/ul Normal 0.00-0.03 [facility] Comment on above: Performed By: #### C BC ####[facility] V[address] [place], [place] [address]Dr. Farhat Leal IG % 0.2 % Normal 0.0-0.5 [facility] Comment on above: Performed By: #### C BC ####[facility] V[address] [place], [place] [address]DrSkylar Leal LYMPH # 2.2 103/ul Normal 1.2-3.8 [facility] Comment on above: Performed By: #### C BC ####[facility] J[address]wsv[address] [place], [place] [address]DrSkylar Leal Lymphocytes/100 WBC (Bld) 33.9 % Normal 20.5-60.0 [facility] Comment on above: Performed By: #### C BC ####[facility] X[address] [place], [place] [address]DrSkylar Leal MANUAL DIFF REQ NO Normal [facility] Comment on above: Performed By: #### C BC ####[facility] [address] [place] [address]DrSkylar Leal MCH (RBC) [Entitic mass] 31.0 pg Normal 25.9-34.0 [facility] Comment on above: Performed By: #### C BC ####[facility] [address] [place] [address]Dr. Farhat Leal MCHC (RBC) [Mass/Vol] 33.3 g/dL Normal 29.9-35.2 [facility] Comment on above: Performed By: #### C BC ####[facility] [address] [place] [address]Dr. Fahrat Leal MCV (RBC) [Entitic vol] 93.1 fL Normal 80.0-94.0 [facility] Comment on above: Performed By: #### C BC ####[facility] X[address]scx[address] [place], [place] [address]DrSkylar Leal MONO # 0.7 103/ul Normal 0.3-0.8 [facility] Comment on above: Performed By: #### C BC ####[facility] Voalncpoei[address] [place], [place] [address]Dr. Farhat Leal Monocytes/100 WBC (Bld) 10.8 % Normal 1.7-12.0 [facility] Comment on above: Performed By: #### C BC ####[facility] H[address] [place], [place] [address]Dr. Farhat Leal NEUT # 3.2 103/ul Normal 1.4-6.5 [facility] Comment on above: Performed By: #### C BC ####[facility] H[address] [place], [place] [address]Dr. Farhat Leal Neutrophils/100 WBC (Bld) 49.7 % Normal 43.0-75.0 [facility] Comment on above: Performed By: #### C BC ####[facility] S[address] [place], [place] [address]DrSkylar Leal Platelet mean volume (Bld) [Entitic vol] 10.9 fL Normal 9.5-13.5 [facility] Comment on above: Performed By: #### C BC ####[facility] Padftgqlvr[address] [place], [place] [address]Dr. Farhat Leal PLT 195 103/ul Normal 150-450 [facility] Comment on above: Performed By: #### C BC ####[facility] Ltflipfazz[address] [place] [address]Dr. Farhat Leal RBC 3.93 106/ul Critically low 4.70-6.10 [facility] Comment on above: Performed By: #### C BC ####[facility] [address] [place] [address]Dr. Farhat Leal WBC 6.4 103/ul Normal 4.0-11.0 [facility] Comment on above: Performed By: #### C BC ####[facility] [address] [place] [address]Dr. Farhat Leal MAGNESIUMon 07-10-2022 Magnesium [Mass/Vol] 1.9 mg/dL Normal 1.8-2.4 [facility] Comment on above: Performed By: #### HENRI Winters ####[facility] S[address]ks[address] [place], [place] [address]Dr. Farhat Leal PHOSPHORUSon 07-10-2022 Phosphate [Mass/Vol] 4.7 mg/dL Normal 2.6-4.7 [facility] Comment on above: Performed By: #### HENRI Winters ####[facility] [address] [place], [place] [address]Dr. Farhat Leal PROF 14(COMP METB)on 023 Albumin [Mass/Vol] 2.7 g/dL Critically low 3.4-5.0 [facility] Comment on above: Performed By: #### C MP ####[facility] [address] [place] [address]Dr. Farhat Leal Albumin/Globulin [Mass ratio] 0.8 {ratio} Normal [facility] Comment on above: Performed By: #### C MP ####[facility] [address]hc[address] [place] [address]Dr. Farhat Lela ALP [Catalytic activity/Vol] 59 U/L Normal 46-116 [facility] Comment on above: Performed By: #### C MP ####[facility] Um[address] [place] [address]Dr. Farhat Leal ALT [Catalytic activity/Vol] 16 U/L Normal 16-63 [facility] Comment on above: Performed By: #### C MP ####[facility] X[address]eg[address] [place] [address]Dr. Farhat Leal Anion gap [Moles/Vol] 12.3 mmol/L Normal [facility] Comment on above: Performed By: #### C MP ####[facility] V[address]ag[address] [place], [place] [address]Dr. Farhat Leal AST [Catalytic activity/Vol] 17 U/L Normal 15-37 [facility] Comment on above: Performed By: #### C MP ####[facility] [address]sp[address]frfh[address] [place], [place] [address]Dr. Farhat Leal Bilirubin [Mass/Vol] 0.5 mg/dL Normal 0.2-1.0 [facility] Comment on above: Performed By: #### C MP ####[facility] Crzxiztopy[address] [place], [place] [address]Dr. Farhat Leal Calcium [Mass/Vol] 8.5 mg/dL Normal 8.5-10.1 [facility] Comment on above: Performed By: #### C MP ####[facility] K[address]mcuhvst[address] [place], [place] [address]Dr. Farhat Leal Chloride [Moles/Vol] 104 mmol/L Normal 98-107 [facility] Comment on above: Performed By: #### C MP ####[facility] Zaluwqkupe[address] [place], [place] [address]Dr. Farhat Leal CO2 [Moles/Vol] 27.6 mmol/L Normal 21.0-32.0 [facility] Comment on above: Performed By: #### C MP ####[facility] Lyuexl[address]uo[address] [place], [place] [address]Dr. Farhat Leal Creatinine [Mass/Vol] 1.79 mg/dL Critically high 0.70-1.30 [facility] Comment on above: Performed By: #### C MP ####[facility] [address] [place] [address]Dr. Farhat Leal EGFR-AF KAZAKH 45 mL/min/1.73m2 Critically low >=60 [facility] Comment on above: Performed By: #### C MP ####[facility] K[address]pfbpemia[address] [place] [address]Dr. Farhat Leal EGFR-NON AF KAZAKH 37 mL/min/1.73m2 Critically low >=60 [facility] Comment on above: Performed By: #### C MP ####[facility] I[address]qk[address] [place] [address]Dr. Farhat Leal Globulin (S) [Mass/Vol] 3.2 g/dL Normal [facility] Comment on above: Performed By: #### C MP ####[facility] V[address]jeutbsc[address] [place], [place] [address]Dr. Farhat Leal Glucose [Mass/Vol] 203 mg/dL Critically high 74-106 [facility] Comment on above: Performed By: #### C MP ####[facility] Uhoovhgdiu[address] [place], [place] [address]Dr. Farhat Leal Potassium [Moles/Vol] 3.9 mmol/L Normal 3.5-5.1 [facility] Comment on above: Performed By: #### C MP ####[facility] Kaodlp[address]hn[address] [place], [place] [address]Dr. Farhat Leal Protein [Mass/Vol] 5.9 g/dL Critically low 6.4-8.[address] [facility] Comment on above: Performed By: #### C MP ####[facility] [address] [place] [address]Dr. Farhat Leal Sodium [Moles/Vol] 140 mmol/L Normal 136-145 [facility] Comment on above: Performed By: #### C MP ####[facility] Apgiavjcbo[address] [place], [place] [address]Dr. Farhat Leal Urea nitrogen [Mass/Vol] 61.0 mg/dL Critically high 7.0-18.0 [facility] Comment on above: Performed By: #### C MP ####[facility] Slqtoltedj[address] [place], [place] [address]Dr. Farhat Leal Urea nitrogen/Creatinine [Mass ratio] 34.1 mg/mg Normal [facility] Comment on above: Performed By: #### C MP ####[facility] [address]jecebzb[address] [place], [place] [address]DrSkylar Leal PROTIMEon 07-10-2022 INR Coag (PPP) [Relative time] 2.95 {INR} Normal [facility] Comment on above: Performed By: #### P T ####[facility] Br[address]zlic[address] [place], [place] [address]DrSkylar Leal INR GUIDELINES SEE BELOW Normal [facility] Comment on above: Result Comment: MALINA RED INR: 2.0 - 3.0 CONDITIONS NOT LISTED BELOW 2.5 - 3.5 FOR PROSTHETIC HEART VALVE REPLACEMENT 2.5 - 3.5 RECURRENT THROMBOSIS Performed By: #### P T ####[facility] [address]wrxs[address]kao[address] [place], [place] [address]Dr. Farhat Leal PT Coag (PPP) [Time] 29.4 s Critically high 9.0-11.6 [facility] Comment on above: Performed By: #### P T ####[facility] Z[address]fmi[address] [place], [place] [address]Dr. Farhat Leal FK506 (TACROLIMUS) WHOLE BLO ODon 07-07-2022 Tacrolimus (FK506), Blood 8.3 ng/mL Normal 2.0-20.0 [facility] Comment on above: Result Comment: Trou gh (immediately following transplant) 15.0 . Trough (steady state, 2 weeks or more after transplant): 3.0 - 8.0 . Performed by LC-MS/MS technology. Performed By: #### F K506T ####[facility] [address]bszc[address] [place], [place] [address]DrSkylar Leal CBC AUTO DIFFon 07-03-2022 BASO # 0.0 103/ul Normal 0.0-0.1 [facility] Comment on above: Performed By: #### C BC ####[facility] E[address]zq[address] [place], [place] [address]DrSkylar Leal Basophils/100 WBC (Bld) 0.6 % Normal 0.2-2.0 [facility] Comment on above: Performed By: #### C BC ####[facility] [address] [place] [address]DrSkylar Leal EO # 0.3 103/ul Normal 0.0-0.7 [facility] Comment on above: Performed By: #### C BC ####[facility] M[address]bvmykw[address] [place], [place] [address]DrSkylar Leal Eosinophils/100 WBC (Bld) 4.1 % Normal 0.9-7.0 [facility] Comment on above: Performed By: #### C BC ####[facility] Tdvdqqawkn[address] [place], [place] [address]Dr. Farhat Leal Erythrocyte distribution width (RBC) [Ratio] 14.0 % Normal 11.0-15.0 [facility] Comment on above: Performed By: #### C BC ####[facility] Jkgsxaajmh[address] [place], [place] [address]Dr. Farhat Leal Hematocrit (Bld) [Volume fraction] 35.9 % Critically low 42.0-54.0 [facility] Comment on above: Performed By: #### C BC ####[facility] [address]ie[address]jstd[address] [place], [place] [address]Dr. Farhat Leal Hemoglobin (Bld) [Mass/Vol] 12.0 g/dL Critically low 14.0-18.0 [facility] Comment on above: Performed By: #### C BC ####[facility] [address]eg[address] [place], [place] [address]DrSkylar Leal IG # 0.04 10e3/ul Critically high 0.00-0.03 [facility] Comment on above: Performed By: #### C BC ####[facility] Y[address]ufzuj[address] [place], [place] [address]DrSkylar Leal IG % 0.6 % Critically high 0.0-0.5 [facility] Comment on above: Performed By: #### C BC ####[facility] K[address]xaqoa[address] [place], [place] [address]DrSkylar Leal LYMPH # 1.5 103/ul Normal 1.2-3.8 [facility] Comment on above: Performed By: #### C BC ####[facility] [address] [place] [address]DrSkylar Leal Lymphocytes/100 WBC (Bld) 21.5 % Normal 20.5-60.0 [facility] Comment on above: Performed By: #### C BC ####[facility] [address] [place] [address]DrSkylar Leal MANUAL DIFF REQ NO Normal [facility] Comment on above: Performed By: #### C BC ####[facility] [address]mlh[address] [place] [address]DrSkylar Leal MCH (RBC) [Entitic mass] 30.8 pg Normal 25.9-34.0 [facility] Comment on above: Performed By: #### C BC ####[facility] F[address]liuwh[address] [place], [place] [address]DrSkylar Leal MCHC (RBC) [Mass/Vol] 33.4 g/dL Normal 29.9-35.2 [facility] Comment on above: Performed By: #### C BC ####[facility] Byytdnhqle[address] [place], [place] [address]DrSkylar Leal MCV (RBC) [Entitic vol] 92.1 fL Normal 80.0-94.0 [facility] Comment on above: Performed By: #### C BC ####[facility] T[address]qs[address] [place], [place] [address]DrSkylar Leal MONO # 0.6 103/ul Normal 0.3-0.8 [facility] Comment on above: Performed By: #### C BC ####[facility] Cluohpkcdt[address] [place], [place] [address]DrSkylar Leal Monocytes/100 WBC (Bld) 8.7 % Normal 1.7-12.0 [facility] Comment on above: Performed By: #### C BC ####[facility] [address] [place], [place] [address]DrSkylar Leal NEUT # 4.4 103/ul Normal 1.4-6.5 [facility] Comment on above: Performed By: #### C BC ####[facility] [address] [place] [address]DrSkylar Leal Neutrophils/100 WBC (Bld) 64.5 % Normal 43.0-75.0 [facility] Comment on above: Performed By: #### C BC ####[facility] [address] [place] [address]DrSkylar Leal Platelet mean volume (Bld) [Entitic vol] 10.1 fL Normal 9.5-13.5 [facility] Comment on above: Performed By: #### C BC ####[facility] Jrabzkjvnn[address] [place], [place] [address]DrSkylar Leal PLT 177 103/ul Normal 150-450 [facility] Comment on above: Performed By: #### C BC ####[facility] [address]fswkaz[address] [place], [place] [address]DrSkylar Leal RBC 3.90 106/ul Critically low 4.70-6.10 [facility] Comment on above: Performed By: #### C BC ####[facility] N[address] [place], [place] [id number] Leal WBC 6.8 103/ul Normal 4.0-11.0 [facility] Comment on above: Performed By: #### C BC ####[facility] [address]qumywkj[address] [place], [place] [address]Dr. Farhat Leal PROF 14(COMP METB)on 023 Albumin [Mass/Vol] 2.8 g/dL Critically low 3.4-5.[address] [facility] Comment on above: Performed By: #### C MP ####[facility] Z[address]sekhq[address] [place], [place] [id number] Leal Albumin/Globulin [Mass ratio] 0.8 {ratio} Normal [facility] Comment on above: Performed By: #### C MP ####[facility] [address] [place], [place] [address]DrSkylar Leal ALP [Catalytic activity/Vol] 68 U/L Normal 46-116 [facility] Comment on above: Performed By: #### C MP ####[facility] [address] [place] [id number]. Farhat Leal ALT [Catalytic activity/Vol] 20 U/L Normal 16-63 [facility] Comment on above: Performed By: #### C MP ####[facility] Tcveszwlag[address] [place], [place] [address]Dr. Farhat Leal Anion gap [Moles/Vol] 11.1 mmol/L Normal Th [facility] Comment on above: Performed By: #### C MP ####[facility] Czvpulmoeu[address] [place], [place] [address]Dr. Farhat Leal AST [Catalytic activity/Vol] 22 U/L Normal 15-37 [facility] Comment on above: Performed By: #### C MP ####[facility] Otrmoqqsee8[address] [place], [place] [address]Dr. Farhat Elvis Bilirubin [Mass/Vol] 0.4 mg/dL Normal 0.2-1.0 [facility] Comment on above: Performed By: #### C MP ####[facility] Stjphqfngk[address] [place], [place] [address]Dr. Farhat Elvis Calcium [Mass/Vol] 8.5 mg/dL Normal 8.5-10.1 [facility] Comment on above: Performed By: #### C MP ####[facility] Joucztjjuk[address] [place], [place] [address]Dr. Farhat Leal Chloride [Moles/Vol] 106 mmol/L Normal 98-107 [facility] Comment on above: Performed By: #### C MP ####[facility] Fgmcdxczua0845[address] [place], [place] [address]Dr. Farhat Leal CO2 [Moles/Vol] 29.1 mmol/L Normal 21.0-32.0 [facility] Comment on above: Performed By: #### C MP ####[facility] Ygvfmxneps[address] [place], [place] [id number]. Farhat Elvis Creatinine [Mass/Vol] 1.70 mg/dL Critically high 0.70-1.30 [facility] Comment on above: Performed By: #### C MP ####[facility] Bbrtcwptle[address] [place] [address]Dr. Farhat Leal EGFR-AF KAZAKH 48 mL/min/1.73m2 Critically low >=60 [facility] Comment on above: Performed By: #### C MP ####[facility] Zqzhegmuow37[address] [place] [address]Dr. Farhat Leal EGFR-NON AF KAZAKH 39 mL/min/1.73m2 Critically low >=60 [facility] Comment on above: Performed By: #### C MP ####[facility] Slxibqwcrs[address] [place], [place] [address]Dr. Farhat Leal Globulin (S) [Mass/Vol] 3.6 g/dL Normal [facility] Comment on above: Performed By: #### C MP ####[facility] Zgyaonajto07[address] [place], [place] [address]Dr. Farhat Leal Glucose [Mass/Vol] 312 mg/dL Critically high 74-106 T [facility] Comment on above: Performed By: #### C MP ####[facility] Aprzajqvyi1926[address] [place], [place] [address]Dr. Farhat Leal Potassium [Moles/Vol] 4.2 mmol/L Normal 3.5-5.1 [facility] Comment on above: Performed By: #### C MP ####[facility] Clggqupxej[address] [place], [place] [address]Dr. Farhat Leal Protein [Mass/Vol] 6.4 g/dL Normal 6.4-8.2 [facility] Comment on above: Performed By: #### C MP ####[facility] Xdujzumyns6[address] [place], [place] [address]Dr. Farhat Leal Sodium [Moles/Vol] 142 mmol/L Normal 136-145 [facility] Comment on above: Performed By: #### C MP ####[facility] Lbneegtsgv3843[address] [place], [place] [address]Dr. Farhat Leal Urea nitrogen [Mass/Vol] 49.0 mg/dL Critically high 7.0-18.0 [facility] Comment on above: Performed By: #### C MP ####[facility] Dxxrbieaaj5739 [place] [address]DrSkylar Leal Urea nitrogen/Creatinine [Mass ratio] 28.8 mg/mg Normal [facility] Comment on above: Performed By: #### C MP ####[facility] Rzmkkcvtbk9156[address] [place], [place] [address]DrSkylar Leal PROTIMEon 07-03-2022 INR Coag (PPP) [Relative time] 2.23 {INR} Normal [facility] Comment on above: Performed By: #### P T ####[facility] Lpzpznbdia[address] [place], [place] [address]DrSkylar Leal INR GUIDELINES SEE BELOW Normal [facility] Comment on above: Result Comment: MALINA RED INR: 2.0 - 3.0 CONDITIONS NOT LISTED BELOW 2.5 - 3.5 FOR PROSTHETIC HEART VALVE REPLACEMENT 2.5 - 3.5 RECURRENT THROMBOSIS Performed By: #### P T ####[facility] Cafrbqkinm7208[address] [place], [place] [address]Dr. Farhat Leal PT Coag (PPP) [Time] 22.6 s Critically high 9.0-11.6 [facility] Comment on above: Performed By: #### P T ####[facility] Dtdoxbnkcy8077[address] [place], [place] [address]Dr. Farhat Leal FK506 (TACROLIMUS) WHOLE BLO ODon 06-29-2022 Tacrolimus (FK506), Blood 12.2 ng/mL Normal 2.0-20.0 [facility] Comment on above: Result Comment: Trou gh (immediately following transplant) 15.0 . Trough (steady state, 2 weeks or more after transplant): 3.0 - 8.0 . Performed by LC-MS/MS technology. Performed By: #### F K506T ####[facility] Qhatodxwls[address] [place], [place] [address]DrSkylar Leal CBC AUTO DIFFon 06-26-2022 BASO # 0.0 103/ul Normal 0.0-0.1 [facility] Comment on above: Performed By: #### C BC ####[facility] [address]wckkuuhjq99[address] [place] [id number]. Farhat Leal Basophils/100 WBC (Bld) 0.5 % Normal 0.2-2.0 [facility] Comment on above: Performed By: #### C BC ####[facility] Iastwagjiu96[address] [place], [place] [address]Dr. Farhat Leal EO # 0.3 103/ul Normal 0.0-0.7 [facility] Comment on above: Performed By: #### C BC ####[facility] Osntvqoyzs1393[address] [place], [place] [address]Dr. Farhat Leal Eosinophils/100 WBC (Bld) 4.3 % Normal 0.9-7.0 [facility] Comment on above: Performed By: #### C BC ####[facility] Ujaaxxonbl5636[address] [place], [place] [address]Dr. Farhat Leal Erythrocyte distribution width (RBC) [Ratio] 14.1 % Normal 11.0-15.0 [facility] Comment on above: Performed By: #### C BC ####[facility] Gdalspycxh9835[address] [place], [place] [address]Dr. Farhat Leal Hematocrit (Bld) [Volume fraction] 35.4 % Critically low 42.0-54.0 [facility] Comment on above: Performed By: #### C BC ####[facility] Nmtqrwmwkf[address] [place], [place] [address]Dr. Farhat Leal Hemoglobin (Bld) [Mass/Vol] 11.8 g/dL Critically low 14.0-18.0 [facility] Comment on above: Performed By: #### C BC ####[facility] Hehfaybsgl01[address] [place], [place] [address]Dr. Farhat Leal IG # 0.02 10e3/ul Normal 0.00-0.03 [facility] Comment on above: Performed By: #### C BC ####[facility] Iohhigwojh3144[address] [place], [place] [address]Dr. Farhat Leal IG % 0.3 % Normal 0.0-0.5 [facility] Comment on above: Performed By: #### C BC ####[facility] Dbiipxfffi1406 [place] [id number]. Farhat Leal LYMPH # 2.4 103/ul Normal 1.2-3.8 [facility] Comment on above: Performed By: #### C BC ####[facility] Sxgafxccgy7461 [place] [phone]. Farhat Leal Lymphocytes/100 WBC (Bld) 40.4 % Normal 20.5-60.0 [facility] Comment on above: Performed By: #### C BC ####[facility] Zgfetzietv0273 [place] [address]Dr. Farhat Leal MANUAL DIFF REQ NO Normal [facility] Comment on above: Performed By: #### C BC ####[facility] Hfywekqbpv4780 [place] [id number]. Farhat Leal MCH (RBC) [Entitic mass] 31.0 pg Normal 25.9-34.0 [facility] Comment on above: Performed By: #### C BC ####[facility] Vrlplnrzel7240 [place] [id number]. Farhat Leal MCHC (RBC) [Mass/Vol] 33.3 g/dL Normal 29.9-35.2 [facility] Comment on above: Performed By: #### C BC ####[facility] Voeprnowug1389 [place] [phone]. Farhat Leal MCV (RBC) [Entitic vol] 92.9 fL Normal 80.0-94.0 [facility] Comment on above: Performed By: #### C BC ####[facility] Grksndfkdt6117 [place] [id number]. Farhat Leal MONO # 0.7 103/ul Normal 0.3-0.8 [facility] Comment on above: Performed By: #### C BC ####[facility] Snwtydkpno9130 [place] [id number]. Farhat Leal Monocytes/100 WBC (Bld) 11.1 % Normal 1.7-12.0 [facility] Comment on above: Performed By: #### C BC ####[facility] Kbwjwcuspe6236 [place] [id number]. Farhat Leal NEUT # 2.6 103/ul Normal 1.4-6.5 [facility] Comment on above: Performed By: #### C BC ####[facility] Bajotlxvyt1811 [place] [phone]. Farhat Leal Neutrophils/100 WBC (Bld) 43.4 % Normal 43.0-75.0 [facility] Comment on above: Performed By: #### C BC ####[facility] Hbghheuvxp3338 [place] [phone]. Farhat Leal Platelet mean volume (Bld) [Entitic vol] 10.4 fL Normal 9.5-13.5 [facility] Comment on above: Performed By: #### C BC ####[facility] Qjkosndzle2853 [place] [phone]. Farhat Leal PLT 211 103/ul Normal 150-450 [facility] Comment on above: Performed By: #### C BC ####[facility] Exysapxzja7051 [place] [phone]. Farhat Leal RBC 3.81 106/ul Critically low 4.70-6.10 [facility] Comment on above: Performed By: #### C BC ####[facility] Xtbbmfgwdm1108 [place] [phone]. Farhat Leal WBC 6.0 103/ul Normal 4.0-11.0 [facility] Comment on above: Performed By: #### C BC ####[facility] Yxjuszkgza4146 [place] [id number] Leal PROF 14(COMP METB)on 023 Albumin [Mass/Vol] 2.6 g/dL Critically low 3.4-5.[address] [facility] Comment on above: Performed By: #### C MP ####[facility] Gdyzlkovyi9620 [place] [id number] Leal Albumin/Globulin [Mass ratio] 0.8 {ratio} Normal [facility] Comment on above: Performed By: #### C MP ####[facility] Clyafjrvrz6954 [place] [address]Dr. Farhat Leal ALP [Catalytic activity/Vol] 64 U/L Normal 46-116 [facility] Comment on above: Performed By: #### C MP ####[facility] Drybuktqby0072 [place] [address]Dr. Farhat Elvis ALT [Catalytic activity/Vol] 18 U/L Normal 16-63 [facility] Comment on above: Performed By: #### C MP ####[facility] Fhabeqneqj[address] [place], [place] [address]Dr. Farhat Leal Anion gap [Moles/Vol] 10.2 mmol/L Normal Th [facility] Comment on above: Performed By: #### C MP ####[facility] Grcywirjls6[address] [place], [place] [address]Dr. Farhat Elvis AST [Catalytic activity/Vol] 16 U/L Normal 15-37 [facility] Comment on above: Performed By: #### C MP ####[facility] Tbejiiyocp[address] [place], [place] [address]Dr. Madelynlorri Elvis Bilirubin [Mass/Vol] 0.6 mg/dL Normal 0.2-1.0 [facility] Comment on above: Performed By: #### C MP ####[facility] Jkyuioauil[address] [place], [place] [address]Dr. Farhat Leal Calcium [Mass/Vol] 8.5 mg/dL Normal 8.5-10.1 [facility] Comment on above: Performed By: #### C MP ####[facility] Rxbfhossgv9948[address] [place], [place] [address]Dr. Farhat Leal Chloride [Moles/Vol] 106 mmol/L Normal 98-107 [facility] Comment on above: Performed By: #### C MP ####[facility] Rayvtabamn8496 [place] [address]Dr. Farhat Leal CO2 [Moles/Vol] 29.8 mmol/L Normal 21.0-32.0 [facility] Comment on above: Performed By: #### C MP ####[facility] Zcrhhyubjk0928 [place] [phone]. Farhat Leal Creatinine [Mass/Vol] 1.60 mg/dL Critically high 0.70-1.30 [facility] Comment on above: Performed By: #### C MP ####[facility] Sxprhcggod2925 [place] [id number]. Farhat Leal EGFR-AF KAZAKH 51 mL/min/1.73m2 Critically low >=60 [facility] Comment on above: Performed By: #### C MP ####[facility] Vhcffmlzyu1802 [place] [phone]. Farhat Elvis EGFR-NON AF KAZAKH 42 mL/min/1.73m2 Critically low >=60 [facility] Comment on above: Performed By: #### C MP ####[facility] Qcjikkifxf1704 [place] [phone]. Farhat Elvis Globulin (S) [Mass/Vol] 3.4 g/dL Normal [facility] Comment on above: Performed By: #### C MP ####[facility] Jgeiuyaaka1756 [place] [phone]. Farhat Leal Glucose [Mass/Vol] 178 mg/dL Critically high 74-106 [facility] Comment on above: Performed By: #### C MP ####[facility] Cvwqctvoot1170 [place] [phone]. Farhat Elvis Potassium [Moles/Vol] 4.0 mmol/L Normal 3.5-5.1 [facility] Comment on above: Performed By: #### C MP ####[facility] Ntrxzhebvh8552 [place] [phone]. Farhat Leal Protein [Mass/Vol] 6.0 g/dL Critically low 6.4-8.[address] [facility] Comment on above: Performed By: #### C MP ####[facility] Tozpcyruqg8200 [place] [phone]. Madelynlorri Leal Sodium [Moles/Vol] 142 mmol/L Normal 136-145 [facility] Comment on above: Performed By: #### C MP ####[facility] Frlgaotnyt3123 [place] [address]Dr. Farhat Leal Urea nitrogen [Mass/Vol] 49.0 mg/dL Critically high 7.0-18.0 [facility] Comment on above: Performed By: #### C MP ####[facility] Hawufsqtht3737 [place] [address]Dr. Farhat Leal Urea nitrogen/Creatinine [Mass ratio] 30.6 mg/mg Normal [facility] Comment on above: Performed By: #### C MP ####[facility] Wzaxkllhde25[address] [place], [place] [address]Dr. Farhat Lela PROTIMEon 06-26-2022 INR Coag (PPP) [Relative time] 1.77 {INR} Normal [facility] Comment on above: Performed By: #### P T ####[facility] Hoclautphm55[address] [place], [place] [address]Dr. Farhat Leal INR GUIDELINES SEE BELOW Normal [facility] Comment on above: Result Comment: MALINA RED INR: 2.0 - 3.0 CONDITIONS NOT LISTED BELOW 2.5 - 3.5 FOR PROSTHETIC HEART VALVE REPLACEMENT 2.5 - 3.5 RECURRENT THROMBOSIS Performed By: #### P T ####[facility] Ftmsvtcwuh[address] [place], [place] [address]Dr. Farhat Leal PT Coag (PPP) [Time] 18.2 s Critically high 9.0-11.6 [facility] Comment on above: Performed By: #### P T ####[facility] Qgnaremgpc6996[address] [place], [place] [address]Dr. Farhat Leal FK506 (TACROLIMUS) WHOLE BLO ODon 06-22-2022 Tacrolimus (FK506), Blood 24.5 ng/mL Invalid Interpretation Code 2.0-20.0 [facility] Comment on above: Result Comment: Trou gh (immediately following transplant) 15.0 . Trough (steady state, 2 weeks or more after transplant): 3.0 - 8.0 . Performed by LC-MS/MS technology.Patient drug level exceeds published reference range. Evaluateclinically for signs of potential toxicity. Performed By: #### F K506T ####[facility] Irxlxuoyvu7402 [place] [phone]. Farhat Leal CBC AUTO DIFFon 06-19-2022 BASO # 0.1 103/ul Normal 0.0-0.1 [facility] Comment on above: Performed By: #### C BC ####[facility] Cpbfuioalc8127 [place] [address]Dr. Farhat Leal Basophils/100 WBC (Bld) 0.7 % Normal 0.2-2.0 [facility] Comment on above: Performed By: #### C BC ####[facility] Hjaodpxecc4067[address] [place], [place] [address]Dr. Farhat Leal EO # 0.4 103/ul Normal 0.0-0.7 [facility] Comment on above: Performed By: #### C BC ####[facility] Flwunhojix5755[address] [place], [place] [address]Dr. Madelynlorri Leal Eosinophils/100 WBC (Bld) 5.7 % Normal 0.9-7.0 [facility] Comment on above: Performed By: #### C BC ####[facility] Ymlcgxhdxx3056[address] [place], [place] [address]Dr. Farhat Leal Erythrocyte distribution width (RBC) [Ratio] 14.5 % Normal 11.0-15.0 [facility] Comment on above: Performed By: #### C BC ####[facility] Wlimsrwisc1074[address] [place], [place] [address]Dr. Farhat Leal Hematocrit (Bld) [Volume fraction] 34.1 % Critically low 42.0-54.0 [facility] Comment on above: Performed By: #### C BC ####[facility] Bzfqepbvqp5464[address] [place], [place] [address]Dr. Farhat Leal Hemoglobin (Bld) [Mass/Vol] 11.3 g/dL Critically low 14.0-18.0 [facility] Comment on above: Performed By: #### C BC ####[facility] Xxlhfyxjsz1969[address] [place], [place] [address]Dr. Farhat Leal IG # 0.02 10e3/ul Normal 0.00-0.03 [facility] Comment on above: Performed By: #### C BC ####[facility] Tcavyokwls[address] [place] [address]Dr. Farhat Leal IG % 0.3 % Normal 0.0-0.5 [facility] Comment on above: Performed By: #### C BC ####[facility] Xwgugocquj7854 [place] [id number] Leal LYMPH # 3.1 103/ul Normal 1.2-3.8 [facility] Comment on above: Performed By: #### C BC ####[facility] Pbtzkqgrct3716 [place] [address]Dr. Farhat Leal Lymphocytes/100 WBC (Bld) 40.6 % Normal 20.5-60.0 [facility] Comment on above: Performed By: #### C BC ####[facility] Hlptneoirs5806[address] [place], [place] [address]DrSkylar Leal MANUAL DIFF REQ NO Normal [facility] Comment on above: Performed By: #### C BC ####[facility] Eiybamnsie0425 [place] [phone]. Madelynlorri Leal MCH (RBC) [Entitic mass] 30.6 pg Normal 25.9-34.0 [facility] Comment on above: Performed By: #### C BC ####[facility] Tqyfxdpcoj[address] [place], [place] [address]Dr. Farhat Leal MCHC (RBC) [Mass/Vol] 33.1 g/dL Normal 29.9-35.2 [facility] Comment on above: Performed By: #### C BC ####[facility] Qzdvlvrgov17[address] [place], [place] [address]DrSkylar Leal MCV (RBC) [Entitic vol] 92.4 fL Normal 80.0-94.0 [facility] Comment on above: Performed By: #### C BC ####[facility] Fylehkcdpc8446 [place] [phone] Leal MONO # 0.8 103/ul Normal 0.3-0.8 [facility] Comment on above: Performed By: #### C BC ####[facility] Tqwvdaiuco4152 [place] [phone]. Farhat Leal Monocytes/100 WBC (Bld) 10.6 % Normal 1.7-12.0 [facility] Comment on above: Performed By: #### C BC ####[facility] Svxflwyyqs4797 [place] [phone]. Farhat Leal NEUT # 3.2 103/ul Normal 1.4-6.5 [facility] Comment on above: Performed By: #### C BC ####[facility] Tyutvwojfz9276 [place] [phone]. Farhat Leal Neutrophils/100 WBC (Bld) 42.1 % Critically low 43.0-75.0 [facility] Comment on above: Performed By: #### C BC ####[facility] Flzwcxtarj0502 [place] [address]Dr. Farhat Leal Platelet mean volume (Bld) [Entitic vol] 10.6 fL Normal 9.5-13.5 [facility] Comment on above: Performed By: #### C BC ####[facility] Vxxsodgfwl8484 [place] [address]Dr. Farhat Leal PLT 187 103/ul Normal 150-450 [facility] Comment on above: Performed By: #### C BC ####[facility] Hmdluikdvr8526 [place] [phone]. Farhat Leal RBC 3.69 106/ul Critically low 4.70-6.10 [facility] Comment on above: Performed By: #### C BC ####[facility] Zachkytptj5541 [place] [phone]. Farhat Leal WBC 7.7 103/ul Normal 4.0-11.0 [facility] Comment on above: Performed By: #### C BC ####[facility] Thjnkntssr6621 [place] [phone] Leal PROF 14(COMP METB)on 023 Albumin [Mass/Vol] 2.5 g/dL Critically low 3.4-5.[address] [facility] Comment on above: Performed By: #### C MP ####[facility] Xhpxnsmytm5533 [place] [address]Dr. Farhat Leal Albumin/Globulin [Mass ratio] 0.8 {ratio} Normal [facility] Comment on above: Performed By: #### C MP ####[facility] Lhkkmgcoxe4087 [place] [address]Dr. Farhat Leal ALP [Catalytic activity/Vol] 60 U/L Normal 46-116 [facility] Comment on above: Performed By: #### C MP ####[facility] Oltgmqegzs4169[address] [place], [place] [address]Dr. Farhat Leal ALT [Catalytic activity/Vol] 16 U/L Normal 16-63 [facility] Comment on above: Performed By: #### C MP ####[facility] Eojxapgdnn304[address] [place], [place] [address]Dr. Farhat Leal Anion gap [Moles/Vol] 9.1 mmol/L Normal [facility] Comment on above: Performed By: #### C MP ####[facility] Xwvcfmaqvc9[address] [place], [place] [address]Dr. Farhat Leal AST [Catalytic activity/Vol] 31 U/L Normal 15-37 [facility] Comment on above: Performed By: #### C MP ####[facility] Qtidtfyrck5564[address] [place], [place] [address]Dr. Farhat Leal Bilirubin [Mass/Vol] 0.3 mg/dL Normal 0.2-1.0 [facility] Comment on above: Performed By: #### C MP ####[facility] Epkjqgmcyi8556[address] [place], [place] [address]Dr. Farhat Leal Calcium [Mass/Vol] 8.2 mg/dL Critically low 8.5-10.[address] [facility] Comment on above: Performed By: #### C MP ####[facility] Prqkxhkcak[address] [place], [place] [address]Dr. Farhat Leal Chloride [Moles/Vol] 106 mmol/L Normal 98-107 [facility] Comment on above: Performed By: #### C MP ####[facility] Wbiiehxwkq9393 [place] [phone]. Farhat Leal CO2 [Moles/Vol] 27.0 mmol/L Normal 21.0-32.0 [facility] Comment on above: Performed By: #### C MP ####[facility] Idqsipmgtq2369 [place] [phone]. Farhat Leal Creatinine [Mass/Vol] 1.51 mg/dL Critically high 0.70-1.30 [facility] Comment on above: Performed By: #### C MP ####[facility] Zvwbuxbniv0406 [place] [phone]. Farhat Leal EGFR-AF KAZAKH 55 mL/min/1.73m2 Critically low >=60 [facility] Comment on above: Performed By: #### C MP ####[facility] Wshvibolgp6397 [place] [phone]. Farhat Elvis EGFR-NON AF KAZAKH 45 mL/min/1.73m2 Critically low >=60 [facility] Comment on above: Performed By: #### C MP ####[facility] Mouehjsdhb6000 [place] [phone]. Farhat Leal Globulin (S) [Mass/Vol] 3.2 g/dL Normal [facility] Comment on above: Performed By: #### C MP ####[facility] Ftdenlsxaw4018 [place] [phone]. Farhat Leal Glucose [Mass/Vol] 165 mg/dL Critically high 74-106 [facility] Comment on above: Performed By: #### C MP ####[facility] Orfzodieke9323 [place] [phone]. Farhat Leal Potassium [Moles/Vol] 4.1 mmol/L Normal 3.5-5.1 [facility] Comment on above: Performed By: #### C MP ####[facility] Rdtgshbaxc5708 [place] [phone]. Farhat Leal Protein [Mass/Vol] 5.7 g/dL Critically low 6.4-8.[address] [facility] Comment on above: Performed By: #### C MP ####[facility] Jioamlpewo6156 [place] [phone]. Farhat Leal Sodium [Moles/Vol] 138 mmol/L Normal 136-145 [facility] Comment on above: Performed By: #### C MP ####[facility] Kdccxcksqi8625 [place] [phone]. Farhat Leal Urea nitrogen [Mass/Vol] 51.0 mg/dL Critically high 7.0-18.0 [facility] Comment on above: Performed By: #### C MP ####[facility] Jafdbuqdtd4374 [place] [address]Dr. Farhat Leal Urea nitrogen/Creatinine [Mass ratio] 33.8 mg/mg Normal [facility] Comment on above: Performed By: #### C MP ####[facility] Gfyhsstobj[address] [place], [place] [address]Dr. Farhat Leal FK506 (TACROLIMUS) WHOLE BLO ODon 06-15-2022 Tacrolimus (FK506), Blood 16.4 ng/mL Normal 2.0-20.0 [facility] Comment on above: Result Comment: Trou gh (immediately following transplant) 15.0 . Trough (steady state, 2 weeks or more after transplant): 3.0 - 8.0 . Performed by LC-MS/MS technology. Performed By: #### F K506T ####[facility] Ndewlubnty74[address] [place], [place] [address]Dr. Farhat Leal PROTIMEon 06-15-2022 INR Coag (PPP) [Relative time] 1.64 {INR} Normal [facility] Comment on above: Performed By: #### P T ####[facility] Npxjgnvbqm[address] [place], [place] [address]Dr. Farhat Leal INR GUIDELINES SEE BELOW Normal [facility] Comment on above: Result Comment: MALINA RED INR: 2.0 - 3.0 CONDITIONS NOT LISTED BELOW 2.5 - 3.5 FOR PROSTHETIC HEART VALVE REPLACEMENT 2.5 - 3.5 RECURRENT THROMBOSIS Performed By: #### P T ####[facility] [address]rm[address] [place] [address]Dr. Farhat Leal PT Coag (PPP) [Time] 16.9 s Critically high 9.0-11.6 [facility] Comment on above: Performed By: #### P T ####[facility] Zrgiitnpnp[address] [place], [place] [address]Dr. Madelynlorri Leal CBC AUTO DIFFon 06-12-2022 BASO # 0.0 103/ul Normal 0.0-0.1 [facility] Comment on above: Performed By: #### C BC ####[facility] Canmbjcfts[address] [place], [place] [address]Dr. Farhat Leal Basophils/100 WBC (Bld) 0.4 % Normal 0.2-2.0 [facility] Comment on above: Performed By: #### C BC ####[facility] Vhbdoafeap[address] [place], [place] [address]Dr. Farhat Leal EO # 0.4 103/ul Normal 0.0-0.7 [facility] Comment on above: Performed By: #### C BC ####[facility] Itsqnwijay[address] [place], [place] [address]Dr. Farhat Leal Eosinophils/100 WBC (Bld) 5.4 % Normal 0.9-7.0 [facility] Comment on above: Performed By: #### C BC ####[facility] Kcydtodfpf[address] [place], [place] [address]Dr. Farhat Leal Erythrocyte distribution width (RBC) [Ratio] 14.7 % Normal 11.0-15.0 [facility] Comment on above: Performed By: #### C BC ####[facility] Snaorpumyu[address] [place], [place] [address]Dr. Farhat Leal Hematocrit (Bld) [Volume fraction] 34.8 % Critically low 42.0-54.0 [facility] Comment on above: Performed By: #### C BC ####[facility] Eeznvpmqyj[address] [place], [place] [address]Dr. Farhat Leal Hemoglobin (Bld) [Mass/Vol] 11.7 g/dL Critically low 14.0-18.0 [facility] Comment on above: Performed By: #### C BC ####[facility] [address]qp[address] [place] [id number]. Farhat Leal IG # 0.02 10e3/ul Normal 0.00-0.03 [facility] Comment on above: Performed By: #### C BC ####[facility] Ekwmlqvmbi264[address] [place] [id number]. Farhat Leal IG % 0.3 % Normal 0.0-0.5 [facility] Comment on above: Performed By: #### C BC ####[facility] Zipofohokt[address] [place] [address]Dr. Farhat Leal LYMPH # 2.5 103/ul Normal 1.2-3.8 [facility] Comment on above: Performed By: #### C BC ####[facility] Ujhwchvqij32[address] [place] [address]Dr. Madelynlorri Leal Lymphocytes/100 WBC (Bld) 36.8 % Normal 20.5-60.0 [facility] Comment on above: Performed By: #### C BC ####[facility] Gwwpwhclsw[address] [place] [address]Dr. Farhat Leal MANUAL DIFF REQ NO Normal [facility] Comment on above: Performed By: #### C BC ####[facility] Xwtgailmxq29[address] [place] [id number]. Farhat Leal MCH (RBC) [Entitic mass] 30.9 pg Normal 25.9-34.0 [facility] Comment on above: Performed By: #### C BC ####[facility] Kkqmuxstpt[address] [place], [place] [address]Dr. Farhat Leal MCHC (RBC) [Mass/Vol] 33.6 g/dL Normal 29.9-35.2 [facility] Comment on above: Performed By: #### C BC ####[facility] Tyiajowrfg6[address] [place] [id number]. Farhat Leal MCV (RBC) [Entitic vol] 91.8 fL Normal 80.0-94.0 [facility] Comment on above: Performed By: #### C BC ####[facility] Qhuiyxglgh2047 [place] [id number]. Farhat Leal MONO # 0.8 103/ul Normal 0.3-0.8 [facility] Comment on above: Performed By: #### C BC ####[facility] Snxroxowjw4747 [place] [id number]. Farhat Leal Monocytes/100 WBC (Bld) 11.9 % Normal 1.7-12.0 [facility] Comment on above: Performed By: #### C BC ####[facility] Jthvdvzkwe9936 [place] [id number]. Farhat Leal NEUT # 3.1 103/ul Normal 1.4-6.5 [facility] Comment on above: Performed By: #### C BC ####[facility] Hfmuabrpzk5[address] [place], [place] [address]Dr. Farhat Leal Neutrophils/100 WBC (Bld) 45.2 % Normal 43.0-75.0 [facility] Comment on above: Performed By: #### C BC ####[facility] Dpnptzvxja5785 [place] [id number]. Farhat Leal Platelet mean volume (Bld) [Entitic vol] 10.5 fL Normal 9.5-13.5 [facility] Comment on above: Performed By: #### C BC ####[facility] Tnhuoxcopt5[address] [place] [id number]. Farhat Leal PLT 175 103/ul Normal 150-450 [facility] Comment on above: Performed By: #### C BC ####[facility] Cmzldejzyz[address] [place], [place] [address]Dr. Farhat Leal RBC 3.79 106/ul Critically low 4.70-6.10 [facility] Comment on above: Performed By: #### C BC ####[facility] Votjeobrrf8[address] [place] [phone]. Farhat Leal WBC 6.8 103/ul Normal 4.0-11.0 [facility] Comment on above: Performed By: #### C BC ####[facility] Cuwynexbjm7[address] [place] [address]Dr. Farhat Leal MAGNESIUMon 06-12-2022 Magnesium [Mass/Vol] 1.6 mg/dL Critically low 1.8-2.4 [facility] Comment on above: Performed By: #### C MP, MG, PHOS ####[facility] Ozgebwswks[address] [place] [address]Dr. Farhat Leal PHOSPHORUSon 06-12-2022 Phosphate [Mass/Vol] 3.8 mg/dL Normal 2.6-4.7 [facility] Comment on above: Performed By: #### C MP, MG, PHOS ####[facility] Tcmrtvxgqh44[address] [place] [address]Dr. Farhat Leal PROF 14(COMP METB)on 023 Albumin [Mass/Vol] 2.6 g/dL Critically low 3.4-5.0 [facility] Comment on above: Performed By: #### C MP, MG, PHOS ####[facility] Ryhbqplmnw[address] [place], [place] [address]Dr. Farhat Leal Albumin/Globulin [Mass ratio] 0.8 {ratio} Normal [facility] Comment on above: Performed By: #### C MP, MG, PHOS ####[facility] Sihuyqwksn70[address] [place] [address]Dr. Farhat Leal ALP [Catalytic activity/Vol] 64 U/L Normal 46-116 [facility] Comment on above: Performed By: #### C MP, MG, PHOS ####[facility] Zhtsufookq6[address] [place] [address]Dr. Farhat Leal ALT [Catalytic activity/Vol] 18 U/L Normal 16-63 [facility] Comment on above: Performed By: #### C MP, MG, PHOS ####[facility] Bcqbifhhco85[address] [place] [address]Dr. Farhat Leal Anion gap [Moles/Vol] 12.9 mmol/L Normal [facility] Comment on above: Performed By: #### C MP, MG, PHOS ####[facility] Itttlmfjyw3306 [place] [address]Dr. Farhat Leal AST [Catalytic activity/Vol] 18 U/L Normal 15-37 [facility] Comment on above: Performed By: #### C MP, MG, PHOS ####[facility] Jryxtenelw2669 [place] [address]Dr. Farhat Leal Bilirubin [Mass/Vol] 0.4 mg/dL Normal 0.2-1.0 [facility] Comment on above: Performed By: #### C MP, MG, PHOS ####[facility] Dsifgfnabz[address] [place], [place] [address]Dr. Farhat Leal Calcium [Mass/Vol] 8.7 mg/dL Normal 8.5-10.1 [facility] Comment on above: Performed By: #### C MP, MG, PHOS ####[facility] Jcaceaomdy5[address] [place], [place] [address]Dr. Farhat Leal Chloride [Moles/Vol] 105 mmol/L Normal 98-107 [facility] Comment on above: Performed By: #### C MP, MG, PHOS ####[facility] Jyvvkkxkve50[address] [place] [address]Dr. Farhat Leal CO2 [Moles/Vol] 27.9 mmol/L Normal 21.0-32.0 The [facility] Comment on above: Performed By: #### C MP, MG, PHOS ####[facility] Xhhphksrtr[address] [place], [place] [address]Dr. Farhat Leal Creatinine [Mass/Vol] 1.53 mg/dL Critically high 0.70-1.30 [facility] Comment on above: Performed By: #### C MP, MG, PHOS ####[facility] Pgnpeokyzu52[address] [place], [place] [address]Dr. Farhat Leal EGFR-AF KAZAKH 54 mL/min/1.73m2 Critically low >=60 [facility] Comment on above: Performed By: #### C MP, MG, PHOS ####[facility] Yxaekpzpus59[address] [place] [address]Dr. Farhat Leal EGFR-NON AF KAZAKH 44 mL/min/1.73m2 Critically low >=60 [facility] Comment on above: Performed By: #### C MP, MG, PHOS ####[facility] Zclmyybkor29[address] [place] [address]Dr. Farhta Leal Globulin (S) [Mass/Vol] 3.4 g/dL Normal [facility] Comment on above: Performed By: #### C MP, MG, PHOS ####[facility] Gnmmhbivzm0057 [place] [address]Dr. Farhat Leal Glucose [Mass/Vol] 179 mg/dL Critically high 74-106 T [facility] Comment on above: Performed By: #### C MP, MG, PHOS ####[facility] Ryqpyuvlgb02[address] [place], [place] [address]Dr. Farhat Leal Potassium [Moles/Vol] 3.8 mmol/L Normal 3.5-5.1 [facility] Comment on above: Performed By: #### C MP, MG, PHOS ####[facility] Zkuxgbkafy[address] [place], [place] [address]Dr. Farhat Leal Protein [Mass/Vol] 6.0 g/dL Critically low 6.4-8.[address] [facility] Comment on above: Performed By: #### C MP, MG, PHOS ####[facility] Uuictxrngt7[address] [place], [place] [address]Dr. Farhat Leal Sodium [Moles/Vol] 142 mmol/L Normal 136-145 [facility] Comment on above: Performed By: #### C MP, MG, PHOS ####[facility] Meegonsfpn[address] [place], [place] [address]Dr. Farhat Leal Urea nitrogen [Mass/Vol] 56.0 mg/dL Critically high 7.0-18.0 [facility] Comment on above: Performed By: #### C MP, MG, PHOS ####[facility] Rlcxxdhcxq28[address] [place] [address]Dr. Farhat Leal Urea nitrogen/Creatinine [Mass ratio] 36.6 mg/mg Normal [facility] Comment on above: Performed By: #### C MP, MG, PHOS ####[facility] Lvopldidwi77[address] [place] [address]Dr. Farhat Leal FK506 (TACROLIMUS) WHOLE BLO ODon 06-08-2022 Tacrolimus (FK506), Blood 13.2 ng/mL Normal 2.0-20.0 [facility] Comment on above: Result Comment: Trou gh (immediately following transplant) 15.0 . Trough (steady state, 2 weeks or more after transplant): 3.0 - 8.0 . Performed by LC-MS/MS technology. Performed By: #### F K506T ####[facility] Egdxwomkbj30[address] [place], [place] [address]Dr. Farhat Leal CBC AUTO DIFFon 06-05-2022 BASO # 0.1 103/ul Normal 0.0-0.1 [facility] Comment on above: Performed By: #### C BC ####[facility] Msuwruskbu[address] [place], [place] [address]Dr. Farhat Leal Basophils/100 WBC (Bld) 0.8 % Normal 0.2-2.0 [facility] Comment on above: Performed By: #### C BC ####[facility] Ienznizuzl9904[address] [place], [place] [address]Dr. Farhat Lael EO # 0.3 103/ul Normal 0.0-0.7 [facility] Comment on above: Performed By: #### C BC ####[facility] Mkrtfqghcf01[address] [place], [place] [address]Dr. Farhat Leal Eosinophils/100 WBC (Bld) 4.7 % Normal 0.9-7.0 [facility] Comment on above: Performed By: #### C BC ####[facility] Tqtfcxnenm87[address] [place], [place] [address]Dr. Farhat Leal Erythrocyte distribution width (RBC) [Ratio] 15.1 % Critically high 11.0-15.0 [facility] Comment on above: Performed By: #### C BC ####[facility] Jfgcpiyetc0[address] [place], [place] [address]Dr. Farhat Leal Hematocrit (Bld) [Volume fraction] 35.5 % Critically low 42.0-54.0 [facility] Comment on above: Performed By: #### C BC ####[facility] Qlkacufeua4424 [place] [address]Dr. Farhat Leal Hemoglobin (Bld) [Mass/Vol] 11.7 g/dL Critically low 14.0-18.0 [facility] Comment on above: Performed By: #### C BC ####[facility] Ybrfvejsfh6060 [place] [address]Dr. Farhat Leal IG # 0.01 10e3/ul Normal 0.00-0.03 [facility] Comment on above: Performed By: #### C BC ####[facility] Afkaupnbkh8703 [place] [address]Dr. Farhat Leal IG % 0.2 % Normal 0.0-0.5 [facility] Comment on above: Performed By: #### C BC ####[facility] Dkxekvfuel3828[address] [place], [place] [address]Dr. Farhat Leal LYMPH # 2.1 103/ul Normal 1.2-3.8 [facility] Comment on above: Performed By: #### C BC ####[facility] Ibdtskfpuu6898[address] [place], [place] [address]Dr. Farhat Leal Lymphocytes/100 WBC (Bld) 34.5 % Normal 20.5-60.0 [facility] Comment on above: Performed By: #### C BC ####[facility] Batsgymkod[address] [place] [address]Dr. Farhat Leal MANUAL DIFF REQ NO Normal [facility] Comment on above: Performed By: #### C BC ####[facility] Sunvesxual4166 [place] [address]Dr. Farhat Leal MCH (RBC) [Entitic mass] 30.6 pg Normal 25.9-34.0 [facility] Comment on above: Performed By: #### C BC ####[facility] S[address]ajmcmjmm[address] [place], [place] [address]Dr. Farhat Leal MCHC (RBC) [Mass/Vol] 33.0 g/dL Normal 29.9-35.2 [facility] Comment on above: Performed By: #### C BC ####[facility] Jjobekqhjo2068 [place] [id number]. Farhat Leal MCV (RBC) [Entitic vol] 92.9 fL Normal 80.0-94.0 [facility] Comment on above: Performed By: #### C BC ####[facility] Phnuvivzaz9468 [place] [address]Dr. Farhat Leal MONO # 0.7 103/ul Normal 0.3-0.8 [facility] Comment on above: Performed By: #### C BC ####[facility] Bhirzslwdf1124 [place] [address]Dr. Farhat Elvis Monocytes/100 WBC (Bld) 11.4 % Normal 1.7-12.0 [facility] Comment on above: Performed By: #### C BC ####[facility] Tulvclidnt[address] [place], [place] [address]Dr. Farhat Leal NEUT # 2.9 103/ul Normal 1.4-6.5 [facility] Comment on above: Performed By: #### C BC ####[facility] Xfwylnhbwh[address] [place], [place] [address]Dr. Farhat Elvis Neutrophils/100 WBC (Bld) 48.4 % Normal 43.0-75.0 [facility] Comment on above: Performed By: #### C BC ####[facility] Etlwyxjkrk[address] [place], [place] [address]Dr. Farhat Elvis Platelet mean volume (Bld) [Entitic vol] 10.7 fL Normal 9.5-13.5 [facility] Comment on above: Performed By: #### C BC ####[facility] Lxxbrrbemm9591 [place] [id number]. Farhat Elvis PLT 185 103/ul Normal 150-450 [facility] Comment on above: Performed By: #### C BC ####[facility] Kdiphrwjus1630 [place] [address]Dr. Farhat Leal RBC 3.82 106/ul Critically low 4.70-6.10 [facility] Comment on above: Performed By: #### C BC ####[facility] Qafpgxktgh3232 [place] [id number]. Farhat Leal WBC 6.0 103/ul Normal 4.0-11.0 [facility] Comment on above: Performed By: #### C BC ####[facility] Xghgvezvza2664 [place] [id number]. Farhat Leal MAGNESIUMon 06-05-2022 Magnesium [Mass/Vol] 1.9 mg/dL Normal 1.8-2.4 [facility] Comment on above: Performed By: #### P HOS, MG ####[facility] Lginszbtja5787 [place] [address]Dr. Farhat Leal PHOSPHORUSon 06-05-2022 Phosphate [Mass/Vol] 4.4 mg/dL Normal 2.6-4.7 [facility] Comment on above: Performed By: #### P HOS, MG ####[facility] Vrazvazdpc34[address] [place] [address]Dr. Farhat Elvis PROTIMEon 06-05-2022 INR Coag (PPP) [Relative time] 2.16 {INR} Normal [facility] Comment on above: Performed By: #### P T ####[facility] Ubtwebpcst[address] [place], [place] [address]Dr. Farhat Leal INR GUIDELINES SEE BELOW Normal [facility] Comment on above: Result Comment: MLAINA RED INR: 2.0 - 3.0 CONDITIONS NOT LISTED BELOW 2.5 - 3.5 FOR PROSTHETIC HEART VALVE REPLACEMENT 2.5 - 3.5 RECURRENT THROMBOSIS Performed By: #### P T ####[facility] Ivupfxnlpe0785 [place] [address]Dr. Farhat Leal PT Coag (PPP) [Time] 21.9 s Critically high 9.0-11.6 [facility] Comment on above: Performed By: #### P T ####[facility] Muaotlkdzn4658 [place] [address]Dr. Farhat Elvis FK506 (TACROLIMUS) WHOLE BLO ODon 06-01-2022 Tacrolimus (FK506), Blood 26.4 ng/mL Invalid Interpretation Code 2.0-20.0 [facility] Comment on above: Result Comment: Trou gh (immediately following transplant) 15.0 . Trough (steady state, 2 weeks or more after transplant): 3.0 - 8.0 . Performed by LC-MS/MS technology.Patient drug level exceeds published reference range. Evaluateclinically for signs of potential toxicity. Performed By: #### F K506T ####[facility] Zplkfluwsg[address] [place], [place] [address]DrSkylar Leal CBC AUTO DIFFon 05-29-2022 BASO # 0.0 103/ul Normal 0.0-0.1 [facility] Comment on above: Performed By: #### C BC ####[facility] Zujxnczuzc70[address] [place], [place] [address]DrSkylar Leal Basophils/100 WBC (Bld) 0.6 % Normal 0.2-2.0 [facility] Comment on above: Performed By: #### C BC ####[facility] Vzsbjvcowy13[address] [place], [place] [address]DrSkylar Leal EO # 0.3 103/ul Normal 0.0-0.7 [facility] Comment on above: Performed By: #### C BC ####[facility] Xjzxvvrrvs5[address] [place], [place] [address]DrSkylar Leal Eosinophils/100 WBC (Bld) 4.7 % Normal 0.9-7.0 [facility] Comment on above: Performed By: #### C BC ####[facility] Rswiwbgiyh15[address] [place], [place] [address]DrSkylar Leal Erythrocyte distribution width (RBC) [Ratio] 15.3 % Critically high 11.0-15.0 [facility] Comment on above: Performed By: #### C BC ####[facility] Zmyfqhqwdn[address] [place], [place] [address]DrSkylar Leal Hematocrit (Bld) [Volume fraction] 36.6 % Critically low 42.0-54.0 [facility] Comment on above: Performed By: #### C BC ####[facility] Xwvzzyjjdb6[address] [place], [place] [address]DrSkylar Leal Hemoglobin (Bld) [Mass/Vol] 12.3 g/dL Critically low 14.0-18.0 [facility] Comment on above: Performed By: #### C BC ####[facility] Ywunvqzvwf026[address] [place] [address]DrSkylar Leal IG # 0.02 10e3/ul Normal 0.00-0.03 [facility] Comment on above: Performed By: #### C BC ####[facility] Shjpxztkcd8244 [place] [address]DrSkylar Leal IG % 0.3 % Normal 0.0-0.5 [facility] Comment on above: Performed By: #### C BC ####[facility] Syqtgdxpme7[address] [place], [place] [address]DrSkylar Leal LYMPH # 2.8 103/ul Normal 1.2-3.8 [facility] Comment on above: Performed By: #### C BC ####[facility] Cecndhpcsv[address] [place], [place] [address]DrSkylar Leal Lymphocytes/100 WBC (Bld) 44.4 % Normal 20.5-60.0 [facility] Comment on above: Performed By: #### C BC ####[facility] Wzhftbdbeb14[address] [place], [place] [address]DrSkylar Leal MANUAL DIFF REQ NO Normal [facility] Comment on above: Performed By: #### C BC ####[facility] Gckfnuxrid65[address] [place], [place] [address]DrSkylar Leal MCH (RBC) [Entitic mass] 30.4 pg Normal 25.9-34.0 [facility] Comment on above: Performed By: #### C BC ####[facility] Zoclxlbvok[address] [place], [place] [address]DrSkylar Leal MCHC (RBC) [Mass/Vol] 33.6 g/dL Normal 29.9-35.2 [facility] Comment on above: Performed By: #### C BC ####[facility] Taljymhunw[address] [place], [place] [address]DrSkylar Leal MCV (RBC) [Entitic vol] 90.4 fL Normal 80.0-94.0 [facility] Comment on above: Performed By: #### C BC ####[facility] Vdycjbowfr98[address] [place], [place] [address]Dr. Farhat Leal MONO # 0.7 103/ul Normal 0.3-0.8 [facility] Comment on above: Performed By: #### C BC ####[facility] Ixeakibjdm[address] [place], [place] [address]Dr. Farhat Leal Monocytes/100 WBC (Bld) 10.7 % Normal 1.7-12.0 [facility] Comment on above: Performed By: #### C BC ####[facility] Qudagzehrf07[address] [place], [place] [address]Dr. Farhat Leal NEUT # 2.5 103/ul Normal 1.4-6.5 [facility] Comment on above: Performed By: #### C BC ####[facility] Pglkvvxnbw[address] [place], [place] [address]Dr. Farhat Leal Neutrophils/100 WBC (Bld) 39.3 % Critically low 43.0-75.0 [facility] Comment on above: Performed By: #### C BC ####[facility] Zscdegmico[address] [place], [place] [address]Dr. Farhat Leal Platelet mean volume (Bld) [Entitic vol] 10.5 fL Normal 9.5-13.5 [facility] Comment on above: Performed By: #### C BC ####[facility] Pkqypyvsgl[address] [place], [place] [address]Dr. Farhat Elvis PLT 190 103/ul Normal 150-450 [facility] Comment on above: Performed By: #### C BC ####[facility] Mldmokgjsn[address] [place], [place] [address]Dr. Madelynlorri Elvis RBC 4.05 106/ul Critically low 4.70-6.10 [facility] Comment on above: Performed By: #### C BC ####[facility] Kclnaxfygz04[address] [place], [place] [address]Dr. Farhat Leal WBC 6.4 103/ul Normal 4.0-11.0 [facility] Comment on above: Performed By: #### C BC ####[facility] Upmtmtbsod59[address] [place] [address]Dr. Farhat Leal PROF 14(COMP METB)on 023 Albumin [Mass/Vol] 2.5 g/dL Critically low 3.4-5.0 [facility] Comment on above: Performed By: #### C MP ####[facility] Lfavhipkqg[address] [place], [place] [address]Dr. Farhat Leal Albumin/Globulin [Mass ratio] 0.8 {ratio} Normal [facility] Comment on above: Performed By: #### C MP ####[facility] Wguarwdimw9[address] [place], [place] [address]Dr. Farhat Leal ALP [Catalytic activity/Vol] 61 U/L Normal 46-116 [facility] Comment on above: Performed By: #### C MP ####[facility] Crpeecofgr[address] [place], [place] [address]Dr. Farhat Leal ALT [Catalytic activity/Vol] 16 U/L Normal 16-63 [facility] Comment on above: Performed By: #### C MP ####[facility] Ntwuldnrvg[address] [place], [place] [address]Dr. Farhat Leal Anion gap [Moles/Vol] 12.3 mmol/L Normal [facility] Comment on above: Performed By: #### C MP ####[facility] Eosoptzzkn67[address] [place], [place] [address]Dr. Farhat Leal AST [Catalytic activity/Vol] 18 U/L Normal 15-37 [facility] Comment on above: Performed By: #### C MP ####[facility] Ewwuxtiavh[address] [place], [place] [address]Dr. Farhat Leal Bilirubin [Mass/Vol] 0.5 mg/dL Normal 0.2-1.0 [facility] Comment on above: Performed By: #### C MP ####[facility] Adszmkwyzt[address] [place], [place] [address]Dr. Farhat Leal Calcium [Mass/Vol] 8.6 mg/dL Normal 8.5-10.1 [facility] Comment on above: Performed By: #### C MP ####[facility] Yeugkndxrw[address] [place] [address]Dr. Farhat Elvis Chloride [Moles/Vol] 105 mmol/L Normal 98-107 [facility] Comment on above: Performed By: #### C MP ####[facility] Nttoigfqsj[address] [place] [address]Dr. Farhat Elvis CO2 [Moles/Vol] 28.6 mmol/L Normal 21.0-32.0 [facility] Comment on above: Performed By: #### C MP ####[facility] Tiiayrajrt[address] [place], [place] [address]Dr. Farhat Leal Creatinine [Mass/Vol] 1.47 mg/dL Critically high 0.70-1.30 [facility] Comment on above: Performed By: #### C MP ####[facility] Bexouzhgce99[address] [place], [place] [address]Dr. Farhat Elvis EGFR-AF KAZAKH 56 mL/min/1.73m2 Critically low >=60 [facility] Comment on above: Performed By: #### C MP ####[facility] Xfjxluzuof264[address] [place], [place] [address]Dr. Madelynlorri Elvis EGFR-NON AF KAZAKH 46 mL/min/1.73m2 Critically low >=60 [facility] Comment on above: Performed By: #### C MP ####[facility] Bdnwgqsyxw[address] [place], [place] [address]Dr. Farhat Leal Globulin (S) [Mass/Vol] 3.3 g/dL Normal [facility] Comment on above: Performed By: #### C MP ####[facility] Wkugvzrceh38[address] [place], [place] [address]Dr. Farhat Leal Glucose [Mass/Vol] 164 mg/dL Critically high 74-106 T [facility] Comment on above: Performed By: #### C MP ####[facility] Lzdjtqemad8[address] [place], [place] [address]Dr. Farhat Leal Potassium [Moles/Vol] 3.9 mmol/L Normal 3.5-5.1 [facility] Comment on above: Performed By: #### C MP ####[facility] Fxboikbbqj7[address] [place] [address]Dr. Farhat Leal Protein [Mass/Vol] 5.8 g/dL Critically low 6.4-8.2 Th e [facility] Comment on above: Performed By: #### C MP ####[facility] Mmulwpzqvf9596 [place] [address]Dr. Farhat Leal Sodium [Moles/Vol] 142 mmol/L Normal 136-145 [facility] Comment on above: Performed By: #### C MP ####[facility] Ytkiaoakuk[address] [place], [place] [address]Dr. Farhat Leal Urea nitrogen [Mass/Vol] 53.0 mg/dL Critically high 7.0-18.0 [facility] Comment on above: Performed By: #### C MP ####[facility] Ukarcljatm[address] [place], [place] [address]Dr. Farhat Leal Urea nitrogen/Creatinine [Mass ratio] 36.1 mg/mg Normal [facility] Comment on above: Performed By: #### C MP ####[facility] Wsydyaqvdu6[address] [place], [place] [address]DrSkylar Leal PROTIMEon 05-29-2022 INR Coag (PPP) [Relative time] 2.41 {INR} Normal [facility] Comment on above: Performed By: #### P T ####[facility] Thkmczjcco45[address] [place], [place] [address]Dr. Farhat Leal INR GUIDELINES SEE BELOW Normal [facility] Comment on above: Result Comment: MALINA RED INR: 2.0 - 3.0 CONDITIONS NOT LISTED BELOW 2.5 - 3.5 FOR PROSTHETIC HEART VALVE REPLACEMENT 2.5 - 3.5 RECURRENT THROMBOSIS Performed By: #### P T ####[facility] Ynxusbyszc5[address] [place], [place] [address]Dr. Farhat Leal PT Coag (PPP) [Time] 24.3 s Critically high 9.0-11.6 [facility] Comment on above: Performed By: #### P T ####[facility] Rxxvqrtksj3693[address] [place], [place] [address]Dr. Farhat Leal FK506 (TACROLIMUS) WHOLE BLO ODon 05-25-2022 Tacrolimus (FK506), Blood 5.1 ng/mL Normal 2.0-20.0 [facility] Comment on above: Result Comment: Trou gh (immediately following transplant) 15.0 . Trough (steady state, 2 weeks or more after transplant): 3.0 - 8.0 . Performed by LC-MS/MS technology. Performed By: #### F K506T ####[facility] Jveeduosmh696[address] [place], [place] [address]Dr. Farhat Leal CBC AUTO DIFFon 05-22-2022 BASO # 0.0 103/ul Normal 0.0-0.1 [facility] Comment on above: Performed By: #### C BC ####[facility] Qwmnezrvcn6057[address] [place], [place] [address]Dr. Farhat Leal Basophils/100 WBC (Bld) 0.5 % Normal 0.2-2.0 [facility] Comment on above: Performed By: #### C BC ####[facility] Cifzphxetx4426[address] [place], [place] [address]Dr. Farhat Leal EO # 0.2 103/ul Normal 0.0-0.7 The [facility] Comment on above: Performed By: #### C BC ####[facility] Mlyvchhykq[address] [place], [place] [address]Dr. Farhat Leal Eosinophils/100 WBC (Bld) 4.0 % Normal 0.9-7.0 The [facility] Comment on above: Performed By: #### C BC ####[facility] Oozekiuxqn6276[address] [place], [place] [address]Dr. Farhat Leal Erythrocyte distribution width (RBC) [Ratio] 15.5 % Critically high 11.0-15.0 [facility] Comment on above: Performed By: #### C BC ####[facility] Htitusgguw3049[address] [place], [place] [address]Dr. Farhat Leal Hematocrit (Bld) [Volume fraction] 34.1 % Critically low 42.0-54.0 [facility] Comment on above: Performed By: #### C BC ####[facility] Svsfmpkrsl[address] [place] [address]Dr. Farhat Leal Hemoglobin (Bld) [Mass/Vol] 11.3 g/dL Critically low 14.0-18.0 [facility] Comment on above: Performed By: #### C BC ####[facility] Hnrlqggpmk5[address] [place] [address]Dr. Farhat Leal IG # 0.03 10e3/ul Normal 0.00-0.03 [facility] Comment on above: Performed By: #### C BC ####[facility] Cngfqmgmat4510 [place] [address]Dr. Farhat Leal IG % 0.5 % Normal 0.0-0.5 [facility] Comment on above: Performed By: #### C BC ####[facility] Qlozclfapb9[address] [place], [place] [address]Dr. Farhat Leal LYMPH # 2.1 103/ul Normal 1.2-3.8 [facility] Comment on above: Performed By: #### C BC ####[facility] Oszkvjgncj1774[address] [place], [place] [address]Dr. Madelynlorri Leal Lymphocytes/100 WBC (Bld) 34.6 % Normal 20.5-60.0 [facility] Comment on above: Performed By: #### C BC ####[facility] Zavucawlwg14[address] [place] [address]Dr. Farhat Leal MANUAL DIFF REQ NO Normal [facility] Comment on above: Performed By: #### C BC ####[facility] Imriismnkq0784 [place] [address]Dr. Farhat Leal MCH (RBC) [Entitic mass] 30.3 pg Normal 25.9-34.0 The [facility] Comment on above: Performed By: #### C BC ####[facility] Vfrphfrsvj2981 [place] [address]Dr. Farhat Leal MCHC (RBC) [Mass/Vol] 33.1 g/dL Normal 29.9-35.2 The [facility] Comment on above: Performed By: #### C BC ####[facility] Dkcrgdbopz9[address] [place] [id number]. Farhat Leal MCV (RBC) [Entitic vol] 91.4 fL Normal 80.0-94.0 The [facility] Comment on above: Performed By: #### C BC ####[facility] Xopdtimccz0402 [place] [id number]. Farhat Leal MONO # 0.7 103/ul Normal 0.3-0.8 [facility] Comment on above: Performed By: #### C BC ####[facility] Qhtgysdbtm9082 [place] [address]Dr. Farhat Leal Monocytes/100 WBC (Bld) 11.6 % Normal 1.7-12.0 [facility] Comment on above: Performed By: #### C BC ####[facility] Dvagvqzkph45[address] [place], [place] [address]Dr. Farhat Leal NEUT # 2.9 103/ul Normal 1.4-6.5 [facility] Comment on above: Performed By: #### C BC ####[facility] Ygffiwitqd22[address] [place], [place] [address]Dr. Farhat Leal Neutrophils/100 WBC (Bld) 48.8 % Normal 43.0-75.0 The [facility] Comment on above: Performed By: #### C BC ####[facility] Ttuqpquisx5[address] [place] [id number]. Farhat Leal Platelet mean volume (Bld) [Entitic vol] 10.9 fL Normal 9.5-13.5 The [facility] Comment on above: Performed By: #### C BC ####[facility] Owjshuzlop29[address] [place] [id number]. Farhat Leal PLT 186 103/ul Normal 150-450 The [facility] Comment on above: Performed By: #### C BC ####[facility] Bvjobzyawr7[address] [place] [address]Dr. Farhat Elvis RBC 3.73 106/ul Critically low 4.70-6.10 [facility] Comment on above: Performed By: #### C BC ####[facility] Hvfmnixlxw[address] [place] [address]Dr. Farhat Leal WBC 6.0 103/ul Normal 4.0-11.0 [facility] Comment on above: Performed By: #### C BC ####[facility] Cdrjikxfvx8935 [place] [address]Dr. Farhat Leal PROF 14(COMP METB)on 023 Albumin [Mass/Vol] 2.7 g/dL Critically low 3.4-5.[address] [facility] Comment on above: Performed By: #### C MP ####[facility] Vgtfivdzvx4984 [place] [address]Dr. Farhat Leal Albumin/Globulin [Mass ratio] 0.8 {ratio} Normal [facility] Comment on above: Performed By: #### C MP ####[facility] Irnczfabpv1786[address] [place], [place] [address]Dr. Farhat Leal ALP [Catalytic activity/Vol] 60 U/L Normal 46-116 [facility] Comment on above: Performed By: #### C MP ####[facility] Pnkfgibhop6086[address] [place], [place] [address]Dr. Farhat Leal ALT [Catalytic activity/Vol] 17 U/L Normal 16-63 [facility] Comment on above: Performed By: #### C MP ####[facility] Ioxhjttlyq9419[address] [place], [place] [address]Dr. Farhat Leal Anion gap [Moles/Vol] 9.6 mmol/L Normal [facility] Comment on above: Performed By: #### C MP ####[facility] Qkemdkwtvp384[address] [place], [place] [address]Dr. Farhat Leal AST [Catalytic activity/Vol] 14 U/L Critically low 15-37 [facility] Comment on above: Performed By: #### C MP ####[facility] Lswtdoefxj4308[address] [place], [place] [address]Dr. Farhat Leal Bilirubin [Mass/Vol] 0.5 mg/dL Normal 0.2-1.0 [facility] Comment on above: Performed By: #### C MP ####[facility] Dlirzqtvym0134 [place] [id number]. Farhat Leal Calcium [Mass/Vol] 8.4 mg/dL Critically low 8.5-10.[address] [facility] Comment on above: Performed By: #### C MP ####[facility] Yfwqzlsulq3614 [place] [address]Dr. Farhat Leal Chloride [Moles/Vol] 104 mmol/L Normal 98-107 [facility] Comment on above: Performed By: #### C MP ####[facility] Jrgkbzaiyi6920 [place] [address]Dr. Farhat Leal CO2 [Moles/Vol] 27.2 mmol/L Normal 21.0-32.0 [facility] Comment on above: Performed By: #### C MP ####[facility] Pcculemnyg[address] [place], [place] [address]Dr. Farhat Leal Creatinine [Mass/Vol] 1.24 mg/dL Normal 0.70-1.30 [facility] Comment on above: Performed By: #### C MP ####[facility] Nmxnxpmpdt8207 [place] [address]Dr. Farhat Leal EGFR-AF KAZAKH >60 Normal >=60 [facility] Comment on above: Performed By: #### C MP ####[facility] Flkhiqlddu07[address] [place] [address]Dr. Farhat Leal EGFR-NON AF KAZAKH 57 mL/min/1.73m2 Critically low >=60 [facility] Comment on above: Performed By: #### C MP ####[facility] Szcsgyagjj6463 [place] [phone]. Farhat Leal Globulin (S) [Mass/Vol] 3.3 g/dL Normal [facility] Comment on above: Performed By: #### C MP ####[facility] Uzevjrazrx4047 [place] [address]Dr. Farhat Leal Glucose [Mass/Vol] 275 mg/dL Critically high 74-106 T [facility] Comment on above: Performed By: #### C MP ####[facility] Ngmqruvusa5561 [place] [phone]. Farhat Leal Potassium [Moles/Vol] 3.8 mmol/L Normal 3.5-5.1 [facility] Comment on above: Performed By: #### C MP ####[facility] Cotivlktac9859 [place] [address]Dr. Farhat Leal Protein [Mass/Vol] 6.0 g/dL Critically low 6.4-8.2 Th e [facility] Comment on above: Performed By: #### C MP ####[facility] Sydtifvidw2308[address] [place], [place] [address]Dr. Farhat Leal Sodium [Moles/Vol] 137 mmol/L Normal 136-145 [facility] Comment on above: Performed By: #### C MP ####[facility] Chgmtjhxip7712[address] [place], [place] [address]Dr. Farhat Leal Urea nitrogen [Mass/Vol] 54.0 mg/dL Critically high 7.0-18.0 [facility] Comment on above: Performed By: #### C MP ####[facility] Xysfybetbq4286[address] [place], [place] [address]Dr. Farhat Leal Urea nitrogen/Creatinine [Mass ratio] 43.5 mg/mg Normal [facility] Comment on above: Performed By: #### C MP ####[facility] Hqenadezwa2555[address] [place], [place] [address]Dr. Farhat Leal PROTIMEon 05-22-2022 INR Coag (PPP) [Relative time] 2.27 {INR} Normal [facility] Comment on above: Performed By: #### P T ####[facility] Mqyrkowbjk5825[address] [place], [place] [address]Dr. Farhat Leal INR GUIDELINES SEE BELOW Normal [facility] Comment on above: Result Comment: MALINA RED INR: 2.0 - 3.0 CONDITIONS NOT LISTED BELOW 2.5 - 3.5 FOR PROSTHETIC HEART VALVE REPLACEMENT 2.5 - 3.5 RECURRENT THROMBOSIS Performed By: #### P T ####[facility] Lsbgzbppej3855[address] [place], [place] [address]Dr. Farhat Leal PT Coag (PPP) [Time] 23.0 s Critically high 9.0-11.6 The [facility] Comment on above: Performed By: #### P T ####[facility] Cvxduqclpb6874[address] [place], [place] [address]Dr. Farhat Leal FK506 (TACROLIMUS) WHOLE BLO ODon 05-19-2022 Tacrolimus (FK506), Blood 7.8 ng/mL Normal 2.0-20.0 The [facility] Comment on above: Result Comment: Trou gh (immediately following transplant) 15.0 . Trough (steady state, 2 weeks or more after transplant): 3.0 - 8.0 . Performed by LC-MS/MS technology. Performed By: #### F K506T ####[facility] Mfqzweddzi2447[address] [place], [place] [address]Dr. Farhat Elvis CBC AUTO DIFFon 05-15-2022 BASO # 0.0 103/ul Normal 0.0-0.1 The [facility] Comment on above: Performed By: #### C BC ####[facility] Ndxpewbjhm8484[address] [place], [place] [address]Dr. Madelynlorri Leal Basophils/100 WBC (Bld) 0.4 % Normal 0.2-2.0 The [facility] Comment on above: Performed By: #### C BC ####[facility] Hkpwbpnmjm1938[address] [place], [place] [address]Dr. Farhat Leal EO # 0.2 103/ul Normal 0.0-0.7 The [facility] Comment on above: Performed By: #### C BC ####[facility] Owfvvuftrb032[address] [place], [place] [address]Dr. Farhat Leal Eosinophils/100 WBC (Bld) 3.0 % Normal 0.9-7.0 The [facility] Comment on above: Performed By: #### C BC ####[facility] Qsgvlkijor2397[address] [place], [place] [address]Dr. Farhat Leal Erythrocyte distribution width (RBC) [Ratio] 15.7 % Critically high 11.0-15.0 The [facility] Comment on above: Performed By: #### C BC ####[facility] Wjdipysgak8[address] [place] [address]Dr. Farhat Leal Hematocrit (Bld) [Volume fraction] 36.8 % Critically low 42.0-54.0 The [facility] Comment on above: Performed By: #### C BC ####[facility] Xhwvodscmt1185 [place] [address]Dr. Farhat Elvis Hemoglobin (Bld) [Mass/Vol] 12.4 g/dL Critically low 14.0-18.0 The [facility] Comment on above: Performed By: #### C BC ####[facility] Yfpxzwfrwa2997 [place] [address]Dr. Farhat Leal IG # 0.01 10e3/ul Normal 0.00-0.03 [facility] Comment on above: Performed By: #### C BC ####[facility] Qinworijfs6625[address] [place], [place] [address]Dr. Farhat Leal IG % 0.1 % Normal 0.0-0.5 The [facility] Comment on above: Performed By: #### C BC ####[facility] Rxnvuaxgnf193[address] [place], [place] [address]Dr. Madelynlorri Leal LYMPH # 2.4 103/ul Normal 1.2-3.8 The [facility] Comment on above: Performed By: #### C BC ####[facility] Gjmvpxvgqh54[address] [place], [place] [address]Dr. Farhat Leal Lymphocytes/100 WBC (Bld) 35.6 % Normal 20.5-60.0 The [facility] Comment on above: Performed By: #### C BC ####[facility] Eoflzvrfhw[address] [place], [place] [address]Dr. Madelynlorri Leal MANUAL DIFF REQ NO Normal [facility] Comment on above: Performed By: #### C BC ####[facility] Kcwesximah9562[address] [place], [place] [address]Dr. Farhat Leal MCH (RBC) [Entitic mass] 30.1 pg Normal 25.9-34.0 The [facility] Comment on above: Performed By: #### C BC ####[facility] Dlwqaghois0764 [place] [id number]. Farhat Leal MCHC (RBC) [Mass/Vol] 33.7 g/dL Normal 29.9-35.2 The [facility] Comment on above: Performed By: #### C BC ####[facility] Tjlksvefxs6871 [place] [phone]. Farhat Leal MCV (RBC) [Entitic vol] 89.3 fL Normal 80.0-94.0 The [facility] Comment on above: Performed By: #### C BC ####[facility] Busucsties3294 [place] [id number]. Farhat Leal MONO # 0.7 103/ul Normal 0.3-0.8 The [facility] Comment on above: Performed By: #### C BC ####[facility] Qdpoblhcuo9108[address] [place], [place] [address]Dr. Madelynlorri Leal Monocytes/100 WBC (Bld) 10.8 % Normal 1.7-12.0 The [facility] Comment on above: Performed By: #### C BC ####[facility] S[address]ztikpimh[address] [place], [place] [address]Dr. Farhat Leal NEUT # 3.4 103/ul Normal 1.4-6.5 The [facility] Comment on above: Performed By: #### C BC ####[facility] Difnljrfrq[address] [place], [place] [address]Dr. Farhat Leal Neutrophils/100 WBC (Bld) 50.1 % Normal 43.0-75.0 The [facility] Comment on above: Performed By: #### C BC ####[facility] Swapzlxmlx4884 [place] [phone]. Farhat Leal Platelet mean volume (Bld) [Entitic vol] 10.2 fL Normal 9.5-13.5 The [facility] Comment on above: Performed By: #### C BC ####[facility] Fjuzzfvakt17[address] [place], [place] [address]Dr. Farhat Elvis PLT 190 103/ul Normal 150-450 The [facility] Comment on above: Performed By: #### C BC ####[facility] Mxhbeneefd264[address] [place] [address]Dr. Farhat Leal RBC 4.12 106/ul Critically low 4.70-6.10 [facility] Comment on above: Performed By: #### C BC ####[facility] Cxcrqzjpsa8584 [place] [address]Dr. Farhat Leal WBC 6.8 103/ul Normal 4.0-11.0 [facility] Comment on above: Performed By: #### C BC ####[facility] Jkqdwtqgna5998 [place] [address]Dr. Farhat Leal PROF 14(COMP METB)on 023 Albumin [Mass/Vol] 2.8 g/dL Critically low 3.4-5.0 [facility] Comment on above: Performed By: #### C MP ####[facility] Vxvzqmursg1567[address] [place], [place] [address]Dr. Farhat Leal Albumin/Globulin [Mass ratio] 0.9 {ratio} Normal [facility] Comment on above: Performed By: #### C MP ####[facility] Tamqmmuoet9606[address] [place], [place] [address]Dr. Farhat Leal ALP [Catalytic activity/Vol] 66 U/L Normal 46-116 [facility] Comment on above: Performed By: #### C MP ####[facility] Bxjtciidgz5477[address] [place], [place] [address]Dr. Farhat Leal ALT [Catalytic activity/Vol] 15 U/L Critically low 16-63 [facility] Comment on above: Performed By: #### C MP ####[facility] Oxgseixeeg2507[address] [place], [place] [address]Dr. Farhat Leal Anion gap [Moles/Vol] 11.1 mmol/L Normal [facility] Comment on above: Performed By: #### C MP ####[facility] Qkwccuyicm7978[address] [place], [place] [address]Dr. Farhat Leal AST [Catalytic activity/Vol] 14 U/L Critically low 15-37 [facility] Comment on above: Performed By: #### C MP ####[facility] Qoopzzzikw7113 [place] [address]Dr. Farhat Leal Bilirubin [Mass/Vol] 0.8 mg/dL Normal 0.2-1.0 [facility] Comment on above: Performed By: #### C MP ####[facility] Gdzxmnzfwn504[address] [place], [place] [address]Dr. Farhat Leal Calcium [Mass/Vol] 8.9 mg/dL Normal 8.5-10.1 The [facility] Comment on above: Performed By: #### C MP ####[facility] Wddidamaee3499[address] [place], [place] [address]Dr. Farhat Leal Chloride [Moles/Vol] 101 mmol/L Normal 98-107 [facility] Comment on above: Performed By: #### C MP ####[facility] Mzsrkifnap[address] [place], [place] [address]Dr. Farhat Elvis CO2 [Moles/Vol] 28.2 mmol/L Normal 21.0-32.0 The [facility] Comment on above: Performed By: #### C MP ####[facility] Nzmcrsaykl3872[address] [place], [place] [address]Dr. Farhat Elvis Creatinine [Mass/Vol] 1.23 mg/dL Normal 0.70-1.30 [facility] Comment on above: Performed By: #### C MP ####[facility] Mjysmxnkcj25[address] [place], [place] [address]Dr. Madelynlorri Elvis EGFR-AF KAZAKH >60 Normal >=60 [facility] Comment on above: Performed By: #### C MP ####[facility] Hmumptuztl76[address] [place], [place] [address]Dr. Madelynlorri Elvis EGFR-NON AF KAZAKH 57 mL/min/1.73m2 Critically low >=60 The [facility] Comment on above: Performed By: #### C MP ####[facility] Qvxidwntvg5776[address] [place], [place] [address]Dr. Farhat Leal Globulin (S) [Mass/Vol] 3.2 g/dL Normal [facility] Comment on above: Performed By: #### C MP ####[facility] Mkfwijmmvt142[address] [place], [place] [address]Dr. Farhat Elvis Glucose [Mass/Vol] 333 mg/dL Critically high 74-106 T [facility] Comment on above: Performed By: #### C MP ####[facility] Jztowcsgrz35[address] [place] [address]Dr. Farhat Elvis Potassium [Moles/Vol] 4.3 mmol/L Normal 3.5-5.1 [facility] Comment on above: Performed By: #### C MP ####[facility] Wiaiqlflry[address] [place], [place] [address]Dr. Farhat Leal Protein [Mass/Vol] 6.0 g/dL Critically low 6.4-8.2 Th e [facility] Comment on above: Performed By: #### C MP ####[facility] Horvtawxia05[address] [place], [place] [address]Dr. Farhat Leal Sodium [Moles/Vol] 136 mmol/L Normal 136-145 [facility] Comment on above: Performed By: #### C MP ####[facility] Mdhzusyhlx8[address] [place], [place] [address]Dr. Farhat Leal Urea nitrogen [Mass/Vol] 58.0 mg/dL Critically high 7.0-18.0 [facility] Comment on above: Performed By: #### C MP ####[facility] Xxftenzzol[address] [place], [place] [address]Dr. Farhat Leal Urea nitrogen/Creatinine [Mass ratio] 47.2 mg/mg Normal [facility] Comment on above: Performed By: #### C MP ####[facility] Bvzcfuuxnz[address] [place], [place] [address]Dr. Farhat Leal PROTIMEon 05-13-2022 INR Coag (PPP) [Relative time] 3.51 {INR} Normal [facility] Comment on above: Performed By: #### P T ####[facility] Wzlqcsexnr17[address] [place], [place] [address]Dr. Farhat Leal INR GUIDELINES SEE BELOW Normal [facility] Comment on above: Result Comment: MALINA RED INR: 2.0 - 3.0 CONDITIONS NOT LISTED BELOW 2.5 - 3.5 FOR PROSTHETIC HEART VALVE REPLACEMENT 2.5 - 3.5 RECURRENT THROMBOSIS Performed By: #### P T ####[facility] Gwfoljstqg7475 [place] [address]DrSkylar Leal PT Coag (PPP) [Time] 34.7 s Critically high 9.0-11.6 [facility] Comment on above: Performed By: #### P T ####[facility] [address]xihvpvymq[address] [place], [place] [address]DrSkylar Leal FK506 (TACROLIMUS) WHOLE BLO ODon 05-11-2022 Tacrolimus (FK506), Blood 14.4 ng/mL Normal 2.0-20.0 [facility] Comment on above: Result Comment: Trou gh (immediately following transplant) 15.0 . Trough (steady state, 2 weeks or more after transplant): 3.0 - 8.0 . Performed by LC-MS/MS technology. Performed By: #### F K506T ####[facility] Gmhcpyorph[address] [place], [place] [address]DrSkylar Leal CBC AUTO DIFFon 05-08-2022 BASO # 0.0 103/ul Normal 0.0-0.1 [facility] Comment on above: Performed By: #### C BC ####[facility] Hfiqxaalxy[address] [place], [place] [address]DrSkylar Leal Basophils/100 WBC (Bld) 0.5 % Normal 0.2-2.0 [facility] Comment on above: Performed By: #### C BC ####[facility] Orgssrzujg[address] [place], [place] [address]DrSkylar Leal EO # 0.2 103/ul Normal 0.0-0.7 [facility] Comment on above: Performed By: #### C BC ####[facility] Yqjpudtpdl[address] [place], [place] [address]DrSkylar Leal Eosinophils/100 WBC (Bld) 2.9 % Normal 0.9-7.0 [facility] Comment on above: Performed By: #### C BC ####[facility] Nivemqwnyw[address] [place], [place] [address]DrSkylar Leal Erythrocyte distribution width (RBC) [Ratio] 16.0 % Critically high 11.0-15.0 [facility] Comment on above: Performed By: #### C BC ####[facility] X[address]bfsodjv[address] [place] [address]DrSkylar Leal Hematocrit (Bld) [Volume fraction] 35.7 % Critically low 42.0-54.0 [facility] Comment on above: Performed By: #### C BC ####[facility] Jpodgpluma[address] [place], [place] [address]DrSkylar Leal Hemoglobin (Bld) [Mass/Vol] 11.9 g/dL Critically low 14.0-18.0 [facility] Comment on above: Performed By: #### C BC ####[facility] Mjubokhdsq[address] [place], [place] [address]DrSkylar Leal IG # 0.03 10e3/ul Normal 0.00-0.03 [facility] Comment on above: Performed By: #### C BC ####[facility] Zdizwalgit[address] [place], [place] [address]DrSkylar Leal IG % 0.5 % Normal 0.0-0.5 [facility] Comment on above: Performed By: #### C BC ####[facility] Bwdfnhtweq8[address] [place], [place] [address]DrSkylar Leal LYMPH # 2.4 103/ul Normal 1.2-3.8 [facility] Comment on above: Performed By: #### C BC ####[facility] Bmaekvovcm8[address] [place], [place] [address]DrSkylar Leal Lymphocytes/100 WBC (Bld) 37.8 % Normal 20.5-60.0 [facility] Comment on above: Performed By: #### C BC ####[facility] Erbompvlro8219[address] [place], [place] [address]DrSkylar Leal MANUAL DIFF REQ NO Normal [facility] Comment on above: Performed By: #### C BC ####[facility] Cwfjdexyoa8[address] [place], [place] [address]DrSkylar Leal MCH (RBC) [Entitic mass] 30.4 pg Normal 25.9-34.0 [facility] Comment on above: Performed By: #### C BC ####[facility] Nqylxqiijj4197 [place] [address]Dr. Farhat Leal MCHC (RBC) [Mass/Vol] 33.3 g/dL Normal 29.9-35.2 [facility] Comment on above: Performed By: #### C BC ####[facility] Urdydpcowx1343[address] [place], [place] [address]DrSkylar Leal MCV (RBC) [Entitic vol] 91.1 fL Normal 80.0-94.0 [facility] Comment on above: Performed By: #### C BC ####[facility] Dfyupcfnkq[address] [place], [place] [address]DrSkylar Leal MONO # 0.7 103/ul Normal 0.3-0.8 [facility] Comment on above: Performed By: #### C BC ####[facility] Bqmoggkrty1595[address] [place], [place] [address]Dr. Farhat Leal Monocytes/100 WBC (Bld) 11.1 % Normal 1.7-12.0 [facility] Comment on above: Performed By: #### C BC ####[facility] Rbwgintflv4313[address] [place], [place] [address]DrSkylar Leal NEUT # 2.9 103/ul Normal 1.4-6.5 [facility] Comment on above: Performed By: #### C BC ####[facility] Rzhiegvcio8[address] [place], [place] [address]Dr. Farhat Leal Neutrophils/100 WBC (Bld) 47.2 % Normal 43.0-75.0 [facility] Comment on above: Performed By: #### C BC ####[facility] Dvcyzzbcst88[address] [place], [place] [address]DrSkylar Leal Platelet mean volume (Bld) [Entitic vol] 11.0 fL Normal 9.5-13.5 [facility] Comment on above: Performed By: #### C BC ####[facility] Amrzmqlkyt99[address] [place], [place] [address]Dr. Farhat Leal PLT 191 103/ul Normal 150-450 [facility] Comment on above: Performed By: #### C BC ####[facility] Xngedeinkl23[address] [place] [id number]. Farhat Leal RBC 3.92 106/ul Critically low 4.70-6.10 [facility] Comment on above: Performed By: #### C BC ####[facility] Dqfdnzrmvc3371 [place] [address]Dr. Farhat Leal WBC 6.2 103/ul Normal 4.0-11.0 [facility] Comment on above: Performed By: #### C BC ####[facility] Pwovqiqbhd2880 [place] [address]Dr. Farhat Leal MAGNESIUMon 05-08-2022 Magnesium [Mass/Vol] 1.9 mg/dL Normal 1.8-2.4 [facility] Comment on above: Performed By: #### P HOS, MG ####[facility] Uzujrdomse1584 [place] [address]Dr. Farhat Leal PHOSPHORUSon 05-08-2022 Phosphate [Mass/Vol] 4.5 mg/dL Normal 2.6-4.7 [facility] Comment on above: Performed By: #### P HOS, MG ####[facility] Mxzchexrgc8968[address] [place], [place] [address]Dr. Farhat Leal PROF 14(COMP METB)on 023 Albumin [Mass/Vol] 2.9 g/dL Critically low 3.4-5.0 [facility] Comment on above: Performed By: #### C MP ####[facility] Lvokoumhxc3839 [place] [address]Dr. Farhat Leal Albumin/Globulin [Mass ratio] 0.9 {ratio} Normal [facility] Comment on above: Performed By: #### C MP ####[facility] Igloegospt1516 [place] [address]Dr. Farhat Leal ALP [Catalytic activity/Vol] 70 U/L Normal 46-116 [facility] Comment on above: Performed By: #### C MP ####[facility] Chsgwvfsbe2314 [place] [id number]. Farhat Leal ALT [Catalytic activity/Vol] 13 U/L Critically low 16-63 [facility] Comment on above: Performed By: #### C MP ####[facility] Juhievpmtl2371 [place] [address]Dr. Farhat Leal Anion gap [Moles/Vol] 14.6 mmol/L Normal Th e [facility] Comment on above: Performed By: #### C MP ####[facility] Hsihipikgs1213 [place] [address]Dr. Farhat Leal AST [Catalytic activity/Vol] 17 U/L Normal 15-37 [facility] Comment on above: Performed By: #### C MP ####[facility] Sunhhciksj3519[address] [place], [place] [address]Dr. Farhat Leal Bilirubin [Mass/Vol] 0.8 mg/dL Normal 0.2-1.0 [facility] Comment on above: Performed By: #### C MP ####[facility] Piclfspvei6607[address] [place], [place] [address]Dr. Farhat Leal Calcium [Mass/Vol] 8.9 mg/dL Normal 8.5-10.1 [facility] Comment on above: Performed By: #### C MP ####[facility] Xrbpybxslo547[address] [place], [place] [address]Dr. Farhat Leal Chloride [Moles/Vol] 102 mmol/L Normal 98-107 [facility] Comment on above: Performed By: #### C MP ####[facility] Rslzsemcnf1107 [place] [address]Dr. Farhat Leal CO2 [Moles/Vol] 22.9 mmol/L Normal 21.0-32.0 The [facility] Comment on above: Performed By: #### C MP ####[facility] Pqehhpldkt8[address] [place], [place] [address]Dr. Farhat Leal Creatinine [Mass/Vol] 1.20 mg/dL Normal 0.70-1.30 [facility] Comment on above: Performed By: #### C MP ####[facility] Oexfxetjmc48[address] [place] [id number]. Farhat Leal EGFR-AF KAZAKH >60 Normal >=60 [facility] Comment on above: Performed By: #### C MP ####[facility] Vncmclduwr1176 [place] [address]Dr. Farhat Leal EGFR-NON AF KAZAKH 59 mL/min/1.73m2 Critically low >=60 [facility] Comment on above: Performed By: #### C MP ####[facility] Tevurlsnjz7558 [place] [address]Dr. Farhat Leal Globulin (S) [Mass/Vol] 3.1 g/dL Normal [facility] Comment on above: Performed By: #### C MP ####[facility] Npguapqdjf0[address] [place], [place] [address]Dr. Farhat Leal Glucose [Mass/Vol] 447 mg/dL Critically high 74-106 T [facility] Comment on above: Performed By: #### C MP ####[facility] Ivgmplhvgs9344[address] [place], [place] [address]Dr. Farhat Elvis Potassium [Moles/Vol] 4.5 mmol/L Normal 3.5-5.1 [facility] Comment on above: Performed By: #### C MP ####[facility] Gppsmkbkbc450[address] [place], [place] [address]Dr. Farhat Elvis Protein [Mass/Vol] 6.0 g/dL Critically low 6.4-8.[address] [facility] Comment on above: Performed By: #### C MP ####[facility] Yajpoupmxv9865 [place] [address]Dr. Farhat Leal Sodium [Moles/Vol] 135 mmol/L Critically low 136-[address] [facility] Comment on above: Performed By: #### C MP ####[facility] Iyttbkzsve4724[address] [place], [place] [address]Dr. Farhat Leal Urea nitrogen [Mass/Vol] 52.0 mg/dL Critically high 7.0-18.0 [facility] Comment on above: Performed By: #### C MP ####[facility] Fuqmegglml639[address] [place], [place] [address]DrSkylar Leal Urea nitrogen/Creatinine [Mass ratio] 43.3 mg/mg Normal [facility] Comment on above: Performed By: #### C MP ####[facility] Ecqrmdcnbd6710 [place] [address]DrSkylar Joshilorri Elvis PROTIMEon 05-06-2022 INR Coag (PPP) [Relative time] 2.25 {INR} Normal [facility] Comment on above: Performed By: #### P T ####[facility] Mjxrkbbppq2879 [place] [address]DrSkylar Leal INR GUIDELINES SEE BELOW Normal [facility] Comment on above: Result Comment: MALINA RED INR: 2.0 - 3.0 CONDITIONS NOT LISTED BELOW 2.5 - 3.5 FOR PROSTHETIC HEART VALVE REPLACEMENT 2.5 - 3.5 RECURRENT THROMBOSIS Performed By: #### P T ####[facility] Luvndkwwlc0657[address] [place], [place] [address]DrSkylar Leal PT Coag (PPP) [Time] 22.8 s Critically high 9.0-11.6 [facility] Comment on above: Performed By: #### P T ####[facility] Opehapezha6099[address] [place], [place] [address]DrSkylar Leal FK506 (TACROLIMUS) WHOLE BLO ODon 05-04-2022 Tacrolimus (FK506), Blood 10.4 ng/mL Normal 2.0-20.0 [facility] Comment on above: Result Comment: Trou gh (immediately following transplant) 15.0 . Trough (steady state, 2 weeks or more after transplant): 3.0 - 8.0 . Performed by LC-MS/MS technology. Performed By: #### F K506T ####[facility] Wmtwdjjmmx4299 [place] [address]DrSkylar Leal CBC AUTO DIFFon 05-01-2022 BASO # 0.1 103/ul Normal 0.0-0.1 [facility] Comment on above: Performed By: #### C BC ####[facility] Xukwrgfofx10[address] [place], [place] [address]DrSkylar Leal Basophils/100 WBC (Bld) 0.7 % Normal 0.2-2.0 [facility] Comment on above: Performed By: #### C BC ####[facility] Nloshtxhkp09[address] [place], [place] [address]Dr. Farhat Leal EO # 0.2 103/ul Normal 0.0-0.7 [facility] Comment on above: Performed By: #### C BC ####[facility] Lhilwzxens[address] [place], [place] [address]Dr. Farhat Leal Eosinophils/100 WBC (Bld) 3.2 % Normal 0.9-7.0 [facility] Comment on above: Performed By: #### C BC ####[facility] Opcthdtyvv1239[address] [place], [place] [address]Dr. Farhat Leal Erythrocyte distribution width (RBC) [Ratio] 16.4 % Critically high 11.0-15.0 [facility] Comment on above: Performed By: #### C BC ####[facility] Batovznykr0437[address] [place], [place] [address]Dr. Farhat Leal Hematocrit (Bld) [Volume fraction] 35.1 % Critically low 42.0-54.0 [facility] Comment on above: Performed By: #### C BC ####[facility] Cetegtcayo8[address] [place], [place] [address]Dr. Farhat Leal Hemoglobin (Bld) [Mass/Vol] 11.6 g/dL Critically low 14.0-18.0 [facility] Comment on above: Performed By: #### C BC ####[facility] Eeetgutntt5537[address] [place], [place] [address]Dr. Farhat Leal IG # 0.03 10e3/ul Normal 0.00-0.03 [facility] Comment on above: Performed By: #### C BC ####[facility] Dclwhssytm7[address] [place], [place] [address]Dr. Farhat Leal IG % 0.4 % Normal 0.0-0.5 [facility] Comment on above: Performed By: #### C BC ####[facility] Wmmglbabfk2593[address] [place], [place] [address]Dr. Farhat Leal LYMPH # 2.4 103/ul Normal 1.2-3.8 [facility] Comment on above: Performed By: #### C BC ####[facility] Rrmasvbvgf9542 [place] [address]Dr. Farhat Leal Lymphocytes/100 WBC (Bld) 35.1 % Normal 20.5-60.0 [facility] Comment on above: Performed By: #### C BC ####[facility] Wizizhloax5868 [place] [address]DrSkylar Leal MANUAL DIFF REQ NO Normal [facility] Comment on above: Performed By: #### C BC ####[facility] Nsbawcggfl3043 [place] [address]Dr. Farhat Leal MCH (RBC) [Entitic mass] 29.4 pg Normal 25.9-34.0 [facility] Comment on above: Performed By: #### C BC ####[facility] Fepeesvvtp687[address] [place], [place] [address]Dr. Farhat Leal MCHC (RBC) [Mass/Vol] 33.0 g/dL Normal 29.9-35.2 [facility] Comment on above: Performed By: #### C BC ####[facility] Zyapoukqpn9[address] [place], [place] [address]DrSkylar Leal MCV (RBC) [Entitic vol] 88.9 fL Normal 80.0-94.0 [facility] Comment on above: Performed By: #### C BC ####[facility] Qxevstccgm2227[address] [place], [place] [address]Dr. Farhat Leal MONO # 0.7 103/ul Normal 0.3-0.8 [facility] Comment on above: Performed By: #### C BC ####[facility] Nijqphodfw4612[address] [place], [place] [address]Dr. Farhat Leal Monocytes/100 WBC (Bld) 9.6 % Normal 1.7-12.0 [facility] Comment on above: Performed By: #### C BC ####[facility] Srfzzsossl4033[address] [place], [place] [address]Dr. Farhat Leal NEUT # 3.5 103/ul Normal 1.4-6.5 [facility] Comment on above: Performed By: #### C BC ####[facility] Rfvjddeegx0443 [place] [address]Dr. Farhat Leal Neutrophils/100 WBC (Bld) 51.0 % Normal 43.0-75.0 [facility] Comment on above: Performed By: #### C BC ####[facility] Bavkrhxchq8456 [place] [address]Dr. Farhat Leal Platelet mean volume (Bld) [Entitic vol] 10.3 fL Normal 9.5-13.5 [facility] Comment on above: Performed By: #### C BC ####[facility] Quqanaulbt7[address] [place], [place] [address]Dr. Farhat Leal PLT 184 103/ul Normal 150-450 [facility] Comment on above: Performed By: #### C BC ####[facility] Chkphcgqda5072 [place] [address]Dr. Farhat Leal RBC 3.95 106/ul Critically low 4.70-6.10 [facility] Comment on above: Performed By: #### C BC ####[facility] Jfwwvymzpd[address] [place], [place] [address]Dr. Farhat Leal WBC 7.0 103/ul Normal 4.0-11.0 [facility] Comment on above: Performed By: #### C BC ####[facility] Ziomodzxmx3634[address] [place], [place] [address]DrSkylar Leal PROF 14(COMP METB)on 023 Albumin [Mass/Vol] 2.6 g/dL Critically low 3.4-5.0 [facility] Comment on above: Performed By: #### C MP ####[facility] Nrpcahkzkg650[address] [place], [place] [address]DrSkylar Leal Albumin/Globulin [Mass ratio] 0.9 {ratio} Normal [facility] Comment on above: Performed By: #### C MP ####[facility] Gisnqxzcgm2282 [place] [address]DrSkylar Leal ALP [Catalytic activity/Vol] 53 U/L Normal 46-116 [facility] Comment on above: Performed By: #### C MP ####[facility] Tuywnpokzu0396 [place] [address]Dr. Farhat Leal ALT [Catalytic activity/Vol] 17 U/L Normal 16-63 [facility] Comment on above: Performed By: #### C MP ####[facility] Pkgeinwthu6705[address] [place], [place] [address]Dr. Farhat Leal Anion gap [Moles/Vol] 10.0 mmol/L Normal Th [facility] Comment on above: Performed By: #### C MP ####[facility] Uebdrwtryd1949[address] [place], [place] [address]Dr. Farhat Leal AST [Catalytic activity/Vol] 19 U/L Normal 15-37 [facility] Comment on above: Performed By: #### C MP ####[facility] Scaumgrbbm[address] [place], [place] [address]Dr. Farhat Leal Bilirubin [Mass/Vol] 0.5 mg/dL Normal 0.2-1.0 [facility] Comment on above: Performed By: #### C MP ####[facility] Ypepgihovi2668[address] [place], [place] [address]Dr. Farhat Leal Calcium [Mass/Vol] 8.4 mg/dL Critically low 8.5-10.1 [facility] Comment on above: Performed By: #### C MP ####[facility] Zesmytdxaz836[address] [place], [place] [address]Dr. Farhat Leal Chloride [Moles/Vol] 108 mmol/L Critically high 98-107 [facility] Comment on above: Performed By: #### C MP ####[facility] Oglzvncdwp0734[address] [place], [place] [address]Dr. Farhat Leal CO2 [Moles/Vol] 26.9 mmol/L Normal 21.0-32.0 [facility] Comment on above: Performed By: #### C MP ####[facility] Keljpbymym0176[address] [place], [place] [address]Dr. Farhat Leal Creatinine [Mass/Vol] 1.20 mg/dL Normal 0.70-1.30 [facility] Comment on above: Performed By: #### C MP ####[facility] Kxpduhllrn1580 [place] [id number]. Farhat Leal EGFR-AF KAZAKH >60 Normal >=60 [facility] Comment on above: Performed By: #### C MP ####[facility] Qapwmoxlkx8737 [place] [id number]. Farhat Elvis EGFR-NON AF KAZAKH 59 mL/min/1.73m2 Critically low >=60 [facility] Comment on above: Performed By: #### C MP ####[facility] Zqzabvamsm5709 [place] [id number]. Farhat Elvis Globulin (S) [Mass/Vol] 3.0 g/dL Normal [facility] Comment on above: Performed By: #### C MP ####[facility] Npouwrxmuk2343 [place] [address]Dr. Farhat Elvis Glucose [Mass/Vol] 213 mg/dL Critically high 74-106 [facility] Comment on above: Performed By: #### C MP ####[facility] Zofbytefjo7316 [place] [id number]. Farhat Elvis Potassium [Moles/Vol] 3.9 mmol/L Normal 3.5-5.1 [facility] Comment on above: Performed By: #### C MP ####[facility] Kgmvgxjrhs0274 [place] [id number]. Farhat Elvis Protein [Mass/Vol] 5.6 g/dL Critically low 6.4-8.[address] [facility] Comment on above: Performed By: #### C MP ####[facility] Pabfhjcseg9818 [place] [id number]. Farhat Leal Sodium [Moles/Vol] 141 mmol/L Normal 136-145 [facility] Comment on above: Performed By: #### C MP ####[facility] Avmpwmrhyw4046 [place] [phone]. Farhat Elvis Urea nitrogen [Mass/Vol] 61.0 mg/dL Critically high 7.0-18.0 [facility] Comment on above: Performed By: #### C MP ####[facility] Wmigcmkxzm6948 [place] [address]Dr. Farhat Leal Urea nitrogen/Creatinine [Mass ratio] 50.8 mg/mg Normal [facility] Comment on above: Performed By: #### C MP ####[facility] Nrjixybpwz[address] [place], [place] [address]Dr. Farhat Leal FK506 (TACROLIMUS) WHOLE BLO ODon 04-27-2022 Tacrolimus (FK506), Blood 16.5 ng/mL Normal 2.0-20.0 [facility] Comment on above: Result Comment: Trou gh (immediately following transplant) 15.0 . Trough (steady state, 2 weeks or more after transplant): 3.0 - 8.0 . Performed by LC-MS/MS technology. Performed By: #### F K506T ####[facility] Yrtsqjnout78[address] [place], [place] [address]DrSkylar Farhat Elvis CBC AUTO DIFFon 04-24-2022 BASO # 0.0 103/ul Normal 0.0-0.1 [facility] Comment on above: Performed By: #### C BC ####[facility] Yrvyomsfjn[address] [place], [place] [address]Dr. Madelynlorri Leal Basophils/100 WBC (Bld) 0.5 % Normal 0.2-2.0 [facility] Comment on above: Performed By: #### C BC ####[facility] Jxcvgmteky[address] [place], [place] [address]DrSkylar Farhat Elvis EO # 0.2 103/ul Normal 0.0-0.7 [facility] Comment on above: Performed By: #### C BC ####[facility] Sablurmylf3838[address] [place], [place] [address]Dr. Farhat Leal Eosinophils/100 WBC (Bld) 3.1 % Normal 0.9-7.0 [facility] Comment on above: Performed By: #### C BC ####[facility] Jwrbfzkcem3072[address] [place], [place] [address]Dr. Farhat Leal Erythrocyte distribution width (RBC) [Ratio] 16.3 % Critically high 11.0-15.0 [facility] Comment on above: Performed By: #### C BC ####[facility] Tckjpqbxtj0031 [place] [address]DrSkylar Leal Hematocrit (Bld) [Volume fraction] 34.0 % Critically low 42.0-54.0 [facility] Comment on above: Performed By: #### C BC ####[facility] Qawgpqavux5754 [place] [address]DrSkylar Leal Hemoglobin (Bld) [Mass/Vol] 11.6 g/dL Critically low 14.0-18.0 [facility] Comment on above: Performed By: #### C BC ####[facility] Kggqnfbprn6[address] [place], [place] [address]DrSkylar Leal IG # 0.02 10e3/ul Normal 0.00-0.03 [facility] Comment on above: Performed By: #### C BC ####[facility] Tekhgwtybm3788[address] [place], [place] [address]DrSkylar Leal IG % 0.4 % Normal 0.0-0.5 [facility] Comment on above: Performed By: #### C BC ####[facility] Xskeuvhmdz6113[address] [place], [place] [address]DrSkylar Leal LYMPH # 2.2 103/ul Normal 1.2-3.8 [facility] Comment on above: Performed By: #### C BC ####[facility] Jgankblxwg2119[address] [place], [place] [address]DrSkylar Leal Lymphocytes/100 WBC (Bld) 38.8 % Normal 20.5-60.0 [facility] Comment on above: Performed By: #### C BC ####[facility] Scqfezyuby69[address] [place], [place] [address]DrSkylar Leal MANUAL DIFF REQ NO Normal [facility] Comment on above: Performed By: #### C BC ####[facility] Tkhjuoaofp9777 [place] [address]DrSkylar Leal MCH (RBC) [Entitic mass] 30.1 pg Normal 25.9-34.0 [facility] Comment on above: Performed By: #### C BC ####[facility] Eaolavdjjy2109 [place] [address]Dr. Farhat Leal MCHC (RBC) [Mass/Vol] 34.1 g/dL Normal 29.9-35.2 [facility] Comment on above: Performed By: #### C BC ####[facility] Drbukaykxe8142 [place] [address]DrSkylar Leal MCV (RBC) [Entitic vol] 88.1 fL Normal 80.0-94.0 [facility] Comment on above: Performed By: #### C BC ####[facility] Bmxnklxjhl[address] [place], [place] [address]DrSkylar Leal MONO # 0.6 103/ul Normal 0.3-0.8 [facility] Comment on above: Performed By: #### C BC ####[facility] Ihdipbqzou5[address] [place], [place] [address]Dr. Farhat Leal Monocytes/100 WBC (Bld) 10.8 % Normal 1.7-12.0 [facility] Comment on above: Performed By: #### C BC ####[facility] Klfuuokjkd39[address] [place], [place] [address]DrSkylar Leal NEUT # 2.6 103/ul Normal 1.4-6.5 [facility] Comment on above: Performed By: #### C BC ####[facility] Zqypoeffoq9[address] [place], [place] [address]Dr. Farhat Leal Neutrophils/100 WBC (Bld) 46.4 % Normal 43.0-75.0 [facility] Comment on above: Performed By: #### C BC ####[facility] Mgjerebgne[address] [place], [place] [address]DrSyklar Leal Platelet mean volume (Bld) [Entitic vol] 10.9 fL Normal 9.5-13.5 [facility] Comment on above: Performed By: #### C BC ####[facility] [address] [place], [place] [address]Dr. Farhat Leal PLT 159 103/ul Normal 150-450 [facility] Comment on above: Performed By: #### C BC ####[facility] Yfdbypvgsc[address] [place] [address]Dr. Farhat Leal RBC 3.86 106/ul Critically low 4.70-6.10 [facility] Comment on above: Performed By: #### C BC ####[facility] [address]yzjz[address] [place] [address]Dr. Farhat Leal WBC 5.6 103/ul Normal 4.0-11.0 [facility] Comment on above: Performed By: #### C BC ####[facility] Rarwysivmt[address] [place] [address]Dr. Farhat Leal PROTIMEon 04-24-2022 INR Coag (PPP) [Relative time] 3.23 {INR} Normal [facility] Comment on above: Performed By: #### P T ####[facility] Uthogxdgea[address] [place] [address]Dr. Farhat Leal INR GUIDELINES SEE BELOW Normal [facility] Comment on above: Result Comment: MALINA RED INR: 2.0 - 3.0 CONDITIONS NOT LISTED BELOW 2.5 - 3.5 FOR PROSTHETIC HEART VALVE REPLACEMENT 2.5 - 3.5 RECURRENT THROMBOSIS Performed By: #### P T ####[facility] [address]wnrhqsxc[address] [place] [address]Dr. Farhat Leal PT Coag (PPP) [Time] 32.0 s Critically high 9.0-11.6 [facility] Comment on above: Performed By: #### P T ####[facility] Axcxyjkafv[address] [place] [address]Dr. Farhat Leal FK506 (TACROLIMUS) WHOLE BLO ODon 04-20-2022 Tacrolimus (FK506), Blood 13.9 ng/mL Normal 2.0-20.0 [facility] Comment on above: Result Comment: Trou gh (immediately following transplant) 15.0 . Trough (steady state, 2 weeks or more after transplant): 3.0 - 8.0 . Performed by LC-MS/MS technology. Performed By: #### F K506T ####[facility] [address]xdneoihc[address] [place] [id number]. Farhat Leal CBC AUTO DIFFon 04-17-2022 BASO # 0.0 103/ul Normal 0.0-0.1 [facility] Comment on above: Performed By: #### C BC ####[facility] [address] [place], [place] [address]Dr. Madelynlorri Leal Basophils/100 WBC (Bld) 0.4 % Normal 0.2-2.0 [facility] Comment on above: Performed By: #### C BC ####[facility] [address] [place], [place] [address]Dr. Farhat Elvis EO # 0.2 103/ul Normal 0.0-0.7 [facility] Comment on above: Performed By: #### C BC ####[facility] Fq[address]fr[address] [place], [place] [address]Dr. Madelynlorri Leal Eosinophils/100 WBC (Bld) 2.8 % Normal 0.9-7.0 [facility] Comment on above: Performed By: #### C BC ####[facility] [address] [place], [place] [address]Dr. Farhat Leal Erythrocyte distribution width (RBC) [Ratio] 16.1 % Critically high 11.0-15.0 [facility] Comment on above: Performed By: #### C BC ####[facility] [address]zb[address] [place], [place] [address]Dr. Farhat Leal Hematocrit (Bld) [Volume fraction] 35.7 % Critically low 42.0-54.0 [facility] Comment on above: Performed By: #### C BC ####[facility] [address] [place], [place] [address]Dr. Farhat Leal Hemoglobin (Bld) [Mass/Vol] 12.2 g/dL Critically low 14.0-18.0 [facility] Comment on above: Performed By: #### C BC ####[facility] [address]tiw[address] [place], [place] [address]Dr. Farhat Leal IG # 0.03 10e3/ul Normal 0.00-0.03 [facility] Comment on above: Performed By: #### C BC ####[facility] Utniaivhii[address] [place] [address]Dr. Madelynlorri Leal IG % 0.4 % Normal 0.0-0.5 [facility] Comment on above: Performed By: #### C BC ####[facility] Funyqymxkt[address] [place] [address]Dr. Farhat Elvis LYMPH # 2.4 103/ul Normal 1.2-3.8 [facility] Comment on above: Performed By: #### C BC ####[facility] [address]gd[address] [place], [place] [address]Dr. Madelynlorri Leal Lymphocytes/100 WBC (Bld) 36.1 % Normal 20.5-60.0 [facility] Comment on above: Performed By: #### C BC ####[facility] Txcr[address] [place], [place] [address]Dr. Farhat Leal MANUAL DIFF REQ NO Normal [facility] Comment on above: Performed By: #### C BC ####[facility] Uqyincxhvt[address] [place] [address]Dr. Farhat Elvis MCH (RBC) [Entitic mass] 30.3 pg Normal 25.9-34.0 [facility] Comment on above: Performed By: #### C BC ####[facility] Kfvcnidjjl14[address] [place] [address]Dr. Farhat Elvis MCHC (RBC) [Mass/Vol] 34.2 g/dL Normal 29.9-35.2 [facility] Comment on above: Performed By: #### C BC ####[facility] [address] [place], [place] [address]Dr. Farhat Elvis MCV (RBC) [Entitic vol] 88.6 fL Normal 80.0-94.0 [facility] Comment on above: Performed By: #### C BC ####[facility] [address]eb[address] [place], [place] [address]Dr. Farhat Leal MONO # 0.7 103/ul Normal 0.3-0.8 [facility] Comment on above: Performed By: #### C BC ####[facility] [address]xqjvdcnr[address] [place] [id number]. Farhat Leal Monocytes/100 WBC (Bld) 10.1 % Normal 1.7-12.0 [facility] Comment on above: Performed By: #### C BC ####[facility] Popboarkcr[address] [place] [address]Dr. Farhat Leal NEUT # 3.4 103/ul Normal 1.4-6.5 [facility] Comment on above: Performed By: #### C BC ####[facility] Tpthnjxxcc7190 [place] [id number]. Farhat Leal Neutrophils/100 WBC (Bld) 50.2 % Normal 43.0-75.0 [facility] Comment on above: Performed By: #### C BC ####[facility] Tekhz[address]rzc24[address] [place] [id number]. Madelynlorri Elvis Platelet mean volume (Bld) [Entitic vol] 11.8 fL Normal 9.5-13.5 [facility] Comment on above: Performed By: #### C BC ####[facility] Arjdkmjaqz[address] [place] [id number]. Farhat Elvis PLT 193 103/ul Normal 150-450 [facility] Comment on above: Performed By: #### C BC ####[facility] Ezqujggnta0[address] [place] [id number]. Madelynlorri Leal RBC 4.03 106/ul Critically low 4.70-6.10 [facility] Comment on above: Performed By: #### C BC ####[facility] Jerfvvycih5353 [place] [id number]. Farhat Leal WBC 6.8 103/ul Normal 4.0-11.0 [facility] Comment on above: Performed By: #### C BC ####[facility] Tspljgyski[address] [place] [address]Dr. Farhat Leal PROF 14(COMP METB)on 023 Albumin [Mass/Vol] 2.9 g/dL Critically low 3.4-5.0 [facility] Comment on above: Performed By: #### C MP ####[facility] Gsh[address]kjzv[address]87 [place] [address]Dr. Farhat Elvis Albumin/Globulin [Mass ratio] 0.9 {ratio} Normal [facility] Comment on above: Performed By: #### C MP ####[facility] Dxrsqsperl30[address] [place] [address]Dr. Farhat Leal ALP [Catalytic activity/Vol] 67 U/L Normal 46-116 [facility] Comment on above: Performed By: #### C MP ####[facility] [address]deb[address] [place], [place] [address]Dr. Farhat Leal ALT [Catalytic activity/Vol] 15 U/L Critically low 16-63 [facility] Comment on above: Performed By: #### C MP ####[facility] [address]grqsdnp[address] [place], [place] [address]Dr. Farhat Leal Anion gap [Moles/Vol] 10.8 mmol/L Normal [facility] Comment on above: Performed By: #### C MP ####[facility] Aiacgtofur[address] [place], [place] [address]Dr. Farhat Leal AST [Catalytic activity/Vol] 23 U/L Normal 15-37 [facility] Comment on above: Performed By: #### C MP ####[facility] B[address]wrgsngv[address] [place], [place] [address]Dr. Farhat Leal Bilirubin [Mass/Vol] 0.6 mg/dL Normal 0.2-1.0 [facility] Comment on above: Performed By: #### C MP ####[facility] Lukbrxsafr[address] [place], [place] [address]Dr. Farhat Leal Calcium [Mass/Vol] 8.7 mg/dL Normal 8.5-10.1 [facility] Comment on above: Performed By: #### C MP ####[facility] Xktwqajmzn[address] [place], [place] [address]Dr. Farhat Leal Chloride [Moles/Vol] 105 mmol/L Normal 98-107 [facility] Comment on above: Performed By: #### C MP ####[facility] Lytfuiewhq4789 [place] [id number]. Farhat Leal CO2 [Moles/Vol] 29.5 mmol/L Normal 21.0-32.0 [facility] Comment on above: Performed By: #### C MP ####[facility] Ygxorwvhul5413 [place] [id number]. Farhat Leal Creatinine [Mass/Vol] 1.37 mg/dL Critically high 0.70-1.30 [facility] Comment on above: Performed By: #### C MP ####[facility] Kyngnindhz6474 [place] [address]Dr. Farhat Leal EGFR-AF KAZAKH >60 Normal >=60 [facility] Comment on above: Performed By: #### C MP ####[facility] Uuulhxvhug[address] [place] [address]Dr. Farhat Elvis EGFR-NON AF KAZAKH 50 mL/min/1.73m2 Critically low >=60 [facility] Comment on above: Performed By: #### C MP ####[facility] Xoztbkegcu0487 [place] [id number]. Farhat Leal Globulin (S) [Mass/Vol] 3.1 g/dL Normal [facility] Comment on above: Performed By: #### C MP ####[facility] Ouxqfflbrw[address] [place] [address]Dr. Farhat Leal Glucose [Mass/Vol] 203 mg/dL Critically high 74-106 [facility] Comment on above: Performed By: #### C MP ####[facility] Uxwkzbjgvm8428 [place] [id number]. Farhat Leal Potassium [Moles/Vol] 4.3 mmol/L Normal 3.5-5.1 [facility] Comment on above: Performed By: #### C MP ####[facility] Wodetiigeg[address] [place] [address]Dr. Farhat Leal Protein [Mass/Vol] 6.0 g/dL Critically low 6.4-8.[address] [facility] Comment on above: Performed By: #### C MP ####[facility] Arjzvbyvig6899 [place] [id number]. Farhat Leal Sodium [Moles/Vol] 141 mmol/L Normal 136-145 [facility] Comment on above: Performed By: #### C MP ####[facility] Cnsvdvjuze7437 [place] [id number]. Farhat Leal Urea nitrogen [Mass/Vol] 65.0 mg/dL Critically high 7.0-18.0 [facility] Comment on above: Performed By: #### C MP ####[facility] Imomcqkrpi8958 [place] [address]Dr. Farhat Leal Urea nitrogen/Creatinine [Mass ratio] 47.4 mg/mg Normal [facility] Comment on above: Performed By: #### C MP ####[facility] Iaqsxypise[address] [place] [address]Dr. Farhat Leal PROTIMEon 04-15-2022 INR Coag (PPP) [Relative time] 3.88 {INR} Normal [facility] Comment on above: Performed By: #### P T ####[facility] Ykzoptaswn36[address] [place] [address]Dr. Farhat Leal INR GUIDELINES SEE BELOW Normal [facility] Comment on above: Result Comment: MALINA RED INR: 2.0 - 3.0 CONDITIONS NOT LISTED BELOW 2.5 - 3.5 FOR PROSTHETIC HEART VALVE REPLACEMENT 2.5 - 3.5 RECURRENT THROMBOSIS Performed By: #### P T ####[facility] [address] [place], [place] [address]Dr. Farhat Leal PT Coag (PPP) [Time] 38.1 s Critically high 9.0-11.6 [facility] Comment on above: Performed By: #### P T ####[facility] [address]ht[address]afj[address] [place], [place] [address]Dr. Farhat Leal Glucose Glucometer (BldC) [M ass/Vol]Ordered By: Sadia Aguilar on 04-14-2022 Glucose [Mass/Vol] 162 mg/dL [facility] Comment on above: Random Glucose Refer ence Range is dependent on time and content of last meal. Glucose of more than 200 mg/dL in a nonstressed, ambulatory subject supports the diagnosis of Diabetes Mellitus. Glucose Poct Glucometerson 0 04-14-2022 Commemt1 Glu2: Cleaned Meter Normal [facility] Comment on above: Result Comment: PERF ORMED BY: [facility] [place] [address] PATHOLOGIST FAMILY NURSE JOSE F ELLIOTT M.D. Performed By: #### G LULS #### Point of Care testing , Glucose [Mass/Vol] 162 mg/dL Normal [facility] Comment on above: Result Comment: [place] Glucose Reference Range is dependent on time and content of last meal. Glucose of more than 200 mg/dL in a nonstressed, ambulatory subject supports the diagnosis of Diabetes Mellitus. Performed By: #### G LURICO #### Point of Care testing , No Panel InformationOrdered By: Sadia Aguilar on 04-14-2022 Bedside Glucose Comment Glu2: cleaned meter [facility] MAGNESIUMon 04-13-2022 Magnesium [Mass/Vol] 1.7 mg/dL Critically low 1.8-2.4 [facility] Comment on above: Performed By: #### M HENRI Manzo ####[facility] W[address]zsvkows[address] [place] [address]Dr. Farhat Leal PHOSPHORUSon 04-13-2022 Phosphate [Mass/Vol] 4.8 mg/dL Critically high 2.6-4.7 [facility] Comment on above: Performed By: #### M HENRI Manzo ####[facility] Wvatmrdcmf[address] [place] [address]Dr. Farhat Leal PROTIMEon 04-13-2022 INR Coag (PPP) [Relative time] 3.16 {INR} Normal [facility] Comment on above: Performed By: #### P T ####[facility] Jcjripwsph[address] [place] [address]Dr. Farhat Leal INR GUIDELINES SEE BELOW Normal [facility] Comment on above: Result Comment: MALINA RED INR: 2.0 - 3.0 CONDITIONS NOT LISTED BELOW 2.5 - 3.5 FOR PROSTHETIC HEART VALVE REPLACEMENT 2.5 - 3.5 RECURRENT THROMBOSIS Performed By: #### P T ####[facility] [address]jevwfqnig[address] [place] [address]Dr. Farhat Leal PT Coag (PPP) [Time] 31.4 s Critically high 9.0-11.6 [facility] Comment on above: Performed By: #### P T ####[facility] Tobwxporsu[address] [place] [address]Dr. Farhat Leal MAGNESIUMon 03-11-2022 Magnesium [Mass/Vol] 1.6 mg/dL Critically low 1.8-2.4 [facility] Comment on above: Performed By: #### M HENRI Manzo ####[facility] Fwhrjiqaca[address] [place] [address]Dr. Farhat Leal PHOSPHORUSon 03-11-2022 Phosphate [Mass/Vol] 5.3 mg/dL Critically high 2.6-4.7 [facility] Comment on above: Performed By: #### M ANA ManzoS ####[facility] S[address]zxydav[address] [place], [place] [address]Dr. Farhat Leal CNOVon 02-26-2022 CNOV Office Visit (HONEY ) ALEX ALMONTE ([id number]) 1945 M TRN Date Time Provider Department 02/26/22 3:00 PM HINA PETERSON During your visit today, we recorded the following information about you: Temperature Pulse Blood pressure 96.6 degrees 75/minute 88/75 Hina Peterson MD, MD 02/26/2022 4:31 PM Signed [facility] [place] [facility] OF VASCULAR SURGERY OUTPATIENT VISIT DATE February 26, 2022 OUTPATIENT VISIT TYPE ESTABLISHED SERVICE DATE: 02/26/2022 SERVICE TIME: 4:26 PM PRIMARY CARE PHYSICIAN: Devon E Ball, DO HISTORY OF PRESENT ILLNESS: Mr. 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 Magic Cup Nobles with lunch aspirin, enteric coated (ASPIRIN, ENTERIC COATED) 81 mg EC tablet Take 1 tablet by (more content not included)... Normal [facility] Walter PROTIMEon 02-25-2022 INR Coag (PPP) [Relative time] 1.31 {INR} Normal [facility] Comment on above: Performed By: #### P T ####[facility] [address] [place] [id number]. Farhat Leal INR GUIDELINES SEE BELOW Normal [facility] Comment on above: Result Comment: MALINA RED INR: 2.0 - 3.0 CONDITIONS NOT LISTED BELOW 2.5 - 3.5 FOR PROSTHETIC HEART VALVE REPLACEMENT 2.5 - 3.5 RECURRENT THROMBOSIS Performed By: #### P T ####[facility] Kx[address]oy[address] [place] [address]DrSkylar Leal PT Coag (PPP) [Time] 13.7 s Critically high 9.0-11.6 [facility] Comment on above: Performed By: #### P T ####[facility] Z[address]jawjoxa[address] [place] [address]DrSkylar Leal CNPNon 02-19-2022 CNPN Telephone (TXCTGL) ALEX ALMONTE ([id number]) 1945 M TRN Date Time Provider Department 02/19/22 AUGUSTA MEDRANO TXCTGL During your visit today, we recorded the following information about you: Augusta Medrano RN 02/19/2022 11:16 AM Signed [facility] Emergency Department, called [...] by mouth daily with lunch. 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 DIABETES UNCOMPL ADULT-UNCONTRLLED [[id number]] 02/24/2002 KIDNEY TRANSPLANT STATUS [Z94.0] 09/07/2003 PROPHYLACTIC IMMUNOTHERAPY [Z29.8] 07/30/2006 PROGRAM SERVICES PLANNER STEROIDS [[id number]] 07/30/2006 VITAMIN D DEFICIENCY NOS [E55.9] 09/07/2008 [...] diabetes mellitus with diabetic peripher*11/29/2021 Atherosclerosis of kobuk artery of extremity w*11/29/2021 Malnutrition of moderate degree (HCC) [E44.0] 12/01/2021 Dermatitis associated with moisture [L30.8] 12/04/2021 Encounter Status:Closed by AUGUSTA MEDRANO on 02/19/22 [facility] Sonya 02-18-2022 CNPN Telephone (PODCCP) ALEX ALMONTE ([id number]) 1945 M [facility] Date Time Provider Department 02/18/22 DEVON MOREIRA PODCCP During your visit today, we recorded the following information about you: Yumiko Camelia 02/18/2022 3:16 PM Signed Reason for call: Mr. Almonte would like to request a sooner appointment with Dr. Peterson than 04/13/2022. Contact Name (if not the patient) Alex's nurse Home and cell number(Ask for Alex's nurse) [phone] Diagnosis 4 mo f/u wound check Best [...] by mouth daily with lunch. 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 Normal [facility] CNOVon 02-05-2022 CNOV Office Visit (TXCTGL ) ALEX ALMONTE ([id number]) 1945 M TRN Date Time Provider Department 02/05/22 8:20 AM [facility]NEY TXP [facility] TXCTGL During your visit today, we recorded the following information about you: Temperature Pulse Blood pressure 96.7 degrees 79/minute 72/42 Asia Pike MD 02/05/2022 9:38 AM Signed [facility] [place] Transplant Follow up Portions of this note were copied from the last encounter. Changes were made to appropriately reflect updated history and interval events, physical exam, data review, and medical decision making. Patient presents for renal tx follow up care - Hospital admission / discharge in November 2021 for osteomyelitis HPI: [place] is a 76 yr old male, s/p [...] date with medications. Patient brought paperwork from [facility] with all medications being received. Patient unsure if they have been drawing labs regularly. Last Tac from 01/19: 12.9 and K 5.9. In need of current labs. Lab orders will be sent with patient and follows as below: Kidney and Pancreas Transplant Standing Lab Orders [address] [facility] [address] [place], [place] [address] February 05, 2022 Alex Almonte 1945 [id number] STANDARD TESTING: Diagnosis Codes: Z94.0 Kidney Transplant [...] AT YOUR LABORATORY FACILITY AND FAX TO [phone]. PLEASE CALL [phone]. Provider: Dr. Pike Current Outpatient Medications Medication [...] 237 (more content not included)... Normal [facility] PROTEIN CREATININE RATIOon 1 04-08-2021 Protein/Creatinine (U) [Mass ratio] 0.10 mg/mg <0.15 mg/mg [facility] PROTIMEon 02-05-2022 INR Coag (PPP) [Relative time] 2.90 {INR} Normal [facility] Comment on above: Performed By: #### P T ####[facility] R[address]vc[address] [place] [id number]. Farhat Leal INR GUIDELINES SEE BELOW Normal [facility] Comment on above: Result Comment: MALINA RED INR: 2.0 - 3.0 CONDITIONS NOT LISTED BELOW 2.5 - 3.5 FOR PROSTHETIC HEART VALVE REPLACEMENT 2.5 - 3.5 RECURRENT THROMBOSIS Performed By: #### P T ####[facility] [address]athl[address] [place] [id number]. Farhat Leal PT Coag (PPP) [Time] 29.2 s Critically high 9.0-11.6 [facility] Comment on above: Performed By: #### P T ####[facility] Auftyyzqfj[address] [place] [address]Dr. Farhat Leal Prot/Creat Uron 02-05-2022 Protein/Creatinine (U) [Mass ratio] 0.10 mg/mg Normal <0.15 [facility] Comment on above: Order Comment: Speci men Type: URINE SPECIMENOrdering Facility: [facility] Address: [address] [place] [address] Result Comment: Adul t Proteinuria Categories: <0.15 mg/mg is considered normal to mildly increased 0.15 - 0.50 mg/mg is considered moderately increased >0.50 mg/mg is considered severely increased KDIGO. (2013). KDIGO 2012 Clinical Practice Guideline for the Evaluation and Management of Chronic Kidney Disease. Official Journal of the International Society of Nephrology, 3(1), 1-150. Performed By: #### 2 890-2 ####[facility] LABCLIA [id number] [place] [address] [place] Protein/Creatinine (U) [Mass ratio]on 02-05-2022 Creatinine (U) [Mass/Vol] 86.9 mg/dL 20.0 - 300.0 mg/dL [facility] Protein (U) [Mass/Vol] 9 mg/dL 0 - 20 mg/dL [facility] Creatinine (U) [Mass/Vol] 86.9 mg/dL Normal 20.0-300.0 [facility] Comment on above: Order Comment: Speci men Type: URINE SPECIMENOrdering Facility: [facility] Address: [address] Performed By: #### 2 890-2 ####[facility] LABCLIA [id number] [place] [address] [place] Protein (U) [Mass/Vol] 9 mg/dL Normal 0-20 [facility] Comment on above: Order Comment: Speci men Type: URINE SPECIMENOrdering Facility: [facility] Address: [address] [place] [address] Performed By: #### 2 890-2 ####[facility] LABCLIA [id number] [place] [address] [place] URINALYSIS, DIPSTICK ONLYon 02-05-2022 Bilirubin Ql (U) Negative Normal Negative [facility] Comment on above: Order Comment: Speci men Type: URINE SPECIMEN Ordering Facility: [facility] Address: [address] Performed By: #### U A #### [facility] LAB CLIA [id number] [address] [place] [address] [place] Clarity (Unsp spec) Clear Normal Clear [facility] Comment on above: Order Comment: Speci men Type: URINE SPECIMEN Ordering Facility: [facility] Address: [address] Performed By: #### U A #### [facility] CLIA [id number] [address] [place] [address] [place] Color (U) Yellow Normal Yellow [facility] Comment on above: Order Comment: Speci men Type: URINE SPECIMEN Ordering Facility: [facility] Address: [address] Performed By: #### U A #### [facility] CLIA [id number] [address] [place] Glucose Test strip (U) [Mass/Vol] 3+ Abnormal Trace, Negative [facility] Comment on above: Order Comment: Speci men Type: URINE SPECIMEN Ordering Facility: [facility] Address: [address] [address] Performed By: #### U A #### [facility] CLIA [id number] [address] [facility] Hemoglobin Ql (U) Negative Normal Negative, Trace [facility] Comment on above: Order Comment: Speci men Type: URINE SPECIMEN Ordering Facility: [facility] Address: [address] [address] Performed By: #### U A #### [facility] CLIA [id number] [address] [place] Ketones Ql (U) Trace Normal Negative, Trace [facility] Comment on above: Order Comment: Speci men Type: URINE SPECIMEN Ordering Facility: [facility] Address: [address] [address] Performed By: #### U A #### [facility] CLIA [id number] [address] Leukocyte esterase Test strip Ql (U) Negative Normal Negative, 25 Loraine/mL [facility] Comment on above: Order Comment: Speci men Type: URINE SPECIMEN Ordering Facility: [facility] Address: [address] Performed By: #### U A #### [facility] CLIA [id number] [address] [place] [address] [place] Nitrite Ql (U) Negative Normal Negative [facility] Comment on above: Order Comment: Speci men Type: URINE SPECIMEN Ordering Facility: [facility] Address: [address] Performed By: #### U A #### [facility] CLIA [id number] [facility] [place] [address] [place] pH (U) 5.5 [pH] Normal 5.0-8.0 [facility] Comment on above: Order Comment: Speci men Type: URINE SPECIMEN Ordering Facility: [facility] Address: [address] [place] [address] Performed By: #### U A #### [facility] CLIA [id number] [address] [place] [address] [place] Protein (U) [Mass/Vol] Negative Normal Trace , Negative [facility] Comment on above: Order Comment: Speci men Type: URINE SPECIMEN Ordering Facility: [facility] Address: [address] [place] [address] Performed By: #### U A #### [facility] [place] [id number] [address] [place] [address] [place] Specific gravity (U) [Rel density] 1.014 Normal 1.005-1.030 [facility] Comment on above: Order Comment: Speci men Type: URINE SPECIMEN Ordering Facility: [facility] Address: [address] [place] [address] Performed By: #### U A #### [facility] [place] [id number] [address] [place] [address] [place] Urobilinogen Ql (U) 1+ Abnormal Negative [facility] Comment on above: Order Comment: Speci men Type: URINE SPECIMEN Ordering Facility: [facility] Address: [address] [place] [address] Performed By: #### U A #### [facility] [place] [id number] [address] [place] [address] [place] Bilirubin Ql (U) Negative Negative [facility] Clarity (Unsp spec) Clear Clear [facility] Color (U) Yellow Yellow [facility] Glucose Test strip (U) [Mass/Vol] 3+ Abnormal Trace, Negative [facility] Hemoglobin Ql (U) Negative Negative, Trace [facility] Ketones Ql (U) Trace Negative, Trace [facility] Leukocyte esterase Test strip Ql (U) Negative Negative, 25 Loraine/mL [facility] Nitrite Ql (U) Negative Negative [facility] pH (U) 5.5 [pH] 5.0 - 8.0 [facility] Protein (U) [Mass/Vol] Negative Trace , Negative [facility] Specific gravity (U) [Rel density] 1.014 1.005 - 1.030 [facility] Urobilinogen Ql (U) 1+ Abnormal Negative [facility] FK506 (TACROLIMUS) WHOLE BLO ODon 01-29-2022 Tacrolimus (FK506), Blood 11.1 ng/mL Normal 2.0-20.0 [facility] Comment on above: Result Comment: Trou gh (immediately following transplant) 15.0 . Trough (steady state, 2 weeks or more after transplant): 3.0 - 8.0 . Performed by LC-MS/MS technology. Performed By: #### F K506T ####[facility] Ysbvm[address]hr[address] [place], [place] [address]Dr. Farhat Leal PHOSPHORUSon 01-26-2022 Phosphate [Mass/Vol] 4.1 mg/dL Normal 2.6-4.7 [facility] Comment on above: Performed By: #### C CARA, PHOS ####[facility] [address] [address]DrSkylar Leal PROF 14(COMP METB)on 022 Albumin [Mass/Vol] 2.1 g/dL Critically low 3.4-5.0 [facility] Comment on above: Performed By: #### C CARA, PHOS ####[facility] [address] [place] [address]Dr. Farhat Leal Albumin/Globulin [Mass ratio] 0.6 {ratio} Normal [facility] Comment on above: Performed By: #### C CARA, PHOS ####[facility] [address]fl[address] [place] [address]Dr. Farhat Leal ALP [Catalytic activity/Vol] 89 U/L Normal 46-116 [facility] Comment on above: Performed By: #### C CARA, PHOS ####[facility] Ereenirylg[address] [place], [place] [address]Dr. Farhat Leal ALT [Catalytic activity/Vol] 27 U/L Normal 16-63 [facility] Comment on above: Performed By: #### C CARA, PHOS ####[facility] Xcp[address]jmfw[address] [place], [place] [address]Dr. Farhat Leal Anion gap [Moles/Vol] 12.3 mmol/L Normal [facility] Comment on above: Performed By: #### C MP, PHOS ####[facility] Gp[address]xqjzr[address] [place], [place] [address]Dr. Farhat Elvis AST [Catalytic activity/Vol] 53 U/L Critically high 15-37 [facility] Comment on above: Performed By: #### C CARA, PHOS ####[facility] Dperkwxvmg[address] [place], [place] [address]Dr. Farhat Leal Bilirubin [Mass/Vol] 0.6 mg/dL Normal 0.2-1.0 [facility] Comment on above: Performed By: #### C CARA, PHOS ####[facility] Descfegjtc[address] [place], [place] [address]Dr. Farhat Elvis Calcium [Mass/Vol] 8.0 mg/dL Critically low 8.5-10.1 [facility] Comment on above: Performed By: #### C CARA, PHOS ####[facility] Zfscvprwzy[address] [place], [place] [address]Dr. Farhat Leal Chloride [Moles/Vol] 97 mmol/L Critically low 98-107 [facility] Comment on above: Performed By: #### C MP, PHOS ####[facility] Bwyobxgviw[address] [place], [place] [address]Dr. Farhat Leal CO2 [Moles/Vol] 26.6 mmol/L Normal 21.0-32.0 [facility] Comment on above: Performed By: #### C CARA, PHOS ####[facility] Vdcdygseei[address] [place], [place] [address]Dr. Farhat Leal Creatinine [Mass/Vol] 1.03 mg/dL Normal 0.70-1.30 [facility] Comment on above: Performed By: #### C CARA, PHOS ####[facility] [address] [place] [address]Dr. Farhat Leal EGFR-AF KAZAKH >60 Normal >=60 [facility] Comment on above: Performed By: #### C MP, PHOS ####[facility] [address] [place] [address]Dr. Farhat Leal EGFR-NON AF KAZAKH >60 Normal >=60 [facility] Comment on above: Performed By: #### C CARA, PHOS ####[facility] Bz[address]qcvjca[address] [place], [place] [address]Dr. Farhat Leal Globulin (S) [Mass/Vol] 3.7 g/dL Normal [facility] Comment on above: Performed By: #### C CARA, PHOS ####[facility] Zlkbgivayi[address] [place], [place] [address]Dr. Farhat Leal Glucose [Mass/Vol] 287 mg/dL Critically high 74-106 T [facility] Comment on above: Performed By: #### C CARA, PHOS ####[facility] Kapkrhqyhn[address] [place], [place] [address]Dr. Farhat Leal Potassium [Moles/Vol] 3.9 mmol/L Normal 3.5-5.1 [facility] Comment on above: Performed By: #### C CARA, PHOS ####[facility] Nbnoyyaqnm[address] [place], [place] [address]Dr. Farhat Leal Protein [Mass/Vol] 5.8 g/dL Critically low 6.4-8.[address] [facility] Comment on above: Performed By: #### C CARA, PHOS ####[facility] Ghzjipkmtp[address] [place], [place] [address]Dr. Farhat Leal Sodium [Moles/Vol] 132 mmol/L Critically low 136-[address] [facility] Comment on above: Performed By: #### C CARA, PHOS ####[facility] Njbhrxcrxo[address] [place], [place] [address]Dr. Farhat Leal Urea nitrogen [Mass/Vol] 23.0 mg/dL Critically high 7.0-18.0 [facility] Comment on above: Performed By: #### C HENRI MARROQUIN ####[facility] [address] [place] [address]Dr. Farhat Leal Urea nitrogen/Creatinine [Mass ratio] 22.3 mg/mg Normal [facility] Comment on above: Performed By: #### C HENRI MARROQUIN ####[facility] [address] [place] [address]Dr. Farhat Leal FK506 (TACROLIMUS) WHOLE BLO ODon 01-21-2022 Tacrolimus (FK506), Blood 12.2 ng/mL Normal 2.0-20.0 [facility] Comment on above: Result Comment: Trou gh (immediately following transplant) 15.0 . Trough (steady state, 2 weeks or more after transplant): 3.0 - 8.0 . Performed by LC-MS/MS technology. Performed By: #### F K506T ####[facility] Xr[address]vccdps[address] [place], [place] [address]Dr. Farhat Leal ACID FAST SMEAR AND CXon Acid Fast Culture Negative Normal [facility] Comment on above: Result Comment: No a abdiel fast bacilli isolated after 6 weeks. Performed By: #### A FB ####[facility] O[address] [place], [place] [address]Dr. Farhat Leal Acid Fast Smear Negative Normal [facility] Comment on above: Performed By: #### A FB ####[facility] Jbw[address]xt[address]ca[address] [place], [place] [address]Dr. Farhat [employer] Specimen Processing Tissue Grinding Normal [facility] Comment on above: Performed By: #### A FB ####[facility] [address]wvl[address] [place], [place] [address]Dr. Farhat Hassan [facility] ALEX ALMONTE ([id number]) 1945 M TRN Date Time Provider Department [...] by mouth daily with lunch. 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 Comment on above: Performed By: #### C MP ####[facility] [address] [place] [address]DrSkylar Leal Albumin/Globulin [Mass ratio] 0.5 {ratio} Normal [facility] Comment on above: Performed By: #### C MP ####[facility] [address] [place] [address]DrSkylar Leal ALP [Catalytic activity/Vol] 78 U/L Normal 46-116 [facility] Comment on above: Performed By: #### C MP ####[facility] Rt[address]zdlsw[address] [place] [address]DrSkylar Leal ALT [Catalytic activity/Vol] 22 U/L Normal 16-63 [facility] Comment on above: Performed By: #### C MP ####[facility] [address]strgsfp[address] [place] [address]Dr. Farhat Elvis Anion gap [Moles/Vol] 8.0 mmol/L Normal [facility] Comment on above: Performed By: #### C MP ####[facility] [address] [place] [id number]. Farhat Elvis AST [Catalytic activity/Vol] 92 U/L Critically high 15-37 [facility] Comment on above: Performed By: #### C MP ####[facility] Jtditxgmnn[address] [place], [place] [address]Dr. Farhat Leal Bilirubin [Mass/Vol] 0.7 mg/dL Normal 0.2-1.0 [facility] Comment on above: Performed By: #### C MP ####[facility] Hiyrwratvv[address] [place], [place] [address]Dr. Farhat Leal Calcium [Mass/Vol] 7.8 mg/dL Critically low 8.5-10.[address] [facility] Comment on above: Performed By: #### C MP ####[facility] Zrebfcdfoz[address] [place], [place] [address]Dr. Farhat Leal Chloride [Moles/Vol] 99 mmol/L Normal 98-107 [facility] Comment on above: Performed By: #### C MP ####[facility] Zurmdiuxmo[address] [place], [place] [address]Dr. Farhat Leal CO2 [Moles/Vol] 30.9 mmol/L Normal 21.0-32.0 [facility] Comment on above: Performed By: #### C MP ####[facility] Mjclbaiyit[address] [place], [place] [address]Dr. Farhat Leal Creatinine [Mass/Vol] 0.95 mg/dL Normal 0.70-1.30 [facility] Comment on above: Performed By: #### C MP ####[facility] Xsvsvgjame[address] [place], [place] [address]Dr. Farhat Leal EGFR-AF KAZAKH >60 Normal >=60 [facility] Comment on above: Performed By: #### C MP ####[facility] [address] [place] [address]Dr. Farhat Leal EGFR-NON AF KAZAKH >60 Normal >=60 [facility] Comment on above: Performed By: #### C MP ####[facility] [address]qvkfix[address] [place] [address]Dr. Farhat Leal Globulin (S) [Mass/Vol] 3.9 g/dL Normal [facility] Comment on above: Performed By: #### C MP ####[facility] [address]ckkb[address] [place] [address]Dr. Farhat Leal Glucose [Mass/Vol] 124 mg/dL Critically high 74-106 T [facility] Comment on above: Performed By: #### C MP ####[facility] [address]pe[address]koft[address] [place] [address]Dr. Farhat Leal Potassium [Moles/Vol] 5.9 mmol/L Critically high 3.5-5.1 [facility] Comment on above: Performed By: #### C MP ####[facility] [address]em[address]cf[address]ib[address] [place] [address]Dr. Farhat Leal Protein [Mass/Vol] 5.8 g/dL Critically low 6.4-8.[address] [facility] Comment on above: Performed By: #### C MP ####[facility] Cynlkdbgiz[address] [place] [address]Dr. Farhat Leal Sodium [Moles/Vol] 132 mmol/L Critically low 136-[address] [facility] Comment on above: Performed By: #### C MP ####[facility] Uxqdzcgdzo[address] [place] [address]Dr. Farhat Leal Urea nitrogen [Mass/Vol] 18.0 mg/dL Normal 7.0-18.0 [facility] Comment on above: Performed By: #### C MP ####[facility] Xvczdnqeas9786 [place] [phone]. Farhat Elvis Urea nitrogen/Creatinine [Mass ratio] 18.9 mg/mg Normal [facility] Comment on above: Performed By: #### C MP ####[facility] Ejhbe[address]mtv28[address] [place] [phone]. Farhat Leal INR (POC)on 01-12-2022 INR Coag (PPP) [Relative time] 2.6 {INR} High 0.8 - 1.2 [facility] Internal Quality Check Acceptable Cl [facility] ACID FAST SMEAR AND CXon Acid Fast Culture Negative Normal [facility] Comment on above: Result Comment: No a abdiel fast bacilli isolated after 6 weeks. Performed By: #### A FB ####[facility] T[address]cugljy[address] [place], [place] [address]Dr. Farhat Leal Acid Fast Smear Negative Normal [facility] Comment on above: Performed By: #### A FB ####[facility] Vlvnikqogk[address] [place], [place] [address]Dr. Farhat [employer]al [employer] Specimen Processing Direct Inoculation Normal [facility] Comment on above: Performed By: #### A FB ####[facility] [address]qfs[address] [place], [place] [address]Dr. Farhat Leal ACID FAST SMEAR AND CXon Acid Fast Culture Negative Normal [facility] Comment on above: Result Comment: No a abdiel fast bacilli isolated after 6 weeks. Performed By: #### A FB ####[facility] Eshdnmcawj[address] [place], [place] [address]Dr. Farhat Leal Acid Fast Smear Negative Normal [facility] Comment on above: Performed By: #### A FB ####[facility] Kvrxpxmexn[address] [place], [place] [address]Dr. Farhat Leal [employer] Specimen Processing Tissue Grinding Normal [facility] Comment on above: Performed By: #### A FB ####[facility] Zqlgjqafjb[address] [place], [place] [address]Dr. Farhat Leal FUNGAL CULTUREon 01-02-2022 Fungus (Mycology) Culture Final report Normal [facility] Comment on above: Performed By: #### C XFUN ####[facility] Hvazzsollu[address] [place], [place] [address]Dr. Farhat Leal Fungus Stain Final report Normal [facility] Comment on above: Performed By: #### C XFUN ####[facility] [address]fr[address] [place] [address]. Farhat Leal Result 1 Comment Normal [facility] Comment on above: Result Comment: ANNI/ Calcofluor preparation: no fungus observed. Performed By: #### C XFUN ####[facility] [address] [place] [address]. Farhat Leal Result Comment: No y east or mold isolated after 4 weeks. FK506 (TACROLIMUS) WHOLE BLO ODon 12-31-2021 Tacrolimus (FK506), Blood 7.7 ng/mL Normal 2.0-20.0 [facility] Comment on above: Result Comment: Trou gh (immediately following transplant) 15.0 . Trough (steady state, 2 weeks or more after transplant): 3.0 - 8.0 . Performed by LC-MS/MS technology. Performed By: #### F K506T ####[facility] [address] [place] [address]. Farhat Leal HEMOGRAM AND PLATELon 2021 Hematocrit (Bld) [Volume fraction] 27.1 % Critically low 42.0-54.0 [facility] Comment on above: Performed By: #### H H ####[facility] [address] [place] [address]. Farhat Leal Hemoglobin (Bld) [Mass/Vol] 8.7 g/dL Critically low 14.0-18.0 [facility] Comment on above: Performed By: #### H H ####[facility] Ms[address]ys[address] [place] [address]. Farhat Leal MCH (RBC) [Entitic mass] 30.3 pg Normal 25.9-34.0 [facility] Comment on above: Performed By: #### H H ####[facility] [address] [place] [address]. Farhat Leal MCHC (RBC) [Mass/Vol] 32.1 g/dL Normal 29.9-35.2 [facility] Comment on above: Performed By: #### H H ####[facility] [address] [place] [phone]. Farhat Leal MCV (RBC) [Entitic vol] 94.4 fL Critically high 80.0-94.0 [facility] Comment on above: Performed By: #### H H ####[facility] [address]fj[address] [place] [address]Dr. Farhat Leal PLT 355 103/ul Normal 150-450 [facility] Comment on above: Performed By: #### H H ####[facility] [address]zsy[address] [place] [phone]. Farhat Leal RBC 2.87 106/ul Critically low 4.70-6.10 [facility] Comment on above: Performed By: #### H H ####[facility] [address]bun[address] [place] [address]Dr. Farhat Elvis WBC 6.0 103/ul Normal 4.0-11.0 [facility] Comment on above: Performed By: #### H H ####[facility] [address] [place] [address]Dr. Farhat Elvis PHOSPHORUSon 12-29-2021 Phosphate [Mass/Vol] 2.5 mg/dL Critically low 2.6-4.7 [facility] Comment on above: Performed By: #### P HOS, CMP ####[facility] Yobkmgdzhk[address] [place], [place] [address]Dr. Madelynlorri Leal PROF 14(COMP METB)on 022 Albumin [Mass/Vol] 1.7 g/dL Critically low 3.4-5.0 [facility] Comment on above: Performed By: #### P HOS, CMP ####[facility] L[address]zx[address]ouny[address] [place], [place] [address]Dr. Farhat Elvis Albumin/Globulin [Mass ratio] 0.5 {ratio} Normal [facility] Comment on above: Performed By: #### P HOS, CMP ####[facility] Lx[address]xlef[address] [place] [address]Dr. Farhat Leal ALP [Catalytic activity/Vol] 78 U/L Normal 46-116 [facility] Comment on above: Performed By: #### P HOS, CMP ####[facility] Ltxidjeuyt[address] [place], [place] [address]Dr. Farhat Leal ALT [Catalytic activity/Vol] 12 U/L Critically low 16-63 [facility] Comment on above: Performed By: #### P HOS, CMP ####[facility] Uzkewmujru[address] [place], [place] [address]Dr. Farhat Leal Anion gap [Moles/Vol] 5.1 mmol/L Normal [facility] Comment on above: Performed By: #### P HOS, CMP ####[facility] K[address]vwfegdg[address] [place], [place] [address]Dr. Farhat Leal AST [Catalytic activity/Vol] 22 U/L Normal 15-37 [facility] Comment on above: Performed By: #### P HOS, CMP ####[facility] Zlpnvpffux[address] [place], [place] [address]Dr. Farhat Leal Bilirubin [Mass/Vol] 0.6 mg/dL Normal 0.2-1.0 [facility] Comment on above: Performed By: #### P HOS, CMP ####[facility] Yomuuoknbs[address] [place], [place] [address]Dr. Farhat Leal Calcium [Mass/Vol] 8.1 mg/dL Critically low 8.5-10.[address] [facility] Comment on above: Performed By: #### P HOS, CMP ####[facility] Emwxlhujvj[address] [place], [place] [address]Dr. Farhat Leal Chloride [Moles/Vol] 100 mmol/L Normal 98-107 [facility] Comment on above: Performed By: #### P HOS, CMP ####[facility] Esuhsqeyeu[address] [place], [place] [address]Dr. Farhat Leal CO2 [Moles/Vol] 34.2 mmol/L Critically high 21.0-32.0 [facility] Comment on above: Performed By: #### P HOS, CMP ####[facility] Mfgbpashxs[address] [place], [place] [address]Dr. Farhat Elvis Creatinine [Mass/Vol] 0.92 mg/dL Normal 0.70-1.30 [facility] Comment on above: Performed By: #### P HOS, CMP ####[facility] [address]ryupgr[address] [place] [address]Dr. Farhat Leal EGFR-AF KAZAKH >60 Normal >=60 [facility] Comment on above: Performed By: #### P HOS, CMP ####[facility] [address]mpkvhunn[address] [place] [phone]. Farhat Elvis EGFR-NON AF KAZAKH >60 Normal >=60 [facility] Comment on above: Performed By: #### P HOS, CMP ####[facility] Cpzw[address]xkycf[address] [place] [address]Dr. Farhat Leal Globulin (S) [Mass/Vol] 3.3 g/dL Normal [facility] Comment on above: Performed By: #### P HOS, CMP ####[facility] Esymlqesyr[address] [place], [place] [address]Dr. Farhat Leal Glucose [Mass/Vol] 116 mg/dL Critically high 74-106 [facility] Comment on above: Performed By: #### P HOS, CMP ####[facility] Kfzjgtzlkz[address] [place], [place] [address]Dr. Farhat Leal Potassium [Moles/Vol] 3.3 mmol/L Critically low 3.5-5.1 [facility] Comment on above: Performed By: #### P HOS, CMP ####[facility] R[address]zz[address]jwp[address] [place], [place] [address]Dr. Madelynlorri Elvis Protein [Mass/Vol] 5.0 g/dL Critically low 6.4-8.[address] [facility] Comment on above: Performed By: #### P HOS, CMP ####[facility] Bx[address]dsffcka[address] [place], [place] [address]Dr. Farhat Leal Sodium [Moles/Vol] 136 mmol/L Normal 136-145 [facility] Comment on above: Performed By: #### P HOS, CMP ####[facility] R[address]hrbpwxfo[address] [place], [place] [address]Dr. Farhat Leal Urea nitrogen [Mass/Vol] 14.0 mg/dL Normal 7.0-18.0 [facility] Comment on above: Performed By: #### P HOS, CMP ####[facility] Orroxrdxvb[address] [place], [place] [address]DrSkylar Leal Urea nitrogen/Creatinine [Mass ratio] 15.2 mg/mg Normal [facility] Comment on above: Performed By: #### P HOS, CMP ####[facility] Twbbifslyl[address] [place], [place] [address]DrSkylar Leal PROTIMEon 12-29-2021 INR Coag (PPP) [Relative time] 1.26 {INR} Normal [facility] Comment on above: Performed By: #### P T ####[facility] Utjjaqerca[address] [place], [place] [address]DrSkylar Leal INR GUIDELINES SEE BELOW Normal [facility] Comment on above: Result Comment: MALINA RED INR: 2.0 - 3.0 CONDITIONS NOT LISTED BELOW 2.5 - 3.5 FOR PROSTHETIC HEART VALVE REPLACEMENT 2.5 - 3.5 RECURRENT THROMBOSIS Performed By: #### P T ####[facility] Qzuhq[address]zcs[address] [place], [place] [address]DrSkylar Leal PT Coag (PPP) [Time] 13.4 s Critically high 9.0-11.6 [facility] Comment on above: Performed By: #### P T ####[facility] Rclspaaqrg[address] [place], [place] [address]DrSkylar Leal XR MODIFIED BARIUM SWALLOWon 12-25-2021 XR MODIFIED BARIUM SWALLOW Normal [facility] FUNGAL CULTUREon 12-24-2021 Fungus (Mycology) Culture Final report Normal [facility] Comment on above: Performed By: #### C XFUN ####[facility] Ggqmvpqadk[address] [place], [place] [address]DrSkylar Leal Fungus Stain Final report Normal [facility] Comment on above: Performed By: #### C XFUN ####[facility] Tpaqwzaaly[address] [place], [place] [address]DrSkylar Leal Result 1 Comment Normal [facility] Comment on above: Result Comment: ANNI/ Calcofluor preparation: no fungus observed. Performed By: #### C XFUN ####[facility] Athviplyah[address] [place] [address]Dr. Farhat Leal Result Comment: No y east or mold isolated after 4 weeks. VANCOMYCIN TROUGHon 12-21-19 VANCOMYCIN TROUGH 14.4 ug/ml Normal 5.0-20.0 [facility] Comment on above: Performed By: #### V ANCT ####[facility] Jfjkapjprd[address] [place], [place] [address]Dr. Farhat Leal CBC AUTO DIFFon 12-14-2021 BASO # 0.0 103/ul Normal 0.0-0.1 [facility] Comment on above: Performed By: #### C BC ####[facility] Qekbmxqsnf[address] [place], [place] [address]Dr. Madelynlorri Leal Basophils/100 WBC (Bld) 0.2 % Normal 0.2-2.0 [facility] Comment on above: Performed By: #### C BC ####[facility] Yixrrnynpg[address] [place], [place] [address]Dr. Farhat Elvis EO # 0.2 103/ul Normal 0.0-0.7 [facility] Comment on above: Performed By: #### C BC ####[facility] Vzbdsknvdm[address] [place], [place] [address]Dr. Farhat Elvis Eosinophils/100 WBC (Bld) 2.1 % Normal 0.9-7.0 [facility] Comment on above: Performed By: #### C BC ####[facility] Yqygrcrttv[address] [place], [place] [address]Dr. Farhat Leal Erythrocyte distribution width (RBC) [Ratio] 18.2 % Critically high 11.0-15.0 [facility] Comment on above: Performed By: #### C BC ####[facility] Nzjdqrgimb[address] [place], [place] [address]Dr. Farhat Leal Hematocrit (Bld) [Volume fraction] 25.8 % Critically low 42.0-54.0 [facility] Comment on above: Performed By: #### C BC ####[facility] [address]ctm[address] [place] [id number]. Farhat Leal Hemoglobin (Bld) [Mass/Vol] 8.0 g/dL Critically low 14.0-18.0 [facility] Comment on above: Performed By: #### C BC ####[facility] Quvgcozbfp[address] [place] [address]Dr. Farhat Leal IG # 0.08 10e3/ul Critically high 0.00-0.03 [facility] Comment on above: Performed By: #### C BC ####[facility] Iannwcdtfj[address] [place] [id number]. Farhat Leal IG % 0.7 % Critically high 0.0-0.5 [facility] Comment on above: Performed By: #### C BC ####[facility] Dftrftglul7[address] [place], [place] [address]Dr. Farhat Leal LYMPH # 0.9 103/ul Critically low 1.2-3.8 [facility] Comment on above: Performed By: #### C BC ####[facility] Mgkjeluxal[address] [place] [address]Dr. Farhat Leal Lymphocytes/100 WBC (Bld) 8.7 % Critically low 20.5-60.0 [facility] Comment on above: Performed By: #### C BC ####[facility] Hoccazquoq[address] [place] [address]Dr. Farhat Leal MANUAL DIFF REQ NO Normal [facility] Comment on above: Performed By: #### C BC ####[facility] Hvrbphdksg8[address] [place], [place] [address]Dr. Farhat Leal MCH (RBC) [Entitic mass] 30.0 pg Normal 25.9-34.0 [facility] Comment on above: Performed By: #### C BC ####[facility] Chhamzottz69[address] [place], [place] [address]Dr. Farhat Leal MCHC (RBC) [Mass/Vol] 31.0 g/dL Normal 29.9-35.2 [facility] Comment on above: Performed By: #### C BC ####[facility] Qhpnnbxdaw0052 [place] [id number]. Farhat Leal MCV (RBC) [Entitic vol] 96.6 fL Critically high 80.0-94.0 [facility] Comment on above: Performed By: #### C BC ####[facility] Ljeoprgaye[address] [place] [id number]. Farhat Leal MONO # 0.7 103/ul Normal 0.3-0.8 [facility] Comment on above: Performed By: #### C BC ####[facility] Wnxjuoxzfe[address] [place], [place] [address]Dr. Farhat Leal Monocytes/100 WBC (Bld) 6.7 % Normal 1.7-12.0 [facility] Comment on above: Performed By: #### C BC ####[facility] Fnwthwoljl14[address] [place], [place] [address]Dr. Farhat Leal NEUT # 8.8 103/ul Critically high 1.4-6.5 [facility] Comment on above: Performed By: #### C BC ####[facility] Vdgzdkqdyy9[address] [place], [place] [address]Dr. Farhat Leal Neutrophils/100 WBC (Bld) 81.6 % Critically high 43.0-75.0 [facility] Comment on above: Performed By: #### C BC ####[facility] Gysrrhvvug14[address] [place], [place] [address]Dr. Farhat Leal Platelet mean volume (Bld) [Entitic vol] 10.5 fL Normal 9.5-13.5 [facility] Comment on above: Performed By: #### C BC ####[facility] Homlbcqmul6[address] [place], [place] [address]Dr. Farhat Leal PLT 285 103/ul Normal 150-450 [facility] Comment on above: Performed By: #### C BC ####[facility] Nbmiqdscdg[address] [place], [place] [address]Dr. Farhat Leal RBC 2.67 106/ul Critically low 4.70-6.10 [facility] Comment on above: Performed By: #### C BC ####[facility] Pysoqyuecy[address] [place] [id number]. Farhat Elvis WBC 10.7 103/ul Normal 4.0-11.0 [facility] Comment on above: Performed By: #### C BC ####[facility] Bdqkaldtth65[address] [place] [phone]. Madelynlorri Leal PROF CHEM 8 (BAS METB)on Anion gap [Moles/Vol] 12.4 mmol/L Normal [facility] Comment on above: Performed By: #### B MP ####[facility] Dz[address]whwsmi[address] [place] [address]Dr. Farhat Leal Calcium [Mass/Vol] 7.8 mg/dL Critically low 8.5-10.1 [facility] Comment on above: Performed By: #### B MP ####[facility] Jinfrunoyu[address] [place], [place] [address]Dr. Farhat Leal Chloride [Moles/Vol] 102 mmol/L Normal 98-107 [facility] Comment on above: Performed By: #### B MP ####[facility] Pqmnizrlcp[address] [place], [place] [address]Dr. Madelynlorri Leal CO2 [Moles/Vol] 28.1 mmol/L Normal 21.0-32.0 [facility] Comment on above: Performed By: #### B MP ####[facility] Jwubabqgle998[address] [place], [place] [address]Dr. Farhat Leal Creatinine [Mass/Vol] 1.24 mg/dL Normal 0.70-1.30 [facility] Comment on above: Performed By: #### B MP ####[facility] [address]ypo[address] [place] [address]Dr. Farhat Leal EGFR-AF KAZAKH >60 Normal >=60 [facility] Comment on above: Performed By: #### B MP ####[facility] Zwivdop[address] [place] [id number]. Farhat Leal EGFR-NON AF KAZAKH 57 mL/min/1.73m2 Critically low >=60 [facility] Comment on above: Performed By: #### B MP ####[facility] Z[address]qqcuqbh[address] [place] [address]Dr. Farhat Leal Glucose [Mass/Vol] 296 mg/dL Critically high 74-106 T [facility] Comment on above: Performed By: #### B MP ####[facility] K[address]yrpiuvkn[address] [place] [address]Dr. Farhat Leal Potassium [Moles/Vol] 3.5 mmol/L Normal 3.5-5.1 [facility] Comment on above: Performed By: #### B MP ####[facility] Xqotimvusx[address] [place], [place] [address]Dr. Farhat Leal Sodium [Moles/Vol] 139 mmol/L Normal 136-145 [facility] Comment on above: Performed By: #### B MP ####[facility] Ksd[address]ikpoox[address] [place], [place] [address]Dr. Farhat Leal Urea nitrogen [Mass/Vol] 27.0 mg/dL Critically high 7.0-18.0 [facility] Comment on above: Performed By: #### B MP ####[facility] Zcmhqjxagu[address] [place], [place] [address]Dr. Farhat Leal Urea nitrogen/Creatinine [Mass ratio] 21.8 mg/mg Normal [facility] Comment on above: Performed By: #### B MP ####[facility] Mvkwstcfep[address] [place], [place] [address]Dr. Farhat Leal PROTIMEon 12-14-2021 INR Coag (PPP) [Relative time] 3.36 {INR} Normal [facility] Comment on above: Performed By: #### P T ####[facility] Eunsfqffbv[address] [place], [place] [address]Dr. Farhat Leal INR GUIDELINES SEE BELOW Normal [facility] Comment on above: Result Comment: MALINA RED INR: 2.0 - 3.0 CONDITIONS NOT LISTED BELOW 2.5 - 3.5 FOR PROSTHETIC HEART VALVE REPLACEMENT 2.5 - 3.5 RECURRENT THROMBOSIS Performed By: #### P T ####[facility] W[address]rcftbgt[address] [place], [place] [address]DrSkylar Leal PT Coag (PPP) [Time] 33.5 s Critically high 9.0-11.6 [facility] Comment on above: Performed By: #### P T ####[facility] [address]18[address] [place], [place] [address]KiSkylar Joshilorri Elvis XR CHEST 1 Von 12-14-2021 XR CHEST 1 V Normal [facility] No Panel Informationon 12-01 BLANK _ [facility] Implant Date 04/22/2012 [facility] CHECKon AMS Duration (ms) 5 of 8 [facility] AMS Fallback Rate (bpm) DDIR [facility] AV Delay Adaptive Paced Minimum (ms) 300 ms [facility] AV Delay Adaptive Rate Maximum (bpm) 130 {beats}/min [facility] AV Delay Adaptive Rate Minimum (bpm) 70 {beats}/min [facility] AV Delay Adaptive Sensed Minimum (ms) 300 ms [facility] AV Delay Paced (ms) 300 ms [facility] AV Delay Sensed (ms) 300 ms [facility] Jaciel LV Pacing Polarity Unknown [facility] Jaciel LV Sensing Polarity Unknown [facility] Jaciel RA Pacing Amplitude (volts) 2.4 V [facility] Jaciel RA Pacing Polarity BI [facility] Jaciel RA Pacing Pulse Width (ms) 0.4 ms [facility] Jaciel RA Sensing Amplitude (mvolts) AUTO [facility] Jaciel RA Sensing Blanking Period (ms) 56 ms [facility] Jaciel RA Sensing Polarity BI [facility] Jaciel RA Sensing Refractory Period (ms) AUTO [facility] Jaciel RV Pacing Amplitude (volts) 3.4 V [facility] Jaciel RV Pacing Polarity BI [facility] Jaciel RV Pacing Pulse Width (ms) 0.4 ms [facility] Jaciel RV Sensing Amplitude (mvolts) AUTO [facility] Jaciel RV Sensing Blanking Period (ms) 30 ms [facility] Jaciel RV Sensing Polarity BI [facility] Jaciel RV Sensing Refractory Period (ms) 250 ms [facility] Hysteresis Rate (bpm) 60 {beats}/min [facility] Lead1 Mfg SUZETTE [facility] Lead2 Mfg SUZETTE [facility] Location RA [facility] Location RV [facility] Lower Rate (bpm) 60 {beats}/min [facility] Max Sensor Rate (bmp) 130 {beats}/min [facility] Model [id number] oMnika Dominguez [facility] Model [id number] [facility] Model 837678 [facility] Pac[facility] Dependent? NO [facility] PM-Device Mfg BIO [facility] PM-PMT Intervention ON [facility] PM-PVC Intervention ON [facility] PM-Rate Modulation Acceleration Reaction 4 s [facility] PM-Rate Modulation Deceleration 0.5 m [facility] PM-Rate Modulation [facility] 23 [facility] PM-Rate Modulation Threshold Medium [facility] RA Bipolar Impedance ohms 448 ohm [facility] Rhythm AF with controlled ventricular rate. [facility] RV Bipolar Impedance ohms 390 ohm [facility] Serial Number [id number] [facility] Serial Number [id number] [facility] Serial Number [id number] [facility] Thresh RA Sensing Amplitude (mvolts) 2.4 mV [facility] Thresh RV Capture Amplitude (volts) 1.8 V [facility] Thresh RV Capture Duration (ms) 0.4 ms [facility] Thresh RV Sensing Amplitude (mvolts) 2.4 mV [facility] Tracking Rate (bpm) 160 {beats}/min [facility] BNPon 11-28-2021 Natriuretic peptide B (Bld) [Mass/Vol] 07697.0 pg/mL Critically high <=1,800.0 [facility] Comment on above: Performed By: #### C MP, BNP, CRP ####[facility] Rnedpbyswz[address] [place], [place] [address]Dr. Faraht Leal CBC AUTO DIFFon 11-28-2021 BASO # 0.0 103/ul Normal 0.0-0.1 [facility] Comment on above: Performed By: #### C BC ####[facility] A[address]qlqiolj[address] [place] [address]Dr. Farhat Leal Basophils/100 WBC (Bld) 0.3 % Normal 0.2-2.0 [facility] Comment on above: Performed By: #### C BC ####[facility] Xfycopnmzb[address] [place], [place] [address]Dr. Farhat Leal EO # 0.1 103/ul Normal 0.0-0.7 [facility] Comment on above: Performed By: #### C BC ####[facility] Bfzdatwmfm[address] [place], [place] [address]Dr. Farhat Leal Eosinophils/100 WBC (Bld) 1.0 % Normal 0.9-7.0 [facility] Comment on above: Performed By: #### C BC ####[facility] Wybwrbvxwq[address] [place] [address]Dr. Farhat Leal Erythrocyte distribution width (RBC) [Ratio] 14.0 % Normal 11.0-15.0 [facility] Comment on above: Performed By: #### C BC ####[facility] Pmvvpfaqim[address] [place], [place] [address]Dr. Farhat Leal Hematocrit (Bld) [Volume fraction] 27.6 % Critically low 42.0-54.0 [facility] Comment on above: Performed By: #### C BC ####[facility] Pladozvtrl[address] [place], [place] [address]Dr. Farhat Leal Hemoglobin (Bld) [Mass/Vol] 9.0 g/dL Critically low 14.0-18.0 [facility] Comment on above: Performed By: #### C BC ####[facility] Vwygbbnwvf[address] [place], [place] [address]Dr. Farhat Leal IG # 0.12 10e3/ul Critically high 0.00-0.03 [facility] Comment on above: Performed By: #### C BC ####[facility] Yhqfxtlxzo[address] [place], [place] [address]Dr. Farhat Leal IG % 1.0 % Critically high 0.0-0.5 [facility] Comment on above: Performed By: #### C BC ####[facility] Tlfqfypqwr[address] [place], [place] [address]Dr. Farhat Leal LYMPH # 1.2 103/ul Normal 1.2-3.8 [facility] Comment on above: Performed By: #### C BC ####[facility] Hldljapoxc[address] [place], [place] [address]Dr. Farhat Leal Lymphocytes/100 WBC (Bld) 9.9 % Critically low 20.5-60.0 [facility] Comment on above: Performed By: #### C BC ####[facility] Rvaoxuynnp[address] [place] [id number]. Farhat Leal MANUAL DIFF REQ NO Normal [facility] Comment on above: Performed By: #### C BC ####[facility] Lbxanpvokq6130 [place] [phone]. Farhat Leal MCH (RBC) [Entitic mass] 30.0 pg Normal 25.9-34.0 [facility] Comment on above: Performed By: #### C BC ####[facility] Qoxvfqjfsr[address] [place] [address]Dr. Farhat Leal MCHC (RBC) [Mass/Vol] 32.6 g/dL Normal 29.9-35.2 [facility] Comment on above: Performed By: #### C BC ####[facility] Cgmadbmbtu[address] [place] [address]Dr. Farhat Leal MCV (RBC) [Entitic vol] 92.0 fL Normal 80.0-94.0 [facility] Comment on above: Performed By: #### C BC ####[facility] Qsashfpcre1777 [place] [phone]. Farhat Elvis MONO # 1.1 103/ul Critically high 0.3-0.8 [facility] Comment on above: Performed By: #### C BC ####[facility] Vgunphumau[address]659 [place] [address]Dr. Madelynlorri Leal Monocytes/100 WBC (Bld) 9.3 % Normal 1.7-12.0 [facility] Comment on above: Performed By: #### C BC ####[facility] Ierspsqrmv[address]41 [place] [address]Dr. Farhat Leal NEUT # 9.3 103/ul Critically high 1.4-6.5 [facility] Comment on above: Performed By: #### C BC ####[facility] Hddediagwi7781 [place] [address]Dr. Farhat Leal Neutrophils/100 WBC (Bld) 78.5 % Critically high 43.0-75.0 [facility] Comment on above: Performed By: #### C BC ####[facility] Okdhwapfay5[address] [place] [phone]. Farhat Leal Platelet mean volume (Bld) [Entitic vol] 9.6 fL Normal 9.5-13.5 [facility] Comment on above: Performed By: #### C BC ####[facility] Drazljkbvq1716 [place] [id number]. Farhat Leal PLT 357 103/ul Normal 150-450 [facility] Comment on above: Performed By: #### C BC ####[facility] Ptagttuzaz4252 [place] [address]Dr. Farhat Leal RBC 3.00 106/ul Critically low 4.70-6.10 [facility] Comment on above: Performed By: #### C BC ####[facility] Udqnvttidt3802 [place] [phone]. Farhat Leal WBC 11.8 103/ul Critically high 4.0-11.0 [facility] Comment on above: Performed By: #### C BC ####[facility] Hkxaunmmam[address] [place], [place] [address]Dr. Farhat Lela CRPon 11-28-2021 CRP 20.9 mg/dL Critically high <=1.0 [facility] Comment on above: Performed By: #### C MP, BNP, CRP ####[facility] Ndudeeiaye[address] [place] [phone]. Farhat Leal CULTURE OTHERon 11-28-2021 CULTURE OTHER Normal [facility] Comment on above: Performed By: #### O THCX ####[facility] Usvluvxhtb6908 [place] [phone]. Farhat Leal CULTURE OTHER Normal [facility] Comment on above: Performed By: #### O THCX ####[facility] Rbqgeivkqj[address] [place], [place] [address]Dr. Farhat Leal PROF 14(COMP METB)on 022 Albumin [Mass/Vol] 1.4 g/dL Critically low 3.4-5.[address] [facility] Comment on above: Performed By: #### C MP, BNP, CRP ####[facility] Ncjbrhlvkr20[address] [place] [address]Dr. Farhat Leal Albumin/Globulin [Mass ratio] 0.4 {ratio} Normal [facility] Comment on above: Performed By: #### C MP, BNP, CRP ####[facility] Xvbkjgecrh[address] [place] [address]Dr. Farhat Leal ALP [Catalytic activity/Vol] 82 U/L Normal 46-116 [facility] Comment on above: Performed By: #### C MP, BNP, CRP ####[facility] Gqscovkfds6[address] [place] [address]Dr. Farhat Leal ALT [Catalytic activity/Vol] 20 U/L Normal 16-63 [facility] Comment on above: Performed By: #### C MP, BNP, CRP ####[facility] Zhmrfmkozb[address] [place], [place] [address]Dr. Farhat Leal Anion gap [Moles/Vol] 13.0 mmol/L Normal [facility] Comment on above: Performed By: #### C MP, BNP, CRP ####[facility] Sgwlcxersa8[address] [place], [place] [address]Dr. Farhat Leal AST [Catalytic activity/Vol] 33 U/L Normal 15-37 [facility] Comment on above: Performed By: #### C MP, BNP, CRP ####[facility] Syxgknwlwb9[address] [place], [place] [address]Dr. Farhat Leal Bilirubin [Mass/Vol] 0.7 mg/dL Normal 0.2-1.0 [facility] Comment on above: Performed By: #### C MP, BNP, CRP ####[facility] Cgmmehsmpw85[address] [place], [place] [address]Dr. Farhat Leal Calcium [Mass/Vol] 8.4 mg/dL Critically low 8.5-10.1 [facility] Comment on above: Performed By: #### C MP, BNP, CRP ####[facility] Warzvikdpa8[address] [place], [place] [address]Dr. Farhat Leal Chloride [Moles/Vol] 100 mmol/L Normal 98-107 [facility] Comment on above: Performed By: #### C MP, BNP, CRP ####[facility] Fynubggumq[address] [place] [address]Dr. Farhat Leal CO2 [Moles/Vol] 23.7 mmol/L Normal 21.0-32.0 [facility] Comment on above: Performed By: #### C MP, BNP, CRP ####[facility] Rrputhdqsr78[address] [place] [address]Dr. Farhat Leal Creatinine [Mass/Vol] 1.70 mg/dL Critically high 0.70-1.30 [facility] Comment on above: Performed By: #### C MP, BNP, CRP ####[facility] Jpvsaibziv[address] [place], [place] [address]Dr. Farhat Leal EGFR-AF KAZAKH 48 mL/min/1.73m2 Critically low >=60 [facility] Comment on above: Performed By: #### C MP, BNP, CRP ####[facility] Uzheyevjeg[address] [place], [place] [address]Dr. Farhat Leal EGFR-NON AF KAZAKH 39 mL/min/1.73m2 Critically low >=60 [facility] Comment on above: Performed By: #### C MP, BNP, CRP ####[facility] Cekgaqekzq[address] [place], [place] [address]Dr. Farhat Leal Globulin (S) [Mass/Vol] 3.6 g/dL Normal [facility] Comment on above: Performed By: #### C MP, BNP, CRP ####[facility] Jdekcbdamn5025 [place] [address]Dr. Farhat Leal Glucose [Mass/Vol] 232 mg/dL Critically high 74-106 T [facility] Comment on above: Performed By: #### C MP, BNP, CRP ####[facility] Azczhogfxz[address] [place], [place] [address]Dr. Farhat Leal Potassium [Moles/Vol] 3.7 mmol/L Normal 3.5-5.1 [facility] Comment on above: Performed By: #### C MP, BNP, CRP ####[facility] Pwfrwsxpjp7277 [place] [address]Dr. Farhat Leal Protein [Mass/Vol] 5.0 g/dL Critically low 6.4-8.[address] [facility] Comment on above: Performed By: #### C MP, BNP, CRP ####[facility] Akwydqilfc[address] [place] [address]Dr. Farhat Leal Sodium [Moles/Vol] 133 mmol/L Critically low 136-[address] [facility] Comment on above: Performed By: #### C MP, BNP, CRP ####[facility] Eewwocyhys[address] [place] [address]Dr. Farhat Leal Urea nitrogen [Mass/Vol] 52.0 mg/dL Critically high 7.0-18.0 [facility] Comment on above: Performed By: #### C MP, BNP, CRP ####[facility] Znzyxw[address]zg[address] [place], [place] [address]Dr. Farhat Leal Urea nitrogen/Creatinine [Mass ratio] 30.6 mg/mg Normal [facility] Comment on above: Performed By: #### C MP, BNP, CRP ####[facility] Sqwkvrgjxl57[address] [place] [address]Dr. Farhat Leal PROTIMEon 11-28-2021 INR Coag (PPP) [Relative time] 1.29 {INR} Normal [facility] Comment on above: Performed By: #### P T ####[facility] Jkldvuyomh499715 [address] [place], [place] [address]Dr. Farhat Leal INR GUIDELINES SEE BELOW Normal [facility] Comment on above: Result Comment: MALINA RED INR: 2.0 - 3.0 CONDITIONS NOT LISTED BELOW 2.5 - 3.5 FOR PROSTHETIC HEART VALVE REPLACEMENT 2.5 - 3.5 RECURRENT THROMBOSIS Performed By: #### P T ####[facility] Enjwh[address]dozq[address] [place], [place] [address]Dr. Farhat Leal PT Coag (PPP) [Time] 13.7 s Critically high 9.0-11.6 [facility] Comment on above: Performed By: #### P T ####[facility] Njwsphpprl[address] [place], [place] [address]Dr. Farhat Leal SED RATE WESTERGRENon 2021 SED RATE 77 mm/hr Critically high <=20 [facility] Comment on above: Performed By: #### S EDR ####[facility] Dtdtpyyanr[address] [place], [place] [address]Dr. Farhat Leal XR CHEST 2 Von 11-28-2021 XR CHEST 2 V Normal [facility] BNPon 11-27-2021 Natriuretic peptide B (Bld) [Mass/Vol] 65467.0 pg/mL Critically high <=1,800.0 The [facility] Comment on above: Performed By: #### B WIRE INSPECTOR, CMP, CRP ####[facility] Gungahmpkr[address] [place], [place] [address]Dr. Farhat Leal CBC AUTO DIFFon 11-27-2021 BASO # 0.0 103/ul Normal 0.0-0.1 [facility] Comment on above: Performed By: #### C BC ####[facility] Egpqzisquj[address] [place], [place] [address]Dr. Farhat Leal Basophils/100 WBC (Bld) 0.2 % Normal 0.2-2.0 The [facility] Comment on above: Performed By: #### C BC ####[facility] Jmgvgxmsxv[address] [place], [place] [address]Dr. Farhat Leal EO # 0.2 103/ul Normal 0.0-0.7 [facility] Comment on above: Performed By: #### C BC ####[facility] Ugqhdmebpb[address] [place], [place] [address]Dr. Farhat Leal Eosinophils/100 WBC (Bld) 1.9 % Normal 0.9-7.0 The [facility] Comment on above: Performed By: #### C BC ####[facility] Aamzxzirle[address] [place], [place] [address]Dr. Farhat Leal Erythrocyte distribution width (RBC) [Ratio] 13.9 % Normal 11.0-15.0 The [facility] Comment on above: Performed By: #### C BC ####[facility] Nlmyslpxxe[address] [place], [place] [address]DrSkylar Leal Hematocrit (Bld) [Volume fraction] 28.7 % Critically low 42.0-54.0 The [facility] Comment on above: Performed By: #### C BC ####[facility] Pffktljrxa48[address] [place] [address]DrSkylar Leal Hemoglobin (Bld) [Mass/Vol] 9.3 g/dL Critically low 14.0-18.0 The [facility] Comment on above: Performed By: #### C BC ####[facility] Ofpemmzsco[address]8 [place] [address]DrSkylar Leal IG # 0.14 10e3/ul Critically high 0.00-0.03 [facility] Comment on above: Performed By: #### C BC ####[facility] Uzayvmojro3265 [place] [address]DrSkylar Leal IG % 1.2 % Critically high 0.0-0.5 [facility] Comment on above: Performed By: #### C BC ####[facility] Eaefvviwgy[address] [place], [place] [address]DrSkylar Leal LYMPH # 1.1 103/ul Critically low 1.2-3.8 [facility] Comment on above: Performed By: #### C BC ####[facility] Wmlswmhxuc9648 [place] [address]DrSkylar Leal Lymphocytes/100 WBC (Bld) 9.4 % Critically low 20.5-60.0 The [facility] Comment on above: Performed By: #### C BC ####[facility] Flopfjxzht[address] [place] [address]DrSkylar Leal MANUAL DIFF REQ NO Normal [facility] Comment on above: Performed By: #### C BC ####[facility] Oarsoesilz[address] [place], [place] [address]DrSkylar Leal MCH (RBC) [Entitic mass] 29.7 pg Normal 25.9-34.0 The [facility] Comment on above: Performed By: #### C BC ####[facility] Vlrlbwgwzu0[address] [place], [place] [address]DrSkylar Leal MCHC (RBC) [Mass/Vol] 32.4 g/dL Normal 29.9-35.2 The [facility] Comment on above: Performed By: #### C BC ####[facility] Vqrcqtnlxk16[address] [place] [id number]. Farhat Leal MCV (RBC) [Entitic vol] 91.7 fL Normal 80.0-94.0 The [facility] Comment on above: Performed By: #### C BC ####[facility] Ruuzbrtnqk17[address] [place] [address]Dr. Farhat Elvis MONO # 1.1 103/ul Critically high 0.3-0.8 [facility] Comment on above: Performed By: #### C BC ####[facility] Lihnufjuqd3650 [place] [address]Dr. Madelynlorri Leal Monocytes/100 WBC (Bld) 9.7 % Normal 1.7-12.0 The [facility] Comment on above: Performed By: #### C BC ####[facility] Chjtkczthd[address] [place], [place] [address]Dr. Farhat Leal NEUT # 9.2 103/ul Critically high 1.4-6.5 [facility] Comment on above: Performed By: #### C BC ####[facility] Wtiptwogyj60[address] [place], [place] [address]Dr. Farhat Elvis Neutrophils/100 WBC (Bld) 77.6 % Critically high 43.0-75.0 The [facility] Comment on above: Performed By: #### C BC ####[facility] Vhumhpecyb6[address] [place] [address]Dr. Farhat Elvis Platelet mean volume (Bld) [Entitic vol] 9.5 fL Normal 9.5-13.5 The [facility] Comment on above: Performed By: #### C BC ####[facility] Cpmunawjfm3446 [place] [address]Dr. Madelynlorri Elvis PLT 375 103/ul Normal 150-450 The [facility] Comment on above: Performed By: #### C BC ####[facility] Bxudeoeyno26[address] [place] [address]Dr. Farhat Leal RBC 3.13 106/ul Critically low 4.70-6.10 [facility] Comment on above: Performed By: #### C BC ####[facility] Mloscahvrt[address] [place] [id number]. Farhat Leal WBC 11.8 103/ul Critically high 4.0-11.0 [facility] Comment on above: Performed By: #### C BC ####[facility] Xuwxxinsos2534 [place] [address]Dr. Farhat Leal CRPon 11-27-2021 CRP 24.5 mg/dL Critically high <=1.0 [facility] Comment on above: Performed By: #### B WIRE INSPECTOR, CMP, CRP ####[facility] Ylmfppkhiu35[address] [place] [address]Dr. Farhat Leal CULTURE OTHERon 11-27-2021 CULTURE OTHER Normal [facility] Comment on above: Performed By: #### O THCX ####[facility] Ccnxpdxybv6165 [place] [address]Dr. Farhat Leal CULTURE OTHER Normal [facility] Comment on above: Performed By: #### O THCX ####[facility] Lvpyybxpjg0695 [place] [address]Dr. Farhat Leal CULTURE WOUNDon 11-27-2021 CULTURE WOUND Normal [facility] Comment on above: Performed By: #### W OUNDCX ####[facility] Uykwpppdgd3285 [place] [address]Dr. Farhat Leal POINT OF CARE GLUCOSEon 11-15 Glucose [Mass/Vol] 147 mg/dL Critically high 74-106 [facility] Comment on above: Performed By: #### P OCGLUC ####[facility] Wugmjozsvr8[address] [place] [address]Dr. Farhat Leal PROF 14(COMP METB)on 022 Albumin [Mass/Vol] 1.4 g/dL Critically low 3.4-5.0 [facility] Comment on above: Performed By: #### B WIRE INSPECTOR, CMP, CRP ####[facility] Kykibgfavs26[address] [place] [address]Dr. Farhat Leal Albumin/Globulin [Mass ratio] 0.4 {ratio} Normal [facility] Comment on above: Performed By: #### B WIRE INSPECTOR, CMP, CRP ####[facility] Koqviftdcg6926 [place] [address]Dr. Farhat Leal ALP [Catalytic activity/Vol] 82 U/L Normal 46-116 [facility] Comment on above: Performed By: #### B WIRE INSPECTOR, CMP, CRP ####[facility] Odmhpbsgdn5454 [place] [address]Dr. Farhat Leal ALT [Catalytic activity/Vol] 22 U/L Normal 16-63 [facility] Comment on above: Performed By: #### B WIRE INSPECTOR, CMP, CRP ####[facility] Yzxitqimyr54[address] [place] [address]Dr. Farhat Leal Anion gap [Moles/Vol] 14.2 mmol/L Normal [facility] Comment on above: Performed By: #### B WIRE INSPECTOR, CMP, CRP ####[facility] Rvqfhxjinn00[address] [place], [place] [address]Dr. Farhat Leal AST [Catalytic activity/Vol] 35 U/L Normal 15-37 [facility] Comment on above: Performed By: #### B WIRE INSPECTOR, CMP, CRP ####[facility] Zzqercutmk3[address] [place], [place] [address]Dr. Farhat Leal Bilirubin [Mass/Vol] 0.7 mg/dL Normal 0.2-1.0 [facility] Comment on above: Performed By: #### B WIRE INSPECTOR, CMP, CRP ####[facility] Apwsmwmoyw[address] [place], [place] [address]Dr. Farhat Leal Calcium [Mass/Vol] 8.2 mg/dL Critically low 8.5-10.1 [facility] Comment on above: Performed By: #### B WIRE INSPECTOR, CMP, CRP ####[facility] Kgqsqtjhvf3[address] [place], [place] [address]Dr. Farhat Leal Chloride [Moles/Vol] 99 mmol/L Normal 98-107 [facility] Comment on above: Performed By: #### B WIRE INSPECTOR, CMP, CRP ####[facility] Vdunsyikyt1281 [place] [address]Dr. Farhat Leal CO2 [Moles/Vol] 22.6 mmol/L Normal 21.0-32.0 [facility] Comment on above: Performed By: #### B WIRE INSPECTOR, CMP, CRP ####[facility] Eharipfusb3546 [place] [address]Dr. Farhat Leal Creatinine [Mass/Vol] 1.73 mg/dL Critically high 0.70-1.30 [facility] Comment on above: Performed By: #### B WIRE INSPECTOR, CMP, CRP ####[facility] Wjchjsgsdz[address] [place], [place] [address]Dr. Farhat Leal EGFR-AF KAZAKH 47 mL/min/1.73m2 Critically low >=60 [facility] Comment on above: Performed By: #### B WIRE INSPECTOR, CMP, CRP ####[facility] Clwhjoqbrg5546[address] [place], [place] [address]Dr. Farhat Leal EGFR-NON AF KAZAKH 38 mL/min/1.73m2 Critically low >=60 [facility] Comment on above: Performed By: #### B WIRE INSPECTOR, CMP, CRP ####[facility] Hmibccfcpy8[address] [place], [place] [address]Dr. Farhat Leal Globulin (S) [Mass/Vol] 3.7 g/dL Normal [facility] Comment on above: Performed By: #### B WIRE INSPECTOR, CMP, CRP ####[facility] Kqpgikqulc9381 [place] [address]Dr. Farhat Leal Glucose [Mass/Vol] 220 mg/dL Critically high 74-106 T [facility] Comment on above: Performed By: #### B WIRE INSPECTOR, CMP, CRP ####[facility] Bzihbikvpc[address] [place], [place] [address]Dr. Farhat Leal Potassium [Moles/Vol] 3.8 mmol/L Normal 3.5-5.1 [facility] Comment on above: Performed By: #### B WIRE INSPECTOR, CMP, CRP ####[facility] Zwiujghcil50[address] [place], [place] [address]Dr. Farhat Leal Protein [Mass/Vol] 5.1 g/dL Critically low 6.4-8.[address] [facility] Comment on above: Performed By: #### B WIRE INSPECTOR, CMP, CRP ####[facility] Dtafiawdfd25[address] [place] [address]Dr. Farhat Leal Sodium [Moles/Vol] 132 mmol/L Critically low 136-[address] [facility] Comment on above: Performed By: #### B WIRE INSPECTOR, CMP, CRP ####[facility] Ccrmoncjev0190 [place] [address]Dr. Farhat Leal Urea nitrogen [Mass/Vol] 49.0 mg/dL Critically high 7.0-18.0 [facility] Comment on above: Performed By: #### B WIRE INSPECTOR, CMP, CRP ####[facility] Vtdmxxqxkg3204 [place] [address]Dr. Farhat Leal Urea nitrogen/Creatinine [Mass ratio] 28.3 mg/mg Normal [facility] Comment on above: Performed By: #### B WIRE INSPECTOR, CMP, CRP ####[facility] Ywhwtpusda8823 [place] [address]Dr. Farhat Leal PROTIMEon 11-27-2021 INR Coag (PPP) [Relative time] 1.25 {INR} Normal [facility] Comment on above: Performed By: #### P T ####[facility] Iagcuhefry74[address] [place] [address]Dr. Farhat Leal INR GUIDELINES SEE BELOW Normal [facility] Comment on above: Result Comment: MALINA RED INR: 2.0 - 3.0 CONDITIONS NOT LISTED BELOW 2.5 - 3.5 FOR PROSTHETIC HEART VALVE REPLACEMENT 2.5 - 3.5 RECURRENT THROMBOSIS Performed By: #### P T ####[facility] Dudciddgal[address] [place], [place] [address]Dr. Farhat Leal PT Coag (PPP) [Time] 13.3 s Critically high 9.0-11.6 [facility] Comment on above: Performed By: #### P T ####[facility] Xxkgyhlfdn42[address] [place], [place] [address]Dr. Farhat Leal SED RATE WESTERGRENon 2021 SED RATE 60 mm/hr Critically high <=20 [facility] Comment on above: Performed By: #### S EDR ####[facility] Zjisvwcdgl98[address] [place] [address]Dr. Farhat Leal VANCOMYCIN TROUGHon 11-28-19 VANCOMYCIN TROUGH 21.2 ug/ml Critically high 5.0-20.0 Th e [facility] Comment on above: Performed By: #### V ANCT ####[facility] Pqlhjfrysu[address] [place], [place] [address]Dr. Farhat Leal XR CHEST 1 Von 11-27-2021 XR CHEST 1 V Normal [facility] BNPon 11-26-2021 Natriuretic peptide B (Bld) [Mass/Vol] 39150.0 pg/mL Critically high <=1,800.0 The [facility] Comment on above: Performed By: #### B WIRE INSPECTOR, CRP, CMP ####[facility] Latlgkuqit8[address] [place], [place] [address]Dr. Farhat Leal CBC AUTO DIFFon 11-26-2021 BASO # 0.0 103/ul Normal 0.0-0.1 [facility] Comment on above: Performed By: #### C BC ####[facility] Ncctbqqdpl[address] [place], [place] [address]Dr. Farhat Elvis Basophils/100 WBC (Bld) 0.2 % Normal 0.2-2.0 [facility] Comment on above: Performed By: #### C BC ####[facility] Bsxnzqgaeu33[address] [place], [place] [address]Dr. Farhat Leal EO # 0.0 103/ul Normal 0.0-0.7 [facility] Comment on above: Performed By: #### C BC ####[facility] Fhiwrulpry[address] [place], [place] [address]Dr. Farhat Elvis Eosinophils/100 WBC (Bld) 0.3 % Critically low 0.9-7.0 The [facility] Comment on above: Performed By: #### C BC ####[facility] Strxovhcjy[address] [place], [place] [address]Dr. Farhat Leal Erythrocyte distribution width (RBC) [Ratio] 13.9 % Normal 11.0-15.0 The [facility] Comment on above: Performed By: #### C BC ####[facility] Vpwvtetanf4644 [place] [address]Dr. Farhat Leal Hematocrit (Bld) [Volume fraction] 27.3 % Critically low 42.0-54.0 [facility] Comment on above: Performed By: #### C BC ####[facility] Sckzelmvdk0621 [place] [address]Dr. Farhat Leal Hemoglobin (Bld) [Mass/Vol] 8.8 g/dL Critically low 14.0-18.0 [facility] Comment on above: Performed By: #### C BC ####[facility] Nxvoiwvakh4739 [place] [address]Dr. Farhat Leal IG # 0.17 10e3/ul Critically high 0.00-0.03 [facility] Comment on above: Performed By: #### C BC ####[facility] Vsannaeimi[address] [place] [address]Dr. Farhat Leal IG % 1.2 % Critically high 0.0-0.5 [facility] Comment on above: Performed By: #### C BC ####[facility] Ubnvvzdujn8961 [place] [address]Dr. Farhat Leal LYMPH # 0.7 103/ul Critically low 1.2-3.8 [facility] Comment on above: Performed By: #### C BC ####[facility] Kmxyqmrkgc7023 [place] [address]Dr. Farhat Leal Lymphocytes/100 WBC (Bld) 4.8 % Critically low 20.5-60.0 The [facility] Comment on above: Performed By: #### C BC ####[facility] Mthqrwojvh4180 [place] [address]Dr. Farhat Leal MANUAL DIFF REQ NO Normal [facility] Comment on above: Performed By: #### C BC ####[facility] Cqcurklujz[address] [place], [place] [address]Dr. Farhat Leal MCH (RBC) [Entitic mass] 29.9 pg Normal 25.9-34.0 The [facility] Comment on above: Performed By: #### C BC ####[facility] Okjraeassm9913 [place] [id number]. Farhat Leal MCHC (RBC) [Mass/Vol] 32.2 g/dL Normal 29.9-35.2 The [facility] Comment on above: Performed By: #### C BC ####[facility] Dghftevwbu0434 [place] [address]Dr. Farhat Leal MCV (RBC) [Entitic vol] 92.9 fL Normal 80.0-94.0 The [facility] Comment on above: Performed By: #### C BC ####[facility] Yewbslimqs5879 [place] [address]Dr. Farhat Leal MONO # 1.3 103/ul Critically high 0.3-0.8 [facility] Comment on above: Performed By: #### C BC ####[facility] Bdjjdudcku2362 [place] [address]Dr. Farhat Leal Monocytes/100 WBC (Bld) 9.6 % Normal 1.7-12.0 The [facility] Comment on above: Performed By: #### C BC ####[facility] Aqkqopnife9[address] [place] [address]Dr. Farhat Leal NEUT # 11.4 103/ul Critically high 1.4-6.5 The [facility] Comment on above: Performed By: #### C BC ####[facility] Pcpidaoijb4885 [place] [id number]. Farhat Elvis Neutrophils/100 WBC (Bld) 83.9 % Critically high 43.0-75.0 The [facility] Comment on above: Performed By: #### C BC ####[facility] Stcngwbtts[address] [place] [address]Dr. Farhat Leal Platelet mean volume (Bld) [Entitic vol] 9.6 fL Normal 9.5-13.5 The [facility] Comment on above: Performed By: #### C BC ####[facility] Ztqcdztyft6717 [place] [id number]. Farhat Leal PLT 395 103/ul Normal 150-450 [facility] Comment on above: Performed By: #### C BC ####[facility] Iikwqtorzx1177 [place] [address]Dr. Farhat Leal RBC 2.94 106/ul Critically low 4.70-6.10 [facility] Comment on above: Performed By: #### C BC ####[facility] Dlcrpimidx7049 [place] [id number]. Farhat Leal WBC 13.6 103/ul Critically high 4.0-11.0 The [facility] Comment on above: Performed By: #### C BC ####[facility] Iormcucici2259 [place] [address]Dr. Farhat Leal CRPon 11-26-2021 CRP [Mass/Vol] mg/L Critically high <=1.0 [facility] Comment on above: Performed By: #### B WIRE INSPECTOR, CRP, CMP ####[facility] Twgertlyux4561 [place] [address]Dr. Farhat Leal PROF 14(COMP METB)on 022 Albumin [Mass/Vol] 1.5 g/dL Critically low 3.4-5.0 [facility] Comment on above: Performed By: #### B WIRE INSPECTOR, CRP, CMP ####[facility] Qogworumhd6922 [place] [address]Dr. Farhat Leal Albumin/Globulin [Mass ratio] 0.4 {ratio} Normal [facility] Comment on above: Performed By: #### B WIRE INSPECTOR, CRP, CMP ####[facility] Hcmffqxgej7824 [place] [address]Dr. Farhat Leal ALP [Catalytic activity/Vol] 88 U/L Normal 46-116 [facility] Comment on above: Performed By: #### B WIRE INSPECTOR, CRP, CMP ####[facility] Xnjtffxwka9367 [place] [address]Dr. Farhat Leal ALT [Catalytic activity/Vol] 29 U/L Normal 16-63 [facility] Comment on above: Performed By: #### B WIRE INSPECTOR, CRP, CMP ####[facility] Qtgnrvhlpi7339 [place] [address]Dr. Farhat Leal Anion gap [Moles/Vol] 13.3 mmol/L Normal [facility] Comment on above: Performed By: #### B WIRE INSPECTOR, CRP, CMP ####[facility] Euabxyneik4142 [place] [address]Dr. Farhat Leal AST [Catalytic activity/Vol] 32 U/L Normal 15-37 [facility] Comment on above: Performed By: #### B WIRE INSPECTOR, CRP, CMP ####[facility] Ahqwjiiudx[address] [place], [place] [address]Dr. Farhat Leal Bilirubin [Mass/Vol] 0.6 mg/dL Normal 0.2-1.0 [facility] Comment on above: Performed By: #### B WIRE INSPECTOR, CRP, CMP ####[facility] Ydmhuezzkx22[address] [place], [place] [address]Dr. Farhat Leal Calcium [Mass/Vol] 8.0 mg/dL Critically low 8.5-10.1 [facility] Comment on above: Performed By: #### B WIRE INSPECTOR, CRP, CMP ####[facility] Duaywxrdzs[address] [place], [place] [address]Dr. Farhat Leal Chloride [Moles/Vol] 98 mmol/L Normal 98-107 [facility] Comment on above: Performed By: #### B WIRE INSPECTOR, CRP, CMP ####[facility] Gjaavepqlg7092[address] [place], [place] [address]Dr. Farhat Leal CO2 [Moles/Vol] 23.7 mmol/L Normal 21.0-32.0 The [facility] Comment on above: Performed By: #### B WIRE INSPECTOR, CRP, CMP ####[facility] Dqikpyaeee69[address] [place], [place] [address]Dr. Farhat Leal Creatinine [Mass/Vol] 2.08 mg/dL Critically high 0.70-1.30 [facility] Comment on above: Performed By: #### B WIRE INSPECTOR, CRP, CMP ####[facility] Npaxdiqvcg2083 [place] [address]Dr. Farhat Leal EGFR-AF KAZAKH 38 mL/min/1.73m2 Critically low >=60 [facility] Comment on above: Performed By: #### B WIRE INSPECTOR, CRP, CMP ####[facility] Alpyefeqvf[address] [place], [place] [address]Dr. Farhat Leal EGFR-NON AF KAZAKH 31 mL/min/1.73m2 Critically low >=60 [facility] Comment on above: Performed By: #### B WIRE INSPECTOR, CRP, CMP ####[facility] Aahsdjhfyr[address] [place], [place] [address]Dr. Farhat Leal Globulin (S) [Mass/Vol] 3.7 g/dL Normal [facility] Comment on above: Performed By: #### B WIRE INSPECTOR, CRP, CMP ####[facility] Qhmohldrdz33[address] [place], [place] [address]Dr. Farhat Leal Glucose [Mass/Vol] 315 mg/dL Critically high 74-106 T [facility] Comment on above: Performed By: #### B WIRE INSPECTOR, CRP, CMP ####[facility] Msgnlklkmu26[address] [place], [place] [address]Dr. Farhat Leal Potassium [Moles/Vol] 4.0 mmol/L Normal 3.5-5.1 [facility] Comment on above: Performed By: #### B WIRE INSPECTOR, CRP, CMP ####[facility] Nadgcgykgz[address] [place], [place] [address]Dr. Farhat Leal Protein [Mass/Vol] 5.2 g/dL Critically low 6.4-8.[address] [facility] Comment on above: Performed By: #### B WIRE INSPECTOR, CRP, CMP ####[facility] Xbywpbskdy[address] [place], [place] [address]Dr. Farhat Leal Sodium [Moles/Vol] 131 mmol/L Critically low 136-[address] [facility] Comment on above: Performed By: #### B WIRE INSPECTOR, CRP, CMP ####[facility] Mvnbcitqub[address] [place], [place] [address]Dr. Madelynlorri Leal Urea nitrogen [Mass/Vol] 50.0 mg/dL Critically high 7.0-18.0 [facility] Comment on above: Performed By: #### B WIRE INSPECTOR, CRP, CMP ####[facility] Wrtexrjlgt[address] [place], [place] [address]Dr. Farhat Leal Urea nitrogen/Creatinine [Mass ratio] 24.0 mg/mg Normal [facility] Comment on above: Performed By: #### B WIRE INSPECTOR, CRP, CMP ####[facility] Jeescxizvi[address] [place], [place] [address]Dr. Farhat Leal PROTIMEon 11-26-2021 INR Coag (PPP) [Relative time] 1.31 {INR} Normal [facility] Comment on above: Performed By: #### P T ####[facility] Ocqkzffuqz[address] [place], [place] [address]Dr. Farhat Leal INR GUIDELINES SEE BELOW Normal [facility] Comment on above: Result Comment: MALINA RED INR: 2.0 - 3.0 CONDITIONS NOT LISTED BELOW 2.5 - 3.5 FOR PROSTHETIC HEART VALVE REPLACEMENT 2.5 - 3.5 RECURRENT THROMBOSIS Performed By: #### P T ####[facility] [address]ebwroexmc[address] [place], [place] [address]Dr. Farhat Leal PT Coag (PPP) [Time] 13.9 s Critically high 9.0-11.6 [facility] Comment on above: Performed By: #### P T ####[facility] Tbdabogrhi[address] [place], [place] [address]Dr. Farhat Leal SED RATE WESTERGRENon 2021 SED RATE 87 mm/hr Critically high <=20 [facility] Comment on above: Performed By: #### S EDR ####[facility] [address]lysgudcmp[address] [place], [place] [address]Dr. Farhat Leal BNPon 11-25-2021 Natriuretic peptide B (Bld) [Mass/Vol] 35575.0 pg/mL Critically high <=1,800.0 [facility] Comment on above: Performed By: #### C MP, BNP, CRP ####[facility] Oqff[address] [place], [place] [address]Dr. Farhat Leal CBC AUTO DIFFon 11-25-2021 BASO # 0.0 103/ul Normal 0.0-0.1 [facility] Comment on above: Performed By: #### C BC ####[facility] [address] [place] [address]Dr. Farhat Leal Basophils/100 WBC (Bld) 0.4 % Normal 0.2-2.0 [facility] Comment on above: Performed By: #### C BC ####[facility] Nsqp[address]ex[address] [place], [place] [address]Dr. Farhat Leal EO # 0.1 103/ul Normal 0.0-0.7 [facility] Comment on above: Performed By: #### C BC ####[facility] Wiypazgusk[address] [place], [place] [address]Dr. Farhat Leal Eosinophils/100 WBC (Bld) 1.2 % Normal 0.9-7.0 [facility] Comment on above: Performed By: #### C BC ####[facility] Hozfoeuvet[address] [place], [place] [address]Dr. Farhat Leal Erythrocyte distribution width (RBC) [Ratio] 13.7 % Normal 11.0-15.0 [facility] Comment on above: Performed By: #### C BC ####[facility] Aivkjgrqca[address] [place], [place] [address]Dr. Farhat Leal Hematocrit (Bld) [Volume fraction] 29.6 % Critically low 42.0-54.0 [facility] Comment on above: Performed By: #### C BC ####[facility] Gxtfkdfaal[address] [place], [place] [address]Dr. Farhat Leal Hemoglobin (Bld) [Mass/Vol] 9.3 g/dL Critically low 14.0-18.0 [facility] Comment on above: Performed By: #### C BC ####[facility] Pbtxiey[address]sh[address] [place], [place] [address]Dr. Farhat Leal IG # 0.15 10e3/ul Critically high 0.00-0.03 [facility] Comment on above: Performed By: #### C BC ####[facility] Vvntq[address]oyv[address] [place], [place] [address]Dr. Farhat Leal IG % 1.4 % Critically high 0.0-0.5 [facility] Comment on above: Performed By: #### C BC ####[facility] Yqacdhuvns[address] [place] [address]Dr. Farhat Leal LYMPH # 0.8 103/ul Critically low 1.2-3.8 The [facility] Comment on above: Performed By: #### C BC ####[facility] Tjvhuxzmps[address] [place] [address]Dr. Farhat Leal Lymphocytes/100 WBC (Bld) 7.3 % Critically low 20.5-60.0 [facility] Comment on above: Performed By: #### C BC ####[facility] Xfjqkhisyg[address] [place] [address]Dr. Farhat Leal MANUAL DIFF REQ NO Normal [facility] Comment on above: Performed By: #### C BC ####[facility] Unqiwkzuyo[address] [place] [address]Dr. Farhat Elvis MCH (RBC) [Entitic mass] 29.3 pg Normal 25.9-34.0 [facility] Comment on above: Performed By: #### C BC ####[facility] Unuvxcvxcz[address] [place] [address]Dr. Farhat Elvis MCHC (RBC) [Mass/Vol] 31.4 g/dL Normal 29.9-35.2 [facility] Comment on above: Performed By: #### C BC ####[facility] Kqtbzyzcko[address] [place] [address]Dr. Farhat Leal MCV (RBC) [Entitic vol] 93.4 fL Normal 80.0-94.0 [facility] Comment on above: Performed By: #### C BC ####[facility] Fnbazsahwg[address] [place] [address]Dr. Farhat Leal MONO # 1.3 103/ul Critically high 0.3-0.8 [facility] Comment on above: Performed By: #### C BC ####[facility] Wfjuzddadn[address] [place] [address]Dr. Farhat Leal Monocytes/100 WBC (Bld) 12.3 % Critically high 1.7-12.0 [facility] Comment on above: Performed By: #### C BC ####[facility] Pmmgtivzva[address] [place] [address]Dr. Farhat Leal NEUT # 8.4 103/ul Critically high 1.4-6.5 [facility] Comment on above: Performed By: #### C BC ####[facility] Lhvvyjtpqz038[address] [place] [address]Dr. Farhat Leal Neutrophils/100 WBC (Bld) 77.4 % Critically high 43.0-75.0 [facility] Comment on above: Performed By: #### C BC ####[facility] Nncyasxrrp5[address] [place] [address]Dr. Farhat Leal Platelet mean volume (Bld) [Entitic vol] 9.8 fL Normal 9.5-13.5 [facility] Comment on above: Performed By: #### C BC ####[facility] Wwmnqcazbx33[address] [place] [address]Dr. Farhat Leal PLT 390 103/ul Normal 150-450 [facility] Comment on above: Performed By: #### C BC ####[facility] Ilpizxpfif[address] [place] [address]Dr. Farhat Leal RBC 3.17 106/ul Critically low 4.70-6.10 [facility] Comment on above: Performed By: #### C BC ####[facility] Itxxtxiqwt52[address] [place] [address]Dr. Farhat Leal WBC 10.9 103/ul Normal 4.0-11.0 [facility] Comment on above: Performed By: #### C BC ####[facility] Abhobyzvdp4[address] [place] [address]Dr. Farhat Leal CRPon 11-25-2021 CRP 27.2 mg/dL Critically high <=1.0 [facility] Comment on above: Performed By: #### C MP, BNP, CRP ####[facility] Gjbytbakgn[address] [place] [address]Dr. Farhat Leal PROF 14(COMP METB)on 022 Albumin [Mass/Vol] 1.5 g/dL Critically low 3.4-5.0 [facility] Comment on above: Performed By: #### C MP, BNP, CRP ####[facility] Zgrnyvwlio99[address] [place] [address]Dr. Farhat Leal Albumin/Globulin [Mass ratio] 0.4 {ratio} Normal [facility] Comment on above: Performed By: #### C MP, BNP, CRP ####[facility] Zxdytwedjd8140 [place] [address]Dr. Farhat Leal ALP [Catalytic activity/Vol] 86 U/L Normal 46-116 [facility] Comment on above: Performed By: #### C MP, BNP, CRP ####[facility] Qzkyiibled[address] [place], [place] [address]Dr. Farhat Leal ALT [Catalytic activity/Vol] 34 U/L Normal 16-63 [facility] Comment on above: Performed By: #### C MP, BNP, CRP ####[facility] Nunquyhyyw[address] [place], [place] [address]Dr. Farhat Leal Anion gap [Moles/Vol] 17.8 mmol/L Normal [facility] Comment on above: Performed By: #### C MP, BNP, CRP ####[facility] Zvtrxjpows64[address] [place], [place] [address]Dr. Farhat Leal AST [Catalytic activity/Vol] 48 U/L Critically high 15-37 [facility] Comment on above: Performed By: #### C MP, BNP, CRP ####[facility] Hfiujxshqm69[address] [place] [address]Dr. Farhat Leal Bilirubin [Mass/Vol] 0.8 mg/dL Normal 0.2-1.0 [facility] Comment on above: Performed By: #### C MP, BNP, CRP ####[facility] Yawzslujpr9[address] [place], [place] [address]Dr. Farhat Leal Calcium [Mass/Vol] 8.3 mg/dL Critically low 8.5-10.[address] [facility] Comment on above: Performed By: #### C MP, BNP, CRP ####[facility] Rivhltmwei7125 [place] [address]Dr. Farhat Leal Chloride [Moles/Vol] 97 mmol/L Critically low 98-107 [facility] Comment on above: Performed By: #### C MP, BNP, CRP ####[facility] Ytaqwuzine94[address] [place] [address]Dr. Farhat Leal CO2 [Moles/Vol] 23.0 mmol/L Normal 21.0-32.0 [facility] Comment on above: Performed By: #### C MP, BNP, CRP ####[facility] Jbivoyzmmj[address] [place], [place] [address]Dr. Farhat Leal Creatinine [Mass/Vol] 1.68 mg/dL Critically high 0.70-1.30 [facility] Comment on above: Performed By: #### C MP, BNP, CRP ####[facility] Bkxjzghatf[address] [place], [place] [address]Dr. Farhat Leal EGFR-AF KAZAKH 48 mL/min/1.73m2 Critically low >=60 [facility] Comment on above: Performed By: #### C MP, BNP, CRP ####[facility] Lsjyfotmzj[address] [place], [place] [address]Dr. Farhat Leal EGFR-NON AF KAZAKH 40 mL/min/1.73m2 Critically low >=60 [facility] Comment on above: Performed By: #### C MP, BNP, CRP ####[facility] Qzaauczzjp099[address] [place], [place] [address]Dr. Farhat Leal Globulin (S) [Mass/Vol] 3.9 g/dL Normal [facility] Comment on above: Performed By: #### C MP, BNP, CRP ####[facility] Occoonvups[address] [place], [place] [address]Dr. Madelynlorri Leal Glucose [Mass/Vol] 282 mg/dL Critically high 74-106 T [facility] Comment on above: Performed By: #### C MP, BNP, CRP ####[facility] Aoagrrbpgp28[address] [place] [address]Dr. Farhat Leal Potassium [Moles/Vol] 4.8 mmol/L Normal 3.5-5.1 [facility] Comment on above: Performed By: #### C MP, BNP, CRP ####[facility] Auaagznvmv4773 [place] [address]Dr. Farhat Leal Protein [Mass/Vol] 5.4 g/dL Critically low 6.4-8.[address] [facility] Comment on above: Performed By: #### C MP, BNP, CRP ####[facility] Ryonjijwta7[address] [place], [place] [address]Dr. Farhat Leal Sodium [Moles/Vol] 133 mmol/L Critically low 136-[address] [facility] Comment on above: Performed By: #### C MP, BNP, CRP ####[facility] Jfxobomcbb22[address] [place], [place] [address]Dr. Farhat Leal Urea nitrogen [Mass/Vol] 40.0 mg/dL Critically high 7.0-18.0 [facility] Comment on above: Performed By: #### C MP, BNP, CRP ####[facility] Ijegumolcg15[address] [place], [place] [address]Dr. Farhat Leal Urea nitrogen/Creatinine [Mass ratio] 23.8 mg/mg Normal [facility] Comment on above: Performed By: #### C MP, BNP, CRP ####[facility] Nnxbxxwmhl8[address] [place], [place] [address]Dr. Farhat Leal PROTIMEon 11-25-2021 INR Coag (PPP) [Relative time] 1.48 {INR} Normal [facility] Comment on above: Performed By: #### P T ####[facility] Hjthmxkffc[address] [place], [place] [address]Dr. Farhat Leal INR GUIDELINES SEE BELOW Normal [facility] Comment on above: Result Comment: MALINA RED INR: 2.0 - 3.0 CONDITIONS NOT LISTED BELOW 2.5 - 3.5 FOR PROSTHETIC HEART VALVE REPLACEMENT 2.5 - 3.5 RECURRENT THROMBOSIS Performed By: #### P T ####[facility] Uaklralhde[address] [place], [place] [address]Dr. Madelynlorri Leal PT Coag (PPP) [Time] 15.6 s Critically high 9.0-11.6 [facility] Comment on above: Performed By: #### P T ####[facility] Zpujjgeefx47[address] [place] [address]Dr. Farhat Elvis SED RATE WESTERGRENon 2021 SED RATE 76 mm/hr Critically high <=20 [facility] Comment on above: Performed By: #### S EDR ####[facility] Msfwpebmft[address] [place] [address]Dr. Farhat Elvis BNPon 11-24-2021 Natriuretic peptide B (Bld) [Mass/Vol] 40669.0 pg/mL Critically high <=1,800.0 [facility] Comment on above: Performed By: #### B WIRE INSPECTOR, CMP, CRP ####[facility] Vmwnvzgada4585 [place] [address]Dr. Madelynlorri Leal CBC AUTO DIFFon 11-24-2021 BASO # 0.0 103/ul Normal 0.0-0.1 [facility] Comment on above: Performed By: #### C BC ####[facility] Bvqmltvmfh9[address] [place] [address]Dr. Farhat Leal Basophils/100 WBC (Bld) 0.3 % Normal 0.2-2.0 [facility] Comment on above: Performed By: #### C BC ####[facility] Oalvxpilta8798 [place] [address]Dr. Farhat Leal EO # 0.2 103/ul Normal 0.0-0.7 [facility] Comment on above: Performed By: #### C BC ####[facility] Oiaxdvmltp1773 [place] [address]Dr. Farhat Leal Eosinophils/100 WBC (Bld) 1.2 % Normal 0.9-7.0 [facility] Comment on above: Performed By: #### C BC ####[facility] Jtaxyyxtmf2329 [place] [address]Dr. Farhat Leal Erythrocyte distribution width (RBC) [Ratio] 13.5 % Normal 11.0-15.0 [facility] Comment on above: Performed By: #### C BC ####[facility] Wljftuujye7366 [place] [address]DrSklyar Leal Hematocrit (Bld) [Volume fraction] 31.1 % Critically low 42.0-54.0 [facility] Comment on above: Performed By: #### C BC ####[facility] Mwmjackslc1232 [place] [address]DrSkylar Leal Hemoglobin (Bld) [Mass/Vol] 10.0 g/dL Critically low 14.0-18.0 [facility] Comment on above: Performed By: #### C BC ####[facility] Egkwxfxrhu[address] [place], [place] [address]DrSkylar Leal IG # 0.13 10e3/ul Critically high 0.00-0.03 [facility] Comment on above: Performed By: #### C BC ####[facility] Gkkygecvdd7[address] [place], [place] [address]DrSkylar Leal IG % 1.0 % Critically high 0.0-0.5 [facility] Comment on above: Performed By: #### C BC ####[facility] Idhjzkxayn[address] [place], [place] [address]DrSkylar Leal LYMPH # 0.7 103/ul Critically low 1.2-3.8 The [facility] Comment on above: Performed By: #### C BC ####[facility] Fdhebbxcte[address] [place], [place] [address]DrSkylar Leal Lymphocytes/100 WBC (Bld) 4.9 % Critically low 20.5-60.0 [facility] Comment on above: Performed By: #### C BC ####[facility] Zotcownmqf[address] [place], [place] [address]DrSkylar Leal MANUAL DIFF REQ NO Normal [facility] Comment on above: Performed By: #### C BC ####[facility] Wavsfaobmc[address] [place], [place] [address]DrSkylar Leal MCH (RBC) [Entitic mass] 29.6 pg Normal 25.9-34.0 [facility] Comment on above: Performed By: #### C BC ####[facility] Liizxevjpx8737 [place] [address]DrSkylar Leal MCHC (RBC) [Mass/Vol] 32.2 g/dL Normal 29.9-35.2 [facility] Comment on above: Performed By: #### C BC ####[facility] Ngyybvchnu9834 [place] [address]DrSkylar Leal MCV (RBC) [Entitic vol] 92.0 fL Normal 80.0-94.0 [facility] Comment on above: Performed By: #### C BC ####[facility] Uljszgebxc60[address] [place], [place] [address]DrSkylar Leal MONO # 1.3 103/ul Critically high 0.3-0.8 [facility] Comment on above: Performed By: #### C BC ####[facility] Phfpyspduf27[address] [place], [place] [address]DrSkylar Leal Monocytes/100 WBC (Bld) 9.6 % Normal 1.7-12.0 [facility] Comment on above: Performed By: #### C BC ####[facility] Hdktlzxzox[address] [place], [place] [address]DrSkylar Leal NEUT # 11.2 103/ul Critically high 1.4-6.5 The [facility] Comment on above: Performed By: #### C BC ####[facility] Qnaleihdus65[address] [place], [place] [address]DrSkylar Leal Neutrophils/100 WBC (Bld) 83.0 % Critically high 43.0-75.0 [facility] Comment on above: Performed By: #### C BC ####[facility] Wfwazffgqv5[address] [place], [place] [address]DrSkylar Leal Platelet mean volume (Bld) [Entitic vol] 9.5 fL Normal 9.5-13.5 [facility] Comment on above: Performed By: #### C BC ####[facility] Yhcdcqtgze98[address] [place], [place] [address]Dr. Farhat Leal PLT 395 103/ul Normal 150-450 [facility] Comment on above: Performed By: #### C BC ####[facility] Lborizovsw4222 [place] [id number]. Farhat Leal RBC 3.38 106/ul Critically low 4.70-6.10 [facility] Comment on above: Performed By: #### C BC ####[facility] Hjsqtdejek0565 [place] [address]Dr. Farhat Leal WBC 13.4 103/ul Critically high 4.0-11.0 The [facility] Comment on above: Performed By: #### C BC ####[facility] Beiiharxxa0758 [place] [address]Dr. Farhat Leal CRPon 11-24-2021 CRP 27.8 mg/dL Critically high <=1.0 [facility] Comment on above: Performed By: #### B WIRE INSPECTOR, CMP, CRP ####[facility] Rhilxwguxf[address] [place], [place] [id number]. Farhat Leal CULTURE ANAEROBICon 11-25-19 22 CULTURE ANAEROBIC Culture Observations : NO GROWTH OF ANAEROBES AT 72 HOURS. [facility] Comment on above: Performed By: #### A NACX ####[facility] Sc[address]vstfegv[address] [place], [place] [id number]. Farhat Leal CULTURE ANAEROBIC Culture Observations : NO GROWTH OF ANAEROBES AT 72 HOURS. [facility] Comment on above: Performed By: #### A NACX ####[facility] Ddmaovngtc2069 [place] [id number]. Farhat Leal CULTURE ANAEROBIC Culture Observations : No growth of anaerobes at 72 hours. [facility] Comment on above: Performed By: #### A NACX ####[facility] Glpfomlnaj66[address] [place], [place] [address]Dr. Farhat Leal CULTURE ANAEROBIC Culture Observations : No growth of anaerobes at 72 hours. [facility] Comment on above: Performed By: #### A NACX ####[facility] Rcuoqookyo[address] [place], [place] [id number]. Farhat Leal CULTURE URINEon 11-24-2021 CULTURE URINE Culture Observations : NO GROWTH. Normal [facility] Comment on above: Performed By: #### U RCX ####[facility] Binsikynyt[address] [place], [place] [address]Dr. Farhat Leal ECHOCARDIO M/2D COMPLETEon 1 ECHOCARDIO M/2D COMPLETE Normal [facility] ER URINE PROFILEon Bilirubin Ql (U) Negative Normal NEGATIVE The [facility] Comment on above: Performed By: #### E RUR ####[facility] Umelsxvagp1247[address] [place], [place] [address]Dr. Farhat Leal Clarity (U) CLEAR Normal CLEAR [facility] Comment on above: Performed By: #### E RUR ####[facility] Hclxknahen364[address] [place], [place] [address]Dr. Farhat Leal Color (U) YELLOW Normal YELLOW [facility] Comment on above: Performed By: #### E RUR ####[facility] Fpejoawqdq[address] [place], [place] [address]Dr. Farhat Leal ERUAHD A micrscopic examination will be performed if indicated. Normal [facility] Comment on above: Performed By: #### E RUR ####[facility] Mtlshlkefw6[address] [place], [place] [address]Dr. Madelynlorri Elvis Glucose Ql (U) Negative Normal NEGATIVE The [facility] Comment on above: Performed By: #### E RUR ####[facility] Szyldoljqy[address] [place], [place] [address]Dr. Farhat Leal Hemoglobin Ql (U) Negative Normal NEGATIVE The [facility] Comment on above: Performed By: #### E RUR ####[facility] Yxdajugtrp8[address] [place], [place] [address]Dr. Farhat Leal Ketones Ql (U) TRACE Abnormal NEGATIVE The [facility] Comment on above: Performed By: #### E RUR ####[facility] Adnhxyrchw[address]42[address] [place], [place] [address]Dr. Farhat Leal LEUKOCYTES Negative Normal NEGATIVE [facility] Comment on above: Performed By: #### E RUR ####[facility] Apgnzqufxt8676 [place] [address]Dr. Farhat Leal Nitrite Ql (U) Negative Normal NEGATIVE The [facility] Comment on above: Performed By: #### E RUR ####[facility] Ebvqcegznf12[address] [place], [place] [address]Dr. Farhat Leal pH (U) 5.5 [pH] Normal 5-9 [facility] Comment on above: Performed By: #### E RUR ####[facility] Fgpzwqbjtt50[address] [place], [place] [address]Dr. Farhat Leal SPEC GRAVITY 1.015 Normal 1.005-<=1.02 5 [facility] Comment on above: Performed By: #### E RUR ####[facility] Hiexsjnoin[address] [place], [place] [address]Dr. Farhat Leal UA PROTEIN Negative Normal NEGATIVE/ TRACE [facility] Comment on above: Performed By: #### E RUR ####[facility] Kzbhgrbifx4[address] [place], [place] [address]Dr. Farhat Leal UR MICRO IND NOT INDICATED Normal [facility] Comment on above: Performed By: #### E RUR ####[facility] Fbvdkozpsk8[address] [place], [place] [address]Dr. Farhat Leal Urobilinogen Qn (U) 0.2 {Boyd'U}/dL Normal 0.2 - 1. 0 [facility] Comment on above: Performed By: #### E RUR ####[facility] Rirwzsdvth8[address] [place], [place] [address]Dr. Farhat Leal GRAM STAINon 11-24-2021 DIPHTHEROIDS Normal [facility] Comment on above: Performed By: #### G STAIN ####[facility] Tmzcfnvccv[address] [place], [place] [address]Dr. Farhat Leal EPITHELIALS Normal [facility] Comment on above: Performed By: #### G STAIN ####[facility] Xsnqkrdvcx[address] [place], [place] [address]Dr. Farhat Leal FUNGAL ELEMENTS Normal [facility] Comment on above: Performed By: #### G STAIN ####[facility] Woyoxsomxu2095 [place] [id number]. Farhat Leal GRAM NEG BACILLI Normal The [facility] Comment on above: Performed By: #### G STAIN ####[facility] Wkxumczbbh9643 [place] [address]Dr. Farhat Leal GRAM NEG DIPPLOCOCCI Normal [facility] Comment on above: Performed By: #### G STAIN ####[facility] Lmnbpgrkyg7386 [place] [address]Dr. Farhat Leal GRAM POS BACILLI Normal The [facility] Comment on above: Performed By: #### G STAIN ####[facility] Zxotthrjcf[address] [place], [place] [address]Dr. Farhat Leal GRAM POSITIVE COCCI FEW Normal The [facility] Comment on above: Performed By: #### G STAIN ####[facility] Ujsioyojqe5[address] [place], [place] [address]Dr. Farhat Leal GRAM STAIN SOURCE RT ACHILLES TENDON Normal [facility] Comment on above: Performed By: #### G STAIN ####[facility] Baytqfynbt0[address] [place], [place] [address]Dr. Farhat Leal GS_DIPTH Normal [facility] Comment on above: Performed By: #### G STAIN ####[facility] Lihzfrmqbk[address] [place], [place] [address]Dr. Farhat Leal WBC RARE Normal [facility] Comment on above: Performed By: #### G STAIN ####[facility] Bhtqeafvfk[address] [place], [place] [address]Dr. Farhat Leal COMMENTS NO ORGANISMS OBSERVED Normal [facility] Comment on above: Performed By: #### G STAIN ####[facility] Fnaywzppml6[address] [place] [address]Dr. Farhat Leal DIPHTHEROIDS Normal [facility] Comment on above: Performed By: #### G STAIN ####[facility] Onoqebbixm32[address] [place] [address]Dr. Farhat Leal EPITHELIALS Normal [facility] Comment on above: Performed By: #### G STAIN ####[facility] Ofmcziifjg3294 [place] [address]Dr. Farhat Leal FUNGAL ELEMENTS Normal [facility] Comment on above: Performed By: #### G STAIN ####[facility] Pknxvubrxs23[address] [place] [address]Dr. Farhat Leal GRAM NEG BACILLI Normal The [facility] Comment on above: Performed By: #### G STAIN ####[facility] Zwezsuienv[address] [place] [address]Dr. Farhat Leal GRAM NEG DIPPLOCOCCI Normal [facility] Comment on above: Performed By: #### G STAIN ####[facility] Kfuoizvfnn[address] [place], [place] [address]Dr. Farhat Leal GRAM POS BACILLI Normal The [facility] Comment on above: Performed By: #### G STAIN ####[facility] [address]daoriwilk[address] [place], [place] [address]Dr. Farhat Leal GRAM POSITIVE COCCI Normal The [facility] Comment on above: Performed By: #### G STAIN ####[facility] Eevdpgwzpr[address] [place], [place] [address]Dr. Farhat Leal GRAM STAIN SOURCE RT CALCANEOUS Normal [facility] Comment on above: Performed By: #### G STAIN ####[facility] [facility] Cvfmmoyeve[address] [place], [place] [address]Dr. Farhat Leal GS_DIPTH Normal The [facility] Comment on above: Performed By: #### G STAIN ####[facility] Dkliirdzwy[address] [place], [place] [address]Dr. Farhat Leal WBC RARE Normal [facility] Comment on above: Performed By: #### G STAIN ####[facility] Bwtsmklduu[address] [place] [address]Dr. Farhat Leal DIPHTHEROIDS Normal The [facility] Comment on above: Performed By: #### G STAIN ####[facility] Blqpcvxmzi[address] [place], [place] [address]Dr. Farhat Leal EPITHELIALS Normal The [facility] Comment on above: Performed By: #### G STAIN ####[facility] Ppyfsnpgfv[address] [place], [place] [address]Dr. Farhat Leal FUNGAL ELEMENTS Normal The [facility] Comment on above: Performed By: #### G STAIN ####[facility] Yzihnpuewi50[address] [place] [id number]. Farhat Leal GRAM NEG BACILLI FEW Normal The [facility] Comment on above: Performed By: #### G STAIN ####[facility] Vgflqsqqsh0318 [place] [id number]. Farhat Leal GRAM NEG DIPPLOCOCCI Normal The [facility] Comment on above: Performed By: #### G STAIN ####[facility] Xcfpkflfij8051 [place] [address]Dr. Farhat Leal GRAM POS BACILLI Normal The [facility] Comment on above: Performed By: #### G STAIN ####[facility] Rnjoyzbrnq5477 [place] [address]Dr. Farhat Leal GRAM POSITIVE COCCI FEW Normal [facility] Comment on above: Performed By: #### G STAIN ####[facility] Qesyfbimco[address] [place], [place] [address]Dr. Farhat Leal GRAM STAIN SOURCE #2 Rt foot abscess Normal The [facility] Comment on above: Performed By: #### G STAIN ####[facility] Rbyocriodq1832 [place] [address]Dr. Farhat Leal GS_DIPTH Normal The [facility] Comment on above: Performed By: #### G STAIN ####[facility] Rywjksdbbn1185 [place] [address]Dr. Farhat Leal WBC RARE Normal The [facility] Comment on above: Performed By: #### G STAIN ####[facility] Bukqsghvtg6530 [place] [id number]. Farhat Leal DIPHTHEROIDS Normal The [facility] Comment on above: Performed By: #### G STAIN ####[facility] Csvifqsrwh[address] [place], [place] [address]Dr. Farhat Leal EPITHELIALS Normal The [facility] Comment on above: Performed By: #### G STAIN ####[facility] Hrncbdjznv8465 [place] [address]Dr. Farhat Leal FUNGAL ELEMENTS Normal The [facility] Comment on above: Performed By: #### G STAIN ####[facility] Edmttrlbzg9532 [place] [address]Dr. Farhat Leal GRAM NEG BACILLI FEW Normal The [facility] Comment on above: Performed By: #### G STAIN ####[facility] Qllezgejfv7557 [place] [address]Dr. Farhat Leal GRAM NEG DIPPLOCOCCI Normal The [facility] Comment on above: Performed By: #### G STAIN ####[facility] Tirdudeuoi27[address] [place] [address]Dr. Farhat Leal GRAM POS BACILLI Normal The [facility] Comment on above: Performed By: #### G STAIN ####[facility] Itkrydnpqq[address] [place], [place] [address]Dr. Farhat Leal GRAM POSITIVE COCCI FEW Normal The [facility] Comment on above: Performed By: #### G STAIN ####[facility] Rapbbpswmb25[address] [place], [place] [address]Dr. Farhat Leal GRAM STAIN SOURCE #1 Rt foot abscess Normal The [facility] Comment on above: Performed By: #### G STAIN ####[facility] Jgeghmjfps[address] [place], [place] [address]Dr. Farhat Leal GS_DIPTH Normal The [facility] Comment on above: Performed By: #### G STAIN ####[facility] Ndvijxxaay5436 [place] [address]Dr. Farhat Leal WBC NONE SEEN Normal The [facility] Comment on above: Performed By: #### G STAIN ####[facility] Tuycrxpkgu5788 [place] [address]Dr. Farhat Leal POINT OF CARE GLUCOSEon 10-1 0 Glucose [Mass/Vol] 331 mg/dL Critically high 74-106 [facility] Comment on above: Performed By: #### P OCGLUC ####[facility] Ckvviejbsh8085 [place] [address]Dr. Farhat Leal Glucose [Mass/Vol] 236 mg/dL Critically high 74-106 [facility] Comment on above: Performed By: #### P OCGLUC ####[facility] Xeudrjxjbx3735 [place] [address]Dr. Farhat Leal PROF 14(COMP METB)on 022 Albumin [Mass/Vol] 1.6 g/dL Critically low 3.4-5.0 [facility] Comment on above: Performed By: #### B WIRE INSPECTOR, CMP, CRP ####[facility] Fceodkqsrp4543 [place] [address]Dr. Farhat Leal Albumin/Globulin [Mass ratio] 0.4 {ratio} Normal [facility] Comment on above: Performed By: #### B WIRE INSPECTOR, CMP, CRP ####[facility] Qufrsdstmi7234 [place] [address]Dr. Farhat Leal ALP [Catalytic activity/Vol] 94 U/L Normal 46-116 [facility] Comment on above: Performed By: #### B WIRE INSPECTOR, CMP, CRP ####[facility] Tvpyohzbsk4920 [place] [address]Dr. Farhat Leal ALT [Catalytic activity/Vol] 49 U/L Normal 16-63 [facility] Comment on above: Performed By: #### B WIRE INSPECTOR, CMP, CRP ####[facility] Cgannhmaos8050 [place] [address]Dr. Farhat Leal Anion gap [Moles/Vol] 12.5 mmol/L Normal [facility] Comment on above: Performed By: #### B WIRE INSPECTOR, CMP, CRP ####[facility] Vjhajwcfmh1908 [place] [address]Dr. Farhat Leal AST [Catalytic activity/Vol] 102 U/L Critically high 15-37 [facility] Comment on above: Performed By: #### B WIRE INSPECTOR, CMP, CRP ####[facility] Dzunbxtdgp2104 [place] [address]Dr. Farhat Leal Bilirubin [Mass/Vol] 0.8 mg/dL Normal 0.2-1.0 [facility] Comment on above: Performed By: #### B WIRE INSPECTOR, CMP, CRP ####[facility] Xszwwtsgnh9733 [place] [address]Dr. Farhat Leal Calcium [Mass/Vol] 8.4 mg/dL Critically low 8.5-10.1 Th e [facility] Comment on above: Performed By: #### B WIRE INSPECTOR, CMP, CRP ####[facility] Sxxhyjmuko8636 [place] [address]Dr. Farhat Leal Chloride [Moles/Vol] 96 mmol/L Critically low 98-107 [facility] Comment on above: Performed By: #### B WIRE INSPECTOR, CMP, CRP ####[facility] Njvsc[address]ffi[address] [place], [place] [address]Dr. Madelynlorri Leal CO2 [Moles/Vol] 24.8 mmol/L Normal 21.0-32.0 [facility] Comment on above: Performed By: #### B WIRE INSPECTOR, CMP, CRP ####[facility] Nhyhayvwwa[address] [place], [place] [address]Dr. Madelynlorri Leal Creatinine [Mass/Vol] 1.36 mg/dL Critically high 0.70-1.30 [facility] Comment on above: Performed By: #### B WIRE INSPECTOR, CMP, CRP ####[facility] Cbaawnjmxr[address] [place], [place] [address]Dr. Madelynlorri Elvis EGFR-AF KAZAKH >60 Normal >=60 [facility] Comment on above: Performed By: #### B WIRE INSPECTOR, CMP, CRP ####[facility] Rdruowjqmu[address] [place], [place] [address]Dr. Madelynlorri Leal EGFR-NON AF KAZAKH 51 mL/min/1.73m2 Critically low >=60 [facility] Comment on above: Performed By: #### B WIRE INSPECTOR, CMP, CRP ####[facility] Ucddwpohib3239[address] [place], [place] [address]Dr. Farhat Leal Globulin (S) [Mass/Vol] 4.1 g/dL Normal [facility] Comment on above: Performed By: #### B WIRE INSPECTOR, CMP, CRP ####[facility] Grfkmojzdv[address] [place], [place] [address]Dr. Farhat Leal Glucose [Mass/Vol] 204 mg/dL Critically high 74-106 T [facility] Comment on above: Performed By: #### B WIRE INSPECTOR, CMP, CRP ####[facility] Mbfiodwvvs4670 [place] [address]Dr. Farhat Leal Potassium [Moles/Vol] 4.3 mmol/L Normal 3.5-5.1 [facility] Comment on above: Performed By: #### B WIRE INSPECTOR, CMP, CRP ####[facility] Zuwblailml5332 [place] [address]Dr. Farhat Leal Protein [Mass/Vol] 5.7 g/dL Critically low 6.4-8.[address] [facility] Comment on above: Performed By: #### B WIRE INSPECTOR, CMP, CRP ####[facility] Mgbmzfdbif8381 [place] [address]Dr. Farhat Leal Sodium [Moles/Vol] 129 mmol/L Critically low 136-[address] [facility] Comment on above: Performed By: #### B WIRE INSPECTOR, CMP, CRP ####[facility] Fdcaertcvs[address] [place], [place] [address]Dr. Farhat Leal Urea nitrogen [Mass/Vol] 41.0 mg/dL Critically high 7.0-18.0 [facility] Comment on above: Performed By: #### B WIRE INSPECTOR, CMP, CRP ####[facility] Oxvjklgijb[address] [place], [place] [address]Dr. Farhat Leal Urea nitrogen/Creatinine [Mass ratio] 30.1 mg/mg Normal [facility] Comment on above: Performed By: #### B WIRE INSPECTOR, CMP, CRP ####[facility] Bbuoyyzlrz[address] [place], [place] [address]Dr. Farhat Leal PROTIMEon 11-24-2021 INR Coag (PPP) [Relative time] 2.20 {INR} Normal [facility] Comment on above: Performed By: #### P T ####[facility] Yjyhfrejjx[address] [place], [place] [address]Dr. Farhat Leal INR GUIDELINES SEE BELOW Normal [facility] Comment on above: Result Comment: MALINA RED INR: 2.0 - 3.0 CONDITIONS NOT LISTED BELOW 2.5 - 3.5 FOR PROSTHETIC HEART VALVE REPLACEMENT 2.5 - 3.5 RECURRENT THROMBOSIS Performed By: #### P T ####[facility] Lbeyjwrfew[address] [place], [place] [address]Dr. Farhat Leal PT Coag (PPP) [Time] 22.6 s Critically high 9.0-11.6 [facility] Comment on above: Performed By: #### P T ####[facility] Xrxowscxvt7145 [place] [address]Dr. Farhat Elvis SED RATE [facility] 2021 SED RATE 80 mm/hr Critically high <=20 The [facility] Comment on above: Performed By: #### S EDR ####[facility] Rzgsnklgto0383 [place] [address]Dr. Farhat Elvis BLOOD CULTURE ID PANELon A. baumannii Not detected Normal NOT DETECTED The [facility] Comment on above: Performed By: #### B CID2 ####[facility] Mtkkxnaemm7922 [place] [address]Dr. Madelynlorri Leal Bacteriodes fragilis Not detected Normal NOT DETECTED The [facility] Comment on above: Performed By: #### B CID2 ####[facility] Qqgtabdzvc0544 [place] [address]Dr. Farhat Elvis BCID CONTROLS PASSED Normal The [facility] Comment on above: Performed By: #### B CID2 ####[facility] Svcuckrdtv8685 [place] [address]Dr. Farhat Elvis BCIDBTHD BLOOD CULTURE BOTTLE INFORMATION Normal The [facility] Comment on above: Performed By: #### B CID2 ####[facility] Zfuyxssbgo[address] [place], [place] [address]Dr. Farhat Elvis BCIDHD1 ANTIMICROBIAL RESISTANCE GENES Normal The [facility] Comment on above: Performed By: #### B CID2 ####[facility] Nbpsughrdz0777 [place] [address]Dr. Madelynlorri Leal BCIDHD2 SEE BELOW Normal [facility] Comment on above: Result Comment: Note : Antimicrobial resitance can occur via multiple mechanisms. A Not Detected result for the [employer] antomicrobial resistance gene assays does not indicate antimicrobial susceptibility. Subculturing is required for species identification and susceptibility testing of isolates. Performed By: #### B CID2 ####[facility] Mrneektyqu4112 [place] [id number]. Farhat Leal BCIDHD3 Positive Normal [facility] Comment on above: Performed By: #### B CID2 ####[facility] Achiuksadr9383 [place] [id number]. Yilorri Leal BCIDHD4 Negative Normal [facility] Comment on above: Performed By: #### B CID2 ####[facility] Yymzmyqjtf0728 [place] [id number]. Farhat Leal BCIDHD5 YEAST Normal The [facility] Comment on above: Performed By: #### B CID2 ####[facility] Vdmslvosnm4489 [place] [address]Dr. Farhat Leal Bottle Set: Set 1 Normal [facility] Comment on above: Performed By: #### B CID2 ####[facility] Dtdnwxhhzb7721 [place] [address]Dr. Farhat Leal Bottle: Aerobic Normal [facility] Comment on above: Performed By: #### B CID2 ####[facility] Axkxabvpze4855 [place] [address]Dr. Farhat [facility] C. neoformans/gattii Not detected Normal NOT DETECTED The [facility] Comment on above: Performed By: #### B CID2 ####[facility] Nqerbcljlm[address] [place], [place] [address]Dr. Yilorri Leal Disha albicans Not detected Normal NOT DETECTED The [facility] Comment on above: Performed By: #### B CID2 ####[facility] Lvobiwpfpp3910 [place] [address]Dr. Yilorri Leal Disha auris Not detected Normal NOT DETECTED The [facility] Comment on above: Performed By: #### B CID2 ####[facility] Wkwwbsyhyr1037 [place] [address]Dr. Farhat Leal Disha glabrata Not detected Normal NOT DETECTED The [facility] Comment on above: Performed By: #### B CID2 ####[facility] Crasihbyvy8143 [place] [address]Dr. Farhat Leal Disha Krusei Not detected Normal NOT DETECTED The [facility] Comment on above: Performed By: #### B CID2 ####[facility] Jdlyikpvxk4727 [place] [address]Dr. Yilan Leal Disha Parapsilosis Not detected Normal NOT DETECTED The [facility] Comment on above: Performed By: #### B CID2 ####[facility] Jskbwvjvcj3791 [place] [address]Dr. Yilan Leal Disha Tropicalis Not detected Normal NOT DETECTED [facility] Comment on above: Performed By: #### B CID2 ####[facility] Cxllzczjfj[address] [place], [place] [address]Dr. Farhat Leal CTX-M Resistant Gene Not Applicable Normal NOT DETECTE D [facility] Comment on above: Performed By: #### B CID2 ####[facility] Rrgjolmnez[address] [place], [place] [address]Dr. Yilorri Leal E. Cloacae complex Not detected Normal NOT DETECTED [facility] Comment on above: Performed By: #### B CID2 ####[facility] Tigankssyr89[address] [place], [place] [address]Dr. Yilan Leal E. faecalis Not detected Normal NOT DETECTED The [facility] Comment on above: Performed By: #### B CID2 ####[facility] Cmnusyoirk52[address] [place], [place] [address]Dr. Yilorri Leal E. faecium Not detected Normal NOT DETECTED The [facility] Comment on above: Performed By: #### B CID2 ####[facility] Gtidhxywqz[address] [place], [place] [address]Dr. Yilan Leal Enterobacteriaceae Not detected Normal NOT DETECTED [facility] Comment on above: Performed By: #### B CID2 ####[facility] Zngofcmrts[address] [place], [place] [address]Dr. Yilan Leal Escherichia coli Not detected Normal NOT DETECTED The [facility] Comment on above: Performed By: #### B CID2 ####[facility] Sxqjsdmsvn20[address] [place], [place] [address]Dr. Yilan Leal H. influenzae Not detected Normal NOT DETECTED The [facility] Comment on above: Performed By: #### B CID2 ####[facility] Hohgkxozrr1013 [place] [id number]. Farhat Leal IMP Resistant Gene Not Applicable Normal NOT DETECTED The [facility] Comment on above: Performed By: #### B CID2 ####[facility] Zpqumzympl[address] [place], [place] [address]Dr. Farhat Leal K. oxytoca Not detected Normal NOT DETECTED The [facility] Comment on above: Performed By: #### B CID2 ####[facility] Vhlcgkxxsl[address] [place], [place] [address]Dr. Farhat Leal K. pneumoniae Not detected Normal NOT DETECTED The [facility] Comment on above: Performed By: #### B CID2 ####[facility] Gbtnlvuzci69[address] [place], [place] [address]Dr. Farhat Leal Klebsiella aerogenes Not detected Normal NOT DETECTED The [facility] Comment on above: Performed By: #### B CID2 ####[facility] Qvbpgtirsc0112[address] [place], [place] [address]Dr. Farhat Leal KPC Resistant Gene Not Applicable Normal NOT DETECTED The [facility] Comment on above: Performed By: #### B CID2 ####[facility] Igyjjuqibd187[address] [place], [place] [address]Dr. Madelynlorri Elvis List. monocytogenes Not detected Normal NOT DETECTED [facility] Comment on above: Performed By: #### B CID2 ####[facility] Demkbqbawi39[address] [place], [place] [address]Dr. Farhat Leal Mcr-1 Resistant Gene Not Applicable Normal NOT DETECTE D The [facility] Comment on above: Performed By: #### B CID2 ####[facility] Kdtjaijqhj3226 [place] [address]Dr. Madelynlan Elvis mecA/C Not Applicable Normal NOT DETECTED The [facility] Comment on above: Performed By: #### B CID2 ####[facility] Ijjmidrdrv3948 [place] [address]Dr. Farhat Leal mecA/C MREJ Detected Abnormal NOT DETECTED The [facility] Comment on above: Performed By: #### B CID2 ####[facility] Ejnhtnxblo27[address] [place], [place] [address]Dr. Farhat Leal N. meningitidis Not detected Normal NOT DETECTED The [facility] Comment on above: Performed By: #### B CID2 ####[facility] Zmlypwkvkv[address] [place], [place] [address]Dr. Farhat Leal NDM Resistant Gene Not Applicable Normal NOT DETECTED The [facility] Comment on above: Performed By: #### B CID2 ####[facility] Evbxeiphzd[address] [place], [place] [address]Dr. Farhat Leal Oxa-48-like Not Applicable Normal NOT DETECTED The [facility] Comment on above: Performed By: #### B CID2 ####[facility] Xyvgwfaofy6494[address] [place], [place] [address]Dr. Farhat Leal Proteus Not detected Normal NOT DETECTED The [facility] Comment on above: Performed By: #### B CID2 ####[facility] Jkabrqtpxu86[address] [place], [place] [address]Dr. Farhat Leal Pseud. aeruginosa Not detected Normal NOT DETECTED The [facility] Comment on above: Performed By: #### B CID2 ####[facility] Fkunukefth[address] [place], [place] [address]Dr. Farhat Leal S. maltophilia Not detected Normal NOT DETECTED The [facility] Comment on above: Performed By: #### B CID2 ####[facility] Hvoavkieht85[address] [place], [place] [address]Dr. Farhat Leal Salmonella Not detected Normal NOT DETECTED The [facility] Comment on above: Performed By: #### B CID2 ####[facility] Azwdtyjfep3965[address] [place], [place] [address]Dr. Farhat Leal Seratia marcescens Not detected Normal NOT DETECTED [facility] Comment on above: Performed By: #### B CID2 ####[facility] Qmaggoften230[address] [place], [place] [address]Dr. Farhat Leal Site: Rt Hand Normal The [facility] Comment on above: Performed By: #### B CID2 ####[facility] Xdxnfbyswm[address] [place], [place] [address]Dr. Farhat Leal Staph. aureus Detected Abnormal NOT DETECTED The [facility] Comment on above: Performed By: #### B CID2 ####[facility] Tmkqhajksi0528 [place] [address]Dr. Farhat Leal Staph. epidermidis Not detected Normal NOT DETECTED [facility] Comment on above: Performed By: #### B CID2 ####[facility] Kbkqtrakpm[address] [place], [place] [address]Dr. Farhat Leal Staph. lugdunensis Not detected Normal NOT DETECTED [facility] Comment on above: Performed By: #### B CID2 ####[facility] Zqchrbiyjt[address] [place], [place] [address]Dr. Farhat Leal Staphylococcus Detected Abnormal NOT DETECTED The [facility] Comment on above: Performed By: #### B CID2 ####[facility] Cbbsrrfnan[address] [place], [place] [address]Dr. Farhat Leal Strep. agalactiae Not detected Normal NOT DETECTED The [facility] Comment on above: Performed By: #### B CID2 ####[facility] Rpxvcqfqmn[address] [place], [place] [address]Dr. Farhat Leal Strep. pneumoniae Not detected Normal NOT DETECTED The [facility] Comment on above: Performed By: #### B CID2 ####[facility] Rxfkfetxkc7[address] [place], [place] [address]Dr. Farhat Leal Strep. pyogenes Not detected Normal NOT DETECTED The [facility] Comment on above: Performed By: #### B CID2 ####[facility] Vziaojponl[address] [place], [place] [address]Dr. Farhat Leal Streptococcus Not detected Normal NOT DETECTED The [facility] Comment on above: Performed By: #### B CID2 ####[facility] Jrpjjwqbro3398[address] [place], [place] [address]Dr. Farhat Leal Teodoro/B Resist. Gene Not Applicable Normal NOT DETECTED The [facility] Comment on above: Performed By: #### B CID2 ####[facility] Qfwriooket[address] [place], [place] [address]Dr. Farhat Leal VIM Resistant Gene Not Applicable Normal NOT DETECTED The [facility] Comment on above: Performed By: #### B CID2 ####[facility] Vtivuywtnf7248 [place] [address]Dr. Farhat Leal BNPon 11-23-2021 Natriuretic peptide B (Bld) [Mass/Vol] 14993.0 pg/mL Critically high <=1,800.0 The [facility] Comment on above: Performed By: #### C MP, CMADM, BNP ####[facility] Izpjkqgyhf7399 [place] [address]Dr. Farhat Leal CARDIAC AMANDA ADMITon 022 CK [Catalytic activity/Vol] 41 U/L Normal 39-308 [facility] Comment on above: Performed By: #### C MP, CMADM, BNP ####[facility] Zoymckrfkz4980 [place] [address]Dr. Farhat Leal CK.MB [Mass/Vol] 0.98 ng/mL Normal <=3.60 The [facility] Comment on above: Performed By: #### C MP, CMADM, BNP ####[facility] Yoijvhvunq8387 [place] [address]Dr. Farhat Leal HSTROP 30.1 pg/mL Normal 4.0-76.1 The [facility] Comment on above: Result Comment: CUT- OFF POINTS HAVE BEEN ESTABLISHED BASED ON THE FOURTH UNIVERSAL DEFINITIONS OF MYOCARDIALINFARCTION. THE UPPER REFERENCE LIMIT (URL) OF TROPONIN, DEFINED THE 99TH PERCENTILE OFcTnI DISTRIBUTION IN A REFERENCE POPULATION, HAS BEEN CONFIRMED THE DECISION THRESHOLDFOR WY DIAGNOSIS. Performed By: #### C MP, CMADM, BNP ####[facility] Qzxfmsiyes1154 [place] [address]Dr. Farhat Leal VALERIA 160 ng/mL Critically high 16-96 The [facility] Comment on above: Performed By: #### C MP, CMADM, BNP ####[facility] Xyiieahken5592 [place] [address]Dr. Farhat Leal CBC AUTO DIFFon 11-23-2021 BASO # 0.0 103/ul Normal 0.0-0.1 The [facility] Comment on above: Performed By: #### C BC ####[facility] Pqyzdbxbsn7394 [place] [id number]. Farhat Leal Basophils/100 WBC (Bld) 0.2 % Normal 0.2-2.0 The [facility] Comment on above: Performed By: #### C BC ####[facility] Hqkytqlazg4095 [place] [id number]. Farhat Leal EO # 0.0 103/ul Normal 0.0-0.7 The [facility] Comment on above: Performed By: #### C BC ####[facility] [facility] [address] [place], [place] [id number]. Farhat Leal Eosinophils/100 WBC (Bld) 0.1 % Critically low 0.9-7.0 [facility] Comment on above: Performed By: #### C BC ####[facility] Fogcycgwsm[address] [place], [place] [address]Dr. Farhat Leal Erythrocyte distribution width (RBC) [Ratio] 13.4 % Normal 11.0-15.0 [facility] Comment on above: Performed By: #### C BC ####[facility] Bhcyrqhkas[address] [place], [place] [address]Dr. Farhat Leal Hematocrit (Bld) [Volume fraction] 31.6 % Critically low 42.0-54.0 [facility] Comment on above: Performed By: #### C BC ####[facility] Qcbvalblaz6[address] [place], [place] [address]Dr. Farhta Leal Hemoglobin (Bld) [Mass/Vol] 10.4 g/dL Critically low 14.0-18.0 [facility] Comment on above: Performed By: #### C BC ####[facility] Mhrlndkvic[address] [place], [place] [address]Dr. Farhat Leal IG # 0.11 10e3/ul Critically high 0.00-0.03 [facility] Comment on above: Performed By: #### C BC ####[facility] Fgzorzavgk[address] [place], [place] [address]Dr. Farhat Leal IG % 0.7 % Critically high 0.0-0.5 [facility] Comment on above: Performed By: #### C BC ####[facility] Xhbvhobywl8[address] [place] [id number]. Farhat Leal LYMPH # 0.5 103/ul Critically low 1.2-3.8 The [facility] Comment on above: Performed By: #### C BC ####[facility] Xbmvnleplk0783 [place] [id number]. Farhat Leal Lymphocytes/100 WBC (Bld) 2.8 % Critically low 20.5-60.0 [facility] Comment on above: Performed By: #### C BC ####[facility] Ntihvbgeqc0885 [place] [id number]. Farhat Leal MANUAL DIFF REQ NO Normal [facility] Comment on above: Performed By: #### C BC ####[facility] Zacurcgvzn9954 [place] [phone]. Farhat Leal MCH (RBC) [Entitic mass] 29.8 pg Normal 25.9-34.0 [facility] Comment on above: Performed By: #### C BC ####[facility] Zvqqslsqmi4007 [place] [phone]. Farhat Leal MCHC (RBC) [Mass/Vol] 32.9 g/dL Normal 29.9-35.2 [facility] Comment on above: Performed By: #### C BC ####[facility] Aignwvuptn7525 [place] [id number]. Farhat Leal MCV (RBC) [Entitic vol] 90.5 fL Normal 80.0-94.0 [facility] Comment on above: Performed By: #### C BC ####[facility] Aojvzbfgmm3[address] [place] [address]Dr. Farhat Leal MONO # 1.3 103/ul Critically high 0.3-0.8 [facility] Comment on above: Performed By: #### C BC ####[facility] Pmlrqthnpr0229 [place] [phone]. Farhat Leal Monocytes/100 WBC (Bld) 8.3 % Normal 1.7-12.0 [facility] Comment on above: Performed By: #### C BC ####[facility] Pjfkoqvepw9534 [place], [place] [address]Di. Farhat Leal NEUT # 13.9 103/ul Critically high 1.4-6.5 [facility] Comment on above: Performed By: #### C BC ####[facility] Lxpleyuzgf1885 [place], [place] [address]Re. Farhat Leal Neutrophils/100 WBC (Bld) 87.9 % Critically high 43.0-75.0 [facility] Comment on above: Performed By: #### C BC ####[facility] Mrqrdlqtgi2225 [place] [phone]. Farhat Leal Platelet mean volume (Bld) [Entitic vol] 9.3 fL Critically low 9.5-13.5 [facility] Comment on above: Performed By: #### C BC ####[facility] Ayasgllshq6687 [place] [phone]. Farhat Leal PLT 390 103/ul Normal 150-450 [facility] Comment on above: Performed By: #### C BC ####[facility] Jjcrdfzpsb0382 [place] [phone]. Farhat Leal RBC 3.49 106/ul Critically low 4.70-6.10 [facility] Comment on above: Performed By: #### C BC ####[facility] Jhsvtyxdbs0653 [place] [phone]. Farhat Leal WBC 15.9 103/ul Critically high 4.0-11.0 [facility] Comment on above: Performed By: #### C BC ####[facility] Rqtjbhssba4947 [place] [phone]. Farhat Leal CT HEAD WO CONon 11-23-2021 CT HEAD WO CON Normal The [facility] CULTURE BLOODon 11-23-2021 Microscopic examination of blood, culture Culture Observations: NO GROWTH AT 5 DAYS. Normal [facility] Comment on above: Performed By: #### B LDCX2 ####[facility] Zgzfcouygs7766 [place] [phone]. Farhat Leal Covid-19 PCR (CVDTBH)on SARS-CoV-2 (COVID-19) RNA JOSH+probe Ql (Unsp spec) Not detected Normal NOT DETECTED [facility] Comment on above: Result Comment: When [...] for this test is supported by the [place] of Health and Human Service's declaration that [...] be used). Performed By: #### C VDTBH ####[facility] Aeyfjbyavk2223 [place] [address]DrSkylar Leal LACTATE/LACTIC ACIDon 2021 Lactate [Moles/Vol] 1.3 mmol/L Normal 0.4-1.9 [facility] Comment on above: Performed By: #### L ACT ####[facility] Ugoirvdfuf[address] [place], [place] [address]Dr. Farhat Leal Lactate [Moles/Vol] 1.3 mmol/L Normal 0.4-1.9 [facility] Comment on above: Performed By: #### L ACT ####[facility] Gzkuaqqmwz[address] [place], [place] [address]Dr. Farhat Leal POINT OF CARE GLUCOSEon Glucose [Mass/Vol] 252 mg/dL Critically high 74-106 [facility] Comment on above: Performed By: #### P OCGLUC ####[facility] Sgtktmzqtv[address] [place], [place] [address]Dr. Farhat Leal PROF 14(COMP METB)on 022 Albumin [Mass/Vol] 1.6 g/dL Critically low 3.4-5.[address] [facility] Comment on above: Performed By: #### C MP, CMADM, BNP ####[facility] Pobijvpysr6398 [place] [phone]. Farhat Leal Albumin/Globulin [Mass ratio] 0.4 {ratio} Normal [facility] Comment on above: Performed By: #### C MP, CMADM, BNP ####[facility] Wocbkfxazw2756 [place] [address]Dr. Farhat Leal ALP [Catalytic activity/Vol] 98 U/L Normal 46-116 [facility] Comment on above: Performed By: #### C MP, CMADM, BNP ####[facility] Kauwvmdjcb3001 [place] [address]Dr. Farhat Leal ALT [Catalytic activity/Vol] 52 U/L Normal 16-63 [facility] Comment on above: Performed By: #### C MP, CMADM, BNP ####[facility] Ivvulckvve3902 [place] [address]Dr. Farhat Leal Anion gap [Moles/Vol] 9.8 mmol/L Normal [facility] Comment on above: Performed By: #### C MP, CMADM, BNP ####[facility] Ebtylqvorm7837 [place] [address]Dr. Farhat Leal AST [Catalytic activity/Vol] 122 U/L Critically high 15-37 [facility] Comment on above: Performed By: #### C MP, CMADM, BNP ####[facility] Mjahurpjyr0150 [place] [address]Dr. Farhat Leal Bilirubin [Mass/Vol] 0.7 mg/dL Normal 0.2-1.0 [facility] Comment on above: Performed By: #### C MP, CMADM, BNP ####[facility] Xiakjviytq9571 [place] [address]Dr. Farhat Leal Calcium [Mass/Vol] 8.6 mg/dL Normal 8.5-10.1 [facility] Comment on above: Performed By: #### C MP, CMADM, BNP ####[facility] Mxptdkzzit4791 [place] [address]Dr. Farhat Leal Chloride [Moles/Vol] 95 mmol/L Critically low 98-107 [facility] Comment on above: Performed By: #### C MP, CMADM, BNP ####[facility] Tmtdriradc1524 [place] [address]Dr. Farhat Leal CO2 [Moles/Vol] 29.6 mmol/L Normal 21.0-32.0 [facility] Comment on above: Performed By: #### C MP, CMADM, BNP ####[facility] Cgrpqlpboy[address] [place], [place] [address]Dr. Farhat Leal Creatinine [Mass/Vol] 1.49 mg/dL Critically high 0.70-1.30 [facility] Comment on above: Performed By: #### C MP, CMADM, BNP ####[facility] Opmtwbearo14[address] [place], [place] [address]Dr. Farhat Leal EGFR-AF KAZAKH 55 mL/min/1.73m2 Critically low >=60 [facility] Comment on above: Performed By: #### C MP, CMADM, BNP ####[facility] Nxzirozaiv12[address] [place], [place] [address]Dr. Farhat Leal EGFR-NON AF KAZAKH 46 mL/min/1.73m2 Critically low >=60 [facility] Comment on above: Performed By: #### C MP, CMADM, BNP ####[facility] Whcaxdxzhp2406 [place] [address]Dr. Farhat Leal Globulin (S) [Mass/Vol] 4.3 g/dL Normal [facility] Comment on above: Performed By: #### C MP, CMADM, BNP ####[facility] Iithlsmmtc[address] [place], [place] [address]Dr. Farhat Leal Glucose [Mass/Vol] 213 mg/dL Critically high 74-106 [facility] Comment on above: Performed By: #### C MP, CMADM, BNP ####[facility] Umwrjrlsdz9723 [place] [address]Dr. Farhat Leal Potassium [Moles/Vol] 4.4 mmol/L Normal 3.5-5.1 [facility] Comment on above: Performed By: #### C MP, CMADM, BNP ####[facility] Wctfnysrak2663 [place] [address]Dr. Madelynlorri Leal Protein [Mass/Vol] 5.9 g/dL Critically low 6.4-8.[address] [facility] Comment on above: Performed By: #### C MP, CMADM, BNP ####[facility] Oqvzhlsnap4808 [place] [address]Dr. Madelynlorri Leal Sodium [Moles/Vol] 130 mmol/L Critically low 136-[address] [facility] Comment on above: Performed By: #### C MP, CMADM, BNP ####[facility] Kogggjuoca[address] [place], [place] [address]Dr. Farhat Leal Urea nitrogen [Mass/Vol] 46.0 mg/dL Critically high 7.0-18.0 [facility] Comment on above: Performed By: #### C MP, CMADM, BNP ####[facility] Qpyalcanzq6360 [place] [address]Dr. Farhat Leal Urea nitrogen/Creatinine [Mass ratio] 30.9 mg/mg Normal [facility] Comment on above: Performed By: #### C MP, CMADM, BNP ####[facility] Lejsyvuipr1007[address] [place], [place] [address]Dr. Farhat Leal PROTIMEon 11-23-2021 INR Coag (PPP) [Relative time] 2.55 {INR} Normal [facility] Comment on above: Performed By: #### P TT, PT ####[facility] Aoijeitncv[address] [place], [place] [address]Dr. Farhat Leal INR GUIDELINES SEE BELOW Normal [facility] Comment on above: Result Comment: MLAINA RED INR: 2.0 - 3.0 CONDITIONS NOT LISTED BELOW 2.5 - 3.5 FOR PROSTHETIC HEART VALVE REPLACEMENT 2.5 - 3.5 RECURRENT THROMBOSIS Performed By: #### P TT, PT ####[facility] Fuuehazawb1032 [place] [phone]. Farhat Leal PT Coag (PPP) [Time] 25.9 s Critically high 9.0-11.6 [facility] Comment on above: Performed By: #### P TT, PT ####[facility] Mhmruuazvq4285 [place] [address]Dr. Farhat Leal PTTon 11-23-2021 aPTT Coag (Bld) [Time] 39.9 s Critically high 22.3-36. 2 [facility] Comment on above: Performed By: #### P TT, PT ####[facility] Bzxuzcjwgp[address] [place], [place] [address]Dr. Farhat Leal XR CHEST 1 Von 11-23-2021 XR CHEST 1 V Normal [facility] XR HEEL RT 2Von 11-23-2021 XR HEEL RT 2V Normal [facility] XR FOOT RT MIN 3 VIEWSon XR FOOT RT MIN 3 VIEWS Normal [facility] US ARTERY LEG RTon US ARTERY LEG RT Normal [facility] CBC AUTO DIFFon 09-24-2021 BASO # 0.1 103/ul Normal 0.0-0.1 [facility] Comment on above: Performed By: #### C BC ####[facility] Hejacqcbkb7202[address] [place], [place] [address]Dr. Farhat Leal Basophils/100 WBC (Bld) 0.7 % Normal 0.2-2.0 [facility] Comment on above: Performed By: #### C BC ####[facility] Tvexgxgoej407[address] [place], [place] [address]Dr. Farhat Leal EO # 0.3 103/ul Normal 0.0-0.7 [facility] Comment on above: Performed By: #### C BC ####[facility] Hfjtlxkngs5[address] [place], [place] [address]Dr. Farhat Leal Eosinophils/100 WBC (Bld) 3.9 % Normal 0.9-7.0 [facility] Comment on above: Performed By: #### C BC ####[facility] Xusfjwopxq4866[address] [place], [place] [address]Dr. Farhat Leal Erythrocyte distribution width (RBC) [Ratio] 12.6 % Normal 11.0-15.0 [facility] Comment on above: Performed By: #### C BC ####[facility] Mdwixnthlw3947 [place] [address]Dr. Farhat Leal Hematocrit (Bld) [Volume fraction] 38.9 % Critically low 42.0-54.0 [facility] Comment on above: Performed By: #### C BC ####[facility] Pywpodhqfe32[address] [place], [place] [address]Dr. Farhat Leal Hemoglobin (Bld) [Mass/Vol] 12.8 g/dL Critically low 14.0-18.0 [facility] Comment on above: Performed By: #### C BC ####[facility] Dbdaralyju7418[address] [place], [place] [address]Dr. Farhat Leal IG # 0.10 10e3/ul Critically high 0.00-0.03 [facility] Comment on above: Performed By: #### C BC ####[facility] Okrvxllcok488[address] [place], [place] [address]Dr. Madelynlorri Leal IG % 1.2 % Critically high 0.0-0.5 [facility] Comment on above: Performed By: #### C BC ####[facility] Lxkphmgaqt7968[address] [place], [place] [address]Dr. Farhat Leal LYMPH # 2.1 103/ul Normal 1.2-3.8 [facility] Comment on above: Performed By: #### C BC ####[facility] Gobrdfgjdw9938[address] [place], [place] [address]Dr. Farhat Leal Lymphocytes/100 WBC (Bld) 25.9 % Normal 20.5-60.0 [facility] Comment on above: Performed By: #### C BC ####[facility] Olhdrqxfhz[address] [place], [place] [address]Dr. Madelynlorri Leal MANUAL DIFF REQ NO Normal [facility] Comment on above: Performed By: #### C BC ####[facility] Kkocxilvcs6785 [place] [address]Dr. Farhat Leal MCH (RBC) [Entitic mass] 31.1 pg Normal 25.9-34.0 [facility] Comment on above: Performed By: #### C BC ####[facility] Rvlexltbdo[address] [place], [place] [address]Dr. Farhat Leal MCHC (RBC) [Mass/Vol] 32.9 g/dL Normal 29.9-35.2 [facility] Comment on above: Performed By: #### C BC ####[facility] Bcjrosmpru9244[address] [place], [place] [address]Dr. Farhat Leal MCV (RBC) [Entitic vol] 94.6 fL Critically high 80.0-94.0 [facility] Comment on above: Performed By: #### C BC ####[facility] Bxamsjbtwp8847[address] [place], [place] [address]Dr. Farhat Leal MONO # 1.2 103/ul Critically high 0.3-0.8 [facility] Comment on above: Performed By: #### C BC ####[facility] Ovbjmsttnz2837[address] [place], [place] [address]Dr. Farhat Leal Monocytes/100 WBC (Bld) 14.1 % Critically high 1.7-12.0 [facility] Comment on above: Performed By: #### C BC ####[facility] Glbwmlpneg[address] [place], [place] [address]Dr. Farhat Leal NEUT # 4.4 103/ul Normal 1.4-6.5 [facility] Comment on above: Performed By: #### C BC ####[facility] Ytsrateexk2665[address] [place], [place] [address]Dr. Farhat Elvis Neutrophils/100 WBC (Bld) 54.2 % Normal 43.0-75.0 [facility] Comment on above: Performed By: #### C BC ####[facility] Qggrhmxbfe2638[address] [place], [place] [address]Dr. Farhat Leal Platelet mean volume (Bld) [Entitic vol] 9.9 fL Normal 9.5-13.5 [facility] Comment on above: Performed By: #### C BC ####[facility] Wvcufxhgeo5962 [place] [phone]. Farhat Leal PLT 224 103/ul Normal 150-450 [facility] Comment on above: Performed By: #### C BC ####[facility] Ymndsmpwvv2118 [place] [phone]. Farhat Leal RBC 4.11 106/ul Critically low 4.70-6.10 [facility] Comment on above: Performed By: #### C BC ####[facility] Ahfiszbmws6806 [place] [phone]. Farhat Leal WBC 8.2 103/ul Normal 4.0-11.0 [facility] Comment on above: Performed By: #### C BC ####[facility] Gzizszfavd7225 [place] [address]Dr. Madelynlorri Leal PROF CHEM 8 (BAS METB)on Anion gap [Moles/Vol] 9.6 mmol/L Normal [facility] Comment on above: Performed By: #### B MP ####[facility] Apnzvauwyh8623 [place] [address]Dr. Farhat Elvis Calcium [Mass/Vol] 8.6 mg/dL Normal 8.5-10.1 [facility] Comment on above: Performed By: #### B MP ####[facility] Ixlakdngsw5070 [place] [address]Dr. Farhat Elvis Chloride [Moles/Vol] 94 mmol/L Critically low 98-107 [facility] Comment on above: Performed By: #### B MP ####[facility] Ntifenduoe0063 [place] [phone]. Madelynlorir Leal CO2 [Moles/Vol] 28.1 mmol/L Normal 21.0-32.0 [facility] Comment on above: Performed By: #### B MP ####[facility] Qctsqunzrj1645 [place] [phone]. Farhat Elvis Creatinine [Mass/Vol] 1.91 mg/dL Critically high 0.70-1.30 [facility] Comment on above: Performed By: #### B MP ####[facility] Btldpvvdoq0914 [place] [phone]. Madelynlorri Elvis EGFR-AF KAZAKH 42 mL/min/1.73m2 Critically low >=60 [facility] Comment on above: Performed By: #### B MP ####[facility] Fkxizwvfys4597 [place] [phone]. Farhat Leal EGFR-NON AF KAZAKH 34 mL/min/1.73m2 Critically low >=60 [facility] Comment on above: Performed By: #### B MP ####[facility] Wgnbfejfuw1172 [place] [phone]. Farhat Leal Glucose [Mass/Vol] 314 mg/dL Critically high 74-106 T [facility] Comment on above: Performed By: #### B MP ####[facility] Dnstjkpzfz8[address] [place], [place] [address]Dr. Farhat Leal Potassium [Moles/Vol] 4.7 mmol/L Normal 3.5-5.1 [facility] Comment on above: Performed By: #### B MP ####[facility] Ppayfduprg6134[address] [place], [place] [address]Dr. Farhat Leal Sodium [Moles/Vol] 127 mmol/L Critically low 136-[address] [facility] Comment on above: Performed By: #### B MP ####[facility] Ntenbsrdjj[address] [place], [place] [address]Dr. Farhat Leal Urea nitrogen [Mass/Vol] 79.0 mg/dL Critically high 7.0-18.0 [facility] Comment on above: Result Comment: repe ated Performed By: #### B MP ####[facility] Imlalsbvdv75[address] [place], [place] [address]Dr. Farhat Leal Urea nitrogen/Creatinine [Mass ratio] 41.4 mg/mg Normal [facility] Comment on above: Performed By: #### B MP ####[facility] Mxsvplmmmu8915[address] [place], [place] [address]Dr. Farhat Leal PTT HEPARIN MONITORon 2021 aPTT Coag (Bld) [Time] 42.7 s Normal 39.5-54.2 Th e [facility] Comment on above: Performed By: #### P TTHEP ####[facility] Pgpdmkpunn2427 [place] [address]Dr. Farhat Leal aPTT Coag (Bld) [Time] 56.7 s Critically high 39.5-54. 2 [facility] Comment on above: Performed By: #### P TTHEP ####[facility] Ervgexssco64[address] [place], [place] [address]Dr. Farhat Leal CBC AUTO DIFFon 09-23-2021 BASO # 0.1 103/ul Normal 0.0-0.1 [facility] Comment on above: Performed By: #### C BC ####[facility] Aaqkzrhipg039[address] [place], [place] [address]Dr. Farhat Leal Basophils/100 WBC (Bld) 0.6 % Normal 0.2-2.0 [facility] Comment on above: Performed By: #### C BC ####[facility] Ojsganrjqm09[address] [place], [place] [address]Dr. Farhat Leal EO # 0.2 103/ul Normal 0.0-0.7 [facility] Comment on above: Performed By: #### C BC ####[facility] Jjayzjujnk7[address] [place], [place] [address]Dr. Farhat Leal Eosinophils/100 WBC (Bld) 2.6 % Normal 0.9-7.0 [facility] Comment on above: Performed By: #### C BC ####[facility] Zutnvovhmi7[address] [place], [place] [address]Dr. Farhat Leal Erythrocyte distribution width (RBC) [Ratio] 12.4 % Normal 11.0-15.0 [facility] Comment on above: Performed By: #### C BC ####[facility] Cafbvxkzpw8129[address] [place], [place] [address]Dr. Farhat Leal Hematocrit (Bld) [Volume fraction] 38.4 % Critically low 42.0-54.0 [facility] Comment on above: Performed By: #### C BC ####[facility] Dscnzcqrzg3575 [place] [address]Dr. Farhat Leal Hemoglobin (Bld) [Mass/Vol] 12.8 g/dL Critically low 14.0-18.0 [facility] Comment on above: Performed By: #### C BC ####[facility] Rbmxjrhwem0515 [place] [phone]. Farhat Leal IG # 0.06 10e3/ul Critically high 0.00-0.03 [facility] Comment on above: Performed By: #### C BC ####[facility] Ozwaiqotus6983 [place] [phone]. Farhat Leal IG % 0.8 % Critically high 0.0-0.5 [facility] Comment on above: Performed By: #### C BC ####[facility] Pabmyfezbw[address] [place], [place] [address]Dr. Farhat Leal LYMPH # 1.5 103/ul Normal 1.2-3.8 [facility] Comment on above: Performed By: #### C BC ####[facility] Sobxwhbbks6[address] [place], [place] [address]Dr. Farhat Leal Lymphocytes/100 WBC (Bld) 19.7 % Critically low 20.5-60.0 [facility] Comment on above: Performed By: #### C BC ####[facility] Supqdmfztd4915 [place] [address]Dr. Farhat Leal MANUAL DIFF REQ NO Normal [facility] Comment on above: Performed By: #### C BC ####[facility] Oiawveskkh0161 [place] [address]Dr. Farhat Leal MCH (RBC) [Entitic mass] 31.6 pg Normal 25.9-34.0 [facility] Comment on above: Performed By: #### C BC ####[facility] Vlxhxozodk17[address] [place], [place] [address]Dr. Farhat Leal MCHC (RBC) [Mass/Vol] 33.3 g/dL Normal 29.9-35.2 [facility] Comment on above: Performed By: #### C BC ####[facility] Qiofvvlhot6196 [place] [phone]. Farhat Leal MCV (RBC) [Entitic vol] 94.8 fL Critically high 80.0-94.0 [facility] Comment on above: Performed By: #### C BC ####[facility] Svopqbexwx1285 [place] [phone]. Farhat Leal MONO # 1.0 103/ul Critically high 0.3-0.8 [facility] Comment on above: Performed By: #### C BC ####[facility] Gvgkolgceh7917 [place] [phone]. Farhat Leal Monocytes/100 WBC (Bld) 13.0 % Critically high 1.7-12.0 [facility] Comment on above: Performed By: #### C BC ####[facility] Zcqmftnblf[address] [place], [place] [address]Dr. Farhat Leal NEUT # 4.9 103/ul Normal 1.4-6.5 [facility] Comment on above: Performed By: #### C BC ####[facility] Ylfascqrwe7[address] [place], [place] [address]Dr. Farhat Leal Neutrophils/100 WBC (Bld) 63.3 % Normal 43.0-75.0 [facility] Comment on above: Performed By: #### C BC ####[facility] Mdyzsktbak8315 [place] [phone]. Farhat Leal Platelet mean volume (Bld) [Entitic vol] 10.7 fL Normal 9.5-13.5 [facility] Comment on above: Performed By: #### C BC ####[facility] Qnmurxumlb5102 [place] [phone]. Farhat Leal PLT 205 103/ul Normal 150-450 [facility] Comment on above: Performed By: #### C BC ####[facility] [address]lyupwlvw[address] [place], [place] [id number]. Farhat Leal RBC 4.05 106/ul Critically low 4.70-6.10 [facility] Comment on above: Performed By: #### C BC ####[facility] [address]sv[address] [place] [address]Dr. Farhat Elvis WBC 7.7 103/ul Normal 4.0-11.0 [facility] Comment on above: Performed By: #### C BC ####[facility] Bdowyhlsyu[address] [place], [place] [address]Dr. Madelynlorri Leal PROF CHEM 8 (BAS METB)on Anion gap [Moles/Vol] 15.5 mmol/L Normal [facility] Comment on above: Performed By: #### B MP ####[facility] Rsiqkcclsz[address] [place], [place] [address]Dr. Farhat Leal Calcium [Mass/Vol] 9.1 mg/dL Normal 8.5-10.1 [facility] Comment on above: Performed By: #### B MP ####[facility] Lwqnkgqvbk[address] [place], [place] [address]Dr. Farhat Leal Chloride [Moles/Vol] 92 mmol/L Critically low 98-107 [facility] Comment on above: Performed By: #### B MP ####[facility] Qbhyaihczj47[address] [place], [place] [address]Dr. Farhat Leal CO2 [Moles/Vol] 28.5 mmol/L Normal 21.0-32.0 [facility] Comment on above: Performed By: #### B MP ####[facility] Gvkyikpyip[address] [place], [place] [address]Dr. Farhat Leal Creatinine [Mass/Vol] 1.84 mg/dL Critically high 0.70-1.30 [facility] Comment on above: Performed By: #### B MP ####[facility] Yrdpbxbnjx4[address] [place], [place] [address]Dr. Farhat Leal EGFR-AF KAZAKH 44 mL/min/1.73m2 Critically low >=60 [facility] Comment on above: Performed By: #### B MP ####[facility] Zjnpyohjlr[address] [place], [place] [address]Dr. Farhat Leal EGFR-NON AF KAZAKH 36 mL/min/1.73m2 Critically low >=60 [facility] Comment on above: Performed By: #### B MP ####[facility] Xjbkbeqoje3[address] [place] [address]Dr. Farhat Leal Glucose [Mass/Vol] 267 mg/dL Critically high 74-106 T [facility] Comment on above: Performed By: #### B MP ####[facility] Zowrsgyjjs[address] [place] [address]Dr. Farhat Leal Potassium [Moles/Vol] 5.0 mmol/L Normal 3.5-5.1 [facility] Comment on above: Performed By: #### B MP ####[facility] Zkshdnayyy4[address] [place], [place] [address]Dr. Farhat Leal Sodium [Moles/Vol] 131 mmol/L Critically low 136-[address] [facility] Comment on above: Performed By: #### B MP ####[facility] Bzwmeqxqql[address] [place], [place] [address]Dr. Farhat Leal Urea nitrogen [Mass/Vol] 76.0 mg/dL Critically high 7.0-18.0 [facility] Comment on above: Performed By: #### B MP ####[facility] Gamvaosnjp236[address] [place], [place] [address]Dr. Farhat Leal Urea nitrogen/Creatinine [Mass ratio] 41.3 mg/mg Normal [facility] Comment on above: Performed By: #### B MP ####[facility] Sfdudknnzc1169[address] [place], [place] [address]Dr. Farhat Leal PTT HEPARIN MONITORon 2021 aPTT Coag (Bld) [Time] 57.2 s Critically high 39.5-54. 2 [facility] Comment on above: Performed By: #### P TTHEP ####[facility] Bpdafttyma00[address] [place], [place] [address]Dr. Farhat Leal aPTT Coag (Bld) [Time] 74.7 s Critically high 39.5-54. 2 [facility] Comment on above: Result Comment: repe ated Performed By: #### P TTHEP ####[facility] Gzpmrfdbef[address] [place], [place] [address]Dr. Farhat Leal aPTT Coag (Bld) [Time] 45.5 s Normal 39.5-54.2 Th e [facility] Comment on above: Performed By: #### P TTHEP ####[facility] Yuwrcozcuf8[address] [place], [place] [address]Dr. Farhat Leal CBC AUTO DIFFon 09-22-2021 BASO # 0.1 103/ul Normal 0.0-0.1 [facility] Comment on above: Performed By: #### C BC ####[facility] Axfwsvnoym1508[address] [place], [place] [address]Dr. Farhat Elvis Basophils/100 WBC (Bld) 0.7 % Normal 0.2-2.0 [facility] Comment on above: Performed By: #### C BC ####[facility] Kvljvibzqo2[address] [place], [place] [address]Dr. Farhat Leal EO # 0.3 103/ul Normal 0.0-0.7 [facility] Comment on above: Performed By: #### C BC ####[facility] Zjnmzeztwv9[address] [place], [place] [address]Dr. Madelynlorri Leal Eosinophils/100 WBC (Bld) 3.2 % Normal 0.9-7.0 The [facility] Comment on above: Performed By: #### C BC ####[facility] Mrmvxvwxrq[address] [place], [place] [address]Dr. Farhat Leal Erythrocyte distribution width (RBC) [Ratio] 12.5 % Normal 11.0-15.0 [facility] Comment on above: Performed By: #### C BC ####[facility] Iajlajbldt9[address] [place], [place] [address]Dr. Madelynlorri Leal Hematocrit (Bld) [Volume fraction] 40.5 % Critically low 42.0-54.0 [facility] Comment on above: Performed By: #### C BC ####[facility] Sktxhsbzzs64[address] [place], [place] [address]Dr. Farhat Leal Hemoglobin (Bld) [Mass/Vol] 13.4 g/dL Critically low 14.0-18.0 [facility] Comment on above: Performed By: #### C BC ####[facility] [address] [place] [id number]. Farhat Leal IG # 0.11 10e3/ul Critically high 0.00-0.03 [facility] Comment on above: Performed By: #### C BC ####[facility] Yqmdpzwzls35[address] [place] [id number]. Farhat Leal IG % 1.3 % Critically high 0.0-0.5 [facility] Comment on above: Performed By: #### C BC ####[facility] Mvzrdhdfgm9[address] [place] [id number]. Farhat Leal LYMPH # 1.7 103/ul Normal 1.2-3.8 [facility] Comment on above: Performed By: #### C BC ####[facility] Yjwrqnopee[address] [place] [address]Dr. Madelynlorri Leal Lymphocytes/100 WBC (Bld) 19.6 % Critically low 20.5-60.0 [facility] Comment on above: Performed By: #### C BC ####[facility] Guesiazlnq[address] [place] [address]Dr. Farhat Leal MANUAL DIFF REQ NO Normal [facility] Comment on above: Performed By: #### C BC ####[facility] Gyfntuuyvz32[address] [place] [address]Dr. Farhat Leal MCH (RBC) [Entitic mass] 31.1 pg Normal 25.9-34.0 [facility] Comment on above: Performed By: #### C BC ####[facility] Szvfhafkwl[address] [place] [address]Dr. Farhat Leal MCHC (RBC) [Mass/Vol] 33.1 g/dL Normal 29.9-35.2 [facility] Comment on above: Performed By: #### C BC ####[facility] Vfsrzsuage7[address] [place] [address]Dr. Farhat Leal MCV (RBC) [Entitic vol] 94.0 fL Normal 80.0-94.0 [facility] Comment on above: Performed By: #### C BC ####[facility] Apzqutgisl01[address] [place] [phone]. Farhat Leal MONO # 1.1 103/ul Critically high 0.3-0.8 [facility] Comment on above: Performed By: #### C BC ####[facility] Ykavplpqev60[address] [place] [id number]. Farhat Leal Monocytes/100 WBC (Bld) 12.7 % Critically high 1.7-12.0 The [facility] Comment on above: Performed By: #### C BC ####[facility] Oradksxpfa95[address] [place] [id number]. Farhat Leal NEUT # 5.3 103/ul Normal 1.4-6.5 The [facility] Comment on above: Performed By: #### C BC ####[facility] Vkogidwiqd0236 [place] [id number]. Farhat Leal Neutrophils/100 WBC (Bld) 62.5 % Normal 43.0-75.0 The [facility] Comment on above: Performed By: #### C BC ####[facility] Yrjnivwhdu55[address] [place] [phone]. Farhat Leal Platelet mean volume (Bld) [Entitic vol] 10.1 fL Normal 9.5-13.5 The [facility] Comment on above: Performed By: #### C BC ####[facility] Dbf[address]fbzjud4[address] [place] [id number]. Farhat Leal PLT 220 103/ul Normal 150-450 [facility] Comment on above: Performed By: #### C BC ####[facility] Xwcbyohglp95[address] [place] [phone]. Farhat Leal RBC 4.31 106/ul Critically low 4.70-6.10 [facility] Comment on above: Performed By: #### C BC ####[facility] Ryxympnpcw32[address] [place] [phone]. Farhat Leal WBC 8.4 103/ul Normal 4.0-11.0 [facility] Comment on above: Performed By: #### C BC ####[facility] Uvudfvetxh[address] [place] [address]Dr. Farhat Leal PROF CHEM 8 (BAS METB)on Anion gap [Moles/Vol] 15.5 mmol/L Normal [facility] Comment on above: Performed By: #### B MP ####[facility] Dauypvutad3417[address] [place], [place] [address]Dr. Farhat Leal Calcium [Mass/Vol] 8.9 mg/dL Normal 8.5-10.1 [facility] Comment on above: Performed By: #### B MP ####[facility] Hucowqiawa[address] [place], [place] [address]Dr. Farhat Leal Chloride [Moles/Vol] 92 mmol/L Critically low 98-107 [facility] Comment on above: Performed By: #### B MP ####[facility] Akzhckdawc[address]74[address] [place], [place] [address]Dr. Farhat Leal CO2 [Moles/Vol] 25.7 mmol/L Normal 21.0-32.0 [facility] Comment on above: Performed By: #### B MP ####[facility] Lkzzimvyrh7145[address] [place], [place] [address]Dr. Farhat Leal Creatinine [Mass/Vol] 1.85 mg/dL Critically high 0.70-1.30 [facility] Comment on above: Performed By: #### B MP ####[facility] Bhutfhxfxh5211[address] [place], [place] [address]Dr. Farhat Leal EGFR-AF KAZAKH 43 mL/min/1.73m2 Critically low >=60 [facility] Comment on above: Performed By: #### B MP ####[facility] Umaextaici8479[address] [place], [place] [address]Dr. Farhat Leal EGFR-NON AF KAZAKH 36 mL/min/1.73m2 Critically low >=60 [facility] Comment on above: Performed By: #### B MP ####[facility] Sarudqvozh4713[address] [place], [place] [address]Dr. Farhat Leal Glucose [Mass/Vol] 410 mg/dL Critically high 74-106 [facility] Comment on above: Performed By: #### B MP ####[facility] Foeivxxjyv477[address] [place], [place] [address]Dr. Farhat Leal Potassium [Moles/Vol] 5.2 mmol/L Critically high 3.5-5.1 [facility] Comment on above: Performed By: #### B MP ####[facility] Ettwskhwxf1365[address] [place], [place] [address]Dr. Farhat Leal Sodium [Moles/Vol] 128 mmol/L Critically low 136-[address] [facility] Comment on above: Performed By: #### B MP ####[facility] Yvflwdjqun0576[address] [place], [place] [address]Dr. Farhat Leal Urea nitrogen [Mass/Vol] 75.0 mg/dL Critically high 7.0-18.0 [facility] Comment on above: Performed By: #### B MP ####[facility] Akufczconj6233[address] [place], [place] [address]Dr. Farhat Leal Urea nitrogen/Creatinine [Mass ratio] 40.5 mg/mg Normal [facility] Comment on above: Performed By: #### B MP ####[facility] Ovxsazapws7094[address] [place], [place] [address]Dr. Farhat Leal PTT HEPARIN MONITORon 2021 aPTT Coag (Bld) [Time] 51.2 s Normal 39.5-54.[address] [facility] Comment on above: Performed By: #### P TTHEP ####[facility] Orusmwzfed[address] [place], [place] [address]Dr. Farhat Leal aPTT Coag (Bld) [Time] 55.6 s Critically high 39.5-54. 2 [facility] Comment on above: Performed By: #### P TTHEP ####[facility] Pjvatvmtpw0513[address] [place], [place] [address]Dr. Farhat Leal aPTT Coag (Bld) [Time] 46.1 s Normal 39.5-54.[address] [facility] Comment on above: Performed By: #### P TTHEP ####[facility] Enupvbaixy1385[address] [place], [place] [address]Dr. Farhat Leal aPTT Coag (Bld) [Time] 53.8 s Normal 39.5-54.2 Th e [facility] Comment on above: Performed By: #### P TTHEP ####[facility] Wrmmqasblj4501 [place] [phone]. Farhat Leal CBC AUTO DIFFon 09-21-2021 BASO # 0.1 103/ul Normal 0.0-0.1 [facility] Comment on above: Performed By: #### C BC ####[facility] Zneyvtpnwz5349[address] [place], [place] [address]Dr. Farhat Elvis Basophils/100 WBC (Bld) 0.8 % Normal 0.2-2.0 [facility] Comment on above: Performed By: #### C BC ####[facility] Iozxgsldzr2547[address] [place], [place] [address]Dr. Farhat Leal EO # 0.4 103/ul Normal 0.0-0.7 [facility] Comment on above: Performed By: #### C BC ####[facility] Vzhdmlymgb7[address] [place], [place] [address]Dr. Farhat Leal Eosinophils/100 WBC (Bld) 4.3 % Normal 0.9-7.0 [facility] Comment on above: Performed By: #### C BC ####[facility] Nguyboqgqh[address] [place], [place] [id number]. Farhat Leal Erythrocyte distribution width (RBC) [Ratio] 12.5 % Normal 11.0-15.0 [facility] Comment on above: Performed By: #### C BC ####[facility] Udhefyxlnx[address] [place], [place] [address]Dr. Farhat Leal Hematocrit (Bld) [Volume fraction] 40.8 % Critically low 42.0-54.0 [facility] Comment on above: Performed By: #### C BC ####[facility] Dooxnruzkn[address] [place], [place] [address]Dr. Farhat Leal Hemoglobin (Bld) [Mass/Vol] 13.5 g/dL Critically low 14.0-18.0 [facility] Comment on above: Performed By: #### C BC ####[facility] Petowqqolb[address] [place] [phone]. Farhat Leal IG # 0.10 10e3/ul Critically high 0.00-0.03 [facility] Comment on above: Performed By: #### C BC ####[facility] Snsnorendm7263 [place] [phone]. Farhat Leal IG % 1.2 % Critically high 0.0-0.5 [facility] Comment on above: Performed By: #### C BC ####[facility] Evafvdtgym[address] [place] [address]Dr. Farhat Leal LYMPH # 1.3 103/ul Normal 1.2-3.8 [facility] Comment on above: Performed By: #### C BC ####[facility] Lyjrkrcqdw029[address] [place] [address]Dr. Farhat Leal Lymphocytes/100 WBC (Bld) 15.4 % Critically low 20.5-60.0 [facility] Comment on above: Performed By: #### C BC ####[facility] Prwglqjmij95[address] [place] [address]Dr. Farhat Leal MANUAL DIFF REQ NO Normal [facility] Comment on above: Performed By: #### C BC ####[facility] Ybbxzboygq034[address] [place] [address]Dr. Farhat Leal MCH (RBC) [Entitic mass] 31.0 pg Normal 25.9-34.0 [facility] Comment on above: Performed By: #### C BC ####[facility] Fzyowrobup30[address] [place], [place] [address]Dr. Farhat Leal MCHC (RBC) [Mass/Vol] 33.1 g/dL Normal 29.9-35.2 [facility] Comment on above: Performed By: #### C BC ####[facility] Vyktheipjf[address] [place] [address]Dr. Farhat Leal MCV (RBC) [Entitic vol] 93.8 fL Normal 80.0-94.0 [facility] Comment on above: Performed By: #### C BC ####[facility] Ajbdofqcbf2820 [place] [phone]. Farhat Leal MONO # 1.2 103/ul Critically high 0.3-0.8 [facility] Comment on above: Performed By: #### C BC ####[facility] Nxqpcfggis2101 [place] [phone]. Farhat Leal Monocytes/100 WBC (Bld) 13.6 % Critically high 1.7-12.0 [facility] Comment on above: Performed By: #### C BC ####[facility] Mhsajxofyz5796 [place] [phone]. Farhat Leal NEUT # 5.5 103/ul Normal 1.4-6.5 [facility] Comment on above: Performed By: #### C BC ####[facility] Bqlmdkzlkn1643 [place] [phone]. Farhat Leal Neutrophils/100 WBC (Bld) 64.7 % Normal 43.0-75.0 [facility] Comment on above: Performed By: #### C BC ####[facility] Jihfqtavka2287 [place] [phone]. Farhat Leal Platelet mean volume (Bld) [Entitic vol] 9.8 fL Normal 9.5-13.5 [facility] Comment on above: Performed By: #### C BC ####[facility] Rqvgpcjuya1478 [place] [phone]. Farhat Leal PLT 206 103/ul Normal 150-450 [facility] Comment on above: Performed By: #### C BC ####[facility] Pistgffadh7760 [place] [phone]. Farhat Leal RBC 4.35 106/ul Critically low 4.70-6.10 [facility] Comment on above: Performed By: #### C BC ####[facility] Aztqozjneb6533 [place] [phone]. Farhat Leal WBC 8.4 103/ul Normal 4.0-11.0 [facility] Comment on above: Performed By: #### C BC ####[facility] Zboakfisfz38[address] [place] [address]Dr. Farhat Leal PROF CHEM 8 (BAS METB)on Anion gap [Moles/Vol] 12.3 mmol/L Normal [facility] Comment on above: Performed By: #### B MP ####[facility] Tonagpoqxt[address] [place] [address]Dr. Farhat Leal Calcium [Mass/Vol] 8.6 mg/dL Normal 8.5-10.1 [facility] Comment on above: Performed By: #### B MP ####[facility] Zpuaiiwpos3523[address] [place], [place] [address]Dr. Farhat Leal Chloride [Moles/Vol] 94 mmol/L Critically low 98-107 [facility] Comment on above: Performed By: #### B MP ####[facility] Bbjimmqfxj9147[address] [place], [place] [address]Dr. Farhat Leal CO2 [Moles/Vol] 30.8 mmol/L Normal 21.0-32.0 [facility] Comment on above: Performed By: #### B MP ####[facility] Yhanalsckv[address] [place], [place] [address]Dr. Farhat Leal Creatinine [Mass/Vol] 1.99 mg/dL Critically high 0.70-1.30 [facility] Comment on above: Performed By: #### B MP ####[facility] Nzptbgnkqq8216[address] [place], [place] [address]Dr. Farhat Leal EGFR-AF KAZAKH 40 mL/min/1.73m2 Critically low >=60 [facility] Comment on above: Performed By: #### B MP ####[facility] Opivaezofu279[address] [place], [place] [address]Dr. Farhat Leal EGFR-NON AF KAZAKH 33 mL/min/1.73m2 Critically low >=60 [facility] Comment on above: Performed By: #### B MP ####[facility] Yrxrmfyncq01[address] [place], [place] [address]Dr. Farhat Leal Glucose [Mass/Vol] 264 mg/dL Critically high 74-106 [facility] Comment on above: Performed By: #### B MP ####[facility] Kwdkgawayn1339[address] [place], [place] [address]Dr. Farhat Leal Potassium [Moles/Vol] 5.1 mmol/L Normal 3.5-5.1 [facility] Comment on above: Performed By: #### B MP ####[facility] Rvqcagzwzq4425[address] [place], [place] [address]Dr. Farhat Leal Sodium [Moles/Vol] 132 mmol/L Critically low 136-[address] [facility] Comment on above: Performed By: #### B MP ####[facility] Wqmeyjuhpm9[address] [place], [place] [address]Dr. Farhat Leal Urea nitrogen [Mass/Vol] 72.0 mg/dL Critically high 7.0-18.0 [facility] Comment on above: Performed By: #### B MP ####[facility] Lwlvjsqbcc1114[address] [place], [place] [address]Dr. Farhat Leal Urea nitrogen/Creatinine [Mass ratio] 36.2 mg/mg Normal [facility] Comment on above: Performed By: #### B MP ####[facility] Ticjtiugxm[address] [place], [place] [address]Dr. Farhat Leal PTT HEPARIN MONITORon 2021 aPTT Coag (Bld) [Time] 45.3 s Normal 39.5-54.2 [facility] Comment on above: Performed By: #### P TTHEP ####[facility] Njiquhkhrj32[address] [place], [place] [address]Dr. Farhat Leal aPTT Coag (Bld) [Time] 68.0 s Critically high 39.5-54. 2 [facility] Comment on above: Performed By: #### P TTHEP ####[facility] Xakkwjwljt[address] [place], [place] [address]Dr. Farhat Leal aPTT Coag (Bld) [Time] 69.4 s Critically high 39.5-54. 2 [facility] Comment on above: Performed By: #### P TTHEP ####[facility] Qplbxqbscb1407[address] [place], [place] [address]Dr. Farhat Leal aPTT Coag (Bld) [Time] 53.5 s Normal 39.5-54.2 Th e [facility] Comment on above: Performed By: #### P TTHEP ####[facility] Urhtxrslxc5209[address] [place], [place] [address]Dr. Farhat Elvis aPTT Coag (Bld) [Time] 126.9 s Critically high 39.5-54. 2 [facility] Comment on above: Performed By: #### P TTHEP ####[facility] Qxslrnsfvp2935[address] [place], [place] [address]Dr. Farhat Elvis CBC AUTO DIFFon 09-20-2021 BASO # 0.1 103/ul Normal 0.0-0.1 [facility] Comment on above: Performed By: #### C BC ####[facility] Sjnevabepe[address] [place], [place] [address]Dr. Farhat Leal Basophils/100 WBC (Bld) 0.7 % Normal 0.2-2.0 [facility] Comment on above: Performed By: #### C BC ####[facility] Ktoymxzayi27[address] [place], [place] [address]Dr. Madelynlorri Leal EO # 0.2 103/ul Normal 0.0-0.7 [facility] Comment on above: Performed By: #### C BC ####[facility] Uyokivhjuu99[address] [place], [place] [address]Dr. Farhat Leal Eosinophils/100 WBC (Bld) 3.2 % Normal 0.9-7.0 [facility] Comment on above: Performed By: #### C BC ####[facility] Nxgfacucnh2494[address] [place], [place] [address]Dr. Farhat Leal Erythrocyte distribution width (RBC) [Ratio] 12.4 % Normal 11.0-15.0 [facility] Comment on above: Performed By: #### C BC ####[facility] Rkohqdmzit67[address] [place], [place] [address]Dr. Farhat Leal Hematocrit (Bld) [Volume fraction] 40.1 % Critically low 42.0-54.0 [facility] Comment on above: Performed By: #### C BC ####[facility] Wibucvtocp34[address] [place] [id number]. Farhat Leal Hemoglobin (Bld) [Mass/Vol] 13.4 g/dL Critically low 14.0-18.0 [facility] Comment on above: Performed By: #### C BC ####[facility] Ixuoycibhe3496 [place] [phone]. Farhat Leal IG # 0.08 10e3/ul Critically high 0.00-0.03 [facility] Comment on above: Performed By: #### C BC ####[facility] Ygmtppvskv9033 [place] [phone]. Farhat Leal IG % 1.1 % Critically high 0.0-0.5 [facility] Comment on above: Performed By: #### C BC ####[facility] Ungptlignx72[address] [place] [address]Dr. Farhat Leal LYMPH # 1.3 103/ul Normal 1.2-3.8 [facility] Comment on above: Performed By: #### C BC ####[facility] Wpfjiqninb24[address] [place] [address]Dr. Farhat Leal Lymphocytes/100 WBC (Bld) 17.3 % Critically low 20.5-60.0 [facility] Comment on above: Performed By: #### C BC ####[facility] Khvkrsutpj13[address] [place] [address]Dr. Farhat Leal MANUAL DIFF REQ NO Normal [facility] Comment on above: Performed By: #### C BC ####[facility] Gjrcqyijme3597 [place] [phone]. Farhat Leal MCH (RBC) [Entitic mass] 31.2 pg Normal 25.9-34.0 [facility] Comment on above: Performed By: #### C BC ####[facility] Cphhnjwmcl4304 [place] [phone]. Farhat Leal MCHC (RBC) [Mass/Vol] 33.4 g/dL Normal 29.9-35.2 [facility] Comment on above: Performed By: #### C BC ####[facility] Bpdpcvrvvw2551 [place] [phone]. Farhat Leal MCV (RBC) [Entitic vol] 93.3 fL Normal 80.0-94.0 [facility] Comment on above: Performed By: #### C BC ####[facility] Fybsqlbhou7573 [place] [phone]. Farhat Leal MONO # 0.9 103/ul Critically high 0.3-0.8 [facility] Comment on above: Performed By: #### C BC ####[facility] Kyszbsblee2875 [place] [phone]. Farhat Leal Monocytes/100 WBC (Bld) 12.4 % Critically high 1.7-12.0 [facility] Comment on above: Performed By: #### C BC ####[facility] Zhziglvklq[address] [place], [place] [address]Dr. Farhat Leal NEUT # 4.7 103/ul Normal 1.4-6.5 [facility] Comment on above: Performed By: #### C BC ####[facility] Skwsjvovgc[address] [place], [place] [id number]. Farhat Leal Neutrophils/100 WBC (Bld) 65.3 % Normal 43.0-75.0 [facility] Comment on above: Performed By: #### C BC ####[facility] Waytsuhirb[address] [place], [place] [id number]. Farhat Leal Platelet mean volume (Bld) [Entitic vol] 9.9 fL Normal 9.5-13.5 [facility] Comment on above: Performed By: #### C BC ####[facility] Ifwcxpxnwh2728 [place] [id number]. Farhat Leal PLT 180 103/ul Normal 150-450 [facility] Comment on above: Performed By: #### C BC ####[facility] Ychstplrjp8668 [place] [id number]. Farhat Leal RBC 4.30 106/ul Critically low 4.70-6.10 [facility] Comment on above: Performed By: #### C BC ####[facility] Pxumuivbdl9163 [place] [address]Dr. Farhat Leal WBC 7.2 103/ul Normal 4.0-11.0 [facility] Comment on above: Performed By: #### C BC ####[facility] Sqcbjqzqdr[address] [place], [place] [address]Dr. Farhat Elvis PTT HEPARIN MONITORon 2021 aPTT Coag (Bld) [Time] 26.7 s Critically low 39.5-54.2 [facility] Comment on above: Performed By: #### P TTHEP ####[facility] Pcpkwtwuzy[address] [place], [place] [address]Dr. Farhat Elvis aPTT Coag (Bld) [Time] 121.0 s Critically high 39.5-54. 2 [facility] Comment on above: Performed By: #### P TTHEP ####[facility] Irrqgpvmly[address] [place], [place] [address]Dr. Farhat Elvis aPTT Coag (Bld) [Time] 27.6 s Critically low 39.5-54.2 [facility] Comment on above: Performed By: #### P TTHEP ####[facility] Oytpesxaxc[address] [place], [place] [address]Dr. Farhat Elvis aPTT Coag (Bld) [Time] 139.0 s Critically high 39.5-54. 2 [facility] Comment on above: Performed By: #### P TTHEP ####[facility] Vddggjkpar[address] [place], [place] [address]Dr. Farhat Elvis CBC AUTO DIFFon 09-19-2021 BASO # 0.0 103/ul Normal 0.0-0.1 [facility] Comment on above: Performed By: #### C BC ####[facility] Hfnmmkynqw[address] [place], [place] [address]Dr. Farhat Leal Basophils/100 WBC (Bld) 0.5 % Normal 0.2-2.0 [facility] Comment on above: Performed By: #### C BC ####[facility] Syxrwwqkjw2875 [place] [id number]. Farhat Leal EO # 0.2 103/ul Normal 0.0-0.7 [facility] Comment on above: Performed By: #### C BC ####[facility] Mjrembbikb3645 [place] [id number]. Farhat Leal Eosinophils/100 WBC (Bld) 2.6 % Normal 0.9-7.0 [facility] Comment on above: Performed By: #### C BC ####[facility] Ipfkrqiagc9575 [place] [address]Dr. Farhat Leal Erythrocyte distribution width (RBC) [Ratio] 12.5 % Normal 11.0-15.0 [facility] Comment on above: Performed By: #### C BC ####[facility] Ifqwiehbry0452 [place] [address]Dr. Farhat Leal Hematocrit (Bld) [Volume fraction] 39.2 % Critically low 42.0-54.0 [facility] Comment on above: Performed By: #### C BC ####[facility] Retohbzkub6782 [place] [address]Dr. Farhat Leal Hemoglobin (Bld) [Mass/Vol] 13.3 g/dL Critically low 14.0-18.0 [facility] Comment on above: Performed By: #### C BC ####[facility] Rvycpjoffm7934 [place] [id number]. Farhat Leal IG # 0.08 10e3/ul Critically high 0.00-0.03 [facility] Comment on above: Performed By: #### C BC ####[facility] Tpmjahkhhn7285 [place] [id number]. Farhat Leal IG % 0.9 % Critically high 0.0-0.5 [facility] Comment on above: Performed By: #### C BC ####[facility] Sxjhvauclw1852 [place] [address]Dr. Farhat Leal LYMPH # 1.5 103/ul Normal 1.2-3.8 [facility] Comment on above: Performed By: #### C BC ####[facility] Kqntsgeuxt9476 [place] [id number]. Farhat Leal Lymphocytes/100 WBC (Bld) 17.2 % Critically low 20.5-60.0 [facility] Comment on above: Performed By: #### C BC ####[facility] Phsrpqhoef5929 [place] [id number]. Farhat Elvis MANUAL DIFF REQ NO Normal [facility] Comment on above: Performed By: #### C BC ####[facility] Qdzxpvftpl9591 [place] [phone]. Farhat Elvis MCH (RBC) [Entitic mass] 31.7 pg Normal 25.9-34.0 [facility] Comment on above: Performed By: #### C BC ####[facility] Sxgxgubaon8904 [place] [address]Dr. Farhat Elvis MCHC (RBC) [Mass/Vol] 33.9 g/dL Normal 29.9-35.2 [facility] Comment on above: Performed By: #### C BC ####[facility] Rkeqkzniwe3062 [place] [id number]. Farhat Elvis MCV (RBC) [Entitic vol] 93.3 fL Normal 80.0-94.0 [facility] Comment on above: Performed By: #### C BC ####[facility] Rszxyqyslf6642 [place] [id number]. Farhat Leal MONO # 1.2 103/ul Critically high 0.3-0.8 [facility] Comment on above: Performed By: #### C BC ####[facility] Ytayjzeqxs0123 [place] [phone]. Farhat Elvis Monocytes/100 WBC (Bld) 13.7 % Critically high 1.7-12.0 [facility] Comment on above: Performed By: #### C BC ####[facility] Itwzepcdwa0673 [place] [address]Dr. Farhat Leal NEUT # 5.5 103/ul Normal 1.4-6.5 [facility] Comment on above: Performed By: #### C BC ####[facility] Hefgqjolvu8864 [place] [phone]. Farhat Leal Neutrophils/100 WBC (Bld) 65.1 % Normal 43.0-75.0 [facility] Comment on above: Performed By: #### C BC ####[facility] Kpyrjurzou3010 [place] [phone]. Farhat Leal Platelet mean volume (Bld) [Entitic vol] 9.6 fL Normal 9.5-13.5 [facility] Comment on above: Performed By: #### C BC ####[facility] Efwqpcdeeu3406 [place] [phone]. Farhat Leal PLT 163 103/ul Normal 150-450 [facility] Comment on above: Performed By: #### C BC ####[facility] Mzipnuswit8472 [place] [address]Dr. Farhat Leal RBC 4.20 106/ul Critically low 4.70-6.10 [facility] Comment on above: Performed By: #### C BC ####[facility] Pzkzdfcgpk6675 [place] [address]Dr. Farhat Leal WBC 8.4 103/ul Normal 4.0-11.0 [facility] Comment on above: Performed By: #### C BC ####[facility] Aspdzizgqn0885 [place] [address]Dr. Farhat Leal POINT OF CARE GLUCOSEon Glucose [Mass/Vol] 300 mg/dL Critically high 74-106 [facility] Comment on above: Performed By: #### P OCGLUC ####[facility] Lezasabccp3664 [place] [phone]. Farhat Leal POTASSIUMon 09-19-2021 Potassium [Moles/Vol] 4.9 mmol/L Normal 3.5-5.1 [facility] Comment on above: Performed By: #### K ####[facility] Tgmasjewax9811 [place] [address]Dr. Farhat Leal PTT HEPARIN MONITORon 2021 aPTT Coag (Bld) [Time] 23.4 s Critically low 39.5-54.2 [facility] Comment on above: Result Comment: repe ated Performed By: #### P TTHEP ####[facility] Hzgylkzsgn44[address] [place], [place] [address]Dr. Farhat Leal aPTT Coag (Bld) [Time] 101.2 s Critically high 39.5-54. 2 [facility] Comment on above: Performed By: #### P TTHEP ####[facility] Khrsshnahm[address] [place], [place] [address]Dr. Farhat Leal aPTT Coag (Bld) [Time] 81.0 s Critically high 39.5-54. 2 [facility] Comment on above: Result Comment: Test Repeated. Critical Value Verified Performed By: #### P TTHEP ####[facility] Xrelkfqrby95[address] [place], [place] [address]Dr. Farhat Leal CBC AUTO DIFFon 09-18-2021 BASO # 0.0 103/ul Normal 0.0-0.1 [facility] Comment on above: Performed By: #### C BC ####[facility] Jutqayjyvb64[address] [place], [place] [address]Dr. Farhat Leal Basophils/100 WBC (Bld) 0.4 % Normal 0.2-2.0 [facility] Comment on above: Performed By: #### C BC ####[facility] Ewardkylug[address] [place], [place] [address]Dr. Farhat Leal EO # 0.1 103/ul Normal 0.0-0.7 [facility] Comment on above: Performed By: #### C BC ####[facility] Wjevxfmenk8899[address] [place], [place] [address]Dr. Farhat Leal Eosinophils/100 WBC (Bld) 0.8 % Critically low 0.9-7.0 [facility] Comment on above: Performed By: #### C BC ####[facility] Srnismcszu1416[address] [place], [place] [address]Dr. Farhat Leal Erythrocyte distribution width (RBC) [Ratio] 12.4 % Normal 11.0-15.0 [facility] Comment on above: Performed By: #### C BC ####[facility] Kawpgrwafs5783 [place] [address]Dr. Farhat Leal Hematocrit (Bld) [Volume fraction] 41.7 % Critically low 42.0-54.0 [facility] Comment on above: Performed By: #### C BC ####[facility] Tzhpclzonm1033 [place] [address]Dr. Farhat Leal Hemoglobin (Bld) [Mass/Vol] 14.1 g/dL Normal 14.0-18.0 [facility] Comment on above: Performed By: #### C BC ####[facility] Oklrqjhrud0560 [place] [address]Dr. Farhat Leal IG # 0.06 10e3/ul Critically high 0.00-0.03 [facility] Comment on above: Performed By: #### C BC ####[facility] Wxrbcreaut49[address] [place], [place] [address]Dr. Farhat Leal IG % 0.6 % Critically high 0.0-0.5 [facility] Comment on above: Performed By: #### C BC ####[facility] Edrohvjqia5676 [place] [address]Dr. Farhat Leal LYMPH # 0.6 103/ul Critically low 1.2-3.8 [facility] Comment on above: Performed By: #### C BC ####[facility] Baupwrrhqa8394 [place] [address]Dr. Farhat Elvis Lymphocytes/100 WBC (Bld) 6.5 % Critically low 20.5-60.0 [facility] Comment on above: Performed By: #### C BC ####[facility] Jboxphsiab0063 [place] [address]Dr. Farhat Leal MANUAL DIFF REQ NO Normal [facility] Comment on above: Performed By: #### C BC ####[facility] Ljilylqowv6215 [place] [address]Dr. Farhat Elvis MCH (RBC) [Entitic mass] 31.6 pg Normal 25.9-34.0 [facility] Comment on above: Performed By: #### C BC ####[facility] Jpitvrzmuf3082 [place] [id number]. Farhat Elvis MCHC (RBC) [Mass/Vol] 33.8 g/dL Normal 29.9-35.2 [facility] Comment on above: Performed By: #### C BC ####[facility] Duqtkbzkow8031 [place] [phone]. Farhat Leal MCV (RBC) [Entitic vol] 93.5 fL Normal 80.0-94.0 [facility] Comment on above: Performed By: #### C BC ####[facility] Lhkhfqtovr2282 [place] [phone]. Farhat Leal MONO # 1.0 103/ul Critically high 0.3-0.8 [facility] Comment on above: Performed By: #### C BC ####[facility] Xhjezsjhuo[address] [place], [place] [address]Dr. Farhat Leal Monocytes/100 WBC (Bld) 10.4 % Normal 1.7-12.0 [facility] Comment on above: Performed By: #### C BC ####[facility] Kqjtywqcvw[address] [place], [place] [address]Dr. Farhat Leal NEUT # 7.8 103/ul Critically high 1.4-6.5 [facility] Comment on above: Performed By: #### C BC ####[facility] Vfkdcejsgp97[address] [place], [place] [address]Dr. Farhat Leal Neutrophils/100 WBC (Bld) 81.3 % Critically high 43.0-75.0 [facility] Comment on above: Performed By: #### C BC ####[facility] Rwhsfesaqp2359 [place] [phone] Leal Platelet mean volume (Bld) [Entitic vol] 9.9 fL Normal 9.5-13.5 [facility] Comment on above: Performed By: #### C BC ####[facility] Waryoiedly0776 [place] [phone]. Farhat Leal PLT 169 103/ul Normal 150-450 [facility] Comment on above: Performed By: #### C BC ####[facility] Hrnaqooidg4244 [place] [phone]. Farhat Leal RBC 4.46 106/ul Critically low 4.70-6.10 [facility] Comment on above: Performed By: #### C BC ####[facility] Sfbvabetse8818 [place] [phone]. Farhat Elvis WBC 9.6 103/ul Normal 4.0-11.0 [facility] Comment on above: Performed By: #### C BC ####[facility] Zedqhzowpf8881 [place] [phone]. Farhat Leal BASO # 0.0 103/ul Normal 0.0-0.1 [facility] Comment on above: Performed By: #### C BC ####[facility] Uurakqntxk19[address] [place], [place] [address]Dr. Farhat Leal Basophils/100 WBC (Bld) 0.4 % Normal 0.2-2.0 [facility] Comment on above: Performed By: #### C BC ####[facility] Unmckjhjgu9790 [place] [phone]. Farhat Leal EO # 0.1 103/ul Normal 0.0-0.7 [facility] Comment on above: Performed By: #### C BC ####[facility] Hwmpihrgjq8180 [place] [phone]. Farhat Leal Eosinophils/100 WBC (Bld) 1.1 % Normal 0.9-7.0 [facility] Comment on above: Performed By: #### C BC ####[facility] Vvnvrzxsns[address] [place], [place] [address]Dr. Madelynlorri Leal Erythrocyte distribution width (RBC) [Ratio] 12.6 % Normal 11.0-15.0 [facility] Comment on above: Performed By: #### C BC ####[facility] Gdcubalvqp[address] [place], [place] [address]Dr. Farhat Leal Hematocrit (Bld) [Volume fraction] 40.8 % Critically low 42.0-54.0 [facility] Comment on above: Performed By: #### C BC ####[facility] Gjqgzormlf4137 [place] [phone]. Farhat Leal Hemoglobin (Bld) [Mass/Vol] 13.6 g/dL Critically low 14.0-18.0 [facility] Comment on above: Performed By: #### C BC ####[facility] Bfrjlfrytd2645 [place] [phone]. Farhat Leal IG # 0.08 10e3/ul Critically high 0.00-0.03 [facility] Comment on above: Performed By: #### C BC ####[facility] Pdluewixwe4523 [place] [address]Dr. Farhat Leal IG % 0.9 % Critically high 0.0-0.5 [facility] Comment on above: Performed By: #### C BC ####[facility] Nkjvotiohn9618 [place] [address]Dr. Farhat Leal LYMPH # 0.8 103/ul Critically low 1.2-3.8 [facility] Comment on above: Performed By: #### C BC ####[facility] Hsrzczbxka7661 [place] [address]Dr. Farhat Leal Lymphocytes/100 WBC (Bld) 8.7 % Critically low 20.5-60.0 [facility] Comment on above: Performed By: #### C BC ####[facility] Aimbtpunzu4037 [place] [address]Dr. Farhat Leal MANUAL DIFF REQ NO Normal [facility] Comment on above: Performed By: #### C BC ####[facility] Plnguqvytl2471 [place] [phone]. Farhat Leal MCH (RBC) [Entitic mass] 31.6 pg Normal 25.9-34.0 [facility] Comment on above: Performed By: #### C BC ####[facility] Fckavpgkcp2577 [place] [phone]. Farhat Leal MCHC (RBC) [Mass/Vol] 33.3 g/dL Normal 29.9-35.2 [facility] Comment on above: Performed By: #### C BC ####[facility] Ymbgevvejj8516 [place] [phone]. Farhat Leal MCV (RBC) [Entitic vol] 94.9 fL Critically high 80.0-94.0 [facility] Comment on above: Performed By: #### C BC ####[facility] Ybgnuoawrr0452 [place] [phone]. Farhat Leal MONO # 1.0 103/ul Critically high 0.3-0.8 [facility] Comment on above: Performed By: #### C BC ####[facility] Kqvdzjmxxf4766 [place] [phone]. Farhat Leal Monocytes/100 WBC (Bld) 11.3 % Normal 1.7-12.0 [facility] Comment on above: Performed By: #### C BC ####[facility] Kcpbjyrqcw39[address] [place], [place] [address]Dr. Farhat Leal NEUT # 6.9 103/ul Critically high 1.4-6.5 [facility] Comment on above: Performed By: #### C BC ####[facility] Iubmhkytlt0881 [place] [phone]. Farhat Leal Neutrophils/100 WBC (Bld) 77.6 % Critically high 43.0-75.0 [facility] Comment on above: Performed By: #### C BC ####[facility] Tjyyjeycvg7793 [place] [phone]. Farhat Elvis Platelet mean volume (Bld) [Entitic vol] 9.7 fL Normal 9.5-13.5 [facility] Comment on above: Performed By: #### C BC ####[facility] Xrsrqzvwsw7950 [place] [phone]. Farhat Elvis PLT 171 103/ul Normal 150-450 [facility] Comment on above: Performed By: #### C BC ####[facility] Aerxxycvvb5275 [place] [phone]. Farhat Leal RBC 4.30 106/ul Critically low 4.70-6.10 [facility] Comment on above: Performed By: #### C BC ####[facility] Fetpktjjzt5929 [place], [place] [address]Kk. Farhat Leal WBC 8.9 103/ul Normal 4.0-11.0 [facility] Comment on above: Performed By: #### C BC ####[facility] Bxiclrenwc8491 [place], [place] [address]Sc. Farhat Elvis Covid-19 PCR (CVDTBH)on SARS-CoV-2 (COVID-19) RNA JOSH+probe Ql (Unsp spec) Not detected Normal NOT DETECTED [facility] Comment on above: Result Comment: When [...] for this test is supported by the Tax Examiner of Health and Human Service's declaration that [...] be used). Performed By: #### C VDTBH ####[facility] Euxzbcbfyh9713 [place] [phone]. Madelynlorri Leal PROF 14(COMP METB)on 022 Albumin [Mass/Vol] 2.6 g/dL Critically low 3.4-5.0 [facility] Comment on above: Performed By: #### C MP ####[facility] Qstnpvtmiv8878 [place] [phone]. Farhat Leal Albumin/Globulin [Mass ratio] 0.7 {ratio} Normal [facility] Comment on above: Performed By: #### C MP ####[facility] Muymuuzbgx9717 [place] [phone]. Farhat Leal ALP [Catalytic activity/Vol] 88 U/L Normal 46-116 [facility] Comment on above: Performed By: #### C MP ####[facility] Mqjeecqqze5039 [place] [phone]. Farhat Leal ALT [Catalytic activity/Vol] 15 U/L Critically low 16-63 [facility] Comment on above: Performed By: #### C MP ####[facility] Ufedoqvqou7799 [place] [address]Dr. Farhat Leal Anion gap [Moles/Vol] 11.7 mmol/L Normal Th e [facility] Comment on above: Performed By: #### C MP ####[facility] Ayayjzwppo2062 [place] [address]Dr. Farhat Leal AST [Catalytic activity/Vol] 25 U/L Normal 15-37 [facility] Comment on above: Performed By: #### C MP ####[facility] Ppgprxysqi0836 [place] [address]Dr. Farhat Leal Bilirubin [Mass/Vol] 0.6 mg/dL Normal 0.2-1.0 [facility] Comment on above: Performed By: #### C MP ####[facility] Noladfwrxb6498 [place] [address]Dr. Farhat Leal Calcium [Mass/Vol] 8.9 mg/dL Normal 8.5-10.1 [facility] Comment on above: Performed By: #### C MP ####[facility] Xkbfnlqvzj6528 [place] [address]Dr. Farhat Leal Chloride [Moles/Vol] 93 mmol/L Critically low 98-107 [facility] Comment on above: Performed By: #### C MP ####[facility] Hbeotyaxrx6467 [place] [address]Dr. Farhat Leal CO2 [Moles/Vol] 28.9 mmol/L Normal 21.0-32.0 [facility] Comment on above: Performed By: #### C MP ####[facility] Hvxkvyqgpg0368 [place] [address]Dr. Farhat Leal Creatinine [Mass/Vol] 2.09 mg/dL Critically high 0.70-1.30 [facility] Comment on above: Performed By: #### C MP ####[facility] Norlbadjik7761 [place] [address]Dr. Farhat Leal EGFR-AF KAZAKH 38 mL/min/1.73m2 Critically low >=60 [facility] Comment on above: Performed By: #### C MP ####[facility] Vysajwqozo3927 [place] [address]Dr. Farhat Leal EGFR-NON AF KAZAKH 31 mL/min/1.73m2 Critically low >=60 [facility] Comment on above: Performed By: #### C MP ####[facility] Nnhycdzkcu5657 [place] [address]Dr. Farhat Leal Globulin (S) [Mass/Vol] 3.7 g/dL Normal [facility] Comment on above: Performed By: #### C MP ####[facility] Tzqrcimjtm2781 [place] [address]Dr. Farhat Leal Glucose [Mass/Vol] 214 mg/dL Critically high 74-106 T [facility] Comment on above: Performed By: #### C MP ####[facility] Rvexktutge4343 [place] [address]Dr. Farhat Leal Potassium [Moles/Vol] 5.6 mmol/L Critically high 3.5-5.1 [facility] Comment on above: Performed By: #### C MP ####[facility] Wyhkewbopk0145 [place] [address]Dr. Farhat Leal Protein [Mass/Vol] 6.3 g/dL Critically low 6.4-8.[address] [facility] Comment on above: Performed By: #### C MP ####[facility] Tnwauijnls7423 [place] [address]Dr. Farhat Leal Sodium [Moles/Vol] 128 mmol/L Critically low 136-[address] [facility] Comment on above: Performed By: #### C MP ####[facility] Nlpqwpntsh0774 [place] [id number]. Farhat Leal Urea nitrogen [Mass/Vol] 65.0 mg/dL Critically high 7.0-18.0 [facility] Comment on above: Performed By: #### C MP ####[facility] Awndwlnyre9496 [place] [phone]. Farhat Elvis Urea nitrogen/Creatinine [Mass ratio] 31.1 mg/mg Normal [facility] Comment on above: Performed By: #### C MP ####[facility] Vqqnrxfchr4[address] [place], [place] [address]Dr. Farhat Elvis Albumin [Mass/Vol] 2.5 g/dL Critically low 3.4-5.[address] [facility] Comment on above: Performed By: #### T MYRIAM, CMP ####[facility] Uptkvjiqqf[address] [place], [place] [address]Dr. Farhat Leal Albumin/Globulin [Mass ratio] 0.7 {ratio} Normal [facility] Comment on above: Performed By: #### T MYRIAM, CMP ####[facility] Rlkkuduhhz64[address] [place], [place] [address]Dr. Madelynlorri Leal ALP [Catalytic activity/Vol] 83 U/L Normal 46-116 [facility] Comment on above: Performed By: #### T MYRIAM, CMP ####[facility] Goihzwkjmx55[address] [place], [place] [address]Dr. Farhat Leal ALT [Catalytic activity/Vol] 16 U/L Normal 16-63 [facility] Comment on above: Performed By: #### T MYRIAM, CMP ####[facility] Coixqelzmo40[address] [place], [place] [address]Dr. Farhat Elvis Anion gap [Moles/Vol] 9.7 mmol/L Normal [facility] Comment on above: Performed By: #### T SH, CMP ####[facility] Kohtrosxnj22[address] [place], [place] [address]Dr. Farhat Leal AST [Catalytic activity/Vol] 27 U/L Normal 15-37 [facility] Comment on above: Performed By: #### T MYRIAM, CMP ####[facility] Mngcwgsmos4[address] [place], [place] [address]Dr. Farhat Leal Bilirubin [Mass/Vol] 0.5 mg/dL Normal 0.2-1.0 [facility] Comment on above: Performed By: #### T SH, CMP ####[facility] Ehnnhlapcs[address] [place], [place] [address]Dr. Farhat Leal Calcium [Mass/Vol] 8.8 mg/dL Normal 8.5-10.1 [facility] Comment on above: Performed By: #### T SH, CMP ####[facility] Wyffoguiyx50[address] [place], [place] [address]Dr. Farhat Leal Chloride [Moles/Vol] 95 mmol/L Critically low 98-107 [facility] Comment on above: Performed By: #### T SH, CMP ####[facility] Zxdflgbvan802615 [address] [place], [place] [address]Dr. Farhat Leal CO2 [Moles/Vol] 30.5 mmol/L Normal 21.0-32.0 [facility] Comment on above: Performed By: #### T MYRIAM, CMP ####[facility] I[address] [place], [place] [address]Dr. Farhat Leal Creatinine [Mass/Vol] 2.18 mg/dL Critically high 0.70-1.30 [facility] Comment on above: Performed By: #### T SH, CMP ####[facility] Vwsri[address] [place], [place] [address]Dr. Farhat Leal EGFR-AF KAZAKH 36 mL/min/1.73m2 Critically low >=60 [facility] Comment on above: Performed By: #### T SH, CMP ####[facility] Wq[address] [place], [place] [address]Dr. Farhat Leal EGFR-NON AF KAZAKH 30 mL/min/1.73m2 Critically low >=60 [facility] Comment on above: Performed By: #### T SH, CMP ####[facility] Agoia[address] [place], [place] [address]Dr. Farhat Elal Globulin (S) [Mass/Vol] 3.5 g/dL Normal [facility] Comment on above: Performed By: #### T SH, CMP ####[facility] Zf[address] [place], [place] [address]Dr. Farhat Leal Glucose [Mass/Vol] 141 mg/dL Critically high 74-106 T [facility] Comment on above: Performed By: #### T SH, CMP ####[facility] [address] [place], [place] [address]Dr. Farhat Leal Potassium [Moles/Vol] 5.2 mmol/L Critically high 3.5-5.1 [facility] Comment on above: Performed By: #### T SH, CMP ####[facility] O[address] [place], [place] [address]Dr. Farhat Leal Protein [Mass/Vol] 6.0 g/dL Critically low 6.4-8.[address] [facility] Comment on above: Performed By: #### T SH, CMP ####[facility] S[address]ts[address] [place], [place] [address]Dr. Farhat Leal Sodium [Moles/Vol] 130 mmol/L Critically low 136-145 [facility] Comment on above: Performed By: #### T SH, CMP ####[facility] S[address] [place], [place] [address]Dr. Farhat Elvis Urea nitrogen [Mass/Vol] 63.0 mg/dL Critically high 7.0-18.0 [facility] Comment on above: Performed By: #### T SH, CMP ####[facility] J[address] [place], [place] [address]Dr. Farhat Elvis Urea nitrogen/Creatinine [Mass ratio] 28.9 mg/mg Normal [facility] Comment on above: Performed By: #### T SH, CMP ####[facility] U[address] [place], [place] [address]Dr. Farhat Leal PROTIMEon 09-18-2021 INR Coag (PPP) [Relative time] 1.06 {INR} Normal [facility] Comment on above: Performed By: #### P T, PTT ####[facility] Cl[address] [place], [place] [address]Dr. Farhat Leal INR GUIDELINES SEE BELOW Normal [facility] Comment on above: Result Comment: MALINA RED INR: 2.0 - 3.0 CONDITIONS NOT LISTED BELOW 2.5 - 3.5 FOR PROSTHETIC HEART VALVE REPLACEMENT 2.5 - 3.5 RECURRENT THROMBOSIS Performed By: #### P T, PTT ####[facility] [address] [place] [id number]. Madelynlorri Elvis PT Coag (PPP) [Time] 11.4 s Normal 9.0-11.6 [facility] Comment on above: Performed By: #### P T, PTT ####[facility] [address] [place] [address]Dr. Madelynlorri Elvis PTTon 09-18-2021 aPTT Coag (Bld) [Time] 27.9 s Normal 22.3-36.[address] [facility] Comment on above: Performed By: #### P T, PTT ####[facility] [address] [place] [address]Dr. Farhat Leal TSHon 09-18-2021 TSH 7.099 uIU/mL Critically high 0.358-3.740 [facility] Comment on above: Performed By: #### T SH, CMP ####[facility] Y[address] [place], [place] [address]Dr. Farhat Leal US SALOME DOP LEG RTon 09-19-19 US SALOME DOP LEG RT Normal [facility] XR CHEST 1 Von 09-18-2021 XR CHEST 1 V Normal [facility] XR HIP RT 2 3V W PELVISon XR HIP RT 2 3V W PELVIS Normal [facility] Vital Signs Date Time Vital Sign Value Performing Clinician Facility 03-18-2023 13:37-0500 Body temperature 98.01 [degF] [place] [employer] Work Phone: [facility] 03-18-2023 13:37-0500 Diastolic blood pressure 64 mm[Hg] [place] [facility] [employer] Work Phone: [facility] 03-18-2023 13:37-0500 Heart rate 72 /min [facility] [employer] Work Phone: [facility] 03-18-2023 13:37-0500 SaO2% (BldA) [Mass fraction] 98 % Ni Petznick DO Work Phone: [facility] 03-18-2023 13:37-0500 Systolic blood pressure 118 mm[Hg] Ni Petznick DO Work Phone: [facility] 07-20-2022 13:35-0400 Body temperature 97.4 [degF] DO Devon Ball Work Phone: [facility] 07-20-2022 13:35-0400 Diastolic blood pressure 50 mm[Hg] DO Devon Ball Work Phone: [facility] 07-20-2022 13:35-0400 Heart rate 67 /min DO Devon Ball Work Phone: [facility] 07-20-2022 13:35-0400 Respiratory rate 20 /min DO Devon Ball Work Phone: [facility] 07-20-2022 13:35-0400 Systolic blood pressure 98 mm[Hg] DO Devon Ball Work Phone: [facility] 06-29-2022 14:46-0400 Body height 193.04 cm DO Devon Ball Work Phone: [facility] 02-26-2022 13:11-0500 Body temperature 96.6 [degF] Hina Peterson MD Work Phone: [facility] 02-26-2022 13:11-0500 Diastolic blood pressure 75 mm[Hg] Hina Peterson MD Work Phone: [facility] 02-26-2022 13:11-0500 Heart rate 75 /min Hina Peterson MD Work Phone: [facility] 02-26-2022 13:11-0500 Systolic blood pressure 88 mm[Hg] Hina Peterson MD Work Phone: [facility] 02-05-2022 08:29-0500 Body temperature 96.69 [degF] [facility] Work Phone: [facility] 02-05-2022 08:29-0500 Diastolic blood pressure 42 mm[Hg] [facility] Work Phone: [facility] 02-05-2022 08:29-0500 Heart rate 79 /min [facility] Work Phone: [facility] 02-05-2022 08:29-0500 SaO2% (BldA) [Mass fraction] 100 % [facility] Work Phone: [facility] 02-05-2022 08:29-0500 Systolic blood pressure 72 mm[Hg] [facility] Work Phone: [facility] 01-12-2022 11:00-0500 Diastolic blood pressure 54 mm[Hg] Alissa Major VERIFICATION SPECIALIST.[employer] Work Phone: [facility] 01-12-2022 11:00-0500 Heart rate 88 /min Alissa Major VERIFICATION SPECIALIST.[employer] Work Phone: [facility] 01-12-2022 11:00-0500 SaO2% (BldA) [Mass fraction] 93 % Alissa Major VERIFICATION SPECIALIST.[employer] ME[employer] Work Phone: [facility] 01-12-2022 11:00-0500 Systolic blood pressure 96 mm[Hg] Alissa Major VERIFICATION SPECIALIST.R[employer] Work Phone: [facility] 01-12-2022 10:12-0500 Body temperature 97.9 [degF] Alissa Major VERIFICATION SPECIALIST.[employer] Work Phone: [facility] 01-12-2022 10:12-0500 Respiratory rate 18 /min Alissa Major VERIFICATION SPECIALIST.[employer] Work Phone: [facility] 11-17-2021 15:59-0400 Body height 193 cm No Reeder DO Work Phone: [facility] 11-17-2021 15:59-0400 Body weight 111.58 kg No Reeder DO Work Phone: [facility] 11-17-2021 15:59-0400 Diastolic blood pressure 59 mm[Hg] No Reeder DO Work Phone: [facility] 11-17-2021 15:59-0400 Heart rate 86 /min No Reeder DO Work Phone: [facility] 11-17-2021 15:59-0400 SaO2% (BldA) [Mass fraction] 97 % No Reeder DO Work Phone: [facility] 11-17-2021 15:59-0400 Systolic blood pressure 104 mm[Hg] No Reeder DO Work Phone: [facility] Encounters Encounter Date Encounter Type Care Provider Facility Start: 06-17-2023 End: 06-17-2023 ambulatory NI CABRERA Not Available Start: 05-19-2023 End: 05-19-2023 ambulatory [facility] Start: 04-11-2023 End: 04-11-2023 ambulatory Devon Moreira Other [employer] Other Start: 04-11-2023 Telephone encounter Devon NUNEZ [facility] Start: 03-18-2023 End: 03-18-2023 ambulatory NI CABRERA Not Available Start: 03-18-2023 End: 03-18-2023 Office outpatient visit 25 minutes Ni Cabrera DO Work Phone: [facility] [address] Comment on above: 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 ([facility]/HCC) (Primary Dx); 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 ([facility]/HCC); Type 1 diabetes mellitus with nephropathy ([facility]/HCC); Type 1 diabetes mellitus with hypoglycemia and without coma ([facility]/HCC); 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 ([facility]/HCC) Start: 02-17-2023 End: 02-17-2023 ambulatory Devon Moreira Other [employer] Other Start: 02-17-2023 Telephone encounter Devon NUNEZ [facility] Start: 01-14-2023 End: 01-14-2023 ambulatory Devon Moreira Other [employer] Other Start: 01-14-2023 Sbsq nursing facil c are/day minor complj 15 min [facility] Start: 12-10-2022 End: 12-10-2022 ambulatory Devon Moreira Other [employer] Other Start: 12-10-2022 Sbsq nursing facil c are/day minor complj 15 min [facility] Start: 11-12-2022 End: 11-12-2022 ambulatory Devon Moreira Other [employer] Other Start: 11-12-2022 Sbsq nursing facil c are/day minor complj 15 min [facility] Start: 10-16-2022 Refill Asia Pike MD Work Phone: [facility] Comment on above: Med Change Request Start: 10-12-2022 End: 10-12-2022 ambulatory Devon Moreira Other [employer] Other Start: 10-12-2022 Telephone encounter Devon Moreira [facility] Start: 10-08-2022 End: 10-08-2022 ambulatory Devon Moreira Other [employer] Other Start: 10-08-2022 Sbsq nursing facil c are/day new problem 25 min [facility] Start: 09-22-2022 [facility] Comment on above: Rx Refills Start: 09-10-2022 End: 09-10-2022 ambulatory Devon Moreira Other [employer] Other Start: 09-10-2022 Sbsq nursing facil c are/day new problem 25 min [facility] Start: 09-09-2022 End: 09-09-2022 ambulatory [facility] Start: 08-06-2022 End: 08-06-2022 ambulatory Devon Moreira Other [employer] Other Start: 08-06-2022 Sbsq nursing facil c are/day new problem 25 min Devon Moreira [facility] Start: 07-22-2022 End: 07-22-2022 ambulatory Devon Moreira Other [employer] Other Start: 07-22-2022 Telephone encounter [facility] Start: 07-20-2022 End: 07-20-2022 ambulatory Sadia Aguilar Facility:[facility] Start: 07-20-2022 End: 07-20-2022 ambulatory DO Devon Moreira Work Phone: [facility] Work Phone: Start: 07-20-2022 End: 07-20-2022 Discharged Recurring DO Devon Lillie Work Phone: [facility] [place] Work Phone: Start: 07-13-2022 End: 07-13-[address] DEVON MOREIRA Facility:[facility] Start: 07-10-2022 End: 07-10-[address] DEVON MOREIRA Facility:[facility] Start: 07-03-2022 End: 07-03-[address] DEVON MOREIRA Facility:[facility] Start: 06-26-2022 End: 06-26-[address] DEVON MOREIRA Facility:[facility] Start: 06-26-2022 End: 06-26-[address] DEVON MOREIRA Facility:[facility] Start: 06-25-2022 End: 06-25-2022 ambulatory Devon Moreira Other [employer] Other Start: 06-25-2022 Sbsq nursing facil c are/day minor complj 15 min Devon Moreira [facility] Start: 06-19-2022 End: 06-19-[address] DEVON MOREIRA Facility:[facility] Start: 06-15-2022 End: 07-15-2022 ambulatory SHAIKH Kate MURRAY Facility:[facility] Start: 06-12-2022 End: 06-12-[address] DOCTOR WALSH Facility:[facility] Start: 06-05-2022 Sbsq nursing facil c are/day new problem 25 min Devon Moreira [facility] Start: 06-05-2022 End: 06-05-[address] DEVON MOREIRA [facility] [employer] Other Start: 05-29-2022 End: 05-29-[address] DEVON MOREIRA Facility:[facility] Start: 05-22-2022 End: 05-22-[address] DEVON MOREIRA Facility:[facility] Start: 05-20-2022 End: 05-20-[address] DEVON MOREIRA Facility:[facility] Start: 05-18-2022 End: 06-12-2022 ambulatory SHAIKH Kate MURRAY Facility:[facility] Start: 05-15-2022 End: 05-15-[address] DEVON MOREIRA Facility:[facility] Start: 05-13-2022 End: 05-13-2022 ambulatory Van Olivarez APRN.RANGE MECHAN[employer] Work Phone: [facility] [place] Comment on above: results Start: 05-13-2022 E-mail encounter fro m caregiver Van Olivarez APRN.RANGE MECHANIC Work Phone: [facility] Start: 05-08-2022 End: 05-08-[address] DEVON MOREIRA Facility:[facility] Start: 05-07-2022 End: 05-07-2022 ambulatory Devon Moreira Other [place] [employer] Other Start: 05-07-2022 Sbsq nursing facil c are/day new problem 25 min Devon Moreira [facility] Start: 05-06-2022 End: 05-06-[address] DEVON MOREIRA Facility:[facility] Start: 05-01-2022 End: 05-01-[address] DEVON MOREIRA Facility:[facility] Start: 04-28-2022 ambulatory SHAIKH Kate MURRAY Facilit y:H1 Start: 04-24-2022 End: 04-24-[address] JACOBO MONZON . Facility:[facility] Start: 04-17-2022 End: 04-17-[address] EDVON MOREIRA Facility:[facility] Start: 04-15-2022 End: 04-16-[address] DEVON MOREIRA Facility:[facility] Start: 04-15-2022 End: 04-15-[address] DEVON MOREIRA Facility:[facility] Start: 04-13-2022 End: 04-13-[address] DEVON MOREIRA Facility:[facility] Start: 04-02-2022 ambulatory Van cortes APRN.CNP Work Phone: [facility] Start: 04-01-2022 End: 04-01-[address] DEVON MOREIRA Facility:[facility]1 Start: 03-22-2022 Refill Asia Pike MD Work Phone: [facility] Comment on above: Med Change Request Start: 03-21-2022 ambulatory SHAIKH Kate MURRAY Facilit y:H1 Start: 03-11-2022 End: 03-11-[address] DEVON MOREIRA Facility:[facility]1 Start: 02-27-2022 Refill Samira Serna [facility] Comment on above: Rx Refills Start: 02-26-2022 End: 02-26-2022 ambulatory DEVON MOREIRA Facility:[facility] [place] [facility] Start: 02-26-2022 End: 02-26-2022 Patient encounter [...] Start: 02-05-2022 End: 02-06-2022 ambulatory ARTUR CHEN Facility:[facility] [place] [facility] Start: 02-05-2022 End: 02-05-2022 Patient encounter procedure [facility] Work Phone: [facility] Comment on above: Kidney replaced by t ransplant (Primary Dx); 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; assisted current use of immunosuppressive drug Start: 01-26-2022 End: 01-26-[address] DEVON MOREIRA Facility:[facility] Start: 01-20-2022 Telephone encounter Van Olivarez APRN.RANGE MECHANIC Work Phone: [facility] Comment on above: Results Start: 01-19-2022 End: 01-19-[address] DEVON MOREIRA Facility:[facility]1 Start: 01-16-2022 ambulatory SHAIKH Kate MURRAY Facilit y:H1 Start: 01-12-2022 End: 01-12-2022 Subsequent hospital visit by physician Alissa Chavira APRN.RANGE MECHAN[employer] Work Phone: Angio Comment on above: ILIANA (acute kidney in jury) ([facility]) [N17.9] Start: 12-30-2021 End: 12-30-2021 ambulatory Paresh Fonseca MD Work Phone: Infectious Disease Comment on above: MRSA bacteremia (Arabella munira Dx); Diabetic foot ulcer with osteomyelitis (HCC) Start: 12-30-2021 End: 12-30-2021 Telemedicine consultation with patient Paresh Fonseca MD Work Phone: F [facility] Start: 12-29-2021 End: 12-29-[address] [...] Start: 12-08-2021 Orders Only Artur Burger ry VERIFICATION SPECIALIST.RANGE MECHANIC Work Phone: [facility] Comment on above: Kidney replaced by t ransplant (Primary Dx) Start: 12-07-2021 ambulatory Paresh Fonseca MD Work Phone: [facility] Comment on above: CoPat Start (copat s top 12/27/21) Start: 12-05-2021 Telephone encounter Paresh Fonseca MD Work Phone: Infectious Disease Comment on above: Patient Update (evus held discussion/) Start: 12-01-2021 Follow-up encounter [facility] Provider [facility] Start: 12-01-2021 Patient encounter procedure [facility] Prov ider [facility] Department Start: 11-23-2021 End: 11-28-2021 Evaluation [...] encounter Start: 11-14-2021 End: 11-15-[address] [facility] Start: 10-24-2021 End: 11-15-2021 ambulatory SHAIKH Kate MURRAY Facility:[facility]1 Start: 10-22-2021 End: 10-23-2021 ambulatory ASHLEY GARIBAY Facility:[facility]1 Start: 10-06-2021 ambulatory Van cortes VERIFICATION SPECIALIST.RANGE MECHAN[employer] Work Phone: [facility] Start: 09-30-2021 Refill Asia Pike MD Work Phone: [facility] Comment on above: Refill Request Start: 09-19-2021 End: 09-24-2021 Evaluation and management of inpatient DR PROSPER LEES Facility:[facility]1 Start: 09-18-2021 End: 09-19-[address] DEVON MOREIRA Facility:[facility] Start: 07-11-2021 Refill Asia Pike MD Work Phone: [facility] Comment on above: Refill Request Start: 06-05-2021 Telephone encounter Van Olivarez VERIFICATION SPECIALIST.R[employer] Work Phone: [facility] Comment on above: Results Start: 02-05-2021 End: 02-13-2021 ambulatory UNKNOWN PROVIDER Facility:[facility] Procedures Date Procedure Procedure Detail Performing Clinician Start: 05-19-2023 Follow-up visit Follow-up CAITY IBRAHIM Start: 03-18-2023 Hemoglobin glycosyla rk a1c Ni Cabrera DO Work Phone: Start: 02-05-2022 Creatinine other source Asia Pike MD Work Phone: Start: 02-05-2022 Urnls dip stick/tabl et rgnt auto w/o microscopy Asia Pike MD Work Phone: Start: 01-12-2022 Prothrombin time Alissa Chavira VERIFICATION SPECIALIST.[employer] Work Phone: Start: 12-01-2021 PACEMAKER CLINIC CHECK [facility] Provider Start: 11-29-2021 Microscopic examinat ion of blood, culture DR PROSPER LEES Comment on above: Performed By: #### B [id number] ####[facility] [address] [place], [place] [address]BhSkylar Leal Start: 11-27-2021 Insertion of Infusio n [...] renal transplant KIDNEY TRANSPLANT STATUS Van Sher VERIFICATION SPECIALIST.[employer] Work Phone: History of renal transplant Kidney replaced by transplant Artur Chen VERIFICATION SPECIALIST.RANGE MECHANIC Work Phone: History of renal transplant [...] [address] [place] [address] Ni Cabrera DO [address] [place] [address] [facility] [address] Start: 06-16-2023 Hemoglobin A1c measurement Diabetes: Hemoglobin A1C [facility] Start: 02-26-2023 BP CONTROLLED (<130/80) BP CONTROLLE D (<130/80) [facility] Start: 02-05-2023 BP CONTROLLED (<130/80) BP CONTROLLE D (<130/80) [facility] Start: 01-12-2023 BP CONTROLLED (<130/80) BP CONTROLLE D (<130/80) [facility] Start: 11-17-2022 BP CONTROLLED (<130/80) BP CONTROLLE D (<130/80) [facility] Start: 10-16-2022 Influenza vaccination C [facility] Start: 05-15-2022 Medicare Annual Wellness (AWV) Medicare Annual Wellness (AWV) [facility] Start: 04-08-2022 BP CONTROLLED (<130/80) BP CONTROLLE D (<130/80) [facility] Start: 02-15-2022 ADVANCE DIRECTIVE DISCUSSION ADVANCE DIRECTIVE DISCUSSION [facility] Start: 02-15-2022 DEPRESSION ASSESSMENT DEPRESSION ASS ESSMENT [facility] Start: 02-05-2022 COVID-19 VACCINE (5 - Yung risk series) COVID-19 VACCINE (5 - Yung risk series) [facility] Start: 11-27-2021 COVID-19 VACCINE (4 - Booster for Yung series) COVID-19 VACCINE (4 - Booster for Yung series) [facility] Start: 11-04-2021 Hemoglobin A1c/Hemoglobin.total in Blood HBA1C [facility] Start: 10-16-2021 Influenza vaccination C [facility] Start: 03-26-2021 COVID-19 VACCINE (3 - Yung risk 3-dose series) COVID-19 VACCINE (3 - Yung risk 3-dose series) [facility] Start: 03-26-2021 COVID-19 VACCINE (3 - Yung risk series) COVID-19 VACCINE (3 - Yung risk series) [facility] Start: 02-15-2021 ADVANCE DIRECTIVE DISCUSSION ADVANCE DIRECTIVE DISCUSSION [facility] Start: 02-15-2021 DEPRESSION ASSESSMENT DEPRESSION ASS ESSMENT [facility] Start: 01-05-2016 Hepatitis B screening URINE AL BUMIN:CREATININE RATIO [facility] Start: 07-31-2015 Pneumococcal Vaccine : 65+ Years (3 - PCV) Pneumococcal Vaccine: 65+ Years (3 - PCV) [facility] Start: 04-06-2015 Hemoglobin A1c/Hemoglobin.total in Blood HBA1C [facility] Start: 11-22-2010 Hepatitis B surface antibody level LDL CHOLESTEROL [facility] Start: 2009 ADULT PREVNAR-13 ADULT PREVNAR-13 Cl [facility] Start: 2009 PNEUMOVAX AGE 65 AND OVER WITH 5YR LOOKBACK (#1) PNEUMOVAX AGE 65 AND OVER WITH 5YR LOOKBACK (#1) [facility] Start: 1994 SHINGRIX VACCINE (1 of 2) SHINGRIX VACCINE (1 of 2) [facility] Start: 10-18-1963 HEPATITIS A (1 of 2 - Risk 2-dose series) HEPATITIS A (1 of 2 - Risk 2-dose series) [facility] Start: 10-18-1963 Hepatitis A Vaccine (1 of 2 - Risk 2-dose series) Hepatitis A Vaccine (1 of 2 - Risk 2-dose series) [facility] Start: 10-18-1963 SHINGRIX VACCINE (1 of 2) SHINGRIX VACCINE (1 of 2) [facility] Start: 10-18-1963 Urine microalbumin profile [facility] Start: 1962 ANNUAL PCP TEAM SALES DONOR RECRUITMENT REPRESENTATIVE MATTHEW DISEASE VISIT ANNUAL PCP TEAM CHRONIC DISEASE VISIT [facility] Start: 1956 Adult depression screening assessment DEPRESSION SCREENING [facility] Start: 1954 3 comp foot exam completed DIABETIC FOOT EXAM [facility] Start: 1954 Glaucoma screening Diabetes: R etinopathy Screening [facility] Start: 1954 Hepatitis C antibody , confirmatory test DILATED RETINAL EXAM [facility] Start: 1950 Pneumococcal Vaccine : 65+ (1 - PCV) Pneumococcal Vaccine: 65+ (1 - PCV) [facility] Start: 1950 PNEUMOCOCCAL: 65+ (1 - PCV) PNEUMOCOCCAL: 65+ (1 - PCV) [facility] Start: 1945 HEPATITIS A (1 of 2 - Risk 2-dose series) HEPATITIS A (1 of 2 - Risk 2-dose series) [facility] URINALYSIS, REFLEX MICROSCOPIC URINALYSIS, REFLEX MICROSCOPIC Lab Routine Screening for genitourinary condition Ordered: 10/06/2021 [facility] Work Phone: Comment on above: Ordered: 10/06/2021 URINALYSIS, REFLEX MICROSCOPIC URINALYSIS, REFLEX MICROSCOPIC Lab Routine Screening for genitourinary condition Ordered: 04/02/2022 [facility] Work Phone: Comment on above: Ordered: 04/02/2022 End: 11-17-2022 US LEG ARTERIAL PERIPH UNL VAS LAB US LEG ARTERIAL PERIPH UNL VAS LAB Vascular Lab Routine PAD (peripheral artery disease) (HCC) Nonhealing ulcer of heel (HCC) 1 Occurrences starting 11/17/2021 until 11/17/2022 [facility] Work Phone: Comment on above: 1 Occurrences starti ng 11/17/2021 until 11/17/2022 End: 11-17-2022 US LEG VEIN DVT UNL VAS LAB US LEG VEIN DVT UNL VAS LAB Vascular Lab Routine Acute deep vein thrombosis (DVT) of proximal end of right lower extremity (HCC) 1 Occurrences starting 11/17/2021 until 11/17/2022 [facility] Work Phone: Comment on above: 1 Occurrences starti ng 11/17/2021 until 11/17/2022 [facility] & VAS DANIEL BROTHERS CT & VAS [facility] Immunizations Immunization Date Immunization Notes Care Provider Fa [facility] 12-11-2021 COVID-19 booster vaccine, age 12+ yr, bivalent (PFIZER-BIONTECH) Paresh Fonseca MD Work Phone: [facility] 12-11-2021 influenza, high-dose , quadrivalent vaccine (FLUZONE HIGH DOSE QUADRIVALENT) Paresh Fonseca MD Work Phone: [facility] 12-11-2021 influenza virus vaccine, unspecified formulation [facility] 10-24-2021 influenza, high dose seasonal, preservative-free Ni Petznick DO Work Phone: [facility] 01-19-2019 influenza, high dose seasonal, preservative-free Ni Petznick DO Work Phone: [facility] 11-25-2017 Seasonal trivalent influenza vaccine, adjuvanted, preservative free Ni Petznick DO Work Phone: [facility] 11-05-2016 influenza, high dose seasonal, preservative-free Ni Petznick DO Work Phone: [facility] 07-30-2014 pneumococcal polysaccharide vaccine, 23 valent Ni Petznick DO Work Phone: [facility] 03-09-2011 influenza virus vaccine, unspecified formulation Van Olivarez VERIFICATION SPECIALIST.RANGE MECHANIC Work Phone: [facility] 12-17-2007 influenza virus vaccine, unspecified formulation Van Olivarez VERIFICATION SPECIALIST.RANGE MECHANIC Work Phone: [facility] Work Phone: 02-11-2006 influenza virus vaccine, unspecified formulation Van Olivarez VERIFICATION SPECIALIST.RANGE MECHANIC Work Phone: [facility] Work Phone: 12-07-2003 influenza virus vaccine, unspecified formulation Van Olivarez VERIFICATION SPECIALIST.RANGE MECHANIC Work Phone: [facility] Work Phone: 12-07-2003 pneumococcal polysaccharide vaccine, 23 valent Van Olivarez VERIFICATION SPECIALIST.[facility] Work Phone: [facility] Work Phone: NEGATED: Highlighted row has not occurred!12-10-2021 COVID-19 booster vaccine, age 12+ yr, bivalent (PFIZER-BIONTThe [employer]) Paresh Fonseca MD Work Phone: [facility] NEGATED: Highlighted row has not occurred!12-10-2021 influenza, high-dose, quadrivalent vaccine (FLUZONE HIGH DOSE QUADRIVALENT) Paresh Fonseca MD Work Phone: [facility] Payers Date Payer Category Payer Medicare MEDICARE MEDICAR E A AND B [id number] 2009-Present [phone] [address] [address] [place] [address] Medicare [id number] .[id number] 2009 Medicare [id number]. 1.13.159.2.7.3 .[id number] 2009 Unknown [employer] MEDICARE SUPPLEMENT [id number] 2009-Present [phone] [facility] [place] [address] Indemnity [id number] 1.2.840.842397.1.13.159.2.7.3 .454348.315 2009 Unknown 1.2.840.130548. 1.13.159.2.7.3 .141243.315 2009 Unknown [id number] 2.16.8 40.1.765477.19 2009 Unknown [id number] 1959 Medicare [id number] 1959 Self-pay 1944 Unknown [id number] 2.16.840.1.345954.3.579.2.732 1944 Unknown [id number] 2.16.840.1.830677.3.579.2.593 1944 Unknown [id number] 2.16.840.1.960324.3.579.2.593 1944 Unknown [id number] 2.16.840.1.960649.3.579.2.593 1944 Unknown [id number] 2.16.840.1.834618.3.579.2.593 1944 Unknown [id number] 2.16.840.1.638883.3.579.2.593 1944 Unknown [id number] 2.16.840.1.058150.3.579.2.593 1944 Unknown [id number] 2.16.840.1.126064.3.579.2.593 1944 Unknown [id number] 2.16.840.1.641249.3.579.2.593 1944 Unknown [id number] 2.16.840.1.079853.3.579.2.593 1944 Unknown [id number] 2.16.840.1.123756.3.579.2.593 1944 Unknown [id number] 2.16.840.1.422108.3.579.2.593 1944 Unknown [id number] 2.16.840.1.959017.3.579.2.593 1944 Unknown [id number] 2.16.840.1.211141.3.579.2.593 1944 Unknown [id number] 2.16.840.1.305013.3.579.2.593 1944 Unknown [id number] 2.16.840.1.442649.3.579.2.593 1944 Unknown [id number] 2.16.840.1.876768.3.579.2.593 1944 Unknown [id number] 2.16.840.1.502051.3.579.2.593 1944 Unknown [id number] 2.16.840.1.470095.3.579.2.593 1944 Unknown [id number] 2.16.840.1.629847.3.579.2.593 1944 Unknown [id number] 2.16.840.1.902472.3.579.2.593 1944 Unknown [id number] 2.16.840.1.328975.3.579.2.593 1944 Unknown [id number] 2.16.840.1.050461.3.579.2.593 1944 Unknown [id number] 2.16.840.1.984699.3.579.2.593 1944 Unknown [id number] 2.16.840.1.706612.3.579.2.593 1944 Unknown [id number] 2.16.840.1.435392.3.579.2.593 1944 Unknown [id number] 2.16.840.1.898047.3.579.2.593 1944 Unknown [id number] 2.16.840.1.124137.3.579.2.593 1944 Unknown [id number] 2.16.840.1.118699.3.579.2.593 1944 Unknown [id number] 2.16.840.1.295951.3.579.2.593 1944 Unknown [id number] 2.16.840.1.362943.3.579.2.593 1944 Unknown [id number] 2.16.840.1.240826.3.579.2.593 1944 Unknown [id number] 2.16.840.1.914192.3.579.2.593 1944 Unknown [id number] 2.16.840.1.587572.3.579.2.593 1944 Unknown [id number] 2.16.840.1.053475.3.579.2.593 1944 Unknown [id number] 2.16.840.1.240901.3.579.2.593 1944 Unknown [id number] 2.16.840.1.075933.3.579.2.593 1944 Unknown [id number] 2.16.840.1.318801.3.579.2.593 1944 Unknown [id number] 2.16.840.1.900561.3.579.2.593 1944 Unknown [id number] 2.16.840.1.257349.3.579.2.593 1944 Unknown [id number] 2.16.840.1.242883.3.579.2.593 1944 Unknown [id number] 2.16.840.1.566079.3.579.2.593 1944 Unknown [id number] 2.16.840.1.011380.3.579.2.593 1944 Unknown [id number] 2.16.840.1.531641.3.579.2.593 1944 Unknown [id number] 2.16.840.1.457682.3.579.2.593 1944 Unknown [id number] 2.16.840.1.223582.3.579.2.593 1944 Unknown [id number] 2.16.840.1.828389.3.579.2.593 1944 Unknown [id number] 2.16.840.1.650769.3.579.2.125 9 1944 Unknown [id number] 2.16.840.1.187787.3.579.2.125 9 Medicare Medicare Outpatient [id number] 2T [id number] Unknown [id number] 2.16.840.1.556907.3.579.2.593 Unknown [id number] 2.16.840.1.476461.3.579.2.593 Unknown [id number] 2.16.840.1.747159.3.579.2.531 Social History Date Type Detail Facility Start: 03-09-2011 End: 07-07-2022 Tobacco smoking status WYIS Ex-smoker [facility] Work Phone: End: 02-15-1975 History of tobacco use Current smoker [facility] Work Phone: End: 02-15-1975 History of tobacco use Cigarette Smoker [facility] Work Phone: Start: 04-08-2021 End: 02-26-2022 Alcohol intake Current drinker of alcohol (finding) [facility] Start: 1945 Sex Assigned At Not on file [facility] Start: 03-09-2011 End: 10-20-2022 Cigarettes smoked current (pack per day) - Reported 1 [facility] Work Phone: Start: 03-09-2011 End: 02-26-2022 Tobacco use and exposure Smokeless tobacco non-user [facility] Start: 09-25-2021 History SDOH Financial 5 [facility] Start: 09-25-2021 History SDOH Food Worry 1 [facility] Start: 09-25-2021 History SDOH Transpo rt Med 2 [facility] Start: 09-14-2021 End: 01-12-2022 Exposure to SARS-CoV-2 (event) Not sure [facility] Start: 02-26-2022 End: 10-20-2022 Sex Assigned At [facility] Work Phone: Start: 1945 Sex Assigned At Male F [facility] How hard is it for y ou to pay for the very basics like food, housing, medical care, and heating Not hard at all [facility] Work Phone: (I/We) worried shiloh er (my/our) food would run out before (I/we) got money to buy more. Never true [facility] Work Phone: In the past 12 month s, was there a time when you were not able to pay the mortgage or rent on time? No [facility] Work Phone: Start: 03-18-2023 Alcohol intake Ex-drinker (finding) [facility] How often to you hav e a drink containing alcohol? Never [facility] Medical Equipment Procedure Code Equipment Code Equipment Original Text Equipment Identifier Dates Tray Powerline S urecuff 5fr Polyurethane Catheter 1 Lumen Microintroducer - [id number] Start: 12-06-2021 Clinical Notes 06-05-2021 to [...] systolic. patient with friend/ dump truck driver from facility, we will take patient to the ER for evaluation ---- --------- Per dr. Alvarez 03/2021 Mr. Almonte, [place] , presents to clinic for routine follow [...] of the right coronary artery with robust zlbb-nj-btutu collaterals. 5. Normal global left ventricular systolic [...] Follow up with Dr. Galvez in the [facility] in the next 2 weeks; he may follow up with Dr. Orosco as needed for interventional issues. 5. Follow up wi (more content not included)... [facility] 04-11-2023 Evaluation note Encounter Date Diagnosis [...] (ICD-10 - Z89.619) WC dependent. 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 He is being transported by a dump truck driver. 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 CONTINUOUS BLOOD GLUC SENSOR ([employer] solar systemsSTYLE SHAAN 14 DAY SENSOR) MISC Inject 1 [...] mouth in the morning. documented in this encounterEx[facility] [id number] Evaluation note* Encounter Date Diagnosis Assessment Notes [...] are maintaining regular scheduled appts with their technical translator. No bleeding complications Dec, Hyperlipidemia LDL goal [...] fluid balance and to avoid dehydration. Dec, assisted (current) use of insulin (ICD-10 - Z79.4) [facility] Other 10-26-2023 Evaluation note* Encounter Date Diagnosis Assessment Notes Treatment Notes Treatment Clinical Notes Nov, Longstanding persistent atrial fibrillation (ICD-10 - I48.11) This patient is in NSR or rate controlled. This patient is anticoagulated to prevent thromboembolic events. They are maintaining regular scheduled appts with their technical translator. No bleeding complications Nov, Hyperlipidemia LDL goal [...] Z94.0) Monthly labs to transplant clinic Nov, assisted (current) use of insulin (ICD-10 - Z79.4) [facility] Other 09-28-2023 Evaluation note* Encounter Date Diagnosis [...] are maintaining regular scheduled appts with their technical translator. No bleeding complications Oct, Type 1 diabetes [...] - Z94.0) Continue routine surveillance labs. Oct, assisted (current) use of insulin (ICD-10 - Z79.4) [facility] Other 09-01-2023 Miscellaneous Notes* Telephone Encounter - Mary Martinez - 10/16/2022 1:08 PM EDT Pharmacy comment: REQUEST FOR 90 DAYS PRESCRIPTION. DX Code Needed. 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 No bleeding complications Sep, Type 1 diabetes [...] Z94.0) f/u transplant clinic Continue surveillance labs [facility] Other 08-08-2023 Miscellaneous Notes* Telephone Encounter - Ariadna Mcdowell Tech - 09/22/2022 8:58 AM EDT Pharmacy requesting refills as follows: Requested Prescriptions Pending Prescriptions Disp Refills tacrolimus IR (PROGRAF) 1 mg capsule Sig: Take 1 capsule by mouth DAILY AT 6 PM. Please review and advise. Ariadna Mcdowell, documented in this encounterThe [facility]07-[facility] Evaluation note* Encounter Date Diagnosis Assessment Notes Treatment Notes Treatment Clinical Notes Aug, Longstanding persistent atrial fibrillation (ICD-10 - I48.11) This patient is in NSR or rate controlled. This patient is anticoagulated to prevent thromboembolic events. They are maintaining regular scheduled appts with their technical translator. No s/s bleeding Aug, Type 1 diabetes [...] risk for cerebrovascular and cardiovascular disease. Aug, assisted (current) use of insulin (ICD-10 - Z79.4) Aug, Kidney transplant status (ICD-10 - Z94.0) Continue close surveillance w/ labs [facility] Other 07-26-2023 NoteUT Electrophysiology Consult Note Reason [...] systolic. patient with friend/ dump truck driver from facility, we will take patient to the ER for evaluation --------- Per dr. Alvarez 03/2021 Mr. Almonte, [place] , presents to clinic for routine follow [...] of the right coronary artery with robust dhys-po-fbezm collaterals. 5. Normal global left ventricular systolic [...] Follow up with Dr. Galvez in the [facility] in the next 2 weeks; he may follow up with Dr. Orosco as needed for interventional issues. 5. Follow up with Dr. Devon Moreira as scheduled. PMH: Past Medical History: Diagnosis Date Abnormal ECG Arrhythmia Atrial fibrillation (CMS/HCC) Chronic kidney disease Coronary artery disease Diabetes mellitus (CMS/HCC) (more content not included)...[facility]07-26-2023 NotePatient here for 1.5 year follow up and device check. Lightheaded in the office today, as BP is very low. He denies chest pain, SOB, palpitations, and bleeding on warfarin. Had routine labs last week. Review of Systems Musculoskeletal: Positive for arthritis, joint pain and myalgias. Neurological: Positive for light-headedness. All other systems reviewed and are negative.[facility] 08-06-2022 Evaluation note* Encounter Date Diagnosis [...] are maintaining regular scheduled appts with their technical translator. No bleeding complications Jul, Type 1 diabetes [...] risk for cerebrovascular and cardiovascular disease. Jul, assisted (current) use of insulin (ICD-10 - Z79.4) Jul, Kidney transplant status (ICD-10 - Z94.0) Monthly labs, ongoing surveillance from transplant clinic [facility] Other 05-15-2023 Progress note Author Sadia Aguilar [facility] June 29, 2022 2:47pm Note Date/Time June 29, 2022 2:46p m [facility] [address] [place] [address] Wound Center Provider Note Signed Patient: Alex Almonte MR#: [id number] : 1945 Acct:[id number] Age/Sex: 76 / M Copies to: DO Sadia Whyte, VERIFICATION SPECIALIST~ HPI Date of Visit Date of Visit: Date of Service: 06/29/2022 Time of Service: 14:45 Narrative HPI: 12/30/21 Alex is a 76 year old male presenting to [facility] wound care for aninitial visit for eval and treatment of a sacral/coccyx area pressure ulcer. He resides at [facility]. There is an BUSINESS MANAGEMENT PROFESSOR present for the visit. Medicalhoney gel will [...] his brief that was cleaned by this director underwriter sales as well as another nursing staff member, [...] from initial visit here Mode of Arrival/ Accounting Supervisor: Facility vehicle Assistive Device Used Today: Wheelchair and Indra Lives with:: Care/Nursing Facility Appetite Description: Within Normal Limits Who helps w/ dressing change?: Nursing Facility Why Do You Need Help?: Can't Reach Ulcer, Limited mobility and Taxing effort to leave home Smoking Status: Former smoker [facility] Medical History (Updated 03/03/22 @ 14:41 [...] Ulcer/Injury Staging: Unstageable Bed Appearance: Beefy Red, [place], Yellow and Rolled Edges Percent of Wound [...] <Electronically signed by DAVID Aguilar> 06/29/22 1447 [facility] Work Phone: 1(659) 213-176605-11-2023 Evaluation note* Encounter Date Diagnosis Assessment Notes [...] are maintaining regular scheduled appts with their technical translator. No bleeding complications June, Hyperlipidemia LDL goal <100 (ICD-10 - E78.5) Instructed on diet and exercise with continued statin therapy.Discussed the beneficial effects of lowering cholesterol in reducing the risk for cerebrovascular and cardiovascular disease. June, terminal computer operator (current) use of insulin (ICD-10 - Z79.4) June, Kidney transplant status (ICD-10 - Z94.0) No s/s rejection [facility] Other 04-24-2023 Progress note Author Sadia Aguilar [facility] June 08, 2022 2:10pm Note Date/Time June 08, 2022 2:1 0pm [facility] [address] [place] [address] Wound Center Provider Note Signed Patient: Alex Almonte MR#: [id number] : 1945 Acct:[id number] Age/Sex: 76 / M Copies to: DO Sadia Whyte APRN~ HPI Date of Visit Date of Visit: Date of Service: 06/08/2022 Time of Service: 14:07 Narrative HPI: 12/30/21 Alex is a 76 year old male presenting to [facility] wound care for aninitial visit for eval and treatment of a sacral/coccyx area pressure ulcer. He resides at [facility]. There is an BUSINESS MANAGEMENT PROFESSOR present for the visit. Medicalhoney gel will [...] staff members, follow up in few weeks 12/27/22 orders kept the same, xray result was negative for infection in the bone, will probably repeat this at the next visit if no improvement, nutrition labs are low and so dietitian consult was ordered, still might need surgery consult, again came to appt with large BM in his brief that was cleaned by this director underwriter sales as well as another nursing staff member, [...] from initial visit here Mode of Arrival/ Accounting Supervisor: Facility vehicle Assistive Device Used Today: Wheelchair and Indra Lives with:: Care/Nursing Facility Appetite Description: Within Normal Limits Who helps w/ dressing change?: Nursing Facility Why Do You Need Help?: Can't Reach Ulcer, Limited mobility and Taxing effort to leave home Smoking Status: Former smoker [facility] Medical History (Updated 03/03/22 @ 14:41 [...] Ulcer/Injury Staging: Unstageable Bed Appearance: Beefy Red, [place], Yellow and Rolled Edges Percent of Wound [...] DAVID Aguilar> 06/08/22 1410 [facility] Work Phone: 1(208) 431-507504-21-2023 Evaluation note* Encounter Date Diagnosis Assessment Notes [...] are maintaining regular scheduled appts with their technical translator. May, terminal computer operator (current) use of insulin (ICD-10 - Z79.4) May, Kidney transplant status (ICD-10 - Z94.0) routine labs per clinic. 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 No open ulcerations present Pain controlled [facility] Other 03-27-2023 Progress note Author Sadia Aguilar [facility] May 11, 2022 1:41pm Note Date/Time May 11, 2022 1:4 0pm [facility] [address] [place] [address] Wound Center Provider Note Signed Patient: Alex Almonte MR#: [id number] : 1945 Acct:[id number] Age/Sex: 76 / M Copies to: DO Sadia Whyte, VERIFICATION SPECIALIST~ HPI Date of Visit Date of Visit: Date of Service: 05/11/2022 Time of Service: 13:38 Narrative HPI: 12/30/21 Alex is a 76 year old male presenting to [facility] wound care for aninitial visit for eval and treatment of a sacral/coccyx area pressure ulcer. He resides at [facility]. There is an BUSINESS MANAGEMENT PROFESSOR present for the visit. Medicalhoney gel will [...] his brief that was cleaned by this director underwriter sales as well as another nursing staff member, [...] from initial visit here Mode of Arrival/ Accounting Supervisor: Facility vehicle Assistive Device Used Today: Wheelchair and Indra Lives with:: Care/Nursing Facility Appetite Description: Within Normal Limits Who helps w/ dressing change?: Nursing Facility Why Do You Need Help?: Can't Reach Ulcer, Limited mobility and Taxing effort to leave home Smoking Status: Former smoker [facility] Medical History (Updated 03/03/22 @ 14:41 [...] Ulcer/Injury Staging: Unstageable Bed Appearance: Beefy Red, Diver[place] and Yellow Percent of Wound Bed Granulated/Red: [...] 15 Dictated By: Sadia Aguilar APRN DD/ 37 Signed By: <Electronically signed by DAVID Aguilar> 05/11/22 134[address] [facility] Work Phone: 1(174) 925-296503-23-2023 Evaluation note* Encounter Date Diagnosis Assessment Notes [...] are maintaining regular scheduled appts with their technical translator. Apr, Type 1 diabetes mellitus with hyperglycemia [...] Z94.0) Serial labs by clinic tatiana Oshea [place] [employer] Other 03-10-2023 NoteHNO ID: [id number] Author: Keyur Brown MD Service: ? Author Type: Physician Type: Progress Notes Filed: 04/24/2022 10:32 AM Note Text: Encounter opened in error, patient not seen.[facility]02-28-2023 Progress note Author Sadia Aguilar [facility] April 14, 2022 2:19pm Note Date/Time April 14, 2022 2:18pm [facility] [address] [place] [address] Wound Center Provider Note Signed Patient: Alex Almonte MR#: [id number] : 1945 Acct:[id number] Age/Sex: 76 / M Copies to: DO Sadia Whyte APRN~ HPI Date of Visit Date of Visit: Date of Service: 04/14/2022 Time of Service: 14:18 Narrative HPI: 12/30/21 Alex is a 76 year old male presenting to [facility] wound care for aninitial visit for eval and treatment of a sacral/coccyx area pressure ulcer. He resides at [facility]. There is an BUSINESS MANAGEMENT PROFESSOR present for the visit. Medicalhoney gel will [...] his brief that was cleaned by this director underwriter sales as well as another nursing staff member, [...] from initial visit here Mode of Arrival/ Accounting Supervisor: Facility vehicle Assistive Device Used Today: Wheelchair and Indra Lives with:: Care/Nursing Facility Appetite Description: Within Normal Limits Who helps w/ dressing change?: Nursing Facility Why Do You Need Help?: Can't Reach Ulcer, Limited mobility and Taxing effort to leave home Smoking Status: Former smoker [facility] Medical History (Updated 03/03/22 @ 14:41 [...] Ulcer/Injury Staging: Unstageable Bed Appearance: Beefy Red, Divernon and Yellow Percent of Wound Bed Granulated/Red: [...] By: <Electronically signed by DAVID Aguilar> 04/14/221418 [facility] Work Phone: 1(395) 211-629602-16-2023 NotePatient Outreach (KIMBERLY) ALEX ALMONTE ([id number]) 1945 M TRN Date Time Provider Department 04/02/22 VAN OLIVAREZ During your visit today, we recorded the following information about you: Allergies As of Date: 04/02/2022 Noted Allergy Reaction PYRIDOSTIGMINE BROMIDE 08/04/2021 8 - GI Upset Date Reviewed: 02/26/2022 Reviewed by: Braden Abel MA - Fully Assessed Visit Diagnosis:Screening for genitourinary condition [Z13.89] Order(s):URINALYSIS, REFLEX MICROSCOPIC [EDL7786] Order #: [id number] Prescriptions as of 04/06/2022 - tacrolimus IR [...] by mouth daily with lunch. 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 DIABETES UNCOMPL ADULT-UNCONTRLLED [[id number]] 02/24/2002 KIDNEY TRANSPLANT STATUS [Z94.0] 09/07/2003 PROPHYLACTIC IMMUNOTHERAPY [Z29.8] 07/30/2006 FDC STEROIDS [[id number]] 07/30/2006 VITAMIN D DEFICIENCY NOS [E55.9] 09/07/2008 [...] diabetes mellitus with diabetic peripher*11/29/2021 Atherosclerosis of [place] artery of extremity w*11/29/2021 Malnutrition of moderate degree (HCC) [E44.0] 12/01/2021 Dermatitis associated with moisture [L30.8] 12/04/2021 Encounter Status:Closed by LUISA HOBBSUSER on 04/06/22[facility] 03-30-2022 Miscellaneous Notes* Telephone Encounter - Van [...] pharmacy. Katina Duque documented in [facility]The [facility] Progress note Author Sadia Aguilar [facility] March 24, 2022 3:00pm Note Date/Time March 24, 2022 2 :59pm [facility] [address] [place] [address] Wound Center Provider Note Signed Patient: Alex Almonte MR#: [id number] : 1945 Acct:[id number] Age/Sex: 76 / M Copies to: Devon Moreira,DO Sadia Aguilar, VERIFICATION SPECIALIST~ HPI Date of Visit Date of Visit: Date of Service: 03/24/2022 Time of Service: 14:58 Narrative HPI: 12/30/21 Alex is a 76 year old male presenting to [facility] wound care for aninitial visit for eval and treatment of a sacral/coccyx area pressure ulcer. He resides at [facility]. There is an BUSINESS MANAGEMENT PROFESSOR present for the visit. Medicalhoney gel will [...] his brief that was cleaned by this director underwriter sales as well as another nursing staff member, [...] from initial visit here Mode of Arrival/ Accounting Supervisor: Facility vehicle Assistive Device Used Today: Wheelchair and Indra Lives with:: Care/Nursing Facility Appetite Description: Within Normal Limits Who helps w/ dressing change?: Nursing Facility Why Do You Need Help?: Can't Reach Ulcer, Limited mobility and Taxing effort to leave home Smoking Status: Former smoker [facility] Medical History (Updated 03/03/22 @ 14:41 [...] Ulcer/Injury Staging: Unstageable Bed Appearance: Beefy Red, [place] and Yellow Percent of Wound Bed Granulated/Red: [...] <Electronically signed by DAVID Aguilar> 03/24/22 [address] [facility] Work Phone: 1(624) 302-809401-17-2023 Progress note Author Sadia Aguilar [facility] March 03, 2022 2:41pm Note Date/Time March 03, 2022 2 :41pm [facility] [address] [place] [address] Wound Center Provider Note Signed Patient: Alex Almonte MR#: [id number] : 1945 Acct:[id number] Age/Sex: 76 / M Copies to: DO Sadia Whyte APRN~ HPI Date of Visit Date of Visit: Date of Service: 03/03/2022 Time of Service: 14:38 Narrative HPI: 12/30/21 Alex is a 76 year old male presenting to [facility] wound care for aninitial visit for eval and treatment of a sacral/coccyx area pressure ulcer. He resides at [facility]. There is an BUSINESS MANAGEMENT PROFESSOR present for the visit. Medicalhoney gel will [...] his brief that was cleaned by this director underwriter sales as well as another nursing staff member, [...] from initial visit here Mode of Arrival/ Accounting Supervisor: Facility vehicle Assistive Device Used Today: Wheelchair and Indra Lives with:: Care/Nursing Facility Appetite Description: Within Normal Limits Who helps w/ dressing change?: Nursing Facility Why Do You Need Help?: Can't Reach Ulcer, Limited mobility and Taxing effort to leave home Smoking Status: Former smoker [facility] Medical History (Updated 03/03/22 @ 14:41 [...] Ulcer Pressure Ulcer/Injury Staging: Unstageable Bed Appearance: [place] and Yellow Percent of Wound Bed Granulated/Red: 90 Percent of Devitalized: 10 Length (cm): 2.2 Width (cm): 1.8 Depth (cm): 1.9 CM Sq: 3.960 Surrounding Tissue Appearance: [place], Hyperpigmented and Satellite lesions Surrounding Tissue Temp: [...] <Electronically signed by DAVID Aguilar> 03/03/22 14[address] [facility] Work Phone: 1(486) 370-610001-13-2023 Miscellaneous Notes* Telephone Encounter - RAUL Davidson - 02/27/2022 10:24 AM EST Patient phones requesting refills as follows: Per pts sister takes 1 mg in AM and 1 mg in PM Requested Prescriptions Pending Prescriptions Disp Refills tacrolimus IR (PROGRAF) 1 mg capsule Sig: Take 2 capsules by mouth DAILY (6 AM). Please review and advise. RAUL Davidson documented in this encounterThe [facility] Hospital01-12-2023 NoteHNO ID: [id number] Author: Hina Peterson MD Service: ? 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 Magic Cup Nobles with lunch aspirin, enteric coated (ASPIRIN, ENTERIC COATED) 81 mg EC tablet Take 1 tablet by mouth once daily. predniSONE (DELTASONE) 5 mg tablet TAKE 1 TABLET BY MOUTH EVERY DAY oxyCODONE IR (ROXICODONE) 5 mg immediate release tablet 1-2 tablets by ORAL/FEEDING TUBE route every 3 hours as needed. Food Supplement, Lactose-Free (ENSURE MAX (more content not included)... [facility]01-12-2023 History of Present illness Narrative* Hina Peterson MD - 02/26/2022 4:25 PM EST Images from the original note were not included. 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 Patient on mycophenolate mofetil ,cellcept and prednisone 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) 11/29/2021 Osteomyelitis ([facility]) 11/29/2021 Paroxysmal atrial fibrillation ([facility]) Renal transplant, status post SA node dysfunction ([facility]) s/p pacemaker Type 2 diabetes mellitus with diabetic neuropathy, with long-term current use of insulin ([facility]) 02/24/2002 PAST SURGICAL HISTORY Procedure Laterality [...] by mouth daily with lunch. Magic Cup Nobles with lunch aspirin, enteric coated (ASPIRIN, ENTERIC [...] TIME: 4:26 PM documented in this encounterThe [facility] Hospital01-05-2023 Miscellaneous Notes* Telephone Encounter - Gwen [...] Home and cell number(Ask for Alex's nurse) [phone] Diagnosis 4 mo f/u wound check Best regardsYumiko documented in this encounterThe [facility] Hospital01-05-2023 Miscellaneous Notes* Telephone Encounter - Augusta [...] Augusta Medrano RN documented in this encounterThe [facility] Hospital01-04-2023 Miscellaneous Notes* Telephone Encounter - Martina [...] Mercedez Tavares MA documented in this encounterThe [facility]12-27-2022 Progress note Author Sadia Aguilar [facility] February 10, 2022 3:47pm Note Date/Time February 10, 2022 3:47pm [facility] [address] [place] [address] Wound Center Provider Note Signed Patient: Alex Almonte MR#: [id number] : 1945 Acct:[id number] Age/Sex: 76 / M Copies to: DO Sadia Whyte APRN~ HPI Date of Visit Date of Visit: Date of Service: 02/10/2022 Time of Service: 15:44 Narrative HPI: 12/30/21 Alex is a 76 year old male presenting to [facility] wound care for aninitial visit for eval and treatment of a sacral/coccyx area pressure ulcer. He resides at [facility]. There is an BUSINESS MANAGEMENT PROFESSOR present for the visit. Medicalhoney gel will [...] his brief that was cleaned by this director underwriter sales as well as another nursing staff member, few weeks to follow up Subjective Pain Coccyx: Pain Description: Intermittent Pain Intensity: 0 Wound/Ulcer History When did wound start?: 4 weeks ago- from initial visit here Mode of Arrival/ Accounting Supervisor: Facility vehicle Assistive Device Used Today: Wheelchair and Indra Lives with:: Care/Nursing Facility Appetite Description: Within Normal Limits Who helps w/ dressing change?: Nursing Facility Why Do You Need Help?: Can't Reach Ulcer, Limited mobility and Taxing effort to leave home Smoking Status: Former smoker [facility] Medical History (Updated 01/20/22 @ 14:21 [...] Ulcer Pressure Ulcer/Injury Staging: Unstageable Bed Appearance: [place] and Yellow Percent of Wound Bed Granulated/Red: 90 Percent of Devitalized: 10 Length (cm): 2.5 Width (cm): 2.3 Depth (cm): 2.1 CM Sq: 5.750 Surrounding Tissue Appearance: [place], Hyperpigmented and Satellite lesions Surrounding Tissue Temp: [...] <Electronically signed by DAVID Aguilar> 02/10/22 [address] [facility] Work Phone: [phone]) 956-194112-22-2022 NoteHNO ID: [id number] Author: Asia Pike MD Service: ? Author Type: Physician Type: Progress Notes Filed: 02/05/2022 9:38 AM Note Text: [facility] [place] Transplant Follow up Portions of this note [...] date with medications. Patient brought paperwork from [facility] with all medications being received. Patient unsure if they have been drawing labs regularly. Last Tac from 01/19: 12.9 and K 5.9. In need of current labs. Lab orders will be sent with patient and follows as below: Kidney and Pancreas Transplant Standing Lab Orders [address] [facility] [address] [place], [place] [address] February 05, 2022 Alex Almonte 1945 [id number] STANDARD TESTING: Diagnosis Codes: Z94.0 Kidney Transplant [...] AT YOUR LABORATORY FACILITY AND FAX TO [phone]. PLEASE CALL [phone]. Provider: Dr. Pike Current Outpatient Medications Medication [...] by mouth daily with lunch. Magic Cup Nobles with lunch aspirin, enteric coated (ASPIRIN, ENTERIC COATED) 81 mg EC tablet Take 1 tablet by mouth once daily. atorvastatin (LIPITOR) 40 mg tablet 1 tablet by ORAL/FEEDING TUBE route daily at bedtime. (more content not included)...[facility]12-22-2022 History of Present illness Narrative* Asia Pike MD - 02/05/2022 8:20 AM EST Images from the original note were not included. [facility] [place] Transplant Follow up Portions of this note [...] date with medications. Patient brought paperwork from [facility] with all medications being received. Patient unsure if they have been drawing labs regularly. Last Tac from 12/5: 12.9 and K 5.9. In need of current labs. Lab orders will be sent with patient and follows as below: Kidney and Pancreas Transplant Standing Lab Orders [address] [place], [place] [address] February 05, 2022 Alex Almonte 1945 [id number] STANDARD TESTING: Diagnosis Codes: Z94.0 Kidney Transplant [...] AT YOUR LABORATORY FACILITY AND FAX TO [phone]. PLEASE CALL [phone]. Provider: Dr. Pike Current Outpatient Medications Medication [...] by mouth daily with lunch. Magic Cup Nobles with lunch aspirin, enteric coated (ASPIRIN, ENTERIC [...] appetite All other system reviews negative. Augusta Medrano, vocational services specialist: February 05, 2022 9:34 AM I have [...] Asia Pike MD documented in this encounterThe [facility] Hospital12-06-2022 Progress note Author Sadia Aguilar [facility] January 20, 2022 2:21pm Note Date/Time January 20, 2022 2 :21pm [facility] [address] [place] [address] Wound Center Provider Note Signed Patient: Alex Almonte MR#: [id number] : 1945 Acct:[id number] Age/Sex: 76 / M Copies to: DO Sadia Whyte APRN~ HPI Date of Visit Date of Visit: Date of Service: 01/20/2022 Time of Service: 14:17 Narrative HPI: 12/30/21 Alex is a 76 year old male presenting to [facility] wound care for aninitial visit for eval and treatment of a sacral/coccyx area pressure ulcer. He resides at [facility]. There is an BUSINESS MANAGEMENT PROFESSOR present for the visit. Medicalhoney gel will [...] from initial visit here Mode of Arrival/ Accounting Supervisor: Facility vehicle Assistive Device Used Today: Wheelchair and Indra Lives with:: Care/Nursing Facility Appetite Description: Within Normal Limits Who helps w/ dressing change?: Nursing Facility Why Do You Need Help?: Can't Reach Ulcer, Limited mobility and Taxing effort to leave home Smoking Status: Former smoker [facility] Medical History (Updated 01/20/22 @ 14:21 [...] Ulcer Pressure Ulcer/Injury Staging: Unstageable Bed Appearance: [place] and Yellow Percent of Wound Bed Granulated/Red: 40 Percent of Devitalized: 60 Length (cm): 5.2 Width (cm): 3.4 Depth (cm): 1.8 CM Sq: 17.680 Surrounding Tissue Appearance: [place] and Hyperpigmented Surrounding Tissue Temp: Warm Drainage [...] <Electronically signed by DAVID Aguilar> 01/20/22 14[address] [facility] Work Phone: 1(351) 869-507012-06-2022 Miscellaneous Notes* Telephone Encounter - Van Olivarez APRN.RANGE MECHANIC - 01/20/2022 1:12 PM EST Labs noted from yesterday. Pt is currently residing at [facility], I spoke with the Nurse, the results has been addressed by Physician caring for pt. He had been placed on Chlor Con and this has been discontinued and hyperkalemia has been treated. Van Olivarez APRN.DIAMANTE documented in this encounterThe [facility]vue Hospital11-28-2022 Surgical operation note* Brief Op Note - Misbah Landis PA-C - 01/12/2022 10:41 AM EST BRIEF OPERATIVE / PROCEDURE NOTE LOG ID: [id number] SURGERY/PROCEDURE DATE: 01/12/2022 INCISION/PROCEDURE START TIME: 10:32 AM INCISION CLOSE/PROCEDURE END TIME: 10:35 AM SURGEON(S)/PROCEDURALIST(S) AND GOODS LAYER(S): Misbah Landis PA-C SURGERY/PROCEDURE(S): Removal tunneled vascular access catheter under local anesthesia ANESTHESIA: Procedural Sedation FINDINGS: Catheter removed intact ESTIMATED BLOOD LOSS: 0 ml SPECIMENS: None COMPLICATIONS: None PRE-OP/PRE-PROCEDURE DIAGNOSIS: Foot Ulcer POST-OP/POST-PROCEDURE DIAGNOSIS: Same as Preop SIGNATURE: Misbah Landis PA-C PATIENT NAME: Alex Almonte DATE: January 12, 2022 TIME: 10:42 AM documented in this encounterThe [facility]vue Hospital11-22-2022 Nurse Note* Laxmi Archibald RN - 01/06/2022 1:55 PM EST Pre-procedure instructions: Contacted patient's sister, Munira Brothers and nurse at [facility] ([phone]) andconfirmed appt. for Gerhard removal scheduled on 01/12/22, at [place] [facility]. If instructions are not followed your [...] signed. Arrival at 9:30am to desk QB-1 ([facility]) and check in for your procedure. Short Filler Bunch Machine Operator/Transportation: How will you be arriving for your procedure? Ambulance service. To be arranged by [facility]. If you develop any of the following symptoms before your procedure, please call [phone]. Chills, joint pain, rash, sore throat, cough, loss of smell, reddened eyes, vomiting, abdominal pains, diarrhea, loss of taste, severe headache, weakness, bruising or bleeding, fever, muscle pain, shortness of breath Recovery expectations: You can expect to be in recovery for 30 minutes following the procedure. Written instructions provided to patient via [employer] If you have any questions please call [phone] documented in this encounterThe [facility] Hospital11-15-2022 Progress note Author Sadia Aguilar [facility] December 30, 2021 1:49pm Note Date/Time December 30, 2021 1:49pm [facility] [address] [place] [address] Wound Center Provider Note Signed Patient: Alex Almnote MR#: [id number] : 1945 Acct:[id number] Age/Sex: 76 / M Copies to: DO Sadia Whyte APRN~ HPI Date of Visit Date of Visit: Date of Service: 12/30/2021 Time of Service: 13:44 Narrative HPI: 12/30/21 Alex is a 76 year old male presenting to [facility] wound care for aninitial visit for eval and treatment of a sacral/coccyx area pressure ulcer. He resides at [facility]. There is an BUSINESS MANAGEMENT PROFESSOR present for the visit. Medicalhoney gel will [...] start?: 4 weeks ago Mode of Arrival/ Accounting Supervisor: Facility vehicle Assistive Device Used Today: Wheelchair and Indra Lives with:: Care/Nursing Facility Appetite Description: Within Normal Limits Who helps w/ dressing change?: Nursing Facility Why Do You Need Help?: Can't Reach Ulcer, Limited mobility and Taxing effort to leave home Smoking Status: Former smoker [facility] Medical History (Updated 12/30/21 @ 13:49 [...] 0.1 CM Sq: 38.500 Surrounding Tissue Appearance: [place] and Hyperpigmented Surrounding Tissue Temp: Warm Drainage [...] <Electronically signed by DAVID Aguilar> 12/30/21 [address] [facility] Work Phone: 1(932) 941-472811-15-2022 History of Present illness Narrative* Paresh Fonseca [...] currently at [facility] in [facility] Seen on video together with [...] by mouth daily with lunch. Magic Cup Nobles with lunch aspirin, enteric coated (ASPIRIN, ENTERIC [...] 76 year old male from [facility]. 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 History of PAD CAD status post CABG, diabetes, atrial fibrillatioN He originally presented [facility] for having altered mental status [...] 3. Status post right heel I&D at [facility] on 11/24/2021. 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 4. CKD - s/p gerhard placement 5. immunocompromised Status post right open above the ankle [id number] - Enterobacter and MRSA from cultures Gram-positive [...] will need to coordinate with his SNF [phone] --our ID office will need to arrange for IR gerhard removal. Return to ID as needed 10 Minutes spent via virtual visit. SIGNATURE: Paresh Fonseca MD PATIENT NAME: Alex Almonte DATE: December 30, 2021 TIME: 9:52 AM documented in this encounterThe [facility]vue Hospital11-01-2022 Miscellaneous Notes* Telephone Encounter - Sulma Pardo - 12/16/2021 3:13 PM EDT Pt director of music therapy is requesting orders for Stomp ampushield to be taken off pressure relief because it is causing sores on the thigh. Thanks, Sulma Pardo Lacquer Coater documented in this encounterThe Bellevue Hospital10-31-2022 Miscellaneous Notes* Telephone Encounter - Gwen Alfredo Adm Asst I - 12/15/2021 4:11 PM EDT Rupa LYLES from [facility] [phone] called to report IV Vancomycin was started until today. Patient missed 3 days, should patient makeup missed doses? Please advise. Gwen Alfredo Adm Asst I documented in this encounterThe Bellevue Hospital10-21-2022 Instructions* Patient Instructions* Paresh Fonseca MD [...] serious illness Are taking any medications (prescription, dzfz-tvi-exciscq, vitamins, or herbal products) How will I [...] treatment or prevention of COVID-19 go to https://www.fda.gov/hrwuhholk-xfwihjtiqkfw-tmb- response/cft-epshk-owygfgmmfj-zwq-uepjlv-vdzmhluma/grbydetam-oel-ppdcwnoscnudq for more information. It is your choice [...] not go away. Report side effects to [employer] at www.Alltuition.gov/medCoVi Technologies or call 6-725-EIA-1346 or call [employer] . Additional Information If you have questions, visit the website or call the telephone number provided below. Website Telephone number http://[employer] How can I learn more about COVID-19? Ask your healthcare provider. Visit https://www.cdc.gov/COVID19 Contact your local or state public health department. What is an Emergency Use Authorization? The [place] FDA has made EVUSHELD (tixagevimab co-packaged with cilgavimab) available under an emergency access mechanism called an Emergency Use Authorization EUA. The EUA is supported by a [place] of Health and Human Service (HHS) declaration [...] monohydrate, polysorbate 80, sucrose, water. Distributed by: [employer] [place], [place] Manufactured for: [employer] [place], [place] [employer] 2021. All rightsreserved. documented in this encounterThe Bellevue Hospital10-21-2022 Miscellaneous Notes* Telephone Encounter - Paresh Fonseca MD - 12/05/2021 3:05 PM EDT Evusheld (tixagevimab/cilgavimab) Eligibility and Patient Discussion The patient agrees to receive Evusheld (tixagevimab 300 mg and cilgavimab 300 mg) at [place]. The patient verbalized understanding of repeating a COVID test 72 hours prior to the injections. called up patient in response to her [employer] message today she tested covid negative on a rapid test on Wednesday this week Discussed evushed fact sheet and she agrees to proceed she will retest again today to be scheduled for Friday 12/[facility] Paresh Fonseca MD documented in this encounterThe Bellevue Hospital10-03-2022 Instructions* Patient Instructions* No Reeder DO - 11/17/2021 4:26 PM EDT -- continue coumadin -- will get vascular ultrasound for vein and artery of your right leg -- will have you see my interventional cardiology partner regarding your peripheral artery disease and if your artery disease is impairing your wound healing for the leg ulcer documented in this encounterThe Bellevue Hospital10-03-2022 History of Present illness Narrative* No Redeer DO - 11/17/2021 3:53 PM EDT Images from the original note were not included. Heart [facility] Vascular [place] [facility]dugo Department of Cardiovascular Medicine SECTION [...] Leg elevation. No Reeder DO, [facility] Vascular Medicine documented in this encounterThe Bellevue Hospital08-16-2022 History of Past illness Narrative* Problem Noted Date Resolved Date Altered tissue perfusion documented as of this encounter (statuses as of 09/30/2021) [address]16-2022 History of Past illness Narrative* Problem Noted Date Resolved Date Altered tissue perfusion documented as of this encounter (statuses as of 10/09/2021) [address]16-2022 History of Past illness Narrative* Problem Noted Date Resolved Date Altered tissue perfusion documented as of this encounter (statuses as of 11/18/2021) [address]16-2022 History of Past illness Narrative* Problem Noted Date Resolved Date Altered tissue perfusion documented as of this encounter (statuses as of 12/01/2021) [address]16-2022 History of Past illness Narrative* Problem Noted Date Resolved Date Altered tissue perfusion documented as of this encounter (statuses as of 12/05/2021) [address]16-2022 History of Past illness Narrative* Problem Noted Date Resolved Date Altered tissue perfusion 16/2 022 documented as of this encounter (statuses as of 12/08/2021) [address]16-2022 History of Past illness Narrative* Problem Noted Date Resolved Date Altered tissue perfusion 16/2 022 documented as of this encounter (statuses as of 12/08/2021) [address]16-2022 History of Past illness Narrative* Problem Noted Date Resolved Date Altered tissue perfusion 16/2 022 documented as of this encounter (statuses as of 12/12/2021) [address]16-2022 History of Past illness Narrative* Problem Noted Date Resolved Date Altered tissue perfusion 16/2 022 documented as of this encounter (statuses as of 12/15/2021) [address]16-2022 History of Past illness Narrative* Problem Noted Date Resolved Date Altered tissue perfusion 16/2 022 documented as of this encounter (statuses as of 12/16/2021) [address]16-2022 History of Past illness Narrative* Problem Noted Date Resolved Date Altered tissue perfusion 16/2 022 documented as of this encounter (statuses as of 12/31/2021) [address]16-2022 History of Past illness Narrative* Problem Noted Date Resolved Date Altered tissue perfusion 16/2 022 documented as of this encounter (statuses as of 01/13/2022) [address]16-2022 History of Past illness Narrative* Problem Noted Date Resolved Date Altered tissue perfusion 16/2 022 documented as of this encounter (statuses as of 01/20/2022) [address]16-2022 History of Past illness Narrative* Problem Noted Date Resolved Date Altered tissue perfusion 16/2 022 documented as of this encounter (statuses as of 02/06/2022) [address]16-2022 History of Past illness Narrative* Problem Noted Date Resolved Date Altered tissue perfusion /16/2 022 documented as of this encounter (statuses as of 02/20/2022) [address]16-2022 History of Past illness Narrative* Problem Noted Date Resolved Date Altered tissue perfusion /16/2 022 documented as of this encounter (statuses as of 02/26/2022) [address]16-2022 History of Past illness Narrative* Problem Noted Date Resolved Date Altered tissue perfusion documented as of this encounter (statuses as of 02/27/2022) [address]16-2022 History of Past illness Narrative* Problem Noted Date Resolved Date Altered tissue perfusion documented as of this encounter (statuses as of 03/21/2022) [address]16-2022 History of Past illness Narrative* Problem Noted Date Resolved Date Altered tissue perfusion documented as of this encounter (statuses as of 03/30/2022) [address]16-2022 History of Past illness Narrative* Problem Noted Date Resolved Date Altered tissue perfusion documented as of this encounter (statuses as of 04/06/2022) [address]16-2022 History of Past illness Narrative* Problem Noted Date Resolved Date Altered tissue perfusion documented as of this encounter (statuses as of 05/13/2022) [address]16-2022 History of Past illness Narrative* Problem Noted Date Diagnosed Date Resolved Date Altered tissue perfusion documented as of this encounter (statuses as of 2022) [address]16-2022 History of Past illness Narrative* Problem Noted Date Diagnosed Date Resolved Date Altered tissue perfusion documented as of this encounter (statuses as of 10/29/2022) [facility]08-16-2022 Miscellaneous Notes* Telephone Encounter - Katina [...] pharmacy. Katina Duque [facility] Miscellaneous Notes* Telephone Encounter - Van [...] RILEY: Yes Please review and advise. Rosibel Yehleela Adm [facility] Miscellaneous Notes* Telephone Encounter - Van Olivarez APRN.CNP - 06/05/2021 4:46 PM EDT Spoke with pt regarding latest results, scr. at baseline. TAC level 8.6 prev two levels in 5 range.He believes latest level would be 12hr trough. No changes for now, if next level >7, can consider if reduction appropriate. He understands. Van Olivarez APRN.CNP [facility] Diagnosis Screening for genitourinary condition Screening for other and unspecified genitourinary condition [facility]* Diagnosis Acute deep vein thrombosis (DVT) of proximal end of right lower extremity (HCC)- Primary PAD (peripheral artery disease) ([facility]) Peripheral vascular disease, unspecified Nonhealing ulcer of heel (HCC) Anticoagulation management encounter Encounter for therapeutic drug monitoring documented in this encounter [facility]* Diagnosis Encounter for prophylactic measures, unspecified- Primary documented in this encounter [facility] note* Diagnosis Kidney replaced by transplant- Primary documented in this encounter [facility]* Diagnosis MRSA bacteremia- Primary Bacteremia Diabetic foot ulcer with osteomyelitis (HCC) Type II or unspecified type diabetes mellitus with other specified manifestations, not stated as uncontrolled ILIANA (acute kidney injury) ([facility]) Acute kidney failure, unspecified documented in this encounter [facility]* Diagnosis Kidney replaced by transplant- Primary 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 terminal computer operator current use of immunosuppressive drug documented in [facility]* Diagnosis Hx of BKA, right ([facility])- Primary PAD (peripheral artery disease) ([facility]) Peripheral vascular disease, unspecified Mixed hyperlipidemia due to type 2 diabetes mellitus ([facility]) Type II or unspecified type diabetes mellitus with renal manifestations, uncontrolled(250.42) Type II or unspecified type diabetes mellitus with renal manifestations, uncontrolled Type 2 diabetes mellitus with diabetic neuropathy, with long-term current use of insulin (HCC) Type 2 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, with long-term current use of insulin ([facility]) Paroxysmal atrial fibrillation ([facility]) Atrial fibrillation documented in this encounter [facility] note* Diagnosis Screening for genitourinary condition Screening for other and unspecified genitourinary condition documented in this encounter [facility]* Diagnosis Onset Date Resolution Status At high risk for skin breakdown chronic Diabetes chronic Fecal incontinence chronic Limited mobility chronic Poor appetite chronic Pressure ulcer of sacral region, unstageable chronic Candidiasis resolved [facility] Work Phone: Evaluation noteNo [email or web address] Other Evaluation note* Diagnosis Kidney replaced by transplant- Primary documented in this encounter [facility]* Diagnosis Type 1 diabetes mellitus [...] History B/L Rib fracture Surgical History cataract 2015 Surgical History renal transplant 1998 Surgical History ORIF R/fibula/med malleolus Surgical History CABG Surgical History IVC filter 2014 Surgical History Left BKA 2002 Surgical History PM Surgical History L1/2 Surgical History AMPUTATION OF LOWER LEG 2021 Surgical History PART REMOVAL OF ANKLE/HEEL 2021 Surgical History INS ENDOVAS VENA CAVA FILTR 202 2 Surgical History COLONOSCOPY 1995,2001, 2014 Hospitalization History see above [employer] Other Progress note Author Sadia Aguilar [facility] July 20, 2022 1:48pm Note Date/Time July 20, 2022 1:48p m [facility] [address] [place] [address] Wound Center Provider Note Signed Patient: Alex Almonte MR#: [id number] : 1945 Acct:[id number] Age/Sex: 76 / M Copies to: DO Sadia Whyte, DAVID~ HPI Date of Visit Date of Visit: Date of Service: 07/20/2022 Time of Service: 13:46 Narrative HPI: 12/30/21 Alex is a 76 year old male presenting to [facility] wound care for aninitial visit for eval and treatment of a sacral/coccyx area pressure ulcer. He resides at [facility]. There is an BUSINESS MANAGEMENT PROFESSOR present for the visit. Medicalhoney gel will [...] his brief that was cleaned by this director underwriter sales as well as another nursing staff member, [...] from initial visit here Mode of Arrival/ Accounting Supervisor: Facility vehicle Assistive Device Used Today: Wheelchair and Indra Lives with:: Care/Nursing Facility Appetite Description: Within Normal Limits Who helps w/ dressing change?: Nursing Facility Why Do You Need Help?: Can't Reach Ulcer, Limited mobility and Taxing effort to leave home Smoking Status: Former smoker [facility] Medical History (Updated 03/03/22 @ 14:41 [...] 10 Dictated By: Sadia Aguilar APRN DD/ Signed By: <Electronically signed by DAVID Aguilar> 07/20/22 [address] [facility] Work Phone: Reason for referral (narrative)* Outpatient Procedure (Routine) - Authorized Specialty Diagnoses / Procedures Referred By Felicia carreno [facility] Diagnoses PAD (peripheral artery disease) (HCC) Nonhealing ulcer of heel (HCC) Procedures US LEG ARTERIAL PERIPH UNL VAS LAB DUP-SCAN LXTR ART/ARTL BPGS UNI/LMTD STUDY No Reeder DO [address] [place] [id number] [facility] [address] [address] Referral ID Status Reason Start Date Expiration Date Visits Requested Visits Authorized [id number] Authorized Auto-Generat ed Referral 11/17/2021 11/17/2022 1 1 * Outpatient Procedure (Routine) - Authorized Specialty Diagnoses / Procedures Referred By Contac t Referred To Contact [facility] Diagnoses Acute deep vein thrombosis (DVT) of proximal end of right lower extremity (HCC) Procedures US LEG VEIN DVT UNL VAS LAB DUP-SCAN XTR VEINS UNILATERAL/LIMITED STUDY No Reeder DO [address] [place] [address] [place] [address] Referral ID Status Reason Start Date Expiration Date Visits Requested Visits Authorized [id number] Authorized Auto-Generat ed Referral 11/17/2021 11/17/2022 1 1 * Consult, Test, Treat (Routine) - Authorized Specialty Diagnoses / Procedures Referred By Contac t Referred To Contact Cardiology Diagnoses PAD (peripheral artery disease) ([facility]) Nonhealing ulcer of heel ([facility]) Procedures CONSULT TO CARDIOLOGY OFFICE/OUTPATIENT [facility] 60-[place] [address] [place] [address] Referral ID Status Reason Start Date Expiration Date Visits Requested Visits Authorized [id number] Authorized PCP Requested Referral 11/17/2021 11/17/2022 1 1 [facility] Summary Purpose Family History No Family History Records Found Relationship Condition Age at Onset Recorded Date/T kartik father Aneurysm Unknown father Parkinson's disease Unknown Advance Directives No Advanced Directives Records FoundDocuments on File Type Date Recorded Patient Park Ranger Expl anation Advance Directive(s) Latest Code Status [...] Maker Relationship: M ajority of Adult Siblings (dental detail representative) DNR-CCA 09/26/2021 11:56 AM 10/01/2021 2:18 [...] Decision Maker Relationship: Majority of Adult Siblings (dental detail representative) Code Status History Code Status Date [...] and content) DATE CREATED AUTHOR 02/20/2021 [facility] DATE CREATED AUTHOR AUTHOR'S ORGANIZ ATION 07/25/2022 [facility] DATE CREATED AUTHOR AUTHOR'S ORGANIZ ATION 08/16/2022 [facility] DATE CREATED AUTHOR AUTHOR'S ORGANIZ ATION 01/14/2023 [facility] DATE CREATED AUTHOR AUTHOR'S ORGANIZ ATION 05/25/2023 [facility] DATE CREATED AUTHOR AUTHOR'S ORGANIZ ATION 06/19/2023 [facility] EPIC Source Comments (unrecognize d section and content) In the event this informatio n is protected by the Federal Confidentiality of Alcohol and Drug Abuse Patient Records regulations: The Federal rules restrict any use of the information to criminally investigate or prosecute any alcohol or drug abuse patient.[facility] the event this information is protected by the Federal Confidentiality of Alcohol and Drug Abuse Patient Records regulations: The Federal rules restrict any use of the information to criminally investigate or prosecute any alcohol or drug abuse patient.[facility] the event this information is protected by the Federal Confidentiality of Alcohol and Drug Abuse Patient Records regulations: The Federal rules restrict any use of the information to criminally investigate or prosecute any alcohol or drug abuse patient.[facility] the event this information is protected by the Federal Confidentiality of Alcohol and Drug Abuse Patient Records regulations: The Federal rules restrict any use of the information to criminally investigate or prosecute any alcohol or drug abuse patient.[facility] the event this information is protected by the Federal Confidentiality of Alcohol and Drug Abuse Patient Records regulations: The Federal rules restrict any use of the information to criminally investigate or prosecute any alcohol or drug abuse patient.[facility] the event this information is protected by the Federal Confidentiality of Alcohol and Drug Abuse Patient Records regulations: The Federal rules restrict any use of the information to criminally investigate or prosecute any alcohol or drug abuse patient.[facility] the event this information is protected by the Federal Confidentiality of Alcohol and Drug Abuse Patient Records regulations: The Federal rules restrict any use of the information to criminally investigate or prosecute any alcohol or drug abuse patient.[facility] the event this information is protected by the Federal Confidentiality of Alcohol and Drug Abuse Patient Records regulations: The Federal rules restrict any use of the information to criminally investigate or prosecute any alcohol or drug abuse patient.[facility] the event this information is protected by the Federal Confidentiality of Alcohol and Drug Abuse Patient Records regulations: The Federal rules restrict any use of the information to criminally investigate or prosecute any alcohol or drug abuse patient.[facility]In the event this information is protected by the Federal Confidentiality of Alcohol and Drug Abuse Patient Records regulations: The Federal rules restrict any use of the information to criminally investigate or prosecute any alcohol or drug abuse patient.[facility]In the event this information is protected by the Federal Confidentiality of Alcohol and Drug Abuse Patient Records regulations: The Federal rules restrict any use of the information to criminally investigate or prosecute any alcohol or drug abuse patient.[facility] the event this information is protected by the Federal Confidentiality of Alcohol and Drug Abuse Patient Records regulations: The Federal rules restrict any use of the information to criminally investigate or prosecute any alcohol or drug abuse patient.[facility] the event this information is protected by the Federal Confidentiality of Alcohol and Drug Abuse Patient Records regulations: The Federal rules restrict any use of the information to criminally investigate or prosecute any alcohol or drug abuse patient.[facility] the event this information is protected by the Federal Confidentiality of Alcohol and Drug Abuse Patient Records regulations: The Federal rules restrict any use of the information to criminally investigate or prosecute any alcohol or drug abuse patient.[facility] the event this information is protected by the Federal Confidentiality of Alcohol and Drug Abuse Patient Records regulations: The Federal rules restrict any use of the information to criminally investigate or prosecute any alcohol or drug abuse patient.[facility] the event this information is protected by the Federal Confidentiality of Alcohol and Drug Abuse Patient Records regulations: The Federal rules restrict any use of the information to criminally investigate or prosecute any alcohol or drug abuse patient.[facility] the event this information is protected by the Federal Confidentiality of Alcohol and Drug Abuse Patient Records regulations: The Federal rules restrict any use of the information to criminally investigate or prosecute any alcohol or drug abuse patient.[facility] the event this information is protected by the Federal Confidentiality of Alcohol and Drug Abuse Patient Records regulations: The Federal rules restrict any use of the information to criminally investigate or prosecute any alcohol or drug abuse patient.[facility] the event this information is protected by the Federal Confidentiality of Alcohol and Drug Abuse Patient Records regulations: The Federal rules restrict any use of the information to criminally investigate or prosecute any alcohol or drug abuse patient.[facility]In the event this information is protected by the Federal Confidentiality of Alcohol and Drug Abuse Patient Records regulations: The Federal rules restrict any use of the information to criminally investigate or prosecute any alcohol or drug abuse patient.[facility]In the event this information is protected by the Federal Confidentiality of Alcohol and Drug Abuse Patient Records regulations: The Federal rules restrict any use of the information to criminally investigate or prosecute any alcohol or drug abuse patient.[facility]In the event this information is protected by the Federal Confidentiality of Alcohol and Drug Abuse Patient Records regulations: The Federal rules restrict any use of the information to criminally investigate or prosecute any alcohol or drug abuse patient.[facility]In the event this information is protected by the Federal Confidentiality of Alcohol and Drug Abuse Patient Records regulations: The Federal rules restrict any use of the information to criminally investigate or prosecute any alcohol or drug abuse patient.[facility]In the event this information is protected by the Federal Confidentiality of Alcohol and Drug Abuse Patient Records regulations: The Federal rules restrict any use of the information to criminally investigate or prosecute any alcohol or drug abuse patient.[facility] the event this information is protected by the Federal Confidentiality of Alcohol and Drug Abuse Patient Records regulations: The Federal rules restrict any use of the information to criminally investigate or prosecute any alcohol or drug abuse patient.[facility]In the event this information is protected by the Federal Confidentiality of Alcohol and Drug Abuse Patient Records regulations: The Federal rules restrict any use of the information to criminally investigate or prosecute any alcohol or drug abuse patient.[facility] Reason for Visit (unrecogniz ed section [...] Care Teams (unrecognized sec tion and content) Stocking Inspector Relationship Specialty Start Date End Date Devon Moreira, DO [address] [place] [address] PCP - General 05/27/00 Stocking Inspector Relationship Specialty Start Date End Date Devon Moreira, DO [address] [facility] [place] [address] PCP - General 05/27/00 Stocking Inspector Relationship Specialty Start Date End Date Devon Moreira, DO [address] [facility] [place] [address] PCP - General 05/27/00 Stocking Inspector Relationship Specialty Start Date End Date Devon Moreira Raquel, DO [address] [facility] [place] [address] PCP - General 05/27/00 Stocking Inspector Relationship Specialty Start Date End Date Devon Moreira, DO [address] [place] [address] PCP - General 05/27/00 Stocking Inspector Relationship Specialty Start Date End Date Devon Moreira, DO [address] [place] [address] PCP - General 05/27/00 Stocking Inspector Relationship Specialty Start Date End Date Devon Moreira, DO [address] [place] [address] PCP - General 05/27/00 Stocking Inspector Relationship Specialty Start Date End Date Devon Moreira, DO [address] [place] [address] PCP - General 05/27/00 Stocking Inspector Relationship Specialty Start Date End Date Devon Moreira, DO [address] [place] [address] PCP - General 05/27/00 Stocking Inspector Relationship Specialty Start Date End Date Devon Moreira, DO [address] [place] [address] PCP - General 05/27/00 Stocking Inspector Relationship Specialty Start Date End Date Devon Moreira, DO [address] [place] [address] PCP - General 05/27/00 Stocking Inspector Relationship Specialty Start Date End Date Devon Moreira, DO [address] [place] [address] PCP - General 05/27/00 Stocking Inspector Relationship Specialty Start Date End Date Devon Moreira, DO [address] [place] [address] PCP - General 05/27/00 Stocking Inspector Relationship Specialty Start Date End Date Devon Moreira, DO [address] [facility] [address] PCP - General 05/27/00 Stocking Inspector Relationship Specialty Start Date End Date Devon Moreira, DO [address] [facility] [place] [address] PCP - General 05/27/00 Stocking Inspector Relationship Specialty Start Date End Date Devon Moreira, DO [address] [facility] [place] [address] PCP - General 05/27/00 Stocking Inspector Relationship Specialty Start Date End Date Devon Moreira, DO [address] [facility] [place] [address] PCP - General 05/27/00 Stocking Inspector Relationship Specialty Start Date End Date Devon Moreira, DO [address] [facility] [place] [address] PCP - General 05/27/00 Stocking Inspector Relationship Specialty Start Date End Date Devon Moreira, DO [address] [facility] [place] [address] PCP - General 05/27/00 Team Status: Active Member Role Status Dates Devon Moreira DO Primary Care Provider Active Team Status: Inactive Member Role Status Dates Devon Moreira DO Primary Care Provider Active Sadia Aguilar APRN Attending Provider Active Stocking Inspector Relationship Specialty Start Date End Date Devon Moreira, DO [address] [facility] [place] [address] PCP - General 05/27/00 Stocking Inspector Relationship Specialty Start Date End Date Devon Moreira, DO [address] [facility] [place] [address] PCP - General 05/27/00 Stocking Inspector Relationship Specialty Start Date End Date Ni Cabrera DO [address] [place] [address] PCP - ACO Reach 07/09/22 Devon Moreira MD [address] [facility] [place] [id number] PCP - General Internal Medicine 07/14/22 PRN Active and Recently Administ ered Medications (unrecognized section and content) Medication Order 01/10/2022 01/11/2022 01/12/2022 lidocaine (PF) 10 mg/mL (1 %) injection (XYLOCAINE) SUBCUTANEOUS, X (OR/PROCEDURE) PRN, Starting on 01/12/22 at 1032, Until Tu01/13/22 at 0303, Intraprocedure 1032 (Given - Provid er: Vani Hdz APRN.RANGE MECHANIC) Goals (unrecognized section and content) Goals [...] BE BASED ON THE PRIMARY CLINICAL RECORDS. [employer] provides no warranty or guarantee of the accuracy or completeness of information in this document.
[2023-08-06 07:35] LABS: Reticulocyte Pct Auto 1.61 % (0.60-3.10)
[2023-08-06 08:37] LABS: Percent Iron Saturation 7.8 %
[2023-08-06 11:21] LABS: Internal Control Within Normal Limits; Occult Blood Positive
== END 2023-08-06 01:14 | disposition home or self-care (01) ==
LOC: LAB 01:13
PROVIDERS: PCP Internal Medicine; Visit Provider Internal Medicine
DX: E44.0 Moderate protein-calorie malnutrition (principal); Z94.0 Kidney transplant status; E11.3553 Type 2 diabetes mellitus with stable proliferative diabetic retinopathy, bilateral
CPT/HCPCS: 36415; 82607; 82728; 83540; 83550; 85045; G0328

== ENCOUNTER 2023-08-11 01:19 | Outpatient (REF) | payer MEDICARE, OTHER, SELFPAY ==
--- OUTSIDE RECORDS SUMMARY | 2023-08-11 01:24 | XMS_ITS | CCD ---
Author Organization [facility] Inform ion Partnership [facility] Care Team Providers Care Hide Inspector And Sorter Name Role Phone PROVIDER, UNKNOWN Attending Unavailable [...] Unavailable LILLIE, DR OSORIO Primary Care Unavailable SAHLEY GARIBAY Consulting Unavailable BALL, DR OSORIO Primary [...] Unavailable BALL, DR SOORIO Primary Care Unavailable HOY ., DR CENTENO [...] Unavailable KRISHNA, DR CURRY Carmona Consulting Unavailable ASLHEY GARIBAY Procedure Practitioner Unava ilASHLEY Connelly Consulting [...] ZIEBER, DR CURRY Carmona Consulting Unavailable HIGHLANDER, ASHELY Cortes Attending Unavailable HIGHLANDER, ASHLEY Cortes Admitting Unavailable BALL, DR OSORIO Primary Care Unavailable HIGHLANDER, SAHLEY Cortes Consulting Unavailable MISC, DR RYDER Admitting [...] Primary Care Unavailable PetNi moreno DO Unavailable [phone] Devon Moreira MD Primary Care Provider CAITY IBRAHIM Attending Unavailable MILAGRO QUEEN Referring Unavailable SARTHAK PARNELL Attending Unavailable NI CABRERA Attending Unavailable DEVON MOREIRA Referring Unavailable NI CABRERA Attending Unavailable DEVON MOREIRA Referring Unavailable Allergies Allergy Classification Reported Allergen(s) Allergy Type Date of Onset Reaction(s) Facility (20 sources) Pyridostigmine; Translations: [PYRIDOSTIGMINE BROMIDE] Drug Allergy 2 GI Upset [facility] Work Phone: (1 source) Pyridostigmine Drug [...] Type 1 diabetes mellitus with nephropathy ([facility]) 3 units breakfast, 5 units lunch, 8 [...] by mouth daily with lunch. Magic [place] with lunch 7110 mL 0 12/11/2021 Active Comment on above: Take 237 mL by mouth daily with lunch. 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) use of insulin; Translations: [JAIL CURRENT USE OF INSULIN] Onset: 2 Episodic Other aftercare (5 sources) senior care (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 of anticoagulants; Translations: [DIGITAL CONTENT COORDINATOR CURRNT USE ANTICOAGULANTS] Onset: 3 Episodic [...] 07-30-2006 Episodic Other aftercare (2 sources) Other director long term care (current) drug therapy; Translations: [OTH JAIL CURRENT DRUG THERAPY] Onset: 02-05-2022 Episodic Other aftercare (4 sources) Encounter for orthopedic aftercare following surgical amputation; Translations: [ENC ORTHOPED AFTERCARE FLW SURG AMP] Onset: 02-05-2022 Episodic Other aftercare (4 sources) termite inspector (current) use of antibiotics; Translations: [DIGITAL CONTENT COORDINATOR CURRENT USE ANTIBIOTICS] Onset: 12-20-2021 Episodic Other aftercare (1 source) senior care (current) use of aspirin; Translations: [DIGITAL CONTENT COORDINATOR CURRENT USE OF ASPIRIN] Onset: 01-19-2022 Episodic [...] Range Facility Office Visiton 05-19-2023 Follow-up visit [id number] Alex Almonte 1945 M Date Provider Department Center 05/19/2023 CAITY PALACIOS CARD [facility] Family History Problem Relation Age of Onset Cancer Mother Aneurysm Father Cancer Father Parkinsonism Father Family Status - Relation Status Age at Mother Father Level of Service:28749 [place] OFFICE/OUTPATIENT ESTABLISHED LOW MDM 20 MIN Reason for Visit and Comments: Follow-up [527507] - 6 month follow up Normal [facility] HbA1c (Bld) [Mass fraction]o n 03-18-2023 Interpretation and review of laboratory results Normal [facility] POCT glycosylated hemoglobin (Hb A1C) docked deviceon 03-18-2023 HbA1c (Bld) [Mass fraction] 7.8 % [facility] Sonya 12-25-2022 CNPN Telephone (TXCTGL) ALEX ALMONTE ([id number]) 1945 M Date Time Provider Department 12/25/22 KIDNEY TXP COORDINATORS TXCTGL During your visit today, we recorded the following information about you: Duane Ryan 12/25/2022 10:41 AM Signed Labs 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 Administrative Gold Frame Assembler Allergies As of Date: 12/25/2022 Noted Allergy [...] by mouth daily with lunch. 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] 09/07/2003 PROPHYLACTIC IMMUNOTHERAPY [Z29.89] 07/30/2006 DIGITAL CONTENT COORDINATOR STEROIDS [XYG6297] 07/30/2006 VITAMIN D DEFICIENCY NOS [E55.9] 09/07/2008 MIXED HYPERLIPIDEMIA [E78.2] 09/07/2008 SUMMARY 01/04/2015 ILIANA (acute kidney injury) (HCC) [N17.9] 01/04/2015 Diabetes mellitus (HCC) [E11.9] 01/04/2015 Cellulitis [L03.90] 01/04/2015 Diarrhea [R19.7] 01/04/2015 VTE (venous thromboembolism) [I82.90] 09/24/2021 CAD (coronary artery disease) [I25.10] 2016 Paroxysmal atrial fibrillation (HCC) [I48.0] HTN (hypertension) [I10] SA node dysfunction ([facility]) [I49.5] Altered tissue perfusion [R09.89] 09/30/2021 PAD (peripheral artery disease) (HCC) [I73.9] 09/26/2021 Osteomyelitis (HCC) [M86.9] 11/29/2021 Class 1 obesity due to excess calories with ser*11/29/2021 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 Magic [place] with lunch aspirin, enteric coated (ASPIRIN, ENTERIC [...] in am? thanks! RF Pts RN at [facility] reports pts sister picks up Rx [...] Apply 0. (more content not included)... Normal [facility] Office Visiton 09-09-2022 Follow-up visit [id number] Alex Almonte Kate 1945 M Date Provider Department Center 09/09/2022 1596-SARTHAK PARNELL CARD [facility] Family History Problem Relation Age of Onset Cancer Mother Aneurysm Father Cancer Father Parkinsonism Father Family Status - Relation Status Age at Mother Father Level of Service:44646 [place] OFFICE/OUTPATIENT ESTABLISHED MOD MDM 30-39 MIN Normal [facility] Glucose Poct Glucometerson 0 07-20-2022 Commemt1 Glu2: Cleaned Meter Normal [facility] Comment on above: Result Comment: PERF ORMED BY: [facility] [address] [place] [address] PATHOLOGIST COMPUTER OPERATIONS SUPERVISOR JOSE F ELLIOTT M.D. Performed By: #### G MADY #### Point of Care testing , Glucose [Mass/Vol] 176 mg/dL Normal [facility] Comment on above: Result Comment: [facility] Glucose Reference Range is dependent on time and content of last meal. Glucose of more than 200 mg/dL in a nonstressed, ambulatory subject supports the diagnosis of Diabetes Mellitus. Performed By: #### G LULS #### Point of Care testing , FK506 (TACROLIMUS) WHOLE BLO ODon 07-12-2022 Tacrolimus (FK506), Blood 10.9 ng/mL Normal 2.0-20.0 [facility] Comment on above: Result Comment: Trou gh (immediately following transplant) 15.0 . Trough (steady state, 2 weeks or more after transplant): 3.0 - 8.0 . Performed by LC-MS/MS technology. Performed By: #### F K506T ####[facility] [address] [place], [place] [address]Dr. Farhat Leal CBC AUTO DIFFon 07-10-2022 BASO # 0.0 103/ul Normal 0.0-0.1 [facility] Comment on above: Performed By: #### C BC ####[facility] Mfxbvnok[address] [place], [place] [address]Dr. Farhat Leal Basophils/100 WBC (Bld) 0.5 % Normal 0.2-2.0 [facility] Comment on above: Performed By: #### C BC ####[facility] Yzolhfmrdx[address] [place], [place] [address]Dr. Farhat Leal EO # 0.3 103/ul Normal 0.0-0.7 [facility] Comment on above: Performed By: #### C BC ####[facility] Ef[address]xcwds[address] [place], [place] [address]Dr. Farhat Leal Eosinophils/100 WBC (Bld) 4.9 % Normal 0.9-7.0 [facility] Comment on above: Performed By: #### C BC ####[facility] Xwkhiw[address] [place], [place] [address]Dr. Farhat Leal Erythrocyte distribution width (RBC) [Ratio] 13.8 % Normal 11.0-15.0 [facility] Comment on above: Performed By: #### C BC ####[facility] [address] [place] [address]Dr. Farhat Leal Hematocrit (Bld) [Volume fraction] 36.6 % Critically low 42.0-54.0 [facility] Comment on above: Performed By: #### C BC ####[facility] [address] [place] [address]DrSkylar Leal Hemoglobin (Bld) [Mass/Vol] 12.2 g/dL Critically low 14.0-18.0 [facility] Comment on above: Performed By: #### C BC ####[facility] W[address]keuf[address]oi[address] [place], [place] [address]DrSkylar Leal IG # 0.01 10e3/ul Normal 0.00-0.03 [facility] Comment on above: Performed By: #### C BC ####[facility] Xrruojlywa[address] [place], [place] [address]Dr. Farhat Leal IG % 0.2 % Normal 0.0-0.5 [facility] Comment on above: Performed By: #### C BC ####[facility] Ucqresov[address] [place], [place] [address]DrSkylar Leal LYMPH # 2.2 103/ul Normal 1.2-3.8 [facility] Comment on above: Performed By: #### C BC ####[facility] Bneklidoum[address] [place], [place] [address]DrSkylar Leal Lymphocytes/100 WBC (Bld) 33.9 % Normal 20.5-60.0 [facility] Comment on above: Performed By: #### C BC ####[facility] Tasuognryh[address] [place], [place] [address]DrSkylar Leal MANUAL DIFF REQ NO Normal [facility] Comment on above: Performed By: #### C BC ####[facility] [address] [place] [address]DrSkylar Leal MCH (RBC) [Entitic mass] 31.0 pg Normal 25.9-34.0 [facility] Comment on above: Performed By: #### C BC ####[facility] [address] [place] [address]Dr. Farhat Leal MCHC (RBC) [Mass/Vol] 33.3 g/dL Normal 29.9-35.2 [facility] Comment on above: Performed By: #### C BC ####[facility] [address]ved[address] [place] [address]Dr. Farhat Leal MCV (RBC) [Entitic vol] 93.1 fL Normal 80.0-94.0 [facility] Comment on above: Performed By: #### C BC ####[facility] O[address]vvic[address] [place], [place] [address]DrSkylar Leal MONO # 0.7 103/ul Normal 0.3-0.8 [facility] Comment on above: Performed By: #### C BC ####[facility] Dpnxqdcolz[address] [place], [place] [address]Dr. Farhat Leal Monocytes/100 WBC (Bld) 10.8 % Normal 1.7-12.0 [facility] Comment on above: Performed By: #### C BC ####[facility] Fhbxlmjups[address] [place], [place] [address]Dr. Farhat Leal NEUT # 3.2 103/ul Normal 1.4-6.5 [facility] Comment on above: Performed By: #### C BC ####[facility] [address]gt[address]lowe[address] [place], [place] [address]Dr. Farhat Leal Neutrophils/100 WBC (Bld) 49.7 % Normal 43.0-75.0 [facility] Comment on above: Performed By: #### C BC ####[facility] Csczodyytt[address] [place], [place] [address]DrSkylar Leal Platelet mean volume (Bld) [Entitic vol] 10.9 fL Normal 9.5-13.5 [facility] Comment on above: Performed By: #### C BC ####[facility] Notamruyho[address] [place], [place] [address]Dr. Farhat Leal PLT 195 103/ul Normal 150-450 [facility] Comment on above: Performed By: #### C BC ####[facility] [address] [place] [address]Dr. Farhat Leal RBC 3.93 106/ul Critically low 4.70-6.10 [facility] Comment on above: Performed By: #### C BC ####[facility] [address]ed[address] [place] [address]Dr. Farhat Leal WBC 6.4 103/ul Normal 4.0-11.0 [facility] Comment on above: Performed By: #### C BC ####[facility] [address] [place] [address]Dr. Farhat Leal MAGNESIUMon 07-10-2022 Magnesium [Mass/Vol] 1.9 mg/dL Normal 1.8-2.4 [facility] Comment on above: Performed By: #### HENRI Winters ####[facility] [address] [place], [place] [address]Dr. Farhat Leal PHOSPHORUSon 07-10-2022 Phosphate [Mass/Vol] 4.7 mg/dL Normal 2.6-4.7 [facility] Comment on above: Performed By: #### HENRI Winters ####[facility] L[address]qnqueyc[address] [place], [place] [address]Dr. Farhat Leal PROF 14(COMP METB)on 023 Albumin [Mass/Vol] 2.7 g/dL Critically low 3.4-5.0 [facility] Comment on above: Performed By: #### C MP ####[facility] [address] [place] [address]Dr. Farhat Leal Albumin/Globulin [Mass ratio] 0.8 {ratio} Normal [facility] Comment on above: Performed By: #### C MP ####[facility] [address]hb[address] [place] [address]Dr. Farhat Leal ALP [Catalytic activity/Vol] 59 U/L Normal 46-116 [facility] Comment on above: Performed By: #### C MP ####[facility] Saidoxfwcb[address] [place] [address]Dr. Farhat Leal ALT [Catalytic activity/Vol] 16 U/L Normal 16-63 [facility] Comment on above: Performed By: #### C MP ####[facility] [address] [place] [address]Dr. Farhat Leal Anion gap [Moles/Vol] 12.3 mmol/L Normal [facility] Comment on above: Performed By: #### C MP ####[facility] Tusmlxpflc[address] [place], [place] [address]Dr. Farhat Leal AST [Catalytic activity/Vol] 17 U/L Normal 15-37 [facility] Comment on above: Performed By: #### C MP ####[facility] Fclkuxcukj[address] [place], [place] [address]Dr. Farhat Leal Bilirubin [Mass/Vol] 0.5 mg/dL Normal 0.2-1.0 [facility] Comment on above: Performed By: #### C MP ####[facility] [address]myfczeh[address] [place], [place] [address]Dr. Farhat Leal Calcium [Mass/Vol] 8.5 mg/dL Normal 8.5-10.1 [facility] Comment on above: Performed By: #### C MP ####[facility] Ycdwwrxrgk[address] [place], [place] [address]Dr. Farhat Leal Chloride [Moles/Vol] 104 mmol/L Normal 98-107 [facility] Comment on above: Performed By: #### C MP ####[facility] Czrdyxnlqq[address] [place], [place] [address]Dr. Farhat Leal CO2 [Moles/Vol] 27.6 mmol/L Normal 21.0-32.0 [facility] Comment on above: Performed By: #### C MP ####[facility] Rqulotxvrj[address] [place], [place] [address]Dr. Farhat Leal Creatinine [Mass/Vol] 1.79 mg/dL Critically high 0.70-1.30 [facility] Comment on above: Performed By: #### C MP ####[facility] [address] [place] [address]Dr. Farhat Leal EGFR-AF GERMAN 45 mL/min/1.73m2 Critically low >=60 [facility] Comment on above: Performed By: #### C MP ####[facility] [address] [place] [address]Dr. Farhat Leal EGFR-NON AF GERMAN 37 mL/min/1.73m2 Critically low >=60 [facility] Comment on above: Performed By: #### C MP ####[facility] [address] [place] [address]Dr. Farhat Leal Globulin (S) [Mass/Vol] 3.2 g/dL Normal [facility] Comment on above: Performed By: #### C MP ####[facility] E[address]zxngp[address] [place], [place] [address]Dr. Farhat Leal Glucose [Mass/Vol] 203 mg/dL Critically high 74-106 [facility] Comment on above: Performed By: #### C MP ####[facility] F[address]duohzibf[address] [place], [place] [address]Dr. Farhat Leal Potassium [Moles/Vol] 3.9 mmol/L Normal 3.5-5.1 [facility] Comment on above: Performed By: #### C MP ####[facility] Gr[address]vjiavlp[address] [place], [place] [address]Dr. Farhat Leal Protein [Mass/Vol] 5.9 g/dL Critically low 6.4-8.2 Th [facility] Comment on above: Performed By: #### C MP ####[facility] [address]cy[address] [place] [address]Dr. Farhat Leal Sodium [Moles/Vol] 140 mmol/L Normal 136-145 [facility] Comment on above: Performed By: #### C MP ####[facility] F[address]zuglvja[address] [place], [place] [address]Dr. Farhat Leal Urea nitrogen [Mass/Vol] 61.0 mg/dL Critically high 7.0-18.0 [facility] Comment on above: Performed By: #### C MP ####[facility] Y[address]mhjztw[address] [place], [place] [address]Dr. Farhat Leal Urea nitrogen/Creatinine [Mass ratio] 34.1 mg/mg Normal [facility] Comment on above: Performed By: #### C MP ####[facility] Szjqryjwdt[address] [place], [place] [address]DrSkylar Leal PROTIMEon 07-10-2022 INR Coag (PPP) [Relative time] 2.95 {INR} Normal [facility] Comment on above: Performed By: #### P T ####[facility] Ps[address]cd[address]xwd[address] [place], [place] [address]DrSkylar Leal INR GUIDELINES SEE BELOW Normal [facility] Comment on above: Result Comment: MALINA RED INR: 2.0 - 3.0 CONDITIONS NOT LISTED BELOW 2.5 - 3.5 FOR PROSTHETIC HEART VALVE REPLACEMENT 2.5 - 3.5 RECURRENT THROMBOSIS Performed By: #### P T ####[facility] Vafngzfoyy[address] [place], [place] [address]Dr. Farhat Leal PT Coag (PPP) [Time] 29.4 s Critically high 9.0-11.6 [facility] Comment on above: Performed By: #### P T ####[facility] [address]meh[address] [place], [place] [address]Dr. Farhat Leal FK506 (TACROLIMUS) WHOLE BLO ODon 07-07-2022 Tacrolimus (FK506), Blood 8.3 ng/mL Normal 2.0-20.0 [facility] Comment on above: Result Comment: Trou gh (immediately following transplant) 15.0 . Trough (steady state, 2 weeks or more after transplant): 3.0 - 8.0 . Performed by LC-MS/MS technology. Performed By: #### F K506T ####[facility] K[address]sm[address]zdn[address] [place], [place] [address]DrSkylar Leal CBC AUTO DIFFon 07-03-2022 BASO # 0.0 103/ul Normal 0.0-0.1 [facility] Comment on above: Performed By: #### C BC ####[facility] [address]vdxmz[address] [place], [place] [address]DrSkylar Leal Basophils/100 WBC (Bld) 0.6 % Normal 0.2-2.0 [facility] Comment on above: Performed By: #### C BC ####[facility] [address] [place] [address]DrSkylar Leal EO # 0.3 103/ul Normal 0.0-0.7 [facility] Comment on above: Performed By: #### C BC ####[facility] [address]ucgkaosd[address] [place], [place] [address]DrSkylar Leal Eosinophils/100 WBC (Bld) 4.1 % Normal 0.9-7.0 [facility] Comment on above: Performed By: #### C BC ####[facility] Xnllqnkbym[address] [place], [place] [address]Dr. Farhat Leal Erythrocyte distribution width (RBC) [Ratio] 14.0 % Normal 11.0-15.0 [facility] Comment on above: Performed By: #### C BC ####[facility] Syzgjppedw[address] [place], [place] [address]Dr. Farhat Leal Hematocrit (Bld) [Volume fraction] 35.9 % Critically low 42.0-54.0 [facility] Comment on above: Performed By: #### C BC ####[facility] Fneqkkgeqj[address] [place], [place] [address]Dr. Farhat Leal Hemoglobin (Bld) [Mass/Vol] 12.0 g/dL Critically low 14.0-18.0 [facility] Comment on above: Performed By: #### C BC ####[facility] [address]qx[address]vu[address] [place], [place] [address]DrSkylar Leal IG # 0.04 10e3/ul Critically high 0.00-0.03 [facility] Comment on above: Performed By: #### C BC ####[facility] [address]jalzwwv[address] [place], [place] [address]DrSkylar Leal IG % 0.6 % Critically high 0.0-0.5 The [facility] Comment on above: Performed By: #### C BC ####[facility] R[address]iffdrsap[address] [place], [place] [address]DrSkylar Leal LYMPH # 1.5 103/ul Normal 1.2-3.8 [facility] Comment on above: Performed By: #### C BC ####[facility] [address] [place] [address]DrSkylar Leal Lymphocytes/100 WBC (Bld) 21.5 % Normal 20.5-60.0 [facility] Comment on above: Performed By: #### C BC ####[facility] [address] [place] [address]DrSkylar Leal MANUAL DIFF REQ NO Normal [facility] Comment on above: Performed By: #### C BC ####[facility] [address]ivecnx[address] [place] [address]DrSkylar Leal MCH (RBC) [Entitic mass] 30.8 pg Normal 25.9-34.0 [facility] Comment on above: Performed By: #### C BC ####[facility] Z[address]uiixcdk[address] [place], [place] [address]DrSkylar Leal MCHC (RBC) [Mass/Vol] 33.4 g/dL Normal 29.9-35.2 [facility] Comment on above: Performed By: #### C BC ####[facility] [address]wjysg[address] [place], [place] [address]DrSkylar Leal MCV (RBC) [Entitic vol] 92.1 fL Normal 80.0-94.0 [facility] Comment on above: Performed By: #### C BC ####[facility] [address]boxrbeyq[address] [place], [place] [address]DrSkylar Leal MONO # 0.6 103/ul Normal 0.3-0.8 [facility] Comment on above: Performed By: #### C BC ####[facility] W[address]nzfqhja[address] [place], [place] [address]DrSkylar Leal Monocytes/100 WBC (Bld) 8.7 % Normal 1.7-12.0 [facility] Comment on above: Performed By: #### C BC ####[facility] [address] [place], [place] [address]DrSkylar Leal NEUT # 4.4 103/ul Normal 1.4-6.5 [facility] Comment on above: Performed By: #### C BC ####[facility] [address]ft[address] [place] [id number] Leal Neutrophils/100 WBC (Bld) 64.5 % Normal 43.0-75.0 [facility] Comment on above: Performed By: #### C BC ####[facility] [address] [place] [id number] Leal Platelet mean volume (Bld) [Entitic vol] 10.1 fL Normal 9.5-13.5 [facility] Comment on above: Performed By: #### C BC ####[facility] [address]wswpwk[address] [place], [place] [address]DrSkylar Leal PLT 177 103/ul Normal 150-450 [facility] Comment on above: Performed By: #### C BC ####[facility] [address]byvlpyvm[address] [place], [place] [address]DrSkylar Leal RBC 3.90 106/ul Critically low 4.70-6.10 [facility] Comment on above: Performed By: #### C BC ####[facility] [address]xwmzgflu[address] [place], [place] [address]DrSkylar Leal WBC 6.8 103/ul Normal 4.0-11.0 [facility] Comment on above: Performed By: #### C BC ####[facility] Dwgsaclvfa[address] [place], [place] [address]Dr. Farhat Leal PROF 14(COMP METB)on 023 Albumin [Mass/Vol] 2.8 g/dL Critically low 3.4-5.0 Th [facility] Comment on above: Performed By: #### C MP ####[facility] N[address]ot[address] [place], [place] [id number] Leal Albumin/Globulin [Mass ratio] 0.8 {ratio} Normal [facility] Comment on above: Performed By: #### C MP ####[facility] [address] [place], [place] [id number] Leal ALP [Catalytic activity/Vol] 68 U/L Normal 46-116 [facility] Comment on above: Performed By: #### C MP ####[facility] [address] [place] [address]Dr. Farhat Leal ALT [Catalytic activity/Vol] 20 U/L Normal 16-63 [facility] Comment on above: Performed By: #### C MP ####[facility] H[address]rqextn[address] [place], [place] [address]Dr. Farhat Leal Anion gap [Moles/Vol] 11.1 mmol/L Normal Th [facility] Comment on above: Performed By: #### C MP ####[facility] F[address]likjijy[address] [place], [place] [address]Dr. Farhat Leal AST [Catalytic activity/Vol] 22 U/L Normal 15-37 [facility] Comment on above: Performed By: #### C MP ####[facility] Hzxohzwygu[address] [place], [place] [address]Dr. Farhat Elvis Bilirubin [Mass/Vol] 0.4 mg/dL Normal 0.2-1.0 [facility] Comment on above: Performed By: #### C MP ####[facility] F[address]wkfznykv[address] [place], [place] [address]Dr. Farhat Elvis Calcium [Mass/Vol] 8.5 mg/dL Normal 8.5-10.1 [facility] Comment on above: Performed By: #### C MP ####[facility] [address]sivlkdzst[address] [place], [place] [address]Dr. Farhat Leal Chloride [Moles/Vol] 106 mmol/L Normal 98-107 [facility] Comment on above: Performed By: #### C MP ####[facility] [address]swbps[address] [address] [place], [place] [address]Dr. Farhat Leal CO2 [Moles/Vol] 29.1 mmol/L Normal 21.0-32.0 [facility] Comment on above: Performed By: #### C MP ####[facility] [address]pxsozwz[address] [place], [place] [id number]. Farhat Elvis Creatinine [Mass/Vol] 1.70 mg/dL Critically high 0.70-1.30 [facility] Comment on above: Performed By: #### C MP ####[facility] Jfslegkyvs4[address] [place] [address]Dr. Farhat Leal EGFR-AF GERMAN 48 mL/min/1.73m2 Critically low >=60 [facility] Comment on above: Performed By: #### C MP ####[facility] Geuntxbudk4274 [place] [address]Dr. Farhat Leal EGFR-NON AF GERMAN 39 mL/min/1.73m2 Critically low >=60 [facility] Comment on above: Performed By: #### C MP ####[facility] Fnhbbubbin[address] [place], [place] [address]Dr. Farhat Leal Globulin (S) [Mass/Vol] 3.6 g/dL Normal [facility] Comment on above: Performed By: #### C MP ####[facility] Mjrybcxmvo299[address] [place], [place] [address]Dr. Farhat Leal Glucose [Mass/Vol] 312 mg/dL Critically high 74-106 T [facility] Comment on above: Performed By: #### C MP ####[facility] Yqaxifnxcs9[address] [place], [place] [address]Dr. Farhat Leal Potassium [Moles/Vol] 4.2 mmol/L Normal 3.5-5.1 [facility] Comment on above: Performed By: #### C MP ####[facility] Vosxxppqtl76[address] [place], [place] [address]Dr. Farhat Leal Protein [Mass/Vol] 6.4 g/dL Normal 6.4-8.2 The [facility] Comment on above: Performed By: #### C MP ####[facility] Pmvgogaiey78[address] [place], [place] [address]Dr. Farhat Leal Sodium [Moles/Vol] 142 mmol/L Normal 136-145 [facility] Comment on above: Performed By: #### C MP ####[facility] Vprmwqbkkh260[address] [place], [place] [address]Dr. Farhat Leal Urea nitrogen [Mass/Vol] 49.0 mg/dL Critically high 7.0-18.0 [facility] Comment on above: Performed By: #### C MP ####[facility] Vznpqdoupd4622 [place] [address]DrSkylar Leal Urea nitrogen/Creatinine [Mass ratio] 28.8 mg/mg Normal [facility] Comment on above: Performed By: #### C MP ####[facility] Dpbczyhtge22[address] [place], [place] [address]DrSkylar Leal PROTIMEon 07-03-2022 INR Coag (PPP) [Relative time] 2.23 {INR} Normal [facility] Comment on above: Performed By: #### P T ####[facility] Rgyxbodukf[address] [place], [place] [address]DrSkylar Leal INR GUIDELINES SEE BELOW Normal [facility] Comment on above: Result Comment: MALINA RED INR: 2.0 - 3.0 CONDITIONS NOT LISTED BELOW 2.5 - 3.5 FOR PROSTHETIC HEART VALVE REPLACEMENT 2.5 - 3.5 RECURRENT THROMBOSIS Performed By: #### P T ####[facility] Nyvnwffirg6650[address] [place], [place] [address]Dr. Farhat Leal PT Coag (PPP) [Time] 22.6 s Critically high 9.0-11.6 [facility] Comment on above: Performed By: #### P T ####[facility] Uzomqixwrb0540[address] [place], [place] [address]Dr. Farhat Leal FK506 (TACROLIMUS) WHOLE BLO ODon 06-29-2022 Tacrolimus (FK506), Blood 12.2 ng/mL Normal 2.0-20.0 [facility] Comment on above: Result Comment: Trou gh (immediately following transplant) 15.0 . Trough (steady state, 2 weeks or more after transplant): 3.0 - 8.0 . Performed by LC-MS/MS technology. Performed By: #### F K506T ####[facility] Hwgqmpntft32[address] [place], [place] [address]DrSkylar Leal CBC AUTO DIFFon 06-26-2022 BASO # 0.0 103/ul Normal 0.0-0.1 [facility] Comment on above: Performed By: #### C BC ####[facility] Dgookgptcv6105 [place] [id number]. Farhat Leal Basophils/100 WBC (Bld) 0.5 % Normal 0.2-2.0 [facility] Comment on above: Performed By: #### C BC ####[facility] Fmfqfomywc89[address] [place], [place] [address]Dr. Farhat Leal EO # 0.3 103/ul Normal 0.0-0.7 [facility] Comment on above: Performed By: #### C BC ####[facility] Lxcqqylzcr475[address] [place], [place] [address]Dr. Farhat Leal Eosinophils/100 WBC (Bld) 4.3 % Normal 0.9-7.0 [facility] Comment on above: Performed By: #### C BC ####[facility] Vfuxfqjhlq689[address] [place], [place] [address]Dr. Farhat Leal Erythrocyte distribution width (RBC) [Ratio] 14.1 % Normal 11.0-15.0 [facility] Comment on above: Performed By: #### C BC ####[facility] Pzzlolqrbu87[address] [place], [place] [address]Dr. Farhat Leal Hematocrit (Bld) [Volume fraction] 35.4 % Critically low 42.0-54.0 [facility] Comment on above: Performed By: #### C BC ####[facility] Bshkjquqvn825[address] [place], [place] [address]Dr. Farhat Leal Hemoglobin (Bld) [Mass/Vol] 11.8 g/dL Critically low 14.0-18.0 [facility] Comment on above: Performed By: #### C BC ####[facility] Chqdeqiyjp64[address] [place], [place] [address]Dr. Farhat Leal IG # 0.02 10e3/ul Normal 0.00-0.03 [facility] Comment on above: Performed By: #### C BC ####[facility] Kjmtbyybmc274[address] [place], [place] [address]Dr. Farhat Leal IG % 0.3 % Normal 0.0-0.5 [facility] Comment on above: Performed By: #### C BC ####[facility] Syhntxpxoz4761 [place] [id number]. Farhat Leal LYMPH # 2.4 103/ul Normal 1.2-3.8 [facility] Comment on above: Performed By: #### C BC ####[facility] Spdysnsomy8429 [place] [id number]. Farhat Leal Lymphocytes/100 WBC (Bld) 40.4 % Normal 20.5-60.0 [facility] Comment on above: Performed By: #### C BC ####[facility] Saqtgeekvk7287 [place] [address]Dr. Farhat Leal MANUAL DIFF REQ NO Normal [facility] Comment on above: Performed By: #### C BC ####[facility] Scexlvtzlp8914 [place] [id number]. Farhat Leal MCH (RBC) [Entitic mass] 31.0 pg Normal 25.9-34.0 [facility] Comment on above: Performed By: #### C BC ####[facility] Zwvqernlzs3524 [place] [id number]. Farhat Leal MCHC (RBC) [Mass/Vol] 33.3 g/dL Normal 29.9-35.2 [facility] Comment on above: Performed By: #### C BC ####[facility] Orkzwifjco3993 [place] [id number]. Farhat Leal MCV (RBC) [Entitic vol] 92.9 fL Normal 80.0-94.0 [facility] Comment on above: Performed By: #### C BC ####[facility] Lwtrpkphzn1984 [place] [id number]. Farhat Leal MONO # 0.7 103/ul Normal 0.3-0.8 [facility] Comment on above: Performed By: #### C BC ####[facility] Blctpjkcds2610 [place] [id number]. Farhat Leal Monocytes/100 WBC (Bld) 11.1 % Normal 1.7-12.0 [facility] Comment on above: Performed By: #### C BC ####[facility] Papnabuahr2877 [place] [id number]. Farhat Leal NEUT # 2.6 103/ul Normal 1.4-6.5 [facility] Comment on above: Performed By: #### C BC ####[facility] Sacurzihhb4891 [place] [id number]. Farhat Leal Neutrophils/100 WBC (Bld) 43.4 % Normal 43.0-75.0 [facility] Comment on above: Performed By: #### C BC ####[facility] Qlvgkimshe1091 [place] [id number]. Farhat Leal Platelet mean volume (Bld) [Entitic vol] 10.4 fL Normal 9.5-13.5 [facility] Comment on above: Performed By: #### C BC ####[facility] Ebrkjdqbkk3030 [place] [id number]. Farhat Leal PLT 211 103/ul Normal 150-450 [facility] Comment on above: Performed By: #### C BC ####[facility] Shqfiulacl0844 [place] [id number]. Farhat Leal RBC 3.81 106/ul Critically low 4.70-6.10 [facility] Comment on above: Performed By: #### C BC ####[facility] Jcmrhkusut0951 [place] [id number]. Farhat Leal WBC 6.0 103/ul Normal 4.0-11.0 [facility] Comment on above: Performed By: #### C BC ####[facility] Rqdmpkvgvk2464 [place] [id number] Leal PROF 14(COMP METB)on 023 Albumin [Mass/Vol] 2.6 g/dL Critically low 3.4-5.0 Th [facility] Comment on above: Performed By: #### C MP ####[facility] Ccdeugqlxk6474 [place] [phone] Leal Albumin/Globulin [Mass ratio] 0.8 {ratio} Normal [facility] Comment on above: Performed By: #### C MP ####[facility] Hcvmniouka2104 [place] [address]Dr. Farhat Leal ALP [Catalytic activity/Vol] 64 U/L Normal 46-116 [facility] Comment on above: Performed By: #### C MP ####[facility] Ucwfqocmos9363 [place] [address]Dr. Farhat Elvis ALT [Catalytic activity/Vol] 18 U/L Normal 16-63 [facility] Comment on above: Performed By: #### C MP ####[facility] Gdunwlfkin[address] [place], [place] [address]Dr. Farhat Leal Anion gap [Moles/Vol] 10.2 mmol/L Normal Th [facility] Comment on above: Performed By: #### C MP ####[facility] Dzpgikthig88[address] [place], [place] [address]Dr. Farhat Elvis AST [Catalytic activity/Vol] 16 U/L Normal 15-37 [facility] Comment on above: Performed By: #### C MP ####[facility] Gidrnimeyc313[address] [place], [place] [address]Dr. Madelynlorri Elvis Bilirubin [Mass/Vol] 0.6 mg/dL Normal 0.2-1.0 [facility] Comment on above: Performed By: #### C MP ####[facility] Ezkptenvsu24[address] [place], [place] [address]Dr. Farhat Leal Calcium [Mass/Vol] 8.5 mg/dL Normal 8.5-10.1 [facility] Comment on above: Performed By: #### C MP ####[facility] Wgnflbqytp994[address] [place], [place] [address]Dr. Farhat Leal Chloride [Moles/Vol] 106 mmol/L Normal 98-107 [facility] Comment on above: Performed By: #### C MP ####[facility] Mzashmepuj2287 [place] [address]Dr. Farhat Leal CO2 [Moles/Vol] 29.8 mmol/L Normal 21.0-32.0 [facility] Comment on above: Performed By: #### C MP ####[facility] Wvvorqfplh2433 [place] [id number]. Farhat Leal Creatinine [Mass/Vol] 1.60 mg/dL Critically high 0.70-1.30 [facility] Comment on above: Performed By: #### C MP ####[facility] Ffnobxfoxd1799 [place] [phone]. Farhat Leal EGFR-AF GERMAN 51 mL/min/1.73m2 Critically low >=60 [facility] Comment on above: Performed By: #### C MP ####[facility] Gstcnhjskb2739 [place] [phone]. Farhat Elvis EGFR-NON AF GERMAN 42 mL/min/1.73m2 Critically low >=60 [facility] Comment on above: Performed By: #### C MP ####[facility] Bdvhocvtgi7038 [place] [phone]. Farhat Elvis Globulin (S) [Mass/Vol] 3.4 g/dL Normal [facility] Comment on above: Performed By: #### C MP ####[facility] Drkfejknid8179 [place] [phone]. Farhat Leal Glucose [Mass/Vol] 178 mg/dL Critically high 74-106 [facility] Comment on above: Performed By: #### C MP ####[facility] Hfoyznlatp3820 [place] [phone]. Farhat Elvis Potassium [Moles/Vol] 4.0 mmol/L Normal 3.5-5.1 [facility] Comment on above: Performed By: #### C MP ####[facility] Cjqwurneki9652 [place] [phone]. Farhat Leal Protein [Mass/Vol] 6.0 g/dL Critically low 6.4-8.2 Th [facility] Comment on above: Performed By: #### C MP ####[facility] Snyeghbmgo1660 [place] [phone]. Madelynlorri Leal Sodium [Moles/Vol] 142 mmol/L Normal 136-145 [facility] Comment on above: Performed By: #### C MP ####[facility] Vkxoqvqepc2625 [place] [address]Dr. Farhat Leal Urea nitrogen [Mass/Vol] 49.0 mg/dL Critically high 7.0-18.0 [facility] Comment on above: Performed By: #### C MP ####[facility] Nbrayeuoon4529 [place] [address]Dr. Farhat Leal Urea nitrogen/Creatinine [Mass ratio] 30.6 mg/mg Normal [facility] Comment on above: Performed By: #### C MP ####[facility] Mmapwuoctu055[address] [place], [place] [address]Dr. Farhat Leal PROTIMEon 06-26-2022 INR Coag (PPP) [Relative time] 1.77 {INR} Normal [facility] Comment on above: Performed By: #### P T ####[facility] Kevunanckm4068[address] [place], [place] [address]Dr. Farhat Leal INR GUIDELINES SEE BELOW Normal [facility] Comment on above: Result Comment: MALINA RED INR: 2.0 - 3.0 CONDITIONS NOT LISTED BELOW 2.5 - 3.5 FOR PROSTHETIC HEART VALVE REPLACEMENT 2.5 - 3.5 RECURRENT THROMBOSIS Performed By: #### P T ####[facility] Oxvrjgecwu999[address] [place], [place] [address]Dr. Farhat Leal PT Coag (PPP) [Time] 18.2 s Critically high 9.0-11.6 [facility] Comment on above: Performed By: #### P T ####[facility] Prtlrogrei2338[address] [place], [place] [address]Dr. Farhat Leal FK506 (TACROLIMUS) WHOLE BLO ODon 06-22-2022 Tacrolimus (FK506), Blood 24.5 ng/mL Invalid Interpretation Code 2.0-20.0 [facility] Comment on above: Result Comment: Trou gh (immediately following transplant) 15.0 . Trough (steady state, 2 weeks or more after transplant): 3.0 - 8.0 . Performed by LC-MS/MS technology.Patient drug level exceeds published reference range. Evaluateclinically for signs of potential toxicity. Performed By: #### F K506T ####[facility] Dsgoexqopc4246 [place] [id number]. Farhat Leal CBC AUTO DIFFon 06-19-2022 BASO # 0.1 103/ul Normal 0.0-0.1 [facility] Comment on above: Performed By: #### C BC ####[facility] Cwjrwaiync5702 [place] [address]Dr. Farhat Leal Basophils/100 WBC (Bld) 0.7 % Normal 0.2-2.0 [facility] Comment on above: Performed By: #### C BC ####[facility] Isdbjmwwnj8280[address] [place], [place] [address]Dr. Fahrat Leal EO # 0.4 103/ul Normal 0.0-0.7 [facility] Comment on above: Performed By: #### C BC ####[facility] Kkntqpnyhm577[address] [place], [place] [address]Dr. Madelynlorri Leal Eosinophils/100 WBC (Bld) 5.7 % Normal 0.9-7.0 [facility] Comment on above: Performed By: #### C BC ####[facility] Fcpkaovvxh9428[address] [place], [place] [address]Dr. Farhat Leal Erythrocyte distribution width (RBC) [Ratio] 14.5 % Normal 11.0-15.0 [facility] Comment on above: Performed By: #### C BC ####[facility] Tataxymhox4620[address] [place], [place] [address]Dr. Farhat Leal Hematocrit (Bld) [Volume fraction] 34.1 % Critically low 42.0-54.0 [facility] Comment on above: Performed By: #### C BC ####[facility] Ynluuiftnz890[address] [place], [place] [address]Dr. Farhat Leal Hemoglobin (Bld) [Mass/Vol] 11.3 g/dL Critically low 14.0-18.0 [facility] Comment on above: Performed By: #### C BC ####[facility] Kokuezlvho075[address] [place], [place] [address]Dr. Farhat Leal IG # 0.02 10e3/ul Normal 0.00-0.03 [facility] Comment on above: Performed By: #### C BC ####[facility] Sdtyyppprk2910 [place] [address]Dr. Farhat Leal IG % 0.3 % Normal 0.0-0.5 [facility] Comment on above: Performed By: #### C BC ####[facility] Cuacbqteoh1894 [place] [id number] Leal LYMPH # 3.1 103/ul Normal 1.2-3.8 [facility] Comment on above: Performed By: #### C BC ####[facility] Evtqqptmbo5825 [place] [address]Dr. Farhat Leal Lymphocytes/100 WBC (Bld) 40.6 % Normal 20.5-60.0 [facility] Comment on above: Performed By: #### C BC ####[facility] Ntywfvdqqh009[address] [place], [place] [address]DrSkylar Leal MANUAL DIFF REQ NO Normal [facility] Comment on above: Performed By: #### C BC ####[facility] Kpamaenhpf8201 [place] [phone]. Madelynlorri Leal MCH (RBC) [Entitic mass] 30.6 pg Normal 25.9-34.0 [facility] Comment on above: Performed By: #### C BC ####[facility] Rmjeaedtzx[address] [place], [place] [address]Dr. Farhat Leal MCHC (RBC) [Mass/Vol] 33.1 g/dL Normal 29.9-35.2 [facility] Comment on above: Performed By: #### C BC ####[facility] Ahkmevrxto[address] [place], [place] [address]DrSkylar Leal MCV (RBC) [Entitic vol] 92.4 fL Normal 80.0-94.0 [facility] Comment on above: Performed By: #### C BC ####[facility] Mwuoyrxmhg7167 [place] [id number] Leal MONO # 0.8 103/ul Normal 0.3-0.8 [facility] Comment on above: Performed By: #### C BC ####[facility] Uilzuukjey9043 [place] [phone]. Farhat Leal Monocytes/100 WBC (Bld) 10.6 % Normal 1.7-12.0 [facility] Comment on above: Performed By: #### C BC ####[facility] Bewmsabiqw2127 [place] [id number]. Farhat Leal NEUT # 3.2 103/ul Normal 1.4-6.5 [facility] Comment on above: Performed By: #### C BC ####[facility] Bxyjkzbllf3534 [place] [phone]. Farhat Leal Neutrophils/100 WBC (Bld) 42.1 % Critically low 43.0-75.0 [facility] Comment on above: Performed By: #### C BC ####[facility] Cxrtpwirhm2331 [place] [address]Dr. Farhat Leal Platelet mean volume (Bld) [Entitic vol] 10.6 fL Normal 9.5-13.5 [facility] Comment on above: Performed By: #### C BC ####[facility] Inmhzrxkja9140 [place] [address]Dr. Farhat Leal PLT 187 103/ul Normal 150-450 [facility] Comment on above: Performed By: #### C BC ####[facility] Vhmxyervuz7279 [place] [phone]. Farhat Leal RBC 3.69 106/ul Critically low 4.70-6.10 The [facility] Comment on above: Performed By: #### C BC ####[facility] Blsogwevba5223 [place] [id number]. Farhat Leal WBC 7.7 103/ul Normal 4.0-11.0 [facility] Comment on above: Performed By: #### C BC ####[facility] Byikcnsjnb6691 [place] [id number] Leal PROF 14(COMP METB)on 023 Albumin [Mass/Vol] 2.5 g/dL Critically low 3.4-5.0 Th [facility] Comment on above: Performed By: #### C MP ####[facility] Fadjxfbrhc9208 [place] [address]Dr. Farhat Leal Albumin/Globulin [Mass ratio] 0.8 {ratio} Normal [facility] Comment on above: Performed By: #### C MP ####[facility] Hgmkrazpbx1856 [place] [address]Dr. Farhat Leal ALP [Catalytic activity/Vol] 60 U/L Normal 46-116 [facility] Comment on above: Performed By: #### C MP ####[facility] Hrrqrglijy[address] [place], [place] [address]Dr. Farhat Leal ALT [Catalytic activity/Vol] 16 U/L Normal 16-63 [facility] Comment on above: Performed By: #### C MP ####[facility] Myxyyokrnc297[address] [place], [place] [address]Dr. Farhat Leal Anion gap [Moles/Vol] 9.1 mmol/L Normal [facility] Comment on above: Performed By: #### C MP ####[facility] Epxbwxqxhx9075[address] [place], [place] [address]Dr. Farhat Leal AST [Catalytic activity/Vol] 31 U/L Normal 15-37 [facility] Comment on above: Performed By: #### C MP ####[facility] Lpfgplghca087[address] [place], [place] [address]Dr. Farhat Leal Bilirubin [Mass/Vol] 0.3 mg/dL Normal 0.2-1.0 [facility] Comment on above: Performed By: #### C MP ####[facility] Ysulrmxiua758[address] [place], [place] [address]Dr. Farhat Leal Calcium [Mass/Vol] 8.2 mg/dL Critically low 8.5-10.1 Th [facility] Comment on above: Performed By: #### C MP ####[facility] Rcdimbskme02[address] [place], [place] [address]Dr. Farhat Leal Chloride [Moles/Vol] 106 mmol/L Normal 98-107 [facility] Comment on above: Performed By: #### C MP ####[facility] Appnfniosv9244 [place] [phone]. Farhat Leal CO2 [Moles/Vol] 27.0 mmol/L Normal 21.0-32.0 [facility] Comment on above: Performed By: #### C MP ####[facility] Pzupqhetik8383 [place] [phone]. Farhat Leal Creatinine [Mass/Vol] 1.51 mg/dL Critically high 0.70-1.30 [facility] Comment on above: Performed By: #### C MP ####[facility] Mdpkphfqcp2072 [place] [id number]. Farhat Leal EGFR-AF GERMAN 55 mL/min/1.73m2 Critically low >=60 [facility] Comment on above: Performed By: #### C MP ####[facility] Xdcqvvyyya4203 [place] [id number]. Farhat Elvis EGFR-NON AF GERMAN 45 mL/min/1.73m2 Critically low >=60 [facility] Comment on above: Performed By: #### C MP ####[facility] Gcumzldfbz4469 [place] [phone]. Farhat Leal Globulin (S) [Mass/Vol] 3.2 g/dL Normal [facility] Comment on above: Performed By: #### C MP ####[facility] Xhonxzeyqm9033 [place] [phone]. Farhat Leal Glucose [Mass/Vol] 165 mg/dL Critically high 74-106 [facility] Comment on above: Performed By: #### C MP ####[facility] Adjpwxdmje7349 [place] [phone]. Farhat Leal Potassium [Moles/Vol] 4.1 mmol/L Normal 3.5-5.1 [facility] Comment on above: Performed By: #### C MP ####[facility] Yjwrpphcgn7992 [place] [phone]. Farhat Leal Protein [Mass/Vol] 5.7 g/dL Critically low 6.4-8.2 Th [facility] Comment on above: Performed By: #### C MP ####[facility] Fwkepmxawh1261 [place] [phone]. Farhat Leal Sodium [Moles/Vol] 138 mmol/L Normal 136-145 [facility] Comment on above: Performed By: #### C MP ####[facility] Ogarehrrrh5748 [place] [phone]. Farhat Leal Urea nitrogen [Mass/Vol] 51.0 mg/dL Critically high 7.0-18.0 [facility] Comment on above: Performed By: #### C MP ####[facility] Xalwizzalc3663 [place] [address]Dr. Farhat Leal Urea nitrogen/Creatinine [Mass ratio] 33.8 mg/mg Normal [facility] Comment on above: Performed By: #### C MP ####[facility] Vnuofrnmnp39[address] [place], [place] [address]Dr. Farhat Leal FK506 (TACROLIMUS) WHOLE BLO ODon 06-15-2022 Tacrolimus (FK506), Blood 16.4 ng/mL Normal 2.0-20.0 [facility] Comment on above: Result Comment: Trou gh (immediately following transplant) 15.0 . Trough (steady state, 2 weeks or more after transplant): 3.0 - 8.0 . Performed by LC-MS/MS technology. Performed By: #### F K506T ####[facility] Tpjggfkubc45[address] [place], [place] [address]Dr. Farhat Leal PROTIMEon 06-15-2022 INR Coag (PPP) [Relative time] 1.64 {INR} Normal [facility] Comment on above: Performed By: #### P T ####[facility] Sbdbgtigrq355[address] [place], [place] [address]Dr. Farhat Leal INR GUIDELINES SEE BELOW Normal [facility] Comment on above: Result Comment: MALINA RED INR: 2.0 - 3.0 CONDITIONS NOT LISTED BELOW 2.5 - 3.5 FOR PROSTHETIC HEART VALVE REPLACEMENT 2.5 - 3.5 RECURRENT THROMBOSIS Performed By: #### P T ####[facility] Cfoorvzgtz7853 [place] [address]Dr. Farhat Leal PT Coag (PPP) [Time] 16.9 s Critically high 9.0-11.6 [facility] Comment on above: Performed By: #### P T ####[facility] Jvpxdrhglu410[address] [place], [place] [address]Dr. Madelynlorri Leal CBC AUTO DIFFon 06-12-2022 BASO # 0.0 103/ul Normal 0.0-0.1 [facility] Comment on above: Performed By: #### C BC ####[facility] Finhegvlsf69[address] [place], [place] [address]Dr. Farhat Leal Basophils/100 WBC (Bld) 0.4 % Normal 0.2-2.0 [facility] Comment on above: Performed By: #### C BC ####[facility] Jpcnxbswld8[address] [place], [place] [address]Dr. Farhat Leal EO # 0.4 103/ul Normal 0.0-0.7 [facility] Comment on above: Performed By: #### C BC ####[facility] Zflcsbfpcj427[address] [place], [place] [address]Dr. Farhat Leal Eosinophils/100 WBC (Bld) 5.4 % Normal 0.9-7.0 [facility] Comment on above: Performed By: #### C BC ####[facility] Tbuzpvqnvp918[address] [place], [place] [address]Dr. Farhat Leal Erythrocyte distribution width (RBC) [Ratio] 14.7 % Normal 11.0-15.0 [facility] Comment on above: Performed By: #### C BC ####[facility] Bhbivddrfn[address] [place], [place] [address]Dr. Farhat Leal Hematocrit (Bld) [Volume fraction] 34.8 % Critically low 42.0-54.0 [facility] Comment on above: Performed By: #### C BC ####[facility] Bgsktjdrrh[address] [place], [place] [address]Dr. Farhat Leal Hemoglobin (Bld) [Mass/Vol] 11.7 g/dL Critically low 14.0-18.0 [facility] Comment on above: Performed By: #### C BC ####[facility] Qpcgnkptzi7271 [place] [id number]. Farhat Leal IG # 0.02 10e3/ul Normal 0.00-0.03 [facility] Comment on above: Performed By: #### C BC ####[facility] Ccxyaaagmn6584 [place] [id number]. Farhat Leal IG % 0.3 % Normal 0.0-0.5 [facility] Comment on above: Performed By: #### C BC ####[facility] [address]ovcqot[address] [place] [address]Dr. Farhat Leal LYMPH # 2.5 103/ul Normal 1.2-3.8 [facility] Comment on above: Performed By: #### C BC ####[facility] Jotnxpmcvy6[address] [place] [address]Dr. Madelynlorri Leal Lymphocytes/100 WBC (Bld) 36.8 % Normal 20.5-60.0 [facility] Comment on above: Performed By: #### C BC ####[facility] Bweeotoorn[address] [place] [address]Dr. Farhat Leal MANUAL DIFF REQ NO Normal [facility] Comment on above: Performed By: #### C BC ####[facility] Bbmghovvlv98[address] [place] [id number]. Farhat Leal MCH (RBC) [Entitic mass] 30.9 pg Normal 25.9-34.0 [facility] Comment on above: Performed By: #### C BC ####[facility] Yrfagbdjpk[address] [place], [place] [id number]. Farhat Leal MCHC (RBC) [Mass/Vol] 33.6 g/dL Normal 29.9-35.2 [facility] Comment on above: Performed By: #### C BC ####[facility] Dmzvucgybc6187 [place] [id number]. Farhat Leal MCV (RBC) [Entitic vol] 91.8 fL Normal 80.0-94.0 [facility] Comment on above: Performed By: #### C BC ####[facility] Uidmwogqtw8982 [place] [id number]. Farhat Leal MONO # 0.8 103/ul Normal 0.3-0.8 [facility] Comment on above: Performed By: #### C BC ####[facility] Iwdikqjzwa9250 [place] [id number]. Farhat Leal Monocytes/100 WBC (Bld) 11.9 % Normal 1.7-12.0 [facility] Comment on above: Performed By: #### C BC ####[facility] Pfhrzestfs5480 [place] [id number]. Farhat Leal NEUT # 3.1 103/ul Normal 1.4-6.5 [facility] Comment on above: Performed By: #### C BC ####[facility] Irsmnmfdnr[address] [place], [place] [address]Dr. Farhat Leal Neutrophils/100 WBC (Bld) 45.2 % Normal 43.0-75.0 [facility] Comment on above: Performed By: #### C BC ####[facility] Pxwjnmelyi6308 [place] [id number]. Farhat Leal Platelet mean volume (Bld) [Entitic vol] 10.5 fL Normal 9.5-13.5 [facility] Comment on above: Performed By: #### C BC ####[facility] Yiqtsvqlzd8331 [place] [id number]. Farhat Leal PLT 175 103/ul Normal 150-450 [facility] Comment on above: Performed By: #### C BC ####[facility] Ujbacxeoao[address] [place], [place] [address]Dr. Farhat Leal RBC 3.79 106/ul Critically low 4.70-6.10 [facility] Comment on above: Performed By: #### C BC ####[facility] Nipdbccnko4[address] [place] [id number]. Farhat Leal WBC 6.8 103/ul Normal 4.0-11.0 [facility] Comment on above: Performed By: #### C BC ####[facility] Dlonxkjbjq6968 [place] [address]Dr. Farhat Leal MAGNESIUMon 06-12-2022 Magnesium [Mass/Vol] 1.6 mg/dL Critically low 1.8-2.4 [facility] Comment on above: Performed By: #### C MP, MG, PHOS ####[facility] Bpmnoeteng99[address] [place] [address]Dr. Farhat Leal PHOSPHORUSon 06-12-2022 Phosphate [Mass/Vol] 3.8 mg/dL Normal 2.6-4.7 [facility] Comment on above: Performed By: #### C MP, MG, PHOS ####[facility] Ygqvfhtoqs6084 [place] [address]Dr. Farhat Leal PROF 14(COMP METB)on 023 Albumin [Mass/Vol] 2.6 g/dL Critically low 3.4-5.0 [facility] Comment on above: Performed By: #### C MP, MG, PHOS ####[facility] Z[address]jzehjub[address] [place], [place] [address]Dr. Farhat Leal Albumin/Globulin [Mass ratio] 0.8 {ratio} Normal [facility] Comment on above: Performed By: #### C MP, MG, PHOS ####[facility] Xlvyyovdul80[address] [place] [address]Dr. Farhat Leal ALP [Catalytic activity/Vol] 64 U/L Normal 46-116 [facility] Comment on above: Performed By: #### C MP, MG, PHOS ####[facility] Uslpeumokx2424 [place] [address]Dr. Farhat Leal ALT [Catalytic activity/Vol] 18 U/L Normal 16-63 [facility] Comment on above: Performed By: #### C MP, MG, PHOS ####[facility] Icsckemcaz4729 [place] [address]Dr. Farhat Leal Anion gap [Moles/Vol] 12.9 mmol/L Normal [facility] Comment on above: Performed By: #### C MP, MG, PHOS ####[facility] Xhcjuuaawx1928 [place] [address]Dr. Farhat Leal AST [Catalytic activity/Vol] 18 U/L Normal 15-37 [facility] Comment on above: Performed By: #### C MP, MG, PHOS ####[facility] Vbcmkcplgx4643 [place] [address]Dr. Farhat Leal Bilirubin [Mass/Vol] 0.4 mg/dL Normal 0.2-1.0 [facility] Comment on above: Performed By: #### C MP, MG, PHOS ####[facility] Hrquadrwft[address] [place], [place] [address]Dr. Farhat Leal Calcium [Mass/Vol] 8.7 mg/dL Normal 8.5-10.1 [facility] Comment on above: Performed By: #### C MP, MG, PHOS ####[facility] Uugrsbaqap[address] [place], [place] [address]Dr. Farhat Leal Chloride [Moles/Vol] 105 mmol/L Normal 98-107 [facility] Comment on above: Performed By: #### C MP, MG, PHOS ####[facility] Gtesxyspmv9745 [place] [address]Dr. Farhat Leal CO2 [Moles/Vol] 27.9 mmol/L Normal 21.0-32.0 [facility] Comment on above: Performed By: #### C MP, MG, PHOS ####[facility] Cexykfvnry67[address] [place], [place] [address]Dr. Farhat Leal Creatinine [Mass/Vol] 1.53 mg/dL Critically high 0.70-1.30 [facility] Comment on above: Performed By: #### C MP, MG, PHOS ####[facility] Syztnzujdv[address] [place], [place] [address]Dr. Farhat Leal EGFR-AF GERMAN 54 mL/min/1.73m2 Critically low >=60 [facility] Comment on above: Performed By: #### C MP, MG, PHOS ####[facility] Soxyjorskv7201 [place] [address]Dr. Farhat Leal EGFR-NON AF GERMAN 44 mL/min/1.73m2 Critically low >=60 [facility] Comment on above: Performed By: #### C MP, MG, PHOS ####[facility] Sfcheuhrza0155 [place] [address]Dr. Farhat Leal Globulin (S) [Mass/Vol] 3.4 g/dL Normal [facility] Comment on above: Performed By: #### C MP, MG, PHOS ####[facility] Sbaokhdppo5922 [place] [address]Dr. Farhat Leal Glucose [Mass/Vol] 179 mg/dL Critically high 74-106 [facility] Comment on above: Performed By: #### C MP, MG, PHOS ####[facility] Ghxalgnagc190[address] [place], [place] [address]Dr. Farhat Leal Potassium [Moles/Vol] 3.8 mmol/L Normal 3.5-5.1 [facility] Comment on above: Performed By: #### C MP, MG, PHOS ####[facility] Cqdjyyrvjd98[address] [place], [place] [address]Dr. Farhat Leal Protein [Mass/Vol] 6.0 g/dL Critically low 6.4-8.2 [facility] Comment on above: Performed By: #### C MP, MG, PHOS ####[facility] Ljtgvzhgvm[address] [place], [place] [address]Dr. Farhat Leal Sodium [Moles/Vol] 142 mmol/L Normal 136-145 [facility] Comment on above: Performed By: #### C MP, MG, PHOS ####[facility] Hjjqhtbaxg06[address] [place], [place] [address]Dr. Farhat Leal Urea nitrogen [Mass/Vol] 56.0 mg/dL Critically high 7.0-18.0 [facility] Comment on above: Performed By: #### C MP, MG, PHOS ####[facility] Lugrrzgngq3897 [place] [address]Dr. Farhat Leal Urea nitrogen/Creatinine [Mass ratio] 36.6 mg/mg Normal [facility] Comment on above: Performed By: #### C MP, MG, PHOS ####[facility] Pltfeunmut7708 [place] [address]Dr. Farhat Leal FK506 (TACROLIMUS) WHOLE BLO ODon 06-08-2022 Tacrolimus (FK506), Blood 13.2 ng/mL Normal 2.0-20.0 [facility] Comment on above: Result Comment: Trou gh (immediately following transplant) 15.0 . Trough (steady state, 2 weeks or more after transplant): 3.0 - 8.0 . Performed by LC-MS/MS technology. Performed By: #### F K506T ####[facility] Zowfbfkeca[address] [place], [place] [address]Dr. Farhat Leal CBC AUTO DIFFon 06-05-2022 BASO # 0.1 103/ul Normal 0.0-0.1 [facility] Comment on above: Performed By: #### C BC ####[facility] Iomfrxdwjj43[address] [place], [place] [address]Dr. Farhat Leal Basophils/100 WBC (Bld) 0.8 % Normal 0.2-2.0 [facility] Comment on above: Performed By: #### C BC ####[facility] [address]wodpfacnb[address] [place], [place] [address]Dr. Farhat Leal EO # 0.3 103/ul Normal 0.0-0.7 [facility] Comment on above: Performed By: #### C BC ####[facility] Sjagzsjfjt[address] [place], [place] [address]Dr. Farhat Leal Eosinophils/100 WBC (Bld) 4.7 % Normal 0.9-7.0 [facility] Comment on above: Performed By: #### C BC ####[facility] Mmezwtskoj45[address] [place], [place] [address]Dr. Farhat Leal Erythrocyte distribution width (RBC) [Ratio] 15.1 % Critically high 11.0-15.0 [facility] Comment on above: Performed By: #### C BC ####[facility] Adnkebqkre209[address] [place], [place] [address]Dr. Farhat Leal Hematocrit (Bld) [Volume fraction] 35.5 % Critically low 42.0-54.0 [facility] Comment on above: Performed By: #### C BC ####[facility] Nyddvopyoq8190 [place] [address]Dr. Farhat Leal Hemoglobin (Bld) [Mass/Vol] 11.7 g/dL Critically low 14.0-18.0 [facility] Comment on above: Performed By: #### C BC ####[facility] Wffwelvsxr2642 [place] [address]Dr. Farhat Leal IG # 0.01 10e3/ul Normal 0.00-0.03 [facility] Comment on above: Performed By: #### C BC ####[facility] Zlwupwgkoc7536 [place] [address]Dr. Farhat Leal IG % 0.2 % Normal 0.0-0.5 [facility] Comment on above: Performed By: #### C BC ####[facility] Rgelehwiwr234[address] [place], [place] [address]Dr. Farhat Leal LYMPH # 2.1 103/ul Normal 1.2-3.8 [facility] Comment on above: Performed By: #### C BC ####[facility] Fldymmjgjt19[address] [place], [place] [address]Dr. Farhat Leal Lymphocytes/100 WBC (Bld) 34.5 % Normal 20.5-60.0 [facility] Comment on above: Performed By: #### C BC ####[facility] Ghtbzqeidz24[address] [place] [address]Dr. Farhat Leal MANUAL DIFF REQ NO Normal [facility] Comment on above: Performed By: #### C BC ####[facility] Hsojnjwmmi3299 [place] [address]Dr. Farhat Leal MCH (RBC) [Entitic mass] 30.6 pg Normal 25.9-34.0 [facility] Comment on above: Performed By: #### C BC ####[facility] Sduqgyedpw[address] [place], [place] [address]Dr. Farhat Leal MCHC (RBC) [Mass/Vol] 33.0 g/dL Normal 29.9-35.2 [facility] Comment on above: Performed By: #### C BC ####[facility] Ktvxkqvagu0343 [place] [id number]. Farhat Leal MCV (RBC) [Entitic vol] 92.9 fL Normal 80.0-94.0 [facility] Comment on above: Performed By: #### C BC ####[facility] Aqrkzjdxis7729 [place] [id number]. Farhat Leal MONO # 0.7 103/ul Normal 0.3-0.8 [facility] Comment on above: Performed By: #### C BC ####[facility] Ysuvgqaqyg5724 [place] [id number]. Farhat Elvis Monocytes/100 WBC (Bld) 11.4 % Normal 1.7-12.0 [facility] Comment on above: Performed By: #### C BC ####[facility] Skggfekekw66[address] [place], [place] [address]Dr. Farhat Leal NEUT # 2.9 103/ul Normal 1.4-6.5 [facility] Comment on above: Performed By: #### C BC ####[facility] Dvhabkqtvr89[address] [place], [place] [address]Dr. Farhat Elvis Neutrophils/100 WBC (Bld) 48.4 % Normal 43.0-75.0 [facility] Comment on above: Performed By: #### C BC ####[facility] Rhnuvigpyd40[address] [place], [place] [address]Dr. Farhat Elvis Platelet mean volume (Bld) [Entitic vol] 10.7 fL Normal 9.5-13.5 [facility] Comment on above: Performed By: #### C BC ####[facility] Uzygcbrlds8158 [place] [id number]. Farhat Elvis PLT 185 103/ul Normal 150-450 [facility] Comment on above: Performed By: #### C BC ####[facility] Pirlxdkfgk3237 [place] [id number]. Farhat Leal RBC 3.82 106/ul Critically low 4.70-6.10 [facility] Comment on above: Performed By: #### C BC ####[facility] Zlqpfetart1813 [place] [id number]. Farhat Leal WBC 6.0 103/ul Normal 4.0-11.0 [facility] Comment on above: Performed By: #### C BC ####[facility] Rxafsetldj3130 [place] [id number]. Farhat Leal MAGNESIUMon 06-05-2022 Magnesium [Mass/Vol] 1.9 mg/dL Normal 1.8-2.4 [facility] Comment on above: Performed By: #### P HOS, MG ####[facility] Nfjgrjdcue1713 [place] [address]Dr. Farhat Leal PHOSPHORUSon 06-05-2022 Phosphate [Mass/Vol] 4.4 mg/dL Normal 2.6-4.7 [facility] Comment on above: Performed By: #### P HOS, MG ####[facility] Swyexswfev6428 [place] [address]Dr. Farhat Elvis PROTIMEon 06-05-2022 INR Coag (PPP) [Relative time] 2.16 {INR} Normal [facility] Comment on above: Performed By: #### P T ####[facility] Fgmmwdpxve149[address] [place], [place] [address]Dr. Farhat Leal INR GUIDELINES SEE BELOW Normal [facility] Comment on above: Result Comment: MALINA RED INR: 2.0 - 3.0 CONDITIONS NOT LISTED BELOW 2.5 - 3.5 FOR PROSTHETIC HEART VALVE REPLACEMENT 2.5 - 3.5 RECURRENT THROMBOSIS Performed By: #### P T ####[facility] Abtugthjgc1438 [place] [address]Dr. Farhat Leal PT Coag (PPP) [Time] 21.9 s Critically high 9.0-11.6 [facility] Comment on above: Performed By: #### P T ####[facility] Ljlcweujhp5391 [place] [address]Dr. Farhat Elvis FK506 (TACROLIMUS) WHOLE BLO ODon 06-01-2022 Tacrolimus (FK506), Blood 26.4 ng/mL Invalid Interpretation Code 2.0-20.0 [facility] Comment on above: Result Comment: Trou gh (immediately following transplant) 15.0 . Trough (steady state, 2 weeks or more after transplant): 3.0 - 8.0 . Performed by LC-MS/MS technology.Patient drug level exceeds published reference range. Evaluateclinically for signs of potential toxicity. Performed By: #### F K506T ####[facility] Dplucedndi347[address] [place], [place] [address]DrSkylar Leal CBC AUTO DIFFon 05-29-2022 BASO # 0.0 103/ul Normal 0.0-0.1 [facility] Comment on above: Performed By: #### C BC ####[facility] Skkrdkcygw107[address] [place], [place] [address]DrSkylar Leal Basophils/100 WBC (Bld) 0.6 % Normal 0.2-2.0 [facility] Comment on above: Performed By: #### C BC ####[facility] Qsyegqctfe89[address] [place], [place] [address]DrSkylar Leal EO # 0.3 103/ul Normal 0.0-0.7 [facility] Comment on above: Performed By: #### C BC ####[facility] Nicexbvnsb014[address] [place], [place] [address]DrSkylar Leal Eosinophils/100 WBC (Bld) 4.7 % Normal 0.9-7.0 [facility] Comment on above: Performed By: #### C BC ####[facility] Stuwlglkpd53[address] [place], [place] [address]DrSkylar Leal Erythrocyte distribution width (RBC) [Ratio] 15.3 % Critically high 11.0-15.0 [facility] Comment on above: Performed By: #### C BC ####[facility] Egwkumnzod8[address] [place], [place] [address]DrSkylar Leal Hematocrit (Bld) [Volume fraction] 36.6 % Critically low 42.0-54.0 [facility] Comment on above: Performed By: #### C BC ####[facility] Pdyuemvghc[address] [place], [place] [address]DrSkylar Leal Hemoglobin (Bld) [Mass/Vol] 12.3 g/dL Critically low 14.0-18.0 [facility] Comment on above: Performed By: #### C BC ####[facility] Qyjnrjwwii4109 [place] [address]DrSkylar Leal IG # 0.02 10e3/ul Normal 0.00-0.03 [facility] Comment on above: Performed By: #### C BC ####[facility] Kabeodfsuh1580 [place] [address]DrSkylar Leal IG % 0.3 % Normal 0.0-0.5 [facility] Comment on above: Performed By: #### C BC ####[facility] Qeqdxnahil79[address] [place], [place] [address]DrSkylar Leal LYMPH # 2.8 103/ul Normal 1.2-3.8 [facility] Comment on above: Performed By: #### C BC ####[facility] Uakghoarwe[address] [place], [place] [address]DrSkylar Leal Lymphocytes/100 WBC (Bld) 44.4 % Normal 20.5-60.0 [facility] Comment on above: Performed By: #### C BC ####[facility] Djspakhdag195[address] [place], [place] [address]DrSkylar Leal MANUAL DIFF REQ NO Normal [facility] Comment on above: Performed By: #### C BC ####[facility] Vcreuqgqvf85[address] [place], [place] [address]DrSkylar Leal MCH (RBC) [Entitic mass] 30.4 pg Normal 25.9-34.0 [facility] Comment on above: Performed By: #### C BC ####[facility] Vrkxplzrtf9[address] [place], [place] [address]DrSkylar Leal MCHC (RBC) [Mass/Vol] 33.6 g/dL Normal 29.9-35.2 [facility] Comment on above: Performed By: #### C BC ####[facility] Eytslkxmal594[address] [place], [place] [address]DrSkylar Leal MCV (RBC) [Entitic vol] 90.4 fL Normal 80.0-94.0 [facility] Comment on above: Performed By: #### C BC ####[facility] Tktsikkmlv47[address] [place], [place] [address]Dr. Farhat Leal MONO # 0.7 103/ul Normal 0.3-0.8 [facility] Comment on above: Performed By: #### C BC ####[facility] Klcpyjcuqx04[address] [place], [place] [address]Dr. Farhat Leal Monocytes/100 WBC (Bld) 10.7 % Normal 1.7-12.0 [facility] Comment on above: Performed By: #### C BC ####[facility] Yovqxgokyh94[address] [place], [place] [address]Dr. Farhat Leal NEUT # 2.5 103/ul Normal 1.4-6.5 [facility] Comment on above: Performed By: #### C BC ####[facility] Enusuybjut65[address] [place], [place] [address]Dr. Farhat Leal Neutrophils/100 WBC (Bld) 39.3 % Critically low 43.0-75.0 [facility] Comment on above: Performed By: #### C BC ####[facility] Esbtvsmrhn7[address] [place], [place] [address]Dr. Farhat Leal Platelet mean volume (Bld) [Entitic vol] 10.5 fL Normal 9.5-13.5 [facility] Comment on above: Performed By: #### C BC ####[facility] Rccrlnxkuj5[address] [place], [place] [address]Dr. Farhat Elvis PLT 190 103/ul Normal 150-450 [facility] Comment on above: Performed By: #### C BC ####[facility] Khazuxfpts23[address] [place], [place] [address]Dr. Madelynlorri Evlis RBC 4.05 106/ul Critically low 4.70-6.10 [facility] Comment on above: Performed By: #### C BC ####[facility] Helywzczno[address] [place], [place] [address]Dr. Farhat Leal WBC 6.4 103/ul Normal 4.0-11.0 [facility] Comment on above: Performed By: #### C BC ####[facility] Rkfekcjpre0838 [place] [address]Dr. Farhat Leal PROF 14(COMP METB)on 023 Albumin [Mass/Vol] 2.5 g/dL Critically low 3.4-5.0 [facility] Comment on above: Performed By: #### C MP ####[facility] Ebujzvugha[address] [place], [place] [address]Dr. Farhat Leal Albumin/Globulin [Mass ratio] 0.8 {ratio} Normal [facility] Comment on above: Performed By: #### C MP ####[facility] Usijylptbk469[address] [place], [place] [address]Dr. Farhat Leal ALP [Catalytic activity/Vol] 61 U/L Normal 46-116 [facility] Comment on above: Performed By: #### C MP ####[facility] Nglbqpqjga7[address] [place], [place] [address]Dr. Farhat Leal ALT [Catalytic activity/Vol] 16 U/L Normal 16-63 [facility] Comment on above: Performed By: #### C MP ####[facility] Bvtetxkqws[address] [place], [place] [address]Dr. Farhat Leal Anion gap [Moles/Vol] 12.3 mmol/L Normal [facility] Comment on above: Performed By: #### C MP ####[facility] Yasbbkzygx900[address] [place], [place] [address]Dr. Farhat Leal AST [Catalytic activity/Vol] 18 U/L Normal 15-37 [facility] Comment on above: Performed By: #### C MP ####[facility] Qwulksydhj128[address] [place], [place] [address]Dr. Farhat Leal Bilirubin [Mass/Vol] 0.5 mg/dL Normal 0.2-1.0 [facility] Comment on above: Performed By: #### C MP ####[facility] Olqqycqivt05[address] [place], [place] [address]Dr. Farhat Leal Calcium [Mass/Vol] 8.6 mg/dL Normal 8.5-10.1 [facility] Comment on above: Performed By: #### C MP ####[facility] Hvuxcjlktw0664 [place] [address]Dr. Farhat Elvis Chloride [Moles/Vol] 105 mmol/L Normal 98-107 [facility] Comment on above: Performed By: #### C MP ####[facility] Wxnltxvqwm1230 [place] [address]Dr. Farhat Elvis CO2 [Moles/Vol] 28.6 mmol/L Normal 21.0-32.0 [facility] Comment on above: Performed By: #### C MP ####[facility] Upekbusicc[address] [place], [place] [address]Dr. Farhat Leal Creatinine [Mass/Vol] 1.47 mg/dL Critically high 0.70-1.30 [facility] Comment on above: Performed By: #### C MP ####[facility] Tgzvigeyox[address] [place], [place] [address]Dr. Farhat Elvis EGFR-AF GERMAN 56 mL/min/1.73m2 Critically low >=60 [facility] Comment on above: Performed By: #### C MP ####[facility] Ofpgpscnuy7[address] [place], [place] [address]Dr. Madelynlorri Elvis EGFR-NON AF GERMAN 46 mL/min/1.73m2 Critically low >=60 [facility] Comment on above: Performed By: #### C MP ####[facility] Unsyrropyf836[address] [place], [place] [address]Dr. Fahrat Leal Globulin (S) [Mass/Vol] 3.3 g/dL Normal [facility] Comment on above: Performed By: #### C MP ####[facility] Ydwonmispg176[address] [place], [place] [address]Dr. Farhat Leal Glucose [Mass/Vol] 164 mg/dL Critically high 74-106 [facility] Comment on above: Performed By: #### C MP ####[facility] Zijftbywfe14[address] [place], [place] [address]Dr. Farhat Leal Potassium [Moles/Vol] 3.9 mmol/L Normal 3.5-5.1 [facility] Comment on above: Performed By: #### C MP ####[facility] Lyafhuemnz4722 [place] [address]Dr. Farhat Leal Protein [Mass/Vol] 5.8 g/dL Critically low 6.4-8.2 [facility] Comment on above: Performed By: #### C MP ####[facility] Dgigyxggih9980 [place] [address]Dr. Farhat Leal Sodium [Moles/Vol] 142 mmol/L Normal 136-145 [facility] Comment on above: Performed By: #### C MP ####[facility] K[address]qjydcgc[address] [place], [place] [address]Dr. Farhat Leal Urea nitrogen [Mass/Vol] 53.0 mg/dL Critically high 7.0-18.0 [facility] Comment on above: Performed By: #### C MP ####[facility] Avkvvacttg66[address] [place], [place] [address]Dr. Farhat Leal Urea nitrogen/Creatinine [Mass ratio] 36.1 mg/mg Normal [facility] Comment on above: Performed By: #### C MP ####[facility] Fbetefjjvj[address] [place], [place] [address]DrSkylar Leal PROTIMEon 05-29-2022 INR Coag (PPP) [Relative time] 2.41 {INR} Normal [facility] Comment on above: Performed By: #### P T ####[facility] Skgtybrlfd[address] [place], [place] [address]Dr. Farhat Leal INR GUIDELINES SEE BELOW Normal [facility] Comment on above: Result Comment: MALINA RED INR: 2.0 - 3.0 CONDITIONS NOT LISTED BELOW 2.5 - 3.5 FOR PROSTHETIC HEART VALVE REPLACEMENT 2.5 - 3.5 RECURRENT THROMBOSIS Performed By: #### P T ####[facility] Lmnaooguaj[address] [place], [place] [address]Dr. Farhat Leal PT Coag (PPP) [Time] 24.3 s Critically high 9.0-11.6 [facility] Comment on above: Performed By: #### P T ####[facility] Dikhjxsdyd9[address] [place], [place] [address]Dr. Farhat Leal FK506 (TACROLIMUS) WHOLE BLO ODon 05-25-2022 Tacrolimus (FK506), Blood 5.1 ng/mL Normal 2.0-20.0 [facility] Comment on above: Result Comment: Trou gh (immediately following transplant) 15.0 . Trough (steady state, 2 weeks or more after transplant): 3.0 - 8.0 . Performed by LC-MS/MS technology. Performed By: #### F K506T ####[facility] Yjqkxeawuh[address] [place], [place] [address]Dr. Farhat Leal CBC AUTO DIFFon 05-22-2022 BASO # 0.0 103/ul Normal 0.0-0.1 [facility] Comment on above: Performed By: #### C BC ####[facility] Zicyqvyezx[address] [place], [place] [address]Dr. Farhat Leal Basophils/100 WBC (Bld) 0.5 % Normal 0.2-2.0 [facility] Comment on above: Performed By: #### C BC ####[facility] Takgxzbjns[address] [place], [place] [address]Dr. Farhat Leal EO # 0.2 103/ul Normal 0.0-0.7 [facility] Comment on above: Performed By: #### C BC ####[facility] Wlxziqqrzp66[address] [place], [place] [address]Dr. Farhat Leal Eosinophils/100 WBC (Bld) 4.0 % Normal 0.9-7.0 [facility] Comment on above: Performed By: #### C BC ####[facility] Mkweymgnad23[address] [place], [place] [address]Dr. Farhat Leal Erythrocyte distribution width (RBC) [Ratio] 15.5 % Critically high 11.0-15.0 [facility] Comment on above: Performed By: #### C BC ####[facility] Ycntiffejs737[address] [place], [place] [address]Dr. Farhat Leal Hematocrit (Bld) [Volume fraction] 34.1 % Critically low 42.0-54.0 [facility] Comment on above: Performed By: #### C BC ####[facility] [address]zvbgun[address] [place] [address]Dr. Farhat Leal Hemoglobin (Bld) [Mass/Vol] 11.3 g/dL Critically low 14.0-18.0 [facility] Comment on above: Performed By: #### C BC ####[facility] Kfcewahzkv[address] [place] [address]Dr. Farhat Leal IG # 0.03 10e3/ul Normal 0.00-0.03 [facility] Comment on above: Performed By: #### C BC ####[facility] Ibpggvthlv1826 [place] [address]Dr. Farhat Leal IG % 0.5 % Normal 0.0-0.5 [facility] Comment on above: Performed By: #### C BC ####[facility] Lygjpaojpm24[address] [place], [place] [address]Dr. Farhat Leal LYMPH # 2.1 103/ul Normal 1.2-3.8 [facility] Comment on above: Performed By: #### C BC ####[facility] Zuldqdihhy06[address] [place], [place] [address]Dr. Madelynlorri Leal Lymphocytes/100 WBC (Bld) 34.6 % Normal 20.5-60.0 [facility] Comment on above: Performed By: #### C BC ####[facility] Z[address]ulbrldy2[address] [place] [address]Dr. Farhat Leal MANUAL DIFF REQ NO Normal [facility] Comment on above: Performed By: #### C BC ####[facility] Hqwxvqilap6[address] [place] [address]Dr. Farhat Leal MCH (RBC) [Entitic mass] 30.3 pg Normal 25.9-34.0 [facility] Comment on above: Performed By: #### C BC ####[facility] Ijmdscoiqx9616 [place] [address]Dr. Farhat Leal MCHC (RBC) [Mass/Vol] 33.1 g/dL Normal 29.9-35.2 [facility] Comment on above: Performed By: #### C BC ####[facility] Ydunrxfdnk0781 [place] [id number]. Farhat Leal MCV (RBC) [Entitic vol] 91.4 fL Normal 80.0-94.0 [facility] Comment on above: Performed By: #### C BC ####[facility] Xvrwgzjrhb4185 [place] [id number]. Farhat Leal MONO # 0.7 103/ul Normal 0.3-0.8 [facility] Comment on above: Performed By: #### C BC ####[facility] Izyuobcxkq4234 [place] [address]Dr. Farhat Leal Monocytes/100 WBC (Bld) 11.6 % Normal 1.7-12.0 [facility] Comment on above: Performed By: #### C BC ####[facility] Uzuihgkgan308[address] [place], [place] [address]Dr. Farhat Leal NEUT # 2.9 103/ul Normal 1.4-6.5 [facility] Comment on above: Performed By: #### C BC ####[facility] Xylmezcser[address] [place], [place] [id number]. Farhat Leal Neutrophils/100 WBC (Bld) 48.8 % Normal 43.0-75.0 [facility] Comment on above: Performed By: #### C BC ####[facility] Ybyutoqbzz3075 [place] [id number]. Farhat Leal Platelet mean volume (Bld) [Entitic vol] 10.9 fL Normal 9.5-13.5 [facility] Comment on above: Performed By: #### C BC ####[facility] Luwhvjzbbz1120 [place] [id number]. Farhat Leal PLT 186 103/ul Normal 150-450 [facility] Comment on above: Performed By: #### C BC ####[facility] Wmecgyolmx4235 [place] [id number]. Farhat Elvis RBC 3.73 106/ul Critically low 4.70-6.10 [facility] Comment on above: Performed By: #### C BC ####[facility] Rlkeimxllj5564 [place] [address]Dr. Farhat Leal WBC 6.0 103/ul Normal 4.0-11.0 [facility] Comment on above: Performed By: #### C BC ####[facility] Qpnnoallyg0801 [place] [address]Dr. Farhat Leal PROF 14(COMP METB)on 023 Albumin [Mass/Vol] 2.7 g/dL Critically low 3.4-5.0 Th [facility] Comment on above: Performed By: #### C MP ####[facility] Jdhckljmtp2906 [place] [address]Dr. Farhat Leal Albumin/Globulin [Mass ratio] 0.8 {ratio} Normal [facility] Comment on above: Performed By: #### C MP ####[facility] Hfngsvlktp[address] [place], [place] [address]Dr. Farhat Leal ALP [Catalytic activity/Vol] 60 U/L Normal 46-116 [facility] Comment on above: Performed By: #### C MP ####[facility] Twtvvjmohl1304[address] [place], [place] [address]Dr. Farhat Leal ALT [Catalytic activity/Vol] 17 U/L Normal 16-63 [facility] Comment on above: Performed By: #### C MP ####[facility] Sijrtmlxgf937[address] [place], [place] [address]Dr. Farhat Leal Anion gap [Moles/Vol] 9.6 mmol/L Normal [facility] Comment on above: Performed By: #### C MP ####[facility] Pynzsxhwby46[address] [place], [place] [address]Dr. Farhat Leal AST [Catalytic activity/Vol] 14 U/L Critically low 15-37 [facility] Comment on above: Performed By: #### C MP ####[facility] Dvkpxghzgo1635[address] [place], [place] [address]Dr. Farhat Leal Bilirubin [Mass/Vol] 0.5 mg/dL Normal 0.2-1.0 [facility] Comment on above: Performed By: #### C MP ####[facility] Auqfbdpcds7894 [place] [id number]. Farhat Leal Calcium [Mass/Vol] 8.4 mg/dL Critically low 8.5-10.1 Th [facility] Comment on above: Performed By: #### C MP ####[facility] Wdsfvzeydo8638 [place] [address]Dr. Farhat Leal Chloride [Moles/Vol] 104 mmol/L Normal 98-107 [facility] Comment on above: Performed By: #### C MP ####[facility] Vsinaxvesw7620 [place] [address]Dr. Farhat Leal CO2 [Moles/Vol] 27.2 mmol/L Normal 21.0-32.0 [facility] Comment on above: Performed By: #### C MP ####[facility] Fkvmpglkkx912[address] [place], [place] [address]Dr. Farhat Leal Creatinine [Mass/Vol] 1.24 mg/dL Normal 0.70-1.30 [facility] Comment on above: Performed By: #### C MP ####[facility] Bziwqgdvqo1649 [place] [address]Dr. Farhat Leal EGFR-AF GERMAN >60 Normal >=60 [facility] Comment on above: Performed By: #### C MP ####[facility] Fvctgejtku7202 [place] [address]Dr. Farhat Leal EGFR-NON AF GERMAN 57 mL/min/1.73m2 Critically low >=60 [facility] Comment on above: Performed By: #### C MP ####[facility] Mqzytibara7371 [place] [phone]. Farhat Leal Globulin (S) [Mass/Vol] 3.3 g/dL Normal [facility] Comment on above: Performed By: #### C MP ####[facility] Fxbulgqbgm6038 [place] [address]Dr. Farhat Leal Glucose [Mass/Vol] 275 mg/dL Critically high 74-106 T [facility] Comment on above: Performed By: #### C MP ####[facility] Vewdkeynmz7518 [place] [id number]. Farhat Leal Potassium [Moles/Vol] 3.8 mmol/L Normal 3.5-5.1 [facility] Comment on above: Performed By: #### C MP ####[facility] Ukimkambbq1668 [place] [address]Dr. Farhat Leal Protein [Mass/Vol] 6.0 g/dL Critically low 6.4-8.2 Th [facility] Comment on above: Performed By: #### C MP ####[facility] Grcdzwnaqi447[address] [place], [place] [address]Dr. Farhat Leal Sodium [Moles/Vol] 137 mmol/L Normal 136-145 [facility] Comment on above: Performed By: #### C MP ####[facility] Efswmyllhu017[address] [place], [place] [address]Dr. Farhat Leal Urea nitrogen [Mass/Vol] 54.0 mg/dL Critically high 7.0-18.0 [facility] Comment on above: Performed By: #### C MP ####[facility] Enbbzuggzb[address] [place], [place] [address]Dr. Farhat Leal Urea nitrogen/Creatinine [Mass ratio] 43.5 mg/mg Normal [facility] Comment on above: Performed By: #### C MP ####[facility] Rpzttberqa9[address] [place], [place] [address]Dr. Farhat Leal PROTIMEon 05-22-2022 INR Coag (PPP) [Relative time] 2.27 {INR} Normal [facility] Comment on above: Performed By: #### P T ####[facility] Mgummitkde365[address] [place], [place] [address]Dr. Farhat Leal INR GUIDELINES SEE BELOW Normal [facility] Comment on above: Result Comment: MALINA RED INR: 2.0 - 3.0 CONDITIONS NOT LISTED BELOW 2.5 - 3.5 FOR PROSTHETIC HEART VALVE REPLACEMENT 2.5 - 3.5 RECURRENT THROMBOSIS Performed By: #### P T ####[facility] Aloaxczuio289[address] [place], [place] [address]Dr. Farhat Leal PT Coag (PPP) [Time] 23.0 s Critically high 9.0-11.6 [facility] Comment on above: Performed By: #### P T ####[facility] Skjaqrpcpe74[address] [place], [place] [address]Dr. Farhat Leal FK506 (TACROLIMUS) WHOLE BLO ODon 05-19-2022 Tacrolimus (FK506), Blood 7.8 ng/mL Normal 2.0-20.0 [facility] Comment on above: Result Comment: Trou gh (immediately following transplant) 15.0 . Trough (steady state, 2 weeks or more after transplant): 3.0 - 8.0 . Performed by LC-MS/MS technology. Performed By: #### F K506T ####[facility] Knqrmuqlwb77[address] [place], [place] [address]Dr. Farhat Elvis CBC AUTO DIFFon 05-15-2022 BASO # 0.0 103/ul Normal 0.0-0.1 [facility] Comment on above: Performed By: #### C BC ####[facility] Ytzoztyvrj016[address] [place], [place] [address]Dr. Madelynlorri Leal Basophils/100 WBC (Bld) 0.4 % Normal 0.2-2.0 [facility] Comment on above: Performed By: #### C BC ####[facility] Lzmhtqagcu969[address] [place], [place] [address]Dr. Farhat Leal EO # 0.2 103/ul Normal 0.0-0.7 [facility] Comment on above: Performed By: #### C BC ####[facility] Unslheqqim424[address] [place], [place] [address]Dr. Farhat Leal Eosinophils/100 WBC (Bld) 3.0 % Normal 0.9-7.0 [facility] Comment on above: Performed By: #### C BC ####[facility] Lvsligupqb4734[address] [place], [place] [address]Dr. Farhat Leal Erythrocyte distribution width (RBC) [Ratio] 15.7 % Critically high 11.0-15.0 [facility] Comment on above: Performed By: #### C BC ####[facility] Fyuaickcch1310 [place] [address]Dr. Farhat Leal Hematocrit (Bld) [Volume fraction] 36.8 % Critically low 42.0-54.0 [facility] Comment on above: Performed By: #### C BC ####[facility] Dbwhhbipwu8665 [place] [address]Dr. Farhat Elvis Hemoglobin (Bld) [Mass/Vol] 12.4 g/dL Critically low 14.0-18.0 [facility] Comment on above: Performed By: #### C BC ####[facility] Ojupmmepwj6989 [place] [address]Dr. Farhat Leal IG # 0.01 10e3/ul Normal 0.00-0.03 [facility] Comment on above: Performed By: #### C BC ####[facility] Sbwrgviznz527[address] [place], [place] [address]Dr. Farhat Leal IG % 0.1 % Normal 0.0-0.5 [facility] Comment on above: Performed By: #### C BC ####[facility] Iyqsljisfi007[address] [place], [place] [address]Dr. Madelynlorri Leal LYMPH # 2.4 103/ul Normal 1.2-3.8 [facility] Comment on above: Performed By: #### C BC ####[facility] Rudvylfesa737[address] [place], [place] [address]Dr. Farhat Leal Lymphocytes/100 WBC (Bld) 35.6 % Normal 20.5-60.0 [facility] Comment on above: Performed By: #### C BC ####[facility] Hfyfcqsjii685[address] [place], [place] [address]Dr. Madelynlorri Leal MANUAL DIFF REQ NO Normal [facility] Comment on above: Performed By: #### C BC ####[facility] Hznucdbgtf547[address] [place], [place] [address]Dr. Farhat Leal MCH (RBC) [Entitic mass] 30.1 pg Normal 25.9-34.0 [facility] Comment on above: Performed By: #### C BC ####[facility] Ebujqlwqch9916 [place] [id number]. Farhat Leal MCHC (RBC) [Mass/Vol] 33.7 g/dL Normal 29.9-35.2 [facility] Comment on above: Performed By: #### C BC ####[facility] Wdhcvnezmk2932 [place] [id number]. Farhat Leal MCV (RBC) [Entitic vol] 89.3 fL Normal 80.0-94.0 [facility] Comment on above: Performed By: #### C BC ####[facility] Uoylqqjurt4529 [place] [id number]. Farhat Leal MONO # 0.7 103/ul Normal 0.3-0.8 [facility] Comment on above: Performed By: #### C BC ####[facility] Euovdcuann8875[address] [place], [place] [address]Dr. Madelynlorri Leal Monocytes/100 WBC (Bld) 10.8 % Normal 1.7-12.0 [facility] Comment on above: Performed By: #### C BC ####[facility] F[address]jrysdaj[address] [place], [place] [address]Dr. Farhat Leal NEUT # 3.4 103/ul Normal 1.4-6.5 [facility] Comment on above: Performed By: #### C BC ####[facility] Bdxetuecij7[address] [place], [place] [address]Dr. Farhat Leal Neutrophils/100 WBC (Bld) 50.1 % Normal 43.0-75.0 [facility] Comment on above: Performed By: #### C BC ####[facility] Fngcjoakax1351 [place] [id number]. Farhat Leal Platelet mean volume (Bld) [Entitic vol] 10.2 fL Normal 9.5-13.5 [facility] Comment on above: Performed By: #### C BC ####[facility] Scoaganpso488[address] [place], [place] [address]Dr. Farhat Elvis PLT 190 103/ul Normal 150-450 [facility] Comment on above: Performed By: #### C BC ####[facility] Irxfmqwfch3801 [place] [address]Dr. Farhat Leal RBC 4.12 106/ul Critically low 4.70-6.10 [facility] Comment on above: Performed By: #### C BC ####[facility] Arxsthginj7293 [place] [address]Dr. Farhat Leal WBC 6.8 103/ul Normal 4.0-11.0 [facility] Comment on above: Performed By: #### C BC ####[facility] Cdkftrxmok1053 [place] [address]Dr. Farhat Leal PROF 14(COMP METB)on 023 Albumin [Mass/Vol] 2.8 g/dL Critically low 3.4-5.0 [facility] Comment on above: Performed By: #### C MP ####[facility] Iwlkoyofqm[address] [place], [place] [address]Dr. Farhat Leal Albumin/Globulin [Mass ratio] 0.9 {ratio} Normal [facility] Comment on above: Performed By: #### C MP ####[facility] Gpomwlvvey5950[address] [place], [place] [address]Dr. Farhat Leal ALP [Catalytic activity/Vol] 66 U/L Normal 46-116 [facility] Comment on above: Performed By: #### C MP ####[facility] Bvdcrsubma915[address] [place], [place] [address]Dr. Farhat Leal ALT [Catalytic activity/Vol] 15 U/L Critically low 16-63 [facility] Comment on above: Performed By: #### C MP ####[facility] Rpkdfrydwk932[address] [place], [place] [address]Dr. Farhat Leal Anion gap [Moles/Vol] 11.1 mmol/L Normal [facility] Comment on above: Performed By: #### C MP ####[facility] Kmfjhjcnpx3650[address] [place], [place] [address]Dr. Farhat Leal AST [Catalytic activity/Vol] 14 U/L Critically low 15-37 [facility] Comment on above: Performed By: #### C MP ####[facility] Ircwdjarhs7802 [place] [address]Dr. Farhat Leal Bilirubin [Mass/Vol] 0.8 mg/dL Normal 0.2-1.0 [facility] Comment on above: Performed By: #### C MP ####[facility] Avnlqrlwxv764[address] [place], [place] [address]Dr. Farhat Leal Calcium [Mass/Vol] 8.9 mg/dL Normal 8.5-10.1 The [facility] Comment on above: Performed By: #### C MP ####[facility] Iggqykspuo9213[address] [place], [place] [address]Dr. Farhat Leal Chloride [Moles/Vol] 101 mmol/L Normal 98-107 [facility] Comment on above: Performed By: #### C MP ####[facility] Nmisxnwstb3700[address] [place], [place] [address]Dr. Farhat Elvis CO2 [Moles/Vol] 28.2 mmol/L Normal 21.0-32.0 [facility] Comment on above: Performed By: #### C MP ####[facility] Hejtonpjzr8[address] [place], [place] [address]Dr. Farhat Elvis Creatinine [Mass/Vol] 1.23 mg/dL Normal 0.70-1.30 [facility] Comment on above: Performed By: #### C MP ####[facility] Ephiavspvu475[address] [place], [place] [address]Dr. Madelynlorri Elvis EGFR-AF GERMAN >60 Normal >=60 [facility] Comment on above: Performed By: #### C MP ####[facility] Hyhnzsnglr[address] [place], [place] [address]Dr. Madelynlorri Elvis EGFR-NON AF GERMAN 57 mL/min/1.73m2 Critically low >=60 [facility] Comment on above: Performed By: #### C MP ####[facility] Pzdrzcdosa84[address] [place], [place] [address]Dr. Farhat Leal Globulin (S) [Mass/Vol] 3.2 g/dL Normal [facility] Comment on above: Performed By: #### C MP ####[facility] Wvizzewknz888[address] [place], [place] [address]Dr. Farhat Elvis Glucose [Mass/Vol] 333 mg/dL Critically high 74-106 T [facility] Comment on above: Performed By: #### C MP ####[facility] Lcevlvrcwa9190 [place] [address]Dr. Farhat Elvis Potassium [Moles/Vol] 4.3 mmol/L Normal 3.5-5.1 [facility] Comment on above: Performed By: #### C MP ####[facility] Zicvwkftfu600[address] [place], [place] [address]Dr. Farhat Leal Protein [Mass/Vol] 6.0 g/dL Critically low 6.4-8.2 [facility] Comment on above: Performed By: #### C MP ####[facility] Yxqjtifdkn227[address] [place], [place] [address]Dr. Farhat Leal Sodium [Moles/Vol] 136 mmol/L Normal 136-145 [facility] Comment on above: Performed By: #### C MP ####[facility] Owwuvumuiz1895[address] [place], [place] [address]Dr. Farhat Leal Urea nitrogen [Mass/Vol] 58.0 mg/dL Critically high 7.0-18.0 [facility] Comment on above: Performed By: #### C MP ####[facility] Emyxkbrxdy1914[address] [place], [place] [address]Dr. Farhat Leal Urea nitrogen/Creatinine [Mass ratio] 47.2 mg/mg Normal [facility] Comment on above: Performed By: #### C MP ####[facility] Czxqrayzsa503[address] [place], [place] [address]Dr. Farhat Leal PROTIMEon 05-13-2022 INR Coag (PPP) [Relative time] 3.51 {INR} Normal [facility] Comment on above: Performed By: #### P T ####[facility] Azbkktvpyl7035[address] [place], [place] [address]Dr. Farhat eLal INR GUIDELINES SEE BELOW Normal [facility] Comment on above: Result Comment: MALINA RED INR: 2.0 - 3.0 CONDITIONS NOT LISTED BELOW 2.5 - 3.5 FOR PROSTHETIC HEART VALVE REPLACEMENT 2.5 - 3.5 RECURRENT THROMBOSIS Performed By: #### P T ####[facility] Nhijnyrlbv2714 [place] [address]DrSkylar Leal PT Coag (PPP) [Time] 34.7 s Critically high 9.0-11.6 [facility] Comment on above: Performed By: #### P T ####[facility] Nrnbuzzqtf74[address] [place], [place] [address]DrSkylar Leal FK506 (TACROLIMUS) WHOLE BLO ODon 05-11-2022 Tacrolimus (FK506), Blood 14.4 ng/mL Normal 2.0-20.0 [facility] Comment on above: Result Comment: Trou gh (immediately following transplant) 15.0 . Trough (steady state, 2 weeks or more after transplant): 3.0 - 8.0 . Performed by LC-MS/MS technology. Performed By: #### F K506T ####[facility] Rtagnwfjhc[address] [place], [place] [address]DrSkylar Leal CBC AUTO DIFFon 05-08-2022 BASO # 0.0 103/ul Normal 0.0-0.1 [facility] Comment on above: Performed By: #### C BC ####[facility] Btbjysopca0924[address] [place], [place] [address]DrSkylar Leal Basophils/100 WBC (Bld) 0.5 % Normal 0.2-2.0 [facility] Comment on above: Performed By: #### C BC ####[facility] Frrkfqkdph2714[address] [place], [place] [address]DrSkylar Leal EO # 0.2 103/ul Normal 0.0-0.7 [facility] Comment on above: Performed By: #### C BC ####[facility] Nwagwfnukj517[address] [place], [place] [address]DrSkylar Leal Eosinophils/100 WBC (Bld) 2.9 % Normal 0.9-7.0 [facility] Comment on above: Performed By: #### C BC ####[facility] Ewaxowfjue457[address] [place], [place] [address]DrSkylar Leal Erythrocyte distribution width (RBC) [Ratio] 16.0 % Critically high 11.0-15.0 [facility] Comment on above: Performed By: #### C BC ####[facility] Mhysdbhngu4914 [place] [address]DrSkylar Leal Hematocrit (Bld) [Volume fraction] 35.7 % Critically low 42.0-54.0 [facility] Comment on above: Performed By: #### C BC ####[facility] Jyxuvckdbq1410[address] [place], [place] [address]DrSkylar Leal Hemoglobin (Bld) [Mass/Vol] 11.9 g/dL Critically low 14.0-18.0 [facility] Comment on above: Performed By: #### C BC ####[facility] Zmqpgssyor8[address] [place], [place] [address]DrSkylar Leal IG # 0.03 10e3/ul Normal 0.00-0.03 [facility] Comment on above: Performed By: #### C BC ####[facility] Vsxewfdlbo446[address] [place], [place] [address]DrSkylar Leal IG % 0.5 % Normal 0.0-0.5 [facility] Comment on above: Performed By: #### C BC ####[facility] Iggyyagbvd065[address] [place], [place] [address]DrSkylar Leal LYMPH # 2.4 103/ul Normal 1.2-3.8 [facility] Comment on above: Performed By: #### C BC ####[facility] Egdbggsynb3738[address] [place], [place] [address]DrSkylar Leal Lymphocytes/100 WBC (Bld) 37.8 % Normal 20.5-60.0 [facility] Comment on above: Performed By: #### C BC ####[facility] Fkhccbczhc73[address] [place], [place] [address]DrSkylar Leal MANUAL DIFF REQ NO Normal [facility] Comment on above: Performed By: #### C BC ####[facility] Aknkiksqah009[address] [place], [place] [address]DrSkylar Leal MCH (RBC) [Entitic mass] 30.4 pg Normal 25.9-34.0 [facility] Comment on above: Performed By: #### C BC ####[facility] Ljhdjcoysd5558 [place] [address]Dr. Farhat Leal MCHC (RBC) [Mass/Vol] 33.3 g/dL Normal 29.9-35.2 [facility] Comment on above: Performed By: #### C BC ####[facility] Taeabrmdcc29[address] [place], [place] [address]DrSkylar Leal MCV (RBC) [Entitic vol] 91.1 fL Normal 80.0-94.0 [facility] Comment on above: Performed By: #### C BC ####[facility] Cienuydica[address] [place], [place] [address]DrSkylar Leal MONO # 0.7 103/ul Normal 0.3-0.8 [facility] Comment on above: Performed By: #### C BC ####[facility] Pvandifkdb110[address] [place], [place] [address]Dr. Farhat Leal Monocytes/100 WBC (Bld) 11.1 % Normal 1.7-12.0 [facility] Comment on above: Performed By: #### C BC ####[facility] Strxnjtcnu146[address] [place], [place] [address]DrSkylar Leal NEUT # 2.9 103/ul Normal 1.4-6.5 [facility] Comment on above: Performed By: #### C BC ####[facility] Qgqqrdxvcg166[address] [place], [place] [address]Dr. Farhat Leal Neutrophils/100 WBC (Bld) 47.2 % Normal 43.0-75.0 [facility] Comment on above: Performed By: #### C BC ####[facility] Mnlnodutma48[address] [place], [place] [address]DrSkylar Leal Platelet mean volume (Bld) [Entitic vol] 11.0 fL Normal 9.5-13.5 [facility] Comment on above: Performed By: #### C BC ####[facility] Ydxzfbvnrd600[address] [place], [place] [address]Dr. Farhat Leal PLT 191 103/ul Normal 150-450 [facility] Comment on above: Performed By: #### C BC ####[facility] Nrbzagfiyg9050 [place] [id number]. Farhat Leal RBC 3.92 106/ul Critically low 4.70-6.10 [facility] Comment on above: Performed By: #### C BC ####[facility] Karwiayarn8627 [place] [id number]. Farhat Leal WBC 6.2 103/ul Normal 4.0-11.0 [facility] Comment on above: Performed By: #### C BC ####[facility] Vyalgbkkte[address] [place] [address]Dr. Farhat Leal MAGNESIUMon 05-08-2022 Magnesium [Mass/Vol] 1.9 mg/dL Normal 1.8-2.4 [facility] Comment on above: Performed By: #### P HOS, MG ####[facility] Rxbkjzfonm4[address] [place] [address]Dr. Farhat Leal PHOSPHORUSon 05-08-2022 Phosphate [Mass/Vol] 4.5 mg/dL Normal 2.6-4.7 [facility] Comment on above: Performed By: #### P HOS, MG ####[facility] Lnmfiadhkf[address] [place], [place] [address]Dr. Farhat Leal PROF 14(COMP METB)on 023 Albumin [Mass/Vol] 2.9 g/dL Critically low 3.4-5.0 [facility] Comment on above: Performed By: #### C MP ####[facility] Vyoobawkmq4583 [place] [address]Dr. Farhat Leal Albumin/Globulin [Mass ratio] 0.9 {ratio} Normal [facility] Comment on above: Performed By: #### C MP ####[facility] Qkfzcsrbkm0586 [place] [address]Dr. Farhat Leal ALP [Catalytic activity/Vol] 70 U/L Normal 46-116 [facility] Comment on above: Performed By: #### C MP ####[facility] Glkzqchnyw0722 [place] [id number]. Farhat Leal ALT [Catalytic activity/Vol] 13 U/L Critically low 16-63 [facility] Comment on above: Performed By: #### C MP ####[facility] Bhoobvvgle3230 [place] [address]Dr. Farhat Leal Anion gap [Moles/Vol] 14.6 mmol/L Normal [facility] Comment on above: Performed By: #### C MP ####[facility] Cpjuxoplcw7800 [place] [address]Dr. Farhat Leal AST [Catalytic activity/Vol] 17 U/L Normal 15-37 [facility] Comment on above: Performed By: #### C MP ####[facility] Mcopmqcdcq[address] [place], [place] [address]Dr. Farhat Leal Bilirubin [Mass/Vol] 0.8 mg/dL Normal 0.2-1.0 [facility] Comment on above: Performed By: #### C MP ####[facility] Hawbrabxwj24[address] [place], [place] [address]Dr. Farhat Leal Calcium [Mass/Vol] 8.9 mg/dL Normal 8.5-10.1 [facility] Comment on above: Performed By: #### C MP ####[facility] Oxhtbouvxx813[address] [place], [place] [address]Dr. Farhat Leal Chloride [Moles/Vol] 102 mmol/L Normal 98-107 [facility] Comment on above: Performed By: #### C MP ####[facility] Shwiratkzo0061 [place] [address]Dr. Farhat Leal CO2 [Moles/Vol] 22.9 mmol/L Normal 21.0-32.0 [facility] Comment on above: Performed By: #### C MP ####[facility] Urkkkgpnxn790[address] [place], [place] [address]Dr. Farhat Leal Creatinine [Mass/Vol] 1.20 mg/dL Normal 0.70-1.30 [facility] Comment on above: Performed By: #### C MP ####[facility] Ftbiwkqgoq1995 [place] [id number]. Farhat Leal EGFR-AF GERMAN >60 Normal >=60 [facility] Comment on above: Performed By: #### C MP ####[facility] Pzbhwljqrn2111 [place] [address]Dr. Farhat Leal EGFR-NON AF GERMAN 59 mL/min/1.73m2 Critically low >=60 [facility] Comment on above: Performed By: #### C MP ####[facility] Eclreztply3286 [place] [address]Dr. Farhat Leal Globulin (S) [Mass/Vol] 3.1 g/dL Normal [facility] Comment on above: Performed By: #### C MP ####[facility] Qzmhitfxxa296[address] [place], [place] [address]Dr. Farhat Leal Glucose [Mass/Vol] 447 mg/dL Critically high 74-106 T [facility] Comment on above: Performed By: #### C MP ####[facility] Hyvcdodhbi16[address] [place], [place] [address]Dr. Farhat Elvis Potassium [Moles/Vol] 4.5 mmol/L Normal 3.5-5.1 [facility] Comment on above: Performed By: #### C MP ####[facility] Yuufbjeggn717[address] [place], [place] [address]Dr. Farhat Elvis Protein [Mass/Vol] 6.0 g/dL Critically low 6.4-8.2 Th [facility] Comment on above: Performed By: #### C MP ####[facility] Uncmdsvbwi8588 [place] [address]Dr. Farhat Leal Sodium [Moles/Vol] 135 mmol/L Critically low 136-145 Th [facility] Comment on above: Performed By: #### C MP ####[facility] Pghitefodb5714[address] [place], [place] [address]Dr. Farhat Leal Urea nitrogen [Mass/Vol] 52.0 mg/dL Critically high 7.0-18.0 [facility] Comment on above: Performed By: #### C MP ####[facility] Yxjenibopu640[address] [place], [place] [address]DrSkylar Leal Urea nitrogen/Creatinine [Mass ratio] 43.3 mg/mg Normal [facility] Comment on above: Performed By: #### C MP ####[facility] Oqnuwowumj1167 [place] [address]DrSkylar Joshilorri Elvis PROTIMEon 05-06-2022 INR Coag (PPP) [Relative time] 2.25 {INR} Normal [facility] Comment on above: Performed By: #### P T ####[facility] Sfcqgkjwng5979 [place] [address]DrSkylar Leal INR GUIDELINES SEE BELOW Normal [facility] Comment on above: Result Comment: MALINA RED INR: 2.0 - 3.0 CONDITIONS NOT LISTED BELOW 2.5 - 3.5 FOR PROSTHETIC HEART VALVE REPLACEMENT 2.5 - 3.5 RECURRENT THROMBOSIS Performed By: #### P T ####[facility] Nqwmyzwsvx800[address] [place], [place] [address]DrSkylar Leal PT Coag (PPP) [Time] 22.8 s Critically high 9.0-11.6 [facility] Comment on above: Performed By: #### P T ####[facility] Htvhpgetsr5680[address] [place], [place] [address]DrSkylar Leal FK506 (TACROLIMUS) WHOLE BLO ODon 05-04-2022 Tacrolimus (FK506), Blood 10.4 ng/mL Normal 2.0-20.0 [facility] Comment on above: Result Comment: Trou gh (immediately following transplant) 15.0 . Trough (steady state, 2 weeks or more after transplant): 3.0 - 8.0 . Performed by LC-MS/MS technology. Performed By: #### F K506T ####[facility] Wvpnwovzhk8838 [place] [address]DrSkylar Leal CBC AUTO DIFFon 05-01-2022 BASO # 0.1 103/ul Normal 0.0-0.1 [facility] Comment on above: Performed By: #### C BC ####[facility] Syqkhkhfql740[address] [place], [place] [address]DrSkylar Leal Basophils/100 WBC (Bld) 0.7 % Normal 0.2-2.0 [facility] Comment on above: Performed By: #### C BC ####[facility] Kmmotjlyzn114[address] [place], [place] [address]Dr. Farhat Leal EO # 0.2 103/ul Normal 0.0-0.7 [facility] Comment on above: Performed By: #### C BC ####[facility] Jdahtmbycv0260[address] [place], [place] [address]Dr. Farhat Leal Eosinophils/100 WBC (Bld) 3.2 % Normal 0.9-7.0 [facility] Comment on above: Performed By: #### C BC ####[facility] Xpdcjumsux955[address] [place], [place] [address]Dr. Farhat Leal Erythrocyte distribution width (RBC) [Ratio] 16.4 % Critically high 11.0-15.0 [facility] Comment on above: Performed By: #### C BC ####[facility] Kkobtnxjkl9787[address] [place], [place] [address]Dr. Farhat Leal Hematocrit (Bld) [Volume fraction] 35.1 % Critically low 42.0-54.0 [facility] Comment on above: Performed By: #### C BC ####[facility] Hqunykwprm205[address] [place], [place] [address]Dr. Farhat Leal Hemoglobin (Bld) [Mass/Vol] 11.6 g/dL Critically low 14.0-18.0 [facility] Comment on above: Performed By: #### C BC ####[facility] Msvhwqofym755[address] [place], [place] [address]Dr. Farhat Leal IG # 0.03 10e3/ul Normal 0.00-0.03 [facility] Comment on above: Performed By: #### C BC ####[facility] Cawcxdycbo2280[address] [place], [place] [address]Dr. Farhat Leal IG % 0.4 % Normal 0.0-0.5 [facility] Comment on above: Performed By: #### C BC ####[facility] Ksjccajizh93[address] [place], [place] [address]Dr. Farhat Leal LYMPH # 2.4 103/ul Normal 1.2-3.8 [facility] Comment on above: Performed By: #### C BC ####[facility] Taopjvdgvy6193 [place] [address]Dr. Farhat Leal Lymphocytes/100 WBC (Bld) 35.1 % Normal 20.5-60.0 [facility] Comment on above: Performed By: #### C BC ####[facility] Yooqmzovts7088 [place] [address]DrSkylar Leal MANUAL DIFF REQ NO Normal [facility] Comment on above: Performed By: #### C BC ####[facility] Gkwitrrolx3792 [place] [address]Dr. Farhat Leal MCH (RBC) [Entitic mass] 29.4 pg Normal 25.9-34.0 [facility] Comment on above: Performed By: #### C BC ####[facility] Timgylpqvv684[address] [place], [place] [address]Dr. Farhat Leal MCHC (RBC) [Mass/Vol] 33.0 g/dL Normal 29.9-35.2 [facility] Comment on above: Performed By: #### C BC ####[facility] Blsqpgdvdl436[address] [place], [place] [address]DrSkylar Leal MCV (RBC) [Entitic vol] 88.9 fL Normal 80.0-94.0 [facility] Comment on above: Performed By: #### C BC ####[facility] Znfcxvvgre0988[address] [place], [place] [address]Dr. Farhat Leal MONO # 0.7 103/ul Normal 0.3-0.8 [facility] Comment on above: Performed By: #### C BC ####[facility] Itcfamhfsz958[address] [place], [place] [address]Dr. Farhat Leal Monocytes/100 WBC (Bld) 9.6 % Normal 1.7-12.0 [facility] Comment on above: Performed By: #### C BC ####[facility] Mxirtqrfnf038[address] [place], [place] [address]Dr. Farhat Leal NEUT # 3.5 103/ul Normal 1.4-6.5 [facility] Comment on above: Performed By: #### C BC ####[facility] Adsbbsqnmu9215 [place] [address]Dr. Farhat Leal Neutrophils/100 WBC (Bld) 51.0 % Normal 43.0-75.0 [facility] Comment on above: Performed By: #### C BC ####[facility] Upqxpcxdsa0434 [place] [address]Dr. Farhat Leal Platelet mean volume (Bld) [Entitic vol] 10.3 fL Normal 9.5-13.5 [facility] Comment on above: Performed By: #### C BC ####[facility] Iowzdihcow27[address] [place], [place] [address]Dr. Farhat Leal PLT 184 103/ul Normal 150-450 [facility] Comment on above: Performed By: #### C BC ####[facility] Nnjsmbitwz0104 [place] [address]Dr. Farhat Leal RBC 3.95 106/ul Critically low 4.70-6.10 [facility] Comment on above: Performed By: #### C BC ####[facility] Njpmtnezgy327[address] [place], [place] [address]Dr. Fahrat Leal WBC 7.0 103/ul Normal 4.0-11.0 [facility] Comment on above: Performed By: #### C BC ####[facility] Lcnhiarazb4544[address] [place], [place] [address]DrSkylar Leal PROF 14(COMP METB)on 023 Albumin [Mass/Vol] 2.6 g/dL Critically low 3.4-5.0 [facility] Comment on above: Performed By: #### C MP ####[facility] Hmblwvcirl666[address] [place], [place] [address]DrSkylar Leal Albumin/Globulin [Mass ratio] 0.9 {ratio} Normal [facility] Comment on above: Performed By: #### C MP ####[facility] Lfernhdqzp4986 [place] [address]DrSkylar Leal ALP [Catalytic activity/Vol] 53 U/L Normal 46-116 [facility] Comment on above: Performed By: #### C MP ####[facility] Xzznlnaxzt1979 [place] [address]Dr. Farhat Leal ALT [Catalytic activity/Vol] 17 U/L Normal 16-63 [facility] Comment on above: Performed By: #### C MP ####[facility] Dymchsqzzs630[address] [place], [place] [address]Dr. Farhat Leal Anion gap [Moles/Vol] 10.0 mmol/L Normal Th [facility] Comment on above: Performed By: #### C MP ####[facility] Bjekozvxyn489[address] [place], [place] [address]Dr. Farhat Leal AST [Catalytic activity/Vol] 19 U/L Normal 15-37 [facility] Comment on above: Performed By: #### C MP ####[facility] Couogglfsy3201[address] [place], [place] [address]Dr. Farhat Leal Bilirubin [Mass/Vol] 0.5 mg/dL Normal 0.2-1.0 [facility] Comment on above: Performed By: #### C MP ####[facility] Hdnwpuatih778[address] [place], [place] [address]Dr. Farhat Leal Calcium [Mass/Vol] 8.4 mg/dL Critically low 8.5-10.1 [facility] Comment on above: Performed By: #### C MP ####[facility] Qxxusxviai924[address] [place], [place] [address]Dr. Farhat Leal Chloride [Moles/Vol] 108 mmol/L Critically high 98-107 [facility] Comment on above: Performed By: #### C MP ####[facility] Ittpnynxxm469[address] [place], [place] [address]Dr. Farhat Leal CO2 [Moles/Vol] 26.9 mmol/L Normal 21.0-32.0 [facility] Comment on above: Performed By: #### C MP ####[facility] Rxjpifxmys1495[address] [place], [place] [address]Dr. Farhat Leal Creatinine [Mass/Vol] 1.20 mg/dL Normal 0.70-1.30 [facility] Comment on above: Performed By: #### C MP ####[facility] Phubarnlvy8608 [place] [id number]. Farhat Leal EGFR-AF GERMAN >60 Normal >=60 [facility] Comment on above: Performed By: #### C MP ####[facility] Jalazexwgg8205 [place] [id number]. Farhat Elvis EGFR-NON AF GERMAN 59 mL/min/1.73m2 Critically low >=60 [facility] Comment on above: Performed By: #### C MP ####[facility] Bntqadwogb1884 [place] [id number]. Farhat Elvis Globulin (S) [Mass/Vol] 3.0 g/dL Normal [facility] Comment on above: Performed By: #### C MP ####[facility] Zuloljjqgm7874 [place] [address]Dr. Farhat Elvis Glucose [Mass/Vol] 213 mg/dL Critically high 74-106 [facility] Comment on above: Performed By: #### C MP ####[facility] Hydgacooek4341 [place] [id number]. Farhat Elvis Potassium [Moles/Vol] 3.9 mmol/L Normal 3.5-5.1 [facility] Comment on above: Performed By: #### C MP ####[facility] Jtefdpmvmc7440 [place] [id number]. Farhat Elvis Protein [Mass/Vol] 5.6 g/dL Critically low 6.4-8.2 Th [facility] Comment on above: Performed By: #### C MP ####[facility] Qjziyrisvr0350 [place] [id number]. Farhat Leal Sodium [Moles/Vol] 141 mmol/L Normal 136-145 [facility] Comment on above: Performed By: #### C MP ####[facility] Qbwtqzzngf3512 [place] [id number]. Farhat Elvis Urea nitrogen [Mass/Vol] 61.0 mg/dL Critically high 7.0-18.0 [facility] Comment on above: Performed By: #### C MP ####[facility] Zmaasxuguk9172 [place] [address]Dr. Farhat Leal Urea nitrogen/Creatinine [Mass ratio] 50.8 mg/mg Normal [facility] Comment on above: Performed By: #### C MP ####[facility] Kbbmxcpyqr367[address] [place], [place] [address]Dr. Farhat Leal FK506 (TACROLIMUS) WHOLE BLO ODon 04-27-2022 Tacrolimus (FK506), Blood 16.5 ng/mL Normal 2.0-20.0 [facility] Comment on above: Result Comment: Trou gh (immediately following transplant) 15.0 . Trough (steady state, 2 weeks or more after transplant): 3.0 - 8.0 . Performed by LC-MS/MS technology. Performed By: #### F K506T ####[facility] Lzunrwrekc427[address] [place], [place] [address]DrSkylar Farhat Elvis CBC AUTO DIFFon 04-24-2022 BASO # 0.0 103/ul Normal 0.0-0.1 [facility] Comment on above: Performed By: #### C BC ####[facility] Euzmimdgid888[address] [place], [place] [address]Dr. Madelynlorri Leal Basophils/100 WBC (Bld) 0.5 % Normal 0.2-2.0 [facility] Comment on above: Performed By: #### C BC ####[facility] Dkxpzjcgxr5232[address] [place], [place] [address]DrSkylar Farhat Elvis EO # 0.2 103/ul Normal 0.0-0.7 [facility] Comment on above: Performed By: #### C BC ####[facility] Shoggkopsd386[address] [place], [place] [address]Dr. Farhat Leal Eosinophils/100 WBC (Bld) 3.1 % Normal 0.9-7.0 [facility] Comment on above: Performed By: #### C BC ####[facility] Xyqmlzpgnx457[address] [place], [place] [address]Dr. Farhat Leal Erythrocyte distribution width (RBC) [Ratio] 16.3 % Critically high 11.0-15.0 [facility] Comment on above: Performed By: #### C BC ####[facility] Mzcsnapoyy8980 [place] [address]DrSkylar Leal Hematocrit (Bld) [Volume fraction] 34.0 % Critically low 42.0-54.0 [facility] Comment on above: Performed By: #### C BC ####[facility] Tymcwiexde8371 [place] [address]DrSkylar Leal Hemoglobin (Bld) [Mass/Vol] 11.6 g/dL Critically low 14.0-18.0 [facility] Comment on above: Performed By: #### C BC ####[facility] Rablhrquvz027[address] [place], [place] [address]DrSkylar Leal IG # 0.02 10e3/ul Normal 0.00-0.03 [facility] Comment on above: Performed By: #### C BC ####[facility] Sicrnenvff810[address] [place], [place] [address]DrSkylar Leal IG % 0.4 % Normal 0.0-0.5 [facility] Comment on above: Performed By: #### C BC ####[facility] Abzqinlahs995[address] [place], [place] [address]DrSkylar Leal LYMPH # 2.2 103/ul Normal 1.2-3.8 [facility] Comment on above: Performed By: #### C BC ####[facility] Ppbqqulbvc1416[address] [place], [place] [address]DrSkylar Leal Lymphocytes/100 WBC (Bld) 38.8 % Normal 20.5-60.0 [facility] Comment on above: Performed By: #### C BC ####[facility] Htmedhrjvr85[address] [place], [place] [address]DrSkylar Leal MANUAL DIFF REQ NO Normal [facility] Comment on above: Performed By: #### C BC ####[facility] Mskbnetxff5771 [place] [address]DrSkylar Leal MCH (RBC) [Entitic mass] 30.1 pg Normal 25.9-34.0 [facility] Comment on above: Performed By: #### C BC ####[facility] Nmnfpkdkzz4848 [place] [address]Dr. Farhat Leal MCHC (RBC) [Mass/Vol] 34.1 g/dL Normal 29.9-35.2 [facility] Comment on above: Performed By: #### C BC ####[facility] Enjywrujky5238 [place] [address]DrSkylar Leal MCV (RBC) [Entitic vol] 88.1 fL Normal 80.0-94.0 [facility] Comment on above: Performed By: #### C BC ####[facility] Npisdeknoo9[address] [place], [place] [address]DrSkylar Leal MONO # 0.6 103/ul Normal 0.3-0.8 [facility] Comment on above: Performed By: #### C BC ####[facility] Jvowwcalnn384[address] [place], [place] [address]Dr. Farhat Leal Monocytes/100 WBC (Bld) 10.8 % Normal 1.7-12.0 [facility] Comment on above: Performed By: #### C BC ####[facility] Mgqqdflthv22[address] [place], [place] [address]DrSkylar Leal NEUT # 2.6 103/ul Normal 1.4-6.5 [facility] Comment on above: Performed By: #### C BC ####[facility] Qrypzrwzad8714[address] [place], [place] [address]Dr. Farhat Leal Neutrophils/100 WBC (Bld) 46.4 % Normal 43.0-75.0 [facility] Comment on above: Performed By: #### C BC ####[facility] Xgrelqmafa0124[address] [place], [place] [address]DrSkylar Leal Platelet mean volume (Bld) [Entitic vol] 10.9 fL Normal 9.5-13.5 [facility] Comment on above: Performed By: #### C BC ####[facility] Nnmwdlpdgu225[address] [place], [place] [address]Dr. Farhat Leal PLT 159 103/ul Normal 150-450 [facility] Comment on above: Performed By: #### C BC ####[facility] Lbzheckqir2579 [place] [address]Dr. Farhat Leal RBC 3.86 106/ul Critically low 4.70-6.10 [facility] Comment on above: Performed By: #### C BC ####[facility] Ptnuwabqre6452 [place] [address]Dr. Farhat Leal WBC 5.6 103/ul Normal 4.0-11.0 [facility] Comment on above: Performed By: #### C BC ####[facility] Maqevkpvbk2147 [place] [address]Dr. Farhat Leal PROTIMEon 04-24-2022 INR Coag (PPP) [Relative time] 3.23 {INR} Normal [facility] Comment on above: Performed By: #### P T ####[facility] Duzcipwozg0418 [place] [address]Dr. Farhat Leal INR GUIDELINES SEE BELOW Normal [facility] Comment on above: Result Comment: MALINA RED INR: 2.0 - 3.0 CONDITIONS NOT LISTED BELOW 2.5 - 3.5 FOR PROSTHETIC HEART VALVE REPLACEMENT 2.5 - 3.5 RECURRENT THROMBOSIS Performed By: #### P T ####[facility] Mbzbcehdoo9971 [place] [address]Dr. Farhat Leal PT Coag (PPP) [Time] 32.0 s Critically high 9.0-11.6 [facility] Comment on above: Performed By: #### P T ####[facility] Ugnklyarfe2716 [place] [address]Dr. Farhat Leal FK506 (TACROLIMUS) WHOLE BLO ODon 04-20-2022 Tacrolimus (FK506), Blood 13.9 ng/mL Normal 2.0-20.0 [facility] Comment on above: Result Comment: Trou gh (immediately following transplant) 15.0 . Trough (steady state, 2 weeks or more after transplant): 3.0 - 8.0 . Performed by LC-MS/MS technology. Performed By: #### F K506T ####[facility] Bvvmckjioc5225 [place] [id number]. Farhat Leal CBC AUTO DIFFon 04-17-2022 BASO # 0.0 103/ul Normal 0.0-0.1 [facility] Comment on above: Performed By: #### C BC ####[facility] Fhkdqazoyu9[address] [place], [place] [address]Dr. Madelynlorri Leal Basophils/100 WBC (Bld) 0.4 % Normal 0.2-2.0 [facility] Comment on above: Performed By: #### C BC ####[facility] Ozxevfxvgn500[address] [place], [place] [address]Dr. Farhat Elvis EO # 0.2 103/ul Normal 0.0-0.7 [facility] Comment on above: Performed By: #### C BC ####[facility] Kobvqinusd376[address] [place], [place] [address]Dr. Madelynlorri Leal Eosinophils/100 WBC (Bld) 2.8 % Normal 0.9-7.0 [facility] Comment on above: Performed By: #### C BC ####[facility] Qpdspdqics374[address] [place], [place] [address]Dr. Farhat Leal Erythrocyte distribution width (RBC) [Ratio] 16.1 % Critically high 11.0-15.0 [facility] Comment on above: Performed By: #### C BC ####[facility] Txgbwwvgqj101[address] [place], [place] [address]Dr. Farhat Leal Hematocrit (Bld) [Volume fraction] 35.7 % Critically low 42.0-54.0 [facility] Comment on above: Performed By: #### C BC ####[facility] Jyqbfigkwe87[address] [place], [place] [address]Dr. Farhat Leal Hemoglobin (Bld) [Mass/Vol] 12.2 g/dL Critically low 14.0-18.0 [facility] Comment on above: Performed By: #### C BC ####[facility] Yvfmamcdjb19[address] [place], [place] [address]Dr. Farhat Leal IG # 0.03 10e3/ul Normal 0.00-0.03 [facility] Comment on above: Performed By: #### C BC ####[facility] Wyrsbieljt7791 [place] [address]Dr. Madelynlorri Leal IG % 0.4 % Normal 0.0-0.5 [facility] Comment on above: Performed By: #### C BC ####[facility] Rrsrrzigmq9123 [place] [address]Dr. Farhat Elvis LYMPH # 2.4 103/ul Normal 1.2-3.8 [facility] Comment on above: Performed By: #### C BC ####[facility] Slowplqknu4827[address] [place], [place] [address]Dr. Madelynlorri Leal Lymphocytes/100 WBC (Bld) 36.1 % Normal 20.5-60.0 [facility] Comment on above: Performed By: #### C BC ####[facility] Ftwzuwudre[address] [place], [place] [address]Dr. Farhat Leal MANUAL DIFF REQ NO Normal [facility] Comment on above: Performed By: #### C BC ####[facility] Nvshojisjf4048 [place] [address]Dr. Farhat Elvis MCH (RBC) [Entitic mass] 30.3 pg Normal 25.9-34.0 [facility] Comment on above: Performed By: #### C BC ####[facility] Mjaidgdrfk9257 [place] [address]Dr. Farhat Elvis MCHC (RBC) [Mass/Vol] 34.2 g/dL Normal 29.9-35.2 [facility] Comment on above: Performed By: #### C BC ####[facility] Dxkzysbmyl57[address] [place], [place] [address]Dr. Farhat Elvis MCV (RBC) [Entitic vol] 88.6 fL Normal 80.0-94.0 [facility] Comment on above: Performed By: #### C BC ####[facility] [address]dslwocxbp17[address] [place], [place] [address]Dr. Farhat Leal MONO # 0.7 103/ul Normal 0.3-0.8 [facility] Comment on above: Performed By: #### C BC ####[facility] Ulqpcbjrhh2132 [place] [id number]. Farhat Leal Monocytes/100 WBC (Bld) 10.1 % Normal 1.7-12.0 [facility] Comment on above: Performed By: #### C BC ####[facility] Mtvdydjnwa4241 [place] [id number]. Farhat Leal NEUT # 3.4 103/ul Normal 1.4-6.5 [facility] Comment on above: Performed By: #### C BC ####[facility] Mlolkjmkfs2072 [place] [id number]. Farhat Leal Neutrophils/100 WBC (Bld) 50.2 % Normal 43.0-75.0 [facility] Comment on above: Performed By: #### C BC ####[facility] Wgsahzbbeo7672 [place] [id number]. Madelynlorri Elvis Platelet mean volume (Bld) [Entitic vol] 11.8 fL Normal 9.5-13.5 [facility] Comment on above: Performed By: #### C BC ####[facility] Aornuhoorf4579 [place] [id number]. Farhat Elvis PLT 193 103/ul Normal 150-450 [facility] Comment on above: Performed By: #### C BC ####[facility] Rjdhjzgyne6488 [place] [id number]. Madelynlorri Leal RBC 4.03 106/ul Critically low 4.70-6.10 [facility] Comment on above: Performed By: #### C BC ####[facility] Vdsrrjytti9835 [place] [id number]. Farhat Leal WBC 6.8 103/ul Normal 4.0-11.0 [facility] Comment on above: Performed By: #### C BC ####[facility] Rpoeiamjnq9255 [place] [address]Dr. Farhat Leal PROF 14(COMP METB)on 023 Albumin [Mass/Vol] 2.9 g/dL Critically low 3.4-5.0 [facility] Comment on above: Performed By: #### C MP ####[facility] Uhgffqgfoo2827 [place] [address]Dr. Farhat Elvis Albumin/Globulin [Mass ratio] 0.9 {ratio} Normal [facility] Comment on above: Performed By: #### C MP ####[facility] [address] [place] [address]Dr. Farhat Leal ALP [Catalytic activity/Vol] 67 U/L Normal 46-116 [facility] Comment on above: Performed By: #### C MP ####[facility] [address] [place], [place] [address]Dr. Farhat Leal ALT [Catalytic activity/Vol] 15 U/L Critically low 16-63 [facility] Comment on above: Performed By: #### C MP ####[facility] R[address]ow[address]spj[address] [place], [place] [address]Dr. Farhat Leal Anion gap [Moles/Vol] 10.8 mmol/L Normal [facility] Comment on above: Performed By: #### C MP ####[facility] [address]ncjgciavv[address] [place], [place] [address]Dr. Farhat Leal AST [Catalytic activity/Vol] 23 U/L Normal 15-37 [facility] Comment on above: Performed By: #### C MP ####[facility] Lbwtkhudhk[address] [place], [place] [address]Dr. Farhat Leal Bilirubin [Mass/Vol] 0.6 mg/dL Normal 0.2-1.0 [facility] Comment on above: Performed By: #### C MP ####[facility] Xvquiekpsa[address] [place], [place] [address]Dr. Farhat Leal Calcium [Mass/Vol] 8.7 mg/dL Normal 8.5-10.1 [facility] Comment on above: Performed By: #### C MP ####[facility] Ycpncecsus[address] [place], [place] [address]Dr. Farhat Leal Chloride [Moles/Vol] 105 mmol/L Normal 98-107 [facility] Comment on above: Performed By: #### C MP ####[facility] [address]vpdvrxp[address] [place] [id number]. Farhat Leal CO2 [Moles/Vol] 29.5 mmol/L Normal 21.0-32.0 [facility] Comment on above: Performed By: #### C MP ####[facility] [address]xdzrvktzi44[address] [place] [id number]. Farhat Leal Creatinine [Mass/Vol] 1.37 mg/dL Critically high 0.70-1.30 [facility] Comment on above: Performed By: #### C MP ####[facility] Mklpriphjz34[address] [place] [id number]. Farhat Leal EGFR-AF GERMAN >60 Normal >=60 [facility] Comment on above: Performed By: #### C MP ####[facility] Rkwkaenpvt[address] [place] [address]Dr. Farhat Elvis EGFR-NON AF GERMAN 50 mL/min/1.73m2 Critically low >=60 [facility] Comment on above: Performed By: #### C MP ####[facility] Oeeirtknsy[address] [place] [id number]. Farhat Leal Globulin (S) [Mass/Vol] 3.1 g/dL Normal [facility] Comment on above: Performed By: #### C MP ####[facility] [address]njccggn[address] [place] [address]Dr. Farhat Leal Glucose [Mass/Vol] 203 mg/dL Critically high 74-106 [facility] Comment on above: Performed By: #### C MP ####[facility] Bpq[address]ruu[address] [place] [id number]. Farhat Leal Potassium [Moles/Vol] 4.3 mmol/L Normal 3.5-5.1 [facility] Comment on above: Performed By: #### C MP ####[facility] Elbyzmgmmb[address] [place] [address]Dr. Farhat Leal Protein [Mass/Vol] 6.0 g/dL Critically low 6.4-8.2 Th [facility] Comment on above: Performed By: #### C MP ####[facility] [address]tf[address]ailvun[address] [place] [id number]. Farhat Leal Sodium [Moles/Vol] 141 mmol/L Normal 136-145 [facility] Comment on above: Performed By: #### C MP ####[facility] Gimcctaqyq[address] [place] [id number]. Farhat Leal Urea nitrogen [Mass/Vol] 65.0 mg/dL Critically high 7.0-18.0 [facility] Comment on above: Performed By: #### C MP ####[facility] [address]werdbkrl[address] [place] [address]Dr. Farhat Leal Urea nitrogen/Creatinine [Mass ratio] 47.4 mg/mg Normal [facility] Comment on above: Performed By: #### C MP ####[facility] Y[address]llunpf[address] [place] [address]Dr. Farhat Leal PROTIMEon 04-15-2022 INR Coag (PPP) [Relative time] 3.88 {INR} Normal [facility] Comment on above: Performed By: #### P T ####[facility] [address]vbwrdta[address] [place] [address]Dr. Farhat Leal INR GUIDELINES SEE BELOW Normal [facility] Comment on above: Result Comment: MALINA RED INR: 2.0 - 3.0 CONDITIONS NOT LISTED BELOW 2.5 - 3.5 FOR PROSTHETIC HEART VALVE REPLACEMENT 2.5 - 3.5 RECURRENT THROMBOSIS Performed By: #### P T ####[facility] [address] [place], [place] [address]Dr. Farhat Leal PT Coag (PPP) [Time] 38.1 s Critically high 9.0-11.6 [facility] Comment on above: Performed By: #### P T ####[facility] Eynhnizzys[address] [place], [place] [address]Dr. Farhat Leal Glucose Glucometer (BldC) [M ass/Vol]Ordered By: Sadia Aguilar on 04-14-2022 Glucose [Mass/Vol] 162 mg/dL [facility] Comment on above: Random Glucose Refer ence Range is dependent on time and content of last meal. Glucose of more than 200 mg/dL in a nonstressed, ambulatory subject supports the diagnosis of Diabetes Mellitus. Glucose Poct Glucometerson 0 04-14-2022 Commemt1 Glu2: Cleaned Meter Normal [facility] Comment on above: Result Comment: PERF ORMED BY: [facility] [place] [address] PATHOLOGIST COMPUTER OPERATIONS SUPERVISOR JOSE F ELLIOTT M.D. Performed By: #### G LULS #### Point of Care testing , Glucose [Mass/Vol] 162 mg/dL Normal [facility] Comment on above: Result Comment: [place] Glucose Reference Range is dependent on time and content of last meal. Glucose of more than 200 mg/dL in a nonstressed, ambulatory subject supports the diagnosis of Diabetes Mellitus. Performed By: #### G LURICO #### Point of Care testing , No Panel InformationOrdered By: Sadia Aguilar on 04-14-2022 Bedside Glucose Comment Glu2: cleaned meter [facility] MAGNESIUMon 04-13-2022 Magnesium [Mass/Vol] 1.7 mg/dL Critically low 1.8-2.4 [facility] Comment on above: Performed By: #### M HENRI Manzo ####[facility] [address]ev[address] [place] [address]Dr. Farhat Leal PHOSPHORUSon 04-13-2022 Phosphate [Mass/Vol] 4.8 mg/dL Critically high 2.6-4.7 [facility] Comment on above: Performed By: #### M HENRI Manzo ####[facility] K[address] [place] [address]Dr. Farhat Leal PROTIMEon 04-13-2022 INR Coag (PPP) [Relative time] 3.16 {INR} Normal [facility] Comment on above: Performed By: #### P T ####[facility] [address]eh[address]ksr[address] [place] [address]Dr. Farhat Leal INR GUIDELINES SEE BELOW Normal [facility] Comment on above: Result Comment: MALINA RED INR: 2.0 - 3.0 CONDITIONS NOT LISTED BELOW 2.5 - 3.5 FOR PROSTHETIC HEART VALVE REPLACEMENT 2.5 - 3.5 RECURRENT THROMBOSIS Performed By: #### P T ####[facility] [address]axa[address] [place] [address]Dr. Farhat Leal PT Coag (PPP) [Time] 31.4 s Critically high 9.0-11.6 [facility] Comment on above: Performed By: #### P T ####[facility] Vabcynnphc[address] [place] [address]Dr. Farhat Leal MAGNESIUMon 03-11-2022 Magnesium [Mass/Vol] 1.6 mg/dL Critically low 1.8-2.4 [facility] Comment on above: Performed By: #### M HENRI Manzo ####[facility] [address]swlq[address] [place] [address]Dr. Farhat Leal PHOSPHORUSon 03-11-2022 Phosphate [Mass/Vol] 5.3 mg/dL Critically high 2.6-4.7 [facility] Comment on above: Performed By: #### M ANA ManzoS ####[facility] Mfmxoucdru[address] [place], [place] [address]Dr. 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 Patient on mycophenolate mofetil , cellcept and prednisone Mixed hyperlipidemia due to type 2 diabetes mellitus ([facility]) 11/29/2021 Osteomyelitis ([facility]) 11/29/2021 Paroxysmal atrial fibrillation ([facility]) Renal transplant, status post SA node dysfunction ([facility]) s/p pacemaker Type 2 diabetes mellitus with diabetic neuropathy, with long-term current use of insulin ([facility]) 02/24/2002 PAST SURGICAL HISTORY Procedure Laterality [...] by mouth daily with lunch. [employer] [place] with lunch aspirin, enteric coated (ASPIRIN, ENTERIC COATED) 81 mg EC tablet Take 1 tablet by (more content not included)... Normal [facility] Walter PROTIMEon 02-25-2022 INR Coag (PPP) [Relative time] 1.31 {INR} Normal [facility] Comment on above: Performed By: #### P T ####[facility] [address]wt[address] [place] [id number]. Farhat Leal INR GUIDELINES SEE BELOW Normal [facility] Comment on above: Result Comment: MALINA RED INR: 2.0 - 3.0 CONDITIONS NOT LISTED BELOW 2.5 - 3.5 FOR PROSTHETIC HEART VALVE REPLACEMENT 2.5 - 3.5 RECURRENT THROMBOSIS Performed By: #### P T ####[facility] [address]gsxq[address] [place] [address]DrSkylar Leal PT Coag (PPP) [Time] 13.7 s Critically high 9.0-11.6 [facility] Comment on above: Performed By: #### P T ####[facility] [address] [place] [address]DrSkylar Leal CNPNon 02-19-2022 CNPN Telephone (TXCTGL) ALEX ALMONTE ([id number]) 1945 M TRN Date Time Provider Department 02/19/22 AUGUSTA MEDRANO TXCTGL During your visit today, we recorded the following information about you: Augusta Medrano RN 02/19/2022 11:16 AM Signed Alex [facility]te's [facility], called regarding elevated tacrolimus level [...] by mouth daily with lunch. 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 DIABETES UNCOMPL ADULT-UNCONTRLLED [[id number]] 02/24/2002 KIDNEY TRANSPLANT STATUS [Z94.0] 09/07/2003 PROPHYLACTIC IMMUNOTHERAPY [Z29.8] 07/30/2006 DIGITAL CONTENT COORDINATOR STEROIDS [[id number]] 07/30/2006 VITAMIN D DEFICIENCY NOS [E55.9] 09/07/2008 [...] diabetes mellitus with diabetic peripher*11/29/2021 Atherosclerosis of [place] artery of extremity w*11/29/2021 Malnutrition of moderate degree (HCC) [E44.0] 12/01/2021 Dermatitis associated with moisture [L30.8] 12/04/2021 Encounter Status:Closed by AUGUSTA MEDRANO on 02/19/22 [facility] Sonya 02-18-2022 CNPN Telephone (PODCCP) ALEX ALMONTE ([id number]) 1945 M [facility] Date Time Provider Department 02/18/22 DEVON MOREIRA PODCCP During your visit today, we recorded the following information about you: Yumiko Camelia 02/18/2022 3:16 PM Signed Reason for call: Mr. Almonte would like to request a sooner appointment with Dr. Peterson than 04/13/2022. Contact Name (if not the patient) Alex's nurse Home and cell number(Ask for Alex's nurse) [phone] Diagnosis 4 mo f/u wound check Best [...] by mouth daily with lunch. 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 DIABETES UNCOMPL ADULT-UNCONTRLLED [[id number]] 02/24/2002 KIDNEY TRANSPLANT STATUS [Z94.0] 09/07/2003 PROPHYLACTIC IMMUNOTHERAPY [Z29.8] 07/30/2006 DIGITAL CONTENT COORDINATOR STEROIDS [[id number]] 07/30/2006 VITAMIN D DEFICIENCY NOS [E55.9] 09/07/2008 [...] diabetes mellitus with diabetic peripher*11/29/2021 Atherosclerosis of [place] artery of extremity w*11/29/2021 Malnutrition of moderate degree (HCC) [E44.0] 12/01/2021 Dermatitis associated with moisture [L30.8] 12/04/2021 Encounter Status:Closed by CHEASTY (more content not included)... Normal [facility] CNOVon 02-05-2022 CNOV Office Visit (TXCTGL ) ALEX ALMONTE ([id number]) 1945 M TRN Date Time Provider Department 02/05/22 8:20 AM KIDNEY TXP CLINIC TXCTGL During your visit today, we recorded the following information about you: Temperature Pulse Blood pressure 96.7 degrees 79/minute 72/42 Asia Pike MD 02/05/2022 9:38 AM Signed [facility] Transplant Follow up Portions of this note were copied from the last encounter. Changes were made to appropriately reflect updated history and interval events, physical exam, data review, and medical decision making. Patient presents for renal tx follow up care - Hospital admission / discharge in November 2021 for osteomyelitis HPI: [place] is a 76 yr old male, s/p [...] and snacks patient declined. Indra scale at [facility]: 166.2 lbs per patient. Bed sore on coccyx causing discomfort. Being changed regularly at SNF- reported to be smaller around but still as deep. Patient not very up to date with medications. Patient brought paperwork from [facility] with all medications being received. Patient unsure if they have been drawing labs regularly. Last Tac from 01/19: 12.9 and K 5.9. In need of current labs. Lab orders will be sent with patient and follows as below: Kidney and Pancreas Transplant Standing Lab Orders [address] [facility] [address] [place], [place] [address] February 05, 2022 Alex Almonte 1945 [id number] STANDARD TESTING: Diagnosis Codes: Z94.0 Kidney Transplant [...] AT YOUR LABORATORY FACILITY AND FAX TO [phone]. PLEASE CALL [phone]. Provider: Dr. Pike Current Outpatient Medications Medication [...] Take 237 (more content not included)... Normal [facility] PROTEIN CREATININE RATIOon 1 04-08-2021 Protein/Creatinine (U) [Mass ratio] 0.10 mg/mg <0.15 mg/mg [facility] PROTIMEon 02-05-2022 INR Coag (PPP) [Relative time] 2.90 {INR} Normal [facility] Comment on above: Performed By: #### P T ####[facility] [address]qmxjor[address] [place] [id number]. Farhat Leal INR GUIDELINES SEE BELOW Normal [facility] Comment on above: Result Comment: MALINA RED INR: 2.0 - 3.0 CONDITIONS NOT LISTED BELOW 2.5 - 3.5 FOR PROSTHETIC HEART VALVE REPLACEMENT 2.5 - 3.5 RECURRENT THROMBOSIS Performed By: #### P T ####[facility] [address] [place] [id number]. Farhat Leal PT Coag (PPP) [Time] 29.2 s Critically high 9.0-11.6 [facility] Comment on above: Performed By: #### P T ####[facility] Gxfd[address]vqmb[address] [place] [address]Dr. Farhat Leal Prot/Creat Uron 02-05-2022 Protein/Creatinine (U) [Mass ratio] 0.10 mg/mg Normal <0.15 [facility] Comment on above: Order Comment: Speci men Type: URINE SPECIMENOrdering Facility: [facility] Address: [address] [place] [address] Result Comment: Adul t Proteinuria Categories: <0.15 mg/mg is considered normal to mildly increased 0.15 - 0.50 mg/mg is considered moderately increased >0.50 mg/mg is considered severely increased KDIGO. (2013). KDIGO 2012 Clinical Practice Guideline for the Evaluation and Management of Chronic Kidney Disease. Official Journal of the International Society of Nephrology, 3(1), 1-150. Performed By: #### 2 890-2 ####[facility] LABCLIA [id number] [place] [address] [place] Protein/Creatinine (U) [Mass ratio]on 02-05-2022 Creatinine (U) [Mass/Vol] 86.9 mg/dL 20.0 - 300.0 mg/dL [facility] Protein (U) [Mass/Vol] 9 mg/dL 0 - 20 mg/dL [facility] Creatinine (U) [Mass/Vol] 86.9 mg/dL Normal 20.0-300.0 [facility] Comment on above: Order Comment: Speci men Type: URINE SPECIMENOrdering Facility: [facility] Address: [address] Performed By: #### 2 890-2 ####[facility] LABCLIA [id number] [place] [address] [place] Protein (U) [Mass/Vol] 9 mg/dL Normal 0-20 [facility] Comment on above: Order Comment: Speci men Type: URINE SPECIMENOrdering Facility: [facility] Address: [address] [place] [place] [address] Performed By: #### 2 890-2 ####[facility] LABCLIA [id number] [place] [address] [place] URINALYSIS, DIPSTICK ONLYon 02-05-2022 Bilirubin Ql (U) Negative Normal Negative [facility] Comment on above: Order Comment: Speci men Type: URINE SPECIMEN [facility] Address: [address] Performed By: #### U A #### [facility] CLIA [id number] [address] [place] [address] [place] Clarity (Unsp spec) Clear Normal Clear [facility] Comment on above: Order Comment: Speci men Type: URINE SPECIMEN [facility] Address: [address] Performed By: #### U A #### [facility] CLIA [id number] [address] [place] [address] [place] Color (U) Yellow Normal Yellow [facility] Comment on above: Order Comment: Speci men Type: URINE SPECIMEN [facility] Address: [address] Performed By: #### U A #### [facility] CLIA [id number] [address] [place] Glucose Test strip (U) [Mass/Vol] 3+ Abnormal Trace, Negative [facility] Comment on above: Order Comment: Speci men Type: URINE SPECIMEN [facility] Address: [address] [place] [place] [address] Performed By: #### U A #### [facility] CLIA [id number] [address] STATES OF [facility] Hemoglobin Ql (U) Negative Normal Negative, Trace [facility] Comment on above: Order Comment: Speci men Type: URINE SPECIMEN [facility] Address: [address] [place] [place] [address] Performed By: #### U A #### [facility] CLIA [id number] [address] [place] Ketones Ql (U) Trace Normal Negative, Trace [facility] Comment on above: Order Comment: Speci men Type: URINE SPECIMEN [facility] Address: [address] [place] [place] [address] Performed By: #### U A #### [facility] CLIA [id number] [address] Leukocyte esterase Test strip Ql (U) Negative Normal Negative, 25 Loraine/mL [facility] Comment on above: Order Comment: Speci men Type: URINE SPECIMEN [facility] Address: [address] Performed By: #### U A #### [facility] CLIA [id number] [address] [place] [address] [place] Nitrite Ql (U) Negative Normal Negative [facility] Comment on above: Order Comment: Speci men Type: URINE SPECIMEN [facility] Address: [address] Performed By: #### U A #### [facility] CLIA [id number] [facility] [place] [address] [place] pH (U) 5.5 [pH] Normal 5.0-8.0 [facility] Comment on above: Order Comment: Speci men Type: URINE SPECIMEN [facility] Address: [address] [place] [address] Performed By: #### U A #### [facility] CLIA [id number] [address] [place] [address] [place] Protein (U) [Mass/Vol] Negative Normal Trace , Negative [facility] Comment on above: Order Comment: Speci men Type: URINE SPECIMEN [facility] Address: [address] [place] [address] Performed By: #### U A #### [facility] [place] [id number] [address] [place] [address] [place] Specific gravity (U) [Rel density] 1.014 Normal 1.005-1.030 [facility] Comment on above: Order Comment: Speci men Type: URINE SPECIMEN [facility] Address: [address] [place] [address] Performed By: #### U A #### [facility] [place] [id number] [address] [place] [address] [place] Urobilinogen Ql (U) 1+ Abnormal Negative [facility] Comment on above: Order Comment: Speci men Type: URINE SPECIMEN [facility] Address: [address] [place] [address] Performed By: #### U A #### [facility] [place] [id number] [address] [place] [address] [place] Bilirubin Ql (U) Negative Negative [facility] Clarity (Unsp spec) Clear Clear [facility] Color (U) Yellow Yellow [facility] Glucose Test strip (U) [Mass/Vol] 3+ Abnormal Trace, Negative [facility] Hemoglobin Ql (U) Negative Negative, Trace [facility] Ketones Ql (U) Trace Negative, Trace [facility] Leukocyte esterase Test strip Ql (U) Negative Negative, 25 Loraine/mL [facility] Nitrite Ql (U) Negative Negative [facility] pH (U) 5.5 [pH] 5.0 - 8.0 [facility] Protein (U) [Mass/Vol] Negative Trace , Negative [facility] Specific gravity (U) [Rel density] 1.014 1.005 - 1.030 [facility] Urobilinogen Ql (U) 1+ Abnormal Negative [facility] FK506 (TACROLIMUS) WHOLE BLO ODon 01-29-2022 Tacrolimus (FK506), Blood 11.1 ng/mL Normal 2.0-20.0 [facility] Comment on above: Result Comment: Trou gh (immediately following transplant) 15.0 . Trough (steady state, 2 weeks or more after transplant): 3.0 - 8.0 . Performed by LC-MS/MS technology. Performed By: #### F K506T ####[facility] [address] [place], [place] [address]Dr. Farhat Leal PHOSPHORUSon 01-26-2022 Phosphate [Mass/Vol] 4.1 mg/dL Normal 2.6-4.7 [facility] Comment on above: Performed By: #### C CARA, PHOS ####[facility] [address] [place] [address]DrSkylar Leal PROF 14(COMP METB)on 022 Albumin [Mass/Vol] 2.1 g/dL Critically low 3.4-5.0 [facility] Comment on above: Performed By: #### C CARA, PHOS ####[facility] [address] [place] [address]Dr. Farhat Leal Albumin/Globulin [Mass ratio] 0.6 {ratio} Normal [facility] Comment on above: Performed By: #### C CARA, PHOS ####[facility] [address] [place] [address]Dr. Farhat Leal ALP [Catalytic activity/Vol] 89 U/L Normal 46-116 [facility] Comment on above: Performed By: #### C CARA, PHOS ####[facility] [address] [place], [place] [address]Dr. Farhat Leal ALT [Catalytic activity/Vol] 27 U/L Normal 16-63 [facility] Comment on above: Performed By: #### C CARA, PHOS ####[facility] [address] [place], [place] [address]Dr. Farhat Leal Anion gap [Moles/Vol] 12.3 mmol/L Normal [facility] Comment on above: Performed By: #### C MP, PHOS ####[facility] [address]pr[address] [place], [place] [address]Dr. Farhat Elvis AST [Catalytic activity/Vol] 53 U/L Critically high 15-37 [facility] Comment on above: Performed By: #### C CARA, PHOS ####[facility] [address] [place], [place] [address]Dr. Farhat Leal Bilirubin [Mass/Vol] 0.6 mg/dL Normal 0.2-1.0 [facility] Comment on above: Performed By: #### C CARA, PHOS ####[facility] [address] [place], [place] [address]Dr. Farhat Elvis Calcium [Mass/Vol] 8.0 mg/dL Critically low 8.5-10.1 [facility] Comment on above: Performed By: #### C CARA, PHOS ####[facility] [address] [place], [place] [address]Dr. Farhat Leal Chloride [Moles/Vol] 97 mmol/L Critically low 98-107 [facility] Comment on above: Performed By: #### C MP, PHOS ####[facility] [address] [place], [place] [address]Dr. Farhat Leal CO2 [Moles/Vol] 26.6 mmol/L Normal 21.0-32.0 [facility] Comment on above: Performed By: #### C CARA, PHOS ####[facility] Vxdkqinuar[address] [place], [place] [address]Dr. Farhat Leal Creatinine [Mass/Vol] 1.03 mg/dL Normal 0.70-1.30 [facility] Comment on above: Performed By: #### C CARA, PHOS ####[facility] [address]cy[address] [place] [address]Dr. Farhat Leal EGFR-AF GERMAN >60 Normal >=60 [facility] Comment on above: Performed By: #### C MP, PHOS ####[facility] Lkixrilrpq99[address] [place] [address]Dr. Farhat Leal EGFR-NON AF GERMAN >60 Normal >=60 [facility] Comment on above: Performed By: #### C CARA, PHOS ####[facility] Duikgiivxy[address] [place], [place] [address]Dr. Farhat Leal Globulin (S) [Mass/Vol] 3.7 g/dL Normal [facility] Comment on above: Performed By: #### C CARA, PHOS ####[facility] Pkzmwhswri[address] [place], [place] [address]Dr. Farhat eLal Glucose [Mass/Vol] 287 mg/dL Critically high 74-106 T [facility] Comment on above: Performed By: #### C CARA, PHOS ####[facility] Jydpxbmevt544[address] [place], [place] [address]Dr. Farhat Leal Potassium [Moles/Vol] 3.9 mmol/L Normal 3.5-5.1 [facility] Comment on above: Performed By: #### C CARA, PHOS ####[facility] Hnpojlpats[address] [place], [place] [address]Dr. Farhat Leal Protein [Mass/Vol] 5.8 g/dL Critically low 6.4-8.2 Th [facility] Comment on above: Performed By: #### C CARA, PHOS ####[facility] Nplxffrgiw[address] [place], [place] [address]Dr. Farhat Leal Sodium [Moles/Vol] 132 mmol/L Critically low 136-145 Th [facility] Comment on above: Performed By: #### C CARA, PHOS ####[facility] Qfsrmjtaov[address] [place], [place] [address]Dr. Farhat Leal Urea nitrogen [Mass/Vol] 23.0 mg/dL Critically high 7.0-18.0 [facility] Comment on above: Performed By: #### C HENRI MARROQUIN ####[facility] [address]cf[address] [place] [address]Dr. Farhat Leal Urea nitrogen/Creatinine [Mass ratio] 22.3 mg/mg Normal [facility] Comment on above: Performed By: #### C HENRI MARROQUIN ####[facility] [address]japmqw[address] [place] [address]Dr. Farhat Leal FK506 (TACROLIMUS) WHOLE BLO ODon 01-21-2022 Tacrolimus (FK506), Blood 12.2 ng/mL Normal 2.0-20.0 [facility] Comment on above: Result Comment: Trou gh (immediately following transplant) 15.0 . Trough (steady state, 2 weeks or more after transplant): 3.0 - 8.0 . Performed by LC-MS/MS technology. Performed By: #### F K506T ####[facility] Slthlfpbua[address] [place], [place] [address]Dr. Farhat Leal ACID FAST SMEAR AND CXon Acid Fast Culture Negative Normal [facility] Comment on above: Result Comment: No a abdiel fast bacilli isolated after 6 weeks. Performed By: #### A FB ####[facility] Rbnijtdyuj[address] [place], [place] [address]Dr. Farhat Leal Acid Fast Smear Negative Normal [facility] Comment on above: Performed By: #### A FB ####[facility] Teelzlyfvq[address] [place], [place] [address]Dr. Farhat Leal [employer] Specimen Processing Tissue Grinding Normal [facility] Comment on above: Performed By: #### A FB ####[facility] Gjejunhgie[address] [place], [place] [address]Dr. Farhat Hassan [facility] ALEX ALMONTE ([id number]) 1945 M TRN Date Time Provider Department [...] by mouth daily with lunch. 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 Atherosclerosis of [place] artery of extremity w*11/29/2021 Malnutrition of moderate degree (HCC) [E44.0] 12/01/2021 Dermatitis associated with moisture [L30.8] 12/04/2021 Encounter Status:Closed by VAN OLIVAREZ on 01/20/22 [facility](COMP METB)on 022 Albumin [Mass/Vol] 1.9 g/dL Critically low 3.4-5.0 Th [facility] Comment on above: Performed By: #### C MP ####[facility] Vuwtjuwsjb28[address] [place] [address]DrSkylar Leal Albumin/Globulin [Mass ratio] 0.5 {ratio} Normal [facility] Comment on above: Performed By: #### C MP ####[facility] Orvdzauezb[address] [place] [address]DrSkylar Leal ALP [Catalytic activity/Vol] 78 U/L Normal 46-116 [facility] Comment on above: Performed By: #### C MP ####[facility] Tymthmpgvc15[address] [place] [address]DrSkylar Leal ALT [Catalytic activity/Vol] 22 U/L Normal 16-63 [facility] Comment on above: Performed By: #### C MP ####[facility] Udvxilqcet37[address] [place] [address]Dr. Farhat Elvis Anion gap [Moles/Vol] 8.0 mmol/L Normal [facility] Comment on above: Performed By: #### C MP ####[facility] Legsuyrpni69[address] [place] [id number]. Farhat Elvis AST [Catalytic activity/Vol] 92 U/L Critically high 15-37 [facility] Comment on above: Performed By: #### C MP ####[facility] Crnghfstnh8[address] [place], [place] [address]Dr. Farhat Leal Bilirubin [Mass/Vol] 0.7 mg/dL Normal 0.2-1.0 [facility] Comment on above: Performed By: #### C MP ####[facility] Gonjssszsi[address] [place], [place] [address]Dr. Farhat Leal Calcium [Mass/Vol] 7.8 mg/dL Critically low 8.5-10.1 Th [facility] Comment on above: Performed By: #### C MP ####[facility] Wghniaqcni425[address] [place], [place] [address]Dr. Farhat Leal Chloride [Moles/Vol] 99 mmol/L Normal 98-107 [facility] Comment on above: Performed By: #### C MP ####[facility] Hjuqlfsmza85[address] [place], [place] [address]Dr. Farhat Leal CO2 [Moles/Vol] 30.9 mmol/L Normal 21.0-32.0 [facility] Comment on above: Performed By: #### C MP ####[facility] Umnkakhgzp62[address] [place], [place] [address]Dr. Farhat Leal Creatinine [Mass/Vol] 0.95 mg/dL Normal 0.70-1.30 [facility] Comment on above: Performed By: #### C MP ####[facility] Rpktpnznam40[address] [place], [place] [address]Dr. Farhat Leal EGFR-AF GERMAN >60 Normal >=60 [facility] Comment on above: Performed By: #### C MP ####[facility] Ocxrzvsjoq40[address] [place] [id number]. Farhat Leal EGFR-NON AF GERMAN >60 Normal >=60 [facility] Comment on above: Performed By: #### C MP ####[facility] Gojfyeeyao4[address] [place] [id number]. Farhat Leal Globulin (S) [Mass/Vol] 3.9 g/dL Normal [facility] Comment on above: Performed By: #### C MP ####[facility] Xinekbqdbg0439 [place] [id number]. Farhat Leal Glucose [Mass/Vol] 124 mg/dL Critically high 74-106 T [facility] Comment on above: Performed By: #### C MP ####[facility] Hiwffvlzpv4276 [place] [id number]. Farhat Leal Potassium [Moles/Vol] 5.9 mmol/L Critically high 3.5-5.1 [facility] Comment on above: Performed By: #### C MP ####[facility] Crjxyisqpn025[address] [place] [id number]. Farhat Leal Protein [Mass/Vol] 5.8 g/dL Critically low 6.4-8.2 Th [facility] Comment on above: Performed By: #### C MP ####[facility] Wgtvaceobp7[address] [place] [address]Dr. Farhat Leal Sodium [Moles/Vol] 132 mmol/L Critically low 136-145 Th [facility] Comment on above: Performed By: #### C MP ####[facility] Xfndzgyihc2161 [place] [id number]. Farhat Leal Urea nitrogen [Mass/Vol] 18.0 mg/dL Normal 7.0-18.0 [facility] Comment on above: Performed By: #### C MP ####[facility] Khrkxsfkdi7[address] [place] [id number]. Farhat Elvis Urea nitrogen/Creatinine [Mass ratio] 18.9 mg/mg Normal [facility] Comment on above: Performed By: #### C MP ####[facility] Odsdhqqahi5[address] [place] [phone]. Farhat Leal INR (POC)on 01-12-2022 INR Coag (PPP) [Relative time] 2.6 {INR} High 0.8 - 1.2 [facility] Internal Quality Check Acceptable Cl [facility] ACID FAST SMEAR AND CXon Acid Fast Culture Negative Normal [facility] Comment on above: Result Comment: No a abdiel fast bacilli isolated after 6 weeks. Performed By: #### A FB ####[facility] Dyxudsjoir[address] [place], [place] [address]Dr. Farhat Leal Acid Fast Smear Negative Normal [facility] Comment on above: Performed By: #### A FB ####[facility] Immrtubvym[address] [place], [place] [address]Dr. Farhat Leal [employer] Specimen Processing Direct Inoculation Normal [facility] Comment on above: Performed By: #### A FB ####[facility] Lotsvgdnkt[address] [place], [place] [address]Dr. Farhat Leal ACID FAST SMEAR AND CXon Acid Fast Culture Negative Normal [facility] Comment on above: Result Comment: No a abdiel fast bacilli isolated after 6 weeks. Performed By: #### A FB ####[facility] [address] [place], [place] [address]Dr. Farhat Leal Acid Fast Smear Negative Normal [facility] Comment on above: Performed By: #### A FB ####[facility] Xpilszqgze06[address] [place], [place] [address]Dr. Farhat Leal [employer] Specimen Processing Tissue Grinding Normal [facility] Comment on above: Performed By: #### A FB ####[facility] Lujpcpwoaf247[address] [place], [place] [address]Dr. Farhat Leal FUNGAL CULTUREon 01-02-2022 Fungus (Mycology) Culture Final report Normal [facility] Comment on above: Performed By: #### C XFUN ####[facility] Hvsvlocrxo[address] [place], [place] [address]Dr. Farhat Leal Fungus Stain Final report Normal [facility] Comment on above: Performed By: #### C XFUN ####[facility] [address] [place] [address]. Farhat Leal Result 1 Comment Normal [facility] Comment on above: Result Comment: ANNI/ Calcofluor preparation: no fungus observed. Performed By: #### C XFUN ####[facility] [address] [place] [address]. Farhat Leal Result Comment: No y east or mold isolated after 4 weeks. FK506 (TACROLIMUS) WHOLE BLO ODon 12-31-2021 Tacrolimus (FK506), Blood 7.7 ng/mL Normal 2.0-20.0 [facility] Comment on above: Result Comment: Trou gh (immediately following transplant) 15.0 . Trough (steady state, 2 weeks or more after transplant): 3.0 - 8.0 . Performed by LC-MS/MS technology. Performed By: #### F K506T ####[facility] [address] [place] [address]. Farhat Leal HEMOGRAM AND PLATELon 2021 Hematocrit (Bld) [Volume fraction] 27.1 % Critically low 42.0-54.0 [facility] Comment on above: Performed By: #### H H ####[facility] W[address]zrt[address] [place] [address]. Farhat Leal Hemoglobin (Bld) [Mass/Vol] 8.7 g/dL Critically low 14.0-18.0 [facility] Comment on above: Performed By: #### H H ####[facility] [address] [place] [address]. Farhat Leal MCH (RBC) [Entitic mass] 30.3 pg Normal 25.9-34.0 [facility] Comment on above: Performed By: #### H H ####[facility] B[address]keblyorw[address] [place] [address]. Farhat Leal MCHC (RBC) [Mass/Vol] 32.1 g/dL Normal 29.9-35.2 [facility] Comment on above: Performed By: #### H H ####[facility] Pusqpngegd[address] [place] [id number]. Farhat Leal MCV (RBC) [Entitic vol] 94.4 fL Critically high 80.0-94.0 [facility] Comment on above: Performed By: #### H H ####[facility] Ohbbrnuoyg8207 [place] [address]Dr. Farhat Leal PLT 355 103/ul Normal 150-450 [facility] Comment on above: Performed By: #### H H ####[facility] Xupncdueee5833 [place] [id number]. Farhat Leal RBC 2.87 106/ul Critically low 4.70-6.10 [facility] Comment on above: Performed By: #### H H ####[facility] Gwpowivlym8076 [place] [address]Dr. Farhat Elvis WBC 6.0 103/ul Normal 4.0-11.0 [facility] Comment on above: Performed By: #### H H ####[facility] Guuryzqses[address] [place] [address]Dr. Farhat Elvis PHOSPHORUSon 12-29-2021 Phosphate [Mass/Vol] 2.5 mg/dL Critically low 2.6-4.7 [facility] Comment on above: Performed By: #### P HOS, CMP ####[facility] Wxhuklhqie[address] [place], [place] [address]Dr. Madelynlorri Leal PROF 14(COMP METB)on 022 Albumin [Mass/Vol] 1.7 g/dL Critically low 3.4-5.0 [facility] Comment on above: Performed By: #### P HOS, CMP ####[facility] Jqsthzomio[address] [place], [place] [address]Dr. Farhat Elvis Albumin/Globulin [Mass ratio] 0.5 {ratio} Normal [facility] Comment on above: Performed By: #### P HOS, CMP ####[facility] Qivjddsbyi364[address] [place] [address]Dr. Farhat Leal ALP [Catalytic activity/Vol] 78 U/L Normal 46-116 [facility] Comment on above: Performed By: #### P HOS, CMP ####[facility] Gfennytlmv[address] [place], [place] [address]Dr. Farhat Leal ALT [Catalytic activity/Vol] 12 U/L Critically low 16-63 [facility] Comment on above: Performed By: #### P HOS, CMP ####[facility] Ipdequrmrr[address] [place], [place] [address]Dr. Farhat Leal Anion gap [Moles/Vol] 5.1 mmol/L Normal [facility] Comment on above: Performed By: #### P HOS, CMP ####[facility] Lcwuoghoex12[address] [place], [place] [address]Dr. Farhat Leal AST [Catalytic activity/Vol] 22 U/L Normal 15-37 [facility] Comment on above: Performed By: #### P HOS, CMP ####[facility] Cqmxuwrnzw18[address] [place], [place] [address]Dr. Farhat Leal Bilirubin [Mass/Vol] 0.6 mg/dL Normal 0.2-1.0 [facility] Comment on above: Performed By: #### P HOS, CMP ####[facility] Fyogflvvcv[address] [place], [place] [address]Dr. Farhat Leal Calcium [Mass/Vol] 8.1 mg/dL Critically low 8.5-10.1 Th [facility] Comment on above: Performed By: #### P HOS, CMP ####[facility] Lvukglftqr[address] [place], [place] [address]Dr. Farhat Leal Chloride [Moles/Vol] 100 mmol/L Normal 98-107 [facility] Comment on above: Performed By: #### P HOS, CMP ####[facility] Ojuqxqbnnq76[address] [place], [place] [address]Dr. Farhat Leal CO2 [Moles/Vol] 34.2 mmol/L Critically high 21.0-32.0 [facility] Comment on above: Performed By: #### P HOS, CMP ####[facility] Toxgvrlocy[address] [place], [place] [address]Dr. Farhat Elvis Creatinine [Mass/Vol] 0.92 mg/dL Normal 0.70-1.30 [facility] Comment on above: Performed By: #### P HOS, CMP ####[facility] Eazjpwicso[address] [place] [address]Dr. Farhat Leal EGFR-AF GERMAN >60 Normal >=60 [facility] Comment on above: Performed By: #### P HOS, CMP ####[facility] Fvdwkicrfa3832 [place] [id number]. Farhat Elvis EGFR-NON AF GERMAN >60 Normal >=60 [facility] Comment on above: Performed By: #### P HOS, CMP ####[facility] Dmgabjgwll[address] [place] [address]Dr. Farhat Leal Globulin (S) [Mass/Vol] 3.3 g/dL Normal [facility] Comment on above: Performed By: #### P HOS, CMP ####[facility] Ggkjnubjxu01[address] [place], [place] [address]Dr. Farhat Leal Glucose [Mass/Vol] 116 mg/dL Critically high 74-106 [facility] Comment on above: Performed By: #### P HOS, CMP ####[facility] Ljxofzking24[address] [place], [place] [address]Dr. Farhat Leal Potassium [Moles/Vol] 3.3 mmol/L Critically low 3.5-5.1 [facility] Comment on above: Performed By: #### P HOS, CMP ####[facility] Jqberewrmv07[address] [place], [place] [address]Dr. Madelynlorri Elvis Protein [Mass/Vol] 5.0 g/dL Critically low 6.4-8.2 Th [facility] Comment on above: Performed By: #### P HOS, CMP ####[facility] Jvdnpetbmk[address] [place], [place] [address]Dr. Farhat Leal Sodium [Moles/Vol] 136 mmol/L Normal 136-145 [facility] Comment on above: Performed By: #### P HOS, CMP ####[facility] Vjzsvmffmf508[address] [place], [place] [address]Dr. Farhat Leal Urea nitrogen [Mass/Vol] 14.0 mg/dL Normal 7.0-18.0 [facility] Comment on above: Performed By: #### P HOS, CMP ####[facility] Hqcjhrdwjm47[address] [place], [place] [address]DrSkylar Leal Urea nitrogen/Creatinine [Mass ratio] 15.2 mg/mg Normal [facility] Comment on above: Performed By: #### P HOS, CMP ####[facility] V[address]qbthtbwv[address] [place], [place] [address]DrSkylar Leal PROTIMEon 12-29-2021 INR Coag (PPP) [Relative time] 1.26 {INR} Normal [facility] Comment on above: Performed By: #### P T ####[facility] Qvthtrvjyh[address] [place], [place] [address]DrSkylar Leal INR GUIDELINES SEE BELOW Normal [facility] Comment on above: Result Comment: MALINA RED INR: 2.0 - 3.0 CONDITIONS NOT LISTED BELOW 2.5 - 3.5 FOR PROSTHETIC HEART VALVE REPLACEMENT 2.5 - 3.5 RECURRENT THROMBOSIS Performed By: #### P T ####[facility] Onzuirbace[address] [place], [place] [address]DrSkylar Leal PT Coag (PPP) [Time] 13.4 s Critically high 9.0-11.6 [facility] Comment on above: Performed By: #### P T ####[facility] [address]vqvbozox[address] [place], [place] [address]DrSkylar Leal XR MODIFIED BARIUM SWALLOWon 12-25-2021 XR MODIFIED BARIUM SWALLOW Normal [facility] FUNGAL CULTUREon 12-24-2021 Fungus (Mycology) Culture Final report Normal [facility] Comment on above: Performed By: #### C XFUN ####[facility] [address]annxjozny[address] [place], [place] [address]DrSkylar Leal Fungus Stain Final report Normal [facility] Comment on above: Performed By: #### C XFUN ####[facility] Xcsacfmjkr[address] [place], [place] [address]DrSkylar Leal Result 1 Comment Normal [facility] Comment on above: Result Comment: ANNI/ Calcofluor preparation: no fungus observed. Performed By: #### C XFUN ####[facility] Lynkrimfjc46[address] [place] [address]Dr. Farhat Leal Result Comment: No y east or mold isolated after 4 weeks. VANCOMYCIN TROUGHon 12-21-19 VANCOMYCIN TROUGH 14.4 ug/ml Normal 5.0-20.0 [facility] Comment on above: Performed By: #### V ANCT ####[facility] Gppuzrugwo[address] [place], [place] [address]Dr. Farhat Leal CBC AUTO DIFFon 12-14-2021 BASO # 0.0 103/ul Normal 0.0-0.1 [facility] Comment on above: Performed By: #### C BC ####[facility] Gugeuyziww92[address] [place], [place] [address]Dr. Madelynlorri Leal Basophils/100 WBC (Bld) 0.2 % Normal 0.2-2.0 [facility] Comment on above: Performed By: #### C BC ####[facility] Mvsfveeohk[address] [place], [place] [address]Dr. Farhat Elvis EO # 0.2 103/ul Normal 0.0-0.7 [facility] Comment on above: Performed By: #### C BC ####[facility] L[address]rlhxrwe[address] [place], [place] [address]Dr. Farhat Elvis Eosinophils/100 WBC (Bld) 2.1 % Normal 0.9-7.0 [facility] Comment on above: Performed By: #### C BC ####[facility] Bqbyekjrsn[address] [place], [place] [address]Dr. Farhat Leal Erythrocyte distribution width (RBC) [Ratio] 18.2 % Critically high 11.0-15.0 [facility] Comment on above: Performed By: #### C BC ####[facility] Nemoebkexl[address] [place], [place] [address]Dr. Farhat Leal Hematocrit (Bld) [Volume fraction] 25.8 % Critically low 42.0-54.0 [facility] Comment on above: Performed By: #### C BC ####[facility] Kpqamljpbq0972 [place] [id number]. Farhat Leal Hemoglobin (Bld) [Mass/Vol] 8.0 g/dL Critically low 14.0-18.0 [facility] Comment on above: Performed By: #### C BC ####[facility] Lsgppuruhq0903 [place] [id number]. Farhat Leal IG # 0.08 10e3/ul Critically high 0.00-0.03 [facility] Comment on above: Performed By: #### C BC ####[facility] Gcfkzgyjcs86[address] [place] [id number]. Farhat Leal IG % 0.7 % Critically high 0.0-0.5 [facility] Comment on above: Performed By: #### C BC ####[facility] Umhizbvvmo[address] [place], [place] [address]Dr. Farhat Leal LYMPH # 0.9 103/ul Critically low 1.2-3.8 [facility] Comment on above: Performed By: #### C BC ####[facility] Imvehjrxvk5096 [place] [address]Dr. Farhat Leal Lymphocytes/100 WBC (Bld) 8.7 % Critically low 20.5-60.0 [facility] Comment on above: Performed By: #### C BC ####[facility] Bvzugequlm29[address] [place] [address]Dr. Farhat Leal MANUAL DIFF REQ NO Normal [facility] Comment on above: Performed By: #### C BC ####[facility] Atuijpjcux[address] [place], [place] [address]Dr. Farhat Leal MCH (RBC) [Entitic mass] 30.0 pg Normal 25.9-34.0 [facility] Comment on above: Performed By: #### C BC ####[facility] Bckgolcjoq[address] [place], [place] [address]Dr. Farhat Leal MCHC (RBC) [Mass/Vol] 31.0 g/dL Normal 29.9-35.2 [facility] Comment on above: Performed By: #### C BC ####[facility] Duaxthsunw68[address] [place] [id number]. Farhat Leal MCV (RBC) [Entitic vol] 96.6 fL Critically high 80.0-94.0 [facility] Comment on above: Performed By: #### C BC ####[facility] Xjrtqoxkrc8099 [place] [id number]. Farhat Leal MONO # 0.7 103/ul Normal 0.3-0.8 [facility] Comment on above: Performed By: #### C BC ####[facility] J[address]zfnvou[address] [place], [place] [address]Dr. Farhat Leal Monocytes/100 WBC (Bld) 6.7 % Normal 1.7-12.0 [facility] Comment on above: Performed By: #### C BC ####[facility] Ghpfcibjel83[address] [place], [place] [address]Dr. Farhat Leal NEUT # 8.8 103/ul Critically high 1.4-6.5 [facility] Comment on above: Performed By: #### C BC ####[facility] Kpujebwite[address] [place], [place] [address]Dr. Farhat Leal Neutrophils/100 WBC (Bld) 81.6 % Critically high 43.0-75.0 [facility] Comment on above: Performed By: #### C BC ####[facility] Vkaegtdsvc[address] [place], [place] [address]Dr. Farhat Leal Platelet mean volume (Bld) [Entitic vol] 10.5 fL Normal 9.5-13.5 [facility] Comment on above: Performed By: #### C BC ####[facility] Pasnkbxhzm8[address] [place], [place] [address]Dr. Farhat Leal PLT 285 103/ul Normal 150-450 [facility] Comment on above: Performed By: #### C BC ####[facility] Fppqqrqwqo[address] [place], [place] [address]Dr. Farhat Leal RBC 2.67 106/ul Critically low 4.70-6.10 [facility] Comment on above: Performed By: #### C BC ####[facility] Lczfivbjjx6940 [place] [id number]. aFrhat Elvis WBC 10.7 103/ul Normal 4.0-11.0 [facility] Comment on above: Performed By: #### C BC ####[facility] Pxgfomfaqf6386 [place] [phone]. Madelynlorri Leal PROF CHEM 8 (BAS METB)on Anion gap [Moles/Vol] 12.4 mmol/L Normal [facility] Comment on above: Performed By: #### B MP ####[facility] Autsdkdezp6417 [place] [address]Dr. Farhat Leal Calcium [Mass/Vol] 7.8 mg/dL Critically low 8.5-10.1 [facility] Comment on above: Performed By: #### B MP ####[facility] [address]bbwglm[address] [place], [place] [address]Dr. Farhat Leal Chloride [Moles/Vol] 102 mmol/L Normal 98-107 [facility] Comment on above: Performed By: #### B MP ####[facility] [address]lkzmqg[address] [place], [place] [address]Dr. Madelynlorri Leal CO2 [Moles/Vol] 28.1 mmol/L Normal 21.0-32.0 [facility] Comment on above: Performed By: #### B MP ####[facility] Cpgdogcpnk[address] [place], [place] [address]Dr. Farhat Leal Creatinine [Mass/Vol] 1.24 mg/dL Normal 0.70-1.30 [facility] Comment on above: Performed By: #### B MP ####[facility] [address] [place] [address]Dr. Farhat Leal EGFR-AF GERMAN >60 Normal >=60 [facility] Comment on above: Performed By: #### B MP ####[facility] Rkqabwrhve5636 [place] [id number]. Farhat Leal EGFR-NON AF GERMAN 57 mL/min/1.73m2 Critically low >=60 [facility] Comment on above: Performed By: #### B MP ####[facility] Cnreqzsftc7[address] [place] [address]Dr. Farhat Leal Glucose [Mass/Vol] 296 mg/dL Critically high 74-106 [facility] Comment on above: Performed By: #### B MP ####[facility] Bcufrzjiep[address] [place] [address]Dr. Farhat Leal Potassium [Moles/Vol] 3.5 mmol/L Normal 3.5-5.1 [facility] Comment on above: Performed By: #### B MP ####[facility] Faikctplva[address] [place], [place] [address]Dr. Farhat Leal Sodium [Moles/Vol] 139 mmol/L Normal 136-145 [facility] Comment on above: Performed By: #### B MP ####[facility] Qjqwctnzss[address] [place], [place] [address]Dr. Farhat Leal Urea nitrogen [Mass/Vol] 27.0 mg/dL Critically high 7.0-18.0 [facility] Comment on above: Performed By: #### B MP ####[facility] Cjitffjaha[address] [place], [place] [address]Dr. Farhat Leal Urea nitrogen/Creatinine [Mass ratio] 21.8 mg/mg Normal [facility] Comment on above: Performed By: #### B MP ####[facility] Gyzgopbfmy[address] [place], [place] [address]Dr. Farhat Leal PROTIMEon 12-14-2021 INR Coag (PPP) [Relative time] 3.36 {INR} Normal [facility] Comment on above: Performed By: #### P T ####[facility] Japhtivdaz[address] [place], [place] [address]Dr. Farhat Leal INR GUIDELINES SEE BELOW Normal [facility] Comment on above: Result Comment: MALINA RED INR: 2.0 - 3.0 CONDITIONS NOT LISTED BELOW 2.5 - 3.5 FOR PROSTHETIC HEART VALVE REPLACEMENT 2.5 - 3.5 RECURRENT THROMBOSIS Performed By: #### P T ####[facility] Ifglhmgmsw[address] [place], [place] [address]DrSkylar Leal PT Coag (PPP) [Time] 33.5 s Critically high 9.0-11.6 [facility] Comment on above: Performed By: #### P T ####[facility] [address]roawx3[address] [place], [place] [address]OsSkylar Joshilorri Elvis XR CHEST 1 Von 12-14-2021 XR CHEST 1 V Normal [facility] No Panel Informationon 12-01 BLANK _ [facility] Implant Date 04/22/2012 [facility] PAC[facility]ER CLINIC CHECKon AMS Duration (ms) 5 of 8 [facility] AMS Fallback Rate (bpm) DDIR [facility] AV Delay Adaptive Paced Minimum (ms) 300 ms [facility] AV Delay Adaptive Rate Maximum (bpm) 130 {beats}/min [facility] AV Delay Adaptive Rate Minimum (bpm) 70 {beats}/min [facility] AV Delay Adaptive Sensed Minimum (ms) 300 ms [facility] AV Delay Paced (ms) 300 ms [facility] AV Delay Sensed (ms) 300 ms [facility] Jaciel LV Pacing Polarity Unknown [facility] Jaciel LV Sensing Polarity Unknown [facility] Jaciel RA Pacing Amplitude (volts) 2.4 V [facility] Jaciel RA Pacing Polarity BI [facility] Jaciel RA Pacing Pulse Width (ms) 0.4 ms [facility] Jaciel RA Sensing Amplitude (mvolts) AUTO [facility] Jaciel RA Sensing Blanking Period (ms) 56 ms [facility] Jaciel RA Sensing Polarity BI [facility] Jaciel RA Sensing Refractory Period (ms) AUTO [facility] Jaciel RV Pacing Amplitude (volts) 3.4 V [facility] Jaciel RV Pacing Polarity BI [facility] Jaciel RV Pacing Pulse Width (ms) 0.4 ms [facility] Jaciel RV Sensing Amplitude (mvolts) AUTO [facility] Jaciel RV Sensing Blanking Period (ms) 30 ms [facility] Jaciel RV Sensing Polarity BI [facility] Jaciel RV Sensing Refractory Period (ms) 250 ms [facility] Hysteresis Rate (bpm) 60 {beats}/min [facility] Lead1 Mfg SUZETTE [facility] Lead2 Mfg SUZETTE [facility] Location RA [facility] Location RV [facility] Lower Rate (bpm) 60 {beats}/min [facility] Max Sensor Rate (bmp) 130 {beats}/min [facility] Model [id number] Monika Dominguez [facility] Model [id number] [facility] Model [id number] [facility] Pacemaker Dependent? NO [facility] PM-Device Mfg BIO [facility] PM-PMT Intervention ON [facility] PM-PVC Intervention ON [facility] PM-Rate Modulation Acceleration Reaction 4 s [facility] PM-Rate Modulation Deceleration 0.5 m [facility] PM-Rate Modulation Dougherty 23 [facility] PM-Rate Modulation Threshold Medium [facility] RA Bipolar Impedance ohms 448 ohm [facility] Rhythm AF with controlled ventricular rate. [facility] RV Bipolar Impedance ohms 390 ohm [facility] Serial Number [id number] [facility] Serial Number [id number] [facility] Serial Number [id number] [facility] Thresh RA Sensing Amplitude (mvolts) 2.4 mV [facility] Thresh RV Capture Amplitude (volts) 1.8 V [facility] Thresh RV Capture Duration (ms) 0.4 ms [facility] Thresh RV Sensing Amplitude (mvolts) 2.4 mV [facility] Tracking Rate (bpm) 160 {beats}/min [facility] BNPon 11-28-2021 Natriuretic peptide B (Bld) [Mass/Vol] 42265.0 pg/mL Critically high <=1,800.0 [facility] Comment on above: Performed By: #### C MP, BNP, CRP ####[facility] Uje[address]fr[address]avj[address] [place], [place] [address]Dr. Farhat Leal CBC AUTO DIFFon 11-28-2021 BASO # 0.0 103/ul Normal 0.0-0.1 [facility] Comment on above: Performed By: #### C BC ####[facility] Nav[address]qkkip[address] [place] [address]Dr. Farhat Leal Basophils/100 WBC (Bld) 0.3 % Normal 0.2-2.0 [facility] Comment on above: Performed By: #### C BC ####[facility] Wsayqkcbos[address] [place], [place] [address]Dr. Farhat Leal EO # 0.1 103/ul Normal 0.0-0.7 [facility] Comment on above: Performed By: #### C BC ####[facility] Vfqitwovex[address] [place], [place] [address]Dr. Farhat Leal Eosinophils/100 WBC (Bld) 1.0 % Normal 0.9-7.0 [facility] Comment on above: Performed By: #### C BC ####[facility] Vwkhmgmtzo0572 [place] [address]Dr. Farhat Leal Erythrocyte distribution width (RBC) [Ratio] 14.0 % Normal 11.0-15.0 [facility] Comment on above: Performed By: #### C BC ####[facility] [address]mnadlynlc[address] [place], [place] [address]Dr. Farhat Leal Hematocrit (Bld) [Volume fraction] 27.6 % Critically low 42.0-54.0 [facility] Comment on above: Performed By: #### C BC ####[facility] Xzppgnxcov[address] [place], [place] [address]Dr. Farhat Leal Hemoglobin (Bld) [Mass/Vol] 9.0 g/dL Critically low 14.0-18.0 [facility] Comment on above: Performed By: #### C BC ####[facility] F[address]awaslhr[address] [place], [place] [address]Dr. Farhat Leal IG # 0.12 10e3/ul Critically high 0.00-0.03 [facility] Comment on above: Performed By: #### C BC ####[facility] Xytymcjlgf[address] [place], [place] [address]Dr. Farhat Leal IG % 1.0 % Critically high 0.0-0.5 [facility] Comment on above: Performed By: #### C BC ####[facility] N[address]eoqcjny[address] [place], [place] [address]Dr. Farhat Leal LYMPH # 1.2 103/ul Normal 1.2-3.8 [facility] Comment on above: Performed By: #### C BC ####[facility] Itpbffbhbo[address] [place], [place] [address]Dr. Farhat Leal Lymphocytes/100 WBC (Bld) 9.9 % Critically low 20.5-60.0 [facility] Comment on above: Performed By: #### C BC ####[facility] [address]hw[address] [place] [id number]. Farhat Leal MANUAL DIFF REQ NO Normal [facility] Comment on above: Performed By: #### C BC ####[facility] Jerxdtzncs44[address] [place] [id number]. Farhat Leal MCH (RBC) [Entitic mass] 30.0 pg Normal 25.9-34.0 [facility] Comment on above: Performed By: #### C BC ####[facility] Nryxmznzvy65[address] [place] [address]Dr. Farhat Leal MCHC (RBC) [Mass/Vol] 32.6 g/dL Normal 29.9-35.2 [facility] Comment on above: Performed By: #### C BC ####[facility] K[address]zxnpwsi80[address] [place] [address]Dr. Farhat Leal MCV (RBC) [Entitic vol] 92.0 fL Normal 80.0-94.0 [facility] Comment on above: Performed By: #### C BC ####[facility] Zefcwzyrpe4575 [place] [id number]. Farhat Elvis MONO # 1.1 103/ul Critically high 0.3-0.8 [facility] Comment on above: Performed By: #### C BC ####[facility] Vxivubyiil9867 [place] [id number]. Madelynlorri Leal Monocytes/100 WBC (Bld) 9.3 % Normal 1.7-12.0 [facility] Comment on above: Performed By: #### C BC ####[facility] Rmzxeoujam9947 [place] [id number]. Farhat Leal NEUT # 9.3 103/ul Critically high 1.4-6.5 [facility] Comment on above: Performed By: #### C BC ####[facility] Dyjzgkezev0589 [place] [id number]. Farhat Leal Neutrophils/100 WBC (Bld) 78.5 % Critically high 43.0-75.0 [facility] Comment on above: Performed By: #### C BC ####[facility] Zjgaehyvlo4236 [place] [id number]. Farhat Leal Platelet mean volume (Bld) [Entitic vol] 9.6 fL Normal 9.5-13.5 [facility] Comment on above: Performed By: #### C BC ####[facility] Vltquwyahd59[address] [place] [id number]. Farhat Leal PLT 357 103/ul Normal 150-450 [facility] Comment on above: Performed By: #### C BC ####[facility] Ewfzpytdtx5906 [place] [id number]. Farhat Leal RBC 3.00 106/ul Critically low 4.70-6.10 [facility] Comment on above: Performed By: #### C BC ####[facility] Tcdfrlupgn4242 [place] [id number]. Farhat Leal WBC 11.8 103/ul Critically high 4.0-11.0 [facility] Comment on above: Performed By: #### C BC ####[facility] Jrqtiivu[address] [place], [place] [address]Dr. Farhat Leal CRPon 11-28-2021 CRP 20.9 mg/dL Critically high <=1.0 [facility] Comment on above: Performed By: #### C MP, BNP, CRP ####[facility] Cnedzodvgk[address] [place] [id number]. Farhat Leal CULTURE OTHERon 11-28-2021 CULTURE OTHER Normal [facility] Comment on above: Performed By: #### O THCX ####[facility] Drgyinmjck6079 [place] [id number]. Farhat Leal CULTURE OTHER Normal [facility] Comment on above: Performed By: #### O THCX ####[facility] [address]xhqxdaern[address] [place], [place] [address]Dr. Farhat Leal PROF 14(COMP METB)on 022 Albumin [Mass/Vol] 1.4 g/dL Critically low 3.4-5.0 [facility] Comment on above: Performed By: #### C MP, BNP, CRP ####[facility] Qjgmrkcloq1358 [place] [address]Dr. Farhat Leal Albumin/Globulin [Mass ratio] 0.4 {ratio} Normal [facility] Comment on above: Performed By: #### C MP, BNP, CRP ####[facility] Llalcxvtra5583 [place] [address]Dr. Farhat Leal ALP [Catalytic activity/Vol] 82 U/L Normal 46-116 [facility] Comment on above: Performed By: #### C MP, BNP, CRP ####[facility] Dmqgvddqgu8281 [place] [address]Dr. Farhat Leal ALT [Catalytic activity/Vol] 20 U/L Normal 16-63 [facility] Comment on above: Performed By: #### C MP, BNP, CRP ####[facility] Tfwbsorgzt[address] [place], [place] [address]Dr. Farhat Leal Anion gap [Moles/Vol] 13.0 mmol/L Normal [facility] Comment on above: Performed By: #### C MP, BNP, CRP ####[facility] Qcdrxccroj[address] [place], [place] [address]Dr. Farhat Leal AST [Catalytic activity/Vol] 33 U/L Normal 15-37 [facility] Comment on above: Performed By: #### C MP, BNP, CRP ####[facility] Znfbfewlax[address] [place], [place] [address]Dr. Farhat Leal Bilirubin [Mass/Vol] 0.7 mg/dL Normal 0.2-1.0 [facility] Comment on above: Performed By: #### C MP, BNP, CRP ####[facility] Vglwynbfxc9[address] [place], [place] [address]Dr. Farhat Leal Calcium [Mass/Vol] 8.4 mg/dL Critically low 8.5-10.1 [facility] Comment on above: Performed By: #### C MP, BNP, CRP ####[facility] Eclwdpqoya97[address] [place], [place] [address]Dr. Farhat Leal Chloride [Moles/Vol] 100 mmol/L Normal 98-107 [facility] Comment on above: Performed By: #### C MP, BNP, CRP ####[facility] Mzhafgnyua83[address] [place] [address]Dr. Farhat Leal CO2 [Moles/Vol] 23.7 mmol/L Normal 21.0-32.0 [facility] Comment on above: Performed By: #### C MP, BNP, CRP ####[facility] Ryqfoqulfv6623 [place] [address]Dr. Farhat Leal Creatinine [Mass/Vol] 1.70 mg/dL Critically high 0.70-1.30 [facility] Comment on above: Performed By: #### C MP, BNP, CRP ####[facility] Pcxmxeeizy[address] [place], [place] [address]Dr. Farhat Leal EGFR-AF GERMAN 48 mL/min/1.73m2 Critically low >=60 [facility] Comment on above: Performed By: #### C MP, BNP, CRP ####[facility] Bzhzzokegk164[address] [place], [place] [address]Dr. Farhat Leal EGFR-NON AF GERMAN 39 mL/min/1.73m2 Critically low >=60 [facility] Comment on above: Performed By: #### C MP, BNP, CRP ####[facility] Ckealomyep370[address] [place], [place] [address]Dr. Farhat Leal Globulin (S) [Mass/Vol] 3.6 g/dL Normal [facility] Comment on above: Performed By: #### C MP, BNP, CRP ####[facility] Zjsyoyizdy9398 [place] [address]Dr. Farhat Leal Glucose [Mass/Vol] 232 mg/dL Critically high 74-106 [facility] Comment on above: Performed By: #### C MP, BNP, CRP ####[facility] Seukgpnxgh27[address] [place], [place] [address]Dr. Farhat Leal Potassium [Moles/Vol] 3.7 mmol/L Normal 3.5-5.1 [facility] Comment on above: Performed By: #### C MP, BNP, CRP ####[facility] Lsedifelog1201 [place] [address]Dr. Farhat Leal Protein [Mass/Vol] 5.0 g/dL Critically low 6.4-8.2 Th [facility] Comment on above: Performed By: #### C MP, BNP, CRP ####[facility] Ydiwihlxtp3774 [place] [address]Dr. Farhat Leal Sodium [Moles/Vol] 133 mmol/L Critically low 136-145 Th [facility] Comment on above: Performed By: #### C MP, BNP, CRP ####[facility] Egmdhveqfc9439 [place] [address]Dr. Farhat Leal Urea nitrogen [Mass/Vol] 52.0 mg/dL Critically high 7.0-18.0 [facility] Comment on above: Performed By: #### C MP, BNP, CRP ####[facility] Keziniyjjy[address] [place], [place] [address]Dr. Farhat Leal Urea nitrogen/Creatinine [Mass ratio] 30.6 mg/mg Normal [facility] Comment on above: Performed By: #### C MP, BNP, CRP ####[facility] Dvebcagcnm1608 [place] [address]Dr. Farhat Leal PROTIMEon 11-28-2021 INR Coag (PPP) [Relative time] 1.29 {INR} Normal [facility] Comment on above: Performed By: #### P T ####[facility] Braohnsrry[address] [place], [place] [address]Dr. Farhat Leal INR GUIDELINES SEE BELOW Normal [facility] Comment on above: Result Comment: MALINA RED INR: 2.0 - 3.0 CONDITIONS NOT LISTED BELOW 2.5 - 3.5 FOR PROSTHETIC HEART VALVE REPLACEMENT 2.5 - 3.5 RECURRENT THROMBOSIS Performed By: #### P T ####[facility] Zdqkoennte[address] [place], [place] [address]Dr. Farhat Leal PT Coag (PPP) [Time] 13.7 s Critically high 9.0-11.6 [facility] Comment on above: Performed By: #### P T ####[facility] Kprijbmesg[address] [place], [place] [address]Dr. Farhat Leal SED RATE WESTERGRENon 2021 SED RATE 77 mm/hr Critically high <=20 [facility] Comment on above: Performed By: #### S EDR ####[facility] Toivizpaey[address] [place], [place] [address]Dr. Farhat Leal XR CHEST 2 Von 11-28-2021 XR CHEST 2 V Normal [facility] BNPon 11-27-2021 Natriuretic peptide B (Bld) [Mass/Vol] 76635.0 pg/mL Critically high <=1,800.0 [facility] Comment on above: Performed By: #### B CLIENT LIAISON, CMP, CRP ####[facility] Giuhiczgdy[address] [place], [place] [address]Dr. Farhat Leal CBC AUTO DIFFon 11-27-2021 BASO # 0.0 103/ul Normal 0.0-0.1 [facility] Comment on above: Performed By: #### C BC ####[facility] Vfcizmrdge[address] [place], [place] [address]Dr. Farhat Leal Basophils/100 WBC (Bld) 0.2 % Normal 0.2-2.0 [facility] Comment on above: Performed By: #### C BC ####[facility] Jzacllvedr[address] [place], [place] [address]Dr. Farhat Leal EO # 0.2 103/ul Normal 0.0-0.7 [facility] Comment on above: Performed By: #### C BC ####[facility] Bbsgiqisey[address] [place], [place] [address]Dr. Farhat Leal Eosinophils/100 WBC (Bld) 1.9 % Normal 0.9-7.0 [facility] Comment on above: Performed By: #### C BC ####[facility] Etqwhxnese[address] [place], [place] [address]Dr. Farhat Leal Erythrocyte distribution width (RBC) [Ratio] 13.9 % Normal 11.0-15.0 [facility] Comment on above: Performed By: #### C BC ####[facility] Cbxptrtvxm[address] [place], [place] [address]DrSkylar Leal Hematocrit (Bld) [Volume fraction] 28.7 % Critically low 42.0-54.0 [facility] Comment on above: Performed By: #### C BC ####[facility] Lqhvdhhijo3859 [place] [address]DrSkylar Leal Hemoglobin (Bld) [Mass/Vol] 9.3 g/dL Critically low 14.0-18.0 [facility] Comment on above: Performed By: #### C BC ####[facility] Ubmprwdipd2026 [place] [address]DrSkylar Leal IG # 0.14 10e3/ul Critically high 0.00-0.03 [facility] Comment on above: Performed By: #### C BC ####[facility] Cislyyipyn7707 [place] [address]DrSkylar Leal IG % 1.2 % Critically high 0.0-0.5 [facility] Comment on above: Performed By: #### C BC ####[facility] Hgvnxckvpd[address] [place], [place] [address]DrSkylar Leal LYMPH # 1.1 103/ul Critically low 1.2-3.8 [facility] Comment on above: Performed By: #### C BC ####[facility] Zldsetpzhi2766 [place] [address]DrSkylar Leal Lymphocytes/100 WBC (Bld) 9.4 % Critically low 20.5-60.0 [facility] Comment on above: Performed By: #### C BC ####[facility] Txdhbqcnod9834 [place] [address]DrSkylar Leal MANUAL DIFF REQ NO Normal [facility] Comment on above: Performed By: #### C BC ####[facility] He[address]rucvyil[address] [place], [place] [address]DrSkylar Leal MCH (RBC) [Entitic mass] 29.7 pg Normal 25.9-34.0 [facility] Comment on above: Performed By: #### C BC ####[facility] Qcdxqdlzok[address] [place], [place] [address]DrSkylar Leal MCHC (RBC) [Mass/Vol] 32.4 g/dL Normal 29.9-35.2 [facility] Comment on above: Performed By: #### C BC ####[facility] Psperfihvl7425 [place] [id number]. Farhat Leal MCV (RBC) [Entitic vol] 91.7 fL Normal 80.0-94.0 [facility] Comment on above: Performed By: #### C BC ####[facility] Mkdxiocqhc1496 [place] [address]Dr. Farhat Elvis MONO # 1.1 103/ul Critically high 0.3-0.8 [facility] Comment on above: Performed By: #### C BC ####[facility] Jfmjupyaec5064 [place] [address]Dr. Madelynlorri Leal Monocytes/100 WBC (Bld) 9.7 % Normal 1.7-12.0 [facility] Comment on above: Performed By: #### C BC ####[facility] X[address]qjwk[address]fb[address] [place], [place] [address]Dr. Farhat Leal NEUT # 9.2 103/ul Critically high 1.4-6.5 [facility] Comment on above: Performed By: #### C BC ####[facility] Wckgyyajvu[address] [place], [place] [address]Dr. Farhat Elvis Neutrophils/100 WBC (Bld) 77.6 % Critically high 43.0-75.0 [facility] Comment on above: Performed By: #### C BC ####[facility] Dzapsxrbyp1165 [place] [address]Dr. Farhat Elvis Platelet mean volume (Bld) [Entitic vol] 9.5 fL Normal 9.5-13.5 [facility] Comment on above: Performed By: #### C BC ####[facility] Zhxqlpmsws3104 [place] [address]Dr. Madelynlorri Elvis PLT 375 103/ul Normal 150-450 [facility] Comment on above: Performed By: #### C BC ####[facility] Grwwlolysf1821 [place] [address]Dr. Farhat Leal RBC 3.13 106/ul Critically low 4.70-6.10 [facility] Comment on above: Performed By: #### C BC ####[facility] Rbaamhvilp9313 [place] [id number]. Farhat Leal WBC 11.8 103/ul Critically high 4.0-11.0 [facility] Comment on above: Performed By: #### C BC ####[facility] Pdahckyjab9409 [place] [address]Dr. Farhat Leal CRPon 11-27-2021 CRP 24.5 mg/dL Critically high <=1.0 [facility] Comment on above: Performed By: #### B CLIENT LIAISON, CMP, CRP ####[facility] Wutpjsacyj25[address] [place] [address]Dr. Farhat Leal CULTURE OTHERon 11-27-2021 CULTURE OTHER Normal [facility] Comment on above: Performed By: #### O THCX ####[facility] Xnbfyaabvf3363 [place] [address]Dr. Farhat Leal CULTURE OTHER Normal [facility] Comment on above: Performed By: #### O THCX ####[facility] Nbcppcdchx8717 [place] [address]Dr. Farhat Leal CULTURE WOUNDon 11-27-2021 CULTURE WOUND Normal [facility] Comment on above: Performed By: #### W OUNDCX ####[facility] Usdklcvluq6154 [place] [address]Dr. Farhat Leal POINT OF CARE GLUCOSEon 11-15 Glucose [Mass/Vol] 147 mg/dL Critically high 74-106 [facility] Comment on above: Performed By: #### P OCGLUC ####[facility] Dimxjcoxpy0914 [place] [address]Dr. Farhat Leal PROF 14(COMP METB)on 022 Albumin [Mass/Vol] 1.4 g/dL Critically low 3.4-5.0 [facility] Comment on above: Performed By: #### B CLIENT LIAISON, CMP, CRP ####[facility] Czxmctdimz5954 [place] [address]Dr. Farhat Leal Albumin/Globulin [Mass ratio] 0.4 {ratio} Normal [facility] Comment on above: Performed By: #### B CLIENT LIAISON, CMP, CRP ####[facility] Ordefrbdtd4325 [place] [address]Dr. Farhat Leal ALP [Catalytic activity/Vol] 82 U/L Normal 46-116 [facility] Comment on above: Performed By: #### B CLIENT LIAISON, CMP, CRP ####[facility] Clkolyyzpi485[address] [place] [address]Dr. Farhat Leal ALT [Catalytic activity/Vol] 22 U/L Normal 16-63 [facility] Comment on above: Performed By: #### B CLIENT LIAISON, CMP, CRP ####[facility] Effeggdgwf0565 [place] [address]Dr. Farhat Leal Anion gap [Moles/Vol] 14.2 mmol/L Normal [facility] Comment on above: Performed By: #### B CLIENT LIAISON, CMP, CRP ####[facility] Yfdxfhthut[address] [place], [place] [address]Dr. Farhat Leal AST [Catalytic activity/Vol] 35 U/L Normal 15-37 [facility] Comment on above: Performed By: #### B CLIENT LIAISON, CMP, CRP ####[facility] Fqcklgjsby[address] [place], [place] [address]Dr. Farhat Leal Bilirubin [Mass/Vol] 0.7 mg/dL Normal 0.2-1.0 [facility] Comment on above: Performed By: #### B CLIENT LIAISON, CMP, CRP ####[facility] Dywzeggwjs[address] [place], [place] [address]Dr. Farhat Leal Calcium [Mass/Vol] 8.2 mg/dL Critically low 8.5-10.1 [facility] Comment on above: Performed By: #### B CLIENT LIAISON, CMP, CRP ####[facility] Uilfmlmjjl[address] [place], [place] [address]Dr. Farhat Leal Chloride [Moles/Vol] 99 mmol/L Normal 98-107 [facility] Comment on above: Performed By: #### B CLIENT LIAISON, CMP, CRP ####[facility] Wtyytrmldt0418 [place] [address]Dr. Farhat Leal CO2 [Moles/Vol] 22.6 mmol/L Normal 21.0-32.0 [facility] Comment on above: Performed By: #### B CLIENT LIAISON, CMP, CRP ####[facility] Ecscdsduzy7794 [place] [address]Dr. Farhat Leal Creatinine [Mass/Vol] 1.73 mg/dL Critically high 0.70-1.30 [facility] Comment on above: Performed By: #### B CLIENT LIAISON, CMP, CRP ####[facility] Xhodglupiy[address] [place], [place] [address]Dr. Farhat Leal EGFR-AF GERMAN 47 mL/min/1.73m2 Critically low >=60 [facility] Comment on above: Performed By: #### B CLIENT LIAISON, CMP, CRP ####[facility] Lvynwnrgzk[address] [place], [place] [address]Dr. Farhat Leal EGFR-NON AF GERMAN 38 mL/min/1.73m2 Critically low >=60 [facility] Comment on above: Performed By: #### B CLIENT LIAISON, CMP, CRP ####[facility] Fiwnvzcbha[address] [place], [place] [address]Dr. Farhat Leal Globulin (S) [Mass/Vol] 3.7 g/dL Normal [facility] Comment on above: Performed By: #### B CLIENT LIAISON, CMP, CRP ####[facility] Nubfjwcfsp6025 [place] [address]Dr. Farhat Leal Glucose [Mass/Vol] 220 mg/dL Critically high 74-106 T [facility] Comment on above: Performed By: #### B CLIENT LIAISON, CMP, CRP ####[facility] Lwalnipjqa[address] [place], [place] [address]Dr. Farhat Leal Potassium [Moles/Vol] 3.8 mmol/L Normal 3.5-5.1 [facility] Comment on above: Performed By: #### B CLIENT LIAISON, CMP, CRP ####[facility] Crsagzaluo8[address] [place], [place] [address]Dr. Farhat Leal Protein [Mass/Vol] 5.1 g/dL Critically low 6.4-8.2 Th [facility] Comment on above: Performed By: #### B CLIENT LIAISON, CMP, CRP ####[facility] Dipgzeejek1782 [place] [address]Dr. Farhat Leal Sodium [Moles/Vol] 132 mmol/L Critically low 136-145 Th [facility] Comment on above: Performed By: #### B CLIENT LIAISON, CMP, CRP ####[facility] Ckwvxxpmyz1201 [place] [address]Dr. Farhat Leal Urea nitrogen [Mass/Vol] 49.0 mg/dL Critically high 7.0-18.0 [facility] Comment on above: Performed By: #### B CLIENT LIAISON, CMP, CRP ####[facility] Umwisdxkef7502 [place] [address]Dr. Farhat Leal Urea nitrogen/Creatinine [Mass ratio] 28.3 mg/mg Normal [facility] Comment on above: Performed By: #### B CLIENT LIAISON, CMP, CRP ####[facility] Mrfxlbdkca5730 [place] [address]Dr. Farhat Leal PROTIMEon 11-27-2021 INR Coag (PPP) [Relative time] 1.25 {INR} Normal [facility] Comment on above: Performed By: #### P T ####[facility] Hmrltsqycb6922 [place] [address]Dr. Farhat Leal INR GUIDELINES SEE BELOW Normal [facility] Comment on above: Result Comment: MALINA RED INR: 2.0 - 3.0 CONDITIONS NOT LISTED BELOW 2.5 - 3.5 FOR PROSTHETIC HEART VALVE REPLACEMENT 2.5 - 3.5 RECURRENT THROMBOSIS Performed By: #### P T ####[facility] Hvgvwogtaf[address] [place], [place] [address]Dr. Farhat Leal PT Coag (PPP) [Time] 13.3 s Critically high 9.0-11.6 [facility] Comment on above: Performed By: #### P T ####[facility] Wfjjrbmfzh656[address] [place], [place] [address]Dr. Farhat Leal SED RATE WESTERGRENon 2021 SED RATE 60 mm/hr Critically high <=20 [facility] Comment on above: Performed By: #### S EDR ####[facility] Thinxlsolw45[address] [place] [address]Dr. Farhat Leal VANCOMYCIN TROUGHon 11-28-19 VANCOMYCIN TROUGH 21.2 ug/ml Critically high 5.0-20.0 Th e [facility] Comment on above: Performed By: #### V ANCT ####[facility] Dmsewhpbsc[address] [place], [place] [address]Dr. Farhat Leal XR CHEST 1 Von 11-27-2021 XR CHEST 1 V Normal [facility] BNPon 11-26-2021 Natriuretic peptide B (Bld) [Mass/Vol] 53322.0 pg/mL Critically high <=1,800.0 [facility] Comment on above: Performed By: #### B CLIENT LIAISON, CRP, CMP ####[facility] Aanmjlfcvp658[address] [place], [place] [address]Dr. Farhat Leal CBC AUTO DIFFon 11-26-2021 BASO # 0.0 103/ul Normal 0.0-0.1 [facility] Comment on above: Performed By: #### C BC ####[facility] Vwmhdpmzal[address] [place], [place] [address]Dr. Farhat Elvis Basophils/100 WBC (Bld) 0.2 % Normal 0.2-2.0 [facility] Comment on above: Performed By: #### C BC ####[facility] Aseeyxovat327[address] [place], [place] [address]Dr. Farhat Leal EO # 0.0 103/ul Normal 0.0-0.7 [facility] Comment on above: Performed By: #### C BC ####[facility] Llpmefsfbu98[address] [place], [place] [address]Dr. Farhat Elvis Eosinophils/100 WBC (Bld) 0.3 % Critically low 0.9-7.0 [facility] Comment on above: Performed By: #### C BC ####[facility] Nkwvunjwwa[address] [place], [place] [address]Dr. Farhat Leal Erythrocyte distribution width (RBC) [Ratio] 13.9 % Normal 11.0-15.0 [facility] Comment on above: Performed By: #### C BC ####[facility] Fyxjnprxxf1906 [place] [address]Dr. Farhat Leal Hematocrit (Bld) [Volume fraction] 27.3 % Critically low 42.0-54.0 [facility] Comment on above: Performed By: #### C BC ####[facility] Xqldewntpb3502 [place] [address]Dr. Farhat Leal Hemoglobin (Bld) [Mass/Vol] 8.8 g/dL Critically low 14.0-18.0 [facility] Comment on above: Performed By: #### C BC ####[facility] Qpbahxrelm6593 [place] [address]Dr. Farhat Leal IG # 0.17 10e3/ul Critically high 0.00-0.03 [facility] Comment on above: Performed By: #### C BC ####[facility] Nhajzuyhsb5961 [place] [address]Dr. Farhat Leal IG % 1.2 % Critically high 0.0-0.5 [facility] Comment on above: Performed By: #### C BC ####[facility] Sfwrhbxbhc2757 [place] [address]Dr. Farhat Leal LYMPH # 0.7 103/ul Critically low 1.2-3.8 [facility] Comment on above: Performed By: #### C BC ####[facility] Zhuysuxwzu6460 [place] [address]Dr. Farhat Leal Lymphocytes/100 WBC (Bld) 4.8 % Critically low 20.5-60.0 [facility] Comment on above: Performed By: #### C BC ####[facility] Mgzildiaew2816 [place] [address]Dr. Farhat Leal MANUAL DIFF REQ NO Normal [facility] Comment on above: Performed By: #### C BC ####[facility] Pozkovcyqd[address] [place], [place] [address]Dr. Farhat Leal MCH (RBC) [Entitic mass] 29.9 pg Normal 25.9-34.0 [facility] Comment on above: Performed By: #### C BC ####[facility] Hlrlpnaqah16[address] [place] [id number]. Farhat Leal MCHC (RBC) [Mass/Vol] 32.2 g/dL Normal 29.9-35.2 [facility] Comment on above: Performed By: #### C BC ####[facility] Owasctzxpd73[address] [place] [address]Dr. Farhat Leal MCV (RBC) [Entitic vol] 92.9 fL Normal 80.0-94.0 [facility] Comment on above: Performed By: #### C BC ####[facility] Sjooddipgy0374 [place] [address]Dr. Farhat Leal MONO # 1.3 103/ul Critically high 0.3-0.8 [facility] Comment on above: Performed By: #### C BC ####[facility] Pwqrtmqyuu1236 [place] [address]Dr. Farhat Leal Monocytes/100 WBC (Bld) 9.6 % Normal 1.7-12.0 [facility] Comment on above: Performed By: #### C BC ####[facility] Twcshdnzaq9038 [place] [address]Dr. Farhat Leal NEUT # 11.4 103/ul Critically high 1.4-6.5 [facility] Comment on above: Performed By: #### C BC ####[facility] Igmaksbkhw9889 [place] [id number]. Farhat Elvis Neutrophils/100 WBC (Bld) 83.9 % Critically high 43.0-75.0 [facility] Comment on above: Performed By: #### C BC ####[facility] Sqgrqlatga1381 [place] [address]Dr. Farhat Leal Platelet mean volume (Bld) [Entitic vol] 9.6 fL Normal 9.5-13.5 [facility] Comment on above: Performed By: #### C BC ####[facility] Gvzrlaqmxz2035 [place] [id number]. Farhat Leal PLT 395 103/ul Normal 150-450 [facility] Comment on above: Performed By: #### C BC ####[facility] Bdunenwzfo2813 [place] [id number]. Farhat Leal RBC 2.94 106/ul Critically low 4.70-6.10 [facility] Comment on above: Performed By: #### C BC ####[facility] Iwefefeqsg9103 [place] [id number]. Farhat Leal WBC 13.6 103/ul Critically high 4.0-11.0 [facility] Comment on above: Performed By: #### C BC ####[facility] Hrfiafpxtf6944 [place] [address]Dr. Farhat Leal CRPon 11-26-2021 CRP [Mass/Vol] mg/L Critically high <=1.0 [facility] Comment on above: Performed By: #### B CLIENT LIAISON, CRP, CMP ####[facility] Rwgknreuft6435 [place] [address]Dr. Farhat Leal PROF 14(COMP METB)on 022 Albumin [Mass/Vol] 1.5 g/dL Critically low 3.4-5.0 [facility] Comment on above: Performed By: #### B CLIENT LIAISON, CRP, CMP ####[facility] Kaorsfhbdd0051 [place] [address]Dr. Farhat Leal Albumin/Globulin [Mass ratio] 0.4 {ratio} Normal [facility] Comment on above: Performed By: #### B CLIENT LIAISON, CRP, CMP ####[facility] Zvluytupzo0184 [place] [address]Dr. Farhat Leal ALP [Catalytic activity/Vol] 88 U/L Normal 46-116 [facility] Comment on above: Performed By: #### B CLIENT LIAISON, CRP, CMP ####[facility] Mjswhsclfa1446 [place] [address]Dr. Farhat Leal ALT [Catalytic activity/Vol] 29 U/L Normal 16-63 [facility] Comment on above: Performed By: #### B CLIENT LIAISON, CRP, CMP ####[facility] Amrytmtbtt3550 [place] [address]Dr. Farhat Leal Anion gap [Moles/Vol] 13.3 mmol/L Normal [facility] Comment on above: Performed By: #### B CLIENT LIAISON, CRP, CMP ####[facility] Jxbnpzopww1403 [place] [address]Dr. Farhat Leal AST [Catalytic activity/Vol] 32 U/L Normal 15-37 [facility] Comment on above: Performed By: #### B CLIENT LIAISON, CRP, CMP ####[facility] Wssevzqdxc64[address] [place], [place] [address]Dr. Farhat Leal Bilirubin [Mass/Vol] 0.6 mg/dL Normal 0.2-1.0 [facility] Comment on above: Performed By: #### B CLIENT LIAISON, CRP, CMP ####[facility] Qlronkxzsc[address] [place], [place] [address]Dr. Farhat Leal Calcium [Mass/Vol] 8.0 mg/dL Critically low 8.5-10.1 [facility] Comment on above: Performed By: #### B CLIENT LIAISON, CRP, CMP ####[facility] Oqfoqvyxns[address] [place], [place] [address]Dr. Farhat Leal Chloride [Moles/Vol] 98 mmol/L Normal 98-107 [facility] Comment on above: Performed By: #### B CLIENT LIAISON, CRP, CMP ####[facility] [address]tkmvejtsf97[address] [place], [place] [address]Dr. Farhat Leal CO2 [Moles/Vol] 23.7 mmol/L Normal 21.0-32.0 [facility] Comment on above: Performed By: #### B CLIENT LIAISON, CRP, CMP ####[facility] Oufpvhuvhv[address] [place], [place] [address]Dr. Farhat Leal Creatinine [Mass/Vol] 2.08 mg/dL Critically high 0.70-1.30 [facility] Comment on above: Performed By: #### B CLIENT LIAISON, CRP, CMP ####[facility] Rdmzkoqojj4805 [place] [address]Dr. Farhat Leal EGFR-AF GERMAN 38 mL/min/1.73m2 Critically low >=60 [facility] Comment on above: Performed By: #### B CLIENT LIAISON, CRP, CMP ####[facility] Aaihogfflm66[address] [place], [place] [address]Dr. Farhat Leal EGFR-NON AF GERMAN 31 mL/min/1.73m2 Critically low >=60 [facility] Comment on above: Performed By: #### B CLIENT LIAISON, CRP, CMP ####[facility] Vkvhsbqknl514[address] [place], [place] [address]Dr. Farhat Leal Globulin (S) [Mass/Vol] 3.7 g/dL Normal [facility] Comment on above: Performed By: #### B CLIENT LIAISON, CRP, CMP ####[facility] Iizjmggnwb9[address] [place], [place] [address]Dr. Farhat Leal Glucose [Mass/Vol] 315 mg/dL Critically high 74-106 T [facility] Comment on above: Performed By: #### B CLIENT LIAISON, CRP, CMP ####[facility] [address]fzpzakb[address] [place], [place] [address]Dr. Farhat Leal Potassium [Moles/Vol] 4.0 mmol/L Normal 3.5-5.1 [facility] Comment on above: Performed By: #### B CLIENT LIAISON, CRP, CMP ####[facility] Apduwcfxci635[address] [place], [place] [address]Dr. Farhat Leal Protein [Mass/Vol] 5.2 g/dL Critically low 6.4-8.2 Th [facility] Comment on above: Performed By: #### B CLIENT LIAISON, CRP, CMP ####[facility] Lxtswkpylk[address] [place], [place] [address]Dr. Farhat Leal Sodium [Moles/Vol] 131 mmol/L Critically low 136-145 Th [facility] Comment on above: Performed By: #### B CLIENT LIAISON, CRP, CMP ####[facility] Rgbufvwjlm[address] [place], [place] [address]Dr. Madelynlorri Leal Urea nitrogen [Mass/Vol] 50.0 mg/dL Critically high 7.0-18.0 [facility] Comment on above: Performed By: #### B CLIENT LIAISON, CRP, CMP ####[facility] Smdwxjmotw204[address] [place], [place] [address]Dr. Farhat Leal Urea nitrogen/Creatinine [Mass ratio] 24.0 mg/mg Normal [facility] Comment on above: Performed By: #### B CLIENT LIAISON, CRP, CMP ####[facility] Dhtnsjaxch7[address] [place], [place] [address]Dr. Farhat Leal PROTIMEon 11-26-2021 INR Coag (PPP) [Relative time] 1.31 {INR} Normal [facility] Comment on above: Performed By: #### P T ####[facility] Auxoxivefq195[address] [place], [place] [address]Dr. Farhat Leal INR GUIDELINES SEE BELOW Normal [facility] Comment on above: Result Comment: MALINA RED INR: 2.0 - 3.0 CONDITIONS NOT LISTED BELOW 2.5 - 3.5 FOR PROSTHETIC HEART VALVE REPLACEMENT 2.5 - 3.5 RECURRENT THROMBOSIS Performed By: #### P T ####[facility] Vglqzidffm[address] [place], [place] [address]Dr. Farhat Leal PT Coag (PPP) [Time] 13.9 s Critically high 9.0-11.6 [facility] Comment on above: Performed By: #### P T ####[facility] Nhmtypmxxx64[address] [place], [place] [address]Dr. Farhat Leal SED RATE WESTERGRENon 2021 SED RATE 87 mm/hr Critically high <=20 [facility] Comment on above: Performed By: #### S EDR ####[facility] Arfvrrqbln[address] [place], [place] [address]Dr. Farhat Leal BNPon 11-25-2021 Natriuretic peptide B (Bld) [Mass/Vol] 67408.0 pg/mL Critically high <=1,800.0 [facility] Comment on above: Performed By: #### C MP, BNP, CRP ####[facility] Zqczqzfznb[address] [place], [place] [address]Dr. Farhat Leal CBC AUTO DIFFon 11-25-2021 BASO # 0.0 103/ul Normal 0.0-0.1 [facility] Comment on above: Performed By: #### C BC ####[facility] Qrfspwmsor0329 [place] [address]Dr. Farhat Leal Basophils/100 WBC (Bld) 0.4 % Normal 0.2-2.0 [facility] Comment on above: Performed By: #### C BC ####[facility] Vgqcgssuni[address] [place], [place] [address]Dr. Farhat Leal EO # 0.1 103/ul Normal 0.0-0.7 [facility] Comment on above: Performed By: #### C BC ####[facility] Fpqixcvisl17[address] [place], [place] [address]Dr. Faraht Leal Eosinophils/100 WBC (Bld) 1.2 % Normal 0.9-7.0 [facility] Comment on above: Performed By: #### C BC ####[facility] Qeorkybawb[address] [place], [place] [address]Dr. Farhat Leal Erythrocyte distribution width (RBC) [Ratio] 13.7 % Normal 11.0-15.0 [facility] Comment on above: Performed By: #### C BC ####[facility] Voveqzetwu[address] [place], [place] [address]Dr. Farhat Leal Hematocrit (Bld) [Volume fraction] 29.6 % Critically low 42.0-54.0 [facility] Comment on above: Performed By: #### C BC ####[facility] [address]pucdpbzbz[address] [place], [place] [address]Dr. Farhat Leal Hemoglobin (Bld) [Mass/Vol] 9.3 g/dL Critically low 14.0-18.0 [facility] Comment on above: Performed By: #### C BC ####[facility] Zyzvkvsgxr[address] [place], [place] [address]Dr. Farhat Leal IG # 0.15 10e3/ul Critically high 0.00-0.03 [facility] Comment on above: Performed By: #### C BC ####[facility] Xtpcupucyb[address] [place], [place] [address]Dr. Farhat Leal IG % 1.4 % Critically high 0.0-0.5 [facility] Comment on above: Performed By: #### C BC ####[facility] Cqkjlrfbuf3742 [place] [address]Dr. Farhat Leal LYMPH # 0.8 103/ul Critically low 1.2-3.8 [facility] Comment on above: Performed By: #### C BC ####[facility] Ccrtndqhvr3743 [place] [address]Dr. Farhat Leal Lymphocytes/100 WBC (Bld) 7.3 % Critically low 20.5-60.0 [facility] Comment on above: Performed By: #### C BC ####[facility] Epfswrwryc0027 [place] [address]Dr. Farhat Leal MANUAL DIFF REQ NO Normal [facility] Comment on above: Performed By: #### C BC ####[facility] Mkluatknha3072 [place] [address]Dr. Farhat Elvis MCH (RBC) [Entitic mass] 29.3 pg Normal 25.9-34.0 [facility] Comment on above: Performed By: #### C BC ####[facility] Xcwukhepdn0519 [place] [address]Dr. Farhat Elvis MCHC (RBC) [Mass/Vol] 31.4 g/dL Normal 29.9-35.2 [facility] Comment on above: Performed By: #### C BC ####[facility] Xrqxsfmyhx8526 [place] [address]Dr. Farhat Leal MCV (RBC) [Entitic vol] 93.4 fL Normal 80.0-94.0 [facility] Comment on above: Performed By: #### C BC ####[facility] Ibpeeftdmc8276 [place] [address]Dr. Farhat Leal MONO # 1.3 103/ul Critically high 0.3-0.8 [facility] Comment on above: Performed By: #### C BC ####[facility] Qilplgtpyi7100 [place] [address]Dr. Farhat Leal Monocytes/100 WBC (Bld) 12.3 % Critically high 1.7-12.0 [facility] Comment on above: Performed By: #### C BC ####[facility] Hdxaqlqgbp0379 [place] [address]Dr. Farhat Leal NEUT # 8.4 103/ul Critically high 1.4-6.5 [facility] Comment on above: Performed By: #### C BC ####[facility] Fzjbdwwwnv5217 [place] [address]Dr. Farhat Leal Neutrophils/100 WBC (Bld) 77.4 % Critically high 43.0-75.0 [facility] Comment on above: Performed By: #### C BC ####[facility] Lxaqhpaesr0808 [place] [address]Dr. Farhat Leal Platelet mean volume (Bld) [Entitic vol] 9.8 fL Normal 9.5-13.5 [facility] Comment on above: Performed By: #### C BC ####[facility] Botyvoqefc0119 [place] [address]Dr. Farhat Leal PLT 390 103/ul Normal 150-450 [facility] Comment on above: Performed By: #### C BC ####[facility] Ppweyrxzkf0552 [place] [address]Dr. Farhat Leal RBC 3.17 106/ul Critically low 4.70-6.10 [facility] Comment on above: Performed By: #### C BC ####[facility] Lantxaknyl7519 [place] [address]Dr. Farhat Leal WBC 10.9 103/ul Normal 4.0-11.0 [facility] Comment on above: Performed By: #### C BC ####[facility] Vmhkaxlnmj6704 [place] [address]Dr. Farhat Leal CRPon 11-25-2021 CRP 27.2 mg/dL Critically high <=1.0 [facility] Comment on above: Performed By: #### C MP, BNP, CRP ####[facility] Cfuqsmhyrp1971 [place] [address]Dr. Farhat Leal PROF 14(COMP METB)on 022 Albumin [Mass/Vol] 1.5 g/dL Critically low 3.4-5.0 [facility] Comment on above: Performed By: #### C MP, BNP, CRP ####[facility] Bpnquhjvco4228 [place] [address]Dr. Farhat Leal Albumin/Globulin [Mass ratio] 0.4 {ratio} Normal [facility] Comment on above: Performed By: #### C MP, BNP, CRP ####[facility] Tdswvuapfr3557 [place] [address]Dr. Farhat Leal ALP [Catalytic activity/Vol] 86 U/L Normal 46-116 [facility] Comment on above: Performed By: #### C MP, BNP, CRP ####[facility] [address]zzhzdfk[address] [place], [place] [address]Dr. Farhat Leal ALT [Catalytic activity/Vol] 34 U/L Normal 16-63 [facility] Comment on above: Performed By: #### C MP, BNP, CRP ####[facility] Jbitxzwnah[address] [place], [place] [address]Dr. Farhat Leal Anion gap [Moles/Vol] 17.8 mmol/L Normal [facility] Comment on above: Performed By: #### C MP, BNP, CRP ####[facility] Mdmhtpbgns[address] [place], [place] [address]Dr. Farhat Leal AST [Catalytic activity/Vol] 48 U/L Critically high 15-37 [facility] Comment on above: Performed By: #### C MP, BNP, CRP ####[facility] Kqlyntjqco9399 [place] [address]Dr. Farhat Leal Bilirubin [Mass/Vol] 0.8 mg/dL Normal 0.2-1.0 [facility] Comment on above: Performed By: #### C MP, BNP, CRP ####[facility] Ndqtizekcb710[address] [place], [place] [address]Dr. Farhat Leal Calcium [Mass/Vol] 8.3 mg/dL Critically low 8.5-10.1 Th [facility] Comment on above: Performed By: #### C MP, BNP, CRP ####[facility] Zlrewhklmv8793 [place] [address]Dr. Farhat Leal Chloride [Moles/Vol] 97 mmol/L Critically low 98-107 [facility] Comment on above: Performed By: #### C MP, BNP, CRP ####[facility] Jemxtebbcq2922 [place] [address]Dr. Farhat Leal CO2 [Moles/Vol] 23.0 mmol/L Normal 21.0-32.0 [facility] Comment on above: Performed By: #### C MP, BNP, CRP ####[facility] E[address]jcphdlo[address] [place], [place] [address]Dr. Farhat Leal Creatinine [Mass/Vol] 1.68 mg/dL Critically high 0.70-1.30 [facility] Comment on above: Performed By: #### C MP, BNP, CRP ####[facility] Xlygsbjqjr[address] [place], [place] [address]Dr. Farhat Leal EGFR-AF GERMAN 48 mL/min/1.73m2 Critically low >=60 [facility] Comment on above: Performed By: #### C MP, BNP, CRP ####[facility] Iriqcgrbft[address] [place], [place] [address]Dr. Farhat Leal EGFR-NON AF GERMAN 40 mL/min/1.73m2 Critically low >=60 [facility] Comment on above: Performed By: #### C MP, BNP, CRP ####[facility] Taclsniflb[address] [place], [place] [address]Dr. Farhat Leal Globulin (S) [Mass/Vol] 3.9 g/dL Normal [facility] Comment on above: Performed By: #### C MP, BNP, CRP ####[facility] Rehumaakto[address] [place], [place] [address]Dr. Madelynlorri Leal Glucose [Mass/Vol] 282 mg/dL Critically high 74-106 T [facility] Comment on above: Performed By: #### C MP, BNP, CRP ####[facility] Kxzuaehgni0285 [place] [address]Dr. Farhat Leal Potassium [Moles/Vol] 4.8 mmol/L Normal 3.5-5.1 [facility] Comment on above: Performed By: #### C MP, BNP, CRP ####[facility] [address] [place] [address]Dr. Farhat Leal Protein [Mass/Vol] 5.4 g/dL Critically low 6.4-8.2 Th [facility] Comment on above: Performed By: #### C MP, BNP, CRP ####[facility] Wpvsvifmee[address] [place], [place] [address]Dr. Farhat Leal Sodium [Moles/Vol] 133 mmol/L Critically low 136-145 Th [facility] Comment on above: Performed By: #### C MP, BNP, CRP ####[facility] Vidrseesla[address] [place], [place] [address]Dr. Farhat Leal Urea nitrogen [Mass/Vol] 40.0 mg/dL Critically high 7.0-18.0 [facility] Comment on above: Performed By: #### C MP, BNP, CRP ####[facility] Lcpmnzgyyq[address] [place], [place] [address]Dr. Farhat Leal Urea nitrogen/Creatinine [Mass ratio] 23.8 mg/mg Normal [facility] Comment on above: Performed By: #### C MP, BNP, CRP ####[facility] Xzopxmpntt[address] [place], [place] [address]Dr. Farhat Leal PROTIMEon 11-25-2021 INR Coag (PPP) [Relative time] 1.48 {INR} Normal [facility] Comment on above: Performed By: #### P T ####[facility] Trkdyiokmi[address] [place], [place] [address]Dr. Farhat Leal INR GUIDELINES SEE BELOW Normal [facility] Comment on above: Result Comment: MALINA RED INR: 2.0 - 3.0 CONDITIONS NOT LISTED BELOW 2.5 - 3.5 FOR PROSTHETIC HEART VALVE REPLACEMENT 2.5 - 3.5 RECURRENT THROMBOSIS Performed By: #### P T ####[facility] [address]qlywrojzr[address] [place], [place] [address]Dr. Madelynlorri Leal PT Coag (PPP) [Time] 15.6 s Critically high 9.0-11.6 [facility] Comment on above: Performed By: #### P T ####[facility] [address]xxk[address] [place] [address]Dr. Farhat Elvis SED RATE WESTERGRENon 2021 SED RATE 76 mm/hr Critically high <=20 The [facility] Comment on above: Performed By: #### S EDR ####[facility] [address]jqadskq[address] [place] [address]Dr. Farhat Elvis BNPon 11-24-2021 Natriuretic peptide B (Bld) [Mass/Vol] 95145.0 pg/mL Critically high <=1,800.0 [facility] Comment on above: Performed By: #### B CLIENT LIAISON, CMP, CRP ####[facility] [address]wohbl[address] [place] [address]Dr. Madelynlorri Leal CBC AUTO DIFFon 11-24-2021 BASO # 0.0 103/ul Normal 0.0-0.1 [facility] Comment on above: Performed By: #### C BC ####[facility] O[address]fhrfj[address] [place] [address]Dr. Farhat Leal Basophils/100 WBC (Bld) 0.3 % Normal 0.2-2.0 [facility] Comment on above: Performed By: #### C BC ####[facility] Kqfosginlu6[address] [place] [address]Dr. Farhat Leal EO # 0.2 103/ul Normal 0.0-0.7 [facility] Comment on above: Performed By: #### C BC ####[facility] F[address]lycrskw[address] [place] [address]Dr. Farhat Leal Eosinophils/100 WBC (Bld) 1.2 % Normal 0.9-7.0 [facility] Comment on above: Performed By: #### C BC ####[facility] Tdrhrmnrdy[address] [place] [address]Dr. Farhat Leal Erythrocyte distribution width (RBC) [Ratio] 13.5 % Normal 11.0-15.0 [facility] Comment on above: Performed By: #### C BC ####[facility] Scltbpfibl[address] [place] [address]DrSyklar Leal Hematocrit (Bld) [Volume fraction] 31.1 % Critically low 42.0-54.0 [facility] Comment on above: Performed By: #### C BC ####[facility] Hroptqigpc6[address] [place] [address]DrSkylar Leal Hemoglobin (Bld) [Mass/Vol] 10.0 g/dL Critically low 14.0-18.0 [facility] Comment on above: Performed By: #### C BC ####[facility] Kutlzueboc[address] [place], [place] [address]DrSkylar Leal IG # 0.13 10e3/ul Critically high 0.00-0.03 [facility] Comment on above: Performed By: #### C BC ####[facility] Ppqtvcbdqj64[address] [place], [place] [address]DrSkylar Leal IG % 1.0 % Critically high 0.0-0.5 [facility] Comment on above: Performed By: #### C BC ####[facility] Ykpnzgmvce45[address] [place], [place] [address]DrSkylar Leal LYMPH # 0.7 103/ul Critically low 1.2-3.8 The [facility] Comment on above: Performed By: #### C BC ####[facility] Nbmntcilur[address] [place], [place] [address]DrSkylar Leal Lymphocytes/100 WBC (Bld) 4.9 % Critically low 20.5-60.0 [facility] Comment on above: Performed By: #### C BC ####[facility] Xlpijaaxpt403[address] [place], [place] [address]DrSkylar Leal MANUAL DIFF REQ NO Normal [facility] Comment on above: Performed By: #### C BC ####[facility] Apzeordcnl[address] [place], [place] [address]DrSkylar Leal MCH (RBC) [Entitic mass] 29.6 pg Normal 25.9-34.0 [facility] Comment on above: Performed By: #### C BC ####[facility] Regscxybvf225[address] [place] [address]DrSkylar Leal MCHC (RBC) [Mass/Vol] 32.2 g/dL Normal 29.9-35.2 [facility] Comment on above: Performed By: #### C BC ####[facility] Xdtkautmtn9326 [place] [address]DrSkylar Leal MCV (RBC) [Entitic vol] 92.0 fL Normal 80.0-94.0 [facility] Comment on above: Performed By: #### C BC ####[facility] Uqzfiizqnk[address] [place], [place] [address]DrSkylar Leal MONO # 1.3 103/ul Critically high 0.3-0.8 [facility] Comment on above: Performed By: #### C BC ####[facility] Sjzhszmuek[address] [place], [place] [address]DrSkylar Leal Monocytes/100 WBC (Bld) 9.6 % Normal 1.7-12.0 [facility] Comment on above: Performed By: #### C BC ####[facility] Oonkxzejwj[address] [place], [place] [address]DrSkylar Leal NEUT # 11.2 103/ul Critically high 1.4-6.5 [facility] Comment on above: Performed By: #### C BC ####[facility] Kfwwlwgzhq67[address] [place], [place] [address]DrSkylar Leal Neutrophils/100 WBC (Bld) 83.0 % Critically high 43.0-75.0 [facility] Comment on above: Performed By: #### C BC ####[facility] Pfcrxaysat750[address] [place], [place] [address]DrSkylar Leal Platelet mean volume (Bld) [Entitic vol] 9.5 fL Normal 9.5-13.5 [facility] Comment on above: Performed By: #### C BC ####[facility] Xkdkyvndtq238[address] [place], [place] [address]Dr. Farhat Leal PLT 395 103/ul Normal 150-450 [facility] Comment on above: Performed By: #### C BC ####[facility] [address]ehfnctias[address] [place] [id number]. Farhat Leal RBC 3.38 106/ul Critically low 4.70-6.10 [facility] Comment on above: Performed By: #### C BC ####[facility] Usuufsozcf26[address] [place] [id number]. Farhat Leal WBC 13.4 103/ul Critically high 4.0-11.0 [facility] Comment on above: Performed By: #### C BC ####[facility] Lojfmdsqwf97[address] [place] [id number]. Farhat Leal CRPon 11-24-2021 CRP 27.8 mg/dL Critically high <=1.0 [facility] Comment on above: Performed By: #### B CLIENT LIAISON, CMP, CRP ####[facility] K[address]ucdrwmtc[address] [place], [place] [id number]. Farhat Leal CULTURE ANAEROBICon 11-25-19 22 CULTURE ANAEROBIC Culture Observations : NO GROWTH OF ANAEROBES AT 72 HOURS. [facility] Comment on above: Performed By: #### A NACX ####[facility] Filridjxof[address] [place], [place] [address]Dr. Farhat Leal CULTURE ANAEROBIC Culture Observations : NO GROWTH OF ANAEROBES AT 72 HOURS. [facility] Comment on above: Performed By: #### A NACX ####[facility] Fravxrwxzj[address] [place] [id number]. Farhat Leal CULTURE ANAEROBIC Culture Observations : No growth of anaerobes at 72 hours. [facility] Comment on above: Performed By: #### A NACX ####[facility] Qyfwkrlmpy[address] [place], [place] [id number]. Farhat Leal CULTURE ANAEROBIC Culture Observations : No growth of anaerobes at 72 hours. [facility] Comment on above: Performed By: #### A NACX ####[facility] Wgvhltjlnq[address] [place], [place] [address]Dr. Farhat Leal CULTURE URINEon 11-24-2021 CULTURE URINE Culture Observations : NO GROWTH. Normal [facility] Comment on above: Performed By: #### U RCX ####[facility] Wvvtzuaupt[address] [place], [place] [address]Dr. Farhat Leal ECHOCARDIO M/2D COMPLETEon 1 ECHOCARDIO M/2D COMPLETE Normal [facility] ER URINE PROFILEon Bilirubin Ql (U) Negative Normal NEGATIVE [facility] Comment on above: Performed By: #### E RUR ####[facility] Tpllfifmfj6[address] [place], [place] [address]Dr. Farhat Leal Clarity (U) CLEAR Normal CLEAR [facility] Comment on above: Performed By: #### E RUR ####[facility] [address]corabeczk[address] [place], [place] [address]Dr. Farhat Leal Color (U) YELLOW Normal YELLOW [facility] Comment on above: Performed By: #### E RUR ####[facility] Hawb[address]viln[address] [place], [place] [address]Dr. Farhat Leal ERUAHD A micrscopic examination will be performed if indicated. Normal [facility] Comment on above: Performed By: #### E RUR ####[facility] Qqluouursw[address] [place], [place] [address]Dr. Madelynlorri Elvis Glucose Ql (U) Negative Normal NEGATIVE [facility] Comment on above: Performed By: #### E RUR ####[facility] Ffktpjojxk264[address] [place], [place] [address]Dr. Farhat Leal Hemoglobin Ql (U) Negative Normal NEGATIVE [facility] Comment on above: Performed By: #### E RUR ####[facility] Iucpahrihs417[address] [place], [place] [address]Dr. Farhat Leal Ketones Ql (U) TRACE Abnormal NEGATIVE [facility] Comment on above: Performed By: #### E RUR ####[facility] Tbjzofgwox[address] [place], [place] [address]Dr. Farhat Leal LEUKOCYTES Negative Normal NEGATIVE [facility] Comment on above: Performed By: #### E RUR ####[facility] Pixwcpglyl[address] [place] [address]Dr. Farhat Leal Nitrite Ql (U) Negative Normal NEGATIVE [facility] Comment on above: Performed By: #### E RUR ####[facility] V[address]fayvdyjr[address] [place], [place] [address]Dr. Farhat Leal pH (U) 5.5 [pH] Normal 5-9 [facility] Comment on above: Performed By: #### E RUR ####[facility] Nrgecbardw[address] [place], [place] [address]Dr. Farhat Leal SPEC GRAVITY 1.015 Normal 1.005-<=1.02 5 [facility] Comment on above: Performed By: #### E RUR ####[facility] Tvawezjaop813[address] [place], [place] [address]Dr. Farhat Leal UA PROTEIN Negative Normal NEGATIVE/ TRACE [facility] Comment on above: Performed By: #### E RUR ####[facility] Iflcafsxbw72[address] [place], [place] [address]Dr. Farhat Leal UR MICRO IND NOT INDICATED Normal [facility] Comment on above: Performed By: #### E RUR ####[facility] Bhsuhdobyz[address] [place], [place] [address]Dr. Farhat Leal Urobilinogen Qn (U) 0.2 {Boyd'U}/dL Normal 0.2 - 1. 0 [facility] Comment on above: Performed By: #### E RUR ####[facility] Wrrwhjlnli[address] [place], [place] [address]Dr. Farhat Leal GRAM STAINon 11-24-2021 DIPHTHEROIDS Normal [facility] Comment on above: Performed By: #### G STAIN ####[facility] Bcjllcfynu[address] [place], [place] [address]Dr. Farhat Leal EPITHELIALS Normal [facility] Comment on above: Performed By: #### G STAIN ####[facility] Caehatbeei[address] [place], [place] [address]Dr. Farhat Leal FUNGAL ELEMENTS Normal [facility] Comment on above: Performed By: #### G STAIN ####[facility] Llcraojycf[address] [place] [id number]. Farhat Leal GRAM NEG BACILLI Normal [facility] Comment on above: Performed By: #### G STAIN ####[facility] Zabpdnuqll75[address] [place] [address]Dr. Farhat Leal GRAM NEG DIPPLOCOCCI Normal [facility] Comment on above: Performed By: #### G STAIN ####[facility] Wmexipkloi[address] [place] [address]Dr. Farhat Leal GRAM POS BACILLI Normal [facility] Comment on above: Performed By: #### G STAIN ####[facility] Zfngdhlnnz[address] [place], [place] [address]Dr. Farhat Leal GRAM POSITIVE COCCI FEW Normal [facility] Comment on above: Performed By: #### G STAIN ####[facility] Nglpysreox90[address] [place], [place] [address]Dr. Farhat Leal GRAM STAIN SOURCE RT ACHILLES TENDON Normal [facility] Comment on above: Performed By: #### G STAIN ####[facility] Fdkveoghfl[address] [place], [place] [address]Dr. Farhat Leal GS_DIPTH Normal [facility] Comment on above: Performed By: #### G STAIN ####[facility] Cqkjynoeza[address] [place], [place] [address]Dr. Farhat Leal WBC RARE Normal [facility] Comment on above: Performed By: #### G STAIN ####[facility] Jctznuijfq[address] [place], [place] [address]Dr. Farhat Leal COMMENTS NO ORGANISMS OBSERVED Normal [facility] Comment on above: Performed By: #### G STAIN ####[facility] Jjnhipgltr15[address] [place] [address]Dr. Farhat Leal DIPHTHEROIDS Normal [facility] Comment on above: Performed By: #### G STAIN ####[facility] Lwdcgqixzv[address] [place] [address]Dr. Farhat Leal EPITHELIALS Normal [facility] Comment on above: Performed By: #### G STAIN ####[facility] Bwxlzcalrn2276 [place] [address]Dr. Farhat Leal FUNGAL ELEMENTS Normal [facility] Comment on above: Performed By: #### G STAIN ####[facility] Pndaaqhmht8427 [place] [address]Dr. Farhat Leal GRAM NEG BACILLI Normal [facility] Comment on above: Performed By: #### G STAIN ####[facility] Yjnfkpfssy2253 [place] [address]Dr. Farhat Leal GRAM NEG DIPPLOCOCCI Normal [facility] Comment on above: Performed By: #### G STAIN ####[facility] Bsmeueyjno[address] [place], [place] [address]Dr. Farhat Leal GRAM POS BACILLI Normal [facility] Comment on above: Performed By: #### G STAIN ####[facility] Twnesprpsf[address] [place], [place] [address]Dr. Farhat Leal GRAM POSITIVE COCCI Normal [facility] Comment on above: Performed By: #### G STAIN ####[facility] Fousrtiyin[address] [place], [place] [address]Dr. Farhat Leal GRAM STAIN SOURCE RT CALCANEOUS Normal [facility] Comment on above: Performed By: #### G STAIN ####[facility] Nxxevlpcda417[address] [place], [place] [address]Dr. Farhat Leal GS_DIPTH Normal [facility] Comment on above: Performed By: #### G STAIN ####[facility] Yrspjwgkle[address] [place], [place] [address]Dr. Farhat Leal WBC RARE Normal [facility] Comment on above: Performed By: #### G STAIN ####[facility] Hbjmtdyfxm6427 [place] [address]Dr. Farhat Leal DIPHTHEROIDS Normal [facility] Comment on above: Performed By: #### G STAIN ####[facility] Bmgpfkuisi618[address] [place], [place] [address]Dr. Farhat Leal EPITHELIALS Normal [facility] Comment on above: Performed By: #### G STAIN ####[facility] Fdvzzgpfdh684[address] [place], [place] [address]Dr. Farhat Leal FUNGAL ELEMENTS Normal [facility] Comment on above: Performed By: #### G STAIN ####[facility] Zckggybsic84[address] [place] [id number]. Farhat Leal GRAM NEG BACILLI FEW Normal [facility] Comment on above: Performed By: #### G STAIN ####[facility] Dwtpxwpswp2392 [place] [id number]. Farhat Leal GRAM NEG DIPPLOCOCCI Normal [facility] Comment on above: Performed By: #### G STAIN ####[facility] Gyaecszdwm89[address] [place] [address]Dr. Farhat Leal GRAM POS BACILLI Normal [facility] Comment on above: Performed By: #### G STAIN ####[facility] Leflgnpftk1503 [place] [address]Dr. Farhat Leal GRAM POSITIVE COCCI FEW Normal [facility] Comment on above: Performed By: #### G STAIN ####[facility] Ywuwlozghk[address] [place], [place] [address]Dr. Farhat Leal GRAM STAIN SOURCE #2 Rt foot abscess Normal [facility] Comment on above: Performed By: #### G STAIN ####[facility] Ljngmesdtz17[address] [place] [address]Dr. Farhat Leal GS_DIPTH Normal [facility] Comment on above: Performed By: #### G STAIN ####[facility] Ulspdbjyjw6382 [place] [address]Dr. Farhat Leal WBC RARE Normal [facility] Comment on above: Performed By: #### G STAIN ####[facility] Dzezqkgkqi2084 [place] [id number]. Farhat Leal DIPHTHEROIDS Normal [facility] Comment on above: Performed By: #### G STAIN ####[facility] Z[address]pbmfgyb[address] [place], [place] [address]Dr. Farhat Leal EPITHELIALS Normal [facility] Comment on above: Performed By: #### G STAIN ####[facility] Vhozkvbfwr4232 [place] [address]Dr. Farhat Leal FUNGAL ELEMENTS Normal [facility] Comment on above: Performed By: #### G STAIN ####[facility] Hqnicpaxlj3625 [place] [address]Dr. Farhat Leal GRAM NEG BACILLI FEW Normal [facility] Comment on above: Performed By: #### G STAIN ####[facility] Kxpturaukk04[address] [place] [address]Dr. Farhat Leal GRAM NEG DIPPLOCOCCI Normal [facility] Comment on above: Performed By: #### G STAIN ####[facility] Nudgjhhmip6061 [place] [address]Dr. Farhat Leal GRAM POS BACILLI Normal [facility] Comment on above: Performed By: #### G STAIN ####[facility] Tamucnmryp[address] [place], [place] [address]Dr. Farhat Leal GRAM POSITIVE COCCI FEW Normal [facility] Comment on above: Performed By: #### G STAIN ####[facility] Adkojnfred[address] [place], [place] [address]Dr. Farhat Leal GRAM STAIN SOURCE #1 Rt foot abscess Normal [facility] Comment on above: Performed By: #### G STAIN ####[facility] Wuutxymtvo413[address] [place], [place] [address]Dr. Farhat Leal GS_DIPTH Normal [facility] Comment on above: Performed By: #### G STAIN ####[facility] Bbxitxaqgk3706 [place] [address]Dr. Farhat Leal WBC NONE SEEN Normal [facility] Comment on above: Performed By: #### G STAIN ####[facility] Gwwyeufxgf4912 [place] [address]Dr. Farhat Leal POINT OF CARE GLUCOSEon 10-1 0 Glucose [Mass/Vol] 331 mg/dL Critically high 74-106 [facility] Comment on above: Performed By: #### P OCGLUC ####[facility] Ianbpjigyc3117 [place] [address]Dr. Farhat Leal Glucose [Mass/Vol] 236 mg/dL Critically high 74-106 [facility] Comment on above: Performed By: #### P OCGLUC ####[facility] Hdsivmbatf3593 [place] [address]Dr. Farhat Leal PROF 14(COMP METB)on 022 Albumin [Mass/Vol] 1.6 g/dL Critically low 3.4-5.0 [facility] Comment on above: Performed By: #### B CLIENT LIAISON, CMP, CRP ####[facility] Gwnehnizxk37[address] [place] [address]Dr. Farhat Leal Albumin/Globulin [Mass ratio] 0.4 {ratio} Normal [facility] Comment on above: Performed By: #### B CLIENT LIAISON, CMP, CRP ####[facility] Dhxylzttee4563 [place] [address]Dr. Farhat Leal ALP [Catalytic activity/Vol] 94 U/L Normal 46-116 [facility] Comment on above: Performed By: #### B CLIENT LIAISON, CMP, CRP ####[facility] Effgpouyxe6678 [place] [address]Dr. Farhat Leal ALT [Catalytic activity/Vol] 49 U/L Normal 16-63 [facility] Comment on above: Performed By: #### B CLIENT LIAISON, CMP, CRP ####[facility] Mxrelubjyp0077 [place] [address]Dr. Farhat Leal Anion gap [Moles/Vol] 12.5 mmol/L Normal [facility] Comment on above: Performed By: #### B CLIENT LIAISON, CMP, CRP ####[facility] Uhuzxwrpvh8066 [place] [address]Dr. Farhat Leal AST [Catalytic activity/Vol] 102 U/L Critically high 15-37 [facility] Comment on above: Performed By: #### B CLIENT LIAISON, CMP, CRP ####[facility] Pmbvlberes3579 [place] [address]Dr. Farhat Leal Bilirubin [Mass/Vol] 0.8 mg/dL Normal 0.2-1.0 [facility] Comment on above: Performed By: #### B CLIENT LIAISON, CMP, CRP ####[facility] Jqiodqcjix9030 [place] [address]Dr. Farhat Leal Calcium [Mass/Vol] 8.4 mg/dL Critically low 8.5-10.1 Th [facility] Comment on above: Performed By: #### B CLIENT LIAISON, CMP, CRP ####[facility] Ykzrmxsiez3978 [place] [address]Dr. Farhat Leal Chloride [Moles/Vol] 96 mmol/L Critically low 98-107 [facility] Comment on above: Performed By: #### B CLIENT LIAISON, CMP, CRP ####[facility] Opfhcjgywr0[address] [place], [place] [address]Dr. Madelynlorri Leal CO2 [Moles/Vol] 24.8 mmol/L Normal 21.0-32.0 [facility] Comment on above: Performed By: #### B CLIENT LIAISON, CMP, CRP ####[facility] Qcfajvdlcb[address] [place], [place] [address]Dr. Madelynlorri Leal Creatinine [Mass/Vol] 1.36 mg/dL Critically high 0.70-1.30 [facility] Comment on above: Performed By: #### B CLIENT LIAISON, CMP, CRP ####[facility] Spvwzlwjts[address] [place], [place] [address]Dr. Madelynlorri Elvis EGFR-AF GERMAN >60 Normal >=60 [facility] Comment on above: Performed By: #### B CLIENT LIAISON, CMP, CRP ####[facility] Qxmiclixjw101[address] [place], [place] [address]Dr. Madelynlorri Leal EGFR-NON AF GERMAN 51 mL/min/1.73m2 Critically low >=60 [facility] Comment on above: Performed By: #### B CLIENT LIAISON, CMP, CRP ####[facility] Xnbhnbxori[address] [place], [place] [address]Dr. Farhat Leal Globulin (S) [Mass/Vol] 4.1 g/dL Normal [facility] Comment on above: Performed By: #### B CLIENT LIAISON, CMP, CRP ####[facility] Lsxtovatpe[address] [place], [place] [address]Dr. Farhat Leal Glucose [Mass/Vol] 204 mg/dL Critically high 74-106 [facility] Comment on above: Performed By: #### B CLIENT LIAISON, CMP, CRP ####[facility] Fhymtixosp11[address] [place] [address]Dr. Farhat Leal Potassium [Moles/Vol] 4.3 mmol/L Normal 3.5-5.1 [facility] Comment on above: Performed By: #### B CLIENT LIAISON, CMP, CRP ####[facility] Zeeejdwxfc2326 [place] [address]Dr. Farhat Leal Protein [Mass/Vol] 5.7 g/dL Critically low 6.4-8.2 Th [facility] Comment on above: Performed By: #### B CLIENT LIAISON, CMP, CRP ####[facility] Ealizdrqjg6766 [place] [address]Dr. Farhat Leal Sodium [Moles/Vol] 129 mmol/L Critically low 136-145 Th [facility] Comment on above: Performed By: #### B CLIENT LIAISON, CMP, CRP ####[facility] [address]iozsnmfgi[address] [place], [place] [address]Dr. Farhat Leal Urea nitrogen [Mass/Vol] 41.0 mg/dL Critically high 7.0-18.0 [facility] Comment on above: Performed By: #### B CLIENT LIAISON, CMP, CRP ####[facility] Uh[address]xvwuyhx[address] [place], [place] [address]Dr. Farhat Leal Urea nitrogen/Creatinine [Mass ratio] 30.1 mg/mg Normal [facility] Comment on above: Performed By: #### B CLIENT LIAISON, CMP, CRP ####[facility] Ovhjujshos[address] [place], [place] [address]Dr. Farhat Leal PROTIMEon 11-24-2021 INR Coag (PPP) [Relative time] 2.20 {INR} Normal [facility] Comment on above: Performed By: #### P T ####[facility] Ovovqcamfq[address] [place], [place] [address]Dr. Farhat Leal INR GUIDELINES SEE BELOW Normal [facility] Comment on above: Result Comment: MALINA RED INR: 2.0 - 3.0 CONDITIONS NOT LISTED BELOW 2.5 - 3.5 FOR PROSTHETIC HEART VALVE REPLACEMENT 2.5 - 3.5 RECURRENT THROMBOSIS Performed By: #### P T ####[facility] Ubzezwsvwg[address] [place], [place] [address]Dr. Farhat Leal PT Coag (PPP) [Time] 22.6 s Critically high 9.0-11.6 [facility] Comment on above: Performed By: #### P T ####[facility] Iylpgltdml4594 [place] [address]Dr. Farhat Elvis SED RATE [facility] 2021 SED RATE 80 mm/hr Critically high <=20 The [facility] Comment on above: Performed By: #### S EDR ####[facility] Bbblupbdjk9831 [place] [address]Dr. Farhat Elvis BLOOD CULTURE ID PANELon A. baumannii Not detected Normal NOT DETECTED The [facility] Comment on above: Performed By: #### B CID2 ####[facility] Trqpiphfvm5374 [place] [address]Dr. Madelynlorri Leal Bacteriodes fragilis Not detected Normal NOT DETECTED [facility] Comment on above: Performed By: #### B CID2 ####[facility] Sarrhiaxqy4769 [place] [address]Dr. Farhat Elvis BCID CONTROLS PASSED Normal The [facility] Comment on above: Performed By: #### B CID2 ####[facility] Prgwesotqf9619 [place] [address]Dr. Farhat Elvis BCIDBTHD BLOOD CULTURE BOTTLE INFORMATION Normal [facility] Comment on above: Performed By: #### B CID2 ####[facility] Pfrrmydvjz[address] [place], [place] [address]Dr. Farhat Elvis BCIDHD1 ANTIMICROBIAL RESISTANCE GENES Normal [facility] Comment on above: Performed By: #### B CID2 ####[facility] Fryoktmsfz6332 [place] [address]Dr. Madelynlorri Leal BCIDHD2 SEE BELOW Normal [facility] Comment on above: Result Comment: Note : Antimicrobial resitance can occur via multiple mechanisms. A Not Detected result for the [employer] antomicrobial resistance gene assays does not indicate antimicrobial susceptibility. Subculturing is required for species identification and susceptibility testing of isolates. Performed By: #### B CID2 ####[facility] Zgyvekdtjs5275 [place] [id number]. Farhat Leal BCIDHD3 Positive Normal [facility] Comment on above: Performed By: #### B CID2 ####[facility] Tvktmlizie7223 [place] [id number]. Yilorri Leal BCIDHD4 Negative Normal [facility] Comment on above: Performed By: #### B CID2 ####[facility] Lgasmelaxu1948 [place] [id number]. Farhat Leal BCIDHD5 YEAST Normal [facility] Comment on above: Performed By: #### B CID2 ####[facility] Hyrfydeias8855 [place] [address]Dr. Farhat Leal Bottle Set: Set 1 Normal [facility] Comment on above: Performed By: #### B CID2 ####[facility] Jqspjkkeip1566 [place] [address]Dr. Farhat Leal Bottle: Aerobic Normal [facility] Comment on above: Performed By: #### B CID2 ####[facility] Fsvpgndadq5057 [place] [address]Dr. Farhat [facility] C. neoformans/gattii Not detected Normal NOT DETECTED [facility] Comment on above: Performed By: #### B CID2 ####[facility] Orfaaytumx[address] [place], [place] [address]Dr. Yilorri Leal Disha albicans Not detected Normal NOT DETECTED [facility] Comment on above: Performed By: #### B CID2 ####[facility] Ttfkzttsqn6065 [place] [address]Dr. Yilorri Leal Disha auris Not detected Normal NOT DETECTED [facility] Comment on above: Performed By: #### B CID2 ####[facility] Vxthfqykzl9261 [place] [address]Dr. Farhat Leal Disha glabrata Not detected Normal NOT DETECTED [facility] Comment on above: Performed By: #### B CID2 ####[facility] Iuhhrntuxu8122 [place] [address]Dr. Farhat Leal Disha Krusei Not detected Normal NOT DETECTED The [facility] Comment on above: Performed By: #### B CID2 ####[facility] Fwkexzfsuo3438 [place] [address]Dr. Yilan Leal Disha Parapsilosis Not detected Normal NOT DETECTED [facility] Comment on above: Performed By: #### B CID2 ####[facility] Ofqpqjbrrx5594 [place] [address]Dr. Yilan Leal Disha Tropicalis Not detected Normal NOT DETECTED [facility] Comment on above: Performed By: #### B CID2 ####[facility] Bbdnzuuanq[address] [place], [place] [address]Dr. Farhat Leal CTX-M Resistant Gene Not Applicable Normal NOT DETECTE D [facility] Comment on above: Performed By: #### B CID2 ####[facility] Iobwihmgtr[address] [place], [place] [address]Dr. Yilorri Leal E. Cloacae complex Not detected Normal NOT DETECTED [facility] Comment on above: Performed By: #### B CID2 ####[facility] Bwibsqjjig464[address] [place], [place] [address]Dr. Yilan Leal E. faecalis Not detected Normal NOT DETECTED [facility] Comment on above: Performed By: #### B CID2 ####[facility] Rligsqmaaj770[address] [place], [place] [address]Dr. Yilorri Leal E. faecium Not detected Normal NOT DETECTED The [facility] Comment on above: Performed By: #### B CID2 ####[facility] Fuhauwlqnu5[address] [place], [place] [address]Dr. Yilan Leal Enterobacteriaceae Not detected Normal NOT DETECTED [facility] Comment on above: Performed By: #### B CID2 ####[facility] Bkrplxxlgk[address] [place], [place] [address]Dr. Yilan Leal Escherichia coli Not detected Normal NOT DETECTED [facility] Comment on above: Performed By: #### B CID2 ####[facility] Xnjxveehid523[address] [place], [place] [address]Dr. Yilan Leal H. influenzae Not detected Normal NOT DETECTED [facility] Comment on above: Performed By: #### B CID2 ####[facility] Qvyammurfc5675 [place] [id number]. Farhat Leal IMP Resistant Gene Not Applicable Normal NOT DETECTED [facility] Comment on above: Performed By: #### B CID2 ####[facility] Tirrrepffa[address] [place], [place] [address]Dr. Farhat Leal K. oxytoca Not detected Normal NOT DETECTED [facility] Comment on above: Performed By: #### B CID2 ####[facility] Iregsurwvp[address] [place], [place] [address]Dr. Farhat Leal K. pneumoniae Not detected Normal NOT DETECTED [facility] Comment on above: Performed By: #### B CID2 ####[facility] Hnhgrmolek7[address] [place], [place] [address]Dr. Farhat Leal Klebsiella aerogenes Not detected Normal NOT DETECTED [facility] Comment on above: Performed By: #### B CID2 ####[facility] Kbjjcfwiut[address] [place], [place] [address]Dr. Farhat Leal KPC Resistant Gene Not Applicable Normal NOT DETECTED [facility] Comment on above: Performed By: #### B CID2 ####[facility] Mhdjslwpqx[address] [place], [place] [address]Dr. Madelynlorri Elvis List. monocytogenes Not detected Normal NOT DETECTED [facility] Comment on above: Performed By: #### B CID2 ####[facility] Xmfyzjbagp[address] [place], [place] [address]Dr. Farhat Leal Mcr-1 Resistant Gene Not Applicable Normal NOT DETECTE D [facility] Comment on above: Performed By: #### B CID2 ####[facility] Garkcnnjus3286 [place] [address]Dr. Madelynlan Elvis mecA/C Not Applicable Normal NOT DETECTED [facility] Comment on above: Performed By: #### B CID2 ####[facility] Szohisbngr4176 [place] [address]Dr. Farhat Leal mecA/C MREJ Detected Abnormal NOT DETECTED [facility] Comment on above: Performed By: #### B CID2 ####[facility] Iosrtcnjya[address] [place], [place] [address]Dr. Farhat Leal N. meningitidis Not detected Normal NOT DETECTED [facility] Comment on above: Performed By: #### B CID2 ####[facility] Pbntswclkb9[address] [place], [place] [address]Dr. Farhat Leal NDM Resistant Gene Not Applicable Normal NOT DETECTED [facility] Comment on above: Performed By: #### B CID2 ####[facility] Nxkwuyyngi64[address] [place], [place] [address]Dr. Farhat Leal Oxa-48-like Not Applicable Normal NOT DETECTED [facility] Comment on above: Performed By: #### B CID2 ####[facility] Tqiqogowzu88[address] [place], [place] [address]Dr. Farhat Leal Proteus Not detected Normal NOT DETECTED [facility] Comment on above: Performed By: #### B CID2 ####[facility] Mzldmydqtt367[address] [place], [place] [address]Dr. Farhat Leal Pseud. aeruginosa Not detected Normal NOT DETECTED [facility] Comment on above: Performed By: #### B CID2 ####[facility] Zmgvacdxrf010[address] [place], [place] [address]Dr. Farhat Leal S. maltophilia Not detected Normal NOT DETECTED The [facility] Comment on above: Performed By: #### B CID2 ####[facility] Koqpyrlqpq44[address] [place], [place] [address]Dr. Farhat Leal Salmonella Not detected Normal NOT DETECTED [facility] Comment on above: Performed By: #### B CID2 ####[facility] Kyjsmuloyd24[address] [place], [place] [address]Dr. Farhat Leal Seratia marcescens Not detected Normal NOT DETECTED [facility] Comment on above: Performed By: #### B CID2 ####[facility] Ixvmmpslaj98[address] [place], [place] [address]Dr. Farhat Leal Site: Rt Hand Normal [facility] Comment on above: Performed By: #### B CID2 ####[facility] Axhhuijkjy[address] [place], [place] [address]Dr. Farhat Leal Staph. aureus Detected Abnormal NOT DETECTED [facility] Comment on above: Performed By: #### B CID2 ####[facility] Cpersyhdxu6962 [place] [address]Dr. Farhat Leal Staph. epidermidis Not detected Normal NOT DETECTED [facility] Comment on above: Performed By: #### B CID2 ####[facility] Gczozatnsi39[address] [place], [place] [address]Dr. Farhat Leal Staph. lugdunensis Not detected Normal NOT DETECTED [facility] Comment on above: Performed By: #### B CID2 ####[facility] Dfjnbavmfw[address] [place], [place] [address]Dr. Farhat Leal Staphylococcus Detected Abnormal NOT DETECTED [facility] Comment on above: Performed By: #### B CID2 ####[facility] Cvremlwmbh93[address] [place], [place] [address]Dr. Farhat Leal Strep. agalactiae Not detected Normal NOT DETECTED [facility] Comment on above: Performed By: #### B CID2 ####[facility] Fectfzdlsr15[address] [place], [place] [address]Dr. Farhat Leal Strep. pneumoniae Not detected Normal NOT DETECTED [facility] Comment on above: Performed By: #### B CID2 ####[facility] Jlwzeexiwm[address] [place], [place] [address]Dr. Farhat Leal Strep. pyogenes Not detected Normal NOT DETECTED [facility] Comment on above: Performed By: #### B CID2 ####[facility] Mnjzzlilni[address] [place], [place] [address]Dr. Farhat Leal Streptococcus Not detected Normal NOT DETECTED [facility] Comment on above: Performed By: #### B CID2 ####[facility] Fnhgcepsnb[address] [place], [place] [address]Dr. Farhat Leal Teodoro/B Resist. Gene Not Applicable Normal NOT DETECTED [facility] Comment on above: Performed By: #### B CID2 ####[facility] Jdwwubjefy97[address] [place], [place] [address]Dr. Farhat Leal VIM Resistant Gene Not Applicable Normal NOT DETECTED [facility] Comment on above: Performed By: #### B CID2 ####[facility] Cvvbjycytz1560 [place] [address]Dr. Farhat Leal BNPon 11-23-2021 Natriuretic peptide B (Bld) [Mass/Vol] 55482.0 pg/mL Critically high <=1,800.0 [facility] Comment on above: Performed By: #### C MP, CMADM, BNP ####[facility] Gklvqgchld8473 [place] [address]Dr. Farhat Leal CARDIAC AMANDA ADMITon 022 CK [Catalytic activity/Vol] 41 U/L Normal 39-308 [facility] Comment on above: Performed By: #### C MP, CMADM, BNP ####[facility] Fehcgmbjvn9437 [place] [address]Dr. Farhat Leal CK.MB [Mass/Vol] 0.98 ng/mL Normal <=3.60 [facility] Comment on above: Performed By: #### C MP, CMADM, BNP ####[facility] Ilqvmxdwul2314 [place] [address]Dr. Farhat Leal HSTROP 30.1 pg/mL Normal 4.0-76.1 [facility] Comment on above: Result Comment: CUT- OFF POINTS HAVE BEEN ESTABLISHED BASED ON THE FOURTH UNIVERSAL DEFINITIONS OF MYOCARDIALINFARCTION. THE UPPER REFERENCE LIMIT (URL) OF TROPONIN, DEFINED THE 99TH PERCENTILE OFcTnI DISTRIBUTION IN A REFERENCE POPULATION, HAS BEEN CONFIRMED THE DECISION THRESHOLDFOR [place] DIAGNOSIS. Performed By: #### C MP, CMADM, BNP ####[facility] Msdhrcqbqt5526 [place] [address]Dr. Farhat Leal VALERIA 160 ng/mL Critically high 16-96 [facility] Comment on above: Performed By: #### C MP, CMADM, BNP ####[facility] Dvkmsnsumc2287 [place] [address]Dr. Farhat Leal CBC AUTO DIFFon 11-23-2021 BASO # 0.0 103/ul Normal 0.0-0.1 [facility] Comment on above: Performed By: #### C BC ####[facility] Eohouwktrb5779 [place] [id number]. Farhat Leal Basophils/100 WBC (Bld) 0.2 % Normal 0.2-2.0 [facility] Comment on above: Performed By: #### C BC ####[facility] Lfxmacgvvu1461 [place] [id number]. Farhat Leal EO # 0.0 103/ul Normal 0.0-0.7 [facility] Comment on above: Performed By: #### C BC ####[facility] [address]qu[address]ia[address] [place], [place] [address]Dr. Farhat Leal Eosinophils/100 WBC (Bld) 0.1 % Critically low 0.9-7.0 [facility] Comment on above: Performed By: #### C BC ####[facility] Flvnlefeng[address] [place], [place] [address]Dr. Farhat Leal Erythrocyte distribution width (RBC) [Ratio] 13.4 % Normal 11.0-15.0 [facility] Comment on above: Performed By: #### C BC ####[facility] Afcofsqaqi340[address] [place], [place] [address]Dr. Farhat Leal Hematocrit (Bld) [Volume fraction] 31.6 % Critically low 42.0-54.0 [facility] Comment on above: Performed By: #### C BC ####[facility] Gsnhzivaij4[address] [place], [place] [address]Dr. Farhat Leal Hemoglobin (Bld) [Mass/Vol] 10.4 g/dL Critically low 14.0-18.0 [facility] Comment on above: Performed By: #### C BC ####[facility] Okbvdtmzca[address] [place], [place] [address]Dr. Farhat Leal IG # 0.11 10e3/ul Critically high 0.00-0.03 [facility] Comment on above: Performed By: #### C BC ####[facility] Zidjbzlgef[address] [place], [place] [address]Dr. Farhat Leal IG % 0.7 % Critically high 0.0-0.5 [facility] Comment on above: Performed By: #### C BC ####[facility] Lqqjjxqjtz5399 [place] [id number]. Farhat Leal LYMPH # 0.5 103/ul Critically low 1.2-3.8 [facility] Comment on above: Performed By: #### C BC ####[facility] Xoqlltbgtv6624 [place] [id number]. Farhat Leal Lymphocytes/100 WBC (Bld) 2.8 % Critically low 20.5-60.0 [facility] Comment on above: Performed By: #### C BC ####[facility] Mpkdpxnkvy6016 [place] [phone]. Farhat Leal MANUAL DIFF REQ NO Normal [facility] Comment on above: Performed By: #### C BC ####[facility] Rzwjcrcsgg6688 [place] [phone]. Farhat Leal MCH (RBC) [Entitic mass] 29.8 pg Normal 25.9-34.0 [facility] Comment on above: Performed By: #### C BC ####[facility] Usdgqfofeo2213 [place] [id number]. Farhat Leal MCHC (RBC) [Mass/Vol] 32.9 g/dL Normal 29.9-35.2 [facility] Comment on above: Performed By: #### C BC ####[facility] Vcidnhfyve7847 [place] [id number]. Farhat Leal MCV (RBC) [Entitic vol] 90.5 fL Normal 80.0-94.0 [facility] Comment on above: Performed By: #### C BC ####[facility] Qwpyxmbhvs4939 [place] [address]Dr. Farhat Leal MONO # 1.3 103/ul Critically high 0.3-0.8 [facility] Comment on above: Performed By: #### C BC ####[facility] Bvftfpmoie3572 [place] [phone]. Farhat Lela Monocytes/100 WBC (Bld) 8.3 % Normal 1.7-12.0 [facility] Comment on above: Performed By: #### C BC ####[facility] Rvlxzhrmte9694 [place], [place] [address]Hu. Farhat Leal NEUT # 13.9 103/ul Critically high 1.4-6.5 [facility] Comment on above: Performed By: #### C BC ####[facility] Nqxfrkdkzy7573 [place], [place] [address]Mv. Farhat Leal Neutrophils/100 WBC (Bld) 87.9 % Critically high 43.0-75.0 [facility] Comment on above: Performed By: #### C BC ####[facility] Tghcyfhnne2842 [place] [phone]. Farhat Leal Platelet mean volume (Bld) [Entitic vol] 9.3 fL Critically low 9.5-13.5 [facility] Comment on above: Performed By: #### C BC ####[facility] Fhaldofrpb9017 [place] [phone]. Farhat Leal PLT 390 103/ul Normal 150-450 [facility] Comment on above: Performed By: #### C BC ####[facility] Dvjvechuqr7986 [place] [phone]. Farhat Leal RBC 3.49 106/ul Critically low 4.70-6.10 [facility] Comment on above: Performed By: #### C BC ####[facility] Tqtuevibdb1362 [place] [phone]. Farhat Leal WBC 15.9 103/ul Critically high 4.0-11.0 [facility] Comment on above: Performed By: #### C BC ####[facility] Ozgcyjtvqb4113 [place] [phone]. Farhat Leal CT HEAD WO CONon 11-23-2021 CT HEAD WO CON Normal [facility] CULTURE BLOODon 11-23-2021 Microscopic examination of blood, culture Culture Observations: NO GROWTH AT 5 DAYS. Normal [facility] Comment on above: Performed By: #### B LDCX2 ####[facility] Kjdoqvpury9560 [place] [phone]. Farhat Leal Covid-19 PCR (CVDTBH)on SARS-CoV-2 (COVID-19) RNA JOSH+probe Ql (Unsp spec) Not detected Normal NOT DETECTED [facility] Comment on above: Result Comment: When [...] for this test is supported by the [place] of [employer] and Human Service's declaration that [...] be used). Performed By: #### C VDTBH ####[facility] Iktdwrvguj0191 [place] [address]DrSkylar Leal LACTATE/LACTIC ACIDon 2021 Lactate [Moles/Vol] 1.3 mmol/L Normal 0.4-1.9 [facility] Comment on above: Performed By: #### L ACT ####[facility] Moooezujgx[address] [place], [place] [address]Dr. Farhat Leal Lactate [Moles/Vol] 1.3 mmol/L Normal 0.4-1.9 [facility] Comment on above: Performed By: #### L ACT ####[facility] Xgogcelbnl[address] [place], [place] [address]Dr. Farhat Leal POINT OF CARE GLUCOSEon Glucose [Mass/Vol] 252 mg/dL Critically high 74-106 [facility] Comment on above: Performed By: #### P OCGLUC ####[facility] Pgrcsckoye[address] [place], [place] [address]Dr. Farhat Leal PROF 14(COMP METB)on 022 Albumin [Mass/Vol] 1.6 g/dL Critically low 3.4-5.0 Th [facility] Comment on above: Performed By: #### C MP, CMADM, BNP ####[facility] Lsmxerlcoz5221 [place] [phone]. Farhat Leal Albumin/Globulin [Mass ratio] 0.4 {ratio} Normal [facility] Comment on above: Performed By: #### C MP, CMADM, BNP ####[facility] Qwwmucuson5102 [place] [address]Dr. Farhat Leal ALP [Catalytic activity/Vol] 98 U/L Normal 46-116 [facility] Comment on above: Performed By: #### C MP, CMADM, BNP ####[facility] Eayzbisyal4806 [place] [address]Dr. Farhat Leal ALT [Catalytic activity/Vol] 52 U/L Normal 16-63 [facility] Comment on above: Performed By: #### C MP, CMADM, BNP ####[facility] Tacwscitqo6222 [place] [address]Dr. Farhat Leal Anion gap [Moles/Vol] 9.8 mmol/L Normal [facility] Comment on above: Performed By: #### C MP, CMADM, BNP ####[facility] Wgsgidlooc2780 [place] [address]Dr. Farhat Leal AST [Catalytic activity/Vol] 122 U/L Critically high 15-37 [facility] Comment on above: Performed By: #### C MP, CMADM, BNP ####[facility] Uszwskbdlr9872 [place] [address]Dr. Farhat Leal Bilirubin [Mass/Vol] 0.7 mg/dL Normal 0.2-1.0 [facility] Comment on above: Performed By: #### C MP, CMADM, BNP ####[facility] Dcppyjwynh8561 [place] [address]Dr. Farhta Leal Calcium [Mass/Vol] 8.6 mg/dL Normal 8.5-10.1 [facility] Comment on above: Performed By: #### C MP, CMADM, BNP ####[facility] Zxyconbxjp0228 [place] [address]Dr. Farhat Leal Chloride [Moles/Vol] 95 mmol/L Critically low 98-107 [facility] Comment on above: Performed By: #### C MP, CMADM, BNP ####[facility] Yqmcysjaum3682 [place] [address]Dr. Farhat Leal CO2 [Moles/Vol] 29.6 mmol/L Normal 21.0-32.0 [facility] Comment on above: Performed By: #### C MP, CMADM, BNP ####[facility] Fcjdyqscum[address] [place], [place] [address]Dr. Farhat Leal Creatinine [Mass/Vol] 1.49 mg/dL Critically high 0.70-1.30 [facility] Comment on above: Performed By: #### C MP, CMADM, BNP ####[facility] Eerpjtqkdu[address] [place], [place] [address]Dr. Farhat Leal EGFR-AF GERMAN 55 mL/min/1.73m2 Critically low >=60 [facility] Comment on above: Performed By: #### C MP, CMADM, BNP ####[facility] Qpjcawhtfm[address] [place], [place] [address]Dr. Farhat Leal EGFR-NON AF GERMAN 46 mL/min/1.73m2 Critically low >=60 [facility] Comment on above: Performed By: #### C MP, CMADM, BNP ####[facility] Xqvtptemev8287 [place] [address]Dr. Farhat Leal Globulin (S) [Mass/Vol] 4.3 g/dL Normal [facility] Comment on above: Performed By: #### C MP, CMADM, BNP ####[facility] Zobwlwuwne[address] [place], [place] [address]Dr. Farhat Leal Glucose [Mass/Vol] 213 mg/dL Critically high 74-106 [facility] Comment on above: Performed By: #### C MP, CMADM, BNP ####[facility] Bcnsvitxuz0014 [place] [address]Dr. Farhat Leal Potassium [Moles/Vol] 4.4 mmol/L Normal 3.5-5.1 [facility] Comment on above: Performed By: #### C MP, CMADM, BNP ####[facility] Rebbuvmyhr8194 [place] [address]Dr. Madelynlorri Leal Protein [Mass/Vol] 5.9 g/dL Critically low 6.4-8.2 Th [facility] Comment on above: Performed By: #### C MP, CMADM, BNP ####[facility] Bdsvlheigh4555 [place] [address]Dr. Madelynlorri Leal Sodium [Moles/Vol] 130 mmol/L Critically low 136-145 Th [facility] Comment on above: Performed By: #### C MP, CMADM, BNP ####[facility] Fwcgabijyz[address] [place], [place] [address]Dr. Farhat Leal Urea nitrogen [Mass/Vol] 46.0 mg/dL Critically high 7.0-18.0 [facility] Comment on above: Performed By: #### C MP, CMADM, BNP ####[facility] Uhvdjbwtmt6113 [place] [address]Dr. Farhat Leal Urea nitrogen/Creatinine [Mass ratio] 30.9 mg/mg Normal [facility] Comment on above: Performed By: #### C MP, CMADM, BNP ####[facility] Acevxrundk[address] [place], [place] [address]Dr. Farhat Leal PROTIMEon 11-23-2021 INR Coag (PPP) [Relative time] 2.55 {INR} Normal [facility] Comment on above: Performed By: #### P TT, PT ####[facility] Hszmgymzuy[address] [place], [place] [address]Dr. Farhat Leal INR GUIDELINES SEE BELOW Normal [facility] Comment on above: Result Comment: MALINA RED INR: 2.0 - 3.0 CONDITIONS NOT LISTED BELOW 2.5 - 3.5 FOR PROSTHETIC HEART VALVE REPLACEMENT 2.5 - 3.5 RECURRENT THROMBOSIS Performed By: #### P TT, PT ####[facility] Kjvjlxaswr6084 [place] [id number]. Farhat Leal PT Coag (PPP) [Time] 25.9 s Critically high 9.0-11.6 [facility] Comment on above: Performed By: #### P TT, PT ####[facility] Ujernjtjlx5172 [place] [address]Dr. Farhat Leal PTTon 11-23-2021 aPTT Coag (Bld) [Time] 39.9 s Critically high 22.3-36. 2 [facility] Comment on above: Performed By: #### P TT, PT ####[facility] Whxhtlnulz530296 [address] [place], [place] [address]Dr. Farhat Leal XR CHEST 1 Von 11-23-2021 XR CHEST 1 V Normal [facility] XR HEEL RT 2Von 11-23-2021 XR HEEL RT 2V Normal [facility] XR FOOT RT MIN 3 VIEWSon XR FOOT RT MIN 3 VIEWS Normal [facility] US ARTERY LEG RTon US ARTERY LEG RT Normal [facility] CBC AUTO DIFFon 09-24-2021 BASO # 0.1 103/ul Normal 0.0-0.1 [facility] Comment on above: Performed By: #### C BC ####[facility] Cvkakgvuui46[address] [place], [place] [address]Dr. Farhat Leal Basophils/100 WBC (Bld) 0.7 % Normal 0.2-2.0 [facility] Comment on above: Performed By: #### C BC ####[facility] Muptrofxzx167[address] [place], [place] [address]Dr. Farhat Leal EO # 0.3 103/ul Normal 0.0-0.7 [facility] Comment on above: Performed By: #### C BC ####[facility] Ndhigazjmg9260[address] [place], [place] [address]Dr. Farhat Leal Eosinophils/100 WBC (Bld) 3.9 % Normal 0.9-7.0 [facility] Comment on above: Performed By: #### C BC ####[facility] Egqnnlzhlt604[address] [place], [place] [address]Dr. Farhat Leal Erythrocyte distribution width (RBC) [Ratio] 12.6 % Normal 11.0-15.0 [facility] Comment on above: Performed By: #### C BC ####[facility] [address]yq[address]yleh[address] [place] [address]Dr. Farhat Leal Hematocrit (Bld) [Volume fraction] 38.9 % Critically low 42.0-54.0 [facility] Comment on above: Performed By: #### C BC ####[facility] Ujnydkmzcz653[address] [place], [place] [address]Dr. Farhat Leal Hemoglobin (Bld) [Mass/Vol] 12.8 g/dL Critically low 14.0-18.0 [facility] Comment on above: Performed By: #### C BC ####[facility] Tvqbzegpbu20[address] [place], [place] [address]Dr. Farhat Leal IG # 0.10 10e3/ul Critically high 0.00-0.03 [facility] Comment on above: Performed By: #### C BC ####[facility] Xxqslmwfmy711[address] [place], [place] [address]Dr. Madelynlorri Leal IG % 1.2 % Critically high 0.0-0.5 [facility] Comment on above: Performed By: #### C BC ####[facility] Peiqyewycp0915[address] [place], [place] [address]Dr. Farhat Leal LYMPH # 2.1 103/ul Normal 1.2-3.8 [facility] Comment on above: Performed By: #### C BC ####[facility] Pcteicrbsw97[address] [place], [place] [address]Dr. Farhat Leal Lymphocytes/100 WBC (Bld) 25.9 % Normal 20.5-60.0 [facility] Comment on above: Performed By: #### C BC ####[facility] Atsveilpca1330[address] [place], [place] [address]Dr. Madelynlorri Leal MANUAL DIFF REQ NO Normal [facility] Comment on above: Performed By: #### C BC ####[facility] Ifacblwcbo37[address] [place] [address]Dr. Farhat Leal MCH (RBC) [Entitic mass] 31.1 pg Normal 25.9-34.0 [facility] Comment on above: Performed By: #### C BC ####[facility] Aqrlwbodgb2738[address] [place], [place] [address]Dr. Farhat Leal MCHC (RBC) [Mass/Vol] 32.9 g/dL Normal 29.9-35.2 [facility] Comment on above: Performed By: #### C BC ####[facility] Dguvzzakju8548[address] [place], [place] [address]Dr. Farhat Leal MCV (RBC) [Entitic vol] 94.6 fL Critically high 80.0-94.0 [facility] Comment on above: Performed By: #### C BC ####[facility] Xgljxsewed212[address] [place], [place] [address]Dr. Farhat Leal MONO # 1.2 103/ul Critically high 0.3-0.8 [facility] Comment on above: Performed By: #### C BC ####[facility] Ifqgqoxcet412[address] [place], [place] [address]Dr. Farhat Leal Monocytes/100 WBC (Bld) 14.1 % Critically high 1.7-12.0 [facility] Comment on above: Performed By: #### C BC ####[facility] Zrjmajmmfv570[address] [place], [place] [address]Dr. Farhat Leal NEUT # 4.4 103/ul Normal 1.4-6.5 [facility] Comment on above: Performed By: #### C BC ####[facility] Drkxkadmil344[address] [place], [place] [address]Dr. Farhat Elvis Neutrophils/100 WBC (Bld) 54.2 % Normal 43.0-75.0 [facility] Comment on above: Performed By: #### C BC ####[facility] Gkeoaefgqf696[address] [place], [place] [address]Dr. Farhat Leal Platelet mean volume (Bld) [Entitic vol] 9.9 fL Normal 9.5-13.5 [facility] Comment on above: Performed By: #### C BC ####[facility] Hgsomdwcgm83[address] [place] [id number]. Farhat Leal PLT 224 103/ul Normal 150-450 [facility] Comment on above: Performed By: #### C BC ####[facility] Xomvnrklwn3693 [place] [id number]. Farhat Leal RBC 4.11 106/ul Critically low 4.70-6.10 [facility] Comment on above: Performed By: #### C BC ####[facility] Lmxwsjtzmw0436 [place] [id number]. Farhat Leal WBC 8.2 103/ul Normal 4.0-11.0 [facility] Comment on above: Performed By: #### C BC ####[facility] Nignhyrdot7[address] [place] [address]Dr. Madelynlorri Leal PROF CHEM 8 (BAS METB)on Anion gap [Moles/Vol] 9.6 mmol/L Normal [facility] Comment on above: Performed By: #### B MP ####[facility] Djjcejnbts8354 [place] [address]Dr. Farhat Elvis Calcium [Mass/Vol] 8.6 mg/dL Normal 8.5-10.1 [facility] Comment on above: Performed By: #### B MP ####[facility] Iomxqgajsh6902 [place] [address]Dr. Farhat Elvis Chloride [Moles/Vol] 94 mmol/L Critically low 98-107 [facility] Comment on above: Performed By: #### B MP ####[facility] Wzepwkijmu9847 [place] [id number]. Madelynlorri Leal CO2 [Moles/Vol] 28.1 mmol/L Normal 21.0-32.0 [facility] Comment on above: Performed By: #### B MP ####[facility] Etmgojtjml6567 [place] [id number]. Farhat Elvis Creatinine [Mass/Vol] 1.91 mg/dL Critically high 0.70-1.30 [facility] Comment on above: Performed By: #### B MP ####[facility] Eyjucxddcc0422 [place] [id number]. Madelynlorri Elvis EGFR-AF GERMAN 42 mL/min/1.73m2 Critically low >=60 [facility] Comment on above: Performed By: #### B MP ####[facility] Uizubfwyft0638 [place] [id number]. Farhat Leal EGFR-NON AF GERMAN 34 mL/min/1.73m2 Critically low >=60 [facility] Comment on above: Performed By: #### B MP ####[facility] Dkxohgpsvy6748 [place] [id number]. Farhat Leal Glucose [Mass/Vol] 314 mg/dL Critically high 74-106 T [facility] Comment on above: Performed By: #### B MP ####[facility] Xdhgykilul053[address] [place], [place] [address]Dr. Farhat Leal Potassium [Moles/Vol] 4.7 mmol/L Normal 3.5-5.1 [facility] Comment on above: Performed By: #### B MP ####[facility] Jyfijlaefs2047[address] [place], [place] [address]Dr. Farhat Leal Sodium [Moles/Vol] 127 mmol/L Critically low 136-145 Th [facility] Comment on above: Performed By: #### B MP ####[facility] Uqcpyuirrc78[address] [place], [place] [id number]. Farhat Leal Urea nitrogen [Mass/Vol] 79.0 mg/dL Critically high 7.0-18.0 [facility] Comment on above: Result Comment: repe ated Performed By: #### B MP ####[facility] Habfwfsbzn065[address] [place], [place] [address]Dr. Farhat Leal Urea nitrogen/Creatinine [Mass ratio] 41.4 mg/mg Normal [facility] Comment on above: Performed By: #### B MP ####[facility] Fmyslvqctl005[address] [place], [place] [address]Dr. Farhat Leal PTT HEPARIN MONITORon 2021 aPTT Coag (Bld) [Time] 42.7 s Normal 39.5-54.2 [facility] Comment on above: Performed By: #### P TTHEP ####[facility] Grvdoeaosr3540 [place] [address]Dr. Farhat Leal aPTT Coag (Bld) [Time] 56.7 s Critically high 39.5-54. 2 [facility] Comment on above: Performed By: #### P TTHEP ####[facility] Koncliepbm740[address] [place], [place] [address]Dr. Farhat Leal CBC AUTO DIFFon 09-23-2021 BASO # 0.1 103/ul Normal 0.0-0.1 [facility] Comment on above: Performed By: #### C BC ####[facility] Gjnkrmdcew1916[address] [place], [place] [address]Dr. Farhat Leal Basophils/100 WBC (Bld) 0.6 % Normal 0.2-2.0 [facility] Comment on above: Performed By: #### C BC ####[facility] Hlijzcknae437[address] [place], [place] [address]Dr. Farhat Leal EO # 0.2 103/ul Normal 0.0-0.7 [facility] Comment on above: Performed By: #### C BC ####[facility] Xvvbejukzq334[address] [place], [place] [address]Dr. Farhat Leal Eosinophils/100 WBC (Bld) 2.6 % Normal 0.9-7.0 [facility] Comment on above: Performed By: #### C BC ####[facility] Zesjnkeamw7224[address] [place], [place] [address]Dr. Farhat Leal Erythrocyte distribution width (RBC) [Ratio] 12.4 % Normal 11.0-15.0 [facility] Comment on above: Performed By: #### C BC ####[facility] Qfqgzceumc1626[address] [place], [place] [address]Dr. Farhat Leal Hematocrit (Bld) [Volume fraction] 38.4 % Critically low 42.0-54.0 [facility] Comment on above: Performed By: #### C BC ####[facility] Twkacloywt8931 [place] [address]Dr. Farhat Leal Hemoglobin (Bld) [Mass/Vol] 12.8 g/dL Critically low 14.0-18.0 [facility] Comment on above: Performed By: #### C BC ####[facility] Krndyeewfn7488 [place] [id number]. Farhat Leal IG # 0.06 10e3/ul Critically high 0.00-0.03 [facility] Comment on above: Performed By: #### C BC ####[facility] Pwhunzumyg7780 [place] [id number]. Farhat Leal IG % 0.8 % Critically high 0.0-0.5 [facility] Comment on above: Performed By: #### C BC ####[facility] Zpwadeuxeu768[address] [place], [place] [address]Dr. Farhat Leal LYMPH # 1.5 103/ul Normal 1.2-3.8 [facility] Comment on above: Performed By: #### C BC ####[facility] Nveclzurwx719[address] [place], [place] [address]Dr. Farhat Leal Lymphocytes/100 WBC (Bld) 19.7 % Critically low 20.5-60.0 [facility] Comment on above: Performed By: #### C BC ####[facility] Gclzrutorr3184 [place] [address]Dr. Farhat Leal MANUAL DIFF REQ NO Normal [facility] Comment on above: Performed By: #### C BC ####[facility] Vstlvamduo3769 [place] [address]Dr. Farhat Leal MCH (RBC) [Entitic mass] 31.6 pg Normal 25.9-34.0 [facility] Comment on above: Performed By: #### C BC ####[facility] Nrnxefvgom2636[address] [place], [place] [address]Dr. Farhat Leal MCHC (RBC) [Mass/Vol] 33.3 g/dL Normal 29.9-35.2 [facility] Comment on above: Performed By: #### C BC ####[facility] Jdaaxixdnn5367 [place] [id number]. Farhat Leal MCV (RBC) [Entitic vol] 94.8 fL Critically high 80.0-94.0 [facility] Comment on above: Performed By: #### C BC ####[facility] Hgysdoxuvw4694 [place] [id number]. Farhat Leal MONO # 1.0 103/ul Critically high 0.3-0.8 [facility] Comment on above: Performed By: #### C BC ####[facility] Sgdoqjmtcr7375 [place] [id number]. Farhat Leal Monocytes/100 WBC (Bld) 13.0 % Critically high 1.7-12.0 [facility] Comment on above: Performed By: #### C BC ####[facility] Uddqgrbvcw45119[address] [place], [place] [address]Dr. Farhat Leal NEUT # 4.9 103/ul Normal 1.4-6.5 [facility] Comment on above: Performed By: #### C BC ####[facility] Sompxsiivd5027[address] [place], [place] [address]Dr. Farhat Leal Neutrophils/100 WBC (Bld) 63.3 % Normal 43.0-75.0 [facility] Comment on above: Performed By: #### C BC ####[facility] Htgrmyprdn3112 [place] [id number]. Farhat Leal Platelet mean volume (Bld) [Entitic vol] 10.7 fL Normal 9.5-13.5 [facility] Comment on above: Performed By: #### C BC ####[facility] Ucrwdyrdwk2508 [place] [id number]. Farhat Leal PLT 205 103/ul Normal 150-450 [facility] Comment on above: Performed By: #### C BC ####[facility] Zivfexbwoc[address] [place], [place] [address]Dr. Farhat Leal RBC 4.05 106/ul Critically low 4.70-6.10 [facility] Comment on above: Performed By: #### C BC ####[facility] Tjtotraayk6440 [place] [address]Dr. Farhat Elvis WBC 7.7 103/ul Normal 4.0-11.0 [facility] Comment on above: Performed By: #### C BC ####[facility] Gjmquvzpww9424[address] [place], [place] [address]Dr. Madelynlorri Leal PROF CHEM 8 (BAS METB)on Anion gap [Moles/Vol] 15.5 mmol/L Normal [facility] Comment on above: Performed By: #### B MP ####[facility] Hggpviyeqs325[address] [place], [place] [address]Dr. Farhat Leal Calcium [Mass/Vol] 9.1 mg/dL Normal 8.5-10.1 [facility] Comment on above: Performed By: #### B MP ####[facility] Jirdfoexmz460[address] [place], [place] [address]Dr. Farhat Leal Chloride [Moles/Vol] 92 mmol/L Critically low 98-107 [facility] Comment on above: Performed By: #### B MP ####[facility] Lcmuosttiy506[address] [place], [place] [address]Dr. Farhat Leal CO2 [Moles/Vol] 28.5 mmol/L Normal 21.0-32.0 [facility] Comment on above: Performed By: #### B MP ####[facility] Qvokuaoorg597[address] [place], [place] [address]Dr. Farhat Leal Creatinine [Mass/Vol] 1.84 mg/dL Critically high 0.70-1.30 [facility] Comment on above: Performed By: #### B MP ####[facility] Yvirpgwwvn890396 [address] [place], [place] [address]Dr. Farhat Leal EGFR-AF GERMAN 44 mL/min/1.73m2 Critically low >=60 [facility] Comment on above: Performed By: #### B MP ####[facility] Drsrdmmqlz5723[address] [place], [place] [address]Dr. Farhat Leal EGFR-NON AF GERMAN 36 mL/min/1.73m2 Critically low >=60 [facility] Comment on above: Performed By: #### B MP ####[facility] Xrtkhssawe5202 [place] [address]Dr. Farhat Leal Glucose [Mass/Vol] 267 mg/dL Critically high 74-106 T [facility] Comment on above: Performed By: #### B MP ####[facility] Lgqjjobqxm6291 [place] [address]Dr. Farhat Leal Potassium [Moles/Vol] 5.0 mmol/L Normal 3.5-5.1 [facility] Comment on above: Performed By: #### B MP ####[facility] Gqgvezrdhj6522[address] [place], [place] [address]Dr. Farhat Leal Sodium [Moles/Vol] 131 mmol/L Critically low 136-145 Th [facility] Comment on above: Performed By: #### B MP ####[facility] Hsionbvpri077396 [address] [place], [place] [address]Dr. Farhat Leal Urea nitrogen [Mass/Vol] 76.0 mg/dL Critically high 7.0-18.0 [facility] Comment on above: Performed By: #### B MP ####[facility] Daeslxicfw966396 [address] [place], [place] [address]Dr. Farhat Leal Urea nitrogen/Creatinine [Mass ratio] 41.3 mg/mg Normal [facility] Comment on above: Performed By: #### B MP ####[facility] Moyamrvdej9968[address] [place], [place] [address]Dr. Farhat Leal PTT HEPARIN MONITORon 2021 aPTT Coag (Bld) [Time] 57.2 s Critically high 39.5-54. 2 [facility] Comment on above: Performed By: #### P TTHEP ####[facility] Yedvjkatmc5835[address] [place], [place] [address]Dr. Farhat Leal aPTT Coag (Bld) [Time] 74.7 s Critically high 39.5-54. 2 [facility] Comment on above: Result Comment: repe ated Performed By: #### P TTHEP ####[facility] Qugyrdatky539[address] [place], [place] [address]Dr. Farhat Leal aPTT Coag (Bld) [Time] 45.5 s Normal 39.5-54.2 [facility] Comment on above: Performed By: #### P TTHEP ####[facility] Ijmjcgvhlt5747[address] [place], [place] [address]Dr. Farhat Leal CBC AUTO DIFFon 09-22-2021 BASO # 0.1 103/ul Normal 0.0-0.1 [facility] Comment on above: Performed By: #### C BC ####[facility] Xctuxmeekd421[address] [place], [place] [address]Dr. Farhat Elvis Basophils/100 WBC (Bld) 0.7 % Normal 0.2-2.0 [facility] Comment on above: Performed By: #### C BC ####[facility] Yquqvoxpmo6544[address] [place], [place] [address]Dr. Farhat Leal EO # 0.3 103/ul Normal 0.0-0.7 [facility] Comment on above: Performed By: #### C BC ####[facility] Vwxnscruvu2733[address] [place], [place] [address]Dr. Madelynlorri Leal Eosinophils/100 WBC (Bld) 3.2 % Normal 0.9-7.0 [facility] Comment on above: Performed By: #### C BC ####[facility] Jvjlgqmkbl804[address] [place], [place] [address]Dr. Farhat Leal Erythrocyte distribution width (RBC) [Ratio] 12.5 % Normal 11.0-15.0 [facility] Comment on above: Performed By: #### C BC ####[facility] Yarxeytwxd640[address] [place], [place] [address]Dr. Madelynlorri Leal Hematocrit (Bld) [Volume fraction] 40.5 % Critically low 42.0-54.0 [facility] Comment on above: Performed By: #### C BC ####[facility] Soydvnllpp634[address] [place], [place] [address]Dr. Farhat Leal Hemoglobin (Bld) [Mass/Vol] 13.4 g/dL Critically low 14.0-18.0 [facility] Comment on above: Performed By: #### C BC ####[facility] Ctqmmpfzbd5817 [place] [id number]. Farhat Leal IG # 0.11 10e3/ul Critically high 0.00-0.03 [facility] Comment on above: Performed By: #### C BC ####[facility] Jqnaspztog2946 [place] [id number]. Farhat Leal IG % 1.3 % Critically high 0.0-0.5 [facility] Comment on above: Performed By: #### C BC ####[facility] Ifwzwzoogr3837 [place] [id number]. Farhat Leal LYMPH # 1.7 103/ul Normal 1.2-3.8 [facility] Comment on above: Performed By: #### C BC ####[facility] Dvelhjfmce5080 [place] [address]Dr. Madelynlorri Leal Lymphocytes/100 WBC (Bld) 19.6 % Critically low 20.5-60.0 [facility] Comment on above: Performed By: #### C BC ####[facility] Dkzbgqslzr7256 [place] [address]Dr. Farhat Leal MANUAL DIFF REQ NO Normal [facility] Comment on above: Performed By: #### C BC ####[facility] Irbadfsvsh7963 [place] [address]Dr. Farhat Leal MCH (RBC) [Entitic mass] 31.1 pg Normal 25.9-34.0 [facility] Comment on above: Performed By: #### C BC ####[facility] Qcuwswxynr1146 [place] [address]Dr. Farhat Leal MCHC (RBC) [Mass/Vol] 33.1 g/dL Normal 29.9-35.2 [facility] Comment on above: Performed By: #### C BC ####[facility] Tblkwaoqjx5044 [place] [address]Dr. Farhat Leal MCV (RBC) [Entitic vol] 94.0 fL Normal 80.0-94.0 [facility] Comment on above: Performed By: #### C BC ####[facility] Fdincyboai7865 [place] [id number]. Farhat Leal MONO # 1.1 103/ul Critically high 0.3-0.8 [facility] Comment on above: Performed By: #### C BC ####[facility] Lvohlgzezf4454 [place] [id number]. Farhat Leal Monocytes/100 WBC (Bld) 12.7 % Critically high 1.7-12.0 [facility] Comment on above: Performed By: #### C BC ####[facility] Kfsquiwtdz9521 [place] [id number]. Farhat Leal NEUT # 5.3 103/ul Normal 1.4-6.5 [facility] Comment on above: Performed By: #### C BC ####[facility] Qntthwoewx8945 [place] [id number]. Farhat Leal Neutrophils/100 WBC (Bld) 62.5 % Normal 43.0-75.0 [facility] Comment on above: Performed By: #### C BC ####[facility] Eatkknhnex7714 [place] [id number]. Farhat Leal Platelet mean volume (Bld) [Entitic vol] 10.1 fL Normal 9.5-13.5 [facility] Comment on above: Performed By: #### C BC ####[facility] Xnltpwelcy0664 [place] [id number]. Farhat Leal PLT 220 103/ul Normal 150-450 [facility] Comment on above: Performed By: #### C BC ####[facility] Bnkgydqxmo3853 [place] [id number]. Farhat Leal RBC 4.31 106/ul Critically low 4.70-6.10 [facility] Comment on above: Performed By: #### C BC ####[facility] Lgclmblckp4143 [place] [id number]. Farhat Leal WBC 8.4 103/ul Normal 4.0-11.0 [facility] Comment on above: Performed By: #### C BC ####[facility] Fqbvyptyao2561 [place] [address]Dr. Farhat Leal PROF CHEM 8 (BAS METB)on Anion gap [Moles/Vol] 15.5 mmol/L Normal [facility] Comment on above: Performed By: #### B MP ####[facility] Rmkmqfbjdg427[address] [place], [place] [address]Dr. Farhat Leal Calcium [Mass/Vol] 8.9 mg/dL Normal 8.5-10.1 [facility] Comment on above: Performed By: #### B MP ####[facility] Doxormwcvd7790[address] [place], [place] [address]Dr. Farhat Leal Chloride [Moles/Vol] 92 mmol/L Critically low 98-107 [facility] Comment on above: Performed By: #### B MP ####[facility] Xnphfcngby490[address] [place], [place] [address]Dr. Farhat Leal CO2 [Moles/Vol] 25.7 mmol/L Normal 21.0-32.0 [facility] Comment on above: Performed By: #### B MP ####[facility] Dihyhejhvf138[address] [place], [place] [address]Dr. Farhat Leal Creatinine [Mass/Vol] 1.85 mg/dL Critically high 0.70-1.30 [facility] Comment on above: Performed By: #### B MP ####[facility] Hynjqsxnng9399[address] [place], [place] [address]Dr. Farhat Leal EGFR-AF GERMAN 43 mL/min/1.73m2 Critically low >=60 [facility] Comment on above: Performed By: #### B MP ####[facility] Uusotxehvh7401[address] [place], [place] [address]Dr. Farhat Leal EGFR-NON AF GERMAN 36 mL/min/1.73m2 Critically low >=60 [facility] Comment on above: Performed By: #### B MP ####[facility] Kkaavqhxau698[address] [place], [place] [address]Dr. Farhat Leal Glucose [Mass/Vol] 410 mg/dL Critically high 74-106 [facility] Comment on above: Performed By: #### B MP ####[facility] Aehexiwdos700[address] [place], [place] [address]Dr. Farhat Leal Potassium [Moles/Vol] 5.2 mmol/L Critically high 3.5-5.1 [facility] Comment on above: Performed By: #### B MP ####[facility] Mhsjffubbj34[address] [place], [place] [address]Dr. Farhat Leal Sodium [Moles/Vol] 128 mmol/L Critically low 136-145 Th [facility] Comment on above: Performed By: #### B MP ####[facility] Hjxiaoodej2416[address] [place], [place] [address]Dr. Farhat Leal Urea nitrogen [Mass/Vol] 75.0 mg/dL Critically high 7.0-18.0 [facility] Comment on above: Performed By: #### B MP ####[facility] Qqwgvwermo885[address] [place], [place] [address]Dr. Farhat Leal Urea nitrogen/Creatinine [Mass ratio] 40.5 mg/mg Normal [facility] Comment on above: Performed By: #### B MP ####[facility] Eloqgdgtsn3875[address] [place], [place] [address]Dr. Farhat Leal PTT HEPARIN MONITORon 2021 aPTT Coag (Bld) [Time] 51.2 s Normal 39.5-54.2 Th [facility] Comment on above: Performed By: #### P TTHEP ####[facility] Atjgxzehqn1804[address] [place], [place] [address]Dr. Farhat Leal aPTT Coag (Bld) [Time] 55.6 s Critically high 39.5-54. 2 [facility] Comment on above: Performed By: #### P TTHEP ####[facility] Fwugouprgd527[address] [place], [place] [address]Dr. Farhat Leal aPTT Coag (Bld) [Time] 46.1 s Normal 39.5-54.2 Th [facility] Comment on above: Performed By: #### P TTHEP ####[facility] Ewnjlsjsza94[address] [place], [place] [address]Dr. Farhat Leal aPTT Coag (Bld) [Time] 53.8 s Normal 39.5-54.2 [facility] Comment on above: Performed By: #### P TTHEP ####[facility] Xiijhezorq7147 [place] [id number]. Farhat Leal CBC AUTO DIFFon 09-21-2021 BASO # 0.1 103/ul Normal 0.0-0.1 [facility] Comment on above: Performed By: #### C BC ####[facility] Tzlxmqybya197[address] [place], [place] [address]Dr. Farhat Elvis Basophils/100 WBC (Bld) 0.8 % Normal 0.2-2.0 [facility] Comment on above: Performed By: #### C BC ####[facility] Nrklugodtm74[address] [place], [place] [address]Dr. Farhat Leal EO # 0.4 103/ul Normal 0.0-0.7 [facility] Comment on above: Performed By: #### C BC ####[facility] [address] [place], [place] [address]Dr. Farhat Leal Eosinophils/100 WBC (Bld) 4.3 % Normal 0.9-7.0 [facility] Comment on above: Performed By: #### C BC ####[facility] [address] [place], [place] [id number]. Farhat Leal Erythrocyte distribution width (RBC) [Ratio] 12.5 % Normal 11.0-15.0 [facility] Comment on above: Performed By: #### C BC ####[facility] Uplqzzsicu[address] [place], [place] [id number]. Farhat Leal Hematocrit (Bld) [Volume fraction] 40.8 % Critically low 42.0-54.0 [facility] Comment on above: Performed By: #### C BC ####[facility] Zjrubpaiiy[address] [place], [place] [address]Dr. Farhat Leal Hemoglobin (Bld) [Mass/Vol] 13.5 g/dL Critically low 14.0-18.0 [facility] Comment on above: Performed By: #### C BC ####[facility] Ocetbfqrac5752 [place] [id number]. Farhat Leal IG # 0.10 10e3/ul Critically high 0.00-0.03 [facility] Comment on above: Performed By: #### C BC ####[facility] Elibjihceb8095 [place] [id number]. Farhat Leal IG % 1.2 % Critically high 0.0-0.5 [facility] Comment on above: Performed By: #### C BC ####[facility] Umjoomtneh5210 [place] [address]Dr. Farhat Leal LYMPH # 1.3 103/ul Normal 1.2-3.8 [facility] Comment on above: Performed By: #### C BC ####[facility] Bvjhqgszqb9972 [place] [address]Dr. Farhat Leal Lymphocytes/100 WBC (Bld) 15.4 % Critically low 20.5-60.0 [facility] Comment on above: Performed By: #### C BC ####[facility] Bzzgoufdbr9567 [place] [address]Dr. Farhat Leal MANUAL DIFF REQ NO Normal [facility] Comment on above: Performed By: #### C BC ####[facility] Uywmqwgsgl9990 [place] [address]Dr. Farhat Leal MCH (RBC) [Entitic mass] 31.0 pg Normal 25.9-34.0 [facility] Comment on above: Performed By: #### C BC ####[facility] Tdxbcqcxyz[address] [place], [place] [address]Dr. Farhat Leal MCHC (RBC) [Mass/Vol] 33.1 g/dL Normal 29.9-35.2 [facility] Comment on above: Performed By: #### C BC ####[facility] Hzxtgvrofj8575 [place] [address]Dr. Farhat Leal MCV (RBC) [Entitic vol] 93.8 fL Normal 80.0-94.0 [facility] Comment on above: Performed By: #### C BC ####[facility] Alkfopvpbb9375 [place] [id number]. Farhat Leal MONO # 1.2 103/ul Critically high 0.3-0.8 [facility] Comment on above: Performed By: #### C BC ####[facility] Cmejbpdaec2855 [place] [id number]. Farhat Leal Monocytes/100 WBC (Bld) 13.6 % Critically high 1.7-12.0 [facility] Comment on above: Performed By: #### C BC ####[facility] Zhdoygspfj2614 [place] [id number]. Farhat Leal NEUT # 5.5 103/ul Normal 1.4-6.5 [facility] Comment on above: Performed By: #### C BC ####[facility] Cywfzceutq7260 [place] [id number]. Farhat Leal Neutrophils/100 WBC (Bld) 64.7 % Normal 43.0-75.0 [facility] Comment on above: Performed By: #### C BC ####[facility] Dmfwkswdae3717 [place] [id number]. Farhat Leal Platelet mean volume (Bld) [Entitic vol] 9.8 fL Normal 9.5-13.5 [facility] Comment on above: Performed By: #### C BC ####[facility] Mzmyeirhln3772 [place] [id number]. Farhat Leal PLT 206 103/ul Normal 150-450 [facility] Comment on above: Performed By: #### C BC ####[facility] Orekqmnxqw6064 [place] [id number]. Farhat Leal RBC 4.35 106/ul Critically low 4.70-6.10 [facility] Comment on above: Performed By: #### C BC ####[facility] Oqahwvjcwp6865 [place] [id number]. Farhat Leal WBC 8.4 103/ul Normal 4.0-11.0 [facility] Comment on above: Performed By: #### C BC ####[facility] Hveuwdpmch3984 [place] [address]Dr. Farhat Leal PROF CHEM 8 (BAS METB)on Anion gap [Moles/Vol] 12.3 mmol/L Normal [facility] Comment on above: Performed By: #### B MP ####[facility] Qaptbbtpos0684 [place] [address]Dr. Farhat Leal Calcium [Mass/Vol] 8.6 mg/dL Normal 8.5-10.1 [facility] Comment on above: Performed By: #### B MP ####[facility] Aeiykdmyoj[address] [place], [place] [address]Dr. Farhat Leal Chloride [Moles/Vol] 94 mmol/L Critically low 98-107 [facility] Comment on above: Performed By: #### B MP ####[facility] Mndxoypimm8[address] [place], [place] [address]Dr. Farhat Leal CO2 [Moles/Vol] 30.8 mmol/L Normal 21.0-32.0 [facility] Comment on above: Performed By: #### B MP ####[facility] Hqymjhwpky48[address] [place], [place] [address]Dr. Farhat Leal Creatinine [Mass/Vol] 1.99 mg/dL Critically high 0.70-1.30 [facility] Comment on above: Performed By: #### B MP ####[facility] Ennbreihop67[address] [place], [place] [address]Dr. Farhat Leal EGFR-AF GERMAN 40 mL/min/1.73m2 Critically low >=60 [facility] Comment on above: Performed By: #### B MP ####[facility] Xsiujgbhfx004[address] [place], [place] [address]Dr. Farhat Leal EGFR-NON AF GERMAN 33 mL/min/1.73m2 Critically low >=60 [facility] Comment on above: Performed By: #### B MP ####[facility] Vdxnptkmez[address] [place], [place] [address]Dr. Farhat Leal Glucose [Mass/Vol] 264 mg/dL Critically high 74-106 [facility] Comment on above: Performed By: #### B MP ####[facility] Febpbvnixx067[address] [place], [place] [address]Dr. Farhat Leal Potassium [Moles/Vol] 5.1 mmol/L Normal 3.5-5.1 [facility] Comment on above: Performed By: #### B MP ####[facility] Cysiqiodyi0126[address] [place], [place] [address]Dr. Farhat Leal Sodium [Moles/Vol] 132 mmol/L Critically low 136-145 [facility] Comment on above: Performed By: #### B MP ####[facility] Dcyjrpvtzt788[address] [place], [place] [address]Dr. Farhat Leal Urea nitrogen [Mass/Vol] 72.0 mg/dL Critically high 7.0-18.0 [facility] Comment on above: Performed By: #### B MP ####[facility] Vbzorjnbbz677[address] [place], [place] [address]Dr. Farhat Leal Urea nitrogen/Creatinine [Mass ratio] 36.2 mg/mg Normal [facility] Comment on above: Performed By: #### B MP ####[facility] Gnnbnkwawp7967[address] [place], [place] [address]Dr. Farhat Leal PTT HEPARIN MONITORon 2021 aPTT Coag (Bld) [Time] 45.3 s Normal 39.5-54.2 [facility] Comment on above: Performed By: #### P TTHEP ####[facility] Jgdhnifpbf003[address] [place], [place] [address]Dr. Farhat Leal aPTT Coag (Bld) [Time] 68.0 s Critically high 39.5-54. 2 [facility] Comment on above: Performed By: #### P TTHEP ####[facility] Akqvfeqsjc96[address] [place], [place] [address]Dr. Farhat Leal aPTT Coag (Bld) [Time] 69.4 s Critically high 39.5-54. 2 [facility] Comment on above: Performed By: #### P TTHEP ####[facility] Xhgggfiecm509[address] [place], [place] [address]Dr. Farhat Leal aPTT Coag (Bld) [Time] 53.5 s Normal 39.5-54.2 [facility] Comment on above: Performed By: #### P TTHEP ####[facility] Durdvayeaf01[address] [place], [place] [address]Dr. Farhat Elvis aPTT Coag (Bld) [Time] 126.9 s Critically high 39.5-54. 2 [facility] Comment on above: Performed By: #### P TTHEP ####[facility] Hhpxhvnhis[address] [place], [place] [address]Dr. Farhat Elvis CBC AUTO DIFFon 09-20-2021 BASO # 0.1 103/ul Normal 0.0-0.1 [facility] Comment on above: Performed By: #### C BC ####[facility] Flohpjbgjc9620[address] [place], [place] [address]Dr. Farhat Leal Basophils/100 WBC (Bld) 0.7 % Normal 0.2-2.0 [facility] Comment on above: Performed By: #### C BC ####[facility] Vutwnhlmbq938[address] [place], [place] [address]Dr. Madelynlorri Leal EO # 0.2 103/ul Normal 0.0-0.7 [facility] Comment on above: Performed By: #### C BC ####[facility] Ausjwcihzg033[address] [place], [place] [address]Dr. Farhat Leal Eosinophils/100 WBC (Bld) 3.2 % Normal 0.9-7.0 [facility] Comment on above: Performed By: #### C BC ####[facility] Ygmbodbijp217[address] [place], [place] [address]Dr. Farhat Leal Erythrocyte distribution width (RBC) [Ratio] 12.4 % Normal 11.0-15.0 [facility] Comment on above: Performed By: #### C BC ####[facility] Wiusuqxitj284[address] [place], [place] [address]Dr. Farhat Leal Hematocrit (Bld) [Volume fraction] 40.1 % Critically low 42.0-54.0 [facility] Comment on above: Performed By: #### C BC ####[facility] Eirhoetxqb5047 [place] [id number]. Farhat Leal Hemoglobin (Bld) [Mass/Vol] 13.4 g/dL Critically low 14.0-18.0 [facility] Comment on above: Performed By: #### C BC ####[facility] Sebutvytgd4677 [place] [id number]. Farhat Leal IG # 0.08 10e3/ul Critically high 0.00-0.03 [facility] Comment on above: Performed By: #### C BC ####[facility] Htvfwomyqh1309 [place] [id number]. Farhat Leal IG % 1.1 % Critically high 0.0-0.5 [facility] Comment on above: Performed By: #### C BC ####[facility] Drdktvimqa7136 [place] [address]Dr. Farhat Leal LYMPH # 1.3 103/ul Normal 1.2-3.8 [facility] Comment on above: Performed By: #### C BC ####[facility] Ewjqmdzvld9297 [place] [address]Dr. Farhat Leal Lymphocytes/100 WBC (Bld) 17.3 % Critically low 20.5-60.0 [facility] Comment on above: Performed By: #### C BC ####[facility] Jvtxhpdjti7874 [place] [address]Dr. Farhat Leal MANUAL DIFF REQ NO Normal [facility] Comment on above: Performed By: #### C BC ####[facility] Igohpjiqye2851 [place] [id number]. Farhat Leal MCH (RBC) [Entitic mass] 31.2 pg Normal 25.9-34.0 [facility] Comment on above: Performed By: #### C BC ####[facility] Pxciwhmtua0872 [place] [id number]. Farhat Leal MCHC (RBC) [Mass/Vol] 33.4 g/dL Normal 29.9-35.2 [facility] Comment on above: Performed By: #### C BC ####[facility] Glrqwvsvbe0622 [place] [id number]. Farhat Leal MCV (RBC) [Entitic vol] 93.3 fL Normal 80.0-94.0 [facility] Comment on above: Performed By: #### C BC ####[facility] Jeirwqtbaz3279 [place] [id number]. Farhat Leal MONO # 0.9 103/ul Critically high 0.3-0.8 [facility] Comment on above: Performed By: #### C BC ####[facility] Slripjutjy6297 [place] [id number]. Farhat Leal Monocytes/100 WBC (Bld) 12.4 % Critically high 1.7-12.0 [facility] Comment on above: Performed By: #### C BC ####[facility] Xuguifvaoh8[address] [place], [place] [address]Dr. Farhat Leal NEUT # 4.7 103/ul Normal 1.4-6.5 [facility] Comment on above: Performed By: #### C BC ####[facility] Hkxwiaxmke[address] [place], [place] [address]Dr. Farhat Leal Neutrophils/100 WBC (Bld) 65.3 % Normal 43.0-75.0 [facility] Comment on above: Performed By: #### C BC ####[facility] Vjrxxulvli027[address] [place], [place] [address]Dr. Farhat Leal Platelet mean volume (Bld) [Entitic vol] 9.9 fL Normal 9.5-13.5 [facility] Comment on above: Performed By: #### C BC ####[facility] Feqrsjadbl0867 [place] [id number]. Farhat Leal PLT 180 103/ul Normal 150-450 [facility] Comment on above: Performed By: #### C BC ####[facility] Bydvxjvzdj2944 [place] [id number]. Farhat Leal RBC 4.30 106/ul Critically low 4.70-6.10 [facility] Comment on above: Performed By: #### C BC ####[facility] Culqrmudvc2896 [place] [address]Dr. Farhat Leal WBC 7.2 103/ul Normal 4.0-11.0 [facility] Comment on above: Performed By: #### C BC ####[facility] Kowavwkftq[address] [place], [place] [address]Dr. Farhat Elvis PTT HEPARIN MONITORon 2021 aPTT Coag (Bld) [Time] 26.7 s Critically low 39.5-54.2 [facility] Comment on above: Performed By: #### P TTHEP ####[facility] Dgvfmesykc265[address] [place], [place] [address]Dr. Farhat Elvis aPTT Coag (Bld) [Time] 121.0 s Critically high 39.5-54. 2 [facility] Comment on above: Performed By: #### P TTHEP ####[facility] Juxxofyxcc[address] [place], [place] [address]Dr. Farhat Elvis aPTT Coag (Bld) [Time] 27.6 s Critically low 39.5-54.2 [facility] Comment on above: Performed By: #### P TTHEP ####[facility] Snijdsxxuj35[address] [place], [place] [address]Dr. Farhat Elvis aPTT Coag (Bld) [Time] 139.0 s Critically high 39.5-54. 2 [facility] Comment on above: Performed By: #### P TTHEP ####[facility] Kiaftkywjj20[address] [place], [place] [address]Dr. Farhat Elvis CBC AUTO DIFFon 09-19-2021 BASO # 0.0 103/ul Normal 0.0-0.1 [facility] Comment on above: Performed By: #### C BC ####[facility] Anuqbkvvji185[address] [place], [place] [address]Dr. Farhat Leal Basophils/100 WBC (Bld) 0.5 % Normal 0.2-2.0 [facility] Comment on above: Performed By: #### C BC ####[facility] Znnwycloxq6481 [place] [id number]. Farhat Leal EO # 0.2 103/ul Normal 0.0-0.7 [facility] Comment on above: Performed By: #### C BC ####[facility] Uckwxtzkli8502 [place] [id number]. Farhat Leal Eosinophils/100 WBC (Bld) 2.6 % Normal 0.9-7.0 [facility] Comment on above: Performed By: #### C BC ####[facility] Iljpfxoahq7266 [place] [address]Dr. Farhat Leal Erythrocyte distribution width (RBC) [Ratio] 12.5 % Normal 11.0-15.0 [facility] Comment on above: Performed By: #### C BC ####[facility] Bbfbityroq7835 [place] [address]Dr. Farhat Leal Hematocrit (Bld) [Volume fraction] 39.2 % Critically low 42.0-54.0 [facility] Comment on above: Performed By: #### C BC ####[facility] Uiysykbtyf6714 [place] [address]Dr. Farhat Leal Hemoglobin (Bld) [Mass/Vol] 13.3 g/dL Critically low 14.0-18.0 [facility] Comment on above: Performed By: #### C BC ####[facility] Czgxjanjxs8572 [place] [id number]. Farhat Leal IG # 0.08 10e3/ul Critically high 0.00-0.03 [facility] Comment on above: Performed By: #### C BC ####[facility] Hepvjbmxsu1884 [place] [id number]. Farhat Leal IG % 0.9 % Critically high 0.0-0.5 [facility] Comment on above: Performed By: #### C BC ####[facility] Vaqedxsefq4506 [place] [address]Dr. Farhat Leal LYMPH # 1.5 103/ul Normal 1.2-3.8 [facility] Comment on above: Performed By: #### C BC ####[facility] Qbvwgsqkdu7573 [place] [id number]. Farhat Leal Lymphocytes/100 WBC (Bld) 17.2 % Critically low 20.5-60.0 [facility] Comment on above: Performed By: #### C BC ####[facility] Aqubameegl6442 [place] [id number]. Farhat Elvis MANUAL DIFF REQ NO Normal [facility] Comment on above: Performed By: #### C BC ####[facility] Dpxrjuavuj6003 [place] [phone]. Farhat Elvis MCH (RBC) [Entitic mass] 31.7 pg Normal 25.9-34.0 [facility] Comment on above: Performed By: #### C BC ####[facility] Rsqxdhisvt7399 [place] [address]Dr. Farhat Elvis MCHC (RBC) [Mass/Vol] 33.9 g/dL Normal 29.9-35.2 [facility] Comment on above: Performed By: #### C BC ####[facility] Iofwvozsod6050 [place] [id number]. Farhat Elvis MCV (RBC) [Entitic vol] 93.3 fL Normal 80.0-94.0 [facility] Comment on above: Performed By: #### C BC ####[facility] Cqkblujvex7324 [place] [id number]. Farhat Leal MONO # 1.2 103/ul Critically high 0.3-0.8 [facility] Comment on above: Performed By: #### C BC ####[facility] Jkihjfcxij8978 [place] [id number]. Farhat Elvis Monocytes/100 WBC (Bld) 13.7 % Critically high 1.7-12.0 [facility] Comment on above: Performed By: #### C BC ####[facility] Raqfzestgl4094 [place] [address]Dr. Farhat Leal NEUT # 5.5 103/ul Normal 1.4-6.5 [facility] Comment on above: Performed By: #### C BC ####[facility] Gbctzdsirl1869 [place] [id number]. Farhat Leal Neutrophils/100 WBC (Bld) 65.1 % Normal 43.0-75.0 [facility] Comment on above: Performed By: #### C BC ####[facility] Suxoiarfrh5307 [place] [id number]. Farhat eLal Platelet mean volume (Bld) [Entitic vol] 9.6 fL Normal 9.5-13.5 [facility] Comment on above: Performed By: #### C BC ####[facility] Bkxfhfmigl4829 [place] [id number]. Farhat Leal PLT 163 103/ul Normal 150-450 [facility] Comment on above: Performed By: #### C BC ####[facility] Lkeptzifdh9590 [place] [address]Dr. Farhat Leal RBC 4.20 106/ul Critically low 4.70-6.10 [facility] Comment on above: Performed By: #### C BC ####[facility] Ksvlzbhxyg9667 [place] [address]Dr. Farhat Leal WBC 8.4 103/ul Normal 4.0-11.0 [facility] Comment on above: Performed By: #### C BC ####[facility] Svvwzdnzut9029 [place] [address]Dr. Farhat Leal POINT OF CARE GLUCOSEon Glucose [Mass/Vol] 300 mg/dL Critically high 74-106 [facility] Comment on above: Performed By: #### P OCGLUC ####[facility] Dghrjaiqgq5262 [place] [id number]. Farhat Leal POTASSIUMon 09-19-2021 Potassium [Moles/Vol] 4.9 mmol/L Normal 3.5-5.1 [facility] Comment on above: Performed By: #### K ####[facility] Lscshffwku4171 [place] [address]Dr. Frahat Leal PTT HEPARIN MONITORon 2021 aPTT Coag (Bld) [Time] 23.4 s Critically low 39.5-54.2 [facility] Comment on above: Result Comment: repe ated Performed By: #### P TTHEP ####[facility] Ujmjibktff[address] [place], [place] [address]Dr. Farhat Leal aPTT Coag (Bld) [Time] 101.2 s Critically high 39.5-54. 2 [facility] Comment on above: Performed By: #### P TTHEP ####[facility] Mcwbdxzeta2532[address] [place], [place] [address]Dr. Farhat Leal aPTT Coag (Bld) [Time] 81.0 s Critically high 39.5-54. 2 [facility] Comment on above: Result Comment: Test Repeated. Critical Value Verified Performed By: #### P TTHEP ####[facility] Lorloujyvx835[address] [place], [place] [address]Dr. Farhat Leal CBC AUTO DIFFon 09-18-2021 BASO # 0.0 103/ul Normal 0.0-0.1 [facility] Comment on above: Performed By: #### C BC ####[facility] Tbnalksahq65[address] [place], [place] [address]Dr. Farhat Leal Basophils/100 WBC (Bld) 0.4 % Normal 0.2-2.0 [facility] Comment on above: Performed By: #### C BC ####[facility] Myzrcqpiwp09[address] [place], [place] [address]Dr. Farhat Leal EO # 0.1 103/ul Normal 0.0-0.7 [facility] Comment on above: Performed By: #### C BC ####[facility] Gqfagjjhqv[address] [place], [place] [address]Dr. Farhat Leal Eosinophils/100 WBC (Bld) 0.8 % Critically low 0.9-7.0 [facility] Comment on above: Performed By: #### C BC ####[facility] Eflecucksy30[address] [place], [place] [address]Dr. Farhat Leal Erythrocyte distribution width (RBC) [Ratio] 12.4 % Normal 11.0-15.0 [facility] Comment on above: Performed By: #### C BC ####[facility] Ilwhkxkccj8234 [place] [address]Dr. Farhat Leal Hematocrit (Bld) [Volume fraction] 41.7 % Critically low 42.0-54.0 [facility] Comment on above: Performed By: #### C BC ####[facility] Fjnkwffyld2468 [place] [address]Dr. Farhat Leal Hemoglobin (Bld) [Mass/Vol] 14.1 g/dL Normal 14.0-18.0 [facility] Comment on above: Performed By: #### C BC ####[facility] Wponrxhnzu2863 [place] [address]Dr. Farhat Leal IG # 0.06 10e3/ul Critically high 0.00-0.03 [facility] Comment on above: Performed By: #### C BC ####[facility] Vmwxywhkut213[address] [place], [place] [address]Dr. Farhat Leal IG % 0.6 % Critically high 0.0-0.5 [facility] Comment on above: Performed By: #### C BC ####[facility] Bmcotekhno4335 [place] [address]Dr. Farhat Leal LYMPH # 0.6 103/ul Critically low 1.2-3.8 [facility] Comment on above: Performed By: #### C BC ####[facility] Jaxzqmqfba0225 [place] [address]Dr. Farhat Elvis Lymphocytes/100 WBC (Bld) 6.5 % Critically low 20.5-60.0 [facility] Comment on above: Performed By: #### C BC ####[facility] Yatxnfplyy6460 [place] [address]Dr. Farhat Leal MANUAL DIFF REQ NO Normal [facility] Comment on above: Performed By: #### C BC ####[facility] Ipsjlyftbn0263 [place] [address]Dr. Farhat Elvis MCH (RBC) [Entitic mass] 31.6 pg Normal 25.9-34.0 [facility] Comment on above: Performed By: #### C BC ####[facility] Etrxmlsokb7981 [place] [id number]. Farhat Elvis MCHC (RBC) [Mass/Vol] 33.8 g/dL Normal 29.9-35.2 [facility] Comment on above: Performed By: #### C BC ####[facility] Twdxzbowbh0320 [place] [id number]. Farhat Leal MCV (RBC) [Entitic vol] 93.5 fL Normal 80.0-94.0 [facility] Comment on above: Performed By: #### C BC ####[facility] Hywrkmzyom8864 [place] [id number]. Farhat Leal MONO # 1.0 103/ul Critically high 0.3-0.8 [facility] Comment on above: Performed By: #### C BC ####[facility] Koxsifvamx[address] [place], [place] [address]Dr. Farhat Leal Monocytes/100 WBC (Bld) 10.4 % Normal 1.7-12.0 [facility] Comment on above: Performed By: #### C BC ####[facility] Ophyntnhzn[address] [place], [place] [address]Dr. Farhat Leal NEUT # 7.8 103/ul Critically high 1.4-6.5 [facility] Comment on above: Performed By: #### C BC ####[facility] Ruxomeoxva[address] [place], [place] [address]Dr. Farhat Leal Neutrophils/100 WBC (Bld) 81.3 % Critically high 43.0-75.0 [facility] Comment on above: Performed By: #### C BC ####[facility] Fpghlkxnef5098 [place] [id number] Leal Platelet mean volume (Bld) [Entitic vol] 9.9 fL Normal 9.5-13.5 [facility] Comment on above: Performed By: #### C BC ####[facility] Rkuedthahw5777 [place] [id number]. Farhat Leal PLT 169 103/ul Normal 150-450 [facility] Comment on above: Performed By: #### C BC ####[facility] Forktuuotn8302 [place] [id number]. Farhat Leal RBC 4.46 106/ul Critically low 4.70-6.10 [facility] Comment on above: Performed By: #### C BC ####[facility] Pscbgbvaid8823 [place] [id number]. Farhat Elvis WBC 9.6 103/ul Normal 4.0-11.0 [facility] Comment on above: Performed By: #### C BC ####[facility] Fdvgghykqm3920 [place] [id number]. Farhat Leal BASO # 0.0 103/ul Normal 0.0-0.1 [facility] Comment on above: Performed By: #### C BC ####[facility] Tlbrqykzid[address] [place], [place] [address]Dr. Farhat Leal Basophils/100 WBC (Bld) 0.4 % Normal 0.2-2.0 [facility] Comment on above: Performed By: #### C BC ####[facility] Yekuboyrso4851 [place] [id number]. Farhat Leal EO # 0.1 103/ul Normal 0.0-0.7 [facility] Comment on above: Performed By: #### C BC ####[facility] Gutfdnqkip8510 [place] [id number]. Farhat Leal Eosinophils/100 WBC (Bld) 1.1 % Normal 0.9-7.0 [facility] Comment on above: Performed By: #### C BC ####[facility] Wo[address]axvcxk7[address] [place], [place] [address]Dr. Madelynlorri Leal Erythrocyte distribution width (RBC) [Ratio] 12.6 % Normal 11.0-15.0 [facility] Comment on above: Performed By: #### C BC ####[facility] [address]vrpivi[address] [place], [place] [address]Dr. Farhat Leal Hematocrit (Bld) [Volume fraction] 40.8 % Critically low 42.0-54.0 [facility] Comment on above: Performed By: #### C BC ####[facility] [facility] Lvhyb[address]zqx[address] [place] [id number]. Farhat Leal Hemoglobin (Bld) [Mass/Vol] 13.6 g/dL Critically low 14.0-18.0 [facility] Comment on above: Performed By: #### C BC ####[facility] Mhorgdkqbb1851 [place] [id number]. Farhat Leal IG # 0.08 10e3/ul Critically high 0.00-0.03 [facility] Comment on above: Performed By: #### C BC ####[facility] Kjeybmyjpk[address] [place] [address]Dr. Farhat Leal IG % 0.9 % Critically high 0.0-0.5 [facility] Comment on above: Performed By: #### C BC ####[facility] Ivaehskyiy[address] [place] [address]Dr. Farhat Leal LYMPH # 0.8 103/ul Critically low 1.2-3.8 [facility] Comment on above: Performed By: #### C BC ####[facility] Sabwsdosti[address] [place] [address]Dr. Farhat Leal Lymphocytes/100 WBC (Bld) 8.7 % Critically low 20.5-60.0 [facility] Comment on above: Performed By: #### C BC ####[facility] Zkmwvvmfkj60[address] [place] [address]Dr. Farhat Leal MANUAL DIFF REQ NO Normal [facility] Comment on above: Performed By: #### C BC ####[facility] Ssjxztavwg6277 [place] [id number]. Farhat Leal MCH (RBC) [Entitic mass] 31.6 pg Normal 25.9-34.0 [facility] Comment on above: Performed By: #### C BC ####[facility] Hnvslijvcm8993 [place] [id number]. Farhat Leal MCHC (RBC) [Mass/Vol] 33.3 g/dL Normal 29.9-35.2 [facility] Comment on above: Performed By: #### C BC ####[facility] Uwupqmnemn75[address] [place] [id number]. Farhat Leal MCV (RBC) [Entitic vol] 94.9 fL Critically high 80.0-94.0 [facility] Comment on above: Performed By: #### C BC ####[facility] Njzptpfqkg9[address] [place] [id number]. Farhat Leal MONO # 1.0 103/ul Critically high 0.3-0.8 [facility] Comment on above: Performed By: #### C BC ####[facility] Uffuxuwfqi33[address] [place] [id number]. Farhat Leal Monocytes/100 WBC (Bld) 11.3 % Normal 1.7-12.0 [facility] Comment on above: Performed By: #### C BC ####[facility] [address] [place], [place] [address]Dr. Farhat Leal NEUT # 6.9 103/ul Critically high 1.4-6.5 [facility] Comment on above: Performed By: #### C BC ####[facility] Auxyximvdj1378 [place] [id number]. Farhat Leal Neutrophils/100 WBC (Bld) 77.6 % Critically high 43.0-75.0 [facility] Comment on above: Performed By: #### C BC ####[facility] Vkdhdiihyl1195 [place] [id number]. Farhat Elvis Platelet mean volume (Bld) [Entitic vol] 9.7 fL Normal 9.5-13.5 [facility] Comment on above: Performed By: #### C BC ####[facility] Hcouviirxn3844 [place] [id number]. Farhat Elvis PLT 171 103/ul Normal 150-450 [facility] Comment on above: Performed By: #### C BC ####[facility] Sctvfnblqb1735 [place] [id number]. Farhat Leal RBC 4.30 106/ul Critically low 4.70-6.10 [facility] Comment on above: Performed By: #### C BC ####[facility] [address]fcz[address] [place], [place] [address]Sc. Farhat Leal WBC 8.9 103/ul Normal 4.0-11.0 [facility] Comment on above: Performed By: #### C BC ####[facility] Bikewxvgpv5[address] [place], [place] [address]Lw. Farhat Elvis Covid-19 PCR (CVDTBH)on SARS-CoV-2 (COVID-19) RNA JOSH+probe Ql (Unsp spec) Not detected Normal NOT DETECTED [facility] Comment on above: Result Comment: When [...] for this test is supported by the Management Services Technician of Health and Human Service's declaration that [...] be used). Performed By: #### C VDTBH ####[facility] Xmaxssfvbu6115 [place] [id number]. Madelynlorri Leal PROF 14(COMP METB)on 022 Albumin [Mass/Vol] 2.6 g/dL Critically low 3.4-5.0 [facility] Comment on above: Performed By: #### C MP ####[facility] Draibpxjuh32[address] [place] [id number]. Farhat Leal Albumin/Globulin [Mass ratio] 0.7 {ratio} Normal [facility] Comment on above: Performed By: #### C MP ####[facility] Rmpolncqrh8434 [place] [id number]. Farhat Leal ALP [Catalytic activity/Vol] 88 U/L Normal 46-116 [facility] Comment on above: Performed By: #### C MP ####[facility] Edgvsqwblt4002 [place] [id number]. Farhat Leal ALT [Catalytic activity/Vol] 15 U/L Critically low 16-63 [facility] Comment on above: Performed By: #### C MP ####[facility] Ptzmozlkrf8193 [place] [address]Dr. Farhat Leal Anion gap [Moles/Vol] 11.7 mmol/L Normal [facility] Comment on above: Performed By: #### C MP ####[facility] Ojfdxdimal9530 [place] [address]Dr. Farhat Leal AST [Catalytic activity/Vol] 25 U/L Normal 15-37 [facility] Comment on above: Performed By: #### C MP ####[facility] Ipaxtpfucf14[address] [place] [address]Dr. Farhat Leal Bilirubin [Mass/Vol] 0.6 mg/dL Normal 0.2-1.0 [facility] Comment on above: Performed By: #### C MP ####[facility] Qphhggmsif5569 [place] [address]Dr. Farhat Leal Calcium [Mass/Vol] 8.9 mg/dL Normal 8.5-10.1 [facility] Comment on above: Performed By: #### C MP ####[facility] Zvlemcrqta4158 [place] [address]Dr. Farhat Leal Chloride [Moles/Vol] 93 mmol/L Critically low 98-107 [facility] Comment on above: Performed By: #### C MP ####[facility] Qoljtvuriz7342 [place] [address]Dr. Farhat Leal CO2 [Moles/Vol] 28.9 mmol/L Normal 21.0-32.0 [facility] Comment on above: Performed By: #### C MP ####[facility] Avhxffrvxs3436 [place] [address]Dr. Farhat Leal Creatinine [Mass/Vol] 2.09 mg/dL Critically high 0.70-1.30 [facility] Comment on above: Performed By: #### C MP ####[facility] Abipwphytn5415 [place] [address]Dr. Farhat Leal EGFR-AF GERMAN 38 mL/min/1.73m2 Critically low >=60 [facility] Comment on above: Performed By: #### C MP ####[facility] Tatxowqyat9665 [place] [address]Dr. Farhat Leal EGFR-NON AF GERMAN 31 mL/min/1.73m2 Critically low >=60 [facility] Comment on above: Performed By: #### C MP ####[facility] Vxvqjleyly4221 [place] [address]Dr. Farhat Leal Globulin (S) [Mass/Vol] 3.7 g/dL Normal [facility] Comment on above: Performed By: #### C MP ####[facility] Veosluqxyk0548 [place] [address]Dr. Farhat Leal Glucose [Mass/Vol] 214 mg/dL Critically high 74-106 T [facility] Comment on above: Performed By: #### C MP ####[facility] Bmmflktmlg1890 [place] [address]Dr. Farhat Leal Potassium [Moles/Vol] 5.6 mmol/L Critically high 3.5-5.1 [facility] Comment on above: Performed By: #### C MP ####[facility] Espedbzanz8015 [place] [address]Dr. Farhat Leal Protein [Mass/Vol] 6.3 g/dL Critically low 6.4-8.2 Th [facility] Comment on above: Performed By: #### C MP ####[facility] Txbfrhpglm8653 [place] [address]Dr. Farhat Leal Sodium [Moles/Vol] 128 mmol/L Critically low 136-145 Th [facility] Comment on above: Performed By: #### C MP ####[facility] Cbdqrekjxe3748 [place] [id number]. Farhat Leal Urea nitrogen [Mass/Vol] 65.0 mg/dL Critically high 7.0-18.0 [facility] Comment on above: Performed By: #### C MP ####[facility] Bjgmlzbphf1396 [place] [id number]. Farhat Elvis Urea nitrogen/Creatinine [Mass ratio] 31.1 mg/mg Normal [facility] Comment on above: Performed By: #### C MP ####[facility] [address] [place], [place] [address]Dr. Farhat Elvis Albumin [Mass/Vol] 2.5 g/dL Critically low 3.4-5.0 Th [facility] Comment on above: Performed By: #### T MYRIAM, CMP ####[facility] Zq[address]ul[address] [place], [place] [address]Dr. Farhat Leal Albumin/Globulin [Mass ratio] 0.7 {ratio} Normal [facility] Comment on above: Performed By: #### T MYRIAM, CMP ####[facility] Lnjvezfgkb[address] [place], [place] [address]Dr. Madelynlorri Leal ALP [Catalytic activity/Vol] 83 U/L Normal 46-116 [facility] Comment on above: Performed By: #### T MYRIAM, CMP ####[facility] M[address]gtuiu[address] [place], [place] [address]Dr. Farhat Leal ALT [Catalytic activity/Vol] 16 U/L Normal 16-63 [facility] Comment on above: Performed By: #### T MYRIAM, CMP ####[facility] Gyddvcfbjn[address] [place], [place] [address]Dr. Farhat Elvis Anion gap [Moles/Vol] 9.7 mmol/L Normal [facility] Comment on above: Performed By: #### T SH, CMP ####[facility] [address]auvz[address] [place], [place] [address]Dr. Farhat Leal AST [Catalytic activity/Vol] 27 U/L Normal 15-37 [facility] Comment on above: Performed By: #### T MYRIAM, CMP ####[facility] [address]zr[address] [place], [place] [address]Dr. Farhat Leal Bilirubin [Mass/Vol] 0.5 mg/dL Normal 0.2-1.0 [facility] Comment on above: Performed By: #### T SH, CMP ####[facility] [address]qs[address] [place], [place] [address]Dr. Farhat Leal Calcium [Mass/Vol] 8.8 mg/dL Normal 8.5-10.1 [facility] Comment on above: Performed By: #### T SH, CMP ####[facility] C[address]oulacon[address] [place], [place] [address]Dr. Farhat Leal Chloride [Moles/Vol] 95 mmol/L Critically low 98-107 [facility] Comment on above: Performed By: #### T SH, CMP ####[facility] [address]fwdrodtq[address] [place], [place] [address]Dr. Farhat Leal CO2 [Moles/Vol] 30.5 mmol/L Normal 21.0-32.0 [facility] Comment on above: Performed By: #### T MYRIAM, CMP ####[facility] [address]wqgesnh[address] [place], [place] [address]Dr. Farhat Leal Creatinine [Mass/Vol] 2.18 mg/dL Critically high 0.70-1.30 [facility] Comment on above: Performed By: #### T SH, CMP ####[facility] Qcb[address] [place], [place] [address]Dr. Farhat Leal EGFR-AF GERMAN 36 mL/min/1.73m2 Critically low >=60 [facility] Comment on above: Performed By: #### T SH, CMP ####[facility] [address]bxunecq[address] [place], [place] [address]Dr. Farhat Leal EGFR-NON AF GERMAN 30 mL/min/1.73m2 Critically low >=60 [facility] Comment on above: Performed By: #### T SH, CMP ####[facility] Ygxquxxxfe228[address] [place], [place] [address]Dr. Farhat Leal Globulin (S) [Mass/Vol] 3.5 g/dL Normal [facility] Comment on above: Performed By: #### T SH, CMP ####[facility] [address]qfaug[address] [place], [place] [address]Dr. Farhat Leal Glucose [Mass/Vol] 141 mg/dL Critically high 74-106 T [facility] Comment on above: Performed By: #### T SH, CMP ####[facility] Udifrhtiyj[address] [place], [place] [address]Dr. Farhat Leal Potassium [Moles/Vol] 5.2 mmol/L Critically high 3.5-5.1 [facility] Comment on above: Performed By: #### T SH, CMP ####[facility] I[address]tamyy[address] [place], [place] [address]Dr. Farhat Leal Protein [Mass/Vol] 6.0 g/dL Critically low 6.4-8.2 Th [facility] Comment on above: Performed By: #### T SH, CMP ####[facility] Omsxqmrhfq[address] [place], [place] [address]Dr. Farhat Leal Sodium [Moles/Vol] 130 mmol/L Critically low 136-145 [facility] Comment on above: Performed By: #### T SH, CMP ####[facility] Weboruuujo[address] [place], [place] [address]Dr. Farhat Elvis Urea nitrogen [Mass/Vol] 63.0 mg/dL Critically high 7.0-18.0 [facility] Comment on above: Performed By: #### T SH, CMP ####[facility] [address]umaxvwsgo[address] [place], [place] [address]Dr. Farhat Elvis Urea nitrogen/Creatinine [Mass ratio] 28.9 mg/mg Normal [facility] Comment on above: Performed By: #### T SH, CMP ####[facility] Oqfdjiv[address] [place], [place] [address]Dr. Farhat Leal PROTIMEon 09-18-2021 INR Coag (PPP) [Relative time] 1.06 {INR} Normal [facility] Comment on above: Performed By: #### P T, PTT ####[facility] Q[address]vkfx[address] [place], [place] [address]Dr. Farhat Leal INR GUIDELINES SEE BELOW Normal [facility] Comment on above: Result Comment: MALINA RED INR: 2.0 - 3.0 CONDITIONS NOT LISTED BELOW 2.5 - 3.5 FOR PROSTHETIC HEART VALVE REPLACEMENT 2.5 - 3.5 RECURRENT THROMBOSIS Performed By: #### P T, PTT ####[facility] Ut[address]anzmac[address] [place] [id number]. Madelynlorri Elvis PT Coag (PPP) [Time] 11.4 s Normal 9.0-11.6 [facility] Comment on above: Performed By: #### P T, PTT ####[facility] [address]iev[address] [place] [address]Dr. Madelynlorri Elvis PTTon 09-18-2021 aPTT Coag (Bld) [Time] 27.9 s Normal 22.3-36.2 Th [facility] Comment on above: Performed By: #### P T, PTT ####[facility] Otchjyvadu45[address] [place] [address]Dr. Farhat Leal TSHon 09-18-2021 TSH 7.099 uIU/mL Critically high 0.358-3.740 [facility] Comment on above: Performed By: #### T SH, CMP ####[facility] K[address]yuq[address] [place], [place] [address]Dr. Farhat Leal US SALOME DOP LEG RTon 09-19-19 US SALOME DOP LEG RT Normal [facility] XR CHEST 1 Von 09-18-2021 XR CHEST 1 V Normal [facility] XR HIP RT 2 3V W PELVISon XR HIP RT 2 3V W PELVIS Normal [facility] Vital Signs Date Time Vital Sign Value Performing Clinician Facility 03-18-2023 13:37-0500 Body temperature 98.01 [degF] [place] [employer] Work Phone: [facility] 03-18-2023 13:37-0500 Diastolic blood pressure 64 mm[Hg] [place] [facility] [employer] Work Phone: [facility] 03-18-2023 13:37-0500 Heart rate 72 /min [facility] [employer] Work Phone: [facility] 03-18-2023 13:37-0500 SaO2% (BldA) [Mass fraction] 98 % Ni Petznick DO Work Phone: [facility] 03-18-2023 13:37-0500 Systolic blood pressure 118 mm[Hg] Ni Petznick DO Work Phone: [facility] 07-20-2022 13:35-0400 Body temperature 97.4 [degF] DO Devon Ball Work Phone: [facility] 07-20-2022 13:35-0400 Diastolic blood pressure 50 mm[Hg] DO Devon Ball Work Phone: [facility] 07-20-2022 13:35-0400 Heart rate 67 /min DO Devon Ball Work Phone: [facility] 07-20-2022 13:35-0400 Respiratory rate 20 /min DO Devon Ball Work Phone: [facility] 07-20-2022 13:35-0400 Systolic blood pressure 98 mm[Hg] DO Devon Ball Work Phone: [facility] 06-29-2022 14:46-0400 Body height 193.04 cm DO Devon Ball Work Phone: [facility] 02-26-2022 13:11-0500 Body temperature 96.6 [degF] Hina Peterson MD Work Phone: [facility] 02-26-2022 13:11-0500 Diastolic blood pressure 75 mm[Hg] Hina Peterson MD Work Phone: [facility] 02-26-2022 13:11-0500 Heart rate 75 /min Hina Peterson MD Work Phone: [facility] 02-26-2022 13:11-0500 Systolic blood pressure 88 mm[Hg] Hina Peterson MD Work Phone: [facility] 02-05-2022 08:29-0500 Body temperature 96.69 [degF] [facility] Work Phone: [facility] 02-05-2022 08:29-0500 Diastolic blood pressure 42 mm[Hg] [facility] Work Phone: [facility] 02-05-2022 08:29-0500 Heart rate 79 /min [facility] Work Phone: [facility] 02-05-2022 08:29-0500 SaO2% (BldA) [Mass fraction] 100 % [facility] Work Phone: [facility] 02-05-2022 08:29-0500 Systolic blood pressure 72 mm[Hg] [facility] Work Phone: [facility] 01-12-2022 11:00-0500 Diastolic blood pressure 54 mm[Hg] Alissa Major VETERINARY LABORATORY TECHNICIAN.[employer]ORDER ME[employer] Work Phone: [facility] 01-12-2022 11:00-0500 Heart rate 88 /min Alissa Major VETERINARY LABORATORY TECHNICIAN.BORDER MEASURER Work Phone: [facility] 01-12-2022 11:00-0500 SaO2% (BldA) [Mass fraction] 93 % Alissa Major VETERINARY LABORATORY TECHNICIAN.BORDER MEASURER Work Phone: [facility] 01-12-2022 11:00-0500 Systolic blood pressure 96 mm[Hg] Alissa Major VETERINARY LABORATORY TECHNICIAN.BORDER MEASURER Work Phone: [facility] 01-12-2022 10:12-0500 Body temperature 97.9 [degF] Alissa Major VETERINARY LABORATORY TECHNICIAN.BORDER MEASURER Work Phone: [facility] 01-12-2022 10:12-0500 Respiratory rate 18 /min Alissa Major VETERINARY LABORATORY TECHNICIAN.BORDER MEASURER Work Phone: [facility] 11-17-2021 15:59-0400 Body height 193 cm No Reeder DO Work Phone: [facility] 11-17-2021 15:59-0400 Body weight 111.58 kg No Reeder DO Work Phone: [facility] 11-17-2021 15:59-0400 Diastolic blood pressure 59 mm[Hg] No Reeder DO Work Phone: [facility] 11-17-2021 15:59-0400 Heart rate 86 /min No Reeder DO Work Phone: [facility] 11-17-2021 15:59-0400 SaO2% (BldA) [Mass fraction] 97 % No Reeder DO Work Phone: [facility] 11-17-2021 15:59-0400 Systolic blood pressure 104 mm[Hg] No Reeder DO Work Phone: [facility] Encounters Encounter Date Encounter Type Care Provider Facility Start: 06-17-2023 End: 06-17-2023 ambulatory NI CABRERA Not Available Start: 05-19-2023 End: 05-19-2023 ambulatory [facility] Start: 04-11-2023 End: 04-11-2023 ambulatory Devon Moreira Other [employer] Other Start: 04-11-2023 Telephone encounter Devon NUNEZ [facility] Start: 03-18-2023 End: 03-18-2023 ambulatory NI CABRERA Not Available Start: 03-18-2023 End: 03-18-2023 Office outpatient visit 25 minutes Ni Cabrera DO Work Phone: [facility] [phone] Comment on above: 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 ([facility]) (Primary Dx); 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 ([facility]); Type 1 diabetes mellitus with nephropathy ([facility]); Type 1 diabetes mellitus with hypoglycemia and without coma ([facility]); 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 ([facility]) Start: 02-17-2023 End: 02-17-2023 ambulatory Devon Moreira Other [employer] Other Start: 02-17-2023 Telephone encounter Devon NUNEZ [facility] Start: 01-14-2023 End: 01-14-2023 ambulatory Devon Moreira Other [employer] Other Start: 01-14-2023 Sbsq nursing facil c are/day minor complj 15 min [facility] Start: 12-10-2022 End: 12-10-2022 ambulatory Devon Moreira Other [employer] Other Start: 12-10-2022 Sbsq nursing facil c are/day minor complj 15 min [facility] Start: 11-12-2022 End: 11-12-2022 ambulatory Devon Moreira Other [employer] Other Start: 11-12-2022 Sbsq nursing facil c are/day minor complj 15 min [facility] Start: 10-16-2022 Refill Asia Pkie MD Work Phone: [facility] Comment on above: Med Change Request Start: 10-12-2022 End: 10-12-2022 ambulatory Devon Moreira Other [employer] Other Start: 10-12-2022 Telephone encounter Devon Moreira [facility] Start: 10-08-2022 End: 10-08-2022 ambulatory Devon Moreira Other [employer] Other Start: 10-08-2022 Sbsq nursing facil c are/day new problem 25 min [facility] Start: 09-22-2022 [facility] Start: 09-10-2022 End: 09-10-2022 ambulatory Devon Moreira Other [employer] Other Start: 09-10-2022 Sbsq nursing facil c are/day new problem 25 min [facility] Start: 09-09-2022 End: 09-09-2022 ambulatory [facility] Start: 08-06-2022 End: 08-06-2022 ambulatory Devon Moreira Other [employer] Other Start: 08-06-2022 Sbsq nursing facil c are/day new problem 25 min Devon Moreira [facility] Start: 07-22-2022 End: 07-22-2022 ambulatory Devon Moreira Other [employer] Other Start: 07-22-2022 Telephone encounter [facility] Start: 07-20-2022 End: 07-20-2022 ambulatory Sadia Aguilar Facility:[facility] Start: 07-20-2022 End: 07-20-2022 ambulatory DO Devon Moreira Work Phone: [facility] [place] [facility] Work Phone: Start: 07-20-2022 End: 07-20-2022 Discharged Recurring DO Devon Lillie Work Phone: [facility] [place] [facility] Work Phone: Start: 07-13-2022 End: 07-13-[address] DEVON MOREIRA Facility:[facility] Start: 07-10-2022 End: 07-10-[address] DEVON MOREIRA Facility:[facility] Start: 07-03-2022 End: 07-03-[address] DEVON MOREIRA Facility:[facility] Start: 06-26-2022 End: 06-26-[address] DEVON MOREIRA Facility:[facility] Start: 06-26-2022 End: 06-26-[address] DEVON MOREIRA Facility:[facility] Start: 06-25-2022 End: 06-25-2022 ambulatory Devon Moreira Other [employer] Other Start: 06-25-2022 Sbsq nursing facil c are/day minor complj 15 min Devon Moreira [facility] Start: 06-19-2022 End: 06-19-[address] DEVON MOREIRA Facility:[facility] Start: 06-15-2022 End: 07-15-2022 ambulatory SHAIKH Kate MURRAY Facility:[facility] Start: 06-12-2022 End: 06-12-[address] DOCTOR WALSH Facility:[facility] Start: 06-05-2022 Sbsq nursing facil c are/day new problem 25 min Devon Moreira [facility] Start: 06-05-2022 End: 06-05-[address] DEVON MOREIRA [facility] [employer] Other Start: 05-29-2022 End: 05-29-[address] DEVON MOREIRA Facility:[facility] Start: 05-22-2022 End: 05-22-[address] DEVON MOREIRA Facility:[facility] Start: 05-20-2022 End: 05-20-[address] DVEON MOREIRA Facility:[facility] Start: 05-18-2022 End: 06-12-2022 ambulatory SHAIKH Kate MURRAY Facility:[facility] Start: 05-15-2022 End: 05-15-[address] DEVON MOREIRA Facility:[facility] Start: 05-13-2022 End: 05-13-2022 ambulatory Van Olivarez APRN.BORDER MEASURER Work Phone: [facility] [place] Comment on above: results Start: 05-13-2022 E-mail encounter fro m caregiver Van Olivarez APRN.BORDER MEASURER Work Phone: [facility] Start: 05-08-2022 End: 05-08-[address] DEVON MOREIRA Facility:[facility] Start: 05-07-2022 End: 05-07-2022 ambulatory Devon Moreira Other [employer] Other Start: 05-07-2022 Sbsq nursing facil c are/day new problem 25 min Devon Moreira [facility] Start: 05-06-2022 End: 05-06-[address] DEVON MOREIRA Facility:[facility] Start: 05-01-2022 End: 05-01-[address] DEVON MOREIRA Facility:[facility] Start: 04-28-2022 ambulatory SHAIKH Kate MURRAY Facilit y:[facility]1 Start: 04-24-2022 End: 04-24-[address] JACOBO MONZON . Facility:[facility] Start: 04-17-2022 End: 04-17-[address] DEVON MOREIAR Facility:[facility] Start: 04-15-2022 End: 04-16-[address] DEVON MOREIRA Facility:[facility] Start: 04-15-2022 End: 04-15-[address] DEVON MOREIRA Facility:[facility] Start: 04-13-2022 End: 04-13-[address] DEVON MOREIRA Facility:[facility] Start: 04-02-2022 ambulatory Van cortes APRN.CNP Work Phone: [facility] Start: 04-01-2022 End: 04-01-[address] DEVON MOREIRA Facility:[facility] Start: 03-22-2022 Refill Asia Pike MD Work Phone: [facility] Comment on above: Med Change Request Start: 03-21-2022 ambulatory SHAIKH Kate MURRAY Facilit y:[facility]1 Start: 03-11-2022 End: 03-11-[address] DEVON MOREIRA Facility:[facility] Start: 02-27-2022 Refill Samira Serna [facility] Comment on above: Rx Refills [...] ransplant (Primary Dx); 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; senior care current use of immunosuppressive drug Start: 01-26-2022 End: 01-26-[address] DEVON MOREIRA Facility:H1 Start: 01-20-2022 Telephone encounter Van Olivarez APRN.BORDER MEASURER Work Phone: Kidney Medicine [facility] Comment on above: Results Start: 01-19-2022 End: 01-19-[address] DEVON MOREIRA Facility:H1 Start: 01-16-2022 ambulatory SHAIKH Kate MURRAY Facilit y:H1 Start: 01-12-2022 End: 01-12-2022 Subsequent hospital visit by physician Alissa Chavira APRN.BORDER MEASURER Work Phone: Angio Comment on above: ILIANA (acute kidney in jury) ([facility]) [N17.9] Start: 12-30-2021 End: 12-30-2021 ambulatory Paresh Fonseca MD Work Phone: Infectious Disease Comment on above: MRSA bacteremia (Arabella munira Dx); Diabetic foot ulcer with osteomyelitis (HCC) Start: 12-30-2021 End: 12-30-2021 Telemedicine consultation with patient Paresh Fonseca MD Work Phone: F [facility] Start: 12-29-2021 End: 12-29-[address] [...] Start: 12-08-2021 Orders Only Artur Burger ry VETERINARY LABORATORY TECHNICIAN.BORDER MEASURER Work Phone: Transplant Center Comment on above: Kidney replaced by t ransplant (Primary Dx) Start: 12-07-2021 ambulatory Paresh Fonseca MD Work Phone: [facility] Comment on above: CoPat Start (copat s top 12/27/21) Start: 12-05-2021 Telephone encounter Paresh Fonseca MD Work Phone: Infectious Disease Comment on above: Patient Update (evus held discussion/) Start: 12-01-2021 Follow-up encounter [facility] Provider [facility] Start: 12-01-2021 Patient encounter procedure [facility] Prov ider [facility] Department Start: 11-23-2021 End: 11-28-2021 Evaluation [...] encounter Start: 11-14-2021 End: 11-15-2021 [facility] Start: 10-24-2021 End: 11-15-2021 ambulatory SHAIKH Kate MURRAY Facility:H1 Start: 10-22-2021 End: 10-23-2021 ambulatory ASHLEY GARIBAY Facility:H1 Start: 10-06-2021 ambulatory Van cortes VETERINARY LABORATORY TECHNICIAN.BORDER MEASURER Work Phone: [facility] Start: 09-30-2021 Refill Asia Pike MD Work Phone: [facility] Comment on above: Refill Request Start: 09-19-2021 End: 09-24-2021 Evaluation and management of inpatient DR PROSPER LEES Facility:H1 Start: 09-18-2021 End: 09-19-[address] DEVON MOREIRA Facility:H1 Start: 07-11-2021 Refill Asia Pike MD Work Phone: [facility] Comment on above: Refill Request Start: 06-05-2021 Telephone encounter aVn Olivarez VETERINARY LABORATORY TECHNICIAN.BORDER MEASURER Work Phone: [facility] Comment on above: Results Start: 02-05-2021 End: 02-13-2021 ambulatory UNKNOWN PROVIDER Facility:[facility] Procedures Date Procedure Procedure Detail Performing Clinician Start: 05-19-2023 Follow-up visit Follow-up CAITY IBRAHIM Start: 03-18-2023 Hemoglobin glycosyla rk a1c Ni Cabrera DO Work Phone: Start: 02-05-2022 Creatinine other source Asia Pike MD Work Phone: Start: 02-05-2022 Urnls dip stick/tabl et rgnt auto w/o microscopy Asia Pike MD Work Phone: Start: 01-12-2022 Prothrombin time Alissa Chavira VETERINARY LABORATORY TECHNICIAN.BORDER MEASURER Work Phone: Start: 12-01-2021 PACEMAKER CLINIC CHECK [facility] Provider Start: 11-29-2021 Microscopic examinat ion of blood, culture DR PROSPER LEES Comment on above: Performed By: #### B [id number] ####[facility] [id number] [place], [place] [address]EeSkylar Leal Start: 11-27-2021 Insertion of Infusio n [...] renal transplant KIDNEY TRANSPLANT STATUS Van Sher VETERINARY LABORATORY TECHNICIAN.BORDER MEASURER Work Phone: History of renal transplant Kidney replaced by transplant Artur Chen VETERINARY LABORATORY TECHNICIAN.BORDER MEASURER Work Phone: History of renal transplant Kidney replaced by transplant [facility] Work Phone: History of renal transplant Devon Moreira Other History of renal transplant Kidney replaced by transplant Asia Pike MD Work Phone: History of renal transplant Devon Moreira Other Plan of Treatment Date Care Activity Detail Author Start: 06-17-2023 End: 06-17-2023 Patient encounter procedure 06/17/2023 2:15 PM EDT Office Visit [facility] [address] [place] [address] Ni Cabrera DO [address] [place] [address] [facility] [address] Start: 06-16-2023 Hemoglobin A1c measurement Diabetes: Hemoglobin A1C [facility] Start: 02-26-2023 BP CONTROLLED (<130/80) BP CONTROLLE D (<130/80) [facility] Start: 02-05-2023 BP CONTROLLED (<130/80) BP CONTROLLE D (<130/80) [facility] Start: 01-12-2023 BP CONTROLLED (<130/80) BP CONTROLLE D (<130/80) [facility] Start: 11-17-2022 BP CONTROLLED (<130/80) BP CONTROLLE D (<130/80) [facility] Start: 10-16-2022 Influenza vaccination [facility] Start: 05-15-2022 Medicare Annual Wellness (AWV) Medicare Annual Wellness (AWV) [facility] Start: 04-08-2022 BP CONTROLLED (<130/80) BP CONTROLLE D (<130/80) [facility] Start: 02-15-2022 ADVANCE DIRECTIVE DISCUSSION ADVANCE DIRECTIVE DISCUSSION [facility] Start: 02-15-2022 DEPRESSION ASSESSMENT DEPRESSION ASS ESSMENT [facility] Start: 02-05-2022 COVID-19 VACCINE (5 - Ynug risk series) COVID-19 VACCINE (5 - Yung risk series) [facility] Start: 11-27-2021 COVID-19 VACCINE (4 - Booster for Yung series) COVID-19 VACCINE (4 - Booster for Yung series) [facility] Start: 11-04-2021 Hemoglobin A1c/Hemoglobin.total in Blood HBA1C [facility] Start: 10-16-2021 Influenza vaccination [facility] Start: 03-26-2021 COVID-19 VACCINE (3 - Yung risk 3-dose series) COVID-19 VACCINE (3 - Yung risk 3-dose series) [facility] Start: 03-26-2021 COVID-19 VACCINE (3 - Yung risk series) COVID-19 VACCINE (3 - Yung risk series) [facility] Start: 02-15-2021 ADVANCE DIRECTIVE DISCUSSION ADVANCE DIRECTIVE DISCUSSION [facility] Start: 02-15-2021 DEPRESSION ASSESSMENT DEPRESSION ASS ESSMENT [facility] Start: 01-05-2016 Hepatitis B screening URINE AL BUMIN:CREATININE RATIO [facility] Start: 07-31-2015 Pneumococcal Vaccine : 65+ Years (3 - PCV) Pneumococcal Vaccine: 65+ Years (3 - PCV) [facility] Start: 04-06-2015 Hemoglobin A1c/Hemoglobin.total in Blood HBA1C [facility] Start: 11-22-2010 Hepatitis B surface antibody level LDL CHOLESTEROL [facility] Start: 2009 ADULT PREVNAR-13 ADULT PREVNAR-13 Cl [facility] Start: 2009 PNEUMOVAX AGE 65 AND OVER WITH 5YR LOOKBACK (#1) PNEUMOVAX AGE 65 AND OVER WITH 5YR LOOKBACK (#1) [facility] Start: 1994 SHINGRIX VACCINE (1 of 2) SHINGRIX VACCINE (1 of 2) [facility] Start: 10-18-1963 HEPATITIS A (1 of 2 - Risk 2-dose series) HEPATITIS A (1 of 2 - Risk 2-dose series) [facility] Start: 10-18-1963 Hepatitis A Vaccine (1 of 2 - Risk 2-dose series) Hepatitis A Vaccine (1 of 2 - Risk 2-dose series) [facility] Start: 10-18-1963 SHINGRIX VACCINE (1 of 2) SHINGRIX VACCINE (1 of 2) [facility] Start: 10-18-1963 Urine microalbumin profile [facility] Start: 1962 ANNUAL PCP TEAM GRADALL OPERATOR MATTHEW DISEASE VISIT ANNUAL PCP TEAM CHRONIC DISEASE VISIT [facility] Start: 1956 Adult depression screening assessment DEPRESSION SCREENING [facility] Start: 1954 3 comp foot exam completed DIABETIC FOOT EXAM [facility] Start: 1954 Glaucoma screening Diabetes: R etinopathy Screening [facility] Start: 1954 Hepatitis C antibody , confirmatory test DILATED RETINAL EXAM [facility] Start: 1950 Pneumococcal Vaccine : 65+ (1 - PCV) Pneumococcal Vaccine: 65+ (1 - PCV) [facility] Start: 1950 PNEUMOCOCCAL: 65+ (1 - PCV) PNEUMOCOCCAL: 65+ (1 - PCV) [facility] Start: 1945 HEPATITIS A (1 of 2 - Risk 2-dose series) HEPATITIS A (1 of 2 - Risk 2-dose series) [facility] URINALYSIS, REFLEX MICROSCOPIC URINALYSIS, REFLEX MICROSCOPIC Lab Routine Screening for genitourinary condition Ordered: 10/06/2021 [facility] Work Phone: Comment on above: Ordered: 10/06/2021 URINALYSIS, REFLEX MICROSCOPIC URINALYSIS, REFLEX MICROSCOPIC Lab Routine Screening for genitourinary condition Ordered: 04/02/2022 [facility] Work Phone: Comment on above: Ordered: 04/02/2022 End: 11-17-2022 US LEG ARTERIAL PERIPH UNL VAS LAB US LEG ARTERIAL PERIPH UNL VAS LAB Vascular Lab Routine PAD (peripheral artery disease) (HCC) Nonhealing ulcer of heel (HCC) 1 Occurrences starting 11/17/2021 until 11/17/2022 [facility] Work Phone: Comment on above: 1 Occurrences starti ng 11/17/2021 until 11/17/2022 End: 11-17-2022 US LEG VEIN DVT UNL VAS LAB US LEG VEIN DVT UNL VAS LAB Vascular Lab Routine Acute deep vein thrombosis (DVT) of proximal end of right lower extremity (HCC) 1 Occurrences starting 11/17/2021 until 11/17/2022 [facility] Work Phone: Comment on above: 1 Occurrences starti ng 11/17/2021 until 11/17/2022 [facility] & VAS DANIEL BROTHERS CT & VAS [facility] Immunizations Immunization Date Immunization Notes Care Provider [facility] 12-11-2021 COVID-19 booster vaccine, age 12+ yr, bivalent (PFIZER-BIONTECH) Paresh Fonseca MD Work Phone: [facility] 12-11-2021 influenza, high-dose , quadrivalent vaccine (FLUZONE HIGH DOSE QUADRIVALENT) Paresh Fonseca MD Work Phone: [facility] 12-11-2021 influenza virus vaccine, unspecified formulation [facility] 10-24-2021 influenza, high dose seasonal, preservative-free Ni Petznick DO Work Phone: [facility] 01-19-2019 influenza, high dose seasonal, preservative-free Ni Petznick DO Work Phone: [facility] 11-25-2017 Seasonal trivalent influenza vaccine, adjuvanted, preservative free Ni Petznick DO Work Phone: [facility] 11-05-2016 influenza, high dose seasonal, preservative-free Ni Petznick DO Work Phone: [facility] 07-30-2014 pneumococcal polysaccharide vaccine, 23 valent Ni Petznick DO Work Phone: [facility] 03-09-2011 influenza virus vaccine, unspecified formulation Van Olivarez VETERINARY LABORATORY TECHNICIAN.BORDER MEASURER Work Phone: [facility] 12-17-2007 influenza virus vaccine, unspecified formulation Van Olivarez VETERINARY LABORATORY TECHNICIAN.BORDER MEASURER Work Phone: [facility] Work Phone: 02-11-2006 influenza virus vaccine, unspecified formulation Van Olivarez VETERINARY LABORATORY TECHNICIAN.BORDER MEASURER Work Phone: [facility] Work Phone: 12-07-2003 influenza virus vaccine, unspecified formulation Van Olivarez VETERINARY LABORATORY TECHNICIAN.BORDER MEASURER Work Phone: [facility] Work Phone: 12-07-2003 pneumococcal polysaccharide vaccine, 23 valent Van Olivarez VETERINARY LABORATORY TECHNICIAN.[facility] Work Phone: [facility] Work Phone: NEGATED: Highlighted row has not occurred!12-10-2021 COVID-19 booster vaccine, age 12+ yr, bivalent (PFIZER-BIONTXMOS) Paresh Fonseca MD Work Phone: [facility] NEGATED: Highlighted row has not occurred!12-10-2021 influenza, high-dose, quadrivalent vaccine (FLUZONE HIGH DOSE QUADRIVALENT) Paresh Fonseca MD Work Phone: [facility] Payers Date Payer Category Payer Medicare MEDICARE MEDICAR E A AND B [id number] 2009-Present [phone] [address] [address] [place] [address] Medicare [id number] 2009 Medicare [id number] [id number] .[id number] 2009 Unknown [employer] MEDICARE SUPPLEMENT [id number] 2009-Present [phone] [id number] [facility] [place] [address] Indemnity [id number] [id number] .[id number] 2009 Unknown [id number]. 1.13.159.2.7.3 .560185.315 2009 Unknown [id number] 2.16.8 40.1.818826.19 2009 Unknown [id number] 1959 Medicare [id number] 1959 Self-pay 1944 Unknown [id number] 2.16.840.1.073842.3.579.2.732 1944 Unknown [id number] 2.16.840.1.166919.3.579.2.593 1944 Unknown [id number] 2.16.840.1.092985.3.579.2.593 1944 Unknown [id number] 2.16.840.1.806493.3.579.2.593 1944 Unknown [id number] 2.16.840.1.229332.3.579.2.593 1944 Unknown [id number] 2.16.840.1.416826.3.579.2.593 1944 Unknown [id number] 2.16.840.1.759436.3.579.2.593 1944 Unknown [id number] 2.16.840.1.839356.3.579.2.593 1944 Unknown [id number] 2.16.840.1.008664.3.579.2.593 1944 Unknown [id number] 2.16.840.1.108626.3.579.2.593 1944 Unknown [id number] 2.16.840.1.202944.3.579.2.593 1944 Unknown [id number] 2.16.840.1.676025.3.579.2.593 1944 Unknown [id number] 2.16.840.1.255611.3.579.2.593 1944 Unknown [id number] 2.16.840.1.503444.3.579.2.593 1944 Unknown [id number] 2.16.840.1.234660.3.579.2.593 1944 Unknown [id number] 2.16.840.1.491832.3.579.2.593 1944 Unknown [id number] 2.16.840.1.623016.3.579.2.593 1944 Unknown [id number] 2.16.840.1.267336.3.579.2.593 1944 Unknown [id number] 2.16.840.1.260371.3.579.2.593 1944 Unknown [id number] 2.16.840.1.702622.3.579.2.593 1944 Unknown [id number] 2.16.840.1.187469.3.579.2.593 1944 Unknown [id number] 2.16.840.1.200302.3.579.2.593 1944 Unknown [id number] 2.16.840.1.824078.3.579.2.593 1944 Unknown [id number] 2.16.840.1.278942.3.579.2.593 1944 Unknown [id number] 2.16.840.1.152374.3.579.2.593 1944 Unknown [id number] 2.16.840.1.558324.3.579.2.593 1944 Unknown [id number] 2.16.840.1.999873.3.579.2.593 1944 Unknown [id number] 2.16.840.1.274467.3.579.2.593 1944 Unknown [id number] 2.16.840.1.262012.3.579.2.593 1944 Unknown [id number] 2.16.840.1.966387.3.579.2.593 1944 Unknown [id number] 2.16.840.1.553340.3.579.2.593 1944 Unknown [id number] 2.16.840.1.606906.3.579.2.593 1944 Unknown [id number] 2.16.840.1.134350.3.579.2.593 1944 Unknown [id number] 2.16.840.1.410783.3.579.2.593 1944 Unknown [id number] 2.16.840.1.287356.3.579.2.593 1944 Unknown [id number] 2.16.840.1.878220.3.579.2.593 1944 Unknown [id number] 2.16.840.1.661169.3.579.2.593 1944 Unknown [id number] 2.16.840.1.797430.3.579.2.593 1944 Unknown [id number] 2.16.840.1.626734.3.579.2.593 1944 Unknown [id number] 2.16.840.1.717369.3.579.2.593 1944 Unknown [id number] 2.16.840.1.646394.3.579.2.593 1944 Unknown [id number] 2.16.840.1.921858.3.579.2.593 1944 Unknown [id number] 2.16.840.1.638117.3.579.2.593 1944 Unknown [id number] 2.16.840.1.140237.3.579.2.593 1944 Unknown [id number] 2.16.840.1.258476.3.579.2.593 1944 Unknown [id number] 2.16.840.1.701481.3.579.2.593 1944 Unknown [id number] 2.16.840.1.597449.3.579.2.593 1944 Unknown [id number] 2.16.840.1.612931.3.579.2.125 9 1944 Unknown [id number] 2.16.840.1.452529.3.579.2.125 9 Medicare Medicare Outpatient [id number] 2T [id number] Unknown [id number] 2.16.840.1.646908.3.579.2.593 Unknown [id number] 2.16.840.1.648523.3.579.2.593 Unknown [id number] 2.16.840.1.778439.3.579.2.531 Social History Date Type Detail Facility Start: 03-09-2011 End: 07-07-2022 Tobacco smoking status VTIS Ex-smoker [facility] Work Phone: End: 02-15-1975 History of tobacco use Current smoker [facility] Work Phone: End: 02-15-1975 History of tobacco use Cigarette Smoker [facility] Work Phone: Start: 04-08-2021 End: 02-26-2022 Alcohol intake Current drinker of alcohol (finding) [facility] Start: 1945 Sex Assigned At Not on file [facility] Start: 03-09-2011 End: 10-20-2022 Cigarettes smoked current (pack per day) - Reported 1 [facility] Work Phone: Start: 03-09-2011 End: 02-26-2022 Tobacco use and exposure Smokeless tobacco non-user [facility] Start: 09-25-2021 History SDOH Financial 5 [facility] Start: 09-25-2021 History SDOH Food Worry 1 [facility] Start: 09-25-2021 History SDOH Transpo rt Med 2 [facility] Start: 09-14-2021 End: 01-12-2022 Exposure to SARS-CoV-2 (event) Not sure [facility] Start: 02-26-2022 End: 10-20-2022 Sex Assigned At [facility] Work Phone: Start: 1945 Sex Assigned At Male F [facility] How hard is it for y ou to pay for the very basics like food, housing, medical care, and heating Not hard at all [facility] Work Phone: (I/We) worried shiloh er (my/our) food would run out before (I/we) got money to buy more. Never true [facility] Work Phone: In the past 12 month s, was there a time when you were not able to pay the mortgage or rent on time? No [facility] Work Phone: Start: 03-18-2023 Alcohol intake Ex-drinker (finding) [facility] How often to you hav e a drink containing alcohol? Never [facility] Medical Equipment Procedure Code Equipment Code Equipment Original Text Equipment Identifier Dates Tray Powerline S urecuff 5fr Polyurethane Catheter 1 Lumen Microintroducer - [id number] Start: 12-06-2021 Clinical Notes 06-05-2021 to [...] at about 50-60 systolic. patient with friend/ compressed air pile driver operator from facility, we will take patient to the ER for evaluation ---- --------- Per dr. Alvarez 03/2021 Mr. Almonte, [place] , presents to clinic for routine follow [...] of the right coronary artery with robust xoxj-po-qanez collaterals. 5. Normal global left ventricular systolic [...] Follow up with Dr. Galvez in the [facility] in the next 2 weeks; he may follow up with Dr. Orosco as needed for interventional issues. 5. Follow up wi (more content not included)... [facility] 04-11-2023 Evaluation note Encounter Date Diagnosis Assessment [...] (ICD-10 - Z89.619) WC dependent. 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 He is being transported by a compressed air pile driver operator. 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 CONTINUOUS BLOOD GLUC SENSOR (bitHoundSTYLE SHAAN 14 DAY SENSOR) MISC Inject 1 [...] mouth in the morning. documented [facility] [id number] Evaluation note* Encounter Date Diagnosis Assessment Notes [...] are maintaining regular scheduled appts with their oyster preparer. No bleeding complications Dec, Hyperlipidemia LDL goal [...] balance and to avoid dehydration. Dec, senior care (current) use of insulin (ICD-10 - Z79.4) [facility] Other 10-26-2023 Evaluation note* Encounter Date Diagnosis Assessment Notes Treatment Notes Treatment Clinical Notes Nov, Longstanding persistent atrial fibrillation (ICD-10 - I48.11) This patient is in NSR or rate controlled. This patient is anticoagulated to prevent thromboembolic events. They are maintaining regular scheduled appts with their oyster preparer. No bleeding complications Nov, Hyperlipidemia LDL goal [...] Monthly labs to transplant clinic Nov, senior care (current) use of insulin (ICD-10 - Z79.4) [facility] Other 09-28-2023 Evaluation note* Encounter Date Diagnosis [...] are maintaining regular scheduled appts with their oyster preparer. No bleeding complications Oct, Type 1 diabetes [...] - Z94.0) Continue routine surveillance labs. Oct, senior care (current) use of insulin (ICD-10 - Z79.4) [facility] Other 09-01-2023 Miscellaneous Notes* Telephone Encounter - Mary Martinez - 10/16/2022 1:08 PM EDT Pharmacy comment: REQUEST FOR 90 DAYS PRESCRIPTION. DX Code Needed. 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 No bleeding complications Sep, Type 1 diabetes [...] for cerebrovascular and cardiovascular disease. 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 Please review and advise. Ariadna Mcdowell, documented in this encounterBl[facility] Evaluation note* Encounter Date Diagnosis Assessment Notes Treatment Notes Treatment Clinical Notes Aug, Longstanding persistent atrial fibrillation (ICD-10 - I48.11) This patient is in NSR or rate controlled. This patient is anticoagulated to prevent thromboembolic events. They are maintaining regular scheduled appts with their oyster preparer. No s/s bleeding Aug, Type 1 diabetes [...] for cerebrovascular and cardiovascular disease. Aug, senior care (current) use of insulin (ICD-10 - Z79.4) Aug, Kidney transplant status (ICD-10 - Z94.0) Continue close surveillance w/ labs [facility] Other 07-26-2023 NoteUT Electrophysiology Consult Note Reason for visit: follow up, last seen 03/2021, HFrEF, PPM, CAD s/p CABG HPI: Alex Almnote is a 76 y.o. year old with [...] at about 50-60 systolic. patient with friend/ compressed air pile driver operator from facility, we will take patient to the ER for evaluation --------- Per dr. Alvarez 03/2021 Mr. Almonte, [place] , presents to clinic for routine follow [...] of the right coronary artery with robust okgf-pj-uqvnp collaterals. 5. Normal global left ventricular systolic [...] Follow up with Dr. Galvez in the [facility] Hospital in the next 2 weeks; he may follow up with Dr. Orosco as needed for interventional issues. 5. Follow up with Dr. Devon Moreira as scheduled. PMH: Past Medical History: Diagnosis Date Abnormal ECG Arrhythmia Atrial fibrillation (CMS/HCC) Chronic kidney disease Coronary artery disease Diabetes mellitus (CMS/HCC) (more content not included)...[facility]07-26-2023 NotePatient here for 1.5 year follow up and device check. Lightheaded in the office today, as BP is very low. He denies chest pain, SOB, palpitations, and bleeding on warfarin. Had routine labs last week. Review of Systems Musculoskeletal: Positive for arthritis, joint pain and myalgias. Neurological: Positive for light-headedness. All other systems reviewed and are negative.[facility] 08-06-2022 Evaluation note* Encounter Date Diagnosis Assessment [...] are maintaining regular scheduled appts with their oyster preparer. No bleeding complications Jul, Type 1 diabetes [...] risk for cerebrovascular and cardiovascular disease. Jul, senior care (current) use of insulin (ICD-10 - Z79.4) Jul, Kidney transplant status (ICD-10 - Z94.0) Monthly labs, ongoing surveillance from transplant clinic [facility] Other 05-15-2023 Progress note Author Sadia Aguilar [facility] June 29, 2022 2:47pm Note Date/Time June 29, 2022 2:46p m [facility] [address] [place] [address] Wound Center Provider Note Signed Patient: Alex Almonte MR#: [id number] : 1945 Acct:[id number] Age/Sex: 76 / M Copies to: DO Sadia Whyte, VETERINARY LABORATORY TECHNICIAN~ HPI Date of Visit Date of Visit: Date of Service: 06/29/2022 Time of Service: 14:45 Narrative HPI: 12/30/21 Alex is a 76 year old male presenting to [facility] wound care for aninitial visit for eval and treatment of a sacral/coccyx area pressure ulcer. He resides at [facility]. There is an MIDDLEWARE CONSULTANT present for the visit. Medicalhoney gel will [...] his brief that was cleaned by this television writer as well as another nursing staff [...] from initial visit here Mode of Arrival/ Sewer Line Photo Inspector: Facility vehicle Assistive Device Used Today: Wheelchair and Indra Lives with:: Care/Nursing Facility Appetite Description: Within Normal Limits Who helps w/ dressing change?: Nursing Facility Why Do You Need Help?: Can't Reach Ulcer, Limited mobility and Taxing effort to leave home Smoking Status: Former smoker [facility] Medical History (Updated 03/03/22 @ 14:41 [...] Ulcer/Injury Staging: Unstageable Bed Appearance: Beefy Red, [place], Yellow and Rolled Edges Percent of Wound [...] <Electronically signed by DAVID Aguilar> 06/29/22 1447 [facility] [place] [facility] Work Phone: 1(211) 131-513705-11-2023 Evaluation note* Encounter Date Diagnosis Assessment Notes [...] are maintaining regular scheduled appts with their oyster preparer. No bleeding complications June, Hyperlipidemia LDL goal <100 (ICD-10 - E78.5) Instructed on diet and exercise with continued statin therapy.Discussed the beneficial effects of lowering cholesterol in reducing the risk for cerebrovascular and cardiovascular disease. 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 of insulin (ICD-10 - Z79.4) June, Kidney transplant status (ICD-10 - Z94.0) No s/s rejection [facility] Other 04-24-2023 Progress note Author Sadia Aguilar [facility] June 08, 2022 2:10pm Note Date/Time June 08, 2022 2:1 0pm [facility] [address] [place] [address] Wound Center Provider Note Signed Patient: Alex Almonte MR#: [id number] : 1945 Acct:[id number] Age/Sex: 76 / M Copies to: DO Sadia Whyte APRN~ HPI Date of Visit Date of Visit: Date of Service: 06/08/2022 Time of Service: 14:07 Narrative HPI: 12/30/21 Alex is a 76 year old male presenting to [facility] wound care for aninitial visit for eval and treatment of a sacral/coccyx area pressure ulcer. He resides at [facility]. There is an MIDDLEWARE CONSULTANT present for the visit. Medicalhoney gel will [...] his brief that was cleaned by this television writer as well as another nursing staff [...] from initial visit here Mode of Arrival/ Sewer Line Photo Inspector: Facility vehicle Assistive Device Used Today: Wheelchair and Indra Lives with:: Care/Nursing Facility Appetite Description: Within Normal Limits Who helps w/ dressing change?: Nursing Facility Why Do You Need Help?: Can't Reach Ulcer, Limited mobility and Taxing effort to leave home Smoking Status: Former smoker [facility] Medical History (Updated 03/03/22 @ 14:41 [...] Ulcer/Injury Staging: Unstageable Bed Appearance: Beefy Red, [place], Yellow and Rolled Edges Percent of Wound [...] <Electronically signed by DAVID Aguilar> 06/08/22 [facility] Work Phone: 1(443) 745-484004-21-2023 Evaluation note* Encounter Date Diagnosis Assessment Notes [...] are maintaining regular scheduled appts with their oyster preparer. 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 No open ulcerations present Pain controlled [facility] Other 03-27-2023 Progress note Author Sadia Aguilar [facility] May 11, 2022 1:41pm Note Date/Time May 11, 2022 1:4 0pm [facility] [address] [place] [address] Wound Center Provider Note Signed Patient: Alex Almonte MR#: [id number] : 1945 Acct:[id number] Age/Sex: 76 / M Copies to: DO Sadia Whyte, VETERINARY LABORATORY TECHNICIAN~ HPI Date of Visit Date of Visit: Date of Service: 05/11/2022 Time of Service: 13:38 Narrative HPI: 12/30/21 Alex is a 76 year old male presenting to [facility] wound care for aninitial visit for eval and treatment of a sacral/coccyx area pressure ulcer. He resides at [facility]. There is an MIDDLEWARE CONSULTANT present for the visit. Medicalhoney gel will [...] his brief that was cleaned by this television writer as well as another nursing staff [...] from initial visit here Mode of Arrival/ Sewer Line Photo Inspector: Facility vehicle Assistive Device Used Today: Wheelchair and Indra Lives with:: Care/Nursing Facility Appetite Description: Within Normal Limits Who helps w/ dressing change?: Nursing Facility Why Do You Need Help?: Can't Reach Ulcer, Limited mobility and Taxing effort to leave home Smoking Status: Former smoker [facility] Medical History (Updated 03/03/22 @ 14:41 [...] Ulcer/Injury Staging: Unstageable Bed Appearance: Beefy Red, [place] and Yellow Percent of Wound Bed Granulated/Red: [...] <Electronically signed by DAVID Aguilar> 05/11/22 1341 [facility] [place] [facility] Work Phone: 1(598) 816-317803-23-2023 Evaluation note* Encounter Date Diagnosis Assessment Notes [...] are maintaining regular scheduled appts with their oyster preparer. 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 Author Type: Physician Type: Progress Notes Filed: 04/24/2022 10:32 AM Note Text: Encounter opened in error, patient not seen.[facility]02-28-2023 Progress note Author Sadia Aguilar [facility] April 14, 2022 2:19pm Note Date/Time April 14, 2022 2:18pm [facility] [address] [place] [address] Wound Center Provider Note Signed Patient: Alex Almonte MR#: [id number] : 1945 Acct:[id number] Age/Sex: 76 / M Copies to: DO Sadia Whyte APRN~ HPI Date of Visit Date of Visit: Date of Service: 04/14/2022 Time of Service: 14:18 Narrative HPI: 12/30/21 Alex is a 76 year old male presenting to [facility] wound care for aninitial visit for eval and treatment of a sacral/coccyx area pressure ulcer. He resides at [facility]. There is an MIDDLEWARE CONSULTANT present for the visit. Medicalhoney gel will [...] his brief that was cleaned by this television writer as well as another nursing staff [...] from initial visit here Mode of Arrival/ Sewer Line Photo Inspector: Facility vehicle Assistive Device Used Today: Wheelchair and Indra Lives with:: Care/Nursing Facility Appetite Description: Within Normal Limits Who helps w/ dressing change?: Nursing Facility Why Do You Need Help?: Can't Reach Ulcer, Limited mobility and Taxing effort to leave home Smoking Status: Former smoker [facility] Medical History (Updated 03/03/22 @ 14:41 [...] Ulcer/Injury Staging: Unstageable Bed Appearance: Beefy Red, [place] and Yellow Percent of Wound Bed Granulated/Red: [...] By: <Electronically signed by DAVID Aguilar> 04/14/221418 [facility] Work Phone: 1(934) 612-517002-16-2023 NotePatient Outreach (KIMBERLY) ALEX ALMONTE ([id number]) 1945 M TRN Date Time Provider Department 04/02/22 VAN OLIVAREZ During your visit today, we recorded the following information about you: Allergies As of Date: 04/02/2022 Noted Allergy Reaction PYRIDOSTIGMINE BROMIDE 08/04/2021 8 - GI Upset Date Reviewed: 02/26/2022 Reviewed by: Braden Abel MA - Fully Assessed Visit Diagnosis:Screening for genitourinary condition [Z13.89] Order(s):URINALYSIS, REFLEX MICROSCOPIC [PFX3895] Order #: [id number] Prescriptions as of 04/06/2022 - tacrolimus IR [...] by mouth daily with lunch. 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 DIABETES UNCOMPL ADULT-UNCONTRLLED [DTL5738] 02/24/2002 KIDNEY TRANSPLANT STATUS [Z94.0] 09/07/2003 PROPHYLACTIC IMMUNOTHERAPY [Z29.8] 07/30/2006 JAIL STEROIDS [[id number]] 07/30/2006 VITAMIN D DEFICIENCY NOS [E55.9] 09/07/2008 [...] diabetes mellitus with diabetic peripher*11/29/2021 Atherosclerosis of [place] artery of extremity w*11/29/2021 Malnutrition of moderate degree (HCC) [E44.0] 12/01/2021 Dermatitis associated with moisture [L30.8] 12/04/2021 Encounter Status:Closed by LUISA HOBBSUSER on 04/06/22[facility] 03-30-2022 Miscellaneous Notes* Telephone Encounter - [...] to pharmacy. Katina Duque documented in this encounterBlanchard [facility] Progress note Author Sadia Aguilar [facility] March 24, 2022 3:00pm Note Date/Time March 24, 2022 2 :59pm [facility] [address] [place] [address] Wound Center Provider Note Signed Patient: Alex Almonte MR#: [id number] : 1945 Acct:[id number] Age/Sex: 76 / M Copies to: Devon Moreira,DO Sadia Aguilar, VETERINARY LABORATORY TECHNICIAN~ HPI Date of Visit Date of Visit: Date of Service: 03/24/2022 Time of Service: 14:58 Narrative HPI: 12/30/21 Alex is a 76 year old male presenting to [facility] wound care for aninitial visit for eval and treatment of a sacral/coccyx area pressure ulcer. He resides at [facility]. There is an MIDDLEWARE CONSULTANT present for the visit. Medicalhoney gel will [...] his brief that was cleaned by this television writer as well as another nursing staff [...] from initial visit here Mode of Arrival/ Sewer Line Photo Inspector: Facility vehicle Assistive Device Used Today: Wheelchair and Indra Lives with:: Care/Nursing Facility Appetite Description: Within Normal Limits Who helps w/ dressing change?: Nursing Facility Why Do You Need Help?: Can't Reach Ulcer, Limited mobility and Taxing effort to leave home Smoking Status: Former smoker [facility] Medical History (Updated 03/03/22 @ 14:41 [...] Ulcer/Injury Staging: Unstageable Bed Appearance: Beefy Red, [place] and Yellow Percent of Wound Bed Granulated/Red: [...] <Electronically signed by DAVID Aguilar> 03/24/22 1500 [facility] [place] [facility] Work Phone: 1(251) 962-302901-17-2023 Progress note Author Sadia Aguilar [facility] March 03, 2022 2:41pm Note Date/Time March 03, 2022 2 :41pm [facility] [address] [place] [address] Wound Center Provider Note Signed Patient: Alex Almonte MR#: [id number] : 1945 Acct:[id number] Age/Sex: 76 / M Copies to: DO Sadia Whyte APRN~ HPI Date of Visit Date of Visit: Date of Service: 03/03/2022 Time of Service: 14:38 Narrative HPI: 12/30/21 Alex is a 76 year old male presenting to [facility] wound care for aninitial visit for eval and treatment of a sacral/coccyx area pressure ulcer. He resides at [facility]. There is an MIDDLEWARE CONSULTANT present for the visit. Medicalhoney gel will [...] his brief that was cleaned by this television writer as well as another nursing staff [...] from initial visit here Mode of Arrival/ Sewer Line Photo Inspector: Facility vehicle Assistive Device Used Today: Wheelchair and Indra Lives with:: Care/Nursing Facility Appetite Description: Within Normal Limits Who helps w/ dressing change?: Nursing Facility Why Do You Need Help?: Can't Reach Ulcer, Limited mobility and Taxing effort to leave home Smoking Status: Former smoker [facility] Medical History (Updated 03/03/22 @ 14:41 [...] Ulcer Pressure Ulcer/Injury Staging: Unstageable Bed Appearance: [place] and Yellow Percent of Wound Bed Granulated/Red: 90 Percent of Devitalized: 10 Length (cm): 2.2 Width (cm): 1.8 Depth (cm): 1.9 CM Sq: 3.960 Surrounding Tissue Appearance: [place], Hyperpigmented and Satellite lesions Surrounding Tissue Temp: [...] <Electronically signed by DAVID Aguilar> 03/03/22 1441 [facility] Work Phone: 1([phone]) 250-331401-13-2023 Miscellaneous Notes* Telephone Encounter - RAUL Davidson - 02/27/2022 10:24 AM EST Patient phones requesting refills as follows: Per pts sister takes 1 mg in AM and 1 mg in PM Requested Prescriptions Pending Prescriptions Disp Refills tacrolimus IR (PROGRAF) 1 mg capsule Sig: Take 2 capsules by mouth DAILY (6 AM). Please review and advise. RAUL Davidson documented in this encounterBlanchard [facility]01-[facility]23 NoteHNO ID: [id number] Author: Hina Peterson MD Service: ? 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 Patient on mycophenolate mofetil , cellcept and prednisone Mixed hyperlipidemia due to type 2 diabetes mellitus ([facility]) 11/29/2021 Osteomyelitis ([facility]) 11/29/2021 Paroxysmal atrial fibrillation ([facility]) Renal transplant, status post SA node dysfunction ([facility]) s/p pacemaker Type 2 diabetes mellitus with diabetic neuropathy, with long-term current use of insulin ([facility]) 02/24/2002 PAST SURGICAL HISTORY Procedure Laterality [...] by mouth daily with lunch. Magic Cup [place] with lunch aspirin, enteric coated (ASPIRIN, ENTERIC COATED) 81 mg EC tablet Take 1 tablet by mouth once daily. predniSONE (DELTASONE) 5 mg tablet TAKE 1 TABLET BY MOUTH EVERY DAY oxyCODONE IR (ROXICODONE) 5 mg immediate release tablet 1-2 tablets by ORAL/FEEDING TUBE route every 3 hours as needed. Food Supplement, Lactose-Free (ENSURE MAX (more content not included)... [facility]01-12-2023 History of Present illness Narrative* Hina Peterson MD - 02/26/2022 4:25 PM EST Images from the original note were not included. [facility] DEPARTMENT OF VASCULAR SURGERY OUTPATIENT VISIT DATE [...] at the [facility] facility. He comes here with a lateral wound eschar. He denies any fevers, chills, or any drainage. He is on anticoagulation. 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 Patient on mycophenolate mofetil ,cellcept and prednisone 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) 11/29/2021 Osteomyelitis ([facility]) 11/29/2021 Paroxysmal atrial fibrillation ([facility]) Renal transplant, status post SA node dysfunction ([facility]) s/p pacemaker Type 2 diabetes mellitus with diabetic neuropathy, with long-term current use of insulin ([facility]) 02/24/2002 PAST SURGICAL HISTORY Procedure Laterality [...] by mouth daily with lunch. Magic Cup [place] with lunch aspirin, enteric coated (ASPIRIN, ENTERIC [...] 2022 TIME: 4:26 PM documented in this encounterBlanchard Valley [facility]01-05-2023 Miscellaneous Notes* Telephone Encounter - Gwen [...] Home and cell number(Ask for Alex's nurse) [phone] Diagnosis 4 mo f/u wound check Best regardsYumiko documented in this encounterBlanchard Valley Health [facility]01-05-2023 Miscellaneous Notes* Telephone Encounter - Augusta Medrano RN - 02/19/2022 11:11 AM EST Aelx Almonte's nursing facility, [facility], called regarding elevated tacrolimus level (23.9). Spoke with bedside nurse, mukul Enriquez. Level is from last week- unable to clearly determine if medications were held prior to lab work. Reviewed with nurse morning labs should occur prior to lab draws. Patient is scheduled for repeat labs tomorrow. Will assess new level. Augusta Medrano RN documented in this encounterBlanchard Valley Health [facility]01-04-2023 Miscellaneous Notes* Telephone Encounter - Martina [...] advise. Mercedez Tavares MA documented in this encounterBlanchard Valley Health [facility]12-27-2022 Progress note Author Sadia Aguilar [facility] February 10, 2022 3:47pm Note Date/Time February 10, 2022 3:47pm [facility] [address] [place] [address] Wound Center Provider Note Signed Patient: Alex Almonte MR#: [id number] : 1945 Acct:[id number] Age/Sex: 76 / M Copies to: DO Sadia Whyte APRN~ HPI Date of Visit Date of Visit: Date of Service: 02/10/2022 Time of Service: 15:44 Narrative HPI: 12/30/21 Alex is a 76 year old male presenting to [facility] wound care for aninitial visit for eval and treatment of a sacral/coccyx area pressure ulcer. He resides at [facility]. There is an MIDDLEWARE CONSULTANT present for the visit. Medicalhoney gel will [...] his brief that was cleaned by this television writer as well as another nursing staff member, few weeks to follow up Subjective Pain Coccyx: Pain Description: Intermittent Pain Intensity: 0 Wound/Ulcer History When did wound start?: 4 weeks ago- from initial visit here Mode of Arrival/ Sewer Line Photo Inspector: Facility vehicle Assistive Device Used Today: Wheelchair and Indra Lives with:: Care/Nursing Facility Appetite Description: Within Normal Limits Who helps w/ dressing change?: Nursing Facility Why Do You Need Help?: Can't Reach Ulcer, Limited mobility and Taxing effort to leave home Smoking Status: Former smoker [facility] Medical History (Updated 01/20/22 @ 14:21 [...] Ulcer Pressure Ulcer/Injury Staging: Unstageable Bed Appearance: [place] and Yellow Percent of Wound Bed Granulated/Red: 90 Percent of Devitalized: 10 Length (cm): 2.5 Width (cm): 2.3 Depth (cm): 2.1 CM Sq: 5.750 Surrounding Tissue Appearance: [place], Hyperpigmented and Satellite lesions Surrounding Tissue Temp: [...] <Electronically signed by DAVID Aguilar> 02/10/22 154 [facility] Work Phone: 1(555) 621-669012-22-2022 NoteHNO ID: [id number] Author: Asia Pike MD Service: ? Author Type: Physician Type: Progress Notes Filed: 02/05/2022 9:38 AM Note Text: [facility] Transplant Follow up Portions of this note [...] and snacks patient declined. Indra scale at [facility]: 166.2 lbs per patient. Bed sore on coccyx causing discomfort. Being changed regularly at SNF- reported to be smaller around but still as deep. Patient not very up to date with medications. Patient brought paperwork from [facility] with all medications being received. Patient unsure if they have been drawing labs regularly. Last Tac from 01/19: 12.9 and K 5.9. In need of current labs. Lab orders will be sent with patient and follows as below: Kidney and Pancreas Transplant Standing Lab Orders [id number] [facility] [address] [place], [place] [address] February 05, 2022 Alex Almonte 1945 [id number] STANDARD TESTING: Diagnosis Codes: Z94.0 Kidney Transplant [...] AT YOUR LABORATORY FACILITY AND FAX TO [phone]. PLEASE CALL [phone]. Provider: Dr. Pike Current Outpatient Medications Medication [...] by mouth daily with lunch. Magic Cup [place] with lunch aspirin, enteric coated (ASPIRIN, ENTERIC COATED) 81 mg EC tablet Take 1 tablet by mouth once daily. atorvastatin (LIPITOR) 40 mg tablet 1 tablet by ORAL/FEEDING TUBE route daily at bedtime. (more content not included)...[facility]12-22-20[facility] History of Present illness Narrative* Asia Pike MD - 02/05/2022 8:20 AM EST Images from the original note were not included. [facility] Transplant Follow up Portions of this note [...] and snacks patient declined. Indra scale at [facility]: 166.2 lbs per patient. Bed sore on coccyx causing discomfort. Being changed regularly at [facility]- reported to be smaller around but still as deep. Patient not very up to date with medications. Patient brought paperwork from [facility] with all medications being received. Patient unsure if they have been drawing labs regularly. Last Tac from 12/5: 12.9 and K 5.9. In need of current labs. Lab orders will be sent with patient and follows as below: Kidney and Pancreas Transplant Standing Lab Orders [id number] [place], [place] [address] February 05, 2022 Alex Almonte 1945 [id number] STANDARD TESTING: Diagnosis Codes: Z94.0 Kidney Transplant [...] AT YOUR LABORATORY FACILITY AND FAX TO [phone]. PLEASE CALL [phone]. Provider: Dr. Pike Current Outpatient Medications Medication [...] by mouth daily with lunch. Magic Cup [place] with lunch aspirin, enteric coated (ASPIRIN, ENTERIC [...] All other system reviews negative. Augusta Medrano, ladies' locker room attendant: February 05, 2022 9:34 AM I have [...] complexity. Asia Pike MD documented in this encounterBlanchard Valley [facility]12-06-2022 Progress note Author Sadia Aguilar [facility] January 20, 2022 2:21pm Note Date/Time January 20, 2022 2 :21pm [facility] [address] [place] [address] Wound Center Provider Note Signed Patient: Alex Almonte MR#: [id number] : 1945 Acct:[id number] Age/Sex: 76 / M Copies to: DO Sadia Whyte APRN~ HPI Date of Visit Date of Visit: Date of Service: 01/20/2022 Time of Service: 14:17 Narrative HPI: 12/30/21 Alex is a 76 year old male presenting to [facility] wound care for aninitial visit for eval and treatment of a sacral/coccyx area pressure ulcer. He resides at [facility]. There is an MIDDLEWARE CONSULTANT present for the visit. Medicalhoney gel will [...] from initial visit here Mode of Arrival/ Sewer Line Photo Inspector: Facility vehicle Assistive Device Used Today: Wheelchair and Indar Lives with:: Care/Nursing Facility Appetite Description: Within Normal Limits Who helps w/ dressing change?: Nursing Facility Why Do You Need Help?: Can't Reach Ulcer, Limited mobility and Taxing effort to leave home Smoking Status: Former smoker [facility] Medical History (Updated 01/20/22 @ 14:21 [...] Ulcer Pressure Ulcer/Injury Staging: Unstageable Bed Appearance: [place] and Yellow Percent of Wound Bed Granulated/Red: 40 Percent of Devitalized: 60 Length (cm): 5.2 Width (cm): 3.4 Depth (cm): 1.8 CM Sq: 17.680 Surrounding Tissue Appearance: [place] and Hyperpigmented Surrounding Tissue Temp: Warm Drainage [...] <Electronically signed by DAVID Aguilar> 01/20/22 [facility] Work Phone: 1(789) 404-520612-06-2022 Miscellaneous Notes* Telephone Encounter - Van Olivarez APRN.BORDER MEASURER - 01/20/2022 1:12 PM EST Labs noted from yesterday. Pt is currently residing at [facility], I spoke with the Nurse, the results has been addressed by Physician caring for pt. He had been placed on Chlor Con and this has been discontinued and hyperkalemia has been treated. Van Olivarez APRN.DIAMANTE documented in this encounterBlanchard [facility]11-28-[facility]22 Surgical operation note* Brief Op Note - Misbah Landis PA-C - 01/12/2022 10:41 AM EST BRIEF OPERATIVE / PROCEDURE NOTE LOG ID: [id number] SURGERY/PROCEDURE DATE: 01/12/2022 INCISION/PROCEDURE START TIME: 10:32 AM INCISION CLOSE/PROCEDURE END TIME: 10:35 AM SURGEON(S)/PROCEDURALIST(S) AND CRIMINOLOGY TEACHER(S): Misbah Landis PA-C SURGERY/PROCEDURE(S): Removal tunneled vascular access catheter under local anesthesia ANESTHESIA: Procedural Sedation FINDINGS: Catheter removed intact ESTIMATED BLOOD LOSS: 0 ml SPECIMENS: None COMPLICATIONS: None PRE-OP/PRE-PROCEDURE DIAGNOSIS: Foot Ulcer POST-OP/POST-PROCEDURE DIAGNOSIS: Same as Preop SIGNATURE: Misbah Landis PA-C PATIENT NAME: Alex Almonte DATE: January 12, 2022 TIME: 10:42 AM documented in this encounterBlanchard Valley [facility]11-22-2022 Nurse Note* Laxmi Archibald RN - 01/06/2022 1:55 PM EST Pre-procedure instructions: Contacted patient's sister, Munira Brothers and nurse at [facility] ([phone]) andconfirmed appt. for Gerhard removal scheduled on 01/12/22, at [facility]. If instructions are not followed [...] signed. Arrival at 9:30am to desk QB-1 ([facility]) and check in for your procedure. Radar Engineering Teacher/Transportation: How will you be arriving for your procedure? Ambulance service. To be arranged by [facility]. If you develop any of the following symptoms before your procedure, please call [phone]. Chills, joint pain, rash, sore throat, cough, loss of smell, reddened eyes, vomiting, abdominal pains, diarrhea, loss of taste, severe headache, weakness, bruising or bleeding, fever, muscle pain, shortness of breath Recovery expectations: You can expect to be in recovery for 30 minutes following the procedure. Written instructions provided to patient via [employer] If you have any questions please call [phone] documented in this encounterBlanchard Valley [facility]11-15-2022 Progress note Author Sadia Aguilar [facility] December 30, 2021 1:49pm Note Date/Time December 30, 2021 1:49pm [facility] [address] [place] [address] Wound Center Provider Note Signed Patient: Alex Almonte MR#: [id number] : 1945 Acct:[id number] Age/Sex: 76 / M Copies to: DO Sadia Whyte APRN~ HPI Date of Visit Date of Visit: Date of Service: 12/30/2021 Time of Service: 13:44 Narrative HPI: 12/30/21 Alex is a 76 year old male presenting to [facility] wound care for aninitial visit for eval and treatment of a sacral/coccyx area pressure ulcer. He resides at [facility]. There is an MIDDLEWARE CONSULTANT present for the visit. Medicalhoney gel will [...] start?: 4 weeks ago Mode of Arrival/ Sewer Line Photo Inspector: Facility vehicle Assistive Device Used Today: Wheelchair and Indra Lives with:: Care/Nursing Facility Appetite Description: Within Normal Limits Who helps w/ dressing change?: Nursing Facility Why Do You Need Help?: Can't Reach Ulcer, Limited mobility and Taxing effort to leave home Smoking Status: Former smoker [facility] Medical History (Updated 12/30/21 @ 13:49 [...] 0.1 CM Sq: 38.500 Surrounding Tissue Appearance: [place] and Hyperpigmented Surrounding Tissue Temp: Warm Drainage [...] <Electronically signed by DAVID Aguilar> 12/30/21 134[address] [facility] Work Phone: 1(856) 429-473011-15-2022 History of Present illness Narrative* Paresh Fonseca [...] the rehab facility He is currently at [facility] in [facility] Seen on video together with [...] has local wound care following this at [facility] WBC 6.0, creatinine -- 0.8. alt [...] by mouth daily with lunch. Magic Cup [place] with lunch aspirin, enteric coated (ASPIRIN, ENTERIC [...] is a 76 year old male from [facility]. 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 History of PAD CAD status post CABG, diabetes, atrial fibrillatioN He originally presented [facility] for having altered mental status [...] 3. Status post right heel I&D at [facility] on 11/24/2021. 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 4. CKD - s/p gerhard placement 5. immunocompromised Status post right open above the ankle [id number] - Enterobacter and MRSA from cultures Gram-positive [...] will need to coordinate with his SNF [phone] --our ID office will need to arrange for IR gerhard removal. Return to ID as needed 10 Minutes spent via virtual visit. SIGNATURE: Paresh Fonseca MD PATIENT NAME: Alex Almonte DATE: December 30, 2021 TIME: 9:52 AM documented in this encounterBlanchard Valley [facility]11-01-2022 Miscellaneous Notes* Telephone Encounter - Sulma Pardo - 12/16/2021 3:13 PM EDT Pt manager therapy is requesting orders for Stomp ampushield to be taken off pressure relief because it is causing sores on the thigh. Thanks, Sulma Pardo Pinmaker documented in this encounterBlanchard Valley [facility]10-31-2022 Miscellaneous Notes* Telephone Encounter - Gwen Alfredo Adm Asst I - 12/15/2021 4:11 PM EDT Rupa LYLES from [facility] [phone] called to report IV Vancomycin was started until today. Patient missed 3 days, should patient makeup missed doses? Please advise. Gwen Alfredo Adm Asst I documented in this encounterBlanchard Valley [facility]10-21-2022 Instructions* Patient Instructions* Paresh Fonseca MD [...] serious illness Are taking any medications (prescription, cfmf-taq-olifjkd, vitamins, or herbal products) How will I receive EVUSHELD? EVUSHELD consists of two investigational medicines, tixagevimab and cilgavimab. You will receive 1 dose of EVUSHELD, consisting of 2 separate injections (tixagevimab and cilgavimab). EVUSHELD will be given to you by your healthcare provider as 2 intramuscular injections, given one after the other. Viruses can change consultant time (mutate) and develop into a slightly [...] by certain SARS-CoV-2 variants: Viruses can change consultant time (mutate) and develop into a slightly [...] treatment or prevention of COVID-19 go to https://www.fda.gov/nomhpugfx-pzzpkmglkjsq-oja- response/mvu-miqjd-arwbkkejff-pfh-fehcao-djmnxbner/qvobgcdds-jup-rzosjlrhqqkot for more information. It is your choice [...] not go away. Report side effects to [employer] at www.TrustDegrees.gov/medPasspack or call 2-711-TXB-2041 or call [employer] . Additional Information If you have questions, visit the website or call the telephone number provided below. Website Telephone number http://S[employer]ice Endeavors How can I learn more about COVID-19? Ask your healthcare provider. Visit https://www.cdc.gov/COVID19 Contact your local or state public health department. What is an Emergency Use Authorization? The [place] FDA has made EVUSHELD (tixagevimab co-packaged with cilgavimab) available under an emergency access mechanism called an Emergency Use Authorization EUA. The EUA is supported by a [place] of Health and Human Service (HHS) declaration [...] monohydrate, polysorbate 80, sucrose, water. Distributed by: [employer] [place], [place] Manufactured for: [employer] [place] [place] [employer] 2021. All rightsreserved. documented in this encounterBlanchard Valley [facility]10-21-2022 Miscellaneous Notes* Telephone Encounter - Paresh Fonseca MD - 12/05/2021 3:05 PM EDT Evusheld (tixagevimab/cilgavimab) Eligibility and Patient Discussion The patient agrees to receive Evusheld (tixagevimab 300 mg and cilgavimab 300 mg) at [place]. The patient verbalized understanding of repeating a COVID test 72 hours prior to the injections. called up patient in response to her [employer] message today she tested covid negative on a rapid test on Wednesday this week Discussed evushed fact sheet and she agrees to proceed she will retest again today to be scheduled for Friday 12/08 at [facility] Paresh Fonseca MD documented in this encounterBlanchard Valley [facility]10-03-2022 Instructions* Patient Instructions* No Reeder DO - 11/17/2021 4:26 PM EDT -- continue coumadin -- will get vascular ultrasound for vein and artery of your right leg -- will have you see my interventional cardiology partner regarding your peripheral artery disease and if your artery disease is impairing your wound healing for the leg ulcer documented in this encounterBlanchard Valley [facility]10-03-2022 History of Present illness Narrative* No Reeder DO - 11/17/2021 3:53 PM EDT Images from the original note were not included. Heart and Vascular [facility] Glenroy Verdugo Department of Cardiovascular Medicine SECTION [...] Leg elevation. No Reeder DO, [facility] Vascular Medicine documented in this encounterBlanchard Valley [facility]08-16-2022 History of Past illness Narrative* Problem Noted Date Resolved Date Altered tissue perfusion documented as of this encounter (statuses as of 09/30/2021) [address]16-2022 History of Past illness Narrative* Problem Noted Date Resolved Date Altered tissue perfusion documented as of this encounter (statuses as of 10/09/2021) [address]16-2022 History of Past illness Narrative* Problem Noted Date Resolved Date Altered tissue perfusion documented as of this encounter (statuses as of 11/18/2021) [address]16-2022 History of Past illness Narrative* Problem Noted Date Resolved Date Altered tissue perfusion documented as of this encounter (statuses as of 12/01/2021) [address]16-2022 History of Past illness Narrative* Problem Noted Date Resolved Date Altered tissue perfusion documented as of this encounter (statuses as of 12/05/2021) [address]16-2022 History of Past illness Narrative* Problem Noted Date Resolved Date Altered tissue perfusion 16/2 022 documented as of this encounter (statuses as of 12/08/2021) [address]16-2022 History of Past illness Narrative* Problem Noted Date Resolved Date Altered tissue perfusion 16/2 022 documented as of this encounter (statuses as of 12/08/2021) [address]16-2022 History of Past illness Narrative* Problem Noted Date Resolved Date Altered tissue perfusion 16/2 022 documented as of this encounter (statuses as of 12/12/2021) [address]16-2022 History of Past illness Narrative* Problem Noted Date Resolved Date Altered tissue perfusion 16/2 022 documented as of this encounter (statuses as of 12/15/2021) [address]16-2022 History of Past illness Narrative* Problem Noted Date Resolved Date Altered tissue perfusion 16/2 022 documented as of this encounter (statuses as of 12/16/2021) [address]16-2022 History of Past illness Narrative* Problem Noted Date Resolved Date Altered tissue perfusion 16/2 022 documented as of this encounter (statuses as of 12/31/2021) [address]16-2022 History of Past illness Narrative* Problem Noted Date Resolved Date Altered tissue perfusion 16/2 022 documented as of this encounter (statuses as of 01/13/2022) [address]16-2022 History of Past illness Narrative* Problem Noted Date Resolved Date Altered tissue perfusion 16/2 022 documented as of this encounter (statuses as of 01/20/2022) [address]16-2022 History of Past illness Narrative* Problem Noted Date Resolved Date Altered tissue perfusion 16/2 022 documented as of this encounter (statuses as of 02/06/2022) [address]16-2022 History of Past illness Narrative* Problem Noted Date Resolved Date Altered tissue perfusion /16/2 022 documented as of this encounter (statuses as of 02/20/2022) [address]16-2022 History of Past illness Narrative* Problem Noted Date Resolved Date Altered tissue perfusion /16/2 022 documented as of this encounter (statuses as of 02/26/2022) [address]16-2022 History of Past illness Narrative* Problem Noted Date Resolved Date Altered tissue perfusion documented as of this encounter (statuses as of 02/27/2022) [address]16-2022 History of Past illness Narrative* Problem Noted Date Resolved Date Altered tissue perfusion documented as of this encounter (statuses as of 03/21/2022) [address]16-2022 History of Past illness Narrative* Problem Noted Date Resolved Date Altered tissue perfusion documented as of this encounter (statuses as of 03/30/2022) [address]16-2022 History of Past illness Narrative* Problem Noted Date Resolved Date Altered tissue perfusion documented as of this encounter (statuses as of 04/06/2022) [address]16-2022 History of Past illness Narrative* Problem Noted Date Resolved Date Altered tissue perfusion documented as of this encounter (statuses as of 05/13/2022) [address]16-2022 History of Past illness Narrative* Problem Noted Date Diagnosed Date Resolved Date Altered tissue perfusion documented as of this encounter (statuses as of 2022) [address]16-2022 History of Past illness Narrative* Problem Noted Date Diagnosed Date Resolved Date Altered tissue perfusion documented as of this encounter (statuses as of 10/29/2022) [facility]08-16-2022 Miscellaneous Notes* Telephone Encounter - Katina [...] to pharmacy. Katina Duque documented in this encounterBlanchard Valley [facility]05-31-2022 Miscellaneous Notes* Telephone Encounter - Van [...] advise. Rosibel Yehleela Adm documented in this encounterBlanchard Valley [facility]04-21-2022 Miscellaneous Notes* Telephone Encounter - Van Olivarez APRN.CNP - 06/05/2021 4:46 PM EDT Spoke with pt regarding latest results, scr. at baseline. TAC level 8.6 prev two levels in 5 range.He believes latest level would be 12hr trough. No changes for now, if next level >7, can consider if reduction appropriate. He understands. Van Olivarez APRN.CNP [facility]Ad[facility]* Diagnosis Screening for genitourinary condition Screening for other and unspecified genitourinary condition documented in this encounter [facility] note* Diagnosis Acute deep vein thrombosis (DVT) of proximal end of right lower extremity (HCC)- Primary PAD (peripheral artery disease) ([facility]) Peripheral vascular disease, unspecified Nonhealing ulcer of heel (HCC) Anticoagulation management encounter Encounter for therapeutic drug monitoring documented in this encounter [facility] note* Diagnosis Encounter for prophylactic measures, unspecified- Primary documented in this encounter [facility] note* Diagnosis Kidney replaced by transplant- Primary documented in this encounter [facility] note* Diagnosis MRSA bacteremia- Primary Bacteremia Diabetic foot ulcer with osteomyelitis (HCC) Type II or unspecified type diabetes mellitus with other specified manifestations, not stated as uncontrolled ILIANA (acute kidney injury) ([facility]) Acute kidney failure, unspecified documented in this encounter [facility] note* Diagnosis Kidney replaced by transplant- Primary 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 termite inspector current use of immunosuppressive drug documented in this encounter [facility]* Diagnosis Hx of BKA, right ([facility])- Primary PAD (peripheral artery disease) ([facility]) Peripheral vascular disease, unspecified Mixed hyperlipidemia due to type 2 diabetes mellitus ([facility]) Type II or unspecified type diabetes mellitus with renal manifestations, uncontrolled(250.42) Type II or unspecified type diabetes mellitus with renal manifestations, uncontrolled Type 2 diabetes mellitus with diabetic neuropathy, with long-term current use of insulin (HCC) Type 2 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, with long-term current use of insulin ([facility]) Paroxysmal atrial fibrillation ([facility]) Atrial fibrillation documented in this encounter [facility]* Diagnosis Screening for genitourinary condition Screening for other and unspecified genitourinary condition documented in this encounter [facility] note* Diagnosis Onset Date Resolution Status At high risk for skin breakdown chronic Diabetes chronic Fecal incontinence chronic Limited mobility chronic Poor appetite chronic Pressure ulcer of sacral region, unstageable chronic Candidiasis resolved [facility] Work Phone: Evaluation noteNo [employer] Other Evaluation note* Diagnosis Kidney replaced by transplant- Primary documented in this encounter [facility]* Diagnosis Type 1 diabetes mellitus [...] COLONOSCOPY 1995,2001, 2014 Hospitalization History see above [employer] Other Progress note Author Sadia Aguilar [facility] July 20, 2022 1:48pm Note Date/Time July 20, 2022 1:48p m [facility] [address] [place] [address] Wound Center Provider Note Signed Patient: Alex Almonte MR#: [id number] : 1945 Acct:[id number] Age/Sex: 76 / M Copies to: DO Sadia Whyte, DAVID~ HPI Date of Visit Date of Visit: Date of Service: 07/20/2022 Time of Service: 13:46 Narrative HPI: 12/30/21 Alex is a 76 year old male presenting to [facility] wound care for aninitial visit for eval and treatment of a sacral/coccyx area pressure ulcer. He resides at [facility]. There is an MIDDLEWARE CONSULTANT present for the visit. Medicalhoney gel will [...] his brief that was cleaned by this television writer as well as another nursing staff [...] from initial visit here Mode of Arrival/ Sewer Line Photo Inspector: Facility vehicle Assistive Device Used Today: Wheelchair and Indra Lives with:: Care/Nursing Facility Appetite Description: Within Normal Limits Who helps w/ dressing change?: Nursing Facility Why Do You Need Help?: Can't Reach Ulcer, Limited mobility and Taxing effort to leave home Smoking Status: Former smoker [facility] Medical History (Updated 03/03/22 @ 14:41 [...] <Electronically signed by DAVID Aguilar> 07/20/22 134[address] [facility] Work Phone: Reason for referral (narrative)* Outpatient Procedure (Routine) - Authorized Specialty Diagnoses / Procedures Referred By Felicia carreno [facility] Diagnoses PAD (peripheral artery disease) (HCC) Nonhealing ulcer of heel (HCC) Procedures US LEG ARTERIAL PERIPH UNL VAS LAB DUP-SCAN LXTR ART/ARTL BPGS UNI/LMTD STUDY No Reeder DO [address] [place] [id number] [facility] [address] [address] Referral ID Status Reason Start Date Expiration Date Visits Requested Visits Authorized [id number] Authorized Auto-Generat ed Referral 11/17/2021 11/17/2022 1 1 * Outpatient Procedure (Routine) - Authorized Specialty Diagnoses / Procedures Referred By Contac t Referred To Contact [facility] Diagnoses Acute deep vein thrombosis (DVT) of proximal end of right lower extremity (HCC) Procedures US LEG VEIN DVT UNL VAS LAB DUP-SCAN XTR VEINS UNILATERAL/LIMITED STUDY No Reeder DO [address] [place] [address] [place] [address] Referral ID Status Reason Start Date Expiration Date Visits Requested Visits Authorized [id number] Authorized Auto-Generat ed Referral 11/17/2021 11/17/2022 1 1 * Consult, Test, Treat (Routine) - Authorized Specialty Diagnoses / Procedures Referred By Contac t Referred To Contact Cardiology Diagnoses PAD (peripheral artery disease) ([facility]) Nonhealing ulcer of heel ([facility]) Procedures CONSULT TO CARDIOLOGY OFFICE/OUTPATIENT [facility] 60-[place] [address] [place] [address] Referral ID Status Reason Start Date Expiration Date Visits Requested Visits Authorized [id number] Authorized PCP Requested Referral 11/17/2021 11/17/2022 1 1 [facility] Summary Purpose Family History No Family History Records Found Relationship Condition Age at Onset Recorded Date/T kartik father Aneurysm Unknown father Parkinson's disease Unknown Advance Directives No Advanced Directives Records FoundDocuments on File Type Date Recorded Patient Contact Center Rep Expl anation Advance Directive(s) Latest Code Status [...] Maker Relationship: M ajority of Adult Siblings (provider service representative) DNR-CCA 09/26/2021 11:56 AM 10/01/2021 [...] Decision Maker Relationship: Majority of Adult Siblings (provider service representative) Code Status History Code Status [...] and content) DATE CREATED AUTHOR 02/20/2021 [facility] [employer] DATE CREATED AUTHOR AUTHOR'S ORGANIZ ATION 07/25/2022 [facility] DATE CREATED AUTHOR AUTHOR'S ORGANIZ ATION 08/16/2022 [facility] DATE CREATED AUTHOR AUTHOR'S ORGANIZ ATION 01/14/2023 [facility] DATE CREATED AUTHOR AUTHOR'S ORGANIZ ATION 05/25/2023 [facility] DATE CREATED AUTHOR AUTHOR'S ORGANIZ ATION 06/19/2023 [facility] EPIC Source Comments (unrecognize d section and content) In the event this informatio n is protected by the Federal Confidentiality of Alcohol and Drug Abuse Patient Records regulations: The Federal rules restrict any use of the information to criminally investigate or prosecute any alcohol or drug abuse patient.[facility] HospitalIn the event this information is protected by the Federal Confidentiality of Alcohol and Drug Abuse Patient Records regulations: The Federal rules restrict any use of the information to criminally investigate or prosecute any alcohol or drug abuse patient.[facility] HospitalIn the event this information is protected by the Federal Confidentiality of Alcohol and Drug Abuse Patient Records regulations: The Federal rules restrict any use of the information to criminally investigate or prosecute any alcohol or drug abuse patient.[facility] HospitalIn the event this information is protected by the Federal Confidentiality of Alcohol and Drug Abuse Patient Records regulations: The Federal rules restrict any use of the information to criminally investigate or prosecute any alcohol or drug abuse patient.[facility] HospitalIn the event this information is protected by the Federal Confidentiality of Alcohol and Drug Abuse Patient Records regulations: The Federal rules restrict any use of the information to criminally investigate or prosecute any alcohol or drug abuse patient.[facility] HospitalIn the event this information is protected by the Federal Confidentiality of Alcohol and Drug Abuse Patient Records regulations: The Federal rules restrict any use of the information to criminally investigate or prosecute any alcohol or drug abuse patient.[facility] HospitalIn the event this information is protected by the Federal Confidentiality of Alcohol and Drug Abuse Patient Records regulations: The Federal rules restrict any use of the information to criminally investigate or prosecute any alcohol or drug abuse patient.[facility] HospitalIn the event this information is protected by the Federal Confidentiality of Alcohol and Drug Abuse Patient Records regulations: The Federal rules restrict any use of the information to criminally investigate or prosecute any alcohol or drug abuse patient.[facility] HospitalIn the event this information is protected by the Federal Confidentiality of Alcohol and Drug Abuse Patient Records regulations: The Federal rules restrict any use of the information to criminally investigate or prosecute any alcohol or drug abuse patient.[facility] HospitalIn the event this information is protected by the Federal Confidentiality of Alcohol and Drug Abuse Patient Records regulations: The Federal rules restrict any use of the information to criminally investigate or prosecute any alcohol or drug abuse patient.[facility] HospitalIn the event this information is protected by the Federal Confidentiality of Alcohol and Drug Abuse Patient Records regulations: The Federal rules restrict any use of the information to criminally investigate or prosecute any alcohol or drug abuse patient.[facility] HospitalIn the event this information is protected by the Federal Confidentiality of Alcohol and Drug Abuse Patient Records regulations: The Federal rules restrict any use of the information to criminally investigate or prosecute any alcohol or drug abuse patient.[facility] HospitalIn the event this information is protected by the Federal Confidentiality of Alcohol and Drug Abuse Patient Records regulations: The Federal rules restrict any use of the information to criminally investigate or prosecute any alcohol or drug abuse patient.[facility] HospitalIn the event this information is protected by the Federal Confidentiality of Alcohol and Drug Abuse Patient Records regulations: The Federal rules restrict any use of the information to criminally investigate or prosecute any alcohol or drug abuse patient.[facility] HospitalIn the event this information is protected by the Federal Confidentiality of Alcohol and Drug Abuse Patient Records regulations: The Federal rules restrict any use of the information to criminally investigate or prosecute any alcohol or drug abuse patient.[facility] HospitalIn the event this information is protected by the Federal Confidentiality of Alcohol and Drug Abuse Patient Records regulations: The Federal rules restrict any use of the information to criminally investigate or prosecute any alcohol or drug abuse patient.[facility] HospitalIn the event this information is protected by the Federal Confidentiality of Alcohol and Drug Abuse Patient Records regulations: The Federal rules restrict any use of the information to criminally investigate or prosecute any alcohol or drug abuse patient.[facility] HospitalIn the event this information is protected by the Federal Confidentiality of Alcohol and Drug Abuse Patient Records regulations: The Federal rules restrict any use of the information to criminally investigate or prosecute any alcohol or drug abuse patient.[facility] HospitalIn the event this information is protected by the Federal Confidentiality of Alcohol and Drug Abuse Patient Records regulations: The Federal rules restrict any use of the information to criminally investigate or prosecute any alcohol or drug abuse patient.[facility] HospitalIn the event this information is protected by the Federal Confidentiality of Alcohol and Drug Abuse Patient Records regulations: The Federal rules restrict any use of the information to criminally investigate or prosecute any alcohol or drug abuse patient.[facility] HospitalIn the event this information is protected by the Federal Confidentiality of Alcohol and Drug Abuse Patient Records regulations: The Federal rules restrict any use of the information to criminally investigate or prosecute any alcohol or drug abuse patient.[facility] HospitalIn the event this information is protected by the Federal Confidentiality of Alcohol and Drug Abuse Patient Records regulations: The Federal rules restrict any use of the information to criminally investigate or prosecute any alcohol or drug abuse patient.[facility] HospitalIn the event this information is protected by the Federal Confidentiality of Alcohol and Drug Abuse Patient Records regulations: The Federal rules restrict any use of the information to criminally investigate or prosecute any alcohol or drug abuse patient.[facility] HospitalIn the event this information is protected by the Federal Confidentiality of Alcohol and Drug Abuse Patient Records regulations: The Federal rules restrict any use of the information to criminally investigate or prosecute any alcohol or drug abuse patient.[facility] HospitalIn the event this information is protected by the Federal Confidentiality of Alcohol and Drug Abuse Patient Records regulations: The Federal rules restrict any use of the information to criminally investigate or prosecute any alcohol or drug abuse patient.[facility] HospitalIn the event this information is protected by the Federal Confidentiality of Alcohol and Drug Abuse Patient Records regulations: The Federal rules restrict any use of the information to criminally investigate or prosecute any alcohol or drug abuse patient.[facility] Reason for Visit (unrecogniz ed section [...] Care Teams (unrecognized sec tion and content) Hide Inspector And Sorter Relationship Specialty Start Date End Date Devon Moreira, DO [address] [place] [address] PCP - General 05/27/00 Hide Inspector And Sorter Relationship Specialty Start Date End Date Devon Moreira, DO [address] [facility] [address] PCP - General 05/27/00 Hide Inspector And Sorter Relationship Specialty Start Date End Date Devon Moreira, DO [address] [facility] [address] PCP - General 05/27/00 Hide Inspector And Sorter Relationship Specialty Start Date End Date Devon Moreira Raquel, DO [address] [facility] [address] PCP - General 05/27/00 Hide Inspector And Sorter Relationship Specialty Start Date End Date Devon Moreira, DO [address] [place] [address] PCP - General 05/27/00 Hide Inspector And Sorter Relationship Specialty Start Date End Date Devon Moreira, DO [address] [place] [address] PCP - General 05/27/00 Hide Inspector And Sorter Relationship Specialty Start Date End Date Devon Moreira, DO [address] [place] [address] PCP - General 05/27/00 Hide Inspector And Sorter Relationship Specialty Start Date End Date Devon Moreira, DO [address] [place] [address] PCP - General 05/27/00 Hide Inspector And Sorter Relationship Specialty Start Date End Date Devon Moreira, DO [address] [place] [address] PCP - General 05/27/00 Hide Inspector And Sorter Relationship Specialty Start Date End Date Devon Moreira, DO [address] [place] [address] PCP - General 05/27/00 Hide Inspector And Sorter Relationship Specialty Start Date End Date Devon Moreira, DO [address] [place] [address] PCP - General 05/27/00 Hide Inspector And Sorter Relationship Specialty Start Date End Date Devon Moreira, DO [address] [place] [address] PCP - General 05/27/00 Hide Inspector And Sorter Relationship Specialty Start Date End Date Devon Moreira, DO [address] [place] [address] PCP - General 05/27/00 Hide Inspector And Sorter Relationship Specialty Start Date End Date Devon Moreira, DO [address] [facility] [place] [address] PCP - General 05/27/00 Hide Inspector And Sorter Relationship Specialty Start Date End Date Devon Moreira, DO [address] [facility] [place] [address] PCP - General 05/27/00 Hide Inspector And Sorter Relationship Specialty Start Date End Date Devon Moreira, DO [address] [facility] [place] [address] PCP - General 05/27/00 Hide Inspector And Sorter Relationship Specialty Start Date End Date Devon Moreira, DO [address] [facility] [place] [address] PCP - General 05/27/00 Hide Inspector And Sorter Relationship Specialty Start Date End Date Devon Moreira, DO [address] [facility] [place] [address] PCP - General 05/27/00 Hide Inspector And Sorter Relationship Specialty Start Date End Date Devon Moreira, DO [address] [facility] [address] PCP - General 05/27/00 Team Status: Active Member Role Status Dates Devon Moreira DO Primary Care Provider Active Team Status: Inactive Member Role Status Dates Devon Moreira DO Primary Care Provider Active Sadia Aguilar APRN Attending Provider Active Hide Inspector And Sorter Relationship Specialty Start Date End Date Devon Moreira, DO [address] [facility] [place] [address] PCP - General 05/27/00 Hide Inspector And Sorter Relationship Specialty Start Date End Date Devon Moreira, DO [address] [facility] [place] [address] PCP - General 05/27/00 Hide Inspector And Sorter Relationship Specialty Start Date End Date Ni Cabrera DO [address] [place] [address] PCP - ACO Reach 07/09/22 Devon Moreira MD [address] [place] [id number] PCP - General Internal Medicine 07/14/22 PRN Active and Recently Administ ered Medications (unrecognized section and content) Medication Order 01/10/2022 01/11/2022 01/12/2022 lidocaine (PF) 10 mg/mL (1 %) injection (XYLOCAINE) SUBCUTANEOUS, X (OR/PROCEDURE) PRN, Starting on 01/12/22 at 1032, Until Tu01/13/22 at 0303, Intraprocedure 1032 (Given - Provid er: Vani Hdz APRN.BORDER MEASURER) Goals (unrecognized section and content) Goals may [...] BE BASED ON THE PRIMARY CLINICAL RECORDS. [employer] / ?.??. provides no warranty or guarantee of the accuracy or completeness of information in this document.
[2023-08-11 07:26] LABS: Basophils Percent Auto 0.7 % (0.2-2.0); Eosinophils Absolute Auto 0.3 10^3/uL (0.0-0.7); Eosinophils Percent Auto 4.9 % (0.9-7.0); Hematocrit 25.6 % (42.0-54.0); Hemoglobin 7.8 g/dL (14.0-18.0); Immature Granulocytes Abs Auto 0.01 10^3/uL (0.00-0.03); Immature Granulocytes Pct Auto 0.2 % (0.0-0.5); Lymphocytes Absolute Auto 2.2 10^3/uL (1.2-3.8); Lymphocytes Percent Auto 36.9 % (20.5-60.0); Mean Corpuscular HGB Conc 30.5 g/dL (29.9-35.2); Mean Corpuscular Hemoglobin 23.8 pg (25.9-34.0); Mean Platelet Volume 10.6 fL (9.5-13.5); Monocytes Absolute Auto 0.6 10^3/uL (0.3-0.8); Monocytes Percent Auto 10.5 % (1.7-12.0); Neutrophils Absolute Auto 2.8 10^3/uL (1.4-6.5); Neutrophils Percent Auto 46.8 % (43.0-75.0); Platelet Count 228 10^3/uL (150-450); Red Blood Count 3.28 10^6/uL (4.70-6.10); Red Cell Distribution Width 17.1 % (11.0-15.0); White Blood Count 5.9 10^3/uL (4.0-11.0)
[2023-08-11 07:47] LABS: INR 2.34; Prothrombin Time 22.8 sec (9.0-11.6)
[2023-08-11 08:38] LABS: Alanine Aminotransferase 14 U/L (16-63); Albumin Globulin Ratio 0.8; Albumin Level 2.6 g/dL (3.4-5.0); Alkaline Phosphatase 79 U/L (46-116); Anion Gap 10.9; Aspartate Amino Transferase 15 U/L (15-37); BUN Creatinine Ratio 28.9; Bilirubin Total 0.7 mg/dL (0.2-1.0); Calcium 8.1 mg/dL (8.5-10.1); Carbon Dioxide 27.9 mmol/L (21.0-32.0); Chloride 103 mmol/L (98-107); Estimated GFR (African America 55 (>=60); Estimated GFR (Non-African Ame 46 (>=60); Globulin 3.1 g/dL; Glucose 218 mg/dL (74-106); Potassium 3.8 mmol/L (3.5-5.1); Sodium 138 mmol/L (136-145); Total Protein 5.7 g/dL (6.4-8.2)
[2023-08-13 17:08] LABS: Tacrolimus (FK506), Blood 4.9 ng/mL (2.0-20.0)
== END 2023-08-11 01:20 | disposition home or self-care (01) ==
LOC: LAB 01:19
PROVIDERS: PCP Internal Medicine; Visit Provider Internal Medicine
DX: N18.9 Chronic kidney disease, unspecified (principal)
CPT/HCPCS: 36415; 80053; 80197; 85025; 85610

== ENCOUNTER 2023-08-16 00:50 | Outpatient (RCR) | payer MEDICARE, OTHER, SELFPAY | END 2023-09-15 09:44 | disposition home or self-care (01) | LOC: MM 00:50 | PROVIDERS: PCP Internal Medicine; Visit Provider Internal Medicine | DX: Z51.81 Encounter for therapeutic drug level monitoring (principal); Z79.01 Long term (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 of anticoagulants ==

== ENCOUNTER 2023-08-18 00:42 | Outpatient (REF) | payer MEDICARE, OTHER, SELFPAY ==
--- OUTSIDE RECORDS SUMMARY | 2023-08-18 00:48 | XMS_ITS | CCD ---
Author Organization [facility] Inform ion Partnership [facility] Care Team Providers Care Manager Ccu Name Role Phone PROVIDER, UNKNOWN Attending Unavailable [...] Primary Care Unavailable PetNi moreno DO Unavailable [phone] Devon Moreira MD Primary Care Provider CAITY IBRAHIM Attending Unavailable MILAGRO QUEEN Referring Unavailable SARTHAK PARNELL Attending Unavailable NI CABRERA Attending Unavailable DEVON MOREIRA Referring Unavailable NI CABRERA Attending Unavailable DEVON MOREIRA Referring Unavailable Allergies Allergy Classification Reported Allergen(s) Allergy Type Date of Onset Reaction(s) Facility (20 sources) Pyridostigmine; Translations: [PYRIDOSTIGMINE BROMIDE] Drug Allergy 2 GI Upset [facility] Work Phone: (1 source) Pyridostigmine [...] Indications: Type 1 diabetes mellitus with nephropathy ([facility]) 3 units breakfast, 5 units lunch, 8 [...] 10 units and notify provider [facility] [place] [place] [phone] MG (6 sources) take 155-852 tablets by mouth twice daily [facility] [place] [place] 155-852-130 MG 1 tablet Orally twice daily Active take 155-852 tablets by mouth four times daily take 155-852 tablets by mouth four times daily [facility] [place] [place] 155-852-130 MG 1 tablet Orally Four times [...] by mouth daily with lunch. Magic Cup [place] with lunch 7110 mL 0 12/11/2021 Active Comment on above: Take 237 mL by mouth daily with lunch. Magic Cup [place] with lunch polyethylene glycol 3350 87347 mg powder for oral solution (20 sources) [...] Coronary arteriosclerosis; Translations: [Atherosclerotic heart disease of [place] coronary artery without angina pectoris] Onset: 7 [...] use of immunosuppressive drug; Translations: [Other intermediate manager (current) drug therapy] Episodic Other aftercare (13 sources) Long-term current use of insulin; Translations: [shelter (current) use of insulin] Episodic Other aftercare (10 sources) shelter (current) use of insulin; Translations: [CARE HOME CURRENT USE OF INSULIN] Onset: 2 Episodic Other aftercare (5 sources) 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 (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 of anticoagulants; Translations: [CARE HOME CURRNT USE ANTICOAGULANTS] Onset: 3 Episodic [...] 07-30-2006 Episodic Other aftercare (2 sources) Other chcf (current) drug therapy; Translations: [OTH CARE HOME CURRENT DRUG THERAPY] Onset: 02-05-2022 Episodic Other aftercare (4 sources) Encounter for orthopedic aftercare following surgical amputation; Translations: [ENC ORTHOPED AFTERCARE FLW SURG AMP] Onset: 02-05-2022 Episodic Other aftercare (4 sources) 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 (current) use of antibiotics; Translations: [RUBBER WORKER CURRENT USE ANTIBIOTICS] Onset: 12-20-2021 Episodic Other aftercare (1 source) 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 (current) use of aspirin; Translations: [CARE HOME CURRENT USE OF ASPIRIN] Onset: 01-19-2022 Episodic [...] Range Facility Office Visiton 05-19-2023 Follow-up visit [id number] Alex Almonte 1945 M Date Provider Department Center 05/19/2023 CAITY PALACIOS CARD [facility] Family History Problem Relation Age of Onset Cancer Mother Aneurysm Father Cancer Father Parkinsonism Father Family Status - Relation Status Age at Mother Father Level of Service:18275 [place] OFFICE/OUTPATIENT ESTABLISHED LOW MDM 20 MIN Reason for Visit and Comments: Follow-up [415993] - 6 month follow up Normal [facility] HbA1c (Bld) [Mass fraction]o n 03-18-2023 Interpretation and review of laboratory results Normal [facility] POCT glycosylated hemoglobin (Hb A1C) docked deviceon 03-18-2023 HbA1c (Bld) [Mass fraction] 7.8 % [facility] Sonya 12-25-2022 CNPN Telephone (TXCTGL) ALEX ALMONTE ([id number]) 1945 M Date Time Provider Department 12/25/22 KIDNEY TXP COORDINATORS TXCTGL During your visit today, we recorded the following information about you: Duane Ryan 12/25/2022 10:41 AM Signed Labs 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 DIABETES UNCOMPL ADULT-UNCONTRLLED [[id number]] 02/24/2002 KIDNEY TRANSPLANT STATUS [Z94.0] 09/07/2003 PROPHYLACTIC IMMUNOTHERAPY [Z29.89] 07/30/2006 CARE HOME STEROIDS [KZS1406] 07/30/2006 VITAMIN D DEFICIENCY NOS [E55.9] 09/07/2008 MIXED HYPERLIPIDEMIA [E78.2] 09/07/2008 SUMMARY 01/04/2015 ILIANA (acute kidney injury) (HCC) [N17.9] 01/04/2015 Diabetes mellitus (HCC) [E11.9] 01/04/2015 Cellulitis [L03.90] 01/04/2015 Diarrhea [R19.7] 01/04/2015 VTE (venous thromboembolism) [I82.90] 09/24/2021 CAD (coronary artery disease) [I25.10] 2016 Paroxysmal atrial fibrillation (HCC) [I48.0] HTN (hypertension) [I10] SA node dysfunction ([facility]) [I49.5] Altered tissue perfusion [R09.89] 09/30/2021 PAD (peripheral artery disease) (HCC) [I73.9] 09/26/2021 Osteomyelitis (HCC) [M86.9] 11/29/2021 Class 1 obesity due to excess calories with ser*11/29/2021 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 Magic Cup [place] with lunch aspirin, enteric coated (ASPIRIN, ENTERIC [...] in am? thanks! RF Pts RN at [facility] reports pts sister picks up [...] Apply 0. (more content not included)... Normal [facility] Office Visiton 09-09-2022 Follow-up visit [id number] Alex Almonte Kate 1945 M Date Provider Department Center 09/09/2022 1596-SARTHAK PARNELL CARD [facility] Family History Problem Relation Age of Onset Cancer Mother Aneurysm Father Cancer Father Parkinsonism Father Family Status - Relation Status Age at Mother Father Level of Service:62965 [place] OFFICE/OUTPATIENT ESTABLISHED MOD MDM 30-39 MIN Normal [facility] Glucose Poct Glucometerson 0 07-20-2022 Commemt1 Glu2: Cleaned Meter Normal [facility] Comment on above: Result Comment: PERF ORMED BY: [facility] [address] [place] [address] PATHOLOGIST SHOE STAINER JOSE F ELLIOTT M.D. Performed By: #### G MADY #### Point of Care testing , Glucose [Mass/Vol] 176 mg/dL Normal [facility] Comment on above: Result Comment: [facility] Glucose Reference Range is dependent on time and content of last meal. Glucose of more than 200 mg/dL in a nonstressed, ambulatory subject supports the diagnosis of Diabetes Mellitus. Performed By: #### G LULS #### Point of Care testing , FK506 (TACROLIMUS) WHOLE BLO ODon 07-12-2022 Tacrolimus (FK506), Blood 10.9 ng/mL Normal 2.0-20.0 [facility] Comment on above: Result Comment: Trou gh (immediately following transplant) 15.0 . Trough (steady state, 2 weeks or more after transplant): 3.0 - 8.0 . Performed by LC-MS/MS technology. Performed By: #### F K506T ####[facility] Oq[address]xf[address] [place], [place] [address]Dr. Farhat Leal CBC AUTO DIFFon 07-10-2022 BASO # 0.0 103/ul Normal 0.0-0.1 [facility] Comment on above: Performed By: #### C BC ####[facility] Jgnudgbghf[address] [place], [place] [address]Dr. Farhat Leal Basophils/100 WBC (Bld) 0.5 % Normal 0.2-2.0 [facility] Comment on above: Performed By: #### C BC ####[facility] Ijjrryeqlm[address] [place], [place] [address]Dr. Farhat Leal EO # 0.3 103/ul Normal 0.0-0.7 [facility] Comment on above: Performed By: #### C BC ####[facility] Xhsacbyrpm[address] [place], [place] [address]Dr. Farhat Leal Eosinophils/100 WBC (Bld) 4.9 % Normal 0.9-7.0 [facility] Comment on above: Performed By: #### C BC ####[facility] Jzmsbpxorb3[address] [place], [place] [address]Dr. Farhat Leal Erythrocyte distribution width (RBC) [Ratio] 13.8 % Normal 11.0-15.0 [facility] Comment on above: Performed By: #### C BC ####[facility] [address] [place] [address]Dr. Farhat Leal Hematocrit (Bld) [Volume fraction] 36.6 % Critically low 42.0-54.0 [facility] Comment on above: Performed By: #### C BC ####[facility] [address] [place] [address]DrSkylar Leal Hemoglobin (Bld) [Mass/Vol] 12.2 g/dL Critically low 14.0-18.0 [facility] Comment on above: Performed By: #### C BC ####[facility] Qy[address]qvcsfmc[address] [place], [place] [address]DrSkylar Leal IG # 0.01 10e3/ul Normal 0.00-0.03 [facility] Comment on above: Performed By: #### C BC ####[facility] Hsbuuoqbxt[address] [place], [place] [address]Dr. Farhat Leal IG % 0.2 % Normal 0.0-0.5 [facility] Comment on above: Performed By: #### C BC ####[facility] Rzrutsiesk[address] [place], [place] [address]DrSkylar Leal LYMPH # 2.2 103/ul Normal 1.2-3.8 [facility] Comment on above: Performed By: #### C BC ####[facility] Gqwiltixso0[address] [place], [place] [address]DrSkylar Leal Lymphocytes/100 WBC (Bld) 33.9 % Normal 20.5-60.0 [facility] Comment on above: Performed By: #### C BC ####[facility] F[address]zrjxzmrf[address] [place], [place] [address]DrSkylar Leal MANUAL DIFF REQ NO Normal [facility] Comment on above: Performed By: #### C BC ####[facility] [address] [place] [address]DrSkylar Leal MCH (RBC) [Entitic mass] 31.0 pg Normal 25.9-34.0 [facility] Comment on above: Performed By: #### C BC ####[facility] [address] [place] [address]Dr. Farhat Leal MCHC (RBC) [Mass/Vol] 33.3 g/dL Normal 29.9-35.2 [facility] Comment on above: Performed By: #### C BC ####[facility] [address] [place] [address]Dr. Farhat Leal MCV (RBC) [Entitic vol] 93.1 fL Normal 80.0-94.0 [facility] Comment on above: Performed By: #### C BC ####[facility] Eodmjugdty06[address] [place], [place] [address]DrSkylar Leal MONO # 0.7 103/ul Normal 0.3-0.8 [facility] Comment on above: Performed By: #### C BC ####[facility] Jpwvhnmpsa11[address] [place], [place] [address]Dr. Farhat Leal Monocytes/100 WBC (Bld) 10.8 % Normal 1.7-12.0 [facility] Comment on above: Performed By: #### C BC ####[facility] Wqisayvirq04[address] [place], [place] [address]Dr. Farhat Leal NEUT # 3.2 103/ul Normal 1.4-6.5 [facility] Comment on above: Performed By: #### C BC ####[facility] Adubruqlfp[address] [place], [place] [address]Dr. Farhat Leal Neutrophils/100 WBC (Bld) 49.7 % Normal 43.0-75.0 [facility] Comment on above: Performed By: #### C BC ####[facility] R[address]kiqmz[address] [place], [place] [address]DrSkylar Leal Platelet mean volume (Bld) [Entitic vol] 10.9 fL Normal 9.5-13.5 [facility] Comment on above: Performed By: #### C BC ####[facility] Bjuqyhrhup[address] [place], [place] [address]Dr. Farhat Leal PLT 195 103/ul Normal 150-450 [facility] Comment on above: Performed By: #### C BC ####[facility] [address] [place] [address]Dr. Farhat Leal RBC 3.93 106/ul Critically low 4.70-6.10 [facility] Comment on above: Performed By: #### C BC ####[facility] [address] [place] [address]Dr. Farhat Leal WBC 6.4 103/ul Normal 4.0-11.0 [facility] Comment on above: Performed By: #### C BC ####[facility] [address] [place] [address]Dr. Farhat Leal MAGNESIUMon 07-10-2022 Magnesium [Mass/Vol] 1.9 mg/dL Normal 1.8-2.4 [facility] Comment on above: Performed By: #### HENRI Winters ####[facility] Zajbedcbos[address] [place], [place] [address]Dr. Farhat Leal PHOSPHORUSon 07-10-2022 Phosphate [Mass/Vol] 4.7 mg/dL Normal 2.6-4.7 [facility] Comment on above: Performed By: #### HENRI Winters ####[facility] K[address]irjzvws[address] [place], [place] [address]Dr. Farhat Leal PROF 14(COMP METB)on 023 Albumin [Mass/Vol] 2.7 g/dL Critically low 3.4-5.0 [facility] Comment on above: Performed By: #### C MP ####[facility] [address] [place] [address]Dr. Farhat Leal Albumin/Globulin [Mass ratio] 0.8 {ratio} Normal [facility] Comment on above: Performed By: #### C MP ####[facility] [address] [place] [address]Dr. Farhat Leal ALP [Catalytic activity/Vol] 59 U/L Normal 46-116 [facility] Comment on above: Performed By: #### C MP ####[facility] [address]osu[address] [place] [address]Dr. Farhat Leal ALT [Catalytic activity/Vol] 16 U/L Normal 16-63 [facility] Comment on above: Performed By: #### C MP ####[facility] [address] [place] [address]Dr. Farhat Leal Anion gap [Moles/Vol] 12.3 mmol/L Normal [facility] Comment on above: Performed By: #### C MP ####[facility] Dhzozzgtmv[address] [place], [place] [address]Dr. Farhat Leal AST [Catalytic activity/Vol] 17 U/L Normal 15-37 [facility] Comment on above: Performed By: #### C MP ####[facility] Ehwbgdgwwt[address] [place], [place] [address]Dr. Farhat Leal Bilirubin [Mass/Vol] 0.5 mg/dL Normal 0.2-1.0 [facility] Comment on above: Performed By: #### C MP ####[facility] Vljlwwvvbg4[address] [place], [place] [address]Dr. Farhat Leal Calcium [Mass/Vol] 8.5 mg/dL Normal 8.5-10.1 [facility] Comment on above: Performed By: #### C MP ####[facility] Euwdpknuav7820[address] [place], [place] [address]Dr. Farhat Leal Chloride [Moles/Vol] 104 mmol/L Normal 98-107 [facility] Comment on above: Performed By: #### C MP ####[facility] Rzgboysjqn4118[address] [place], [place] [address]Dr. Farhat Leal CO2 [Moles/Vol] 27.6 mmol/L Normal 21.0-32.0 [facility] Comment on above: Performed By: #### C MP ####[facility] Xvsnpyaunv[address] [place], [place] [address]Dr. Farhat Leal Creatinine [Mass/Vol] 1.79 mg/dL Critically high 0.70-1.30 [facility] Comment on above: Performed By: #### C MP ####[facility] [address] [place] [address]Dr. Farhat Leal EGFR-AF [place]ITT[place] 45 mL/min/1.73m2 Critically low >=60 [facility] Comment on above: Performed By: #### C MP ####[facility] [address] [place] [address]Dr. Farhat Leal EGFR-NON AF [place] 37 mL/min/1.73m2 Critically low >=60 [facility] Comment on above: Performed By: #### C MP ####[facility] [address]rof[address] [place] [address]Dr. Farhat Leal Globulin (S) [Mass/Vol] 3.2 g/dL Normal [facility] Comment on above: Performed By: #### C MP ####[facility] Gxxduroxmh2839[address] [place], [place] [address]Dr. Farhat Leal Glucose [Mass/Vol] 203 mg/dL Critically high 74-106 [facility] Comment on above: Performed By: #### C MP ####[facility] Uqglzolofv[address] [place], [place] [address]Dr. Farhat Leal Potassium [Moles/Vol] 3.9 mmol/L Normal 3.5-5.1 [facility] Comment on above: Performed By: #### C MP ####[facility] Metztzndee6817[address] [place], [place] [address]Dr. Farhat Leal Protein [Mass/Vol] 5.9 g/dL Critically low 6.4-8.2 [facility] Comment on above: Performed By: #### C MP ####[facility] [address] [place] [address]Dr. Farhat Leal Sodium [Moles/Vol] 140 mmol/L Normal 136-145 [facility] Comment on above: Performed By: #### C MP ####[facility] Jvvqqkijpl88[address] [place], [place] [address]Dr. Farhat Leal Urea nitrogen [Mass/Vol] 61.0 mg/dL Critically high 7.0-18.0 [facility] Comment on above: Performed By: #### C MP ####[facility] Ivdvkesoiw[address] [place], [place] [address]Dr. Farhat Leal Urea nitrogen/Creatinine [Mass ratio] 34.1 mg/mg Normal [facility] Comment on above: Performed By: #### C MP ####[facility] V[address]wjyazfy[address] [place], [place] [address]DrSkylar Leal PROTIMEon 07-10-2022 INR Coag (PPP) [Relative time] 2.95 {INR} Normal [facility] Comment on above: Performed By: #### P T ####[facility] Pjjlqthmfo[address] [place], [place] [address]DrSkylar Leal INR GUIDELINES SEE BELOW Normal [facility] Comment on above: Result Comment: MALINA RED INR: 2.0 - 3.0 CONDITIONS NOT LISTED BELOW 2.5 - 3.5 FOR PROSTHETIC HEART VALVE REPLACEMENT 2.5 - 3.5 RECURRENT THROMBOSIS Performed By: #### P T ####[facility] Fcwbhvzpam[address] [place], [place] [address]Dr. Farhat Leal PT Coag (PPP) [Time] 29.4 s Critically high 9.0-11.6 [facility] Comment on above: Performed By: #### P T ####[facility] Vlidwagrxd[address] [place], [place] [address]Dr. Farhat Leal FK506 (TACROLIMUS) WHOLE BLO ODon 07-07-2022 Tacrolimus (FK506), Blood 8.3 ng/mL Normal 2.0-20.0 [facility] Comment on above: Result Comment: Trou gh (immediately following transplant) 15.0 . Trough (steady state, 2 weeks or more after transplant): 3.0 - 8.0 . Performed by LC-MS/MS technology. Performed By: #### F K506T ####[facility] Qcvnpoelxv[address] [place], [place] [address]DrSkylar Leal CBC AUTO DIFFon 07-03-2022 BASO # 0.0 103/ul Normal 0.0-0.1 [facility] Comment on above: Performed By: #### C BC ####[facility] Nrwdquxmtj[address] [place], [place] [address]DrSkylar Leal Basophils/100 WBC (Bld) 0.6 % Normal 0.2-2.0 [facility] Comment on above: Performed By: #### C BC ####[facility] [address] [place] [address]DrSkylar Leal EO # 0.3 103/ul Normal 0.0-0.7 [facility] Comment on above: Performed By: #### C BC ####[facility] Whstmcozdb[address] [place], [place] [address]DrSkylar Leal Eosinophils/100 WBC (Bld) 4.1 % Normal 0.9-7.0 [facility] Comment on above: Performed By: #### C BC ####[facility] Xwcdxvjovv[address] [place], [place] [address]Dr. Farhat Leal Erythrocyte distribution width (RBC) [Ratio] 14.0 % Normal 11.0-15.0 [facility] Comment on above: Performed By: #### C BC ####[facility] Krbswowump1626[address] [place], [place] [address]Dr. Farhat Leal Hematocrit (Bld) [Volume fraction] 35.9 % Critically low 42.0-54.0 [facility] Comment on above: Performed By: #### C BC ####[facility] Jrvloiunzo2787[address] [place], [place] [address]Dr. Farhat Leal Hemoglobin (Bld) [Mass/Vol] 12.0 g/dL Critically low 14.0-18.0 [facility] Comment on above: Performed By: #### C BC ####[facility] H[address]qhcklask[address] [place], [place] [address]DrSkylar Leal IG # 0.04 10e3/ul Critically high 0.00-0.03 [facility] Comment on above: Performed By: #### C BC ####[facility] Jmagldndtf[address]36[address] [place], [place] [address]DrSkylar Leal IG % 0.6 % Critically high 0.0-0.5 [facility] Comment on above: Performed By: #### C BC ####[facility] Jhnfuhylut[address] [place], [place] [address]DrSkylar Lael LYMPH # 1.5 103/ul Normal 1.2-3.8 [facility] Comment on above: Performed By: #### C BC ####[facility] [address]rxmas[address] [place] [address]DrSkylar Leal Lymphocytes/100 WBC (Bld) 21.5 % Normal 20.5-60.0 [facility] Comment on above: Performed By: #### C BC ####[facility] [address]hes[address] [place] [address]DrSkylar Leal MANUAL DIFF REQ NO Normal [facility] Comment on above: Performed By: #### C BC ####[facility] Sem[address]rcxiro[address] [place] [address]DrSkylar Leal MCH (RBC) [Entitic mass] 30.8 pg Normal 25.9-34.0 [facility] Comment on above: Performed By: #### C BC ####[facility] G[address]brxblmm[address] [place], [place] [address]DrSkylar Leal MCHC (RBC) [Mass/Vol] 33.4 g/dL Normal 29.9-35.2 [facility] Comment on above: Performed By: #### C BC ####[facility] [address]fvq[address] [place], [place] [address]DrSkylar Leal MCV (RBC) [Entitic vol] 92.1 fL Normal 80.0-94.0 [facility] Comment on above: Performed By: #### C BC ####[facility] K[address]qbazrgf[address] [place], [place] [address]DrSkylar Leal MONO # 0.6 103/ul Normal 0.3-0.8 [facility] Comment on above: Performed By: #### C BC ####[facility] Yzmckfilar20[address] [place], [place] [address]DrSkylar Leal Monocytes/100 WBC (Bld) 8.7 % Normal 1.7-12.0 [facility] Comment on above: Performed By: #### C BC ####[facility] Oelaxyqdys[address] [place], [place] [address]DrSkylar Leal NEUT # 4.4 103/ul Normal 1.4-6.5 [facility] Comment on above: Performed By: #### C BC ####[facility] [address]sch[address] [place] [address]DrSkylar Leal Neutrophils/100 WBC (Bld) 64.5 % Normal 43.0-75.0 [facility] Comment on above: Performed By: #### C BC ####[facility] [address]qve[address] [place] [address]DrSkylar Leal Platelet mean volume (Bld) [Entitic vol] 10.1 fL Normal 9.5-13.5 [facility] Comment on above: Performed By: #### C BC ####[facility] Klocngreey[address] [place], [place] [address]DrSkylar Leal PLT 177 103/ul Normal 150-450 [facility] Comment on above: Performed By: #### C BC ####[facility] Htbptxgpzg[address] [place], [place] [address]DrSkylar Leal RBC 3.90 106/ul Critically low 4.70-6.10 [facility] Comment on above: Performed By: #### C BC ####[facility] [address] [place], [place] [address]DrSkylar Leal WBC 6.8 103/ul Normal 4.0-11.0 [facility] Comment on above: Performed By: #### C BC ####[facility] [address]xjwvkg[address] [place], [place] [address]Dr. Farhat Leal PROF 14(COMP METB)on 023 Albumin [Mass/Vol] 2.8 g/dL Critically low 3.4-5.0 [facility] Comment on above: Performed By: #### C MP ####[facility] [address] [place], [place] [id number] Leal Albumin/Globulin [Mass ratio] 0.8 {ratio} Normal [facility] Comment on above: Performed By: #### C MP ####[facility] [address]ve[address]cj[address] [place], [place] [address]DrSkylar Leal ALP [Catalytic activity/Vol] 68 U/L Normal 46-116 [facility] Comment on above: Performed By: #### C MP ####[facility] [address] [place] [address]Dr. Farhat Leal ALT [Catalytic activity/Vol] 20 U/L Normal 16-63 [facility] Comment on above: Performed By: #### C MP ####[facility] [address]kmvslbb[address] [place], [place] [address]Dr. Farhat Leal Anion gap [Moles/Vol] 11.1 mmol/L Normal [facility] Comment on above: Performed By: #### C MP ####[facility] Z[address]ijuethpa[address] [place], [place] [address]Dr. Farhat Leal AST [Catalytic activity/Vol] 22 U/L Normal 15-37 [facility] Comment on above: Performed By: #### C MP ####[facility] Apztwgqaxt146[address] [place], [place] [address]Dr. Farhat Elvis Bilirubin [Mass/Vol] 0.4 mg/dL Normal 0.2-1.0 [facility] Comment on above: Performed By: #### C MP ####[facility] Bjphqexktd060[address] [place], [place] [address]Dr. Farhat Elvis Calcium [Mass/Vol] 8.5 mg/dL Normal 8.5-10.1 [facility] Comment on above: Performed By: #### C MP ####[facility] Ivykmhknqy587838 [address] [place], [place] [address]Dr. Farhat Leal Chloride [Moles/Vol] 106 mmol/L Normal 98-107 [facility] Comment on above: Performed By: #### C MP ####[facility] Xxyatnkgbe458338 [address] [place], [place] [address]Dr. Farhat Leal CO2 [Moles/Vol] 29.1 mmol/L Normal 21.0-32.0 [facility] Comment on above: Performed By: #### C MP ####[facility] Qvitlvpvpr[address] [place], [place] [id number]. Farhat Elvis Creatinine [Mass/Vol] 1.70 mg/dL Critically high 0.70-1.30 [facility] Comment on above: Performed By: #### C MP ####[facility] Cjwqavzmmt3[address] [place] [address]Dr. Farhat Leal EGFR-AF KITTITIAN 48 mL/min/1.73m2 Critically low >=60 [facility] Comment on above: Performed By: #### C MP ####[facility] Cobcwwklaw[address] [place] [address]Dr. Farhat Leal EGFR-NON AF KITTITIAN 39 mL/min/1.73m2 Critically low >=60 [facility] Comment on above: Performed By: #### C MP ####[facility] Mqxxablxmy672[address] [place], [place] [address]Dr. Farhat Leal Globulin (S) [Mass/Vol] 3.6 g/dL Normal [facility] Comment on above: Performed By: #### C MP ####[facility] Uwzrcjtxpi388238 [address] [place], [place] [address]Dr. Farhat Leal Glucose [Mass/Vol] 312 mg/dL Critically high 74-106 [facility] Comment on above: Performed By: #### C MP ####[facility] Lfyeesavkh244138 [address] [place], [place] [address]Dr. Farhat Leal Potassium [Moles/Vol] 4.2 mmol/L Normal 3.5-5.1 [facility] Comment on above: Performed By: #### C MP ####[facility] Biemxohqjb27[address] [place], [place] [address]Dr. Farhat Leal Protein [Mass/Vol] 6.4 g/dL Normal 6.4-8.2 [facility] Comment on above: Performed By: #### C MP ####[facility] Pufgxkqvge5718[address] [place], [place] [address]Dr. Farhat Leal Sodium [Moles/Vol] 142 mmol/L Normal 136-145 [facility] Comment on above: Performed By: #### C MP ####[facility] Hzwqbahcwq934938 [address] [place], [place] [address]Dr. Farhat Leal Urea nitrogen [Mass/Vol] 49.0 mg/dL Critically high 7.0-18.0 [facility] Comment on above: Performed By: #### C MP ####[facility] Tlvscnddck2102 [place] [address]DrSkylar Leal Urea nitrogen/Creatinine [Mass ratio] 28.8 mg/mg Normal [facility] Comment on above: Performed By: #### C MP ####[facility] Fjbznnzmlp967[address] [place], [place] [address]DrSkylar Leal PROTIMEon 07-03-2022 INR Coag (PPP) [Relative time] 2.23 {INR} Normal [facility] Comment on above: Performed By: #### P T ####[facility] Tnzqrnayih8646[address] [place], [place] [address]DrSkylar Leal INR GUIDELINES SEE BELOW Normal [facility] Comment on above: Result Comment: MALINA RED INR: 2.0 - 3.0 CONDITIONS NOT LISTED BELOW 2.5 - 3.5 FOR PROSTHETIC HEART VALVE REPLACEMENT 2.5 - 3.5 RECURRENT THROMBOSIS Performed By: #### P T ####[facility] Ypolypnvvy313738 [address] [place], [place] [address]Dr. Farhat Leal PT Coag (PPP) [Time] 22.6 s Critically high 9.0-11.6 [facility] Comment on above: Performed By: #### P T ####[facility] Ihyeyynymy313438 [address] [place], [place] [address]Dr. Farhat Leal FK506 (TACROLIMUS) WHOLE BLO ODon 06-29-2022 Tacrolimus (FK506), Blood 12.2 ng/mL Normal 2.0-20.0 [facility] Comment on above: Result Comment: Trou gh (immediately following transplant) 15.0 . Trough (steady state, 2 weeks or more after transplant): 3.0 - 8.0 . Performed by LC-MS/MS technology. Performed By: #### F K506T ####[facility] Kooxbhhesu849[address] [place], [place] [address]DrSkylar Leal CBC AUTO DIFFon 06-26-2022 BASO # 0.0 103/ul Normal 0.0-0.1 [facility] Comment on above: Performed By: #### C BC ####[facility] Annpesjvuo04[address] [place] [phone]. Farhat Leal Basophils/100 WBC (Bld) 0.5 % Normal 0.2-2.0 [facility] Comment on above: Performed By: #### C BC ####[facility] Apwxvtrzuw10[address] [place], [place] [id number]. Farhat Leal EO # 0.3 103/ul Normal 0.0-0.7 [facility] Comment on above: Performed By: #### C BC ####[facility] Rrxukljafi3588[address] [place], [place] [address]Dr. Farhat Leal Eosinophils/100 WBC (Bld) 4.3 % Normal 0.9-7.0 [facility] Comment on above: Performed By: #### C BC ####[facility] Kctfjwvjvb2450[address] [place], [place] [address]Dr. Farhat Leal Erythrocyte distribution width (RBC) [Ratio] 14.1 % Normal 11.0-15.0 [facility] Comment on above: Performed By: #### C BC ####[facility] Uvdapxxqjs6634[address] [place], [place] [address]Dr. Farhat Leal Hematocrit (Bld) [Volume fraction] 35.4 % Critically low 42.0-54.0 [facility] Comment on above: Performed By: #### C BC ####[facility] Cupbeymvnz059[address] [place], [place] [address]Dr. Farhat Leal Hemoglobin (Bld) [Mass/Vol] 11.8 g/dL Critically low 14.0-18.0 [facility] Comment on above: Performed By: #### C BC ####[facility] Btxzcjlzby2404[address] [place], [place] [address]Dr. Farhat Leal IG # 0.02 10e3/ul Normal 0.00-0.03 [facility] Comment on above: Performed By: #### C BC ####[facility] Vrnisdczdc9595[address] [place], [place] [address]Dr. Farhat Leal IG % 0.3 % Normal 0.0-0.5 [facility] Comment on above: Performed By: #### C BC ####[facility] Mypcncvzpw7174 [place] [phone]. Farhat Leal LYMPH # 2.4 103/ul Normal 1.2-3.8 [facility] Comment on above: Performed By: #### C BC ####[facility] Xfcasxqooy4600 [place] [phone]. Farhat Leal Lymphocytes/100 WBC (Bld) 40.4 % Normal 20.5-60.0 [facility] Comment on above: Performed By: #### C BC ####[facility] Uzzrbzofoh[address] [place] [address]Dr. Farhat Leal MANUAL DIFF REQ NO Normal [facility] Comment on above: Performed By: #### C BC ####[facility] Pqregzggly9004 [place] [phone]. Farhat Leal MCH (RBC) [Entitic mass] 31.0 pg Normal 25.9-34.0 [facility] Comment on above: Performed By: #### C BC ####[facility] Wnkpahuwat0492 [place] [phone]. Farhat Leal MCHC (RBC) [Mass/Vol] 33.3 g/dL Normal 29.9-35.2 [facility] Comment on above: Performed By: #### C BC ####[facility] Geakdqbubs6518 [place] [phone]. Farhat Leal MCV (RBC) [Entitic vol] 92.9 fL Normal 80.0-94.0 [facility] Comment on above: Performed By: #### C BC ####[facility] Tlsfyzyrrr0171 [place] [phone]. Farhat Leal MONO # 0.7 103/ul Normal 0.3-0.8 [facility] Comment on above: Performed By: #### C BC ####[facility] Urcngyruju3267 [place] [phone]. Farhat Leal Monocytes/100 WBC (Bld) 11.1 % Normal 1.7-12.0 [facility] Comment on above: Performed By: #### C BC ####[facility] Pomuehzojr2740 [place] [phone]. Farhat Leal NEUT # 2.6 103/ul Normal 1.4-6.5 [facility] Comment on above: Performed By: #### C BC ####[facility] Mwcpaykcrw8608 [place] [phone]. Farhat Leal Neutrophils/100 WBC (Bld) 43.4 % Normal 43.0-75.0 [facility] Comment on above: Performed By: #### C BC ####[facility] Mhdmnzsooa7433 [place] [phone]. Farhat Leal Platelet mean volume (Bld) [Entitic vol] 10.4 fL Normal 9.5-13.5 [facility] Comment on above: Performed By: #### C BC ####[facility] Qoulovktoz6008 [place] [phone]. Farhat Leal PLT 211 103/ul Normal 150-450 [facility] Comment on above: Performed By: #### C BC ####[facility] Zaslgepioj1912 [place] [phone]. Farhat Leal RBC 3.81 106/ul Critically low 4.70-6.10 [facility] Comment on above: Performed By: #### C BC ####[facility] Abfibwedtd0484 [place] [phone]. Farhat Leal WBC 6.0 103/ul Normal 4.0-11.0 [facility] Comment on above: Performed By: #### C BC ####[facility] Jgbmcnxhwi0178 [place] [phone] Leal PROF 14(COMP METB)on 023 Albumin [Mass/Vol] 2.6 g/dL Critically low 3.4-5.0 [facility] Comment on above: Performed By: #### C MP ####[facility] Jyczixoiqj3049 [place] [phone] Leal Albumin/Globulin [Mass ratio] 0.8 {ratio} Normal [facility] Comment on above: Performed By: #### C MP ####[facility] Fxgcxkqxol9716 [place] [address]Dr. Farhat Leal ALP [Catalytic activity/Vol] 64 U/L Normal 46-116 [facility] Comment on above: Performed By: #### C MP ####[facility] Wrjfwzlczc0999 [place] [address]Dr. Farhat Elvis ALT [Catalytic activity/Vol] 18 U/L Normal 16-63 [facility] Comment on above: Performed By: #### C MP ####[facility] Mmcihifnmb5[address] [place], [place] [address]Dr. Farhat Leal Anion gap [Moles/Vol] 10.2 mmol/L Normal Th [facility] Comment on above: Performed By: #### C MP ####[facility] Yvdymfuesd8707[address] [place], [place] [address]Dr. Farhat Elvis AST [Catalytic activity/Vol] 16 U/L Normal 15-37 [facility] Comment on above: Performed By: #### C MP ####[facility] Dmevjhzgjg5265[address] [place], [place] [address]Dr. Madelynlorri Elvis Bilirubin [Mass/Vol] 0.6 mg/dL Normal 0.2-1.0 [facility] Comment on above: Performed By: #### C MP ####[facility] Dlivnoyhkn1046[address] [place], [place] [address]Dr. Farhat Leal Calcium [Mass/Vol] 8.5 mg/dL Normal 8.5-10.1 [facility] Comment on above: Performed By: #### C MP ####[facility] Tvhqkqfvwi4550[address] [place], [place] [address]Dr. Farhat Leal Chloride [Moles/Vol] 106 mmol/L Normal 98-107 [facility] Comment on above: Performed By: #### C MP ####[facility] Pirgwtbqsz7463 [place] [address]Dr. Farhat Leal CO2 [Moles/Vol] 29.8 mmol/L Normal 21.0-32.0 [facility] Comment on above: Performed By: #### C MP ####[facility] Csdvscaxpu6093 [place] [phone]. Farhat Leal Creatinine [Mass/Vol] 1.60 mg/dL Critically high 0.70-1.30 [facility] Comment on above: Performed By: #### C MP ####[facility] Tkolpmjihc2257 [place] [phone]. Farhat Leal EGFR-AF KITTITIAN 51 mL/min/1.73m2 Critically low >=60 [facility] Comment on above: Performed By: #### C MP ####[facility] Uputwyltwv2404 [place] [phone]. Farhat Elvis EGFR-NON AF KITTITIAN 42 mL/min/1.73m2 Critically low >=60 [facility] Comment on above: Performed By: #### C MP ####[facility] Kjxmgzdlot7878 [place] [phone]. Farhat Elvis Globulin (S) [Mass/Vol] 3.4 g/dL Normal [facility] Comment on above: Performed By: #### C MP ####[facility] Yilcczkuzq8886 [place] [phone]. Farhat Leal Glucose [Mass/Vol] 178 mg/dL Critically high 74-106 [facility] Comment on above: Performed By: #### C MP ####[facility] Qrdxjusedu1308 [place] [phone]. Farhat Elvis Potassium [Moles/Vol] 4.0 mmol/L Normal 3.5-5.1 [facility] Comment on above: Performed By: #### C MP ####[facility] Nlusijxieu4526 [place] [phone]. Farhat Leal Protein [Mass/Vol] 6.0 g/dL Critically low 6.4-8.2 [facility] Comment on above: Performed By: #### C MP ####[facility] Agtfbbwgcm4549 [place] [phone]. Madelynlorri Leal Sodium [Moles/Vol] 142 mmol/L Normal 136-145 [facility] Comment on above: Performed By: #### C MP ####[facility] Sosxzpxlvf3751 [place] [address]Dr. Farhat Leal Urea nitrogen [Mass/Vol] 49.0 mg/dL Critically high 7.0-18.0 [facility] Comment on above: Performed By: #### C MP ####[facility] Kzorslswsu5272 [place] [address]Dr. Farhat Leal Urea nitrogen/Creatinine [Mass ratio] 30.6 mg/mg Normal [facility] Comment on above: Performed By: #### C MP ####[facility] Zezqxblnoq0436[address] [place], [place] [address]Dr. Farhat Leal PROTIMEon 06-26-2022 INR Coag (PPP) [Relative time] 1.77 {INR} Normal [facility] Comment on above: Performed By: #### P T ####[facility] Yehmlbtrkx0728[address] [place], [place] [address]Dr. Farhat Leal INR GUIDELINES SEE BELOW Normal [facility] Comment on above: Result Comment: MALINA RED INR: 2.0 - 3.0 CONDITIONS NOT LISTED BELOW 2.5 - 3.5 FOR PROSTHETIC HEART VALVE REPLACEMENT 2.5 - 3.5 RECURRENT THROMBOSIS Performed By: #### P T ####[facility] Sqgmjpfgdh2260[address] [place], [place] [address]Dr. Farhat Leal PT Coag (PPP) [Time] 18.2 s Critically high 9.0-11.6 [facility] Comment on above: Performed By: #### P T ####[facility] Woshopexfi7739[address] [place], [place] [address]Dr. Farhat Leal FK506 (TACROLIMUS) WHOLE BLO ODon 06-22-2022 Tacrolimus (FK506), Blood 24.5 ng/mL Invalid Interpretation Code 2.0-20.0 [facility] Comment on above: Result Comment: Trou gh (immediately following transplant) 15.0 . Trough (steady state, 2 weeks or more after transplant): 3.0 - 8.0 . Performed by LC-MS/MS technology.Patient drug level exceeds published reference range. Evaluateclinically for signs of potential toxicity. Performed By: #### F K506T ####[facility] Agzxaotxdu8562 [place] [phone]. Farhat Leal CBC AUTO DIFFon 06-19-2022 BASO # 0.1 103/ul Normal 0.0-0.1 [facility] Comment on above: Performed By: #### C BC ####[facility] Wfigohjwbs9867 [place] [address]Dr. Farhat Leal Basophils/100 WBC (Bld) 0.7 % Normal 0.2-2.0 [facility] Comment on above: Performed By: #### C BC ####[facility] Dowjrtelam1333[address] [place], [place] [address]Dr. Farhat Leal EO # 0.4 103/ul Normal 0.0-0.7 [facility] Comment on above: Performed By: #### C BC ####[facility] Gnpdrdaxww3776[address] [place], [place] [address]Dr. Madelynlorri Leal Eosinophils/100 WBC (Bld) 5.7 % Normal 0.9-7.0 [facility] Comment on above: Performed By: #### C BC ####[facility] Rpnovoafxg215938 [address] [place], [place] [address]Dr. Farhat Leal Erythrocyte distribution width (RBC) [Ratio] 14.5 % Normal 11.0-15.0 [facility] Comment on above: Performed By: #### C BC ####[facility] Oyzcnuxpag5644[address] [place], [place] [address]Dr. Farhat Leal Hematocrit (Bld) [Volume fraction] 34.1 % Critically low 42.0-54.0 [facility] Comment on above: Performed By: #### C BC ####[facility] Vgevzlwzrp974[address] [place], [place] [address]Dr. Farhat Leal Hemoglobin (Bld) [Mass/Vol] 11.3 g/dL Critically low 14.0-18.0 [facility] Comment on above: Performed By: #### C BC ####[facility] Wahdxwhmwp330[address] [place], [place] [address]Dr. Farhat Leal IG # 0.02 10e3/ul Normal 0.00-0.03 [facility] Comment on above: Performed By: #### C BC ####[facility] Pxgdvuvhop7879 [place] [address]Dr. Farhat Leal IG % 0.3 % Normal 0.0-0.5 [facility] Comment on above: Performed By: #### C BC ####[facility] Vkbfiqdxls6202 [place] [phone] Leal LYMPH # 3.1 103/ul Normal 1.2-3.8 [facility] Comment on above: Performed By: #### C BC ####[facility] Dvbejpwrcd8434 [place] [address]Dr. Farhat Leal Lymphocytes/100 WBC (Bld) 40.6 % Normal 20.5-60.0 [facility] Comment on above: Performed By: #### C BC ####[facility] Fxtouwgldq2826[address] [place], [place] [address]DrSkylar Leal MANUAL DIFF REQ NO Normal [facility] Comment on above: Performed By: #### C BC ####[facility] Dwqzmdzkpb2515 [place] [phone]. Madelynlorri Leal MCH (RBC) [Entitic mass] 30.6 pg Normal 25.9-34.0 [facility] Comment on above: Performed By: #### C BC ####[facility] Rsoavqhdio[address] [place], [place] [id number]. Farhat Leal MCHC (RBC) [Mass/Vol] 33.1 g/dL Normal 29.9-35.2 [facility] Comment on above: Performed By: #### C BC ####[facility] [address]qovnqwua[address] [place], [place] [id number] Leal MCV (RBC) [Entitic vol] 92.4 fL Normal 80.0-94.0 [facility] Comment on above: Performed By: #### C BC ####[facility] Nxvmmvjoqe5389 [place] [phone] Leal MONO # 0.8 103/ul Normal 0.3-0.8 [facility] Comment on above: Performed By: #### C BC ####[facility] Ltgxsctpmb3699 [place] [phone]. Farhat Leal Monocytes/100 WBC (Bld) 10.6 % Normal 1.7-12.0 [facility] Comment on above: Performed By: #### C BC ####[facility] Dosuskvmxx1748 [place] [phone]. Farhat Leal NEUT # 3.2 103/ul Normal 1.4-6.5 [facility] Comment on above: Performed By: #### C BC ####[facility] Yqldhrmxyb3483 [place] [phone]. Farhat Leal Neutrophils/100 WBC (Bld) 42.1 % Critically low 43.0-75.0 [facility] Comment on above: Performed By: #### C BC ####[facility] Cxvywqerys7913 [place] [address]Dr. Farhat Leal Platelet mean volume (Bld) [Entitic vol] 10.6 fL Normal 9.5-13.5 [facility] Comment on above: Performed By: #### C BC ####[facility] Csntlwfqdt9233 [place] [address]Dr. Farhat Leal PLT 187 103/ul Normal 150-450 [facility] Comment on above: Performed By: #### C BC ####[facility] Vdhanxoaid1337 [place] [phone]. Farhat Leal RBC 3.69 106/ul Critically low 4.70-6.10 [facility] Comment on above: Performed By: #### C BC ####[facility] Ipvlqiedtx7300 [place] [phone]. Farhat Leal WBC 7.7 103/ul Normal 4.0-11.0 [facility] Comment on above: Performed By: #### C BC ####[facility] Ayfypfjtfy1184 [place] [phone] Leal PROF 14(COMP METB)on 023 Albumin [Mass/Vol] 2.5 g/dL Critically low 3.4-5.0 [facility] Comment on above: Performed By: #### C MP ####[facility] Ideodbcorj6304 [place] [address]Dr. Farhat Leal Albumin/Globulin [Mass ratio] 0.8 {ratio} Normal [facility] Comment on above: Performed By: #### C MP ####[facility] Eyzymsxrsm4905 [place] [address]Dr. Farhat Leal ALP [Catalytic activity/Vol] 60 U/L Normal 46-116 [facility] Comment on above: Performed By: #### C MP ####[facility] Pzkdoumilp065[address] [place], [place] [address]Dr. Farhat Leal ALT [Catalytic activity/Vol] 16 U/L Normal 16-63 [facility] Comment on above: Performed By: #### C MP ####[facility] Vnxbsbautu6977[address] [place], [place] [address]Dr. Farhat Leal Anion gap [Moles/Vol] 9.1 mmol/L Normal [facility] Comment on above: Performed By: #### C MP ####[facility] Fjiuubkbue387[address] [place], [place] [address]Dr. Farhat Leal AST [Catalytic activity/Vol] 31 U/L Normal 15-37 [facility] Comment on above: Performed By: #### C MP ####[facility] Zkhyikanil9026[address] [place], [place] [address]Dr. Farhat Leal Bilirubin [Mass/Vol] 0.3 mg/dL Normal 0.2-1.0 [facility] Comment on above: Performed By: #### C MP ####[facility] Mtctftmhfk1627[address] [place], [place] [address]Dr. Farhat Leal Calcium [Mass/Vol] 8.2 mg/dL Critically low 8.5-10.1 Th [facility] Comment on above: Performed By: #### C MP ####[facility] Kdyyjhgkdr880[address] [place], [place] [address]Dr. Farhat Leal Chloride [Moles/Vol] 106 mmol/L Normal 98-107 [facility] Comment on above: Performed By: #### C MP ####[facility] Mhdqkrlcza3696 [place] [phone]. Farhat Leal CO2 [Moles/Vol] 27.0 mmol/L Normal 21.0-32.0 [facility] Comment on above: Performed By: #### C MP ####[facility] Skvgolyujh6796 [place] [phone]. Farhat Leal Creatinine [Mass/Vol] 1.51 mg/dL Critically high 0.70-1.30 [facility] Comment on above: Performed By: #### C MP ####[facility] Oyudjphytz9649 [place] [phone]. Farhat Leal EGFR-AF KITTITIAN 55 mL/min/1.73m2 Critically low >=60 [facility] Comment on above: Performed By: #### C MP ####[facility] Emcxdyhazh1185 [place] [phone]. Farhat Elvis EGFR-NON AF KITTITIAN 45 mL/min/1.73m2 Critically low >=60 [facility] Comment on above: Performed By: #### C MP ####[facility] Ukqmgjavxs7733 [place] [phone]. Farhat Leal Globulin (S) [Mass/Vol] 3.2 g/dL Normal [facility] Comment on above: Performed By: #### C MP ####[facility] Iwrgntqkjk9158 [place] [phone]. Farhat Leal Glucose [Mass/Vol] 165 mg/dL Critically high 74-106 [facility] Comment on above: Performed By: #### C MP ####[facility] Ihtqtjnije2267 [place] [phone]. Farhat Leal Potassium [Moles/Vol] 4.1 mmol/L Normal 3.5-5.1 [facility] Comment on above: Performed By: #### C MP ####[facility] Kpdimewtsl4210 [place] [phone]. Farhat Leal Protein [Mass/Vol] 5.7 g/dL Critically low 6.4-8.2 [facility] Comment on above: Performed By: #### C MP ####[facility] Ukhdrjdulr7286 [place] [phone]. Farhat Leal Sodium [Moles/Vol] 138 mmol/L Normal 136-145 [facility] Comment on above: Performed By: #### C MP ####[facility] Sqiyheosyh8027 [place] [phone]. Farhat Leal Urea nitrogen [Mass/Vol] 51.0 mg/dL Critically high 7.0-18.0 [facility] Comment on above: Performed By: #### C MP ####[facility] Qchafbjodm2455 [place] [address]Dr. Farhat Leal Urea nitrogen/Creatinine [Mass ratio] 33.8 mg/mg Normal [facility] Comment on above: Performed By: #### C MP ####[facility] Rybufcxlbv8[address] [place], [place] [address]Dr. Farhat Leal FK506 (TACROLIMUS) WHOLE BLO ODon 06-15-2022 Tacrolimus (FK506), Blood 16.4 ng/mL Normal 2.0-20.0 [facility] Comment on above: Result Comment: Trou gh (immediately following transplant) 15.0 . Trough (steady state, 2 weeks or more after transplant): 3.0 - 8.0 . Performed by LC-MS/MS technology. Performed By: #### F K506T ####[facility] Lpdymzkvop95[address] [place], [place] [address]Dr. Farhat Leal PROTIMEon 06-15-2022 INR Coag (PPP) [Relative time] 1.64 {INR} Normal [facility] Comment on above: Performed By: #### P T ####[facility] [facility] [address]nks[address] [place], [place] [address]Dr. Farhat Leal INR GUIDELINES SEE BELOW Normal [facility] Comment on above: Result Comment: MALINA RED INR: 2.0 - 3.0 CONDITIONS NOT LISTED BELOW 2.5 - 3.5 FOR PROSTHETIC HEART VALVE REPLACEMENT 2.5 - 3.5 RECURRENT THROMBOSIS Performed By: #### P T ####[facility] [address] [place] [address]Dr. Farhat Leal PT Coag (PPP) [Time] 16.9 s Critically high 9.0-11.6 [facility] Comment on above: Performed By: #### P T ####[facility] Bljcgcfmcs4[address] [place], [place] [address]Dr. Madelynlorri Leal CBC AUTO DIFFon 06-12-2022 BASO # 0.0 103/ul Normal 0.0-0.1 [facility] Comment on above: Performed By: #### C BC ####[facility] Updnieopuu79[address] [place], [place] [address]Dr. Farhat Leal Basophils/100 WBC (Bld) 0.4 % Normal 0.2-2.0 [facility] Comment on above: Performed By: #### C BC ####[facility] Rmuehzxpoy[address] [place], [place] [address]Dr. Farhat Leal EO # 0.4 103/ul Normal 0.0-0.7 [facility] Comment on above: Performed By: #### C BC ####[facility] Tadxijnmex[address] [place], [place] [address]Dr. Farhat Leal Eosinophils/100 WBC (Bld) 5.4 % Normal 0.9-7.0 [facility] Comment on above: Performed By: #### C BC ####[facility] Xmoicsxwmt188[address] [place], [place] [address]Dr. Farhat Leal Erythrocyte distribution width (RBC) [Ratio] 14.7 % Normal 11.0-15.0 [facility] Comment on above: Performed By: #### C BC ####[facility] Stjdjkaqbt[address] [place], [place] [address]Dr. Farhat Leal Hematocrit (Bld) [Volume fraction] 34.8 % Critically low 42.0-54.0 [facility] Comment on above: Performed By: #### C BC ####[facility] Insdaahaox1735[address] [place], [place] [address]Dr. Farhat Leal Hemoglobin (Bld) [Mass/Vol] 11.7 g/dL Critically low 14.0-18.0 [facility] Comment on above: Performed By: #### C BC ####[facility] [address]ds[address]grs[address] [place] [phone]. Farhat Leal IG # 0.02 10e3/ul Normal 0.00-0.03 [facility] Comment on above: Performed By: #### C BC ####[facility] Vyzsxsthot[address] [place] [phone]. Farhat Leal IG % 0.3 % Normal 0.0-0.5 [facility] Comment on above: Performed By: #### C BC ####[facility] Tellyuzwkj[address] [place] [address]Dr. Farhat Leal LYMPH # 2.5 103/ul Normal 1.2-3.8 [facility] Comment on above: Performed By: #### C BC ####[facility] Ngsaxapidx[address] [place] [address]Dr. Madelynlorri Leal Lymphocytes/100 WBC (Bld) 36.8 % Normal 20.5-60.0 [facility] Comment on above: Performed By: #### C BC ####[facility] Bngacovlxz[address] [place] [address]Dr. Farhat Leal MANUAL DIFF REQ NO Normal [facility] Comment on above: Performed By: #### C BC ####[facility] Idjzjftsey[address] [place] [phone]. Farhat Leal MCH (RBC) [Entitic mass] 30.9 pg Normal 25.9-34.0 [facility] Comment on above: Performed By: #### C BC ####[facility] Blvvxmxrqf[address] [place], [place] [id number]. Farhat Leal MCHC (RBC) [Mass/Vol] 33.6 g/dL Normal 29.9-35.2 [facility] Comment on above: Performed By: #### C BC ####[facility] [address]rjdmeptje[address] [place] [phone]. Farhat Leal MCV (RBC) [Entitic vol] 91.8 fL Normal 80.0-94.0 [facility] Comment on above: Performed By: #### C BC ####[facility] Pq[address]egoyfxt[address] [place] [phone]. Farhat Leal MONO # 0.8 103/ul Normal 0.3-0.8 [facility] Comment on above: Performed By: #### C BC ####[facility] Ymimyjjxjk43[address] [place] [phone]. Farhat Leal Monocytes/100 WBC (Bld) 11.9 % Normal 1.7-12.0 [facility] Comment on above: Performed By: #### C BC ####[facility] Ygch[address]kvwa[address] [place] [phone]. Farhat Leal NEUT # 3.1 103/ul Normal 1.4-6.5 [facility] Comment on above: Performed By: #### C BC ####[facility] Dasnaiiagt00[address] [place], [place] [address]Dr. Farhat Leal Neutrophils/100 WBC (Bld) 45.2 % Normal 43.0-75.0 [facility] Comment on above: Performed By: #### C BC ####[facility] Pbwdwgewur[address] [place] [phone]. Farhat Leal Platelet mean volume (Bld) [Entitic vol] 10.5 fL Normal 9.5-13.5 [facility] Comment on above: Performed By: #### C BC ####[facility] Psjvbjevea66[address] [place] [phone]. Farhat Leal PLT 175 103/ul Normal 150-450 [facility] Comment on above: Performed By: #### C BC ####[facility] Hjdwmtvled[address] [place], [place] [id number]. Farhat Leal RBC 3.79 106/ul Critically low 4.70-6.10 [facility] Comment on above: Performed By: #### C BC ####[facility] Xtdmquczpz32[address] [place] [phone]. Farhat Leal WBC 6.8 103/ul Normal 4.0-11.0 [facility] Comment on above: Performed By: #### C BC ####[facility] Qempokhxuz[address] [place] [address]Dr. Farhat Leal MAGNESIUMon 06-12-2022 Magnesium [Mass/Vol] 1.6 mg/dL Critically low 1.8-2.4 [facility] Comment on above: Performed By: #### C MP, MG, PHOS ####[facility] Hazgzkcqxi[address] [place] [address]Dr. Farhat Leal PHOSPHORUSon 06-12-2022 Phosphate [Mass/Vol] 3.8 mg/dL Normal 2.6-4.7 [facility] Comment on above: Performed By: #### C MP, MG, PHOS ####[facility] [address]cx[address] [place] [address]Dr. Farhat Leal PROF 14(COMP METB)on 023 Albumin [Mass/Vol] 2.6 g/dL Critically low 3.4-5.0 [facility] Comment on above: Performed By: #### C MP, MG, PHOS ####[facility] Qyzybdvbkl8[address] [place], [place] [address]Dr. Farhat Leal Albumin/Globulin [Mass ratio] 0.8 {ratio} Normal [facility] Comment on above: Performed By: #### C MP, MG, PHOS ####[facility] Zvflkqsvrg217[address] [place] [address]Dr. Farhat Leal ALP [Catalytic activity/Vol] 64 U/L Normal 46-116 [facility] Comment on above: Performed By: #### C MP, MG, PHOS ####[facility] Bcdogojabj48[address] [place] [address]Dr. Farhat Leal ALT [Catalytic activity/Vol] 18 U/L Normal 16-63 [facility] Comment on above: Performed By: #### C MP, MG, PHOS ####[facility] Yabyfareyy36[address] [place] [address]Dr. Farhat Leal Anion gap [Moles/Vol] 12.9 mmol/L Normal [facility] Comment on above: Performed By: #### C MP, MG, PHOS ####[facility] Xlaoorhdil5[address] [place] [address]Dr. Farhat Leal AST [Catalytic activity/Vol] 18 U/L Normal 15-37 [facility] Comment on above: Performed By: #### C MP, MG, PHOS ####[facility] Slyyzarhau[address] [place] [address]Dr. Farhat Leal Bilirubin [Mass/Vol] 0.4 mg/dL Normal 0.2-1.0 [facility] Comment on above: Performed By: #### C MP, MG, PHOS ####[facility] Tvewkfsvbq1318[address] [place], [place] [address]Dr. Farhat Leal Calcium [Mass/Vol] 8.7 mg/dL Normal 8.5-10.1 [facility] Comment on above: Performed By: #### C MP, MG, PHOS ####[facility] Rbqhvlzmjp37[address] [place], [place] [address]Dr. Farhat Leal Chloride [Moles/Vol] 105 mmol/L Normal 98-107 [facility] Comment on above: Performed By: #### C MP, MG, PHOS ####[facility] Pwmwbnuvex75[address] [place] [address]Dr. Farhat Leal CO2 [Moles/Vol] 27.9 mmol/L Normal 21.0-32.0 [facility] Comment on above: Performed By: #### C MP, MG, PHOS ####[facility] Akeiwjxmtf464[address] [place], [place] [address]Dr. Farhat Leal Creatinine [Mass/Vol] 1.53 mg/dL Critically high 0.70-1.30 [facility] Comment on above: Performed By: #### C MP, MG, PHOS ####[facility] Anzxbfyltb1979[address] [place], [place] [address]Dr. Farhat Leal EGFR-AF KITTITIAN 54 mL/min/1.73m2 Critically low >=60 [facility] Comment on above: Performed By: #### C MP, MG, PHOS ####[facility] Qheecdtdpc32[address] [place] [address]Dr. Farhat Leal EGFR-NON AF KITTITIAN 44 mL/min/1.73m2 Critically low >=60 [facility] Comment on above: Performed By: #### C MP, MG, PHOS ####[facility] Dbhxidxzsg57[address] [place] [address]Dr. Farhat Leal Globulin (S) [Mass/Vol] 3.4 g/dL Normal [facility] Comment on above: Performed By: #### C MP, MG, PHOS ####[facility] Ibzstousjc7865 [place] [address]Dr. Farhat Leal Glucose [Mass/Vol] 179 mg/dL Critically high 74-106 T [facility] Comment on above: Performed By: #### C MP, MG, PHOS ####[facility] Ucfgurwaoi7[address] [place], [place] [address]Dr. Farhat Leal Potassium [Moles/Vol] 3.8 mmol/L Normal 3.5-5.1 [facility] Comment on above: Performed By: #### C MP, MG, PHOS ####[facility] Cgtclbeizd256[address] [place], [place] [address]Dr. Farhat Leal Protein [Mass/Vol] 6.0 g/dL Critically low 6.4-8.2 [facility] Comment on above: Performed By: #### C MP, MG, PHOS ####[facility] Rgoajhhjto8939[address] [place], [place] [address]Dr. Farhat Leal Sodium [Moles/Vol] 142 mmol/L Normal 136-145 [facility] Comment on above: Performed By: #### C MP, MG, PHOS ####[facility] Samogaccdv6637[address] [place], [place] [address]Dr. Farhat Leal Urea nitrogen [Mass/Vol] 56.0 mg/dL Critically high 7.0-18.0 [facility] Comment on above: Performed By: #### C MP, MG, PHOS ####[facility] Qqyb[address]cjho[address] [place] [address]Dr. Farhat Leal Urea nitrogen/Creatinine [Mass ratio] 36.6 mg/mg Normal [facility] Comment on above: Performed By: #### C MP, MG, PHOS ####[facility] Eojftmxgzz7[address] [place] [address]Dr. Farhat Leal FK506 (TACROLIMUS) WHOLE BLO ODon 06-08-2022 Tacrolimus (FK506), Blood 13.2 ng/mL Normal 2.0-20.0 [facility] Comment on above: Result Comment: Trou gh (immediately following transplant) 15.0 . Trough (steady state, 2 weeks or more after transplant): 3.0 - 8.0 . Performed by LC-MS/MS technology. Performed By: #### F K506T ####[facility] Hsmespumye3815[address] [place], [place] [address]Dr. Farhat Leal CBC AUTO DIFFon 06-05-2022 BASO # 0.1 103/ul Normal 0.0-0.1 [facility] Comment on above: Performed By: #### C BC ####[facility] Xybxcstnbr[address] [place], [place] [address]Dr. Farhat Leal Basophils/100 WBC (Bld) 0.8 % Normal 0.2-2.0 [facility] Comment on above: Performed By: #### C BC ####[facility] Ipsedviuvu76[address] [place], [place] [address]Dr. Farhat Leal EO # 0.3 103/ul Normal 0.0-0.7 [facility] Comment on above: Performed By: #### C BC ####[facility] Bvrwkcewse257[address] [place], [place] [address]Dr. Farhat Leal Eosinophils/100 WBC (Bld) 4.7 % Normal 0.9-7.0 [facility] Comment on above: Performed By: #### C BC ####[facility] Kbuneszhus8[address] [place], [place] [address]Dr. Farhat Leal Erythrocyte distribution width (RBC) [Ratio] 15.1 % Critically high 11.0-15.0 [facility] Comment on above: Performed By: #### C BC ####[facility] Mecejgrmls8724[address] [place], [place] [address]Dr. Farhat Leal Hematocrit (Bld) [Volume fraction] 35.5 % Critically low 42.0-54.0 [facility] Comment on above: Performed By: #### C BC ####[facility] Lrdktrpkhz14[address] [place] [address]Dr. Farhat Leal Hemoglobin (Bld) [Mass/Vol] 11.7 g/dL Critically low 14.0-18.0 [facility] Comment on above: Performed By: #### C BC ####[facility] Vfuinkivfr[address] [place] [address]Dr. Farhat Leal IG # 0.01 10e3/ul Normal 0.00-0.03 [facility] Comment on above: Performed By: #### C BC ####[facility] Febitxwywa4634 [place] [address]Dr. Farhat Leal IG % 0.2 % Normal 0.0-0.5 [facility] Comment on above: Performed By: #### C BC ####[facility] Ukyrephcvl7[address] [place], [place] [address]Dr. Farhat Leal LYMPH # 2.1 103/ul Normal 1.2-3.8 [facility] Comment on above: Performed By: #### C BC ####[facility] N[address]zuxjiobp65[address] [place], [place] [address]Dr. Farhat Leal Lymphocytes/100 WBC (Bld) 34.5 % Normal 20.5-60.0 [facility] Comment on above: Performed By: #### C BC ####[facility] V[address]jnmtiie[address] [place] [address]Dr. Farhat Leal MANUAL DIFF REQ NO Normal [facility] Comment on above: Performed By: #### C BC ####[facility] Eeljlonqjk76[address] [place] [address]Dr. Farhat Leal MCH (RBC) [Entitic mass] 30.6 pg Normal 25.9-34.0 [facility] Comment on above: Performed By: #### C BC ####[facility] Kpswmnvpyr[address] [place], [place] [id number]. Farhat Leal MCHC (RBC) [Mass/Vol] 33.0 g/dL Normal 29.9-35.2 [facility] Comment on above: Performed By: #### C BC ####[facility] G[address]icqarhw9[address] [place] [phone]. Farhat Leal MCV (RBC) [Entitic vol] 92.9 fL Normal 80.0-94.0 [facility] Comment on above: Performed By: #### C BC ####[facility] Tfhmgvzhxw8[address] [place] [phone]. Farhat Leal MONO # 0.7 103/ul Normal 0.3-0.8 [facility] Comment on above: Performed By: #### C BC ####[facility] Qlpuxerdyk8256 [place] [phone]. Farhat Elvis Monocytes/100 WBC (Bld) 11.4 % Normal 1.7-12.0 [facility] Comment on above: Performed By: #### C BC ####[facility] Qxbunicbus[address] [place], [place] [address]Dr. Farhat Leal NEUT # 2.9 103/ul Normal 1.4-6.5 [facility] Comment on above: Performed By: #### C BC ####[facility] W[address]affrovnl[address] [place], [place] [address]Dr. Farhat Elvis Neutrophils/100 WBC (Bld) 48.4 % Normal 43.0-75.0 [facility] Comment on above: Performed By: #### C BC ####[facility] Iqrsvslanu0[address] [place], [place] [address]Dr. Farhat Elvis Platelet mean volume (Bld) [Entitic vol] 10.7 fL Normal 9.5-13.5 [facility] Comment on above: Performed By: #### C BC ####[facility] J[address]hrbvpjce39[address] [place] [phone]. Farhat Elvis PLT 185 103/ul Normal 150-450 [facility] Comment on above: Performed By: #### C BC ####[facility] Atrtnlvawe[address] [place] [phone]. Farhat Leal RBC 3.82 106/ul Critically low 4.70-6.10 [facility] Comment on above: Performed By: #### C BC ####[facility] Gtbvmlmlrd3095 [place] [phone]. Farhat Leal WBC 6.0 103/ul Normal 4.0-11.0 [facility] Comment on above: Performed By: #### C BC ####[facility] Lxlgxprwfk25[address] [place] [phone]. Farhat Leal MAGNESIUMon 06-05-2022 Magnesium [Mass/Vol] 1.9 mg/dL Normal 1.8-2.4 [facility] Comment on above: Performed By: #### P HOS, MG ####[facility] Obpxlnfezh[address] [place] [address]Dr. Farhat Leal PHOSPHORUSon 06-05-2022 Phosphate [Mass/Vol] 4.4 mg/dL Normal 2.6-4.7 [facility] Comment on above: Performed By: #### P HOS, MG ####[facility] Izueheqviu16[address] [place] [address]Dr. Farhat Elvis PROTIMEon 06-05-2022 INR Coag (PPP) [Relative time] 2.16 {INR} Normal [facility] Comment on above: Performed By: #### P T ####[facility] Stbxfutwuu[address] [place], [place] [address]Dr. Farhat Leal INR GUIDELINES SEE BELOW Normal [facility] Comment on above: Result Comment: MALINA RED INR: 2.0 - 3.0 CONDITIONS NOT LISTED BELOW 2.5 - 3.5 FOR PROSTHETIC HEART VALVE REPLACEMENT 2.5 - 3.5 RECURRENT THROMBOSIS Performed By: #### P T ####[facility] K[address]mwxzfbp7[address] [place] [address]Dr. Farhat Leal PT Coag (PPP) [Time] 21.9 s Critically high 9.0-11.6 [facility] Comment on above: Performed By: #### P T ####[facility] Muxxobmssy14[address] [place] [address]Dr. Farhat Elvis FK506 (TACROLIMUS) WHOLE BLO ODon 06-01-2022 Tacrolimus (FK506), Blood 26.4 ng/mL Invalid Interpretation Code 2.0-20.0 [facility] Comment on above: Result Comment: Trou gh (immediately following transplant) 15.0 . Trough (steady state, 2 weeks or more after transplant): 3.0 - 8.0 . Performed by LC-MS/MS technology.Patient drug level exceeds published reference range. Evaluateclinically for signs of potential toxicity. Performed By: #### F K506T ####[facility] Ebqppijgov91[address] [place], [place] [address]DrSkylar Leal CBC AUTO DIFFon 05-29-2022 BASO # 0.0 103/ul Normal 0.0-0.1 [facility] Comment on above: Performed By: #### C BC ####[facility] Iyifjdwofq4[address] [place], [place] [address]DrSkylar Leal Basophils/100 WBC (Bld) 0.6 % Normal 0.2-2.0 [facility] Comment on above: Performed By: #### C BC ####[facility] Upzquolmch8537[address] [place], [place] [address]DrSkylar Leal EO # 0.3 103/ul Normal 0.0-0.7 [facility] Comment on above: Performed By: #### C BC ####[facility] Qqvqskzpgw1875[address] [place], [place] [address]DrSkylar Leal Eosinophils/100 WBC (Bld) 4.7 % Normal 0.9-7.0 [facility] Comment on above: Performed By: #### C BC ####[facility] Rgrjfdaidz646[address] [place], [place] [address]DrSkylar Leal Erythrocyte distribution width (RBC) [Ratio] 15.3 % Critically high 11.0-15.0 [facility] Comment on above: Performed By: #### C BC ####[facility] Gmlumqmyoq[address] [place], [place] [address]DrSkylar Leal Hematocrit (Bld) [Volume fraction] 36.6 % Critically low 42.0-54.0 [facility] Comment on above: Performed By: #### C BC ####[facility] Mrivjplrpj25[address] [place], [place] [address]DrSkylar Leal Hemoglobin (Bld) [Mass/Vol] 12.3 g/dL Critically low 14.0-18.0 [facility] Comment on above: Performed By: #### C BC ####[facility] Vvdyvgwwer045[address] [place] [address]DrSkylar Leal IG # 0.02 10e3/ul Normal 0.00-0.03 [facility] Comment on above: Performed By: #### C BC ####[facility] Qpygqpkbkz5944 [place] [address]DrSkylar Leal IG % 0.3 % Normal 0.0-0.5 [facility] Comment on above: Performed By: #### C BC ####[facility] Kfhnayuhcg9634[address] [place], [place] [address]DrSkylar Leal LYMPH # 2.8 103/ul Normal 1.2-3.8 [facility] Comment on above: Performed By: #### C BC ####[facility] Tnwrqtrysh9355[address] [place], [place] [address]DrSkylar Leal Lymphocytes/100 WBC (Bld) 44.4 % Normal 20.5-60.0 [facility] Comment on above: Performed By: #### C BC ####[facility] Zaqzjqsizi1376[address] [place], [place] [address]DrSkylar Leal MANUAL DIFF REQ NO Normal [facility] Comment on above: Performed By: #### C BC ####[facility] Fgoatbhquz0605[address] [place], [place] [address]DrSkylar Leal MCH (RBC) [Entitic mass] 30.4 pg Normal 25.9-34.0 [facility] Comment on above: Performed By: #### C BC ####[facility] Vtryxvvmmq8532[address] [place], [place] [address]DrSkylar Leal MCHC (RBC) [Mass/Vol] 33.6 g/dL Normal 29.9-35.2 [facility] Comment on above: Performed By: #### C BC ####[facility] Kqvstfwxod1946[address] [place], [place] [address]DrSkylar Leal MCV (RBC) [Entitic vol] 90.4 fL Normal 80.0-94.0 [facility] Comment on above: Performed By: #### C BC ####[facility] Ibfmarmhdc7904[address] [place], [place] [address]Dr. Farhat Leal MONO # 0.7 103/ul Normal 0.3-0.8 [facility] Comment on above: Performed By: #### C BC ####[facility] Dylcanaigw9376[address] [place], [place] [address]Dr. Farhat Elal Monocytes/100 WBC (Bld) 10.7 % Normal 1.7-12.0 [facility] Comment on above: Performed By: #### C BC ####[facility] Thvdyrlswl867[address] [place], [place] [address]Dr. Farhat Leal NEUT # 2.5 103/ul Normal 1.4-6.5 [facility] Comment on above: Performed By: #### C BC ####[facility] Rxqxxahzme2889[address] [place], [place] [address]Dr. Farhat Leal Neutrophils/100 WBC (Bld) 39.3 % Critically low 43.0-75.0 [facility] Comment on above: Performed By: #### C BC ####[facility] Gyvyxkdrrl259[address] [place], [place] [address]Dr. Farhat Leal Platelet mean volume (Bld) [Entitic vol] 10.5 fL Normal 9.5-13.5 [facility] Comment on above: Performed By: #### C BC ####[facility] Ityhafqzfg5[address] [place], [place] [address]Dr. Farhat Elvis PLT 190 103/ul Normal 150-450 [facility] Comment on above: Performed By: #### C BC ####[facility] Akjrnxnxzo2930[address] [place], [place] [address]Dr. Madelynlorri Elvis RBC 4.05 106/ul Critically low 4.70-6.10 [facility] Comment on above: Performed By: #### C BC ####[facility] Bquenivvua9674[address] [place], [place] [address]Dr. Farhat Leal WBC 6.4 103/ul Normal 4.0-11.0 [facility] Comment on above: Performed By: #### C BC ####[facility] Msefwtaodn8[address] [place] [address]Dr. Farhat Leal PROF 14(COMP METB)on 023 Albumin [Mass/Vol] 2.5 g/dL Critically low 3.4-5.0 [facility] Comment on above: Performed By: #### C MP ####[facility] Opkwssamio2190[address] [place], [place] [address]Dr. Farhat Leal Albumin/Globulin [Mass ratio] 0.8 {ratio} Normal [facility] Comment on above: Performed By: #### C MP ####[facility] Nglxgtkgga5349[address] [place], [place] [address]Dr. Farhat Leal ALP [Catalytic activity/Vol] 61 U/L Normal 46-116 [facility] Comment on above: Performed By: #### C MP ####[facility] Ofsufbpmvm0050[address] [place], [place] [address]Dr. Farhat Leal ALT [Catalytic activity/Vol] 16 U/L Normal 16-63 [facility] Comment on above: Performed By: #### C MP ####[facility] Zsxndzxetq9[address] [place], [place] [address]Dr. Farhat Leal Anion gap [Moles/Vol] 12.3 mmol/L Normal [facility] Comment on above: Performed By: #### C MP ####[facility] Fwdrlrdrrv9[address] [place], [place] [address]Dr. Farhat Leal AST [Catalytic activity/Vol] 18 U/L Normal 15-37 [facility] Comment on above: Performed By: #### C MP ####[facility] Tekfxugneq155[address] [place], [place] [address]Dr. Farhat Leal Bilirubin [Mass/Vol] 0.5 mg/dL Normal 0.2-1.0 [facility] Comment on above: Performed By: #### C MP ####[facility] Jgqcxsnczp1587[address] [place], [place] [address]Dr. Farhat Leal Calcium [Mass/Vol] 8.6 mg/dL Normal 8.5-10.1 [facility] Comment on above: Performed By: #### C MP ####[facility] T[address]zwecmwr[address] [place] [address]Dr. Farhat Elvis Chloride [Moles/Vol] 105 mmol/L Normal 98-107 [facility] Comment on above: Performed By: #### C MP ####[facility] Sulcgqhfuk[address] [place] [address]Dr. Farhat Elvis CO2 [Moles/Vol] 28.6 mmol/L Normal 21.0-32.0 [facility] Comment on above: Performed By: #### C MP ####[facility] Dppprcummz[address] [place], [place] [address]Dr. Farhat Leal Creatinine [Mass/Vol] 1.47 mg/dL Critically high 0.70-1.30 [facility] Comment on above: Performed By: #### C MP ####[facility] [facility] Ymsgsgtvtd[address] [place], [place] [address]Dr. Farhat Elvis EGFR-AF KITTITIAN 56 mL/min/1.73m2 Critically low >=60 [facility] Comment on above: Performed By: #### C MP ####[facility] Wdpfwxlaqt4[address] [place], [place] [address]Dr. Madelynlorri Elvis EGFR-NON AF KITT[place]IAN 46 mL/min/1.73m2 Critically low >=60 [facility] Comment on above: Performed By: #### C MP ####[facility] Kcdvazpgpq0832[address] [place], [place] [address]Dr. Farhat Leal Globulin (S) [Mass/Vol] 3.3 g/dL Normal [facility] Comment on above: Performed By: #### C MP ####[facility] Qiaktlqxgl0689[address] [place], [place] [address]Dr. Farhat Leal Glucose [Mass/Vol] 164 mg/dL Critically high 74-106 T [facility] Comment on above: Performed By: #### C MP ####[facility] Vtnsxzqnlt5813[address] [place], [place] [address]Dr. Farhat Leal Potassium [Moles/Vol] 3.9 mmol/L Normal 3.5-5.1 [facility] Comment on above: Performed By: #### C MP ####[facility] [address] [place] [address]Dr. Farhat Leal Protein [Mass/Vol] 5.8 g/dL Critically low 6.4-8.2 Th e [facility] Comment on above: Performed By: #### C MP ####[facility] Ppaxyqgfrc[address] [place] [address]Dr. Farhat Leal Sodium [Moles/Vol] 142 mmol/L Normal 136-145 [facility] Comment on above: Performed By: #### C MP ####[facility] Vueugnbrtm2344[address] [place], [place] [address]Dr. Farhat Leal Urea nitrogen [Mass/Vol] 53.0 mg/dL Critically high 7.0-18.0 [facility] Comment on above: Performed By: #### C MP ####[facility] Opovdxxavj3730[address] [place], [place] [address]Dr. Farhat Leal Urea nitrogen/Creatinine [Mass ratio] 36.1 mg/mg Normal [facility] Comment on above: Performed By: #### C MP ####[facility] Lzmljbndps1067[address] [place], [place] [address]DrSkylar Leal PROTIMEon 05-29-2022 INR Coag (PPP) [Relative time] 2.41 {INR} Normal [facility] Comment on above: Performed By: #### P T ####[facility] Rsujxxlibp522[address] [place], [place] [address]Dr. Farhat Leal INR GUIDELINES SEE BELOW Normal [facility] Comment on above: Result Comment: MALINA RED INR: 2.0 - 3.0 CONDITIONS NOT LISTED BELOW 2.5 - 3.5 FOR PROSTHETIC HEART VALVE REPLACEMENT 2.5 - 3.5 RECURRENT THROMBOSIS Performed By: #### P T ####[facility] Xcdogjevyd186[address] [place], [place] [address]Dr. Farhat Leal PT Coag (PPP) [Time] 24.3 s Critically high 9.0-11.6 [facility] Comment on above: Performed By: #### P T ####[facility] Hbcwzbsvsc67[address] [place], [place] [address]Dr. Farhat Leal FK506 (TACROLIMUS) WHOLE BLO ODon 05-25-2022 Tacrolimus (FK506), Blood 5.1 ng/mL Normal 2.0-20.0 [facility] Comment on above: Result Comment: Trou gh (immediately following transplant) 15.0 . Trough (steady state, 2 weeks or more after transplant): 3.0 - 8.0 . Performed by LC-MS/MS technology. Performed By: #### F K506T ####[facility] Fyqflepqwf2076[address] [place], [place] [address]Dr. Farhat Leal CBC AUTO DIFFon 05-22-2022 BASO # 0.0 103/ul Normal 0.0-0.1 [facility] Comment on above: Performed By: #### C BC ####[facility] Obinqjjqed7411[address] [place], [place] [address]Dr. Farhat Leal Basophils/100 WBC (Bld) 0.5 % Normal 0.2-2.0 [facility] Comment on above: Performed By: #### C BC ####[facility] Ytqchljonj7524[address] [place], [place] [address]Dr. Farhat Leal EO # 0.2 103/ul Normal 0.0-0.7 [facility] Comment on above: Performed By: #### C BC ####[facility] Kgxbrfsjgi2236[address] [place], [place] [address]Dr. Farhat Leal Eosinophils/100 WBC (Bld) 4.0 % Normal 0.9-7.0 [facility] Comment on above: Performed By: #### C BC ####[facility] Vdoatwcnwr1345[address] [place], [place] [address]Dr. Farhat Leal Erythrocyte distribution width (RBC) [Ratio] 15.5 % Critically high 11.0-15.0 [facility] Comment on above: Performed By: #### C BC ####[facility] Wyouuhhknd401[address] [place], [place] [address]Dr. Farhat Leal Hematocrit (Bld) [Volume fraction] 34.1 % Critically low 42.0-54.0 [facility] Comment on above: Performed By: #### C BC ####[facility] [address]zdfofybc[address] [place] [address]Dr. Farhat Leal Hemoglobin (Bld) [Mass/Vol] 11.3 g/dL Critically low 14.0-18.0 [facility] Comment on above: Performed By: #### C BC ####[facility] Tcooyamkdd[address] [place] [address]Dr. Farhat Leal IG # 0.03 10e3/ul Normal 0.00-0.03 [facility] Comment on above: Performed By: #### C BC ####[facility] Byzsdkqutj2560 [place] [address]Dr. Farhat Leal IG % 0.5 % Normal 0.0-0.5 [facility] Comment on above: Performed By: #### C BC ####[facility] Kojerkhbld5118[address] [place], [place] [address]Dr. Farhat Leal LYMPH # 2.1 103/ul Normal 1.2-3.8 [facility] Comment on above: Performed By: #### C BC ####[facility] Zqrqhdiwaf7837[address] [place], [place] [address]Dr. Madelynlorri Leal Lymphocytes/100 WBC (Bld) 34.6 % Normal 20.5-60.0 [facility] Comment on above: Performed By: #### C BC ####[facility] Lqvmmgqvpm55[address] [place] [address]Dr. Farhat Leal MANUAL DIFF REQ NO Normal [facility] Comment on above: Performed By: #### C BC ####[facility] F[address]awaryxy7[address] [place] [address]Dr. Farhat Leal MCH (RBC) [Entitic mass] 30.3 pg Normal 25.9-34.0 [facility] Comment on above: Performed By: #### C BC ####[facility] Faddtmyaeg[address] [place] [address]Dr. Farhat Leal MCHC (RBC) [Mass/Vol] 33.1 g/dL Normal 29.9-35.2 [facility] Comment on above: Performed By: #### C BC ####[facility] J[address]flfl[address]ru[address] [place] [phone]. Farhat Leal MCV (RBC) [Entitic vol] 91.4 fL Normal 80.0-94.0 [facility] Comment on above: Performed By: #### C BC ####[facility] Slcyjfkknl4[address] [place] [phone]. Farhat Leal MONO # 0.7 103/ul Normal 0.3-0.8 [facility] Comment on above: Performed By: #### C BC ####[facility] Whocnaomzo1665 [place] [address]Dr. Farhat Leal Monocytes/100 WBC (Bld) 11.6 % Normal 1.7-12.0 [facility] Comment on above: Performed By: #### C BC ####[facility] Hlbvuchkrz1629[address] [place], [place] [address]Dr. Farhat Leal NEUT # 2.9 103/ul Normal 1.4-6.5 [facility] Comment on above: Performed By: #### C BC ####[facility] Mzwfstcbza[address] [place], [place] [id number]. Farhat Leal Neutrophils/100 WBC (Bld) 48.8 % Normal 43.0-75.0 [facility] Comment on above: Performed By: #### C BC ####[facility] [address]txkpt[address] [place] [phone]. Farhat Leal Platelet mean volume (Bld) [Entitic vol] 10.9 fL Normal 9.5-13.5 [facility] Comment on above: Performed By: #### C BC ####[facility] Kdftrdlitf[address] [place] [phone]. Farhta Leal PLT 186 103/ul Normal 150-450 [facility] Comment on above: Performed By: #### C BC ####[facility] Tlperyaiis[address] [place] [phone]. Farhat Elvis RBC 3.73 106/ul Critically low 4.70-6.10 [facility] Comment on above: Performed By: #### C BC ####[facility] Efeeugpwcc[address] [place] [address]Dr. Farhat Leal WBC 6.0 103/ul Normal 4.0-11.0 [facility] Comment on above: Performed By: #### C BC ####[facility] Amdlezvumi4[address] [place] [address]Dr. Farhat Leal PROF 14(COMP METB)on 023 Albumin [Mass/Vol] 2.7 g/dL Critically low 3.4-5.0 Th [facility] Comment on above: Performed By: #### C MP ####[facility] Ipzgkeioru[address] [place] [address]Dr. Farhat Leal Albumin/Globulin [Mass ratio] 0.8 {ratio} Normal [facility] Comment on above: Performed By: #### C MP ####[facility] Laigdlcofj20[address] [place], [place] [address]Dr. Farhat Leal ALP [Catalytic activity/Vol] 60 U/L Normal 46-116 [facility] Comment on above: Performed By: #### C MP ####[facility] Efjqhlnmvw199[address] [place], [place] [address]Dr. Farhat Leal ALT [Catalytic activity/Vol] 17 U/L Normal 16-63 [facility] Comment on above: Performed By: #### C MP ####[facility] Osxgamahzp7[address] [place], [place] [address]Dr. Farhat Leal Anion gap [Moles/Vol] 9.6 mmol/L Normal [facility] Comment on above: Performed By: #### C MP ####[facility] Cwiyeowzvm3299[address] [place], [place] [address]Dr. Farhat Leal AST [Catalytic activity/Vol] 14 U/L Critically low 15-37 [facility] Comment on above: Performed By: #### C MP ####[facility] Sroromneli[address] [place], [place] [address]Dr. Farhat Leal Bilirubin [Mass/Vol] 0.5 mg/dL Normal 0.2-1.0 [facility] Comment on above: Performed By: #### C MP ####[facility] Kiybhrpmmp56[address] [place] [phone]. Farhat Leal Calcium [Mass/Vol] 8.4 mg/dL Critically low 8.5-10.1 Th [facility] Comment on above: Performed By: #### C MP ####[facility] Idnhaqolkt18[address] [place] [address]Dr. Farhat Leal Chloride [Moles/Vol] 104 mmol/L Normal 98-107 [facility] Comment on above: Performed By: #### C MP ####[facility] Yxldacemrh8780 [place] [address]Dr. Farhat Leal CO2 [Moles/Vol] 27.2 mmol/L Normal 21.0-32.0 [facility] Comment on above: Performed By: #### C MP ####[facility] Wvkywuxdca2624[address] [place], [place] [address]Dr. Farhat Leal Creatinine [Mass/Vol] 1.24 mg/dL Normal 0.70-1.30 [facility] Comment on above: Performed By: #### C MP ####[facility] Tdgsddtedr[address] [place] [address]Dr. Farhat Leal EGFR-AF KITTITIAN >60 Normal >=60 [facility] Comment on above: Performed By: #### C MP ####[facility] Cszmkqwtpq7925 [place] [address]Dr. Farhat Leal EGFR-NON AF [place]ITT[place]IAN 57 mL/min/1.73m2 Critically low >=60 [facility] Comment on above: Performed By: #### C MP ####[facility] Qcluypyohy6118 [place] [phone]. Farhat Leal Globulin (S) [Mass/Vol] 3.3 g/dL Normal [facility] Comment on above: Performed By: #### C MP ####[facility] Vlnlxrbekz5150 [place] [address]Dr. Farhat Leal Glucose [Mass/Vol] 275 mg/dL Critically high 74-106 T [facility] Comment on above: Performed By: #### C MP ####[facility] Jbqgtasabo7827 [place] [phone]. Farhat Leal Potassium [Moles/Vol] 3.8 mmol/L Normal 3.5-5.1 [facility] Comment on above: Performed By: #### C MP ####[facility] Swqusqinaw3554 [place] [address]Dr. Farhat Leal Protein [Mass/Vol] 6.0 g/dL Critically low 6.4-8.2 Th e [facility] Comment on above: Performed By: #### C MP ####[facility] Xyiadlqxdb3349[address] [place], [place] [address]Dr. Farhat Leal Sodium [Moles/Vol] 137 mmol/L Normal 136-145 [facility] Comment on above: Performed By: #### C MP ####[facility] Ynqomyvcae8196[address] [place], [place] [address]Dr. Farhat Leal Urea nitrogen [Mass/Vol] 54.0 mg/dL Critically high 7.0-18.0 [facility] Comment on above: Performed By: #### C MP ####[facility] Pigihowmuz786[address] [place], [place] [address]Dr. Farhat Leal Urea nitrogen/Creatinine [Mass ratio] 43.5 mg/mg Normal [facility] Comment on above: Performed By: #### C MP ####[facility] Aubtpbwfbn5306[address] [place], [place] [address]Dr. Farhat Leal PROTIMEon 05-22-2022 INR Coag (PPP) [Relative time] 2.27 {INR} Normal [facility] Comment on above: Performed By: #### P T ####[facility] Idmxnkoshn2325[address] [place], [place] [address]Dr. Farhat Leal INR GUIDELINES SEE BELOW Normal [facility] Comment on above: Result Comment: MALINA RED INR: 2.0 - 3.0 CONDITIONS NOT LISTED BELOW 2.5 - 3.5 FOR PROSTHETIC HEART VALVE REPLACEMENT 2.5 - 3.5 RECURRENT THROMBOSIS Performed By: #### P T ####[facility] Yevmsjtgbj7533[address] [place], [place] [address]Dr. Farhat Leal PT Coag (PPP) [Time] 23.0 s Critically high 9.0-11.6 [facility] Comment on above: Performed By: #### P T ####[facility] Mkqvaywhod1800[address] [place], [place] [address]Dr. Farhat Leal FK506 (TACROLIMUS) WHOLE BLO ODon 05-19-2022 Tacrolimus (FK506), Blood 7.8 ng/mL Normal 2.0-20.0 [facility] Comment on above: Result Comment: Trou gh (immediately following transplant) 15.0 . Trough (steady state, 2 weeks or more after transplant): 3.0 - 8.0 . Performed by LC-MS/MS technology. Performed By: #### F K506T ####[facility] Hvastqcphs389[address] [place], [place] [address]Dr. Farhat Elvis CBC AUTO DIFFon 05-15-2022 BASO # 0.0 103/ul Normal 0.0-0.1 [facility] Comment on above: Performed By: #### C BC ####[facility] Yruktthipy7479[address] [place], [place] [address]Dr. Madelynlorri Leal Basophils/100 WBC (Bld) 0.4 % Normal 0.2-2.0 [facility] Comment on above: Performed By: #### C BC ####[facility] Hfngvhtjya7368[address] [place], [place] [address]Dr. Farhat Leal EO # 0.2 103/ul Normal 0.0-0.7 [facility] Comment on above: Performed By: #### C BC ####[facility] Qtbscimbsg4250[address] [place], [place] [address]Dr. Farhat Leal Eosinophils/100 WBC (Bld) 3.0 % Normal 0.9-7.0 [facility] Comment on above: Performed By: #### C BC ####[facility] Nwevrzzqjf6127[address] [place], [place] [address]Dr. Farhat Leal Erythrocyte distribution width (RBC) [Ratio] 15.7 % Critically high 11.0-15.0 [facility] Comment on above: Performed By: #### C BC ####[facility] Anxoskvqdh[address] [place] [address]Dr. Farhat Leal Hematocrit (Bld) [Volume fraction] 36.8 % Critically low 42.0-54.0 [facility] Comment on above: Performed By: #### C BC ####[facility] Zawbptlcgf4453 [place] [address]Dr. Farhat Elvis Hemoglobin (Bld) [Mass/Vol] 12.4 g/dL Critically low 14.0-18.0 [facility] Comment on above: Performed By: #### C BC ####[facility] Ulxfjxtirr3911 [place] [address]Dr. Farhat Leal IG # 0.01 10e3/ul Normal 0.00-0.03 [facility] Comment on above: Performed By: #### C BC ####[facility] Unimgsituu5985[address] [place], [place] [address]Dr. Farhat Leal IG % 0.1 % Normal 0.0-0.5 [facility] Comment on above: Performed By: #### C BC ####[facility] Xnnopithqw4944[address] [place], [place] [address]Dr. Madelynlorri Leal LYMPH # 2.4 103/ul Normal 1.2-3.8 [facility] Comment on above: Performed By: #### C BC ####[facility] Gsusornhrx8264[address] [place], [place] [address]Dr. Farhat Leal Lymphocytes/100 WBC (Bld) 35.6 % Normal 20.5-60.0 [facility] Comment on above: Performed By: #### C BC ####[facility] Gmlzacytyv1101[address] [place], [place] [address]Dr. Madelynlorri Leal MANUAL DIFF REQ NO Normal [facility] Comment on above: Performed By: #### C BC ####[facility] Vpnyaxhgju909[address] [place], [place] [address]Dr. Farhat Leal MCH (RBC) [Entitic mass] 30.1 pg Normal 25.9-34.0 [facility] Comment on above: Performed By: #### C BC ####[facility] Svsqzhlblc9776 [place] [phone]. Farhat Leal MCHC (RBC) [Mass/Vol] 33.7 g/dL Normal 29.9-35.2 [facility] Comment on above: Performed By: #### C BC ####[facility] Upvcowkatp3772 [place] [phone]. Farhat Leal MCV (RBC) [Entitic vol] 89.3 fL Normal 80.0-94.0 [facility] Comment on above: Performed By: #### C BC ####[facility] Onvvxzroil2967 [place] [phone]. Farhat Leal MONO # 0.7 103/ul Normal 0.3-0.8 [facility] Comment on above: Performed By: #### C BC ####[facility] Tdqbpayzbu2401[address] [place], [place] [address]Dr. Madelynlorri Leal Monocytes/100 WBC (Bld) 10.8 % Normal 1.7-12.0 [facility] Comment on above: Performed By: #### C BC ####[facility] Dolcojxect[address] [place], [place] [id number]. Farhat Leal NEUT # 3.4 103/ul Normal 1.4-6.5 [facility] Comment on above: Performed By: #### C BC ####[facility] Fsuziudvfa7[address] [place], [place] [id number]. Farhat Leal Neutrophils/100 WBC (Bld) 50.1 % Normal 43.0-75.0 [facility] Comment on above: Performed By: #### C BC ####[facility] Vgcwjcbhiu3008 [place] [phone]. Farhat Leal Platelet mean volume (Bld) [Entitic vol] 10.2 fL Normal 9.5-13.5 [facility] Comment on above: Performed By: #### C BC ####[facility] Uwysaqjbdq101[address] [place], [place] [address]Dr. Farhat Elvis PLT 190 103/ul Normal 150-450 [facility] Comment on above: Performed By: #### C BC ####[facility] Orthxgmlai4860 [place] [address]Dr. Farhat Leal RBC 4.12 106/ul Critically low 4.70-6.10 [facility] Comment on above: Performed By: #### C BC ####[facility] Kegrwpuugl[address] [place] [address]Dr. Farhat Leal WBC 6.8 103/ul Normal 4.0-11.0 [facility] Comment on above: Performed By: #### C BC ####[facility] Ibriakkzxr0241 [place] [address]Dr. Farhat Leal PROF 14(COMP METB)on 023 Albumin [Mass/Vol] 2.8 g/dL Critically low 3.4-5.0 [facility] Comment on above: Performed By: #### C MP ####[facility] Gujibqpcyx9938[address] [place], [place] [address]Dr. Farhat Leal Albumin/Globulin [Mass ratio] 0.9 {ratio} Normal [facility] Comment on above: Performed By: #### C MP ####[facility] Txjfrsgrms4449[address] [place], [place] [address]Dr. Farhat Leal ALP [Catalytic activity/Vol] 66 U/L Normal 46-116 [facility] Comment on above: Performed By: #### C MP ####[facility] Ojcvrdgplh0915[address] [place], [place] [address]Dr. Farhat Leal ALT [Catalytic activity/Vol] 15 U/L Critically low 16-63 [facility] Comment on above: Performed By: #### C MP ####[facility] Zfkxvweben4086[address] [place], [place] [address]Dr. Farhat Leal Anion gap [Moles/Vol] 11.1 mmol/L Normal [facility] Comment on above: Performed By: #### C MP ####[facility] Qmtroarmpw6984[address] [place], [place] [address]Dr. Farhat Leal AST [Catalytic activity/Vol] 14 U/L Critically low 15-37 [facility] Comment on above: Performed By: #### C MP ####[facility] Rleoywlbjt2034 [place] [address]Dr. Farhat Leal Bilirubin [Mass/Vol] 0.8 mg/dL Normal 0.2-1.0 [facility] Comment on above: Performed By: #### C MP ####[facility] Oljytyxgjc137[address] [place], [place] [address]Dr. Farhat Leal Calcium [Mass/Vol] 8.9 mg/dL Normal 8.5-10.1 [facility] Comment on above: Performed By: #### C MP ####[facility] Ivfqsyfqfo3190[address] [place], [place] [address]Dr. Farhat Leal Chloride [Moles/Vol] 101 mmol/L Normal 98-107 [facility] Comment on above: Performed By: #### C MP ####[facility] Cxqggsikpv0006[address] [place], [place] [address]Dr. Farhat Elvis CO2 [Moles/Vol] 28.2 mmol/L Normal 21.0-32.0 [facility] Comment on above: Performed By: #### C MP ####[facility] Vgkjrklncf7958[address] [place], [place] [address]Dr. Farhat Elvis Creatinine [Mass/Vol] 1.23 mg/dL Normal 0.70-1.30 [facility] Comment on above: Performed By: #### C MP ####[facility] Kcbhygrybc768[address] [place], [place] [address]Dr. Madelynlorri Elvis EGFR-AF KITTITIAN >60 Normal >=60 [facility] Comment on above: Performed By: #### C MP ####[facility] Frwyddwtjs2837[address] [place], [place] [address]Dr. Madelynlorri Elvis EGFR-NON AF KITT[place]IAN 57 mL/min/1.73m2 Critically low >=60 [facility] Comment on above: Performed By: #### C MP ####[facility] Irpqzcoudq5926[address] [place], [place] [address]Dr. Farhat Leal Globulin (S) [Mass/Vol] 3.2 g/dL Normal [facility] Comment on above: Performed By: #### C MP ####[facility] Npfphbigyz4197[address] [place], [place] [address]Dr. Farhat Elvis Glucose [Mass/Vol] 333 mg/dL Critically high 74-106 T [facility] Comment on above: Performed By: #### C MP ####[facility] Lrxuispacc6894 [place] [address]Dr. Farhat Elvis Potassium [Moles/Vol] 4.3 mmol/L Normal 3.5-5.1 [facility] Comment on above: Performed By: #### C MP ####[facility] Qvrqiqkzpk1215[address] [place], [place] [address]Dr. Farhat Leal Protein [Mass/Vol] 6.0 g/dL Critically low 6.4-8.2 Th [facility] Comment on above: Performed By: #### C MP ####[facility] Emygjutiwp2689[address] [place], [place] [address]Dr. Farhat Leal Sodium [Moles/Vol] 136 mmol/L Normal 136-145 [facility] Comment on above: Performed By: #### C MP ####[facility] Izorjlhxdb6949[address] [place], [place] [address]Dr. Farhat Leal Urea nitrogen [Mass/Vol] 58.0 mg/dL Critically high 7.0-18.0 [facility] Comment on above: Performed By: #### C MP ####[facility] Foltlfxmni7640[address] [place], [place] [address]Dr. Farhat Leal Urea nitrogen/Creatinine [Mass ratio] 47.2 mg/mg Normal [facility] Comment on above: Performed By: #### C MP ####[facility] Rztympjwlc8407[address] [place], [place] [address]Dr. Farhat Leal PROTIMEon 05-13-2022 INR Coag (PPP) [Relative time] 3.51 {INR} Normal [facility] Comment on above: Performed By: #### P T ####[facility] Oyfjchbdol[address] [place], [place] [address]Dr. Farhat Leal INR GUIDELINES SEE BELOW Normal [facility] Comment on above: Result Comment: MALINA RED INR: 2.0 - 3.0 CONDITIONS NOT LISTED BELOW 2.5 - 3.5 FOR PROSTHETIC HEART VALVE REPLACEMENT 2.5 - 3.5 RECURRENT THROMBOSIS Performed By: #### P T ####[facility] Aqiiryssjz5[address] [place] [address]DrSkylar Leal PT Coag (PPP) [Time] 34.7 s Critically high 9.0-11.6 [facility] Comment on above: Performed By: #### P T ####[facility] Ipbrpsokqs0994[address] [place], [place] [address]DrSkylar Leal FK506 (TACROLIMUS) WHOLE BLO ODon 05-11-2022 Tacrolimus (FK506), Blood 14.4 ng/mL Normal 2.0-20.0 [facility] Comment on above: Result Comment: Trou gh (immediately following transplant) 15.0 . Trough (steady state, 2 weeks or more after transplant): 3.0 - 8.0 . Performed by LC-MS/MS technology. Performed By: #### F K506T ####[facility] Limyvinsvd0074[address] [place], [place] [address]DrSkylar Leal CBC AUTO DIFFon 05-08-2022 BASO # 0.0 103/ul Normal 0.0-0.1 [facility] Comment on above: Performed By: #### C BC ####[facility] Clyfrqjemx4023[address] [place], [place] [address]DrSkylar Leal Basophils/100 WBC (Bld) 0.5 % Normal 0.2-2.0 [facility] Comment on above: Performed By: #### C BC ####[facility] Rryswzhpth[address] [place] [address]DrSkylar Leal EO # 0.2 103/ul Normal 0.0-0.7 [facility] Comment on above: Performed By: #### C BC ####[facility] Xtvdxntalh[address] [place], [place] [address]DrSkylar Leal Eosinophils/100 WBC (Bld) 2.9 % Normal 0.9-7.0 [facility] Comment on above: Performed By: #### C BC ####[facility] Xitsqexjdc9[address] [place], [place] [address]DrSkylar Leal Erythrocyte distribution width (RBC) [Ratio] 16.0 % Critically high 11.0-15.0 [facility] Comment on above: Performed By: #### C BC ####[facility] [address]fe[address] [place] [address]DrSkylar Leal Hematocrit (Bld) [Volume fraction] 35.7 % Critically low 42.0-54.0 [facility] Comment on above: Performed By: #### C BC ####[facility] Bforxgwzuj018[address] [place], [place] [address]DrSkylar Leal Hemoglobin (Bld) [Mass/Vol] 11.9 g/dL Critically low 14.0-18.0 [facility] Comment on above: Performed By: #### C BC ####[facility] Gxfanbrbid8740[address] [place], [place] [address]DrSkylar Leal IG # 0.03 10e3/ul Normal 0.00-0.03 [facility] Comment on above: Performed By: #### C BC ####[facility] Pzmpjqihhx159[address] [place], [place] [address]DrSkylar Leal IG % 0.5 % Normal 0.0-0.5 [facility] Comment on above: Performed By: #### C BC ####[facility] Rsmkwbbjds187[address] [place], [place] [address]DrSkylar Leal LYMPH # 2.4 103/ul Normal 1.2-3.8 [facility] Comment on above: Performed By: #### C BC ####[facility] Wnjfkhrfxq846438 [address] [place], [place] [address]DrSkylar Leal Lymphocytes/100 WBC (Bld) 37.8 % Normal 20.5-60.0 [facility] Comment on above: Performed By: #### C BC ####[facility] Aikigkcwkd7266[address] [place], [place] [address]DrSkylar Leal MANUAL DIFF REQ NO Normal [facility] Comment on above: Performed By: #### C BC ####[facility] Oasocilhzk2125[address] [place], [place] [address]DrSkylar Leal MCH (RBC) [Entitic mass] 30.4 pg Normal 25.9-34.0 [facility] Comment on above: Performed By: #### C BC ####[facility] Fcoritasiq8[address] [place] [address]Dr. Farhat Leal MCHC (RBC) [Mass/Vol] 33.3 g/dL Normal 29.9-35.2 [facility] Comment on above: Performed By: #### C BC ####[facility] Vqgxslwxno1369[address] [place], [place] [address]DrSkylar Leal MCV (RBC) [Entitic vol] 91.1 fL Normal 80.0-94.0 [facility] Comment on above: Performed By: #### C BC ####[facility] Aopwsmeygr624[address] [place], [place] [address]DrSkylar Leal MONO # 0.7 103/ul Normal 0.3-0.8 [facility] Comment on above: Performed By: #### C BC ####[facility] Pyruwywufp163838 [address] [place], [place] [address]Dr. Farhat Leal Monocytes/100 WBC (Bld) 11.1 % Normal 1.7-12.0 [facility] Comment on above: Performed By: #### C BC ####[facility] Okwxeknbmz906438 [address] [place], [place] [address]DrSkylar Leal NEUT # 2.9 103/ul Normal 1.4-6.5 [facility] Comment on above: Performed By: #### C BC ####[facility] Nixrdkyzpy293138 [address] [place], [place] [address]Dr. Farhat Leal Neutrophils/100 WBC (Bld) 47.2 % Normal 43.0-75.0 [facility] Comment on above: Performed By: #### C BC ####[facility] Gmwpcqsxhd899[address] [place], [place] [address]DrSkylar Leal Platelet mean volume (Bld) [Entitic vol] 11.0 fL Normal 9.5-13.5 [facility] Comment on above: Performed By: #### C BC ####[facility] Ervricxoqt364[address] [place], [place] [address]Dr. Farhat Leal PLT 191 103/ul Normal 150-450 [facility] Comment on above: Performed By: #### C BC ####[facility] Zxwfmxweel25[address] [place] [id number]. Farhat Leal RBC 3.92 106/ul Critically low 4.70-6.10 [facility] Comment on above: Performed By: #### C BC ####[facility] Iuoxwgsgnm8332 [place] [id number]. Farhat Leal WBC 6.2 103/ul Normal 4.0-11.0 [facility] Comment on above: Performed By: #### C BC ####[facility] Qotauscron16[address] [place] [address]Dr. Farhat Leal MAGNESIUMon 05-08-2022 Magnesium [Mass/Vol] 1.9 mg/dL Normal 1.8-2.4 [facility] Comment on above: Performed By: #### P HOS, MG ####[facility] Sjdxoxevwn[address] [place] [address]Dr. Farhat Leal PHOSPHORUSon 05-08-2022 Phosphate [Mass/Vol] 4.5 mg/dL Normal 2.6-4.7 [facility] Comment on above: Performed By: #### P HOS, MG ####[facility] Tnzzzvuhne3207[address] [place], [place] [address]Dr. Farhat Leal PROF 14(COMP METB)on 023 Albumin [Mass/Vol] 2.9 g/dL Critically low 3.4-5.0 [facility] Comment on above: Performed By: #### C MP ####[facility] Nkqzzrrzuo49[address] [place] [address]Dr. Farhat Leal Albumin/Globulin [Mass ratio] 0.9 {ratio} Normal [facility] Comment on above: Performed By: #### C MP ####[facility] Aikxymvixf4504 [place] [address]Dr. Farhat Leal ALP [Catalytic activity/Vol] 70 U/L Normal 46-116 [facility] Comment on above: Performed By: #### C MP ####[facility] Quifrefgzk40[address] [place] [phone]. Farhat Leal ALT [Catalytic activity/Vol] 13 U/L Critically low 16-63 [facility] Comment on above: Performed By: #### C MP ####[facility] Kqrbgxlhrf1928 [place] [address]Dr. Farhat Leal Anion gap [Moles/Vol] 14.6 mmol/L Normal [facility] Comment on above: Performed By: #### C MP ####[facility] Agxvbdqacp[address] [place] [address]Dr. Farhat Leal AST [Catalytic activity/Vol] 17 U/L Normal 15-37 [facility] Comment on above: Performed By: #### C MP ####[facility] Usrebirfgb2518[address] [place], [place] [address]Dr. Farhat Leal Bilirubin [Mass/Vol] 0.8 mg/dL Normal 0.2-1.0 [facility] Comment on above: Performed By: #### C MP ####[facility] Qjgjjzawnr7429[address] [place], [place] [address]Dr. Farhat Leal Calcium [Mass/Vol] 8.9 mg/dL Normal 8.5-10.1 [facility] Comment on above: Performed By: #### C MP ####[facility] Svmisdgzhd8211[address] [place], [place] [address]Dr. Farhat Leal Chloride [Moles/Vol] 102 mmol/L Normal 98-107 [facility] Comment on above: Performed By: #### C MP ####[facility] Qeugcexgen5484 [place] [address]Dr. Farhat Leal CO2 [Moles/Vol] 22.9 mmol/L Normal 21.0-32.0 [facility] Comment on above: Performed By: #### C MP ####[facility] Hvfilgmtyk703838 [address] [place], [place] [address]Dr. Farhat Leal Creatinine [Mass/Vol] 1.20 mg/dL Normal 0.70-1.30 [facility] Comment on above: Performed By: #### C MP ####[facility] Jhmxmwpxol5363 [place] [phone]. Farhat Leal EGFR-AF KITTITIAN >60 Normal >=60 [facility] Comment on above: Performed By: #### C MP ####[facility] Wtoupztpwx8572 [place] [address]Dr. Farhat Leal EGFR-NON AF KITTITIAN 59 mL/min/1.73m2 Critically low >=60 [facility] Comment on above: Performed By: #### C MP ####[facility] Xdyhtjcfwn8785 [place] [address]Dr. Farhat Leal Globulin (S) [Mass/Vol] 3.1 g/dL Normal [facility] Comment on above: Performed By: #### C MP ####[facility] Kbifsndrqx119[address] [place], [place] [address]Dr. Farhat Leal Glucose [Mass/Vol] 447 mg/dL Critically high 74-106 T [facility] Comment on above: Performed By: #### C MP ####[facility] Azjzofqqig3945[address] [place], [place] [address]Dr. Farhat Elvis Potassium [Moles/Vol] 4.5 mmol/L Normal 3.5-5.1 [facility] Comment on above: Performed By: #### C MP ####[facility] Ymnutamkbf958[address] [place], [place] [address]Dr. Farhat Elvis Protein [Mass/Vol] 6.0 g/dL Critically low 6.4-8.2 [facility] Comment on above: Performed By: #### C MP ####[facility] Qhwdegunte9117 [place] [address]Dr. Farhat Leal Sodium [Moles/Vol] 135 mmol/L Critically low 136-145 Th [facility] Comment on above: Performed By: #### C MP ####[facility] Uzoyezifal780138 [address] [place], [place] [address]Dr. Farhat Leal Urea nitrogen [Mass/Vol] 52.0 mg/dL Critically high 7.0-18.0 [facility] Comment on above: Performed By: #### C MP ####[facility] Czzivekcve2536[address] [place], [place] [address]DrSkylar Leal Urea nitrogen/Creatinine [Mass ratio] 43.3 mg/mg Normal [facility] Comment on above: Performed By: #### C MP ####[facility] Faqcqhrsst7083 [place] [address]DrSyklar Joshilorri Elvis PROTIMEon 05-06-2022 INR Coag (PPP) [Relative time] 2.25 {INR} Normal [facility] Comment on above: Performed By: #### P T ####[facility] Ozmnoqkkqq5009 [place] [address]DrSkylar Leal INR GUIDELINES SEE BELOW Normal [facility] Comment on above: Result Comment: MALINA RED INR: 2.0 - 3.0 CONDITIONS NOT LISTED BELOW 2.5 - 3.5 FOR PROSTHETIC HEART VALVE REPLACEMENT 2.5 - 3.5 RECURRENT THROMBOSIS Performed By: #### P T ####[facility] Oxyjjltxfk9596[address] [place], [place] [address]DrSkylar Leal PT Coag (PPP) [Time] 22.8 s Critically high 9.0-11.6 [facility] Comment on above: Performed By: #### P T ####[facility] Jqfqzgkvin6712[address] [place], [place] [address]DrSkylar Leal FK506 (TACROLIMUS) WHOLE BLO ODon 05-04-2022 Tacrolimus (FK506), Blood 10.4 ng/mL Normal 2.0-20.0 [facility] Comment on above: Result Comment: Trou gh (immediately following transplant) 15.0 . Trough (steady state, 2 weeks or more after transplant): 3.0 - 8.0 . Performed by LC-MS/MS technology. Performed By: #### F K506T ####[facility] Lexdhndnag32[address] [place] [address]DrSkylar Leal CBC AUTO DIFFon 05-01-2022 BASO # 0.1 103/ul Normal 0.0-0.1 [facility] Comment on above: Performed By: #### C BC ####[facility] Sjxipizhqt0740[address] [place], [place] [address]DrSkylar Leal Basophils/100 WBC (Bld) 0.7 % Normal 0.2-2.0 [facility] Comment on above: Performed By: #### C BC ####[facility] Ztucpwzdks812738 [address] [place], [place] [address]Dr. Farhat Leal EO # 0.2 103/ul Normal 0.0-0.7 [facility] Comment on above: Performed By: #### C BC ####[facility] Tnviqwdoiw3245[address] [place], [place] [address]Dr. Farhat Leal Eosinophils/100 WBC (Bld) 3.2 % Normal 0.9-7.0 [facility] Comment on above: Performed By: #### C BC ####[facility] Wlakbvhdvo3844[address] [place], [place] [address]Dr. Farhat Leal Erythrocyte distribution width (RBC) [Ratio] 16.4 % Critically high 11.0-15.0 [facility] Comment on above: Performed By: #### C BC ####[facility] Rsgeltwzhw8022[address] [place], [place] [address]Dr. Farhat Leal Hematocrit (Bld) [Volume fraction] 35.1 % Critically low 42.0-54.0 [facility] Comment on above: Performed By: #### C BC ####[facility] Lwgwxkdnrm6286[address] [place], [place] [address]Dr. Farhat Leal Hemoglobin (Bld) [Mass/Vol] 11.6 g/dL Critically low 14.0-18.0 [facility] Comment on above: Performed By: #### C BC ####[facility] Onezcmajou6709[address] [place], [place] [address]Dr. Farhat Leal IG # 0.03 10e3/ul Normal 0.00-0.03 [facility] Comment on above: Performed By: #### C BC ####[facility] Echhcwelwd7396[address] [place], [place] [address]Dr. Farhat Leal IG % 0.4 % Normal 0.0-0.5 [facility] Comment on above: Performed By: #### C BC ####[facility] Mlqkiuksea220[address] [place], [place] [address]Dr. Farhat Leal LYMPH # 2.4 103/ul Normal 1.2-3.8 [facility] Comment on above: Performed By: #### C BC ####[facility] Qrbzypxlxp4228 [place] [address]Dr. Farhat Leal Lymphocytes/100 WBC (Bld) 35.1 % Normal 20.5-60.0 [facility] Comment on above: Performed By: #### C BC ####[facility] Zmulbplcdj9542 [place] [address]DrSkylar Leal MANUAL DIFF REQ NO Normal [facility] Comment on above: Performed By: #### C BC ####[facility] Ohufirtpnb3256 [place] [address]Dr. Farhat Leal MCH (RBC) [Entitic mass] 29.4 pg Normal 25.9-34.0 [facility] Comment on above: Performed By: #### C BC ####[facility] Xoojhesugp911[address] [place], [place] [address]Dr. Farhat Leal MCHC (RBC) [Mass/Vol] 33.0 g/dL Normal 29.9-35.2 [facility] Comment on above: Performed By: #### C BC ####[facility] Qziuwquexy2250[address] [place], [place] [address]DrSkylar Leal MCV (RBC) [Entitic vol] 88.9 fL Normal 80.0-94.0 [facility] Comment on above: Performed By: #### C BC ####[facility] Tfwsslhnnz4429[address] [place], [place] [address]Dr. Farhat Leal MONO # 0.7 103/ul Normal 0.3-0.8 [facility] Comment on above: Performed By: #### C BC ####[facility] Heeoatbyfa977738 [address] [place], [place] [address]Dr. Farhat Leal Monocytes/100 WBC (Bld) 9.6 % Normal 1.7-12.0 [facility] Comment on above: Performed By: #### C BC ####[facility] Suuanakiph2955[address] [place], [place] [address]Dr. Farhat Leal NEUT # 3.5 103/ul Normal 1.4-6.5 [facility] Comment on above: Performed By: #### C BC ####[facility] Ugmldatkzp9094 [place] [address]Dr. Farhat Leal Neutrophils/100 WBC (Bld) 51.0 % Normal 43.0-75.0 [facility] Comment on above: Performed By: #### C BC ####[facility] Gxsnxhuomz4997 [place] [address]Dr. Farhat Leal Platelet mean volume (Bld) [Entitic vol] 10.3 fL Normal 9.5-13.5 [facility] Comment on above: Performed By: #### C BC ####[facility] Aouxdbvovw2544[address] [place], [place] [address]Dr. Farhat Leal PLT 184 103/ul Normal 150-450 [facility] Comment on above: Performed By: #### C BC ####[facility] Ccbdnganfj1188 [place] [address]Dr. Farhat Leal RBC 3.95 106/ul Critically low 4.70-6.10 [facility] Comment on above: Performed By: #### C BC ####[facility] Qwbolxepjm1794[address] [place], [place] [address]Dr. Farhat Leal WBC 7.0 103/ul Normal 4.0-11.0 [facility] Comment on above: Performed By: #### C BC ####[facility] Bimbdjgyec7926[address] [place], [place] [address]DrSkylar Leal PROF 14(COMP METB)on 023 Albumin [Mass/Vol] 2.6 g/dL Critically low 3.4-5.0 [facility] Comment on above: Performed By: #### C MP ####[facility] Ahjcqhstvg3845[address] [place], [place] [address]DrSkylar Leal Albumin/Globulin [Mass ratio] 0.9 {ratio} Normal [facility] Comment on above: Performed By: #### C MP ####[facility] Vtvrfntlwk3240 [place] [address]DrSkylar Leal ALP [Catalytic activity/Vol] 53 U/L Normal 46-116 [facility] Comment on above: Performed By: #### C MP ####[facility] Mvxbnsotdw2794 [place] [address]Dr. Farhat Leal ALT [Catalytic activity/Vol] 17 U/L Normal 16-63 [facility] Comment on above: Performed By: #### C MP ####[facility] Vytngmeyvo3717[address] [place], [place] [address]Dr. Farhat Leal Anion gap [Moles/Vol] 10.0 mmol/L Normal Th [facility] Comment on above: Performed By: #### C MP ####[facility] Tkwxglyzlw820[address] [place], [place] [address]Dr. Farhat Leal AST [Catalytic activity/Vol] 19 U/L Normal 15-37 [facility] Comment on above: Performed By: #### C MP ####[facility] Crotntooqx888[address] [place], [place] [address]Dr. Farhat Leal Bilirubin [Mass/Vol] 0.5 mg/dL Normal 0.2-1.0 [facility] Comment on above: Performed By: #### C MP ####[facility] Zuwvgermih4815[address] [place], [place] [address]Dr. Farhat Leal Calcium [Mass/Vol] 8.4 mg/dL Critically low 8.5-10.1 [facility] Comment on above: Performed By: #### C MP ####[facility] Bghovnkgmu5104[address] [place], [place] [address]Dr. Farhat Leal Chloride [Moles/Vol] 108 mmol/L Critically high 98-107 [facility] Comment on above: Performed By: #### C MP ####[facility] Dzcdmoagyx2189[address] [place], [place] [address]Dr. Farhat Leal CO2 [Moles/Vol] 26.9 mmol/L Normal 21.0-32.0 [facility] Comment on above: Performed By: #### C MP ####[facility] Ujdacmhlyl307[address] [place], [place] [address]Dr. Farhat Leal Creatinine [Mass/Vol] 1.20 mg/dL Normal 0.70-1.30 [facility] Comment on above: Performed By: #### C MP ####[facility] Gaqzmlttik11[address] [place] [id number]. Farhat Leal EGFR-AF KITT[place]IAN >60 Normal >=60 [facility] Comment on above: Performed By: #### C MP ####[facility] Oohjfjemuv66[address] [place] [id number]. Farhat Elvis EGFR-NON AF [place]ITT[place]IAN 59 mL/min/1.73m2 Critically low >=60 [facility] Comment on above: Performed By: #### C MP ####[facility] Zloltbsuih9887 [place] [phone]. Farhat Elvis Globulin (S) [Mass/Vol] 3.0 g/dL Normal [facility] Comment on above: Performed By: #### C MP ####[facility] Howokyiogk5279 [place] [address]Dr. Farhat Elvis Glucose [Mass/Vol] 213 mg/dL Critically high 74-106 [facility] Comment on above: Performed By: #### C MP ####[facility] Ocduzufgsa2484 [place] [phone]. Farhat Elvis Potassium [Moles/Vol] 3.9 mmol/L Normal 3.5-5.1 [facility] Comment on above: Performed By: #### C MP ####[facility] Oipsvovlop7508 [place] [id number]. Farhat Elvis Protein [Mass/Vol] 5.6 g/dL Critically low 6.4-8.2 [facility] Comment on above: Performed By: #### C MP ####[facility] Tdeaihrgsr5269 [place] [id number]. Farhat Leal Sodium [Moles/Vol] 141 mmol/L Normal 136-145 [facility] Comment on above: Performed By: #### C MP ####[facility] Evtlebrltr1567 [place] [phone]. Farhat Elvis Urea nitrogen [Mass/Vol] 61.0 mg/dL Critically high 7.0-18.0 [facility] Comment on above: Performed By: #### C MP ####[facility] Tfidadoaxd0597 [place] [address]Dr. Farhat Leal Urea nitrogen/Creatinine [Mass ratio] 50.8 mg/mg Normal [facility] Comment on above: Performed By: #### C MP ####[facility] Juyyjbcyrd518[address] [place], [place] [address]Dr. Farhat Leal FK506 (TACROLIMUS) WHOLE BLO ODon 04-27-2022 Tacrolimus (FK506), Blood 16.5 ng/mL Normal 2.0-20.0 [facility] Comment on above: Result Comment: Trou gh (immediately following transplant) 15.0 . Trough (steady state, 2 weeks or more after transplant): 3.0 - 8.0 . Performed by LC-MS/MS technology. Performed By: #### F K506T ####[facility] Mtfcmzjnrb4084[address] [place], [place] [address]DrSkylar Farhat Elvis CBC AUTO DIFFon 04-24-2022 BASO # 0.0 103/ul Normal 0.0-0.1 [facility] Comment on above: Performed By: #### C BC ####[facility] Ubsofayizu16[address] [place], [place] [address]Dr. Madelynlorri Leal Basophils/100 WBC (Bld) 0.5 % Normal 0.2-2.0 [facility] Comment on above: Performed By: #### C BC ####[facility] Vejrznxzya2701[address] [place], [place] [address]DrSkylar Farhat Elvis EO # 0.2 103/ul Normal 0.0-0.7 [facility] Comment on above: Performed By: #### C BC ####[facility] Njmrsgcqum2464[address] [place], [place] [address]Dr. Farhat Leal Eosinophils/100 WBC (Bld) 3.1 % Normal 0.9-7.0 [facility] Comment on above: Performed By: #### C BC ####[facility] Nkeytxdjvi89[address] [place], [place] [address]Dr. Farhat Leal Erythrocyte distribution width (RBC) [Ratio] 16.3 % Critically high 11.0-15.0 [facility] Comment on above: Performed By: #### C BC ####[facility] Yqtpekwlfs6545 [place] [address]DrSkylar Leal Hematocrit (Bld) [Volume fraction] 34.0 % Critically low 42.0-54.0 [facility] Comment on above: Performed By: #### C BC ####[facility] Srnjjscqet7221 [place] [address]DrSkylar Leal Hemoglobin (Bld) [Mass/Vol] 11.6 g/dL Critically low 14.0-18.0 [facility] Comment on above: Performed By: #### C BC ####[facility] Uaexazymil010[address] [place], [place] [address]DrSkylar Leal IG # 0.02 10e3/ul Normal 0.00-0.03 [facility] Comment on above: Performed By: #### C BC ####[facility] Rphiuzudqs6609[address] [place], [place] [address]DrSkylar Leal IG % 0.4 % Normal 0.0-0.5 [facility] Comment on above: Performed By: #### C BC ####[facility] Lthnncdyho7279[address] [place], [place] [address]DrSkylar Leal LYMPH # 2.2 103/ul Normal 1.2-3.8 [facility] Comment on above: Performed By: #### C BC ####[facility] Xdwfczdwff8720[address] [place], [place] [address]DrSkylar Leal Lymphocytes/100 WBC (Bld) 38.8 % Normal 20.5-60.0 [facility] Comment on above: Performed By: #### C BC ####[facility] Oqkewkzbpi766[address] [place], [place] [address]DrSkylar Leal MANUAL DIFF REQ NO Normal [facility] Comment on above: Performed By: #### C BC ####[facility] Havnoeffin1866 [place] [address]DrSkylar Leal MCH (RBC) [Entitic mass] 30.1 pg Normal 25.9-34.0 [facility] Comment on above: Performed By: #### C BC ####[facility] Tlpbsesmfu2183 [place] [address]Dr. Farhat Leal MCHC (RBC) [Mass/Vol] 34.1 g/dL Normal 29.9-35.2 [facility] Comment on above: Performed By: #### C BC ####[facility] Wphvuynrgf9086 [place] [address]DrSkylar Leal MCV (RBC) [Entitic vol] 88.1 fL Normal 80.0-94.0 [facility] Comment on above: Performed By: #### C BC ####[facility] Obosmfwaky8497[address] [place], [place] [address]DrSkylar Leal MONO # 0.6 103/ul Normal 0.3-0.8 [facility] Comment on above: Performed By: #### C BC ####[facility] Yfwtuhbjce237[address] [place], [place] [address]Dr. Farhat Leal Monocytes/100 WBC (Bld) 10.8 % Normal 1.7-12.0 [facility] Comment on above: Performed By: #### C BC ####[facility] Roeckkwmji529[address] [place], [place] [address]DrSkylar Leal NEUT # 2.6 103/ul Normal 1.4-6.5 [facility] Comment on above: Performed By: #### C BC ####[facility] Pweorclyfe7184[address] [place], [place] [address]Dr. Farhat Leal Neutrophils/100 WBC (Bld) 46.4 % Normal 43.0-75.0 [facility] Comment on above: Performed By: #### C BC ####[facility] Lzfrrhrlnc05[address] [place], [place] [address]DrSkylar Leal Platelet mean volume (Bld) [Entitic vol] 10.9 fL Normal 9.5-13.5 [facility] Comment on above: Performed By: #### C BC ####[facility] Rrpvxorqur6[address] [place], [place] [address]Dr. Farhat Leal PLT 159 103/ul Normal 150-450 [facility] Comment on above: Performed By: #### C BC ####[facility] Haloxyvgjm1885 [place] [address]Dr. Farhat Leal RBC 3.86 106/ul Critically low 4.70-6.10 [facility] Comment on above: Performed By: #### C BC ####[facility] Uczqaqwnuh6[address] [place] [address]Dr. Farhat Leal WBC 5.6 103/ul Normal 4.0-11.0 [facility] Comment on above: Performed By: #### C BC ####[facility] [address] [place] [address]Dr. Farhat Leal PROTIMEon 04-24-2022 INR Coag (PPP) [Relative time] 3.23 {INR} Normal [facility] Comment on above: Performed By: #### P T ####[facility] [address] [place] [address]Dr. Farhat Leal INR GUIDELINES SEE BELOW Normal [facility] Comment on above: Result Comment: MALINA RED INR: 2.0 - 3.0 CONDITIONS NOT LISTED BELOW 2.5 - 3.5 FOR PROSTHETIC HEART VALVE REPLACEMENT 2.5 - 3.5 RECURRENT THROMBOSIS Performed By: #### P T ####[facility] [address] [place] [address]Dr. Farhat Leal PT Coag (PPP) [Time] 32.0 s Critically high 9.0-11.6 [facility] Comment on above: Performed By: #### P T ####[facility] [address] [place] [place] [address]Dr. Farhat Leal FK506 (TACROLIMUS) WHOLE BLO ODon 04-20-2022 Tacrolimus (FK506), Blood 13.9 ng/mL Normal 2.0-20.0 [facility] Comment on above: Result Comment: Trou gh (immediately following transplant) 15.0 . Trough (steady state, 2 weeks or more after transplant): 3.0 - 8.0 . Performed by LC-MS/MS technology. Performed By: #### F K506T ####[facility] [address] [place] [id number]. Farhat Leal CBC AUTO DIFFon 04-17-2022 BASO # 0.0 103/ul Normal 0.0-0.1 [facility] Comment on above: Performed By: #### C BC ####[facility] [address] [place], [place] [address]Dr. Madelynlorri Leal Basophils/100 WBC (Bld) 0.4 % Normal 0.2-2.0 [facility] Comment on above: Performed By: #### C BC ####[facility] [address] [place], [place] [address]Dr. Farhat Elvis EO # 0.2 103/ul Normal 0.0-0.7 [facility] Comment on above: Performed By: #### C BC ####[facility] Kl[address]ry[address] [place], [place] [address]Dr. Madelynlorri Leal Eosinophils/100 WBC (Bld) 2.8 % Normal 0.9-7.0 [facility] Comment on above: Performed By: #### C BC ####[facility] Xcd[address] [place], [place] [address]Dr. Farhat Leal Erythrocyte distribution width (RBC) [Ratio] 16.1 % Critically high 11.0-15.0 [facility] Comment on above: Performed By: #### C BC ####[facility] [address]vsw[address] [place], [place] [address]Dr. Farhat Leal Hematocrit (Bld) [Volume fraction] 35.7 % Critically low 42.0-54.0 [facility] Comment on above: Performed By: #### C BC ####[facility] [address]hr[address] [place], [place] [address]Dr. Farhat Leal Hemoglobin (Bld) [Mass/Vol] 12.2 g/dL Critically low 14.0-18.0 [facility] Comment on above: Performed By: #### C BC ####[facility] [address]us[address]uz[address] [place], [place] [address]Dr. Farhat Leal IG # 0.03 10e3/ul Normal 0.00-0.03 [facility] Comment on above: Performed By: #### C BC ####[facility] [address] [place] [address]Dr. Madelynlorri Leal IG % 0.4 % Normal 0.0-0.5 [facility] Comment on above: Performed By: #### C BC ####[facility] [address]sq[address] [place] [address]Dr. Farhat Elvis LYMPH # 2.4 103/ul Normal 1.2-3.8 [facility] Comment on above: Performed By: #### C BC ####[facility] [address] [place], [place] [address]Dr. Madelynlorri Leal Lymphocytes/100 WBC (Bld) 36.1 % Normal 20.5-60.0 [facility] Comment on above: Performed By: #### C BC ####[facility] [address]lyrsoeqyl[address] [place], [place] [address]Dr. Farhat Leal MANUAL DIFF REQ NO Normal [facility] Comment on above: Performed By: #### C BC ####[facility] [address] [place] [address]Dr. Farhat Elvis MCH (RBC) [Entitic mass] 30.3 pg Normal 25.9-34.0 [facility] Comment on above: Performed By: #### C BC ####[facility] [address] [place] [address]Dr. Farhat Elvis MCHC (RBC) [Mass/Vol] 34.2 g/dL Normal 29.9-35.2 [facility] Comment on above: Performed By: #### C BC ####[facility] S[address]bozxetq[address] [place], [place] [address]Dr. Farhat Elvis MCV (RBC) [Entitic vol] 88.6 fL Normal 80.0-94.0 [facility] Comment on above: Performed By: #### C BC ####[facility] [address]brzyualbx[address] [place], [place] [address]Dr. Farhat Leal MONO # 0.7 103/ul Normal 0.3-0.8 [facility] Comment on above: Performed By: #### C BC ####[facility] [address]zw[address] [place] [id number]. Farhat Leal Monocytes/100 WBC (Bld) 10.1 % Normal 1.7-12.0 [facility] Comment on above: Performed By: #### C BC ####[facility] [address] [place] [phone]. Farhat Leal NEUT # 3.4 103/ul Normal 1.4-6.5 [facility] Comment on above: Performed By: #### C BC ####[facility] [address]ro[address]wxd[address] [place] [phone]. Farhat Leal Neutrophils/100 WBC (Bld) 50.2 % Normal 43.0-75.0 [facility] Comment on above: Performed By: #### C BC ####[facility] [address]qrhdw[address] [place] [phone]. Madelynlorri Elvis Platelet mean volume (Bld) [Entitic vol] 11.8 fL Normal 9.5-13.5 [facility] Comment on above: Performed By: #### C BC ####[facility] [address]xj[address] [place] [phone]. Farhat Elvis PLT 193 103/ul Normal 150-450 [facility] Comment on above: Performed By: #### C BC ####[facility] [address] [place] [phone]. Madelynlorri Leal RBC 4.03 106/ul Critically low 4.70-6.10 [facility] Comment on above: Performed By: #### C BC ####[facility] [address] [place] [phone]. Farhat Leal WBC 6.8 103/ul Normal 4.0-11.0 [facility] Comment on above: Performed By: #### C BC ####[facility] [address] [place] [address]Dr. Farhat Leal PROF 14(COMP METB)on 023 Albumin [Mass/Vol] 2.9 g/dL Critically low 3.4-5.0 [facility] Comment on above: Performed By: #### C MP ####[facility] [address]ulfip[address] [place] [address]Dr. Farhat Elvis Albumin/Globulin [Mass ratio] 0.9 {ratio} Normal [facility] Comment on above: Performed By: #### C MP ####[facility] Dl[address]dg[address] [place] [address]Dr. Farhat Leal ALP [Catalytic activity/Vol] 67 U/L Normal 46-116 [facility] Comment on above: Performed By: #### C MP ####[facility] [address]ry[address] [place], [place] [address]Dr. Farhat Leal ALT [Catalytic activity/Vol] 15 U/L Critically low 16-63 [facility] Comment on above: Performed By: #### C MP ####[facility] Xejtseenxh[address] [place], [place] [address]Dr. Farhat Leal Anion gap [Moles/Vol] 10.8 mmol/L Normal [facility] Comment on above: Performed By: #### C MP ####[facility] Pfeybsxrlg[address] [place], [place] [address]Dr. Farhat Leal AST [Catalytic activity/Vol] 23 U/L Normal 15-37 [facility] Comment on above: Performed By: #### C MP ####[facility] Aenynpf[address]ub[address] [place], [place] [address]Dr. Farhat Leal Bilirubin [Mass/Vol] 0.6 mg/dL Normal 0.2-1.0 [facility] Comment on above: Performed By: #### C MP ####[facility] Yiekqcrimo[address] [place], [place] [address]Dr. Farhat Leal Calcium [Mass/Vol] 8.7 mg/dL Normal 8.5-10.1 [facility] Comment on above: Performed By: #### C MP ####[facility] Qrdtpwhobl[address] [place], [place] [address]Dr. Farhat Leal Chloride [Moles/Vol] 105 mmol/L Normal 98-107 [facility] Comment on above: Performed By: #### C MP ####[facility] [address]tnqbzx[address] [place] [phone]. Farhat Leal CO2 [Moles/Vol] 29.5 mmol/L Normal 21.0-32.0 [facility] Comment on above: Performed By: #### C MP ####[facility] [address]ijo[address] [place] [phone]. Farhat Leal Creatinine [Mass/Vol] 1.37 mg/dL Critically high 0.70-1.30 [facility] Comment on above: Performed By: #### C MP ####[facility] [address] [place] [phone]. Farhat Leal EGFR-AF KITTITIAN >60 Normal >=60 [facility] Comment on above: Performed By: #### C MP ####[facility] [address] [place] [address]Dr. Farhat Elvis EGFR-NON AF KITTITIAN 50 mL/min/1.73m2 Critically low >=60 [facility] Comment on above: Performed By: #### C MP ####[facility] Mt[address] [place] [phone]. Farhat Leal Globulin (S) [Mass/Vol] 3.1 g/dL Normal [facility] Comment on above: Performed By: #### C MP ####[facility] [address]wa[address] [place] [address]Dr. Farhat Leal Glucose [Mass/Vol] 203 mg/dL Critically high 74-106 [facility] Comment on above: Performed By: #### C MP ####[facility] [address]az[address] [place] [phone]. Farhat Leal Potassium [Moles/Vol] 4.3 mmol/L Normal 3.5-5.1 [facility] Comment on above: Performed By: #### C MP ####[facility] [address]jurpc[address] [place] [address]Dr. Farhat Leal Protein [Mass/Vol] 6.0 g/dL Critically low 6.4-8.2 [facility] Comment on above: Performed By: #### C MP ####[facility] [address]xp[address] [place] [phone]. Farhat Leal Sodium [Moles/Vol] 141 mmol/L Normal 136-145 [facility] Comment on above: Performed By: #### C MP ####[facility] [address]px[address] [place] [phone]. Farhat Leal Urea nitrogen [Mass/Vol] 65.0 mg/dL Critically high 7.0-18.0 [facility] Comment on above: Performed By: #### C MP ####[facility] [address]otcov[address] [place] [address]Dr. Farhat Leal Urea nitrogen/Creatinine [Mass ratio] 47.4 mg/mg Normal [facility] Comment on above: Performed By: #### C MP ####[facility] [address] [place] [address]Dr. Farhat Leal PROTIMEon 04-15-2022 INR Coag (PPP) [Relative time] 3.88 {INR} Normal [facility] Comment on above: Performed By: #### P T ####[facility] Hbrymtuhjp[address] [place] [address]Dr. Farhat Leal INR GUIDELINES SEE BELOW Normal [facility] Comment on above: Result Comment: MALINA RED INR: 2.0 - 3.0 CONDITIONS NOT LISTED BELOW 2.5 - 3.5 FOR PROSTHETIC HEART VALVE REPLACEMENT 2.5 - 3.5 RECURRENT THROMBOSIS Performed By: #### P T ####[facility] Csfs[address]ogqc[address] [place], [place] [address]Dr. Farhat Leal PT Coag (PPP) [Time] 38.1 s Critically high 9.0-11.6 [facility] Comment on above: Performed By: #### P T ####[facility] Gpex[address] [place], [place] [address]Dr. Farhat Leal Glucose Glucometer (BldC) [M ass/Vol]Ordered [...] Commemt1 Glu2: Cleaned Meter Normal [facility] Comment on above: Result Comment: PERF ORMED BY: [facility] [address] PATHOLOGIST [employer] JOSE F ELLIOTT M.D. Performed By: #### G LULS #### Point of Care testing , Glucose [Mass/Vol] 162 mg/dL Normal [facility] Comment on above: Result Comment: Industry Glucose Reference Range is dependent on time and content of last meal. Glucose of more than 200 mg/dL in a nonstressed, ambulatory subject supports the diagnosis of Diabetes Mellitus. Performed By: #### G LURICO #### Point of Care testing , No Panel InformationOrdered By: Sadia Aguilar on 04-14-2022 Bedside Glucose Comment Glu2: cleaned meter [facility] MAGNESIUMon 04-13-2022 Magnesium [Mass/Vol] 1.7 mg/dL Critically low 1.8-2.4 [facility] Comment on above: Performed By: #### M HENRI Manzo ####[facility] [address] [place] [address]Dr. Farhat Leal PHOSPHORUSon 04-13-2022 Phosphate [Mass/Vol] 4.8 mg/dL Critically high 2.6-4.7 [facility] Comment on above: Performed By: #### M HENRI Manzo ####[facility] [address] [place] [address]Dr. Farhat Leal PROTIMEon 04-13-2022 INR Coag (PPP) [Relative time] 3.16 {INR} Normal [facility] Comment on above: Performed By: #### P T ####[facility] [address]ulkf[address] [place] [address]Dr. Farhat Leal INR GUIDELINES SEE BELOW Normal [facility] Comment on above: Result Comment: MALINA RED INR: 2.0 - 3.0 CONDITIONS NOT LISTED BELOW 2.5 - 3.5 FOR PROSTHETIC HEART VALVE REPLACEMENT 2.5 - 3.5 RECURRENT THROMBOSIS Performed By: #### P T ####[facility] [address]chm[address] [place] [address]Dr. Farhat Leal PT Coag (PPP) [Time] 31.4 s Critically high 9.0-11.6 [facility] Comment on above: Performed By: #### P T ####[facility] [address] [place] [address]Dr. Farhat Leal MAGNESIUMon 03-11-2022 Magnesium [Mass/Vol] 1.6 mg/dL Critically low 1.8-2.4 [facility] Comment on above: Performed By: #### M HENRI Manzo ####[facility] [address] [place] [address]Dr. Farhat Leal PHOSPHORUSon 03-11-2022 Phosphate [Mass/Vol] 5.3 mg/dL Critically high 2.6-4.7 [facility] Comment on above: Performed By: #### M ANA ManzoS ####[facility] [address]uecl[address] [place], [place] [address]Dr. Farhat Leal CNOVon 02-26-2022 CNOV Office Visit (HONEY ) ALEX ALMONTE ([id number]) 1945 M TRN Date Time Provider Department 02/26/22 3:00 PM HINA PETERSON During your visit today, we recorded the following information about you: Temperature Pulse Blood pressure 96.6 degrees 75/minute 88/75 Hina Peterson MD, MD 02/26/2022 4:31 PM Signed [facility] [place] DEPARTMENT OF VASCULAR SURGERY OUTPATIENT VISIT DATE [...] his postop visit. He has been in alf since then and has been recovering from his acute on chronic congestive heart failure. His wound has largely been healing without any issues and the maxwell and sutures were removed at the nursing facility. He comes here with a lateral wound eschar. He denies any fevers, chills, or any drainage. He is on anticoagulation. 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 Patient on mycophenolate mofetil , cellcept and prednisone Mixed hyperlipidemia due to type 2 diabetes mellitus ([facility]) 11/29/2021 Osteomyelitis ([facility]) 11/29/2021 Paroxysmal atrial fibrillation ([facility]) Renal transplant, status post SA node dysfunction ([facility]) s/p pacemaker Type 2 diabetes mellitus with diabetic neuropathy, with long-term current use of insulin ([facility]) 02/24/2002 PAST SURGICAL HISTORY Procedure Laterality Date [...] by mouth daily with lunch. Magic Cup [place] with lunch aspirin, enteric coated (ASPIRIN, ENTERIC COATED) 81 mg EC tablet Take 1 tablet by (more content not included)... Normal [facility] Walter PROTIMEon 02-25-2022 INR Coag (PPP) [Relative time] 1.31 {INR} Normal [facility] Comment on above: Performed By: #### P T ####[facility] [address] [place] [id number]. Farhat Leal INR GUIDELINES SEE BELOW Normal [facility] Comment on above: Result Comment: MALINA RED INR: 2.0 - 3.0 CONDITIONS NOT LISTED BELOW 2.5 - 3.5 FOR PROSTHETIC HEART VALVE REPLACEMENT 2.5 - 3.5 RECURRENT THROMBOSIS Performed By: #### P T ####[facility] [address] [place] [address]DrSkylar Leal PT Coag (PPP) [Time] 13.7 s Critically high 9.0-11.6 [facility] Comment on above: Performed By: #### P T ####[facility] [address] [place] [address]DrSkylar Leal CNPNon 02-19-2022 CNPN Telephone (TXCTGL) ALEX ALMONTE ([id number]) 1945 M TRN Date Time Provider Department 02/19/22 AUGUSTA MEDRANO TXCTGL During your visit today, we recorded the following information about you: Augusta Medrano RN 02/19/2022 11:16 AM Signed Alex Almonte's [facility], called regarding elevated tacrolimus level (23.9). Spoke [...] by mouth daily with lunch. 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 [[id number]] 07/30/2006 VITAMIN D DEFICIENCY NOS [E55.9] 09/07/2008 [...] diabetes mellitus with diabetic peripher*11/29/2021 Atherosclerosis of [place] artery of extremity w*11/29/2021 Malnutrition of moderate degree (HCC) [E44.0] 12/01/2021 Dermatitis associated with moisture [L30.8] 12/04/2021 Encounter Status:Closed by AUGUSTA MEDRANO on 02/19/22 [facility] Sonya 02-18-2022 CNPN Telephone (PODCCP) ALEX ALMONTE ([id number]) 1945 M [facility] Date Time Provider Department 02/18/22 DEVON MOREIRA PODCCP During your visit today, we recorded the following information about you: Yumiko Camelia 02/18/2022 3:16 PM Signed Reason for call: Mr. Almonte would like to request a sooner appointment with Dr. Peterson than 04/13/2022. Contact Name (if not the patient) Alex's nurse Home and cell number(Ask for Alex's nurse) [phone] Diagnosis 4 mo f/u wound check Best [...] by mouth daily with lunch. 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 DIABETES UNCOMPL ADULT-UNCONTRLLED [[id number]] 02/24/2002 KIDNEY TRANSPLANT STATUS [Z94.0] 09/07/2003 PROPHYLACTIC IMMUNOTHERAPY [Z29.8] 07/30/2006 CARE HOME STEROIDS [[id number]] 07/30/2006 VITAMIN D DEFICIENCY NOS [E55.9] 09/07/2008 [...] diabetes mellitus with diabetic peripher*11/29/2021 Atherosclerosis of [place] artery of extremity w*11/29/2021 Malnutrition of moderate degree (HCC) [E44.0] 12/01/2021 Dermatitis associated with moisture [L30.8] 12/04/2021 Encounter Status:Closed by CHEASTY (more content not included)... Normal [facility] CNOVon 02-05-2022 CNOV Office Visit (TXCTGL ) ALEX ALMONTE ([id number]) 1945 M TRN Date Time Provider Department 02/05/22 8:20 AM [facility]NEY TXP [facility]INIC TXCTGL During your visit today, we recorded the following information about you: Temperature Pulse Blood pressure 96.7 degrees 79/minute 72/42 Asia Pike MD 02/05/2022 9:38 AM Signed [facility] [place] Transplant Follow up Portions of this note were copied from the last encounter. Changes were made to appropriately reflect updated history and interval events, physical exam, data review, and medical decision making. Patient presents for renal tx follow up care - Hospital admission / discharge in November 2021 for osteomyelitis HPI: Zevcasey Black [place]ick is a 76 yr old male, s/p [...] and snacks patient declined. Indra scale at [facility]: 166.2 lbs per patient. Bed sore on coccyx causing discomfort. Being changed regularly at SNF- reported to be smaller around but still as deep. Patient not very up to date with medications. Patient brought paperwork from [employer] with all medications being received. Patient unsure if they have been drawing labs regularly. Last Tac from 01/19: 12.9 and K 5.9. In need of current labs. Lab orders will be sent with patient and follows as below: Kidney and Pancreas Transplant Standing Lab Orders [address] [facility] [address] [place], [place] [address] February 05, 2022 Alex Almonte 1945 [id number] STANDARD TESTING: Diagnosis Codes: Z94.0 Kidney Transplant [...] AT YOUR LABORATORY FACILITY AND FAX TO [phone]. PLEASE CALL [phone]. Provider: Dr. Pike Current Outpatient Medications Medication [...] Take 237 (more content not included)... Normal [facility] PROTEIN CREATININE RATIOon 1 04-08-2021 Protein/Creatinine (U) [Mass ratio] 0.10 mg/mg <0.15 mg/mg [facility] PROTIMEon 02-05-2022 INR Coag (PPP) [Relative time] 2.90 {INR} Normal [facility] Comment on above: Performed By: #### P T ####[facility] [address] [place] [id number]. Farhat Leal INR GUIDELINES SEE BELOW Normal [facility] Comment on above: Result Comment: MALINA RED INR: 2.0 - 3.0 CONDITIONS NOT LISTED BELOW 2.5 - 3.5 FOR PROSTHETIC HEART VALVE REPLACEMENT 2.5 - 3.5 RECURRENT THROMBOSIS Performed By: #### P T ####[facility] [address] [place] [phone]. Farhat Leal PT Coag (PPP) [Time] 29.2 s Critically high 9.0-11.6 [facility] Comment on above: Performed By: #### P T ####[facility] [address] [place] [address]Dr. Farhat Leal Prot/Creat Uron 02-05-2022 Protein/Creatinine (U) [Mass ratio] 0.10 mg/mg Normal <0.15 [facility] Comment on above: Order Comment: Speci men Type: URINE SPECIMENOrdering Facility: [facility] Address: [address] [place] [address] Result Comment: Adul t Proteinuria Categories: <0.15 mg/mg is considered normal to mildly increased 0.15 - 0.50 mg/mg is considered moderately increased >0.50 mg/mg is considered severely increased KDIGO. (2013). KDIGO 2012 Clinical Practice Guideline for the Evaluation and Management of Chronic Kidney Disease. Official Journal of the International Society of Nephrology, 3(1), 1-150. Performed By: #### 2 890-2 ####[facility] [id number] [place] [address] [place] Protein/Creatinine (U) [Mass ratio]on 02-05-2022 Creatinine (U) [Mass/Vol] 86.9 mg/dL 20.0 - 300.0 mg/dL [facility] Protein (U) [Mass/Vol] 9 mg/dL 0 - 20 mg/dL [facility] Creatinine (U) [Mass/Vol] 86.9 mg/dL Normal 20.0-300.0 [facility] Comment on above: Order Comment: Speci men Type: URINE SPECIMENOrdering Facility: [facility] Address: [address] Performed By: #### 2 890-2 ####[facility] [id number] [place] [address] [place] Protein (U) [Mass/Vol] 9 mg/dL Normal 0-20 [facility] Comment on above: Order Comment: Speci men Type: URINE SPECIMENOrdering Facility: [facility] Address: [address] [place] [address] Performed By: #### 2 890-2 ####[facility] [id number] [place] [address] [place] URINALYSIS, DIPSTICK ONLYon 02-05-2022 Bilirubin Ql (U) Negative Normal Negative [facility] Comment on above: Order Comment: Speci men Type: URINE SPECIMEN [facility] Address: [address] Performed By: #### U A #### [facility] CLIA [id number] [address] [place] [address] [place] Clarity (Unsp spec) Clear Normal Clear [facility] Comment on above: Order Comment: Speci men Type: URINE SPECIMEN [facility] Address: [address] Performed By: #### U A #### [facility] CLIA [id number] [address] [place] [address] [place] Color (U) Yellow Normal Yellow [facility] Comment on above: Order Comment: Speci men Type: URINE SPECIMEN [facility] Address: [address] Performed By: #### U A #### [facility] CLIA [id number] [address] [address] [place] Glucose Test strip (U) [Mass/Vol] 3+ Abnormal Trace, Negative [facility] Comment on above: Order Comment: Speci men Type: URINE SPECIMEN Ordering Facility: [facility] Address: [address] [address] Performed By: #### U A #### [facility] CLIA [id number] [address] STATES OF [facility] Hemoglobin Ql (U) Negative Normal Negative, Trace [facility] Comment on above: Order Comment: Speci men Type: URINE SPECIMEN Ordering Facility: [facility] Address: [address] [address] Performed By: #### U A #### [facility] CLIA [id number] [address] [place] Ketones Ql (U) Trace Normal Negative, Trace [facility] Comment on above: Order Comment: Speci men Type: URINE SPECIMEN Ordering Facility: [facility] Address: [address] [address] Performed By: #### U A #### [facility] CLIA [id number] [address] Leukocyte esterase Test strip Ql (U) Negative Normal Negative, 25 Loraine/mL [facility] Comment on above: Order Comment: Speci men Type: URINE SPECIMEN Ordering Facility: [facility] Address: [address] Performed By: #### U A #### [facility] CLIA [id number] [address]00 [place] [address] [place] Nitrite Ql (U) Negative Normal Negative [facility] Comment on above: Order Comment: Speci men Type: URINE SPECIMEN Ordering Facility: [facility] Address: [address] Performed By: #### U A #### [facility] CLIA [id number] [facility] [place] [address] [place] pH (U) 5.5 [pH] Normal 5.0-8.0 [facility] Comment on above: Order Comment: Speci men Type: URINE SPECIMEN Ordering Facility: [facility] Address: [address] [place] [address] Performed By: #### U A #### [facility] CLIA [id number] [address] [place] [address] [place] Protein (U) [Mass/Vol] Negative Normal Trace , Negative [facility] Comment on above: Order Comment: Speci men Type: URINE SPECIMEN Ordering Facility: [facility] Address: [address] [place] [address] Performed By: #### U A #### [facility] [place] [id number] [address] [place] [address] [place] Specific gravity (U) [Rel density] 1.014 Normal 1.005-1.030 [facility] Comment on above: Order Comment: Speci men Type: URINE SPECIMEN Ordering Facility: [facility] Address: [address] [place] [address] Performed By: #### U A #### [facility] [place] [id number] [address] [place] [address] [place] Urobilinogen Ql (U) 1+ Abnormal Negative [facility] Comment on above: Order Comment: Speci men Type: URINE SPECIMEN Ordering Facility: [facility] Address: [address] [place] [address] Performed By: #### U A #### [facility] [place] [id number] [address] [place] [address] [place] Bilirubin Ql (U) Negative Negative [facility] Clarity (Unsp spec) Clear Clear [facility] Color (U) Yellow Yellow [facility] Glucose Test strip (U) [Mass/Vol] 3+ Abnormal Trace, Negative [facility] Hemoglobin Ql (U) Negative Negative, Trace [facility] Ketones Ql (U) Trace Negative, Trace [facility] Leukocyte esterase Test strip Ql (U) Negative Negative, 25 Loraine/mL [facility] Nitrite Ql (U) Negative Negative [facility] pH (U) 5.5 [pH] 5.0 - 8.0 [facility] Protein (U) [Mass/Vol] Negative Trace , Negative [facility] Specific gravity (U) [Rel density] 1.014 1.005 - 1.030 [facility] Urobilinogen Ql (U) 1+ Abnormal Negative [facility] FK506 (TACROLIMUS) WHOLE BLO ODon 01-29-2022 Tacrolimus (FK506), Blood 11.1 ng/mL Normal 2.0-20.0 [facility] Comment on above: Result Comment: Trou gh (immediately following transplant) 15.0 . Trough (steady state, 2 weeks or more after transplant): 3.0 - 8.0 . Performed by LC-MS/MS technology. Performed By: #### F K506T ####[facility] Gsmzdxf[address] [place], [place] [address]Dr. Farhat Leal PHOSPHORUSon 01-26-2022 Phosphate [Mass/Vol] 4.1 mg/dL Normal 2.6-4.7 [facility] Comment on above: Performed By: #### C CARA, PHOS ####[facility] [address] [address]DrSkylar Leal PROF 14(COMP METB)on 022 Albumin [Mass/Vol] 2.1 g/dL Critically low 3.4-5.0 [facility] Comment on above: Performed By: #### C CARA, PHOS ####[facility] [address] [address]Dr. Farhat Leal Albumin/Globulin [Mass ratio] 0.6 {ratio} Normal [facility] Comment on above: Performed By: #### C CARA, PHOS ####[facility] [address] [address]Dr. Farhat Leal ALP [Catalytic activity/Vol] 89 U/L Normal 46-116 [facility] Comment on above: Performed By: #### C CARA, PHOS ####[facility] Vzdxajzljd[address] [place], [place] [address]Dr. Farhat Leal ALT [Catalytic activity/Vol] 27 U/L Normal 16-63 [facility] Comment on above: Performed By: #### C CARA, PHOS ####[facility] Qbbjcxhqlv[address] [place], [place] [address]Dr. Farhat Leal Anion gap [Moles/Vol] 12.3 mmol/L Normal [facility] Comment on above: Performed By: #### C MP, PHOS ####[facility] Pfmuznyatk[address] [place], [place] [address]Dr. Farhat Elvis AST [Catalytic activity/Vol] 53 U/L Critically high 15-37 [facility] Comment on above: Performed By: #### C CARA, PHOS ####[facility] Tagutztllw[address] [place], [place] [address]Dr. Farhat Leal Bilirubin [Mass/Vol] 0.6 mg/dL Normal 0.2-1.0 [facility] Comment on above: Performed By: #### C CARA, PHOS ####[facility] Hyvlzxntrh38[address] [place], [place] [address]Dr. Farhat Elvis Calcium [Mass/Vol] 8.0 mg/dL Critically low 8.5-10.1 [facility] Comment on above: Performed By: #### C CARA, PHOS ####[facility] Qnrxnjwzwo459[address] [place], [place] [address]Dr. Farhat Leal Chloride [Moles/Vol] 97 mmol/L Critically low 98-107 [facility] Comment on above: Performed By: #### C MP, PHOS ####[facility] Hqkigglrxh4[address] [place], [place] [address]Dr. Farhat Leal CO2 [Moles/Vol] 26.6 mmol/L Normal 21.0-32.0 [facility] Comment on above: Performed By: #### C CARA, PHOS ####[facility] Mvsxktdwzs[address] [place], [place] [address]Dr. Farhat Leal Creatinine [Mass/Vol] 1.03 mg/dL Normal 0.70-1.30 [facility] Comment on above: Performed By: #### C CARA, PHOS ####[facility] [address] [address]Dr. Farhat Leal EGFR-AF KITTITIAN >60 Normal >=60 [facility] Comment on above: Performed By: #### C MP, PHOS ####[facility] [address] [address]Dr. Farhat Leal EGFR-NON AF KITTITIAN >60 Normal >=60 [facility] Comment on above: Performed By: #### C CARA, PHOS ####[facility] Bwesurjrtk[address] [place], [place] [address]Dr. Farhat Leal Globulin (S) [Mass/Vol] 3.7 g/dL Normal [facility] Comment on above: Performed By: #### C CARA, PHOS ####[facility] Wbkacyfqjd6456[address] [place], [place] [address]Dr. Farhat Leal Glucose [Mass/Vol] 287 mg/dL Critically high 74-106 T [facility] Comment on above: Performed By: #### C CARA, PHOS ####[facility] Eumbudnqlf[address] [place], [place] [address]Dr. Farhat Leal Potassium [Moles/Vol] 3.9 mmol/L Normal 3.5-5.1 [facility] Comment on above: Performed By: #### C CARA, PHOS ####[facility] Pnfkqaqort[address] [place], [place] [address]Dr. Farhat Leal Protein [Mass/Vol] 5.8 g/dL Critically low 6.4-8.2 Th [facility] Comment on above: Performed By: #### C CARA, PHOS ####[facility] Gstlchcepl[address] [place], [place] [address]Dr. Farhat Leal Sodium [Moles/Vol] 132 mmol/L Critically low 136-145 Th [facility] Comment on above: Performed By: #### C CARA, PHOS ####[facility] Zatqtjdjzu16[address] [place], [place] [address]Dr. Farhat Leal Urea nitrogen [Mass/Vol] 23.0 mg/dL Critically high 7.0-18.0 [facility] Comment on above: Performed By: #### C HENRI MARROQUIN ####[facility] [address] [address]Dr. Farhat Leal Urea nitrogen/Creatinine [Mass ratio] 22.3 mg/mg Normal [facility] Comment on above: Performed By: #### C HENRI MARROQUIN ####[facility] [address] [address]Dr. Farhat Leal FK506 (TACROLIMUS) WHOLE BLO ODon 01-21-2022 Tacrolimus (FK506), Blood 12.2 ng/mL Normal 2.0-20.0 [facility] Comment on above: Result Comment: Trou gh (immediately following transplant) 15.0 . Trough (steady state, 2 weeks or more after transplant): 3.0 - 8.0 . Performed by LC-MS/MS technology. Performed By: #### F K506T ####[facility] H[address]ry[address]fgqm[address] [place], [place] [address]Dr. Farhat Leal ACID FAST SMEAR AND CXon Acid Fast Culture Negative Normal [facility] Comment on above: Result Comment: No a abdiel fast bacilli isolated after 6 weeks. Performed By: #### A FB ####[facility] Tbwrqsvqxo[address] [place], [place] [address]Dr. Farhat Leal Acid Fast Smear Negative Normal [facility] Comment on above: Performed By: #### A FB ####[facility] Hutctpccid[address] [place], [place] [address]Dr. Farhat Leal [employer] Specimen Processing Tissue Grinding Normal [facility] Comment on above: Performed By: #### A FB ####[facility] Dktpijcbdu[address] [place], [place] [address]Dr. Farhat Hassan [facility] ALEX ALMONTE ([id number]) 1945 M TRN Date Time Provider Department 01/20/22 VAN OLIVAREZ During your visit today, we recorded the following information about you: Van Olivarez APRN.CNP 01/20/2022 1:14 PM Signed Labs noted from yesterday. Pt is currently residing at [facility], I spoke with the Nurse, [...] by mouth daily with lunch. 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 Atherosclerosis of [place] artery of extremity w*11/29/2021 Malnutrition of moderate degree (HCC) [E44.0] 12/01/2021 Dermatitis associated with moisture [L30.8] 12/04/2021 Encounter Status:Closed by VAN OLIVAREZ on 01/20/22 [facility](COMP METB)on 022 Albumin [Mass/Vol] 1.9 g/dL Critically low 3.4-5.0 Th [facility] Comment on above: Performed By: #### C MP ####[facility] [address] [address]DrSkylar Leal Albumin/Globulin [Mass ratio] 0.5 {ratio} Normal [facility] Comment on above: Performed By: #### C MP ####[facility] [address] [address]DrSkylar Leal ALP [Catalytic activity/Vol] 78 U/L Normal 46-116 [facility] Comment on above: Performed By: #### C MP ####[facility] [address] [address]DrSkylar Leal ALT [Catalytic activity/Vol] 22 U/L Normal 16-63 [facility] Comment on above: Performed By: #### C MP ####[facility] [address] [address]Dr. Farhat Elvis Anion gap [Moles/Vol] 8.0 mmol/L Normal [facility] Comment on above: Performed By: #### C MP ####[facility] [address] [phone]. Farhat Elvis AST [Catalytic activity/Vol] 92 U/L Critically high 15-37 [facility] Comment on above: Performed By: #### C MP ####[facility] Uppuyjygzo[address] [place], [place] [address]Dr. Farhat Leal Bilirubin [Mass/Vol] 0.7 mg/dL Normal 0.2-1.0 [facility] Comment on above: Performed By: #### C MP ####[facility] Lgrnbay[address] [place], [place] [address]Dr. Farhat Leal Calcium [Mass/Vol] 7.8 mg/dL Critically low 8.5-10.1 Th [facility] Comment on above: Performed By: #### C MP ####[facility] Opaydxdywk[address] [place], [place] [address]Dr. Farhat Leal Chloride [Moles/Vol] 99 mmol/L Normal 98-107 [facility] Comment on above: Performed By: #### C MP ####[facility] Wsqvibwqbu[address] [place], [place] [address]Dr. Farhat Leal CO2 [Moles/Vol] 30.9 mmol/L Normal 21.0-32.0 [facility] Comment on above: Performed By: #### C MP ####[facility] S[address]maujuvfr[address] [place], [place] [address]Dr. Farhat Leal Creatinine [Mass/Vol] 0.95 mg/dL Normal 0.70-1.30 [facility] Comment on above: Performed By: #### C MP ####[facility] Zbeuygyqom[address] [place], [place] [address]Dr. Farhat Leal EGFR-AF KITT[place]IAN >60 Normal >=60 [facility] Comment on above: Performed By: #### C MP ####[facility] [address] [phone]. Farhat Leal EGFR-NON AF [place]ITT[place]IAN >60 Normal >=60 [facility] Comment on above: Performed By: #### C MP ####[facility] [address] [phone]. Farhat Leal Globulin (S) [Mass/Vol] 3.9 g/dL Normal [facility] Comment on above: Performed By: #### C MP ####[facility] [address] [phone]. Farhat Leal Glucose [Mass/Vol] 124 mg/dL Critically high 74-106 T [facility] Comment on above: Performed By: #### C MP ####[facility] [address] [phone]. Farhat Leal Potassium [Moles/Vol] 5.9 mmol/L Critically high 3.5-5.1 [facility] Comment on above: Performed By: #### C MP ####[facility] [address] [phone]. Farhat Leal Protein [Mass/Vol] 5.8 g/dL Critically low 6.4-8.2 Th [facility] Comment on above: Performed By: #### C MP ####[facility] [address] [address]Dr. Farhat Leal Sodium [Moles/Vol] 132 mmol/L Critically low 136-145 Th [facility] Comment on above: Performed By: #### C MP ####[facility] [address] [phone]. Farhat Leal Urea nitrogen [Mass/Vol] 18.0 mg/dL Normal 7.0-18.0 [facility] Comment on above: Performed By: #### C MP ####[facility] [address] [phone]. Farhat Elvis Urea nitrogen/Creatinine [Mass ratio] 18.9 mg/mg Normal [facility] Comment on above: Performed By: #### C MP ####[facility] [address] [phone]. Farhat Leal INR (POC)on 01-12-2022 INR Coag (PPP) [Relative time] 2.6 {INR} High 0.8 - 1.2 [facility] Internal Quality Check Acceptable Cl [facility] ACID FAST SMEAR AND CXon Acid Fast Culture Negative Normal [facility] Comment on above: Result Comment: No a abdiel fast bacilli isolated after 6 weeks. Performed By: #### A FB ####[facility] Ywthbwpkkq[address] [place], [place] [address]Dr. Farhat Leal Acid Fast Smear Negative Normal [facility] Comment on above: Performed By: #### A FB ####[facility] Yuqvvmnlic[address] [place], [place] [address]Dr. Farhat Leal [employer] Specimen Processing Direct Inoculation Normal [facility] Comment on above: Performed By: #### A FB ####[facility] Of[address]sh[address] [place], [place] [address]Dr. Farhat Leal ACID FAST SMEAR AND CXon Acid Fast Culture Negative Normal [facility] Comment on above: Result Comment: No a abdiel fast bacilli isolated after 6 weeks. Performed By: #### A FB ####[facility] [address] [place], [place] [address]Dr. Farhat Leal Acid Fast Smear Negative Normal [facility] Comment on above: Performed By: #### A FB ####[facility] [address]vwifij[address] [place], [place] [address]Dr. Farhat Leal [employer] Specimen Processing Tissue Grinding Normal [facility] Comment on above: Performed By: #### A FB ####[facility] X[address]hpjnqzm[address] [place], [place] [address]Dr. Farhat Leal FUNGAL CULTUREon 01-02-2022 Fungus (Mycology) Culture Final report Normal [facility] Comment on above: Performed By: #### C XFUN ####[facility] Cmejtcrdsb[address] [place], [place] [address]Dr. Farhat Leal Fungus Stain Final report Normal [facility] Comment on above: Performed By: #### C XFUN ####[facility] [address] [place] [address]. Farhat Leal Result 1 Comment Normal [facility] Comment on above: Result Comment: ANNI/ Calcofluor preparation: no fungus observed. Performed By: #### C XFUN ####[facility] X[address] [place] [address]. Farhat Leal Result Comment: No y east or mold isolated after 4 weeks. FK506 (TACROLIMUS) WHOLE BLO ODon 12-31-2021 Tacrolimus (FK506), Blood 7.7 ng/mL Normal 2.0-20.0 [facility] Comment on above: Result Comment: Trou gh (immediately following transplant) 15.0 . Trough (steady state, 2 weeks or more after transplant): 3.0 - 8.0 . Performed by LC-MS/MS technology. Performed By: #### F K506T ####[facility] [address] [place] [address]. Farhat Leal HEMOGRAM AND PLATELon 2021 Hematocrit (Bld) [Volume fraction] 27.1 % Critically low 42.0-54.0 [facility] Comment on above: Performed By: #### H H ####[facility] [address] [place] [address]. Farhat Leal Hemoglobin (Bld) [Mass/Vol] 8.7 g/dL Critically low 14.0-18.0 [facility] Comment on above: Performed By: #### H H ####[facility] [address] [place] [address]. Farhat Leal MCH (RBC) [Entitic mass] 30.3 pg Normal 25.9-34.0 [facility] Comment on above: Performed By: #### H H ####[facility] [address] [place] [address]. Farhat Leal MCHC (RBC) [Mass/Vol] 32.1 g/dL Normal 29.9-35.2 [facility] Comment on above: Performed By: #### H H ####[facility] [address] [phone]. Farhat Leal MCV (RBC) [Entitic vol] 94.4 fL Critically high 80.0-94.0 [facility] Comment on above: Performed By: #### H H ####[facility] [address] [address]Dr. Farhat Leal PLT 355 103/ul Normal 150-450 [facility] Comment on above: Performed By: #### H H ####[facility] [address] [phone]. Farhat Leal RBC 2.87 106/ul Critically low 4.70-6.10 [facility] Comment on above: Performed By: #### H H ####[facility] [address] [address]Dr. Farhat Elvis WBC 6.0 103/ul Normal 4.0-11.0 [facility] Comment on above: Performed By: #### H H ####[facility] [address] [address]Dr. Farhat Elvis PHOSPHORUSon 12-29-2021 Phosphate [Mass/Vol] 2.5 mg/dL Critically low 2.6-4.7 [facility] Comment on above: Performed By: #### P HOS, CMP ####[facility] M[address]xrjfvmsj[address] [place], [place] [address]Dr. Madelynlorri Leal PROF 14(COMP METB)on 022 Albumin [Mass/Vol] 1.7 g/dL Critically low 3.4-5.0 [facility] Comment on above: Performed By: #### P HOS, CMP ####[facility] Anhyuzgtbv174[address] [place], [place] [address]Dr. Farhat Elvis Albumin/Globulin [Mass ratio] 0.5 {ratio} Normal [facility] Comment on above: Performed By: #### P HOS, CMP ####[facility] [address] [address]Dr. Farhat Leal ALP [Catalytic activity/Vol] 78 U/L Normal 46-116 [facility] Comment on above: Performed By: #### P HOS, CMP ####[facility] Ezasyfoyfw[address] [place], [place] [address]Dr. Farhat Leal ALT [Catalytic activity/Vol] 12 U/L Critically low 16-63 [facility] Comment on above: Performed By: #### P HOS, CMP ####[facility] S[address]axujozh[address] [place], [place] [address]Dr. Farhat Leal Anion gap [Moles/Vol] 5.1 mmol/L Normal [facility] Comment on above: Performed By: #### P HOS, CMP ####[facility] Dfuqzdiyqh[address] [place], [place] [address]Dr. Farhat Leal AST [Catalytic activity/Vol] 22 U/L Normal 15-37 [facility] Comment on above: Performed By: #### P HOS, CMP ####[facility] Yartvemnef[address] [place], [place] [address]Dr. Farhat Leal Bilirubin [Mass/Vol] 0.6 mg/dL Normal 0.2-1.0 [facility] Comment on above: Performed By: #### P HOS, CMP ####[facility] Oaq[address]cilz[address] [place], [place] [address]Dr. Farhat Leal Calcium [Mass/Vol] 8.1 mg/dL Critically low 8.5-10.1 Th [facility] Comment on above: Performed By: #### P HOS, CMP ####[facility] Y[address]jehzmiez[address] [place], [place] [address]Dr. Farhat Leal Chloride [Moles/Vol] 100 mmol/L Normal 98-107 [facility] Comment on above: Performed By: #### P HOS, CMP ####[facility] Lkxpsexpal[address] [place], [place] [address]Dr. Farhat Leal CO2 [Moles/Vol] 34.2 mmol/L Critically high 21.0-32.0 [facility] Comment on above: Performed By: #### P HOS, CMP ####[facility] Beizfxlary[address] [place], [place] [address]Dr. Farhat Elvis Creatinine [Mass/Vol] 0.92 mg/dL Normal 0.70-1.30 [facility] Comment on above: Performed By: #### P HOS, CMP ####[facility] [address] [address]Dr. Farhat Leal EGFR-AF [place] >60 Normal >=60 [facility] Comment on above: Performed By: #### P HOS, CMP ####[facility] [address]rupsax[address] [place] [phone]. Farhat Elvis EGFR-NON AF [place]IAN >60 Normal >=60 [facility] Comment on above: Performed By: #### P HOS, CMP ####[facility] [address] [address]Dr. Farhat Leal Globulin (S) [Mass/Vol] 3.3 g/dL Normal [facility] Comment on above: Performed By: #### P HOS, CMP ####[facility] Tlvwcrpopq[address] [place], [place] [address]Dr. Farhat Leal Glucose [Mass/Vol] 116 mg/dL Critically high 74-106 [facility] Comment on above: Performed By: #### P HOS, CMP ####[facility] Arqshhkixq[address] [place], [place] [address]Dr. Farhat Leal Potassium [Moles/Vol] 3.3 mmol/L Critically low 3.5-5.1 [facility] Comment on above: Performed By: #### P HOS, CMP ####[facility] Rxtsmmctdi[address] [place], [place] [address]Dr. Madelynlorri Elvis Protein [Mass/Vol] 5.0 g/dL Critically low 6.4-8.2 Th [facility] Comment on above: Performed By: #### P HOS, CMP ####[facility] Gwqnllvylm[address] [place], [place] [address]Dr. Farhat Leal Sodium [Moles/Vol] 136 mmol/L Normal 136-145 [facility] Comment on above: Performed By: #### P HOS, CMP ####[facility] Iudtkjnhzz[address] [place], [place] [address]Dr. Farhat Leal Urea nitrogen [Mass/Vol] 14.0 mg/dL Normal 7.0-18.0 [facility] [facility] Comment on above: Performed By: #### P HOS, CMP ####[facility] Rhditwhogw[address] [place], [place] [address]DrSkylar Leal Urea nitrogen/Creatinine [Mass ratio] 15.2 mg/mg Normal [facility] Comment on above: Performed By: #### P HOS, CMP ####[facility] Kdcectpzxz3[address] [place], [place] [address]DrSkylar Leal PROTIMEon 12-29-2021 INR Coag (PPP) [Relative time] 1.26 {INR} Normal [facility] Comment on above: Performed By: #### P T ####[facility] Prbbpfaaun3[address] [place], [place] [address]DrSkylar Leal INR GUIDELINES SEE BELOW Normal [facility] Comment on above: Result Comment: MALINA RED INR: 2.0 - 3.0 CONDITIONS NOT LISTED BELOW 2.5 - 3.5 FOR PROSTHETIC HEART VALVE REPLACEMENT 2.5 - 3.5 RECURRENT THROMBOSIS Performed By: #### P T ####[facility] Nrkelnjfdr7964[address] [place], [place] [address]DrSkylar Leal PT Coag (PPP) [Time] 13.4 s Critically high 9.0-11.6 [facility] Comment on above: Performed By: #### P T ####[facility] Xtecbpzrjb1111[address] [place], [place] [address]DrSkylar Leal XR MODIFIED BARIUM SWALLOWon 12-25-2021 XR MODIFIED BARIUM SWALLOW Normal [facility] FUNGAL CULTUREon 12-24-2021 Fungus (Mycology) Culture Final report Normal [facility] Comment on above: Performed By: #### C XFUN ####[facility] Yfktavgobe5208[address] [place], [place] [address]DrSkylar Leal Fungus Stain Final report Normal [facility] Comment on above: Performed By: #### C XFUN ####[facility] Pcmfdlxidj1858[address] [place], [place] [address]DrSkylar Leal Result 1 Comment Normal [facility] Comment on above: Result Comment: ANNI/ Calcofluor preparation: no fungus observed. Performed By: #### C XFUN ####[facility] [address] [place] [address]Dr. Farhat Leal Result Comment: No y east or mold isolated after 4 weeks. VANCOMYCIN TROUGHon 12-21-19 VANCOMYCIN TROUGH 14.4 ug/ml Normal 5.0-20.0 [facility] Comment on above: Performed By: #### V ANCT ####[facility] Tjhninzvmr7[address] [place], [place] [address]Dr. Farhat Leal CBC AUTO DIFFon 12-14-2021 BASO # 0.0 103/ul Normal 0.0-0.1 [facility] Comment on above: Performed By: #### C BC ####[facility] Mmdmnenjwt8704[address] [place], [place] [address]Dr. Madelynlorri Leal Basophils/100 WBC (Bld) 0.2 % Normal 0.2-2.0 [facility] Comment on above: Performed By: #### C BC ####[facility] Tartcxtqtl123[address] [place], [place] [address]Dr. Farhat Elvis EO # 0.2 103/ul Normal 0.0-0.7 [facility] Comment on above: Performed By: #### C BC ####[facility] Wrjtnbhtbm5947[address] [place], [place] [address]Dr. Farhat Elvis Eosinophils/100 WBC (Bld) 2.1 % Normal 0.9-7.0 [facility] Comment on above: Performed By: #### C BC ####[facility] Jwevbgirrn1229[address] [place], [place] [address]Dr. Farhat Leal Erythrocyte distribution width (RBC) [Ratio] 18.2 % Critically high 11.0-15.0 [facility] Comment on above: Performed By: #### C BC ####[facility] Fpgtzniqny4565[address] [place], [place] [address]Dr. Farhat Leal Hematocrit (Bld) [Volume fraction] 25.8 % Critically low 42.0-54.0 [facility] Comment on above: Performed By: #### C BC ####[facility] [address] [place] [id number]. Farhat Leal Hemoglobin (Bld) [Mass/Vol] 8.0 g/dL Critically low 14.0-18.0 [facility] Comment on above: Performed By: #### C BC ####[facility] Nutaqhmqua[address] [place] [id number]. Farhat Leal IG # 0.08 10e3/ul Critically high 0.00-0.03 [facility] Comment on above: Performed By: #### C BC ####[facility] Rt[address]zlbpu[address] [place] [phone]. Farhat Leal IG % 0.7 % Critically high 0.0-0.5 [facility] Comment on above: Performed By: #### C BC ####[facility] Npdgqcdjtm8567[address] [place], [place] [address]Dr. Farhat Leal LYMPH # 0.9 103/ul Critically low 1.2-3.8 [facility] Comment on above: Performed By: #### C BC ####[facility] Dqkgejmycs3[address] [place] [address]Dr. Farhat Leal Lymphocytes/100 WBC (Bld) 8.7 % Critically low 20.5-60.0 [facility] Comment on above: Performed By: #### C BC ####[facility] Mtrieczvcs7[address] [place] [address]Dr. Farhat Leal MANUAL DIFF REQ NO Normal [facility] Comment on above: Performed By: #### C BC ####[facility] Eoangleksg4326[address] [place], [place] [address]Dr. Farhat Leal MCH (RBC) [Entitic mass] 30.0 pg Normal 25.9-34.0 [facility] Comment on above: Performed By: #### C BC ####[facility] Dtsewjbfye4055[address] [place], [place] [address]Dr. Farhat Leal MCHC (RBC) [Mass/Vol] 31.0 g/dL Normal 29.9-35.2 [facility] Comment on above: Performed By: #### C BC ####[facility] Ckvnklnyri5[address] [place] [id number]. Farhat Leal MCV (RBC) [Entitic vol] 96.6 fL Critically high 80.0-94.0 [facility] Comment on above: Performed By: #### C BC ####[facility] Rsmbgeflyw4433 [place] [phone]. Farhat Leal MONO # 0.7 103/ul Normal 0.3-0.8 [facility] Comment on above: Performed By: #### C BC ####[facility] Wcweqdycyf[address] [place], [place] [id number]. Farhat Leal Monocytes/100 WBC (Bld) 6.7 % Normal 1.7-12.0 [facility] Comment on above: Performed By: #### C BC ####[facility] Ebsysvodzz344[address] [place], [place] [address]Dr. Farhat Leal NEUT # 8.8 103/ul Critically high 1.4-6.5 [facility] Comment on above: Performed By: #### C BC ####[facility] Pcbirmzalc8906[address] [place], [place] [address]Dr. Farhat Leal Neutrophils/100 WBC (Bld) 81.6 % Critically high 43.0-75.0 [facility] Comment on above: Performed By: #### C BC ####[facility] Iteofdlvxl3216[address] [place], [place] [address]Dr. Farhat Leal Platelet mean volume (Bld) [Entitic vol] 10.5 fL Normal 9.5-13.5 [facility] Comment on above: Performed By: #### C BC ####[facility] Ncoclobtwh3539[address] [place], [place] [address]Dr. Farhat Leal PLT 285 103/ul Normal 150-450 [facility] Comment on above: Performed By: #### C BC ####[facility] Ibvpsfbovl[address] [place], [place] [id number]. Farhat Leal RBC 2.67 106/ul Critically low 4.70-6.10 [facility] Comment on above: Performed By: #### C BC ####[facility] Y[address]cpfpfkus[address] [place] [phone]. Farhat Elvis WBC 10.7 103/ul Normal 4.0-11.0 [facility] Comment on above: Performed By: #### C BC ####[facility] [address] [place] [phone]. Madelynlorri Leal PROF CHEM 8 (BAS METB)on Anion gap [Moles/Vol] 12.4 mmol/L Normal [facility] Comment on above: Performed By: #### B MP ####[facility] Ph[address]ijwmnr[address] [place] [address]Dr. Farhat Leal Calcium [Mass/Vol] 7.8 mg/dL Critically low 8.5-10.1 [facility] Comment on above: Performed By: #### B MP ####[facility] Tedayqyjkp2126[address] [place], [place] [address]Dr. Farhat Leal Chloride [Moles/Vol] 102 mmol/L Normal 98-107 [facility] Comment on above: Performed By: #### B MP ####[facility] Fperaoaehq8055[address] [place], [place] [address]Dr. Madelynlorri Leal CO2 [Moles/Vol] 28.1 mmol/L Normal 21.0-32.0 [facility] Comment on above: Performed By: #### B MP ####[facility] Xcakuffhej7208[address] [place], [place] [address]Dr. Farhat Leal Creatinine [Mass/Vol] 1.24 mg/dL Normal 0.70-1.30 [facility] Comment on above: Performed By: #### B MP ####[facility] [address] [place] [address]Dr. Farhat Leal EGFR-AF KITTITIAN >60 Normal >=60 [facility] Comment on above: Performed By: #### B MP ####[facility] Rtfwpitzgl[address] [place] [phone]. Farhat Leal EGFR-NON AF KITTITIAN 57 mL/min/1.73m2 Critically low >=60 [facility] Comment on above: Performed By: #### B MP ####[facility] Y[address]usdcymf[address] [place] [address]Dr. Farhat Leal Glucose [Mass/Vol] 296 mg/dL Critically high 74-106 T [facility] Comment on above: Performed By: #### B MP ####[facility] Wnsgzihgex8[address] [place] [address]Dr. Farhat Leal Potassium [Moles/Vol] 3.5 mmol/L Normal 3.5-5.1 [facility] Comment on above: Performed By: #### B MP ####[facility] Czzpotnpax64[address] [place], [place] [address]Dr. Farhat Leal Sodium [Moles/Vol] 139 mmol/L Normal 136-145 [facility] Comment on above: Performed By: #### B MP ####[facility] Ifwkszppbo4545[address] [place], [place] [address]Dr. Farhat Leal Urea nitrogen [Mass/Vol] 27.0 mg/dL Critically high 7.0-18.0 [facility] Comment on above: Performed By: #### B MP ####[facility] Yktiijcqty[address] [place], [place] [address]Dr. Farhat Leal Urea nitrogen/Creatinine [Mass ratio] 21.8 mg/mg Normal [facility] Comment on above: Performed By: #### B MP ####[facility] Vunvhhnufh2[address] [place], [place] [address]Dr. Farhat Leal PROTIMEon 12-14-2021 INR Coag (PPP) [Relative time] 3.36 {INR} Normal [facility] Comment on above: Performed By: #### P T ####[facility] Svebpbdyes8174[address] [place], [place] [address]Dr. Farhat Leal INR GUIDELINES SEE BELOW Normal [facility] Comment on above: Result Comment: MALINA RED INR: 2.0 - 3.0 CONDITIONS NOT LISTED BELOW 2.5 - 3.5 FOR PROSTHETIC HEART VALVE REPLACEMENT 2.5 - 3.5 RECURRENT THROMBOSIS Performed By: #### P T ####[facility] Fxfttongup14[address] [place], [place] [address]DrSkylar Leal PT Coag (PPP) [Time] 33.5 s Critically high 9.0-11.6 [facility] Comment on above: Performed By: #### P T ####[facility] Byjedftevc6026 [place], [place] [address]PcSkylar Joshilorri Elvis XR CHEST 1 Von 12-14-2021 XR CHEST 1 V Normal [facility] No Panel Informationon 12-01 BLANK _ [facility] Implant Date 04/22/2012 [facility]ER [facility] CHECKon AMS Duration (ms) 5 of 8 [facility] AMS Fallback Rate (bpm) DDIR [facility] AV Delay Adaptive Paced Minimum (ms) 300 ms [facility] AV Delay Adaptive Rate Maximum (bpm) 130 {beats}/min [facility] AV Delay Adaptive Rate Minimum (bpm) 70 {beats}/min [facility] AV Delay Adaptive Sensed Minimum (ms) 300 ms [facility] AV Delay Paced (ms) 300 ms [facility] AV Delay Sensed (ms) 300 ms [facility] Jaciel LV Pacing Polarity Unknown [facility] Jaciel LV Sensing Polarity Unknown [facility] Jaciel RA Pacing Amplitude (volts) 2.4 V [facility] Jaciel RA Pacing Polarity BI [facility] Jaciel RA Pacing Pulse Width (ms) 0.4 ms [facility] Jaciel RA Sensing Amplitude (mvolts) AUTO [facility] Jaciel RA Sensing Blanking Period (ms) 56 ms [facility] Jaciel RA Sensing Polarity BI [facility] Jaciel RA Sensing Refractory Period (ms) AUTO [facility] Jaciel RV Pacing Amplitude (volts) 3.4 V [facility] Jaciel RV Pacing Polarity BI [facility] Jaciel RV Pacing Pulse Width (ms) 0.4 ms [facility] Jaciel RV Sensing Amplitude (mvolts) AUTO [facility] Jaciel RV Sensing Blanking Period (ms) 30 ms [facility] Jaciel RV Sensing Polarity BI [facility] Jaciel RV Sensing Refractory Period (ms) 250 ms [facility] Hysteresis Rate (bpm) 60 {beats}/min [facility] Lead1 Mfg SUZETTE [facility] Lead2 Mfg SUZETTE [facility] Location RA [facility] Location RV [facility] Lower Rate (bpm) 60 {beats}/min [facility] Max Sensor Rate (bmp) 130 {beats}/min [facility] Model 686466 Monika Dominguez [facility] Model 604264 [facility] Model 664232 [facility] Pacemaker Dependent? NO [facility] PM-Device Mfg BIO [facility] PM-PMT Intervention ON [facility] PM-PVC Intervention ON [facility] PM-Rate Modulation Acceleration Reaction 4 s [facility] PM-Rate Modulation Deceleration 0.5 m [facility] PM-Rate Modulation [place] 23 [facility] PM-Rate Modulation Threshold Medium [facility] RA Bipolar Impedance ohms 448 ohm [facility] Rhythm AF with controlled ventricular rate. [facility] RV Bipolar Impedance ohms 390 ohm [facility] Serial Number [id number] [facility] Serial Number [id number] [facility] Serial Number [id number] [facility] Thresh RA Sensing Amplitude (mvolts) 2.4 mV [facility] Thresh RV Capture Amplitude (volts) 1.8 V [facility] Thresh RV Capture Duration (ms) 0.4 ms [facility] Thresh RV Sensing Amplitude (mvolts) 2.4 mV [facility] Tracking Rate (bpm) 160 {beats}/min [facility] BNPon 11-28-2021 Natriuretic peptide B (Bld) [Mass/Vol] 00338.0 pg/mL Critically high <=1,800.0 [facility] Comment on above: Performed By: #### C MP, BNP, CRP ####[facility] Wfxfqulvxw[address] [place], [place] [address]Dr. Farhat Leal CBC AUTO DIFFon 11-28-2021 BASO # 0.0 103/ul Normal 0.0-0.1 [facility] Comment on above: Performed By: #### C BC ####[facility] [address] [place] [address]Dr. Farhat Leal Basophils/100 WBC (Bld) 0.3 % Normal 0.2-2.0 [facility] Comment on above: Performed By: #### C BC ####[facility] Incersrqtz[address] [place], [place] [address]Dr. Farhat Leal EO # 0.1 103/ul Normal 0.0-0.7 [facility] Comment on above: Performed By: #### C BC ####[facility] Feynsvukwf[address] [place], [place] [id number]. Farhat Leal Eosinophils/100 WBC (Bld) 1.0 % Normal 0.9-7.0 [facility] Comment on above: Performed By: #### C BC ####[facility] [address]zwemja[address] [place] [address]Dr. Farhat Leal Erythrocyte distribution width (RBC) [Ratio] 14.0 % Normal 11.0-15.0 [facility] Comment on above: Performed By: #### C BC ####[facility] Ziiglzmwbl9925[address] [place], [place] [address]Dr. Farhat Leal Hematocrit (Bld) [Volume fraction] 27.6 % Critically low 42.0-54.0 [facility] Comment on above: Performed By: #### C BC ####[facility] Xqsipilhei3845[address] [place], [place] [address]Dr. Farhat Leal Hemoglobin (Bld) [Mass/Vol] 9.0 g/dL Critically low 14.0-18.0 [facility] Comment on above: Performed By: #### C BC ####[facility] Qbpdiedlaq5433[address] [place], [place] [address]Dr. Farhat Leal IG # 0.12 10e3/ul Critically high 0.00-0.03 [facility] Comment on above: Performed By: #### C BC ####[facility] Xvdlzsxfmi1184[address] [place], [place] [address]Dr. Farhat Leal IG % 1.0 % Critically high 0.0-0.5 [facility] Comment on above: Performed By: #### C BC ####[facility] Bynpwhjuzc[address] [place], [place] [address]Dr. Farhat Leal LYMPH # 1.2 103/ul Normal 1.2-3.8 [facility] Comment on above: Performed By: #### C BC ####[facility] Urhbcluyte[address] [place], [place] [address]Dr. Farhat Leal Lymphocytes/100 WBC (Bld) 9.9 % Critically low 20.5-60.0 [facility] Comment on above: Performed By: #### C BC ####[facility] [address]sw[address]up[address] [place] [id number]. Farhat Leal MANUAL DIFF REQ NO Normal [facility] Comment on above: Performed By: #### C BC ####[facility] Qyqdpjxxvp6442 [place] [phone]. Farhat Leal MCH (RBC) [Entitic mass] 30.0 pg Normal 25.9-34.0 [facility] Comment on above: Performed By: #### C BC ####[facility] [address]vqhncql37[address] [place] [address]Dr. Farhat Leal MCHC (RBC) [Mass/Vol] 32.6 g/dL Normal 29.9-35.2 [facility] Comment on above: Performed By: #### C BC ####[facility] [address]mjrmphrmb[address] [place] [address]Dr. Farhat Leal MCV (RBC) [Entitic vol] 92.0 fL Normal 80.0-94.0 [facility] Comment on above: Performed By: #### C BC ####[facility] Ibhaycuokb07[address] [place] [phone]. Farhat Elvis MONO # 1.1 103/ul Critically high 0.3-0.8 [facility] Comment on above: Performed By: #### C BC ####[facility] Cmzqbapkyh55[address] [place] [phone]. Madelynlorri Leal Monocytes/100 WBC (Bld) 9.3 % Normal 1.7-12.0 [facility] Comment on above: Performed By: #### C BC ####[facility] Xejqstdesr119[address] [place] [id number]. Farhat Leal NEUT # 9.3 103/ul Critically high 1.4-6.5 [facility] Comment on above: Performed By: #### C BC ####[facility] Pqllsvlret4581 [place] [phone]. Farhat Leal Neutrophils/100 WBC (Bld) 78.5 % Critically high 43.0-75.0 [facility] Comment on above: Performed By: #### C BC ####[facility] Nuollbujso0360 [place] [phone]. Farhat Leal Platelet mean volume (Bld) [Entitic vol] 9.6 fL Normal 9.5-13.5 [facility] Comment on above: Performed By: #### C BC ####[facility] Meiwgdjduy0997 [place] [phone]. Farhat Leal PLT 357 103/ul Normal 150-450 [facility] Comment on above: Performed By: #### C BC ####[facility] Xfwmdkltrh0277 [place] [phone]. Farhat Leal RBC 3.00 106/ul Critically low 4.70-6.10 [facility] Comment on above: Performed By: #### C BC ####[facility] Pqitbwvkgf9100 [place] [phone]. Farhat Leal WBC 11.8 103/ul Critically high 4.0-11.0 [facility] Comment on above: Performed By: #### C BC ####[facility] Vesidckmze[address] [place], [place] [address]Dr. Farhat Leal CRPon 11-28-2021 CRP 20.9 mg/dL Critically high <=1.0 [facility] Comment on above: Performed By: #### C MP, BNP, CRP ####[facility] [address]wr[address]ell[address] [place] [phone]. Farhat Leal CULTURE OTHERon 11-28-2021 CULTURE OTHER Normal [facility] Comment on above: Performed By: #### O THCX ####[facility] Fblmwzazie24[address] [place] [phone]. Farhat Leal CULTURE OTHER Normal [facility] Comment on above: Performed By: #### O THCX ####[facility] Mqlvnzmaxn7[address] [place], [place] [address]Dr. Farhat Leal PROF 14(COMP METB)on 022 Albumin [Mass/Vol] 1.4 g/dL Critically low 3.4-5.0 [facility] Comment on above: Performed By: #### C MP, BNP, CRP ####[facility] Zlvzfvkfyk6[address] [place] [address]Dr. Farhat Leal Albumin/Globulin [Mass ratio] 0.4 {ratio} Normal [facility] Comment on above: Performed By: #### C MP, BNP, CRP ####[facility] Rymzlwowru7[address] [place] [address]Dr. Farhat Leal ALP [Catalytic activity/Vol] 82 U/L Normal 46-116 [facility] Comment on above: Performed By: #### C MP, BNP, CRP ####[facility] Hrkozmfxrv8832 [place] [address]Dr. Farhat Leal ALT [Catalytic activity/Vol] 20 U/L Normal 16-63 [facility] Comment on above: Performed By: #### C MP, BNP, CRP ####[facility] Hinnowdjyk8[address] [place], [place] [address]Dr. Farhat Leal Anion gap [Moles/Vol] 13.0 mmol/L Normal [facility] Comment on above: Performed By: #### C MP, BNP, CRP ####[facility] Qfvugyiohn3579[address] [place], [place] [address]Dr. Farhat Leal AST [Catalytic activity/Vol] 33 U/L Normal 15-37 [facility] Comment on above: Performed By: #### C MP, BNP, CRP ####[facility] Gjylfqarot16[address] [place], [place] [address]Dr. Farhat Leal Bilirubin [Mass/Vol] 0.7 mg/dL Normal 0.2-1.0 [facility] Comment on above: Performed By: #### C MP, BNP, CRP ####[facility] Wjwfiyopwy9416[address] [place], [place] [address]Dr. Farhat Leal Calcium [Mass/Vol] 8.4 mg/dL Critically low 8.5-10.1 [facility] Comment on above: Performed By: #### C MP, BNP, CRP ####[facility] Efjpxpauib[address] [place], [place] [address]Dr. Farhat Leal Chloride [Moles/Vol] 100 mmol/L Normal 98-107 [facility] Comment on above: Performed By: #### C MP, BNP, CRP ####[facility] Wvccnfyimf74[address] [place] [address]Dr. Farhat Leal CO2 [Moles/Vol] 23.7 mmol/L Normal 21.0-32.0 [facility] Comment on above: Performed By: #### C MP, BNP, CRP ####[facility] Ealskusenx3546 [place] [address]Dr. Farhat Leal Creatinine [Mass/Vol] 1.70 mg/dL Critically high 0.70-1.30 [facility] Comment on above: Performed By: #### C MP, BNP, CRP ####[facility] Rzxhnccpol7717[address] [place], [place] [address]Dr. Farhat Leal EGFR-AF KITTITIAN 48 mL/min/1.73m2 Critically low >=60 [facility] Comment on above: Performed By: #### C MP, BNP, CRP ####[facility] Gpmveckuts3774[address] [place], [place] [address]Dr. Farhat Leal EGFR-NON AF KITTITIAN 39 mL/min/1.73m2 Critically low >=60 [facility] Comment on above: Performed By: #### C MP, BNP, CRP ####[facility] Cbymkcwckl90[address] [place], [place] [address]Dr. Farhat Leal Globulin (S) [Mass/Vol] 3.6 g/dL Normal [facility] Comment on above: Performed By: #### C MP, BNP, CRP ####[facility] Nvrlxwksua0154 [place] [address]Dr. Farhat Leal Glucose [Mass/Vol] 232 mg/dL Critically high 74-106 T [facility] Comment on above: Performed By: #### C MP, BNP, CRP ####[facility] Iqoasgapim[address] [place], [place] [address]Dr. Farhat Leal Potassium [Moles/Vol] 3.7 mmol/L Normal 3.5-5.1 [facility] Comment on above: Performed By: #### C MP, BNP, CRP ####[facility] Ebdrxvkwxg6196 [place] [address]Dr. Farhat Leal Protein [Mass/Vol] 5.0 g/dL Critically low 6.4-8.2 Th [facility] Comment on above: Performed By: #### C MP, BNP, CRP ####[facility] [address]elyqvnlni9125 [place] [address]Dr. Farhat Leal Sodium [Moles/Vol] 133 mmol/L Critically low 136-145 Th [facility] Comment on above: Performed By: #### C MP, BNP, CRP ####[facility] Ukvmdwjcoz5726 [place] [address]Dr. Farhat Leal Urea nitrogen [Mass/Vol] 52.0 mg/dL Critically high 7.0-18.0 [facility] Comment on above: Performed By: #### C MP, BNP, CRP ####[facility] Driklegbop1318[address] [place], [place] [address]Dr. Farhat Leal Urea nitrogen/Creatinine [Mass ratio] 30.6 mg/mg Normal [facility] Comment on above: Performed By: #### C MP, BNP, CRP ####[facility] Chnwucoksh[address] [place] [address]Dr. Farhat Leal PROTIMEon 11-28-2021 INR Coag (PPP) [Relative time] 1.29 {INR} Normal [facility] Comment on above: Performed By: #### P T ####[facility] Njufzeoffx[address] [place], [place] [address]Dr. Farhat Leal INR GUIDELINES SEE BELOW Normal [facility] Comment on above: Result Comment: MALINA RED INR: 2.0 - 3.0 CONDITIONS NOT LISTED BELOW 2.5 - 3.5 FOR PROSTHETIC HEART VALVE REPLACEMENT 2.5 - 3.5 RECURRENT THROMBOSIS Performed By: #### P T ####[facility] Hvesmntpqs7[address] [place], [place] [address]Dr. Farhat Leal PT Coag (PPP) [Time] 13.7 s Critically high 9.0-11.6 [facility] Comment on above: Performed By: #### P T ####[facility] Otrrtkixbh1746[address] [place], [place] [address]Dr. Farhat Leal SED RATE WESTERGRENon 2021 SED RATE 77 mm/hr Critically high <=20 [facility] Comment on above: Performed By: #### S EDR ####[facility] Hbhjfhhffy7[address] [place], [place] [address]Dr. Farhat Leal XR CHEST 2 Von 11-28-2021 XR CHEST 2 V Normal [facility] BNPon 11-27-2021 Natriuretic peptide B (Bld) [Mass/Vol] 86420.0 pg/mL Critically high <=1,800.0 [facility] Comment on above: Performed By: #### B GRIT BLASTER, CMP, CRP ####[facility] Jxuaaxpzjf8[address] [place], [place] [address]Dr. Farhat Leal CBC AUTO DIFFon 11-27-2021 BASO # 0.0 103/ul Normal 0.0-0.1 [facility] Comment on above: Performed By: #### C BC ####[facility] Ymtepbimmd[address] [place], [place] [address]Dr. Farhat Leal Basophils/100 WBC (Bld) 0.2 % Normal 0.2-2.0 [facility] Comment on above: Performed By: #### C BC ####[facility] Wikwfncasi1645[address] [place], [place] [address]Dr. Farhat Leal EO # 0.2 103/ul Normal 0.0-0.7 [facility] Comment on above: Performed By: #### C BC ####[facility] Ahrckgxefc25[address] [place], [place] [address]Dr. Farhat Leal Eosinophils/100 WBC (Bld) 1.9 % Normal 0.9-7.0 [facility] Comment on above: Performed By: #### C BC ####[facility] Gsfunxnhwp0224[address] [place], [place] [address]Dr. Farhat Leal Erythrocyte distribution width (RBC) [Ratio] 13.9 % Normal 11.0-15.0 [facility] Comment on above: Performed By: #### C BC ####[facility] Wevjizidun[address] [place], [place] [address]DrSkylar Leal Hematocrit (Bld) [Volume fraction] 28.7 % Critically low 42.0-54.0 [facility] Comment on above: Performed By: #### C BC ####[facility] [address] [place] [address]DrSkylar Leal Hemoglobin (Bld) [Mass/Vol] 9.3 g/dL Critically low 14.0-18.0 [facility] Comment on above: Performed By: #### C BC ####[facility] [address]rzhqnjm[address] [place] [address]DrSkylar Leal IG # 0.14 10e3/ul Critically high 0.00-0.03 [facility] Comment on above: Performed By: #### C BC ####[facility] Xvgqyszuoi24[address] [place] [address]DrSkylar Leal IG % 1.2 % Critically high 0.0-0.5 [facility] Comment on above: Performed By: #### C BC ####[facility] Tviebgqwqo9948[address] [place], [place] [address]DrSkylar Leal LYMPH # 1.1 103/ul Critically low 1.2-3.8 [facility] Comment on above: Performed By: #### C BC ####[facility] [address]lewhf[address] [place] [address]DrSkylar Leal Lymphocytes/100 WBC (Bld) 9.4 % Critically low 20.5-60.0 [facility] Comment on above: Performed By: #### C BC ####[facility] Yntjlmrqzs[address] [place] [address]DrSkylar Leal MANUAL DIFF REQ NO Normal [facility] Comment on above: Performed By: #### C BC ####[facility] Ycoheuvogi[address] [place], [place] [address]DrSkylar Leal MCH (RBC) [Entitic mass] 29.7 pg Normal 25.9-34.0 [facility] Comment on above: Performed By: #### C BC ####[facility] Eekbymbdgl[address] [place], [place] [address]DrSkylar Leal MCHC (RBC) [Mass/Vol] 32.4 g/dL Normal 29.9-35.2 [facility] Comment on above: Performed By: #### C BC ####[facility] [address]wo[address] [place] [id number]. Farhat Leal MCV (RBC) [Entitic vol] 91.7 fL Normal 80.0-94.0 [facility] Comment on above: Performed By: #### C BC ####[facility] P[address]upxdtmc[address] [place] [address]Dr. Farhat Elvis MONO # 1.1 103/ul Critically high 0.3-0.8 [facility] Comment on above: Performed By: #### C BC ####[facility] Usvlldfdxe11[address] [place] [address]Dr. Madelynlorri Leal Monocytes/100 WBC (Bld) 9.7 % Normal 1.7-12.0 [facility] Comment on above: Performed By: #### C BC ####[facility] Apyrtuifjf4364[address] [place], [place] [address]Dr. Farhat Leal NEUT # 9.2 103/ul Critically high 1.4-6.5 [facility] Comment on above: Performed By: #### C BC ####[facility] Rzzmwwnelw2376[address] [place], [place] [address]Dr. Farhat Elvis Neutrophils/100 WBC (Bld) 77.6 % Critically high 43.0-75.0 [facility] Comment on above: Performed By: #### C BC ####[facility] Newyromdvf34[address] [place] [address]Dr. Farhat Elvis Platelet mean volume (Bld) [Entitic vol] 9.5 fL Normal 9.5-13.5 [facility] Comment on above: Performed By: #### C BC ####[facility] Twyp[address]mxsq[address] [place] [address]Dr. Madelynlorri Elvis PLT 375 103/ul Normal 150-450 [facility] Comment on above: Performed By: #### C BC ####[facility] Mjvkdmtdls54[address] [place] [address]Dr. Farhat Leal RBC 3.13 106/ul Critically low 4.70-6.10 [facility] Comment on above: Performed By: #### C BC ####[facility] Jp[address]iayn[address] [place] [id number]. Farhat Leal WBC 11.8 103/ul Critically high 4.0-11.0 [facility] Comment on above: Performed By: #### C BC ####[facility] Xfxwcocwcw64[address] [place] [address]Dr. Farhat Leal CRPon 11-27-2021 CRP 24.5 mg/dL Critically high <=1.0 [facility] Comment on above: Performed By: #### B GRIT BLASTER, CMP, CRP ####[facility] [address]frq[address] [place] [address]Dr. Farhat Leal CULTURE OTHERon 11-27-2021 CULTURE OTHER Normal [facility] Comment on above: Performed By: #### O THCX ####[facility] Aq[address]cj[address] [place] [address]Dr. Farhat Leal CULTURE OTHER Normal [facility] Comment on above: Performed By: #### O THCX ####[facility] Bepplgtqif[address] [place] [address]Dr. Farhat Leal CULTURE WOUNDon 11-27-2021 CULTURE WOUND Normal [facility] Comment on above: Performed By: #### W OUNDCX ####[facility] Vcf[address]ewxvpt[address] [place] [address]Dr. Farhat Leal POINT OF CARE GLUCOSEon 11-15 Glucose [Mass/Vol] 147 mg/dL Critically high 74-106 [facility] Comment on above: Performed By: #### P OCGLUC ####[facility] Obpzaxqvdl5[address] [place] [address]Dr. Farhat Leal PROF 14(COMP METB)on 022 Albumin [Mass/Vol] 1.4 g/dL Critically low 3.4-5.0 [facility] Comment on above: Performed By: #### B GRIT BLASTER, CMP, CRP ####[facility] Juyeuzefrm[address] [place] [address]Dr. Farhat Leal Albumin/Globulin [Mass ratio] 0.4 {ratio} Normal [facility] Comment on above: Performed By: #### B GRIT BLASTER, CMP, CRP ####[facility] Uwghhdbado29[address] [place] [address]Dr. Farhat Leal ALP [Catalytic activity/Vol] 82 U/L Normal 46-116 [facility] Comment on above: Performed By: #### B GRIT BLASTER, CMP, CRP ####[facility] Lxlxizucgv30[address] [place] [address]Dr. Farhat Leal ALT [Catalytic activity/Vol] 22 U/L Normal 16-63 [facility] Comment on above: Performed By: #### B GRIT BLASTER, CMP, CRP ####[facility] Dwptmsmhgc43[address] [place] [address]Dr. Farhat Leal Anion gap [Moles/Vol] 14.2 mmol/L Normal [facility] Comment on above: Performed By: #### B GRIT BLASTER, CMP, CRP ####[facility] Rykqjwnoci45[address] [place], [place] [address]Dr. Farhat Leal AST [Catalytic activity/Vol] 35 U/L Normal 15-37 [facility] Comment on above: Performed By: #### B GRIT BLASTER, CMP, CRP ####[facility] Juguwwnusi7866[address] [place], [place] [address]Dr. Farhat Leal Bilirubin [Mass/Vol] 0.7 mg/dL Normal 0.2-1.0 [facility] Comment on above: Performed By: #### B GRIT BLASTER, CMP, CRP ####[facility] Ovjmngwwjy6778[address] [place], [place] [address]Dr. Farhat Leal Calcium [Mass/Vol] 8.2 mg/dL Critically low 8.5-10.1 [facility] Comment on above: Performed By: #### B GRIT BLASTER, CMP, CRP ####[facility] Necbvuerhl3499[address] [place], [place] [address]Dr. Farhat Leal Chloride [Moles/Vol] 99 mmol/L Normal 98-107 [facility] Comment on above: Performed By: #### B GRIT BLASTER, CMP, CRP ####[facility] Ctfpgakczs7[address] [place] [address]Dr. Farhat Leal CO2 [Moles/Vol] 22.6 mmol/L Normal 21.0-32.0 [facility] Comment on above: Performed By: #### B GRIT BLASTER, CMP, CRP ####[facility] Hpptocciup96[address] [place] [address]Dr. Farhat Leal Creatinine [Mass/Vol] 1.73 mg/dL Critically high 0.70-1.30 [facility] Comment on above: Performed By: #### B GRIT BLASTER, CMP, CRP ####[facility] Duviclzlom997[address] [place], [place] [address]Dr. Farhat Leal EGFR-AF KITTITIAN 47 mL/min/1.73m2 Critically low >=60 [facility] Comment on above: Performed By: #### B GRIT BLASTER, CMP, CRP ####[facility] Fhirdqnpgn[address] [place], [place] [address]Dr. Farhat Leal EGFR-NON AF KITTITIAN 38 mL/min/1.73m2 Critically low >=60 [facility] Comment on above: Performed By: #### B GRIT BLASTER, CMP, CRP ####[facility] Otikhofnhi7565[address] [place], [place] [address]Dr. Farhat Leal Globulin (S) [Mass/Vol] 3.7 g/dL Normal [facility] Comment on above: Performed By: #### B GRIT BLASTER, CMP, CRP ####[facility] Chftkzbluy034[address] [place] [address]Dr. Farhat Leal Glucose [Mass/Vol] 220 mg/dL Critically high 74-106 T [facility] Comment on above: Performed By: #### B GRIT BLASTER, CMP, CRP ####[facility] Ptnxsigeru6[address] [place], [place] [address]Dr. Farhat Leal Potassium [Moles/Vol] 3.8 mmol/L Normal 3.5-5.1 [facility] Comment on above: Performed By: #### B GRIT BLASTER, CMP, CRP ####[facility] Dqkmtxopbl036[address] [place], [place] [address]Dr. Farhat Leal Protein [Mass/Vol] 5.1 g/dL Critically low 6.4-8.2 [facility] Comment on above: Performed By: #### B GRIT BLASTER, CMP, CRP ####[facility] Bsxdwkuzgn3694 [place] [address]Dr. Farhat Leal Sodium [Moles/Vol] 132 mmol/L Critically low 136-145 Th [facility] Comment on above: Performed By: #### B GRIT BLASTER, CMP, CRP ####[facility] Kfozoqrodm2298 [place] [address]Dr. Farhat Leal Urea nitrogen [Mass/Vol] 49.0 mg/dL Critically high 7.0-18.0 [facility] Comment on above: Performed By: #### B GRIT BLASTER, CMP, CRP ####[facility] Gqwfypqdja6[address] [place] [address]Dr. Farhat Leal Urea nitrogen/Creatinine [Mass ratio] 28.3 mg/mg Normal [facility] Comment on above: Performed By: #### B GRIT BLASTER, CMP, CRP ####[facility] Mizxcfkruh[address] [place] [address]Dr. Farhat Leal PROTIMEon 11-27-2021 INR Coag (PPP) [Relative time] 1.25 {INR} Normal [facility] Comment on above: Performed By: #### P T ####[facility] Kkambcuacf40[address] [place] [address]Dr. Farhat Leal INR GUIDELINES SEE BELOW Normal [facility] Comment on above: Result Comment: MALINA RED INR: 2.0 - 3.0 CONDITIONS NOT LISTED BELOW 2.5 - 3.5 FOR PROSTHETIC HEART VALVE REPLACEMENT 2.5 - 3.5 RECURRENT THROMBOSIS Performed By: #### P T ####[facility] Tvsyybcpim9[address] [place], [place] [address]Dr. Farhat Leal PT Coag (PPP) [Time] 13.3 s Critically high 9.0-11.6 [facility] Comment on above: Performed By: #### P T ####[facility] Ydponvbtts4666[address] [place], [place] [address]Dr. Farhat Leal SED RATE WESTERGRENon 2021 SED RATE 60 mm/hr Critically high <=20 [facility] Comment on above: Performed By: #### S EDR ####[facility] Ubunfbiwek[address] [place] [address]Dr. Farhat Leal VANCOMYCIN TROUGHon 11-28-19 VANCOMYCIN TROUGH 21.2 ug/ml Critically high 5.0-20.0 Th e [facility] Comment on above: Performed By: #### V ANCT ####[facility] Dbtfvqeakj400[address] [place], [place] [address]Dr. Farhat Leal XR CHEST 1 Von 11-27-2021 XR CHEST 1 V Normal [facility] BNPon 11-26-2021 Natriuretic peptide B (Bld) [Mass/Vol] 49965.0 pg/mL Critically high <=1,800.0 [facility] Comment on above: Performed By: #### B GRIT BLASTER, CRP, CMP ####[facility] Vdartpppiv25[address] [place], [place] [address]Dr. Farhat Leal CBC AUTO DIFFon 11-26-2021 BASO # 0.0 103/ul Normal 0.0-0.1 [facility] Comment on above: Performed By: #### C BC ####[facility] Gcbhnuydoa2[address] [place], [place] [address]Dr. Farhat Elvis Basophils/100 WBC (Bld) 0.2 % Normal 0.2-2.0 [facility] Comment on above: Performed By: #### C BC ####[facility] Jxmkdmlfvh119[address] [place], [place] [address]Dr. Farhat Leal EO # 0.0 103/ul Normal 0.0-0.7 [facility] Comment on above: Performed By: #### C BC ####[facility] Fldjqoihao188[address] [place], [place] [address]Dr. Farhat Elvis Eosinophils/100 WBC (Bld) 0.3 % Critically low 0.9-7.0 [facility] Comment on above: Performed By: #### C BC ####[facility] Ngitulklpa[address] [place], [place] [address]Dr. Farhat Leal Erythrocyte distribution width (RBC) [Ratio] 13.9 % Normal 11.0-15.0 [facility] Comment on above: Performed By: #### C BC ####[facility] Ftimytbtfp6252 [place] [address]Dr. Farhat Leal Hematocrit (Bld) [Volume fraction] 27.3 % Critically low 42.0-54.0 [facility] Comment on above: Performed By: #### C BC ####[facility] Ahcxbtdyek9450 [place] [address]Dr. Farhat Leal Hemoglobin (Bld) [Mass/Vol] 8.8 g/dL Critically low 14.0-18.0 [facility] Comment on above: Performed By: #### C BC ####[facility] Lqkodsxmgv37[address] [place] [address]Dr. Farhat Leal IG # 0.17 10e3/ul Critically high 0.00-0.03 [facility] Comment on above: Performed By: #### C BC ####[facility] Jrgbsjjvbi7288 [place] [address]Dr. Farhat Leal IG % 1.2 % Critically high 0.0-0.5 [facility] Comment on above: Performed By: #### C BC ####[facility] Gfzqgihaka[address] [place] [address]Dr. Farhat Leal LYMPH # 0.7 103/ul Critically low 1.2-3.8 [facility] Comment on above: Performed By: #### C BC ####[facility] Jherecrzuo5682 [place] [address]Dr. Farhat Leal Lymphocytes/100 WBC (Bld) 4.8 % Critically low 20.5-60.0 [facility] Comment on above: Performed By: #### C BC ####[facility] Qxgzmqrdtn4187 [place] [address]Dr. Farhat Leal MANUAL DIFF REQ NO Normal [facility] Comment on above: Performed By: #### C BC ####[facility] Baymdchdek7[address] [place], [place] [address]Dr. Farhat Leal MCH (RBC) [Entitic mass] 29.9 pg Normal 25.9-34.0 [facility] Comment on above: Performed By: #### C BC ####[facility] K[address]gdwmaey67[address] [place] [id number]. Farhat Leal MCHC (RBC) [Mass/Vol] 32.2 g/dL Normal 29.9-35.2 [facility] Comment on above: Performed By: #### C BC ####[facility] Lykqlxvbeh5313 [place] [address]Dr. Farhat Leal MCV (RBC) [Entitic vol] 92.9 fL Normal 80.0-94.0 [facility] Comment on above: Performed By: #### C BC ####[facility] Urlgqjxmdt0836 [place] [address]Dr. Farhat Leal MONO # 1.3 103/ul Critically high 0.3-0.8 [facility] Comment on above: Performed By: #### C BC ####[facility] Funcriqoap37[address] [place] [address]Dr. Farhat Leal Monocytes/100 WBC (Bld) 9.6 % Normal 1.7-12.0 [facility] Comment on above: Performed By: #### C BC ####[facility] L[address]jtohirpe14[address] [place] [address]Dr. Farhat Leal NEUT # 11.4 103/ul Critically high 1.4-6.5 [facility] Comment on above: Performed By: #### C BC ####[facility] Yxtytweiig0830 [place] [id number]. Fahrat Elvis Neutrophils/100 WBC (Bld) 83.9 % Critically high 43.0-75.0 [facility] Comment on above: Performed By: #### C BC ####[facility] Hfwdqdxnpc7230 [place] [address]Dr. Farhat Leal Platelet mean volume (Bld) [Entitic vol] 9.6 fL Normal 9.5-13.5 [facility] Comment on above: Performed By: #### C BC ####[facility] Ytroardzuc9954 [place] [id number]. Farhat Leal PLT 395 103/ul Normal 150-450 [facility] Comment on above: Performed By: #### C BC ####[facility] Sdcoijzlho9[address] [place] [id number]. Farhat Leal RBC 2.94 106/ul Critically low 4.70-6.10 [facility] Comment on above: Performed By: #### C BC ####[facility] Ugalnhjbpt5243 [place] [id number]. Farhat Leal WBC 13.6 103/ul Critically high 4.0-11.0 [facility] Comment on above: Performed By: #### C BC ####[facility] Kdespelgxw1158 [place] [address]Dr. Farhat Leal CRPon 11-26-2021 CRP [Mass/Vol] mg/L Critically high <=1.0 [facility] Comment on above: Performed By: #### B GRIT BLASTER, CRP, CMP ####[facility] Wgsudxqhdh5786 [place] [address]Dr. Farhat Leal PROF 14(COMP METB)on 022 Albumin [Mass/Vol] 1.5 g/dL Critically low 3.4-5.0 [facility] Comment on above: Performed By: #### B GRIT BLASTER, CRP, CMP ####[facility] Nfycnqypqj3560 [place] [address]Dr. Farhat Leal Albumin/Globulin [Mass ratio] 0.4 {ratio} Normal [facility] Comment on above: Performed By: #### B GRIT BLASTER, CRP, CMP ####[facility] Njjpnlxnmz3213 [place] [address]Dr. Farhat Leal ALP [Catalytic activity/Vol] 88 U/L Normal 46-116 [facility] Comment on above: Performed By: #### B GRIT BLASTER, CRP, CMP ####[facility] Iwnhdvsxrq9483 [place] [address]Dr. Farhat Leal ALT [Catalytic activity/Vol] 29 U/L Normal 16-63 [facility] Comment on above: Performed By: #### B GRIT BLASTER, CRP, CMP ####[facility] Tqgzpkgxau5558 [place] [address]Dr. Farhat Leal Anion gap [Moles/Vol] 13.3 mmol/L Normal [facility] Comment on above: Performed By: #### B GRIT BLASTER, CRP, CMP ####[facility] Obpsfuytjj9833 [place] [address]Dr. Farhat Leal AST [Catalytic activity/Vol] 32 U/L Normal 15-37 [facility] Comment on above: Performed By: #### B GRIT BLASTER, CRP, CMP ####[facility] Nmwdfooweo9[address] [place], [place] [address]Dr. Farhat Leal Bilirubin [Mass/Vol] 0.6 mg/dL Normal 0.2-1.0 [facility] Comment on above: Performed By: #### B GRIT BLASTER, CRP, CMP ####[facility] Wvjuwmtzlo8468[address] [place], [place] [address]Dr. Farhat Leal Calcium [Mass/Vol] 8.0 mg/dL Critically low 8.5-10.1 [facility] Comment on above: Performed By: #### B GRIT BLASTER, CRP, CMP ####[facility] Aiwtdnaujt5486[address] [place], [place] [address]Dr. Farhat Leal Chloride [Moles/Vol] 98 mmol/L Normal 98-107 [facility] Comment on above: Performed By: #### B GRIT BLASTER, CRP, CMP ####[facility] Lievqvuuxb067[address] [place], [place] [address]Dr. Farhat Leal CO2 [Moles/Vol] 23.7 mmol/L Normal 21.0-32.0 [facility] Comment on above: Performed By: #### B GRIT BLASTER, CRP, CMP ####[facility] Pylshdowio3517[address] [place], [place] [address]Dr. Farhat Leal Creatinine [Mass/Vol] 2.08 mg/dL Critically high 0.70-1.30 [facility] Comment on above: Performed By: #### B GRIT BLASTER, CRP, CMP ####[facility] Eowqzudufg1730 [place] [address]Dr. Farhat Leal EGFR-AF KITTITIAN 38 mL/min/1.73m2 Critically low >=60 [facility] Comment on above: Performed By: #### B GRIT BLASTER, CRP, CMP ####[facility] Qmktxpmvra8355[address] [place], [place] [address]Dr. Farhat Leal EGFR-NON AF KITTITIAN 31 mL/min/1.73m2 Critically low >=60 [facility] Comment on above: Performed By: #### B GRIT BLASTER, CRP, CMP ####[facility] Vqmmqhvask537[address] [place], [place] [address]Dr. Farhat Leal Globulin (S) [Mass/Vol] 3.7 g/dL Normal [facility] Comment on above: Performed By: #### B GRIT BLASTER, CRP, CMP ####[facility] Ufyskjucmo925[address] [place], [place] [address]Dr. Farhat Leal Glucose [Mass/Vol] 315 mg/dL Critically high 74-106 T [facility] Comment on above: Performed By: #### B GRIT BLASTER, CRP, CMP ####[facility] Cbdnjtkzpx0609[address] [place], [place] [address]Dr. Farhat Leal Potassium [Moles/Vol] 4.0 mmol/L Normal 3.5-5.1 [facility] Comment on above: Performed By: #### B GRIT BLASTER, CRP, CMP ####[facility] Ysyuqetifa1329[address] [place], [place] [address]Dr. Farhat Leal Protein [Mass/Vol] 5.2 g/dL Critically low 6.4-8.2 Th [facility] Comment on above: Performed By: #### B GRIT BLASTER, CRP, CMP ####[facility] Kyamlbkghf907[address] [place], [place] [address]Dr. Farhat Leal Sodium [Moles/Vol] 131 mmol/L Critically low 136-145 Th [facility] Comment on above: Performed By: #### B GRIT BLASTER, CRP, CMP ####[facility] Edxonrdeff8906[address] [place], [place] [address]Dr. Madelynlorri Leal Urea nitrogen [Mass/Vol] 50.0 mg/dL Critically high 7.0-18.0 [facility] Comment on above: Performed By: #### B GRIT BLASTER, CRP, CMP ####[facility] Zhnoczzxjp0267[address] [place], [place] [address]Dr. Farhat Leal Urea nitrogen/Creatinine [Mass ratio] 24.0 mg/mg Normal [facility] Comment on above: Performed By: #### B GRIT BLASTER, CRP, CMP ####[facility] Gwsrqjqrdm307[address] [place], [place] [address]Dr. Farhat Leal PROTIMEon 11-26-2021 INR Coag (PPP) [Relative time] 1.31 {INR} Normal [facility] Comment on above: Performed By: #### P T ####[facility] Yfntktemam466[address] [place], [place] [address]Dr. Farhat Leal INR GUIDELINES SEE BELOW Normal [facility] Comment on above: Result Comment: MALINA RED INR: 2.0 - 3.0 CONDITIONS NOT LISTED BELOW 2.5 - 3.5 FOR PROSTHETIC HEART VALVE REPLACEMENT 2.5 - 3.5 RECURRENT THROMBOSIS Performed By: #### P T ####[facility] Xxlexmdnov74[address] [place], [place] [address]Dr. Farhat Leal PT Coag (PPP) [Time] 13.9 s Critically high 9.0-11.6 [facility] Comment on above: Performed By: #### P T ####[facility] Wqjrllczbr7[address] [place], [place] [address]Dr. Farhat Leal SED RATE WESTERGRENon 2021 SED RATE 87 mm/hr Critically high <=20 [facility] Comment on above: Performed By: #### S EDR ####[facility] Vhesqvqkly4[address] [place], [place] [address]Dr. Farhat Leal BNPon 11-25-2021 Natriuretic peptide B (Bld) [Mass/Vol] 89977.0 pg/mL Critically high <=1,800.0 [facility] Comment on above: Performed By: #### C MP, BNP, CRP ####[facility] Ecpkphjfgs126838 [address] [place], [place] [address]Dr. Farhat Leal CBC AUTO DIFFon 11-25-2021 BASO # 0.0 103/ul Normal 0.0-0.1 [facility] Comment on above: Performed By: #### C BC ####[facility] [address] [place] [address]Dr. Farhat Leal Basophils/100 WBC (Bld) 0.4 % Normal 0.2-2.0 [facility] Comment on above: Performed By: #### C BC ####[facility] Pgpodsblny62[address] [place], [place] [address]Dr. Farhat Leal EO # 0.1 103/ul Normal 0.0-0.7 [facility] Comment on above: Performed By: #### C BC ####[facility] Ywnxlpyxrr8076[address] [place], [place] [address]Dr. Farhat Leal Eosinophils/100 WBC (Bld) 1.2 % Normal 0.9-7.0 [facility] Comment on above: Performed By: #### C BC ####[facility] Tjjdgaprxa16[address] [place], [place] [address]Dr. Farhat Leal Erythrocyte distribution width (RBC) [Ratio] 13.7 % Normal 11.0-15.0 [facility] Comment on above: Performed By: #### C BC ####[facility] Wmlhvtdnha86[address] [place], [place] [address]Dr. Farhat Leal Hematocrit (Bld) [Volume fraction] 29.6 % Critically low 42.0-54.0 [facility] Comment on above: Performed By: #### C BC ####[facility] Slrffzkabl3127[address] [place], [place] [address]Dr. Farhat Leal Hemoglobin (Bld) [Mass/Vol] 9.3 g/dL Critically low 14.0-18.0 [facility] Comment on above: Performed By: #### C BC ####[facility] Lmphmroxlk0147[address] [place], [place] [address]Dr. Farhat Leal IG # 0.15 10e3/ul Critically high 0.00-0.03 [facility] Comment on above: Performed By: #### C BC ####[facility] Tnxjvhcvac[address] [place], [place] [address]Dr. Farhat Leal IG % 1.4 % Critically high 0.0-0.5 [facility] Comment on above: Performed By: #### C BC ####[facility] [address]fe[address] [place] [address]Dr. Farhat Leal LYMPH # 0.8 103/ul Critically low 1.2-3.8 [facility] Comment on above: Performed By: #### C BC ####[facility] Lhwxmsfniy[address] [place] [address]Dr. Farhat Leal Lymphocytes/100 WBC (Bld) 7.3 % Critically low 20.5-60.0 [facility] Comment on above: Performed By: #### C BC ####[facility] [address]inmvelb[address] [place] [address]Dr. Farhat Leal MANUAL DIFF REQ NO Normal [facility] Comment on above: Performed By: #### C BC ####[facility] Touugrvkpq[address] [place] [address]Dr. Farhat Elvis MCH (RBC) [Entitic mass] 29.3 pg Normal 25.9-34.0 [facility] Comment on above: Performed By: #### C BC ####[facility] Dhfisswutp06[address] [place] [address]Dr. Farhat Elvis MCHC (RBC) [Mass/Vol] 31.4 g/dL Normal 29.9-35.2 [facility] Comment on above: Performed By: #### C BC ####[facility] Dhcpuydyqq60[address] [place] [address]Dr. Farhat Leal MCV (RBC) [Entitic vol] 93.4 fL Normal 80.0-94.0 [facility] Comment on above: Performed By: #### C BC ####[facility] Tofroazsnm[address] [place] [address]Dr. Farhat Leal MONO # 1.3 103/ul Critically high 0.3-0.8 [facility] Comment on above: Performed By: #### C BC ####[facility] Lvammlseth5[address] [place] [address]Dr. Farhat Leal Monocytes/100 WBC (Bld) 12.3 % Critically high 1.7-12.0 [facility] Comment on above: Performed By: #### C BC ####[facility] Rwcmzdtgqj[address] [place] [address]Dr. Farhat Leal NEUT # 8.4 103/ul Critically high 1.4-6.5 [facility] Comment on above: Performed By: #### C BC ####[facility] Jruxtwcjpu4[address] [place] [address]Dr. Farhat Leal Neutrophils/100 WBC (Bld) 77.4 % Critically high 43.0-75.0 [facility] Comment on above: Performed By: #### C BC ####[facility] Mlzdxltqbq6[address] [place] [address]Dr. Farhat Leal Platelet mean volume (Bld) [Entitic vol] 9.8 fL Normal 9.5-13.5 [facility] Comment on above: Performed By: #### C BC ####[facility] Yylwljdawr1904 [place] [address]Dr. Farhat Leal PLT 390 103/ul Normal 150-450 [facility] Comment on above: Performed By: #### C BC ####[facility] Tlyrbkbhsg73[address] [place] [address]Dr. Farhat Leal RBC 3.17 106/ul Critically low 4.70-6.10 [facility] Comment on above: Performed By: #### C BC ####[facility] Pnaekkqkgb55[address] [place] [address]Dr. Farhat Leal WBC 10.9 103/ul Normal 4.0-11.0 [facility] Comment on above: Performed By: #### C BC ####[facility] Qkreopftzg9459 [place] [address]Dr. Farhat Leal CRPon 11-25-2021 CRP 27.2 mg/dL Critically high <=1.0 [facility] Comment on above: Performed By: #### C MP, BNP, CRP ####[facility] Ekiughyqdo[address] [place] [address]Dr. Farhat Leal PROF 14(COMP METB)on 022 Albumin [Mass/Vol] 1.5 g/dL Critically low 3.4-5.0 [facility] Comment on above: Performed By: #### C MP, BNP, CRP ####[facility] Kdmmcumdeq[address] [place] [address]Dr. Farhat Leal Albumin/Globulin [Mass ratio] 0.4 {ratio} Normal [facility] Comment on above: Performed By: #### C MP, BNP, CRP ####[facility] Wtipnrpuio65[address] [place] [address]Dr. Farhat Leal ALP [Catalytic activity/Vol] 86 U/L Normal 46-116 [facility] Comment on above: Performed By: #### C MP, BNP, CRP ####[facility] Kwpxtwyfsj7208[address] [place], [place] [address]Dr. Farhat Leal ALT [Catalytic activity/Vol] 34 U/L Normal 16-63 [facility] Comment on above: Performed By: #### C MP, BNP, CRP ####[facility] Rrjhiwjbbl6749[address] [place], [place] [address]Dr. Farhat Leal Anion gap [Moles/Vol] 17.8 mmol/L Normal [facility] Comment on above: Performed By: #### C MP, BNP, CRP ####[facility] Dqehbtozek9577[address] [place], [place] [address]Dr. Farhat Leal AST [Catalytic activity/Vol] 48 U/L Critically high 15-37 [facility] Comment on above: Performed By: #### C MP, BNP, CRP ####[facility] Rrixjeeypc69[address] [place] [address]Dr. Farhat Leal Bilirubin [Mass/Vol] 0.8 mg/dL Normal 0.2-1.0 [facility] Comment on above: Performed By: #### C MP, BNP, CRP ####[facility] Hqzamghtwp0478[address] [place], [place] [address]Dr. Farhat Leal Calcium [Mass/Vol] 8.3 mg/dL Critically low 8.5-10.1 [facility] Comment on above: Performed By: #### C MP, BNP, CRP ####[facility] Zsiqouxrqw6032 [place] [address]Dr. Farhat Leal Chloride [Moles/Vol] 97 mmol/L Critically low 98-107 [facility] Comment on above: Performed By: #### C MP, BNP, CRP ####[facility] Oyhtjgevkm3874 [place] [address]Dr. Farhat Leal CO2 [Moles/Vol] 23.0 mmol/L Normal 21.0-32.0 [facility] Comment on above: Performed By: #### C MP, BNP, CRP ####[facility] Lbgjsqsjyg1222[address] [place], [place] [address]Dr. Farhat Leal Creatinine [Mass/Vol] 1.68 mg/dL Critically high 0.70-1.30 [facility] Comment on above: Performed By: #### C MP, BNP, CRP ####[facility] Ztelgpywnf068038 [address] [place], [place] [address]Dr. Farhat Leal EGFR-AF KITTITIAN 48 mL/min/1.73m2 Critically low >=60 [facility] Comment on above: Performed By: #### C MP, BNP, CRP ####[facility] Vkfyjmhqjh362[address] [place], [place] [address]Dr. Farhat Leal EGFR-NON AF KITTITIAN 40 mL/min/1.73m2 Critically low >=60 [facility] Comment on above: Performed By: #### C MP, BNP, CRP ####[facility] Wepxikdzzw263638 [address] [place], [place] [address]Dr. Farhat Leal Globulin (S) [Mass/Vol] 3.9 g/dL Normal [facility] Comment on above: Performed By: #### C MP, BNP, CRP ####[facility] Amgfjdzojc992038 [address] [place], [place] [address]Dr. Madelynlorri Leal Glucose [Mass/Vol] 282 mg/dL Critically high 74-106 T [facility] Comment on above: Performed By: #### C MP, BNP, CRP ####[facility] Txysjwfhik8238 [place] [address]Dr. Farhat Leal Potassium [Moles/Vol] 4.8 mmol/L Normal 3.5-5.1 [facility] Comment on above: Performed By: #### C MP, BNP, CRP ####[facility] Cxltilaoop1903 [place] [address]Dr. Farhat Leal Protein [Mass/Vol] 5.4 g/dL Critically low 6.4-8.2 [facility] Comment on above: Performed By: #### C MP, BNP, CRP ####[facility] Jnifxjlwoo5146[address] [place], [place] [address]Dr. Farhat Leal Sodium [Moles/Vol] 133 mmol/L Critically low 136-145 Th [facility] Comment on above: Performed By: #### C MP, BNP, CRP ####[facility] Fjlmgmqegb0768[address] [place], [place] [address]Dr. Farhat Leal Urea nitrogen [Mass/Vol] 40.0 mg/dL Critically high 7.0-18.0 [facility] Comment on above: Performed By: #### C MP, BNP, CRP ####[facility] Bojbimoyok9640[address] [place], [place] [address]Dr. Farhat Leal Urea nitrogen/Creatinine [Mass ratio] 23.8 mg/mg Normal [facility] Comment on above: Performed By: #### C MP, BNP, CRP ####[facility] Rikzsfqopo5799[address] [place], [place] [address]Dr. Farhat Leal PROTIMEon 11-25-2021 INR Coag (PPP) [Relative time] 1.48 {INR} Normal [facility] Comment on above: Performed By: #### P T ####[facility] Lpdexkrteb0594[address] [place], [place] [address]Dr. Farhat Leal INR GUIDELINES SEE BELOW Normal [facility] Comment on above: Result Comment: MALINA RED INR: 2.0 - 3.0 CONDITIONS NOT LISTED BELOW 2.5 - 3.5 FOR PROSTHETIC HEART VALVE REPLACEMENT 2.5 - 3.5 RECURRENT THROMBOSIS Performed By: #### P T ####[facility] Gtttnbnsij039[address] [place], [place] [address]Dr. Madelynlorri Leal PT Coag (PPP) [Time] 15.6 s Critically high 9.0-11.6 [facility] Comment on above: Performed By: #### P T ####[facility] Vfclcreeno027[address] [place] [address]Dr. Farhat Elvis SED RATE WESTERGRENon 2021 SED RATE 76 mm/hr Critically high <=20 [facility] Comment on above: Performed By: #### S EDR ####[facility] Uruclgixrm[address] [place] [address]Dr. Farhat Elvis BNPon 11-24-2021 Natriuretic peptide B (Bld) [Mass/Vol] 71709.0 pg/mL Critically high <=1,800.0 [facility] Comment on above: Performed By: #### B GRIT BLASTER, CMP, CRP ####[facility] Jygoqrjwgb64[address] [place] [address]Dr. Madelynlorri Leal CBC AUTO DIFFon 11-24-2021 BASO # 0.0 103/ul Normal 0.0-0.1 [facility] Comment on above: Performed By: #### C BC ####[facility] Qcahxvbyvo83[address] [place] [address]Dr. Farhat Leal Basophils/100 WBC (Bld) 0.3 % Normal 0.2-2.0 [facility] Comment on above: Performed By: #### C BC ####[facility] Qxsuqgmomp2639 [place] [address]Dr. Farhat Leal EO # 0.2 103/ul Normal 0.0-0.7 [facility] Comment on above: Performed By: #### C BC ####[facility] Koupkhlpci8620 [place] [address]Dr. Farhat Leal Eosinophils/100 WBC (Bld) 1.2 % Normal 0.9-7.0 [facility] Comment on above: Performed By: #### C BC ####[facility] Nchldwwvbr5016 [place] [address]Dr. Farhat Leal Erythrocyte distribution width (RBC) [Ratio] 13.5 % Normal 11.0-15.0 [facility] Comment on above: Performed By: #### C BC ####[facility] Gbygvtqwrb9624 [place] [address]DrSkylar Leal Hematocrit (Bld) [Volume fraction] 31.1 % Critically low 42.0-54.0 [facility] Comment on above: Performed By: #### C BC ####[facility] Tyexkaebwv8188 [place] [address]DrSkylar Leal Hemoglobin (Bld) [Mass/Vol] 10.0 g/dL Critically low 14.0-18.0 [facility] Comment on above: Performed By: #### C BC ####[facility] Vxcsmtxzhc1509[address] [place], [place] [address]DrSkylar Leal IG # 0.13 10e3/ul Critically high 0.00-0.03 [facility] Comment on above: Performed By: #### C BC ####[facility] Zxssfrjwty7798[address] [place], [place] [address]DrSkylar Leal IG % 1.0 % Critically high 0.0-0.5 [facility] Comment on above: Performed By: #### C BC ####[facility] Igjnpgmcjv3366[address] [place], [place] [address]DrSkylar Leal LYMPH # 0.7 103/ul Critically low 1.2-3.8 [facility] Comment on above: Performed By: #### C BC ####[facility] Rnystvsfmj3944[address] [place], [place] [address]DrSkylar Leal Lymphocytes/100 WBC (Bld) 4.9 % Critically low 20.5-60.0 [facility] Comment on above: Performed By: #### C BC ####[facility] Fenddihbco3050[address] [place], [place] [address]DrSkylar Leal MANUAL DIFF REQ NO Normal [facility] Comment on above: Performed By: #### C BC ####[facility] Cgbwduuwxp3854[address] [place], [place] [address]DrSkylar Leal MCH (RBC) [Entitic mass] 29.6 pg Normal 25.9-34.0 [facility] Comment on above: Performed By: #### C BC ####[facility] Wycxycijox5937 [place] [address]DrSkylar Leal MCHC (RBC) [Mass/Vol] 32.2 g/dL Normal 29.9-35.2 [facility] Comment on above: Performed By: #### C BC ####[facility] Ljexrhtbqr0984 [place] [address]DrSkylar Leal MCV (RBC) [Entitic vol] 92.0 fL Normal 80.0-94.0 [facility] Comment on above: Performed By: #### C BC ####[facility] Aovuvbtenz851638 [address] [place], [place] [address]DrSkylar Leal MONO # 1.3 103/ul Critically high 0.3-0.8 [facility] Comment on above: Performed By: #### C BC ####[facility] Mbgseomhlu3707[address] [place], [place] [address]DrSkylar Leal Monocytes/100 WBC (Bld) 9.6 % Normal 1.7-12.0 [facility] Comment on above: Performed By: #### C BC ####[facility] Omegpsaiqa1524[address] [place], [place] [address]DrSkylar Leal NEUT # 11.2 103/ul Critically high 1.4-6.5 [facility] Comment on above: Performed By: #### C BC ####[facility] Ienfjzbptp6048[address] [place], [place] [address]DrSkylar Leal Neutrophils/100 WBC (Bld) 83.0 % Critically high 43.0-75.0 [facility] Comment on above: Performed By: #### C BC ####[facility] Gmwxanncqe846[address] [place], [place] [address]DrSkylar Leal Platelet mean volume (Bld) [Entitic vol] 9.5 fL Normal 9.5-13.5 [facility] Comment on above: Performed By: #### C BC ####[facility] Wtifflktzp476538 [address] [place], [place] [address]Dr. Farhat Leal PLT 395 103/ul Normal 150-450 [facility] Comment on above: Performed By: #### C BC ####[facility] Dxtdbnhtqm14[address] [place] [id number]. Farhat Leal RBC 3.38 106/ul Critically low 4.70-6.10 [facility] Comment on above: Performed By: #### C BC ####[facility] Qiegmeqvgv9102 [place] [id number]. Farhat Leal WBC 13.4 103/ul Critically high 4.0-11.0 [facility] Comment on above: Performed By: #### C BC ####[facility] Xfvfymssil7101 [place] [id number]. Farhat Leal CRPon 11-24-2021 CRP 27.8 mg/dL Critically high <=1.0 [facility] Comment on above: Performed By: #### B GRIT BLASTER, CMP, CRP ####[facility] Tjhoohnksn[address] [place], [place] [id number]. Farhat Leal CULTURE ANAEROBICon 11-25-19 22 CULTURE ANAEROBIC Culture Observations : NO GROWTH OF ANAEROBES AT 72 HOURS. [facility] Comment on above: Performed By: #### A NACX ####[facility] Hieinqlhcs[address] [place], [place] [id number]. Farhat Leal CULTURE ANAEROBIC Culture Observations : NO GROWTH OF ANAEROBES AT 72 HOURS. [facility] Comment on above: Performed By: #### A NACX ####[facility] Agxbwsfsbt7952 [place] [id number]. Farhat Leal CULTURE ANAEROBIC Culture Observations : No growth of anaerobes at 72 hours. [facility] Comment on above: Performed By: #### A NACX ####[facility] Ynsvevsufg1913[address] [place], [place] [id number]. Farhat Leal CULTURE ANAEROBIC Culture Observations : No growth of anaerobes at 72 hours. [facility] Comment on above: Performed By: #### A NACX ####[facility] Bsithylgou8[address] [place], [place] [id number]. Farhat Leal CULTURE URINEon 11-24-2021 CULTURE URINE Culture Observations : NO GROWTH. Normal [facility] Comment on above: Performed By: #### U RCX ####[facility] Epohpwcufr367338 [address] [place], [place] [address]Dr. Farhat Leal ECHOCARDIO M/2D COMPLETEon 1 ECHOCARDIO M/2D COMPLETE Normal [facility] ER URINE PROFILEon Bilirubin Ql (U) Negative Normal NEGATIVE [facility] Comment on above: Performed By: #### E RUR ####[facility] Nppilypzpc7225[address] [place], [place] [address]Dr. Farhat Leal Clarity (U) CLEAR Normal CLEAR [facility] Comment on above: Performed By: #### E RUR ####[facility] Xolculenkd156738 [address] [place], [place] [address]Dr. Farhat Leal Color (U) YELLOW Normal YELLOW [facility] Comment on above: Performed By: #### E RUR ####[facility] Lminmnlode717[address] [place], [place] [address]Dr. Farhat Leal ERUAHD A micrscopic examination will be performed if indicated. Normal [facility] Comment on above: Performed By: #### E RUR ####[facility] Dasvngmxkm494338 [address] [place], [place] [address]Dr. Madelynlorri Elvis Glucose Ql (U) Negative Normal NEGATIVE [facility] Comment on above: Performed By: #### E RUR ####[facility] Epmqkcjdzq9040[address] [place], [place] [address]Dr. Farhat Leal Hemoglobin Ql (U) Negative Normal NEGATIVE [facility] Comment on above: Performed By: #### E RUR ####[facility] Plkjtksrwy8508[address] [place], [place] [address]Dr. Farhat Leal Ketones Ql (U) TRACE Abnormal NEGATIVE [facility] Comment on above: Performed By: #### E RUR ####[facility] Rogayfgebz06[address] [place], [place] [address]Dr. Farhat Leal LEUKOCYTES Negative Normal NEGATIVE [facility] Comment on above: Performed By: #### E RUR ####[facility] Awmeppdxws28[address] [place] [address]Dr. Farhat Leal Nitrite Ql (U) Negative Normal NEGATIVE [facility] Comment on above: Performed By: #### E RUR ####[facility] Pvgsichsgb2017[address] [place], [place] [address]Dr. Farhat Leal pH (U) 5.5 [pH] Normal 5-9 [facility] Comment on above: Performed By: #### E RUR ####[facility] Nbbfyiyssn2588[address] [place], [place] [address]Dr. Farhat Leal SPEC GRAVITY 1.015 Normal 1.005-<=1.02 5 [facility] Comment on above: Performed By: #### E RUR ####[facility] Qomaidkzii7620[address] [place], [place] [address]Dr. Farhat Leal UA PROTEIN Negative Normal NEGATIVE/ TRACE [facility] Comment on above: Performed By: #### E RUR ####[facility] Ljosrlyzzk8559[address] [place], [place] [address]Dr. Farhat Leal UR MICRO IND NOT INDICATED Normal [facility] Comment on above: Performed By: #### E RUR ####[facility] Cuglppoyak8027[address] [place], [place] [address]Dr. Farhat Leal Urobilinogen Qn (U) 0.2 {Boyd'U}/dL Normal 0.2 - 1. 0 [facility] Comment on above: Performed By: #### E RUR ####[facility] Ujndikoubm5632[address] [place], [place] [address]Dr. Farhat Leal GRAM STAINon 11-24-2021 DIPHTHEROIDS Normal [facility] Comment on above: Performed By: #### G STAIN ####[facility] Klbkwpcgid3858[address] [place], [place] [address]Dr. Farhat Leal EPITHELIALS Normal [facility] Comment on above: Performed By: #### G STAIN ####[facility] Fozbnebeal9[address] [place], [place] [address]Dr. Farhat Leal FUNGAL ELEMENTS Normal [facility] Comment on above: Performed By: #### G STAIN ####[facility] Sriftvslhw6814 [place] [id number]. Farhat Leal GRAM NEG BACILLI Normal [facility] Comment on above: Performed By: #### G STAIN ####[facility] Rivfxkaxtw5475 [place] [address]Dr. Farhat Leal GRAM NEG DIPPLOCOCCI Normal [facility] Comment on above: Performed By: #### G STAIN ####[facility] Ylcedvipkp2396 [place] [address]Dr. Farhat Leal GRAM POS BACILLI Normal [facility] Comment on above: Performed By: #### G STAIN ####[facility] Czvddakuei7950[address] [place], [place] [address]Dr. Farhat Leal GRAM POSITIVE COCCI FEW Normal The [facility] Comment on above: Performed By: #### G STAIN ####[facility] Gbpvtpjfet3689[address] [place], [place] [address]Dr. Farhat Leal GRAM STAIN SOURCE RT ACHILLES TENDON Normal [facility] Comment on above: Performed By: #### G STAIN ####[facility] Kqjzpujlom8464[address] [place], [place] [address]Dr. Farhat Leal GS_DIPTH Normal [facility] Comment on above: Performed By: #### G STAIN ####[facility] Ugnfxiqcga7946[address] [place], [place] [address]Dr. Farhat Leal WBC RARE Normal [facility] Comment on above: Performed By: #### G STAIN ####[facility] Ajnsdnnpcl[address] [place], [place] [address]Dr. Farhat Leal COMMENTS NO ORGANISMS OBSERVED Normal [facility] Comment on above: Performed By: #### G STAIN ####[facility] Mrxrqfukbz0047 [place] [address]Dr. Farhat Leal DIPHTHEROIDS Normal [facility] Comment on above: Performed By: #### G STAIN ####[facility] Uzqgstoyww9168 [place] [address]Dr. Farhat Leal EPITHELIALS Normal [facility] Comment on above: Performed By: #### G STAIN ####[facility] Bginlwktts6105 [place] [address]Dr. Farhat Leal FUNGAL ELEMENTS Normal [facility] Comment on above: Performed By: #### G STAIN ####[facility] Lrrnmibkxm9486 [place] [address]Dr. Farhat Leal GRAM NEG BACILLI Normal [facility] Comment on above: Performed By: #### G STAIN ####[facility] Taychotleb2422 [place] [address]Dr. Farhat Leal GRAM NEG DIPPLOCOCCI Normal [facility] Comment on above: Performed By: #### G STAIN ####[facility] Otocnddget706[address] [place], [place] [address]Dr. Farhat Leal GRAM POS BACILLI Normal [facility] Comment on above: Performed By: #### G STAIN ####[facility] Xfzradnlma3248[address] [place], [place] [address]Dr. Farhat Leal GRAM POSITIVE COCCI Normal The [facility] Comment on above: Performed By: #### G STAIN ####[facility] Jrpzrjrufj394[address] [place], [place] [address]Dr. Farhat Leal GRAM STAIN SOURCE RT CALCANEOUS Normal [facility] Comment on above: Performed By: #### G STAIN ####[facility] Yonkbppybv2006[address] [place], [place] [address]Dr. Farhat Leal GS_DIPTH Normal [facility] Comment on above: Performed By: #### G STAIN ####[facility] Hszennmrni6845[address] [place], [place] [address]Dr. Farhat Leal WBC RARE Normal [facility] Comment on above: Performed By: #### G STAIN ####[facility] Fiabiuxwfw3574 [place] [address]Dr. Farhat Leal DIPHTHEROIDS Normal [facility] Comment on above: Performed By: #### G STAIN ####[facility] Pdjywkgjpk5229[address] [place], [place] [address]Dr. Farhat Leal EPITHELIALS Normal [facility] Comment on above: Performed By: #### G STAIN ####[facility] Rryszkicwj[address] [place], [place] [address]Dr. Farhat Leal FUNGAL ELEMENTS Normal [facility] Comment on above: Performed By: #### G STAIN ####[facility] Esyarpkgfv[address] [place] [id number]. Farhat Leal GRAM NEG BACILLI FEW Normal [facility] Comment on above: Performed By: #### G STAIN ####[facility] Ydxiyzkzvh12[address] [place] [phone]. Farhat Leal GRAM NEG DIPPLOCOCCI Normal [facility] Comment on above: Performed By: #### G STAIN ####[facility] Pszytrfdvi38[address] [place] [address]Dr. Farhat Leal GRAM POS BACILLI Normal [facility] Comment on above: Performed By: #### G STAIN ####[facility] Goedoacods[address] [place] [address]Dr. Farhat Leal GRAM POSITIVE COCCI FEW Normal [facility] Comment on above: Performed By: #### G STAIN ####[facility] Ufnuujqlzo[address] [place], [place] [address]Dr. Farhat Leal GRAM STAIN SOURCE #2 Rt foot abscess Normal [facility] Comment on above: Performed By: #### G STAIN ####[facility] Cicghyfbqv[address] [place] [address]Dr. Farhat Leal GS_DIPTH Normal [facility] Comment on above: Performed By: #### G STAIN ####[facility] Pskdfyhezx[address] [place] [address]Dr. Farhat Leal WBC RARE Normal [facility] Comment on above: Performed By: #### G STAIN ####[facility] Cbhbnqtnbs56[address] [place] [phone]. Farhat Leal DIPHTHEROIDS Normal [facility] Comment on above: Performed By: #### G STAIN ####[facility] Zquccmdpsv16[address] [place], [place] [address]Dr. Farhat Leal EPITHELIALS Normal [facility] Comment on above: Performed By: #### G STAIN ####[facility] Ppuoqozqrc[address] [place] [address]Dr. Farhat Leal FUNGAL ELEMENTS Normal [facility] Comment on above: Performed By: #### G STAIN ####[facility] Lrpbejmstk[address] [place] [address]Dr. Farhat Leal GRAM NEG BACILLI FEW Normal [facility] Comment on above: Performed By: #### G STAIN ####[facility] Xiexoeyfoh38[address] [place] [address]Dr. Farhat Leal GRAM NEG DIPPLOCOCCI Normal [facility] Comment on above: Performed By: #### G STAIN ####[facility] Dfaeqzydza9343 [place] [address]Dr. Farhat Leal GRAM POS BACILLI Normal [facility] Comment on above: Performed By: #### G STAIN ####[facility] Mvvjzmrbtp[address] [place], [place] [address]Dr. Farhat Leal GRAM POSITIVE COCCI FEW Normal The [facility] Comment on above: Performed By: #### G STAIN ####[facility] Xldjybwuvu8[address] [place], [place] [address]Dr. Farhat Leal GRAM STAIN SOURCE #1 Rt foot abscess Normal [facility] Comment on above: Performed By: #### G STAIN ####[facility] Fviibvtqyy11[address] [place], [place] [address]Dr. Farhat Leal GS_DIPTH Normal [facility] Comment on above: Performed By: #### G STAIN ####[facility] Hbqgtkfnpz8[address] [place] [address]Dr. Farhat Leal WBC NONE SEEN Normal [facility] Comment on above: Performed By: #### G STAIN ####[facility] Xxcmlcmrfh9090 [place] [address]Dr. Farhat Leal POINT OF CARE GLUCOSEon 10-1 0 Glucose [Mass/Vol] 331 mg/dL Critically high 74-106 [facility] Comment on above: Performed By: #### P OCGLUC ####[facility] Xzoiuozysb4637 [place] [address]Dr. Farhat Leal Glucose [Mass/Vol] 236 mg/dL Critically high 74-106 [facility] Comment on above: Performed By: #### P OCGLUC ####[facility] Memgykucpr8133 [place] [address]Dr. Farhat Leal PROF 14(COMP METB)on 022 Albumin [Mass/Vol] 1.6 g/dL Critically low 3.4-5.0 [facility] Comment on above: Performed By: #### B GRIT BLASTER, CMP, CRP ####[facility] Ygaoqtainc[address] [place] [address]Dr. Farhat Leal Albumin/Globulin [Mass ratio] 0.4 {ratio} Normal [facility] Comment on above: Performed By: #### B GRIT BLASTER, CMP, CRP ####[facility] Mkgumnpmiq7128 [place] [address]Dr. Farhat Leal ALP [Catalytic activity/Vol] 94 U/L Normal 46-116 [facility] Comment on above: Performed By: #### B GRIT BLASTER, CMP, CRP ####[facility] Hsifawfmxx9459 [place] [address]Dr. Farhat Leal ALT [Catalytic activity/Vol] 49 U/L Normal 16-63 [facility] Comment on above: Performed By: #### B GRIT BLASTER, CMP, CRP ####[facility] Mtuxtikeos8601 [place] [address]Dr. Farhat Leal Anion gap [Moles/Vol] 12.5 mmol/L Normal [facility] Comment on above: Performed By: #### B GRIT BLASTER, CMP, CRP ####[facility] Cvpfgombvu6300 [place] [address]Dr. Farhat Leal AST [Catalytic activity/Vol] 102 U/L Critically high 15-37 [facility] Comment on above: Performed By: #### B GRIT BLASTER, CMP, CRP ####[facility] Ocyfmdlnpt8575 [place] [address]Dr. Farhat Leal Bilirubin [Mass/Vol] 0.8 mg/dL Normal 0.2-1.0 [facility] Comment on above: Performed By: #### B GRIT BLASTER, CMP, CRP ####[facility] Kfxcunqhal3225 [place] [address]Dr. Farhat Leal Calcium [Mass/Vol] 8.4 mg/dL Critically low 8.5-10.1 [facility] Comment on above: Performed By: #### B GRIT BLASTER, CMP, CRP ####[facility] Vwewpuciad3530 [place] [address]Dr. Farhat Leal Chloride [Moles/Vol] 96 mmol/L Critically low 98-107 [facility] Comment on above: Performed By: #### B GRIT BLASTER, CMP, CRP ####[facility] Ldvibwpphv8237[address] [place], [place] [address]Dr. Madelynlorri Leal CO2 [Moles/Vol] 24.8 mmol/L Normal 21.0-32.0 [facility] Comment on above: Performed By: #### B GRIT BLASTER, CMP, CRP ####[facility] Odbxrvunwe77[address] [place], [place] [address]Dr. Madelynlorri Leal Creatinine [Mass/Vol] 1.36 mg/dL Critically high 0.70-1.30 [facility] Comment on above: Performed By: #### B GRIT BLASTER, CMP, CRP ####[facility] Sjrsvenlis8747[address] [place], [place] [address]Dr. Madelynlorri Elvis EGFR-AF KITTITIAN >60 Normal >=60 [facility] Comment on above: Performed By: #### B GRIT BLASTER, CMP, CRP ####[facility] Scwqazcohd6434[address] [place], [place] [address]Dr. Madelynlorri Leal EGFR-NON AF KITTITIAN 51 mL/min/1.73m2 Critically low >=60 [facility] Comment on above: Performed By: #### B GRIT BLASTER, CMP, CRP ####[facility] Mjzhmgpcgy3387[address] [place], [place] [address]Dr. Farhat Leal Globulin (S) [Mass/Vol] 4.1 g/dL Normal [facility] Comment on above: Performed By: #### B GRIT BLASTER, CMP, CRP ####[facility] Gapowebupf8697[address] [place], [place] [address]Dr. Farhat Leal Glucose [Mass/Vol] 204 mg/dL Critically high 74-106 T [facility] Comment on above: Performed By: #### B GRIT BLASTER, CMP, CRP ####[facility] Mrppwhkctp1886 [place] [address]Dr. Farhat Leal Potassium [Moles/Vol] 4.3 mmol/L Normal 3.5-5.1 [facility] Comment on above: Performed By: #### B GRIT BLASTER, CMP, CRP ####[facility] Hlabpddnem9925 [place] [address]Dr. Farhat Leal Protein [Mass/Vol] 5.7 g/dL Critically low 6.4-8.2 Th [facility] Comment on above: Performed By: #### B GRIT BLASTER, CMP, CRP ####[facility] Zpanjusgkl4917 [place] [address]Dr. Farhat Leal Sodium [Moles/Vol] 129 mmol/L Critically low 136-145 Th [facility] Comment on above: Performed By: #### B GRIT BLASTER, CMP, CRP ####[facility] Qofaxslagx7744[address] [place], [place] [address]Dr. Farhat Leal Urea nitrogen [Mass/Vol] 41.0 mg/dL Critically high 7.0-18.0 [facility] Comment on above: Performed By: #### B GRIT BLASTER, CMP, CRP ####[facility] Jtbqetfkni7[address] [place], [place] [address]Dr. Farhat Leal Urea nitrogen/Creatinine [Mass ratio] 30.1 mg/mg Normal [facility] Comment on above: Performed By: #### B GRIT BLASTER, CMP, CRP ####[facility] Ccogtupowl7454[address] [place], [place] [address]Dr. Farhat Leal PROTIMEon 11-24-2021 INR Coag (PPP) [Relative time] 2.20 {INR} Normal [facility] Comment on above: Performed By: #### P T ####[facility] Sszadpcqln[address] [place], [place] [address]Dr. Farhat Leal INR GUIDELINES SEE BELOW Normal [facility] Comment on above: Result Comment: MALINA RED INR: 2.0 - 3.0 CONDITIONS NOT LISTED BELOW 2.5 - 3.5 FOR PROSTHETIC HEART VALVE REPLACEMENT 2.5 - 3.5 RECURRENT THROMBOSIS Performed By: #### P T ####[facility] Ldgpufyfbr[address] [place], [place] [address]Dr. Farhat Leal PT Coag (PPP) [Time] 22.6 s Critically high 9.0-11.6 [facility] Comment on above: Performed By: #### P T ####[facility] Dapwavliuv[address]52 [place] [address]Dr. Farhat Elvis SED RATE [facility] 2021 SED RATE 80 mm/hr Critically high <=20 [facility] Comment on above: Performed By: #### S EDR ####[facility] Wzrxzqggkq6380 [place] [address]Dr. Farhat Elvis BLOOD CULTURE ID PANELon A. baumannii Not detected Normal NOT DETECTED [facility] Comment on above: Performed By: #### B CID2 ####[facility] Krtxkwnkag40[address] [place] [address]Dr. Madelynlorri Leal Bacteriodes fragilis Not detected Normal NOT DETECTED [facility] Comment on above: Performed By: #### B CID2 ####[facility] Axdvmgshfv3020 [place] [address]Dr. Farhat Elvis BCID CONTROLS PASSED Normal The [facility] Comment on above: Performed By: #### B CID2 ####[facility] Iippvnfoet3727 [place] [address]Dr. Farhat Elvis BCIDBTHD BLOOD CULTURE BOTTLE INFORMATION Normal [facility] Comment on above: Performed By: #### B CID2 ####[facility] Ohqpchizof12[address] [place], [place] [address]Dr. Farhat Elvis BCIDHD1 ANTIMICROBIAL RESISTANCE GENES Normal [facility] Comment on above: Performed By: #### B CID2 ####[facility] Wdemaoiiiy2860 [place] [address]Dr. Madelynlorri Leal BCIDHD2 SEE BELOW Normal [facility] Comment on above: Result Comment: Note : Antimicrobial resitance can occur via multiple mechanisms. A Not Detected result for the [employer] antomicrobial resistance gene assays does not indicate antimicrobial susceptibility. Subculturing is required for species identification and susceptibility testing of isolates. Performed By: #### B CID2 ####[facility] Mxcjzsfvrf4[address] [place] [phone]. Farhat Leal BCIDHD3 Positive Normal [facility] Comment on above: Performed By: #### B CID2 ####[facility] Jfnsfxlclq1853 [place] [phone]. Yilorri Leal BCIDHD4 Negative Normal [facility] Comment on above: Performed By: #### B CID2 ####[facility] Zwhdbvabmu4813 [place] [phone]. Farhat Leal BCIDHD5 YEAST Normal [facility] Comment on above: Performed By: #### B CID2 ####[facility] Harcywfixc0128 [place] [address]Dr. Farhat Leal Bottle Set: Set 1 Normal [facility] Comment on above: Performed By: #### B CID2 ####[facility] Xkqrqbghhb8983 [place] [address]Dr. Farhat Leal Bottle: Aerobic Normal [facility] Comment on above: Performed By: #### B CID2 ####[facility] Clupmzvfcf6235 [place] [address]Dr. Farhat [facility] C. neoformans/gattii Not detected Normal NOT DETECTED [facility] Comment on above: Performed By: #### B CID2 ####[facility] Kjrvtpjzoc7[address] [place], [place] [address]Dr. Yilorri Leal Disha albicans Not detected Normal NOT DETECTED [facility] Comment on above: Performed By: #### B CID2 ####[facility] Jytobqjpwm3322 [place] [address]Dr. Yilorri Leal Disha auris Not detected Normal NOT DETECTED [facility] Comment on above: Performed By: #### B CID2 ####[facility] Wupyqegsyf1701 [place] [address]Dr. Farhat Leal Disha glabrata Not detected Normal NOT DETECTED [facility] Comment on above: Performed By: #### B CID2 ####[facility] Eagqdiblws2830 [place] [address]Dr. Farhat Leal Disha Krusei Not detected Normal NOT DETECTED The [facility] Comment on above: Performed By: #### B CID2 ####[facility] Uzgupvztrf2179 [place] [address]Dr. Yilan Leal Disha Parapsilosis Not detected Normal NOT DETECTED [facility] Comment on above: Performed By: #### B CID2 ####[facility] Iswkzhnlyj5943 [place] [address]Dr. Yilan Leal Disha Tropicalis Not detected Normal NOT DETECTED [facility] Comment on above: Performed By: #### B CID2 ####[facility] Jaqjrholze506[address] [place], [place] [address]Dr. Farhat Leal CTX-M Resistant Gene Not Applicable Normal NOT DETECTE D [facility] Comment on above: Performed By: #### B CID2 ####[facility] Dxasvxjmkz3758[address] [place], [place] [address]Dr. Yilorri Leal E. Cloacae complex Not detected Normal NOT DETECTED [facility] Comment on above: Performed By: #### B CID2 ####[facility] Vgyzghpqmp614[address] [place], [place] [address]Dr. Yilan Leal E. faecalis Not detected Normal NOT DETECTED [facility] Comment on above: Performed By: #### B CID2 ####[facility] Ftvvoktlom5999[address] [place], [place] [address]Dr. Yilorri Leal E. faecium Not detected Normal NOT DETECTED [facility] Comment on above: Performed By: #### B CID2 ####[facility] Wlaazqiysr3689[address] [place], [place] [address]Dr. Yilan Leal Enterobacteriaceae Not detected Normal NOT DETECTED [facility] Comment on above: Performed By: #### B CID2 ####[facility] Qqvpbwrknp2144[address] [place], [place] [address]Dr. Yilan Leal Escherichia coli Not detected Normal NOT DETECTED [facility] Comment on above: Performed By: #### B CID2 ####[facility] Nhndssjifj7205[address] [place], [place] [address]Dr. Yilan Leal H. influenzae Not detected Normal NOT DETECTED [facility] Comment on above: Performed By: #### B CID2 ####[facility] Mmgknqflip9551 [place] [phone]. Farhat Leal IMP Resistant Gene Not Applicable Normal NOT DETECTED [facility] Comment on above: Performed By: #### B CID2 ####[facility] Brhtrkuoje0174[address] [place], [place] [address]Dr. Farhat Leal K. oxytoca Not detected Normal NOT DETECTED [facility] Comment on above: Performed By: #### B CID2 ####[facility] Gpxtkmqktm2614[address] [place], [place] [address]Dr. Farhat Leal K. pneumoniae Not detected Normal NOT DETECTED [facility] Comment on above: Performed By: #### B CID2 ####[facility] Kjhxgjmksn7157[address] [place], [place] [address]Dr. Farhat Leal Klebsiella aerogenes Not detected Normal NOT DETECTED [facility] Comment on above: Performed By: #### B CID2 ####[facility] Ahpjxpgzuc9316[address] [place], [place] [address]Dr. Farhat Elal KPC Resistant Gene Not Applicable Normal NOT DETECTED [facility] Comment on above: Performed By: #### B CID2 ####[facility] Jlckgilfau9505[address] [place], [place] [address]Dr. Madelynlorri Elvis List. monocytogenes Not detected Normal NOT DETECTED [facility] Comment on above: Performed By: #### B CID2 ####[facility] Dedotpnhko1609[address] [place], [place] [address]Dr. Farhat Leal Mcr-1 Resistant Gene Not Applicable Normal NOT DETECTE D [facility] Comment on above: Performed By: #### B CID2 ####[facility] Uznjugssbw2832 [place] [address]Dr. Madelynlan Elvis mecA/C Not Applicable Normal NOT DETECTED [facility] Comment on above: Performed By: #### B CID2 ####[facility] Fatgqhotul5177 [place] [address]Dr. Farhat Leal mecA/C MREJ Detected Abnormal NOT DETECTED [facility] Comment on above: Performed By: #### B CID2 ####[facility] Xfenqavcbi5804[address] [place], [place] [address]Dr. Farhat Leal N. meningitidis Not detected Normal NOT DETECTED The [facility] Comment on above: Performed By: #### B CID2 ####[facility] Kjnmhubkdj4022[address] [place], [place] [address]Dr. Farhat Leal NDM Resistant Gene Not Applicable Normal NOT DETECTED [facility] Comment on above: Performed By: #### B CID2 ####[facility] Msynwfiezy7849[address] [place], [place] [address]Dr. Farhat Leal Oxa-48-like Not Applicable Normal NOT DETECTED [facility] Comment on above: Performed By: #### B CID2 ####[facility] Wfwdvprbks2716[address] [place], [place] [address]Dr. Farhat Leal Proteus Not detected Normal NOT DETECTED [facility] Comment on above: Performed By: #### B CID2 ####[facility] Wnmfzgiysy401[address] [place], [place] [address]Dr. Farhat Leal Pseud. aeruginosa Not detected Normal NOT DETECTED [facility] Comment on above: Performed By: #### B CID2 ####[facility] Qleerrebqr3744[address] [place], [place] [address]Dr. Farhat Leal S. maltophilia Not detected Normal NOT DETECTED [facility] Comment on above: Performed By: #### B CID2 ####[facility] Pwzwmmtybf859[address] [place], [place] [address]Dr. Farhat Leal Salmonella Not detected Normal NOT DETECTED [facility] Comment on above: Performed By: #### B CID2 ####[facility] Iyvjimujrr294[address] [place], [place] [address]Dr. Farhat Leal Seratia marcescens Not detected Normal NOT DETECTED [facility] Comment on above: Performed By: #### B CID2 ####[facility] Fmcjcknrpv5085[address] [place], [place] [address]Dr. Farhat Leal Site: Rt Hand Normal [facility] Comment on above: Performed By: #### B CID2 ####[facility] Upzomoupej483[address] [place], [place] [address]Dr. Farhat Leal Staph. aureus Detected Abnormal NOT DETECTED [facility] Comment on above: Performed By: #### B CID2 ####[facility] Ayhqgsxivl4774 [place] [address]Dr. Farhat Leal Staph. epidermidis Not detected Normal NOT DETECTED [facility] Comment on above: Performed By: #### B CID2 ####[facility] Xpbvmmzxyf359[address] [place], [place] [address]Dr. Farhat Leal Staph. lugdunensis Not detected Normal NOT DETECTED [facility] Comment on above: Performed By: #### B CID2 ####[facility] Vsqikfxiwr5750[address] [place], [place] [address]Dr. Farhat Leal Staphylococcus Detected Abnormal NOT DETECTED [facility] Comment on above: Performed By: #### B CID2 ####[facility] Qoykueotgf6713[address] [place], [place] [address]Dr. Farhat Leal Strep. agalactiae Not detected Normal NOT DETECTED [facility] Comment on above: Performed By: #### B CID2 ####[facility] Yymaldjefy507[address] [place], [place] [address]Dr. Farhat Leal Strep. pneumoniae Not detected Normal NOT DETECTED [facility] Comment on above: Performed By: #### B CID2 ####[facility] Ghrsaprzva2829[address] [place], [place] [address]Dr. Farhat Leal Strep. pyogenes Not detected Normal NOT DETECTED The [facility] Comment on above: Performed By: #### B CID2 ####[facility] Rfkxufoffb326[address] [place], [place] [address]Dr. Farhat Leal Streptococcus Not detected Normal NOT DETECTED [facility] Comment on above: Performed By: #### B CID2 ####[facility] Kabngggadp838[address] [place], [place] [address]Dr. Farhat Leal Teodoro/B Resist. Gene Not Applicable Normal NOT DETECTED [facility] Comment on above: Performed By: #### B CID2 ####[facility] Qsxmmajhdn255[address] [place], [place] [address]Dr. Farhat Leal VIM Resistant Gene Not Applicable Normal NOT DETECTED [facility] Comment on above: Performed By: #### B CID2 ####[facility] Rkbogrtdgp6549 [place] [address]Dr. Farhat Leal BNPon 11-23-2021 Natriuretic peptide B (Bld) [Mass/Vol] 56661.0 pg/mL Critically high <=1,800.0 [facility] Comment on above: Performed By: #### C MP, CMADM, BNP ####[facility] Ccihbgnrtv0239 [place] [address]Dr. Farhat Leal CARDIAC AMANDA ADMITon 022 CK [Catalytic activity/Vol] 41 U/L Normal 39-308 [facility] Comment on above: Performed By: #### C MP, CMADM, BNP ####[facility] Jlnruuwzcf3786 [place] [address]Dr. Farhat Leal CK.MB [Mass/Vol] 0.98 ng/mL Normal <=3.60 [facility] Comment on above: Performed By: #### C MP, CMADM, BNP ####[facility] Qjzwvwnlqn7368 [place] [address]Dr. Farhat Leal HSTROP 30.1 pg/mL Normal 4.0-76.1 [facility] Comment on above: Result Comment: CUT- OFF POINTS HAVE BEEN ESTABLISHED BASED ON THE FOURTH UNIVERSAL DEFINITIONS OF MYOCARDIALINFARCTION. THE UPPER REFERENCE LIMIT (URL) OF TROPONIN, DEFINED THE 99TH PERCENTILE OFcTnI DISTRIBUTION IN A REFERENCE POPULATION, HAS BEEN CONFIRMED THE DECISION THRESHOLDFOR OR DIAGNOSIS. Performed By: #### C MP, CMADM, BNP ####[facility] Uiwpvfsxvr0901 [place] [address]Dr. Farhat Leal VALERIA 160 ng/mL Critically high 16-96 [facility] Comment on above: Performed By: #### C MP, CMADM, BNP ####[facility] Rwuknmvjdq0974 [place] [address]Dr. Farhat Leal CBC AUTO DIFFon 11-23-2021 BASO # 0.0 103/ul Normal 0.0-0.1 [facility] Comment on above: Performed By: #### C BC ####[facility] Lksqcuxofe5102 [place] [id number]. Farhat Leal Basophils/100 WBC (Bld) 0.2 % Normal 0.2-2.0 [facility] Comment on above: Performed By: #### C BC ####[facility] Juvxaewnjn2686 [place] [id number]. Farhat Leal EO # 0.0 103/ul Normal 0.0-0.7 [facility] Comment on above: Performed By: #### C BC ####[facility] Ttqcuzrmyu[address] [place], [place] [id number]. Farhat Leal Eosinophils/100 WBC (Bld) 0.1 % Critically low 0.9-7.0 [facility] Comment on above: Performed By: #### C BC ####[facility] Dexqhblrfc957[address] [place], [place] [address]Dr. Farhat Leal Erythrocyte distribution width (RBC) [Ratio] 13.4 % Normal 11.0-15.0 [facility] Comment on above: Performed By: #### C BC ####[facility] Mjvfmgryvz3966[address] [place], [place] [address]Dr. Farhat Leal Hematocrit (Bld) [Volume fraction] 31.6 % Critically low 42.0-54.0 [facility] Comment on above: Performed By: #### C BC ####[facility] Unzyecrqfw[address] [place], [place] [id number]. Farhat Leal Hemoglobin (Bld) [Mass/Vol] 10.4 g/dL Critically low 14.0-18.0 [facility] Comment on above: Performed By: #### C BC ####[facility] Rwfmmdjjhn[address] [place], [place] [id number]. Farhat Leal IG # 0.11 10e3/ul Critically high 0.00-0.03 [facility] Comment on above: Performed By: #### C BC ####[facility] Zebfybroxt[address] [place], [place] [id number]. Farhat Leal IG % 0.7 % Critically high 0.0-0.5 [facility] Comment on above: Performed By: #### C BC ####[facility] [address]qrzveaad[address] [place] [phone]. Farhat Leal LYMPH # 0.5 103/ul Critically low 1.2-3.8 [facility] Comment on above: Performed By: #### C BC ####[facility] Nugzvretoa5[address] [place] [phone]. Farhat Leal Lymphocytes/100 WBC (Bld) 2.8 % Critically low 20.5-60.0 [facility] Comment on above: Performed By: #### C BC ####[facility] Rqfudlagqj9922 [place] [phone]. Farhat Leal MANUAL DIFF REQ NO Normal [facility] Comment on above: Performed By: #### C BC ####[facility] Ibejrqpamb4187 [place] [phone]. Farhat Leal MCH (RBC) [Entitic mass] 29.8 pg Normal 25.9-34.0 [facility] Comment on above: Performed By: #### C BC ####[facility] Frgoqicsov4[address] [place] [phone]. Farhat Leal MCHC (RBC) [Mass/Vol] 32.9 g/dL Normal 29.9-35.2 [facility] Comment on above: Performed By: #### C BC ####[facility] Naaieppiig[address] [place] [phone]. Farhat Leal MCV (RBC) [Entitic vol] 90.5 fL Normal 80.0-94.0 [facility] Comment on above: Performed By: #### C BC ####[facility] Jhwivewvxr[address] [place] [address]Dr. Farhat Leal MONO # 1.3 103/ul Critically high 0.3-0.8 [facility] Comment on above: Performed By: #### C BC ####[facility] Ppdtcxfaaq3880 [place] [phone]. Farhat Leal Monocytes/100 WBC (Bld) 8.3 % Normal 1.7-12.0 [facility] Comment on above: Performed By: #### C BC ####[facility] Tqmwxrriwp3905 [place], [place] [address]Mu. Farhat Leal NEUT # 13.9 103/ul Critically high 1.4-6.5 [facility] Comment on above: Performed By: #### C BC ####[facility] Akpdzzhxnl5688 [place], [place] [address]Px. Farhat Leal Neutrophils/100 WBC (Bld) 87.9 % Critically high 43.0-75.0 [facility] Comment on above: Performed By: #### C BC ####[facility] Yyaftqnuds5947 [place] [phone]. Farhat Leal Platelet mean volume (Bld) [Entitic vol] 9.3 fL Critically low 9.5-13.5 [facility] Comment on above: Performed By: #### C BC ####[facility] Fglmpjazel6076 [place] [phone]. Farhat Leal PLT 390 103/ul Normal 150-450 [facility] Comment on above: Performed By: #### C BC ####[facility] Uwigibfhcv4244 [place] [phone]. Farhat Leal RBC 3.49 106/ul Critically low 4.70-6.10 [facility] Comment on above: Performed By: #### C BC ####[facility] Ezozlsgopn6480 [place] [phone]. Farhat Leal WBC 15.9 103/ul Critically high 4.0-11.0 [facility] Comment on above: Performed By: #### C BC ####[facility] Ishycpuekr77[address] [place] [phone]. Farhat Leal CT HEAD WO CONon 11-23-2021 CT HEAD WO CON Normal [facility] CULTURE BLOODon 11-23-2021 Microscopic examination of blood, culture Culture Observations: NO GROWTH AT 5 DAYS. Normal [facility] Comment on above: Performed By: #### B LDCX2 ####[facility] Usmbvpsiyw5[address] [place] [phone]. Farhat Leal Covid-19 PCR (CVDTBH)on SARS-CoV-2 (COVID-19) RNA JOSH+probe Ql (Unsp spec) Not detected Normal NOT DETECTED [facility] Comment on above: Result Comment: [...] for this test is supported by the [place] of [employer] and Human Service's declaration that [...] be used). Performed By: #### C VDTBH ####[facility] Xlgqehfmua40[address] [place] [address]DrSkylar Leal LACTATE/LACTIC ACIDon 2021 Lactate [Moles/Vol] 1.3 mmol/L Normal 0.4-1.9 [facility] Comment on above: Performed By: #### L ACT ####[facility] Jqgfqdmetx12[address] [place], [place] [address]Dr. Farhat Leal Lactate [Moles/Vol] 1.3 mmol/L Normal 0.4-1.9 [facility] Comment on above: Performed By: #### L ACT ####[facility] Wafposkcdy14[address] [place], [place] [address]Dr. Farhat Leal POINT OF CARE GLUCOSEon Glucose [Mass/Vol] 252 mg/dL Critically high 74-106 [facility] Comment on above: Performed By: #### P OCGLUC ####[facility] Bupnzqecfq4[address] [place], [place] [address]Dr. Farhat Leal PROF 14(COMP METB)on 022 Albumin [Mass/Vol] 1.6 g/dL Critically low 3.4-5.0 [facility] Comment on above: Performed By: #### C MP, CMADM, BNP ####[facility] Dwxbxpkuun0872 [place] [phone]. Farhat Leal Albumin/Globulin [Mass ratio] 0.4 {ratio} Normal [facility] Comment on above: Performed By: #### C MP, CMADM, BNP ####[facility] Bsszreeajy59[address] [place] [address]Dr. Farhat Leal ALP [Catalytic activity/Vol] 98 U/L Normal 46-116 [facility] Comment on above: Performed By: #### C MP, CMADM, BNP ####[facility] Pfxhqayroo4598 [place] [address]Dr. Farhat Leal ALT [Catalytic activity/Vol] 52 U/L Normal 16-63 [facility] Comment on above: Performed By: #### C MP, CMADM, BNP ####[facility] Atoyfftzle3452 [place] [address]Dr. Farhat Leal Anion gap [Moles/Vol] 9.8 mmol/L Normal [facility] Comment on above: Performed By: #### C MP, CMADM, BNP ####[facility] Xzgypqrxgt9076 [place] [address]Dr. Farhat Leal AST [Catalytic activity/Vol] 122 U/L Critically high 15-37 [facility] Comment on above: Performed By: #### C MP, CMADM, BNP ####[facility] Wbueyqxxwy8101 [place] [address]Dr. Farhat Leal Bilirubin [Mass/Vol] 0.7 mg/dL Normal 0.2-1.0 [facility] Comment on above: Performed By: #### C MP, CMADM, BNP ####[facility] Igfuumgeic5849 [place] [address]Dr. Farhat Leal Calcium [Mass/Vol] 8.6 mg/dL Normal 8.5-10.1 [facility] Comment on above: Performed By: #### C MP, CMADM, BNP ####[facility] Xqhglcvzjy5569 [place] [address]Dr. Farhat Leal Chloride [Moles/Vol] 95 mmol/L Critically low 98-107 [facility] Comment on above: Performed By: #### C MP, CMADM, BNP ####[facility] Kzvglknpcz9709 [place] [address]Dr. Farhat Leal CO2 [Moles/Vol] 29.6 mmol/L Normal 21.0-32.0 [facility] Comment on above: Performed By: #### C MP, CMADM, BNP ####[facility] Ewwuhdbdik53[address] [place], [place] [address]Dr. Farhat Leal Creatinine [Mass/Vol] 1.49 mg/dL Critically high 0.70-1.30 [facility] Comment on above: Performed By: #### C MP, CMADM, BNP ####[facility] Jzcqwenxff584[address] [place], [place] [address]Dr. Farhat Leal EGFR-AF KITTITIAN 55 mL/min/1.73m2 Critically low >=60 [facility] Comment on above: Performed By: #### C MP, CMADM, BNP ####[facility] Xbutrowzgj045[address] [place], [place] [address]Dr. Farhat Leal EGFR-NON AF KITTITIAN 46 mL/min/1.73m2 Critically low >=60 [facility] Comment on above: Performed By: #### C MP, CMADM, BNP ####[facility] Lmxibdohyz[address] [place] [address]Dr. Farhat Leal Globulin (S) [Mass/Vol] 4.3 g/dL Normal [facility] Comment on above: Performed By: #### C MP, CMADM, BNP ####[facility] Ipwokjdbld017[address] [place], [place] [address]Dr. Farhat Leal Glucose [Mass/Vol] 213 mg/dL Critically high 74-106 [facility] Comment on above: Performed By: #### C MP, CMADM, BNP ####[facility] Kojdjzhbyb4008 [place] [address]Dr. Farhat Leal Potassium [Moles/Vol] 4.4 mmol/L Normal 3.5-5.1 [facility] Comment on above: Performed By: #### C MP, CMADM, BNP ####[facility] Ulgmxddcak6958 [place] [address]Dr. Madelynlorri Leal Protein [Mass/Vol] 5.9 g/dL Critically low 6.4-8.2 [facility] Comment on above: Performed By: #### C MP, CMADM, BNP ####[facility] Qibcdpgwpo8073 [place] [address]Dr. Madelynlorri Leal Sodium [Moles/Vol] 130 mmol/L Critically low 136-145 [facility] Comment on above: Performed By: #### C MP, CMADM, BNP ####[facility] Rsaxegxmpb[address] [place], [place] [address]Dr. Farhat Leal Urea nitrogen [Mass/Vol] 46.0 mg/dL Critically high 7.0-18.0 [facility] Comment on above: Performed By: #### C MP, CMADM, BNP ####[facility] Vqpwkxenkb8013 [place] [address]Dr. Farhat Leal Urea nitrogen/Creatinine [Mass ratio] 30.9 mg/mg Normal [facility] Comment on above: Performed By: #### C MP, CMADM, BNP ####[facility] Fouulmbtzz12[address] [place], [place] [address]Dr. Farhat Leal PROTIMEon 11-23-2021 INR Coag (PPP) [Relative time] 2.55 {INR} Normal [facility] Comment on above: Performed By: #### P TT, PT ####[facility] Byipnnpvqb3[address] [place], [place] [address]Dr. Farhat Leal INR GUIDELINES SEE BELOW Normal [facility] Comment on above: Result Comment: MALINA RED INR: 2.0 - 3.0 CONDITIONS NOT LISTED BELOW 2.5 - 3.5 FOR PROSTHETIC HEART VALVE REPLACEMENT 2.5 - 3.5 RECURRENT THROMBOSIS Performed By: #### P TT, PT ####[facility] Ymytpkhjic[address] [place] [phone]. Farhat Leal PT Coag (PPP) [Time] 25.9 s Critically high 9.0-11.6 [facility] Comment on above: Performed By: #### P TT, PT ####[facility] Vhvempctwv0936 [place] [address]Dr. Farhat Leal PTTon 11-23-2021 aPTT Coag (Bld) [Time] 39.9 s Critically high 22.3-36. 2 [facility] Comment on above: Performed By: #### P TT, PT ####[facility] Aswlhvpahf8[address] [place], [place] [address]Dr. Farhat Leal XR CHEST 1 Von 11-23-2021 XR CHEST 1 V Normal [facility] XR HEEL RT 2Von 11-23-2021 XR HEEL RT 2V Normal [facility] XR FOOT RT MIN 3 VIEWSon XR FOOT RT MIN 3 VIEWS Normal [facility] US ARTERY LEG RTon US ARTERY LEG RT Normal [facility] CBC AUTO DIFFon 09-24-2021 BASO # 0.1 103/ul Normal 0.0-0.1 [facility] Comment on above: Performed By: #### C BC ####[facility] Jgikmwprey409[address] [place], [place] [address]Dr. Farhat Leal Basophils/100 WBC (Bld) 0.7 % Normal 0.2-2.0 [facility] Comment on above: Performed By: #### C BC ####[facility] Cdpgqvfbjh9623[address] [place], [place] [address]Dr. Farhat Leal EO # 0.3 103/ul Normal 0.0-0.7 [facility] Comment on above: Performed By: #### C BC ####[facility] Ytoihhxnqc8464[address] [place], [place] [address]Dr. Farhat Leal Eosinophils/100 WBC (Bld) 3.9 % Normal 0.9-7.0 [facility] Comment on above: Performed By: #### C BC ####[facility] Wtmfcigijk3760[address] [place], [place] [address]Dr. Farhat Leal Erythrocyte distribution width (RBC) [Ratio] 12.6 % Normal 11.0-15.0 [facility] Comment on above: Performed By: #### C BC ####[facility] Gjeiddeace8312 [place] [address]Dr. Farhat Leal Hematocrit (Bld) [Volume fraction] 38.9 % Critically low 42.0-54.0 [facility] Comment on above: Performed By: #### C BC ####[facility] Wktvvysduo6650[address] [place], [place] [address]Dr. Farhat Leal Hemoglobin (Bld) [Mass/Vol] 12.8 g/dL Critically low 14.0-18.0 [facility] Comment on above: Performed By: #### C BC ####[facility] Opajryxqkw8525[address] [place], [place] [address]Dr. Farhat Leal IG # 0.10 10e3/ul Critically high 0.00-0.03 [facility] Comment on above: Performed By: #### C BC ####[facility] Ghhpmxveiu9366[address] [place], [place] [address]Dr. Madelynlorri Leal IG % 1.2 % Critically high 0.0-0.5 [facility] Comment on above: Performed By: #### C BC ####[facility] Guitqgdbww[address] [place], [place] [address]Dr. Farhat Leal LYMPH # 2.1 103/ul Normal 1.2-3.8 [facility] Comment on above: Performed By: #### C BC ####[facility] Cuvcgrllnd4425[address] [place], [place] [address]Dr. Farhat Leal Lymphocytes/100 WBC (Bld) 25.9 % Normal 20.5-60.0 [facility] Comment on above: Performed By: #### C BC ####[facility] Zllouhunhh8215[address] [place], [place] [address]Dr. Madelynlorri Leal MANUAL DIFF REQ NO Normal [facility] Comment on above: Performed By: #### C BC ####[facility] Tlgzfyvpvv5277 [place] [address]Dr. Farhat Leal MCH (RBC) [Entitic mass] 31.1 pg Normal 25.9-34.0 [facility] Comment on above: Performed By: #### C BC ####[facility] Wsrysjammd138[address] [place], [place] [address]Dr. Farhat Leal MCHC (RBC) [Mass/Vol] 32.9 g/dL Normal 29.9-35.2 [facility] Comment on above: Performed By: #### C BC ####[facility] Avetkoxner350[address] [place], [place] [address]Dr. Farhat Leal MCV (RBC) [Entitic vol] 94.6 fL Critically high 80.0-94.0 [facility] Comment on above: Performed By: #### C BC ####[facility] Ukroneople157[address] [place], [place] [address]Dr. Farhat Leal MONO # 1.2 103/ul Critically high 0.3-0.8 [facility] Comment on above: Performed By: #### C BC ####[facility] Umvedocati957[address] [place], [place] [address]Dr. Farhat Leal Monocytes/100 WBC (Bld) 14.1 % Critically high 1.7-12.0 [facility] Comment on above: Performed By: #### C BC ####[facility] Eiqzfvhcku1816[address] [place], [place] [address]Dr. Farhat Leal NEUT # 4.4 103/ul Normal 1.4-6.5 [facility] Comment on above: Performed By: #### C BC ####[facility] Zhxnvmwvxq932[address] [place], [place] [address]Dr. Farhat Elvis Neutrophils/100 WBC (Bld) 54.2 % Normal 43.0-75.0 [facility] Comment on above: Performed By: #### C BC ####[facility] Iixlpvskej739[address] [place], [place] [address]Dr. Farhat Leal Platelet mean volume (Bld) [Entitic vol] 9.9 fL Normal 9.5-13.5 [facility] Comment on above: Performed By: #### C BC ####[facility] Pvhbhpanxb0687 [place] [phone]. Farhat Leal PLT 224 103/ul Normal 150-450 [facility] Comment on above: Performed By: #### C BC ####[facility] Ilgwvktuvi9251 [place] [phone]. Farhat Leal RBC 4.11 106/ul Critically low 4.70-6.10 [facility] Comment on above: Performed By: #### C BC ####[facility] Wiatfamntx6819 [place] [phone]. Farhat Leal WBC 8.2 103/ul Normal 4.0-11.0 [facility] Comment on above: Performed By: #### C BC ####[facility] Nrilublgrf4114 [place] [address]Dr. Madelynlorri Leal PROF CHEM 8 (BAS METB)on Anion gap [Moles/Vol] 9.6 mmol/L Normal [facility] Comment on above: Performed By: #### B MP ####[facility] Wgcpdrobcl8258 [place] [address]Dr. Farhat Elvis Calcium [Mass/Vol] 8.6 mg/dL Normal 8.5-10.1 [facility] Comment on above: Performed By: #### B MP ####[facility] Zluloetefh7835 [place] [address]Dr. Farhat Elvis Chloride [Moles/Vol] 94 mmol/L Critically low 98-107 [facility] Comment on above: Performed By: #### B MP ####[facility] Ugmcwsjupu0026 [place] [phone]. Madelynlorri Leal CO2 [Moles/Vol] 28.1 mmol/L Normal 21.0-32.0 [facility] Comment on above: Performed By: #### B MP ####[facility] Dmuniqawtu1800 [place] [phone]. Farhat Elvis Creatinine [Mass/Vol] 1.91 mg/dL Critically high 0.70-1.30 [facility] Comment on above: Performed By: #### B MP ####[facility] Jjzjhijhzw2916 [place] [phone]. Madelynlorri Elvis EGFR-AF KITTITIAN 42 mL/min/1.73m2 Critically low >=60 [facility] Comment on above: Performed By: #### B MP ####[facility] Zkhwqlbiue4490 [place] [phone]. Farhat Leal EGFR-NON AF [place] 34 mL/min/1.73m2 Critically low >=60 [facility] Comment on above: Performed By: #### B MP ####[facility] Zidhblayfj0199 [place] [phone]. Farhat Leal Glucose [Mass/Vol] 314 mg/dL Critically high 74-106 [facility] Comment on above: Performed By: #### B MP ####[facility] Qjmsqilxyv35[address] [place], [place] [address]Dr. Farhat Leal Potassium [Moles/Vol] 4.7 mmol/L Normal 3.5-5.1 [facility] Comment on above: Performed By: #### B MP ####[facility] Wogzyplkko6[address] [place], [place] [address]Dr. Farhat Leal Sodium [Moles/Vol] 127 mmol/L Critically low 136-145 Th [facility] Comment on above: Performed By: #### B MP ####[facility] Ityjvzlegt[address] [place], [place] [address]Dr. Farhat Leal Urea nitrogen [Mass/Vol] 79.0 mg/dL Critically high 7.0-18.0 [facility] Comment on above: Result Comment: repe ated Performed By: #### B MP ####[facility] Wlihuapjoz047[address] [place], [place] [address]Dr. Farhat Leal Urea nitrogen/Creatinine [Mass ratio] 41.4 mg/mg Normal [facility] Comment on above: Performed By: #### B MP ####[facility] Euyxvdnwry[address] [place], [place] [address]Dr. Farhat Leal PTT HEPARIN MONITORon 2021 aPTT Coag (Bld) [Time] 42.7 s Normal 39.5-54.2 Th [facility] Comment on above: Performed By: #### P TTHEP ####[facility] Gqwigewtoh1583 [place] [address]Dr. Farhat Leal aPTT Coag (Bld) [Time] 56.7 s Critically high 39.5-54. 2 [facility] Comment on above: Performed By: #### P TTHEP ####[facility] Dnfyavyfsi0822[address] [place], [place] [address]Dr. Farhat Leal CBC AUTO DIFFon 09-23-2021 BASO # 0.1 103/ul Normal 0.0-0.1 [facility] Comment on above: Performed By: #### C BC ####[facility] Vgrvrfoosg2399[address] [place], [place] [address]Dr. Farhat Leal Basophils/100 WBC (Bld) 0.6 % Normal 0.2-2.0 [facility] Comment on above: Performed By: #### C BC ####[facility] Zbhxxwjdub323[address] [place], [place] [address]Dr. Farhat Leal EO # 0.2 103/ul Normal 0.0-0.7 [facility] Comment on above: Performed By: #### C BC ####[facility] Jwejfvdhkt7232[address] [place], [place] [address]Dr. Farhat Leal Eosinophils/100 WBC (Bld) 2.6 % Normal 0.9-7.0 [facility] Comment on above: Performed By: #### C BC ####[facility] Ckmxqnjccg436[address] [place], [place] [address]Dr. Farhat Leal Erythrocyte distribution width (RBC) [Ratio] 12.4 % Normal 11.0-15.0 [facility] Comment on above: Performed By: #### C BC ####[facility] Lqahyrsoab2004[address] [place], [place] [address]Dr. Farhat Leal Hematocrit (Bld) [Volume fraction] 38.4 % Critically low 42.0-54.0 [facility] Comment on above: Performed By: #### C BC ####[facility] Nzkpjuixan7085 [place] [address]Dr. Farhat Leal Hemoglobin (Bld) [Mass/Vol] 12.8 g/dL Critically low 14.0-18.0 [facility] Comment on above: Performed By: #### C BC ####[facility] Meiysqfdvc9354 [place] [phone]. Farhat Leal IG # 0.06 10e3/ul Critically high 0.00-0.03 [facility] Comment on above: Performed By: #### C BC ####[facility] Odpnadokpt4581 [place] [phone]. Farhat Leal IG % 0.8 % Critically high 0.0-0.5 [facility] Comment on above: Performed By: #### C BC ####[facility] Pwwarijrlz0314[address] [place], [place] [address]Dr. Farhat Leal LYMPH # 1.5 103/ul Normal 1.2-3.8 [facility] Comment on above: Performed By: #### C BC ####[facility] Qxnoednhok0316[address] [place], [place] [address]Dr. Farhat Leal Lymphocytes/100 WBC (Bld) 19.7 % Critically low 20.5-60.0 [facility] Comment on above: Performed By: #### C BC ####[facility] Yhnjkcighd0438 [place] [address]Dr. Farhat Leal MANUAL DIFF REQ NO Normal [facility] Comment on above: Performed By: #### C BC ####[facility] Jhxxxcawwz4095 [place] [address]Dr. Farhat Leal MCH (RBC) [Entitic mass] 31.6 pg Normal 25.9-34.0 [facility] Comment on above: Performed By: #### C BC ####[facility] Otzipwkvkq3585[address] [place], [place] [address]Dr. Farhat Leal MCHC (RBC) [Mass/Vol] 33.3 g/dL Normal 29.9-35.2 [facility] Comment on above: Performed By: #### C BC ####[facility] Ctmteaknvt3267 [place] [phone]. Farhat Leal MCV (RBC) [Entitic vol] 94.8 fL Critically high 80.0-94.0 [facility] Comment on above: Performed By: #### C BC ####[facility] Zwbbtksgks9874 [place] [phone]. Farhat Leal MONO # 1.0 103/ul Critically high 0.3-0.8 [facility] Comment on above: Performed By: #### C BC ####[facility] Dmgzrqjdhc0551 [place] [phone]. Farhat Leal Monocytes/100 WBC (Bld) 13.0 % Critically high 1.7-12.0 [facility] Comment on above: Performed By: #### C BC ####[facility] Mynqwcuhcq413[address] [place], [place] [address]Dr. Farhat Leal NEUT # 4.9 103/ul Normal 1.4-6.5 [facility] Comment on above: Performed By: #### C BC ####[facility] Nfgrthhniu5264[address] [place], [place] [address]Dr. Farhat Leal Neutrophils/100 WBC (Bld) 63.3 % Normal 43.0-75.0 [facility] Comment on above: Performed By: #### C BC ####[facility] Wbxdrqfspo9915 [place] [phone]. Farhat Leal Platelet mean volume (Bld) [Entitic vol] 10.7 fL Normal 9.5-13.5 [facility] Comment on above: Performed By: #### C BC ####[facility] Tclvttsfnc1787 [place] [phone]. Farhat Leal PLT 205 103/ul Normal 150-450 [facility] Comment on above: Performed By: #### C BC ####[facility] V[address]oodkqose[address] [place], [place] [id number]. Farhat Leal RBC 4.05 106/ul Critically low 4.70-6.10 [facility] Comment on above: Performed By: #### C BC ####[facility] Vtmufwakqt4082 [place] [address]Dr. Farhat Elvis WBC 7.7 103/ul Normal 4.0-11.0 [facility] Comment on above: Performed By: #### C BC ####[facility] Thnqnuifpp2337[address] [place], [place] [address]Dr. Madelynlorri Leal PROF CHEM 8 (BAS METB)on Anion gap [Moles/Vol] 15.5 mmol/L Normal [facility] Comment on above: Performed By: #### B MP ####[facility] Wzqezsfbtd737[address] [place], [place] [address]Dr. Farhat Leal Calcium [Mass/Vol] 9.1 mg/dL Normal 8.5-10.1 [facility] Comment on above: Performed By: #### B MP ####[facility] Tmhreldyqd24[address] [place], [place] [address]Dr. Farhat Leal Chloride [Moles/Vol] 92 mmol/L Critically low 98-107 [facility] Comment on above: Performed By: #### B MP ####[facility] Yxdltundcx1627[address] [place], [place] [address]Dr. Farhat Leal CO2 [Moles/Vol] 28.5 mmol/L Normal 21.0-32.0 [facility] Comment on above: Performed By: #### B MP ####[facility] Gjstvwmbtn8[address] [place], [place] [address]Dr. Farhat Leal Creatinine [Mass/Vol] 1.84 mg/dL Critically high 0.70-1.30 [facility] Comment on above: Performed By: #### B MP ####[facility] Rmvhbkbbmy9[address] [place], [place] [address]Dr. Farhat Leal EGFR-AF KITTITIAN 44 mL/min/1.73m2 Critically low >=60 [facility] Comment on above: Performed By: #### B MP ####[facility] S[address]ychgaoqu[address] [place], [place] [address]Dr. Farhat Leal EGFR-NON AF [place]ITT[place]IAN 36 mL/min/1.73m2 Critically low >=60 [facility] Comment on above: Performed By: #### B MP ####[facility] Cdw[address]ys[address]jr[address] [place] [address]Dr. Farhat Leal Glucose [Mass/Vol] 267 mg/dL Critically high 74-106 T [facility] Comment on above: Performed By: #### B MP ####[facility] Aqmrxjkbbd5[address] [place] [address]Dr. Farhat Leal Potassium [Moles/Vol] 5.0 mmol/L Normal 3.5-5.1 [facility] Comment on above: Performed By: #### B MP ####[facility] Frlhcfqvuj88[address] [place], [place] [address]Dr. Farhat Lael Sodium [Moles/Vol] 131 mmol/L Critically low 136-145 Th [facility] Comment on above: Performed By: #### B MP ####[facility] Lkcpaahlww3007[address] [place], [place] [address]Dr. Farhat Leal Urea nitrogen [Mass/Vol] 76.0 mg/dL Critically high 7.0-18.0 [facility] Comment on above: Performed By: #### B MP ####[facility] Ubhsnbruik639[address] [place], [place] [address]Dr. Farhat Leal Urea nitrogen/Creatinine [Mass ratio] 41.3 mg/mg Normal [facility] Comment on above: Performed By: #### B MP ####[facility] Vlsqewgcni4554[address] [place], [place] [address]Dr. Farhat Leal PTT HEPARIN MONITORon 2021 aPTT Coag (Bld) [Time] 57.2 s Critically high 39.5-54. 2 [facility] Comment on above: Performed By: #### P TTHEP ####[facility] Bbpjhityia0016[address] [place], [place] [address]Dr. Farhat Leal aPTT Coag (Bld) [Time] 74.7 s Critically high 39.5-54. 2 [facility] Comment on above: Result Comment: repe ated Performed By: #### P TTHEP ####[facility] Lapmxcxcil929[address] [place], [place] [address]Dr. Farhat Leal aPTT Coag (Bld) [Time] 45.5 s Normal 39.5-54.2 Th e [facility] Comment on above: Performed By: #### P TTHEP ####[facility] Anqwvsnvts8470[address] [place], [place] [address]Dr. Farhat Leal CBC AUTO DIFFon 09-22-2021 BASO # 0.1 103/ul Normal 0.0-0.1 [facility] Comment on above: Performed By: #### C BC ####[facility] Pnuwhwsjkq7654[address] [place], [place] [address]Dr. Farhat Elvis Basophils/100 WBC (Bld) 0.7 % Normal 0.2-2.0 [facility] Comment on above: Performed By: #### C BC ####[facility] Lqigggkteb37[address] [place], [place] [address]Dr. Farhat Leal EO # 0.3 103/ul Normal 0.0-0.7 [facility] Comment on above: Performed By: #### C BC ####[facility] Jzfzdimhjk5058[address] [place], [place] [address]Dr. Madelynlorri Leal Eosinophils/100 WBC (Bld) 3.2 % Normal 0.9-7.0 [facility] Comment on above: Performed By: #### C BC ####[facility] Bhybzgdiql4225[address] [place], [place] [address]Dr. Farhat Leal Erythrocyte distribution width (RBC) [Ratio] 12.5 % Normal 11.0-15.0 [facility] Comment on above: Performed By: #### C BC ####[facility] Yfpslejibj5422[address] [place], [place] [address]Dr. Madelynlorri Leal Hematocrit (Bld) [Volume fraction] 40.5 % Critically low 42.0-54.0 [facility] Comment on above: Performed By: #### C BC ####[facility] Nepfdmgaxm010[address] [place], [place] [address]Dr. Farhat Leal Hemoglobin (Bld) [Mass/Vol] 13.4 g/dL Critically low 14.0-18.0 [facility] Comment on above: Performed By: #### C BC ####[facility] [address]ccp[address]xpzl[address] [place] [phone]. Farhat Leal IG # 0.11 10e3/ul Critically high 0.00-0.03 [facility] Comment on above: Performed By: #### C BC ####[facility] Itxuzmgemd8[address] [place] [phone]. Farhat Leal IG % 1.3 % Critically high 0.0-0.5 [facility] Comment on above: Performed By: #### C BC ####[facility] Mjmobeyjal8[address] [place] [phone]. Farhat Leal LYMPH # 1.7 103/ul Normal 1.2-3.8 [facility] Comment on above: Performed By: #### C BC ####[facility] Zczstxeaol04[address] [place] [address]Dr. Madelynlorri Leal Lymphocytes/100 WBC (Bld) 19.6 % Critically low 20.5-60.0 [facility] Comment on above: Performed By: #### C BC ####[facility] Nw[address]zileakt[address] [place] [address]Dr. Farhat Leal MANUAL DIFF REQ NO Normal [facility] Comment on above: Performed By: #### C BC ####[facility] Azxjporfxb14[address] [place] [address]Dr. Farhat Leal MCH (RBC) [Entitic mass] 31.1 pg Normal 25.9-34.0 [facility] Comment on above: Performed By: #### C BC ####[facility] Wnzvphoxsc35[address] [place] [address]Dr. Farhat Leal MCHC (RBC) [Mass/Vol] 33.1 g/dL Normal 29.9-35.2 [facility] Comment on above: Performed By: #### C BC ####[facility] Avqbbkspzs46[address] [place] [address]Dr. Farhat Leal MCV (RBC) [Entitic vol] 94.0 fL Normal 80.0-94.0 [facility] Comment on above: Performed By: #### C BC ####[facility] Kxiqhvlchg7[address] [place] [phone]. Farhat Leal MONO # 1.1 103/ul Critically high 0.3-0.8 [facility] Comment on above: Performed By: #### C BC ####[facility] Jrfohtqhah4326 [place] [phone]. Farhat Leal Monocytes/100 WBC (Bld) 12.7 % Critically high 1.7-12.0 [facility] Comment on above: Performed By: #### C BC ####[facility] Uzkghtoqbs7[address] [place] [phone]. Farhat Leal NEUT # 5.3 103/ul Normal 1.4-6.5 [facility] Comment on above: Performed By: #### C BC ####[facility] Kdbvpcjqnf026[address] [place] [phone]. Farhat Leal Neutrophils/100 WBC (Bld) 62.5 % Normal 43.0-75.0 [facility] Comment on above: Performed By: #### C BC ####[facility] Pdvxrdzaxd9647 [place] [phone]. Farhat Leal Platelet mean volume (Bld) [Entitic vol] 10.1 fL Normal 9.5-13.5 [facility] Comment on above: Performed By: #### C BC ####[facility] Tgpnwkicet6778 [place] [phone]. Farhat Leal PLT 220 103/ul Normal 150-450 [facility] Comment on above: Performed By: #### C BC ####[facility] Onkxrzgwaw9[address] [place] [phone]. Farhat Leal RBC 4.31 106/ul Critically low 4.70-6.10 [facility] Comment on above: Performed By: #### C BC ####[facility] Fwhxobrrqn5[address] [place] [phone]. Farhta Leal WBC 8.4 103/ul Normal 4.0-11.0 [facility] Comment on above: Performed By: #### C BC ####[facility] Ykptaigsww10[address] [place] [address]Dr. Farhat Leal PROF CHEM 8 (BAS METB)on Anion gap [Moles/Vol] 15.5 mmol/L Normal [facility] Comment on above: Performed By: #### B MP ####[facility] Zfodumnwwq8565[address] [place], [place] [address]Dr. Farhat Leal Calcium [Mass/Vol] 8.9 mg/dL Normal 8.5-10.1 [facility] Comment on above: Performed By: #### B MP ####[facility] Eagndxjqxl3411[address] [place], [place] [address]Dr. Farhat Leal Chloride [Moles/Vol] 92 mmol/L Critically low 98-107 [facility] Comment on above: Performed By: #### B MP ####[facility] Cwxdzlzkqj160[address] [place], [place] [address]Dr. Farhat Leal CO2 [Moles/Vol] 25.7 mmol/L Normal 21.0-32.0 [facility] Comment on above: Performed By: #### B MP ####[facility] Szqqnxhjyp4556[address] [place], [place] [address]Dr. Farhat Leal Creatinine [Mass/Vol] 1.85 mg/dL Critically high 0.70-1.30 [facility] Comment on above: Performed By: #### B MP ####[facility] Digrexxbqx517738 [address] [place], [place] [address]Dr. Farhat Leal EGFR-AF KITT[place]IAN 43 mL/min/1.73m2 Critically low >=60 [facility] Comment on above: Performed By: #### B MP ####[facility] Mfeazrrybu5268[address] [place], [place] [address]Dr. Farhat Leal EGFR-NON AF [place]IAN 36 mL/min/1.73m2 Critically low >=60 [facility] Comment on above: Performed By: #### B MP ####[facility] Fykyvziowr605[address] [place], [place] [address]Dr. Farhat Leal Glucose [Mass/Vol] 410 mg/dL Critically high 74-106 [facility] Comment on above: Performed By: #### B MP ####[facility] Dfhhxquobw8432[address] [place], [place] [address]Dr. Farhat Leal Potassium [Moles/Vol] 5.2 mmol/L Critically high 3.5-5.1 [facility] Comment on above: Performed By: #### B MP ####[facility] Uoohmxoiwg3790[address] [place], [place] [address]Dr. Farhat Leal Sodium [Moles/Vol] 128 mmol/L Critically low 136-145 Th [facility] Comment on above: Performed By: #### B MP ####[facility] Oarquqwddo1159[address] [place], [place] [address]Dr. Farhat Leal Urea nitrogen [Mass/Vol] 75.0 mg/dL Critically high 7.0-18.0 [facility] Comment on above: Performed By: #### B MP ####[facility] Errtqypxbw2067[address] [place], [place] [address]Dr. Farhat Leal Urea nitrogen/Creatinine [Mass ratio] 40.5 mg/mg Normal [facility] Comment on above: Performed By: #### B MP ####[facility] Ilpfjlxdfo7224[address] [place], [place] [address]Dr. Farhat Leal PTT HEPARIN MONITORon 2021 aPTT Coag (Bld) [Time] 51.2 s Normal 39.5-54.2 Th [facility] Comment on above: Performed By: #### P TTHEP ####[facility] Xpbuymtljj4459[address] [place], [place] [address]Dr. Farhat Leal aPTT Coag (Bld) [Time] 55.6 s Critically high 39.5-54. 2 [facility] Comment on above: Performed By: #### P TTHEP ####[facility] Onznawmuke422[address] [place], [place] [address]Dr. Farhat Leal aPTT Coag (Bld) [Time] 46.1 s Normal 39.5-54.2 Th [facility] Comment on above: Performed By: #### P TTHEP ####[facility] Uswxwxrpco08[address] [place], [place] [address]Dr. Farhat Leal aPTT Coag (Bld) [Time] 53.8 s Normal 39.5-54.2 Th e [facility] Comment on above: Performed By: #### P TTHEP ####[facility] Mfyzcfuqgx[address] [place] [phone]. Farhat Leal CBC AUTO DIFFon 09-21-2021 BASO # 0.1 103/ul Normal 0.0-0.1 [facility] Comment on above: Performed By: #### C BC ####[facility] Uwqynxbkwz1836[address] [place], [place] [address]Dr. Farhat Elvis Basophils/100 WBC (Bld) 0.8 % Normal 0.2-2.0 [facility] Comment on above: Performed By: #### C BC ####[facility] Rdviudmokw2445[address] [place], [place] [address]Dr. Farhat Leal EO # 0.4 103/ul Normal 0.0-0.7 [facility] Comment on above: Performed By: #### C BC ####[facility] Tvqyrnhmmo128[address] [place], [place] [address]Dr. Farhat Leal Eosinophils/100 WBC (Bld) 4.3 % Normal 0.9-7.0 [facility] Comment on above: Performed By: #### C BC ####[facility] Sjpcdesqmc[address] [place], [place] [id number]. Farhat Leal Erythrocyte distribution width (RBC) [Ratio] 12.5 % Normal 11.0-15.0 [facility] Comment on above: Performed By: #### C BC ####[facility] Ndidouhwls[address] [place], [place] [id number]. Farhat Leal Hematocrit (Bld) [Volume fraction] 40.8 % Critically low 42.0-54.0 [facility] Comment on above: Performed By: #### C BC ####[facility] Kiofuukdbm2507[address] [place], [place] [address]Dr. Farhat Leal Hemoglobin (Bld) [Mass/Vol] 13.5 g/dL Critically low 14.0-18.0 [facility] Comment on above: Performed By: #### C BC ####[facility] Opcazsvito[address] [place] [phone]. Farhat Leal IG # 0.10 10e3/ul Critically high 0.00-0.03 [facility] Comment on above: Performed By: #### C BC ####[facility] Qnepqsssvx[address] [place] [phone]. Farhat Leal IG % 1.2 % Critically high 0.0-0.5 [facility] Comment on above: Performed By: #### C BC ####[facility] Alqtrsmxvv9[address] [place] [address]Dr. Farhat Leal LYMPH # 1.3 103/ul Normal 1.2-3.8 [facility] Comment on above: Performed By: #### C BC ####[facility] Ryzkyvwzma04[address] [place] [address]Dr. Farhat Leal Lymphocytes/100 WBC (Bld) 15.4 % Critically low 20.5-60.0 [facility] Comment on above: Performed By: #### C BC ####[facility] Gjhzrslhkt60[address] [place] [address]Dr. Farhat Leal MANUAL DIFF REQ NO Normal [facility] Comment on above: Performed By: #### C BC ####[facility] Tmygvqikvp8[address] [place] [address]Dr. Farhat Leal MCH (RBC) [Entitic mass] 31.0 pg Normal 25.9-34.0 [facility] Comment on above: Performed By: #### C BC ####[facility] Ruqnajkbur2255[address] [place], [place] [address]Dr. Farhat Leal MCHC (RBC) [Mass/Vol] 33.1 g/dL Normal 29.9-35.2 [facility] Comment on above: Performed By: #### C BC ####[facility] Tkwudmesya38[address] [place] [address]Dr. Farhat Leal MCV (RBC) [Entitic vol] 93.8 fL Normal 80.0-94.0 [facility] Comment on above: Performed By: #### C BC ####[facility] Vezmrdeahh60[address] [place] [phone]. Farhat Leal MONO # 1.2 103/ul Critically high 0.3-0.8 [facility] Comment on above: Performed By: #### C BC ####[facility] Rqchpmmszd5688 [place] [phone]. Farhat Leal Monocytes/100 WBC (Bld) 13.6 % Critically high 1.7-12.0 [facility] Comment on above: Performed By: #### C BC ####[facility] Ywclhjuevb6941 [place] [phone]. Farhat Leal NEUT # 5.5 103/ul Normal 1.4-6.5 [facility] Comment on above: Performed By: #### C BC ####[facility] Msucashfqw1505 [place] [phone]. Farhat Leal Neutrophils/100 WBC (Bld) 64.7 % Normal 43.0-75.0 [facility] Comment on above: Performed By: #### C BC ####[facility] Xojrrpucaj8359 [place] [phone]. Farhat Leal Platelet mean volume (Bld) [Entitic vol] 9.8 fL Normal 9.5-13.5 [facility] Comment on above: Performed By: #### C BC ####[facility] Oacwidaucz46[address] [place] [phone]. Farhat Leal PLT 206 103/ul Normal 150-450 [facility] Comment on above: Performed By: #### C BC ####[facility] Qbicnftbxn4344 [place] [phone]. Farhat Leal RBC 4.35 106/ul Critically low 4.70-6.10 [facility] Comment on above: Performed By: #### C BC ####[facility] Xlutxlowra0321 [place] [phone]. Farhat Leal WBC 8.4 103/ul Normal 4.0-11.0 [facility] Comment on above: Performed By: #### C BC ####[facility] Gdvcgschfc58[address] [place] [address]Dr. Farhat Leal PROF CHEM 8 (BAS METB)on Anion gap [Moles/Vol] 12.3 mmol/L Normal [facility] Comment on above: Performed By: #### B MP ####[facility] Awlhjclonb5[address] [place] [address]Dr. Farhat Leal Calcium [Mass/Vol] 8.6 mg/dL Normal 8.5-10.1 [facility] Comment on above: Performed By: #### B MP ####[facility] Tqnhangjme7512[address] [place], [place] [address]Dr. Farhat Leal Chloride [Moles/Vol] 94 mmol/L Critically low 98-107 [facility] Comment on above: Performed By: #### B MP ####[facility] Podoumaury4469[address] [place], [place] [address]Dr. Farhat Leal CO2 [Moles/Vol] 30.8 mmol/L Normal 21.0-32.0 [facility] Comment on above: Performed By: #### B MP ####[facility] Omlbnbybnf8413[address] [place], [place] [address]Dr. Farhat Leal Creatinine [Mass/Vol] 1.99 mg/dL Critically high 0.70-1.30 [facility] Comment on above: Performed By: #### B MP ####[facility] Aveuuzrtrt537[address] [place], [place] [address]Dr. Farhat Leal EGFR-AF KITT[place] 40 mL/min/1.73m2 Critically low >=60 [facility] Comment on above: Performed By: #### B MP ####[facility] Uvtxjrxsap065[address] [place], [place] [address]Dr. Farhat Leal EGFR-NON AF [place] 33 mL/min/1.73m2 Critically low >=60 [facility] Comment on above: Performed By: #### B MP ####[facility] Dwusbaawuu058[address] [place], [place] [address]Dr. Farhat Lael Glucose [Mass/Vol] 264 mg/dL Critically high 74-106 [facility] Comment on above: Performed By: #### B MP ####[facility] Azvvyzzefl967[address] [place], [place] [address]Dr. Farhat Leal Potassium [Moles/Vol] 5.1 mmol/L Normal 3.5-5.1 [facility] Comment on above: Performed By: #### B MP ####[facility] Bddvaebhua3187[address] [place], [place] [address]Dr. Farhat Lael Sodium [Moles/Vol] 132 mmol/L Critically low 136-145 Th [facility] Comment on above: Performed By: #### B MP ####[facility] Zuasvvxolp5350[address] [place], [place] [address]Dr. Farhat Leal Urea nitrogen [Mass/Vol] 72.0 mg/dL Critically high 7.0-18.0 [facility] Comment on above: Performed By: #### B MP ####[facility] Hmgvfzwilq3023[address] [place], [place] [address]Dr. Farhat Leal Urea nitrogen/Creatinine [Mass ratio] 36.2 mg/mg Normal [facility] Comment on above: Performed By: #### B MP ####[facility] Ekocfwwjtm500[address] [place], [place] [address]Dr. Farhat Leal PTT HEPARIN MONITORon 2021 aPTT Coag (Bld) [Time] 45.3 s Normal 39.5-54.2 [facility] Comment on above: Performed By: #### P TTHEP ####[facility] Ugvgubttlz1028[address] [place], [place] [address]Dr. Farhat Leal aPTT Coag (Bld) [Time] 68.0 s Critically high 39.5-54. 2 [facility] Comment on above: Performed By: #### P TTHEP ####[facility] Qvlntvfvqd4180[address] [place], [place] [address]Dr. Farhat Leal aPTT Coag (Bld) [Time] 69.4 s Critically high 39.5-54. 2 [facility] Comment on above: Performed By: #### P TTHEP ####[facility] Tkguhlfyqj7205[address] [place], [place] [address]Dr. Farhat Leal aPTT Coag (Bld) [Time] 53.5 s Normal 39.5-54.2 Th e [facility] Comment on above: Performed By: #### P TTHEP ####[facility] Uvapdixoos375[address] [place], [place] [address]Dr. Farhat Elvis aPTT Coag (Bld) [Time] 126.9 s Critically high 39.5-54. 2 [facility] Comment on above: Performed By: #### P TTHEP ####[facility] Unihxslrxp0022[address] [place], [place] [address]Dr. Farhat Elvis CBC AUTO DIFFon 09-20-2021 BASO # 0.1 103/ul Normal 0.0-0.1 [facility] Comment on above: Performed By: #### C BC ####[facility] Zenyywrvoh084[address] [place], [place] [address]Dr. Farhat Leal Basophils/100 WBC (Bld) 0.7 % Normal 0.2-2.0 [facility] Comment on above: Performed By: #### C BC ####[facility] Mpkteaibrg720[address] [place], [place] [address]Dr. Madelynlorri Leal EO # 0.2 103/ul Normal 0.0-0.7 [facility] Comment on above: Performed By: #### C BC ####[facility] Ypirmpkebd838[address] [place], [place] [address]Dr. Farhat Leal Eosinophils/100 WBC (Bld) 3.2 % Normal 0.9-7.0 [facility] Comment on above: Performed By: #### C BC ####[facility] Zhlntrxaxx2286[address] [place], [place] [address]Dr. Farhat Leal Erythrocyte distribution width (RBC) [Ratio] 12.4 % Normal 11.0-15.0 [facility] Comment on above: Performed By: #### C BC ####[facility] Wribvlvtoe3997[address] [place], [place] [address]Dr. Farhat Leal Hematocrit (Bld) [Volume fraction] 40.1 % Critically low 42.0-54.0 [facility] Comment on above: Performed By: #### C BC ####[facility] Kvuewqcluq0939 [place] [phone]. Farhat Leal Hemoglobin (Bld) [Mass/Vol] 13.4 g/dL Critically low 14.0-18.0 [facility] Comment on above: Performed By: #### C BC ####[facility] Iaxkawwkht6175 [place] [phone]. Farhat Leal IG # 0.08 10e3/ul Critically high 0.00-0.03 [facility] Comment on above: Performed By: #### C BC ####[facility] Rdbcxzapla8166 [place] [phone]. Farhat Leal IG % 1.1 % Critically high 0.0-0.5 [facility] Comment on above: Performed By: #### C BC ####[facility] Lbzhlymoyn40[address] [place] [address]Dr. Farhat Leal LYMPH # 1.3 103/ul Normal 1.2-3.8 [facility] Comment on above: Performed By: #### C BC ####[facility] Opjvbewuvf8[address] [place] [address]Dr. Farhat Leal Lymphocytes/100 WBC (Bld) 17.3 % Critically low 20.5-60.0 [facility] Comment on above: Performed By: #### C BC ####[facility] Rjmwikrnnv2296 [place] [address]Dr. Farhat Leal MANUAL DIFF REQ NO Normal [facility] Comment on above: Performed By: #### C BC ####[facility] Gspvymibro4124 [place] [phone]. Farhat Leal MCH (RBC) [Entitic mass] 31.2 pg Normal 25.9-34.0 [facility] Comment on above: Performed By: #### C BC ####[facility] Dngpnuutos4771 [place] [phone]. Farhat Leal MCHC (RBC) [Mass/Vol] 33.4 g/dL Normal 29.9-35.2 [facility] Comment on above: Performed By: #### C BC ####[facility] Owzpfstqot3773 [place] [phone]. Farhat Leal MCV (RBC) [Entitic vol] 93.3 fL Normal 80.0-94.0 [facility] Comment on above: Performed By: #### C BC ####[facility] Tsljfmcyzw8186 [place] [phone]. Farhat Leal MONO # 0.9 103/ul Critically high 0.3-0.8 [facility] Comment on above: Performed By: #### C BC ####[facility] Tthaebdopr9170 [place] [phone]. Farhat Leal Monocytes/100 WBC (Bld) 12.4 % Critically high 1.7-12.0 [facility] Comment on above: Performed By: #### C BC ####[facility] Djufnpulmx7524[address] [place], [place] [address]Dr. Farhat Leal NEUT # 4.7 103/ul Normal 1.4-6.5 [facility] Comment on above: Performed By: #### C BC ####[facility] Vjmonrdjni[address] [place], [place] [id number]. Farhat Leal Neutrophils/100 WBC (Bld) 65.3 % Normal 43.0-75.0 [facility] Comment on above: Performed By: #### C BC ####[facility] Jskwcyevjo12[address] [place], [place] [id number]. Farhat Leal Platelet mean volume (Bld) [Entitic vol] 9.9 fL Normal 9.5-13.5 [facility] Comment on above: Performed By: #### C BC ####[facility] Poxgqbhozq68[address] [place] [phone]. Farhat Leal PLT 180 103/ul Normal 150-450 [facility] Comment on above: Performed By: #### C BC ####[facility] Yaynckiltq4994 [place] [phone]. Farhat Leal RBC 4.30 106/ul Critically low 4.70-6.10 [facility] Comment on above: Performed By: #### C BC ####[facility] Nbkboupkyk15[address] [place] [address]Dr. Farhat Leal WBC 7.2 103/ul Normal 4.0-11.0 [facility] Comment on above: Performed By: #### C BC ####[facility] Ngngounlba3088[address] [place], [place] [address]Dr. Farhat Elvis PTT HEPARIN MONITORon 2021 aPTT Coag (Bld) [Time] 26.7 s Critically low 39.5-54.2 [facility] Comment on above: Performed By: #### P TTHEP ####[facility] Udzcipuhec4035[address] [place], [place] [address]Dr. Farhat Elvis aPTT Coag (Bld) [Time] 121.0 s Critically high 39.5-54. 2 [facility] Comment on above: Performed By: #### P TTHEP ####[facility] Axzurufcpl0556[address] [place], [place] [address]Dr. Farhat Elvis aPTT Coag (Bld) [Time] 27.6 s Critically low 39.5-54.2 [facility] Comment on above: Performed By: #### P TTHEP ####[facility] Vlecgyllmc25[address] [place], [place] [address]Dr. Farhat Elvis aPTT Coag (Bld) [Time] 139.0 s Critically high 39.5-54. 2 [facility] Comment on above: Performed By: #### P TTHEP ####[facility] Mxfewnfmmq3969[address] [place], [place] [address]Dr. Farhat Elvis CBC AUTO DIFFon 09-19-2021 BASO # 0.0 103/ul Normal 0.0-0.1 [facility] Comment on above: Performed By: #### C BC ####[facility] Rbiktzirls[address] [place], [place] [address]Dr. Farhat Leal Basophils/100 WBC (Bld) 0.5 % Normal 0.2-2.0 [facility] Comment on above: Performed By: #### C BC ####[facility] Lfswtqsflf4817 [place] [phone]. Farhat Leal EO # 0.2 103/ul Normal 0.0-0.7 [facility] Comment on above: Performed By: #### C BC ####[facility] Mezbfomzdr1023 [place] [phone]. Farhat Leal Eosinophils/100 WBC (Bld) 2.6 % Normal 0.9-7.0 [facility] Comment on above: Performed By: #### C BC ####[facility] Azyufkzglt5[address] [place] [address]Dr. Farhat Leal Erythrocyte distribution width (RBC) [Ratio] 12.5 % Normal 11.0-15.0 [facility] Comment on above: Performed By: #### C BC ####[facility] Bbkkgygmrs3995 [place] [address]Dr. Farhat Leal Hematocrit (Bld) [Volume fraction] 39.2 % Critically low 42.0-54.0 [facility] Comment on above: Performed By: #### C BC ####[facility] Yxqhfzuner8645 [place] [address]Dr. Farhat Leal Hemoglobin (Bld) [Mass/Vol] 13.3 g/dL Critically low 14.0-18.0 [facility] Comment on above: Performed By: #### C BC ####[facility] Kzrwhawqso1924 [place] [phone]. Farhat Leal IG # 0.08 10e3/ul Critically high 0.00-0.03 [facility] Comment on above: Performed By: #### C BC ####[facility] Nyvasmpaaa3401 [place] [phone]. Farhat Leal IG % 0.9 % Critically high 0.0-0.5 [facility] Comment on above: Performed By: #### C BC ####[facility] Ughyeoreuj3585 [place] [address]Dr. Farhat Leal LYMPH # 1.5 103/ul Normal 1.2-3.8 [facility] Comment on above: Performed By: #### C BC ####[facility] Omkcfivnhx7181 [place] [phone]. Farhat Leal Lymphocytes/100 WBC (Bld) 17.2 % Critically low 20.5-60.0 [facility] Comment on above: Performed By: #### C BC ####[facility] Rqpytirfxq6776 [place] [phone]. Farhat Elvis MANUAL DIFF REQ NO Normal [facility] Comment on above: Performed By: #### C BC ####[facility] Frlungelwl2298 [place] [phone]. Farhat Elvis MCH (RBC) [Entitic mass] 31.7 pg Normal 25.9-34.0 [facility] Comment on above: Performed By: #### C BC ####[facility] Qfhkbmlpvl7645 [place] [address]Dr. Farhat Elvis MCHC (RBC) [Mass/Vol] 33.9 g/dL Normal 29.9-35.2 [facility] Comment on above: Performed By: #### C BC ####[facility] Cyivyripoz2620 [place] [phone]. Farhat Elvis MCV (RBC) [Entitic vol] 93.3 fL Normal 80.0-94.0 [facility] Comment on above: Performed By: #### C BC ####[facility] Xdajrybvtd2111 [place] [phone]. Farhat Leal MONO # 1.2 103/ul Critically high 0.3-0.8 [facility] Comment on above: Performed By: #### C BC ####[facility] Mdnhrzeuoa3503 [place] [phone]. Farhat Elvis Monocytes/100 WBC (Bld) 13.7 % Critically high 1.7-12.0 [facility] Comment on above: Performed By: #### C BC ####[facility] Mjrhaoqupw3947 [place] [address]Dr. Farhat Leal NEUT # 5.5 103/ul Normal 1.4-6.5 [facility] Comment on above: Performed By: #### C BC ####[facility] Jnkhgaexaa6966 [place] [phone]. Farhat Leal Neutrophils/100 WBC (Bld) 65.1 % Normal 43.0-75.0 [facility] Comment on above: Performed By: #### C BC ####[facility] Dtgevchhkm0203 [place] [phone]. Farhat Leal Platelet mean volume (Bld) [Entitic vol] 9.6 fL Normal 9.5-13.5 [facility] Comment on above: Performed By: #### C BC ####[facility] Luygcafcpb3888 [place] [phone]. Farhat Leal PLT 163 103/ul Normal 150-450 [facility] Comment on above: Performed By: #### C BC ####[facility] Rwsvbvhjfv8711 [place] [address]Dr. Farhat Leal RBC 4.20 106/ul Critically low 4.70-6.10 [facility] Comment on above: Performed By: #### C BC ####[facility] Hmrbhpdugf9531 [place] [address]Dr. Farhat Leal WBC 8.4 103/ul Normal 4.0-11.0 [facility] Comment on above: Performed By: #### C BC ####[facility] Vsferybyct3853 [place] [address]Dr. Farhat Leal POINT OF CARE GLUCOSEon Glucose [Mass/Vol] 300 mg/dL Critically high 74-106 [facility] Comment on above: Performed By: #### P OCGLUC ####[facility] Wzdkzwpima6169 [place] [phone]. Farhat Leal POTASSIUMon 09-19-2021 Potassium [Moles/Vol] 4.9 mmol/L Normal 3.5-5.1 [facility] Comment on above: Performed By: #### K ####[facility] Fpgcgimfvz7574 [place] [address]Dr. Farhat Leal PTT HEPARIN MONITORon 2021 aPTT Coag (Bld) [Time] 23.4 s Critically low 39.5-54.2 [facility] Comment on above: Result Comment: repe ated Performed By: #### P TTHEP ####[facility] Clzrvtttxm[address] [place], [place] [address]Dr. Farhat Leal aPTT Coag (Bld) [Time] 101.2 s Critically high 39.5-54. 2 [facility] Comment on above: Performed By: #### P TTHEP ####[facility] Ahytqpyfah[address] [place], [place] [address]Dr. Farhat Leal aPTT Coag (Bld) [Time] 81.0 s Critically high 39.5-54. 2 [facility] Comment on above: Result Comment: Test Repeated. Critical Value Verified Performed By: #### P TTHEP ####[facility] Nvtdvkvguz[address] [place], [place] [address]Dr. Farhat Leal CBC AUTO DIFFon 09-18-2021 BASO # 0.0 103/ul Normal 0.0-0.1 [facility] Comment on above: Performed By: #### C BC ####[facility] Aosyudmhhd6[address] [place], [place] [address]Dr. Farhat Leal Basophils/100 WBC (Bld) 0.4 % Normal 0.2-2.0 [facility] Comment on above: Performed By: #### C BC ####[facility] Kqlesjmamp28[address] [place], [place] [address]Dr. Farhat Leal EO # 0.1 103/ul Normal 0.0-0.7 [facility] Comment on above: Performed By: #### C BC ####[facility] Czlbrogxnu07[address] [place], [place] [address]Dr. Farhat Leal Eosinophils/100 WBC (Bld) 0.8 % Critically low 0.9-7.0 [facility] Comment on above: Performed By: #### C BC ####[facility] Qprqyebnbp6[address] [place], [place] [address]Dr. Farhat Leal Erythrocyte distribution width (RBC) [Ratio] 12.4 % Normal 11.0-15.0 [facility] Comment on above: Performed By: #### C BC ####[facility] Buzgtpqoyt2179 [place] [address]Dr. Farhat Leal Hematocrit (Bld) [Volume fraction] 41.7 % Critically low 42.0-54.0 [facility] Comment on above: Performed By: #### C BC ####[facility] Bejdouruww2945 [place] [address]Dr. Farhat Leal Hemoglobin (Bld) [Mass/Vol] 14.1 g/dL Normal 14.0-18.0 [facility] Comment on above: Performed By: #### C BC ####[facility] Enyaygjpul4757 [place] [address]Dr. Farhat Leal IG # 0.06 10e3/ul Critically high 0.00-0.03 [facility] Comment on above: Performed By: #### C BC ####[facility] Axycbfqcuw[address] [place], [place] [address]Dr. Farhat Leal IG % 0.6 % Critically high 0.0-0.5 [facility] Comment on above: Performed By: #### C BC ####[facility] Gehsdesecr3496 [place] [address]Dr. Farhat Leal LYMPH # 0.6 103/ul Critically low 1.2-3.8 [facility] Comment on above: Performed By: #### C BC ####[facility] Fdkraswbjn0580 [place] [address]Dr. Farhat Elvis Lymphocytes/100 WBC (Bld) 6.5 % Critically low 20.5-60.0 [facility] Comment on above: Performed By: #### C BC ####[facility] Nfzlybucej9053 [place] [address]Dr. Farhat Leal MANUAL DIFF REQ NO Normal [facility] Comment on above: Performed By: #### C BC ####[facility] Sxhsfmlild8030 [place] [address]Dr. Farhat Elvis MCH (RBC) [Entitic mass] 31.6 pg Normal 25.9-34.0 [facility] Comment on above: Performed By: #### C BC ####[facility] Dzkhnzvzsj3812 [place] [phone]. Farhat Elvis MCHC (RBC) [Mass/Vol] 33.8 g/dL Normal 29.9-35.2 [facility] Comment on above: Performed By: #### C BC ####[facility] Uzarsxlkle0704 [place] [phone]. Farhat Leal MCV (RBC) [Entitic vol] 93.5 fL Normal 80.0-94.0 [facility] Comment on above: Performed By: #### C BC ####[facility] Eadwjiumcb0564 [place] [phone]. Farhat Leal MONO # 1.0 103/ul Critically high 0.3-0.8 [facility] Comment on above: Performed By: #### C BC ####[facility] Ewdfkwmzwu[address] [place], [place] [address]Dr. Farhat Leal Monocytes/100 WBC (Bld) 10.4 % Normal 1.7-12.0 [facility] Comment on above: Performed By: #### C BC ####[facility] [address]vsv[address]mo[address] [place], [place] [id number]. Farhat Leal NEUT # 7.8 103/ul Critically high 1.4-6.5 [facility] Comment on above: Performed By: #### C BC ####[facility] Klwadmxuyu22[address] [place], [place] [id number]. Farhat Leal Neutrophils/100 WBC (Bld) 81.3 % Critically high 43.0-75.0 [facility] Comment on above: Performed By: #### C BC ####[facility] Tthiaxwfdz4630 [place] [phone] Leal Platelet mean volume (Bld) [Entitic vol] 9.9 fL Normal 9.5-13.5 [facility] Comment on above: Performed By: #### C BC ####[facility] Gpbukcgduf1069 [place] [phone]. Farhat Leal PLT 169 103/ul Normal 150-450 [facility] Comment on above: Performed By: #### C BC ####[facility] Cihaqomzuz7320 [place] [phone]. Farhat Leal RBC 4.46 106/ul Critically low 4.70-6.10 [facility] Comment on above: Performed By: #### C BC ####[facility] Fbxrvepszd0808 [place] [phone]. Farhat Elvis WBC 9.6 103/ul Normal 4.0-11.0 [facility] Comment on above: Performed By: #### C BC ####[facility] Khofcqnnfd3887 [place] [phone]. Farhat Leal BASO # 0.0 103/ul Normal 0.0-0.1 [facility] Comment on above: Performed By: #### C BC ####[facility] Icahhhvqnt[address] [place], [place] [address]Dr. Farhat Leal Basophils/100 WBC (Bld) 0.4 % Normal 0.2-2.0 [facility] Comment on above: Performed By: #### C BC ####[facility] Dvfjbqyeof3371 [place] [phone]. Farhat Leal EO # 0.1 103/ul Normal 0.0-0.7 [facility] Comment on above: Performed By: #### C BC ####[facility] Gkoehdalnr7290 [place] [phone]. Farhat Leal Eosinophils/100 WBC (Bld) 1.1 % Normal 0.9-7.0 [facility] Comment on above: Performed By: #### C BC ####[facility] Ppaldfevss[address] [place], [place] [id number]. Madelynlorri Leal Erythrocyte distribution width (RBC) [Ratio] 12.6 % Normal 11.0-15.0 [facility] Comment on above: Performed By: #### C BC ####[facility] Exfrixuvqh[address] [place], [place] [id number]. Farhat Leal Hematocrit (Bld) [Volume fraction] 40.8 % Critically low 42.0-54.0 [facility] Comment on above: Performed By: #### C BC ####[facility] Uladzdtlal3470 [place] [phone]. Farhat Leal Hemoglobin (Bld) [Mass/Vol] 13.6 g/dL Critically low 14.0-18.0 [facility] Comment on above: Performed By: #### C BC ####[facility] Pmimdhotmi5562 [place] [phone]. Farhat Leal IG # 0.08 10e3/ul Critically high 0.00-0.03 [facility] Comment on above: Performed By: #### C BC ####[facility] Kxgkxmynoo9060 [place] [address]Dr. Farhat Leal IG % 0.9 % Critically high 0.0-0.5 [facility] Comment on above: Performed By: #### C BC ####[facility] Prawgwkqrd2384 [place] [address]Dr. Farhat Leal LYMPH # 0.8 103/ul Critically low 1.2-3.8 [facility] Comment on above: Performed By: #### C BC ####[facility] Pxmpuuiiwi4071 [place] [address]Dr. Farhat Leal Lymphocytes/100 WBC (Bld) 8.7 % Critically low 20.5-60.0 [facility] Comment on above: Performed By: #### C BC ####[facility] Aswyvwzlnq0606 [place] [address]Dr. Farhat Leal MANUAL DIFF REQ NO Normal [facility] Comment on above: Performed By: #### C BC ####[facility] Zrdkwqvlbf3722 [place] [phone]. Farhat Leal MCH (RBC) [Entitic mass] 31.6 pg Normal 25.9-34.0 [facility] Comment on above: Performed By: #### C BC ####[facility] Mrmqbgchcg3129 [place] [phone]. Farhat Leal MCHC (RBC) [Mass/Vol] 33.3 g/dL Normal 29.9-35.2 [facility] Comment on above: Performed By: #### C BC ####[facility] Trofuxnvkc3380 [place] [phone]. Farhat Leal MCV (RBC) [Entitic vol] 94.9 fL Critically high 80.0-94.0 [facility] Comment on above: Performed By: #### C BC ####[facility] Xcfmrnwxcr2582 [place] [phone]. Farhat Leal MONO # 1.0 103/ul Critically high 0.3-0.8 [facility] Comment on above: Performed By: #### C BC ####[facility] Fiflwizzov3674 [place] [phone]. Farhat Leal Monocytes/100 WBC (Bld) 11.3 % Normal 1.7-12.0 [facility] Comment on above: Performed By: #### C BC ####[facility] Vwwyurgqnq91[address] [place], [place] [address]Dr. Farhat Leal NEUT # 6.9 103/ul Critically high 1.4-6.5 [facility] Comment on above: Performed By: #### C BC ####[facility] Uulreolzrm3387 [place] [phone]. Farhat Leal Neutrophils/100 WBC (Bld) 77.6 % Critically high 43.0-75.0 [facility] Comment on above: Performed By: #### C BC ####[facility] Lenfzxjhey2302 [place] [phone]. Farhat Elvis Platelet mean volume (Bld) [Entitic vol] 9.7 fL Normal 9.5-13.5 [facility] Comment on above: Performed By: #### C BC ####[facility] Dweeykmtfk4143 [place] [phone]. Farhat Elvis PLT 171 103/ul Normal 150-450 [facility] Comment on above: Performed By: #### C BC ####[facility] Iswdsdqlxk1326 [place] [phone]. Farhat Leal RBC 4.30 106/ul Critically low 4.70-6.10 [facility] Comment on above: Performed By: #### C BC ####[facility] Ehdicdmfzt7798 [place], [place] [address]Yp. Farhat Leal WBC 8.9 103/ul Normal 4.0-11.0 [facility] Comment on above: Performed By: #### C BC ####[facility] Zotivwzvii8061 [place], [place] [address]Wh. Farhat Elvis Covid-19 PCR (CVDTBH)on SARS-CoV-2 (COVID-19) RNA JOSH+probe Ql (Unsp spec) Not detected Normal NOT DETECTED [facility] Comment on above: Result Comment: [...] for this test is supported by the [place] of [employer] and Human Service's declaration that [...] be used). Performed By: #### C VDTBH ####[facility] Jxdlsatlay2275 [place] [phone]. Madelynlorri Leal PROF 14(COMP METB)on 022 Albumin [Mass/Vol] 2.6 g/dL Critically low 3.4-5.0 [facility] Comment on above: Performed By: #### C MP ####[facility] Kadegvqwpa7685 [place] [phone]. Farhat Leal Albumin/Globulin [Mass ratio] 0.7 {ratio} Normal [facility] Comment on above: Performed By: #### C MP ####[facility] Focttjftcn2798 [place] [phone]. Farhat Leal ALP [Catalytic activity/Vol] 88 U/L Normal 46-116 [facility] Comment on above: Performed By: #### C MP ####[facility] Hldafbczzp0427 [place] [phone]. Farhat Leal ALT [Catalytic activity/Vol] 15 U/L Critically low 16-63 [facility] Comment on above: Performed By: #### C MP ####[facility] Cwkbzrowpx5040 [place] [address]Dr. Farhat Leal Anion gap [Moles/Vol] 11.7 mmol/L Normal Th e [facility] Comment on above: Performed By: #### C MP ####[facility] Jjivjjknfd6525 [place] [address]Dr. Farhat Leal AST [Catalytic activity/Vol] 25 U/L Normal 15-37 [facility] Comment on above: Performed By: #### C MP ####[facility] Yjasbqvecg3232 [place] [address]Dr. Farhat Leal Bilirubin [Mass/Vol] 0.6 mg/dL Normal 0.2-1.0 [facility] Comment on above: Performed By: #### C MP ####[facility] Mboqanplwu5621 [place] [address]Dr. Farhat Leal Calcium [Mass/Vol] 8.9 mg/dL Normal 8.5-10.1 [facility] Comment on above: Performed By: #### C MP ####[facility] Rwrnzdyrfh3063 [place] [address]Dr. Farhat Leal Chloride [Moles/Vol] 93 mmol/L Critically low 98-107 [facility] Comment on above: Performed By: #### C MP ####[facility] Wvzzptjnar3240 [place] [address]Dr. Farhat Leal CO2 [Moles/Vol] 28.9 mmol/L Normal 21.0-32.0 [facility] Comment on above: Performed By: #### C MP ####[facility] Ofnyinxrvx2885 [place] [address]Dr. Farhat Leal Creatinine [Mass/Vol] 2.09 mg/dL Critically high 0.70-1.30 [facility] Comment on above: Performed By: #### C MP ####[facility] Hksiacesbg5298 [place] [address]Dr. Farhat Leal EGFR-AF KITTITIAN 38 mL/min/1.73m2 Critically low >=60 [facility] Comment on above: Performed By: #### C MP ####[facility] Suyhuofvmq6999 [place] [address]Dr. Farhat Leal EGFR-NON AF KITTITIAN 31 mL/min/1.73m2 Critically low >=60 [facility] Comment on above: Performed By: #### C MP ####[facility] Wfrzawkuoy0752 [place] [address]Dr. Farhat Leal Globulin (S) [Mass/Vol] 3.7 g/dL Normal [facility] Comment on above: Performed By: #### C MP ####[facility] Foamuzibaj5574 [place] [address]Dr. Farhat Leal Glucose [Mass/Vol] 214 mg/dL Critically high 74-106 T [facility] Comment on above: Performed By: #### C MP ####[facility] Ftcprjjkxk5544 [place] [address]Dr. Farhat Leal Potassium [Moles/Vol] 5.6 mmol/L Critically high 3.5-5.1 [facility] Comment on above: Performed By: #### C MP ####[facility] Bpmzwydjqm4878 [place] [address]Dr. Farhat Leal Protein [Mass/Vol] 6.3 g/dL Critically low 6.4-8.2 Th [facility] Comment on above: Performed By: #### C MP ####[facility] Fqmjufwfow4186 [place] [address]Dr. Farhat Leal Sodium [Moles/Vol] 128 mmol/L Critically low 136-145 Th [facility] Comment on above: Performed By: #### C MP ####[facility] Bweqozysan7395 [place] [phone]. Farhat Leal Urea nitrogen [Mass/Vol] 65.0 mg/dL Critically high 7.0-18.0 [facility] Comment on above: Performed By: #### C MP ####[facility] Rkveolfqrj6829 [place] [phone]. Farhat Elvis Urea nitrogen/Creatinine [Mass ratio] 31.1 mg/mg Normal [facility] Comment on above: Performed By: #### C MP ####[facility] Ukdzjmcybu8589[address] [place], [place] [address]Dr. Farhat Elvis Albumin [Mass/Vol] 2.5 g/dL Critically low 3.4-5.0 Th [facility] Comment on above: Performed By: #### T MYRIAM, CMP ####[facility] Gcuhjqhfzc8865[address] [place], [place] [address]Dr. Farhat Leal Albumin/Globulin [Mass ratio] 0.7 {ratio} Normal [facility] Comment on above: Performed By: #### T MYRIAM, CMP ####[facility] Rxvwszepgz6039[address] [place], [place] [address]Dr. Madelynlorri Leal ALP [Catalytic activity/Vol] 83 U/L Normal 46-116 [facility] Comment on above: Performed By: #### T MYRIAM, CMP ####[facility] Ofnmgexzte5606[address] [place], [place] [address]Dr. Farhat Leal ALT [Catalytic activity/Vol] 16 U/L Normal 16-63 [facility] Comment on above: Performed By: #### T MYRIAM, CMP ####[facility] Trxwvgcjjg130[address] [place], [place] [address]Dr. Farhat Elvis Anion gap [Moles/Vol] 9.7 mmol/L Normal [facility] Comment on above: Performed By: #### T SH, CMP ####[facility] Xiruxanmvt243[address] [place], [place] [address]Dr. Farhat Leal AST [Catalytic activity/Vol] 27 U/L Normal 15-37 [facility] Comment on above: Performed By: #### T MYRIAM, CMP ####[facility] Rkohsxdtnd07[address] [place], [place] [address]Dr. Farhat Leal Bilirubin [Mass/Vol] 0.5 mg/dL Normal 0.2-1.0 [facility] Comment on above: Performed By: #### T SH, CMP ####[facility] Ihecsodrib4566[address] [place], [place] [address]Dr. Farhat Leal Calcium [Mass/Vol] 8.8 mg/dL Normal 8.5-10.1 [facility] Comment on above: Performed By: #### T SH, CMP ####[facility] Wiwpychswv3577[address] [place], [place] [address]Dr. Farhat Leal Chloride [Moles/Vol] 95 mmol/L Critically low 98-107 [facility] Comment on above: Performed By: #### T SH, CMP ####[facility] Xzjqrqqzpd7290[address] [place], [place] [address]Dr. Farhat Leal CO2 [Moles/Vol] 30.5 mmol/L Normal 21.0-32.0 [facility] Comment on above: Performed By: #### T MYRIAM, CMP ####[facility] Cskervasme4137[address] [place], [place] [address]Dr. Farhat Leal Creatinine [Mass/Vol] 2.18 mg/dL Critically high 0.70-1.30 [facility] Comment on above: Performed By: #### T SH, CMP ####[facility] Hxzjxncmkv918[address] [place], [place] [address]Dr. Farhat Leal EGFR-AF [place]ITT[place] 36 mL/min/1.73m2 Critically low >=60 [facility] Comment on above: Performed By: #### T SH, CMP ####[facility] Odkeprvkrm4926[address] [place], [place] [address]Dr. Farhat Leal EGFR-NON AF [place] 30 mL/min/1.73m2 Critically low >=60 [facility] Comment on above: Performed By: #### T SH, CMP ####[facility] Knwawibytx350[address] [place], [place] [address]Dr. Farhat Leal Globulin (S) [Mass/Vol] 3.5 g/dL Normal [facility] Comment on above: Performed By: #### T SH, CMP ####[facility] Wcrobubnyj4212[address] [place], [place] [address]Dr. Farhat Leal Glucose [Mass/Vol] 141 mg/dL Critically high 74-106 T [facility] Comment on above: Performed By: #### T SH, CMP ####[facility] Xihloienoc9834[address] [place], [place] [address]Dr. Farhat Leal Potassium [Moles/Vol] 5.2 mmol/L Critically high 3.5-5.1 [facility] Comment on above: Performed By: #### T SH, CMP ####[facility] Zasxkrdvbu8825[address] [place], [place] [address]Dr. Farhat Leal Protein [Mass/Vol] 6.0 g/dL Critically low 6.4-8.2 Th [facility] Comment on above: Performed By: #### T SH, CMP ####[facility] Mnaycaastc203[address] [place], [place] [address]Dr. Farhat Leal Sodium [Moles/Vol] 130 mmol/L Critically low 136-145 [facility] Comment on above: Performed By: #### T SH, CMP ####[facility] Hjshqtaure[address] [place], [place] [address]Dr. Farhat Elvis Urea nitrogen [Mass/Vol] 63.0 mg/dL Critically high 7.0-18.0 [facility] Comment on above: Performed By: #### T SH, CMP ####[facility] Mvjnaxivnq7198[address] [place], [place] [address]Dr. Farhat Elvis Urea nitrogen/Creatinine [Mass ratio] 28.9 mg/mg Normal [facility] Comment on above: Performed By: #### T SH, CMP ####[facility] Comspvunlw917[address] [place], [place] [address]Dr. Farhat Leal PROTIMEon 09-18-2021 INR Coag (PPP) [Relative time] 1.06 {INR} Normal [facility] Comment on above: Performed By: #### P T, PTT ####[facility] [address] [place], [place] [address]Dr. Farhat Leal INR GUIDELINES SEE BELOW Normal [facility] ue [facility] Comment on above: Result Comment: MALINA RED INR: 2.0 - 3.0 CONDITIONS NOT LISTED BELOW 2.5 - 3.5 FOR PROSTHETIC HEART VALVE REPLACEMENT 2.5 - 3.5 RECURRENT THROMBOSIS Performed By: #### P T, PTT ####[facility] [address] [place] [id number]. Madelynlorri Elvis PT Coag (PPP) [Time] 11.4 s Normal 9.0-11.6 [facility] Comment on above: Performed By: #### P T, PTT ####[facility] [address] [place] [address]Dr. Madelynlorri Elvis PTTon 09-18-2021 aPTT Coag (Bld) [Time] 27.9 s Normal 22.3-36.2 Th [facility] Comment on above: Performed By: #### P T, PTT ####[facility] [address] [place] [address]Dr. Farhat Leal TSHon 09-18-2021 TSH 7.099 uIU/mL Critically high 0.358-3.740 [facility] Comment on above: Performed By: #### T SH, CMP ####[facility] [address] [place], [place] [address]Dr. Farhat Leal US SALOME DOP LEG RTon 09-19-19 US SALOME DOP LEG RT Normal [facility] XR CHEST 1 Von 09-18-2021 XR CHEST 1 V Normal [facility] XR HIP RT 2 3V W PELVISon XR HIP RT 2 3V W PELVIS Normal [facility] Vital Signs Date Time Vital Sign Value Performing Clinician Facility 03-18-2023 13:37-0500 Body temperature 98.01 [degF] [employer] Work Phone: [facility] 03-18-2023 13:37-0500 Diastolic blood pressure 64 mm[Hg] [facility] [employer] Work Phone: [facility] 03-18-2023 13:37-0500 Heart rate 72 /min [facility] [employer] Work Phone: [facility] 03-18-2023 13:37-0500 SaO2% (BldA) [Mass fraction] 98 % Ni Petznick DO Work Phone: [facility] 03-18-2023 13:37-0500 Systolic blood pressure 118 mm[Hg] Ni Petznick DO Work Phone: [facility] 07-20-2022 13:35-0400 Body temperature 97.4 [degF] DO Devon Ball Work Phone: [facility] 07-20-2022 13:35-0400 Diastolic blood pressure 50 mm[Hg] DO Devon Ball Work Phone: [facility] 07-20-2022 13:35-0400 Heart rate 67 /min DO Devon Ball Work Phone: [facility] 07-20-2022 13:35-0400 Respiratory rate 20 /min DO Devon Ball Work Phone: [facility] 07-20-2022 13:35-0400 Systolic blood pressure 98 mm[Hg] DO Devon Ball Work Phone: [facility] 06-29-2022 14:46-0400 Body height 193.04 cm DO Devon Ball Work Phone: [facility] 02-26-2022 13:11-0500 Body temperature 96.6 [degF] Hina Peterson MD Work Phone: [facility] 02-26-2022 13:11-0500 Diastolic blood pressure 75 mm[Hg] Hina Peterson MD Work Phone: [facility] 02-26-2022 13:11-0500 Heart rate 75 /min Hina Peterson MD Work Phone: [facility] 02-26-2022 13:11-0500 Systolic blood pressure 88 mm[Hg] Hina Peterson MD Work Phone: [facility] 02-05-2022 08:29-0500 Body temperature 96.69 [degF] [facility] Work Phone: [facility] 02-05-2022 08:29-0500 Diastolic blood pressure 42 mm[Hg] [facility] Work Phone: [facility] 02-05-2022 08:29-0500 Heart rate 79 /min [facility] Work Phone: [facility] 02-05-2022 08:29-0500 SaO2% (BldA) [Mass fraction] 100 % [facility] Work Phone: [facility] 02-05-2022 08:29-0500 Systolic blood pressure 72 mm[Hg] [facility] Work Phone: [facility] 01-12-2022 11:00-0500 Diastolic blood pressure 54 mm[Hg] Alissa Major BEADING MACHINE OPERATOR.CODE CLERK Work Phone: [facility] 01-12-2022 11:00-0500 Heart rate 88 /min Alissa Major BEADING MACHINE OPERATOR.CODE CLERK Work Phone: [facility] 01-12-2022 11:00-0500 SaO2% (BldA) [Mass fraction] 93 % Alissa Major BEADING MACHINE OPERATOR.CODE CLERK Work Phone: [facility] 01-12-2022 11:00-0500 Systolic blood pressure 96 mm[Hg] Alissa Major BEADING MACHINE OPERATOR.CODE CLERK Work Phone: [facility] 01-12-2022 10:12-0500 Body temperature 97.9 [degF] Alissa Major BEADING MACHINE OPERATOR.CODE CLERK Work Phone: [facility] 01-12-2022 10:12-0500 Respiratory rate 18 /min Alissa Major BEADING MACHINE OPERATOR.CODE CLERK Work Phone: [facility] 11-17-2021 15:59-0400 Body height 193 cm No Reeder DO Work Phone: [facility] 11-17-2021 15:59-0400 Body weight 111.58 kg No Reeder DO Work Phone: [facility] 11-17-2021 15:59-0400 Diastolic blood pressure 59 mm[Hg] No Reeder DO Work Phone: [facility] 11-17-2021 15:59-0400 Heart rate 86 /min No Reeder DO Work Phone: [facility] 11-17-2021 15:59-0400 SaO2% (BldA) [Mass fraction] 97 % No Reeder DO Work Phone: [facility] 11-17-2021 15:59-0400 Systolic blood pressure 104 mm[Hg] No Reeder DO Work Phone: [facility] Encounters Encounter Date Encounter Type Care Provider Facility Start: 06-17-2023 End: 06-17-2023 ambulatory NI CABRERA Not Available Start: 05-19-2023 End: 05-19-2023 ambulatory [facility] Start: 04-11-2023 End: 04-11-2023 ambulatory Devon Moreira Other [email or web address] Other Start: 04-11-2023 Telephone encounter Devon NUNEZ [facility] Start: 03-18-2023 End: 03-18-2023 ambulatory NI CABRREA Not Available Start: 03-18-2023 End: 03-18-2023 Office outpatient visit 25 minutes Ni Cabrera DO Work Phone: 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 ([facility]/HCC) Start: 02-17-2023 End: 02-17-2023 ambulatory Devon Moreira Other [email or web address] Other Start: 02-17-2023 Telephone encounter Devon NUNZE [facility] Start: 01-14-2023 End: 01-14-2023 ambulatory Devon Moreira Other [email or web address] Other Start: 01-14-2023 Sbsq nursing facil c are/day minor complj 15 min [facility] Start: 12-10-2022 End: 12-10-2022 ambulatory Devon Moreira Other [email or web address] Other Start: 12-10-2022 Sbsq nursing facil c are/day minor complj 15 min [facility] Start: 11-12-2022 End: 11-12-2022 ambulatory Devon Moreira Other [email or web address] Other Start: 11-12-2022 Sbsq nursing facil c are/day minor complj 15 min [facility] Start: 10-16-2022 Refill Asia Pike MD Work Phone: [facility] Comment on above: Med Change Request Start: 10-12-2022 End: 10-12-2022 ambulatory Devon Moreira Other [email or web address] Other Start: 10-12-2022 Telephone encounter Devon Moreira [facility] Start: 10-08-2022 End: 10-08-2022 ambulatory Devon Moreira Other [email or web address] Other Start: 10-08-2022 Sbsq nursing facil c are/day new problem 25 min [facility] Start: 09-22-2022 [facility] Start: 09-10-2022 End: 09-10-2022 ambulatory Devon Moreira Other [email or web address] Other Start: 09-10-2022 Sbsq nursing facil c are/day new problem 25 min [facility] Start: 09-09-2022 End: 09-09-2022 ambulatory [facility] Start: 08-06-2022 End: 08-06-2022 ambulatory Devon Moreira Other [email or web address] Other Start: 08-06-2022 Sbsq nursing facil c are/day new problem 25 min Devon Moreira [facility] Start: 07-22-2022 End: 07-22-2022 ambulatory Devon Moreira Other [email or web address] Other Start: 07-22-2022 Telephone encounter [facility] Start: 07-20-2022 End: 07-20-2022 ambulatory Sadia Aguilar Facility:[facility] Start: 07-20-2022 End: 07-20-2022 ambulatory DO Devon Moreira Work Phone: [facility] Work Phone: Start: 07-20-2022 End: 07-20-2022 Discharged Recurring DO Devon Lillie Work Phone: [facility] Work Phone: Start: 07-13-2022 End: 07-13-[address] DEVON MOREIRA Facility:[facility] Start: 07-10-2022 End: 07-10-[address] DEVON MOREIRA Facility:[facility] Start: 07-03-2022 End: 07-03-[address] DEVON MOREIRA Facility:[facility] Start: 06-26-2022 End: 06-26-[address] DEVON MOREIRA Facility:[facility] Start: 06-26-2022 End: 06-26-[address] DEVON MOREIRA Facility:[facility] Start: 06-25-2022 End: 06-25-2022 ambulatory Devon Moreira Other [email or web address] Other Start: 06-25-2022 Sbsq nursing facil c are/day minor complj 15 min Devon Moreira [facility] Start: 06-19-2022 End: 06-19-[address] DEVON MOREIRA Facility:[facility] Start: 06-15-2022 End: 07-15-2022 ambulatory SHAIKH Kate MURRAY Facility:[facility] Start: 06-12-2022 End: 06-12-[address] DOCTOR WALSH Facility:[facility] Start: 06-05-2022 Sbsq nursing facil c are/day new problem 25 min Devon Moreira [facility] Start: 06-05-2022 End: 06-05-[address] DEVON MOREIRA [facility] Other Start: 05-29-2022 End: 05-29-[address] DEVON MOREIRA Facility:[facility] Start: 05-22-2022 End: 05-22-[address] DEVON MOREIRA Facility:[facility] Start: 05-20-2022 End: 05-20-[address] DEVON MOREIRA Facility:[facility] Start: 05-18-2022 End: 06-12-2022 ambulatory SHAIKH Kate MURRAY Facility:[facility] Start: 05-15-2022 End: 05-15-[address] DEVON MOREIRA Facility:[facility] Start: 05-13-2022 End: 05-13-2022 ambulatory Van Olivarez APRN.CODE CLERK Work Phone: [facility] [place] Comment on above: results Start: 05-13-2022 E-mail encounter fro m caregiver Van Olivarez APRN.CODE CLERK Work Phone: [facility] Start: 05-08-2022 End: 05-08-[address] DEVON MOREIRA Facility:[facility] Start: 05-07-2022 End: 05-07-2022 ambulatory Devon Moreira Other [employer] Other Start: 05-07-2022 Sbsq nursing facil c are/day new problem 25 min Devon Moreira [facility] Start: 05-06-2022 End: 05-06-2022 ambulatory [...] Van cortes APRN.CNP Work Phone: [facility] Start: 04-01-2022 End: 04-01-[address] DEVON MOREIRA Facility:[facility] Start: 03-22-2022 Refill Asia Pike MD Work Phone: [facility] Comment on above: Med Change Request Start: 03-21-2022 ambulatory SHAIKH Kate MURRAY Facilit y:[facility] Start: 03-11-2022 End: 03-11-[address] DEVON MOREIRA Facility:[facility] Start: 02-27-2022 Refill Samira Serna [facility] Comment on above: Rx Refills Start: 02-26-2022 End: 02-26-2022 ambulatory DEVON MOREIRA Facility:[facility] Start: 02-26-2022 End: 02-26-2022 Patient encounter procedure [...] Start: 02-05-2022 End: 02-06-2022 ambulatory ARTUR CHEN Facility:[facility] Start: 02-05-2022 End: 02-05-2022 Patient encounter procedure [facility] Work Phone: [facility] Comment on above: Kidney replaced by t ransplant (Primary Dx); 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; shelter current use of immunosuppressive drug Start: 01-26-2022 End: 01-26-[address] DEVON MOREIRA Facility:[facility] Start: 01-20-2022 Telephone encounter Van Olivarez APRN.CODE CLERK Work Phone: [facility] Comment on above: Results Start: 01-19-2022 End: 01-19-[address] DEVON MOREIRA Facility:[facility] Start: 01-16-2022 ambulatory SHAIKH Kate MURRAY Facilit y:[facility] Start: 01-12-2022 End: 01-12-2022 Subsequent hospital visit by physician Alissa Chavira APRN.CODE CLERK Work Phone: Angio Comment on above: ILIANA (acute kidney in jury) ([facility]) [N17.9] Start: 12-30-2021 End: 12-30-2021 ambulatory Paresh Fonseca MD Work Phone: Infectious Disease Comment on above: MRSA bacteremia (Raabella munira Dx); Diabetic foot ulcer with osteomyelitis (HCC) Start: 12-30-2021 End: 12-30-2021 Telemedicine consultation with patient Paresh Fonseca MD Work Phone: [facility] Start: 12-29-2021 End: 12-29-[address] [...] Start: 12-08-2021 Orders Only Artur Burger ry BEADING MACHINE OPERATOR.CODE CLERK Work Phone: [facility] Comment on above: Kidney replaced by t ransplant (Primary Dx) Start: 12-07-2021 ambulatory Paresh Fonseca MD Work Phone: [facility] Comment on above: CoPat Start (copat s top 12/27/21) Start: 12-05-2021 Telephone encounter Paresh Fonseca MD Work Phone: Infectious Disease Comment on above: Patient Update (evus held discussion/) Start: 12-01-2021 Follow-up encounter [facility] Provider [facility] Start: 12-01-2021 Patient encounter procedure [facility] Prov ider [facility] Department Start: 11-23-2021 End: 11-28-2021 [...] encounter Start: 11-14-2021 End: 11-15-2021 [facility] Start: 10-24-2021 End: 11-15-2021 ambulatory SHAIKH Kate MURRAY Facility:[facility] Start: 10-22-2021 End: 10-23-2021 ambulatory ASHLEY GARIBAY Facility:[facility] Start: 10-06-2021 ambulatory Van cortes BEADING MACHINE OPERATOR.CODE CLERK Work Phone: [facility] Start: 09-30-2021 Refill Asia Pike MD Work Phone: [facility] Comment on above: Refill Request Start: 09-19-2021 End: 09-24-2021 Evaluation and management of inpatient DR PROSPER LEES Facility:[facility]1 Start: 09-18-2021 End: 09-19-[address] DEVON MOREIAR Facility:[facility] Start: 07-11-2021 Refill Asia Pike MD Work Phone: [facility] Comment on above: Refill Request Start: 06-05-2021 Telephone encounter Van Olivarez BEADING MACHINE OPERATOR.CODE CLERK Work Phone: [facility] Comment on above: Results Start: 02-05-2021 End: 02-13-2021 ambulatory UNKNOWN PROVIDER Facility:[facility] Procedures Date Procedure Procedure Detail Performing Clinician Start: 05-19-2023 Follow-up visit Follow-up CAITY IBRAHIM Start: 03-18-2023 Hemoglobin glycosyla rk a1c Ni Cabrera DO Work Phone: Start: 02-05-2022 Creatinine other source Asia Pike MD Work Phone: Start: 02-05-2022 Urnls dip stick/tabl et rgnt auto w/o microscopy Asia Pike MD Work Phone: Start: 01-12-2022 Prothrombin time Alissa Chavira BEADING MACHINE OPERATOR.CODE CLERK Work Phone: Start: 12-01-2021 PACEMAKER CLINIC CHECK [facility] Provider Start: 11-29-2021 Microscopic examinat ion of blood, culture DR PROSPER LEES Comment on above: Performed By: #### B [id number] ####[facility] [address] [place], [place] [address]UySkylar Leal Start: 11-27-2021 Insertion of Infusio n [...] renal transplant KIDNEY TRANSPLANT STATUS Van Sher BEADING MACHINE OPERATOR.CODE CLERK Work Phone: History of renal transplant Kidney replaced by transplant Artur Chen BEADING MACHINE OPERATOR.CODE CLERK Work Phone: History of renal transplant Kidney replaced by transplant [facility] Work Phone: History of renal transplant Devon Moreira Other History of renal transplant Kidney replaced by transplant Asia Pike MD Work Phone: History of renal transplant Devon Moreira Other Plan of Treatment Date Care Activity Detail Author Start: 06-17-2023 End: 06-17-2023 Patient encounter procedure 06/17/2023 2:15 PM EDT Office Visit [facility] [address] [place] [address] Ni Cabrera DO [address] [place] [address] [facility] [address] Start: 06-16-2023 Hemoglobin A1c measurement Diabetes: Hemoglobin A1C [facility] Start: 02-26-2023 BP CONTROLLED (<130/80) BP CONTROLLE D (<130/80) [facility] Start: 02-05-2023 BP CONTROLLED (<130/80) BP CONTROLLE D (<130/80) [facility] Start: 01-12-2023 BP CONTROLLED (<130/80) BP CONTROLLE D (<130/80) [facility] Start: 11-17-2022 BP CONTROLLED (<130/80) BP CONTROLLE D (<130/80) [facility] Start: 10-16-2022 Influenza vaccination C [facility] Start: 05-15-2022 Medicare Annual Wellness (AWV) Medicare Annual Wellness (AWV) [facility] Start: 04-08-2022 BP CONTROLLED (<130/80) BP CONTROLLE D (<130/80) [facility] Start: 02-15-2022 ADVANCE DIRECTIVE DISCUSSION ADVANCE DIRECTIVE DISCUSSION [facility] Start: 02-15-2022 DEPRESSION ASSESSMENT DEPRESSION ASS ESSMENT [facility] Start: 02-05-2022 COVID-19 VACCINE (5 - Yung risk series) COVID-19 VACCINE (5 - Yung risk series) [facility] Start: 11-27-2021 COVID-19 VACCINE (4 - Booster for Yung series) COVID-19 VACCINE (4 - Booster for Yung series) [facility] Start: 11-04-2021 Hemoglobin A1c/Hemoglobin.total in Blood HBA1C [facility] Start: 10-16-2021 Influenza vaccination C [facility] Start: 03-26-2021 COVID-19 VACCINE (3 - Yung risk 3-dose series) COVID-19 VACCINE (3 - Yung risk 3-dose series) [facility] Start: 03-26-2021 COVID-19 VACCINE (3 - Yung risk series) COVID-19 VACCINE (3 - Yung risk series) [facility] Start: 02-15-2021 ADVANCE DIRECTIVE DISCUSSION ADVANCE DIRECTIVE DISCUSSION [facility] Start: 02-15-2021 DEPRESSION ASSESSMENT DEPRESSION ASS ESSMENT [facility] Start: 01-05-2016 Hepatitis B screening URINE AL BUMIN:CREATININE RATIO [facility] Start: 07-31-2015 Pneumococcal Vaccine : 65+ Years (3 - PCV) Pneumococcal Vaccine: 65+ Years (3 - PCV) [facility] Start: 04-06-2015 Hemoglobin A1c/Hemoglobin.total in Blood HBA1C [facility] Start: 11-22-2010 Hepatitis B surface antibody level LDL CHOLESTEROL [facility] Start: 2009 ADULT PREVNAR-13 ADULT PREVNAR-13 Cl [facility] Start: 2009 PNEUMOVAX AGE 65 AND OVER WITH 5YR LOOKBACK (#1) PNEUMOVAX AGE 65 AND OVER WITH 5YR LOOKBACK (#1) [facility] Start: 1994 SHINGRIX VACCINE (1 of 2) SHINGRIX VACCINE (1 of 2) [facility] Start: 10-18-1963 HEPATITIS A (1 of 2 - Risk 2-dose series) HEPATITIS A (1 of 2 - Risk 2-dose series) [facility] Start: 10-18-1963 Hepatitis A Vaccine (1 of 2 - Risk 2-dose series) Hepatitis A Vaccine (1 of 2 - Risk 2-dose series) [facility] Start: 10-18-1963 SHINGRIX VACCINE (1 of 2) SHINGRIX VACCINE (1 of 2) [facility] Start: 10-18-1963 Urine microalbumin profile [facility] Start: 1962 ANNUAL PCP TEAM HUMAN RESOURCES MANAGER MANUFACTURING MATTHEW DISEASE VISIT ANNUAL PCP TEAM CHRONIC DISEASE VISIT [facility] Start: 1956 Adult depression screening assessment DEPRESSION SCREENING [facility] Start: 1954 3 comp foot exam completed DIABETIC FOOT EXAM [facility] Start: 1954 Glaucoma screening Diabetes: R etinopathy Screening [facility] Start: 1954 Hepatitis C antibody , confirmatory test DILATED RETINAL EXAM [facility] Start: 1950 Pneumococcal Vaccine : 65+ (1 - PCV) Pneumococcal Vaccine: 65+ (1 - PCV) [facility] Start: 1950 PNEUMOCOCCAL: 65+ (1 - PCV) PNEUMOCOCCAL: 65+ (1 - PCV) [facility] Start: 1945 HEPATITIS A (1 of 2 - Risk 2-dose series) HEPATITIS A (1 of 2 - Risk 2-dose series) [facility] URINALYSIS, REFLEX MICROSCOPIC URINALYSIS, REFLEX MICROSCOPIC Lab Routine Screening for genitourinary condition Ordered: 10/06/2021 [facility] Work Phone: Comment on above: Ordered: 10/06/2021 URINALYSIS, REFLEX MICROSCOPIC URINALYSIS, REFLEX MICROSCOPIC Lab Routine Screening for genitourinary condition Ordered: 04/02/2022 [facility] Work Phone: Comment on above: Ordered: 04/02/2022 End: 11-17-2022 US LEG ARTERIAL PERIPH [facility] LAB US LEG ARTERIAL PERIPH [facility] Vascular Lab Routine PAD (peripheral artery disease) (HCC) Nonhealing ulcer of heel (HCC) 1 Occurrences starting 11/17/2021 until 11/17/2022 [facility] Work Phone: Comment on above: 1 Occurrences starti ng 11/17/2021 until 11/17/2022 End: 11-17-2022 US LEG VEIN DVT [facility] US LEG VEIN DVT [facility] Vascular Lab Routine Acute deep vein thrombosis (DVT) of proximal end of right lower extremity (HCC) 1 Occurrences starting 11/17/2021 until 11/17/2022 [facility] Work Phone: Comment on above: 1 Occurrences starti ng 11/17/2021 until 11/17/2022 [facility] & VAS DANIEL [facility] & VAS [facility] Immunizations Immunization Date Immunization Notes Care Provider Fa [facility] 12-11-2021 COVID-19 booster vaccine, age 12+ yr, bivalent (PFIZER-BIONTECH) Paresh Fonseca MD Work Phone: [facility] 12-11-2021 influenza, high-dose , quadrivalent vaccine (FLUZONE HIGH DOSE QUADRIVALENT) Paresh Fonseca MD Work Phone: [facility] 12-11-2021 influenza virus vaccine, unspecified formulation [facility] 10-24-2021 influenza, high dose [...] influenza virus vaccine, unspecified formulation Van Olivarez BEADING MACHINE OPERATOR.CODE CLERK Work Phone: [facility] 12-17-2007 influenza virus vaccine, unspecified formulation Van Olivarez BEADING MACHINE OPERATOR.CODE CLERK Work Phone: [facility] Work Phone: 02-11-2006 influenza virus vaccine, unspecified formulation Van Olivarez BEADING MACHINE OPERATOR.CODE CLERK Work Phone: [facility] Work Phone: 12-07-2003 influenza virus vaccine, unspecified formulation Van Olivarez BEADING MACHINE OPERATOR.CODE CLERK Work Phone: [facility] Work Phone: 12-07-2003 pneumococcal polysaccharide vaccine, 23 valent Van Olivarez BEADING MACHINE OPERATOR.[facility] Work Phone: [facility] Work Phone: NEGATED: Highlighted row has not occurred!12-10-2021 COVID-19 booster vaccine, age 12+ yr, bivalent (PFIZER-BIONTP[employer]ella.com) Paresh Fonseca MD Work Phone: [facility] NEGATED: Highlighted row has not occurred!12-10-2021 influenza, high-dose, quadrivalent vaccine (FLUZONE HIGH DOSE QUADRIVALENT) Paresh Fonseca MD Work Phone: [facility] Payers Date Payer Category Payer Medicare MEDICARE MEDICAR E A AND B [id number] 2009-Present [phone] [address] [address] [place] [address] Medicare [id number] 2009 Medicare [id number] 2009 Unknown [employer] [place] [employer] [place] MEDIC[employer] SUPPLEMENT [id number] 2009-Present [phone] [id number] [facility] [place] [address] Indemnity [id number] 2009 Unknown [id number] 2009 Unknown [id number] 2009 Unknown [id number] 1959 Medicare [id number] 1959 Self-pay 1944 Unknown [id number] 1944 Unknown [id number] 1944 Unknown [id number] 1944 Unknown [id number] [id number] 1944 Unknown [id number] [id number] 1944 Unknown [id number] [id number] 1944 Unknown [id number] [id number] 1944 Unknown [id number] [id number] 1944 Unknown [id number] [id number] 1944 Unknown [id number] [id number] 1944 Unknown [id number] [id number] 1944 Unknown [id number] 2.16.840.1.531734.3.579.2.593 1945 Unknown [id number] 2.16.840.1.585155.3.579.2.593 1945 Unknown [id number] 2.16.840.1.699261.3.579.2.593 1944 Unknown [id number] 2.16.840.1.559654.3.579.2.593 1944 Unknown [id number] 2.16.840.1.328577.3.579.2.593 1944 Unknown [id number] 2.16.840.1.529029.3.579.2.593 1944 Unknown [id number] 2.16.840.1.741409.3.579.2.593 1944 Unknown [id number] 2.16.840.1.949552.3.579.2.593 1944 Unknown [id number] 2.16.840.1.020629.3.579.2.593 1944 Unknown [id number] 2.16.840.1.367317.3.579.2.593 1944 Unknown [id number] 2.16.840.1.508426.3.579.2.593 1944 Unknown [id number] 2.16.840.1.718089.3.579.2.593 1944 Unknown [id number] 2.16.840.1.138980.3.579.2.593 1944 Unknown [id number] 2.16.840.1.488785.3.579.2.593 1944 Unknown [id number] 2.16.840.1.141164.3.579.2.593 1944 Unknown [id number] 2.16.840.1.249346.3.579.2.593 1944 Unknown [id number] 2.16.840.1.390206.3.579.2.593 1944 Unknown [id number] 2.16.840.1.335700.3.579.2.593 1944 Unknown [id number] 2.16.840.1.982611.3.579.2.593 1944 Unknown [id number] 2.16.840.1.207609.3.579.2.593 1944 Unknown [id number] 2.16.840.1.866290.3.579.2.593 1944 Unknown [id number] 2.16.840.1.321417.3.579.2.593 1944 Unknown [id number] 2.16.840.1.434440.3.579.2.593 1944 Unknown [id number] 2.16.840.1.916928.3.579.2.593 1944 Unknown [id number] 2.16.840.1.193017.3.579.2.593 1944 Unknown [id number] 2.16.840.1.314130.3.579.2.593 1944 Unknown [id number] 2.16.840.1.238142.3.579.2.593 1944 Unknown [id number] 2.16.840.1.149761.3.579.2.593 1944 Unknown [id number] 2.16.840.1.549284.3.579.2.593 1944 Unknown [id number] 2.16.840.1.670252.3.579.2.593 1944 Unknown [id number] 2.16.840.1.027755.3.579.2.593 1944 Unknown [id number] 2.16.840.1.520619.3.579.2.593 1944 Unknown [id number] 2.16.840.1.554561.3.579.2.593 1944 Unknown [id number] 2.16.840.1.711249.3.579.2.593 1944 Unknown [id number] 2.16.840.1.252848.3.579.2.593 1944 Unknown [id number] 2.16.840.1.704504.3.579.2.593 1944 Unknown [id number] 2.16.840.1.736211.3.579.2.125 9 1945 Unknown [id number] 2.16.840.1.955789.3.579.2.125 9 Medicare Medicare Outpatient [id number] 2T [id number] Unknown [id number] 2.16.840.1.550481.3.579.2.593 Unknown [id number] 2.16.840.1.716473.3.579.2.593 Unknown [id number] 2.16.840.1.659081.3.579.2.531 Social History Date Type Detail Facility Start: 03-09-2011 End: 07-07-2022 Tobacco smoking status SCIS Ex-smoker [facility] Work Phone: End: 02-15-1975 History of tobacco use Current smoker [facility] Work Phone: End: 02-15-1975 History of tobacco use Cigarette Smoker [facility] Work Phone: Start: 04-08-2021 End: 02-26-2022 Alcohol intake Current drinker of alcohol (finding) [facility] Start: 1945 Sex Assigned At Not on file [facility] Start: 03-09-2011 End: 10-20-2022 Cigarettes smoked current (pack per day) - Reported 1 [facility] Work Phone: Start: 03-09-2011 End: 02-26-2022 Tobacco use and exposure Smokeless tobacco non-user [facility] Start: 09-25-2021 History SDOH Financial 5 [facility] Start: 09-25-2021 History SDOH Food Worry 1 [facility] Start: 09-25-2021 History SDOH Transpo rt Med 2 [facility] Start: 09-14-2021 End: 01-12-2022 Exposure to SARS-CoV-2 (event) Not sure [facility] Start: 02-26-2022 End: 10-20-2022 Sex Assigned At [facility] Work Phone: Start: 1945 Sex Assigned At Male F [facility] How hard is it for y ou to pay for the very basics like food, housing, medical care, and heating Not hard at all [facility] Work Phone: (I/We) worried [place] (my/our) food would run out before (I/we) got money to buy more. Never true [facility] Work Phone: In the past 12 month s, was there a time when you were not able to pay the mortgage or rent on time? No [facility] Work Phone: Start: 03-18-2023 Alcohol intake Ex-drinker (finding) [facility] How often to you hav e a drink containing alcohol? Never [facility] Medical Equipment Procedure Code Equipment Code Equipment Original Text Equipment Identifier Dates Tray Powerline S urecuff 5fr Polyurethane Catheter 1 Lumen Microintroducer - [id number] Start: 12-06-2021 Clinical Notes 06-05-2021 to [...] at about 50-60 systolic. patient with friend/ fast food delivery driver from facility, we will take patient to the ER for evaluation ---- --------- Per dr. Alvarez 03/2021 Mr. Almonte, [place] , presents to clinic for routine follow [...] of the right coronary artery with robust aklf-ez-xugyk collaterals. 5. Normal global left ventricular systolic [...] Follow up with Dr. Galvez in the [facility] in the next 2 weeks; he may follow up with Dr. Orosco as needed for interventional issues. 5. Follow up wi (more content not included)... [facility] 04-11-2023 Evaluation note Encounter Date Diagnosis [...] (ICD-10 - Z89.619) WC dependent. 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 He is being transported by a fast food delivery driver. 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 CONTINUOUS BLOOD GLUC SENSOR (Bling NationSTYLE SHAAN 14 DAY SENSOR) MISC Inject 1 [...] the morning. documented in this encounterCass [facility] [id number] Evaluation note* Encounter Date Diagnosis Assessment Notes [...] are maintaining regular scheduled appts with their lockstitch front edge tape sewer. No bleeding complications Dec, Hyperlipidemia LDL goal [...] fluid balance and to avoid dehydration. Dec, shelter (current) use of insulin (ICD-10 - Z79.4) [email or web address] Other 10-26-2023 Evaluation note* Encounter Date Diagnosis Assessment Notes Treatment Notes Treatment Clinical Notes Nov, Longstanding persistent atrial fibrillation (ICD-10 - I48.11) This patient is in NSR or rate controlled. This patient is anticoagulated to prevent thromboembolic events. They are maintaining regular scheduled appts with their lockstitch front edge tape sewer. No bleeding complications Nov, Hyperlipidemia LDL goal [...] Z94.0) Monthly labs to transplant clinic Nov, shelter (current) use of insulin (ICD-10 - Z79.4) [email or web address] Other 09-28-2023 Evaluation note* Encounter Date Diagnosis [...] are maintaining regular scheduled appts with their lockstitch front edge tape sewer. No bleeding complications Oct, Type 1 diabetes [...] Continue routine surveillance labs. Oct, 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 (current) use of insulin (ICD-10 - Z79.4) [email or web address] Other 09-01-2023 Miscellaneous Notes* Telephone Encounter - Mary Martinez - 10/16/2022 1:08 PM EDT Pharmacy comment: REQUEST FOR 90 DAYS PRESCRIPTION. DX Code Needed. 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 No bleeding complications Sep, Type 1 diabetes [...] risk for cerebrovascular and cardiovascular disease. Sep, shelter (current) use of insulin (ICD-10 - Z79.4) Sep, Kidney transplant status (ICD-10 - Z94.0) f/u transplant clinic Continue surveillance labs [email or web address] Other 08-08-2023 Miscellaneous Notes* Telephone Encounter - Ariadna Mcdowell Tech - 09/22/2022 8:58 AM EDT Pharmacy requesting refills as follows: Requested Prescriptions Pending Prescriptions Disp Refills tacrolimus IR (PROGRAF) 1 mg capsule Sig: Take 1 capsule by mouth DAILY AT 6 PM. Please review and advise. Ariadna Mcdowell, documented in this encounterOhio[facility] Center07-27-2023 Evaluation note* Encounter Date Diagnosis Assessment Notes Treatment Notes Treatment Clinical Notes Aug, Longstanding persistent atrial fibrillation (ICD-10 - I48.11) This patient is in NSR or rate controlled. This patient is anticoagulated to prevent thromboembolic events. They are maintaining regular scheduled appts with their lockstitch front edge tape sewer. No s/s bleeding Aug, Type 1 diabetes [...] risk for cerebrovascular and cardiovascular disease. Aug, shelter (current) use of insulin (ICD-10 - Z79.4) Aug, Kidney transplant status (ICD-10 - Z94.0) Continue close surveillance w/ labs [email or web address] Other 07-26-2023 NoteUT Electrophysiology Consult Note Reason [...] at about 50-60 systolic. patient with friend/ fast food delivery driver from facility, we will take patient to the ER for evaluation --------- Per dr. Alvarez 03/2021 Mr. Almonte, [place] , presents to clinic for routine follow [...] of the right coronary artery with robust lbtz-rs-qtqza collaterals. 5. Normal global left ventricular systolic [...] Follow up with Dr. Galvez in the [facility] in the next 2 weeks; he may follow up with Dr. Orosco as needed for interventional issues. 5. Follow up with Dr. Devon Moreira as scheduled. PMH: Past Medical History: Diagnosis Date Abnormal ECG Arrhythmia Atrial fibrillation (CMS/HCC) Chronic kidney disease Coronary artery disease Diabetes mellitus (CMS/HCC) (more content not included)...[facility]07-26-2023 NotePatient here for 1.5 year follow up and device check. Lightheaded in the office today, as BP is very low. He denies chest pain, SOB, palpitations, and bleeding on warfarin. Had routine labs last week. Review of Systems Musculoskeletal: Positive for arthritis, joint pain and myalgias. Neurological: Positive for light-headedness. All other systems reviewed and are negative.[facility] 08-06-2022 Evaluation note* Encounter Date Diagnosis [...] are maintaining regular scheduled appts with their lockstitch front edge tape sewer. No bleeding complications Jul, Type 1 diabetes [...] cerebrovascular and cardiovascular disease. Jul, 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 (current) use of insulin (ICD-10 - Z79.4) Jul, Kidney transplant status (ICD-10 - Z94.0) Monthly labs, ongoing surveillance from transplant clinic [email or web address] Other 05-15-2023 Progress note Author Sadia Aguilar [facility] June 29, 2022 2:47pm Note Date/Time June 29, 2022 2:46p m [facility] [address] [place] [address] Wound Center Provider Note Signed Patient: Alex Almonte MR#: [id number] : 1945 Acct:[id number] Age/Sex: 76 / M Copies to: DO Sadia Whyte, BEADING MACHINE OPERATOR~ HPI Date of Visit Date of Visit: Date of Service: 06/29/2022 Time of Service: 14:45 Narrative HPI: 12/30/21 Alex is a 76 year old male presenting to [facility] wound care for aninitial visit for eval and treatment of a sacral/coccyx area pressure ulcer. He resides at [facility]. There is an MOTIVATIONAL SPEAKER present for the visit. Medicalhoney gel will [...] from initial visit here Mode of Arrival/ Locker Operator: Facility vehicle Assistive Device Used Today: Wheelchair [...] Ulcer/Injury Staging: Unstageable Bed Appearance: Beefy Red, [place], Yellow and Rolled Edges Percent of Wound [...] <Electronically signed by DAVID Aguilar> 06/29/22 1447 [facility] Work Phone: 1(143) 252-118505-11-2023 Evaluation note* Encounter Date Diagnosis Assessment Notes [...] are maintaining regular scheduled appts with their lockstitch front edge tape sewer. No bleeding complications June, Hyperlipidemia LDL goal <100 (ICD-10 - E78.5) Instructed on diet and exercise with continued statin therapy.Discussed the beneficial effects of lowering cholesterol in reducing the risk for cerebrovascular and cardiovascular disease. June, shelter (current) use of insulin (ICD-10 - Z79.4) June, Kidney transplant status (ICD-10 - Z94.0) No s/s rejection [email or web address] Other 04-24-2023 Progress note Author Sadia Aguilar [facility] June 08, 2022 2:10pm Note Date/Time June 08, 2022 2:1 0pm [facility] [address] [place] [address] Wound Center Provider Note Signed Patient: Alex Almonte MR#: [id number] : 1945 Acct:[id number] Age/Sex: 76 / M Copies to: DO Sadia Whyte APRN~ HPI Date of Visit Date of Visit: Date of Service: 06/08/2022 Time of Service: 14:07 Narrative HPI: 12/30/21 Alex is a 76 year old male presenting to [facility] wound care for aninitial visit for eval and treatment of a sacral/coccyx area pressure ulcer. He resides at [facility]. There is an MOTIVATIONAL SPEAKER present for the visit. Medicalhoney gel will [...] from initial visit here Mode of Arrival/ Locker Operator: Facility vehicle Assistive Device Used Today: Wheelchair [...] Ulcer/Injury Staging: Unstageable Bed Appearance: Beefy Red, [place], Yellow and Rolled Edges Percent of Wound [...] Spent With Patient (min): 15 Dictated By: Sadai Aguilar APRN DD/ [id number] Signed By: <Electronically signed by DAVID Aguilar> 06/08/22 1410 [facility] Work Phone: 1(975) 295-486304-21-2023 Evaluation note* Encounter Date Diagnosis Assessment Notes [...] are maintaining regular scheduled appts with their lockstitch front edge tape sewer. May, 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 (current) use of insulin (ICD-10 - Z79.4) May, Kidney transplant status (ICD-10 - Z94.0) routine labs per clinic. 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 No open ulcerations present Pain controlled [email or web address] Other 03-27-2023 Progress note Author Sadia Aguilar [facility] May 11, 2022 1:41pm Note Date/Time May 11, 2022 1:4 0pm [facility] [address] [place] [address] Wound Center Provider Note Signed Patient: Alex Almonte MR#: [id number] : 1945 Acct:[id number] Age/Sex: 76 / M Copies to: DO Sadia Whyte, BEADING MACHINE OPERATOR~ HPI Date of Visit Date of Visit: Date of Service: 05/11/2022 Time of Service: 13:38 Narrative HPI: 12/30/21 Alex is a 76 year old male presenting to [facility] wound care for aninitial visit for eval and treatment of a sacral/coccyx area pressure ulcer. He resides at [facility]. There is an MOTIVATIONAL SPEAKER present for the visit. Medicalhoney gel will [...] from initial visit here Mode of Arrival/ Locker Operator: Facility vehicle Assistive Device Used Today: Wheelchair [...] Ulcer/Injury Staging: Unstageable Bed Appearance: Beefy Red, [place] and Yellow Percent of Wound Bed Granulated/Red: [...] by DAVID Aguilar> 05/11/22 1341 [facility] Work Phone: 1(997) 210-821203-23-2023 Evaluation note* Encounter Date Diagnosis Assessment Notes [...] are maintaining regular scheduled appts with their lockstitch front edge tape sewer. Apr, Type 1 diabetes mellitus with hyperglycemia [...] reviewed at the office visit Apr, 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 (current) use of insulin (ICD-10 - Z79.4) Apr, Kidney transplant status (ICD-10 - Z94.0) Serial labs by clinic tatiana Oshea [employer] Other 03-10-2023 NoteHNO ID: [id number] Author: Keyur Brown MD Service: ? Author Type: Physician Type: Progress Notes Filed: 04/24/2022 10:32 AM Note Text: Encounter opened in error, patient not seen.[facility]02-28-2023 Progress note Author Sadia Aguilar [facility] April 14, 2022 2:19pm Note Date/Time April 14, 2022 2:18pm [facility] [address] [place] [address] Wound Center Provider Note Signed Patient: Alex Almonte MR#: [id number] : 1945 Acct:[id number] Age/Sex: 76 / M Copies to: DO Sadia Whyte APRN~ HPI Date of Visit Date of Visit: Date of Service: 04/14/2022 Time of Service: 14:18 Narrative HPI: 12/30/21 Alex is a 76 year old male presenting to [facility] wound care for aninitial visit for eval and treatment of a sacral/coccyx area pressure ulcer. He resides at [facility]. There is an MOTIVATIONAL SPEAKER present for the visit. Medicalhoney gel will [...] from initial visit here Mode of Arrival/ Locker Operator: Facility vehicle Assistive Device Used Today: Wheelchair [...] Ulcer/Injury Staging: Unstageable Bed Appearance: Beefy Red, [place] and Yellow Percent of Wound Bed Granulated/Red: [...] By: <Electronically signed by DAVID Aguilar> 04/14/221418 [facility] Work Phone: 1(482) 758-716802-16-2023 NotePatient Outreach (KIMBERLY) ALEX ALMONTE ([id number]) 1945 M TRN Date Time Provider Department 04/02/22 VAN OLIVAREZ During your visit today, we recorded the following information about you: Allergies As of Date: 04/02/2022 Noted Allergy Reaction PYRIDOSTIGMINE BROMIDE 08/04/2021 8 - GI Upset Date Reviewed: 02/26/2022 Reviewed by: Braden Abel MA - Fully Assessed Visit Diagnosis:Screening for genitourinary condition [Z13.89] Order(s):URINALYSIS, REFLEX MICROSCOPIC [LHX3021] Order #: [id number] Prescriptions as of 04/06/2022 - tacrolimus IR [...] by mouth daily with lunch. 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 DIABETES UNCOMPL ADULT-UNCONTRLLED [[id number]] 02/24/2002 KIDNEY TRANSPLANT STATUS [Z94.0] 09/07/2003 PROPHYLACTIC IMMUNOTHERAPY [Z29.8] 07/30/2006 CARE HOME STEROIDS [BBC7611] 07/30/2006 VITAMIN D DEFICIENCY NOS [E55.9] 09/07/2008 [...] diabetes mellitus with diabetic peripher*11/29/2021 Atherosclerosis of [place] artery of extremity w*11/29/2021 Malnutrition of moderate degree (HCC) [E44.0] 12/01/2021 Dermatitis associated with moisture [L30.8] 12/04/2021 Encounter Status:Closed by LUISA HOBBSUSER on 04/06/22[facility] 03-30-2022 Miscellaneous Notes* Telephone Encounter [...] to pharmacy. Katina Duque documented in this encounterOhio[facility]02-07-2023 Progress note Author Sadia Aguilar [facility] March 24, 2022 3:00pm Note Date/Time March 24, 2022 2 :59pm [facility] [address] [place] [address] Wound Center Provider Note Signed Patient: Alex Almonte MR#: [id number] : 1945 Acct:[id number] Age/Sex: 76 / M Copies to: Devon Moreira,DO Sadia Aguilar, BEADING MACHINE OPERATOR~ HPI Date of Visit Date of Visit: Date of Service: 03/24/2022 Time of Service: 14:58 Narrative HPI: 12/30/21 Alex is a 76 year old male presenting to [facility] wound care for aninitial visit for eval and treatment of a sacral/coccyx area pressure ulcer. He resides at [facility]. There is an MOTIVATIONAL SPEAKER present for the visit. Medicalhoney gel will [...] from initial visit here Mode of Arrival/ Locker Operator: Facility vehicle Assistive Device Used Today: Wheelchair [...] Ulcer/Injury Staging: Unstageable Bed Appearance: Beefy Red, [place] and Yellow Percent of Wound Bed Granulated/Red: [...] by DAVID Aguilar> 03/24/22 1500 [facility] Work Phone: 1(196) 178-902201-17-2023 Progress note Author Sadia Aguilar [facility] March 03, 2022 2:41pm Note Date/Time March 03, 2022 2 :41pm [facility] [address] [place] [address] Wound Center Provider Note Signed Patient: Alex Almonte MR#: [id number] : 1945 Acct:[id number] Age/Sex: 76 / M Copies to: DO Sadia Whyte APRN~ HPI Date of Visit Date of Visit: Date of Service: 03/03/2022 Time of Service: 14:38 Narrative HPI: 12/30/21 Alex is a 76 year old male presenting to [facility] wound care for aninitial visit for eval and treatment of a sacral/coccyx area pressure ulcer. He resides at [facility]. There is an MOTIVATIONAL SPEAKER present for the visit. Medicalhoney gel will [...] from initial visit here Mode of Arrival/ Locker Operator: Facility vehicle Assistive Device Used Today: Wheelchair [...] Ulcer Pressure Ulcer/Injury Staging: Unstageable Bed Appearance: [place] and Yellow Percent of Wound Bed Granulated/Red: 90 Percent of Devitalized: 10 Length (cm): 2.2 Width (cm): 1.8 Depth (cm): 1.9 CM Sq: 3.960 Surrounding Tissue Appearance: [place], Hyperpigmented and Satellite lesions Surrounding Tissue Temp: [...] <Electronically signed by DAVID Aguilar> 03/03/22 1441 [facility] Work Phone: 1(791) 360-617601-13-2023 Miscellaneous Notes* Telephone Encounter - RAUL Davidson - 02/27/2022 10:24 AM EST Patient phones requesting refills as follows: Per pts sister takes 1 mg in AM and 1 mg in PM Requested Prescriptions Pending Prescriptions Disp Refills tacrolimus IR (PROGRAF) 1 mg capsule Sig: Take 2 capsules by mouth DAILY (6 AM). Please review and advise. RAUL Davidson documented in this encounterOhiohealth [facility] Medical Center01-12-2023 NoteHNO ID: [id number] Author: Hina Peterson MD Service: ? Author Type: Physician Type: Progress Notes Filed: 02/26/2022 4:31 PM Note Text: Heart , Vascular and Thoracic [place] DEPARTMENT OF VASCULAR SURGERY OUTPATIENT VISIT DATE [...] his postop visit. He has been in alf since then and has been recovering from his acute on chronic congestive heart failure. His wound has largely been healing without any issues and the maxwell and sutures were removed at the nursing facility. He comes here with a lateral wound eschar. He denies any fevers, chills, or any drainage. He is on anticoagulation. 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 Patient on mycophenolate mofetil , cellcept and prednisone Mixed hyperlipidemia due to type 2 diabetes mellitus ([facility]) 11/29/2021 Osteomyelitis ([facility]) 11/29/2021 Paroxysmal atrial fibrillation ([facility]) Renal transplant, status post SA node dysfunction ([facility]) s/p pacemaker Type 2 diabetes mellitus with diabetic neuropathy, with long-term current use of insulin ([facility]) 02/24/2002 PAST SURGICAL HISTORY Procedure Laterality Date [...] by mouth daily with lunch. Magic Cup [place] with lunch aspirin, enteric coated (ASPIRIN, ENTERIC COATED) 81 mg EC tablet Take 1 tablet by mouth once daily. predniSONE (DELTASONE) 5 mg tablet TAKE 1 TABLET BY MOUTH EVERY DAY oxyCODONE IR (ROXICODONE) 5 mg immediate release tablet 1-2 tablets by ORAL/FEEDING TUBE route every 3 hours as needed. Food Supplement, Lactose-Free (ENSURE MAX (more content not included)... [facility]01-12-2023 History of Present illness Narrative* Hina Peterson MD - 02/26/2022 4:25 PM EST Images from the original note were not included. Heart , Vascular and Thoracic [place] DEPARTMENT OF VASCULAR SURGERY OUTPATIENT VISIT DATE [...] his postop visit. He has been in alf since then and has been recovering from his acute on chronic congestive heart failure. His wound has largely been healing without any issues and the maxwell and sutures were removed at [facility]. He comes here with a lateral wound eschar. He denies any fevers, chills, or any drainage. He is on anticoagulation. 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 Patient on mycophenolate mofetil ,cellcept and prednisone 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) 11/29/2021 Osteomyelitis ([facility]) 11/29/2021 Paroxysmal atrial fibrillation ([facility]) Renal transplant, status post SA node dysfunction ([facility]) s/p pacemaker Type 2 diabetes mellitus with diabetic neuropathy, with long-term current use of insulin ([facility]) 02/24/2002 PAST SURGICAL HISTORY Procedure Laterality Date [...] by mouth daily with lunch. Magic Cup [place] with lunch aspirin, enteric coated (ASPIRIN, ENTERIC [...] 2022 TIME: 4:26 PM documented in this encounterOhiohealth [facility] Center01-05-2023 Miscellaneous Notes* Telephone Encounter - [...] Home and cell number(Ask for Alex's nurse) [phone] Diagnosis 4 mo f/u wound check Best regardsYumiko documented in this encounterOhiohealth Grant Medical Center01-05-2023 Miscellaneous Notes* Telephone Encounter - Augusta Medrano RN - 02/19/2022 11:11 AM EST Alex Almonte's nursing facility, [facility], called regarding elevated tacrolimus level (23.9). Spoke with bedside nurse, mukul Enriquez. Level is from last week- unable to clearly determine if medications were held prior to lab work. Reviewed with nurse morning labs should occur prior to lab draws. Patient is scheduled for repeat labs tomorrow. Will assess new level. Augusta Medrano RN documented in this encounterOhiohealth Grant Medical Center01-04-2023 Miscellaneous Notes* Telephone Encounter - [...] advise. Mercedez Tavares MA documented in this encounterOhiohealth Grant Medical Center12-27-2022 Progress note Author Sadia Aguilar [facility] February 10, 2022 3:47pm Note Date/Time February 10, 2022 3:47pm [facility] ENTER [address] [place] [address] Wound Center Provider Note Signed Patient: Alex Almonte MR#: [id number] : 1945 Acct:[id number] Age/Sex: 76 / M Copies to: DO Sadia Whyte APRN~ HPI Date of Visit Date of Visit: Date of Service: 02/10/2022 Time of Service: 15:44 Narrative HPI: 12/30/21 Alex is a 76 year old male presenting to [facility] wound care for aninitial visit for eval and treatment of a sacral/coccyx area pressure ulcer. He resides at [facility]. There is an MOTIVATIONAL SPEAKER present for the visit. Medicalhoney gel will [...] from initial visit here Mode of Arrival/ Locker Operator: Facility vehicle Assistive Device Used Today: Wheelchair [...] Ulcer Pressure Ulcer/Injury Staging: Unstageable Bed Appearance: [place] and Yellow Percent of Wound Bed Granulated/Red: 90 Percent of Devitalized: 10 Length (cm): 2.5 Width (cm): 2.3 Depth (cm): 2.1 CM Sq: 5.750 Surrounding Tissue Appearance: [place], Hyperpigmented and Satellite lesions Surrounding Tissue Temp: [...] <Electronically signed by DAVID Aguilar> 02/10/22 [address] [facility] Work Phone: [phone] 617-783412-22-2022 NoteHNO ID: [id number] Author: Asia Pike MD Service: ? Author Type: Physician Type: Progress Notes Filed: 02/05/2022 9:38 AM Note Text: [facility] [place] Transplant Follow up Portions of this note [...] and snacks patient declined. Indra scale at [facility]: 166.2 lbs per patient. Bed sore on coccyx causing discomfort. Being changed regularly at SNF- reported to be smaller around but still as deep. Patient not very up to date with medications. Patient brought paperwork from [employer] with all medications being received. Patient unsure if they have been drawing labs regularly. Last Tac from 01/19: 12.9 and K 5.9. In need of current labs. Lab orders will be sent with patient and follows as below: Kidney and Pancreas Transplant Standing Lab Orders [address] [facility] [address] [place], [place] [address] February 05, 2022 Alex Almonte 1945 [id number] STANDARD TESTING: Diagnosis Codes: Z94.0 Kidney Transplant [...] AT YOUR LABORATORY FACILITY AND FAX TO [phone]. PLEASE CALL [phone]. Provider: Dr. Pike Current Outpatient Medications Medication [...] by mouth daily with lunch. Magic Cup [place] with lunch aspirin, enteric coated (ASPIRIN, ENTERIC COATED) 81 mg EC tablet Take 1 tablet by mouth once daily. atorvastatin (LIPITOR) 40 mg tablet 1 tablet by ORAL/FEEDING TUBE route daily at bedtime. (more content not included)...[facility]12-22-2022 History of Present illness Narrative* Asia Pike MD - 02/05/2022 8:20 AM EST Images from the original note were not included. [facility] [place] Transplant Follow up Portions of this note [...] and snacks patient declined. Indra scale at [facility]: 166.2 lbs per patient. Bed sore on coccyx causing discomfort. Being changed regularly at [facility]- reported to be smaller around but still as deep. Patient not very up to date with medications. Patient brought paperwork from [employer] with all medications being received. Patient unsure if they have been drawing labs regularly. Last Tac from 12/5: 12.9 and K 5.9. In need of current labs. Lab orders will be sent with patient and follows as below: Kidney and Pancreas Transplant Standing Lab Orders [address] [place], [place] [address] February 05, 2022 Alex Almonte 1945 [id number] STANDARD TESTING: Diagnosis Codes: Z94.0 Kidney Transplant [...] AT YOUR LABORATORY FACILITY AND FAX TO [phone]. PLEASE CALL [phone]. Provider: Dr. Pike Current Outpatient Medications Medication [...] by mouth daily with lunch. Magic Cup [place] with lunch aspirin, enteric coated (ASPIRIN, ENTERIC [...] All other system reviews negative. Augusta Medrano, table games floor supervisor: February 05, 2022 9:34 AM I have [...] complexity. Asia Pike MD documented in this encounterOhiohealth Grant Medical Center12-06-2022 Progress note Author Sadia Aguilar [facility] January 20, 2022 2:21pm Note Date/Time January 20, 2022 2 :21pm [facility] ENTER [address] [place] [address] Wound Center Provider Note Signed Patient: Alex Almonte MR#: [id number] : 1945 Acct:[id number] Age/Sex: 76 / M Copies to: DO Sadia Whyte APRN~ HPI Date of Visit Date of Visit: Date of Service: 01/20/2022 Time of Service: 14:17 Narrative HPI: 12/30/21 Alex is a 76 year old male presenting to [facility] wound care for aninitial visit for eval and treatment of a sacral/coccyx area pressure ulcer. He resides at [facility]. There is an MOTIVATIONAL SPEAKER present for the visit. Medicalhoney gel will [...] from initial visit here Mode of Arrival/ Locker Operator: Facility vehicle Assistive Device Used Today: Wheelchair [...] Ulcer Pressure Ulcer/Injury Staging: Unstageable Bed Appearance: [place] and Yellow Percent of Wound Bed Granulated/Red: 40 Percent of Devitalized: 60 Length (cm): 5.2 Width (cm): 3.4 Depth (cm): 1.8 CM Sq: 17.680 Surrounding Tissue Appearance: [place] and Hyperpigmented Surrounding Tissue Temp: Warm Drainage [...] <Electronically signed by DAVID Aguilar> 01/20/22 [address] [facility] Work Phone: 1(136) 149-674712-06-2022 Miscellaneous Notes* Telephone Encounter - Van Olivarez APRN.CODE CLERK - 01/20/2022 1:12 PM EST Labs noted from yesterday. Pt is currently residing at [facility], I spoke with the Nurse, the results has been addressed by Physician caring for pt. He had been placed on Chlor Con and this has been discontinued and hyperkalemia has been treated. Van Olivarez APRN.DIAMANTE documented in this encounterOhiohealth Grant Medical Center11-28-2022 Surgical operation note* Brief Op Note - Misbah Landis PA-C - 01/12/2022 10:41 AM EST BRIEF OPERATIVE / PROCEDURE NOTE LOG ID: [id number] SURGERY/PROCEDURE DATE: 01/12/2022 INCISION/PROCEDURE START TIME: 10:32 AM INCISION CLOSE/PROCEDURE END TIME: 10:35 AM SURGEON(S)/PROCEDURALIST(S) AND CHEESE PROCESSOR(S): Misbah Landis PA-C SURGERY/PROCEDURE(S): Removal tunneled vascular access catheter under local anesthesia ANESTHESIA: Procedural Sedation FINDINGS: Catheter removed intact ESTIMATED BLOOD LOSS: 0 ml SPECIMENS: None COMPLICATIONS: None PRE-OP/PRE-PROCEDURE DIAGNOSIS: Foot Ulcer POST-OP/POST-PROCEDURE DIAGNOSIS: Same as Preop SIGNATURE: Misbah Landis PA-C PATIENT NAME: Alex Almonte DATE: January 12, 2022 TIME: 10:42 AM documented in this encounterOhiohealth Grant Medical Center11-22-2022 Nurse Note* Laxmi Archibald RN - 01/06/2022 1:55 PM EST Pre-procedure instructions: Contacted patient's sister, Munira Brothers and nurse at [facility] ([phone]) andconfirmed appt. for Gerhard removal scheduled on 01/12/22, at [facility]. If instructions are not followed your [...] signed. Arrival at 9:30am to desk QB-1 ([facility]) and check in for your procedure. Hand Alterations Tailor/Transportation: How will you be arriving for your procedure? Ambulance service. To be arranged by [facility]. If you develop any of the following symptoms before your procedure, please call [phone]. Chills, joint pain, rash, sore throat, cough, loss of smell, reddened eyes, vomiting, abdominal pains, diarrhea, loss of taste, severe headache, weakness, bruising or bleeding, fever, muscle pain, shortness of breath Recovery expectations: You can expect to be in recovery for 30 minutes following the procedure. Written instructions provided to patient via BBspacet If you have any questions please call [phone] documented in this encounterOhiohealth Grant Medical Center11-15-2022 Progress note Author Sadia Aguilar [facility] December 30, 2021 1:49pm Note Date/Time December 30, 2021 1:49pm [facility] ENTER [address] [place] [address] Wound Center Provider Note Signed Patient: Alex Almonte MR#: [id number] : 1945 Acct:[id number] Age/Sex: 76 / M Copies to: DO Sadia Whyte APRN~ HPI Date of Visit Date of Visit: Date of Service: 12/30/2021 Time of Service: 13:44 Narrative HPI: 12/30/21 Alex is a 76 year old male presenting to [facility] wound care for aninitial visit for eval and treatment of a sacral/coccyx area pressure ulcer. He resides at [facility]. There is an MOTIVATIONAL SPEAKER present for the visit. Medicalhoney gel will [...] start?: 4 weeks ago Mode of Arrival/ Locker Operator: Facility vehicle Assistive Device Used Today: Wheelchair [...] 0.1 CM Sq: 38.500 Surrounding Tissue Appearance: [place] and Hyperpigmented Surrounding Tissue Temp: Warm Drainage [...] by DAVID Aguilar> 12/30/21 [address] [facility] Work Phone: 1(515) 386-418211-15-2022 History of Present illness Narrative* Paresh Fonseca [...] the rehab facility He is currently at [facility] in [facility] Seen on video together with [...] has local wound care following this at [facility] WBC 6.0, creatinine -- 0.8. [...] by mouth daily with lunch. Magic Cup [place] with lunch aspirin, enteric coated (ASPIRIN, ENTERIC [...] is a 76 year old male from [facility]. 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 History of PAD CAD status post CABG, diabetes, atrial fibrillatioN He originally presented [facility] for having altered mental status and right [...] 3. Status post right heel I&D at [facility] on 11/24/2021. 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 4. CKD - s/p gerhard placement 5. immunocompromised Status post right open above the ankle [id number]/17 - Enterobacter and MRSA from cultures Gram-positive [...] will need to coordinate with his SNF [phone] --our ID office will need to arrange for IR gerhard removal. Return to ID as needed 10 Minutes spent via virtual visit. SIGNATURE: Paresh Fonseca MD PATIENT NAME: Alex Almonte DATE: December 30, 2021 TIME: 9:52 AM documented in this encounterOhiohealth Grant Medical Center11-01-2022 Miscellaneous Notes* Telephone Encounter - Sumla Pardo - 12/16/2021 3:13 PM EDT Pt occupational therapy manager is requesting orders for Stomp ampushield to be taken off pressure relief because it is causing sores on the thigh. Thanks, Sulma Pardo Battery Parts Assembler documented in this encounterOhiohealth Grant Medical Center10-31-2022 Miscellaneous Notes* Telephone Encounter - Gwen Alfredo Adm Asst I - 12/15/2021 4:11 PM EDT Rupa LYLES from [facility] [phone] called to report IV Vancomycin was started until today. Patient missed 3 days, should patient makeup missed doses? Please advise. Gwen Alfredo Adm Asst I documented in this encounterOhiohealth Grant Medical Center10-21-2022 Instructions* Patient Instructions* Paresh Fonseca [...] serious illness Are taking any medications (prescription, spxc-yrj-pgoxhjo, vitamins, or herbal products) How will I receive EVUSHELD? EVUSHELD consists of two investigational medicines, tixagevimab and cilgavimab. You will receive 1 dose of EVUSHELD, consisting of 2 separate injections (tixagevimab and cilgavimab). EVUSHELD will be given to you by your healthcare provider as 2 intramuscular injections, given one after the other. Viruses can change control specialist time (mutate) and develop into a [...] by certain SARS-CoV-2 variants: Viruses can change control specialist time (mutate) and develop into a [...] treatment or prevention of COVID-19 go to https://www.fda.gov/qjsbwjrhy-jxilizsgsnhv-jol- response/yco-xxjaa-jdxusvbolb-pyk-cengha-jgttplfeo/gzdgssvhl-din-vepnfyczbjmim for more information. It is your choice [...] not go away. Report side effects to [employer] at www.[place].gov/medPrognosis Health Information Systems or call 2-948-VBE-6509 or call beSUCCESS . Additional Information If you have questions, visit the website or call the telephone number provided below. Website Telephone number http://Double Fusion How can I learn more about COVID-19? Ask your healthcare provider. Visit https://www.cdc.gov/COVID19 Contact your local or state public health department. What is an Emergency Use Authorization? The [place] FDA has made EVUSHELD (tixagevimab co-packaged with cilgavimab) available under an emergency access mechanism called an Emergency Use Authorization EUA. The EUA is supported by a [place] of Health and Human Service (HHS) declaration [...] monohydrate, polysorbate 80, sucrose, water. Distributed by: [employer] [place], [place] Manufactured for: [employer] [place] [employer] 2021. All rightsreserved. documented in this encounterOhiohealth Grant Medical Center10-21-2022 Miscellaneous Notes* Telephone Encounter - Paresh Fonseca MD - 12/05/2021 3:05 PM EDT Evusheld (tixagevimab/cilgavimab) Eligibility and Patient Discussion The patient agrees to receive Evusheld (tixagevimab 300 mg and cilgavimab 300 mg) at [place]. The patient verbalized understanding of repeating a COVID test 72 hours prior to the injections. called up patient in response to her Clipmarkst message today she tested covid negative on a rapid test on Wednesday this week Discussed evushed fact sheet and she agrees to proceed she will retest again today to be scheduled for Friday 12/[address] [facility] Paresh Fonseca MD documented in this encounterOhiohealth Grant Medical Center10-03-2022 Instructions* Patient Instructions* No Reeder DO - 11/17/2021 4:26 PM EDT -- continue coumadin -- will get vascular ultrasound for vein and artery of your right leg -- will have you see my interventional cardiology partner regarding your peripheral artery disease and if your artery disease is impairing your wound healing for the leg ulcer documented in this encounterOhiohealth Grant Medical Center10-03-2022 History of Present illness Narrative* No Reeder DO - 11/17/2021 3:53 PM EDT Images from the original note were not included. Heart and Vascular [place] [facility] Verdugo Department of Cardiovascular Medicine SECTION [...] DVT scan. Leg elevation. No Reeder DO, [facility] Vascular Medicine documented in this encounterOhiohealth Grant Medical Center08-16-2022 History of Past illness Narrative* Problem Noted Date Resolved Date Altered tissue perfusion documented as of this encounter (statuses as of 09/30/2021) [address]16-2022 History of Past illness Narrative* Problem Noted Date Resolved Date Altered tissue perfusion documented as of this encounter (statuses as of 10/09/2021) [address]16-2022 History of Past illness Narrative* Problem Noted Date Resolved Date Altered tissue perfusion documented as of this encounter (statuses as of 11/18/2021) [address]16-2022 History of Past illness Narrative* Problem Noted Date Resolved Date Altered tissue perfusion documented as of this encounter (statuses as of 12/01/2021) [address]16-2022 History of Past illness Narrative* Problem Noted Date Resolved Date Altered tissue perfusion documented as of this encounter (statuses as of 12/05/2021) [address]16-2022 History of Past illness Narrative* Problem Noted Date Resolved Date Altered tissue perfusion 16/2 022 documented as of this encounter (statuses as of 12/08/2021) [address]16-2022 History of Past illness Narrative* Problem Noted Date Resolved Date Altered tissue perfusion 16/2 022 documented as of this encounter (statuses as of 12/08/2021) [address]16-2022 History of Past illness Narrative* Problem Noted Date Resolved Date Altered tissue perfusion 16/2 022 documented as of this encounter (statuses as of 12/12/2021) [address]16-2022 History of Past illness Narrative* Problem Noted Date Resolved Date Altered tissue perfusion 16/2 022 documented as of this encounter (statuses as of 12/15/2021) [address]16-2022 History of Past illness Narrative* Problem Noted Date Resolved Date Altered tissue perfusion 16/2 022 documented as of this encounter (statuses as of 12/16/2021) [address]16-2022 History of Past illness Narrative* Problem Noted Date Resolved Date Altered tissue perfusion 16/2 022 documented as of this encounter (statuses as of 12/31/2021) [address]16-2022 History of Past illness Narrative* Problem Noted Date Resolved Date Altered tissue perfusion 16/2 022 documented as of this encounter (statuses as of 01/13/2022) [address]16-2022 History of Past illness Narrative* Problem Noted Date Resolved Date Altered tissue perfusion 16/2 022 documented as of this encounter (statuses as of 01/20/2022) [address]16-2022 History of Past illness Narrative* Problem Noted Date Resolved Date Altered tissue perfusion 16/2 022 documented as of this encounter (statuses as of 02/06/2022) [address]16-2022 History of Past illness Narrative* Problem Noted Date Resolved Date Altered tissue perfusion /16/2 022 documented as of this encounter (statuses as of 02/20/2022) [address]16-2022 History of Past illness Narrative* Problem Noted Date Resolved Date Altered tissue perfusion /16/2 022 documented as of this encounter (statuses as of 02/26/2022) [address]16-2022 History of Past illness Narrative* Problem Noted Date Resolved Date Altered tissue perfusion documented as of this encounter (statuses as of 02/27/2022) [address]16-2022 History of Past illness Narrative* Problem Noted Date Resolved Date Altered tissue perfusion documented as of this encounter (statuses as of 03/21/2022) [address]16-2022 History of Past illness Narrative* Problem Noted Date Resolved Date Altered tissue perfusion documented as of this encounter (statuses as of 03/30/2022) [address]16-2022 History of Past illness Narrative* Problem Noted Date Resolved Date Altered tissue perfusion documented as of this encounter (statuses as of 04/06/2022) [address]16-2022 History of Past illness Narrative* Problem Noted Date Resolved Date Altered tissue perfusion documented as of this encounter (statuses as of 05/13/2022) [address]16-2022 History of Past illness Narrative* Problem Noted Date Diagnosed Date Resolved Date Altered tissue perfusion documented as of this encounter (statuses as of 2022) [address]16-2022 History of Past illness Narrative* Problem Noted Date Diagnosed Date Resolved Date Altered tissue perfusion documented as of this encounter (statuses as of 10/29/2022) [facility] Miscellaneous Notes* Telephone Encounter - [...] to pharmacy. Katina Duque documented in this encounterOhiohealth Grant Medical Center05-31-2022 Miscellaneous Notes* Telephone Encounter - [...] advise. Rosibel Yehleela Adm documented in this encounterOhiohealth Grant Medical Center04-21-2022 Miscellaneous Notes* Telephone Encounter - Van Olivarez APRN.CNP - 06/05/2021 4:46 PM EDT Spoke with pt regarding latest results, scr. at baseline. TAC level 8.6 prev two levels in 5 range.He believes latest level would be 12hr trough. No changes for now, if next level >7, can consider if reduction appropriate. He understands. Van Olivarez APRN.CNP documented in this encounterOhio[facility]* Diagnosis Screening for genitourinary condition Screening for other and unspecified genitourinary condition documented in this encounter [facility]* Diagnosis Acute deep vein thrombosis (DVT) of proximal end of right lower extremity (HCC)- Primary PAD (peripheral artery disease) ([facility]) Peripheral vascular disease, unspecified Nonhealing ulcer of heel (HCC) Anticoagulation management encounter Encounter for therapeutic drug monitoring documented in this encounter [facility] note* Diagnosis Encounter for prophylactic measures, unspecified- Primary documented in this encounter [facility]* Diagnosis Kidney replaced by transplant- Primary documented in this encounter [facility]* Diagnosis MRSA bacteremia- Primary Bacteremia Diabetic foot ulcer with osteomyelitis (HCC) Type II or unspecified type diabetes mellitus with other specified manifestations, not stated as uncontrolled ILIANA (acute kidney injury) ([facility]LY [facility]) Acute kidney failure, unspecified documented in this encounter [facility]* Diagnosis Kidney replaced by transplant- Primary 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 current use of immunosuppressive drug documented in this encounter [facility] note* Diagnosis Hx of BKA, right ([facility])- Primary PAD (peripheral artery disease) ([facility]) Peripheral vascular disease, unspecified Mixed hyperlipidemia due to type 2 diabetes mellitus ([facility]) Type II or unspecified type diabetes mellitus with renal manifestations, uncontrolled(250.42) Type II or unspecified type diabetes mellitus with renal manifestations, uncontrolled Type 2 diabetes mellitus with diabetic neuropathy, with long-term current use of insulin (HCC) Type 2 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, with long-term current use of insulin ([facility]) Paroxysmal atrial fibrillation ([facility]) Atrial fibrillation documented in this encounter [facility] note* Diagnosis Screening for genitourinary condition Screening for other and unspecified genitourinary condition documented in this encounter [facility] note* Diagnosis Onset Date Resolution Status At high risk for skin breakdown chronic Diabetes chronic Fecal incontinence chronic Limited mobility chronic Poor appetite chronic Pressure ulcer of sacral region, unstageable chronic Candidiasis resolved [facility] Work Phone: Evaluation noteNo [employer] Other Evaluation note* Diagnosis Kidney replaced by transplant- Primary documented in this encounter [facility] note* Diagnosis Type 1 diabetes mellitus [...] COLONOSCOPY 1995,2001, 2014 Hospitalization History see above [email or web address] Other Progress note Author Sadia Aguilar [facility] July 20, 2022 1:48pm Note Date/Time July 20, 2022 1:48p m [facility] [address] [place] [address] Wound Center Provider Note Signed Patient: Alex Almonte MR#: [id number] : 1945 Acct:[id number] Age/Sex: 76 / M Copies to: DO Sadia Whyte, DAVID~ HPI Date of Visit Date of Visit: Date of Service: 07/20/2022 Time of Service: 13:46 Narrative HPI: 12/30/21 Alex is a 76 year old male presenting to [facility] wound care for aninitial visit for eval and treatment of a sacral/coccyx area pressure ulcer. He resides at [facility]. There is an MOTIVATIONAL SPEAKER present for the visit. Medicalhoney gel will [...] from initial visit here Mode of Arrival/ Locker Operator: Facility vehicle Assistive Device Used Today: Wheelchair [...] <Electronically signed by DAVID Aguilar> 07/20/22 134[address] [facility] Work Phone: Reason for referral (narrative)* Outpatient Procedure (Routine) - Authorized Specialty Diagnoses / Procedures Referred By Felicia carreno Ref[facility] Diagnoses PAD (peripheral artery disease) (HCC) Nonhealing ulcer of heel (HCC) Procedures US LEG ARTERIAL PERIPH UNL VAS LAB DUP-SCAN LXTR ART/ARTL BPGS UNI/LMTD STUDY No Reeder DO [address] [place] [id number] [facility] [address] [address] Referral ID Status Reason Start Date Expiration Date Visits Requested Visits Authorized [id number] Authorized Auto-Generat ed Referral 11/17/2021 11/17/2022 1 1 * Outpatient Procedure (Routine) - Authorized Specialty Diagnoses / Procedures Referred By Contac t Referred To Contact [facility] [place] Diagnoses Acute deep vein thrombosis (DVT) of proximal end of right lower extremity (HCC) Procedures US LEG VEIN DVT UNL VAS LAB DUP-SCAN XTR VEINS UNILATERAL/LIMITED STUDY No Reeder DO [address] [place] [address] [place] [address] Referral ID Status Reason Start Date Expiration Date Visits Requested Visits Authorized [id number] Authorized Auto-Generat ed Referral 11/17/2021 11/17/2022 1 1 * Consult, Test, Treat (Routine) - Authorized Specialty Diagnoses / Procedures Referred By Contac t Referred To Contact Cardiology Diagnoses PAD (peripheral artery disease) ([facility]) Nonhealing ulcer of heel ([facility]) Procedures CONSULT TO CARDIOLOGY OFFICE/OUTPATIENT [facility] 60-[place] [address] [place] [address] Referral ID Status Reason Start Date Expiration Date Visits Requested Visits Authorized [id number] Authorized PCP Requested Referral 11/17/2021 11/17/2022 1 1 [facility] Summary Purpose Family History No Family History Records Found Relationship Condition Age at Onset Recorded Date/T kartik father Aneurysm Unknown father Parkinson's disease Unknown Advance Directives No Advanced Directives Records FoundDocuments on File Type Date Recorded Patient Public Health Training Assistant Expl anation Advance Directive(s) Latest Code [...] M ajority of Adult Siblings (sales representative graphic art) DNR-CCA 09/26/2021 11:56 AM 10/01/2021 2:18 PM [...] Relationship: Majority of Adult Siblings (sales representative graphic art) Code Status History Code Status Date Activated [...] Reason for Visit Chief Complaint Open Wound ([facility]) Reason for Visit At high [...] and content) DATE CREATED AUTHOR 02/20/2021 [employer] [facility] DATE CREATED AUTHOR AUTHOR'S ORGANIZ ATION 07/25/2022 [facility] DATE CREATED AUTHOR AUTHOR'S ORGANIZ ATION 08/16/2022 [facility] DATE CREATED AUTHOR AUTHOR'S ORGANIZ ATION 01/14/2023 [facility] DATE CREATED AUTHOR AUTHOR'S ORGANIZ ATION 05/25/2023 [facility] DATE CREATED AUTHOR AUTHOR'S ORGANIZ ATION 06/19/2023 [facility] [employer] Comments (unrecognize d section and content) In the event this informatio n is protected by the Federal Confidentiality of Alcohol and Drug Abuse Patient Records regulations: The Federal rules restrict any use of the information to criminally investigate or prosecute any alcohol or drug abuse patient.[facility] the event this information is protected by the Federal Confidentiality of Alcohol and Drug Abuse Patient Records regulations: The Federal rules restrict any use of the information to criminally investigate or prosecute any alcohol or drug abuse patient.[facility] Center[facility] the event this information is protected by the Federal Confidentiality of Alcohol and Drug Abuse Patient Records regulations: The Federal rules restrict any use of the information to criminally investigate or prosecute any alcohol or drug abuse patient.[facility] Center[facility] the event this information is protected by the Federal Confidentiality of Alcohol and Drug Abuse Patient Records regulations: The Federal rules restrict any use of the information to criminally investigate or prosecute any alcohol or drug abuse patient.[facility] Center[facility] the event this information is protected by the Federal Confidentiality of Alcohol and Drug Abuse Patient Records regulations: The Federal rules restrict any use of the information to criminally investigate or prosecute any alcohol or drug abuse patient.[facility] Center[facility] the event this information is protected by the Federal Confidentiality of Alcohol and Drug Abuse Patient Records regulations: The Federal rules restrict any use of the information to criminally investigate or prosecute any alcohol or drug abuse patient.[facility] Center[facility] the event this information is protected by the Federal Confidentiality of Alcohol and Drug Abuse Patient Records regulations: The Federal rules restrict any use of the information to criminally investigate or prosecute any alcohol or drug abuse patient.[facility] Center[facility] the event this information is protected by the Federal Confidentiality of Alcohol and Drug Abuse Patient Records regulations: The Federal rules restrict any use of the information to criminally investigate or prosecute any alcohol or drug abuse patient.[facility] Center[facility] the event this information is protected by the Federal Confidentiality of Alcohol and Drug Abuse Patient Records regulations: The Federal rules restrict any use of the information to criminally investigate or prosecute any alcohol or drug abuse patient.[facility] Center[facility] the event this information is protected by the Federal Confidentiality of Alcohol and Drug Abuse Patient Records regulations: The Federal rules restrict any use of the information to criminally investigate or prosecute any alcohol or drug abuse patient.[facility] Center[facility] the event this information is protected by the Federal Confidentiality of Alcohol and Drug Abuse Patient Records regulations: The Federal rules restrict any use of the information to criminally investigate or prosecute any alcohol or drug abuse patient.[facility] Center[facility] the event this information is protected by the Federal Confidentiality of Alcohol and Drug Abuse Patient Records regulations: The Federal rules restrict any use of the information to criminally investigate or prosecute any alcohol or drug abuse patient.[facility] Center[facility] the event this information is protected by the Federal Confidentiality of Alcohol and Drug Abuse Patient Records regulations: The Federal rules restrict any use of the information to criminally investigate or prosecute any alcohol or drug abuse patient.[facility] Center[facility] the event this information is protected by the Federal Confidentiality of Alcohol and Drug Abuse Patient Records regulations: The Federal rules restrict any use of the information to criminally investigate or prosecute any alcohol or drug abuse patient.[facility] CenterIn the event this information is protected by the Federal Confidentiality of Alcohol and Drug Abuse Patient Records regulations: The Federal rules restrict any use of the information to criminally investigate or prosecute any alcohol or drug abuse patient.[facility] CenterIn the event this information is protected by the Federal Confidentiality of Alcohol and Drug Abuse Patient Records regulations: The Federal rules restrict any use of the information to criminally investigate or prosecute any alcohol or drug abuse patient.[facility] CenterIn the event this information is protected by the Federal Confidentiality of Alcohol and Drug Abuse Patient Records regulations: The Federal rules restrict any use of the information to criminally investigate or prosecute any alcohol or drug abuse patient.[facility] CenterIn the event this information is protected by the Federal Confidentiality of Alcohol and Drug Abuse Patient Records regulations: The Federal rules restrict any use of the information to criminally investigate or prosecute any alcohol or drug abuse patient.[facility] CenterIn the event this information is protected by the Federal Confidentiality of Alcohol and Drug Abuse Patient Records regulations: The Federal rules restrict any use of the information to criminally investigate or prosecute any alcohol or drug abuse patient.[facility] CenterIn the event this information is protected by the Federal Confidentiality of Alcohol and Drug Abuse Patient Records regulations: The Federal rules restrict any use of the information to criminally investigate or prosecute any alcohol or drug abuse patient.[facility] CenterIn the event this information is protected by the Federal Confidentiality of Alcohol and Drug Abuse Patient Records regulations: The Federal rules restrict any use of the information to criminally investigate or prosecute any alcohol or drug abuse patient.[facility] CenterIn the event this information is protected by the Federal Confidentiality of Alcohol and Drug Abuse Patient Records regulations: The Federal rules restrict any use of the information to criminally investigate or prosecute any alcohol or drug abuse patient.[facility] CenterIn the event this information is protected by the Federal Confidentiality of Alcohol and Drug Abuse Patient Records regulations: The Federal rules restrict any use of the information to criminally investigate or prosecute any alcohol or drug abuse patient.[facility] CenterIn the event this information is protected by the Federal Confidentiality of Alcohol and Drug Abuse Patient Records regulations: The Federal rules restrict any use of the information to criminally investigate or prosecute any alcohol or drug abuse patient.[facility] CenterIn the event this information is protected by the Federal Confidentiality of Alcohol and Drug Abuse Patient Records regulations: The Federal rules restrict any use of the information to criminally investigate or prosecute any alcohol or drug abuse patient.[facility] CenterIn the event this information is protected by the Federal Confidentiality of Alcohol and Drug Abuse Patient Records regulations: The Federal rules restrict any use of the information to criminally investigate or prosecute any alcohol or drug abuse patient.[facility] Reason for Visit (unrecogniz ed [...] Teams (unrecognized sec tion and content) Manager Ccu Relationship Specialty Start Date End Date Devon Moreira, DO [address] [place] [address] PCP - General 05/27/00 Manager Ccu Relationship Specialty Start Date End Date Devon Moreira, DO [address] [facility] [place] [address] PCP - General 05/27/00 Manager Ccu Relationship Specialty Start Date End Date Devon Moreira, DO [address] [facility] [place] [address] PCP - General 05/27/00 Manager Ccu Relationship Specialty Start Date End Date Devon Moreira Raquel, DO [address] [facility] [place] [address] PCP - General 05/27/00 Manager Ccu Relationship Specialty Start Date End Date Devon Moreira, DO [address] [place] [address] PCP - General 05/27/00 Manager Ccu Relationship Specialty Start Date End Date Devon Moreira, DO [address] [place] [address] PCP - General 05/27/00 Manager Ccu Relationship Specialty Start Date End Date Devon Moreira, DO [address] [place] [address] PCP - General 05/27/00 Manager Ccu Relationship Specialty Start Date End Date Devon Moreira, DO [address] [place] [address] PCP - General 05/27/00 Manager Ccu Relationship Specialty Start Date End Date Devon Moreira, DO [address] [place] [address] PCP - General 05/27/00 Manager Ccu Relationship Specialty Start Date End Date Devon Moreira, DO [address] [place] [address] PCP - General 05/27/00 Manager Ccu Relationship Specialty Start Date End Date Devon Moreira, DO [address] [place] [address] PCP - General 05/27/00 Manager Ccu Relationship Specialty Start Date End Date Devon Moreira, DO [address] [place] [address] PCP - General 05/27/00 Manager Ccu Relationship Specialty Start Date End Date Devon Moreira, DO [address] [place] [address] PCP - General 05/27/00 Manager Ccu Relationship Specialty Start Date End Date Devon Moreira, DO [address] [facility] [place] [address] PCP - General 05/27/00 Manager Ccu Relationship Specialty Start Date End Date Devon Moreira, DO [address] [facility] [place] [address] PCP - General 05/27/00 Manager Ccu Relationship Specialty Start Date End Date Devon Moreira, DO [address] [facility] [place] [address] PCP - General 05/27/00 Manager Ccu Relationship Specialty Start Date End Date Devon Moreira, DO [address] [facility] [place] [address] PCP - General 05/27/00 Manager Ccu Relationship Specialty Start Date End Date Devon Moreira, DO [address] [facility] [place] [address] PCP - General 05/27/00 Manager Ccu Relationship Specialty Start Date End Date Devon Moreira, DO [address] [facility] [place] [address] PCP - General 05/27/00 Team Status: Active Member Role Status Dates Devon Moreira DO Primary Care Provider Active Team Status: Inactive Member Role Status Dates eDvon Moreira DO Primary Care Provider Active Sadia Aguilar APRN Attending Provider Active Manager Ccu Relationship Specialty Start Date End Date Devon Moreira, DO [address] [facility] [place] [address] PCP - General 05/27/00 Manager Ccu Relationship Specialty Start Date End Date Devon Moreira, DO [address] [facility] [place] [address] PCP - General 05/27/00 Manager Ccu Relationship Specialty Start Date End Date Ni Cabrera DO [address] [place] [address] PCP - ACO Reach 07/09/22 Devon Moreira MD [address] [facility] [place] [id number] PCP - General Internal Medicine 07/14/22 PRN Active and Recently Administ ered Medications (unrecognized section and content) Medication Order 01/10/2022 01/11/2022 01/12/2022 lidocaine (PF) 10 mg/mL (1 %) injection (XYLOCAINE) SUBCUTANEOUS, X (OR/PROCEDURE) PRN, Starting on 01/12/22 at 1032, Until Tu01/13/22 at 0303, Intraprocedure 1032 (Given - Provid er: Vani Hdz APRN.CODE CLERK) Goals (unrecognized section and content) Goals may [...] BE BASED ON THE PRIMARY CLINICAL RECORDS. [email or web address] provides no warranty or guarantee of the accuracy or completeness of information in this document.
[2023-08-18 07:40] LABS: Basophils Absolute Auto 0.1 10^3/uL (0.0-0.1); Basophils Percent Auto 0.8 % (0.2-2.0); Eosinophils Absolute Auto 0.3 10^3/uL (0.0-0.7); Hematocrit 25.6 % (42.0-54.0); Hemoglobin 7.7 g/dL (14.0-18.0); Immature Granulocytes Abs Auto 0.02 10^3/uL (0.00-0.03); Immature Granulocytes Pct Auto 0.3 % (0.0-0.5); Lymphocytes Absolute Auto 2.1 10^3/uL (1.2-3.8); Lymphocytes Percent Auto 32.6 % (20.5-60.0); Mean Corpuscular HGB Conc 30.1 g/dL (29.9-35.2); Mean Corpuscular Hemoglobin 23.9 pg (25.9-34.0); Mean Corpuscular Volume 79.5 fL (80.0-94.0); Mean Platelet Volume 10.6 fL (9.5-13.5); Monocytes Absolute Auto 0.7 10^3/uL (0.3-0.8); Monocytes Percent Auto 10.6 % (1.7-12.0); Neutrophils Absolute Auto 3.4 10^3/uL (1.4-6.5); Neutrophils Percent Auto 51.7 % (43.0-75.0); Platelet Count 242 10^3/uL (150-450); Red Blood Count 3.22 10^6/uL (4.70-6.10); Red Cell Distribution Width 17.6 % (11.0-15.0); White Blood Count 6.5 10^3/uL (4.0-11.0)
[2023-08-18 07:48] LABS: INR 2.14
[2023-08-18 08:41] LABS: Alanine Aminotransferase 15 U/L (16-63); Albumin Globulin Ratio 0.9; Albumin Level 2.6 g/dL (3.4-5.0); Alkaline Phosphatase 81 U/L (46-116); Anion Gap 9.3; Aspartate Amino Transferase 15 U/L (15-37); BUN Creatinine Ratio 26.6; Bilirubin Total 0.8 mg/dL (0.2-1.0); Calcium 8.1 mg/dL (8.5-10.1); Carbon Dioxide 28.8 mmol/L (21.0-32.0); Chloride 105 mmol/L (98-107); Estimated GFR (African America 58 (>=60); Estimated GFR (Non-African Ame 48 (>=60); Glucose 205 mg/dL (74-106); Potassium 4.1 mmol/L (3.5-5.1); Sodium 139 mmol/L (136-145); Total Protein 5.6 g/dL (6.4-8.2)
[2023-08-21 15:07] LABS: Tacrolimus (FK506), Blood 3.9 ng/mL (2.0-20.0)
== END 2023-08-18 00:43 | disposition home or self-care (01) ==
LOC: LAB 00:42
PROVIDERS: PCP Internal Medicine; Visit Provider Internal Medicine
DX: N18.9 Chronic kidney disease, unspecified (principal)
CPT/HCPCS: 36415; 80053; 80197; 85025; 85610

== ENCOUNTER 2023-08-25 07:04 | Outpatient (REF) | payer MEDICARE, OTHER, SELFPAY ==
[2023-08-25 09:35] LABS: Basophils Absolute Auto 0.1 10^3/uL (0.0-0.1); Basophils Percent Auto 0.7 % (0.2-2.0); Eosinophils Absolute Auto 0.3 10^3/uL (0.0-0.7); Hematocrit 25.9 % (42.0-54.0); Immature Granulocytes Abs Auto 0.02 10^3/uL (0.00-0.03); Immature Granulocytes Pct Auto 0.3 % (0.0-0.5); Lymphocytes Absolute Auto 2.3 10^3/uL (1.2-3.8); Lymphocytes Percent Auto 34.4 % (20.5-60.0); Mean Corpuscular HGB Conc 30.9 g/dL (29.9-35.2); Mean Corpuscular Volume 77.5 fL (80.0-94.0); Monocytes Absolute Auto 0.8 10^3/uL (0.3-0.8); Monocytes Percent Auto 11.5 % (1.7-12.0); Neutrophils Absolute Auto 3.3 10^3/uL (1.4-6.5); Neutrophils Percent Auto 49.1 % (43.0-75.0); Platelet Count 271 10^3/uL (150-450); Red Blood Count 3.34 10^6/uL (4.70-6.10); Red Cell Distribution Width 17.7 % (11.0-15.0); White Blood Count 6.7 10^3/uL (4.0-11.0)
[2023-08-25 10:09] LABS: INR 2.42; Prothrombin Time 23.5 sec (9.0-11.6)
[2023-08-25 10:30] LABS: Alanine Aminotransferase 16 U/L (16-63); Albumin Globulin Ratio 0.9; Albumin Level 2.8 g/dL (3.4-5.0); Alkaline Phosphatase 77 U/L (46-116); Anion Gap 11.9; Aspartate Amino Transferase 14 U/L (15-37); BUN Creatinine Ratio 28.8; Bilirubin Total 0.7 mg/dL (0.2-1.0); Calcium 8.2 mg/dL (8.5-10.1); Carbon Dioxide 26.8 mmol/L (21.0-32.0); Chloride 104 mmol/L (98-107); Estimated GFR (African America 60 (>=60); Estimated GFR (Non-African Ame 49 (>=60); Glucose 236 mg/dL (74-106); Potassium 3.7 mmol/L (3.5-5.1); Sodium 139 mmol/L (136-145); Total Protein 5.8 g/dL (6.4-8.2)
[2023-08-28 08:17] LABS: Tacrolimus (FK506), Blood 6.9 ng/mL (2.0-20.0)
== END 2023-08-25 07:05 | disposition home or self-care (01) ==
LOC: LAB 07:04
PROVIDERS: PCP Internal Medicine; Visit Provider Internal Medicine
DX: N28.9 Disorder of kidney and ureter, unspecified (principal)
CPT/HCPCS: 36415; 80053; 80197; 85025; 85610

== ENCOUNTER 2023-09-01 04:07 | Outpatient (REF) | payer MEDICARE, OTHER, SELFPAY ==
--- OUTSIDE RECORDS SUMMARY | 2023-09-01 04:11 | XMS_ITS | CCD ---
Author Organization [facility] Inform ion Partnership [facility] Care Team Providers Care Special Procedures Tech Name Role Phone PROVIDER, UNKNOWN Attending Unavailable [...] DR OSORIO Primary Care Unavailable MISC, DR RYEDR Admitting Unavailable MISC, DR RYDER Consulting Unavailable [...] Unavailable Lillie, DO Osorio Primary Care Provider [phone] DAVID Aguilar Attending Provider Sadia Aguilar Attending [...] BROMIDE] Drug Allergy 2 GI Upset [facility] Work Phone: (1 source) Pyridostigmine [...] Indications: Type 1 diabetes mellitus with nephropathy ([facility]) 3 units breakfast, 5 units [...] 10 units and notify provider K Phos Rush-Sod Phos Di & Rush 155-852-130 MG (6 sources) take 155-852 tablets by mouth twice daily K Phos Rush-Sod Phos Di & Rush 155-852-130 MG 1 tablet Orally twice daily Active take 155-852 tablets by mouth four times daily take 155-852 tablets by mouth four times daily K Phos Rush-Sod Phos Di & Rush 155-852-130 MG 1 tablet Orally Four times [...] needed. docusate sodium 50 mg / sennosides, fpc 8.6 mg oral tablet (20 sources) Start: [...] by mouth daily with lunch. Magic Cup [place] with lunch 7110 mL 0 12/11/2021 Active Comment on above: Take 237 mL by mouth daily with lunch. 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 DELIVERY DRIVER CURRNT USE ANTICOAGULANTS] Onset: 3 Episodic Other [...] Episodic Other aftercare (2 sources) Other intermediate manager (current) drug therapy; Translations: [OTH GROUP HOME CURRENT DRUG THERAPY] Onset: 02-05-2022 Episodic Other aftercare (4 sources) Encounter for orthopedic aftercare following surgical amputation; Translations: [ENC ORTHOPED AFTERCARE FLW SURG AMP] Onset: 02-05-2022 Episodic Other aftercare (4 sources) 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 (current) use of antibiotics; Translations: [COURIER DELIVERY DRIVER CURRENT USE ANTIBIOTICS] Onset: 12-20-2021 Episodic Other aftercare (1 source) halfway (current) use of aspirin; Translations: [COURIER DELIVERY DRIVER CURRENT USE OF ASPIRIN] Onset: 01-19-2022 Episodic [...] Range Facility Office Visiton 05-19-2023 Follow-up visit [id number] Alex Almonte 1945 M Date Provider Department Center 05/19/2023 CAITY PALACIOS CARD [facility] Family History Problem Relation Age of Onset Cancer Mother Aneurysm Father Cancer Father Parkinsonism Father Family Status - Relation Status Age at Mother Father Level of Service:24948 [place] OFFICE/OUTPATIENT ESTABLISHED LOW MDM 20 MIN Reason for Visit and Comments: Follow-up [790079] - 6 month follow up Normal [facility] HbA1c (Bld) [Mass fraction]o n 03-18-2023 Interpretation and review of laboratory results Normal Pending sale to [facility] POCT glycosylated hemoglobin (Hb A1C) docked deviceon 03-18-2023 HbA1c (Bld) [Mass fraction] 7.8 % [facility] Sonya 12-25-2022 CNPN Telephone (TXCTGL) ALEX ALMONTE ([id number]) 1945 M Date Time Provider Department 12/25/22 KIDNEY TXP COORDINATORS TXCTGL During your visit today, we recorded the following information about you: Duane Ryan 12/25/2022 10:41 AM Signed Labs 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 Administrative Per Diem Physical Therapist Assistant Allergies As of Date: 12/25/2022 Noted Allergy [...] by mouth daily with lunch. 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 [[id number]] 07/30/2006 VITAMIN D DEFICIENCY NOS [E55.9] 09/07/2008 MIXED HYPERLIPIDEMIA [E78.2] 09/07/2008 SUMMARY 01/04/2015 ILIANA (acute kidney injury) (HCC) [N17.9] 01/04/2015 Diabetes mellitus (HCC) [E11.9] 01/04/2015 Cellulitis [L03.90] 01/04/2015 Diarrhea [R19.7] 01/04/2015 VTE (venous thromboembolism) [I82.90] 09/24/2021 CAD (coronary artery disease) [I25.10] 2016 Paroxysmal atrial fibrillation (HCC) [I48.0] HTN (hypertension) [I10] SA node dysfunction ([facility]) [I49.5] Altered tissue perfusion [R09.89] 09/30/2021 PAD (peripheral artery disease) (HCC) [I73.9] 09/26/2021 Osteomyelitis (HCC) [M86.9] 11/29/2021 Class 1 obesity due to excess calories with ser*11/29/2021 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 [place] with lunch aspirin, enteric coated (ASPIRIN, ENTERIC [...] in am? thanks! RF Pts RN at [facility] reports pts sister picks up [...] Apply 0. (more content not included)... Normal [facility] Office Visiton 09-09-2022 Follow-up visit [id number] Alex Almonte Kate 1945 M Date Provider Department Center 09/09/2022 1596-SARTHAK PARNELL CARD [facility] Family History Problem Relation Age of Onset Cancer Mother Aneurysm Father Cancer Father Parkinsonism Father Family Status - Relation Status Age at Mother Father Level of Service:72383 MA OFFICE/OUTPATIENT ESTABLISHED MOD MDM 30-39 MIN Normal [facility] Glucose Poct Glucometerson 0 07-20-2022 Commemt1 Glu2: Cleaned Meter Normal [facility] Comment on above: Result Comment: PERF ORMED BY: [facility] [address] [place] [address] PATHOLOGIST WEB DESIGN INSTRUCTOR JOSE F ELLIOTT M.D. Performed By: #### G MADY #### Point of Care testing , Glucose [Mass/Vol] 176 mg/dL Normal [facility] Comment on above: Result Comment: [facility] Glucose Reference Range is dependent on time and content of last meal. Glucose of more than 200 mg/dL in a nonstressed, ambulatory subject supports the diagnosis of Diabetes Mellitus. Performed By: #### G LULS #### Point of Care testing , FK506 (TACROLIMUS) WHOLE BLO ODon 07-12-2022 Tacrolimus (FK506), Blood 10.9 ng/mL Normal 2.0-20.0 [facility] Comment on above: Result Comment: Trou gh (immediately following transplant) 15.0 . Trough (steady state, 2 weeks or more after transplant): 3.0 - 8.0 . Performed by LC-MS/MS technology. Performed By: #### F K506T ####[facility] Iosankmvwx[address] [place], [place] [address]Dr. Farhat Leal CBC AUTO DIFFon 07-10-2022 BASO # 0.0 103/ul Normal 0.0-0.1 [facility] Comment on above: Performed By: #### C BC ####[facility] Slfirzmvln[address] [place], [place] [address]Dr. Farhat Leal Basophils/100 WBC (Bld) 0.5 % Normal 0.2-2.0 [facility] Comment on above: Performed By: #### C BC ####[facility] Bshtqxscqr[address] [place], [place] [address]Dr. Farhat Leal EO # 0.3 103/ul Normal 0.0-0.7 [facility] Comment on above: Performed By: #### C BC ####[facility] Nmpiysigyk[address] [place], [place] [address]Dr. Farhat Leal Eosinophils/100 WBC (Bld) 4.9 % Normal 0.9-7.0 [facility] Comment on above: Performed By: #### C BC ####[facility] Itjoyfahvs[address] [place], [place] [address]Dr. Farhat Leal Erythrocyte distribution width (RBC) [Ratio] 13.8 % Normal 11.0-15.0 [facility] Comment on above: Performed By: #### C BC ####[facility] [address]rju[address] [place] [address]Dr. Farhat Leal Hematocrit (Bld) [Volume fraction] 36.6 % Critically low 42.0-54.0 [facility] Comment on above: Performed By: #### C BC ####[facility] Gyqvekhcag[address] [place] [address]DrSkylar Leal Hemoglobin (Bld) [Mass/Vol] 12.2 g/dL Critically low 14.0-18.0 [facility] Comment on above: Performed By: #### C BC ####[facility] Sulcimnbcc[address] [place], [place] [address]DrSkylar Leal IG # 0.01 10e3/ul Normal 0.00-0.03 [facility] Comment on above: Performed By: #### C BC ####[facility] Yyqlvsarpi108[address] [place], [place] [address]Dr. Farhat Leal IG % 0.2 % Normal 0.0-0.5 [facility] Comment on above: Performed By: #### C BC ####[facility] Gnudnisxre[address] [place], [place] [address]DrSkylar Leal LYMPH # 2.2 103/ul Normal 1.2-3.8 [facility] Comment on above: Performed By: #### C BC ####[facility] Ohprvkndnm[address] [place], [place] [address]DrSkylar Leal Lymphocytes/100 WBC (Bld) 33.9 % Normal 20.5-60.0 [facility] Comment on above: Performed By: #### C BC ####[facility] Cnnvnmidtx8[address] [place], [place] [address]DrSkylar Leal MANUAL DIFF REQ NO Normal [facility] Comment on above: Performed By: #### C BC ####[facility] U[address]ockrhq[address] [place] [address]DrSkylar Leal MCH (RBC) [Entitic mass] 31.0 pg Normal 25.9-34.0 [facility] Comment on above: Performed By: #### C BC ####[facility] Hagmhxwaba[address] [place] [address]Dr. Farhat Leal MCHC (RBC) [Mass/Vol] 33.3 g/dL Normal 29.9-35.2 [facility] Comment on above: Performed By: #### C BC ####[facility] Uhpugbifpd05[address] [place] [address]Dr. Farhat Leal MCV (RBC) [Entitic vol] 93.1 fL Normal 80.0-94.0 [facility] Comment on above: Performed By: #### C BC ####[facility] Eadgmziguw19[address] [place], [place] [address]DrSkylar Leal MONO # 0.7 103/ul Normal 0.3-0.8 [facility] Comment on above: Performed By: #### C BC ####[facility] Cmgowxpqrl3216[address] [place], [place] [address]Dr. Farhat Leal Monocytes/100 WBC (Bld) 10.8 % Normal 1.7-12.0 [facility] Comment on above: Performed By: #### C BC ####[facility] Tzabdbtkat[address] [place], [place] [address]Dr. Farhat Leal NEUT # 3.2 103/ul Normal 1.4-6.5 [facility] Comment on above: Performed By: #### C BC ####[facility] Pysualdvcl43[address] [place], [place] [address]Dr. Farhat Leal Neutrophils/100 WBC (Bld) 49.7 % Normal 43.0-75.0 [facility] Comment on above: Performed By: #### C BC ####[facility] Yhoejufivi[address] [place], [place] [address]DrSkylar Leal Platelet mean volume (Bld) [Entitic vol] 10.9 fL Normal 9.5-13.5 [facility] Comment on above: Performed By: #### C BC ####[facility] Daieejtiwq[address] [place], [place] [address]Dr. Farhat Leal PLT 195 103/ul Normal 150-450 [facility] Comment on above: Performed By: #### C BC ####[facility] Gsgamspzaa[address] [place] [address]Dr. Farhat Leal RBC 3.93 106/ul Critically low 4.70-6.10 [facility] Comment on above: Performed By: #### C BC ####[facility] Jsqthnbtmo[address] [place] [address]Dr. Farhat Leal WBC 6.4 103/ul Normal 4.0-11.0 [facility] Comment on above: Performed By: #### C BC ####[facility] Lnzkixpobe[address] [place] [address]Dr. Farhat Leal MAGNESIUMon 07-10-2022 Magnesium [Mass/Vol] 1.9 mg/dL Normal 1.8-2.4 [facility] Comment on above: Performed By: #### HENRI Winters ####[facility] Hzdiglcwwt8[address] [place], [place] [address]Dr. Farhat Leal PHOSPHORUSon 07-10-2022 Phosphate [Mass/Vol] 4.7 mg/dL Normal 2.6-4.7 [facility] Comment on above: Performed By: #### HENRI Winters ####[facility] Sdvayfktuc[address] [place], [place] [address]Dr. Farhat Leal PROF 14(COMP METB)on 023 Albumin [Mass/Vol] 2.7 g/dL Critically low 3.4-5.0 [facility] Comment on above: Performed By: #### C MP ####[facility] Qpsenlhlsg3774 [place] [address]Dr. Farhat Leal Albumin/Globulin [Mass ratio] 0.8 {ratio} Normal [facility] Comment on above: Performed By: #### C MP ####[facility] Mrrorecjak60[address] [place] [address]Dr. Farhat Leal ALP [Catalytic activity/Vol] 59 U/L Normal 46-116 [facility] Comment on above: Performed By: #### C MP ####[facility] Wwqzgbfbgr5164 [place] [address]Dr. Farhat Leal ALT [Catalytic activity/Vol] 16 U/L Normal 16-63 [facility] Comment on above: Performed By: #### C MP ####[facility] Ihqtvauilr0918 [place] [address]Dr. Farhat Leal Anion gap [Moles/Vol] 12.3 mmol/L Normal [facility] Comment on above: Performed By: #### C MP ####[facility] Yovubmbqde398[address] [place], [place] [address]Dr. Farhat Leal AST [Catalytic activity/Vol] 17 U/L Normal 15-37 [facility] Comment on above: Performed By: #### C MP ####[facility] Flktxgoqrr9827[address] [place], [place] [address]Dr. Farhat Leal Bilirubin [Mass/Vol] 0.5 mg/dL Normal 0.2-1.0 [facility] Comment on above: Performed By: #### C MP ####[facility] Pjulmnufrs[address] [place], [place] [address]Dr. Farhat Leal Calcium [Mass/Vol] 8.5 mg/dL Normal 8.5-10.1 [facility] Comment on above: Performed By: #### C MP ####[facility] Aaqlijnjel[address] [place], [place] [address]Dr. Farhat Leal Chloride [Moles/Vol] 104 mmol/L Normal 98-107 [facility] Comment on above: Performed By: #### C MP ####[facility] Wblgfmntjp[address] [place], [place] [address]Dr. Farhat Leal CO2 [Moles/Vol] 27.6 mmol/L Normal 21.0-32.0 [facility] Comment on above: Performed By: #### C MP ####[facility] Hmeagivlzr315[address] [place], [place] [address]Dr. Farhat Leal Creatinine [Mass/Vol] 1.79 mg/dL Critically high 0.70-1.30 [facility] Comment on above: Performed By: #### C MP ####[facility] Iqxxrjxdpj13[address] [place] [address]Dr. Farhat Leal EGFR-AF [place] 45 mL/min/1.73m2 Critically low >=60 [facility] Comment on above: Performed By: #### C MP ####[facility] Cvvpliyxjl1704 [place] [address]Dr. Farhat Leal EGFR-NON AF [place] 37 mL/min/1.73m2 Critically low >=60 [facility] Comment on above: Performed By: #### C MP ####[facility] Mijgtzaulg3118 [place] [address]Dr. Farhat Leal Globulin (S) [Mass/Vol] 3.2 g/dL Normal [facility] Comment on above: Performed By: #### C MP ####[facility] Ldrmkonqeg7834[address] [place], [place] [address]Dr. Farhat Leal Glucose [Mass/Vol] 203 mg/dL Critically high 74-106 [facility] Comment on above: Performed By: #### C MP ####[facility] Twykcsniut057[address] [place], [place] [address]Dr. Farhat Leal Potassium [Moles/Vol] 3.9 mmol/L Normal 3.5-5.1 [facility] Comment on above: Performed By: #### C MP ####[facility] Bgibuunkuo[address] [place], [place] [address]Dr. Farhat Leal Protein [Mass/Vol] 5.9 g/dL Critically low 6.4-8.2 [facility] Comment on above: Performed By: #### C MP ####[facility] Saqedslysx1636 [place] [address]Dr. Farhat Leal Sodium [Moles/Vol] 140 mmol/L Normal 136-145 [facility] Comment on above: Performed By: #### C MP ####[facility] Vfcbsdymak114[address] [place], [place] [address]Dr. Farhat Leal Urea nitrogen [Mass/Vol] 61.0 mg/dL Critically high 7.0-18.0 [facility] Comment on above: Performed By: #### C MP ####[facility] Hlkqtrooit9[address] [place], [place] [address]Dr. Farhat Leal Urea nitrogen/Creatinine [Mass ratio] 34.1 mg/mg Normal [facility] Comment on above: Performed By: #### C MP ####[facility] Jfjwfvpqtl17[address] [place], [place] [address]DrSkylar Leal PROTIMEon 07-10-2022 INR Coag (PPP) [Relative time] 2.95 {INR} Normal [facility] Comment on above: Performed By: #### P T ####[facility] Ywowpopshu8[address] [place], [place] [address]DrSkylar Leal INR GUIDELINES SEE BELOW Normal [facility] Comment on above: Result Comment: MALINA RED INR: 2.0 - 3.0 CONDITIONS NOT LISTED BELOW 2.5 - 3.5 FOR PROSTHETIC HEART VALVE REPLACEMENT 2.5 - 3.5 RECURRENT THROMBOSIS Performed By: #### P T ####[facility] Aggrngsqxg166[address] [place], [place] [address]Dr. Farhat Leal PT Coag (PPP) [Time] 29.4 s Critically high 9.0-11.6 [facility] Comment on above: Performed By: #### P T ####[facility] Cefhvtogux[address] [place], [place] [address]Dr. Farhat Leal FK506 (TACROLIMUS) WHOLE BLO ODon 07-07-2022 Tacrolimus (FK506), Blood 8.3 ng/mL Normal 2.0-20.0 [facility] Comment on above: Result Comment: Trou gh (immediately following transplant) 15.0 . Trough (steady state, 2 weeks or more after transplant): 3.0 - 8.0 . Performed by LC-MS/MS technology. Performed By: #### F K506T ####[facility] Ojayxnyxye90[address] [place], [place] [address]DrSkylar Leal CBC AUTO DIFFon 07-03-2022 BASO # 0.0 103/ul Normal 0.0-0.1 [facility] Comment on above: Performed By: #### C BC ####[facility] Xuckwzjfvn42[address] [place], [place] [address]DrSkylar Leal Basophils/100 WBC (Bld) 0.6 % Normal 0.2-2.0 [facility] Comment on above: Performed By: #### C BC ####[facility] Rtngditblq9058 [place] [address]DrSkylar Leal EO # 0.3 103/ul Normal 0.0-0.7 [facility] Comment on above: Performed By: #### C BC ####[facility] Wbcjullcuz118[address] [place], [place] [address]DrSkylar Leal Eosinophils/100 WBC (Bld) 4.1 % Normal 0.9-7.0 [facility] Comment on above: Performed By: #### C BC ####[facility] Ceyqkkgjxb[address] [place], [place] [address]Dr. Farhat Leal Erythrocyte distribution width (RBC) [Ratio] 14.0 % Normal 11.0-15.0 [facility] Comment on above: Performed By: #### C BC ####[facility] Ixmstesdbg[address] [place], [place] [address]Dr. Farhat Leal Hematocrit (Bld) [Volume fraction] 35.9 % Critically low 42.0-54.0 [facility] Comment on above: Performed By: #### C BC ####[facility] Tpzirkmkcg207[address] [place], [place] [address]Dr. Farhat Leal Hemoglobin (Bld) [Mass/Vol] 12.0 g/dL Critically low 14.0-18.0 [facility] Comment on above: Performed By: #### C BC ####[facility] Odnanpwrel[address] [place], [place] [address]DrSkylar Leal IG # 0.04 10e3/ul Critically high 0.00-0.03 [facility] Comment on above: Performed By: #### C BC ####[facility] Ssptlsaakh[address] [place], [place] [address]DrSkylar Leal IG % 0.6 % Critically high 0.0-0.5 [facility] Comment on above: Performed By: #### C BC ####[facility] Ktzbdlnkjc8[address] [place], [place] [address]DrSkylar Leal LYMPH # 1.5 103/ul Normal 1.2-3.8 [facility] Comment on above: Performed By: #### C BC ####[facility] Nbszuygtjt50[address] [place] [address]DrSkylar Leal Lymphocytes/100 WBC (Bld) 21.5 % Normal 20.5-60.0 [facility] Comment on above: Performed By: #### C BC ####[facility] Sbeyrzizch9[address] [place] [address]DrSkylar Leal MANUAL DIFF REQ NO Normal [facility] Comment on above: Performed By: #### C BC ####[facility] Nzjxffvhjl0446 [place] [address]DrSkylar Leal MCH (RBC) [Entitic mass] 30.8 pg Normal 25.9-34.0 [facility] Comment on above: Performed By: #### C BC ####[facility] Akcjtirdiy[address] [place], [place] [address]DrSkylar Leal MCHC (RBC) [Mass/Vol] 33.4 g/dL Normal 29.9-35.2 [facility] Comment on above: Performed By: #### C BC ####[facility] Kyfxirngqg[address] [place], [place] [address]DrSkylar Leal MCV (RBC) [Entitic vol] 92.1 fL Normal 80.0-94.0 [facility] Comment on above: Performed By: #### C BC ####[facility] Gwjuemsnud[address] [place], [place] [address]DrSkylar Leal MONO # 0.6 103/ul Normal 0.3-0.8 [facility] Comment on above: Performed By: #### C BC ####[facility] Agudpbsnfi[address] [place], [place] [address]DrSkylar Leal Monocytes/100 WBC (Bld) 8.7 % Normal 1.7-12.0 [facility] Comment on above: Performed By: #### C BC ####[facility] Acctejmtkz18[address] [place], [place] [address]DrSkylar Leal NEUT # 4.4 103/ul Normal 1.4-6.5 [facility] Comment on above: Performed By: #### C BC ####[facility] Qqmmwshben9097 [place] [id number] Leal Neutrophils/100 WBC (Bld) 64.5 % Normal 43.0-75.0 [facility] Comment on above: Performed By: #### C BC ####[facility] Cfjjlmcpmy0203 [place] [id number] Leal Platelet mean volume (Bld) [Entitic vol] 10.1 fL Normal 9.5-13.5 [facility] Comment on above: Performed By: #### C BC ####[facility] Rlhkfvfqha[address] [place], [place] [address]DrSkylar Leal PLT 177 103/ul Normal 150-450 [facility] Comment on above: Performed By: #### C BC ####[facility] Nicqjdjyao018[address] [place], [place] [address]DrSkylar Leal RBC 3.90 106/ul Critically low 4.70-6.10 [facility] Comment on above: Performed By: #### C BC ####[facility] Qkngwxtuwv[address] [place], [place] [address]DrSkylar Leal WBC 6.8 103/ul Normal 4.0-11.0 [facility] Comment on above: Performed By: #### C BC ####[facility] Yktzsmrlnp[address] [place], [place] [address]Dr. Farhat Leal PROF 14(COMP METB)on 023 Albumin [Mass/Vol] 2.8 g/dL Critically low 3.4-5.0 [facility] Comment on above: Performed By: #### C MP ####[facility] Kbspaxmfqr[address] [place], [place] [address]DrSkylar Leal Albumin/Globulin [Mass ratio] 0.8 {ratio} Normal [facility] Comment on above: Performed By: #### C MP ####[facility] Dsojnzcvtj[address] [place], [place] [address]DrSkylar Leal ALP [Catalytic activity/Vol] 68 U/L Normal 46-116 [facility] Comment on above: Performed By: #### C MP ####[facility] Uosbbpbhva1678 [place] [address]Dr. Farhat Leal ALT [Catalytic activity/Vol] 20 U/L Normal 16-63 [facility] Comment on above: Performed By: #### C MP ####[facility] Hikllhgjlr[address] [place], [place] [address]Dr. Farhat Leal Anion gap [Moles/Vol] 11.1 mmol/L Normal [facility] Comment on above: Performed By: #### C MP ####[facility] Rwsmegcdnh9[address] [place], [place] [address]Dr. Farhat Leal AST [Catalytic activity/Vol] 22 U/L Normal 15-37 [facility] Comment on above: Performed By: #### C MP ####[facility] Qnflxezwqs90[address] [place], [place] [address]Dr. Farhat Elvis Bilirubin [Mass/Vol] 0.4 mg/dL Normal 0.2-1.0 [facility] Comment on above: Performed By: #### C MP ####[facility] Lxhnujqdkb14[address] [place], [place] [address]Dr. Farhat Elvis Calcium [Mass/Vol] 8.5 mg/dL Normal 8.5-10.1 [facility] Comment on above: Performed By: #### C MP ####[facility] Pifuvfvfse[address] [place], [place] [address]Dr. Farhat Leal Chloride [Moles/Vol] 106 mmol/L Normal 98-107 [facility] Comment on above: Performed By: #### C MP ####[facility] Etmqmattht[address] [place], [place] [address]Dr. Farhat Leal CO2 [Moles/Vol] 29.1 mmol/L Normal 21.0-32.[address] [facility] Comment on above: Performed By: #### C MP ####[facility] Exjrpjfxze[address] [place], [place] [id number]. Farhat Elvis Creatinine [Mass/Vol] 1.70 mg/dL Critically high 0.70-1.30 [facility] Comment on above: Performed By: #### C MP ####[facility] Doqzluqech[address] [place] [address]Dr. Farhat Leal EGFR-AF [place] 48 mL/min/1.73m2 Critically low >=60 [facility] Comment on above: Performed By: #### C MP ####[facility] Wjmsxvblco2527 [place] [address]Dr. Farhat Leal EGFR-NON AF [place] 39 mL/min/1.73m2 Critically low >=60 [facility] Comment on above: Performed By: #### C MP ####[facility] Rvntzqkbwe[address] [place], [place] [address]Dr. Farhat Leal Globulin (S) [Mass/Vol] 3.6 g/dL Normal [facility] Comment on above: Performed By: #### C MP ####[facility] Gfuclvrmcn32[address] [place], [place] [address]Dr. Farhat Leal Glucose [Mass/Vol] 312 mg/dL Critically high 74-106 T [facility] Comment on above: Performed By: #### C MP ####[facility] Vhrzoqfkle85[address] [place], [place] [address]Dr. Farhat Leal Potassium [Moles/Vol] 4.2 mmol/L Normal 3.5-5.1 [facility] Comment on above: Performed By: #### C MP ####[facility] Wcplknrsms74[address] [place], [place] [address]Dr. Farhat Leal Protein [Mass/Vol] 6.4 g/dL Normal 6.4-8.2 [facility] Comment on above: Performed By: #### C MP ####[facility] Varnwxetgq22[address] [place], [place] [address]Dr. Farhat Leal Sodium [Moles/Vol] 142 mmol/L Normal 136-145 [facility] Comment on above: Performed By: #### C MP ####[facility] Xmwynfidhl049[address] [place], [place] [address]Dr. Farhat Leal Urea nitrogen [Mass/Vol] 49.0 mg/dL Critically high 7.0-18.0 [facility] Comment on above: Performed By: #### C MP ####[facility] Oefsxwrbnq5351 [place] [address]DrSkylar Leal Urea nitrogen/Creatinine [Mass ratio] 28.8 mg/mg Normal [facility] Comment on above: Performed By: #### C MP ####[facility] Gvkesxaemx9[address] [place], [place] [address]DrSkylar Leal PROTIMEon 07-03-2022 INR Coag (PPP) [Relative time] 2.23 {INR} Normal [facility] Comment on above: Performed By: #### P T ####[facility] Ayhfukujdv98[address] [place], [place] [address]DrSkylar Leal INR GUIDELINES SEE BELOW Normal [facility] Comment on above: Result Comment: MALINA RED INR: 2.0 - 3.0 CONDITIONS NOT LISTED BELOW 2.5 - 3.5 FOR PROSTHETIC HEART VALVE REPLACEMENT 2.5 - 3.5 RECURRENT THROMBOSIS Performed By: #### P T ####[facility] Pndbzsjgpv008[address] [place], [place] [address]Dr. Farhat Leal PT Coag (PPP) [Time] 22.6 s Critically high 9.0-11.6 [facility] Comment on above: Performed By: #### P T ####[facility] Byorafmhbg067[address] [place], [place] [address]Dr. Farhat Leal FK506 (TACROLIMUS) WHOLE BLO ODon 06-29-2022 Tacrolimus (FK506), Blood 12.2 ng/mL Normal 2.0-20.0 [facility] Comment on above: Result Comment: Trou gh (immediately following transplant) 15.0 . Trough (steady state, 2 weeks or more after transplant): 3.0 - 8.0 . Performed by LC-MS/MS technology. Performed By: #### F K506T ####[facility] Gyfxcghhjq5537[address] [place], [place] [address]DrSkylar Leal CBC AUTO DIFFon 06-26-2022 BASO # 0.0 103/ul Normal 0.0-0.1 [facility] Comment on above: Performed By: #### C BC ####[facility] Avwymfdgum[address] [place] [id number]. Farhat Leal Basophils/100 WBC (Bld) 0.5 % Normal 0.2-2.0 [facility] Comment on above: Performed By: #### C BC ####[facility] Rswkgcymxx3425[address] [place], [place] [address]Dr. Farhat Leal EO # 0.3 103/ul Normal 0.0-0.7 [facility] Comment on above: Performed By: #### C BC ####[facility] Umlsxmgrww826[address] [place], [place] [address]Dr. Farhat Leal Eosinophils/100 WBC (Bld) 4.3 % Normal 0.9-7.0 [facility] Comment on above: Performed By: #### C BC ####[facility] Burbqkihgw694[address] [place], [place] [address]Dr. Farhat Leal Erythrocyte distribution width (RBC) [Ratio] 14.1 % Normal 11.0-15.0 [facility] Comment on above: Performed By: #### C BC ####[facility] Ndiongmjtn65[address] [place], [place] [address]Dr. Farhat Leal Hematocrit (Bld) [Volume fraction] 35.4 % Critically low 42.0-54.0 [facility] Comment on above: Performed By: #### C BC ####[facility] Jxbfvwtqou69[address] [place], [place] [address]Dr. Farhat Leal Hemoglobin (Bld) [Mass/Vol] 11.8 g/dL Critically low 14.0-18.0 [facility] Comment on above: Performed By: #### C BC ####[facility] Fwgdxahwfw[address] [place], [place] [address]Dr. Farhat Leal IG # 0.02 10e3/ul Normal 0.00-0.03 [facility] Comment on above: Performed By: #### C BC ####[facility] Xejssppyaq8801[address] [place], [place] [address]Dr. Farhat Leal IG % 0.3 % Normal 0.0-0.5 [facility] Comment on above: Performed By: #### C BC ####[facility] Cjwnkwgglx6745 [place] [id number]. Farhat Leal LYMPH # 2.4 103/ul Normal 1.2-3.8 [facility] Comment on above: Performed By: #### C BC ####[facility] Kywudmzhtb2203 [place] [phone]. Farhat Leal Lymphocytes/100 WBC (Bld) 40.4 % Normal 20.5-60.0 [facility] Comment on above: Performed By: #### C BC ####[facility] Cmgyssquhg3091 [place] [address]Dr. Farhat Leal MANUAL DIFF REQ NO Normal [facility] Comment on above: Performed By: #### C BC ####[facility] Cxewyvjbop4799 [place] [phone]. Farhat Leal MCH (RBC) [Entitic mass] 31.0 pg Normal 25.9-34.0 [facility] Comment on above: Performed By: #### C BC ####[facility] Nezaodffyo9794 [place] [phone]. Farhat Leal MCHC (RBC) [Mass/Vol] 33.3 g/dL Normal 29.9-35.2 [facility] Comment on above: Performed By: #### C BC ####[facility] Zjjmxejgxf8491 [place] [phone]. Farhat Leal MCV (RBC) [Entitic vol] 92.9 fL Normal 80.0-94.0 [facility] Comment on above: Performed By: #### C BC ####[facility] Uvpembzjne8758 [place] [phone]. Farhat Leal MONO # 0.7 103/ul Normal 0.3-0.8 [facility] Comment on above: Performed By: #### C BC ####[facility] Cdavhcizwx6408 [place] [id number]. Farhat Leal Monocytes/100 WBC (Bld) 11.1 % Normal 1.7-12.0 [facility] Comment on above: Performed By: #### C BC ####[facility] Pnwcxkqsru5601 [place] [id number]. Farhat Leal NEUT # 2.6 103/ul Normal 1.4-6.5 [facility] Comment on above: Performed By: #### C BC ####[facility] Wfulybnkty1167 [place] [phone]. Farhat Leal Neutrophils/100 WBC (Bld) 43.4 % Normal 43.0-75.0 [facility] Comment on above: Performed By: #### C BC ####[facility] Fqrwqgtods9468 [place] [phone]. Farhat Leal Platelet mean volume (Bld) [Entitic vol] 10.4 fL Normal 9.5-13.5 [facility] Comment on above: Performed By: #### C BC ####[facility] Rmtfalrmhd9170 [place] [phone]. Farhat Leal PLT 211 103/ul Normal 150-450 [facility] Comment on above: Performed By: #### C BC ####[facility] Cuugmgcfok1479 [place] [phone]. Farhat Leal RBC 3.81 106/ul Critically low 4.70-6.10 [facility] Comment on above: Performed By: #### C BC ####[facility] Fdipzbvgcb6946 [place] [phone]. Farhat Leal WBC 6.0 103/ul Normal 4.0-11.0 [facility] Comment on above: Performed By: #### C BC ####[facility] Ojyztmtszd8745 [place] [phone] Leal PROF 14(COMP METB)on 023 Albumin [Mass/Vol] 2.6 g/dL Critically low 3.4-5.0 [facility] Comment on above: Performed By: #### C MP ####[facility] Pcyytkhuef9050 [place] [id number] Leal Albumin/Globulin [Mass ratio] 0.8 {ratio} Normal [facility] Comment on above: Performed By: #### C MP ####[facility] Ihdyivnlla9715 [place] [address]Dr. Farhat Leal ALP [Catalytic activity/Vol] 64 U/L Normal 46-116 [facility] Comment on above: Performed By: #### C MP ####[facility] Niphyauael3291 [place] [address]Dr. Farhat Elvis ALT [Catalytic activity/Vol] 18 U/L Normal 16-63 [facility] Comment on above: Performed By: #### C MP ####[facility] Wqoxzbaoob80[address] [place], [place] [address]Dr. Farhat Leal Anion gap [Moles/Vol] 10.2 mmol/L Normal [facility] Comment on above: Performed By: #### C MP ####[facility] Dtrrmubxsh835[address] [place], [place] [address]Dr. Farhat Elvis AST [Catalytic activity/Vol] 16 U/L Normal 15-37 [facility] Comment on above: Performed By: #### C MP ####[facility] Lcqkxpdcyq033[address] [place], [place] [address]Dr. Madelynlorri Elvis Bilirubin [Mass/Vol] 0.6 mg/dL Normal 0.2-1.0 [facility] Comment on above: Performed By: #### C MP ####[facility] Bqhwfhvnwl400[address] [place], [place] [address]Dr. Farhat Leal Calcium [Mass/Vol] 8.5 mg/dL Normal 8.5-10.1 [facility] Comment on above: Performed By: #### C MP ####[facility] Gkfymastlc9045[address] [place], [place] [address]Dr. Farhat Leal Chloride [Moles/Vol] 106 mmol/L Normal 98-107 [facility] Comment on above: Performed By: #### C MP ####[facility] Cjgftecpay6527 [place] [address]Dr. Farhat Leal CO2 [Moles/Vol] 29.8 mmol/L Normal 21.0-32.[address] [facility] Comment on above: Performed By: #### C MP ####[facility] Sfzcirxldn9670 [place] [phone]. Farhat Leal Creatinine [Mass/Vol] 1.60 mg/dL Critically high 0.70-1.30 [facility] Comment on above: Performed By: #### C MP ####[facility] Fxqfxknnch0391 [place] [phone]. Farhat Leal EGFR-AF [place] 51 mL/min/1.73m2 Critically low >=60 [facility] Comment on above: Performed By: #### C MP ####[facility] Vcwiesuiyv2448 [place] [phone]. Farhat Elvis EGFR-NON AF [place] 42 mL/min/1.73m2 Critically low >=60 [facility] Comment on above: Performed By: #### C MP ####[facility] Gcnomqdzjm2992 [place] [phone]. Farhat Elvis Globulin (S) [Mass/Vol] 3.4 g/dL Normal [facility] Comment on above: Performed By: #### C MP ####[facility] Jetwuyirwk8734 [place] [phone]. Farhat Leal Glucose [Mass/Vol] 178 mg/dL Critically high 74-106 [facility] Comment on above: Performed By: #### C MP ####[facility] Qcfcizzeps6043 [place] [phone]. Farhat Elvis Potassium [Moles/Vol] 4.0 mmol/L Normal 3.5-5.1 [facility] Comment on above: Performed By: #### C MP ####[facility] Jkbrpsmexn7843 [place] [phone]. Farhat Leal Protein [Mass/Vol] 6.0 g/dL Critically low 6.4-8.2 [facility] Comment on above: Performed By: #### C MP ####[facility] Mirsgtdqgy1806 [place] [phone]. Madelynlorri Leal Sodium [Moles/Vol] 142 mmol/L Normal 136-145 [facility] Comment on above: Performed By: #### C MP ####[facility] Bkbxmuznwk9255 [place] [address]Dr. Farhat Leal Urea nitrogen [Mass/Vol] 49.0 mg/dL Critically high 7.0-18.0 [facility] Comment on above: Performed By: #### C MP ####[facility] Mpgrprkxwy2627 [place] [address]Dr. Farhat Leal Urea nitrogen/Creatinine [Mass ratio] 30.6 mg/mg Normal [facility] Comment on above: Performed By: #### C MP ####[facility] Tqzmamukir240[address] [place], [place] [address]Dr. Farhat Leal PROTIMEon 06-26-2022 INR Coag (PPP) [Relative time] 1.77 {INR} Normal [facility] Comment on above: Performed By: #### P T ####[facility] Ujkljpckrp824[address] [place], [place] [address]Dr. Farhat Leal INR GUIDELINES SEE BELOW Normal [facility] Comment on above: Result Comment: MALINA RED INR: 2.0 - 3.0 CONDITIONS NOT LISTED BELOW 2.5 - 3.5 FOR PROSTHETIC HEART VALVE REPLACEMENT 2.5 - 3.5 RECURRENT THROMBOSIS Performed By: #### P T ####[facility] Aollpbrtcp[address] [place], [place] [address]Dr. Farhat Leal PT Coag (PPP) [Time] 18.2 s Critically high 9.0-11.6 [facility] Comment on above: Performed By: #### P T ####[facility] Gakykfrzey025[address] [place], [place] [address]Dr. Farhat Leal FK506 (TACROLIMUS) WHOLE BLO ODon 06-22-2022 Tacrolimus (FK506), Blood 24.5 ng/mL Invalid Interpretation Code 2.0-20.0 [facility] Comment on above: Result Comment: Trou gh (immediately following transplant) 15.0 . Trough (steady state, 2 weeks or more after transplant): 3.0 - 8.0 . Performed by LC-MS/MS technology.Patient drug level exceeds published reference range. Evaluateclinically for signs of potential toxicity. Performed By: #### F K506T ####[facility] Jlaymuwkbm2792 [place] [phone]. Farhat Leal CBC AUTO DIFFon 06-19-2022 BASO # 0.1 103/ul Normal 0.0-0.1 [facility] Comment on above: Performed By: #### C BC ####[facility] Lttksljhcz5819 [place] [address]Dr. Farhat Leal Basophils/100 WBC (Bld) 0.7 % Normal 0.2-2.0 [facility] Comment on above: Performed By: #### C BC ####[facility] Wfapnhrvzd255[address] [place], [place] [address]Dr. Farhat Leal EO # 0.4 103/ul Normal 0.0-0.7 [facility] Comment on above: Performed By: #### C BC ####[facility] Bgaiwurqde606[address] [place], [place] [address]Dr. Madelynlorri Leal Eosinophils/100 WBC (Bld) 5.7 % Normal 0.9-7.0 [facility] Comment on above: Performed By: #### C BC ####[facility] Vyhatvqudz035[address] [place], [place] [address]Dr. Farhat Leal Erythrocyte distribution width (RBC) [Ratio] 14.5 % Normal 11.0-15.0 [facility] Comment on above: Performed By: #### C BC ####[facility] Wyimqanunh0545[address] [place], [place] [address]Dr. Farhat Leal Hematocrit (Bld) [Volume fraction] 34.1 % Critically low 42.0-54.0 [facility] Comment on above: Performed By: #### C BC ####[facility] Cvpafczhom1226[address] [place], [place] [address]Dr. Farhat Leal Hemoglobin (Bld) [Mass/Vol] 11.3 g/dL Critically low 14.0-18.0 [facility] Comment on above: Performed By: #### C BC ####[facility] Zbbkomqgpk5844[address] [place], [place] [address]Dr. Farhat Leal IG # 0.02 10e3/ul Normal 0.00-0.03 [facility] Comment on above: Performed By: #### C BC ####[facility] Vsqxjcedbl7343 [place] [address]Dr. Farhat Leal IG % 0.3 % Normal 0.0-0.5 [facility] Comment on above: Performed By: #### C BC ####[facility] Joxxtttywd2440 [place] [id number] Leal LYMPH # 3.1 103/ul Normal 1.2-3.8 [facility] Comment on above: Performed By: #### C BC ####[facility] Ytfvcokbog8543 [place] [address]Dr. Farhat Leal Lymphocytes/100 WBC (Bld) 40.6 % Normal 20.5-60.0 [facility] Comment on above: Performed By: #### C BC ####[facility] Fgnxlncgux[address] [place], [place] [address]DrSkylar Leal MANUAL DIFF REQ NO Normal [facility] Comment on above: Performed By: #### C BC ####[facility] Sqioouvovo1400 [place] [phone]. Madelynlorri Leal MCH (RBC) [Entitic mass] 30.6 pg Normal 25.9-34.0 [facility] Comment on above: Performed By: #### C BC ####[facility] Hgokaujvpu[address] [place], [place] [address]Dr. Farhat Leal MCHC (RBC) [Mass/Vol] 33.1 g/dL Normal 29.9-35.2 [facility] Comment on above: Performed By: #### C BC ####[facility] Kdmrynxsfb6[address] [place], [place] [address]DrSkylar Leal MCV (RBC) [Entitic vol] 92.4 fL Normal 80.0-94.0 [facility] Comment on above: Performed By: #### C BC ####[facility] Usvzmmjzik6077 [place] [phone] Leal MONO # 0.8 103/ul Normal 0.3-0.8 [facility] Comment on above: Performed By: #### C BC ####[facility] Zupfvmokrq1816 [place] [phone]. Farhat Leal Monocytes/100 WBC (Bld) 10.6 % Normal 1.7-12.0 [facility] Comment on above: Performed By: #### C BC ####[facility] Tnzxmdcqzr9556 [place] [phone]. Farhat Leal NEUT # 3.2 103/ul Normal 1.4-6.5 [facility] Comment on above: Performed By: #### C BC ####[facility] Btjlqyomhk5438 [place] [phone]. Farhat Leal Neutrophils/100 WBC (Bld) 42.1 % Critically low 43.0-75.0 [facility] Comment on above: Performed By: #### C BC ####[facility] Adhcgqssnq6573 [place] [address]Dr. Farhat Leal Platelet mean volume (Bld) [Entitic vol] 10.6 fL Normal 9.5-13.5 [facility] Comment on above: Performed By: #### C BC ####[facility] Qscvsdihnk3754 [place] [address]Dr. Farhat Leal PLT 187 103/ul Normal 150-450 [facility] Comment on above: Performed By: #### C BC ####[facility] Ntmsfgartm2709 [place] [phone]. Farhat Leal RBC 3.69 106/ul Critically low 4.70-6.10 [facility] Comment on above: Performed By: #### C BC ####[facility] Rmjhsyakyh8318 [place] [phone]. Farhat Leal WBC 7.7 103/ul Normal 4.0-11.0 [facility] Comment on above: Performed By: #### C BC ####[facility] Igwalbdqcb6116 [place] [phone] Leal PROF 14(COMP METB)on 023 Albumin [Mass/Vol] 2.5 g/dL Critically low 3.4-5.0 [facility] Comment on above: Performed By: #### C MP ####[facility] Meqodjgunw3310 [place] [address]Dr. Farhat Leal Albumin/Globulin [Mass ratio] 0.8 {ratio} Normal [facility] Comment on above: Performed By: #### C MP ####[facility] Fajuexplcd6864 [place] [address]Dr. Farhat Leal ALP [Catalytic activity/Vol] 60 U/L Normal 46-116 [facility] Comment on above: Performed By: #### C MP ####[facility] Kyinkwcfxb7727[address] [place], [place] [address]Dr. Farhat Leal ALT [Catalytic activity/Vol] 16 U/L Normal 16-63 [facility] Comment on above: Performed By: #### C MP ####[facility] Zoxwvsdkwe887[address] [place], [place] [address]Dr. Farhat Leal Anion gap [Moles/Vol] 9.1 mmol/L Normal [facility] Comment on above: Performed By: #### C MP ####[facility] Ojezcybbwp273[address] [place], [place] [address]Dr. Farhat Leal AST [Catalytic activity/Vol] 31 U/L Normal 15-37 [facility] Comment on above: Performed By: #### C MP ####[facility] Badyczfdgj945[address] [place], [place] [address]Dr. Farhat Leal Bilirubin [Mass/Vol] 0.3 mg/dL Normal 0.2-1.0 [facility] Comment on above: Performed By: #### C MP ####[facility] Zsscyijljh603[address] [place], [place] [address]Dr. Farhat Leal Calcium [Mass/Vol] 8.2 mg/dL Critically low 8.5-10.1 [facility] Comment on above: Performed By: #### C MP ####[facility] Iqximhmpsu8224[address] [place], [place] [address]Dr. Farhat Leal Chloride [Moles/Vol] 106 mmol/L Normal 98-107 [facility] Comment on above: Performed By: #### C MP ####[facility] Mulctvlajm3411 [place] [phone]. Farhat Leal CO2 [Moles/Vol] 27.0 mmol/L Normal 21.0-32.[address] [facility] Comment on above: Performed By: #### C MP ####[facility] Jgesnmgjle4415 [place] [phone]. Farhat Leal Creatinine [Mass/Vol] 1.51 mg/dL Critically high 0.70-1.30 [facility] Comment on above: Performed By: #### C MP ####[facility] Dpzbwdauww3500 [place] [phone]. Farhat Leal EGFR-AF [place] 55 mL/min/1.73m2 Critically low >=60 [facility] Comment on above: Performed By: #### C MP ####[facility] Aiguabsnyx5004 [place] [phone]. Farhat Elvis EGFR-NON AF [place] 45 mL/min/1.73m2 Critically low >=60 [facility] Comment on above: Performed By: #### C MP ####[facility] Uiokyrmhsd2995 [place] [phone]. Farhat Leal Globulin (S) [Mass/Vol] 3.2 g/dL Normal [facility] Comment on above: Performed By: #### C MP ####[facility] Pzncwrwzts5486 [place] [phone]. Farhat Leal Glucose [Mass/Vol] 165 mg/dL Critically high 74-106 [facility] Comment on above: Performed By: #### C MP ####[facility] Zjqwxvczhe2776 [place] [phone]. Farhat Leal Potassium [Moles/Vol] 4.1 mmol/L Normal 3.5-5.1 [facility] Comment on above: Performed By: #### C MP ####[facility] Snosaujksp6340 [place] [phone]. Farhat Leal Protein [Mass/Vol] 5.7 g/dL Critically low 6.4-8.2 [facility] Comment on above: Performed By: #### C MP ####[facility] Jqnqguwnni8382 [place] [phone]. Farhat Leal Sodium [Moles/Vol] 138 mmol/L Normal 136-145 [facility] Comment on above: Performed By: #### C MP ####[facility] Yairzuiakr7227 [place] [phone]. Farhat Leal Urea nitrogen [Mass/Vol] 51.0 mg/dL Critically high 7.0-18.0 [facility] Comment on above: Performed By: #### C MP ####[facility] Noxmrvmqqz2289 [place] [address]Dr. Farhat Leal Urea nitrogen/Creatinine [Mass ratio] 33.8 mg/mg Normal [facility] Comment on above: Performed By: #### C MP ####[facility] Eknndyewdz163[address] [place], [place] [address]Dr. Farhat Leal FK506 (TACROLIMUS) WHOLE BLO ODon 06-15-2022 Tacrolimus (FK506), Blood 16.4 ng/mL Normal 2.0-20.0 [facility] Comment on above: Result Comment: Trou gh (immediately following transplant) 15.0 . Trough (steady state, 2 weeks or more after transplant): 3.0 - 8.0 . Performed by LC-MS/MS technology. Performed By: #### F K506T ####[facility] Itleuiwpul566[address] [place], [place] [address]Dr. Farhat Leal PROTIMEon 06-15-2022 INR Coag (PPP) [Relative time] 1.64 {INR} Normal [facility] Comment on above: Performed By: #### P T ####[facility] Ftprujirrd150[address] [place], [place] [address]Dr. Farhat Leal INR GUIDELINES SEE BELOW Normal [facility] Comment on above: Result Comment: MALINA RED INR: 2.0 - 3.0 CONDITIONS NOT LISTED BELOW 2.5 - 3.5 FOR PROSTHETIC HEART VALVE REPLACEMENT 2.5 - 3.5 RECURRENT THROMBOSIS Performed By: #### P T ####[facility] Cbvjgegznh6313 [place] [address]Dr. Farhat Leal PT Coag (PPP) [Time] 16.9 s Critically high 9.0-11.6 [facility] Comment on above: Performed By: #### P T ####[facility] Wunqlvbjem040[address] [place], [place] [address]Dr. Madelynlorri Leal CBC AUTO DIFFon 06-12-2022 BASO # 0.0 103/ul Normal 0.0-0.1 [facility] Comment on above: Performed By: #### C BC ####[facility] Iduqnwkgss06[address] [place], [place] [address]Dr. Farhat Leal Basophils/100 WBC (Bld) 0.4 % Normal 0.2-2.0 [facility] Comment on above: Performed By: #### C BC ####[facility] Jgfoeohpsl40[address] [place], [place] [address]Dr. Farhat Leal EO # 0.4 103/ul Normal 0.0-0.7 [facility] Comment on above: Performed By: #### C BC ####[facility] Yvgwndmhqr468[address] [place], [place] [address]Dr. Farhat Leal Eosinophils/100 WBC (Bld) 5.4 % Normal 0.9-7.0 [facility] Comment on above: Performed By: #### C BC ####[facility] Rejjxdmtyu87[address] [place], [place] [address]Dr. Farhat Leal Erythrocyte distribution width (RBC) [Ratio] 14.7 % Normal 11.0-15.0 [facility] Comment on above: Performed By: #### C BC ####[facility] [id number] [place], [place] [address]Dr. Farhat Leal Hematocrit (Bld) [Volume fraction] 34.8 % Critically low 42.0-54.0 [facility] Comment on above: Performed By: #### C BC ####[facility] [id number] [place], [place] [address]Dr. Farhat Leal Hemoglobin (Bld) [Mass/Vol] 11.7 g/dL Critically low 14.0-18.0 [facility] Comment on above: Performed By: #### C BC ####[facility] Ipzvhuyguw[address] [place] [id number]. Farhat Leal IG # 0.02 10e3/ul Normal 0.00-0.03 [facility] Comment on above: Performed By: #### C BC ####[facility] Dmxaejhtoo2949 [place] [id number]. Farhat Leal IG % 0.3 % Normal 0.0-0.5 [facility] Comment on above: Performed By: #### C BC ####[facility] Qtugxwuauw34[address] [place] [address]Dr. Farhat Leal LYMPH # 2.5 103/ul Normal 1.2-3.8 [facility] Comment on above: Performed By: #### C BC ####[facility] Oduepbozsk9748 [place] [address]Dr. Madelynlorri Leal Lymphocytes/100 WBC (Bld) 36.8 % Normal 20.5-60.0 [facility] Comment on above: Performed By: #### C BC ####[facility] Tqkyxyxosn1195 [place] [address]Dr. Farhat Leal MANUAL DIFF REQ NO Normal [facility] Comment on above: Performed By: #### C BC ####[facility] Jvrattaxys6838 [place] [phone]. aFrhat Leal MCH (RBC) [Entitic mass] 30.9 pg Normal 25.9-34.0 [facility] Comment on above: Performed By: #### C BC ####[facility] Rwfyhoxawo[address] [place], [place] [id number]. Farhat Leal MCHC (RBC) [Mass/Vol] 33.6 g/dL Normal 29.9-35.2 [facility] Comment on above: Performed By: #### C BC ####[facility] Pzralebcae5566 [place] [phone]. Farhat Leal MCV (RBC) [Entitic vol] 91.8 fL Normal 80.0-94.0 [facility] Comment on above: Performed By: #### C BC ####[facility] Tmokrepgdy7218 [place] [phone]. Farhat Leal MONO # 0.8 103/ul Normal 0.3-0.8 [facility] Comment on above: Performed By: #### C BC ####[facility] Nznfbjhcyx8906 [place] [phone]. Farhat Leal Monocytes/100 WBC (Bld) 11.9 % Normal 1.7-12.0 [facility] Comment on above: Performed By: #### C BC ####[facility] Kwjixtltgh6116 [place] [phone]. Farhat Leal NEUT # 3.1 103/ul Normal 1.4-6.5 [facility] Comment on above: Performed By: #### C BC ####[facility] Qcuaupdnmu7[address] [place], [place] [address]Dr. Farhat Leal Neutrophils/100 WBC (Bld) 45.2 % Normal 43.0-75.0 [facility] Comment on above: Performed By: #### C BC ####[facility] Iyhimrwnik9718 [place] [phone]. Farhat Leal Platelet mean volume (Bld) [Entitic vol] 10.5 fL Normal 9.5-13.5 [facility] Comment on above: Performed By: #### C BC ####[facility] Yoewxuvxfb6287 [place] [phone]. Farhat Leal PLT 175 103/ul Normal 150-450 [facility] Comment on above: Performed By: #### C BC ####[facility] Gnwienihgl04[address] [place], [place] [address]Dr. Farhat Leal RBC 3.79 106/ul Critically low 4.70-6.10 [facility] Comment on above: Performed By: #### C BC ####[facility] Utvyothkfk4914 [place] [phone]. Farhat Leal WBC 6.8 103/ul Normal 4.0-11.0 [facility] Comment on above: Performed By: #### C BC ####[facility] Iqyozstsgk1746 [place] [address]Dr. Farhat Leal MAGNESIUMon 06-12-2022 Magnesium [Mass/Vol] 1.6 mg/dL Critically low 1.8-2.4 [facility] Comment on above: Performed By: #### C MP, MG, PHOS ####[facility] Bhjkaoszvz0935 [place] [address]Dr. Farhat Leal PHOSPHORUSon 06-12-2022 Phosphate [Mass/Vol] 3.8 mg/dL Normal 2.6-4.7 [facility] Comment on above: Performed By: #### C MP, MG, PHOS ####[facility] Mqjozbothq9888 [place] [address]Dr. Farhat Leal PROF 14(COMP METB)on 023 Albumin [Mass/Vol] 2.6 g/dL Critically low 3.4-5.0 [facility] Comment on above: Performed By: #### C MP, MG, PHOS ####[facility] Vrhlyuqttz[address] [place], [place] [address]Dr. Farhat Leal Albumin/Globulin [Mass ratio] 0.8 {ratio} Normal [facility] Comment on above: Performed By: #### C MP, MG, PHOS ####[facility] Vjnzleppyz7097 [place] [address]Dr. Farhat Leal ALP [Catalytic activity/Vol] 64 U/L Normal 46-116 [facility] Comment on above: Performed By: #### C MP, MG, PHOS ####[facility] Hyjshpuwey2531 [place] [address]Dr. Farhat Leal ALT [Catalytic activity/Vol] 18 U/L Normal 16-63 [facility] Comment on above: Performed By: #### C MP, MG, PHOS ####[facility] Wfmqrkacrb5450 [place] [address]Dr. Farhat Leal Anion gap [Moles/Vol] 12.9 mmol/L Normal [facility] Comment on above: Performed By: #### C MP, MG, PHOS ####[facility] Iihazspofs5321 [place] [address]Dr. Farhat Leal AST [Catalytic activity/Vol] 18 U/L Normal 15-37 [facility] Comment on above: Performed By: #### C MP, MG, PHOS ####[facility] Pdjsjgxczn8116 [place] [address]Dr. Farhat Leal Bilirubin [Mass/Vol] 0.4 mg/dL Normal 0.2-1.0 [facility] Comment on above: Performed By: #### C MP, MG, PHOS ####[facility] Rirnoiauot427[address] [place], [place] [address]Dr. Farhat Leal Calcium [Mass/Vol] 8.7 mg/dL Normal 8.5-10.1 [facility] Comment on above: Performed By: #### C MP, MG, PHOS ####[facility] Coonpnrrtb9264[address] [place], [place] [address]Dr. Farhat Leal Chloride [Moles/Vol] 105 mmol/L Normal 98-107 [facility] Comment on above: Performed By: #### C MP, MG, PHOS ####[facility] Tjcpnndesv9569 [place] [address]Dr. Farhat Leal CO2 [Moles/Vol] 27.9 mmol/L Normal 21.0-32.0 [facility] Comment on above: Performed By: #### C MP, MG, PHOS ####[facility] Fsojdxcuvz024[address] [place], [place] [address]Dr. Farhat Leal Creatinine [Mass/Vol] 1.53 mg/dL Critically high 0.70-1.30 [facility] Comment on above: Performed By: #### C MP, MG, PHOS ####[facility] Rxgnzspynw65[address] [place], [place] [address]Dr. Farhat Leal EGFR-AF [place] 54 mL/min/1.73m2 Critically low >=60 [facility] Comment on above: Performed By: #### C MP, MG, PHOS ####[facility] Lwpopupgua8385 [place] [address]Dr. Farhat Leal EGFR-NON AF [place] 44 mL/min/1.73m2 Critically low >=60 [facility] Comment on above: Performed By: #### C MP, MG, PHOS ####[facility] Hmrxlkiqgf3346 [place] [address]Dr. Farhat Leal Globulin (S) [Mass/Vol] 3.4 g/dL Normal [facility] Comment on above: Performed By: #### C MP, MG, PHOS ####[facility] Vhldsavtzz2271 [place] [address]Dr. Farhat Leal Glucose [Mass/Vol] 179 mg/dL Critically high 74-106 [facility] Comment on above: Performed By: #### C MP, MG, PHOS ####[facility] Tzamzpghhc66[address] [place], [place] [address]Dr. Farhat Leal Potassium [Moles/Vol] 3.8 mmol/L Normal 3.5-5.1 [facility] Comment on above: Performed By: #### C MP, MG, PHOS ####[facility] Wownttqdwq0425[address] [place], [place] [address]Dr. Farhat Leal Protein [Mass/Vol] 6.0 g/dL Critically low 6.4-8.2 [facility] Comment on above: Performed By: #### C MP, MG, PHOS ####[facility] Aktmwjxsjs5550[address] [place], [place] [address]Dr. Farhat Leal Sodium [Moles/Vol] 142 mmol/L Normal 136-145 [facility] Comment on above: Performed By: #### C MP, MG, PHOS ####[facility] Suaflgobvj967[address] [place], [place] [address]Dr. Farhat Leal Urea nitrogen [Mass/Vol] 56.0 mg/dL Critically high 7.0-18.0 [facility] Comment on above: Performed By: #### C MP, MG, PHOS ####[facility] Ibahwdgecv9838 [place] [address]Dr. Farhat Leal Urea nitrogen/Creatinine [Mass ratio] 36.6 mg/mg Normal [facility] Comment on above: Performed By: #### C MP, MG, PHOS ####[facility] Rzvxpcxqmm8519 [place] [address]Dr. Farhat Leal FK506 (TACROLIMUS) WHOLE BLO ODon 06-08-2022 Tacrolimus (FK506), Blood 13.2 ng/mL Normal 2.0-20.0 [facility] Comment on above: Result Comment: Trou gh (immediately following transplant) 15.0 . Trough (steady state, 2 weeks or more after transplant): 3.0 - 8.0 . Performed by LC-MS/MS technology. Performed By: #### F K506T ####[facility] Ubdqdfpxdm934[address] [place], [place] [address]Dr. Farhat Leal CBC AUTO DIFFon 06-05-2022 BASO # 0.1 103/ul Normal 0.0-0.1 [facility] Comment on above: Performed By: #### C BC ####[facility] Pufrqabien[address] [place], [place] [address]Dr. Farhat Leal Basophils/100 WBC (Bld) 0.8 % Normal 0.2-2.0 [facility] Comment on above: Performed By: #### C BC ####[facility] Puzowbgbls[address] [place], [place] [address]Dr. Farhat Leal EO # 0.3 103/ul Normal 0.0-0.7 [facility] Comment on above: Performed By: #### C BC ####[facility] Kabgzqfjjv287[address] [place], [place] [address]Dr. Farhat Leal Eosinophils/100 WBC (Bld) 4.7 % Normal 0.9-7.0 [facility] Comment on above: Performed By: #### C BC ####[facility] Fknlqfufhy456[address] [place], [place] [address]Dr. Farhat Leal Erythrocyte distribution width (RBC) [Ratio] 15.1 % Critically high 11.0-15.0 [facility] Comment on above: Performed By: #### C BC ####[facility] Vsizztoomo735[address] [place], [place] [address]Dr. Farhat Leal Hematocrit (Bld) [Volume fraction] 35.5 % Critically low 42.0-54.0 [facility] Comment on above: Performed By: #### C BC ####[facility] Lqkwnqkbbt6246 [place] [address]Dr. Farhat Leal Hemoglobin (Bld) [Mass/Vol] 11.7 g/dL Critically low 14.0-18.0 [facility] Comment on above: Performed By: #### C BC ####[facility] Vdoawnfrln3584 [place] [address]Dr. Farhat Leal IG # 0.01 10e3/ul Normal 0.00-0.03 [facility] Comment on above: Performed By: #### C BC ####[facility] Ikibaxcuvz9635 [place] [address]Dr. Farhat Leal IG % 0.2 % Normal 0.0-0.5 [facility] Comment on above: Performed By: #### C BC ####[facility] Tqdcmpqaya77[address] [place], [place] [address]Dr. Farhat Leal LYMPH # 2.1 103/ul Normal 1.2-3.8 [facility] Comment on above: Performed By: #### C BC ####[facility] Oyipniriji[address] [place], [place] [address]Dr. Farhat Leal Lymphocytes/100 WBC (Bld) 34.5 % Normal 20.5-60.0 [facility] Comment on above: Performed By: #### C BC ####[facility] Mlmegcqoju8427 [place] [address]Dr. Farhat Leal MANUAL DIFF REQ NO Normal [facility] Comment on above: Performed By: #### C BC ####[facility] Ufvtybyukx9194 [place] [address]Dr. Farhat Leal MCH (RBC) [Entitic mass] 30.6 pg Normal 25.9-34.0 [facility] Comment on above: Performed By: #### C BC ####[facility] Qbvxffboqc9425[address] [place], [place] [address]Dr. Farhat Leal MCHC (RBC) [Mass/Vol] 33.0 g/dL Normal 29.9-35.2 [facility] Comment on above: Performed By: #### C BC ####[facility] Ovbrckmerp7030 [place] [phone]. Farhat Leal MCV (RBC) [Entitic vol] 92.9 fL Normal 80.0-94.0 [facility] Comment on above: Performed By: #### C BC ####[facility] Dtydvesuyw2758 [place] [phone]. Farhat Leal MONO # 0.7 103/ul Normal 0.3-0.8 [facility] Comment on above: Performed By: #### C BC ####[facility] Nftzwysihz3917 [place] [phone]. Farhat Elvis Monocytes/100 WBC (Bld) 11.4 % Normal 1.7-12.0 [facility] Comment on above: Performed By: #### C BC ####[facility] Zzwznqyxia15[address] [place], [place] [address]Dr. Farhat Leal NEUT # 2.9 103/ul Normal 1.4-6.5 [facility] Comment on above: Performed By: #### C BC ####[facility] Usfwjabodd1443[address] [place], [place] [address]Dr. Farhat Elvis Neutrophils/100 WBC (Bld) 48.4 % Normal 43.0-75.0 [facility] Comment on above: Performed By: #### C BC ####[facility] Fsltccakoj60[address] [place], [place] [address]Dr. Farhat Elvis Platelet mean volume (Bld) [Entitic vol] 10.7 fL Normal 9.5-13.5 [facility] Comment on above: Performed By: #### C BC ####[facility] Mxoegxojqt9649 [place] [phone]. Farhat Elvis PLT 185 103/ul Normal 150-450 [facility] Comment on above: Performed By: #### C BC ####[facility] Evwllxnhea3533 [place] [phone]. Farhat Leal RBC 3.82 106/ul Critically low 4.70-6.10 [facility] Comment on above: Performed By: #### C BC ####[facility] Maouixjcvf9752 [place] [phone]. Farhat Leal WBC 6.0 103/ul Normal 4.0-11.0 [facility] Comment on above: Performed By: #### C BC ####[facility] Ixifffjptt7459 [place] [phone]. Farhat Leal MAGNESIUMon 06-05-2022 Magnesium [Mass/Vol] 1.9 mg/dL Normal 1.8-2.4 [facility] Comment on above: Performed By: #### P HOS, MG ####[facility] Etkdpmxljj5078 [place] [address]Dr. Farhat Leal PHOSPHORUSon 06-05-2022 Phosphate [Mass/Vol] 4.4 mg/dL Normal 2.6-4.7 [facility] Comment on above: Performed By: #### P HOS, MG ####[facility] Msjypmiqxp7074 [place] [address]Dr. Farhat Elvis PROTIMEon 06-05-2022 INR Coag (PPP) [Relative time] 2.16 {INR} Normal [facility] Comment on above: Performed By: #### P T ####[facility] Lufkhrdyes[address] [place], [place] [address]Dr. Farhat Leal INR GUIDELINES SEE BELOW Normal [facility] Comment on above: Result Comment: MALINA RED INR: 2.0 - 3.0 CONDITIONS NOT LISTED BELOW 2.5 - 3.5 FOR PROSTHETIC HEART VALVE REPLACEMENT 2.5 - 3.5 RECURRENT THROMBOSIS Performed By: #### P T ####[facility] Ofidiuhlpv0114 [place] [address]Dr. Farhat Leal PT Coag (PPP) [Time] 21.9 s Critically high 9.0-11.6 [facility] Comment on above: Performed By: #### P T ####[facility] Rbxgrhflwd1366 [place] [address]Dr. Farhat Elvis FK506 (TACROLIMUS) WHOLE BLO ODon 06-01-2022 Tacrolimus (FK506), Blood 26.4 ng/mL Invalid Interpretation Code 2.0-20.0 [facility] Comment on above: Result Comment: Trou gh (immediately following transplant) 15.0 . Trough (steady state, 2 weeks or more after transplant): 3.0 - 8.0 . Performed by LC-MS/MS technology.Patient drug level exceeds published reference range. Evaluateclinically for signs of potential toxicity. Performed By: #### F K506T ####[facility] Wfigqpvume448[address] [place], [place] [address]DrSkylar Leal CBC AUTO DIFFon 05-29-2022 BASO # 0.0 103/ul Normal 0.0-0.1 [facility] Comment on above: Performed By: #### C BC ####[facility] Hzddnontdb475[address] [place], [place] [address]DrSkylar Leal Basophils/100 WBC (Bld) 0.6 % Normal 0.2-2.0 [facility] Comment on above: Performed By: #### C BC ####[facility] Mhohgwqzjy74[address] [place], [place] [address]DrSkylar Leal EO # 0.3 103/ul Normal 0.0-0.7 [facility] Comment on above: Performed By: #### C BC ####[facility] Zrtvttsxct9[address] [place], [place] [address]DrSkylar Leal Eosinophils/100 WBC (Bld) 4.7 % Normal 0.9-7.0 [facility] Comment on above: Performed By: #### C BC ####[facility] Ufvtbpokkr085[address] [place], [place] [address]DrSkylar Leal Erythrocyte distribution width (RBC) [Ratio] 15.3 % Critically high 11.0-15.0 [facility] Comment on above: Performed By: #### C BC ####[facility] Jjfrghzdzn26[address] [place], [place] [address]DrSkylar Leal Hematocrit (Bld) [Volume fraction] 36.6 % Critically low 42.0-54.0 [facility] Comment on above: Performed By: #### C BC ####[facility] Liwvfrkfgs[address] [place], [place] [address]DrSkylar Leal Hemoglobin (Bld) [Mass/Vol] 12.3 g/dL Critically low 14.0-18.0 [facility] Comment on above: Performed By: #### C BC ####[facility] Rzwhpllpft9226 [place] [address]DrSkylar Leal IG # 0.02 10e3/ul Normal 0.00-0.03 [facility] Comment on above: Performed By: #### C BC ####[facility] Bhizbswort0365 [place] [address]DrSkylar Leal IG % 0.3 % Normal 0.0-0.5 [facility] Comment on above: Performed By: #### C BC ####[facility] Lrfyfysjjz512[address] [place], [place] [address]DrSkylar Leal LYMPH # 2.8 103/ul Normal 1.2-3.8 [facility] Comment on above: Performed By: #### C BC ####[facility] Cwsvhryqzt488[address] [place], [place] [address]DrSkylar Leal Lymphocytes/100 WBC (Bld) 44.4 % Normal 20.5-60.0 [facility] Comment on above: Performed By: #### C BC ####[facility] Lzyzduhkeb99[address] [place], [place] [address]DrSkylar Leal MANUAL DIFF REQ NO Normal [facility] Comment on above: Performed By: #### C BC ####[facility] Pxpbbdhvxr920[address] [place], [place] [address]DrSkylar Leal MCH (RBC) [Entitic mass] 30.4 pg Normal 25.9-34.0 [facility] Comment on above: Performed By: #### C BC ####[facility] Oabpwjeykv794[address] [place], [place] [address]DrSyklar Leal MCHC (RBC) [Mass/Vol] 33.6 g/dL Normal 29.9-35.2 [facility] Comment on above: Performed By: #### C BC ####[facility] Kjuspbaksy9875[address] [place], [place] [address]DrSkylar Leal MCV (RBC) [Entitic vol] 90.4 fL Normal 80.0-94.0 [facility] Comment on above: Performed By: #### C BC ####[facility] Ohmiefhlro3035[address] [place], [place] [address]Dr. Farhat Leal MONO # 0.7 103/ul Normal 0.3-0.8 [facility] Comment on above: Performed By: #### C BC ####[facility] Iljjeqhywy44119[address] [place], [place] [address]Dr. Farhat Leal Monocytes/100 WBC (Bld) 10.7 % Normal 1.7-12.0 [facility] Comment on above: Performed By: #### C BC ####[facility] Lvybxnrbjq646[address] [place], [place] [address]Dr. Farhat Leal NEUT # 2.5 103/ul Normal 1.4-6.5 [facility] Comment on above: Performed By: #### C BC ####[facility] Okwoxqdmaj570[address] [place], [place] [address]Dr. Farhat Leal Neutrophils/100 WBC (Bld) 39.3 % Critically low 43.0-75.0 [facility] Comment on above: Performed By: #### C BC ####[facility] Xtwlztahqp814[address] [place], [place] [address]Dr. Farhat Leal Platelet mean volume (Bld) [Entitic vol] 10.5 fL Normal 9.5-13.5 [facility] Comment on above: Performed By: #### C BC ####[facility] Phlubktixh2025[address] [place], [place] [address]Dr. Farhat Elvis PLT 190 103/ul Normal 150-450 [facility] Comment on above: Performed By: #### C BC ####[facility] Lgathggenk1110[address] [place], [place] [address]Dr. Madelynlorri Elvis RBC 4.05 106/ul Critically low 4.70-6.10 [facility] Comment on above: Performed By: #### C BC ####[facility] Boltracbwc910[address] [place], [place] [address]Dr. Farhat Leal WBC 6.4 103/ul Normal 4.0-11.0 [facility] Comment on above: Performed By: #### C BC ####[facility] Ybrknhumpf2177 [place] [address]Dr. Farhat Leal PROF 14(COMP METB)on 023 Albumin [Mass/Vol] 2.5 g/dL Critically low 3.4-5.0 [facility] Comment on above: Performed By: #### C MP ####[facility] Ewwseeldbl238[address] [place], [place] [address]Dr. Farhat Leal Albumin/Globulin [Mass ratio] 0.8 {ratio} Normal [facility] Comment on above: Performed By: #### C MP ####[facility] Detzdiovvl169[address] [place], [place] [address]Dr. Farhat Leal ALP [Catalytic activity/Vol] 61 U/L Normal 46-116 [facility] Comment on above: Performed By: #### C MP ####[facility] Jpzcvlitux767[address] [place], [place] [address]Dr. Farhat Leal ALT [Catalytic activity/Vol] 16 U/L Normal 16-63 [facility] Comment on above: Performed By: #### C MP ####[facility] Qddxornput70299[address] [place], [place] [address]Dr. Farhat Leal Anion gap [Moles/Vol] 12.3 mmol/L Normal [facility] Comment on above: Performed By: #### C MP ####[facility] Hpmfwghmtu5936[address] [place], [place] [address]Dr. Farhat Leal AST [Catalytic activity/Vol] 18 U/L Normal 15-37 [facility] Comment on above: Performed By: #### C MP ####[facility] Gruiezkwfl2537[address] [place], [place] [address]Dr. Farhat Leal Bilirubin [Mass/Vol] 0.5 mg/dL Normal 0.2-1.0 [facility] Comment on above: Performed By: #### C MP ####[facility] Yifqdidcds823[address] [place], [place] [address]Dr. Farhat Leal Calcium [Mass/Vol] 8.6 mg/dL Normal 8.5-10.1 [facility] Comment on above: Performed By: #### C MP ####[facility] Oqhqeqvzlk7453 [place] [address]Dr. Farhat Elvis Chloride [Moles/Vol] 105 mmol/L Normal 98-107 [facility] Comment on above: Performed By: #### C MP ####[facility] Ydogplndan8871 [place] [address]Dr. Farhat Elvis CO2 [Moles/Vol] 28.6 mmol/L Normal 21.0-32.[address] [facility] Comment on above: Performed By: #### C MP ####[facility] Ijwzjozqhe136[address] [place], [place] [address]Dr. Farhat Leal Creatinine [Mass/Vol] 1.47 mg/dL Critically high 0.70-1.30 [facility] Comment on above: Performed By: #### C MP ####[facility] Jdtcadtxtz838[address] [place], [place] [address]Dr. Farhat Elvis EGFR-AF [place] 56 mL/min/1.73m2 Critically low >=60 [facility] Comment on above: Performed By: #### C MP ####[facility] Cgcqisrgwl9040[address] [place], [place] [address]Dr. Madelynlorri Elvis EGFR-NON AF [place] 46 mL/min/1.73m2 Critically low >=60 [facility] Comment on above: Performed By: #### C MP ####[facility] Vsrbpklpmw879[address] [place], [place] [address]Dr. Farhat Leal Globulin (S) [Mass/Vol] 3.3 g/dL Normal [facility] Comment on above: Performed By: #### C MP ####[facility] Tvtrmwnden2416[address] [place], [place] [address]Dr. Farhat Leal Glucose [Mass/Vol] 164 mg/dL Critically high 74-106 T [facility] Comment on above: Performed By: #### C MP ####[facility] Ktjhmyfvso67[address] [place], [place] [address]Dr. Farhat Leal Potassium [Moles/Vol] 3.9 mmol/L Normal 3.5-5.1 [facility] Comment on above: Performed By: #### C MP ####[facility] Keuuemoxdb6522 [place] [address]Dr. Farhat Leal Protein [Mass/Vol] 5.8 g/dL Critically low 6.4-8.2 [facility] Comment on above: Performed By: #### C MP ####[facility] Mnodmsswan7683 [place] [address]Dr. Farhat Leal Sodium [Moles/Vol] 142 mmol/L Normal 136-145 [facility] Comment on above: Performed By: #### C MP ####[facility] Kappwiddxc245[address] [place], [place] [address]Dr. Farhat Leal Urea nitrogen [Mass/Vol] 53.0 mg/dL Critically high 7.0-18.0 [facility] Comment on above: Performed By: #### C MP ####[facility] Hbrcunguil83[address] [place], [place] [address]Dr. Farhat Leal Urea nitrogen/Creatinine [Mass ratio] 36.1 mg/mg Normal [facility] Comment on above: Performed By: #### C MP ####[facility] Ghktuqydsd[address] [place], [place] [address]DrSkylar Leal PROTIMEon 05-29-2022 INR Coag (PPP) [Relative time] 2.41 {INR} Normal [facility] Comment on above: Performed By: #### P T ####[facility] [id number] [place], [place] [address]Dr. Farhat Leal INR GUIDELINES SEE BELOW Normal [facility] Comment on above: Result Comment: MALINA RED INR: 2.0 - 3.0 CONDITIONS NOT LISTED BELOW 2.5 - 3.5 FOR PROSTHETIC HEART VALVE REPLACEMENT 2.5 - 3.5 RECURRENT THROMBOSIS Performed By: #### P T ####[facility] [address] [place], [place] [address]Dr. Farhat Leal PT Coag (PPP) [Time] 24.3 s Critically high 9.0-11.6 [facility] Comment on above: Performed By: #### P T ####[facility] Xp[address] [place], [place] [address]Dr. Farhat Leal FK506 (TACROLIMUS) WHOLE BLO ODon 05-25-2022 Tacrolimus (FK506), Blood 5.1 ng/mL Normal 2.0-20.0 [facility] Comment on above: Result Comment: Trou gh (immediately following transplant) 15.0 . Trough (steady state, 2 weeks or more after transplant): 3.0 - 8.0 . Performed by LC-MS/MS technology. Performed By: #### F K506T ####[facility] Tgexmrocwf[address] [place], [place] [address]Dr. Farhat Leal CBC AUTO DIFFon 05-22-2022 BASO # 0.0 103/ul Normal 0.0-0.1 [facility] Comment on above: Performed By: #### C BC ####[facility] Fjyceynuab[address] [place], [place] [address]Dr. Farhat Leal Basophils/100 WBC (Bld) 0.5 % Normal 0.2-2.0 [facility] Comment on above: Performed By: #### C BC ####[facility] Csdyxxsogy56[address] [place], [place] [address]Dr. Farhat Leal EO # 0.2 103/ul Normal 0.0-0.7 [facility] Comment on above: Performed By: #### C BC ####[facility] Jeopmqofol71[address] [place], [place] [address]Dr. Farhat Leal Eosinophils/100 WBC (Bld) 4.0 % Normal 0.9-7.0 [facility] Comment on above: Performed By: #### C BC ####[facility] Tkbyyqhryw89[address] [place], [place] [address]Dr. Farhat Leal Erythrocyte distribution width (RBC) [Ratio] 15.5 % Critically high 11.0-15.0 [facility] Comment on above: Performed By: #### C BC ####[facility] Tmckhrholg70[address] [place], [place] [address]Dr. Farhat Leal Hematocrit (Bld) [Volume fraction] 34.1 % Critically low 42.0-54.0 [facility] Comment on above: Performed By: #### C BC ####[facility] Ynzhdtzxju32[address] [place] [address]Dr. Farhat Leal Hemoglobin (Bld) [Mass/Vol] 11.3 g/dL Critically low 14.0-18.0 [facility] Comment on above: Performed By: #### C BC ####[facility] Otcqbjarzr[address] [place] [address]Dr. Farhat Leal IG # 0.03 10e3/ul Normal 0.00-0.03 [facility] Comment on above: Performed By: #### C BC ####[facility] Axdugfpbof9168 [place] [address]Dr. Farhat Leal IG % 0.5 % Normal 0.0-0.5 [facility] Comment on above: Performed By: #### C BC ####[facility] Lzlpnaymlm906[address] [place], [place] [address]Dr. Farhat Leal LYMPH # 2.1 103/ul Normal 1.2-3.8 [facility] Comment on above: Performed By: #### C BC ####[facility] Frrxfblxoy937[address] [place], [place] [address]Dr. Madelynlorri Leal Lymphocytes/100 WBC (Bld) 34.6 % Normal 20.5-60.0 [facility] Comment on above: Performed By: #### C BC ####[facility] Vpmknphjmr1873 [place] [address]Dr. Farhat Leal MANUAL DIFF REQ NO Normal [facility] Comment on above: Performed By: #### C BC ####[facility] Jxfkmplyju8684 [place] [address]Dr. Farhat Leal MCH (RBC) [Entitic mass] 30.3 pg Normal 25.9-34.0 [facility] Comment on above: Performed By: #### C BC ####[facility] Mdxjvqryud9335 [place] [address]Dr. Farhat Leal MCHC (RBC) [Mass/Vol] 33.1 g/dL Normal 29.9-35.2 [facility] Comment on above: Performed By: #### C BC ####[facility] Yuwsxphleu59[address] [place] [id number]. Farhat Leal MCV (RBC) [Entitic vol] 91.4 fL Normal 80.0-94.0 [facility] Comment on above: Performed By: #### C BC ####[facility] Gedktxanvu5165 [place] [id number]. Farhat Leal MONO # 0.7 103/ul Normal 0.3-0.8 [facility] Comment on above: Performed By: #### C BC ####[facility] Sshpuqsrsm5610 [place] [address]Dr. Farhat Lael Monocytes/100 WBC (Bld) 11.6 % Normal 1.7-12.0 [facility] Comment on above: Performed By: #### C BC ####[facility] Pshjxfpkgq516[address] [place], [place] [address]Dr. Farhat Leal NEUT # 2.9 103/ul Normal 1.4-6.5 [facility] Comment on above: Performed By: #### C BC ####[facility] Hgqwvjytsr8[address] [place], [place] [id number]. Farhat Leal Neutrophils/100 WBC (Bld) 48.8 % Normal 43.0-75.0 [facility] Comment on above: Performed By: #### C BC ####[facility] Dklvpyiboa0436 [place] [id number]. Farhat Leal Platelet mean volume (Bld) [Entitic vol] 10.9 fL Normal 9.5-13.5 [facility] Comment on above: Performed By: #### C BC ####[facility] Ywrsjffism6178 [place] [phone]. Farhat Leal PLT 186 103/ul Normal 150-450 [facility] Comment on above: Performed By: #### C BC ####[facility] Fytdljrujm6400 [place] [phone]. Farhat Elvis RBC 3.73 106/ul Critically low 4.70-6.10 [facility] Comment on above: Performed By: #### C BC ####[facility] Auquibajgm0833 [place] [address]Dr. Farhat Leal WBC 6.0 103/ul Normal 4.0-11.0 [facility] Comment on above: Performed By: #### C BC ####[facility] Cyaqfiwdvh6872 [place] [address]Dr. Farhat Leal PROF 14(COMP METB)on 023 Albumin [Mass/Vol] 2.7 g/dL Critically low 3.4-5.0 [facility] Comment on above: Performed By: #### C MP ####[facility] Gggomzilig7797 [place] [address]Dr. Farhat Leal Albumin/Globulin [Mass ratio] 0.8 {ratio} Normal [facility] Comment on above: Performed By: #### C MP ####[facility] Iegjlqbqju084[address] [place], [place] [address]Dr. Farhat Leal ALP [Catalytic activity/Vol] 60 U/L Normal 46-116 [facility] Comment on above: Performed By: #### C MP ####[facility] Uibnyqmjxt9912[address] [place], [place] [address]Dr. Farhat Leal ALT [Catalytic activity/Vol] 17 U/L Normal 16-63 [facility] Comment on above: Performed By: #### C MP ####[facility] Tovalzyfto990[address] [place], [place] [address]Dr. Farhat Leal Anion gap [Moles/Vol] 9.6 mmol/L Normal [facility] Comment on above: Performed By: #### C MP ####[facility] Jrygjzwcsp0147[address] [place], [place] [address]Dr. Farhat Leal AST [Catalytic activity/Vol] 14 U/L Critically low 15-37 [facility] Comment on above: Performed By: #### C MP ####[facility] Zmsevhjshe914[address] [place], [place] [address]Dr. Farhat Leal Bilirubin [Mass/Vol] 0.5 mg/dL Normal 0.2-1.0 [facility] Comment on above: Performed By: #### C MP ####[facility] Idmsptibyb0052 [place] [phone]. Farhat Leal Calcium [Mass/Vol] 8.4 mg/dL Critically low 8.5-10.1 [facility] Comment on above: Performed By: #### C MP ####[facility] Mpboxnagqj7728 [place] [address]Dr. Farhat Leal Chloride [Moles/Vol] 104 mmol/L Normal 98-107 [facility] Comment on above: Performed By: #### C MP ####[facility] Eagghcgmnf3600 [place] [address]Dr. Farhat Leal CO2 [Moles/Vol] 27.2 mmol/L Normal 21.0-32.[address] [facility] Comment on above: Performed By: #### C MP ####[facility] Iktzlhziyh610[address] [place], [place] [address]Dr. Farhat Leal Creatinine [Mass/Vol] 1.24 mg/dL Normal 0.70-1.30 [facility] Comment on above: Performed By: #### C MP ####[facility] Zvedmizntb6023 [place] [address]Dr. Farhat Leal EGFR-AF [place] >60 Normal >=[address] [facility] Comment on above: Performed By: #### C MP ####[facility] Eqkwrxexwa8145 [place] [address]Dr. Farhat Leal EGFR-NON AF [place] 57 mL/min/1.73m2 Critically low >=60 [facility] Comment on above: Performed By: #### C MP ####[facility] Kdzagywisa9065 [place] [phone]. Farhat Leal Globulin (S) [Mass/Vol] 3.3 g/dL Normal [facility] Comment on above: Performed By: #### C MP ####[facility] Axavtxjwhz2095 [place] [address]Dr. Farhat Leal Glucose [Mass/Vol] 275 mg/dL Critically high 74-106 [facility] Comment on above: Performed By: #### C MP ####[facility] Icxuhoupgb7461 [place] [phone]. Farhat Leal Potassium [Moles/Vol] 3.8 mmol/L Normal 3.5-5.1 [facility] Comment on above: Performed By: #### C MP ####[facility] Dajfxlohoe6102 [place] [address]Dr. Farhat Leal Protein [Mass/Vol] 6.0 g/dL Critically low 6.4-8.2 [facility] Comment on above: Performed By: #### C MP ####[facility] Nvjnioxxgz790[address] [place], [place] [address]Dr. Farhat Leal Sodium [Moles/Vol] 137 mmol/L Normal 136-145 [facility] Comment on above: Performed By: #### C MP ####[facility] Wnpnnwknyt620[address] [place], [place] [address]Dr. Farhat Leal Urea nitrogen [Mass/Vol] 54.0 mg/dL Critically high 7.0-18.0 [facility] Comment on above: Performed By: #### C MP ####[facility] Phdsuycnnc361293 [address] [place], [place] [address]Dr. Farhat Leal Urea nitrogen/Creatinine [Mass ratio] 43.5 mg/mg Normal [facility] Comment on above: Performed By: #### C MP ####[facility] Kwsxgmgaft7545[address] [place], [place] [address]Dr. Farhat Leal PROTIMEon 05-22-2022 INR Coag (PPP) [Relative time] 2.27 {INR} Normal [facility] Comment on above: Performed By: #### P T ####[facility] Nncevzcxyk819[address] [place], [place] [address]Dr. Farhat Leal INR GUIDELINES SEE BELOW Normal [facility] Comment on above: Result Comment: MALINA RED INR: 2.0 - 3.0 CONDITIONS NOT LISTED BELOW 2.5 - 3.5 FOR PROSTHETIC HEART VALVE REPLACEMENT 2.5 - 3.5 RECURRENT THROMBOSIS Performed By: #### P T ####[facility] Krvitucomy376693 [address] [place], [place] [address]Dr. Farhat Leal PT Coag (PPP) [Time] 23.0 s Critically high 9.0-11.6 [facility] Comment on above: Performed By: #### P T ####[facility] Zwyjyiunta7560[address] [place], [place] [address]Dr. Farhat Leal FK506 (TACROLIMUS) WHOLE BLO ODon 05-19-2022 Tacrolimus (FK506), Blood 7.8 ng/mL Normal 2.0-20.0 [facility] Comment on above: Result Comment: Trou gh (immediately following transplant) 15.0 . Trough (steady state, 2 weeks or more after transplant): 3.0 - 8.0 . Performed by LC-MS/MS technology. Performed By: #### F K506T ####[facility] Rsoimmftoc1617[address] [place], [place] [address]Dr. Farhat Elvis CBC AUTO DIFFon 05-15-2022 BASO # 0.0 103/ul Normal 0.0-0.1 [facility] Comment on above: Performed By: #### C BC ####[facility] Tbyzwmzjil9990[address] [place], [place] [address]Dr. Madelynlorri Leal Basophils/100 WBC (Bld) 0.4 % Normal 0.2-2.0 [facility] Comment on above: Performed By: #### C BC ####[facility] Pgdslddbbb527[address] [place], [place] [address]Dr. Farhat Leal EO # 0.2 103/ul Normal 0.0-0.7 [facility] Comment on above: Performed By: #### C BC ####[facility] Ljekeoxjtn097[address] [place], [place] [address]Dr. Farhat Leal Eosinophils/100 WBC (Bld) 3.0 % Normal 0.9-7.0 [facility] Comment on above: Performed By: #### C BC ####[facility] Aancicrtjc634[address] [place], [place] [address]Dr. Fahrat Leal Erythrocyte distribution width (RBC) [Ratio] 15.7 % Critically high 11.0-15.0 [facility] Comment on above: Performed By: #### C BC ####[facility] Ujncvuhcxy6009 [place] [address]Dr. Farhat Leal Hematocrit (Bld) [Volume fraction] 36.8 % Critically low 42.0-54.0 [facility] Comment on above: Performed By: #### C BC ####[facility] Epxgydzaby4183 [place] [address]Dr. Farhat Elvis Hemoglobin (Bld) [Mass/Vol] 12.4 g/dL Critically low 14.0-18.0 [facility] Comment on above: Performed By: #### C BC ####[facility] Ipywuxkygf5559 [place] [address]Dr. Farhat Leal IG # 0.01 10e3/ul Normal 0.00-0.03 [facility] Comment on above: Performed By: #### C BC ####[facility] Ryfnpsrvxm240[address] [place], [place] [address]Dr. Farhat Leal IG % 0.1 % Normal 0.0-0.5 [facility] Comment on above: Performed By: #### C BC ####[facility] Lrbujyuzpk085[address] [place], [place] [address]Dr. Madelynlorri Leal LYMPH # 2.4 103/ul Normal 1.2-3.8 [facility] Comment on above: Performed By: #### C BC ####[facility] Mcdlqbjyqw812[address] [place], [place] [address]Dr. Farhat Leal Lymphocytes/100 WBC (Bld) 35.6 % Normal 20.5-60.0 [facility] Comment on above: Performed By: #### C BC ####[facility] Gamhliebhu0416[address] [place], [place] [address]Dr. Madelynlorri Leal MANUAL DIFF REQ NO Normal [facility] Comment on above: Performed By: #### C BC ####[facility] Wtsqlppfdk568[address] [place], [place] [address]Dr. Farhat Leal MCH (RBC) [Entitic mass] 30.1 pg Normal 25.9-34.0 [facility] Comment on above: Performed By: #### C BC ####[facility] Lrajdrvnve2241 [place] [phone]. Farhat Leal MCHC (RBC) [Mass/Vol] 33.7 g/dL Normal 29.9-35.2 [facility] Comment on above: Performed By: #### C BC ####[facility] Ojtegzowui8505 [place] [phone]. Farhat Leal MCV (RBC) [Entitic vol] 89.3 fL Normal 80.0-94.0 [facility] Comment on above: Performed By: #### C BC ####[facility] Yrtjndvxrd3636 [place] [id number]. Farhat Leal MONO # 0.7 103/ul Normal 0.3-0.8 [facility] Comment on above: Performed By: #### C BC ####[facility] Dsxdisddjk4260[address] [place], [place] [address]Dr. Madelynlorri Leal Monocytes/100 WBC (Bld) 10.8 % Normal 1.7-12.0 [facility] Comment on above: Performed By: #### C BC ####[facility] Wjkvncywzb35[address] [place], [place] [address]Dr. Farhat Leal NEUT # 3.4 103/ul Normal 1.4-6.5 [facility] Comment on above: Performed By: #### C BC ####[facility] Pyzmnlkfrx04[address] [place], [place] [address]Dr. Farhat Leal Neutrophils/100 WBC (Bld) 50.1 % Normal 43.0-75.0 [facility] Comment on above: Performed By: #### C BC ####[facility] Bdfserzarb3760 [place] [phone]. Farhat Leal Platelet mean volume (Bld) [Entitic vol] 10.2 fL Normal 9.5-13.5 [facility] Comment on above: Performed By: #### C BC ####[facility] Vekiudyvnr[address] [place], [place] [address]Dr. Farhat Elvis PLT 190 103/ul Normal 150-450 [facility] Comment on above: Performed By: #### C BC ####[facility] Iyscpklmzv9476 [place] [address]Dr. Farhat Leal RBC 4.12 106/ul Critically low 4.70-6.10 [facility] Comment on above: Performed By: #### C BC ####[facility] Fzjfwohunt1124 [place] [address]Dr. Farhat Leal WBC 6.8 103/ul Normal 4.0-11.0 [facility] Comment on above: Performed By: #### C BC ####[facility] Uphwnfnrid6130 [place] [address]Dr. Farhat Leal PROF 14(COMP METB)on 023 Albumin [Mass/Vol] 2.8 g/dL Critically low 3.4-5.0 [facility] Comment on above: Performed By: #### C MP ####[facility] Tydhqjszif414[address] [place], [place] [address]Dr. Farhat Leal Albumin/Globulin [Mass ratio] 0.9 {ratio} Normal [facility] Comment on above: Performed By: #### C MP ####[facility] Rvtnxjcvjz51[address] [place], [place] [address]Dr. Farhat Leal ALP [Catalytic activity/Vol] 66 U/L Normal 46-116 [facility] Comment on above: Performed By: #### C MP ####[facility] Mkharwxwsd7112[address] [place], [place] [address]Dr. Farhat Leal ALT [Catalytic activity/Vol] 15 U/L Critically low 16-63 [facility] Comment on above: Performed By: #### C MP ####[facility] Caevedyxel822[address] [place], [place] [address]Dr. Farhat Leal Anion gap [Moles/Vol] 11.1 mmol/L Normal [facility] Comment on above: Performed By: #### C MP ####[facility] Vshdkxayjz934193 [address] [place], [place] [address]Dr. Farhat Leal AST [Catalytic activity/Vol] 14 U/L Critically low 15-37 [facility] Comment on above: Performed By: #### C MP ####[facility] Bauadhqkya2353 [place] [address]Dr. Farhat Leal Bilirubin [Mass/Vol] 0.8 mg/dL Normal 0.2-1.0 [facility] Comment on above: Performed By: #### C MP ####[facility] Tschxkkxft676[address] [place], [place] [address]Dr. Farhat Leal Calcium [Mass/Vol] 8.9 mg/dL Normal 8.5-10.1 [facility] Comment on above: Performed By: #### C MP ####[facility] Kbpzjiyppt775[address] [place], [place] [address]Dr. Farhat Leal Chloride [Moles/Vol] 101 mmol/L Normal 98-107 [facility] Comment on above: Performed By: #### C MP ####[facility] Pqrmhuzmpt3812[address] [place], [place] [address]Dr. Farhat Elvis CO2 [Moles/Vol] 28.2 mmol/L Normal 21.0-32.0 The [facility] Comment on above: Performed By: #### C MP ####[facility] Yxysrqjhnf3635[address] [place], [place] [address]Dr. Farhat Elvis Creatinine [Mass/Vol] 1.23 mg/dL Normal 0.70-1.30 [facility] Comment on above: Performed By: #### C MP ####[facility] Oxjhowzlcc583[address] [place], [place] [address]Dr. Madelynlorri Elvis EGFR-AF [place] >60 Normal >=60 The [facility] Comment on above: Performed By: #### C MP ####[facility] Lpjeuhkayr554[address] [place], [place] [address]Dr. Madelynlorri Elvis EGFR-NON AF [place] 57 mL/min/1.73m2 Critically low >=60 [facility] Comment on above: Performed By: #### C MP ####[facility] Bckqqxvknd913[address] [place], [place] [address]Dr. Farhat Leal Globulin (S) [Mass/Vol] 3.2 g/dL Normal [facility] Comment on above: Performed By: #### C MP ####[facility] Elujdqjmuv894[address] [place], [place] [address]Dr. Farhat Elvis Glucose [Mass/Vol] 333 mg/dL Critically high 74-106 T [facility] Comment on above: Performed By: #### C MP ####[facility] Hvmjslpkll7002 [place] [address]Dr. Farhat Elvis Potassium [Moles/Vol] 4.3 mmol/L Normal 3.5-5.1 [facility] Comment on above: Performed By: #### C MP ####[facility] Txugsaoqbv8310[address] [place], [place] [address]Dr. Farhat Leal Protein [Mass/Vol] 6.0 g/dL Critically low 6.4-8.2 [facility] Comment on above: Performed By: #### C MP ####[facility] Wptdfspise310[address] [place], [place] [address]Dr. Farhat Leal Sodium [Moles/Vol] 136 mmol/L Normal 136-145 [facility] Comment on above: Performed By: #### C MP ####[facility] Araajyijzr3977[address] [place], [place] [address]Dr. Farhat Leal Urea nitrogen [Mass/Vol] 58.0 mg/dL Critically high 7.0-18.0 [facility] Comment on above: Performed By: #### C MP ####[facility] Kusxtxudbu206[address] [place], [place] [address]Dr. Farhat Leal Urea nitrogen/Creatinine [Mass ratio] 47.2 mg/mg Normal [facility] Comment on above: Performed By: #### C MP ####[facility] Thaxiqmlzc539[address] [place], [place] [address]Dr. Farhat Leal PROTIMEon 05-13-2022 INR Coag (PPP) [Relative time] 3.51 {INR} Normal [facility] Comment on above: Performed By: #### P T ####[facility] Bfrhbpqnzz5435[address] [place], [place] [address]Dr. Farhat Leal INR GUIDELINES SEE BELOW Normal [facility] Comment on above: Result Comment: MALINA RED INR: 2.0 - 3.0 CONDITIONS NOT LISTED BELOW 2.5 - 3.5 FOR PROSTHETIC HEART VALVE REPLACEMENT 2.5 - 3.5 RECURRENT THROMBOSIS Performed By: #### P T ####[facility] Diueduhxwt3446 [place] [address]DrSkylar Leal PT Coag (PPP) [Time] 34.7 s Critically high 9.0-11.6 [facility] Comment on above: Performed By: #### P T ####[facility] Hylxyvzhwa9730[address] [place], [place] [address]DrSkylar Leal FK506 (TACROLIMUS) WHOLE BLO ODon 05-11-2022 Tacrolimus (FK506), Blood 14.4 ng/mL Normal 2.0-20.0 [facility] Comment on above: Result Comment: Trou gh (immediately following transplant) 15.0 . Trough (steady state, 2 weeks or more after transplant): 3.0 - 8.0 . Performed by LC-MS/MS technology. Performed By: #### F K506T ####[facility] Xrzrpyemhd9[address] [place], [place] [address]DrSkylar Leal CBC AUTO DIFFon 05-08-2022 BASO # 0.0 103/ul Normal 0.0-0.1 [facility] Comment on above: Performed By: #### C BC ####[facility] Btogoavpqh575[address] [place], [place] [address]DrSkylar Leal Basophils/100 WBC (Bld) 0.5 % Normal 0.2-2.0 [facility] Comment on above: Performed By: #### C BC ####[facility] Ywxivklljh813[address] [place], [place] [address]DrSkylar Leal EO # 0.2 103/ul Normal 0.0-0.7 [facility] Comment on above: Performed By: #### C BC ####[facility] Jwedexggnm748[address] [place], [place] [address]DrSkylar Leal Eosinophils/100 WBC (Bld) 2.9 % Normal 0.9-7.0 [facility] Comment on above: Performed By: #### C BC ####[facility] Sbpuolniiz8550[address] [place], [place] [address]DrSkylar Leal Erythrocyte distribution width (RBC) [Ratio] 16.0 % Critically high 11.0-15.0 [facility] Comment on above: Performed By: #### C BC ####[facility] Bbwamqhxpr4150 [place] [address]DrSkylar Leal Hematocrit (Bld) [Volume fraction] 35.7 % Critically low 42.0-54.0 [facility] Comment on above: Performed By: #### C BC ####[facility] Dqnbhnqahp[address] [place], [place] [address]DrSkylar Leal Hemoglobin (Bld) [Mass/Vol] 11.9 g/dL Critically low 14.0-18.0 [facility] Comment on above: Performed By: #### C BC ####[facility] Cuwaclfbva[address] [place], [place] [address]DrSkylar Leal IG # 0.03 10e3/ul Normal 0.00-0.03 [facility] Comment on above: Performed By: #### C BC ####[facility] Teqejubsri680[address] [place], [place] [address]DrSkylar Leal IG % 0.5 % Normal 0.0-0.5 [facility] Comment on above: Performed By: #### C BC ####[facility] Kjqpqmqsfb[address] [place], [place] [address]DrSkylar Leal LYMPH # 2.4 103/ul Normal 1.2-3.8 [facility] Comment on above: Performed By: #### C BC ####[facility] Djsowequqp839[address] [place], [place] [address]DrSkylar Leal Lymphocytes/100 WBC (Bld) 37.8 % Normal 20.5-60.0 [facility] Comment on above: Performed By: #### C BC ####[facility] Afnyshjrjq01[address] [place], [place] [address]DrSkylar Leal MANUAL DIFF REQ NO Normal [facility] Comment on above: Performed By: #### C BC ####[facility] Tlxldoegan7499[address] [place], [place] [address]DrSkylar Leal MCH (RBC) [Entitic mass] 30.4 pg Normal 25.9-34.0 [facility] Comment on above: Performed By: #### C BC ####[facility] Cgtgruklou8654 [place] [address]Dr. Farhat Leal MCHC (RBC) [Mass/Vol] 33.3 g/dL Normal 29.9-35.2 [facility] Comment on above: Performed By: #### C BC ####[facility] Nfvywieryr[address] [place], [place] [address]DrSkylar Leal MCV (RBC) [Entitic vol] 91.1 fL Normal 80.0-94.0 [facility] Comment on above: Performed By: #### C BC ####[facility] Yrpepfoygc8833[address] [place], [place] [address]DrSkylar Leal MONO # 0.7 103/ul Normal 0.3-0.8 [facility] Comment on above: Performed By: #### C BC ####[facility] Bnctqqkiac04[address] [place], [place] [address]Dr. Farhat Leal Monocytes/100 WBC (Bld) 11.1 % Normal 1.7-12.0 [facility] Comment on above: Performed By: #### C BC ####[facility] Uwfloxjkxz06[address] [place], [place] [address]DrSkylar Leal NEUT # 2.9 103/ul Normal 1.4-6.5 [facility] Comment on above: Performed By: #### C BC ####[facility] Wzwstvxglp[address]01[address] [place], [place] [address]Dr. Farhat Leal Neutrophils/100 WBC (Bld) 47.2 % Normal 43.0-75.0 [facility] Comment on above: Performed By: #### C BC ####[facility] [address] [place], [place] [address]DrSkylar Leal Platelet mean volume (Bld) [Entitic vol] 11.0 fL Normal 9.5-13.5 [facility] Comment on above: Performed By: #### C BC ####[facility] [address] [place], [place] [address]Dr. Farhat Leal PLT 191 103/ul Normal 150-450 [facility] Comment on above: Performed By: #### C BC ####[facility] [id number] [place] [id number]. Farhat Leal RBC 3.92 106/ul Critically low 4.70-6.10 [facility] Comment on above: Performed By: #### C BC ####[facility] Gbrsvinmql[address] [place] [id number]. Farhat Leal WBC 6.2 103/ul Normal 4.0-11.0 [facility] Comment on above: Performed By: #### C BC ####[facility] Xbabagpfyb8155 [place] [address]Dr. Farhat Leal MAGNESIUMon 05-08-2022 Magnesium [Mass/Vol] 1.9 mg/dL Normal 1.8-2.4 [facility] Comment on above: Performed By: #### P HOS, MG ####[facility] Kmskvfgaqk6365 [place] [address]Dr. Farhat Leal PHOSPHORUSon 05-08-2022 Phosphate [Mass/Vol] 4.5 mg/dL Normal 2.6-4.7 [facility] Comment on above: Performed By: #### P HOS, MG ####[facility] Yqtttyzppq[address] [place], [place] [address]Dr. Farhat Leal PROF 14(COMP METB)on 023 Albumin [Mass/Vol] 2.9 g/dL Critically low 3.4-5.0 [facility] Comment on above: Performed By: #### C MP ####[facility] Rzncabnjaa5969 [place] [address]Dr. Farhat Leal Albumin/Globulin [Mass ratio] 0.9 {ratio} Normal [facility] Comment on above: Performed By: #### C MP ####[facility] Trvpdcfzfu5773 [place] [address]Dr. Farhat Leal ALP [Catalytic activity/Vol] 70 U/L Normal 46-116 [facility] Comment on above: Performed By: #### C MP ####[facility] Vemmmlqocr5671 [place] [id number]. Farhat Leal ALT [Catalytic activity/Vol] 13 U/L Critically low 16-63 [facility] Comment on above: Performed By: #### C MP ####[facility] Idrhfkcktr4257 [place] [address]Dr. Farhat Leal Anion gap [Moles/Vol] 14.6 mmol/L Normal [facility] Comment on above: Performed By: #### C MP ####[facility] Umbvpkxsbw1593 [place] [address]Dr. Farhat Leal AST [Catalytic activity/Vol] 17 U/L Normal 15-37 [facility] Comment on above: Performed By: #### C MP ####[facility] Ehrdydvvmi[address] [place], [place] [address]Dr. Farhat Leal Bilirubin [Mass/Vol] 0.8 mg/dL Normal 0.2-1.0 [facility] Comment on above: Performed By: #### C MP ####[facility] Htsyrntyec314[address] [place], [place] [address]Dr. Frahat Leal Calcium [Mass/Vol] 8.9 mg/dL Normal 8.5-10.1 [facility] Comment on above: Performed By: #### C MP ####[facility] Xwjnmuvxgs22[address] [place], [place] [address]Dr. Farhat Leal Chloride [Moles/Vol] 102 mmol/L Normal 98-107 [facility] Comment on above: Performed By: #### C MP ####[facility] Gchawutpkw9912 [place] [address]Dr. Farhat Leal CO2 [Moles/Vol] 22.9 mmol/L Normal 21.0-32.0 The [facility] Comment on above: Performed By: #### C MP ####[facility] Ewmudkoaqt[address] [place], [place] [address]Dr. Farhat Leal Creatinine [Mass/Vol] 1.20 mg/dL Normal 0.70-1.30 [facility] Comment on above: Performed By: #### C MP ####[facility] Dfkswnbgqz1112 [place] [phone]. Farhat Leal EGFR-AF [place] >60 Normal >=[address] [facility] Comment on above: Performed By: #### C MP ####[facility] Aidiaqjjff0591 [place] [address]Dr. Farhat Leal EGFR-NON AF [place] 59 mL/min/1.73m2 Critically low >=60 [facility] Comment on above: Performed By: #### C MP ####[facility] Sdljlvuwdz2457 [place] [address]Dr. Farhat Leal Globulin (S) [Mass/Vol] 3.1 g/dL Normal [facility] Comment on above: Performed By: #### C MP ####[facility] Hlidyjgmzu559[address] [place], [place] [address]Dr. Farhat Leal Glucose [Mass/Vol] 447 mg/dL Critically high 74-106 T [facility] Comment on above: Performed By: #### C MP ####[facility] Khmpbbjkic1312[address] [place], [place] [address]Dr. Farhat Elvis Potassium [Moles/Vol] 4.5 mmol/L Normal 3.5-5.1 [facility] Comment on above: Performed By: #### C MP ####[facility] Umddwaulbj082[address] [place], [place] [address]Dr. Farhat Elvis Protein [Mass/Vol] 6.0 g/dL Critically low 6.4-8.2 [facility] Comment on above: Performed By: #### C MP ####[facility] Xpeskfgfrn3063 [place] [address]Dr. Farhat Leal Sodium [Moles/Vol] 135 mmol/L Critically low 136-145 [facility] Comment on above: Performed By: #### C MP ####[facility] Vxbwbnrznv0200[address] [place], [place] [address]Dr. Farhat Leal Urea nitrogen [Mass/Vol] 52.0 mg/dL Critically high 7.0-18.0 [facility] Comment on above: Performed By: #### C MP ####[facility] Mfjtnurhii5814[address] [place], [place] [address]DrSkylar Leal Urea nitrogen/Creatinine [Mass ratio] 43.3 mg/mg Normal [facility] Comment on above: Performed By: #### C MP ####[facility] Wyolgbmkos4611 [place] [address]DrSkylar Joshilorri Elvis PROTIMEon 05-06-2022 INR Coag (PPP) [Relative time] 2.25 {INR} Normal [facility] Comment on above: Performed By: #### P T ####[facility] Wttlovhkbw7989 [place] [address]DrSkylar Leal INR GUIDELINES SEE BELOW Normal [facility] Comment on above: Result Comment: MALINA RED INR: 2.0 - 3.0 CONDITIONS NOT LISTED BELOW 2.5 - 3.5 FOR PROSTHETIC HEART VALVE REPLACEMENT 2.5 - 3.5 RECURRENT THROMBOSIS Performed By: #### P T ####[facility] Pvidnnhjyx776[address] [place], [place] [address]DrSkylar Leal PT Coag (PPP) [Time] 22.8 s Critically high 9.0-11.6 [facility] Comment on above: Performed By: #### P T ####[facility] Bxiikakbaj6048[address] [place], [place] [address]DrSkylar Leal FK506 (TACROLIMUS) WHOLE BLO ODon 05-04-2022 Tacrolimus (FK506), Blood 10.4 ng/mL Normal 2.0-20.0 [facility] Comment on above: Result Comment: Trou gh (immediately following transplant) 15.0 . Trough (steady state, 2 weeks or more after transplant): 3.0 - 8.0 . Performed by LC-MS/MS technology. Performed By: #### F K506T ####[facility] Fviarwxxvt5077 [place] [address]DrSkylar Leal CBC AUTO DIFFon 05-01-2022 BASO # 0.1 103/ul Normal 0.0-0.1 [facility] Comment on above: Performed By: #### C BC ####[facility] Lvabnfoius9026[address] [place], [place] [address]DrSkylar Leal Basophils/100 WBC (Bld) 0.7 % Normal 0.2-2.0 [facility] Comment on above: Performed By: #### C BC ####[facility] Xbsmdoowln5064[address] [place], [place] [address]Dr. Farhat Leal EO # 0.2 103/ul Normal 0.0-0.7 [facility] Comment on above: Performed By: #### C BC ####[facility] Rxottgfxqe974093 [address] [place], [place] [address]Dr. Farhat Leal Eosinophils/100 WBC (Bld) 3.2 % Normal 0.9-7.0 [facility] Comment on above: Performed By: #### C BC ####[facility] Ifewtkjavm474[address] [place], [place] [address]Dr. Farhat Leal Erythrocyte distribution width (RBC) [Ratio] 16.4 % Critically high 11.0-15.0 [facility] Comment on above: Performed By: #### C BC ####[facility] Dwdckipmyp906[address] [place], [place] [address]Dr. Farhat Leal Hematocrit (Bld) [Volume fraction] 35.1 % Critically low 42.0-54.0 [facility] Comment on above: Performed By: #### C BC ####[facility] Gofusruoay69029[address] [place], [place] [address]Dr. Farhat Leal Hemoglobin (Bld) [Mass/Vol] 11.6 g/dL Critically low 14.0-18.0 [facility] Comment on above: Performed By: #### C BC ####[facility] Uenzfrjqzc068[address] [place], [place] [address]Dr. Farhat Leal IG # 0.03 10e3/ul Normal 0.00-0.03 [facility] Comment on above: Performed By: #### C BC ####[facility] Itwqwwegnd713[address] [place], [place] [address]Dr. Farhat Leal IG % 0.4 % Normal 0.0-0.5 [facility] Comment on above: Performed By: #### C BC ####[facility] Xqapncazpz2545[address] [place], [place] [address]Dr. Farhat Leal LYMPH # 2.4 103/ul Normal 1.2-3.8 [facility] Comment on above: Performed By: #### C BC ####[facility] Escuasvuef8934 [place] [address]Dr. Farhat Leal Lymphocytes/100 WBC (Bld) 35.1 % Normal 20.5-60.0 [facility] Comment on above: Performed By: #### C BC ####[facility] Jvsebnhubn5291 [place] [address]DrSkylar Leal MANUAL DIFF REQ NO Normal [facility] Comment on above: Performed By: #### C BC ####[facility] Qxzkhvtpag3583 [place] [address]Dr. Farhat Leal MCH (RBC) [Entitic mass] 29.4 pg Normal 25.9-34.0 [facility] Comment on above: Performed By: #### C BC ####[facility] Xizmfytzkp044[address] [place], [place] [address]Dr. Farhat Leal MCHC (RBC) [Mass/Vol] 33.0 g/dL Normal 29.9-35.2 [facility] Comment on above: Performed By: #### C BC ####[facility] Yxtfpxztgt366[address] [place], [place] [address]DrSkylar Leal MCV (RBC) [Entitic vol] 88.9 fL Normal 80.0-94.0 [facility] Comment on above: Performed By: #### C BC ####[facility] Wgtfnxyjpl403[address] [place], [place] [address]Dr. Farhat Leal MONO # 0.7 103/ul Normal 0.3-0.8 [facility] Comment on above: Performed By: #### C BC ####[facility] Mhixzlwlkv908[address] [place], [place] [address]Dr. Farhat Leal Monocytes/100 WBC (Bld) 9.6 % Normal 1.7-12.0 [facility] Comment on above: Performed By: #### C BC ####[facility] Yavivefikq0740[address] [place], [place] [address]Dr. Farhat Leal NEUT # 3.5 103/ul Normal 1.4-6.5 [facility] Comment on above: Performed By: #### C BC ####[facility] Blqczklstw6065 [place] [address]Dr. Farhat Leal Neutrophils/100 WBC (Bld) 51.0 % Normal 43.0-75.0 [facility] Comment on above: Performed By: #### C BC ####[facility] Bthnkbyhgw9098 [place] [address]Dr. Farhat Leal Platelet mean volume (Bld) [Entitic vol] 10.3 fL Normal 9.5-13.5 [facility] Comment on above: Performed By: #### C BC ####[facility] Oihpmwgoxv299[address] [place], [place] [address]Dr. Farhat Leal PLT 184 103/ul Normal 150-450 [facility] Comment on above: Performed By: #### C BC ####[facility] Onrpkaoqhu4147 [place] [address]Dr. Farhat Leal RBC 3.95 106/ul Critically low 4.70-6.10 [facility] Comment on above: Performed By: #### C BC ####[facility] Kppmrtaipo69999[address] [place], [place] [address]Dr. Farhat Leal WBC 7.0 103/ul Normal 4.0-11.0 [facility] Comment on above: Performed By: #### C BC ####[facility] Quupzxhxbi556[address] [place], [place] [address]DrSkylar Leal PROF 14(COMP METB)on 023 Albumin [Mass/Vol] 2.6 g/dL Critically low 3.4-5.0 [facility] Comment on above: Performed By: #### C MP ####[facility] Flkwmdzdjc4914[address] [place], [place] [address]DrSkylar Leal Albumin/Globulin [Mass ratio] 0.9 {ratio} Normal [facility] Comment on above: Performed By: #### C MP ####[facility] Mtkxdcjuyw0128 [place] [address]DrSkylar Leal ALP [Catalytic activity/Vol] 53 U/L Normal 46-116 [facility] Comment on above: Performed By: #### C MP ####[facility] Ekeglimque6627 [place] [address]Dr. Farhat Leal ALT [Catalytic activity/Vol] 17 U/L Normal 16-63 [facility] Comment on above: Performed By: #### C MP ####[facility] Gcvvuenjkz8313[address] [place], [place] [address]Dr. Farhat Leal Anion gap [Moles/Vol] 10.0 mmol/L Normal [facility] Comment on above: Performed By: #### C MP ####[facility] Cfixdumufv888[address] [place], [place] [address]Dr. Farhat Leal AST [Catalytic activity/Vol] 19 U/L Normal 15-37 [facility] Comment on above: Performed By: #### C MP ####[facility] Ypcifodpdz058[address] [place], [place] [address]Dr. Farhat Leal Bilirubin [Mass/Vol] 0.5 mg/dL Normal 0.2-1.0 [facility] Comment on above: Performed By: #### C MP ####[facility] Rsajqysznv590[address] [place], [place] [address]Dr. Farhat Leal Calcium [Mass/Vol] 8.4 mg/dL Critically low 8.5-10.1 [facility] Comment on above: Performed By: #### C MP ####[facility] Mqzngqvbje913[address] [place], [place] [address]Dr. Farhat Leal Chloride [Moles/Vol] 108 mmol/L Critically high 98-107 [facility] Comment on above: Performed By: #### C MP ####[facility] Mcqvmqdpqk210[address] [place], [place] [address]Dr. Farhat Leal CO2 [Moles/Vol] 26.9 mmol/L Normal 21.0-32.[address] [facility] Comment on above: Performed By: #### C MP ####[facility] Jrqkoekfez704893 [address] [place], [place] [address]Dr. Farhat Leal Creatinine [Mass/Vol] 1.20 mg/dL Normal 0.70-1.30 [facility] Comment on above: Performed By: #### C MP ####[facility] Vmynrsvrgc4376 [place] [id number]. Farhat Leal EGFR-AF [place] >60 Normal >=[address] [facility] Comment on above: Performed By: #### C MP ####[facility] Cnsgsyyhhu0181 [place] [id number]. Farhat Elvis EGFR-NON AF [place] 59 mL/min/1.73m2 Critically low >=60 [facility] Comment on above: Performed By: #### C MP ####[facility] Kbxikjoumm8838 [place] [id number]. Farhat Elvis Globulin (S) [Mass/Vol] 3.0 g/dL Normal [facility] Comment on above: Performed By: #### C MP ####[facility] Ezgodicfpb6820 [place] [address]Dr. Farhat Elvis Glucose [Mass/Vol] 213 mg/dL Critically high 74-106 [facility] Comment on above: Performed By: #### C MP ####[facility] Uknkgdbzie6460 [place] [id number]. Farhat Elvis Potassium [Moles/Vol] 3.9 mmol/L Normal 3.5-5.1 [facility] Comment on above: Performed By: #### C MP ####[facility] Durbensaqp2116 [place] [id number]. Farhat Elvis Protein [Mass/Vol] 5.6 g/dL Critically low 6.4-8.2 [facility] Comment on above: Performed By: #### C MP ####[facility] Uohufcbgeo2566 [place] [id number]. Farhat Leal Sodium [Moles/Vol] 141 mmol/L Normal 136-145 [facility] Comment on above: Performed By: #### C MP ####[facility] Vfuyppkdmi8167 [place] [id number]. Farhat Elvis Urea nitrogen [Mass/Vol] 61.0 mg/dL Critically high 7.0-18.0 [facility] Comment on above: Performed By: #### C MP ####[facility] Aadmbaxxxm6194 [place] [address]Dr. Farhat Leal Urea nitrogen/Creatinine [Mass ratio] 50.8 mg/mg Normal [facility] Comment on above: Performed By: #### C MP ####[facility] Ljzznrdiuq2099[address] [place], [place] [address]Dr. Farhat Leal FK506 (TACROLIMUS) WHOLE BLO ODon 04-27-2022 Tacrolimus (FK506), Blood 16.5 ng/mL Normal 2.0-20.0 [facility] Comment on above: Result Comment: Trou gh (immediately following transplant) 15.0 . Trough (steady state, 2 weeks or more after transplant): 3.0 - 8.0 . Performed by LC-MS/MS technology. Performed By: #### F K506T ####[facility] Kvxdzcrvvy535[address] [place], [place] [address]DrSkylar Farhat Elvis CBC AUTO DIFFon 04-24-2022 BASO # 0.0 103/ul Normal 0.0-0.1 [facility] Comment on above: Performed By: #### C BC ####[facility] Sldmtkjkkl830[address] [place], [place] [address]Dr. Madelynlorri Leal Basophils/100 WBC (Bld) 0.5 % Normal 0.2-2.0 [facility] Comment on above: Performed By: #### C BC ####[facility] Dqlvphmyui576[address] [place], [place] [address]DrSkylar Farhat Elvis EO # 0.2 103/ul Normal 0.0-0.7 [facility] Comment on above: Performed By: #### C BC ####[facility] Hkpjxzxidm659[address] [place], [place] [address]Dr. Farhat Leal Eosinophils/100 WBC (Bld) 3.1 % Normal 0.9-7.0 [facility] Comment on above: Performed By: #### C BC ####[facility] Megqqexxda744693 [address] [place], [place] [address]Dr. Farhat Leal Erythrocyte distribution width (RBC) [Ratio] 16.3 % Critically high 11.0-15.0 [facility] Comment on above: Performed By: #### C BC ####[facility] Jukvwswjzt8197 [place] [address]DrSkylar Leal Hematocrit (Bld) [Volume fraction] 34.0 % Critically low 42.0-54.0 [facility] Comment on above: Performed By: #### C BC ####[facility] Elwwfosbjy0998 [place] [address]DrSkylar Leal Hemoglobin (Bld) [Mass/Vol] 11.6 g/dL Critically low 14.0-18.0 [facility] Comment on above: Performed By: #### C BC ####[facility] Zmfqaogrwq3377[address] [place], [place] [address]DrSkylar Leal IG # 0.02 10e3/ul Normal 0.00-0.03 [facility] Comment on above: Performed By: #### C BC ####[facility] Ikazwtmifq0601[address] [place], [place] [address]DrSkylar Leal IG % 0.4 % Normal 0.0-0.5 [facility] Comment on above: Performed By: #### C BC ####[facility] Hwlmyklsnq232[address] [place], [place] [address]DrSkylar Leal LYMPH # 2.2 103/ul Normal 1.2-3.8 [facility] Comment on above: Performed By: #### C BC ####[facility] Kltaglpovy839[address] [place], [place] [address]DrSkylar Leal Lymphocytes/100 WBC (Bld) 38.8 % Normal 20.5-60.0 [facility] Comment on above: Performed By: #### C BC ####[facility] Dawskosjlb1840[address] [place], [place] [address]DrSkylar Leal MANUAL DIFF REQ NO Normal [facility] Comment on above: Performed By: #### C BC ####[facility] Wquonwqjjg2820 [place] [address]DrSkylar Leal MCH (RBC) [Entitic mass] 30.1 pg Normal 25.9-34.0 [facility] Comment on above: Performed By: #### C BC ####[facility] Kzxhjcixar7738 [place] [address]Dr. Farhat Leal MCHC (RBC) [Mass/Vol] 34.1 g/dL Normal 29.9-35.2 [facility] Comment on above: Performed By: #### C BC ####[facility] Wsnkcnawek6646 [place] [address]DrSkylar Leal MCV (RBC) [Entitic vol] 88.1 fL Normal 80.0-94.0 [facility] Comment on above: Performed By: #### C BC ####[facility] Xtsozihyln216[address] [place], [place] [address]DrSkylar Leal MONO # 0.6 103/ul Normal 0.3-0.8 [facility] Comment on above: Performed By: #### C BC ####[facility] Meakznvbcq436[address] [place], [place] [address]Dr. Farhat Leal Monocytes/100 WBC (Bld) 10.8 % Normal 1.7-12.0 [facility] Comment on above: Performed By: #### C BC ####[facility] Hxcqxkfzpx4601[address] [place], [place] [address]DrSkylar Leal NEUT # 2.6 103/ul Normal 1.4-6.5 [facility] Comment on above: Performed By: #### C BC ####[facility] Kvmuvqrgps8418[address] [place], [place] [address]Dr. Farhat Leal Neutrophils/100 WBC (Bld) 46.4 % Normal 43.0-75.0 [facility] Comment on above: Performed By: #### C BC ####[facility] Zhjotiladn469[address] [place], [place] [address]DrSkylar Leal Platelet mean volume (Bld) [Entitic vol] 10.9 fL Normal 9.5-13.5 [facility] Comment on above: Performed By: #### C BC ####[facility] Fhccrhfoqv16[address] [place], [place] [address]Dr. Farhat Leal PLT 159 103/ul Normal 150-450 [facility] Comment on above: Performed By: #### C BC ####[facility] Smfidrwolp6183 [place] [address]Dr. Farhat Leal RBC 3.86 106/ul Critically low 4.70-6.10 [facility] Comment on above: Performed By: #### C BC ####[facility] Fxhwpxatei7735 [place] [address]Dr. Farhat Leal WBC 5.6 103/ul Normal 4.0-11.0 [facility] Comment on above: Performed By: #### C BC ####[facility] Pqqgmfflwg2688 [place] [address]Dr. Farhat Leal PROTIMEon 04-24-2022 INR Coag (PPP) [Relative time] 3.23 {INR} Normal [facility] Comment on above: Performed By: #### P T ####[facility] Qjvxxiylbi1818 [place] [address]Dr. Farhat Leal INR GUIDELINES SEE BELOW Normal [facility] Comment on above: Result Comment: MALINA RED INR: 2.0 - 3.0 CONDITIONS NOT LISTED BELOW 2.5 - 3.5 FOR PROSTHETIC HEART VALVE REPLACEMENT 2.5 - 3.5 RECURRENT THROMBOSIS Performed By: #### P T ####[facility] Xllnpptyoy4873 [place] [address]Dr. Farhat Leal PT Coag (PPP) [Time] 32.0 s Critically high 9.0-11.6 [facility] Comment on above: Performed By: #### P T ####[facility] Ciwejuspcr3798 [place] [address]Dr. Farhat Leal FK506 (TACROLIMUS) WHOLE BLO ODon 04-20-2022 Tacrolimus (FK506), Blood 13.9 ng/mL Normal 2.0-20.0 [facility] Comment on above: Result Comment: Trou gh (immediately following transplant) 15.0 . Trough (steady state, 2 weeks or more after transplant): 3.0 - 8.0 . Performed by LC-MS/MS technology. Performed By: #### F K506T ####[facility] Vjnlhebbvl0195 [place] [id number]. Farhat Leal CBC AUTO DIFFon 04-17-2022 BASO # 0.0 103/ul Normal 0.0-0.1 [facility] Comment on above: Performed By: #### C BC ####[facility] Gzriokhxbn670[address] [place], [place] [address]Dr. Madelynlorri Leal Basophils/100 WBC (Bld) 0.4 % Normal 0.2-2.0 [facility] Comment on above: Performed By: #### C BC ####[facility] Veuiinbaap6533[address] [place], [place] [address]Dr. Farhat Elvis EO # 0.2 103/ul Normal 0.0-0.7 [facility] Comment on above: Performed By: #### C BC ####[facility] Mrlksekiet2504[address] [place], [place] [address]Dr. Madelynlorri Leal Eosinophils/100 WBC (Bld) 2.8 % Normal 0.9-7.0 [facility] Comment on above: Performed By: #### C BC ####[facility] Vfyeuwvjtr9710[address] [place], [place] [address]Dr. Farhat Leal Erythrocyte distribution width (RBC) [Ratio] 16.1 % Critically high 11.0-15.0 [facility] Comment on above: Performed By: #### C BC ####[facility] Bobkvrklms0890[address] [place], [place] [address]Dr. Farhat Leal Hematocrit (Bld) [Volume fraction] 35.7 % Critically low 42.0-54.0 [facility] Comment on above: Performed By: #### C BC ####[facility] Cdqkbzekvy745[address] [place], [place] [address]Dr. Farhat Leal Hemoglobin (Bld) [Mass/Vol] 12.2 g/dL Critically low 14.0-18.0 [facility] Comment on above: Performed By: #### C BC ####[facility] Qufvpunmli[address] [place], [place] [address]Dr. Farhat Leal IG # 0.03 10e3/ul Normal 0.00-0.03 [facility] Comment on above: Performed By: #### C BC ####[facility] Elndptnwug3049 [place] [address]Dr. Madelynlorri Leal IG % 0.4 % Normal 0.0-0.5 [facility] Comment on above: Performed By: #### C BC ####[facility] Lsvmjghsno0843 [place] [address]Dr. Farhat Elvis LYMPH # 2.4 103/ul Normal 1.2-3.8 [facility] Comment on above: Performed By: #### C BC ####[facility] Zaenewmfqd2465[address] [place], [place] [address]Dr. Madelynlorri Leal Lymphocytes/100 WBC (Bld) 36.1 % Normal 20.5-60.0 [facility] Comment on above: Performed By: #### C BC ####[facility] Yyoaageicf055[address] [place], [place] [address]Dr. Farhat Leal MANUAL DIFF REQ NO Normal [facility] Comment on above: Performed By: #### C BC ####[facility] Crjkgjnyqz4792 [place] [address]Dr. Farhat Elvis MCH (RBC) [Entitic mass] 30.3 pg Normal 25.9-34.0 [facility] Comment on above: Performed By: #### C BC ####[facility] Ioxbrulwvx7850 [place] [address]Dr. Farhat Elvis MCHC (RBC) [Mass/Vol] 34.2 g/dL Normal 29.9-35.2 [facility] Comment on above: Performed By: #### C BC ####[facility] [id number] [place], [place] [address]Dr. Farhat Elvis MCV (RBC) [Entitic vol] 88.6 fL Normal 80.0-94.0 [facility] Comment on above: Performed By: #### C BC ####[facility] [id number] [place], [place] [address]Dr. Farhat Leal MONO # 0.7 103/ul Normal 0.3-0.8 [facility] Comment on above: Performed By: #### C BC ####[facility] [id number] [place] [id number]. Farhat Leal Monocytes/100 WBC (Bld) 10.1 % Normal 1.7-12.0 [facility] Comment on above: Performed By: #### C BC ####[facility] [address]bkod[address] [place] [id number]. Farhat Leal NEUT # 3.4 103/ul Normal 1.4-6.5 [facility] Comment on above: Performed By: #### C BC ####[facility] Esfjnqqmlr57[address] [place] [id number]. Farhat Leal Neutrophils/100 WBC (Bld) 50.2 % Normal 43.0-75.0 [facility] Comment on above: Performed By: #### C BC ####[facility] Bmltfvwrlp6476 [place] [id number]. Madelynlorri Elvis Platelet mean volume (Bld) [Entitic vol] 11.8 fL Normal 9.5-13.5 [facility] Comment on above: Performed By: #### C BC ####[facility] Wglsjartow78[address] [place] [id number]. Farhat Elvis PLT 193 103/ul Normal 150-450 [facility] Comment on above: Performed By: #### C BC ####[facility] Vwnezxqbbz0401 [place] [id number]. Madelynlorri Leal RBC 4.03 106/ul Critically low 4.70-6.10 [facility] Comment on above: Performed By: #### C BC ####[facility] Rsufgjylar2107 [place] [id number]. Farhat Leal WBC 6.8 103/ul Normal 4.0-11.0 [facility] Comment on above: Performed By: #### C BC ####[facility] Dyvdxjlwoj13[address] [place] [address]Dr. Farhat Leal PROF 14(COMP METB)on 023 Albumin [Mass/Vol] 2.9 g/dL Critically low 3.4-5.0 [facility] Comment on above: Performed By: #### C MP ####[facility] Mhzpdwhbcf4509 [place] [address]Dr. Farhat Elvis Albumin/Globulin [Mass ratio] 0.9 {ratio} Normal [facility] Comment on above: Performed By: #### C MP ####[facility] Grjgibgjta5783 [place] [address]Dr. Farhat Leal ALP [Catalytic activity/Vol] 67 U/L Normal 46-116 [facility] Comment on above: Performed By: #### C MP ####[facility] Ekuoroubcv[address] [place], [place] [address]Dr. Farhat Leal ALT [Catalytic activity/Vol] 15 U/L Critically low 16-63 [facility] Comment on above: Performed By: #### C MP ####[facility] Fdltmipsxh[address] [place], [place] [address]Dr. Farhat Leal Anion gap [Moles/Vol] 10.8 mmol/L Normal [facility] Comment on above: Performed By: #### C MP ####[facility] Qstgwnxjku[address] [place], [place] [address]Dr. Farhat Leal AST [Catalytic activity/Vol] 23 U/L Normal 15-37 [facility] Comment on above: Performed By: #### C MP ####[facility] Zorarzuutm[address] [place], [place] [address]Dr. Farhat Leal Bilirubin [Mass/Vol] 0.6 mg/dL Normal 0.2-1.0 [facility] Comment on above: Performed By: #### C MP ####[facility] Idonccyzvj[address] [place], [place] [address]Dr. Farhat Leal Calcium [Mass/Vol] 8.7 mg/dL Normal 8.5-10.1 [facility] Comment on above: Performed By: #### C MP ####[facility] Kgsjtwifct[address] [place], [place] [address]Dr. Farhat Leal Chloride [Moles/Vol] 105 mmol/L Normal 98-107 [facility] Comment on above: Performed By: #### C MP ####[facility] Muqgtqspjc[address] [place] [id number]. Farhat Leal CO2 [Moles/Vol] 29.5 mmol/L Normal 21.0-32.[address] [facility] Comment on above: Performed By: #### C MP ####[facility] Ooqhlozriw7331 [place] [id number]. Farhat Leal Creatinine [Mass/Vol] 1.37 mg/dL Critically high 0.70-1.30 [facility] Comment on above: Performed By: #### C MP ####[facility] Kzbdogpxwq4183 [place] [id number]. Farhat Leal EGFR-AF [place] >60 Normal >=[address] [facility] Comment on above: Performed By: #### C MP ####[facility] Afivuywsyc88[address] [place] [address]Dr. Farhat Elvis EGFR-NON AF [place] 50 mL/min/1.73m2 Critically low >=60 [facility] Comment on above: Performed By: #### C MP ####[facility] Umftawbfxz0326 [place] [id number]. Farhat Leal Globulin (S) [Mass/Vol] 3.1 g/dL Normal [facility] Comment on above: Performed By: #### C MP ####[facility] Lznzfljlpo6379 [place] [address]Dr. Farhat Leal Glucose [Mass/Vol] 203 mg/dL Critically high 74-106 [facility] Comment on above: Performed By: #### C MP ####[facility] Lqigaoynfs1273 [place] [phone]. Farhat Leal Potassium [Moles/Vol] 4.3 mmol/L Normal 3.5-5.1 [facility] Comment on above: Performed By: #### C MP ####[facility] Wakerfrvul3187 [place] [address]Dr. Farhat Leal Protein [Mass/Vol] 6.0 g/dL Critically low 6.4-8.2 [facility] Comment on above: Performed By: #### C MP ####[facility] Ugcwfiiyom5988 [place] [phone]. Farhat Leal Sodium [Moles/Vol] 141 mmol/L Normal 136-145 [facility] Comment on above: Performed By: #### C MP ####[facility] Vmommisqff7712 [place] [phone]. Farhat Leal Urea nitrogen [Mass/Vol] 65.0 mg/dL Critically high 7.0-18.0 [facility] Comment on above: Performed By: #### C MP ####[facility] Mcvfwgjeuu8[address] [place] [address]Dr. Farhat Leal Urea nitrogen/Creatinine [Mass ratio] 47.4 mg/mg Normal [facility] Comment on above: Performed By: #### C MP ####[facility] Godhfslmyv4083 [place] [address]Dr. Farhat Leal PROTIMEon 04-15-2022 INR Coag (PPP) [Relative time] 3.88 {INR} Normal [facility] Comment on above: Performed By: #### P T ####[facility] Gfbiqmagbj88[address] [place] [address]Dr. Farhat Leal INR GUIDELINES SEE BELOW Normal [facility] Comment on above: Result Comment: MALINA RED INR: 2.0 - 3.0 CONDITIONS NOT LISTED BELOW 2.5 - 3.5 FOR PROSTHETIC HEART VALVE REPLACEMENT 2.5 - 3.5 RECURRENT THROMBOSIS Performed By: #### P T ####[facility] Ukspybxslb[address] [place], [place] [address]Dr. Farhat Leal PT Coag (PPP) [Time] 38.1 s Critically high 9.0-11.6 [facility] Comment on above: Performed By: #### P T ####[facility] Vkdxtvyndz[address] [place], [place] [address]Dr. Farhat Leal Glucose Glucometer (BldC) [M ass/Vol]Ordered By: Sadia Aguilar on 04-14-2022 Glucose [Mass/Vol] 162 mg/dL [facility] Comment on above: Random Glucose Refer ence Range is dependent on time and content of last meal. Glucose of more than 200 mg/dL in a nonstressed, ambulatory subject supports the diagnosis of Diabetes Mellitus. Glucose Poct Glucometerson 0 04-14-2022 Commemt1 Glu2: Cleaned Meter Normal [facility] Comment on above: Result Comment: PERF ORMED BY: [place] [address] PATHOLOGIST WEB DESIGN INSTRUCTOR JOSE F ELLIOTT M.D. Performed By: #### G LULS #### Point of Care testing , Glucose [Mass/Vol] 162 mg/dL Normal [facility] Comment on above: Result Comment: [place] Glucose Reference Range is dependent on time and content of last meal. Glucose of more than 200 mg/dL in a nonstressed, ambulatory subject supports the diagnosis of Diabetes Mellitus. Performed By: #### G LURICO #### Point of Care testing , No Panel InformationOrdered By: Sadia Aguilar on 04-14-2022 Bedside Glucose Comment Glu2: cleaned meter [facility] MAGNESIUMon 04-13-2022 Magnesium [Mass/Vol] 1.7 mg/dL Critically low 1.8-2.4 [facility] Comment on above: Performed By: #### M HENRI Manzo ####[facility] Iiutghlxlo06[address] [place] [address]Dr. Farhat Leal PHOSPHORUSon 04-13-2022 Phosphate [Mass/Vol] 4.8 mg/dL Critically high 2.6-4.7 [facility] Comment on above: Performed By: #### M HENRI Manzo ####[facility] Pmwbaylezy[address] [place] [address]Dr. Farhat Leal PROTIMEon 04-13-2022 INR Coag (PPP) [Relative time] 3.16 {INR} Normal [facility] Comment on above: Performed By: #### P T ####[facility] Nrektudfvd037[address] [place] [address]Dr. Farhat Leal INR GUIDELINES SEE BELOW Normal [facility] Comment on above: Result Comment: MALINA RED INR: 2.0 - 3.0 CONDITIONS NOT LISTED BELOW 2.5 - 3.5 FOR PROSTHETIC HEART VALVE REPLACEMENT 2.5 - 3.5 RECURRENT THROMBOSIS Performed By: #### P T ####[facility] Zopzeafcsv30[address] [place] [address]Dr. Farhat Leal PT Coag (PPP) [Time] 31.4 s Critically high 9.0-11.6 [facility] Comment on above: Performed By: #### P T ####[facility] Ghqilcejom0484 [place] [address]Dr. Farhat Leal MAGNESIUMon 03-11-2022 Magnesium [Mass/Vol] 1.6 mg/dL Critically low 1.8-2.4 [facility] Comment on above: Performed By: #### M HENRI Manzo ####[facility] Biawaamcdm[address] [place] [address]Dr. Farhat Leal PHOSPHORUSon 03-11-2022 Phosphate [Mass/Vol] 5.3 mg/dL Critically high 2.6-4.7 [facility] Comment on above: Performed By: #### M ANA ManzoS ####[facility] Ekvjbbih[address] [place], [place] [address]Dr. 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 Patient on mycophenolate mofetil , cellcept and prednisone Mixed hyperlipidemia due to type 2 diabetes mellitus ([facility]) 11/29/2021 Osteomyelitis ([facility]) 11/29/2021 Paroxysmal atrial fibrillation ([facility]) Renal transplant, status post SA node dysfunction ([facility]) s/p pacemaker Type 2 diabetes mellitus with diabetic neuropathy, with long-term current use of insulin ([facility]) 02/24/2002 PAST SURGICAL HISTORY Procedure [...] by mouth daily with lunch. [employer] [place] with lunch aspirin, enteric coated (ASPIRIN, ENTERIC COATED) 81 mg EC tablet Take 1 tablet by (more content not included)... Normal [facility] Walter PROTIMEon 02-25-2022 INR Coag (PPP) [Relative time] 1.31 {INR} Normal [facility] Comment on above: Performed By: #### P T ####[facility] Qyay[address]cbpwu[address] [place] [id number]. Farhat Leal INR GUIDELINES SEE BELOW Normal [facility] Comment on above: Result Comment: MALINA RED INR: 2.0 - 3.0 CONDITIONS NOT LISTED BELOW 2.5 - 3.5 FOR PROSTHETIC HEART VALVE REPLACEMENT 2.5 - 3.5 RECURRENT THROMBOSIS Performed By: #### P T ####[facility] Ofgdktnosb4654 [place] [address]DrSkylar Leal PT Coag (PPP) [Time] 13.7 s Critically high 9.0-11.6 [facility] Comment on above: Performed By: #### P T ####[facility] Idreyawzkp6493 [place] [address]DrSkylar Leal CNPNon 02-19-2022 CNPN Telephone (TXCTGL) ALEX ALMONTE ([id number]) 1945 M TRN Date Time Provider Department 02/19/22 AUGUSTA MEDRANO TXCTGL During your visit today, we recorded the following information about you: Augusta Medrano RN 02/19/2022 11:16 AM Signed [facility], [place], called regarding elevated tacrolimus level (23.9). Spoke [...] by mouth daily with lunch. 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/30/2006 VITAMIN D DEFICIENCY NOS [E55.9] 09/07/2008 [...] diabetes mellitus with diabetic peripher*11/29/2021 Atherosclerosis of eastern shoshone artery of extremity w*11/29/2021 Malnutrition of moderate degree (HCC) [E44.0] 12/01/2021 Dermatitis associated with moisture [L30.8] 12/04/2021 Encounter Status:Closed by AUGUSTA MEDRANO on 02/19/22 [facility] Sonya 02-18-2022 CNPN Telephone (PODCCP) ALEX ALMONTE ([id number]) 1945 M [facility] Date Time Provider Department 02/18/22 DEVON MOREIRA PODCCP During your visit today, we recorded the following information about you: Yumiko Camelia 02/18/2022 3:16 PM Signed Reason for call: Mr. Almonte would like to request a sooner appointment with Dr. Peterson than 04/13/2022. Contact Name (if not the patient) Alex's nurse Home and cell number(Ask for Alex's nurse) [phone] Diagnosis 4 mo f/u wound check Best [...] by mouth daily with lunch. 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 Normal [facility] CNOVon 02-05-2022 CNOV Office Visit (TXCTGL ) ALEX ALMONTE ([id number]) 1945 M TRN Date Time Provider Department 02/05/22 8:20 AM KIDNEY TXP CLINIC TXCTGL During your visit today, we recorded the following information about you: Temperature Pulse Blood pressure 96.7 degrees 79/minute 72/42 Asia Pike MD 02/05/2022 9:38 AM Signed [facility] [place] Transplant Follow up Portions of this note were copied from the last encounter. Changes were made to appropriately reflect updated history and interval events, physical exam, data review, and medical decision making. Patient presents for renal tx follow up care - Hospital admission / discharge in November 2021 for osteomyelitis HPI: Zevcasey Frederick is a 76 yr old male, s/p [...] and snacks patient declined. Indra scale at [facility]: 166.2 lbs per patient. Bed sore on coccyx causing discomfort. Being changed regularly at SNF- reported to be smaller around but still as deep. Patient not very up to date with medications. Patient brought paperwork from [facility] with all medications being received. Patient unsure if they have been drawing labs regularly. Last Tac from 01/19: 12.9 and K 5.9. In need of current labs. Lab orders will be sent with patient and follows as below: Kidney and Pancreas Transplant Standing Lab Orders [address] [facility] [address] [place], [place] [address] February 05, 2022 Alex Almonte 1945 [id number] STANDARD TESTING: Diagnosis Codes: Z94.0 Kidney Transplant [...] AT YOUR LABORATORY FACILITY AND FAX TO [phone]. PLEASE CALL [phone]. Provider: Dr. Pike Current Outpatient Medications Medication [...] Take 237 (more content not included)... Normal [facility] PROTEIN CREATININE RATIOon 1 04-08-2021 Protein/Creatinine (U) [Mass ratio] 0.10 mg/mg <0.15 mg/mg [facility] PROTIMEon 02-05-2022 INR Coag (PPP) [Relative time] 2.90 {INR} Normal [facility] Comment on above: Performed By: #### P T ####[facility] [address]qpcmsiy[address] [place] [id number]. Farhat Leal INR GUIDELINES SEE BELOW Normal [facility] Comment on above: Result Comment: MALINA RED INR: 2.0 - 3.0 CONDITIONS NOT LISTED BELOW 2.5 - 3.5 FOR PROSTHETIC HEART VALVE REPLACEMENT 2.5 - 3.5 RECURRENT THROMBOSIS Performed By: #### P T ####[facility] Ofxmssyeoz[address] [place] [phone]. Farhat Leal PT Coag (PPP) [Time] 29.2 s Critically high 9.0-11.6 [facility] Comment on above: Performed By: #### P T ####[facility] Kbgfsgdqsy4824 [place] [address]Dr. Farhat Leal Prot/Creat Uron 02-05-2022 Protein/Creatinine (U) [Mass ratio] 0.10 mg/mg Normal <0.15 [facility] Comment on above: Order Comment: Speci men Type: URINE SPECIMENOrdering Facility: [facility] Address: [address] [place] [address] Result Comment: Adul t Proteinuria Categories: <0.15 mg/mg is considered normal to mildly increased 0.15 - 0.50 mg/mg is considered moderately increased >0.50 mg/mg is considered severely increased KDIGO. (2013). KDIGO 2012 Clinical Practice Guideline for the Evaluation and Management of Chronic Kidney Disease. Official Journal of the International Society of Nephrology, 3(1), 1-150. Performed By: #### 2 890-2 ####[facility] [id number] [place] [address] [place] Protein/Creatinine (U) [Mass ratio]on 02-05-2022 Creatinine (U) [Mass/Vol] 86.9 mg/dL 20.0 - 300.0 mg/dL [facility] Protein (U) [Mass/Vol] 9 mg/dL 0 - 20 mg/dL [facility] Creatinine (U) [Mass/Vol] 86.9 mg/dL Normal 20.0-300.0 [facility] Comment on above: Order Comment: Speci men Type: URINE SPECIMENOrdering Facility: [facility] Address: [address] Performed By: #### 2 890-2 ####[facility] [id number] [place] [address] [place] Protein (U) [Mass/Vol] 9 mg/dL Normal 0-20 [facility] Comment on above: Order Comment: Speci men Type: URINE SPECIMENOrdering Facility: [facility] Address: [address] [address] Performed By: #### 2 890-2 ####[facility] [id number] [place] [address] [place] URINALYSIS, DIPSTICK ONLYon 02-05-2022 Bilirubin Ql (U) Negative Normal Negative [facility] Comment on above: Order Comment: Speci men Type: URINE SPECIMEN [facility] Address: [address] Performed By: #### U A #### [facility] CLIA [id number] [address] [place] [address] [place] Clarity (Unsp spec) Clear Normal Clear [facility] Comment on above: Order Comment: Speci men Type: URINE SPECIMEN [facility] Address: [address] Performed By: #### U A #### [facility] CLIA [id number] [address] [place] [address] [place] Color (U) Yellow Normal Yellow [facility] Comment on above: Order Comment: Speci men Type: URINE SPECIMEN [facility] Address: [address] Performed By: #### U A #### [facility] CLIA [id number] [address] [place] Glucose Test strip (U) [Mass/Vol] 3+ Abnormal Trace, Negative [facility] Comment on above: Order Comment: Speci men Type: URINE SPECIMEN [facility] Address: [address] [address] Performed By: #### U A #### [facility] CLIA [id number] [address] STATES OF [facility] Hemoglobin Ql (U) Negative Normal Negative, Trace [facility] Comment on above: Order Comment: Speci men Type: URINE SPECIMEN [facility] Address: [address] [place] [address] Performed By: #### U A #### [facility] CLIA [id number] [address] OF [place] Ketones Ql (U) Trace Normal Negative, Trace [facility] Comment on above: Order Comment: Speci men Type: URINE SPECIMEN [facility] Address: [address] [place] [address] Performed By: #### U A #### [facility] CLIA [id number] [address] Leukocyte esterase Test strip Ql (U) Negative Normal Negative, 25 Loraine/mL [facility] Comment on above: Order Comment: Speci men Type: URINE SPECIMEN [facility] Address: [address] Performed By: #### U A #### [facility] CLIA [id number] [address] [place] [address] [place] Nitrite Ql (U) Negative Normal Negative [facility] Comment on above: Order Comment: Speci men Type: URINE SPECIMEN [facility] Address: [address] Performed By: #### U A #### [facility] CLIA [id number] [facility] [place] [address] [place] pH (U) 5.5 [pH] Normal 5.0-8.0 [facility] Comment on above: Order Comment: Speci men Type: URINE SPECIMEN [facility] Address: [address] [place] [address] Performed By: #### U A #### [facility] CLIA [id number] [address] [place] [address] [place] Protein (U) [Mass/Vol] Negative Normal Trace , Negative [facility] Comment on above: Order Comment: Speci men Type: URINE SPECIMEN [facility] Address: [address] [place] [address] Performed By: #### U A #### [facility] [place] [id number] [address] [place] [address] [place] Specific gravity (U) [Rel density] 1.014 Normal 1.005-1.030 [facility] Comment on above: Order Comment: Speci men Type: URINE SPECIMEN [facility] Address: [address] [place] [address] Performed By: #### U A #### [facility] [place] [id number] [address] [place] [address] [place] Urobilinogen Ql (U) 1+ Abnormal Negative [facility] Comment on above: Order Comment: Speci men Type: URINE SPECIMEN [facility] Address: [address] [place] [address] Performed By: #### U A #### [facility] [place] [id number] [address] [place] [address] [place] Bilirubin Ql (U) Negative Negative [facility] Clarity (Unsp spec) Clear Clear [facility] Color (U) Yellow Yellow [facility] Glucose Test strip (U) [Mass/Vol] 3+ Abnormal Trace, Negative [facility] Hemoglobin Ql (U) Negative Negative, Trace [facility] Ketones Ql (U) Trace Negative, Trace [facility] Leukocyte esterase Test strip Ql (U) Negative Negative, 25 Loraine/mL [facility] Nitrite Ql (U) Negative Negative [facility] pH (U) 5.5 [pH] 5.0 - 8.0 [facility] Protein (U) [Mass/Vol] Negative Trace , Negative [facility] Specific gravity (U) [Rel density] 1.014 1.005 - 1.030 [facility] Urobilinogen Ql (U) 1+ Abnormal Negative [facility] FK506 (TACROLIMUS) WHOLE BLO ODon 01-29-2022 Tacrolimus (FK506), Blood 11.1 ng/mL Normal 2.0-20.0 [facility] Comment on above: Result Comment: Trou gh (immediately following transplant) 15.0 . Trough (steady state, 2 weeks or more after transplant): 3.0 - 8.0 . Performed by LC-MS/MS technology. Performed By: #### F K506T ####[facility] [address] [place], [place] [address]Dr. Farhat Leal PHOSPHORUSon 01-26-2022 Phosphate [Mass/Vol] 4.1 mg/dL Normal 2.6-4.7 [facility] Comment on above: Performed By: #### C CARA, PHOS ####[facility] [address] [place] [address]DrSkylar Leal PROF 14(COMP METB)on 022 Albumin [Mass/Vol] 2.1 g/dL Critically low 3.4-5.0 [facility] Comment on above: Performed By: #### C CARA, PHOS ####[facility] [address]wk[address]oy[address] [place] [place] [address]Dr. Farhat Leal Albumin/Globulin [Mass ratio] 0.6 {ratio} Normal [facility] Comment on above: Performed By: #### C CARA, PHOS ####[facility] Flcghzvnfa33[address] [place] [address]Dr. Farhat Leal ALP [Catalytic activity/Vol] 89 U/L Normal 46-116 [facility] Comment on above: Performed By: #### C CARA, PHOS ####[facility] Jfelcpqtbm504[address] [place], [place] [address]Dr. Farhat Leal ALT [Catalytic activity/Vol] 27 U/L Normal 16-63 [facility] Comment on above: Performed By: #### C CARA, PHOS ####[facility] Soqixkfhfw600[address] [place], [place] [address]Dr. Farhat Leal Anion gap [Moles/Vol] 12.3 mmol/L Normal [facility] Comment on above: Performed By: #### C MP, PHOS ####[facility] Coehdebngp580[address] [place], [place] [address]Dr. Farhat Elvis AST [Catalytic activity/Vol] 53 U/L Critically high 15-37 [facility] Comment on above: Performed By: #### C CARA, PHOS ####[facility] Boasosjlrx734293 [address] [place], [place] [address]Dr. Farhat Leal Bilirubin [Mass/Vol] 0.6 mg/dL Normal 0.2-1.0 [facility] Comment on above: Performed By: #### C CARA, PHOS ####[facility] Vihwzrdpha675[address] [place], [place] [address]Dr. Farhat Elvis Calcium [Mass/Vol] 8.0 mg/dL Critically low 8.5-10.1 [facility] Comment on above: Performed By: #### C CARA, PHOS ####[facility] Fxpqiodmpm928393 [address] [place], [place] [address]Dr. Farhat Leal Chloride [Moles/Vol] 97 mmol/L Critically low 98-107 [facility] Comment on above: Performed By: #### C MP, PHOS ####[facility] Ymrangxwec6670[address] [place], [place] [address]Dr. Farhat Leal CO2 [Moles/Vol] 26.6 mmol/L Normal 21.0-32.[address] [facility] Comment on above: Performed By: #### C CARA, PHOS ####[facility] Cfcmaztiai185[address] [place], [place] [address]Dr. Farhat Leal Creatinine [Mass/Vol] 1.03 mg/dL Normal 0.70-1.30 [facility] Comment on above: Performed By: #### C CARA, PHOS ####[facility] Ffylycbnbh0225 [place] [address]Dr. Farhat Leal EGFR-AF [place] >60 Normal >=[address] [facility] Comment on above: Performed By: #### C MP, PHOS ####[facility] Dmirqvhecf0736 [place] [address]Dr. Farhat Leal EGFR-NON AF [place] >60 Normal >=60 [facility] Comment on above: Performed By: #### C CARA, PHOS ####[facility] Gkrtbsxsoc385[address] [place], [place] [address]Dr. Farhat Leal Globulin (S) [Mass/Vol] 3.7 g/dL Normal [facility] Comment on above: Performed By: #### C CARA, PHOS ####[facility] Yvujflkhsy157593 [address] [place], [place] [address]Dr. Farhat Leal Glucose [Mass/Vol] 287 mg/dL Critically high 74-106 [facility] Comment on above: Performed By: #### C CARA, PHOS ####[facility] Fhuwaeataz537[address] [place], [place] [address]Dr. Farhat Leal Potassium [Moles/Vol] 3.9 mmol/L Normal 3.5-5.1 [facility] Comment on above: Performed By: #### C CARA, PHOS ####[facility] Gcqglrbmtp2900[address] [place], [place] [address]Dr. Farhat Leal Protein [Mass/Vol] 5.8 g/dL Critically low 6.4-8.2 [facility] Comment on above: Performed By: #### C CARA, PHOS ####[facility] Efvpaetehd780[address] [place], [place] [address]Dr. Farhat Leal Sodium [Moles/Vol] 132 mmol/L Critically low 136-145 [facility] Comment on above: Performed By: #### C CARA, PHOS ####[facility] Rtxezwbvrn6590[address] [place], [place] [address]Dr. Farhat Leal Urea nitrogen [Mass/Vol] 23.0 mg/dL Critically high 7.0-18.0 [facility] Comment on above: Performed By: #### C HENRI MARROQUIN ####[facility] Pptiroevef4966 [place] [address]Dr. Farhat Leal Urea nitrogen/Creatinine [Mass ratio] 22.3 mg/mg Normal [facility] Comment on above: Performed By: #### C HENRI MARROQUIN ####[facility] Wesvoybpom2852 [place] [address]Dr. Farhat Leal FK506 (TACROLIMUS) WHOLE BLO ODon 01-21-2022 Tacrolimus (FK506), Blood 12.2 ng/mL Normal 2.0-20.0 [facility] Comment on above: Result Comment: Trou gh (immediately following transplant) 15.0 . Trough (steady state, 2 weeks or more after transplant): 3.0 - 8.0 . Performed by LC-MS/MS technology. Performed By: #### F K506T ####[facility] Omjurlgonb985[address] [place], [place] [address]Dr. Farhat Leal ACID FAST SMEAR AND CXon Acid Fast Culture Negative Normal [facility] Comment on above: Result Comment: No a abdiel fast bacilli isolated after 6 weeks. Performed By: #### A FB ####[facility] Wvtbhmemwk[address] [place], [place] [address]Dr. Farhat Leal Acid Fast Smear Negative Normal [facility] Comment on above: Performed By: #### A FB ####[facility] Uqhwtgevcx085[address] [place], [place] [address]Dr. Farhat Leal [employer] Specimen Processing Tissue Grinding Normal [facility] Comment on above: Performed By: #### A FB ####[facility] Yjethmscim[address] [place], [place] [address]Dr. Farhat Hassan [facility]20[facility] ALEX ALMONTE ([id number]) 1945 M TRN Date Time Provider Department [...] by mouth daily with lunch. 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 Atherosclerosis of [place] artery of extremity w*11/29/2021 Malnutrition of moderate degree (HCC) [E44.0] 12/01/2021 Dermatitis associated with moisture [L30.8] 12/04/2021 Encounter Status:Closed by VAN OLIVAREZ on 01/20/22 [facility](COMP METB)on 022 Albumin [Mass/Vol] 1.9 g/dL Critically low 3.4-5.0 [facility] Comment on above: Performed By: #### C MP ####[facility] Dkieacfekc5343 [place] [address]DrSkylar Leal Albumin/Globulin [Mass ratio] 0.5 {ratio} Normal [facility] Comment on above: Performed By: #### C MP ####[facility] Tvdktpsnoh2747 [place] [address]DrSkylar Leal ALP [Catalytic activity/Vol] 78 U/L Normal 46-116 [facility] Comment on above: Performed By: #### C MP ####[facility] Wnyjbhtkuu2366 [place] [address]DrSkylar Leal ALT [Catalytic activity/Vol] 22 U/L Normal 16-63 [facility] Comment on above: Performed By: #### C MP ####[facility] Llthrybwsi9334 [place] [address]Dr. Farhat Elvis Anion gap [Moles/Vol] 8.0 mmol/L Normal [facility] Comment on above: Performed By: #### C MP ####[facility] Wlknxwbmbb1315 [place] [id number]. Farhat Elvis AST [Catalytic activity/Vol] 92 U/L Critically high 15-37 [facility] Comment on above: Performed By: #### C MP ####[facility] Zjpjaiaoqv1048[address] [place], [place] [address]Dr. Farhat Leal Bilirubin [Mass/Vol] 0.7 mg/dL Normal 0.2-1.0 [facility] Comment on above: Performed By: #### C MP ####[facility] Ccbovfjsqs1460[address] [place], [place] [address]Dr. Farhat Leal Calcium [Mass/Vol] 7.8 mg/dL Critically low 8.5-10.1 [facility] Comment on above: Performed By: #### C MP ####[facility] Kpglcutzfj624[address] [place], [place] [address]Dr. Farhat Leal Chloride [Moles/Vol] 99 mmol/L Normal 98-107 [facility] Comment on above: Performed By: #### C MP ####[facility] Nqfwqvtlim1825[address] [place], [place] [address]Dr. Farhat Leal CO2 [Moles/Vol] 30.9 mmol/L Normal 21.0-32.0 [facility] Comment on above: Performed By: #### C MP ####[facility] Xrknzguxvz567[address] [place], [place] [address]Dr. Farhat Leal Creatinine [Mass/Vol] 0.95 mg/dL Normal 0.70-1.30 [facility] Comment on above: Performed By: #### C MP ####[facility] Isxodmtwwa187293 [address] [place], [place] [address]Dr. Farhat Leal EGFR-AF [place] >60 Normal >=[address] [facility] Comment on above: Performed By: #### C MP ####[facility] Aauoksjycq4564 [place] [id number]. Farhat Leal EGFR-NON AF [place] >60 Normal >=60 [facility] Comment on above: Performed By: #### C MP ####[facility] Zutadjiksu4082 [place] [id number]. Farhat Leal Globulin (S) [Mass/Vol] 3.9 g/dL Normal [facility] Comment on above: Performed By: #### C MP ####[facility] Vqwonmvtwv6181 [place] [phone]. Farhat Leal Glucose [Mass/Vol] 124 mg/dL Critically high 74-106 T [facility] Comment on above: Performed By: #### C MP ####[facility] Cymqimsytw[address] [place] [phone]. Farhat Leal Potassium [Moles/Vol] 5.9 mmol/L Critically high 3.5-5.1 [facility] Comment on above: Performed By: #### C MP ####[facility] Comxwddlvx9045 [place] [id number]. Farhat Leal Protein [Mass/Vol] 5.8 g/dL Critically low 6.4-8.2 [facility] Comment on above: Performed By: #### C MP ####[facility] Felisktvwb2412 [place] [address]Dr. Farhat Leal Sodium [Moles/Vol] 132 mmol/L Critically low 136-145 [facility] Comment on above: Performed By: #### C MP ####[facility] Ccqteqtegu6730 [place] [phone]. Farhat Leal Urea nitrogen [Mass/Vol] 18.0 mg/dL Normal 7.0-18.0 [facility] Comment on above: Performed By: #### C MP ####[facility] Betyrzvqbk6191 [place] [phone]. Farhat Elvis Urea nitrogen/Creatinine [Mass ratio] 18.9 mg/mg Normal [facility] Comment on above: Performed By: #### C MP ####[facility] Feohiigywq7200 [place] [phone]. Farhat Lela INR (POC)on 01-12-2022 INR Coag (PPP) [Relative time] 2.6 {INR} High 0.8 - 1.2 [facility] Internal Quality Check Acceptable Cl [facility] ACID FAST SMEAR AND CXon Acid Fast Culture Negative Normal [facility] Comment on above: Result Comment: No a abdiel fast bacilli isolated after 6 weeks. Performed By: #### A FB ####[facility] Motnigrvxz8410[address] [place], [place] [address]Dr. Farhat Leal Acid Fast Smear Negative Normal [facility] Comment on above: Performed By: #### A FB ####[facility] Awycqzqfdy269[address] [place], [place] [address]Dr. Farhat Leal [employer] Specimen Processing Direct Inoculation Normal [facility] Comment on above: Performed By: #### A FB ####[facility] Umyrolniax[address] [place], [place] [address]Dr. Farhat Leal ACID FAST SMEAR AND CXon Acid Fast Culture Negative Normal [facility] Comment on above: Result Comment: No a abdiel fast bacilli isolated after 6 weeks. Performed By: #### A FB ####[facility] Yjavazvxzb8632[address] [place], [place] [address]Dr. Farhat Leal Acid Fast Smear Negative Normal [facility] Comment on above: Performed By: #### A FB ####[facility] Eqlxdpklzz457[address] [place], [place] [address]Dr. Farhat Leal [employer] Specimen Processing Tissue Grinding Normal [facility] Comment on above: Performed By: #### A FB ####[facility] Rwgrvplawm9917[address] [place], [place] [address]Dr. Farhat Leal FUNGAL CULTUREon 01-02-2022 Fungus (Mycology) Culture Final report Normal [facility] Comment on above: Performed By: #### C XFUN ####[facility] Xxacoxqlqc164993 [address] [place], [place] [address]Dr. Farhat Leal Fungus Stain Final report Normal [facility] Comment on above: Performed By: #### C XFUN ####[facility] Ntbrspbaoz[address] [place] [address]. Farhat Leal Result 1 Comment Normal [facility] Comment on above: Result Comment: ANNI/ Calcofluor preparation: no fungus observed. Performed By: #### C XFUN ####[facility] Ilkqpwtlkl[address] [place] [address]. Farhat Leal Result Comment: No y east or mold isolated after 4 weeks. FK506 (TACROLIMUS) WHOLE BLO ODon 12-31-2021 Tacrolimus (FK506), Blood 7.7 ng/mL Normal 2.0-20.0 [facility] Comment on above: Result Comment: Trou gh (immediately following transplant) 15.0 . Trough (steady state, 2 weeks or more after transplant): 3.0 - 8.0 . Performed by LC-MS/MS technology. Performed By: #### F K506T ####[facility] Slgyxsrpjy[address] [place] [address]. Farhat Leal HEMOGRAM AND PLATELon 2021 Hematocrit (Bld) [Volume fraction] 27.1 % Critically low 42.0-54.0 [facility] Comment on above: Performed By: #### H H ####[facility] Nssmlfgder06[address] [place] [address]. Farhat Leal Hemoglobin (Bld) [Mass/Vol] 8.7 g/dL Critically low 14.0-18.0 [facility] Comment on above: Performed By: #### H H ####[facility] Rwntvteipl[address] [place] [address]. Farhat Leal MCH (RBC) [Entitic mass] 30.3 pg Normal 25.9-34.0 [facility] Comment on above: Performed By: #### H H ####[facility] Ktxsvciktu[address] [place] [address]. Farhat Leal MCHC (RBC) [Mass/Vol] 32.1 g/dL Normal 29.9-35.2 [facility] Comment on above: Performed By: #### H H ####[facility] Nntefemjkg4767 [place] [phone]. Farhat Leal MCV (RBC) [Entitic vol] 94.4 fL Critically high 80.0-94.0 [facility] Comment on above: Performed By: #### H H ####[facility] Juvdfqxcnr2660 [place] [address]Dr. Farhat Leal PLT 355 103/ul Normal 150-450 [facility] Comment on above: Performed By: #### H H ####[facility] Mmmaxewgei5778 [place] [phone]. Farhat Leal RBC 2.87 106/ul Critically low 4.70-6.10 [facility] Comment on above: Performed By: #### H H ####[facility] Ylnykquwsg2802 [place] [address]Dr. Farhat Elvis WBC 6.0 103/ul Normal 4.0-11.0 [facility] Comment on above: Performed By: #### H H ####[facility] Qblpfkupvr9049 [place] [address]Dr. Farhat Elvis PHOSPHORUSon 12-29-2021 Phosphate [Mass/Vol] 2.5 mg/dL Critically low 2.6-4.7 [facility] Comment on above: Performed By: #### P HOS, CMP ####[facility] Nebcldkmgt518[address] [place], [place] [address]Dr. Madelynlorri Leal PROF 14(COMP METB)on 022 Albumin [Mass/Vol] 1.7 g/dL Critically low 3.4-5.0 [facility] Comment on above: Performed By: #### P HOS, CMP ####[facility] Opwvqsdqdt301[address] [place], [place] [address]Dr. Farhat Elvis Albumin/Globulin [Mass ratio] 0.5 {ratio} Normal [facility] Comment on above: Performed By: #### P HOS, CMP ####[facility] Sermuejxky5354 [place] [address]Dr. Farhat Leal ALP [Catalytic activity/Vol] 78 U/L Normal 46-116 [facility] Comment on above: Performed By: #### P HOS, CMP ####[facility] Kkrcbdhivt1990[address] [place], [place] [address]Dr. Farhat Leal ALT [Catalytic activity/Vol] 12 U/L Critically low 16-63 [facility] Comment on above: Performed By: #### P HOS, CMP ####[facility] Asfapeplpj545[address] [place], [place] [address]Dr. Farhat Leal Anion gap [Moles/Vol] 5.1 mmol/L Normal [facility] Comment on above: Performed By: #### P HOS, CMP ####[facility] Prhabilrye46399[address] [place], [place] [address]Dr. Farhat Leal AST [Catalytic activity/Vol] 22 U/L Normal 15-37 [facility] Comment on above: Performed By: #### P HOS, CMP ####[facility] Sizgfjkaiw312293 [address] [place], [place] [address]Dr. Farhat Leal Bilirubin [Mass/Vol] 0.6 mg/dL Normal 0.2-1.0 [facility] Comment on above: Performed By: #### P HOS, CMP ####[facility] Tpeadpfrhr8980[address] [place], [place] [address]Dr. Farhat Leal Calcium [Mass/Vol] 8.1 mg/dL Critically low 8.5-10.1 [facility] Comment on above: Performed By: #### P HOS, CMP ####[facility] Tnvuoexscs423[address] [place], [place] [address]Dr. Farhat Leal Chloride [Moles/Vol] 100 mmol/L Normal 98-107 [facility] Comment on above: Performed By: #### P HOS, CMP ####[facility] Ercesrcwfn046193 [address] [place], [place] [address]Dr. Farhat Leal CO2 [Moles/Vol] 34.2 mmol/L Critically high 21.0-32.0 [facility] Comment on above: Performed By: #### P HOS, CMP ####[facility] Yehzfuyclf8910[address] [place], [place] [address]Dr. Farhat Elvis Creatinine [Mass/Vol] 0.92 mg/dL Normal 0.70-1.30 [facility] Comment on above: Performed By: #### P HOS, CMP ####[facility] Glvossgppc2107 [place] [address]Dr. Farhat Leal EGFR-AF [place] >60 Normal >=[address] [facility] Comment on above: Performed By: #### P HOS, CMP ####[facility] Cxurzypumd6108 [place] [phone]. Farhat Elvis EGFR-NON AF [place] >60 Normal >=60 [facility] Comment on above: Performed By: #### P HOS, CMP ####[facility] Cmqfxcrbek3445 [place] [address]Dr. Farhat Leal Globulin (S) [Mass/Vol] 3.3 g/dL Normal [facility] Comment on above: Performed By: #### P HOS, CMP ####[facility] Eyfknvnoed015593 [address] [place], [place] [address]Dr. Farhat Leal Glucose [Mass/Vol] 116 mg/dL Critically high 74-106 [facility] Comment on above: Performed By: #### P HOS, CMP ####[facility] Zwmgajlscr070[address] [place], [place] [address]Dr. Farhat Leal Potassium [Moles/Vol] 3.3 mmol/L Critically low 3.5-5.1 [facility] Comment on above: Performed By: #### P HOS, CMP ####[facility] Ijfjwvugje364[address] [place], [place] [address]Dr. Madelynlorri Elvis Protein [Mass/Vol] 5.0 g/dL Critically low 6.4-8.2 [facility] Comment on above: Performed By: #### P HOS, CMP ####[facility] Ttsppounrm518[address] [place], [place] [address]Dr. Farhat eLal Sodium [Moles/Vol] 136 mmol/L Normal 136-145 [facility] Comment on above: Performed By: #### P HOS, CMP ####[facility] Mafvtbtdov1917[address] [place], [place] [address]Dr. Farhat Leal Urea nitrogen [Mass/Vol] 14.0 mg/dL Normal 7.0-18.0 [facility] Comment on above: Performed By: #### P HOS, CMP ####[facility] Tdeijzvtdr198[address] [place], [place] [address]DrSkylar Leal Urea nitrogen/Creatinine [Mass ratio] 15.2 mg/mg Normal [facility] Comment on above: Performed By: #### P HOS, CMP ####[facility] Uasajusmne7087[address] [place], [place] [address]DrSkylar Leal PROTIMEon 12-29-2021 INR Coag (PPP) [Relative time] 1.26 {INR} Normal [facility] Comment on above: Performed By: #### P T ####[facility] Pnyxlaiico8315[address] [place], [place] [address]DrSkylar Leal INR GUIDELINES SEE BELOW Normal [facility] Comment on above: Result Comment: MALINA RED INR: 2.0 - 3.0 CONDITIONS NOT LISTED BELOW 2.5 - 3.5 FOR PROSTHETIC HEART VALVE REPLACEMENT 2.5 - 3.5 RECURRENT THROMBOSIS Performed By: #### P T ####[facility] Xazzhwbqbt0624[address] [place], [place] [address]DrSkylar Leal PT Coag (PPP) [Time] 13.4 s Critically high 9.0-11.6 [facility] Comment on above: Performed By: #### P T ####[facility] Czcjjbrmyr[address] [place], [place] [address]DrSkylar Leal XR MODIFIED BARIUM SWALLOWon 12-25-2021 XR MODIFIED BARIUM SWALLOW Normal [facility] FUNGAL CULTUREon 12-24-2021 Fungus (Mycology) Culture Final report Normal [facility] Comment on above: Performed By: #### C XFUN ####[facility] Bhtrlzxciy[address] [place], [place] [address]DrSkylar Leal Fungus Stain Final report Normal [facility] Comment on above: Performed By: #### C XFUN ####[facility] Knlawvynnk454[address] [place], [place] [address]DrSkylar Leal Result 1 Comment Normal [facility] Comment on above: Result Comment: ANNI/ Calcofluor preparation: no fungus observed. Performed By: #### C XFUN ####[facility] Ygixklbumt7650 [place] [address]Dr. Farhat Leal Result Comment: No y east or mold isolated after 4 weeks. VANCOMYCIN TROUGHon 12-21-19 VANCOMYCIN TROUGH 14.4 ug/ml Normal 5.0-20.0 [facility] Comment on above: Performed By: #### V ANCT ####[facility] Vkepbzvpzw774[address] [place], [place] [address]Dr. Farhat Leal CBC AUTO DIFFon 12-14-2021 BASO # 0.0 103/ul Normal 0.0-0.1 [facility] Comment on above: Performed By: #### C BC ####[facility] Etzposjjeg24[address] [place], [place] [address]Dr. Madelynlorri Leal Basophils/100 WBC (Bld) 0.2 % Normal 0.2-2.0 [facility] Comment on above: Performed By: #### C BC ####[facility] Norsmgnfde317[address] [place], [place] [address]Dr. Farhat Elvis EO # 0.2 103/ul Normal 0.0-0.7 [facility] Comment on above: Performed By: #### C BC ####[facility] Dusrsnbqzw638[address] [place], [place] [address]Dr. Farhat Elvis Eosinophils/100 WBC (Bld) 2.1 % Normal 0.9-7.0 [facility] Comment on above: Performed By: #### C BC ####[facility] Crbmztpaxw415[address] [place], [place] [address]Dr. Farhat Leal Erythrocyte distribution width (RBC) [Ratio] 18.2 % Critically high 11.0-15.0 [facility] Comment on above: Performed By: #### C BC ####[facility] Uizpivbtuk2480[address] [place], [place] [address]Dr. Farhat Leal Hematocrit (Bld) [Volume fraction] 25.8 % Critically low 42.0-54.0 [facility] Comment on above: Performed By: #### C BC ####[facility] Eqsgvlrsks1984 [place] [id number]. Farhat Leal Hemoglobin (Bld) [Mass/Vol] 8.0 g/dL Critically low 14.0-18.0 [facility] Comment on above: Performed By: #### C BC ####[facility] Awfnbbvaum2043 [place] [phone]. Farhat Leal IG # 0.08 10e3/ul Critically high 0.00-0.03 [facility] Comment on above: Performed By: #### C BC ####[facility] Wmneehpkcr4111 [place] [id number]. Farhat Leal IG % 0.7 % Critically high 0.0-0.5 [facility] Comment on above: Performed By: #### C BC ####[facility] Mtxlovoxah3226[address] [place], [place] [address]Dr. Farhat Leal LYMPH # 0.9 103/ul Critically low 1.2-3.8 [facility] Comment on above: Performed By: #### C BC ####[facility] Dewruditzv5921 [place] [address]Dr. Farhat Leal Lymphocytes/100 WBC (Bld) 8.7 % Critically low 20.5-60.0 [facility] Comment on above: Performed By: #### C BC ####[facility] Nneulnjmqv4909 [place] [address]Dr. Farhat Leal MANUAL DIFF REQ NO Normal [facility] Comment on above: Performed By: #### C BC ####[facility] Yifgwiustl6722[address] [place], [place] [address]Dr. Farhat Leal MCH (RBC) [Entitic mass] 30.0 pg Normal 25.9-34.0 [facility] Comment on above: Performed By: #### C BC ####[facility] Buatbzndoh[address] [place], [place] [address]Dr. Farhat Leal MCHC (RBC) [Mass/Vol] 31.0 g/dL Normal 29.9-35.2 [facility] Comment on above: Performed By: #### C BC ####[facility] Atrswkbyzx0378 [place] [id number]. Farhat Leal MCV (RBC) [Entitic vol] 96.6 fL Critically high 80.0-94.0 [facility] Comment on above: Performed By: #### C BC ####[facility] Puhxvjjjun5632 [place] [id number]. Farhat Leal MONO # 0.7 103/ul Normal 0.3-0.8 [facility] Comment on above: Performed By: #### C BC ####[facility] [address]izdsumlvv[address] [place], [place] [address]Dr. Farhat Leal Monocytes/100 WBC (Bld) 6.7 % Normal 1.7-12.0 [facility] Comment on above: Performed By: #### C BC ####[facility] Mreyqhfnpv76[address] [place], [place] [address]Dr. Farhat Leal NEUT # 8.8 103/ul Critically high 1.4-6.5 [facility] Comment on above: Performed By: #### C BC ####[facility] Crnryjqxtq[address] [place], [place] [address]Dr. Farhat Leal Neutrophils/100 WBC (Bld) 81.6 % Critically high 43.0-75.0 [facility] Comment on above: Performed By: #### C BC ####[facility] Dcvudhwmlw[address] [place], [place] [address]Dr. Farhat Leal Platelet mean volume (Bld) [Entitic vol] 10.5 fL Normal 9.5-13.5 [facility] Comment on above: Performed By: #### C BC ####[facility] Tswabnokgo[address] [place], [place] [address]Dr. Farhat Leal PLT 285 103/ul Normal 150-450 [facility] Comment on above: Performed By: #### C BC ####[facility] Bglyudoenb[address] [place], [place] [id number]. Farhat Leal RBC 2.67 106/ul Critically low 4.70-6.10 [facility] Comment on above: Performed By: #### C BC ####[facility] Fpsawioqgy89[address] [place] [id number]. Farhat Elvis WBC 10.7 103/ul Normal 4.0-11.0 [facility] Comment on above: Performed By: #### C BC ####[facility] Gtsnyzytha0948 [place] [phone]. Madelynlorri Leal PROF CHEM 8 (BAS METB)on Anion gap [Moles/Vol] 12.4 mmol/L Normal [facility] Comment on above: Performed By: #### B MP ####[facility] Iqiuezhkpw[address] [place] [address]Dr. Farhat Leal Calcium [Mass/Vol] 7.8 mg/dL Critically low 8.5-10.1 [facility] Comment on above: Performed By: #### B MP ####[facility] Fqmcirlkrq56[address] [place], [place] [address]Dr. Farhat Leal Chloride [Moles/Vol] 102 mmol/L Normal 98-107 [facility] Comment on above: Performed By: #### B MP ####[facility] Sdqfivjhsc19[address] [place], [place] [address]Dr. Madelynlorri Leal CO2 [Moles/Vol] 28.1 mmol/L Normal 21.0-32.[address] [facility] Comment on above: Performed By: #### B MP ####[facility] Mwbgorlbpr16[address] [place], [place] [address]Dr. Farhat Leal Creatinine [Mass/Vol] 1.24 mg/dL Normal 0.70-1.30 [facility] Comment on above: Performed By: #### B MP ####[facility] Gdirnusjpz23[address] [place] [address]Dr. Farhat Leal EGFR-AF [place] >60 Normal >=60 The [facility] Comment on above: Performed By: #### B MP ####[facility] Lgxkgmxzaa0847 [place] [phone]. Farhat Leal EGFR-NON AF [place] 57 mL/min/1.73m2 Critically low >=60 [facility] Comment on above: Performed By: #### B MP ####[facility] Ldugektatb9913 [place] [address]Dr. Farhat Leal Glucose [Mass/Vol] 296 mg/dL Critically high 74-106 T [facility] Comment on above: Performed By: #### B MP ####[facility] Mhwxtrbyst0915 [place] [address]Dr. Farhat Leal Potassium [Moles/Vol] 3.5 mmol/L Normal 3.5-5.1 [facility] Comment on above: Performed By: #### B MP ####[facility] Vberxsyizj219[address] [place], [place] [address]Dr. Farhat Leal Sodium [Moles/Vol] 139 mmol/L Normal 136-145 [facility] Comment on above: Performed By: #### B MP ####[facility] Axusnqhqom409[address] [place], [place] [address]Dr. Farhat Leal Urea nitrogen [Mass/Vol] 27.0 mg/dL Critically high 7.0-18.0 [facility] Comment on above: Performed By: #### B MP ####[facility] Gapueerqkr455[address] [place], [place] [address]Dr. Farhat Leal Urea nitrogen/Creatinine [Mass ratio] 21.8 mg/mg Normal [facility] Comment on above: Performed By: #### B MP ####[facility] Xajakdwsrh123[address] [place], [place] [address]Dr. Farhat Leal PROTIMEon 12-14-2021 INR Coag (PPP) [Relative time] 3.36 {INR} Normal [facility] Comment on above: Performed By: #### P T ####[facility] Augwiwtlqf19[address] [place], [place] [address]Dr. Farhat Leal INR GUIDELINES SEE BELOW Normal [facility] Comment on above: Result Comment: MALINA RED INR: 2.0 - 3.0 CONDITIONS NOT LISTED BELOW 2.5 - 3.5 FOR PROSTHETIC HEART VALVE REPLACEMENT 2.5 - 3.5 RECURRENT THROMBOSIS Performed By: #### P T ####[facility] Arctonhipw[address] [place], [place] [address]DrSkylar Leal PT Coag (PPP) [Time] 33.5 s Critically high 9.0-11.6 [facility] Comment on above: Performed By: #### P T ####[facility] Gszaxdkonk8363 [place], [place] [address]XrSkylar Joshilorri Elvis XR CHEST 1 Von 12-14-2021 XR CHEST 1 V Normal [facility] No Panel Informationon 12-01 BLANK _ [facility] Implant Date 04/22/2012 [facility] CHECKon AMS Duration (ms) 5 of 8 [facility] AMS Fallback Rate (bpm) DDIR [facility] AV Delay Adaptive Paced Minimum (ms) 300 ms [facility] AV Delay Adaptive Rate Maximum (bpm) 130 {beats}/min [facility] AV Delay Adaptive Rate Minimum (bpm) 70 {beats}/min [facility] AV Delay Adaptive Sensed Minimum (ms) 300 ms [facility] AV Delay Paced (ms) 300 ms [facility] AV Delay Sensed (ms) [address] [facility] Jaciel LV Pacing Polarity Unknown [facility] Jaciel LV Sensing Polarity Unknown [facility] Jaciel RA Pacing Amplitude (volts) 2.4 V [facility] Jaciel RA Pacing Polarity BI [facility] Jaciel RA Pacing Pulse Width (ms) 0.4 ms [facility] Jaciel RA Sensing Amplitude (mvolts) AUTO [facility] Jaciel RA Sensing Blanking Period (ms) 56 ms [facility] Jaciel RA Sensing Polarity BI [facility] Jaciel RA Sensing Refractory Period (ms) AUTO [facility] Jaciel RV Pacing Amplitude (volts) 3.4 V [facility] Jaciel RV Pacing Polarity BI [facility] Jaciel RV Pacing Pulse Width (ms) 0.4 ms [facility] Jaciel RV Sensing Amplitude (mvolts) AUTO [facility] Jaciel RV Sensing Blanking Period (ms) 30 ms [facility] Jaciel RV Sensing Polarity BI [facility] Jaciel RV Sensing Refractory Period (ms) 250 ms [facility] Hysteresis Rate (bpm) 60 {beats}/min [facility] Lead1 Mfg SUZETTE [facility] Lead2 Mfg SUZETTE [facility] Location RA [facility] Location RV [facility] Lower Rate (bpm) 60 {beats}/min [facility] Max Sensor Rate (bmp) 130 {beats}/min [facility] Model 649257 Monika Dominguez [facility] Model 229934 [facility] Model 492497 [facility] Pacemaker Dependent? NO [facility] PM-Device Mfg BIO [facility] PM-PMT Intervention ON [facility] PM-PVC Intervention ON [facility] PM-Rate Modulation Acceleration Reaction 4 s [facility] PM-Rate Modulation Deceleration 0.5 m [facility] PM-Rate Modulation [place] 23 [facility] PM-Rate Modulation Threshold Medium [facility] RA Bipolar Impedance ohms 448 ohm [facility] Rhythm AF with controlled ventricular rate. [facility] RV Bipolar Impedance ohms 390 ohm [facility] Serial Number [id number] [facility] Serial Number [id number] [facility] Serial Number [id number] [facility] Thresh RA Sensing Amplitude (mvolts) 2.4 mV [facility] Thresh RV Capture Amplitude (volts) 1.8 V [facility] Thresh RV Capture Duration (ms) 0.4 ms [facility] Thresh RV Sensing Amplitude (mvolts) 2.4 mV [facility] Tracking Rate (bpm) 160 {beats}/min [facility] BNPon 11-28-2021 Natriuretic peptide B (Bld) [Mass/Vol] 12801.0 pg/mL Critically high <=1,800.0 [facility] Comment on above: Performed By: #### C MP, BNP, CRP ####[facility] Luknuxpzwx6430[address] [place], [place] [address]Dr. Farhat Leal CBC AUTO DIFFon 11-28-2021 BASO # 0.0 103/ul Normal 0.0-0.1 [facility] Comment on above: Performed By: #### C BC ####[facility] Fivfvkwtmm5106 [place] [address]Dr. Farhat Leal Basophils/100 WBC (Bld) 0.3 % Normal 0.2-2.0 [facility] Comment on above: Performed By: #### C BC ####[facility] Lfsmcvcick199[address] [place], [place] [address]Dr. Farhat Leal EO # 0.1 103/ul Normal 0.0-0.7 [facility] Comment on above: Performed By: #### C BC ####[facility] Yeedfzrcui[address] [place], [place] [address]Dr. Farhat Leal Eosinophils/100 WBC (Bld) 1.0 % Normal 0.9-7.0 [facility] Comment on above: Performed By: #### C BC ####[facility] Ptioyxfaih5736 [place] [address]Dr. Farhta Leal Erythrocyte distribution width (RBC) [Ratio] 14.0 % Normal 11.0-15.0 [facility] Comment on above: Performed By: #### C BC ####[facility] Uhefklqfsv44[address] [place], [place] [address]Dr. Farhat Leal Hematocrit (Bld) [Volume fraction] 27.6 % Critically low 42.0-54.0 [facility] Comment on above: Performed By: #### C BC ####[facility] Pdiccqzcyy[address] [place], [place] [address]Dr. Farhat Leal Hemoglobin (Bld) [Mass/Vol] 9.0 g/dL Critically low 14.0-18.0 [facility] Comment on above: Performed By: #### C BC ####[facility] Khkbremlke45[address] [place], [place] [address]Dr. Farhat Leal IG # 0.12 10e3/ul Critically high 0.00-0.03 [facility] Comment on above: Performed By: #### C BC ####[facility] Eprasxsxhs216[address] [place], [place] [address]Dr. Farhat Leal IG % 1.0 % Critically high 0.0-0.5 [facility] Comment on above: Performed By: #### C BC ####[facility] Ztuogdbqhb265[address] [place], [place] [address]Dr. Farhat Leal LYMPH # 1.2 103/ul Normal 1.2-3.8 [facility] Comment on above: Performed By: #### C BC ####[facility] Olnsarkzmq97[address] [place], [place] [address]Dr. Farhat Leal Lymphocytes/100 WBC (Bld) 9.9 % Critically low 20.5-60.0 [facility] Comment on above: Performed By: #### C BC ####[facility] Oriusbaopv3260 [place] [id number]. Farhat Leal MANUAL DIFF REQ NO Normal [facility] Comment on above: Performed By: #### C BC ####[facility] Tddhvzvyib8040 [place] [phone]. Farhat Leal MCH (RBC) [Entitic mass] 30.0 pg Normal 25.9-34.0 [facility] Comment on above: Performed By: #### C BC ####[facility] Prbrxzyvhb7432 [place] [address]Dr. Farhat Leal MCHC (RBC) [Mass/Vol] 32.6 g/dL Normal 29.9-35.2 [facility] Comment on above: Performed By: #### C BC ####[facility] Fwbzhwebwd8826 [place] [address]Dr. Farhat Leal MCV (RBC) [Entitic vol] 92.0 fL Normal 80.0-94.0 [facility] Comment on above: Performed By: #### C BC ####[facility] Unutfrsosb6653 [place] [id number]. Farhat Elvis MONO # 1.1 103/ul Critically high 0.3-0.8 [facility] Comment on above: Performed By: #### C BC ####[facility] Dymnyulcfz3548 [place] [id number]. Madelynlorri Leal Monocytes/100 WBC (Bld) 9.3 % Normal 1.7-12.0 [facility] Comment on above: Performed By: #### C BC ####[facility] Ztypimztfh3870 [place] [id number]. Farhat Leal NEUT # 9.3 103/ul Critically high 1.4-6.5 [facility] Comment on above: Performed By: #### C BC ####[facility] Kpuluihxjl8516 [place] [id number]. Farhat Leal Neutrophils/100 WBC (Bld) 78.5 % Critically high 43.0-75.0 [facility] Comment on above: Performed By: #### C BC ####[facility] Gctmapfifa5834 [place] [phone]. Farhat Leal Platelet mean volume (Bld) [Entitic vol] 9.6 fL Normal 9.5-13.5 [facility] Comment on above: Performed By: #### C BC ####[facility] Baemdpbcmk3203 [place] [id number]. Farhat Leal PLT 357 103/ul Normal 150-450 [facility] Comment on above: Performed By: #### C BC ####[facility] Lxcyurdsmk0262 [place] [phone]. Farhat Leal RBC 3.00 106/ul Critically low 4.70-6.10 [facility] Comment on above: Performed By: #### C BC ####[facility] Wfpzohlunl0104 [place] [phone]. Farhat Leal WBC 11.8 103/ul Critically high 4.0-11.[address] [facility] Comment on above: Performed By: #### C BC ####[facility] Ptfqyakhjl94[address] [place], [place] [address]Dr. Farhat Leal CRPon 11-28-2021 CRP 20.9 mg/dL Critically high <=1.0 [facility] Comment on above: Performed By: #### C MP, BNP, CRP ####[facility] Mhdrpscdnt1443 [place] [phone]. Farhat Leal CULTURE OTHERon 11-28-2021 CULTURE OTHER Normal [facility] Comment on above: Performed By: #### O THCX ####[facility] Fqboqkmhem7390 [place] [phone]. Farhat Leal CULTURE OTHER Normal [facility] Comment on above: Performed By: #### O THCX ####[facility] Uefgeecpdw055[address] [place], [place] [address]Dr. Farhat Leal PROF 14(COMP METB)on 022 Albumin [Mass/Vol] 1.4 g/dL Critically low 3.4-5.0 [facility] Comment on above: Performed By: #### C MP, BNP, CRP ####[facility] Skvrsgchtc1397 [place] [address]Dr. Farhat Leal Albumin/Globulin [Mass ratio] 0.4 {ratio} Normal [facility] Comment on above: Performed By: #### C MP, BNP, CRP ####[facility] Pvjtcxvbbz2026 [place] [address]Dr. Farhat Leal ALP [Catalytic activity/Vol] 82 U/L Normal 46-116 [facility] Comment on above: Performed By: #### C MP, BNP, CRP ####[facility] Ylyxlbpias5069 [place] [address]Dr. Farhat Leal ALT [Catalytic activity/Vol] 20 U/L Normal 16-63 [facility] Comment on above: Performed By: #### C MP, BNP, CRP ####[facility] Dolulkdajz900[address] [place], [place] [address]Dr. Farhat Leal Anion gap [Moles/Vol] 13.0 mmol/L Normal [facility] Comment on above: Performed By: #### C MP, BNP, CRP ####[facility] Izpywnmeax56119[address] [place], [place] [address]Dr. Farhat Leal AST [Catalytic activity/Vol] 33 U/L Normal 15-37 [facility] Comment on above: Performed By: #### C MP, BNP, CRP ####[facility] Nbmzhukxow9904[address] [place], [place] [address]Dr. Farhat Leal Bilirubin [Mass/Vol] 0.7 mg/dL Normal 0.2-1.0 [facility] Comment on above: Performed By: #### C MP, BNP, CRP ####[facility] Bhjchngquf05299[address] [place], [place] [address]Dr. Farhat Leal Calcium [Mass/Vol] 8.4 mg/dL Critically low 8.5-10.1 [facility] Comment on above: Performed By: #### C MP, BNP, CRP ####[facility] Vccscbpejn325[address] [place], [place] [address]Dr. Farhat Leal Chloride [Moles/Vol] 100 mmol/L Normal 98-107 [facility] Comment on above: Performed By: #### C MP, BNP, CRP ####[facility] Faosponrly3680 [place] [address]Dr. Farhat Leal CO2 [Moles/Vol] 23.7 mmol/L Normal 21.0-32.[address] [facility] Comment on above: Performed By: #### C MP, BNP, CRP ####[facility] Aalfwqbsqp7438 [place] [address]Dr. Farhat Leal Creatinine [Mass/Vol] 1.70 mg/dL Critically high 0.70-1.30 [facility] Comment on above: Performed By: #### C MP, BNP, CRP ####[facility] Tbfnokvxpd35119[address] [place], [place] [address]Dr. Farhat Leal EGFR-AF [place] 48 mL/min/1.73m2 Critically low >=60 [facility] Comment on above: Performed By: #### C MP, BNP, CRP ####[facility] Qlhlhkawol[address] [place], [place] [address]Dr. Farhat Leal EGFR-NON AF [place] 39 mL/min/1.73m2 Critically low >=60 [facility] Comment on above: Performed By: #### C MP, BNP, CRP ####[facility] Grgsqtwmbj4933[address] [place], [place] [address]Dr. Farhat Leal Globulin (S) [Mass/Vol] 3.6 g/dL Normal [facility] Comment on above: Performed By: #### C MP, BNP, CRP ####[facility] Uthlmkqebd7640 [place] [address]Dr. Farhat Leal Glucose [Mass/Vol] 232 mg/dL Critically high 74-106 T [facility] Comment on above: Performed By: #### C MP, BNP, CRP ####[facility] Mmmubfhnmd48[address] [place], [place] [address]Dr. Farhat Leal Potassium [Moles/Vol] 3.7 mmol/L Normal 3.5-5.1 [facility] Comment on above: Performed By: #### C MP, BNP, CRP ####[facility] Zhayqepmgs3077 [place] [address]Dr. Farhat Leal Protein [Mass/Vol] 5.0 g/dL Critically low 6.4-8.2 [facility] Comment on above: Performed By: #### C MP, BNP, CRP ####[facility] Jodtprdnir9199 [place] [address]Dr. Farhat Leal Sodium [Moles/Vol] 133 mmol/L Critically low 136-145 [facility] Comment on above: Performed By: #### C MP, BNP, CRP ####[facility] Tmhptwdygu3211 [place] [address]Dr. Farhat Leal Urea nitrogen [Mass/Vol] 52.0 mg/dL Critically high 7.0-18.0 [facility] Comment on above: Performed By: #### C MP, BNP, CRP ####[facility] Ifspbrxaaa526[address] [place], [place] [address]Dr. Farhat Leal Urea nitrogen/Creatinine [Mass ratio] 30.6 mg/mg Normal [facility] Comment on above: Performed By: #### C MP, BNP, CRP ####[facility] Tdrgmdfpwg4829 [place] [address]Dr. Farhat Leal PROTIMEon 11-28-2021 INR Coag (PPP) [Relative time] 1.29 {INR} Normal [facility] Comment on above: Performed By: #### P T ####[facility] Rwxxzmmcsd2426[address] [place], [place] [address]Dr. Farhat Leal INR GUIDELINES SEE BELOW Normal [facility] Comment on above: Result Comment: MALINA RED INR: 2.0 - 3.0 CONDITIONS NOT LISTED BELOW 2.5 - 3.5 FOR PROSTHETIC HEART VALVE REPLACEMENT 2.5 - 3.5 RECURRENT THROMBOSIS Performed By: #### P T ####[facility] Mboynkiace[address] [place], [place] [address]Dr. Farhat Leal PT Coag (PPP) [Time] 13.7 s Critically high 9.0-11.6 [facility] Comment on above: Performed By: #### P T ####[facility] Wskobujgqn7312[address] [place], [place] [address]Dr. Farhat Leal SED RATE WESTERGRENon 2021 SED RATE 77 mm/hr Critically high <=20 [facility] Comment on above: Performed By: #### S EDR ####[facility] Dyncyluvuz89399[address] [place], [place] [address]Dr. Farhat Leal XR CHEST 2 Von 11-28-2021 XR CHEST 2 V Normal [facility] BNPon 11-27-2021 Natriuretic peptide B (Bld) [Mass/Vol] 72182.0 pg/mL Critically high <=1,800.0 [facility] Comment on above: Performed By: #### B CONCRETE POURING SUPERVISOR, CMP, CRP ####[facility] Tnontgwkad557[address] [place], [place] [address]Dr. Farhat Leal CBC AUTO DIFFon 11-27-2021 BASO # 0.0 103/ul Normal 0.0-0.1 [facility] Comment on above: Performed By: #### C BC ####[facility] Ypegbgqtfv0124[address] [place], [place] [address]Dr. Farhat Leal Basophils/100 WBC (Bld) 0.2 % Normal 0.2-2.0 [facility] Comment on above: Performed By: #### C BC ####[facility] Cokgujvuwd099[address] [place], [place] [address]Dr. Farhat Leal EO # 0.2 103/ul Normal 0.0-0.7 [facility] Comment on above: Performed By: #### C BC ####[facility] Htfnppqlzb932[address] [place], [place] [address]Dr. Farhat Leal Eosinophils/100 WBC (Bld) 1.9 % Normal 0.9-7.0 [facility] Comment on above: Performed By: #### C BC ####[facility] Zvclaubwnd75[address] [place], [place] [address]Dr. Farhat Leal Erythrocyte distribution width (RBC) [Ratio] 13.9 % Normal 11.0-15.0 [facility] Comment on above: Performed By: #### C BC ####[facility] Jketvrbjfm3435[address] [place], [place] [address]DrSkylar Leal Hematocrit (Bld) [Volume fraction] 28.7 % Critically low 42.0-54.0 [facility] Comment on above: Performed By: #### C BC ####[facility] Riyixvjkls4482 [place] [address]DrSkylar Leal Hemoglobin (Bld) [Mass/Vol] 9.3 g/dL Critically low 14.0-18.0 [facility] Comment on above: Performed By: #### C BC ####[facility] Btqoyexotr9544 [place] [address]DrSkylar Leal IG # 0.14 10e3/ul Critically high 0.00-0.03 [facility] Comment on above: Performed By: #### C BC ####[facility] Hsxcemduva0118 [place] [address]DrSkylar Leal IG % 1.2 % Critically high 0.0-0.5 [facility] Comment on above: Performed By: #### C BC ####[facility] Mlrvvxqoej[address] [place], [place] [address]DrSkylar Leal LYMPH # 1.1 103/ul Critically low 1.2-3.8 [facility] Comment on above: Performed By: #### C BC ####[facility] Apelbllaoe7906 [place] [address]DrSkylar Leal Lymphocytes/100 WBC (Bld) 9.4 % Critically low 20.5-60.0 [facility] Comment on above: Performed By: #### C BC ####[facility] Oajdocfsiz7639 [place] [address]DrSkylar Leal MANUAL DIFF REQ NO Normal [facility] Comment on above: Performed By: #### C BC ####[facility] Mucillowbg[address] [place], [place] [address]DrSkylar Leal MCH (RBC) [Entitic mass] 29.7 pg Normal 25.9-34.0 [facility] Comment on above: Performed By: #### C BC ####[facility] Azwouptrqf348[address] [place], [place] [address]DrSkylar Leal MCHC (RBC) [Mass/Vol] 32.4 g/dL Normal 29.9-35.2 [facility] Comment on above: Performed By: #### C BC ####[facility] Sutnbwkuqo[address] [place] [id number]. Farhat Leal MCV (RBC) [Entitic vol] 91.7 fL Normal 80.0-94.0 [facility] Comment on above: Performed By: #### C BC ####[facility] Frcfohnvmf9173 [place] [address]Dr. Farhat Elvis MONO # 1.1 103/ul Critically high 0.3-0.8 [facility] Comment on above: Performed By: #### C BC ####[facility] Wtzeolshdt3498 [place] [address]Dr. Madelynlorri Leal Monocytes/100 WBC (Bld) 9.7 % Normal 1.7-12.0 [facility] Comment on above: Performed By: #### C BC ####[facility] K[address]enjnygk[address] [place], [place] [address]Dr. Farhat Leal NEUT # 9.2 103/ul Critically high 1.4-6.5 [facility] Comment on above: Performed By: #### C BC ####[facility] Sktetbepkd[address] [place], [place] [address]Dr. Farhat Elvis Neutrophils/100 WBC (Bld) 77.6 % Critically high 43.0-75.0 [facility] Comment on above: Performed By: #### C BC ####[facility] Ltikkqnlff3654 [place] [address]Dr. Farhat Elvis Platelet mean volume (Bld) [Entitic vol] 9.5 fL Normal 9.5-13.5 [facility] Comment on above: Performed By: #### C BC ####[facility] Lqafzogdur9510 [place] [address]Dr. Madelynlorri Elvis PLT 375 103/ul Normal 150-450 [facility] Comment on above: Performed By: #### C BC ####[facility] Nxhktsqish5360 [place] [address]Dr. Farhat Leal RBC 3.13 106/ul Critically low 4.70-6.10 [facility] Comment on above: Performed By: #### C BC ####[facility] Yjmmpffbzr9040 [place] [id number]. Farhat Leal WBC 11.8 103/ul Critically high 4.0-11.[address] [facility] Comment on above: Performed By: #### C BC ####[facility] Vzcpuloanb4296 [place] [address]Dr. Farhat Leal CRPon 11-27-2021 CRP 24.5 mg/dL Critically high <=1.0 [facility] Comment on above: Performed By: #### B CONCRETE POURING SUPERVISOR, CMP, CRP ####[facility] Xarqmjdkyd7240 [place] [address]Dr. Farhat Leal CULTURE OTHERon 11-27-2021 CULTURE OTHER Normal [facility] Comment on above: Performed By: #### O THCX ####[facility] Izgolffpjl74[address] [place] [address]Dr. Farhat Leal CULTURE OTHER Normal [facility] Comment on above: Performed By: #### O THCX ####[facility] Nenblfdrup7[address] [place] [address]Dr. Farhat Leal CULTURE WOUNDon 11-27-2021 CULTURE WOUND Normal [facility] Comment on above: Performed By: #### W OUNDCX ####[facility] Sizhqeobvw26[address] [place] [address]Dr. Farhat Leal POINT OF CARE GLUCOSEon 11-15 Glucose [Mass/Vol] 147 mg/dL Critically high 74-106 [facility] Comment on above: Performed By: #### P OCGLUC ####[facility] Enfozenamq7154 [place] [address]Dr. Farhat Leal PROF 14(COMP METB)on 022 Albumin [Mass/Vol] 1.4 g/dL Critically low 3.4-5.0 [facility] Comment on above: Performed By: #### B CONCRETE POURING SUPERVISOR, CMP, CRP ####[facility] Drepwcwnhg3546 [place] [address]Dr. Farhat Leal Albumin/Globulin [Mass ratio] 0.4 {ratio} Normal [facility] Comment on above: Performed By: #### B CONCRETE POURING SUPERVISOR, CMP, CRP ####[facility] Txnawhryug9408 [place] [address]Dr. Farhat Leal ALP [Catalytic activity/Vol] 82 U/L Normal 46-116 [facility] Comment on above: Performed By: #### B CONCRETE POURING SUPERVISOR, CMP, CRP ####[facility] Njbmjfmhvq2978 [place] [address]Dr. Farhat Leal ALT [Catalytic activity/Vol] 22 U/L Normal 16-63 [facility] Comment on above: Performed By: #### B CONCRETE POURING SUPERVISOR, CMP, CRP ####[facility] Hkbhymwijy4386 [place] [address]Dr. Farhat Leal Anion gap [Moles/Vol] 14.2 mmol/L Normal [facility] Comment on above: Performed By: #### B CONCRETE POURING SUPERVISOR, CMP, CRP ####[facility] Bzhtyechtm[address] [place], [place] [address]Dr. Farhat Leal AST [Catalytic activity/Vol] 35 U/L Normal 15-37 [facility] Comment on above: Performed By: #### B CONCRETE POURING SUPERVISOR, CMP, CRP ####[facility] Cnifpdbkps[address] [place], [place] [address]Dr. Farhat Leal Bilirubin [Mass/Vol] 0.7 mg/dL Normal 0.2-1.0 [facility] Comment on above: Performed By: #### B CONCRETE POURING SUPERVISOR, CMP, CRP ####[facility] Qfpvbajhiq832[address] [place], [place] [address]Dr. Farhat Leal Calcium [Mass/Vol] 8.2 mg/dL Critically low 8.5-10.1 [facility] Comment on above: Performed By: #### B CONCRETE POURING SUPERVISOR, CMP, CRP ####[facility] Mncqlpxpza09[address] [place], [place] [address]Dr. Farhat Leal Chloride [Moles/Vol] 99 mmol/L Normal 98-107 [facility] Comment on above: Performed By: #### B CONCRETE POURING SUPERVISOR, CMP, CRP ####[facility] Zsnnerfvqi7297 [place] [address]Dr. Farhat Leal CO2 [Moles/Vol] 22.6 mmol/L Normal 21.0-32.[address] [facility] Comment on above: Performed By: #### B CONCRETE POURING SUPERVISOR, CMP, CRP ####[facility] Qiwihxshzu2647 [place] [address]Dr. Farhat Leal Creatinine [Mass/Vol] 1.73 mg/dL Critically high 0.70-1.30 [facility] Comment on above: Performed By: #### B CONCRETE POURING SUPERVISOR, CMP, CRP ####[facility] Lkdyapkdmh05[address] [place], [place] [address]Dr. Farhat Leal EGFR-AF [place] 47 mL/min/1.73m2 Critically low >=60 [facility] Comment on above: Performed By: #### B CONCRETE POURING SUPERVISOR, CMP, CRP ####[facility] Prmiaoetwn64[address] [place], [place] [address]Dr. Farhat Leal EGFR-NON AF [place] 38 mL/min/1.73m2 Critically low >=60 [facility] Comment on above: Performed By: #### B CONCRETE POURING SUPERVISOR, CMP, CRP ####[facility] Khqbhdrlkw74[address] [place], [place] [address]Dr. Farhat Leal Globulin (S) [Mass/Vol] 3.7 g/dL Normal [facility] Comment on above: Performed By: #### B CONCRETE POURING SUPERVISOR, CMP, CRP ####[facility] Rkivsektub9858 [place] [address]Dr. Farhat Leal Glucose [Mass/Vol] 220 mg/dL Critically high 74-106 [facility] Comment on above: Performed By: #### B CONCRETE POURING SUPERVISOR, CMP, CRP ####[facility] Bqrbigohkx[address] [place], [place] [address]Dr. Farhat Leal Potassium [Moles/Vol] 3.8 mmol/L Normal 3.5-5.1 [facility] Comment on above: Performed By: #### B CONCRETE POURING SUPERVISOR, CMP, CRP ####[facility] Chpaebyoyd65[address] [place], [place] [address]Dr. Farhat Leal Protein [Mass/Vol] 5.1 g/dL Critically low 6.4-8.2 [facility] Comment on above: Performed By: #### B CONCRETE POURING SUPERVISOR, CMP, CRP ####[facility] Eyjnslfnet7217 [place] [address]Dr. Farhat Leal Sodium [Moles/Vol] 132 mmol/L Critically low 136-145 [facility] Comment on above: Performed By: #### B CONCRETE POURING SUPERVISOR, CMP, CRP ####[facility] Ljexumpfbl9140 [place] [address]Dr. Farhat Leal Urea nitrogen [Mass/Vol] 49.0 mg/dL Critically high 7.0-18.0 [facility] Comment on above: Performed By: #### B CONCRETE POURING SUPERVISOR, CMP, CRP ####[facility] Sigvniupko5671 [place] [address]Dr. Farhat Leal Urea nitrogen/Creatinine [Mass ratio] 28.3 mg/mg Normal [facility] Comment on above: Performed By: #### B CONCRETE POURING SUPERVISOR, CMP, CRP ####[facility] Tuqrpudfcz9143 [place] [address]Dr. Farhat Leal PROTIMEon 11-27-2021 INR Coag (PPP) [Relative time] 1.25 {INR} Normal [facility] Comment on above: Performed By: #### P T ####[facility] Pnyxfpbenz15[address] [place] [address]Dr. Farhat Leal INR GUIDELINES SEE BELOW Normal [facility] Comment on above: Result Comment: MALINA RED INR: 2.0 - 3.0 CONDITIONS NOT LISTED BELOW 2.5 - 3.5 FOR PROSTHETIC HEART VALVE REPLACEMENT 2.5 - 3.5 RECURRENT THROMBOSIS Performed By: #### P T ####[facility] Hqfreguulw[address] [place], [place] [address]Dr. Farhat Leal PT Coag (PPP) [Time] 13.3 s Critically high 9.0-11.6 [facility] Comment on above: Performed By: #### P T ####[facility] Vdanvwlvqk[address] [place], [place] [address]Dr. Farhat Leal SED RATE WESTERGRENon 2021 SED RATE 60 mm/hr Critically high <=20 [facility] Comment on above: Performed By: #### S EDR ####[facility] Bmktausbdl2774 [place] [address]Dr. Farhat Leal VANCOMYCIN TROUGHon 11-28-19 VANCOMYCIN TROUGH 21.2 ug/ml Critically high 5.0-20.0 [facility] Comment on above: Performed By: #### V ANCT ####[facility] Xyadkeobjp38[address] [place], [place] [address]Dr. Farhat Leal XR CHEST 1 Von 11-27-2021 XR CHEST 1 V Normal [facility] BNPon 11-26-2021 Natriuretic peptide B (Bld) [Mass/Vol] 50723.0 pg/mL Critically high <=1,800.0 [facility] Comment on above: Performed By: #### B CONCRETE POURING SUPERVISOR, CRP, CMP ####[facility] Dcarfbqivd395[address] [place], [place] [address]Dr. Farhat Lela CBC AUTO DIFFon 11-26-2021 BASO # 0.0 103/ul Normal 0.0-0.1 [facility] Comment on above: Performed By: #### C BC ####[facility] Thgnrkfrux128[address] [place], [place] [address]Dr. Farhat Elvis Basophils/100 WBC (Bld) 0.2 % Normal 0.2-2.0 [facility] Comment on above: Performed By: #### C BC ####[facility] Yyftvhzyem12[address] [place], [place] [address]Dr. Farhat Leal EO # 0.0 103/ul Normal 0.0-0.7 [facility] Comment on above: Performed By: #### C BC ####[facility] Oibibwgvoi64[address] [place], [place] [address]Dr. Farhat Elvsi Eosinophils/100 WBC (Bld) 0.3 % Critically low 0.9-7.0 [facility] Comment on above: Performed By: #### C BC ####[facility] Inakaaylcu2901[address] [place], [place] [address]Dr. Farhat Leal Erythrocyte distribution width (RBC) [Ratio] 13.9 % Normal 11.0-15.0 [facility] Comment on above: Performed By: #### C BC ####[facility] Juqbvxxayz9059 [place] [address]Dr. Farhat Leal Hematocrit (Bld) [Volume fraction] 27.3 % Critically low 42.0-54.0 [facility] Comment on above: Performed By: #### C BC ####[facility] Godhhqugzx0026 [place] [address]Dr. Farhat Leal Hemoglobin (Bld) [Mass/Vol] 8.8 g/dL Critically low 14.0-18.0 [facility] Comment on above: Performed By: #### C BC ####[facility] Jvbumabapz5550 [place] [address]Dr. Farhat Leal IG # 0.17 10e3/ul Critically high 0.00-0.03 [facility] Comment on above: Performed By: #### C BC ####[facility] Cydkvktyoa2943 [place] [address]Dr. Farhat Leal IG % 1.2 % Critically high 0.0-0.5 [facility] Comment on above: Performed By: #### C BC ####[facility] Cvvdwzljla6005 [place] [address]Dr. Farhat Leal LYMPH # 0.7 103/ul Critically low 1.2-3.8 [facility] Comment on above: Performed By: #### C BC ####[facility] Gbdqbcdtmi2220 [place] [address]Dr. Farhat Leal Lymphocytes/100 WBC (Bld) 4.8 % Critically low 20.5-60.0 [facility] Comment on above: Performed By: #### C BC ####[facility] Uscyzviztb4003 [place] [address]Dr. Farhat Leal MANUAL DIFF REQ NO Normal [facility] Comment on above: Performed By: #### C BC ####[facility] Bktovtbsvo[address] [place], [place] [address]Dr. Farhat Leal MCH (RBC) [Entitic mass] 29.9 pg Normal 25.9-34.0 [facility] Comment on above: Performed By: #### C BC ####[facility] Ziimpdedmj74[address] [place] [id number]. Farhat Leal MCHC (RBC) [Mass/Vol] 32.2 g/dL Normal 29.9-35.2 [facility] Comment on above: Performed By: #### C BC ####[facility] Vxontdmyqa2914 [place] [address]Dr. Farhat Leal MCV (RBC) [Entitic vol] 92.9 fL Normal 80.0-94.0 [facility] Comment on above: Performed By: #### C BC ####[facility] Rypdwzsldt0544 [place] [address]Dr. Farhat Leal MONO # 1.3 103/ul Critically high 0.3-0.8 [facility] Comment on above: Performed By: #### C BC ####[facility] Htfvalbnfo6177 [place] [address]Dr. Farhat Leal Monocytes/100 WBC (Bld) 9.6 % Normal 1.7-12.0 [facility] Comment on above: Performed By: #### C BC ####[facility] Xvomwzvmsg5386 [place] [address]Dr. Farhat Leal NEUT # 11.4 103/ul Critically high 1.4-6.5 The [facility] Comment on above: Performed By: #### C BC ####[facility] Wvbhdyfxco5007 [place] [id number]. Farhat Elvis Neutrophils/100 WBC (Bld) 83.9 % Critically high 43.0-75.0 [facility] Comment on above: Performed By: #### C BC ####[facility] Kpashtljqv6832 [place] [address]Dr. Farhat Leal Platelet mean volume (Bld) [Entitic vol] 9.6 fL Normal 9.5-13.5 [facility] Comment on above: Performed By: #### C BC ####[facility] Opppnkjnwr0320 [place] [id number]. Farhat Leal PLT 395 103/ul Normal 150-450 [facility] Comment on above: Performed By: #### C BC ####[facility] Shcecummei8606 [place] [id number]. Farhat Leal RBC 2.94 106/ul Critically low 4.70-6.10 [facility] Comment on above: Performed By: #### C BC ####[facility] Tctioffkab6615 [place] [id number]. Farhat Leal WBC 13.6 103/ul Critically high 4.0-11.0 The [facility] Comment on above: Performed By: #### C BC ####[facility] Colmbbvdlm5292 [place] [address]Dr. Farhat Leal CRPon 11-26-2021 CRP [Mass/Vol] mg/L Critically high <=1.0 [facility] Comment on above: Performed By: #### B CONCRETE POURING SUPERVISOR, CRP, CMP ####[facility] Etwncdwlrv5520 [place] [address]Dr. Farhat Leal PROF 14(COMP METB)on 022 Albumin [Mass/Vol] 1.5 g/dL Critically low 3.4-5.0 [facility] Comment on above: Performed By: #### B CONCRETE POURING SUPERVISOR, CRP, CMP ####[facility] Tkwsmubsec2998 [place] [address]Dr. Farhat Leal Albumin/Globulin [Mass ratio] 0.4 {ratio} Normal [facility] Comment on above: Performed By: #### B CONCRETE POURING SUPERVISOR, CRP, CMP ####[facility] Fqwambulhq3810 [place] [address]Dr. Farhat Leal ALP [Catalytic activity/Vol] 88 U/L Normal 46-116 [facility] Comment on above: Performed By: #### B CONCRETE POURING SUPERVISOR, CRP, CMP ####[facility] Vzbvzemxon2754 [place] [address]Dr. Farhat Leal ALT [Catalytic activity/Vol] 29 U/L Normal 16-63 [facility] Comment on above: Performed By: #### B CONCRETE POURING SUPERVISOR, CRP, CMP ####[facility] Vfdsxfdxib6102 [place] [address]Dr. Farhat Leal Anion gap [Moles/Vol] 13.3 mmol/L Normal [facility] Comment on above: Performed By: #### B CONCRETE POURING SUPERVISOR, CRP, CMP ####[facility] Ercswpttck8221 [place] [address]Dr. Farhat Leal AST [Catalytic activity/Vol] 32 U/L Normal 15-37 [facility] Comment on above: Performed By: #### B CONCRETE POURING SUPERVISOR, CRP, CMP ####[facility] Nntnqrxwih11[address] [place], [place] [address]Dr. Farhat Leal Bilirubin [Mass/Vol] 0.6 mg/dL Normal 0.2-1.0 [facility] Comment on above: Performed By: #### B CONCRETE POURING SUPERVISOR, CRP, CMP ####[facility] Nhvmahytzq911[address] [place], [place] [address]Dr. Farhat Leal Calcium [Mass/Vol] 8.0 mg/dL Critically low 8.5-10.1 [facility] Comment on above: Performed By: #### B CONCRETE POURING SUPERVISOR, CRP, CMP ####[facility] Tywewxmuiz7537[address] [place], [place] [address]Dr. Farhat Leal Chloride [Moles/Vol] 98 mmol/L Normal 98-107 [facility] Comment on above: Performed By: #### B CONCRETE POURING SUPERVISOR, CRP, CMP ####[facility] Fezpjcvsbu208[address] [place], [place] [address]Dr. Farhat Leal CO2 [Moles/Vol] 23.7 mmol/L Normal 21.0-32.0 The [facility] Comment on above: Performed By: #### B CONCRETE POURING SUPERVISOR, CRP, CMP ####[facility] Jfgstxdxtw5926[address] [place], [place] [address]Dr. Farhat Leal Creatinine [Mass/Vol] 2.08 mg/dL Critically high 0.70-1.30 [facility] Comment on above: Performed By: #### B CONCRETE POURING SUPERVISOR, CRP, CMP ####[facility] Dgvtqwbhsb2772 [place] [address]Dr. Farhat Leal EGFR-AF [place] 38 mL/min/1.73m2 Critically low >=60 [facility] Comment on above: Performed By: #### B CONCRETE POURING SUPERVISOR, CRP, CMP ####[facility] Pbmbgukwvh4426[address] [place], [place] [address]Dr. Farhat Leal EGFR-NON AF [place] 31 mL/min/1.73m2 Critically low >=60 [facility] Comment on above: Performed By: #### B CONCRETE POURING SUPERVISOR, CRP, CMP ####[facility] Xasgyvwyge107[address] [place], [place] [address]Dr. Farhat Leal Globulin (S) [Mass/Vol] 3.7 g/dL Normal [facility] Comment on above: Performed By: #### B CONCRETE POURING SUPERVISOR, CRP, CMP ####[facility] Sldftxhbun7585[address] [place], [place] [address]Dr. Farhat Lela Glucose [Mass/Vol] 315 mg/dL Critically high 74-106 [facility] Comment on above: Performed By: #### B CONCRETE POURING SUPERVISOR, CRP, CMP ####[facility] Lcvcjtlory[address] [place], [place] [address]Dr. Farhat Leal Potassium [Moles/Vol] 4.0 mmol/L Normal 3.5-5.1 [facility] Comment on above: Performed By: #### B CONCRETE POURING SUPERVISOR, CRP, CMP ####[facility] Joopazssji3860[address] [place], [place] [address]Dr. Farhat Leal Protein [Mass/Vol] 5.2 g/dL Critically low 6.4-8.2 [facility] Comment on above: Performed By: #### B CONCRETE POURING SUPERVISOR, CRP, CMP ####[facility] Mzxcxbvuqo26[address] [place], [place] [address]Dr. Farhat Leal Sodium [Moles/Vol] 131 mmol/L Critically low 136-145 [facility] Comment on above: Performed By: #### B CONCRETE POURING SUPERVISOR, CRP, CMP ####[facility] Rxelvrcips338[address] [place], [place] [address]Dr. Madelynlorri Leal Urea nitrogen [Mass/Vol] 50.0 mg/dL Critically high 7.0-18.0 [facility] Comment on above: Performed By: #### B CONCRETE POURING SUPERVISOR, CRP, CMP ####[facility] Dptqgghzvx87[address] [place], [place] [address]Dr. Farhat Leal Urea nitrogen/Creatinine [Mass ratio] 24.0 mg/mg Normal [facility] Comment on above: Performed By: #### B CONCRETE POURING SUPERVISOR, CRP, CMP ####[facility] Xgxumlzaom474[address] [place], [place] [address]Dr. Farhat Leal PROTIMEon 11-26-2021 INR Coag (PPP) [Relative time] 1.31 {INR} Normal [facility] Comment on above: Performed By: #### P T ####[facility] Fniplhxuwg[address] [place], [place] [address]Dr. Farhat Leal INR GUIDELINES SEE BELOW Normal [facility] Comment on above: Result Comment: MALINA RED INR: 2.0 - 3.0 CONDITIONS NOT LISTED BELOW 2.5 - 3.5 FOR PROSTHETIC HEART VALVE REPLACEMENT 2.5 - 3.5 RECURRENT THROMBOSIS Performed By: #### P T ####[facility] Hznlwmogru4087[address] [place], [place] [address]Dr. Farhat Leal PT Coag (PPP) [Time] 13.9 s Critically high 9.0-11.6 [facility] Comment on above: Performed By: #### P T ####[facility] Eowysvdqpl130[address] [place], [place] [address]Dr. Farhat Leal SED RATE WESTERGRENon 2021 SED RATE 87 mm/hr Critically high <=20 [facility] Comment on above: Performed By: #### S EDR ####[facility] Sgoetnmemx[address] [place], [place] [address]Dr. Farhat Leal BNPon 11-25-2021 Natriuretic peptide B (Bld) [Mass/Vol] 63456.0 pg/mL Critically high <=1,800.0 [facility] Comment on above: Performed By: #### C MP, BNP, CRP ####[facility] Ieipevpoom8[address] [place], [place] [address]Dr. Farhat Leal CBC AUTO DIFFon 11-25-2021 BASO # 0.0 103/ul Normal 0.0-0.1 [facility] Comment on above: Performed By: #### C BC ####[facility] Mwcaloeujc9797 [place] [address]Dr. Farhat Leal Basophils/100 WBC (Bld) 0.4 % Normal 0.2-2.0 [facility] Comment on above: Performed By: #### C BC ####[facility] Eboxqwzplz654[address] [place], [place] [address]Dr. Farhat Leal EO # 0.1 103/ul Normal 0.0-0.7 [facility] Comment on above: Performed By: #### C BC ####[facility] Jozyizidsf227[address] [place], [place] [address]Dr. Farhat Leal Eosinophils/100 WBC (Bld) 1.2 % Normal 0.9-7.0 [facility] Comment on above: Performed By: #### C BC ####[facility] Binpeykigi728[address] [place], [place] [address]Dr. Farhat Leal Erythrocyte distribution width (RBC) [Ratio] 13.7 % Normal 11.0-15.0 [facility] Comment on above: Performed By: #### C BC ####[facility] Kyraathwqw[address] [place], [place] [address]Dr. Farhat Leal Hematocrit (Bld) [Volume fraction] 29.6 % Critically low 42.0-54.0 [facility] Comment on above: Performed By: #### C BC ####[facility] Tdbrdqmzyq66[address] [place], [place] [address]Dr. Farhat Leal Hemoglobin (Bld) [Mass/Vol] 9.3 g/dL Critically low 14.0-18.0 [facility] Comment on above: Performed By: #### C BC ####[facility] Qiblxeuyrm[address] [place], [place] [address]Dr. Farhat Leal IG # 0.15 10e3/ul Critically high 0.00-0.03 [facility] Comment on above: Performed By: #### C BC ####[facility] Iolthwwgih84[address] [place], [place] [address]Dr. Farhat Leal IG % 1.4 % Critically high 0.0-0.5 [facility] Comment on above: Performed By: #### C BC ####[facility] Eyihqwjrym5779 [place] [address]Dr. Farhat Leal LYMPH # 0.8 103/ul Critically low 1.2-3.8 [facility] Comment on above: Performed By: #### C BC ####[facility] Pyjgxhpkla4505 [place] [address]Dr. Farhat Leal Lymphocytes/100 WBC (Bld) 7.3 % Critically low 20.5-60.0 [facility] Comment on above: Performed By: #### C BC ####[facility] Zamyxxrlxn4760 [place] [address]Dr. Farhat Leal MANUAL DIFF REQ NO Normal [facility] Comment on above: Performed By: #### C BC ####[facility] Mehqubdynt9727 [place] [address]Dr. Farhat Elvis MCH (RBC) [Entitic mass] 29.3 pg Normal 25.9-34.0 [facility] Comment on above: Performed By: #### C BC ####[facility] Ojqfsvtlwj4069 [place] [address]Dr. Farhat Elvis MCHC (RBC) [Mass/Vol] 31.4 g/dL Normal 29.9-35.2 [facility] Comment on above: Performed By: #### C BC ####[facility] Lfigipfokp3358 [place] [address]Dr. Farhat Leal MCV (RBC) [Entitic vol] 93.4 fL Normal 80.0-94.0 [facility] Comment on above: Performed By: #### C BC ####[facility] Jxylzlfuaj9695 [place] [address]Dr. Farhat Leal MONO # 1.3 103/ul Critically high 0.3-0.8 [facility] Comment on above: Performed By: #### C BC ####[facility] Hxdouzdpbx7059 [place] [address]Dr. Farhat Leal Monocytes/100 WBC (Bld) 12.3 % Critically high 1.7-12.0 [facility] Comment on above: Performed By: #### C BC ####[facility] Xkzuhpftqo4391 [place] [address]Dr. Farhat Leal NEUT # 8.4 103/ul Critically high 1.4-6.5 [facility] Comment on above: Performed By: #### C BC ####[facility] Qdmkjeovds1189 [place] [address]Dr. Farhat Leal Neutrophils/100 WBC (Bld) 77.4 % Critically high 43.0-75.0 [facility] Comment on above: Performed By: #### C BC ####[facility] Tqvggfzrrq1267 [place] [address]Dr. Farhat Leal Platelet mean volume (Bld) [Entitic vol] 9.8 fL Normal 9.5-13.5 [facility] Comment on above: Performed By: #### C BC ####[facility] Fhmtoxsiok1407 [place] [address]Dr. Farhat Leal PLT 390 103/ul Normal 150-450 [facility] Comment on above: Performed By: #### C BC ####[facility] Lhzzvijnzh5760 [place] [address]Dr. Farhat Leal RBC 3.17 106/ul Critically low 4.70-6.10 [facility] Comment on above: Performed By: #### C BC ####[facility] Kfuaipkgua0415 [place] [address]Dr. Farhat Leal WBC 10.9 103/ul Normal 4.0-11.0 [facility] Comment on above: Performed By: #### C BC ####[facility] Bklrzkvrtk2509 [place] [address]Dr. Farhat Leal CRPon 11-25-2021 CRP 27.2 mg/dL Critically high <=1.0 [facility] Comment on above: Performed By: #### C MP, BNP, CRP ####[facility] Xbdhnxcxfe0162 [place] [address]Dr. Farhat Leal PROF 14(COMP METB)on 022 Albumin [Mass/Vol] 1.5 g/dL Critically low 3.4-5.0 [facility] Comment on above: Performed By: #### C MP, BNP, CRP ####[facility] Gamxvagmpf5152 [place] [address]Dr. Farhat Leal Albumin/Globulin [Mass ratio] 0.4 {ratio} Normal [facility] Comment on above: Performed By: #### C MP, BNP, CRP ####[facility] Hggnteocpq6862 [place] [address]Dr. Farhat Leal ALP [Catalytic activity/Vol] 86 U/L Normal 46-116 [facility] Comment on above: Performed By: #### C MP, BNP, CRP ####[facility] [id number] [place], [place] [address]Dr. Farhat Leal ALT [Catalytic activity/Vol] 34 U/L Normal 16-63 [facility] Comment on above: Performed By: #### C MP, BNP, CRP ####[facility] [address] [place], [place] [address]Dr. Farhat Leal Anion gap [Moles/Vol] 17.8 mmol/L Normal [facility] Comment on above: Performed By: #### C MP, BNP, CRP ####[facility] [id number] [place], [place] [address]Dr. Farhat Leal AST [Catalytic activity/Vol] 48 U/L Critically high 15-37 [facility] Comment on above: Performed By: #### C MP, BNP, CRP ####[facility] [address] [place] [address]Dr. Farhat Leal Bilirubin [Mass/Vol] 0.8 mg/dL Normal 0.2-1.0 [facility] Comment on above: Performed By: #### C MP, BNP, CRP ####[facility] [address] [place], [place] [address]Dr. Farhat Leal Calcium [Mass/Vol] 8.3 mg/dL Critically low 8.5-10.1 [facility] Comment on above: Performed By: #### C MP, BNP, CRP ####[facility] Izspvfjpbt00[address] [place] [address]Dr. Farhat Leal Chloride [Moles/Vol] 97 mmol/L Critically low 98-107 [facility] Comment on above: Performed By: #### C MP, BNP, CRP ####[facility] Lhsjyjtqqb3159 [place] [address]Dr. Farhat Leal CO2 [Moles/Vol] 23.0 mmol/L Normal 21.0-32.[address] [facility] Comment on above: Performed By: #### C MP, BNP, CRP ####[facility] Kmbledwexq[address] [place], [place] [address]Dr. Farhat Leal Creatinine [Mass/Vol] 1.68 mg/dL Critically high 0.70-1.30 [facility] Comment on above: Performed By: #### C MP, BNP, CRP ####[facility] Wvsjxohijk39[address] [place], [place] [address]Dr. Farhat Leal EGFR-AF [place] 48 mL/min/1.73m2 Critically low >=60 [facility] Comment on above: Performed By: #### C MP, BNP, CRP ####[facility] Thykcrrthy[address] [place], [place] [address]Dr. Farhat Leal EGFR-NON AF [place] 40 mL/min/1.73m2 Critically low >=60 [facility] Comment on above: Performed By: #### C MP, BNP, CRP ####[facility] Tvykqqsxun299[address] [place], [place] [address]Dr. Farhat Leal Globulin (S) [Mass/Vol] 3.9 g/dL Normal [facility] Comment on above: Performed By: #### C MP, BNP, CRP ####[facility] Wjrzstbjxf065[address] [place], [place] [address]Dr. Madelynlorri Leal Glucose [Mass/Vol] 282 mg/dL Critically high 74-106 [facility] Comment on above: Performed By: #### C MP, BNP, CRP ####[facility] Juhqyqvysz5865 [place] [address]Dr. Farhat Leal Potassium [Moles/Vol] 4.8 mmol/L Normal 3.5-5.1 [facility] Comment on above: Performed By: #### C MP, BNP, CRP ####[facility] Pgenwwjroj2364 [place] [address]Dr. Farhat Leal Protein [Mass/Vol] 5.4 g/dL Critically low 6.4-8.2 [facility] Comment on above: Performed By: #### C MP, BNP, CRP ####[facility] Dleupkgaqd99[address] [place], [place] [address]Dr. Farhat Leal Sodium [Moles/Vol] 133 mmol/L Critically low 136-145 [facility] Comment on above: Performed By: #### C MP, BNP, CRP ####[facility] Jqixyenulj37[address] [place], [place] [address]Dr. Farhat Leal Urea nitrogen [Mass/Vol] 40.0 mg/dL Critically high 7.0-18.0 [facility] Comment on above: Performed By: #### C MP, BNP, CRP ####[facility] Kmsjvazqqh500[address] [place], [place] [address]Dr. Farhat Leal Urea nitrogen/Creatinine [Mass ratio] 23.8 mg/mg Normal [facility] Comment on above: Performed By: #### C MP, BNP, CRP ####[facility] Tjqqodnshy538[address] [place], [place] [address]Dr. Farhat Leal PROTIMEon 11-25-2021 INR Coag (PPP) [Relative time] 1.48 {INR} Normal [facility] Comment on above: Performed By: #### P T ####[facility] Sgmwpttpwt[address] [place], [place] [address]Dr. Farhat Leal INR GUIDELINES SEE BELOW Normal [facility] Comment on above: Result Comment: MALINA RED INR: 2.0 - 3.0 CONDITIONS NOT LISTED BELOW 2.5 - 3.5 FOR PROSTHETIC HEART VALVE REPLACEMENT 2.5 - 3.5 RECURRENT THROMBOSIS Performed By: #### P T ####[facility] Igokojybop33[address] [place], [place] [address]Dr. Madelynlorri Leal PT Coag (PPP) [Time] 15.6 s Critically high 9.0-11.6 [facility] Comment on above: Performed By: #### P T ####[facility] Khupjbkwjc1131 [place] [address]Dr. Farhat Elvis SED RATE WESTERGRENon 2021 SED RATE 76 mm/hr Critically high <=20 [facility] Comment on above: Performed By: #### S EDR ####[facility] Dglftitmfu0775 [place] [address]Dr. Farhat Elvis BNPon 11-24-2021 Natriuretic peptide B (Bld) [Mass/Vol] 81887.0 pg/mL Critically high <=1,800.0 [facility] Comment on above: Performed By: #### B CONCRETE POURING SUPERVISOR, CMP, CRP ####[facility] Whyhviovhh1090 [place] [address]Dr. Madelynlorri Leal CBC AUTO DIFFon 11-24-2021 BASO # 0.0 103/ul Normal 0.0-0.1 [facility] Comment on above: Performed By: #### C BC ####[facility] Bbozctesdc[address] [place] [address]Dr. Farhat Leal Basophils/100 WBC (Bld) 0.3 % Normal 0.2-2.0 [facility] Comment on above: Performed By: #### C BC ####[facility] Wgwcwdhvut9172 [place] [address]Dr. Farhat Leal EO # 0.2 103/ul Normal 0.0-0.7 [facility] Comment on above: Performed By: #### C BC ####[facility] Pwvghgholb1194 [place] [address]Dr. Farhat Leal Eosinophils/100 WBC (Bld) 1.2 % Normal 0.9-7.0 [facility] Comment on above: Performed By: #### C BC ####[facility] Oogoxvjncz1607 [place] [address]Dr. Farhat Leal Erythrocyte distribution width (RBC) [Ratio] 13.5 % Normal 11.0-15.0 [facility] Comment on above: Performed By: #### C BC ####[facility] Gdmexacvcn1048 [place] [address]DrSkylar Leal Hematocrit (Bld) [Volume fraction] 31.1 % Critically low 42.0-54.0 [facility] Comment on above: Performed By: #### C BC ####[facility] Yxdxbwyqyw6722 [place] [address]DrSkylar Leal Hemoglobin (Bld) [Mass/Vol] 10.0 g/dL Critically low 14.0-18.0 [facility] Comment on above: Performed By: #### C BC ####[facility] Liqsykvnio9[address] [place], [place] [address]DrSkylar Leal IG # 0.13 10e3/ul Critically high 0.00-0.03 [facility] Comment on above: Performed By: #### C BC ####[facility] Nufkfsqhzs05[address] [place], [place] [address]DrSkylar Leal IG % 1.0 % Critically high 0.0-0.5 [facility] Comment on above: Performed By: #### C BC ####[facility] Qnwmyrggdq9030[address] [place], [place] [address]DrSkylar Leal LYMPH # 0.7 103/ul Critically low 1.2-3.8 [facility] Comment on above: Performed By: #### C BC ####[facility] Vpfewsdycl501[address] [place], [place] [address]DrSkylar Leal Lymphocytes/100 WBC (Bld) 4.9 % Critically low 20.5-60.0 [facility] Comment on above: Performed By: #### C BC ####[facility] Fuxfcuczpe428[address] [place], [place] [address]DrSkylar Leal MANUAL DIFF REQ NO Normal [facility] Comment on above: Performed By: #### C BC ####[facility] Vslplpitfr08[address] [place], [place] [address]DrSkylar Leal MCH (RBC) [Entitic mass] 29.6 pg Normal 25.9-34.0 [facility] Comment on above: Performed By: #### C BC ####[facility] Seqhyzakvx4990 [place] [address]DrSkylar Leal MCHC (RBC) [Mass/Vol] 32.2 g/dL Normal 29.9-35.2 [facility] Comment on above: Performed By: #### C BC ####[facility] Emezlxubbp6779 [place] [address]DrSkylar Leal MCV (RBC) [Entitic vol] 92.0 fL Normal 80.0-94.0 [facility] Comment on above: Performed By: #### C BC ####[facility] Clbkyrgtgo0116[address] [place], [place] [address]DrSkylar Leal MONO # 1.3 103/ul Critically high 0.3-0.8 [facility] Comment on above: Performed By: #### C BC ####[facility] Vtcstoghki4030[address] [place], [place] [address]DrSkylar Leal Monocytes/100 WBC (Bld) 9.6 % Normal 1.7-12.0 [facility] Comment on above: Performed By: #### C BC ####[facility] Gbhkkdtesh7837[address] [place], [place] [address]DrSkylar Leal NEUT # 11.2 103/ul Critically high 1.4-6.5 The [facility] Comment on above: Performed By: #### C BC ####[facility] Hyscxkbldc670[address] [place], [place] [address]DrSkylar Leal Neutrophils/100 WBC (Bld) 83.0 % Critically high 43.0-75.0 [facility] Comment on above: Performed By: #### C BC ####[facility] Xbdmhkezdx633[address] [place], [place] [address]DrSkylar Leal Platelet mean volume (Bld) [Entitic vol] 9.5 fL Normal 9.5-13.5 [facility] Comment on above: Performed By: #### C BC ####[facility] Htyhrrptcl76[address] [place], [place] [address]Dr. Farhat Leal PLT 395 103/ul Normal 150-450 [facility] Comment on above: Performed By: #### C BC ####[facility] Scqpplfjwr5293 [place] [id number]. Farhat Leal RBC 3.38 106/ul Critically low 4.70-6.10 [facility] Comment on above: Performed By: #### C BC ####[facility] Oduziurdpe8894 [place] [id number]. Farhat Leal WBC 13.4 103/ul Critically high 4.0-11.0 The [facility] Comment on above: Performed By: #### C BC ####[facility] Sabsicfsmm3506 [place] [phone]. Farhat Leal CRPon 11-24-2021 CRP 27.8 mg/dL Critically high <=1.0 [facility] Comment on above: Performed By: #### B CONCRETE POURING SUPERVISOR, CMP, CRP ####[facility] Wtxqtxxmii94[address] [place], [place] [id number]. Farhat Leal CULTURE ANAEROBICon 11-25-19 22 CULTURE ANAEROBIC Culture Observations : NO GROWTH OF ANAEROBES AT 72 HOURS. [facility] Comment on above: Performed By: #### A NACX ####[facility] Ivqkqlnkrs4664[address] [place], [place] [id number]. Farhat Leal CULTURE ANAEROBIC Culture Observations : NO GROWTH OF ANAEROBES AT 72 HOURS. [facility] Comment on above: Performed By: #### A NACX ####[facility] Ksaowaasfv1039 [place] [id number]. Farhat Leal CULTURE ANAEROBIC Culture Observations : No growth of anaerobes at 72 hours. [facility] Comment on above: Performed By: #### A NACX ####[facility] Jodeadypoo9[address] [place], [place] [id number]. Farhat Leal CULTURE ANAEROBIC Culture Observations : No growth of anaerobes at 72 hours. [facility] Comment on above: Performed By: #### A NACX ####[facility] Wvvojmsshj4914[address] [place], [place] [id number]. Farhat Leal CULTURE URINEon 11-24-2021 CULTURE URINE Culture Observations : NO GROWTH. Normal [facility] Comment on above: Performed By: #### U RCX ####[facility] Rphyyfybjn192[address] [place], [place] [address]Dr. Farhat Leal ECHOCARDIO M/2D COMPLETEon 1 ECHOCARDIO M/2D COMPLETE Normal [facility] ER URINE PROFILEon Bilirubin Ql (U) Negative Normal NEGATIVE The [facility] Comment on above: Performed By: #### E RUR ####[facility] Sdoissfphd722693 [address] [place], [place] [address]Dr. Farhat Leal Clarity (U) CLEAR Normal CLEAR [facility] Comment on above: Performed By: #### E RUR ####[facility] Cyhihlfqal090[address] [place], [place] [address]Dr. Farhat Leal Color (U) YELLOW Normal YELLOW [facility] Comment on above: Performed By: #### E RUR ####[facility] Xcyqtqjweh6570[address] [place], [place] [address]Dr. Farhat Leal ERUAHD A micrscopic examination will be performed if indicated. Normal [facility] Comment on above: Performed By: #### E RUR ####[facility] Ojfhyvnxqw5547[address] [place], [place] [address]Dr. Madelynlorri Elvis Glucose Ql (U) Negative Normal NEGATIVE [facility] Comment on above: Performed By: #### E RUR ####[facility] Jlobqsiljl1226[address] [place], [place] [address]Dr. Farhat Leal Hemoglobin Ql (U) Negative Normal NEGATIVE The [facility] Comment on above: Performed By: #### E RUR ####[facility] Fzyqbfdxrx451293 [address] [place], [place] [address]Dr. Farhat Leal Ketones Ql (U) TRACE Abnormal NEGATIVE [facility] Comment on above: Performed By: #### E RUR ####[facility] Cujyxiwafu1804[address] [place], [place] [address]Dr. Farhat Leal LEUKOCYTES Negative Normal NEGATIVE [facility] Comment on above: Performed By: #### E RUR ####[facility] Tsuehgormw7320 [place] [address]Dr. Farhat Leal Nitrite Ql (U) Negative Normal NEGATIVE [facility] Comment on above: Performed By: #### E RUR ####[facility] Zkrnqoevqq1185[address] [place], [place] [address]Dr. Farhat Leal pH (U) 5.5 [pH] Normal 5-9 [facility] Comment on above: Performed By: #### E RUR ####[facility] Xbulqbqwqp75119[address] [place], [place] [address]Dr. Farhat Leal SPEC GRAVITY 1.015 Normal 1.005-<=1.02 5 [facility] Comment on above: Performed By: #### E RUR ####[facility] Avvaxjjfnh405[address] [place], [place] [address]Dr. Farhat Leal UA PROTEIN Negative Normal NEGATIVE/ TRACE [facility] Comment on above: Performed By: #### E RUR ####[facility] Hcyzylocud3810[address] [place], [place] [address]Dr. Farhat Leal UR MICRO IND NOT INDICATED Normal [facility] Comment on above: Performed By: #### E RUR ####[facility] Fpkzplhsvp095[address] [place], [place] [address]Dr. Farhat Leal Urobilinogen Qn (U) 0.2 {Boyd'U}/dL Normal 0.2 - 1. 0 [facility] Comment on above: Performed By: #### E RUR ####[facility] Yjrhcnoizy7067[address] [place], [place] [address]Dr. Farhat Leal GRAM STAINon 11-24-2021 DIPHTHEROIDS Normal [facility] Comment on above: Performed By: #### G STAIN ####[facility] Whavtiiunn2567[address] [place], [place] [address]Dr. Farhat Leal EPITHELIALS Normal [facility] Comment on above: Performed By: #### G STAIN ####[facility] Thgbqebjsd489[address] [place], [place] [address]Dr. Farhat Leal FUNGAL ELEMENTS Normal [facility] Comment on above: Performed By: #### G STAIN ####[facility] Unjqqxtmli5755 [place] [id number]. Farhat Leal GRAM NEG BACILLI Normal The [facility] Comment on above: Performed By: #### G STAIN ####[facility] Yqbouataxx3122 [place] [address]Dr. Farhat Leal GRAM NEG DIPPLOCOCCI Normal [facility] Comment on above: Performed By: #### G STAIN ####[facility] Nxymdjzqhx2313 [place] [address]Dr. Farhat Leal GRAM POS BACILLI Normal The [facility] Comment on above: Performed By: #### G STAIN ####[facility] Wnyluiguxn4080[address] [place], [place] [address]Dr. Farhat Leal GRAM POSITIVE COCCI FEW Normal The [facility] Comment on above: Performed By: #### G STAIN ####[facility] Jnjkwucwha925[address] [place], [place] [address]Dr. Farhat Leal GRAM STAIN SOURCE RT ACHILLES TENDON Normal [facility] Comment on above: Performed By: #### G STAIN ####[facility] Zvwvavpazx427[address] [place], [place] [address]Dr. Farhat Leal GS_DIPTH Normal [facility] Comment on above: Performed By: #### G STAIN ####[facility] Despvkavld182293 [address] [place], [place] [address]Dr. Farhat Leal WBC RARE Normal [facility] Comment on above: Performed By: #### G STAIN ####[facility] Xyiqlvsjsd3[address] [place], [place] [address]Dr. Farhat Leal COMMENTS NO ORGANISMS OBSERVED Normal [facility] Comment on above: Performed By: #### G STAIN ####[facility] Rmuvysmlyd2284 [place] [address]Dr. Farhat Leal DIPHTHEROIDS Normal [facility] Comment on above: Performed By: #### G STAIN ####[facility] Vlhmusjkty8213 [place] [address]Dr. Farhat Leal EPITHELIALS Normal [facility] Comment on above: Performed By: #### G STAIN ####[facility] Mmhxdvkvfs6687 [place] [address]Dr. Farhat Leal FUNGAL ELEMENTS Normal [facility] Comment on above: Performed By: #### G STAIN ####[facility] Ajkxtgqhtg0342 [place] [address]Dr. Farhat Leal GRAM NEG BACILLI Normal The [facility] Comment on above: Performed By: #### G STAIN ####[facility] Tzvikxjtmh1586 [place] [address]Dr. Farhat Leal GRAM NEG DIPPLOCOCCI Normal [facility] Comment on above: Performed By: #### G STAIN ####[facility] Mqrnlnvrcb645[address] [place], [place] [address]Dr. Farhat Leal GRAM POS BACILLI Normal The [facility] Comment on above: Performed By: #### G STAIN ####[facility] Uvoqhupcis320[address] [place], [place] [address]Dr. Farhat Leal GRAM POSITIVE COCCI Normal [facility] Comment on above: Performed By: #### G STAIN ####[facility] Kgzggpjkma214393 [address] [place], [place] [address]Dr. Farhat Leal GRAM STAIN SOURCE RT CALCANEOUS Normal [facility] Comment on above: Performed By: #### G STAIN ####[facility] Gpzzafekhm076[address] [place], [place] [address]Dr. Farhat Leal GS_DIPTH Normal [facility] Comment on above: Performed By: #### G STAIN ####[facility] Wbzdqtpjli6444[address] [place], [place] [address]Dr. Farhat Leal WBC RARE Normal [facility] Comment on above: Performed By: #### G STAIN ####[facility] Iurnancudm2386 [place] [address]Dr. Farhat Leal DIPHTHEROIDS Normal [facility] Comment on above: Performed By: #### G STAIN ####[facility] Yleqjsjyna126[address] [place], [place] [address]Dr. Farhat Leal EPITHELIALS Normal [facility] Comment on above: Performed By: #### G STAIN ####[facility] Lpicqafuqh574[address] [place], [place] [address]Dr. Farhat Leal FUNGAL ELEMENTS Normal [facility] Comment on above: Performed By: #### G STAIN ####[facility] Jupuqvbwox4419 [place] [id number]. Farhat Leal GRAM NEG BACILLI FEW Normal The [facility] Comment on above: Performed By: #### G STAIN ####[facility] Yfiieidmhf7371 [place] [phone]. Farhat Leal GRAM NEG DIPPLOCOCCI Normal [facility] Comment on above: Performed By: #### G STAIN ####[facility] Gphxbtpqmd7711 [place] [address]Dr. Farhat Leal GRAM POS BACILLI Normal The [facility] Comment on above: Performed By: #### G STAIN ####[facility] Lwhojwzdre3283 [place] [address]Dr. Farhat Leal GRAM POSITIVE COCCI FEW Normal [facility] Comment on above: Performed By: #### G STAIN ####[facility] Gvjbyibxbs080[address] [place], [place] [address]Dr. Farhat Leal GRAM STAIN SOURCE #2 Rt foot abscess Normal [facility] Comment on above: Performed By: #### G STAIN ####[facility] Ztlhifoqhx9166 [place] [address]Dr. Farhat Leal GS_DIPTH Normal [facility] Comment on above: Performed By: #### G STAIN ####[facility] Nmracfhzht5828 [place] [address]Dr. Farhat Leal WBC RARE Normal [facility] Comment on above: Performed By: #### G STAIN ####[facility] Qblklgrzui6738 [place] [id number]. Farhat Leal DIPHTHEROIDS Normal [facility] Comment on above: Performed By: #### G STAIN ####[facility] Iltojihknw[address] [place], [place] [address]Dr. Farhat Leal EPITHELIALS Normal [facility] Comment on above: Performed By: #### G STAIN ####[facility] Judjlvcxne8156 [place] [address]Dr. Farhat Leal FUNGAL ELEMENTS Normal [facility] Comment on above: Performed By: #### G STAIN ####[facility] Enelbvnepo5651 [place] [address]Dr. Farhat Leal GRAM NEG BACILLI FEW Normal The [facility] Comment on above: Performed By: #### G STAIN ####[facility] Ypfaiwezsw4669 [place] [address]Dr. Farhat Leal GRAM NEG DIPPLOCOCCI Normal [facility] Comment on above: Performed By: #### G STAIN ####[facility] Fbullivtkd9207 [place] [address]Dr. Farhat Leal GRAM POS BACILLI Normal The [facility] Comment on above: Performed By: #### G STAIN ####[facility] Sicmubbntc833[address] [place], [place] [address]Dr. Farhat Leal GRAM POSITIVE COCCI FEW Normal [facility] Comment on above: Performed By: #### G STAIN ####[facility] Ghkbtvtebt0436[address] [place], [place] [address]Dr. Farhat Leal GRAM STAIN SOURCE #1 Rt foot abscess Normal [facility] Comment on above: Performed By: #### G STAIN ####[facility] Tpfkcnevjp0934[address] [place], [place] [address]Dr. Farhat Leal GS_DIPTH Normal [facility] Comment on above: Performed By: #### G STAIN ####[facility] Zsafuoyava4006 [place] [address]Dr. Farhat Leal WBC NONE SEEN Normal [facility] Comment on above: Performed By: #### G STAIN ####[facility] Dtcbwzyoea7109 [place] [address]Dr. Farhat Leal POINT OF CARE GLUCOSEon 10-1 0 Glucose [Mass/Vol] 331 mg/dL Critically high 74-106 [facility] Comment on above: Performed By: #### P OCGLUC ####[facility] Lbqvldrblq8091 [place] [address]Dr. Farhat Leal Glucose [Mass/Vol] 236 mg/dL Critically high 74-106 [facility] Comment on above: Performed By: #### P OCGLUC ####[facility] Avonazzmbk0250 [place] [address]Dr. Farhat Leal PROF 14(COMP METB)on 022 Albumin [Mass/Vol] 1.6 g/dL Critically low 3.4-5.0 [facility] Comment on above: Performed By: #### B CONCRETE POURING SUPERVISOR, CMP, CRP ####[facility] Typojbvrzp0846 [place] [address]Dr. Farhat Leal Albumin/Globulin [Mass ratio] 0.4 {ratio} Normal [facility] Comment on above: Performed By: #### B CONCRETE POURING SUPERVISOR, CMP, CRP ####[facility] Chwokvkcii6857 [place] [address]Dr. Farhat Leal ALP [Catalytic activity/Vol] 94 U/L Normal 46-116 [facility] Comment on above: Performed By: #### B CONCRETE POURING SUPERVISOR, CMP, CRP ####[facility] Icvwwjoiaa2298 [place] [address]Dr. Farhat Leal ALT [Catalytic activity/Vol] 49 U/L Normal 16-63 [facility] Comment on above: Performed By: #### B CONCRETE POURING SUPERVISOR, CMP, CRP ####[facility] Khshaoaxgv1306 [place] [address]Dr. Farhat Leal Anion gap [Moles/Vol] 12.5 mmol/L Normal [facility] Comment on above: Performed By: #### B CONCRETE POURING SUPERVISOR, CMP, CRP ####[facility] Pfhziqsvdn8838 [place] [address]Dr. Farhat Leal AST [Catalytic activity/Vol] 102 U/L Critically high 15-37 [facility] Comment on above: Performed By: #### B CONCRETE POURING SUPERVISOR, CMP, CRP ####[facility] Tknayvyahh1791 [place] [address]Dr. Farhat Leal Bilirubin [Mass/Vol] 0.8 mg/dL Normal 0.2-1.0 [facility] Comment on above: Performed By: #### B CONCRETE POURING SUPERVISOR, CMP, CRP ####[facility] Bjomzmjvfd0934 [place] [address]Dr. Farhat Leal Calcium [Mass/Vol] 8.4 mg/dL Critically low 8.5-10.1 [facility] Comment on above: Performed By: #### B CONCRETE POURING SUPERVISOR, CMP, CRP ####[facility] Hxahkuidww1351 [place] [address]Dr. Farhat Leal Chloride [Moles/Vol] 96 mmol/L Critically low 98-107 [facility] Comment on above: Performed By: #### B CONCRETE POURING SUPERVISOR, CMP, CRP ####[facility] Ywrsgoxpjn[address] [place], [place] [address]Dr. Madelynlorri Leal CO2 [Moles/Vol] 24.8 mmol/L Normal 21.0-32.[address] [facility] Comment on above: Performed By: #### B CONCRETE POURING SUPERVISOR, CMP, CRP ####[facility] Hnupxsrnuv575[address] [place], [place] [address]Dr. Madelynlorri Leal Creatinine [Mass/Vol] 1.36 mg/dL Critically high 0.70-1.30 [facility] Comment on above: Performed By: #### B CONCRETE POURING SUPERVISOR, CMP, CRP ####[facility] Bgsfsbsxjy5416[address] [place], [place] [address]Dr. Madelynlorri Elvis EGFR-AF [place] >60 Normal >=[address] [facility] Comment on above: Performed By: #### B CONCRETE POURING SUPERVISOR, CMP, CRP ####[facility] Aubeoensms7834[address] [place], [place] [address]Dr. Madelynlorri Leal EGFR-NON AF [place] 51 mL/min/1.73m2 Critically low >=60 [facility] Comment on above: Performed By: #### B CONCRETE POURING SUPERVISOR, CMP, CRP ####[facility] Avdbsvchjj29[address] [place], [place] [address]Dr. Farhat Leal Globulin (S) [Mass/Vol] 4.1 g/dL Normal [facility] Comment on above: Performed By: #### B CONCRETE POURING SUPERVISOR, CMP, CRP ####[facility] [facility] [address]nsxiautcp[address] [place], [place] [address]Dr. Farhat Leal Glucose [Mass/Vol] 204 mg/dL Critically high 74-106 T [facility] Comment on above: Performed By: #### B CONCRETE POURING SUPERVISOR, CMP, CRP ####[facility] Hpglkevixh3[address] [place] [address]Dr. Farhat Leal Potassium [Moles/Vol] 4.3 mmol/L Normal 3.5-5.1 [facility] Comment on above: Performed By: #### B CONCRETE POURING SUPERVISOR, CMP, CRP ####[facility] Dmgkzhgecj0[address] [place] [address]Dr. Farhat Leal Protein [Mass/Vol] 5.7 g/dL Critically low 6.4-8.2 [facility] Comment on above: Performed By: #### B CONCRETE POURING SUPERVISOR, CMP, CRP ####[facility] Dgjnprlghx5316 [place] [address]Dr. Farhat Leal Sodium [Moles/Vol] 129 mmol/L Critically low 136-145 [facility] Comment on above: Performed By: #### B CONCRETE POURING SUPERVISOR, CMP, CRP ####[facility] Rdpdbovsax[address] [place], [place] [address]Dr. aFrhat Leal Urea nitrogen [Mass/Vol] 41.0 mg/dL Critically high 7.0-18.0 [facility] Comment on above: Performed By: #### B CONCRETE POURING SUPERVISOR, CMP, CRP ####[facility] Weelclhszz[address] [place], [place] [address]Dr. Farhat Leal Urea nitrogen/Creatinine [Mass ratio] 30.1 mg/mg Normal [facility] Comment on above: Performed By: #### B CONCRETE POURING SUPERVISOR, CMP, CRP ####[facility] Psxvzxecwl[address] [place], [place] [address]Dr. Farhat Leal PROTIMEon 11-24-2021 INR Coag (PPP) [Relative time] 2.20 {INR} Normal [facility] Comment on above: Performed By: #### P T ####[facility] Afttwtimyf[address] [place], [place] [address]Dr. Farhat Leal INR GUIDELINES SEE BELOW Normal [facility] Comment on above: Result Comment: MALINA RED INR: 2.0 - 3.0 CONDITIONS NOT LISTED BELOW 2.5 - 3.5 FOR PROSTHETIC HEART VALVE REPLACEMENT 2.5 - 3.5 RECURRENT THROMBOSIS Performed By: #### P T ####[facility] Bhszslkppz[address] [place], [place] [address]Dr. Farhat Leal PT Coag (PPP) [Time] 22.6 s Critically high 9.0-11.6 [facility] Comment on above: Performed By: #### P T ####[facility] Ufdslnbaeo[address] [place] [address]Dr. Farhat Elvis SED RATE [facility] 2021 SED RATE 80 mm/hr Critically high <=20 [facility] Comment on above: Performed By: #### S EDR ####[facility] Lxljakofev[address] [place] [address]Dr. Farhat Elvis BLOOD CULTURE ID PANELon A. baumannii Not detected Normal NOT DETECTED The [facility] Comment on above: Performed By: #### B CID2 ####[facility] Tefgpgteby2376 [place] [address]Dr. Madelynlorri Leal Bacteriodes fragilis Not detected Normal NOT DETECTED [facility] Comment on above: Performed By: #### B CID2 ####[facility] Stlasbnftb6090 [place] [address]Dr. Farhat Elvis BCID CONTROLS PASSED Normal [facility] Comment on above: Performed By: #### B CID2 ####[facility] Wqhkvckyly4882 [place] [address]Dr. Farhat Elvis BCIDBTHD BLOOD CULTURE BOTTLE INFORMATION Normal [facility] Comment on above: Performed By: #### B CID2 ####[facility] Uvarodozca[address] [place], [place] [address]Dr. Farhat Elvis BCIDHD1 ANTIMICROBIAL RESISTANCE GENES Normal [facility] Comment on above: Performed By: #### B CID2 ####[facility] Bjqpirnsrn5[address] [place] [address]Dr. Madelynlorri Leal BCIDHD2 SEE BELOW Normal [facility] Comment on above: Result Comment: Note : Antimicrobial resitance can occur via multiple mechanisms. A Not Detected result for the [employer] antomicrobial resistance gene assays does not indicate antimicrobial susceptibility. Subculturing is required for species identification and susceptibility testing of isolates. Performed By: #### B CID2 ####[facility] O[address]vdvmfd[address] [place] [id number]. Farhat Leal BCIDHD3 Positive Normal [facility] Comment on above: Performed By: #### B CID2 ####[facility] Swuqliwmaq[address] [place] [id number]. Yilorri Leal BCIDHD4 Negative Normal [facility] Comment on above: Performed By: #### B CID2 ####[facility] Agytljzjpv94[address] [place] [id number]. Farhat Leal BCIDHD5 YEAST Normal [facility] Comment on above: Performed By: #### B CID2 ####[facility] Rorluglvcz0657 [place] [address]Dr. Farhat Leal Bottle Set: Set 1 Normal [facility] Comment on above: Performed By: #### B CID2 ####[facility] Vsdvwncsqt4399 [place] [address]Dr. Farhat Leal Bottle: Aerobic Normal [facility] Comment on above: Performed By: #### B CID2 ####[facility] Qcnbcnqnkp7510 [place] [address]Dr. Farhat [facility] C. neoformans/gattii Not detected Normal NOT DETECTED [facility] Comment on above: Performed By: #### B CID2 ####[facility] Rcrzoijzha[address] [place], [place] [address]Dr. Yilorri Leal Disha albicans Not detected Normal NOT DETECTED [facility] Comment on above: Performed By: #### B CID2 ####[facility] Ymdfhpstde7813 [place] [address]Dr. Yilorri Leal Disha auris Not detected Normal NOT DETECTED The [facility] Comment on above: Performed By: #### B CID2 ####[facility] Vpsgzixrqf7144 [place] [address]Dr. Farhat Leal Disha glabrata Not detected Normal NOT DETECTED [facility] Comment on above: Performed By: #### B CID2 ####[facility] Rlzcghyutj2280 [place] [address]Dr. Farhat Leal Disha Krusei Not detected Normal NOT DETECTED The [facility] Comment on above: Performed By: #### B CID2 ####[facility] Enoqpftmai9689 [place] [address]Dr. Yilan Leal Disha Parapsilosis Not detected Normal NOT DETECTED [facility] Comment on above: Performed By: #### B CID2 ####[facility] Jrarohrwrf1263 [place] [address]Dr. Yilan Leal Disha Tropicalis Not detected Normal NOT DETECTED [facility] Comment on above: Performed By: #### B CID2 ####[facility] Jznstasoij0134[address] [place], [place] [address]Dr. Farhat Leal CTX-M Resistant Gene Not Applicable Normal NOT DETECTE D [facility] Comment on above: Performed By: #### B CID2 ####[facility] Vdfgfcvhav[address] [place], [place] [address]Dr. Yilorri Leal E. Cloacae complex Not detected Normal NOT DETECTED [facility] Comment on above: Performed By: #### B CID2 ####[facility] Ltinwaegze9[address] [place], [place] [address]Dr. Yilan Leal E. faecalis Not detected Normal NOT DETECTED [facility] Comment on above: Performed By: #### B CID2 ####[facility] Ghipsrjqfz85[address] [place], [place] [address]Dr. Yilorri Leal E. faecium Not detected Normal NOT DETECTED The [facility] Comment on above: Performed By: #### B CID2 ####[facility] Aaxnirpumk095[address] [place], [place] [address]Dr. Yilan Leal Enterobacteriaceae Not detected Normal NOT DETECTED [facility] Comment on above: Performed By: #### B CID2 ####[facility] Racalzlesr7964[address] [place], [place] [address]Dr. Yilan Leal Escherichia coli Not detected Normal NOT DETECTED [facility] Comment on above: Performed By: #### B CID2 ####[facility] Bpftrymsqh269[address] [place], [place] [address]Dr. Yilan Leal H. influenzae Not detected Normal NOT DETECTED [facility] Comment on above: Performed By: #### B CID2 ####[facility] Bjrlzsuvef4088 [place] [id number]. Farhat Leal IMP Resistant Gene Not Applicable Normal NOT DETECTED [facility] Comment on above: Performed By: #### B CID2 ####[facility] Jrdlfkmmed029[address] [place], [place] [address]Dr. Farhat Leal K. oxytoca Not detected Normal NOT DETECTED [facility] Comment on above: Performed By: #### B CID2 ####[facility] Ekdzrueqry133[address] [place], [place] [address]Dr. Farhat Leal K. pneumoniae Not detected Normal NOT DETECTED [facility] Comment on above: Performed By: #### B CID2 ####[facility] Pgqdnqsljz[address] [place], [place] [address]Dr. Farhat Leal Klebsiella aerogenes Not detected Normal NOT DETECTED [facility] Comment on above: Performed By: #### B CID2 ####[facility] Giwizcubdw627[address] [place], [place] [address]Dr. Farhat Leal KPC Resistant Gene Not Applicable Normal NOT DETECTED [facility] Comment on above: Performed By: #### B CID2 ####[facility] Cwzmefqdbl165[address] [place], [place] [address]Dr. Madelynlorri Elvis List. monocytogenes Not detected Normal NOT DETECTED [facility] Comment on above: Performed By: #### B CID2 ####[facility] Lypiqhbtib347[address] [place], [place] [address]Dr. Farhat Leal Mcr-1 Resistant Gene Not Applicable Normal NOT DETECTE D [facility] Comment on above: Performed By: #### B CID2 ####[facility] Zctqqvwano2699 [place] [address]Dr. Madelynlan Elvis mecA/C Not Applicable Normal NOT DETECTED The [facility] Comment on above: Performed By: #### B CID2 ####[facility] Yvrrlhcgwk1215 [place] [address]Dr. Farhat Leal mecA/C MREJ Detected Abnormal NOT DETECTED [facility] Comment on above: Performed By: #### B CID2 ####[facility] Oacqpelaex[address] [place], [place] [address]Dr. Farhat Leal N. meningitidis Not detected Normal NOT DETECTED The [facility] Comment on above: Performed By: #### B CID2 ####[facility] Tfgsgmyfoh2335[address] [place], [place] [address]Dr. Farhat Leal NDM Resistant Gene Not Applicable Normal NOT DETECTED [facility] Comment on above: Performed By: #### B CID2 ####[facility] Xnncvwabvx6901[address] [place], [place] [address]Dr. Farhat Leal Oxa-48-like Not Applicable Normal NOT DETECTED [facility] Comment on above: Performed By: #### B CID2 ####[facility] Lrycnjtmjg8[address] [place], [place] [address]Dr. Farhat Leal Proteus Not detected Normal NOT DETECTED [facility] Comment on above: Performed By: #### B CID2 ####[facility] Odxojptdxj3824[address] [place], [place] [address]Dr. Farhat Leal Pseud. aeruginosa Not detected Normal NOT DETECTED [facility] Comment on above: Performed By: #### B CID2 ####[facility] Wstdeulmvq0513[address] [place], [place] [address]Dr. Farhat Leal S. maltophilia Not detected Normal NOT DETECTED [facility] Comment on above: Performed By: #### B CID2 ####[facility] Gvkudgzvko5532[address] [place], [place] [address]Dr. Farhat Leal Salmonella Not detected Normal NOT DETECTED [facility] Comment on above: Performed By: #### B CID2 ####[facility] Cxvjcxfago[address] [place], [place] [address]Dr. Farhat Leal Seratia marcescens Not detected Normal NOT DETECTED [facility] Comment on above: Performed By: #### B CID2 ####[facility] Eqxzmxxotf807[address] [place], [place] [address]Dr. Farhat Leal Site: Rt Hand Normal [facility] Comment on above: Performed By: #### B CID2 ####[facility] Bvscuhllum6924[address] [place], [place] [address]Dr. Farhat Leal Staph. aureus Detected Abnormal NOT DETECTED [facility] Comment on above: Performed By: #### B CID2 ####[facility] Gltojomuoy4402 [place] [address]Dr. Farhat Leal Staph. epidermidis Not detected Normal NOT DETECTED [facility] Comment on above: Performed By: #### B CID2 ####[facility] Rmbwcvryjo374[address] [place], [place] [address]Dr. Farhat Leal Staph. lugdunensis Not detected Normal NOT DETECTED [facility] Comment on above: Performed By: #### B CID2 ####[facility] Lkowbzcgyk3214[address] [place], [place] [address]Dr. Farhat Leal Staphylococcus Detected Abnormal NOT DETECTED The [facility] Comment on above: Performed By: #### B CID2 ####[facility] Osucgtsxhy[address] [place], [place] [address]Dr. Farhat Leal Strep. agalactiae Not detected Normal NOT DETECTED [facility] Comment on above: Performed By: #### B CID2 ####[facility] Tvxbdpdnpg338[address] [place], [place] [address]Dr. Farhat Leal Strep. pneumoniae Not detected Normal NOT DETECTED [facility] Comment on above: Performed By: #### B CID2 ####[facility] Jfwqredhsc9[address] [place], [place] [address]Dr. Farhat Leal Strep. pyogenes Not detected Normal NOT DETECTED [facility] Comment on above: Performed By: #### B CID2 ####[facility] Meeowdvxzf718[address] [place], [place] [address]Dr. Farhat Leal Streptococcus Not detected Normal NOT DETECTED [facility] Comment on above: Performed By: #### B CID2 ####[facility] Wfdvzbbdsf[address] [place], [place] [address]Dr. Farhat Leal Teodoro/B Resist. Gene Not Applicable Normal NOT DETECTED [facility] Comment on above: Performed By: #### B CID2 ####[facility] Glnvblqeee932[address] [place], [place] [address]Dr. Farhat Leal VIM Resistant Gene Not Applicable Normal NOT DETECTED [facility] Comment on above: Performed By: #### B CID2 ####[facility] Ymtvavatvv1842 [place] [address]Dr. Farhat Leal BNPon 11-23-2021 Natriuretic peptide B (Bld) [Mass/Vol] 27733.0 pg/mL Critically high <=1,800.0 [facility] Comment on above: Performed By: #### C MP, CMADM, BNP ####[facility] Sbmxstkzfr3356 [place] [address]Dr. Farhat Leal CARDIAC AMANDA ADMITon 022 CK [Catalytic activity/Vol] 41 U/L Normal 39-308 [facility] Comment on above: Performed By: #### C MP, CMADM, BNP ####[facility] Jrzdbhycur6877 [place] [address]Dr. Farhat Leal CK.MB [Mass/Vol] 0.98 ng/mL Normal <=3.60 The [facility] Comment on above: Performed By: #### C MP, CMADM, BNP ####[facility] Ovcmxnaskx6953 [place] [address]Dr. Farhat Leal HSTROP 30.1 pg/mL Normal 4.0-76.1 [facility] Comment on above: Result Comment: CUT- OFF POINTS HAVE BEEN ESTABLISHED BASED ON THE FOURTH UNIVERSAL DEFINITIONS OF MYOCARDIALINFARCTION. THE UPPER REFERENCE LIMIT (URL) OF TROPONIN, DEFINED THE 99TH PERCENTILE OFcTnI DISTRIBUTION IN A REFERENCE POPULATION, HAS BEEN CONFIRMED THE DECISION THRESHOLDFOR MS DIAGNOSIS. Performed By: #### C MP, CMADM, BNP ####[facility] Zcrbvepsxh7356 [place] [address]Dr. Farhat Leal VALERIA 160 ng/mL Critically high 16-96 [facility] Comment on above: Performed By: #### C MP, CMADM, BNP ####[facility] Impeydrvdp3724 [place] [address]Dr. Farhat Leal CBC AUTO DIFFon 11-23-2021 BASO # 0.0 103/ul Normal 0.0-0.1 [facility] Comment on above: Performed By: #### C BC ####[facility] Lklcowgfmc5380 [place] [id number]. Farhat Leal Basophils/100 WBC (Bld) 0.2 % Normal 0.2-2.0 [facility] Comment on above: Performed By: #### C BC ####[facility] Drobijmvlv3326 [place] [id number]. Farhat Leal EO # 0.0 103/ul Normal 0.0-0.7 [facility] Comment on above: Performed By: #### C BC ####[facility] Kijedgeyop[address] [place], [place] [address]Dr. Farhat Leal Eosinophils/100 WBC (Bld) 0.1 % Critically low 0.9-7.0 [facility] Comment on above: Performed By: #### C BC ####[facility] Lfxnekpatw3665[address] [place], [place] [address]Dr. Farhat Leal Erythrocyte distribution width (RBC) [Ratio] 13.4 % Normal 11.0-15.0 [facility] Comment on above: Performed By: #### C BC ####[facility] Bgfjctvwxs13[address] [place], [place] [address]Dr. Farhat Leal Hematocrit (Bld) [Volume fraction] 31.6 % Critically low 42.0-54.0 [facility] Comment on above: Performed By: #### C BC ####[facility] Ejdosmvfid[address] [place], [place] [address]Dr. Farhat Leal Hemoglobin (Bld) [Mass/Vol] 10.4 g/dL Critically low 14.0-18.0 [facility] Comment on above: Performed By: #### C BC ####[facility] Grrpsobvqu[address] [place], [place] [address]Dr. Farhat Leal IG # 0.11 10e3/ul Critically high 0.00-0.03 [facility] Comment on above: Performed By: #### C BC ####[facility] Ggovufgjuh70[address] [place], [place] [address]Dr. Farhat Leal IG % 0.7 % Critically high 0.0-0.5 [facility] Comment on above: Performed By: #### C BC ####[facility] Gmdgazauwf4089 [place] [id number]. Farhat Leal LYMPH # 0.5 103/ul Critically low 1.2-3.8 [facility] Comment on above: Performed By: #### C BC ####[facility] Oafhnjgftw5398 [place] [id number]. Farhat Leal Lymphocytes/100 WBC (Bld) 2.8 % Critically low 20.5-60.0 [facility] Comment on above: Performed By: #### C BC ####[facility] Vguemvkqqg2281 [place] [id number]. Farhat Leal MANUAL DIFF REQ NO Normal [facility] Comment on above: Performed By: #### C BC ####[facility] Njjdxgyelk5286 [place] [phone]. Farhat Leal MCH (RBC) [Entitic mass] 29.8 pg Normal 25.9-34.0 [facility] Comment on above: Performed By: #### C BC ####[facility] Keqroulyah6951 [place] [phone]. Farhat Leal MCHC (RBC) [Mass/Vol] 32.9 g/dL Normal 29.9-35.2 [facility] Comment on above: Performed By: #### C BC ####[facility] Nupcylmwpr0834 [place] [phone]. Farhat Leal MCV (RBC) [Entitic vol] 90.5 fL Normal 80.0-94.0 [facility] Comment on above: Performed By: #### C BC ####[facility] Jmrdfcgrby9576 [place] [address]Dr. Farhat Leal MONO # 1.3 103/ul Critically high 0.3-0.8 [facility] Comment on above: Performed By: #### C BC ####[facility] Sfdhpylrzx4637 [place] [phone]. Farhat Leal Monocytes/100 WBC (Bld) 8.3 % Normal 1.7-12.0 [facility] Comment on above: Performed By: #### C BC ####[facility] Pobnklzrag5332 [place], [place] [address]Ya. Farhat Leal NEUT # 13.9 103/ul Critically high 1.4-6.5 The [facility] Comment on above: Performed By: #### C BC ####[facility] Upyyguodcb1054 [place], [place] [address]Lb. Farhat Leal Neutrophils/100 WBC (Bld) 87.9 % Critically high 43.0-75.0 [facility] Comment on above: Performed By: #### C BC ####[facility] Rxmnioojxt2410 [place] [phone]. Farhat Leal Platelet mean volume (Bld) [Entitic vol] 9.3 fL Critically low 9.5-13.5 [facility] Comment on above: Performed By: #### C BC ####[facility] Hefofnokwv1456 [place] [id number]. Farhat Leal PLT 390 103/ul Normal 150-450 [facility] Comment on above: Performed By: #### C BC ####[facility] Nwhtcsaxep9428 [place] [phone]. Farhat Leal RBC 3.49 106/ul Critically low 4.70-6.10 [facility] Comment on above: Performed By: #### C BC ####[facility] Bibtmljshc8659 [place] [phone]. Farhat Leal WBC 15.9 103/ul Critically high 4.0-11.0 The [facility] Comment on above: Performed By: #### C BC ####[facility] Jruahxeybs8[address] [place] [phone]. Farhat Leal CT HEAD WO CONon 11-23-2021 CT HEAD WO CON Normal [facility] CULTURE BLOODon 11-23-2021 Microscopic examination of blood, culture Culture Observations: NO GROWTH AT 5 DAYS. Normal [facility] Comment on above: Performed By: #### B LDCX2 ####[facility] Zhpejehtec8880 [place] [id number]. Farhat Leal Covid-19 PCR (CVDTBH)on SARS-CoV-2 (COVID-19) RNA JOSH+probe Ql (Unsp spec) Not detected Normal NOT DETECTED [facility] Comment on above: Result Comment: When [...] for this test is supported by the [place] of Health and Human Service's declaration that [...] be used). Performed By: #### C VDTBH ####[facility] Czlzneyimv5666 [place] [address]DrSkylar Leal LACTATE/LACTIC ACIDon 2021 Lactate [Moles/Vol] 1.3 mmol/L Normal 0.4-1.9 [facility] Comment on above: Performed By: #### L ACT ####[facility] Ybbchoxvlp[address] [place], [place] [address]Dr. Farhat Leal Lactate [Moles/Vol] 1.3 mmol/L Normal 0.4-1.9 [facility] Comment on above: Performed By: #### L ACT ####[facility] Hkwudtslts[address] [place], [place] [address]Dr. Farhat Leal POINT OF CARE GLUCOSEon Glucose [Mass/Vol] 252 mg/dL Critically high 74-106 [facility] Comment on above: Performed By: #### P OCGLUC ####[facility] Omlvlwoawa[address] [place], [place] [address]Dr. Farhat Leal PROF 14(COMP METB)on 022 Albumin [Mass/Vol] 1.6 g/dL Critically low 3.4-5.0 [facility] Comment on above: Performed By: #### C MP, CMADM, BNP ####[facility] Wevszbhovm6693 [place] [phone]. Farhat Leal Albumin/Globulin [Mass ratio] 0.4 {ratio} Normal [facility] Comment on above: Performed By: #### C MP, CMADM, BNP ####[facility] Dplddjuhcy8343 [place] [address]Dr. Farhat Leal ALP [Catalytic activity/Vol] 98 U/L Normal 46-116 [facility] Comment on above: Performed By: #### C MP, CMADM, BNP ####[facility] Htqnjnlxpa9034 [place] [address]Dr. Farhat Leal ALT [Catalytic activity/Vol] 52 U/L Normal 16-63 [facility] Comment on above: Performed By: #### C MP, CMADM, BNP ####[facility] Fhrwcjrgds3941 [place] [address]Dr. Farhat Leal Anion gap [Moles/Vol] 9.8 mmol/L Normal [facility] Comment on above: Performed By: #### C MP, CMADM, BNP ####[facility] Ugaoxpdsoj9844 [place] [address]Dr. Farhat Leal AST [Catalytic activity/Vol] 122 U/L Critically high 15-37 [facility] Comment on above: Performed By: #### C MP, CMADM, BNP ####[facility] Acpqfcdvmu2089 [place] [address]Dr. aFrhat Leal Bilirubin [Mass/Vol] 0.7 mg/dL Normal 0.2-1.0 [facility] Comment on above: Performed By: #### C MP, CMADM, BNP ####[facility] Aklwxqecxg3424 [place] [address]Dr. Farhat Leal Calcium [Mass/Vol] 8.6 mg/dL Normal 8.5-10.1 [facility] Comment on above: Performed By: #### C MP, CMADM, BNP ####[facility] Abpzhefhln5972 [place] [address]Dr. Farhat Leal Chloride [Moles/Vol] 95 mmol/L Critically low 98-107 [facility] Comment on above: Performed By: #### C MP, CMADM, BNP ####[facility] Cxpyqrcrcz1055 [place] [address]Dr. Farhat Leal CO2 [Moles/Vol] 29.6 mmol/L Normal 21.0-32.[address] [facility] Comment on above: Performed By: #### C MP, CMADM, BNP ####[facility] Ytvkkhewkp30[address] [place], [place] [address]Dr. Farhat Leal Creatinine [Mass/Vol] 1.49 mg/dL Critically high 0.70-1.30 [facility] Comment on above: Performed By: #### C MP, CMADM, BNP ####[facility] Kkhaxkyyqn[address] [place], [place] [address]Dr. Farhat Leal EGFR-AF [place] 55 mL/min/1.73m2 Critically low >=60 [facility] Comment on above: Performed By: #### C MP, CMADM, BNP ####[facility] Lczmudyuld[address] [place], [place] [address]Dr. Farhat Leal EGFR-NON AF [place] 46 mL/min/1.73m2 Critically low >=60 [facility] Comment on above: Performed By: #### C MP, CMADM, BNP ####[facility] Zdliimjkto4102 [place] [address]Dr. Farhat Leal Globulin (S) [Mass/Vol] 4.3 g/dL Normal [facility] Comment on above: Performed By: #### C MP, CMADM, BNP ####[facility] Qishhhzimy[address] [place], [place] [address]Dr. Farhat Leal Glucose [Mass/Vol] 213 mg/dL Critically high 74-106 [facility] Comment on above: Performed By: #### C MP, CMADM, BNP ####[facility] Nbvncrtwjb7674 [place] [address]Dr. Farhat Leal Potassium [Moles/Vol] 4.4 mmol/L Normal 3.5-5.1 [facility] Comment on above: Performed By: #### C MP, CMADM, BNP ####[facility] B[address]jsccztw[address] [place] [address]Dr. Madelynolrri Leal Protein [Mass/Vol] 5.9 g/dL Critically low 6.4-8.2 [facility] Comment on above: Performed By: #### C MP, CMADM, BNP ####[facility] Sqeqrrolzf67[address] [place] [address]Dr. Madelynlorri Leal Sodium [Moles/Vol] 130 mmol/L Critically low 136-145 [facility] Comment on above: Performed By: #### C MP, CMADM, BNP ####[facility] Tlsdvohjeu[address] [place], [place] [address]Dr. Farhat Leal Urea nitrogen [Mass/Vol] 46.0 mg/dL Critically high 7.0-18.0 [facility] Comment on above: Performed By: #### C MP, CMADM, BNP ####[facility] Sgxtfyigef15[address] [place] [address]Dr. Farhat Leal Urea nitrogen/Creatinine [Mass ratio] 30.9 mg/mg Normal [facility] Comment on above: Performed By: #### C MP, CMADM, BNP ####[facility] Onouhpnzck[address] [place], [place] [address]Dr. Farhat Leal PROTIMEon 11-23-2021 INR Coag (PPP) [Relative time] 2.55 {INR} Normal [facility] Comment on above: Performed By: #### P TT, PT ####[facility] Xfqwpgywge[address] [place], [place] [address]Dr. Farhat Leal INR GUIDELINES SEE BELOW Normal [facility] Comment on above: Result Comment: MALINA RED INR: 2.0 - 3.0 CONDITIONS NOT LISTED BELOW 2.5 - 3.5 FOR PROSTHETIC HEART VALVE REPLACEMENT 2.5 - 3.5 RECURRENT THROMBOSIS Performed By: #### P TT, PT ####[facility] Dcneqxuyqd97[address] [place] [id number]. Farhat Leal PT Coag (PPP) [Time] 25.9 s Critically high 9.0-11.6 [facility] Comment on above: Performed By: #### P TT, PT ####[facility] Wpcvdkwxlf93[address] [place] [address]Dr. Farhat Leal PTTon 11-23-2021 aPTT Coag (Bld) [Time] 39.9 s Critically high 22.3-36. 2 [facility] Comment on above: Performed By: #### P TT, PT ####[facility] Bgluckwwku[address] [place], [place] [address]Dr. Farhat Leal XR CHEST 1 Von 11-23-2021 XR CHEST 1 V Normal [facility] XR HEEL RT 2Von 11-23-2021 XR HEEL RT 2V Normal [facility] XR FOOT RT MIN 3 VIEWSon XR FOOT RT MIN 3 VIEWS Normal [facility] US ARTERY LEG RTon US ARTERY LEG RT Normal The [facility] CBC AUTO DIFFon 09-24-2021 BASO # 0.1 103/ul Normal 0.0-0.1 [facility] Comment on above: Performed By: #### C BC ####[facility] Fcjnnnqlya17[address] [place], [place] [address]Dr. Farhat Leal Basophils/100 WBC (Bld) 0.7 % Normal 0.2-2.0 [facility] Comment on above: Performed By: #### C BC ####[facility] Lalyuyqlvw[address] [place], [place] [address]Dr. Farhat Leal EO # 0.3 103/ul Normal 0.0-0.7 [facility] Comment on above: Performed By: #### C BC ####[facility] Hyhjbwygah654[address] [place], [place] [address]Dr. Farhat Leal Eosinophils/100 WBC (Bld) 3.9 % Normal 0.9-7.0 [facility] Comment on above: Performed By: #### C BC ####[facility] Qvojuprqvv445[address] [place], [place] [address]Dr. Farhat Leal Erythrocyte distribution width (RBC) [Ratio] 12.6 % Normal 11.0-15.0 [facility] Comment on above: Performed By: #### C BC ####[facility] Qerawtyugf5037 [place] [address]Dr. Farhat Leal Hematocrit (Bld) [Volume fraction] 38.9 % Critically low 42.0-54.0 [facility] Comment on above: Performed By: #### C BC ####[facility] Gdyzrntmuz6964[address] [place], [place] [address]Dr. Farhat Leal Hemoglobin (Bld) [Mass/Vol] 12.8 g/dL Critically low 14.0-18.0 [facility] Comment on above: Performed By: #### C BC ####[facility] Umutqrmyfy047[address] [place], [place] [address]Dr. Farhat Leal IG # 0.10 10e3/ul Critically high 0.00-0.03 [facility] Comment on above: Performed By: #### C BC ####[facility] Rewnrbgrcw188[address] [place], [place] [address]Dr. Madelynlorri Leal IG % 1.2 % Critically high 0.0-0.5 [facility] Comment on above: Performed By: #### C BC ####[facility] Hlodxfvlpw[address] [place], [place] [address]Dr. Farhat Leal LYMPH # 2.1 103/ul Normal 1.2-3.8 [facility] Comment on above: Performed By: #### C BC ####[facility] Wtqntgbinq9734[address] [place], [place] [address]Dr. Farhat Leal Lymphocytes/100 WBC (Bld) 25.9 % Normal 20.5-60.0 [facility] Comment on above: Performed By: #### C BC ####[facility] Hghntehhnu2725[address] [place], [place] [address]Dr. Madelynlorri Leal MANUAL DIFF REQ NO Normal [facility] Comment on above: Performed By: #### C BC ####[facility] Vxgmwhmrkr8[address] [place] [address]Dr. Farhat Leal MCH (RBC) [Entitic mass] 31.1 pg Normal 25.9-34.0 [facility] Comment on above: Performed By: #### C BC ####[facility] Njzskvbfrs[address] [place], [place] [address]Dr. Farhat Leal MCHC (RBC) [Mass/Vol] 32.9 g/dL Normal 29.9-35.2 [facility] Comment on above: Performed By: #### C BC ####[facility] Yltwfbxziu9720[address] [place], [place] [address]Dr. Farhat Leal MCV (RBC) [Entitic vol] 94.6 fL Critically high 80.0-94.0 [facility] Comment on above: Performed By: #### C BC ####[facility] Maylueqsiz1736[address] [place], [place] [address]Dr. Farhat Leal MONO # 1.2 103/ul Critically high 0.3-0.8 [facility] Comment on above: Performed By: #### C BC ####[facility] Xzdosdeyjy[address] [place], [place] [address]Dr. Farhat Leal Monocytes/100 WBC (Bld) 14.1 % Critically high 1.7-12.0 [facility] Comment on above: Performed By: #### C BC ####[facility] Wujiegofnc[address] [place], [place] [address]Dr. Farhat Leal NEUT # 4.4 103/ul Normal 1.4-6.5 [facility] Comment on above: Performed By: #### C BC ####[facility] Imcudwqmhj3664[address] [place], [place] [address]Dr. Farhat Elvis Neutrophils/100 WBC (Bld) 54.2 % Normal 43.0-75.0 [facility] Comment on above: Performed By: #### C BC ####[facility] Ptjpsgardn1934[address] [place], [place] [address]Dr. Farhat Leal Platelet mean volume (Bld) [Entitic vol] 9.9 fL Normal 9.5-13.5 [facility] Comment on above: Performed By: #### C BC ####[facility] Itcvfubiax5[address] [place] [phone]. Farhat Leal PLT 224 103/ul Normal 150-450 [facility] Comment on above: Performed By: #### C BC ####[facility] Kaxtookjfm7[address] [place] [phone]. Farhat Leal RBC 4.11 106/ul Critically low 4.70-6.10 [facility] Comment on above: Performed By: #### C BC ####[facility] Zpniuvldta0126 [place] [phone]. Farhat Leal WBC 8.2 103/ul Normal 4.0-11.0 [facility] Comment on above: Performed By: #### C BC ####[facility] Tpcxksywve70[address] [place] [address]Dr. Madelynlorri Leal PROF CHEM 8 (BAS METB)on Anion gap [Moles/Vol] 9.6 mmol/L Normal [facility] Comment on above: Performed By: #### B MP ####[facility] Bbxmjbhjfp0094 [place] [address]Dr. Farhat Elvis Calcium [Mass/Vol] 8.6 mg/dL Normal 8.5-10.1 [facility] Comment on above: Performed By: #### B MP ####[facility] Umnuubvlve8485 [place] [address]Dr. Farhat Elvis Chloride [Moles/Vol] 94 mmol/L Critically low 98-107 [facility] Comment on above: Performed By: #### B MP ####[facility] Dphckjcxte4238 [place] [phone]. Madelynlorri Leal CO2 [Moles/Vol] 28.1 mmol/L Normal 21.0-32.0 The [facility] Comment on above: Performed By: #### B MP ####[facility] Vckfhezopp7784 [place] [phone]. Farhat Elvis Creatinine [Mass/Vol] 1.91 mg/dL Critically high 0.70-1.30 [facility] Comment on above: Performed By: #### B MP ####[facility] Xvjycnuytq4683 [place] [phone]. Madelynlorri Elvis EGFR-AF [place] 42 mL/min/1.73m2 Critically low >=60 [facility] Comment on above: Performed By: #### B MP ####[facility] Wijfpdccvs8[address] [place] [phone]. Farhat Leal EGFR-NON AF [place] 34 mL/min/1.73m2 Critically low >=60 [facility] Comment on above: Performed By: #### B MP ####[facility] Iudmuawcnr6602 [place] [phone]. Farhat Leal Glucose [Mass/Vol] 314 mg/dL Critically high 74-106 [facility] Comment on above: Performed By: #### B MP ####[facility] Cevkkhhihd0934[address] [place], [place] [address]Dr. Farhat Leal Potassium [Moles/Vol] 4.7 mmol/L Normal 3.5-5.1 [facility] Comment on above: Performed By: #### B MP ####[facility] Ubizvjdzlw415[address] [place], [place] [address]Dr. Farhat Leal Sodium [Moles/Vol] 127 mmol/L Critically low 136-145 [facility] Comment on above: Performed By: #### B MP ####[facility] Krxbsirvmb[address] [place], [place] [address]Dr. Farhat Leal Urea nitrogen [Mass/Vol] 79.0 mg/dL Critically high 7.0-18.0 [facility] Comment on above: Result Comment: repe ated Performed By: #### B MP ####[facility] Pfakarrmua[address] [place], [place] [address]Dr. Farhat Leal Urea nitrogen/Creatinine [Mass ratio] 41.4 mg/mg Normal [facility] Comment on above: Performed By: #### B MP ####[facility] Ynovigxkpf[address] [place], [place] [address]Dr. Farhat Leal PTT HEPARIN MONITORon 2021 aPTT Coag (Bld) [Time] 42.7 s Normal 39.5-54.2 [facility] Comment on above: Performed By: #### P TTHEP ####[facility] Pepjgijjmx1841 [place] [address]Dr. Farhat Leal aPTT Coag (Bld) [Time] 56.7 s Critically high 39.5-54. 2 [facility] Comment on above: Performed By: #### P TTHEP ####[facility] Xnagjoyoda[address] [place], [place] [address]Dr. Farhat Leal CBC AUTO DIFFon 09-23-2021 BASO # 0.1 103/ul Normal 0.0-0.1 [facility] Comment on above: Performed By: #### C BC ####[facility] Eddqblwydm[address] [place], [place] [address]Dr. Farhat Leal Basophils/100 WBC (Bld) 0.6 % Normal 0.2-2.0 [facility] Comment on above: Performed By: #### C BC ####[facility] Hccepzbnmj477[address] [place], [place] [address]Dr. Farhat Leal EO # 0.2 103/ul Normal 0.0-0.7 [facility] Comment on above: Performed By: #### C BC ####[facility] Tbmwiyzgsv38[address] [place], [place] [address]Dr. Farhat Leal Eosinophils/100 WBC (Bld) 2.6 % Normal 0.9-7.0 [facility] Comment on above: Performed By: #### C BC ####[facility] Jgqslbozop368[address] [place], [place] [address]Dr. Farhat Leal Erythrocyte distribution width (RBC) [Ratio] 12.4 % Normal 11.0-15.0 [facility] Comment on above: Performed By: #### C BC ####[facility] Nahgqbgypm80[address] [place], [place] [address]Dr. Farhta Leal Hematocrit (Bld) [Volume fraction] 38.4 % Critically low 42.0-54.0 [facility] Comment on above: Performed By: #### C BC ####[facility] Lxlxsphtjp6052 [place] [address]Dr. Farhat Leal Hemoglobin (Bld) [Mass/Vol] 12.8 g/dL Critically low 14.0-18.0 [facility] Comment on above: Performed By: #### C BC ####[facility] Bmwixrpzda4514 [place] [phone]. Farhat Leal IG # 0.06 10e3/ul Critically high 0.00-0.03 [facility] Comment on above: Performed By: #### C BC ####[facility] Eeoalxhicp9743 [place] [phone]. Farhat Leal IG % 0.8 % Critically high 0.0-0.5 [facility] Comment on above: Performed By: #### C BC ####[facility] Muvskhsmgb7[address] [place], [place] [address]Dr. Farhat Leal LYMPH # 1.5 103/ul Normal 1.2-3.8 [facility] Comment on above: Performed By: #### C BC ####[facility] Hahppvigfy[address] [place], [place] [address]Dr. Farhat Leal Lymphocytes/100 WBC (Bld) 19.7 % Critically low 20.5-60.0 [facility] Comment on above: Performed By: #### C BC ####[facility] Ovplisykzn78[address] [place] [address]Dr. Farhat Leal MANUAL DIFF REQ NO Normal [facility] Comment on above: Performed By: #### C BC ####[facility] Vyqnzdkomh2622 [place] [address]Dr. Farhat Leal MCH (RBC) [Entitic mass] 31.6 pg Normal 25.9-34.0 [facility] Comment on above: Performed By: #### C BC ####[facility] Clmnxtvxvw328[address] [place], [place] [address]Dr. Farhat Leal MCHC (RBC) [Mass/Vol] 33.3 g/dL Normal 29.9-35.2 [facility] Comment on above: Performed By: #### C BC ####[facility] Rfoqikoqnz4524 [place] [phone]. Farhat Leal MCV (RBC) [Entitic vol] 94.8 fL Critically high 80.0-94.0 [facility] Comment on above: Performed By: #### C BC ####[facility] Tabnosxadb7073 [place] [phone]. Farhat Leal MONO # 1.0 103/ul Critically high 0.3-0.8 [facility] Comment on above: Performed By: #### C BC ####[facility] Apsctwyvit6513 [place] [phone]. Farhat Leal Monocytes/100 WBC (Bld) 13.0 % Critically high 1.7-12.0 [facility] Comment on above: Performed By: #### C BC ####[facility] Xlrelvqkws6735[address] [place], [place] [address]Dr. Farhat Leal NEUT # 4.9 103/ul Normal 1.4-6.5 [facility] Comment on above: Performed By: #### C BC ####[facility] Zuddxbgwoj375[address] [place], [place] [address]Dr. Farhat Leal Neutrophils/100 WBC (Bld) 63.3 % Normal 43.0-75.0 [facility] Comment on above: Performed By: #### C BC ####[facility] Obokevzusn7916 [place] [phone]. Farhat Leal Platelet mean volume (Bld) [Entitic vol] 10.7 fL Normal 9.5-13.5 [facility] Comment on above: Performed By: #### C BC ####[facility] Cliqhtjnju7257 [place] [phone]. Farhat Leal PLT 205 103/ul Normal 150-450 [facility] Comment on above: Performed By: #### C BC ####[facility] Czjopyqdam[address] [place], [place] [address]Dr. Farhat Leal RBC 4.05 106/ul Critically low 4.70-6.10 [facility] Comment on above: Performed By: #### C BC ####[facility] Dbuqmeceor7992 [place] [address]Dr. Farhat Elvis WBC 7.7 103/ul Normal 4.0-11.0 [facility] Comment on above: Performed By: #### C BC ####[facility] Qcqxozxflv725[address] [place], [place] [address]Dr. Madelynlorri Leal PROF CHEM 8 (BAS METB)on Anion gap [Moles/Vol] 15.5 mmol/L Normal [facility] Comment on above: Performed By: #### B MP ####[facility] Wvdxxicgqx[address] [place], [place] [address]Dr. Farhat Leal Calcium [Mass/Vol] 9.1 mg/dL Normal 8.5-10.1 [facility] Comment on above: Performed By: #### B MP ####[facility] Oyliodmmcm450[address] [place], [place] [address]Dr. Farhat Leal Chloride [Moles/Vol] 92 mmol/L Critically low 98-107 [facility] Comment on above: Performed By: #### B MP ####[facility] Grrvgyidjv1230[address] [place], [place] [address]Dr. Farhat Leal CO2 [Moles/Vol] 28.5 mmol/L Normal 21.0-32.[address] [facility] Comment on above: Performed By: #### B MP ####[facility] Uylxxctqzx482[address] [place], [place] [address]Dr. Farhat Leal Creatinine [Mass/Vol] 1.84 mg/dL Critically high 0.70-1.30 [facility] Comment on above: Performed By: #### B MP ####[facility] Fodjhsgwgm124[address] [place], [place] [address]Dr. Farhat Leal EGFR-AF [place] 44 mL/min/1.73m2 Critically low >=60 [facility] Comment on above: Performed By: #### B MP ####[facility] Pdqtsdiiio228[address] [place], [place] [address]Dr. Farhat Leal EGFR-NON AF [place] 36 mL/min/1.73m2 Critically low >=60 [facility] Comment on above: Performed By: #### B MP ####[facility] Ksabksrcyu2974 [place] [address]Dr. Farhat Leal Glucose [Mass/Vol] 267 mg/dL Critically high 74-106 T [facility] Comment on above: Performed By: #### B MP ####[facility] Zvywbegzcq6920 [place] [address]Dr. Farhat Leal Potassium [Moles/Vol] 5.0 mmol/L Normal 3.5-5.1 [facility] Comment on above: Performed By: #### B MP ####[facility] Fvfwjbxojr0840[address] [place], [place] [address]Dr. Farhat Leal Sodium [Moles/Vol] 131 mmol/L Critically low 136-145 [facility] Comment on above: Performed By: #### B MP ####[facility] Pcvmrutmcl9799[address] [place], [place] [address]Dr. Farhat Leal Urea nitrogen [Mass/Vol] 76.0 mg/dL Critically high 7.0-18.0 [facility] Comment on above: Performed By: #### B MP ####[facility] Qryolznpxt770[address] [place], [place] [address]Dr. Farhat Leal Urea nitrogen/Creatinine [Mass ratio] 41.3 mg/mg Normal [facility] Comment on above: Performed By: #### B MP ####[facility] Viaertkzlv745[address] [place], [place] [address]Dr. Farhat Leal PTT HEPARIN MONITORon 2021 aPTT Coag (Bld) [Time] 57.2 s Critically high 39.5-54. 2 [facility] Comment on above: Performed By: #### P TTHEP ####[facility] Xifgiwvcbh988[address] [place], [place] [address]Dr. Farhat Leal aPTT Coag (Bld) [Time] 74.7 s Critically high 39.5-54. 2 [facility] Comment on above: Result Comment: repe ated Performed By: #### P TTHEP ####[facility] Mxeyhsopve4470[address] [place], [place] [address]Dr. Farhat Leal aPTT Coag (Bld) [Time] 45.5 s Normal 39.5-54.2 [facility] Comment on above: Performed By: #### P TTHEP ####[facility] Gdtdjmvhhi6025[address] [place], [place] [address]Dr. Farhat Leal CBC AUTO DIFFon 09-22-2021 BASO # 0.1 103/ul Normal 0.0-0.1 [facility] Comment on above: Performed By: #### C BC ####[facility] Wprdaqvvks4325[address] [place], [place] [address]Dr. Farhat Elvis Basophils/100 WBC (Bld) 0.7 % Normal 0.2-2.0 [facility] Comment on above: Performed By: #### C BC ####[facility] Aivgsejcyb1636[address] [place], [place] [address]Dr. Farhat Leal EO # 0.3 103/ul Normal 0.0-0.7 [facility] Comment on above: Performed By: #### C BC ####[facility] Npvrdatkba[address] [place], [place] [address]Dr. Madelynlorri Leal Eosinophils/100 WBC (Bld) 3.2 % Normal 0.9-7.0 [facility] Comment on above: Performed By: #### C BC ####[facility] Pujcuadapm1767[address] [place], [place] [address]Dr. Farhat Elal Erythrocyte distribution width (RBC) [Ratio] 12.5 % Normal 11.0-15.0 [facility] Comment on above: Performed By: #### C BC ####[facility] Cekqpimtgl23[address] [place], [place] [address]Dr. Madelynlorri Leal Hematocrit (Bld) [Volume fraction] 40.5 % Critically low 42.0-54.0 [facility] Comment on above: Performed By: #### C BC ####[facility] Gotxlhzokw7[address] [place], [place] [address]Dr. Farhat Leal Hemoglobin (Bld) [Mass/Vol] 13.4 g/dL Critically low 14.0-18.0 [facility] Comment on above: Performed By: #### C BC ####[facility] Ippefjelmh3022 [place] [phone]. Farhat Leal IG # 0.11 10e3/ul Critically high 0.00-0.03 [facility] Comment on above: Performed By: #### C BC ####[facility] Vdllfvcllv0548 [place] [phone]. Farhat Leal IG % 1.3 % Critically high 0.0-0.5 [facility] Comment on above: Performed By: #### C BC ####[facility] Hcsxhkkeoj3845 [place] [phone]. Farhat Leal LYMPH # 1.7 103/ul Normal 1.2-3.8 [facility] Comment on above: Performed By: #### C BC ####[facility] Qzhgonaiof4441 [place] [address]Dr. Madelynlorri Leal Lymphocytes/100 WBC (Bld) 19.6 % Critically low 20.5-60.0 [facility] Comment on above: Performed By: #### C BC ####[facility] Lbnylvijxa3763 [place] [address]Dr. Farhat Leal MANUAL DIFF REQ NO Normal [facility] Comment on above: Performed By: #### C BC ####[facility] Avgdsgricd4132 [place] [address]Dr. Farhat Leal MCH (RBC) [Entitic mass] 31.1 pg Normal 25.9-34.0 [facility] Comment on above: Performed By: #### C BC ####[facility] Covrkkrogx9416 [place] [address]Dr. Farhat Leal MCHC (RBC) [Mass/Vol] 33.1 g/dL Normal 29.9-35.2 [facility] Comment on above: Performed By: #### C BC ####[facility] Crrdgymtnj7951 [place] [address]Dr. Farhat Leal MCV (RBC) [Entitic vol] 94.0 fL Normal 80.0-94.0 [facility] Comment on above: Performed By: #### C BC ####[facility] Gkqvicvzak1825 [place] [id number]. Farhat Leal MONO # 1.1 103/ul Critically high 0.3-0.8 [facility] Comment on above: Performed By: #### C BC ####[facility] Ufmvasghzp7048 [place] [phone]. Farhat Leal Monocytes/100 WBC (Bld) 12.7 % Critically high 1.7-12.0 [facility] Comment on above: Performed By: #### C BC ####[facility] Rrcobnrlvm4737 [place] [phone]. Farhat Leal NEUT # 5.3 103/ul Normal 1.4-6.5 [facility] Comment on above: Performed By: #### C BC ####[facility] Ginycemxri8491 [place] [id number]. Farhat Leal Neutrophils/100 WBC (Bld) 62.5 % Normal 43.0-75.0 [facility] Comment on above: Performed By: #### C BC ####[facility] Pqkwqzeica3059 [place] [phone]. Farhat Leal Platelet mean volume (Bld) [Entitic vol] 10.1 fL Normal 9.5-13.5 [facility] Comment on above: Performed By: #### C BC ####[facility] Yselntcqft6566 [place] [phone]. Farhat Leal PLT 220 103/ul Normal 150-450 [facility] Comment on above: Performed By: #### C BC ####[facility] Bfxyjfszvd2797 [place] [phone]. Farhat Leal RBC 4.31 106/ul Critically low 4.70-6.10 [facility] Comment on above: Performed By: #### C BC ####[facility] Vtikbskqxd9994 [place] [phone]. Farhat Leal WBC 8.4 103/ul Normal 4.0-11.0 [facility] Comment on above: Performed By: #### C BC ####[facility] Yrkvosnygx4641 [place] [address]Dr. Farhat Leal PROF CHEM 8 (BAS METB)on Anion gap [Moles/Vol] 15.5 mmol/L Normal [facility] Comment on above: Performed By: #### B MP ####[facility] Cyvsuoyjwy[address] [place], [place] [address]Dr. Farhat Leal Calcium [Mass/Vol] 8.9 mg/dL Normal 8.5-10.1 [facility] Comment on above: Performed By: #### B MP ####[facility] Nlcfczqqtu25[address] [place], [place] [address]Dr. Farhat Leal Chloride [Moles/Vol] 92 mmol/L Critically low 98-107 [facility] Comment on above: Performed By: #### B MP ####[facility] Vdahtizhel1322[address] [place], [place] [address]Dr. Farhat Leal CO2 [Moles/Vol] 25.7 mmol/L Normal 21.0-32.[address] [facility] Comment on above: Performed By: #### B MP ####[facility] Mzjjlogght97[address] [place], [place] [address]Dr. Farhat Leal Creatinine [Mass/Vol] 1.85 mg/dL Critically high 0.70-1.30 [facility] Comment on above: Performed By: #### B MP ####[facility] Crotafhkvn[address] [place], [place] [address]Dr. Farhat Leal EGFR-AF [place] 43 mL/min/1.73m2 Critically low >=60 [facility] Comment on above: Performed By: #### B MP ####[facility] Bithfkpwca00[address] [place], [place] [address]Dr. Farhat Leal EGFR-NON AF [place] 36 mL/min/1.73m2 Critically low >=60 [facility] Comment on above: Performed By: #### B MP ####[facility] Pdiflcjwrj[address] [place], [place] [address]Dr. Farhat Leal Glucose [Mass/Vol] 410 mg/dL Critically high 74-106 [facility] Comment on above: Performed By: #### B MP ####[facility] Zjbvvakrwc[address] [place], [place] [address]Dr. Farhat Leal Potassium [Moles/Vol] 5.2 mmol/L Critically high 3.5-5.1 [facility] Comment on above: Performed By: #### B MP ####[facility] [address]fr[address] [place], [place] [address]Dr. Farhat Leal Sodium [Moles/Vol] 128 mmol/L Critically low 136-145 [facility] Comment on above: Performed By: #### B MP ####[facility] Vxjhtnmmew[address] [place], [place] [address]Dr. Farhat Leal Urea nitrogen [Mass/Vol] 75.0 mg/dL Critically high 7.0-18.0 [facility] Comment on above: Performed By: #### B MP ####[facility] Rqioybfsyz[address] [place], [place] [address]Dr. Farhat Leal Urea nitrogen/Creatinine [Mass ratio] 40.5 mg/mg Normal [facility] Comment on above: Performed By: #### B MP ####[facility] Irkhfcecge90[address] [place], [place] [address]Dr. Farhat Leal PTT HEPARIN MONITORon 2021 aPTT Coag (Bld) [Time] 51.2 s Normal 39.5-54.2 [facility] Comment on above: Performed By: #### P TTHEP ####[facility] Imzwyrudbu24[address] [place], [place] [address]Dr. Farhat Leal aPTT Coag (Bld) [Time] 55.6 s Critically high 39.5-54. 2 [facility] Comment on above: Performed By: #### P TTHEP ####[facility] Sqqxxpsjid9[address] [place], [place] [address]Dr. Farhat Leal aPTT Coag (Bld) [Time] 46.1 s Normal 39.5-54.2 [facility] Comment on above: Performed By: #### P TTHEP ####[facility] Aaduguvnvx[address] [place], [place] [address]Dr. Farhat Leal aPTT Coag (Bld) [Time] 53.8 s Normal 39.5-54.2 [facility] Comment on above: Performed By: #### P TTHEP ####[facility] Hrahkdiarh4[address] [place] [id number]. Farhat Leal CBC AUTO DIFFon 09-21-2021 BASO # 0.1 103/ul Normal 0.0-0.1 [facility] Comment on above: Performed By: #### C BC ####[facility] Jcydrqcufl163[address] [place], [place] [address]Dr. Farhat Elvis Basophils/100 WBC (Bld) 0.8 % Normal 0.2-2.0 [facility] Comment on above: Performed By: #### C BC ####[facility] Coqrkfgrde8[address] [place], [place] [address]Dr. Farhat Leal EO # 0.4 103/ul Normal 0.0-0.7 [facility] Comment on above: Performed By: #### C BC ####[facility] Shdukeljlo225[address] [place], [place] [address]Dr. Farhat Leal Eosinophils/100 WBC (Bld) 4.3 % Normal 0.9-7.0 [facility] Comment on above: Performed By: #### C BC ####[facility] [address] [place], [place] [id number]. Farhat Leal Erythrocyte distribution width (RBC) [Ratio] 12.5 % Normal 11.0-15.0 [facility] Comment on above: Performed By: #### C BC ####[facility] Zkvglxaxey[address] [place], [place] [id number]. Farhat Leal Hematocrit (Bld) [Volume fraction] 40.8 % Critically low 42.0-54.0 [facility] Comment on above: Performed By: #### C BC ####[facility] Flaimxvrth[address] [place], [place] [address]Dr. Farhat Leal Hemoglobin (Bld) [Mass/Vol] 13.5 g/dL Critically low 14.0-18.0 [facility] Comment on above: Performed By: #### C BC ####[facility] Jrlcwysazb[address] [place] [id number]. Farhat Leal IG # 0.10 10e3/ul Critically high 0.00-0.03 [facility] Comment on above: Performed By: #### C BC ####[facility] Olvpogcwps7432 [place] [phone]. Farhat Leal IG % 1.2 % Critically high 0.0-0.5 [facility] Comment on above: Performed By: #### C BC ####[facility] Yfmfahcjig[address] [place] [address]Dr. Farhat Leal LYMPH # 1.3 103/ul Normal 1.2-3.8 [facility] Comment on above: Performed By: #### C BC ####[facility] Eirqixyeut[address] [place] [address]Dr. Farhat Leal Lymphocytes/100 WBC (Bld) 15.4 % Critically low 20.5-60.0 [facility] Comment on above: Performed By: #### C BC ####[facility] Dfxffrrxxw6704 [place] [address]Dr. Farhat Leal MANUAL DIFF REQ NO Normal [facility] Comment on above: Performed By: #### C BC ####[facility] Eylybdrqsh5224 [place] [address]Dr. Farhat Leal MCH (RBC) [Entitic mass] 31.0 pg Normal 25.9-34.0 [facility] Comment on above: Performed By: #### C BC ####[facility] Qinxdbehax2432[address] [place], [place] [address]Dr. Farhat Leal MCHC (RBC) [Mass/Vol] 33.1 g/dL Normal 29.9-35.2 [facility] Comment on above: Performed By: #### C BC ####[facility] Pisosjwcty9[address] [place] [address]Dr. Farhat Leal MCV (RBC) [Entitic vol] 93.8 fL Normal 80.0-94.0 [facility] Comment on above: Performed By: #### C BC ####[facility] Uvpfbpofnr2769 [place] [phone]. Farhat Leal MONO # 1.2 103/ul Critically high 0.3-0.8 [facility] Comment on above: Performed By: #### C BC ####[facility] Bmuogbcqzs3282 [place] [phone]. Farhat Leal Monocytes/100 WBC (Bld) 13.6 % Critically high 1.7-12.0 [facility] Comment on above: Performed By: #### C BC ####[facility] Wydbighvoi6400 [place] [phone]. Farhat Leal NEUT # 5.5 103/ul Normal 1.4-6.5 [facility] Comment on above: Performed By: #### C BC ####[facility] Owzqkyvaig6646 [place] [phone]. Farhat Leal Neutrophils/100 WBC (Bld) 64.7 % Normal 43.0-75.0 [facility] Comment on above: Performed By: #### C BC ####[facility] Wngfshcwwt7052 [place] [phone]. Farhat Leal Platelet mean volume (Bld) [Entitic vol] 9.8 fL Normal 9.5-13.5 [facility] Comment on above: Performed By: #### C BC ####[facility] Wbjbggkenj0168 [place] [phone]. Farhat Leal PLT 206 103/ul Normal 150-450 [facility] Comment on above: Performed By: #### C BC ####[facility] Pjsvxlymmr9114 [place] [phone]. Farhat Leal RBC 4.35 106/ul Critically low 4.70-6.10 [facility] Comment on above: Performed By: #### C BC ####[facility] Tcnsswcius5942 [place] [phone]. Farhat Leal WBC 8.4 103/ul Normal 4.0-11.0 [facility] Comment on above: Performed By: #### C BC ####[facility] Ugeqagagyv4098 [place] [address]Dr. Farhat Lael PROF CHEM 8 (BAS METB)on Anion gap [Moles/Vol] 12.3 mmol/L Normal [facility] Comment on above: Performed By: #### B MP ####[facility] Hblpncorwl1881 [place] [address]Dr. Farhat Leal Calcium [Mass/Vol] 8.6 mg/dL Normal 8.5-10.1 [facility] Comment on above: Performed By: #### B MP ####[facility] Suwlgpwcyi1810[address] [place], [place] [address]Dr. Farhat Leal Chloride [Moles/Vol] 94 mmol/L Critically low 98-107 [facility] Comment on above: Performed By: #### B MP ####[facility] Mwunfoqkkj1417[address] [place], [place] [address]Dr. Farhat Leal CO2 [Moles/Vol] 30.8 mmol/L Normal 21.0-32.[address] [facility] Comment on above: Performed By: #### B MP ####[facility] Bcswlsnsab2699[address] [place], [place] [address]Dr. Farhat Leal Creatinine [Mass/Vol] 1.99 mg/dL Critically high 0.70-1.30 [facility] Comment on above: Performed By: #### B MP ####[facility] Gabsvjlrjk692[address] [place], [place] [address]Dr. Farhat Leal EGFR-AF [place] 40 mL/min/1.73m2 Critically low >=60 [facility] Comment on above: Performed By: #### B MP ####[facility] Ewwuqdrees310[address] [place], [place] [address]Dr. Farhat Leal EGFR-NON AF [place] 33 mL/min/1.73m2 Critically low >=60 [facility] Comment on above: Performed By: #### B MP ####[facility] Cmlkrywuwx059[address] [place], [place] [address]Dr. Farhat Leal Glucose [Mass/Vol] 264 mg/dL Critically high 74-106 [facility] Comment on above: Performed By: #### B MP ####[facility] Oklumqjiaw435[address] [place], [place] [address]Dr. Farhat Leal Potassium [Moles/Vol] 5.1 mmol/L Normal 3.5-5.1 [facility] Comment on above: Performed By: #### B MP ####[facility] Dxtvokldsa817[address] [place], [place] [address]Dr. Farhat Leal Sodium [Moles/Vol] 132 mmol/L Critically low 136-145 [facility] Comment on above: Performed By: #### B MP ####[facility] Uikblsucns888[address] [place], [place] [address]Dr. Farhat Leal Urea nitrogen [Mass/Vol] 72.0 mg/dL Critically high 7.0-18.0 [facility] Comment on above: Performed By: #### B MP ####[facility] Abfyyfjudm8527[address] [place], [place] [address]Dr. Farhat Leal Urea nitrogen/Creatinine [Mass ratio] 36.2 mg/mg Normal [facility] Comment on above: Performed By: #### B MP ####[facility] Fvkunkwsot486493 [address] [place], [place] [address]Dr. Farhat Leal PTT HEPARIN MONITORon 2021 aPTT Coag (Bld) [Time] 45.3 s Normal 39.5-54.2 [facility] Comment on above: Performed By: #### P TTHEP ####[facility] Ynseeyonrj[address] [place], [place] [address]Dr. Farhat Leal aPTT Coag (Bld) [Time] 68.0 s Critically high 39.5-54. 2 [facility] Comment on above: Performed By: #### P TTHEP ####[facility] Wwddjxiycq4916[address] [place], [place] [address]Dr. Farhat Leal aPTT Coag (Bld) [Time] 69.4 s Critically high 39.5-54. 2 [facility] Comment on above: Performed By: #### P TTHEP ####[facility] Vttwyetjvv433[address] [place], [place] [address]Dr. Farhat Leal aPTT Coag (Bld) [Time] 53.5 s Normal 39.5-54.2 [facility] Comment on above: Performed By: #### P TTHEP ####[facility] Osqjndjjts1525[address] [place], [place] [address]Dr. Farhat Elvis aPTT Coag (Bld) [Time] 126.9 s Critically high 39.5-54. 2 [facility] Comment on above: Performed By: #### P TTHEP ####[facility] Ecrgeogabr5685[address] [place], [place] [address]Dr. Farhat Elvis CBC AUTO DIFFon 09-20-2021 BASO # 0.1 103/ul Normal 0.0-0.1 [facility] Comment on above: Performed By: #### C BC ####[facility] Fiocawtduk9[address] [place], [place] [address]Dr. Farhat Leal Basophils/100 WBC (Bld) 0.7 % Normal 0.2-2.0 [facility] Comment on above: Performed By: #### C BC ####[facility] Yhdvcosgbu91979[address] [place], [place] [address]Dr. Madelynlorri Leal EO # 0.2 103/ul Normal 0.0-0.7 [facility] Comment on above: Performed By: #### C BC ####[facility] Dkgwbhwbur0510[address] [place], [place] [address]Dr. Farhat Leal Eosinophils/100 WBC (Bld) 3.2 % Normal 0.9-7.0 [facility] Comment on above: Performed By: #### C BC ####[facility] Bdaevkkega224[address] [place], [place] [address]Dr. Farhat Leal Erythrocyte distribution width (RBC) [Ratio] 12.4 % Normal 11.0-15.0 [facility] Comment on above: Performed By: #### C BC ####[facility] Kuultzalba9732[address] [place], [place] [address]Dr. Farhat Leal Hematocrit (Bld) [Volume fraction] 40.1 % Critically low 42.0-54.0 [facility] Comment on above: Performed By: #### C BC ####[facility] Ecsilecujt68[address] [place] [phone]. Farhat Leal Hemoglobin (Bld) [Mass/Vol] 13.4 g/dL Critically low 14.0-18.0 [facility] Comment on above: Performed By: #### C BC ####[facility] Pzqlvlqigz5501 [place] [phone]. Farhat Leal IG # 0.08 10e3/ul Critically high 0.00-0.03 [facility] Comment on above: Performed By: #### C BC ####[facility] Lkusxemmrb6846 [place] [phone]. Farhat Leal IG % 1.1 % Critically high 0.0-0.5 [facility] Comment on above: Performed By: #### C BC ####[facility] Whxsabveni4776 [place] [address]Dr. Farhat Leal LYMPH # 1.3 103/ul Normal 1.2-3.8 [facility] Comment on above: Performed By: #### C BC ####[facility] Jsrgpcvlzx8643 [place] [address]Dr. Farhat Leal Lymphocytes/100 WBC (Bld) 17.3 % Critically low 20.5-60.0 [facility] Comment on above: Performed By: #### C BC ####[facility] Twnorcfhwx7237 [place] [address]Dr. Farhat Leal MANUAL DIFF REQ NO Normal [facility] Comment on above: Performed By: #### C BC ####[facility] Sastvwfaxg7012 [place] [phone]. Farhat Leal MCH (RBC) [Entitic mass] 31.2 pg Normal 25.9-34.0 [facility] Comment on above: Performed By: #### C BC ####[facility] Xjuuxhcqcq4470 [place] [phone]. Farhat Leal MCHC (RBC) [Mass/Vol] 33.4 g/dL Normal 29.9-35.2 [facility] Comment on above: Performed By: #### C BC ####[facility] Khacuemkcl2465 [place] [phone]. Farhat Leal MCV (RBC) [Entitic vol] 93.3 fL Normal 80.0-94.0 [facility] Comment on above: Performed By: #### C BC ####[facility] Dxdjevznvx5350 [place] [phone]. Farhat Leal MONO # 0.9 103/ul Critically high 0.3-0.8 [facility] Comment on above: Performed By: #### C BC ####[facility] Ongznkbcih3609 [place] [phone]. Farhat Leal Monocytes/100 WBC (Bld) 12.4 % Critically high 1.7-12.0 [facility] Comment on above: Performed By: #### C BC ####[facility] Rodtdranwk699[address] [place], [place] [address]Dr. Farhat Leal NEUT # 4.7 103/ul Normal 1.4-6.5 [facility] Comment on above: Performed By: #### C BC ####[facility] Obswxinyvf54[address] [place], [place] [address]Dr. Farhat Leal Neutrophils/100 WBC (Bld) 65.3 % Normal 43.0-75.0 [facility] Comment on above: Performed By: #### C BC ####[facility] Dtaiwrqfcm6[address] [place], [place] [address]Dr. Farhat Leal Platelet mean volume (Bld) [Entitic vol] 9.9 fL Normal 9.5-13.5 [facility] Comment on above: Performed By: #### C BC ####[facility] Hpyvcqqweb6317 [place] [id number]. Farhat Leal PLT 180 103/ul Normal 150-450 [facility] Comment on above: Performed By: #### C BC ####[facility] Efjlwjuekv0143 [place] [phone]. Farhat Leal RBC 4.30 106/ul Critically low 4.70-6.10 [facility] Comment on above: Performed By: #### C BC ####[facility] Bwizggvlhz8459 [place] [address]Dr. Farhat Leal WBC 7.2 103/ul Normal 4.0-11.0 [facility] Comment on above: Performed By: #### C BC ####[facility] Vnbjghqkfx8[address] [place], [place] [address]Dr. Farhat Elvis PTT HEPARIN MONITORon 2021 aPTT Coag (Bld) [Time] 26.7 s Critically low 39.5-54.2 [facility] Comment on above: Performed By: #### P TTHEP ####[facility] Oatkqatvfe23[address] [place], [place] [address]Dr. Farhat Elvis aPTT Coag (Bld) [Time] 121.0 s Critically high 39.5-54. 2 [facility] Comment on above: Performed By: #### P TTHEP ####[facility] Mnijmqeavh7[address] [place], [place] [address]Dr. Farhat Elvis aPTT Coag (Bld) [Time] 27.6 s Critically low 39.5-54.2 [facility] Comment on above: Performed By: #### P TTHEP ####[facility] Jpnhqhbfuh225[address] [place], [place] [address]Dr. Farhat Elvis aPTT Coag (Bld) [Time] 139.0 s Critically high 39.5-54. 2 [facility] Comment on above: Performed By: #### P TTHEP ####[facility] Qvbjmapaqr[address] [place], [place] [address]Dr. Farhat Elvis CBC AUTO DIFFon 09-19-2021 BASO # 0.0 103/ul Normal 0.0-0.1 [facility] Comment on above: Performed By: #### C BC ####[facility] Mchwuawyyh[address] [place], [place] [address]Dr. Farhat Leal Basophils/100 WBC (Bld) 0.5 % Normal 0.2-2.0 [facility] Comment on above: Performed By: #### C BC ####[facility] Zeyushhwqu8287 [place] [phone]. Farhat Leal EO # 0.2 103/ul Normal 0.0-0.7 [facility] Comment on above: Performed By: #### C BC ####[facility] Muzvsidlrn0806 [place] [phone]. Farhat Leal Eosinophils/100 WBC (Bld) 2.6 % Normal 0.9-7.0 [facility] Comment on above: Performed By: #### C BC ####[facility] Lefscwuwfp5143 [place] [address]Dr. Farhat Leal Erythrocyte distribution width (RBC) [Ratio] 12.5 % Normal 11.0-15.0 [facility] Comment on above: Performed By: #### C BC ####[facility] Omtqnkzboj6085 [place] [address]Dr. Farhat Leal Hematocrit (Bld) [Volume fraction] 39.2 % Critically low 42.0-54.0 [facility] Comment on above: Performed By: #### C BC ####[facility] Abhtqslvvi7395 [place] [address]Dr. Farhat Leal Hemoglobin (Bld) [Mass/Vol] 13.3 g/dL Critically low 14.0-18.0 [facility] Comment on above: Performed By: #### C BC ####[facility] Mnnyywiupk2547 [place] [phone]. Farhat Leal IG # 0.08 10e3/ul Critically high 0.00-0.03 [facility] Comment on above: Performed By: #### C BC ####[facility] Hatoulcdtz0403 [place] [phone]. Farhat Leal IG % 0.9 % Critically high 0.0-0.5 [facility] Comment on above: Performed By: #### C BC ####[facility] Heqsjwhxqc7967 [place] [address]Dr. Farhat Leal LYMPH # 1.5 103/ul Normal 1.2-3.8 [facility] Comment on above: Performed By: #### C BC ####[facility] Dqehhibwxx4220 [place] [phone]. Farhat Leal Lymphocytes/100 WBC (Bld) 17.2 % Critically low 20.5-60.0 [facility] Comment on above: Performed By: #### C BC ####[facility] Zhtemvhiqi6639 [place] [phone]. Farhat Elvis MANUAL DIFF REQ NO Normal [facility] Comment on above: Performed By: #### C BC ####[facility] Dedklddxta4336 [place] [phone]. Farhat Elvis MCH (RBC) [Entitic mass] 31.7 pg Normal 25.9-34.0 [facility] Comment on above: Performed By: #### C BC ####[facility] Camuqslssl2310 [place] [address]Dr. Farhat Elvis MCHC (RBC) [Mass/Vol] 33.9 g/dL Normal 29.9-35.2 [facility] Comment on above: Performed By: #### C BC ####[facility] Nporplabdt2239 [place] [phone]. Farhat Elvis MCV (RBC) [Entitic vol] 93.3 fL Normal 80.0-94.0 [facility] Comment on above: Performed By: #### C BC ####[facility] Qntaticnmh4935 [place] [phone]. Farhat Leal MONO # 1.2 103/ul Critically high 0.3-0.8 [facility] Comment on above: Performed By: #### C BC ####[facility] Jrcqtjkqzi2843 [place] [phone]. Farhat Elvis Monocytes/100 WBC (Bld) 13.7 % Critically high 1.7-12.0 [facility] Comment on above: Performed By: #### C BC ####[facility] Gpcmodbgcw6522 [place] [address]Dr. Farhat Leal NEUT # 5.5 103/ul Normal 1.4-6.5 [facility] Comment on above: Performed By: #### C BC ####[facility] Haahnbkqae3932 [place] [phone]. Farhat Leal Neutrophils/100 WBC (Bld) 65.1 % Normal 43.0-75.0 [facility] Comment on above: Performed By: #### C BC ####[facility] Pksgwxzlve8019 [place] [phone]. Farhat Leal Platelet mean volume (Bld) [Entitic vol] 9.6 fL Normal 9.5-13.5 [facility] Comment on above: Performed By: #### C BC ####[facility] Llogmpspak0737 [place] [phone]. Farhat Leal PLT 163 103/ul Normal 150-450 [facility] Comment on above: Performed By: #### C BC ####[facility] Lgopfqhugn2533 [place] [address]Dr. Farhat Leal RBC 4.20 106/ul Critically low 4.70-6.10 [facility] Comment on above: Performed By: #### C BC ####[facility] Ixjtayzzqj8382 [place] [address]Dr. Farhat Leal WBC 8.4 103/ul Normal 4.0-11.0 [facility] Comment on above: Performed By: #### C BC ####[facility] Guvcbxnsfj9828 [place] [address]Dr. Farhat Leal POINT OF CARE GLUCOSEon Glucose [Mass/Vol] 300 mg/dL Critically high 74-106 [facility] Comment on above: Performed By: #### P OCGLUC ####[facility] Lhsemntqym0020 [place] [phone]. Farhat Leal POTASSIUMon 09-19-2021 Potassium [Moles/Vol] 4.9 mmol/L Normal 3.5-5.1 [facility] Comment on above: Performed By: #### K ####[facility] Mmqioqbvhj9912 [place] [address]Dr. Farhat Leal PTT HEPARIN MONITORon 2021 aPTT Coag (Bld) [Time] 23.4 s Critically low 39.5-54.2 [facility] Comment on above: Result Comment: repe ated Performed By: #### P TTHEP ####[facility] Tyzgkbbeqp4633[address] [place], [place] [address]Dr. Farhat Leal aPTT Coag (Bld) [Time] 101.2 s Critically high 39.5-54. 2 [facility] Comment on above: Performed By: #### P TTHEP ####[facility] Ykjfxhzpvv259[address] [place], [place] [address]Dr. Farhat Leal aPTT Coag (Bld) [Time] 81.0 s Critically high 39.5-54. 2 [facility] Comment on above: Result Comment: Test Repeated. Critical Value Verified Performed By: #### P TTHEP ####[facility] Eiimtmugcy698[address] [place], [place] [address]Dr. Farhat Leal CBC AUTO DIFFon 09-18-2021 BASO # 0.0 103/ul Normal 0.0-0.1 [facility] Comment on above: Performed By: #### C BC ####[facility] Pfhoikaxyz66[address] [place], [place] [address]Dr. Farhat Leal Basophils/100 WBC (Bld) 0.4 % Normal 0.2-2.0 [facility] Comment on above: Performed By: #### C BC ####[facility] Wopwzdqcex7[address] [place], [place] [address]Dr. Farhat Leal EO # 0.1 103/ul Normal 0.0-0.7 [facility] Comment on above: Performed By: #### C BC ####[facility] Oobacqturw27[address] [place], [place] [address]Dr. Farhat Leal Eosinophils/100 WBC (Bld) 0.8 % Critically low 0.9-7.0 [facility] Comment on above: Performed By: #### C BC ####[facility] Jkbzdjnjox8516[address] [place], [place] [address]Dr. Farhat Leal Erythrocyte distribution width (RBC) [Ratio] 12.4 % Normal 11.0-15.0 [facility] Comment on above: Performed By: #### C BC ####[facility] Hsopwknhwr6488 [place] [address]Dr. Farhat Leal Hematocrit (Bld) [Volume fraction] 41.7 % Critically low 42.0-54.0 [facility] Comment on above: Performed By: #### C BC ####[facility] Bcjbclsxco4829 [place] [address]Dr. Farhat Leal Hemoglobin (Bld) [Mass/Vol] 14.1 g/dL Normal 14.0-18.0 [facility] Comment on above: Performed By: #### C BC ####[facility] Fpwyzgcgwc5364 [place] [address]Dr. Farhat Leal IG # 0.06 10e3/ul Critically high 0.00-0.03 [facility] Comment on above: Performed By: #### C BC ####[facility] Acrsedwldc[address] [place], [place] [address]Dr. Farhat Leal IG % 0.6 % Critically high 0.0-0.5 [facility] Comment on above: Performed By: #### C BC ####[facility] Estaurahfj6034 [place] [address]Dr. Farhat Leal LYMPH # 0.6 103/ul Critically low 1.2-3.8 [facility] Comment on above: Performed By: #### C BC ####[facility] Iynadqzitm2799 [place] [address]Dr. Farhat Elvis Lymphocytes/100 WBC (Bld) 6.5 % Critically low 20.5-60.0 [facility] Comment on above: Performed By: #### C BC ####[facility] Fciidegugd4925 [place] [address]Dr. Farhat Leal MANUAL DIFF REQ NO Normal [facility] Comment on above: Performed By: #### C BC ####[facility] Ivodljqdop8675 [place] [address]Dr. Farhat Elvis MCH (RBC) [Entitic mass] 31.6 pg Normal 25.9-34.0 [facility] Comment on above: Performed By: #### C BC ####[facility] Fgmshosmni4221 [place] [phone]. Farhat Elvis MCHC (RBC) [Mass/Vol] 33.8 g/dL Normal 29.9-35.2 [facility] Comment on above: Performed By: #### C BC ####[facility] Kubsnrzhna6826 [place] [phone]. Farhat Leal MCV (RBC) [Entitic vol] 93.5 fL Normal 80.0-94.0 [facility] Comment on above: Performed By: #### C BC ####[facility] [address] [id number]. Farhat Leal MONO # 1.0 103/ul Critically high 0.3-0.8 [facility] Comment on above: Performed By: #### C BC ####[facility] [address] [place], [place] [address]Dr. Farhat Leal Monocytes/100 WBC (Bld) 10.4 % Normal 1.7-12.0 [facility] Comment on above: Performed By: #### C BC ####[facility] [address] [place], [place] [id number]. Farhat Leal NEUT # 7.8 103/ul Critically high 1.4-6.5 [facility] Comment on above: Performed By: #### C BC ####[facility] [address] [place], [place] [id number]. Farhat Leal Neutrophils/100 WBC (Bld) 81.3 % Critically high 43.0-75.0 [facility] Comment on above: Performed By: #### C BC ####[facility] [id number] [id number] Leal Platelet mean volume (Bld) [Entitic vol] 9.9 fL Normal 9.5-13.5 [facility] Comment on above: Performed By: #### C BC ####[facility] [address] [place] [id number]. Farhat Leal PLT 169 103/ul Normal 150-450 [facility] Comment on above: Performed By: #### C BC ####[facility] Dannyrlwnh59[address] [place] [id number]. Farhat Leal RBC 4.46 106/ul Critically low 4.70-6.10 [facility] Comment on above: Performed By: #### C BC ####[facility] Aiscsmplov1071 [place] [phone]. Farhat Elvis WBC 9.6 103/ul Normal 4.0-11.0 [facility] Comment on above: Performed By: #### C BC ####[facility] Wncmulpxcx1502 [place] [id number]. Farhat Leal BASO # 0.0 103/ul Normal 0.0-0.1 [facility] Comment on above: Performed By: #### C BC ####[facility] Zbrnwzipgw[address] [place], [place] [address]Dr. Farhat Leal Basophils/100 WBC (Bld) 0.4 % Normal 0.2-2.0 [facility] Comment on above: Performed By: #### C BC ####[facility] Jdpgghzyod2518 [place] [id number]. Farhat Leal EO # 0.1 103/ul Normal 0.0-0.7 [facility] Comment on above: Performed By: #### C BC ####[facility] Ogtxpgriav9263 [place] [phone]. Farhat Leal Eosinophils/100 WBC (Bld) 1.1 % Normal 0.9-7.0 [facility] Comment on above: Performed By: #### C BC ####[facility] Fq[address]cxp[address] [place], [place] [id number]. Madelynlorri Leal Erythrocyte distribution width (RBC) [Ratio] 12.6 % Normal 11.0-15.0 [facility] Comment on above: Performed By: #### C BC ####[facility] Vsbwmlqnbu[address] [place], [place] [id number]. Farhat Leal Hematocrit (Bld) [Volume fraction] 40.8 % Critically low 42.0-54.0 [facility] Comment on above: Performed By: #### C BC ####[facility] Zcoxfribez2626 [place] [id number]. Farhat Leal Hemoglobin (Bld) [Mass/Vol] 13.6 g/dL Critically low 14.0-18.0 [facility] Comment on above: Performed By: #### C BC ####[facility] Qgeamqfxlp6580 [place] [phone]. Farhat Leal IG # 0.08 10e3/ul Critically high 0.00-0.03 [facility] Comment on above: Performed By: #### C BC ####[facility] Elhxxwydxv8025 [place] [address]Dr. Farhat Leal IG % 0.9 % Critically high 0.0-0.5 [facility] Comment on above: Performed By: #### C BC ####[facility] Szaknjlkcb5474 [place] [address]Dr. Farhat Leal LYMPH # 0.8 103/ul Critically low 1.2-3.8 [facility] Comment on above: Performed By: #### C BC ####[facility] Dlggoxjptw9853 [place] [address]Dr. Farhat Leal Lymphocytes/100 WBC (Bld) 8.7 % Critically low 20.5-60.0 [facility] Comment on above: Performed By: #### C BC ####[facility] Sffxmiexoj9[address] [place] [address]Dr. Farhat Leal MANUAL DIFF REQ NO Normal [facility] Comment on above: Performed By: #### C BC ####[facility] Fptwoozbmg2111 [place] [phone]. Farhat Leal MCH (RBC) [Entitic mass] 31.6 pg Normal 25.9-34.0 [facility] Comment on above: Performed By: #### C BC ####[facility] Hoeniyrrgd1055 [place] [phone]. Farhat Lael MCHC (RBC) [Mass/Vol] 33.3 g/dL Normal 29.9-35.2 [facility] Comment on above: Performed By: #### C BC ####[facility] Gosynmodgd9103 [place] [phone]. Farhat Leal MCV (RBC) [Entitic vol] 94.9 fL Critically high 80.0-94.0 [facility] Comment on above: Performed By: #### C BC ####[facility] Niidlbzcnx9176 [place] [phone]. Farhat Leal MONO # 1.0 103/ul Critically high 0.3-0.8 [facility] Comment on above: Performed By: #### C BC ####[facility] Sklzzesdmy2372 [place] [phone]. Farhat Leal Monocytes/100 WBC (Bld) 11.3 % Normal 1.7-12.0 [facility] Comment on above: Performed By: #### C BC ####[facility] Eyswh[address]vmxs[address] [place], [place] [address]Dr. Farhat Leal NEUT # 6.9 103/ul Critically high 1.4-6.5 [facility] Comment on above: Performed By: #### C BC ####[facility] Rguodmvgbc4273 [place] [phone]. Farhat Leal Neutrophils/100 WBC (Bld) 77.6 % Critically high 43.0-75.0 [facility] Comment on above: Performed By: #### C BC ####[facility] Zdatrdjeyv0903 [place] [phone]. Farhat Elvis Platelet mean volume (Bld) [Entitic vol] 9.7 fL Normal 9.5-13.5 [facility] Comment on above: Performed By: #### C BC ####[facility] Gffpyxmqcp3277 [place] [phone]. Farhat Elvis PLT 171 103/ul Normal 150-450 [facility] Comment on above: Performed By: #### C BC ####[facility] Lfluzxdgdg6240 [place] [phone]. Farhat Leal RBC 4.30 106/ul Critically low 4.70-6.10 [facility] Comment on above: Performed By: #### C BC ####[facility] Vppdctrlxg4789 [place], [place] [address]Hq. Farhat Leal WBC 8.9 103/ul Normal 4.0-11.0 [facility] Comment on above: Performed By: #### C BC ####[facility] Gcvaymjsmh7622 [place], [place] [address]Ml. Farhat Elvis Covid-19 PCR (CVDTBH)on SARS-CoV-2 (COVID-19) RNA JOSH+probe Ql (Unsp spec) Not detected Normal NOT DETECTED [facility] Comment on above: Result Comment: When [...] for this test is supported by the Primary Education Professor of Health and Human Service's declaration [...] be used). Performed By: #### C VDTBH ####[facility] Rvijmdmmzl1896 [place] [phone]. Madelynlorri Leal PROF 14(COMP METB)on 022 Albumin [Mass/Vol] 2.6 g/dL Critically low 3.4-5.0 [facility] Comment on above: Performed By: #### C MP ####[facility] Hqbuuetefn1839 [place] [phone]. Farhat Leal Albumin/Globulin [Mass ratio] 0.7 {ratio} Normal [facility] Comment on above: Performed By: #### C MP ####[facility] Nkcswccylu6865 [place] [phone]. Farhat Leal ALP [Catalytic activity/Vol] 88 U/L Normal 46-116 [facility] Comment on above: Performed By: #### C MP ####[facility] Fgojzlkevu9187 [place] [phone]. Farhat Leal ALT [Catalytic activity/Vol] 15 U/L Critically low 16-63 [facility] Comment on above: Performed By: #### C MP ####[facility] Yunywarfgz0187 [place] [address]Dr. Farhat Leal Anion gap [Moles/Vol] 11.7 mmol/L Normal Th e [facility] Comment on above: Performed By: #### C MP ####[facility] Whqcwlybdr1091 [place] [address]Dr. Farhat Leal AST [Catalytic activity/Vol] 25 U/L Normal 15-37 [facility] Comment on above: Performed By: #### C MP ####[facility] Fanyandeyt0192 [place] [address]Dr. Farhat Leal Bilirubin [Mass/Vol] 0.6 mg/dL Normal 0.2-1.0 [facility] Comment on above: Performed By: #### C MP ####[facility] Arznpurzpb2328 [place] [address]Dr. Farhat Leal Calcium [Mass/Vol] 8.9 mg/dL Normal 8.5-10.1 [facility] Comment on above: Performed By: #### C MP ####[facility] Fikqgvdnxh3759 [place] [address]Dr. Farhat Leal Chloride [Moles/Vol] 93 mmol/L Critically low 98-107 [facility] Comment on above: Performed By: #### C MP ####[facility] Ptydqimzix8061 [place] [address]Dr. Farhat Leal CO2 [Moles/Vol] 28.9 mmol/L Normal 21.0-32.0 The [facility] Comment on above: Performed By: #### C MP ####[facility] Imgrxqfpcs6038 [place] [address]Dr. Farhat Leal Creatinine [Mass/Vol] 2.09 mg/dL Critically high 0.70-1.30 [facility] Comment on above: Performed By: #### C MP ####[facility] Smcxrefcue8893 [place] [address]Dr. Farhat Leal EGFR-AF [place] 38 mL/min/1.73m2 Critically low >=60 [facility] Comment on above: Performed By: #### C MP ####[facility] Hsaiqbaiin2876 [place] [address]Dr. Farhat Leal EGFR-NON AF [place] 31 mL/min/1.73m2 Critically low >=60 [facility] Comment on above: Performed By: #### C MP ####[facility] Tahdxdoibo3966 [place] [address]Dr. Farhat Leal Globulin (S) [Mass/Vol] 3.7 g/dL Normal [facility] Comment on above: Performed By: #### C MP ####[facility] Bjbgjvyuls7445 [place] [address]Dr. Farhat Leal Glucose [Mass/Vol] 214 mg/dL Critically high 74-106 T [facility] Comment on above: Performed By: #### C MP ####[facility] Obovmvries3498 [place] [address]Dr. Farhat Leal Potassium [Moles/Vol] 5.6 mmol/L Critically high 3.5-5.1 [facility] Comment on above: Performed By: #### C MP ####[facility] Mdrjywqgdh4054 [place] [address]Dr. Farhat Leal Protein [Mass/Vol] 6.3 g/dL Critically low 6.4-8.2 Th [facility] Comment on above: Performed By: #### C MP ####[facility] Sfnsvdlzwn0319 [place] [address]Dr. Farhat Leal Sodium [Moles/Vol] 128 mmol/L Critically low 136-145 [facility] Comment on above: Performed By: #### C MP ####[facility] Ibbfsjpqun8341 [place] [phone]. Farhat Leal Urea nitrogen [Mass/Vol] 65.0 mg/dL Critically high 7.0-18.0 [facility] Comment on above: Performed By: #### C MP ####[facility] Chcsgdkfep8880 [place] [phone]. Farhat Elvis Urea nitrogen/Creatinine [Mass ratio] 31.1 mg/mg Normal [facility] Comment on above: Performed By: #### C MP ####[facility] Bqcqbjfhhp[address] [place], [place] [address]Dr. Farhat Elvis Albumin [Mass/Vol] 2.5 g/dL Critically low 3.4-5.0 [facility] Comment on above: Performed By: #### T MYRIAM, CMP ####[facility] Gldmnowvir[address] [place], [place] [address]Dr. Farhat Leal Albumin/Globulin [Mass ratio] 0.7 {ratio} Normal [facility] Comment on above: Performed By: #### T MYRIAM, CMP ####[facility] Meopmijijg[address] [place], [place] [address]Dr. Madelynlorri Leal ALP [Catalytic activity/Vol] 83 U/L Normal 46-116 [facility] Comment on above: Performed By: #### T MYRIAM, CMP ####[facility] Uijhuyvctl70[address] [place], [place] [address]Dr. Farhat Leal ALT [Catalytic activity/Vol] 16 U/L Normal 16-63 [facility] Comment on above: Performed By: #### T MYRIAM, CMP ####[facility] Pumgdtzmyl[address] [place], [place] [address]Dr. Farhat Elvis Anion gap [Moles/Vol] 9.7 mmol/L Normal [facility] Comment on above: Performed By: #### T SH, CMP ####[facility] Orwzbjibio446[address] [place], [place] [address]Dr. Farhat Leal AST [Catalytic activity/Vol] 27 U/L Normal 15-37 [facility] Comment on above: Performed By: #### T MYRIAM, CMP ####[facility] Zryfilotbr[address] [place], [place] [address]Dr. Farhat Leal Bilirubin [Mass/Vol] 0.5 mg/dL Normal 0.2-1.0 [facility] Comment on above: Performed By: #### T SH, CMP ####[facility] Hmgxyjrkuu[address] [place], [place] [address]Dr. Farhat Leal Calcium [Mass/Vol] 8.8 mg/dL Normal 8.5-10.1 [facility] Comment on above: Performed By: #### T SH, CMP ####[facility] Zswunclizh[address] [place], [place] [address]Dr. Farhat Leal Chloride [Moles/Vol] 95 mmol/L Critically low 98-107 [facility] Comment on above: Performed By: #### T SH, CMP ####[facility] Vevchwdtpn[address] [place], [place] [address]Dr. Farhat Leal CO2 [Moles/Vol] 30.5 mmol/L Normal 21.0-32.0 The [facility] Comment on above: Performed By: #### T MYRIAM, CMP ####[facility] Wmvfohiosd[address] [place], [place] [address]Dr. Farhat Leal Creatinine [Mass/Vol] 2.18 mg/dL Critically high 0.70-1.30 [facility] Comment on above: Performed By: #### T SH, CMP ####[facility] Afbqfgasei34[address] [place], [place] [address]Dr. Farhat Leal EGFR-AF [place] 36 mL/min/1.73m2 Critically low >=60 [facility] Comment on above: Performed By: #### T SH, CMP ####[facility] Umtfffbzkr72[address] [place], [place] [address]Dr. Farhat Leal EGFR-NON AF [place] 30 mL/min/1.73m2 Critically low >=60 [facility] Comment on above: Performed By: #### T SH, CMP ####[facility] Invmaswedw24[address] [place], [place] [address]Dr. Farhat Leal Globulin (S) [Mass/Vol] 3.5 g/dL Normal [facility] Comment on above: Performed By: #### T SH, CMP ####[facility] Vqspfuxvmg72[address] [place], [place] [address]Dr. Farhat Leal Glucose [Mass/Vol] 141 mg/dL Critically high 74-106 T [facility] Comment on above: Performed By: #### T SH, CMP ####[facility] Dhwezgdecu350[address] [place], [place] [address]Dr. Farhat Leal Potassium [Moles/Vol] 5.2 mmol/L Critically high 3.5-5.1 [facility] Comment on above: Performed By: #### T SH, CMP ####[facility] Xgvvbvcskn[address] [place], [place] [address]Dr. Farhat Leal Protein [Mass/Vol] 6.0 g/dL Critically low 6.4-8.2 [facility] Comment on above: Performed By: #### T SH, CMP ####[facility] Grhqkjftwt254[address] [place], [place] [address]Dr. Farhat Leal Sodium [Moles/Vol] 130 mmol/L Critically low 136-145 [facility] Comment on above: Performed By: #### T SH, CMP ####[facility] Zjgexudzxn220[address] [place], [place] [address]Dr. Farhat Elvis Urea nitrogen [Mass/Vol] 63.0 mg/dL Critically high 7.0-18.0 [facility] Comment on above: Performed By: #### T SH, CMP ####[facility] Tqmmxcpvfs406[address] [place], [place] [address]Dr. Farhat Elvis Urea nitrogen/Creatinine [Mass ratio] 28.9 mg/mg Normal [facility] Comment on above: Performed By: #### T SH, CMP ####[facility] Pxnaomzaku[address] [place], [place] [address]Dr. Farhat Leal PROTIMEon 09-18-2021 INR Coag (PPP) [Relative time] 1.06 {INR} Normal [facility] Comment on above: Performed By: #### P T, PTT ####[facility] Ftdhcldfgy[address] [place], [place] [address]Dr. Farhat Leal INR GUIDELINES SEE BELOW Normal [facility] Comment on above: Result Comment: MALINA RED INR: 2.0 - 3.0 CONDITIONS NOT LISTED BELOW 2.5 - 3.5 FOR PROSTHETIC HEART VALVE REPLACEMENT 2.5 - 3.5 RECURRENT THROMBOSIS Performed By: #### P T, PTT ####[facility] Cixylgxdxl6149 [place] [phone]. Madelynlorri Elvis PT Coag (PPP) [Time] 11.4 s Normal 9.0-11.6 [facility] Comment on above: Performed By: #### P T, PTT ####[facility] Ukntdphbbt5697 [place] [address]Dr. Madelynlorri Elvis PTTon 09-18-2021 aPTT Coag (Bld) [Time] 27.9 s Normal 22.3-36.2 Th [facility] Comment on above: Performed By: #### P T, PTT ####[facility] Topkuoujsd5310 [place] [address]Dr. Farhat Leal TSHon 09-18-2021 TSH 7.099 uIU/mL Critically high 0.358-3.740 [facility] Comment on above: Performed By: #### T SH, CMP ####[facility] Ukdjmcdfmk[address] [place], [place] [address]Dr. Farhat Leal US SALOME DOP LEG RTon 09-19-19 US SALOME DOP LEG RT Normal [facility] XR CHEST 1 Von 09-18-2021 XR CHEST 1 V Normal [facility] XR HIP RT 2 3V W PELVISon XR HIP RT 2 3V W PELVIS Normal [facility] Vital Signs Date Time Vital Sign Value Performing Clinician Facility 03-18-2023 13:37-0500 Body temperature 98.01 [degF] [place] [employer] Work Phone: [facility] 03-18-2023 13:37-0500 Diastolic blood pressure 64 mm[Hg] [place] [employer] [facility] [employer] Work Phone: [facility] 03-18-2023 13:37-0500 Heart rate 72 /min [facility] [employer] Work Phone: [facility] 03-18-2023 13:37-0500 SaO2% (BldA) [Mass fraction] 98 % Ni Petznick DO Work Phone: [facility] 03-18-2023 13:37-0500 Systolic blood pressure 118 mm[Hg] Ni Petznick DO Work Phone: [facility] 07-20-2022 13:35-0400 Body temperature 97.4 [degF] DO Devon Ball Work Phone: [facility] 07-20-2022 13:35-0400 Diastolic blood pressure 50 mm[Hg] DO Devon Ball Work Phone: [facility] 07-20-2022 13:35-0400 Heart rate 67 /min DO Devon Ball Work Phone: [facility] 07-20-2022 13:35-0400 Respiratory rate 20 /min DO Devon Ball Work Phone: [facility] 07-20-2022 13:35-0400 Systolic blood pressure 98 mm[Hg] DO Devon Ball Work Phone: [facility] 06-29-2022 14:46-0400 Body height 193.04 cm DO Devon Ball Work Phone: [facility] 02-26-2022 13:11-0500 Body temperature 96.6 [degF] Hina Peterson MD Work Phone: [facility] 02-26-2022 13:11-0500 Diastolic blood pressure 75 mm[Hg] Hina Peterson MD Work Phone: [facility] 02-26-2022 13:11-0500 Heart rate 75 /min Hina Peterson MD Work Phone: [facility] 02-26-2022 13:11-0500 Systolic blood pressure 88 mm[Hg] Hina Peterson MD Work Phone: [facility] 02-05-2022 08:29-0500 Body temperature 96.69 [degF] [facility] Work Phone: [facility] 02-05-2022 08:29-0500 Diastolic blood pressure 42 mm[Hg] [facility] Work Phone: [facility] 02-05-2022 08:29-0500 Heart rate 79 /min [facility] Work Phone: [facility] 02-05-2022 08:29-0500 SaO2% (BldA) [Mass fraction] 100 % [facility] Work Phone: [facility] 02-05-2022 08:29-0500 Systolic blood pressure 72 mm[Hg] [facility] Work Phone: [facility] 01-12-2022 11:00-0500 Diastolic blood pressure 54 mm[Hg] Alissa Major [employer] Work Phone: [facility] 01-12-2022 11:00-0500 Heart rate 88 /min Alissa Major [employer]IST[employer] Work Phone: [facility] 01-12-2022 11:00-0500 SaO2% (BldA) [Mass fraction] 93 % Alissa Major [employer] FI[employer] SPECIALIST.[employer] AMB[employer] Work Phone: [facility] 01-12-2022 11:00-0500 Systolic blood pressure 96 mm[Hg] Alissa Major [employer]IL FIRE SPECIALIST.[employer]NESS AMB[employer]AD[employer] Work Phone: [facility] 01-12-2022 10:12-0500 Body temperature 97.9 [degF] Alissa Major [employer]IL FIRE SPECIALIST.WE[employer]NESS AMB[employer]AD[employer] Work Phone: [facility] 01-12-2022 10:12-0500 Respiratory rate 18 /min Alissa Major [employer]IL FI[employer] SPECIALIST.[employer] AMB[employer] Work Phone: [facility] 11-17-2021 15:59-0400 Body height 193 cm No Reeder DO Work Phone: [facility] 11-17-2021 15:59-0400 Body weight 111.58 kg No Reeder DO Work Phone: [facility] 11-17-2021 15:59-0400 Diastolic blood pressure 59 mm[Hg] No Reeder DO Work Phone: [facility] 11-17-2021 15:59-0400 Heart rate 86 /min No Reeder DO Work Phone: [facility] 11-17-2021 15:59-0400 SaO2% (BldA) [Mass fraction] 97 % No Reeder DO Work Phone: [facility] 11-17-2021 15:59-0400 Systolic blood pressure 104 mm[Hg] No Reeder DO Work Phone: [facility] Encounters Encounter Date Encounter Type Care Provider Facility Start: 06-17-2023 End: 06-17-2023 ambulatory NI CABRERA Not Available Start: 05-19-2023 End: 05-19-2023 ambulatory [facility] Start: 04-11-2023 End: 04-11-2023 ambulatory Devon Moreira Other [employer] Other Start: 04-11-2023 Telephone encounter Devon NUNEZ [facility] Start: 03-18-2023 End: 03-18-2023 ambulatory NI CABRERA Not Available Start: 03-18-2023 End: 03-18-2023 Office outpatient visit 25 minutes Ni Cabrera DO Work Phone: [facility] [phone] Comment on above: 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 ([facility]/HCC) (Primary Dx); 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 ([facility]/HCC); Type 1 diabetes mellitus with nephropathy ([facility]/HCC); Type 1 diabetes mellitus with hypoglycemia and without coma ([facility]/HCC); 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 ([facility]/HCC) Start: 02-17-2023 End: 02-17-2023 ambulatory Devon Moreira Other [employer] Other Start: 02-17-2023 Telephone encounter Devon NUNEZ [facility] Start: 01-14-2023 End: 01-14-2023 ambulatory Devon Moreira Other [employer] Other Start: 01-14-2023 Sbsq nursing facil c are/day minor complj 15 min [facility] Start: 12-10-2022 End: 12-10-2022 ambulatory Devon Moreira Other [employer] Other Start: 12-10-2022 Sbsq nursing facil c are/day minor complj 15 min [facility] Start: 11-12-2022 End: 11-12-2022 ambulatory Devon Moreira Other [employer] Other Start: 11-12-2022 Sbsq nursing facil c are/day minor complj 15 min [facility] Start: 10-16-2022 Refill Asia Pike MD Work Phone: [facility] Comment on above: Med Change Request Start: 10-12-2022 End: 10-12-2022 ambulatory Devon Moreira Other [employer] Other Start: 10-12-2022 Telephone encounter Devon Moreira [facility] Start: 10-08-2022 End: 10-08-2022 ambulatory Devon Moreira Other [employer] Other Start: 10-08-2022 Sbsq nursing facil c are/day new problem 25 min [facility] Start: 09-22-2022 [facility] Start: 09-10-2022 End: 09-10-2022 ambulatory Devon Moreira Other [employer] Other Start: 09-10-2022 Sbsq nursing facil c are/day new problem 25 min [facility] Start: 09-09-2022 End: 09-09-2022 ambulatory [facility] Start: 08-06-2022 End: 08-06-2022 ambulatory Devon Moreira Other [employer] Other Start: 08-06-2022 Sbsq nursing facil c are/day new problem 25 min Devon Moreira [facility] Start: 07-22-2022 End: 07-22-2022 ambulatory Devon Moreira Other [employer] Other Start: 07-22-2022 Telephone encounter [facility] Start: 07-20-2022 End: 07-20-2022 ambulatory Sadia Aguilar Facility:[facility] Start: 07-20-2022 End: 07-20-2022 ambulatory DO Devon Moreira Work Phone: [facility] Work Phone: Start: 07-20-2022 End: 07-20-2022 Discharged Recurring DO Devon Lillie Work Phone: [facility] Work Phone: Start: 07-13-2022 End: 07-13-[address] DEVON MOREIRA Facility:[facility] Start: 07-10-2022 End: 07-10-[address] DEVON MOREIRA Facility:[facility] Start: 07-03-2022 End: 07-03-[address] DEVON MOREIRA Facility:[facility] Start: 06-26-2022 End: 06-26-[address] DEVON MOREIRA Facility:[facility] Start: 06-26-2022 End: 06-26-[address] DEVON MOREIRA Facility:[facility] Start: 06-25-2022 End: 06-25-2022 ambulatory Devon Moreira Other [employer] Other Start: 06-25-2022 Sbsq nursing facil c are/day minor complj 15 min Devon Moreira [facility] Start: 06-19-2022 End: 06-19-[address] DEVON MOREIRA Facility:[facility] Start: 06-15-2022 End: 07-15-2022 ambulatory SHAIKH Kate MURRAY Facility:[facility] Start: 06-12-2022 End: 06-12-[address] DOCTOR WALSH Facility:[facility] Start: 06-05-2022 Sbsq nursing facil c are/day new problem 25 min Devon Moreira [facility] Start: 06-05-2022 End: 06-05-[address] DEVON MOREIAR [facility] [employer] Other Start: 05-29-2022 End: 05-29-[address] DEVON MOREIRA Facility:[facility] Start: 05-22-2022 End: 05-22-[address] DEVON MOREIRA Facility:[facility] Start: 05-20-2022 End: 05-20-[address] DEVON MOREIRA Facility:[facility] Start: 05-18-2022 End: 06-12-2022 ambulatory SHAIKH Kate MURRAY Facility:[facility] Start: 05-15-2022 End: 05-15-[address] DEVON MOREIRA Facility:[facility] Start: 05-13-2022 End: 05-13-2022 ambulatory Van Olivarez APRN.WELLNESS AMBASSADOR Work Phone: [facility] [place] Comment on above: results Start: 05-13-2022 E-mail encounter fro m caregiver Van Olivarez APRN.WELLNESS AMBASSADOR Work Phone: [facility] Start: 05-08-2022 End: 05-08-[address] DEVON MOREIRA Facility:[facility]1 Start: 05-07-2022 End: 05-07-2022 ambulatory Devon Moreira Other [employer] Other Start: 05-07-2022 Sbsq nursing facil c [...] MOREIRA Facility:H1 Start: 02-27-2022 Refill Samira Serna [facility] Comment on above: Rx Refills Start: 02-26-2022 End: 02-26-2022 ambulatory DEVON MOREIRA Facility:[facility] Start: 02-26-2022 End: 02-26-2022 Patient encounter procedure [...] End: 02-06-2022 ambulatory ARTUR CHEN Facility:[facility] Start: 02-05-2022 End: 02-05-2022 Patient encounter procedure [facility] Work Phone: [facility]plant Center Comment on above: Kidney replaced by t ransplant (Primary Dx); 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; halfway current use of immunosuppressive drug Start: 01-26-2022 End: 01-26-[address] DEVON MOREIRA Facility:[facility]1 Start: 01-20-2022 Telephone encounter Van Olivarez APRN.WELLNESS AMBASSADOR Work Phone: Kidney Medicine [facility] Comment on above: Results Start: 01-19-2022 End: 01-19-[address] DEVON MOREIRA Facility:[facility]1 Start: 01-16-2022 ambulatory SHAIKH Kate MURRAY Facilit y:H1 Start: 01-12-2022 End: 01-12-2022 Subsequent hospital visit by physician Alissa Chavira APRN.WELLNESS AMBASSADOR Work Phone: Angio Comment on above: ILIANA (acute kidney in jury) ([facility]) [N17.9] Start: 12-30-2021 End: 12-30-2021 ambulatory Paresh Fonseca MD Work Phone: Infectious Disease Comment on above: MRSA bacteremia (Arabella munira Dx); Diabetic foot ulcer with osteomyelitis (HCC) Start: 12-30-2021 End: 12-30-2021 Telemedicine consultation with patient Paresh Fonseca MD Work Phone: [facility] Start: 12-29-2021 End: 12-29-2021 ambulatory [...] Start: 12-08-2021 Orders Only Artur Burger ry OIL FIRE SPECIALIST.WELLNESS AMBASSADOR Work Phone: Transplant Center Comment on above: [...] Patient encounter procedure [facility]cf Prov ider [facility] Department Start: 11-23-2021 End: 11-28-2021 [...] encounter Start: 11-14-2021 End: 11-15-2021 ambulatory [facility] Facility:[facility] Start: 10-24-2021 End: 11-15-2021 ambulatory SHAIKH Kate MURRAY Facility:[facility]1 Start: 10-22-2021 End: 10-23-2021 ambulatory ASHLEY GARIBAY Facility:[facility]1 Start: 10-06-2021 ambulatory Van cortes OIL FIRE SPECIALIST.WELLNESS AMBASSADOR Work Phone: [facility] Start: 09-30-2021 Refill Asia Pike MD Work Phone: [facility] Comment on above: Refill Request Start: 09-19-2021 End: 09-24-2021 Evaluation and management of inpatient DR PROSPER LEES Facility:H1 Start: 09-18-2021 End: 09-19-[address] DEVON MOREIRA Facility:[facility]1 Start: 07-11-2021 Refill Asia Pike MD Work Phone: [facility] Comment on above: Refill Request Start: 06-05-2021 Telephone encounter Van Olivarez OIL FIRE SPECIALIST.WELLNESS AMBASSADOR Work Phone: [facility] Comment on above: Results Start: 02-05-2021 End: 02-13-2021 ambulatory UNKNOWN PROVIDER Facility:[facility] Procedures Date Procedure Procedure Detail Performing Clinician Start: 05-19-2023 Follow-up visit Follow-up CAITY IBRAHIM Start: 03-18-2023 Hemoglobin glycosyla rk a1c Ni Cabrera DO Work Phone: Start: 02-05-2022 Creatinine other source Asia Pike MD Work Phone: Start: 02-05-2022 Urnls dip stick/tabl et rgnt auto w/o microscopy Asia Pike MD Work Phone: Start: 01-12-2022 Prothrombin time Alissa Chavira OIL FIRE SPECIALIST.WELLNESS AMBASSADOR Work Phone: Start: 12-01-2021 [facility] CHECK Ccf Provider Start: 11-29-2021 Microscopic examinat ion of blood, culture DR PROSPER LEES Comment on above: Performed By: #### B [id number] ####[facility] [id number] [place], [place] [address]YzSkylar Leal Start: 11-27-2021 Insertion of Infusio n [...] renal transplant KIDNEY TRANSPLANT STATUS Van Sher OIL FIRE SPECIALIST.WELLNESS AMBASSADOR Work Phone: History of renal transplant Kidney replaced by transplant Artur Chen OIL FIRE SPECIALIST.WELLNESS AMBASSADOR Work Phone: History of renal transplant Kidney replaced by transplant [facility] Work Phone: History of renal transplant Devon Moreira Other History of renal transplant Kidney replaced by transplant Asia Pike MD Work Phone: History of renal transplant Devon Moreira Other Plan of Treatment Date Care Activity Detail Author Start: 06-17-2023 End: 06-17-2023 Patient encounter procedure 06/17/2023 2:15 PM EDT Office Visit [facility] [address] [place] [address] Ni Cabrera DO [address] [place] [address] [facility] [address] Start: 06-16-2023 Hemoglobin A1c measurement Diabetes: Hemoglobin A1C [facility] Start: 02-26-2023 BP CONTROLLED (<130/80) BP CONTROLLE D (<130/80) [facility] Start: 02-05-2023 BP CONTROLLED (<130/80) BP CONTROLLE D (<130/80) [facility] Start: 01-12-2023 BP CONTROLLED (<130/80) BP CONTROLLE D (<130/80) [facility] Start: 11-17-2022 BP CONTROLLED (<130/80) BP CONTROLLE D (<130/80) [facility] Start: 10-16-2022 Influenza vaccination [facility] Start: 05-15-2022 Medicare Annual Wellness (AWV) Medicare Annual Wellness (AWV) [facility] Start: 04-08-2022 BP CONTROLLED (<130/80) BP CONTROLLE D (<130/80) [facility] Start: 02-15-2022 ADVANCE DIRECTIVE DISCUSSION ADVANCE DIRECTIVE DISCUSSION [facility] Start: 02-15-2022 DEPRESSION ASSESSMENT DEPRESSION ASS ESSMENT [facility] Start: 02-05-2022 COVID-19 VACCINE (5 - Yung risk series) COVID-19 VACCINE (5 - Yung risk series) [facility] Start: 11-27-2021 COVID-19 VACCINE (4 - Booster for Ynug series) COVID-19 VACCINE (4 - Booster for Yung series) [facility] Start: 11-04-2021 Hemoglobin A1c/Hemoglobin.total in Blood HBA1C [facility] Start: 10-16-2021 Influenza vaccination [facility] Start: 03-26-2021 COVID-19 VACCINE (3 - Yung risk 3-dose series) COVID-19 VACCINE (3 - Yung risk 3-dose series) [facility] Start: 03-26-2021 COVID-19 VACCINE (3 - Yung risk series) COVID-19 VACCINE (3 - Yung risk series) [facility] Start: 02-15-2021 ADVANCE DIRECTIVE DISCUSSION ADVANCE DIRECTIVE DISCUSSION [facility] Start: 02-15-2021 DEPRESSION ASSESSMENT DEPRESSION ASS ESSMENT [facility] Start: 01-05-2016 Hepatitis B screening URINE AL BUMIN:CREATININE RATIO [facility] Start: 07-31-2015 Pneumococcal Vaccine : 65+ Years (3 - PCV) Pneumococcal Vaccine: 65+ Years (3 - PCV) [facility] Start: 04-06-2015 Hemoglobin A1c/Hemoglobin.total in Blood HBA1C [facility] Start: 11-22-2010 Hepatitis B surface antibody level LDL CHOLESTEROL [facility] Start: 2009 ADULT PREVNAR-13 ADULT PREVNAR-13 Cl [facility] Start: 2009 PNEUMOVAX AGE 65 AND OVER WITH 5YR LOOKBACK (#1) PNEUMOVAX AGE 65 AND OVER WITH 5YR LOOKBACK (#1) [facility] Start: 1994 SHINGRIX VACCINE (1 of 2) SHINGRIX VACCINE (1 of 2) [facility] Start: 10-18-1963 HEPATITIS A (1 of 2 - Risk 2-dose series) HEPATITIS A (1 of 2 - Risk 2-dose series) [facility] Start: 10-18-1963 Hepatitis A Vaccine (1 of 2 - Risk 2-dose series) Hepatitis A Vaccine (1 of 2 - Risk 2-dose series) [facility] Start: 10-18-1963 SHINGRIX VACCINE (1 of 2) SHINGRIX VACCINE (1 of 2) [facility] Start: 10-18-1963 Urine microalbumin profile [facility] Start: 1962 ANNUAL PCP TEAM IT ENGINEER MATTHEW DISEASE VISIT ANNUAL PCP TEAM CHRONIC DISEASE VISIT [facility] Start: 1956 Adult depression screening assessment DEPRESSION SCREENING [facility] Start: 1954 3 comp foot exam completed DIABETIC FOOT EXAM [facility] Start: 1954 Glaucoma screening Diabetes: R etinopathy Screening [facility] Start: 1954 Hepatitis C antibody , confirmatory test DILATED RETINAL EXAM [facility] Start: 1950 Pneumococcal Vaccine : 65+ (1 - PCV) Pneumococcal Vaccine: 65+ (1 - PCV) [facility] Start: 1950 PNEUMOCOCCAL: 65+ (1 - PCV) PNEUMOCOCCAL: 65+ (1 - PCV) [facility] Start: 1945 HEPATITIS A (1 of 2 - Risk 2-dose series) HEPATITIS A (1 of 2 - Risk 2-dose series) [facility] URINALYSIS, REFLEX MICROSCOPIC URINALYSIS, REFLEX MICROSCOPIC Lab Routine Screening for genitourinary condition Ordered: 10/06/2021 [facility] Work Phone: Comment on above: Ordered: 10/06/2021 URINALYSIS, REFLEX MICROSCOPIC URINALYSIS, REFLEX MICROSCOPIC Lab Routine Screening for genitourinary condition Ordered: 04/02/2022 [facility] Work Phone: Comment on above: Ordered: 04/02/2022 End: 11-17-2022 US LEG ARTERIAL PERIPH [facility] US LEG ARTERIAL PERIPH [facility] Vascular Lab Routine PAD (peripheral artery disease) (HCC) Nonhealing ulcer of heel (HCC) 1 Occurrences starting 11/17/2021 until 11/17/2022 [facility] Work Phone: Comment on above: 1 Occurrences starti ng 11/17/2021 until 11/17/2022 End: 11-17-2022 US LEG VEIN DVT [facility] US LEG VEIN DVT [facility] Vascular Lab Routine Acute deep vein thrombosis (DVT) of proximal end of right lower extremity (HCC) 1 Occurrences starting 11/17/2021 until 11/17/2022 [facility] Work Phone: Comment on above: 1 Occurrences starti ng 11/17/2021 until 11/17/2022 [facility] & VAS DANIEL [facility] CT & VAS [facility] Immunizations Immunization Date Immunization Notes Care Provider Fa [facility] 12-11-2021 COVID-19 booster vaccine, age 12+ yr, bivalent (PFIZER-BIONTECH) Paresh Fonseca MD Work Phone: [facility] 12-11-2021 influenza, high-dose , quadrivalent vaccine (FLUZONE HIGH DOSE QUADRIVALENT) Paresh Fonseca MD Work Phone: [facility] 12-11-2021 influenza virus vaccine, unspecified formulation [facility] 10-24-2021 influenza, high dose seasonal, preservative-free Ni Petznick DO Work Phone: [facility] 01-19-2019 influenza, high dose seasonal, preservative-free Ni Petznick DO Work Phone: [facility] 11-25-2017 Seasonal trivalent influenza vaccine, adjuvanted, preservative free Ni Petznick DO Work Phone: [facility] 11-05-2016 influenza, high dose seasonal, preservative-free Ni Petznick DO Work Phone: [facility] 07-30-2014 pneumococcal polysaccharide vaccine, 23 valent Ni Petznick DO Work Phone: [facility] 03-09-2011 influenza virus vaccine, unspecified formulation Van Olivarez OIL FIRE SPECIALIST.WELLNESS AMBASSADOR Work Phone: [facility] 12-17-2007 influenza virus vaccine, unspecified formulation Van Olivarez OIL FIRE SPECIALIST.WELLNESS AMBASSADOR Work Phone: [facility] Work Phone: 02-11-2006 influenza virus vaccine, unspecified formulation Van Olivarez OIL FIRE SPECIALIST.WELLNESS AMBASSADOR Work Phone: [facility] Work Phone: 12-07-2003 influenza virus vaccine, unspecified formulation Van Olivarez OIL FIRE SPECIALIST.WELLNESS AMBASSADOR Work Phone: [facility] Work Phone: 12-07-2003 pneumococcal polysaccharide vaccine, 23 valent Van Olivarez OIL FIRE SPECIALIST.[facility] Work Phone: [facility] Work Phone: NEGATED: Highlighted row has not occurred!12-10-2021 COVID-19 booster vaccine, age 12+ yr, bivalent (PFIZER-BIONTMenuSpring) Paresh Fonseca MD Work Phone: [facility] NEGATED: Highlighted row has not occurred!12-10-2021 influenza, high-dose, quadrivalent vaccine (FLUZONE HIGH DOSE QUADRIVALENT) Paresh Fonseca MD Work Phone: [facility] Payers Date Payer Category Payer Medicare MEDICARE MEDICAR E A AND B [id number] 2009-Present [phone] [address] [address] [place] [address] Medicare [id number] 2009 Medicare [id number] [id number] .[id number] 2009 Unknown [employer] [place] [employer] [place] MEDICARE SUPPLEMENT [id number] 2009-Present [phone] [address] [facility] [place] [address] Indemnity [id number] [id number] .257736.315 2009 Unknown [id number]. 1.13.159.2.7.3 .083038.315 2009 Unknown [id number] 2.16.8 40.1.047678.19 2009 Unknown [id number] 1959 Medicare [id number] 1959 Self-pay 1944 Unknown [id number] 2.16.840.1.960643.3.579.2.732 1944 Unknown [id number] 2.16.840.1.929461.3.579.2.593 1944 Unknown [id number] 2.16.840.1.796584.3.579.2.593 1944 Unknown [id number] 2.16.840.1.031883.3.579.2.593 1944 Unknown [id number] 2.16.840.1.197295.3.579.2.593 1944 Unknown [id number] 2.16.840.1.012616.3.579.2.593 1944 Unknown [id number] 2.16.840.1.561938.3.579.2.593 1944 Unknown [id number] 2.16.840.1.799294.3.579.2.593 1944 Unknown [id number] 2.16.840.1.506405.3.579.2.593 1944 Unknown [id number] 2.16.840.1.744068.3.579.2.593 1944 Unknown [id number] 2.16.840.1.691406.3.579.2.593 1944 Unknown [id number] 2.16.840.1.079706.3.579.2.593 1944 Unknown [id number] 2.16.840.1.218824.3.579.2.593 1944 Unknown [id number] 2.16.840.1.566578.3.579.2.593 1944 Unknown [id number] 2.16.840.1.364347.3.579.2.593 1944 Unknown [id number] 2.16.840.1.497975.3.579.2.593 1944 Unknown [id number] 2.16.840.1.626262.3.579.2.593 1944 Unknown [id number] 2.16.840.1.659436.3.579.2.593 1944 Unknown [id number] 2.16.840.1.303639.3.579.2.593 1944 Unknown [id number] 2.16.840.1.816248.3.579.2.593 1944 Unknown [id number] 2.16.840.1.611741.3.579.2.593 1944 Unknown [id number] 2.16.840.1.972364.3.579.2.593 1944 Unknown [id number] 2.16.840.1.499597.3.579.2.593 1944 Unknown [id number] 2.16.840.1.100811.3.579.2.593 1944 Unknown [id number] 2.16.840.1.124150.3.579.2.593 1944 Unknown [id number] 2.16.840.1.758620.3.579.2.593 1944 Unknown [id number] 2.16.840.1.432621.3.579.2.593 1944 Unknown [id number] 2.16.840.1.273563.3.579.2.593 1944 Unknown [id number] 2.16.840.1.070081.3.579.2.593 1944 Unknown [id number] 2.16.840.1.522894.3.579.2.593 1944 Unknown [id number] 2.16.840.1.170803.3.579.2.593 1944 Unknown [id number] 2.16.840.1.752394.3.579.2.593 1944 Unknown [id number] 2.16.840.1.368071.3.579.2.593 1944 Unknown [id number] 2.16.840.1.262579.3.579.2.593 1944 Unknown [id number] 2.16.840.1.375590.3.579.2.593 1944 Unknown [id number] 2.16.840.1.759638.3.579.2.593 1944 Unknown [id number] 2.16.840.1.031337.3.579.2.593 1944 Unknown [id number] 2.16.840.1.478655.3.579.2.593 1944 Unknown [id number] 2.16.840.1.886370.3.579.2.593 1944 Unknown [id number] 2.16.840.1.889099.3.579.2.593 1944 Unknown [id number] 2.16.840.1.296757.3.579.2.593 1944 Unknown [id number] 2.16.840.1.352613.3.579.2.593 1944 Unknown [id number] 2.16.840.1.401436.3.579.2.593 1944 Unknown [id number] 2.16.840.1.456878.3.579.2.593 1944 Unknown [id number] 2.16.840.1.830974.3.579.2.593 1944 Unknown [id number] 2.16.840.1.175274.3.579.2.593 1944 Unknown [id number] 2.16.840.1.469039.3.579.2.593 1944 Unknown [id number] 2.16.840.1.354263.3.579.2.125 9 1944 Unknown [id number] 2.16.840.1.866890.3.579.2.125 9 Medicare Medicare Outpatient [id number] 2T [id number] Unknown [id number] 2.16.840.1.976715.3.579.2.593 Unknown [id number] 2.16.840.1.855727.3.579.2.593 Unknown [id number] 2.16.840.1.110744.3.579.2.531 Social History Date Type Detail Facility Start: 03-09-2011 End: 07-07-2022 Tobacco smoking status AKIS Ex-smoker [facility] Work Phone: End: 02-15-1975 History of tobacco use Current smoker [facility] Work Phone: End: 02-15-1975 History of tobacco use Cigarette Smoker [facility] Work Phone: Start: 04-08-2021 End: 02-26-2022 Alcohol intake Current drinker of alcohol (finding) [facility] Start: 1945 Sex Assigned At Not on file [facility] Start: 03-09-2011 End: 10-20-2022 Cigarettes smoked current (pack per day) - Reported 1 [facility] Work Phone: Start: 03-09-2011 End: 02-26-2022 Tobacco use and exposure Smokeless tobacco non-user [facility] Start: 09-25-2021 History SDOH Financial 5 [facility] Start: 09-25-2021 History SDOH Food Worry 1 [facility] Start: 09-25-2021 History SDOH Transpo rt Med 2 [facility] Start: 09-14-2021 End: 01-12-2022 Exposure to SARS-CoV-2 (event) Not sure [facility] Start: 02-26-2022 End: 10-20-2022 Sex Assigned At [facility] Work Phone: Start: 1945 Sex Assigned At Male F [facility] How hard is it for y ou to pay for the very basics like food, housing, medical care, and heating Not hard at all [facility] Work Phone: (I/We) worried shiloh er (my/our) food would run out before (I/we) got money to buy more. Never true [facility] Work Phone: In the past 12 month s, was there a time when you were not able to pay the mortgage or rent on time? No [facility] Work Phone: Start: 03-18-2023 Alcohol intake Ex-drinker (finding) [facility] How often to you hav e a drink containing alcohol? Never [facility] Medical Equipment Procedure Code Equipment Code Equipment Original Text Equipment Identifier Dates Tray Powerline S urecuff 5fr Polyurethane Catheter 1 Lumen Microintroducer - [id number] Start: 12-06-2021 Clinical Notes 06-05-2021 to [...] at about 50-60 systolic. patient with friend/ inventory associate and driver from facility, we will take patient to the ER for evaluation ---- --------- Per dr. Alvarez 03/2021 Mr. Almonte, Carey , presents to clinic for routine follow [...] of the right coronary artery with robust iroo-bn-tjmeu collaterals. 5. Normal global left ventricular systolic [...] Follow up with Dr. Galvez in the [facility] in the next 2 weeks; he may follow up with Dr. Orosco as needed for interventional issues. 5. Follow up wi (more content not included)... [facility] 04-11-2023 Evaluation note Encounter Date Diagnosis [...] (ICD-10 - Z89.619) WC dependent. 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 He is being transported by a inventory associate and driver. 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 CONTINUOUS BLOOD GLUC SENSOR (RevolucionadolabsSTYLE SHAAN 14 DAY SENSOR) MISC Inject 1 [...] mouth in the morning. documented [facility] [id number] Evaluation note* Encounter Date Diagnosis Assessment Notes [...] are maintaining regular scheduled appts with their director of research. No bleeding complications Dec, Hyperlipidemia LDL goal [...] fluid balance and to avoid dehydration. Dec, halfway (current) use of insulin (ICD-10 - Z79.4) [facility] Other 10-26-2023 Evaluation note* Encounter Date Diagnosis Assessment Notes Treatment Notes Treatment Clinical Notes Nov, Longstanding persistent atrial fibrillation (ICD-10 - I48.11) This patient is in NSR or rate controlled. This patient is anticoagulated to prevent thromboembolic events. They are maintaining regular scheduled appts with their director of research. No bleeding complications Nov, Hyperlipidemia LDL goal [...] Z94.0) Monthly labs to transplant clinic Nov, halfway (current) use of insulin (ICD-10 - Z79.4) [facility] Other 09-28-2023 Evaluation note* Encounter Date Diagnosis [...] are maintaining regular scheduled appts with their director of research. No bleeding complications Oct, Type 1 diabetes [...] - Z94.0) Continue routine surveillance labs. Oct, halfway (current) use of insulin (ICD-10 - Z79.4) [facility] Other 09-01-2023 Miscellaneous Notes* Telephone Encounter - Mary Martinez - 10/16/2022 1:08 PM EDT Pharmacy comment: REQUEST FOR 90 DAYS PRESCRIPTION. DX Code Needed. 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 No bleeding complications Sep, Type 1 diabetes [...] risk for cerebrovascular and cardiovascular disease. 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 Please review and advise. Ariadna Mcdowell, documented in this encounterOhio[facility]07-27-20[facility] Evaluation note* Encounter Date Diagnosis Assessment Notes Treatment Notes Treatment Clinical Notes Aug, Longstanding persistent atrial fibrillation (ICD-10 - I48.11) This patient is in NSR or rate controlled. This patient is anticoagulated to prevent thromboembolic events. They are maintaining regular scheduled appts with their director of research. No s/s bleeding Aug, Type 1 diabetes [...] - Z94.0) Continue close surveillance w/ labs [facility] Other 07-26-2023 NoteUT Electrophysiology Consult Note Reason [...] at about 50-60 systolic. patient with friend/ inventory associate and driver from facility, we will take patient to the ER for evaluation --------- Per dr. Alvarez 03/2021 Mr. Almonte, Carey , presents to clinic for routine follow [...] of the right coronary artery with robust rfzq-lf-wzico collaterals. 5. Normal global left ventricular systolic [...] with Dr. Galvez in the [facility] in the next 2 weeks; he may follow up with Dr. Orosco as needed for interventional issues. 5. Follow up with Dr. Devon Moreira as scheduled. PMH: Past Medical History: Diagnosis Date Abnormal ECG Arrhythmia Atrial fibrillation (CMS/HCC) Chronic kidney disease Coronary artery disease Diabetes mellitus (CMS/HCC) (more content not included)...[facility]07-26-2023 NotePatient here for 1.5 year follow up and device check. Lightheaded in the office today, as BP is very low. He denies chest pain, SOB, palpitations, and bleeding on warfarin. Had routine labs last week. Review of Systems Musculoskeletal: Positive for arthritis, joint pain and myalgias. Neurological: Positive for light-headedness. All other systems reviewed and are negative.[facility] 08-06-2022 Evaluation note* Encounter Date Diagnosis [...] are maintaining regular scheduled appts with their director of research. No bleeding complications Jul, Type 1 diabetes [...] Monthly labs, ongoing surveillance from transplant clinic [employer] Other 05-15-2023 Progress note Author Sadia Aguilar [facility] June 29, 2022 2:47pm Note Date/Time June 29, 2022 2:46p m [facility] [address] [place] [address] Wound Center Provider Note Signed Patient: Alex Almonte MR#: [id number] : 1945 Acct:[id number] Age/Sex: 76 / M Copies to: DO Sadia Whyte, OIL FIRE SPECIALIST~ HPI Date of Visit Date of Visit: Date of Service: 06/29/2022 Time of Service: 14:45 Narrative HPI: 12/30/21 Alex is a 76 year old male presenting to [facility] wound care for aninitial visit for eval and treatment of a sacral/coccyx area pressure ulcer. He resides at [facility]. There is an CAUSTIC STRENGTH INSPECTOR present for the visit. Medicalhoney gel will [...] from initial visit here Mode of Arrival/ Rural Health Consultant: Facility vehicle Assistive Device Used Today: Wheelchair and Indra Lives with:: Care/Nursing Facility Appetite Description: Within Normal Limits Who helps w/ dressing change?: Nursing Facility Why Do You Need Help?: Can't Reach Ulcer, Limited mobility and Taxing effort to leave home Smoking Status: Former smoker [facility] Medical History (Updated 03/03/22 @ 14:41 by [...] Ulcer/Injury Staging: Unstageable Bed Appearance: Beefy Red, Tarrants, Yellow and Rolled Edges Percent of Wound [...] <Electronically signed by DAVID Aguilar> 06/29/22 [address] [facility] Work Phone: 1(529) 903-612905-11-2023 Evaluation note* Encounter Date Diagnosis Assessment Notes [...] are maintaining regular scheduled appts with their director of research. No bleeding complications June, Hyperlipidemia LDL goal <100 (ICD-10 - E78.5) Instructed on diet and exercise with continued statin therapy.Discussed the beneficial effects of lowering cholesterol in reducing the risk for cerebrovascular and cardiovascular disease. June, 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 (current) use of insulin (ICD-10 - Z79.4) June, Kidney transplant status (ICD-10 - Z94.0) No s/s rejection [employer] Other 04-24-2023 Progress note Author Sadia Aguilar [facility] June 08, 2022 2:10pm Note Date/Time June 08, 2022 2:1 0pm [facility] [address] [place] [address] Wound Center Provider Note Signed Patient: Alex Almonte MR#: [id number] : 1945 Acct:[id number] Age/Sex: 76 / M Copies to: DO Sadia Whyte APRN~ HPI Date of Visit Date of Visit: Date of Service: 06/08/2022 Time of Service: 14:07 Narrative HPI: 12/30/21 Alex is a 76 year old male presenting to [facility] wound care for aninitial visit for eval and treatment of a sacral/coccyx area pressure ulcer. He resides at [facility]. There is an CAUSTIC STRENGTH INSPECTOR present for the visit. Medicalhoney gel will [...] from initial visit here Mode of Arrival/ Rural Health Consultant: Facility vehicle Assistive Device Used Today: Wheelchair and Indra Lives with:: Care/Nursing Facility Appetite Description: Within Normal Limits Who helps w/ dressing change?: Nursing Facility Why Do You Need Help?: Can't Reach Ulcer, Limited mobility and Taxing effort to leave home Smoking Status: Former smoker [facility] Medical History (Updated 03/03/22 @ 14:41 by [...] Ulcer/Injury Staging: Unstageable Bed Appearance: Beefy Red, Tarrants, Yellow and Rolled Edges Percent of Wound [...] <Electronically signed by DAVID Aguilar> 06/08/22 [address] [facility] Work Phone: 1(700) 593-352904-21-2023 Evaluation note* Encounter Date Diagnosis Assessment Notes [...] are maintaining regular scheduled appts with their director of research. May, 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 (current) use of insulin (ICD-10 - Z79.4) May, Kidney transplant status (ICD-10 - Z94.0) routine labs per clinic. 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 No open ulcerations present Pain controlled [employer] Other 03-27-2023 Progress note Author Sadia Aguilar [facility] May 11, 2022 1:41pm Note Date/Time May 11, 2022 1:4 0pm [facility] [address] [place] [address] Wound Center Provider Note Signed Patient: Alex Almonte MR#: [id number] : 1945 Acct:[id number] Age/Sex: 76 / M Copies to: DO Sadia Whyte, OIL FIRE SPECIALIST~ HPI Date of Visit Date of Visit: Date of Service: 05/11/2022 Time of Service: 13:38 Narrative HPI: 12/30/21 Alex is a 76 year old male presenting to [facility] wound care for aninitial visit for eval and treatment of a sacral/coccyx area pressure ulcer. He resides at [facility]. There is an CAUSTIC STRENGTH INSPECTOR present for the visit. Medicalhoney gel will [...] from initial visit here Mode of Arrival/ Rural Health Consultant: Facility vehicle Assistive Device Used Today: Wheelchair and Indra Lives with:: Care/Nursing Facility Appetite Description: Within Normal Limits Who helps w/ dressing change?: Nursing Facility Why Do You Need Help?: Can't Reach Ulcer, Limited mobility and Taxing effort to leave home Smoking Status: Former smoker [facility] Medical History (Updated 03/03/22 @ 14:41 by [...] Ulcer/Injury Staging: Unstageable Bed Appearance: Beefy Red, Tarrants and Yellow Percent of Wound Bed Granulated/Red: [...] <Electronically signed by DAVID Aguilar> 05/11/22 [address] [facility] Work Phone: 1([phone]) 964-686203-23-2023 Evaluation note* Encounter Date Diagnosis Assessment Notes [...] are maintaining regular scheduled appts with their director of research. Apr, Type 1 diabetes mellitus with hyperglycemia [...] are reviewed at the office visit Apr, 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 (current) use of insulin (ICD-10 - Z79.4) Apr, Kidney transplant status (ICD-10 - Z94.0) Serial labs by clinic tatiana Oshea Bohannon [employer] Other 03-10-2023 NoteHNO ID: [id number] Author: Keyur Brown MD Service: ? Author Type: Physician Type: Progress Notes Filed: 04/24/2022 10:32 AM Note Text: Encounter opened in error, patient not seen.[facility]02-28-2023 Progress note Author Sadia Aguilar [facility] April 14, 2022 2:19pm Note Date/Time April 14, 2022 2:18pm [facility] [address] [place] [address] Wound Center Provider Note Signed Patient: Alex Almonte MR#: [id number] : 1945 Acct:[id number] Age/Sex: 76 / M Copies to: DO Sadia Whyte APRN~ HPI Date of Visit Date of Visit: Date of Service: 04/14/2022 Time of Service: 14:18 Narrative HPI: 12/30/21 Alex is a 76 year old male presenting to [facility] wound care for aninitial visit for eval and treatment of a sacral/coccyx area pressure ulcer. He resides at [facility]. There is an CAUSTIC STRENGTH INSPECTOR present for the visit. Medicalhoney gel will [...] from initial visit here Mode of Arrival/ Rural Health Consultant: Facility vehicle Assistive Device Used Today: Wheelchair and Indra Lives with:: Care/Nursing Facility Appetite Description: Within Normal Limits Who helps w/ dressing change?: Nursing Facility Why Do You Need Help?: Can't Reach Ulcer, Limited mobility and Taxing effort to leave home Smoking Status: Former smoker [facility] Medical History (Updated 03/03/22 @ 14:41 by [...] Ulcer/Injury Staging: Unstageable Bed Appearance: Beefy Red, Tarrants and Yellow Percent of Wound Bed Granulated/Red: [...] By: <Electronically signed by DAVID Aguilar> 04/14/221418 [facility] Work Phone: 1(474) 757-607902-16-2023 NotePatient Outreach (KIMBERLY) ALEX ALMONTE ([id number]) 1945 M TRN Date Time Provider Department 04/02/22 VAN OLIVAREZ During your visit today, we recorded the following information about you: Allergies As of Date: 04/02/2022 Noted Allergy Reaction PYRIDOSTIGMINE BROMIDE 08/04/2021 8 - GI Upset Date Reviewed: 02/26/2022 Reviewed by: Braden Abel MA - Fully Assessed Visit Diagnosis:Screening for genitourinary condition [Z13.89] Order(s):URINALYSIS, REFLEX MICROSCOPIC [GFI0567] Order #: [id number] Prescriptions as of 04/06/2022 - tacrolimus IR [...] by mouth daily with lunch. 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/2002 DIABETES UNCOMPL ADULT-UNCONTRLLED [ILU0872] 02/24/2002 KIDNEY TRANSPLANT STATUS [Z94.0] 09/07/2003 PROPHYLACTIC IMMUNOTHERAPY [Z29.8] 07/30/2006 GROUP HOME STEROIDS [PLT3213] 07/30/2006 VITAMIN D DEFICIENCY NOS [E55.9] 09/07/2008 [...] diabetes mellitus with diabetic peripher*11/29/2021 Atherosclerosis of eastern shoshone artery of extremity w*11/29/2021 Malnutrition of moderate degree (HCC) [E44.0] 12/01/2021 Dermatitis associated with moisture [L30.8] 12/04/2021 Encounter Status:Closed by LUISA HOBBSUSER on 04/06/22[facility] 03-30-2022 Miscellaneous Notes* Telephone Encounter - Van Olivarez APRN.CNP - 03/30/2022 12:16 PM EST The following approved medication requests have been transmitted electronically. Requested Prescriptions Signed Prescriptions Disp Refills tacrolimus IR (PROGRAF) 1 mg capsule 180 capsule 4 Sig: TAKE 2 CAPSULES BY MOUTH DAILY AT 6AM*Z94.0* Authorizing Provider: VAN OLIVAREZ APRN.CNP * Telephone Encounter - Ktaina Duque - 03/23/2022 11:30 AM EST Patient's request for medication is as follows: Requested Prescriptions Pending Prescriptions Disp Refills tacrolimus IR (PROGRAF) 1 mg capsule [Pharmacy Med Name: TACROLIMUS 1 MG CAPSULE (IR)] 180 capsule 4 Sig: TAKE 2 CAPSULES BY MOUTH DAILY AT 6AM*Z94.0* Please approve the above prescription(s) to electronically send to pharmacy. Katnia Duque documented in this encounterOhiohealth [facility]02-07-2023 Progress note Author Sadia Aguilar [facility] March 24, 2022 3:00pm Note Date/Time March 24, 2022 2 :59pm [facility] [address] [place] [address] Wound Center Provider Note Signed Patient: Alex Almonte MR#: [id number] : 1945 Acct:[id number] Age/Sex: 76 / M Copies to: Devon Moreira,DO Sadia Aguilar, OIL FIRE SPECIALIST~ HPI Date of Visit Date of Visit: Date of Service: 03/24/2022 Time of Service: 14:58 Narrative HPI: 12/30/21 Alex is a 76 year old male presenting to [facility] wound care for aninitial visit for eval and treatment of a sacral/coccyx area pressure ulcer. He resides at [facility]. There is an CAUSTIC STRENGTH INSPECTOR present for the visit. Medicalhoney gel will [...] from initial visit here Mode of Arrival/ Rural Health Consultant: Facility vehicle Assistive Device Used Today: Wheelchair and Indra Lives with:: Care/Nursing Facility Appetite Description: Within Normal Limits Who helps w/ dressing change?: Nursing Facility Why Do You Need Help?: Can't Reach Ulcer, Limited mobility and Taxing effort to leave home Smoking Status: Former smoker [facility] Medical History (Updated 03/03/22 @ 14:41 by [...] Ulcer/Injury Staging: Unstageable Bed Appearance: Beefy Red, Tarrants and Yellow Percent of Wound Bed Granulated/Red: [...] <Electronically signed by DAVID Aguilar> 03/24/22 [address] [facility] Work Phone: 1(793) 151-494901-17-2023 Progress note Author Sadia Aguilar [facility] March 03, 2022 2:41pm Note Date/Time March 03, 2022 2 :41pm [facility] [address] [place] [address] Wound Center Provider Note Signed Patient: Alex Almonte MR#: [id number] : 1945 Acct:[id number] Age/Sex: 76 / M Copies to: DO Sadia Whyte APRN~ HPI Date of Visit Date of Visit: Date of Service: 03/03/2022 Time of Service: 14:38 Narrative HPI: 12/30/21 Alex is a 76 year old male presenting to [facility] wound care for aninitial visit for eval and treatment of a sacral/coccyx area pressure ulcer. He resides at [facility]. There is an CAUSTIC STRENGTH INSPECTOR present for the visit. Medicalhoney gel will [...] from initial visit here Mode of Arrival/ Rural Health Consultant: Facility vehicle Assistive Device Used Today: Wheelchair and Indra Lives with:: Care/Nursing Facility Appetite Description: Within Normal Limits Who helps w/ dressing change?: Nursing Facility Why Do You Need Help?: Can't Reach Ulcer, Limited mobility and Taxing effort to leave home Smoking Status: Former smoker [facility] Medical History (Updated 03/03/22 @ 14:41 by [...] Ulcer Pressure Ulcer/Injury Staging: Unstageable Bed Appearance: Tarrants and Yellow Percent of Wound Bed Granulated/Red: 90 Percent of Devitalized: 10 Length (cm): 2.2 Width (cm): 1.8 Depth (cm): 1.9 CM Sq: 3.960 Surrounding Tissue Appearance: Tarrants, Hyperpigmented and Satellite lesions Surrounding Tissue Temp: [...] <Electronically signed by DAVID Aguilar> 03/03/22 [address] [facility] Work Phone: 1(286) 311-208101-13-2023 Miscellaneous Notes* Telephone Encounter - RAUL Davidson - 02/27/2022 10:24 AM EST Patient phones requesting refills as follows: Per pts sister takes 1 mg in AM and 1 mg in PM Requested Prescriptions Pending Prescriptions Disp Refills tacrolimus IR (PROGRAF) 1 mg capsule Sig: Take 2 capsules by mouth DAILY (6 AM). Please review and advise. RAUL Davidson documented in this encounterOhiohealth Southeastern Medical Center01-12-2023 NoteHNO ID: [id number] Author: Hina Peterson MD Service: ? 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 Patient on mycophenolate mofetil , cellcept and prednisone Mixed hyperlipidemia due to type 2 diabetes mellitus ([facility]) 11/29/2021 Osteomyelitis ([facility]) 11/29/2021 Paroxysmal atrial fibrillation ([facility]) Renal transplant, status post SA node dysfunction ([facility]) s/p pacemaker Type 2 diabetes mellitus with diabetic neuropathy, with long-term current use of insulin ([facility]) 02/24/2002 PAST SURGICAL HISTORY Procedure [...] by mouth daily with lunch. Magic Cup [place] with lunch aspirin, enteric coated (ASPIRIN, ENTERIC COATED) 81 mg EC tablet Take 1 tablet by mouth once daily. predniSONE (DELTASONE) 5 mg tablet TAKE 1 TABLET BY MOUTH EVERY DAY oxyCODONE IR (ROXICODONE) 5 mg immediate release tablet 1-2 tablets by ORAL/FEEDING TUBE route every 3 hours as needed. Food Supplement, Lactose-Free (ENSURE MAX (more content not included)... [facility]01-12-2023 History of Present illness Narrative* Hina Peterson MD - 02/26/2022 4:25 PM EST Images from the original note were not included. [facility] Thor[facility] [place] DEPARTMENT OF VASCULAR SURGERY OUTPATIENT VISIT DATE [...] maxwell and sutures were removed at the [facility] facility. He comes here with a lateral wound eschar. He denies any fevers, chills, or any drainage. He is on anticoagulation. PAST MEDICAL HISTORY Diagnosis Date Atherosclerosis of eastern [place] artery of extremity with ulceration ([facility]) 11/29/2021 BPH (benign prostatic hyperplasia) CAD (coronary artery disease) 2017 s/p PCI 2016 and CABG 2019 Diabetes mellitus ([facility]) Diabetic neuropathy ([facility]) Diabetic retinopathy ([facility]) HTN (hypertension) Hyperlipidemia Impaired vision in both eyes KIDNEY TRANSPLANT STATUS 09/07/2003 ESRD s/p renal transplant in 2001 on chronic immunosuppression . Patient on mycophenolate mofetil ,cellcept and prednisone 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) 11/29/2021 Osteomyelitis ([facility]) 11/29/2021 Paroxysmal atrial fibrillation ([facility]) Renal transplant, status post SA node dysfunction ([facility]) s/p pacemaker Type 2 diabetes mellitus with diabetic neuropathy, with long-term current use of insulin ([facility]) 02/24/2002 PAST SURGICAL HISTORY Procedure [...] by mouth daily with lunch. Magic Cup [place] with lunch aspirin, enteric coated (ASPIRIN, ENTERIC [...] TIME: 4:26 PM documented in this encounterOhiohealth Southeastern Medical Center01-05-2023 Miscellaneous Notes* Telephone Encounter - [...] Home and cell number(Ask for Alex's nurse) [phone] Diagnosis 4 mo f/u wound check Best regardsYumiko documented in this encounterOhiohealth Southeastern Medical Center01-05-2023 Miscellaneous Notes* Telephone Encounter - Augusta Medrano RN - 02/19/2022 11:11 AM EST Alex Almonte's nursing facility, [facility] [place], called regarding elevated tacrolimus level (23.9). Spoke with bedside nurse, mukul Enriquez. Level is from last week- unable to clearly determine if medications were held prior to lab work. Reviewed with nurse morning labs should occur prior to lab draws. Patient is scheduled for repeat labs tomorrow. Will assess new level. Augusta Medrano RN documented in this encounterOhiohealth Southeastern Medical Center01-04-2023 Miscellaneous Notes* Telephone Encounter - [...] Mercedez Tavares MA documented in this encounterOhiohealth Southeastern Medical Center12-27-2022 Progress note Author Sadia Aguilar [facility] February 10, 2022 3:47pm Note Date/Time February 10, 2022 3:47pm [facility] [address] [place] [address] Wound Center Provider Note Signed Patient: Alex Almonte MR#: [id number] : 1945 Acct:[id number] Age/Sex: 76 / M Copies to: DO Sadia Whyte APRN~ HPI Date of Visit Date of Visit: Date of Service: 02/10/2022 Time of Service: 15:44 Narrative HPI: 12/30/21 Alex is a 76 year old male presenting to [facility] wound care for aninitial visit for eval and treatment of a sacral/coccyx area pressure ulcer. He resides at [facility]. There is an CAUSTIC STRENGTH INSPECTOR present for the visit. Medicalhoney gel will [...] from initial visit here Mode of Arrival/ Rural Health Consultant: Facility vehicle Assistive Device Used Today: Wheelchair and Indra Lives with:: Care/Nursing Facility Appetite Description: Within Normal Limits Who helps w/ dressing change?: Nursing Facility Why Do You Need Help?: Can't Reach Ulcer, Limited mobility and Taxing effort to leave home Smoking Status: Former smoker [facility] Medical History (Updated 01/20/22 @ 14:21 by [...] Ulcer Pressure Ulcer/Injury Staging: Unstageable Bed Appearance: Tarrants and Yellow Percent of Wound Bed Granulated/Red: 90 Percent of Devitalized: 10 Length (cm): 2.5 Width (cm): 2.3 Depth (cm): 2.1 CM Sq: 5.750 Surrounding Tissue Appearance: Tarrants, Hyperpigmented and Satellite lesions Surrounding Tissue Temp: [...] <Electronically signed by DAVID Aguilar> 02/10/22 [address] [facility] Work Phone: 1(833) 177-158012-22-2022 NoteHNO ID: [id number] Author: Asia Pike MD Service: ? Author Type: Physician Type: Progress Notes Filed: 02/05/2022 9:38 AM Note Text: [facility] [place] Transplant Follow up Portions of this note [...] and snacks patient declined. Indra scale at [facility]: 166.2 lbs per patient. Bed sore on coccyx causing discomfort. Being changed regularly at SNF- reported to be smaller around but still as deep. Patient not very up to date with medications. Patient brought paperwork from [facility] with all medications being received. Patient unsure if they have been drawing labs regularly. Last Tac from 01/19: 12.9 and K 5.9. In need of current labs. Lab orders will be sent with patient and follows as below: Kidney and Pancreas Transplant Standing Lab Orders [id number] [facility] [address] [place], [place] [address] February 05, 2022 Alex Almonte 1945 [id number] STANDARD TESTING: Diagnosis Codes: Z94.0 Kidney Transplant [...] AT YOUR LABORATORY FACILITY AND FAX TO [phone]. PLEASE CALL [phone]. Provider: Dr. Pike Current Outpatient Medications Medication [...] by mouth daily with lunch. Magic Cup [place] with lunch aspirin, enteric coated (ASPIRIN, ENTERIC COATED) 81 mg EC tablet Take 1 tablet by mouth once daily. atorvastatin (LIPITOR) 40 mg tablet 1 tablet by ORAL/FEEDING TUBE route daily at bedtime. (more content not included)...[facility]12-22-2022 History of Present illness Narrative* Asai Pike MD - 02/05/2022 8:20 AM EST Images from the original note were not included. [facility] [place] Transplant Follow up Portions of this note [...] and snacks patient declined. Indra scale at [facility]: 166.2 lbs per patient. Bed sore on coccyx causing discomfort. Being changed regularly at [facility]- reported to be smaller around but still as deep. Patient not very up to date with medications. Patient brought paperwork from [facility] with all medications being received. Patient unsure if they have been drawing labs regularly. Last Tac from 12/5: 12.9 and K 5.9. In need of current labs. Lab orders will be sent with patient and follows as below: Kidney and Pancreas Transplant Standing Lab Orders [id number] [place], [place] [address] February 05, 2022 Alex Almonte 1945 [id number] STANDARD TESTING: Diagnosis Codes: Z94.0 Kidney Transplant [...] AT YOUR LABORATORY FACILITY AND FAX TO [phone]. PLEASE CALL [phone]. Provider: Dr. Pike Current Outpatient Medications Medication [...] by mouth daily with lunch. Magic Cup [place] with lunch aspirin, enteric coated (ASPIRIN, ENTERIC [...] All other system reviews negative. Augusta Medrano, blend technician: February 05, 2022 9:34 AM I have [...] Asia Pike MD documented in this encounterOhiohealth Southeastern Medical Center12-06-2022 Progress note Author Sadia Aguilar [facility] January 20, 2022 2:21pm Note Date/Time January 20, 2022 2 :21pm [facility] [address] [place] [address] Wound Center Provider Note Signed Patient: Alex Almonte MR#: [id number] : 1945 Acct:[id number] Age/Sex: 76 / M Copies to: DO Sadia Whyte APRN~ HPI Date of Visit Date of Visit: Date of Service: 01/20/2022 Time of Service: 14:17 Narrative HPI: 12/30/21 Alex is a 76 year old male presenting to [facility] wound care for aninitial visit for eval and treatment of a sacral/coccyx area pressure ulcer. He resides at [facility]. There is an CAUSTIC STRENGTH INSPECTOR present for the visit. Medicalhoney gel will [...] from initial visit here Mode of Arrival/ Rural Health Consultant: Facility vehicle Assistive Device Used Today: Wheelchair and Indra Lives with:: Care/Nursing Facility Appetite Description: Within Normal Limits Who helps w/ dressing change?: Nursing Facility Why Do You Need Help?: Can't Reach Ulcer, Limited mobility and Taxing effort to leave home Smoking Status: Former smoker [facility] Medical History (Updated 01/20/22 @ 14:21 by [...] Ulcer Pressure Ulcer/Injury Staging: Unstageable Bed Appearance: Tarrants and Yellow Percent of Wound Bed Granulated/Red: 40 Percent of Devitalized: 60 Length (cm): 5.2 Width (cm): 3.4 Depth (cm): 1.8 CM Sq: 17.680 Surrounding Tissue Appearance: Tarrants and Hyperpigmented Surrounding Tissue Temp: Warm Drainage [...] <Electronically signed by DAVID Aguilar> 01/20/22 1421 [facility] Work Phone: [phone] Miscellaneous Notes* Telephone Encounter - Van Olivarez APRN.WELLNESS AMBASSADOR - 01/20/2022 1:12 PM EST Labs noted from yesterday. Pt is currently residing at [facility], I spoke with the Nurse, the results has been addressed by Physician caring for pt. He had been placed on Chlor Con and this has been discontinued and hyperkalemia has been treated. Van Olivarez APRN.DIAMANTE documented in this encounterOhiohealth Southeastern Medical Center11-28-2022 Surgical operation note* Brief Op Note - Misbah Landis PA-C - 01/12/2022 10:41 AM EST BRIEF OPERATIVE / PROCEDURE NOTE LOG ID: [id number] SURGERY/PROCEDURE DATE: 01/12/2022 INCISION/PROCEDURE START TIME: 10:32 AM INCISION CLOSE/PROCEDURE END TIME: 10:35 AM SURGEON(S)/PROCEDURALIST(S) AND OENOLOGIST(S): Misbah Landis PA-C SURGERY/PROCEDURE(S): Removal tunneled vascular access catheter under local anesthesia ANESTHESIA: Procedural Sedation FINDINGS: Catheter removed intact ESTIMATED BLOOD LOSS: 0 ml SPECIMENS: None COMPLICATIONS: None PRE-OP/PRE-PROCEDURE DIAGNOSIS: Foot Ulcer POST-OP/POST-PROCEDURE DIAGNOSIS: Same as Preop SIGNATURE: Misbah Landis PA-C PATIENT NAME: Alex Almonte DATE: January 12, 2022 TIME: 10:42 AM documented in this encounterOhiohealth Southeastern Medical Center11-22-2022 Nurse Note* Laxmi Archibald RN - 01/06/2022 1:55 PM EST Pre-procedure instructions: Contacted patient's sister, Munira Brothers and nurse at [facility] ([phone]) andconfirmed appt. for Gerhard removal scheduled on [...] signed. Arrival at 9:30am to desk QB-1 ([facility]) and check in for your procedure. Nurse Outreach Case Manager/Transportation: How will you be arriving for your procedure? Ambulance service. To be arranged by [facility]. If you develop any of the following symptoms before your procedure, please call [phone]. Chills, joint pain, rash, sore throat, cough, loss of smell, reddened eyes, vomiting, abdominal pains, diarrhea, loss of taste, severe headache, weakness, bruising or bleeding, fever, muscle pain, shortness of breath Recovery expectations: You can expect to be in recovery for 30 minutes following the procedure. Written instructions provided to patient via Man[employer]ut If you have any questions please call [phone] documented in this encounterOhiohealth Southeastern Medical Center11-15-2022 Progress note Author Sadia Aguilar [facility] December 30, 2021 1:49pm Note Date/Time December 30, 2021 1:49pm [facility] [address] [place] [address] Wound Center Provider Note Signed Patient: Alex Almonte MR#: [id number] : 1945 Acct:[id number] Age/Sex: 76 / M Copies to: DO Sadia Whyte APRN~ HPI Date of Visit Date of Visit: Date of Service: 12/30/2021 Time of Service: 13:44 Narrative HPI: 12/30/21 Alex is a 76 year old male presenting to [facility] wound care for aninitial visit for eval and treatment of a sacral/coccyx area pressure ulcer. He resides at [facility]. There is an CAUSTIC STRENGTH INSPECTOR present for the visit. Medicalhoney gel will [...] start?: 4 weeks ago Mode of Arrival/ Rural Health Consultant: Facility vehicle Assistive Device Used Today: Wheelchair and Indra Lives with:: Care/Nursing Facility Appetite Description: Within Normal Limits Who helps w/ dressing change?: Nursing Facility Why Do You Need Help?: Can't Reach Ulcer, Limited mobility and Taxing effort to leave home Smoking Status: Former smoker [facility] Medical History (Updated 12/30/21 @ 13:49 by [...] 0.1 CM Sq: 38.500 Surrounding Tissue Appearance: Tarrants and Hyperpigmented Surrounding Tissue Temp: Warm Drainage [...] <Electronically signed by DAVID Aguilar> 12/30/21 [facility] Work Phone: [phone] 695-289211-15-2022 History of Present illness Narrative* Paresh Fonseca [...] the rehab facility He is currently at [facility] in [facility] Seen on video together with Zoe -history [...] has local wound care following this at [facility] WBC 6.0, creatinine -- 0.8. [...] by mouth daily with lunch. Magic [employer] [place] with lunch aspirin, enteric coated (ASPIRIN, ENTERIC [...] is a 76 year old male from [facility]. 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 History of PAD CAD status post CABG, diabetes, atrial fibrillatioN He originally presented [facility] for having altered mental status and [...] 3. Status post right heel I&D at [facility] on 11/24/2021. 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 4. CKD - s/p gerhard placement 5. immunocompromised Status post right open above the ankle [id number] - Enterobacter and MRSA from cultures Gram-positive [...] will need to coordinate with his SNF [phone] --our ID office will need to arrange for IR gerhard removal. Return to ID as needed 10 Minutes spent via virtual visit. SIGNATURE: Paresh Fonseca MD PATIENT NAME: Alex Almonte DATE: December 30, 2021 TIME: 9:52 AM documented in this encounterOhiohealth Southeastern Medical Center11-01-2022 Miscellaneous Notes* Telephone Encounter - Sulma Pardo - 12/16/2021 3:13 PM EDT Pt respiratory therapy manager is requesting orders for Stomp ampushield to be taken off pressure relief because it is causing sores on the thigh. Thanks, Sulma Pardo Manufacturers Agent documented in this encounterOhiohealth Southeastern Medical Center10-31-2022 Miscellaneous Notes* Telephone Encounter - Gwen Alfredo Adm Asst I - 12/15/2021 4:11 PM EDT Rupa LYLES from [facility] [phone] called to report IV Vancomycin was started until today. Patient missed 3 days, should patient makeup missed doses? Please advise. Gwen Alfredo Adm Asst I documented in this encounterOhiohealth Southeastern Medical Center10-21-2022 Instructions* Patient Instructions* Paresh Fonseca [...] serious illness Are taking any medications (prescription, vfpu-wvi-yrwfgwt, vitamins, or herbal products) How will I receive EVUSHELD? EVUSHELD consists of two investigational medicines, tixagevimab and cilgavimab. You will receive 1 dose of EVUSHELD, consisting of 2 separate injections (tixagevimab and cilgavimab). EVUSHELD will be given to you by your healthcare provider as 2 intramuscular injections, given one after the other. Viruses can telephone exchange operator time (mutate) and develop into a slightly [...] caused by certain SARS-CoV-2 variants: Viruses can telephone exchange operator time (mutate) and develop into a slightly [...] treatment or prevention of COVID-19 go to https://www.fda.gov/pijeylcdf-txdssjsuscrs-dry- response/yvq-kgwqi-hngnexbdog-zei-gfksgj-sueadjvxm/yqqtekgut-umz-yrchjhkqlbjbv for more information. It is your choice [...] not go away. Report side effects to Anchor™ at www.[place].gov/medSteelbox, Inc. or call 3-000-FVU-7711 or call [employer] . Additional Information If you have questions, visit the website or call the telephone number provided below. Website Telephone number http://YongChe How can I learn more about COVID-19? Ask your healthcare provider. Visit https://www.cdc.gov/COVID19 Contact your local or state public health department. What is an Emergency Use Authorization? The [place] FDA has made EVUSHELD (tixagevimab co-packaged with cilgavimab) available under an emergency access mechanism called an Emergency Use Authorization EUA. The EUA is supported by a [place] of Health and Human Service (HHS) declaration [...] monohydrate, polysorbate 80, sucrose, water. Distributed by: [employer], [place] Manufactured for: [employer] [place] [employer] 2021. All rightsreserved. documented in this encounterOhiohealth Southeastern Medical Center10-21-2022 Miscellaneous Notes* Telephone Encounter - Paresh Fonseca MD - 12/05/2021 3:05 PM EDT Evusheld (tixagevimab/cilgavimab) Eligibility and Patient Discussion The patient agrees to receive Evusheld (tixagevimab 300 mg and cilgavimab 300 mg) at [place]. The patient verbalized understanding of repeating a COVID test 72 hours prior to the injections. called up patient in response to her [employer] message today she tested covid negative on a rapid test on Wednesday this week Discussed evushed fact sheet and she agrees to proceed she will retest again today to be scheduled for Friday 12/08 at [facility] Paresh Fonseca MD documented in this encounterOhiohealth Southeastern Medical Center10-03-2022 Instructions* Patient Instructions* No Reeder DO - 11/17/2021 4:26 PM EDT -- continue coumadin -- will get vascular ultrasound for vein and artery of your right leg -- will have you see my interventional cardiology partner regarding your peripheral artery disease and if your artery disease is impairing your wound healing for the leg ulcer documented in this encounterOhiohealth Southeastern Medical Center10-03-2022 History of Present illness Narrative* No Reeder DO - 11/17/2021 3:53 PM EDT Images from the original note were not included. Heart [facility] V[facility] [place] Department of Cardiovascular Medicine SECTION [...] DVT scan. Leg elevation. No Reeder DO, [facility] V[facility] Medicine documented in this encounterOhiohealth Southeastern Medical Center08-16-2022 History of Past illness Narrative* Problem Noted Date Resolved Date Altered tissue perfusion documented as of this encounter (statuses as of 09/30/2021) [address]16-2022 History of Past illness Narrative* Problem Noted Date Resolved Date Altered tissue perfusion documented as of this encounter (statuses as of 10/09/2021) [address]16-2022 History of Past illness Narrative* Problem Noted Date Resolved Date Altered tissue perfusion documented as of this encounter (statuses as of 11/18/2021) [address]16-2022 History of Past illness Narrative* Problem Noted Date Resolved Date Altered tissue perfusion documented as of this encounter (statuses as of 12/01/2021) [address]16-2022 History of Past illness Narrative* Problem Noted Date Resolved Date Altered tissue perfusion documented as of this encounter (statuses as of 12/05/2021) [address]16-2022 History of Past illness Narrative* Problem Noted Date Resolved Date Altered tissue perfusion 16/2 022 documented as of this encounter (statuses as of 12/08/2021) [address]16-2022 History of Past illness Narrative* Problem Noted Date Resolved Date Altered tissue perfusion 16/2 022 documented as of this encounter (statuses as of 12/08/2021) [address]16-2022 History of Past illness Narrative* Problem Noted Date Resolved Date Altered tissue perfusion 16/2 022 documented as of this encounter (statuses as of 12/12/2021) [address]16-2022 History of Past illness Narrative* Problem Noted Date Resolved Date Altered tissue perfusion 16/2 022 documented as of this encounter (statuses as of 12/15/2021) [address]16-2022 History of Past illness Narrative* Problem Noted Date Resolved Date Altered tissue perfusion 16/2 022 documented as of this encounter (statuses as of 12/16/2021) [address]16-2022 History of Past illness Narrative* Problem Noted Date Resolved Date Altered tissue perfusion 16/2 022 documented as of this encounter (statuses as of 12/31/2021) [address]16-2022 History of Past illness Narrative* Problem Noted Date Resolved Date Altered tissue perfusion 16/2 022 documented as of this encounter (statuses as of 01/13/2022) [address]16-2022 History of Past illness Narrative* Problem Noted Date Resolved Date Altered tissue perfusion 16/2 022 documented as of this encounter (statuses as of 01/20/2022) [address]16-2022 History of Past illness Narrative* Problem Noted Date Resolved Date Altered tissue perfusion 16/2 022 documented as of this encounter (statuses as of 02/06/2022) [address]16-2022 History of Past illness Narrative* Problem Noted Date Resolved Date Altered tissue perfusion /16/2 022 documented as of this encounter (statuses as of 02/20/2022) [address]16-2022 History of Past illness Narrative* Problem Noted Date Resolved Date Altered tissue perfusion /16/2 022 documented as of this encounter (statuses as of 02/26/2022) [address]16-2022 History of Past illness Narrative* Problem Noted Date Resolved Date Altered tissue perfusion documented as of this encounter (statuses as of 02/27/2022) [address]16-2022 History of Past illness Narrative* Problem Noted Date Resolved Date Altered tissue perfusion documented as of this encounter (statuses as of 03/21/2022) [address]16-2022 History of Past illness Narrative* Problem Noted Date Resolved Date Altered tissue perfusion documented as of this encounter (statuses as of 03/30/2022) [address]16-2022 History of Past illness Narrative* Problem Noted Date Resolved Date Altered tissue perfusion documented as of this encounter (statuses as of 04/06/2022) [address]16-2022 History of Past illness Narrative* Problem Noted Date Resolved Date Altered tissue perfusion documented as of this encounter (statuses as of 05/13/2022) [address]16-2022 History of Past illness Narrative* Problem Noted Date Diagnosed Date Resolved Date Altered tissue perfusion documented as of this encounter (statuses as of 2022) [address]16-2022 History of Past illness Narrative* Problem Noted Date Diagnosed Date Resolved Date Altered tissue perfusion documented as of this encounter (statuses as of 10/29/2022) [facility]08-16-2022 Miscellaneous Notes* Telephone Encounter - [...] pharmacy. Katina Duque documented in this encounterOhiohealth Southeastern Medical Center05-31-2022 Miscellaneous Notes* Telephone Encounter - [...] Rosibel Yehleela Adm documented in this encounterOhiohealth Southeastern Medical Center04-21-2022 Miscellaneous Notes* Telephone Encounter - Van Olivarez APRN.CNP - 06/05/2021 4:46 PM EDT Spoke with pt regarding latest results, scr. at baseline. TAC level 8.6 prev two levels in 5 range.He believes latest level would be 12hr trough. No changes for now, if next level >7, can consider if reduction appropriate. He understands. Van Olivarez APRN.CNP [facility]* Diagnosis Screening for genitourinary condition Screening for other and unspecified genitourinary condition documented in this encounter [facility]* Diagnosis Acute deep vein thrombosis (DVT) of proximal end of right lower extremity (HCC)- Primary PAD (peripheral artery disease) ([facility]) Peripheral vascular disease, unspecified Nonhealing ulcer of heel (HCC) Anticoagulation management encounter Encounter for therapeutic drug monitoring documented in this encounter [facility] note* Diagnosis Encounter for prophylactic measures, unspecified- Primary documented in this encounter [facility] note* Diagnosis Kidney replaced by transplant- Primary documented in this encounter [facility] note* Diagnosis MRSA bacteremia- Primary Bacteremia Diabetic foot ulcer with osteomyelitis (HCC) Type II or unspecified type diabetes mellitus with other specified manifestations, not stated as uncontrolled ILIANA (acute kidney injury) ([facility]) Acute kidney failure, unspecified documented in this encounter [facility] note* Diagnosis Kidney replaced by transplant- Primary 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 current use of immunosuppressive drug documented in this encounter [facility] note* Diagnosis Hx of BKA, right ([facility])- Primary PAD (peripheral artery disease) ([facility]) Peripheral vascular disease, unspecified Mixed hyperlipidemia due to type 2 diabetes mellitus ([facility]) Type II or unspecified type diabetes mellitus with renal manifestations, uncontrolled(250.42) Type II or unspecified type diabetes mellitus with renal manifestations, uncontrolled Type 2 diabetes mellitus with diabetic neuropathy, with long-term current use of insulin (HCC) Type 2 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, with long-term current use of insulin ([facility]) Paroxysmal atrial fibrillation ([facility]) Atrial fibrillation documented in this encounter [facility] note* Diagnosis Screening for genitourinary condition Screening for other and unspecified genitourinary condition documented in this encounter [facility] note* Diagnosis Onset Date Resolution Status At high risk for skin breakdown chronic Diabetes chronic Fecal incontinence chronic Limited mobility chronic Poor appetite chronic Pressure ulcer of sacral region, unstageable chronic Candidiasis resolved [facility] Work Phone: Evaluation noteNo [employer] Other Evaluation note* Diagnosis Kidney replaced by transplant- Primary documented in this encounter [facility] note* Diagnosis Type 1 diabetes mellitus [...] COLONOSCOPY 1995,2001, 2014 Hospitalization History see above [employer] Other Progress note Author Sadia Aguilar [facility] July 20, 2022 1:48pm Note Date/Time July 20, 2022 1:48p m [facility] [address] [place] [address] Wound Center Provider Note Signed Patient: Alex Almonte MR#: [id number] : 1945 Acct:[id number] Age/Sex: 76 / M Copies to: DO Sadia Whyte, DAVID~ HPI Date of Visit Date of Visit: Date of Service: 07/20/2022 Time of Service: 13:46 Narrative HPI: 12/30/21 Alex is a 76 year old male presenting to [facility] wound care for aninitial visit for eval and treatment of a sacral/coccyx area pressure ulcer. He resides at [facility]. There is an CAUSTIC STRENGTH INSPECTOR present for the visit. Medicalhoney gel will [...] from initial visit here Mode of Arrival/ Rural Health Consultant: Facility vehicle Assistive Device Used Today: Wheelchair and Idnra Lives with:: Care/Nursing Facility Appetite Description: Within Normal Limits Who helps w/ dressing change?: Nursing Facility Why Do You Need Help?: Can't Reach Ulcer, Limited mobility and Taxing effort to leave home Smoking Status: Former smoker [facility] Medical History (Updated 03/03/22 @ 14:41 by [...] With Patient (min): 10 Dictated By: Sadia Aguialr APRN DD/ Signed By: <Electronically signed by DAVID Aguilar> 07/20/22 [address] [facility] Work Phone: Reason for referral (narrative)* Outpatient Procedure (Routine) - Authorized Specialty Diagnoses / Procedures Referred By Felicia carreno [facility] Diagnoses PAD (peripheral artery disease) (HCC) Nonhealing ulcer of heel (HCC) Procedures US LEG ARTERIAL PERIPH UNL VAS LAB DUP-SCAN LXTR ART/ARTL BPGS UNI/LMTD STUDY No Reeder DO [address] [place] [id number] [facility] And Vascular [address] [address] Referral ID Status Reason Start Date Expiration Date Visits Requested Visits Authorized [id number] Authorized Auto-Generat ed Referral 11/17/2021 11/17/2022 1 1 * Outpatient Procedure (Routine) - Authorized Specialty Diagnoses / Procedures Referred By Contac t Referred To Contact [facility] [place] Diagnoses Acute deep vein thrombosis (DVT) of proximal end of right lower extremity (HCC) Procedures US LEG VEIN DVT UNL VAS LAB DUP-SCAN XTR VEINS UNILATERAL/LIMITED STUDY No Reeder DO [address] [place] [address] [place] [address] Referral ID Status Reason Start Date Expiration Date Visits Requested Visits Authorized [id number] Authorized Auto-Generat ed Referral 11/17/2021 11/17/2022 1 1 * Consult, Test, Treat (Routine) - Authorized Specialty Diagnoses / Procedures Referred By Contac t Referred To Contact Cardiology Diagnoses PAD (peripheral artery disease) ([facility]) Nonhealing ulcer of heel ([facility]) Procedures CONSULT TO CARDIOLOGY OFFICE/OUTPATIENT [facility] 60-[place] [address] [place] [address] Referral ID Status Reason Start Date Expiration Date Visits Requested Visits Authorized [id number] Authorized PCP Requested Referral 11/17/2021 11/17/2022 1 1 [facility] Summary Purpose Family History No Family History Records Found Relationship Condition Age at Onset Recorded Date/T kartik father Aneurysm Unknown father Parkinson's disease Unknown Advance Directives No Advanced Directives Records FoundDocuments on File Type Date Recorded Patient Graves Registration Specialist Expl anation Advance Directive(s) Latest Code Status [...] Maker Relationship: M ajority of Adult Siblings (telecommunications sales representative) DNR-CCA 09/26/2021 11:56 AM 10/01/2021 [...] Decision Maker Relationship: Majority of Adult Siblings (telecommunications sales representative) Code Status History Code Status [...] and content) DATE CREATED AUTHOR 02/20/2021 [employer] DATE CREATED AUTHOR AUTHOR'S ORGANIZ ATION 07/25/2022 [facility] DATE CREATED AUTHOR AUTHOR'S ORGANIZ ATION 08/16/2022 [facility] DATE CREATED AUTHOR AUTHOR'S ORGANIZ ATION 01/14/2023 [facility] DATE CREATED AUTHOR AUTHOR'S ORGANIZ ATION 05/25/2023 [facility] DATE CREATED AUTHOR AUTHOR'S ORGANIZ ATION 06/19/2023 [facility] dical Specialists EPIC Source Comments (unrecognize d section and content) In the event this informatio n is protected by the Federal Confidentiality of Alcohol and Drug Abuse Patient Records regulations: The Federal rules restrict any use of the information to criminally investigate or prosecute any alcohol or drug abuse patient.[facility] Medical CenterIn the event this information is protected by the Federal Confidentiality of Alcohol and Drug Abuse Patient Records regulations: The Federal rules restrict any use of the information to criminally investigate or prosecute any alcohol or drug abuse patient.[facility] Medical CenterIn the event this information is protected by the Federal Confidentiality of Alcohol and Drug Abuse Patient Records regulations: The Federal rules restrict any use of the information to criminally investigate or prosecute any alcohol or drug abuse patient.[facility] Medical CenterIn the event this information is protected by the Federal Confidentiality of Alcohol and Drug Abuse Patient Records regulations: The Federal rules restrict any use of the information to criminally investigate or prosecute any alcohol or drug abuse patient.[facility] Medical CenterIn the event this information is protected by the Federal Confidentiality of Alcohol and Drug Abuse Patient Records regulations: The Federal rules restrict any use of the information to criminally investigate or prosecute any alcohol or drug abuse patient.[facility] Medical CenterIn the event this information is protected by the Federal Confidentiality of Alcohol and Drug Abuse Patient Records regulations: The Federal rules restrict any use of the information to criminally investigate or prosecute any alcohol or drug abuse patient.[facility] CenterIn the event this information is protected by the Federal Confidentiality of Alcohol and Drug Abuse Patient Records regulations: The Federal rules restrict any use of the information to criminally investigate or prosecute any alcohol or drug abuse patient.[facility] CenterIn the event this information is protected by the Federal Confidentiality of Alcohol and Drug Abuse Patient Records regulations: The Federal rules restrict any use of the information to criminally investigate or prosecute any alcohol or drug abuse patient.[facility] CenterIn the event this information is protected by the Federal Confidentiality of Alcohol and Drug Abuse Patient Records regulations: The Federal rules restrict any use of the information to criminally investigate or prosecute any alcohol or drug abuse patient.[facility] CenterIn the event this information is protected by the Federal Confidentiality of Alcohol and Drug Abuse Patient Records regulations: The Federal rules restrict any use of the information to criminally investigate or prosecute any alcohol or drug abuse patient.[facility] CenterIn the event this information is protected by the Federal Confidentiality of Alcohol and Drug Abuse Patient Records regulations: The Federal rules restrict any use of the information to criminally investigate or prosecute any alcohol or drug abuse patient.[facility] CenterIn the event this information is protected by the Federal Confidentiality of Alcohol and Drug Abuse Patient Records regulations: The Federal rules restrict any use of the information to criminally investigate or prosecute any alcohol or drug abuse patient.[facility] CenterIn the event this information is protected by the Federal Confidentiality of Alcohol and Drug Abuse Patient Records regulations: The Federal rules restrict any use of the information to criminally investigate or prosecute any alcohol or drug abuse patient.[facility] CenterIn the event this information is protected by the Federal Confidentiality of Alcohol and Drug Abuse Patient Records regulations: The Federal rules restrict any use of the information to criminally investigate or prosecute any alcohol or drug abuse patient.[facility] CenterIn the event this information is protected by the Federal Confidentiality of Alcohol and Drug Abuse Patient Records regulations: The Federal rules restrict any use of the information to criminally investigate or prosecute any alcohol or drug abuse patient.[facility] CenterIn the event this information is protected by the Federal Confidentiality of Alcohol and Drug Abuse Patient Records regulations: The Federal rules restrict any use of the information to criminally investigate or prosecute any alcohol or drug abuse patient.[facility] CenterIn the event this information is protected by the Federal Confidentiality of Alcohol and Drug Abuse Patient Records regulations: The Federal rules restrict any use of the information to criminally investigate or prosecute any alcohol or drug abuse patient.[facility] CenterIn the event this information is protected by the Federal Confidentiality of Alcohol and Drug Abuse Patient Records regulations: The Federal rules restrict any use of the information to criminally investigate or prosecute any alcohol or drug abuse patient.[facility] CenterIn the event this information is protected by the Federal Confidentiality of Alcohol and Drug Abuse Patient Records regulations: The Federal rules restrict any use of the information to criminally investigate or prosecute any alcohol or drug abuse patient.[facility] CenterIn the event this information is protected by the Federal Confidentiality of Alcohol and Drug Abuse Patient Records regulations: The Federal rules restrict any use of the information to criminally investigate or prosecute any alcohol or drug abuse patient.[facility] CenterIn the event this information is protected by the Federal Confidentiality of Alcohol and Drug Abuse Patient Records regulations: The Federal rules restrict any use of the information to criminally investigate or prosecute any alcohol or drug abuse patient.[facility] CenterIn the event this information is protected by the Federal Confidentiality of Alcohol and Drug Abuse Patient Records regulations: The Federal rules restrict any use of the information to criminally investigate or prosecute any alcohol or drug abuse patient.[facility] CenterIn the event this information is protected by the Federal Confidentiality of Alcohol and Drug Abuse Patient Records regulations: The Federal rules restrict any use of the information to criminally investigate or prosecute any alcohol or drug abuse patient.[facility] CenterIn the event this information is protected by the Federal Confidentiality of Alcohol and Drug Abuse Patient Records regulations: The Federal rules restrict any use of the information to criminally investigate or prosecute any alcohol or drug abuse patient.[facility] CenterIn the event this information is protected by the Federal Confidentiality of Alcohol and Drug Abuse Patient Records regulations: The Federal rules restrict any use of the information to criminally investigate or prosecute any alcohol or drug abuse patient.[facility] CenterIn the event this information is protected by the Federal Confidentiality of Alcohol and Drug Abuse Patient Records regulations: The Federal rules restrict any use of the information to criminally investigate or prosecute any alcohol or drug abuse patient.[facility] Reason for Visit (unrecogniz ed [...] Care Teams (unrecognized sec tion and content) Special Procedures Tech Relationship Specialty Start Date End Date Devon Moreira, DO [address] [place] [address] PCP - General 05/27/00 Special Procedures Tech Relationship Specialty Start Date End Date Devon Moreira, DO [address] [place] [address] PCP - General 05/27/00 Special Procedures Tech Relationship Specialty Start Date End Date Devon Moreira, DO [address] [place] [facility] [place] [place] [address] PCP - General 05/27/00 Special Procedures Tech Relationship Specialty Start Date End Date Devon Moreira Raquel, DO [address] [place] [address] PCP - General 05/27/00 Special Procedures Tech Relationship Specialty Start Date End Date Devon Moreira, DO [address] [place] [address] PCP - General 05/27/00 Special Procedures Tech Relationship Specialty Start Date End Date Devon Moreira, DO [address] [place] [address] PCP - General 05/27/00 Special Procedures Tech Relationship Specialty Start Date End Date Devon Moreira, DO [address] [place] [address] PCP - General 05/27/00 Special Procedures Tech Relationship Specialty Start Date End Date Devon Moreira, DO [address] [place] [address] PCP - General 05/27/00 Special Procedures Tech Relationship Specialty Start Date End Date Devon Moreira, DO [address] [place] [address] PCP - General 05/27/00 Special Procedures Tech Relationship Specialty Start Date End Date Devon Moreira, DO [address] [place] [address] PCP - General 05/27/00 Special Procedures Tech Relationship Specialty Start Date End Date Devon Moreira, DO [address] [place] [address] PCP - General 05/27/00 Special Procedures Tech Relationship Specialty Start Date End Date Devon Moreira, DO [address] [place] [address] PCP - General 05/27/00 Special Procedures Tech Relationship Specialty Start Date End Date Devon Moreira, DO [address] [place] [address] PCP - General 05/27/00 Special Procedures Tech Relationship Specialty Start Date End Date Devon Moreira, DO [address] [place] [address] PCP - General 05/27/00 Special Procedures Tech Relationship Specialty Start Date End Date Devon Moreira, DO [address] [place] [address] PCP - General 05/27/00 Special Procedures Tech Relationship Specialty Start Date End Date Devno Moreira, DO [address] [place] [address] PCP - General 05/27/00 Special Procedures Tech Relationship Specialty Start Date End Date Devon Moreira, DO [address] [place] [address] PCP - General 05/27/00 Special Procedures Tech Relationship Specialty Start Date End Date Devon Moreira, DO [address] [place] [place] [address] PCP - General 05/27/00 Special Procedures Tech Relationship Specialty Start Date End Date Devon Moreira, DO [address] [place] [facility] [place] [place] [address] PCP - General 05/27/00 Team Status: Active Member Role Status Dates Devon Moreira DO Primary Care Provider Active Team Status: Inactive Member Role Status Dates Devon Moreira DO Primary Care Provider Active Sadia Aguilar APRN Attending Provider Active Special Procedures Tech Relationship Specialty Start Date End Date Devon Moreira, DO [address] [place] [place] [address] PCP - General 05/27/00 Special Procedures Tech Relationship Specialty Start Date End Date Devon Moreira, DO [address] [place] [place] [address] PCP - General 05/27/00 Special Procedures Tech Relationship Specialty Start Date End Date Ni Cabrera DO [address] [place] [address] PCP - ACO Reach 07/09/22 Devon Moreira MD [address] [facility] [facility] [place] [id number] PCP - General Internal Medicine 07/14/22 PRN Active and Recently Administ ered Medications (unrecognized section and content) Medication Order 01/10/2022 01/11/2022 01/12/2022 lidocaine (PF) 10 mg/mL (1 %) injection (XYLOCAINE) SUBCUTANEOUS, X (OR/PROCEDURE) PRN, Starting on 01/12/22 at 1032, Until Tu01/13/22 at 0303, Intraprocedure 1032 (Given - Provid er: Vani Hdz APRN.[employer]) Goals (unrecognized section and content) Goals may [...] BE BASED ON THE PRIMARY CLINICAL RECORDS. [employer] provides no warranty or guarantee of the accuracy or completeness of information in this document.
[2023-09-01 07:41] LABS: Basophils Absolute Auto 0.1 10^3/uL (0.0-0.1); Basophils Percent Auto 0.8 % (0.2-2.0); Eosinophils Absolute Auto 0.3 10^3/uL (0.0-0.7); Eosinophils Percent Auto 3.8 % (0.9-7.0); Hematocrit 24.8 % (42.0-54.0); Hemoglobin 7.5 g/dL (14.0-18.0); Immature Granulocytes Abs Auto 0.02 10^3/uL (0.00-0.03); Immature Granulocytes Pct Auto 0.3 % (0.0-0.5); Lymphocytes Percent Auto 30.6 % (20.5-60.0); Mean Corpuscular HGB Conc 30.2 g/dL (29.9-35.2); Mean Corpuscular Hemoglobin 23.7 pg (25.9-34.0); Mean Corpuscular Volume 78.2 fL (80.0-94.0); Mean Platelet Volume 10.8 fL (9.5-13.5); Monocytes Absolute Auto 0.8 10^3/uL (0.3-0.8); Monocytes Percent Auto 11.6 % (1.7-12.0); Neutrophils Absolute Auto 3.5 10^3/uL (1.4-6.5); Neutrophils Percent Auto 52.9 % (43.0-75.0); Platelet Count 241 10^3/uL (150-450); Red Blood Count 3.17 10^6/uL (4.70-6.10); Red Cell Distribution Width 17.6 % (11.0-15.0); White Blood Count 6.6 10^3/uL (4.0-11.0)
[2023-09-01 07:59] LABS: Alanine Aminotransferase 11 U/L (16-63); Albumin Globulin Ratio 0.9; Albumin Level 2.7 g/dL (3.4-5.0); Alkaline Phosphatase 76 U/L (46-116); Anion Gap 11.1; Aspartate Amino Transferase 14 U/L (15-37); BUN Creatinine Ratio 23.6; Bilirubin Total 0.7 mg/dL (0.2-1.0); Calcium 8.1 mg/dL (8.5-10.1); Carbon Dioxide 27.6 mmol/L (21.0-32.0); Chloride 103 mmol/L (98-107); Estimated GFR (African America 58 (>=60); Estimated GFR (Non-African Ame 47 (>=60); Glucose 213 mg/dL (74-106); Potassium 3.7 mmol/L (3.5-5.1); Sodium 138 mmol/L (136-145); Total Protein 5.7 g/dL (6.4-8.2)
[2023-09-01 08:11] LABS: INR 3.27; Prothrombin Time 30.8 sec (9.0-11.6)
== END 2023-09-01 04:08 | disposition home or self-care (01) ==
LOC: LAB 04:07
PROVIDERS: PCP Internal Medicine; Visit Provider Internal Medicine
DX: N18.9 Chronic kidney disease, unspecified (principal)
CPT/HCPCS: 36415; 80053; 80197; 85025; 85610

== ENCOUNTER 2023-09-02 08:42 | Outpatient (RCR) | payer MEDICARE, OTHER, SELFPAY ==
[2023-09-02 09:53] VITALS: BP 100/63; PULSE 71; TEMP 36.6; O2SAT 98
[2023-09-02] MEDS: IRON SUCROSE COMPLEX 300 MG in 0.9 % SODIUM CHLORIDE 250 ML 176.667 MG IV (10:21)
--- NOTE | 2023-09-02 10:53 | PC.NURSE ---
0953: Pt. to [facility] via w/c accompanied by sister. Pt. requests to remain in w/c due to need for jordyn lift to transfer. IV initiated per. Arcelia Pantoja, see documentation. Pt. tolerated without c/o. Pt. drinking own water. Declines snack. Re-positioned for comfort.
--- NOTE | 2023-09-02 11:00 | PC.NURSE ---
1021: IV Charles initiated at this time. Pt. without c/o.
--- NOTE | 2023-09-02 11:20 | PC.NURSE ---
1115: Resting quietly with eyes closed. IV site clear. Appears to be without s&s of distress. Sister at chairside.
--- NOTE | 2023-09-02 12:04 | PC.NURSE ---
1150: IV Venofer completed without s&s of adverse reaction. IV d/c'd, pressure to site. 1151: D/c'd via w/c back to care center with sister.
== END 2023-09-15 23:59 | disposition home or self-care (01) ==
LOC: INF 08:42
PROVIDERS: PCP Internal Medicine; Visit Provider Internal Medicine
DX: D64.9 Anemia, unspecified (principal)
CPT/HCPCS: 96365; J1756

== ENCOUNTER 2023-09-08 08:00 | Outpatient (REF) | payer MEDICARE, OTHER, SELFPAY ==
[2023-09-08 09:05] LABS: Basophils Percent Auto 0.5 % (0.2-2.0); Eosinophils Absolute Auto 0.3 10^3/uL (0.0-0.7); Eosinophils Percent Auto 4.3 % (0.9-7.0); Hematocrit 26.5 % (42.0-54.0); Hemoglobin 8.1 g/dL (14.0-18.0); Immature Granulocytes Abs Auto 0.02 10^3/uL (0.00-0.03); Immature Granulocytes Pct Auto 0.3 % (0.0-0.5); Mean Corpuscular HGB Conc 30.6 g/dL (29.9-35.2); Mean Corpuscular Hemoglobin 24.8 pg (25.9-34.0); Mean Corpuscular Volume 81.3 fL (80.0-94.0); Mean Platelet Volume 11.4 fL (9.5-13.5); Monocytes Absolute Auto 0.8 10^3/uL (0.3-0.8); Neutrophils Absolute Auto 3.4 10^3/uL (1.4-6.5); Neutrophils Percent Auto 51.9 % (43.0-75.0); Platelet Count 237 10^3/uL (150-450); Red Blood Count 3.26 10^6/uL (4.70-6.10); Red Cell Distribution Width 20.7 % (11.0-15.0); White Blood Count 6.5 10^3/uL (4.0-11.0)
[2023-09-08 09:17] LABS: Alanine Aminotransferase 13 U/L (16-63); Albumin Globulin Ratio 0.8; Albumin Level 2.5 g/dL (3.4-5.0); Alkaline Phosphatase 69 U/L (46-116); Anion Gap 9.7; Aspartate Amino Transferase 21 U/L (15-37); BUN Creatinine Ratio 21.8; Bilirubin Total 0.9 mg/dL (0.2-1.0); Calcium 8.1 mg/dL (8.5-10.1); Carbon Dioxide 29.2 mmol/L (21.0-32.0); Chloride 105 mmol/L (98-107); Estimated GFR (African America 58 (>=60); Estimated GFR (Non-African Ame 48 (>=60); Globulin 3.1 g/dL; Glucose 193 mg/dL (74-106); Magnesium 1.7 mg/dL (1.8-2.4); Phosphorus 3.5 mg/dL (2.6-4.7); Potassium 3.9 mmol/L (3.5-5.1); Sodium 140 mmol/L (136-145); Total Protein 5.6 g/dL (6.4-8.2)
[2023-09-08 09:50] LABS: Prothrombin Time 49.5 sec (9.0-11.6)
[2023-09-08 09:51] LABS: INR 5.53
== END 2023-09-08 08:01 | disposition home or self-care (01) ==
LOC: LAB 08:00
PROVIDERS: PCP Internal Medicine; Visit Provider Internal Medicine
DX: Z51.81 Encounter for therapeutic drug level monitoring (principal); N18.9 Chronic kidney disease, unspecified
CPT/HCPCS: 36415; 80053; 80197; 83735; 84100; 85025; 85610

== ENCOUNTER 2023-09-10 03:05 | Outpatient (REF) | payer MEDICARE, OTHER, SELFPAY ==
--- OUTSIDE RECORDS SUMMARY | 2023-09-10 03:14 | XMS_ITS | CCD ---
Author Organization [facility] Care Team Providers Care Shift Engineer Name Role Phone PROVIDER, UNKNOWN Attending Unavailable PROVIDER, UNKNOWN Admitting Unavailable Rico DO, Devon García Primary Care Provider Ball DO, Devon García Primary Care Provider Ball DO, Devon E Primary Care Provider Ball DO, Devon García Primary Care Provider Rico, Devon Unavailable NABEEL, DR PROSPER Douglas Attending [...] CASTANO Consulting Unavailable NO FLORES Consulting Unavailable KANHCAN ., MARY ANN Consulting Unavailable DARAMOLCYN Douglas [...] Attending Unavailable BALL, DR OSORIO Admitting Unavailable Rico, DO Osorio Primary Care Provider DAVID Aguilar Attending Provider [phone] Sadia Aguilar Attending Unavailable Sadia Aguilar Admitting Unavailable Devon Moreira Primary Care Unavailable DEVON MOREIRA Referring Unavailable HNIA PETERSON Attending Unavailable DEVON MOREIRA Primary Care Unavailable ARTUR CHEN Referring Unavailable DEVON MOREIRA Primary Care Unavailable PetNi moreno DO Unavailable [phone] Devon Moreira MD Primary Care Provider NI CABRERA Attending Unavailable DEVON MOREIRA Referring Unavailable NI CABRERA Attending Unavailable DEVON MOREIRA Referring Unavailable CAITY IBRAHIM Attending Unavailable MILAGRO QUEEN Referring Unavailable MILAGRO QUEEN Referring Unavailable SARTHAK PARNELL Attending Unavailable Allergies Allergy Classification Reported Allergen(s) Allergy Type Date of Onset Reaction(s) Facility (20 sources) Pyridostigmine; Translations: [PYRIDOSTIGMINE BROMIDE] Drug Allergy 2 GI Upset [facility] Work Phone: (1 source) Pyridostigmine Drug [...] Indications: Type 1 diabetes mellitus with nephropathy ([facility]) 3 units breakfast, [...] 10 units and notify provider [facility] [place] [place] 155-852-130 MG (6 sources) take 155-852 tablets by mouth twice daily [facility] [place] [place] 155-852-130 MG 1 tablet Orally twice daily Active take 155-852 tablets by mouth four times daily take 155-852 tablets by mouth four times daily [facility] [place] [place] 155-852-130 MG 1 tablet Orally Four times [...] oral capsule (18 sources) Opioid Agonist Start: 11-15-2022 take 5 mg by mouth every four [...] needed. docusate sodium 50 mg / sennosides, long term 8.6 mg oral tablet (20 sources) Start: [...] by mouth daily with lunch. Magic Cup Tensas with lunch 7110 mL 0 12/11/2021 Active Comment on above: Take 237 mL by mouth daily with lunch. Magic Cup Tensas with lunch polyethylene glycol 3350 20441 mg powder for oral solution (20 sources) [...] Coronary arteriosclerosis; Translations: [Atherosclerotic heart disease of [place] coronary artery without angina pectoris] Onset: 7 [...] current use of immunosuppressive drug; Translations: [Other long wall shear operator (current) drug therapy] Episodic Other aftercare (13 sources) Long-term current use of insulin; Translations: [MCC (current) use of insulin] Episodic Other aftercare (10 sources) terminal clerk (current) use of insulin; Translations: [FIGURE MODEL CURRENT USE OF INSULIN] Onset: 2 Episodic Other aftercare (5 sources) terminal clerk (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 of anticoagulants; Translations: [FIGURE MODEL CURRNT USE ANTICOAGULANTS] Onset: 3 Episodic Other [...] 07-30-2006 Episodic Other aftercare (2 sources) Other fci (current) drug therapy; Translations: [OTH FIGURE MODEL CURRENT DRUG THERAPY] Onset: 02-05-2022 Episodic Other aftercare (4 sources) Encounter for orthopedic aftercare following surgical amputation; Translations: [ENC ORTHOPED AFTERCARE FLW SURG AMP] Onset: 02-05-2022 Episodic Other aftercare (4 sources) MCC (current) use of antibiotics; Translations: [USP CURRENT USE ANTIBIOTICS] Onset: 12-20-2021 Episodic Other aftercare (1 source) terminal clerk (current) use of aspirin; Translations: [FIGURE MODEL CURRENT USE OF ASPIRIN] Onset: 01-19-2022 Episodic [...] Range Facility Office Visiton 05-19-2023 Follow-up visit [id number] Alex Almonte 1945 M Date Provider Department Center 05/19/2023 Marlene-CAITY IBRAHIM CARD [facility] Family History Problem Relation Age of Onset Cancer Mother Aneurysm Father Cancer Father Parkinsonism Father Family Status - Relation Status Age at Mother Father Level of Service:97046 [place] OFFICE/OUTPATIENT ESTABLISHED LOW MDM 20 MIN Reason for Visit and Comments: Follow-up [446922] - 6 month follow up Normal [facility] HbA1c (Bld) [Mass fraction]o n 03-18-2023 Interpretation and review of laboratory results Normal [facility] Eventtus POCT glycosylated hemoglobin (Hb A1C) docked deviceon 03-18-2023 HbA1c (Bld) [Mass fraction] 7.8 % [facility] CNPRosalie 12-25-2022 CNPN Telephone (TXCTGL) ALEX ALMONTE ([id number]) 1945 M Date Time Provider Department 12/25/22 KIDNEY TXP COORDINATORS TXCTGL During your visit today, we recorded the following information about you: Duane Ryan 12/25/2022 10:41 AM Signed Labs 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 Magic Cup Tensas with lunch aspirin, enteric coated (ASPIRIN, ENTERIC [...] Marullo, Mary Hernandez, can you contact MR Almonte and have him lower his tacrolimus (prograf) dose to 1 mg in am and 1 mg in pm from current 2mg in am? thanks! RF Pts RN at [facility] reports pts sister picks up [...] Apply 0. (more content not included)... Normal [facility] Office Visiton 09-09-2022 Follow-up visit [id number] Alex Almonte Kate 1945 M Date Provider Department Center 09/09/2022 1596-SARTHAK PARNELL CARD [facility] Family History Problem Relation Age of Onset Cancer Mother Aneurysm Father Cancer Father Parkinsonism Father Family Status - Relation Status Age at Mother Father Level of Service:86021 [place] OFFICE/OUTPATIENT ESTABLISHED MOD MDM 30-39 MIN Normal [facility] Glucose Poct Glucometerson 0 07-20-2022 Commemt1 Glu2: Cleaned Meter Normal [facility] Comment on above: Result Comment: PERF ORMED BY: [facility] [address] [address] PATHOLOGIST FORENSIC STRUCTURAL ENGINEER JOSE F ELLIOTT M.D. Performed By: #### G MADY #### Point of Care testing , Glucose [Mass/Vol] 176 mg/dL Normal [facility] Comment on above: Result Comment: [facility] [...] (FK506), Blood 10.9 ng/mL Normal 2.0-20.0 [facility] Comment on above: Result Comment: Trou gh (immediately following transplant) 15.0 . Trough (steady state, 2 weeks or more after transplant): 3.0 - 8.0 . Performed by LC-MS/MS technology. Performed By: #### F K506T ####[facility] Huwacqlaja[address] [place], [place] [address]Dr. Farhat Leal CBC AUTO DIFFon 07-10-2022 BASO # 0.0 103/ul Normal 0.0-0.1 [facility] Comment on above: Performed By: #### C BC ####[facility] Esu[address] [place], [place] [address]Dr. Farhat Leal Basophils/100 WBC (Bld) 0.5 % Normal 0.2-2.0 [facility] Comment on above: Performed By: #### C BC ####[facility] Qwxsayigpy[address] [place], [place] [address]Dr. Farhat Leal EO # 0.3 103/ul Normal 0.0-0.7 [facility] Comment on above: Performed By: #### C BC ####[facility] Glsshmcvgf087[address] [place], [place] [address]Dr. Farhat Leal Eosinophils/100 WBC (Bld) 4.9 % Normal 0.9-7.0 [facility] Comment on above: Performed By: #### C BC ####[facility] Rzlsdofewu[address] [place], [place] [address]DrSkylar Leal Erythrocyte distribution width (RBC) [Ratio] 13.8 % Normal 11.0-15.0 [facility] Comment on above: Performed By: #### C BC ####[facility] [address] [place] [address]Dr. Farhat Leal Hematocrit (Bld) [Volume fraction] 36.6 % Critically low 42.0-54.0 [facility] Comment on above: Performed By: #### C BC ####[facility] Ffertiyvoz[address] [place], [place] [address]DrSkylar Leal Hemoglobin (Bld) [Mass/Vol] 12.2 g/dL Critically low 14.0-18.0 [facility] Comment on above: Performed By: #### C BC ####[facility] Ncdxrqnuyz[address] [place], [place] [address]Dr. Farhat Leal IG # 0.01 10e3/ul Normal 0.00-0.03 [facility] Comment on above: Performed By: #### C BC ####[facility] Ztfzjchvel[address] [place], [place] [address]Dr. Farhat Leal IG % 0.2 % Normal 0.0-0.5 [facility] Comment on above: Performed By: #### C BC ####[facility] Atfkxskmee[address] [place], [place] [address]DrSkylar Leal LYMPH # 2.2 103/ul Normal 1.2-3.8 [facility] Comment on above: Performed By: #### C BC ####[facility] Wpxkmkzdcc84[address] [place], [place] [address]DrSkylar Leal Lymphocytes/100 WBC (Bld) 33.9 % Normal 20.5-60.0 [facility] Comment on above: Performed By: #### C BC ####[facility] Seazcigkjv[address] [place], [place] [address]DrSkylar Leal MANUAL DIFF REQ NO Normal [facility] Comment on above: Performed By: #### C BC ####[facility] Cawjw[address]evsk[address] [place], [place] [address]DrSkylar Leal MCH (RBC) [Entitic mass] 31.0 pg Normal 25.9-34.0 [facility] Comment on above: Performed By: #### C BC ####[facility] Imxiudltku3[address] [place] [address]DrSkylar Leal MCHC (RBC) [Mass/Vol] 33.3 g/dL Normal 29.9-35.2 [facility] Comment on above: Performed By: #### C BC ####[facility] Ginahixqmb[address] [place], [place] [address]DrSkylar Leal MCV (RBC) [Entitic vol] 93.1 fL Normal 80.0-94.0 [facility] Comment on above: Performed By: #### C BC ####[facility] Ktcjertbts154[address] [place], [place] [address]DrSkylar Leal MONO # 0.7 103/ul Normal 0.3-0.8 [facility] Comment on above: Performed By: #### C BC ####[facility] Ycuqwiygni[address] [place], [place] [address]DrSkylar Leal Monocytes/100 WBC (Bld) 10.8 % Normal 1.7-12.0 [facility] Comment on above: Performed By: #### C BC ####[facility] Vbzlnxmffm[address] [place], [place] [address]DrSkylar Leal NEUT # 3.2 103/ul Normal 1.4-6.5 [facility] Comment on above: Performed By: #### C BC ####[facility] Lmyetyqxcd[address] [place], [place] [address]DrSkylar Leal Neutrophils/100 WBC (Bld) 49.7 % Normal 43.0-75.0 [facility] Comment on above: Performed By: #### C BC ####[facility] Bdcbcvdqlb64[address] [place], [place] [address]DrSkylar Leal Platelet mean volume (Bld) [Entitic vol] 10.9 fL Normal 9.5-13.5 [facility] Comment on above: Performed By: #### C BC ####[facility] Hdljxjjury[address] [place], [place] [address]DrSkylar Leal PLT 195 103/ul Normal 150-450 [facility] Comment on above: Performed By: #### C BC ####[facility] Ngpxkfgwdv2524 [place] [id number]. Farhat Leal RBC 3.93 106/ul Critically low 4.70-6.10 [facility] Comment on above: Performed By: #### C BC ####[facility] Apnrqkfpui7256 [place] [id number]. Farhat Leal WBC 6.4 103/ul Normal 4.0-11.0 [facility] Comment on above: Performed By: #### C BC ####[facility] Yjxjaukjnc[address] [place] [address]Dr. Farhat Leal MAGNESIUMon 07-10-2022 Magnesium [Mass/Vol] 1.9 mg/dL Normal 1.8-2.4 [facility] Comment on above: Performed By: #### HENRI Winters ####[facility] Bkxemallew[address] [place], [place] [address]Dr. Farhat Leal PHOSPHORUSon 07-10-2022 Phosphate [Mass/Vol] 4.7 mg/dL Normal 2.6-4.7 [facility] Comment on above: Performed By: #### HENRI Winters ####[facility] [address] [place] [address]Dr. Farhat Leal PROF 14(COMP METB)on 023 Albumin [Mass/Vol] 2.7 g/dL Critically low 3.4-5.0 [facility] Comment on above: Performed By: #### C MP ####[facility] Xq[address]ce[address]ie[address] [place] [id number]. Farhat Leal Albumin/Globulin [Mass ratio] 0.8 {ratio} Normal [facility] Comment on above: Performed By: #### C MP ####[facility] Qwoxfsyoyi6[address] [place] [id number]. Farhat Leal ALP [Catalytic activity/Vol] 59 U/L Normal 46-116 [facility] Comment on above: Performed By: #### C MP ####[facility] Ycltfipjju2763 [place] [id number]. Farhat Leal ALT [Catalytic activity/Vol] 16 U/L Normal 16-63 [facility] Comment on above: Performed By: #### C MP ####[facility] Kkt[address]irbejw[address] [place] [address]Dr. Farhat Leal Anion gap [Moles/Vol] 12.3 mmol/L Normal [facility] Comment on above: Performed By: #### C MP ####[facility] [address]zsstcu[address] [place] [address]Dr. Farhat Leal AST [Catalytic activity/Vol] 17 U/L Normal 15-37 [facility] Comment on above: Performed By: #### C MP ####[facility] Mbxuljoiuo[address]99 [place] [address]Dr. Farhat Leal Bilirubin [Mass/Vol] 0.5 mg/dL Normal 0.2-1.0 [facility] Comment on above: Performed By: #### C MP ####[facility] Auvlpfviof[address] [place], [place] [address]Dr. Farhat Leal Calcium [Mass/Vol] 8.5 mg/dL Normal 8.5-10.[address] [facility] Comment on above: Performed By: #### C MP ####[facility] Gkkyentfky[address] [place], [place] [address]Dr. Farhat Leal Chloride [Moles/Vol] 104 mmol/L Normal 98-107 [facility] Comment on above: Performed By: #### C MP ####[facility] Dwcqqnqzsq7003 [place] [address]Dr. Farhat Leal CO2 [Moles/Vol] 27.6 mmol/L Normal 21.0-32.0 [facility] Comment on above: Performed By: #### C MP ####[facility] Rzwdgkusso[address] [place], [place] [address]Dr. Farhat Leal Creatinine [Mass/Vol] 1.79 mg/dL Critically high 0.70-1.30 [facility] Comment on above: Performed By: #### C MP ####[facility] Gzg[address]puigb[address]72 [place], [place] [address]Tf. Faraht Leal EGFR-AF GRE[place]DIAN 45 mL/min/1.73m2 Critically low >=60 [facility] Comment on above: Performed By: #### C MP ####[facility] W[address]ax[address]aj35[address] [place] [id number]. Farhat Leal EGFR-NON AF GRENADIAN 37 mL/min/1.73m2 Critically low >=60 [facility] Comment on above: Performed By: #### C MP ####[facility] Golglqcvyp[address]199 [place] [id number]. Farhat Leal Globulin (S) [Mass/Vol] 3.2 g/dL Normal [facility] Comment on above: Performed By: #### C MP ####[facility] J[address]rgruwqr[address] [place] [id number]. Farhat Leal Glucose [Mass/Vol] 203 mg/dL Critically high 74-106 [facility] Comment on above: Performed By: #### C MP ####[facility] Qcpprknhls2219 [place] [id number]. Farhat Leal Potassium [Moles/Vol] 3.9 mmol/L Normal 3.5-5.1 [facility] Comment on above: Performed By: #### C MP ####[facility] Iqmcveoofh1387 [place] [id number]. Farhat Leal Protein [Mass/Vol] 5.9 g/dL Critically low 6.4-8.2 [facility] Comment on above: Performed By: #### C MP ####[facility] Fjsgwddofh9971 [place] [id number]. Farhat Leal Sodium [Moles/Vol] 140 mmol/L Normal 136-[address] [facility] Comment on above: Performed By: #### C MP ####[facility] Szszpalkkd5131 [place] [id number]. Farhat Leal Urea nitrogen [Mass/Vol] 61.0 mg/dL Critically high 7.0-18.0 [facility] Comment on above: Performed By: #### C MP ####[facility] Dbxctqvscz4853 [place] [address]Dr. Farhat Leal Urea nitrogen/Creatinine [Mass ratio] 34.1 mg/mg Normal [facility] Comment on above: Performed By: #### C MP ####[facility] Qixfoetmhq[address] [place], [place] [address]DrSkylar Leal PROTIMEon 07-10-2022 INR Coag (PPP) [Relative time] 2.95 {INR} Normal [facility] Comment on above: Performed By: #### P T ####[facility] Cdfveweyxo[address] [place], [place] [address]Dr. Farhat Leal INR GUIDELINES SEE BELOW Normal [facility] Comment on above: Result Comment: MALINA RED INR: 2.0 - 3.0 CONDITIONS NOT LISTED BELOW 2.5 - 3.5 FOR PROSTHETIC HEART VALVE REPLACEMENT 2.5 - 3.5 RECURRENT THROMBOSIS Performed By: #### P T ####[facility] Benodktfdu[address] [place], [place] [address]DrSkylar Leal PT Coag (PPP) [Time] 29.4 s Critically high 9.0-11.6 [facility] Comment on above: Performed By: #### P T ####[facility] Autyzzqteh[address] [place], [place] [address]DrSkylar Leal FK506 (TACROLIMUS) WHOLE BLO ODon 07-07-2022 Tacrolimus (FK506), Blood 8.3 ng/mL Normal 2.0-20.0 [facility] Comment on above: Result Comment: Trou gh (immediately following transplant) 15.0 . Trough (steady state, 2 weeks or more after transplant): 3.0 - 8.0 . Performed by LC-MS/MS technology. Performed By: #### F K506T ####[facility] Vbzayzcdum[address] [place], [place] [address]DrSkylar Leal CBC AUTO DIFFon 07-03-2022 BASO # 0.0 103/ul Normal 0.0-0.1 [facility] Comment on above: Performed By: #### C BC ####[facility] Crjcetasvz[address] [place], [place] [address]DrSkylar Lela Basophils/100 WBC (Bld) 0.6 % Normal 0.2-2.0 [facility] Comment on above: Performed By: #### C BC ####[facility] Yyahtfepji[address] [place], [place] [address]Dr. Farhat Leal EO # 0.3 103/ul Normal 0.0-0.7 [facility] Comment on above: Performed By: #### C BC ####[facility] Immntxxwsl[address] [place], [place] [address]Dr. Farhat Leal Eosinophils/100 WBC (Bld) 4.1 % Normal 0.9-7.0 [facility] Comment on above: Performed By: #### C BC ####[facility] Rwkisygxkk7[address] [place], [place] [address]Dr. Farhat Leal Erythrocyte distribution width (RBC) [Ratio] 14.0 % Normal 11.0-15.0 [facility] Comment on above: Performed By: #### C BC ####[facility] Oigngmrsjb63[address] [place], [place] [address]Dr. Farhat Leal Hematocrit (Bld) [Volume fraction] 35.9 % Critically low 42.0-54.0 [facility] Comment on above: Performed By: #### C BC ####[facility] Fpoxynbdul[address] [place], [place] [address]Dr. Farhat Leal Hemoglobin (Bld) [Mass/Vol] 12.0 g/dL Critically low 14.0-18.0 [facility] Comment on above: Performed By: #### C BC ####[facility] Mrokpbigzl[address] [place], [place] [address]Dr. Farhat Leal IG # 0.04 10e3/ul Critically high 0.00-0.[address] [facility] Comment on above: Performed By: #### C BC ####[facility] Tlbmunhtkd[address] [place], [place] [address]Dr. Farhat Leal IG % 0.6 % Critically high 0.0-0.5 [facility] Comment on above: Performed By: #### C BC ####[facility] Mgbdxxjjsy[address] [place], [place] [address]Dr. Farhat Leal LYMPH # 1.5 103/ul Normal 1.2-3.8 [facility] Comment on above: Performed By: #### C BC ####[facility] Qvnkmpsakr7154 [place] [id number]. Farhat Leal Lymphocytes/100 WBC (Bld) 21.5 % Normal 20.5-60.0 [facility] Comment on above: Performed By: #### C BC ####[facility] Ggxcovkkok[address] [place] [address]Dr. Farhat Leal MANUAL DIFF REQ NO Normal [facility] Comment on above: Performed By: #### C BC ####[facility] [address]smjvddj[address] [place] [address]Dr. Faraht Leal MCH (RBC) [Entitic mass] 30.8 pg Normal 25.9-34.0 [facility] Comment on above: Performed By: #### C BC ####[facility] Xeyrimmtoo[address] [place] [address]Dr. Farhat Leal MCHC (RBC) [Mass/Vol] 33.4 g/dL Normal 29.9-35.2 [facility] Comment on above: Performed By: #### C BC ####[facility] Uhvidcmwcl8731 [place] [address]Dr. Farhat Leal MCV (RBC) [Entitic vol] 92.1 fL Normal 80.0-94.0 [facility] Comment on above: Performed By: #### C BC ####[facility] I[address]jmqmxya9166 [place] [address]Dr. Farhat Leal MONO # 0.6 103/ul Normal 0.3-0.8 [facility] Comment on above: Performed By: #### C BC ####[facility] Qvgxqwhbdt1130 [place] [address]Dr. Farhat Leal Monocytes/100 WBC (Bld) 8.7 % Normal 1.7-12.0 [facility] Comment on above: Performed By: #### C BC ####[facility] Xmsdsrjeib8374 [place] [address]Dr. Farhat Leal NEUT # 4.4 103/ul Normal 1.4-6.5 [facility] Comment on above: Performed By: #### C BC ####[facility] Uuekymljof0639 [place] [address]Dr. Farhat Leal Neutrophils/100 WBC (Bld) 64.5 % Normal 43.0-75.0 [facility] Comment on above: Performed By: #### C BC ####[facility] Rhtziczqsf5542 [place] [address]Dr. Farhat Leal Platelet mean volume (Bld) [Entitic vol] 10.1 fL Normal 9.5-13.5 [facility] Comment on above: Performed By: #### C BC ####[facility] Bhmlskjrre[address] [place] [address]Dr. Farhat Elvis PLT 177 103/ul Normal 150-450 [facility] Comment on above: Performed By: #### C BC ####[facility] Rqhzhqhbjx8282 [place] [address]Dr. Farhat Elvis RBC 3.90 106/ul Critically low 4.70-6.10 [facility] Comment on above: Performed By: #### C BC ####[facility] [address]zktqpcds[address] [place], [place] [address]Dr. Farhat Elvis WBC 6.8 103/ul Normal 4.0-11.0 [facility] Comment on above: Performed By: #### C BC ####[facility] Govnmzzusx[address] [place], [place] [address]DrSkylar Leal PROF 14(COMP METB)on 023 Albumin [Mass/Vol] 2.8 g/dL Critically low 3.4-5.0 [facility] Comment on above: Performed By: #### C MP ####[facility] Vlxwltyltg23[address] [place], [place] [address]Dr. Madelynlorri Elvis Albumin/Globulin [Mass ratio] 0.8 {ratio} Normal [facility] Comment on above: Performed By: #### C MP ####[facility] Ixfttmyqfl[address] [place], [place] [address]Dr. Farhat Leal ALP [Catalytic activity/Vol] 68 U/L Normal 46-116 [facility] Comment on above: Performed By: #### C MP ####[facility] Hpzxosztig5[address] [place] [address]Dr. Farhat Lela ALT [Catalytic activity/Vol] 20 U/L Normal 16-63 [facility] Comment on above: Performed By: #### C MP ####[facility] Tdgfzcbsed0149 [place] [address]Dr. Farhat Leal Anion gap [Moles/Vol] 11.1 mmol/L Normal Th [facility] Comment on above: Performed By: #### C MP ####[facility] Avwbzzuyhe[address] [place], [place] [address]Dr. Farhat Elal AST [Catalytic activity/Vol] 22 U/L Normal 15-37 [facility] Comment on above: Performed By: #### C MP ####[facility] Efdwpwglcc[address] [place], [place] [address]Dr. Farhat Elvis Bilirubin [Mass/Vol] 0.4 mg/dL Normal 0.2-1.0 [facility] Comment on above: Performed By: #### C MP ####[facility] Puqtlpvalw[address] [place], [place] [address]Dr. Farhat Elvis Calcium [Mass/Vol] 8.5 mg/dL Normal 8.5-10.[address] [facility] Comment on above: Performed By: #### C MP ####[facility] C[address]afobqt[address] [place] [address]Dr. Farhat Elvis Chloride [Moles/Vol] 106 mmol/L Normal 98-107 [facility] [facility] Comment on above: Performed By: #### C MP ####[facility] Hhgoaaigfl1993 [place] [address]Dr. Farhat Elvis CO2 [Moles/Vol] 29.1 mmol/L Normal 21.0-32.0 [facility] Comment on above: Performed By: #### C MP ####[facility] Pdmfjqkhtj6108 [place] [address]DrSkylar Leal Creatinine [Mass/Vol] 1.70 mg/dL Critically high 0.70-1.30 [facility] Comment on above: Performed By: #### C MP ####[facility] Hknqqkzrke9400 [place] [address]Dr. Farhat Elvis EGFR-AF GRENADIAN 48 mL/min/1.73m2 Critically low >=60 [facility] Comment on above: Performed By: #### C MP ####[facility] Jwazaujnlp7854 [place] [address]Dr. Farhat Leal EGFR-NON AF GRENADIAN 39 mL/min/1.73m2 Critically low >=60 [facility] Comment on above: Performed By: #### C MP ####[facility] Ndcelqcwos794[address] [place], [place] [address]Dr. Farhat Leal Globulin (S) [Mass/Vol] 3.6 g/dL Normal [facility] Comment on above: Performed By: #### C MP ####[facility] Whfieyjzqc240[address] [place], [place] [address]Dr. Farhat Leal Glucose [Mass/Vol] 312 mg/dL Critically high 74-106 [facility] Comment on above: Performed By: #### C MP ####[facility] Pdybekpekv297[address] [place], [place] [address]Dr. Farhat Leal Potassium [Moles/Vol] 4.2 mmol/L Normal 3.5-5.1 [facility] Comment on above: Performed By: #### C MP ####[facility] Yjnccfffit1442 [place] [address]Dr. Farhat Leal Protein [Mass/Vol] 6.4 g/dL Normal 6.4-8.2 [facility] Comment on above: Performed By: #### C MP ####[facility] Juuqogulhk960[address] [place], [place] [address]Dr. Farhat Leal Sodium [Moles/Vol] 142 mmol/L Normal 136-[address] [facility] Comment on above: Performed By: #### C MP ####[facility] Zjbgaudrmo299[address] [place], [place] [address]Dr. Farhat Leal Urea nitrogen [Mass/Vol] 49.0 mg/dL Critically high 7.0-18.0 [facility] Comment on above: Performed By: #### C MP ####[facility] Wyewgzexbo2949 [place] [address]DrSkylar Leal Urea nitrogen/Creatinine [Mass ratio] 28.8 mg/mg Normal [facility] Comment on above: Performed By: #### C MP ####[facility] Evuaebbodh703[address] [place], [place] [address]DrSkylar Leal PROTIMEon 07-03-2022 INR Coag (PPP) [Relative time] 2.23 {INR} Normal [facility] Comment on above: Performed By: #### P T ####[facility] Uazzojvqoh087[address] [place], [place] [address]DrSkylar Leal INR GUIDELINES SEE BELOW Normal [facility] Comment on above: Result Comment: MALINA RED INR: 2.0 - 3.0 CONDITIONS NOT LISTED BELOW 2.5 - 3.5 FOR PROSTHETIC HEART VALVE REPLACEMENT 2.5 - 3.5 RECURRENT THROMBOSIS Performed By: #### P T ####[facility] Onzzaggash[address] [place], [place] [address]DrSkylar Leal PT Coag (PPP) [Time] 22.6 s Critically high 9.0-11.6 [facility] Comment on above: Performed By: #### P T ####[facility] Gujqturluh433[address] [place], [place] [address]DrSkylar Leal FK506 (TACROLIMUS) WHOLE BLO ODon 06-29-2022 Tacrolimus (FK506), Blood 12.2 ng/mL Normal 2.0-20.0 [facility] Comment on above: Result Comment: Trou gh (immediately following transplant) 15.0 . Trough (steady state, 2 weeks or more after transplant): 3.0 - 8.0 . Performed by LC-MS/MS technology. Performed By: #### F K506T ####[facility] Teymgxdfpy911[address] [place], [place] [address]DrSkylar Leal CBC AUTO DIFFon 06-26-2022 BASO # 0.0 103/ul Normal 0.0-0.1 [facility] Comment on above: Performed By: #### C BC ####[facility] Lfidccitpt0199 [place] [address]Dr. Farhat Leal Basophils/100 WBC (Bld) 0.5 % Normal 0.2-2.0 [facility] Comment on above: Performed By: #### C BC ####[facility] Wzqqsslzkf65[address] [place], [place] [address]Dr. Farhat Leal EO # 0.3 103/ul Normal 0.0-0.7 [facility] Comment on above: Performed By: #### C BC ####[facility] Lzlffsvdhd219[address] [place], [place] [address]Dr. Farhat Leal Eosinophils/100 WBC (Bld) 4.3 % Normal 0.9-7.0 [facility] Comment on above: Performed By: #### C BC ####[facility] Bdesealymv4313[address] [place], [place] [address]Dr. Farhat Leal Erythrocyte distribution width (RBC) [Ratio] 14.1 % Normal 11.0-15.0 [facility] Comment on above: Performed By: #### C BC ####[facility] Vlmuxcjppr2638[address] [place], [place] [address]Dr. Farhat Leal Hematocrit (Bld) [Volume fraction] 35.4 % Critically low 42.0-54.0 [facility] Comment on above: Performed By: #### C BC ####[facility] Tcjbwfcjpv913[address] [place], [place] [address]Dr. Farhat Leal Hemoglobin (Bld) [Mass/Vol] 11.8 g/dL Critically low 14.0-18.0 [facility] Comment on above: Performed By: #### C BC ####[facility] Dovlrixcik9112[address] [place], [place] [address]Dr. Farhat Leal IG # 0.02 10e3/ul Normal 0.00-0.03 [facility] Comment on above: Performed By: #### C BC ####[facility] Yuqmaqngic5427[address] [place], [place] [address]Dr. Farhat Leal IG % 0.3 % Normal 0.0-0.5 [facility] Comment on above: Performed By: #### C BC ####[facility] Ncrxdxwjwk2055 [place] [address]Dr. Madelynlorri Elvis LYMPH # 2.4 103/ul Normal 1.2-3.8 [facility] Comment on above: Performed By: #### C BC ####[facility] Imsdplummv3572 [place] [address]Dr. Farhat Leal Lymphocytes/100 WBC (Bld) 40.4 % Normal 20.5-60.0 [facility] Comment on above: Performed By: #### C BC ####[facility] Jniywogrlj8556 [place] [address]DrSkylar Leal MANUAL DIFF REQ NO Normal [facility] Comment on above: Performed By: #### C BC ####[facility] Vtzrtgrrws6629[address] [place], [place] [address]Dr. Farhat Leal MCH (RBC) [Entitic mass] 31.0 pg Normal 25.9-34.0 [facility] Comment on above: Performed By: #### C BC ####[facility] Hwottfzbox9689 [place] [address]Dr. Farhat Leal MCHC (RBC) [Mass/Vol] 33.3 g/dL Normal 29.9-35.2 [facility] Comment on above: Performed By: #### C BC ####[facility] Yjzlxgbgtj4680 [place] [address]Dr. Farhat Leal MCV (RBC) [Entitic vol] 92.9 fL Normal 80.0-94.0 [facility] Comment on above: Performed By: #### C BC ####[facility] Piaeuvxbnl133[address] [place], [place] [address]DrSkylar Leal MONO # 0.7 103/ul Normal 0.3-0.8 [facility] Comment on above: Performed By: #### C BC ####[facility] Zehharhhsi1383 [place] [id number]. Farhat Leal Monocytes/100 WBC (Bld) 11.1 % Normal 1.7-12.0 [facility] Comment on above: Performed By: #### C BC ####[facility] Mowgntctnv9143 [place] [address]Dr. Farhat Leal NEUT # 2.6 103/ul Normal 1.4-6.5 [facility] Comment on above: Performed By: #### C BC ####[facility] Cimivnuosn0032 [place] [id number] Leal Neutrophils/100 WBC (Bld) 43.4 % Normal 43.0-75.0 [facility] Comment on above: Performed By: #### C BC ####[facility] Irignjnrmx0247 [place] [address]Dr. Farhat Leal Platelet mean volume (Bld) [Entitic vol] 10.4 fL Normal 9.5-13.5 [facility] Comment on above: Performed By: #### C BC ####[facility] Hcczqolath0840 [place] [address]Dr. Farhat Leal PLT 211 103/ul Normal 150-450 [facility] Comment on above: Performed By: #### C BC ####[facility] Hoiqiztfty[address] [place], [place] [id number]. Farhat Leal RBC 3.81 106/ul Critically low 4.70-6.10 [facility] Comment on above: Performed By: #### C BC ####[facility] Vvujsibuku5921 [place] [id number]. Farhat Leal WBC 6.0 103/ul Normal 4.0-11.0 [facility] Comment on above: Performed By: #### C BC ####[facility] Fkipnoacbd1626 [place] [id number] Leal PROF 14(COMP METB)on 023 Albumin [Mass/Vol] 2.6 g/dL Critically low 3.4-5.0 [facility] Comment on above: Performed By: #### C MP ####[facility] Tvxsjvnruh1427 [place] [address]DrSkylar Leal Albumin/Globulin [Mass ratio] 0.8 {ratio} Normal [facility] Comment on above: Performed By: #### C MP ####[facility] Heskvvuook3943 [place] [address]Dr. Farhat Elvis ALP [Catalytic activity/Vol] 64 U/L Normal 46-116 [facility] Comment on above: Performed By: #### C MP ####[facility] Ncscuiwtrj4718 [place] [address]Dr. Farhat Elvis ALT [Catalytic activity/Vol] 18 U/L Normal 16-63 [facility] Comment on above: Performed By: #### C MP ####[facility] Xbwvecjekv74[address] [place], [place] [address]Dr. Farhat Leal Anion gap [Moles/Vol] 10.2 mmol/L Normal [facility] Comment on above: Performed By: #### C MP ####[facility] Wrskqbtaqm427[address] [place], [place] [address]Dr. Farhat Leal AST [Catalytic activity/Vol] 16 U/L Normal 15-37 [facility] Comment on above: Performed By: #### C MP ####[facility] Nzevzdlkli75[address] [place], [place] [address]Dr. Farhat Leal Bilirubin [Mass/Vol] 0.6 mg/dL Normal 0.2-1.0 [facility] Comment on above: Performed By: #### C MP ####[facility] Hwomnwnsej837[address] [place], [place] [address]Dr. Farhat Leal Calcium [Mass/Vol] 8.5 mg/dL Normal 8.5-10.[address] [facility] Comment on above: Performed By: #### C MP ####[facility] Hrexkhhcxq4[address] [place], [place] [address]Dr. Farhat Leal Chloride [Moles/Vol] 106 mmol/L Normal 98-107 [facility] Comment on above: Performed By: #### C MP ####[facility] Vkgedxdokd804[address] [place], [place] [address]Dr. Farhat Leal CO2 [Moles/Vol] 29.8 mmol/L Normal 21.0-32.0 [facility] Comment on above: Performed By: #### C MP ####[facility] Rubfojpjsq0640 [place] [id number]. Farhat Leal Creatinine [Mass/Vol] 1.60 mg/dL Critically high 0.70-1.30 [facility] Comment on above: Performed By: #### C MP ####[facility] Dujddhjziu4660 [place] [id number]. Farhat Leal EGFR-AF GRENADIAN 51 mL/min/1.73m2 Critically low >=60 [facility] Comment on above: Performed By: #### C MP ####[facility] Kjugnjnree8004 [place] [id number]. Farhat Leal EGFR-NON AF GRENADIAN 42 mL/min/1.73m2 Critically low >=60 [facility] Comment on above: Performed By: #### C MP ####[facility] Mgdpayetzj3054 [place] [phone]. Farhat Elvis Globulin (S) [Mass/Vol] 3.4 g/dL Normal [facility] Comment on above: Performed By: #### C MP ####[facility] Fepyjdcjnj2839 [place] [phone]. Farhat Leal Glucose [Mass/Vol] 178 mg/dL Critically high 74-106 [facility] Comment on above: Performed By: #### C MP ####[facility] Gkoxaarbzq6785 [place] [phone]. Farhat Elvis Potassium [Moles/Vol] 4.0 mmol/L Normal 3.5-5.1 [facility] Comment on above: Performed By: #### C MP ####[facility] Mefosuxhkf0596 [place], [place] [address]Jq. Farhat Leal Protein [Mass/Vol] 6.0 g/dL Critically low 6.4-8.2 [facility] Comment on above: Performed By: #### C MP ####[facility] Sgmoflgklc6282 [place] [phone]. Farhat Leal Sodium [Moles/Vol] 142 mmol/L Normal 136-[address] [facility] Comment on above: Performed By: #### C MP ####[facility] Yirsloaavm3052 [place] [address]Dr. Farhat Leal Urea nitrogen [Mass/Vol] 49.0 mg/dL Critically high 7.0-18.0 [facility] Comment on above: Performed By: #### C MP ####[facility] Mxishrzduo8184 [place] [address]Dr. Farhat Leal Urea nitrogen/Creatinine [Mass ratio] 30.6 mg/mg Normal [facility] Comment on above: Performed By: #### C MP ####[facility] Fttsitwdri1926 [place] [address]Dr. Farhat Leal PROTIMEon 06-26-2022 INR Coag (PPP) [Relative time] 1.77 {INR} Normal [facility] Comment on above: Performed By: #### P T ####[facility] Jyrvcnbcsd816[address] [place], [place] [address]Dr. Farhat Leal INR GUIDELINES SEE BELOW Normal [facility] Comment on above: Result Comment: MALINA RED INR: 2.0 - 3.0 CONDITIONS NOT LISTED BELOW 2.5 - 3.5 FOR PROSTHETIC HEART VALVE REPLACEMENT 2.5 - 3.5 RECURRENT THROMBOSIS Performed By: #### P T ####[facility] Wtgbmfhapa86[address] [place], [place] [address]Dr. Farhat Leal PT Coag (PPP) [Time] 18.2 s Critically high 9.0-11.6 [facility] Comment on above: Performed By: #### P T ####[facility] Viyqvllffg996[address] [place], [place] [address]Dr. Farhat Leal FK506 (TACROLIMUS) WHOLE BLO ODon 06-22-2022 Tacrolimus (FK506), Blood 24.5 ng/mL Invalid Interpretation Code 2.0-20.0 [facility] Comment on above: Result Comment: Trou gh (immediately following transplant) 15.0 . Trough (steady state, 2 weeks or more after transplant): 3.0 - 8.0 . Performed by LC-MS/MS technology.Patient drug level exceeds published reference range. Evaluateclinically for signs of potential toxicity. Performed By: #### F K506T ####[facility] Vftpowhoff7516 [place] [address]Dr. Farhat Leal CBC AUTO DIFFon 06-19-2022 BASO # 0.1 103/ul Normal 0.0-0.1 [facility] Comment on above: Performed By: #### C BC ####[facility] Pyyaqsgbsm459[address] [place], [place] [address]Dr. Farhat Leal Basophils/100 WBC (Bld) 0.7 % Normal 0.2-2.0 [facility] Comment on above: Performed By: #### C BC ####[facility] Xclyaoohca723[address] [place], [place] [address]Dr. Madelynlorri Leal EO # 0.4 103/ul Normal 0.0-0.7 [facility] Comment on above: Performed By: #### C BC ####[facility] Rbfyeyytbx436[address] [place], [place] [address]Dr. Madelynlorri Leal Eosinophils/100 WBC (Bld) 5.7 % Normal 0.9-7.0 [facility] Comment on above: Performed By: #### C BC ####[facility] Rpisahhgtb987[address] [place], [place] [address]Dr. Farhat lEvis Erythrocyte distribution width (RBC) [Ratio] 14.5 % Normal 11.0-15.0 [facility] Comment on above: Performed By: #### C BC ####[facility] Ysmtynnozd22[address] [place], [place] [address]Dr. Farhat Leal Hematocrit (Bld) [Volume fraction] 34.1 % Critically low 42.0-54.0 [facility] Comment on above: Performed By: #### C BC ####[facility] Agjydynioi6638[address] [place], [place] [address]Dr. Madelynlorri Leal Hemoglobin (Bld) [Mass/Vol] 11.3 g/dL Critically low 14.0-18.0 [facility] Comment on above: Performed By: #### C BC ####[facility] Bjfslbwidn664[address] [place], [place] [address]Dr. Farhat Leal IG # 0.02 10e3/ul Normal 0.00-0.03 [facility] Comment on above: Performed By: #### C BC ####[facility] Gcfngfgtfp8871 [place] [address]Dr. Farhat Leal IG % 0.3 % Normal 0.0-0.5 [facility] Comment on above: Performed By: #### C BC ####[facility] Gvftvkupnz9280 [place] [address]Dr. Farhat Leal LYMPH # 3.1 103/ul Normal 1.2-3.8 [facility] Comment on above: Performed By: #### C BC ####[facility] Tnkmhlloyb2234 [place] [address]Dr. Farhat Elvis Lymphocytes/100 WBC (Bld) 40.6 % Normal 20.5-60.0 [facility] Comment on above: Performed By: #### C BC ####[facility] Msttxbgjks3154 [place] [address]Dr. Farhat Elvis MANUAL DIFF REQ NO Normal [facility] Comment on above: Performed By: #### C BC ####[facility] Xfkjpanoru1066 [place] [address]Dr. Farhat Leal MCH (RBC) [Entitic mass] 30.6 pg Normal 25.9-34.0 [facility] Comment on above: Performed By: #### C BC ####[facility] Tctyjjpkfa997[address] [place], [place] [address]Dr. Farhat Elvis MCHC (RBC) [Mass/Vol] 33.1 g/dL Normal 29.9-35.2 [facility] Comment on above: Performed By: #### C BC ####[facility] Obkggqmcmp2266 [place] [address]DrSkylar Farhat Elvis MCV (RBC) [Entitic vol] 92.4 fL Normal 80.0-94.0 [facility] Comment on above: Performed By: #### C BC ####[facility] Nxfgdnopye64[address] [place], [place] [address]Dr. Madelynlorri Leal MONO # 0.8 103/ul Normal 0.3-0.8 [facility] Comment on above: Performed By: #### C BC ####[facility] Nrxvokpdjv9539 [place] [address]Dr. Farhat Leal Monocytes/100 WBC (Bld) 10.6 % Normal 1.7-12.0 [facility] Comment on above: Performed By: #### C BC ####[facility] Uvezdffhog6315 [place] [address]Dr. Farhat Leal NEUT # 3.2 103/ul Normal 1.4-6.5 [facility] Comment on above: Performed By: #### C BC ####[facility] Xxygsxcwzz7996 [place] [address]Dr. Farhat Leal Neutrophils/100 WBC (Bld) 42.1 % Critically low 43.0-75.0 [facility] Comment on above: Performed By: #### C BC ####[facility] Epotjefrtg8997 [place] [address]Dr. Farhat Leal Platelet mean volume (Bld) [Entitic vol] 10.6 fL Normal 9.5-13.5 [facility] Comment on above: Performed By: #### C BC ####[facility] Eiponqucfa7854 [place] [address]Dr. Farhat Leal PLT 187 103/ul Normal 150-450 [facility] Comment on above: Performed By: #### C BC ####[facility] Ykplkbblav2040 [place] [address]Dr. Farhat Leal RBC 3.69 106/ul Critically low 4.70-6.10 [facility] Comment on above: Performed By: #### C BC ####[facility] Pweqyhkghn0918 [place] [id number]. Farhat Leal WBC 7.7 103/ul Normal 4.0-11.0 [facility] Comment on above: Performed By: #### C BC ####[facility] Reiitceesk5330 [place] [address]DrSkylar Leal PROF 14(COMP METB)on 023 Albumin [Mass/Vol] 2.5 g/dL Critically low 3.4-5.0 [facility] Comment on above: Performed By: #### C MP ####[facility] Buocfxdplz5160 [place] [address]Dr. Madelynlorri Elvis Albumin/Globulin [Mass ratio] 0.8 {ratio} Normal [facility] Comment on above: Performed By: #### C MP ####[facility] Mzbjbuiifg6110 [place] [address]Dr. Farhat Leal ALP [Catalytic activity/Vol] 60 U/L Normal 46-116 [facility] Comment on above: Performed By: #### C MP ####[facility] Apyyvocxld214[address] [place], [place] [address]Dr. Farhat Leal ALT [Catalytic activity/Vol] 16 U/L Normal 16-63 [facility] Comment on above: Performed By: #### C MP ####[facility] Jkaawctqrn7217[address] [place], [place] [address]Dr. Farhat Leal Anion gap [Moles/Vol] 9.1 mmol/L Normal [facility] Comment on above: Performed By: #### C MP ####[facility] Kztdkaiebu410[address] [place], [place] [address]Dr. Farhat Leal AST [Catalytic activity/Vol] 31 U/L Normal 15-37 [facility] Comment on above: Performed By: #### C MP ####[facility] Oyhwzwsnnv53[address] [place], [place] [address]Dr. Farhat Leal Bilirubin [Mass/Vol] 0.3 mg/dL Normal 0.2-1.0 [facility] Comment on above: Performed By: #### C MP ####[facility] Zfrwrnnhqo60[address] [place], [place] [address]Dr. Farhat Leal Calcium [Mass/Vol] 8.2 mg/dL Critically low 8.5-10.1 [facility] Comment on above: Performed By: #### C MP ####[facility] Spijuxqbqr896[address] [place], [place] [address]Dr. Farhat Leal Chloride [Moles/Vol] 106 mmol/L Normal 98-107 [facility] Comment on above: Performed By: #### C MP ####[facility] Hlnoijqtry7111 [place] [id number]. Farhat Leal CO2 [Moles/Vol] 27.0 mmol/L Normal 21.0-32.0 [facility] Comment on above: Performed By: #### C MP ####[facility] Otghoqvgjz6443 [place] [id number]. Farhat Leal Creatinine [Mass/Vol] 1.51 mg/dL Critically high 0.70-1.30 [facility] Comment on above: Performed By: #### C MP ####[facility] Vmhjsxfiwn8100 [place] [id number]. Farhat Leal EGFR-AF GRENADIAN 55 mL/min/1.73m2 Critically low >=60 [facility] Comment on above: Performed By: #### C MP ####[facility] Hsejqddawn5505 [place] [address]Dr. Farhat Elvis EGFR-NON AF GRENADIAN 45 mL/min/1.73m2 Critically low >=60 [facility] Comment on above: Performed By: #### C MP ####[facility] Hfrrnbnbdi9924 [place] [id number]. Farhat Elvis Globulin (S) [Mass/Vol] 3.2 g/dL Normal [facility] Comment on above: Performed By: #### C MP ####[facility] Wogqajtozt0101 [place] [id number]. Farhat Elvis Glucose [Mass/Vol] 165 mg/dL Critically high 74-106 [facility] Comment on above: Performed By: #### C MP ####[facility] Xhllhafaia3015 [place] [id number]. Farhat Elvis Potassium [Moles/Vol] 4.1 mmol/L Normal 3.5-5.1 [facility] Comment on above: Performed By: #### C MP ####[facility] Ojbngpeywd3944 [place] [id number]. Farhat Elvis Protein [Mass/Vol] 5.7 g/dL Critically low 6.4-8.2 [facility] Comment on above: Performed By: #### C MP ####[facility] Klxjexbvwh6125 [place] [address]Dr. Farhat Leal Sodium [Moles/Vol] 138 mmol/L Normal 136-[address] [facility] Comment on above: Performed By: #### C MP ####[facility] Dzkazaguzb7200 [place] [address]Dr. Farhat Leal Urea nitrogen [Mass/Vol] 51.0 mg/dL Critically high 7.0-18.0 [facility] Comment on above: Performed By: #### C MP ####[facility] Grptjlsdtv[address] [place], [place] [address]Dr. Frahat Leal Urea nitrogen/Creatinine [Mass ratio] 33.8 mg/mg Normal [facility] Comment on above: Performed By: #### C MP ####[facility] Mguavyjzji6623[address] [place], [place] [address]Dr. Farhat Leal FK506 (TACROLIMUS) WHOLE BLO ODon 06-15-2022 Tacrolimus (FK506), Blood 16.4 ng/mL Normal 2.0-20.0 [facility] Comment on above: Result Comment: Trou gh (immediately following transplant) 15.0 . Trough (steady state, 2 weeks or more after transplant): 3.0 - 8.0 . Performed by LC-MS/MS technology. Performed By: #### F K506T ####[facility] Pdetcscpdc869[address] [place], [place] [address]Dr. Farhat Leal PROTIMEon 06-15-2022 INR Coag (PPP) [Relative time] 1.64 {INR} Normal [facility] Comment on above: Performed By: #### P T ####[facility] Bwlzguqsdm55[address] [place], [place] [address]Dr. Farhat Leal INR GUIDELINES SEE BELOW Normal [facility] Comment on above: Result Comment: MALINA RED INR: 2.0 - 3.0 CONDITIONS NOT LISTED BELOW 2.5 - 3.5 FOR PROSTHETIC HEART VALVE REPLACEMENT 2.5 - 3.5 RECURRENT THROMBOSIS Performed By: #### P T ####[facility] Gxzgynahqi64[address] [place], [place] [address]Dr. Farhat Leal PT Coag (PPP) [Time] 16.9 s Critically high 9.0-11.6 [facility] Comment on above: Performed By: #### P T ####[facility] Uqgwsxvnhd596[address] [place], [place] [address]Dr. Farhat Leal CBC AUTO DIFFon 06-12-2022 BASO # 0.0 103/ul Normal 0.0-0.1 [facility] Comment on above: Performed By: #### C BC ####[facility] Xeavbhlrna825[address] [place], [place] [address]Dr. Farhat Leal Basophils/100 WBC (Bld) 0.4 % Normal 0.2-2.0 [facility] Comment on above: Performed By: #### C BC ####[facility] Lonrdqkrrf269[address] [place], [place] [address]Dr. Farhat Leal EO # 0.4 103/ul Normal 0.0-0.7 [facility] Comment on above: Performed By: #### C BC ####[facility] Ftqtflxxvc34[address] [place], [place] [address]Dr. Farhat Leal Eosinophils/100 WBC (Bld) 5.4 % Normal 0.9-7.0 [facility] Comment on above: Performed By: #### C BC ####[facility] [address] [place], [place] [address]Dr. Farhat Leal Erythrocyte distribution width (RBC) [Ratio] 14.7 % Normal 11.0-15.0 [facility] Comment on above: Performed By: #### C BC ####[facility] Xfhajaqmir[address] [place], [place] [address]Dr. Farhat Leal Hematocrit (Bld) [Volume fraction] 34.8 % Critically low 42.0-54.0 [facility] Comment on above: Performed By: #### C BC ####[facility] Nogaeavtcs[address] [place], [place] [address]Dr. Farhat Leal Hemoglobin (Bld) [Mass/Vol] 11.7 g/dL Critically low 14.0-18.0 [facility] Comment on above: Performed By: #### C BC ####[facility] Eixspnxoej20[address] [place] [id number]. Farhat Elvis IG # 0.02 10e3/ul Normal 0.00-0.03 [facility] Comment on above: Performed By: #### C BC ####[facility] Aaopybmxuf3584 [place] [id number]. Farhat Leal IG % 0.3 % Normal 0.0-0.5 [facility] Comment on above: Performed By: #### C BC ####[facility] Suxapvvqwa5505 [place] [id number]. Farhat Leal LYMPH # 2.5 103/ul Normal 1.2-3.8 [facility] Comment on above: Performed By: #### C BC ####[facility] Ljztymwnbo7[address] [place] [address]Dr. Farhat Leal Lymphocytes/100 WBC (Bld) 36.8 % Normal 20.5-60.0 [facility] Comment on above: Performed By: #### C BC ####[facility] Amhlfanwrg6697 [place] [id number]. Farhat Leal MANUAL DIFF REQ NO Normal [facility] Comment on above: Performed By: #### C BC ####[facility] Rsurghicko7885 [place] [id number]. Madelynlorri Leal MCH (RBC) [Entitic mass] 30.9 pg Normal 25.9-34.0 [facility] Comment on above: Performed By: #### C BC ####[facility] Gkibljubxa9018 [place] [id number]. Farhat Elvis MCHC (RBC) [Mass/Vol] 33.6 g/dL Normal 29.9-35.2 [facility] Comment on above: Performed By: #### C BC ####[facility] Htmhsqpowc4709 [place] [id number]. Farhat Leal MCV (RBC) [Entitic vol] 91.8 fL Normal 80.0-94.0 [facility] Comment on above: Performed By: #### C BC ####[facility] Agugsnstbr1536 [place] [id number]. Farhat Leal MONO # 0.8 103/ul Normal 0.3-0.8 [facility] Comment on above: Performed By: #### C BC ####[facility] Wyrhuhxxax7138 [place] [id number]. Farhat Leal Monocytes/100 WBC (Bld) 11.9 % Normal 1.7-12.0 [facility] Comment on above: Performed By: #### C BC ####[facility] Pgzxeujmfz1389 [place] [id number]. Farhat Leal NEUT # 3.1 103/ul Normal 1.4-6.5 [facility] Comment on above: Performed By: #### C BC ####[facility] Sieiozhmij7855 [place] [address]Dr. Farhat Leal Neutrophils/100 WBC (Bld) 45.2 % Normal 43.0-75.0 [facility] Comment on above: Performed By: #### C BC ####[facility] Chkvzjgzyi0816 [place] [id number]. Farhat Leal Platelet mean volume (Bld) [Entitic vol] 10.5 fL Normal 9.5-13.5 [facility] Comment on above: Performed By: #### C BC ####[facility] Tezwynkyuw9647 [place] [id number]. Farhat Leal PLT 175 103/ul Normal 150-450 [facility] Comment on above: Performed By: #### C BC ####[facility] Ceqqzakkhk3393 [place] [id number]. Farhat Leal RBC 3.79 106/ul Critically low 4.70-6.10 [facility] Comment on above: Performed By: #### C BC ####[facility] Zdqdlzlrlv9212 [place] [id number]. Farhat Leal WBC 6.8 103/ul Normal 4.0-11.0 [facility] Comment on above: Performed By: #### C BC ####[facility] Zwswtgctqs2048 [place] [address]Dr. Farhat Leal MAGNESIUMon 06-12-2022 Magnesium [Mass/Vol] 1.6 mg/dL Critically low 1.8-2.4 [facility] Comment on above: Performed By: #### C MP, MG, PHOS ####[facility] Hhxlkkbinj2561 [place] [address]Dr. Farhat Leal PHOSPHORUSon 06-12-2022 Phosphate [Mass/Vol] 3.8 mg/dL Normal 2.6-4.7 [facility] Comment on above: Performed By: #### C MP, MG, PHOS ####[facility] Ibzsjalnrc4925 [place] [address]Dr. Farhat eLal PROF 14(COMP METB)on 023 Albumin [Mass/Vol] 2.6 g/dL Critically low 3.4-5.0 [facility] Comment on above: Performed By: #### C MP, MG, PHOS ####[facility] Zxkvloxojc0434 [place] [address]Dr. Farhat Leal Albumin/Globulin [Mass ratio] 0.8 {ratio} Normal [facility] Comment on above: Performed By: #### C MP, MG, PHOS ####[facility] Tqiiukprgn6504 [place] [address]Dr. Farhat Leal ALP [Catalytic activity/Vol] 64 U/L Normal 46-116 [facility] Comment on above: Performed By: #### C MP, MG, PHOS ####[facility] Mzvxvxuzcq6313 [place] [address]Dr. Farhat Leal ALT [Catalytic activity/Vol] 18 U/L Normal 16-63 [facility] Comment on above: Performed By: #### C MP, MG, PHOS ####[facility] Bljgnkdclj5083 [place] [address]Dr. Farhat Leal Anion gap [Moles/Vol] 12.9 mmol/L Normal [facility] Comment on above: Performed By: #### C MP, MG, PHOS ####[facility] Jjcrihiphh7843 [place] [address]Dr. Farhat Leal AST [Catalytic activity/Vol] 18 U/L Normal 15-37 [facility] Comment on above: Performed By: #### C MP, MG, PHOS ####[facility] Clyrpqvwxt3289 [place] [address]Dr. Farhat Leal Bilirubin [Mass/Vol] 0.4 mg/dL Normal 0.2-1.0 [facility] Comment on above: Performed By: #### C MP, MG, PHOS ####[facility] Ecxwohmtfd7659 [place] [address]Dr. Farhat Leal Calcium [Mass/Vol] 8.7 mg/dL Normal 8.5-10.[address] [facility] Comment on above: Performed By: #### C MP, MG, PHOS ####[facility] Rfaqcimcjl52[address] [place], [place] [address]Dr. Farhat Leal Chloride [Moles/Vol] 105 mmol/L Normal 98-107 [facility] Comment on above: Performed By: #### C MP, MG, PHOS ####[facility] Zhtjtrtmir[address] [place], [place] [address]Dr. Farhat Leal CO2 [Moles/Vol] 27.9 mmol/L Normal 21.0-32.0 [facility] Comment on above: Performed By: #### C MP, MG, PHOS ####[facility] Sfopvobozi0063 [place] [address]Dr. Farhat Leal Creatinine [Mass/Vol] 1.53 mg/dL Critically high 0.70-1.30 [facility] Comment on above: Performed By: #### C MP, MG, PHOS ####[facility] Pmageccqaw1179 [place] [address]Dr. Farhat Leal EGFR-AF GRENADIAN 54 mL/min/1.73m2 Critically low >=60 [facility] Comment on above: Performed By: #### C MP, MG, PHOS ####[facility] Fuegscbtfh7209 [place] [address]Dr. Farhat Leal EGFR-NON AF GRENADIAN 44 mL/min/1.73m2 Critically low >=60 [facility] Comment on above: Performed By: #### C MP, MG, PHOS ####[facility] Igpqonrhll4852 [place] [address]Dr. Farhat Leal Globulin (S) [Mass/Vol] 3.4 g/dL Normal [facility] Comment on above: Performed By: #### C MP, MG, PHOS ####[facility] Gxkurpwpzp6403 [place] [address]Dr. Farhat Leal Glucose [Mass/Vol] 179 mg/dL Critically high 74-106 [facility] Comment on above: Performed By: #### C MP, MG, PHOS ####[facility] Qlauvpajqe8201 [place] [address]Dr. Farhat Leal Potassium [Moles/Vol] 3.8 mmol/L Normal 3.5-5.1 [facility] Comment on above: Performed By: #### C MP, MG, PHOS ####[facility] Wrkfturgrz86[address] [place], [place] [address]Dr. Farhat Leal Protein [Mass/Vol] 6.0 g/dL Critically low 6.4-8.2 [facility] Comment on above: Performed By: #### C MP, MG, PHOS ####[facility] Invbglrsht7753 [place] [address]Dr. Farhat Leal Sodium [Moles/Vol] 142 mmol/L Normal 136-[address] [facility] Comment on above: Performed By: #### C MP, MG, PHOS ####[facility] Onulgdriql0833 [place] [address]Dr. Farhat Leal Urea nitrogen [Mass/Vol] 56.0 mg/dL Critically high 7.0-18.0 [facility] Comment on above: Performed By: #### C MP, MG, PHOS ####[facility] Ivitqqpedl1926 [place] [address]Dr. Farhat Leal Urea nitrogen/Creatinine [Mass ratio] 36.6 mg/mg [facility] Comment on above: Performed By: #### C MP, MG, PHOS ####[facility] Osafnnalum4271 [place] [address]Dr. Farhat Leal FK506 (TACROLIMUS) WHOLE BLO ODon 06-08-2022 Tacrolimus (FK506), Blood 13.2 ng/mL Normal 2.0-20.0 [facility] Comment on above: Result Comment: Trou gh (immediately following transplant) 15.0 . Trough (steady state, 2 weeks or more after transplant): 3.0 - 8.0 . Performed by LC-MS/MS technology. Performed By: #### F K506T ####[facility] Wcaibxepgw[address] [place], [place] [address]Dr. Farhat Leal CBC AUTO DIFFon 06-05-2022 BASO # 0.1 103/ul Normal 0.0-0.1 [facility] Comment on above: Performed By: #### C BC ####[facility] Wamecwqhmb225[address] [place], [place] [address]Dr. Farhat Leal Basophils/100 WBC (Bld) 0.8 % Normal 0.2-2.0 [facility] Comment on above: Performed By: #### C BC ####[facility] Otfbuntltw29[address] [place], [place] [address]Dr. Farhat Leal EO # 0.3 103/ul Normal 0.0-0.7 [facility] Comment on above: Performed By: #### C BC ####[facility] Ceyfvawhmg7[address] [place], [place] [address]Dr. Farhat Leal Eosinophils/100 WBC (Bld) 4.7 % Normal 0.9-7.0 [facility] Comment on above: Performed By: #### C BC ####[facility] Ekgwwzfrka6716[address] [place], [place] [address]Dr. Farhat Leal Erythrocyte distribution width (RBC) [Ratio] 15.1 % Critically high 11.0-15.0 [facility] Comment on above: Performed By: #### C BC ####[facility] Zltdezmuae276[address] [place], [place] [address]Dr. Farhat Leal Hematocrit (Bld) [Volume fraction] 35.5 % Critically low 42.0-54.0 [facility] Comment on above: Performed By: #### C BC ####[facility] Lxpjcjatgk7619 [place] [address]Dr. Farhat Leal Hemoglobin (Bld) [Mass/Vol] 11.7 g/dL Critically low 14.0-18.0 [facility] Comment on above: Performed By: #### C BC ####[facility] Ojupbfrzdb9480 [place] [address]Dr. Madelynlorri Leal IG # 0.01 10e3/ul Normal 0.00-0.03 [facility] Comment on above: Performed By: #### C BC ####[facility] Qzjncmqjwf6316 [place] [address]Dr. Farhat Leal IG % 0.2 % Normal 0.0-0.5 [facility] Comment on above: Performed By: #### C BC ####[facility] Lajdplicox[address] [place], [place] [address]Dr. Farhat Leal LYMPH # 2.1 103/ul Normal 1.2-3.8 [facility] Comment on above: Performed By: #### C BC ####[facility] Qnovaosgcq[address] [place], [place] [address]Dr. Farhat Leal Lymphocytes/100 WBC (Bld) 34.5 % Normal 20.5-60.0 [facility] Comment on above: Performed By: #### C BC ####[facility] Uurknnbvha3410 [place] [address]Dr. Farhat Leal MANUAL DIFF REQ NO Normal [facility] Comment on above: Performed By: #### C BC ####[facility] Uwfkkbqkxb6541 [place] [address]Dr. Farhat Leal MCH (RBC) [Entitic mass] 30.6 pg Normal 25.9-34.0 [facility] Comment on above: Performed By: #### C BC ####[facility] Tyfdalkqtl9358 [place] [address]Dr. Farhat Leal MCHC (RBC) [Mass/Vol] 33.0 g/dL Normal 29.9-35.2 [facility] Comment on above: Performed By: #### C BC ####[facility] Mhczllsxli3682 [place] [id number]. Farhat Leal MCV (RBC) [Entitic vol] 92.9 fL Normal 80.0-94.0 [facility] Comment on above: Performed By: #### C BC ####[facility] Lphjnfrkvr3011 [place] [id number]. Farhat Leal MONO # 0.7 103/ul Normal 0.3-0.8 [facility] Comment on above: Performed By: #### C BC ####[facility] Qwmzjqqlfc6251 [place] [address]Dr. Farhat Leal Monocytes/100 WBC (Bld) 11.4 % Normal 1.7-12.0 [facility] Comment on above: Performed By: #### C BC ####[facility] Adwzauawwb87[address] [place], [place] [address]Dr. Farhat Leal NEUT # 2.9 103/ul Normal 1.4-6.5 [facility] Comment on above: Performed By: #### C BC ####[facility] Vfxfxyuqqf[address] [place], [place] [address]Dr. Farhat Leal Neutrophils/100 WBC (Bld) 48.4 % Normal 43.0-75.0 [facility] Comment on above: Performed By: #### C BC ####[facility] Nomdnafrzt2947 [place] [id number]. Farhat Leal Platelet mean volume (Bld) [Entitic vol] 10.7 fL Normal 9.5-13.5 [facility] Comment on above: Performed By: #### C BC ####[facility] Lxfubtfrij5876 [place] [id number]. Farhat Leal PLT 185 103/ul Normal 150-450 [facility] Comment on above: Performed By: #### C BC ####[facility] Usdvzxxrna1022 [place] [id number]. Farhat Leal RBC 3.82 106/ul Critically low 4.70-6.10 [facility] Comment on above: Performed By: #### C BC ####[facility] Fptbmkcwjh5399 [place] [address]Dr. Madelynlorri Leal WBC 6.0 103/ul Normal 4.0-11.0 [facility] Comment on above: Performed By: #### C BC ####[facility] Wutjfisolh9759 [place] [address]Dr. Farhat Leal MAGNESIUMon 06-05-2022 Magnesium [Mass/Vol] 1.9 mg/dL Normal 1.8-2.4 [facility] Comment on above: Performed By: #### P HOS, MG ####[facility] Tmkrjyzgzf8577 [place] [address]Dr. Farhat Leal PHOSPHORUSon 06-05-2022 Phosphate [Mass/Vol] 4.4 mg/dL Normal 2.6-4.7 [facility] Comment on above: Performed By: #### P HOS, MG ####[facility] Htxgvvjdyn83[address] [place], [place] [address]Dr. Farhat Leal PROTIMEon 06-05-2022 INR Coag (PPP) [Relative time] 2.16 {INR} Normal [facility] Comment on above: Performed By: #### P T ####[facility] Sndmunqajp701[address] [place], [place] [address]Dr. Farhat Leal INR GUIDELINES SEE BELOW Normal [facility] Comment on above: Result Comment: MALINA RED INR: 2.0 - 3.0 CONDITIONS NOT LISTED BELOW 2.5 - 3.5 FOR PROSTHETIC HEART VALVE REPLACEMENT 2.5 - 3.5 RECURRENT THROMBOSIS Performed By: #### P T ####[facility] Xjfvbvbubo7816 [place] [address]Dr. Farhat Leal PT Coag (PPP) [Time] 21.9 s Critically high 9.0-11.6 [facility] Comment on above: Performed By: #### P T ####[facility] Keltyurrfg794[address] [place], [place] [address]Dr. Farhat Leal FK506 (TACROLIMUS) WHOLE BLO ODon 06-01-2022 Tacrolimus (FK506), Blood 26.4 ng/mL Invalid Interpretation Code 2.0-20.0 [facility] Comment on above: Result Comment: Trou gh (immediately following transplant) 15.0 . Trough (steady state, 2 weeks or more after transplant): 3.0 - 8.0 . Performed by LC-MS/MS technology.Patient drug level exceeds published reference range. Evaluateclinically for signs of potential toxicity. Performed By: #### F K506T ####[facility] Uwamswmouz562[address] [place], [place] [address]DrSkylar Leal CBC AUTO DIFFon 05-29-2022 BASO # 0.0 103/ul Normal 0.0-0.1 [facility] Comment on above: Performed By: #### C BC ####[facility] Etnzttgedl298[address] [place], [place] [address]DrSkylar Leal Basophils/100 WBC (Bld) 0.6 % Normal 0.2-2.0 [facility] Comment on above: Performed By: #### C BC ####[facility] Gzkpgvpria06[address] [place], [place] [address]DrSkylar Leal EO # 0.3 103/ul Normal 0.0-0.7 [facility] Comment on above: Performed By: #### C BC ####[facility] Ioignrbiok317[address] [place], [place] [address]DrSkylar Leal Eosinophils/100 WBC (Bld) 4.7 % Normal 0.9-7.0 [facility] Comment on above: Performed By: #### C BC ####[facility] Xbtgxdwgen8701[address] [place], [place] [address]DrSkylar Leal Erythrocyte distribution width (RBC) [Ratio] 15.3 % Critically high 11.0-15.0 [facility] Comment on above: Performed By: #### C BC ####[facility] Foojclhfps[address] [place], [place] [address]DrSkylar Leal Hematocrit (Bld) [Volume fraction] 36.6 % Critically low 42.0-54.0 [facility] Comment on above: Performed By: #### C BC ####[facility] Zyrtspionw307[address] [place], [place] [address]Dr. Farhat Leal Hemoglobin (Bld) [Mass/Vol] 12.3 g/dL Critically low 14.0-18.0 [facility] Comment on above: Performed By: #### C BC ####[facility] Uulrjfzmuz8576 [place] [address]Dr. Farhat Leal IG # 0.02 10e3/ul Normal 0.00-0.03 [facility] Comment on above: Performed By: #### C BC ####[facility] Kroxbfiqpk2830[address] [place], [place] [address]Dr. Farhat Leal IG % 0.3 % Normal 0.0-0.5 [facility] Comment on above: Performed By: #### C BC ####[facility] Nxzodjzqcv3417[address] [place], [place] [address]Dr. Farhat Leal LYMPH # 2.8 103/ul Normal 1.2-3.8 [facility] Comment on above: Performed By: #### C BC ####[facility] Pjuoljzrcl6511[address] [place], [place] [address]Dr. Farhat Leal Lymphocytes/100 WBC (Bld) 44.4 % Normal 20.5-60.0 [facility] Comment on above: Performed By: #### C BC ####[facility] Qmbgufbgmi058[address] [place], [place] [address]DrSkylar Leal MANUAL DIFF REQ NO Normal [facility] Comment on above: Performed By: #### C BC ####[facility] Btxzaivogl5988[address] [place], [place] [address]Dr. Farhat Leal MCH (RBC) [Entitic mass] 30.4 pg Normal 25.9-34.0 [facility] Comment on above: Performed By: #### C BC ####[facility] Yydzsyivjy3936[address] [place], [place] [address]Dr. Farhat Leal MCHC (RBC) [Mass/Vol] 33.6 g/dL Normal 29.9-35.2 [facility] Comment on above: Performed By: #### C BC ####[facility] Tjrarllutt048[address] [place], [place] [address]Dr. Farhat Leal MCV (RBC) [Entitic vol] 90.4 fL Normal 80.0-94.0 [facility] Comment on above: Performed By: #### C BC ####[facility] Zsaqnnqwyz75[address] [place], [place] [address]DrSkylar Leal MONO # 0.7 103/ul Normal 0.3-0.8 [facility] Comment on above: Performed By: #### C BC ####[facility] Dcuwwzrknx624[address] [place], [place] [address]DrSkylar Farhat Leal Monocytes/100 WBC (Bld) 10.7 % Normal 1.7-12.0 [facility] Comment on above: Performed By: #### C BC ####[facility] Uiyxdsmjvs636[address] [place], [place] [address]DrSkylar Farhat Leal NEUT # 2.5 103/ul Normal 1.4-6.5 [facility] Comment on above: Performed By: #### C BC ####[facility] Hcgvhsfcmz24[address] [place], [place] [address]DrSkylar Farhat Leal Neutrophils/100 WBC (Bld) 39.3 % Critically low 43.0-75.0 [facility] Comment on above: Performed By: #### C BC ####[facility] Xxwqxconnf933[address] [place], [place] [address]DrSkylar Farhat Leal Platelet mean volume (Bld) [Entitic vol] 10.5 fL Normal 9.5-13.5 [facility] Comment on above: Performed By: #### C BC ####[facility] Sorsfgqxrh650[address] [place], [place] [address]DrSkylar Farhat Elvis PLT 190 103/ul Normal 150-450 [facility] Comment on above: Performed By: #### C BC ####[facility] Mhqsxwitgt816[address] [place], [place] [address]DrSkylar Joshilorri Elvis RBC 4.05 106/ul Critically low 4.70-6.10 [facility] Comment on above: Performed By: #### C BC ####[facility] Hdiprddhas985[address] [place], [place] [address]Dr. Farhat Leal WBC 6.4 103/ul Normal 4.0-11.0 [facility] Comment on above: Performed By: #### C BC ####[facility] Kpsoqebxrw887[address] [place], [place] [address]Dr. Farhat Leal PROF 14(COMP METB)on 023 Albumin [Mass/Vol] 2.5 g/dL Critically low 3.4-5.0 [facility] Comment on above: Performed By: #### C MP ####[facility] Sgjqbryrzu230[address] [place], [place] [address]Dr. Farhat Leal Albumin/Globulin [Mass ratio] 0.8 {ratio} Normal [facility] Comment on above: Performed By: #### C MP ####[facility] Entbchbbrl478[address] [place], [place] [address]Dr. Farhat Leal ALP [Catalytic activity/Vol] 61 U/L Normal 46-116 [facility] Comment on above: Performed By: #### C MP ####[facility] Nghlhpvofp923[address] [place], [place] [address]Dr. Farhat Leal ALT [Catalytic activity/Vol] 16 U/L Normal 16-63 [facility] Comment on above: Performed By: #### C MP ####[facility] Maiqwwlvis896[address] [place], [place] [address]Dr. Farhat Leal Anion gap [Moles/Vol] 12.3 mmol/L Normal [facility] Comment on above: Performed By: #### C MP ####[facility] Fynrugdkkd580[address] [place], [place] [address]Dr. Farhat Leal AST [Catalytic activity/Vol] 18 U/L Normal 15-37 [facility] Comment on above: Performed By: #### C MP ####[facility] Waenncxaqn007[address] [place], [place] [address]Dr. Farhat Leal Bilirubin [Mass/Vol] 0.5 mg/dL Normal 0.2-1.0 [facility] Comment on above: Performed By: #### C MP ####[facility] Mktvxojfet0985[address] [place], [place] [address]Dr. Farhat Leal Calcium [Mass/Vol] 8.6 mg/dL Normal 8.5-10.[address] [facility] Comment on above: Performed By: #### C MP ####[facility] Ltjvunvbus959[address] [place], [place] [address]Dr. Farhat Leal Chloride [Moles/Vol] 105 mmol/L Normal 98-107 [facility] Comment on above: Performed By: #### C MP ####[facility] Itmjnjxmki729[address] [place], [place] [address]Dr. Farhat Leal CO2 [Moles/Vol] 28.6 mmol/L Normal 21.0-32.0 [facility] Comment on above: Performed By: #### C MP ####[facility] Scmsyonfhy811[address] [place], [place] [address]Dr. Farhat Leal Creatinine [Mass/Vol] 1.47 mg/dL Critically high 0.70-1.30 [facility] Comment on above: Performed By: #### C MP ####[facility] Chsgjlevfh[address] [place], [place] [address]Dr. Farhat Leal EGFR-AF GRENADIAN 56 mL/min/1.73m2 Critically low >=60 [facility] Comment on above: Performed By: #### C MP ####[facility] Jqkbiuycrn[address] [place], [place] [address]Dr. Farhat Leal EGFR-NON AF GRENADIAN 46 mL/min/1.73m2 Critically low >=60 [facility] Comment on above: Performed By: #### C MP ####[facility] Yhkkzsfyxx6823[address] [place], [place] [address]Dr. Farhat Leal Globulin (S) [Mass/Vol] 3.3 g/dL Normal [facility] Comment on above: Performed By: #### C MP ####[facility] Foqttvzqux954[address] [place], [place] [address]Dr. Farhat Leal Glucose [Mass/Vol] 164 mg/dL Critically high 74-106 [facility] Comment on above: Performed By: #### C MP ####[facility] Ondjaeswjs507[address] [place], [place] [address]Dr. Farhat Leal Potassium [Moles/Vol] 3.9 mmol/L Normal 3.5-5.1 [facility] Comment on above: Performed By: #### C MP ####[facility] Wuymiltwpz8569[address] [place], [place] [address]Dr. Farhat Leal Protein [Mass/Vol] 5.8 g/dL Critically low 6.4-8.2 [facility] Comment on above: Performed By: #### C MP ####[facility] Xjvegnoyia8[address] [place], [place] [address]Dr. Farhat Leal Sodium [Moles/Vol] 142 mmol/L Normal 136-[address] [facility] Comment on above: Performed By: #### C MP ####[facility] Wsyzmkzeia894[address] [place], [place] [address]Dr. Farhat Leal Urea nitrogen [Mass/Vol] 53.0 mg/dL Critically high 7.0-18.0 [facility] Comment on above: Performed By: #### C MP ####[facility] Ikbojswoat687[address] [place], [place] [address]Dr. Farhat Leal Urea nitrogen/Creatinine [Mass ratio] 36.1 mg/mg Normal [facility] Comment on above: Performed By: #### C MP ####[facility] Rmifekntsi[address] [place], [place] [address]DrSkylar Leal PROTIMEon 05-29-2022 INR Coag (PPP) [Relative time] 2.41 {INR} Normal [facility] Comment on above: Performed By: #### P T ####[facility] Ovtlldkpqj37[address] [place], [place] [address]Dr. Farhat Leal INR GUIDELINES SEE BELOW Normal [facility] Comment on above: Result Comment: MALINA RED INR: 2.0 - 3.0 CONDITIONS NOT LISTED BELOW 2.5 - 3.5 FOR PROSTHETIC HEART VALVE REPLACEMENT 2.5 - 3.5 RECURRENT THROMBOSIS Performed By: #### P T ####[facility] Yykihqspnw[address] [place], [place] [address]Dr. Farhat Leal PT Coag (PPP) [Time] 24.3 s Critically high 9.0-11.6 [facility] Comment on above: Performed By: #### P T ####[facility] Wnhvbaaced938[address] [place], [place] [address]Dr. Farhat Elvis FK506 (TACROLIMUS) WHOLE BLO ODon 05-25-2022 Tacrolimus (FK506), Blood 5.1 ng/mL Normal 2.0-20.0 [facility] Comment on above: Result Comment: Trou gh (immediately following transplant) 15.0 . Trough (steady state, 2 weeks or more after transplant): 3.0 - 8.0 . Performed by LC-MS/MS technology. Performed By: #### F K506T ####[facility] Phjvupvcsl912[address] [place], [place] [address]Dr. Farhat Leal CBC AUTO DIFFon 05-22-2022 BASO # 0.0 103/ul Normal 0.0-0.1 [facility] Comment on above: Performed By: #### C BC ####[facility] Ttenjxlefg[address] [place], [place] [address]Dr. Farhat Leal Basophils/100 WBC (Bld) 0.5 % Normal 0.2-2.0 [facility] Comment on above: Performed By: #### C BC ####[facility] Lfswwetpqj585[address] [place], [place] [address]Dr. Farhat Leal EO # 0.2 103/ul Normal 0.0-0.7 [facility] Comment on above: Performed By: #### C BC ####[facility] Aitioliyel8688[address] [place], [place] [address]Dr. Farhat Leal Eosinophils/100 WBC (Bld) 4.0 % Normal 0.9-7.0 [facility] Comment on above: Performed By: #### C BC ####[facility] Cwejcwevdn417[address] [place], [place] [address]DrSkylar Leal Erythrocyte distribution width (RBC) [Ratio] 15.5 % Critically high 11.0-15.0 [facility] Comment on above: Performed By: #### C BC ####[facility] Zrduehzoiu205[address] [place], [place] [address]DrSkylar Leal Hematocrit (Bld) [Volume fraction] 34.1 % Critically low 42.0-54.0 [facility] Comment on above: Performed By: #### C BC ####[facility] Prjkyfcpoi2695 [place] [address]Dr. Farhat Elvis Hemoglobin (Bld) [Mass/Vol] 11.3 g/dL Critically low 14.0-18.0 [facility] Comment on above: Performed By: #### C BC ####[facility] Unacgbijio4320 [place] [address]Dr. Madelynlorri Elvis IG # 0.03 10e3/ul Normal 0.00-0.03 [facility] Comment on above: Performed By: #### C BC ####[facility] Sdhqaxbimn8[address] [place], [place] [address]Dr. Farhat Leal IG % 0.5 % Normal 0.0-0.5 [facility] Comment on above: Performed By: #### C BC ####[facility] Jmxyoshjsg744[address] [place], [place] [address]Dr. Farhat Leal LYMPH # 2.1 103/ul Normal 1.2-3.8 [facility] Comment on above: Performed By: #### C BC ####[facility] Sltnrbjorc509[address] [place], [place] [address]Dr. Farhat Leal Lymphocytes/100 WBC (Bld) 34.6 % Normal 20.5-60.0 [facility] Comment on above: Performed By: #### C BC ####[facility] Lhskmvdmbm8586 [place] [address]Dr. Farhat Leal MANUAL DIFF REQ NO Normal [facility] Comment on above: Performed By: #### C BC ####[facility] Xcllpykzjq2413 [place] [id number]. Farhat Leal MCH (RBC) [Entitic mass] 30.3 pg Normal 25.9-34.0 [facility] Comment on above: Performed By: #### C BC ####[facility] Cpuzimaghj1858 [place] [address]Dr. Farhat Leal MCHC (RBC) [Mass/Vol] 33.1 g/dL Normal 29.9-35.2 [facility] Comment on above: Performed By: #### C BC ####[facility] Fcvooggkze4802 [place] [id number]. Farhat Leal MCV (RBC) [Entitic vol] 91.4 fL Normal 80.0-94.0 [facility] Comment on above: Performed By: #### C BC ####[facility] Xqykjxmwzu3259 [place] [id number]. Farhat Leal MONO # 0.7 103/ul Normal 0.3-0.8 [facility] Comment on above: Performed By: #### C BC ####[facility] Fxpkulbthy9897 [place] [address]Dr. Farhat Leal Monocytes/100 WBC (Bld) 11.6 % Normal 1.7-12.0 [facility] Comment on above: Performed By: #### C BC ####[facility] Nwhwzkzhrq6400[address] [place], [place] [address]Dr. Farhat Leal NEUT # 2.9 103/ul Normal 1.4-6.5 [facility] Comment on above: Performed By: #### C BC ####[facility] Qyezrzlzdd466[address] [place], [place] [id number]. Farhat Leal Neutrophils/100 WBC (Bld) 48.8 % Normal 43.0-75.0 [facility] Comment on above: Performed By: #### C BC ####[facility] Bvcqlvqklb8225[address] [place], [place] [id number]. Farhat Leal Platelet mean volume (Bld) [Entitic vol] 10.9 fL Normal 9.5-13.5 [facility] Comment on above: Performed By: #### C BC ####[facility] Canmsgjmmp26[address] [place], [place] [address]Dr. Farhat Leal PLT 186 103/ul Normal 150-450 [facility] Comment on above: Performed By: #### C BC ####[facility] Aqcnzyvcto9946 [place] [id number]. Madelynlorri Elvis RBC 3.73 106/ul Critically low 4.70-6.10 [facility] Comment on above: Performed By: #### C BC ####[facility] Hfwzjwqszy4179 [place] [address]Dr. Farhat Leal WBC 6.0 103/ul Normal 4.0-11.0 [facility] Comment on above: Performed By: #### C BC ####[facility] Mrnbwiclfg5920 [place] [address]Dr. Farhat Leal PROF 14(COMP METB)on 023 Albumin [Mass/Vol] 2.7 g/dL Critically low 3.4-5.0 [facility] Comment on above: Performed By: #### C MP ####[facility] Lbptfkitsy7466 [place] [address]Dr. Farhat Leal Albumin/Globulin [Mass ratio] 0.8 {ratio} Normal [facility] Comment on above: Performed By: #### C MP ####[facility] Upvmefbohx4313 [place] [address]Dr. Farhat Leal ALP [Catalytic activity/Vol] 60 U/L Normal 46-116 [facility] Comment on above: Performed By: #### C MP ####[facility] Iaxqshhtku767[address] [place], [place] [address]Dr. Farhat Leal ALT [Catalytic activity/Vol] 17 U/L Normal 16-63 [facility] Comment on above: Performed By: #### C MP ####[facility] Erzmbpkdwp9492 [place] [address]Dr. Farhat Leal Anion gap [Moles/Vol] 9.6 mmol/L Normal [facility] Comment on above: Performed By: #### C MP ####[facility] Yyhehcjdry3190 [place] [address]Dr. Farhat Leal AST [Catalytic activity/Vol] 14 U/L Critically low 15-37 [facility] Comment on above: Performed By: #### C MP ####[facility] Qilwrdtsuf8742 [place] [address]Dr. Farhat Leal Bilirubin [Mass/Vol] 0.5 mg/dL Normal 0.2-1.0 [facility] Comment on above: Performed By: #### C MP ####[facility] Sjwmkyzznw6072 [place] [id number]. Farhat Leal Calcium [Mass/Vol] 8.4 mg/dL Critically low 8.5-10.1 [facility] Comment on above: Performed By: #### C MP ####[facility] Bbzxqdkowg8956 [place] [id number]. Farhat Leal Chloride [Moles/Vol] 104 mmol/L Normal 98-107 [facility] Comment on above: Performed By: #### C MP ####[facility] Bzclkbadct1499 [place] [address]Dr. Farhat Leal CO2 [Moles/Vol] 27.2 mmol/L Normal 21.0-32.0 [facility] Comment on above: Performed By: #### C MP ####[facility] Rrpgmsfdlu1240[address] [place], [place] [address]Dr. Farhat Leal Creatinine [Mass/Vol] 1.24 mg/dL Normal 0.70-1.30 [facility] Comment on above: Performed By: #### C MP ####[facility] Lwftdgrkit6939[address] [place], [place] [address]Dr. Farhat Leal EGFR-AF GRENADIAN >60 Normal >=60 [facility] Comment on above: Performed By: #### C MP ####[facility] Efmwahbwfx0946 [place] [phone]. Farhat Leal EGFR-NON AF GRENADIAN 57 mL/min/1.73m2 Critically low >=60 [facility] Comment on above: Performed By: #### C MP ####[facility] Hhkzyzomlz5136 [place] [phone]. Farhat Leal Globulin (S) [Mass/Vol] 3.3 g/dL Normal [facility] Comment on above: Performed By: #### C MP ####[facility] Ucfyuozkpl4265 [place] [phone]. Farhat Elvis Glucose [Mass/Vol] 275 mg/dL Critically high 74-106 [facility] Comment on above: Performed By: #### C MP ####[facility] Soqrazprwk9920 [place] [address]Dr. Farhat Leal Potassium [Moles/Vol] 3.8 mmol/L Normal 3.5-5.1 [facility] Comment on above: Performed By: #### C MP ####[facility] Xhgkvjjvip4486 [place] [address]Dr. Farhat Leal Protein [Mass/Vol] 6.0 g/dL Critically low 6.4-8.2 [facility] Comment on above: Performed By: #### C MP ####[facility] Gzhsywexdl6501[address] [place], [place] [address]Dr. Farhat Leal Sodium [Moles/Vol] 137 mmol/L Normal 136-[address] [facility] Comment on above: Performed By: #### C MP ####[facility] Xlytnljwtm640[address] [place], [place] [address]Dr. Farhat Leal Urea nitrogen [Mass/Vol] 54.0 mg/dL Critically high 7.0-18.0 [facility] Comment on above: Performed By: #### C MP ####[facility] Gevijrygxa909[address] [place], [place] [address]Dr. Farhat Leal Urea nitrogen/Creatinine [Mass ratio] 43.5 mg/mg Normal [facility] Comment on above: Performed By: #### C MP ####[facility] Zgoqahytmu047[address] [place], [place] [address]Dr. Farhat Leal PROTIMEon 05-22-2022 INR Coag (PPP) [Relative time] 2.27 {INR} Normal [facility] Comment on above: Performed By: #### P T ####[facility] Xguovsihff374[address] [place], [place] [address]Dr. Farhat Leal INR GUIDELINES SEE BELOW Normal [facility] Comment on above: Result Comment: MALINA RED INR: 2.0 - 3.0 CONDITIONS NOT LISTED BELOW 2.5 - 3.5 FOR PROSTHETIC HEART VALVE REPLACEMENT 2.5 - 3.5 RECURRENT THROMBOSIS Performed By: #### P T ####[facility] Kdxauduhai925[address] [place], [place] [address]Dr. Farhat Leal PT Coag (PPP) [Time] 23.0 s Critically high 9.0-11.6 [facility] Comment on above: Performed By: #### P T ####[facility] Gpgridqips899[address] [place], [place] [address]Dr. Farhat Leal FK506 (TACROLIMUS) WHOLE BLO ODon 05-19-2022 Tacrolimus (FK506), Blood 7.8 ng/mL Normal 2.0-20.0 [facility] Comment on above: Result Comment: Trou gh (immediately following transplant) 15.0 . Trough (steady state, 2 weeks or more after transplant): 3.0 - 8.0 . Performed by LC-MS/MS technology. Performed By: #### F K506T ####[facility] Hpupgcxgdo1180[address] [place], [place] [address]Dr. Farhat Leal CBC AUTO DIFFon 05-15-2022 BASO # 0.0 103/ul Normal 0.0-0.1 [facility] Comment on above: Performed By: #### C BC ####[facility] Zmjgxyekjh3913[address] [place], [place] [address]Dr. Farhat Leal Basophils/100 WBC (Bld) 0.4 % Normal 0.2-2.0 [facility] Comment on above: Performed By: #### C BC ####[facility] Uenfccaacq1965[address] [place], [place] [address]Dr. Farhat Leal EO # 0.2 103/ul Normal 0.0-0.7 [facility] Comment on above: Performed By: #### C BC ####[facility] Lsncabmvtb813[address] [place], [place] [address]Dr. Farhat Leal Eosinophils/100 WBC (Bld) 3.0 % Normal 0.9-7.0 [facility] Comment on above: Performed By: #### C BC ####[facility] Lxafjeirat038[address] [place], [place] [address]Dr. Farhat Leal Erythrocyte distribution width (RBC) [Ratio] 15.7 % Critically high 11.0-15.0 [facility] Comment on above: Performed By: #### C BC ####[facility] Aqnypaymam7789 [place] [address]Dr. Farhat Leal Hematocrit (Bld) [Volume fraction] 36.8 % Critically low 42.0-54.0 [facility] Comment on above: Performed By: #### C BC ####[facility] Taqiecphve9821 [place] [address]Dr. Farhat Leal Hemoglobin (Bld) [Mass/Vol] 12.4 g/dL Critically low 14.0-18.0 [facility] Comment on above: Performed By: #### C BC ####[facility] Tdqnzqbnzp1875[address] [place], [place] [address]Dr. Farhat Leal IG # 0.01 10e3/ul Normal 0.00-0.03 [facility] Comment on above: Performed By: #### C BC ####[facility] Qppbjzlfry017[address] [place], [place] [address]Dr. Farhat Leal IG % 0.1 % Normal 0.0-0.5 [facility] Comment on above: Performed By: #### C BC ####[facility] Jchglpeuje8[address] [place], [place] [address]Dr. Farhat Leal LYMPH # 2.4 103/ul Normal 1.2-3.8 [facility] Comment on above: Performed By: #### C BC ####[facility] Izqmxowjdq867[address] [place], [place] [address]Dr. Farhat Leal Lymphocytes/100 WBC (Bld) 35.6 % Normal 20.5-60.0 [facility] Comment on above: Performed By: #### C BC ####[facility] Zhbohbtiys089[address] [place], [place] [address]Dr. Farhat Leal MANUAL DIFF REQ NO Normal [facility] Comment on above: Performed By: #### C BC ####[facility] Ooigvxougg[address] [place], [place] [address]Dr. Farhat Leal MCH (RBC) [Entitic mass] 30.1 pg Normal 25.9-34.0 [facility] Comment on above: Performed By: #### C BC ####[facility] Rcslnfnfxl2265 [place] [id number]. Farhat Leal MCHC (RBC) [Mass/Vol] 33.7 g/dL Normal 29.9-35.2 [facility] Comment on above: Performed By: #### C BC ####[facility] Oyjuffxlvk2202 [place] [id number]. Farhat Leal MCV (RBC) [Entitic vol] 89.3 fL Normal 80.0-94.0 [facility] Comment on above: Performed By: #### C BC ####[facility] Siqbbtpoyn4124 [place] [id number]. Farhat Leal MONO # 0.7 103/ul Normal 0.3-0.8 [facility] Comment on above: Performed By: #### C BC ####[facility] Zijaqggscj1943 [place] [id number]. Madelynlorri Leal Monocytes/100 WBC (Bld) 10.8 % Normal 1.7-12.0 [facility] Comment on above: Performed By: #### C BC ####[facility] Ndtdtyoirf6086 [place] [id number]. Farhat Leal NEUT # 3.4 103/ul Normal 1.4-6.5 [facility] Comment on above: Performed By: #### C BC ####[facility] Tynkxzckky0469 [place] [id number]. Farhat Elvis Neutrophils/100 WBC (Bld) 50.1 % Normal 43.0-75.0 [facility] Comment on above: Performed By: #### C BC ####[facility] Ecrowellkg0134 [place] [id number]. Farhat Leal Platelet mean volume (Bld) [Entitic vol] 10.2 fL Normal 9.5-13.5 [facility] Comment on above: Performed By: #### C BC ####[facility] Folgukibqj3955 [place] [id number]. Farhat Elvis PLT 190 103/ul Normal 150-450 [facility] Comment on above: Performed By: #### C BC ####[facility] Ykanzapfnp0625 [place] [id number]. Farhat Leal RBC 4.12 106/ul Critically low 4.70-6.10 [facility] Comment on above: Performed By: #### C BC ####[facility] Ubobmsumng4236 [place] [address]Dr. Farhat Leal WBC 6.8 103/ul Normal 4.0-11.0 [facility] Comment on above: Performed By: #### C BC ####[facility] Gvxuqpbcro9232 [place] [address]Dr. Farhat Leal PROF 14(COMP METB)on 023 Albumin [Mass/Vol] 2.8 g/dL Critically low 3.4-5.0 [facility] Comment on above: Performed By: #### C MP ####[facility] Lymmyjobmb025[address] [place], [place] [address]Dr. Farhat Leal Albumin/Globulin [Mass ratio] 0.9 {ratio} Normal [facility] Comment on above: Performed By: #### C MP ####[facility] Qhqkbbzyaq479[address] [place], [place] [address]Dr. Farhat Leal ALP [Catalytic activity/Vol] 66 U/L Normal 46-116 [facility] Comment on above: Performed By: #### C MP ####[facility] Qghyqcbbbe7260[address] [place], [place] [address]Dr. Farhat Leal ALT [Catalytic activity/Vol] 15 U/L Critically low 16-63 [facility] Comment on above: Performed By: #### C MP ####[facility] Mmpjnumsda615[address] [place], [place] [address]Dr. Farhat Leal Anion gap [Moles/Vol] 11.1 mmol/L Normal [facility] Comment on above: Performed By: #### C MP ####[facility] Pqxjwsdfbn439[address] [place], [place] [address]Dr. Farhat Leal AST [Catalytic activity/Vol] 14 U/L Critically low 15-37 [facility] Comment on above: Performed By: #### C MP ####[facility] Ubaqowdgwa6963 [place] [address]Dr. Farhat Leal Bilirubin [Mass/Vol] 0.8 mg/dL Normal 0.2-1.0 [facility] Comment on above: Performed By: #### C MP ####[facility] Zncdkunfxu0800 [place] [id number]. Farhat Leal Calcium [Mass/Vol] 8.9 mg/dL Normal 8.5-10.[address] [facility] Comment on above: Performed By: #### C MP ####[facility] Lymlacujhg7618 [place] [id number]. Farhat Leal Chloride [Moles/Vol] 101 mmol/L Normal 98-107 [facility] Comment on above: Performed By: #### C MP ####[facility] Lexehhhqpy2257 [place] [address]Dr. Farhat Leal CO2 [Moles/Vol] 28.2 mmol/L Normal 21.0-32.0 [facility] Comment on above: Performed By: #### C MP ####[facility] Mfrmkwnefl257[address] [place], [place] [address]Dr. Farhat Leal Creatinine [Mass/Vol] 1.23 mg/dL Normal 0.70-1.30 [facility] Comment on above: Performed By: #### C MP ####[facility] Ojzzleptuy7368 [place] [address]Dr. Farhat Leal EGFR-AF GRENADIAN >60 Normal >=60 [facility] Comment on above: Performed By: #### C MP ####[facility] Nfykudhbnf3012 [place] [address]Dr. Farhat Leal EGFR-NON AF GRE[place]DIAN 57 mL/min/1.73m2 Critically low >=60 [facility] Comment on above: Performed By: #### C MP ####[facility] Ssbnaefdtx7813[address] [place], [place] [address]Dr. Farhat Leal Globulin (S) [Mass/Vol] 3.2 g/dL Normal [facility] Comment on above: Performed By: #### C MP ####[facility] Kzzorqrcqf677[address] [place], [place] [address]Dr. Farhat Leal Glucose [Mass/Vol] 333 mg/dL Critically high 74-106 [facility] Comment on above: Performed By: #### C MP ####[facility] Zxhrrazyky5440 [place] [address]Dr. Farhat Leal Potassium [Moles/Vol] 4.3 mmol/L Normal 3.5-5.1 [facility] Comment on above: Performed By: #### C MP ####[facility] Urygvafdck0396 [place] [address]Dr. Farhat Leal Protein [Mass/Vol] 6.0 g/dL Critically low 6.4-8.2 Th [facility] Comment on above: Performed By: #### C MP ####[facility] Srdykiocgq5905[address] [place], [place] [address]Dr. Farhat Leal Sodium [Moles/Vol] 136 mmol/L Normal 136-[address] [facility] Comment on above: Performed By: #### C MP ####[facility] Drnhqbwgyb4526[address] [place], [place] [address]Dr. Farhat Elvis Urea nitrogen [Mass/Vol] 58.0 mg/dL Critically high 7.0-18.0 [facility] Comment on above: Performed By: #### C MP ####[facility] Heimwkgtyb31[address] [place], [place] [address]Dr. Farhat Elvis Urea nitrogen/Creatinine [Mass ratio] 47.2 mg/mg Normal [facility] Comment on above: Performed By: #### C MP ####[facility] Gthoocxpyo378[address] [place], [place] [address]Dr. Farhat Leal PROTIMEon 05-13-2022 INR Coag (PPP) [Relative time] 3.51 {INR} Normal [facility] Comment on above: Performed By: #### P T ####[facility] Cybieywshb294[address] [place], [place] [address]Dr. Farhat Leal INR GUIDELINES SEE BELOW Normal [facility] Comment on above: Result Comment: MALINA RED INR: 2.0 - 3.0 CONDITIONS NOT LISTED BELOW 2.5 - 3.5 FOR PROSTHETIC HEART VALVE REPLACEMENT 2.5 - 3.5 RECURRENT THROMBOSIS Performed By: #### P T ####[facility] Npofarhflk0024[address] [place], [place] [address]Dr. Farhat Leal PT Coag (PPP) [Time] 34.7 s Critically high 9.0-11.6 [facility] Comment on above: Performed By: #### P T ####[facility] Ukzpznmtlg055[address] [place], [place] [address]DrSkylar Leal FK506 (TACROLIMUS) WHOLE BLO ODon 05-11-2022 Tacrolimus (FK506), Blood 14.4 ng/mL Normal 2.0-20.0 [facility] Comment on above: Result Comment: Trou gh (immediately following transplant) 15.0 . Trough (steady state, 2 weeks or more after transplant): 3.0 - 8.0 . Performed by LC-MS/MS technology. Performed By: #### F K506T ####[facility] Lkrcukvruw940[address] [place], [place] [address]DrSkylar Leal CBC AUTO DIFFon 05-08-2022 BASO # 0.0 103/ul Normal 0.0-0.1 [facility] Comment on above: Performed By: #### C BC ####[facility] Dphsiluyts936152 [address] [place], [place] [address]Dr. Farhat Leal Basophils/100 WBC (Bld) 0.5 % Normal 0.2-2.0 [facility] Comment on above: Performed By: #### C BC ####[facility] Wictaarctx[address] [place], [place] [address]Dr. Farhat Leal EO # 0.2 103/ul Normal 0.0-0.7 [facility] Comment on above: Performed By: #### C BC ####[facility] Xwcanvetai3827[address] [place], [place] [address]DrSkylar Leal Eosinophils/100 WBC (Bld) 2.9 % Normal 0.9-7.0 [facility] Comment on above: Performed By: #### C BC ####[facility] Frzukxiaqz310[address] [place], [place] [address]DrSkylar Leal Erythrocyte distribution width (RBC) [Ratio] 16.0 % Critically high 11.0-15.0 [facility] Comment on above: Performed By: #### C BC ####[facility] Cduydakxrx1444 [place] [address]Dr. Farhat Leal Hematocrit (Bld) [Volume fraction] 35.7 % Critically low 42.0-54.0 [facility] Comment on above: Performed By: #### C BC ####[facility] Wjpckjqcbh5840[address] [place], [place] [address]Dr. Farhat Leal Hemoglobin (Bld) [Mass/Vol] 11.9 g/dL Critically low 14.0-18.0 [facility] Comment on above: Performed By: #### C BC ####[facility] Hrnkdiqcua387[address] [place], [place] [address]Dr. Farhat Leal IG # 0.03 10e3/ul Normal 0.00-0.03 [facility] Comment on above: Performed By: #### C BC ####[facility] Bjpgpbhnzo810[address] [place], [place] [address]Dr. Madelynlorri Leal IG % 0.5 % Normal 0.0-0.5 [facility] Comment on above: Performed By: #### C BC ####[facility] Cnkahlleop6680[address] [place], [place] [address]DrSkylar Farhat Leal LYMPH # 2.4 103/ul Normal 1.2-3.8 [facility] Comment on above: Performed By: #### C BC ####[facility] Qzkeerwest[address] [place], [place] [address]DrSkylar Madelynlorri Leal Lymphocytes/100 WBC (Bld) 37.8 % Normal 20.5-60.0 [facility] Comment on above: Performed By: #### C BC ####[facility] Thdtitqfeg65[address] [place], [place] [address]DrSkylar Leal MANUAL DIFF REQ NO Normal [facility] Comment on above: Performed By: #### C BC ####[facility] Xxlqlxpckt509[address] [place], [place] [address]DrSkylar Leal MCH (RBC) [Entitic mass] 30.4 pg Normal 25.9-34.0 [facility] Comment on above: Performed By: #### C BC ####[facility] Toxvqxbdne3011 [place] [address]DrSkylar Leal MCHC (RBC) [Mass/Vol] 33.3 g/dL Normal 29.9-35.2 [facility] Comment on above: Performed By: #### C BC ####[facility] Jeonbojtze238[address] [place], [place] [address]DrSkylar Leal MCV (RBC) [Entitic vol] 91.1 fL Normal 80.0-94.0 [facility] Comment on above: Performed By: #### C BC ####[facility] Qfrhuzcxhn163[address] [place], [place] [address]DrSkylar Leal MONO # 0.7 103/ul Normal 0.3-0.8 [facility] Comment on above: Performed By: #### C BC ####[facility] Rfswbbmszr09[address] [place], [place] [address]DrSkylar Leal Monocytes/100 WBC (Bld) 11.1 % Normal 1.7-12.0 [facility] Comment on above: Performed By: #### C BC ####[facility] Soarjigw[address] [place], [place] [address]DrSkylar Leal NEUT # 2.9 103/ul Normal 1.4-6.5 [facility] Comment on above: Performed By: #### C BC ####[facility] Hkpmjnmwqk[address] [place], [place] [address]DrSkylar Leal Neutrophils/100 WBC (Bld) 47.2 % Normal 43.0-75.0 [facility] Comment on above: Performed By: #### C BC ####[facility] Skhbdxygnh8035[address] [place], [place] [address]DrSkylar Leal Platelet mean volume (Bld) [Entitic vol] 11.0 fL Normal 9.5-13.5 [facility] Comment on above: Performed By: #### C BC ####[facility] Myqcirjkzg704[address] [place], [place] [address]DrSkylar Leal PLT 191 103/ul Normal 150-450 [facility] Comment on above: Performed By: #### C BC ####[facility] Kgfvekoczb0407 [place] [address]Dr. Farhat Leal RBC 3.92 106/ul Critically low 4.70-6.10 The [facility] Comment on above: Performed By: #### C BC ####[facility] Yvyybfpjky6509 [place] [address]Dr. Farhat Leal WBC 6.2 103/ul Normal 4.0-11.0 [facility] Comment on above: Performed By: #### C BC ####[facility] Jtauwqketb4880 [place] [address]Dr. Farhat Leal MAGNESIUMon 05-08-2022 Magnesium [Mass/Vol] 1.9 mg/dL Normal 1.8-2.4 [facility] Comment on above: Performed By: #### P HOS, MG ####[facility] Jlctjlnpgc7850 [place] [address]Dr. Farhat Leal PHOSPHORUSon 05-08-2022 Phosphate [Mass/Vol] 4.5 mg/dL Normal 2.6-4.7 [facility] Comment on above: Performed By: #### P HOS, MG ####[facility] Osmubqbiql6614 [place] [address]Dr. Farhat Leal PROF 14(COMP METB)on 023 Albumin [Mass/Vol] 2.9 g/dL Critically low 3.4-5.0 [facility] Comment on above: Performed By: #### C MP ####[facility] Ilzioeuuhi0675 [place] [address]Dr. Farhat Leal Albumin/Globulin [Mass ratio] 0.9 {ratio} Normal [facility] Comment on above: Performed By: #### C MP ####[facility] Pwflvfkzmx3055 [place] [address]Dr. Farhat Leal ALP [Catalytic activity/Vol] 70 U/L Normal 46-116 [facility] Comment on above: Performed By: #### C MP ####[facility] Gadqjotpat3423 [place] [id number]. Farhat Leal ALT [Catalytic activity/Vol] 13 U/L Critically low 16-63 [facility] Comment on above: Performed By: #### C MP ####[facility] Lkrncsvppi4552 [place] [id number]. Farhat Leal Anion gap [Moles/Vol] 14.6 mmol/L Normal [facility] Comment on above: Performed By: #### C MP ####[facility] Rqdhsviouk0105 [place] [id number]. Farhat Leal AST [Catalytic activity/Vol] 17 U/L Normal 15-37 [facility] Comment on above: Performed By: #### C MP ####[facility] Zluzvfokdv9400 [place] [address]Dr. Farhat Leal Bilirubin [Mass/Vol] 0.8 mg/dL Normal 0.2-1.0 [facility] Comment on above: Performed By: #### C MP ####[facility] Dtvqpesaxj5433[address] [place], [place] [address]Dr. Farhat Leal Calcium [Mass/Vol] 8.9 mg/dL Normal 8.5-10.[address] [facility] Comment on above: Performed By: #### C MP ####[facility] Zzgukplmmi959052 [address] [place], [place] [address]Dr. Farhat Leal Chloride [Moles/Vol] 102 mmol/L Normal 98-107 [facility] Comment on above: Performed By: #### C MP ####[facility] Pxcceplqfm9799 [place] [address]Dr. Farhat Leal CO2 [Moles/Vol] 22.9 mmol/L Normal 21.0-32.0 [facility] Comment on above: Performed By: #### C MP ####[facility] Mfwwpmwuit1935 [place] [address]Dr. Farhat Leal Creatinine [Mass/Vol] 1.20 mg/dL Normal 0.70-1.30 [facility] Comment on above: Performed By: #### C MP ####[facility] Aqtnrndpsb3360 [place] [id number]. Farhat Leal EGFR-AF GRENADIAN >60 Normal >=60 [facility] Comment on above: Performed By: #### C MP ####[facility] Qnusypsnan1054 [place] [address]Dr. Farhat Leal EGFR-NON AF GRENADIAN 59 mL/min/1.73m2 Critically low >=60 [facility] Comment on above: Performed By: #### C MP ####[facility] Sfiexddibh5202 [place] [address]Dr. Farhat Leal Globulin (S) [Mass/Vol] 3.1 g/dL Normal [facility] Comment on above: Performed By: #### C MP ####[facility] Uunkdbolhm02[address] [place], [place] [address]Dr. Farhat Leal Glucose [Mass/Vol] 447 mg/dL Critically high 74-106 [facility] Comment on above: Performed By: #### C MP ####[facility] Papldeoaoh408152 [address] [place], [place] [address]Dr. Farhat Elvis Potassium [Moles/Vol] 4.5 mmol/L Normal 3.5-5.1 [facility] Comment on above: Performed By: #### C MP ####[facility] Oalttofhrb632[address] [place], [place] [address]Dr. Farhat Leal Protein [Mass/Vol] 6.0 g/dL Critically low 6.4-8.2 [facility] Comment on above: Performed By: #### C MP ####[facility] Uwvebnkjpi222152 [address] [place], [place] [address]Dr. Farhat Leal Sodium [Moles/Vol] 135 mmol/L Critically low 136-145 [facility] Comment on above: Performed By: #### C MP ####[facility] Pqafapiyzb968152 [address] [place], [place] [address]Dr. Farhat Leal Urea nitrogen [Mass/Vol] 52.0 mg/dL Critically high 7.0-18.0 [facility] Comment on above: Performed By: #### C MP ####[facility] Kymaeyedbd8[address] [place], [place] [address]Dr. Farhat Leal Urea nitrogen/Creatinine [Mass ratio] 43.3 mg/mg Normal [facility] Comment on above: Performed By: #### C MP ####[facility] Dwoqnyxawb18[address] [place], [place] [address]DrSkylar Leal PROTIMEon 05-06-2022 INR Coag (PPP) [Relative time] 2.25 {INR} Normal [facility] Comment on above: Performed By: #### P T ####[facility] Kmqzradcyh4912[address] [place], [place] [address]DrSkylar Leal INR GUIDELINES SEE BELOW Normal [facility] Comment on above: Result Comment: MALINA RED INR: 2.0 - 3.0 CONDITIONS NOT LISTED BELOW 2.5 - 3.5 FOR PROSTHETIC HEART VALVE REPLACEMENT 2.5 - 3.5 RECURRENT THROMBOSIS Performed By: #### P T ####[facility] Clchrtuiqv798[address] [place], [place] [address]Dr. Farhat Leal PT Coag (PPP) [Time] 22.8 s Critically high 9.0-11.6 [facility] Comment on above: Performed By: #### P T ####[facility] Khiytmsutz289[address] [place], [place] [address]DrSkylar Leal FK506 (TACROLIMUS) WHOLE BLO ODon 05-04-2022 Tacrolimus (FK506), Blood 10.4 ng/mL Normal 2.0-20.0 [facility] Comment on above: Result Comment: Trou gh (immediately following transplant) 15.0 . Trough (steady state, 2 weeks or more after transplant): 3.0 - 8.0 . Performed by LC-MS/MS technology. Performed By: #### F K506T ####[facility] Yirkofrbts277[address] [place], [place] [address]DrSkylar Leal CBC AUTO DIFFon 05-01-2022 BASO # 0.1 103/ul Normal 0.0-0.1 [facility] Comment on above: Performed By: #### C BC ####[facility] Ccbequloqs824[address] [place], [place] [address]DrSkylar Leal Basophils/100 WBC (Bld) 0.7 % Normal 0.2-2.0 [facility] Comment on above: Performed By: #### C BC ####[facility] Xtzpvsohhf635[address] [place], [place] [address]DrSkylar Leal EO # 0.2 103/ul Normal 0.0-0.7 [facility] Comment on above: Performed By: #### C BC ####[facility] Vtwvhvzxpn6823[address] [place], [place] [address]DrSkylar Leal Eosinophils/100 WBC (Bld) 3.2 % Normal 0.9-7.0 [facility] Comment on above: Performed By: #### C BC ####[facility] Hjxwtjcfyp2780[address] [place], [place] [address]Dr. Farhat Leal Erythrocyte distribution width (RBC) [Ratio] 16.4 % Critically high 11.0-15.0 [facility] Comment on above: Performed By: #### C BC ####[facility] Oyfzfhhyid1875[address] [place], [place] [address]Dr. Farhat Leal Hematocrit (Bld) [Volume fraction] 35.1 % Critically low 42.0-54.0 [facility] Comment on above: Performed By: #### C BC ####[facility] Zntacwlgsj433[address] [place], [place] [address]DrSkylar eLal Hemoglobin (Bld) [Mass/Vol] 11.6 g/dL Critically low 14.0-18.0 [facility] Comment on above: Performed By: #### C BC ####[facility] Ietlgxsuky7523[address] [place], [place] [address]DrSkylar Leal IG # 0.03 10e3/ul Normal 0.00-0.03 [facility] Comment on above: Performed By: #### C BC ####[facility] Pykxsanfjf710[address] [place], [place] [address]DrSkylar Leal IG % 0.4 % Normal 0.0-0.5 [facility] Comment on above: Performed By: #### C BC ####[facility] Ltjwkddlhb1613[address] [place], [place] [address]DrSkylar Leal LYMPH # 2.4 103/ul Normal 1.2-3.8 [facility] Comment on above: Performed By: #### C BC ####[facility] Niobwkqsdy5670 [place] [id number] Leal Lymphocytes/100 WBC (Bld) 35.1 % Normal 20.5-60.0 [facility] Comment on above: Performed By: #### C BC ####[facility] Flhkepxyms809[address] [place], [place] [address]DrSkylar Leal MANUAL DIFF REQ NO Normal [facility] Comment on above: Performed By: #### C BC ####[facility] Qguzwlouuw9979 [place] [address]DrSkylar Leal MCH (RBC) [Entitic mass] 29.4 pg Normal 25.9-34.0 [facility] Comment on above: Performed By: #### C BC ####[facility] Dwfjsdnxrp450[address] [place], [place] [address]DrSkylar Leal MCHC (RBC) [Mass/Vol] 33.0 g/dL Normal 29.9-35.2 [facility] Comment on above: Performed By: #### C BC ####[facility] Zyftxsskfb4864[address] [place], [place] [address]DrSkylar Leal MCV (RBC) [Entitic vol] 88.9 fL Normal 80.0-94.0 [facility] Comment on above: Performed By: #### C BC ####[facility] Xakqxjvskf120[address] [place], [place] [address]DrSkylar Leal MONO # 0.7 103/ul Normal 0.3-0.8 [facility] Comment on above: Performed By: #### C BC ####[facility] Ntyekttdeh0195[address] [place], [place] [address]DrSkylar Leal Monocytes/100 WBC (Bld) 9.6 % Normal 1.7-12.0 [facility] Comment on above: Performed By: #### C BC ####[facility] Ybbihtxiwa515[address] [place], [place] [address]DrSkylar Leal NEUT # 3.5 103/ul Normal 1.4-6.5 [facility] Comment on above: Performed By: #### C BC ####[facility] Zgsqqkkgfz8359 [place] [address]DrSkylar Leal Neutrophils/100 WBC (Bld) 51.0 % Normal 43.0-75.0 [facility] Comment on above: Performed By: #### C BC ####[facility] Ayyyvogtvp3559 [place] [address]Dr. Farhat Leal Platelet mean volume (Bld) [Entitic vol] 10.3 fL Normal 9.5-13.5 [facility] Comment on above: Performed By: #### C BC ####[facility] Tiyptaqsur377[address] [place], [place] [address]Dr. Farhat Leal PLT 184 103/ul Normal 150-450 [facility] Comment on above: Performed By: #### C BC ####[facility] Rsyjnjwyfl2335[address] [place], [place] [address]Dr. Farhat Leal RBC 3.95 106/ul Critically low 4.70-6.10 [facility] Comment on above: Performed By: #### C BC ####[facility] Bdzpmgucrx34[address] [place], [place] [address]DrSkylar Leal WBC 7.0 103/ul Normal 4.0-11.0 [facility] Comment on above: Performed By: #### C BC ####[facility] Lajwobwteg547[address] [place], [place] [address]DrSkylar Leal PROF 14(COMP METB)on 023 Albumin [Mass/Vol] 2.6 g/dL Critically low 3.4-5.0 Th [facility] Comment on above: Performed By: #### C MP ####[facility] Wnvpyrthgh206252 [address] [place], [place] [address]DrSkylar Leal Albumin/Globulin [Mass ratio] 0.9 {ratio} Normal [facility] Comment on above: Performed By: #### C MP ####[facility] Saqeiviljm600[address] [place], [place] [address]DrSkylar Leal ALP [Catalytic activity/Vol] 53 U/L Normal 46-116 [facility] Comment on above: Performed By: #### C MP ####[facility] Pwxjucbbgn5005 [place] [address]Dr. Farhat Elvis ALT [Catalytic activity/Vol] 17 U/L Normal 16-63 [facility] Comment on above: Performed By: #### C MP ####[facility] Qovnowpxur0946 [place] [id number]. Farhat Elvis Anion gap [Moles/Vol] 10.0 mmol/L Normal Th [facility] Comment on above: Performed By: #### C MP ####[facility] Tbqbenbagn987[address] [place], [place] [address]Dr. Farhat Elvis AST [Catalytic activity/Vol] 19 U/L Normal 15-37 [facility] Comment on above: Performed By: #### C MP ####[facility] Hsmanvjmew2000[address] [place], [place] [address]Dr. Farhat Elvis Bilirubin [Mass/Vol] 0.5 mg/dL Normal 0.2-1.0 [facility] Comment on above: Performed By: #### C MP ####[facility] Pqtnvmyezw254[address] [place], [place] [address]Dr. Farhat Elvis Calcium [Mass/Vol] 8.4 mg/dL Critically low 8.5-10.1 [facility] Comment on above: Performed By: #### C MP ####[facility] Tprbhevelr91985[address] [place], [place] [address]Dr. Farhat Elvis Chloride [Moles/Vol] 108 mmol/L Critically high 98-107 [facility] Comment on above: Performed By: #### C MP ####[facility] Xgaboamnvv6620[address] [place], [place] [address]Dr. Madelynlorri Leal CO2 [Moles/Vol] 26.9 mmol/L Normal 21.0-32.0 [facility] Comment on above: Performed By: #### C MP ####[facility] Immjkiczon254[address] [place], [place] [address]Dr. Farhat Elvis Creatinine [Mass/Vol] 1.20 mg/dL Normal 0.70-1.30 [facility] Comment on above: Performed By: #### C MP ####[facility] Bhubyyxcbm0465 [place] [id number]. Farhat Elvis EGFR-AF GRENADIAN >60 Normal >=60 [facility] Comment on above: Performed By: #### C MP ####[facility] Zjtzxqdwqt4784 [place] [id number]. Farhat Elvis EGFR-NON AF GRENADIAN 59 mL/min/1.73m2 Critically low >=60 [facility] Comment on above: Performed By: #### C MP ####[facility] Bmiapdnvzi3769 [place] [id number]. Farhat Leal Globulin (S) [Mass/Vol] 3.0 g/dL Normal [facility] Comment on above: Performed By: #### C MP ####[facility] Nhrxzbjqzd2226 [place] [address]Dr. Farhat Leal Glucose [Mass/Vol] 213 mg/dL Critically high 74-106 [facility] Comment on above: Performed By: #### C MP ####[facility] Gbpfgucjhs5729 [place] [id number]. Farhat Leal Potassium [Moles/Vol] 3.9 mmol/L Normal 3.5-5.1 [facility] Comment on above: Performed By: #### C MP ####[facility] Yklinesqld6024 [place] [id number]. Farhat Leal Protein [Mass/Vol] 5.6 g/dL Critically low 6.4-8.2 [facility] Comment on above: Performed By: #### C MP ####[facility] Grcygktbzm0029 [place] [id number]. Farhat Leal Sodium [Moles/Vol] 141 mmol/L Normal 136-[address] [facility] Comment on above: Performed By: #### C MP ####[facility] Edsmpddgzq8067 [place] [id number]. Farhat Leal Urea nitrogen [Mass/Vol] 61.0 mg/dL Critically high 7.0-18.0 [facility] Comment on above: Performed By: #### C MP ####[facility] Vfmgwfqvcl1711[address] [place], [place] [address]DrSkylar Leal Urea nitrogen/Creatinine [Mass ratio] 50.8 mg/mg Normal [facility] Comment on above: Performed By: #### C MP ####[facility] Mmyrfuvpqp595[address] [place], [place] [address]DrSkylar Leal FK506 (TACROLIMUS) WHOLE BLO ODon 04-27-2022 Tacrolimus (FK506), Blood 16.5 ng/mL Normal 2.0-20.0 [facility] Comment on above: Result Comment: Trou gh (immediately following transplant) 15.0 . Trough (steady state, 2 weeks or more after transplant): 3.0 - 8.0 . Performed by LC-MS/MS technology. Performed By: #### F K506T ####[facility] Pflzjuqwse789[address] [place], [place] [address]DrSkylar Leal CBC AUTO DIFFon 04-24-2022 BASO # 0.0 103/ul Normal 0.0-0.1 [facility] Comment on above: Performed By: #### C BC ####[facility] Quthmpktnp946[address] [place], [place] [address]Dr. Farhat Leal Basophils/100 WBC (Bld) 0.5 % Normal 0.2-2.0 [facility] Comment on above: Performed By: #### C BC ####[facility] Agwxwpgyar977052 [address] [place], [place] [address]DrSkylar Leal EO # 0.2 103/ul Normal 0.0-0.7 [facility] Comment on above: Performed By: #### C BC ####[facility] Wiiziwtwaa286352 [address] [place], [place] [address]DrSkylar Leal Eosinophils/100 WBC (Bld) 3.1 % Normal 0.9-7.0 [facility] Comment on above: Performed By: #### C BC ####[facility] Dbstxtlikq128[address] [place], [place] [address]Dr. Farhat Leal Erythrocyte distribution width (RBC) [Ratio] 16.3 % Critically high 11.0-15.0 [facility] Comment on above: Performed By: #### C BC ####[facility] Upsvqmrtnc1529 [place] [address]Dr. Farhat Leal Hematocrit (Bld) [Volume fraction] 34.0 % Critically low 42.0-54.0 [facility] Comment on above: Performed By: #### C BC ####[facility] Nmysrvmukv684[address] [place], [place] [address]DrSkylar Leal Hemoglobin (Bld) [Mass/Vol] 11.6 g/dL Critically low 14.0-18.0 [facility] Comment on above: Performed By: #### C BC ####[facility] Ykywwziigy485[address] [place], [place] [address]Dr. Farhat Leal IG # 0.02 10e3/ul Normal 0.00-0.03 [facility] Comment on above: Performed By: #### C BC ####[facility] Hkkfeunimb7795[address] [place], [place] [address]Dr. Farhat Leal IG % 0.4 % Normal 0.0-0.5 [facility] Comment on above: Performed By: #### C BC ####[facility] Hbfwgmambo3660[address] [place], [place] [address]DrSkylar Leal LYMPH # 2.2 103/ul Normal 1.2-3.8 [facility] Comment on above: Performed By: #### C BC ####[facility] Tzvxligqlq678252 [address] [place], [place] [address]DrSkylar Leal Lymphocytes/100 WBC (Bld) 38.8 % Normal 20.5-60.0 [facility] Comment on above: Performed By: #### C BC ####[facility] Jhomowdtop785[address] [place], [place] [address]DrSkylar Leal MANUAL DIFF REQ NO Normal [facility] Comment on above: Performed By: #### C BC ####[facility] Pdqproisks499[address] [place], [place] [address]DrSkylar Leal MCH (RBC) [Entitic mass] 30.1 pg Normal 25.9-34.0 [facility] Comment on above: Performed By: #### C BC ####[facility] Acpcstnfuv2129 [place] [address]Dr. Farhat Leal MCHC (RBC) [Mass/Vol] 34.1 g/dL Normal 29.9-35.2 [facility] Comment on above: Performed By: #### C BC ####[facility] Crlzhuqqkv444[address] [place], [place] [address]DrSkylar Leal MCV (RBC) [Entitic vol] 88.1 fL Normal 80.0-94.0 [facility] Comment on above: Performed By: #### C BC ####[facility] Ihypgquvdg1920[address] [place], [place] [address]DrSkylar Leal MONO # 0.6 103/ul Normal 0.3-0.8 [facility] Comment on above: Performed By: #### C BC ####[facility] Nophbryumw8526[address] [place], [place] [address]Dr. Farhat Leal Monocytes/100 WBC (Bld) 10.8 % Normal 1.7-12.0 [facility] Comment on above: Performed By: #### C BC ####[facility] Avyxcwbskl3665[address] [place], [place] [address]DrSkylar Leal NEUT # 2.6 103/ul Normal 1.4-6.5 [facility] Comment on above: Performed By: #### C BC ####[facility] Xvlepjvkbp0485[address] [place], [place] [address]DrSkylar Leal Neutrophils/100 WBC (Bld) 46.4 % Normal 43.0-75.0 [facility] Comment on above: Performed By: #### C BC ####[facility] Ypttqvysjw563[address] [place], [place] [address]DrSkylar Leal Platelet mean volume (Bld) [Entitic vol] 10.9 fL Normal 9.5-13.5 [facility] Comment on above: Performed By: #### C BC ####[facility] Kpiwojwcmg0664[address] [place], [place] [address]Dr. Farhat Leal PLT 159 103/ul Normal 150-450 [facility] Comment on above: Performed By: #### C BC ####[facility] Ivbmcvclki2938 [place] [address]Dr. Farhat Leal RBC 3.86 106/ul Critically low 4.70-6.10 [facility] Comment on above: Performed By: #### C BC ####[facility] Makgxfqojs2014 [place] [address]Dr. Farhat Leal WBC 5.6 103/ul Normal 4.0-11.0 [facility] Comment on above: Performed By: #### C BC ####[facility] Zltaandxtr6494 [place] [address]DrSkylar Farhat Leal PROTIMEon 04-24-2022 INR Coag (PPP) [Relative time] 3.23 {INR} Normal [facility] Comment on above: Performed By: #### P T ####[facility] Jdqurafnwe075[address] [place], [place] [address]Dr. Farhat Leal INR GUIDELINES SEE BELOW Normal [facility] Comment on above: Result Comment: MALINA RED INR: 2.0 - 3.0 CONDITIONS NOT LISTED BELOW 2.5 - 3.5 FOR PROSTHETIC HEART VALVE REPLACEMENT 2.5 - 3.5 RECURRENT THROMBOSIS Performed By: #### P T ####[facility] Gwyesjglbz779[address] [place], [place] [address]Dr. Farhat Leal PT Coag (PPP) [Time] 32.0 s Critically high 9.0-11.6 [facility] Comment on above: Performed By: #### P T ####[facility] Hjchuiabsf010[address] [place], [place] [address]Dr. Farhat Leal FK506 (TACROLIMUS) WHOLE BLO ODon 04-20-2022 Tacrolimus (FK506), Blood 13.9 ng/mL Normal 2.0-20.0 [facility] Comment on above: Result Comment: Trou gh (immediately following transplant) 15.0 . Trough (steady state, 2 weeks or more after transplant): 3.0 - 8.0 . Performed by LC-MS/MS technology. Performed By: #### F K506T ####[facility] Irpijahbpc4789 [place] [id number]. Farhat Leal CBC AUTO DIFFon 04-17-2022 BASO # 0.0 103/ul Normal 0.0-0.1 [facility] Comment on above: Performed By: #### C BC ####[facility] Scsbrigjxx0693 [place] [id number]. Madelynlorri Leal Basophils/100 WBC (Bld) 0.4 % Normal 0.2-2.0 [facility] Comment on above: Performed By: #### C BC ####[facility] Mitufngsmv2355 [place] [address]Dr. Farhat Leal EO # 0.2 103/ul Normal 0.0-0.7 [facility] Comment on above: Performed By: #### C BC ####[facility] Vayadpbonr0693 [place] [address]Dr. Madelynlorri Leal Eosinophils/100 WBC (Bld) 2.8 % Normal 0.9-7.0 [facility] Comment on above: Performed By: #### C BC ####[facility] Qlvwfnqwlq4422 [place] [address]Dr. Farhat Leal Erythrocyte distribution width (RBC) [Ratio] 16.1 % Critically high 11.0-15.0 [facility] Comment on above: Performed By: #### C BC ####[facility] Krhshcmota4224[address] [place], [place] [address]Dr. Farhat Leal Hematocrit (Bld) [Volume fraction] 35.7 % Critically low 42.0-54.0 [facility] Comment on above: Performed By: #### C BC ####[facility] Tjfqfnbkfz483[address] [place], [place] [address]Dr. Farhat Leal Hemoglobin (Bld) [Mass/Vol] 12.2 g/dL Critically low 14.0-18.0 [facility] Comment on above: Performed By: #### C BC ####[facility] Xipjmnekmk7259 [place] [id number]. Farhat Leal IG # 0.03 10e3/ul Normal 0.00-0.03 [facility] Comment on above: Performed By: #### C BC ####[facility] Wbmxaivpwe4142 [place] [address]Dr. Farhat Leal IG % 0.4 % Normal 0.0-0.5 [facility] Comment on above: Performed By: #### C BC ####[facility] Mnusjxrnfg9440 [place] [address]Dr. Farhat Leal LYMPH # 2.4 103/ul Normal 1.2-3.8 [facility] Comment on above: Performed By: #### C BC ####[facility] Vfknvdcraw6274 [place] [address]Dr. Farhat Leal Lymphocytes/100 WBC (Bld) 36.1 % Normal 20.5-60.0 [facility] Comment on above: Performed By: #### C BC ####[facility] Nbdstdfuto12[address] [place], [place] [address]Dr. Farhat Leal MANUAL DIFF REQ NO Normal [facility] [facility] Comment on above: Performed By: #### C BC ####[facility] Xrfoxnoued[address] [place] [id number]. Farhat Leal MCH (RBC) [Entitic mass] 30.3 pg Normal 25.9-34.0 [facility] Comment on above: Performed By: #### C BC ####[facility] Cftutrqjma[address] [place] [address]Dr. Farhat Leal MCHC (RBC) [Mass/Vol] 34.2 g/dL Normal 29.9-35.2 [facility] Comment on above: Performed By: #### C BC ####[facility] Zuwmvqpdcd[address] [place], [place] [address]Dr. Farhat Leal MCV (RBC) [Entitic vol] 88.6 fL Normal 80.0-94.0 [facility] Comment on above: Performed By: #### C BC ####[facility] Kjgqnkqgpy[address] [place], [place] [address]Dr. Farhat Leal MONO # 0.7 103/ul Normal 0.3-0.8 [facility] Comment on above: Performed By: #### C BC ####[facility] Velzkhwszh3323 [place] [id number]. Farhat Leal Monocytes/100 WBC (Bld) 10.1 % Normal 1.7-12.0 [facility] Comment on above: Performed By: #### C BC ####[facility] Nxfkavyzww5615 [place] [id number]. Farhat Leal NEUT # 3.4 103/ul Normal 1.4-6.5 [facility] Comment on above: Performed By: #### C BC ####[facility] Arpyztsotk6207 [place] [id number]. Farhat Leal Neutrophils/100 WBC (Bld) 50.2 % Normal 43.0-75.0 [facility] Comment on above: Performed By: #### C BC ####[facility] Mgkgbdxvun9950 [place] [id number]. Farhat Elvis Platelet mean volume (Bld) [Entitic vol] 11.8 fL Normal 9.5-13.5 [facility] Comment on above: Performed By: #### C BC ####[facility] Etfwhrwbra25[address] [place] [id number]. Farhat Leal PLT 193 103/ul Normal 150-450 [facility] Comment on above: Performed By: #### C BC ####[facility] Xkrasokwde1086 [place] [id number]. Farhat Leal RBC 4.03 106/ul Critically low 4.70-6.10 [facility] Comment on above: Performed By: #### C BC ####[facility] Itsmzcmkzl5034 [place] [id number]. Farhat Leal WBC 6.8 103/ul Normal 4.0-11.0 [facility] Comment on above: Performed By: #### C BC ####[facility] Etqmlvzfkt22[address] [place] [id number] Leal PROF 14(COMP METB)on 023 Albumin [Mass/Vol] 2.9 g/dL Critically low 3.4-5.0 [facility] Comment on above: Performed By: #### C MP ####[facility] Yoyfhhfaxz[address] [place] [address]Dr. Farhat Elvis Albumin/Globulin [Mass ratio] 0.9 {ratio} Normal [facility] Comment on above: Performed By: #### C MP ####[facility] Vucfjbdpgq2304 [place] [address]Dr. Farhat Elvis ALP [Catalytic activity/Vol] 67 U/L Normal 46-116 [facility] Comment on above: Performed By: #### C MP ####[facility] Otdhw[address]jag[address] [place], [place] [address]Dr. Farhat Elvis ALT [Catalytic activity/Vol] 15 U/L Critically low 16-63 [facility] Comment on above: Performed By: #### C MP ####[facility] Tiunrsxywa[address] [place], [place] [address]Dr. Farhat Leal Anion gap [Moles/Vol] 10.8 mmol/L Normal [facility] Comment on above: Performed By: #### C MP ####[facility] Hetnbioomo[address] [place], [place] [address]Dr. Farhat Elvis AST [Catalytic activity/Vol] 23 U/L Normal 15-37 [facility] Comment on above: Performed By: #### C MP ####[facility] Dokltyhxgg[address] [place], [place] [address]Dr. Farhat Leal Bilirubin [Mass/Vol] 0.6 mg/dL Normal 0.2-1.0 [facility] Comment on above: Performed By: #### C MP ####[facility] Zhugurkzld[address] [place], [place] [address]Dr. Farhat Leal Calcium [Mass/Vol] 8.7 mg/dL Normal 8.5-10.[address] [facility] Comment on above: Performed By: #### C MP ####[facility] Eizltiyzth[address] [place], [place] [address]Dr. Farhat Leal Chloride [Moles/Vol] 105 mmol/L Normal 98-107 [facility] Comment on above: Performed By: #### C MP ####[facility] Pvvwhloune2[address] [place] [phone]. Farhat Leal CO2 [Moles/Vol] 29.5 mmol/L Normal 21.0-32.0 [facility] Comment on above: Performed By: #### C MP ####[facility] Ivnzlnzomx70[address] [place] [id number]. Farhat Leal Creatinine [Mass/Vol] 1.37 mg/dL Critically high 0.70-1.30 [facility] Comment on above: Performed By: #### C MP ####[facility] Crnxmlxvbn2636 [place] [id number]. Farhat Leal EGFR-AF GRENADIAN >60 Normal >=60 [facility] Comment on above: Performed By: #### C MP ####[facility] C[address]oubnalc[address] [place] [address]Dr. Farhat Leal EGFR-NON AF GRENADIAN 50 mL/min/1.73m2 Critically low >=60 [facility] Comment on above: Performed By: #### C MP ####[facility] Cxylnrvfju39[address] [place] [address]Dr. Farhat Leal Globulin (S) [Mass/Vol] 3.1 g/dL Normal [facility] Comment on above: Performed By: #### C MP ####[facility] Nwwhadgkqx8[address] [place] [address]Dr. Farhat Leal Glucose [Mass/Vol] 203 mg/dL Critically high 74-106 [facility] Comment on above: Performed By: #### C MP ####[facility] Lqxcotnvri7152 [place] [id number]. Farhat Leal Potassium [Moles/Vol] 4.3 mmol/L Normal 3.5-5.1 [facility] Comment on above: Performed By: #### C MP ####[facility] Zdtuewqend9718 [place] [address]Dr. Farhat Leal Protein [Mass/Vol] 6.0 g/dL Critically low 6.4-8.2 [facility] Comment on above: Performed By: #### C MP ####[facility] Udikshjtxn5[address] [place] [phone]. Farhat Leal Sodium [Moles/Vol] 141 mmol/L Normal 136-[address] [facility] Comment on above: Performed By: #### C MP ####[facility] Qqqoyyheqe8479 [place] [id number]. Farhat Leal Urea nitrogen [Mass/Vol] 65.0 mg/dL Critically high 7.0-18.0 [facility] Comment on above: Performed By: #### C MP ####[facility] Kubyvuzcrn[address] [place] [address]Dr. Farhat Leal Urea nitrogen/Creatinine [Mass ratio] 47.4 mg/mg Normal [facility] Comment on above: Performed By: #### C MP ####[facility] Pnbgktyotz8[address] [place] [address]Dr. Farhat Leal PROTIMEon 04-15-2022 INR Coag (PPP) [Relative time] 3.88 {INR} Normal [facility] Comment on above: Performed By: #### P T ####[facility] Mdcvqlukob76[address] [place] [address]Dr. Farhat Leal INR GUIDELINES SEE BELOW Normal [facility] Comment on above: Result Comment: MALINA RED INR: 2.0 - 3.0 CONDITIONS NOT LISTED BELOW 2.5 - 3.5 FOR PROSTHETIC HEART VALVE REPLACEMENT 2.5 - 3.5 RECURRENT THROMBOSIS Performed By: #### P T ####[facility] V[address] [place], [place] [address]Dr. Farhat Leal PT Coag (PPP) [Time] 38.1 s Critically high 9.0-11.6 [facility] Comment on above: Performed By: #### P T ####[facility] Cszmcjbbzf[address] [place], [place] [address]Dr. Farhat Leal Glucose Glucometer (BldC) [M ass/Vol]Ordered By: Sadia Aguilar on 04-14-2022 Glucose [Mass/Vol] 162 mg/dL [facility] Comment on above: Random Glucose Refer ence Range is dependent on time and content of last meal. Glucose of more than 200 mg/dL in a nonstressed, ambulatory subject supports the diagnosis of Diabetes Mellitus. Glucose Poct Glucometerson 0 04-14-2022 Commemt1 Glu2: Cleaned Meter Normal [facility] Comment on above: Result Comment: PERF ORMED BY: [facility] [address] PATHOLOGIST [employer]UCTURAL ENGINEER JOSE F ELLIOTT M.D. Performed By: #### G LULS #### Point of Care testing , Glucose [Mass/Vol] 162 mg/dL Normal [facility] Comment on above: Result Comment: [place] Glucose Reference Range is dependent on time and content of last meal. Glucose of more than 200 mg/dL in a nonstressed, ambulatory subject supports the diagnosis of Diabetes Mellitus. Performed By: #### G LULS #### Point of Care testing , No Panel InformationOrdered By: Sadia Aguilar on 04-14-2022 Bedside Glucose Comment Glu2: cleaned meter [facility] MAGNESIUMon 04-13-2022 Magnesium [Mass/Vol] 1.7 mg/dL Critically low 1.8-2.4 [facility] Comment on above: Performed By: #### M HENRI Manzo ####[facility] Jrzitcnitv[address] [place] [address]Dr. Farhat Leal PHOSPHORUSon 04-13-2022 Phosphate [Mass/Vol] 4.8 mg/dL Critically high 2.6-4.7 [facility] Comment on above: Performed By: #### M HENRI Manzo ####[facility] W[address]lcgfqa[address] [place] [address]Dr. Farhat Leal PROTIMEon 04-13-2022 INR Coag (PPP) [Relative time] 3.16 {INR} Normal [facility] Comment on above: Performed By: #### P T ####[facility] Az[address]emokqrf[address] [place] [address]Dr. Farhat Leal INR GUIDELINES SEE BELOW Normal [facility] Comment on above: Result Comment: MALINA RED INR: 2.0 - 3.0 CONDITIONS NOT LISTED BELOW 2.5 - 3.5 FOR PROSTHETIC HEART VALVE REPLACEMENT 2.5 - 3.5 RECURRENT THROMBOSIS Performed By: #### P T ####[facility] Cafggjzyjt[address] [place] [address]Dr. Farhat Leal PT Coag (PPP) [Time] 31.4 s Critically high 9.0-11.6 [facility] Comment on above: Performed By: #### P T ####[facility] Kroyszwior[address] [place] [address]Dr. Farhat Leal MAGNESIUMon 03-11-2022 Magnesium [Mass/Vol] 1.6 mg/dL Critically low 1.8-2.4 [facility] Comment on above: Performed By: #### M Anais, HENRI ####[facility] [address]ub[address]cc[address] [place] [address]Dr. Farhat Leal PHOSPHORUSon 03-11-2022 Phosphate [Mass/Vol] 5.3 mg/dL Critically high 2.6-4.7 [facility] Comment on above: Performed By: #### Demetrice Manzo, HENRI ####[facility] Hvcgtalful[address] [place], [place] [address]Dr. Farhat Leal CNOVon 02-26-2022 CNOV Office Visit (HONEY ) ALEX ALMONTE ([id number]) 1945 M TRN Date Time Provider Department 02/26/22 3:00 PM HINA PETERSON During your visit today, we recorded the following information about you: Temperature Pulse Blood pressure 96.6 degrees 75/minute 88/75 Hina Peterson MD, MD 02/26/2022 4:31 PM Signed [facility] DEPART[facility] OF VASCULAR SURGERY OUTPATIENT VISIT DATE [...] postop visit. He has been in senior living since then and has been recovering from his acute on chronic congestive heart failure. His wound has largely been healing without any issues and the maxwell and sutures were removed at the nursing facility. He comes here with a lateral wound eschar. He denies any fevers, chills, or any drainage. He is on anticoagulation. 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 Magic Cup Tensas with lunch aspirin, enteric coated (ASPIRIN, ENTERIC COATED) 81 mg EC tablet Take 1 tablet by (more content not included)... Normal [facility] Walter PROTIMEon 02-25-2022 INR Coag (PPP) [Relative time] 1.31 {INR} Normal [facility] Comment on above: Performed By: #### P T ####[facility] Jofgmpsiut[address] [place] [address]DrSkylar Leal INR GUIDELINES SEE BELOW Normal [facility] Comment on above: Result Comment: MALINA RED INR: 2.0 - 3.0 CONDITIONS NOT LISTED BELOW 2.5 - 3.5 FOR PROSTHETIC HEART VALVE REPLACEMENT 2.5 - 3.5 RECURRENT THROMBOSIS Performed By: #### P T ####[facility] Ozaphhmzkg3433 [place] [address]DrSkylar Leal PT Coag (PPP) [Time] 13.7 s Critically high 9.0-11.6 [facility] Comment on above: Performed By: #### P T ####[facility] Gfzluypbkk[address] [place] [address]DrSkylar Leal CNPNon 02-19-2022 CNPN Telephone (TXCTGL) ALEX ALMONTE ([id number]) 1945 M TRN Date Time Provider Department 02/19/22 AUGUSTA MEDRANO TXCTGL During your visit today, we recorded the following information about you: Augusta Medrano RN 02/19/2022 11:16 AM Signed Alex Almonte's nursing facility, [facility], [...] by mouth daily with lunch. 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 Almonte would like to request a sooner appointment with Dr. Peterson than 04/13/2022. Contact Name (if not the patient) Alex's nurse Home and cell number(Ask for Alex's nurse) [phone] Diagnosis 4 mo f/u wound check Best [...] by mouth daily with lunch. 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 Normal [facility] CNOVon 02-05-2022 CNOV Office Visit (TXCTGL ) MINE ALMONTEJESÚS Kate ([id number]) 1945 M TRN Date Time Provider Department 02/05/22 8:20 AM [facility]NEY TX[facility]IN[facility] TXCTGL During your visit today, we recorded the following information about you: Temperature Pulse Blood pressure 96.7 degrees 79/minute 72/42 Asia Pike MD 02/05/2022 9:38 AM Signed [facility] Trans[facility] Follow up Portions of this note were copied from the last encounter. Changes were made to appropriately reflect updated history and interval events, physical exam, data review, and medical decision making. Patient presents for renal tx follow up care - Hospital admission / discharge in November 2021 for osteomyelitis HPI: lAex Almonte is a 76 yr old male, [...] Indra scale at [facility]: 166.2 lbs per patient. Bed sore on coccyx causing discomfort. Being changed regularly at SNF- reported to be smaller around but still as deep. Patient not very up to date with medications. Patient brought paperwork from [employer] with all medications being received. Patient unsure if they have been drawing labs regularly. Last Tac from 01/19: 12.9 and K 5.9. In need of current labs. Lab orders will be sent with patient and follows as below: [facility]ney [facility] Pan[facility] Transplant Standing [facility] [address] [facility] [address] [place], [place] [address] February 05, 2022 Alex Almonte 1945 [id number] STANDARD TESTING: Diagnosis Codes: Z94.0 Kidney Transplant [...] AT YOUR LABORATORY FACILITY AND FAX TO [phone]. PLEASE CALL [phone]. Provider: Dr. Pike Current Outpatient Medications Medication [...] Take 237 (more content not included)... Normal [facility] PROTEIN CREATININE RATIOon 1 04-08-2021 Protein/Creatinine (U) [Mass ratio] 0.10 mg/mg <0.15 mg/mg [facility] PROTIMEon 02-05-2022 INR Coag (PPP) [Relative time] 2.90 {INR} Normal [facility] Comment on above: Performed By: #### P T ####[facility] Jebbm[address]asq[address] [place] [id number] Leal INR GUIDELINES SEE BELOW Normal [facility] Comment on above: Result Comment: MALINA RED INR: 2.0 - 3.0 CONDITIONS NOT LISTED BELOW 2.5 - 3.5 FOR PROSTHETIC HEART VALVE REPLACEMENT 2.5 - 3.5 RECURRENT THROMBOSIS Performed By: #### P T ####[facility] Xqiwmjszre[address] [place] [id number] Leal PT Coag (PPP) [Time] 29.2 s Critically high 9.0-11.6 [facility] Comment on above: Performed By: #### P T ####[facility] Ff[address]flvnyf[address] [place] [address]Dr. Farhat Leal Prot/Creat Uron 02-05-2022 Protein/Creatinine (U) [Mass ratio] 0.10 mg/mg Normal <0.15 [facility] Comment on above: Order Comment: Speci men Type: URINE SPECIMENOrdering Facility: [facility] Address: [address] [place] [address] Result Comment: Adul t Proteinuria Categories: <0.15 mg/mg is considered normal to mildly increased 0.15 - 0.50 mg/mg is considered moderately increased >0.50 mg/mg is considered severely increased KDIGO. (2013). KDIGO 2012 Clinical Practice Guideline for the Evaluation and Management of Chronic Kidney Disease. Official Journal of the International Society of Nephrology, 3(1), 1-150. Performed By: #### 2 890-2 ####[facility] LABCLIA [id number] [place] [address] [place] Protein/Creatinine (U) [Mass ratio]on 02-05-2022 Creatinine (U) [Mass/Vol] 86.9 mg/dL 20.0 - 300.0 mg/dL [facility] Protein (U) [Mass/Vol] 9 mg/dL 0 - 20 mg/dL [facility] Creatinine (U) [Mass/Vol] 86.9 mg/dL Normal 20.0-300.0 [facility] Comment on above: Order Comment: Speci men Type: URINE SPECIMENOrdering Facility: [facility] Address: [address] Performed By: #### 2 890-2 ####[facility] LABCLIA [id number] [place] [address] [place] Protein (U) [Mass/Vol] 9 mg/dL Normal 0-20 [facility] Comment on above: Order Comment: Speci men Type: URINE SPECIMENOrdering Facility: [facility] Address: [address] Performed By: #### 2 890-2 ####[facility] LABCLIA [id number] [place] [address] [place] URINALYSIS, DIPSTICK ONLYon 02-05-2022 Bilirubin Ql (U) Negative Normal Negative [facility] Comment on above: Order Comment: Speci men Type: URINE SPECIMEN [facility] Address: [address] Performed By: #### U A #### [facility] CLIA [id number] [address] [place] [address] [place] Clarity (Unsp spec) Clear Normal Clear [facility] Comment on above: Order Comment: Speci men Type: URINE SPECIMEN [facility] Address: [address] Performed By: #### U A #### [facility] CLIA [id number] [address] [place] [address] [place] Color (U) Yellow Normal Yellow [facility] Comment on above: Order Comment: Speci men Type: URINE SPECIMEN [facility] Address: [address] Performed By: #### U A #### [facility] CLIA [id number] [address] [place] [address] [place] Glucose Test strip (U) [Mass/Vol] 3+ Abnormal Trace, Negative [facility] Comment on above: Order Comment: Speci men Type: URINE SPECIMEN [facility] Address: [address] [place] [address] Performed By: #### U A #### [facility] CLIA [id number] [address] [place] [address] [place] Hemoglobin Ql (U) Negative Normal Negative, Trace [facility] Comment on above: Order Comment: Speci men Type: URINE SPECIMEN [facility] Address: [address] [place] [address] Performed By: #### U A #### [facility] CLIA [id number] [address] [place] [address] [place] Ketones Ql (U) Trace Normal Negative, Trace [facility] Comment on above: Order Comment: Speci men Type: URINE SPECIMEN [facility] Address: [address] [place] [address] Performed By: #### U A #### [facility] CLIA [id number] [address] [place] [address] [place] Leukocyte esterase Test strip Ql (U) Negative Normal Negative, 25 Loraine/mL [facility] Comment on above: Order Comment: Speci men Type: URINE SPECIMEN [facility] Address: [address] [place] [address] Performed By: #### U A #### [facility] CLIA [id number] [address] [place] [address] [place] Nitrite Ql (U) Negative Normal Negative [facility] Comment on above: Order Comment: Speci men Type: URINE SPECIMEN [facility] Address: [address] [place] [address] Performed By: #### U A #### [facility] CLIA [id number] [facility] [place] [address] [place] pH (U) 5.5 [pH] Normal 5.0-8.0 [facility] Comment on above: Order Comment: Speci men Type: URINE SPECIMEN [facility] Address: [address] [place] [address] Performed By: #### U A #### [facility] CLIA [id number] [address] [place] [address] [place] Protein (U) [Mass/Vol] Negative Normal Trace , Negative [facility] Comment on above: Order Comment: Speci men Type: URINE SPECIMEN [facility] Address: [address] [place] [address] Performed By: #### U A #### [facility] IA [id number] [address] [place] [address] [place] Specific gravity (U) [Rel density] 1.014 Normal 1.005-1.030 [facility] Comment on above: Order Comment: Speci men Type: URINE SPECIMEN [facility] Address: [address] [place] [address] Performed By: #### U A #### [facility] [place] [id number] [address] [place] [address] [place] Urobilinogen Ql (U) 1+ Abnormal Negative [facility] Comment on above: Order Comment: Speci men Type: URINE SPECIMEN [facility] Address: [address] [place] [address] Performed By: #### U A #### [facility] [place] [id number] [address] [place] [address] [place] Bilirubin Ql (U) Negative Negative [facility] Clarity (Unsp spec) Clear Clear [facility] Color (U) Yellow Yellow [facility] Glucose Test strip (U) [Mass/Vol] 3+ Abnormal Trace, Negative [facility] Hemoglobin Ql (U) Negative Negative, Trace [facility] Ketones Ql (U) Trace Negative, Trace [facility] Leukocyte esterase Test strip Ql (U) Negative Negative, 25 Loraine/mL [facility] Nitrite Ql (U) Negative Negative [facility] pH (U) 5.5 [pH] 5.0 - 8.0 [facility] Protein (U) [Mass/Vol] Negative Trace , Negative [facility] Specific gravity (U) [Rel density] 1.014 1.005 - 1.030 [facility] Urobilinogen Ql (U) 1+ Abnormal Negative [facility] FK506 (TACROLIMUS) WHOLE BLO ODon 01-29-2022 Tacrolimus (FK506), Blood 11.1 ng/mL Normal 2.0-20.0 [facility] Comment on above: Result Comment: Trou gh (immediately following transplant) 15.0 . Trough (steady state, 2 weeks or more after transplant): 3.0 - 8.0 . Performed by LC-MS/MS technology. Performed By: #### F K506T ####[facility] [address] [place], [place] [address]Dr. Farhat Leal PHOSPHORUSon 01-26-2022 Phosphate [Mass/Vol] 4.1 mg/dL Normal 2.6-4.7 [facility] Comment on above: Performed By: #### C CARA PHOS ####[facility] Vgqlqeigji[address] [place] [address]DrSkylar Leal PROF 14(COMP METB)on 022 Albumin [Mass/Vol] 2.1 g/dL Critically low 3.4-5.0 [facility] Comment on above: Performed By: #### C CARA PHOS ####[facility] Svvndyysvv7181 [place] [address]DrSkylar Leal Albumin/Globulin [Mass ratio] 0.6 {ratio} Normal [facility] Comment on above: Performed By: #### C CARA PHOS ####[facility] Vqwdrsgkbi5657 [place] [address]Dr. Farhat Leal ALP [Catalytic activity/Vol] 89 U/L Normal 46-116 [facility] Comment on above: Performed By: #### C MP, PHOS ####[facility] Wavdrntvpv7025 [place] [address]Dr. Farhat Leal ALT [Catalytic activity/Vol] 27 U/L Normal 16-63 [facility] Comment on above: Performed By: #### C MP, PHOS ####[facility] Cjvojwgrdv1700 [place] [address]Dr. Farhat Elvis Anion gap [Moles/Vol] 12.3 mmol/L Normal [facility] Comment on above: Performed By: #### C MP, PHOS ####[facility] Laoocvpicw[address] [place], [place] [address]Dr. Farhat Elvis AST [Catalytic activity/Vol] 53 U/L Critically high 15-37 [facility] Comment on above: Performed By: #### C CARA, PHOS ####[facility] Ipicktubwa489[address] [place], [place] [address]Dr. Farhat Leal Bilirubin [Mass/Vol] 0.6 mg/dL Normal 0.2-1.0 [facility] Comment on above: Performed By: #### C CARA, PHOS ####[facility] Jtxmibkkuh7[address] [place], [place] [address]Dr. Madelynlorri Leal Calcium [Mass/Vol] 8.0 mg/dL Critically low 8.5-10.1 [facility] Comment on above: Performed By: #### C CARA, PHOS ####[facility] Htgaqziomb396[address] [place], [place] [address]Dr. Farhat Elvis Chloride [Moles/Vol] 97 mmol/L Critically low 98-107 [facility] Comment on above: Performed By: #### C MP, PHOS ####[facility] Dhqpaxphkp0399[address] [place], [place] [address]Dr. Farhat Leal CO2 [Moles/Vol] 26.6 mmol/L Normal 21.0-32.0 [facility] Comment on above: Performed By: #### C CARA, PHOS ####[facility] Hvtlugawbf55[address] [place], [place] [address]Dr. Farhat Leal Creatinine [Mass/Vol] 1.03 mg/dL Normal 0.70-1.30 [facility] Comment on above: Performed By: #### C CARA, PHOS ####[facility] Bofxzqindv4[address] [place] [address]Dr. Farhat Leal EGFR-AF GRENADIAN >60 Normal >=60 [facility] Comment on above: Performed By: #### C CARA, PHOS ####[facility] Evrbfyksfq3156 [place] [address]Dr. Farhat Leal EGFR-NON AF GRENADIAN >60 Normal >=60 [facility] Comment on above: Performed By: #### C CARA, PHOS ####[facility] Nikcemrrfz225[address] [place], [place] [address]Dr. Farhat Leal Globulin (S) [Mass/Vol] 3.7 g/dL Normal [facility] Comment on above: Performed By: #### C CARA, PHOS ####[facility] Ejudgwqtxr896[address] [place], [place] [address]Dr. Farhat eLal Glucose [Mass/Vol] 287 mg/dL Critically high 74-106 [facility] Comment on above: Performed By: #### C CARA, PHOS ####[facility] Bvcegtwhxa6610[address] [place], [place] [address]Dr. Farhat Leal Potassium [Moles/Vol] 3.9 mmol/L Normal 3.5-5.1 [facility] Comment on above: Performed By: #### C CARA, PHOS ####[facility] Hejsfkxfxw785[address] [place], [place] [address]Dr. Farhat Leal Protein [Mass/Vol] 5.8 g/dL Critically low 6.4-8.2 Th [facility] Comment on above: Performed By: #### C CARA, PHOS ####[facility] Bydojcorbn504[address] [place], [place] [address]Dr. Farhat Leal Sodium [Moles/Vol] 132 mmol/L Critically low 136-145 [facility] Comment on above: Performed By: #### C CARA, PHOS ####[facility] Jydwuyrart5099 [place] [id number]. Farhat Leal Urea nitrogen [Mass/Vol] 23.0 mg/dL Critically high 7.0-18.0 [facility] Comment on above: Performed By: #### C HENRI MARROQUIN ####[facility] Jsdvphpfry8520 [place] [id number]. Farhat Leal Urea nitrogen/Creatinine [Mass ratio] 22.3 mg/mg Normal [facility] Comment on above: Performed By: #### C HENRI MARROQUIN ####[facility] Lgrtsiqiiu4837[address] [place], [place] [address]Dr. Farhat Leal FK506 (TACROLIMUS) WHOLE BLO ODon 01-21-2022 Tacrolimus (FK506), Blood 12.2 ng/mL Normal 2.0-20.0 [facility] Comment on above: Result Comment: Trou gh (immediately following transplant) 15.0 . Trough (steady state, 2 weeks or more after transplant): 3.0 - 8.0 . Performed by LC-MS/MS technology. Performed By: #### F K506T ####[facility] Rpxecpkmsg2499[address] [place], [place] [address]Dr. Farhat Leal ACID FAST SMEAR AND CXon Acid Fast Culture Negative Normal [facility] Comment on above: Result Comment: No a abdiel fast bacilli isolated after 6 weeks. Performed By: #### A FB ####[facility] Exqybjyeat88[address] [place] [address]Dr. Farhat Leal Acid Fast Smear Negative Normal [facility] Comment on above: Performed By: #### A FB ####[facility] Qonbvtnkvg3314[address] [place], [place] [address]Dr. Farhat Leal [employer] Specimen Processing Tissue Grinding Normal [facility] Comment on above: Performed By: #### A FB ####[facility] Bntenhlxue700[address] [place], [place] [address]Dr. Farhat Hassan [facility] ALEX ALMONTE ([id number]) 1945 M TRN Date Time Provider Department 01/20/22 VAN OLIVAREZ During your visit today, we recorded the following information about you: Van Olivarez APRN.CNP 01/20/2022 1:14 PM Signed Labs noted from yesterday. Pt is currently residing at [facility], I spoke with the Nurse, the [...] by mouth daily with lunch. 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9 g/dL Critically low 3.4-5.0 [facility] Comment on above: Performed By: #### C MP ####[facility] Ylfmyqjorw7443 [place] [address]DrSkylar Leal Albumin/Globulin [Mass ratio] 0.5 {ratio} Normal [facility] Comment on above: Performed By: #### C MP ####[facility] Bbixhhzwsx8206 [place] [address]DrSkylar Leal ALP [Catalytic activity/Vol] 78 U/L Normal 46-116 [facility] Comment on above: Performed By: #### C MP ####[facility] Ltdzrbwzyh7538 [place] [address]Dr. Farhat Leal ALT [Catalytic activity/Vol] 22 U/L Normal 16-63 [facility] Comment on above: Performed By: #### C MP ####[facility] Mzgmhumvfj2692 [place] [address]Dr. Madelynlorri Elvis Anion gap [Moles/Vol] 8.0 mmol/L Normal [facility] Comment on above: Performed By: #### C MP ####[facility] Cnxkrvbvun511[address] [place], [place] [address]Dr. Madelynlorri Leal AST [Catalytic activity/Vol] 92 U/L Critically high 15-37 [facility] Comment on above: Performed By: #### C MP ####[facility] Crujoozzqt5599[address] [place], [place] [address]Dr. Farhat Leal Bilirubin [Mass/Vol] 0.7 mg/dL Normal 0.2-1.0 [facility] Comment on above: Performed By: #### C MP ####[facility] Uuczvbttzs3040[address] [place], [place] [address]Dr. Farhat Leal Calcium [Mass/Vol] 7.8 mg/dL Critically low 8.5-10.1 Th e [facility] Comment on above: Performed By: #### C MP ####[facility] Rvlivhfsbl1669[address] [place], [place] [address]Dr. Farhat Leal Chloride [Moles/Vol] 99 mmol/L Normal 98-107 [facility] Comment on above: Performed By: #### C MP ####[facility] Hrwuvecauv496[address] [place], [place] [address]Dr. Farhat Leal CO2 [Moles/Vol] 30.9 mmol/L Normal 21.0-32.0 [facility] Comment on above: Performed By: #### C MP ####[facility] Uuoeohxhgy1460[address] [place], [place] [address]Dr. Farhat Leal Creatinine [Mass/Vol] 0.95 mg/dL Normal 0.70-1.30 [facility] Comment on above: Performed By: #### C MP ####[facility] Eazauqzfyg4745[address] [place], [place] [address]Dr. Farhat Leal EGFR-AF GRENADIAN >60 Normal >=60 [facility] Comment on above: Performed By: #### C MP ####[facility] Npmddemvrv3733 [place] [id number]. Farhat Leal EGFR-NON AF GRENADIAN >60 Normal >=60 [facility] Comment on above: Performed By: #### C MP ####[facility] Xkphjuxlnc7542 [place] [id number]. Farhat Leal Globulin (S) [Mass/Vol] 3.9 g/dL Normal [facility] Comment on above: Performed By: #### C MP ####[facility] Hgvejvequh0240 [place] [address]Dr. Farhat Leal Glucose [Mass/Vol] 124 mg/dL Critically high 74-106 [facility] Comment on above: Performed By: #### C MP ####[facility] Rkouqrazsc6038[address] [place], [place] [address]Dr. Farhat Leal Potassium [Moles/Vol] 5.9 mmol/L Critically high 3.5-5.1 [facility] Comment on above: Performed By: #### C MP ####[facility] Hhtwwaqiez114[address] [place], [place] [address]Dr. Farhat Leal Protein [Mass/Vol] 5.8 g/dL Critically low 6.4-8.2 [facility] Comment on above: Performed By: #### C MP ####[facility] Emuffpvgcd685[address] [place], [place] [address]Dr. Farhat Leal Sodium [Moles/Vol] 132 mmol/L Critically low 136-145 [facility] Comment on above: Performed By: #### C MP ####[facility] Jgyvuvwtkd365[address] [place], [place] [id number]. Farhat Leal Urea nitrogen [Mass/Vol] 18.0 mg/dL Normal 7.0-18.0 [facility] Comment on above: Performed By: #### C MP ####[facility] Shmrglnqvg466[address] [place], [place] [id number]. Farhat Leal Urea nitrogen/Creatinine [Mass ratio] 18.9 mg/mg Normal [facility] Comment on above: Performed By: #### C MP ####[facility] Lzjarcsjbk2012 [place] [address]Dr. Farhat Leal INR (POC)on 01-12-2022 INR Coag (PPP) [Relative time] 2.6 {INR} High 0.8 - 1.2 [facility] Internal Quality Check Acceptable Cl [facility] ACID FAST SMEAR AND CXon Acid Fast Culture Negative Normal [facility] Comment on above: Result Comment: No a abdiel fast bacilli isolated after 6 weeks. Performed By: #### A FB ####[facility] Fgcineramj5465[address] [place], [place] [address]Dr. Farhat Leal Acid Fast Smear Negative Normal [facility] Comment on above: Performed By: #### A FB ####[facility] Rgxkqwjsuc17[address] [place], [place] [address]Dr. Farhat Leal [employer] Specimen Processing Direct Inoculation Normal [facility] Comment on above: Performed By: #### A FB ####[facility] Hdsaffpqhp132[address] [place], [place] [id number]. Farhat Leal ACID FAST SMEAR AND CXon Acid Fast Culture Negative Normal [facility] Comment on above: Result Comment: No a abdiel fast bacilli isolated after 6 weeks. Performed By: #### A FB ####[facility] Bjhoaavwbv267[address] [place], [place] [address]Dr. Farhat Leal Acid Fast Smear Negative Normal [facility] Comment on above: Performed By: #### A FB ####[facility] Xsvppvilcn449[address] [place], [place] [address]Dr. Farhat Leal [employer] Specimen Processing Tissue Grinding [facility] Comment on above: Performed By: #### A FB ####[facility] Hhwzuroahl165[address] [place], [place] [address]Dr. Farhat Leal FUNGAL CULTUREon 01-02-2022 Fungus (Mycology) Culture Final report Normal [facility] Comment on above: Performed By: #### C XFUN ####[facility] Uriyxpnxjt362[address] [place], [place] [address]Dr. Farhat Lael Fungus Stain Final report Normal [facility] Comment on above: Performed By: #### C XFUN ####[facility] Bqclkliurs[address] [place] [address]. Farhat Leal Result 1 Comment Normal [facility] Comment on above: Result Comment: ANNI/ Calcofluor preparation: no fungus observed. Performed By: #### C XFUN ####[facility] Wsicrtspmc15[address] [place], [place] [address]Dr. Farhat Leal Result Comment: No y east or mold isolated after 4 weeks. FK506 (TACROLIMUS) WHOLE BLO ODon 12-31-2021 Tacrolimus (FK506), Blood 7.7 ng/mL Normal 2.0-20.0 [facility] Comment on above: Result Comment: Trou gh (immediately following transplant) 15.0 . Trough (steady state, 2 weeks or more after transplant): 3.0 - 8.0 . Performed by LC-MS/MS technology. Performed By: #### F K506T ####[facility] Flhuacwqub[address] [place], [place] [address]Dr. Farhat Leal HEMOGRAM AND PLATELon 2021 Hematocrit (Bld) [Volume fraction] 27.1 % Critically low 42.0-54.0 [facility] Comment on above: Performed By: #### H H ####[facility] Wtz[address]uxcmp[address] [place] [address]. Farhat Leal Hemoglobin (Bld) [Mass/Vol] 8.7 g/dL Critically low 14.0-18.0 [facility] Comment on above: Performed By: #### H H ####[facility] Oqtojtnicl[address] [place], [place] [address]Dr. Farhat Leal MCH (RBC) [Entitic mass] 30.3 pg Normal 25.9-34.0 [facility] Comment on above: Performed By: #### H H ####[facility] Xatepelaxu8417[address] [place], [place] [address]Dr. Farhat Leal MCHC (RBC) [Mass/Vol] 32.1 g/dL Normal 29.9-35.2 [facility] Comment on above: Performed By: #### H H ####[facility] Whfgphzusa55[address] [place] [id number]. Farhat Leal MCV (RBC) [Entitic vol] 94.4 fL Critically high 80.0-94.0 [facility] Comment on above: Performed By: #### H H ####[facility] Nrgewxegrn2527 [place] [id number]. aFrhat Elvis PLT 355 103/ul Normal 150-450 [facility] Comment on above: Performed By: #### H H ####[facility] Ntxrgyyrkt9275 [place] [id number]. Farhat Leal RBC 2.87 106/ul Critically low 4.70-6.10 [facility] Comment on above: Performed By: #### H H ####[facility] Torbzvdgcl2131 [place] [address]Dr. Farhat Leal WBC 6.0 103/ul Normal 4.0-11.0 [facility] Comment on above: Performed By: #### H H ####[facility] Ibqeexncfa6346 [place] [id number]. Farhat Leal PHOSPHORUSon 12-29-2021 Phosphate [Mass/Vol] 2.5 mg/dL Critically low 2.6-4.7 [facility] Comment on above: Performed By: #### P HOS, CMP ####[facility] Oclbzkxggh8351 [place] [address]DrSkylar Leal PROF 14(COMP METB)on 022 Albumin [Mass/Vol] 1.7 g/dL Critically low 3.4-5.0 [facility] Comment on above: Performed By: #### P HOS, CMP ####[facility] Djerolkbbd2072 [place] [address]Dr. Farhat Leal Albumin/Globulin [Mass ratio] 0.5 {ratio} Normal [facility] Comment on above: Performed By: #### P HOS, CMP ####[facility] Adxtbejchb9357 [place] [address]DrSkylar Leal ALP [Catalytic activity/Vol] 78 U/L Normal 46-116 [facility] Comment on above: Performed By: #### P HOS, CMP ####[facility] Rjizxhqdnb875[address] [place], [place] [address]Dr. Madelynlorri Leal ALT [Catalytic activity/Vol] 12 U/L Critically low 16-63 [facility] Comment on above: Performed By: #### P HOS, CMP ####[facility] Zqedrrkcrq29[address] [place], [place] [address]Dr. Farhat Leal Anion gap [Moles/Vol] 5.1 mmol/L Normal [facility] Comment on above: Performed By: #### P HOS, CMP ####[facility] Bxpijrfmon603[address] [place], [place] [address]Dr. Farhat Leal AST [Catalytic activity/Vol] 22 U/L Normal 15-37 [facility] Comment on above: Performed By: #### P HOS, CMP ####[facility] Ruewskejhe118[address] [place], [place] [address]Dr. Farhat Leal Bilirubin [Mass/Vol] 0.6 mg/dL Normal 0.2-1.0 [facility] Comment on above: Performed By: #### P HOS, CMP ####[facility] Dhllhrhexj8314[address] [place], [place] [address]Dr. Farhat Leal Calcium [Mass/Vol] 8.1 mg/dL Critically low 8.5-10.1 [facility] Comment on above: Performed By: #### P HOS, CMP ####[facility] Ufadxsnfpu36[address] [place], [place] [address]Dr. Farhat Leal Chloride [Moles/Vol] 100 mmol/L Normal 98-107 [facility] Comment on above: Performed By: #### P HOS, CMP ####[facility] Iwxcmweazs0933[address] [place], [place] [address]Dr. Farhat Leal CO2 [Moles/Vol] 34.2 mmol/L Critically high 21.0-32.0 [facility] Comment on above: Performed By: #### P HOS, CMP ####[facility] Razugvdsvp923[address] [place], [place] [address]Dr. Farhat Leal Creatinine [Mass/Vol] 0.92 mg/dL Normal 0.70-1.30 [facility] Comment on above: Performed By: #### P HOS, CMP ####[facility] Cccjhgozhl8080 [place] [address]Dr. Farhat Elvis EGFR-AF GRENADIAN >60 Normal >=60 [facility] Comment on above: Performed By: #### P HOS, CMP ####[facility] Clwsqaymsg0023 [place] [address]Dr. Farhat Elvis EGFR-NON AF GRENADIAN >60 Normal >=60 [facility] Comment on above: Performed By: #### P HOS, CMP ####[facility] Tizozmjpdd3625[address] [place], [place] [address]Dr. Farhat Leal Globulin (S) [Mass/Vol] 3.3 g/dL Normal [facility] Comment on above: Performed By: #### P HOS, CMP ####[facility] Lhtfehttup0820[address] [place], [place] [address]Dr. Farhat Leal Glucose [Mass/Vol] 116 mg/dL Critically high 74-106 [facility] Comment on above: Performed By: #### P HOS, CMP ####[facility] Hsvkvsnezy849[address] [place], [place] [address]Dr. Farhat Leal Potassium [Moles/Vol] 3.3 mmol/L Critically low 3.5-5.1 [facility] Comment on above: Performed By: #### P HOS, CMP ####[facility] Sdiiybkrrm88[address] [place], [place] [address]Dr. Farhat Leal Protein [Mass/Vol] 5.0 g/dL Critically low 6.4-8.2 [facility] Comment on above: Performed By: #### P HOS, CMP ####[facility] Nyqthqgilu29045[address] [place], [place] [address]Dr. Farhat Leal Sodium [Moles/Vol] 136 mmol/L Normal 136-[address] [facility] Comment on above: Performed By: #### P HOS, CMP ####[facility] Qaqnqsgwly392[address] [place], [place] [address]Dr. Farhat Leal Urea nitrogen [Mass/Vol] 14.0 mg/dL Normal 7.0-18.0 [facility] Comment on above: Performed By: #### P HOS, CMP ####[facility] Kfkadtdkfs730[address] [place], [place] [address]Dr. Farhat Leal Urea nitrogen/Creatinine [Mass ratio] 15.2 mg/mg Normal [facility] Comment on above: Performed By: #### P HOS, CMP ####[facility] Tbztxgepvg6657 [place] [address]Dr. Farhat Leal PROTIMEon 12-29-2021 INR Coag (PPP) [Relative time] 1.26 {INR} Normal [facility] Comment on above: Performed By: #### P T ####[facility] Nngskeaahj317[address] [place], [place] [address]Dr. Farhat Leal INR GUIDELINES SEE BELOW Normal [facility] Comment on above: Result Comment: MALINA RED INR: 2.0 - 3.0 CONDITIONS NOT LISTED BELOW 2.5 - 3.5 FOR PROSTHETIC HEART VALVE REPLACEMENT 2.5 - 3.5 RECURRENT THROMBOSIS Performed By: #### P T ####[facility] Yypchnyosg87[address] [place], [place] [address]Dr. Farhat Leal PT Coag (PPP) [Time] 13.4 s Critically high 9.0-11.6 [facility] Comment on above: Performed By: #### P T ####[facility] Jhpkbzqziv818[address] [place], [place] [address]DrSkylar Leal XR MODIFIED BARIUM SWALLOWon 12-25-2021 XR MODIFIED BARIUM SWALLOW Normal [facility] FUNGAL CULTUREon 12-24-2021 Fungus (Mycology) Culture Final report Normal [facility] Comment on above: Performed By: #### C XFUN ####[facility] Wvtnuwlmyh7[address] [place], [place] [address]DrSkylar Leal Fungus Stain Final report Normal [facility] Comment on above: Performed By: #### C XFUN ####[facility] Gokpohardu9026[address] [place], [place] [address]DrSkylar Leal Result 1 Comment Normal [facility] Comment on above: Result Comment: ANNI/ Calcofluor preparation: no fungus observed. Performed By: #### C XFUN ####[facility] Ekzvsnccef9724[address] [place], [place] [address]Dr. Farhat Leal Result Comment: No y east or mold isolated after 4 weeks. VANCOMYCIN TROUGHon 12-21-19 VANCOMYCIN TROUGH 14.4 ug/ml Normal 5.0-20.0 [facility] Comment on above: Performed By: #### V ANCT ####[facility] Ufkcwvflcm[address] [place], [place] [address]Dr. Farhat Elvis CBC AUTO DIFFon 12-14-2021 BASO # 0.0 103/ul Normal 0.0-0.1 [facility] Comment on above: Performed By: #### C BC ####[facility] Gseuoagkdr08[address] [place], [place] [address]Dr. Farhat Leal Basophils/100 WBC (Bld) 0.2 % Normal 0.2-2.0 [facility] Comment on above: Performed By: #### C BC ####[facility] Uaxcelinyv[address] [place], [place] [address]Dr. Madelynlorri Leal EO # 0.2 103/ul Normal 0.0-0.7 [facility] Comment on above: Performed By: #### C BC ####[facility] Otkuoecpar[address] [place], [place] [address]Dr. Farhat Leal Eosinophils/100 WBC (Bld) 2.1 % Normal 0.9-7.0 [facility] Comment on above: Performed By: #### C BC ####[facility] Gjrnbtvtca9[address] [place], [place] [address]Dr. Madelynlorri Leal Erythrocyte distribution width (RBC) [Ratio] 18.2 % Critically high 11.0-15.0 [facility] Comment on above: Performed By: #### C BC ####[facility] Bmunxnzkug225[address] [place], [place] [address]Dr. Farhat Leal Hematocrit (Bld) [Volume fraction] 25.8 % Critically low 42.0-54.0 [facility] Comment on above: Performed By: #### C BC ####[facility] Nidzefhczk1083 [place] [id number]. Farhat Leal Hemoglobin (Bld) [Mass/Vol] 8.0 g/dL Critically low 14.0-18.0 [facility] Comment on above: Performed By: #### C BC ####[facility] Onkfpdjqax7508 [place] [id number]. Farhat Leal IG # 0.08 10e3/ul Critically high 0.00-0.03 [facility] Comment on above: Performed By: #### C BC ####[facility] Eusbklwxbn9879 [place] [id number]. Farhat Leal IG % 0.7 % Critically high 0.0-0.5 [facility] Comment on above: Performed By: #### C BC ####[facility] Broustvnxe6149 [place] [address]Dr. Farhat Leal LYMPH # 0.9 103/ul Critically low 1.2-3.8 [facility] Comment on above: Performed By: #### C BC ####[facility] Kptgfqwlyr0054 [place] [id number]. Farhat Leal Lymphocytes/100 WBC (Bld) 8.7 % Critically low 20.5-60.0 [facility] Comment on above: Performed By: #### C BC ####[facility] Upuexxqnog4052 [place] [address]Dr. Farhat Leal MANUAL DIFF REQ NO Normal [facility] Comment on above: Performed By: #### C BC ####[facility] Aurtxocclb3[address] [place] [id number]. Farhat Leal MCH (RBC) [Entitic mass] 30.0 pg Normal 25.9-34.0 [facility] Comment on above: Performed By: #### C BC ####[facility] Fkbhcgeeib119[address] [place] [id number]. Farhat Leal MCHC (RBC) [Mass/Vol] 31.0 g/dL Normal 29.9-35.2 [facility] Comment on above: Performed By: #### C BC ####[facility] Suqsyuwemm0246 [place] [id number]. Farhat Leal MCV (RBC) [Entitic vol] 96.6 fL Critically high 80.0-94.0 [facility] Comment on above: Performed By: #### C BC ####[facility] Fqahpucrzi9616 [place] [id number]. Farhat Leal MONO # 0.7 103/ul Normal 0.3-0.8 [facility] Comment on above: Performed By: #### C BC ####[facility] Kxmjhzsbbh7951 [place] [id number]. Farhat Leal Monocytes/100 WBC (Bld) 6.7 % Normal 1.7-12.0 [facility] Comment on above: Performed By: #### C BC ####[facility] Qledebduji627[address] [place], [place] [address]Dr. Farhat Leal NEUT # 8.8 103/ul Critically high 1.4-6.5 [facility] Comment on above: Performed By: #### C BC ####[facility] Xocxwolirr[address] [place], [place] [id number]. Farhat Leal Neutrophils/100 WBC (Bld) 81.6 % Critically high 43.0-75.0 [facility] Comment on above: Performed By: #### C BC ####[facility] Qcaywzhhxf067[address] [place], [place] [id number]. Farhat Leal Platelet mean volume (Bld) [Entitic vol] 10.5 fL Normal 9.5-13.5 [facility] Comment on above: Performed By: #### C BC ####[facility] Swbehafekm3170 [place] [id number]. Farhat Leal PLT 285 103/ul Normal 150-450 [facility] Comment on above: Performed By: #### C BC ####[facility] Uegxobowup4702 [place] [id number]. Farhat Leal RBC 2.67 106/ul Critically low 4.70-6.10 [facility] Comment on above: Performed By: #### C BC ####[facility] Obyzgnsnpo07[address] [place] [address]Dr. Madelynlorri Elvis WBC 10.7 103/ul Normal 4.0-11.0 [facility] Comment on above: Performed By: #### C BC ####[facility] Hwhlrdnhia15[address] [place] [address]Dr. Farhat Leal PROF CHEM 8 (BAS METB)on Anion gap [Moles/Vol] 12.4 mmol/L Normal [facility] Comment on above: Performed By: #### B MP ####[facility] Mbvnxjuvbf49[address] [place], [place] [address]Dr. Farhat Leal Calcium [Mass/Vol] 7.8 mg/dL Critically low 8.5-10.1 [facility] Comment on above: Performed By: #### B MP ####[facility] Vefuupsucs4733[address] [place], [place] [address]Dr. Farhat Leal Chloride [Moles/Vol] 102 mmol/L Normal 98-107 [facility] Comment on above: Performed By: #### B MP ####[facility] Acyocvqcbn030[address] [place], [place] [address]Dr. Farhat Leal CO2 [Moles/Vol] 28.1 mmol/L Normal 21.0-32.0 [facility] Comment on above: Performed By: #### B MP ####[facility] Xpgwnswgln714[address] [place], [place] [address]Dr. Farhat Leal Creatinine [Mass/Vol] 1.24 mg/dL Normal 0.70-1.30 [facility] Comment on above: Performed By: #### B MP ####[facility] Sryiwiegtp028[address] [place], [place] [address]Dr. Farhat Leal EGFR-AF GRENADIAN >60 Normal >=60 [facility] Comment on above: Performed By: #### B MP ####[facility] Oubqimurii2025[address] [place], [place] [address]Dr. Farhat Leal EGFR-NON AF GRENADIAN 57 mL/min/1.73m2 Critically low >=60 [facility] Comment on above: Performed By: #### B MP ####[facility] Kuqifnxgwj0632 [place] [address]Dr. Farhat Leal Glucose [Mass/Vol] 296 mg/dL Critically high 74-106 [facility] Comment on above: Performed By: #### B MP ####[facility] Yaeitkhpav1093 [place] [id number]. Farhat Leal Potassium [Moles/Vol] 3.5 mmol/L Normal 3.5-5.1 [facility] Comment on above: Performed By: #### B MP ####[facility] Wdnstuncmk6251 [place] [address]Dr. Farhat Leal Sodium [Moles/Vol] 139 mmol/L Normal 136-[address] [facility] Comment on above: Performed By: #### B MP ####[facility] Ntunkmvxfe8086 [place] [address]Dr. Farhat Leal Urea nitrogen [Mass/Vol] 27.0 mg/dL Critically high 7.0-18.0 [facility] Comment on above: Performed By: #### B MP ####[facility] Hnbzwjowhn1825[address] [place], [place] [address]Dr. Farhat Leal Urea nitrogen/Creatinine [Mass ratio] 21.8 mg/mg Normal [facility] Comment on above: Performed By: #### B MP ####[facility] Usesarzaeu6[address] [place] [address]Dr. Farhat Leal PROTIMEon 12-14-2021 INR Coag (PPP) [Relative time] 3.36 {INR} Normal [facility] Comment on above: Performed By: #### P T ####[facility] Xilkhehmzu[address] [place], [place] [address]Dr. Farhat Leal INR GUIDELINES SEE BELOW Normal [facility] Comment on above: Result Comment: MALINA RED INR: 2.0 - 3.0 CONDITIONS NOT LISTED BELOW 2.5 - 3.5 FOR PROSTHETIC HEART VALVE REPLACEMENT 2.5 - 3.5 RECURRENT THROMBOSIS Performed By: #### P T ####[facility] Pebpsjredp84[address] [place], [place] [address]Dr. Farhat Leal PT Coag (PPP) [Time] 33.5 s Critically high 9.0-11.6 [facility] Comment on above: Performed By: #### P T ####[facility] Ptolqmsogc4553 [place], [place] [address]Uw. Farhat Leal XR CHEST 1 Von 12-14-2021 XR CHEST 1 V Normal [facility] No Panel Informationon 12-01 BLANK _ [facility] Implant Date 04/22/2012 [facility] CHECKon AMS Duration (ms) 5 of 8 [facility] AMS Fallback Rate (bpm) DDIR [facility] AV Delay Adaptive Paced Minimum (ms) 300 ms [facility] AV Delay Adaptive Rate Maximum (bpm) 130 {beats}/min [facility] AV Delay Adaptive Rate Minimum (bpm) 70 {beats}/min [facility] AV Delay Adaptive Sensed Minimum (ms) 300 ms [facility] AV Delay Paced (ms) 300 ms [facility] AV Delay Sensed (ms) 300 ms [facility] Jaciel LV Pacing Polarity Unknown [facility] Jaciel LV Sensing Polarity Unknown [facility] Jaciel RA Pacing Amplitude (volts) 2.4 V [facility] Jaciel RA Pacing Polarity BI [facility] Jaciel RA Pacing Pulse Width (ms) 0.4 ms [facility] Jaciel RA Sensing Amplitude (mvolts) AUTO [facility] Jaciel RA Sensing Blanking Period (ms) 56 ms [facility] Jaciel RA Sensing Polarity BI [facility] Jaciel RA Sensing Refractory Period (ms) AUTO [facility] Jaciel RV Pacing Amplitude (volts) 3.4 V [facility] Jaciel RV Pacing Polarity BI [facility] Jaciel RV Pacing Pulse Width (ms) 0.4 ms [facility] Jaciel RV Sensing Amplitude (mvolts) AUTO [facility] Jaciel RV Sensing Blanking Period (ms) 30 ms [facility] Jaciel RV Sensing Polarity BI [facility] Jaciel RV Sensing Refractory Period (ms) 250 ms [facility] Hysteresis Rate (bpm) 60 {beats}/min [facility] Lead1 Mfg SUZETTE [facility] Lead2 Mfg SUZETTE [facility] Location RA [facility] Location RV [facility] Lower Rate (bpm) 60 {beats}/min [facility] Max Sensor Rate (bmp) 130 {beats}/min [facility] Model 069288 Monika cortes [facility] Model 210993 [facility] Model 537198 [facility] Pacemaker Dependent? NO [facility] PM-Device Mfg BIO [facility] PM-PMT Intervention ON [facility] PM-PVC Intervention ON [facility] PM-Rate Modulation Acceleration Reaction 4 s [facility] PM-Rate Modulation Deceleration 0.5 m [facility] PM-Rate Modulation [place] 23 [facility] PM-Rate Modulation Threshold Medium [facility] RA Bipolar Impedance ohms 448 ohm [facility] Rhythm AF with controlled ventricular rate. [facility] RV Bipolar Impedance ohms 390 ohm [facility] Serial Number [id number] [facility] Serial Number [id number] [facility] Serial Number [id number] [facility] Thresh RA Sensing Amplitude (mvolts) 2.4 mV [facility] Thresh RV Capture Amplitude (volts) 1.8 V [facility] Thresh RV Capture Duration (ms) 0.4 ms [facility] Thresh RV Sensing Amplitude (mvolts) 2.4 mV [facility] Tracking Rate (bpm) 160 {beats}/min [facility] BNPon 11-28-2021 Natriuretic peptide B (Bld) [Mass/Vol] 02849.0 pg/mL Critically high <=1,800.0 [facility] Comment on above: Performed By: #### C MP, BNP, CRP ####[facility] Qopvqzhqvj38[address] [place], [place] [address]Dr. Farhat Leal CBC AUTO DIFFon 11-28-2021 BASO # 0.0 103/ul Normal 0.0-0.1 [facility] Comment on above: Performed By: #### C BC ####[facility] Imfatxyshd688[address] [place], [place] [address]Dr. Farhat Leal Basophils/100 WBC (Bld) 0.3 % Normal 0.2-2.0 [facility] Comment on above: Performed By: #### C BC ####[facility] Vvlywuidos365[address] [place], [place] [address]Dr. Farhat Leal EO # 0.1 103/ul Normal 0.0-0.7 [facility] Comment on above: Performed By: #### C BC ####[facility] Dfjljtetrl1271 [place] [address]Dr. Farhat Leal Eosinophils/100 WBC (Bld) 1.0 % Normal 0.9-7.0 [facility] Comment on above: Performed By: #### C BC ####[facility] Tjqrclworh899[address] [place], [place] [address]Dr. Farhat Leal Erythrocyte distribution width (RBC) [Ratio] 14.0 % Normal 11.0-15.0 [facility] Comment on above: Performed By: #### C BC ####[facility] Anvcwjzfuk45[address] [place], [place] [address]Dr. Farhat Leal Hematocrit (Bld) [Volume fraction] 27.6 % Critically low 42.0-54.0 [facility] Comment on above: Performed By: #### C BC ####[facility] Wmrymhcbmv86[address] [place], [place] [address]Dr. Farhat Leal Hemoglobin (Bld) [Mass/Vol] 9.0 g/dL Critically low 14.0-18.0 [facility] Comment on above: Performed By: #### C BC ####[facility] Lcsdfyvoep[address] [place], [place] [address]Dr. Farhat Leal IG # 0.12 10e3/ul Critically high 0.00-0.03 [facility] Comment on above: Performed By: #### C BC ####[facility] Qoavaayedv2239 [place] [address]Dr. Farhat Leal IG % 1.0 % Critically high 0.0-0.5 [facility] Comment on above: Performed By: #### C BC ####[facility] Rgstnabtva[address] [place], [place] [address]Dr. Farhat Leal LYMPH # 1.2 103/ul Normal 1.2-3.8 [facility] Comment on above: Performed By: #### C BC ####[facility] Pszjxpeted9[address] [place], [place] [address]Dr. Farhat Leal Lymphocytes/100 WBC (Bld) 9.9 % Critically low 20.5-60.0 [facility] Comment on above: Performed By: #### C BC ####[facility] Ihgyfuiyqn4643 [place] [id number]. Farhat Leal MANUAL DIFF REQ NO Normal [facility] Comment on above: Performed By: #### C BC ####[facility] Kdmhomqrfk1250 [place] [id number]. Farhat Leal MCH (RBC) [Entitic mass] 30.0 pg Normal 25.9-34.0 [facility] Comment on above: Performed By: #### C BC ####[facility] Eyqmdwxbdf[address] [place], [place] [address]Dr. Farhat Leal MCHC (RBC) [Mass/Vol] 32.6 g/dL Normal 29.9-35.2 [facility] Comment on above: Performed By: #### C BC ####[facility] Ipbitbgeex3202 [place] [address]Dr. Madelynlorri Leal MCV (RBC) [Entitic vol] 92.0 fL Normal 80.0-94.0 [facility] Comment on above: Performed By: #### C BC ####[facility] Adaxaxwulg9[address] [place] [address]Dr. Farhat Elvis MONO # 1.1 103/ul Critically high 0.3-0.8 [facility] Comment on above: Performed By: #### C BC ####[facility] Niwujtafdi2812 [place] [id number]. Farhat Leal Monocytes/100 WBC (Bld) 9.3 % Normal 1.7-12.0 [facility] Comment on above: Performed By: #### C BC ####[facility] Mosxkgtzcg9649 [place] [id number]. Madelynlorri Leal NEUT # 9.3 103/ul Critically high 1.4-6.5 [facility] Comment on above: Performed By: #### C BC ####[facility] Elbjbenpze[address] [place], [place] [address]Dr. Farhat Leal Neutrophils/100 WBC (Bld) 78.5 % Critically high 43.0-75.0 [facility] Comment on above: Performed By: #### C BC ####[facility] Yfhlykqwjo4988 [place] [id number]. Farhat Leal Platelet mean volume (Bld) [Entitic vol] 9.6 fL Normal 9.5-13.5 [facility] Comment on above: Performed By: #### C BC ####[facility] Ivhsjmfhbi8276 [place] [id number]. Farhat Leal PLT 357 103/ul Normal 150-450 [facility] Comment on above: Performed By: #### C BC ####[facility] Wydpbcxyde3625 [place] [id number]. Farhat Leal RBC 3.00 106/ul Critically low 4.70-6.10 [facility] Comment on above: Performed By: #### C BC ####[facility] Bwkwxitsvr2105 [place] [address]Dr. Farhat Leal WBC 11.8 103/ul Critically high 4.0-11.0 [facility] Comment on above: Performed By: #### C BC ####[facility] Pkvmbsxqkj0233 [place] [address]Dr. Farhat Leal CRPon 11-28-2021 CRP 20.9 mg/dL Critically high <=1.0 [facility] Comment on above: Performed By: #### C MP, BNP, CRP ####[facility] Uofkeseymj9[address] [place] [address]Dr. Farhat Leal CULTURE OTHERon 11-28-2021 CULTURE OTHER Normal [facility] Comment on above: Performed By: #### O THCX ####[facility] Xvqgcfhhkf16[address] [place] [address]Dr. Farhat Leal CULTURE OTHER Normal [facility] Comment on above: Performed By: #### O THCX ####[facility] Zqdyrjfelv[address] [place], [place] [address]Dr. Farhat Elvis PROF 14(COMP METB)on 022 Albumin [Mass/Vol] 1.4 g/dL Critically low 3.4-5.0 [facility] Comment on above: Performed By: #### C MP, BNP, CRP ####[facility] Zogabnraob1557 [place] [address]Dr. Farhat Leal Albumin/Globulin [Mass ratio] 0.4 {ratio} Normal [facility] Comment on above: Performed By: #### C MP, BNP, CRP ####[facility] Sbxyzlulcu7723 [place] [address]Dr. Farhat Leal ALP [Catalytic activity/Vol] 82 U/L Normal 46-116 [facility] Comment on above: Performed By: #### C MP, BNP, CRP ####[facility] Kzspkjhtky6502 [place] [address]Dr. Farhat Leal ALT [Catalytic activity/Vol] 20 U/L Normal 16-63 [facility] Comment on above: Performed By: #### C MP, BNP, CRP ####[facility] Nswlvwmasv4778 [place] [address]Dr. Farhat Leal Anion gap [Moles/Vol] 13.0 mmol/L Normal [facility] Comment on above: Performed By: #### C MP, BNP, CRP ####[facility] Nmthtkvzba666[address] [place], [place] [address]Dr. Farhat Leal AST [Catalytic activity/Vol] 33 U/L Normal 15-37 [facility] Comment on above: Performed By: #### C MP, BNP, CRP ####[facility] Bzxyzmhurz475[address] [place], [place] [address]Dr. Farhat Leal Bilirubin [Mass/Vol] 0.7 mg/dL Normal 0.2-1.0 [facility] Comment on above: Performed By: #### C MP, BNP, CRP ####[facility] Wfztgzytbm8644 [place] [address]Dr. Farhat Leal Calcium [Mass/Vol] 8.4 mg/dL Critically low 8.5-10.1 [facility] Comment on above: Performed By: #### C MP, BNP, CRP ####[facility] Wglewewtbs8410 [place] [address]Dr. Farhat Leal Chloride [Moles/Vol] 100 mmol/L Normal 98-107 [facility] Comment on above: Performed By: #### C MP, BNP, CRP ####[facility] Nxpjsitexs9745 [place] [address]Dr. Farhat Leal CO2 [Moles/Vol] 23.7 mmol/L Normal 21.0-32.0 [facility] Comment on above: Performed By: #### C MP, BNP, CRP ####[facility] Rqxufrchlr6026 [place] [address]Dr. Farhat Leal Creatinine [Mass/Vol] 1.70 mg/dL Critically high 0.70-1.30 [facility] Comment on above: Performed By: #### C MP, BNP, CRP ####[facility] Qtnpwnzzdu547[address] [place], [place] [address]Dr. Farhat Leal EGFR-AF GRENADIAN 48 mL/min/1.73m2 Critically low >=60 [facility] Comment on above: Performed By: #### C MP, BNP, CRP ####[facility] Lxipthfrkp816[address] [place], [place] [address]Dr. Farhat Leal EGFR-NON AF GRENADIAN 39 mL/min/1.73m2 Critically low >=60 [facility] Comment on above: Performed By: #### C MP, BNP, CRP ####[facility] Cqlhbbjxzl528[address] [place], [place] [address]Dr. Farhat Leal Globulin (S) [Mass/Vol] 3.6 g/dL Normal [facility] Comment on above: Performed By: #### C MP, BNP, CRP ####[facility] Ertwdxdwnj5275 [place] [address]Dr. Farhat Leal Glucose [Mass/Vol] 232 mg/dL Critically high 74-106 [facility] Comment on above: Performed By: #### C MP, BNP, CRP ####[facility] Tgqlmsnuae046[address] [place], [place] [address]Dr. Farhat Leal Potassium [Moles/Vol] 3.7 mmol/L Normal 3.5-5.1 [facility] Comment on above: Performed By: #### C MP, BNP, CRP ####[facility] Xjmrrzuifz3297 [place] [address]Dr. Farhat Leal Protein [Mass/Vol] 5.0 g/dL Critically low 6.4-8.2 [facility] Comment on above: Performed By: #### C MP, BNP, CRP ####[facility] Oqwzdfytir6223 [place] [address]Dr. Farhat Leal Sodium [Moles/Vol] 133 mmol/L Critically low 136-145 [facility] Comment on above: Performed By: #### C MP, BNP, CRP ####[facility] Nytpdqijbm5331 [place] [address]Dr. Farhat Leal Urea nitrogen [Mass/Vol] 52.0 mg/dL Critically high 7.0-18.0 [facility] Comment on above: Performed By: #### C MP, BNP, CRP ####[facility] Omwlkcwign005[address] [place], [place] [address]Dr. Farhat Leal Urea nitrogen/Creatinine [Mass ratio] 30.6 mg/mg Normal [facility] Comment on above: Performed By: #### C MP, BNP, CRP ####[facility] Savoiejivm169[address] [place], [place] [address]Dr. Farhat Leal PROTIMEon 11-28-2021 INR Coag (PPP) [Relative time] 1.29 {INR} Normal [facility] Comment on above: Performed By: #### P T ####[facility] Gqhqkrkqzz[address] [place], [place] [address]Dr. Farhat Leal INR GUIDELINES SEE BELOW Normal [facility] Comment on above: Result Comment: MALINA RED INR: 2.0 - 3.0 CONDITIONS NOT LISTED BELOW 2.5 - 3.5 FOR PROSTHETIC HEART VALVE REPLACEMENT 2.5 - 3.5 RECURRENT THROMBOSIS Performed By: #### P T ####[facility] Uyfndipkyk[address] [place], [place] [address]Dr. Farhat Leal PT Coag (PPP) [Time] 13.7 s Critically high 9.0-11.6 [facility] Comment on above: Performed By: #### P T ####[facility] Mwgnvqfpue[address] [place], [place] [id number]. Farhat Leal SED RATE WESTERGRENon 2021 SED RATE 77 mm/hr Critically high <=20 [facility] Comment on above: Performed By: #### S EDR ####[facility] Chvprooqjd44[address] [place], [place] [address]Dr. Farhat Leal XR CHEST 2 Von 11-28-2021 XR CHEST 2 V Normal [facility] BNPon 11-27-2021 Natriuretic peptide B (Bld) [Mass/Vol] 63336.0 pg/mL Critically high <=1,800.0 [facility] Comment on above: Performed By: #### B FLEX O WRITER OPERATOR, CMP, CRP ####[facility] Hhbpiikeeq13[address] [place], [place] [address]Dr. Farhat Leal CBC AUTO DIFFon 11-27-2021 BASO # 0.0 103/ul Normal 0.0-0.1 [facility] Comment on above: Performed By: #### C BC ####[facility] Nmvuxgqmok798[address] [place], [place] [address]Dr. Farhat Leal Basophils/100 WBC (Bld) 0.2 % Normal 0.2-2.0 [facility] Comment on above: Performed By: #### C BC ####[facility] Lhmarmfvlc[address] [place], [place] [address]Dr. Farhat Leal EO # 0.2 103/ul Normal 0.0-0.7 [facility] Comment on above: Performed By: #### C BC ####[facility] Iqimpgcohh[address] [place], [place] [address]Dr. Farhat Leal Eosinophils/100 WBC (Bld) 1.9 % Normal 0.9-7.0 [facility] Comment on above: Performed By: #### C BC ####[facility] Fjpsgaoewj[address] [place], [place] [address]Dr. Farhat Leal Erythrocyte distribution width (RBC) [Ratio] 13.9 % Normal 11.0-15.0 [facility] Comment on above: Performed By: #### C BC ####[facility] Mzrmbglnyp[address] [place], [place] [address]Dr. Farhat Leal Hematocrit (Bld) [Volume fraction] 28.7 % Critically low 42.0-54.0 [facility] Comment on above: Performed By: #### C BC ####[facility] Qmzugvwbak9639 [place] [address]Dr. Madelynlorri Leal Hemoglobin (Bld) [Mass/Vol] 9.3 g/dL Critically low 14.0-18.0 [facility] Comment on above: Performed By: #### C BC ####[facility] Tqahfaxfvh3678 [place] [address]Dr. Farhat Leal IG # 0.14 10e3/ul Critically high 0.00-0.03 [facility] Comment on above: Performed By: #### C BC ####[facility] Fpbmxnhcxc6867 [place] [address]Dr. Farhat Leal IG % 1.2 % Critically high 0.0-0.5 [facility] Comment on above: Performed By: #### C BC ####[facility] Bfsuzaolzo2974 [place] [address]DrSkylar Leal LYMPH # 1.1 103/ul Critically low 1.2-3.8 [facility] Comment on above: Performed By: #### C BC ####[facility] Tgvqcevxyl4791 [place] [address]DrSkylar Leal Lymphocytes/100 WBC (Bld) 9.4 % Critically low 20.5-60.0 [facility] Comment on above: Performed By: #### C BC ####[facility] Bayihuxkla4[address] [place] [address]DrSkylar Leal MANUAL DIFF REQ NO Normal [facility] Comment on above: Performed By: #### C BC ####[facility] Buuyigwltx3197 [place] [address]DrSkylar Leal MCH (RBC) [Entitic mass] 29.7 pg Normal 25.9-34.0 [facility] Comment on above: Performed By: #### C BC ####[facility] Dtaljzumlh3310 [place] [address]Dr. Farhat Leal MCHC (RBC) [Mass/Vol] 32.4 g/dL Normal 29.9-35.2 [facility] Comment on above: Performed By: #### C BC ####[facility] Zohxmsnawd56[address] [place] [id number]. Farhat Leal MCV (RBC) [Entitic vol] 91.7 fL Normal 80.0-94.0 [facility] Comment on above: Performed By: #### C BC ####[facility] Dwhcbyugqi3[address] [place] [id number]. Farhat Leal MONO # 1.1 103/ul Critically high 0.3-0.8 [facility] Comment on above: Performed By: #### C BC ####[facility] Dtszvurnqj2966 [place] [address]Dr. Farhat Elvis Monocytes/100 WBC (Bld) 9.7 % Normal 1.7-12.0 [facility] Comment on above: Performed By: #### C BC ####[facility] Hcedtppbpl3159 [place] [address]Dr. Farhat Leal NEUT # 9.2 103/ul Critically high 1.4-6.5 [facility] Comment on above: Performed By: #### C BC ####[facility] Bywtjyvyjp5884 [place] [id number]. Farhat Leal Neutrophils/100 WBC (Bld) 77.6 % Critically high 43.0-75.0 [facility] Comment on above: Performed By: #### C BC ####[facility] [address]iuartphl[address] [place] [id number]. Farhat Leal Platelet mean volume (Bld) [Entitic vol] 9.5 fL Normal 9.5-13.5 [facility] Comment on above: Performed By: #### C BC ####[facility] Htkbvizbcj1585 [place] [id number]. Farhat Elvis PLT 375 103/ul Normal 150-450 [facility] Comment on above: Performed By: #### C BC ####[facility] Zbhrnbhpnk75[address] [place] [id number]. Farhat Leal RBC 3.13 106/ul Critically low 4.70-6.10 [facility] Comment on above: Performed By: #### C BC ####[facility] Icpgyhmhpf3055 [place] [id number]. Farhat Leal WBC 11.8 103/ul Critically high 4.0-11.0 [facility] Comment on above: Performed By: #### C BC ####[facility] Zrgcbgcvnz2358 [place] [id number]. Farhat Leal CRPon 11-27-2021 CRP 24.5 mg/dL Critically high <=1.0 [facility] Comment on above: Performed By: #### B FLEX O WRITER OPERATOR, CMP, CRP ####[facility] Nkokovmmow[address] [place] [address]Dr. Farhat Leal CULTURE OTHERon 11-27-2021 CULTURE OTHER Normal [facility] Comment on above: Performed By: #### O THCX ####[facility] Epxjyolidu[address] [place] [address]Dr. Farhat Leal CULTURE OTHER Normal [facility] Comment on above: Performed By: #### O THCX ####[facility] Jnbbkeosum022[address] [place] [address]Dr. Farhat Leal CULTURE WOUNDon 11-27-2021 CULTURE WOUND Normal [facility] Comment on above: Performed By: #### W OUNDCX ####[facility] Fiqzenlzoz0[address] [place] [address]Dr. Farhat Leal POINT OF CARE GLUCOSEon 11-15 Glucose [Mass/Vol] 147 mg/dL Critically high 74-106 [facility] Comment on above: Performed By: #### P OCGLUC ####[facility] Cyrzeqvhny[address] [place], [place] [address]Dr. Farhat Leal PROF 14(COMP METB)on 022 Albumin [Mass/Vol] 1.4 g/dL Critically low 3.4-5.0 [facility] Comment on above: Performed By: #### B FLEX O WRITER OPERATOR, CMP, CRP ####[facility] Zdptgaoewl56[address] [place] [address]Dr. Farhat Leal Albumin/Globulin [Mass ratio] 0.4 {ratio} Normal [facility] Comment on above: Performed By: #### B FLEX O WRITER OPERATOR, CMP, CRP ####[facility] Zvsxcjftde0874 [place] [address]Dr. Farhat Leal ALP [Catalytic activity/Vol] 82 U/L Normal 46-116 [facility] Comment on above: Performed By: #### B FLEX O WRITER OPERATOR, CMP, CRP ####[facility] Behbtlieuc2408 [place] [address]Dr. Farhat Leal ALT [Catalytic activity/Vol] 22 U/L Normal 16-63 [facility] Comment on above: Performed By: #### B FLEX O WRITER OPERATOR, CMP, CRP ####[facility] Nsuszyivjz[address] [place], [place] [address]Dr. Farhat Leal Anion gap [Moles/Vol] 14.2 mmol/L Normal [facility] Comment on above: Performed By: #### B FLEX O WRITER OPERATOR, CMP, CRP ####[facility] Tguqdudxzs740[address] [place], [place] [address]Dr. Farhat Leal AST [Catalytic activity/Vol] 35 U/L Normal 15-37 [facility] Comment on above: Performed By: #### B FLEX O WRITER OPERATOR, CMP, CRP ####[facility] Qsfrywctsh794[address] [place], [place] [address]Dr. Farhat Leal Bilirubin [Mass/Vol] 0.7 mg/dL Normal 0.2-1.0 [facility] Comment on above: Performed By: #### B FLEX O WRITER OPERATOR, CMP, CRP ####[facility] Nqtbvujjqf03[address] [place], [place] [address]Dr. Farhat Leal Calcium [Mass/Vol] 8.2 mg/dL Critically low 8.5-10.1 [facility] Comment on above: Performed By: #### B FLEX O WRITER OPERATOR, CMP, CRP ####[facility] Izuaafqhwv[address] [place], [place] [address]Dr. Farhat Leal Chloride [Moles/Vol] 99 mmol/L Normal 98-107 [facility] Comment on above: Performed By: #### B FLEX O WRITER OPERATOR, CMP, CRP ####[facility] Tptydysasf55[address] [place] [address]Dr. Farhat Leal CO2 [Moles/Vol] 22.6 mmol/L Normal 21.0-32.0 [facility] Comment on above: Performed By: #### B FLEX O WRITER OPERATOR, CMP, CRP ####[facility] Jeozkhzxey3498 [place] [address]Dr. Farhat Leal Creatinine [Mass/Vol] 1.73 mg/dL Critically high 0.70-1.30 [facility] Comment on above: Performed By: #### B FLEX O WRITER OPERATOR, CMP, CRP ####[facility] Lxjnxvkxez9[address] [place], [place] [address]Dr. Farhat Leal EGFR-AF GRENADIAN 47 mL/min/1.73m2 Critically low >=60 [facility] Comment on above: Performed By: #### B FLEX O WRITER OPERATOR, CMP, CRP ####[facility] Kpzeuyfano67[address] [place], [place] [address]Dr. Farhat Leal EGFR-NON AF GRENADIAN 38 mL/min/1.73m2 Critically low >=60 [facility] Comment on above: Performed By: #### B FLEX O WRITER OPERATOR, CMP, CRP ####[facility] Hxhsiujrvq96[address] [place], [place] [address]Dr. Farhat Leal Globulin (S) [Mass/Vol] 3.7 g/dL Normal [facility] Comment on above: Performed By: #### B FLEX O WRITER OPERATOR, CMP, CRP ####[facility] Szdkoprlbr7806 [place] [address]Dr. Farhat Leal Glucose [Mass/Vol] 220 mg/dL Critically high 74-106 [facility] Comment on above: Performed By: #### B FLEX O WRITER OPERATOR, CMP, CRP ####[facility] Omygdruqty[address] [place], [place] [address]Dr. Farhat Leal Potassium [Moles/Vol] 3.8 mmol/L Normal 3.5-5.1 [facility] Comment on above: Performed By: #### B FLEX O WRITER OPERATOR, CMP, CRP ####[facility] Miljukotgj43[address] [place] [address]Dr. Farhat Leal Protein [Mass/Vol] 5.1 g/dL Critically low 6.4-8.2 [facility] Comment on above: Performed By: #### B FLEX O WRITER OPERATOR, CMP, CRP ####[facility] Fgzdabhcyo4921 [place] [address]Dr. Farhat Leal Sodium [Moles/Vol] 132 mmol/L Critically low 136-145 [facility] Comment on above: Performed By: #### B FLEX O WRITER OPERATOR, CMP, CRP ####[facility] Ijqgfmhtmx9726 [place] [address]Dr. Farhat Leal Urea nitrogen [Mass/Vol] 49.0 mg/dL Critically high 7.0-18.0 [facility] Comment on above: Performed By: #### B FLEX O WRITER OPERATOR, CMP, CRP ####[facility] Iqpwzbhjlj[address] [place], [place] [address]Dr. Farhat Leal Urea nitrogen/Creatinine [Mass ratio] 28.3 mg/mg Normal [facility] Comment on above: Performed By: #### B FLEX O WRITER OPERATOR, CMP, CRP ####[facility] Klyrcucpyr70[address] [place] [address]Dr. Farhat Leal PROTIMEon 11-27-2021 INR Coag (PPP) [Relative time] 1.25 {INR} Normal [facility] Comment on above: Performed By: #### P T ####[facility] Hvprdcqzmx39[address] [place], [place] [address]Dr. Farhat Leal INR GUIDELINES SEE BELOW Normal [facility] Comment on above: Result Comment: MALINA RED INR: 2.0 - 3.0 CONDITIONS NOT LISTED BELOW 2.5 - 3.5 FOR PROSTHETIC HEART VALVE REPLACEMENT 2.5 - 3.5 RECURRENT THROMBOSIS Performed By: #### P T ####[facility] Nboinhtfqw66[address] [place], [place] [address]Dr. Farhat Leal PT Coag (PPP) [Time] 13.3 s Critically high 9.0-11.6 [facility] Comment on above: Performed By: #### P T ####[facility] Jtrswrgekv8[address] [place], [place] [address]Dr. Farhat Leal SED RATE WESTERGRENon 2021 SED RATE 60 mm/hr Critically high <=20 [facility] Comment on above: Performed By: #### S EDR ####[facility] Zjnyatrmxt12[address] [place] [address]Dr. Farhat Leal VANCOMYCIN TROUGHon 11-28-19 VANCOMYCIN TROUGH 21.2 ug/ml Critically high 5.0-20.0 [facility] Comment on above: Performed By: #### V ANCT ####[facility] Upupzxmrvd5238 [place] [address]Dr. Farhat Leal XR CHEST 1 Von 11-27-2021 XR CHEST 1 V Normal [facility] BNPon 11-26-2021 Natriuretic peptide B (Bld) [Mass/Vol] 08975.0 pg/mL Critically high <=1,800.0 [facility] Comment on above: Performed By: #### B FLEX O WRITER OPERATOR, CRP, CMP ####[facility] Jhzonjzzvr8[address] [place], [place] [address]Dr. Farhat Leal CBC AUTO DIFFon 11-26-2021 BASO # 0.0 103/ul Normal 0.0-0.1 [facility] Comment on above: Performed By: #### C BC ####[facility] Unmoblygkt4261 [place] [address]Dr. Farhat Leal Basophils/100 WBC (Bld) 0.2 % Normal 0.2-2.0 [facility] Comment on above: Performed By: #### C BC ####[facility] Iqohbuzhal[address] [place] [address]Dr. Farhat Leal EO # 0.0 103/ul Normal 0.0-0.7 [facility] Comment on above: Performed By: #### C BC ####[facility] Awcrvbwfer020[address] [place], [place] [address]Dr. Farhat Leal Eosinophils/100 WBC (Bld) 0.3 % Critically low 0.9-7.0 [facility] Comment on above: Performed By: #### C BC ####[facility] Wwitoqafzg7883 [place] [address]Dr. Farhat Leal Erythrocyte distribution width (RBC) [Ratio] 13.9 % Normal 11.0-15.0 [facility] Comment on above: Performed By: #### C BC ####[facility] Lpjnroyvnj2673 [place] [address]Dr. Farhat Leal Hematocrit (Bld) [Volume fraction] 27.3 % Critically low 42.0-54.0 [facility] Comment on above: Performed By: #### C BC ####[facility] Gtxhrjwahq[address] [place], [place] [address]Dr. Farhat Leal Hemoglobin (Bld) [Mass/Vol] 8.8 g/dL Critically low 14.0-18.0 [facility] Comment on above: Performed By: #### C BC ####[facility] Fdwlnirbuo817[address] [place], [place] [address]Dr. Madelynlorri Elvis IG # 0.17 10e3/ul Critically high 0.00-0.03 [facility] Comment on above: Performed By: #### C BC ####[facility] Icrqngugiy307[address] [place], [place] [address]Dr. Farhat Leal IG % 1.2 % Critically high 0.0-0.5 [facility] Comment on above: Performed By: #### C BC ####[facility] Jzunpgwvlw44[address] [place], [place] [address]Dr. Farhat Leal LYMPH # 0.7 103/ul Critically low 1.2-3.8 [facility] Comment on above: Performed By: #### C BC ####[facility] Qbkwdgjfjn377[address] [place], [place] [address]Dr. Madelynlorri Leal Lymphocytes/100 WBC (Bld) 4.8 % Critically low 20.5-60.0 [facility] Comment on above: Performed By: #### C BC ####[facility] Fkcoyeaazl768[address] [place], [place] [address]Dr. Farhat Leal MANUAL DIFF REQ NO Normal [facility] Comment on above: Performed By: #### C BC ####[facility] Xiweyuhgan[address] [place] [id number]. Farhat Leal MCH (RBC) [Entitic mass] 29.9 pg Normal 25.9-34.0 [facility] Comment on above: Performed By: #### C BC ####[facility] Dnjpybjleb218[address] [place], [place] [address]Dr. Farhat Leal MCHC (RBC) [Mass/Vol] 32.2 g/dL Normal 29.9-35.2 [facility] Comment on above: Performed By: #### C BC ####[facility] Zxnzsytqrr[address] [place], [place] [id number]. Farhat Leal MCV (RBC) [Entitic vol] 92.9 fL Normal 80.0-94.0 [facility] Comment on above: Performed By: #### C BC ####[facility] Tiegwbzoep[address] [place], [place] [address]Dr. Farhat Leal MONO # 1.3 103/ul Critically high 0.3-0.8 [facility] Comment on above: Performed By: #### C BC ####[facility] Egygmqabqz14[address] [place], [place] [address]Dr. Farhat Leal Monocytes/100 WBC (Bld) 9.6 % Normal 1.7-12.0 [facility] Comment on above: Performed By: #### C BC ####[facility] Yldamaggcz[address] [place], [place] [id number]. Farhat Leal NEUT # 11.4 103/ul Critically high 1.4-6.5 [facility] Comment on above: Performed By: #### C BC ####[facility] Krfwawafgl[address] [place], [place] [id number]. Farhat Leal Neutrophils/100 WBC (Bld) 83.9 % Critically high 43.0-75.0 [facility] Comment on above: Performed By: #### C BC ####[facility] Qpiepukdhl230[address] [place], [place] [address]Dr. Farhat Leal Platelet mean volume (Bld) [Entitic vol] 9.6 fL Normal 9.5-13.5 [facility] Comment on above: Performed By: #### C BC ####[facility] Xdktrcroeu4806 [place] [id number]. Farhat Leal PLT 395 103/ul Normal 150-450 [facility] Comment on above: Performed By: #### C BC ####[facility] Itjytpkgnb0553 [place] [id number]. Farhat Leal RBC 2.94 106/ul Critically low 4.70-6.10 [facility] Comment on above: Performed By: #### C BC ####[facility] Padcejaksz0114 [place] [id number]. Farhat Leal WBC 13.6 103/ul Critically high 4.0-11.0 [facility] Comment on above: Performed By: #### C BC ####[facility] Qcgdymcgrn7264 [place] [address]Dr. Madelynlorri Leal CRPon 11-26-2021 CRP [Mass/Vol] mg/L Critically high <=1.0 [facility] Comment on above: Performed By: #### B FLEX O WRITER OPERATOR, CRP, CMP ####[facility] Gitgwxyrig20[address] [place] [address]Dr. Farhat Leal PROF 14(COMP METB)on 022 Albumin [Mass/Vol] 1.5 g/dL Critically low 3.4-5.0 [facility] Comment on above: Performed By: #### B FLEX O WRITER OPERATOR, CRP, CMP ####[facility] Dsfdsdxcmb7849 [place] [address]Dr. Farhat Leal Albumin/Globulin [Mass ratio] 0.4 {ratio} Normal [facility] Comment on above: Performed By: #### B FLEX O WRITER OPERATOR, CRP, CMP ####[facility] Pldhyczhyq[address] [place] [address]Dr. Farhat Leal ALP [Catalytic activity/Vol] 88 U/L Normal 46-116 [facility] Comment on above: Performed By: #### B FLEX O WRITER OPERATOR, CRP, CMP ####[facility] Awhhagxpqj4155 [place] [address]Dr. Farhat Leal ALT [Catalytic activity/Vol] 29 U/L Normal 16-63 [facility] Comment on above: Performed By: #### B FLEX O WRITER OPERATOR, CRP, CMP ####[facility] Malwtxcyng6638 [place] [address]Dr. Farhat Leal Anion gap [Moles/Vol] 13.3 mmol/L Normal [facility] Comment on above: Performed By: #### B FLEX O WRITER OPERATOR, CRP, CMP ####[facility] Ksfgfzfwqx127[address] [place], [place] [address]Dr. Farhat Leal AST [Catalytic activity/Vol] 32 U/L Normal 15-37 [facility] Comment on above: Performed By: #### B FLEX O WRITER OPERATOR, CRP, CMP ####[facility] Jhjywqwxxl99[address] [place], [place] [address]Dr. Farhat Leal Bilirubin [Mass/Vol] 0.6 mg/dL Normal 0.2-1.0 [facility] Comment on above: Performed By: #### B FLEX O WRITER OPERATOR, CRP, CMP ####[facility] Hdltifoozw45[address] [place], [place] [address]Dr. Farhat Leal Calcium [Mass/Vol] 8.0 mg/dL Critically low 8.5-10.1 [facility] Comment on above: Performed By: #### B FLEX O WRITER OPERATOR, CRP, CMP ####[facility] Vrmfubvqat7[address] [place], [place] [address]Dr. Farhat Leal Chloride [Moles/Vol] 98 mmol/L Normal 98-107 [facility] Comment on above: Performed By: #### B FLEX O WRITER OPERATOR, CRP, CMP ####[facility] Bilqvoejvp714[address] [place], [place] [address]Dr. Farhat Leal CO2 [Moles/Vol] 23.7 mmol/L Normal 21.0-32.0 [facility] Comment on above: Performed By: #### B FLEX O WRITER OPERATOR, CRP, CMP ####[facility] Qbqkppvjeb[address] [place], [place] [address]Dr. Farhat Leal Creatinine [Mass/Vol] 2.08 mg/dL Critically high 0.70-1.30 [facility] Comment on above: Performed By: #### B FLEX O WRITER OPERATOR, CRP, CMP ####[facility] Ljkuwywwgi95[address] [place] [address]Dr. Farhat Leal EGFR-AF GRENADIAN 38 mL/min/1.73m2 Critically low >=60 [facility] Comment on above: Performed By: #### B FLEX O WRITER OPERATOR, CRP, CMP ####[facility] Mggwmumfwc1474 [place] [address]Dr. Farhat Leal EGFR-NON AF GRENADIAN 31 mL/min/1.73m2 Critically low >=60 [facility] Comment on above: Performed By: #### B FLEX O WRITER OPERATOR, CRP, CMP ####[facility] Shmdrydtri77[address] [place] [address]Dr. Farhat Leal Globulin (S) [Mass/Vol] 3.7 g/dL Normal [facility] Comment on above: Performed By: #### B FLEX O WRITER OPERATOR, CRP, CMP ####[facility] Yihwojoswh99[address] [place], [place] [address]Dr. Farhat Elvis Glucose [Mass/Vol] 315 mg/dL Critically high 74-106 [facility] Comment on above: Performed By: #### B FLEX O WRITER OPERATOR, CRP, CMP ####[facility] Dalphozulc[address] [place], [place] [address]Dr. Farhat Leal Potassium [Moles/Vol] 4.0 mmol/L Normal 3.5-5.1 [facility] Comment on above: Performed By: #### B FLEX O WRITER OPERATOR, CRP, CMP ####[facility] Mnlwxyqjmr638[address] [place], [place] [address]Dr. Farhat Leal Protein [Mass/Vol] 5.2 g/dL Critically low 6.4-8.2 [facility] Comment on above: Performed By: #### B FLEX O WRITER OPERATOR, CRP, CMP ####[facility] Htddwleuru69[address] [place], [place] [address]Dr. Farhat Leal Sodium [Moles/Vol] 131 mmol/L Critically low 136-145 [facility] Comment on above: Performed By: #### B FLEX O WRITER OPERATOR, CRP, CMP ####[facility] Hcezxermlu[address] [place], [place] [address]Dr. Farhat Leal Urea nitrogen [Mass/Vol] 50.0 mg/dL Critically high 7.0-18.0 [facility] Comment on above: Performed By: #### B FLEX O WRITER OPERATOR, CRP, CMP ####[facility] Mrsxgflwwf432[address] [place], [place] [address]Dr. Farhat Leal Urea nitrogen/Creatinine [Mass ratio] 24.0 mg/mg Normal [facility] Comment on above: Performed By: #### B FLEX O WRITER OPERATOR, CRP, CMP ####[facility] Betxevfubk156[address] [place], [place] [address]Dr. Farhat Leal PROTIMEon 11-26-2021 INR Coag (PPP) [Relative time] 1.31 {INR} Normal [facility] Comment on above: Performed By: #### P T ####[facility] Wijttfwykm9[address] [place], [place] [address]Dr. Farhat Leal INR GUIDELINES SEE BELOW Normal [facility] Comment on above: Result Comment: MALINA RED INR: 2.0 - 3.0 CONDITIONS NOT LISTED BELOW 2.5 - 3.5 FOR PROSTHETIC HEART VALVE REPLACEMENT 2.5 - 3.5 RECURRENT THROMBOSIS Performed By: #### P T ####[facility] Vdpnwqvsug[address] [place], [place] [address]Dr. Farhat Leal PT Coag (PPP) [Time] 13.9 s Critically high 9.0-11.6 [facility] Comment on above: Performed By: #### P T ####[facility] Ieexmflamy94[address] [place], [place] [address]Dr. Farhat Leal SED RATE WESTERGRENon 2021 SED RATE 87 mm/hr Critically high <=20 [facility] Comment on above: Performed By: #### S EDR ####[facility] Rexrxqstvp018[address] [place], [place] [address]Dr. Farhat Leal BNPon 11-25-2021 Natriuretic peptide B (Bld) [Mass/Vol] 91342.0 pg/mL Critically high <=1,800.0 [facility] Comment on above: Performed By: #### C MP, BNP, CRP ####[facility] Iojhydkfbq239[address] [place], [place] [address]Dr. Farhat Leal CBC AUTO DIFFon 11-25-2021 BASO # 0.0 103/ul Normal 0.0-0.1 [facility] Comment on above: Performed By: #### C BC ####[facility] Ifssvdasfi1797 [place] [address]Dr. Farhat Leal Basophils/100 WBC (Bld) 0.4 % Normal 0.2-2.0 [facility] Comment on above: Performed By: #### C BC ####[facility] Gaqkcivkvd8346 [place] [address]Dr. Farhat Leal EO # 0.1 103/ul Normal 0.0-0.7 [facility] Comment on above: Performed By: #### C BC ####[facility] Yjajldogri[address] [place], [place] [address]Dr. Farhat Lela Eosinophils/100 WBC (Bld) 1.2 % Normal 0.9-7.0 [facility] Comment on above: Performed By: #### C BC ####[facility] Rqveyfetpb228[address] [place], [place] [address]Dr. Farhat Leal Erythrocyte distribution width (RBC) [Ratio] 13.7 % Normal 11.0-15.0 [facility] Comment on above: Performed By: #### C BC ####[facility] Ucmeqgnpwe618[address] [place], [place] [address]Dr. Farhat Leal Hematocrit (Bld) [Volume fraction] 29.6 % Critically low 42.0-54.0 [facility] Comment on above: Performed By: #### C BC ####[facility] Awdfyhysvi129[address] [place], [place] [address]Dr. Farhat Leal Hemoglobin (Bld) [Mass/Vol] 9.3 g/dL Critically low 14.0-18.0 [facility] Comment on above: Performed By: #### C BC ####[facility] Iiumlgizny250[address] [place], [place] [address]Dr. Farhat Leal IG # 0.15 10e3/ul Critically high 0.00-0.03 [facility] Comment on above: Performed By: #### C BC ####[facility] Znxqzgvmxt6445 [place] [id number]. Farhat Leal IG % 1.4 % Critically high 0.0-0.5 [facility] Comment on above: Performed By: #### C BC ####[facility] Tedefrkrcs8541 [place] [address]Dr. Farhat Elvis LYMPH # 0.8 103/ul Critically low 1.2-3.8 [facility] Comment on above: Performed By: #### C BC ####[facility] Pxrgjruoeo2097 [place] [address]Dr. Farhat Elvis Lymphocytes/100 WBC (Bld) 7.3 % Critically low 20.5-60.0 [facility] Comment on above: Performed By: #### C BC ####[facility] Wzlrqzflyj8178 [place] [address]Dr. Farhat Leal MANUAL DIFF REQ NO Normal [facility] Comment on above: Performed By: #### C BC ####[facility] Pdwxdtjsbc2694 [place] [address]Dr. Farhat Leal MCH (RBC) [Entitic mass] 29.3 pg Normal 25.9-34.0 [facility] Comment on above: Performed By: #### C BC ####[facility] Esezrmmyax[address] [place], [place] [address]Dr. Farhat Leal MCHC (RBC) [Mass/Vol] 31.4 g/dL Normal 29.9-35.2 [facility] Comment on above: Performed By: #### C BC ####[facility] Gryvlukldb7998 [place] [address]Dr. Farhat Elvis MCV (RBC) [Entitic vol] 93.4 fL Normal 80.0-94.0 [facility] Comment on above: Performed By: #### C BC ####[facility] Lfycwcbyhj177[address] [place], [place] [address]Dr. Madelynlorri Elvis MONO # 1.3 103/ul Critically high 0.3-0.8 [facility] Comment on above: Performed By: #### C BC ####[facility] Mxmczdzchd5485 [place] [address]Dr. Farhat Leal Monocytes/100 WBC (Bld) 12.3 % Critically high 1.7-12.0 [facility] Comment on above: Performed By: #### C BC ####[facility] Bftcltrrff7227 [place] [address]Dr. Farhat Leal NEUT # 8.4 103/ul Critically high 1.4-6.5 [facility] Comment on above: Performed By: #### C BC ####[facility] Ufsyikpnsy49[address] [place] [address]Dr. Farhat Leal Neutrophils/100 WBC (Bld) 77.4 % Critically high 43.0-75.0 [facility] Comment on above: Performed By: #### C BC ####[facility] Qodcpebnyj[address] [place], [place] [address]Dr. Farhat Leal Platelet mean volume (Bld) [Entitic vol] 9.8 fL Normal 9.5-13.5 [facility] Comment on above: Performed By: #### C BC ####[facility] Pbcfvamrug98[address] [place], [place] [address]Dr. Farhat Leal PLT 390 103/ul Normal 150-450 [facility] Comment on above: Performed By: #### C BC ####[facility] Ctifbnhhck9[address] [place], [place] [address]Dr. Farhat Leal RBC 3.17 106/ul Critically low 4.70-6.10 [facility] Comment on above: Performed By: #### C BC ####[facility] S[address]tvfwaqmy[address] [place], [place] [address]Dr. Farhat Leal WBC 10.9 103/ul Normal 4.0-11.0 [facility] Comment on above: Performed By: #### C BC ####[facility] Anezhzisuo[address] [place], [place] [address]Dr. Farhat Leal CRPon 11-25-2021 CRP 27.2 mg/dL Critically high <=1.0 [facility] [facility] [place] Comment on above: Performed By: #### C MP, BNP, CRP ####[facility] [address]otoosyny[address] [place] [address]Dr. Farhat Leal PROF 14(COMP METB)on 022 Albumin [Mass/Vol] 1.5 g/dL Critically low 3.4-5.0 [facility] Comment on above: Performed By: #### C MP, BNP, CRP ####[facility] Quzqgscbnt[address] [place] [address]Dr. Farhat Leal Albumin/Globulin [Mass ratio] 0.4 {ratio} Normal [facility] Comment on above: Performed By: #### C MP, BNP, CRP ####[facility] Faulsicsgh[address] [place] [address]Dr. Farhat Leal ALP [Catalytic activity/Vol] 86 U/L Normal 46-116 [facility] Comment on above: Performed By: #### C MP, BNP, CRP ####[facility] Jykcxtqkxw[address] [place], [place] [address]Dr. Farhat Leal ALT [Catalytic activity/Vol] 34 U/L Normal 16-63 [facility] Comment on above: Performed By: #### C MP, BNP, CRP ####[facility] Srbxpkclec[address] [place] [address]Dr. Farhat Leal Anion gap [Moles/Vol] 17.8 mmol/L Normal [facility] Comment on above: Performed By: #### C MP, BNP, CRP ####[facility] Qtkerhplrc0345 [place] [address]Dr. Farhat Leal AST [Catalytic activity/Vol] 48 U/L Critically high 15-37 [facility] Comment on above: Performed By: #### C MP, BNP, CRP ####[facility] Nvnbsbxkur[address] [place] [address]Dr. Farhat Leal Bilirubin [Mass/Vol] 0.8 mg/dL Normal 0.2-1.0 [facility] Comment on above: Performed By: #### C MP, BNP, CRP ####[facility] Igeljrnhgd56[address] [place] [address]Dr. Farhat Leal Calcium [Mass/Vol] 8.3 mg/dL Critically low 8.5-10.1 Th e [facility] Comment on above: Performed By: #### C MP, BNP, CRP ####[facility] Ntzlsubfzm[address] [place], [place] [address]Dr. Farhat Leal Chloride [Moles/Vol] 97 mmol/L Critically low 98-107 [facility] Comment on above: Performed By: #### C MP, BNP, CRP ####[facility] Ulvgmlneca8[address] [place], [place] [address]Dr. Farhat Leal CO2 [Moles/Vol] 23.0 mmol/L Normal 21.0-32.0 [facility] Comment on above: Performed By: #### C MP, BNP, CRP ####[facility] Zhhcnmwrpk8[address] [place], [place] [address]Dr. Farhat Leal Creatinine [Mass/Vol] 1.68 mg/dL Critically high 0.70-1.30 [facility] Comment on above: Performed By: #### C MP, BNP, CRP ####[facility] Azhchsuolc36[address] [place], [place] [address]Dr. Farhat Leal EGFR-AF GRENADIAN 48 mL/min/1.73m2 Critically low >=60 [facility] Comment on above: Performed By: #### C MP, BNP, CRP ####[facility] Pntwvcnasn27[address] [place], [place] [address]Dr. Farhat Leal EGFR-NON AF GRENADIAN 40 mL/min/1.73m2 Critically low >=60 [facility] Comment on above: Performed By: #### C MP, BNP, CRP ####[facility] Hrcnejlmlo244[address] [place], [place] [address]Dr. Farhat Leal Globulin (S) [Mass/Vol] 3.9 g/dL Normal [facility] Comment on above: Performed By: #### C MP, BNP, CRP ####[facility] Anmzwnxdbf339[address] [place], [place] [address]Dr. Madelynlorri Elvis Glucose [Mass/Vol] 282 mg/dL Critically high 74-106 [facility] Comment on above: Performed By: #### C MP, BNP, CRP ####[facility] Ucjjnrywhe3[address] [place] [address]Dr. Madelynlorri Leal Potassium [Moles/Vol] 4.8 mmol/L Normal 3.5-5.1 [facility] Comment on above: Performed By: #### C MP, BNP, CRP ####[facility] Ovcamztuhg14[address] [place] [address]Dr. Farhat Leal Protein [Mass/Vol] 5.4 g/dL Critically low 6.4-8.2 Th [facility] Comment on above: Performed By: #### C MP, BNP, CRP ####[facility] Rabugutodl70[address] [place] [address]Dr. Farhat Leal Sodium [Moles/Vol] 133 mmol/L Critically low 136-145 Th [facility] Comment on above: Performed By: #### C MP, BNP, CRP ####[facility] Xfmyouinko692[address] [place], [place] [address]Dr. Farhat Leal Urea nitrogen [Mass/Vol] 40.0 mg/dL Critically high 7.0-18.0 [facility] Comment on above: Performed By: #### C MP, BNP, CRP ####[facility] Valkjcbrrz697[address] [place], [place] [address]Dr. Farhat Leal Urea nitrogen/Creatinine [Mass ratio] 23.8 mg/mg Normal [facility] Comment on above: Performed By: #### C MP, BNP, CRP ####[facility] Obvfahkzxd029352 [address] [place], [place] [address]Dr. Farhat Leal PROTIMEon 11-25-2021 INR Coag (PPP) [Relative time] 1.48 {INR} Normal [facility] Comment on above: Performed By: #### P T ####[facility] Svgwdtnnxi55[address] [place], [place] [address]Dr. Farhat Leal INR GUIDELINES SEE BELOW Normal [facility] Comment on above: Result Comment: MALINA RED INR: 2.0 - 3.0 CONDITIONS NOT LISTED BELOW 2.5 - 3.5 FOR PROSTHETIC HEART VALVE REPLACEMENT 2.5 - 3.5 RECURRENT THROMBOSIS Performed By: #### P T ####[facility] Zgfrfefiqo4536[address] [place], [place] [address]Dr. Farhat Leal PT Coag (PPP) [Time] 15.6 s Critically high 9.0-11.6 [facility] Comment on above: Performed By: #### P T ####[facility] Txzhvhggxl3495[address] [place], [place] [address]Dr. Farhat Leal SED RATE WESTERGRENon 2021 SED RATE 76 mm/hr Critically high <=20 The [facility] Comment on above: Performed By: #### S EDR ####[facility] Nqpirdhoaj025[address] [place], [place] [address]Dr. Madelynlorri Leal BNPon 11-24-2021 Natriuretic peptide B (Bld) [Mass/Vol] 34879.0 pg/mL Critically high <=1,800.0 [facility] Comment on above: Performed By: #### B FLEX O WRITER OPERATOR, CMP, CRP ####[facility] Tpqinamrpn316[address] [place], [place] [address]Dr. Farhat Leal CBC AUTO DIFFon 11-24-2021 BASO # 0.0 103/ul Normal 0.0-0.1 [facility] Comment on above: Performed By: #### C BC ####[facility] Vnqmpshoag136[address] [place], [place] [address]Dr. Farhat Leal Basophils/100 WBC (Bld) 0.3 % Normal 0.2-2.0 [facility] Comment on above: Performed By: #### C BC ####[facility] Gjydjyfeqh357[address] [place], [place] [address]Dr. Farhat Leal EO # 0.2 103/ul Normal 0.0-0.7 [facility] Comment on above: Performed By: #### C BC ####[facility] Phqslpchrw530[address] [place], [place] [address]Dr. Farhat Leal Eosinophils/100 WBC (Bld) 1.2 % Normal 0.9-7.0 [facility] Comment on above: Performed By: #### C BC ####[facility] Prnidcfkjr014[address] [place], [place] [address]Dr. Farhat Leal Erythrocyte distribution width (RBC) [Ratio] 13.5 % Normal 11.0-15.0 [facility] Comment on above: Performed By: #### C BC ####[facility] Sgxjtzyvpc8[address] [place] [address]DrSkylar Leal Hematocrit (Bld) [Volume fraction] 31.1 % Critically low 42.0-54.0 [facility] Comment on above: Performed By: #### C BC ####[facility] Jrxcautfuu054[address] [place], [place] [address]DrSkylar Leal Hemoglobin (Bld) [Mass/Vol] 10.0 g/dL Critically low 14.0-18.0 [facility] Comment on above: Performed By: #### C BC ####[facility] Hedgxuzaor22[address] [place], [place] [address]DrSkylar Leal IG # 0.13 10e3/ul Critically high 0.00-0.03 [facility] Comment on above: Performed By: #### C BC ####[facility] Nlswwogfcl[address] [place], [place] [address]DrSkylar Leal IG % 1.0 % Critically high 0.0-0.5 [facility] Comment on above: Performed By: #### C BC ####[facility] Bxhskgxscx025[address] [place], [place] [address]DrSkylar Leal LYMPH # 0.7 103/ul Critically low 1.2-3.8 [facility] Comment on above: Performed By: #### C BC ####[facility] Raqxkwjzxa200[address] [place], [place] [address]DrSkylar Leal Lymphocytes/100 WBC (Bld) 4.9 % Critically low 20.5-60.0 [facility] Comment on above: Performed By: #### C BC ####[facility] Ccnkxbhpul187[address] [place], [place] [address]DrSkylar Leal MANUAL DIFF REQ NO Normal [facility] Comment on above: Performed By: #### C BC ####[facility] Zklyhwoyps668[address] [place], [place] [address]DrSkylar Leal MCH (RBC) [Entitic mass] 29.6 pg Normal 25.9-34.0 [facility] Comment on above: Performed By: #### C BC ####[facility] Jnklotkfab54[address] [place] [address]Dr. Farhat Leal MCHC (RBC) [Mass/Vol] 32.2 g/dL Normal 29.9-35.2 [facility] Comment on above: Performed By: #### C BC ####[facility] Diydgxgurw9[address] [place] [address]Dr. Farhat Leal MCV (RBC) [Entitic vol] 92.0 fL Normal 80.0-94.0 [facility] Comment on above: Performed By: #### C BC ####[facility] Oslavpihof9[address] [place], [place] [address]DrSkylar Leal MONO # 1.3 103/ul Critically high 0.3-0.8 [facility] Comment on above: Performed By: #### C BC ####[facility] Czjsfqesvn465[address] [place], [place] [address]Dr. Farhat Leal Monocytes/100 WBC (Bld) 9.6 % Normal 1.7-12.0 [facility] Comment on above: Performed By: #### C BC ####[facility] Lrzhfnmkgr354[address] [place], [place] [address]DrSkylar Leal NEUT # 11.2 103/ul Critically high 1.4-6.5 [facility] Comment on above: Performed By: #### C BC ####[facility] Vxcbwubfly1601[address] [place], [place] [address]Dr. Farhat Leal Neutrophils/100 WBC (Bld) 83.0 % Critically high 43.0-75.0 [facility] Comment on above: Performed By: #### C BC ####[facility] Jnuxybwigy98[address] [place], [place] [address]DrSkylar Leal Platelet mean volume (Bld) [Entitic vol] 9.5 fL Normal 9.5-13.5 [facility] Comment on above: Performed By: #### C BC ####[facility] Pipyexbmtj[address] [place], [place] [id number]. Farhat Leal PLT 395 103/ul Normal 150-450 [facility] Comment on above: Performed By: #### C BC ####[facility] Ieunzcvxvd5925 [place] [id number]. Farhat Leal RBC 3.38 106/ul Critically low 4.70-6.10 [facility] Comment on above: Performed By: #### C BC ####[facility] Ffijihiyde26[address] [place] [id number]. Farhat Leal WBC 13.4 103/ul Critically high 4.0-11.0 [facility] Comment on above: Performed By: #### C BC ####[facility] Xjqytezjqp7622 [place] [address]Dr. Farhat Leal CRPon 11-24-2021 CRP 27.8 mg/dL Critically high <=1.0 [facility] Comment on above: Performed By: #### B FLEX O WRITER OPERATOR, CMP, CRP ####[facility] Htsodnkkeh98[address] [place] [id number]. Farhat Leal CULTURE ANAEROBICon 11-25-19 22 CULTURE ANAEROBIC Culture Observations : NO GROWTH OF ANAEROBES AT 72 HOURS. [facility] Comment on above: Performed By: #### A NACX ####[facility] Aoqmtpersa5[address] [place] [id number]. Farhat Leal CULTURE ANAEROBIC Culture Observations : NO GROWTH OF ANAEROBES AT 72 HOURS. [facility] Comment on above: Performed By: #### A NACX ####[facility] Dfwgwabyqp8445 [place] [id number]. Farhat Leal CULTURE ANAEROBIC Culture Observations : No growth of anaerobes at 72 hours. [facility] Comment on above: Performed By: #### A NACX ####[facility] Noiokzoxog8859 [place] [id number]. Farhat Leal CULTURE ANAEROBIC Culture Observations : No growth of anaerobes at 72 hours. [facility] Comment on above: Performed By: #### A NACX ####[facility] Idaionfcau[address] [place], [place] [id number]. Farhat Leal CULTURE URINEon 11-24-2021 CULTURE URINE Culture Observations : NO GROWTH. Normal [facility] Comment on above: Performed By: #### U RCX ####[facility] Xodqihfgka377[address] [place], [place] [address]Dr. Madelynlorri Leal ECHOCARDIO M/2D COMPLETEon 1 ECHOCARDIO M/2D COMPLETE Normal [facility] ER URINE PROFILEon Bilirubin Ql (U) Negative Normal NEGATIVE [facility] Comment on above: Performed By: #### E RUR ####[facility] Heacvuexnm428[address] [place], [place] [address]Dr. Farhat Leal Clarity (U) CLEAR Normal CLEAR [facility] Comment on above: Performed By: #### E RUR ####[facility] Yhzmrisyum[address] [place], [place] [address]Dr. Farhat Leal Color (U) YELLOW Normal YELLOW [facility] Comment on above: Performed By: #### E RUR ####[facility] Jzviqzejpl[address] [place], [place] [address]Dr. Farhat Leal ERUAHD A micrscopic examination will be performed if indicated. Normal [facility] Comment on above: Performed By: #### E RUR ####[facility] Mvsezjtpil418[address] [place], [place] [address]Dr. Farhat Leal Glucose Ql (U) Negative Normal NEGATIVE [facility] Comment on above: Performed By: #### E RUR ####[facility] Dcgwbyzxwn923[address] [place], [place] [address]Dr. Madelynlorri Elvis Hemoglobin Ql (U) Negative Normal NEGATIVE The [facility] Comment on above: Performed By: #### E RUR ####[facility] Sfuirpsjof086[address] [place], [place] [address]Dr. Farhat Leal Ketones Ql (U) TRACE Abnormal NEGATIVE [facility] Comment on above: Performed By: #### E RUR ####[facility] Rgzfmuermy9525[address] [place], [place] [address]Dr. Farhat Leal LEUKOCYTES Negative Normal NEGATIVE [facility] Comment on above: Performed By: #### E RUR ####[facility] Nbjucsicae2750 [place] [address]Dr. Farhat Leal Nitrite Ql (U) Negative Normal NEGATIVE [facility] Comment on above: Performed By: #### E RUR ####[facility] Etwdwtesfy5429 [place] [address]Dr. Farhat Leal pH (U) 5.5 [pH] Normal 5-9 [facility] Comment on above: Performed By: #### E RUR ####[facility] Aewqcukhrs9[address] [place], [place] [address]Dr. Farhat Leal SPEC GRAVITY 1.015 Normal 1.005-<=1.02 5 [facility] Comment on above: Performed By: #### E RUR ####[facility] Vbvegoliyk8312[address] [place], [place] [address]Dr. Farhat Leal UA PROTEIN Negative Normal NEGATIVE/ TRACE [facility] Comment on above: Performed By: #### E RUR ####[facility] Gftipydqos027[address] [place], [place] [address]Dr. Farhat Leal UR MICRO IND NOT INDICATED Normal [facility] Comment on above: Performed By: #### E RUR ####[facility] Jzkuwijisi05[address] [place], [place] [address]Dr. Farhat Leal Urobilinogen Qn (U) 0.2 {Boyd'U}/dL Normal 0.2 - 1. 0 [facility] Comment on above: Performed By: #### E RUR ####[facility] Xvacehvljr818[address] [place], [place] [address]Dr. Farhat Leal GRAM STAINon 11-24-2021 DIPHTHEROIDS Normal [facility] Comment on above: Performed By: #### G STAIN ####[facility] Lroqijtfjb307[address] [place], [place] [address]Dr. Farhat Leal EPITHELIALS Normal [facility] Comment on above: Performed By: #### G STAIN ####[facility] Lkyitvgyii9[address] [place], [place] [address]Dr. Farhat Leal FUNGAL ELEMENTS Normal [facility] Comment on above: Performed By: #### G STAIN ####[facility] Lpvelsmvek84[address] [place] [address]Dr. Farhat Leal GRAM NEG BACILLI Normal [facility] Comment on above: Performed By: #### G STAIN ####[facility] Jbiqkxakgd4737 [place] [address]Dr. Farhat Leal GRAM NEG DIPPLOCOCCI Normal [facility] Comment on above: Performed By: #### G STAIN ####[facility] Uhfdokxkjv9147 [place] [address]Dr. Farhat Leal GRAM POS BACILLI Normal [facility] Comment on above: Performed By: #### G STAIN ####[facility] Eiocicnkom[address] [place], [place] [address]Dr. Farhat Leal GRAM POSITIVE COCCI FEW Normal [facility] Comment on above: Performed By: #### G STAIN ####[facility] Bzlsytivfc24[address] [place], [place] [address]Dr. Farhat Leal GRAM STAIN SOURCE RT ACHILLES TENDON Normal [facility] Comment on above: Performed By: #### G STAIN ####[facility] Jzhogrxhdr5219 [place] [address]Dr. Farhat Leal GS_DIPTH Normal [facility] Comment on above: Performed By: #### G STAIN ####[facility] Tqtdesnrfa8049 [place] [address]Dr. Farhat Leal WBC RARE Normal [facility] Comment on above: Performed By: #### G STAIN ####[facility] Kwnuiptqth5[address] [place] [address]Dr. Farhat Leal COMMENTS NO ORGANISMS OBSERVED Normal [facility] Comment on above: Performed By: #### G STAIN ####[facility] Ndspabjhor48[address] [place] [address]Dr. Farhat Leal DIPHTHEROIDS Normal [facility] Comment on above: Performed By: #### G STAIN ####[facility] Lfrpjuqmjw13[address] [place] [address]Dr. Farhat Leal EPITHELIALS Normal [facility] Comment on above: Performed By: #### G STAIN ####[facility] Mpwoontqdk3087 [place] [id number]. Farhat Leal FUNGAL ELEMENTS Normal [facility] Comment on above: Performed By: #### G STAIN ####[facility] Fvtmfpdzhq6554 [place] [address]Dr. Farhat Leal GRAM NEG BACILLI Normal [facility] Comment on above: Performed By: #### G STAIN ####[facility] Sdebsolvgu3776 [place] [address]Dr. Farhat Leal GRAM NEG DIPPLOCOCCI Normal [facility] Comment on above: Performed By: #### G STAIN ####[facility] Nkorxvmfxi4074 [place] [address]Dr. Farhat Leal GRAM POS BACILLI Normal [facility] Comment on above: Performed By: #### G STAIN ####[facility] Aajzcxohub79[address] [place] [address]Dr. Farhat Leal GRAM POSITIVE COCCI Normal [facility] Comment on above: Performed By: #### G STAIN ####[facility] Ysyzegtcvf7986 [place] [address]Dr. Farhat Leal GRAM STAIN SOURCE RT CALCANEOUS Normal [facility] Comment on above: Performed By: #### G STAIN ####[facility] Ifsmbrvcai6099 [place] [address]Dr. Farhat Leal GS_DIPTH Normal [facility] Comment on above: Performed By: #### G STAIN ####[facility] Zxirvrmnbc7204 [place] [address]Dr. Farhat Leal WBC RARE Normal [facility] Comment on above: Performed By: #### G STAIN ####[facility] Woqipyrtno1814 [place] [address]Dr. Farhat Leal DIPHTHEROIDS Normal [facility] Comment on above: Performed By: #### G STAIN ####[facility] Fjsdomtknx4775 [place] [address]Dr. Farhat Leal EPITHELIALS Normal [facility] Comment on above: Performed By: #### G STAIN ####[facility] Vlauktcxem264[address] [place] [address]Dr. Farhat Leal FUNGAL ELEMENTS Normal [facility] Comment on above: Performed By: #### G STAIN ####[facility] Tmjezwifij7898 [place] [address]Dr. Farhat Leal GRAM NEG BACILLI FEW Normal [facility] Comment on above: Performed By: #### G STAIN ####[facility] Llhiftxsas0056 [place] [address]Dr. Farhat Leal GRAM NEG DIPPLOCOCCI Normal [facility] Comment on above: Performed By: #### G STAIN ####[facility] Pkltpohdmz97[address] [place], [place] [address]Dr. Farhat Leal GRAM POS BACILLI Normal [facility] Comment on above: Performed By: #### G STAIN ####[facility] Imsrjxjoew[address] [place], [place] [address]Dr. Farhat Leal GRAM POSITIVE COCCI FEW Normal [facility] Comment on above: Performed By: #### G STAIN ####[facility] Xyzxzsgivr68[address] [place], [place] [address]Dr. Farhat Leal GRAM STAIN SOURCE #2 Rt foot abscess Normal [facility] Comment on above: Performed By: #### G STAIN ####[facility] Gipvjaveio08[address] [place], [place] [address]Dr. Farhat Leal GS_DIPTH Normal [facility] Comment on above: Performed By: #### G STAIN ####[facility] Mtgwaajllq9[address] [place], [place] [address]Dr. Farhat Leal WBC RARE Normal [facility] Comment on above: Performed By: #### G STAIN ####[facility] Xorflnuiqz707[address] [place], [place] [address]Dr. Farhat Leal DIPHTHEROIDS Normal [facility] Comment on above: Performed By: #### G STAIN ####[facility] Zaloehjswk80[address] [place], [place] [address]Dr. Farhat Leal EPITHELIALS Normal [facility] Comment on above: Performed By: #### G STAIN ####[facility] Qujrajoapn[address] [place], [place] [address]Dr. Farhat Leal FUNGAL ELEMENTS Normal [facility] Comment on above: Performed By: #### G STAIN ####[facility] Frnlqvwgrd5132 [place] [address]Dr. Farhat Leal GRAM NEG BACILLI FEW Normal [facility] Comment on above: Performed By: #### G STAIN ####[facility] Fcfzbccusy5514 [place] [address]Dr. Farhat Leal GRAM NEG DIPPLOCOCCI Normal [facility] Comment on above: Performed By: #### G STAIN ####[facility] Rnimfaufxk1402 [place] [address]Dr. Farhat Leal GRAM POS BACILLI Normal [facility] Comment on above: Performed By: #### G STAIN ####[facility] Knufixddhp015[address] [place], [place] [address]Dr. Farhat Leal GRAM POSITIVE COCCI FEW Normal [facility] Comment on above: Performed By: #### G STAIN ####[facility] Jtajhnxxaz382[address] [place], [place] [address]Dr. Farhat Leal GRAM STAIN SOURCE #1 Rt foot abscess Normal [facility] Comment on above: Performed By: #### G STAIN ####[facility] Igxzxjqygx61[address] [place], [place] [address]Dr. Farhat Leal GS_DIPTH Normal [facility] Comment on above: Performed By: #### G STAIN ####[facility] Omrylqwbdr[address] [place], [place] [address]Dr. Farhat Leal WBC NONE SEEN Normal [facility] Comment on above: Performed By: #### G STAIN ####[facility] Ezthedxawh72[address] [place], [place] [address]Dr. Farhat Leal POINT OF CARE GLUCOSEon 10-1 0-2021 Glucose [Mass/Vol] 331 mg/dL Critically high 74-106 [facility] Comment on above: Performed By: #### P OCGLUC ####[facility] Lkhmxsgnkm97[address] [place] [address]Dr. Farhat Leal Glucose [Mass/Vol] 236 mg/dL Critically high 74-106 [facility] Comment on above: Performed By: #### P OCGLUC ####[facility] Uvusqgtcrc65[address] [place] [address]Dr. Farhat Leal PROF 14(COMP METB)on 022 Albumin [Mass/Vol] 1.6 g/dL Critically low 3.4-5.0 [facility] Comment on above: Performed By: #### B FLEX O WRITER OPERATOR, CMP, CRP ####[facility] Cjvvgovict27[address] [place] [address]Dr. Farhat Leal Albumin/Globulin [Mass ratio] 0.4 {ratio} Normal [facility] Comment on above: Performed By: #### B FLEX O WRITER OPERATOR, CMP, CRP ####[facility] Ytkvjlxnnw8744 [place] [address]Dr. aFrhat Leal ALP [Catalytic activity/Vol] 94 U/L Normal 46-116 [facility] Comment on above: Performed By: #### B FLEX O WRITER OPERATOR, CMP, CRP ####[facility] Ccljldnvgd5[address] [place] [address]Dr. Farhat Leal ALT [Catalytic activity/Vol] 49 U/L Normal 16-63 [facility] Comment on above: Performed By: #### B FLEX O WRITER OPERATOR, CMP, CRP ####[facility] Aclfikdqra9[address] [place] [address]Dr. Farhat Leal Anion gap [Moles/Vol] 12.5 mmol/L Normal [facility] Comment on above: Performed By: #### B FLEX O WRITER OPERATOR, CMP, CRP ####[facility] Ibsadmdght[address] [place] [address]Dr. Farhat Leal AST [Catalytic activity/Vol] 102 U/L Critically high 15-37 [facility] Comment on above: Performed By: #### B FLEX O WRITER OPERATOR, CMP, CRP ####[facility] Dzwifipyut[address] [place] [address]Dr. Farhat Leal Bilirubin [Mass/Vol] 0.8 mg/dL Normal 0.2-1.0 [facility] Comment on above: Performed By: #### B FLEX O WRITER OPERATOR, CMP, CRP ####[facility] Cynnpojgkz[address] [place] [address]Dr. Farhat Leal Calcium [Mass/Vol] 8.4 mg/dL Critically low 8.5-10.1 Th [facility] Comment on above: Performed By: #### B FLEX O WRITER OPERATOR, CMP, CRP ####[facility] Cgqplvnhow[address] [place], [place] [address]Dr. Farhat Leal Chloride [Moles/Vol] 96 mmol/L Critically low 98-107 [facility] Comment on above: Performed By: #### B FLEX O WRITER OPERATOR, CMP, CRP ####[facility] Kzndfixvhy[address] [place], [place] [address]Dr. Farhat Leal CO2 [Moles/Vol] 24.8 mmol/L Normal 21.0-32.0 [facility] Comment on above: Performed By: #### B FLEX O WRITER OPERATOR, CMP, CRP ####[facility] Hbbehdqaan0717[address] [place], [place] [address]Dr. Farhat Leal Creatinine [Mass/Vol] 1.36 mg/dL Critically high 0.70-1.30 [facility] Comment on above: Performed By: #### B FLEX O WRITER OPERATOR, CMP, CRP ####[facility] Nepegrqzlf178[address] [place], [place] [address]Dr. Farhat Leal EGFR-AF GRENADIAN >60 Normal >=60 [facility] Comment on above: Performed By: #### B FLEX O WRITER OPERATOR, CMP, CRP ####[facility] Ywhyaysjmh[address] [place], [place] [address]Dr. Farhat Leal EGFR-NON AF GRENADIAN 51 mL/min/1.73m2 Critically low >=60 [facility] Comment on above: Performed By: #### B FLEX O WRITER OPERATOR, CMP, CRP ####[facility] Snyxthyqgx056[address] [place], [place] [address]Dr. Farhat Elvis Globulin (S) [Mass/Vol] 4.1 g/dL Normal [facility] Comment on above: Performed By: #### B FLEX O WRITER OPERATOR, CMP, CRP ####[facility] Pagcelhihy[address] [place], [place] [address]Dr. Farhat Leal Glucose [Mass/Vol] 204 mg/dL Critically high 74-106 T [facility] Comment on above: Performed By: #### B FLEX O WRITER OPERATOR, CMP, CRP ####[facility] Groguhgbxl[address] [place] [address]Dr. Farhat Leal Potassium [Moles/Vol] 4.3 mmol/L Normal 3.5-5.1 [facility] Comment on above: Performed By: #### B FLEX O WRITER OPERATOR, CMP, CRP ####[facility] Crefnhjmis6[address] [place] [address]Dr. Farhat Leal Protein [Mass/Vol] 5.7 g/dL Critically low 6.4-8.2 Th [facility] Comment on above: Performed By: #### B FLEX O WRITER OPERATOR, CMP, CRP ####[facility] Ntvgqzkmqt30[address] [place] [address]Dr. Farhat Leal Sodium [Moles/Vol] 129 mmol/L Critically low 136-145 Th [facility] Comment on above: Performed By: #### B FLEX O WRITER OPERATOR, CMP, CRP ####[facility] Anwwsbqrzk32[address] [place], [place] [address]Dr. Farhat Leal Urea nitrogen [Mass/Vol] 41.0 mg/dL Critically high 7.0-18.0 [facility] Comment on above: Performed By: #### B FLEX O WRITER OPERATOR, CMP, CRP ####[facility] Xphyyiared854[address] [place], [place] [address]Dr. Farhat Leal Urea nitrogen/Creatinine [Mass ratio] 30.1 mg/mg Normal [facility] Comment on above: Performed By: #### B FLEX O WRITER OPERATOR, CMP, CRP ####[facility] Dmyduatwho7614[address] [place], [place] [address]Dr. Farhat Leal PROTIMEon 11-24-2021 INR Coag (PPP) [Relative time] 2.20 {INR} Normal [facility] Comment on above: Performed By: #### P T ####[facility] Fjwaldcann[address] [place], [place] [address]Dr. Farhat Leal INR GUIDELINES SEE BELOW Normal The [facility] Comment on above: Result Comment: MALINA RED INR: 2.0 - 3.0 CONDITIONS NOT LISTED BELOW 2.5 - 3.5 FOR PROSTHETIC HEART VALVE REPLACEMENT 2.5 - 3.5 RECURRENT THROMBOSIS Performed By: #### P T ####[facility] Qqvqgdahbb98[address] [place], [place] [address]Dr. Farhat Leal PT Coag (PPP) [Time] 22.6 s Critically high 9.0-11.6 [facility] Comment on above: Performed By: #### P T ####[facility] Bcsfcsmxke307[address] [place], [place] [address]Dr. Farhat Leal SED RATE [facility] 2021 SED RATE 80 mm/hr Critically high <=20 The [facility] Comment on above: Performed By: #### S EDR ####[facility] Ydzuofsuyz632[address] [place], [place] [address]Dr. Farhat Leal BLOOD CULTURE ID PANELon A. baumannii Not detected Normal NOT DETECTED [facility] Comment on above: Performed By: #### B CID2 ####[facility] Uohzuifafr328[address] [place], [place] [address]Dr. Farhat Elvis Bacteriodes fragilis Not detected Normal NOT DETECTED [facility] Comment on above: Performed By: #### B CID2 ####[facility] Chhcdrcohy726[address] [place], [place] [address]Dr. Farhat Elvis BCID CONTROLS PASSED Normal The [facility] Comment on above: Performed By: #### B CID2 ####[facility] Pnbmwhyvqu[address] [place], [place] [address]Dr. Farhat Elvis BCIDBTHD BLOOD CULTURE BOTTLE INFORMATION Normal [facility] Comment on above: Performed By: #### B CID2 ####[facility] Pspbvpyzyz927[address] [place], [place] [address]Dr. Farhat Leal BCIDHD1 ANTIMICROBIAL RESISTANCE GENES Normal [facility] Comment on above: Performed By: #### B CID2 ####[facility] Ksohybthbp[address] [place], [place] [address]Dr. Farhat Leal BCIDHD2 SEE BELOW Normal [facility] Comment on above: Result Comment: Note : Antimicrobial resitance can occur via multiple mechanisms. A Not Detected result for the [employer] antomicrobial resistance gene assays does not indicate antimicrobial susceptibility. Subculturing is required for species identification and susceptibility testing of isolates. Performed By: #### B CID2 ####[facility] Ir[address]zvlvmv24[address] [place] [id number]. Farhat Leal BCIDHD3 Positive Normal [facility] Comment on above: Performed By: #### B CID2 ####[facility] Ftczozarzi4[address] [place] [address]Dr. Farhat Leal BCIDHD4 Negative Normal [facility] Comment on above: Performed By: #### B CID2 ####[facility] Rvjqfbiwjc7[address] [place] [address]Dr. Farhat Leal BCIDHD5 YEAST Normal [facility] Comment on above: Performed By: #### B CID2 ####[facility] Smpgsxuvgn34[address] [place] [address]Dr. Farhat Leal Bottle Set: Set 1 Normal [facility] Comment on above: Performed By: #### B CID2 ####[facility] Ofdtpiqhdm25[address] [place] [address]Dr. Farhat Leal Bottle: Aerobic Normal [facility] Comment on above: Performed By: #### B CID2 ####[facility] Nmwmrylgug33[address] [place] [address]Dr. Farhat Leal C. neoformans/gattii Not detected Normal NOT DETECTED [facility] Comment on above: Performed By: #### B CID2 ####[facility] Uowkfjbczj50[address] [place] [address]Dr. Farhat Leal Disha albicans Not detected Normal NOT DETECTED [facility] Comment on above: Performed By: #### B CID2 ####[facility] Hwhdrasidp2[address] [place] [address]Dr. Farhat Leal Disha auris Not detected Normal NOT DETECTED The [facility] Comment on above: Performed By: #### B CID2 ####[facility] Haxhyqbuam67[address] [place] [address]Dr. Farhat Leal Disha glabrata Not detected Normal NOT DETECTED [facility] Comment on above: Performed By: #### B CID2 ####[facility] Gpezgqtcdd6961 [place] [address]Dr. Farhat Leal Disha Krusei Not detected Normal NOT DETECTED The [facility] Comment on above: Performed By: #### B CID2 ####[facility] Zfkqmqndct384[address] [place], [place] [address]Dr. Farhat Leal Disha Parapsilosis Not detected Normal NOT DETECTED [facility] Comment on above: Performed By: #### B CID2 ####[facility] Xdzwuelmcj06[address] [place], [place] [address]Dr. Yilan Leal Disha Tropicalis Not detected Normal NOT DETECTED [facility] Comment on above: Performed By: #### B CID2 ####[facility] Foxfwyjdqf33[address] [place], [place] [address]Dr. Farhat Leal CTX-M Resistant Gene Not Applicable Normal NOT DETECTE D [facility] Comment on above: Performed By: #### B CID2 ####[facility] Ngjefkuakl93[address] [place], [place] [address]Dr. Farhat Leal E. Cloacae complex Not detected Normal NOT DETECTED [facility] Comment on above: Performed By: #### B CID2 ####[facility] Pnakgwhmtt[address] [place], [place] [address]Dr. Yilorri Leal E. faecalis Not detected Normal NOT DETECTED The [facility] Comment on above: Performed By: #### B CID2 ####[facility] Vjorgoeiaw340[address] [place], [place] [address]Dr. Farhat Leal E. faecium Not detected Normal NOT DETECTED The [facility] Comment on above: Performed By: #### B CID2 ####[facility] Vvfjzkiqvj7[address] [place], [place] [address]Dr. Yilan Leal Enterobacteriaceae Not detected Normal NOT DETECTED [facility] Comment on above: Performed By: #### B CID2 ####[facility] Lctiryderu230[address] [place], [place] [address]Dr. Yilan Leal Escherichia coli Not detected Normal NOT DETECTED [facility] Comment on above: Performed By: #### B CID2 ####[facility] Apocaphcmo088[address] [place], [place] [address]Dr. Yilan Leal H. influenzae Not detected Normal NOT DETECTED The [facility] Comment on above: Performed By: #### B CID2 ####[facility] Huuyupvxcw[address] [place] [address]Dr. Farhat Leal IMP Resistant Gene Not Applicable Normal NOT DETECTED [facility] Comment on above: Performed By: #### B CID2 ####[facility] Rbsjsjsyhe8371 [place] [id number]. Madelynlorri Leal K. oxytoca Not detected Normal NOT DETECTED [facility] Comment on above: Performed By: #### B CID2 ####[facility] Msutqtmeko4706 [place] [address]Dr. Farhat Leal K. pneumoniae Not detected Normal NOT DETECTED The [facility] Comment on above: Performed By: #### B CID2 ####[facility] Cuoojgnqfx[address] [place], [place] [address]Dr. Farhat Leal Klebsiella aerogenes Not detected Normal NOT DETECTED [facility] Comment on above: Performed By: #### B CID2 ####[facility] Btlvrzpebe808[address] [place], [place] [address]Dr. Farhat Leal KPC Resistant Gene Not Applicable Normal NOT DETECTED [facility] Comment on above: Performed By: #### B CID2 ####[facility] Fdhrisvllw95[address] [place], [place] [address]Dr. Farhat Leal List. monocytogenes Not detected Normal NOT DETECTED [facility] Comment on above: Performed By: #### B CID2 ####[facility] Uaxlrdbmqj6918[address] [place], [place] [address]Dr. Farhat Leal Mcr-1 Resistant Gene Not Applicable Normal NOT DETECTE D [facility] Comment on above: Performed By: #### B CID2 ####[facility] Zuwhephqjw8796 [place] [address]Dr. Farhat Leal mecA/C Not Applicable Normal NOT DETECTED [facility] Comment on above: Performed By: #### B CID2 ####[facility] Rwcmictwmc8758 [place] [address]Dr. Farhat Leal mecA/C MREJ Detected Abnormal NOT DETECTED The [facility] Comment on above: Performed By: #### B CID2 ####[facility] Xommcdykfn5684 [place] [address]Dr. Farhat Leal N. meningitidis Not detected Normal NOT DETECTED [facility] Comment on above: Performed By: #### B CID2 ####[facility] Welvsfegbl[address] [place], [place] [address]Dr. Farhat Leal NDM Resistant Gene Not Applicable Normal NOT DETECTED [facility] Comment on above: Performed By: #### B CID2 ####[facility] Cmmdzfgxdw3434[address] [place], [place] [address]Dr. Farhat Leal Oxa-48-like Not Applicable Normal NOT DETECTED The [facility] Comment on above: Performed By: #### B CID2 ####[facility] Bezvdhaiux[address] [place], [place] [address]Dr. Farhat Leal Proteus Not detected Normal NOT DETECTED [facility] Comment on above: Performed By: #### B CID2 ####[facility] Flzxzunffy2811[address] [place], [place] [address]Dr. Farhat Leal Pseud. aeruginosa Not detected Normal NOT DETECTED [facility] Comment on above: Performed By: #### B CID2 ####[facility] Frtkttpykp3710[address] [place], [place] [address]Dr. Farhat Leal S. maltophilia Not detected Normal NOT DETECTED [facility] Comment on above: Performed By: #### B CID2 ####[facility] Jbxlqxtqoq037[address] [place], [place] [address]Dr. Farhat Leal Salmonella Not detected Normal NOT DETECTED [facility] Comment on above: Performed By: #### B CID2 ####[facility] Hvabfmluno039[address] [place], [place] [address]Dr. Farhat Leal Seratia marcescens Not detected Normal NOT DETECTED [facility] Comment on above: Performed By: #### B CID2 ####[facility] Diavzflpel5936[address] [place], [place] [address]Dr. Farhat Leal Site: Rt Hand Normal [facility] Comment on above: Performed By: #### B CID2 ####[facility] Wsznwctrri27[address] [place], [place] [address]Dr. Farhat Leal Staph. aureus Detected Abnormal NOT DETECTED The [facility] Comment on above: Performed By: #### B CID2 ####[facility] Rozxncuxev0015[address] [place], [place] [address]Dr. Farhat Leal Staph. epidermidis Not detected Normal NOT DETECTED [facility] Comment on above: Performed By: #### B CID2 ####[facility] Damatsiexn080[address] [place], [place] [address]Dr. Farhat Leal Staph. lugdunensis Not detected Normal NOT DETECTED [facility] Comment on above: Performed By: #### B CID2 ####[facility] Qskbalxqya9[address] [place], [place] [address]Dr. Farhat Leal Staphylococcus Detected Abnormal NOT DETECTED [facility] Comment on above: Performed By: #### B CID2 ####[facility] Uyyjlcvhzb097[address] [place], [place] [address]Dr. Farhat Leal Strep. agalactiae Not detected Normal NOT DETECTED [facility] Comment on above: Performed By: #### B CID2 ####[facility] Towxnliper837[address] [place], [place] [address]Dr. Farhat Leal Strep. pneumoniae Not detected Normal NOT DETECTED [facility] Comment on above: Performed By: #### B CID2 ####[facility] Xcofujxdqr68[address] [place], [place] [address]Dr. Farhat Leal Strep. pyogenes Not detected Normal NOT DETECTED [facility] Comment on above: Performed By: #### B CID2 ####[facility] Slclxewgir613[address] [place], [place] [address]Dr. Farhat Leal Streptococcus Not detected Normal NOT DETECTED The [facility] Comment on above: Performed By: #### B CID2 ####[facility] Yvglyhrukd33[address] [place], [place] [address]Dr. Farhat Leal Teodoro/B Resist. Gene Not Applicable Normal NOT DETECTED [facility] Comment on above: Performed By: #### B CID2 ####[facility] Akcsxlkgcl4924[address] [place], [place] [address]Dr. Farhat Leal VIM Resistant Gene Not Applicable Normal NOT DETECTED [facility] Comment on above: Performed By: #### B CID2 ####[facility] Yvcfphdbde4141 [place] [address]Dr. Farhat Leal BNPon 11-23-2021 Natriuretic peptide B (Bld) [Mass/Vol] 81824.0 pg/mL Critically high <=1,800.0 [facility] Comment on above: Performed By: #### C MP, CMADM, BNP ####[facility] Xjkbayqbam3093 [place] [address]Dr. Farhat Leal CARDIAC AMANDA ADMITon 022 CK [Catalytic activity/Vol] 41 U/L Normal 39-308 [facility] Comment on above: Performed By: #### C MP, CMADM, BNP ####[facility] Sqgtuxxkoy6158 [place] [address]Dr. Farhat Leal CK.MB [Mass/Vol] 0.98 ng/mL Normal <=3.60 [facility] Comment on above: Performed By: #### C MP, CMADM, BNP ####[facility] Zkhtrljpcv9804 [place] [address]Dr. lorri Leal HSTROP 30.1 pg/mL Normal 4.0-76.1 [facility] Comment on above: Result Comment: CUT- OFF POINTS HAVE BEEN ESTABLISHED BASED ON THE FOURTH UNIVERSAL DEFINITIONS OF MYOCARDIALINFARCTION. THE UPPER REFERENCE LIMIT (URL) OF TROPONIN, DEFINED THE 99TH PERCENTILE OFcTnI DISTRIBUTION IN A REFERENCE POPULATION, HAS BEEN CONFIRMED THE DECISION THRESHOLDFOR MT DIAGNOSIS. Performed By: #### C MP, CMADM, BNP ####[facility] Dqsjkhexht5840 [place] [address]Dr. Farhat Leal VALERIA 160 ng/mL Critically high 16-96 The [facility] Comment on above: Performed By: #### C MP, CMADM, BNP ####[facility] Boiqajuwpz4329 [place] [address]Dr. Farhat Leal CBC AUTO DIFFon 11-23-2021 BASO # 0.0 103/ul Normal 0.0-0.1 [facility] Comment on above: Performed By: #### C BC ####[facility] Dcuspyavdz5683 [place] [id number]. Farhat Leal Basophils/100 WBC (Bld) 0.2 % Normal 0.2-2.0 [facility] Comment on above: Performed By: #### C BC ####[facility] Yisnrhbgmu2417 [place] [id number]. Farhat Leal EO # 0.0 103/ul Normal 0.0-0.7 [facility] Comment on above: Performed By: #### C BC ####[facility] Irrmxyfrol[address] [place], [place] [address]Dr. Farhat Leal Eosinophils/100 WBC (Bld) 0.1 % Critically low 0.9-7.0 [facility] Comment on above: Performed By: #### C BC ####[facility] Dcmvzdfvvn[address] [place], [place] [address]Dr. Farhat Leal Erythrocyte distribution width (RBC) [Ratio] 13.4 % Normal 11.0-15.0 [facility] Comment on above: Performed By: #### C BC ####[facility] Abwglfuffn[address] [place], [place] [address]Dr. Farhat Leal Hematocrit (Bld) [Volume fraction] 31.6 % Critically low 42.0-54.0 [facility] Comment on above: Performed By: #### C BC ####[facility] [address]ht[address] [place], [place] [id number]. Farhat Leal Hemoglobin (Bld) [Mass/Vol] 10.4 g/dL Critically low 14.0-18.0 [facility] Comment on above: Performed By: #### C BC ####[facility] Egqceevrpt[address] [place], [place] [address]Dr. Farhat Leal IG # 0.11 10e3/ul Critically high 0.00-0.03 [facility] Comment on above: Performed By: #### C BC ####[facility] Dxlytghnhy104[address] [place], [place] [address]Dr. Farhat Leal IG % 0.7 % Critically high 0.0-0.5 The [facility] Comment on above: Performed By: #### C BC ####[facility] Ekditnwztv2780 [place] [id number]. Farhat Leal LYMPH # 0.5 103/ul Critically low 1.2-3.8 The [facility] Comment on above: Performed By: #### C BC ####[facility] Uuqywkruig1689 [place] [id number]. Farhat Leal Lymphocytes/100 WBC (Bld) 2.8 % Critically low 20.5-60.0 [facility] Comment on above: Performed By: #### C BC ####[facility] Zewdjschkc2503 [place] [id number]. Farhat Leal MANUAL DIFF REQ NO Normal [facility] Comment on above: Performed By: #### C BC ####[facility] Xrifqsgsqd8915 [place] [id number]. Farhat Leal MCH (RBC) [Entitic mass] 29.8 pg Normal 25.9-34.0 [facility] Comment on above: Performed By: #### C BC ####[facility] Cwyyvaaiwx4788 [place] [id number]. Farhat Leal MCHC (RBC) [Mass/Vol] 32.9 g/dL Normal 29.9-35.2 [facility] Comment on above: Performed By: #### C BC ####[facility] Tgzgewnnvo2089 [place] [id number]. Farhat Leal MCV (RBC) [Entitic vol] 90.5 fL Normal 80.0-94.0 [facility] Comment on above: Performed By: #### C BC ####[facility] Wozknkehgv6096 [place] [id number] Leal MONO # 1.3 103/ul Critically high 0.3-0.8 The [facility] Comment on above: Performed By: #### C BC ####[facility] Tfxgfhhrxx9405 [place] [id number]. Farhat Leal Monocytes/100 WBC (Bld) 8.3 % Normal 1.7-12.0 [facility] Comment on above: Performed By: #### C BC ####[facility] Qemhqjuhll5665 [place] [id number]. Farhat Leal NEUT # 13.9 103/ul Critically high 1.4-6.5 [facility] Comment on above: Performed By: #### C BC ####[facility] Xpkvrspcil3454 [place] [id number] Farhat Leal Neutrophils/100 WBC (Bld) 87.9 % Critically high 43.0-75.0 [facility] Comment on above: Performed By: #### C BC ####[facility] Pqtbpqgshf9256 [place] [id number]. Farhat Leal Platelet mean volume (Bld) [Entitic vol] 9.3 fL Critically low 9.5-13.5 [facility] Comment on above: Performed By: #### C BC ####[facility] Vvwbgemuxy2372 [place] [id number]. Farhat Leal PLT 390 103/ul Normal 150-450 [facility] Comment on above: Performed By: #### C BC ####[facility] Epyklemqst9946 [place] [id number]. Farhat Leal RBC 3.49 106/ul Critically low 4.70-6.10 The [facility] Comment on above: Performed By: #### C BC ####[facility] Ssbkdshvlo0921 [place] [id number]. Farhat Leal WBC 15.9 103/ul Critically high 4.0-11.0 [facility] Comment on above: Performed By: #### C BC ####[facility] Dvfqgwpflb6810 [place] [id number]. Farhat Leal CT HEAD WO CONon 11-23-2021 CT HEAD WO CON Normal [facility] CULTURE BLOODon 11-23-2021 Microscopic examination of blood, culture Culture Observations: NO GROWTH AT 5 DAYS. Normal [facility] Comment on above: Performed By: #### B LDCX2 ####[facility] Vtrwgdmmfu2846 [place] [id number]. Farhat Elvis Covid-19 PCR (CVDTBH)on SARS-CoV-2 (COVID-19) RNA JOSH+probe Ql (Unsp spec) Not detected Normal NOT DETECTED [facility] Comment on above: Result [...] for this test is supported by the [employer] of Health and Human Service's declaration that [...] be used). Performed By: #### C VDTBH ####[facility] Zalcwylwiq[address] [place], [place] [address]DrSkylar Leal LACTATE/LACTIC ACIDon 2021 Lactate [Moles/Vol] 1.3 mmol/L Normal 0.4-1.9 [facility] Comment on above: Performed By: #### L ACT ####[facility] Zlbqybqiul[address] [place], [place] [address]DrSkylar Leal Lactate [Moles/Vol] 1.3 mmol/L Normal 0.4-1.9 [facility] Comment on above: Performed By: #### L ACT ####[facility] Wuceufxnao[address] [place], [place] [address]DrSkylar Leal POINT OF CARE GLUCOSEon Glucose [Mass/Vol] 252 mg/dL Critically high 74-106 [facility] Comment on above: Performed By: #### P OCGLUC ####[facility] Dtnlubphkj[address] [place], [place] [address]Dr. Farhat Leal PROF 14(COMP METB)on 022 Albumin [Mass/Vol] 1.6 g/dL Critically low 3.4-5.0 [facility] Comment on above: Performed By: #### C MP, CMADM, BNP ####[facility] Rqitqtixej0492 [place] [address]Dr. Farhat Leal Albumin/Globulin [Mass ratio] 0.4 {ratio} Normal [facility] Comment on above: Performed By: #### C MP, CMADM, BNP ####[facility] Btquhhovuy6792 [place] [address]Dr. Frahat Leal ALP [Catalytic activity/Vol] 98 U/L Normal 46-116 [facility] Comment on above: Performed By: #### C MP, CMADM, BNP ####[facility] Kzryckzixy67[address] [place] [address]Dr. Farhat Leal ALT [Catalytic activity/Vol] 52 U/L Normal 16-63 [facility] Comment on above: Performed By: #### C MP, CMADM, BNP ####[facility] Wzkgszobdt7404 [place] [address]Dr. Farhat Leal Anion gap [Moles/Vol] 9.8 mmol/L Normal [facility] Comment on above: Performed By: #### C MP, CMADM, BNP ####[facility] Vnvxnhdikx6620 [place] [address]Dr. Farhat Leal AST [Catalytic activity/Vol] 122 U/L Critically high 15-37 [facility] [facility] Comment on above: Performed By: #### C MP, CMADM, BNP ####[facility] Cvtpiewczd[address] [place] [address]Dr. Farhat Leal Bilirubin [Mass/Vol] 0.7 mg/dL Normal 0.2-1.0 [facility] Comment on above: Performed By: #### C MP, CMADM, BNP ####[facility] Xciednjkwe[address] [place] [address]Dr. Farhat Leal Calcium [Mass/Vol] 8.6 mg/dL Normal 8.5-10.[address] [facility] Comment on above: Performed By: #### C MP, CMADM, BNP ####[facility] Hkqbsixhap[address] [place] [address]Dr. Farhat Leal Chloride [Moles/Vol] 95 mmol/L Critically low 98-107 [facility] Comment on above: Performed By: #### C MP, CMADM, BNP ####[facility] Wsxhttltci4[address] [place] [address]Dr. Farhat Leal CO2 [Moles/Vol] 29.6 mmol/L Normal 21.0-32.0 [facility] Comment on above: Performed By: #### C MP, CMADM, BNP ####[facility] Woubmllmli7[address] [place] [address]Dr. Farhat Leal Creatinine [Mass/Vol] 1.49 mg/dL Critically high 0.70-1.30 [facility] Comment on above: Performed By: #### C MP, CMADM, BNP ####[facility] Lwsmfijkfs[address] [place], [place] [address]Dr. Farhat Leal EGFR-AF GRENADIAN 55 mL/min/1.73m2 Critically low >=60 [facility] Comment on above: Performed By: #### C MP, CMADM, BNP ####[facility] Hmlghzqkji[address] [place], [place] [address]Dr. Farhat Leal EGFR-NON AF GRENADIAN 46 mL/min/1.73m2 Critically low >=60 [facility] Comment on above: Performed By: #### C MP, CMADM, BNP ####[facility] Cgeeldezhx[address] [place] [address]Dr. Farhat Leal Globulin (S) [Mass/Vol] 4.3 g/dL Normal [facility] Comment on above: Performed By: #### C MP, CMADM, BNP ####[facility] Hajhpucmec8[address] [place] [address]Dr. Farhat Leal Glucose [Mass/Vol] 213 mg/dL Critically high 74-106 [facility] Comment on above: Performed By: #### C MP, CMADM, BNP ####[facility] Mbyldgofls5669 [place] [address]Dr. Farhat Leal Potassium [Moles/Vol] 4.4 mmol/L Normal 3.5-5.1 [facility] Comment on above: Performed By: #### C MP, CMADM, BNP ####[facility] Sptrwzgujg7107 [place] [address]Dr. Farhat Leal Protein [Mass/Vol] 5.9 g/dL Critically low 6.4-8.2 [facility] Comment on above: Performed By: #### C MP, CMADM, BNP ####[facility] Dyeonqxlww[address] [place], [place] [address]Dr. Farhat Leal Sodium [Moles/Vol] 130 mmol/L Critically low 136-145 [facility] Comment on above: Performed By: #### C MP, CMADM, BNP ####[facility] Hyefqotcgh174[address] [place], [place] [address]Dr. Farhat Leal Urea nitrogen [Mass/Vol] 46.0 mg/dL Critically high 7.0-18.0 [facility] Comment on above: Performed By: #### C MP, CMADM, BNP ####[facility] Cmuwtsozxy9[address] [place], [place] [address]Dr. Farhat Leal Urea nitrogen/Creatinine [Mass ratio] 30.9 mg/mg Normal [facility] Comment on above: Performed By: #### C MP, CMADM, BNP ####[facility] Lstkguqbji717[address] [place], [place] [address]Dr. Farhat Leal PROTIMEon 11-23-2021 INR Coag (PPP) [Relative time] 2.55 {INR} Normal [facility] Comment on above: Performed By: #### P TT, PT ####[facility] Plwpysznkt05[address] [place], [place] [address]Dr. Farhat Leal INR GUIDELINES SEE BELOW Normal [facility] Comment on above: Result Comment: MALINA RED INR: 2.0 - 3.0 CONDITIONS NOT LISTED BELOW 2.5 - 3.5 FOR PROSTHETIC HEART VALVE REPLACEMENT 2.5 - 3.5 RECURRENT THROMBOSIS Performed By: #### P TT, PT ####[facility] Cdkgdlngus3334 [place] [id number]. Farhat Leal PT Coag (PPP) [Time] 25.9 s Critically high 9.0-11.6 [facility] Comment on above: Performed By: #### P TT, PT ####[facility] Fwguekrxtm01[address] [place] [address]Dr. Farhat Leal PTTon 11-23-2021 aPTT Coag (Bld) [Time] 39.9 s Critically high 22.3-36. 2 [facility] Comment on above: Performed By: #### P TT, PT ####[facility] Wzyzxogusy73[address] [place], [place] [address]Dr. Farhat Leal XR CHEST 1 Von 11-23-2021 XR CHEST 1 V Normal [facility] XR HEEL RT 2Von 11-23-2021 XR HEEL RT 2V Normal [facility] XR FOOT RT MIN 3 VIEWSon XR FOOT RT MIN 3 VIEWS Normal [facility] US ARTERY LEG RTon US ARTERY LEG RT Normal [facility] CBC AUTO DIFFon 09-24-2021 BASO # 0.1 103/ul Normal 0.0-0.1 [facility] Comment on above: Performed By: #### C BC ####[facility] Ylqngtvnyc[address] [place], [place] [address]Dr. Farhat Leal Basophils/100 WBC (Bld) 0.7 % Normal 0.2-2.0 [facility] Comment on above: Performed By: #### C BC ####[facility] Ynjtehkirh54[address] [place], [place] [address]Dr. Farhat Leal EO # 0.3 103/ul Normal 0.0-0.7 [facility] Comment on above: Performed By: #### C BC ####[facility] Ivaedlphas16[address] [place], [place] [address]Dr. Farhat Leal Eosinophils/100 WBC (Bld) 3.9 % Normal 0.9-7.0 [facility] Comment on above: Performed By: #### C BC ####[facility] Pblwwqhdxq9732 [place] [address]Dr. Farhat Leal Erythrocyte distribution width (RBC) [Ratio] 12.6 % Normal 11.0-15.0 [facility] Comment on above: Performed By: #### C BC ####[facility] Rzekrqmdkf9832 [place] [address]Dr. Farhat Leal Hematocrit (Bld) [Volume fraction] 38.9 % Critically low 42.0-54.0 [facility] Comment on above: Performed By: #### C BC ####[facility] Dosnmhrsaw2413 [place] [address]Dr. Farhat Leal Hemoglobin (Bld) [Mass/Vol] 12.8 g/dL Critically low 14.0-18.0 [facility] Comment on above: Performed By: #### C BC ####[facility] Soywgxznmv257[address] [place], [place] [address]Dr. Farhat Leal IG # 0.10 10e3/ul Critically high 0.00-0.03 [facility] Comment on above: Performed By: #### C BC ####[facility] Ivyvtzqtqf885[address] [place], [place] [address]Dr. Farhat Leal IG % 1.2 % Critically high 0.0-0.5 [facility] Comment on above: Performed By: #### C BC ####[facility] Najsgdywjn854[address] [place], [place] [address]Dr. Farhat Leal LYMPH # 2.1 103/ul Normal 1.2-3.8 [facility] Comment on above: Performed By: #### C BC ####[facility] Xqidvrbgoz924[address] [place], [place] [address]Dr. Farhat Leal Lymphocytes/100 WBC (Bld) 25.9 % Normal 20.5-60.0 [facility] Comment on above: Performed By: #### C BC ####[facility] Gzlphoaxbb701[address] [place], [place] [address]Dr. Farhat Leal MANUAL DIFF REQ NO Normal [facility] Comment on above: Performed By: #### C BC ####[facility] Cxezsuysty9[address] [place] [id number]. Farhat Leal MCH (RBC) [Entitic mass] 31.1 pg Normal 25.9-34.0 [facility] Comment on above: Performed By: #### C BC ####[facility] Uzkkcmitmc8979 [place] [id number]. Farhat Leal MCHC (RBC) [Mass/Vol] 32.9 g/dL Normal 29.9-35.2 [facility] Comment on above: Performed By: #### C BC ####[facility] Qorqzmeiqm4056 [place] [id number]. Farhat Leal MCV (RBC) [Entitic vol] 94.6 fL Critically high 80.0-94.0 [facility] Comment on above: Performed By: #### C BC ####[facility] Uczbllojll798[address] [place], [place] [address]Dr. Madelynlorri Leal MONO # 1.2 103/ul Critically high 0.3-0.8 [facility] Comment on above: Performed By: #### C BC ####[facility] Zoxmdxelej250[address] [place], [place] [address]Dr. Madelynlorri Leal Monocytes/100 WBC (Bld) 14.1 % Critically high 1.7-12.0 [facility] Comment on above: Performed By: #### C BC ####[facility] Ugrwkpcozb159[address] [place], [place] [address]Dr. Farhat Leal NEUT # 4.4 103/ul Normal 1.4-6.5 [facility] Comment on above: Performed By: #### C BC ####[facility] Acsiopubig[address] [place], [place] [id number]. Madelynlorri Leal Neutrophils/100 WBC (Bld) 54.2 % Normal 43.0-75.0 [facility] Comment on above: Performed By: #### C BC ####[facility] Mktvzhoauz[address] [place], [place] [id number]. Farhat Leal Platelet mean volume (Bld) [Entitic vol] 9.9 fL Normal 9.5-13.5 [facility] Comment on above: Performed By: #### C BC ####[facility] Rxzbnedivd7358 [place] [id number]. Farhat Leal PLT 224 103/ul Normal 150-450 [facility] Comment on above: Performed By: #### C BC ####[facility] Qdupguzzmt2632 [place] [id number]. Farhat Leal RBC 4.11 106/ul Critically low 4.70-6.10 [facility] Comment on above: Performed By: #### C BC ####[facility] Jalyvytntf7853 [place] [id number]. Farhat Elvis WBC 8.2 103/ul Normal 4.0-11.0 [facility] Comment on above: Performed By: #### C BC ####[facility] Xxhpmsyvnm[address] [place], [place] [address]Dr. Farhat Leal PROF CHEM 8 (BAS METB)on Anion gap [Moles/Vol] 9.6 mmol/L Normal [facility] Comment on above: Performed By: #### B MP ####[facility] Jnldhmhvhy[address] [place], [place] [address]Dr. Farhat Leal Calcium [Mass/Vol] 8.6 mg/dL Normal 8.5-10.[address] [facility] Comment on above: Performed By: #### B MP ####[facility] Nmvhtamenf[address] [place], [place] [address]Dr. Farhat Leal Chloride [Moles/Vol] 94 mmol/L Critically low 98-107 [facility] Comment on above: Performed By: #### B MP ####[facility] Fsxodsmnog9680 [place] [id number]. Farhat Leal CO2 [Moles/Vol] 28.1 mmol/L Normal 21.0-32.0 [facility] Comment on above: Performed By: #### B MP ####[facility] Grtmlodhvl0662 [place] [id number]. Farhat Leal Creatinine [Mass/Vol] 1.91 mg/dL Critically high 0.70-1.30 [facility] Comment on above: Performed By: #### B MP ####[facility] Orrarvbpwc6849 [place] [id number]. Farhat Leal EGFR-AF GRENADIAN 42 mL/min/1.73m2 Critically low >=60 [facility] Comment on above: Performed By: #### B MP ####[facility] Wauekowxgt9289 [place] [id number]. Farhat Leal EGFR-NON AF GRENADIAN 34 mL/min/1.73m2 Critically low >=60 [facility] Comment on above: Performed By: #### B MP ####[facility] Krpngpbpeb1533 [place] [phone]. Farhat Leal Glucose [Mass/Vol] 314 mg/dL Critically high 74-106 [facility] Comment on above: Performed By: #### B MP ####[facility] Oqmmoihuti37[address] [place] [address]Dr. Farhat Leal Potassium [Moles/Vol] 4.7 mmol/L Normal 3.5-5.1 [facility] Comment on above: Performed By: #### B MP ####[facility] Mdcbolhlgq083[address] [place], [place] [address]Dr. Farhat Leal Sodium [Moles/Vol] 127 mmol/L Critically low 136-145 [facility] Comment on above: Performed By: #### B MP ####[facility] Lgdanlfufe1761 [place] [id number]. Farhat Leal Urea nitrogen [Mass/Vol] 79.0 mg/dL Critically high 7.0-18.0 [facility] Comment on above: Result Comment: repe ated Performed By: #### B MP ####[facility] Pavntkznzi5295 [place] [id number]. Farhat Leal Urea nitrogen/Creatinine [Mass ratio] 41.4 mg/mg Normal [facility] Comment on above: Performed By: #### B MP ####[facility] Iaasbbgank2813 [place] [address]Dr. Farhat Leal PTT HEPARIN MONITORon 2021 aPTT Coag (Bld) [Time] 42.7 s Normal 39.5-54.2 [facility] Comment on above: Performed By: #### P TTHEP ####[facility] Egjyfqervt6582 [place] [address]Dr. Farhat Elvis aPTT Coag (Bld) [Time] 56.7 s Critically high 39.5-54. 2 [facility] Comment on above: Performed By: #### P TTHEP ####[facility] Qcyfgzndoc[address] [place], [place] [address]Dr. Farhat Leal CBC AUTO DIFFon 09-23-2021 BASO # 0.1 103/ul Normal 0.0-0.1 [facility] Comment on above: Performed By: #### C BC ####[facility] Bypgkqyedb[address] [place], [place] [address]Dr. Farhat Leal Basophils/100 WBC (Bld) 0.6 % Normal 0.2-2.0 [facility] Comment on above: Performed By: #### C BC ####[facility] Cffwtjvzqf97[address] [place], [place] [address]Dr. Farhat Leal EO # 0.2 103/ul Normal 0.0-0.7 [facility] Comment on above: Performed By: #### C BC ####[facility] Ugyrpvlcvz99[address] [place], [place] [address]Dr. Farhat Lael Eosinophils/100 WBC (Bld) 2.6 % Normal 0.9-7.0 [facility] Comment on above: Performed By: #### C BC ####[facility] Wwfjdiephj307[address] [place], [place] [address]Dr. Farhat Leal Erythrocyte distribution width (RBC) [Ratio] 12.4 % Normal 11.0-15.0 [facility] Comment on above: Performed By: #### C BC ####[facility] Wxkbgbzqjg235[address] [place], [place] [address]Dr. Farhat Leal Hematocrit (Bld) [Volume fraction] 38.4 % Critically low 42.0-54.0 [facility] Comment on above: Performed By: #### C BC ####[facility] Pxvahhcjwe3942 [place] [id number]. Farhat Leal Hemoglobin (Bld) [Mass/Vol] 12.8 g/dL Critically low 14.0-18.0 [facility] Comment on above: Performed By: #### C BC ####[facility] Zqcbdwacee1276 [place] [id number]. Farhat Leal IG # 0.06 10e3/ul Critically high 0.00-0.03 [facility] Comment on above: Performed By: #### C BC ####[facility] Xjywnectaz1944 [place] [id number]. Farhat Leal IG % 0.8 % Critically high 0.0-0.5 [facility] Comment on above: Performed By: #### C BC ####[facility] Deymmmsszi7427 [place] [address]Dr. Farhat Leal LYMPH # 1.5 103/ul Normal 1.2-3.8 [facility] Comment on above: Performed By: #### C BC ####[facility] Jlnuenxjvv9573 [place] [address]Dr. Farhat Leal Lymphocytes/100 WBC (Bld) 19.7 % Critically low 20.5-60.0 [facility] Comment on above: Performed By: #### C BC ####[facility] Soqfyfarjf0357 [place] [address]Dr. Farhat Leal MANUAL DIFF REQ NO Normal [facility] Comment on above: Performed By: #### C BC ####[facility] Dbydpymgmd2630 [place] [address]Dr. Farhat Leal MCH (RBC) [Entitic mass] 31.6 pg Normal 25.9-34.0 [facility] Comment on above: Performed By: #### C BC ####[facility] Ombtdxxqjc7622 [place] [address]Dr. Farhat Leal MCHC (RBC) [Mass/Vol] 33.3 g/dL Normal 29.9-35.2 [facility] Comment on above: Performed By: #### C BC ####[facility] Wyzrteaxpt9693 [place] [id number]. Farhat Leal MCV (RBC) [Entitic vol] 94.8 fL Critically high 80.0-94.0 [facility] Comment on above: Performed By: #### C BC ####[facility] Lpggdxbunt7189 [place] [id number]. Farhat Leal MONO # 1.0 103/ul Critically high 0.3-0.8 [facility] Comment on above: Performed By: #### C BC ####[facility] Bhocaqeplw2425 [place] [id number]. Farhat Leal Monocytes/100 WBC (Bld) 13.0 % Critically high 1.7-12.0 [facility] Comment on above: Performed By: #### C BC ####[facility] Hfgftoeerm2904 [place] [id number]. Farhat Leal NEUT # 4.9 103/ul Normal 1.4-6.5 [facility] Comment on above: Performed By: #### C BC ####[facility] Bhienhnheh0371 [place] [id number]. Farhat Leal Neutrophils/100 WBC (Bld) 63.3 % Normal 43.0-75.0 [facility] Comment on above: Performed By: #### C BC ####[facility] Cxksxkefez3990 [place] [id number]. Farhat Leal Platelet mean volume (Bld) [Entitic vol] 10.7 fL Normal 9.5-13.5 [facility] Comment on above: Performed By: #### C BC ####[facility] Dtkjhmgcrz7134 [place] [id number]. Farhat Leal PLT 205 103/ul Normal 150-450 [facility] Comment on above: Performed By: #### C BC ####[facility] Tszkzbhjqo6087 [place] [id number]. Farhat Leal RBC 4.05 106/ul Critically low 4.70-6.10 [facility] Comment on above: Performed By: #### C BC ####[facility] Isttblhbgr8640 [place] [phone]. Madelynlorri Elvis WBC 7.7 103/ul Normal 4.0-11.0 [facility] Comment on above: Performed By: #### C BC ####[facility] Calmudjoeh[address] [place] [address]Dr. Farhat Leal PROF CHEM 8 (BAS METB)on Anion gap [Moles/Vol] 15.5 mmol/L Normal [facility] Comment on above: Performed By: #### B MP ####[facility] Aqthzhvqrc5610 [place] [address]Dr. Farhat Leal Calcium [Mass/Vol] 9.1 mg/dL Normal 8.5-10.[address] [facility] Comment on above: Performed By: #### B MP ####[facility] Uidgilsixq744[address] [place], [place] [address]Dr. Farhat Leal Chloride [Moles/Vol] 92 mmol/L Critically low 98-107 [facility] Comment on above: Performed By: #### B MP ####[facility] Thvlyqlnvv2064[address] [place], [place] [address]Dr. Farhat Leal CO2 [Moles/Vol] 28.5 mmol/L Normal 21.0-32.0 [facility] Comment on above: Performed By: #### B MP ####[facility] Bbjxzirczo[address] [place], [place] [address]Dr. Farhat Leal Creatinine [Mass/Vol] 1.84 mg/dL Critically high 0.70-1.30 [facility] Comment on above: Performed By: #### B MP ####[facility] Rokfgicwqd244[address] [place], [place] [address]Dr. Farhat Leal EGFR-AF GRE[place]DIAN 44 mL/min/1.73m2 Critically low >=60 [facility] Comment on above: Performed By: #### B MP ####[facility] Onyigsddlp2225[address] [place], [place] [address]Dr. Farhat Leal EGFR-NON AF GRENADIAN 36 mL/min/1.73m2 Critically low >=60 [facility] Comment on above: Performed By: #### B MP ####[facility] Blvzplaenv2307 [place] [address]Dr. Madelynlorri Elvis Glucose [Mass/Vol] 267 mg/dL Critically high 74-106 [facility] Comment on above: Performed By: #### B MP ####[facility] Stoqtxstsg4719 [place] [address]Dr. Farhat Leal Potassium [Moles/Vol] 5.0 mmol/L Normal 3.5-5.1 [facility] Comment on above: Performed By: #### B MP ####[facility] Wxupbtadqv7836[address] [place], [place] [address]Dr. Farhat Leal Sodium [Moles/Vol] 131 mmol/L Critically low 136-145 [facility] Comment on above: Performed By: #### B MP ####[facility] Simictaguo58[address] [place], [place] [address]Dr. Farhat Leal Urea nitrogen [Mass/Vol] 76.0 mg/dL Critically high 7.0-18.0 [facility] Comment on above: Performed By: #### B MP ####[facility] Loxekwcbaq68[address] [place], [place] [address]Dr. Farhat Leal Urea nitrogen/Creatinine [Mass ratio] 41.3 mg/mg Normal [facility] Comment on above: Performed By: #### B MP ####[facility] Tmjgrsqggo38[address] [place], [place] [address]Dr. Farhat Leal PTT HEPARIN MONITORon 2021 aPTT Coag (Bld) [Time] 57.2 s Critically high 39.5-54. 2 [facility] Comment on above: Performed By: #### P TTHEP ####[facility] Xlxsvvcxvv374[address] [place], [place] [address]Dr. Farhat Leal aPTT Coag (Bld) [Time] 74.7 s Critically high 39.5-54. 2 [facility] Comment on above: Result Comment: repe ated Performed By: #### P TTHEP ####[facility] Ebxjechjfy[address] [place], [place] [address]Dr. Farhat Leal aPTT Coag (Bld) [Time] 45.5 s Normal 39.5-54.2 [facility] Comment on above: Performed By: #### P TTHEP ####[facility] Uaruswexpx3092 [place] [id number]. Farhat Leal CBC AUTO DIFFon 09-22-2021 BASO # 0.1 103/ul Normal 0.0-0.1 [facility] Comment on above: Performed By: #### C BC ####[facility] Acxlvycusv5483 [place] [id number]. Farhat Leal Basophils/100 WBC (Bld) 0.7 % Normal 0.2-2.0 [facility] Comment on above: Performed By: #### C BC ####[facility] Faidvbxeuy[address] [place], [place] [id number]. Farhat Leal EO # 0.3 103/ul Normal 0.0-0.7 [facility] Comment on above: Performed By: #### C BC ####[facility] Rsbkkfsuna[address] [place], [place] [address]Dr. Farhat Leal Eosinophils/100 WBC (Bld) 3.2 % Normal 0.9-7.0 [facility] Comment on above: Performed By: #### C BC ####[facility] Cksgyladne[address] [place], [place] [address]Dr. Farhat Leal Erythrocyte distribution width (RBC) [Ratio] 12.5 % Normal 11.0-15.0 [facility] Comment on above: Performed By: #### C BC ####[facility] [address]lomrffjf[address] [place], [place] [address]Dr. Farhat Leal Hematocrit (Bld) [Volume fraction] 40.5 % Critically low 42.0-54.0 [facility] Comment on above: Performed By: #### C BC ####[facility] Mgbnirjexp[address] [place], [place] [address]Dr. Farhat Leal Hemoglobin (Bld) [Mass/Vol] 13.4 g/dL Critically low 14.0-18.0 [facility] Comment on above: Performed By: #### C BC ####[facility] Zhlwhvkzup3913 [place] [id number]. Farhat Leal IG # 0.11 10e3/ul Critically high 0.00-0.03 [facility] Comment on above: Performed By: #### C BC ####[facility] Peykrotgqm1814 [place] [id number]. Farhat Leal IG % 1.3 % Critically high 0.0-0.5 [facility] Comment on above: Performed By: #### C BC ####[facility] Ztqabdzuxc5709 [place] [address]Dr. Farhat Leal LYMPH # 1.7 103/ul Normal 1.2-3.8 [facility] Comment on above: Performed By: #### C BC ####[facility] Rrjckomyll[address] [place], [place] [address]Dr. Farhat Leal Lymphocytes/100 WBC (Bld) 19.6 % Critically low 20.5-60.0 [facility] Comment on above: Performed By: #### C BC ####[facility] Ubaapruawd5836 [place] [address]Dr. Farhat Leal MANUAL DIFF REQ NO Normal [facility] Comment on above: Performed By: #### C BC ####[facility] Ywxinrkerr8[address] [place], [place] [address]Dr. Farhat Leal MCH (RBC) [Entitic mass] 31.1 pg Normal 25.9-34.0 [facility] Comment on above: Performed By: #### C BC ####[facility] Mecifmxxpx[address] [place], [place] [address]Dr. Farhat Leal MCHC (RBC) [Mass/Vol] 33.1 g/dL Normal 29.9-35.2 [facility] Comment on above: Performed By: #### C BC ####[facility] Jecqytkhfj85[address] [place] [address]Dr. Farhat Leal MCV (RBC) [Entitic vol] 94.0 fL Normal 80.0-94.0 [facility] Comment on above: Performed By: #### C BC ####[facility] Xegzffyeah3584 [place] [id number]. Farhat Leal MONO # 1.1 103/ul Critically high 0.3-0.8 [facility] Comment on above: Performed By: #### C BC ####[facility] Iomdngnndq3101 [place] [id number]. Farhat Leal Monocytes/100 WBC (Bld) 12.7 % Critically high 1.7-12.0 [facility] Comment on above: Performed By: #### C BC ####[facility] Kuhpzwgbkg8961 [place] [id number]. Farhat Leal NEUT # 5.3 103/ul Normal 1.4-6.5 [facility] Comment on above: Performed By: #### C BC ####[facility] Zcpdhxbsiv5835 [place] [id number]. Farhat Leal Neutrophils/100 WBC (Bld) 62.5 % Normal 43.0-75.0 [facility] Comment on above: Performed By: #### C BC ####[facility] Gfyeazwooz4522 [place] [id number]. Farhat Leal Platelet mean volume (Bld) [Entitic vol] 10.1 fL Normal 9.5-13.5 [facility] Comment on above: Performed By: #### C BC ####[facility] Qcbuwdblnt9039 [place] [id number]. Farhat Leal PLT 220 103/ul Normal 150-450 [facility] Comment on above: Performed By: #### C BC ####[facility] Nsvtdcnzlo1505 [place] [id number]. Farhat Leal RBC 4.31 106/ul Critically low 4.70-6.10 [facility] Comment on above: Performed By: #### C BC ####[facility] Obbwwrlesj18[address] [place] [id number]. Farhat Leal WBC 8.4 103/ul Normal 4.0-11.0 [facility] Comment on above: Performed By: #### C BC ####[facility] Glpkxghjlu9787 [place] [address]Dr. Farhat Leal PROF CHEM 8 (BAS METB)on Anion gap [Moles/Vol] 15.5 mmol/L Normal [facility] Comment on above: Performed By: #### B MP ####[facility] Jbtyzuogxy475[address] [place] [address]Dr. Farhat Leal Calcium [Mass/Vol] 8.9 mg/dL Normal 8.5-10.[address] [facility] Comment on above: Performed By: #### B MP ####[facility] Owjtsdeeos27[address] [place], [place] [address]Dr. Farhat Leal Chloride [Moles/Vol] 92 mmol/L Critically low 98-107 [facility] Comment on above: Performed By: #### B MP ####[facility] Mpttdmvquy44[address] [place], [place] [address]Dr. Farhat Leal CO2 [Moles/Vol] 25.7 mmol/L Normal 21.0-32.0 [facility] Comment on above: Performed By: #### B MP ####[facility] Sgwauzeyqq679[address] [place], [place] [address]Dr. Farhat Leal Creatinine [Mass/Vol] 1.85 mg/dL Critically high 0.70-1.30 [facility] Comment on above: Performed By: #### B MP ####[facility] Tldoadjvox69[address] [place], [place] [address]Dr. Farhat Leal EGFR-AF GRENADIAN 43 mL/min/1.73m2 Critically low >=60 [facility] Comment on above: Performed By: #### B MP ####[facility] Cjwjeipusi[address] [place], [place] [address]Dr. Farhat Leal EGFR-NON AF GRENADIAN 36 mL/min/1.73m2 Critically low >=60 [facility] Comment on above: Performed By: #### B MP ####[facility] Zuoniqyhil010[address] [place], [place] [address]Dr. Farhat Leal Glucose [Mass/Vol] 410 mg/dL Critically high 74-106 [facility] Comment on above: Performed By: #### B MP ####[facility] Waesawvdfs25[address] [place] [address]Dr. Farhat Leal Potassium [Moles/Vol] 5.2 mmol/L Critically high 3.5-5.1 [facility] Comment on above: Performed By: #### B MP ####[facility] Xcjbauukaw9030[address] [place], [place] [address]Dr. Farhat Leal Sodium [Moles/Vol] 128 mmol/L Critically low 136-145 [facility] Comment on above: Performed By: #### B MP ####[facility] Ycjllaciku5210[address] [place], [place] [address]Dr. Farhat Leal Urea nitrogen [Mass/Vol] 75.0 mg/dL Critically high 7.0-18.0 [facility] Comment on above: Performed By: #### B MP ####[facility] Cipnjpkkxf529[address] [place], [place] [address]Dr. Farhat Leal Urea nitrogen/Creatinine [Mass ratio] 40.5 mg/mg Normal [facility] Comment on above: Performed By: #### B MP ####[facility] Royljvuyds570[address] [place], [place] [address]Dr. Farhat Leal PTT HEPARIN MONITORon 2021 aPTT Coag (Bld) [Time] 51.2 s Normal 39.5-54.2 [facility] Comment on above: Performed By: #### P TTHEP ####[facility] Dcqdrhtkae867[address] [place], [place] [address]Dr. Farhat Leal aPTT Coag (Bld) [Time] 55.6 s Critically high 39.5-54. 2 [facility] Comment on above: Performed By: #### P TTHEP ####[facility] Qmylvjvlgn04[address] [place], [place] [address]Dr. Farhat Leal aPTT Coag (Bld) [Time] 46.1 s Normal 39.5-54.2 [facility] Comment on above: Performed By: #### P TTHEP ####[facility] Pplnqvwokc[address] [place], [place] [address]Dr. Farhat Leal aPTT Coag (Bld) [Time] 53.8 s Normal 39.5-54.2 Th [facility] Comment on above: Performed By: #### P TTHEP ####[facility] Svcaizjyzd14[address] [place] [address]Dr. Farhat Leal CBC AUTO DIFFon 09-21-2021 BASO # 0.1 103/ul Normal 0.0-0.1 [facility] Comment on above: Performed By: #### C BC ####[facility] Mkgarvnsqn8880 [place] [address]Dr. Farhat Elvis Basophils/100 WBC (Bld) 0.8 % Normal 0.2-2.0 [facility] Comment on above: Performed By: #### C BC ####[facility] Ofctxojvye764[address] [place], [place] [address]Dr. Farhat Leal EO # 0.4 103/ul Normal 0.0-0.7 [facility] Comment on above: Performed By: #### C BC ####[facility] Pbrdbhduyw0180[address] [place], [place] [address]Dr. Farhat Leal Eosinophils/100 WBC (Bld) 4.3 % Normal 0.9-7.0 [facility] Comment on above: Performed By: #### C BC ####[facility] Gldzqvyoye4860[address] [place], [place] [address]Dr. Farhat Leal Erythrocyte distribution width (RBC) [Ratio] 12.5 % Normal 11.0-15.0 [facility] Comment on above: Performed By: #### C BC ####[facility] Divolvsfxz805[address] [place], [place] [address]Dr. Farhat Leal Hematocrit (Bld) [Volume fraction] 40.8 % Critically low 42.0-54.0 [facility] Comment on above: Performed By: #### C BC ####[facility] Zceawqfhla350[address] [place], [place] [address]Dr. Farhat Leal Hemoglobin (Bld) [Mass/Vol] 13.5 g/dL Critically low 14.0-18.0 [facility] Comment on above: Performed By: #### C BC ####[facility] Iejhpqorzg6430 [place] [id number]. Farhat Leal IG # 0.10 10e3/ul Critically high 0.00-0.03 [facility] Comment on above: Performed By: #### C BC ####[facility] Tuqijhybkt2438 [place] [id number]. Farhat Leal IG % 1.2 % Critically high 0.0-0.5 [facility] Comment on above: Performed By: #### C BC ####[facility] Fwumircujy3424 [place] [address]Dr. Farhat Leal LYMPH # 1.3 103/ul Normal 1.2-3.8 [facility] Comment on above: Performed By: #### C BC ####[facility] Sfjjikrfiy4108 [place] [address]Dr. Farhat Leal Lymphocytes/100 WBC (Bld) 15.4 % Critically low 20.5-60.0 [facility] Comment on above: Performed By: #### C BC ####[facility] Aqvhuczska9977 [place] [address]Dr. Farhat Leal MANUAL DIFF REQ NO Normal [facility] Comment on above: Performed By: #### C BC ####[facility] Yvowaudpyw188[address] [place], [place] [address]Dr. Farhat Leal MCH (RBC) [Entitic mass] 31.0 pg Normal 25.9-34.0 [facility] Comment on above: Performed By: #### C BC ####[facility] Nhfdstczwp050[address] [place], [place] [address]Dr. Farhat Leal MCHC (RBC) [Mass/Vol] 33.1 g/dL Normal 29.9-35.2 [facility] Comment on above: Performed By: #### C BC ####[facility] Jhfkcmmkaz925[address] [place], [place] [address]Dr. Farhat Leal MCV (RBC) [Entitic vol] 93.8 fL Normal 80.0-94.0 [facility] Comment on above: Performed By: #### C BC ####[facility] Djjfypldec7338 [place] [id number]. Farhat Leal MONO # 1.2 103/ul Critically high 0.3-0.8 [facility] Comment on above: Performed By: #### C BC ####[facility] Tkaqnggotx6947 [place] [id number]. Farhat Leal Monocytes/100 WBC (Bld) 13.6 % Critically high 1.7-12.0 [facility] Comment on above: Performed By: #### C BC ####[facility] Qmtfsemvif1020 [place] [id number]. Farhat Leal NEUT # 5.5 103/ul Normal 1.4-6.5 [facility] Comment on above: Performed By: #### C BC ####[facility] Yclzkbdahb5759 [place] [address]Dr. Farhat Leal Neutrophils/100 WBC (Bld) 64.7 % Normal 43.0-75.0 [facility] Comment on above: Performed By: #### C BC ####[facility] Medxzuhohv4324 [place] [id number]. Farhat Leal Platelet mean volume (Bld) [Entitic vol] 9.8 fL Normal 9.5-13.5 [facility] Comment on above: Performed By: #### C BC ####[facility] Xuwwdgfiqi4018 [place] [id number]. Farhat Leal PLT 206 103/ul Normal 150-450 [facility] Comment on above: Performed By: #### C BC ####[facility] Xwgpfoiucp0785 [place] [id number]. Farhat Leal RBC 4.35 106/ul Critically low 4.70-6.10 [facility] Comment on above: Performed By: #### C BC ####[facility] Acllvbrsxz1085 [place] [id number]. Farhat Leal WBC 8.4 103/ul Normal 4.0-11.0 [facility] Comment on above: Performed By: #### C BC ####[facility] Lzbmcvzzlt4755 [place] [id number]. Farhat Leal PROF CHEM 8 (BAS METB)on Anion gap [Moles/Vol] 12.3 mmol/L Normal [facility] Comment on above: Performed By: #### B MP ####[facility] Hrdsxkvibs6203 [place] [address]Dr. Farhat Leal Calcium [Mass/Vol] 8.6 mg/dL Normal 8.5-10.[address] [facility] Comment on above: Performed By: #### B MP ####[facility] Zmzpchpooe8832 [place] [address]Dr. Farhat Leal Chloride [Moles/Vol] 94 mmol/L Critically low 98-107 [facility] Comment on above: Performed By: #### B MP ####[facility] Hbbnyttapa3205 [place] [address]Dr. Farhat Leal CO2 [Moles/Vol] 30.8 mmol/L Normal 21.0-32.0 [facility] Comment on above: Performed By: #### B MP ####[facility] Sbnjdsjazp943[address] [place], [place] [address]Dr. Farhat Leal Creatinine [Mass/Vol] 1.99 mg/dL Critically high 0.70-1.30 [facility] Comment on above: Performed By: #### B MP ####[facility] Ypwsybfbyh4301[address] [place], [place] [address]Dr. Farhat Leal EGFR-AF GRENADIAN 40 mL/min/1.73m2 Critically low >=60 [facility] Comment on above: Performed By: #### B MP ####[facility] Lidahdyrdp7679 [place] [address]Dr. Farhat Leal EGFR-NON AF GRE[place]DIAN 33 mL/min/1.73m2 Critically low >=60 [facility] Comment on above: Performed By: #### B MP ####[facility] Wksahdzakd874[address] [place], [place] [address]Dr. Farhat Leal Glucose [Mass/Vol] 264 mg/dL Critically high 74-106 [facility] Comment on above: Performed By: #### B MP ####[facility] Jeyeunknub1977 [place] [address]Dr. Farhat Leal Potassium [Moles/Vol] 5.1 mmol/L Normal 3.5-5.1 [facility] Comment on above: Performed By: #### B MP ####[facility] Oowvyadiko9723[address] [place], [place] [address]Dr. Farhat Leal Sodium [Moles/Vol] 132 mmol/L Critically low 136-145 [facility] Comment on above: Performed By: #### B MP ####[facility] Vztcoazcah9211[address] [place], [place] [address]Dr. Farhat Leal Urea nitrogen [Mass/Vol] 72.0 mg/dL Critically high 7.0-18.0 [facility] Comment on above: Performed By: #### B MP ####[facility] Nxwotiutau5210[address] [place], [place] [address]Dr. Farhat Leal Urea nitrogen/Creatinine [Mass ratio] 36.2 mg/mg Normal [facility] Comment on above: Performed By: #### B MP ####[facility] Cvzzebtkep938[address] [place], [place] [address]Dr. Farhat Leal PTT HEPARIN MONITORon 2021 aPTT Coag (Bld) [Time] 45.3 s Normal 39.5-54.2 [facility] Comment on above: Performed By: #### P TTHEP ####[facility] Yqmhdmjmhg1075[address] [place], [place] [address]Dr. Farhat Leal aPTT Coag (Bld) [Time] 68.0 s Critically high 39.5-54. 2 [facility] Comment on above: Performed By: #### P TTHEP ####[facility] Exwiuogaay267[address] [place], [place] [address]Dr. Farhat Leal aPTT Coag (Bld) [Time] 69.4 s Critically high 39.5-54. 2 [facility] Comment on above: Performed By: #### P TTHEP ####[facility] Fapvhwwdcb1713[address] [place], [place] [address]Dr. Farhat Leal aPTT Coag (Bld) [Time] 53.5 s Normal 39.5-54.2 [facility] Comment on above: Performed By: #### P TTHEP ####[facility] Fnmtmqrhpu4248 [place] [address]Dr. Farhat Leal aPTT Coag (Bld) [Time] 126.9 s Critically high 39.5-54. 2 [facility] Comment on above: Performed By: #### P TTHEP ####[facility] Fhiwgmshbi214[address] [place], [place] [address]Dr. Farhat Leal CBC AUTO DIFFon 09-20-2021 BASO # 0.1 103/ul Normal 0.0-0.1 [facility] Comment on above: Performed By: #### C BC ####[facility] Hpklegmbln684[address] [place], [place] [address]Dr. Farhat Leal Basophils/100 WBC (Bld) 0.7 % Normal 0.2-2.0 [facility] Comment on above: Performed By: #### C BC ####[facility] Kzgpnukmzj626[address] [place], [place] [address]Dr. Farhat Leal EO # 0.2 103/ul Normal 0.0-0.7 [facility] Comment on above: Performed By: #### C BC ####[facility] Lgdldsfsqr3527[address] [place], [place] [address]Dr. Farhat Leal Eosinophils/100 WBC (Bld) 3.2 % Normal 0.9-7.0 [facility] Comment on above: Performed By: #### C BC ####[facility] Xkztqkqgva0360[address] [place], [place] [address]Dr. Farhat Leal Erythrocyte distribution width (RBC) [Ratio] 12.4 % Normal 11.0-15.0 [facility] Comment on above: Performed By: #### C BC ####[facility] Fauqsqljse056[address] [place], [place] [address]Dr. Farhat Leal Hematocrit (Bld) [Volume fraction] 40.1 % Critically low 42.0-54.0 [facility] Comment on above: Performed By: #### C BC ####[facility] Rapbhtvfvk7101 [place] [id number]. Farhat Leal Hemoglobin (Bld) [Mass/Vol] 13.4 g/dL Critically low 14.0-18.0 [facility] Comment on above: Performed By: #### C BC ####[facility] Cuukvsqmax6469 [place] [id number]. Farhat Leal IG # 0.08 10e3/ul Critically high 0.00-0.03 [facility] Comment on above: Performed By: #### C BC ####[facility] Ejypgvdwws2575 [place] [address]Dr. Farhat Leal IG % 1.1 % Critically high 0.0-0.5 [facility] Comment on above: Performed By: #### C BC ####[facility] Eybrkrtlur6760 [place] [address]Dr. Farhat Leal LYMPH # 1.3 103/ul Normal 1.2-3.8 [facility] Comment on above: Performed By: #### C BC ####[facility] Olhkjxfodg2854 [place] [address]Dr. Farhat Leal Lymphocytes/100 WBC (Bld) 17.3 % Critically low 20.5-60.0 [facility] Comment on above: Performed By: #### C BC ####[facility] Imdwjncciw4782 [place] [address]Dr. Farhat Leal MANUAL DIFF REQ NO Normal [facility] Comment on above: Performed By: #### C BC ####[facility] Hwbvejkaou3068 [place] [id number]. Farhat Leal MCH (RBC) [Entitic mass] 31.2 pg Normal 25.9-34.0 [facility] Comment on above: Performed By: #### C BC ####[facility] Tmcfjavwwx4187 [place] [id number]. Farhat Leal MCHC (RBC) [Mass/Vol] 33.4 g/dL Normal 29.9-35.2 [facility] Comment on above: Performed By: #### C BC ####[facility] Bifehdjhel7135 [place] [id number]. Farhat Leal MCV (RBC) [Entitic vol] 93.3 fL Normal 80.0-94.0 [facility] Comment on above: Performed By: #### C BC ####[facility] Iwdqcigeej8186 [place] [id number]. Farhat Leal MONO # 0.9 103/ul Critically high 0.3-0.8 [facility] Comment on above: Performed By: #### C BC ####[facility] Ezgoforwbs4364 [place] [id number]. Farhat Leal Monocytes/100 WBC (Bld) 12.4 % Critically high 1.7-12.0 [facility] Comment on above: Performed By: #### C BC ####[facility] Inyqcdqdni[address] [place], [place] [id number]. Farhat Leal NEUT # 4.7 103/ul Normal 1.4-6.5 [facility] Comment on above: Performed By: #### C BC ####[facility] Bynglvdsqi4980 [place] [id number]. Farhat Leal Neutrophils/100 WBC (Bld) 65.3 % Normal 43.0-75.0 [facility] Comment on above: Performed By: #### C BC ####[facility] Niygqvfifk2436 [place] [id number]. Farhat Leal Platelet mean volume (Bld) [Entitic vol] 9.9 fL Normal 9.5-13.5 [facility] Comment on above: Performed By: #### C BC ####[facility] Fqjsuuuugx0469 [place] [id number]. Farhat Leal PLT 180 103/ul Normal 150-450 [facility] Comment on above: Performed By: #### C BC ####[facility] Rhbtucercc8745 [place] [id number]. Farhat Leal RBC 4.30 106/ul Critically low 4.70-6.10 [facility] Comment on above: Performed By: #### C BC ####[facility] Qhbqobffvl3310 [place] [address]Dr. Farhat Elvis WBC 7.2 103/ul Normal 4.0-11.0 [facility] Comment on above: Performed By: #### C BC ####[facility] Knhrwwgdjd189[address] [place], [place] [address]Dr. Farhat Leal PTT HEPARIN MONITORon 2021 aPTT Coag (Bld) [Time] 26.7 s Critically low 39.5-54.2 [facility] Comment on above: Performed By: #### P TTHEP ####[facility] Oyefeorkvf8610[address] [place], [place] [address]Dr. Farhat Leal aPTT Coag (Bld) [Time] 121.0 s Critically high 39.5-54. 2 [facility] Comment on above: Performed By: #### P TTHEP ####[facility] Gymnkwwthv937[address] [place], [place] [address]Dr. Farhat Elvis aPTT Coag (Bld) [Time] 27.6 s Critically low 39.5-54.2 [facility] Comment on above: Performed By: #### P TTHEP ####[facility] Xfrqcejnqn0801[address] [place], [place] [address]Dr. Madelynlorri Elvis aPTT Coag (Bld) [Time] 139.0 s Critically high 39.5-54. 2 [facility] Comment on above: Performed By: #### P TTHEP ####[facility] Ouacazlmjq095[address] [place], [place] [address]Dr. Farhat Leal CBC AUTO DIFFon 09-19-2021 BASO # 0.0 103/ul Normal 0.0-0.1 [facility] Comment on above: Performed By: #### C BC ####[facility] Gdjllcvbud34225[address] [place], [place] [address]Dr. Farhat Leal Basophils/100 WBC (Bld) 0.5 % Normal 0.2-2.0 [facility] Comment on above: Performed By: #### C BC ####[facility] Gcibfifwvl7895 [place] [id number]. Farhat Leal EO # 0.2 103/ul Normal 0.0-0.7 [facility] Comment on above: Performed By: #### C BC ####[facility] Wnhgnrgool0865 [place] [id number]. Farhat Leal Eosinophils/100 WBC (Bld) 2.6 % Normal 0.9-7.0 [facility] Comment on above: Performed By: #### C BC ####[facility] Qejsmaqacr7642 [place] [address]Dr. Farhat Leal Erythrocyte distribution width (RBC) [Ratio] 12.5 % Normal 11.0-15.0 [facility] Comment on above: Performed By: #### C BC ####[facility] Ewasyralbi55[address] [place], [place] [address]Dr. Farhat Leal Hematocrit (Bld) [Volume fraction] 39.2 % Critically low 42.0-54.0 [facility] Comment on above: Performed By: #### C BC ####[facility] Xkmbaygxqr3109 [place] [address]Dr. Farhat Leal Hemoglobin (Bld) [Mass/Vol] 13.3 g/dL Critically low 14.0-18.0 [facility] Comment on above: Performed By: #### C BC ####[facility] Kugilajaqm3969 [place] [id number]. Farhat Leal IG # 0.08 10e3/ul Critically high 0.00-0.[address] [facility] Comment on above: Performed By: #### C BC ####[facility] Snzwnkrlpo1494 [place] [id number]. Farhat Leal IG % 0.9 % Critically high 0.0-0.5 [facility] Comment on above: Performed By: #### C BC ####[facility] Rpxzpycspn[address] [place], [place] [address]Dr. Farhat Leal LYMPH # 1.5 103/ul Normal 1.2-3.8 [facility] Comment on above: Performed By: #### C BC ####[facility] Urradymyze3728 [place] [id number]. Farhat Leal Lymphocytes/100 WBC (Bld) 17.2 % Critically low 20.5-60.0 [facility] Comment on above: Performed By: #### C BC ####[facility] Wcgtropcfl4414 [place] [id number]. Farhat Leal MANUAL DIFF REQ NO Normal [facility] Comment on above: Performed By: #### C BC ####[facility] Flsmisgcco4409 [place] [address]Dr. Farhat Elvis MCH (RBC) [Entitic mass] 31.7 pg Normal 25.9-34.0 [facility] Comment on above: Performed By: #### C BC ####[facility] Tlkkjwkqle722[address] [place], [place] [address]Dr. Farhat Elvis MCHC (RBC) [Mass/Vol] 33.9 g/dL Normal 29.9-35.2 [facility] Comment on above: Performed By: #### C BC ####[facility] Denyvamrot9818 [place] [address]Dr. Farhat Elvis MCV (RBC) [Entitic vol] 93.3 fL Normal 80.0-94.0 [facility] Comment on above: Performed By: #### C BC ####[facility] Hxuxxvmllo0123 [place] [address]Dr. Madelynlorri Elvis MONO # 1.2 103/ul Critically high 0.3-0.8 [facility] Comment on above: Performed By: #### C BC ####[facility] Ocuodejzod6899 [place] [address]Dr. Farhat Elvis Monocytes/100 WBC (Bld) 13.7 % Critically high 1.7-12.0 [facility] Comment on above: Performed By: #### C BC ####[facility] Xntoatcwbz937[address] [place], [place] [address]Dr. Farhat Leal NEUT # 5.5 103/ul Normal 1.4-6.5 [facility] Comment on above: Performed By: #### C BC ####[facility] Yxgwwdshbp1610 [place] [id number]. Farhat Leal Neutrophils/100 WBC (Bld) 65.1 % Normal 43.0-75.0 [facility] Comment on above: Performed By: #### C BC ####[facility] Vnttcrtnxe5097 [place] [id number]. Farhat Leal Platelet mean volume (Bld) [Entitic vol] 9.6 fL Normal 9.5-13.5 [facility] Comment on above: Performed By: #### C BC ####[facility] Brppwyhuoo6883 [place] [id number]. Farhat Leal PLT 163 103/ul Normal 150-450 [facility] Comment on above: Performed By: #### C BC ####[facility] Oxxipqompa0514 [place] [address]Dr. Farhat Leal RBC 4.20 106/ul Critically low 4.70-6.10 [facility] Comment on above: Performed By: #### C BC ####[facility] Pabbrfneqi0278 [place] [id number]. Farhat Leal WBC 8.4 103/ul Normal 4.0-11.0 [facility] Comment on above: Performed By: #### C BC ####[facility] Abdrsczvwz6840 [place] [address]Dr. Farhat Elvis POINT OF CARE GLUCOSEon Glucose [Mass/Vol] 300 mg/dL Critically high 74-106 [facility] Comment on above: Performed By: #### P OCGLUC ####[facility] Vbxljmedxb5766 [place] [address]Dr. Farhat Leal POTASSIUMon 09-19-2021 Potassium [Moles/Vol] 4.9 mmol/L Normal 3.5-5.1 [facility] Comment on above: Performed By: #### K ####[facility] Zhslwffyjg9[address] [place], [place] [address]Dr. Farhat Leal PTT HEPARIN MONITORon 2021 aPTT Coag (Bld) [Time] 23.4 s Critically low 39.5-54.2 [facility] Comment on above: Result Comment: repe ated Performed By: #### P TTHEP ####[facility] Geekqbaoij23[address] [place], [place] [address]Dr. Farhat Leal aPTT Coag (Bld) [Time] 101.2 s Critically high 39.5-54. 2 [facility] Comment on above: Performed By: #### P TTHEP ####[facility] Gfdztetlrb9625[address] [place], [place] [address]Dr. Farhat Leal aPTT Coag (Bld) [Time] 81.0 s Critically high 39.5-54. 2 [facility] Comment on above: Result Comment: Test Repeated. Critical Value Verified Performed By: #### P TTHEP ####[facility] Phdznlswem[address] [place], [place] [address]Dr. Farhat Elvis CBC AUTO DIFFon 09-18-2021 BASO # 0.0 103/ul Normal 0.0-0.1 [facility] Comment on above: Performed By: #### C BC ####[facility] Kkryirskvm69[address] [place], [place] [address]Dr. Farhat Elvis Basophils/100 WBC (Bld) 0.4 % Normal 0.2-2.0 [facility] Comment on above: Performed By: #### C BC ####[facility] Mqdigwnksp1839[address] [place], [place] [address]Dr. Farhat Leal EO # 0.1 103/ul Normal 0.0-0.7 [facility] Comment on above: Performed By: #### C BC ####[facility] Wtjutlxhgh264[address] [place], [place] [address]Dr. Madelynlorri Leal Eosinophils/100 WBC (Bld) 0.8 % Critically low 0.9-7.0 [facility] Comment on above: Performed By: #### C BC ####[facility] Rjcjxhouua[address] [place], [place] [address]Dr. Farhat Leal Erythrocyte distribution width (RBC) [Ratio] 12.4 % Normal 11.0-15.0 [facility] Comment on above: Performed By: #### C BC ####[facility] Mwxttosifx37[address] [place] [address]Dr. Farhat Leal Hematocrit (Bld) [Volume fraction] 41.7 % Critically low 42.0-54.0 [facility] Comment on above: Performed By: #### C BC ####[facility] Xtxqfrpmuv3670 [place] [address]Dr. Farhat Leal Hemoglobin (Bld) [Mass/Vol] 14.1 g/dL Normal 14.0-18.0 [facility] Comment on above: Performed By: #### C BC ####[facility] Phtfbqlpvi7710 [place] [address]Dr. Farhat Leal IG # 0.06 10e3/ul Critically high 0.00-0.03 [facility] Comment on above: Performed By: #### C BC ####[facility] Hambjjqsdt3795 [place] [address]Dr. Farhat Elvis IG % 0.6 % Critically high 0.0-0.5 [facility] Comment on above: Performed By: #### C BC ####[facility] T[address]af[address] [place], [place] [address]DrSkylar Farhat Leal LYMPH # 0.6 103/ul Critically low 1.2-3.8 [facility] Comment on above: Performed By: #### C BC ####[facility] Yfavjptjkt3374 [place] [address]DrSkylar Farhat Elvis Lymphocytes/100 WBC (Bld) 6.5 % Critically low 20.5-60.0 [facility] Comment on above: Performed By: #### C BC ####[facility] Gtiimyqfeu1632 [place] [address]DrSkylar Farhat Elvis MANUAL DIFF REQ NO Normal [facility] Comment on above: Performed By: #### C BC ####[facility] Ewwrcebdex3491 [place] [address]DrSkylar Farhat Elvis MCH (RBC) [Entitic mass] 31.6 pg Normal 25.9-34.0 [facility] Comment on above: Performed By: #### C BC ####[facility] Sdiinxaxvy7644 [place] [id number]. Farhat Leal MCHC (RBC) [Mass/Vol] 33.8 g/dL Normal 29.9-35.2 [facility] Comment on above: Performed By: #### C BC ####[facility] Nukvyoggoq5995 [place] [id number] Farhat Elvis MCV (RBC) [Entitic vol] 93.5 fL Normal 80.0-94.0 [facility] Comment on above: Performed By: #### C BC ####[facility] Gzauvcjrhz9714 [place] [id number] Leal MONO # 1.0 103/ul Critically high 0.3-0.8 [facility] Comment on above: Performed By: #### C BC ####[facility] Kincgdjzgq[address] [place], [place] [address]Dr. Farhat Leal Monocytes/100 WBC (Bld) 10.4 % Normal 1.7-12.0 [facility] Comment on above: Performed By: #### C BC ####[facility] Wurgwpofeu[address] [place], [place] [address]DrSkylar Leal NEUT # 7.8 103/ul Critically high 1.4-6.5 [facility] Comment on above: Performed By: #### C BC ####[facility] [address]jocp[address]iwp[address] [place], [place] [address]Dr. Farhat Leal Neutrophils/100 WBC (Bld) 81.3 % Critically high 43.0-75.0 [facility] Comment on above: Performed By: #### C BC ####[facility] Ckyluwmzvj[address] [place], [place] [id number] Leal Platelet mean volume (Bld) [Entitic vol] 9.9 fL Normal 9.5-13.5 [facility] Comment on above: Performed By: #### C BC ####[facility] [address]wgynts[address] [place], [place] [id number] Leal PLT 169 103/ul Normal 150-450 [facility] Comment on above: Performed By: #### C BC ####[facility] Asfmlavjzt8524 [place] [id number]. Farhat Elvis RBC 4.46 106/ul Critically low 4.70-6.10 [facility] Comment on above: Performed By: #### C BC ####[facility] Elshuvvvec9598 [place] [id number]. Madelynlorri Leal WBC 9.6 103/ul Normal 4.0-11.0 [facility] Comment on above: Performed By: #### C BC ####[facility] Uluekfweic2967 [place] [id number]. Farhat Leal BASO # 0.0 103/ul Normal 0.0-0.1 [facility] Comment on above: Performed By: #### C BC ####[facility] Xelzxpboso1649 [place] [id number]. Farhat Leal Basophils/100 WBC (Bld) 0.4 % Normal 0.2-2.0 [facility] Comment on above: Performed By: #### C BC ####[facility] Kcoomtefrp4629 [place] [id number]. Madelynlorri Leal EO # 0.1 103/ul Normal 0.0-0.7 [facility] Comment on above: Performed By: #### C BC ####[facility] Fjoakxuymc6255 [place] [id number]. Farhat Leal Eosinophils/100 WBC (Bld) 1.1 % Normal 0.9-7.0 [facility] Comment on above: Performed By: #### C BC ####[facility] Uzvxpaqliu1354 [place] [id number]. Madelynlorri Leal Erythrocyte distribution width (RBC) [Ratio] 12.6 % Normal 11.0-15.0 [facility] Comment on above: Performed By: #### C BC ####[facility] Pybwpvqamo5466 [place] [id number]. Farhat Leal Hematocrit (Bld) [Volume fraction] 40.8 % Critically low 42.0-54.0 [facility] Comment on above: Performed By: #### C BC ####[facility] Mujvomsegj6331 [place] [address]Dr. Farhat Leal Hemoglobin (Bld) [Mass/Vol] 13.6 g/dL Critically low 14.0-18.0 [facility] Comment on above: Performed By: #### C BC ####[facility] Ckzabmfjzh2495 [place] [address]Dr. Farhat Leal IG # 0.08 10e3/ul Critically high 0.00-0.03 [facility] Comment on above: Performed By: #### C BC ####[facility] Nywnzdxzsv5077 [place] [address]Dr. Farhat Leal IG % 0.9 % Critically high 0.0-0.5 [facility] Comment on above: Performed By: #### C BC ####[facility] Ajdbsysvqo0760 [place] [address]Dr. Farhat Leal LYMPH # 0.8 103/ul Critically low 1.2-3.8 [facility] Comment on above: Performed By: #### C BC ####[facility] Sgugyllczc0388 [place] [address]Dr. Farhat Leal Lymphocytes/100 WBC (Bld) 8.7 % Critically low 20.5-60.0 [facility] Comment on above: Performed By: #### C BC ####[facility] Xtsdpipjpf1595 [place] [address]Dr. Farhat Leal MANUAL DIFF REQ NO Normal [facility] Comment on above: Performed By: #### C BC ####[facility] Fzvxxlhchs88[address] [place] [address]Dr. Farhat Leal MCH (RBC) [Entitic mass] 31.6 pg Normal 25.9-34.0 [facility] Comment on above: Performed By: #### C BC ####[facility] Eewqrzgdrj8388 [place] [address]Dr. Farhat Elvis MCHC (RBC) [Mass/Vol] 33.3 g/dL Normal 29.9-35.2 [facility] Comment on above: Performed By: #### C BC ####[facility] Rdywaopquq9034 [place] [id number]. Farhat Leal MCV (RBC) [Entitic vol] 94.9 fL Critically high 80.0-94.0 [facility] Comment on above: Performed By: #### C BC ####[facility] Spupuibtco1628 [place] [id number] Farhat Leal MONO # 1.0 103/ul Critically high 0.3-0.8 [facility] Comment on above: Performed By: #### C BC ####[facility] Nibnteznzf7449 [place] [id number]. Farhat Elvis Monocytes/100 WBC (Bld) 11.3 % Normal 1.7-12.0 [facility] Comment on above: Performed By: #### C BC ####[facility] Gixzsahfww[address] [place], [place] [address]Dr. Farhat Leal NEUT # 6.9 103/ul Critically high 1.4-6.5 [facility] Comment on above: Performed By: #### C BC ####[facility] Oacgyorewc4718 [place] [phone]. Farhat Elvis Neutrophils/100 WBC (Bld) 77.6 % Critically high 43.0-75.0 [facility] Comment on above: Performed By: #### C BC ####[facility] Thejgasekk2222 [place] [phone]. Farhat Elvis Platelet mean volume (Bld) [Entitic vol] 9.7 fL Normal 9.5-13.5 [facility] Comment on above: Performed By: #### C BC ####[facility] Ozluslolos8686 [place] [id number]. Farhat Leal PLT 171 103/ul Normal 150-450 [facility] Comment on above: Performed By: #### C BC ####[facility] Tlmwcaygih1751 [place] [id number]. Farhat Leal RBC 4.30 106/ul Critically low 4.70-6.10 [facility] Comment on above: Performed By: #### C BC ####[facility] Rjuhpjydfo8025 [place] [id number]. Farhat Leal WBC 8.9 103/ul Normal 4.0-11.0 [facility] Comment on above: Performed By: #### C BC ####[facility] Ymdizmjqor9428 [place], [place] [address]Cr. Farhat Leal Covid-19 PCR (CVDTB)on SARS-CoV-2 (COVID-19) RNA JOSH+probe Ql (Unsp spec) Not detected Normal NOT DETECTED [facility] Comment on above: Result [...] for this test is supported by the [place] of Health and Human Service's declaration that [...] be used). Performed By: #### C VDTBH ####[facility] Rrqfqgviiq4304 [place] [id number]. Farhat Leal PROF 14(COMP METB)on 022 Albumin [Mass/Vol] 2.6 g/dL Critically low 3.4-5.0 [facility] Comment on above: Performed By: #### C MP ####[facility] Dyamhfqrzd2171 [place] [id number]. Farhat Leal Albumin/Globulin [Mass ratio] 0.7 {ratio} Normal [facility] Comment on above: Performed By: #### C MP ####[facility] Qrgslfkhzi6612 [place] [phone]. Farhat Leal ALP [Catalytic activity/Vol] 88 U/L Normal 46-116 [facility] Comment on above: Performed By: #### C MP ####[facility] Alfursapnh0926 [place], [place] [address]Im. Farhat Leal ALT [Catalytic activity/Vol] 15 U/L Critically low 16-63 [facility] Comment on above: Performed By: #### C MP ####[facility] Ikwlktqtum7598 [place] [phone]. Farhat Leal Anion gap [Moles/Vol] 11.7 mmol/L Normal Th e [facility] Comment on above: Performed By: #### C MP ####[facility] Gaxigibcqm3921 [place] [id number]. Farhat Leal AST [Catalytic activity/Vol] 25 U/L Normal 15-37 [facility] Comment on above: Performed By: #### C MP ####[facility] Lvbrcgjlel9547 [place] [id number]. Farhat Leal Bilirubin [Mass/Vol] 0.6 mg/dL Normal 0.2-1.0 [facility] Comment on above: Performed By: #### C MP ####[facility] Vnsteraodh3573 [place] [id number]. Farhat Leal Calcium [Mass/Vol] 8.9 mg/dL Normal 8.5-10.[address] [facility] Comment on above: Performed By: #### C MP ####[facility] Yfpysyuyai4361 [place] [id number]. Farhat Leal Chloride [Moles/Vol] 93 mmol/L Critically low 98-107 [facility] Comment on above: Performed By: #### C MP ####[facility] Wxeummpxdq5584 [place] [id number]. Farhat Leal CO2 [Moles/Vol] 28.9 mmol/L Normal 21.0-32.0 [facility] Comment on above: Performed By: #### C MP ####[facility] Jnkrjofius0795 [place] [id number]. Farhat Leal Creatinine [Mass/Vol] 2.09 mg/dL Critically high 0.70-1.30 [facility] Comment on above: Performed By: #### C MP ####[facility] Jgzjlhfjog5630 [place], [place] [address]Ri. Farhat Leal EGFR-AF GRENADIAN 38 mL/min/1.73m2 Critically low >=60 [facility] Comment on above: Performed By: #### C MP ####[facility] Jcgvsbpzhg7169 [place] [id number]. Farhat Leal EGFR-NON AF GRENADIAN 31 mL/min/1.73m2 Critically low >=60 [facility] Comment on above: Performed By: #### C MP ####[facility] Fdiugxcosk1843 [place] [id number]. Farhat Leal Globulin (S) [Mass/Vol] 3.7 g/dL Normal [facility] Comment on above: Performed By: #### C MP ####[facility] Opkspxjmfd7726 [place] [id number]. Farhat Leal Glucose [Mass/Vol] 214 mg/dL Critically high 74-106 [facility] Comment on above: Performed By: #### C MP ####[facility] Dctoojlhyt4913 [place] [id number]. Farhat Leal Potassium [Moles/Vol] 5.6 mmol/L Critically high 3.5-5.1 [facility] Comment on above: Performed By: #### C MP ####[facility] Oivbcbyfnt4123 [place] [id number]. Farhat Leal Protein [Mass/Vol] 6.3 g/dL Critically low 6.4-8.2 [facility] Comment on above: Performed By: #### C MP ####[facility] Aucfbaxtks3753 [place] [id number]. Farhat Leal Sodium [Moles/Vol] 128 mmol/L Critically low 136-145 [facility] Comment on above: Performed By: #### C MP ####[facility] Aokxreikbr6720 [place] [id number]. Farhat Leal Urea nitrogen [Mass/Vol] 65.0 mg/dL Critically high 7.0-18.0 [facility] Comment on above: Performed By: #### C MP ####[facility] Tmnkfzhkts3957 [place] [id number]. Farhat Elvis Urea nitrogen/Creatinine [Mass ratio] 31.1 mg/mg Normal [facility] Comment on above: Performed By: #### C MP ####[facility] Hlxgcmqqvt6898 [place] [id number]. Farhat Elvis Albumin [Mass/Vol] 2.5 g/dL Critically low 3.4-5.0 [facility] Comment on above: Performed By: #### T MYRIAM, CMP ####[facility] Eokxzqnteg344[address] [place], [place] [address]Dr. Farhat Leal Albumin/Globulin [Mass ratio] 0.7 {ratio} Normal [facility] Comment on above: Performed By: #### T MYRIAM, CMP ####[facility] Kvovwsnjsr920[address] [place], [place] [address]Dr. Farhat Elvis ALP [Catalytic activity/Vol] 83 U/L Normal 46-116 [facility] Comment on above: Performed By: #### T MYRIAM, CMP ####[facility] Tnqczwcurp[address] [place], [place] [address]Dr. Farhat Leal ALT [Catalytic activity/Vol] 16 U/L Normal 16-63 [facility] Comment on above: Performed By: #### T MYRIAM, CMP ####[facility] Cezwfbmuga26[address] [place], [place] [address]Dr. Farhat Leal Anion gap [Moles/Vol] 9.7 mmol/L Normal [facility] Comment on above: Performed By: #### T SH, CMP ####[facility] Gmhhuueece6[address] [place], [place] [address]Dr. Farhat Leal AST [Catalytic activity/Vol] 27 U/L Normal 15-37 [facility] Comment on above: Performed By: #### T MYRIAM, CMP ####[facility] Zsvbmpukqp1040 [place] [address]Dr. Farhat Leal Bilirubin [Mass/Vol] 0.5 mg/dL Normal 0.2-1.0 [facility] Comment on above: Performed By: #### T SH, CMP ####[facility] Azcvquzrdt1624[address] [place], [place] [address]Dr. Farhat Leal Calcium [Mass/Vol] 8.8 mg/dL Normal 8.5-10.[address] [facility] Comment on above: Performed By: #### T SH, CMP ####[facility] Qpknlgwjnn507[address] [place], [place] [address]Dr. Farhat Leal Chloride [Moles/Vol] 95 mmol/L Critically low 98-107 [facility] Comment on above: Performed By: #### T SH, CMP ####[facility] Xosdthksbu[address] [place], [place] [address]Dr. Farhat Leal CO2 [Moles/Vol] 30.5 mmol/L Normal 21.0-32.0 [facility] Comment on above: Performed By: #### T SH, CMP ####[facility] Hzrhsuhsns0325[address] [place], [place] [address]Dr. Farhat Leal Creatinine [Mass/Vol] 2.18 mg/dL Critically high 0.70-1.30 [facility] Comment on above: Performed By: #### T SH, CMP ####[facility] Lrklrgoatg0427[address] [place], [place] [address]Dr. Farhat Leal EGFR-AF GRENADIAN 36 mL/min/1.73m2 Critically low >=60 [facility] Comment on above: Performed By: #### T SH, CMP ####[facility] Bbymjtwtkm634[address] [place], [place] [address]Dr. Farhat Leal EGFR-NON AF GRENADIAN 30 mL/min/1.73m2 Critically low >=60 [facility] Comment on above: Performed By: #### T SH, CMP ####[facility] Wvdyejzyzp[address] [place], [place] [address]Dr. Madelynlorri Leal Globulin (S) [Mass/Vol] 3.5 g/dL Normal [facility] Comment on above: Performed By: #### T SH, CMP ####[facility] Obovzrpegj[address] [place], [place] [address]Dr. Farhat Leal Glucose [Mass/Vol] 141 mg/dL Critically high 74-106 T [facility] Comment on above: Performed By: #### T SH, CMP ####[facility] Uujuijfxdi14[address] [place], [place] [address]Dr. Farhat Leal Potassium [Moles/Vol] 5.2 mmol/L Critically high 3.5-5.1 [facility] Comment on above: Performed By: #### T SH, CMP ####[facility] Zumpahpjxt601[address] [place], [place] [address]Dr. Farhat Leal Protein [Mass/Vol] 6.0 g/dL Critically low 6.4-8.2 [facility] Comment on above: Performed By: #### T MYRIAM, CMP ####[facility] Ijyxamktuo[address] [place], [place] [address]Dr. Farhat Leal Sodium [Moles/Vol] 130 mmol/L Critically low 136-145 [facility] Comment on above: Performed By: #### T SH, CMP ####[facility] Paubcthnhg332[address] [place], [place] [address]Dr. Farhat Leal Urea nitrogen [Mass/Vol] 63.0 mg/dL Critically high 7.0-18.0 [facility] Comment on above: Performed By: #### T SH, CMP ####[facility] Zgchodzetq8[address] [place], [place] [address]Dr. Farhat Leal Urea nitrogen/Creatinine [Mass ratio] 28.9 mg/mg Normal [facility] Comment on above: Performed By: #### T SH, CMP ####[facility] Steqiprkkg[address] [place], [place] [address]Dr. Farhat Leal PROTIMEon 09-18-2021 INR Coag (PPP) [Relative time] 1.06 {INR} Normal [facility] Comment on above: Performed By: #### P T, PTT ####[facility] Xonjplkxbt15[address] [place], [place] [address]DrSkylar Leal INR GUIDELINES SEE BELOW Normal [facility] Comment on above: Result Comment: MALINA RED INR: 2.0 - 3.0 CONDITIONS NOT LISTED BELOW 2.5 - 3.5 FOR PROSTHETIC HEART VALVE REPLACEMENT 2.5 - 3.5 RECURRENT THROMBOSIS Performed By: #### P T, PTT ####[facility] Gxmijhnglf3593 [place], [place] [address]Kp. Farhat Leal PT Coag (PPP) [Time] 11.4 s Normal 9.0-11.6 [facility] Comment on above: Performed By: #### P T, PTT ####[facility] Kmoipvmgnt2739 [place], [place] [address]WuSkylar Leal PTTon 09-18-2021 aPTT Coag (Bld) [Time] 27.9 s Normal 22.3-36.2 [facility] Comment on above: Performed By: #### P T, PTT ####[facility] Owxooyilcw0651 [place] [id number] Leal TSHon 09-18-2021 TSH 7.099 uIU/mL Critically high 0.358-3.[address] [facility] Comment on above: Performed By: #### T SH, CMP ####[facility] Gfllhkxnil0852 [place] [address]DrSkylar Leal US SALOME DOP LEG RTon 09-19-19 US SALOME DOP LEG RT Normal [facility] XR CHEST 1 Von 09-18-2021 XR CHEST 1 V Normal [facility] XR HIP RT 2 3V W PELVISon XR HIP RT 2 3V W PELVIS Normal [facility] Vital Signs Date Time Vital Sign Value Performing Clinician Facility 03-18-2023 13:37-0500 Body temperature 98.01 [degF] Perkins QUIQ Work Phone: [facility] 03-18-2023 13:37-0500 Diastolic blood pressure 64 mm[Hg] Perkins QUIQ Work Phone: [facility] 03-18-2023 13:37-0500 Heart rate 72 /min Ni Petznick DO Work Phone: [facility] 03-18-2023 13:37-0500 SaO2% (BldA) [Mass fraction] 98 % Ni Petznick DO Work Phone: [facility] 03-18-2023 13:37-0500 Systolic blood pressure 118 mm[Hg] Nining Whiteznick DO Work Phone: [facility] 07-20-2022 13:35-0400 Body temperature 97.4 [degF] DO Devon Ball Work Phone: [facility] 07-20-2022 13:35-0400 Diastolic blood pressure 50 mm[Hg] DO Devon Ball Work Phone: [facility] 07-20-2022 13:35-0400 Heart rate 67 /min DO Devon Ball Work Phone: [facility] 07-20-2022 13:35-0400 Respiratory rate 20 /min DO Devon Ball Work Phone: [facility] 07-20-2022 13:35-0400 Systolic blood pressure 98 mm[Hg] DO Devon Ball Work Phone: [facility] 06-29-2022 14:46-0400 Body height 193.04 cm DO Devon Ball Work Phone: [facility] 02-26-2022 13:11-0500 Body temperature 96.6 [degF] Hina Peterson MD Work Phone: [facility] 02-26-2022 13:11-0500 Diastolic blood pressure 75 mm[Hg] Hina Peterson MD Work Phone: [facility] 02-26-2022 13:11-0500 Heart rate 75 /min Hina Peterson MD Work Phone: [facility] 02-26-2022 13:11-0500 Systolic blood pressure 88 mm[Hg] Hina Peterson MD Work Phone: [facility] 02-05-2022 08:29-0500 Body temperature 96.69 [degF] [facility] Work Phone: [facility] 02-05-2022 08:29-0500 Diastolic blood pressure 42 mm[Hg] [facility] Work Phone: [facility] 02-05-2022 08:29-0500 Heart rate 79 /min [facility] Work Phone: [facility] 02-05-2022 08:29-0500 SaO2% (BldA) [Mass fraction] 100 % [facility] Work Phone: [facility] 02-05-2022 08:29-0500 Systolic blood pressure 72 mm[Hg] [facility] Work Phone: [facility] 01-12-2022 11:00-0500 Diastolic blood pressure 54 mm[Hg] Alissa Major [employer] Work Phone: [facility] 01-12-2022 11:00-0500 Heart rate 88 /min Alissa Major [employer] Work Phone: [facility] 01-12-2022 11:00-0500 SaO2% (BldA) [Mass fraction] 93 % Alissa Major [employer] Work Phone: [facility] 01-12-2022 11:00-0500 Systolic blood pressure 96 mm[Hg] Alissa Major [employer] Work Phone: [facility] 01-12-2022 10:12-0500 Body temperature 97.9 [degF] Alissa Major [employer] Work Phone: [facility] 01-12-2022 10:12-0500 Respiratory rate 18 /min Alissa Major [employer] Work Phone: [facility] 11-17-2021 15:59-0400 Body height 193 cm No Reeder DO Work Phone: [facility] 11-17-2021 15:59-0400 Body weight 111.58 kg No Reeder DO Work Phone: [facility] 11-17-2021 15:59-0400 Diastolic blood pressure 59 mm[Hg] No Reeder DO Work Phone: [facility] 11-17-2021 15:59-0400 Heart rate 86 /min No Reeder DO Work Phone: [facility] 11-17-2021 15:59-0400 SaO2% (BldA) [Mass fraction] 97 % No Reeder DO Work Phone: [facility] 11-17-2021 15:59-0400 Systolic blood pressure 104 mm[Hg] No Reeder DO Work Phone: [facility] Encounters Encounter Date Encounter Type Care Provider Facility Start: 09-02-2023 End: 09-02-2023 ambulatory MILAGRO [facility] Start: 06-17-2023 End: 06-17-2023 ambulatory NI CABRERA Not Available Start: 05-19-2023 End: 05-19-2023 ambulatory CAITY 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 ([facility]/HCC); 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); Type 1 diabetes mellitus with hypoglycemia and without coma (CMS/HCC); 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 ([facility]/HCC) Start: 02-17-2023 End: 02-17-2023 ambulatory Devon Moreira Other [email or web address] Other Start: 02-17-2023 Telephone encounter Devon Manzo [facility] Start: 01-14-2023 End: 01-14-2023 ambulatory Devon Moreira Other [email or web address] Other Start: 01-14-2023 Sbsq nursing facil c are/day minor complj 15 min Devon Rico [facility] Start: 12-10-2022 End: 12-10-2022 ambulatory Devon Moreira Other [email or web address] Other Start: 12-10-2022 Sbsq nursing facil c are/day minor complj 15 min Devon Rico [facility] Start: 11-12-2022 End: 11-12-2022 ambulatory Devon Moreira Other [email or web address] Other Start: 11-12-2022 Sbsq nursing facil c are/day minor complj 15 min [facility] Start: 10-16-2022 Refill Asia Pike MD Work Phone: [facility] Comment on above: Med Change Request Start: 10-12-2022 End: 10-12-2022 ambulatory Devon Moreira Other [email or web address] Other Start: 10-12-2022 Telephone encounter Devon Moreira [facility] Start: 10-08-2022 End: 10-08-2022 ambulatory Devon Moreira Other [email or web address] Other Start: 10-08-2022 Sbsq nursing facil c are/day new problem 25 min [facility] Start: 09-22-2022 [facility] Comment on above: Rx Refills Start: 09-10-2022 End: 09-10-2022 ambulatory Devon Moreira Other [email or web address] Other Start: 09-10-2022 Sbsq nursing facil c are/day new problem 25 min [facility] Start: 09-09-2022 End: 09-09-2022 ambulatory [facility] Start: 08-06-2022 End: 08-06-2022 ambulatory Devon Moreira Other [email or web address] Other Start: 08-06-2022 Sbsq nursing facil c are/day new problem 25 min Devon Moreira [facility] Start: 07-22-2022 End: 07-22-2022 ambulatory Devon Moreira Other [email or web address] Other Start: 07-22-2022 Telephone encounter [facility] Start: 07-20-2022 End: 07-20-2022 ambulatory Sadia Luisey Facility:[facility] Start: 07-20-2022 End: 07-20-2022 ambulatory DO Devon Moreira Work Phone: [facility] Work Phone: Start: 07-20-2022 End: 07-20-2022 Discharged Recurring DO Devon Moreira Work Phone: [facility] Work Phone: Start: 07-13-2022 End: 07-13-[address] DEVON MOREIRA Facility:[facility] Start: 07-10-2022 End: 07-10-[address] DEVON MOREIRA Facility:[facility] Start: 07-03-2022 End: 07-03-[address] DEVON MOREIRA Facility:[facility] Start: 06-26-2022 End: 06-26-[address] DEVON MOREIRA Facility:[facility] Start: 06-26-2022 End: 06-26-[address] DEVON MOREIRA Facility:[facility] Start: 06-25-2022 End: 06-25-2022 ambulatory Devon Moreira Other [employer] Other Start: 06-25-2022 Sbsq nursing facil c are/day minor complj 15 min Devon Moreira [facility] Start: 06-19-2022 End: 06-19-[address] DEVON MOREIRA Facility:[facility] Start: 06-15-2022 End: 07-15-2022 ambulatory SHAIKH Kate MURRAY Facility:[facility] Start: 06-12-2022 End: 06-12-[address] DOCTOR WALSH Facility:[facility] Start: 06-05-2022 Sbsq nursing facil c are/day new problem 25 min Devon Moreira [facility] Start: 06-05-2022 End: 06-05-[address] DEVON MOREIRA [facility] [employer] Other Start: 05-29-2022 End: 05-29-[address] DEVON MOREIRA Facility:[facility] Start: 05-22-2022 End: 05-22-[address] DEVON MOREIRA Facility:[facility] Start: 05-20-2022 End: 05-20-[address] DEVON MOREIRA Facility:[facility] Start: 05-18-2022 End: 06-12-2022 ambulatory SHAIKH Kate MURRAY Facility:[facility] Start: 05-15-2022 End: 05-15-[address] DEVON MOREIRA Facility:[facility] Start: 05-13-2022 End: 05-13-2022 ambulatory Van Olivarez APRN.DECORATOR [employer] Work Phone: [facility] Comment on above: results Start: 05-13-2022 E-mail encounter fro m caregiver Van Olivarez APRN.DECORATOR [employer] Work Phone: [facility] Start: 05-08-2022 End: 05-08-[address] DEVON MOREIRA Facility:[facility] Start: 05-07-2022 End: 05-07-2022 ambulatory Devon Moreira Other [employer] Other Start: 05-07-2022 Sbsq nursing facil c are/day new problem 25 min Devon Moreira [facility] Start: 05-06-2022 End: 05-06-[address] DEVON MOREIRA Facility:[facility] Start: 05-01-2022 End: 05-01-[address] DEVON MOREIRA Facility:[facility] Start: 04-28-2022 ambulatory SHAIKH Kate MURRAY Facilit y:[facility]1 Start: 04-24-2022 End: 04-24-[address] JACOBO MONOZN . Facility:[facility] Start: 04-17-2022 End: 04-17-[address] DEVON MOREIRA Facility:[facility] Start: 04-15-2022 End: 04-16-[address] DEVON MOREIRA Facility:[facility] Start: 04-15-2022 End: 04-15-[address] DEVON MOREIRA Facility:[facility] Start: 04-13-2022 End: 04-13-[address] DEVON MOREIRA Facility:[facility] Start: 04-02-2022 ambulatory Van cortes APRN.DECORATOR [employer] Work Phone: [facility] Start: 04-01-2022 End: 04-01-[address] DEVON MOREIRA Facility:[facility] Start: 03-22-2022 Refill Asia Pike MD Work Phone: [facility] Comment on above: Med Change Request Start: 03-21-2022 ambulatory SHAIKH Kate MURRAY Facilit y:[facility]1 Start: 03-11-2022 End: 03-11-[address] DEVON MOREIRA Facility:[facility] Start: 02-27-[address] 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 Start: 01-26-2022 End: 01-26-[address] DEVON MOREIRA Facility:[facility] Start: 01-20-2022 Telephone encounter Van Olivarez APRN.CNP Work Phone: [facility] Comment on above: Results Start: 01-19-2022 End: 01-19-[address] DEVON MOREIRA Facility:[facility] Start: 01-16-2022 ambulatory SHAIKH Kate MURRAY Facilit y:[facility]1 Start: 01-12-2022 End: 01-12-2022 Subsequent hospital visit by physician Alissa Chavira APRN.DECORATOR [employer] Work Phone: Angio Comment on above: ILIANA (acute kidney in jury) ([facility]) [N17.9] Start: 12-30-2021 End: 12-30-2021 ambulatory Paresh Fonseca MD Work Phone: Infectious Disease Comment on above: MRSA bacteremia (Arabella munira Dx); Diabetic foot ulcer with osteomyelitis (HCC) Start: 12-30-2021 End: 12-30-2021 Telemedicine consultation with patient Paresh Fonseca MD Work Phone: [facility] Start: 12-29-2021 End: 12-29-[address] [...] Start: 12-08-2021 Orders Only Artur Burger ry WASHCLOTH FOLDER.DECORATOR [employer] Work Phone: Transplant Center Comment on above: Kidney replaced by t ransplant (Primary Dx) Start: 12-07-2021 ambulatory Paresh Fonseca MD Work Phone: [facility] Comment on above: CoPat Start (copat s top 12/27/21) Start: 12-05-2021 Telephone encounter Paresh Fonseca MD Work Phone: Infectious Disease Comment on above: Patient Update (evus held discussion/) Start: 12-01-2021 Follow-up encounter [facility] Provider [facility] Start: 12-01-2021 Patient encounter procedure [facility] Prov ider [facility] Department Start: 11-23-2021 End: 11-28-2021 Evaluation [...] management encounter Start: 11-14-2021 End: 11-15-2021 ambulatory [facility] Facility:[facility] Start: 10-24-2021 End: 11-15-2021 ambulatory SHAIKH Kate MURRAY Facility:[facility] Start: 10-22-2021 End: 10-23-2021 ambulatory [facility] Facility:[facility] Start: 10-06-2021 ambulatory Van cortes WASHCLOTH FOLDER.DECORATOR [employer] Work Phone: [facility] Start: 09-30-2021 Refill Asia Pike MD Work Phone: [facility] Comment on above: Refill Request Start: 09-19-2021 End: 09-24-2021 Evaluation and management of inpatient DR PROSPER LEES Facility:[facility]1 Start: 09-18-2021 End: 09-19-[address] DEVON MOREIRA Facility:[facility] Start: 07-11-2021 Refill Asia Pike MD Work Phone: [facility] Comment on above: Refill Request Start: 06-05-2021 Telephone encounter Van Olivarez WASHCLOTH FOLDER.DECORATOR [employer] Work Phone: [facility] Comment on above: Results Start: 02-05-2021 End: 02-13-2021 ambulatory UNKNOWN PROVIDER Facility:[facility] Procedures Date Procedure Procedure Detail Performing Clinician Start: 05-19-2023 Follow-up visit Follow-up CAITY IBRAHIM Start: 03-18-2023 Hemoglobin glycosyla rk a1c Ni Cabrera DO Work Phone: Start: 02-05-2022 Creatinine other source Asia Pike MD Work Phone: Start: 02-05-2022 Urnls dip stick/tabl et rgnt auto w/o microscopy Asia Pike MD Work Phone: Start: 01-12-2022 Prothrombin time Alissa Chavira APRN.DECORATOR [employer] Work Phone: Start: 12-01-2021 PACEMAKER CLINIC CHECK [facility] Provider Start: 11-29-2021 Microscopic examinat ion of blood, culture DR PROSPER LEES Comment on above: Performed By: #### B [id number] ####[place] [id number] Leal Start: 11-27-2021 Insertion of Infusio n [...] renal transplant KIDNEY TRANSPLANT STATUS Van Krusejaylan WASHCLOTH FOLDER.DECORATOR [employer] Work Phone: History of renal transplant Kidney replaced by transplant Artur Chen APRN.DECORATOR [employer] Work Phone: History of renal transplant Kidney replaced by transplant Kidney [facility] Work Phone: History of renal transplant Devon Moreira Other History of renal transplant Kidney replaced by transplant Asia Pike MD Work Phone: History of renal transplant Devon Rico Other Plan of Treatment Date Care Activity Detail Author Start: 06-17-2023 End: 06-17-2023 Patient encounter procedure 06/17/2023 2:15 PM EDT Office Visit [facility] [address] [place] [address] Ni Cabrera, DO [address] [place] [address] [facility] [address] Start: 06-16-2023 Hemoglobin A1c measurement Diabetes: Hemoglobin A1C [facility] Start: 02-26-2023 BP CONTROLLED (<130/80) BP CONTROLLE D (<130/80) [facility] Start: 02-05-2023 BP CONTROLLED (<130/80) BP CONTROLLE D (<130/80) [facility] Start: 01-12-2023 BP CONTROLLED (<130/80) BP CONTROLLE D (<130/80) [facility] Start: 11-17-2022 BP CONTROLLED (<130/80) BP CONTROLLE D (<130/80) [facility] Start: 10-16-2022 Influenza vaccination C [facility] Start: 05-15-2022 Medicare Annual Wellness (AWV) Medicare Annual Wellness (AWV) [facility] Start: 04-08-2022 BP CONTROLLED (<130/80) BP CONTROLLE D (<130/80) [facility] Start: 02-15-2022 ADVANCE DIRECTIVE DISCUSSION ADVANCE DIRECTIVE DISCUSSION [facility] Start: 02-15-2022 DEPRESSION ASSESSMENT DEPRESSION ASS ESSMENT [facility] Start: 02-05-2022 COVID-19 VACCINE (5 - Yung risk series) COVID-19 VACCINE (5 - Yung risk series) [facility] Start: 11-27-2021 COVID-19 VACCINE (4 - Booster for Yung series) COVID-19 VACCINE (4 - Booster for Yung series) [facility] Start: 11-04-2021 Hemoglobin A1c/Hemoglobin.total in Blood HBA1C [facility] Start: 10-16-2021 Influenza vaccination C [facility] Start: 03-26-2021 COVID-19 VACCINE (3 - Yung risk 3-dose series) COVID-19 VACCINE (3 - Yung risk 3-dose series) [facility] Start: 03-26-2021 COVID-19 VACCINE (3 - Yung risk series) COVID-19 VACCINE (3 - Yung risk series) [facility] Start: 02-15-2021 ADVANCE DIRECTIVE DISCUSSION ADVANCE DIRECTIVE DISCUSSION [facility] Start: 02-15-2021 DEPRESSION ASSESSMENT DEPRESSION ASS ESSMENT [facility] Start: 01-05-2016 Hepatitis B screening URINE AL BUMIN:CREATININE RATIO [facility] Start: 07-31-2015 Pneumococcal Vaccine : 65+ Years (3 - PCV) Pneumococcal Vaccine: 65+ Years (3 - PCV) [facility] Start: 04-06-2015 Hemoglobin A1c/Hemoglobin.total in Blood HBA1C [facility] Start: 11-22-2010 Hepatitis B surface antibody level LDL CHOLESTEROL [facility] Start: 2009 ADULT PREVNAR-13 ADULT PREVNAR-13 Cl [facility] Start: 2009 PNEUMOVAX AGE 65 AND OVER WITH 5YR LOOKBACK (#1) PNEUMOVAX AGE 65 AND OVER WITH 5YR LOOKBACK (#1) [facility] Start: 1994 SHINGRIX VACCINE (1 of 2) SHINGRIX VACCINE (1 of 2) [facility] Start: 10-18-1963 HEPATITIS A (1 of 2 - Risk 2-dose series) HEPATITIS A (1 of 2 - Risk 2-dose series) [facility] Start: 10-18-1963 Hepatitis A Vaccine (1 of 2 - Risk 2-dose series) Hepatitis A Vaccine (1 of 2 - Risk 2-dose series) [facility] Start: 10-18-1963 SHINGRIX VACCINE (1 of 2) SHINGRIX VACCINE (1 of 2) [facility] Start: 10-18-1963 Urine microalbumin profile [facility] Start: 1962 ANNUAL PCP TEAM VOLLEYBALL COMMENTATOR MATTEHW DISEASE VISIT ANNUAL PCP TEAM CHRONIC DISEASE VISIT [facility] Start: 1956 Adult depression screening assessment DEPRESSION SCREENING [facility] Start: 1954 3 comp foot exam completed DIABETIC FOOT EXAM [facility] Start: 1954 Glaucoma screening Diabetes: R etinopathy Screening [facility] Start: 1954 Hepatitis C antibody , confirmatory test DILATED RETINAL EXAM [facility] Start: 1950 Pneumococcal Vaccine : 65+ (1 - PCV) Pneumococcal Vaccine: 65+ (1 - PCV) [facility] Start: 1950 PNEUMOCOCCAL: 65+ (1 - PCV) PNEUMOCOCCAL: 65+ (1 - PCV) [facility] Start: 1945 HEPATITIS A (1 of 2 - Risk 2-dose series) HEPATITIS A (1 of 2 - Risk 2-dose series) [facility] URINALYSIS, REFLEX MICROSCOPIC URINALYSIS, REFLEX MICROSCOPIC Lab Routine Screening for genitourinary condition Ordered: 10/06/2021 [facility] Work Phone: Comment on above: Ordered: 10/06/2021 URINALYSIS, REFLEX MICROSCOPIC URINALYSIS, REFLEX MICROSCOPIC Lab Routine Screening for genitourinary condition Ordered: 04/02/2022 [facility] Work Phone: Comment on above: Ordered: 04/02/2022 End: 11-17-2022 US LEG ARTERIAL PERIPH UNL VAS LAB US LEG ARTERIAL PERIPH UNL VAS LAB Vascular Lab Routine PAD (peripheral artery disease) (HCC) Nonhealing ulcer of heel (HCC) 1 Occurrences starting 11/17/2021 until 11/17/2022 [facility] Work Phone: Comment on above: 1 Occurrences starti ng 11/17/2021 until 11/17/2022 End: 11-17-2022 US LEG VEIN DVT UNL VAS LAB US LEG VEIN DVT UNL VAS LAB Vascular Lab Routine Acute deep vein thrombosis (DVT) of proximal end of right lower extremity (HCC) 1 Occurrences starting 11/17/2021 until 11/17/2022 [facility] Work Phone: Comment on above: 1 Occurrences starti ng 11/17/2021 until 11/17/2022 [facility] BROTHERS CT & VAS DANIEL BROTHERS CT & VAS [facility] Immunizations Immunization Date Immunization Notes Care Provider Fa [facility] 12-11-2021 COVID-19 booster vaccine, age 12+ yr, bivalent (PFIZER-BIONTturntable.fm) Paresh Fonseca MD Work Phone: [facility] 12-11-2021 influenza, high-dose , quadrivalent vaccine (FLUZONE HIGH DOSE QUADRIVALENT) Paresh Fonseca MD Work Phone: [facility] 12-11-2021 influenza virus vaccine, unspecified formulation [facility] 10-24-2021 influenza, high dose seasonal, preservative-free Ni Petznick DO Work Phone: [facility] 01-19-2019 influenza, high dose seasonal, preservative-free Ni Petznick DO Work Phone: [facility] 11-25-2017 Seasonal trivalent influenza vaccine, adjuvanted, preservative free Ni Petznick DO Work Phone: [facility] 11-05-2016 influenza, high dose seasonal, preservative-free Ni Petznick DO Work Phone: [facility] 07-30-2014 pneumococcal polysaccharide vaccine, 23 valent Ni Cabrera DO Work Phone: [facility] 03-09-2011 influenza virus vaccine, unspecified formulation Van Olivarez WASHCLOTH FOLDER.DECORATOR [employer] Work Phone: [facility] 12-17-2007 influenza virus vaccine, unspecified formulation Van Lard WASHCLOTH FOLDER.DECORATOR [employer] Work Phone: [facility] Work Phone: 02-11-2006 influenza virus vaccine, unspecified formulation Van Lard WASHCLOTH FOLDER.DECORATOR [employer] Work Phone: [facility] Work Phone: 12-07-2003 influenza virus vaccine, unspecified formulation Van Lard WASHCLOTH FOLDER.DECORATOR [employer] Work Phone: [facility] Work Phone: 12-07-2003 pneumococcal polysaccharide vaccine, 23 valent Van Olivarez WASHCLOTH FOLDER.DECORATOR [employer] Work Phone: [facility] Work Phone: NEGATED: Highlighted row has not occurred!12-10-2021 COVID-19 booster vaccine, age 12+ yr, bivalent (PFIZER-BIONTturntable.fm) Paresh Fonseca MD Work Phone: [facility] NEGATED: Highlighted row has not occurred!12-10-2021 influenza, high-dose, quadrivalent vaccine (FLUZONE HIGH DOSE QUADRIVALENT) Paresh Fonseca MD Work Phone: [facility] Payers Date Payer Category Payer Medicare MEDICARE MEDICAR E A AND B [id number] 2009-Present [phone] [place] [address] Medicare [id number] 2009 Medicare [id number] .[id number] 2009 Unknown [employer] [place] [employer] [place] [employer] SUPPLEMENT [id number] 2009-Present [phone] [address] [place] [address] Indemnity [id number] 1.2.840.579110.1.13.159.2.7.3 .[id number] 2009 Unknown [id number]. 1.13.159.2.7.3 .832148.315 2009 Unknown [id number] 2.16.8 40.1.412183.19 2009 Unknown [id number] 1959 Medicare [id number] 1959 Self-pay 1944 Unknown [id number] 2.16.840.1.946456.3.579.2.732 1944 Unknown [id number] 2.16.840.1.650482.3.579.2.593 1944 Unknown [id number] 2.16.840.1.565884.3.579.2.593 1944 Unknown [id number] 2.16.840.1.043763.3.579.2.593 1944 Unknown [id number] 2.16.840.1.414414.3.579.2.593 1944 Unknown [id number] 2.16.840.1.947270.3.579.2.593 1944 Unknown [id number] 2.16.840.1.434033.3.579.2.593 1944 Unknown [id number] 2.16.840.1.458133.3.579.2.593 1944 Unknown [id number] 2.16.840.1.170009.3.579.2.593 1944 Unknown [id number] 2.16.840.1.026619.3.579.2.593 1944 Unknown [id number] 2.16.840.1.039660.3.579.2.593 1944 Unknown [id number] 2.16.840.1.871667.3.579.2.593 1944 Unknown [id number] 2.16.840.1.302163.3.579.2.593 1944 Unknown [id number] 2.16.840.1.567183.3.579.2.593 1944 Unknown [id number] 2.16.840.1.843759.3.579.2.593 1944 Unknown [id number] 2.16.840.1.997996.3.579.2.593 1944 Unknown [id number] 2.16.840.1.357560.3.579.2.593 1944 Unknown [id number] 2.16.840.1.894332.3.579.2.593 1944 Unknown [id number] 2.16.840.1.792208.3.579.2.593 1944 Unknown [id number] 2.16.840.1.048386.3.579.2.593 1944 Unknown [id number] 2.16.840.1.748928.3.579.2.593 1944 Unknown [id number] 2.16.840.1.462756.3.579.2.593 1944 Unknown [id number] 2.16.840.1.683643.3.579.2.593 1944 Unknown [id number] 2.16.840.1.190360.3.579.2.593 1944 Unknown [id number] 2.16.840.1.459103.3.579.2.593 1944 Unknown [id number] 2.16.840.1.794722.3.579.2.593 1944 Unknown [id number] 2.16.840.1.857341.3.579.2.593 1944 Unknown [id number] 2.16.840.1.452003.3.579.2.593 1944 Unknown [id number] 2.16.840.1.416589.3.579.2.593 1944 Unknown [id number] 2.16.840.1.695224.3.579.2.593 1944 Unknown [id number] 2.16.840.1.876092.3.579.2.593 1944 Unknown [id number] 2.16.840.1.466304.3.579.2.593 1944 Unknown [id number] 2.16.840.1.473196.3.579.2.593 1944 Unknown [id number] 2.16.840.1.433087.3.579.2.593 1944 Unknown [id number] 2.16.840.1.202219.3.579.2.593 1944 Unknown [id number] 2.16.840.1.448452.3.579.2.593 1944 Unknown [id number] 2.16.840.1.197669.3.579.2.593 1944 Unknown [id number] 2.16.840.1.236788.3.579.2.593 1944 Unknown [id number] 2.16.840.1.188921.3.579.2.593 1944 Unknown [id number] 2.16.840.1.732799.3.579.2.593 1944 Unknown [id number] 2.16.840.1.068885.3.579.2.593 1944 Unknown [id number] 2.16.840.1.364642.3.579.2.593 1944 Unknown [id number] 2.16.840.1.043694.3.579.2.593 1944 Unknown [id number] 2.16.840.1.590802.3.579.2.593 1944 Unknown [id number] 2.16.840.1.736284.3.579.2.593 1944 Unknown [id number] 2.16.840.1.351043.3.579.2.593 1944 Unknown [id number] 2.16.840.1.275789.3.579.2.593 1944 Unknown [id number] 2.16.840.1.380808.3.579.2.125 9 1944 Unknown [id number] 2.16.840.1.586330.3.579.2.125 9 Medicare Medicare Outpatient [id number] 2T [id number] Unknown [id number] 2.16.840.1.462203.3.579.2.593 Unknown [id number] 2.16.840.1.753766.3.579.2.593 Unknown [id number] 2.16.840.1.567580.3.579.2.531 Social History Date Type Detail Facility Start: 03-09-2011 End: 07-07-2022 Tobacco smoking status NHIS Ex-smoker [facility] Work Phone: End: 02-15-1975 History of tobacco use Current smoker [facility] Work Phone: End: 02-15-1975 History of tobacco use Cigarette Smoker [facility] Work Phone: Start: 04-08-2021 End: 01-12-2023 Alcohol intake Current drinker of alcohol (finding) [facility] Start: 1945 Sex Assigned At Not on file [facility] Start: 03-09-2011 End: 10-20-2022 Cigarettes smoked current (pack per day) - Reported 1 [facility] Work Phone: Start: 03-09-2011 End: 02-26-2022 Tobacco use and exposure Smokeless tobacco non-user [facility] Start: 09-25-2021 History SDOH Financial 5 [facility] Start: 09-25-2021 History SDOH Food Worry 1 [facility] Start: 09-25-2021 History SDOH Transpo rt Med 2 [facility] Start: 09-14-2021 End: 01-12-2022 Exposure to SARS-CoV-2 (event) Not sure [facility] Start: 02-26-2022 End: 10-20-2022 Sex Assigned At [facility] Work Phone: Start: 1945 Sex Assigned At Male F [facility] How hard is it for y ou to pay for the very basics like food, housing, medical care, and heating Not hard at all [facility] Work Phone: (I/We) worried shiloh er (my/our) food would run out before (I/we) got money to buy more. Never true [facility] Work Phone: In the past 12 month s, was there a time when you were not able to pay the mortgage or rent on time? No [facility] Work Phone: Start: 03-18-2023 Alcohol intake Ex-drinker (finding) [facility] How often to you hav e a drink containing alcohol? Never [facility] Medical Equipment Procedure Code Equipment Code Equipment Original Text Equipment Identifier Dates Tray Powerline S urecuff 5fr Polyurethane Catheter 1 Lumen Microintroducer - [id number] Start: 12-06-2021 Clinical Notes 06-05-2021 to [...] at about 50-60 systolic. patient with friend/ marine engine driver from facility, we will take patient [...] of the right coronary artery with robust mlym-tl-ncfda collaterals. 5. Normal global left ventricular systolic [...] Follow up with Dr. Galvez in the [facility] in the next 2 weeks; he may follow up with Dr. Orosco as needed for interventional issues. 5. Follow up wi (more content not included)... [facility] 04-11-2023 Evaluation note Encounter Date Diagnosis [...] (ICD-10 - Z89.619) WC dependent. 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 He is being transported by a marine engine driver. 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 Graydon H [place] control is stable overall. , The patient [...] in the morning. CONTINUOUS BLOOD GLUC SENSOR (HealthkartSTYLE SHAAN 14 DAY SENSOR) MISC Inject 1 [...] mouth in the morning. documented in this encounterFitzgibbon [id number] Evaluation note* Encounter Date Diagnosis Assessment Notes [...] are maintaining regular scheduled appts with their front end developer javascript html css. No bleeding complications Dec, Hyperlipidemia LDL goal [...] fluid balance and to avoid dehydration. Dec, MCC (current) use of insulin (ICD-10 - Z79.4) [email or web address] Other 10-26-2023 Evaluation note* Encounter Date Diagnosis Assessment Notes Treatment Notes Treatment Clinical Notes Nov, Longstanding persistent atrial fibrillation (ICD-10 - I48.11) This patient is in NSR or rate controlled. This patient is anticoagulated to prevent thromboembolic events. They are maintaining regular scheduled appts with their front end developer javascript html css. No bleeding complications Nov, Hyperlipidemia LDL goal [...] Monthly labs to transplant clinic Nov, terminal clerk (current) use of insulin (ICD-10 - Z79.4) [email or web address] Other 09-28-2023 Evaluation note* Encounter Date Diagnosis [...] are maintaining regular scheduled appts with their front end developer javascript html css. No bleeding complications Oct, Type 1 diabetes [...] Z94.0) Continue routine surveillance labs. Oct, terminal clerk (current) use of insulin (ICD-10 - Z79.4) [email or web address] Other 09-01-2023 Miscellaneous Notes* Telephone Encounter - Mary Martinez - 10/16/2022 1:08 PM EDT Pharmacy comment: REQUEST FOR 90 DAYS PRESCRIPTION. DX Code Needed. 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 No bleeding complications Sep, Type 1 diabetes [...] for cerebrovascular and cardiovascular disease. Sep, terminal clerk (current) use of insulin (ICD-10 - Z79.4) Sep, Kidney transplant status (ICD-10 - Z94.0) f/u transplant clinic Continue surveillance labs [email or web address] Other 08-08-2023 Miscellaneous Notes* Telephone Encounter - Ariadna Mcdowell Tech - 09/22/2022 8:58 AM EDT Pharmacy requesting refills as follows: Requested Prescriptions Pending Prescriptions Disp Refills tacrolimus IR (PROGRAF) 1 mg capsule Sig: Take 1 capsule by mouth DAILY AT 6 PM. Please review and advise. Ariadna Mcdowell, documented in this encounterPromedica Defiance [facility] Hospital07-27-2023 Evaluation note* Encounter Date Diagnosis Assessment Notes Treatment Notes Treatment Clinical Notes Aug, Longstanding persistent atrial fibrillation (ICD-10 - I48.11) This patient is in NSR or rate controlled. This patient is anticoagulated to prevent thromboembolic events. They are maintaining regular scheduled appts with their front end developer javascript html css. No s/s bleeding Aug, Type 1 diabetes [...] risk for cerebrovascular and cardiovascular disease. Aug, MCC (current) use of insulin (ICD-10 - Z79.4) Aug, Kidney transplant status (ICD-10 - Z94.0) Continue close surveillance w/ labs [email or web address] Other 07-26-2023 NoteUT Electrophysiology Consult Note Reason [...] at about 50-60 systolic. patient with friend/ marine engine driver from facility, we will take patient [...] of the right coronary artery with robust [id number] collaterals. 5. Normal global left ventricular systolic [...] Follow up with Dr. Galvez in the [facility] in the next 2 weeks; he may follow up with Dr. Orosco as needed for interventional issues. 5. Follow up with Dr. Devon Moreira as scheduled. PMH: Past Medical History: Diagnosis Date Abnormal ECG Arrhythmia Atrial fibrillation (CMS/HCC) Chronic kidney disease Coronary artery disease Diabetes mellitus (CMS/HCC) (more content not included)...[facility]07-26-2023 NotePatient here for 1.5 year follow up and device check. Lightheaded in the office today, as BP is very low. He denies chest pain, SOB, palpitations, and bleeding on warfarin. Had routine labs last week. Review of Systems Musculoskeletal: Positive for arthritis, joint pain and myalgias. Neurological: Positive for light-headedness. All other systems reviewed and are negative.[facility] 08-06-2022 Evaluation note* Encounter Date Diagnosis [...] are maintaining regular scheduled appts with their front end developer javascript html css. No bleeding complications Jul, Type 1 diabetes [...] for cerebrovascular and cardiovascular disease. Jul, terminal clerk (current) use of insulin (ICD-10 - Z79.4) Jul, Kidney transplant status (ICD-10 - Z94.0) Monthly labs, ongoing surveillance from transplant clinic [email or web address] Other 05-15-2023 Progress note Author Sadia Aguilar [facility] June 29, 2022 2:47pm Note Date/Time June 29, 2022 2:46p m [facility] [address] [place] [address] Wound Center Provider Note Signed Patient: Alex Almonte MR#: [id number] : 1945 Acct:[id number] Age/Sex: 76 / M Copies to: DO Sadia Whyte, DAVID~ HPI Date of Visit Date of Visit: Date of Service: 06/29/2022 Time of Service: 14:45 Narrative HPI: 12/30/21 Alex is a 76 year old [facility] visit for eval and treatment of a sacral/coccyx area pressure ulcer. He resides at [facility]. There is an CLAMPER present for the visit. Medicalhoney gel will [...] his brief that was cleaned by this designer/writer as well as another nursing staff member, [...] from initial visit here Mode of Arrival/ Pharmaceutical Plant Operator: Facility vehicle Assistive Device Used Today: Wheelchair and Indra Lives with:: Care/Nursing Facility Appetite Description: Within Normal Limits Who helps w/ dressing change?: Nursing Facility Why Do You Need Help?: Can't Reach Ulcer, Limited mobility and Taxing effort to leave home Smoking Status: Former smoker [facility] Medical History (Updated 03/03/22 @ 14:41 by [...] Ulcer/Injury Staging: Unstageable Bed Appearance: Beefy Red, Nooksack, Yellow and Rolled Edges Percent of Wound [...] By: <Electronically signed by DAVID Aguilar> 06/29/221446 [facility] Work Phone: 1(787) 804-752105-11-2023 Evaluation note* Encounter Date Diagnosis Assessment Notes [...] are maintaining regular scheduled appts with their front end developer javascript html css. No bleeding complications June, Hyperlipidemia LDL goal <100 (ICD-10 - E78.5) Instructed on diet and exercise with continued statin therapy.Discussed the beneficial effects of lowering cholesterol in reducing the risk for cerebrovascular and cardiovascular disease. June, MCC (current) use of insulin (ICD-10 - Z79.4) June, Kidney transplant status (ICD-10 - Z94.0) No s/s rejection [email or web address] Other 04-24-2023 Progress note Author Sadia Aguilar [facility] June 08, 2022 2:10pm Note Date/Time June 08, 2022 2:1 0pm [facility] [address] [place] [address] Wound Center Provider Note Signed Patient: Alex Almonte MR#: [id number] : 1945 Acct:[id number] Age/Sex: 76 / M Copies to: DO Sadia Whyte APRN~ HPI Date of Visit Date of Visit: Date of Service: 06/08/2022 Time of Service: 14:07 Narrative HPI: 12/30/21 Alex is a 76 year old male [facility] an[facility] visit for eval and treatment of a sacral/coccyx area pressure ulcer. He resides at [facility]. There is an CLAMPER present for the visit. Medicalhoney gel will [...] his brief that was cleaned by this designer/writer as well as another nursing staff member, [...] from initial visit here Mode of Arrival/ Pharmaceutical Plant Operator: Facility vehicle Assistive Device Used Today: Wheelchair and Indra Lives with:: Care/Nursing Facility Appetite Description: Within Normal Limits Who helps w/ dressing change?: Nursing Facility Why Do You Need Help?: Can't Reach Ulcer, Limited mobility and Taxing effort to leave home Smoking Status: Former smoker [facility] Medical History (Updated 03/03/22 @ 14:41 by [...] Ulcer/Injury Staging: Unstageable Bed Appearance: Beefy Red, Nooksack, Yellow and Rolled Edges Percent of Wound [...] <Electronically signed by DAVID Aguilar> 06/08/22 1410 [facility] Work Phone: 1([phone]) 986-411704-21-2023 Evaluation note* Encounter Date Diagnosis Assessment Notes [...] are maintaining regular scheduled appts with their front end developer javascript html css. May, MCC (current) use of insulin (ICD-10 - Z79.4) May, Kidney transplant status (ICD-10 - Z94.0) routine labs per clinic. 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 No open ulcerations present Pain controlled [email or web address] Other 03-27-2023 Progress note Author Sadia Aguilar [facility] May 11, 2022 1:41pm Note Date/Time May 11, 2022 1:4 0pm [facility] [address] [place] [address] Wound Center Provider Note Signed Patient: Alex Almonte MR#: [id number] : 1945 Acct:[id number] Age/Sex: 76 / M Copies to: DO Sadia Whyte APRN~ HPI Date of Visit Date of Visit: Date of Service: 05/11/2022 Time of Service: 13:38 Narrative HPI: 12/30/21 Alex is a 76 year old male [facility] an[facility] visit for eval and treatment of a sacral/coccyx area pressure ulcer. He resides at [facility]. There is an CLAMPER present for the visit. Medicalhoney gel will [...] his brief that was cleaned by this designer/writer as well as another nursing staff member, [...] from initial visit here Mode of Arrival/ Pharmaceutical Plant Operator: Facility vehicle Assistive Device Used Today: Wheelchair and Indra Lives with:: Care/Nursing Facility Appetite Description: Within Normal Limits Who helps w/ dressing change?: Nursing Facility Why Do You Need Help?: Can't Reach Ulcer, Limited mobility and Taxing effort to leave home Smoking Status: Former smoker [facility] Medical History (Updated 03/03/22 @ 14:41 by [...] Ulcer/Injury Staging: Unstageable Bed Appearance: Beefy Red, Nooksack and Yellow Percent of Wound Bed Granulated/Red: [...] <Electronically signed by DAVID Aguilar> 05/11/22 1341 [facility] Work Phone: 1(763) 486-403503-23-2023 Evaluation note* Encounter Date Diagnosis Assessment Notes [...] are maintaining regular scheduled appts with their front end developer javascript html css. Apr, Type 1 diabetes mellitus with hyperglycemia [...] reviewed at the office visit Apr, terminal clerk (current) use of insulin (ICD-10 - Z79.4) Apr, Kidney transplant status (ICD-10 - Z94.0) Serial labs by clinic Hydrate, avoid NSAIDS [email or web address] Other 03-10-2023 NoteHNO ID: [id number] Author: Keyur Brown MD Service: ? Author Type: Physician Type: Progress Notes Filed: 04/24/2022 10:32 AM Note Text: Encounter opened in error, patient not seen.[facility]02-28-2023 Progress note Author Sadia Aguilar [facility] April 14, 2022 2:19pm Note Date/Time April 14, 2022 2:18pm [facility] [address] [place] [address] Wound Center Provider Note Signed Patient: Alex Almonte MR#: [id number] : 1945 Acct:[id number] Age/Sex: 76 / M Copies to: DO Sadia Whyte APRN~ HPI Date of Visit Date of Visit: Date of Service: 04/14/2022 Time of Service: 14:18 Narrative HPI: 12/30/21 Alex is a 76 year old male [facility] an[facility] visit for eval and treatment of a sacral/coccyx area pressure ulcer. He resides at [facility]. There is an CLAMPER present for the visit. Medicalhoney gel will [...] his brief that was cleaned by this designer/writer as well as another nursing staff member, [...] from initial visit here Mode of Arrival/ Pharmaceutical Plant Operator: Facility vehicle Assistive Device Used Today: Wheelchair and Indra Lives with:: Care/Nursing Facility Appetite Description: Within Normal Limits Who helps w/ dressing change?: Nursing Facility Why Do You Need Help?: Can't Reach Ulcer, Limited mobility and Taxing effort to leave home Smoking Status: Former smoker [facility] Medical History (Updated 03/03/22 @ 14:41 by [...] Ulcer/Injury Staging: Unstageable Bed Appearance: Beefy Red, Nooksack and Yellow Percent of Wound Bed Granulated/Red: [...] <Electronically signed by DAVID Aguilar> 04/14/22 141 [facility] Work Phone: 1(751) 746-726102-16-2023 NotePatient Outreach (KIMBERLY) ALEX ALMONTE ([id number]) 1945 M [facility] Date Time Provider Department 04/02/22 VAN OLIVAREZ During your visit today, we recorded the following information about you: Allergies As of Date: 04/02/2022 Noted Allergy Reaction PYRIDOSTIGMINE BROMIDE 08/04/2021 8 - GI Upset Date Reviewed: 02/26/2022 Reviewed by: Braden Abel MA - Fully Assessed Visit Diagnosis:Screening for genitourinary condition [Z13.89] Order(s):URINALYSIS, REFLEX MICROSCOPIC [[id number]] Order #: [id number] Prescriptions as of 04/06/2022 - tacrolimus IR [...] by mouth daily with lunch. 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 DIABETES UNCOMPL ADULT-UNCONTRLLED [NGQ2660] 02/24/2002 KIDNEY TRANSPLANT STATUS [Z94.0] 09/07/2003 PROPHYLACTIC IMMUNOTHERAPY [Z29.8] 07/30/2006 FIGURE MODEL STEROIDS [[id number]] 07/30/2006 VITAMIN D DEFICIENCY NOS [E55.9] 09/07/2008 [...] diabetes mellitus with diabetic peripher*11/29/2021 Atherosclerosis of [place] artery of extremity w*11/29/2021 Malnutrition of moderate degree (HCC) [E44.0] 12/01/2021 Dermatitis associated with moisture [L30.8] 12/04/2021 Encounter Status:Closed by [facility] on 04/06/22[facility] 03-30-2022 Miscellaneous Notes* Telephone Encounter [...] to pharmacy. Katina Duque documented in this encounterPromedica Defiance [facility]02-07-2023 Progress note Author Sadia Aguilar [facility] March 24, 2022 3:00pm Note Date/Time March 24, 2022 2 :59pm [facility] [address] [place] [address] Wound Center Provider Note Signed Patient: Alex Almonte MR#: [id number] : 1945 Acct:[id number] Age/Sex: 76 / M Copies to: DO Sadia Whyte APRN~ HPI Date of Visit Date of Visit: Date of Service: 03/24/2022 Time of Service: 14:58 Narrative HPI: 12/30/21 Alex is a 76 year old male [facility] an[facility] visit for eval and treatment of a sacral/coccyx area pressure ulcer. He resides at [facility]. There is an CLAMPER present for the visit. Medicalhoney gel will [...] his brief that was cleaned by this designer/writer as well as another nursing staff member, [...] from initial visit here Mode of Arrival/ Pharmaceutical Plant Operator: Facility vehicle Assistive Device Used Today: Wheelchair and Indra Lives with:: Care/Nursing Facility Appetite Description: Within Normal Limits Who helps w/ dressing change?: Nursing Facility Why Do You Need Help?: Can't Reach Ulcer, Limited mobility and Taxing effort to leave home Smoking Status: Former smoker [facility] Medical History (Updated 03/03/22 @ 14:41 by [...] Ulcer/Injury Staging: Unstageable Bed Appearance: Beefy Red, Nooksack and Yellow Percent of Wound Bed Granulated/Red: [...] [address] [facility] Work Phone: 1(248) 326-348101-17-2023 Progress note Author Sadia Aguilar [facility] March 03, 2022 2:41pm Note Date/Time March 03, 2022 2 :41pm [facility] [address] [place] [address] Wound Center Provider Note Signed Patient: Alex Almonte MR#: [id number] : 1945 Acct:[id number] Age/Sex: 76 / M Copies to: Devon Moreira,DO Sadia Aguilar APRN~ HPI Date of Visit Date of Visit: Date of Service: 03/03/2022 Time of Service: 14:38 Narrative HPI: 12/30/21 Alex is a 76 year old male [facility] aninitial visit for eval and treatment of a sacral/coccyx area pressure ulcer. He resides at [facility]. There is an CLAMPER present for the visit. Medicalhoney gel will [...] his brief that was cleaned by this designer/writer as well as another nursing staff member, [...] from initial visit here Mode of Arrival/ Pharmaceutical Plant Operator: Facility vehicle Assistive Device Used Today: Wheelchair and Indra Lives with:: Care/Nursing Facility Appetite Description: Within Normal Limits Who helps w/ dressing change?: Nursing Facility Why Do You Need Help?: Can't Reach Ulcer, Limited mobility and Taxing effort to leave home Smoking Status: Former smoker [facility] Medical History (Updated 03/03/22 @ 14:41 by [...] Ulcer Pressure Ulcer/Injury Staging: Unstageable Bed Appearance: Nooksack and Yellow Percent of Wound Bed Granulated/Red: 90 Percent of Devitalized: 10 Length (cm): 2.2 Width (cm): 1.8 Depth (cm): 1.9 CM Sq: 3.960 Surrounding Tissue Appearance: Nooksack, Hyperpigmented and Satellite lesions Surrounding Tissue Temp: [...] DAVID Aguilar> 03/03/[address] [facility] Work Phone: 1([phone]) 732-873101-13-2023 Miscellaneous Notes* Telephone Encounter - RAUL Davidson - 02/27/2022 10:24 AM EST Patient phones requesting refills as follows: Per pts sister takes 1 mg in AM and 1 mg in PM Requested Prescriptions Pending Prescriptions Disp Refills tacrolimus IR (PROGRAF) 1 mg capsule Sig: Take 2 capsules by mouth DAILY (6 AM). Please review and advise. RAUL Davidson documented in this encounterPromedica Defiance [facility] Hospital01-12-2023 NoteHNO ID: [id number] Author: Hina Peterson MD Service: ? Author Type: Physician Type: Progress Notes Filed: 02/26/2022 4:31 PM Note Text: [facility] [place] DEPARTMENT OF VASCULAR SURGERY OUTPATIENT VISIT DATE [...] postop visit. He has been in senior living since then and has been recovering from his acute on chronic congestive heart failure. His wound has largely been healing without any issues and the maxwell and sutures were removed at the nursing facility. He comes here with a lateral wound eschar. He denies any fevers, chills, or any drainage. He is on anticoagulation. 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 Magic Cup Tensas with lunch aspirin, enteric coated (ASPIRIN, ENTERIC COATED) 81 mg EC tablet Take 1 tablet by mouth once daily. predniSONE (DELTASONE) 5 mg tablet TAKE 1 TABLET BY MOUTH EVERY DAY oxyCODONE IR (ROXICODONE) 5 mg immediate release tablet 1-2 tablets by ORAL/FEEDING TUBE route every 3 hours as needed. Food Supplement, Lactose-Free (ENSURE MAX (more content not included)... [facility]01-12-2023 History of Present illness Narrative* Hina Peterson MD - 02/26/2022 4:25 PM EST Images from the original note were not included. [facility] DEPARTMENT OF VASCULAR SURGERY OUTPATIENT VISIT DATE [...] postop visit. He has been in senior living since then and has been recovering from his acute on chronic congestive heart failure. His wound has largely been healing without any issues and the maxwell and sutures were removed at the [facility] facility. He comes here with a lateral wound eschar. He denies any fevers, chills, or any drainage. He is on anticoagulation. 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 Magic Cup Tensas with lunch aspirin, enteric coated (ASPIRIN, ENTERIC [...] 2022 TIME: 4:26 PM documented in this encounterPromedica Defiance [facility] Hospital01-05-2023 Miscellaneous Notes* Telephone Encounter - Gwen [...] Home and cell number(Ask for Alex's nurse) [phone] Diagnosis 4 mo f/u wound check Yumiko Mcclain documented in this encounterPromedica Defiance Regional Hospital01-05-2023 Miscellaneous Notes* Telephone Encounter - Augusta [...] level. Augusta Medrano RN documented in this encounterPromedica Defiance [facility] Hospital01-04-2023 Miscellaneous Notes* Telephone Encounter - Martina [...] advise. Mercedez Tavares MA documented in this encounterPromedica Defiance Regional Hospital12-27-2022 Progress note Author Sadia Aguilar [facility] February 10, 2022 3:47pm Note Date/Time February 10, 2022 3:47pm [facility] [address] [place] [address] Wound Center Provider Note Signed Patient: Alex Almonte MR#: [id number] : 1945 Acct:[id number] Age/Sex: 76 / M Copies to: DO Sadia Whyte APRN~ HPI Date of Visit Date of Visit: Date of Service: 02/10/2022 Time of Service: 15:44 Narrative HPI: 12/30/21 Alex is a 76 year old [facility] an[facility] visit for eval and treatment of a sacral/coccyx area pressure ulcer. He resides at [facility]. There is an CLAMPER present for the visit. Medicalhoney gel will [...] his brief that was cleaned by this designer/writer as well as another nursing staff member, few weeks to follow up Subjective Pain Coccyx: Pain Description: Intermittent Pain Intensity: 0 Wound/Ulcer History When did wound start?: 4 weeks ago- from initial visit here Mode of Arrival/ Pharmaceutical Plant Operator: Facility vehicle Assistive Device Used Today: Wheelchair and Indra Lives with:: Care/Nursing Facility Appetite Description: Within Normal Limits Who helps w/ dressing change?: Nursing Facility Why Do You Need Help?: Can't Reach Ulcer, Limited mobility and Taxing effort to leave home Smoking Status: Former smoker [facility] Medical History (Updated 01/20/22 @ 14:21 by [...] Ulcer Pressure Ulcer/Injury Staging: Unstageable Bed Appearance: Nooksack and Yellow Percent of Wound Bed Granulated/Red: 90 Percent of Devitalized: 10 Length (cm): 2.5 Width (cm): 2.3 Depth (cm): 2.1 CM Sq: 5.750 Surrounding Tissue Appearance: Nooksack, Hyperpigmented and Satellite lesions Surrounding Tissue Temp: [...] <Electronically signed by DAVID Aguilar> 02/10/22 1547 [facility] Work Phone: 1(643) 938-236012-22-2022 NoteHNO ID: [id number] Author: Asia Pike MD Service: ? Author Type: Physician Type: Progress Notes Filed: 02/05/2022 9:38 AM Note Text: [facility] Trans[facility] Follow up Portions of this note [...] date with medications. Patient brought paperwork from [employer] with all medications being received. Patient unsure if they have been drawing labs regularly. Last Tac from 01/19: 12.9 and K 5.9. In need of current labs. Lab orders will be sent with patient and follows as below: Kidney and Pancreas Transplant Standing Lab Orders [id number] [place], [place] [address] February 05, 2022 Alex Almonte 1945 [id number] STANDARD TESTING: Diagnosis Codes: Z94.0 Kidney Transplant [...] AT YOUR LABORATORY FACILITY AND FAX TO [phone]. PLEASE CALL [phone]. Provider: Dr. Pike Current Outpatient Medications Medication [...] by mouth daily with lunch. Magic Cup Tensas with lunch aspirin, enteric coated (ASPIRIN, ENTERIC COATED) 81 mg EC tablet Take 1 tablet by mouth once daily. atorvastatin (LIPITOR) 40 mg tablet 1 tablet by ORAL/FEEDING TUBE route daily at bedtime. (more content not included)...[facility]12-22-2022 History of Present illness Narrative* Asia Pike MD - 02/05/2022 8:20 AM EST Images from the original note were not included. Formerly [facility] Follow up Portions of this note [...] Indra scale at [facility]: 166.2 lbs per patient. Bed sore on coccyx causing discomfort. Being changed regularly at [facility]- reported to be smaller around but still as deep. Patient not very up to date with medications. Patient brought paperwork from [facility] [facility] with all medications being received. Patient unsure if they have been drawing labs regularly. Last Tac from 01/19: 12.9 and K 5.9. In need of current labs. Lab orders will be sent with patient and follows as below: Kidney and Pancreas Transplant Standing Lab Orders [id number] [place], [place] [address] February 05, 2022 Alex Almonte 1945 [id number] STANDARD TESTING: Diagnosis Codes: Z94.0 Kidney Transplant [...] AT YOUR LABORATORY FACILITY AND FAX TO [phone]. PLEASE CALL [phone]. Provider: Dr. Pike Current Outpatient Medications Medication [...] by mouth daily with lunch. Magic Cup Tensas with lunch aspirin, enteric coated (ASPIRIN, ENTERIC [...] complexity. Asia Pike MD documented in this encounterPromedica Defiance Regional Hospital12-06-2022 Progress note Author Sadia Aguilar [facility] January 20, 2022 2:21pm Note Date/Time January 20, 2022 2 :21pm [facility] [address] [place] [address] Wound Center Provider Note Signed Patient: Alex Almonte MR#: [id number] : 1945 Acct:[id number] Age/Sex: 76 / M Copies to: DO Sadia Whyte APRN~ HPI Date of Visit Date of Visit: Date of Service: 01/20/2022 Time of Service: 14:17 Narrative HPI: 12/30/21 Alex is a 76 [facility] visit for eval and treatment of a sacral/coccyx area pressure ulcer. He resides at [facility]. There is an CLAMPER present for the visit. Medicalhoney gel will [...] from initial visit here Mode of Arrival/ Pharmaceutical Plant Operator: Facility vehicle Assistive Device Used Today: Wheelchair and Indra Lives with:: Care/Nursing Facility Appetite Description: Within Normal Limits Who helps w/ dressing change?: Nursing Facility Why Do You Need Help?: Can't Reach Ulcer, Limited mobility and Taxing effort to leave home Smoking Status: Former smoker [facility] Medical History (Updated 01/20/22 @ 14:21 by [...] Ulcer Pressure Ulcer/Injury Staging: Unstageable Bed Appearance: Nooksack and Yellow Percent of Wound Bed Granulated/Red: 40 Percent of Devitalized: 60 Length (cm): 5.2 Width (cm): 3.4 Depth (cm): 1.8 CM Sq: 17.680 Surrounding Tissue Appearance: N[place]sack and Hyperpigmented Surrounding Tissue Temp: Warm Drainage [...] <Electronically signed by DAVID Aguilar> 01/20/22 1421 [facility] Work Phone: 1(158) 533-412112-06-2022 Miscellaneous Notes* Telephone Encounter - Van Olivarez APRN.DECORATOR LIGHTING FIXTURES - 01/20/2022 1:12 PM EST Labs noted from yesterday. Pt is currently residing at [facility], I spoke with the Nurse, the results has been addressed by Physician caring for pt. He had been placed on Chlor Con and this has been discontinued and hyperkalemia has been treated. Van Olivarez APRN.DIAMANTE documented in this encounterPromedica Defiance Regional Hospital11-28-2022 Surgical operation note* Brief Op Note - Misbah Landis PA-C - 01/12/2022 10:41 AM EST BRIEF OPERATIVE / PROCEDURE NOTE LOG ID: [id number] SURGERY/PROCEDURE DATE: 01/12/2022 INCISION/PROCEDURE START TIME: 10:32 AM INCISION CLOSE/PROCEDURE END TIME: 10:35 AM SURGEON(S)/PROCEDURALIST(S) AND PRINT LINE TAILER(S): Misbah Landis PA-C SURGERY/PROCEDURE(S): Removal tunneled vascular access catheter under local anesthesia ANESTHESIA: Procedural Sedation FINDINGS: Catheter removed intact ESTIMATED BLOOD LOSS: 0 ml SPECIMENS: None COMPLICATIONS: None PRE-OP/PRE-PROCEDURE DIAGNOSIS: Foot Ulcer POST-OP/POST-PROCEDURE DIAGNOSIS: Same as Preop SIGNATURE: Misbah Landis PA-C PATIENT NAME: Alex Almonte DATE: January 12, 2022 TIME: 10:42 AM documented in this encounterPromedica Defiance Regional Hospital11-22-2022 Nurse Note* Laxmi Archibald RN - 01/06/2022 1:55 PM EST Pre-procedure instructions: Contacted patient's sister, Munira Brothers and nurse at [facility], Jada ([phone]) andconfirmed appt. for Gerhard removal scheduled on [...] signed. Arrival at 9:30am to desk [facility] and check in for your procedure. Center Machine Operator/Transportation: How will you be arriving for your procedure? Ambulance service. To be arranged by [facility]. If you develop any of the following symptoms before your procedure, please call [phone]. Chills, joint pain, rash, sore throat, cough, loss of smell, reddened eyes, vomiting, abdominal pains, diarrhea, loss of taste, severe headache, weakness, bruising or bleeding, fever, muscle pain, shortness of breath Recovery expectations: You can expect to be in recovery for 30 minutes following the procedure. Written instructions provided to patient via [employer] If you have any questions please call [phone] documented in this encounterPromedica Defiance Regional Hospital11-15-2022 Progress note Author Sadia Aguilar [facility] December 30, 2021 1:49pm Note Date/Time December 30, 2021 1:49pm [facility] [address] [place] [address] Wound Center Provider Note Signed Patient: Alex Almonte MR#: [id number] : 1945 Acct:[id number] Age/Sex: 76 / M Copies to: DO Sadia Whyte APRN~ HPI Date of Visit Date of Visit: Date of Service: 12/30/2021 Time of Service: 13:44 Narrative HPI: 12/30/21 Alex is a 76 year old [facility] an[facility] visit for eval and treatment of a sacral/coccyx area pressure ulcer. He resides at [facility]. There is an CLAMPER present for the visit. Medicalhoney gel will [...] start?: 4 weeks ago Mode of Arrival/ Pharmaceutical Plant Operator: Facility vehicle Assistive Device Used Today: Wheelchair and Indra Lives with:: Care/Nursing Facility Appetite Description: Within Normal Limits Who helps w/ dressing change?: Nursing Facility Why Do You Need Help?: Can't Reach Ulcer, Limited mobility and Taxing effort to leave home Smoking Status: Former smoker [facility] Medical History (Updated 12/30/21 @ 13:49 by [...] 0.1 CM Sq: 38.500 Surrounding Tissue Appearance: Nooksack and Hyperpigmented Surrounding Tissue Temp: Warm Drainage [...] DAVID Aguilar> 12/30/[address] [facility] Work Phone: 1(424) 235-135411-15-2022 History of Present illness Narrative* Paresh Fonseca [...] is currently at [facility] in [facility] Seen on video together with [...] following this at [facility] WBC 6.0, creatinine -- 0.8. [...] by mouth daily with lunch. Magic Cup Tensas with lunch aspirin, enteric coated (ASPIRIN, ENTERIC [...] is a 76 year old male from [facility]. 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 History of PAD CAD status post CABG, diabetes, atrial fibrillatioN He originally presented [facility] for having altered mental status and right [...] 3. Status post right heel I&D at [facility] on 11/24/2021. MRSA, Enterobacter cloacae and [...] will need to coordinate with his SNF [phone] --our ID office will need to arrange for IR gerhard removal. Return to ID as needed 10 Minutes spent via virtual visit. SIGNATURE: Paresh Fonseca MD PATIENT NAME: Alex Almonte DATE: December 30, 2021 TIME: 9:52 AM documented in this encounterPromedica Defiance Regional Hospital11-01-2022 Miscellaneous Notes* Telephone Encounter - Sulma Pardo - 12/16/2021 3:13 PM EDT Pt therapy coordinator is requesting orders for Stomp ampushield to be taken off pressure relief because it is causing sores on the thigh. Thanks, Sulma Pardo Grade Foreman documented in this encounterPromedica Defiance Regional Hospital10-31-2022 Miscellaneous Notes* Telephone Encounter - Gwen Alfredo Adm Asst I - 12/15/2021 4:11 PM EDT Rupa LYLES from [facility] [phone] called to report IV Vancomycin was started until today. Patient missed 3 days, should patient makeup missed doses? Please advise. Gwen Alfredo Adm Asst I documented in this encounterPromedica Defiance Regional Hospital10-21-2022 Instructions* Patient Instructions* Paresh Fonseca MD [...] serious illness Are taking any medications (prescription, ouli-kdd-nbamhxf, vitamins, or herbal products) How will I receive EVUSHELD? EVUSHELD consists of two investigational medicines, tixagevimab and cilgavimab. You will receive 1 dose of EVUSHELD, consisting of 2 separate injections (tixagevimab and cilgavimab). EVUSHELD will be given to you by your healthcare provider as 2 intramuscular injections, given one after the other. Viruses can chart changer time (mutate) and develop into a [...] caused by certain SARS-CoV-2 variants: Viruses can chart changer time (mutate) and develop into a [...] treatment or prevention of COVID-19 go to https://www.fda.gov/oyenooytx-bontecsyemmj-yoc- response/otz-elzmg-qsxsicfxgj-qzi-jbpcih-klvpokoil/gzixocemy-rhf-jclderljepcsx for more information. It is your choice [...] not go away. Report side effects to [employer] at www.fda.gov/medJobs2Webtch or call 8-743-OAH-5373 or call [employer] . Additional Information If you have questions, visit the website or call the telephone number provided below. Website Telephone number http://[email or web address] How can I learn more about COVID-19? Ask your healthcare provider. Visit https://www.cdc.gov/COVID19 Contact your local or state public health department. What is an Emergency Use Authorization? The [place] FDA has made EVUSHELD (tixagevimab co-packaged with cilgavimab) available under an emergency access mechanism called an Emergency Use Authorization EUA. The EUA is supported by a Journeyman Electrician of Health and Human Service (HHS) declaration [...] monohydrate, polysorbate 80, sucrose, water. Distributed by: [employer], [place] Manufactured for: [employer], [place] [employer] 2021. All rightsreserved. documented in this encounterPromedica Defiance Regional Hospital10-21-2022 Miscellaneous Notes* Telephone Encounter - Paresh Fonseca MD - 12/05/2021 3:05 PM EDT Evusheld (tixagevimab/cilgavimab) Eligibility and Patient Discussion The patient agrees to receive Evusheld (tixagevimab 300 mg and cilgavimab 300 mg) at [place]. The patient verbalized understanding of repeating a [...] hospital Paresh Fonseca MD documented in this encounterPromedica Defiance Regional Hospital10-03-2022 Instructions* Patient Instructions* No Reeder DO - 11/17/2021 4:26 PM EDT -- continue coumadin -- will get vascular ultrasound for vein and artery of your right leg -- will have you see my interventional cardiology partner regarding your peripheral artery disease and if your artery disease is impairing your wound healing for the leg ulcer documented in this encounterPromedica Defiance Regional Hospital10-03-2022 History of Present illness Narrative* No Reeder DO - 11/17/2021 3:53 PM EDT Images from the original note were not included. [facility] Department of Cardiovascular Medicine SECTION [...] DVT scan. Leg elevation. No Reeder DO, [facility] Vascular Medicine documented in this encounterPromedica Defiance Regional Hospital08-16-2022 History of Past illness Narrative* Problem Noted Date Resolved Date Altered tissue perfusion documented as of this encounter (statuses as of 09/30/2021) [address]16-2022 History of Past illness Narrative* Problem Noted Date Resolved Date Altered tissue perfusion documented as of this encounter (statuses as of 10/09/2021) [address]16-2022 History of Past illness Narrative* Problem Noted Date Resolved Date Altered tissue perfusion documented as of this encounter (statuses as of 11/18/2021) [address]16-2022 History of Past illness Narrative* Problem Noted Date Resolved Date Altered tissue perfusion documented as of this encounter (statuses as of 12/01/2021) [address]16-2022 History of Past illness Narrative* Problem Noted Date Resolved Date Altered tissue perfusion 16/2 022 documented as of this encounter (statuses as of 12/05/2021) [address]16-2022 History of Past illness Narrative* Problem Noted Date Resolved Date Altered tissue perfusion 16/2 022 documented as of this encounter (statuses as of 12/08/2021) [address]16-2022 History of Past illness Narrative* Problem Noted Date Resolved Date Altered tissue perfusion 16/2 022 documented as of this encounter (statuses as of 12/08/2021) [address]16-2022 History of Past illness Narrative* Problem Noted Date Resolved Date Altered tissue perfusion 16/2 022 documented as of this encounter (statuses as of 12/12/2021) [address]16-2022 History of Past illness Narrative* Problem Noted Date Resolved Date Altered tissue perfusion 16/2 022 documented as of this encounter (statuses as of 12/15/2021) [address]16-2022 History of Past illness Narrative* Problem Noted Date Resolved Date Altered tissue perfusion 16/2 022 documented as of this encounter (statuses as of 12/16/2021) [address]16-2022 History of Past illness Narrative* Problem Noted Date Resolved Date Altered tissue perfusion 16/2 022 documented as of this encounter (statuses as of 12/31/2021) [address]16-2022 History of Past illness Narrative* Problem Noted Date Resolved Date Altered tissue perfusion 16/2 022 documented as of this encounter (statuses as of 01/13/2022) [address]16-2022 History of Past illness Narrative* Problem Noted Date Resolved Date Altered tissue perfusion 16/2 022 documented as of this encounter (statuses as of 01/20/2022) [address]16-2022 History of Past illness Narrative* Problem Noted Date Resolved Date Altered tissue perfusion 16/2 022 documented as of this encounter (statuses as of 02/06/2022) [address]16-2022 History of Past illness Narrative* Problem Noted Date Resolved Date Altered tissue perfusion 16/2 022 documented as of this encounter (statuses as of 02/20/2022) [address]16-2022 History of Past illness Narrative* Problem Noted Date Resolved Date Altered tissue perfusion 022 documented as of this encounter (statuses as of 02/26/2022) [address]2022 History of Past illness Narrative* Problem Noted Date Resolved Date Altered tissue perfusion 022 documented as of this encounter (statuses as of 02/27/2022) [address]2022 History of Past illness Narrative* Problem Noted Date Resolved Date Altered tissue perfusion 022 documented as of this encounter (statuses as of 03/21/2022) [address]2022 History of Past illness Narrative* Problem Noted Date Resolved Date Altered tissue perfusion 022 documented as of this encounter (statuses as of 03/30/2022) [address]2022 History of Past illness Narrative* Problem Noted Date Resolved Date Altered tissue perfusion 022 documented as of this encounter (statuses as of 04/06/2022) [address]16-2022 History of Past illness Narrative* Problem Noted Date Resolved Date Altered tissue perfusion 022 documented as of this encounter (statuses as of 05/13/2022) [address]16-2022 History of Past illness Narrative* Problem Noted Date Diagnosed Date Resolved Date Altered tissue perfusion documented as of this encounter (statuses as of 2022) [address]2022 History of Past illness Narrative* Problem Noted Date Diagnosed Date Resolved Date Altered tissue perfusion documented as of this encounter (statuses as of 10/29/2022) [address]16-2022 Miscellaneous Notes* Telephone Encounter - Katina [...] to pharmacy. Katina Duque documented in this encounterPromedica Defiance Regional Hospital05-31-2022 Miscellaneous Notes* Telephone Encounter - Van Olivarez APRN.CNP - 07/15/2021 9:50 AM EDT The following approved medication requests have been transmitted electronically. Signed Prescriptions Disp Refills predniSONE (DELTASONE) 5 mg tablet 90 tablet 3 Sig: TAKE 1 TABLET BY MOUTH EVERY DAY RILEY: No Authorizing Provider: VAN OLIVAREZ APRN.CNP * Telephone Encounter - Rosibel Fariba Daniel - 07/15/2021 9:32 AM EDT Patient phones requesting refills as follows: Pending Prescriptions Disp Refills PREDNISONE 5 MG TABLET 90 tablet 3 Sig: TAKE 1 TABLET BY MOUTH EVERY DAY RILEY: Yes Please review and advise. Rosibel Daniel documented in this encounterPromedica Defiance Regional Hospital04-21-2022 Miscellaneous Notes* Telephone Encounter - Van Olivarez APRN.CNP - 06/05/2021 4:46 PM EDT Spoke with pt regarding latest results, scr. at baseline. TAC level 8.6 prev two levels in 5 range.He believes latest level would be 12hr trough. No changes for now, if next level >7, can consider if reduction appropriate. He understands. Van Olivarez APRN.CNP documented in this encounterPromedica Defiance Regional HospitalEvalusaint francis healthcare note* Diagnosis Screening for genitourinary condition Screening for other and unspecified genitourinary condition documented in this encounter [facility] HospitalEvalusaint [facility]* Diagnosis Acute deep vein thrombosis (DVT) of proximal end of right lower extremity (HCC)- Primary PAD (peripheral artery disease) (HCC) Peripheral vascular disease, unspecified Nonhealing ulcer of heel (HCC) Anticoagulation management encounter Encounter for therapeutic drug monitoring documented in this encounter [facility] note* Diagnosis Encounter for prophylactic measures, unspecified- Primary documented in this encounter [facility] note* Diagnosis Kidney replaced by transplant- Primary documented in this encounter [facility] note* Diagnosis MRSA bacteremia- Primary Bacteremia Diabetic foot ulcer with osteomyelitis (HCC) Type II or unspecified type diabetes mellitus with other specified manifestations, not stated as uncontrolled ILIANA (acute kidney injury) ([facility]) Acute kidney failure, unspecified documented in this encounter [facility] note* Diagnosis Kidney replaced by transplant- Primary 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 [facility] current use of immunosuppressive drug documented in this encounter [facility] note* Diagnosis Hx of BKA, right (HCC)- Primary PAD (peripheral artery disease) ([facility]) Peripheral vascular disease, unspecified Mixed hyperlipidemia due [...] gangrene, with long-term current use of insulin ([facility]) Paroxysmal atrial fibrillation ([facility]) Atrial fibrillation documented in this encounter [facility] note* Diagnosis Screening for genitourinary condition Screening for other and unspecified genitourinary condition documented in this encounter [facility] note* Diagnosis Onset Date Resolution Status At high risk for skin breakdown chronic Diabetes chronic Fecal incontinence chronic Limited mobility chronic Poor appetite chronic Pressure ulcer of sacral region, unstageable chronic Candidiasis resolved [facility] Work Phone: Evaluation noteNo [employer] Other Evaluation note* Diagnosis Kidney replaced by transplant- Primary documented in this encounter [facility] note* Diagnosis Type 1 diabetes mellitus [...] COLONOSCOPY 1995,2001, 2014 Hospitalization History see above [email or web address] Other Progress note Author Sadia Aguilar [facility] July 20, 2022 1:48pm Note Date/Time July 20, 2022 1:48p m [facility] [address] [place] [address] Wound Center Provider Note Signed Patient: Alex Almonte MR#: [id number] : 1945 Acct:[id number] Age/Sex: 76 / M Copies to: Devon Moreira,DO Sadia Aguilar, WASHCLOTH FOLDER~ HPI Date of Visit Date of Visit: Date of Service: 07/20/2022 Time of Service: 13:46 Narrative HPI: 12/30/21 Alex is a 76 year old [facility] an[facility] visit for eval and treatment of a sacral/coccyx area pressure ulcer. He resides at [facility]. There is an CLAMPER present for the visit. Medicalhoney gel will [...] his brief that was cleaned by this designer/writer as well as another nursing staff member, [...] from initial visit here Mode of Arrival/ Pharmaceutical Plant Operator: Facility vehicle Assistive Device Used Today: Wheelchair and Indra Lives with:: Care/Nursing Facility Appetite Description: Within Normal Limits Who helps w/ dressing change?: Nursing Facility Why Do You Need Help?: Can't Reach Ulcer, Limited mobility and Taxing effort to leave home Smoking Status: Former smoker [facility] Medical History (Updated 03/03/22 @ 14:41 by [...] DAVID Aguilar> 07/20/[address] [facility] Work Phone: Reason for referral (narrative)* Outpatient Procedure (Routine) - Authorized Specialty Diagnoses / Procedures Referred By Felicia t [facility] Diagnoses PAD (peripheral artery disease) (HCC) Nonhealing ulcer of heel (HCC) Procedures US LEG ARTERIAL PERIPH UNL VAS LAB DUP-SCAN LXTR ART/ARTL BPGS UNI/LMTD STUDY No Reeder DO [address] [place] [id number] [facility] [address] [address] Referral ID Status Reason Start Date Expiration Date Visits Requested Visits Authorized [id number] Authorized Auto-Generat ed Referral 11/17/2021 11/17/2022 1 1 * Outpatient Procedure (Routine) - Authorized Specialty Diagnoses / Procedures Referred By Contac t Referred To Contact [facility] Diagnoses Acute deep vein thrombosis (DVT) of proximal end of right lower extremity (HCC) Procedures US LEG VEIN DVT UNL VAS LAB DUP-SCAN XTR VEINS UNILATERAL/LIMITED STUDY No Reeder DO [address] [place] [address] [facility] [place] [address] Referral ID Status Reason Start Date Expiration Date Visits Requested Visits Authorized [id number] Authorized Auto-Generat ed Referral 11/17/2021 11/17/2022 1 1 * Consult, Test, Treat (Routine) - Authorized Specialty Diagnoses / Procedures Referred By Contac t Referred To Contact Cardiology Diagnoses PAD (peripheral artery disease) (HCC) Nonhealing ulcer of heel (HCC) Procedures CONSULT TO CARDIOLOGY OFFICE/OUTPATIENT [facility] MDM 60-74 MINUTES Savanah Marcelo MD [address] [place] [address] Referral ID Status Reason Start Date Expiration Date Visits Requested Visits Authorized [id number] Authorized PCP Requested Referral 11/17/2021 11/17/2022 1 1 [facility] Summary Purpose Family History No Family History Records Found Relationship Condition Age at Onset Recorded Date/T kartik father Aneurysm Unknown father Parkinson's disease Unknown Advance Directives No Advanced Directives Records FoundDocuments on File Type Date Recorded Patient Color Paste Mixer Expl anation Advance Directive(s) Latest Code Status [...] Maker Relationship: M ajority of Adult Siblings ([employer] products sales representative) DNR-CCA 09/26/2021 11:56 AM 10/01/2021 [...] Decision Maker Relationship: Majority of Adult Siblings ([employer] products sales representative) Code Status History Code Status [...] Reason for Visit Chief Complaint Open Wound ([facility]) Reason for Visit At high risk [...] and content) DATE CREATED AUTHOR 02/20/2021 [employer] DATE CREATED AUTHOR AUTHOR'S ORGANIZ ATION 07/25/2022 [facility] DATE CREATED AUTHOR AUTHOR'S ORGANIZ ATION 08/16/2022 [facility] DATE CREATED AUTHOR AUTHOR'S ORGANIZ ATION 01/14/2023 [facility] DATE CREATED AUTHOR AUTHOR'S ORGANIZ ATION 06/19/2023 [facility] DATE CREATED AUTHOR AUTHOR'S ORGANIZ ATION 09/05/2023 [facility] Source Comments (unrecognize d section and content) In the event this informatio n is protected by the Federal Confidentiality of Alcohol and Drug Abuse Patient Records regulations: The Federal rules restrict any use of the information to criminally investigate or prosecute any alcohol or drug abuse patient.[facility] the event this information is protected by the Federal Confidentiality of Alcohol and Drug Abuse Patient Records regulations: The Federal rules restrict any use of the information to criminally investigate or prosecute any alcohol or drug abuse patient.[facility] the event this information is protected by the Federal Confidentiality of Alcohol and Drug Abuse Patient Records regulations: The Federal rules restrict any use of the information to criminally investigate or prosecute any alcohol or drug abuse patient.[facility] the event this information is protected by the Federal Confidentiality of Alcohol and Drug Abuse Patient Records regulations: The Federal rules restrict any use of the information to criminally investigate or prosecute any alcohol or drug abuse patient.[facility] the event this information is protected by the Federal Confidentiality of Alcohol and Drug Abuse Patient Records regulations: The Federal rules restrict any use of the information to criminally investigate or prosecute any alcohol or drug abuse patient.[facility] the event this information is protected by the Federal Confidentiality of Alcohol and Drug Abuse Patient Records regulations: The Federal rules restrict any use of the information to criminally investigate or prosecute any alcohol or drug abuse patient.[facility] the event this information is protected by the Federal Confidentiality of Alcohol and Drug Abuse Patient Records regulations: The Federal rules restrict any use of the information to criminally investigate or prosecute any alcohol or drug abuse patient.[facility] the event this information is protected by the Federal Confidentiality of Alcohol and Drug Abuse Patient Records regulations: The Federal rules restrict any use of the information to criminally investigate or prosecute any alcohol or drug abuse patient.[facility] the event this information is protected by the Federal Confidentiality of Alcohol and Drug Abuse Patient Records regulations: The Federal rules restrict any use of the information to criminally investigate or prosecute any alcohol or drug abuse patient.[facility] the event this information is protected by the Federal Confidentiality of Alcohol and Drug Abuse Patient Records regulations: The Federal rules restrict any use of the information to criminally investigate or prosecute any alcohol or drug abuse patient.[facility] the event this information is protected by the Federal Confidentiality of Alcohol and Drug Abuse Patient Records regulations: The Federal rules restrict any use of the information to criminally investigate or prosecute any alcohol or drug abuse patient.[facility] the event this information is protected by the Federal Confidentiality of Alcohol and Drug Abuse Patient Records regulations: The Federal rules restrict any use of the information to criminally investigate or prosecute any alcohol or drug abuse patient.[facility] the event this information is protected by the Federal Confidentiality of Alcohol and Drug Abuse Patient Records regulations: The Federal rules restrict any use of the information to criminally investigate or prosecute any alcohol or drug abuse patient.[facility] the event this information is protected by the Federal Confidentiality of Alcohol and Drug Abuse Patient Records regulations: The Federal rules restrict any use of the information to criminally investigate or prosecute any alcohol or drug abuse patient.[facility] HospitalIn the event this information is protected by the Federal Confidentiality of Alcohol and Drug Abuse Patient Records regulations: The Federal rules restrict any use of the information to criminally investigate or prosecute any alcohol or drug abuse patient.[facility] HospitalIn the event this information is protected by the Federal Confidentiality of Alcohol and Drug Abuse Patient Records regulations: The Federal rules restrict any use of the information to criminally investigate or prosecute any alcohol or drug abuse patient.[facility] HospitalIn the event this information is protected by the Federal Confidentiality of Alcohol and Drug Abuse Patient Records regulations: The Federal rules restrict any use of the information to criminally investigate or prosecute any alcohol or drug abuse patient.[facility] HospitalIn the event this information is protected by the Federal Confidentiality of Alcohol and Drug Abuse Patient Records regulations: The Federal rules restrict any use of the information to criminally investigate or prosecute any alcohol or drug abuse patient.[facility] HospitalIn the event this information is protected by the Federal Confidentiality of Alcohol and Drug Abuse Patient Records regulations: The Federal rules restrict any use of the information to criminally investigate or prosecute any alcohol or drug abuse patient.[facility] HospitalIn the event this information is protected by the Federal Confidentiality of Alcohol and Drug Abuse Patient Records regulations: The Federal rules restrict any use of the information to criminally investigate or prosecute any alcohol or drug abuse patient.[facility] HospitalIn the event this information is protected by the Federal Confidentiality of Alcohol and Drug Abuse Patient Records regulations: The Federal rules restrict any use of the information to criminally investigate or prosecute any alcohol or drug abuse patient.[facility] HospitalIn the event this information is protected by the Federal Confidentiality of Alcohol and Drug Abuse Patient Records regulations: The Federal rules restrict any use of the information to criminally investigate or prosecute any alcohol or drug abuse patient.[facility] HospitalIn the event this information is protected by the Federal Confidentiality of Alcohol and Drug Abuse Patient Records regulations: The Federal rules restrict any use of the information to criminally investigate or prosecute any alcohol or drug abuse patient.[facility] HospitalIn the event this information is protected by the Federal Confidentiality of Alcohol and Drug Abuse Patient Records regulations: The Federal rules restrict any use of the information to criminally investigate or prosecute any alcohol or drug abuse patient.[facility] HospitalIn the event this information is protected by the Federal Confidentiality of Alcohol and Drug Abuse Patient Records regulations: The Federal rules restrict any use of the information to criminally investigate or prosecute any alcohol or drug abuse patient.[facility] HospitalIn the event this information is protected by the Federal Confidentiality of Alcohol and Drug Abuse Patient Records regulations: The Federal rules restrict any use of the information to criminally investigate or prosecute any alcohol or drug abuse patient.[facility] Reason for Visit (unrecogniz ed section [...] Care Teams (unrecognized sec tion and content) Shift Engineer Relationship Specialty Start Date End Date Devon Moreira, DO [address] [place] [address] PCP - General 05/27/00 Shift Engineer Relationship Specialty Start Date End Date Devon Moreira, DO [address] [place] [address] PCP - General 05/27/00 Shift Engineer Relationship Specialty Start Date End Date Devon Moreira, DO [address] [place] [address] PCP - General 05/27/00 Shift Engineer Relationship Specialty Start Date End Date Devon Moreira Raquel, DO [address] [place] [address] PCP - General 05/27/00 Shift Engineer Relationship Specialty Start Date End Date Devon Moreira, DO [address] [place] [address] PCP - General 05/27/00 Shift Engineer Relationship Specialty Start Date End Date Devon Moreira, DO [address] [place] [address] PCP - General 05/27/00 Shift Engineer Relationship Specialty Start Date End Date Devon Moreira, DO [address] [place] [address] PCP - General 05/27/00 Shift Engineer Relationship Specialty Start Date End Date Devon Moreira, DO [address] [place] [address] PCP - General 05/27/00 Shift Engineer Relationship Specialty Start Date End Date Devon Moreira, DO [address] [place] [address] PCP - General 05/27/00 Shift Engineer Relationship Specialty Start Date End Date Devon Moreira, DO [address] [place] [address] PCP - General 05/27/00 Shift Engineer Relationship Specialty Start Date End Date Devon Moreira, DO [address] [place] [address] PCP - General 05/27/00 Shift Engineer Relationship Specialty Start Date End Date eDvon Moreira, DO [address] [place] [address] PCP - General 05/27/00 Shift Engineer Relationship Specialty Start Date End Date Devon Moreira, DO [address] [place] [address] PCP - General 05/27/00 Shift Engineer Relationship Specialty Start Date End Date Devon Moreira, DO [address] [facility] [place] [address] PCP - General 05/27/00 Shift Engineer Relationship Specialty Start Date End Date Devon Moreira, DO [address] [facility] [place] [address] PCP - General 05/27/00 Shift Engineer Relationship Specialty Start Date End Date Devon Moreira, DO [address] [facility] [place] [address] PCP - General 05/27/00 Shift Engineer Relationship Specialty Start Date End Date Devon Moreira, DO [address] [facility] [place] [address] PCP - General 05/27/00 Shift Engineer Relationship Specialty Start Date End Date Devon Moreira, DO [address] [facility] [place] [address] PCP - General 05/27/00 Shift Engineer Relationship Specialty Start Date End Date Devon Moreira, DO [address] [facility] [place] [address] PCP - General 05/27/00 Team Status: Active Member Role Status Dates Devon Moreira DO Primary Care Provider Active Team Status: Inactive Member Role Status Dates Devon Moreira DO Primary Care Provider Active Sadia Aguilar APRN Attending Provider Active Shift Engineer Relationship Specialty Start Date End Date Devon Moreira, DO [address] [facility] [place] [address] PCP - General 05/27/00 Shift Engineer Relationship Specialty Start Date End Date Devon Moreira, DO [address] [facility] [place] [address] PCP - General 05/27/00 Shift Engineer Relationship Specialty Start Date End Date Ni Cabrera DO [address] [facility] [address] [place] [address] PCP - ACO Reach 07/09/22 Devon Moreira MD [address] [facility] [id number] PCP - General Internal Medicine 07/14/22 PRN Active and Recently Administ ered Medications (unrecognized section and content) Medication Order 01/10/2022 01/11/2022 01/12/2022 lidocaine (PF) 10 mg/mL (1 %) injection (XYLOCAINE) SUBCUTANEOUS, X (OR/PROCEDURE) PRN, Starting on Wed01/12/22 at 1032, Until Wed01/13/22 at 0303, Intraprocedure 1032 (Given - Provid er: Vani Hdz APRN.DECORATOR LIGHTING FIXTURES) Goals (unrecognized section and content) Goals may [...] BE BASED ON THE PRIMARY CLINICAL RECORDS. [employer] provides no warranty or guarantee of the accuracy or completeness of information in this document.
[2023-09-10 08:54] LABS: Phosphorus 3.5 mg/dL (2.6-4.7)
== END 2023-09-10 03:06 | disposition home or self-care (01) ==
LOC: LAB 03:05
PROVIDERS: PCP Internal Medicine; Visit Provider Internal Medicine
DX: Z51.81 Encounter for therapeutic drug level monitoring (principal)
CPT/HCPCS: 36415; 84100

== ENCOUNTER 2023-09-13 07:33 | Outpatient (REF) | payer MEDICARE, OTHER, SELFPAY ==
--- OUTSIDE RECORDS SUMMARY | 2023-09-13 07:42 | XMS_ITS | CCD ---
Author Organization [facility] Care Team Providers Care Alteration Hand Name Role Phone PROVIDER, UNKNOWN Attending Unavailable [...] Unavailable Rico, DO Osorio Primary Care Provider [phone] DAVID Aguilar Attending Provider Sadia Aguilar Attending Unavailable Sadia Aguilar Admitting Unavailable Devon Moreira Primary Care Unavailable DEVON MOREIRA Referring Unavailable HINA PETERSON Attending Unavailable DEVON MOREIRA Primary Care Unavailable ARTUR CHEN Referring Unavailable DEVON MOREIRA Primary Care Unavailable PetNi moreno DO Unavailable [phone] Devon Moreira MD Primary Care Provider NI CABRERA Attending Unavailable DEVON MOREIRA Referring Unavailable NI CABRERA Attending Unavailable DEVON MOREIRA Referring Unavailable CAITY IBRAHIM Attending Unavailable MILAGRO QUEEN Referring Unavailable MILAGRO QUEEN Referring Unavailable SARTHAK PARNELL Attending Unavailable Allergies Allergy Classification Reported Allergen(s) Allergy Type Date of Onset Reaction(s) Facility (20 sources) Pyridostigmine; Translations: [PYRIDOSTIGMINE BROMIDE] Drug Allergy 2 GI Upset [facility] Work Phone: (1 source) Pyridostigmine Drug [...] Indications: Type 1 diabetes mellitus with nephropathy ([facility]) 3 units breakfast, 5 units lunch, [...] 10 units and notify provider K Phos Boundary-Sod Phos Di & Boundary [id number] MG (6 sources) take 155-852 tablets by mouth twice daily K Phos Boundary-Sod Phos Di & Boundary 155-852-130 MG 1 tablet Orally twice daily Active take 155-852 tablets by mouth four times daily take 155-852 tablets by mouth four times daily K Phos Bound[place]-Sod Phos Di & Boundary 155-852-130 MG 1 tablet Orally Four times [...] by mouth daily with lunch. Magic Cup [place] with lunch 7110 mL 0 12/11/2021 Active Comment on above: Take 237 mL by mouth daily with lunch. 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; Translations: [DAY CARE ATTENDANT CURRENT USE OF INSULIN] Onset: 2 Episodic Other aftercare (5 sources) 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 of anticoagulants; Translations: [DAY CARE ATTENDANT CURRNT USE ANTICOAGULANTS] Onset: 3 Episodic [...] 07-30-2006 Episodic Other aftercare (2 sources) Other longterm (current) drug therapy; Translations: [OTH DAY CARE ATTENDANT CURRENT DRUG THERAPY] Onset: 02-05-2022 Episodic Other aftercare (4 sources) Encounter for orthopedic aftercare following surgical amputation; Translations: [ENC ORTHOPED AFTERCARE FLW SURG AMP] Onset: 02-05-2022 Episodic Other aftercare (4 sources) intermediate (current) use of antibiotics; Translations: [DETENTION CURRENT USE ANTIBIOTICS] Onset: 12-20-2021 Episodic Other aftercare (1 source) 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) use of aspirin; Translations: [DAY CARE ATTENDANT CURRENT USE OF ASPIRIN] Onset: 01-19-2022 [...] Range Facility Office Visiton 05-19-2023 Follow-up visit [id number] Alex Almonte 1945 M Date Provider Department Center 05/19/2023 Marlene-CAITY IBRAHIM CARD [facility] Family History Problem Relation Age of Onset Cancer Mother Aneurysm Father Cancer Father Parkinsonism Father Family Status - Relation Status Age at Mother Father Level of Service:58016 PA OFFICE/OUTPATIENT ESTABLISHED LOW MDM 20 MIN Reason for Visit and Comments: Follow-up [437383] - 6 month follow up Normal [facility] HbA1c (Bld) [Mass fraction]o n 03-18-2023 Interpretation and review of laboratory results Normal [facility] [employer] POCT glycosylated hemoglobin (Hb A1C) docked deviceon 03-18-2023 HbA1c (Bld) [Mass fraction] 7.8 % [facility] CNPRosalie 12-25-2022 CNPN Telephone (TXCTGL) ALEX ALMONTE ([id number]) 1945 M Date Time Provider Department 12/25/22 KIDNEY TXP COORDINATORS TXCTGL During your visit today, we recorded the following information about you: Duane Ryan 12/25/2022 10:41 AM Signed Labs 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 Administrative Manager Resource Allergies As of Date: 12/25/2022 Noted Allergy [...] by mouth daily with lunch. 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 Sonya 11-11-2022 [place]RAD[place] Telephone (TXCTGL) ALEX ALMONTE ([id number]) 1945 M Date Time Provider Department 11/11/22 [...] by mouth daily with lunch. Magic Cup [place] with lunch aspirin, enteric coated (ASPIRIN, ENTERIC [...] in am? thanks! RF Pts RN at [facility] reports pts sister picks up Rx [...] (more content not included)... Normal [facility] Office Visiton 09-09-2022 Follow-up visit [id number] Alex Almonte Kate 1945 M Date Provider Department Center 09/09/2022 1596-SARTHAK PARNELL CARD [facility] Family History Problem Relation Age of Onset Cancer Mother Aneurysm Father Cancer Father Parkinsonism Father Family Status - Relation Status Age at Mother Father Level of Service:41166 PA OFFICE/OUTPATIENT ESTABLISHED MOD MDM 30-39 MIN Normal [facility] Glucose Poct Glucometerson 0 07-20-2022 Commemt1 Glu2: Cleaned Meter Normal [facility] Comment on above: Result Comment: PERF ORMED BY: [facility] [address] [place] [address] PATHOLOGIST PAINT LINE SUPERVISOR JOSE F ELLIOTT M.D. Performed By: #### G MADY #### Point of Care testing , Glucose [Mass/Vol] 176 mg/dL Normal [facility] Comment on above: Result Comment: [facility] Glucose Reference Range is dependent on time and content of last meal. Glucose of more than 200 mg/dL in a nonstressed, ambulatory subject supports the diagnosis of Diabetes Mellitus. Performed By: #### G LULS #### Point of Care testing , FK506 (TACROLIMUS) WHOLE BLO ODon 07-12-2022 Tacrolimus (FK506), Blood 10.9 ng/mL Normal 2.0-20.[address] [facility] Comment on above: Result Comment: Trou gh (immediately following transplant) 15.0 . Trough (steady state, 2 weeks or more after transplant): 3.0 - 8.0 . Performed by LC-MS/MS technology. Performed By: #### F K506T ####[facility] [address] [place], [place] [address]Dr. Farhat Leal CBC AUTO DIFFon 07-10-2022 BASO # 0.0 103/ul Normal 0.0-0.1 [facility] Comment on above: Performed By: #### C BC ####[facility] B[address]msvz[address] [place], [place] [address]Dr. Farhat Leal Basophils/100 WBC (Bld) 0.5 % Normal 0.2-2.[address] [facility] Comment on above: Performed By: #### C BC ####[facility] [address] [place], [place] [address]Dr. Farhat Leal EO # 0.3 103/ul Normal 0.0-0.[address] [facility] Comment on above: Performed By: #### C BC ####[facility] Jyeldinj[address] [place], [place] [address]Dr. Farhat Leal Eosinophils/100 WBC (Bld) 4.9 % Normal 0.9-7.[address] [facility] Comment on above: Performed By: #### C BC ####[facility] [address] [place], [place] [address]DrSkylar Leal Erythrocyte distribution width (RBC) [Ratio] 13.8 % Normal 11.0-15.0 [facility] Comment on above: Performed By: #### C BC ####[facility] [address] [place] [address]Dr. Farhat Leal Hematocrit (Bld) [Volume fraction] 36.6 % Critically low 42.0-54.0 [facility] Comment on above: Performed By: #### C BC ####[facility] S[address]nffum[address] [place], [place] [address]DrSkylar Leal Hemoglobin (Bld) [Mass/Vol] 12.2 g/dL Critically low 14.0-18.0 [facility] Comment on above: Performed By: #### C BC ####[facility] [address]xme[address]yv[address] [place], [place] [address]Dr. Farhat Leal IG # 0.01 10e3/ul Normal 0.00-0.03 [facility] Comment on above: Performed By: #### C BC ####[facility] Mr[address]qyuug[address] [place], [place] [address]Dr. Farhat Leal IG % 0.2 % Normal 0.0-0.5 [facility] Comment on above: Performed By: #### C BC ####[facility] [address]mdmdz[address] [place], [place] [address]DrSkylar Leal LYMPH # 2.2 103/ul Normal 1.2-3.[address] [facility] Comment on above: Performed By: #### C BC ####[facility] X[address] [place], [place] [address]DrSkylar Leal Lymphocytes/100 WBC (Bld) 33.9 % Normal 20.5-60.[address] [facility] Comment on above: Performed By: #### C BC ####[facility] [address]cl[address] [place], [place] [address]DrSkylar Leal MANUAL DIFF REQ NO Normal [facility] Comment on above: Performed By: #### C BC ####[facility] [address]idrefrbc[address] [place], [place] [address]DrSkylar Leal MCH (RBC) [Entitic mass] 31.0 pg Normal 25.9-34.0 [facility] Comment on above: Performed By: #### C BC ####[facility] [address] [place] [address]DrSkylar Leal MCHC (RBC) [Mass/Vol] 33.3 g/dL Normal 29.9-35.2 [facility] Comment on above: Performed By: #### C BC ####[facility] [address] [place], [place] [address]DrSkylar Leal MCV (RBC) [Entitic vol] 93.1 fL Normal 80.0-94.[address] [facility] Comment on above: Performed By: #### C BC ####[facility] [address]zebermbv[address] [place], [place] [address]DrSkylar Leal MONO # 0.7 103/ul Normal 0.3-0.[address] [facility] Comment on above: Performed By: #### C BC ####[facility] [address]sytkn[address] [place], [place] [address]DrSkylar Leal Monocytes/100 WBC (Bld) 10.8 % Normal 1.7-12.[address] [facility] Comment on above: Performed By: #### C BC ####[facility] M[address]jks[address] [place], [place] [address]DrSkylar Leal NEUT # 3.2 103/ul Normal 1.4-6.[address] [facility] Comment on above: Performed By: #### C BC ####[facility] Bybvdegkms[address] [place], [place] [address]DrSkylar Leal Neutrophils/100 WBC (Bld) 49.7 % Normal 43.0-75.[address] [facility] Comment on above: Performed By: #### C BC ####[facility] Dxoxxsboof[address] [place], [place] [address]DrSkylar Leal Platelet mean volume (Bld) [Entitic vol] 10.9 fL Normal 9.5-13.[address] [facility] Comment on above: Performed By: #### C BC ####[facility] Ofkvbswjkc[address] [place], [place] [address]DrSkylar Leal PLT 195 103/ul Normal 150-[address] [facility] Comment on above: Performed By: #### C BC ####[facility] [address] [place] [phone]. Farhat Leal RBC 3.93 106/ul Critically low 4.70-6.10 [facility] Comment on above: Performed By: #### C BC ####[facility] [address] [place] [phone]. Farhat Leal WBC 6.4 103/ul Normal 4.0-11.[address] [facility] Comment on above: Performed By: #### C BC ####[facility] [address] [place] [address]Dr. Farhat Leal MAGNESIUMon 07-10-2022 Magnesium [Mass/Vol] 1.9 mg/dL Normal 1.8-2.[address] [facility] Comment on above: Performed By: #### HENRI Winters ####[facility] [address] [place], [place] [address]Dr. Farhat Leal PHOSPHORUSon 07-10-2022 Phosphate [Mass/Vol] 4.7 mg/dL Normal 2.6-4.[address] [facility] Comment on above: Performed By: #### HENRI Winters ####[facility] [address] [place] [address]Dr. Farhat Leal PROF 14(COMP METB)on 023 Albumin [Mass/Vol] 2.7 g/dL Critically low 3.4-5.0 [facility] Comment on above: Performed By: #### C MP ####[facility] [address] [place] [phone]. Farhat Leal Albumin/Globulin [Mass ratio] 0.8 {ratio} Normal [facility] Comment on above: Performed By: #### C MP ####[facility] [address]jeehoc[address] [place] [phone]. Farhat Leal ALP [Catalytic activity/Vol] 59 U/L Normal 46-[address] [facility] Comment on above: Performed By: #### C MP ####[facility] [address] [place] [phone]. Farhat Leal ALT [Catalytic activity/Vol] 16 U/L Normal 16-[address] [facility] Comment on above: Performed By: #### C MP ####[facility] [address] [place] [address]Dr. Farhat Leal Anion gap [Moles/Vol] 12.3 mmol/L Normal [facility] Comment on above: Performed By: #### C MP ####[facility] [address] [place] [address]Dr. Farhat Leal AST [Catalytic activity/Vol] 17 U/L Normal 15-37 [facility] Comment on above: Performed By: #### C MP ####[facility] [address] [place] [address]Dr. Farhat Leal Bilirubin [Mass/Vol] 0.5 mg/dL Normal 0.2-1.[address] [facility] Comment on above: Performed By: #### C MP ####[facility] [address] [place], [place] [address]Dr. Farhat Leal Calcium [Mass/Vol] 8.5 mg/dL Normal 8.5-10.1 [facility] Comment on above: Performed By: #### C MP ####[facility] [address]zdx[address] [place], [place] [address]Dr. Farhat Leal Chloride [Moles/Vol] 104 mmol/L Normal 98-[address] [facility] Comment on above: Performed By: #### C MP ####[facility] [address] [place] [address]Dr. Farhat Leal CO2 [Moles/Vol] 27.6 mmol/L Normal 21.0-32.0 [facility] Comment on above: Performed By: #### C MP ####[facility] [address] [place], [place] [address]Dr. Farhat Leal Creatinine [Mass/Vol] 1.79 mg/dL Critically high 0.70-1.30 [facility] Comment on above: Performed By: #### C MP ####[facility] [address] [place], [place] [address]Zs. Farhat Leal EGFR-AF CITIZEN OF [place] 45 mL/min/1.73m2 Critically low >=60 [facility] Comment on above: Performed By: #### C MP ####[facility] [address] [place] [phone]. Farhat Leal EGFR-NON AF CITIZEN OF [place] 37 mL/min/1.73m2 Critically low >=60 [facility] Comment on above: Performed By: #### C MP ####[facility] [address] [place] [phone]. Farhat Leal Globulin (S) [Mass/Vol] 3.2 g/dL Normal [facility] Comment on above: Performed By: #### C MP ####[facility] [address]bk[address] [place] [phone]. Farhat Leal Glucose [Mass/Vol] 203 mg/dL Critically high 74-106 [facility] Comment on above: Performed By: #### C MP ####[facility] [address]celcbe[address] [place] [phone]. Farhat Leal Potassium [Moles/Vol] 3.9 mmol/L Normal 3.5-5.1 [facility] Comment on above: Performed By: #### C MP ####[facility] [address]afpzvv[address] [place] [phone]. Farhat Leal Protein [Mass/Vol] 5.9 g/dL Critically low 6.4-8.2 [facility] Comment on above: Performed By: #### C MP ####[facility] [address]utm[address] [place] [phone]. Farhat Leal Sodium [Moles/Vol] 140 mmol/L Normal 136-145 [facility] Comment on above: Performed By: #### C MP ####[facility] [address]axp[address] [place] [phone]. Farhat Leal Urea nitrogen [Mass/Vol] 61.0 mg/dL Critically high 7.0-18.0 [facility] Comment on above: Performed By: #### C MP ####[facility] [address]nx[address] [place] [address]Dr. Farhat Leal Urea nitrogen/Creatinine [Mass ratio] 34.1 mg/mg Normal [facility] Comment on above: Performed By: #### C MP ####[facility] [address] [place], [place] [address]DrSkylar Leal PROTIMEon 07-10-2022 INR Coag (PPP) [Relative time] 2.95 {INR} Normal [facility] Comment on above: Performed By: #### P T ####[facility] [address] [place], [place] [address]Dr. Farhat Leal INR GUIDELINES SEE BELOW Normal [facility] Comment on above: Result Comment: MALINA RED INR: 2.0 - 3.0 CONDITIONS NOT LISTED BELOW 2.5 - 3.5 FOR PROSTHETIC HEART VALVE REPLACEMENT 2.5 - 3.5 RECURRENT THROMBOSIS Performed By: #### P T ####[facility] [address] [place], [place] [address]DrSkylar Leal PT Coag (PPP) [Time] 29.4 s Critically high 9.0-11.[address] [facility] Comment on above: Performed By: #### P T ####[facility] [address] [place], [place] [address]DrSkylar Leal FK506 (TACROLIMUS) WHOLE BLO ODon 07-07-2022 Tacrolimus (FK506), Blood 8.3 ng/mL Normal 2.0-20.[address] [facility] Comment on above: Result Comment: Trou gh (immediately following transplant) 15.0 . Trough (steady state, 2 weeks or more after transplant): 3.0 - 8.0 . Performed by LC-MS/MS technology. Performed By: #### F K506T ####[facility] [address] [place], [place] [address]DrSkylar Leal CBC AUTO DIFFon 07-03-2022 BASO # 0.0 103/ul Normal 0.0-0.[address] [facility] Comment on above: Performed By: #### C BC ####[facility] [address] [place], [place] [address]DrSkylar Leal Basophils/100 WBC (Bld) 0.6 % Normal 0.2-2.[address] [facility] Comment on above: Performed By: #### C BC ####[facility] [address]gc[address] [place], [place] [address]Dr. Farhat Leal EO # 0.3 103/ul Normal 0.0-0.[address] [facility] Comment on above: Performed By: #### C BC ####[facility] [address] [place], [place] [address]Dr. Farhat Leal Eosinophils/100 WBC (Bld) 4.1 % Normal 0.9-7.[address] [facility] Comment on above: Performed By: #### C BC ####[facility] [address]xowumgf[address] [place], [place] [address]Dr. Farhat Leal Erythrocyte distribution width (RBC) [Ratio] 14.0 % Normal 11.0-15.[address] [facility] Comment on above: Performed By: #### C BC ####[facility] [address] [place], [place] [address]Dr. Farhat Leal Hematocrit (Bld) [Volume fraction] 35.9 % Critically low 42.0-54.0 [facility] Comment on above: Performed By: #### C BC ####[facility] [address]vsxtmkf[address] [place], [place] [address]Dr. Farhat Leal Hemoglobin (Bld) [Mass/Vol] 12.0 g/dL Critically low 14.0-18.[address] [facility] Comment on above: Performed By: #### C BC ####[facility] [address]yjvo[address] [place], [place] [address]Dr. Farhat Leal IG # 0.04 10e3/ul Critically high 0.00-0.03 [facility] Comment on above: Performed By: #### C BC ####[facility] [address] [place], [place] [address]Dr. Farhat Leal IG % 0.6 % Critically high 0.0-0.[address] [facility] Comment on above: Performed By: #### C BC ####[facility] [address] [place], [place] [address]Dr. Farhat Leal LYMPH # 1.5 103/ul Normal 1.2-3.[address] [facility] Comment on above: Performed By: #### C BC ####[facility] [address]qr[address] [place] [phone]. Farhat Leal Lymphocytes/100 WBC (Bld) 21.5 % Normal 20.5-60.[address] [facility] Comment on above: Performed By: #### C BC ####[facility] [address]xp[address] [place] [address]Dr. Farhat Leal MANUAL DIFF REQ NO Normal [facility] Comment on above: Performed By: #### C BC ####[facility] [address] [place] [address]Dr. Farhat Leal MCH (RBC) [Entitic mass] 30.8 pg Normal 25.9-34.[address] [facility] Comment on above: Performed By: #### C BC ####[facility] [address] [place] [address]Dr. Farhat Leal MCHC (RBC) [Mass/Vol] 33.4 g/dL Normal 29.9-35.[address] [facility] Comment on above: Performed By: #### C BC ####[facility] [address] [place] [address]Dr. Farhat Leal MCV (RBC) [Entitic vol] 92.1 fL Normal 80.0-94.[address] [facility] Comment on above: Performed By: #### C BC ####[facility] [address] [place] [address]Dr. Farhat Leal MONO # 0.6 103/ul Normal 0.3-0.[address] [facility] Comment on above: Performed By: #### C BC ####[facility] [address] [place] [address]Dr. Farhat Leal Monocytes/100 WBC (Bld) 8.7 % Normal 1.7-12.[address] [facility] Comment on above: Performed By: #### C BC ####[facility] [address] [place] [address]Dr. Farhat Leal NEUT # 4.4 103/ul Normal 1.4-6.5 [facility] Comment on above: Performed By: #### C BC ####[facility] [address]av[address] [place] [address]Dr. Farhat Leal Neutrophils/100 WBC (Bld) 64.5 % Normal 43.0-75.0 [facility] Comment on above: Performed By: #### C BC ####[facility] [address] [place] [address]Dr. Farhat Leal Platelet mean volume (Bld) [Entitic vol] 10.1 fL Normal 9.5-13.5 [facility] Comment on above: Performed By: #### C BC ####[facility] [address]qdcprx[address] [place] [address]Dr. Farhat Elvis PLT 177 103/ul Normal 150-450 [facility] Comment on above: Performed By: #### C BC ####[facility] [address]quowdxn[address] [place] [address]Dr. Farhat Elvis RBC 3.90 106/ul Critically low 4.70-6.[address] [facility] Comment on above: Performed By: #### C BC ####[facility] [address]qxnjiibio[address] [place], [place] [address]Dr. Farhat Elvis WBC 6.8 103/ul Normal 4.0-11.0 [facility] Comment on above: Performed By: #### C BC ####[facility] [address]mj[address] [place], [place] [address]DrSkylar Leal PROF 14(COMP METB)on 023 Albumin [Mass/Vol] 2.8 g/dL Critically low 3.4-5.0 [facility] Comment on above: Performed By: #### C MP ####[facility] [address] [place], [place] [address]Dr. Madelynlorri Elvis Albumin/Globulin [Mass ratio] 0.8 {ratio} Normal [facility] Comment on above: Performed By: #### C MP ####[facility] [address] [place], [place] [address]Dr. Farhat Leal ALP [Catalytic activity/Vol] 68 U/L Normal 46-116 [facility] Comment on above: Performed By: #### C MP ####[facility] [address]kp[address] [place] [address]Dr. Farhat Leal ALT [Catalytic activity/Vol] 20 U/L Normal 16-63 [facility] Comment on above: Performed By: #### C MP ####[facility] [address]wm[address] [place] [address]Dr. Farhat Leal Anion gap [Moles/Vol] 11.1 mmol/L Normal Th [facility] Comment on above: Performed By: #### C MP ####[facility] [address]pcu[address] [place], [place] [address]Dr. Farhat Leal AST [Catalytic activity/Vol] 22 U/L Normal 15-37 [facility] Comment on above: Performed By: #### C MP ####[facility] [address] [place], [place] [address]Dr. Farhat Elvis Bilirubin [Mass/Vol] 0.4 mg/dL Normal 0.2-1.0 [facility] Comment on above: Performed By: #### C MP ####[facility] [address]rrpajsx[address] [place], [place] [address]Dr. Farhat Elvis Calcium [Mass/Vol] 8.5 mg/dL Normal 8.5-10.1 [facility] Comment on above: Performed By: #### C MP ####[facility] [address] [place] [address]Dr. Farhat Elvis Chloride [Moles/Vol] 106 mmol/L Normal 98-107 [facility] Comment on above: Performed By: #### C MP ####[facility] Psdbtcjirq4448 [place] [address]Dr. Farhat Elvis CO2 [Moles/Vol] 29.1 mmol/L Normal 21.0-32.0 [facility] Comment on above: Performed By: #### C MP ####[facility] Nhakvtfnbb8157 [place] [address]DrSkylar Leal Creatinine [Mass/Vol] 1.70 mg/dL Critically high 0.70-1.30 [facility] Comment on above: Performed By: #### C MP ####[facility] Otyvdujdnt4840 [place] [address]Dr. Farhat Elvis EGFR-AF CITIZEN OF [place] 48 mL/min/1.73m2 Critically low >=60 [facility] Comment on above: Performed By: #### C MP ####[facility] Pghicqycrb1309 [place] [address]Dr. Farhat Leal EGFR-NON AF CITIZEN OF [place] 39 mL/min/1.73m2 Critically low >=60 [facility] Comment on above: Performed By: #### C MP ####[facility] Oszgdijjcs[address] [place], [place] [address]Dr. Farhat Leal Globulin (S) [Mass/Vol] 3.6 g/dL Normal [facility] Comment on above: Performed By: #### C MP ####[facility] Zwnompwixc[address] [place], [place] [address]Dr. Farhat Leal Glucose [Mass/Vol] 312 mg/dL Critically high 74-106 [facility] Comment on above: Performed By: #### C MP ####[facility] Xwkpzkhwck[address] [place], [place] [address]Dr. Farhat Leal Potassium [Moles/Vol] 4.2 mmol/L Normal 3.5-5.1 [facility] Comment on above: Performed By: #### C MP ####[facility] Rneetvuxkv8253 [place] [address]Dr. Farhat Leal Protein [Mass/Vol] 6.4 g/dL Normal 6.4-8.2 [facility] Comment on above: Performed By: #### C MP ####[facility] Nmpdlsahhv[address] [place], [place] [address]Dr. Farhat Leal Sodium [Moles/Vol] 142 mmol/L Normal 136-145 [facility] Comment on above: Performed By: #### C MP ####[facility] Sjzyjajezr[address] [place], [place] [address]Dr. Farhat Leal Urea nitrogen [Mass/Vol] 49.0 mg/dL Critically high 7.0-18.0 [facility] Comment on above: Performed By: #### C MP ####[facility] Oibyjfwutx8351 [place] [address]DrSkylar Leal Urea nitrogen/Creatinine [Mass ratio] 28.8 mg/mg Normal [facility] Comment on above: Performed By: #### C MP ####[facility] Hahkaviuaq[address] [place], [place] [address]DrSkylar Leal PROTIMEon 07-03-2022 INR Coag (PPP) [Relative time] 2.23 {INR} Normal [facility] Comment on above: Performed By: #### P T ####[facility] Oxtyhfkbxw[address] [place], [place] [address]DrSkylar Leal INR GUIDELINES SEE BELOW Normal [facility] Comment on above: Result Comment: MALINA RED INR: 2.0 - 3.0 CONDITIONS NOT LISTED BELOW 2.5 - 3.5 FOR PROSTHETIC HEART VALVE REPLACEMENT 2.5 - 3.5 RECURRENT THROMBOSIS Performed By: #### P T ####[facility] Sdbeeqeewq[address] [place], [place] [address]DrSkylar Leal PT Coag (PPP) [Time] 22.6 s Critically high 9.0-11.[address] [facility] Comment on above: Performed By: #### P T ####[facility] Ihfqkywxfb59[address] [place], [place] [address]DrSkylar Leal FK506 (TACROLIMUS) WHOLE BLO ODon 06-29-2022 Tacrolimus (FK506), Blood 12.2 ng/mL Normal 2.0-20.0 [facility] Comment on above: Result Comment: Trou gh (immediately following transplant) 15.0 . Trough (steady state, 2 weeks or more after transplant): 3.0 - 8.0 . Performed by LC-MS/MS technology. Performed By: #### F K506T ####[facility] Fqfdsvbvqx84[address] [place], [place] [address]DrSkylar Leal CBC AUTO DIFFon 06-26-2022 BASO # 0.0 103/ul Normal 0.0-0.[address] [facility] Comment on above: Performed By: #### C BC ####[facility] Mqcvtlvwke9399 [place] [address]Dr. Farhat Leal Basophils/100 WBC (Bld) 0.5 % Normal 0.2-2.[address] [facility] Comment on above: Performed By: #### C BC ####[facility] Prmctjtcsb[address] [place], [place] [address]Dr. Farhat Leal EO # 0.3 103/ul Normal 0.0-0.[address] [facility] Comment on above: Performed By: #### C BC ####[facility] Jaxxxzsfrk2516[address] [place], [place] [address]Dr. Farhat Leal Eosinophils/100 WBC (Bld) 4.3 % Normal 0.9-7.[address] [facility] Comment on above: Performed By: #### C BC ####[facility] Htcdljufqx1360[address] [place], [place] [address]Dr. Farhat Leal Erythrocyte distribution width (RBC) [Ratio] 14.1 % Normal 11.0-15.0 [facility] Comment on above: Performed By: #### C BC ####[facility] Arhbywpkev25[address] [place], [place] [address]Dr. Farhat Leal Hematocrit (Bld) [Volume fraction] 35.4 % Critically low 42.0-54.0 [facility] Comment on above: Performed By: #### C BC ####[facility] Axrjgsnxbb649[address] [place], [place] [address]Dr. Farhat Leal Hemoglobin (Bld) [Mass/Vol] 11.8 g/dL Critically low 14.0-18.[address] [facility] Comment on above: Performed By: #### C BC ####[facility] Kushgwramx107[address] [place], [place] [address]Dr. Farhat Leal IG # 0.02 10e3/ul Normal 0.00-0.[address] [facility] Comment on above: Performed By: #### C BC ####[facility] Pxyvfhomlu[address] [place], [place] [address]Dr. Farhat Leal IG % 0.3 % Normal 0.0-0.5 [facility] Comment on above: Performed By: #### C BC ####[facility] Lditnzvrre6561 [place] [address]Dr. Madelynlorri Elvis LYMPH # 2.4 103/ul Normal 1.2-3.8 [facility] Comment on above: Performed By: #### C BC ####[facility] Frcpoxfsoj2029 [place] [address]Dr. Farhat Leal Lymphocytes/100 WBC (Bld) 40.4 % Normal 20.5-60.0 [facility] Comment on above: Performed By: #### C BC ####[facility] Wqwhqkvqac8099 [place] [address]DrSkylar Leal MANUAL DIFF REQ NO Normal [facility] Comment on above: Performed By: #### C BC ####[facility] Dxuslzzmgn68[address] [place], [place] [address]Dr. Farhat Leal MCH (RBC) [Entitic mass] 31.0 pg Normal 25.9-34.0 [facility] Comment on above: Performed By: #### C BC ####[facility] Xfeuhogzqp0329 [place] [address]Dr. Farhat Leal MCHC (RBC) [Mass/Vol] 33.3 g/dL Normal 29.9-35.2 [facility] Comment on above: Performed By: #### C BC ####[facility] Awfvjpihlg3733 [place] [address]Dr. Farhat Leal MCV (RBC) [Entitic vol] 92.9 fL Normal 80.0-94.0 [facility] Comment on above: Performed By: #### C BC ####[facility] Zrlruroyey9[address] [place], [place] [address]DrSkylar Leal MONO # 0.7 103/ul Normal 0.3-0.8 [facility] Comment on above: Performed By: #### C BC ####[facility] Xzvmivfzrk7331 [place] [phone]. Farhat Leal Monocytes/100 WBC (Bld) 11.1 % Normal 1.7-12.0 [facility] Comment on above: Performed By: #### C BC ####[facility] Svswkdjfmn3370 [place] [address]Dr. Farhat Leal NEUT # 2.6 103/ul Normal 1.4-6.5 [facility] Comment on above: Performed By: #### C BC ####[facility] Nnmcndaggz5207 [place] [phone] Leal Neutrophils/100 WBC (Bld) 43.4 % Normal 43.0-75.0 [facility] Comment on above: Performed By: #### C BC ####[facility] Kfflzuxakx8008 [place] [address]Dr. Farhat Leal Platelet mean volume (Bld) [Entitic vol] 10.4 fL Normal 9.5-13.5 [facility] Comment on above: Performed By: #### C BC ####[facility] Ktqmfmfvbj4458 [place] [address]Dr. Farhat Leal PLT 211 103/ul Normal 150-450 [facility] Comment on above: Performed By: #### C BC ####[facility] Qderqbcrjs[address] [place], [place] [address]Dr. Farhat Leal RBC 3.81 106/ul Critically low 4.70-6.10 [facility] Comment on above: Performed By: #### C BC ####[facility] Jptguojmlt9110 [place] [phone]. Farhat Leal WBC 6.0 103/ul Normal 4.0-11.0 [facility] Comment on above: Performed By: #### C BC ####[facility] Rlssmdbwdf5599 [place] [phone] Leal PROF 14(COMP METB)on 023 Albumin [Mass/Vol] 2.6 g/dL Critically low 3.4-5.0 [facility] Comment on above: Performed By: #### C MP ####[facility] Qpjyxqjvfi3208 [place] [address]DrSkylar Leal Albumin/Globulin [Mass ratio] 0.8 {ratio} Normal [facility] Comment on above: Performed By: #### C MP ####[facility] Sobifzjlbv7956 [place] [address]Dr. Farhat Elvis ALP [Catalytic activity/Vol] 64 U/L Normal 46-116 [facility] Comment on above: Performed By: #### C MP ####[facility] Ooyxkomljb3573 [place] [address]Dr. Farhat Elvis ALT [Catalytic activity/Vol] 18 U/L Normal 16-63 [facility] Comment on above: Performed By: #### C MP ####[facility] Gborqxonmx[address] [place], [place] [address]Dr. Farhat Leal Anion gap [Moles/Vol] 10.2 mmol/L Normal [facility] Comment on above: Performed By: #### C MP ####[facility] Revrneestw69[address] [place], [place] [address]Dr. Farhat Leal AST [Catalytic activity/Vol] 16 U/L Normal 15-37 [facility] Comment on above: Performed By: #### C MP ####[facility] Olbphnhrbh4[address] [place], [place] [address]Dr. Farhat Leal Bilirubin [Mass/Vol] 0.6 mg/dL Normal 0.2-1.0 [facility] Comment on above: Performed By: #### C MP ####[facility] Rhqupvxhkh[address] [place], [place] [address]Dr. Farhat Leal Calcium [Mass/Vol] 8.5 mg/dL Normal 8.5-10.1 [facility] Comment on above: Performed By: #### C MP ####[facility] [address]ixnqxurjw[address] [place], [place] [address]Dr. Farhat Leal Chloride [Moles/Vol] 106 mmol/L Normal 98-107 [facility] Comment on above: Performed By: #### C MP ####[facility] Zwyahplvhu[address] [place], [place] [address]Dr. Farhat Leal CO2 [Moles/Vol] 29.8 mmol/L Normal 21.0-32.0 [facility] Comment on above: Performed By: #### C MP ####[facility] Pejttocfue3106 [place] [phone]. Farhat Leal Creatinine [Mass/Vol] 1.60 mg/dL Critically high 0.70-1.30 [facility] Comment on above: Performed By: #### C MP ####[facility] Zxmvuedrag7718 [place] [phone]. Farhat Leal EGFR-AF [place]IZ[place] 51 mL/min/1.73m2 Critically low >=60 [facility] Comment on above: Performed By: #### C MP ####[facility] Rmpogqcxdr5783 [place] [phone]. Farhat Leal EGFR-NON AF [place]IZ[place] 42 mL/min/1.73m2 Critically low >=60 [facility] Comment on above: Performed By: #### C MP ####[facility] Txosemdtyr9816 [place] [phone]. Farhat Elvis Globulin (S) [Mass/Vol] 3.4 g/dL Normal [facility] Comment on above: Performed By: #### C MP ####[facility] Qvchkqhvns8776 [place] [phone]. Farhat Leal Glucose [Mass/Vol] 178 mg/dL Critically high 74-106 [facility] Comment on above: Performed By: #### C MP ####[facility] Mammvpoicy1086 [place] [phone]. Farhat Elvis Potassium [Moles/Vol] 4.0 mmol/L Normal 3.5-5.1 [facility] Comment on above: Performed By: #### C MP ####[facility] Hpikdrrdht3[address] [place], [place] [address]Dr. Farhat Leal Protein [Mass/Vol] 6.0 g/dL Critically low 6.4-8.2 [facility] Comment on above: Performed By: #### C MP ####[facility] Fvhkdpjrlv5929 [place] [phone]. Farhat Leal Sodium [Moles/Vol] 142 mmol/L Normal 136-145 [facility] Comment on above: Performed By: #### C MP ####[facility] Fvgnbyccby5607 [place] [address]Dr. Farhat Leal Urea nitrogen [Mass/Vol] 49.0 mg/dL Critically high 7.0-18.0 [facility] Comment on above: Performed By: #### C MP ####[facility] Tceekkfsii9099 [place] [address]Dr. Farhat Leal Urea nitrogen/Creatinine [Mass ratio] 30.6 mg/mg Normal [facility] Comment on above: Performed By: #### C MP ####[facility] Pbtgqenwnq5176 [place] [address]Dr. Farhat Leal PROTIMEon 06-26-2022 INR Coag (PPP) [Relative time] 1.77 {INR} Normal [facility] Comment on above: Performed By: #### P T ####[facility] Zvqzrtcukh[address] [place], [place] [address]Dr. Farhat Leal INR GUIDELINES SEE BELOW Normal [facility] Comment on above: Result Comment: MALINA RED INR: 2.0 - 3.0 CONDITIONS NOT LISTED BELOW 2.5 - 3.5 FOR PROSTHETIC HEART VALVE REPLACEMENT 2.5 - 3.5 RECURRENT THROMBOSIS Performed By: #### P T ####[facility] [address]zvkbjbvmy[address] [place], [place] [address]Dr. Farhat Leal PT Coag (PPP) [Time] 18.2 s Critically high 9.0-11.[address] [facility] Comment on above: Performed By: #### P T ####[facility] Drjkgpezdf0399[address] [place], [place] [address]Dr. Farhat Leal FK506 (TACROLIMUS) WHOLE BLO ODon 06-22-2022 Tacrolimus (FK506), Blood 24.5 ng/mL Invalid Interpretation Code 2.0-20.0 [facility] Comment on above: Result Comment: Trou gh (immediately following transplant) 15.0 . Trough (steady state, 2 weeks or more after transplant): 3.0 - 8.0 . Performed by LC-MS/MS technology.Patient drug level exceeds published reference range. Evaluateclinically for signs of potential toxicity. Performed By: #### F K506T ####[facility] Oedgvdpwod1117 [place] [address]Dr. Farhat Leal CBC AUTO DIFFon 06-19-2022 BASO # 0.1 103/ul Normal 0.0-0.1 [facility] Comment on above: Performed By: #### C BC ####[facility] Epszvetqyc[address] [place], [place] [address]Dr. Farhat Leal Basophils/100 WBC (Bld) 0.7 % Normal 0.2-2.0 [facility] Comment on above: Performed By: #### C BC ####[facility] Eldzfgvbiv66[address] [place], [place] [address]Dr. Madelynlorri Leal EO # 0.4 103/ul Normal 0.0-0.[address] [facility] Comment on above: Performed By: #### C BC ####[facility] Vbhsmfqeuk20[address] [place], [place] [address]Dr. Madelynlorri Leal Eosinophils/100 WBC (Bld) 5.7 % Normal 0.9-7.[address] [facility] Comment on above: Performed By: #### C BC ####[facility] Topqkvyink750[address] [place], [place] [address]Dr. Farhat Elvis Erythrocyte distribution width (RBC) [Ratio] 14.5 % Normal 11.0-15.0 [facility] Comment on above: Performed By: #### C BC ####[facility] Vxgqziigei419[address] [place], [place] [address]Dr. Farhat Leal Hematocrit (Bld) [Volume fraction] 34.1 % Critically low 42.0-54.[address] [facility] Comment on above: Performed By: #### C BC ####[facility] Hwzclbsdin107[address] [place], [place] [address]Dr. Madelynlorri Leal Hemoglobin (Bld) [Mass/Vol] 11.3 g/dL Critically low 14.0-18.[address] [facility] Comment on above: Performed By: #### C BC ####[facility] Vtrondxtxm[address] [place], [place] [address]Dr. Farhat Leal IG # 0.02 10e3/ul Normal 0.00-0.03 [facility] Comment on above: Performed By: #### C BC ####[facility] Stdxqcvxuv8546 [place] [address]Dr. Farhat Leal IG % 0.3 % Normal 0.0-0.5 [facility] Comment on above: Performed By: #### C BC ####[facility] Wphywjwykx6392 [place] [address]Dr. Farhat Leal LYMPH # 3.1 103/ul Normal 1.2-3.8 [facility] Comment on above: Performed By: #### C BC ####[facility] Jznjojijdw5565 [place] [address]Dr. Farhat Elvis Lymphocytes/100 WBC (Bld) 40.6 % Normal 20.5-60.0 [facility] Comment on above: Performed By: #### C BC ####[facility] Uqhrfcserk1934 [place] [address]Dr. Farhat Elvis MANUAL DIFF REQ NO Normal [facility] Comment on above: Performed By: #### C BC ####[facility] Weqqedgxac8812 [place] [address]Dr. Farhat Leal MCH (RBC) [Entitic mass] 30.6 pg Normal 25.9-34.0 [facility] Comment on above: Performed By: #### C BC ####[facility] Nljysqnauh[address] [place], [place] [address]Dr. Farhat Elvis MCHC (RBC) [Mass/Vol] 33.1 g/dL Normal 29.9-35.2 [facility] Comment on above: Performed By: #### C BC ####[facility] Jvlvdcrqis0952 [place] [address]DrSkylar Farhat Elvis MCV (RBC) [Entitic vol] 92.4 fL Normal 80.0-94.0 [facility] Comment on above: Performed By: #### C BC ####[facility] Zknjkrfwxk[address] [place], [place] [address]Dr. Madelynlorri Leal MONO # 0.8 103/ul Normal 0.3-0.8 [facility] Comment on above: Performed By: #### C BC ####[facility] Zqlsysvnxm0634 [place] [address]Dr. Farhat Leal Monocytes/100 WBC (Bld) 10.6 % Normal 1.7-12.0 [facility] Comment on above: Performed By: #### C BC ####[facility] Zmopukqlao8311 [place] [address]Dr. Farhat Leal NEUT # 3.2 103/ul Normal 1.4-6.5 [facility] Comment on above: Performed By: #### C BC ####[facility] Vucdfoexod2806 [place] [address]Dr. Farhat Leal Neutrophils/100 WBC (Bld) 42.1 % Critically low 43.0-75.0 [facility] Comment on above: Performed By: #### C BC ####[facility] Nrxzgdlmfh9732 [place] [address]Dr. Farhat Leal Platelet mean volume (Bld) [Entitic vol] 10.6 fL Normal 9.5-13.[address] [facility] Comment on above: Performed By: #### C BC ####[facility] Ckfuxemory6631 [place] [address]Dr. Farhat Leal PLT 187 103/ul Normal 150-[address] [facility] Comment on above: Performed By: #### C BC ####[facility] Jrwcdbylgj8368 [place] [address]Dr. Farhat Leal RBC 3.69 106/ul Critically low 4.70-6.[address] [facility] Comment on above: Performed By: #### C BC ####[facility] Sszfpphfhe[address] [place] [phone]. Farhat Leal WBC 7.7 103/ul Normal 4.0-11.[address] [facility] Comment on above: Performed By: #### C BC ####[facility] Ufgdqbskgf5855 [place] [address]DrSkylar Leal PROF 14(COMP METB)on 023 Albumin [Mass/Vol] 2.5 g/dL Critically low 3.4-5.0 [facility] Comment on above: Performed By: #### C MP ####[facility] Wgszqqunqm5945 [place] [address]Dr. Madelynlorri Elvis Albumin/Globulin [Mass ratio] 0.8 {ratio} Normal [facility] Comment on above: Performed By: #### C MP ####[facility] Giunqlhciu1970 [place] [address]Dr. Farhat Leal ALP [Catalytic activity/Vol] 60 U/L Normal 46-116 [facility] Comment on above: Performed By: #### C MP ####[facility] Vwopipibas[address] [place], [place] [address]Dr. Farhat Leal ALT [Catalytic activity/Vol] 16 U/L Normal 16-63 [facility] Comment on above: Performed By: #### C MP ####[facility] Eiefooxshh[address] [place], [place] [address]Dr. Farhat Leal Anion gap [Moles/Vol] 9.1 mmol/L Normal [facility] Comment on above: Performed By: #### C MP ####[facility] Yhcjxtrmhi[address] [place], [place] [address]Dr. Farhat Leal AST [Catalytic activity/Vol] 31 U/L Normal 15-37 [facility] Comment on above: Performed By: #### C MP ####[facility] [address]wweqopt[address] [place], [place] [address]Dr. Farhat Leal Bilirubin [Mass/Vol] 0.3 mg/dL Normal 0.2-1.0 [facility] Comment on above: Performed By: #### C MP ####[facility] Wfchikdxco5[address] [place], [place] [address]Dr. Farhat Leal Calcium [Mass/Vol] 8.2 mg/dL Critically low 8.5-10.1 [facility] Comment on above: Performed By: #### C MP ####[facility] Looocgcvap[address] [place], [place] [address]Dr. Farhat Leal Chloride [Moles/Vol] 106 mmol/L Normal 98-107 [facility] Comment on above: Performed By: #### C MP ####[facility] Wjlrdgjewa8201 [place] [phone]. Farhat Leal CO2 [Moles/Vol] 27.0 mmol/L Normal 21.0-32.0 [facility] Comment on above: Performed By: #### C MP ####[facility] Xetxxtdwid0752 [place] [phone]. Farhat Leal Creatinine [Mass/Vol] 1.51 mg/dL Critically high 0.70-1.30 [facility] Comment on above: Performed By: #### C MP ####[facility] Hopjodvhep3610 [place] [phone]. Farhat Leal EGFR-AF [place]IZ[place] 55 mL/min/1.73m2 Critically low >=60 [facility] Comment on above: Performed By: #### C MP ####[facility] Rdqpsspruv9797 [place] [address]Dr. Farhat Elvis EGFR-NON AF CITIZEN [place] 45 mL/min/1.73m2 Critically low >=60 [facility] Comment on above: Performed By: #### C MP ####[facility] Coohtteszo5706 [place] [phone]. Farhat Elvis Globulin (S) [Mass/Vol] 3.2 g/dL Normal [facility] Comment on above: Performed By: #### C MP ####[facility] Rnsvmlrbgu0687 [place] [phone]. Farhat Elvis Glucose [Mass/Vol] 165 mg/dL Critically high 74-106 [facility] Comment on above: Performed By: #### C MP ####[facility] Jmzawilfvo3498 [place] [phone]. Farhat Elvis Potassium [Moles/Vol] 4.1 mmol/L Normal 3.5-5.1 [facility] Comment on above: Performed By: #### C MP ####[facility] Yculrvxxxm1049 [place] [phone]. Farhat Elvis Protein [Mass/Vol] 5.7 g/dL Critically low 6.4-8.[address] [facility] Comment on above: Performed By: #### C MP ####[facility] Ssuukmxlxc9164 [place] [address]Dr. Farhat Leal Sodium [Moles/Vol] 138 mmol/L Normal 136-145 [facility] Comment on above: Performed By: #### C MP ####[facility] Mjqjrtahxv2889 [place] [address]Dr. Farhat Leal Urea nitrogen [Mass/Vol] 51.0 mg/dL Critically high 7.0-18.0 [facility] Comment on above: Performed By: #### C MP ####[facility] [address]ptvifquhn[address] [place], [place] [address]Dr. Farhat Leal Urea nitrogen/Creatinine [Mass ratio] 33.8 mg/mg Normal [facility] Comment on above: Performed By: #### C MP ####[facility] Wojonnfuou9[address] [place], [place] [address]Dr. Farhat Leal FK506 (TACROLIMUS) WHOLE BLO ODon 06-15-2022 Tacrolimus (FK506), Blood 16.4 ng/mL Normal 2.0-20.0 [facility] Comment on above: Result Comment: Trou gh (immediately following transplant) 15.0 . Trough (steady state, 2 weeks or more after transplant): 3.0 - 8.0 . Performed by LC-MS/MS technology. Performed By: #### F K506T ####[facility] [address]fzqyefrup[address] [place], [place] [address]Dr. Farhat Leal PROTIMEon 06-15-2022 INR Coag (PPP) [Relative time] 1.64 {INR} Normal [facility] Comment on above: Performed By: #### P T ####[facility] [address]ajovtwkyq[address] [place], [place] [address]Dr. Farhat Leal INR GUIDELINES SEE BELOW Normal [facility] Comment on above: Result Comment: MALINA RED INR: 2.0 - 3.0 CONDITIONS NOT LISTED BELOW 2.5 - 3.5 FOR PROSTHETIC HEART VALVE REPLACEMENT 2.5 - 3.5 RECURRENT THROMBOSIS Performed By: #### P T ####[facility] Ukzgqotfit[address] [place], [place] [address]Dr. Farhat Leal PT Coag (PPP) [Time] 16.9 s Critically high 9.0-11.[address] [facility] Comment on above: Performed By: #### P T ####[facility] [address]evfbftod[address] [place], [place] [address]Dr. Farhat Leal CBC AUTO DIFFon 06-12-2022 BASO # 0.0 103/ul Normal 0.0-0.[address] [facility] Comment on above: Performed By: #### C BC ####[facility] Ahtgmagpub[address] [place], [place] [address]Dr. Farhat Leal Basophils/100 WBC (Bld) 0.4 % Normal 0.2-2.[address] [facility] Comment on above: Performed By: #### C BC ####[facility] Mchefawlvm[address] [place], [place] [address]Dr. Farhat Leal EO # 0.4 103/ul Normal 0.0-0.[address] [facility] Comment on above: Performed By: #### C BC ####[facility] [address] [place], [place] [address]Dr. Farhat Leal Eosinophils/100 WBC (Bld) 5.4 % Normal 0.9-7.[address] [facility] Comment on above: Performed By: #### C BC ####[facility] Yvprgbfgun[address] [place], [place] [address]Dr. Farhat Leal Erythrocyte distribution width (RBC) [Ratio] 14.7 % Normal 11.0-15.[address] [facility] Comment on above: Performed By: #### C BC ####[facility] [address]ls[address] [place], [place] [address]Dr. Farhat Leal Hematocrit (Bld) [Volume fraction] 34.8 % Critically low 42.0-54.[address] [facility] Comment on above: Performed By: #### C BC ####[facility] W[address]rqj[address] [place], [place] [address]Dr. Farhat Leal Hemoglobin (Bld) [Mass/Vol] 11.7 g/dL Critically low 14.0-18.[address] [facility] Comment on above: Performed By: #### C BC ####[facility] [address] [place] [phone]. Farhat Elvis IG # 0.02 10e3/ul Normal 0.00-0.03 [facility] Comment on above: Performed By: #### C BC ####[facility] Vadmuhkdag[address] [place] [phone]. Farhat Leal IG % 0.3 % Normal 0.0-0.5 [facility] Comment on above: Performed By: #### C BC ####[facility] Btfoztubzv[address] [place] [phone]. Farhat Leal LYMPH # 2.5 103/ul Normal 1.2-3.[address] [facility] Comment on above: Performed By: #### C BC ####[facility] [address] [place] [address]Dr. Farhat Leal Lymphocytes/100 WBC (Bld) 36.8 % Normal 20.5-60.0 [facility] Comment on above: Performed By: #### C BC ####[facility] Oyqvhducrt[address] [place] [phone]. Farhat Leal MANUAL DIFF REQ NO Normal [facility] Comment on above: Performed By: #### C BC ####[facility] Plxaegiirj3403 [place] [phone]. Madelynlorri Leal MCH (RBC) [Entitic mass] 30.9 pg Normal 25.9-34.0 [facility] Comment on above: Performed By: #### C BC ####[facility] Yefmpaxpyq32[address] [place] [phone]. Farhat Elvis MCHC (RBC) [Mass/Vol] 33.6 g/dL Normal 29.9-35.[address] [facility] Comment on above: Performed By: #### C BC ####[facility] Rylapyancs72[address] [place] [phone]. Farhat Leal MCV (RBC) [Entitic vol] 91.8 fL Normal 80.0-94.0 [facility] Comment on above: Performed By: #### C BC ####[facility] Eiszqktwsx2246 [place] [phone]. Farhat Leal MONO # 0.8 103/ul Normal 0.3-0.[address] [facility] Comment on above: Performed By: #### C BC ####[facility] Filmwperaq6386 [place] [phone]. Farhat Leal Monocytes/100 WBC (Bld) 11.9 % Normal 1.7-12.0 [facility] Comment on above: Performed By: #### C BC ####[facility] Vsftrikona8468 [place] [phone]. Farhat Leal NEUT # 3.1 103/ul Normal 1.4-6.[address] [facility] Comment on above: Performed By: #### C BC ####[facility] Frclolthzu8568 [place] [address]Dr. Farhat Leal Neutrophils/100 WBC (Bld) 45.2 % Normal 43.0-75.[address] [facility] Comment on above: Performed By: #### C BC ####[facility] Valarzfojw7[address] [place] [phone]. Farhat Leal Platelet mean volume (Bld) [Entitic vol] 10.5 fL Normal 9.5-13.[address] [facility] Comment on above: Performed By: #### C BC ####[facility] Ggbdezchre[address] [place] [phone]. Farhat Leal PLT 175 103/ul Normal 150-[address] [facility] Comment on above: Performed By: #### C BC ####[facility] Pmxthikvhh4462 [place] [phone]. Farhat Leal RBC 3.79 106/ul Critically low 4.70-6.[address] [facility] Comment on above: Performed By: #### C BC ####[facility] Hhyzlkhxpb[address] [place] [phone]. Farhat Leal WBC 6.8 103/ul Normal 4.0-11.[address] [facility] Comment on above: Performed By: #### C BC ####[facility] Swrvitludv[address] [place] [address]Dr. Farhat Leal MAGNESIUMon 06-12-2022 Magnesium [Mass/Vol] 1.6 mg/dL Critically low 1.8-2.4 [facility] Comment on above: Performed By: #### C MP, MG, PHOS ####[facility] Qudizfylpy18[address] [place] [address]Dr. Farhat Leal PHOSPHORUSon 06-12-2022 Phosphate [Mass/Vol] 3.8 mg/dL Normal 2.6-4.7 [facility] Comment on above: Performed By: #### C MP, MG, PHOS ####[facility] Umkldgozvp2036 [place] [address]Dr. Farhat Leal PROF 14(COMP METB)on 023 Albumin [Mass/Vol] 2.6 g/dL Critically low 3.4-5.0 [facility] Comment on above: Performed By: #### C MP, MG, PHOS ####[facility] Zjkdvthjdv8751 [place] [address]Dr. Farhat Leal Albumin/Globulin [Mass ratio] 0.8 {ratio} Normal [facility] Comment on above: Performed By: #### C MP, MG, PHOS ####[facility] Pawaztavqp8[address] [place] [address]Dr. Farhat Leal ALP [Catalytic activity/Vol] 64 U/L Normal 46-116 [facility] Comment on above: Performed By: #### C MP, MG, PHOS ####[facility] Hphqekjcjd5730 [place] [address]Dr. Farhat Leal ALT [Catalytic activity/Vol] 18 U/L Normal 16-63 [facility] Comment on above: Performed By: #### C MP, MG, PHOS ####[facility] Rwjsmoexpe7514 [place] [address]Dr. Farhat Leal Anion gap [Moles/Vol] 12.9 mmol/L Normal [facility] Comment on above: Performed By: #### C MP, MG, PHOS ####[facility] Wcelbnanhf7236 [place] [address]Dr. Farhat Leal AST [Catalytic activity/Vol] 18 U/L Normal 15-[address] [facility] Comment on above: Performed By: #### C MP, MG, PHOS ####[facility] Yngfjxzgiy0804 [place] [address]Dr. Farhat Leal Bilirubin [Mass/Vol] 0.4 mg/dL Normal 0.2-1.[address] [facility] Comment on above: Performed By: #### C MP, MG, PHOS ####[facility] Gctoxgvgfg9820 [place] [address]Dr. Farhat Leal Calcium [Mass/Vol] 8.7 mg/dL Normal 8.5-10.1 [facility] Comment on above: Performed By: #### C MP, MG, PHOS ####[facility] [address]oidxxxf[address] [place], [place] [address]Dr. Farhat Leal Chloride [Moles/Vol] 105 mmol/L Normal 98-[address] [facility] Comment on above: Performed By: #### C MP, MG, PHOS ####[facility] Lqampifafr[address] [place], [place] [address]Dr. Farhat Leal CO2 [Moles/Vol] 27.9 mmol/L Normal 21.0-32.0 [facility] Comment on above: Performed By: #### C MP, MG, PHOS ####[facility] Hipyiliyck4479 [place] [address]Dr. Farhat Leal Creatinine [Mass/Vol] 1.53 mg/dL Critically high 0.70-1.30 [facility] Comment on above: Performed By: #### C MP, MG, PHOS ####[facility] Zlfxxrvzwh3527 [place] [address]Dr. Farhat Leal EGFR-AF CITIZEN OF [place] 54 mL/min/1.73m2 Critically low >=[address] [facility] Comment on above: Performed By: #### C MP, MG, PHOS ####[facility] Rjajhjncxv7223 [place] [address]Dr. Farhat Leal EGFR-NON AF CITIZEN OF [place] 44 mL/min/1.73m2 Critically low >=60 [facility] Comment on above: Performed By: #### C MP, MG, PHOS ####[facility] Nfpgautlaa2099 [place] [address]Dr. Farhat Leal Globulin (S) [Mass/Vol] 3.4 g/dL Normal [facility] Comment on above: Performed By: #### C MP, MG, PHOS ####[facility] Inmvervxlm6914 [place] [address]Dr. Farhat Leal Glucose [Mass/Vol] 179 mg/dL Critically high 74-106 [facility] Comment on above: Performed By: #### C MP, MG, PHOS ####[facility] Llkaqyjlgt2129 [place] [address]Dr. Farhat Leal Potassium [Moles/Vol] 3.8 mmol/L Normal 3.5-5.1 [facility] Comment on above: Performed By: #### C MP, MG, PHOS ####[facility] [address] [place], [place] [address]Dr. Farhat Leal Protein [Mass/Vol] 6.0 g/dL Critically low 6.4-8.2 [facility] Comment on above: Performed By: #### C MP, MG, PHOS ####[facility] Unbrqbqame7941 [place] [address]Dr. Farhat Leal Sodium [Moles/Vol] 142 mmol/L Normal 136-145 [facility] Comment on above: Performed By: #### C MP, MG, PHOS ####[facility] Ouemipivgw3859 [place] [address]Dr. Farhat Leal Urea nitrogen [Mass/Vol] 56.0 mg/dL Critically high 7.0-18.0 [facility] Comment on above: Performed By: #### C MP, MG, PHOS ####[facility] Vzgawbvygc8785 [place] [address]Dr. Farhat Leal Urea nitrogen/Creatinine [Mass ratio] 36.6 mg/mg [facility] Comment on above: Performed By: #### C MP, MG, PHOS ####[facility] Wwkqgyzvdq1203 [place] [address]Dr. Farhat Leal FK506 (TACROLIMUS) WHOLE BLO ODon 06-08-2022 Tacrolimus (FK506), Blood 13.2 ng/mL Normal 2.0-20.0 [facility] Comment on above: Result Comment: Trou gh (immediately following transplant) 15.0 . Trough (steady state, 2 weeks or more after transplant): 3.0 - 8.0 . Performed by LC-MS/MS technology. Performed By: #### F K506T ####[facility] Gfxh[address]emcu[address] [place], [place] [address]Dr. Farhat Leal CBC AUTO DIFFon 06-05-2022 BASO # 0.1 103/ul Normal 0.0-0.1 [facility] Comment on above: Performed By: #### C BC ####[facility] [address] [place], [place] [address]Dr. Farhat Leal Basophils/100 WBC (Bld) 0.8 % Normal 0.2-2.0 [facility] Comment on above: Performed By: #### C BC ####[facility] Abtngejzfb[address] [place], [place] [address]Dr. Farhat Leal EO # 0.3 103/ul Normal 0.0-0.[address] [facility] Comment on above: Performed By: #### C BC ####[facility] Ufx[address]jcwbey[address] [place], [place] [address]Dr. Farhat Leal Eosinophils/100 WBC (Bld) 4.7 % Normal 0.9-7.[address] [facility] Comment on above: Performed By: #### C BC ####[facility] Werplwlear[address] [place], [place] [address]Dr. Farhat Leal Erythrocyte distribution width (RBC) [Ratio] 15.1 % Critically high 11.0-15.0 [facility] Comment on above: Performed By: #### C BC ####[facility] Jacduffyfj[address] [place], [place] [address]Dr. Farhat Leal Hematocrit (Bld) [Volume fraction] 35.5 % Critically low 42.0-54.0 [facility] Comment on above: Performed By: #### C BC ####[facility] Aqjtoqficx0225 [place] [address]Dr. Farhat Leal Hemoglobin (Bld) [Mass/Vol] 11.7 g/dL Critically low 14.0-18.0 [facility] Comment on above: Performed By: #### C BC ####[facility] Euystddjxh3661 [place] [address]Dr. Madelynlorri Leal IG # 0.01 10e3/ul Normal 0.00-0.03 [facility] Comment on above: Performed By: #### C BC ####[facility] Cgtotaviqj0138 [place] [address]Dr. Farhat Leal IG % 0.2 % Normal 0.0-0.5 [facility] Comment on above: Performed By: #### C BC ####[facility] Vigefxbckk[address] [place], [place] [address]Dr. Farhat Leal LYMPH # 2.1 103/ul Normal 1.2-3.8 [facility] Comment on above: Performed By: #### C BC ####[facility] R[address]wkyojkf[address] [place], [place] [address]Dr. Farhat Leal Lymphocytes/100 WBC (Bld) 34.5 % Normal 20.5-60.0 [facility] Comment on above: Performed By: #### C BC ####[facility] Ivnnafarhk5892 [place] [address]Dr. Farhat Leal MANUAL DIFF REQ NO Normal [facility] Comment on above: Performed By: #### C BC ####[facility] Raehbtjbeu7226 [place] [address]Dr. Farhat Leal MCH (RBC) [Entitic mass] 30.6 pg Normal 25.9-34.[address] [facility] Comment on above: Performed By: #### C BC ####[facility] Bawfyqkapx0450 [place] [address]Dr. Farhat Leal MCHC (RBC) [Mass/Vol] 33.0 g/dL Normal 29.9-35.[address] [facility] Comment on above: Performed By: #### C BC ####[facility] Emjmaorvbd4941 [place] [phone]. Farhat Leal MCV (RBC) [Entitic vol] 92.9 fL Normal 80.0-94.[address] [facility] Comment on above: Performed By: #### C BC ####[facility] Cywkpyklxo6141 [place] [phone]. Farhat Leal MONO # 0.7 103/ul Normal 0.3-0.8 [facility] Comment on above: Performed By: #### C BC ####[facility] Olhlwbsctn1152 [place] [address]Dr. Farhat Leal Monocytes/100 WBC (Bld) 11.4 % Normal 1.7-12.0 [facility] Comment on above: Performed By: #### C BC ####[facility] Frfystcfex[address] [place], [place] [address]Dr. Farhat Leal NEUT # 2.9 103/ul Normal 1.4-6.5 [facility] Comment on above: Performed By: #### C BC ####[facility] [address]so[address]ax[address] [place], [place] [id number]. Farhat Leal Neutrophils/100 WBC (Bld) 48.4 % Normal 43.0-75.[address] [facility] Comment on above: Performed By: #### C BC ####[facility] Njwndavsvo4773 [place] [phone]. Farhat Leal Platelet mean volume (Bld) [Entitic vol] 10.7 fL Normal 9.5-13.[address] [facility] Comment on above: Performed By: #### C BC ####[facility] Pcjwsokpoz5029 [place] [phone]. Farhat Leal PLT 185 103/ul Normal 150-[address] [facility] Comment on above: Performed By: #### C BC ####[facility] Idkjpmqogc1367 [place] [phone]. Farhat Leal RBC 3.82 106/ul Critically low 4.70-6.10 [facility] Comment on above: Performed By: #### C BC ####[facility] Zvpnwqjuso4569 [place] [address]Dr. Madelynlorri Leal WBC 6.0 103/ul Normal 4.0-11.0 [facility] Comment on above: Performed By: #### C BC ####[facility] Aajqeoqbbf8904 [place] [address]Dr. Farhat Leal MAGNESIUMon 06-05-2022 Magnesium [Mass/Vol] 1.9 mg/dL Normal 1.8-2.[address] [facility] Comment on above: Performed By: #### P HOS, MG ####[facility] Ylzexogcxi7869 [place] [address]Dr. Farhat Leal PHOSPHORUSon 06-05-2022 Phosphate [Mass/Vol] 4.4 mg/dL Normal 2.6-4.[address] [facility] Comment on above: Performed By: #### P HOS, MG ####[facility] [address]zqrdmovol[address] [place], [place] [address]Dr. Farhat Leal PROTIMEon 06-05-2022 INR Coag (PPP) [Relative time] 2.16 {INR} Normal [facility] Comment on above: Performed By: #### P T ####[facility] S[address]wihwpct[address] [place], [place] [address]Dr. Farhat Leal INR GUIDELINES SEE BELOW Normal [facility] Comment on above: Result Comment: MALINA RED INR: 2.0 - 3.0 CONDITIONS NOT LISTED BELOW 2.5 - 3.5 FOR PROSTHETIC HEART VALVE REPLACEMENT 2.5 - 3.5 RECURRENT THROMBOSIS Performed By: #### P T ####[facility] Czwvwtvdxi1035 [place] [address]Dr. Farhat Leal PT Coag (PPP) [Time] 21.9 s Critically high 9.0-11.[address] [facility] Comment on above: Performed By: #### P T ####[facility] Gzwjaqzwnj[address] [place], [place] [address]Dr. aFrhat Leal FK506 (TACROLIMUS) WHOLE BLO ODon 06-01-2022 Tacrolimus (FK506), Blood 26.4 ng/mL Invalid Interpretation Code 2.0-20.[address] [facility] Comment on above: Result Comment: Trou gh (immediately following transplant) 15.0 . Trough (steady state, 2 weeks or more after transplant): 3.0 - 8.0 . Performed by LC-MS/MS technology.Patient drug level exceeds published reference range. Evaluateclinically for signs of potential toxicity. Performed By: #### F K506T ####[facility] F[address]kdkkhah[address] [place], [place] [address]DrSkylar Leal CBC AUTO DIFFon 05-29-2022 BASO # 0.0 103/ul Normal 0.0-0.[address] [facility] Comment on above: Performed By: #### C BC ####[facility] Jvwtvavzwj[address] [place], [place] [address]DrSkylar Leal Basophils/100 WBC (Bld) 0.6 % Normal 0.2-2.0 [facility] Comment on above: Performed By: #### C BC ####[facility] Akbhpfxrot[address] [place], [place] [address]DrSkylar Leal EO # 0.3 103/ul Normal 0.0-0.[address] [facility] Comment on above: Performed By: #### C BC ####[facility] Dqvsrmelqf[address] [place], [place] [address]DrSkylar Leal Eosinophils/100 WBC (Bld) 4.7 % Normal 0.9-7.[address] [facility] Comment on above: Performed By: #### C BC ####[facility] Hsjzgkbsmo8[address] [place], [place] [address]DrSkylar Leal Erythrocyte distribution width (RBC) [Ratio] 15.3 % Critically high 11.0-15.[address] [facility] Comment on above: Performed By: #### C BC ####[facility] Ytdaauhmyl[address] [place], [place] [address]DrSkylar Leal Hematocrit (Bld) [Volume fraction] 36.6 % Critically low 42.0-54.[address] [facility] Comment on above: Performed By: #### C BC ####[facility] Fkwlkdarpy[address] [place], [place] [address]Dr. Farhat Leal Hemoglobin (Bld) [Mass/Vol] 12.3 g/dL Critically low 14.0-18.[address] [facility] Comment on above: Performed By: #### C BC ####[facility] Tbtevghpxt2595 [place] [address]Dr. Farhat Leal IG # 0.02 10e3/ul Normal 0.00-0.[address] [facility] Comment on above: Performed By: #### C BC ####[facility] Ynmtgpyghf6[address] [place], [place] [address]Dr. Farhat Leal IG % 0.3 % Normal 0.0-0.[address] [facility] Comment on above: Performed By: #### C BC ####[facility] Lwvauildgd8[address] [place], [place] [address]Dr. Farhat Leal LYMPH # 2.8 103/ul Normal 1.2-3.[address] [facility] Comment on above: Performed By: #### C BC ####[facility] Ivpldzdmhg770[address] [place], [place] [address]Dr. Farhat Leal Lymphocytes/100 WBC (Bld) 44.4 % Normal 20.5-60.[address] [facility] Comment on above: Performed By: #### C BC ####[facility] Takshjqmij326[address] [place], [place] [address]DrSkylar Leal MANUAL DIFF REQ NO Normal [facility] Comment on above: Performed By: #### C BC ####[facility] Pofjyplpwo09[address] [place], [place] [address]Dr. Farhat Leal MCH (RBC) [Entitic mass] 30.4 pg Normal 25.9-34.[address] [facility] Comment on above: Performed By: #### C BC ####[facility] Sfhcxxzoru39[address] [place], [place] [address]Dr. Farhat Leal MCHC (RBC) [Mass/Vol] 33.6 g/dL Normal 29.9-35.[address] [facility] Comment on above: Performed By: #### C BC ####[facility] Aaltflnhwn4[address] [place], [place] [address]Dr. Farhat Leal MCV (RBC) [Entitic vol] 90.4 fL Normal 80.0-94.[address] [facility] Comment on above: Performed By: #### C BC ####[facility] Lgxshyrqlv7[address] [place], [place] [address]DrSkylar Leal MONO # 0.7 103/ul Normal 0.3-0.[address] [facility] Comment on above: Performed By: #### C BC ####[facility] Gtbtugapgg7[address] [place], [place] [address]DrSkylar Farhat Leal Monocytes/100 WBC (Bld) 10.7 % Normal 1.7-12.[address] [facility] Comment on above: Performed By: #### C BC ####[facility] Wyupzzskdm458[address] [place], [place] [address]DrSkylar Farhat Leal NEUT # 2.5 103/ul Normal 1.4-6.[address] [facility] Comment on above: Performed By: #### C BC ####[facility] Nclharwzcf[address] [place], [place] [address]DrSkylar Farhat Leal Neutrophils/100 WBC (Bld) 39.3 % Critically low 43.0-75.[address] [facility] Comment on above: Performed By: #### C BC ####[facility] Zheijmfgdz15[address] [place], [place] [address]DrSkylar Farhat Leal Platelet mean volume (Bld) [Entitic vol] 10.5 fL Normal 9.5-13.[address] [facility] Comment on above: Performed By: #### C BC ####[facility] [address]jukumvdhd[address] [place], [place] [address]DrSkylar Farhat Elvis PLT 190 103/ul Normal 150-[address] [facility] Comment on above: Performed By: #### C BC ####[facility] Cjtkpmwpip6[address] [place], [place] [address]DrSkylar Joshilorri Elvis RBC 4.05 106/ul Critically low 4.70-6.[address] [facility] Comment on above: Performed By: #### C BC ####[facility] Cyjxckmhzj9[address] [place], [place] [address]Dr. Farhat Leal WBC 6.4 103/ul Normal 4.0-11.0 [facility] Comment on above: Performed By: #### C BC ####[facility] Suoejhgvov3[address] [place], [place] [address]Dr. Farhat Leal PROF 14(COMP METB)on 023 Albumin [Mass/Vol] 2.5 g/dL Critically low 3.4-5.0 [facility] Comment on above: Performed By: #### C MP ####[facility] Dmhtqkxjtw050[address] [place], [place] [address]Dr. Farhat Leal Albumin/Globulin [Mass ratio] 0.8 {ratio} Normal [facility] Comment on above: Performed By: #### C MP ####[facility] Spsjfuqzwd23[address] [place], [place] [address]Dr. Farhat Leal ALP [Catalytic activity/Vol] 61 U/L Normal 46-116 [facility] Comment on above: Performed By: #### C MP ####[facility] Pdsieawspo[address] [place], [place] [address]Dr. Farhat Leal ALT [Catalytic activity/Vol] 16 U/L Normal 16-63 [facility] Comment on above: Performed By: #### C MP ####[facility] Vopagmdhzo50[address] [place], [place] [address]Dr. Farhat Leal Anion gap [Moles/Vol] 12.3 mmol/L Normal [facility] Comment on above: Performed By: #### C MP ####[facility] Yrtbsbisjp55[address] [place], [place] [address]Dr. Farhat Lela AST [Catalytic activity/Vol] 18 U/L Normal 15-[address] [facility] Comment on above: Performed By: #### C MP ####[facility] Sc[address]igaspj[address] [place], [place] [address]Dr. Farhat Leal Bilirubin [Mass/Vol] 0.5 mg/dL Normal 0.2-1.0 [facility] Comment on above: Performed By: #### C MP ####[facility] Bsjzpnrwgh88[address] [place], [place] [address]Dr. Farhat Leal Calcium [Mass/Vol] 8.6 mg/dL Normal 8.5-10.1 [facility] Comment on above: Performed By: #### C MP ####[facility] Oqdnehyzod[address]64[address] [place], [place] [address]Dr. Farhat Leal Chloride [Moles/Vol] 105 mmol/L Normal 98-107 [facility] Comment on above: Performed By: #### C MP ####[facility] Rewrcayuue404[address] [place], [place] [address]Dr. Farhat Leal CO2 [Moles/Vol] 28.6 mmol/L Normal 21.0-32.0 [facility] Comment on above: Performed By: #### C MP ####[facility] Bbgbivhabf8[address] [place], [place] [address]Dr. Farhat Leal Creatinine [Mass/Vol] 1.47 mg/dL Critically high 0.70-1.30 [facility] Comment on above: Performed By: #### C MP ####[facility] Arszcxonji359[address] [place], [place] [address]Dr. Farhat Leal EGFR-AF [place]IZ[place] 56 mL/min/1.73m2 Critically low >=60 [facility] Comment on above: Performed By: #### C MP ####[facility] Xvttdquizg048[address] [place], [place] [address]Dr. Farhat Leal EGFR-NON AF CITIZEN OF [place] 46 mL/min/1.73m2 Critically low >=60 [facility] Comment on above: Performed By: #### C MP ####[facility] Grftuewmjc13[address] [place], [place] [address]Dr. Farhat Leal Globulin (S) [Mass/Vol] 3.3 g/dL Normal [facility] Comment on above: Performed By: #### C MP ####[facility] [address]vlzeudfav[address] [place], [place] [address]Dr. Farhat Leal Glucose [Mass/Vol] 164 mg/dL Critically high 74-106 [facility] Comment on above: Performed By: #### C MP ####[facility] Sr[address]zkjzobk[address] [place], [place] [address]Dr. Farhat Leal Potassium [Moles/Vol] 3.9 mmol/L Normal 3.5-5.1 [facility] Comment on above: Performed By: #### C MP ####[facility] Hzmcrmygan[address] [place], [place] [address]Dr. Farhat Leal Protein [Mass/Vol] 5.8 g/dL Critically low 6.4-8.[address] [facility] Comment on above: Performed By: #### C MP ####[facility] Rzwmhdanqe[address] [place], [place] [address]Dr. Farhat Leal Sodium [Moles/Vol] 142 mmol/L Normal 136-145 [facility] Comment on above: Performed By: #### C MP ####[facility] Wdpjdbezfo137[address] [place], [place] [address]Dr. Farhat Leal Urea nitrogen [Mass/Vol] 53.0 mg/dL Critically high 7.0-18.0 [facility] Comment on above: Performed By: #### C MP ####[facility] [address]ub[address] [place], [place] [address]Dr. Farhat Leal Urea nitrogen/Creatinine [Mass ratio] 36.1 mg/mg Normal [facility] Comment on above: Performed By: #### C MP ####[facility] Ihteivifov[address] [place], [place] [address]DrSkylar Leal PROTIMEon 05-29-2022 INR Coag (PPP) [Relative time] 2.41 {INR} Normal [facility] Comment on above: Performed By: #### P T ####[facility] Wpevguplka[address] [place], [place] [address]Dr. Farhat Leal INR GUIDELINES SEE BELOW Normal [facility] Comment on above: Result Comment: MALINA RED INR: 2.0 - 3.0 CONDITIONS NOT LISTED BELOW 2.5 - 3.5 FOR PROSTHETIC HEART VALVE REPLACEMENT 2.5 - 3.5 RECURRENT THROMBOSIS Performed By: #### P T ####[facility] Wntdybjvhx[address] [place], [place] [address]Dr. Farhat Leal PT Coag (PPP) [Time] 24.3 s Critically high 9.0-11.6 [facility] Comment on above: Performed By: #### P T ####[facility] Dkgiilfktq69[address] [place], [place] [address]Dr. Farhat Elvis FK506 (TACROLIMUS) WHOLE BLO ODon 05-25-2022 Tacrolimus (FK506), Blood 5.1 ng/mL Normal 2.0-20.0 [facility] Comment on above: Result Comment: Trou gh (immediately following transplant) 15.0 . Trough (steady state, 2 weeks or more after transplant): 3.0 - 8.0 . Performed by LC-MS/MS technology. Performed By: #### F K506T ####[facility] Sdxenfisgl[address] [place], [place] [address]Dr. Farhat Leal CBC AUTO DIFFon 05-22-2022 BASO # 0.0 103/ul Normal 0.0-0.1 [facility] Comment on above: Performed By: #### C BC ####[facility] Ptzyjlmgfy[address] [place], [place] [address]Dr. Farhat Leal Basophils/100 WBC (Bld) 0.5 % Normal 0.2-2.0 [facility] Comment on above: Performed By: #### C BC ####[facility] Auemblayub72[address] [place], [place] [address]Dr. Farhat Leal EO # 0.2 103/ul Normal 0.0-0.[address] [facility] Comment on above: Performed By: #### C BC ####[facility] Dgwrkutcpt87[address] [place], [place] [address]Dr. Farhat Leal Eosinophils/100 WBC (Bld) 4.0 % Normal 0.9-7.[address] [facility] Comment on above: Performed By: #### C BC ####[facility] Twujxofqnc65[address] [place], [place] [address]DrSkylar Leal Erythrocyte distribution width (RBC) [Ratio] 15.5 % Critically high 11.0-15.0 [facility] Comment on above: Performed By: #### C BC ####[facility] Gfofuarhfc79[address] [place], [place] [address]DrSkylar Leal Hematocrit (Bld) [Volume fraction] 34.1 % Critically low 42.0-54.0 [facility] Comment on above: Performed By: #### C BC ####[facility] Izbov[address]oyv25[address] [place] [address]Dr. Farhat Elvis Hemoglobin (Bld) [Mass/Vol] 11.3 g/dL Critically low 14.0-18.0 [facility] Comment on above: Performed By: #### C BC ####[facility] Hjsyhjeyvv14[address] [place] [address]Dr. Madelynlorri Elvis IG # 0.03 10e3/ul Normal 0.00-0.03 [facility] Comment on above: Performed By: #### C BC ####[facility] Yexvmiaggy1805[address] [place], [place] [address]Dr. Farhat Leal IG % 0.5 % Normal 0.0-0.5 [facility] Comment on above: Performed By: #### C BC ####[facility] Xuodgzqsse[address] [place], [place] [address]Dr. Farhat Leal LYMPH # 2.1 103/ul Normal 1.2-3.8 [facility] Comment on above: Performed By: #### C BC ####[facility] Rnskgzvscw27[address] [place], [place] [address]Dr. Farhat Leal Lymphocytes/100 WBC (Bld) 34.6 % Normal 20.5-60.0 [facility] Comment on above: Performed By: #### C BC ####[facility] Qupvzrhltw1064 [place] [address]Dr. Farhat Leal MANUAL DIFF REQ NO Normal [facility] Comment on above: Performed By: #### C BC ####[facility] Ynobhkmxup35[address] [place] [phone]. Farhat Leal MCH (RBC) [Entitic mass] 30.3 pg Normal 25.9-34.[address] [facility] Comment on above: Performed By: #### C BC ####[facility] Alpqhhedfv37[address] [place] [address]Dr. Farhat Leal MCHC (RBC) [Mass/Vol] 33.1 g/dL Normal 29.9-35.2 [facility] Comment on above: Performed By: #### C BC ####[facility] Viyqybpcpl[address]1 [place] [phone]. Farhat Leal MCV (RBC) [Entitic vol] 91.4 fL Normal 80.0-94.[address] [facility] Comment on above: Performed By: #### C BC ####[facility] Kaijeffuvt[address] [place] [phone]. Farhat Leal MONO # 0.7 103/ul Normal 0.3-0.8 [facility] Comment on above: Performed By: #### C BC ####[facility] Bevfrpaabj2367 [place] [address]Dr. Farhat Leal Monocytes/100 WBC (Bld) 11.6 % Normal 1.7-12.[address] [facility] Comment on above: Performed By: #### C BC ####[facility] Tozocfejny[address] [place], [place] [address]Dr. Farhat Leal NEUT # 2.9 103/ul Normal 1.4-6.[address] [facility] Comment on above: Performed By: #### C BC ####[facility] Irboaexc[address] [place], [place] [address]Dr. Farhat Leal Neutrophils/100 WBC (Bld) 48.8 % Normal 43.0-75.[address] [facility] Comment on above: Performed By: #### C BC ####[facility] Kduyxfhyrc[address] [place], [place] [address]Dr. Farhat Leal Platelet mean volume (Bld) [Entitic vol] 10.9 fL Normal 9.5-13.[address] [facility] Comment on above: Performed By: #### C BC ####[facility] Jarifpoeiv[address] [place], [place] [address]Dr. Farhat Leal PLT 186 103/ul Normal 150-[address] [facility] Comment on above: Performed By: #### C BC ####[facility] Yqlwnkpprb9808 [place] [phone]. Madelynlorri Elvis RBC 3.73 106/ul Critically low 4.70-6.[address] [facility] Comment on above: Performed By: #### C BC ####[facility] Absttfkdzx0779 [place] [address]Dr. Farhat Leal WBC 6.0 103/ul Normal 4.0-11.0 [facility] Comment on above: Performed By: #### C BC ####[facility] Axbiwynydb4692 [place] [address]Dr. Farhat Leal PROF 14(COMP METB)on 023 Albumin [Mass/Vol] 2.7 g/dL Critically low 3.4-5.[address] [facility] Comment on above: Performed By: #### C MP ####[facility] Yshwxltzqs9647 [place] [address]Dr. Farhat Leal Albumin/Globulin [Mass ratio] 0.8 {ratio} Normal [facility] Comment on above: Performed By: #### C MP ####[facility] Sesxharzzq0144 [place] [address]Dr. Farhat Leal ALP [Catalytic activity/Vol] 60 U/L Normal 46-116 [facility] Comment on above: Performed By: #### C MP ####[facility] Phxiwcqgaa6[address] [place], [place] [address]Dr. Farhat Leal ALT [Catalytic activity/Vol] 17 U/L Normal 16-63 [facility] Comment on above: Performed By: #### C MP ####[facility] Tdledopztl8275 [place] [address]Dr. Farhat Leal Anion gap [Moles/Vol] 9.6 mmol/L Normal [facility] Comment on above: Performed By: #### C MP ####[facility] Qqwuiyaetn2510 [place] [address]Dr. Farhat Leal AST [Catalytic activity/Vol] 14 U/L Critically low 15-37 [facility] Comment on above: Performed By: #### C MP ####[facility] Ymhsanapyy2546 [place] [address]Dr. Farhat Leal Bilirubin [Mass/Vol] 0.5 mg/dL Normal 0.2-1.0 [facility] Comment on above: Performed By: #### C MP ####[facility] Rzptjyssck5119 [place] [phone]. Farhat Leal Calcium [Mass/Vol] 8.4 mg/dL Critically low 8.5-10.[address] [facility] Comment on above: Performed By: #### C MP ####[facility] Jxeapowsjd9414 [place] [phone]. Farhat Leal Chloride [Moles/Vol] 104 mmol/L Normal 98-107 [facility] Comment on above: Performed By: #### C MP ####[facility] Jdllpnviyi6292 [place] [address]Dr. Farhat Leal CO2 [Moles/Vol] 27.2 mmol/L Normal 21.0-32.0 [facility] Comment on above: Performed By: #### C MP ####[facility] Yp[address]awmybp[address] [place], [place] [address]Dr. Farhat Leal Creatinine [Mass/Vol] 1.24 mg/dL Normal 0.70-1.30 [facility] Comment on above: Performed By: #### C MP ####[facility] Okfkflaufr[address] [place], [place] [address]Dr. Farhat Leal EGFR-AF CITIZEN OF [place] >60 Normal >=60 [facility] Comment on above: Performed By: #### C MP ####[facility] Xoqommmmmf7117 [place] [phone]. Farhat Leal EGFR-NON AF CITIZEN OF [place] 57 mL/min/1.73m2 Critically low >=60 [facility] Comment on above: Performed By: #### C MP ####[facility] Dbsludtrwa1356 [place] [phone]. Farhat Leal Globulin (S) [Mass/Vol] 3.3 g/dL Normal [facility] Comment on above: Performed By: #### C MP ####[facility] Gdonflhjcu5025 [place] [phone]. Farhat Elvis Glucose [Mass/Vol] 275 mg/dL Critically high 74-106 [facility] Comment on above: Performed By: #### C MP ####[facility] Rgtgyuqdht1121 [place] [address]Dr. Farhat Leal Potassium [Moles/Vol] 3.8 mmol/L Normal 3.5-5.1 [facility] Comment on above: Performed By: #### C MP ####[facility] Hncwhqjqgk8152 [place] [address]Dr. Farhat Leal Protein [Mass/Vol] 6.0 g/dL Critically low 6.4-8.2 [facility] Comment on above: Performed By: #### C MP ####[facility] [address]ixhqnzqls[address] [place], [place] [address]Dr. Farhat Leal Sodium [Moles/Vol] 137 mmol/L Normal 136-145 [facility] Comment on above: Performed By: #### C MP ####[facility] Dlebcxwinm48[address] [place], [place] [address]Dr. Farhat Leal Urea nitrogen [Mass/Vol] 54.0 mg/dL Critically high 7.0-18.0 [facility] Comment on above: Performed By: #### C MP ####[facility] Oujagnvhjm[address] [place], [place] [address]Dr. Farhat Leal Urea nitrogen/Creatinine [Mass ratio] 43.5 mg/mg Normal [facility] Comment on above: Performed By: #### C MP ####[facility] Zmqzjysfpk[address] [place], [place] [address]Dr. Farhat Leal PROTIMEon 05-22-2022 INR Coag (PPP) [Relative time] 2.27 {INR} Normal [facility] Comment on above: Performed By: #### P T ####[facility] Uwoaemwpdr[address] [place], [place] [address]Dr. Farhat Leal INR GUIDELINES SEE BELOW Normal [facility] Comment on above: Result Comment: MALINA RED INR: 2.0 - 3.0 CONDITIONS NOT LISTED BELOW 2.5 - 3.5 FOR PROSTHETIC HEART VALVE REPLACEMENT 2.5 - 3.5 RECURRENT THROMBOSIS Performed By: #### P T ####[facility] Swxxpnluhk[address] [place], [place] [address]Dr. Farhat Leal PT Coag (PPP) [Time] 23.0 s Critically high 9.0-11.[address] [facility] Comment on above: Performed By: #### P T ####[facility] Zomahpxbqk70[address] [place], [place] [address]Dr. Farhat Leal FK506 (TACROLIMUS) WHOLE BLO ODon 05-19-2022 Tacrolimus (FK506), Blood 7.8 ng/mL Normal 2.0-20.[address] [facility] Comment on above: Result Comment: Trou gh (immediately following transplant) 15.0 . Trough (steady state, 2 weeks or more after transplant): 3.0 - 8.0 . Performed by LC-MS/MS technology. Performed By: #### F K506T ####[facility] Zcowijxmuo8[address] [place], [place] [address]Dr. Farhat Leal CBC AUTO DIFFon 05-15-2022 BASO # 0.0 103/ul Normal 0.0-0.[address] [facility] Comment on above: Performed By: #### C BC ####[facility] Xvpgddprar[address] [place], [place] [address]Dr. Farhat Leal Basophils/100 WBC (Bld) 0.4 % Normal 0.2-2.[address] [facility] Comment on above: Performed By: #### C BC ####[facility] Nvxeiglipm[address] [place], [place] [address]Dr. Farhat Leal EO # 0.2 103/ul Normal 0.0-0.[address] [facility] Comment on above: Performed By: #### C BC ####[facility] Lsqgydhjfp07[address] [place], [place] [address]Dr. Farhat Leal Eosinophils/100 WBC (Bld) 3.0 % Normal 0.9-7.[address] [facility] Comment on above: Performed By: #### C BC ####[facility] Ewwrjlkdqi400[address] [place], [place] [address]Dr. Farhat Leal Erythrocyte distribution width (RBC) [Ratio] 15.7 % Critically high 11.0-15.[address] [facility] Comment on above: Performed By: #### C BC ####[facility] Sfsbfqpbnv5120 [place] [address]Dr. Farhat Leal Hematocrit (Bld) [Volume fraction] 36.8 % Critically low 42.0-54.0 [facility] Comment on above: Performed By: #### C BC ####[facility] Gbqbzmrvvi2484 [place] [address]Dr. Farhat Leal Hemoglobin (Bld) [Mass/Vol] 12.4 g/dL Critically low 14.0-18.[address] [facility] Comment on above: Performed By: #### C BC ####[facility] Nzkbseskkj[address] [place], [place] [address]Dr. Farhat Leal IG # 0.01 10e3/ul Normal 0.00-0.[address] [facility] Comment on above: Performed By: #### C BC ####[facility] Rqrsjkgskp[address] [place], [place] [address]Dr. Farhat Leal IG % 0.1 % Normal 0.0-0.5 [facility] Comment on above: Performed By: #### C BC ####[facility] Leitgvkfbz[address] [place], [place] [address]Dr. Farhat Leal LYMPH # 2.4 103/ul Normal 1.2-3.[address] [facility] Comment on above: Performed By: #### C BC ####[facility] Yeqwqlkiwm[address] [place], [place] [address]Dr. Farhat Leal Lymphocytes/100 WBC (Bld) 35.6 % Normal 20.5-60.[address] [facility] Comment on above: Performed By: #### C BC ####[facility] Klshcmjyoh[address] [place], [place] [address]Dr. Farhat Leal MANUAL DIFF REQ NO Normal [facility] Comment on above: Performed By: #### C BC ####[facility] Kezlutttis[address] [place], [place] [address]Dr. Farhat Leal MCH (RBC) [Entitic mass] 30.1 pg Normal 25.9-34.[address] [facility] Comment on above: Performed By: #### C BC ####[facility] Lhhfafwfkt8943 [place] [phone]. Farhat Leal MCHC (RBC) [Mass/Vol] 33.7 g/dL Normal 29.9-35.[address] [facility] Comment on above: Performed By: #### C BC ####[facility] Awmejmpdbu3508 [place] [phone]. Farhat Leal MCV (RBC) [Entitic vol] 89.3 fL Normal 80.0-94.[address] [facility] Comment on above: Performed By: #### C BC ####[facility] Yohnzrdenk6334 [place] [phone]. Farhat Leal MONO # 0.7 103/ul Normal 0.3-0.[address] [facility] Comment on above: Performed By: #### C BC ####[facility] Axkdnqvzia3310 [place] [phone]. Madelynlorri Leal Monocytes/100 WBC (Bld) 10.8 % Normal 1.7-12.[address] [facility] Comment on above: Performed By: #### C BC ####[facility] Frxbuwdblf8620 [place] [phone]. Farhat Leal NEUT # 3.4 103/ul Normal 1.4-6.[address] [facility] Comment on above: Performed By: #### C BC ####[facility] Kyopjytcqg4124 [place] [address]Dr. Farhat Elvis Neutrophils/100 WBC (Bld) 50.1 % Normal 43.0-75.[address] [facility] Comment on above: Performed By: #### C BC ####[facility] Qatjyhwgnl4686 [place] [phone]. Farhat Leal Platelet mean volume (Bld) [Entitic vol] 10.2 fL Normal 9.5-13.[address] [facility] Comment on above: Performed By: #### C BC ####[facility] Setakrumuo5470 [place] [phone]. Farhat Elvis PLT 190 103/ul Normal 150-[address] [facility] Comment on above: Performed By: #### C BC ####[facility] Ymaanyztpv6665 [place] [phone]. Farhat Leal RBC 4.12 106/ul Critically low 4.70-6.10 [facility] Comment on above: Performed By: #### C BC ####[facility] Qrbdkwwllm1511 [place] [address]Dr. Farhat Leal WBC 6.8 103/ul Normal 4.0-11.0 [facility] Comment on above: Performed By: #### C BC ####[facility] Armcvqqbmo0418 [place] [address]Dr. Farhat Leal PROF 14(COMP METB)on 023 Albumin [Mass/Vol] 2.8 g/dL Critically low 3.4-5.0 [facility] Comment on above: Performed By: #### C MP ####[facility] Iycimdtdhm[address] [place], [place] [address]Dr. Farhat Leal Albumin/Globulin [Mass ratio] 0.9 {ratio} Normal [facility] Comment on above: Performed By: #### C MP ####[facility] Chguaymjhm[address] [place], [place] [address]Dr. Farhat Leal ALP [Catalytic activity/Vol] 66 U/L Normal 46-116 [facility] Comment on above: Performed By: #### C MP ####[facility] Dtrjxtamog[address] [place], [place] [address]Dr. Farhat Leal ALT [Catalytic activity/Vol] 15 U/L Critically low 16-63 [facility] Comment on above: Performed By: #### C MP ####[facility] Pwyddlgzis69[address] [place], [place] [address]Dr. Farhat Leal Anion gap [Moles/Vol] 11.1 mmol/L Normal [facility] Comment on above: Performed By: #### C MP ####[facility] Xvtfcalypo68[address] [place], [place] [address]Dr. Farhat Leal AST [Catalytic activity/Vol] 14 U/L Critically low 15-37 [facility] Comment on above: Performed By: #### C MP ####[facility] Ktitnpftqm3515 [place] [address]Dr. Farhat Leal Bilirubin [Mass/Vol] 0.8 mg/dL Normal 0.2-1.[address] [facility] Comment on above: Performed By: #### C MP ####[facility] Rzqpehhbup6815 [place] [phone]. Farhat Leal Calcium [Mass/Vol] 8.9 mg/dL Normal 8.5-10.1 [facility] Comment on above: Performed By: #### C MP ####[facility] Mtzhisskhf7525 [place] [phone]. Farhat Leal Chloride [Moles/Vol] 101 mmol/L Normal 98-[address] [facility] Comment on above: Performed By: #### C MP ####[facility] Yxgrwziwfv9554 [place] [address]Dr. Farhat Leal CO2 [Moles/Vol] 28.2 mmol/L Normal 21.0-32.0 [facility] Comment on above: Performed By: #### C MP ####[facility] Kwobmwwqgc[address] [place], [place] [address]Dr. Farhat Leal Creatinine [Mass/Vol] 1.23 mg/dL Normal 0.70-1.[address] [facility] Comment on above: Performed By: #### C MP ####[facility] Warhqqbjgz3406 [place] [address]Dr. Farhat Leal EGFR-AF CITIZEN [place] >60 Normal >=60 [facility] Comment on above: Performed By: #### C MP ####[facility] Mwmrutnntn1154 [place] [address]Dr. Farhat Leal EGFR-NON AF CITIZEN OF [place] 57 mL/min/1.73m2 Critically low >=[address] [facility] Comment on above: Performed By: #### C MP ####[facility] [address]vbrenmmt[address] [place], [place] [address]Dr. Farhat Leal Globulin (S) [Mass/Vol] 3.2 g/dL Normal [facility] Comment on above: Performed By: #### C MP ####[facility] I[address]cs[address]duzeo[address] [place], [place] [address]Dr. Farhat Leal Glucose [Mass/Vol] 333 mg/dL Critically high 74-106 [facility] Comment on above: Performed By: #### C MP ####[facility] Jtwqhzgzwb5293 [place] [address]Dr. Farhat Leal Potassium [Moles/Vol] 4.3 mmol/L Normal 3.5-5.1 [facility] Comment on above: Performed By: #### C MP ####[facility] Ocvdwberzm4226 [place] [address]Dr. Farhat Leal Protein [Mass/Vol] 6.0 g/dL Critically low 6.4-8.2 [facility] Comment on above: Performed By: #### C MP ####[facility] Vqgzzlpzjh884[address] [place], [place] [address]Dr. Farhat Leal Sodium [Moles/Vol] 136 mmol/L Normal 136-145 [facility] Comment on above: Performed By: #### C MP ####[facility] Zfytidjldx2[address] [place], [place] [address]Dr. Farhat Elvis Urea nitrogen [Mass/Vol] 58.0 mg/dL Critically high 7.0-18.0 [facility] Comment on above: Performed By: #### C MP ####[facility] Bzssrxkwfe[address] [place], [place] [address]Dr. Farhat Elvis Urea nitrogen/Creatinine [Mass ratio] 47.2 mg/mg Normal [facility] Comment on above: Performed By: #### C MP ####[facility] Ivyjrnvcxx9[address] [place], [place] [address]Dr. Farhat Leal PROTIMEon 05-13-2022 INR Coag (PPP) [Relative time] 3.51 {INR} Normal [facility] Comment on above: Performed By: #### P T ####[facility] [address]tglpxtrgo230[address] [place], [place] [address]Dr. Farhat Leal INR GUIDELINES SEE BELOW Normal [facility] Comment on above: Result Comment: MALINA RED INR: 2.0 - 3.0 CONDITIONS NOT LISTED BELOW 2.5 - 3.5 FOR PROSTHETIC HEART VALVE REPLACEMENT 2.5 - 3.5 RECURRENT THROMBOSIS Performed By: #### P T ####[facility] Zpqbepbyhc[address] [place], [place] [address]Dr. Farhat Leal PT Coag (PPP) [Time] 34.7 s Critically high 9.0-11.6 [facility] Comment on above: Performed By: #### P T ####[facility] Yuvawkread[address] [place], [place] [address]DrSkylar Leal FK506 (TACROLIMUS) WHOLE BLO ODon 05-11-2022 Tacrolimus (FK506), Blood 14.4 ng/mL Normal 2.0-20.[address] [facility] Comment on above: Result Comment: Trou gh (immediately following transplant) 15.0 . Trough (steady state, 2 weeks or more after transplant): 3.0 - 8.0 . Performed by LC-MS/MS technology. Performed By: #### F K506T ####[facility] [address]adyzajjo[address] [place], [place] [address]DrSkylar Leal CBC AUTO DIFFon 05-08-2022 BASO # 0.0 103/ul Normal 0.0-0.[address] [facility] Comment on above: Performed By: #### C BC ####[facility] Yeyaqnbwgz850[address] [place], [place] [address]Dr. Farhat Leal Basophils/100 WBC (Bld) 0.5 % Normal 0.2-2.[address] [facility] Comment on above: Performed By: #### C BC ####[facility] Vficqlkmjx56[address] [place], [place] [address]Dr. Farhat Leal EO # 0.2 103/ul Normal 0.0-0.[address] [facility] Comment on above: Performed By: #### C BC ####[facility] [address]lterrjwst20[address] [place], [place] [address]DrSkylar Leal Eosinophils/100 WBC (Bld) 2.9 % Normal 0.9-7.[address] [facility] Comment on above: Performed By: #### C BC ####[facility] Gdpgrbkuxg[address] [place], [place] [address]DrSkylar Leal Erythrocyte distribution width (RBC) [Ratio] 16.0 % Critically high 11.0-15.0 [facility] Comment on above: Performed By: #### C BC ####[facility] Jmrmgiizke4699 [place] [address]Dr. Farhat Leal Hematocrit (Bld) [Volume fraction] 35.7 % Critically low 42.0-54.0 [facility] Comment on above: Performed By: #### C BC ####[facility] Ndkguellvs[address] [place], [place] [address]Dr. Farhat Leal Hemoglobin (Bld) [Mass/Vol] 11.9 g/dL Critically low 14.0-18.0 [facility] Comment on above: Performed By: #### C BC ####[facility] Zechuwysxx[address] [place], [place] [address]Dr. Farhat Leal IG # 0.03 10e3/ul Normal 0.00-0.03 [facility] Comment on above: Performed By: #### C BC ####[facility] Mxjahylvza[address] [place], [place] [address]Dr. Madelynlorri Leal IG % 0.5 % Normal 0.0-0.5 [facility] Comment on above: Performed By: #### C BC ####[facility] [address]ujbaukf[address] [place], [place] [address]DrSkylar Farhat Leal LYMPH # 2.4 103/ul Normal 1.2-3.[address] [facility] Comment on above: Performed By: #### C BC ####[facility] Feieimcvpj[address] [place], [place] [address]DrSkylar Madelynlorri Leal Lymphocytes/100 WBC (Bld) 37.8 % Normal 20.5-60.[address] [facility] Comment on above: Performed By: #### C BC ####[facility] Smxiknzibr[address] [place], [place] [address]DrSkylar Leal MANUAL DIFF REQ NO Normal [facility] Comment on above: Performed By: #### C BC ####[facility] Prnvvgzmxf[address] [place], [place] [address]DrSkylar Leal MCH (RBC) [Entitic mass] 30.4 pg Normal 25.9-34.0 [facility] Comment on above: Performed By: #### C BC ####[facility] [address]vbmfzdpv00[address] [place] [address]DrSkylar Leal MCHC (RBC) [Mass/Vol] 33.3 g/dL Normal 29.9-35.[address] [facility] Comment on above: Performed By: #### C BC ####[facility] Jcoiseuirl[address] [place], [place] [address]DrSkylar Leal MCV (RBC) [Entitic vol] 91.1 fL Normal 80.0-94.[address] [facility] Comment on above: Performed By: #### C BC ####[facility] Bvaxotttcb6[address] [place], [place] [address]DrSkylar Leal MONO # 0.7 103/ul Normal 0.3-0.[address] [facility] Comment on above: Performed By: #### C BC ####[facility] Ycpxzahuov54[address] [place], [place] [address]DrSkylar Leal Monocytes/100 WBC (Bld) 11.1 % Normal 1.7-12.[address] [facility] Comment on above: Performed By: #### C BC ####[facility] Dgfhncmlgt45[address] [place], [place] [address]DrSkylar Leal NEUT # 2.9 103/ul Normal 1.4-6.[address] [facility] Comment on above: Performed By: #### C BC ####[facility] Ynkkrompiv2[address] [place], [place] [address]DrSkylar Leal Neutrophils/100 WBC (Bld) 47.2 % Normal 43.0-75.[address] [facility] Comment on above: Performed By: #### C BC ####[facility] Ulbjjlaitp8[address] [place], [place] [address]DrSkylar Leal Platelet mean volume (Bld) [Entitic vol] 11.0 fL Normal 9.5-13.[address] [facility] Comment on above: Performed By: #### C BC ####[facility] Nqpucoirjn5[address] [place], [place] [address]DrSkylar Leal PLT 191 103/ul Normal 150-[address] [facility] Comment on above: Performed By: #### C BC ####[facility] Gayfgkkxgg8[address] [place] [address]Dr. Farhat Leal RBC 3.92 106/ul Critically low 4.70-6.[address] [facility] Comment on above: Performed By: #### C BC ####[facility] Cqfwqbalkn4785 [place] [address]Dr. Farhat Leal WBC 6.2 103/ul Normal 4.0-11.[address] [facility] Comment on above: Performed By: #### C BC ####[facility] Sgxnlduqxz6275 [place] [address]Dr. Farhat Leal MAGNESIUMon 05-08-2022 Magnesium [Mass/Vol] 1.9 mg/dL Normal 1.8-2.[address] [facility] Comment on above: Performed By: #### P HOS, MG ####[facility] Wwnnseoypg19[address] [place] [address]Dr. Farhat Leal PHOSPHORUSon 05-08-2022 Phosphate [Mass/Vol] 4.5 mg/dL Normal 2.6-4.[address] [facility] Comment on above: Performed By: #### P HOS, MG ####[facility] Olfigkltkb0361 [place] [address]Dr. Farhat Leal PROF 14(COMP METB)on 023 Albumin [Mass/Vol] 2.9 g/dL Critically low 3.4-5.0 [facility] Comment on above: Performed By: #### C MP ####[facility] Ltajiwusoi29[address] [place] [address]Dr. Farhat Leal Albumin/Globulin [Mass ratio] 0.9 {ratio} Normal [facility] Comment on above: Performed By: #### C MP ####[facility] Jbrjzohygy2402 [place] [address]Dr. Farhat Leal ALP [Catalytic activity/Vol] 70 U/L Normal 46-[address] [facility] Comment on above: Performed By: #### C MP ####[facility] Vmlroshkxt3406 [place] [phone]. Farhat Leal ALT [Catalytic activity/Vol] 13 U/L Critically low 16-[address] [facility] Comment on above: Performed By: #### C MP ####[facility] Nwbqxlugmb7736 [place] [phone]. Farhat Leal Anion gap [Moles/Vol] 14.6 mmol/L Normal [facility] Comment on above: Performed By: #### C MP ####[facility] Cjlrjxaiyj9838 [place] [phone]. Farhat Leal AST [Catalytic activity/Vol] 17 U/L Normal 15-37 [facility] Comment on above: Performed By: #### C MP ####[facility] Bkbkhypfrc3077 [place] [address]Dr. Farhat Leal Bilirubin [Mass/Vol] 0.8 mg/dL Normal 0.2-1.[address] [facility] Comment on above: Performed By: #### C MP ####[facility] Wqpsygpqdi9[address] [place], [place] [address]Dr. Farhat Leal Calcium [Mass/Vol] 8.9 mg/dL Normal 8.5-10.1 [facility] Comment on above: Performed By: #### C MP ####[facility] Ylprvodphu01[address] [place], [place] [address]Dr. Farhat Leal Chloride [Moles/Vol] 102 mmol/L Normal 98-[address] [facility] Comment on above: Performed By: #### C MP ####[facility] Vhibkpmgsb3708 [place] [address]Dr. Farhat Leal CO2 [Moles/Vol] 22.9 mmol/L Normal 21.0-32.0 [facility] Comment on above: Performed By: #### C MP ####[facility] Mqllqwuzhz6160 [place] [address]Dr. Farhat Leal Creatinine [Mass/Vol] 1.20 mg/dL Normal 0.70-1.30 [facility] Comment on above: Performed By: #### C MP ####[facility] Gvuqihjccv7841 [place] [phone]. Farhat Leal EGFR-AF CITIZEN OF [place] >60 Normal >=60 [facility] Comment on above: Performed By: #### C MP ####[facility] Vhpsxsorzr7713 [place] [address]Dr. Farhat Leal EGFR-NON AF CITIZEN OF THE [place] 59 mL/min/1.73m2 Critically low >=60 [facility] Comment on above: Performed By: #### C MP ####[facility] Jpjdwohgwn5261 [place] [address]Dr. Farhat Leal Globulin (S) [Mass/Vol] 3.1 g/dL Normal [facility] Comment on above: Performed By: #### C MP ####[facility] Yvpjgluqkz[address] [place], [place] [address]Dr. Farhat Leal Glucose [Mass/Vol] 447 mg/dL Critically high 74-106 [facility] Comment on above: Performed By: #### C MP ####[facility] Piwinfinyo8[address] [place], [place] [address]Dr. Farhat Elvis Potassium [Moles/Vol] 4.5 mmol/L Normal 3.5-5.1 [facility] Comment on above: Performed By: #### C MP ####[facility] Xsqvhzjmou639[address] [place], [place] [address]Dr. Farhat Leal Protein [Mass/Vol] 6.0 g/dL Critically low 6.4-8.2 [facility] Comment on above: Performed By: #### C MP ####[facility] Ncldbicnie233[address] [place], [place] [address]Dr. Farhat Leal Sodium [Moles/Vol] 135 mmol/L Critically low 136-145 [facility] Comment on above: Performed By: #### C MP ####[facility] Jdoequpdut6127[address] [place], [place] [address]Dr. Farhat Leal Urea nitrogen [Mass/Vol] 52.0 mg/dL Critically high 7.0-18.0 [facility] Comment on above: Performed By: #### C MP ####[facility] Hfyjjutggt309[address] [place], [place] [address]Dr. Farhat Leal Urea nitrogen/Creatinine [Mass ratio] 43.3 mg/mg Normal [facility] Comment on above: Performed By: #### C MP ####[facility] Bmxdldlcly[address] [place], [place] [address]DrSkylar Leal PROTIMEon 05-06-2022 INR Coag (PPP) [Relative time] 2.25 {INR} Normal [facility] Comment on above: Performed By: #### P T ####[facility] Irailqvstb9650[address] [place], [place] [address]DrSkylar Leal INR GUIDELINES SEE BELOW Normal [facility] Comment on above: Result Comment: MALINA RED INR: 2.0 - 3.0 CONDITIONS NOT LISTED BELOW 2.5 - 3.5 FOR PROSTHETIC HEART VALVE REPLACEMENT 2.5 - 3.5 RECURRENT THROMBOSIS Performed By: #### P T ####[facility] Tnlftrsujd7313[address] [place], [place] [address]Dr. Farhat Leal PT Coag (PPP) [Time] 22.8 s Critically high 9.0-11.6 [facility] Comment on above: Performed By: #### P T ####[facility] Kmfaoyalgb5750[address] [place], [place] [address]DrSkylar Leal FK506 (TACROLIMUS) WHOLE BLO ODon 05-04-2022 Tacrolimus (FK506), Blood 10.4 ng/mL Normal 2.0-20.0 [facility] Comment on above: Result Comment: Trou gh (immediately following transplant) 15.0 . Trough (steady state, 2 weeks or more after transplant): 3.0 - 8.0 . Performed by LC-MS/MS technology. Performed By: #### F K506T ####[facility] Nvaaubslhr[address] [place], [place] [address]DrSkylar Leal CBC AUTO DIFFon 05-01-2022 BASO # 0.1 103/ul Normal 0.0-0.1 [facility] Comment on above: Performed By: #### C BC ####[facility] Svrkftkosx380[address] [place], [place] [address]DrSkylar Leal Basophils/100 WBC (Bld) 0.7 % Normal 0.2-2.[address] [facility] Comment on above: Performed By: #### C BC ####[facility] Zmhuuuxvvq08[address] [place], [place] [address]DrSkylar Leal EO # 0.2 103/ul Normal 0.0-0.[address] [facility] Comment on above: Performed By: #### C BC ####[facility] Ksjklmfdcg88[address] [place], [place] [address]DrSkylar Leal Eosinophils/100 WBC (Bld) 3.2 % Normal 0.9-7.[address] [facility] Comment on above: Performed By: #### C BC ####[facility] Xucgxtsojv868[address] [place], [place] [address]Dr. Farhat Leal Erythrocyte distribution width (RBC) [Ratio] 16.4 % Critically high 11.0-15.0 [facility] Comment on above: Performed By: #### C BC ####[facility] Kukbjphatz911[address] [place], [place] [address]Dr. Farhat Leal Hematocrit (Bld) [Volume fraction] 35.1 % Critically low 42.0-54.0 [facility] Comment on above: Performed By: #### C BC ####[facility] Uyphrsaqku589[address] [place], [place] [address]DrSkylar Leal Hemoglobin (Bld) [Mass/Vol] 11.6 g/dL Critically low 14.0-18.[address] [facility] Comment on above: Performed By: #### C BC ####[facility] Cbqphrajxb5[address] [place], [place] [address]DrSkylar Leal IG # 0.03 10e3/ul Normal 0.00-0.[address] [facility] Comment on above: Performed By: #### C BC ####[facility] Vveyzouanm0720[address] [place], [place] [address]DrSkylar Leal IG % 0.4 % Normal 0.0-0.[address] [facility] Comment on above: Performed By: #### C BC ####[facility] Cuasorlnhq446[address] [place], [place] [address]DrSkylar Leal LYMPH # 2.4 103/ul Normal 1.2-3.[address] [facility] Comment on above: Performed By: #### C BC ####[facility] Fnnipfsmls0952 [place] [phone] Leal Lymphocytes/100 WBC (Bld) 35.1 % Normal 20.5-60.[address] [facility] Comment on above: Performed By: #### C BC ####[facility] Snjiqocfov247[address] [place], [place] [address]DrSkylar Leal MANUAL DIFF REQ NO Normal [facility] Comment on above: Performed By: #### C BC ####[facility] Pgifzqjtkm7811 [place] [address]DrSkylar Leal MCH (RBC) [Entitic mass] 29.4 pg Normal 25.9-34.[address] [facility] Comment on above: Performed By: #### C BC ####[facility] Ezgdirlxki16264[address] [place], [place] [address]DrSkylar Leal MCHC (RBC) [Mass/Vol] 33.0 g/dL Normal 29.9-35.[address] [facility] Comment on above: Performed By: #### C BC ####[facility] Wdmixlqlcy607[address] [place], [place] [address]DrSkylar Leal MCV (RBC) [Entitic vol] 88.9 fL Normal 80.0-94.[address] [facility] Comment on above: Performed By: #### C BC ####[facility] Vishneblam38[address] [place], [place] [address]DrSkylar Leal MONO # 0.7 103/ul Normal 0.3-0.[address] [facility] Comment on above: Performed By: #### C BC ####[facility] Ogxvxxpnfg6480[address] [place], [place] [address]DrSkylar Leal Monocytes/100 WBC (Bld) 9.6 % Normal 1.7-12.[address] [facility] Comment on above: Performed By: #### C BC ####[facility] Gzqxrsfxff900[address] [place], [place] [address]DrSkylar Leal NEUT # 3.5 103/ul Normal 1.4-6.5 [facility] Comment on above: Performed By: #### C BC ####[facility] Cqdqjalwnw7028 [place] [address]DrSkylar Leal Neutrophils/100 WBC (Bld) 51.0 % Normal 43.0-75.0 [facility] Comment on above: Performed By: #### C BC ####[facility] Jkqxabmcxr4413 [place] [address]Dr. Farhat Leal Platelet mean volume (Bld) [Entitic vol] 10.3 fL Normal 9.5-13.5 [facility] Comment on above: Performed By: #### C BC ####[facility] Nfqbuvjktt126[address] [place], [place] [address]Dr. Farhat Leal PLT 184 103/ul Normal 150-450 [facility] Comment on above: Performed By: #### C BC ####[facility] Ysfzleuumo7901[address] [place], [place] [address]Dr. Farhat Leal RBC 3.95 106/ul Critically low 4.70-6.10 [facility] Comment on above: Performed By: #### C BC ####[facility] Hmtcflfxwy8[address] [place], [place] [address]DrSkylar Leal WBC 7.0 103/ul Normal 4.0-11.0 [facility] Comment on above: Performed By: #### C BC ####[facility] Bkugujoofu7[address] [place], [place] [address]DrSkylar Leal PROF 14(COMP METB)on 023 Albumin [Mass/Vol] 2.6 g/dL Critically low 3.4-5.0 [facility] Comment on above: Performed By: #### C MP ####[facility] Lrtapcuxun[address] [place], [place] [address]DrSkylar Leal Albumin/Globulin [Mass ratio] 0.9 {ratio} Normal [facility] Comment on above: Performed By: #### C MP ####[facility] Gbinkncoth155[address] [place], [place] [address]DrSkylar Leal ALP [Catalytic activity/Vol] 53 U/L Normal 46-116 [facility] Comment on above: Performed By: #### C MP ####[facility] Pbmzuvlpzt6646 [place] [address]Dr. Farhat Elvis ALT [Catalytic activity/Vol] 17 U/L Normal 16-63 [facility] Comment on above: Performed By: #### C MP ####[facility] Egqagshaki6665 [place] [phone]. Farhat Elvis Anion gap [Moles/Vol] 10.0 mmol/L Normal [facility] Comment on above: Performed By: #### C MP ####[facility] Baxegniskn66[address] [place], [place] [address]Dr. Farhat Elvis AST [Catalytic activity/Vol] 19 U/L Normal 15-37 [facility] Comment on above: Performed By: #### C MP ####[facility] Ehxskgfqmo132[address] [place], [place] [address]Dr. Farhat Elvis Bilirubin [Mass/Vol] 0.5 mg/dL Normal 0.2-1.0 [facility] Comment on above: Performed By: #### C MP ####[facility] Kybdzwtmyc266[address] [place], [place] [address]Dr. Farhat Elvis Calcium [Mass/Vol] 8.4 mg/dL Critically low 8.5-10.1 [facility] Comment on above: Performed By: #### C MP ####[facility] Vzmfsqxjnn6950[address] [place], [place] [address]Dr. Farhat Elvis Chloride [Moles/Vol] 108 mmol/L Critically high 98-107 [facility] Comment on above: Performed By: #### C MP ####[facility] Wmmznayenc2834[address] [place], [place] [address]Dr. Madelynlorri Leal CO2 [Moles/Vol] 26.9 mmol/L Normal 21.0-32.0 [facility] Comment on above: Performed By: #### C MP ####[facility] Oyizjdzcgj118[address] [place], [place] [address]Dr. Farhat Elvis Creatinine [Mass/Vol] 1.20 mg/dL Normal 0.70-1.30 [facility] Comment on above: Performed By: #### C MP ####[facility] Wfqtigcuzj9368 [place] [phone]. Farhat Elvis EGFR-AF CITIZ[place] >60 Normal >=60 [facility] Comment on above: Performed By: #### C MP ####[facility] Ssiqmowlhp7860 [place] [phone]. Farhat Elvis EGFR-NON AF CITIZEN OF [place] 59 mL/min/1.73m2 Critically low >=60 [facility] Comment on above: Performed By: #### C MP ####[facility] Bkzjzipgbo2157 [place] [phone]. Farhat Leal Globulin (S) [Mass/Vol] 3.0 g/dL Normal [facility] Comment on above: Performed By: #### C MP ####[facility] Dpbzolzqay1582 [place] [address]Dr. Farhat Leal Glucose [Mass/Vol] 213 mg/dL Critically high 74-106 [facility] Comment on above: Performed By: #### C MP ####[facility] Sxcuadqnws3287 [place] [phone]. Farhat Leal Potassium [Moles/Vol] 3.9 mmol/L Normal 3.5-5.1 [facility] Comment on above: Performed By: #### C MP ####[facility] Pkwoftqdsu4604 [place] [phone]. Farhat Leal Protein [Mass/Vol] 5.6 g/dL Critically low 6.4-8.2 [facility] Comment on above: Performed By: #### C MP ####[facility] Mnyyppppdd4901 [place] [phone]. Farhat Leal Sodium [Moles/Vol] 141 mmol/L Normal 136-145 [facility] Comment on above: Performed By: #### C MP ####[facility] Ehufugexwp0555 [place] [phone]. Farhat Leal Urea nitrogen [Mass/Vol] 61.0 mg/dL Critically high 7.0-18.0 [facility] Comment on above: Performed By: #### C MP ####[facility] [address]mdhbbhbts[address] [place], [place] [address]DrSkylar Leal Urea nitrogen/Creatinine [Mass ratio] 50.8 mg/mg Normal [facility] Comment on above: Performed By: #### C MP ####[facility] Rvxzegmlbi12[address] [place], [place] [address]DrSkylar Leal FK506 (TACROLIMUS) WHOLE BLO ODon 04-27-2022 Tacrolimus (FK506), Blood 16.5 ng/mL Normal 2.0-20.[address] [facility] Comment on above: Result Comment: Trou gh (immediately following transplant) 15.0 . Trough (steady state, 2 weeks or more after transplant): 3.0 - 8.0 . Performed by LC-MS/MS technology. Performed By: #### F K506T ####[facility] Vgcvjwdjbd825[address] [place], [place] [address]DrSkylar Leal CBC AUTO DIFFon 04-24-2022 BASO # 0.0 103/ul Normal 0.0-0.[address] [facility] Comment on above: Performed By: #### C BC ####[facility] Xjhzfsulgq822[address] [place], [place] [address]Dr. Farhat Leal Basophils/100 WBC (Bld) 0.5 % Normal 0.2-2.[address] [facility] Comment on above: Performed By: #### C BC ####[facility] [address]nfwgbxomt6924[address] [place], [place] [address]DrSkylar Leal EO # 0.2 103/ul Normal 0.0-0.[address] [facility] Comment on above: Performed By: #### C BC ####[facility] Egoibeikdh6318[address] [place], [place] [address]DrSkylar Leal Eosinophils/100 WBC (Bld) 3.1 % Normal 0.9-7.[address] [facility] Comment on above: Performed By: #### C BC ####[facility] Ulbvgeevlj4089[address] [place], [place] [address]Dr. Farhat Leal Erythrocyte distribution width (RBC) [Ratio] 16.3 % Critically high 11.0-15.0 [facility] Comment on above: Performed By: #### C BC ####[facility] Pusivejosk6447 [place] [address]Dr. Farhat Leal Hematocrit (Bld) [Volume fraction] 34.0 % Critically low 42.0-54.0 [facility] Comment on above: Performed By: #### C BC ####[facility] Wsaqfdmmbm555[address] [place], [place] [address]DrSkylar Leal Hemoglobin (Bld) [Mass/Vol] 11.6 g/dL Critically low 14.0-18.0 [facility] Comment on above: Performed By: #### C BC ####[facility] Qdutoxgxjc812346 [address] [place], [place] [address]Dr. Farhat Leal IG # 0.02 10e3/ul Normal 0.00-0.03 [facility] Comment on above: Performed By: #### C BC ####[facility] Sxcqknnyts22[address] [place], [place] [address]Dr. Farhat Leal IG % 0.4 % Normal 0.0-0.5 [facility] Comment on above: Performed By: #### C BC ####[facility] [address]wplijjqva15[address] [place], [place] [address]DrSkylar Leal LYMPH # 2.2 103/ul Normal 1.2-3.8 [facility] Comment on above: Performed By: #### C BC ####[facility] Cokkgxziqn145[address] [place], [place] [address]DrSkylar Leal Lymphocytes/100 WBC (Bld) 38.8 % Normal 20.5-60.[address] [facility] Comment on above: Performed By: #### C BC ####[facility] Gtvhuhkeuj6407[address] [place], [place] [address]DrSkylar Leal MANUAL DIFF REQ NO Normal [facility] Comment on above: Performed By: #### C BC ####[facility] Lybpnxqbnx[address] [place], [place] [address]DrSkylar Leal MCH (RBC) [Entitic mass] 30.1 pg Normal 25.9-34.0 [facility] Comment on above: Performed By: #### C BC ####[facility] Rgrdabcxwu0555 [place] [address]Dr. Farhat Leal MCHC (RBC) [Mass/Vol] 34.1 g/dL Normal 29.9-35.[address] [facility] Comment on above: Performed By: #### C BC ####[facility] Lxanyaurns5764[address] [place], [place] [address]DrSkylar Leal MCV (RBC) [Entitic vol] 88.1 fL Normal 80.0-94.[address] [facility] Comment on above: Performed By: #### C BC ####[facility] Oqgohnhgle0717[address] [place], [place] [address]DrSkylar Leal MONO # 0.6 103/ul Normal 0.3-0.[address] [facility] Comment on above: Performed By: #### C BC ####[facility] Vkachpkxua8[address] [place], [place] [address]Dr. Farhat Leal Monocytes/100 WBC (Bld) 10.8 % Normal 1.7-12.[address] [facility] Comment on above: Performed By: #### C BC ####[facility] Gceepturzz[address] [place], [place] [address]DrSkylar Leal NEUT # 2.6 103/ul Normal 1.4-6.[address] [facility] Comment on above: Performed By: #### C BC ####[facility] [address]fowszdkvw90[address] [place], [place] [address]DrSkylar Lela Neutrophils/100 WBC (Bld) 46.4 % Normal 43.0-75.[address] [facility] Comment on above: Performed By: #### C BC ####[facility] Cxtudqefum[address] [place], [place] [address]DrSkylar Leal Platelet mean volume (Bld) [Entitic vol] 10.9 fL Normal 9.5-13.[address] [facility] Comment on above: Performed By: #### C BC ####[facility] Dxbshxfbts[address] [place], [place] [address]Dr. Farhat Leal PLT 159 103/ul Normal 150-[address] [facility] Comment on above: Performed By: #### C BC ####[facility] Dnbjighujs4150 [place] [address]Dr. Farhat Leal RBC 3.86 106/ul Critically low 4.70-6.10 [facility] Comment on above: Performed By: #### C BC ####[facility] Bjujwbgaoc3302 [place] [address]Dr. Farhat eLal WBC 5.6 103/ul Normal 4.0-11.0 [facility] Comment on above: Performed By: #### C BC ####[facility] Iudaqljemz0590 [place] [address]DrSkylar Farhat Leal PROTIMEon 04-24-2022 INR Coag (PPP) [Relative time] 3.23 {INR} Normal [facility] Comment on above: Performed By: #### P T ####[facility] Jnjympidra[address] [place], [place] [address]Dr. Farhat Leal INR GUIDELINES SEE BELOW Normal [facility] Comment on above: Result Comment: MALINA RED INR: 2.0 - 3.0 CONDITIONS NOT LISTED BELOW 2.5 - 3.5 FOR PROSTHETIC HEART VALVE REPLACEMENT 2.5 - 3.5 RECURRENT THROMBOSIS Performed By: #### P T ####[facility] [address]pvayxvwfb80[address] [place], [place] [address]Dr. Farhat Leal PT Coag (PPP) [Time] 32.0 s Critically high 9.0-11.6 [facility] Comment on above: Performed By: #### P T ####[facility] [address]jodrkcx[address] [place], [place] [address]Dr. Farhat Leal FK506 (TACROLIMUS) WHOLE BLO ODon 04-20-2022 Tacrolimus (FK506), Blood 13.9 ng/mL Normal 2.0-20.0 [facility] Comment on above: Result Comment: Trou gh (immediately following transplant) 15.0 . Trough (steady state, 2 weeks or more after transplant): 3.0 - 8.0 . Performed by LC-MS/MS technology. Performed By: #### F K506T ####[facility] Suegddzdsb39[address] [place] [phone]. Farhat Leal CBC AUTO DIFFon 04-17-2022 BASO # 0.0 103/ul Normal 0.0-0.[address] [facility] Comment on above: Performed By: #### C BC ####[facility] I[address]ymovokm[address] [place] [phone]. Madelynlorri Leal Basophils/100 WBC (Bld) 0.4 % Normal 0.2-2.[address] [facility] Comment on above: Performed By: #### C BC ####[facility] Ochvxhyslw9751 [place] [address]Dr. Farhat Leal EO # 0.2 103/ul Normal 0.0-0.[address] [facility] Comment on above: Performed By: #### C BC ####[facility] Ngkwqagoij2427 [place] [address]Dr. Madelynlorri Leal Eosinophils/100 WBC (Bld) 2.8 % Normal 0.9-7.[address] [facility] Comment on above: Performed By: #### C BC ####[facility] Xjxtoiyhts2938 [place] [address]Dr. Farhat Leal Erythrocyte distribution width (RBC) [Ratio] 16.1 % Critically high 11.0-15.[address] [facility] Comment on above: Performed By: #### C BC ####[facility] [address] [place], [place] [address]Dr. Farhat Leal Hematocrit (Bld) [Volume fraction] 35.7 % Critically low 42.0-54.[address] [facility] Comment on above: Performed By: #### C BC ####[facility] R[address]cfj[address] [place], [place] [address]Dr. Farhat Leal Hemoglobin (Bld) [Mass/Vol] 12.2 g/dL Critically low 14.0-18.[address] [facility] Comment on above: Performed By: #### C BC ####[facility] Aagcpnfoar[address] [place] [phone]. Farhat Leal IG # 0.03 10e3/ul Normal 0.00-0.03 [facility] Comment on above: Performed By: #### C BC ####[facility] Oggaqafxxh0624 [place] [address]Dr. Farhat Leal IG % 0.4 % Normal 0.0-0.5 [facility] Comment on above: Performed By: #### C BC ####[facility] Vkkelxisds5463 [place] [address]Dr. Farhat Leal LYMPH # 2.4 103/ul Normal 1.2-3.8 [facility] Comment on above: Performed By: #### C BC ####[facility] Spcmbyapci1594 [place] [address]Dr. Farhat Leal Lymphocytes/100 WBC (Bld) 36.1 % Normal 20.5-60.0 [facility] Comment on above: Performed By: #### C BC ####[facility] [address] [place], [place] [address]Dr. Farhat Leal MANUAL DIFF REQ NO Normal [facility] Comment on above: Performed By: #### C BC ####[facility] Mpugtuhdzj0956 [place] [phone]. Farhat Leal MCH (RBC) [Entitic mass] 30.3 pg Normal 25.9-34.0 [facility] Comment on above: Performed By: #### C BC ####[facility] Hcjrkkrycq68[address] [place] [address]Dr. Farhat Leal MCHC (RBC) [Mass/Vol] 34.2 g/dL Normal 29.9-35.[address] [facility] Comment on above: Performed By: #### C BC ####[facility] [address] [place], [place] [address]Dr. Farhat Leal MCV (RBC) [Entitic vol] 88.6 fL Normal 80.0-94.[address] [facility] Comment on above: Performed By: #### C BC ####[facility] Dfsvgxb[address] [place], [place] [address]Dr. Farhat Leal MONO # 0.7 103/ul Normal 0.3-0.8 [facility] Comment on above: Performed By: #### C BC ####[facility] Onhldmzjst7154 [place] [phone]. Farhat Leal Monocytes/100 WBC (Bld) 10.1 % Normal 1.7-12.0 [facility] Comment on above: Performed By: #### C BC ####[facility] Xavbhubrye3098 [place] [phone]. Farhat Leal NEUT # 3.4 103/ul Normal 1.4-6.5 [facility] Comment on above: Performed By: #### C BC ####[facility] Acnjokzwpp4675 [place] [phone]. Farhat Leal Neutrophils/100 WBC (Bld) 50.2 % Normal 43.0-75.0 [facility] Comment on above: Performed By: #### C BC ####[facility] Ivrinkojkd6894 [place] [phone]. Farhat Elvis Platelet mean volume (Bld) [Entitic vol] 11.8 fL Normal 9.5-13.5 [facility] Comment on above: Performed By: #### C BC ####[facility] Pleazhvpoh3254 [place] [phone]. Farhat Leal PLT 193 103/ul Normal 150-450 [facility] Comment on above: Performed By: #### C BC ####[facility] Yufadkzmam7463 [place] [phone]. Farhat Leal RBC 4.03 106/ul Critically low 4.70-6.10 [facility] Comment on above: Performed By: #### C BC ####[facility] Dbokydmeto2150 [place] [phone]. Farhat Leal WBC 6.8 103/ul Normal 4.0-11.0 [facility] Comment on above: Performed By: #### C BC ####[facility] Zcmbkhzshv8379 [place] [phone] Leal PROF 14(COMP METB)on 023 Albumin [Mass/Vol] 2.9 g/dL Critically low 3.4-5.0 [facility] Comment on above: Performed By: #### C MP ####[facility] Ckgsehwrnj9322 [place] [address]Dr. Farhat Elvis Albumin/Globulin [Mass ratio] 0.9 {ratio} Normal [facility] Comment on above: Performed By: #### C MP ####[facility] Ysxepoejgb3637 [place] [address]Dr. Farhat Elvis ALP [Catalytic activity/Vol] 67 U/L Normal 46-116 [facility] Comment on above: Performed By: #### C MP ####[facility] [address] [place], [place] [address]Dr. Farhat Elvis ALT [Catalytic activity/Vol] 15 U/L Critically low 16-63 [facility] Comment on above: Performed By: #### C MP ####[facility] [address] [place], [place] [address]Dr. Farhat Leal Anion gap [Moles/Vol] 10.8 mmol/L Normal [facility] Comment on above: Performed By: #### C MP ####[facility] [address] [place], [place] [address]Dr. Farhat Elvis AST [Catalytic activity/Vol] 23 U/L Normal 15-37 [facility] Comment on above: Performed By: #### C MP ####[facility] [address] [place], [place] [address]Dr. Farhat Leal Bilirubin [Mass/Vol] 0.6 mg/dL Normal 0.2-1.0 [facility] Comment on above: Performed By: #### C MP ####[facility] [address] [place], [place] [address]Dr. Farhat Leal Calcium [Mass/Vol] 8.7 mg/dL Normal 8.5-10.1 [facility] Comment on above: Performed By: #### C MP ####[facility] [address] [place], [place] [address]Dr. Farhat Leal Chloride [Moles/Vol] 105 mmol/L Normal 98-107 [facility] Comment on above: Performed By: #### C MP ####[facility] Cqlzhjvnhr6988 [place] [phone]. Farhat Leal CO2 [Moles/Vol] 29.5 mmol/L Normal 21.0-32.0 [facility] Comment on above: Performed By: #### C MP ####[facility] Qjhoscasbx3821 [place] [phone]. Farhat Leal Creatinine [Mass/Vol] 1.37 mg/dL Critically high 0.70-1.30 [facility] Comment on above: Performed By: #### C MP ####[facility] Lepbwjfsbx2206 [place] [phone]. Farhat Leal EGFR-AF CITIZEN OF [place] >60 Normal >=60 [facility] Comment on above: Performed By: #### C MP ####[facility] Kkdwshcujb2225 [place] [address]Dr. Farhat Leal EGFR-NON AF CITIZEN OF [place] 50 mL/min/1.73m2 Critically low >=60 [facility] Comment on above: Performed By: #### C MP ####[facility] Juakxiagca[address] [place] [address]Dr. Farhat Leal Globulin (S) [Mass/Vol] 3.1 g/dL Normal [facility] Comment on above: Performed By: #### C MP ####[facility] Clknsxgxik7072 [place] [address]Dr. Farhat Leal Glucose [Mass/Vol] 203 mg/dL Critically high 74-106 [facility] Comment on above: Performed By: #### C MP ####[facility] Zljqfgqttj8565 [place] [phone]. Farhat Leal Potassium [Moles/Vol] 4.3 mmol/L Normal 3.5-5.1 [facility] Comment on above: Performed By: #### C MP ####[facility] Sldcllbfno8371 [place] [address]Dr. Farhat Leal Protein [Mass/Vol] 6.0 g/dL Critically low 6.4-8.2 [facility] Comment on above: Performed By: #### C MP ####[facility] Aokljurhic8349 [place] [phone]. Farhat Leal Sodium [Moles/Vol] 141 mmol/L Normal 136-145 [facility] Comment on above: Performed By: #### C MP ####[facility] Zjxmwqohhw2905 [place] [phone]. Farhat Leal Urea nitrogen [Mass/Vol] 65.0 mg/dL Critically high 7.0-18.0 [facility] Comment on above: Performed By: #### C MP ####[facility] Cwwkjzqvuu3392 [place] [address]Dr. Farhat Leal Urea nitrogen/Creatinine [Mass ratio] 47.4 mg/mg Normal [facility] Comment on above: Performed By: #### C MP ####[facility] Axjogkrost0417 [place] [address]Dr. Farhat Leal PROTIMEon 04-15-2022 INR Coag (PPP) [Relative time] 3.88 {INR} Normal [facility] Comment on above: Performed By: #### P T ####[facility] Xaiklpykgk9360 [place] [address]Dr. Farhat Leal INR GUIDELINES SEE BELOW Normal [facility] Comment on above: Result Comment: MALINA RED INR: 2.0 - 3.0 CONDITIONS NOT LISTED BELOW 2.5 - 3.5 FOR PROSTHETIC HEART VALVE REPLACEMENT 2.5 - 3.5 RECURRENT THROMBOSIS Performed By: #### P T ####[facility] [address] [place], [place] [address]Dr. Farhat Leal PT Coag (PPP) [Time] 38.1 s Critically high 9.0-11.6 [facility] Comment on above: Performed By: #### P T ####[facility] In[address]wtxx[address] [place], [place] [address]Dr. Farhat Leal Glucose Glucometer (BldC) [M ass/Vol]Ordered By: Sadia Aguilar on 04-14-2022 Glucose [Mass/Vol] 162 mg/dL [facility] Comment on above: Random Glucose Refer ence Range is dependent on time and content of last meal. Glucose of more than 200 mg/dL in a nonstressed, ambulatory subject supports the diagnosis of Diabetes Mellitus. Glucose Poct Glucometerson 0 04-14-2022 Commemt1 Glu2: Cleaned Meter Normal [facility] Comment on above: Result Comment: PERF ORMED BY: [facility] [place] [address] PATHOLOGIST [employer]PER[employer] JOSE F ELLIOTT M.D. Performed By: #### G LULS #### Point of Care testing , Glucose [Mass/Vol] 162 mg/dL Normal [facility] Comment on above: Result Comment: [place] Glucose Reference Range is dependent on time and content of last meal. Glucose of more than 200 mg/dL in a nonstressed, ambulatory subject supports the diagnosis of Diabetes Mellitus. Performed By: #### G LULS #### Point of Care testing , No Panel InformationOrdered By: Sadia Aguilar on 04-14-2022 Bedside Glucose Comment Glu2: cleaned meter [facility] MAGNESIUMon 04-13-2022 Magnesium [Mass/Vol] 1.7 mg/dL Critically low 1.8-2.[address] [facility] Comment on above: Performed By: #### M HENRI Manzo ####[facility] Gdaneihqds[address] [place] [address]Dr. Farhat Leal PHOSPHORUSon 04-13-2022 Phosphate [Mass/Vol] 4.8 mg/dL Critically high 2.6-4.[address] [facility] Comment on above: Performed By: #### M HENRI Manzo ####[facility] Epzfdzcmei3975 [place] [address]Dr. Farhat Leal PROTIMEon 04-13-2022 INR Coag (PPP) [Relative time] 3.16 {INR} Normal [facility] Comment on above: Performed By: #### P T ####[facility] Rpxgwfcnpm2579 [place] [address]Dr. Farhat Leal INR GUIDELINES SEE BELOW Normal [facility] Comment on above: Result Comment: MALINA RED INR: 2.0 - 3.0 CONDITIONS NOT LISTED BELOW 2.5 - 3.5 FOR PROSTHETIC HEART VALVE REPLACEMENT 2.5 - 3.5 RECURRENT THROMBOSIS Performed By: #### P T ####[facility] Jbhfquglxg8752 [place] [address]Dr. Farhat Leal PT Coag (PPP) [Time] 31.4 s Critically high 9.0-11.[address] [facility] Comment on above: Performed By: #### P T ####[facility] Fwyywxoqrv4047 [place] [address]Dr. Farhat Leal MAGNESIUMon 03-11-2022 Magnesium [Mass/Vol] 1.6 mg/dL Critically low 1.8-2.[address] [facility] Comment on above: Performed By: #### M Anais, HENRI ####[facility] Inrxdjyszz6925 [place] [address]Dr. Farhat Leal PHOSPHORUSon 03-11-2022 Phosphate [Mass/Vol] 5.3 mg/dL Critically high 2.6-4.[address] [facility] Comment on above: Performed By: #### Demetrice Manzo, HENRI ####[facility] [address]ws[address] [place], [place] [address]Dr. 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 Magic [employer] [place] with lunch aspirin, enteric coated (ASPIRIN, ENTERIC COATED) 81 mg EC tablet Take 1 tablet by (more content not included)... Normal [facility] Walter PROTIMEon 02-25-2022 INR Coag (PPP) [Relative time] 1.31 {INR} Normal [facility] Comment on above: Performed By: #### P T ####[facility] Petxtasctw4992 [place] [address]DrSkylar Leal INR GUIDELINES SEE BELOW Normal [facility] Comment on above: Result Comment: MALINA RED INR: 2.0 - 3.0 CONDITIONS NOT LISTED BELOW 2.5 - 3.5 FOR PROSTHETIC HEART VALVE REPLACEMENT 2.5 - 3.5 RECURRENT THROMBOSIS Performed By: #### P T ####[facility] Yiwnasvyrf2783 [place] [address]DrSkylar Leal PT Coag (PPP) [Time] 13.7 s Critically high 9.0-11.6 [facility] Comment on above: Performed By: #### P T ####[facility] Vuhnzjqwhj2250 [place] [address]DrSkylar Leal CNPNon 02-19-2022 CNPN Telephone (TXCTGL) ALEX ALOMNTE ([id number]) 1945 M TRN Date Time Provider Department [...] by mouth daily with lunch. 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 Sonya 02-18-2022 CNPN Telephone (PODCCP) ALEX ALMONTE ([id number]) 1945 M [facility] Date Time Provider Department 02/18/22 DEVON MOREIRA PODCCP During your visit today, we recorded the following information about you: Yumiko Denise 02/18/2022 3:16 PM Signed Reason for call: Mr. Almonte would like to request a sooner appointment with Dr. Peterson than 04/13/2022. Contact Name (if not the patient) Alex's nurse Home and cell number(Ask for Alex's nurse) [phone] Diagnosis 4 mo f/u wound check Best regards, Yumkio Beard 02/19/2022 12:22 PM Signed Alex Almonte [...] by mouth daily with lunch. 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 Normal [facility] CNOVon 02-05-2022 CNOV Office Visit (TXCTGL ) MINE ALMONTEJESÚS Kaet ([id number]) 1945 M TRN Date Time Provider Department 02/05/22 8:20 AM KIDNEY TXP CLINIC TXCTGL During your visit today, we recorded the following information about you: Temperature Pulse Blood pressure 96.7 degrees 79/minute 72/42 Asia Pike MD 02/05/2022 9:38 AM Signed [facility] [place] Transplant Follow up Portions of this note [...] and snacks patient declined. Indra scale at [facility]: 166.2 lbs per patient. Bed sore on coccyx causing discomfort. Being changed regularly at SNF- reported to be smaller around but still as deep. Patient not very up to date with medications. Patient brought paperwork from [employer] with all medications being received. Patient unsure if they have been drawing labs regularly. Last Tac from 01/19: 12.9 and K 5.9. In need of current labs. Lab orders will be sent with patient and follows as below: [facility] Trans[facility] [address] [facility] [address] [place], [place] [address] February 05, 2022 Alex Almonte 1945 [id number] STANDARD TESTING: Diagnosis Codes: Z94.0 Kidney Transplant [...] AT YOUR LABORATORY FACILITY AND FAX TO [phone]. PLEASE CALL [phone]. Provider: Dr. Pike Current Outpatient Medications Medication [...] (more content not included)... Normal [facility] PROTEIN CREATININE RATIOon 1 04-08-2021 Protein/Creatinine (U) [Mass ratio] 0.10 mg/mg <0.15 mg/mg [facility] PROTIMEon 02-05-2022 INR Coag (PPP) [Relative time] 2.90 {INR} Normal [facility] Comment on above: Performed By: #### P T ####[facility] Fggzfvgaxz4419 [place] [phone] Leal INR GUIDELINES SEE BELOW Normal [facility] Comment on above: Result Comment: MALINA RED INR: 2.0 - 3.0 CONDITIONS NOT LISTED BELOW 2.5 - 3.5 FOR PROSTHETIC HEART VALVE REPLACEMENT 2.5 - 3.5 RECURRENT THROMBOSIS Performed By: #### P T ####[facility] Vetyvmjqjv9949 [place] [phone] Leal PT Coag (PPP) [Time] 29.2 s Critically high 9.0-11.[address] [facility] Comment on above: Performed By: #### P T ####[facility] Wxhzgkfkwi6594 [place] [address]Dr. Farhat Leal Prot/Creat Uron 02-05-2022 Protein/Creatinine (U) [Mass ratio] 0.10 mg/mg Normal <0.15 [facility] Comment on above: Order Comment: Speci men Type: URINE SPECIMENOrdering Facility: [facility] Address: [address] [place] [address] Result Comment: Adul t Proteinuria Categories: <0.15 mg/mg is considered normal to mildly increased 0.15 - 0.50 mg/mg is considered moderately increased >0.50 mg/mg is considered severely increased KDIGO. (2013). KDIGO 2012 Clinical Practice Guideline for the Evaluation and Management of Chronic Kidney Disease. Official Journal of the International Society of Nephrology, 3(1), 1-150. Performed By: #### 2 890-2 ####[facility] LABCLIA [id number] [place] [address] [place] Protein/Creatinine (U) [Mass ratio]on 02-05-2022 Creatinine (U) [Mass/Vol] 86.9 mg/dL 20.0 - 300.0 mg/dL [facility] Protein (U) [Mass/Vol] 9 mg/dL 0 - 20 mg/dL [facility] Creatinine (U) [Mass/Vol] 86.9 mg/dL Normal 20.0-300.0 [facility] Comment on above: Order Comment: Speci men Type: URINE SPECIMENOrdering Facility: [facility] Address: [address] Performed By: #### 2 890-2 ####[facility] LABCLIA [id number] [place] [address] [place] Protein (U) [Mass/Vol] 9 mg/dL Normal 0-20 [facility] Comment on above: Order Comment: Speci men Type: URINE SPECIMENOrdering Facility: [facility] Address: [address] Performed By: #### 2 890-2 ####[facility] LABCLIA [id number] [place] [address] [place] URINALYSIS, DIPSTICK ONLYon 02-05-2022 Bilirubin Ql (U) Negative Normal Negative [facility] Comment on above: Order Comment: Speci men Type: URINE SPECIMEN Ordering Facility: [facility] Address: [address] Performed By: #### U A #### [facility] CLIA [id number] [address] [place] [address] [place] Clarity (Unsp spec) Clear Normal Clear [facility] Comment on above: Order Comment: Speci men Type: URINE SPECIMEN Ordering Facility: [facility] Address: [address] Performed By: #### U A #### [facility] CLIA [id number] [address] [place] [address] [place] Color (U) Yellow Normal Yellow [facility] Comment on above: Order Comment: Speci men Type: URINE SPECIMEN Ordering Facility: [facility] Address: [address] Performed By: #### U A #### [facility] CLIA [id number] [address] [place] [address] [place] Glucose Test strip (U) [Mass/Vol] 3+ Abnormal Trace, Negative [facility] Comment on above: Order Comment: Speci men Type: URINE SPECIMEN Ordering Facility: [facility] Address: [address] [place] [address] Performed By: #### U A #### [facility] CLIA [id number] [address] [place] [address] [place] Hemoglobin Ql (U) Negative Normal Negative, Trace [facility] Comment on above: Order Comment: Speci men Type: URINE SPECIMEN Ordering Facility: [facility] Address: [address] [place] [address] Performed By: #### U A #### [facility] CLIA [id number] [address] [place] [address] [place] Ketones Ql (U) Trace Normal Negative, Trace [facility] Comment on above: Order Comment: Speci men Type: URINE SPECIMEN Ordering Facility: [facility] Address: [address] [place] [address] Performed By: #### U A #### [facility] CLIA [id number] [address] [place] [address] [place] Leukocyte esterase Test strip Ql (U) Negative Normal Negative, 25 [place]/mL [facility] Comment on above: Order Comment: Speci men Type: URINE SPECIMEN Ordering Facility: [facility] Address: [address] [place] [address] Performed By: #### U A #### [facility] CLIA [id number] [address] [place] [address] [place] Nitrite Ql (U) Negative Normal Negative [facility] Comment on above: Order Comment: Speci men Type: URINE SPECIMEN Ordering Facility: [facility] Address: [address] [place] [address] Performed By: #### U A #### [facility] CLIA [id number] [facility] [place] [address] [place] pH (U) 5.5 [pH] Normal 5.0-8.0 [facility] Comment on above: Order Comment: Speci men Type: URINE SPECIMEN Ordering Facility: [facility] Address: [address] [place] [address] Performed By: #### U A #### [facility] CLIA [id number] [address] [place] [address] [place] Protein (U) [Mass/Vol] Negative Normal Trace , Negative [facility] Comment on above: Order Comment: Speci men Type: URINE SPECIMEN Ordering Facility: [facility] Address: [address] [place] [address] Performed By: #### U A #### [facility] IA [id number] [address] [place] [address] [place] Specific gravity (U) [Rel density] 1.014 Normal 1.005-1.030 [facility] Comment on above: Order Comment: Speci men Type: URINE SPECIMEN Ordering Facility: [facility] Address: [address] [place] [address] Performed By: #### U A #### [facility] [place] [id number] [address] [place] [address] [place] Urobilinogen Ql (U) 1+ Abnormal Negative [facility] Comment on above: Order Comment: Speci men Type: URINE SPECIMEN Ordering Facility: [facility] Address: [address] [place] [address] Performed By: #### U A #### [facility] [place] [id number] [address] [place] [address] [place] Bilirubin Ql (U) Negative Negative [facility] Clarity (Unsp spec) Clear Clear [facility] Color (U) Yellow Yellow [facility] Glucose Test strip (U) [Mass/Vol] 3+ Abnormal Trace, Negative [facility] Hemoglobin Ql (U) Negative Negative, Trace [facility] Ketones Ql (U) Trace Negative, Trace [facility] Leukocyte esterase Test strip Ql (U) Negative Negative, 25 Loraine/mL [facility] Nitrite Ql (U) Negative Negative [facility] pH (U) 5.5 [pH] 5.0 - 8.0 [facility] Protein (U) [Mass/Vol] Negative Trace , Negative [facility] Specific gravity (U) [Rel density] 1.014 1.005 - 1.030 [facility] Urobilinogen Ql (U) 1+ Abnormal Negative [facility] FK506 (TACROLIMUS) WHOLE BLO ODon 01-29-2022 Tacrolimus (FK506), Blood 11.1 ng/mL Normal 2.0-20.0 [facility] Comment on above: Result Comment: Trou gh (immediately following transplant) 15.0 . Trough (steady state, 2 weeks or more after transplant): 3.0 - 8.0 . Performed by LC-MS/MS technology. Performed By: #### F K506T ####[facility] Cdoyxpoqho[address] [place], [place] [address]Dr. Farhat Leal PHOSPHORUSon 01-26-2022 Phosphate [Mass/Vol] 4.1 mg/dL Normal 2.6-4.7 [facility] Comment on above: Performed By: #### C CARA PHOS ####[facility] [address] [place] [address]DrSkylar Leal PROF 14(COMP METB)on 022 Albumin [Mass/Vol] 2.1 g/dL Critically low 3.4-5.0 [facility] Comment on above: Performed By: #### C CARA PHOS ####[facility] [address] [place] [address]DrSkylar Leal Albumin/Globulin [Mass ratio] 0.6 {ratio} Normal [facility] Comment on above: Performed By: #### C CARA PHOS ####[facility] Djdiv[address]kjz[address] [place] [address]Dr. Farhat Leal ALP [Catalytic activity/Vol] 89 U/L Normal 46-116 [facility] Comment on above: Performed By: #### C MP, PHOS ####[facility] [address]arp[address] [place] [address]Dr. Farhat Leal ALT [Catalytic activity/Vol] 27 U/L Normal 16-63 [facility] Comment on above: Performed By: #### C MP, PHOS ####[facility] E[address]ewwjunjr[address] [place] [address]Dr. Farhat Elvis Anion gap [Moles/Vol] 12.3 mmol/L Normal [facility] Comment on above: Performed By: #### C MP, PHOS ####[facility] Jkillpwyzx[address] [place], [place] [address]Dr. Farhat Elvis AST [Catalytic activity/Vol] 53 U/L Critically high 15-37 [facility] Comment on above: Performed By: #### C CARA, PHOS ####[facility] Ljpnzhviff[address] [place], [place] [address]Dr. Farhat Leal Bilirubin [Mass/Vol] 0.6 mg/dL Normal 0.2-1.0 [facility] Comment on above: Performed By: #### C CARA, PHOS ####[facility] Cetaoqvwmw[address] [place], [place] [address]Dr. Madelynlorri Leal Calcium [Mass/Vol] 8.0 mg/dL Critically low 8.5-10.1 [facility] Comment on above: Performed By: #### C CARA, PHOS ####[facility] [address]wkns[address] [place], [place] [address]Dr. Farhat Elvis Chloride [Moles/Vol] 97 mmol/L Critically low 98-107 [facility] Comment on above: Performed By: #### C MP, PHOS ####[facility] Jrjkqbucvr[address] [place], [place] [address]Dr. Farhat Leal CO2 [Moles/Vol] 26.6 mmol/L Normal 21.0-32.0 [facility] Comment on above: Performed By: #### C CARA, PHOS ####[facility] Bxxbxkfzmh[address] [place], [place] [address]Dr. Farhat Leal Creatinine [Mass/Vol] 1.03 mg/dL Normal 0.70-1.30 [facility] Comment on above: Performed By: #### C CARA, PHOS ####[facility] [address] [place] [address]Dr. Farhat Leal EGFR-AF CITIZEN OF [place] >60 Normal >=60 [facility] Comment on above: Performed By: #### C CARA, PHOS ####[facility] [address]bi[address] [place] [address]Dr. Farhat Leal EGFR-NON AF CITIZEN OF [place] >60 Normal >=60 [facility] Comment on above: Performed By: #### C CARA, PHOS ####[facility] Ookzltlzbe[address] [place], [place] [address]Dr. Farhat Leal Globulin (S) [Mass/Vol] 3.7 g/dL Normal [facility] Comment on above: Performed By: #### C CARA, PHOS ####[facility] Qupxpufxpn9[address] [place], [place] [address]Dr. Farhat Leal Glucose [Mass/Vol] 287 mg/dL Critically high 74-106 [facility] Comment on above: Performed By: #### C CARA, PHOS ####[facility] Vdrflgzofy[address] [place], [place] [address]Dr. Farhat Leal Potassium [Moles/Vol] 3.9 mmol/L Normal 3.5-5.1 [facility] Comment on above: Performed By: #### C CARA, PHOS ####[facility] Gggtbiivim9[address] [place], [place] [address]Dr. Farhat Leal Protein [Mass/Vol] 5.8 g/dL Critically low 6.4-8.2 [facility] Comment on above: Performed By: #### C CARA, PHOS ####[facility] Tigqctnrix022[address] [place], [place] [address]Dr. Farhat Leal Sodium [Moles/Vol] 132 mmol/L Critically low 136-145 [facility] Comment on above: Performed By: #### C CARA, PHOS ####[facility] [address] [place] [phone]. Farhat Leal Urea nitrogen [Mass/Vol] 23.0 mg/dL Critically high 7.0-18.[address] [facility] Comment on above: Performed By: #### C HENRI MARROQUIN ####[facility] [address] [place] [phone]. Farhat Leal Urea nitrogen/Creatinine [Mass ratio] 22.3 mg/mg Normal [facility] Comment on above: Performed By: #### C HENRI MARROQUIN ####[facility] Eiqzdpoori[address] [place], [place] [address]Dr. Farhat Leal FK506 (TACROLIMUS) WHOLE BLO ODon 01-21-2022 Tacrolimus (FK506), Blood 12.2 ng/mL Normal 2.0-20.0 [facility] Comment on above: Result Comment: Trou gh (immediately following transplant) 15.0 . Trough (steady state, 2 weeks or more after transplant): 3.0 - 8.0 . Performed by LC-MS/MS technology. Performed By: #### F K506T ####[facility] B[address]jzeimza[address] [place], [place] [address]Dr. Farhat Leal ACID FAST SMEAR AND CXon Acid Fast Culture Negative Normal [facility] Comment on above: Result Comment: No a abdiel fast bacilli isolated after 6 weeks. Performed By: #### A FB ####[facility] [address] [place] [address]Dr. Farhat Leal Acid Fast Smear Negative Normal [facility] Comment on above: Performed By: #### A FB ####[facility] Urqatgwdxt[address] [place], [place] [address]Dr. Farhat Leal [employer] Specimen Processing Tissue Grinding Normal [facility] Comment on above: Performed By: #### A FB ####[facility] Boh[address]nfhp[address] [place], [place] [address]Dr. Farhat Hassan [facility] ALEX ALMONTE ([id number]) 1945 M TRN Date Time Provider Department [...] by mouth daily with lunch. 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 [address] [place] [address]DrSkylar Leal Albumin/Globulin [Mass ratio] 0.5 {ratio} Normal [facility] Comment on above: Performed By: #### C MP ####[facility] [address]vh[address] [place] [address]DrSkylar Leal ALP [Catalytic activity/Vol] 78 U/L Normal 46-116 [facility] Comment on above: Performed By: #### C MP ####[facility] [address]vez[address] [place] [address]Dr. Farhat Leal ALT [Catalytic activity/Vol] 22 U/L Normal 16-63 [facility] Comment on above: Performed By: #### C MP ####[facility] [address] [place] [address]Dr. Madelynlorri Elvis Anion gap [Moles/Vol] 8.0 mmol/L Normal [facility] Comment on above: Performed By: #### C MP ####[facility] [address] [place], [place] [address]Dr. Madelynlorri Leal AST [Catalytic activity/Vol] 92 U/L Critically high 15-37 [facility] Comment on above: Performed By: #### C MP ####[facility] Oqbblmaekf[address] [place], [place] [address]Dr. Farhat Leal Bilirubin [Mass/Vol] 0.7 mg/dL Normal 0.2-1.0 [facility] Comment on above: Performed By: #### C MP ####[facility] Gocrgsfvht[address] [place], [place] [address]Dr. Farhat Leal Calcium [Mass/Vol] 7.8 mg/dL Critically low 8.5-10.[address] [facility] Comment on above: Performed By: #### C MP ####[facility] Djazkgrjsq[address] [place], [place] [address]Dr. Farhat Leal Chloride [Moles/Vol] 99 mmol/L Normal 98-[address] [facility] Comment on above: Performed By: #### C MP ####[facility] Pclvwktcak[address] [place], [place] [address]Dr. Farhat Leal CO2 [Moles/Vol] 30.9 mmol/L Normal 21.0-32.0 [facility] Comment on above: Performed By: #### C MP ####[facility] Wshnqivaay[address] [place], [place] [address]Dr. Farhat Leal Creatinine [Mass/Vol] 0.95 mg/dL Normal 0.70-1.30 [facility] Comment on above: Performed By: #### C MP ####[facility] T[address]rdvixdw[address] [place], [place] [address]Dr. Farhat Leal EGFR-AF CITIZEN [place] >60 Normal >=60 [facility] Comment on above: Performed By: #### C MP ####[facility] [address] [place] [phone]. Farhat Leal EGFR-NON AF CITIZEN [place] >60 Normal >=60 [facility] Comment on above: Performed By: #### C MP ####[facility] [address]kyqqc[address] [place] [phone]. Farhat Leal Globulin (S) [Mass/Vol] 3.9 g/dL Normal [facility] Comment on above: Performed By: #### C MP ####[facility] Xxc[address]nglh[address] [place] [address]Dr. Farhat Leal Glucose [Mass/Vol] 124 mg/dL Critically high 74-106 [facility] Comment on above: Performed By: #### C MP ####[facility] Hfpbmawezn[address] [place], [place] [address]Dr. Farhat Leal Potassium [Moles/Vol] 5.9 mmol/L Critically high 3.5-5.1 [facility] Comment on above: Performed By: #### C MP ####[facility] Xhouhxvefl[address] [place], [place] [address]Dr. Farhat Leal Protein [Mass/Vol] 5.8 g/dL Critically low 6.4-8.2 [facility] Comment on above: Performed By: #### C MP ####[facility] [address]tvfawl[address] [place], [place] [address]Dr. Farhat Leal Sodium [Moles/Vol] 132 mmol/L Critically low 136-145 [facility] Comment on above: Performed By: #### C MP ####[facility] [address] [place], [place] [address]Dr. Farhat Leal Urea nitrogen [Mass/Vol] 18.0 mg/dL Normal 7.0-18.0 [facility] Comment on above: Performed By: #### C MP ####[facility] Dyqxdwfiod[address] [place], [place] [address]Dr. Farhat Leal Urea nitrogen/Creatinine [Mass ratio] 18.9 mg/mg Normal [facility] Comment on above: Performed By: #### C MP ####[facility] [address]uzclo[address] [place] [address]Dr. Farhat Leal INR (POC)on 01-12-2022 INR Coag (PPP) [Relative time] 2.6 {INR} High 0.8 - 1.2 [facility] Internal Quality Check Acceptable Cl [facility] ACID FAST SMEAR AND CXon Acid Fast Culture Negative Normal [facility] Comment on above: Result Comment: No a abdiel fast bacilli isolated after 6 weeks. Performed By: #### A FB ####[facility] Zddnqemaad104[address] [place], [place] [address]Dr. Farhat Leal Acid Fast Smear Negative Normal [facility] Comment on above: Performed By: #### A FB ####[facility] [address]ifdnsimc[address] [place], [place] [address]Dr. Farhat Leal [employer] Specimen Processing Direct Inoculation Normal [facility] Comment on above: Performed By: #### A FB ####[facility] Fxfugayfjm[address] [place], [place] [address]Dr. Farhat Leal ACID FAST SMEAR AND CXon Acid Fast Culture Negative Normal [facility] Comment on above: Result Comment: No a abdiel fast bacilli isolated after 6 weeks. Performed By: #### A FB ####[facility] C[address]warqwji[address] [place], [place] [address]Dr. Farhat Leal Acid Fast Smear Negative Normal [facility] Comment on above: Performed By: #### A FB ####[facility] [address]lpwda[address] [place], [place] [address]Dr. Farhat Le[employer] Specimen Processing Tissue [facility] Comment on above: Performed By: #### A FB ####[facility] [address]voofhsimi[address] [place], [place] [address]Dr. Farhat Leal FUNGAL CULTUREon 01-02-2022 Fungus (Mycology) Culture Final report Normal [facility] Comment on above: Performed By: #### C XFUN ####[facility] Onslnelodd[address] [place], [place] [address]Dr. Farhat Leal Fungus Stain Final report Normal [facility] Comment on above: Performed By: #### C XFUN ####[facility] [address] [place] [address]. Farhat Leal Result [address] [facility] Comment on above: Result Comment: ANNI/ Calcofluor preparation: no fungus observed. Performed By: #### C XFUN ####[facility] E[address]qannjlm[address] [place], [place] [address]Dr. Farhat Leal Result Comment: No y east or mold isolated after 4 weeks. FK506 (TACROLIMUS) WHOLE BLO ODon 12-31-2021 Tacrolimus (FK506), Blood 7.7 ng/mL Normal 2.0-20.0 [facility] Comment on above: Result Comment: Trou gh (immediately following transplant) 15.0 . Trough (steady state, 2 weeks or more after transplant): 3.0 - 8.0 . Performed by LC-MS/MS technology. Performed By: #### F K506T ####[facility] F[address]tvbmtbh[address] [place], [place] [address]Dr. Farhat Leal HEMOGRAM AND PLATELon 2021 Hematocrit (Bld) [Volume fraction] 27.1 % Critically low 42.0-54.0 [facility] Comment on above: Performed By: #### H H ####[facility] [address] [place] [address]. Farhat Leal Hemoglobin (Bld) [Mass/Vol] 8.7 g/dL Critically low 14.0-18.0 [facility] Comment on above: Performed By: #### H H ####[facility] [address]aaqraiw[address] [place], [place] [address]Dr. Farhat Leal MCH (RBC) [Entitic mass] 30.3 pg Normal 25.9-34.[address] [facility] Comment on above: Performed By: #### H H ####[facility] Idawhitjcj[address] [place], [place] [address]Dr. Farhat Leal MCHC (RBC) [Mass/Vol] 32.1 g/dL Normal 29.9-35.[address] [facility] Comment on above: Performed By: #### H H ####[facility] [address]dcq[address] [place] [phone]. Farhat Leal MCV (RBC) [Entitic vol] 94.4 fL Critically high 80.0-94.0 [facility] Comment on above: Performed By: #### H H ####[facility] [address] [place] [phone]. Farhat Elvis PLT 355 103/ul Normal 150-450 [facility] Comment on above: Performed By: #### H H ####[facility] [address] [place] [phone]. Farhat Leal RBC 2.87 106/ul Critically low 4.70-6.10 [facility] Comment on above: Performed By: #### H H ####[facility] [address]bbl[address] [place] [address]Dr. Farhat Leal WBC 6.0 103/ul Normal 4.0-11.0 [facility] Comment on above: Performed By: #### H H ####[facility] [address]vkvbu[address] [place] [phone]. Farhat Leal PHOSPHORUSon 12-29-2021 Phosphate [Mass/Vol] 2.5 mg/dL Critically low 2.6-4.7 [facility] Comment on above: Performed By: #### P HOS, CMP ####[facility] [address]wgirt[address] [place] [address]DrSkylar Leal PROF 14(COMP METB)on 022 Albumin [Mass/Vol] 1.7 g/dL Critically low 3.4-5.0 [facility] Comment on above: Performed By: #### P HOS, CMP ####[facility] V[address]vqlvb[address] [place] [address]Dr. Farhat Leal Albumin/Globulin [Mass ratio] 0.5 {ratio} Normal [facility] Comment on above: Performed By: #### P HOS, CMP ####[facility] [address]vukbbm[address] [place] [address]DrSkylar Leal ALP [Catalytic activity/Vol] 78 U/L Normal 46-116 [facility] Comment on above: Performed By: #### P HOS, CMP ####[facility] [address]bt[address]ivq[address] [place], [place] [address]Dr. Madelynlorri Leal ALT [Catalytic activity/Vol] 12 U/L Critically low 16-63 [facility] Comment on above: Performed By: #### P HOS, CMP ####[facility] Wdonuqwdus[address] [place], [place] [address]Dr. Farhat Leal Anion gap [Moles/Vol] 5.1 mmol/L Normal [facility] Comment on above: Performed By: #### P HOS, CMP ####[facility] Repnwneqis[address] [place], [place] [address]Dr. Farhat Leal AST [Catalytic activity/Vol] 22 U/L Normal 15-37 [facility] Comment on above: Performed By: #### P HOS, CMP ####[facility] [address]uklrzjtg[address] [place], [place] [address]Dr. Farhat Leal Bilirubin [Mass/Vol] 0.6 mg/dL Normal 0.2-1.0 [facility] Comment on above: Performed By: #### P HOS, CMP ####[facility] Icvkwoopyk[address] [place], [place] [address]Dr. Farhat Leal Calcium [Mass/Vol] 8.1 mg/dL Critically low 8.5-10.1 [facility] Comment on above: Performed By: #### P HOS, CMP ####[facility] Ozvwcogjmt[address] [place], [place] [address]Dr. Farhat Leal Chloride [Moles/Vol] 100 mmol/L Normal 98-[address] [facility] Comment on above: Performed By: #### P HOS, CMP ####[facility] [address]sf[address]djst[address] [place], [place] [address]Dr. Farhat Leal CO2 [Moles/Vol] 34.2 mmol/L Critically high 21.0-32.0 [facility] Comment on above: Performed By: #### P HOS, CMP ####[facility] Dazxfdxbmz[address] [place], [place] [address]Dr. Farhat Leal Creatinine [Mass/Vol] 0.92 mg/dL Normal 0.70-1.30 [facility] Comment on above: Performed By: #### P HOS, CMP ####[facility] Qtvlydnyjr[address] [place] [address]Dr. Farhat Elvis EGFR-AF CITIZEN [place] >60 Normal >=60 [facility] Comment on above: Performed By: #### P HOS, CMP ####[facility] Mvflkxgzrd9[address] [place] [address]Dr. Farhat Elvis EGFR-NON AF CITIZEN OF [place] >60 Normal >=60 [facility] Comment on above: Performed By: #### P HOS, CMP ####[facility] [address]mmjrxmln[address] [place], [place] [address]Dr. Farhat Leal Globulin (S) [Mass/Vol] 3.3 g/dL Normal [facility] Comment on above: Performed By: #### P HOS, CMP ####[facility] Qmoawngcde[address] [place], [place] [address]Dr. Farhat Leal Glucose [Mass/Vol] 116 mg/dL Critically high 74-106 [facility] Comment on above: Performed By: #### P HOS, CMP ####[facility] Fkpxctdtvc2[address] [place], [place] [address]Dr. Farhat Leal Potassium [Moles/Vol] 3.3 mmol/L Critically low 3.5-5.1 [facility] Comment on above: Performed By: #### P HOS, CMP ####[facility] Ttshdhvbdx[address] [place], [place] [address]Dr. Farhat Leal Protein [Mass/Vol] 5.0 g/dL Critically low 6.4-8.2 [facility] Comment on above: Performed By: #### P HOS, CMP ####[facility] Wccadhuytd[address] [place], [place] [address]Dr. Farhat Leal Sodium [Moles/Vol] 136 mmol/L Normal 136-145 [facility] Comment on above: Performed By: #### P HOS, CMP ####[facility] [address]rppzbdccc[address] [place], [place] [address]Dr. Farhat Leal Urea nitrogen [Mass/Vol] 14.0 mg/dL Normal 7.0-18.[address] [facility] Comment on above: Performed By: #### P HOS, CMP ####[facility] Ejaplnvnjy[address] [place], [place] [address]Dr. Farhat Leal Urea nitrogen/Creatinine [Mass ratio] 15.2 mg/mg Normal [facility] Comment on above: Performed By: #### P HOS, CMP ####[facility] [address]ovv[address] [place] [address]Dr. Farhat Leal PROTIMEon 12-29-2021 INR Coag (PPP) [Relative time] 1.26 {INR} Normal [facility] Comment on above: Performed By: #### P T ####[facility] [address]dvlawixr[address] [place], [place] [address]Dr. Farhat Leal INR GUIDELINES SEE BELOW Normal [facility] Comment on above: Result Comment: MALINA RED INR: 2.0 - 3.0 CONDITIONS NOT LISTED BELOW 2.5 - 3.5 FOR PROSTHETIC HEART VALVE REPLACEMENT 2.5 - 3.5 RECURRENT THROMBOSIS Performed By: #### P T ####[facility] D[address]fehrkvj[address] [place], [place] [address]Dr. Farhat Leal PT Coag (PPP) [Time] 13.4 s Critically high 9.0-11.[address] [facility] Comment on above: Performed By: #### P T ####[facility] [address]by[address]qhth[address] [place], [place] [address]DrSkylar Leal XR MODIFIED BARIUM SWALLOWon 12-25-2021 XR MODIFIED BARIUM SWALLOW Normal [facility] FUNGAL CULTUREon 12-24-2021 Fungus (Mycology) Culture Final report Normal [facility] Comment on above: Performed By: #### C XFUN ####[facility] K[address]sehvc[address] [place], [place] [address]DrSkylar Leal Fungus Stain Final report Normal [facility] Comment on above: Performed By: #### C XFUN ####[facility] [address]yvjlb[address] [place], [place] [address]DrSkylar Leal Result [address] [facility] Comment on above: Result Comment: ANNI/ Calcofluor preparation: no fungus observed. Performed By: #### C XFUN ####[facility] Dadfcugzxe[address] [place], [place] [address]Dr. Farhat Leal Result Comment: No y east or mold isolated after 4 weeks. VANCOMYCIN TROUGHon 12-21-19 VANCOMYCIN TROUGH 14.4 ug/ml Normal 5.0-20.0 [facility] Comment on above: Performed By: #### V ANCT ####[facility] Awugowxayr[address] [place], [place] [address]Dr. Farhat Elvis CBC AUTO DIFFon 12-14-2021 BASO # 0.0 103/ul Normal 0.0-0.1 [facility] Comment on above: Performed By: #### C BC ####[facility] R[address]yhlutds[address] [place], [place] [address]Dr. Farhat Leal Basophils/100 WBC (Bld) 0.2 % Normal 0.2-2.0 [facility] Comment on above: Performed By: #### C BC ####[facility] [address]esduebp[address] [place], [place] [address]Dr. Madelynlorri Leal EO # 0.2 103/ul Normal 0.0-0.7 [facility] Comment on above: Performed By: #### C BC ####[facility] Xqcpdahkno[address] [place], [place] [address]Dr. Farhat Leal Eosinophils/100 WBC (Bld) 2.1 % Normal 0.9-7.[address] [facility] Comment on above: Performed By: #### C BC ####[facility] [address] [place], [place] [address]Dr. Madelynlorri Leal Erythrocyte distribution width (RBC) [Ratio] 18.2 % Critically high 11.0-15.[address] [facility] Comment on above: Performed By: #### C BC ####[facility] [address] [place], [place] [address]Dr. Farhat Leal Hematocrit (Bld) [Volume fraction] 25.8 % Critically low 42.0-54.[address] [facility] Comment on above: Performed By: #### C BC ####[facility] Frthdismwi16[address] [place] [phone]. Farhat Leal Hemoglobin (Bld) [Mass/Vol] 8.0 g/dL Critically low 14.0-18.0 [facility] Comment on above: Performed By: #### C BC ####[facility] Jnvkwrsuzu9678 [place] [phone]. Farhat Leal IG # 0.08 10e3/ul Critically high 0.00-0.03 [facility] Comment on above: Performed By: #### C BC ####[facility] Aueuuvdztn9152 [place] [phone]. Farhat Leal IG % 0.7 % Critically high 0.0-0.5 [facility] Comment on above: Performed By: #### C BC ####[facility] Cfajsigijs27[address] [place] [address]Dr. Farhat Leal LYMPH # 0.9 103/ul Critically low 1.2-3.8 [facility] Comment on above: Performed By: #### C BC ####[facility] Xmufnxbgtr2680 [place] [phone]. Farhat Leal Lymphocytes/100 WBC (Bld) 8.7 % Critically low 20.5-60.0 [facility] Comment on above: Performed By: #### C BC ####[facility] Honnzghvxj28[address] [place] [address]Dr. Farhat Leal MANUAL DIFF REQ NO Normal [facility] Comment on above: Performed By: #### C BC ####[facility] Xclzldahyg5587 [place] [phone]. Farhat Leal MCH (RBC) [Entitic mass] 30.0 pg Normal 25.9-34.[address] [facility] Comment on above: Performed By: #### C BC ####[facility] Ibynlxfqxw5197 [place] [phone]. Farhat Leal MCHC (RBC) [Mass/Vol] 31.0 g/dL Normal 29.9-35.[address] [facility] Comment on above: Performed By: #### C BC ####[facility] Hxmkfciooh9915 [place] [phone]. Farhat Leal MCV (RBC) [Entitic vol] 96.6 fL Critically high 80.0-94.0 [facility] Comment on above: Performed By: #### C BC ####[facility] Jgnwfyyhdi2025 [place] [phone]. Farhat Leal MONO # 0.7 103/ul Normal 0.3-0.[address] [facility] Comment on above: Performed By: #### C BC ####[facility] Kcwsvfzuxj5539 [place] [phone]. Farhat Leal Monocytes/100 WBC (Bld) 6.7 % Normal 1.7-12.0 [facility] Comment on above: Performed By: #### C BC ####[facility] Qeoeugfd[address] [place], [place] [address]Dr. Farhat Leal NEUT # 8.8 103/ul Critically high 1.4-6.[address] [facility] Comment on above: Performed By: #### C BC ####[facility] [address]uefq[address] [place], [place] [phone]. Farhat Leal Neutrophils/100 WBC (Bld) 81.6 % Critically high 43.0-75.[address] [facility] Comment on above: Performed By: #### C BC ####[facility] Hzuvsbjgaw[address] [place], [place] [address]Dr. Farhat Leal Platelet mean volume (Bld) [Entitic vol] 10.5 fL Normal 9.5-13.[address] [facility] Comment on above: Performed By: #### C BC ####[facility] Vtbnnerncx1253 [place] [phone]. Farhat Leal PLT 285 103/ul Normal 150-[address] [facility] Comment on above: Performed By: #### C BC ####[facility] Ckfqgtrqzl2246 [place] [phone]. Farhat Leal RBC 2.67 106/ul Critically low 4.70-6.[address] [facility] Comment on above: Performed By: #### C BC ####[facility] Jfnoevoxjt5077 [place] [address]Dr. Madelynlorri Elvis WBC 10.7 103/ul Normal 4.0-11.0 [facility] Comment on above: Performed By: #### C BC ####[facility] Lseraqtmiy7801 [place] [address]Dr. Farhat Leal PROF CHEM 8 (BAS METB)on Anion gap [Moles/Vol] 12.4 mmol/L Normal [facility] Comment on above: Performed By: #### B MP ####[facility] Rcpriojavx[address] [place], [place] [address]Dr. Farhat Leal Calcium [Mass/Vol] 7.8 mg/dL Critically low 8.5-10.1 [facility] Comment on above: Performed By: #### B MP ####[facility] Ejoeeooyrn[address] [place], [place] [address]Dr. Farhat Leal Chloride [Moles/Vol] 102 mmol/L Normal 98-107 [facility] Comment on above: Performed By: #### B MP ####[facility] Zuhgijvgxe[address] [place], [place] [address]Dr. Farhat Leal CO2 [Moles/Vol] 28.1 mmol/L Normal 21.0-32.0 [facility] Comment on above: Performed By: #### B MP ####[facility] Qnmvffawjq[address] [place], [place] [address]Dr. Farhat Leal Creatinine [Mass/Vol] 1.24 mg/dL Normal 0.70-1.30 [facility] Comment on above: Performed By: #### B MP ####[facility] Tqgnjerisa[address] [place], [place] [address]Dr. Farhat Leal EGFR-AF CITIZEN OF [place] >60 Normal >=60 [facility] Comment on above: Performed By: #### B MP ####[facility] Eufrlyuv[address] [place], [place] [address]Dr. Farhat Leal EGFR-NON AF CITIZEN OF [place] 57 mL/min/1.73m2 Critically low >=60 [facility] Comment on above: Performed By: #### B MP ####[facility] Vsoeeneciu9611 [place] [address]Dr. Farhat Leal Glucose [Mass/Vol] 296 mg/dL Critically high 74-106 [facility] Comment on above: Performed By: #### B MP ####[facility] Wycdjwmwhz7721 [place] [phone]. Farhat Leal Potassium [Moles/Vol] 3.5 mmol/L Normal 3.5-5.1 [facility] Comment on above: Performed By: #### B MP ####[facility] Bujpjvytio5785 [place] [address]Dr. Farhat Leal Sodium [Moles/Vol] 139 mmol/L Normal 136-145 [facility] Comment on above: Performed By: #### B MP ####[facility] Kerqgpmhmm2969 [place] [address]Dr. Farhat Leal Urea nitrogen [Mass/Vol] 27.0 mg/dL Critically high 7.0-18.0 [facility] Comment on above: Performed By: #### B MP ####[facility] Ncsrpflzvp[address] [place], [place] [address]Dr. Farhta Leal Urea nitrogen/Creatinine [Mass ratio] 21.8 mg/mg Normal [facility] Comment on above: Performed By: #### B MP ####[facility] Ajsjovhxxj0772 [place] [address]Dr. Farhat Leal PROTIMEon 12-14-2021 INR Coag (PPP) [Relative time] 3.36 {INR} Normal [facility] Comment on above: Performed By: #### P T ####[facility] Jfretjazte[address] [place], [place] [address]Dr. Farhat Leal INR GUIDELINES SEE BELOW Normal [facility] Comment on above: Result Comment: MALINA RED INR: 2.0 - 3.0 CONDITIONS NOT LISTED BELOW 2.5 - 3.5 FOR PROSTHETIC HEART VALVE REPLACEMENT 2.5 - 3.5 RECURRENT THROMBOSIS Performed By: #### P T ####[facility] [address]umeepky[address] [place], [place] [address]Dr. Farhat Leal PT Coag (PPP) [Time] 33.5 s Critically high 9.0-11.6 [facility] Comment on above: Performed By: #### P T ####[facility] Uoxirjmiyy4271 [place], [place] [address]Tt. Farhat Leal XR CHEST 1 Von 12-14-2021 XR CHEST [address] [facility] No Panel Informationon 12-01 BLANK _ [facility] Implant Date 04/22/2012 [facility] CHECKon AMS Duration (ms) 5 of 8 [facility] AMS Fallback Rate (bpm) DDIR [facility] AV Delay Adaptive Paced Minimum (ms) 300 ms [facility] AV Delay Adaptive Rate Maximum (bpm) 130 {beats}/min [facility] AV Delay Adaptive Rate Minimum (bpm) 70 {beats}/min [facility] AV Delay Adaptive Sensed Minimum (ms) 300 ms [facility] AV Delay Paced (ms) 300 ms [facility] AV Delay Sensed (ms) 300 ms [facility] Jaciel LV Pacing Polarity Unknown [facility] Jaciel LV Sensing Polarity Unknown [facility] Jaciel RA Pacing Amplitude (volts) 2.4 V [facility] Jaciel RA Pacing Polarity BI [facility] Jaciel RA Pacing Pulse Width (ms) 0.4 ms [facility] Jaciel RA Sensing Amplitude (mvolts) AUTO [facility] Jaciel RA Sensing Blanking Period (ms) 56 ms [facility] Jaciel RA Sensing Polarity BI [facility] Jaciel RA Sensing Refractory Period (ms) AUTO [facility] Jaciel RV Pacing Amplitude (volts) 3.4 V [facility] Jaciel RV Pacing Polarity BI [facility] Jaciel RV Pacing Pulse Width (ms) 0.4 ms [facility] Jaciel RV Sensing Amplitude (mvolts) AUTO [facility] Jaciel RV Sensing Blanking Period (ms) 30 ms [facility] Jaciel RV Sensing Polarity BI [facility] Jaciel RV Sensing Refractory Period (ms) 250 ms [facility] Hysteresis Rate (bpm) 60 {beats}/min [facility] Lead1 Mfg SUZETTE [facility] Lead2 Mfg SUZETTE [facility] Location RA [facility] Location RV [facility] Lower Rate (bpm) 60 {beats}/min [facility] Max Sensor Rate (bmp) 130 {beats}/min [facility] Model 243208 Monika cortes [facility] Model 442252 [facility] Model [id number] [facility] Pacemaker Dependent? NO [facility] PM-Device Mfg BIO [facility] PM-PMT Intervention ON [facility] PM-PVC Intervention ON [facility] PM-Rate Modulation Acceleration Reaction 4 s [facility] PM-Rate Modulation Deceleration 0.5 m [facility] PM-Rate Modulation Camas 23 [facility] PM-Rate Modulation Threshold Medium [facility] RA Bipolar Impedance ohms 448 ohm [facility] Rhythm AF with controlled ventricular rate. [facility] RV Bipolar Impedance ohms 390 ohm [facility] Serial Number [id number] [facility] Serial Number [id number] [facility] Serial Number [id number] [facility] Thresh RA Sensing Amplitude (mvolts) 2.4 mV [facility] Thresh RV Capture Amplitude (volts) 1.8 V [facility] Thresh RV Capture Duration (ms) 0.4 ms [facility] Thresh RV Sensing Amplitude (mvolts) 2.4 mV [facility] Tracking Rate (bpm) 160 {beats}/min [facility] BNPon 11-28-2021 Natriuretic peptide B (Bld) [Mass/Vol] 27952.0 pg/mL Critically high <=1,800.[address] [facility] Comment on above: Performed By: #### C MP, BNP, CRP ####[facility] Dsbruzksyj[address] [place], [place] [address]Dr. Farhat Leal CBC AUTO DIFFon 11-28-2021 BASO # 0.0 103/ul Normal 0.0-0.[address] [facility] Comment on above: Performed By: #### C BC ####[facility] Eormcdvxsj[address] [place], [place] [address]Dr. Farhat Leal Basophils/100 WBC (Bld) 0.3 % Normal 0.2-2.[address] [facility] Comment on above: Performed By: #### C BC ####[facility] Bdlaylaxib[address] [place], [place] [address]Dr. Farhat Leal EO # 0.1 103/ul Normal 0.0-0.[address] [facility] Comment on above: Performed By: #### C BC ####[facility] Euednyyhfg1045 [place] [address]Dr. Farhat Leal Eosinophils/100 WBC (Bld) 1.0 % Normal 0.9-7.[address] [facility] Comment on above: Performed By: #### C BC ####[facility] [address]pbqizahy[address] [place], [place] [address]Dr. Farhat Leal Erythrocyte distribution width (RBC) [Ratio] 14.0 % Normal 11.0-15.[address] [facility] Comment on above: Performed By: #### C BC ####[facility] Dxgzblqejr[address] [place], [place] [address]Dr. Farhat Leal Hematocrit (Bld) [Volume fraction] 27.6 % Critically low 42.0-54.[address] [facility] Comment on above: Performed By: #### C BC ####[facility] Pijanjkbml[address] [place], [place] [address]Dr. Farhat Leal Hemoglobin (Bld) [Mass/Vol] 9.0 g/dL Critically low 14.0-18.0 [facility] Comment on above: Performed By: #### C BC ####[facility] Dlunxklijl[address] [place], [place] [address]Dr. Farhat Leal IG # 0.12 10e3/ul Critically high 0.00-0.03 [facility] Comment on above: Performed By: #### C BC ####[facility] Tmgptkxuuo6630 [place] [address]Dr. Farhat Leal IG % 1.0 % Critically high 0.0-0.[address] [facility] Comment on above: Performed By: #### C BC ####[facility] Zdzakbdceu[address] [place], [place] [address]Dr. Farhat Leal LYMPH # 1.2 103/ul Normal 1.2-3.[address] [facility] Comment on above: Performed By: #### C BC ####[facility] [address]llftujdy[address] [place], [place] [address]Dr. Farhat Leal Lymphocytes/100 WBC (Bld) 9.9 % Critically low 20.5-60.[address] [facility] Comment on above: Performed By: #### C BC ####[facility] Nphykjjkak2947 [place] [phone]. Farhat Leal MANUAL DIFF REQ NO Normal [facility] Comment on above: Performed By: #### C BC ####[facility] Uapnghijfk4339 [place] [phone]. Farhat Leal MCH (RBC) [Entitic mass] 30.0 pg Normal 25.9-34.[address] [facility] Comment on above: Performed By: #### C BC ####[facility] [address]uf[address] [place], [place] [address]Dr. Farhat Leal MCHC (RBC) [Mass/Vol] 32.6 g/dL Normal 29.9-35.[address] [facility] Comment on above: Performed By: #### C BC ####[facility] Gmowjasmci0258 [place] [address]Dr. Madelynlorri Leal MCV (RBC) [Entitic vol] 92.0 fL Normal 80.0-94.[address] [facility] Comment on above: Performed By: #### C BC ####[facility] Poryuardbu5315 [place] [address]Dr. Farhat Elvis MONO # 1.1 103/ul Critically high 0.3-0.[address] [facility] Comment on above: Performed By: #### C BC ####[facility] Fivspgjctv1402 [place] [address]Dr. Farhat Leal Monocytes/100 WBC (Bld) 9.3 % Normal 1.7-12.[address] [facility] Comment on above: Performed By: #### C BC ####[facility] Sgmikjsvnp8635 [place] [address]Dr. Madelynlorri Leal NEUT # 9.3 103/ul Critically high 1.4-6.[address] [facility] Comment on above: Performed By: #### C BC ####[facility] [address]lamnwpzan[address] [place], [place] [address]Dr. Farhat Leal Neutrophils/100 WBC (Bld) 78.5 % Critically high 43.0-75.[address] [facility] Comment on above: Performed By: #### C BC ####[facility] Imrjxcyinu5088 [place] [address]Dr. Farhat Leal Platelet mean volume (Bld) [Entitic vol] 9.6 fL Normal 9.5-13.5 [facility] Comment on above: Performed By: #### C BC ####[facility] Elszjvqgdx4699 [place] [address]Dr. Farhat Leal PLT 357 103/ul Normal 150-450 [facility] Comment on above: Performed By: #### C BC ####[facility] Pfqeumndaq6173 [place] [address]Dr. Farhat Leal RBC 3.00 106/ul Critically low 4.70-6.10 [facility] Comment on above: Performed By: #### C BC ####[facility] Rrkfiqrsyp0951 [place] [address]Dr. aFrhat Leal WBC 11.8 103/ul Critically high 4.0-11.0 [facility] Comment on above: Performed By: #### C BC ####[facility] Jnzfyjqnea4326 [place] [address]Dr. Farhat Leal CRPon 11-28-2021 CRP 20.9 mg/dL Critically high <=1.0 [facility] Comment on above: Performed By: #### C MP, BNP, CRP ####[facility] Dtjjzybzgy9196 [place] [address]Dr. Farhat Leal CULTURE OTHERon 11-28-2021 CULTURE OTHER Normal [facility] Comment on above: Performed By: #### O THCX ####[facility] Spripguteg7852 [place] [address]Dr. Farhat Leal CULTURE OTHER Normal [facility] Comment on above: Performed By: #### O THCX ####[facility] C[address]qbgnbwa[address] [place], [place] [address]Dr. Farhat Elvis PROF 14(COMP METB)on 022 Albumin [Mass/Vol] 1.4 g/dL Critically low 3.4-5.0 [facility] Comment on above: Performed By: #### C MP, BNP, CRP ####[facility] Axdjilxusz5859 [place] [address]Dr. Farhat Leal Albumin/Globulin [Mass ratio] 0.4 {ratio} Normal [facility] Comment on above: Performed By: #### C MP, BNP, CRP ####[facility] Qnlrpjroap9644 [place] [address]Dr. Farhat Leal ALP [Catalytic activity/Vol] 82 U/L Normal 46-116 [facility] Comment on above: Performed By: #### C MP, BNP, CRP ####[facility] Htpqsskyir7097 [place] [address]Dr. Farhat Leal ALT [Catalytic activity/Vol] 20 U/L Normal 16-63 [facility] Comment on above: Performed By: #### C MP, BNP, CRP ####[facility] Dntwipsgoa1877 [place] [address]Dr. Farhat Leal Anion gap [Moles/Vol] 13.0 mmol/L Normal [facility] Comment on above: Performed By: #### C MP, BNP, CRP ####[facility] Vsncjrxagg[address] [place], [place] [address]Dr. Farhat Leal AST [Catalytic activity/Vol] 33 U/L Normal 15-37 [facility] Comment on above: Performed By: #### C MP, BNP, CRP ####[facility] Btyayfopth[address] [place], [place] [address]Dr. Farhat Leal Bilirubin [Mass/Vol] 0.7 mg/dL Normal 0.2-1.0 [facility] Comment on above: Performed By: #### C MP, BNP, CRP ####[facility] Kgrtcxlxeo9916 [place] [address]Dr. Farhat Leal Calcium [Mass/Vol] 8.4 mg/dL Critically low 8.5-10.1 [facility] Comment on above: Performed By: #### C MP, BNP, CRP ####[facility] Efvncylcrk4179 [place] [address]Dr. Farhat Leal Chloride [Moles/Vol] 100 mmol/L Normal 98-107 [facility] Comment on above: Performed By: #### C MP, BNP, CRP ####[facility] Hsmzidqkzi6515 [place] [address]Dr. Farhat Leal CO2 [Moles/Vol] 23.7 mmol/L Normal 21.0-32.0 [facility] Comment on above: Performed By: #### C MP, BNP, CRP ####[facility] Lgsdpfhmhv6039 [place] [address]Dr. Farhat Leal Creatinine [Mass/Vol] 1.70 mg/dL Critically high 0.70-1.[address] [facility] Comment on above: Performed By: #### C MP, BNP, CRP ####[facility] [address]vdprxdzr[address] [place], [place] [address]Dr. Farhat Leal EGFR-AF [place]IZ[place] 48 mL/min/1.73m2 Critically low >=60 [facility] Comment on above: Performed By: #### C MP, BNP, CRP ####[facility] Yxmhmrcouf[address] [place], [place] [address]Dr. Farhat Leal EGFR-NON AF CITIZEN [place] 39 mL/min/1.73m2 Critically low >=[address] [facility] Comment on above: Performed By: #### C MP, BNP, CRP ####[facility] Ezxxsrgpmq[address] [place], [place] [address]Dr. Farhat Leal Globulin (S) [Mass/Vol] 3.6 g/dL Normal [facility] Comment on above: Performed By: #### C MP, BNP, CRP ####[facility] Aqxqiemsgh7931 [place] [address]Dr. Farhat Leal Glucose [Mass/Vol] 232 mg/dL Critically high 74-106 [facility] Comment on above: Performed By: #### C MP, BNP, CRP ####[facility] Duzneqegmj[address] [place], [place] [address]Dr. Farhat Leal Potassium [Moles/Vol] 3.7 mmol/L Normal 3.5-5.1 [facility] Comment on above: Performed By: #### C MP, BNP, CRP ####[facility] Xjftcrbtlw6629 [place] [address]Dr. Farhat Leal Protein [Mass/Vol] 5.0 g/dL Critically low 6.4-8.2 [facility] Comment on above: Performed By: #### C MP, BNP, CRP ####[facility] Kfafnfkdmp0366 [place] [address]Dr. Farhat Leal Sodium [Moles/Vol] 133 mmol/L Critically low 136-145 [facility] Comment on above: Performed By: #### C MP, BNP, CRP ####[facility] Zdqsafhvvk8116 [place] [address]Dr. Farhat Leal Urea nitrogen [Mass/Vol] 52.0 mg/dL Critically high 7.0-18.0 [facility] Comment on above: Performed By: #### C MP, BNP, CRP ####[facility] Tnkjmwfkuk[address] [place], [place] [address]Dr. Farhat Leal Urea nitrogen/Creatinine [Mass ratio] 30.6 mg/mg Normal [facility] Comment on above: Performed By: #### C MP, BNP, CRP ####[facility] [address]zoflbwjo[address] [place], [place] [address]Dr. Farhat Leal PROTIMEon 11-28-2021 INR Coag (PPP) [Relative time] 1.29 {INR} Normal [facility] Comment on above: Performed By: #### P T ####[facility] Qtpbzgsdsv39[address] [place], [place] [address]Dr. Farhat Leal INR GUIDELINES SEE BELOW Normal [facility] Comment on above: Result Comment: MALINA RED INR: 2.0 - 3.0 CONDITIONS NOT LISTED BELOW 2.5 - 3.5 FOR PROSTHETIC HEART VALVE REPLACEMENT 2.5 - 3.5 RECURRENT THROMBOSIS Performed By: #### P T ####[facility] R[address]uzlnqgfv[address] [place], [place] [address]Dr. Farhat Leal PT Coag (PPP) [Time] 13.7 s Critically high 9.0-11.6 [facility] Comment on above: Performed By: #### P T ####[facility] [address]qrflj[address] [place], [place] [address]Dr. Farhat Leal SED RATE WESTERGRENon 2021 SED RATE 77 mm/hr Critically high <=[address] [facility] Comment on above: Performed By: #### S EDR ####[facility] Jtnlnqyjxx[address] [place], [place] [address]Dr. Farhat Leal XR CHEST 2 Von 11-28-2021 XR CHEST [address] [facility] BNPon 11-27-2021 Natriuretic peptide B (Bld) [Mass/Vol] 89366.0 pg/mL Critically high <=1,800.[address] [facility] Comment on above: Performed By: #### B SAFETY MANAGER, CMP, CRP ####[facility] S[address]ripdebgm[address] [place], [place] [address]Dr. Farhat Leal CBC AUTO DIFFon 11-27-2021 BASO # 0.0 103/ul Normal 0.0-0.1 [facility] Comment on above: Performed By: #### C BC ####[facility] Qvmfkhkhbq[address] [place], [place] [address]Dr. Farhat Leal Basophils/100 WBC (Bld) 0.2 % Normal 0.2-2.[address] [facility] Comment on above: Performed By: #### C BC ####[facility] Ydnlmqizum[address] [place], [place] [address]Dr. Farhat Leal EO # 0.2 103/ul Normal 0.0-0.[address] [facility] Comment on above: Performed By: #### C BC ####[facility] S[address]hrxs[address] [place], [place] [address]Dr. Farhat Leal Eosinophils/100 WBC (Bld) 1.9 % Normal 0.9-7.[address] [facility] Comment on above: Performed By: #### C BC ####[facility] Wehdatlisx[address] [place], [place] [address]Dr. Farhat Leal Erythrocyte distribution width (RBC) [Ratio] 13.9 % Normal 11.0-15.[address] [facility] Comment on above: Performed By: #### C BC ####[facility] Rdfjhghfcv[address] [place], [place] [address]Dr. Farhat Leal Hematocrit (Bld) [Volume fraction] 28.7 % Critically low 42.0-54.[address] [facility] Comment on above: Performed By: #### C BC ####[facility] Ucdzuklydh5[address] [place] [address]Dr. Madelynlorri Leal Hemoglobin (Bld) [Mass/Vol] 9.3 g/dL Critically low 14.0-18.[address] [facility] Comment on above: Performed By: #### C BC ####[facility] Bxfuvshggu0487 [place] [address]Dr. Farhat Leal IG # 0.14 10e3/ul Critically high 0.00-0.03 [facility] Comment on above: Performed By: #### C BC ####[facility] Rixumzlihx6245 [place] [address]Dr. Farhat Leal IG % 1.2 % Critically high 0.0-0.[address] [facility] Comment on above: Performed By: #### C BC ####[facility] Okljgxqjxr5689 [place] [address]DrSkylar Leal LYMPH # 1.1 103/ul Critically low 1.2-3.8 [facility] Comment on above: Performed By: #### C BC ####[facility] [address]zsxoyim[address] [place] [id number] Leal Lymphocytes/100 WBC (Bld) 9.4 % Critically low 20.5-60.[address] [facility] Comment on above: Performed By: #### C BC ####[facility] Gvgtanovmu[address]51 [place] [address]DrSkylar Leal MANUAL DIFF REQ NO Normal [facility] Comment on above: Performed By: #### C BC ####[facility] Unbfmhnyjx6442 [place] [address]DrSkylar Leal MCH (RBC) [Entitic mass] 29.7 pg Normal 25.9-34.[address] [facility] Comment on above: Performed By: #### C BC ####[facility] Eycilljmkt6310 [place] [address]Dr. Farhat Leal MCHC (RBC) [Mass/Vol] 32.4 g/dL Normal 29.9-35.[address] [facility] Comment on above: Performed By: #### C BC ####[facility] Zuepvvtmgr[address] [place] [phone]. Farhat Leal MCV (RBC) [Entitic vol] 91.7 fL Normal 80.0-94.[address] [facility] Comment on above: Performed By: #### C BC ####[facility] Zypfkuewaf8907 [place] [phone]. Farhat Leal MONO # 1.1 103/ul Critically high 0.3-0.[address] [facility] Comment on above: Performed By: #### C BC ####[facility] Osuzvpozyq0077 [place] [address]Dr. Farhat Elvis Monocytes/100 WBC (Bld) 9.7 % Normal 1.7-12.[address] [facility] Comment on above: Performed By: #### C BC ####[facility] Uoypqzbmsg8137 [place] [address]Dr. Farhat Leal NEUT # 9.2 103/ul Critically high 1.4-6.[address] [facility] Comment on above: Performed By: #### C BC ####[facility] Efhcifkjdr8160 [place] [phone]. Farhat Leal Neutrophils/100 WBC (Bld) 77.6 % Critically high 43.0-75.[address] [facility] Comment on above: Performed By: #### C BC ####[facility] Vcpjvunzqe1151 [place] [phone]. Farhat Leal Platelet mean volume (Bld) [Entitic vol] 9.5 fL Normal 9.5-13.[address] [facility] Comment on above: Performed By: #### C BC ####[facility] Ziqxnodehz8310 [place] [phone]. Farhat Elvis PLT 375 103/ul Normal 150-[address] [facility] Comment on above: Performed By: #### C BC ####[facility] Mbzulpmwxa1859 [place] [phone]. Farhat Leal RBC 3.13 106/ul Critically low 4.70-6.10 [facility] Comment on above: Performed By: #### C BC ####[facility] Zkvrizsmig3097 [place] [phone]. Farhat Leal WBC 11.8 103/ul Critically high 4.0-11.0 [facility] Comment on above: Performed By: #### C BC ####[facility] Gunbaeoifo5048 [place] [phone]. Farhat Leal CRPon 11-27-2021 CRP 24.5 mg/dL Critically high <=1.0 [facility] Comment on above: Performed By: #### B SAFETY MANAGER, CMP, CRP ####[facility] Ctzvnialee5625 [place] [address]Dr. Farhat Leal CULTURE OTHERon 11-27-2021 CULTURE OTHER Normal [facility] Comment on above: Performed By: #### O THCX ####[facility] Xlepkorfij2746 [place] [address]Dr. Farhat Leal CULTURE OTHER Normal [facility] Comment on above: Performed By: #### O THCX ####[facility] Jszxpwgxyk9544 [place] [address]Dr. Farhat Leal CULTURE WOUNDon 11-27-2021 CULTURE WOUND Normal [facility] Comment on above: Performed By: #### W OUNDCX ####[facility] Mmqrdkwhxk3428 [place] [address]Dr. Farhat Leal POINT OF CARE GLUCOSEon 11-15 Glucose [Mass/Vol] 147 mg/dL Critically high 74-106 [facility] Comment on above: Performed By: #### P OCGLUC ####[facility] Ivakfxpgnx[address] [place], [place] [address]Dr. Farhat Leal PROF 14(COMP METB)on 022 Albumin [Mass/Vol] 1.4 g/dL Critically low 3.4-5.0 [facility] Comment on above: Performed By: #### B SAFETY MANAGER, CMP, CRP ####[facility] Aujusjfved2900 [place] [address]Dr. Farhat Leal Albumin/Globulin [Mass ratio] 0.4 {ratio} Normal [facility] Comment on above: Performed By: #### B SAFETY MANAGER, CMP, CRP ####[facility] Jeyybpmacd4643 [place] [address]Dr. Farhat Leal ALP [Catalytic activity/Vol] 82 U/L Normal 46-116 [facility] Comment on above: Performed By: #### B SAFETY MANAGER, CMP, CRP ####[facility] Rmsqbyxfye0364 [place] [address]Dr. Farhat Leal ALT [Catalytic activity/Vol] 22 U/L Normal 16-63 [facility] Comment on above: Performed By: #### B SAFETY MANAGER, CMP, CRP ####[facility] Wtasjqkoqe[address] [place], [place] [address]Dr. Farhat Leal Anion gap [Moles/Vol] 14.2 mmol/L Normal [facility] Comment on above: Performed By: #### B SAFETY MANAGER, CMP, CRP ####[facility] Wlclgtbshz29[address] [place], [place] [address]Dr. Farhat Leal AST [Catalytic activity/Vol] 35 U/L Normal 15-37 [facility] Comment on above: Performed By: #### B SAFETY MANAGER, CMP, CRP ####[facility] Mbyxayszym[address] [place], [place] [address]Dr. Farhat Leal Bilirubin [Mass/Vol] 0.7 mg/dL Normal 0.2-1.0 [facility] Comment on above: Performed By: #### B SAFETY MANAGER, CMP, CRP ####[facility] Sqpkocxloo15[address] [place], [place] [address]Dr. Farhat Leal Calcium [Mass/Vol] 8.2 mg/dL Critically low 8.5-10.1 [facility] Comment on above: Performed By: #### B SAFETY MANAGER, CMP, CRP ####[facility] Bwlzcbiqpb[address] [place], [place] [address]Dr. Farhat Leal Chloride [Moles/Vol] 99 mmol/L Normal 98-107 [facility] Comment on above: Performed By: #### B SAFETY MANAGER, CMP, CRP ####[facility] Dkvkyzgzmr2314 [place] [address]Dr. Farhat Leal CO2 [Moles/Vol] 22.6 mmol/L Normal 21.0-32.0 [facility] Comment on above: Performed By: #### B SAFETY MANAGER, CMP, CRP ####[facility] Qdwkmzocby5151 [place] [address]Dr. Farhat Leal Creatinine [Mass/Vol] 1.73 mg/dL Critically high 0.70-1.30 [facility] Comment on above: Performed By: #### B SAFETY MANAGER, CMP, CRP ####[facility] Kscoxjdjzd[address] [place], [place] [address]Dr. Farhat Leal EGFR-AF CITIZEN [place] 47 mL/min/1.73m2 Critically low >=60 [facility] Comment on above: Performed By: #### B SAFETY MANAGER, CMP, CRP ####[facility] Rbwawaimzl[address] [place], [place] [address]Dr. Farhat Leal EGFR-NON AF CITIZEN OF [place] 38 mL/min/1.73m2 Critically low >=[address] [facility] Comment on above: Performed By: #### B SAFETY MANAGER, CMP, CRP ####[facility] Oojnblpgqm029[address] [place], [place] [address]Dr. Farhat Leal Globulin (S) [Mass/Vol] 3.7 g/dL Normal [facility] Comment on above: Performed By: #### B SAFETY MANAGER, CMP, CRP ####[facility] Ibnacqwfiz0421 [place] [address]Dr. Farhat Leal Glucose [Mass/Vol] 220 mg/dL Critically high 74-106 [facility] Comment on above: Performed By: #### B SAFETY MANAGER, CMP, CRP ####[facility] Qxpyqycver813[address] [place], [place] [address]Dr. Farhat Leal Potassium [Moles/Vol] 3.8 mmol/L Normal 3.5-5.1 [facility] Comment on above: Performed By: #### B SAFETY MANAGER, CMP, CRP ####[facility] Odiwvndadl3291 [place] [address]Dr. Farhat Leal Protein [Mass/Vol] 5.1 g/dL Critically low 6.4-8.2 [facility] Comment on above: Performed By: #### B SAFETY MANAGER, CMP, CRP ####[facility] Vndksvasrr4258 [place] [address]Dr. Farhat Leal Sodium [Moles/Vol] 132 mmol/L Critically low 136-145 [facility] Comment on above: Performed By: #### B SAFETY MANAGER, CMP, CRP ####[facility] Xfxmeidorp4147 [place] [address]Dr. Farhat Leal Urea nitrogen [Mass/Vol] 49.0 mg/dL Critically high 7.0-18.0 [facility] Comment on above: Performed By: #### B SAFETY MANAGER, CMP, CRP ####[facility] Nnakikbfab65[address] [place], [place] [address]Dr. Farhat Leal Urea nitrogen/Creatinine [Mass ratio] 28.3 mg/mg Normal [facility] Comment on above: Performed By: #### B SAFETY MANAGER, CMP, CRP ####[facility] Wkeiobwokk8602 [place] [address]Dr. Farhat Leal PROTIMEon 11-27-2021 INR Coag (PPP) [Relative time] 1.25 {INR} Normal [facility] Comment on above: Performed By: #### P T ####[facility] [address]juxfbtzhi[address] [place], [place] [address]Dr. Farhat Leal INR GUIDELINES SEE BELOW Normal [facility] Comment on above: Result Comment: MALINA RED INR: 2.0 - 3.0 CONDITIONS NOT LISTED BELOW 2.5 - 3.5 FOR PROSTHETIC HEART VALVE REPLACEMENT 2.5 - 3.5 RECURRENT THROMBOSIS Performed By: #### P T ####[facility] Dhmliauicd7[address] [place], [place] [address]Dr. Farhat Leal PT Coag (PPP) [Time] 13.3 s Critically high 9.0-11.6 [facility] Comment on above: Performed By: #### P T ####[facility] Bxfdmwzveg56[address] [place], [place] [address]Dr. Farhat Leal SED RATE WESTERGRENon 2021 SED RATE 60 mm/hr Critically high <=[address] [facility] Comment on above: Performed By: #### S EDR ####[facility] Rqluzgnsjg5010 [place] [address]Dr. Farhat Leal VANCOMYCIN TROUGHon 11-28-19 VANCOMYCIN TROUGH 21.2 ug/ml Critically high 5.0-20.[address] [facility] Comment on above: Performed By: #### V ANCT ####[facility] Qjdbpchylq2124 [place] [address]Dr. Farhat Leal XR CHEST 1 Von 11-27-2021 XR CHEST [address] [facility] BNPon 11-26-2021 Natriuretic peptide B (Bld) [Mass/Vol] 40462.0 pg/mL Critically high <=1,800.[address] [facility] Comment on above: Performed By: #### B SAFETY MANAGER, CRP, CMP ####[facility] Ftbgoxpwlv[address] [place], [place] [address]Dr. Farhat Leal CBC AUTO DIFFon 11-26-2021 BASO # 0.0 103/ul Normal 0.0-0.[address] [facility] Comment on above: Performed By: #### C BC ####[facility] Jffntadmgd7739 [place] [address]Dr. Farhat Leal Basophils/100 WBC (Bld) 0.2 % Normal 0.2-2.[address] [facility] Comment on above: Performed By: #### C BC ####[facility] Srqqclfdwz5498 [place] [address]Dr. Farhat Leal EO # 0.0 103/ul Normal 0.0-0.[address] [facility] Comment on above: Performed By: #### C BC ####[facility] Dxzjljuxkv39[address] [place], [place] [address]Dr. Farhat Leal Eosinophils/100 WBC (Bld) 0.3 % Critically low 0.9-7.[address] [facility] Comment on above: Performed By: #### C BC ####[facility] Ojympqqgty7681 [place] [address]Dr. Farhat Leal Erythrocyte distribution width (RBC) [Ratio] 13.9 % Normal 11.0-15.[address] [facility] Comment on above: Performed By: #### C BC ####[facility] Ryhmlhceyz5736 [place] [address]Dr. Farhat Leal Hematocrit (Bld) [Volume fraction] 27.3 % Critically low 42.0-54.[address] [facility] Comment on above: Performed By: #### C BC ####[facility] Jqwzghrqvf[address] [place], [place] [address]Dr. Farhat Leal Hemoglobin (Bld) [Mass/Vol] 8.8 g/dL Critically low 14.0-18.0 [facility] Comment on above: Performed By: #### C BC ####[facility] Morpmevykl[address] [place], [place] [address]Dr. Madelynlorri Elvis IG # 0.17 10e3/ul Critically high 0.00-0.03 [facility] Comment on above: Performed By: #### C BC ####[facility] Mulgsxeghc[address] [place], [place] [address]Dr. Farhat Leal IG % 1.2 % Critically high 0.0-0.[address] [facility] Comment on above: Performed By: #### C BC ####[facility] Pdodymggec4524[address] [place], [place] [address]Dr. Farhat Leal LYMPH # 0.7 103/ul Critically low 1.2-3.8 [facility] Comment on above: Performed By: #### C BC ####[facility] Zxtcnnwach[address] [place], [place] [address]Dr. Madelynlorri Leal Lymphocytes/100 WBC (Bld) 4.8 % Critically low 20.5-60.[address] [facility] Comment on above: Performed By: #### C BC ####[facility] Pbzrguewri5[address] [place], [place] [address]Dr. Farhat Leal MANUAL DIFF REQ NO Normal [facility] Comment on above: Performed By: #### C BC ####[facility] Vtydeqlihe9712 [place] [phone]. Farhat Leal MCH (RBC) [Entitic mass] 29.9 pg Normal 25.9-34.[address] [facility] Comment on above: Performed By: #### C BC ####[facility] Wglndbdxne99[address] [place], [place] [address]Dr. Farhat Leal MCHC (RBC) [Mass/Vol] 32.2 g/dL Normal 29.9-35.[address] [facility] Comment on above: Performed By: #### C BC ####[facility] [address]umjdqty[address] [place], [place] [id number]. Farhat Leal MCV (RBC) [Entitic vol] 92.9 fL Normal 80.0-94.[address] [facility] Comment on above: Performed By: #### C BC ####[facility] Jhdkifitzl20[address] [place], [place] [address]Dr. Farhat Leal MONO # 1.3 103/ul Critically high 0.3-0.[address] [facility] Comment on above: Performed By: #### C BC ####[facility] Mlduzkayur[address] [place], [place] [address]Dr. Farhat Lela Monocytes/100 WBC (Bld) 9.6 % Normal 1.7-12.[address] [facility] Comment on above: Performed By: #### C BC ####[facility] Oddhsnokej[address] [place], [place] [address]Dr. Farhat Leal NEUT # 11.4 103/ul Critically high 1.4-6.5 [facility] Comment on above: Performed By: #### C BC ####[facility] Oochplhdoz[address] [place], [place] [address]Dr. Farhat Leal Neutrophils/100 WBC (Bld) 83.9 % Critically high 43.0-75.[address] [facility] Comment on above: Performed By: #### C BC ####[facility] Lwtjmjzkyc[address] [place], [place] [address]Dr. Farhat Leal Platelet mean volume (Bld) [Entitic vol] 9.6 fL Normal 9.5-13.[address] [facility] Comment on above: Performed By: #### C BC ####[facility] Lrobudxyof7391 [place] [phone]. Farhat Leal PLT 395 103/ul Normal 150-450 [facility] Comment on above: Performed By: #### C BC ####[facility] Omkgiyasrl8338 [place] [phone]. Farhat Leal RBC 2.94 106/ul Critically low 4.70-6.[address] [facility] Comment on above: Performed By: #### C BC ####[facility] Thvukkyvjd1850 [place] [phone]. Farhat Leal WBC 13.6 103/ul Critically high 4.0-11.0 [facility] Comment on above: Performed By: #### C BC ####[facility] Gkzsjddmjg9538 [place] [address]Dr. Madelynlorri Leal CRPon 11-26-2021 CRP [Mass/Vol] mg/L Critically high <=1.0 [facility] Comment on above: Performed By: #### B SAFETY MANAGER, CRP, CMP ####[facility] Cxvbzxldsh5333 [place] [address]Dr. Farhat Leal PROF 14(COMP METB)on 022 Albumin [Mass/Vol] 1.5 g/dL Critically low 3.4-5.0 [facility] Comment on above: Performed By: #### B SAFETY MANAGER, CRP, CMP ####[facility] Euypadrzxr1455 [place] [address]Dr. Farhat Leal Albumin/Globulin [Mass ratio] 0.4 {ratio} Normal [facility] Comment on above: Performed By: #### B SAFETY MANAGER, CRP, CMP ####[facility] Zskyqnegkf1601 [place] [address]Dr. Farhat Leal ALP [Catalytic activity/Vol] 88 U/L Normal 46-116 [facility] Comment on above: Performed By: #### B SAFETY MANAGER, CRP, CMP ####[facility] Twqgcgdqcz7032 [place] [address]Dr. Farhat Leal ALT [Catalytic activity/Vol] 29 U/L Normal 16-63 [facility] Comment on above: Performed By: #### B SAFETY MANAGER, CRP, CMP ####[facility] Fnncnzfiml4598 [place] [address]Dr. Farhat Leal Anion gap [Moles/Vol] 13.3 mmol/L Normal [facility] Comment on above: Performed By: #### B SAFETY MANAGER, CRP, CMP ####[facility] Bdosuphnnv[address] [place], [place] [address]Dr. Farhat Leal AST [Catalytic activity/Vol] 32 U/L Normal 15-37 [facility] Comment on above: Performed By: #### B SAFETY MANAGER, CRP, CMP ####[facility] Bkyvvyesdl[address] [place], [place] [address]Dr. Farhat Leal Bilirubin [Mass/Vol] 0.6 mg/dL Normal 0.2-1.0 [facility] Comment on above: Performed By: #### B SAFETY MANAGER, CRP, CMP ####[facility] Gscajptgnf[address] [place], [place] [address]Dr. Farhat Leal Calcium [Mass/Vol] 8.0 mg/dL Critically low 8.5-10.1 [facility] Comment on above: Performed By: #### B SAFETY MANAGER, CRP, CMP ####[facility] [address]lyrofhsje[address] [place], [place] [address]Dr. Farhat Leal Chloride [Moles/Vol] 98 mmol/L Normal 98-107 [facility] Comment on above: Performed By: #### B SAFETY MANAGER, CRP, CMP ####[facility] Oymeefqoef[address] [place], [place] [address]Dr. Farhat Leal CO2 [Moles/Vol] 23.7 mmol/L Normal 21.0-32.0 [facility] Comment on above: Performed By: #### B SAFETY MANAGER, CRP, CMP ####[facility] [address]wlfuzkhuq[address] [place], [place] [address]Dr. Farhat Leal Creatinine [Mass/Vol] 2.08 mg/dL Critically high 0.70-1.30 [facility] Comment on above: Performed By: #### B SAFETY MANAGER, CRP, CMP ####[facility] Imqnzygvik7980 [place] [address]Dr. Farhat Leal EGFR-AF [place]IZ[place] 38 mL/min/1.73m2 Critically low >=60 [facility] Comment on above: Performed By: #### B SAFETY MANAGER, CRP, CMP ####[facility] Ytfadwahcv0431 [place] [address]Dr. Farhat Leal EGFR-NON AF CITIZEN OF [place] 31 mL/min/1.73m2 Critically low >=60 [facility] Comment on above: Performed By: #### B SAFETY MANAGER, CRP, CMP ####[facility] Acxyiqfymo9832 [place] [address]Dr. Farhat Leal Globulin (S) [Mass/Vol] 3.7 g/dL Normal [facility] Comment on above: Performed By: #### B SAFETY MANAGER, CRP, CMP ####[facility] Tcxdketcex[address] [place], [place] [address]Dr. Farhat Elvis Glucose [Mass/Vol] 315 mg/dL Critically high 74-106 [facility] Comment on above: Performed By: #### B SAFETY MANAGER, CRP, CMP ####[facility] Ulchftcffj[address] [place], [place] [address]Dr. Farhat Leal Potassium [Moles/Vol] 4.0 mmol/L Normal 3.5-5.1 [facility] Comment on above: Performed By: #### B SAFETY MANAGER, CRP, CMP ####[facility] Ornhcyecxk[address] [place], [place] [address]Dr. Farhat Leal Protein [Mass/Vol] 5.2 g/dL Critically low 6.4-8.2 [facility] Comment on above: Performed By: #### B SAFETY MANAGER, CRP, CMP ####[facility] Jchtprjgqw[address] [place], [place] [address]Dr. Farhat Leal Sodium [Moles/Vol] 131 mmol/L Critically low 136-145 [facility] Comment on above: Performed By: #### B SAFETY MANAGER, CRP, CMP ####[facility] Fmhtqlitfn[address] [place], [place] [address]Dr. Farhat Leal Urea nitrogen [Mass/Vol] 50.0 mg/dL Critically high 7.0-18.0 [facility] Comment on above: Performed By: #### B SAFETY MANAGER, CRP, CMP ####[facility] Gdvwrwalxo[address] [place], [place] [address]Dr. Farhat Leal Urea nitrogen/Creatinine [Mass ratio] 24.0 mg/mg Normal [facility] Comment on above: Performed By: #### B SAFETY MANAGER, CRP, CMP ####[facility] Lvyloywavb[address] [place], [place] [address]Dr. Farhat Leal PROTIMEon 11-26-2021 INR Coag (PPP) [Relative time] 1.31 {INR} Normal [facility] Comment on above: Performed By: #### P T ####[facility] Yufzfqttti[address] [place], [place] [address]Dr. Farhat Leal INR GUIDELINES SEE BELOW Normal [facility] Comment on above: Result Comment: MALINA RED INR: 2.0 - 3.0 CONDITIONS NOT LISTED BELOW 2.5 - 3.5 FOR PROSTHETIC HEART VALVE REPLACEMENT 2.5 - 3.5 RECURRENT THROMBOSIS Performed By: #### P T ####[facility] Newzexmdxa9[address] [place], [place] [address]Dr. Farhat Leal PT Coag (PPP) [Time] 13.9 s Critically high 9.0-11.6 [facility] Comment on above: Performed By: #### P T ####[facility] [address]ioviexlg[address] [place], [place] [address]Dr. Farhat Leal SED RATE WESTERGRENon 2021 SED RATE 87 mm/hr Critically high <=20 [facility] Comment on above: Performed By: #### S EDR ####[facility] [address]xvhpwo[address] [place], [place] [address]Dr. Farhat Leal BNPon 11-25-2021 Natriuretic peptide B (Bld) [Mass/Vol] 90822.0 pg/mL Critically high <=1,800.0 [facility] Comment on above: Performed By: #### C MP, BNP, CRP ####[facility] Omibxnonpx[address] [place], [place] [address]Dr. Farhat Leal CBC AUTO DIFFon 11-25-2021 BASO # 0.0 103/ul Normal 0.0-0.[address] [facility] Comment on above: Performed By: #### C BC ####[facility] Ytqovovblk8473 [place] [address]Dr. Farhat Leal Basophils/100 WBC (Bld) 0.4 % Normal 0.2-2.[address] [facility] Comment on above: Performed By: #### C BC ####[facility] Qpcovaejbt9162 [place] [address]Dr. Farhat Leal EO # 0.1 103/ul Normal 0.0-0.[address] [facility] Comment on above: Performed By: #### C BC ####[facility] Pyrdittygd[address] [place], [place] [address]Dr. Farhat Leal Eosinophils/100 WBC (Bld) 1.2 % Normal 0.9-7.[address] [facility] Comment on above: Performed By: #### C BC ####[facility] Tlpnljsxal[address] [place], [place] [address]Dr. Farhat Leal Erythrocyte distribution width (RBC) [Ratio] 13.7 % Normal 11.0-15.0 [facility] Comment on above: Performed By: #### C BC ####[facility] [address]tfgfxuzni[address] [place], [place] [address]Dr. Farhat Leal Hematocrit (Bld) [Volume fraction] 29.6 % Critically low 42.0-54.0 [facility] Comment on above: Performed By: #### C BC ####[facility] Fknvxqcvtz[address] [place], [place] [address]Dr. Farhta Leal Hemoglobin (Bld) [Mass/Vol] 9.3 g/dL Critically low 14.0-18.[address] [facility] Comment on above: Performed By: #### C BC ####[facility] [address]rrilnvr[address] [place], [place] [address]Dr. Farhat Leal IG # 0.15 10e3/ul Critically high 0.00-0.03 [facility] Comment on above: Performed By: #### C BC ####[facility] Tnpxnnrrik9177 [place] [id number]. Farhat Leal IG % 1.4 % Critically high 0.0-0.[address] [facility] Comment on above: Performed By: #### C BC ####[facility] Zuicbmftns4142 [place] [address]Dr. Farhat Elvis LYMPH # 0.8 103/ul Critically low 1.2-3.8 [facility] Comment on above: Performed By: #### C BC ####[facility] Gdfdvqhftb1708 [place] [address]Dr. Farhat Elvis Lymphocytes/100 WBC (Bld) 7.3 % Critically low 20.5-60.[address] [facility] Comment on above: Performed By: #### C BC ####[facility] Vcfoxhxnnf2825 [place] [address]Dr. Farhat Leal MANUAL DIFF REQ NO Normal [facility] Comment on above: Performed By: #### C BC ####[facility] Zayroaxvzd5189 [place] [address]Dr. Farhat Leal MCH (RBC) [Entitic mass] 29.3 pg Normal 25.9-34.[address] [facility] Comment on above: Performed By: #### C BC ####[facility] [address]fcconbst[address] [place], [place] [address]Dr. Farhat Leal MCHC (RBC) [Mass/Vol] 31.4 g/dL Normal 29.9-35.[address] [facility] Comment on above: Performed By: #### C BC ####[facility] Kwwmikaosv5067 [place] [address]Dr. Farhat Elvis MCV (RBC) [Entitic vol] 93.4 fL Normal 80.0-94.[address] [facility] Comment on above: Performed By: #### C BC ####[facility] [address]pc[address]qmu[address] [place], [place] [address]Dr. Madelynlorri Elvis MONO # 1.3 103/ul Critically high 0.3-0.[address] [facility] Comment on above: Performed By: #### C BC ####[facility] Mbwqsnjaqh[address] [place] [address]Dr. Farhat Leal Monocytes/100 WBC (Bld) 12.3 % Critically high 1.7-12.[address] [facility] Comment on above: Performed By: #### C BC ####[facility] Vbipzpuoak[address] [place] [address]Dr. Farhat Leal NEUT # 8.4 103/ul Critically high 1.4-6.[address] [facility] Comment on above: Performed By: #### C BC ####[facility] Hmrjuigtfr8[address] [place] [address]Dr. Farhat Leal Neutrophils/100 WBC (Bld) 77.4 % Critically high 43.0-75.[address] [facility] Comment on above: Performed By: #### C BC ####[facility] Bclppyugdv[address] [place], [place] [address]Dr. Farhat Leal Platelet mean volume (Bld) [Entitic vol] 9.8 fL Normal 9.5-13.[address] [facility] Comment on above: Performed By: #### C BC ####[facility] Gdruaxwxtc[address] [place], [place] [address]Dr. Farhat Leal PLT 390 103/ul Normal 150-[address] [facility] Comment on above: Performed By: #### C BC ####[facility] Slxmvzzjqc8[address] [place], [place] [address]Dr. Farhat Leal RBC 3.17 106/ul Critically low 4.70-6.[address] [facility] Comment on above: Performed By: #### C BC ####[facility] Drqucpzdor[address] [place], [place] [address]Dr. Farhat Leal WBC 10.9 103/ul Normal 4.0-11.[address] [facility] Comment on above: Performed By: #### C BC ####[facility] Uucompqlfc[address] [place], [place] [address]Dr. Farhat Leal CRPon 11-25-2021 CRP 27.2 mg/dL Critically high <=1.[address] [facility] Comment on above: Performed By: #### C MP, BNP, CRP ####[facility] Drspnxaamc[address] [place] [address]Dr. Farhat Leal PROF 14(COMP METB)on 022 Albumin [Mass/Vol] 1.5 g/dL Critically low 3.4-5.0 [facility] Comment on above: Performed By: #### C MP, BNP, CRP ####[facility] Ucsdcnjccf[address] [place] [address]Dr. Farhat Leal Albumin/Globulin [Mass ratio] 0.4 {ratio} Normal [facility] Comment on above: Performed By: #### C MP, BNP, CRP ####[facility] Wbndbtytji0218 [place] [address]Dr. Farhat Leal ALP [Catalytic activity/Vol] 86 U/L Normal 46-116 [facility] Comment on above: Performed By: #### C MP, BNP, CRP ####[facility] Gxevmbvezl48[address] [place], [place] [address]Dr. Farhat Leal ALT [Catalytic activity/Vol] 34 U/L Normal 16-63 [facility] Comment on above: Performed By: #### C MP, BNP, CRP ####[facility] Uzerrgsmty42[address] [place] [address]Dr. Farhat Leal Anion gap [Moles/Vol] 17.8 mmol/L Normal [facility] Comment on above: Performed By: #### C MP, BNP, CRP ####[facility] Pqeghxummb50[address] [place] [address]Dr. Farhat Leal AST [Catalytic activity/Vol] 48 U/L Critically high 15-37 [facility] Comment on above: Performed By: #### C MP, BNP, CRP ####[facility] Ffonuitqfv1756 [place] [address]Dr. Farhat Leal Bilirubin [Mass/Vol] 0.8 mg/dL Normal 0.2-1.0 [facility] Comment on above: Performed By: #### C MP, BNP, CRP ####[facility] Ddutdrtqld0307 [place] [address]Dr. Farhat Leal Calcium [Mass/Vol] 8.3 mg/dL Critically low 8.5-10.[address] [facility] Comment on above: Performed By: #### C MP, BNP, CRP ####[facility] Bbmvvlmplq408[address] [place], [place] [address]Dr. Farhat Leal Chloride [Moles/Vol] 97 mmol/L Critically low 98-107 [facility] Comment on above: Performed By: #### C MP, BNP, CRP ####[facility] Ntqmckzhla[address] [place], [place] [address]Dr. Farhat Leal CO2 [Moles/Vol] 23.0 mmol/L Normal 21.0-32.0 [facility] Comment on above: Performed By: #### C MP, BNP, CRP ####[facility] Lzbwjfkjqv[address] [place], [place] [address]Dr. Farhat Leal Creatinine [Mass/Vol] 1.68 mg/dL Critically high 0.70-1.30 [facility] Comment on above: Performed By: #### C MP, BNP, CRP ####[facility] Uwehnnkcjc[address] [place], [place] [address]Dr. Farhat Leal EGFR-AF CITIZEN OF [place] 48 mL/min/1.73m2 Critically low >=60 [facility] Comment on above: Performed By: #### C MP, BNP, CRP ####[facility] Kybkujnfry275[address] [place], [place] [address]Dr. Farhat Leal EGFR-NON AF CITIZEN OF [place] 40 mL/min/1.73m2 Critically low >=60 [facility] Comment on above: Performed By: #### C MP, BNP, CRP ####[facility] Pskcsqjgik842[address] [place], [place] [address]Dr. Farhat Leal Globulin (S) [Mass/Vol] 3.9 g/dL Normal [facility] Comment on above: Performed By: #### C MP, BNP, CRP ####[facility] Czmjejnemq7457[address] [place], [place] [address]Dr. Madelynlorri Elvis Glucose [Mass/Vol] 282 mg/dL Critically high 74-106 [facility] Comment on above: Performed By: #### C MP, BNP, CRP ####[facility] Zzebxbfkfq9267 [place] [address]Dr. Madelynlorri Leal Potassium [Moles/Vol] 4.8 mmol/L Normal 3.5-5.1 [facility] Comment on above: Performed By: #### C MP, BNP, CRP ####[facility] Dpmmtharlv9391 [place] [address]Dr. Farhat Leal Protein [Mass/Vol] 5.4 g/dL Critically low 6.4-8.2 [facility] Comment on above: Performed By: #### C MP, BNP, CRP ####[facility] Ryiolejaav3643 [place] [address]Dr. Farhat Leal Sodium [Moles/Vol] 133 mmol/L Critically low 136-145 [facility] Comment on above: Performed By: #### C MP, BNP, CRP ####[facility] Kjlkjksmjb02[address] [place], [place] [address]Dr. Farhat Leal Urea nitrogen [Mass/Vol] 40.0 mg/dL Critically high 7.0-18.0 [facility] Comment on above: Performed By: #### C MP, BNP, CRP ####[facility] Fsumeccgoq4947[address] [place], [place] [address]Dr. Farhat Leal Urea nitrogen/Creatinine [Mass ratio] 23.8 mg/mg Normal [facility] Comment on above: Performed By: #### C MP, BNP, CRP ####[facility] Agbclywzjr[address] [place], [place] [address]Dr. Farhat Leal PROTIMEon 11-25-2021 INR Coag (PPP) [Relative time] 1.48 {INR} Normal [facility] Comment on above: Performed By: #### P T ####[facility] Gdwilzisge17[address] [place], [place] [address]Dr. Farhat Leal INR GUIDELINES SEE BELOW Normal [facility] Comment on above: Result Comment: MALINA RED INR: 2.0 - 3.0 CONDITIONS NOT LISTED BELOW 2.5 - 3.5 FOR PROSTHETIC HEART VALVE REPLACEMENT 2.5 - 3.5 RECURRENT THROMBOSIS Performed By: #### P T ####[facility] Tkxwsiswdd4[address] [place], [place] [address]Dr. Farhat Leal PT Coag (PPP) [Time] 15.6 s Critically high 9.0-11.[address] [facility] Comment on above: Performed By: #### P T ####[facility] Bjhpgpfsik1725[address] [place], [place] [address]Dr. Farhat Leal SED RATE WESTERGRENon 2021 SED RATE 76 mm/hr Critically high <=[address] [facility] Comment on above: Performed By: #### S EDR ####[facility] Ystwuxqqrx7[address] [place], [place] [address]Dr. Madelynlorri Leal BNPon 11-24-2021 Natriuretic peptide B (Bld) [Mass/Vol] 78205.0 pg/mL Critically high <=1,800.[address] [facility] Comment on above: Performed By: #### B SAFETY MANAGER, CMP, CRP ####[facility] Zkdodwqyeb634[address] [place], [place] [address]Dr. Farhat Leal CBC AUTO DIFFon 11-24-2021 BASO # 0.0 103/ul Normal 0.0-0.1 [facility] Comment on above: Performed By: #### C BC ####[facility] Sbfkekpgcj5500[address] [place], [place] [address]Dr. Farhat Leal Basophils/100 WBC (Bld) 0.3 % Normal 0.2-2.[address] [facility] Comment on above: Performed By: #### C BC ####[facility] Qvjzwlycnl049[address] [place], [place] [address]Dr. Farhat Leal EO # 0.2 103/ul Normal 0.0-0.[address] [facility] Comment on above: Performed By: #### C BC ####[facility] Fphrvqyuwu916[address] [place], [place] [address]Dr. Farhat Leal Eosinophils/100 WBC (Bld) 1.2 % Normal 0.9-7.[address] [facility] Comment on above: Performed By: #### C BC ####[facility] Fhwntvtofd[address] [place], [place] [address]Dr. Farhat Leal Erythrocyte distribution width (RBC) [Ratio] 13.5 % Normal 11.0-15.0 [facility] Comment on above: Performed By: #### C BC ####[facility] Fuxdhipfeo6465 [place] [address]DrSkylar Leal Hematocrit (Bld) [Volume fraction] 31.1 % Critically low 42.0-54.0 [facility] Comment on above: Performed By: #### C BC ####[facility] Czarsrkvml018[address] [place], [place] [address]DrSkylar Leal Hemoglobin (Bld) [Mass/Vol] 10.0 g/dL Critically low 14.0-18.0 [facility] Comment on above: Performed By: #### C BC ####[facility] Jcsribnats3[address] [place], [place] [address]DrSkylar Leal IG # 0.13 10e3/ul Critically high 0.00-0.03 [facility] Comment on above: Performed By: #### C BC ####[facility] Tacuowpcgs646[address] [place], [place] [address]DrSkylar Leal IG % 1.0 % Critically high 0.0-0.5 [facility] Comment on above: Performed By: #### C BC ####[facility] Tncwgtlkwb[address] [place], [place] [address]DrSkylar Leal LYMPH # 0.7 103/ul Critically low 1.2-3.8 [facility] Comment on above: Performed By: #### C BC ####[facility] Jgznukqmtp9[address] [place], [place] [address]DrSkylar Leal Lymphocytes/100 WBC (Bld) 4.9 % Critically low 20.5-60.[address] [facility] Comment on above: Performed By: #### C BC ####[facility] Cyufowqonl7540[address] [place], [place] [address]DrSkylar Leal MANUAL DIFF REQ NO Normal [facility] Comment on above: Performed By: #### C BC ####[facility] Dzxkvtcyuu694[address] [place], [place] [address]DrSkylar Leal MCH (RBC) [Entitic mass] 29.6 pg Normal 25.9-34.[address] [facility] Comment on above: Performed By: #### C BC ####[facility] [address]ypuwkodef[address] [place] [address]Dr. Farhat Leal MCHC (RBC) [Mass/Vol] 32.2 g/dL Normal 29.9-35.[address] [facility] Comment on above: Performed By: #### C BC ####[facility] Maswrqwgns3643 [place] [address]Dr. Farhat Leal MCV (RBC) [Entitic vol] 92.0 fL Normal 80.0-94.[address] [facility] Comment on above: Performed By: #### C BC ####[facility] Pauxfhpoee12[address] [place], [place] [address]DrSkylar Leal MONO # 1.3 103/ul Critically high 0.3-0.[address] [facility] Comment on above: Performed By: #### C BC ####[facility] Hajdcwttyu[address] [place], [place] [address]Dr. Farhat Leal Monocytes/100 WBC (Bld) 9.6 % Normal 1.7-12.[address] [facility] Comment on above: Performed By: #### C BC ####[facility] Pszfxjhehc[address] [place], [place] [address]DrSkylar Leal NEUT # 11.2 103/ul Critically high 1.4-6.5 [facility] Comment on above: Performed By: #### C BC ####[facility] Klvsaafxom98[address] [place], [place] [address]Dr. Farhat Leal Neutrophils/100 WBC (Bld) 83.0 % Critically high 43.0-75.[address] [facility] Comment on above: Performed By: #### C BC ####[facility] Gdjawdvydd414[address] [place], [place] [address]DrSkylar Leal Platelet mean volume (Bld) [Entitic vol] 9.5 fL Normal 9.5-13.[address] [facility] Comment on above: Performed By: #### C BC ####[facility] Oouhnsuihm[address] [place], [place] [address]Dr. Farhat Leal PLT 395 103/ul Normal 150-[address] [facility] Comment on above: Performed By: #### C BC ####[facility] Bxrrifuhpf6[address] [place] [id number]. Farhat Leal RBC 3.38 106/ul Critically low 4.70-6.[address] [facility] Comment on above: Performed By: #### C BC ####[facility] Zntvscriay5[address] [place] [address]Dr. Farhat Leal WBC 13.4 103/ul Critically high 4.0-11.0 [facility] Comment on above: Performed By: #### C BC ####[facility] Efosgujdkb5487 [place] [address]Dr. Farhat Leal CRPon 11-24-2021 CRP 27.8 mg/dL Critically high <=1.[address] [facility] Comment on above: Performed By: #### B SAFETY MANAGER, CMP, CRP ####[facility] Dsfjdzvevu4682 [place] [phone]. Farhat Leal CULTURE ANAEROBICon 11-25-19 22 CULTURE ANAEROBIC Culture Observations : NO GROWTH OF ANAEROBES AT 72 HOURS. [facility] Comment on above: Performed By: #### A NACX ####[facility] [address]rjuympjna[address] [place] [phone]. Farhat Leal CULTURE ANAEROBIC Culture Observations : NO GROWTH OF ANAEROBES AT 72 HOURS. [facility] Comment on above: Performed By: #### A NACX ####[facility] Cnncqtwovb9722 [place] [phone]. Farhat Leal CULTURE ANAEROBIC Culture Observations : No growth of anaerobes at 72 hours. [facility] Comment on above: Performed By: #### A NACX ####[facility] Tfmlfucntd6192 [place] [phone]. Farhat Leal CULTURE ANAEROBIC Culture Observations : No growth of anaerobes at 72 hours. [facility] Comment on above: Performed By: #### A NACX ####[facility] [address]cisqxevit[address] [place], [place] [address]Dr. Farhat Leal CULTURE URINEon 11-24-2021 CULTURE URINE Culture Observations : NO GROWTH. Normal [facility] Comment on above: Performed By: #### U RCX ####[facility] Tmpdvrrghe[address] [place], [place] [address]Dr. Madelynlorri Leal ECHOCARDIO M/2D COMPLETEon 1 ECHOCARDIO M/2D COMPLETE Normal [facility] ER URINE PROFILEon Bilirubin Ql (U) Negative Normal NEGATIVE [facility] Comment on above: Performed By: #### E RUR ####[facility] Rjaizdtyts8[address] [place], [place] [address]Dr. Farhat Leal Clarity (U) CLEAR Normal CLEAR [facility] Comment on above: Performed By: #### E RUR ####[facility] [address]pupjgkfdg[address] [place], [place] [address]Dr. Farhat Leal Color (U) YELLOW Normal YELLOW [facility] Comment on above: Performed By: #### E RUR ####[facility] Cxnqlwpcib50[address] [place], [place] [address]Dr. Farhat Leal ERUAHD A micrscopic examination will be performed if indicated. Normal [facility] Comment on above: Performed By: #### E RUR ####[facility] Yiwtkfqrhr396[address] [place], [place] [address]Dr. Farhat Leal Glucose Ql (U) Negative Normal NEGATIVE [facility] Comment on above: Performed By: #### E RUR ####[facility] Hzsepmdhip0064[address] [place], [place] [address]Dr. Madelynlorri Elvis Hemoglobin Ql (U) Negative Normal NEGATIVE [facility] Comment on above: Performed By: #### E RUR ####[facility] Prwwciusce060[address] [place], [place] [address]Dr. Farhat Leal Ketones Ql (U) TRACE Abnormal NEGATIVE [facility] Comment on above: Performed By: #### E RUR ####[facility] Benueoecjk[address] [place], [place] [address]Dr. Farhat Leal LEUKOCYTES Negative Normal NEGATIVE [facility] Comment on above: Performed By: #### E RUR ####[facility] Tciqivxtzx0911 [place] [address]Dr. Farhat Leal Nitrite Ql (U) Negative Normal NEGATIVE [facility] Comment on above: Performed By: #### E RUR ####[facility] Bvdamcejze3911 [place] [address]Dr. Farhat Leal pH (U) 5.5 [pH] Normal 5-[address] [facility] Comment on above: Performed By: #### E RUR ####[facility] Bbgwdzygsa[address] [place], [place] [address]Dr. Farhat Leal SPEC GRAVITY 1.015 Normal 1.005-<=1.02 5 [facility] Comment on above: Performed By: #### E RUR ####[facility] Svkpppdqdx[address] [place], [place] [address]Dr. Farhat Leal UA PROTEIN Negative Normal NEGATIVE/ TRACE [facility] Comment on above: Performed By: #### E RUR ####[facility] Xpkazsauuq034[address] [place], [place] [address]Dr. Farhat Leal UR MICRO IND NOT INDICATED Normal [facility] Comment on above: Performed By: #### E RUR ####[facility] Idmveiwsrc06[address] [place], [place] [address]Dr. Farhat Leal Urobilinogen Qn (U) 0.2 {Boyd'U}/dL Normal 0.2 - 1. 0 [facility] Comment on above: Performed By: #### E RUR ####[facility] Ktvoyiyyby[address] [place], [place] [address]Dr. Farhat Leal GRAM STAINon 11-24-[address] [facility] Comment on above: Performed By: #### G STAIN ####[facility] Exqhgezzfu9[address] [place], [place] [address]Dr. Farhat Leal EPITHELIALS Normal [facility] Comment on above: Performed By: #### G STAIN ####[facility] Dpcoyeswxt[address] [place], [place] [address]Dr. Farhat Leal FUNGAL ELEMENTS Normal [facility] Comment on above: Performed By: #### G STAIN ####[facility] Jzureysudo11[address] [place] [address]Dr. Farhat Leal GRAM NEG BACILLI Normal [facility] Comment on above: Performed By: #### G STAIN ####[facility] Jgjayhkxfu6890 [place] [address]Dr. Farhat Leal GRAM NEG DIPPLOCOCCI Normal [facility] Comment on above: Performed By: #### G STAIN ####[facility] Qppzpxumem4124 [place] [address]Dr. Farhat Leal GRAM POS BACILLI Normal [facility] Comment on above: Performed By: #### G STAIN ####[facility] Fztkxyrboo[address] [place], [place] [address]Dr. Farhat Leal GRAM POSITIVE COCCI FEW Normal [facility] Comment on above: Performed By: #### G STAIN ####[facility] Daosnupeov[address] [place], [place] [address]Dr. Farhat Leal GRAM STAIN SOURCE RT ACHILLES TENDON Normal [facility] Comment on above: Performed By: #### G STAIN ####[facility] Nkpxjizeie3[address] [place] [address]Dr. Farhat Leal GS_DIPTH Normal [facility] Comment on above: Performed By: #### G STAIN ####[facility] Diiwnipqpt7047 [place] [address]Dr. Farhat Leal WBC RARE Normal [facility] Comment on above: Performed By: #### G STAIN ####[facility] Yxrxylqbre4915 [place] [address]Dr. Farhat Leal COMMENTS NO ORGANISMS OBSERVED Normal [facility] Comment on above: Performed By: #### G STAIN ####[facility] Wxonvjlbfo0626 [place] [address]Dr. Farhat Leal DIPHTHEROIDS Normal [facility] Comment on above: Performed By: #### G STAIN ####[facility] Getbgrkexv7478 [place] [address]Dr. Farhat Leal EPITHELIALS Normal [facility] Comment on above: Performed By: #### G STAIN ####[facility] Cojepecsqz66[address] [place] [phone]. Farhat Leal FUNGAL ELEMENTS Normal [facility] Comment on above: Performed By: #### G STAIN ####[facility] Poflvedcsk3131 [place] [address]Dr. Farhat Leal GRAM NEG BACILLI Normal [facility] Comment on above: Performed By: #### G STAIN ####[facility] Pszwuzjphz6384 [place] [address]Dr. Farhat Leal GRAM NEG DIPPLOCOCCI Normal [facility] Comment on above: Performed By: #### G STAIN ####[facility] Ibayepycdz8337 [place] [address]Dr. Farhat Leal GRAM POS BACILLI Normal [facility] Comment on above: Performed By: #### G STAIN ####[facility] Yfxhscxhts8875 [place] [address]Dr. Farhat Leal GRAM POSITIVE COCCI Normal [facility] Comment on above: Performed By: #### G STAIN ####[facility] Frvzgnjjio2674 [place] [address]Dr. Farhat Leal GRAM STAIN SOURCE RT CALCANEOUS Normal [facility] Comment on above: Performed By: #### G STAIN ####[facility] Hmecfzyjwz1489 [place] [address]Dr. Farhat Leal GS_DIPTH Normal [facility] Comment on above: Performed By: #### G STAIN ####[facility] Dpopkjbjio8162 [place] [address]Dr. Farhat Leal WBC RARE Normal [facility] Comment on above: Performed By: #### G STAIN ####[facility] Ilosmxdcer3399 [place] [address]Dr. Farhat Leal DIPHTHEROIDS Normal [facility] Comment on above: Performed By: #### G STAIN ####[facility] Nzkyamplvp3470 [place] [address]Dr. Farhat Leal EPITHELIALS Normal [facility] Comment on above: Performed By: #### G STAIN ####[facility] Nmzpgtxqeo6994 [place] [address]Dr. Farhat Leal FUNGAL ELEMENTS Normal [facility] Comment on above: Performed By: #### G STAIN ####[facility] Exukspmogw2477 [place] [address]Dr. Farhat Leal GRAM NEG BACILLI FEW Normal [facility] Comment on above: Performed By: #### G STAIN ####[facility] Krhzksmqnf8025 [place] [address]Dr. Farhat Leal GRAM NEG DIPPLOCOCCI Normal [facility] Comment on above: Performed By: #### G STAIN ####[facility] H[address]aircorb[address] [place], [place] [address]Dr. Farhat Leal GRAM POS BACILLI Normal [facility] Comment on above: Performed By: #### G STAIN ####[facility] Fmoawxjhnc[address] [place], [place] [address]Dr. Farhat Leal GRAM POSITIVE COCCI FEW Normal [facility] Comment on above: Performed By: #### G STAIN ####[facility] [address]qsgfjcvg[address] [place], [place] [address]Dr. Farhat Leal GRAM STAIN SOURCE #2 Rt foot abscess Normal [facility] Comment on above: Performed By: #### G STAIN ####[facility] Tr[address]xnphzkl[address] [place], [place] [address]Dr. Farhat Leal GS_DIPTH Normal [facility] Comment on above: Performed By: #### G STAIN ####[facility] Aoyfjtxyzy[address] [place], [place] [address]Dr. Farhat Leal WBC RARE Normal [facility] Comment on above: Performed By: #### G STAIN ####[facility] Vprlnuyvnq[address] [place], [place] [address]Dr. Farhat Leal DIPHTHEROIDS Normal [facility] Comment on above: Performed By: #### G STAIN ####[facility] Elisgncafp4[address] [place], [place] [address]Dr. Farhat Leal EPITHELIALS Normal [facility] Comment on above: Performed By: #### G STAIN ####[facility] Rsyxmvosvv5[address] [place], [place] [address]Dr. Farhat Leal FUNGAL ELEMENTS Normal [facility] Comment on above: Performed By: #### G STAIN ####[facility] Vxeilcwozj8250 [place] [address]Dr. Farhat Leal GRAM NEG BACILLI FEW Normal [facility] Comment on above: Performed By: #### G STAIN ####[facility] Idnlqjgyqk0304 [place] [address]Dr. Farhat Leal GRAM NEG DIPPLOCOCCI Normal [facility] Comment on above: Performed By: #### G STAIN ####[facility] Mpvdjnhynf8111 [place] [address]Dr. Farhat Leal GRAM POS BACILLI Normal [facility] Comment on above: Performed By: #### G STAIN ####[facility] [address]cfmniwlel[address] [place], [place] [address]Dr. Farhat Leal GRAM POSITIVE COCCI FEW Normal [facility] Comment on above: Performed By: #### G STAIN ####[facility] Zheemdfokl[address] [place], [place] [address]Dr. Farhat Leal GRAM STAIN SOURCE #1 Rt foot abscess Normal [facility] Comment on above: Performed By: #### G STAIN ####[facility] Hfixdttnrg[address] [place], [place] [address]Dr. Farhat Leal GS_DIPTH Normal [facility] Comment on above: Performed By: #### G STAIN ####[facility] Qsqviiykdf[address] [place], [place] [address]Dr. Farhat Leal WBC NONE SEEN Normal [facility] Comment on above: Performed By: #### G STAIN ####[facility] [address] [place], [place] [address]Dr. Farhat Leal POINT OF CARE GLUCOSEon 10-1 0-2021 Glucose [Mass/Vol] 331 mg/dL Critically high 74-106 [facility] Comment on above: Performed By: #### P OCGLUC ####[facility] [address]sapkotnpa[address] [place] [address]Dr. Farhat Leal Glucose [Mass/Vol] 236 mg/dL Critically high 74-106 [facility] Comment on above: Performed By: #### P OCGLUC ####[facility] Nrytqfswip[address] [place] [address]Dr. Farhat Leal PROF 14(COMP METB)on 022 Albumin [Mass/Vol] 1.6 g/dL Critically low 3.4-5.0 [facility] Comment on above: Performed By: #### B SAFETY MANAGER, CMP, CRP ####[facility] Rayjjwapkp[address] [place] [address]Dr. Farhat Leal Albumin/Globulin [Mass ratio] 0.4 {ratio} Normal [facility] Comment on above: Performed By: #### B SAFETY MANAGER, CMP, CRP ####[facility] Rqmionpwls98[address] [place] [address]Dr. Farhat Leal ALP [Catalytic activity/Vol] 94 U/L Normal 46-116 [facility] Comment on above: Performed By: #### B SAFETY MANAGER, CMP, CRP ####[facility] Nyycifbhij1516 [place] [address]Dr. Farhat Leal ALT [Catalytic activity/Vol] 49 U/L Normal 16-63 [facility] Comment on above: Performed By: #### B SAFETY MANAGER, CMP, CRP ####[facility] Ismmtthlco30[address] [place] [address]Dr. Farhat Leal Anion gap [Moles/Vol] 12.5 mmol/L Normal [facility] Comment on above: Performed By: #### B SAFETY MANAGER, CMP, CRP ####[facility] Rvdjurhoop78[address] [place] [address]Dr. Farhat Leal AST [Catalytic activity/Vol] 102 U/L Critically high 15-37 [facility] Comment on above: Performed By: #### B SAFETY MANAGER, CMP, CRP ####[facility] Ubjxicsoxn12[address] [place] [address]Dr. Farhat Leal Bilirubin [Mass/Vol] 0.8 mg/dL Normal 0.2-1.0 [facility] Comment on above: Performed By: #### B SAFETY MANAGER, CMP, CRP ####[facility] Ngioexhlrc5034 [place] [address]Dr. Farhat Leal Calcium [Mass/Vol] 8.4 mg/dL Critically low 8.5-10.1 [facility] Comment on above: Performed By: #### B SAFETY MANAGER, CMP, CRP ####[facility] Vltmtunitw[address] [place], [place] [address]Dr. Farhat Leal Chloride [Moles/Vol] 96 mmol/L Critically low 98-[address] [facility] Comment on above: Performed By: #### B SAFETY MANAGER, CMP, CRP ####[facility] [address]qbgfuzr[address] [place], [place] [address]Dr. Farhat Leal CO2 [Moles/Vol] 24.8 mmol/L Normal 21.0-32.0 [facility] Comment on above: Performed By: #### B SAFETY MANAGER, CMP, CRP ####[facility] Hxvur[address]ams[address] [place], [place] [address]Dr. Farhat Leal Creatinine [Mass/Vol] 1.36 mg/dL Critically high 0.70-1.30 [facility] Comment on above: Performed By: #### B SAFETY MANAGER, CMP, CRP ####[facility] Ceeovitipb[address] [place], [place] [address]Dr. Farhat Leal EGFR-AF CITIZEN OF [place] >60 Normal >=60 [facility] Comment on above: Performed By: #### B SAFETY MANAGER, CMP, CRP ####[facility] [address]beqoheq[address] [place], [place] [address]Dr. Farhat Leal EGFR-NON AF CITIZEN OF [place] 51 mL/min/1.73m2 Critically low >=[address] [facility] Comment on above: Performed By: #### B SAFETY MANAGER, CMP, CRP ####[facility] Rbyvejcyjw[address] [place], [place] [address]Dr. Farhat Elvis Globulin (S) [Mass/Vol] 4.1 g/dL Normal [facility] Comment on above: Performed By: #### B SAFETY MANAGER, CMP, CRP ####[facility] Elwmbeakpu[address] [place], [place] [address]Dr. Farhat Leal Glucose [Mass/Vol] 204 mg/dL Critically high 74-106 [facility] Comment on above: Performed By: #### B SAFETY MANAGER, CMP, CRP ####[facility] Bfhgdeeufc5437 [place] [address]Dr. Farhat Leal Potassium [Moles/Vol] 4.3 mmol/L Normal 3.5-5.1 [facility] Comment on above: Performed By: #### B SAFETY MANAGER, CMP, CRP ####[facility] Punqvtcreo6196 [place] [address]Dr. Farhat Leal Protein [Mass/Vol] 5.7 g/dL Critically low 6.4-8.2 [facility] Comment on above: Performed By: #### B SAFETY MANAGER, CMP, CRP ####[facility] Pvydnqhqik8946 [place] [address]Dr. Farhat Leal Sodium [Moles/Vol] 129 mmol/L Critically low 136-145 [facility] Comment on above: Performed By: #### B SAFETY MANAGER, CMP, CRP ####[facility] V[address]zzpudbl[address] [place], [place] [address]Dr. Farhat Leal Urea nitrogen [Mass/Vol] 41.0 mg/dL Critically high 7.0-18.0 [facility] Comment on above: Performed By: #### B SAFETY MANAGER, CMP, CRP ####[facility] Ymwheflsph[address] [place], [place] [address]Dr. Farhat Leal Urea nitrogen/Creatinine [Mass ratio] 30.1 mg/mg Normal [facility] Comment on above: Performed By: #### B SAFETY MANAGER, CMP, CRP ####[facility] Vvdcoafqpb[address] [place], [place] [address]Dr. Farhat Leal PROTIMEon 11-24-2021 INR Coag (PPP) [Relative time] 2.20 {INR} Normal [facility] Comment on above: Performed By: #### P T ####[facility] Euygc[address] [place], [place] [address]Dr. Farhat Leal INR GUIDELINES SEE BELOW Normal [facility] Comment on above: Result Comment: MALINA RED INR: 2.0 - 3.0 CONDITIONS NOT LISTED BELOW 2.5 - 3.5 FOR PROSTHETIC HEART VALVE REPLACEMENT 2.5 - 3.5 RECURRENT THROMBOSIS Performed By: #### P T ####[facility] Gxllzjlcmq[address] [place], [place] [address]Dr. Farhat Leal PT Coag (PPP) [Time] 22.6 s Critically high 9.0-11.[address] [facility] Comment on above: Performed By: #### P T ####[facility] Soghcvhbta[address] [place], [place] [address]Dr. Farhat Leal SED RATE [facility] 2021 SED RATE 80 mm/hr Critically high <=[address] [facility] Comment on above: Performed By: #### S EDR ####[facility] [address]os[address] [place], [place] [address]Dr. Farhat Leal BLOOD CULTURE ID PANELon A. baumannii Not detected Normal NOT DETECTED [facility] Comment on above: Performed By: #### B CID2 ####[facility] Olhopeeieb[address] [place], [place] [address]Dr. Farhat Elvis Bacteriodes fragilis Not detected Normal NOT DETECTED [facility] Comment on above: Performed By: #### B CID2 ####[facility] [address]pnurxjez[address] [place], [place] [address]Dr. Farhat Elvis BCID CONTROLS PASSED Normal [facility] Comment on above: Performed By: #### B CID2 ####[facility] Z[address]iowpvhc[address] [place], [place] [address]Dr. Farhat Elvis BCIDBTHD BLOOD CULTURE BOTTLE INFORMATION Normal [facility] Comment on above: Performed By: #### B CID2 ####[facility] Oixsxnuirm[address] [place], [place] [address]Dr. Farhat Leal BCIDHD1 ANTIMICROBIAL RESISTANCE GENES Normal [facility] Comment on above: Performed By: #### B CID2 ####[facility] Ohbboxfprd[address] [place], [place] [address]Dr. Farhat Leal BCIDHD2 SEE BELOW Normal [facility] Comment on above: Result Comment: Note : Antimicrobial resitance can occur via multiple mechanisms. A Not Detected result for the [employer] antomicrobial resistance gene assays does not indicate antimicrobial susceptibility. Subculturing is required for species identification and susceptibility testing of isolates. Performed By: #### B CID2 ####[facility] Nsfcqpmqya[address] [place] [id number]. Farhat Leal BCIDHD3 Positive Normal [facility] Comment on above: Performed By: #### B CID2 ####[facility] Cmjhksnwcv7508 [place] [address]Dr. Farhat Leal BCIDHD4 Negative Normal [facility] Comment on above: Performed By: #### B CID2 ####[facility] Idqajjtnhl1226 [place] [address]Dr. Farhat Leal BCIDHD5 YEAST Normal [facility] Comment on above: Performed By: #### B CID2 ####[facility] Fienpvyldf48[address] [place] [address]Dr. Farhat Leal Bottle Set: Set [address] [facility] Comment on above: Performed By: #### B CID2 ####[facility] Juscrstclk2883 [place] [address]Dr. Farhat Leal Bottle: Aerobic Normal [facility] Comment on above: Performed By: #### B CID2 ####[facility] Chfaebufew7443 [place] [address]Dr. Farhat Leal C. neoformans/gattii Not detected Normal NOT DETECTED [facility] Comment on above: Performed By: #### B CID2 ####[facility] Wfqlkygswt5518 [place] [address]Dr. Farhat Leal Disha albicans Not detected Normal NOT DETECTED [facility] Comment on above: Performed By: #### B CID2 ####[facility] Zeddbybvmb2866 [place] [address]Dr. Farhat Leal Disha auris Not detected Normal NOT DETECTED [facility] Comment on above: Performed By: #### B CID2 ####[facility] Zmgtfswapu3858 [place] [address]Dr. Farhat Leal Disha glabrata Not detected Normal NOT DETECTED [facility] Comment on above: Performed By: #### B CID2 ####[facility] Yssqmnagla4877 [place] [address]Dr. Farhat Leal Disha Krusei Not detected Normal NOT DETECTED [facility] Comment on above: Performed By: #### B CID2 ####[facility] [address] [place], [place] [address]Dr. Farhat Leal Disha Parapsilosis Not detected Normal NOT DETECTED [facility] Comment on above: Performed By: #### B CID2 ####[facility] [address]ahvzolva[address] [place], [place] [address]Dr. Yilan Leal Disha Tropicalis Not detected Normal NOT DETECTED [facility] Comment on above: Performed By: #### B CID2 ####[facility] Kemksurvgv[address] [place], [place] [address]Dr. Farhat Leal CTX-M Resistant Gene Not Applicable Normal NOT DETECTE D [facility] Comment on above: Performed By: #### B CID2 ####[facility] Yefrzusfbs[address] [place], [place] [address]Dr. Farhat Leal E. Cloacae complex Not detected Normal NOT DETECTED [facility] Comment on above: Performed By: #### B CID2 ####[facility] Hwjgkirsxg[address] [place], [place] [address]Dr. Yilorri Leal E. faecalis Not detected Normal NOT DETECTED [facility] Comment on above: Performed By: #### B CID2 ####[facility] Eusygazzhu[address] [place], [place] [address]Dr. Farhat Leal E. faecium Not detected Normal NOT DETECTED [facility] Comment on above: Performed By: #### B CID2 ####[facility] V[address]dfybdlct[address] [place], [place] [address]Dr. Yilan Leal Enterobacteriaceae Not detected Normal NOT DETECTED [facility] Comment on above: Performed By: #### B CID2 ####[facility] Hmclkfqobu[address] [place], [place] [address]Dr. Yilan Leal Escherichia coli Not detected Normal NOT DETECTED [facility] Comment on above: Performed By: #### B CID2 ####[facility] Dnuranspga[address] [place], [place] [address]Dr. Yilan Leal H. influenzae Not detected Normal NOT DETECTED [facility] Comment on above: Performed By: #### B CID2 ####[facility] Qpooqbgbne4987 [place] [address]Dr. Farhat Leal IMP Resistant Gene Not Applicable Normal NOT DETECTED [facility] Comment on above: Performed By: #### B CID2 ####[facility] Dmarvszpem2321 [place] [phone]. Madelynlorri Leal K. oxytoca Not detected Normal NOT DETECTED [facility] Comment on above: Performed By: #### B CID2 ####[facility] Nlvfhfmivl5462 [place] [address]Dr. Farhat Leal K. pneumoniae Not detected Normal NOT DETECTED [facility] Comment on above: Performed By: #### B CID2 ####[facility] L[address]xjdttos[address] [place], [place] [address]Dr. Farhat Leal Klebsiella aerogenes Not detected Normal NOT DETECTED [facility] Comment on above: Performed By: #### B CID2 ####[facility] Ghzwhaknok[address] [place], [place] [address]Dr. Farhat Leal KPC Resistant Gene Not Applicable Normal NOT DETECTED [facility] Comment on above: Performed By: #### B CID2 ####[facility] Wnsgonhojt[address] [place], [place] [address]Dr. Farhat Leal List. monocytogenes Not detected Normal NOT DETECTED [facility] Comment on above: Performed By: #### B CID2 ####[facility] [address]fqxzjdtvc[address] [place], [place] [address]Dr. Farhat Leal Mcr-1 Resistant Gene Not Applicable Normal NOT DETECTE D [facility] Comment on above: Performed By: #### B CID2 ####[facility] Iusznwsuvj5209 [place] [address]Dr. Farhat Leal mecA/C Not Applicable Normal NOT DETECTED [facility] Comment on above: Performed By: #### B CID2 ####[facility] Mujjshykzg2946 [place] [address]Dr. Farhat Leal mecA/C MREJ Detected Abnormal NOT DETECTED [facility] Comment on above: Performed By: #### B CID2 ####[facility] Ralkkgmtyw1502 [place] [address]Dr. Farhat Leal N. meningitidis Not detected Normal NOT DETECTED [facility] Comment on above: Performed By: #### B CID2 ####[facility] Hbhoauujmw[address] [place], [place] [address]Dr. Farhat Leal NDM Resistant Gene Not Applicable Normal NOT DETECTED [facility] Comment on above: Performed By: #### B CID2 ####[facility] [address]qzfsziu[address] [place], [place] [address]Dr. Farhat Leal Oxa-48-like Not Applicable Normal NOT DETECTED [facility] Comment on above: Performed By: #### B CID2 ####[facility] Koekijawgu[address] [place], [place] [address]Dr. Farhat Leal Proteus Not detected Normal NOT DETECTED [facility] Comment on above: Performed By: #### B CID2 ####[facility] Fnusdumznt[address] [place], [place] [address]Dr. Farhat Leal Pseud. aeruginosa Not detected Normal NOT DETECTED [facility] Comment on above: Performed By: #### B CID2 ####[facility] Ibqzsamdkb[address] [place], [place] [address]Dr. Farhat Leal S. maltophilia Not detected Normal NOT DETECTED [facility] Comment on above: Performed By: #### B CID2 ####[facility] Xzuounkfuq[address] [place], [place] [address]Dr. Farhat Leal Salmonella Not detected Normal NOT DETECTED [facility] Comment on above: Performed By: #### B CID2 ####[facility] Wyktdbdzow[address] [place], [place] [address]Dr. Farhat Leal Seratia marcescens Not detected Normal NOT DETECTED [facility] Comment on above: Performed By: #### B CID2 ####[facility] Kanxycjbxu[address] [place], [place] [address]Dr. Farhat Leal Site: Rt Hand Normal [facility] Comment on above: Performed By: #### B CID2 ####[facility] Jbmadxhixr[address] [place], [place] [address]Dr. Farhat Leal Staph. aureus Detected Abnormal NOT DETECTED [facility] Comment on above: Performed By: #### B CID2 ####[facility] Vrmongfbll[address] [place], [place] [address]Dr. Farhat Leal Staph. epidermidis Not detected Normal NOT DETECTED [facility] Comment on above: Performed By: #### B CID2 ####[facility] Jxlowdpddq[address] [place], [place] [address]Dr. Farhat Leal Staph. lugdunensis Not detected Normal NOT DETECTED [facility] Comment on above: Performed By: #### B CID2 ####[facility] Zenffrmrst[address] [place], [place] [address]Dr. Farhat Leal Staphylococcus Detected Abnormal NOT DETECTED [facility] Comment on above: Performed By: #### B CID2 ####[facility] [address]rdbqcllqh[address] [place], [place] [address]Dr. Farhat Leal Strep. agalactiae Not detected Normal NOT DETECTED [facility] Comment on above: Performed By: #### B CID2 ####[facility] Mgkmdvwcwa[address] [place], [place] [address]Dr. Farhat Leal Strep. pneumoniae Not detected Normal NOT DETECTED [facility] Comment on above: Performed By: #### B CID2 ####[facility] Jdczifkvxm[address] [place], [place] [address]Dr. Farhat Leal Strep. pyogenes Not detected Normal NOT DETECTED [facility] Comment on above: Performed By: #### B CID2 ####[facility] [address]iewxjavw[address] [place], [place] [address]Dr. Farhat Leal Streptococcus Not detected Normal NOT DETECTED [facility] Comment on above: Performed By: #### B CID2 ####[facility] [address]zfhzumdrn[address] [place], [place] [address]Dr. Farhat Leal Teodoro/B Resist. Gene Not Applicable Normal NOT DETECTED [facility] Comment on above: Performed By: #### B CID2 ####[facility] Dmooyiheza[address] [place], [place] [address]Dr. Farhat Leal VIM Resistant Gene Not Applicable Normal NOT DETECTED [facility] Comment on above: Performed By: #### B CID2 ####[facility] Jdwtwrmzvj5629 [place] [address]Dr. Farhat Leal BNPon 11-23-2021 Natriuretic peptide B (Bld) [Mass/Vol] 16964.0 pg/mL Critically high <=1,800.[address] [facility] Comment on above: Performed By: #### C MP, CMADM, BNP ####[facility] Ythlxzpcao5468 [place] [address]Dr. Farhat Leal CARDIAC AMANDA ADMITon 022 CK [Catalytic activity/Vol] 41 U/L Normal 39-[address] [facility] Comment on above: Performed By: #### C MP, CMADM, BNP ####[facility] Copqtgjsjx0059 [place] [address]Dr. Farhat Leal CK.MB [Mass/Vol] 0.98 ng/mL Normal <=3.60 [facility] Comment on above: Performed By: #### C MP, CMADM, BNP ####[facility] Sdcmbnbpzv7458 [place] [address]Dr. lorri Leal HSTROP 30.1 pg/mL Normal 4.0-76.[address] [facility] Comment on above: Result Comment: CUT- OFF POINTS HAVE BEEN ESTABLISHED BASED ON THE FOURTH UNIVERSAL DEFINITIONS OF MYOCARDIALINFARCTION. THE UPPER REFERENCE LIMIT (URL) OF TROPONIN, DEFINED THE 99TH PERCENTILE OFcTnI DISTRIBUTION IN A REFERENCE POPULATION, HAS BEEN CONFIRMED THE DECISION THRESHOLDFOR [place] DIAGNOSIS. Performed By: #### C MP, CMADM, BNP ####[facility] Aysrlvijlj[address] [place] [address]Dr. Farhat Leal VALERIA 160 ng/mL Critically high 16-[address] [facility] Comment on above: Performed By: #### C MP, CMADM, BNP ####[facility] Tlzimoxvgn9999 [place] [address]Dr. Farhat Leal CBC AUTO DIFFon 11-23-2021 BASO # 0.0 103/ul Normal 0.0-0.[address] [facility] Comment on above: Performed By: #### C BC ####[facility] J[address]kuevfj25[address] [place] [phone]. Farhat Leal Basophils/100 WBC (Bld) 0.2 % Normal 0.2-2.[address] [facility] Comment on above: Performed By: #### C BC ####[facility] Iarmawloqe2344 [place] [phone]. Farhat Leal EO # 0.0 103/ul Normal 0.0-0.[address] [facility] Comment on above: Performed By: #### C BC ####[facility] B[address]hj[address]oor[address] [place], [place] [address]Dr. Farhat Leal Eosinophils/100 WBC (Bld) 0.1 % Critically low 0.9-7.0 [facility] Comment on above: Performed By: #### C BC ####[facility] Qkiglboqmp[address] [place], [place] [address]Dr. Farhat Leal Erythrocyte distribution width (RBC) [Ratio] 13.4 % Normal 11.0-15.0 [facility] Comment on above: Performed By: #### C BC ####[facility] Remde[address]jwad[address] [place], [place] [address]Dr. Farhat Leal Hematocrit (Bld) [Volume fraction] 31.6 % Critically low 42.0-54.0 [facility] Comment on above: Performed By: #### C BC ####[facility] [address] [place], [place] [id number]. Farhat Leal Hemoglobin (Bld) [Mass/Vol] 10.4 g/dL Critically low 14.0-18.0 [facility] Comment on above: Performed By: #### C BC ####[facility] [address]fwblyc[address] [place], [place] [address]Dr. Farhat Leal IG # 0.11 10e3/ul Critically high 0.00-0.03 [facility] Comment on above: Performed By: #### C BC ####[facility] [address] [place], [place] [address]Dr. Farhat Leal IG % 0.7 % Critically high 0.0-0.[address] [facility] Comment on above: Performed By: #### C BC ####[facility] Cplilininj75[address] [place] [phone]. Farhat Leal LYMPH # 0.5 103/ul Critically low 1.2-3.8 [facility] Comment on above: Performed By: #### C BC ####[facility] Crotbcbqwr2082 [place] [phone]. Farhat Leal Lymphocytes/100 WBC (Bld) 2.8 % Critically low 20.5-60.0 [facility] Comment on above: Performed By: #### C BC ####[facility] Lulevfajtn[address]74 [place] [phone]. Farhat Leal MANUAL DIFF REQ NO Normal [facility] Comment on above: Performed By: #### C BC ####[facility] Iqvtzhqpjg9258 [place] [phone]. Farhat Leal MCH (RBC) [Entitic mass] 29.8 pg Normal 25.9-34.0 [facility] Comment on above: Performed By: #### C BC ####[facility] Cfzorprhgg6763 [place] [phone]. Farhat Leal MCHC (RBC) [Mass/Vol] 32.9 g/dL Normal 29.9-35.[address] [facility] Comment on above: Performed By: #### C BC ####[facility] Gdjqpblwbq9353 [place] [phone]. Farhat Leal MCV (RBC) [Entitic vol] 90.5 fL Normal 80.0-94.[address] [facility] Comment on above: Performed By: #### C BC ####[facility] Ekwvjsrfzq1080 [place] [phone] Leal MONO # 1.3 103/ul Critically high 0.3-0.[address] [facility] Comment on above: Performed By: #### C BC ####[facility] Sumxwnswpm3629 [place] [phone]. Farhat Leal Monocytes/100 WBC (Bld) 8.3 % Normal 1.7-12.[address] [facility] Comment on above: Performed By: #### C BC ####[facility] Bmzxtomavj2762 [place] [phone]. Farhat Leal NEUT # 13.9 103/ul Critically high 1.4-6.5 [facility] Comment on above: Performed By: #### C BC ####[facility] Ijjwenaqtg0454 [place] [phone] Farhat Leal Neutrophils/100 WBC (Bld) 87.9 % Critically high 43.0-75.0 [facility] Comment on above: Performed By: #### C BC ####[facility] Lgrzbdnddf2893 [place] [phone]. Farhat Leal Platelet mean volume (Bld) [Entitic vol] 9.3 fL Critically low 9.5-13.5 [facility] Comment on above: Performed By: #### C BC ####[facility] Oilpbfbdao1704 [place] [phone]. Farhat Leal PLT 390 103/ul Normal 150-450 [facility] Comment on above: Performed By: #### C BC ####[facility] Cfjfkftiet2026 [place] [phone]. Farhat Leal RBC 3.49 106/ul Critically low 4.70-6.[address] [facility] Comment on above: Performed By: #### C BC ####[facility] Bhukupzduj[address] [place] [phone]. Farhat Leal WBC 15.9 103/ul Critically high 4.0-11.0 [facility] Comment on above: Performed By: #### C BC ####[facility] Eeotwquwyz[address] [place] [phone]. Farhat Leal CT HEAD WO CONon 11-23-2021 CT HEAD WO CON Normal [facility] CULTURE BLOODon 11-23-2021 Microscopic examination of blood, culture Culture Observations: NO GROWTH AT [address] [facility] Comment on above: Performed By: #### B LDCX2 ####[facility] Hyqwwyzunt[address]108 [place] [phone]. Farhat Elvis Covid-19 PCR (CVDTBH)on SARS-CoV-2 (COVID-19) RNA JOSH+probe Ql (Unsp spec) Not detected Normal NOT DETECTED [facility] Comment on above: Result Comment: When [...] for this test is supported by the Log Manager of Health and Human Service's declaration [...] be used). Performed By: #### C VDTBH ####[facility] [address]xw[address]vjb[address] [place], [place] [address]DrSkylar Leal LACTATE/LACTIC ACIDon 2021 Lactate [Moles/Vol] 1.3 mmol/L Normal 0.4-1.9 [facility] Comment on above: Performed By: #### L ACT ####[facility] [address]hrhsxx[address] [place], [place] [address]DrSkylar Leal Lactate [Moles/Vol] 1.3 mmol/L Normal 0.4-1.9 [facility] Comment on above: Performed By: #### L ACT ####[facility] Zzyrytjvjd[address] [place], [place] [address]DrSkylar Leal POINT OF CARE GLUCOSEon Glucose [Mass/Vol] 252 mg/dL Critically high 74-106 [facility] Comment on above: Performed By: #### P OCGLUC ####[facility] Gblybqjtor[address] [place], [place] [address]Dr. Farhat Leal PROF 14(COMP METB)on 022 Albumin [Mass/Vol] 1.6 g/dL Critically low 3.4-5.0 [facility] Comment on above: Performed By: #### C MP, CMADM, BNP ####[facility] [address] [place] [address]Dr. Farhat Leal Albumin/Globulin [Mass ratio] 0.4 {ratio} Normal [facility] Comment on above: Performed By: #### C MP, CMADM, BNP ####[facility] Zthohwffug[address] [place] [address]Dr. Farhat Leal ALP [Catalytic activity/Vol] 98 U/L Normal 46-116 [facility] Comment on above: Performed By: #### C MP, CMADM, BNP ####[facility] Hbdydnidho[address] [place] [address]Dr. Farhat Leal ALT [Catalytic activity/Vol] 52 U/L Normal 16-63 [facility] Comment on above: Performed By: #### C MP, CMADM, BNP ####[facility] Cfdsfikkoa8[address] [place] [address]Dr. Farhat Leal Anion gap [Moles/Vol] 9.8 mmol/L Normal [facility] Comment on above: Performed By: #### C MP, CMADM, BNP ####[facility] Yzdklhyhdf1706 [place] [address]Dr. Farhat Leal AST [Catalytic activity/Vol] 122 U/L Critically high 15-37 [facility] Comment on above: Performed By: #### C MP, CMADM, BNP ####[facility] Gbpuljmwfs6373 [place] [address]Dr. Farhat Leal Bilirubin [Mass/Vol] 0.7 mg/dL Normal 0.2-1.0 [facility] Comment on above: Performed By: #### C MP, CMADM, BNP ####[facility] Nfftafidty46[address] [place] [address]Dr. Farhat Leal Calcium [Mass/Vol] 8.6 mg/dL Normal 8.5-10.1 [facility] Comment on above: Performed By: #### C MP, CMADM, BNP ####[facility] Anxcrbctnk4[address] [place] [address]Dr. Farhat Leal Chloride [Moles/Vol] 95 mmol/L Critically low 98-107 [facility] Comment on above: Performed By: #### C MP, CMADM, BNP ####[facility] Yzpvxdbxqb8100 [place] [address]Dr. Farhat Leal CO2 [Moles/Vol] 29.6 mmol/L Normal 21.0-32.0 [facility] Comment on above: Performed By: #### C MP, CMADM, BNP ####[facility] Pajzgrtdkp2415 [place] [address]Dr. Farhat Leal Creatinine [Mass/Vol] 1.49 mg/dL Critically high 0.70-1.30 [facility] Comment on above: Performed By: #### C MP, CMADM, BNP ####[facility] Twmzfmfrce[address] [place], [place] [address]Dr. Farhat Leal EGFR-AF CITIZEN [place] 55 mL/min/1.73m2 Critically low >=60 [facility] Comment on above: Performed By: #### C MP, CMADM, BNP ####[facility] Lglofnause[address] [place], [place] [address]Dr. Farhat Leal EGFR-NON AF CITIZEN [place] 46 mL/min/1.73m2 Critically low >=60 [facility] Comment on above: Performed By: #### C MP, CMADM, BNP ####[facility] Ateaanetjk[address] [place] [address]Dr. Farhat Leal Globulin (S) [Mass/Vol] 4.3 g/dL Normal [facility] Comment on above: Performed By: #### C MP, CMADM, BNP ####[facility] Yrenwikjrj2309 [place] [address]Dr. Farhat Leal Glucose [Mass/Vol] 213 mg/dL Critically high 74-106 [facility] Comment on above: Performed By: #### C MP, CMADM, BNP ####[facility] Fybkpmivro28[address] [place] [address]Dr. Farhat Leal Potassium [Moles/Vol] 4.4 mmol/L Normal 3.5-5.1 [facility] Comment on above: Performed By: #### C MP, CMADM, BNP ####[facility] Isfzkgfrqy8631 [place] [address]Dr. Farhat Leal Protein [Mass/Vol] 5.9 g/dL Critically low 6.4-8.2 [facility] Comment on above: Performed By: #### C MP, CMADM, BNP ####[facility] Wbcipvttnk[address] [place], [place] [address]Dr. Farhat Leal Sodium [Moles/Vol] 130 mmol/L Critically low 136-145 [facility] Comment on above: Performed By: #### C MP, CMADM, BNP ####[facility] Jqrfebaxzw90[address] [place], [place] [address]Dr. Farhat Leal Urea nitrogen [Mass/Vol] 46.0 mg/dL Critically high 7.0-18.0 [facility] Comment on above: Performed By: #### C MP, CMADM, BNP ####[facility] Gqmzkvbxpg[address] [place], [place] [address]Dr. Farhat Leal Urea nitrogen/Creatinine [Mass ratio] 30.9 mg/mg Normal [facility] Comment on above: Performed By: #### C MP, CMADM, BNP ####[facility] Ukwlpipgfe7[address] [place], [place] [address]Dr. Farhat Leal PROTIMEon 11-23-2021 INR Coag (PPP) [Relative time] 2.55 {INR} Normal [facility] Comment on above: Performed By: #### P TT, PT ####[facility] Psjichruga[address] [place], [place] [address]Dr. Farhat Leal INR GUIDELINES SEE BELOW Normal [facility] Comment on above: Result Comment: MALINA RED INR: 2.0 - 3.0 CONDITIONS NOT LISTED BELOW 2.5 - 3.5 FOR PROSTHETIC HEART VALVE REPLACEMENT 2.5 - 3.5 RECURRENT THROMBOSIS Performed By: #### P TT, PT ####[facility] Xqraqtajvn4[address] [place] [phone]. Farhat Leal PT Coag (PPP) [Time] 25.9 s Critically high 9.0-11.[address] [facility] Comment on above: Performed By: #### P TT, PT ####[facility] Iwgihqasgw0500 [place] [address]Dr. Farhat Leal PTTon 11-23-2021 aPTT Coag (Bld) [Time] 39.9 s Critically high 22.3-36. [address] [facility] Comment on above: Performed By: #### P TT, PT ####[facility] Bbmygrrwdk[address] [place], [place] [address]Dr. Farhat Leal XR CHEST 1 Von 11-23-2021 XR CHEST [address] [facility] XR HEEL RT 2Von 11-23-2021 XR HEEL RT 2V Normal [facility] XR FOOT RT MIN 3 VIEWSon XR FOOT RT MIN 3 VIEWS Normal [facility] US ARTERY LEG RTon US ARTERY LEG RT Normal [facility] CBC AUTO DIFFon 09-24-2021 BASO # 0.1 103/ul Normal 0.0-0.[address] [facility] Comment on above: Performed By: #### C BC ####[facility] Cikujrebuh[address] [place], [place] [address]Dr. Farhat Leal Basophils/100 WBC (Bld) 0.7 % Normal 0.2-2.[address] [facility] Comment on above: Performed By: #### C BC ####[facility] Gutjectgtm[address] [place], [place] [address]Dr. Farhat Leal EO # 0.3 103/ul Normal 0.0-0.[address] [facility] Comment on above: Performed By: #### C BC ####[facility] Gmgpozjikj[address] [place], [place] [address]Dr. Farhat Leal Eosinophils/100 WBC (Bld) 3.9 % Normal 0.9-7.[address] [facility] Comment on above: Performed By: #### C BC ####[facility] Bdhbxdxguj1702 [place] [address]Dr. Farhat Leal Erythrocyte distribution width (RBC) [Ratio] 12.6 % Normal 11.0-15.[address] [facility] Comment on above: Performed By: #### C BC ####[facility] Aqwuzelxaq0984 [place] [address]Dr. Frahat Leal Hematocrit (Bld) [Volume fraction] 38.9 % Critically low 42.0-54.0 [facility] Comment on above: Performed By: #### C BC ####[facility] Wfetavapgl4951 [place] [address]Dr. Farhat Leal Hemoglobin (Bld) [Mass/Vol] 12.8 g/dL Critically low 14.0-18.0 [facility] Comment on above: Performed By: #### C BC ####[facility] Aphiwglqhi[address] [place], [place] [address]Dr. Farhat Leal IG # 0.10 10e3/ul Critically high 0.00-0.03 [facility] Comment on above: Performed By: #### C BC ####[facility] Ubpdetbzmc[address] [place], [place] [address]Dr. Farhat Leal IG % 1.2 % Critically high 0.0-0.5 [facility] Comment on above: Performed By: #### C BC ####[facility] Bnqcnimjop676[address] [place], [place] [address]Dr. Farhat Leal LYMPH # 2.1 103/ul Normal 1.2-3.[address] [facility] Comment on above: Performed By: #### C BC ####[facility] Tiadshchex[address] [place], [place] [address]Dr. Farhat Leal Lymphocytes/100 WBC (Bld) 25.9 % Normal 20.5-60.[address] [facility] Comment on above: Performed By: #### C BC ####[facility] Clqhdvdhsk[address] [place], [place] [address]Dr. Farhat Leal MANUAL DIFF REQ NO Normal [facility] Comment on above: Performed By: #### C BC ####[facility] Xdnknovaea[address] [place] [phone]. Farhat Leal MCH (RBC) [Entitic mass] 31.1 pg Normal 25.9-34.[address] [facility] Comment on above: Performed By: #### C BC ####[facility] Dwbeiwjrqk6907 [place] [phone]. Farhat Leal MCHC (RBC) [Mass/Vol] 32.9 g/dL Normal 29.9-35.[address] [facility] Comment on above: Performed By: #### C BC ####[facility] Uuktyppgtd2060 [place] [phone]. Farhat Leal MCV (RBC) [Entitic vol] 94.6 fL Critically high 80.0-94.[address] [facility] Comment on above: Performed By: #### C BC ####[facility] Hfycxuzmyy[address] [place], [place] [address]Dr. Madelynlorri Leal MONO # 1.2 103/ul Critically high 0.3-0.[address] [facility] Comment on above: Performed By: #### C BC ####[facility] Nmvubnowzt[address] [place], [place] [address]Dr. Madelynlorri Leal Monocytes/100 WBC (Bld) 14.1 % Critically high 1.7-12.[address] [facility] Comment on above: Performed By: #### C BC ####[facility] Xoaaysxcrk8[address] [place], [place] [address]Dr. Farhat Leal NEUT # 4.4 103/ul Normal 1.4-6.[address] [facility] Comment on above: Performed By: #### C BC ####[facility] [address]we[address]fdxxr[address] [place], [place] [id number]. Madelynlorri Leal Neutrophils/100 WBC (Bld) 54.2 % Normal 43.0-75.[address] [facility] Comment on above: Performed By: #### C BC ####[facility] Ksdxmbervf[address] [place], [place] [address]Dr. Farhat Leal Platelet mean volume (Bld) [Entitic vol] 9.9 fL Normal 9.5-13.[address] [facility] Comment on above: Performed By: #### C BC ####[facility] Iqwmsybktn49[address] [place] [phone]. Farhat Leal PLT 224 103/ul Normal 150-450 [facility] Comment on above: Performed By: #### C BC ####[facility] Vlgbuwockq0301 [place] [phone]. Farhta Leal RBC 4.11 106/ul Critically low 4.70-6.[address] [facility] Comment on above: Performed By: #### C BC ####[facility] Nxfquqwjft3405 [place] [phone]. Farhat Elvis WBC 8.2 103/ul Normal 4.0-11.[address] [facility] Comment on above: Performed By: #### C BC ####[facility] Yhvpdrujma[address] [place], [place] [address]Dr. Farhat Leal PROF CHEM 8 (BAS METB)on Anion gap [Moles/Vol] 9.6 mmol/L Normal [facility] Comment on above: Performed By: #### B MP ####[facility] [address]ozsrgld[address] [place], [place] [address]Dr. Farhat Leal Calcium [Mass/Vol] 8.6 mg/dL Normal 8.5-10.1 [facility] Comment on above: Performed By: #### B MP ####[facility] [address]vreksxqdk[address] [place], [place] [address]Dr. Farhat Leal Chloride [Moles/Vol] 94 mmol/L Critically low 98-[address] [facility] Comment on above: Performed By: #### B MP ####[facility] Cjmqcfquvv7409 [place] [phone]. Farhat Leal CO2 [Moles/Vol] 28.1 mmol/L Normal 21.0-32.0 [facility] Comment on above: Performed By: #### B MP ####[facility] Gfujlicblg8758 [place] [phone]. Farhat Leal Creatinine [Mass/Vol] 1.91 mg/dL Critically high 0.70-1.30 [facility] Comment on above: Performed By: #### B MP ####[facility] Adlenuluiw[address] [place] [phone]. Farhat Leal EGFR-AF [place]IZ[place] 42 mL/min/1.73m2 Critically low >=60 [facility] Comment on above: Performed By: #### B MP ####[facility] Othinwuuwo[address] [place] [phone]. Farhat Leal EGFR-NON AF [place]IZ[place] 34 mL/min/1.73m2 Critically low >=60 [facility] Comment on above: Performed By: #### B MP ####[facility] Ayrjohuuze[address] [place] [phone]. Farhat Leal Glucose [Mass/Vol] 314 mg/dL Critically high 74-106 [facility] Comment on above: Performed By: #### B MP ####[facility] Prfavugxjt7772 [place] [address]Dr. Farhat Leal Potassium [Moles/Vol] 4.7 mmol/L Normal 3.5-5.1 [facility] Comment on above: Performed By: #### B MP ####[facility] [address]voqaqgyww[address] [place], [place] [address]Dr. Farhat Lael Sodium [Moles/Vol] 127 mmol/L Critically low 136-145 [facility] Comment on above: Performed By: #### B MP ####[facility] Knzuzapgxc1286 [place] [phone]. Farhat Leal Urea nitrogen [Mass/Vol] 79.0 mg/dL Critically high 7.0-18.0 [facility] Comment on above: Result Comment: repe ated Performed By: #### B MP ####[facility] Rolhkasaia6[address] [place] [phone]. Farhat Leal Urea nitrogen/Creatinine [Mass ratio] 41.4 mg/mg Normal [facility] Comment on above: Performed By: #### B MP ####[facility] Pysyjopgta[address] [place] [address]Dr. Farhat Leal PTT HEPARIN MONITORon 2021 aPTT Coag (Bld) [Time] 42.7 s Normal 39.5-54.2 [facility] Comment on above: Performed By: #### P TTHEP ####[facility] Qaiozefidl0942 [place] [address]Dr. Farhat Elvis aPTT Coag (Bld) [Time] 56.7 s Critically high 39.5-54. 2 [facility] Comment on above: Performed By: #### P TTHEP ####[facility] Uzciakmgag[address] [place], [place] [address]Dr. Farhat Leal CBC AUTO DIFFon 09-23-2021 BASO # 0.1 103/ul Normal 0.0-0.[address] [facility] Comment on above: Performed By: #### C BC ####[facility] [address]dlfkqdnw[address] [place], [place] [address]Dr. Farhat Leal Basophils/100 WBC (Bld) 0.6 % Normal 0.2-2.[address] [facility] Comment on above: Performed By: #### C BC ####[facility] Wdsneazhex[address] [place], [place] [address]Dr. Farhat Leal EO # 0.2 103/ul Normal 0.0-0.[address] [facility] Comment on above: Performed By: #### C BC ####[facility] [address]vbyfkytes[address] [place], [place] [address]Dr. Farhat Leal Eosinophils/100 WBC (Bld) 2.6 % Normal 0.9-7.[address] [facility] Comment on above: Performed By: #### C BC ####[facility] Xwelffkuzb[address] [place], [place] [address]Dr. Farhat Leal Erythrocyte distribution width (RBC) [Ratio] 12.4 % Normal 11.0-15.[address] [facility] Comment on above: Performed By: #### C BC ####[facility] Mhcgyhzcfi[address] [place], [place] [address]Dr. Farhat Leal Hematocrit (Bld) [Volume fraction] 38.4 % Critically low 42.0-54.[address] [facility] Comment on above: Performed By: #### C BC ####[facility] Mfpqcxtguv7755 [place] [phone]. Farhat Leal Hemoglobin (Bld) [Mass/Vol] 12.8 g/dL Critically low 14.0-18.[address] [facility] Comment on above: Performed By: #### C BC ####[facility] Luyvbaqrhk4[address] [place] [phone]. Farhat Leal IG # 0.06 10e3/ul Critically high 0.00-0.03 [facility] Comment on above: Performed By: #### C BC ####[facility] Xjocszihua9948 [place] [phone]. Farhat Leal IG % 0.8 % Critically high 0.0-0.[address] [facility] Comment on above: Performed By: #### C BC ####[facility] Dknexvoyem0910 [place] [address]Dr. Farhat Leal LYMPH # 1.5 103/ul Normal 1.2-3.[address] [facility] Comment on above: Performed By: #### C BC ####[facility] Xozwukuhju3299 [place] [address]Dr. Farhat Leal Lymphocytes/100 WBC (Bld) 19.7 % Critically low 20.5-60.[address] [facility] Comment on above: Performed By: #### C BC ####[facility] Vqftztxbzv8574 [place] [address]Dr. Farhat Leal MANUAL DIFF REQ NO Normal [facility] Comment on above: Performed By: #### C BC ####[facility] Xhvraceqgk4792 [place] [address]Dr. Farhat Leal MCH (RBC) [Entitic mass] 31.6 pg Normal 25.9-34.[address] [facility] Comment on above: Performed By: #### C BC ####[facility] Kfduwpokrm9508 [place] [address]Dr. Farhat Leal MCHC (RBC) [Mass/Vol] 33.3 g/dL Normal 29.9-35.[address] [facility] Comment on above: Performed By: #### C BC ####[facility] Icgialpxlt4188 [place] [phone]. Farhat Leal MCV (RBC) [Entitic vol] 94.8 fL Critically high 80.0-94.[address] [facility] Comment on above: Performed By: #### C BC ####[facility] Qvlgjemvke8575 [place] [phone]. Farhat Leal MONO # 1.0 103/ul Critically high 0.3-0.[address] [facility] Comment on above: Performed By: #### C BC ####[facility] Ugqcbzbesy3524 [place] [phone]. Farhat Leal Monocytes/100 WBC (Bld) 13.0 % Critically high 1.7-12.[address] [facility] Comment on above: Performed By: #### C BC ####[facility] Afewybazwt1055 [place] [phone]. Farhat Leal NEUT # 4.9 103/ul Normal 1.4-6.[address] [facility] Comment on above: Performed By: #### C BC ####[facility] Arowxfljqt3061 [place] [phone]. Farhat Leal Neutrophils/100 WBC (Bld) 63.3 % Normal 43.0-75.[address] [facility] Comment on above: Performed By: #### C BC ####[facility] Gaikxtkzah6586 [place] [phone]. Farhat Leal Platelet mean volume (Bld) [Entitic vol] 10.7 fL Normal 9.5-13.[address] [facility] Comment on above: Performed By: #### C BC ####[facility] Pmplqazodr5242 [place] [phone]. Farhat Leal PLT 205 103/ul Normal 150-[address] [facility] Comment on above: Performed By: #### C BC ####[facility] Prdvkhptyd1552 [place] [phone]. Farhat Leal RBC 4.05 106/ul Critically low 4.70-6.[address] [facility] Comment on above: Performed By: #### C BC ####[facility] Jyxuvgyqne9063 [place] [phone]. Madelynlorri Elvis WBC 7.7 103/ul Normal 4.0-11.0 [facility] Comment on above: Performed By: #### C BC ####[facility] Ibsslcbyrn7901 [place] [address]Dr. Farhat Leal PROF CHEM 8 (BAS METB)on Anion gap [Moles/Vol] 15.5 mmol/L Normal [facility] Comment on above: Performed By: #### B MP ####[facility] Knmrppwbea8749 [place] [address]Dr. Farhat Leal Calcium [Mass/Vol] 9.1 mg/dL Normal 8.5-10.1 [facility] Comment on above: Performed By: #### B MP ####[facility] [address]zrrpwnpm[address] [place], [place] [address]Dr. Farhat Leal Chloride [Moles/Vol] 92 mmol/L Critically low 98-107 [facility] Comment on above: Performed By: #### B MP ####[facility] Rsvuhduczf[address] [place], [place] [address]Dr. Farhat Leal CO2 [Moles/Vol] 28.5 mmol/L Normal 21.0-32.0 [facility] Comment on above: Performed By: #### B MP ####[facility] Fcbgoehcfo[address] [place], [place] [address]Dr. Farhat Leal Creatinine [Mass/Vol] 1.84 mg/dL Critically high 0.70-1.30 [facility] Comment on above: Performed By: #### B MP ####[facility] Xdmnzmgkgq[address] [place], [place] [address]Dr. Farhat Leal EGFR-AF [place]IZ[place] 44 mL/min/1.73m2 Critically low >=[address] [facility] Comment on above: Performed By: #### B MP ####[facility] Agitvlnbxw64[address] [place], [place] [address]Dr. Farhat Leal EGFR-NON AF CITIZEN [place] 36 mL/min/1.73m2 Critically low >=[address] [facility] Comment on above: Performed By: #### B MP ####[facility] Szbbenuoqx3597 [place] [address]Dr. Madelynlorri Elvis Glucose [Mass/Vol] 267 mg/dL Critically high 74-106 [facility] Comment on above: Performed By: #### B MP ####[facility] Esfxixjpjz8064 [place] [address]Dr. Farhat Leal Potassium [Moles/Vol] 5.0 mmol/L Normal 3.5-5.1 [facility] Comment on above: Performed By: #### B MP ####[facility] Mathzhkskg[address] [place], [place] [address]Dr. Farhat Leal Sodium [Moles/Vol] 131 mmol/L Critically low 136-145 [facility] Comment on above: Performed By: #### B MP ####[facility] Oqryxliydj06[address] [place], [place] [address]Dr. Farhat Leal Urea nitrogen [Mass/Vol] 76.0 mg/dL Critically high 7.0-18.0 [facility] Comment on above: Performed By: #### B MP ####[facility] Vdinfqtuah7[address] [place], [place] [address]Dr. Farhat Leal Urea nitrogen/Creatinine [Mass ratio] 41.3 mg/mg Normal [facility] Comment on above: Performed By: #### B MP ####[facility] Wobtofxhoi8[address] [place], [place] [address]Dr. Farhat Leal PTT HEPARIN MONITORon 2021 aPTT Coag (Bld) [Time] 57.2 s Critically high 39.5-54. 2 [facility] Comment on above: Performed By: #### P TTHEP ####[facility] [address]bbzfv[address] [place], [place] [address]Dr. Farhat Leal aPTT Coag (Bld) [Time] 74.7 s Critically high 39.5-54. 2 [facility] Comment on above: Result Comment: repe ated Performed By: #### P TTHEP ####[facility] Araejywnww[address] [place], [place] [address]Dr. Farhat Leal aPTT Coag (Bld) [Time] 45.5 s Normal 39.5-54.[address] [facility] Comment on above: Performed By: #### P TTHEP ####[facility] Jxrgvliffr7991 [place] [phone]. Farhat Leal CBC AUTO DIFFon 09-22-2021 BASO # 0.1 103/ul Normal 0.0-0.1 [facility] Comment on above: Performed By: #### C BC ####[facility] Msfuiuagyw2948 [place] [phone]. Farhat Leal Basophils/100 WBC (Bld) 0.7 % Normal 0.2-2.0 [facility] Comment on above: Performed By: #### C BC ####[facility] Dznqq[address]ihu[address] [place], [place] [address]Dr. Farhat Leal EO # 0.3 103/ul Normal 0.0-0.7 [facility] Comment on above: Performed By: #### C BC ####[facility] Ajfmxobxej[address] [place], [place] [address]Dr. Farhat Leal Eosinophils/100 WBC (Bld) 3.2 % Normal 0.9-7.[address] [facility] Comment on above: Performed By: #### C BC ####[facility] [address]sbtrzlewe[address] [place], [place] [address]Dr. Farhat Leal Erythrocyte distribution width (RBC) [Ratio] 12.5 % Normal 11.0-15.[address] [facility] Comment on above: Performed By: #### C BC ####[facility] Ovravpueil[address] [place], [place] [address]Dr. Farhat Leal Hematocrit (Bld) [Volume fraction] 40.5 % Critically low 42.0-54.[address] [facility] Comment on above: Performed By: #### C BC ####[facility] Ajllotlqxv[address] [place], [place] [address]Dr. Farhat Leal Hemoglobin (Bld) [Mass/Vol] 13.4 g/dL Critically low 14.0-18.[address] [facility] Comment on above: Performed By: #### C BC ####[facility] Yqithsgqge1545 [place] [phone]. Farhat Leal IG # 0.11 10e3/ul Critically high 0.00-0.03 [facility] Comment on above: Performed By: #### C BC ####[facility] Gmmdqdfhot[address] [place] [id number]. Farhat Leal IG % 1.3 % Critically high 0.0-0.5 [facility] Comment on above: Performed By: #### C BC ####[facility] Smhkjwnfnd27[address] [place] [address]Dr. Farhat Leal LYMPH # 1.7 103/ul Normal 1.2-3.8 [facility] Comment on above: Performed By: #### C BC ####[facility] Bzhukiocbm[address] [place], [place] [address]Dr. Farhat Leal Lymphocytes/100 WBC (Bld) 19.6 % Critically low 20.5-60.0 [facility] Comment on above: Performed By: #### C BC ####[facility] Pzenmuuauz[address] [place] [address]Dr. Farhat Leal MANUAL DIFF REQ NO Normal [facility] Comment on above: Performed By: #### C BC ####[facility] Woltlblctu[address] [place], [place] [address]Dr. Farhat Leal MCH (RBC) [Entitic mass] 31.1 pg Normal 25.9-34.0 [facility] Comment on above: Performed By: #### C BC ####[facility] Latqgbyrao[address] [place], [place] [address]Dr. Farhat Leal MCHC (RBC) [Mass/Vol] 33.1 g/dL Normal 29.9-35.[address] [facility] Comment on above: Performed By: #### C BC ####[facility] Ayjvzrsalm260[address] [place] [address]Dr. Farhat Leal MCV (RBC) [Entitic vol] 94.0 fL Normal 80.0-94.0 [facility] Comment on above: Performed By: #### C BC ####[facility] Mbbfmnovwq2241 [place] [phone]. Farhat Leal MONO # 1.1 103/ul Critically high 0.3-0.[address] [facility] Comment on above: Performed By: #### C BC ####[facility] Nonwvdxgdu08[address] [place] [phone]. Farhat Leal Monocytes/100 WBC (Bld) 12.7 % Critically high 1.7-12.[address] [facility] Comment on above: Performed By: #### C BC ####[facility] Gagtriddjm4478 [place] [phone]. Farhat Leal NEUT # 5.3 103/ul Normal 1.4-6.[address] [facility] Comment on above: Performed By: #### C BC ####[facility] Vuoyddjsbd6188 [place] [phone]. Farhat Leal Neutrophils/100 WBC (Bld) 62.5 % Normal 43.0-75.[address] [facility] Comment on above: Performed By: #### C BC ####[facility] Nlihwgplfe3229 [place] [phone]. Farhat Leal Platelet mean volume (Bld) [Entitic vol] 10.1 fL Normal 9.5-13.[address] [facility] Comment on above: Performed By: #### C BC ####[facility] Qvqqskvubm4194 [place] [phone]. Farhat Leal PLT 220 103/ul Normal 150-[address] [facility] Comment on above: Performed By: #### C BC ####[facility] Mxssuvunkv0718 [place] [phone]. Farhat Leal RBC 4.31 106/ul Critically low 4.70-6.[address] [facility] Comment on above: Performed By: #### C BC ####[facility] Lqwzogfmpd2237 [place] [phone]. Farhat Leal WBC 8.4 103/ul Normal 4.0-11.[address] [facility] Comment on above: Performed By: #### C BC ####[facility] Jjzkwojvfv5890 [place] [address]Dr. Farhat Leal PROF CHEM 8 (BAS METB)on Anion gap [Moles/Vol] 15.5 mmol/L Normal [facility] Comment on above: Performed By: #### B MP ####[facility] Wgrzrqvivp8284 [place] [address]Dr. Farhat Leal Calcium [Mass/Vol] 8.9 mg/dL Normal 8.5-10.1 [facility] Comment on above: Performed By: #### B MP ####[facility] Slyhukkrho[address] [place], [place] [address]Dr. Farhat Leal Chloride [Moles/Vol] 92 mmol/L Critically low 98-107 [facility] Comment on above: Performed By: #### B MP ####[facility] Arvidzaoip[address] [place], [place] [address]Dr. Farhat Leal CO2 [Moles/Vol] 25.7 mmol/L Normal 21.0-32.0 [facility] Comment on above: Performed By: #### B MP ####[facility] Essasewhpb8434[address] [place], [place] [address]Dr. Farhat Leal Creatinine [Mass/Vol] 1.85 mg/dL Critically high 0.70-1.30 [facility] Comment on above: Performed By: #### B MP ####[facility] Ytokgzsbkn9157[address] [place], [place] [address]Dr. Farhat Leal EGFR-AF CITIZEN OF [place] 43 mL/min/1.73m2 Critically low >=60 [facility] Comment on above: Performed By: #### B MP ####[facility] Csexhqiqmk9[address] [place], [place] [address]Dr. Farhat Leal EGFR-NON AF CITIZEN OF [place] 36 mL/min/1.73m2 Critically low >=60 [facility] Comment on above: Performed By: #### B MP ####[facility] Aylabwfbpw6[address] [place], [place] [address]Dr. Farhat Leal Glucose [Mass/Vol] 410 mg/dL Critically high 74-106 [facility] Comment on above: Performed By: #### B MP ####[facility] Kjjkkbpuvx6315 [place] [address]Dr. Farhat Leal Potassium [Moles/Vol] 5.2 mmol/L Critically high 3.5-5.1 [facility] Comment on above: Performed By: #### B MP ####[facility] Ououalbrbu[address] [place], [place] [address]Dr. Farhat Leal Sodium [Moles/Vol] 128 mmol/L Critically low 136-145 [facility] Comment on above: Performed By: #### B MP ####[facility] Gmxvdajyjs6940[address] [place], [place] [address]Dr. Farhat Leal Urea nitrogen [Mass/Vol] 75.0 mg/dL Critically high 7.0-18.0 [facility] Comment on above: Performed By: #### B MP ####[facility] Esgfenvryi646[address] [place], [place] [address]Dr. Farhat Leal Urea nitrogen/Creatinine [Mass ratio] 40.5 mg/mg Normal [facility] Comment on above: Performed By: #### B MP ####[facility] Mfzxokicry[address] [place], [place] [address]Dr. Farhat Leal PTT HEPARIN MONITORon 2021 aPTT Coag (Bld) [Time] 51.2 s Normal 39.5-54.2 [facility] Comment on above: Performed By: #### P TTHEP ####[facility] Ygyszteojm7[address] [place], [place] [address]Dr. Farhat Leal aPTT Coag (Bld) [Time] 55.6 s Critically high 39.5-54. 2 [facility] Comment on above: Performed By: #### P TTHEP ####[facility] Hnioamgpug9[address] [place], [place] [address]Dr. Farhat Leal aPTT Coag (Bld) [Time] 46.1 s Normal 39.5-54.2 [facility] Comment on above: Performed By: #### P TTHEP ####[facility] Izrirtxkjt96[address] [place], [place] [address]Dr. Farhat Leal aPTT Coag (Bld) [Time] 53.8 s Normal 39.5-54.[address] [facility] Comment on above: Performed By: #### P TTHEP ####[facility] Kfkqrmaopk3201 [place] [address]Dr. Farhat Leal CBC AUTO DIFFon 09-21-2021 BASO # 0.1 103/ul Normal 0.0-0.1 [facility] Comment on above: Performed By: #### C BC ####[facility] Rjrroutnwf4949 [place] [address]Dr. Farhat Elvis Basophils/100 WBC (Bld) 0.8 % Normal 0.2-2.0 [facility] Comment on above: Performed By: #### C BC ####[facility] Tnzwxhqrps[address] [place], [place] [address]Dr. Farhat Leal EO # 0.4 103/ul Normal 0.0-0.7 [facility] Comment on above: Performed By: #### C BC ####[facility] Iuwpksgvwf5901[address] [place], [place] [address]Dr. Farhat Leal Eosinophils/100 WBC (Bld) 4.3 % Normal 0.9-7.0 [facility] Comment on above: Performed By: #### C BC ####[facility] Azrrroslgt640[address] [place], [place] [address]Dr. Farhat Leal Erythrocyte distribution width (RBC) [Ratio] 12.5 % Normal 11.0-15.[address] [facility] Comment on above: Performed By: #### C BC ####[facility] Ybdpefhuvd[address] [place], [place] [address]Dr. Farhat Leal Hematocrit (Bld) [Volume fraction] 40.8 % Critically low 42.0-54.[address] [facility] Comment on above: Performed By: #### C BC ####[facility] Cazejptpit[address] [place], [place] [address]Dr. Farhat Leal Hemoglobin (Bld) [Mass/Vol] 13.5 g/dL Critically low 14.0-18.0 [facility] Comment on above: Performed By: #### C BC ####[facility] Tottbpaccd8794 [place] [phone]. Farhat Leal IG # 0.10 10e3/ul Critically high 0.00-0.03 [facility] Comment on above: Performed By: #### C BC ####[facility] Lzdqnakstj4378 [place] [phone]. Farhat Leal IG % 1.2 % Critically high 0.0-0.5 [facility] Comment on above: Performed By: #### C BC ####[facility] Ydddyjunqj2208 [place] [address]Dr. Farhat Leal LYMPH # 1.3 103/ul Normal 1.2-3.8 [facility] Comment on above: Performed By: #### C BC ####[facility] Cqkxpkauec3946 [place] [address]Dr. Farhat Leal Lymphocytes/100 WBC (Bld) 15.4 % Critically low 20.5-60.0 [facility] Comment on above: Performed By: #### C BC ####[facility] Jwphmpzevl5746 [place] [address]Dr. Farhat Leal MANUAL DIFF REQ NO Normal [facility] Comment on above: Performed By: #### C BC ####[facility] Niqkvqvteg[address] [place], [place] [address]Dr. Farhat Leal MCH (RBC) [Entitic mass] 31.0 pg Normal 25.9-34.0 [facility] Comment on above: Performed By: #### C BC ####[facility] Ijhjmlhbfh[address] [place], [place] [address]Dr. Farhat Leal MCHC (RBC) [Mass/Vol] 33.1 g/dL Normal 29.9-35.[address] [facility] Comment on above: Performed By: #### C BC ####[facility] Supmrilszw[address] [place], [place] [address]Dr. Farhat Leal MCV (RBC) [Entitic vol] 93.8 fL Normal 80.0-94.0 [facility] Comment on above: Performed By: #### C BC ####[facility] Yspjtugcbx2592 [place] [phone]. Farhat Leal MONO # 1.2 103/ul Critically high 0.3-0.[address] [facility] Comment on above: Performed By: #### C BC ####[facility] Hmcljejyaw2998 [place] [phone]. Farhat Leal Monocytes/100 WBC (Bld) 13.6 % Critically high 1.7-12.[address] [facility] Comment on above: Performed By: #### C BC ####[facility] Drbtnevxwe8199 [place] [phone]. Farhat Leal NEUT # 5.5 103/ul Normal 1.4-6.[address] [facility] Comment on above: Performed By: #### C BC ####[facility] Jcudeesuxk1380 [place] [address]Dr. Farhat Leal Neutrophils/100 WBC (Bld) 64.7 % Normal 43.0-75.[address] [facility] Comment on above: Performed By: #### C BC ####[facility] Fgonugscxp5047 [place] [phone]. Farhat Leal Platelet mean volume (Bld) [Entitic vol] 9.8 fL Normal 9.5-13.[address] [facility] Comment on above: Performed By: #### C BC ####[facility] Xktwpcvasp0670 [place] [phone]. Farhat Leal PLT 206 103/ul Normal 150-[address] [facility] Comment on above: Performed By: #### C BC ####[facility] Xeqcnqglfa6958 [place] [phone]. Farhat Leal RBC 4.35 106/ul Critically low 4.70-6.[address] [facility] Comment on above: Performed By: #### C BC ####[facility] Yishaojoph7203 [place] [phone]. Farhat Leal WBC 8.4 103/ul Normal 4.0-11.[address] [facility] Comment on above: Performed By: #### C BC ####[facility] Pjbfizuxux9951 [place] [phone]. Farhat Leal PROF CHEM 8 (BAS METB)on Anion gap [Moles/Vol] 12.3 mmol/L Normal [facility] Comment on above: Performed By: #### B MP ####[facility] Ehrncrqzgf0757 [place] [address]Dr. Farhat Leal Calcium [Mass/Vol] 8.6 mg/dL Normal 8.5-10.1 [facility] Comment on above: Performed By: #### B MP ####[facility] Pjsbasdkvi7067 [place] [address]Dr. Farhat Leal Chloride [Moles/Vol] 94 mmol/L Critically low 98-107 [facility] Comment on above: Performed By: #### B MP ####[facility] Wielgbzxwg2947 [place] [address]Dr. Farhat Leal CO2 [Moles/Vol] 30.8 mmol/L Normal 21.0-32.0 [facility] Comment on above: Performed By: #### B MP ####[facility] [address]axbuxjqsm14[address] [place], [place] [address]Dr. Farhat Leal Creatinine [Mass/Vol] 1.99 mg/dL Critically high 0.70-1.30 [facility] Comment on above: Performed By: #### B MP ####[facility] Sqwvbvzudp[address] [place], [place] [address]Dr. Farhat Leal EGFR-AF [place]IZ[place] 40 mL/min/1.73m2 Critically low >=60 [facility] Comment on above: Performed By: #### B MP ####[facility] Imufozucin6111 [place] [address]Dr. Farhat Leal EGFR-NON AF [place]IZ[place] 33 mL/min/1.73m2 Critically low >=60 [facility] Comment on above: Performed By: #### B MP ####[facility] [address]qiwkblcyb[address] [place], [place] [address]Dr. Farhat Leal Glucose [Mass/Vol] 264 mg/dL Critically high 74-106 [facility] Comment on above: Performed By: #### B MP ####[facility] Knurepiycp9844 [place] [address]Dr. Farhat Leal Potassium [Moles/Vol] 5.1 mmol/L Normal 3.5-5.1 [facility] Comment on above: Performed By: #### B MP ####[facility] Vsxerodmbi[address] [place], [place] [address]Dr. Farhat Leal Sodium [Moles/Vol] 132 mmol/L Critically low 136-145 [facility] Comment on above: Performed By: #### B MP ####[facility] T[address]gfyzqxb8[address] [place], [place] [address]Dr. Farhat Leal Urea nitrogen [Mass/Vol] 72.0 mg/dL Critically high 7.0-18.0 [facility] Comment on above: Performed By: #### B MP ####[facility] Qucevqhwgs[address] [place], [place] [address]Dr. Farhat Leal Urea nitrogen/Creatinine [Mass ratio] 36.2 mg/mg Normal [facility] Comment on above: Performed By: #### B MP ####[facility] Rxxaueuxfg[address] [place], [place] [address]Dr. Farhat eLal PTT HEPARIN MONITORon 2021 aPTT Coag (Bld) [Time] 45.3 s Normal 39.5-54.2 [facility] Comment on above: Performed By: #### P TTHEP ####[facility] Rwnhxpidmz[address] [place], [place] [address]Dr. aFrhat Leal aPTT Coag (Bld) [Time] 68.0 s Critically high 39.5-54. 2 [facility] Comment on above: Performed By: #### P TTHEP ####[facility] Vdkxmnerzh40[address] [place], [place] [address]Dr. Farhat Leal aPTT Coag (Bld) [Time] 69.4 s Critically high 39.5-54. 2 [facility] Comment on above: Performed By: #### P TTHEP ####[facility] Jbxgzrwahy[address] [place], [place] [address]Dr. Farhat Leal aPTT Coag (Bld) [Time] 53.5 s Normal 39.5-54.2 [facility] Comment on above: Performed By: #### P TTHEP ####[facility] Cwaavgsqsz1204 [place] [address]Dr. Farhat Leal aPTT Coag (Bld) [Time] 126.9 s Critically high 39.5-54. 2 [facility] Comment on above: Performed By: #### P TTHEP ####[facility] Fjaawfpiln[address] [place], [place] [address]Dr. Farhat Leal CBC AUTO DIFFon 09-20-2021 BASO # 0.1 103/ul Normal 0.0-0.1 [facility] Comment on above: Performed By: #### C BC ####[facility] Pkkfegisiz82[address] [place], [place] [address]Dr. Farhat Leal Basophils/100 WBC (Bld) 0.7 % Normal 0.2-2.0 [facility] Comment on above: Performed By: #### C BC ####[facility] Xrspgrwnnj69[address] [place], [place] [address]Dr. Farhat Leal EO # 0.2 103/ul Normal 0.0-0.7 [facility] Comment on above: Performed By: #### C BC ####[facility] Qfxxnyfddg4415[address] [place], [place] [address]Dr. Farhat Leal Eosinophils/100 WBC (Bld) 3.2 % Normal 0.9-7.[address] [facility] Comment on above: Performed By: #### C BC ####[facility] Qmqgxlzmcq63[address] [place], [place] [address]Dr. Farhat Leal Erythrocyte distribution width (RBC) [Ratio] 12.4 % Normal 11.0-15.0 [facility] Comment on above: Performed By: #### C BC ####[facility] Wxiqxsghju16[address] [place], [place] [address]Dr. Farhat Leal Hematocrit (Bld) [Volume fraction] 40.1 % Critically low 42.0-54.0 [facility] Comment on above: Performed By: #### C BC ####[facility] Rrbqmeuhim6355 [place] [phone]. Farhat Leal Hemoglobin (Bld) [Mass/Vol] 13.4 g/dL Critically low 14.0-18.0 [facility] Comment on above: Performed By: #### C BC ####[facility] Lpyrsifruw4850 [place] [phone]. Farhat Leal IG # 0.08 10e3/ul Critically high 0.00-0.03 [facility] Comment on above: Performed By: #### C BC ####[facility] Jiioqqluni4377 [place] [address]Dr. Farhat Leal IG % 1.1 % Critically high 0.0-0.5 [facility] Comment on above: Performed By: #### C BC ####[facility] Riuzqpprmo8711 [place] [address]Dr. Farhat Leal LYMPH # 1.3 103/ul Normal 1.2-3.[address] [facility] Comment on above: Performed By: #### C BC ####[facility] Qoaophxtla8536 [place] [address]Dr. Farhat Leal Lymphocytes/100 WBC (Bld) 17.3 % Critically low 20.5-60.0 [facility] Comment on above: Performed By: #### C BC ####[facility] Relhowvlca0305 [place] [address]Dr. Farhat Leal MANUAL DIFF REQ NO Normal [facility] Comment on above: Performed By: #### C BC ####[facility] Xesreahkka6749 [place] [phone]. Farhat Leal MCH (RBC) [Entitic mass] 31.2 pg Normal 25.9-34.0 [facility] Comment on above: Performed By: #### C BC ####[facility] Lgfvbqdcai9187 [place] [phone]. Farhat Leal MCHC (RBC) [Mass/Vol] 33.4 g/dL Normal 29.9-35.2 [facility] Comment on above: Performed By: #### C BC ####[facility] Tgoudgsetr1876 [place] [phone]. Farhat Leal MCV (RBC) [Entitic vol] 93.3 fL Normal 80.0-94.[address] [facility] Comment on above: Performed By: #### C BC ####[facility] Vdxifsjuiq4151 [place] [phone]. Farhat Leal MONO # 0.9 103/ul Critically high 0.3-0.[address] [facility] Comment on above: Performed By: #### C BC ####[facility] Sbwcfszpxw4615 [place] [phone]. Farhat Leal Monocytes/100 WBC (Bld) 12.4 % Critically high 1.7-12.0 [facility] Comment on above: Performed By: #### C BC ####[facility] [address]fco[address] [place], [place] [id number]. Farhat Leal NEUT # 4.7 103/ul Normal 1.4-6.5 [facility] Comment on above: Performed By: #### C BC ####[facility] Kbesqvhayz2945 [place] [phone]. Farhat Leal Neutrophils/100 WBC (Bld) 65.3 % Normal 43.0-75.[address] [facility] Comment on above: Performed By: #### C BC ####[facility] Lqencupgow5851 [place] [phone]. Farhat Leal Platelet mean volume (Bld) [Entitic vol] 9.9 fL Normal 9.5-13.[address] [facility] Comment on above: Performed By: #### C BC ####[facility] Izmkjibkpb7878 [place] [phone]. Farhat Leal PLT 180 103/ul Normal 150-[address] [facility] Comment on above: Performed By: #### C BC ####[facility] Atzvuirncn5653 [place] [phone]. Farhat Leal RBC 4.30 106/ul Critically low 4.70-6.[address] [facility] Comment on above: Performed By: #### C BC ####[facility] Izyyyaeeli4989 [place] [address]Dr. Farhat Elvis WBC 7.2 103/ul Normal 4.0-11.[address] [facility] Comment on above: Performed By: #### C BC ####[facility] Uyngcudrcw[address] [place], [place] [address]Dr. Farhat Leal PTT HEPARIN MONITORon 2021 aPTT Coag (Bld) [Time] 26.7 s Critically low 39.5-54.[address] [facility] Comment on above: Performed By: #### P TTHEP ####[facility] Dbeusssevm[address] [place], [place] [address]Dr. Farhat Leal aPTT Coag (Bld) [Time] 121.0 s Critically high 39.5-54. [address] [facility] Comment on above: Performed By: #### P TTHEP ####[facility] Eudnpxmtsd[address] [place], [place] [address]Dr. Farhat Elvis aPTT Coag (Bld) [Time] 27.6 s Critically low 39.5-54.[address] [facility] Comment on above: Performed By: #### P TTHEP ####[facility] Lnjkqstrpy7[address] [place], [place] [address]Dr. Madelynlorri Elvis aPTT Coag (Bld) [Time] 139.0 s Critically high 39.5-54. [address] [facility] Comment on above: Performed By: #### P TTHEP ####[facility] Wwvtexrcas[address] [place], [place] [address]Dr. Farhat Leal CBC AUTO DIFFon 09-19-2021 BASO # 0.0 103/ul Normal 0.0-0.[address] [facility] Comment on above: Performed By: #### C BC ####[facility] Gjeeumlhup[address] [place], [place] [address]Dr. Farhat Leal Basophils/100 WBC (Bld) 0.5 % Normal 0.2-2.[address] [facility] Comment on above: Performed By: #### C BC ####[facility] Cnzpzabepo5208 [place] [phone]. Farhat Leal EO # 0.2 103/ul Normal 0.0-0.[address] [facility] Comment on above: Performed By: #### C BC ####[facility] Btomegayjp2725 [place] [phone]. Farhat Leal Eosinophils/100 WBC (Bld) 2.6 % Normal 0.9-7.[address] [facility] Comment on above: Performed By: #### C BC ####[facility] Azsbjduhen2410 [place] [address]Dr. Farhat Leal Erythrocyte distribution width (RBC) [Ratio] 12.5 % Normal 11.0-15.[address] [facility] Comment on above: Performed By: #### C BC ####[facility] Lwmxwilpuv14[address] [place], [place] [address]Dr. Farhat Leal Hematocrit (Bld) [Volume fraction] 39.2 % Critically low 42.0-54.[address] [facility] Comment on above: Performed By: #### C BC ####[facility] Rnlcifzzhb6070 [place] [address]Dr. Farhat Leal Hemoglobin (Bld) [Mass/Vol] 13.3 g/dL Critically low 14.0-18.[address] [facility] Comment on above: Performed By: #### C BC ####[facility] Ndfcouufuh3764 [place] [phone]. Farhat Leal IG # 0.08 10e3/ul Critically high 0.00-0.03 [facility] Comment on above: Performed By: #### C BC ####[facility] Eqtgrjbtri8262 [place] [phone]. Farhat Leal IG % 0.9 % Critically high 0.0-0.[address] [facility] Comment on above: Performed By: #### C BC ####[facility] [address]rievtudnb[address] [place], [place] [address]Dr. Farhat Leal LYMPH # 1.5 103/ul Normal 1.2-3.[address] [facility] Comment on above: Performed By: #### C BC ####[facility] Hsymyjkxjw7763 [place] [phone]. Farhat Leal Lymphocytes/100 WBC (Bld) 17.2 % Critically low 20.5-60.[address] [facility] Comment on above: Performed By: #### C BC ####[facility] Ucmafyfnuu3879 [place] [phone]. Farhat Leal MANUAL DIFF REQ NO Normal [facility] Comment on above: Performed By: #### C BC ####[facility] Oonhbiaazs4114 [place] [address]Dr. Farhat Elvis MCH (RBC) [Entitic mass] 31.7 pg Normal 25.9-34.[address] [facility] Comment on above: Performed By: #### C BC ####[facility] Lyczrehfxf[address] [place], [place] [address]Dr. Farhat Elvis MCHC (RBC) [Mass/Vol] 33.9 g/dL Normal 29.9-35.[address] [facility] Comment on above: Performed By: #### C BC ####[facility] Sfgtlwihee3791 [place] [address]Dr. Farhat Elvis MCV (RBC) [Entitic vol] 93.3 fL Normal 80.0-94.[address] [facility] Comment on above: Performed By: #### C BC ####[facility] Nychzoxews6904 [place] [address]Dr. Madelynlorri Elvis MONO # 1.2 103/ul Critically high 0.3-0.[address] [facility] Comment on above: Performed By: #### C BC ####[facility] Ekmeichaoz8701 [place] [address]Dr. Farhat Elvis Monocytes/100 WBC (Bld) 13.7 % Critically high 1.7-12.[address] [facility] Comment on above: Performed By: #### C BC ####[facility] Brkeblanqn[address] [place], [place] [address]Dr. Farhat Leal NEUT # 5.5 103/ul Normal 1.4-6.[address] [facility] Comment on above: Performed By: #### C BC ####[facility] Byeublkscs3233 [place] [phone]. Farhat Leal Neutrophils/100 WBC (Bld) 65.1 % Normal 43.0-75.0 [facility] Comment on above: Performed By: #### C BC ####[facility] B[address]fuigdsxt[address] [place] [phone]. Farhat Leal Platelet mean volume (Bld) [Entitic vol] 9.6 fL Normal 9.5-13.5 [facility] Comment on above: Performed By: #### C BC ####[facility] Ltwjkyjmrs72[address] [place] [phone]. Farhat Leal PLT 163 103/ul Normal 150-450 [facility] Comment on above: Performed By: #### C BC ####[facility] Sjyemqhpmz[address] [place] [address]Dr. Farhat Leal RBC 4.20 106/ul Critically low 4.70-6.10 [facility] Comment on above: Performed By: #### C BC ####[facility] Nuegevvcnn4[address] [place] [phone]. Farhat Leal WBC 8.4 103/ul Normal 4.0-11.0 [facility] Comment on above: Performed By: #### C BC ####[facility] Rbqovyqdtk80[address] [place] [address]Dr. Farhat Elvis POINT OF CARE GLUCOSEon Glucose [Mass/Vol] 300 mg/dL Critically high 74-106 [facility] Comment on above: Performed By: #### P OCGLUC ####[facility] Zoreegwanx27[address] [place] [address]Dr. Farhat Leal POTASSIUMon 09-19-2021 Potassium [Moles/Vol] 4.9 mmol/L Normal 3.5-5.1 [facility] Comment on above: Performed By: #### K ####[facility] [address]jc[address]liwsps[address] [place], [place] [address]Dr. Farhat Leal PTT HEPARIN MONITORon 2021 aPTT Coag (Bld) [Time] 23.4 s Critically low 39.5-54.[address] [facility] Comment on above: Result Comment: repe ated Performed By: #### P TTHEP ####[facility] [address]vnuqucewy[address] [place], [place] [address]Dr. Farhat Leal aPTT Coag (Bld) [Time] 101.2 s Critically high 39.5-54. [address] [facility] Comment on above: Performed By: #### P TTHEP ####[facility] Piiuihvkox[address] [place], [place] [address]Dr. Farhat Leal aPTT Coag (Bld) [Time] 81.0 s Critically high 39.5-54. [address] [facility] Comment on above: Result Comment: Test Repeated. Critical Value Verified Performed By: #### P TTHEP ####[facility] Fhdlneyoyw[address] [place], [place] [address]Dr. Farhat Elvis CBC AUTO DIFFon 09-18-2021 BASO # 0.0 103/ul Normal 0.0-0.1 [facility] Comment on above: Performed By: #### C BC ####[facility] Vspqvlwaun[address] [place], [place] [address]Dr. Farhat Elvis Basophils/100 WBC (Bld) 0.4 % Normal 0.2-2.[address] [facility] Comment on above: Performed By: #### C BC ####[facility] Yotmthldrb[address] [place], [place] [address]Dr. Farhat Leal EO # 0.1 103/ul Normal 0.0-0.[address] [facility] Comment on above: Performed By: #### C BC ####[facility] Aahdeptyka[address] [place], [place] [address]Dr. Madelynlorri Leal Eosinophils/100 WBC (Bld) 0.8 % Critically low 0.9-7.[address] [facility] Comment on above: Performed By: #### C BC ####[facility] Xhtwnfkiky[address] [place], [place] [address]Dr. Farhat Leal Erythrocyte distribution width (RBC) [Ratio] 12.4 % Normal 11.0-15.[address] [facility] Comment on above: Performed By: #### C BC ####[facility] Gwpxgcjutl[address] [place] [address]Dr. Farhat Leal Hematocrit (Bld) [Volume fraction] 41.7 % Critically low 42.0-54.0 [facility] Comment on above: Performed By: #### C BC ####[facility] Omqgbusasa[address] [place] [address]Dr. Farhat Leal Hemoglobin (Bld) [Mass/Vol] 14.1 g/dL Normal 14.0-18.0 [facility] Comment on above: Performed By: #### C BC ####[facility] Vrfmgycigy9660 [place] [address]Dr. Farhat Leal IG # 0.06 10e3/ul Critically high 0.00-0.03 [facility] Comment on above: Performed By: #### C BC ####[facility] Skppzheitk8962 [place] [address]Dr. Farhat Elvis IG % 0.6 % Critically high 0.0-0.5 [facility] Comment on above: Performed By: #### C BC ####[facility] Nzcbtqu[address]br[address] [place], [place] [address]DrSkylar Farhat Leal LYMPH # 0.6 103/ul Critically low 1.2-3.8 [facility] Comment on above: Performed By: #### C BC ####[facility] Lqywbozlkv0360 [place] [address]DrkSylar Farhat Elvis Lymphocytes/100 WBC (Bld) 6.5 % Critically low 20.5-60.0 [facility] Comment on above: Performed By: #### C BC ####[facility] Ikaoqgnkbd9896 [place] [address]DrSkylar Farhat Elvis MANUAL DIFF REQ NO Normal [facility] Comment on above: Performed By: #### C BC ####[facility] Adyxifyrdr6717 [place] [address]DrSkylar Farhat Elvis MCH (RBC) [Entitic mass] 31.6 pg Normal 25.9-34.0 [facility] Comment on above: Performed By: #### C BC ####[facility] Yaimqnmrpd85[address] [place] [phone]. Farhat Leal MCHC (RBC) [Mass/Vol] 33.8 g/dL Normal 29.9-35.[address] [facility] Comment on above: Performed By: #### C BC ####[facility] Vmrxkfybdz6617 [place] [phone] Farhat Elvis MCV (RBC) [Entitic vol] 93.5 fL Normal 80.0-94.[address] [facility] Comment on above: Performed By: #### C BC ####[facility] Znugwemqzc2558 [place] [phone] Leal MONO # 1.0 103/ul Critically high 0.3-0.[address] [facility] Comment on above: Performed By: #### C BC ####[facility] Wujedmrsdq[address] [place], [place] [address]Dr. Farhat Leal Monocytes/100 WBC (Bld) 10.4 % Normal 1.7-12.0 [facility] Comment on above: Performed By: #### C BC ####[facility] Tsylgfjvod[address] [place], [place] [address]DrSkylar Leal NEUT # 7.8 103/ul Critically high 1.4-6.[address] [facility] Comment on above: Performed By: #### C BC ####[facility] Dchkzmrwym[address] [place], [place] [address]Dr. Farhat Leal Neutrophils/100 WBC (Bld) 81.3 % Critically high 43.0-75.[address] [facility] Comment on above: Performed By: #### C BC ####[facility] [address] [place], [place] [phone] Leal Platelet mean volume (Bld) [Entitic vol] 9.9 fL Normal 9.5-13.[address] [facility] Comment on above: Performed By: #### C BC ####[facility] [address]ct[address] [place], [place] [address]DrSkylar Leal PLT 169 103/ul Normal 150-[address] [facility] Comment on above: Performed By: #### C BC ####[facility] Ouvgxznxfe[address] [place] [phone]. Farhat Elvis RBC 4.46 106/ul Critically low 4.70-6.[address] [facility] Comment on above: Performed By: #### C BC ####[facility] Tcpmvpwhsq5330 [place] [phone]. Madelynlorri Leal WBC 9.6 103/ul Normal 4.0-11.[address] [facility] Comment on above: Performed By: #### C BC ####[facility] Dbofgmrttx9844 [place] [phone]. Farhat Leal BASO # 0.0 103/ul Normal 0.0-0.[address] [facility] Comment on above: Performed By: #### C BC ####[facility] Evblcimtsh4033 [place] [phone]. Farhat Leal Basophils/100 WBC (Bld) 0.4 % Normal 0.2-2.0 [facility] Comment on above: Performed By: #### C BC ####[facility] Ussfbjtokr1845 [place] [phone]. Madelynlorri Leal EO # 0.1 103/ul Normal 0.0-0.[address] [facility] Comment on above: Performed By: #### C BC ####[facility] Vrpaszjeja5635 [place] [phone]. Farhat Leal Eosinophils/100 WBC (Bld) 1.1 % Normal 0.9-7.[address] [facility] Comment on above: Performed By: #### C BC ####[facility] Zbfzxqqkxo2778 [place] [phone]. Madelynlorri Leal Erythrocyte distribution width (RBC) [Ratio] 12.6 % Normal 11.0-15.[address] [facility] Comment on above: Performed By: #### C BC ####[facility] Lepfzwifwn0594 [place] [phone]. Farhat Leal Hematocrit (Bld) [Volume fraction] 40.8 % Critically low 42.0-54.[address] [facility] Comment on above: Performed By: #### C BC ####[facility] Imwsrczwdb7202 [place] [address]Dr. Farhat Leal Hemoglobin (Bld) [Mass/Vol] 13.6 g/dL Critically low 14.0-18.0 [facility] Comment on above: Performed By: #### C BC ####[facility] Zgbeqigsgp86[address] [place] [address]Dr. Farhat Leal IG # 0.08 10e3/ul Critically high 0.00-0.03 [facility] Comment on above: Performed By: #### C BC ####[facility] Hbmjyuvmkq2108 [place] [address]Dr. Farhat Leal IG % 0.9 % Critically high 0.0-0.[address] [facility] Comment on above: Performed By: #### C BC ####[facility] Xjbgtvlfpz7279 [place] [address]Dr. Farhat Leal LYMPH # 0.8 103/ul Critically low 1.2-3.8 [facility] Comment on above: Performed By: #### C BC ####[facility] Ztvdcwnuax1839 [place] [address]Dr. Farhat Leal Lymphocytes/100 WBC (Bld) 8.7 % Critically low 20.5-60.0 [facility] Comment on above: Performed By: #### C BC ####[facility] Krkjtirscd5923 [place] [address]Dr. Farhat Leal MANUAL DIFF REQ NO Normal [facility] Comment on above: Performed By: #### C BC ####[facility] Wshaxnohps1731 [place] [address]Dr. Farhat Leal MCH (RBC) [Entitic mass] 31.6 pg Normal 25.9-34.[address] [facility] Comment on above: Performed By: #### C BC ####[facility] Gwzeeegobu8678 [place] [address]Dr. Farhat Elvis MCHC (RBC) [Mass/Vol] 33.3 g/dL Normal 29.9-35.[address] [facility] Comment on above: Performed By: #### C BC ####[facility] Orixpaoyfd8676 [place] [phone]. Farhat Leal MCV (RBC) [Entitic vol] 94.9 fL Critically high 80.0-94.[address] [facility] Comment on above: Performed By: #### C BC ####[facility] Jgxjsrlenp7805 [place] [phone] Farhat Leal MONO # 1.0 103/ul Critically high 0.3-0.[address] [facility] Comment on above: Performed By: #### C BC ####[facility] Mmecztnzzc6674 [place] [phone]. Farhat Elivs Monocytes/100 WBC (Bld) 11.3 % Normal 1.7-12.[address] [facility] Comment on above: Performed By: #### C BC ####[facility] [address] [place], [place] [address]Dr. Farhat Leal NEUT # 6.9 103/ul Critically high 1.4-6.[address] [facility] Comment on above: Performed By: #### C BC ####[facility] Cafgmyoujn2653 [place] [phone]. Farhat Elvis Neutrophils/100 WBC (Bld) 77.6 % Critically high 43.0-75.[address] [facility] Comment on above: Performed By: #### C BC ####[facility] Tpwjksekgs5604 [place] [phone]. Farhat Elvis Platelet mean volume (Bld) [Entitic vol] 9.7 fL Normal 9.5-13.[address] [facility] Comment on above: Performed By: #### C BC ####[facility] Jqovbmmrqk8476 [place] [phone]. Farhat Leal PLT 171 103/ul Normal 150-[address] [facility] Comment on above: Performed By: #### C BC ####[facility] Iqqtmialvt8552 [place] [phone]. Farhat Leal RBC 4.30 106/ul Critically low 4.70-6.[address] [facility] Comment on above: Performed By: #### C BC ####[facility] Whnpwvihzs6021 [place] [phone]. Farhat Leal WBC 8.9 103/ul Normal 4.0-11.0 [facility] Comment on above: Performed By: #### C BC ####[facility] [address]ysaahmt[address] [place], [place] [address]Bt. Farhat Leal Covid-19 PCR (CVDTB)on SARS-CoV-2 (COVID-19) RNA JOSH+probe Ql (Unsp spec) Not detected Normal NOT DETECTED [facility] Comment on above: Result Comment: When [...] for this test is supported by the [place] of Health and Human Service's declaration that [...] be used). Performed By: #### C VDTBH ####[facility] Nhqblzhkgm1881 [place] [phone]. Farhat Leal PROF 14(COMP METB)on 022 Albumin [Mass/Vol] 2.6 g/dL Critically low 3.4-5.[address] [facility] Comment on above: Performed By: #### C MP ####[facility] Qfjxvafmwo0390 [place] [phone]. Farhat Leal Albumin/Globulin [Mass ratio] 0.7 {ratio} Normal [facility] Comment on above: Performed By: #### C MP ####[facility] Wxrjjoyuya5103 [place] [phone]. Farhat Leal ALP [Catalytic activity/Vol] 88 U/L Normal 46-116 [facility] Comment on above: Performed By: #### C MP ####[facility] Ilwfaqjfzk4859 [place], [place] [address]Hz. Farhat Leal ALT [Catalytic activity/Vol] 15 U/L Critically low 16-63 [facility] Comment on above: Performed By: #### C MP ####[facility] Qtllmkgyfn4191 [place] [phone]. Farhat Leal Anion gap [Moles/Vol] 11.7 mmol/L Normal Th [facility] Comment on above: Performed By: #### C MP ####[facility] Fvfkvaopes8629 [place] [phone]. Farhat Leal AST [Catalytic activity/Vol] 25 U/L Normal 15-37 [facility] Comment on above: Performed By: #### C MP ####[facility] Wvkquetqak2206 [place] [phone]. Farhat Leal Bilirubin [Mass/Vol] 0.6 mg/dL Normal 0.2-1.[address] [facility] Comment on above: Performed By: #### C MP ####[facility] Rqrpwqdska7452 [place] [phone]. Farhat Leal Calcium [Mass/Vol] 8.9 mg/dL Normal 8.5-10.1 [facility] Comment on above: Performed By: #### C MP ####[facility] Kpweuchbhu2781 [place] [phone]. Farhat Leal Chloride [Moles/Vol] 93 mmol/L Critically low 98-107 [facility] Comment on above: Performed By: #### C MP ####[facility] Gojombyvtw4835 [place] [phone]. Farhat Leal CO2 [Moles/Vol] 28.9 mmol/L Normal 21.0-32.0 [facility] Comment on above: Performed By: #### C MP ####[facility] Cybrihbwqe6583 [place] [phone]. Farhat Leal Creatinine [Mass/Vol] 2.09 mg/dL Critically high 0.70-1.30 [facility] Comment on above: Performed By: #### C MP ####[facility] Sgiirdvtun0068 [place], [place] [address]Fv. Farhat Leal EGFR-AF CITIZEN [place] 38 mL/min/1.73m2 Critically low >=60 [facility] Comment on above: Performed By: #### C MP ####[facility] Qzlsiaodok0960 [place] [phone]. Farhat Leal EGFR-NON AF CITIZEN OF [place] 31 mL/min/1.73m2 Critically low >=60 [facility] Comment on above: Performed By: #### C MP ####[facility] Jwfyngftrn6133 [place] [phone]. Farhat Leal Globulin (S) [Mass/Vol] 3.7 g/dL Normal [facility] Comment on above: Performed By: #### C MP ####[facility] Lmrwfwokud5670 [place] [phone]. Farhat Leal Glucose [Mass/Vol] 214 mg/dL Critically high 74-106 [facility] Comment on above: Performed By: #### C MP ####[facility] Haqbfkohap6297 [place] [phone]. Farhat Leal Potassium [Moles/Vol] 5.6 mmol/L Critically high 3.5-5.1 [facility] Comment on above: Performed By: #### C MP ####[facility] Sxbwjvegrc7856 [place] [phone]. Farhat Leal Protein [Mass/Vol] 6.3 g/dL Critically low 6.4-8.2 [facility] Comment on above: Performed By: #### C MP ####[facility] Ybxwzsvpwr6921 [place] [phone]. Farhat Leal Sodium [Moles/Vol] 128 mmol/L Critically low 136-145 [facility] Comment on above: Performed By: #### C MP ####[facility] Bygxbsgslt0258 [place] [phone]. Farhat Leal Urea nitrogen [Mass/Vol] 65.0 mg/dL Critically high 7.0-18.0 [facility] Comment on above: Performed By: #### C MP ####[facility] Fgovpjwngy9033 [place] [phone]. Farhat Elvis Urea nitrogen/Creatinine [Mass ratio] 31.1 mg/mg Normal [facility] Comment on above: Performed By: #### C MP ####[facility] Tegemsbcqo1817 [place] [phone]. Farhat Elvis Albumin [Mass/Vol] 2.5 g/dL Critically low 3.4-5.0 [facility] Comment on above: Performed By: #### T MYRIAM, CMP ####[facility] Izatjnwidy[address] [place], [place] [address]Dr. Farhat Leal Albumin/Globulin [Mass ratio] 0.7 {ratio} Normal [facility] Comment on above: Performed By: #### T MYRIAM, CMP ####[facility] Ovfhbpzojx[address] [place], [place] [address]Dr. Farhat Elvis ALP [Catalytic activity/Vol] 83 U/L Normal 46-116 [facility] Comment on above: Performed By: #### T MYRIAM, CMP ####[facility] Rikejsoqgv[address] [place], [place] [address]Dr. Farhat Leal ALT [Catalytic activity/Vol] 16 U/L Normal 16-63 [facility] Comment on above: Performed By: #### T MYRIAM, CMP ####[facility] Fnhpkgubmt[address] [place], [place] [address]Dr. Farhat Leal Anion gap [Moles/Vol] 9.7 mmol/L Normal [facility] Comment on above: Performed By: #### T SH, CMP ####[facility] Wadumfyjwe[address] [place], [place] [address]Dr. Farhat Leal AST [Catalytic activity/Vol] 27 U/L Normal 15-37 [facility] Comment on above: Performed By: #### T MYRIAM, CMP ####[facility] Eamizukpwn6695 [place] [address]Dr. Farhat Leal Bilirubin [Mass/Vol] 0.5 mg/dL Normal 0.2-1.[address] [facility] Comment on above: Performed By: #### T SH, CMP ####[facility] Nnvfboikep500[address] [place], [place] [address]Dr. Farhat Leal Calcium [Mass/Vol] 8.8 mg/dL Normal 8.5-10.1 [facility] Comment on above: Performed By: #### T SH, CMP ####[facility] Idwgqweziy05[address] [place], [place] [address]Dr. Farhat Leal Chloride [Moles/Vol] 95 mmol/L Critically low 98-107 [facility] Comment on above: Performed By: #### T SH, CMP ####[facility] Elydjvahdv310[address] [place], [place] [address]Dr. Farhat Leal CO2 [Moles/Vol] 30.5 mmol/L Normal 21.0-32.0 [facility] Comment on above: Performed By: #### T SH, CMP ####[facility] Qllpzszgbb[address] [place], [place] [address]Dr. Farhat Leal Creatinine [Mass/Vol] 2.18 mg/dL Critically high 0.70-1.30 [facility] Comment on above: Performed By: #### T SH, CMP ####[facility] Gllrwebfit[address] [place], [place] [address]Dr. Farhat Leal EGFR-AF [place]IZ[place] 36 mL/min/1.73m2 Critically low >=[address] [facility] Comment on above: Performed By: #### T SH, CMP ####[facility] Frdokxudyi[address] [place], [place] [address]Dr. Farhat Leal EGFR-NON AF CITIZEN [place] 30 mL/min/1.73m2 Critically low >=[address] [facility] Comment on above: Performed By: #### T SH, CMP ####[facility] Sjssrbrvvi[address] [place], [place] [address]Dr. Madelynlorri Leal Globulin (S) [Mass/Vol] 3.5 g/dL Normal [facility] Comment on above: Performed By: #### T SH, CMP ####[facility] Wefjeqzwyl6[address] [place], [place] [address]Dr. Farhat Leal Glucose [Mass/Vol] 141 mg/dL Critically high 74-106 [facility] Comment on above: Performed By: #### T SH, CMP ####[facility] Ubbgsditsz7[address] [place], [place] [address]Dr. Farhat Leal Potassium [Moles/Vol] 5.2 mmol/L Critically high 3.5-5.1 [facility] Comment on above: Performed By: #### T SH, CMP ####[facility] [address]zemsyhzlp[address] [place], [place] [address]Dr. Farhat Leal Protein [Mass/Vol] 6.0 g/dL Critically low 6.4-8.2 [facility] Comment on above: Performed By: #### T MYRIAM, CMP ####[facility] Sktdpbmkqc[address] [place], [place] [address]Dr. Farhat Leal Sodium [Moles/Vol] 130 mmol/L Critically low 136-145 [facility] Comment on above: Performed By: #### T SH, CMP ####[facility] Eaqjovymwy[address] [place], [place] [address]Dr. Farhat Leal Urea nitrogen [Mass/Vol] 63.0 mg/dL Critically high 7.0-18.0 [facility] Comment on above: Performed By: #### T SH, CMP ####[facility] Yghcovvwyl[address] [place], [place] [address]Dr. Farhat Leal Urea nitrogen/Creatinine [Mass ratio] 28.9 mg/mg Normal [facility] Comment on above: Performed By: #### T SH, CMP ####[facility] Bnjrdhrool[address] [place], [place] [address]Dr. Farhat Leal PROTIMEon 09-18-2021 INR Coag (PPP) [Relative time] 1.06 {INR} Normal [facility] Comment on above: Performed By: #### P T, PTT ####[facility] [address]nrdldqotq[address] [place], [place] [address]DrSkylar Leal INR GUIDELINES SEE BELOW Normal [facility] Comment on above: Result Comment: MALINA RED INR: 2.0 - 3.0 CONDITIONS NOT LISTED BELOW 2.5 - 3.5 FOR PROSTHETIC HEART VALVE REPLACEMENT 2.5 - 3.5 RECURRENT THROMBOSIS Performed By: #### P T, PTT ####[facility] [address]yvzpobhf5[address] [place], [place] [address]Yx. Farhat Leal PT Coag (PPP) [Time] 11.4 s Normal 9.0-11.6 [facility] Comment on above: Performed By: #### P T, PTT ####[facility] [address]ajycwgxu5[address] [place], [place] [address]ZhSkylar Leal PTTon 09-18-2021 aPTT Coag (Bld) [Time] 27.9 s Normal 22.3-36.2 [facility] Comment on above: Performed By: #### P T, PTT ####[facility] Htkxanwlcg1006 [place] [phone] Leal TSHon 09-18-2021 TSH 7.099 uIU/mL Critically high 0.358-3.740 [facility] Comment on above: Performed By: #### T SH, CMP ####[facility] [address]hxlywuwky3239 [place] [address]DrSkylar Leal US SALOME DOP LEG RTon 09-19-19 US SALOME DOP LEG RT Normal [facility] XR CHEST 1 Von 09-18-2021 XR CHEST 1 V Normal [facility] XR HIP RT 2 3V W PELVISon XR HIP RT 2 3V W PELVIS Normal [facility] Vital Signs Date Time Vital Sign Value Performing Clinician Facility 03-18-2023 13:37-0500 Body temperature 98.01 [degF] [place] [employer] Work Phone: [facility] 03-18-2023 13:37-0500 Diastolic blood pressure 64 mm[Hg] [place] [facility] [employer] Work Phone: [facility] 03-18-2023 13:37-0500 Heart rate 72 /min Ni Petznick DO Work Phone: [facility] 03-18-2023 13:37-0500 SaO2% (BldA) [Mass fraction] 98 % Ni Petznick DO Work Phone: [facility] 03-18-2023 13:37-0500 Systolic blood pressure 118 mm[Hg] Nining Whiteznick DO Work Phone: [facility] 07-20-2022 13:35-0400 Body temperature 97.4 [degF] DO Devon Ball Work Phone: [facility] 07-20-2022 13:35-0400 Diastolic blood pressure 50 mm[Hg] DO Devon Ball Work Phone: [facility] 07-20-2022 13:35-0400 Heart rate 67 /min DO Devon Ball Work Phone: [facility] 07-20-2022 13:35-0400 Respiratory rate 20 /min DO Devon Ball Work Phone: [facility] 07-20-2022 13:35-0400 Systolic blood pressure 98 mm[Hg] DO Devon Ball Work Phone: [facility] 06-29-2022 14:46-0400 Body height 193.04 cm DO Devon Ball Work Phone: [facility] 02-26-2022 13:11-0500 Body temperature 96.6 [degF] Hina Peterson MD Work Phone: [facility] 02-26-2022 13:11-0500 Diastolic blood pressure 75 mm[Hg] Hina Peterson MD Work Phone: [facility] 02-26-2022 13:11-0500 Heart rate 75 /min Hina Peterson MD Work Phone: [facility] 02-26-2022 13:11-0500 Systolic blood pressure 88 mm[Hg] Hina Peterson MD Work Phone: [facility] 02-05-2022 08:29-0500 Body temperature 96.69 [degF] [facility] Work Phone: [facility] 02-05-2022 08:29-0500 Diastolic blood pressure 42 mm[Hg] [facility] Work Phone: [facility] 02-05-2022 08:29-0500 Heart rate 79 /min [facility] Work Phone: [facility] 02-05-2022 08:29-0500 SaO2% (BldA) [Mass fraction] 100 % [facility] Work Phone: [facility] 02-05-2022 08:29-0500 Systolic blood pressure 72 mm[Hg] [facility] Work Phone: [facility] 01-12-2022 11:00-0500 Diastolic blood pressure 54 mm[Hg] Alissa Major [employer] Work Phone: [facility] 01-12-2022 11:00-0500 Heart rate 88 /min Alissa Major [employer].SOUND PERSON Work Phone: [facility] 01-12-2022 11:00-0500 SaO2% (BldA) [Mass fraction] 93 % Alissa Major [employer].SOUND PERSON Work Phone: [facility] 01-12-2022 11:00-0500 Systolic blood pressure 96 mm[Hg] Alissa Major [employer].SOUND PERSON Work Phone: [facility] 01-12-2022 10:12-0500 Body temperature 97.9 [degF] Alissa Major [employer].SOUND PERSON Work Phone: [facility] 01-12-2022 10:12-0500 Respiratory rate 18 /min Alissa Major [employer].SOUND PERSON Work Phone: [facility] 11-17-2021 15:59-0400 Body height 193 cm No Reeder DO Work Phone: [facility] 11-17-2021 15:59-0400 Body weight 111.58 kg No Reeder DO Work Phone: [facility] 11-17-2021 15:59-0400 Diastolic blood pressure 59 mm[Hg] No Reeder DO Work Phone: [facility] 11-17-2021 15:59-0400 Heart rate 86 /min No Reeder DO Work Phone: [facility] 11-17-2021 15:59-0400 SaO2% (BldA) [Mass fraction] 97 % No Reeder DO Work Phone: [facility] 11-17-2021 15:59-0400 Systolic blood pressure 104 mm[Hg] No Reeder DO Work Phone: [facility] Encounters Encounter Date Encounter Type Care Provider Facility Start: 09-02-2023 End: 09-02-2023 ambulatory MILAGRO [facility] Start: 06-17-2023 End: 06-17-2023 ambulatory NI CABRERA Not Available Start: 05-19-2023 End: 05-19-[address] 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 Start: 01-14-2023 End: 01-14-2023 ambulatory Devon Moreira Other [employer] Other Start: 01-14-2023 Sbsq nursing facil c are/day minor complj 15 min Devon Rico [facility] Start: 12-10-2022 End: 12-10-2022 ambulatory Devon Moreira Other [employer] Other Start: 12-10-2022 Sbsq nursing facil c are/day minor complj 15 min Devon Rico [facility] Start: 11-12-2022 End: 11-12-2022 ambulatory Devon Moreira Other [employer] Other Start: 11-12-2022 Sbsq nursing facil c are/day minor complj [address] [facility] Start: 10-16-2022 Refill Asia Pike MD Work Phone: [facility] Comment on above: Med Change Request Start: 10-12-2022 End: 10-12-2022 ambulatory Devon Moreira Other [employer] Other Start: 10-12-2022 Telephone encounter Devon Moreira [facility] Start: 10-08-2022 End: 10-08-2022 ambulatory Devon Moreira Other [employer] Other Start: 10-08-2022 Sbsq nursing facil c are/day new problem [address] [facility] Start: 09-22-2022 [facility] Comment on above: Rx Refills Start: 09-10-2022 End: 09-10-2022 ambulatory Devon Moreira Other [employer] Other Start: 09-10-2022 Sbsq nursing facil c are/day new problem [address] [facility] Start: 09-09-2022 End: 09-09-2022 ambulatory [facility] Start: 08-06-2022 End: 08-06-2022 ambulatory Devon Moreira Other [employer] Other Start: 08-06-2022 Sbsq nursing facil c are/day new problem 25 min Devon Moreira [facility] Start: 07-22-2022 End: 07-22-2022 ambulatory Devon Moreira Other [employer] Other Start: 07-22-2022 Telephone encounter [facility] Start: 07-20-2022 End: 07-20-2022 ambulatory Sadia Luisey Facility:[facility] Start: 07-20-2022 End: 07-20-2022 ambulatory DO Devon Moreira Work Phone: [facility] Work Phone: Start: 07-20-2022 End: 07-20-2022 Discharged Recurring DO Devon Moreira Work Phone: [facility] Work Phone: Start: 07-13-2022 End: 07-13-[address] DEVON MOREIRA Facility:[facility]1 Start: 07-10-2022 End: 07-10-[address] DEVON MOREIRA Facility:[facility] Start: 07-03-2022 End: 07-03-[address] DEVON MOREIRA Facility:[facility]1 Start: 06-26-2022 End: 06-26-[address] DEVON MOREIRA Facility:[facility] Start: 06-26-2022 End: 06-26-[address] DEVON MOREIRA Facility:[facility] Start: 06-25-2022 End: 06-25-2022 ambulatory Devon Moreira Other [employer] Other Start: 06-25-2022 Sbsq nursing facil c are/day minor complj 15 min Devon Moreira [facility] Start: 06-19-2022 End: 06-19-[address] DEVON MOREIRA Facility:[facility]1 Start: 06-15-2022 End: 07-15-2022 ambulatory SHAIKH Kate MURRAY Facility:[facility]1 Start: 06-12-2022 End: 06-12-[address] DOCTOR WALSH Facility:[facility]1 Start: 06-05-2022 Sbsq nursing facil c are/day new problem 25 min Devon Moreira [facility] Start: 06-05-2022 End: 06-05-[address] DEVON MOREIRA [facility] [employer] Other Start: 05-29-2022 End: 05-29-[address] DEVON MOREIRA Facility:H1 Start: 05-22-2022 End: 05-22-[address] DEVON MOREIRA Facility:[facility]1 Start: 05-20-2022 End: 05-20-[address] DEVON MOREIRA Facility:[facility]1 Start: 05-18-2022 End: 06-12-2022 ambulatory SHAIKH Kate MURRAY Facility:[facility]1 Start: 05-15-2022 End: 05-15-[address] DEVON MOREIRA Facility:[facility]1 Start: 05-13-2022 End: 05-13-2022 ambulatory Van Olivarez APRN.SOUND PERSON Work Phone: [facility] Comment on above: results Start: 05-13-2022 E-mail encounter fro m caregiver Van Olivarez APRN.SOUND PERSON Work Phone: [facility] Start: 05-08-2022 End: 05-08-[address] DEVON MOREIRA Facility:[facility]1 Start: 05-07-2022 End: 05-07-2022 ambulatory Devon Moreira Other [employer] Other Start: 05-07-2022 Sbsq nursing facil c [...] MOREIRA Facility:H1 Start: 04-02-2022 ambulatory Van cortes APRN.SOUND PERSON Work Phone: [facility] Start: 04-01-2022 End: 04-01-[address] DEVON [...] ransplant (Primary Dx); 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; 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 Start: 01-26-2022 End: 01-26-[address] DEVON MOREIRA Facility:[facility]1 Start: 01-20-2022 Telephone encounter Van Olivarez APRN.CNP Work Phone: [facility] Comment on above: Results Start: 01-19-2022 End: 01-19-[address] DEVON MOREIRA Facility:[facility]1 Start: 01-16-2022 ambulatory SHAIKH Kate MURRAY Facilit y:H1 Start: 01-12-2022 End: 01-12-2022 Subsequent hospital visit by physician Alissa Chavira APRN.SOUND PERSON Work Phone: [facility] Comment on above: ILIANA (acute kidney in jury) ([facility]) [N17.9] Start: 12-30-2021 End: 12-30-2021 ambulatory Paresh Fonseca MD Work Phone: Infectious Disease Comment on above: MRSA bacteremia (Arabella munira Dx); Diabetic foot ulcer with osteomyelitis (HCC) Start: 12-30-2021 End: 12-30-2021 Telemedicine consultation with patient Paresh Fonseca MD Work Phone: [facility] Start: 12-29-2021 End: 12-29-[address] [...] Start: 12-08-2021 Orders Only Artur Burger ry [employer]STATE JOB TITLES.SOUND PERSON Work Phone: [facility] Comment on above: Kidney replaced by t ransplant (Primary Dx) Start: 12-07-2021 ambulatory Paresh Fonseca MD Work Phone: [facility] Comment on above: CoPat Start (copat s top 12/27/21) Start: 12-05-2021 Telephone encounter Paresh Fonseca MD Work Phone: Infectious Disease Comment on above: Patient Update (evus held discussion/) Start: 12-01-2021 Follow-up encounter [facility] Provider [facility] Start: 12-01-2021 Patient encounter procedure [facility] Prov ider [facility] Department Start: 11-23-2021 End: 11-28-2021 Evaluation [...] encounter Start: 11-14-2021 End: 11-15-2021 ambulatory [facility] Facility:H1 Start: 10-24-2021 End: 11-15-2021 ambulatory SHAIKH Kate MURRAY Facility:H1 Start: 10-22-2021 End: 10-23-2021 ambulatory [facility] Facility:[facility]1 Start: 10-06-2021 ambulatory Van cortes [employer] ESTATE JOB TITLES.SOUND PERSON Work Phone: [facility] Start: 09-30-2021 Refill Asia Pike MD Work Phone: [facility] Comment on above: Refill Request Start: 09-19-2021 End: 09-24-2021 Evaluation and management of inpatient DR PROSPER LEES Facility:H1 Start: 09-18-2021 End: 09-19-[address] DEVON MOREIRA Facility:H1 Start: 07-11-2021 Refill Asia Pike MD Work Phone: [facility] Comment on above: Refill Request Start: 06-05-2021 Telephone encounter Van Olivarez [employer] ESTATE JOB TITLES.SOUND PERSON Work Phone: [facility] Comment on above: Results Start: 02-05-2021 End: 02-13-2021 ambulatory UNKNOWN PROVIDER Facility:[facility] Procedures Date Procedure Procedure Detail Performing Clinician Start: 05-19-2023 Follow-up visit Follow-up CAITY IBRAHIM Start: 03-18-2023 Hemoglobin glycosyla rk a1c Ni Cabrera DO Work Phone: Start: 02-05-2022 Creatinine other source Asia Pike MD Work Phone: Start: 02-05-2022 Urnls dip stick/tabl et rgnt auto w/o microscopy Asia Pike MD Work Phone: Start: 01-12-2022 Prothrombin time Alissa Chavira APRN.SOUND PERSON Work Phone: Start: 12-01-2021 PACEMAKER CLINIC CHECK [facility] Provider Start: 11-29-2021 Microscopic examinat ion of blood, culture DR PROSPER LEES Comment on above: Performed By: #### B [id number] ####[place] [id number] Leal Start: 11-27-2021 Insertion of Infusio n [...] renal transplant KIDNEY TRANSPLANT STATUS Van Krusejaylan REAL ESTATE JOB TITLES.SOUND PERSON Work Phone: History of renal transplant Kidney replaced by transplant Artur Chen APRN.SOUND PERSON Work Phone: History of renal transplant Kidney replaced by transplant Kidney [facility] Work Phone: History of renal transplant Devon Moreira Other History of renal transplant Kidney replaced by transplant Asia Pike MD Work Phone: History of renal transplant Devon Rico Other Plan of Treatment Date Care Activity Detail Author Start: 06-17-2023 End: 06-17-2023 Patient encounter procedure 06/17/2023 2:15 PM EDT Office Visit [facility] [address] [place] [address] Ni Cabrera, DO [address] [place] [address] [facility] [address] Start: 06-16-2023 Hemoglobin A1c measurement Diabetes: Hemoglobin A1C [facility] Start: 02-26-2023 BP CONTROLLED (<130/80) BP CONTROLLE D (<130/80) [facility] Start: 02-05-2023 BP CONTROLLED (<130/80) BP CONTROLLE D (<130/80) [facility] Start: 01-12-2023 BP CONTROLLED (<130/80) BP CONTROLLE D (<130/80) [facility] Start: 11-17-2022 BP CONTROLLED (<130/80) BP CONTROLLE D (<130/80) [facility] Start: 10-16-2022 Influenza vaccination C [facility] Start: 05-15-2022 Medicare Annual Wellness (AWV) Medicare Annual Wellness (AWV) [facility] Start: 04-08-2022 BP CONTROLLED (<130/80) BP CONTROLLE D (<130/80) [facility] Start: 02-15-2022 ADVANCE DIRECTIVE DISCUSSION ADVANCE DIRECTIVE DISCUSSION [facility] Start: 02-15-2022 DEPRESSION ASSESSMENT DEPRESSION ASS ESSMENT [facility] Start: 02-05-2022 COVID-19 VACCINE (5 - Yung risk series) COVID-19 VACCINE (5 - Yung risk series) [facility] Start: 11-27-2021 COVID-19 VACCINE (4 - Booster for Yung series) COVID-19 VACCINE (4 - Booster for Yung series) [facility] Start: 11-04-2021 Hemoglobin A1c/Hemoglobin.total in Blood HBA1C [facility] Start: 10-16-2021 Influenza vaccination C [facility] Start: 03-26-2021 COVID-19 VACCINE (3 - Yung risk 3-dose series) COVID-19 VACCINE (3 - Yung risk 3-dose series) [facility] Start: 03-26-2021 COVID-19 VACCINE (3 - Yung risk series) COVID-19 VACCINE (3 - Yung risk series) [facility] Start: 02-15-2021 ADVANCE DIRECTIVE DISCUSSION ADVANCE DIRECTIVE DISCUSSION [facility] Start: 02-15-2021 DEPRESSION ASSESSMENT DEPRESSION ASS ESSMENT [facility] Start: 01-05-2016 Hepatitis B screening URINE AL BUMIN:CREATININE RATIO [facility] Start: 07-31-2015 Pneumococcal Vaccine : 65+ Years (3 - PCV) Pneumococcal Vaccine: 65+ Years (3 - PCV) [facility] Start: 04-06-2015 Hemoglobin A1c/Hemoglobin.total in Blood HBA1C [facility] Start: 11-22-2010 Hepatitis B surface antibody level LDL CHOLESTEROL [facility] Start: 2009 ADULT PREVNAR-13 ADULT PREVNAR-13 Cl [facility] Start: 2009 PNEUMOVAX AGE 65 AND OVER WITH 5YR LOOKBACK (#1) PNEUMOVAX AGE 65 AND OVER WITH 5YR LOOKBACK (#1) [facility] Start: 1994 SHINGRIX VACCINE (1 of 2) SHINGRIX VACCINE (1 of 2) [facility] Start: 10-18-1963 HEPATITIS A (1 of 2 - Risk 2-dose series) HEPATITIS A (1 of 2 - Risk 2-dose series) [facility] Start: 10-18-1963 Hepatitis A Vaccine (1 of 2 - Risk 2-dose series) Hepatitis A Vaccine (1 of 2 - Risk 2-dose series) [facility] Start: 10-18-1963 SHINGRIX VACCINE (1 of 2) SHINGRIX VACCINE (1 of 2) [facility] Start: 10-18-1963 Urine microalbumin profile [facility] Start: 1962 ANNUAL PCP TEAM RAG COLLECTOR MATTHEW DISEASE VISIT ANNUAL PCP TEAM CHRONIC DISEASE VISIT [facility] Start: 1956 Adult depression screening assessment DEPRESSION SCREENING [facility] Start: 1954 3 comp foot exam completed DIABETIC FOOT EXAM [facility] Start: 1954 Glaucoma screening Diabetes: R etinopathy Screening [facility] Start: 1954 Hepatitis C antibody , confirmatory test DILATED RETINAL EXAM [facility] Start: 1950 Pneumococcal Vaccine : 65+ (1 - PCV) Pneumococcal Vaccine: 65+ (1 - PCV) [facility] Start: 1950 PNEUMOCOCCAL: 65+ (1 - PCV) PNEUMOCOCCAL: 65+ (1 - PCV) [facility] Start: 1945 HEPATITIS A (1 of 2 - Risk 2-dose series) HEPATITIS A (1 of 2 - Risk 2-dose series) [facility] URINALYSIS, REFLEX MICROSCOPIC URINALYSIS, REFLEX MICROSCOPIC Lab Routine Screening for genitourinary condition Ordered: 10/06/2021 [facility] Work Phone: Comment on above: Ordered: 10/06/2021 URINALYSIS, REFLEX MICROSCOPIC URINALYSIS, REFLEX MICROSCOPIC Lab Routine Screening for genitourinary condition Ordered: 04/02/2022 [facility] Work Phone: Comment on above: Ordered: 04/02/2022 End: 11-17-2022 US LEG ARTERIAL PERIPH UNL VAS LAB US LEG ARTERIAL PERIPH UNL VAS LAB Vascular Lab Routine PAD (peripheral artery disease) (HCC) Nonhealing ulcer of heel (HCC) 1 Occurrences starting 11/17/2021 until 11/17/2022 [facility] Work Phone: Comment on above: 1 Occurrences starti ng 11/17/2021 until 11/17/2022 End: 11-17-2022 US LEG VEIN DVT UNL VAS LAB US LEG VEIN DVT UNL VAS LAB Vascular Lab Routine Acute deep vein thrombosis (DVT) of proximal end of right lower extremity (HCC) 1 Occurrences starting 11/17/2021 until 11/17/2022 [facility] Work Phone: Comment on above: 1 Occurrences starti ng 11/17/2021 until 11/17/2022 [facility]ERS [facility] & VAS DANIEL BROTHERS CT & VAS [facility] Immunizations Immunization Date Immunization Notes Care Provider [facility] 12-11-2021 COVID-19 booster vaccine, age 12+ yr, bivalent (PFIZER-BIONTTraitWare) Paresh Fonseca MD Work Phone: [facility] 12-11-2021 influenza, high-dose , quadrivalent vaccine (FLUZONE HIGH DOSE QUADRIVALENT) Paresh Fonseca MD Work Phone: [facility] 12-11-2021 influenza virus vaccine, unspecified formulation [facility] 10-24-2021 influenza, high dose seasonal, preservative-free Ni Petznick DO Work Phone: [facility] 01-19-2019 influenza, high dose seasonal, preservative-free Ni Petznick DO Work Phone: [facility] 11-25-2017 Seasonal trivalent influenza vaccine, adjuvanted, preservative free Ni Petznick DO Work Phone: [facility] 11-05-2016 influenza, high dose seasonal, preservative-free Ni Petznick DO Work Phone: [facility] 07-30-2014 pneumococcal polysaccharide vaccine, 23 valent Ni Cabrera DO Work Phone: [facility] 03-09-2011 influenza virus vaccine, unspecified formulation Van Olivarez [employer] J[employer].SOUND PERSON Work Phone: [facility] 12-17-2007 influenza virus vaccine, unspecified formulation Van Lard [employer] ESTATE J[employer].SOUND PERSON Work Phone: [facility] Work Phone: 02-11-2006 influenza virus vaccine, unspecified formulation Van Lard [employer] ESTATE J[employer] T[employer].SOUND PERSON Work Phone: [facility] Work Phone: 12-07-2003 influenza virus vaccine, unspecified formulation Van Lard [employer] J[employer].SOUND PERSON Work Phone: [facility] Work Phone: 12-07-2003 pneumococcal polysaccharide vaccine, 23 valent Van Olivarez [employer] E[employer] J[employer].SOUND PERSON Work Phone: [facility] Work Phone: NEGATED: Highlighted row has not occurred!12-10-2021 COVID-19 booster vaccine, age 12+ yr, bivalent (PFIZER-BIONTTraitWare) Paresh Fonseca MD Work Phone: [facility] NEGATED: Highlighted row has not occurred!12-10-2021 influenza, high-dose, quadrivalent vaccine (FLUZONE HIGH DOSE QUADRIVALENT) Paresh Fonseca MD Work Phone: [facility] Payers Date Payer Category Payer Medicare MEDICARE MEDICAR E A AND B [id number] 2009-Present [phone] [place] [address] Medicare [id number] 2009 Medicare [id number] .[id number] 2009 Unknown [employer] [employer] MEDIC[place] SUPPLEMENT [id number] 2009-Present [phone] [address] [place] [address] Indemnity [id number] [id number] .[id number] 2009 Unknown [id number]. 1.13.159.2.7.3 .257990.315 2009 Unknown [id number] 2.16.8 40.1.452210.19 2009 Unknown [id number] 1959 Medicare [id number] 1959 Self-pay 1944 Unknown [id number] 2.16.840.1.768819.3.579.2.732 1944 Unknown [id number] 2.16.840.1.874244.3.579.2.593 1944 Unknown [id number] 2.16.840.1.100767.3.579.2.593 1944 Unknown [id number] 2.16.840.1.565829.3.579.2.593 1944 Unknown [id number] 2.16.840.1.379067.3.579.2.593 1944 Unknown [id number] 2.16.840.1.384119.3.579.2.593 1944 Unknown [id number] 2.16.840.1.185796.3.579.2.593 1944 Unknown [id number] 2.16.840.1.583968.3.579.2.593 1944 Unknown [id number] 2.16.840.1.250154.3.579.2.593 1944 Unknown [id number] 2.16.840.1.753674.3.579.2.593 1944 Unknown [id number] 2.16.840.1.950535.3.579.2.593 1944 Unknown [id number] 2.16.840.1.708309.3.579.2.593 1944 Unknown [id number] 2.16.840.1.342847.3.579.2.593 1944 Unknown [id number] 2.16.840.1.842392.3.579.2.593 1944 Unknown [id number] 2.16.840.1.235872.3.579.2.593 1944 Unknown [id number] 2.16.840.1.292153.3.579.2.593 1944 Unknown [id number] 2.16.840.1.846896.3.579.2.593 1944 Unknown [id number] 2.16.840.1.817414.3.579.2.593 1944 Unknown [id number] 2.16.840.1.419583.3.579.2.593 1944 Unknown [id number] 2.16.840.1.302209.3.579.2.593 1944 Unknown [id number] 2.16.840.1.506540.3.579.2.593 1944 Unknown [id number] 2.16.840.1.155137.3.579.2.593 1944 Unknown [id number] 2.16.840.1.367419.3.579.2.593 1944 Unknown [id number] 2.16.840.1.562257.3.579.2.593 1944 Unknown [id number] 2.16.840.1.822107.3.579.2.593 1944 Unknown [id number] 2.16.840.1.343813.3.579.2.593 1944 Unknown [id number] 2.16.840.1.872272.3.579.2.593 1944 Unknown [id number] 2.16.840.1.219242.3.579.2.593 1944 Unknown [id number] 2.16.840.1.566410.3.579.2.593 1944 Unknown [id number] 2.16.840.1.158863.3.579.2.593 1944 Unknown [id number] 2.16.840.1.296403.3.579.2.593 1944 Unknown [id number] 2.16.840.1.148340.3.579.2.593 1944 Unknown [id number] 2.16.840.1.178638.3.579.2.593 1944 Unknown [id number] 2.16.840.1.402378.3.579.2.593 1944 Unknown [id number] 2.16.840.1.141523.3.579.2.593 1944 Unknown [id number] 2.16.840.1.612363.3.579.2.593 1944 Unknown [id number] 2.16.840.1.985722.3.579.2.593 1944 Unknown [id number] 2.16.840.1.264057.3.579.2.593 1944 Unknown [id number] 2.16.840.1.142929.3.579.2.593 1944 Unknown [id number] 2.16.840.1.113007.3.579.2.593 1944 Unknown [id number] 2.16.840.1.045221.3.579.2.593 1944 Unknown [id number] 2.16.840.1.542328.3.579.2.593 1944 Unknown [id number] 2.16.840.1.793739.3.579.2.593 1944 Unknown [id number] 2.16.840.1.440100.3.579.2.593 1944 Unknown [id number] 2.16.840.1.673375.3.579.2.593 1944 Unknown [id number] 2.16.840.1.377538.3.579.2.593 1944 Unknown [id number] 2.16.840.1.609826.3.579.2.593 1944 Unknown [id number] 2.16.840.1.078022.3.579.2.125 9 1944 Unknown [id number] 2.16.840.1.092065.3.579.2.125 9 Medicare Medicare Outpatient [id number] 2T [id number] Unknown [id number] 2.16.840.1.117726.3.579.2.593 Unknown [id number] 2.16.840.1.069868.3.579.2.593 Unknown [id number] 2.16.840.1.324805.3.579.2.531 Social History Date Type Detail Facility Start: 03-09-2011 End: 07-07-2022 Tobacco smoking status NHIS Ex-smoker [facility] Work Phone: End: 02-15-1975 History of tobacco use Current smoker [facility] Work Phone: End: 02-15-1975 History of tobacco use Cigarette Smoker [facility] Work Phone: Start: 04-08-2021 End: 01-12-2023 Alcohol intake Current drinker of alcohol (finding) [facility] Start: 1945 Sex Assigned At Not on file C [facility] Start: 03-09-2011 End: 10-20-2022 Cigarettes smoked current (pack per day) - Reported 1 [facility] Work Phone: Start: 03-09-2011 End: 02-26-2022 Tobacco use and exposure Smokeless tobacco non-user [facility] Start: 09-25-2021 History SDOH Financial 5 [facility] Start: 09-25-2021 History SDOH Food Worry 1 [facility] Start: 09-25-2021 History SDOH Transpo rt Med 2 [facility] Start: 09-14-2021 End: 01-12-2022 Exposure to SARS-CoV-2 (event) Not sure [facility] Start: 02-26-2022 End: 10-20-2022 Sex Assigned At [facility] Work Phone: Start: 1945 Sex Assigned At Male F [facility] How hard is it for y ou to pay for the very basics like food, housing, medical care, and heating Not hard at all [facility] Work Phone: (I/We) worried shiloh er (my/our) food would run out before (I/we) got money to buy more. Never true [facility] Work Phone: In the past 12 month s, was there a time when you were not able to pay the mortgage or rent on time? No [facility] Work Phone: Start: 03-18-2023 Alcohol intake Ex-drinker (finding) [facility] How often to you hav e a drink containing alcohol? Never [facility] Medical Equipment Procedure Code Equipment Code Equipment Original Text Equipment Identifier Dates Tray Powerline S urecuff 5fr Polyurethane Catheter 1 Lumen Microintroducer - [id number] Start: 12-06-2021 Clinical Notes 06-05-2021 to [...] at about 50-60 systolic. 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 Alvarez 03/2021 Mr. Almonte, [place] , presents to clinic for routine [...] of the right coronary artery with robust uyom-sc-ksokl collaterals. 5. Normal global left ventricular systolic [...] Follow up with Dr. Galvez in the [facility] in the next 2 weeks; he may follow up with Dr. Orosco as needed for interventional issues. 5. Follow up wi (more content not included)... [facility] 04-11-2023 Evaluation note Encounter Date Diagnosis Assessment [...] (ICD-10 - Z89.619) WC dependent. 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 He is being transported by a petrol tanker driver. 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 Graydon H [place] control is stable overall. , The patient [...] in the morning. CONTINUOUS BLOOD GLUC SENSOR (TheMobileGamer (TMG)STYLE SHAAN 14 DAY SENSOR) MISC Inject 1 [...] in the morning. documented in this encounterMissouri [facility]-[id number] Evaluation note* Encounter Date Diagnosis Assessment Notes [...] are maintaining regular scheduled appts with their education program associate. No bleeding complications Dec, Hyperlipidemia LDL goal [...] (current) use of insulin (ICD-10 - Z79.4) [facility] Other 10-26-2023 Evaluation note* Encounter Date Diagnosis Assessment Notes Treatment Notes Treatment Clinical Notes Nov, Longstanding persistent atrial fibrillation (ICD-10 - I48.11) This patient is in NSR or rate controlled. This patient is anticoagulated to prevent thromboembolic events. They are maintaining regular scheduled appts with their education program associate. 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 No bleeding complications Oct, Type 1 diabetes [...] (current) use of insulin (ICD-10 - Z79.4) [facility] Other 09-01-2023 Miscellaneous Notes* Telephone Encounter - Mary Martinez - 10/16/2022 1:08 PM EDT Pharmacy comment: REQUEST FOR 90 DAYS PRESCRIPTION. DX Code Needed. 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 No bleeding complications Sep, Type 1 diabetes [...] Z94.0) f/u transplant clinic Continue surveillance labs [facility] Other 08-08-2023 Miscellaneous Notes* Telephone Encounter - Ariadna Mcdowell Tech - 09/22/2022 8:58 AM EDT Pharmacy requesting refills as follows: Requested Prescriptions Pending Prescriptions Disp Refills tacrolimus IR (PROGRAF) 1 mg capsule Sig: Take 1 capsule by mouth DAILY AT 6 PM. Please review and advise. Ariadna Mcdowell, documented in this encounterOhiohealth Shelby Hospital07-27-2023 Evaluation note* Encounter Date Diagnosis Assessment Notes Treatment Notes Treatment Clinical Notes Aug, Longstanding persistent atrial fibrillation (ICD-10 - I48.11) This patient is in NSR or rate controlled. This patient is anticoagulated to prevent thromboembolic events. They are maintaining regular scheduled appts with their education program associate. No s/s bleeding Aug, Type 1 diabetes [...] - Z94.0) Continue close surveillance w/ labs [facility] Other 07-26-2023 NoteUT Electrophysiology Consult Note Reason [...] at about 50-60 systolic. patient with friend/ petrol tanker driver from facility, we will take patient to the ER for evaluation --------- Per dr. Alvarez 03/2021 Mr. Almonte, [place] , presents to clinic for routine [...] of the right coronary artery with robust rjnz-ad-aaypw collaterals. 5. Normal global left ventricular systolic [...] Follow up with Dr. Galvez in the [facility] in the next 2 weeks; he may follow up with Dr. Orosco as needed for interventional issues. 5. Follow up with Dr. Devon Moreira as scheduled. PMH: Past Medical History: Diagnosis Date Abnormal ECG Arrhythmia Atrial fibrillation (CMS/HCC) Chronic kidney disease Coronary artery disease Diabetes mellitus (CMS/HCC) (more content not included)...[facility]07-26-2023 NotePatient here for 1.5 year follow up and device check. Lightheaded in the office today, as BP is very low. He denies chest pain, SOB, palpitations, and bleeding on warfarin. Had routine labs last week. Review of Systems Musculoskeletal: Positive for arthritis, joint pain and myalgias. Neurological: Positive for light-headedness. All other systems reviewed and are negative.[facility] 08-06-2022 Evaluation note* Encounter Date Diagnosis Assessment [...] are maintaining regular scheduled appts with their education program associate. No bleeding complications Jul, Type 1 diabetes [...] risk for cerebrovascular and cardiovascular disease. 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 insulin (ICD-10 - Z79.4) Jul, Kidney transplant status (ICD-10 - Z94.0) Monthly labs, ongoing surveillance from transplant clinic [facility] Other 05-15-2023 Progress note Author Sadia Aguilar [facility] June 29, 2022 2:47pm Note Date/Time June 29, 2022 2:46p m [facility] [address] [place] [address] Wound Center Provider Note Signed Patient: Alex Almonte MR#: [id number] : 1945 Acct:[id number] Age/Sex: 76 / M Copies to: DO Sadia Whyte, DAVID~ HPI Date of Visit Date of Visit: Date of Service: 06/29/2022 Time of Service: 14:45 Narrative HPI: 12/30/21 Alex is a 76 year old male presenting to [facility] wound care for aninitial visit for eval and treatment of a sacral/coccyx area pressure ulcer. He resides at [facility]. There is an FIBER OPTIC TECHNICIAN present for the visit. Medicalhoney gel will [...] his brief that was cleaned by this scientific technical writer as well as another nursing [...] from initial visit here Mode of Arrival/ Roll Up Machine Operator: Facility vehicle Assistive Device Used Today: Wheelchair and Indra Lives with:: Care/Nursing Facility Appetite Description: Within Normal Limits Who helps w/ dressing change?: Nursing Facility Why Do You Need Help?: Can't Reach Ulcer, Limited mobility and Taxing effort to leave home Smoking Status: Former smoker [facility] Medical History (Updated 03/03/22 @ 14:41 [...] Ulcer/Injury Staging: Unstageable Bed Appearance: Beefy Red, [place], Yellow and Rolled Edges Percent of Wound [...] By: <Electronically signed by DAVID Aguilar> 06/29/221446 [facility] Work Phone: 1(632) 622-183805-11-2023 Evaluation note* Encounter Date Diagnosis Assessment Notes [...] are maintaining regular scheduled appts with their education program associate. No bleeding complications June, Hyperlipidemia LDL goal <100 (ICD-10 - E78.5) Instructed on diet and exercise with continued statin therapy.Discussed the beneficial effects of lowering cholesterol in reducing the risk for cerebrovascular and cardiovascular disease. June, intermediate (current) use of insulin (ICD-10 - Z79.4) June, Kidney transplant status (ICD-10 - Z94.0) No s/s rejection [facility] Other 04-24-2023 Progress note Author Sadia Aguilar [facility] June 08, 2022 2:10pm Note Date/Time June 08, 2022 2:1 0pm [facility] [address] [place] [address] Wound Center Provider Note Signed Patient: Alex Almonte MR#: [id number] : 1945 Acct:[id number] Age/Sex: 76 / M Copies to: DO Sadia Whyte APRN~ HPI Date of Visit Date of Visit: Date of Service: 06/08/2022 Time of Service: 14:07 Narrative HPI: 12/30/21 Alex is a 76 year old male presenting to [facility] wound care for aninitial visit for eval and treatment of a sacral/coccyx area pressure ulcer. He resides at [facility]. There is an FIBER OPTIC TECHNICIAN present for the visit. Medicalhoney gel will [...] his brief that was cleaned by this scientific technical writer as well as another nursing [...] from initial visit here Mode of Arrival/ Roll Up Machine Operator: Facility vehicle Assistive Device Used Today: Wheelchair and Indra Lives with:: Care/Nursing Facility Appetite Description: Within Normal Limits Who helps w/ dressing change?: Nursing Facility Why Do You Need Help?: Can't Reach Ulcer, Limited mobility and Taxing effort to leave home Smoking Status: Former smoker [facility] Medical History (Updated 03/03/22 @ 14:41 [...] Ulcer/Injury Staging: Unstageable Bed Appearance: Beefy Red, [place], Yellow and Rolled Edges Percent of Wound [...] signed by DAVID Aguilar> 06/08/22 1410 [facility] Work Phone: 1(996) 167-386804-21-2023 Evaluation note* Encounter Date Diagnosis Assessment Notes [...] are maintaining regular scheduled appts with their education program associate. May, intermediate (current) use of insulin (ICD-10 - Z79.4) May, Kidney transplant status (ICD-10 - Z94.0) routine labs per clinic. 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 No open ulcerations present Pain controlled [facility] Other 03-27-2023 Progress note Author Sadia Aguilar [facility] May 11, 2022 1:41pm Note Date/Time May 11, 2022 1:4 0pm [facility] [address] [place] [address] Wound Center Provider Note Signed Patient: Alex Almonte MR#: [id number] : 1945 Acct:[id number] Age/Sex: 76 / M Copies to: DO Sadia Whyte APRN~ HPI Date of Visit Date of Visit: Date of Service: 05/11/2022 Time of Service: 13:38 Narrative HPI: 12/30/21 Alex is a 76 year old male presenting to [facility] wound care for aninitial visit for eval and treatment of a sacral/coccyx area pressure ulcer. He resides at [facility]. There is an FIBER OPTIC TECHNICIAN present for the visit. Medicalhoney gel will [...] his brief that was cleaned by this scientific technical writer as well as another nursing [...] from initial visit here Mode of Arrival/ Roll Up Machine Operator: Facility vehicle Assistive Device Used Today: [...] Ulcer/Injury Staging: Unstageable Bed Appearance: Beefy Red, [place] and Yellow Percent of Wound Bed Granulated/Red: [...] <Electronically signed by DAVID Aguilar> 05/11/22 1341 [facility] Work Phone: [phone]) 595-961603-23-2023 Evaluation note* Encounter Date Diagnosis Assessment Notes [...] are maintaining regular scheduled appts with their education program associate. Apr, Type 1 diabetes mellitus with hyperglycemia [...] Serial labs by clinic Hydrate, avoid NSAIDS [facility] Other 03-10-2023 NoteHNO ID: [id number] Author: Keyur Brown MD Service: ? Author Type: Physician Type: Progress Notes Filed: 04/24/2022 10:32 AM Note Text: Encounter opened in error, patient not seen.[facility]02-28-2023 Progress note Author Sadia Aguilar [facility] April 14, 2022 2:19pm Note Date/Time April 14, 2022 2:18pm [facility] [address] [place] [address] Wound Center Provider Note Signed Patient: Alex Almonte MR#: [id number] : 1945 Acct:[id number] Age/Sex: 76 / M Copies to: DO Sadia Whyte APRN~ HPI Date of Visit Date of Visit: Date of Service: 04/14/2022 Time of Service: 14:18 Narrative HPI: 12/30/21 Alex is a 76 year old male presenting to [facility] wound care for aninitial visit for eval and treatment of a sacral/coccyx area pressure ulcer. He resides at [facility]. There is an FIBER OPTIC TECHNICIAN present for the visit. Medicalhoney gel will [...] his brief that was cleaned by this scientific technical writer as well as another nursing [...] from initial visit here Mode of Arrival/ Roll Up Machine Operator: Facility vehicle Assistive Device Used Today: Wheelchair and Indra Lives with:: Care/Nursing Facility Appetite Description: Within Normal Limits Who helps w/ dressing change?: Nursing Facility Why Do You Need Help?: Can't Reach Ulcer, Limited mobility and Taxing effort to leave home Smoking Status: Former smoker [facility] Medical History (Updated 03/03/22 @ 14:41 [...] Ulcer/Injury Staging: Unstageable Bed Appearance: Beefy Red, [place] and Yellow Percent of Wound Bed Granulated/Red: [...] <Electronically signed by DAVID Aguilar> 04/14/22 141 [facility] Work Phone: 1(209) 483-428702-16-2023 NotePatient Outreach (KIMBERLY) ALEX ALMONTE ([id number]) 1945 M [facility] Date Time Provider Department 04/02/22 VAN OLIVAREZ During your visit today, we recorded the following information about you: Allergies As of Date: 04/02/2022 Noted Allergy Reaction PYRIDOSTIGMINE BROMIDE 08/04/2021 8 - GI Upset Date Reviewed: 02/26/2022 Reviewed by: Braden Abel MA - Fully Assessed Visit Diagnosis:Screening for genitourinary condition [Z13.89] Order(s):URINALYSIS, REFLEX MICROSCOPIC [RDD9512] Order #: [id number] Prescriptions as of 04/06/2022 - tacrolimus IR [...] by mouth daily with lunch. 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/2002 DIABETES UNCOMPL ADULT-UNCONTRLLED [PNP0883] 02/24/2002 KIDNEY TRANSPLANT STATUS [Z94.0] 09/07/2003 PROPHYLACTIC IMMUNOTHERAPY [Z29.8] 07/30/2006 DAY CARE ATTENDANT STEROIDS [KBT3826] 07/30/2006 VITAMIN D DEFICIENCY NOS [E55.9] 09/07/2008 [...] diabetes mellitus with diabetic peripher*11/29/2021 Atherosclerosis of confederated salish artery of extremity w*11/29/2021 Malnutrition of moderate degree (HCC) [E44.0] 12/01/2021 Dermatitis associated with moisture [L30.8] 12/04/2021 Encounter Status:Closed by [facility] on 04/06/22[facility] 03-30-2022 Miscellaneous Notes* Telephone Encounter [...] pharmacy. Katina Duque documented in this encounterOhiohealth [facility] Hospital02-07-2023 Progress note Author Sadia Aguilar [facility] March 24, 2022 3:00pm Note Date/Time March 24, 2022 2 :59pm [facility] [address] [place] [address] Wound Center Provider Note Signed Patient: Alex Almonte MR#: [id number] : 1945 Acct:[id number] Age/Sex: 76 / M Copies to: DO Sadia Whyte APRN~ HPI Date of Visit Date of Visit: Date of Service: 03/24/2022 Time of Service: 14:58 Narrative HPI: 12/30/21 Alex is a 76 year old male presenting to [facility] wound care for aninitial visit for eval and treatment of a sacral/coccyx area pressure ulcer. He resides at [facility]. There is an FIBER OPTIC TECHNICIAN present for the visit. Medicalhoney gel will [...] his brief that was cleaned by this scientific technical writer as well as another nursing [...] from initial visit here Mode of Arrival/ Roll Up Machine Operator: Facility vehicle Assistive Device Used Today: Wheelchair and Indra Lives with:: Care/Nursing Facility Appetite Description: Within Normal Limits Who helps w/ dressing change?: Nursing Facility Why Do You Need Help?: Can't Reach Ulcer, Limited mobility and Taxing effort to leave home Smoking Status: Former smoker [facility] Medical History (Updated 03/03/22 @ 14:41 [...] Ulcer/Injury Staging: Unstageable Bed Appearance: Beefy Red, [place] and Yellow Percent of Wound Bed Granulated/Red: [...] signed by DAVID Aguilar> 03/24/22 [address] [facility] Work Phone: 1(755) 970-480101-17-2023 Progress note Author Sadia Aguilar [facility] March 03, 2022 2:41pm Note Date/Time March 03, 2022 2 :41pm [facility] [address] [place] [address] Wound Center Provider Note Signed Patient: Alex Almonte MR#: [id number] : 1945 Acct:[id number] Age/Sex: 76 / M Copies to: Devon Moreira,DO Sadia Aguilar APRN~ HPI Date of Visit Date of Visit: Date of Service: 03/03/2022 Time of Service: 14:38 Narrative HPI: 12/30/21 Alex is a 76 year old male presenting to [facility] wound care for aninitial visit for eval and treatment of a sacral/coccyx area pressure ulcer. He resides at [facility]. There is an FIBER OPTIC TECHNICIAN present for the visit. Medicalhoney gel will [...] his brief that was cleaned by this scientific technical writer as well as another nursing [...] from initial visit here Mode of Arrival/ Roll Up Machine Operator: Facility vehicle Assistive Device Used Today: Wheelchair and Indra Lives with:: Care/Nursing Facility Appetite Description: Within Normal Limits Who helps w/ dressing change?: Nursing Facility Why Do You Need Help?: Can't Reach Ulcer, Limited mobility and Taxing effort to leave home Smoking Status: Former smoker [facility] Medical History (Updated 03/03/22 @ 14:41 [...] Ulcer Pressure Ulcer/Injury Staging: Unstageable Bed Appearance: [place] and Yellow Percent of Wound Bed Granulated/Red: 90 Percent of Devitalized: 10 Length (cm): 2.2 Width (cm): 1.8 Depth (cm): 1.9 CM Sq: 3.960 Surrounding Tissue Appearance: [place], Hyperpigmented and Satellite lesions Surrounding Tissue Temp: [...] signed by DAVID Aguilar> 03/03/22 1441 [facility] Work Phone: [phone] 924-378301-13-2023 Miscellaneous Notes* Telephone Encounter - RAUL Davidson - 02/27/2022 10:24 AM EST Patient phones requesting refills as follows: Per pts sister takes 1 mg in AM and 1 mg in PM Requested Prescriptions Pending Prescriptions Disp Refills tacrolimus IR (PROGRAF) 1 mg capsule Sig: Take 2 capsules by mouth DAILY (6 AM). Please review and advise. RAUL Davidson documented in this encounterOhiohealth Shelby Hospital01-12-2023 NoteHNO ID: [id number] Author: Hina Peterson MD Service: ? 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 Magic Cup [place] with lunch aspirin, enteric coated (ASPIRIN, ENTERIC COATED) 81 mg EC tablet Take 1 tablet by mouth once daily. predniSONE (DELTASONE) 5 mg tablet TAKE 1 TABLET BY MOUTH EVERY DAY oxyCODONE IR (ROXICODONE) 5 mg immediate release tablet 1-2 tablets by ORAL/FEEDING TUBE route every 3 hours as needed. Food Supplement, Lactose-Free (ENSURE MAX (more content not included)... [facility]01-12-2023 History of Present illness Narrative* Hina Peterson MD - 02/26/2022 4:25 PM EST Images from the original note were not included. [facility] Thor[facility] [place] DEPARTMENT OF VASCULAR SURGERY OUTPATIENT VISIT DATE [...] sutures were removed at the [facility] facility. He comes here with a lateral wound eschar. He denies any fevers, chills, or any drainage. He is on anticoagulation. 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 Magic Cup [place] with lunch aspirin, enteric coated (ASPIRIN, ENTERIC [...] TIME: 4:26 PM documented in this encounterOhiohealth Shelby Hospital01-05-2023 Miscellaneous Notes* Telephone Encounter - Gwen Beard - 02/19/2022 12:22 PM ESTSummary: rescheduled appt Alex Almonte appointments have been scheduled accordingly. Patient has been notified via telephone and appointment schedule sent via My Chart Gwen eBard February 19, 2022 12:22 PM * Telephone Encounter - Yumiko Denise - 02/18/2022 3:11 PM EST Reason for call: Mr. Almonte would like to request a sooner appointment with Dr. Petesron than 04/13/2022. Contact Name (if not the patient) Alex's nurse Home and cell number(Ask for Alex's nurse) [phone] Diagnosis 4 mo f/u wound check Yumiko Mcclain documented in this encounterOhiohealth Shelby Hospital01-05-2023 Miscellaneous Notes* Telephone Encounter - Augusta Medrano RN - 02/19/2022 11:11 AM EST Alex Almonte's nursing facility, [facility], called [...] Augusta Medrano RN documented in this encounterOhiohealth Shelby Hospital01-04-2023 Miscellaneous Notes* Telephone Encounter - Martina [...] Mercedez Tavares MA documented in this encounterOhiohealth Shelby Hospital12-27-2022 Progress note Author Sadia Aguilar [facility] February 10, 2022 3:47pm Note Date/Time February 10, 2022 3:47pm [facility] [address] [place] [address] Wound Center Provider Note Signed Patient: Alex Almonte MR#: [id number] : 1945 Acct:[id number] Age/Sex: 76 / M Copies to: DO Sadia Whyte APRN~ HPI Date of Visit Date of Visit: Date of Service: 02/10/2022 Time of Service: 15:44 Narrative HPI: 12/30/21 Alex is a 76 year old male presenting to [facility] wound care for aninitial visit for eval and treatment of a sacral/coccyx area pressure ulcer. He resides at [facility]. There is an FIBER OPTIC TECHNICIAN present for the visit. Medicalhoney gel will [...] his brief that was cleaned by this scientific technical writer as well as another nursing staff member, few weeks to follow up Subjective Pain Coccyx: Pain Description: Intermittent Pain Intensity: 0 Wound/Ulcer History When did wound start?: 4 weeks ago- from initial visit here Mode of Arrival/ Roll Up Machine Operator: Facility vehicle Assistive Device Used Today: Wheelchair and Indra Lives with:: Care/Nursing Facility Appetite Description: Within Normal Limits Who helps w/ dressing change?: Nursing Facility Why Do You Need Help?: Can't Reach Ulcer, Limited mobility and Taxing effort to leave home Smoking Status: Former smoker [facility] Medical History (Updated 01/20/22 @ 14:21 [...] Ulcer Pressure Ulcer/Injury Staging: Unstageable Bed Appearance: [place] and Yellow Percent of Wound Bed Granulated/Red: 90 Percent of Devitalized: 10 Length (cm): 2.5 Width (cm): 2.3 Depth (cm): 2.1 CM Sq: 5.750 Surrounding Tissue Appearance: [place], Hyperpigmented and Satellite lesions Surrounding Tissue Temp: [...] signed by DAVID Aguilar> 02/10/22 1547 [facility] Work Phone: 1(315) 686-635812-22-2022 NoteHNO ID: [id number] Author: Asia Pike MD Service: ? Author Type: Physician Type: Progress Notes Filed: 02/05/2022 9:38 AM Note Text: [facility] [place] [facility] Follow up Portions of this note [...] date with medications. Patient brought paperwork from [employer] with all medications being received. Patient unsure if they have been drawing labs regularly. Last Tac from 01/19: 12.9 and K 5.9. In need of current labs. Lab orders will be sent with patient and follows as below: Kidney and Pan[facility] Trans[facility] Standing Lab Orders [address] [place], [place] [address] February 05, 2022 Alex Almonte 1945 [id number] STANDARD TESTING: Diagnosis Codes: Z94.0 Kidney Transplant [...] AT YOUR LABORATORY FACILITY AND FAX TO [phone]. PLEASE CALL [phone]. Provider: Dr. Pike Current Outpatient Medications Medication [...] by mouth daily with lunch. Magic Cup [place] with lunch aspirin, enteric coated (ASPIRIN, ENTERIC COATED) 81 mg EC tablet Take 1 tablet by mouth once daily. atorvastatin (LIPITOR) 40 mg tablet 1 tablet by ORAL/FEEDING TUBE route daily at bedtime. (more content not included)...[facility]12-22-2022 History of Present illness Narrative* Asia Pike MD - 02/05/2022 8:20 AM EST Images from the original note were not included. [facility] [place] [facility] Follow up Portions of this note [...] and snacks patient declined. Indra scale at [facility]: 166.2 lbs per patient. Bed sore on coccyx causing discomfort. Being changed regularly at [facility]- reported to be smaller around but still as deep. Patient not very up to date with medications. Patient brought paperwork from [employer] [facility] with all medications being received. Patient unsure if they have been drawing labs regularly. Last Tac from 01/19: 12.9 and K 5.9. In need of current labs. Lab orders will be sent with patient and follows as below: Kidney and Pancreas Transplant Standing Lab Orders [address] [place], [place] [address] February 05, 2022 Alex Almonte 1945 [id number] STANDARD TESTING: Diagnosis Codes: Z94.0 Kidney Transplant [...] AT YOUR LABORATORY FACILITY AND FAX TO [phone]. PLEASE CALL [phone]. Provider: Dr. Pike Current Outpatient Medications Medication [...] by mouth daily with lunch. Magic Cup [place] with lunch aspirin, enteric coated (ASPIRIN, ENTERIC [...] Asia Pike MD documented in this encounterOhiohealth Shelby Hospital12-06-2022 Progress note Author Sadia Aguilar [facility] January 20, 2022 2:21pm Note Date/Time January 20, 2022 2 :21pm [facility] [address] [place] [address] Wound Center Provider Note Signed Patient: Alex Almonte MR#: [id number] : 1945 Acct:[id number] Age/Sex: 76 / M Copies to: DO Sadia Whyte APRN~ HPI Date of Visit Date of Visit: Date of Service: 01/20/2022 Time of Service: 14:17 Narrative HPI: 12/30/21 Alex is a 76 year old male presenting to [facility] wound care for aninitial visit for eval and treatment of a sacral/coccyx area pressure ulcer. He resides at [facility]. There is an FIBER OPTIC TECHNICIAN present for the visit. Medicalhoney gel will [...] from initial visit here Mode of Arrival/ Roll Up Machine Operator: Facility vehicle Assistive Device Used Today: Wheelchair and Indra Lives with:: Care/Nursing Facility Appetite Description: Within Normal Limits Who helps w/ dressing change?: Nursing Facility Why Do You Need Help?: Can't Reach Ulcer, Limited mobility and Taxing effort to leave home Smoking Status: Former smoker [facility] Medical History (Updated 01/20/22 @ 14:21 [...] Ulcer Pressure Ulcer/Injury Staging: Unstageable Bed Appearance: [place] and Yellow Percent of Wound Bed Granulated/Red: 40 Percent of Devitalized: 60 Length (cm): 5.2 Width (cm): 3.4 Depth (cm): 1.8 CM Sq: 17.680 Surrounding Tissue Appearance: [place] and Hyperpigmented Surrounding Tissue Temp: Warm Drainage [...] signed by DAVID Aguilar> 01/20/22 1421 [facility] Work Phone: 1(103) 365-592012-06-2022 Miscellaneous Notes* Telephone Encounter - Van Olivarez APRN.SOUND PERSON - 01/20/2022 1:12 PM EST Labs noted from yesterday. Pt is currently residing at [facility], I spoke with the Nurse, the results has been addressed by Physician caring for pt. He had been placed on Chlor Con and this has been discontinued and hyperkalemia has been treated. Van Olivarez APRN.DIAMANTE documented in this encounterOhiohealth Shelby Hospital11-28-2022 Surgical operation note* Brief Op Note - Misbah Landis PA-C - 01/12/2022 10:41 AM EST BRIEF OPERATIVE / PROCEDURE NOTE LOG ID: [id number] SURGERY/PROCEDURE DATE: 01/12/2022 INCISION/PROCEDURE START TIME: 10:32 AM INCISION CLOSE/PROCEDURE END TIME: 10:35 AM SURGEON(S)/PROCEDURALIST(S) AND RETAIL LINK ANALYST(S): Misbah Landis PA-C SURGERY/PROCEDURE(S): Removal tunneled vascular access catheter under local anesthesia ANESTHESIA: Procedural Sedation FINDINGS: Catheter removed intact ESTIMATED BLOOD LOSS: 0 ml SPECIMENS: None COMPLICATIONS: None PRE-OP/PRE-PROCEDURE DIAGNOSIS: Foot Ulcer POST-OP/POST-PROCEDURE DIAGNOSIS: Same as Preop SIGNATURE: Misbah Landis PA-C PATIENT NAME: Alex Almonte DATE: January 12, 2022 TIME: 10:42 AM documented in this encounterOhiohealth Shelby Hospital11-22-2022 Nurse Note* Laxmi Archibald RN - 01/06/2022 1:55 PM EST Pre-procedure instructions: Contacted patient's sister, [employer]ira [employer] and nurse at [facility], aJda ([phone]) andconfirmed appt. for Gerhard removal scheduled on 01/12/22, at [facility]. If instructions are not followed your [...] signed. Arrival at 9:30am [facility] and check in for your procedure. Digital Sales Planner/Transportation: How will you be arriving for your procedure? Ambulance service. To be arranged by [facility]. If you develop any of the following symptoms before your procedure, please call [phone]. Chills, joint pain, rash, sore throat, cough, loss of smell, reddened eyes, vomiting, abdominal pains, diarrhea, loss of taste, severe headache, weakness, bruising or bleeding, fever, muscle pain, shortness of breath Recovery expectations: You can expect to be in recovery for 30 minutes following the procedure. Written instructions provided to patient via [facility] If you have any questions please call [phone] documented in this encounterOhiohealth Shelby Hospital11-15-2022 Progress note Author Sadia Aguilar [facility] December 30, 2021 1:49pm Note Date/Time December 30, 2021 1:49pm [facility] [address] [place] [address] Wound Center Provider Note Signed Patient: Alex Almonte MR#: [id number] : 1945 Acct:[id number] Age/Sex: 76 / M Copies to: DO Sadia Whyte APRN~ HPI Date of Visit Date of Visit: Date of Service: 12/30/2021 Time of Service: 13:44 Narrative HPI: 12/30/21 Alex is a 76 year old male presenting to [facility] wound care for aninitial visit for eval and treatment of a sacral/coccyx area pressure ulcer. He resides at [facility]. There is an FIBER OPTIC TECHNICIAN present for the visit. Medicalhoney gel will [...] start?: 4 weeks ago Mode of Arrival/ Roll Up Machine Operator: Facility vehicle Assistive Device Used Today: Wheelchair and Indra Lives with:: Care/Nursing Facility Appetite Description: Within Normal Limits Who helps w/ dressing change?: Nursing Facility Why Do You Need Help?: Can't Reach Ulcer, Limited mobility and Taxing effort to leave home Smoking Status: Former smoker [facility] Medical History (Updated 12/30/21 @ 13:49 [...] 0.1 CM Sq: 38.500 Surrounding Tissue Appearance: [place] and Hyperpigmented Surrounding Tissue Temp: Warm Drainage [...] <Electronically signed by DAVID Aguilar> 12/30/21 1349 [facility] Work Phone: 1(649) 778-957211-15-2022 History of Present illness Narrative* Paresh Fonseca [...] the rehab facility He is currently at [facility] in [facility] Seen on video together with [...] has local wound care following this at [facility] WBC 6.0, creatinine -- 0.8. alt [...] by mouth daily with lunch. Magic Cup [place] with lunch aspirin, enteric coated (ASPIRIN, ENTERIC [...] 76 year old male from [facility]. Here today for copat follow-up for vancomycin x4 weeks for MRSA bacteremia He was transferred from 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 History of PAD CAD status post CABG, diabetes, atrial fibrillatioN He originally presented [facility] for having altered mental status and [...] 3. Status post right heel I&D at [facility] on 11/24/2021. 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 4. CKD - s/p gerhard placement 5. immunocompromised Status post right open above the ankle [id number] - Enterobacter and MRSA from cultures Gram-positive [...] will need to coordinate with his SNF [phone] --our ID office will need to arrange for IR gerhard removal. Return to ID as needed 10 Minutes spent via virtual visit. SIGNATURE: Paresh Fonseca MD PATIENT NAME: Alex Almonte DATE: December 30, 2021 TIME: 9:52 AM documented in this encounterOhiohealth Shelby Hospital11-01-2022 Miscellaneous Notes* Telephone Encounter - Sulma Pardo - 12/16/2021 3:13 PM EDT Pt manager therapy is requesting orders for Stomp ampushield to be taken off pressure relief because it is causing sores on the thigh. Thanks, Sulma Pardo Experience Design Director documented in this encounterOhiohealth Shelby Hospital10-31-2022 Miscellaneous Notes* Telephone Encounter - Gwen Alfredo Adm Asst I - 12/15/2021 4:11 PM EDT Rupa LYLES from [facility] [phone] called to report IV Vancomycin was started until today. Patient missed 3 days, should patient makeup missed doses? Please advise. Gwen Alfredo Adm Asst I documented in this encounterOhiohealth Shelby Hospital10-21-2022 Instructions* Patient Instructions* Paresh Fonseca MD [...] serious illness Are taking any medications (prescription, meux-xdk-pzaepws, vitamins, or herbal products) How will I [...] treatment or prevention of COVID-19 go to https://www.fda.gov/bltwmaydr-hvpcisjreffn-dut- response/nfe-jcvoe-rpphgkggqd-ocx-alsapw-zjpgzktpm/bvgqpitrc-tgm-jvphtgfcgvhhe for more information. It is your choice [...] not go away. Report side effects to [employer] at www.fda.gov/medG[place] Strategic Royaltytch or call 9-938-XZG-3343 or call [employer] . Additional Information If you have questions, visit the website or call the telephone number provided below. Website Telephone number http://wwwDajiabao How can I learn more about COVID-19? Ask your healthcare provider. Visit https://www.cdc.gov/COVID19 Contact your local or state public health department. What is an Emergency Use Authorization? The [place] FDA has made EVUSHELD (tixagevimab co-packaged with cilgavimab) available under an emergency access mechanism called an Emergency Use Authorization EUA. The EUA is supported by a Log Manager of Health and Human Service (HHS) declaration [...] monohydrate, polysorbate 80, sucrose, water. Distributed by: [employer] [place] Manufactured for: [employer] [place] [employer] 2021. All rightsreserved. documented in this encounterOhiohealth Shelby Hospital10-21-2022 Miscellaneous Notes* Telephone Encounter - Paresh Fonseca MD - 12/05/2021 3:05 PM EDT Evusheld (tixagevimab/cilgavimab) Eligibility and Patient Discussion The patient agrees to receive Evusheld (tixagevimab 300 mg and cilgavimab 300 mg) at [place]. The patient verbalized understanding of repeating a COVID test 72 hours prior to the injections. called up patient in response to her mychart message today she tested covid negative on a rapid test on Wednesday this week Discussed evushed fact sheet and she agrees to proceed she will retest again today to be scheduled for Friday 12[facility] Paresh Fonseca MD documented in this encounterOhiohealth Shelby Hospital10-03-2022 Instructions* Patient Instructions* No Reeder DO - 11/17/2021 4:26 PM EDT -- continue coumadin -- will get vascular ultrasound for vein and artery of your right leg -- will have you see my interventional cardiology partner regarding your peripheral artery disease and if your artery disease is impairing your wound healing for the leg ulcer documented in this encounterOhiohealth Shelby Hospital10-03-2022 History of Present illness Narrative* No Reeder DO - 11/17/2021 3:53 PM EDT Images from the original note were not included. [facility] [place] Department of Cardiovascular Medicine SECTION [...] DVT scan. Leg elevation. No Reeder DO, [facility] Vascular Medicine documented in this encounterOhiohealth Shelby Hospital08-16-2022 History of Past illness Narrative* Problem Noted Date Resolved Date Altered tissue perfusion documented as of this encounter (statuses as of 09/30/2021) [address]16-2022 History of Past illness Narrative* Problem Noted Date Resolved Date Altered tissue perfusion documented as of this encounter (statuses as of 10/09/2021) [address]16-2022 History of Past illness Narrative* Problem Noted Date Resolved Date Altered tissue perfusion documented as of this encounter (statuses as of 11/18/2021) [address]16-2022 History of Past illness Narrative* Problem Noted Date Resolved Date Altered tissue perfusion documented as of this encounter (statuses as of 12/01/2021) [address]16-2022 History of Past illness Narrative* Problem Noted Date Resolved Date Altered tissue perfusion 16/2 022 documented as of this encounter (statuses as of 12/05/2021) [address]16-2022 History of Past illness Narrative* Problem Noted Date Resolved Date Altered tissue perfusion 16/2 022 documented as of this encounter (statuses as of 12/08/2021) [address]16-2022 History of Past illness Narrative* Problem Noted Date Resolved Date Altered tissue perfusion 16/2 022 documented as of this encounter (statuses as of 12/08/2021) [address]16-2022 History of Past illness Narrative* Problem Noted Date Resolved Date Altered tissue perfusion 16/2 022 documented as of this encounter (statuses as of 12/12/2021) [address]16-2022 History of Past illness Narrative* Problem Noted Date Resolved Date Altered tissue perfusion 16/2 022 documented as of this encounter (statuses as of 12/15/2021) [address]16-2022 History of Past illness Narrative* Problem Noted Date Resolved Date Altered tissue perfusion 16/2 022 documented as of this encounter (statuses as of 12/16/2021) [address]16-2022 History of Past illness Narrative* Problem Noted Date Resolved Date Altered tissue perfusion 16/2 022 documented as of this encounter (statuses as of 12/31/2021) [address]16-2022 History of Past illness Narrative* Problem Noted Date Resolved Date Altered tissue perfusion 16/2 022 documented as of this encounter (statuses as of 01/13/2022) [address]16-2022 History of Past illness Narrative* Problem Noted Date Resolved Date Altered tissue perfusion 16/2 022 documented as of this encounter (statuses as of 01/20/2022) [address]16-2022 History of Past illness Narrative* Problem Noted Date Resolved Date Altered tissue perfusion 16/2 022 documented as of this encounter (statuses as of 02/06/2022) [address]16-2022 History of Past illness Narrative* Problem Noted Date Resolved Date Altered tissue perfusion 16/2 022 documented as of this encounter (statuses as of 02/20/2022) [address]16-2022 History of Past illness Narrative* Problem Noted Date Resolved Date Altered tissue perfusion 022 documented as of this encounter (statuses as of 02/26/2022) [address]22 History of Past illness Narrative* Problem Noted Date Resolved Date Altered tissue perfusion 022 documented as of this encounter (statuses as of 02/27/2022) [address]22 History of Past illness Narrative* Problem Noted Date Resolved Date Altered tissue perfusion 022 documented as of this encounter (statuses as of 03/21/2022) [address]22 History of Past illness Narrative* Problem Noted Date Resolved Date Altered tissue perfusion 022 documented as of this encounter (statuses as of 03/30/2022) [address] History of Past illness Narrative* Problem Noted Date Resolved Date Altered tissue perfusion 022 documented as of this encounter (statuses as of 04/06/2022) [address]16-2022 History of Past illness Narrative* Problem Noted Date Resolved Date Altered tissue perfusion 022 documented as of this encounter (statuses as of 05/13/2022) [address]16-2022 History of Past illness Narrative* Problem Noted Date Diagnosed Date Resolved Date Altered tissue perfusion documented as of this encounter (statuses as of 2022) [address] History of Past illness Narrative* Problem Noted Date Diagnosed Date Resolved Date Altered tissue perfusion documented as of this encounter (statuses as of 10/29/2022) [address]16-2022 Miscellaneous Notes* Telephone Encounter - Katina [...] pharmacy. Katina Duque documented in this encounterOhiohealth Shelby Hospital05-31-2022 Miscellaneous Notes* Telephone Encounter - Van [...] and advise. Rosibel Daniel documented in this encounterOhiohealth Shelby Hospital04-21-2022 Miscellaneous Notes* Telephone Encounter - Van Olivarez APRN.CNP - 06/05/2021 4:46 PM EDT Spoke with pt regarding latest results, scr. at baseline. TAC level 8.6 prev two levels in 5 range.He believes latest level would be 12hr trough. No changes for now, if next level >7, can consider if reduction appropriate. He understands. Van Olivarez APRN.CNP documented in this encounterOhiohealth Shelby HospitalEvalusaint francis healthcare note* Diagnosis Screening for genitourinary condition Screening for other and unspecified genitourinary condition documented in this encounter [facility] Hospital[facility]* Diagnosis Acute deep vein thrombosis (DVT) of proximal end of right lower extremity (HCC)- Primary PAD (peripheral artery disease) (HCC) Peripheral vascular disease, unspecified Nonhealing ulcer of heel (HCC) Anticoagulation management encounter Encounter for therapeutic drug monitoring documented in this encounter [facility] note* Diagnosis Encounter for prophylactic measures, unspecified- Primary documented in this encounter [facility] note* Diagnosis Kidney replaced by transplant- Primary documented in this encounter [facility] note* Diagnosis MRSA bacteremia- Primary Bacteremia Diabetic foot ulcer with osteomyelitis (HCC) Type II or unspecified type diabetes mellitus with other specified manifestations, not stated as uncontrolled ILIANA (acute kidney injury) ([facility]) Acute kidney failure, unspecified documented in this encounter [facility] note* Diagnosis Kidney replaced by transplant- Primary 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 intermediate current use of immunosuppressive drug documented in this encounter [facility] note* Diagnosis Hx of BKA, right (HCC)- Primary PAD (peripheral artery disease) ([facility]) Peripheral vascular disease, unspecified Mixed hyperlipidemia [...] gangrene, with long-term current use of insulin ([facility]) Paroxysmal atrial fibrillation ([facility]) Atrial fibrillation documented in this encounter [facility] note* Diagnosis Screening for genitourinary condition Screening for other and unspecified genitourinary condition documented in this encounter [facility] note* Diagnosis Onset Date Resolution Status At high risk for skin breakdown chronic Diabetes chronic Fecal incontinence chronic Limited mobility chronic Poor appetite chronic Pressure ulcer of sacral region, unstageable chronic Candidiasis resolved [facility] Work Phone: Evaluation noteNo [employer] Other Evaluation note* Diagnosis Kidney replaced by transplant- Primary documented in this encounter [facility] note* Diagnosis Type 1 diabetes mellitus [...] COLONOSCOPY 1995,2001, 2014 Hospitalization History see above [employer] Other Progress note Author Sadia Aguilar [facility] July 20, 2022 1:48pm Note Date/Time July 20, 2022 1:48p m [facility] [address] [place] [address] Wound Center Provider Note Signed Patient: Alex Almonte MR#: [id number] : 1945 Acct:[id number] Age/Sex: 76 / M Copies to: Devon Moreira,DO Sadia Aguilar, [employer]~ HPI Date of Visit Date of Visit: Date of Service: 07/20/2022 Time of Service: 13:46 Narrative HPI: 12/30/21 Alex is a 76 year old male presenting to [facility] wound care for aninitial visit for eval and treatment of a sacral/coccyx area pressure ulcer. He resides at [facility]. There is an FIBER OPTIC TECHNICIAN present for the visit. Medicalhoney gel will [...] his brief that was cleaned by this scientific technical writer as well as another nursing [...] from initial visit here Mode of Arrival/ Roll Up Machine Operator: Facility vehicle Assistive Device Used Today: Wheelchair and Indra Lives with:: Care/Nursing Facility Appetite Description: Within Normal Limits Who helps w/ dressing change?: Nursing Facility Why Do You Need Help?: Can't Reach Ulcer, Limited mobility and Taxing effort to leave home Smoking Status: Former smoker [facility] Medical History (Updated 03/03/22 @ 14:41 [...] signed by DAVID Aguilar> 07/20/22 1348 [facility] Work Phone: Reason for referral (narrative)* Outpatient Procedure (Routine) - Authorized Specialty Diagnoses / Procedures Referred By Felicia t Referred To [facility] Diagnoses PAD (peripheral artery disease) (HCC) Nonhealing ulcer of heel (HCC) Procedures US LEG ARTERIAL PERIPH UNL VAS LAB DUP-SCAN LXTR ART/ARTL BPGS UNI/LMTD STUDY No Reeder DO [address] [place] [id number] [facility] [address] [address] Referral ID Status Reason Start Date Expiration Date Visits Requested Visits Authorized [id number] Authorized Auto-Generat ed Referral 11/17/2021 11/17/2022 1 1 * Outpatient Procedure (Routine) - Authorized Specialty Diagnoses / Procedures Referred By Contac t Referred To Contact [facility] Diagnoses Acute deep vein thrombosis (DVT) of proximal end of right lower extremity (HCC) Procedures US LEG VEIN DVT UNL VAS LAB DUP-SCAN XTR VEINS UNILATERAL/LIMITED STUDY No Reeder DO [address] [place] [address] [facility] [place] [address] Referral ID Status Reason Start Date Expiration Date Visits Requested Visits Authorized [id number] Authorized Auto-Generat ed Referral 11/17/2021 11/17/2022 1 1 * Consult, Test, Treat (Routine) - Authorized Specialty Diagnoses / Procedures Referred By Contac t Referred To Contact Cardiology Diagnoses PAD (peripheral artery disease) (HCC) Nonhealing ulcer of heel (HCC) Procedures CONSULT TO CARDIOLOGY OFFICE/OUTPATIENT [facility] MDM 60-74 MINUTES Savanah Marcelo MD [address] [place] [address] Referral ID Status Reason Start Date Expiration Date Visits Requested Visits Authorized [id number] Authorized PCP Requested Referral 11/17/2021 11/17/2022 1 1 [facility] Hospital Summary Purpose Family History No Family History Records Found Relationship Condition Age at Onset Recorded Date/T kartik father Aneurysm Unknown father Parkinson's disease Unknown Advance Directives No Advanced Directives Records FoundDocuments on File Type Date Recorded Patient Charge Histotechnologist Expl anation Advance Directive(s) Latest Code Status [...] Maker Relationship: M ajority of Adult Siblings (special service representative) DNR-CCA 09/26/2021 11:56 AM 10/01/2021 [...] Decision Maker Relationship: Majority of Adult Siblings (special service representative) Code Status History Code Status [...] and content) DATE CREATED AUTHOR 02/20/2021 [facility] DATE CREATED AUTHOR AUTHOR'S ORGANIZ ATION 07/25/2022 [facility] DATE CREATED AUTHOR AUTHOR'S ORGANIZ ATION 08/16/2022 [facility] DATE CREATED AUTHOR AUTHOR'S ORGANIZ ATION 01/14/2023 [facility] DATE CREATED AUTHOR AUTHOR'S ORGANIZ ATION 06/19/[address] [facility] DATE CREATED AUTHOR AUTHOR'S ORGANIZ ATION 09/05/2023 [facility] Source Comments (unrecognize d section and content) In the event this informatio n is protected by the Federal Confidentiality of Alcohol and Drug Abuse Patient Records regulations: The Federal rules restrict any use of the information to criminally investigate or prosecute any alcohol or drug abuse patient.[facility] the event this information is protected by the Federal Confidentiality of Alcohol and Drug Abuse Patient Records regulations: The Federal rules restrict any use of the information to criminally investigate or prosecute any alcohol or drug abuse patient.[facility] HospitalIn the event this information is protected by the Federal Confidentiality of Alcohol and Drug Abuse Patient Records regulations: The Federal rules restrict any use of the information to criminally investigate or prosecute any alcohol or drug abuse patient.[facility] HospitalIn the event this information is protected by the Federal Confidentiality of Alcohol and Drug Abuse Patient Records regulations: The Federal rules restrict any use of the information to criminally investigate or prosecute any alcohol or drug abuse patient.[facility] HospitalIn the event this information is protected by the Federal Confidentiality of Alcohol and Drug Abuse Patient Records regulations: The Federal rules restrict any use of the information to criminally investigate or prosecute any alcohol or drug abuse patient.[facility] HospitalIn the event this information is protected by the Federal Confidentiality of Alcohol and Drug Abuse Patient Records regulations: The Federal rules restrict any use of the information to criminally investigate or prosecute any alcohol or drug abuse patient.[facility] HospitalIn the event this information is protected by the Federal Confidentiality of Alcohol and Drug Abuse Patient Records regulations: The Federal rules restrict any use of the information to criminally investigate or prosecute any alcohol or drug abuse patient.[facility] HospitalIn the event this information is protected by the Federal Confidentiality of Alcohol and Drug Abuse Patient Records regulations: The Federal rules restrict any use of the information to criminally investigate or prosecute any alcohol or drug abuse patient.[facility] HospitalIn the event this information is protected by the Federal Confidentiality of Alcohol and Drug Abuse Patient Records regulations: The Federal rules restrict any use of the information to criminally investigate or prosecute any alcohol or drug abuse patient.[facility] HospitalIn the event this information is protected by the Federal Confidentiality of Alcohol and Drug Abuse Patient Records regulations: The Federal rules restrict any use of the information to criminally investigate or prosecute any alcohol or drug abuse patient.[facility] HospitalIn the event this information is protected by the Federal Confidentiality of Alcohol and Drug Abuse Patient Records regulations: The Federal rules restrict any use of the information to criminally investigate or prosecute any alcohol or drug abuse patient.[facility] HospitalIn the event this information is protected by the Federal Confidentiality of Alcohol and Drug Abuse Patient Records regulations: The Federal rules restrict any use of the information to criminally investigate or prosecute any alcohol or drug abuse patient.[facility] HospitalIn the event this information is protected by the Federal Confidentiality of Alcohol and Drug Abuse Patient Records regulations: The Federal rules restrict any use of the information to criminally investigate or prosecute any alcohol or drug abuse patient.[facility] HospitalIn the event this information is protected by the Federal Confidentiality of Alcohol and Drug Abuse Patient Records regulations: The Federal rules restrict any use of the information to criminally investigate or prosecute any alcohol or drug abuse patient.[facility] HospitalIn the event this information is protected by the Federal Confidentiality of Alcohol and Drug Abuse Patient Records regulations: The Federal rules restrict any use of the information to criminally investigate or prosecute any alcohol or drug abuse patient.[facility] HospitalIn the event this information is protected by the Federal Confidentiality of Alcohol and Drug Abuse Patient Records regulations: The Federal rules restrict any use of the information to criminally investigate or prosecute any alcohol or drug abuse patient.[facility] HospitalIn the event this information is protected by the Federal Confidentiality of Alcohol and Drug Abuse Patient Records regulations: The Federal rules restrict any use of the information to criminally investigate or prosecute any alcohol or drug abuse patient.[facility] HospitalIn the event this information is protected by the Federal Confidentiality of Alcohol and Drug Abuse Patient Records regulations: The Federal rules restrict any use of the information to criminally investigate or prosecute any alcohol or drug abuse patient.[facility] HospitalIn the event this information is protected by the Federal Confidentiality of Alcohol and Drug Abuse Patient Records regulations: The Federal rules restrict any use of the information to criminally investigate or prosecute any alcohol or drug abuse patient.[facility] HospitalIn the event this information is protected by the Federal Confidentiality of Alcohol and Drug Abuse Patient Records regulations: The Federal rules restrict any use of the information to criminally investigate or prosecute any alcohol or drug abuse patient.[facility] HospitalIn the event this information is protected by the Federal Confidentiality of Alcohol and Drug Abuse Patient Records regulations: The Federal rules restrict any use of the information to criminally investigate or prosecute any alcohol or drug abuse patient.[facility] HospitalIn the event this information is protected by the Federal Confidentiality of Alcohol and Drug Abuse Patient Records regulations: The Federal rules restrict any use of the information to criminally investigate or prosecute any alcohol or drug abuse patient.[facility] HospitalIn the event this information is protected by the Federal Confidentiality of Alcohol and Drug Abuse Patient Records regulations: The Federal rules restrict any use of the information to criminally investigate or prosecute any alcohol or drug abuse patient.[facility] HospitalIn the event this information is protected by the Federal Confidentiality of Alcohol and Drug Abuse Patient Records regulations: The Federal rules restrict any use of the information to criminally investigate or prosecute any alcohol or drug abuse patient.[facility] HospitalIn the event this information is protected by the Federal Confidentiality of Alcohol and Drug Abuse Patient Records regulations: The Federal rules restrict any use of the information to criminally investigate or prosecute any alcohol or drug abuse patient.[facility] HospitalIn the event this information is protected by the Federal Confidentiality of Alcohol and Drug Abuse Patient Records regulations: The Federal rules restrict any use of the information to criminally investigate or prosecute any alcohol or drug abuse patient.[facility] Reason for Visit (unrecogniz ed section [...] Care Teams (unrecognized sec tion and content) Alteration Hand Relationship Specialty Start Date End Date Devon Moreira, DO [address] [place] [address] PCP - General 05/27/00 Alteration Hand Relationship Specialty Start Date End Date Devon Moreira, DO [address] [place] [address] PCP - General 05/27/00 Alteration Hand Relationship Specialty Start Date End Date Devon Moreira, DO [address] [place] [address] PCP - General 05/27/00 Alteration Hand Relationship Specialty Start Date End Date Devon Moreira Raquel, DO [address] [place] [address] PCP - General 05/27/00 Alteration Hand Relationship Specialty Start Date End Date Devon Moreira, DO [address] [place] [address] PCP - General 05/27/00 Alteration Hand Relationship Specialty Start Date End Date Devon Moreira, DO [address] [place] [address] PCP - General 05/27/00 Alteration Hand Relationship Specialty Start Date End Date Devon Moreira, DO [address] [place] [address] PCP - General 05/27/00 Alteration Hand Relationship Specialty Start Date End Date Devon Moreira, DO [address] [place] [address] PCP - General 05/27/00 Alteration Hand Relationship Specialty Start Date End Date Devon Moreira, DO [address] [place] [address] PCP - General 05/27/00 Alteration Hand Relationship Specialty Start Date End Date Devon Moreira, DO [address] [place] [address] PCP - General 05/27/00 Alteration Hand Relationship Specialty Start Date End Date Devon Moreira, DO [address] [place] [address] PCP - General 05/27/00 Alteration Hand Relationship Specialty Start Date End Date Devon Moreira, DO [address] [place] [address] PCP - General 05/27/00 Alteration Hand Relationship Specialty Start Date End Date Devon Moreira, DO [address] [place] [address] PCP - General 05/27/00 Alteration Hand Relationship Specialty Start Date End Date Devon Moreira, DO [address] [place] [address] PCP - General 05/27/00 Alteration Hand Relationship Specialty Start Date End Date Devon Moreira, DO [address] [place] [address] PCP - General 05/27/00 Alteration Hand Relationship Specialty Start Date End Date Devon Moreira, DO [address] [place] [address] PCP - General 05/27/00 Alteration Hand Relationship Specialty Start Date End Date Devon Moreira, DO [address] [place] [address] PCP - General 05/27/00 Alteration Hand Relationship Specialty Start Date End Date Devon Moreira, DO [address] [place] [address] PCP - General 05/27/00 Alteration Hand Relationship Specialty Start Date End Date Devon Moreira, DO [address] [place] [address] PCP - General 05/27/00 Team Status: Active Member Role Status Dates Devon Moreira DO Primary Care Provider Active Team Status: Inactive Member Role Status Dates Devon Moreira DO Primary Care Provider Active Sadia Aguilar APRN Attending Provider Active Alteration Hand Relationship Specialty Start Date End Date Devon Moreira, DO [address] [place] [address] PCP - General 05/27/00 Alteration Hand Relationship Specialty Start Date End Date Devon Moreira, DO [address] [place] [address] PCP - General 05/27/00 Alteration Hand Relationship Specialty Start Date End Date Ni Cabrera DO [address] [facility] [address] [place] [address] PCP - ACO Reach 07/09/22 Devon Moreira MD [address] [facility] [place] [id number] PCP - General Internal Medicine 07/14/22 PRN Active and Recently Administ ered Medications (unrecognized section and content) Medication Order 01/10/2022 01/11/2022 01/12/2022 lidocaine (PF) 10 mg/mL (1 %) injection (XYLOCAINE) SUBCUTANEOUS, X (OR/PROCEDURE) PRN, Starting on Wed01/12/22 at 1032, Until Wed01/13/22 at 0303, Intraprocedure 1032 (Given - Provid er: Vani Hdz APRN.SOUND PERSON) Goals (unrecognized section and content) Goals may [...] BE BASED ON THE PRIMARY CLINICAL RECORDS. [employer] provides no warranty or guarantee of the accuracy or completeness of information in this document.
[2023-09-13 09:12] LABS: INR 2.51; Prothrombin Time 24.3 sec (9.0-11.6)
== END 2023-09-13 07:34 | disposition home or self-care (01) ==
LOC: LAB 07:33
PROVIDERS: PCP Internal Medicine
DX: Z79.01 Long term (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 of anticoagulants (principal)
CPT/HCPCS: 36415; 85610

== ENCOUNTER 2023-09-15 04:01 | Outpatient (REF) | payer MEDICARE, OTHER, SELFPAY ==
--- OUTSIDE RECORDS SUMMARY | 2023-09-15 04:05 | XMS_ITS | CCD ---
Author Organization [facility] Care Team Providers Care Hotel Room Attendant Name Role Phone PROVIDER, UNKNOWN Attending Unavailable [...] Admitting Unavailable HIGHLSRINATH, ASHLEY Cortes Attending Unavailable MRAIAELENA, DR RICH Hernandez Consulting Unavailable BALL, DR [...] BALL, DR OSORIO Primary Care Unavailable SHAIKH aKte MURRAY Attending Unavailable SHAIKH Kate MURRAY Admitting [...] Unavailable Rico, DO Osorio Primary Care Provider [phone] DAVID Aguilar Attending Provider Sadia Aguilar Attending [...] CABRERA Attending Unavailable DEVON MOREIRA Referring Unavailable CAIYT IBRAHIM Attending Unavailable MILAGRO QUEEN Referring Unavailable MILAGRO QUEEN Referring Unavailable SARTHAK PARNELL Attending Unavailable Allergies Allergy Classification Reported Allergen(s) Allergy Type Date of Onset Reaction(s) Facility (20 sources) Pyridostigmine; Translations: [PYRIDOSTIGMINE BROMIDE] Drug Allergy 2 GI Upset [facility] Work Phone: (1 source) Pyridostigmine Drug Allergy [...] Indications: Type 1 diabetes mellitus with nephropathy ([facility]) 3 units breakfast, 5 units [...] 10 units and notify provider K Phos [place]-Sod Phos Di & [place] [phone] MG (6 sources) take 155-852 tablets by mouth twice daily K Phos [place]-Sod Phos Di & [place] 155-852-130 MG 1 tablet Orally twice daily Active take 155-852 tablets by mouth four times daily take 155-852 tablets by mouth four times daily K Phos [place]-Sod Phos Di & [place] 155-852-130 MG 1 tablet Orally Four times [...] by mouth daily with lunch. Magic Cup Hendricks with lunch 7110 mL 0 12/11/2021 Active Comment on above: Take 237 mL by mouth daily with lunch. Magic Cup Hendricks with lunch polyethylene glycol 3350 29214 mg powder for oral solution (20 sources) [...] current use of immunosuppressive drug; Translations: [Other superintendent terminal (current) drug therapy] Episodic Other aftercare (13 sources) Long-term current use of insulin; Translations: [FDC (current) use of insulin] Episodic Other aftercare (10 sources) superintendent container terminal (current) use of insulin; Translations: [SEMICONDUCTORS WAFER BREAKER CURRENT USE OF INSULIN] Onset: 2 Episodic Other aftercare (5 sources) superintendent container terminal (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 of anticoagulants; Translations: [SEMICONDUCTORS WAFER BREAKER CURRNT USE ANTICOAGULANTS] Onset: 3 Episodic Other [...] 07-30-2006 Episodic Other aftercare (2 sources) Other usp (current) drug therapy; Translations: [OTH SEMICONDUCTORS WAFER BREAKER CURRENT DRUG THERAPY] Onset: 02-05-2022 Episodic Other aftercare (4 sources) Encounter for orthopedic aftercare following surgical amputation; Translations: [ENC ORTHOPED AFTERCARE FLW SURG AMP] Onset: 02-05-2022 Episodic Other aftercare (4 sources) FDC (current) use of antibiotics; Translations: [NURSING HOME CURRENT USE ANTIBIOTICS] Onset: 12-20-2021 Episodic Other aftercare (1 source) superintendent container terminal (current) use of aspirin; Translations: [SEMICONDUCTORS WAFER BREAKER CURRENT USE OF ASPIRIN] Onset: 01-19-2022 Episodic [...] Range Facility Office Visiton 05-19-2023 Follow-up visit [id number] Alex Almonte 1945 M Date Provider Department Center 05/19/2023 Marlene-CAITY IBRAHIM CARD [facility] Family History Problem Relation Age of Onset Cancer Mother Aneurysm Father Cancer Father Parkinsonism Father Family Status - Relation Status Age at Mother Father Level of Service:74108 [place] OFFICE/OUTPATIENT ESTABLISHED LOW MDM 20 MIN Reason for Visit and Comments: Follow-up [436053] - 6 month follow up Normal [facility] HbA1c (Bld) [Mass fraction]o n 03-18-2023 Interpretation and review of laboratory results Normal [facility] POCT glycosylated hemoglobin (Hb A1C) docked deviceon 03-18-2023 HbA1c (Bld) [Mass fraction] 7.8 % [facility] CNPRosalie 12-25-2022 CNPN Telephone (TXCTGL) ALEX ALMONTE ([id number]) 1945 M Date Time Provider Department 12/25/22 KIDNEY TXP COORDINATORS TXCTGL During your visit today, we recorded the following information about you: Duane Ryan 12/25/2022 10:41 AM Signed Labs 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 Administrative Central Office Inspector Allergies As of Date: 12/25/2022 Noted Allergy [...] by mouth daily with lunch. 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 Magic Cup Hendricks with lunch aspirin, enteric coated (ASPIRIN, ENTERIC [...] am? thanks! RF Pts RN at [facility] reports pts sister picks up Rx from [...] Apply 0. (more content not included)... Normal [facility] Office Visiton 09-09-2022 Follow-up visit [id number] Alex Almonte Kate 1945 M Date Provider Department Center 09/09/2022 1596-SARTHAK PARNELL CARD [facility] Family History Problem Relation Age of Onset Cancer Mother Aneurysm Father Cancer Father Parkinsonism Father Family Status - Relation Status Age at Mother Father Level of Service:05665 [place] OFFICE/OUTPATIENT ESTABLISHED MOD MDM 30-39 MIN Normal [facility] Glucose Poct Glucometerson 0 07-20-2022 Commemt1 Glu2: Cleaned Meter Normal [facility] Comment on above: Result Comment: PERF ORMED BY: [facility] [address] [place] [address] PATHOLOGIST TUBER MACHINE OPERATOR JOSE F ELLIOTT M.D. Performed By: #### G MADY #### Point of Care testing , Glucose [Mass/Vol] 176 mg/dL Normal [facility] Comment on above: Result Comment: [facility] Glucose Reference Range is dependent on time and content of last meal. Glucose of more than 200 mg/dL in a nonstressed, ambulatory subject supports the diagnosis of Diabetes Mellitus. Performed By: #### G LULS #### Point of Care testing , FK506 (TACROLIMUS) WHOLE BLO ODon 07-12-2022 Tacrolimus (FK506), Blood 10.9 ng/mL Normal 2.0-20.0 [facility] Comment on above: Result Comment: Trou gh (immediately following transplant) 15.0 . Trough (steady state, 2 weeks or more after transplant): 3.0 - 8.0 . Performed by LC-MS/MS technology. Performed By: #### F K506T ####[facility] Et[address] [place], [place] [address]Dr. Farhat Leal CBC AUTO DIFFon 07-10-2022 BASO # 0.0 103/ul Normal 0.0-0.1 [facility] Comment on above: Performed By: #### C BC ####[facility] [address] [place], [place] [address]Dr. Farhat Leal Basophils/100 WBC (Bld) 0.5 % Normal 0.2-2.0 [facility] Comment on above: Performed By: #### C BC ####[facility] Ds[address] [place], [place] [address]Dr. Farhat Leal EO # 0.3 103/ul Normal 0.0-0.7 [facility] Comment on above: Performed By: #### C BC ####[facility] Gjpolelldj[address] [place], [place] [address]Dr. Farhat Leal Eosinophils/100 WBC (Bld) 4.9 % Normal 0.9-7.0 [facility] Comment on above: Performed By: #### C BC ####[facility] Ct[address] [place], [place] [address]DrSkylar Leal Erythrocyte distribution width (RBC) [Ratio] 13.8 % Normal 11.0-15.0 [facility] Comment on above: Performed By: #### C BC ####[facility] [address] [place] [address]Dr. Farhat Leal Hematocrit (Bld) [Volume fraction] 36.6 % Critically low 42.0-54.0 [facility] Comment on above: Performed By: #### C BC ####[facility] Qzsoxyvb[address] [place], [place] [address]DrSkylar Leal Hemoglobin (Bld) [Mass/Vol] 12.2 g/dL Critically low 14.0-18.0 [facility] Comment on above: Performed By: #### C BC ####[facility] V[address] [place], [place] [address]Dr. Farhat Leal IG # 0.01 10e3/ul Normal 0.00-0.03 [facility] Comment on above: Performed By: #### C BC ####[facility] E[address]ks[address] [place], [place] [address]Dr. Farhat Leal IG % 0.2 % Normal 0.0-0.5 [facility] Comment on above: Performed By: #### C BC ####[facility] V[address]there[address] [place], [place] [address]DrSkylar Leal LYMPH # 2.2 103/ul Normal 1.2-3.8 [facility] Comment on above: Performed By: #### C BC ####[facility] I[address] [place], [place] [address]DrSkylar Leal Lymphocytes/100 WBC (Bld) 33.9 % Normal 20.5-60.0 [facility] Comment on above: Performed By: #### C BC ####[facility] X[address] [place], [place] [address]DrSkylar Leal MANUAL DIFF REQ NO Normal [facility] Comment on above: Performed By: #### C BC ####[facility] [address] [place], [place] [address]DrSkylar Leal MCH (RBC) [Entitic mass] 31.0 pg Normal 25.9-34.0 [facility] Comment on above: Performed By: #### C BC ####[facility] [address] [place] [address]DrSkylar Leal MCHC (RBC) [Mass/Vol] 33.3 g/dL Normal 29.9-35.2 [facility] Comment on above: Performed By: #### C BC ####[facility] Qfr[address]qmt[address] [place], [place] [address]DrSkylar Leal MCV (RBC) [Entitic vol] 93.1 fL Normal 80.0-94.0 [facility] Comment on above: Performed By: #### C BC ####[facility] K[address] [place], [place] [address]DrSkylar Leal MONO # 0.7 103/ul Normal 0.3-0.8 [facility] Comment on above: Performed By: #### C BC ####[facility] X[address] [place], [place] [address]DrSkylar Leal Monocytes/100 WBC (Bld) 10.8 % Normal 1.7-12.0 [facility] Comment on above: Performed By: #### C BC ####[facility] [address] [place], [place] [address]DrSkylar Leal NEUT # 3.2 103/ul Normal 1.4-6.5 [facility] Comment on above: Performed By: #### C BC ####[facility] I[address] [place], [place] [address]DrSkylar Leal Neutrophils/100 WBC (Bld) 49.7 % Normal 43.0-75.0 [facility] Comment on above: Performed By: #### C BC ####[facility] I[address]sp[address] [place], [place] [address]DrSkylar Leal Platelet mean volume (Bld) [Entitic vol] 10.9 fL Normal 9.5-13.5 [facility] Comment on above: Performed By: #### C BC ####[facility] R[address] [place], [place] [address]DrSkylar Leal PLT 195 103/ul Normal 150-450 [facility] Comment on above: Performed By: #### C BC ####[facility] [address] [place] [phone]. Farhat Leal RBC 3.93 106/ul Critically low 4.70-6.10 [facility] Comment on above: Performed By: #### C BC ####[facility] [address] [place] [phone]. Farhat Leal WBC 6.4 103/ul Normal 4.0-11.0 [facility] Comment on above: Performed By: #### C BC ####[facility] [address] [place] [address]Dr. Farhat Leal MAGNESIUMon 07-10-2022 Magnesium [Mass/Vol] 1.9 mg/dL Normal 1.8-2.4 [facility] Comment on above: Performed By: #### HENRI Winters ####[facility] [address] [place], [place] [address]Dr. Farhat Leal PHOSPHORUSon 07-10-2022 Phosphate [Mass/Vol] 4.7 mg/dL Normal 2.6-4.7 [facility] Comment on above: Performed By: #### HENRI Winters ####[facility] [address] [place] [address]Dr. Farhat Leal PROF 14(COMP METB)on 023 Albumin [Mass/Vol] 2.7 g/dL Critically low 3.4-5.0 [facility] Comment on above: Performed By: #### C MP ####[facility] [address] [place] [phone]. Farhat Leal Albumin/Globulin [Mass ratio] 0.8 {ratio} Normal [facility] Comment on above: Performed By: #### C MP ####[facility] [address] [place] [phone]. Farhat Leal ALP [Catalytic activity/Vol] 59 U/L Normal 46-116 [facility] Comment on above: Performed By: #### C MP ####[facility] [address] [place] [phone]. Farhat Leal ALT [Catalytic activity/Vol] 16 U/L Normal 16-63 [facility] Comment on above: Performed By: #### C MP ####[facility] [address] [place] [address]Dr. Farhat Leal Anion gap [Moles/Vol] 12.3 mmol/L Normal Th e [facility] Comment on above: Performed By: #### C MP ####[facility] [address]uk[address] [place] [address]Dr. Farhat Lael AST [Catalytic activity/Vol] 17 U/L Normal 15-37 [facility] Comment on above: Performed By: #### C MP ####[facility] [address]unsf[address] [place] [address]Dr. Farhat Leal Bilirubin [Mass/Vol] 0.5 mg/dL Normal 0.2-1.0 [facility] Comment on above: Performed By: #### C MP ####[facility] V[address] [place], [place] [address]Dr. Farhat Leal Calcium [Mass/Vol] 8.5 mg/dL Normal 8.5-10.1 [facility] Comment on above: Performed By: #### C MP ####[facility] [address] [place], [place] [address]Dr. Farhat Leal Chloride [Moles/Vol] 104 mmol/L Normal 98-107 [facility] Comment on above: Performed By: #### C MP ####[facility] [address] [place] [address]Dr. Farhat Leal CO2 [Moles/Vol] 27.6 mmol/L Normal 21.0-32.0 [facility] Comment on above: Performed By: #### C MP ####[facility] [address] [place], [place] [address]Dr. Farhat Leal Creatinine [Mass/Vol] 1.79 mg/dL Critically high 0.70-1.30 [facility] Comment on above: Performed By: #### C MP ####[facility] [address] [place], [place] [address]Li. Farhat Leal EGFR-AF NICARAGUAN 45 mL/min/1.73m2 Critically low >=60 [facility] Comment on above: Performed By: #### C MP ####[facility] [address]xnmp[address] [place] [phone]. Farhat Leal EGFR-NON AF NICARAGUAN 37 mL/min/1.73m2 Critically low >=60 [facility] Comment on above: Performed By: #### C MP ####[facility] [address] [place] [phone]. Farhat Leal Globulin (S) [Mass/Vol] 3.2 g/dL Normal [facility] Comment on above: Performed By: #### C MP ####[facility] Cy[address]xocnia[address] [place] [phone]. Farhat Leal Glucose [Mass/Vol] 203 mg/dL Critically high 74-106 [facility] Comment on above: Performed By: #### C MP ####[facility] [address]cmag[address] [place] [phone]. Farhat Leal Potassium [Moles/Vol] 3.9 mmol/L Normal 3.5-5.1 [facility] Comment on above: Performed By: #### C MP ####[facility] [address]skyc[address] [place] [phone]. Farhat Leal Protein [Mass/Vol] 5.9 g/dL Critically low 6.4-8.2 Th [facility] Comment on above: Performed By: #### C MP ####[facility] [address]qang[address] [place] [phone]. Farhat Leal Sodium [Moles/Vol] 140 mmol/L Normal 136-145 [facility] Comment on above: Performed By: #### C MP ####[facility] [address]xmvwh[address] [place] [phone]. Farhat Leal Urea nitrogen [Mass/Vol] 61.0 mg/dL Critically high 7.0-18.0 [facility] Comment on above: Performed By: #### C MP ####[facility] [address] [place] [address]Dr. Farhat Leal Urea nitrogen/Creatinine [Mass ratio] 34.1 mg/mg Normal [facility] Comment on above: Performed By: #### C MP ####[facility] [address] [place], [place] [address]DrSkylar Leal PROTIMEon 07-10-2022 INR Coag (PPP) [Relative time] 2.95 {INR} Normal [facility] Comment on above: Performed By: #### P T ####[facility] [address] [place], [place] [address]Dr. Farhat Leal INR GUIDELINES SEE BELOW Normal [facility] Comment on above: Result Comment: MALINA RED INR: 2.0 - 3.0 CONDITIONS NOT LISTED BELOW 2.5 - 3.5 FOR PROSTHETIC HEART VALVE REPLACEMENT 2.5 - 3.5 RECURRENT THROMBOSIS Performed By: #### P T ####[facility] [address] [place], [place] [address]DrSkylar Leal PT Coag (PPP) [Time] 29.4 s Critically high 9.0-11.6 [facility] Comment on above: Performed By: #### P T ####[facility] S[address]ospr[address] [place], [place] [address]DrSkylar Leal FK506 (TACROLIMUS) WHOLE BLO ODon 07-07-2022 Tacrolimus (FK506), Blood 8.3 ng/mL Normal 2.0-20.0 [facility] Comment on above: Result Comment: Trou gh (immediately following transplant) 15.0 . Trough (steady state, 2 weeks or more after transplant): 3.0 - 8.0 . Performed by LC-MS/MS technology. Performed By: #### F K506T ####[facility] [address] [place], [place] [address]DrSkylar Leal CBC AUTO DIFFon 07-03-2022 BASO # 0.0 103/ul Normal 0.0-0.1 [facility] Comment on above: Performed By: #### C BC ####[facility] [address]ce[address] [place], [place] [address]DrSkylar Leal Basophils/100 WBC (Bld) 0.6 % Normal 0.2-2.0 [facility] Comment on above: Performed By: #### C BC ####[facility] V[address]wpji[address] [place], [place] [address]Dr. Farhat Leal EO # 0.3 103/ul Normal 0.0-0.7 [facility] Comment on above: Performed By: #### C BC ####[facility] X[address]ps[address] [place], [place] [address]Dr. Farhat Leal Eosinophils/100 WBC (Bld) 4.1 % Normal 0.9-7.0 [facility] Comment on above: Performed By: #### C BC ####[facility] Y[address]er[address] [place], [place] [address]Dr. Farhat Leal Erythrocyte distribution width (RBC) [Ratio] 14.0 % Normal 11.0-15.0 [facility] Comment on above: Performed By: #### C BC ####[facility] [address] [place], [place] [address]Dr. Farhat Leal Hematocrit (Bld) [Volume fraction] 35.9 % Critically low 42.0-54.0 [facility] Comment on above: Performed By: #### C BC ####[facility] [address] [place], [place] [address]Dr. Farhat Leal Hemoglobin (Bld) [Mass/Vol] 12.0 g/dL Critically low 14.0-18.0 [facility] Comment on above: Performed By: #### C BC ####[facility] Kr[address] [place], [place] [address]Dr. Farhat Leal IG # 0.04 10e3/ul Critically high 0.00-0.03 [facility] Comment on above: Performed By: #### C BC ####[facility] [address] [place], [place] [address]Dr. Farhat Leal IG % 0.6 % Critically high 0.0-0.5 [facility] Comment on above: Performed By: #### C BC ####[facility] [address] [place], [place] [address]Dr. Farhat Leal LYMPH # 1.5 103/ul Normal 1.2-3.8 [facility] Comment on above: Performed By: #### C BC ####[facility] [address]royn[address] [place] [phone]. Farhat Leal Lymphocytes/100 WBC (Bld) 21.5 % Normal 20.5-60.0 [facility] Comment on above: Performed By: #### C BC ####[facility] [address] [place] [address]Dr. Farhat Leal MANUAL DIFF REQ NO Normal [facility] Comment on above: Performed By: #### C BC ####[facility] [address]yelro[address] [place] [address]Dr. Farhat Leal MCH (RBC) [Entitic mass] 30.8 pg Normal 25.9-34.0 The [facility] [facility] [place] Comment on above: Performed By: #### C BC ####[facility] [place] Vnrtdyiyrp[address] [place] [address]Dr. Farhat Leal MCHC (RBC) [Mass/Vol] 33.4 g/dL Normal 29.9-35.2 [facility] [place] Comment on above: Performed By: #### C BC ####[facility] [place] Bizhbkuwmf[address] [place] [address]Dr. Farhat Leal MCV (RBC) [Entitic vol] 92.1 fL Normal 80.0-94.0 The [facility] [place] Comment on above: Performed By: #### C BC ####[facility] [place] Gggewbsiyr[address] [place] [address]Dr. Farhat Leal MONO # 0.6 103/ul Normal 0.3-0.8 The [facility] [place] Comment on above: Performed By: #### C BC ####[facility] [place] Cegflxrtlb9087 [place] [address]Dr. Farhat Leal Monocytes/100 WBC (Bld) 8.7 % Normal 1.7-12.0 The [facility] [place] Comment on above: Performed By: #### C BC ####[facility] [place] Awqjutnrwn6[address] [place] [address]Dr. Farhat Leal NEUT # 4.4 103/ul Normal 1.4-6.5 [facility] Comment on above: Performed By: #### C BC ####[facility] [place] Bivorotrib[address]13 [place] [address]Dr. Farhat Leal Neutrophils/100 WBC (Bld) 64.5 % Normal 43.0-75.0 [facility] Comment on above: Performed By: #### C BC ####[facility] [place] Afuuuclwvy7634 [place] [address]Dr. Farhat Leal Platelet mean volume (Bld) [Entitic vol] 10.1 fL Normal 9.5-13.5 [facility] Comment on above: Performed By: #### C BC ####[facility] [place] Mendsdbwuc2661 [place] [address]Dr. Farhat Elvis PLT 177 103/ul Normal 150-450 [facility] Comment on above: Performed By: #### C BC ####[facility] [place] Ffxgjajrbw1984 [place] [address]Dr. Farhat Elvis RBC 3.90 106/ul Critically low 4.70-6.10 The [facility] Comment on above: Performed By: #### C BC ####[facility] [place] Ltnezmqbps[address] [place], [place] [address]Dr. Farhat Elvis WBC 6.8 103/ul Normal 4.0-11.0 [facility] Comment on above: Performed By: #### C BC ####[facility] [place] Koihqbqpsv[address] [place], [place] [address]DrSkylar Leal PROF 14(COMP METB)on 023 Albumin [Mass/Vol] 2.8 g/dL Critically low 3.4-5.0 Th [facility] Comment on above: Performed By: #### C MP ####[facility] [place] Yowraarpzt[address] [place], [place] [address]Dr. Madelynlorri Elvis Albumin/Globulin [Mass ratio] 0.8 {ratio} Normal [facility] Comment on above: Performed By: #### C MP ####[facility] [place] Rufhjtsovm[address] [place], [place] [address]Dr. Farhat Leal ALP [Catalytic activity/Vol] 68 U/L Normal 46-116 [facility] Comment on above: Performed By: #### C MP ####[facility] [place] Negsoafmdf6014 [place] [address]Dr. Farhat Leal ALT [Catalytic activity/Vol] 20 U/L Normal 16-63 [facility] Comment on above: Performed By: #### C MP ####[facility] [place] Pmryydcryz7059 [place] [address]Dr. Farhat Leal Anion gap [Moles/Vol] 11.1 mmol/L Normal Th e [facility] [place] Comment on above: Performed By: #### C MP ####[facility] [place] Viuwwdxdox[address] [place], [place] [address]Dr. Farhat Leal AST [Catalytic activity/Vol] 22 U/L Normal 15-37 [facility] Comment on above: Performed By: #### C MP ####[facility] [place] Clbbxszgap[address] [place], [place] [address]Dr. Farhat Elvis Bilirubin [Mass/Vol] 0.4 mg/dL Normal 0.2-1.0 [facility] Comment on above: Performed By: #### C MP ####[facility] [place] Agnsrzxgzr[address] [place], [place] [address]Dr. Farhat Elvis Calcium [Mass/Vol] 8.5 mg/dL Normal 8.5-10.1 [facility] Comment on above: Performed By: #### C MP ####[facility] [place] Rvssjpayjh5143 [place] [address]Dr. Farhat Elvis Chloride [Moles/Vol] 106 mmol/L Normal 98-107 [facility] Comment on above: Performed By: #### C MP ####[facility] [place] Gaqfnfucpc5726 [place] [address]Dr. Farhat Elvis CO2 [Moles/Vol] 29.1 mmol/L Normal 21.0-32.0 [facility] Comment on above: Performed By: #### C MP ####[facility] [place] Gsccsjtvgk3801 [place] [address]DrSkylar Leal Creatinine [Mass/Vol] 1.70 mg/dL Critically high 0.70-1.30 [facility] Comment on above: Performed By: #### C MP ####[facility] [place] Vsnghajkyj4758 [place] [address]Dr. Farhat Elvis EGFR-AF NICARAGUAN 48 mL/min/1.73m2 Critically low >=60 [facility] Comment on above: Performed By: #### C MP ####[facility] [place] Psbhtzwhhf5724 [place] [address]Dr. Farhat Leal EGFR-NON AF NICARAGUAN 39 mL/min/1.73m2 Critically low >=60 [facility] Comment on above: Performed By: #### C MP ####[facility] [place] Bvypmxiesz18[address] [place], [place] [address]Dr. Farhat Leal Globulin (S) [Mass/Vol] 3.6 g/dL Normal [facility] Comment on above: Performed By: #### C MP ####[facility] [place] Pdycyrrcut4[address] [place], [place] [address]Dr. Farhat Leal Glucose [Mass/Vol] 312 mg/dL Critically high 74-106 [facility] Comment on above: Performed By: #### C MP ####[facility] [place] Lrqcyumxsu[address] [place], [place] [address]Dr. Farhat Leal Potassium [Moles/Vol] 4.2 mmol/L Normal 3.5-5.1 [facility] Comment on above: Performed By: #### C MP ####[facility] [place] Qqlumarrwz7425 [place] [address]Dr. Farhat Leal Protein [Mass/Vol] 6.4 g/dL Normal 6.4-8.2 [facility] Comment on above: Performed By: #### C MP ####[facility] [place] Kihmuzpbhp[address] [place], [place] [address]Dr. Farhat Leal Sodium [Moles/Vol] 142 mmol/L Normal 136-145 [facility] Comment on above: Performed By: #### C MP ####[facility] [place] Kvpcmixkyk[address] [place], [place] [address]Dr. Farhat Leal Urea nitrogen [Mass/Vol] 49.0 mg/dL Critically high 7.0-18.0 [facility] Comment on above: Performed By: #### C MP ####[facility] [place] Kzeokgtang5832 [place] [address]DrSkylar Leal Urea nitrogen/Creatinine [Mass ratio] 28.8 mg/mg Normal The [facility] [place] Comment on above: Performed By: #### C MP ####[facility] [place] Fkuosyzjay[address] [place], [place] [address]DrSkylar Leal PROTIMEon 07-03-2022 INR Coag (PPP) [Relative time] 2.23 {INR} Normal The [facility] [place] Comment on above: Performed By: #### P T ####[facility] [place] Xvatgykycg4[address] [place], [place] [address]DrSkylar Leal INR GUIDELINES SEE BELOW Normal [facility] Comment on above: Result Comment: MALINA RED INR: 2.0 - 3.0 CONDITIONS NOT LISTED BELOW 2.5 - 3.5 FOR PROSTHETIC HEART VALVE REPLACEMENT 2.5 - 3.5 RECURRENT THROMBOSIS Performed By: #### P T ####[facility] [place] Ogdetrxhyz[address] [place], [place] [address]DrSkylar Leal PT Coag (PPP) [Time] 22.6 s Critically high 9.0-11.6 The [facility] [place] Comment on above: Performed By: #### P T ####[facility] [place] Gtlqtsrfgw[address] [place], [place] [address]DrSkylar Leal FK506 (TACROLIMUS) WHOLE BLO ODon 06-29-2022 Tacrolimus (FK506), Blood 12.2 ng/mL Normal 2.0-20.0 [facility] Comment on above: Result Comment: Trou gh (immediately following transplant) 15.0 . Trough (steady state, 2 weeks or more after transplant): 3.0 - 8.0 . Performed by LC-MS/MS technology. Performed By: #### F K506T ####[facility] [place] Gwpfjdvmlo[address] [place], [place] [address]DrSkylar Leal CBC AUTO DIFFon 06-26-2022 BASO # 0.0 103/ul Normal 0.0-0.1 The [facility] [place] Comment on above: Performed By: #### C BC ####[facility] [place] Safjjcqnha8820 [place] [address]Dr. Farhat Leal Basophils/100 WBC (Bld) 0.5 % Normal 0.2-2.0 The [facility] [place] Comment on above: Performed By: #### C BC ####[facility] [place] Wpztqmwigc[address] [place], [place] [address]Dr. Farhat Leal EO # 0.3 103/ul Normal 0.0-0.7 The [facility] [place] Comment on above: Performed By: #### C BC ####[facility] [place] Tpqvmpgbnp7[address] [place], [place] [address]Dr. Farhat Leal Eosinophils/100 WBC (Bld) 4.3 % Normal 0.9-7.0 The [facility] [place] Comment on above: Performed By: #### C BC ####[facility] [place] Ykrpswpeka[address] [place], [place] [address]Dr. Farhat Leal Erythrocyte distribution width (RBC) [Ratio] 14.1 % Normal 11.0-15.0 [facility] Comment on above: Performed By: #### C BC ####[facility] [place] Ybycpphvdo[address] [place], [place] [address]Dr. Farhat Leal Hematocrit (Bld) [Volume fraction] 35.4 % Critically low 42.0-54.0 [facility] Comment on above: Performed By: #### C BC ####[facility] [place] Eccxhwhcxx[address] [place], [place] [address]Dr. Farhat Leal Hemoglobin (Bld) [Mass/Vol] 11.8 g/dL Critically low 14.0-18.0 The [facility] [place] Comment on above: Performed By: #### C BC ####[facility] [place] Ciqjextvfz94[address] [place], [place] [address]Dr. Farhat Leal IG # 0.02 10e3/ul Normal 0.00-0.03 The [facility] [place] Comment on above: Performed By: #### C BC ####[facility] [place] Uwkqgpwqzu[address] [place], [place] [address]Dr. Farhat Leal IG % 0.3 % Normal 0.0-0.5 [facility] Comment on above: Performed By: #### C BC ####[facility] [place] Faughsjipq1909 [place] [address]Dr. Madelynlorri Elvis LYMPH # 2.4 103/ul Normal 1.2-3.8 [facility] Comment on above: Performed By: #### C BC ####[facility] [place] Doxmsqvwbx3938 [place] [address]Dr. Farhat Leal Lymphocytes/100 WBC (Bld) 40.4 % Normal 20.5-60.0 [facility] Comment on above: Performed By: #### C BC ####[facility] [place] Mxmarrurua8252 [place] [address]DrSkylar Leal MANUAL DIFF REQ NO Normal [facility] Comment on above: Performed By: #### C BC ####[facility] [place] Ybsklmhzkz[address] [place], [place] [address]Dr. Farhat Leal MCH (RBC) [Entitic mass] 31.0 pg Normal 25.9-34.0 [facility] Comment on above: Performed By: #### C BC ####[facility] [place] Jirevfyttn6694 [place] [address]Dr. Farhat Leal MCHC (RBC) [Mass/Vol] 33.3 g/dL Normal 29.9-35.2 [facility] Comment on above: Performed By: #### C BC ####[facility] [place] Ntcqwyrear7557 [place] [address]Dr. Farhat Leal MCV (RBC) [Entitic vol] 92.9 fL Normal 80.0-94.0 [facility] Comment on above: Performed By: #### C BC ####[facility] [place] Ynuqtlscjg[address] [place], [place] [address]DrSkylar Leal MONO # 0.7 103/ul Normal 0.3-0.8 [facility] Comment on above: Performed By: #### C BC ####[facility] [place] Kytgwnetoo1306 [place] [phone]. Farhat Leal Monocytes/100 WBC (Bld) 11.1 % Normal 1.7-12.0 [facility] Comment on above: Performed By: #### C BC ####[facility] [place] Xtpghbxfov8752 [place] [address]Dr. Farhat Leal NEUT # 2.6 103/ul Normal 1.4-6.5 [facility] Comment on above: Performed By: #### C BC ####[facility] [place] Uohftirmij0455 [place] [phone] Leal Neutrophils/100 WBC (Bld) 43.4 % Normal 43.0-75.0 [facility] Comment on above: Performed By: #### C BC ####[facility] [place] Yensonbwtt6806 [place] [address]Dr. Farhat Leal Platelet mean volume (Bld) [Entitic vol] 10.4 fL Normal 9.5-13.5 [facility] Comment on above: Performed By: #### C BC ####[facility] [place] Srxymhumpi8624 [place] [address]Dr. Farhat Leal PLT 211 103/ul Normal 150-450 [facility] Comment on above: Performed By: #### C BC ####[facility] [place] Wijsqxioih[address] [place], [place] [id number]. Farhat Leal RBC 3.81 106/ul Critically low 4.70-6.10 [facility] Comment on above: Performed By: #### C BC ####[facility] [place] Svhgkolhgr4160 [place] [phone]. Farhat Leal WBC 6.0 103/ul Normal 4.0-11.0 [facility] Comment on above: Performed By: #### C BC ####[facility] [place] Khyxlpkrvw9818 [place] [phone] Leal PROF 14(COMP METB)on 023 Albumin [Mass/Vol] 2.6 g/dL Critically low 3.4-5.0 Th [facility] Comment on above: Performed By: #### C MP ####[facility] [place] Jecfounsty9750 [place] [address]DrSkylar Leal Albumin/Globulin [Mass ratio] 0.8 {ratio} Normal [facility] Comment on above: Performed By: #### C MP ####[facility] [place] Stynfpvslt6602 [place] [address]Dr. Farhat Elvis ALP [Catalytic activity/Vol] 64 U/L Normal 46-116 [facility] Comment on above: Performed By: #### C MP ####[facility] [place] Xpxfijizsd0167 [place] [address]Dr. Farhat Elvis ALT [Catalytic activity/Vol] 18 U/L Normal 16-63 [facility] Comment on above: Performed By: #### C MP ####[facility] [place] Tykfraiuuo[address] [place], [place] [address]Dr. Farhat Leal Anion gap [Moles/Vol] 10.2 mmol/L Normal [facility] Comment on above: Performed By: #### C MP ####[facility] [place] Rizoodsmsn[address] [place], [place] [address]Dr. Farhat Leal AST [Catalytic activity/Vol] 16 U/L Normal 15-37 [facility] Comment on above: Performed By: #### C MP ####[facility] [place] Rkzklkswpe[address] [place], [place] [address]Dr. Farhat Leal Bilirubin [Mass/Vol] 0.6 mg/dL Normal 0.2-1.0 [facility] Comment on above: Performed By: #### C MP ####[facility] [place] Dficotboxu[address] [place], [place] [address]Dr. Farhat Leal Calcium [Mass/Vol] 8.5 mg/dL Normal 8.5-10.1 [facility] Comment on above: Performed By: #### C MP ####[facility] [place] Hgybzmjdks[address] [place], [place] [address]Dr. Farhat Leal Chloride [Moles/Vol] 106 mmol/L Normal 98-107 [facility] Comment on above: Performed By: #### C MP ####[facility] [place] Nnveeydlii[address] [place], [place] [address]Dr. Farhat Leal CO2 [Moles/Vol] 29.8 mmol/L Normal 21.0-32.0 [facility] Comment on above: Performed By: #### C MP ####[facility] [place] Glbgnzxasq2919 [place] [phone]. Farhat Leal Creatinine [Mass/Vol] 1.60 mg/dL Critically high 0.70-1.30 [facility] Comment on above: Performed By: #### C MP ####[facility] [place] Ebonuegxba2816 [place] [phone]. Farhat Leal EGFR-AF NICARAGUAN 51 mL/min/1.73m2 Critically low >=60 [facility] Comment on above: Performed By: #### C MP ####[facility] [place] Xrlkkqhdqh1632 [place] [phone]. Farhat Leal EGFR-NON AF NICARAGUAN 42 mL/min/1.73m2 Critically low >=60 [facility] Comment on above: Performed By: #### C MP ####[facility] [place] Xirlgbgaxi3515 [place] [phone]. Farhat Elvis Globulin (S) [Mass/Vol] 3.4 g/dL Normal [facility] Comment on above: Performed By: #### C MP ####[facility] [place] Atyopvslsh2340 [place] [phone]. Farhat Leal Glucose [Mass/Vol] 178 mg/dL Critically high 74-106 [facility] Comment on above: Performed By: #### C MP ####[facility] [place] Bkanwttepd0654 [place] [phone]. Farhat Elvis Potassium [Moles/Vol] 4.0 mmol/L Normal 3.5-5.1 [facility] Comment on above: Performed By: #### C MP ####[facility] [place] Gouexfljrj5687 [place], [place] [address]Jr. Farhat Leal Protein [Mass/Vol] 6.0 g/dL Critically low 6.4-8.2 Th [facility] Comment on above: Performed By: #### C MP ####[facility] [place] Ylmoeolane8276 [place] [phone]. Farhat Leal Sodium [Moles/Vol] 142 mmol/L Normal 136-145 [facility] Comment on above: Performed By: #### C MP ####[facility] [place] Yknybkkqif0161 [place] [address]Dr. Farhat Leal Urea nitrogen [Mass/Vol] 49.0 mg/dL Critically high 7.0-18.0 [facility] Comment on above: Performed By: #### C MP ####[facility] [place] Pcgxcbtset9691 [place] [address]Dr. Farhat Leal Urea nitrogen/Creatinine [Mass ratio] 30.6 mg/mg Normal [facility] Comment on above: Performed By: #### C MP ####[facility] [place] Rrhfsnhudz3476 [place] [address]Dr. Farhat Leal PROTIMEon 06-26-2022 INR Coag (PPP) [Relative time] 1.77 {INR} Normal [facility] Comment on above: Performed By: #### P T ####[facility] [place] Emkjcntdyh[address] [place], [place] [address]Dr. Farhat Leal INR GUIDELINES SEE BELOW Normal [facility] Comment on above: Result Comment: MALINA RED INR: 2.0 - 3.0 CONDITIONS NOT LISTED BELOW 2.5 - 3.5 FOR PROSTHETIC HEART VALVE REPLACEMENT 2.5 - 3.5 RECURRENT THROMBOSIS Performed By: #### P T ####[facility] [place] Mgswdfmvmp[address] [place], [place] [address]Dr. Farhat Leal PT Coag (PPP) [Time] 18.2 s Critically high 9.0-11.6 [facility] [place] Comment on above: Performed By: #### P T ####[facility] [place] Myjsdjcxjz[address] [place], [place] [address]Dr. Farhta Leal FK506 (TACROLIMUS) WHOLE BLO ODon 06-22-2022 Tacrolimus (FK506), Blood 24.5 ng/mL Invalid Interpretation Code 2.0-20.0 [facility] Comment on above: Result Comment: Trou gh (immediately following transplant) 15.0 . Trough (steady state, 2 weeks or more after transplant): 3.0 - 8.0 . Performed by LC-MS/MS technology.Patient drug level exceeds published reference range. Evaluateclinically for signs of potential toxicity. Performed By: #### F K506T ####[facility] [place] Jzhltuwbdt0811 [place] [address]Dr. Farhat Leal CBC AUTO DIFFon 06-19-2022 BASO # 0.1 103/ul Normal 0.0-0.1 [facility] Comment on above: Performed By: #### C BC ####[facility] [place] Nzbkyavwrd[address] [place], [place] [address]Dr. Farhat Leal Basophils/100 WBC (Bld) 0.7 % Normal 0.2-2.0 [facility] Comment on above: Performed By: #### C BC ####[facility] [place] Jdnznmhyuo[address] [place], [place] [address]Dr. Madelynlorri Leal EO # 0.4 103/ul Normal 0.0-0.7 [facility] [place] Comment on above: Performed By: #### C BC ####[facility] [place] Giyvqvlheo[address] [place], [place] [address]Dr. Madelynlorri Leal Eosinophils/100 WBC (Bld) 5.7 % Normal 0.9-7.0 [facility] [place] Comment on above: Performed By: #### C BC ####[facility] [place] Cgnlraqsbn[address] [place], [place] [address]Dr. Farhat Elvis Erythrocyte distribution width (RBC) [Ratio] 14.5 % Normal 11.0-15.0 [facility] Comment on above: Performed By: #### C BC ####[facility] [place] Gmravafhyu[address] [place], [place] [address]Dr. Farhat Leal Hematocrit (Bld) [Volume fraction] 34.1 % Critically low 42.0-54.0 [facility] [place] Comment on above: Performed By: #### C BC ####[facility] [place] Pgzzfusyku[address] [place], [place] [address]Dr. Madelynlorri Leal Hemoglobin (Bld) [Mass/Vol] 11.3 g/dL Critically low 14.0-18.0 The [facility] [facility] [place] Comment on above: Performed By: #### C BC ####[facility] [place] Fovimwmas[address] [place], [place] [address]Dr. Farhat Leal IG # 0.02 10e3/ul Normal 0.00-0.03 [facility] Comment on above: Performed By: #### C BC ####[facility] [place] Zbevgtvcmo48[address] [place] [address]Dr. Farhat Leal IG % 0.3 % Normal 0.0-0.5 [facility] Comment on above: Performed By: #### C BC ####[facility] [place] Gpwdcbkysl5[address] [place] [address]Dr. Farhat Leal LYMPH # 3.1 103/ul Normal 1.2-3.8 [facility] Comment on above: Performed By: #### C BC ####[facility] [place] Vifvfpwnpu9380 [place] [address]Dr. Farhat Elvis Lymphocytes/100 WBC (Bld) 40.6 % Normal 20.5-60.0 [facility] Comment on above: Performed By: #### C BC ####[facility] [place] Yzovwqplqh2836 [place] [address]Dr. Farhat Elvis MANUAL DIFF REQ NO Normal [facility] Comment on above: Performed By: #### C BC ####[facility] [place] Sbovluiccl6701 [place] [address]Dr. Farhat Leal MCH (RBC) [Entitic mass] 30.6 pg Normal 25.9-34.0 [facility] Comment on above: Performed By: #### C BC ####[facility] [place] Wvewfnparo[address] [place], [place] [address]Dr. Farhat Elvis MCHC (RBC) [Mass/Vol] 33.1 g/dL Normal 29.9-35.2 [facility] Comment on above: Performed By: #### C BC ####[facility] [place] Owabkuoknt2371 [place] [address]DrSkylar Farhat Elvis MCV (RBC) [Entitic vol] 92.4 fL Normal 80.0-94.0 [facility] Comment on above: Performed By: #### C BC ####[facility] [place] Bqq[address] [place], [place] [address]Dr. Madelynlorri Leal MONO # 0.8 103/ul Normal 0.3-0.8 [facility] Comment on above: Performed By: #### C BC ####[facility] [place] Fnboaimhtu9226 [place] [address]Dr. Farhat Leal Monocytes/100 WBC (Bld) 10.6 % Normal 1.7-12.0 [facility] Comment on above: Performed By: #### C BC ####[facility] [place] Hojnzvlxrt4137 [place] [address]Dr. Farhat Leal NEUT # 3.2 103/ul Normal 1.4-6.5 [facility] Comment on above: Performed By: #### C BC ####[facility] [place] Wiwcwvdcgl7641 [place] [address]Dr. Farhat Leal Neutrophils/100 WBC (Bld) 42.1 % Critically low 43.0-75.0 [facility] Comment on above: Performed By: #### C BC ####[facility] [place] Hdyhazcjnw5093 [place] [address]Dr. Farhat Leal Platelet mean volume (Bld) [Entitic vol] 10.6 fL Normal 9.5-13.5 The [facility] [place] Comment on above: Performed By: #### C BC ####[facility] [place] Mlejclzszt0564 [place] [address]Dr. Farhat Leal PLT 187 103/ul Normal 150-450 The [facility] [place] Comment on above: Performed By: #### C BC ####[facility] [place] Jwltxdykrh2630 [place] [address]Dr. Farhat Leal RBC 3.69 106/ul Critically low 4.70-6.10 The [facility] Comment on above: Performed By: #### C BC ####[facility] [place] Njtipnuqdw8021 [place] [phone]. Farhat Leal WBC 7.7 103/ul Normal 4.0-11.0 The [facility] [place] Comment on above: Performed By: #### C BC ####[facility] [place] Mjsgycweui5929 [place] [address]DrSkylar Leal PROF 14(COMP METB)on 023 Albumin [Mass/Vol] 2.5 g/dL Critically low 3.4-5.0 [facility] Comment on above: Performed By: #### C MP ####[facility] [place] Yplyzlwzlf9731 [place] [address]Dr. Madelynlorri Elvis Albumin/Globulin [Mass ratio] 0.8 {ratio} Normal [facility] Comment on above: Performed By: #### C MP ####[facility] [place] Sotohazquo8785 [place] [address]Dr. Farhat Leal ALP [Catalytic activity/Vol] 60 U/L Normal 46-116 [facility] Comment on above: Performed By: #### C MP ####[facility] [place] Llswmnwwlf[address] [place], [place] [address]Dr. Farhat Leal ALT [Catalytic activity/Vol] 16 U/L Normal 16-63 [facility] Comment on above: Performed By: #### C MP ####[facility] [place] Kgeukaibkg[address] [place], [place] [address]Dr. Farhat Leal Anion gap [Moles/Vol] 9.1 mmol/L Normal [facility] Comment on above: Performed By: #### C MP ####[facility] [place] Gkigtzkzcb[address] [place], [place] [address]Dr. Farhat Leal AST [Catalytic activity/Vol] 31 U/L Normal 15-37 [facility] Comment on above: Performed By: #### C MP ####[facility] [place] Tteqxyojps[address] [place], [place] [address]Dr. Farhat Leal Bilirubin [Mass/Vol] 0.3 mg/dL Normal 0.2-1.0 [facility] Comment on above: Performed By: #### C MP ####[facility] [place] Twahnalosy[address] [place], [place] [address]Dr. Farhat Leal Calcium [Mass/Vol] 8.2 mg/dL Critically low 8.5-10.1 Th [facility] Comment on above: Performed By: #### C MP ####[facility] [place] Mz[address] [place], [place] [address]Dr. Farhat Leal Chloride [Moles/Vol] 106 mmol/L Normal 98-107 [facility] Comment on above: Performed By: #### C MP ####[facility] [place] Xcnldgviwv4167 [place] [phone]. Farhat Leal CO2 [Moles/Vol] 27.0 mmol/L Normal 21.0-32.0 [facility] Comment on above: Performed By: #### C MP ####[facility] [place] Ndvxwxqqby7509 [place] [phone]. Farhat Leal Creatinine [Mass/Vol] 1.51 mg/dL Critically high 0.70-1.30 [facility] Comment on above: Performed By: #### C MP ####[facility] [place] Fovnooglws6491 [place] [phone]. Farhat Leal EGFR-AF NICARAGUAN 55 mL/min/1.73m2 Critically low >=60 [facility] Comment on above: Performed By: #### C MP ####[facility] [place] Zbevksdehr0326 [place] [address]Dr. Farhat Elvis EGFR-NON AF NICARAGUAN 45 mL/min/1.73m2 Critically low >=60 [facility] Comment on above: Performed By: #### C MP ####[facility] [place] Defucnvbij8015 [place] [phone]. Farhat Elvis Globulin (S) [Mass/Vol] 3.2 g/dL Normal [facility] Comment on above: Performed By: #### C MP ####[facility] [place] Yqeccccvxa7247 [place] [phone]. Farhat Elvis Glucose [Mass/Vol] 165 mg/dL Critically high 74-106 [facility] Comment on above: Performed By: #### C MP ####[facility] [place] Fbkjcwwzzb8634 [place] [phone]. Farhat Elvis Potassium [Moles/Vol] 4.1 mmol/L Normal 3.5-5.1 [facility] Comment on above: Performed By: #### C MP ####[facility] [place] Fjikqlxaax4470 [place] [phone]. Farhat Elvis Protein [Mass/Vol] 5.7 g/dL Critically low 6.4-8.2 Th e [facility] [place] Comment on above: Performed By: #### C MP ####[facility] [place] Etjtwsnukn[address] [place] [address]Dr. Farhat Leal Sodium [Moles/Vol] 138 mmol/L Normal 136-145 [facility] Comment on above: Performed By: #### C MP ####[facility] [place] Knfedbvffa0346 [place] [address]Dr. Farhat Leal Urea nitrogen [Mass/Vol] 51.0 mg/dL Critically high 7.0-18.0 [facility] Comment on above: Performed By: #### C MP ####[facility] [place] Wcvotngmyo[address] [place], [place] [address]Dr. Farhat Leal Urea nitrogen/Creatinine [Mass ratio] 33.8 mg/mg Normal [facility] Comment on above: Performed By: #### C MP ####[facility] [place] Yklrrlnlti[address] [place], [place] [address]Dr. Farhat Leal FK506 (TACROLIMUS) WHOLE BLO ODon 06-15-2022 Tacrolimus (FK506), Blood 16.4 ng/mL Normal 2.0-20.0 [facility] Comment on above: Result Comment: Trou gh (immediately following transplant) 15.0 . Trough (steady state, 2 weeks or more after transplant): 3.0 - 8.0 . Performed by LC-MS/MS technology. Performed By: #### F K506T ####[facility] [place] Ntlcjialht[address] [place], [place] [address]Dr. Farhat Leal PROTIMEon 06-15-2022 INR Coag (PPP) [Relative time] 1.64 {INR} Normal [facility] Comment on above: Performed By: #### P T ####[facility] [place] Niztlkhwkf[address] [place], [place] [address]Dr. Farhat Leal INR GUIDELINES SEE BELOW Normal [facility] Comment on above: Result Comment: MALINA RED INR: 2.0 - 3.0 CONDITIONS NOT LISTED BELOW 2.5 - 3.5 FOR PROSTHETIC HEART VALVE REPLACEMENT 2.5 - 3.5 RECURRENT THROMBOSIS Performed By: #### P T ####[facility] [place] Vpmiduthge[address] [place], [place] [address]Dr. Farhat Leal PT Coag (PPP) [Time] 16.9 s Critically high 9.0-11.6 The [facility] [place] Comment on above: Performed By: #### P T ####[facility] [place] Z[address]crwarkh[address] [place], [place] [address]Dr. Farhat Leal CBC AUTO DIFFon 06-12-2022 BASO # 0.0 103/ul Normal 0.0-0.1 The [facility] [place] Comment on above: Performed By: #### C BC ####[facility] [place] Jcelexqtjp[address] [place], [place] [address]Dr. Farhat Leal Basophils/100 WBC (Bld) 0.4 % Normal 0.2-2.0 The [facility] [place] Comment on above: Performed By: #### C BC ####[facility] [place] Tgiqpagayy[address] [place], [place] [address]Dr. Farhat Leal EO # 0.4 103/ul Normal 0.0-0.7 The [facility] [place] Comment on above: Performed By: #### C BC ####[facility] [place] Hzkgxujtkt[address] [place], [place] [address]Dr. Farhat Leal Eosinophils/100 WBC (Bld) 5.4 % Normal 0.9-7.0 The [facility] [place] Comment on above: Performed By: #### C BC ####[facility] [place] Gngbqqpkpc[address] [place], [place] [address]Dr. Farhat Leal Erythrocyte distribution width (RBC) [Ratio] 14.7 % Normal 11.0-15.0 The [facility] [place] Comment on above: Performed By: #### C BC ####[facility] [place] Oxcmbodryg[address] [place], [place] [address]Dr. Farhat Leal Hematocrit (Bld) [Volume fraction] 34.8 % Critically low 42.0-54.0 The [facility] [place] Comment on above: Performed By: #### C BC ####[facility] [place] Igiuczoitd[address] [place], [place] [address]Dr. Farhat Leal Hemoglobin (Bld) [Mass/Vol] 11.7 g/dL Critically low 14.0-18.0 The [facility] [place] Comment on above: Performed By: #### C BC ####[facility] [place] Afatxakbbo3057 [place] [phone]. Farhat Elvis IG # 0.02 10e3/ul Normal 0.00-0.03 [facility] Comment on above: Performed By: #### C BC ####[facility] [place] Ifnhboyutm0496 [place] [phone]. Farhat Leal IG % 0.3 % Normal 0.0-0.5 [facility] Comment on above: Performed By: #### C BC ####[facility] [place] Avciomahhu1250 [place] [phone]. Farhat Leal LYMPH # 2.5 103/ul Normal 1.2-3.8 The [facility] [place] Comment on above: Performed By: #### C BC ####[facility] [place] Phdwqcmyom9413 [place] [address]Dr. Farhat Leal Lymphocytes/100 WBC (Bld) 36.8 % Normal 20.5-60.0 [facility] Comment on above: Performed By: #### C BC ####[facility] [place] Ueyiqiqvpe9453 [place] [phone]. Farhat Leal MANUAL DIFF REQ NO Normal [facility] Comment on above: Performed By: #### C BC ####[facility] [place] Zuccqsxywm6236 [place] [phone]. Madelynlorri Leal MCH (RBC) [Entitic mass] 30.9 pg Normal 25.9-34.0 [facility] Comment on above: Performed By: #### C BC ####[facility] [place] Klxafdfvlp4677 [place] [phone]. Farhat Elvis MCHC (RBC) [Mass/Vol] 33.6 g/dL Normal 29.9-35.2 The [facility] [place] Comment on above: Performed By: #### C BC ####[facility] [place] Wonzrmaafh8827 [place] [phone]. Farhat Leal MCV (RBC) [Entitic vol] 91.8 fL Normal 80.0-94.0 [facility] Comment on above: Performed By: #### C BC ####[facility] [place] Cnlrqpxwqa7908 [place] [phone]. Farhat Leal MONO # 0.8 103/ul Normal 0.3-0.8 The [facility] [place] Comment on above: Performed By: #### C BC ####[facility] [place] Lyyofjbezt7702 [place] [phone]. Farhat Leal Monocytes/100 WBC (Bld) 11.9 % Normal 1.7-12.0 [facility] Comment on above: Performed By: #### C BC ####[facility] [place] Idcdnyhldr3576 [place] [phone]. Farhat Leal NEUT # 3.1 103/ul Normal 1.4-6.5 The [facility] [place] Comment on above: Performed By: #### C BC ####[facility] [place] Hsvgzavgsq8428 [place] [address]Dr. Farhat Leal Neutrophils/100 WBC (Bld) 45.2 % Normal 43.0-75.0 The [facility] [place] Comment on above: Performed By: #### C BC ####[facility] [place] Qcztzwdlwk7607 [place] [phone]. Farhat Leal Platelet mean volume (Bld) [Entitic vol] 10.5 fL Normal 9.5-13.5 The [facility] [place] Comment on above: Performed By: #### C BC ####[facility] [place] Zfsfllziza6040 [place] [phone]. Farhat Leal PLT 175 103/ul Normal 150-450 The [facility] [place] Comment on above: Performed By: #### C BC ####[facility] [place] Dshlaqykfs2045 [place] [phone]. Farhat Leal RBC 3.79 106/ul Critically low 4.70-6.10 The [facility] Comment on above: Performed By: #### C BC ####[facility] [place] Hnmaplwrfg1561 [place] [phone]. Farhat Leal WBC 6.8 103/ul Normal 4.0-11.0 The [facility] [place] Comment on above: Performed By: #### C BC ####[facility] [place] Lieajlcmkm9430 [place] [address]Dr. Farhat Leal MAGNESIUMon 06-12-2022 Magnesium [Mass/Vol] 1.6 mg/dL Critically low 1.8-2.4 [facility] Comment on above: Performed By: #### C MP, MG, PHOS ####[facility] [place] Bblsjudcdk7068 [place] [address]Dr. Farhat Leal PHOSPHORUSon 06-12-2022 Phosphate [Mass/Vol] 3.8 mg/dL Normal 2.6-4.7 [facility] Comment on above: Performed By: #### C MP, MG, PHOS ####[facility] [place] Nuxqconwrd9901 [place] [address]Dr. Farhat Leal PROF 14(COMP METB)on 023 Albumin [Mass/Vol] 2.6 g/dL Critically low 3.4-5.0 [facility] Comment on above: Performed By: #### C MP, MG, PHOS ####[facility] [place] Jklcfjyqxq0987 [place] [address]Dr. Farhat Leal Albumin/Globulin [Mass ratio] 0.8 {ratio} Normal [facility] Comment on above: Performed By: #### C MP, MG, PHOS ####[facility] [place] Gxgxjfafnf0497 [place] [address]Dr. Farhat Leal ALP [Catalytic activity/Vol] 64 U/L Normal 46-116 [facility] Comment on above: Performed By: #### C MP, MG, PHOS ####[facility] [place] Ysukmpukvd1944 [place] [address]Dr. Farhat Leal ALT [Catalytic activity/Vol] 18 U/L Normal 16-63 [facility] Comment on above: Performed By: #### C MP, MG, PHOS ####[facility] [place] Grbegkzdix5114 [place] [address]Dr. Farhat Leal Anion gap [Moles/Vol] 12.9 mmol/L Normal [facility] Comment on above: Performed By: #### C MP, MG, PHOS ####[facility] [place] Tuiswvrtas4704 [place] [address]Dr. Farhat Leal AST [Catalytic activity/Vol] 18 U/L Normal 15-37 The [facility] [place] Comment on above: Performed By: #### C MP, MG, PHOS ####[facility] [place] Nowwbloikr1300 [place] [address]Dr. Frahat Leal Bilirubin [Mass/Vol] 0.4 mg/dL Normal 0.2-1.0 The [facility] [place] Comment on above: Performed By: #### C MP, MG, PHOS ####[facility] [place] Akekgcvcyq5549 [place] [address]Dr. Farhat Leal Calcium [Mass/Vol] 8.7 mg/dL Normal 8.5-10.1 [facility] Comment on above: Performed By: #### C MP, MG, PHOS ####[facility] [place] [address]qryuem[address] [place], [place] [address]Dr. Farhat Leal Chloride [Moles/Vol] 105 mmol/L Normal 98-107 The [facility] [place] Comment on above: Performed By: #### C MP, MG, PHOS ####[facility] [place] Ngqnlgpjlf[address] [place], [place] [address]Dr. Farhat Leal CO2 [Moles/Vol] 27.9 mmol/L Normal 21.0-32.0 [facility] Comment on above: Performed By: #### C MP, MG, PHOS ####[facility] [place] Hovlractlu8939 [place] [address]Dr. Farhat Leal Creatinine [Mass/Vol] 1.53 mg/dL Critically high 0.70-1.30 [facility] Comment on above: Performed By: #### C MP, MG, PHOS ####[facility] [place] Nhgzbvebom8180 [place] [address]Dr. Farhat Leal EGFR-AF NICARAGUAN 54 mL/min/1.73m2 Critically low >=60 The [facility] [place] Comment on above: Performed By: #### C MP, MG, PHOS ####[facility] [place] Rhjbmvwgrf9588 [place] [address]Dr. Farhat Leal EGFR-NON AF NICARAGUAN 44 mL/min/1.73m2 Critically low >=60 [facility] Comment on above: Performed By: #### C MP, MG, PHOS ####[facility] [place] Mobgvpinfj9655 [place] [address]Dr. Farhat Leal Globulin (S) [Mass/Vol] 3.4 g/dL Normal [facility] Comment on above: Performed By: #### C MP, MG, PHOS ####[facility] [place] Bnwkbglgrr8905 [place] [address]Dr. Farhat Leal Glucose [Mass/Vol] 179 mg/dL Critically high 74-106 [facility] Comment on above: Performed By: #### C MP, MG, PHOS ####[facility] [place] Ewjgaspezd1727 [place] [address]Dr. Farhat Leal Potassium [Moles/Vol] 3.8 mmol/L Normal 3.5-5.1 [facility] Comment on above: Performed By: #### C MP, MG, PHOS ####[facility] [place] W[address]ylw[address] [place], [place] [address]Dr. Farhat Leal Protein [Mass/Vol] 6.0 g/dL Critically low 6.4-8.2 Th [facility] Comment on above: Performed By: #### C MP, MG, PHOS ####[facility] [place] Hzanqjbxtq8724 [place] [address]Dr. Farhat Leal Sodium [Moles/Vol] 142 mmol/L Normal 136-145 [facility] Comment on above: Performed By: #### C MP, MG, PHOS ####[facility] [place] Ybpempumnd0456 [place] [address]Dr. Farhat Leal Urea nitrogen [Mass/Vol] 56.0 mg/dL Critically high 7.0-18.0 [facility] Comment on above: Performed By: #### C MP, MG, PHOS ####[facility] [place] Azhlbnzplq9342 [place] [address]Dr. Farhat Leal Urea nitrogen/Creatinine [Mass ratio] 36.6 mg/mg [facility] Comment on above: Performed By: #### C MP, MG, PHOS ####[facility] [place] Uiasjfcjbg8332 [place] [address]Dr. Farhat Leal FK506 (TACROLIMUS) WHOLE BLO ODon 06-08-2022 Tacrolimus (FK506), Blood 13.2 ng/mL Normal 2.0-20.0 [facility] Comment on above: Result Comment: Trou gh (immediately following transplant) 15.0 . Trough (steady state, 2 weeks or more after transplant): 3.0 - 8.0 . Performed by LC-MS/MS technology. Performed By: #### F K506T ####[facility] [place] Eynrlozuvp[address] [place], [place] [address]Dr. Farhat Leal CBC AUTO DIFFon 06-05-2022 BASO # 0.1 103/ul Normal 0.0-0.1 [facility] Comment on above: Performed By: #### C BC ####[facility] [place] D[address]aufjpkm[address] [place], [place] [address]Dr. Farhat Leal Basophils/100 WBC (Bld) 0.8 % Normal 0.2-2.0 [facility] Comment on above: Performed By: #### C BC ####[facility] [facility] [place] Xwxzijadmb[address] [place], [place] [address]Dr. Farhat Leal EO # 0.3 103/ul Normal 0.0-0.7 [facility] [place] Comment on above: Performed By: #### C BC ####[facility] [place] Jtkmyklce[address] [place], [place] [address]Dr. Farhat Leal Eosinophils/100 WBC (Bld) 4.7 % Normal 0.9-7.0 [facility] [place] Comment on above: Performed By: #### C BC ####[facility] [place] Ro[address]sc[address]cyf[address] [place], [place] [address]Dr. Farhat Leal Erythrocyte distribution width (RBC) [Ratio] 15.1 % Critically high 11.0-15.0 [facility] Comment on above: Performed By: #### C BC ####[facility] [place] Gjmknexiom[address] [place], [place] [address]Dr. Farhat Leal Hematocrit (Bld) [Volume fraction] 35.5 % Critically low 42.0-54.0 [facility] Comment on above: Performed By: #### C BC ####[facility] [place] [address] [place] [address]Dr. Farhat Leal Hemoglobin (Bld) [Mass/Vol] 11.7 g/dL Critically low 14.0-18.0 [facility] Comment on above: Performed By: #### C BC ####[facility] [place] [address] [place] [address]Dr. Madelynlorri Leal IG # 0.01 10e3/ul Normal 0.00-0.03 [facility] Comment on above: Performed By: #### C BC ####[facility] [place] Axhzhtjxac[address] [place] [address]Dr. Farhat Leal IG % 0.2 % Normal 0.0-0.5 [facility] Comment on above: Performed By: #### C BC ####[facility] [place] Eoqqqamlxa[address] [place], [place] [address]Dr. Farhat Leal LYMPH # 2.1 103/ul Normal 1.2-3.8 [facility] Comment on above: Performed By: #### C BC ####[facility] [place] M[address]zg[address]kyf[address] [place], [place] [address]Dr. Farhat Leal Lymphocytes/100 WBC (Bld) 34.5 % Normal 20.5-60.0 [facility] Comment on above: Performed By: #### C BC ####[facility] [place] [address]qvhdwc[address] [place] [address]Dr. Farhat Leal MANUAL DIFF REQ NO Normal [facility] Comment on above: Performed By: #### C BC ####[facility] [place] I[address]wnvneir[address] [place] [address]Dr. Farhat Leal MCH (RBC) [Entitic mass] 30.6 pg Normal 25.9-34.0 [facility] [place] Comment on above: Performed By: #### C BC ####[facility] [place] [address]uqfkefczx[address] [place] [address]Dr. Farhat Leal MCHC (RBC) [Mass/Vol] 33.0 g/dL Normal 29.9-35.2 [facility] [place] Comment on above: Performed By: #### C BC ####[facility] [place] K[address]ststopqt4[address] [place] [phone]. Farhat Leal MCV (RBC) [Entitic vol] 92.9 fL Normal 80.0-94.0 [facility] [place] Comment on above: Performed By: #### C BC ####[facility] [place] Kwflswmcmb[address] [place] [phone]. Farhat Leal MONO # 0.7 103/ul Normal 0.3-0.8 [facility] Comment on above: Performed By: #### C BC ####[facility] [place] T[address]xehoetlx[address] [place] [address]Dr. Farhat Leal Monocytes/100 WBC (Bld) 11.4 % Normal 1.7-12.0 [facility] Comment on above: Performed By: #### C BC ####[facility] [place] Outithpozw[address] [place], [place] [address]Dr. Farhat Leal NEUT # 2.9 103/ul Normal 1.4-6.5 [facility] Comment on above: Performed By: #### C BC ####[facility] [place] U[address]of[address]jus[address] [place], [place] [id number]. Farhat Leal Neutrophils/100 WBC (Bld) 48.4 % Normal 43.0-75.0 [facility] [place] Comment on above: Performed By: #### C BC ####[facility] [place] Vpoynxvjla[address] [place] [phone]. Farhat Leal Platelet mean volume (Bld) [Entitic vol] 10.7 fL Normal 9.5-13.5 [facility] [place] Comment on above: Performed By: #### C BC ####[facility] [place] Rfkqimfpjj[address] [place] [phone]. Farhat Leal PLT 185 103/ul Normal 150-450 [facility] [place] Comment on above: Performed By: #### C BC ####[facility] [place] Vdgmdjfbzy8154 [place] [phone]. Farhat Leal RBC 3.82 106/ul Critically low 4.70-6.10 [facility] Comment on above: Performed By: #### C BC ####[facility] [place] Rkqlvpxdwj9[address] [place] [address]Dr. Madelynlorri Leal WBC 6.0 103/ul Normal 4.0-11.0 [facility] Comment on above: Performed By: #### C BC ####[facility] [place] Rqqpmymyag[address] [place] [address]Dr. Farhat Leal MAGNESIUMon 06-05-2022 Magnesium [Mass/Vol] 1.9 mg/dL Normal 1.8-2.4 [facility] [place] Comment on above: Performed By: #### P HOS, MG ####[facility] [place] J[address]seojwy[address] [place] [address]Dr. Farhat Leal PHOSPHORUSon 06-05-2022 Phosphate [Mass/Vol] 4.4 mg/dL Normal 2.6-4.7 [facility] [place] Comment on above: Performed By: #### P HOS, MG ####[facility] [place] Rcvokpulgu[address] [place], [place] [address]Dr. Farhat Leal PROTIMEon 06-05-2022 INR Coag (PPP) [Relative time] 2.16 {INR} Normal [facility] [place] Comment on above: Performed By: #### P T ####[facility] [place] Qjrvxlhbgo[address] [place], [place] [address]Dr. Farhat Leal INR GUIDELINES SEE BELOW Normal [facility] Comment on above: Result Comment: MALINA RED INR: 2.0 - 3.0 CONDITIONS NOT LISTED BELOW 2.5 - 3.5 FOR PROSTHETIC HEART VALVE REPLACEMENT 2.5 - 3.5 RECURRENT THROMBOSIS Performed By: #### P T ####[facility] [place] Lxujgcdgdm3[address] [place] [address]Dr. Farhat Leal PT Coag (PPP) [Time] 21.9 s Critically high 9.0-11.6 [facility] [place] Comment on above: Performed By: #### P T ####[facility] [place] Bu[address] [place], [place] [address]Dr. Farhat Leal FK506 (TACROLIMUS) WHOLE BLO ODon 06-01-2022 Tacrolimus (FK506), Blood 26.4 ng/mL Invalid Interpretation Code 2.0-20.0 [facility] [place] Comment on above: Result Comment: Trou gh (immediately following transplant) 15.0 . Trough (steady state, 2 weeks or more after transplant): 3.0 - 8.0 . Performed by LC-MS/MS technology.Patient drug level exceeds published reference range. Evaluateclinically for signs of potential toxicity. Performed By: #### F K506T ####[facility] [place] Wh[address]mfudv[address] [place], [place] [address]DrSkylar Leal CBC AUTO DIFFon 05-29-2022 BASO # 0.0 103/ul Normal 0.0-0.1 [facility] [place] Comment on above: Performed By: #### C BC ####[facility] [place] Mttryycxwg[address] [place], [place] [address]DrSkylar Leal Basophils/100 WBC (Bld) 0.6 % Normal 0.2-2.0 [facility] Comment on above: Performed By: #### C BC ####[facility] [place] Wnwt[address]wgd[address] [place], [place] [address]DrSkylar Leal EO # 0.3 103/ul Normal 0.0-0.7 [facility] [place] Comment on above: Performed By: #### C BC ####[facility] [place] Uq[address]smrmoe[address] [place], [place] [address]DrSkylar Leal Eosinophils/100 WBC (Bld) 4.7 % Normal 0.9-7.0 [facility] [place] Comment on above: Performed By: #### C BC ####[facility] [place] Zv[address]aztmy[address] [place], [place] [address]DrSkylar Leal Erythrocyte distribution width (RBC) [Ratio] 15.3 % Critically high 11.0-15.0 [facility] [place] Comment on above: Performed By: #### C BC ####[facility] [place] Cvnzmqdjic[address] [place], [place] [address]DrSkylar Leal Hematocrit (Bld) [Volume fraction] 36.6 % Critically low 42.0-54.0 [facility] [place] Comment on above: Performed By: #### C BC ####[facility] [place] G[address]dzmlyr[address] [place], [place] [address]Dr. Farhat Leal Hemoglobin (Bld) [Mass/Vol] 12.3 g/dL Critically low 14.0-18.0 [facility] [place] Comment on above: Performed By: #### C BC ####[facility] [place] Ev[address]ubauvmi[address] [place] [address]Dr. Farhat Leal IG # 0.02 10e3/ul Normal 0.00-0.03 [facility] [place] Comment on above: Performed By: #### C BC ####[facility] [place] Lfiivvnrji[address] [place], [place] [address]Dr. Farhat Leal IG % 0.3 % Normal 0.0-0.5 [facility] [place] Comment on above: Performed By: #### C BC ####[facility] [place] Jytnqfhidv[address] [place], [place] [address]Dr. Farhat Leal LYMPH # 2.8 103/ul Normal 1.2-3.8 [facility] [place] Comment on above: Performed By: #### C BC ####[facility] [place] Nrwrkmbwxv[address] [place], [place] [address]Dr. Farhat Leal Lymphocytes/100 WBC (Bld) 44.4 % Normal 20.5-60.0 [facility] [place] Comment on above: Performed By: #### C BC ####[facility] [place] Chxnxygahq[address] [place], [place] [address]DrSkylar Leal MANUAL DIFF REQ NO Normal [facility] Comment on above: Performed By: #### C BC ####[facility] [place] N[address]zfsskx[address] [place], [place] [address]Dr. Farhat Leal MCH (RBC) [Entitic mass] 30.4 pg Normal 25.9-34.0 [facility] [place] Comment on above: Performed By: #### C BC ####[facility] [place] Efexhbnjua[address] [place], [place] [address]Dr. Farhat Leal MCHC (RBC) [Mass/Vol] 33.6 g/dL Normal 29.9-35.2 [facility] [place] Comment on above: Performed By: #### C BC ####[facility] [place] Cqsgwqqtsh[address] [place], [place] [address]Dr. Farhat Leal MCV (RBC) [Entitic vol] 90.4 fL Normal 80.0-94.0 [facility] [place] Comment on above: Performed By: #### C BC ####[facility] [place] Inbdkygjkr[address] [place], [place] [address]DrSkylar Leal MONO # 0.7 103/ul Normal 0.3-0.8 [facility] [place] Comment on above: Performed By: #### C BC ####[facility] [place] Llxrvzybvd[address] [place], [place] [address]DrSkylar Farhat Leal Monocytes/100 WBC (Bld) 10.7 % Normal 1.7-12.0 [facility] [place] Comment on above: Performed By: #### C BC ####[facility] [place] T[address]wrjlva[address] [place], [place] [address]DrSkylar Farhat Leal NEUT # 2.5 103/ul Normal 1.4-6.5 [facility] [place] Comment on above: Performed By: #### C BC ####[facility] [place] W[address]boxewjcl[address] [place], [place] [address]DrSkylar Farhat Leal Neutrophils/100 WBC (Bld) 39.3 % Critically low 43.0-75.0 [facility] [place] Comment on above: Performed By: #### C BC ####[facility] [place] Syexcqdwug[address] [place], [place] [address]DrSkylar Farhat Leal Platelet mean volume (Bld) [Entitic vol] 10.5 fL Normal 9.5-13.5 [facility] [place] Comment on above: Performed By: #### C BC ####[facility] [place] O[address]qnbafaj[address] [place], [place] [address]DrSkylar Farhat Elvis PLT 190 103/ul Normal 150-450 [facility] [place] Comment on above: Performed By: #### C BC ####[facility] [place] Msaylprkfa[address] [place], [place] [address]DrSkylar Joshilorri Elvis RBC 4.05 106/ul Critically low 4.70-6.10 [facility] Comment on above: Performed By: #### C BC ####[facility] [place] Btvphqmnlk[address] [place], [place] [address]Dr. Farhat Leal WBC 6.4 103/ul Normal 4.0-11.0 [facility] Comment on above: Performed By: #### C BC ####[facility] [place] Byzetpdkqq5[address] [place], [place] [address]Dr. Farhat Leal PROF 14(COMP METB)on 023 Albumin [Mass/Vol] 2.5 g/dL Critically low 3.4-5.0 [facility] Comment on above: Performed By: #### C MP ####[facility] [place] Eltvwtpcha[address] [place], [place] [address]Dr. Farhat Leal Albumin/Globulin [Mass ratio] 0.8 {ratio} Normal [facility] Comment on above: Performed By: #### C MP ####[facility] [place] J[address]wctqiz[address] [place], [place] [address]Dr. Farhat Leal ALP [Catalytic activity/Vol] 61 U/L Normal 46-116 [facility] Comment on above: Performed By: #### C MP ####[facility] [place] H[address]esfsguer[address] [place], [place] [address]Dr. Farhat Leal ALT [Catalytic activity/Vol] 16 U/L Normal 16-63 [facility] Comment on above: Performed By: #### C MP ####[facility] [place] Clacsirxjj[address] [place], [place] [address]Dr. Farhat Leal Anion gap [Moles/Vol] 12.3 mmol/L Normal [facility] Comment on above: Performed By: #### C MP ####[facility] [place] Dulwquqahs[address] [place], [place] [address]Dr. Farhat Leal AST [Catalytic activity/Vol] 18 U/L Normal 15-37 [facility] [place] Comment on above: Performed By: #### C MP ####[facility] [place] [address]zuejrrn[address] [place], [place] [address]Dr. Farhat Leal Bilirubin [Mass/Vol] 0.5 mg/dL Normal 0.2-1.0 [facility] Comment on above: Performed By: #### C MP ####[facility] [place] Ekldtbivzl[address] [place], [place] [address]Dr. Farhat Leal Calcium [Mass/Vol] 8.6 mg/dL Normal 8.5-10.1 [facility] Comment on above: Performed By: #### C MP ####[facility] [place] Hdsxjxmexg[address] [place], [place] [address]Dr. Farhat Leal Chloride [Moles/Vol] 105 mmol/L Normal 98-107 [facility] Comment on above: Performed By: #### C MP ####[facility] [place] Budhggnwjd7[address] [place], [place] [address]Dr. Farhat Leal CO2 [Moles/Vol] 28.6 mmol/L Normal 21.0-32.0 [facility] Comment on above: Performed By: #### C MP ####[facility] [place] Uvkpowcmrr[address] [place], [place] [address]Dr. Farhat Leal Creatinine [Mass/Vol] 1.47 mg/dL Critically high 0.70-1.30 [facility] Comment on above: Performed By: #### C MP ####[facility] [place] Piksistdxh[address] [place], [place] [address]Dr. Farhat Leal EGFR-AF NICARAGUAN 56 mL/min/1.73m2 Critically low >=60 [facility] Comment on above: Performed By: #### C MP ####[facility] [place] Kmxyqwperp[address] [place], [place] [address]Dr. Farhat Leal EGFR-NON AF NICARAGUAN 46 mL/min/1.73m2 Critically low >=60 [facility] Comment on above: Performed By: #### C MP ####[facility] [place] Wzkfassohp[address] [place], [place] [address]Dr. Farhat Leal Globulin (S) [Mass/Vol] 3.3 g/dL Normal [facility] Comment on above: Performed By: #### C MP ####[facility] [place] Celcovaakr[address] [place], [place] [address]Dr. Farhat Leal Glucose [Mass/Vol] 164 mg/dL Critically high 74-106 [facility] Comment on above: Performed By: #### C MP ####[facility] [place] S[address]yejte[address] [place], [place] [address]Dr. Farhat Leal Potassium [Moles/Vol] 3.9 mmol/L Normal 3.5-5.1 [facility] Comment on above: Performed By: #### C MP ####[facility] [place] Kjhwpiwxdp[address] [place], [place] [address]Dr. Farhat Leal Protein [Mass/Vol] 5.8 g/dL Critically low 6.4-8.2 Th e [facility] [place] Comment on above: Performed By: #### C MP ####[facility] [place] G[address]wvewet[address] [place], [place] [address]Dr. Farhat Leal Sodium [Moles/Vol] 142 mmol/L Normal 136-145 [facility] Comment on above: Performed By: #### C MP ####[facility] [place] Evzqnzxgyf[address] [place], [place] [address]Dr. Farhat Leal Urea nitrogen [Mass/Vol] 53.0 mg/dL Critically high 7.0-18.0 [facility] Comment on above: Performed By: #### C MP ####[facility] [place] R[address]wsfsjnwh[address] [place], [place] [address]Dr. Farhat Leal Urea nitrogen/Creatinine [Mass ratio] 36.1 mg/mg Normal [facility] Comment on above: Performed By: #### C MP ####[facility] [place] F[address]quotoxz[address] [place], [place] [address]DrSkylar Leal PROTIMEon 05-29-2022 INR Coag (PPP) [Relative time] 2.41 {INR} Normal [facility] Comment on above: Performed By: #### P T ####[facility] [place] Ukvkdgvabq[address] [place], [place] [address]Dr. Farhat Leal INR GUIDELINES SEE BELOW Normal [facility] Comment on above: Result Comment: MALINA RED INR: 2.0 - 3.0 CONDITIONS NOT LISTED BELOW 2.5 - 3.5 FOR PROSTHETIC HEART VALVE REPLACEMENT 2.5 - 3.5 RECURRENT THROMBOSIS Performed By: #### P T ####[facility] [place] Vwpwdwbvyr[address] [place], [place] [address]Dr. Farhat Leal PT Coag (PPP) [Time] 24.3 s Critically high 9.0-11.6 [facility] Comment on above: Performed By: #### P T ####[facility] [place] C[address]tkt[address] [place], [place] [address]Dr. Farhat Elvis FK506 (TACROLIMUS) WHOLE BLO ODon 05-25-2022 Tacrolimus (FK506), Blood 5.1 ng/mL Normal 2.0-20.0 [facility] Comment on above: Result Comment: Trou gh (immediately following transplant) 15.0 . Trough (steady state, 2 weeks or more after transplant): 3.0 - 8.0 . Performed by LC-MS/MS technology. Performed By: #### F K506T ####[facility] [place] Xlvvcvvfxg[address] [place], [place] [address]Dr. Farhat Leal CBC AUTO DIFFon 05-22-2022 BASO # 0.0 103/ul Normal 0.0-0.1 [facility] Comment on above: Performed By: #### C BC ####[facility] [place] Etykvzgtsi[address] [place], [place] [address]Dr. Farhat Leal Basophils/100 WBC (Bld) 0.5 % Normal 0.2-2.0 [facility] Comment on above: Performed By: #### C BC ####[facility] [place] R[address]ffui[address] [place], [place] [address]Dr. Farhat Leal EO # 0.2 103/ul Normal 0.0-0.7 [facility] [place] Comment on above: Performed By: #### C BC ####[facility] [place] Q[address]whzjb[address] [place], [place] [address]Dr. Farhat Leal Eosinophils/100 WBC (Bld) 4.0 % Normal 0.9-7.0 [facility] [place] Comment on above: Performed By: #### C BC ####[facility] [place] [address]wgwzed[address] [place], [place] [address]DrSkylar Leal Erythrocyte distribution width (RBC) [Ratio] 15.5 % Critically high 11.0-15.0 [facility] Comment on above: Performed By: #### C BC ####[facility] [place] R[address]zisxtpy[address] [place], [place] [address]DrSkylar Leal Hematocrit (Bld) [Volume fraction] 34.1 % Critically low 42.0-54.0 [facility] Comment on above: Performed By: #### C BC ####[facility] [place] N[address]wucepp[address] [place] [address]Dr. Farhat Elvis Hemoglobin (Bld) [Mass/Vol] 11.3 g/dL Critically low 14.0-18.0 [facility] Comment on above: Performed By: #### C BC ####[facility] [place] [address]jstrqkwp[address] [place] [address]Dr. Madelynlorri Elvis IG # 0.03 10e3/ul Normal 0.00-0.03 [facility] Comment on above: Performed By: #### C BC ####[facility] [place] Ijalmnlnro[address] [place], [place] [address]Dr. Farhat Leal IG % 0.5 % Normal 0.0-0.5 [facility] Comment on above: Performed By: #### C BC ####[facility] [place] Y[address]hvjhio[address] [place], [place] [address]Dr. Farhat Leal LYMPH # 2.1 103/ul Normal 1.2-3.8 [facility] Comment on above: Performed By: #### C BC ####[facility] [place] W[address]xnavkc[address] [place], [place] [address]Dr. Farhat Leal Lymphocytes/100 WBC (Bld) 34.6 % Normal 20.5-60.0 [facility] Comment on above: Performed By: #### C BC ####[facility] [place] Nmqugiuzdp[address] [place] [address]Dr. Farhat Leal MANUAL DIFF REQ NO Normal [facility] Comment on above: Performed By: #### C BC ####[facility] [place] Ezhmpltvjc1126 [place] [phone]. Farhat Leal MCH (RBC) [Entitic mass] 30.3 pg Normal 25.9-34.0 The [facility] [place] Comment on above: Performed By: #### C BC ####[facility] [place] Afbchksajf[address] [place] [address]Dr. Farhat Leal MCHC (RBC) [Mass/Vol] 33.1 g/dL Normal 29.9-35.2 [facility] Comment on above: Performed By: #### C BC ####[facility] [place] Dbrjsptduw5172 [place] [phone]. Farhat Leal MCV (RBC) [Entitic vol] 91.4 fL Normal 80.0-94.0 The [facility] [place] Comment on above: Performed By: #### C BC ####[facility] [place] Tbwckcfnso2078 [place] [phone]. Farhat Leal MONO # 0.7 103/ul Normal 0.3-0.8 [facility] Comment on above: Performed By: #### C BC ####[facility] [place] Yrnavgfaei3390 [place] [address]Dr. Farhat Leal Monocytes/100 WBC (Bld) 11.6 % Normal 1.7-12.0 The [facility] [place] Comment on above: Performed By: #### C BC ####[facility] [place] Nceuajivvb[address] [place], [place] [address]Dr. aFrhat Leal NEUT # 2.9 103/ul Normal 1.4-6.5 The [facility] [place] Comment on above: Performed By: #### C BC ####[facility] [place] Jhganqcayh[address] [place], [place] [id number]. Farhat Leal Neutrophils/100 WBC (Bld) 48.8 % Normal 43.0-75.0 The [facility] [place] Comment on above: Performed By: #### C BC ####[facility] [place] Kq[address]bxyw[address] [place], [place] [id number]. Farhat Leal Platelet mean volume (Bld) [Entitic vol] 10.9 fL Normal 9.5-13.5 The [facility] [place] Comment on above: Performed By: #### C BC ####[facility] [place] Voyqwzpttj[address] [place], [place] [id number]. Farhat Leal PLT 186 103/ul Normal 150-450 The [facility] [place] Comment on above: Performed By: #### C BC ####[facility] [place] Ltdcdpbtvw7428 [place] [phone]. Madelynlorri Elvis RBC 3.73 106/ul Critically low 4.70-6.10 The [facility] Comment on above: Performed By: #### C BC ####[facility] [place] Sioifwdbiz4967 [place] [address]Dr. Farhat Leal WBC 6.0 103/ul Normal 4.0-11.0 [facility] Comment on above: Performed By: #### C BC ####[facility] [place] Wzrvllfagl7094 [place] [address]Dr. Farhat Leal PROF 14(COMP METB)on 023 Albumin [Mass/Vol] 2.7 g/dL Critically low 3.4-5.0 Th e [facility] [place] Comment on above: Performed By: #### C MP ####[facility] [place] Gjrmbhpcku5107 [place] [address]Dr. Farhat Leal Albumin/Globulin [Mass ratio] 0.8 {ratio} Normal [facility] Comment on above: Performed By: #### C MP ####[facility] [place] Cpqmxzsgva3097 [place] [address]Dr. Farhat Leal ALP [Catalytic activity/Vol] 60 U/L Normal 46-116 [facility] Comment on above: Performed By: #### C MP ####[facility] [place] Iblztdxsdg[address] [place], [place] [address]Dr. Farhat Leal ALT [Catalytic activity/Vol] 17 U/L Normal 16-63 [facility] Comment on above: Performed By: #### C MP ####[facility] [place] Oqljrecpht8097 [place] [address]Dr. Farhat Leal Anion gap [Moles/Vol] 9.6 mmol/L Normal [facility] Comment on above: Performed By: #### C MP ####[facility] [place] Iypxxkhbky5514 [place] [address]Dr. Farhat Leal AST [Catalytic activity/Vol] 14 U/L Critically low 15-37 [facility] Comment on above: Performed By: #### C MP ####[facility] [place] Uhkltpvuji8986 [place] [address]Dr. Farhat Leal Bilirubin [Mass/Vol] 0.5 mg/dL Normal 0.2-1.0 [facility] Comment on above: Performed By: #### C MP ####[facility] [place] Odahyyzpor4299 [place] [phone]. Farhat Leal Calcium [Mass/Vol] 8.4 mg/dL Critically low 8.5-10.1 Th e [facility] [place] Comment on above: Performed By: #### C MP ####[facility] [place] Shiajzoleo2791 [place] [phone]. Farhat Leal Chloride [Moles/Vol] 104 mmol/L Normal 98-107 [facility] Comment on above: Performed By: #### C MP ####[facility] [place] Dftrewmunc5615 [place] [address]Dr. Farhat Leal CO2 [Moles/Vol] 27.2 mmol/L Normal 21.0-32.0 [facility] Comment on above: Performed By: #### C MP ####[facility] [place] Mxdervbzdb[address] [place], [place] [address]Dr. Farhat Leal Creatinine [Mass/Vol] 1.24 mg/dL Normal 0.70-1.30 [facility] Comment on above: Performed By: #### C MP ####[facility] [place] Znukycdndd[address] [place], [place] [address]Dr. Farhat Leal EGFR-AF NICARAGUAN >60 Normal >=60 [facility] Comment on above: Performed By: #### C MP ####[facility] [place] Ogzhgpytig0507 [place] [phone]. Farhat Leal EGFR-NON AF NICARAGUAN 57 mL/min/1.73m2 Critically low >=60 [facility] Comment on above: Performed By: #### C MP ####[facility] [place] Vdqdxhhbid0769 [place] [phone]. Farhat Leal Globulin (S) [Mass/Vol] 3.3 g/dL Normal [facility] Comment on above: Performed By: #### C MP ####[facility] [place] Fyjlexpbjn7518 [place] [phone]. Farhat Elvis Glucose [Mass/Vol] 275 mg/dL Critically high 74-106 T [facility] Comment on above: Performed By: #### C MP ####[facility] [place] Nmuinumaot6786 [place] [address]Dr. Farhat Leal Potassium [Moles/Vol] 3.8 mmol/L Normal 3.5-5.1 [facility] Comment on above: Performed By: #### C MP ####[facility] [place] Igyxkvxbkb1111 [place] [address]Dr. Farhat Leal Protein [Mass/Vol] 6.0 g/dL Critically low 6.4-8.2 Th [facility] Comment on above: Performed By: #### C MP ####[facility] [place] Jjonicrxdd12[address] [place], [place] [address]Dr. Farhat Leal Sodium [Moles/Vol] 137 mmol/L Normal 136-145 [facility] Comment on above: Performed By: #### C MP ####[facility] [place] Uuvfxhhvqq[address] [place], [place] [address]Dr. Farhat Leal Urea nitrogen [Mass/Vol] 54.0 mg/dL Critically high 7.0-18.0 [facility] Comment on above: Performed By: #### C MP ####[facility] [place] Xkkyqrhdkk[address] [place], [place] [address]Dr. Farhat Leal Urea nitrogen/Creatinine [Mass ratio] 43.5 mg/mg Normal [facility] Comment on above: Performed By: #### C MP ####[facility] [place] Rafspqntwb[address] [place], [place] [address]Dr. Farhat Leal PROTIMEon 05-22-2022 INR Coag (PPP) [Relative time] 2.27 {INR} Normal [facility] Comment on above: Performed By: #### P T ####[facility] [place] Cbbitsolwj01[address] [place], [place] [address]Dr. Farhat Leal INR GUIDELINES SEE BELOW Normal [facility] Comment on above: Result Comment: MALINA RED INR: 2.0 - 3.0 CONDITIONS NOT LISTED BELOW 2.5 - 3.5 FOR PROSTHETIC HEART VALVE REPLACEMENT 2.5 - 3.5 RECURRENT THROMBOSIS Performed By: #### P T ####[facility] [place] Ufkeqwudsj[address] [place], [place] [address]Dr. Farhat Leal PT Coag (PPP) [Time] 23.0 s Critically high 9.0-11.6 The [facility] [place] Comment on above: Performed By: #### P T ####[facility] [place] Crllirjzjz[address] [place], [place] [address]Dr. Farhat Leal FK506 (TACROLIMUS) WHOLE BLO ODon 05-19-2022 Tacrolimus (FK506), Blood 7.8 ng/mL Normal 2.0-20.0 The [facility] [place] Comment on above: Result Comment: Trou gh (immediately following transplant) 15.0 . Trough (steady state, 2 weeks or more after transplant): 3.0 - 8.0 . Performed by LC-MS/MS technology. Performed By: #### F K506T ####[facility] [place] Cckwjceedw6[address] [place], [place] [address]Dr. Farhat Leal CBC AUTO DIFFon 05-15-2022 BASO # 0.0 103/ul Normal 0.0-0.1 The [facility] [place] Comment on above: Performed By: #### C BC ####[facility] [place] Cyjoebrqlf[address] [place], [place] [address]Dr. Farhat Leal Basophils/100 WBC (Bld) 0.4 % Normal 0.2-2.0 The [facility] [place] Comment on above: Performed By: #### C BC ####[facility] [place] Mgfysnmmxl[address]15[address] [place], [place] [address]Dr. Farhat Leal EO # 0.2 103/ul Normal 0.0-0.7 The [facility] [place] Comment on above: Performed By: #### C BC ####[facility] [place] Rnlvyfrdsz454[address] [place], [place] [address]Dr. Farhat Leal Eosinophils/100 WBC (Bld) 3.0 % Normal 0.9-7.0 The [facility] [place] Comment on above: Performed By: #### C BC ####[facility] [place] Lmrbeyygmu00[address] [place], [place] [address]Dr. Farhat Leal Erythrocyte distribution width (RBC) [Ratio] 15.7 % Critically high 11.0-15.0 The [facility] [place] Comment on above: Performed By: #### C BC ####[facility] [place] Xmcsgjgiyt6159 [place] [address]Dr. Farhat Leal Hematocrit (Bld) [Volume fraction] 36.8 % Critically low 42.0-54.0 [facility] Comment on above: Performed By: #### C BC ####[facility] [place] Bsaamfzgmv4632 [place] [address]Dr. Farhat Leal Hemoglobin (Bld) [Mass/Vol] 12.4 g/dL Critically low 14.0-18.0 The [facility] [place] Comment on above: Performed By: #### C BC ####[facility] [place] Zqissqmxfw[address] [place], [place] [address]Dr. Farhat Leal IG # 0.01 10e3/ul Normal 0.00-0.03 The [facility] [place] Comment on above: Performed By: #### C BC ####[facility] [place] Tiegbtqtyw[address]65[address] [place], [place] [address]Dr. Farhat Leal IG % 0.1 % Normal 0.0-0.5 [facility] Comment on above: Performed By: #### C BC ####[facility] [place] Agjjfeqifa[address] [place], [place] [address]Dr. Farhat Leal LYMPH # 2.4 103/ul Normal 1.2-3.8 The [facility] [place] Comment on above: Performed By: #### C BC ####[facility] [place] Qsbwvsqsrt[address] [place], [place] [address]Dr. Farhat Leal Lymphocytes/100 WBC (Bld) 35.6 % Normal 20.5-60.0 The [facility] [place] Comment on above: Performed By: #### C BC ####[facility] [place] Tukelmshgo[address] [place], [place] [address]Dr. Farhat Leal MANUAL DIFF REQ NO Normal The [facility] Comment on above: Performed By: #### C BC ####[facility] [place] Bczszovbmt[address] [place], [place] [address]Dr. Farhat Leal MCH (RBC) [Entitic mass] 30.1 pg Normal 25.9-34.0 The [facility] [place] Comment on above: Performed By: #### C BC ####[facility] [place] Peybsvbwyo8935 [place] [phone]. Farhat Leal MCHC (RBC) [Mass/Vol] 33.7 g/dL Normal 29.9-35.2 The [facility] [place] Comment on above: Performed By: #### C BC ####[facility] [place] Yiknotnlko2434 [place] [phone]. Farhat Leal MCV (RBC) [Entitic vol] 89.3 fL Normal 80.0-94.0 The [facility] [place] Comment on above: Performed By: #### C BC ####[facility] [place] Wgkqrwaico1085 [place] [phone]. Farhat Leal MONO # 0.7 103/ul Normal 0.3-0.8 The [facility] [place] Comment on above: Performed By: #### C BC ####[facility] [place] Totygxsnup7425 [place] [phone]. Madelynlorri Leal Monocytes/100 WBC (Bld) 10.8 % Normal 1.7-12.0 The [facility] [place] Comment on above: Performed By: #### C BC ####[facility] [place] Ouerezepeb4113 [place] [phone]. Farhat Leal NEUT # 3.4 103/ul Normal 1.4-6.5 The [facility] [place] Comment on above: Performed By: #### C BC ####[facility] [place] Iiasodwlyy1566 [place] [phone]. Farhat Elvis Neutrophils/100 WBC (Bld) 50.1 % Normal 43.0-75.0 The [facility] [place] Comment on above: Performed By: #### C BC ####[facility] [place] Zwozultoqh1498 [place] [phone]. Farhat Leal Platelet mean volume (Bld) [Entitic vol] 10.2 fL Normal 9.5-13.5 The [facility] [place] Comment on above: Performed By: #### C BC ####[facility] [place] Zjqmttbhra4411 [place] [phone]. Farhat Elvis PLT 190 103/ul Normal 150-450 The [facility] [place] Comment on above: Performed By: #### C BC ####[facility] [place] Ibhlcicwqa9679 [place] [phone]. Farhat Leal RBC 4.12 106/ul Critically low 4.70-6.10 [facility] Comment on above: Performed By: #### C BC ####[facility] [place] Mbfzlnyrfe8642 [place] [address]Dr. Farhat Leal WBC 6.8 103/ul Normal 4.0-11.0 [facility] Comment on above: Performed By: #### C BC ####[facility] [place] Piucmtenkc5195 [place] [address]Dr. Farhat Leal PROF 14(COMP METB)on 023 Albumin [Mass/Vol] 2.8 g/dL Critically low 3.4-5.0 [facility] Comment on above: Performed By: #### C MP ####[facility] [place] Oyxdxseric[address] [place], [place] [address]Dr. Farhat Leal Albumin/Globulin [Mass ratio] 0.9 {ratio} Normal [facility] Comment on above: Performed By: #### C MP ####[facility] [place] Chwjqtoroj[address] [place], [place] [address]Dr. Farhat Leal ALP [Catalytic activity/Vol] 66 U/L Normal 46-116 [facility] Comment on above: Performed By: #### C MP ####[facility] [place] Ofafnpefnv[address] [place], [place] [address]Dr. Farhat Leal ALT [Catalytic activity/Vol] 15 U/L Critically low 16-63 [facility] Comment on above: Performed By: #### C MP ####[facility] [place] Zoybirbxyj[address] [place], [place] [address]Dr. Farhat Leal Anion gap [Moles/Vol] 11.1 mmol/L Normal Th [facility] Comment on above: Performed By: #### C MP ####[facility] [place] Mqoevknqmw85[address] [place], [place] [address]Dr. Farhat Leal AST [Catalytic activity/Vol] 14 U/L Critically low 15-37 [facility] Comment on above: Performed By: #### C MP ####[facility] [place] Gzzudklmnw1423 [place] [address]Dr. Farhat Leal Bilirubin [Mass/Vol] 0.8 mg/dL Normal 0.2-1.0 The [facility] [place] Comment on above: Performed By: #### C MP ####[facility] [place] Odeomsvnjs6331 [place] [phone]. Farhat Leal Calcium [Mass/Vol] 8.9 mg/dL Normal 8.5-10.1 [facility] Comment on above: Performed By: #### C MP ####[facility] [place] Fykxiqzhwq7332 [place] [phone]. Farhat Leal Chloride [Moles/Vol] 101 mmol/L Normal 98-107 The [facility] [place] Comment on above: Performed By: #### C MP ####[facility] [place] Eqeszcffgj8427 [place] [address]Dr. Farhat Leal CO2 [Moles/Vol] 28.2 mmol/L Normal 21.0-32.0 [facility] Comment on above: Performed By: #### C MP ####[facility] [place] Nvjnhixbqj[address] [place], [place] [address]Dr. Farhat Leal Creatinine [Mass/Vol] 1.23 mg/dL Normal 0.70-1.30 The [facility] [place] Comment on above: Performed By: #### C MP ####[facility] [place] Xmpmylyopw6530 [place] [address]Dr. Farhat Leal EGFR-AF NICARAGUAN >60 Normal >=60 [facility] Comment on above: Performed By: #### C MP ####[facility] [place] Mkrpnrcrqp3559 [place] [address]Dr. Farhat Leal EGFR-NON AF NICARAGUAN 57 mL/min/1.73m2 Critically low >=60 The [facility] [place] Comment on above: Performed By: #### C MP ####[facility] [place] Mzkjzdhyqv[address] [place], [place] [address]Dr. Farhat Leal Globulin (S) [Mass/Vol] 3.2 g/dL Normal The [facility] [place] Comment on above: Performed By: #### C MP ####[facility] [place] Aneetmgtcp[address] [place], [place] [id number]. Farhat Leal Glucose [Mass/Vol] 333 mg/dL Critically high 74-106 T [facility] Comment on above: Performed By: #### C MP ####[facility] [place] Kcovrkvqgg7531 [place] [address]Dr. Farhat Leal Potassium [Moles/Vol] 4.3 mmol/L Normal 3.5-5.1 [facility] Comment on above: Performed By: #### C MP ####[facility] [place] Evfjbncmaz6764 [place] [address]Dr. Farhat Leal Protein [Mass/Vol] 6.0 g/dL Critically low 6.4-8.2 Th [facility] Comment on above: Performed By: #### C MP ####[facility] [place] Kikxinihhc[address] [place], [place] [address]Dr. Farhat Leal Sodium [Moles/Vol] 136 mmol/L Normal 136-145 [facility] Comment on above: Performed By: #### C MP ####[facility] [place] Syjwtlfzll[address] [place], [place] [address]Dr. Farhat Elvis Urea nitrogen [Mass/Vol] 58.0 mg/dL Critically high 7.0-18.0 [facility] Comment on above: Performed By: #### C MP ####[facility] [place] Tnulntgoxb[address] [place], [place] [address]Dr. Farhat Elvis Urea nitrogen/Creatinine [Mass ratio] 47.2 mg/mg Normal [facility] Comment on above: Performed By: #### C MP ####[facility] [place] Erljaezowj84[address] [place], [place] [address]Dr. Farhat Leal PROTIMEon 05-13-2022 INR Coag (PPP) [Relative time] 3.51 {INR} Normal [facility] Comment on above: Performed By: #### P T ####[facility] [place] Slnnqyaidi[address] [place], [place] [address]Dr. Farhat Leal INR GUIDELINES SEE BELOW Normal [facility] Comment on above: Result Comment: MALINA RED INR: 2.0 - 3.0 CONDITIONS NOT LISTED BELOW 2.5 - 3.5 FOR PROSTHETIC HEART VALVE REPLACEMENT 2.5 - 3.5 RECURRENT THROMBOSIS Performed By: #### P T ####[facility] [place] Jbootiokzi50[address] [place], [place] [address]Dr. Farhat Leal PT Coag (PPP) [Time] 34.7 s Critically high 9.0-11.6 [facility] Comment on above: Performed By: #### P T ####[facility] [place] Qztkuhrnmq[address] [place], [place] [address]DrSkylar Leal FK506 (TACROLIMUS) WHOLE BLO ODon 05-11-2022 Tacrolimus (FK506), Blood 14.4 ng/mL Normal 2.0-20.0 The [facility] [place] Comment on above: Result Comment: Trou gh (immediately following transplant) 15.0 . Trough (steady state, 2 weeks or more after transplant): 3.0 - 8.0 . Performed by LC-MS/MS technology. Performed By: #### F K506T ####[facility] [place] Rijlngojul[address] [place], [place] [address]DrSkylar Leal CBC AUTO DIFFon 05-08-2022 BASO # 0.0 103/ul Normal 0.0-0.1 The [facility] [place] Comment on above: Performed By: #### C BC ####[facility] [place] Ofgvedqdqo668[address] [place], [place] [address]Dr. Farhat Leal Basophils/100 WBC (Bld) 0.5 % Normal 0.2-2.0 The [facility] [place] Comment on above: Performed By: #### C BC ####[facility] [place] Rgcnamvbrj[address] [place], [place] [address]Dr. Farhat Leal EO # 0.2 103/ul Normal 0.0-0.7 The [facility] [place] Comment on above: Performed By: #### C BC ####[facility] [facility] [place] [address]en[address] [place], [place] [address]DrSkylar Leal Eosinophils/100 WBC (Bld) 2.9 % Normal 0.9-7.0 [facility] [place] Comment on above: Performed By: #### C BC ####[facility] [place] [address] [place], [place] [address]DrSkylar Leal Erythrocyte distribution width (RBC) [Ratio] 16.0 % Critically high 11.0-15.0 [facility] Comment on above: Performed By: #### C BC ####[facility] [place] [address]zzvhrtbbd[address] [place] [address]Dr. Farhat Leal Hematocrit (Bld) [Volume fraction] 35.7 % Critically low 42.0-54.0 [facility] Comment on above: Performed By: #### C BC ####[facility] [place] Wdsqctfnfe[address] [place], [place] [address]Dr. Farhat Leal Hemoglobin (Bld) [Mass/Vol] 11.9 g/dL Critically low 14.0-18.0 [facility] Comment on above: Performed By: #### C BC ####[facility] [place] Mbzgyungiz[address] [place], [place] [address]Dr. Farhat Leal IG # 0.03 10e3/ul Normal 0.00-0.03 [facility] Comment on above: Performed By: #### C BC ####[facility] [place] Pjzbutcqpm[address] [place], [place] [address]Dr. Madelynlorri Leal IG % 0.5 % Normal 0.0-0.5 [facility] Comment on above: Performed By: #### C BC ####[facility] [place] E[address]omszxap[address] [place], [place] [address]DrSkylar Farhat Leal LYMPH # 2.4 103/ul Normal 1.2-3.8 [facility] [place] Comment on above: Performed By: #### C BC ####[facility] [place] U[address]usoxoln[address] [place], [place] [address]DrSkylar Madelynlorri Leal Lymphocytes/100 WBC (Bld) 37.8 % Normal 20.5-60.0 [facility] [place] Comment on above: Performed By: #### C BC ####[facility] [place] G[address]msybvll[address] [place], [place] [address]DrSkylar Leal MANUAL DIFF REQ NO Normal [facility] Comment on above: Performed By: #### C BC ####[facility] [place] Nmlaozzubf[address] [place], [place] [address]DrSkylar Leal MCH (RBC) [Entitic mass] 30.4 pg Normal 25.9-34.0 [facility] Comment on above: Performed By: #### C BC ####[facility] [place] Wxcutapoaw[address] [place] [address]DrSkylar Leal MCHC (RBC) [Mass/Vol] 33.3 g/dL Normal 29.9-35.2 [facility] [place] Comment on above: Performed By: #### C BC ####[facility] [place] Omtacrvmtp[address] [place], [place] [address]DrSkylar Leal MCV (RBC) [Entitic vol] 91.1 fL Normal 80.0-94.0 [facility] [place] Comment on above: Performed By: #### C BC ####[facility] [place] Qfubfgzdyj[address] [place], [place] [address]DrSkylar Leal MONO # 0.7 103/ul Normal 0.3-0.8 [facility] [place] Comment on above: Performed By: #### C BC ####[facility] [place] L[address]jacprjm[address] [place], [place] [address]DrSkylar Leal Monocytes/100 WBC (Bld) 11.1 % Normal 1.7-12.0 [facility] [place] Comment on above: Performed By: #### C BC ####[facility] [place] Rys[address]uswsfz[address] [place], [place] [address]DrSkylar Leal NEUT # 2.9 103/ul Normal 1.4-6.5 [facility] [place] Comment on above: Performed By: #### C BC ####[facility] [place] K[address]ny[address] [place], [place] [address]DrSkylar Leal Neutrophils/100 WBC (Bld) 47.2 % Normal 43.0-75.0 [facility] [place] Comment on above: Performed By: #### C BC ####[facility] [place] Ptnlqpqsvv[address] [place], [place] [address]DrSkylar Leal Platelet mean volume (Bld) [Entitic vol] 11.0 fL Normal 9.5-13.5 [facility] [place] Comment on above: Performed By: #### C BC ####[facility] [place] Msbiyuxvv[address] [place], [place] [address]DrSkylar Leal PLT 191 103/ul Normal 150-450 [facility] [place] Comment on above: Performed By: #### C BC ####[facility] [place] Vmnbnfoowq[address] [place] [address]Dr. Farhat Leal RBC 3.92 106/ul Critically low 4.70-6.10 [facility] Comment on above: Performed By: #### C BC ####[facility] [place] Gallajrmwn[address] [place] [address]Dr. Farhat Leal WBC 6.2 103/ul Normal 4.0-11.0 [facility] [place] Comment on above: Performed By: #### C BC ####[facility] [place] Hqwilouyny[address] [place] [address]Dr. Farhat Leal MAGNESIUMon 05-08-2022 Magnesium [Mass/Vol] 1.9 mg/dL Normal 1.8-2.4 [facility] [place] Comment on above: Performed By: #### P HOS, MG ####[facility] [place] Pqehdyxtqz[address] [place] [address]Dr. Farhat Leal PHOSPHORUSon 05-08-2022 Phosphate [Mass/Vol] 4.5 mg/dL Normal 2.6-4.7 [facility] [place] Comment on above: Performed By: #### P HOS, MG ####[facility] [place] P[address]zdjixowe[address] [place] [address]Dr. Farhat Leal PROF 14(COMP METB)on 023 Albumin [Mass/Vol] 2.9 g/dL Critically low 3.4-5.0 [facility] Comment on above: Performed By: #### C MP ####[facility] [place] Yvcfritxww[address] [place] [address]Dr. Farhat Leal Albumin/Globulin [Mass ratio] 0.9 {ratio} Normal The [facility] [place] Comment on above: Performed By: #### C MP ####[facility] [place] Agmqhiuoha[address] [place] [address]Dr. Farhat Leal ALP [Catalytic activity/Vol] 70 U/L Normal 46-116 [facility] [place] Comment on above: Performed By: #### C MP ####[facility] [place] Ryzlnrecmq56[address] [place] [phone]. Farhat Leal ALT [Catalytic activity/Vol] 13 U/L Critically low 16-63 [facility] [place] Comment on above: Performed By: #### C MP ####[facility] [place] Pkcrmgxobs2[address] [place] [phone]. Farhat Leal Anion gap [Moles/Vol] 14.6 mmol/L Normal Th [facility] Comment on above: Performed By: #### C MP ####[facility] [place] Dcbtrbezfn1693 [place] [phone]. Farhat Leal AST [Catalytic activity/Vol] 17 U/L Normal 15-37 [facility] Comment on above: Performed By: #### C MP ####[facility] [place] Rtdujpzgoa[address] [place] [address]Dr. Farhat Leal Bilirubin [Mass/Vol] 0.8 mg/dL Normal 0.2-1.0 [facility] [place] Comment on above: Performed By: #### C MP ####[facility] [place] D[address]qavcxx[address] [place], [place] [address]Dr. Farhat Leal Calcium [Mass/Vol] 8.9 mg/dL Normal 8.5-10.1 [facility] Comment on above: Performed By: #### C MP ####[facility] [place] Voyso[address]sv[address] [place], [place] [address]Dr. Farhat Leal Chloride [Moles/Vol] 102 mmol/L Normal 98-107 [facility] [place] Comment on above: Performed By: #### C MP ####[facility] [place] El[address]oknirh[address] [place] [address]Dr. Farhat Leal CO2 [Moles/Vol] 22.9 mmol/L Normal 21.0-32.0 [facility] Comment on above: Performed By: #### C MP ####[facility] [place] Rrhngynakk[address] [place] [address]Dr. Farhat Leal Creatinine [Mass/Vol] 1.20 mg/dL Normal 0.70-1.30 [facility] Comment on above: Performed By: #### C MP ####[facility] [place] Sjrymnfrli340[address] [place] [phone]. Farhat Leal EGFR-AF NICARAGUAN >60 Normal >=60 [facility] Comment on above: Performed By: #### C MP ####[facility] [place] Tvbmwgjkbv9[address] [place] [address]Dr. Farhat Leal EGFR-NON AF NICARAGUAN 59 mL/min/1.73m2 Critically low >=60 [facility] Comment on above: Performed By: #### C MP ####[facility] [place] Pjbzhxjiiu080[address] [place] [address]Dr. Farhat Leal Globulin (S) [Mass/Vol] 3.1 g/dL Normal [facility] Comment on above: Performed By: #### C MP ####[facility] [place] Xebfgpbazn[address] [place], [place] [address]Dr. Farhat Leal Glucose [Mass/Vol] 447 mg/dL Critically high 74-106 T [facility] Comment on above: Performed By: #### C MP ####[facility] [place] Bsieaatfqq[address] [place], [place] [address]Dr. Farhat Elvis Potassium [Moles/Vol] 4.5 mmol/L Normal 3.5-5.1 [facility] Comment on above: Performed By: #### C MP ####[facility] [place] Z[address]lftoihd[address] [place], [place] [address]Dr. Farhat Leal Protein [Mass/Vol] 6.0 g/dL Critically low 6.4-8.2 Th [facility] Comment on above: Performed By: #### C MP ####[facility] [place] Gbdzebriwh[address] [place], [place] [address]Dr. Farhat Leal Sodium [Moles/Vol] 135 mmol/L Critically low 136-145 Th [facility] Comment on above: Performed By: #### C MP ####[facility] [place] Meofhpveuu[address] [place], [place] [address]Dr. Farhat Leal Urea nitrogen [Mass/Vol] 52.0 mg/dL Critically high 7.0-18.0 [facility] Comment on above: Performed By: #### C MP ####[facility] [place] Dvxaxhzwop96[address] [place], [place] [address]Dr. Farhat Leal Urea nitrogen/Creatinine [Mass ratio] 43.3 mg/mg Normal [facility] [place] Comment on above: Performed By: #### C MP ####[facility] [place] Npmhifmcln[address] [place], [place] [address]DrSkylar Leal PROTIMEon 05-06-2022 INR Coag (PPP) [Relative time] 2.25 {INR} Normal [facility] [place] Comment on above: Performed By: #### P T ####[facility] [place] Cesqjflsek[address] [place], [place] [address]DrSkylar Leal INR GUIDELINES SEE BELOW Normal [facility] Comment on above: Result Comment: MALINA RED INR: 2.0 - 3.0 CONDITIONS NOT LISTED BELOW 2.5 - 3.5 FOR PROSTHETIC HEART VALVE REPLACEMENT 2.5 - 3.5 RECURRENT THROMBOSIS Performed By: #### P T ####[facility] [place] Cpilwnrenf[address] [place], [place] [address]Dr. Farhat Leal PT Coag (PPP) [Time] 22.8 s Critically high 9.0-11.6 [facility] Comment on above: Performed By: #### P T ####[facility] [place] Jhgtzcqsgv[address] [place], [place] [address]DrSkylar Leal FK506 (TACROLIMUS) WHOLE BLO ODon 05-04-2022 Tacrolimus (FK506), Blood 10.4 ng/mL Normal 2.0-20.0 [facility] Comment on above: Result Comment: Trou gh (immediately following transplant) 15.0 . Trough (steady state, 2 weeks or more after transplant): 3.0 - 8.0 . Performed by LC-MS/MS technology. Performed By: #### F K506T ####[facility] [place] J[address]vtogefhn[address] [place], [place] [address]DrSkylar Leal CBC AUTO DIFFon 05-01-2022 BASO # 0.1 103/ul Normal 0.0-0.1 [facility] Comment on above: Performed By: #### C BC ####[facility] [place] Bebfrpeamw[address] [place], [place] [address]DrSkylar Leal Basophils/100 WBC (Bld) 0.7 % Normal 0.2-2.0 [facility] [place] Comment on above: Performed By: #### C BC ####[facility] [place] V[address]roytss[address] [place], [place] [address]DrSkylar Leal EO # 0.2 103/ul Normal 0.0-0.7 [facility] [place] Comment on above: Performed By: #### C BC ####[facility] [place] Nnjvadcxzq[address] [place], [place] [address]DrSkylar Leal Eosinophils/100 WBC (Bld) 3.2 % Normal 0.9-7.0 [facility] [place] Comment on above: Performed By: #### C BC ####[facility] [place] Bsbdgozvcn[address] [place], [place] [address]Dr. Farhat Leal Erythrocyte distribution width (RBC) [Ratio] 16.4 % Critically high 11.0-15.0 [facility] Comment on above: Performed By: #### C BC ####[facility] [place] Lrpazftfgb[address] [place], [place] [address]Dr. Farhat Leal Hematocrit (Bld) [Volume fraction] 35.1 % Critically low 42.0-54.0 [facility] Comment on above: Performed By: #### C BC ####[facility] [place] M[address]gjp[address] [place], [place] [address]DrSkylar Leal Hemoglobin (Bld) [Mass/Vol] 11.6 g/dL Critically low 14.0-18.0 [facility] [place] Comment on above: Performed By: #### C BC ####[facility] [place] Vrqaxfgcaa[address] [place], [place] [address]DrSkylar Leal IG # 0.03 10e3/ul Normal 0.00-0.03 [facility] [place] Comment on above: Performed By: #### C BC ####[facility] [place] V[address]xmczus[address] [place], [place] [address]DrSkylar Leal IG % 0.4 % Normal 0.0-0.5 [facility] [place] Comment on above: Performed By: #### C BC ####[facility] [place] Mmgukqnsri[address] [place], [place] [address]DrSkylar Leal LYMPH # 2.4 103/ul Normal 1.2-3.8 [facility] [place] Comment on above: Performed By: #### C BC ####[facility] [place] Oiunalodls6[address] [place] [phone] Leal Lymphocytes/100 WBC (Bld) 35.1 % Normal 20.5-60.0 [facility] [place] Comment on above: Performed By: #### C BC ####[facility] [place] Yoadfoqtod[address] [place], [place] [address]DrSkylar Leal MANUAL DIFF REQ NO Normal [facility] Comment on above: Performed By: #### C BC ####[facility] [place] [address]rmxvjfe[address] [place] [address]DrSkylar Leal MCH (RBC) [Entitic mass] 29.4 pg Normal 25.9-34.0 [facility] [place] Comment on above: Performed By: #### C BC ####[facility] [place] Dcluhtcxfu[address] [place], [place] [address]DrSkylar Leal MCHC (RBC) [Mass/Vol] 33.0 g/dL Normal 29.9-35.2 [facility] [place] Comment on above: Performed By: #### C BC ####[facility] [place] Xrrvhpjwme[address] [place], [place] [address]DrSkylar Leal MCV (RBC) [Entitic vol] 88.9 fL Normal 80.0-94.0 [facility] [place] Comment on above: Performed By: #### C BC ####[facility] [place] X[address]hrnwkkul[address] [place], [place] [address]DrSkylar Leal MONO # 0.7 103/ul Normal 0.3-0.8 [facility] [place] Comment on above: Performed By: #### C BC ####[facility] [place] Mrmgecyzza[address] [place], [place] [address]DrSkylar Leal Monocytes/100 WBC (Bld) 9.6 % Normal 1.7-12.0 [facility] [place] Comment on above: Performed By: #### C BC ####[facility] [place] Woxexqdjxl[address] [place], [place] [address]DrSkylar Leal NEUT # 3.5 103/ul Normal 1.4-6.5 [facility] Comment on above: Performed By: #### C BC ####[facility] [place] Icjijkjnxx8[address] [place] [address]DrSkylar Leal Neutrophils/100 WBC (Bld) 51.0 % Normal 43.0-75.0 [facility] Comment on above: Performed By: #### C BC ####[facility] [place] Osmwxejbot80[address] [place] [address]Dr. Farhat Leal Platelet mean volume (Bld) [Entitic vol] 10.3 fL Normal 9.5-13.5 [facility] Comment on above: Performed By: #### C BC ####[facility] [place] Qkjsxglosy[address] [place], [place] [address]Dr. Farhat Leal PLT 184 103/ul Normal 150-450 [facility] Comment on above: Performed By: #### C BC ####[facility] [place] Aepgoirbbm[address] [place], [place] [address]Dr. Farhat Leal RBC 3.95 106/ul Critically low 4.70-6.10 [facility] Comment on above: Performed By: #### C BC ####[facility] [place] D[address]myqvx[address] [place], [place] [address]DrSkylar Leal WBC 7.0 103/ul Normal 4.0-11.0 [facility] Comment on above: Performed By: #### C BC ####[facility] [place] H[address]bxhgqrcy[address] [place], [place] [address]DrSkylar Leal PROF 14(COMP METB)on 023 Albumin [Mass/Vol] 2.6 g/dL Critically low 3.4-5.0 Th [facility] Comment on above: Performed By: #### C MP ####[facility] [place] R[address]xovxyfv[address] [place], [place] [address]DrSkylar Leal Albumin/Globulin [Mass ratio] 0.9 {ratio} Normal [facility] Comment on above: Performed By: #### C MP ####[facility] [place] Wirnruxbfv[address] [place], [place] [address]DrSkylar Leal ALP [Catalytic activity/Vol] 53 U/L Normal 46-116 [facility] Comment on above: Performed By: #### C MP ####[facility] [place] Zedxipfvxj6[address] [place] [address]Dr. Farhat Elvis ALT [Catalytic activity/Vol] 17 U/L Normal 16-63 [facility] Comment on above: Performed By: #### C MP ####[facility] [place] Oikxlppmqr[address] [place] [phone]. Farhat Elvis Anion gap [Moles/Vol] 10.0 mmol/L Normal Th [facility] Comment on above: Performed By: #### C MP ####[facility] [place] O[address]asysvya[address] [place], [place] [address]Dr. Farhat Elvis AST [Catalytic activity/Vol] 19 U/L Normal 15-37 [facility] Comment on above: Performed By: #### C MP ####[facility] [place] Mselaomgec[address] [place], [place] [address]Dr. Farhat Elvis Bilirubin [Mass/Vol] 0.5 mg/dL Normal 0.2-1.0 [facility] Comment on above: Performed By: #### C MP ####[facility] [place] Q[address]oiykzph[address] [place], [place] [address]Dr. Farhat Elvis Calcium [Mass/Vol] 8.4 mg/dL Critically low 8.5-10.1 [facility] Comment on above: Performed By: #### C MP ####[facility] [place] [address]wsjowrs[address] [place], [place] [address]Dr. Farhat Elvis Chloride [Moles/Vol] 108 mmol/L Critically high 98-107 [facility] Comment on above: Performed By: #### C MP ####[facility] [place] B[address]te[address]xvc[address] [place], [place] [address]Dr. Madelynlorri Leal CO2 [Moles/Vol] 26.9 mmol/L Normal 21.0-32.0 [facility] Comment on above: Performed By: #### C MP ####[facility] [place] X[address]ziyksfud[address] [place], [place] [address]Dr. Farhat Elvis Creatinine [Mass/Vol] 1.20 mg/dL Normal 0.70-1.30 [facility] Comment on above: Performed By: #### C MP ####[facility] [place] Woofsyudgw[address] [place] [phone]. Farhat Elvis EGFR-AF NICARAGUAN >60 Normal >=60 [facility] Comment on above: Performed By: #### C MP ####[facility] [place] Oymrftgcev6686 [place] [phone]. Farhat Elvis EGFR-NON AF NICARAGUAN 59 mL/min/1.73m2 Critically low >=60 [facility] Comment on above: Performed By: #### C MP ####[facility] [place] Qlzvhhykck3494 [place] [phone]. Farhat Leal Globulin (S) [Mass/Vol] 3.0 g/dL Normal [facility] Comment on above: Performed By: #### C MP ####[facility] [place] Wbovsbdmqp22[address] [place] [address]Dr. Farhat Leal Glucose [Mass/Vol] 213 mg/dL Critically high 74-106 [facility] Comment on above: Performed By: #### C MP ####[facility] [place] Hdjdwxmnke5320 [place] [phone]. Farhat Leal Potassium [Moles/Vol] 3.9 mmol/L Normal 3.5-5.1 [facility] Comment on above: Performed By: #### C MP ####[facility] [place] Oltwuxaoma18[address] [place] [phone]. Farhat Leal Protein [Mass/Vol] 5.6 g/dL Critically low 6.4-8.2 Th [facility] Comment on above: Performed By: #### C MP ####[facility] [place] Tudktyhdem1786 [place] [phone]. Farhat Leal Sodium [Moles/Vol] 141 mmol/L Normal 136-145 [facility] Comment on above: Performed By: #### C MP ####[facility] [place] Akfqbathvl99[address] [place] [phone]. Farhat Leal Urea nitrogen [Mass/Vol] 61.0 mg/dL Critically high 7.0-18.0 [facility] Comment on above: Performed By: #### C MP ####[facility] [place] [address] [place], [place] [address]DrSkylar Leal Urea nitrogen/Creatinine [Mass ratio] 50.8 mg/mg Normal [facility] [place] Comment on above: Performed By: #### C MP ####[facility] [place] Tjpr[address]kz[address] [place], [place] [address]DrSkylar Leal FK506 (TACROLIMUS) WHOLE BLO ODon 04-27-2022 Tacrolimus (FK506), Blood 16.5 ng/mL Normal 2.0-20.0 [facility] [place] Comment on above: Result Comment: Trou gh (immediately following transplant) 15.0 . Trough (steady state, 2 weeks or more after transplant): 3.0 - 8.0 . Performed by LC-MS/MS technology. Performed By: #### F K506T ####[facility] [place] Uhkftzpsve[address] [place], [place] [address]DrSkylar Leal CBC AUTO DIFFon 04-24-2022 BASO # 0.0 103/ul Normal 0.0-0.1 [facility] [place] Comment on above: Performed By: #### C BC ####[facility] [place] Kyhlzcswts[address] [place], [place] [address]Dr. Farhat Leal Basophils/100 WBC (Bld) 0.5 % Normal 0.2-2.0 [facility] [place] Comment on above: Performed By: #### C BC ####[facility] [place] S[address]tsds[address] [place], [place] [address]DrSkylar Leal EO # 0.2 103/ul Normal 0.0-0.7 [facility] [place] Comment on above: Performed By: #### C BC ####[facility] [place] Njtgv[address] [place], [place] [address]DrSkylar Leal Eosinophils/100 WBC (Bld) 3.1 % Normal 0.9-7.0 [facility] [place] Comment on above: Performed By: #### C BC ####[facility] [place] Oqxknzzlpz[address] [place], [place] [address]Dr. Farhat Leal Erythrocyte distribution width (RBC) [Ratio] 16.3 % Critically high 11.0-15.0 [facility] Comment on above: Performed By: #### C BC ####[facility] [place] [address]ili[address] [place] [address]Dr. Farhat Leal Hematocrit (Bld) [Volume fraction] 34.0 % Critically low 42.0-54.0 [facility] Comment on above: Performed By: #### C BC ####[facility] [place] Mticcadurv[address] [place], [place] [address]DrSkylar Leal Hemoglobin (Bld) [Mass/Vol] 11.6 g/dL Critically low 14.0-18.0 [facility] Comment on above: Performed By: #### C BC ####[facility] [place] Aks[address]pngtc[address] [place], [place] [address]Dr. Farhat Leal IG # 0.02 10e3/ul Normal 0.00-0.03 [facility] Comment on above: Performed By: #### C BC ####[facility] [place] Udrdshjhla[address] [place], [place] [address]Dr. Farhat Leal IG % 0.4 % Normal 0.0-0.5 [facility] Comment on above: Performed By: #### C BC ####[facility] [place] Q[address]sfl[address]xm[address] [place], [place] [address]DrSkylar Leal LYMPH # 2.2 103/ul Normal 1.2-3.8 [facility] Comment on above: Performed By: #### C BC ####[facility] [place] M[address]zdbglv[address] [place], [place] [address]DrSkylar Leal Lymphocytes/100 WBC (Bld) 38.8 % Normal 20.5-60.0 [facility] [place] Comment on above: Performed By: #### C BC ####[facility] [place] Udjddxoubi[address] [place], [place] [address]DrSkylar Leal MANUAL DIFF REQ NO Normal [facility] Comment on above: Performed By: #### C BC ####[facility] [place] Prnktdhoqa[address] [place], [place] [address]DrSkylar Leal MCH (RBC) [Entitic mass] 30.1 pg Normal 25.9-34.0 [facility] Comment on above: Performed By: #### C BC ####[facility] [place] [address]ikejdi[address] [place] [address]Dr. Farhat Leal MCHC (RBC) [Mass/Vol] 34.1 g/dL Normal 29.9-35.2 [facility] [place] Comment on above: Performed By: #### C BC ####[facility] [place] [address]cwh[address] [place], [place] [address]DrSkylar Leal MCV (RBC) [Entitic vol] 88.1 fL Normal 80.0-94.0 [facility] [place] Comment on above: Performed By: #### C BC ####[facility] [place] Hoeqrtmpic[address] [place], [place] [address]DrSkylar Leal MONO # 0.6 103/ul Normal 0.3-0.8 [facility] [place] Comment on above: Performed By: #### C BC ####[facility] [place] Xslhvctgtb[address] [place], [place] [address]Dr. Farhat Leal Monocytes/100 WBC (Bld) 10.8 % Normal 1.7-12.0 [facility] [place] Comment on above: Performed By: #### C BC ####[facility] [place] Gr[address]ls[address] [place], [place] [address]DrSkylar Leal NEUT # 2.6 103/ul Normal 1.4-6.5 [facility] [place] Comment on above: Performed By: #### C BC ####[facility] [place] S[address]lcxzqvy[address] [place], [place] [address]DrSkylar Leal Neutrophils/100 WBC (Bld) 46.4 % Normal 43.0-75.0 [facility] [place] Comment on above: Performed By: #### C BC ####[facility] [place] Lxbsywmjbd[address] [place], [place] [address]DrSkylar Leal Platelet mean volume (Bld) [Entitic vol] 10.9 fL Normal 9.5-13.5 [facility] [place] Comment on above: Performed By: #### C BC ####[facility] [place] Ffldknbekk[address] [place], [place] [address]Dr. Farhat Leal PLT 159 103/ul Normal 150-450 [facility] [place] Comment on above: Performed By: #### C BC ####[facility] [place] [address]qxivj[address] [place] [address]Dr. Farhat Leal RBC 3.86 106/ul Critically low 4.70-6.10 [facility] Comment on above: Performed By: #### C BC ####[facility] [place] Xqfjnxozjo[address] [place] [address]Dr. Farhat Leal WBC 5.6 103/ul Normal 4.0-11.0 [facility] Comment on above: Performed By: #### C BC ####[facility] [place] [address]balnrza[address] [place] [address]DrSkylar Farhat Leal PROTIMEon 04-24-2022 INR Coag (PPP) [Relative time] 3.23 {INR} Normal [facility] [place] Comment on above: Performed By: #### P T ####[facility] [place] V[address]trw[address] [place], [place] [address]Dr. Farhat Leal INR GUIDELINES SEE BELOW Normal [facility] Comment on above: Result Comment: MALINA RED INR: 2.0 - 3.0 CONDITIONS NOT LISTED BELOW 2.5 - 3.5 FOR PROSTHETIC HEART VALVE REPLACEMENT 2.5 - 3.5 RECURRENT THROMBOSIS Performed By: #### P T ####[facility] [place] S[address]vskxj[address] [place], [place] [address]Dr. Farhat Leal PT Coag (PPP) [Time] 32.0 s Critically high 9.0-11.6 [facility] Comment on above: Performed By: #### P T ####[facility] [place] [address] [place], [place] [address]Dr. Farhat Leal FK506 (TACROLIMUS) WHOLE BLO ODon 04-20-2022 Tacrolimus (FK506), Blood 13.9 ng/mL Normal 2.0-20.0 [facility] Comment on above: Result Comment: Trou gh (immediately following transplant) 15.0 . Trough (steady state, 2 weeks or more after transplant): 3.0 - 8.0 . Performed by LC-MS/MS technology. Performed By: #### F [id number] ####[facility] [place] [address]drxk[address] [place] [phone]. Farhat Leal CBC AUTO DIFFon 04-17-2022 BASO # 0.0 103/ul Normal 0.0-0.1 [facility] [place] Comment on above: Performed By: #### C BC ####[facility] [place] Zprvhqqkqn[address] [place] [phone]. Madelynlorri Leal Basophils/100 WBC (Bld) 0.4 % Normal 0.2-2.0 [facility] [place] Comment on above: Performed By: #### C BC ####[facility] [place] [address]aafk[address] [place] [address]Dr. Farhat Leal EO # 0.2 103/ul Normal 0.0-0.7 [facility] [place] Comment on above: Performed By: #### C BC ####[facility] [place] O[address]qtxqing[address] [place] [address]Dr. Madelynlorri Leal Eosinophils/100 WBC (Bld) 2.8 % Normal 0.9-7.0 [facility] [place] Comment on above: Performed By: #### C BC ####[facility] [place] [address]ifbu[address] [place] [address]Dr. Farhat Leal Erythrocyte distribution width (RBC) [Ratio] 16.1 % Critically high 11.0-15.0 [facility] [place] Comment on above: Performed By: #### C BC ####[facility] [place] Eq[address]stiimmb[address] [place], [place] [address]Dr. Farhat Leal Hematocrit (Bld) [Volume fraction] 35.7 % Critically low 42.0-54.0 [facility] [place] Comment on above: Performed By: #### C BC ####[facility] [place] Dw[address]qlzfbhi[address] [place], [place] [address]Dr. Farhat Leal Hemoglobin (Bld) [Mass/Vol] 12.2 g/dL Critically low 14.0-18.0 [facility] [place] Comment on above: Performed By: #### C BC ####[facility] [place] [address]rbqd[address] [place] [phone]. Farhat Leal IG # 0.03 10e3/ul Normal 0.00-0.03 [facility] Comment on above: Performed By: #### C BC ####[facility] [place] Ofxlqnfpwy[address] [place] [address]Dr. Farhat Leal IG % 0.4 % Normal 0.0-0.5 [facility] Comment on above: Performed By: #### C BC ####[facility] [place] T[address]wuvij[address] [place] [address]Dr. Farhat Leal LYMPH # 2.4 103/ul Normal 1.2-3.8 [facility] Comment on above: Performed By: #### C BC ####[facility] [place] Hpssqqofub[address] [place] [address]Dr. Farhat Leal Lymphocytes/100 WBC (Bld) 36.1 % Normal 20.5-60.0 [facility] Comment on above: Performed By: #### C BC ####[facility] [place] Ohcwbob[address] [place], [place] [address]Dr. Farhat Leal MANUAL DIFF REQ NO Normal [facility] Comment on above: Performed By: #### C BC ####[facility] [place] Jypxoxuqxq50[address] [place] [phone]. Farhat Leal MCH (RBC) [Entitic mass] 30.3 pg Normal 25.9-34.0 [facility] Comment on above: Performed By: #### C BC ####[facility] [place] Virnewrcjv[address] [place] [address]Dr. Farhat Leal MCHC (RBC) [Mass/Vol] 34.2 g/dL Normal 29.9-35.2 [facility] [place] Comment on above: Performed By: #### C BC ####[facility] [place] K[address]wozrajap[address] [place], [place] [address]Dr. Farhat Leal MCV (RBC) [Entitic vol] 88.6 fL Normal 80.0-94.0 [facility] [place] Comment on above: Performed By: #### C BC ####[facility] [place] Mv[address]drfe[address] [place], [place] [address]Dr. Farhat Leal MONO # 0.7 103/ul Normal 0.3-0.8 [facility] Comment on above: Performed By: #### C BC ####[facility] [place] U[address]iujqcpx5[address] [place] [phone]. Farhat Leal Monocytes/100 WBC (Bld) 10.1 % Normal 1.7-12.0 [facility] Comment on above: Performed By: #### C BC ####[facility] [place] Actiodjvte[address] [place] [phone]. Farhat Leal NEUT # 3.4 103/ul Normal 1.4-6.5 [facility] Comment on above: Performed By: #### C BC ####[facility] [place] Mrbcsojzpc6419 [place] [phone]. Farhat Leal Neutrophils/100 WBC (Bld) 50.2 % Normal 43.0-75.0 [facility] Comment on above: Performed By: #### C BC ####[facility] [place] Lbzpbidvhz1216 [place] [phone]. Farhat Elvis Platelet mean volume (Bld) [Entitic vol] 11.8 fL Normal 9.5-13.5 [facility] Comment on above: Performed By: #### C BC ####[facility] [place] Cptcarlzok[address] [place] [phone]. Farhat Leal PLT 193 103/ul Normal 150-450 [facility] Comment on above: Performed By: #### C BC ####[facility] [place] Hzslyyvhgn9064 [place] [phone]. Farhat Leal RBC 4.03 106/ul Critically low 4.70-6.10 [facility] Comment on above: Performed By: #### C BC ####[facility] [place] Mqnnpcadxs7844 [place] [phone]. Farhat Leal WBC 6.8 103/ul Normal 4.0-11.0 [facility] Comment on above: Performed By: #### C BC ####[facility] [place] Agofhpoohl[address] [place] [phone] Leal PROF 14(COMP METB)on 023 Albumin [Mass/Vol] 2.9 g/dL Critically low 3.4-5.0 [facility] Comment on above: Performed By: #### C MP ####[facility] [place] Yh[address]chzysk[address] [place] [address]Dr. Farhat Elvis Albumin/Globulin [Mass ratio] 0.9 {ratio} Normal [facility] Comment on above: Performed By: #### C MP ####[facility] [place] Zu[address]qxhprb35[address] [place] [address]Dr. Farhat Elvis ALP [Catalytic activity/Vol] 67 U/L Normal 46-116 [facility] Comment on above: Performed By: #### C MP ####[facility] [place] Z[address]qtbrlbi[address] [place], [place] [address]Dr. Farhat Elvis ALT [Catalytic activity/Vol] 15 U/L Critically low 16-63 [facility] Comment on above: Performed By: #### C MP ####[facility] [place] Lqfacqfcfo[address] [place], [place] [address]Dr. Farhat Leal Anion gap [Moles/Vol] 10.8 mmol/L Normal [facility] Comment on above: Performed By: #### C MP ####[facility] [place] Qelfxwosvn[address] [place], [place] [address]Dr. Farhat Elvis AST [Catalytic activity/Vol] 23 U/L Normal 15-37 [facility] Comment on above: Performed By: #### C MP ####[facility] [place] X[address]osqe[address] [place], [place] [address]Dr. Farhat Leal Bilirubin [Mass/Vol] 0.6 mg/dL Normal 0.2-1.0 [facility] Comment on above: Performed By: #### C MP ####[facility] [place] Otlr[address]stgq[address] [place], [place] [address]Dr. Farhat Leal Calcium [Mass/Vol] 8.7 mg/dL Normal 8.5-10.1 [facility] Comment on above: Performed By: #### C MP ####[facility] [place] Eywlyfdtkg[address] [place], [place] [address]Dr. Farhat Leal Chloride [Moles/Vol] 105 mmol/L Normal 98-107 [facility] Comment on above: Performed By: #### C MP ####[facility] [place] Yaffbrjwlg[address] [place] [phone]. Farhat Leal CO2 [Moles/Vol] 29.5 mmol/L Normal 21.0-32.0 [facility] Comment on above: Performed By: #### C MP ####[facility] [place] Iesziojlcy04[address] [place] [phone]. Farhat Leal Creatinine [Mass/Vol] 1.37 mg/dL Critically high 0.70-1.30 [facility] Comment on above: Performed By: #### C MP ####[facility] [place] Obluoyrmwz75[address] [place] [phone]. Farhat Leal EGFR-AF NICARAGUAN >60 Normal >=60 [facility] Comment on above: Performed By: #### C MP ####[facility] [place] J[address]mtnspmzn[address] [place] [address]Dr. Farhat Leal EGFR-NON AF NICARAGUAN 50 mL/min/1.73m2 Critically low >=60 [facility] Comment on above: Performed By: #### C MP ####[facility] [place] Wtiqihizln[address] [place] [address]Dr. Farhat Leal Globulin (S) [Mass/Vol] 3.1 g/dL Normal [facility] Comment on above: Performed By: #### C MP ####[facility] [place] K[address]ijxpuah[address] [place] [address]Dr. Farhat Leal Glucose [Mass/Vol] 203 mg/dL Critically high 74-106 [facility] Comment on above: Performed By: #### C MP ####[facility] [place] Sheyfyszya7526 [place] [phone]. Farhat Leal Potassium [Moles/Vol] 4.3 mmol/L Normal 3.5-5.1 [facility] Comment on above: Performed By: #### C MP ####[facility] [place] Qgctxflewz[address] [place] [address]Dr. Farhat Leal Protein [Mass/Vol] 6.0 g/dL Critically low 6.4-8.2 [facility] Comment on above: Performed By: #### C MP ####[facility] [place] Ttcwrtnwao5723 [place] [phone]. Farhat Leal Sodium [Moles/Vol] 141 mmol/L Normal 136-145 [facility] Comment on above: Performed By: #### C MP ####[facility] [place] Xjuvieavoc6460 [place] [phone]. Farhat Leal Urea nitrogen [Mass/Vol] 65.0 mg/dL Critically high 7.0-18.0 [facility] Comment on above: Performed By: #### C MP ####[facility] [place] W[address]puvzhj[address] [place] [address]Dr. Farhat Leal Urea nitrogen/Creatinine [Mass ratio] 47.4 mg/mg Normal [facility] Comment on above: Performed By: #### C MP ####[facility] [place] Tdxvedysbn[address] [place] [address]Dr. Farhat Leal PROTIMEon 04-15-2022 INR Coag (PPP) [Relative time] 3.88 {INR} Normal [facility] Comment on above: Performed By: #### P T ####[facility] [place] Ujuwitlfei[address] [place] [address]Dr. Farhat Leal INR GUIDELINES SEE BELOW Normal [facility] Comment on above: Result Comment: MALINA RED INR: 2.0 - 3.0 CONDITIONS NOT LISTED BELOW 2.5 - 3.5 FOR PROSTHETIC HEART VALVE REPLACEMENT 2.5 - 3.5 RECURRENT THROMBOSIS Performed By: #### P T ####[facility] [place] [address]zpa[address] [place], [place] [address]Dr. Farhat Leal PT Coag (PPP) [Time] 38.1 s Critically high 9.0-11.6 [facility] Comment on above: Performed By: #### P T ####[facility] [place] Lars[address]xvhj[address] [place], [place] [address]Dr. Farhat Leal Glucose Glucometer (BldC) [M ass/Vol]Ordered By: Sadia Aguilar on 04-14-2022 Glucose [Mass/Vol] 162 mg/dL [facility] Comment on above: Random Glucose Refer ence Range is dependent on time and content of last meal. Glucose of more than 200 mg/dL in a nonstressed, ambulatory subject supports the diagnosis of Diabetes Mellitus. Glucose Poct Glucometerson 0 04-14-2022 Commemt1 Glu2: Cleaned Meter Normal [facility] Comment on above: Result Comment: PERF ORMED BY: [facility] [place] [address] PATHOLOGIST [employer]UBER MACHINE OPERATOR JOSE F ELLIOTT M.D. Performed By: #### G LULS #### Point of Care testing , Glucose [Mass/Vol] 162 mg/dL Normal [facility] Comment on above: Result Comment: Adger Glucose Reference Range is dependent on time and content of last meal. Glucose of more than 200 mg/dL in a nonstressed, ambulatory subject supports the diagnosis of Diabetes Mellitus. Performed By: #### G LULS #### Point of Care testing , No Panel InformationOrdered By: Sadia Aguilar on 04-14-2022 Bedside Glucose Comment Glu2: cleaned meter [facility] MAGNESIUMon 04-13-2022 Magnesium [Mass/Vol] 1.7 mg/dL Critically low 1.8-2.4 [facility] [place] Comment on above: Performed By: #### M HENRI Manzo ####[facility] [place] Ziirilcjvs[address] [place] [address]Dr. Farhat Leal PHOSPHORUSon 04-13-2022 Phosphate [Mass/Vol] 4.8 mg/dL Critically high 2.6-4.7 [facility] [place] Comment on above: Performed By: #### M HENRI Manzo ####[facility] [place] Ribszhsnnf[address] [place] [address]Dr. Farhat Leal PROTIMEon 04-13-2022 INR Coag (PPP) [Relative time] 3.16 {INR} Normal [facility] [place] Comment on above: Performed By: #### P T ####[facility] [place] Wphezuxars[address] [place] [address]Dr. Farhat Leal INR GUIDELINES SEE BELOW Normal [facility] Comment on above: Result Comment: MALINA RED INR: 2.0 - 3.0 CONDITIONS NOT LISTED BELOW 2.5 - 3.5 FOR PROSTHETIC HEART VALVE REPLACEMENT 2.5 - 3.5 RECURRENT THROMBOSIS Performed By: #### P T ####[facility] [place] Ob[address]igegb[address] [place] [address]Dr. Farhat Leal PT Coag (PPP) [Time] 31.4 s Critically high 9.0-11.6 [facility] [place] Comment on above: Performed By: #### P T ####[facility] [place] Rdcqhnxkya[address] [place] [address]Dr. Farhat Leal MAGNESIUMon 03-11-2022 Magnesium [Mass/Vol] 1.6 mg/dL Critically low 1.8-2.4 [facility] [place] Comment on above: Performed By: #### M Anais, HENRI ####[facility] [place] Xjvrivygha[address] [place] [address]Dr. Farhat Leal PHOSPHORUSon 03-11-2022 Phosphate [Mass/Vol] 5.3 mg/dL Critically high 2.6-4.7 [facility] [place] Comment on above: Performed By: #### Demetrice Manzo, HENRI ####[facility] [place] [id number] [place], [place] [address]Dr. Farhat Leal CNOVon 02-26-2022 CNOV Office Visit (HONEY ) ALEX ALMONTE ([id number]) 1945 M TRN Date Time Provider Department 02/26/22 3:00 PM HINA PETERSON During your visit today, we recorded the following information about you: Temperature Pulse Blood pressure 96.6 degrees 75/minute 88/75 Hina Peterson MD, MD 02/26/2022 4:31 PM Signed [facility] [place] [facility]PART[facility] VASCULAR SURGERY OUTPATIENT VISIT DATE [...] of unga artery of extremity with ulceration ([facility] [...] by mouth daily with lunch. Magic Cup Hendricks with lunch aspirin, enteric coated (ASPIRIN, ENTERIC COATED) 81 mg EC tablet Take 1 tablet by (more content not included)... Normal [facility] Walter PROTIMEon 02-25-2022 INR Coag (PPP) [Relative time] 1.31 {INR} Normal [facility] [place] Comment on above: Performed By: #### P T ####[facility] [place] L[address]fanaf[address] [place] [address]DrSkylar Leal INR GUIDELINES SEE BELOW Normal [facility] Comment on above: Result Comment: MALINA RED INR: 2.0 - 3.0 CONDITIONS NOT LISTED BELOW 2.5 - 3.5 FOR PROSTHETIC HEART VALVE REPLACEMENT 2.5 - 3.5 RECURRENT THROMBOSIS Performed By: #### P T ####[facility] [place] [address] [place] [address]DrSkylar Leal PT Coag (PPP) [Time] 13.7 s Critically high 9.0-11.6 [facility] Comment on above: Performed By: #### P T ####[facility] [place] Pcwdzqyzfa[address] [place] [address]DrSkylar Leal CNPNon 02-19-2022 CNPN Telephone (TXCTGL) ALEX ALMONTE ([id number]) 1945 M TRN Date Time Provider Department 02/19/22 AUGUSTA MEDRANO TXCTGL During your visit today, we recorded the following information about you: Augusta Medrano RN 02/19/2022 11:16 AM Signed Alex Almonte's nursing facility, [facility], called [...] by mouth daily with lunch. 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 DIABETES UNCOMPL ADULT-UNCONTRLLED [[id number]] 02/24/2002 KIDNEY TRANSPLANT STATUS [Z94.0] 09/07/2003 PROPHYLACTIC IMMUNOTHERAPY [Z29.8] 07/30/2006 SEMICONDUCTORS WAFER BREAKER STEROIDS [[id number]] 07/30/2006 VITAMIN D DEFICIENCY NOS [E55.9] 09/07/2008 [...] Encounter Status:Closed by AUGUSTA MEDRANO on 02/19/22 [facility] Sonya 02-18-2022 CNPN Telephone (PODCCP) ALEX ALMONTE ([id number]) 1945 M [facility] Date Time Provider Department 02/18/22 DEVON MOREIRA PODCCP During your visit today, we recorded the following information about you: Yumiko Denise 02/18/2022 3:16 PM Signed Reason for call: Mr. Almonte would like to request a sooner appointment with Dr. Peterson than 04/13/2022. Contact Name (if not the patient) Alex's nurse Home and cell number(Ask for Alex's nurse) [phone] Diagnosis 4 mo f/u wound check Best [...] by mouth daily with lunch. 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 Normal [facility] CNOVon 02-05-2022 CNOV Office Visit (TXCTGL ) MINE ALMONTEJESÚS Kate ([id number]) 1945 M TRN Date Time Provider Department 02/05/22 8:20 AM KIDNEY TX[facility] TXCTGL During your visit today, we recorded the following information about you: Temperature Pulse Blood pressure 96.7 degrees 79/minute 72/42 Asia Pike MD 02/05/2022 9:38 AM Signed [facility] [place] Transplant Follow up Portions of this note [...] snacks patient declined. Indra scale at [facility]: 166.2 lbs per patient. Bed sore on coccyx causing discomfort. Being changed regularly at SNF- reported to be smaller around but still as deep. Patient not very up to date with medications. Patient brought paperwork from [facility] with all medications being received. Patient unsure if they have been drawing labs regularly. Last Tac from 01/19: 12.9 and K 5.9. In need of current labs. Lab orders will be sent with patient and follows as below: [facility] [facility] [address] [place], [place] [address] February 05, 2022 Alex Almonte 1945 [id number] STANDARD TESTING: Diagnosis Codes: Z94.0 Kidney Transplant [...] AT YOUR LABORATORY FACILITY AND FAX TO [phone]. PLEASE CALL [phone]. Provider: Dr. Pike Current Outpatient Medications Medication [...] Take 237 (more content not included)... Normal [facility] PROTEIN CREATININE RATIOon 1 04-08-2021 Protein/Creatinine (U) [Mass ratio] 0.10 mg/mg <0.15 mg/mg [facility] PROTIMEon 02-05-2022 INR Coag (PPP) [Relative time] 2.90 {INR} Normal [facility] [place] Comment on above: Performed By: #### P T ####[facility] [place] Xx[address]vpisxw[address]228 [place] [phone] Leal INR GUIDELINES SEE BELOW Normal [facility] Comment on above: Result Comment: MALINA RED INR: 2.0 - 3.0 CONDITIONS NOT LISTED BELOW 2.5 - 3.5 FOR PROSTHETIC HEART VALVE REPLACEMENT 2.5 - 3.5 RECURRENT THROMBOSIS Performed By: #### P T ####[facility] [place] [address]wvtwdy[address] [place] [phone] Leal PT Coag (PPP) [Time] 29.2 s Critically high 9.0-11.6 [facility] [place] Comment on above: Performed By: #### P T ####[facility] [place] L[address]iisrpkm[address] [place] [phone]. Farhat Leal Prot/Creat Uron 02-05-2022 Protein/Creatinine (U) [Mass ratio] 0.10 mg/mg Normal <0.15 [facility] Comment on above: Order Comment: Speci men Type: URINE SPECIMENOrdering Facility: [facility] Address: [address] [place] [address] Result Comment: Adul t Proteinuria Categories: <0.15 mg/mg is considered normal to mildly increased 0.15 - 0.50 mg/mg is considered moderately increased >0.50 mg/mg is considered severely increased KDIGO. (2013). KDIGO 2012 Clinical Practice Guideline for the Evaluation and Management of Chronic Kidney Disease. Official Journal of the International Society of Nephrology, 3(1), 1-150. Performed By: #### 2 890-2 ####[facility] [id number] [place] [address] [place] Protein/Creatinine (U) [Mass ratio]on 02-05-2022 Creatinine (U) [Mass/Vol] 86.9 mg/dL 20.0 - 300.0 mg/dL [facility] Protein (U) [Mass/Vol] 9 mg/dL 0 - 20 mg/dL [facility] Creatinine (U) [Mass/Vol] 86.9 mg/dL Normal 20.0-300.0 [facility] Comment on above: Order Comment: Speci men Type: URINE SPECIMENOrdering Facility: [facility] Address: [address] Performed By: #### 2 890-2 ####[facility] [id number] [place] [address] [place] Protein (U) [Mass/Vol] 9 mg/dL Normal 0-20 [facility] Comment on above: Order Comment: Speci men Type: URINE SPECIMENOrdering Facility: [facility] Address: [address] Performed By: #### 2 890-2 ####[facility] [id number] [place] [address] [place] URINALYSIS, DIPSTICK ONLYon 02-05-2022 Bilirubin Ql (U) Negative Normal Negative [facility] Comment on above: Order Comment: Speci men Type: URINE SPECIMEN [facility] Address: [address] Performed By: #### U A #### [facility] CLIA [id number] [address] [place] [address] [place] Clarity (Unsp spec) Clear Normal Clear [facility] Comment on above: Order Comment: Speci men Type: URINE SPECIMEN [facility]ing [facility]: [facility] Address: [address] Performed By: #### U A #### [facility] CLIA [id number] [address] [place] [address] [place] Color (U) Yellow Normal Yellow [facility] Comment on above: Order Comment: Speci men Type: URINE SPECIMEN [facility]ing [facility] Address: [address] Performed By: #### U A #### [facility] CLIA [id number] [address] [place] [address] [place] Glucose Test strip (U) [Mass/Vol] 3+ Abnormal Trace, Negative [facility] Comment on above: Order Comment: Speci men Type: URINE SPECIMEN [facility] Address: [address] [place] [address] Performed By: #### U A #### [facility] CLIA [id number] [address] [place] [address] [place] Hemoglobin Ql (U) Negative Normal Negative, Trace [facility] Comment on above: Order Comment: Speci men Type: URINE SPECIMEN Ordering [facility]: [facility] Address: [address] [place] [address] Performed By: #### U A #### [facility] CLIA [id number] [address] [place] [address] [place] Ketones Ql (U) Trace Normal Negative, Trace [facility] Comment on above: Order Comment: Speci men Type: URINE SPECIMEN [facility] Address: [address] [place] [address] Performed By: #### U A #### [facility] CLIA [id number] [address] [place] [address] [place] Leukocyte esterase Test strip Ql (U) Negative Normal Negative, 25 Loraine/mL [facility] Comment on above: Order Comment: Speci men Type: URINE SPECIMEN [facility] Address: [address] [place] [address] Performed By: #### U A #### [facility] CLIA [id number] [address] [place] [address] [place] Nitrite Ql (U) Negative Normal Negative [facility] Comment on above: Order Comment: Speci men Type: URINE SPECIMEN [facility] Address: [address] [place] [address] Performed By: #### U A #### [facility] CLIA [id number] [facility] [place] [address] [place] pH (U) 5.5 [pH] Normal 5.0-8.0 [facility] Comment on above: Order Comment: Speci men Type: URINE SPECIMEN [facility] Address: [address] [place] [address] Performed By: #### U A #### [facility] CLIA [id number] [address] [place] [address] [place] Protein (U) [Mass/Vol] Negative Normal Trace , Negative [facility] Comment on above: Order Comment: Speci men Type: URINE SPECIMEN [facility] Address: [address] [place] [address] Performed By: #### U A #### [facility] [place] [id number] [address] [place] [address] [place] Specific gravity (U) [Rel density] 1.014 Normal 1.005-1.030 [facility] Comment on above: Order Comment: Speci men Type: URINE SPECIMEN [facility] Address: [address] [place] [address] Performed By: #### U A #### [facility] [place] [id number] [address] [place] [address] [place] Urobilinogen Ql (U) 1+ Abnormal Negative [facility] Comment on above: Order Comment: Speci men Type: URINE SPECIMEN [facility] Address: [address] [place] [address] Performed By: #### U A #### [facility] [place] [id number] [address] [place] [address] [place] Bilirubin Ql (U) Negative Negative [facility] Clarity (Unsp spec) Clear Clear [facility] Color (U) Yellow Yellow [facility] Glucose Test strip (U) [Mass/Vol] 3+ Abnormal Trace, Negative [facility] Hemoglobin Ql (U) Negative Negative, Trace [facility] Ketones Ql (U) Trace Negative, Trace [facility] Leukocyte esterase Test strip Ql (U) Negative Negative, 25 Loraine/mL [facility] Nitrite Ql (U) Negative Negative [facility] pH (U) 5.5 [pH] 5.0 - 8.0 [facility] Protein (U) [Mass/Vol] Negative Trace , Negative [facility] Specific gravity (U) [Rel density] 1.014 1.005 - 1.030 [facility] Urobilinogen Ql (U) 1+ Abnormal Negative [facility] FK506 (TACROLIMUS) WHOLE BLO ODon 01-29-2022 Tacrolimus (FK506), Blood 11.1 ng/mL Normal 2.0-20.0 [facility] Comment on above: Result Comment: Trou gh (immediately following transplant) 15.0 . Trough (steady state, 2 weeks or more after transplant): 3.0 - 8.0 . Performed by LC-MS/MS technology. Performed By: #### F K506T ####[facility] [place] [address] [place], [place] [address]Dr. Farhat Leal PHOSPHORUSon 01-26-2022 Phosphate [Mass/Vol] 4.1 mg/dL Normal 2.6-4.7 [facility] Comment on above: Performed By: #### C CARA PHOS ####[facility] [place] [address]psvye[address] [place] [address]DrSkylar Leal PROF 14(COMP METB)on 022 Albumin [Mass/Vol] 2.1 g/dL Critically low 3.4-5.0 [facility] Comment on above: Performed By: #### C CARA PHOS ####[facility] [place] Hzjzfzclph6688 [place] [address]DrSkylar Leal Albumin/Globulin [Mass ratio] 0.6 {ratio} Normal [facility] Comment on above: Performed By: #### C CARA PHOS ####[facility] [place] Yfratlzuti[address] [place] [address]Dr. Farhat Leal ALP [Catalytic activity/Vol] 89 U/L Normal 46-116 [facility] Comment on above: Performed By: #### C MP, PHOS ####[facility] [place] Vgmcxmfvcb6[address] [place] [address]Dr. Farhat Leal ALT [Catalytic activity/Vol] 27 U/L Normal 16-63 [facility] Comment on above: Performed By: #### C MP, PHOS ####[facility] [place] Bactwohqjc8419 [place] [address]Dr. Farhat Elvis Anion gap [Moles/Vol] 12.3 mmol/L Normal Th [facility] Comment on above: Performed By: #### C MP, PHOS ####[facility] [place] Ay[address] [place], [place] [address]Dr. Farhat Elvis AST [Catalytic activity/Vol] 53 U/L Critically high 15-37 [facility] Comment on above: Performed By: #### C CARA, PHOS ####[facility] [place] [address]pc[address] [place], [place] [address]Dr. Farhat Leal Bilirubin [Mass/Vol] 0.6 mg/dL Normal 0.2-1.0 [facility] Comment on above: Performed By: #### C CARA, PHOS ####[facility] [place] Zh[address]tmxovx[address] [place], [place] [address]Dr. Madelynlorri Leal Calcium [Mass/Vol] 8.0 mg/dL Critically low 8.5-10.1 [facility] Comment on above: Performed By: #### C CARA, PHOS ####[facility] [place] H[address]fq[address] [place], [place] [address]Dr. Farhat Elvis Chloride [Moles/Vol] 97 mmol/L Critically low 98-107 [facility] Comment on above: Performed By: #### C MP, PHOS ####[facility] [place] J[address] [place], [place] [address]Dr. Farhat Leal CO2 [Moles/Vol] 26.6 mmol/L Normal 21.0-32.0 [facility] Comment on above: Performed By: #### C CARA, PHOS ####[facility] [place] N[address]qs[address] [place], [place] [address]Dr. Farhat Leal Creatinine [Mass/Vol] 1.03 mg/dL Normal 0.70-1.30 [facility] Comment on above: Performed By: #### C CARA, PHOS ####[facility] [place] Ltyuqgnzqq[address] [place] [address]Dr. Farhat Leal EGFR-AF NICARAGUAN >60 Normal >=60 [facility] Comment on above: Performed By: #### C CARA, PHOS ####[facility] [place] Atpipkwkdg[address] [place] [address]Dr. Farhat Leal EGFR-NON AF NICARAGUAN >60 Normal >=60 [facility] Comment on above: Performed By: #### C CARA, PHOS ####[facility] [place] [address]crjydjj[address] [place], [place] [address]Dr. Farhat Leal Globulin (S) [Mass/Vol] 3.7 g/dL Normal [facility] Comment on above: Performed By: #### C CARA, PHOS ####[facility] [place] C[address] [place], [place] [address]Dr. Farhat Leal Glucose [Mass/Vol] 287 mg/dL Critically high 74-106 T [facility] Comment on above: Performed By: #### C CARA, PHOS ####[facility] [place] G[address] [place], [place] [address]Dr. Farhat Leal Potassium [Moles/Vol] 3.9 mmol/L Normal 3.5-5.1 [facility] Comment on above: Performed By: #### C CARA, PHOS ####[facility] [place] V[address]vrri[address] [place], [place] [address]Dr. Farhat Leal Protein [Mass/Vol] 5.8 g/dL Critically low 6.4-8.2 Th [facility] Comment on above: Performed By: #### C CARA, PHOS ####[facility] [place] Sepmq[address]cfk[address] [place], [place] [address]Dr. Farhat Leal Sodium [Moles/Vol] 132 mmol/L Critically low 136-145 Th [facility] Comment on above: Performed By: #### C CARA, PHOS ####[facility] [place] Ranaypmmbh[address] [place] [phone]. Farhat Leal Urea nitrogen [Mass/Vol] 23.0 mg/dL Critically high 7.0-18.0 [facility] [place] Comment on above: Performed By: #### C HENRI MARROQUIN ####[facility] [place] Swskzlnccq[address]96 [place] [phone]. Farhat Leal Urea nitrogen/Creatinine [Mass ratio] 22.3 mg/mg Normal [facility] Comment on above: Performed By: #### C HENRI MARROQUIN ####[facility] [place] [address]muzvv[address] [place], [place] [address]Dr. Farhat Leal FK506 (TACROLIMUS) WHOLE BLO ODon 01-21-2022 Tacrolimus (FK506), Blood 12.2 ng/mL Normal 2.0-20.0 [facility] Comment on above: Result Comment: Trou gh (immediately following transplant) 15.0 . Trough (steady state, 2 weeks or more after transplant): 3.0 - 8.0 . Performed by LC-MS/MS technology. Performed By: #### F K506T ####[facility] [place] [address]uginc[address] [place], [place] [address]Dr. Farhat Leal ACID FAST SMEAR AND CXon Acid Fast Culture Negative Normal [facility] Comment on above: Result Comment: No a abdiel fast bacilli isolated after 6 weeks. Performed By: #### A FB ####[facility] [place] X[address]ccwwiqv43[address] [place] [address]Dr. Farhat Leal Acid Fast Smear Negative Normal [facility] Comment on above: Performed By: #### A FB ####[facility] [place] [address]xu[address] [place], [place] [address]Dr. Farhat Leal [employer] Specimen Processing Tissue Grinding Normal [facility] Comment on above: Performed By: #### A FB ####[facility] [place] [address] [place], [place] [address]Dr. Farhat Hassan [facility] ALEX ALMOTNE ([id number]) 1945 M TRN Date Time Provider Department 01/20/22 VAN OLIVAREZ During your visit today, we recorded the following information about you: Van Olivarez APRN.CNP 01/20/2022 1:14 PM Signed Labs noted from yesterday. Pt is currently residing at [facility], I spoke with the Nurse, [...] by mouth daily with lunch. 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 DIABETES UNCOMPL ADULT-UNCONTRLLED [[id number]] 02/24/2002 KIDNEY TRANSPLANT STATUS [Z94.0] 09/07/2003 PROPHYLACTIC IMMUNOTHERAPY [Z29.8] 07/30/2006 SEMICONDUCTORS WAFER BREAKER STEROIDS [RCP1368] 07/30/2006 VITAMIN D DEFICIENCY NOS [E55.9] 09/07/2008 [...] Status:Closed by VAN OLIVAREZ on 01/20/22 Normal [facility] PROF 14(COMP METB)on 022 Albumin [Mass/Vol] 1.9 g/dL Critically low 3.4-5.0 Th [facility] Comment on above: Performed By: #### C MP ####[facility] [place] F[address]ozjfgcd[address] [place] [address]DrSkylar Leal Albumin/Globulin [Mass ratio] 0.5 {ratio} Normal [facility] Comment on above: Performed By: #### C MP ####[facility] [place] Gdpzgzauod27[address] [place] [address]DrSkylar Leal ALP [Catalytic activity/Vol] 78 U/L Normal 46-116 [facility] Comment on above: Performed By: #### C MP ####[facility] [place] Najomqihak[address] [place] [address]Dr. Farhat Leal ALT [Catalytic activity/Vol] 22 U/L Normal 16-63 [facility] Comment on above: Performed By: #### C MP ####[facility] [place] Pefuijssjo[address] [place] [address]Dr. Madelynlorri Elvis Anion gap [Moles/Vol] 8.0 mmol/L Normal [facility] Comment on above: Performed By: #### C MP ####[facility] [place] N[address]cdves[address] [place], [place] [address]Dr. Madelynlorri Leal AST [Catalytic activity/Vol] 92 U/L Critically high 15-37 [facility] Comment on above: Performed By: #### C MP ####[facility] [place] Vvjtuvxfmu[address] [place], [place] [address]Dr. Farhat Leal Bilirubin [Mass/Vol] 0.7 mg/dL Normal 0.2-1.0 [facility] Comment on above: Performed By: #### C MP ####[facility] [place] T[address]ygkyw[address] [place], [place] [address]Dr. Farhat Leal Calcium [Mass/Vol] 7.8 mg/dL Critically low 8.5-10.1 Th e [facility] [place] Comment on above: Performed By: #### C MP ####[facility] [place] Z[address]ukjfrvj[address] [place], [place] [address]Dr. Farhat Leal Chloride [Moles/Vol] 99 mmol/L Normal 98-107 [facility] [place] Comment on above: Performed By: #### C MP ####[facility] [place] Rq[address]qioodeu[address] [place], [place] [address]Dr. Farhat Leal CO2 [Moles/Vol] 30.9 mmol/L Normal 21.0-32.0 [facility] Comment on above: Performed By: #### C MP ####[facility] [place] Gj[address]ehqhkj[address] [place], [place] [address]Dr. Farhat Leal Creatinine [Mass/Vol] 0.95 mg/dL Normal 0.70-1.30 [facility] Comment on above: Performed By: #### C MP ####[facility] [place] Xchxe[address]up[address] [place], [place] [address]Dr. Farhat Leal EGFR-AF NICARAGUAN >60 Normal >=60 [facility] Comment on above: Performed By: #### C MP ####[facility] Sixkdhcojj[address] [place] [phone]. Farhat Leal EGFR-NON AF NICARAGUAN >60 Normal >=60 [facility] Comment on above: Performed By: #### C MP ####[facility] [place] Mdqdpwylso[address] [place] [phone]. Farhat Leal Globulin (S) [Mass/Vol] 3.9 g/dL Normal [facility] Comment on above: Performed By: #### C MP ####[facility] Wcjrqrtpmy[address] [place] [address]Dr. Farhat Leal Glucose [Mass/Vol] 124 mg/dL Critically high 74-106 T [facility] Comment on above: Performed By: #### C MP ####[facility] [place] Ivdxscsftd[address] [place], [place] [address]Dr. Farhat Leal Potassium [Moles/Vol] 5.9 mmol/L Critically high 3.5-5.1 [facility] Comment on above: Performed By: #### C MP ####[facility] [place] Duytmvcmrw[address] [place], [place] [address]Dr. Farhat Leal Protein [Mass/Vol] 5.8 g/dL Critically low 6.4-8.2 Th [facility] Comment on above: Performed By: #### C MP ####[facility] [place] Xdozazndqy[address] [place], [place] [address]Dr. Farhat Leal Sodium [Moles/Vol] 132 mmol/L Critically low 136-145 Th [facility] Comment on above: Performed By: #### C MP ####[facility] [place] Yp[address]nc[address] [place], [place] [id number]. Farhat Leal Urea nitrogen [Mass/Vol] 18.0 mg/dL Normal 7.0-18.0 [facility] Comment on above: Performed By: #### C MP ####[facility] [place] K[address]wpl[address] [place], [place] [id number]. Farhat Leal Urea nitrogen/Creatinine [Mass ratio] 18.9 mg/mg Normal [facility] Comment on above: Performed By: #### C MP ####[facility] [place] Vrsagumbiy[address] [place] [address]Dr. Farhat Leal INR (POC)on 01-12-2022 INR Coag (PPP) [Relative time] 2.6 {INR} High 0.8 - 1.2 [facility] Internal Quality Check Acceptable Cl [facility] ACID FAST SMEAR AND CXon Acid Fast Culture Negative Normal [facility] Comment on above: Result Comment: No a abdiel fast bacilli isolated after 6 weeks. Performed By: #### A FB ####[facility] [place] Vehbrsnhfu[address] [place], [place] [address]Dr. Farhat Leal Acid Fast Smear Negative Normal [facility] Comment on above: Performed By: #### A FB ####[facility] [place] Xlkdviioju[address] [place], [place] [address]Dr. Farhat Leal [employer] Specimen Processing Direct Inoculation Normal [facility] Comment on above: Performed By: #### A FB ####[facility] [place] Svxurhkcsv[address] [place], [place] [id number]. Farhat Leal ACID FAST SMEAR AND CXon Acid Fast Culture Negative Normal [facility] Comment on above: Result Comment: No a abdiel fast bacilli isolated after 6 weeks. Performed By: #### A FB ####[facility] [place] Qvlafnryop[address] [place], [place] [address]Dr. Farhat Leal Acid Fast Smear Negative Normal [facility] Comment on above: Performed By: #### A FB ####[facility] [place] Pdtklplrxg[address] [place], [place] [address]Dr. Farhat Le[employer] Specimen [employer] [facility] Comment on above: Performed By: #### A FB ####[facility] [place] Jbpizqoatp[address] [place], [place] [address]Dr. Farhat Leal FUNGAL CULTUREon 01-02-2022 Fungus (Mycology) Culture Final report Normal [facility] Comment on above: Performed By: #### C XFUN ####[facility] [place] Fvttnuoacm[address] [place], [place] [address]Dr. Farhat Leal Fungus Stain Final report Normal [facility] Comment on above: Performed By: #### C XFUN ####[facility] [place] Y[address] [place] [address]. Farhat Leal Result 1 Comment Normal [facility] Comment on above: Result Comment: ANNI/ Calcofluor preparation: no fungus observed. Performed By: #### C XFUN ####[facility] [place] Vrwowinsmi[address] [place], [place] [address]Dr. Farhat Leal Result Comment: No y east or mold isolated after 4 weeks. FK506 (TACROLIMUS) WHOLE BLO ODon 12-31-2021 Tacrolimus (FK506), Blood 7.7 ng/mL Normal 2.0-20.0 [facility] Comment on above: Result Comment: Trou gh (immediately following transplant) 15.0 . Trough (steady state, 2 weeks or more after transplant): 3.0 - 8.0 . Performed by LC-MS/MS technology. Performed By: #### F K506T ####[facility] Xqrwplqmdw[address] [place], [place] [address]Dr. Farhat Leal HEMOGRAM AND PLATELon 2021 Hematocrit (Bld) [Volume fraction] 27.1 % Critically low 42.0-54.0 [facility] Comment on above: Performed By: #### H H ####[facility] [place] Geesd[address]prc[address] [place] [address]. Farhat Leal Hemoglobin (Bld) [Mass/Vol] 8.7 g/dL Critically low 14.0-18.0 [facility] Comment on above: Performed By: #### H H ####[facility] Qprtkhwcom[address] [place], [place] [address]Dr. Farhat Leal MCH (RBC) [Entitic mass] 30.3 pg Normal 25.9-34.0 [facility] Comment on above: Performed By: #### H H ####[facility] [place] Odnilsopcy[address] [place], [place] [address]Dr. Farhat Leal MCHC (RBC) [Mass/Vol] 32.1 g/dL Normal 29.9-35.2 [facility] Comment on above: Performed By: #### H H ####[facility] [place] Gix[address]emxk[address] [place] [phone]. Farhat Leal MCV (RBC) [Entitic vol] 94.4 fL Critically high 80.0-94.0 [facility] Comment on above: Performed By: #### H H ####[facility] [place] B[address]xgqqxbg[address] [place] [phone]. Farhat Elvis PLT 355 103/ul Normal 150-450 [facility] Comment on above: Performed By: #### H H ####[facility] [place] Qejwtdjtlb75[address] [place] [phone]. Farhat Leal RBC 2.87 106/ul Critically low 4.70-6.10 [facility] Comment on above: Performed By: #### H H ####[facility] [place] Tgkiypgfli60[address] [place] [address]Dr. Farhat Leal WBC 6.0 103/ul Normal 4.0-11.0 [facility] Comment on above: Performed By: #### H H ####[facility] [place] Maccbbgymy[address] [place] [phone]. Farhat Leal PHOSPHORUSon 12-29-2021 Phosphate [Mass/Vol] 2.5 mg/dL Critically low 2.6-4.7 [facility] Comment on above: Performed By: #### P HOS, CMP ####[facility] [place] Ysamdgdtdl[address] [place] [address]DrSkylar Leal PROF 14(COMP METB)on 022 Albumin [Mass/Vol] 1.7 g/dL Critically low 3.4-5.0 [facility] Comment on above: Performed By: #### P HOS, CMP ####[facility] Greqbmldum[address] [place] [address]Dr. Farhat Leal Albumin/Globulin [Mass ratio] 0.5 {ratio} Normal [facility] Comment on above: Performed By: #### P HOS, CMP ####[facility] Ewcetzglnf39[address] [place] [address]DrSkylar Leal ALP [Catalytic activity/Vol] 78 U/L Normal 46-116 [facility] Comment on above: Performed By: #### P HOS, CMP ####[facility] Faydwgwdaj[address] [place], [place] [address]Dr. Madelynlorri Leal ALT [Catalytic activity/Vol] 12 U/L Critically low 16-63 [facility] Comment on above: Performed By: #### P HOS, CMP ####[facility] [place] Eruzqpoycx[address] [place], [place] [address]Dr. Farhat Leal Anion gap [Moles/Vol] 5.1 mmol/L Normal [facility] Comment on above: Performed By: #### P HOS, CMP ####[facility] Cbluofqxaj4[address] [place], [place] [address]Dr. Farhat Leal AST [Catalytic activity/Vol] 22 U/L Normal 15-37 [facility] Comment on above: Performed By: #### P HOS, CMP ####[facility] Scyibemdyg[address] [place], [place] [address]Dr. Farhat Leal Bilirubin [Mass/Vol] 0.6 mg/dL Normal 0.2-1.0 [facility] Comment on above: Performed By: #### P HOS, CMP ####[facility] [place] Aragczwwao[address] [place], [place] [address]Dr. Farhat Leal Calcium [Mass/Vol] 8.1 mg/dL Critically low 8.5-10.1 Th [facility] Comment on above: Performed By: #### P HOS, CMP ####[facility] Hydxosfdrk[address] [place], [place] [address]Dr. Farhat Leal Chloride [Moles/Vol] 100 mmol/L Normal 98-107 [facility] Comment on above: Performed By: #### P HOS, CMP ####[facility] [place] Hymhjymytf[address] [place], [place] [address]Dr. Farhat Leal CO2 [Moles/Vol] 34.2 mmol/L Critically high 21.0-32.0 [facility] Comment on above: Performed By: #### P HOS, CMP ####[facility] [place] Klmqzowlsm[address] [place], [place] [address]Dr. Farhat Leal Creatinine [Mass/Vol] 0.92 mg/dL Normal 0.70-1.30 [facility] Comment on above: Performed By: #### P HOS, CMP ####[facility] [place] Yinplusdhr[address] [place] [address]Dr. Farhat Elvis EGFR-AF NICARAGUAN >60 Normal >=60 [facility] Comment on above: Performed By: #### P HOS, CMP ####[facility] [place] Sryvvglugn[address] [place] [address]Dr. Farhat Elvis EGFR-NON AF NICARAGUAN >60 Normal >=60 [facility] Comment on above: Performed By: #### P HOS, CMP ####[facility] [place] Juhjtjnxid[address] [place], [place] [address]Dr. Farhat Leal Globulin (S) [Mass/Vol] 3.3 g/dL Normal [facility] Comment on above: Performed By: #### P HOS, CMP ####[facility] [place] Ovigijyjwe[address] [place], [place] [address]Dr. Farhat Leal Glucose [Mass/Vol] 116 mg/dL Critically high 74-106 [facility] Comment on above: Performed By: #### P HOS, CMP ####[facility] [place] Dlzgqubwur[address] [place], [place] [address]Dr. Farhat Leal Potassium [Moles/Vol] 3.3 mmol/L Critically low 3.5-5.1 [facility] Comment on above: Performed By: #### P HOS, CMP ####[facility] [place] Wtvmbhboxm60[address] [place], [place] [address]Dr. Farhat Leal Protein [Mass/Vol] 5.0 g/dL Critically low 6.4-8.2 Th [facility] Comment on above: Performed By: #### P HOS, CMP ####[facility] [place] Lmxkjefyjx1766[address] [place], [place] [address]Dr. Farhat Leal Sodium [Moles/Vol] 136 mmol/L Normal 136-145 [facility] Comment on above: Performed By: #### P HOS, CMP ####[facility] [place] Innwhsrhqw[address] [place], [place] [address]Dr. Farhat Leal Urea nitrogen [Mass/Vol] 14.0 mg/dL Normal 7.0-18.0 [facility] Comment on above: Performed By: #### P HOS, CMP ####[facility] [place] Kithtadsxp[address] [place], [place] [address]Dr. Farhat Leal Urea nitrogen/Creatinine [Mass ratio] 15.2 mg/mg Normal [facility] Comment on above: Performed By: #### P HOS, CMP ####[facility] [place] Y[address]mkptcgt[address] [place] [address]Dr. Farhat Leal PROTIMEon 12-29-2021 INR Coag (PPP) [Relative time] 1.26 {INR} Normal [facility] Comment on above: Performed By: #### P T ####[facility] Lzlbcqbnck[address] [place], [place] [address]Dr. Farhat Leal INR GUIDELINES SEE BELOW Normal [facility] Comment on above: Result Comment: MALINA RED INR: 2.0 - 3.0 CONDITIONS NOT LISTED BELOW 2.5 - 3.5 FOR PROSTHETIC HEART VALVE REPLACEMENT 2.5 - 3.5 RECURRENT THROMBOSIS Performed By: #### P T ####[facility] [place] Laclidhemn[address] [place], [place] [address]Dr. Farhat Leal PT Coag (PPP) [Time] 13.4 s Critically high 9.0-11.6 [facility] Comment on above: Performed By: #### P T ####[facility] Dbwfvkioko[address] [place], [place] [address]DrSkylar Lela XR MODIFIED BARIUM SWALLOWon 12-25-2021 XR MODIFIED BARIUM SWALLOW Normal [facility] FUNGAL CULTUREon 12-24-2021 Fungus (Mycology) Culture Final report Normal [facility] Comment on above: Performed By: #### C XFUN ####[facility] Otjuemtocx[address] [place], [place] [address]DrSkylar Leal Fungus Stain Final report Normal [facility] Comment on above: Performed By: #### C XFUN ####[facility] [place] Zknhplmpdp[address] [place], [place] [address]DrSkylar Leal Result 1 Comment Normal [facility] Comment on above: Result Comment: ANNI/ Calcofluor preparation: no fungus observed. Performed By: #### C XFUN ####[facility] Urxwlyjciq[address] [place], [place] [address]Dr. Farhat Leal Result Comment: No y east or mold isolated after 4 weeks. VANCOMYCIN TROUGHon 12-21-19 VANCOMYCIN TROUGH 14.4 ug/ml Normal 5.0-20.0 [facility] Comment on above: Performed By: #### V ANCT ####[facility] [place] Daxafsumcs[address] [place], [place] [address]Dr. Farhat Elvis CBC AUTO DIFFon 12-14-2021 BASO # 0.0 103/ul Normal 0.0-0.1 [facility] Comment on above: Performed By: #### C BC ####[facility] Nkwriloibd[address] [place], [place] [address]Dr. Farhat Leal Basophils/100 WBC (Bld) 0.2 % Normal 0.2-2.0 [facility] Comment on above: Performed By: #### C BC ####[facility] [place] Udkunojyas[address] [place], [place] [address]Dr. Madelynlorri Leal EO # 0.2 103/ul Normal 0.0-0.7 [facility] Comment on above: Performed By: #### C BC ####[facility] Guqzkkznmb[address] [place], [place] [address]Dr. Farhat Leal Eosinophils/100 WBC (Bld) 2.1 % Normal 0.9-7.0 [facility] Comment on above: Performed By: #### C BC ####[facility] Xxlwljqayw[address] [place], [place] [address]Dr. Madelynlorri Leal Erythrocyte distribution width (RBC) [Ratio] 18.2 % Critically high 11.0-15.0 [facility] Comment on above: Performed By: #### C BC ####[facility] [place] Jigtthnjyf[address] [place], [place] [address]Dr. Farhat Leal Hematocrit (Bld) [Volume fraction] 25.8 % Critically low 42.0-54.0 [facility] Comment on above: Performed By: #### C BC ####[facility] [place] V[address]ibiadnc[address] [place] [phone]. Farhat Leal Hemoglobin (Bld) [Mass/Vol] 8.0 g/dL Critically low 14.0-18.0 [facility] Comment on above: Performed By: #### C BC ####[facility] Cvgagwowsc[address] [place] [phone]. Farhat Leal IG # 0.08 10e3/ul Critically high 0.00-0.03 [facility] Comment on above: Performed By: #### C BC ####[facility] Njdhdudnqo0661 [place] [phone]. Farhat Leal IG % 0.7 % Critically high 0.0-0.5 [facility] Comment on above: Performed By: #### C BC ####[facility] Dysoupbtkk[address] [place] [address]Dr. Farhat Leal LYMPH # 0.9 103/ul Critically low 1.2-3.8 [facility] Comment on above: Performed By: #### C BC ####[facility] [place] Zwrhwtewqc9828 [place] [phone]. Farhat Leal Lymphocytes/100 WBC (Bld) 8.7 % Critically low 20.5-60.0 [facility] Comment on above: Performed By: #### C BC ####[facility] [place] Fhwxlpiqiu[address] [place] [address]Dr. Farhat Leal MANUAL DIFF REQ NO Normal [facility] Comment on above: Performed By: #### C BC ####[facility] [place] Btjvudsjaj024[address] [place] [phone]. Farhat Leal MCH (RBC) [Entitic mass] 30.0 pg Normal 25.9-34.0 [facility] Comment on above: Performed By: #### C BC ####[facility] Tzyypyanoe[address] [place] [phone]. Farhat Leal MCHC (RBC) [Mass/Vol] 31.0 g/dL Normal 29.9-35.2 [facility] Comment on above: Performed By: #### C BC ####[facility] Xpfaesemne[address] [place] [phone]. Farhat Leal MCV (RBC) [Entitic vol] 96.6 fL Critically high 80.0-94.0 [facility] Comment on above: Performed By: #### C BC ####[facility] [place] Wagvkkqffn[address] [place] [phone]. Farhat Leal MONO # 0.7 103/ul Normal 0.3-0.8 [facility] Comment on above: Performed By: #### C BC ####[facility] Qdhznbbiof9[address] [place] [phone]. Farhat Leal Monocytes/100 WBC (Bld) 6.7 % Normal 1.7-12.0 [facility] Comment on above: Performed By: #### C BC ####[facility] Qpaajrskol[address] [place], [place] [address]Dr. Farhat Leal NEUT # 8.8 103/ul Critically high 1.4-6.5 [facility] Comment on above: Performed By: #### C BC ####[facility] Wyuxowbypj[address] [place], [place] [address]Dr. Farhat Leal Neutrophils/100 WBC (Bld) 81.6 % Critically high 43.0-75.0 [facility] Comment on above: Performed By: #### C BC ####[facility] Xmxnmquzzm[address] [place], [place] [id number]. Farhat Leal Platelet mean volume (Bld) [Entitic vol] 10.5 fL Normal 9.5-13.5 [facility] Comment on above: Performed By: #### C BC ####[facility] Qmyekwmfds4[address] [place] [phone]. Farhat Leal PLT 285 103/ul Normal 150-450 [facility] Comment on above: Performed By: #### C BC ####[facility] Vdjjnfuuwj7402 [place] [phone]. Farhat Leal RBC 2.67 106/ul Critically low 4.70-6.10 [facility] Comment on above: Performed By: #### C BC ####[facility] [place] Gtwkehwtwo[address] [place] [address]Dr. Madelynlorri Elvis WBC 10.7 103/ul Normal 4.0-11.0 [facility] Comment on above: Performed By: #### C BC ####[facility] Sfiqpalrwy[address] [place] [address]Dr. Farhat Leal PROF CHEM 8 (BAS METB)on Anion gap [Moles/Vol] 12.4 mmol/L Normal [facility] Comment on above: Performed By: #### B MP ####[facility] Opmnfdnzix[address] [place], [place] [address]Dr. Farhat Leal Calcium [Mass/Vol] 7.8 mg/dL Critically low 8.5-10.1 [facility] Comment on above: Performed By: #### B MP ####[facility] Obnxnocvvw[address] [place], [place] [address]Dr. Farhat Leal Chloride [Moles/Vol] 102 mmol/L Normal 98-107 [facility] Comment on above: Performed By: #### B MP ####[facility] Ptacwkaaoa[address] [place], [place] [address]Dr. Farhat Leal CO2 [Moles/Vol] 28.1 mmol/L Normal 21.0-32.0 [facility] Comment on above: Performed By: #### B MP ####[facility] Pimaziiknv[address] [place], [place] [address]Dr. Farhat Leal Creatinine [Mass/Vol] 1.24 mg/dL Normal 0.70-1.30 [facility] Comment on above: Performed By: #### B MP ####[facility] Uqqsrmskqe[address] [place], [place] [address]Dr. Farhat Leal EGFR-AF NICARAGUAN >60 Normal >=60 [facility] Comment on above: Performed By: #### B MP ####[facility] Afusdjnxlb[address] [place], [place] [address]Dr. Farhat Leal EGFR-NON AF NICARAGUAN 57 mL/min/1.73m2 Critically low >=60 [facility] Comment on above: Performed By: #### B MP ####[facility] Ihwxwlsecf[address] [place] [address]Dr. Farhat Leal Glucose [Mass/Vol] 296 mg/dL Critically high 74-106 [facility] Comment on above: Performed By: #### B MP ####[facility] Vrhpppmurt[address] [place] [phone]. Farhat Leal Potassium [Moles/Vol] 3.5 mmol/L Normal 3.5-5.1 [facility] Comment on above: Performed By: #### B MP ####[facility] L[address]rzbwlig[address] [place] [address]Dr. Farhat Leal Sodium [Moles/Vol] 139 mmol/L Normal 136-145 [facility] Comment on above: Performed By: #### B MP ####[facility] Opeqaiqdiw[address] [place] [address]Dr. Farhat Leal Urea nitrogen [Mass/Vol] 27.0 mg/dL Critically high 7.0-18.0 [facility] Comment on above: Performed By: #### B MP ####[facility] Bvkwn[address] [place], [place] [address]Dr. aFrhat Leal Urea nitrogen/Creatinine [Mass ratio] 21.8 mg/mg Normal [facility] Comment on above: Performed By: #### B MP ####[facility] Senvcqjlkn05[address] [place] [address]Dr. Farhat Leal PROTIMEon 12-14-2021 INR Coag (PPP) [Relative time] 3.36 {INR} Normal [facility] Comment on above: Performed By: #### P T ####[facility] Dmutcm[address] [place], [place] [address]Dr. Farhat Leal INR GUIDELINES SEE BELOW Normal [facility] Comment on above: Result Comment: MALINA RED INR: 2.0 - 3.0 CONDITIONS NOT LISTED BELOW 2.5 - 3.5 FOR PROSTHETIC HEART VALVE REPLACEMENT 2.5 - 3.5 RECURRENT THROMBOSIS Performed By: #### P T ####[facility] Frwpolwkpi[address] [place], [place] [address]Dr. Farhat Leal PT Coag (PPP) [Time] 33.5 s Critically high 9.0-11.6 [facility] Comment on above: Performed By: #### P T ####[facility] [address] [place], [place] [address]Wf. Farhat Leal XR CHEST 1 Von 12-14-2021 XR CHEST 1 V Normal [facility] No Panel Informationon 12-01 BLANK _ [facility] Implant Date 04/22/2012 [facility] CHECKon AMS Duration (ms) 5 of 8 [facility] AMS Fallback Rate (bpm) DDIR [facility] AV Delay Adaptive Paced Minimum (ms) 300 ms [facility] AV Delay Adaptive Rate Maximum (bpm) 130 {beats}/min [facility] AV Delay Adaptive Rate Minimum (bpm) 70 {beats}/min [facility] AV Delay Adaptive Sensed Minimum (ms) 300 ms [facility] AV Delay Paced (ms) 300 ms [facility] AV Delay Sensed (ms) 300 ms [facility] Jaciel LV Pacing Polarity Unknown [facility] Jaciel LV Sensing Polarity Unknown [facility] Jaciel RA Pacing Amplitude (volts) 2.4 V [facility] Jaciel RA Pacing Polarity BI [facility] Jaciel RA Pacing Pulse Width (ms) 0.4 ms [facility] Jaciel RA Sensing Amplitude (mvolts) AUTO [facility] Jaciel RA Sensing Blanking Period (ms) 56 ms [facility] Jaciel RA Sensing Polarity BI [facility] Jaciel RA Sensing Refractory Period (ms) AUTO [facility] Jaciel RV Pacing Amplitude (volts) 3.4 V [facility] Jaciel RV Pacing Polarity BI [facility] Jaciel RV Pacing Pulse Width (ms) 0.4 ms [facility] Jaciel RV Sensing Amplitude (mvolts) AUTO [facility] Jaciel RV Sensing Blanking Period (ms) 30 ms [facility] Jaciel RV Sensing Polarity BI [facility] Jaciel RV Sensing Refractory Period (ms) 250 ms [facility] Hysteresis Rate (bpm) 60 {beats}/min [facility] Lead1 Mfg SUZETTE [facility] Lead2 Mfg SUZETTE [facility] Location RA [facility] Location RV [facility] Lower Rate (bpm) 60 {beats}/min [facility] Max Sensor Rate (bmp) 130 {beats}/min [facility] Model 290172 Monika cortes [facility] Model 105933 [facility] Model 408453 [facility] Pacemaker Dependent? NO [facility] PM-Device Mfg BIO [facility] PM-PMT Intervention ON [facility] PM-PVC Intervention ON [facility] PM-Rate Modulation Acceleration Reaction 4 s [facility] PM-Rate Modulation Deceleration 0.5 m [facility] PM-Rate Modulation Chase 23 [facility] PM-Rate Modulation Threshold Medium [facility] RA Bipolar Impedance ohms 448 ohm [facility] Rhythm AF with controlled ventricular rate. [facility] RV Bipolar Impedance ohms 390 ohm [facility] Serial Number [id number] [facility] Serial Number [id number] [facility] Serial Number [id number] [facility] Thresh RA Sensing Amplitude (mvolts) 2.4 mV [facility] Thresh RV Capture Amplitude (volts) 1.8 V [facility] Thresh RV Capture Duration (ms) 0.4 ms [facility] Thresh RV Sensing Amplitude (mvolts) 2.4 mV [facility] Tracking Rate (bpm) 160 {beats}/min [facility] BNPon 11-28-2021 Natriuretic peptide B (Bld) [Mass/Vol] 72441.0 pg/mL Critically high <=1,800.0 [facility] Comment on above: Performed By: #### C MP, BNP, CRP ####[facility] W[address] [place], [place] [address]Dr. Farhat Leal CBC AUTO DIFFon 11-28-2021 BASO # 0.0 103/ul Normal 0.0-0.1 [facility] Comment on above: Performed By: #### C BC ####[facility] Vbxxohxnpc[address] [place], [place] [address]Dr. Farhat Leal Basophils/100 WBC (Bld) 0.3 % Normal 0.2-2.0 [facility] Comment on above: Performed By: #### C BC ####[facility] V[address]pcrywmw[address] [place], [place] [address]Dr. Farhat Leal EO # 0.1 103/ul Normal 0.0-0.7 [facility] Comment on above: Performed By: #### C BC ####[facility] Qjcmlmpsdk978[address] [place] [address]Dr. Farhat Leal Eosinophils/100 WBC (Bld) 1.0 % Normal 0.9-7.0 [facility] Comment on above: Performed By: #### C BC ####[facility] Zkekqdfkbi[address] [place], [place] [address]Dr. Farhat Leal Erythrocyte distribution width (RBC) [Ratio] 14.0 % Normal 11.0-15.0 [facility] Comment on above: Performed By: #### C BC ####[facility] Jlkvton[address] [place], [place] [address]Dr. Farhat Leal Hematocrit (Bld) [Volume fraction] 27.6 % Critically low 42.0-54.0 [facility] Comment on above: Performed By: #### C BC ####[facility] Dvsddifjwn6[address] [place], [place] [address]Dr. Farhat Leal Hemoglobin (Bld) [Mass/Vol] 9.0 g/dL Critically low 14.0-18.0 [facility] Comment on above: Performed By: #### C BC ####[facility] Ssrglv[address]bk[address] [place], [place] [address]Dr. Farhat Leal IG # 0.12 10e3/ul Critically high 0.00-0.03 [facility] Comment on above: Performed By: #### C BC ####[facility] Oxzpxgwkry26[address] [place] [address]Dr. Farhat Leal IG % 1.0 % Critically high 0.0-0.5 [facility] Comment on above: Performed By: #### C BC ####[facility] Exrqpjkbvv[address] [place], [place] [address]Dr. Farhat Lael LYMPH # 1.2 103/ul Normal 1.2-3.8 [facility] Comment on above: Performed By: #### C BC ####[facility] Kyw[address]uszhp[address] [place], [place] [address]Dr. Farhat Leal Lymphocytes/100 WBC (Bld) 9.9 % Critically low 20.5-60.0 [facility] Comment on above: Performed By: #### C BC ####[facility] [address]otrbpp[address] [place] [phone]. Farhat Leal MANUAL DIFF REQ NO Normal [facility] Comment on above: Performed By: #### C BC ####[facility] Qeppyawicg1771 [place] [phone]. Farhat Leal MCH (RBC) [Entitic mass] 30.0 pg Normal 25.9-34.0 [facility] Comment on above: Performed By: #### C BC ####[facility] Gu[address] [place], [place] [address]Dr. Farhat Leal MCHC (RBC) [Mass/Vol] 32.6 g/dL Normal 29.9-35.2 [facility] Comment on above: Performed By: #### C BC ####[facility] X[address]omgaluo[address] [place] [address]Dr. Madelynlorri Leal MCV (RBC) [Entitic vol] 92.0 fL Normal 80.0-94.0 [facility] Comment on above: Performed By: #### C BC ####[facility] Uwudogdlhq75[address] [place] [address]Dr. Farhat Elvis MONO # 1.1 103/ul Critically high 0.3-0.8 [facility] Comment on above: Performed By: #### C BC ####[facility] K[address]xtourk[address] [place] [phone]. Farhat Leal Monocytes/100 WBC (Bld) 9.3 % Normal 1.7-12.0 [facility] Comment on above: Performed By: #### C BC ####[facility] Rpkteizqnw5547 [place] [phone]. Madelynlorri Leal NEUT # 9.3 103/ul Critically high 1.4-6.5 [facility] Comment on above: Performed By: #### C BC ####[facility] L[address]uyy[address] [place], [place] [phone]. Farhat Leal Neutrophils/100 WBC (Bld) 78.5 % Critically high 43.0-75.0 [facility] Comment on above: Performed By: #### C BC ####[facility] K[address]ccmowxcy[address] [place] [phone]. Farhat Leal Platelet mean volume (Bld) [Entitic vol] 9.6 fL Normal 9.5-13.5 [facility] Comment on above: Performed By: #### C BC ####[facility] Xozjrpbxkw56[address] [place] [phone]. Farhat Leal PLT 357 103/ul Normal 150-450 [facility] Comment on above: Performed By: #### C BC ####[facility] Bswebbydpq0659 [place] [phone]. Farhat Leal RBC 3.00 106/ul Critically low 4.70-6.10 [facility] Comment on above: Performed By: #### C BC ####[facility] Ltepkacpbb6579 [place] [address]Dr. Farhat Leal WBC 11.8 103/ul Critically high 4.0-11.0 [facility] Comment on above: Performed By: #### C BC ####[facility] Jnyawtzqlf6378 [place] [address]Dr. Farhat Leal CRPon 11-28-2021 CRP 20.9 mg/dL Critically high <=1.0 [facility] Comment on above: Performed By: #### C MP, BNP, CRP ####[facility] Xaqwmofptb39[address] [place] [address]Dr. Farhat Leal CULTURE OTHERon 11-28-2021 CULTURE OTHER Normal [facility] Comment on above: Performed By: #### O THCX ####[facility] Nciembcido30[address] [place] [address]Dr. Farhat Leal CULTURE OTHER Normal [facility] Comment on above: Performed By: #### O THCX ####[facility] Z[address]wvrykua[address] [place], [place] [address]Dr. Farhat Elvis PROF 14(COMP METB)on 022 Albumin [Mass/Vol] 1.4 g/dL Critically low 3.4-5.0 [facility] Comment on above: Performed By: #### C MP, BNP, CRP ####[facility] Tlqyissyih9[address] [place] [address]Dr. Farhat Leal Albumin/Globulin [Mass ratio] 0.4 {ratio} Normal [facility] Comment on above: Performed By: #### C MP, BNP, CRP ####[facility] Dzjrjnqqhw7190 [place] [address]Dr. Farhat Leal ALP [Catalytic activity/Vol] 82 U/L Normal 46-116 [facility] Comment on above: Performed By: #### C MP, BNP, CRP ####[facility] Nrookfrnda2767 [place] [address]Dr. Farhat Leal ALT [Catalytic activity/Vol] 20 U/L Normal 16-63 [facility] Comment on above: Performed By: #### C MP, BNP, CRP ####[facility] Wnsggdkvli0162 [place] [address]Dr. Farhat Leal Anion gap [Moles/Vol] 13.0 mmol/L Normal [facility] Comment on above: Performed By: #### C MP, BNP, CRP ####[facility] Rfjvibiiuq[address] [place], [place] [address]Dr. Farhat Leal AST [Catalytic activity/Vol] 33 U/L Normal 15-37 [facility] Comment on above: Performed By: #### C MP, BNP, CRP ####[facility] Cjbuleqjtq[address] [place], [place] [address]Dr. Farhat Leal Bilirubin [Mass/Vol] 0.7 mg/dL Normal 0.2-1.0 [facility] Comment on above: Performed By: #### C MP, BNP, CRP ####[facility] Efydbgifxi5417 [place] [address]Dr. Farhat Leal Calcium [Mass/Vol] 8.4 mg/dL Critically low 8.5-10.1 [facility] Comment on above: Performed By: #### C MP, BNP, CRP ####[facility] Vsktqmqmth4497 [place] [address]Dr. Farhat Leal Chloride [Moles/Vol] 100 mmol/L Normal 98-107 [facility] Comment on above: Performed By: #### C MP, BNP, CRP ####[facility] Zyujymcfqz0880 [place] [address]Dr. Farhat Leal CO2 [Moles/Vol] 23.7 mmol/L Normal 21.0-32.0 [facility] Comment on above: Performed By: #### C MP, BNP, CRP ####[facility] Tyagbfruqq8566 [place] [address]Dr. Farhat Leal Creatinine [Mass/Vol] 1.70 mg/dL Critically high 0.70-1.30 [facility] Comment on above: Performed By: #### C MP, BNP, CRP ####[facility] Atsqhxyzhn[address] [place], [place] [address]Dr. Farhat Leal EGFR-AF NICARAGUAN 48 mL/min/1.73m2 Critically low >=60 [facility] Comment on above: Performed By: #### C MP, BNP, CRP ####[facility] O[address]fqcudsb[address] [place], [place] [address]Dr. Farhat Leal EGFR-NON AF NICARAGUAN 39 mL/min/1.73m2 Critically low >=60 [facility] Comment on above: Performed By: #### C MP, BNP, CRP ####[facility] Dfphameiuw[address] [place], [place] [address]Dr. Farhat Leal Globulin (S) [Mass/Vol] 3.6 g/dL Normal [facility] Comment on above: Performed By: #### C MP, BNP, CRP ####[facility] Icizyuhbzq5200 [place] [address]Dr. Farhat Leal Glucose [Mass/Vol] 232 mg/dL Critically high 74-106 [facility] Comment on above: Performed By: #### C MP, BNP, CRP ####[facility] Vsqhthzyjk[address] [place], [place] [address]Dr. Farhat Leal Potassium [Moles/Vol] 3.7 mmol/L Normal 3.5-5.1 [facility] Comment on above: Performed By: #### C MP, BNP, CRP ####[facility] Vfaacgtmrg7154 [place] [address]Dr. Farhat Leal Protein [Mass/Vol] 5.0 g/dL Critically low 6.4-8.2 Th [facility] Comment on above: Performed By: #### C MP, BNP, CRP ####[facility] Igrdjhupsn3874 [place] [address]Dr. Farhat Leal Sodium [Moles/Vol] 133 mmol/L Critically low 136-145 [facility] Comment on above: Performed By: #### C MP, BNP, CRP ####[facility] Cyuhxdidio1668 [place] [address]Dr. Farhat Leal Urea nitrogen [Mass/Vol] 52.0 mg/dL Critically high 7.0-18.0 [facility] Comment on above: Performed By: #### C MP, BNP, CRP ####[facility] Qawjfiquxt[address] [place], [place] [address]Dr. Farhat Leal Urea nitrogen/Creatinine [Mass ratio] 30.6 mg/mg Normal [facility] Comment on above: Performed By: #### C MP, BNP, CRP ####[facility] Jyzohlknmb6[address] [place], [place] [address]Dr. Farhat Leal PROTIMEon 11-28-2021 INR Coag (PPP) [Relative time] 1.29 {INR} Normal [facility] Comment on above: Performed By: #### P T ####[facility] Njofzymvqf[address] [place], [place] [address]Dr. Farhat eLal INR GUIDELINES SEE BELOW Normal [facility] Comment on above: Result Comment: MALINA RED INR: 2.0 - 3.0 CONDITIONS NOT LISTED BELOW 2.5 - 3.5 FOR PROSTHETIC HEART VALVE REPLACEMENT 2.5 - 3.5 RECURRENT THROMBOSIS Performed By: #### P T ####[facility] [address]qdskijdxs[address] [place], [place] [address]Dr. Farhat Leal PT Coag (PPP) [Time] 13.7 s Critically high 9.0-11.6 [facility] Comment on above: Performed By: #### P T ####[facility] F[address]kybykngb[address] [place], [place] [phone]. Farhat Leal SED RATE WESTERGRENon 2021 SED RATE 77 mm/hr Critically high <=20 [facility] Comment on above: Performed By: #### S EDR ####[facility] Leifddhbcy[address] [place], [place] [address]Dr. Farhat Leal XR CHEST 2 Von 11-28-2021 XR CHEST 2 V Normal [facility] BNPon 11-27-2021 Natriuretic peptide B (Bld) [Mass/Vol] 62589.0 pg/mL Critically high <=1,800.0 [facility] Comment on above: Performed By: #### B HEAD CHARRER, CMP, CRP ####[facility] Becjfihpxl[address] [place], [place] [address]Dr. Farhat Leal CBC AUTO DIFFon 11-27-2021 BASO # 0.0 103/ul Normal 0.0-0.1 [facility] Comment on above: Performed By: #### C BC ####[facility] Ekjmratxrq[address] [place], [place] [address]Dr. Farhat Leal Basophils/100 WBC (Bld) 0.2 % Normal 0.2-2.0 [facility] Comment on above: Performed By: #### C BC ####[facility] B[address]ttv[address] [place], [place] [address]Dr. Farhat Leal EO # 0.2 103/ul Normal 0.0-0.7 [facility] Comment on above: Performed By: #### C BC ####[facility] Iseq[address]rqum[address] [place], [place] [address]Dr. Farhat Leal Eosinophils/100 WBC (Bld) 1.9 % Normal 0.9-7.0 [facility] Comment on above: Performed By: #### C BC ####[facility] Qcdhsnfvgm[address] [place], [place] [address]Dr. Farhat Leal Erythrocyte distribution width (RBC) [Ratio] 13.9 % Normal 11.0-15.0 [facility] Comment on above: Performed By: #### C BC ####[facility] [address]ot[address]gce[address] [place], [place] [address]Dr. Farhat Leal Hematocrit (Bld) [Volume fraction] 28.7 % Critically low 42.0-54.0 [facility] Comment on above: Performed By: #### C BC ####[facility] Doqmkntmmz61[address] [place] [address]Dr. Madelynlorri Leal Hemoglobin (Bld) [Mass/Vol] 9.3 g/dL Critically low 14.0-18.0 [facility] Comment on above: Performed By: #### C BC ####[facility] Aeqcigwfim7796 [place] [address]Dr. Farhat Leal IG # 0.14 10e3/ul Critically high 0.00-0.03 [facility] Comment on above: Performed By: #### C BC ####[facility] Ppmqchyiyd9822 [place] [address]Dr. Farhat Leal IG % 1.2 % Critically high 0.0-0.5 [facility] Comment on above: Performed By: #### C BC ####[facility] Cvebidqcyu2852 [place] [address]DrSkylar Leal LYMPH # 1.1 103/ul Critically low 1.2-3.8 [facility] Comment on above: Performed By: #### C BC ####[facility] Vahtzrrswo5854 [place] [address]DrSkylar Leal Lymphocytes/100 WBC (Bld) 9.4 % Critically low 20.5-60.0 [facility] Comment on above: Performed By: #### C BC ####[facility] Zkhdjyiymi8279 [place] [address]DrSkylar Leal MANUAL DIFF REQ NO Normal [facility] Comment on above: Performed By: #### C BC ####[facility] Szkyvlysnq6759 [place] [address]DrSkylar Leal MCH (RBC) [Entitic mass] 29.7 pg Normal 25.9-34.0 [facility] Comment on above: Performed By: #### C BC ####[facility] Dbnsiidgxm9671 [place] [address]Dr. Farhat Leal MCHC (RBC) [Mass/Vol] 32.4 g/dL Normal 29.9-35.2 [facility] Comment on above: Performed By: #### C BC ####[facility] Cqmibbisvb5749 [place] [phone]. Farhat Leal MCV (RBC) [Entitic vol] 91.7 fL Normal 80.0-94.0 [facility] Comment on above: Performed By: #### C BC ####[facility] Ssseealqto4522 [place] [phone]. Farhat Leal MONO # 1.1 103/ul Critically high 0.3-0.8 [facility] Comment on above: Performed By: #### C BC ####[facility] R[address]pj[address]hmr[address] [place] [address]Dr. Farhat Elvis Monocytes/100 WBC (Bld) 9.7 % Normal 1.7-12.0 The [facility] Comment on above: Performed By: #### C BC ####[facility] [place] Jbfeyktggo[address] [place] [address]Dr. Farhat Leal NEUT # 9.2 103/ul Critically high 1.4-6.5 The [facility] Comment on above: Performed By: #### C BC ####[facility] [place] Ejvpuzvodd[address] [place] [phone]. Farhat Leal Neutrophils/100 WBC (Bld) 77.6 % Critically high 43.0-75.0 The [facility] [place] Comment on above: Performed By: #### C BC ####[facility] Hvfxpuhjes89[address] [place] [phone]. Farhat Leal Platelet mean volume (Bld) [Entitic vol] 9.5 fL Normal 9.5-13.5 The [facility] Comment on above: Performed By: #### C BC ####[facility] Eapcdhskgw47[address] [place] [phone]. Farhat Elvis PLT 375 103/ul Normal 150-450 The [facility] Comment on above: Performed By: #### C BC ####[facility] Bxffgxoatr6311 [place] [phone]. Farhat Leal RBC 3.13 106/ul Critically low 4.70-6.10 [facility] Comment on above: Performed By: #### C BC ####[facility] [place] Odpwdrnalx5514 [place] [phone]. Farhat Leal WBC 11.8 103/ul Critically high 4.0-11.0 [facility] Comment on above: Performed By: #### C BC ####[facility] [place] Jirsspwtmx43[address] [place] [phone]. Farhat Leal CRPon 11-27-2021 CRP 24.5 mg/dL Critically high <=1.0 [facility] Comment on above: Performed By: #### B HEAD CHARRER, CMP, CRP ####[facility] Zgevlnnbvr[address] [place] [address]Dr. Farhat Leal CULTURE OTHERon 11-27-2021 CULTURE OTHER Normal [facility] Comment on above: Performed By: #### O THCX ####[facility] Xhcsaydogn[address] [place] [address]Dr. Farhat Leal CULTURE OTHER Normal [facility] Comment on above: Performed By: #### O THCX ####[facility] Lbdqrtwnpd13[address] [place] [address]Dr. Farhat Leal CULTURE WOUNDon 11-27-2021 CULTURE WOUND Normal [facility] Comment on above: Performed By: #### W OUNDCX ####[facility] Prpncdqhcn2[address] [place] [address]Dr. Farhat Leal POINT OF CARE GLUCOSEon 11-15 Glucose [Mass/Vol] 147 mg/dL Critically high 74-106 [facility] Comment on above: Performed By: #### P OCGLUC ####[facility] Mxuuwuardz[address] [place], [place] [address]Dr. Farhat Leal PROF 14(COMP METB)on 022 Albumin [Mass/Vol] 1.4 g/dL Critically low 3.4-5.0 [facility] Comment on above: Performed By: #### B HEAD CHARRER, CMP, CRP ####[facility] Tzncndosrc[address] [place] [address]Dr. Farhat Leal Albumin/Globulin [Mass ratio] 0.4 {ratio} Normal [facility] Comment on above: Performed By: #### B HEAD CHARRER, CMP, CRP ####[facility] Wtsjqumawe70[address] [place] [address]Dr. Farhat Leal ALP [Catalytic activity/Vol] 82 U/L Normal 46-116 [facility] Comment on above: Performed By: #### B HEAD CHARRER, CMP, CRP ####[facility] Hxhwtwyknk[address] [place] [address]Dr. Farhat Leal ALT [Catalytic activity/Vol] 22 U/L Normal 16-63 [facility] Comment on above: Performed By: #### B HEAD CHARRER, CMP, CRP ####[facility] Sipobdkggb[address] [place], [place] [address]Dr. Farhat Leal Anion gap [Moles/Vol] 14.2 mmol/L Normal [facility] Comment on above: Performed By: #### B HEAD CHARRER, CMP, CRP ####[facility] [place] Xjijmhsceq[address] [place], [place] [address]Dr. Farhat Leal AST [Catalytic activity/Vol] 35 U/L Normal 15-37 [facility] Comment on above: Performed By: #### B HEAD CHARRER, CMP, CRP ####[facility] Sjvothbbfl[address] [place], [place] [address]Dr. Farhat Leal Bilirubin [Mass/Vol] 0.7 mg/dL Normal 0.2-1.0 [facility] Comment on above: Performed By: #### B HEAD CHARRER, CMP, CRP ####[facility] Ectgniowxi[address] [place], [place] [address]Dr. Farhat Leal Calcium [Mass/Vol] 8.2 mg/dL Critically low 8.5-10.1 [facility] Comment on above: Performed By: #### B HEAD CHARRER, CMP, CRP ####[facility] [place] Nbvuaoqjpq[address] [place], [place] [address]Dr. Farhat Leal Chloride [Moles/Vol] 99 mmol/L Normal 98-107 [facility] Comment on above: Performed By: #### B HEAD CHARRER, CMP, CRP ####[facility] Zruslnuwbz[address] [place] [address]Dr. Farhat Leal CO2 [Moles/Vol] 22.6 mmol/L Normal 21.0-32.0 [facility] Comment on above: Performed By: #### B HEAD CHARRER, CMP, CRP ####[facility] Qqahnmpkje99[address] [place] [address]Dr. Farhat Leal Creatinine [Mass/Vol] 1.73 mg/dL Critically high 0.70-1.30 [facility] Comment on above: Performed By: #### B HEAD CHARRER, CMP, CRP ####[facility] Sawfcpzlxp[address] [place], [place] [address]Dr. Farhat Leal EGFR-AF NICARAGUAN 47 mL/min/1.73m2 Critically low >=60 [facility] Comment on above: Performed By: #### B HEAD CHARRER, CMP, CRP ####[facility] Hxypgesvuj[address] [place], [place] [address]Dr. Farhat Leal EGFR-NON AF NICARAGUAN 38 mL/min/1.73m2 Critically low >=60 The [facility] [place] Comment on above: Performed By: #### B HEAD CHARRER, CMP, CRP ####[facility] Gvmawpgqer[address] [place], [place] [address]Dr. Farhat Leal Globulin (S) [Mass/Vol] 3.7 g/dL Normal [facility] Comment on above: Performed By: #### B HEAD CHARRER, CMP, CRP ####[facility] Pdyemqswkj[address] [place] [address]Dr. Farhat Leal Glucose [Mass/Vol] 220 mg/dL Critically high 74-106 [facility] Comment on above: Performed By: #### B HEAD CHARRER, CMP, CRP ####[facility] Zkvmqwrwmd[address] [place], [place] [address]Dr. Farhat Leal Potassium [Moles/Vol] 3.8 mmol/L Normal 3.5-5.1 [facility] Comment on above: Performed By: #### B HEAD CHARRER, CMP, CRP ####[facility] Zqkvubfvzw5[address] [place] [address]Dr. Farhat Leal Protein [Mass/Vol] 5.1 g/dL Critically low 6.4-8.2 Th [facility] Comment on above: Performed By: #### B HEAD CHARRER, CMP, CRP ####[facility] Qbzonrytzp8436 [place] [address]Dr. Farhat Leal Sodium [Moles/Vol] 132 mmol/L Critically low 136-145 Th [facility] Comment on above: Performed By: #### B HEAD CHARRER, CMP, CRP ####[facility] Yytqvpalut24[address] [place] [address]Dr. Farhat Leal Urea nitrogen [Mass/Vol] 49.0 mg/dL Critically high 7.0-18.0 [facility] Comment on above: Performed By: #### B HEAD CHARRER, CMP, CRP ####[facility] Osgzcyzken[address] [place], [place] [address]Dr. Farhat Leal Urea nitrogen/Creatinine [Mass ratio] 28.3 mg/mg Normal [facility] Comment on above: Performed By: #### B HEAD CHARRER, CMP, CRP ####[facility] Gfhfbekdja[address] [place] [address]Dr. Farhat Leal PROTIMEon 11-27-2021 INR Coag (PPP) [Relative time] 1.25 {INR} Normal [facility] Comment on above: Performed By: #### P T ####[facility] Orlogfkuob[address] [place], [place] [address]Dr. Farhat Leal INR GUIDELINES SEE BELOW Normal [facility] Comment on above: Result Comment: MALINA RED INR: 2.0 - 3.0 CONDITIONS NOT LISTED BELOW 2.5 - 3.5 FOR PROSTHETIC HEART VALVE REPLACEMENT 2.5 - 3.5 RECURRENT THROMBOSIS Performed By: #### P T ####[facility] Yygdrsxyzu[address] [place], [place] [address]Dr. Farhat Leal PT Coag (PPP) [Time] 13.3 s Critically high 9.0-11.6 [facility] Comment on above: Performed By: #### P T ####[facility] Ahdlbhjrom[address] [place], [place] [address]Dr. Farhat Leal SED RATE WESTERGRENon 2021 SED RATE 60 mm/hr Critically high <=20 The [facility] Comment on above: Performed By: #### S EDR ####[facility] Vyggokulzz[address] [place] [address]Dr. Farhat Leal VANCOMYCIN TROUGHon 11-28-19 VANCOMYCIN TROUGH 21.2 ug/ml Critically high 5.0-20.0 Th e [facility] Comment on above: Performed By: #### V ANCT ####[facility] Oyymnhbinh4[address] [place] [address]Dr. Farhat Leal XR CHEST 1 Von 11-27-2021 XR CHEST 1 V Normal [facility] BNPon 11-26-2021 Natriuretic peptide B (Bld) [Mass/Vol] 39949.0 pg/mL Critically high <=1,800.0 The [facility] Comment on above: Performed By: #### B HEAD CHARRER, CRP, CMP ####[facility] Hgxydddamo[address] [place], [place] [address]Dr. Farhat Leal CBC AUTO DIFFon 11-26-2021 BASO # 0.0 103/ul Normal 0.0-0.1 The [facility] Comment on above: Performed By: #### C BC ####[facility] [place] Jajoaqqlpy[address] [place] [address]Dr. Farhat Leal Basophils/100 WBC (Bld) 0.2 % Normal 0.2-2.0 The [facility] [place] Comment on above: Performed By: #### C BC ####[facility] [place] Gwtnyaobxd0678 [place] [address]Dr. Farhat Leal EO # 0.0 103/ul Normal 0.0-0.7 The [facility] [place] Comment on above: Performed By: #### C BC ####[facility] [place] Irigdpelho[address] [place], [place] [address]Dr. Farhat Leal Eosinophils/100 WBC (Bld) 0.3 % Critically low 0.9-7.0 The [facility] [place] Comment on above: Performed By: #### C BC ####[facility] Xkqeuuwpmw0568 [place] [address]Dr. Farhat Leal Erythrocyte distribution width (RBC) [Ratio] 13.9 % Normal 11.0-15.0 The [facility] Comment on above: Performed By: #### C BC ####[facility] [place] Yywrwgjkgi2554 [place] [address]Dr. Farhat Leal Hematocrit (Bld) [Volume fraction] 27.3 % Critically low 42.0-54.0 The [facility] [place] Comment on above: Performed By: #### C BC ####[facility] [place] Fjfbgranqq[address] [place], [place] [address]Dr. Farhat Leal Hemoglobin (Bld) [Mass/Vol] 8.8 g/dL Critically low 14.0-18.0 [facility] Comment on above: Performed By: #### C BC ####[facility] R[address]ylpvbhg[address] [place], [place] [address]Dr. Madelynlorri Elvis IG # 0.17 10e3/ul Critically high 0.00-0.03 [facility] Comment on above: Performed By: #### C BC ####[facility] Mcffkmjtln[address] [place], [place] [address]Dr. Farhat Leal IG % 1.2 % Critically high 0.0-0.5 [facility] Comment on above: Performed By: #### C BC ####[facility] Mpgolgaidx19[address] [place], [place] [address]Dr. Farhat Leal LYMPH # 0.7 103/ul Critically low 1.2-3.8 [facility] Comment on above: Performed By: #### C BC ####[facility] [place] Yeyqqtlzja[address] [place], [place] [address]Dr. Madelynlorri Leal Lymphocytes/100 WBC (Bld) 4.8 % Critically low 20.5-60.0 The [facility] Comment on above: Performed By: #### C BC ####[facility] Iinsafkpfz6[address] [place], [place] [address]Dr. Farhat Leal MANUAL DIFF REQ NO Normal [facility] Comment on above: Performed By: #### C BC ####[facility] Tuggzljrog3826 [place] [phone]. Farhat Leal MCH (RBC) [Entitic mass] 29.9 pg Normal 25.9-34.0 The [facility] Comment on above: Performed By: #### C BC ####[facility] Uarueudrms[address] [place], [place] [address]Dr. Farhat Leal MCHC (RBC) [Mass/Vol] 32.2 g/dL Normal 29.9-35.2 The [facility] Comment on above: Performed By: #### C BC ####[facility] [address]zdr[address] [place], [place] [id number]. Farhat Leal MCV (RBC) [Entitic vol] 92.9 fL Normal 80.0-94.0 The [facility] Comment on above: Performed By: #### C BC ####[facility] [place] Lchgsnxsdg[address] [place], [place] [address]Dr. Farhat Leal MONO # 1.3 103/ul Critically high 0.3-0.8 The [facility] Comment on above: Performed By: #### C BC ####[facility] Jpqytnigcq[address] [place], [place] [address]Dr. Farhat Leal Monocytes/100 WBC (Bld) 9.6 % Normal 1.7-12.0 The [facility] [place] Comment on above: Performed By: #### C BC ####[facility] [place] R[address]se[address]dr[address] [place], [place] [id number]. Farhat Leal NEUT # 11.4 103/ul Critically high 1.4-6.5 [facility] Comment on above: Performed By: #### C BC ####[facility] Hgjgvwywuh[address] [place], [place] [id number]. Farhat Leal Neutrophils/100 WBC (Bld) 83.9 % Critically high 43.0-75.0 The [facility] [place] Comment on above: Performed By: #### C BC ####[facility] [place] Bwxpremxhr[address] [place], [place] [address]Dr. Farhat Leal Platelet mean volume (Bld) [Entitic vol] 9.6 fL Normal 9.5-13.5 The [facility] [place] Comment on above: Performed By: #### C BC ####[facility] [place] Fxmfsjiikc7204 [place] [phone]. Farhat Leal PLT 395 103/ul Normal 150-450 [facility] Comment on above: Performed By: #### C BC ####[facility] [place] Zjelncczqg7165 [place] [phone]. Farhat Leal RBC 2.94 106/ul Critically low 4.70-6.10 The [facility] Comment on above: Performed By: #### C BC ####[facility] [place] Ntebrzbysz0726 [place] [phone]. Farhat Leal WBC 13.6 103/ul Critically high 4.0-11.0 [facility] Comment on above: Performed By: #### C BC ####[facility] Utzenkhgda7174 [place] [address]Dr. Madelynlorri Leal CRPon 11-26-2021 CRP [Mass/Vol] mg/L Critically high <=1.0 [facility] Comment on above: Performed By: #### B HEAD CHARRER, CRP, CMP ####[facility] [place] Zqvhuscqxy9[address] [place] [address]Dr. Farhat Leal PROF 14(COMP METB)on 022 Albumin [Mass/Vol] 1.5 g/dL Critically low 3.4-5.0 [facility] Comment on above: Performed By: #### B HEAD CHARRER, CRP, CMP ####[facility] [place] Qyjmudpzls5245 [place] [address]Dr. Farhat Leal Albumin/Globulin [Mass ratio] 0.4 {ratio} Normal [facility] Comment on above: Performed By: #### B HEAD CHARRER, CRP, CMP ####[facility] [place] Xxrfmmjpqe3209 [place] [address]Dr. Farhat Leal ALP [Catalytic activity/Vol] 88 U/L Normal 46-116 [facility] Comment on above: Performed By: #### B HEAD CHARRER, CRP, CMP ####[facility] [place] Tdqvdmueet30[address] [place] [address]Dr. Farhat Leal ALT [Catalytic activity/Vol] 29 U/L Normal 16-63 [facility] Comment on above: Performed By: #### B HEAD CHARRER, CRP, CMP ####[facility] [place] Jlvckullqy4205 [place] [address]Dr. Farhat Leal Anion gap [Moles/Vol] 13.3 mmol/L Normal Th [facility] Comment on above: Performed By: #### B HEAD CHARRER, CRP, CMP ####[facility] F[address]ujtvwqz[address] [place], [place] [address]Dr. Farhat Leal AST [Catalytic activity/Vol] 32 U/L Normal 15-37 [facility] Comment on above: Performed By: #### B HEAD CHARRER, CRP, CMP ####[facility] L[address]myqehrmr[address] [place], [place] [address]Dr. Farhat Leal Bilirubin [Mass/Vol] 0.6 mg/dL Normal 0.2-1.0 [facility] Comment on above: Performed By: #### B HEAD CHARRER, CRP, CMP ####[facility] Hoohuwmtxk[address] [place], [place] [address]Dr. Farhat Leal Calcium [Mass/Vol] 8.0 mg/dL Critically low 8.5-10.1 [facility] Comment on above: Performed By: #### B HEAD CHARRER, CRP, CMP ####[facility] Didjvkdyoo[address] [place], [place] [address]Dr. Farhat Leal Chloride [Moles/Vol] 98 mmol/L Normal 98-107 [facility] Comment on above: Performed By: #### B HEAD CHARRER, CRP, CMP ####[facility] Yqrkatevhw[address] [place], [place] [address]Dr. Farhat Leal CO2 [Moles/Vol] 23.7 mmol/L Normal 21.0-32.0 [facility] Comment on above: Performed By: #### B HEAD CHARRER, CRP, CMP ####[facility] Sfnngdawta[address] [place], [place] [address]Dr. Farhat Leal Creatinine [Mass/Vol] 2.08 mg/dL Critically high 0.70-1.30 [facility] Comment on above: Performed By: #### B HEAD CHARRER, CRP, CMP ####[facility] Jgblahkfec9106 [place] [address]Dr. Farhat Leal EGFR-AF NICARAGUAN 38 mL/min/1.73m2 Critically low >=60 [facility] Comment on above: Performed By: #### B HEAD CHARRER, CRP, CMP ####[facility] Ocejiidgvp1903 [place] [address]Dr. Farhat Leal EGFR-NON AF NICARAGUAN 31 mL/min/1.73m2 Critically low >=60 [facility] Comment on above: Performed By: #### B HEAD CHARRER, CRP, CMP ####[facility] Ffgzqfnizl25[address] [place] [address]Dr. Farhat Lela Globulin (S) [Mass/Vol] 3.7 g/dL Normal [facility] Comment on above: Performed By: #### B HEAD CHARRER, CRP, CMP ####[facility] Gfjsktfdig[address] [place], [place] [address]Dr. Farhat Elvis Glucose [Mass/Vol] 315 mg/dL Critically high 74-106 T [facility] Comment on above: Performed By: #### B HEAD CHARRER, CRP, CMP ####[facility] Yskunuimvd[address] [place], [place] [address]Dr. Farhat Leal Potassium [Moles/Vol] 4.0 mmol/L Normal 3.5-5.1 [facility] Comment on above: Performed By: #### B HEAD CHARRER, CRP, CMP ####[facility] J[address]bkstflf[address] [place], [place] [address]Dr. Farhat Leal Protein [Mass/Vol] 5.2 g/dL Critically low 6.4-8.2 [facility] Comment on above: Performed By: #### B HEAD CHARRER, CRP, CMP ####[facility] Mjwnaoigpt[address] [place], [place] [address]Dr. Farhat Leal Sodium [Moles/Vol] 131 mmol/L Critically low 136-145 Th [facility] Comment on above: Performed By: #### B HEAD CHARRER, CRP, CMP ####[facility] Kjntoxoefc[address] [place], [place] [address]Dr. Farhat Leal Urea nitrogen [Mass/Vol] 50.0 mg/dL Critically high 7.0-18.0 [facility] Comment on above: Performed By: #### B HEAD CHARRER, CRP, CMP ####[facility] Neqljvnyjn[address] [place], [place] [address]Dr. Farhat Leal Urea nitrogen/Creatinine [Mass ratio] 24.0 mg/mg Normal [facility] Comment on above: Performed By: #### B HEAD CHARRER, CRP, CMP ####[facility] Tmxxsafivo[address] [place], [place] [address]Dr. Farhat Leal PROTIMEon 11-26-2021 INR Coag (PPP) [Relative time] 1.31 {INR} Normal [facility] Comment on above: Performed By: #### P T ####[facility] Nwditjtmpf[address] [place], [place] [address]Dr. Farhat Leal INR GUIDELINES SEE BELOW Normal [facility] Comment on above: Result Comment: MALINA RED INR: 2.0 - 3.0 CONDITIONS NOT LISTED BELOW 2.5 - 3.5 FOR PROSTHETIC HEART VALVE REPLACEMENT 2.5 - 3.5 RECURRENT THROMBOSIS Performed By: #### P T ####[facility] Xlmcsodgxx[address] [place], [place] [address]Dr. Farhat Leal PT Coag (PPP) [Time] 13.9 s Critically high 9.0-11.6 [facility] Comment on above: Performed By: #### P T ####[facility] [facility] [place] [address]bzthj[address] [place], [place] [address]Dr. Farhat Leal SED RATE WESTERGRENon 2021 SED RATE 87 mm/hr Critically high <=20 [facility] Comment on above: Performed By: #### S EDR ####[facility] [place] Rexzuccgbt[address] [place], [place] [address]Dr. Farhat Leal BNPon 11-25-2021 Natriuretic peptide B (Bld) [Mass/Vol] 79861.0 pg/mL Critically high <=1,800.0 [facility] Comment on above: Performed By: #### C MP, BNP, CRP ####[facility] [place] Q[address]guhqvgv[address] [place], [place] [address]Dr. Farhat Leal CBC AUTO DIFFon 11-25-2021 BASO # 0.0 103/ul Normal 0.0-0.1 The [facility] [place] Comment on above: Performed By: #### C BC ####[facility] [place] [address]necaqn[address] [place] [address]Dr. Farhat Leal Basophils/100 WBC (Bld) 0.4 % Normal 0.2-2.0 The [facility] [place] Comment on above: Performed By: #### C BC ####[facility] [place] Qutukaqwps[address] [place] [address]Dr. Farhat Leal EO # 0.1 103/ul Normal 0.0-0.7 The [facility] [place] Comment on above: Performed By: #### C BC ####[facility] [place] Jsjubgcwcn[address] [place], [place] [address]Dr. Farhat Leal Eosinophils/100 WBC (Bld) 1.2 % Normal 0.9-7.0 The [facility] [place] Comment on above: Performed By: #### C BC ####[facility] [place] Lw[address]ioog[address] [place], [place] [address]Dr. Farhat Leal Erythrocyte distribution width (RBC) [Ratio] 13.7 % Normal 11.0-15.0 [facility] Comment on above: Performed By: #### C BC ####[facility] [place] Awgkcpfwum[address] [place], [place] [address]Dr. Farhat Leal Hematocrit (Bld) [Volume fraction] 29.6 % Critically low 42.0-54.0 [facility] Comment on above: Performed By: #### C BC ####[facility] [place] Rtqyrngjra[address] [place], [place] [address]Dr. Farhat Leal Hemoglobin (Bld) [Mass/Vol] 9.3 g/dL Critically low 14.0-18.0 The [facility] [place] Comment on above: Performed By: #### C BC ####[facility] [place] Jkpazpoxnp[address] [place], [place] [address]Dr. Farhat Leal IG # 0.15 10e3/ul Critically high 0.00-0.03 [facility] Comment on above: Performed By: #### C BC ####[facility] [place] [address]qbwqe25[address] [place] [id number]. Farhat Leal IG % 1.4 % Critically high 0.0-0.5 The [facility] Comment on above: Performed By: #### C BC ####[facility] [place] Rrxruqwhfv[address] [place] [address]Dr. Farhat Elvis LYMPH # 0.8 103/ul Critically low 1.2-3.8 [facility] Comment on above: Performed By: #### C BC ####[facility] [place] Gfxbbtsbnq17[address] [place] [address]Dr. Farhat Elvis Lymphocytes/100 WBC (Bld) 7.3 % Critically low 20.5-60.0 The [facility] [place] Comment on above: Performed By: #### C BC ####[facility] [place] Ftrdunmyph[address] [place] [address]Dr. Farhat Leal MANUAL DIFF REQ NO Normal The [facility] Comment on above: Performed By: #### C BC ####[facility] [place] Cqtvtemhqa2901 [place] [address]Dr. Farhat Leal MCH (RBC) [Entitic mass] 29.3 pg Normal 25.9-34.0 The [facility] [place] Comment on above: Performed By: #### C BC ####[facility] [place] Aeytfs[address]oo[address] [place], [place] [address]Dr. Farhat Leal MCHC (RBC) [Mass/Vol] 31.4 g/dL Normal 29.9-35.2 The [facility] [place] Comment on above: Performed By: #### C BC ####[facility] [place] Cknyikkgnb[address] [place] [address]Dr. Farhat Elvis MCV (RBC) [Entitic vol] 93.4 fL Normal 80.0-94.0 The [facility] [place] Comment on above: Performed By: #### C BC ####[facility] [place] Nrbr[address]vgl[address] [place], [place] [address]Dr. Madelynlorri Elvis MONO # 1.3 103/ul Critically high 0.3-0.8 The [facility] Comment on above: Performed By: #### C BC ####[facility] [place] Smrnxdmkfv49[address] [place] [address]Dr. Farhat Leal Monocytes/100 WBC (Bld) 12.3 % Critically high 1.7-12.0 The [facility] [place] Comment on above: Performed By: #### C BC ####[facility] [place] Nofvfwamec[address] [place] [address]Dr. Farhat Leal NEUT # 8.4 103/ul Critically high 1.4-6.5 The [facility] Comment on above: Performed By: #### C BC ####[facility] [place] Nkzmabdrvt8071 [place] [address]Dr. Farhat Leal Neutrophils/100 WBC (Bld) 77.4 % Critically high 43.0-75.0 The [facility] [place] Comment on above: Performed By: #### C BC ####[facility] [place] Nareoqedir[address] [place], [place] [address]Dr. Farhat Leal Platelet mean volume (Bld) [Entitic vol] 9.8 fL Normal 9.5-13.5 The [facility] [place] Comment on above: Performed By: #### C BC ####[facility] [place] Pvecztf[address] [place], [place] [address]Dr. Farhat Leal PLT 390 103/ul Normal 150-450 The [facility] [place] Comment on above: Performed By: #### C BC ####[facility] [place] Th[address]wcozeg[address] [place], [place] [address]Dr. Farhat Leal RBC 3.17 106/ul Critically low 4.70-6.10 The [facility] Comment on above: Performed By: #### C BC ####[facility] [place] Itcmboetmq[address] [place], [place] [address]Dr. Farhat Leal WBC 10.9 103/ul Normal 4.0-11.0 The [facility] [place] Comment on above: Performed By: #### C BC ####[facility] [place] Ahxq[address]qekk[address] [place], [place] [address]Dr. Farhat Leal CRPon 11-25-2021 CRP 27.2 mg/dL Critically high <=1.0 The [facility] Comment on above: Performed By: #### C MP, BNP, CRP ####[facility] [place] Je[address]jqcsrn[address] [place] [address]Dr. Farhat Leal PROF 14(COMP METB)on 022 Albumin [Mass/Vol] 1.5 g/dL Critically low 3.4-5.0 [facility] Comment on above: Performed By: #### C MP, BNP, CRP ####[facility] [place] Hasjudxrmw5320 [place] [address]Dr. Farhat Leal Albumin/Globulin [Mass ratio] 0.4 {ratio} Normal [facility] Comment on above: Performed By: #### C MP, BNP, CRP ####[facility] [place] Dwxaiipuru1837 [place] [address]Dr. Farhat Leal ALP [Catalytic activity/Vol] 86 U/L Normal 46-116 [facility] Comment on above: Performed By: #### C MP, BNP, CRP ####[facility] [place] Tnxggcerwq[address] [place], [place] [address]Dr. Farhat Leal ALT [Catalytic activity/Vol] 34 U/L Normal 16-63 [facility] Comment on above: Performed By: #### C MP, BNP, CRP ####[facility] [place] Neilqmpcbn1324 [place] [address]Dr. Farhat Leal Anion gap [Moles/Vol] 17.8 mmol/L Normal [facility] Comment on above: Performed By: #### C MP, BNP, CRP ####[facility] [place] Zyezlknwui2814 [place] [address]Dr. Farhat Leal AST [Catalytic activity/Vol] 48 U/L Critically high 15-37 [facility] Comment on above: Performed By: #### C MP, BNP, CRP ####[facility] [place] Aycyuylrkc17[address] [place] [address]Dr. Farhat Leal Bilirubin [Mass/Vol] 0.8 mg/dL Normal 0.2-1.0 [facility] Comment on above: Performed By: #### C MP, BNP, CRP ####[facility] [place] Nfeshgvqkl6361 [place] [address]Dr. Farhat Leal Calcium [Mass/Vol] 8.3 mg/dL Critically low 8.5-10.1 Th e [facility] [place] Comment on above: Performed By: #### C MP, BNP, CRP ####[facility] [place] Xxcfpvncje[address] [place], [place] [address]Dr. Farhat Leal Chloride [Moles/Vol] 97 mmol/L Critically low 98-107 [facility] Comment on above: Performed By: #### C MP, BNP, CRP ####[facility] [place] [address]kwfujrjr[address] [place], [place] [address]Dr. Farhat Leal CO2 [Moles/Vol] 23.0 mmol/L Normal 21.0-32.0 [facility] Comment on above: Performed By: #### C MP, BNP, CRP ####[facility] [place] E[address]zqwonfk[address] [place], [place] [address]Dr. Farhat Leal Creatinine [Mass/Vol] 1.68 mg/dL Critically high 0.70-1.30 [facility] Comment on above: Performed By: #### C MP, BNP, CRP ####[facility] [place] Pmapsnvlom[address] [place], [place] [address]Dr. Farhat Leal EGFR-AF NICARAGUAN 48 mL/min/1.73m2 Critically low >=60 [facility] Comment on above: Performed By: #### C MP, BNP, CRP ####[facility] [place] Uhxiyldafg[address] [place], [place] [address]Dr. Farhat Leal EGFR-NON AF NICARAGUAN 40 mL/min/1.73m2 Critically low >=60 [facility] Comment on above: Performed By: #### C MP, BNP, CRP ####[facility] [place] Baqpdumfad[address] [place], [place] [address]Dr. Farhat Leal Globulin (S) [Mass/Vol] 3.9 g/dL Normal [facility] Comment on above: Performed By: #### C MP, BNP, CRP ####[facility] [place] Yfjijgjtlt[address] [place], [place] [address]Dr. Madelynlorri Elvis Glucose [Mass/Vol] 282 mg/dL Critically high 74-106 T [facility] Comment on above: Performed By: #### C MP, BNP, CRP ####[facility] [place] Fvfpwkvofg0106 [place] [address]Dr. Madelynlorri Leal Potassium [Moles/Vol] 4.8 mmol/L Normal 3.5-5.1 [facility] Comment on above: Performed By: #### C MP, BNP, CRP ####[facility] [place] Jqudfycbae5345 [place] [address]Dr. Farhat Leal Protein [Mass/Vol] 5.4 g/dL Critically low 6.4-8.2 Th [facility] Comment on above: Performed By: #### C MP, BNP, CRP ####[facility] [place] Dmqrglwrdl1923 [place] [address]Dr. Farhat Leal Sodium [Moles/Vol] 133 mmol/L Critically low 136-145 Th [facility] Comment on above: Performed By: #### C MP, BNP, CRP ####[facility] [place] Iqdzqeatoh[address] [place], [place] [address]Dr. Farhat Leal Urea nitrogen [Mass/Vol] 40.0 mg/dL Critically high 7.0-18.0 [facility] Comment on above: Performed By: #### C MP, BNP, CRP ####[facility] [place] Kdmknldiwd[address] [place], [place] [address]Dr. Farhat Leal Urea nitrogen/Creatinine [Mass ratio] 23.8 mg/mg Normal [facility] Comment on above: Performed By: #### C MP, BNP, CRP ####[facility] [place] Vymspmbjnv[address] [place], [place] [address]Dr. Farhat Leal PROTIMEon 11-25-2021 INR Coag (PPP) [Relative time] 1.48 {INR} Normal [facility] Comment on above: Performed By: #### P T ####[facility] [place] Fdeyoljztw[address] [place], [place] [address]Dr. Farhat Leal INR GUIDELINES SEE BELOW Normal [facility] Comment on above: Result Comment: MALINA RED INR: 2.0 - 3.0 CONDITIONS NOT LISTED BELOW 2.5 - 3.5 FOR PROSTHETIC HEART VALVE REPLACEMENT 2.5 - 3.5 RECURRENT THROMBOSIS Performed By: #### P T ####[facility] [place] Yuwyshqbmn[address] [place], [place] [address]Dr. Farhat Leal PT Coag (PPP) [Time] 15.6 s Critically high 9.0-11.6 The [facility] [place] Comment on above: Performed By: #### P T ####[facility] [place] Zfempzjtjv[address] [place], [place] [address]Dr. Farhat Leal SED RATE WESTERGRENon 2021 SED RATE 76 mm/hr Critically high <=20 The [facility] Comment on above: Performed By: #### S EDR ####[facility] [place] Zphwhcqbzl[address] [place], [place] [address]Dr. Madelynlorri Leal BNPon 11-24-2021 Natriuretic peptide B (Bld) [Mass/Vol] 80576.0 pg/mL Critically high <=1,800.0 The [facility] [place] Comment on above: Performed By: #### B HEAD CHARRER, CMP, CRP ####[facility] [place] Cpqeqxrdjl[address] [place], [place] [address]Dr. Farhat Leal CBC AUTO DIFFon 11-24-2021 BASO # 0.0 103/ul Normal 0.0-0.1 [facility] Comment on above: Performed By: #### C BC ####[facility] [place] Vrxanfdsjg[address] [place], [place] [address]Dr. Farhat Leal Basophils/100 WBC (Bld) 0.3 % Normal 0.2-2.0 The [facility] [place] Comment on above: Performed By: #### C BC ####[facility] [place] Pjcqrbvcar7[address] [place], [place] [address]Dr. Farhat Leal EO # 0.2 103/ul Normal 0.0-0.7 The [facility] [place] Comment on above: Performed By: #### C BC ####[facility] [place] W[address]hvliznq[address] [place], [place] [address]Dr. Farhat Leal Eosinophils/100 WBC (Bld) 1.2 % Normal 0.9-7.0 The [facility] [place] Comment on above: Performed By: #### C BC ####[facility] [place] Zojwamajgz[address] [place], [place] [address]Dr. Farhat Leal Erythrocyte distribution width (RBC) [Ratio] 13.5 % Normal 11.0-15.0 [facility] Comment on above: Performed By: #### C BC ####[facility] [place] Vlenywqajd3993 [place] [address]DrSkylar Leal Hematocrit (Bld) [Volume fraction] 31.1 % Critically low 42.0-54.0 [facility] Comment on above: Performed By: #### C BC ####[facility] [place] Zfgkvxwtpd[address] [place], [place] [address]DrSkylar Leal Hemoglobin (Bld) [Mass/Vol] 10.0 g/dL Critically low 14.0-18.0 [facility] Comment on above: Performed By: #### C BC ####[facility] [place] Fwhntfycbw[address] [place], [place] [address]DrSkylar Leal IG # 0.13 10e3/ul Critically high 0.00-0.03 [facility] Comment on above: Performed By: #### C BC ####[facility] [place] Nkksmwkvxd[address] [place], [place] [address]DrSkylar Leal IG % 1.0 % Critically high 0.0-0.5 [facility] Comment on above: Performed By: #### C BC ####[facility] [place] M[address]zalcfhx[address] [place], [place] [address]DrSkylar Leal LYMPH # 0.7 103/ul Critically low 1.2-3.8 [facility] Comment on above: Performed By: #### C BC ####[facility] [place] J[address]qhlmxa[address] [place], [place] [address]DrSkylar Leal Lymphocytes/100 WBC (Bld) 4.9 % Critically low 20.5-60.0 The [facility] [place] Comment on above: Performed By: #### C BC ####[facility] [place] C[address]hsnehyp[address] [place], [place] [address]DrSkylar Leal MANUAL DIFF REQ NO Normal The [facility] Comment on above: Performed By: #### C BC ####[facility] [place] J[address]bikukl[address] [place], [place] [address]DrSkylar Leal MCH (RBC) [Entitic mass] 29.6 pg Normal 25.9-34.0 The [facility] [place] Comment on above: Performed By: #### C BC ####[facility] [place] Aosouzuqed65[address] [place] [address]Dr. Farhat Leal MCHC (RBC) [Mass/Vol] 32.2 g/dL Normal 29.9-35.2 The [facility] [place] Comment on above: Performed By: #### C BC ####[facility] [place] Lyeqxwgjkr6081 [place] [address]Dr. Farhat Leal MCV (RBC) [Entitic vol] 92.0 fL Normal 80.0-94.0 The [facility] [place] Comment on above: Performed By: #### C BC ####[facility] [place] P[address]byaxgbe[address] [place], [place] [address]DrSkylar Leal MONO # 1.3 103/ul Critically high 0.3-0.8 The [facility] Comment on above: Performed By: #### C BC ####[facility] [place] Ndvvcrcchu[address] [place], [place] [address]Dr. Farhat Leal Monocytes/100 WBC (Bld) 9.6 % Normal 1.7-12.0 The [facility] [place] Comment on above: Performed By: #### C BC ####[facility] [place] Dbwkdmrfwz[address] [place], [place] [address]DrSkylar Leal NEUT # 11.2 103/ul Critically high 1.4-6.5 The [facility] Comment on above: Performed By: #### C BC ####[facility] [place] Iskieknjnw[address] [place], [place] [address]Dr. Farhat Leal Neutrophils/100 WBC (Bld) 83.0 % Critically high 43.0-75.0 The [facility] [place] Comment on above: Performed By: #### C BC ####[facility] [place] Wvis[address]ibqs[address] [place], [place] [address]DrSkylar Leal Platelet mean volume (Bld) [Entitic vol] 9.5 fL Normal 9.5-13.5 The [facility] [place] Comment on above: Performed By: #### C BC ####[facility] [place] [address] [place], [place] [id number]. Farhat Leal PLT 395 103/ul Normal 150-450 The [facility] [place] Comment on above: Performed By: #### C BC ####[facility] [place] Pletratitb8515 [place] [id number]. Farhat Leal RBC 3.38 106/ul Critically low 4.70-6.10 The [facility] Comment on above: Performed By: #### C BC ####[facility] [place] Ombpjdfwni9186 [place] [phone]. Farhat Leal WBC 13.4 103/ul Critically high 4.0-11.0 [facility] Comment on above: Performed By: #### C BC ####[facility] [place] Krvpjiurch8526 [place] [address]Dr. Farhat Leal CRPon 11-24-2021 CRP 27.8 mg/dL Critically high <=1.0 The [facility] Comment on above: Performed By: #### B HEAD CHARRER, CMP, CRP ####[facility] [place] Olrqggcirk6678 [place] [phone]. Farhat Leal CULTURE ANAEROBICon 11-25-19 22 CULTURE ANAEROBIC Culture Observations : NO GROWTH OF ANAEROBES AT 72 HOURS. [facility] Comment on above: Performed By: #### A NACX ####[facility] [place] Fjlzkemcvw8676 [place] [phone]. Farhat Leal CULTURE ANAEROBIC Culture Observations : NO GROWTH OF ANAEROBES AT 72 HOURS. [facility] Comment on above: Performed By: #### A NACX ####[facility] [place] Vpecixuqks7179 [place] [phone]. Farhat Leal CULTURE ANAEROBIC Culture Observations : No growth of anaerobes at 72 hours. [facility] Comment on above: Performed By: #### A NACX ####[facility] [place] Buplodkwdp1348 [place] [phone]. Farhat Leal CULTURE ANAEROBIC Culture Observations : No growth of anaerobes at 72 hours. [facility] Comment on above: Performed By: #### A NACX ####[facility] [place] R[address] [place], [place] [id number]. Farhat Leal CULTURE URINEon 11-24-2021 CULTURE URINE Culture Observations : NO GROWTH. Normal The [facility] [place] Comment on above: Performed By: #### U RCX ####[facility] [place] Kmttuhfalt[address] [place], [place] [address]Dr. Madelynlorri Leal ECHOCARDIO M/2D COMPLETEon 1 ECHOCARDIO M/2D COMPLETE Normal The [facility] [place] ER URINE PROFILEon Bilirubin Ql (U) Negative Normal NEGATIVE The [facility] Comment on above: Performed By: #### E RUR ####[facility] [place] Yxsfyayqts[address] [place], [place] [address]Dr. Farhat Leal Clarity (U) CLEAR Normal CLEAR The [facility] [place] Comment on above: Performed By: #### E RUR ####[facility] [place] Oinrddhsgr[address] [place], [place] [address]Dr. Farhat Leal Color (U) YELLOW Normal YELLOW The [facility] [place] Comment on above: Performed By: #### E RUR ####[facility] [place] Nmuwlcjeoz[address] [place], [place] [address]Dr. Farhat Leal ERUAHD A micrscopic examination will be performed if indicated. Normal The [facility] [place] Comment on above: Performed By: #### E RUR ####[facility] [place] L[address]akafoov[address] [place], [place] [address]Dr. Farhat Leal Glucose Ql (U) Negative Normal NEGATIVE [facility] Comment on above: Performed By: #### E RUR ####[facility] [place] Wreqcqkugz[address] [place], [place] [address]Dr. Madelynlorri Elvis Hemoglobin Ql (U) Negative Normal NEGATIVE [facility] Comment on above: Performed By: #### E RUR ####[facility] Xasfsohuke[address] [place], [place] [address]Dr. Farhat Leal Ketones Ql (U) TRACE Abnormal NEGATIVE [facility] Comment on above: Performed By: #### E RUR ####[facility] [place] Gygiuagbqz[address] [place], [place] [address]Dr. Farhat Leal LEUKOCYTES Negative Normal NEGATIVE The [facility] [place] Comment on above: Performed By: #### E RUR ####[facility] Slgowxruns[address] [place] [address]Dr. Farhat Leal Nitrite Ql (U) Negative Normal NEGATIVE [facility] Comment on above: Performed By: #### E RUR ####[facility] [place] Yunlqvvxes34[address] [place] [address]Dr. Farhat Leal pH (U) 5.5 [pH] Normal 5-9 The [facility] [place] Comment on above: Performed By: #### E RUR ####[facility] [place] Yxmlwefgne5[address] [place], [place] [address]Dr. Farhat Leal SPEC GRAVITY 1.015 Normal 1.005-<=1.02 5 [facility] Comment on above: Performed By: #### E RUR ####[facility] [place] Igbgirrrkv8[address] [place], [place] [address]Dr. Farhat Leal UA PROTEIN Negative Normal NEGATIVE/ TRACE The [facility] [place] Comment on above: Performed By: #### E RUR ####[facility] [place] Qwgpvioxjo3[address] [place], [place] [address]Dr. Farhat Leal UR MICRO IND NOT INDICATED Normal The [facility] Comment on above: Performed By: #### E RUR ####[facility] [place] Yfinuxccsd[address] [place], [place] [address]Dr. Farhat Leal Urobilinogen Qn (U) 0.2 {Boyd'U}/dL Normal 0.2 - 1. 0 [facility] Comment on above: Performed By: #### E RUR ####[facility] [place] Expokdnhze[address] [place], [place] [address]Dr. Farhat Leal GRAM STAINon 11-24-2021 DIPHTHEROIDS Normal The [facility] [place] Comment on above: Performed By: #### G STAIN ####[facility] [place] Euqnhrwssb[address] [place], [place] [address]Dr. Farhat Leal EPITHELIALS Normal The [facility] [place] Comment on above: Performed By: #### G STAIN ####[facility] [place] Rlezexuvhg[address] [place], [place] [address]Dr. Farhat Leal FUNGAL ELEMENTS Normal The [facility] Comment on above: Performed By: #### G STAIN ####[facility] [place] Mncbwwzygy[address] [place] [address]Dr. Farhat Leal GRAM NEG BACILLI Normal [facility] Comment on above: Performed By: #### G STAIN ####[facility] [place] Pzmskpukmj3406 [place] [address]Dr. Farhat Leal GRAM NEG DIPPLOCOCCI Normal The [facility] [place] Comment on above: Performed By: #### G STAIN ####[facility] [place] Yykhtmlloq3274 [place] [address]Dr. Farhat Leal GRAM POS BACILLI Normal [facility] Comment on above: Performed By: #### G STAIN ####[facility] [place] Gectfoqmjf[address] [place], [place] [address]Dr. Farhat Leal GRAM POSITIVE COCCI FEW Normal The [facility] Comment on above: Performed By: #### G STAIN ####[facility] [place] Nzwjocycqh[address] [place], [place] [address]Dr. Farhat Leal GRAM STAIN SOURCE RT ACHILLES TENDON Normal The [facility] [place] Comment on above: Performed By: #### G STAIN ####[facility] [place] Nueghlmzhg[address] [place] [address]Dr. Farhat Leal GS_DIPTH Normal The [facility] [place] Comment on above: Performed By: #### G STAIN ####[facility] [place] Rjqnkpebor8096 [place] [address]Dr. Farhat Leal WBC RARE Normal The [facility] [place] Comment on above: Performed By: #### G STAIN ####[facility] [place] Zomtiorhsp[address] [place] [address]Dr. Farhat Leal COMMENTS NO ORGANISMS OBSERVED Normal The [facility] [place] Comment on above: Performed By: #### G STAIN ####[facility] [place] Ggyrtaadre[address] [place] [address]Dr. Farhat Leal DIPHTHEROIDS Normal The [facility] [place] Comment on above: Performed By: #### G STAIN ####[facility] [place] Nereexryrg7[address] [place] [address]Dr. Farhat Leal EPITHELIALS Normal The [facility] [place] Comment on above: Performed By: #### G STAIN ####[facility] [place] Afveiswmgy4091 [place] [phone]. Farhat Leal FUNGAL ELEMENTS Normal The [facility] Comment on above: Performed By: #### G STAIN ####[facility] [place] Rjlixtvwga2745 [place] [address]Dr. Farhat Leal GRAM NEG BACILLI Normal [facility] Comment on above: Performed By: #### G STAIN ####[facility] [place] Bncnrutfew8243 [place] [address]Dr. Farhat Leal GRAM NEG DIPPLOCOCCI Normal The [facility] [place] Comment on above: Performed By: #### G STAIN ####[facility] [place] Bhlpfhlcny92[address] [place] [address]Dr. Farhat Leal GRAM POS BACILLI Normal [facility] Comment on above: Performed By: #### G STAIN ####[facility] [place] Yanzsmpyzc7107 [place] [address]Dr. Farhat Leal GRAM POSITIVE COCCI Normal The [facility] Comment on above: Performed By: #### G STAIN ####[facility] [place] Dzbcxqkhnf9148 [place] [address]Dr. Farhat Leal GRAM STAIN SOURCE RT CALCANEOUS Normal The [facility] [place] Comment on above: Performed By: #### G STAIN ####[facility] [place] Nqtvqnamoq1522 [place] [address]Dr. Farhat Leal GS_DIPTH Normal The [facility] [place] Comment on above: Performed By: #### G STAIN ####[facility] [place] Ubjctigzlv7[address] [place] [address]Dr. Farhat Leal WBC RARE Normal The [facility] [place] Comment on above: Performed By: #### G STAIN ####[facility] [place] Sbpzwzextc7194 [place] [address]Dr. Farhat Leal DIPHTHEROIDS Normal The [facility] [place] Comment on above: Performed By: #### G STAIN ####[facility] [place] Edlfvmjtnc1433 [place] [address]Dr. Farhat Leal EPITHELIALS Normal The [facility] [place] Comment on above: Performed By: #### G STAIN ####[facility] [place] Vbwvlvmhkr1508 [place] [address]Dr. Farhat Leal FUNGAL ELEMENTS Normal The [facility] Comment on above: Performed By: #### G STAIN ####[facility] [place] Kcbbphcvim1278 [place] [address]Dr. Farhat Leal GRAM NEG BACILLI FEW Normal [facility] Comment on above: Performed By: #### G STAIN ####[facility] [place] Zwflzktocb4242 [place] [address]Dr. Farhat Leal GRAM NEG DIPPLOCOCCI Normal The [facility] [place] Comment on above: Performed By: #### G STAIN ####[facility] [place] Hoolffsfks[address] [place], [place] [address]Dr. Farhat Leal GRAM POS BACILLI Normal [facility] Comment on above: Performed By: #### G STAIN ####[facility] [place] Bzfyqgswnt[address] [place], [place] [address]Dr. Farhat Leal GRAM POSITIVE COCCI FEW Normal [facility] Comment on above: Performed By: #### G STAIN ####[facility] Baxxpbcirn7436[address] [place], [place] [address]Dr. Farhat Leal GRAM STAIN SOURCE #2 Rt foot abscess Normal The [facility] [place] Comment on above: Performed By: #### G STAIN ####[facility] [place] Ppzaorfhfs[address] [place], [place] [address]Dr. Farhat Leal GS_DIPTH Normal The [facility] Comment on above: Performed By: #### G STAIN ####[facility] [place] Awjtvlsvjm[address] [place], [place] [address]Dr. Farhat Leal WBC RARE Normal The [facility] [place] Comment on above: Performed By: #### G STAIN ####[facility] [place] Rbjhxpnnrs[address] [place], [place] [address]Dr. Farhat Leal DIPHTHEROIDS Normal The [facility] Comment on above: Performed By: #### G STAIN ####[facility] [place] Zxubbzkuen[address] [place], [place] [address]Dr. Farhat Leal EPITHELIALS Normal The [facility] [place] Comment on above: Performed By: #### G STAIN ####[facility] [place] Fjthjhncdr[address] [place], [place] [address]Dr. Farhat Leal FUNGAL ELEMENTS Normal The [facility] Comment on above: Performed By: #### G STAIN ####[facility] [place] Noagvbioxj7996 [place] [address]Dr. Farhat Leal GRAM NEG BACILLI FEW Normal [facility] Comment on above: Performed By: #### G STAIN ####[facility] [place] Znquutxhhj1792 [place] [address]Dr. Farhat Leal GRAM NEG DIPPLOCOCCI Normal The [facility] Comment on above: Performed By: #### G STAIN ####[facility] [place] Fuhmrsqjbv3764 [place] [address]Dr. Farhat Leal GRAM POS BACILLI Normal [facility] Comment on above: Performed By: #### G STAIN ####[facility] [place] Ykqazrhmjh[address] [place], [place] [address]Dr. Farhat Leal GRAM POSITIVE COCCI FEW Normal The [facility] Comment on above: Performed By: #### G STAIN ####[facility] [place] Ubwccuvqfn[address] [place], [place] [address]Dr. Farhat Leal GRAM STAIN SOURCE #1 Rt foot abscess Normal The [facility] Comment on above: Performed By: #### G STAIN ####[facility] [place] Majzmlhwkj7[address] [place], [place] [address]Dr. Farhat Leal GS_DIPTH Normal The [facility] [place] Comment on above: Performed By: #### G STAIN ####[facility] Skeeoiycsv6[address] [place], [place] [address]Dr. Farhat Leal WBC NONE SEEN Normal The [facility] Comment on above: Performed By: #### G STAIN ####[facility] [place] Jkuamhhzav[address]16[address] [place], [place] [address]Dr. Farhat Leal POINT OF CARE GLUCOSEon 10-1 0-2021 Glucose [Mass/Vol] 331 mg/dL Critically high 74-106 [facility] Comment on above: Performed By: #### P OCGLUC ####[facility] Rolvgfgfqc6408 [place] [address]Dr. Farhat Leal Glucose [Mass/Vol] 236 mg/dL Critically high 74-106 [facility] Comment on above: Performed By: #### P OCGLUC ####[facility] Utseizcslg9634 [place] [address]Dr. Farhat Leal PROF 14(COMP METB)on 022 Albumin [Mass/Vol] 1.6 g/dL Critically low 3.4-5.0 [facility] Comment on above: Performed By: #### B HEAD CHARRER, CMP, CRP ####[facility] [place] Nrncjorcdy5595 [place] [address]Dr. Farhat Leal Albumin/Globulin [Mass ratio] 0.4 {ratio} Normal [facility] Comment on above: Performed By: #### B HEAD CHARRER, CMP, CRP ####[facility] [place] Pzxljgobbo7592 [place] [address]Dr. Farhat Leal ALP [Catalytic activity/Vol] 94 U/L Normal 46-116 [facility] Comment on above: Performed By: #### B HEAD CHARRER, CMP, CRP ####[facility] [place] Amfwackvtt2300 [place] [address]Dr. Farhat Leal ALT [Catalytic activity/Vol] 49 U/L Normal 16-63 [facility] Comment on above: Performed By: #### B HEAD CHARRER, CMP, CRP ####[facility] [place] Jwsosvhxcb0717 [place] [address]Dr. Farhat Leal Anion gap [Moles/Vol] 12.5 mmol/L Normal [facility] Comment on above: Performed By: #### B HEAD CHARRER, CMP, CRP ####[facility] [place] Xcdurlvefq6115 [place] [address]Dr. Farhat Leal AST [Catalytic activity/Vol] 102 U/L Critically high 15-37 [facility] Comment on above: Performed By: #### B HEAD CHARRER, CMP, CRP ####[facility] [place] Wripwdqbav0013 [place] [address]Dr. Farhat Leal Bilirubin [Mass/Vol] 0.8 mg/dL Normal 0.2-1.0 [facility] Comment on above: Performed By: #### B HEAD CHARRER, CMP, CRP ####[facility] Insffislae2976 [place] [address]Dr. Farhat Leal Calcium [Mass/Vol] 8.4 mg/dL Critically low 8.5-10.1 Th [facility] Comment on above: Performed By: #### B HEAD CHARRER, CMP, CRP ####[facility] Zlgsiithhx[address] [place], [place] [address]Dr. Farhat Leal Chloride [Moles/Vol] 96 mmol/L Critically low 98-107 The [facility] Comment on above: Performed By: #### B HEAD CHARRER, CMP, CRP ####[facility] Downeqhwxa[address] [place], [place] [address]Dr. Farhat Leal CO2 [Moles/Vol] 24.8 mmol/L Normal 21.0-32.0 [facility] Comment on above: Performed By: #### B HEAD CHARRER, CMP, CRP ####[facility] Xpzmqvxgmm[address] [place], [place] [address]Dr. Farhat Leal Creatinine [Mass/Vol] 1.36 mg/dL Critically high 0.70-1.30 [facility] Comment on above: Performed By: #### B HEAD CHARRER, CMP, CRP ####[facility] Vvahnapsuj0[address] [place], [place] [address]Dr. Farhat Leal EGFR-AF NICARAGUAN >60 Normal >=60 [facility] Comment on above: Performed By: #### B HEAD CHARRER, CMP, CRP ####[facility] [place] Vrnkukyjut[address] [place], [place] [address]Dr. Farhat Leal EGFR-NON AF NICARAGUAN 51 mL/min/1.73m2 Critically low >=60 The [facility] Comment on above: Performed By: #### B HEAD CHARRER, CMP, CRP ####[facility] [place] Zevyysgklc[address] [place], [place] [address]Dr. Farhat Elvis Globulin (S) [Mass/Vol] 4.1 g/dL Normal The [facility] [place] Comment on above: Performed By: #### B HEAD CHARRER, CMP, CRP ####[facility] Hfltgchubg[address] [place], [place] [address]Dr. Farhat Leal Glucose [Mass/Vol] 204 mg/dL Critically high 74-106 [facility] Comment on above: Performed By: #### B HEAD CHARRER, CMP, CRP ####[facility] [place] Naakuqrapb3385 [place] [address]Dr. Farhat Leal Potassium [Moles/Vol] 4.3 mmol/L Normal 3.5-5.1 [facility] Comment on above: Performed By: #### B HEAD CHARRER, CMP, CRP ####[facility] [place] Kddrozccyi8291 [place] [address]Dr. Farhat Leal Protein [Mass/Vol] 5.7 g/dL Critically low 6.4-8.2 Th [facility] Comment on above: Performed By: #### B HEAD CHARRER, CMP, CRP ####[facility] [place] Xzxvwefoqt9363 [place] [address]Dr. Farhat Leal Sodium [Moles/Vol] 129 mmol/L Critically low 136-145 Th [facility] Comment on above: Performed By: #### B HEAD CHARRER, CMP, CRP ####[facility] [place] Ksokelgzxi8[address] [place], [place] [address]Dr. Farhat Leal Urea nitrogen [Mass/Vol] 41.0 mg/dL Critically high 7.0-18.0 [facility] Comment on above: Performed By: #### B HEAD CHARRER, CMP, CRP ####[facility] [place] Qtnyddnepi[address] [place], [place] [address]Dr. Farhat Leal Urea nitrogen/Creatinine [Mass ratio] 30.1 mg/mg Normal [facility] Comment on above: Performed By: #### B HEAD CHARRER, CMP, CRP ####[facility] [place] Cdmdebownz[address] [place], [place] [address]Dr. Farhat Leal PROTIMEon 11-24-2021 INR Coag (PPP) [Relative time] 2.20 {INR} Normal [facility] Comment on above: Performed By: #### P T ####[facility] Qwctagiytv[address] [place], [place] [address]Dr. Farhat Leal INR GUIDELINES SEE BELOW Normal [facility] Comment on above: Result Comment: MALINA RED INR: 2.0 - 3.0 CONDITIONS NOT LISTED BELOW 2.5 - 3.5 FOR PROSTHETIC HEART VALVE REPLACEMENT 2.5 - 3.5 RECURRENT THROMBOSIS Performed By: #### P T ####[facility] Iqprnsfbfz[address] [place], [place] [address]Dr. Farhat Leal PT Coag (PPP) [Time] 22.6 s Critically high 9.0-11.6 The [facility] [place] Comment on above: Performed By: #### P T ####[facility] Ltlwixbbgk[address] [place], [place] [address]Dr. Farhat Leal SED RATE [facility] 2021 SED RATE 80 mm/hr Critically high <=20 The [facility] Comment on above: Performed By: #### S EDR ####[facility] [place] Bxlbzsriis[address] [place], [place] [address]Dr. Farhat Leal BLOOD CULTURE ID PANELon A. baumannii Not detected Normal NOT DETECTED [facility] Comment on above: Performed By: #### B CID2 ####[facility] [place] Wthdtwwzds[address] [place], [place] [address]Dr. Farhat Elvis Bacteriodes fragilis Not detected Normal NOT DETECTED The [facility] Comment on above: Performed By: #### B CID2 ####[facility] [place] Zglrwfhefe[address] [place], [place] [address]Dr. Farhat Elvis BCID CONTROLS PASSED Normal The [facility] Comment on above: Performed By: #### B CID2 ####[facility] [place] Rryfvdblcj[address] [place], [place] [address]Dr. Farhat Elvis BCIDBTHD BLOOD CULTURE BOTTLE INFORMATION Normal The [facility] Comment on above: Performed By: #### B CID2 ####[facility] Qqixpsswvd[address] [place], [place] [address]Dr. Farhat Leal BCIDHD1 ANTIMICROBIAL RESISTANCE GENES Normal The [facility] [place] Comment on above: Performed By: #### B CID2 ####[facility] Ytdmgnodol[address] [place], [place] [address]Dr. Farhat Leal BCIDHD2 SEE BELOW Normal The [facility] Comment on above: Result Comment: Note : Antimicrobial resitance can occur via multiple mechanisms. A Not Detected result for the [employer] antomicrobial resistance gene assays does not indicate antimicrobial susceptibility. Subculturing is required for species identification and susceptibility testing of isolates. Performed By: #### B CID2 ####[facility] Eyzcgcfxbm5386 [place] [id number]. Farhat Leal BCIDHD3 Positive Normal The [facility] Comment on above: Performed By: #### B CID2 ####[facility] [place] Ktphzduinv2033 [place] [address]Dr. Farhat Leal BCIDHD4 Negative Normal The [facility] Comment on above: Performed By: #### B CID2 ####[facility] Bzyepkqjmg6324 [place] [address]Dr. Farhat Leal BCIDHD5 YEAST Normal The [facility] [place] Comment on above: Performed By: #### B CID2 ####[facility] Kglppgfglk0805 [place] [address]Dr. Farhat Leal Bottle Set: Set 1 Normal The [facility] [place] Comment on above: Performed By: #### B CID2 ####[facility] [place] Nvhlumeduj1359 [place] [address]Dr. Farhat Leal Bottle: Aerobic Normal The [facility] [place] Comment on above: Performed By: #### B CID2 ####[facility] Gmbbveqsxc8574 [place] [address]Dr. Farhat Leal C. neoformans/gattii Not detected Normal NOT DETECTED The [facility] Comment on above: Performed By: #### B CID2 ####[facility] Vfoozotmxc6546 [place] [address]Dr. Farhat Leal Disha albicans Not detected Normal NOT DETECTED The [facility] Comment on above: Performed By: #### B CID2 ####[facility] [address] [place] [address]Dr. Farhat Leal Disha auris Not detected Normal NOT DETECTED [facility] Comment on above: Performed By: #### B CID2 ####[facility] Hbsmyfvvgw[address] [place] [address]Dr. Farhat Leal Disha glabrata Not detected Normal NOT DETECTED The [facility] Comment on above: Performed By: #### B CID2 ####[facility] Maasgbcesy[address] [place] [address]Dr. Farhat Leal Disha Krusei Not detected Normal NOT DETECTED The [facility] Comment on above: Performed By: #### B CID2 ####[facility] Mmhlrunzau[address] [place], [place] [address]Dr. Farhat Leal Disha Parapsilosis Not detected Normal NOT DETECTED The [facility] Comment on above: Performed By: #### B CID2 ####[facility] Ypwxhlltuw[address] [place], [place] [address]Dr. Yilan Leal Disha Tropicalis Not detected Normal NOT DETECTED [facility] Comment on above: Performed By: #### B CID2 ####[facility] Jyksagttxt[address] [place], [place] [address]Dr. Farhat Leal CTX-M Resistant Gene Not Applicable Normal NOT DETECTE D [facility] Comment on above: Performed By: #### B CID2 ####[facility] Zjuqubgimb4[address] [place], [place] [address]Dr. Farhat Leal E. Cloacae complex Not detected Normal NOT DETECTED [facility] Comment on above: Performed By: #### B CID2 ####[facility] Efunvpqgms[address] [place], [place] [address]Dr. Yilorri Leal E. faecalis Not detected Normal NOT DETECTED The [facility] Comment on above: Performed By: #### B CID2 ####[facility] Ylwehqurti[address] [place], [place] [address]Dr. Farhat Leal E. faecium Not detected Normal NOT DETECTED [facility] Comment on above: Performed By: #### B CID2 ####[facility] Zsklxtrrzs[address] [place], [place] [address]Dr. Yilan Leal Enterobacteriaceae Not detected Normal NOT DETECTED [facility] Comment on above: Performed By: #### B CID2 ####[facility] Epgldkttyt4610[address] [place], [place] [address]Dr. Yilan Leal Escherichia coli Not detected Normal NOT DETECTED The [facility] Comment on above: Performed By: #### B CID2 ####[facility] Ytgqufcajz[address] [place], [place] [address]Dr. Yilan Leal H. influenzae Not detected Normal NOT DETECTED [facility] Comment on above: Performed By: #### B CID2 ####[facility] Gskrjhysid[address] [place] [address]Dr. Farhat Leal IMP Resistant Gene Not Applicable Normal NOT DETECTED The [facility] Comment on above: Performed By: #### B CID2 ####[facility] Iwfbhhrwdw4[address] [place] [phone]. Madelynlorri Leal K. oxytoca Not detected Normal NOT DETECTED [facility] Comment on above: Performed By: #### B CID2 ####[facility] Sztqvyfyib[address] [place] [address]Dr. Farhat Leal K. pneumoniae Not detected Normal NOT DETECTED [facility] Comment on above: Performed By: #### B CID2 ####[facility] Mfozfxqetb[address] [place], [place] [address]Dr. Farhat Leal Klebsiella aerogenes Not detected Normal NOT DETECTED The [facility] Comment on above: Performed By: #### B CID2 ####[facility] Rnpuoienon[address] [place], [place] [address]Dr. Farhat Leal KPC Resistant Gene Not Applicable Normal NOT DETECTED The [facility] Comment on above: Performed By: #### B CID2 ####[facility] Donrcvtzcw[address] [place], [place] [address]Dr. Farhat Leal List. monocytogenes Not detected Normal NOT DETECTED [facility] Comment on above: Performed By: #### B CID2 ####[facility] Hniwcdyriv9[address] [place], [place] [address]Dr. Farhat Leal Mcr-1 Resistant Gene Not Applicable Normal NOT DETECTE D The [facility] Comment on above: Performed By: #### B CID2 ####[facility] Tfcyrptezh[address] [place] [address]Dr. Farhat Leal mecA/C Not Applicable Normal NOT DETECTED [facility] Comment on above: Performed By: #### B CID2 ####[facility] Gjjxyczosk7[address] [place] [address]Dr. Farhat Leal mecA/C MREJ Detected Abnormal NOT DETECTED The [facility] Comment on above: Performed By: #### B CID2 ####[facility] Ifcdvxqcoh9023 [place] [address]Dr. Farhat Leal N. meningitidis Not detected Normal NOT DETECTED The [facility] Comment on above: Performed By: #### B CID2 ####[facility] Aqzlvadqtu[address] [place], [place] [address]Dr. Farhat Leal NDM Resistant Gene Not Applicable Normal NOT DETECTED The [facility] Comment on above: Performed By: #### B CID2 ####[facility] Lvpexnngcz95[address] [place], [place] [address]Dr. Farhat Leal Oxa-48-like Not Applicable Normal NOT DETECTED [facility] Comment on above: Performed By: #### B CID2 ####[facility] Vhyxnjgxzk[address]27[address] [place], [place] [address]Dr. Farhat Leal Proteus Not detected Normal NOT DETECTED [facility] Comment on above: Performed By: #### B CID2 ####[facility] Gjzshabzpy[address]25[address] [place], [place] [address]Dr. Farhat Leal Pseud. aeruginosa Not detected Normal NOT DETECTED The [facility] Comment on above: Performed By: #### B CID2 ####[facility] Amfwmsizgt1039[address] [place], [place] [address]Dr. Farhat Leal S. maltophilia Not detected Normal NOT DETECTED [facility] Comment on above: Performed By: #### B CID2 ####[facility] Opcfgqtntc9[address] [place], [place] [address]Dr. Farhat Leal Salmonella Not detected Normal NOT DETECTED [facility] Comment on above: Performed By: #### B CID2 ####[facility] Jrdyjqfmdg8[address] [place], [place] [address]Dr. Farhat Leal Seratia marcescens Not detected Normal NOT DETECTED [facility] Comment on above: Performed By: #### B CID2 ####[facility] Xqjtwmyazf1664[address] [place], [place] [address]Dr. Farhat Leal Site: Rt Hand Normal The [facility] Comment on above: Performed By: #### B CID2 ####[facility] Wdtyjcbhxw[address] [place], [place] [address]Dr. Farhat Leal Staph. aureus Detected Abnormal NOT DETECTED The [facility] Comment on above: Performed By: #### B CID2 ####[facility] Xrvbgiwzkh96[address] [place], [place] [address]Dr. Farhat Leal Staph. epidermidis Not detected Normal NOT DETECTED [facility] Comment on above: Performed By: #### B CID2 ####[facility] Iuiwrvoneq[address] [place], [place] [address]Dr. Farhat Leal Staph. lugdunensis Not detected Normal NOT DETECTED [facility] Comment on above: Performed By: #### B CID2 ####[facility] Sidvxuimhm[address]28[address] [place], [place] [address]Dr. Farhat Leal Staphylococcus Detected Abnormal NOT DETECTED The [facility] Comment on above: Performed By: #### B CID2 ####[facility] Frskwqykxz9984[address] [place], [place] [address]Dr. Farhat Leal Strep. agalactiae Not detected Normal NOT DETECTED The [facility] Comment on above: Performed By: #### B CID2 ####[facility] Mwmnfwqxjv[address] [place], [place] [address]Dr. Farhat Leal Strep. pneumoniae Not detected Normal NOT DETECTED The [facility] Comment on above: Performed By: #### B CID2 ####[facility] Xctlbkkhmw[address] [place], [place] [address]Dr. Farhat Leal Strep. pyogenes Not detected Normal NOT DETECTED The [facility] Comment on above: Performed By: #### B CID2 ####[facility] Amrvmnfror[address] [place], [place] [address]Dr. Farhat Leal Streptococcus Not detected Normal NOT DETECTED [facility] Comment on above: Performed By: #### B CID2 ####[facility] Qxcpegjaww5357[address] [place], [place] [address]Dr. Farhat Leal Teodoro/B Resist. Gene Not Applicable Normal NOT DETECTED The [facility] Comment on above: Performed By: #### B CID2 ####[facility] Eshgjmfihv[address] [place], [place] [address]Dr. Farhat Leal VIM Resistant Gene Not Applicable Normal NOT DETECTED The [facility] Comment on above: Performed By: #### B CID2 ####[facility] [address]axlpe[address] [place] [address]Dr. Farhat Leal BNPon 11-23-2021 Natriuretic peptide B (Bld) [Mass/Vol] 10589.0 pg/mL Critically high <=1,800.0 The [facility] Comment on above: Performed By: #### C MP, CMADM, BNP ####[facility] Svirsozjtu[address] [place] [address]Dr. Farhat Leal CARDIAC AMANDA ADMITon 022 CK [Catalytic activity/Vol] 41 U/L Normal 39-308 The [facility] Comment on above: Performed By: #### C MP, CMADM, BNP ####[facility] Fdzpcqyfuf[address] [place] [address]Dr. Farhat Leal CK.MB [Mass/Vol] 0.98 ng/mL Normal <=3.60 The [facility] Comment on above: Performed By: #### C MP, CMADM, BNP ####[facility] Oqctebasyn[address] [place] [address]Dr. lorri Leal HSTROP 30.1 pg/mL Normal 4.0-76.1 The [facility] Comment on above: Result Comment: CUT- OFF POINTS HAVE BEEN ESTABLISHED BASED ON THE FOURTH UNIVERSAL DEFINITIONS OF MYOCARDIALINFARCTION. THE UPPER REFERENCE LIMIT (URL) OF TROPONIN, DEFINED THE 99TH PERCENTILE OFcTnI DISTRIBUTION IN A REFERENCE POPULATION, HAS BEEN CONFIRMED THE DECISION THRESHOLDFOR [place] DIAGNOSIS. Performed By: #### C MP, CMADM, BNP ####[facility] Vpgupoyejb[address] [place] [address]Dr. Farhat Leal VALERIA 160 ng/mL Critically high 16-96 The [facility] Comment on above: Performed By: #### C MP, CMADM, BNP ####[facility] Ebumwlytzo[address] [place] [address]Dr. Farhat Leal CBC AUTO DIFFon 11-23-2021 BASO # 0.0 103/ul Normal 0.0-0.1 The [facility] Comment on above: Performed By: #### C BC ####[facility] Qckfapesxy[address] [place] [phone]. Farhat Leal Basophils/100 WBC (Bld) 0.2 % Normal 0.2-2.0 The [facility] Comment on above: Performed By: #### C BC ####[facility] Jaijzvgkar[address] [place] [phone]. Farhat Leal EO # 0.0 103/ul Normal 0.0-0.7 The [facility] Comment on above: Performed By: #### C BC ####[facility] Tdjnarfbau[address] [place], [place] [address]Dr. Farhat Leal Eosinophils/100 WBC (Bld) 0.1 % Critically low 0.9-7.0 [facility] Comment on above: Performed By: #### C BC ####[facility] Coviosycaw[address] [place], [place] [address]Dr. Farhat Leal Erythrocyte distribution width (RBC) [Ratio] 13.4 % Normal 11.0-15.0 [facility] Comment on above: Performed By: #### C BC ####[facility] Uocovrrtjl[address] [place], [place] [address]Dr. Farhat Leal Hematocrit (Bld) [Volume fraction] 31.6 % Critically low 42.0-54.0 [facility] Comment on above: Performed By: #### C BC ####[facility] J[address]ax[address] [place], [place] [id number]. Farhat Leal Hemoglobin (Bld) [Mass/Vol] 10.4 g/dL Critically low 14.0-18.0 [facility] Comment on above: Performed By: #### C BC ####[facility] Bqtiewseto[address] [place], [place] [address]Dr. Farhat Leal IG # 0.11 10e3/ul Critically high 0.00-0.03 [facility] Comment on above: Performed By: #### C BC ####[facility] Ztpzlakbnj[address] [place], [place] [address]Dr. Farhat Leal IG % 0.7 % Critically high 0.0-0.5 The [facility] Comment on above: Performed By: #### C BC ####[facility] [address]qsfdgq34[address] [place] [phone]. Farhat Leal LYMPH # 0.5 103/ul Critically low 1.2-3.8 [facility] Comment on above: Performed By: #### C BC ####[facility] Zgeqgrxinx9526 [place] [phone]. Farhat Leal Lymphocytes/100 WBC (Bld) 2.8 % Critically low 20.5-60.0 [facility] Comment on above: Performed By: #### C BC ####[facility] Ufumqqenpr80[address] [place] [phone]. Farhat Leal MANUAL DIFF REQ NO Normal [facility] Comment on above: Performed By: #### C BC ####[facility] Jnbcmlxqlm7[address] [place] [phone]. Farhat Leal MCH (RBC) [Entitic mass] 29.8 pg Normal 25.9-34.0 [facility] Comment on above: Performed By: #### C BC ####[facility] Iwqxsleldu75[address] [place] [phone]. Farhat Leal MCHC (RBC) [Mass/Vol] 32.9 g/dL Normal 29.9-35.2 The [facility] Comment on above: Performed By: #### C BC ####[facility] Hwsyioudju027[address] [place] [phone]. Farhat Leal MCV (RBC) [Entitic vol] 90.5 fL Normal 80.0-94.0 The [facility] Comment on above: Performed By: #### C BC ####[facility] Y[address]rlawecmi[address] [place] [phone] Leal MONO # 1.3 103/ul Critically high 0.3-0.8 The [facility] Comment on above: Performed By: #### C BC ####[facility] Ockfazmmti45[address] [place] [phone]. Farhat Leal Monocytes/100 WBC (Bld) 8.3 % Normal 1.7-12.0 The [facility] Comment on above: Performed By: #### C BC ####[facility] Jmeatlhwmj6906 [place] [phone]. Farhat Leal NEUT # 13.9 103/ul Critically high 1.4-6.5 [facility] Comment on above: Performed By: #### C BC ####[facility] Gkzkqyogqb90[address] [place] [phone] Farhat Leal Neutrophils/100 WBC (Bld) 87.9 % Critically high 43.0-75.0 [facility] Comment on above: Performed By: #### C BC ####[facility] Adiliahuze8563 [place] [phone]. Farhat Leal Platelet mean volume (Bld) [Entitic vol] 9.3 fL Critically low 9.5-13.5 [facility] Comment on above: Performed By: #### C BC ####[facility] Tlfkvaytcz14[address] [place] [phone]. Farhat Leal PLT 390 103/ul Normal 150-450 [facility] Comment on above: Performed By: #### C BC ####[facility] Clindndwqg36[address] [place] [phone]. Farhat Leal RBC 3.49 106/ul Critically low 4.70-6.10 The [facility] Comment on above: Performed By: #### C BC ####[facility] Hswtnpssug5[address] [place] [phone]. Farhat Leal WBC 15.9 103/ul Critically high 4.0-11.0 [facility] Comment on above: Performed By: #### C BC ####[facility] Hntuuvvxsc[address] [place] [phone]. Farhat Leal CT HEAD WO CONon 11-23-2021 CT HEAD WO CON Normal [facility] CULTURE BLOODon 11-23-2021 Microscopic examination of blood, culture Culture Observations: NO GROWTH AT 5 DAYS. Normal The [facility] Comment on above: Performed By: #### B LDCX2 ####[facility] Uccrnqvznr98[address] [place] [phone]. Farhat Elvis Covid-19 PCR (CVDTBH)on SARS-CoV-2 (COVID-19) RNA JOSH+probe Ql (Unsp spec) Not detected Normal NOT DETECTED The [facility] Comment on above: Result Comment: When diagnostic [...] for this test is supported by the [employer] of Health and Human Service's declaration that [...] Performed By: #### C VDTBH ####[facility] Hsmrcmwrod[address] [place], [place] [address]DrSkylar Leal LACTATE/LACTIC ACIDon 2021 Lactate [Moles/Vol] 1.3 mmol/L Normal 0.4-1.9 [facility] Comment on above: Performed By: #### L ACT ####[facility] Ylchdmewdc[address] [place], [place] [address]DrSkylar Leal Lactate [Moles/Vol] 1.3 mmol/L Normal 0.4-1.9 The [facility] Comment on above: Performed By: #### L ACT ####[facility] Ehlppmvpdo[address] [place], [place] [address]DrSkylar Leal POINT OF CARE GLUCOSEon Glucose [Mass/Vol] 252 mg/dL Critically high 74-106 [facility] Comment on above: Performed By: #### P OCGLUC ####[facility] Gbvqouuzzd[address] [place], [place] [address]Dr. Farhat Leal PROF 14(COMP METB)on 022 Albumin [Mass/Vol] 1.6 g/dL Critically low 3.4-5.0 Th [facility] Comment on above: Performed By: #### C MP, CMADM, BNP ####[facility] Ausakseids[address] [place] [address]Dr. Farhat Leal Albumin/Globulin [Mass ratio] 0.4 {ratio} Normal [facility] Comment on above: Performed By: #### C MP, CMADM, BNP ####[facility] Gresnmoemu[address] [place] [address]Dr. Farhat Leal ALP [Catalytic activity/Vol] 98 U/L Normal 46-116 [facility] Comment on above: Performed By: #### C MP, CMADM, BNP ####[facility] Icxxkohror[address] [place] [address]Dr. Farhat Leal ALT [Catalytic activity/Vol] 52 U/L Normal 16-63 [facility] Comment on above: Performed By: #### C MP, CMADM, BNP ####[facility] Ntnedfretc[address] [place] [address]Dr. Farhat Leal Anion gap [Moles/Vol] 9.8 mmol/L Normal [facility] Comment on above: Performed By: #### C MP, CMADM, BNP ####[facility] Tipwspigwq0[address] [place] [address]Dr. Farhat Leal AST [Catalytic activity/Vol] 122 U/L Critically high 15-37 [facility] Comment on above: Performed By: #### C MP, CMADM, BNP ####[facility] Rejmnhehgp[address] [place] [address]Dr. Farhat Leal Bilirubin [Mass/Vol] 0.7 mg/dL Normal 0.2-1.0 [facility] Comment on above: Performed By: #### C MP, CMADM, BNP ####[facility] Tqkjozwcuc[address] [place] [address]Dr. Farhat Leal Calcium [Mass/Vol] 8.6 mg/dL Normal 8.5-10.1 [facility] Comment on above: Performed By: #### C MP, CMADM, BNP ####[facility] Xrtomdkcqe3489 [place] [address]Dr. Farhat Leal Chloride [Moles/Vol] 95 mmol/L Critically low 98-107 [facility] Comment on above: Performed By: #### C MP, CMADM, BNP ####[facility] Mpjjkmzjjz36[address] [place] [address]Dr. Farhat Leal CO2 [Moles/Vol] 29.6 mmol/L Normal 21.0-32.0 [facility] Comment on above: Performed By: #### C MP, CMADM, BNP ####[facility] Csklakhdzs[address] [place] [address]Dr. Farhat Leal Creatinine [Mass/Vol] 1.49 mg/dL Critically high 0.70-1.30 [facility] Comment on above: Performed By: #### C MP, CMADM, BNP ####[facility] Gexjgntqwd[address] [place], [place] [address]Dr. Farhat Leal EGFR-AF NICARAGUAN 55 mL/min/1.73m2 Critically low >=60 [facility] Comment on above: Performed By: #### C MP, CMADM, BNP ####[facility] Iljjmgmofn[address] [place], [place] [address]Dr. Farhat Leal EGFR-NON AF NICARAGUAN 46 mL/min/1.73m2 Critically low >=60 [facility] Comment on above: Performed By: #### C MP, CMADM, BNP ####[facility] Diceiqdsox[address] [place] [address]Dr. Farhat Leal Globulin (S) [Mass/Vol] 4.3 g/dL Normal [facility] Comment on above: Performed By: #### C MP, CMADM, BNP ####[facility] [address]bcnvqn[address] [place] [address]Dr. Frahat Leal Glucose [Mass/Vol] 213 mg/dL Critically high 74-106 [facility] Comment on above: Performed By: #### C MP, CMADM, BNP ####[facility] [place] Wsktluludn[address] [place] [address]Dr. Farhat Leal Potassium [Moles/Vol] 4.4 mmol/L Normal 3.5-5.1 [facility] Comment on above: Performed By: #### C MP, CMADM, BNP ####[facility] [place] Dhqoryrolh[address] [place] [address]Dr. Farhat Leal Protein [Mass/Vol] 5.9 g/dL Critically low 6.4-8.2 Th [facility] Comment on above: Performed By: #### C MP, CMADM, BNP ####[facility] [place] Sum[address]zb[address] [place], [place] [address]Dr. Farhat Leal Sodium [Moles/Vol] 130 mmol/L Critically low 136-145 Th [facility] Comment on above: Performed By: #### C MP, CMADM, BNP ####[facility] [place] Gdvsmgssal[address] [place], [place] [address]Dr. Farhat Leal Urea nitrogen [Mass/Vol] 46.0 mg/dL Critically high 7.0-18.0 [facility] Comment on above: Performed By: #### C MP, CMADM, BNP ####[facility] [place] Yxug[address]kpkm[address] [place], [place] [address]Dr. Farhat Leal Urea nitrogen/Creatinine [Mass ratio] 30.9 mg/mg Normal [facility] Comment on above: Performed By: #### C MP, CMADM, BNP ####[facility] [place] Wqvqkmwymf[address] [place], [place] [address]Dr. Farhat Leal PROTIMEon 11-23-2021 INR Coag (PPP) [Relative time] 2.55 {INR} Normal [facility] Comment on above: Performed By: #### P TT, PT ####[facility] Eubiyogkuv[address] [place], [place] [address]Dr. Farhat Leal INR GUIDELINES SEE BELOW Normal [facility] Comment on above: Result Comment: MALINA RED INR: 2.0 - 3.0 CONDITIONS NOT LISTED BELOW 2.5 - 3.5 FOR PROSTHETIC HEART VALVE REPLACEMENT 2.5 - 3.5 RECURRENT THROMBOSIS Performed By: #### P TT, PT ####[facility] [place] Jwxzqkyedi[address] [place] [phone]. Farhat Leal PT Coag (PPP) [Time] 25.9 s Critically high 9.0-11.6 The [facility] [place] Comment on above: Performed By: #### P TT, PT ####[facility] Ak[address]rcya[address] [place] [address]Dr. Farhat Leal PTTon 11-23-2021 aPTT Coag (Bld) [Time] 39.9 s Critically high 22.3-36. 2 The [facility] Comment on above: Performed By: #### P TT, PT ####[facility] [place] Mcjpfbxhfb[address] [place], [place] [address]Dr. Farhat Leal XR CHEST 1 Von 11-23-2021 XR CHEST 1 V Normal The [facility] XR HEEL RT 2Von 11-23-2021 XR HEEL RT 2V Normal [facility] XR FOOT RT MIN 3 VIEWSon XR FOOT RT MIN 3 VIEWS Normal [facility] US ARTERY LEG RTon US ARTERY LEG RT Normal [facility] CBC AUTO DIFFon 09-24-2021 BASO # 0.1 103/ul Normal 0.0-0.1 The [facility] [place] Comment on above: Performed By: #### C BC ####[facility] [place] L[address]wzm[address]xb[address] [place], [place] [address]Dr. Farhat Leal Basophils/100 WBC (Bld) 0.7 % Normal 0.2-2.0 The [facility] Comment on above: Performed By: #### C BC ####[facility] [place] Clxcenctdv[address] [place], [place] [address]Dr. Farhat Leal EO # 0.3 103/ul Normal 0.0-0.7 The [facility] Comment on above: Performed By: #### C BC ####[facility] [place] Gpsasxsepe[address] [place], [place] [address]Dr. Farhat Leal Eosinophils/100 WBC (Bld) 3.9 % Normal 0.9-7.0 The [facility] [place] Comment on above: Performed By: #### C BC ####[facility] [place] Vq[address]zsewgy[address] [place] [address]Dr. Farhat Leal Erythrocyte distribution width (RBC) [Ratio] 12.6 % Normal 11.0-15.0 The [facility] [place] Comment on above: Performed By: #### C BC ####[facility] [place] Qsgcltlhcb40[address] [place] [address]Dr. Farhat Leal Hematocrit (Bld) [Volume fraction] 38.9 % Critically low 42.0-54.0 [facility] Comment on above: Performed By: #### C BC ####[facility] [place] Hjpsjovjnz[address] [place] [address]Dr. Farhat Leal Hemoglobin (Bld) [Mass/Vol] 12.8 g/dL Critically low 14.0-18.0 [facility] Comment on above: Performed By: #### C BC ####[facility] [place] Glvussjfdj[address] [place], [place] [address]Dr. Farhat Leal IG # 0.10 10e3/ul Critically high 0.00-0.03 [facility] Comment on above: Performed By: #### C BC ####[facility] [place] Uwfcycnkbx[address] [place], [place] [address]Dr. Farhat Leal IG % 1.2 % Critically high 0.0-0.5 [facility] Comment on above: Performed By: #### C BC ####[facility] Ssfcthqtis[address] [place], [place] [address]Dr. Farhat Leal LYMPH # 2.1 103/ul Normal 1.2-3.8 The [facility] Comment on above: Performed By: #### C BC ####[facility] [place] Qjzrbnzxhs[address] [place], [place] [address]Dr. Farhat Leal Lymphocytes/100 WBC (Bld) 25.9 % Normal 20.5-60.0 The [facility] [place] Comment on above: Performed By: #### C BC ####[facility] Opnlzzgxlm[address]64[address] [place], [place] [address]Dr. Farhat Leal MANUAL DIFF REQ NO Normal The [facility] Comment on above: Performed By: #### C BC ####[facility] [place] Kq[address]isssykt4[address] [place] [phone]. Farhat Leal MCH (RBC) [Entitic mass] 31.1 pg Normal 25.9-34.0 The [facility] Comment on above: Performed By: #### C BC ####[facility] [place] Xsafbquprx1686 [place] [phone]. Farhat Leal MCHC (RBC) [Mass/Vol] 32.9 g/dL Normal 29.9-35.2 The [facility] Comment on above: Performed By: #### C BC ####[facility] [place] Kfnvsoramg12[address] [place] [phone]. Farhat Leal MCV (RBC) [Entitic vol] 94.6 fL Critically high 80.0-94.0 The [facility] Comment on above: Performed By: #### C BC ####[facility] [place] Uxhdposxls[address] [place], [place] [address]Dr. Madelynlorri Leal MONO # 1.2 103/ul Critically high 0.3-0.8 The [facility] Comment on above: Performed By: #### C BC ####[facility] Bpiiajmbpm[address] [place], [place] [address]Dr. Madelynlorri Leal Monocytes/100 WBC (Bld) 14.1 % Critically high 1.7-12.0 The [facility] Comment on above: Performed By: #### C BC ####[facility] Dgiqgsofmh[address] [place], [place] [address]Dr. Farhat Leal NEUT # 4.4 103/ul Normal 1.4-6.5 The [facility] Comment on above: Performed By: #### C BC ####[facility] [place] C[address] [place], [place] [id number]. Madelynlorri Leal Neutrophils/100 WBC (Bld) 54.2 % Normal 43.0-75.0 The [facility] Comment on above: Performed By: #### C BC ####[facility] [address]pa[address] [place], [place] [phone]. Farhat Leal Platelet mean volume (Bld) [Entitic vol] 9.9 fL Normal 9.5-13.5 The [facility] Comment on above: Performed By: #### C BC ####[facility] Gghzbcmoqe66[address] [place] [phone]. Farhat Leal PLT 224 103/ul Normal 150-450 [facility] Comment on above: Performed By: #### C BC ####[facility] [place] Nbzughrmqn3960 [place] [phone]. Farhat Leal RBC 4.11 106/ul Critically low 4.70-6.10 The [facility] Comment on above: Performed By: #### C BC ####[facility] [place] Dlnipaghhe8442 [place] [phone]. Farhat Elvis WBC 8.2 103/ul Normal 4.0-11.0 The [facility] Comment on above: Performed By: #### C BC ####[facility] [place] Thlbzqapkh[address] [place], [place] [address]Dr. Farhat Leal PROF CHEM 8 (BAS METB)on Anion gap [Moles/Vol] 9.6 mmol/L Normal [facility] Comment on above: Performed By: #### B MP ####[facility] Rqcxuylfvy[address] [place], [place] [address]Dr. Farhat Leal Calcium [Mass/Vol] 8.6 mg/dL Normal 8.5-10.1 [facility] Comment on above: Performed By: #### B MP ####[facility] Kn[address]vpkbxy[address] [place], [place] [address]Dr. Farhat Leal Chloride [Moles/Vol] 94 mmol/L Critically low 98-107 The [facility] Comment on above: Performed By: #### B MP ####[facility] Eqzmghukbz8[address] [place] [phone]. Farhat Leal CO2 [Moles/Vol] 28.1 mmol/L Normal 21.0-32.0 [facility] Comment on above: Performed By: #### B MP ####[facility] [place] Xfgnhcjjoa3[address] [place] [phone]. Farhat Leal Creatinine [Mass/Vol] 1.91 mg/dL Critically high 0.70-1.30 [facility] Comment on above: Performed By: #### B MP ####[facility] [place] Njohakcywc[address] [place] [phone]. Farhat Leal EGFR-AF NICARAGUAN 42 mL/min/1.73m2 Critically low >=60 [facility] Comment on above: Performed By: #### B MP ####[facility] [place] Wnwfxbahnr9231 [place] [phone]. Farhat Leal EGFR-NON AF NICARAGUAN 34 mL/min/1.73m2 Critically low >=60 [facility] Comment on above: Performed By: #### B MP ####[facility] [place] Mccnkxiegl4884 [place] [phone]. Farhat Leal Glucose [Mass/Vol] 314 mg/dL Critically high 74-106 [facility] Comment on above: Performed By: #### B MP ####[facility] [place] Ojfwxauede60[address] [place] [address]Dr. Farhat Leal Potassium [Moles/Vol] 4.7 mmol/L Normal 3.5-5.1 [facility] Comment on above: Performed By: #### B MP ####[facility] [place] Heylecgfeh[address] [place], [place] [address]Dr. Farhat Leal Sodium [Moles/Vol] 127 mmol/L Critically low 136-145 Th [facility] Comment on above: Performed By: #### B MP ####[facility] [place] Quzqhmlzai14[address] [place] [phone]. Farhat Leal Urea nitrogen [Mass/Vol] 79.0 mg/dL Critically high 7.0-18.0 [facility] Comment on above: Result Comment: repe ated Performed By: #### B MP ####[facility] [place] Qtvagorrgk0650 [place] [phone]. Farhat Leal Urea nitrogen/Creatinine [Mass ratio] 41.4 mg/mg Normal [facility] Comment on above: Performed By: #### B MP ####[facility] [place] Ctxrqgocdx25[address] [place] [address]Dr. Farhat Leal PTT HEPARIN MONITORon 2021 aPTT Coag (Bld) [Time] 42.7 s Normal 39.5-54.2 Th [facility] Comment on above: Performed By: #### P TTHEP ####[facility] J[address]woyocfg[address] [place] [address]Dr. Farhat Elvis aPTT Coag (Bld) [Time] 56.7 s Critically high 39.5-54. 2 [facility] Comment on above: Performed By: #### P TTHEP ####[facility] B[address]awamvpp[address] [place], [place] [address]Dr. Farhat Leal CBC AUTO DIFFon 09-23-2021 BASO # 0.1 103/ul Normal 0.0-0.1 The [facility] Comment on above: Performed By: #### C BC ####[facility] Ndosssxihs[address] [place], [place] [address]Dr. Farhat Leal Basophils/100 WBC (Bld) 0.6 % Normal 0.2-2.0 The [facility] Comment on above: Performed By: #### C BC ####[facility] Mmmqhjhgcp[address] [place], [place] [address]Dr. Farhat Leal EO # 0.2 103/ul Normal 0.0-0.7 The [facility] Comment on above: Performed By: #### C BC ####[facility] Irdqmrivcu[address] [place], [place] [address]Dr. Farhat Leal Eosinophils/100 WBC (Bld) 2.6 % Normal 0.9-7.0 The [facility] Comment on above: Performed By: #### C BC ####[facility] [address]lsacfwpf[address] [place], [place] [address]Dr. Farhat Leal Erythrocyte distribution width (RBC) [Ratio] 12.4 % Normal 11.0-15.0 The [facility] Comment on above: Performed By: #### C BC ####[facility] Hddeictjjy[address] [place], [place] [address]Dr. Farhat Leal Hematocrit (Bld) [Volume fraction] 38.4 % Critically low 42.0-54.0 The [facility] Comment on above: Performed By: #### C BC ####[facility] Pqubffwvss025[address] [place] [phone]. Farhat Leal Hemoglobin (Bld) [Mass/Vol] 12.8 g/dL Critically low 14.0-18.0 The [facility] Comment on above: Performed By: #### C BC ####[facility] Teeoxwsywt7686 [place] [phone]. Farhat Leal IG # 0.06 10e3/ul Critically high 0.00-0.03 [facility] Comment on above: Performed By: #### C BC ####[facility] [place] Mbsbstfxla5700 [place] [phone]. Farhat Leal IG % 0.8 % Critically high 0.0-0.5 The [facility] Comment on above: Performed By: #### C BC ####[facility] Bxrhxxalpb99[address] [place] [address]Dr. Farhat Leal LYMPH # 1.5 103/ul Normal 1.2-3.8 The [facility] Comment on above: Performed By: #### C BC ####[facility] Dvajcjsxeq27[address] [place] [address]Dr. Farhat Leal Lymphocytes/100 WBC (Bld) 19.7 % Critically low 20.5-60.0 The [facility] Comment on above: Performed By: #### C BC ####[facility] S[address]ryxkxscf4[address] [place] [address]Dr. Farhat Leal MANUAL DIFF REQ NO Normal The [facility] Comment on above: Performed By: #### C BC ####[facility] [place] Nkgcguetlm7836 [place] [address]Dr. Farhat Leal MCH (RBC) [Entitic mass] 31.6 pg Normal 25.9-34.0 The [facility] Comment on above: Performed By: #### C BC ####[facility] Fngrsndnmg03[address] [place] [address]Dr. Farhat Leal MCHC (RBC) [Mass/Vol] 33.3 g/dL Normal 29.9-35.2 The [facility] Comment on above: Performed By: #### C BC ####[facility] Mclgiebnhx5798 [place] [phone]. Farhat Leal MCV (RBC) [Entitic vol] 94.8 fL Critically high 80.0-94.0 The [facility] Comment on above: Performed By: #### C BC ####[facility] [place] Mklkjhdbft0078 [place] [phone]. Farhat Leal MONO # 1.0 103/ul Critically high 0.3-0.8 The [facility] Comment on above: Performed By: #### C BC ####[facility] [place] Kriunzaczg9294 [place] [phone]. Farhat Leal Monocytes/100 WBC (Bld) 13.0 % Critically high 1.7-12.0 The [facility] [place] Comment on above: Performed By: #### C BC ####[facility] Htmvybbyei2886 [place] [phone]. Farhat Leal NEUT # 4.9 103/ul Normal 1.4-6.5 The [facility] Comment on above: Performed By: #### C BC ####[facility] [place] Iojnmvaaiz7119 [place] [phone]. Farhat Leal Neutrophils/100 WBC (Bld) 63.3 % Normal 43.0-75.0 The [facility] Comment on above: Performed By: #### C BC ####[facility] Efatmcvphr9089 [place] [phone]. Farhat Leal Platelet mean volume (Bld) [Entitic vol] 10.7 fL Normal 9.5-13.5 The [facility] [place] Comment on above: Performed By: #### C BC ####[facility] Bkswsmvnjb7268 [place] [phone]. Farhat Leal PLT 205 103/ul Normal 150-450 The [facility] Comment on above: Performed By: #### C BC ####[facility] Dglvnkfzol4068 [place] [phone]. Farhat Leal RBC 4.05 106/ul Critically low 4.70-6.10 The [facility] Comment on above: Performed By: #### C BC ####[facility] [place] Adkbwcmhzb7476 [place] [phone]. Madelynlorri Elvis WBC 7.7 103/ul Normal 4.0-11.0 [facility] Comment on above: Performed By: #### C BC ####[facility] Nhofzvqcge24[address] [place] [address]Dr. Farhat Leal PROF CHEM 8 (BAS METB)on Anion gap [Moles/Vol] 15.5 mmol/L Normal [facility] Comment on above: Performed By: #### B MP ####[facility] Tdbgqhbglm2388 [place] [address]Dr. Farhat Leal Calcium [Mass/Vol] 9.1 mg/dL Normal 8.5-10.1 [facility] Comment on above: Performed By: #### B MP ####[facility] Qtnkxdreys[address] [place], [place] [address]Dr. Farhat Leal Chloride [Moles/Vol] 92 mmol/L Critically low 98-107 [facility] Comment on above: Performed By: #### B MP ####[facility] Aozatwupcc[address] [place], [place] [address]Dr. Farhat Leal CO2 [Moles/Vol] 28.5 mmol/L Normal 21.0-32.0 [facility] Comment on above: Performed By: #### B MP ####[facility] Okqmngausm[address] [place], [place] [address]Dr. Farhat Leal Creatinine [Mass/Vol] 1.84 mg/dL Critically high 0.70-1.30 [facility] Comment on above: Performed By: #### B MP ####[facility] Yzhgyuwigm[address] [place], [place] [address]Dr. Farhat Leal EGFR-AF NICARAGUAN 44 mL/min/1.73m2 Critically low >=60 The [facility] Comment on above: Performed By: #### B MP ####[facility] Eqzubkoegu[address] [place], [place] [address]Dr. Farhat Leal EGFR-NON AF NICARAGUAN 36 mL/min/1.73m2 Critically low >=60 The [facility] Comment on above: Performed By: #### B MP ####[facility] Jxcqgzacbb0[address] [place] [address]Dr. Madelynlorri Elvis Glucose [Mass/Vol] 267 mg/dL Critically high 74-106 [facility] Comment on above: Performed By: #### B MP ####[facility] Sjdurmpwyn8762 [place] [address]Dr. Farhat Leal Potassium [Moles/Vol] 5.0 mmol/L Normal 3.5-5.1 [facility] Comment on above: Performed By: #### B MP ####[facility] Kjfebosjwf[address] [place], [place] [address]Dr. Farhat Leal Sodium [Moles/Vol] 131 mmol/L Critically low 136-145 Th [facility] Comment on above: Performed By: #### B MP ####[facility] Dialkfornu[address] [place], [place] [address]Dr. Farhat Leal Urea nitrogen [Mass/Vol] 76.0 mg/dL Critically high 7.0-18.0 [facility] Comment on above: Performed By: #### B MP ####[facility] Dihavnyhax[address] [place], [place] [address]Dr. Farhat Leal Urea nitrogen/Creatinine [Mass ratio] 41.3 mg/mg Normal [facility] Comment on above: Performed By: #### B MP ####[facility] Jcvwkwszcl[address] [place], [place] [address]Dr. Farhat Leal PTT HEPARIN MONITORon 2021 aPTT Coag (Bld) [Time] 57.2 s Critically high 39.5-54. 2 [facility] Comment on above: Performed By: #### P TTHEP ####[facility] U[address]wpv[address] [place], [place] [address]Dr. Farhat Leal aPTT Coag (Bld) [Time] 74.7 s Critically high 39.5-54. 2 [facility] Comment on above: Result Comment: repe ated Performed By: #### P TTHEP ####[facility] Zqdntajkfe[address] [place], [place] [address]Dr. Farhat Leal aPTT Coag (Bld) [Time] 45.5 s Normal 39.5-54.2 Th e [facility] Comment on above: Performed By: #### P TTHEP ####[facility] Tcxwdmgmzm1548 [place] [phone]. Farhat Leal CBC AUTO DIFFon 09-22-2021 BASO # 0.1 103/ul Normal 0.0-0.1 [facility] Comment on above: Performed By: #### C BC ####[facility] [place] Wwuafolhuc6102 [place] [phone]. Farhat Leal Basophils/100 WBC (Bld) 0.7 % Normal 0.2-2.0 [facility] Comment on above: Performed By: #### C BC ####[facility] [place] Wotdohmfms[address] [place], [place] [id number]. Farhat Leal EO # 0.3 103/ul Normal 0.0-0.7 [facility] Comment on above: Performed By: #### C BC ####[facility] [place] Nthvsrftqr[address] [place], [place] [id number]. Farhat Leal Eosinophils/100 WBC (Bld) 3.2 % Normal 0.9-7.0 The [facility] [place] Comment on above: Performed By: #### C BC ####[facility] [place] Rpmxkeyvll[address] [place], [place] [id number]. Farhat Leal Erythrocyte distribution width (RBC) [Ratio] 12.5 % Normal 11.0-15.0 The [facility] [place] Comment on above: Performed By: #### C BC ####[facility] [place] Rxyvuxuleq[address] [place], [place] [id number]. Farhat Leal Hematocrit (Bld) [Volume fraction] 40.5 % Critically low 42.0-54.0 The [facility] [place] Comment on above: Performed By: #### C BC ####[facility] [place] Myxvpdivdj[address] [place], [place] [id number]. Farhat Leal Hemoglobin (Bld) [Mass/Vol] 13.4 g/dL Critically low 14.0-18.0 The [facility] [place] Comment on above: Performed By: #### C BC ####[facility] [place] Fllwcrjgge101[address] [place] [phone]. Farhat Leal IG # 0.11 10e3/ul Critically high 0.00-0.03 [facility] Comment on above: Performed By: #### C BC ####[facility] [place] Ekspljfexk0418 [place] [phone]. Farhat Leal IG % 1.3 % Critically high 0.0-0.5 [facility] Comment on above: Performed By: #### C BC ####[facility] [place] Pkhyynvcvm0[address] [place] [address]Dr. Farhat Leal LYMPH # 1.7 103/ul Normal 1.2-3.8 [facility] Comment on above: Performed By: #### C BC ####[facility] [place] Mlrdvtgdfb[address] [place], [place] [address]Dr. Farhat Leal Lymphocytes/100 WBC (Bld) 19.6 % Critically low 20.5-60.0 [facility] Comment on above: Performed By: #### C BC ####[facility] [place] Evbwyvhrkd64[address] [place] [address]Dr. Farhat Leal MANUAL DIFF REQ NO Normal [facility] Comment on above: Performed By: #### C BC ####[facility] [place] Oxedrqbhid[address] [place], [place] [address]Dr. Farhat Leal MCH (RBC) [Entitic mass] 31.1 pg Normal 25.9-34.0 [facility] Comment on above: Performed By: #### C BC ####[facility] [place] Vonrrikiwa[address] [place], [place] [address]Dr. Farhat Leal MCHC (RBC) [Mass/Vol] 33.1 g/dL Normal 29.9-35.2 The [facility] [place] Comment on above: Performed By: #### C BC ####[facility] [place] Wkpvwelcdy99[address] [place] [address]Dr. Farhat Leal MCV (RBC) [Entitic vol] 94.0 fL Normal 80.0-94.0 [facility] Comment on above: Performed By: #### C BC ####[facility] [place] Hrridynqpa1488 [place] [phone]. Farhat Leal MONO # 1.1 103/ul Critically high 0.3-0.8 The [facility] Comment on above: Performed By: #### C BC ####[facility] [place] Wftoxnngtn0841 [place] [phone]. Farhat Leal Monocytes/100 WBC (Bld) 12.7 % Critically high 1.7-12.0 The [facility] [place] Comment on above: Performed By: #### C BC ####[facility] [place] Dpoanmqjal7376 [place] [phone]. Farhat Leal NEUT # 5.3 103/ul Normal 1.4-6.5 The [facility] [place] Comment on above: Performed By: #### C BC ####[facility] [place] Dxsxveettq0298 [place] [phone]. Farhat Leal Neutrophils/100 WBC (Bld) 62.5 % Normal 43.0-75.0 The [facility] [place] Comment on above: Performed By: #### C BC ####[facility] [place] Sxqocwjsre5185 [place] [phone]. Farhat Leal Platelet mean volume (Bld) [Entitic vol] 10.1 fL Normal 9.5-13.5 The [facility] [place] Comment on above: Performed By: #### C BC ####[facility] [place] Yagsjkyalf7100 [place] [phone]. Farhat Leal PLT 220 103/ul Normal 150-450 The [facility] [place] Comment on above: Performed By: #### C BC ####[facility] [place] Ttdwqvqhhw9732 [place] [phone]. Farhat Leal RBC 4.31 106/ul Critically low 4.70-6.10 The [facility] Comment on above: Performed By: #### C BC ####[facility] [place] Azhoaexsyl6202 [place] [phone]. Farhat Leal WBC 8.4 103/ul Normal 4.0-11.0 The [facility] [place] Comment on above: Performed By: #### C BC ####[facility] [place] Explautevh7730 [place] [address]Dr. Farhat Leal PROF CHEM 8 (BAS METB)on Anion gap [Moles/Vol] 15.5 mmol/L Normal [facility] Comment on above: Performed By: #### B MP ####[facility] [place] Nsugmelylp[address] [place] [address]Dr. Farhat Leal Calcium [Mass/Vol] 8.9 mg/dL Normal 8.5-10.1 [facility] Comment on above: Performed By: #### B MP ####[facility] [place] Nyycxzbbgs[address] [place], [place] [address]Dr. Farhat Leal Chloride [Moles/Vol] 92 mmol/L Critically low 98-107 [facility] Comment on above: Performed By: #### B MP ####[facility] [place] Snprwkbrqt[address] [place], [place] [address]Dr. Farhat Leal CO2 [Moles/Vol] 25.7 mmol/L Normal 21.0-32.0 [facility] Comment on above: Performed By: #### B MP ####[facility] [place] Zajrmotvvh[address] [place], [place] [address]Dr. Farhat Leal Creatinine [Mass/Vol] 1.85 mg/dL Critically high 0.70-1.30 [facility] Comment on above: Performed By: #### B MP ####[facility] [place] Ebpogfdbkd9[address] [place], [place] [address]Dr. Farhat Leal EGFR-AF NICARAGUAN 43 mL/min/1.73m2 Critically low >=60 [facility] Comment on above: Performed By: #### B MP ####[facility] [place] Jmobjwohhr[address] [place], [place] [address]Dr. Farhat Leal EGFR-NON AF NICARAGUAN 36 mL/min/1.73m2 Critically low >=60 [facility] Comment on above: Performed By: #### B MP ####[facility] [place] Txezdamafb70[address] [place], [place] [address]Dr. Farhat Leal Glucose [Mass/Vol] 410 mg/dL Critically high 74-106 [facility] Comment on above: Performed By: #### B MP ####[facility] [place] Ocrkjbwzak88[address] [place] [address]Dr. Farhat Leal Potassium [Moles/Vol] 5.2 mmol/L Critically high 3.5-5.1 [facility] Comment on above: Performed By: #### B MP ####[facility] [place] Lgpmiolbme99[address] [place], [place] [address]Dr. Farhat Leal Sodium [Moles/Vol] 128 mmol/L Critically low 136-145 Th [facility] Comment on above: Performed By: #### B MP ####[facility] [place] Ywxnmgxpsh7[address] [place], [place] [address]Dr. Farhat Leal Urea nitrogen [Mass/Vol] 75.0 mg/dL Critically high 7.0-18.0 [facility] Comment on above: Performed By: #### B MP ####[facility] [place] Kzjzmxwlve2[address] [place], [place] [address]Dr. Farhat Leal Urea nitrogen/Creatinine [Mass ratio] 40.5 mg/mg Normal [facility] Comment on above: Performed By: #### B MP ####[facility] [place] Wlxgahyhcx4[address] [place], [place] [address]Dr. Farhat Leal PTT HEPARIN MONITORon 2021 aPTT Coag (Bld) [Time] 51.2 s Normal 39.5-54.2 Th [facility] Comment on above: Performed By: #### P TTHEP ####[facility] [place] Vaiv[address]zjes[address] [place], [place] [address]Dr. Farhat Leal aPTT Coag (Bld) [Time] 55.6 s Critically high 39.5-54. 2 [facility] Comment on above: Performed By: #### P TTHEP ####[facility] [place] Jfzgvjsxbe5586[address] [place], [place] [address]Dr. Farhat Leal aPTT Coag (Bld) [Time] 46.1 s Normal 39.5-54.2 Th [facility] Comment on above: Performed By: #### P TTHEP ####[facility] [place] Ezeioczkrr24[address] [place], [place] [address]Dr. Farhat Leal aPTT Coag (Bld) [Time] 53.8 s Normal 39.5-54.2 Th e [facility] Comment on above: Performed By: #### P TTHEP ####[facility] [place] Xeaoflfion[address] [place] [address]Dr. Farhat Leal CBC AUTO DIFFon 09-21-2021 BASO # 0.1 103/ul Normal 0.0-0.1 [facility] Comment on above: Performed By: #### C BC ####[facility] [place] Xogntxnkzx8383 [place] [address]Dr. Farhat Elvis Basophils/100 WBC (Bld) 0.8 % Normal 0.2-2.0 [facility] Comment on above: Performed By: #### C BC ####[facility] [place] Cdwtrwtlvc[address] [place], [place] [address]Dr. Farhat Leal EO # 0.4 103/ul Normal 0.0-0.7 [facility] Comment on above: Performed By: #### C BC ####[facility] [place] Ccvrdiuujb[address] [place], [place] [address]Dr. Farhat Leal Eosinophils/100 WBC (Bld) 4.3 % Normal 0.9-7.0 [facility] Comment on above: Performed By: #### C BC ####[facility] [place] Lquaxffcoz[address] [place], [place] [address]Dr. Farhat Leal Erythrocyte distribution width (RBC) [Ratio] 12.5 % Normal 11.0-15.0 The [facility] [place] Comment on above: Performed By: #### C BC ####[facility] [place] Ihdzahcfls[address] [place], [place] [address]Dr. Farhat Leal Hematocrit (Bld) [Volume fraction] 40.8 % Critically low 42.0-54.0 The [facility] Comment on above: Performed By: #### C BC ####[facility] [place] Fbjgyxmlev[address] [place], [place] [address]Dr. Farhat Leal Hemoglobin (Bld) [Mass/Vol] 13.5 g/dL Critically low 14.0-18.0 [facility] Comment on above: Performed By: #### C BC ####[facility] [place] Sspmpobylm4874 [place] [phone]. Farhat Leal IG # 0.10 10e3/ul Critically high 0.00-0.03 [facility] Comment on above: Performed By: #### C BC ####[facility] [place] Woxxlhwhhe9027 [place] [phone]. Farhat Leal IG % 1.2 % Critically high 0.0-0.5 [facility] Comment on above: Performed By: #### C BC ####[facility] Pdjwteekyb3655 [place] [address]Dr. Farhat Leal LYMPH # 1.3 103/ul Normal 1.2-3.8 [facility] Comment on above: Performed By: #### C BC ####[facility] Jafboihhak88[address] [place] [address]Dr. Farhat Leal Lymphocytes/100 WBC (Bld) 15.4 % Critically low 20.5-60.0 [facility] Comment on above: Performed By: #### C BC ####[facility] Apqkzphdho4312 [place] [address]Dr. Farhat Leal MANUAL DIFF REQ NO Normal The [facility] Comment on above: Performed By: #### C BC ####[facility] [place] Vphwiadafc[address] [place], [place] [address]Dr. Farhat Leal MCH (RBC) [Entitic mass] 31.0 pg Normal 25.9-34.0 [facility] Comment on above: Performed By: #### C BC ####[facility] [place] Bfnpwqupxk[address] [place], [place] [address]Dr. Farhat Leal MCHC (RBC) [Mass/Vol] 33.1 g/dL Normal 29.9-35.2 The [facility] Comment on above: Performed By: #### C BC ####[facility] [place] Xsknknxtdl[address] [place], [place] [address]Dr. Farhat Leal MCV (RBC) [Entitic vol] 93.8 fL Normal 80.0-94.0 [facility] Comment on above: Performed By: #### C BC ####[facility] Aqcumxumby6470 [place] [phone]. Farhat Leal MONO # 1.2 103/ul Critically high 0.3-0.8 The [facility] Comment on above: Performed By: #### C BC ####[facility] [place] Mfcfqzicmr5886 [place] [phone]. Farhat Leal Monocytes/100 WBC (Bld) 13.6 % Critically high 1.7-12.0 The [facility] [place] Comment on above: Performed By: #### C BC ####[facility] [place] Mgdkqkjhwb3815 [place] [phone]. Farhat Leal NEUT # 5.5 103/ul Normal 1.4-6.5 The [facility] [place] Comment on above: Performed By: #### C BC ####[facility] Ivwrqgibbr9171 [place] [address]Dr. Farhat Leal Neutrophils/100 WBC (Bld) 64.7 % Normal 43.0-75.0 The [facility] [place] Comment on above: Performed By: #### C BC ####[facility] [place] Jpnohvtumj9143 [place] [phone]. Farhat Leal Platelet mean volume (Bld) [Entitic vol] 9.8 fL Normal 9.5-13.5 The [facility] [place] Comment on above: Performed By: #### C BC ####[facility] [place] Cenwdbeeve9566 [place] [phone]. Farhat Leal PLT 206 103/ul Normal 150-450 The [facility] Comment on above: Performed By: #### C BC ####[facility] Jeildsmvzu4790 [place] [phone]. Farhat Leal RBC 4.35 106/ul Critically low 4.70-6.10 [facility] Comment on above: Performed By: #### C BC ####[facility] [place] Allntsezmq0775 [place] [phone]. Farhat Leal WBC 8.4 103/ul Normal 4.0-11.0 The [facility] [place] Comment on above: Performed By: #### C BC ####[facility] [place] Sonhfckcwd8944 [place] [phone]. Farhat Leal PROF CHEM 8 (BAS METB)on Anion gap [Moles/Vol] 12.3 mmol/L Normal Th [facility] Comment on above: Performed By: #### B MP ####[facility] Somjqowpeu7214 [place] [address]Dr. Farhat Leal Calcium [Mass/Vol] 8.6 mg/dL Normal 8.5-10.1 [facility] Comment on above: Performed By: #### B MP ####[facility] [place] Cgkunqbhsz2902 [place] [address]Dr. Farhat Leal Chloride [Moles/Vol] 94 mmol/L Critically low 98-107 [facility] Comment on above: Performed By: #### B MP ####[facility] [place] Iwfmmwqdxd2373 [place] [address]Dr. Farhat Leal CO2 [Moles/Vol] 30.8 mmol/L Normal 21.0-32.0 [facility] Comment on above: Performed By: #### B MP ####[facility] [place] Atudjbpatf[address] [place], [place] [address]Dr. Farhat Leal Creatinine [Mass/Vol] 1.99 mg/dL Critically high 0.70-1.30 [facility] Comment on above: Performed By: #### B MP ####[facility] [place] Hljraxmuqq[address] [place], [place] [address]Dr. Farhat Leal EGFR-AF NICARAGUAN 40 mL/min/1.73m2 Critically low >=60 [facility] Comment on above: Performed By: #### B MP ####[facility] [place] Nlzymxxypj4332 [place] [address]Dr. Farhat Leal EGFR-NON AF NICARAGUAN 33 mL/min/1.73m2 Critically low >=60 [facility] Comment on above: Performed By: #### B MP ####[facility] [place] Heyihuretz[address] [place], [place] [address]Dr. Farhat Leal Glucose [Mass/Vol] 264 mg/dL Critically high 74-106 [facility] Comment on above: Performed By: #### B MP ####[facility] [place] Zwahztdxiu5499 [place] [address]Dr. Farhat Leal Potassium [Moles/Vol] 5.1 mmol/L Normal 3.5-5.1 [facility] Comment on above: Performed By: #### B MP ####[facility] [place] Kkjkgjsiac[address] [place], [place] [address]Dr. Farhat Leal Sodium [Moles/Vol] 132 mmol/L Critically low 136-145 Th [facility] Comment on above: Performed By: #### B MP ####[facility] Wgismsmdbk[address] [place], [place] [address]Dr. Farhat Leal Urea nitrogen [Mass/Vol] 72.0 mg/dL Critically high 7.0-18.0 [facility] Comment on above: Performed By: #### B MP ####[facility] [place] Qrvtyuzlft86[address] [place], [place] [address]Dr. Farhat Leal Urea nitrogen/Creatinine [Mass ratio] 36.2 mg/mg Normal [facility] Comment on above: Performed By: #### B MP ####[facility] Lkdspnlbfd13[address] [place], [place] [address]Dr. Farhat Leal PTT HEPARIN MONITORon 2021 aPTT Coag (Bld) [Time] 45.3 s Normal 39.5-54.2 [facility] Comment on above: Performed By: #### P TTHEP ####[facility] [place] Ccdpwbonvd[address] [place], [place] [address]Dr. Farhat Leal aPTT Coag (Bld) [Time] 68.0 s Critically high 39.5-54. 2 [facility] Comment on above: Performed By: #### P TTHEP ####[facility] Augeimtwqt[address] [place], [place] [address]Dr. Farhat Leal aPTT Coag (Bld) [Time] 69.4 s Critically high 39.5-54. 2 [facility] Comment on above: Performed By: #### P TTHEP ####[facility] Bxjbshdpvv[address] [place], [place] [address]Dr. Farhat Leal aPTT Coag (Bld) [Time] 53.5 s Normal 39.5-54.2 Th [facility] Comment on above: Performed By: #### P TTHEP ####[facility] Nqcuwttklo4994 [place] [address]Dr. Farhat Leal aPTT Coag (Bld) [Time] 126.9 s Critically high 39.5-54. 2 [facility] Comment on above: Performed By: #### P TTHEP ####[facility] Apyoisvdba[address] [place], [place] [address]Dr. Farhat Leal CBC AUTO DIFFon 09-20-2021 BASO # 0.1 103/ul Normal 0.0-0.1 [facility] Comment on above: Performed By: #### C BC ####[facility] Lnpnxbquhy[address] [place], [place] [address]Dr. Farhat Leal Basophils/100 WBC (Bld) 0.7 % Normal 0.2-2.0 [facility] Comment on above: Performed By: #### C BC ####[facility] Yecmywnkpf[address] [place], [place] [address]Dr. Farhat Leal EO # 0.2 103/ul Normal 0.0-0.7 [facility] Comment on above: Performed By: #### C BC ####[facility] Oemnzvbtzp[address] [place], [place] [address]Dr. Farhat Leal Eosinophils/100 WBC (Bld) 3.2 % Normal 0.9-7.0 The [facility] Comment on above: Performed By: #### C BC ####[facility] Rbsdlhvomy[address] [place], [place] [address]Dr. Farhat Leal Erythrocyte distribution width (RBC) [Ratio] 12.4 % Normal 11.0-15.0 [facility] Comment on above: Performed By: #### C BC ####[facility] Phjjffiusj[address] [place], [place] [address]Dr. Farhat Leal Hematocrit (Bld) [Volume fraction] 40.1 % Critically low 42.0-54.0 [facility] Comment on above: Performed By: #### C BC ####[facility] Jelxkbxjzn4939 [place] [phone]. Farhat Leal Hemoglobin (Bld) [Mass/Vol] 13.4 g/dL Critically low 14.0-18.0 [facility] Comment on above: Performed By: #### C BC ####[facility] Aqloukvida8221 [place] [phone]. Farhat Leal IG # 0.08 10e3/ul Critically high 0.00-0.03 [facility] Comment on above: Performed By: #### C BC ####[facility] Wnyjkxvifn9082 [place] [address]Dr. Farhat Leal IG % 1.1 % Critically high 0.0-0.5 [facility] Comment on above: Performed By: #### C BC ####[facility] Zkwihlgqae5865 [place] [address]Dr. Farhat Leal LYMPH # 1.3 103/ul Normal 1.2-3.8 The [facility] Comment on above: Performed By: #### C BC ####[facility] Nlmhvpokqw8463 [place] [address]Dr. Farhat Leal Lymphocytes/100 WBC (Bld) 17.3 % Critically low 20.5-60.0 [facility] Comment on above: Performed By: #### C BC ####[facility] Ip[address]jbnxnp4[address] [place] [address]Dr. Farhat Leal MANUAL DIFF REQ NO Normal [facility] Comment on above: Performed By: #### C BC ####[facility] [place] Crpnalsfaz0800 [place] [phone]. Farhat Leal MCH (RBC) [Entitic mass] 31.2 pg Normal 25.9-34.0 [facility] Comment on above: Performed By: #### C BC ####[facility] [place] Fuklpbfmvw7504 [place] [phone]. Farhat Leal MCHC (RBC) [Mass/Vol] 33.4 g/dL Normal 29.9-35.2 [facility] Comment on above: Performed By: #### C BC ####[facility] [place] Zugpfviqfs4700 [place] [phone]. Farhat Leal MCV (RBC) [Entitic vol] 93.3 fL Normal 80.0-94.0 [facility] [place] Comment on above: Performed By: #### C BC ####[facility] [place] Jxjhapfnsy4995 [place] [phone]. Farhat Leal MONO # 0.9 103/ul Critically high 0.3-0.8 [facility] Comment on above: Performed By: #### C BC ####[facility] [place] Cnhflqxpza1805 [place] [phone]. Farhat Leal Monocytes/100 WBC (Bld) 12.4 % Critically high 1.7-12.0 [facility] Comment on above: Performed By: #### C BC ####[facility] [place] [address] [place], [place] [id number]. Farhat Leal NEUT # 4.7 103/ul Normal 1.4-6.5 [facility] Comment on above: Performed By: #### C BC ####[facility] [place] Kzweidptxv7827 [place] [phone]. Farhat Leal Neutrophils/100 WBC (Bld) 65.3 % Normal 43.0-75.0 [facility] [place] Comment on above: Performed By: #### C BC ####[facility] Bakbtwihbh8018 [place] [phone]. Farhat Leal Platelet mean volume (Bld) [Entitic vol] 9.9 fL Normal 9.5-13.5 [facility] [place] Comment on above: Performed By: #### C BC ####[facility] [place] Cvearlndxp1722 [place] [phone]. Farhat Leal PLT 180 103/ul Normal 150-450 [facility] [place] Comment on above: Performed By: #### C BC ####[facility] [place] Foanfsrggf6582 [place] [phone]. Farhat Leal RBC 4.30 106/ul Critically low 4.70-6.10 [facility] Comment on above: Performed By: #### C BC ####[facility] [place] Nxqjrgqufz8426 [place] [address]Dr. Farhat Elvis WBC 7.2 103/ul Normal 4.0-11.0 [facility] [place] Comment on above: Performed By: #### C BC ####[facility] [place] Ozhwhoubyt[address] [place], [place] [address]Dr. Farhat Leal PTT HEPARIN MONITORon 2021 aPTT Coag (Bld) [Time] 26.7 s Critically low 39.5-54.2 [facility] [place] Comment on above: Performed By: #### P TTHEP ####[facility] [place] [address]rururx[address] [place], [place] [address]Dr. Farhat Leal aPTT Coag (Bld) [Time] 121.0 s Critically high 39.5-54. 2 [facility] [place] Comment on above: Performed By: #### P TTHEP ####[facility] [place] Mwysnvdote[address] [place], [place] [address]Dr. Farhat Elvis aPTT Coag (Bld) [Time] 27.6 s Critically low 39.5-54.2 [facility] [place] Comment on above: Performed By: #### P TTHEP ####[facility] [place] Qqfgwiljbs[address] [place], [place] [address]Dr. Madelynlorri Elvis aPTT Coag (Bld) [Time] 139.0 s Critically high 39.5-54. 2 [facility] [place] Comment on above: Performed By: #### P TTHEP ####[facility] [place] Ppgajmxjrw[address] [place], [place] [address]Dr. Farhat Leal CBC AUTO DIFFon 09-19-2021 BASO # 0.0 103/ul Normal 0.0-0.1 [facility] [place] Comment on above: Performed By: #### C BC ####[facility] [place] Ppbsncndkv[address] [place], [place] [address]Dr. Farhat Leal Basophils/100 WBC (Bld) 0.5 % Normal 0.2-2.0 [facility] [place] Comment on above: Performed By: #### C BC ####[facility] [place] Ynqwtktyqm8650 [place] [phone]. Farhat Leal EO # 0.2 103/ul Normal 0.0-0.7 [facility] [place] Comment on above: Performed By: #### C BC ####[facility] [place] Dgitdcjbni9844 [place] [phone]. Farhat Leal Eosinophils/100 WBC (Bld) 2.6 % Normal 0.9-7.0 [facility] [place] Comment on above: Performed By: #### C BC ####[facility] [place] Kkcqhectyv65[address] [place] [address]Dr. Farhat Leal Erythrocyte distribution width (RBC) [Ratio] 12.5 % Normal 11.0-15.0 [facility] [place] Comment on above: Performed By: #### C BC ####[facility] [place] W[address]tkxlpy[address] [place], [place] [address]Dr. Farhat Leal Hematocrit (Bld) [Volume fraction] 39.2 % Critically low 42.0-54.0 [facility] [place] Comment on above: Performed By: #### C BC ####[facility] [place] Ltrbrcwtiw76[address] [place] [address]Dr. Farhat Leal Hemoglobin (Bld) [Mass/Vol] 13.3 g/dL Critically low 14.0-18.0 [facility] [place] Comment on above: Performed By: #### C BC ####[facility] [place] Zqigrcxlpd7720 [place] [phone]. Farhat Leal IG # 0.08 10e3/ul Critically high 0.00-0.03 [facility] Comment on above: Performed By: #### C BC ####[facility] [place] Dbumieklwa9797 [place] [phone]. Farhat Leal IG % 0.9 % Critically high 0.0-0.5 [facility] Comment on above: Performed By: #### C BC ####[facility] [place] Ggtoouuhce[address] [place], [place] [address]Dr. Farhat Leal LYMPH # 1.5 103/ul Normal 1.2-3.8 [facility] [place] Comment on above: Performed By: #### C BC ####[facility] [place] Kuwguylnrp4860 [place] [phone]. Farhat Leal Lymphocytes/100 WBC (Bld) 17.2 % Critically low 20.5-60.0 [facility] [place] Comment on above: Performed By: #### C BC ####[facility] [place] Avngzygccm2053 [place] [phone]. Farhat Leal MANUAL DIFF REQ NO Normal [facility] Comment on above: Performed By: #### C BC ####[facility] [place] Ptnpxddrfq3824 [place] [address]Dr. Farhat Elvis MCH (RBC) [Entitic mass] 31.7 pg Normal 25.9-34.0 [facility] [place] Comment on above: Performed By: #### C BC ####[facility] [place] Adkbpgjwiw[address] [place], [place] [address]Dr. Farhat Elvis MCHC (RBC) [Mass/Vol] 33.9 g/dL Normal 29.9-35.2 [facility] [place] Comment on above: Performed By: #### C BC ####[facility] [place] Kifnktnnvj5043 [place] [address]Dr. Farhat Elvis MCV (RBC) [Entitic vol] 93.3 fL Normal 80.0-94.0 [facility] [place] Comment on above: Performed By: #### C BC ####[facility] [place] Zhydwjibnl3836 [place] [address]Dr. Madelynlorri Elvis MONO # 1.2 103/ul Critically high 0.3-0.8 [facility] Comment on above: Performed By: #### C BC ####[facility] [place] Sttkiyubrb14[address] [place] [address]Dr. Farhat Elvis Monocytes/100 WBC (Bld) 13.7 % Critically high 1.7-12.0 [facility] [place] Comment on above: Performed By: #### C BC ####[facility] [place] Ziwaicinwa[address] [place], [place] [address]Dr. Farhat Leal NEUT # 5.5 103/ul Normal 1.4-6.5 [facility] Comment on above: Performed By: #### C BC ####[facility] [place] Qtsnbqiyef2744 [place] [phone]. Farhat Leal Neutrophils/100 WBC (Bld) 65.1 % Normal 43.0-75.0 [facility] Comment on above: Performed By: #### C BC ####[facility] Qiteohckcb7949 [place] [phone]. Farhat Leal Platelet mean volume (Bld) [Entitic vol] 9.6 fL Normal 9.5-13.5 [facility] Comment on above: Performed By: #### C BC ####[facility] [place] Nkanjoegjz3327 [place] [phone]. Farhat Leal PLT 163 103/ul Normal 150-450 [facility] Comment on above: Performed By: #### C BC ####[facility] Frnwajkdwh5766 [place] [address]Dr. Farhat Leal RBC 4.20 106/ul Critically low 4.70-6.10 [facility] Comment on above: Performed By: #### C BC ####[facility] [place] Umudquqrah5419 [place] [phone]. Farhat Leal WBC 8.4 103/ul Normal 4.0-11.0 [facility] Comment on above: Performed By: #### C BC ####[facility] Czysfjmnku5406 [place] [address]Dr. Farhat Elvis POINT OF CARE GLUCOSEon Glucose [Mass/Vol] 300 mg/dL Critically high 74-106 [facility] Comment on above: Performed By: #### P OCGLUC ####[facility] Bbnzyqyiwp2525 [place] [address]Dr. Farhat Leal POTASSIUMon 09-19-2021 Potassium [Moles/Vol] 4.9 mmol/L Normal 3.5-5.1 [facility] Comment on above: Performed By: #### K ####[facility] Fpqnhkraxr[address] [place], [place] [address]Dr. Farhat Leal PTT HEPARIN MONITORon 2021 aPTT Coag (Bld) [Time] 23.4 s Critically low 39.5-54.2 [facility] [place] Comment on above: Result Comment: repe ated Performed By: #### P TTHEP ####[facility] [place] Zqtmvpbrru[address] [place], [place] [address]Dr. Farhat Leal aPTT Coag (Bld) [Time] 101.2 s Critically high 39.5-54. 2 [facility] Comment on above: Performed By: #### P TTHEP ####[facility] [place] Gxgmhmlodw[address] [place], [place] [address]Dr. Farhat Leal aPTT Coag (Bld) [Time] 81.0 s Critically high 39.5-54. 2 [facility] [place] Comment on above: Result Comment: Test Repeated. Critical Value Verified Performed By: #### P TTHEP ####[facility] Qfdgqdeurb69[address] [place], [place] [address]Dr. Farhat Elvis CBC AUTO DIFFon 09-18-2021 BASO # 0.0 103/ul Normal 0.0-0.1 [facility] Comment on above: Performed By: #### C BC ####[facility] [place] Lkhzdpqimw[address] [place], [place] [address]Dr. Farhat Elvis Basophils/100 WBC (Bld) 0.4 % Normal 0.2-2.0 [facility] [place] Comment on above: Performed By: #### C BC ####[facility] [place] Wkttscmytr[address] [place], [place] [address]Dr. Farhat Leal EO # 0.1 103/ul Normal 0.0-0.7 [facility] [place] Comment on above: Performed By: #### C BC ####[facility] [place] Zqfcwhczgx7[address] [place], [place] [address]Dr. Madelynlorri Leal Eosinophils/100 WBC (Bld) 0.8 % Critically low 0.9-7.0 [facility] Comment on above: Performed By: #### C BC ####[facility] [place] Kxjaxxrkow24[address] [place], [place] [address]Dr. Farhat Leal Erythrocyte distribution width (RBC) [Ratio] 12.4 % Normal 11.0-15.0 [facility] Comment on above: Performed By: #### C BC ####[facility] [place] Femyfxehmm5327 [place] [address]Dr. Farhat Leal Hematocrit (Bld) [Volume fraction] 41.7 % Critically low 42.0-54.0 [facility] Comment on above: Performed By: #### C BC ####[facility] [place] Gawmljkfhp[address] [place] [address]Dr. Farhat Leal Hemoglobin (Bld) [Mass/Vol] 14.1 g/dL Normal 14.0-18.0 [facility] Comment on above: Performed By: #### C BC ####[facility] Vobtywexmn5194 [place] [address]Dr. Farhat Leal IG # 0.06 10e3/ul Critically high 0.00-0.03 [facility] Comment on above: Performed By: #### C BC ####[facility] Xoavdugqrb2680 [place] [address]Dr. Farhat Elvis IG % 0.6 % Critically high 0.0-0.5 [facility] Comment on above: Performed By: #### C BC ####[facility] Khjgdzxrmf[address] [place], [place] [address]DrSkylar Farhat Leal LYMPH # 0.6 103/ul Critically low 1.2-3.8 [facility] Comment on above: Performed By: #### C BC ####[facility] Cifdghfamb8465 [place] [address]DrSkylar Farhat Elvis Lymphocytes/100 WBC (Bld) 6.5 % Critically low 20.5-60.0 [facility] Comment on above: Performed By: #### C BC ####[facility] Trllffmrjt3104 [place] [address]DrSkylar Farhat Elvis MANUAL DIFF REQ NO Normal [facility] Comment on above: Performed By: #### C BC ####[facility] [place] Qnhkqivggr6212 [place] [address]DrSkylar Farhat Elvis MCH (RBC) [Entitic mass] 31.6 pg Normal 25.9-34.0 [facility] Comment on above: Performed By: #### C BC ####[facility] Kixokqcdnk7796 [place] [phone]. Farhat Leal MCHC (RBC) [Mass/Vol] 33.8 g/dL Normal 29.9-35.2 [facility] [place] Comment on above: Performed By: #### C BC ####[facility] [place] Mmyacbpale[address] [place] [phone] Farhat Elvis MCV (RBC) [Entitic vol] 93.5 fL Normal 80.0-94.0 [facility] Comment on above: Performed By: #### C BC ####[facility] Osjnscftka3316 [place] [phone] Leal MONO # 1.0 103/ul Critically high 0.3-0.8 [facility] Comment on above: Performed By: #### C BC ####[facility] [place] Czbifxdhao5[address] [place], [place] [address]Dr. Farhat Leal Monocytes/100 WBC (Bld) 10.4 % Normal 1.7-12.0 [facility] Comment on above: Performed By: #### C BC ####[facility] [place] V[address]pgxqps[address] [place], [place] [address]DrSkylar Leal NEUT # 7.8 103/ul Critically high 1.4-6.5 [facility] Comment on above: Performed By: #### C BC ####[facility] [place] C[address]imzrinjz[address] [place], [place] [address]Dr. Farhat Leal Neutrophils/100 WBC (Bld) 81.3 % Critically high 43.0-75.0 [facility] [place] Comment on above: Performed By: #### C BC ####[facility] [place] R[address]rrhb[address] [place], [place] [id number] Leal Platelet mean volume (Bld) [Entitic vol] 9.9 fL Normal 9.5-13.5 [facility] [place] Comment on above: Performed By: #### C BC ####[facility] [place] G[address]qrv[address] [place], [place] [address]DrSkylar Leal PLT 169 103/ul Normal 150-450 [facility] [place] Comment on above: Performed By: #### C BC ####[facility] [place] Hxobjpmfoy4219 [place] [phone]. Farhat Elvis RBC 4.46 106/ul Critically low 4.70-6.10 [facility] Comment on above: Performed By: #### C BC ####[facility] [place] Bulqoenlcc6115 [place] [phone]. Madelynlorri Leal WBC 9.6 103/ul Normal 4.0-11.0 [facility] [place] Comment on above: Performed By: #### C BC ####[facility] [place] Llvtjynjim5187 [place] [phone]. Farhat Leal BASO # 0.0 103/ul Normal 0.0-0.1 [facility] [place] Comment on above: Performed By: #### C BC ####[facility] [place] Chsmxjfsir2636 [place] [phone]. Farhat Leal Basophils/100 WBC (Bld) 0.4 % Normal 0.2-2.0 [facility] Comment on above: Performed By: #### C BC ####[facility] [place] Ziiyhmbytp1235 [place] [phone]. Madelynlorri Leal EO # 0.1 103/ul Normal 0.0-0.7 [facility] Comment on above: Performed By: #### C BC ####[facility] [place] Nmksxvucqm2014 [place] [phone]. Farhat Leal Eosinophils/100 WBC (Bld) 1.1 % Normal 0.9-7.0 [facility] [place] Comment on above: Performed By: #### C BC ####[facility] [place] Owxbavgwfh3861 [place] [phone]. Madelynlorri Leal Erythrocyte distribution width (RBC) [Ratio] 12.6 % Normal 11.0-15.0 [facility] [place] Comment on above: Performed By: #### C BC ####[facility] [place] Fxrxxjqknz3166 [place] [phone]. Farhat Leal Hematocrit (Bld) [Volume fraction] 40.8 % Critically low 42.0-54.0 [facility] [place] Comment on above: Performed By: #### C BC ####[facility] Qoymexsmvh1919 [place] [address]Dr. Farhat Leal Hemoglobin (Bld) [Mass/Vol] 13.6 g/dL Critically low 14.0-18.0 [facility] Comment on above: Performed By: #### C BC ####[facility] Vtwxatgvxn5878 [place] [address]Dr. Farhat Leal IG # 0.08 10e3/ul Critically high 0.00-0.03 [facility] Comment on above: Performed By: #### C BC ####[facility] Tseinbhxvh3666 [place] [address]Dr. Farhat Leal IG % 0.9 % Critically high 0.0-0.5 [facility] Comment on above: Performed By: #### C BC ####[facility] [place] Zyatafmbdr1272 [place] [address]Dr. Farhat Leal LYMPH # 0.8 103/ul Critically low 1.2-3.8 [facility] Comment on above: Performed By: #### C BC ####[facility] Scnvuifhjo6400 [place] [address]Dr. Farhat Leal Lymphocytes/100 WBC (Bld) 8.7 % Critically low 20.5-60.0 [facility] Comment on above: Performed By: #### C BC ####[facility] Oubeayejdt9905 [place] [address]Dr. Farhat Leal MANUAL DIFF REQ NO Normal [facility] Comment on above: Performed By: #### C BC ####[facility] Vsdesvzpeq7466 [place] [address]Dr. Farhat Leal MCH (RBC) [Entitic mass] 31.6 pg Normal 25.9-34.0 [facility] Comment on above: Performed By: #### C BC ####[facility] Umfhlfwnwl7020 [place] [address]Dr. Farhat Elvis MCHC (RBC) [Mass/Vol] 33.3 g/dL Normal 29.9-35.2 [facility] Comment on above: Performed By: #### C BC ####[facility] Ajlhohrdqh3508 [place] [phone]. Farhat Leal MCV (RBC) [Entitic vol] 94.9 fL Critically high 80.0-94.0 [facility] Comment on above: Performed By: #### C BC ####[facility] [place] Iuinnlpapy8172 [place] [phone] Farhat Leal MONO # 1.0 103/ul Critically high 0.3-0.8 [facility] Comment on above: Performed By: #### C BC ####[facility] Tywcxrqnni8768 [place] [phone]. Farhat Elvis Monocytes/100 WBC (Bld) 11.3 % Normal 1.7-12.0 [facility] Comment on above: Performed By: #### C BC ####[facility] [address]nu[address] [place], [place] [address]Dr. Farhat Leal NEUT # 6.9 103/ul Critically high 1.4-6.5 [facility] Comment on above: Performed By: #### C BC ####[facility] Cttrbtmnrv2842 [place] [phone]. Farhat Elvis Neutrophils/100 WBC (Bld) 77.6 % Critically high 43.0-75.0 [facility] Comment on above: Performed By: #### C BC ####[facility] Pjljrtevge8939 [place] [phone]. Farhat Elvis Platelet mean volume (Bld) [Entitic vol] 9.7 fL Normal 9.5-13.5 [facility] Comment on above: Performed By: #### C BC ####[facility] [facility] [address] [place] [phone]. Farhat Leal PLT 171 103/ul Normal 150-450 [facility] Comment on above: Performed By: #### C BC ####[facility] Iif[address]cxbg[address] [place] [phone]. Farhat Leal RBC 4.30 106/ul Critically low 4.70-6.10 The [facility] Comment on above: Performed By: #### C BC ####[facility] [address]qbhvgt4[address] [place] [phone]. Farhat Leal WBC 8.9 103/ul Normal 4.0-11.0 [facility] Comment on above: Performed By: #### C BC ####[facility] [address]xzvqq01[address] [place], [place] [address]Am. Farhat Leal Covid-19 PCR (CVDTB)on SARS-CoV-2 (COVID-19) RNA JOSH+probe Ql (Unsp spec) Not detected Normal NOT DETECTED The [facility] Comment on above: Result Comment: When diagnostic [...] for this test is supported by the [place] of Health and Human Service's declaration that [...] Performed By: #### C VDTBH ####[facility] Aszkppqbtj[address] [place] [phone]. Farhat Leal PROF 14(COMP METB)on 022 Albumin [Mass/Vol] 2.6 g/dL Critically low 3.4-5.0 e [facility] Comment on above: Performed By: #### C MP ####[facility] Fq[address]ifimtn[address] [place] [phone]. Farhat Leal Albumin/Globulin [Mass ratio] 0.7 {ratio} Normal The [facility] Comment on above: Performed By: #### C MP ####[facility] Blrdqslptu[address] [place] [phone]. Farhat Leal ALP [Catalytic activity/Vol] 88 U/L Normal 46-116 [facility] Comment on above: Performed By: #### C MP ####[facility] Idhjbigzlm86[address] [place], [place] [address]Xt. Farhat Leal ALT [Catalytic activity/Vol] 15 U/L Critically low 16-63 [facility] Comment on above: Performed By: #### C MP ####[facility] Vtyschhgme16[address] [place] [phone]. Farhat Leal Anion gap [Moles/Vol] 11.7 mmol/L Normal Th e [facility] Comment on above: Performed By: #### C MP ####[facility] Cmsbmwvypy3953 [place] [phone]. Farhat Leal AST [Catalytic activity/Vol] 25 U/L Normal 15-37 [facility] Comment on above: Performed By: #### C MP ####[facility] Dmfpjetjxa9197 [place] [phone]. Farhat Leal Bilirubin [Mass/Vol] 0.6 mg/dL Normal 0.2-1.0 The [facility] Comment on above: Performed By: #### C MP ####[facility] Tweibbzelh[address] [place] [phone]. Farhat Leal Calcium [Mass/Vol] 8.9 mg/dL Normal 8.5-10.1 [facility] Comment on above: Performed By: #### C MP ####[facility] Pyveqkmvml8[address] [place] [phone]. Farhat Elal Chloride [Moles/Vol] 93 mmol/L Critically low 98-107 [facility] Comment on above: Performed By: #### C MP ####[facility] Dqmfrifmxj9905 [place] [phone]. Farhat Leal CO2 [Moles/Vol] 28.9 mmol/L Normal 21.0-32.0 The [facility] Comment on above: Performed By: #### C MP ####[facility] Pvpqlgkgto2282 [place] [phone]. Farhat Leal Creatinine [Mass/Vol] 2.09 mg/dL Critically high 0.70-1.30 [facility] Comment on above: Performed By: #### C MP ####[facility] Hzkhywrznu2197 [place], [place] [address]Nd. Farhat Leal EGFR-AF NICARAGUAN 38 mL/min/1.73m2 Critically low >=60 [facility] Comment on above: Performed By: #### C MP ####[facility] Xkgcezpoat20[address] [place] [phone]. Farhat Leal EGFR-NON AF NICARAGUAN 31 mL/min/1.73m2 Critically low >=60 [facility] Comment on above: Performed By: #### C MP ####[facility] Kcgyxwzhdy86[address] [place] [phone]. Farhat Leal Globulin (S) [Mass/Vol] 3.7 g/dL Normal [facility] Comment on above: Performed By: #### C MP ####[facility] Lijzggmdxt9875 [place] [phone]. Farhat Leal Glucose [Mass/Vol] 214 mg/dL Critically high 74-106 T [facility] Comment on above: Performed By: #### C MP ####[facility] Jbpymfvdyg2431 [place] [phone]. Farhat Leal Potassium [Moles/Vol] 5.6 mmol/L Critically high 3.5-5.1 [facility] Comment on above: Performed By: #### C MP ####[facility] Pubkikcypg5013 [place] [phone]. Farhat Leal Protein [Mass/Vol] 6.3 g/dL Critically low 6.4-8.2 Th [facility] Comment on above: Performed By: #### C MP ####[facility] Uofwtsfmzs[address]36 [place] [phone]. Farhat Leal Sodium [Moles/Vol] 128 mmol/L Critically low 136-145 Th [facility] Comment on above: Performed By: #### C MP ####[facility] Guagilizju[address] [place] [phone]. Farhat Leal Urea nitrogen [Mass/Vol] 65.0 mg/dL Critically high 7.0-18.0 [facility] Comment on above: Performed By: #### C MP ####[facility] Qrstwtjtod0838 [place] [phone]. Farhat Elvis Urea nitrogen/Creatinine [Mass ratio] 31.1 mg/mg Normal [facility] Comment on above: Performed By: #### C MP ####[facility] Ljodhsyauu78[address] [place] [phone]. Farhat Elvis Albumin [Mass/Vol] 2.5 g/dL Critically low 3.4-5.0 Th [facility] Comment on above: Performed By: #### T MYRIAM, CMP ####[facility] [address] [place], [place] [address]Dr. Farhat Leal Albumin/Globulin [Mass ratio] 0.7 {ratio} Normal [facility] Comment on above: Performed By: #### T MYRIAM, CMP ####[facility] [address]afv[address] [place], [place] [address]Dr. Farhat Elvis ALP [Catalytic activity/Vol] 83 U/L Normal 46-116 [facility] Comment on above: Performed By: #### T MYRIAM, CMP ####[facility] Gbs[address]bs[address] [place], [place] [address]Dr. Farhat Leal ALT [Catalytic activity/Vol] 16 U/L Normal 16-63 [facility] Comment on above: Performed By: #### T MYRIAM, CMP ####[facility] Jcycfdfwlo[address] [place], [place] [address]Dr. Farhat Leal Anion gap [Moles/Vol] 9.7 mmol/L Normal [facility] Comment on above: Performed By: #### T SH, CMP ####[facility] Khfpxzycya[address] [place], [place] [address]Dr. Farhat Leal AST [Catalytic activity/Vol] 27 U/L Normal 15-37 [facility] Comment on above: Performed By: #### T MYRIAM, CMP ####[facility] Veqrhkbibk[address] [place] [address]Dr. Farhat Leal Bilirubin [Mass/Vol] 0.5 mg/dL Normal 0.2-1.0 The [facility] Comment on above: Performed By: #### T SH, CMP ####[facility] Qniizmrard[address] [place], [place] [address]Dr. Farhat Leal Calcium [Mass/Vol] 8.8 mg/dL Normal 8.5-10.1 [facility] Comment on above: Performed By: #### T SH, CMP ####[facility] T[address]ajiscyw[address] [place], [place] [address]Dr. Farhat Leal Chloride [Moles/Vol] 95 mmol/L Critically low 98-107 [facility] Comment on above: Performed By: #### T SH, CMP ####[facility] Gwunhgvlgu[address] [place], [place] [address]Dr. Farhat Leal CO2 [Moles/Vol] 30.5 mmol/L Normal 21.0-32.0 The [facility] Comment on above: Performed By: #### T SH, CMP ####[facility] Bq[address]mrzizxb[address] [place], [place] [address]Dr. Farhat Leal Creatinine [Mass/Vol] 2.18 mg/dL Critically high 0.70-1.30 [facility] Comment on above: Performed By: #### T SH, CMP ####[facility] Znxxegbrda[address] [place], [place] [address]Dr. Farhat Leal EGFR-AF NICARAGUAN 36 mL/min/1.73m2 Critically low >=60 The [facility] Comment on above: Performed By: #### T SH, CMP ####[facility] Ncnilqvyhh[address] [place], [place] [address]Dr. Farhat Leal EGFR-NON AF NICARAGUAN 30 mL/min/1.73m2 Critically low >=60 The [facility] Comment on above: Performed By: #### T SH, CMP ####[facility] Tnvmroppdh[address] [place], [place] [address]Dr. Madelynlorri Leal Globulin (S) [Mass/Vol] 3.5 g/dL Normal The [facility] Comment on above: Performed By: #### T SH, CMP ####[facility] Evmspschlu[address] [place], [place] [address]Dr. Farhat Leal Glucose [Mass/Vol] 141 mg/dL Critically high 74-106 T [facility] Comment on above: Performed By: #### T SH, CMP ####[facility] Ctervvfpbt[address] [place], [place] [address]Dr. Farhat Leal Potassium [Moles/Vol] 5.2 mmol/L Critically high 3.5-5.1 [facility] Comment on above: Performed By: #### T SH, CMP ####[facility] Nxucuqsuxt[address] [place], [place] [address]Dr. Farhat Leal Protein [Mass/Vol] 6.0 g/dL Critically low 6.4-8.2 Th [facility] Comment on above: Performed By: #### T MYRIAM, CMP ####[facility] Pvrpyqjjay[address] [place], [place] [address]Dr. Farhat Leal Sodium [Moles/Vol] 130 mmol/L Critically low 136-145 Th [facility] Comment on above: Performed By: #### T SH, CMP ####[facility] Jzyywqobai[address] [place], [place] [address]Dr. Farhat Leal Urea nitrogen [Mass/Vol] 63.0 mg/dL Critically high 7.0-18.0 [facility] Comment on above: Performed By: #### T SH, CMP ####[facility] Kaxrxdulpe[address] [place], [place] [address]Dr. Farhat Leal Urea nitrogen/Creatinine [Mass ratio] 28.9 mg/mg Normal [facility] Comment on above: Performed By: #### T SH, CMP ####[facility] Jvdwxzclft[address] [place], [place] [address]Dr. Farhat Leal PROTIMEon 09-18-2021 INR Coag (PPP) [Relative time] 1.06 {INR} Normal [facility] Comment on above: Performed By: #### P T, PTT ####[facility] Qamndurliz[address] [place], [place] [address]DrSkylar Leal INR GUIDELINES SEE BELOW Normal [facility] Comment on above: Result Comment: MALINA RED INR: 2.0 - 3.0 CONDITIONS NOT LISTED BELOW 2.5 - 3.5 FOR PROSTHETIC HEART VALVE REPLACEMENT 2.5 - 3.5 RECURRENT THROMBOSIS Performed By: #### P T, PTT ####[facility] Ixbmiuvdfy8241 [place], [place] [address]Wg. Farhat Lela PT Coag (PPP) [Time] 11.4 s Normal 9.0-11.6 [facility] Comment on above: Performed By: #### P T, PTT ####[facility] Kwzggxdoay5336 [place], [place] [address]PrSkylar Leal PTTon 09-18-2021 aPTT Coag (Bld) [Time] 27.9 s Normal 22.3-36.2 [facility] Comment on above: Performed By: #### P T, PTT ####[facility] Azpaqqnlna9176 [place] [phone] Leal TSHon 09-18-2021 TSH 7.099 uIU/mL Critically high 0.358-3.740 [facility] Comment on above: Performed By: #### T SH, CMP ####[facility] Izvucktikh[address] [place] [address]DrSkylar Leal US SALOME DOP LEG RTon 09-19-19 US SALOME DOP LEG RT Normal [facility] XR CHEST 1 Von 09-18-2021 XR CHEST 1 V Normal [facility] XR HIP RT 2 3V W PELVISon XR HIP RT 2 3V W PELVIS Normal [facility] Vital Signs Date Time Vital Sign Value Performing Clinician Facility 03-18-2023 13:37-0500 Body temperature 98.01 [degF] [employer] Work Phone: [facility] 03-18-2023 13:37-0500 Diastolic blood pressure 64 mm[Hg] [employer] Work Phone: [facility] 03-18-2023 13:37-0500 Heart rate 72 /min Ni Petznick DO Work Phone: [facility] 03-18-2023 13:37-0500 SaO2% (BldA) [Mass fraction] 98 % Ni Petznick DO Work Phone: [facility] 03-18-2023 13:37-0500 Systolic blood pressure 118 mm[Hg] Nining Whiteznick DO Work Phone: [facility] 07-20-2022 13:35-0400 Body temperature 97.4 [degF] DO Devon Ball Work Phone: [facility] 07-20-2022 13:35-0400 Diastolic blood pressure 50 mm[Hg] DO Devon Ball Work Phone: [facility] 07-20-2022 13:35-0400 Heart rate 67 /min DO Devon Ball Work Phone: [facility] 07-20-2022 13:35-0400 Respiratory rate 20 /min DO Devon Ball Work Phone: [facility] 07-20-2022 13:35-0400 Systolic blood pressure 98 mm[Hg] DO Devon Ball Work Phone: [facility] 06-29-2022 14:46-0400 Body height 193.04 cm DO Devon Ball Work Phone: [facility] 02-26-2022 13:11-0500 Body temperature 96.6 [degF] Hina Peterson MD Work Phone: [facility] 02-26-2022 13:11-0500 Diastolic blood pressure 75 mm[Hg] Hina Peterson MD Work Phone: [facility] 02-26-2022 13:11-0500 Heart rate 75 /min Hina Peterson MD Work Phone: [facility] 02-26-2022 13:11-0500 Systolic blood pressure 88 mm[Hg] Hina Peterson MD Work Phone: [facility] 02-05-2022 08:29-0500 Body temperature 96.69 [degF] [facility] Work Phone: [facility] 02-05-2022 08:29-0500 Diastolic blood pressure 42 mm[Hg] [facility] Work Phone: [facility] 02-05-2022 08:29-0500 Heart rate 79 /min [facility] Work Phone: [facility] 02-05-2022 08:29-0500 SaO2% (BldA) [Mass fraction] 100 % [facility] Work Phone: [facility] 02-05-2022 08:29-0500 Systolic blood pressure 72 mm[Hg] [facility] Work Phone: [facility] 01-12-2022 11:00-0500 Diastolic blood pressure 54 mm[Hg] Alissa Major [employer] Work Phone: [facility] 01-12-2022 11:00-0500 Heart rate 88 /min Alissa Major [employer]ILDLIFE ENFORC[employer] MAJOR.[employer] Work Phone: [facility] 01-12-2022 11:00-0500 SaO2% (BldA) [Mass fraction] 93 % Alissa Major [employer]ILDLIFE ENFORCEMENT MAJOR.[employer] Work Phone: [facility] 01-12-2022 11:00-0500 Systolic blood pressure 96 mm[Hg] Alissa Major [employer]ILDLIFE ENFORCEMENT MAJOR.[employer] Work Phone: [facility] 01-12-2022 10:12-0500 Body temperature 97.9 [degF] Alissa Major WILDLIFE ENFORCEMENT MAJOR.[employer] Work Phone: [facility] 01-12-2022 10:12-0500 Respiratory rate 18 /min Alissa Major [employer]IL[employer]IFE ENFORCEMENT MAJOR.[employer] Work Phone: [facility] 11-17-2021 15:59-0400 Body height 193 cm No Reeder DO Work Phone: [facility] 11-17-2021 15:59-0400 Body weight 111.58 kg No Reeder DO Work Phone: [facility] 11-17-2021 15:59-0400 Diastolic blood pressure 59 mm[Hg] No Reeder DO Work Phone: [facility] 11-17-2021 15:59-0400 Heart rate 86 /min No Reeder DO Work Phone: [facility] 11-17-2021 15:59-0400 SaO2% (BldA) [Mass fraction] 97 % No Reeder DO Work Phone: [facility] 11-17-2021 15:59-0400 Systolic blood pressure 104 mm[Hg] No Reeder DO Work Phone: [facility] Encounters Encounter Date Encounter Type Care Provider Facility Start: 09-02-2023 End: 09-02-2023 ambulatory MIL[facility] Start: 06-17-2023 End: 06-17-2023 ambulatory NI CABRERA Not Available Start: 05-19-2023 End: 05-19-2023 ambulatory CA[facility] Start: 04-11-2023 End: 04-11-2023 ambulatory Devon Moreira Other [employer] Other Start: 04-11-2023 Telephone encounter Devon NUNEZ [facility] Start: 03-18-2023 End: 03-18-2023 ambulatory NI CABRERA Not Available Start: 03-18-2023 End: 03-18-2023 Office outpatient visit 25 minutes Ni Cabrera DO Work Phone: [facility] [phone] Comment on above: 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 ([facility]) (Primary Dx); 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 ([facility]); 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); Type 1 diabetes mellitus with hypoglycemia and without coma (CMS/HCC); 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 ([facility]/HCC) Start: 02-17-2023 End: 02-17-2023 ambulatory Devon Moreira Other [employer] Other Start: 02-17-2023 Telephone encounter Devon Manzo [facility] Start: 01-14-2023 End: 01-14-2023 ambulatory Devon Moreira Other [employer] Other Start: 01-14-2023 Sbsq nursing facil c are/day minor complj 15 min Devon Rico [facility] Start: 12-10-2022 End: 12-10-2022 ambulatory Devon Moreira Other [employer] Other Start: 12-10-2022 Sbsq nursing facil c are/day minor complj 15 min Devon Rico [facility] Start: 11-12-2022 End: 11-12-2022 ambulatory Devon Moreira Other [employer] Other Start: 11-12-2022 Sbsq nursing facil c are/day minor complj 15 min [facility] Start: 10-16-2022 Refill Asia Pike MD Work Phone: [facility] Comment on above: Med Change Request Start: 10-12-2022 End: 10-12-2022 ambulatory Devon Moreira Other [employer] Other Start: 10-12-2022 Telephone encounter Devon Moreira [facility] Start: 10-08-2022 End: 10-08-2022 ambulatory Devon Moreira Other [employer] Other Start: 10-08-2022 Sbsq nursing facil c are/day new problem 25 min [facility] Start: 09-22-2022 [facility] Comment on above: Rx Refills Start: 09-10-2022 End: 09-10-2022 ambulatory Devon Moreira Other [employer] Other Start: 09-10-2022 Sbsq nursing facil c are/day new problem 25 min [facility] Start: 09-09-2022 End: 09-09-2022 ambulatory [facility] Start: 08-06-2022 End: 08-06-2022 ambulatory Devon Moreira Other [employer] Other Start: 08-06-2022 Sbsq nursing facil c are/day new problem 25 min Devon Moreira [facility] Start: 07-22-2022 End: 07-22-2022 ambulatory Devon Moreira Other [employer] Other Start: 07-22-2022 Telephone encounter [facility] Start: 07-20-2022 End: 07-20-2022 ambulatory Sadia Luisey Facility:[facility] Start: 07-20-2022 End: 07-20-2022 ambulatory DO Devon Moreira Work Phone: [facility] Work Phone: Start: 07-20-2022 End: 07-20-2022 Discharged Recurring DO Devon Moreira Work Phone: [facility] Work Phone: Start: 07-13-2022 End: 07-13-[address] DEVON MOREIRA Facility:[facility] Start: 07-10-2022 End: 07-10-[address] DEVON MOREIRA Facility:[facility] Start: 07-03-2022 End: 07-03-[address] DEVON MOREIRA Facility:[facility] Start: 06-26-2022 End: 06-26-[address] DEVON MOREIRA Facility:[facility] Start: 06-26-2022 End: 06-26-[address] DEVON MOREIRA Facility:[facility] Start: 06-25-2022 End: 06-25-2022 ambulatory Devon Moreira Other [employer] Other Start: 06-25-2022 Sbsq nursing facil c are/day minor complj 15 min Devon Moreira [facility] Start: 06-19-2022 End: 06-19-[address] DEVON MOREIRA Facility:[facility] Start: 06-15-2022 End: 07-15-2022 ambulatory SHAIKH Kate MURRAY Facility:[facility] Start: 06-12-2022 End: 06-12-[address] DOCTOR WALSH Facility:[facility] Start: 06-05-2022 Sbsq nursing facil c are/day new problem 25 min Devon Moreira [facility] Start: 06-05-2022 End: 06-05-[address] DEVON MOREIRA [facility] [employer] Other Start: 05-29-2022 End: 05-29-[address] DEVON MOREIRA Facility:[facility] Start: 05-22-2022 End: 05-22-[address] DEVON MOREIRA Facility:[facility] Start: 05-20-2022 End: 05-20-[address] DEVON MOREIRA Facility:[facility] Start: 05-18-2022 End: 06-12-2022 ambulatory SHAIKH Kate MURRAY Facility:[facility] Start: 05-15-2022 End: 05-15-[address] DEVON MOREIRA Facility:[facility] Start: 05-13-2022 End: 05-13-2022 ambulatory Van Olivarez APRN.[employer] Work Phone: [facility] Comment on above: results Start: 05-13-2022 E-mail encounter fro m caregiver Van Olivarez APRN.[employer] Work Phone: [facility] Start: 05-08-2022 End: 05-08-[address] DEVON MOREIRA Facility:[facility] Start: 05-07-2022 End: 05-07-2022 ambulatory Devon Moreira Other [employer] Other Start: 05-07-2022 Sbsq nursing facil c are/day new problem 25 min Devon Moreira [facility] Start: 05-06-2022 End: 05-06-2022 ambulatory [...] MOREIRA Facility:[facility] Start: 04-02-2022 ambulatory Van cortes APRN.[employer] Work Phone: [facility] Start: 04-01-2022 End: 04-01-[address] DEVON MOREIRA Facility:[facility] Start: 03-22-2022 Refill Asia Pike MD Work Phone: [facility] Comment on above: Med Change Request Start: 03-21-2022 ambulatory SHAIKH Kate MURRAY Facilit y:[facility] Start: 03-11-2022 End: 03-11-[address] DEVON MOREIRA Facility:[facility] Start: 02-27-2022 Refill Samira Serna [facility] Comment on above: Rx Refills Start: 02-26-2022 End: 02-26-2022 ambulatory DEVON MOREIRA Facility:[facility] Start: 02-26-2022 End: 02-26-2022 Patient encounter [...] Start: 02-05-2022 End: 02-06-2022 ambulatory ARTUR CHEN Facility:[facility] Start: 02-05-2022 End: 02-05-2022 Patient encounter procedure [facility] Work Phone: [facility] Comment on above: Kidney replaced by t ransplant (Primary Dx); 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; 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 Start: 01-26-2022 End: 01-26-[address] DEVON MOREIRA Facility:H1 Start: 01-20-2022 Telephone encounter Van Olivarez APRN.CNP Work Phone: Kidney Medicine [facility] Comment on above: Results Start: 01-19-2022 End: 01-19-[address] DEVON MOREIRA Facility:H1 Start: 01-16-2022 ambulatory SHAIKH Kate MURRAY Facilit y:H1 Start: 01-12-2022 End: 01-12-2022 Subsequent hospital visit by physician Alissa Chavira APRN.SAXOPHONE PLAYER Work Phone: Angio Comment on above: ILIANA (acute kidney in jury) ([facility]) [N17.9] Start: 12-30-2021 End: 12-30-2021 ambulatory Paresh Fonseca MD Work Phone: Infectious Disease Comment on above: MRSA bacteremia (Arabella munira Dx); Diabetic foot ulcer with osteomyelitis (HCC) Start: 12-30-2021 End: 12-30-2021 Telemedicine consultation with patient Paresh Fonseca MD Work Phone: [facility] Start: 12-29-2021 End: 12-29-[address] [...] Start: 12-08-2021 Orders Only Artur Burger ry WILDLIFE ENFORCEMENT MAJOR.SAXOPHONE PLAYER Work Phone: Transplant Center Comment on above: Kidney replaced by t ransplant (Primary Dx) Start: 12-07-2021 ambulatory Paresh Fonseca MD Work Phone: [facility] Comment on above: CoPat Start (copat s top 12/27/21) Start: 12-05-2021 Telephone encounter Paresh Fonseca MD Work Phone: Infectious Disease Comment on above: Patient Update (evus held discussion/) Start: 12-01-2021 Follow-up encounter [facility] Provider [facility] Start: 12-01-2021 Patient encounter procedure [facility] Prov ider [facility] Department Start: 11-23-2021 End: 11-28-2021 Evaluation and [...] encounter Start: 11-14-2021 End: 11-15-2021 ambulatory [facility] Facility:H1 Start: 10-24-2021 End: 11-15-2021 ambulatory SHAIKH Kate MURRAY Facility:H1 Start: 10-22-2021 End: 10-23-2021 ambulatory [facility] Facility:H1 Start: 10-06-2021 ambulatory Van cortes WILDLIFE ENFORCEMENT MAJOR.SAXOPHONE PLAYER Work Phone: [facility] Start: 09-30-2021 Refill Asia Pike MD Work Phone: [facility] Comment on above: Refill Request Start: 09-19-2021 End: 09-24-2021 Evaluation and management of inpatient DR PROSPER LEES Facility:H1 Start: 09-18-2021 End: 09-19-[address] DEVON MOREIRA Facility:H1 Start: 07-11-2021 Refill Asia Pike MD Work Phone: [facility] Comment on above: Refill Request Start: 06-05-2021 Telephone encounter Van Olivarez WILDLIFE ENFORCEMENT MAJOR.SAXOPHONE PLAYER Work Phone: [facility] Comment on above: Results Start: 02-05-2021 End: 02-13-2021 ambulatory UNKNOWN PROVIDER Facility:[facility] Procedures Date Procedure Procedure Detail Performing Clinician Start: 05-19-2023 Follow-up visit Follow-up CAITY IBRAHIM Start: 03-18-2023 Hemoglobin glycosyla rk a1c Ni Cabrera DO Work Phone: Start: 02-05-2022 Creatinine other source Asia Pike MD Work Phone: Start: 02-05-2022 Urnls dip stick/tabl et rgnt auto w/o microscopy Asia Pike MD Work Phone: Start: 01-12-2022 Prothrombin time Alissa Chavira APRN.SAXOPHONE PLAYER Work Phone: Start: 12-01-2021 [facility]EM[facility]ER CLIN[facility] CHECK [facility] Provider Start: 11-29-2021 Microscopic examinat ion of blood, culture DR PROSPER LEES Comment on above: Performed By: #### B LDX1 ####[place] [id number] Leal Start: 11-27-2021 Insertion of Infusio n [...] renal transplant KIDNEY TRANSPLANT STATUS Van Krusejaylan WILDLIFE ENFORCEMENT MAJOR.SAXOPHONE PLAYER Work Phone: History of renal transplant Kidney replaced by transplant Artur Chen APRN.SAXOPHONE PLAYER Work Phone: History of renal transplant Kidney replaced by transplant Kidney [facility] Work Phone: History of renal transplant Devon Moreira Other History of renal transplant Kidney replaced by transplant Asia Pike MD Work Phone: History of renal transplant Devon Rico Other Plan of Treatment Date Care Activity Detail Author Start: 06-17-2023 End: 06-17-2023 Patient encounter procedure 06/17/2023 2:15 PM EDT Office Visit [facility] [address] [place] [address] Ni Cabrera, DO [address] [place] [address] [facility] [address] Start: 06-16-2023 Hemoglobin A1c measurement Diabetes: Hemoglobin A1C [facility] Start: 02-26-2023 BP CONTROLLED (<130/80) BP CONTROLLE D (<130/80) [facility] Start: 02-05-2023 BP CONTROLLED (<130/80) BP CONTROLLE D (<130/80) [facility] Start: 01-12-2023 BP CONTROLLED (<130/80) BP CONTROLLE D (<130/80) [facility] Start: 11-17-2022 BP CONTROLLED (<130/80) BP CONTROLLE D (<130/80) [facility] Start: 10-16-2022 Influenza vaccination C [facility] Start: 05-15-2022 Medicare Annual Wellness (AWV) Medicare Annual Wellness (AWV) [facility] Start: 04-08-2022 BP CONTROLLED (<130/80) BP CONTROLLE D (<130/80) [facility] Start: 02-15-2022 ADVANCE DIRECTIVE DISCUSSION ADVANCE DIRECTIVE DISCUSSION [facility] Start: 02-15-2022 DEPRESSION ASSESSMENT DEPRESSION ASS ESSMENT [facility] Start: 02-05-2022 COVID-19 VACCINE (5 - Yung risk series) COVID-19 VACCINE (5 - Yung risk series) [facility] Start: 11-27-2021 COVID-19 VACCINE (4 - Booster for Yung series) COVID-19 VACCINE (4 - Booster for Yung series) [facility] Start: 11-04-2021 Hemoglobin A1c/Hemoglobin.total in Blood HBA1C [facility] Start: 10-16-2021 Influenza vaccination C [facility] Start: 03-26-2021 COVID-19 VACCINE (3 - Yung risk 3-dose series) COVID-19 VACCINE (3 - Yung risk 3-dose series) [facility] Start: 03-26-2021 COVID-19 VACCINE (3 - Yung risk series) COVID-19 VACCINE (3 - Yung risk series) [facility] Start: 02-15-2021 ADVANCE DIRECTIVE DISCUSSION ADVANCE DIRECTIVE DISCUSSION [facility] Start: 02-15-2021 DEPRESSION ASSESSMENT DEPRESSION ASS ESSMENT [facility] Start: 01-05-2016 Hepatitis B screening URINE AL BUMIN:CREATININE RATIO [facility] Start: 07-31-2015 Pneumococcal Vaccine : 65+ Years (3 - PCV) Pneumococcal Vaccine: 65+ Years (3 - PCV) [facility] Start: 04-06-2015 Hemoglobin A1c/Hemoglobin.total in Blood HBA1C [facility] Start: 11-22-2010 Hepatitis B surface antibody level LDL CHOLESTEROL [facility] Start: 2009 ADULT PREVNAR-13 ADULT PREVNAR-13 Cl [facility] Start: 2009 PNEUMOVAX AGE 65 AND OVER WITH 5YR LOOKBACK (#1) PNEUMOVAX AGE 65 AND OVER WITH 5YR LOOKBACK (#1) [facility] Start: 1994 SHINGRIX VACCINE (1 of 2) SHINGRIX VACCINE (1 of 2) [facility] Start: 10-18-1963 HEPATITIS A (1 of 2 - Risk 2-dose series) HEPATITIS A (1 of 2 - Risk 2-dose series) [facility] Start: 10-18-1963 Hepatitis A Vaccine (1 of 2 - Risk 2-dose series) Hepatitis A Vaccine (1 of 2 - Risk 2-dose series) [facility] Start: 10-18-1963 SHINGRIX VACCINE (1 of 2) SHINGRIX VACCINE (1 of 2) [facility] Start: 10-18-1963 Urine microalbumin profile [facility] Start: 1962 ANNUAL PCP TEAM PLC CONTROLS ENGINEER MATTHEW DISEASE VISIT ANNUAL PCP TEAM CHRONIC DISEASE VISIT [facility] Start: 1956 Adult depression screening assessment DEPRESSION SCREENING [facility] Start: 1954 3 comp foot exam completed DIABETIC FOOT EXAM [facility] Start: 1954 Glaucoma screening Diabetes: R etinopathy Screening [facility] Start: 1954 Hepatitis C antibody , confirmatory test DILATED RETINAL EXAM [facility] Start: 1950 Pneumococcal Vaccine : 65+ (1 - PCV) Pneumococcal Vaccine: 65+ (1 - PCV) [facility] Start: 1950 PNEUMOCOCCAL: 65+ (1 - PCV) PNEUMOCOCCAL: 65+ (1 - PCV) [facility] Start: 1945 HEPATITIS A (1 of 2 - Risk 2-dose series) HEPATITIS A (1 of 2 - Risk 2-dose series) [facility] URINALYSIS, REFLEX MICROSCOPIC URINALYSIS, REFLEX MICROSCOPIC Lab Routine Screening for genitourinary condition Ordered: 10/06/2021 [facility] Work Phone: Comment on above: Ordered: 10/06/2021 URINALYSIS, REFLEX MICROSCOPIC URINALYSIS, REFLEX MICROSCOPIC Lab Routine Screening for genitourinary condition Ordered: 04/02/2022 [facility] Work Phone: Comment on above: Ordered: 04/02/2022 End: 11-17-2022 US LEG ARTERIAL PERIPH UNL VAS LAB US LEG ARTERIAL PERIPH UNL VAS LAB Vascular Lab Routine PAD (peripheral artery disease) (HCC) Nonhealing ulcer of heel (HCC) 1 Occurrences starting 11/17/2021 until 11/17/2022 [facility] Work Phone: Comment on above: 1 Occurrences starti ng 11/17/2021 until 11/17/2022 End: 11-17-2022 US LEG VEIN DVT UNL VAS LAB US LEG VEIN DVT UNL VAS LAB Vascular Lab Routine Acute deep vein thrombosis (DVT) of proximal end of right lower extremity (HCC) 1 Occurrences starting 11/17/2021 until 11/17/2022 [facility] Work Phone: Comment on above: 1 Occurrences starti ng 11/17/2021 until 11/17/2022 [facility] [place] [facility]OTHERS [facility] & VAS DANIEL BROTHERS CT & VAS [facility] Immunizations Immunization Date Immunization Notes Care Provider Fa [facility] 12-11-2021 COVID-19 booster vaccine, age 12+ yr, bivalent (PFIZER-BIONTnWay) Paresh Fonseca MD Work Phone: [facility] 12-11-2021 influenza, high-dose , quadrivalent vaccine (FLUZONE HIGH DOSE QUADRIVALENT) Paresh Fonseca MD Work Phone: [facility] 12-11-2021 influenza virus vaccine, unspecified formulation [facility] 10-24-2021 influenza, high dose seasonal, preservative-free Ni Petznick DO Work Phone: [facility] 01-19-2019 influenza, high dose seasonal, preservative-free Ni Petznick DO Work Phone: [facility] 11-25-2017 Seasonal trivalent influenza vaccine, adjuvanted, preservative free Ni Petznick DO Work Phone: [facility] 11-05-2016 influenza, high dose seasonal, preservative-free Ni Petznick DO Work Phone: [facility] 07-30-2014 pneumococcal polysaccharide vaccine, 23 valent Ni Cabrera DO Work Phone: [facility] 03-09-2011 influenza virus vaccine, unspecified formulation Van Olivarez WILDLIFE ENFORCEMENT MAJOR.SAXOPHONE PLAYER Work Phone: [facility] 12-17-2007 influenza virus vaccine, unspecified formulation Van Lard WILDLIFE ENFORCEMENT MAJOR.SAXOPHONE PLAYER Work Phone: [facility] Work Phone: 02-11-2006 influenza virus vaccine, unspecified formulation Van Lard WILDLIFE ENFORCEMENT MAJOR.SAXOPHONE PLAYER Work Phone: [facility] Work Phone: 12-07-2003 influenza virus vaccine, unspecified formulation Van Lard WILDLIFE ENFORCEMENT MAJOR.SAXOPHONE PLAYER Work Phone: [facility] Work Phone: 12-07-2003 pneumococcal polysaccharide vaccine, 23 valent Van Olivarez WILDLIFE ENFORCEMENT MAJOR.SAXOPHONE PLAYER Work Phone: [facility] Work Phone: NEGATED: Highlighted row has not occurred!12-10-2021 COVID-19 booster vaccine, age 12+ yr, bivalent (PFIZER-BIONTnWay) Paresh Fonseca MD Work Phone: [facility] NEGATED: Highlighted row has not occurred!12-10-2021 influenza, high-dose, quadrivalent vaccine (FLUZONE HIGH DOSE QUADRIVALENT) Paresh Fonseca MD Work Phone: [facility] Payers Date Payer Category Payer Medicare MEDICARE MEDICAR E A AND B [id number] 2009-Present [phone] [place] [address] Medicare [id number] [id number] 2009 Medicare [id number] 1.13.159.2.7.3 .[id number] 2009 Unknown [employer] MEDICARE SUPPLEMENT [id number] 2009-Present [phone] [address] [place] [address] Indemnity [id number] [id number] .[id number] 2009 Unknown [id number]. 1.13.159.2.7.3 .557120.315 2009 Unknown [id number] 2.16.8 40.1.742630.19 2009 Unknown [id number] 1959 Medicare [id number] 1959 Self-pay 1944 Unknown [id number] 2.16.840.1.775669.3.579.2.732 1944 Unknown [id number] 2.16.840.1.934865.3.579.2.593 1944 Unknown [id number] 2.16.840.1.887442.3.579.2.593 1944 Unknown [id number] 2.16.840.1.813814.3.579.2.593 1944 Unknown [id number] 2.16.840.1.866637.3.579.2.593 1944 Unknown [id number] 2.16.840.1.053763.3.579.2.593 1944 Unknown [id number] 2.16.840.1.597408.3.579.2.593 1944 Unknown [id number] 2.16.840.1.459103.3.579.2.593 1944 Unknown [id number] 2.16.840.1.281960.3.579.2.593 1944 Unknown [id number] 2.16.840.1.198446.3.579.2.593 1944 Unknown [id number] 2.16.840.1.413460.3.579.2.593 1944 Unknown [id number] 2.16.840.1.310103.3.579.2.593 1944 Unknown [id number] 2.16.840.1.945077.3.579.2.593 1944 Unknown [id number] 2.16.840.1.781430.3.579.2.593 1944 Unknown [id number] 2.16.840.1.604175.3.579.2.593 1944 Unknown [id number] 2.16.840.1.856034.3.579.2.593 1944 Unknown [id number] 2.16.840.1.117634.3.579.2.593 1944 Unknown [id number] 2.16.840.1.804172.3.579.2.593 1944 Unknown [id number] 2.16.840.1.480474.3.579.2.593 1944 Unknown [id number] 2.16.840.1.743971.3.579.2.593 1944 Unknown [id number] 2.16.840.1.405175.3.579.2.593 1944 Unknown [id number] 2.16.840.1.388870.3.579.2.593 1944 Unknown [id number] 2.16.840.1.379835.3.579.2.593 1944 Unknown [id number] 2.16.840.1.958571.3.579.2.593 1944 Unknown [id number] 2.16.840.1.737765.3.579.2.593 1944 Unknown [id number] 2.16.840.1.296263.3.579.2.593 1944 Unknown [id number] 2.16.840.1.327977.3.579.2.593 1944 Unknown [id number] 2.16.840.1.390003.3.579.2.593 1944 Unknown [id number] 2.16.840.1.175896.3.579.2.593 1944 Unknown [id number] 2.16.840.1.225225.3.579.2.593 1944 Unknown [id number] 2.16.840.1.964130.3.579.2.593 1944 Unknown [id number] 2.16.840.1.162207.3.579.2.593 1944 Unknown [id number] 2.16.840.1.818017.3.579.2.593 1944 Unknown [id number] 2.16.840.1.930285.3.579.2.593 1944 Unknown [id number] 2.16.840.1.907222.3.579.2.593 1944 Unknown [id number] 2.16.840.1.127587.3.579.2.593 1944 Unknown [id number] 2.16.840.1.919364.3.579.2.593 1944 Unknown [id number] 2.16.840.1.971549.3.579.2.593 1944 Unknown [id number] 2.16.840.1.878526.3.579.2.593 1944 Unknown [id number] 2.16.840.1.873986.3.579.2.593 1944 Unknown [id number] 2.16.840.1.180277.3.579.2.593 1944 Unknown [id number] 2.16.840.1.950455.3.579.2.593 1944 Unknown [id number] 2.16.840.1.999241.3.579.2.593 1944 Unknown [id number] 2.16.840.1.308441.3.579.2.593 1944 Unknown [id number] 2.16.840.1.218608.3.579.2.593 1944 Unknown [id number] 2.16.840.1.701311.3.579.2.593 1944 Unknown [id number] 2.16.840.1.589978.3.579.2.593 1944 Unknown [id number] 2.16.840.1.438038.3.579.2.125 9 1944 Unknown [id number] 2.16.840.1.753698.3.579.2.125 9 Medicare Medicare Outpatient [id number] [id number] Unknown [id number] 2.16.840.1.073085.3.579.2.593 Unknown [id number] 2.16.840.1.705077.3.579.2.593 Unknown [id number] 2.16.840.1.209671.3.579.2.531 Social History Date Type Detail Facility Start: 03-09-2011 End: 07-07-2022 Tobacco smoking status NHIS Ex-smoker [facility] Work Phone: End: 02-15-1975 History of tobacco use Current smoker [facility] Work Phone: End: 02-15-1975 History of tobacco use Cigarette Smoker [facility] Work Phone: Start: 04-08-2021 End: 01-12-2023 Alcohol intake Current drinker of alcohol (finding) [facility] Start: 1945 Sex Assigned At Not on file [facility] Start: 03-09-2011 End: 10-20-2022 Cigarettes smoked current (pack per day) - Reported 1 [facility] Work Phone: Start: 03-09-2011 End: 02-26-2022 Tobacco use and exposure Smokeless tobacco non-user [facility] Start: 09-25-2021 History SDOH Financial 5 [facility] Start: 09-25-2021 History SDOH Food Worry 1 [facility] Start: 09-25-2021 History SDOH Transpo rt Med 2 [facility] Start: 09-14-2021 End: 01-12-2022 Exposure to SARS-CoV-2 (event) Not sure [facility] Start: 02-26-2022 End: 10-20-2022 Sex Assigned At [facility] Work Phone: Start: 1945 Sex Assigned At Male F [facility] How hard is it for y ou to pay for the very basics like food, housing, medical care, and heating Not hard at all [facility] Work Phone: (I/We) worried shiloh er (my/our) food would run out before (I/we) got money to buy more. Never true [facility] Work Phone: In the past 12 month s, was there a time when you were not able to pay the mortgage or rent on time? No [facility] Work Phone: Start: 03-18-2023 Alcohol intake Ex-drinker (finding) [facility] How often to you hav e a drink containing alcohol? Never [facility] Medical Equipment Procedure Code Equipment Code Equipment Original Text Equipment Identifier Dates Tray Powerline S urecuff 5fr Polyurethane Catheter 1 Lumen Microintroducer - [id number] Start: 12-06-2021 Clinical Notes 06-05-2021 to [...] about 50-60 systolic. patient with friend/ local truck driver from facility, we will take patient to the ER for evaluation ---- --------- Per dr. Alvarez 03/2021 Mr. Almonte, [place] , presents to clinic for routine follow [...] of the right coronary artery with robust pomm-mz-kuddr collaterals. 5. Normal global left ventricular systolic [...] Follow up with Dr. Galvez in the [facility] in the next 2 weeks; he may follow up with Dr. Orosco as needed for interventional issues. 5. Follow up wi (more content not included)... [facility] 04-11-2023 Evaluation note Encounter Date Diagnosis [...] (ICD-10 - Z89.619) WC dependent. 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 Graydon H [place] control is stable overall. , The patient [...] in the morning. CONTINUOUS BLOOD GLUC SENSOR (Adept CloudSTYLE SHAAN 14 DAY SENSOR) MISC Inject 1 [...] mouth in the morning. documented in [facility] [id number] Evaluation note* Encounter Date Diagnosis Assessment Notes [...] are maintaining regular scheduled appts with their harvest crew supervisor. No bleeding complications Dec, Hyperlipidemia LDL [...] fluid balance and to avoid dehydration. Dec, FDC (current) use of insulin (ICD-10 - Z79.4) [facility] Other 10-26-2023 Evaluation note* Encounter Date Diagnosis Assessment Notes Treatment Notes Treatment Clinical Notes Nov, Longstanding persistent atrial fibrillation (ICD-10 - I48.11) This patient is in NSR or rate controlled. This patient is anticoagulated to prevent thromboembolic events. They are maintaining regular scheduled appts with their harvest crew supervisor. No bleeding complications Nov, Hyperlipidemia LDL [...] Z94.0) Monthly labs to transplant clinic Nov, superintendent container terminal (current) use of insulin (ICD-10 - Z79.4) [facility] Other 09-28-2023 Evaluation note* Encounter Date Diagnosis [...] are maintaining regular scheduled appts with their harvest crew supervisor. No bleeding complications Oct, Type 1 [...] - Z94.0) Continue routine surveillance labs. Oct, superintendent container terminal (current) use of insulin (ICD-10 - Z79.4) [facility] Other 09-01-2023 Miscellaneous Notes* Telephone Encounter - Mary Martinez - 10/16/2022 1:08 PM EDT Pharmacy comment: REQUEST FOR 90 DAYS PRESCRIPTION. DX Code Needed. 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 No bleeding complications Sep, Type 1 [...] risk for cerebrovascular and cardiovascular disease. Sep, superintendent container terminal (current) use of insulin (ICD-10 - Z79.4) Sep, Kidney transplant status (ICD-10 - Z94.0) f/u transplant clinic Continue surveillance labs [facility] Other 08-08-2023 Miscellaneous Notes* Telephone Encounter - Ariadna Mcdowell Tech - 09/22/2022 8:58 AM EDT Pharmacy requesting refills as follows: Requested Prescriptions Pending Prescriptions Disp Refills tacrolimus IR (PROGRAF) 1 mg capsule Sig: Take 1 capsule by mouth DAILY AT 6 PM. Please review and advise. Ariadna Mcdowell, documented in this encounterK[facility]-20[facility] Evaluation note* Encounter Date Diagnosis Assessment Notes Treatment Notes Treatment Clinical Notes Aug, Longstanding persistent atrial fibrillation (ICD-10 - I48.11) This patient is in NSR or rate controlled. This patient is anticoagulated to prevent thromboembolic events. They are maintaining regular scheduled appts with their harvest crew supervisor. No s/s bleeding Aug, Type 1 [...] risk for cerebrovascular and cardiovascular disease. Aug, FDC (current) use of insulin (ICD-10 - Z79.4) Aug, Kidney transplant status (ICD-10 - Z94.0) Continue close surveillance w/ labs [facility] Other 07-26-2023 NoteUT Electrophysiology Consult Note Reason [...] about 50-60 systolic. patient with friend/ local truck driver from facility, we will take patient to the ER for evaluation --------- Per dr. Alvarez 03/2021 Mr. Almonte, [place] , presents to clinic for routine follow [...] of the right coronary artery with robust woub-rx-vchaf collaterals. 5. Normal global left ventricular systolic [...] Follow up with Dr. Galvez in the [facility] in the next 2 weeks; he may follow up with Dr. Orosco as needed for interventional issues. 5. Follow up with Dr. Devon Moreira as scheduled. PMH: Past Medical History: Diagnosis Date Abnormal ECG Arrhythmia Atrial fibrillation (CMS/HCC) Chronic kidney disease Coronary artery disease Diabetes mellitus (CMS/HCC) (more content not included)...[facility] NotePatient here for 1.5 year follow up and device check. Lightheaded in the office today, as BP is very low. He denies chest pain, SOB, palpitations, and bleeding on warfarin. Had routine labs last week. Review of Systems Musculoskeletal: Positive for arthritis, joint pain and myalgias. Neurological: Positive for light-headedness. All other systems reviewed and are negative.[facility] 08-06-2022 Evaluation note* Encounter Date Diagnosis [...] are maintaining regular scheduled appts with their harvest crew supervisor. No bleeding complications Jul, Type 1 [...] risk for cerebrovascular and cardiovascular disease. Jul, superintendent container terminal (current) use of insulin (ICD-10 - Z79.4) Jul, Kidney transplant status (ICD-10 - Z94.0) Monthly labs, ongoing surveillance from transplant clinic [facility] Other 05-15-2023 Progress note Author Sadia Aguilar [facility] June 29, 2022 2:47pm Note Date/Time June 29, 2022 2:46p m [facility] [address] [place] [address] Wound Center Provider Note Signed Patient: Alex Almonte MR#: [id number] : 1945 Acct:[id number] Age/Sex: 76 / M Copies to: DO Sadia Whyte, DAVID~ HPI Date of Visit Date of Visit: Date of Service: 06/29/2022 Time of Service: 14:45 Narrative HPI: 12/30/21 Alex is a 76 year old male presenting to [facility] wound care for aninitial visit for eval and treatment of a sacral/coccyx area pressure ulcer. He resides at [facility]. There is an AQUACULTURE FARMER present for the visit. Medicalhoney gel will [...] brief that was cleaned by this typewriter mechanic as well as another nursing staff member, [...] from initial visit here Mode of Arrival/ Signal Person: Facility vehicle Assistive Device Used Today: Wheelchair and Indra Lives with:: Care/Nursing Facility Appetite Description: Within Normal Limits Who helps w/ dressing change?: Nursing Facility Why Do You Need Help?: Can't Reach Ulcer, Limited mobility and Taxing effort to leave home Smoking Status: Former smoker [facility] Medical History (Updated 03/03/22 @ 14:41 by [...] Ulcer/Injury Staging: Unstageable Bed Appearance: Beefy Red, [place], Yellow and Rolled Edges Percent of Wound [...] By: <Electronically signed by DAVID Aguilar> 06/29/221446 [facility] Work Phone: 1(134) 347-276005-11-2023 Evaluation note* Encounter Date Diagnosis Assessment Notes [...] are maintaining regular scheduled appts with their harvest crew supervisor. No bleeding complications June, Hyperlipidemia LDL goal <100 (ICD-10 - E78.5) Instructed on diet and exercise with continued statin therapy.Discussed the beneficial effects of lowering cholesterol in reducing the risk for cerebrovascular and cardiovascular disease. June, FDC (current) use of insulin (ICD-10 - Z79.4) June, Kidney transplant status (ICD-10 - Z94.0) No s/s rejection [facility] Other 04-24-2023 Progress note Author Sadia Aguilar [facility] June 08, 2022 2:10pm Note Date/Time June 08, 2022 2:1 0pm [facility] [address] [place] [address] Wound Center Provider Note Signed Patient: Alex Almonte MR#: [id number] : 1945 Acct:[id number] Age/Sex: 76 / M Copies to: DO Sadia Whyte APRN~ HPI Date of Visit Date of Visit: Date of Service: 06/08/2022 Time of Service: 14:07 Narrative HPI: 12/30/21 Alex is a 76 year old male presenting to [facility] wound care for aninitial visit for eval and treatment of a sacral/coccyx area pressure ulcer. He resides at [facility]. There is an AQUACULTURE FARMER present for the visit. Medicalhoney gel will [...] brief that was cleaned by this typewriter mechanic as well as another nursing staff member, [...] from initial visit here Mode of Arrival/ Signal Person: Facility vehicle Assistive Device Used Today: Wheelchair and Indra Lives with:: Care/Nursing Facility Appetite Description: Within Normal Limits Who helps w/ dressing change?: Nursing Facility Why Do You Need Help?: Can't Reach Ulcer, Limited mobility and Taxing effort to leave home Smoking Status: Former smoker [facility] Medical History (Updated 03/03/22 @ 14:41 by [...] Ulcer/Injury Staging: Unstageable Bed Appearance: Beefy Red, [place], Yellow and Rolled Edges Percent of Wound [...] <Electronically signed by DAVID Aguilar> 06/08/22 1410 [facility] Work Phone: 1(485) 392-428604-21-2023 Evaluation note* Encounter Date Diagnosis Assessment Notes [...] are maintaining regular scheduled appts with their harvest crew supervisor. May, FDC (current) use of insulin (ICD-10 - Z79.4) May, Kidney transplant status (ICD-10 - Z94.0) routine labs per clinic. 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 No open ulcerations present Pain controlled [facility] Other 03-27-2023 Progress note Author Sadia Aguilar [facility] May 11, 2022 1:41pm Note Date/Time May 11, 2022 1:4 0pm [facility] [address] [place] [address] Wound Center Provider Note Signed Patient: Alex Almonte MR#: [id number] : 1945 Acct:[id number] Age/Sex: 76 / M Copies to: DO Sadia Whyte APRN~ HPI Date of Visit Date of Visit: Date of Service: 05/11/2022 Time of Service: 13:38 Narrative HPI: 12/30/21 Alex is a 76 year old male presenting to [facility] wound care for aninitial visit for eval and treatment of a sacral/coccyx area pressure ulcer. He resides at [facility]. There is an AQUACULTURE FARMER present for the visit. Medicalhoney gel will [...] brief that was cleaned by this typewriter mechanic as well as another nursing staff member, [...] from initial visit here Mode of Arrival/ Signal Person: Facility vehicle Assistive Device Used Today: Wheelchair [...] Ulcer/Injury Staging: Unstageable Bed Appearance: Beefy Red, [place] and Yellow Percent of Wound Bed Granulated/Red: [...] <Electronically signed by DAVID Aguilar> 05/11/22 1341 [facility] Work Phone: 1(272) 602-867103-23-2023 Evaluation note* Encounter Date Diagnosis Assessment Notes [...] are maintaining regular scheduled appts with their harvest crew supervisor. Apr, Type 1 diabetes mellitus with [...] are reviewed at the office visit Apr, superintendent container terminal (current) use of insulin (ICD-10 - Z79.4) Apr, Kidney transplant status (ICD-10 - Z94.0) Serial labs by clinic Hydrate, avoid NSAIDS [facility] Other 03-10-2023 NoteHNO ID: [id number] Author: Keyur Brown MD Service: ? Author Type: Physician Type: Progress Notes Filed: 04/24/2022 10:32 AM Note Text: Encounter opened in error, patient not seen.[facility]02-28-2023 Progress note Author Sadia Aguilar [facility] April 14, 2022 2:19pm Note Date/Time April 14, 2022 2:18pm [facility] [address] [place] [address] Wound Center Provider Note Signed Patient: Alex Almonte MR#: [id number] : 1945 Acct:[id number] Age/Sex: 76 / M Copies to: DO Sadia Whyte APRN~ HPI Date of Visit Date of Visit: Date of Service: 04/14/2022 Time of Service: 14:18 Narrative HPI: 12/30/21 Alex is a 76 year old male presenting to [facility] wound care for aninitial visit for eval and treatment of a sacral/coccyx area pressure ulcer. He resides at [facility]. There is an AQUACULTURE FARMER present for the visit. Medicalhoney gel will [...] brief that was cleaned by this typewriter mechanic as well as another nursing staff member, [...] from initial visit here Mode of Arrival/ Signal Person: Facility vehicle Assistive Device Used Today: Wheelchair and Indra Lives with:: Care/Nursing Facility Appetite Description: Within Normal Limits Who helps w/ dressing change?: Nursing Facility Why Do You Need Help?: Can't Reach Ulcer, Limited mobility and Taxing effort to leave home Smoking Status: Former smoker [facility] Medical History (Updated 03/03/22 @ 14:41 by [...] Ulcer/Injury Staging: Unstageable Bed Appearance: Beefy Red, [place] and Yellow Percent of Wound Bed Granulated/Red: [...] <Electronically signed by DAVID Aguilar> 04/14/22 141 [facility] Work Phone: 1(157) 980-130602-16-2023 NotePatient Outreach (KIMBERLY) ALEX ALMONTE ([id number]) 1945 M [facility] Date Time Provider Department 04/02/22 VAN OLIVAREZ During your visit today, we recorded the following information about you: Allergies As of Date: 04/02/2022 Noted Allergy Reaction PYRIDOSTIGMINE BROMIDE 08/04/2021 8 - GI Upset Date Reviewed: 02/26/2022 Reviewed by: Braden Abel MA - Fully Assessed Visit Diagnosis:Screening for genitourinary condition [Z13.89] Order(s):URINALYSIS, REFLEX MICROSCOPIC [JBA8004] Order #: [id number] Prescriptions as of 04/06/2022 - tacrolimus IR [...] by mouth daily with lunch. 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 DIABETES UNCOMPL ADULT-UNCONTRLLED [CDE3959] 02/24/2002 KIDNEY TRANSPLANT STATUS [Z94.0] 09/07/2003 PROPHYLACTIC IMMUNOTHERAPY [Z29.8] 07/30/2006 SEMICONDUCTORS WAFER BREAKER STEROIDS [WHX4211] 07/30/2006 VITAMIN D DEFICIENCY NOS [E55.9] 09/07/2008 [...] with moisture [L30.8] 12/04/2021 Encounter Status:Closed by [facility]TA on 04/06/22[facility] 03-30-2022 Miscellaneous Notes* Telephone Encounter [...] Katina Duque documented in this encounterK[facility]-2023 Progress note Author Sadia Aguilar [facility] March 24, 2022 3:00pm Note Date/Time March 24, 2022 2 :59pm [facility] [address] [place] [address] Wound Center Provider Note Signed Patient: Alex Almonte MR#: [id number] : 1945 Acct:[id number] Age/Sex: 76 / M Copies to: DO Sadia Whyte APRN~ HPI Date of Visit Date of Visit: Date of Service: 03/24/2022 Time of Service: 14:58 Narrative HPI: 12/30/21 Alex is a 76 year old male presenting to [facility] wound care for aninitial visit for eval and treatment of a sacral/coccyx area pressure ulcer. He resides at [facility]. There is an AQUACULTURE FARMER present for the visit. Medicalhoney gel will [...] brief that was cleaned by this typewriter mechanic as well as another nursing staff member, [...] from initial visit here Mode of Arrival/ Signal Person: Facility vehicle Assistive Device Used Today: Wheelchair and Indra Lives with:: Care/Nursing Facility Appetite Description: Within Normal Limits Who helps w/ dressing change?: Nursing Facility Why Do You Need Help?: Can't Reach Ulcer, Limited mobility and Taxing effort to leave home Smoking Status: Former smoker [facility] Medical History (Updated 03/03/22 @ 14:41 by [...] Ulcer/Injury Staging: Unstageable Bed Appearance: Beefy Red, [place] and Yellow Percent of Wound Bed Granulated/Red: [...] <Electronically signed by DAVID Aguilar> 03/24/22 [address] [facility] Work Phone: 1(778) 762-643201-17-2023 Progress note Author Sadia Aguilar [facility] March 03, 2022 2:41pm Note Date/Time March 03, 2022 2 :41pm [facility] [address] [place] [address] Wound Center Provider Note Signed Patient: Alex Almonte MR#: [id number] : 1945 Acct:[id number] Age/Sex: 76 / M Copies to: Devon Moreira,DO Sadia Aguilar APRN~ HPI Date of Visit Date of Visit: Date of Service: 03/03/2022 Time of Service: 14:38 Narrative HPI: 12/30/21 Alex is a 76 year old male presenting to [facility] wound care for aninitial visit for eval and treatment of a sacral/coccyx area pressure ulcer. He resides at [facility]. There is an AQUACULTURE FARMER present for the visit. Medicalhoney gel will [...] brief that was cleaned by this typewriter mechanic as well as another nursing staff member, [...] from initial visit here Mode of Arrival/ Signal Person: Facility vehicle Assistive Device Used Today: Wheelchair and Indra Lives with:: Care/Nursing Facility Appetite Description: Within Normal Limits Who helps w/ dressing change?: Nursing Facility Why Do You Need Help?: Can't Reach Ulcer, Limited mobility and Taxing effort to leave home Smoking Status: Former smoker [facility] Medical History (Updated 03/03/22 @ 14:41 by [...] Ulcer Pressure Ulcer/Injury Staging: Unstageable Bed Appearance: [place] and Yellow Percent of Wound Bed Granulated/Red: 90 Percent of Devitalized: 10 Length (cm): 2.2 Width (cm): 1.8 Depth (cm): 1.9 CM Sq: 3.960 Surrounding Tissue Appearance: [place], Hyperpigmented and Satellite lesions Surrounding Tissue Temp: [...] <Electronically signed by DAVID Aguilar> 03/03/22 14[address] [facility] Work Phone: 1(716) 127-558501-13-2023 Miscellaneous Notes* Telephone Encounter - RAUL Davidson - 02/27/2022 10:24 AM EST Patient phones requesting refills as follows: Per pts sister takes 1 mg in AM and 1 mg in PM Requested Prescriptions Pending Prescriptions Disp Refills tacrolimus IR (PROGRAF) 1 mg capsule Sig: Take 2 capsules by mouth DAILY (6 AM). Please review and advise. RAUL Davidson documented in this encounterKettering [facility]01-12-2023 NoteHNO ID: [id number] Author: Hina Peterson MD Service: ? Author Type: Physician Type: Progress Notes Filed: 02/26/2022 4:31 PM Note Text: [facility] [place] DEPARTMENT OF VASCULAR SURGERY OUTPATIENT VISIT DATE [...] of unga artery of extremity with ulceration ([facility] [...] by mouth daily with lunch. Magic Cup Hendricks with lunch aspirin, enteric coated (ASPIRIN, ENTERIC COATED) 81 mg EC tablet Take 1 tablet by mouth once daily. predniSONE (DELTASONE) 5 mg tablet TAKE 1 TABLET BY MOUTH EVERY DAY oxyCODONE IR (ROXICODONE) 5 mg immediate release tablet 1-2 tablets by ORAL/FEEDING TUBE route every 3 hours as needed. Food Supplement, Lactose-Free (ENSURE MAX (more content not included)... [facility]01-12-2023 History of Present illness Narrative* Hina Peterson MD - 02/26/2022 4:25 PM EST Images from the original note were not included. [facility] [place] DEPARTMENT OF VASCULAR SURGERY OUTPATIENT VISIT DATE [...] maxwell and sutures were removed at the [facility] facility. He comes here with a [...] by mouth daily with lunch. Magic Cup Hendricks with lunch aspirin, enteric coated (ASPIRIN, ENTERIC [...] 4:26 PM documented in this encounterKettering [facility]01-05-2023 Miscellaneous Notes* Telephone Encounter - Gwen Beard [...] Home and cell number(Ask for Alex's nurse) [phone] Diagnosis 4 mo f/u wound check Yumiko Mcclain documented in this encounterKettering Health [facility]01-05-2023 Miscellaneous Notes* Telephone Encounter - Augusta Medrano [...] Medrano RN documented in this encounterKettering Health [facility]01-04-2023 Miscellaneous Notes* Telephone Encounter - Martina Rossi [...] Tavares MA documented in this encounterKettering Health [facility]12-27-2022 Progress note Author Sadia Aguilar [facility] February 10, 2022 3:47pm Note Date/Time February 10, 2022 3:47pm [facility] [address] [place] [address] Wound Center Provider Note Signed Patient: Alex Almonte MR#: [id number] : 1945 Acct:[id number] Age/Sex: 76 / M Copies to: DO Sadia Whyte APRN~ HPI Date of Visit Date of Visit: Date of Service: 02/10/2022 Time of Service: 15:44 Narrative HPI: 12/30/21 Alex is a 76 year old male presenting to [facility] wound care for aninitial visit for eval and treatment of a sacral/coccyx area pressure ulcer. He resides at [facility]. There is an AQUACULTURE FARMER present for the visit. Medicalhoney gel will [...] brief that was cleaned by this typewriter mechanic as well as another nursing staff member, few weeks to follow up Subjective Pain Coccyx: Pain Description: Intermittent Pain Intensity: 0 Wound/Ulcer History When did wound start?: 4 weeks ago- from initial visit here Mode of Arrival/ Signal Person: Facility vehicle Assistive Device Used Today: Wheelchair and Indra Lives with:: Care/Nursing Facility Appetite Description: Within Normal Limits Who helps w/ dressing change?: Nursing Facility Why Do You Need Help?: Can't Reach Ulcer, Limited mobility and Taxing effort to leave home Smoking Status: Former smoker [facility] Medical History (Updated 01/20/22 @ 14:21 by [...] Ulcer Pressure Ulcer/Injury Staging: Unstageable Bed Appearance: [place] and Yellow Percent of Wound Bed Granulated/Red: 90 Percent of Devitalized: 10 Length (cm): 2.5 Width (cm): 2.3 Depth (cm): 2.1 CM Sq: 5.750 Surrounding Tissue Appearance: [place], Hyperpigmented and Satellite lesions Surrounding Tissue Temp: [...] <Electronically signed by DAVID Aguilar> 02/10/22 1547 [facility] Work Phone: 1(161) 382-663812-22-2022 NoteHNO ID: [id number] Author: Asia Pike MD Service: ? Author Type: Physician Type: Progress Notes Filed: 02/05/2022 9:38 AM Note Text: [facility] Trans[facility] Follow up Portions of this note [...] date with medications. Patient brought paperwork from [facility] with all medications being received. Patient unsure if they have been drawing labs regularly. Last Tac from 01/19: 12.9 and K 5.9. In need of current labs. Lab orders will be sent with patient and follows as below: [facility] Standing Lab Orders [id number] [place], [place] [address] February 05, 2022 Alex Almonte 1945 [id number] STANDARD TESTING: Diagnosis Codes: Z94.0 Kidney Transplant [...] AT YOUR LABORATORY FACILITY AND FAX TO [phone]. PLEASE CALL [phone]. Provider: Dr. Pike Current Outpatient Medications Medication [...] by mouth daily with lunch. Magic Cup Hendricks with lunch aspirin, enteric coated (ASPIRIN, ENTERIC COATED) 81 mg EC tablet Take 1 tablet by mouth once daily. atorvastatin (LIPITOR) 40 mg tablet 1 tablet by ORAL/FEEDING TUBE route daily at bedtime. (more content not included)...[facility]12-22-2022 History of Present illness Narrative* Asia Pike MD - 02/05/2022 8:20 AM EST Images from the original note were not included. [facility] Follow up Portions of this note [...] snacks patient declined. Indra scale at [facility]: 166.2 lbs per patient. Bed sore on coccyx causing discomfort. Being changed regularly at [facility]- reported to be smaller around but still as deep. Patient not very up to date with medications. Patient brought paperwork from [facility] with all medications being received. Patient unsure if they have been drawing labs regularly. Last Tac from 01/19: 12.9 and K 5.9. In need of current labs. Lab orders will be sent with patient and follows as below: [facility] Pancreas Transplant Standing Lab Orders [id number] [place], [place] [address] February 05, 2022 Alex Almonte 1945 [id number] STANDARD TESTING: Diagnosis Codes: Z94.0 Kidney Transplant [...] AT YOUR LABORATORY FACILITY AND FAX TO [phone]. PLEASE CALL [phone]. Provider: Dr. Pike Current Outpatient Medications Medication [...] by mouth daily with lunch. Magic Cup Hendricks with lunch aspirin, enteric coated (ASPIRIN, ENTERIC [...] Pike MD documented in this encounterKettering [facility]12-06-2022 Progress note Author Sadia Aguilar [facility] January 20, 2022 2:21pm Note Date/Time January 20, 2022 2 :21pm [facility] [address] [place] [address] Wound Center Provider Note Signed Patient: Alex Almonte MR#: [id number] : 1945 Acct:[id number] Age/Sex: 76 / M Copies to: DO Sadia Whyte APRN~ HPI Date of Visit Date of Visit: Date of Service: 01/20/2022 Time of Service: 14:17 Narrative HPI: 12/30/21 Alex is a 76 year old male presenting to [facility] wound care for aninitial visit for eval and treatment of a sacral/coccyx area pressure ulcer. He resides at [facility]. There is an AQUACULTURE FARMER present for the visit. Medicalhoney gel will [...] from initial visit here Mode of Arrival/ Signal Person: Facility vehicle Assistive Device Used Today: Wheelchair and Indra Lives with:: Care/Nursing Facility Appetite Description: Within Normal Limits Who helps w/ dressing change?: Nursing Facility Why Do You Need Help?: Can't Reach Ulcer, Limited mobility and Taxing effort to leave home Smoking Status: Former smoker [facility] Medical History (Updated 01/20/22 @ 14:21 by [...] Ulcer Pressure Ulcer/Injury Staging: Unstageable Bed Appearance: [place] and Yellow Percent of Wound Bed Granulated/Red: 40 Percent of Devitalized: 60 Length (cm): 5.2 Width (cm): 3.4 Depth (cm): 1.8 CM Sq: 17.680 Surrounding Tissue Appearance: [place] and Hyperpigmented Surrounding Tissue Temp: Warm Drainage [...] <Electronically signed by DAVID Aguilar> 01/20/22 1421 [facility] Work Phone: 1(159) 537-775212-06-2022 Miscellaneous Notes* Telephone Encounter - Van Olivarez APRN.SAXOPHONE PLAYER - 01/20/2022 1:12 PM EST Labs noted from yesterday. Pt is currently residing at [facility], I spoke with the Nurse, the results has been addressed by Physician caring for pt. He had been placed on Chlor Con and this has been discontinued and hyperkalemia has been treated. Van Olivarez APRN.DIAMANTE documented in this encounterKettering Health [facility]11-28-2022 Surgical operation note* Brief Op Note - Misbah Landis PA-C - 01/12/2022 10:41 AM EST BRIEF OPERATIVE / PROCEDURE NOTE LOG ID: [id number] SURGERY/PROCEDURE DATE: 01/12/2022 INCISION/PROCEDURE START TIME: 10:32 AM INCISION CLOSE/PROCEDURE END TIME: 10:35 AM SURGEON(S)/PROCEDURALIST(S) AND PHOTOVOLTAIC FABRICATION TECHNICIAN(S): Misbah Landis PA-C SURGERY/PROCEDURE(S): Removal tunneled vascular access catheter under local anesthesia ANESTHESIA: Procedural Sedation FINDINGS: Catheter removed intact ESTIMATED BLOOD LOSS: 0 ml SPECIMENS: None COMPLICATIONS: None PRE-OP/PRE-PROCEDURE DIAGNOSIS: Foot Ulcer POST-OP/POST-PROCEDURE DIAGNOSIS: Same as Preop SIGNATURE: Misbah Landis PA-C PATIENT NAME: Alex Almonte DATE: January 12, 2022 TIME: 10:42 AM documented in this encounterKettering Health Hamilton11-22-2022 Nurse Note* Laxmi Archibald RN - 01/06/2022 1:55 PM EST Pre-procedure instructions: Contacted patient's sister, Munira Brothers and nurse at [facility], Jada ([phone]) andconfirmed appt. for Gerhard removal scheduled on 01/12/22, at [facility] [place]. If instructions are not followed your procedure [...] signed. Arrival at 9:30am [facility] and check in for your procedure. Underwear Welter/Transportation: How will you be arriving for your procedure? Ambulance service. To be arranged by [facility]. If you develop any of the following symptoms before your procedure, please call [phone]. Chills, joint pain, rash, sore throat, cough, loss of smell, reddened eyes, vomiting, abdominal pains, diarrhea, loss of taste, severe headache, weakness, bruising or bleeding, fever, muscle pain, shortness of breath Recovery expectations: You can expect to be in recovery for 30 minutes following the procedure. Written instructions provided to patient via [employer] If you have any questions please call [phone] documented in this encounterKettering Health [facility]11-15-2022 Progress note Author Sadia Aguilar [facility] December 30, 2021 1:49pm Note Date/Time December 30, 2021 1:49pm [facility] [address] [place] [address] Wound Center Provider Note Signed Patient: Alex Almonte MR#: [id number] : 1945 Acct:[id number] Age/Sex: 76 / M Copies to: DO Sadia Whyte APRN~ HPI Date of Visit Date of Visit: Date of Service: 12/30/2021 Time of Service: 13:44 Narrative HPI: 12/30/21 Alex is a 76 year old male presenting to [facility] wound care for aninitial visit for eval and treatment of a sacral/coccyx area pressure ulcer. He resides at [facility]. There is an AQUACULTURE FARMER present for the visit. Medicalhoney gel will [...] start?: 4 weeks ago Mode of Arrival/ Signal Person: Facility vehicle Assistive Device Used Today: Wheelchair and Indra Lives with:: Care/Nursing Facility Appetite Description: Within Normal Limits Who helps w/ dressing change?: Nursing Facility Why Do You Need Help?: Can't Reach Ulcer, Limited mobility and Taxing effort to leave home Smoking Status: Former smoker [facility] Medical History (Updated 12/30/21 @ 13:49 by [...] 0.1 CM Sq: 38.500 Surrounding Tissue Appearance: [place] and Hyperpigmented Surrounding Tissue Temp: Warm Drainage [...] <Electronically signed by DAVID Aguilar> 12/30/21 134[address] [facility] Work Phone: 1(204) 855-902411-15-2022 History of Present illness Narrative* Paresh Fonseca [...] rehab facility He is currently at [facility] in [facility] Seen on video together with Zoe [...] local wound care following this at [facility] WBC 6.0, creatinine -- 0.8. alt 12 [...] by mouth daily with lunch. Magic Cup Hendricks with lunch aspirin, enteric coated (ASPIRIN, ENTERIC [...] is a 76 year old male from [facility]. 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 History of PAD CAD status post CABG, diabetes, atrial fibrillatioN He originally presented [facility] for having altered mental status and [...] post right heel I&D at [facility] on 11/24/2021. 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 4. CKD - s/p gerhard placement 5. immunocompromised Status post right open above the ankle [id number] - Enterobacter and MRSA from cultures Gram-positive [...] will need to coordinate with his SNF [phone] --our ID office will need to arrange for IR gerhard removal. Return to ID as needed 10 Minutes spent via virtual visit. SIGNATURE: Paresh Fonseca MD PATIENT NAME: Alex Almonte DATE: December 30, 2021 TIME: 9:52 AM documented in this encounterK[facility]-01-2022 Miscellaneous Notes* Telephone Encounter - Sulma Pardo - 12/16/2021 3:13 PM EDT Pt inhalation therapy aide is requesting orders for Stomp ampushield to be taken off pressure relief because it is causing sores on the thigh. Thanks, Sulma Pardo Healthcare Interpreter documented in this encounterK[facility]10-31-2022 Miscellaneous Notes* Telephone Encounter - Gwen Alfredo Adm Asst I - 12/15/2021 4:11 PM EDT Rupa LYLES from [facility] [phone] called to report IV Vancomycin was started until today. Patient missed 3 days, should patient makeup missed doses? Please advise. Gwen Alfredo Adm Asst I documented in this encounterKettering [facility]10-21-2022 Instructions* Patient Instructions* Paresh Fonseca MD - [...] serious illness Are taking any medications (prescription, iiad-vkt-exrsigz, vitamins, or herbal products) How will I [...] treatment or prevention of COVID-19 go to https://www.fda.gov/asfzmxsff-moxvzfhjwadr-icn- response/uqg-kjzdc-gtzwsnxbjk-hzw-knuiyu-hkzqdzmnu/xhoiyxdyl-wgc-woxaiuivghjmk for more information. It is your choice [...] not go away. Report side effects to [employer] at www.fda.gov/medImmuneWorkstch or call 6-109-UUV-5815 or call [employer] . Additional Information If you have questions, visit the website or call the telephone number provided below. Website Telephone number http://wwwGleanster Research How can I learn more about COVID-19? Ask your healthcare provider. Visit https://www.cdc.gov/COVID19 Contact your local or state public health department. What is an Emergency Use Authorization? The [place] FDA has made EVUSHELD (tixagevimab co-packaged with cilgavimab) available under an emergency access mechanism called an Emergency Use Authorization EUA. The EUA is supported by a Retail Loan Originator of Health and Human Service (HHS) declaration [...] monohydrate, polysorbate 80, sucrose, water. Distributed by: [employer], [place] Manufactured for: [employer] [place] wikifolio 2021. All rightsreserved. documented in this encounterKettering Health Hamilton10-21-2022 Miscellaneous Notes* Telephone Encounter - Paresh Fonseca [...] center Paresh Fonseca MD documented in this encounterK[facility]10-03-2022 Instructions* Patient Instructions* No Reeder DO - 11/17/2021 4:26 PM EDT -- continue coumadin -- will get vascular ultrasound for vein and artery of your right leg -- will have you see my interventional cardiology partner regarding your peripheral artery disease and if your artery disease is impairing your wound healing for the leg ulcer documented in this encounterKettering Health [facility]10-03-2022 History of Present illness Narrative* No Reeder DO - 11/17/2021 3:53 PM EDT Images from the original note were not included. [facility] [place] [facility] Department of Cardiovascular Medicine SECTION [...] Leg elevation. No Reeder DO, [facility] Vascular Medicine documented in this encounterKettering Health Hamilton08-16-2022 History of Past illness Narrative* Problem Noted Date Resolved Date Altered tissue perfusion documented as of this encounter (statuses as of 09/30/2021) [address]16-2022 History of Past illness Narrative* Problem Noted Date Resolved Date Altered tissue perfusion documented as of this encounter (statuses as of 10/09/2021) [address]16-2022 History of Past illness Narrative* Problem Noted Date Resolved Date Altered tissue perfusion documented as of this encounter (statuses as of 11/18/2021) [address]16-2022 History of Past illness Narrative* Problem Noted Date Resolved Date Altered tissue perfusion documented as of this encounter (statuses as of 12/01/2021) [address]16-2022 History of Past illness Narrative* Problem Noted Date Resolved Date Altered tissue perfusion 16/2 022 documented as of this encounter (statuses as of 12/05/2021) [address]16-2022 History of Past illness Narrative* Problem Noted Date Resolved Date Altered tissue perfusion 16/2 022 documented as of this encounter (statuses as of 12/08/2021) [address]16-2022 History of Past illness Narrative* Problem Noted Date Resolved Date Altered tissue perfusion 16/2 022 documented as of this encounter (statuses as of 12/08/2021) [address]16-2022 History of Past illness Narrative* Problem Noted Date Resolved Date Altered tissue perfusion 16/2 022 documented as of this encounter (statuses as of 12/12/2021) [address]16-2022 History of Past illness Narrative* Problem Noted Date Resolved Date Altered tissue perfusion 16/2 022 documented as of this encounter (statuses as of 12/15/2021) [address]16-2022 History of Past illness Narrative* Problem Noted Date Resolved Date Altered tissue perfusion 16/2 022 documented as of this encounter (statuses as of 12/16/2021) [address]16-2022 History of Past illness Narrative* Problem Noted Date Resolved Date Altered tissue perfusion 16/2 022 documented as of this encounter (statuses as of 12/31/2021) [address]16-2022 History of Past illness Narrative* Problem Noted Date Resolved Date Altered tissue perfusion 16/2 022 documented as of this encounter (statuses as of 01/13/2022) [address]16-2022 History of Past illness Narrative* Problem Noted Date Resolved Date Altered tissue perfusion 16/2 022 documented as of this encounter (statuses as of 01/20/2022) [address]16-2022 History of Past illness Narrative* Problem Noted Date Resolved Date Altered tissue perfusion 16/2 022 documented as of this encounter (statuses as of 02/06/2022) [address]16-2022 History of Past illness Narrative* Problem Noted Date Resolved Date Altered tissue perfusion 16/2 022 documented as of this encounter (statuses as of 02/20/2022) [address]16-2022 History of Past illness Narrative* Problem Noted Date Resolved Date Altered tissue perfusion 022 documented as of this encounter (statuses as of 02/26/2022) [address]2022 History of Past illness Narrative* Problem Noted Date Resolved Date Altered tissue perfusion 022 documented as of this encounter (statuses as of 02/27/2022) [address]2022 History of Past illness Narrative* Problem Noted Date Resolved Date Altered tissue perfusion 022 documented as of this encounter (statuses as of 03/21/2022) [address]2022 History of Past illness Narrative* Problem Noted Date Resolved Date Altered tissue perfusion 022 documented as of this encounter (statuses as of 03/30/2022) [address]2022 History of Past illness Narrative* Problem Noted Date Resolved Date Altered tissue perfusion 022 documented as of this encounter (statuses as of 04/06/2022) [address]16-2022 History of Past illness Narrative* Problem Noted Date Resolved Date Altered tissue perfusion 022 documented as of this encounter (statuses as of 05/13/2022) [address]16-2022 History of Past illness Narrative* Problem Noted Date Diagnosed Date Resolved Date Altered tissue perfusion documented as of this encounter (statuses as of 2022) [address]2022 History of Past illness Narrative* Problem Noted Date Diagnosed Date Resolved Date Altered tissue perfusion documented as of this encounter (statuses as of 10/29/2022) [address]16-2022 Miscellaneous Notes* Telephone Encounter - Katina [...] Katina Duque documented in this encounterKettering Health Hamilton05-31-2022 Miscellaneous Notes* Telephone Encounter - Van Olivarez [...] Rosibel Daniel documented in this encounterKettering Health Hamilton04-21-2022 Miscellaneous Notes* Telephone Encounter - Van Olivarez APRN.CNP - 06/05/2021 4:46 PM EDT Spoke with pt regarding latest results, scr. at baseline. TAC level 8.6 prev two levels in 5 range.He believes latest level would be 12hr trough. No changes for now, if next level >7, can consider if reduction appropriate. He understands. Van Olivarez APRN.CNP documented in this encounterKet[facility] HamiltonEvalubeebe [facility] note* Diagnosis Screening for genitourinary condition Screening for other and unspecified genitourinary condition documented in this encounter [facility]* Diagnosis Acute deep vein thrombosis (DVT) of proximal end of right lower extremity (HCC)- Primary PAD (peripheral artery disease) (HCC) Peripheral vascular disease, unspecified Nonhealing ulcer of heel (HCC) Anticoagulation management encounter Encounter for therapeutic drug monitoring documented in this encounter [facility] note* Diagnosis Encounter for prophylactic measures, unspecified- Primary documented in this encounter [facility] note* Diagnosis Kidney replaced by transplant- Primary documented in this encounter [facility] note* Diagnosis MRSA bacteremia- Primary Bacteremia Diabetic foot ulcer with osteomyelitis (HCC) Type II or unspecified type diabetes mellitus with other specified manifestations, not stated as uncontrolled ILIANA (acute kidney injury) ([facility]) Acute kidney failure, unspecified documented in this encounter [facility] note* Diagnosis Kidney replaced by transplant- Primary 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 [facility] current use of immunosuppressive drug documented in this encounter [facility] note* Diagnosis Hx of BKA, right (HCC)- Primary PAD (peripheral artery disease) ([facility] [...] gangrene, with long-term current use of insulin ([facility]) Paroxysmal atrial fibrillation ([facility]) Atrial fibrillation documented in this encounter [facility] note* Diagnosis Screening for genitourinary condition Screening for other and unspecified genitourinary condition documented in this encounter [facility] note* Diagnosis Onset Date Resolution Status At high risk for skin breakdown chronic Diabetes chronic Fecal incontinence chronic Limited mobility chronic Poor appetite chronic Pressure ulcer of sacral region, unstageable chronic Candidiasis resolved [facility] Work Phone: Evaluation noteNo [employer] Other Evaluation note* Diagnosis Kidney replaced by transplant- Primary documented in this encounter [facility] note* Diagnosis Type 1 diabetes mellitus with [...] COLONOSCOPY 1995,2001, 2014 Hospitalization History see above [employer] Other Progress note Author Sadia Aguilar [facility] July 20, 2022 1:48pm Note Date/Time July 20, 2022 1:48p m [facility] [address] [place] [address] Wound Center Provider Note Signed Patient: Alex Almonte MR#: [id number] : 1945 Acct:[id number] Age/Sex: 76 / M Copies to: Devon Moreira,DO Sadia Aguilar, WILDLIFE ENFORCEMENT MAJOR~ HPI Date of Visit Date of Visit: Date of Service: 07/20/2022 Time of Service: 13:46 Narrative HPI: 12/30/21 Alex is a 76 year old male presenting to [facility] wound care for aninitial visit for eval and treatment of a sacral/coccyx area pressure ulcer. He resides at [facility]. There is an AQUACULTURE FARMER present for the visit. Medicalhoney gel will [...] brief that was cleaned by this typewriter mechanic as well as another nursing staff member, [...] from initial visit here Mode of Arrival/ Signal Person: Facility vehicle Assistive Device Used Today: Wheelchair and Indra Lives with:: Care/Nursing Facility Appetite Description: Within Normal Limits Who helps w/ dressing change?: Nursing Facility Why Do You Need Help?: Can't Reach Ulcer, Limited mobility and Taxing effort to leave home Smoking Status: Former smoker [facility] Medical History (Updated 03/03/22 @ 14:41 by [...] <Electronically signed by DAVID Aguilar> 07/20/22 [address] [facility] Work Phone: Reason for referral (narrative)* Outpatient Procedure (Routine) - Authorized Specialty Diagnoses / Procedures Referred By Felicia t [facility]erred [facility] Diagnoses PAD (peripheral artery disease) (HCC) Nonhealing ulcer of heel (HCC) Procedures US LEG ARTERIAL PERIPH UNL VAS LAB DUP-SCAN LXTR ART/ARTL BPGS UNI/LMTD STUDY No Reeder DO [address] [place] [id number] [facility] [address] [address] Referral ID Status Reason Start Date Expiration Date Visits Requested Visits Authorized [id number] Authorized Auto-Generat ed Referral 11/17/2021 11/17/2022 1 1 * Outpatient Procedure (Routine) - Authorized Specialty Diagnoses / Procedures Referred By Contac t Referred To Contact [facility] Diagnoses Acute deep vein thrombosis (DVT) of proximal end of right lower extremity (HCC) Procedures US LEG VEIN DVT UNL VAS LAB DUP-SCAN XTR VEINS UNILATERAL/LIMITED STUDY No Reeder DO [address] [place] [address] [facility] [place] [address] Referral ID Status Reason Start Date Expiration Date Visits Requested Visits Authorized [id number] Authorized Auto-Generat ed Referral 11/17/2021 11/17/2022 1 1 * Consult, Test, Treat (Routine) - Authorized Specialty Diagnoses / Procedures Referred By Contac t Referred To Contact Cardiology Diagnoses PAD (peripheral artery disease) (HCC) Nonhealing ulcer of heel (HCC) Procedures CONSULT TO CARDIOLOGY OFFICE/OUTPATIENT [facility] MDM 60-74 MINUTES Savanah Marcelo MD [address] [place] [address] Referral ID Status Reason Start Date Expiration Date Visits Requested Visits Authorized [id number] Authorized PCP Requested Referral 11/17/2021 11/17/2022 1 1 [facility] Summary Purpose Family History No Family History Records Found Relationship Condition Age at Onset Recorded Date/T kartik father Aneurysm Unknown father Parkinson's disease Unknown Advance Directives No Advanced Directives Records FoundDocuments on File Type Date Recorded 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 Advance Directive(s) Latest Code [...] Maker Relationship: M ajority of Adult Siblings (primary care sales representative) DNR-CCA 09/26/2021 11:56 AM 10/01/2021 [...] Decision Maker Relationship: Majority of Adult Siblings (primary care sales representative) Code Status History Code Status [...] Reason for Visit Chief Complaint Open Wound ([facility]) Reason for Visit At high [...] and content) DATE CREATED AUTHOR 02/20/2021 [facility] DATE CREATED AUTHOR AUTHOR'S ORGANIZ ATION 07/25/2022 [facility] DATE CREATED AUTHOR AUTHOR'S ORGANIZ ATION 08/16/2022 [facility] DATE CREATED AUTHOR AUTHOR'S ORGANIZ ATION 01/14/2023 [facility] DATE CREATED AUTHOR AUTHOR'S ORGANIZ ATION 06/19/2023 [facility] DATE CREATED AUTHOR AUTHOR'S ORGANIZ ATION 09/05/2023 [facility] Source Comments (unrecognize d section and content) In the event this informatio n is protected by the Federal Confidentiality of Alcohol and Drug Abuse Patient Records regulations: The Federal rules restrict any use of the information to criminally investigate or prosecute any alcohol or drug abuse patient.[facility] HamiltonIn the event this information is protected by the Federal Confidentiality of Alcohol and Drug Abuse Patient Records regulations: The Federal rules restrict any use of the information to criminally investigate or prosecute any alcohol or drug abuse patient.[facility] HamiltonIn the event this information is protected by the Federal Confidentiality of Alcohol and Drug Abuse Patient Records regulations: The Federal rules restrict any use of the information to criminally investigate or prosecute any alcohol or drug abuse patient.[facility] HamiltonIn the event this information is protected by the Federal Confidentiality of Alcohol and Drug Abuse Patient Records regulations: The Federal rules restrict any use of the information to criminally investigate or prosecute any alcohol or drug abuse patient.[facility] HamiltonIn the event this information is protected by the Federal Confidentiality of Alcohol and Drug Abuse Patient Records regulations: The Federal rules restrict any use of the information to criminally investigate or prosecute any alcohol or drug abuse patient.[facility] HamiltonIn the event this information is protected by the Federal Confidentiality of Alcohol and Drug Abuse Patient Records regulations: The Federal rules restrict any use of the information to criminally investigate or prosecute any alcohol or drug abuse patient.[facility] HamiltonIn the event this information is protected by the Federal Confidentiality of Alcohol and Drug Abuse Patient Records regulations: The Federal rules restrict any use of the information to criminally investigate or prosecute any alcohol or drug abuse patient.[facility] HamiltonIn the event this information is protected by the Federal Confidentiality of Alcohol and Drug Abuse Patient Records regulations: The Federal rules restrict any use of the information to criminally investigate or prosecute any alcohol or drug abuse patient.[facility] HamiltonIn the event this information is protected by the Federal Confidentiality of Alcohol and Drug Abuse Patient Records regulations: The Federal rules restrict any use of the information to criminally investigate or prosecute any alcohol or drug abuse patient.[facility] HamiltonIn the event this information is protected by the Federal Confidentiality of Alcohol and Drug Abuse Patient Records regulations: The Federal rules restrict any use of the information to criminally investigate or prosecute any alcohol or drug abuse patient.[facility] HamiltonIn the event this information is protected by the Federal Confidentiality of Alcohol and Drug Abuse Patient Records regulations: The Federal rules restrict any use of the information to criminally investigate or prosecute any alcohol or drug abuse patient.[facility] HamiltonIn the event this information is protected by the Federal Confidentiality of Alcohol and Drug Abuse Patient Records regulations: The Federal rules restrict any use of the information to criminally investigate or prosecute any alcohol or drug abuse patient.[facility] HamiltonIn the event this information is protected by the Federal Confidentiality of Alcohol and Drug Abuse Patient Records regulations: The Federal rules restrict any use of the information to criminally investigate or prosecute any alcohol or drug abuse patient.[facility] HamiltonIn the event this information is protected by the Federal Confidentiality of Alcohol and Drug Abuse Patient Records regulations: The Federal rules restrict any use of the information to criminally investigate or prosecute any alcohol or drug abuse patient.[facility] HamiltonIn the event this information is protected by the Federal Confidentiality of Alcohol and Drug Abuse Patient Records regulations: The Federal rules restrict any use of the information to criminally investigate or prosecute any alcohol or drug abuse patient.[facility] HamiltonIn the event this information is protected by the Federal Confidentiality of Alcohol and Drug Abuse Patient Records regulations: The Federal rules restrict any use of the information to criminally investigate or prosecute any alcohol or drug abuse patient.[facility] HamiltonIn the event this information is protected by the Federal Confidentiality of Alcohol and Drug Abuse Patient Records regulations: The Federal rules restrict any use of the information to criminally investigate or prosecute any alcohol or drug abuse patient.[facility] HamiltonIn the event this information is protected by the Federal Confidentiality of Alcohol and Drug Abuse Patient Records regulations: The Federal rules restrict any use of the information to criminally investigate or prosecute any alcohol or drug abuse patient.[facility] HamiltonIn the event this information is protected by the Federal Confidentiality of Alcohol and Drug Abuse Patient Records regulations: The Federal rules restrict any use of the information to criminally investigate or prosecute any alcohol or drug abuse patient.[facility] HamiltonIn the event this information is protected by the Federal Confidentiality of Alcohol and Drug Abuse Patient Records regulations: The Federal rules restrict any use of the information to criminally investigate or prosecute any alcohol or drug abuse patient.[facility] HamiltonIn the event this information is protected by the Federal Confidentiality of Alcohol and Drug Abuse Patient Records regulations: The Federal rules restrict any use of the information to criminally investigate or prosecute any alcohol or drug abuse patient.[facility] HamiltonIn the event this information is protected by the Federal Confidentiality of Alcohol and Drug Abuse Patient Records regulations: The Federal rules restrict any use of the information to criminally investigate or prosecute any alcohol or drug abuse patient.[facility] HamiltonIn the event this information is protected by the Federal Confidentiality of Alcohol and Drug Abuse Patient Records regulations: The Federal rules restrict any use of the information to criminally investigate or prosecute any alcohol or drug abuse patient.[facility] HamiltonIn the event this information is protected by the Federal Confidentiality of Alcohol and Drug Abuse Patient Records regulations: The Federal rules restrict any use of the information to criminally investigate or prosecute any alcohol or drug abuse patient.[facility] HamiltonIn the event this information is protected by the Federal Confidentiality of Alcohol and Drug Abuse Patient Records regulations: The Federal rules restrict any use of the information to criminally investigate or prosecute any alcohol or drug abuse patient.[facility] HamiltonIn the event this information is protected by the Federal Confidentiality of Alcohol and Drug Abuse Patient Records regulations: The Federal rules restrict any use of the information to criminally investigate or prosecute any alcohol or drug abuse patient.[facility] Reason for Visit (unrecogniz ed section and [...] Care Teams (unrecognized sec tion and content) Hotel Room Attendant Relationship Specialty Start Date End Date Devon Moreira, DO [address] [place] [address] PCP - General 05/27/00 Hotel Room Attendant Relationship Specialty Start Date End Date Devon Moreira, DO [address] [place] [address] PCP - General 05/27/00 Hotel Room Attendant Relationship Specialty Start Date End Date Devon Moreira, DO [address] [place] [address] PCP - General 05/27/00 Hotel Room Attendant Relationship Specialty Start Date End Date Devon Moreira Raquel, DO [address] [place] [address] PCP - General 05/27/00 Hotel Room Attendant Relationship Specialty Start Date End Date Devon Moreira, DO [address] [place] [address] PCP - General 05/27/00 Hotel Room Attendant Relationship Specialty Start Date End Date Devon Moreira, DO [address] [place] [address] PCP - General 05/27/00 Hotel Room Attendant Relationship Specialty Start Date End Date Devon Moreira, DO [address] [place] [address] PCP - General 05/27/00 Hotel Room Attendant Relationship Specialty Start Date End Date Devon Moreira, DO [address] [place] [address] PCP - General 05/27/00 Hotel Room Attendant Relationship Specialty Start Date End Date Devon Moreira, DO [address] [place] [address] PCP - General 05/27/00 Hotel Room Attendant Relationship Specialty Start Date End Date Devon Moreira, DO [address] [place] [address] PCP - General 05/27/00 Hotel Room Attendant Relationship Specialty Start Date End Date Devon Moreira, DO [address] [place] [address] PCP - General 05/27/00 Hotel Room Attendant Relationship Specialty Start Date End Date Devon Moreira, DO [address] [place] [address] PCP - General 05/27/00 Hotel Room Attendant Relationship Specialty Start Date End Date Devon Moreira, DO [address] [place] [address] PCP - General 05/27/00 Hotel Room Attendant Relationship Specialty Start Date End Date Devon Moreira, DO [address] [facility] [place] [place] [facility] [address] PCP - General 05/27/00 Hotel Room Attendant Relationship Specialty Start Date End Date Devon Moreira, DO [address] [facility] [place] [address] PCP - General 05/27/00 Hotel Room Attendant Relationship Specialty Start Date End Date Devon Moreira, DO [address] [place] [facility] [place] [address] PCP - General 05/27/00 Hotel Room Attendant Relationship Specialty Start Date End Date Devon Moreira, DO [address] [facility] [place] [address] PCP - General 05/27/00 Hotel Room Attendant Relationship Specialty Start Date End Date Devon Moreira, DO [address] [facility] [address] PCP - General 05/27/00 Hotel Room Attendant Relationship Specialty Start Date End Date Devon Moreira, DO [address] [facility] [place] [address] PCP - General 05/27/00 Team Status: Active Member Role Status Dates Devon Moreira DO Primary Care Provider Active Team Status: Inactive Member Role Status Dates Devon Moreira DO Primary Care Provider Active Sadia Aguilar APRN Attending Provider Active Hotel Room Attendant Relationship Specialty Start Date End Date Devon Moreira, DO [address] [facility] [place] [address] PCP - General 05/27/00 Hotel Room Attendant Relationship Specialty Start Date End Date Devon Moreira, DO [address] [place] [place] [address] PCP - General 05/27/00 Hotel Room Attendant Relationship Specialty Start Date End Date Ni Cabrera DO [address] [facility] [address] [place] [address] PCP - ACO Reach 07/09/22 Devon Moreira MD [address] [facility] [place] [id number] PCP - General Internal Medicine 07/14/22 PRN Active and Recently Administ ered Medications (unrecognized section and content) Medication Order 01/10/2022 01/11/2022 01/12/2022 lidocaine (PF) 10 mg/mL (1 %) injection (XYLOCAINE) SUBCUTANEOUS, X (OR/PROCEDURE) PRN, Starting on Wed01/12/22 at 1032, Until Wed01/13/22 at 0303, Intraprocedure 1032 (Given - Provid er: Vani Hdz APRN.[employer]) Goals (unrecognized section and content) Goals may [...] BE BASED ON THE PRIMARY CLINICAL RECORDS. [employer] provides no warranty or guarantee of the accuracy or completeness of information in this document.
[2023-09-15 08:19] LABS: Basophils Absolute Auto 0.1 10^3/uL (0.0-0.1); Basophils Percent Auto 0.9 % (0.2-2.0); Eosinophils Absolute Auto 0.2 10^3/uL (0.0-0.7); Eosinophils Percent Auto 4.1 % (0.9-7.0); Hematocrit 26.7 % (42.0-54.0); Hemoglobin 7.9 g/dL (14.0-18.0); Immature Granulocytes Abs Auto 0.02 10^3/uL (0.00-0.03); Immature Granulocytes Pct Auto 0.3 % (0.0-0.5); Lymphocytes Absolute Auto 1.8 10^3/uL (1.2-3.8); Lymphocytes Percent Auto 30.9 % (20.5-60.0); Mean Corpuscular HGB Conc 29.6 g/dL (29.9-35.2); Mean Corpuscular Volume 81.2 fL (80.0-94.0); Mean Platelet Volume 10.4 fL (9.5-13.5); Monocytes Absolute Auto 0.6 10^3/uL (0.3-0.8); Monocytes Percent Auto 10.3 % (1.7-12.0); Neutrophils Absolute Auto 3.1 10^3/uL (1.4-6.5); Neutrophils Percent Auto 53.5 % (43.0-75.0); Platelet Count 274 10^3/uL (150-450); Red Blood Count 3.29 10^6/uL (4.70-6.10); Red Cell Distribution Width 21.3 % (11.0-15.0); White Blood Count 5.9 10^3/uL (4.0-11.0)
[2023-09-15 08:25] LABS: INR 3.47; Prothrombin Time 32.5 sec (9.0-11.6)
[2023-09-15 08:26] LABS: Alanine Aminotransferase 15 U/L (16-63); Albumin Globulin Ratio 0.9; Albumin Level 2.6 g/dL (3.4-5.0); Alkaline Phosphatase 77 U/L (46-116); Aspartate Amino Transferase 20 U/L (15-37); BUN Creatinine Ratio 16.1; Bilirubin Total 0.8 mg/dL (0.2-1.0); Calcium 8.3 mg/dL (8.5-10.1); Chloride 104 mmol/L (98-107); Estimated GFR (African America 58 (>=60); Estimated GFR (Non-African Ame 48 (>=60); Glucose 210 mg/dL (74-106); Magnesium 1.9 mg/dL (1.8-2.4); Phosphorus 3.5 mg/dL (2.6-4.7); Potassium 4.1 mmol/L (3.5-5.1); Sodium 139 mmol/L (136-145); Total Protein 5.6 g/dL (6.4-8.2)
[2023-09-15 08:33] LABS: Anion Gap 10.7; Carbon Dioxide 28.4 mmol/L (21.0-32.0)
[2023-09-17 20:08] LABS: Tacrolimus (FK506), Blood 4.9 ng/mL (2.0-20.0)
== END 2023-09-15 04:02 | disposition home or self-care (01) ==
LOC: LAB 04:01
PROVIDERS: PCP Internal Medicine; Visit Provider Internal Medicine
DX: Z51.81 Encounter for therapeutic drug level monitoring (principal); Z79.899 Other long term (current) drug therapy; N28.9 Disorder of kidney and ureter, unspecified
CPT/HCPCS: 36415; 80053; 80197; 83735; 84100; 85025; 85610

== ENCOUNTER 2023-09-16 00:32 | Outpatient (RCR) | payer MEDICARE, OTHER, SELFPAY | END 2023-10-15 09:34 | disposition home or self-care (01) | LOC: MM 00:32 | PROVIDERS: PCP Internal Medicine; Visit Provider Internal Medicine | DX: Z51.81 Encounter for therapeutic drug level monitoring (principal); Z79.01 Long term (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 of anticoagulants ==

== ENCOUNTER 2023-09-20 11:42 | Outpatient (REF) | payer MEDICARE, OTHER, SELFPAY ==
--- OUTSIDE RECORDS SUMMARY | 2023-09-20 11:53 | XMS_ITS | CCD ---
Author Organization [facility] Inform ion Partnership [facility] Care Team Providers Care Caster Helper Name Role Phone PROVIDER, UNKNOWN Attending Unavailable [...] BALL, DR OSORIO Admitting Unavailable BALL, DR OSOROI Primary Care Unavailable BALL, DR OSORIO Consulting [...] Care Unavailable FAWWAD, H Attending Unavailable FAWWAD, H Admitting Unavailable BALL, DR OSORIO Primary [...] Unavailable Lillie, DO Osorio Primary Care Provider [phone] DAVID Aguilar Attending Provider Sadia Aguilar Attending Unavailable Sadia Aguilar Admitting Unavailable Devon Moreira Primary Care Unavailable DEVON MOREIRA Referring Unavailable HINA PETERSON Attending Unavailable DEVON MOREIRA Primary Care Unavailable ARTUR CHEN Referring Unavailable DEVON MOREIRA Primary Care Unavailable PetznNi mallory DO Unavailable [phone] Devon Moreira MD Primary Care Provider CAITY IBRAHIM Attending Unavailable MILAGRO QUEEN Referring Unavailable MILAGRO QUEEN Referring Unavailable SARTHAK PARNELL Attending Unavailable NI CABRERA Attending Unavailable DEVON MOREIRA Referring Unavailable NI CABRERA Attending Unavailable DEVON MOREIRA Referring Unavailable NI CABRERA Attending Unavailable Allergies Allergy Classification Reported Allergen(s) Allergy Type Date of Onset Reaction(s) Facility (20 sources) Pyridostigmine; Translations: [PYRIDOSTIGMINE BROMIDE] Drug Allergy 2 GI Upset [facility] Work Phone: (1 source) Pyridostigmine Drug Allergy [...] mellitus with nephropathy ([facility]) 3 units breakfast, 5 units lunch, [...] 10 units and notify provider [facility] [place] [place] [phone] MG (6 sources) take 155-852 tablets by mouth twice daily [facility] [place] [place] 155-852-130 MG 1 tablet Orally twice daily Active take 155-852 tablets by mouth four times daily take 155-852 tablets by mouth four times daily [facility] [place] [place] 155-852-130 MG 1 tablet Orally Four times [...] by mouth daily with lunch. Magic Cup Lajas with lunch 7110 mL 0 12/11/2021 Active Comment on above: Take 237 mL by mouth daily with lunch. Magic Cup Lajas with lunch polyethylene glycol 3350 65520 mg powder for oral solution (20 sources) [...] Start: 01-23-2019 take 1 capsule by mo [facility] twice daily tacrolimus IR (PROGRAF) 1 mg capsule Take 1 capsule by mouth twice daily. 180 capsule 3 10/09/2021 Suspended Comment on above: TAKE 1 CAPSULE BY MO UT TWICE A DAY*Z94.0* Take 1 capsule by mo ut twice daily. Take 2 capsules by m out DAILY (6 AM). Take 1 capsule by mo [facility] DAILY AT 6 PM. 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 of insulin; Translations: [RESIDENTIAL CURRENT USE OF INSULIN] Onset: 2 Episodic Other aftercare (5 sources) buttermaker helper (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 of anticoagulants; Translations: [RESIDENTIAL CURRNT [...] Other jail (current) drug therapy; Translations: [OTH PAPER SORTER AND COUNTER CURRENT DRUG THERAPY] Onset: 02-05-2022 Episodic Other aftercare (4 sources) Encounter for orthopedic aftercare following surgical amputation; Translations: [ENC ORTHOPED AFTERCARE FLW SURG AMP] Onset: 02-05-2022 Episodic Other aftercare (4 sources) buttermaker helper (current) use of antibiotics; Translations: [RESIDENTIAL CURRENT USE ANTIBIOTICS] Onset: 12-20-2021 Episodic Other aftercare (1 source) buttermaker helper (current) use of aspirin; Translations: [RESIDENTIAL CURRENT [...] Range Facility Office Visiton 05-19-2023 Follow-up visit [id number] Alex Almonte 1945 M Date Provider Department Center 05/19/2023 CAITY PALACIOS CARD [facility] Family History Problem Relation Age of Onset Cancer Mother Aneurysm Father Cancer Father Parkinsonism Father Family Status - Relation Status Age at Mother Father Level of Service:71123 ID OFFICE/OUTPATIENT ESTABLISHED LOW MDM 20 MIN Reason for Visit and Comments: Follow-up [332767] - 6 month follow up Normal [facility] HbA1c (Bld) [Mass fraction]o n 03-18-2023 Interpretation and review of laboratory results Normal [facility] POCT glycosylated hemoglobin (Hb A1C) docked deviceon 03-18-2023 HbA1c (Bld) [Mass fraction] 7.8 % [facility] CNPNon 12-25-2022 CNPN Telephone (TXCTGL) ALEX ALMONTE ([id number]) 1945 M Date Time Provider Department 12/25/22 KID[facility] TX[facility]ORDIN[facility] During your visit today, we recorded the following information about you: Duane Ryan 12/25/2022 10:41 AM Signed Labs 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 Magic Cup Lajas with lunch aspirin, enteric coated (ASPIRIN, ENTERIC [...] am? thanks! RF Pts RN at [facility] reports pts sister picks up [...] (more content not included)... Normal [facility] Office Visiton 09-09-2022 Follow-up visit [id number] Alex Almonte Kate 1945 M Date Provider Department Center 09/09/2022 1596-SARTHAK PARNELL CARD [facility] Family History Problem Relation Age of Onset Cancer Mother Aneurysm Father Cancer Father Parkinsonism Father Family Status - Relation Status Age at Mother Father Level of Service:07179 ID OFFICE/OUTPATIENT ESTABLISHED MOD MDM 30-39 MIN Normal [facility] Glucose Poct Glucometerson 0 07-20-2022 Commemt1 Glu2: Cleaned Meter Normal [facility] Comment on above: Result Comment: PERF ORMED BY: [facility] [address] [place] [address] PATHOLOGIST ASSISTANT FRONT END MANAGER JOSE F ELLIOTT M.D. Performed By: #### G MADY #### Point of Care testing , Glucose [Mass/Vol] 176 mg/dL Normal [facility] Comment on above: Result Comment: [facility] Glucose Reference Range is dependent on time and content of last meal. Glucose of more than 200 mg/dL in a nonstressed, ambulatory subject supports the diagnosis of Diabetes Mellitus. Performed By: #### G MADY #### Point of Care testing , FK506 (TACROLIMUS) WHOLE BLO ODon 07-12-2022 Tacrolimus (FK506), Blood 10.9 ng/mL Normal 2.0-20.0 [facility] Comment on above: Result Comment: Trou gh (immediately following transplant) 15.0 . Trough (steady state, 2 weeks or more after transplant): 3.0 - 8.0 . Performed by LC-MS/MS technology. Performed By: #### F K506T ####[facility] [address] [place], [place] [address]Dr. Farhat Leal CBC AUTO DIFFon 07-10-2022 BASO # 0.0 103/ul Normal 0.0-0.1 [facility] Comment on above: Performed By: #### C BC ####[facility] [address] [place], [place] [address]Dr. Farhat Leal Basophils/100 WBC (Bld) 0.5 % Normal 0.2-2.0 [facility] Comment on above: Performed By: #### C BC ####[facility] Dygt[address]xrjo[address] [place], [place] [address]Dr. Farhat Leal EO # 0.3 103/ul Normal 0.0-0.7 [facility] Comment on above: Performed By: #### C BC ####[facility] D[address] [place], [place] [address]Dr. Farhat Leal Eosinophils/100 WBC (Bld) 4.9 % Normal 0.9-7.0 [facility] Comment on above: Performed By: #### C BC ####[facility] [address] [place], [place] [address]Dr. Farhat Leal Erythrocyte distribution width (RBC) [Ratio] 13.8 % Normal 11.0-15.0 [facility] Comment on above: Performed By: #### C BC ####[facility] [address] [place] [address]Dr. Farhat Leal Hematocrit (Bld) [Volume fraction] 36.6 % Critically low 42.0-54.0 [facility] Comment on above: Performed By: #### C BC ####[facility] [address] [place], [place] [address]Dr. Farhat Leal Hemoglobin (Bld) [Mass/Vol] 12.2 g/dL Critically low 14.0-18.0 [facility] Comment on above: Performed By: #### C BC ####[facility] [address] [place], [place] [address]Dr. Farhat Leal IG # 0.01 10e3/ul Normal 0.00-0.03 [facility] Comment on above: Performed By: #### C BC ####[facility] X[address] [place], [place] [address]Dr. Madelynlorri Leal IG % 0.2 % Normal 0.0-0.5 [facility] Comment on above: Performed By: #### C BC ####[facility] [address] [place], [place] [address]Dr. Farhat Leal LYMPH # 2.2 103/ul Normal 1.2-3.8 [facility] Comment on above: Performed By: #### C BC ####[facility] I[address]urs[address] [place], [place] [address]Dr. Madelynlorri Leal Lymphocytes/100 WBC (Bld) 33.9 % Normal 20.5-60.0 [facility] Comment on above: Performed By: #### C BC ####[facility] [address] [place], [place] [address]Dr. Farhat Leal MANUAL DIFF REQ NO Normal [facility] Comment on above: Performed By: #### C BC ####[facility] [address] [place], [place] [address]Dr. Farhat Leal MCH (RBC) [Entitic mass] 31.0 pg Normal 25.9-34.0 [facility] Comment on above: Performed By: #### C BC ####[facility] [address] [place], [place] [address]Dr. Farhat Leal MCHC (RBC) [Mass/Vol] 33.3 g/dL Normal 29.9-35.2 [facility] Comment on above: Performed By: #### C BC ####[facility] [address] [place], [place] [address]Dr. Farhat Elvis MCV (RBC) [Entitic vol] 93.1 fL Normal 80.0-94.0 [facility] Comment on above: Performed By: #### C BC ####[facility] [address] [place], [place] [address]Dr. Farhat Leal MONO # 0.7 103/ul Normal 0.3-0.8 [facility] Comment on above: Performed By: #### C BC ####[facility] [address] [place], [place] [address]Dr. Farhat Leal Monocytes/100 WBC (Bld) 10.8 % Normal 1.7-12.0 [facility] Comment on above: Performed By: #### C BC ####[facility] [address] [place], [place] [address]Dr. Madelynlorri Elvis NEUT # 3.2 103/ul Normal 1.4-6.5 [facility] Comment on above: Performed By: #### C BC ####[facility] [address] [place], [place] [address]Dr. Farhat Leal Neutrophils/100 WBC (Bld) 49.7 % Normal 43.0-75.0 [facility] Comment on above: Performed By: #### C BC ####[facility] [address] [place], [place] [address]Dr. Farhat Leal Platelet mean volume (Bld) [Entitic vol] 10.9 fL Normal 9.5-13.5 [facility] Comment on above: Performed By: #### C BC ####[facility] [address] [place] [id number]. Farhat Leal PLT 195 103/ul Normal 150-450 [facility] Comment on above: Performed By: #### C BC ####[facility] [address] [place] [address]Dr. Farhat Leal RBC 3.93 106/ul Critically low 4.70-6.10 [facility] Comment on above: Performed By: #### C BC ####[facility] [address] [place] [address]Dr. Farhat Leal WBC 6.4 103/ul Normal 4.0-11.0 [facility] Comment on above: Performed By: #### C BC ####[facility] [address] [place], [place] [address]Dr. Farhat Leal MAGNESIUMon 07-10-2022 Magnesium [Mass/Vol] 1.9 mg/dL Normal 1.8-2.4 [facility] Comment on above: Performed By: #### M Anais PHOS ####[facility] [address] [place], [place] [address]Dr. Farhat Leal PHOSPHORUSon 07-10-2022 Phosphate [Mass/Vol] 4.7 mg/dL Normal 2.6-4.7 [facility] Comment on above: Performed By: #### M Anais PHOS ####[facility] [address] [place], [place] [address]Dr. Farhat Leal PROF 14(COMP METB)on 023 Albumin [Mass/Vol] 2.7 g/dL Critically low 3.4-5.0 [facility] Comment on above: Performed By: #### C MP ####[facility] [address] [place] [address]Dr. Farhat Leal Albumin/Globulin [Mass ratio] 0.8 {ratio} Normal [facility] Comment on above: Performed By: #### C MP ####[facility] [address] [place] [address]Dr. Farhat Leal ALP [Catalytic activity/Vol] 59 U/L Normal 46-116 [facility] Comment on above: Performed By: #### C MP ####[facility] [address] [place] [id number]. Farhat Leal ALT [Catalytic activity/Vol] 16 U/L Normal 16-63 [facility] Comment on above: Performed By: #### C MP ####[facility] [address] [place] [id number]. Farhat Leal Anion gap [Moles/Vol] 12.3 mmol/L Normal [facility] Comment on above: Performed By: #### C MP ####[facility] [address] [place] [id number]. Farhat Leal AST [Catalytic activity/Vol] 17 U/L Normal 15-37 [facility] Comment on above: Performed By: #### C MP ####[facility] [address] [place], [place] [address]Dr. Farhat Leal Bilirubin [Mass/Vol] 0.5 mg/dL Normal 0.2-1.0 [facility] Comment on above: Performed By: #### C MP ####[facility] [address] [place] [address]Dr. Farhat Leal Calcium [Mass/Vol] 8.5 mg/dL Normal 8.5-10.1 [facility] Comment on above: Performed By: #### C MP ####[facility] [address] [place] [address]Dr. Farhat Elvis Chloride [Moles/Vol] 104 mmol/L Normal 98-107 [facility] Comment on above: Performed By: #### C MP ####[facility] [address] [place], [place] [address]Dr. Farhat Leal CO2 [Moles/Vol] 27.6 mmol/L Normal 21.0-32.0 [facility] Comment on above: Performed By: #### C MP ####[facility] [address] [place], [place] [address]Dr. Farhat Leal Creatinine [Mass/Vol] 1.79 mg/dL Critically high 0.70-1.30 [facility] Comment on above: Performed By: #### C MP ####[facility] [address] [place], [place] [address]Lz. Farhat Leal EGFR-AF MARTINIQUAIS 45 mL/min/1.73m2 Critically low >=60 [facility] Comment on above: Performed By: #### C MP ####[facility] [address] [place] [id number]. Farhat Leal EGFR-NON AF MARTINIQUAIS 37 mL/min/1.73m2 Critically low >=60 [facility] Comment on above: Performed By: #### C MP ####[facility] [address] [place] [id number]. Farhat Leal Globulin (S) [Mass/Vol] 3.2 g/dL Normal [facility] Comment on above: Performed By: #### C MP ####[facility] [address] [place] [id number]. Farhat Leal Glucose [Mass/Vol] 203 mg/dL Critically high 74-106 [facility] Comment on above: Performed By: #### C MP ####[facility] [address] [place] [address]Dr. Farhat Leal Potassium [Moles/Vol] 3.9 mmol/L Normal 3.5-5.1 [facility] Comment on above: Performed By: #### C MP ####[facility] [address] [place] [address]Dr. Farhat Leal Protein [Mass/Vol] 5.9 g/dL Critically low 6.4-8.2 [facility] Comment on above: Performed By: #### C MP ####[facility] [address] [place] [address]Dr. Farhat Leal Sodium [Moles/Vol] 140 mmol/L Normal 136-145 [facility] Comment on above: Performed By: #### C MP ####[facility] [address] [place] [id number]. Farhat Leal Urea nitrogen [Mass/Vol] 61.0 mg/dL Critically high 7.0-18.0 [facility] Comment on above: Performed By: #### C MP ####[facility] [address] [place] [address]Dr. Farhat Leal Urea nitrogen/Creatinine [Mass ratio] 34.1 mg/mg Normal [facility] Comment on above: Performed By: #### C MP ####[facility] [address] [place] [address]Dr. Farhat Leal PROTIMEon 07-10-2022 INR Coag (PPP) [Relative time] 2.95 {INR} Normal [facility] Comment on above: Performed By: #### P T ####[facility] [address] [place], [place] [address]Dr. Farhat Leal INR GUIDELINES SEE BELOW Normal [facility] Comment on above: Result Comment: MALINA RED INR: 2.0 - 3.0 CONDITIONS NOT LISTED BELOW 2.5 - 3.5 FOR PROSTHETIC HEART VALVE REPLACEMENT 2.5 - 3.5 RECURRENT THROMBOSIS Performed By: #### P T ####[facility] [address] [place], [place] [address]Dr. Farhat Leal PT Coag (PPP) [Time] 29.4 s Critically high 9.0-11.6 [facility] Comment on above: Performed By: #### P T ####[facility] [address] [place], [place] [address]Dr. Farhat Leal FK506 (TACROLIMUS) WHOLE BLO ODon 07-07-2022 Tacrolimus (FK506), Blood 8.3 ng/mL Normal 2.0-20.0 [facility] Comment on above: Result Comment: Trou gh (immediately following transplant) 15.0 . Trough (steady state, 2 weeks or more after transplant): 3.0 - 8.0 . Performed by LC-MS/MS technology. Performed By: #### F K506T ####[facility] [address] [place], [place] [address]Dr. Farhat Leal CBC AUTO DIFFon 07-03-2022 BASO # 0.0 103/ul Normal 0.0-0.1 [facility] Comment on above: Performed By: #### C BC ####[facility] [address] [place], [place] [address]Dr. Farhat Leal Basophils/100 WBC (Bld) 0.6 % Normal 0.2-2.0 [facility] Comment on above: Performed By: #### C BC ####[facility] [address] [place] [id number]. Farhat Leal EO # 0.3 103/ul Normal 0.0-0.7 [facility] Comment on above: Performed By: #### C BC ####[facility] [address] [place] [address]Dr. Farhat Leal Eosinophils/100 WBC (Bld) 4.1 % Normal 0.9-7.0 [facility] Comment on above: Performed By: #### C BC ####[facility] [address] [place], [place] [address]Dr. Farhat Leal Erythrocyte distribution width (RBC) [Ratio] 14.0 % Normal 11.0-15.0 [facility] Comment on above: Performed By: #### C BC ####[facility] [address] [place], [place] [address]Dr. Farhat Leal Hematocrit (Bld) [Volume fraction] 35.9 % Critically low 42.0-54.0 [facility] Comment on above: Performed By: #### C BC ####[facility] [address] [place] [id number]. Farhat Leal Hemoglobin (Bld) [Mass/Vol] 12.0 g/dL Critically low 14.0-18.0 [facility] Comment on above: Performed By: #### C BC ####[facility] [address] [place] [address]Dr. Farhat Leal IG # 0.04 10e3/ul Critically high 0.00-0.03 [facility] Comment on above: Performed By: #### C BC ####[facility] [address] [place] [address]Dr. Farhat Leal IG % 0.6 % Critically high 0.0-0.5 [facility] Comment on above: Performed By: #### C BC ####[facility] [address] [place] [address]Dr. Farhat Leal LYMPH # 1.5 103/ul Normal 1.2-3.8 [facility] Comment on above: Performed By: #### C BC ####[facility] [address]br[address] [place] [address]Dr. Farhat Leal Lymphocytes/100 WBC (Bld) 21.5 % Normal 20.5-60.0 [facility] Comment on above: Performed By: #### C BC ####[facility] [address] [place] [id number]. Farhat Elvis MANUAL DIFF REQ NO Normal [facility] Comment on above: Performed By: #### C BC ####[facility] [address] [place] [id number]. Farhat Elvis MCH (RBC) [Entitic mass] 30.8 pg Normal 25.9-34.0 [facility] Comment on above: Performed By: #### C BC ####[facility] [address] [place] [address]Dr. Farhat Leal MCHC (RBC) [Mass/Vol] 33.4 g/dL Normal 29.9-35.2 [facility] Comment on above: Performed By: #### C BC ####[facility] [address] [place] [address]Dr. Farhat Elvis MCV (RBC) [Entitic vol] 92.1 fL Normal 80.0-94.0 [facility] Comment on above: Performed By: #### C BC ####[facility] [address] [place] [address]Dr. Farhat Elvis MONO # 0.6 103/ul Normal 0.3-0.8 [facility] Comment on above: Performed By: #### C BC ####[facility] [address] [place] [address]Dr. Faraht Elvis Monocytes/100 WBC (Bld) 8.7 % Normal 1.7-12.0 [facility] Comment on above: Performed By: #### C BC ####[facility] [address] [place] [address]Dr. Farhat Leal NEUT # 4.4 103/ul Normal 1.4-6.5 [facility] Comment on above: Performed By: #### C BC ####[facility] [address] [place] [address]Dr. Farhat Leal Neutrophils/100 WBC (Bld) 64.5 % Normal 43.0-75.0 [facility] Comment on above: Performed By: #### C BC ####[facility] [address]ex[address] [place] [address]Dr. Farhat Leal Platelet mean volume (Bld) [Entitic vol] 10.1 fL Normal 9.5-13.5 [facility] Comment on above: Performed By: #### C BC ####[facility] [address] [place] [address]Dr. Faraht Elvis PLT 177 103/ul Normal 150-450 [facility] Comment on above: Performed By: #### C BC ####[facility] [address] [place] [address]Dr. Farhat Elvis RBC 3.90 106/ul Critically low 4.70-6.10 [facility] Comment on above: Performed By: #### C BC ####[facility] [address] [place] [address]Dr. Farhat Leal WBC 6.8 103/ul Normal 4.0-11.0 [facility] Comment on above: Performed By: #### C BC ####[facility] [address]zz[address] [place] [address]Dr. Farhat Leal PROF 14(COMP METB)on 023 Albumin [Mass/Vol] 2.8 g/dL Critically low 3.4-5.[address] [facility] Comment on above: Performed By: #### C MP ####[facility] [address] [place] [address]Dr. Farhat Elvis Albumin/Globulin [Mass ratio] 0.8 {ratio} Normal [facility] Comment on above: Performed By: #### C MP ####[facility] [address] [place] [address]Dr. Farhat Leal ALP [Catalytic activity/Vol] 68 U/L Normal 46-116 [facility] Comment on above: Performed By: #### C MP ####[facility] [address]ru[address] [place] [address]Dr. Farhat Leal ALT [Catalytic activity/Vol] 20 U/L Normal 16-63 [facility] Comment on above: Performed By: #### C MP ####[facility] [address] [place], [place] [address]Dr. Farhat Leal Anion gap [Moles/Vol] 11.1 mmol/L Normal [facility] Comment on above: Performed By: #### C MP ####[facility] Qyotwgbavd[address] [place], [place] [address]Dr. Farhat Leal AST [Catalytic activity/Vol] 22 U/L Normal 15-37 [facility] Comment on above: Performed By: #### C MP ####[facility] Mlloijstsc35[address] [place], [place] [address]Dr. Farhat Leal Bilirubin [Mass/Vol] 0.4 mg/dL Normal 0.2-1.0 [facility] Comment on above: Performed By: #### C MP ####[facility] Mvcjxevjmg[address] [place], [place] [address]Dr. Farhat Leal Calcium [Mass/Vol] 8.5 mg/dL Normal 8.5-10.1 [facility] Comment on above: Performed By: #### C MP ####[facility] [address] [place] [address]Dr. Farhat Leal Chloride [Moles/Vol] 106 mmol/L Normal 98-107 [facility] Comment on above: Performed By: #### C MP ####[facility] Doezqshgxc7414[address] [place], [place] [address]Dr. Farhat Leal CO2 [Moles/Vol] 29.1 mmol/L Normal 21.0-32.0 [facility] Comment on above: Performed By: #### C MP ####[facility] Hleuskrayl[address] [place], [place] [address]Dr. Farhat Leal Creatinine [Mass/Vol] 1.70 mg/dL Critically high 0.70-1.30 [facility] Comment on above: Performed By: #### C MP ####[facility] [address]uxclx[address] [place] [address]Dr. Farhat Leal EGFR-AF MARTINIQUAIS 48 mL/min/1.73m2 Critically low >=60 [facility] Comment on above: Performed By: #### C MP ####[facility] Zekeyzofed[address] [place] [address]Dr. Farhat Leal EGFR-NON AF MARTINIQUAIS 39 mL/min/1.73m2 Critically low >=60 [facility] Comment on above: Performed By: #### C MP ####[facility] Ouiakdkjmi9[address] [place], [place] [address]Dr. Farhat Leal Globulin (S) [Mass/Vol] 3.6 g/dL Normal [facility] Comment on above: Performed By: #### C MP ####[facility] Euebidpeus3727[address] [place], [place] [address]Dr. Farhat Leal Glucose [Mass/Vol] 312 mg/dL Critically high 74-106 T [facility] Comment on above: Performed By: #### C MP ####[facility] Vnhwitfnol4026[address] [place], [place] [address]Dr. Farhat Leal Potassium [Moles/Vol] 4.2 mmol/L Normal 3.5-5.1 [facility] Comment on above: Performed By: #### C MP ####[facility] Lqunsenpwz9755[address] [place], [place] [address]Dr. Farhat Elvis Protein [Mass/Vol] 6.4 g/dL Normal 6.4-8.2 [facility] Comment on above: Performed By: #### C MP ####[facility] Pskxoxnvgt8889[address] [place], [place] [address]Dr. Farhat Leal Sodium [Moles/Vol] 142 mmol/L Normal 136-145 [facility] Comment on above: Performed By: #### C MP ####[facility] Ivysjkpwpa[address] [place], [place] [address]Dr. Farhat Leal Urea nitrogen [Mass/Vol] 49.0 mg/dL Critically high 7.0-18.0 [facility] Comment on above: Performed By: #### C MP ####[facility] Sddygyvokn032[address] [place], [place] [address]Dr. aFrhat Leal Urea nitrogen/Creatinine [Mass ratio] 28.8 mg/mg Normal [facility] Comment on above: Performed By: #### C MP ####[facility] Gvmlyzmwwx[address] [place], [place] [address]Dr. Farhat Leal PROTIMEon 07-03-2022 INR Coag (PPP) [Relative time] 2.23 {INR} Normal [facility] Comment on above: Performed By: #### P T ####[facility] Kplueibzjl272[address] [place], [place] [address]Dr. Farhat Leal INR GUIDELINES SEE BELOW Normal [facility] Comment on above: Result Comment: MALINA RED INR: 2.0 - 3.0 CONDITIONS NOT LISTED BELOW 2.5 - 3.5 FOR PROSTHETIC HEART VALVE REPLACEMENT 2.5 - 3.5 RECURRENT THROMBOSIS Performed By: #### P T ####[facility] Hjinqnwxly[address] [place], [place] [address]Dr. Farhat Leal PT Coag (PPP) [Time] 22.6 s Critically high 9.0-11.6 [facility] Comment on above: Performed By: #### P T ####[facility] Ecgtrmtdal743[address] [place], [place] [address]Dr. Farhat Leal FK506 (TACROLIMUS) WHOLE BLO ODon 06-29-2022 Tacrolimus (FK506), Blood 12.2 ng/mL Normal 2.0-20.0 [facility] Comment on above: Result Comment: Trou gh (immediately following transplant) 15.0 . Trough (steady state, 2 weeks or more after transplant): 3.0 - 8.0 . Performed by LC-MS/MS technology. Performed By: #### F K506T ####[facility] Gfbfgvzkit57[address] [place], [place] [address]DrSkylar Leal CBC AUTO DIFFon 05-12-2023 BASO # 0.0 103/ul Normal 0.0-0.1 [facility] Comment on above: Performed By: #### C BC ####[facility] [address] [place] [address]Dr. Farhat Leal Basophils/100 WBC (Bld) 0.5 % Normal 0.2-2.0 [facility] Comment on above: Performed By: #### C BC ####[facility] Rjwxlvdpzs8324[address] [place], [place] [address]DrSkylar Leal EO # 0.3 103/ul Normal 0.0-0.7 [facility] Comment on above: Performed By: #### C BC ####[facility] Kdgzfdmftl9[address] [place], [place] [address]Dr. Farhat Leal Eosinophils/100 WBC (Bld) 4.3 % Normal 0.9-7.0 [facility] Comment on above: Performed By: #### C BC ####[facility] Qeqdvzhhcl9876[address] [place], [place] [address]Dr. Farhat Leal Erythrocyte distribution width (RBC) [Ratio] 14.1 % Normal 11.0-15.0 [facility] Comment on above: Performed By: #### C BC ####[facility] Zssdyuqkof[address] [place], [place] [address]Dr. Farhat Leal Hematocrit (Bld) [Volume fraction] 35.4 % Critically low 42.0-54.0 [facility] Comment on above: Performed By: #### C BC ####[facility] Uxqkqebgft026[address] [place], [place] [address]Dr. Farhat Leal Hemoglobin (Bld) [Mass/Vol] 11.8 g/dL Critically low 14.0-18.0 [facility] Comment on above: Performed By: #### C BC ####[facility] Dkymbllxxx[address] [place], [place] [address]DrSkylar Leal IG # 0.02 10e3/ul Normal 0.00-0.03 [facility] Comment on above: Performed By: #### C BC ####[facility] Llmwotqbpf4200[address] [place], [place] [address]Dr. Farhat Leal IG % 0.3 % Normal 0.0-0.5 [facility] Comment on above: Performed By: #### C BC ####[facility] Vxft[address]yezy[address] [place] [address]DrSkylar Leal LYMPH # 2.4 103/ul Normal 1.2-3.8 [facility] Comment on above: Performed By: #### C BC ####[facility] I[address]mowjf[address] [place] [address]Dr. Farhat Leal Lymphocytes/100 WBC (Bld) 40.4 % Normal 20.5-60.0 [facility] Comment on above: Performed By: #### C BC ####[facility] Fhnyyzucmy5438[address] [place], [place] [address]DrSkylar Leal MANUAL DIFF REQ NO Normal [facility] Comment on above: Performed By: #### C BC ####[facility] E[address]xf[address]oww[address] [place] [address]DrSkylar Leal MCH (RBC) [Entitic mass] 31.0 pg Normal 25.9-34.0 [facility] Comment on above: Performed By: #### C BC ####[facility] Plcalxwrqz[address] [place], [place] [address]DrSkylar Leal MCHC (RBC) [Mass/Vol] 33.3 g/dL Normal 29.9-35.2 [facility] Comment on above: Performed By: #### C BC ####[facility] Wffnoltuju7094[address] [place], [place] [address]DrSkylar Leal MCV (RBC) [Entitic vol] 92.9 fL Normal 80.0-94.0 [facility] Comment on above: Performed By: #### C BC ####[facility] Kydgvoarnn5[address] [place], [place] [address]DrSkylar Leal MONO # 0.7 103/ul Normal 0.3-0.8 [facility] Comment on above: Performed By: #### C BC ####[facility] Auqsindjic[address] [place], [place] [address]DrSkylar Leal Monocytes/100 WBC (Bld) 11.1 % Normal 1.7-12.0 [facility] Comment on above: Performed By: #### C BC ####[facility] [address]jdpg[address] [place] [address]Dr. Farhat Leal NEUT # 2.6 103/ul Normal 1.4-6.5 [facility] Comment on above: Performed By: #### C BC ####[facility] Tejunxlgqo4[address] [place] [address]DrSkylar Leal Neutrophils/100 WBC (Bld) 43.4 % Normal 43.0-75.0 [facility] Comment on above: Performed By: #### C BC ####[facility] Ev[address]zyxpst7[address] [place] [address]DrSkylar Leal Platelet mean volume (Bld) [Entitic vol] 10.4 fL Normal 9.5-13.5 [facility] Comment on above: Performed By: #### C BC ####[facility] U[address]esnyveq9942[address] [place], [place] [address]DrSkylar Leal PLT 211 103/ul Normal 150-450 [facility] Comment on above: Performed By: #### C BC ####[facility] Sxollcqxdc[address] [place], [place] [address]DrSkylar Leal RBC 3.81 106/ul Critically low 4.70-6.10 [facility] Comment on above: Performed By: #### C BC ####[facility] [address]ekxh[address] [place] [address]DrSkylar Leal WBC 6.0 103/ul Normal 4.0-11.0 [facility] Comment on above: Performed By: #### C BC ####[facility] C[address]vscqdn08[address] [place] [address]DrSkylar Leal PROF 14(COMP METB)on 023 Albumin [Mass/Vol] 2.6 g/dL Critically low 3.4-5.0 [facility] Comment on above: Performed By: #### C MP ####[facility] Xoomjnduyi2717[address] [place], [place] [address]DrSkylar Dougherty Elvis Albumin/Globulin [Mass ratio] 0.8 {ratio} Normal [facility] Comment on above: Performed By: #### C MP ####[facility] L[address]vxxe[address] [place] [address]Dr. Farhat Elvis ALP [Catalytic activity/Vol] 64 U/L Normal 46-116 [facility] Comment on above: Performed By: #### C MP ####[facility] Bdxdhaunxe[address] [place] [address]Dr. Farhat Elvis ALT [Catalytic activity/Vol] 18 U/L Normal 16-63 [facility] Comment on above: Performed By: #### C MP ####[facility] Mjhwwtoolj5868[address] [place], [place] [address]Dr. Farhat Leal Anion gap [Moles/Vol] 10.2 mmol/L Normal [facility] Comment on above: Performed By: #### C MP ####[facility] Bsitvhahcc[address] [place], [place] [address]Dr. Farhat Elvis AST [Catalytic activity/Vol] 16 U/L Normal 15-37 [facility] Comment on above: Performed By: #### C MP ####[facility] Iwjrjukime6394[address] [place], [place] [address]Dr. Farhat Leal Bilirubin [Mass/Vol] 0.6 mg/dL Normal 0.2-1.0 [facility] Comment on above: Performed By: #### C MP ####[facility] Wvewaqqnul2827[address] [place], [place] [address]Dr. Farhat Leal Calcium [Mass/Vol] 8.5 mg/dL Normal 8.5-10.1 [facility] Comment on above: Performed By: #### C MP ####[facility] Qtekzlmcfs0475[address] [place], [place] [address]Dr. Farhat Leal Chloride [Moles/Vol] 106 mmol/L Normal 98-107 [facility] Comment on above: Performed By: #### C MP ####[facility] A[address]yhxkcbh[address] [place] [address]Dr. Farhat Leal CO2 [Moles/Vol] 29.8 mmol/L Normal 21.0-32.0 [facility] Comment on above: Performed By: #### C MP ####[facility] Hlpivpcjvz[address] [place] [address]Dr. Farhat Leal Creatinine [Mass/Vol] 1.60 mg/dL Critically high 0.70-1.30 [facility] Comment on above: Performed By: #### C MP ####[facility] Kfhjhxeqpq43[address] [place] [address]Dr. Farhat Leal EGFR-AF MARTINIQUAIS 51 mL/min/1.73m2 Critically low >=60 [facility] Comment on above: Performed By: #### C MP ####[facility] Jjdmmcssny6536[address] [place], [place] [address]Dr. Farhat Leal EGFR-NON AF MARTINIQUAIS 42 mL/min/1.73m2 Critically low >=60 [facility] Comment on above: Performed By: #### C MP ####[facility] Rpuvvvsekj0478[address] [place], [place] [address]Dr. Farhat Leal Globulin (S) [Mass/Vol] 3.4 g/dL Normal [facility] Comment on above: Performed By: #### C MP ####[facility] Glwbehevtg0182[address] [place], [place] [address]Dr. Farhat Leal Glucose [Mass/Vol] 178 mg/dL Critically high 74-106 T [facility] Comment on above: Performed By: #### C MP ####[facility] Wlpjlyxrwb09[address] [place], [place] [address]Dr. Farhat Leal Potassium [Moles/Vol] 4.0 mmol/L Normal 3.5-5.1 [facility] Comment on above: Performed By: #### C MP ####[facility] Jpbeyeisoh9[address] [place], [place] [address]Dr. Farhat Leal Protein [Mass/Vol] 6.0 g/dL Critically low 6.4-8.2 [facility] Comment on above: Performed By: #### C MP ####[facility] Puekxbmgvk9506[address] [place], [place] [address]Dr. Farhat Leal Sodium [Moles/Vol] 142 mmol/L Normal 136-145 [facility] Comment on above: Performed By: #### C MP ####[facility] [address]zoilp[address] [place] [address]Dr. Farhat Leal Urea nitrogen [Mass/Vol] 49.0 mg/dL Critically high 7.0-18.0 [facility] Comment on above: Performed By: #### C MP ####[facility] Ebvsteinfn[address] [place] [address]Dr. Farhat Leal Urea nitrogen/Creatinine [Mass ratio] 30.6 mg/mg Normal [facility] Comment on above: Performed By: #### C MP ####[facility] Ttrrqxlcqp5[address] [place], [place] [address]Dr. Farhat Leal PROTIMEon 06-26-2022 INR Coag (PPP) [Relative time] 1.77 {INR} Normal [facility] Comment on above: Performed By: #### P T ####[facility] Ufznhxosnv1564[address] [place], [place] [address]Dr. Farhat Leal INR GUIDELINES SEE BELOW Normal [facility] Comment on above: Result Comment: MALINA RED INR: 2.0 - 3.0 CONDITIONS NOT LISTED BELOW 2.5 - 3.5 FOR PROSTHETIC HEART VALVE REPLACEMENT 2.5 - 3.5 RECURRENT THROMBOSIS Performed By: #### P T ####[facility] Lruxnlyclq36[address] [place], [place] [address]Dr. Farhat Leal PT Coag (PPP) [Time] 18.2 s Critically high 9.0-11.6 [facility] Comment on above: Performed By: #### P T ####[facility] Bzmxtowdnu0437[address] [place], [place] [address]Dr. Farhat Leal FK506 (TACROLIMUS) WHOLE BLO ODon 06-22-2022 Tacrolimus (FK506), Blood 24.5 ng/mL Invalid Interpretation Code 2.0-20.0 [facility] Comment on above: Result Comment: Trou gh (immediately following transplant) 15.0 . Trough (steady state, 2 weeks or more after transplant): 3.0 - 8.0 . Performed by LC-MS/MS technology.Patient drug level exceeds published reference range. Evaluateclinically for signs of potential toxicity. Performed By: #### F K506T ####[facility] [address]ovoqgs[address] [place] [address]Dr. Farhat Leal CBC AUTO DIFFon 06-19-2022 BASO # 0.1 103/ul Normal 0.0-0.1 [facility] Comment on above: Performed By: #### C BC ####[facility] Rcfsqaixqb03[address] [place] [address]Dr. Farhat Elvis Basophils/100 WBC (Bld) 0.7 % Normal 0.2-2.0 [facility] Comment on above: Performed By: #### C BC ####[facility] Cftzgqzfuc2764[address] [place], [place] [address]Dr. Farhat Leal EO # 0.4 103/ul Normal 0.0-0.7 [facility] Comment on above: Performed By: #### C BC ####[facility] Nzjmegfspt4775[address] [place], [place] [address]Dr. Farhat Elvis Eosinophils/100 WBC (Bld) 5.7 % Normal 0.9-7.0 [facility] Comment on above: Performed By: #### C BC ####[facility] Abctdhrxzm2594[address] [place], [place] [address]Dr. Farhat Leal Erythrocyte distribution width (RBC) [Ratio] 14.5 % Normal 11.0-15.0 [facility] Comment on above: Performed By: #### C BC ####[facility] Tzfjidjmao[address] [place], [place] [address]Dr. Farhat Leal Hematocrit (Bld) [Volume fraction] 34.1 % Critically low 42.0-54.0 [facility] Comment on above: Performed By: #### C BC ####[facility] Dzdvswzeho8216[address] [place], [place] [address]Dr. Farhat Leal Hemoglobin (Bld) [Mass/Vol] 11.3 g/dL Critically low 14.0-18.0 [facility] Comment on above: Performed By: #### C BC ####[facility] Esgatjpkal6974[address] [place], [place] [address]DrSkylar Leal IG # 0.02 10e3/ul Normal 0.00-0.03 [facility] Comment on above: Performed By: #### C BC ####[facility] Ovuhvjggby[address] [place] [address]DrSkylar Leal IG % 0.3 % Normal 0.0-0.5 [facility] Comment on above: Performed By: #### C BC ####[facility] Bdesreryxv5421 [place] [address]DrSkylar Leal LYMPH # 3.1 103/ul Normal 1.2-3.8 [facility] Comment on above: Performed By: #### C BC ####[facility] Zbitjmppfj9295[address] [place], [place] [address]DrSkylar Leal Lymphocytes/100 WBC (Bld) 40.6 % Normal 20.5-60.0 [facility] Comment on above: Performed By: #### C BC ####[facility] Wmounpdkgv[address] [place], [place] [address]DrSkylar Leal MANUAL DIFF REQ NO Normal [facility] Comment on above: Performed By: #### C BC ####[facility] Iofisxfqzl4415[address] [place], [place] [address]DrSkylar Leal MCH (RBC) [Entitic mass] 30.6 pg Normal 25.9-34.0 [facility] Comment on above: Performed By: #### C BC ####[facility] Wgxcawqvgf5169[address] [place], [place] [address]DrSkylar Leal MCHC (RBC) [Mass/Vol] 33.1 g/dL Normal 29.9-35.2 [facility] Comment on above: Performed By: #### C BC ####[facility] Nwmxecrnwx49[address] [place] [address]DrSkylar Leal MCV (RBC) [Entitic vol] 92.4 fL Normal 80.0-94.0 [facility] Comment on above: Performed By: #### C BC ####[facility] Fmeixyzvcq[address] [place], [place] [address]DrSkylar Leal MONO # 0.8 103/ul Normal 0.3-0.8 [facility] Comment on above: Performed By: #### C BC ####[facility] [address]hfkzen[address] [place] [id number]. Farhat Leal Monocytes/100 WBC (Bld) 10.6 % Normal 1.7-12.0 [facility] Comment on above: Performed By: #### C BC ####[facility] Eklxyhxrkp30[address] [place] [address]Dr. Farhat Leal NEUT # 3.2 103/ul Normal 1.4-6.5 [facility] Comment on above: Performed By: #### C BC ####[facility] Altfmnyclx48[address] [place] [address]Dr. Farhat Leal Neutrophils/100 WBC (Bld) 42.1 % Critically low 43.0-75.0 [facility] Comment on above: Performed By: #### C BC ####[facility] Sjqfokgpls8025[address] [place], [place] [address]Dr. Farhat Leal Platelet mean volume (Bld) [Entitic vol] 10.6 fL Normal 9.5-13.5 [facility] Comment on above: Performed By: #### C BC ####[facility] [address]rbnm[address] [place], [place] [address]Dr. Farhat Leal PLT 187 103/ul Normal 150-450 [facility] Comment on above: Performed By: #### C BC ####[facility] Zrypkoglyc[address] [place], [place] [address]Dr. Farhat Leal RBC 3.69 106/ul Critically low 4.70-6.10 [facility] Comment on above: Performed By: #### C BC ####[facility] Pts[address]zybjzr7[address] [place] [id number]. Farhat Leal WBC 7.7 103/ul Normal 4.0-11.0 [facility] Comment on above: Performed By: #### C BC ####[facility] Vyumudrrys[address] [place], [place] [address]DrSkylar Farhat Elvis PROF 14(COMP METB)on 023 Albumin [Mass/Vol] 2.5 g/dL Critically low 3.4-5.[address] [facility] Comment on above: Performed By: #### C MP ####[facility] Wjnrinroqv037[address] [place] [address]Dr. Farhat Leal Albumin/Globulin [Mass ratio] 0.8 {ratio} Normal [facility] Comment on above: Performed By: #### C MP ####[facility] Ndwzwldrmu8548 [place] [address]Dr. Farhat Leal ALP [Catalytic activity/Vol] 60 U/L Normal 46-116 [facility] Comment on above: Performed By: #### C MP ####[facility] Dfjkayvasr6[address] [place], [place] [address]Dr. Farhat Leal ALT [Catalytic activity/Vol] 16 U/L Normal 16-63 [facility] Comment on above: Performed By: #### C MP ####[facility] Kfjsxecxps66[address] [place], [place] [address]Dr. Farhat Leal Anion gap [Moles/Vol] 9.1 mmol/L Normal [facility] Comment on above: Performed By: #### C MP ####[facility] Rlauytbzlb[address] [place], [place] [address]Dr. Farhat Leal AST [Catalytic activity/Vol] 31 U/L Normal 15-37 [facility] Comment on above: Performed By: #### C MP ####[facility] Hwzucnnqnq398[address] [place], [place] [address]Dr. Farhat Leal Bilirubin [Mass/Vol] 0.3 mg/dL Normal 0.2-1.0 [facility] Comment on above: Performed By: #### C MP ####[facility] Poocmpghxp4234[address] [place], [place] [address]Dr. Farhat Leal Calcium [Mass/Vol] 8.2 mg/dL Critically low 8.5-10.[address] [facility] Comment on above: Performed By: #### C MP ####[facility] Wzbabljeet[address] [place], [place] [address]Dr. Farhat Leal Chloride [Moles/Vol] 106 mmol/L Normal 98-107 [facility] Comment on above: Performed By: #### C MP ####[facility] Uybucrthxl6143 [place] [address]Dr. Farhat Leal CO2 [Moles/Vol] 27.0 mmol/L Normal 21.0-32.0 [facility] Comment on above: Performed By: #### C MP ####[facility] Tqnzpzmupf7[address] [place], [place] [address]Dr. Farhat Leal Creatinine [Mass/Vol] 1.51 mg/dL Critically high 0.70-1.30 [facility] Comment on above: Performed By: #### C MP ####[facility] Jpedunjmxn1339[address] [place], [place] [address]Dr. Farhat Leal EGFR-AF MARTINIQUAIS 55 mL/min/1.73m2 Critically low >=60 [facility] Comment on above: Performed By: #### C MP ####[facility] Rctnixpzox9036[address] [place], [place] [address]Dr. Farhat Leal EGFR-NON AF MARTINIQUAIS 45 mL/min/1.73m2 Critically low >=60 [facility] Comment on above: Performed By: #### C MP ####[facility] Gbrsxvyglx9[address] [place], [place] [address]Dr. Farhat Leal Globulin (S) [Mass/Vol] 3.2 g/dL Normal [facility] Comment on above: Performed By: #### C MP ####[facility] G[address]zqxvgsw[address] [place], [place] [address]Dr. Farhat Leal Glucose [Mass/Vol] 165 mg/dL Critically high 74-106 [facility] Comment on above: Performed By: #### C MP ####[facility] D[address]kqadbuoj95[address] [place], [place] [address]Dr. Farhat Leal Potassium [Moles/Vol] 4.1 mmol/L Normal 3.5-5.1 [facility] Comment on above: Performed By: #### C MP ####[facility] Mwlnfozoic[address] [place], [place] [address]Dr. Farhat Leal Protein [Mass/Vol] 5.7 g/dL Critically low 6.4-8.2 [facility] Comment on above: Performed By: #### C MP ####[facility] Gxrozpumfr26[address] [place] [address]Dr. Farhat Leal Sodium [Moles/Vol] 138 mmol/L Normal 136-145 [facility] Comment on above: Performed By: #### C MP ####[facility] [address] [place] [address]Dr. Farhat Leal Urea nitrogen [Mass/Vol] 51.0 mg/dL Critically high 7.0-18.0 [facility] Comment on above: Performed By: #### C MP ####[facility] Kuemj[address]fz[address] [place], [place] [address]Dr. Farhat Leal Urea nitrogen/Creatinine [Mass ratio] 33.8 mg/mg Normal [facility] Comment on above: Performed By: #### C MP ####[facility] Rtupzpqzzm[address] [place], [place] [address]Dr. Farhat Leal FK506 (TACROLIMUS) WHOLE BLO ODon 06-15-2022 Tacrolimus (FK506), Blood 16.4 ng/mL Normal 2.0-20.0 [facility] Comment on above: Result Comment: Trou gh (immediately following transplant) 15.0 . Trough (steady state, 2 weeks or more after transplant): 3.0 - 8.0 . Performed by LC-MS/MS technology. Performed By: #### F K506T ####[facility] Jktmv[address]zehs[address] [place], [place] [address]Dr. Farhat Leal PROTIMEon 06-15-2022 INR Coag (PPP) [Relative time] 1.64 {INR} Normal [facility] Comment on above: Performed By: #### P T ####[facility] Sewe[address]gc[address] [place], [place] [address]Dr. Farhat Leal INR GUIDELINES SEE BELOW Normal [facility] Comment on above: Result Comment: MALINA RED INR: 2.0 - 3.0 CONDITIONS NOT LISTED BELOW 2.5 - 3.5 FOR PROSTHETIC HEART VALVE REPLACEMENT 2.5 - 3.5 RECURRENT THROMBOSIS Performed By: #### P T ####[facility] [address] [place] [id number]. Farhat Leal PT Coag (PPP) [Time] 16.9 s Critically high 9.0-11.6 [facility] Comment on above: Performed By: #### P T ####[facility] [address]bt[address] [place] [address]Dr. Farhat Leal CBC AUTO DIFFon 06-12-2022 BASO # 0.0 103/ul Normal 0.0-0.1 [facility] Comment on above: Performed By: #### C BC ####[facility] Juabvxyinh[address] [place], [place] [address]Dr. Farhat Leal Basophils/100 WBC (Bld) 0.4 % Normal 0.2-2.0 [facility] Comment on above: Performed By: #### C BC ####[facility] Mcnrmdglup[address] [place], [place] [address]Dr. Farhat Leal EO # 0.4 103/ul Normal 0.0-0.7 [facility] Comment on above: Performed By: #### C BC ####[facility] Pmyceqhpuh[address] [place], [place] [address]Dr. Farhat Leal Eosinophils/100 WBC (Bld) 5.4 % Normal 0.9-7.0 [facility] Comment on above: Performed By: #### C BC ####[facility] Surnaqquyv[address] [place], [place] [address]Dr. Farhat Leal Erythrocyte distribution width (RBC) [Ratio] 14.7 % Normal 11.0-15.0 [facility] Comment on above: Performed By: #### C BC ####[facility] Umuamzgyry[address] [place], [place] [address]Dr. Farhat Leal Hematocrit (Bld) [Volume fraction] 34.8 % Critically low 42.0-54.0 [facility] Comment on above: Performed By: #### C BC ####[facility] Fgsphmkzxz[address] [place], [place] [address]Dr. Farhat Leal Hemoglobin (Bld) [Mass/Vol] 11.7 g/dL Critically low 14.0-18.0 [facility] Comment on above: Performed By: #### C BC ####[facility] [address] [place] [address]Dr. Madelynlorri Elvis IG # 0.02 10e3/ul Normal 0.00-0.03 [facility] Comment on above: Performed By: #### C BC ####[facility] Qrxlqfutgy[address] [place] [address]Dr. Farhat Leal IG % 0.3 % Normal 0.0-0.5 [facility] Comment on above: Performed By: #### C BC ####[facility] Lztnuguiqr[address] [place], [place] [address]Dr. Farhat Leal LYMPH # 2.5 103/ul Normal 1.2-3.8 [facility] Comment on above: Performed By: #### C BC ####[facility] Phhpbstfbq[address] [place], [place] [address]Dr. Farhat Leal Lymphocytes/100 WBC (Bld) 36.8 % Normal 20.5-60.0 [facility] Comment on above: Performed By: #### C BC ####[facility] [address]ut[address] [place] [address]Dr. Farhat Leal MANUAL DIFF REQ NO Normal [facility] Comment on above: Performed By: #### C BC ####[facility] Inxx[address]ikw[address] [place] [address]Dr. Farhat Leal MCH (RBC) [Entitic mass] 30.9 pg Normal 25.9-34.0 [facility] Comment on above: Performed By: #### C BC ####[facility] Hyxopaqdtn[address] [place], [place] [address]Dr. Farhat Leal MCHC (RBC) [Mass/Vol] 33.6 g/dL Normal 29.9-35.2 [facility] Comment on above: Performed By: #### C BC ####[facility] [address]cl[address]ii[address] [place] [address]Dr. Farhat Leal MCV (RBC) [Entitic vol] 91.8 fL Normal 80.0-94.0 [facility] Comment on above: Performed By: #### C BC ####[facility] [address] [place] [phone]. Farhat Leal MONO # 0.8 103/ul Normal 0.3-0.8 [facility] Comment on above: Performed By: #### C BC ####[facility] [address]wovd[address] [place] [id number]. Farhat Leal Monocytes/100 WBC (Bld) 11.9 % Normal 1.7-12.0 [facility] Comment on above: Performed By: #### C BC ####[facility] [address]fim[address] [place] [address]Dr. Farhat Leal NEUT # 3.1 103/ul Normal 1.4-6.5 [facility] Comment on above: Performed By: #### C BC ####[facility] Rpmlkg[address]qu8[address] [place] [address]Dr. Farhat Leal Neutrophils/100 WBC (Bld) 45.2 % Normal 43.0-75.0 [facility] Comment on above: Performed By: #### C BC ####[facility] [address] [place] [address]Dr. Farhat Leal Platelet mean volume (Bld) [Entitic vol] 10.5 fL Normal 9.5-13.5 [facility] Comment on above: Performed By: #### C BC ####[facility] [address]oliisi[address] [place] [phone]. Farhat Leal PLT 175 103/ul Normal 150-450 [facility] Comment on above: Performed By: #### C BC ####[facility] H[address]rzqhv[address] [place] [phone]. Farhat Leal RBC 3.79 106/ul Critically low 4.70-6.10 [facility] Comment on above: Performed By: #### C BC ####[facility] Z[address]hwkepf67[address] [place] [phone]. Farhat Leal WBC 6.8 103/ul Normal 4.0-11.0 [facility] Comment on above: Performed By: #### C BC ####[facility] [address]ijt[address] [place] [address]Dr. Madelynlorri Leal MAGNESIUMon 06-12-2022 Magnesium [Mass/Vol] 1.6 mg/dL Critically low 1.8-2.4 [facility] Comment on above: Performed By: #### C MP, MG, PHOS ####[facility] [address]jthmp[address] [place] [address]Dr. Farhat Leal PHOSPHORUSon 06-12-2022 Phosphate [Mass/Vol] 3.8 mg/dL Normal 2.6-4.7 [facility] Comment on above: Performed By: #### C MP, MG, PHOS ####[facility] Fzbtwshutj[address] [place], [place] [address]Dr. Farhat Leal PROF 14(COMP METB)on 023 Albumin [Mass/Vol] 2.6 g/dL Critically low 3.4-5.0 [facility] Comment on above: Performed By: #### C MP, MG, PHOS ####[facility] Gqwdlvmzlh[address] [place], [place] [address]Dr. Farhat Leal Albumin/Globulin [Mass ratio] 0.8 {ratio} Normal [facility] Comment on above: Performed By: #### C MP, MG, PHOS ####[facility] [address] [place] [address]Dr. Farhat Leal ALP [Catalytic activity/Vol] 64 U/L Normal 46-116 [facility] Comment on above: Performed By: #### C MP, MG, PHOS ####[facility] Y[address]vhurt[address] [place] [address]Dr. Farhat Leal ALT [Catalytic activity/Vol] 18 U/L Normal 16-63 [facility] Comment on above: Performed By: #### C MP, MG, PHOS ####[facility] [address]ts[address]nujp[address] [place] [address]Dr. Farhat Leal Anion gap [Moles/Vol] 12.9 mmol/L Normal [facility] Comment on above: Performed By: #### C MP, MG, PHOS ####[facility] Gstslnkcet[address] [place] [address]Dr. Farhat Leal AST [Catalytic activity/Vol] 18 U/L Normal 15-37 [facility] Comment on above: Performed By: #### C MP, MG, PHOS ####[facility] X[address]qwpybtct[address] [place] [address]Dr. Farhat Leal Bilirubin [Mass/Vol] 0.4 mg/dL Normal 0.2-1.0 [facility] Comment on above: Performed By: #### C MP, MG, PHOS ####[facility] J[address]vrjzkes25[address] [place] [address]Dr. Farhat Leal Calcium [Mass/Vol] 8.7 mg/dL Normal 8.5-10.1 [facility] Comment on above: Performed By: #### C MP, MG, PHOS ####[facility] Rlzgaaavoo[address] [place], [place] [address]Dr. Farhat Leal Chloride [Moles/Vol] 105 mmol/L Normal 98-107 [facility] Comment on above: Performed By: #### C MP, MG, PHOS ####[facility] Jxmnfhkzsk[address] [place], [place] [address]Dr. Farhat Leal CO2 [Moles/Vol] 27.9 mmol/L Normal 21.0-32.0 [facility] Comment on above: Performed By: #### C MP, MG, PHOS ####[facility] Foluksjhar[address] [place], [place] [address]Dr. Farhat Leal Creatinine [Mass/Vol] 1.53 mg/dL Critically high 0.70-1.30 [facility] Comment on above: Performed By: #### C MP, MG, PHOS ####[facility] Inqmoozsyp[address] [place], [place] [address]Dr. Farhat Leal EGFR-AF MARTINIQUAIS 54 mL/min/1.73m2 Critically low >=60 [facility] Comment on above: Performed By: #### C MP, MG, PHOS ####[facility] Vqitjowito[address] [place], [place] [address]Dr. Farhat Leal EGFR-NON AF MARTINIQUAIS 44 mL/min/1.73m2 Critically low >=60 [facility] Comment on above: Performed By: #### C MP, MG, PHOS ####[facility] Iptchstysg[address] [place] [address]Dr. Farhat Leal Globulin (S) [Mass/Vol] 3.4 g/dL Normal [facility] Comment on above: Performed By: #### C MP, MG, PHOS ####[facility] Kfjeivtsgo[address] [place] [address]Dr. Farhat Leal Glucose [Mass/Vol] 179 mg/dL Critically high 74-106 [facility] Comment on above: Performed By: #### C MP, MG, PHOS ####[facility] Ndgxdjrnwq36[address] [place] [address]Dr. Farhat Leal Potassium [Moles/Vol] 3.8 mmol/L Normal 3.5-5.1 [facility] Comment on above: Performed By: #### C MP, MG, PHOS ####[facility] Z[address]ifwdgsbn35[address] [place] [address]Dr. Farhat Leal Protein [Mass/Vol] 6.0 g/dL Critically low 6.4-8.[address] [facility] Comment on above: Performed By: #### C MP, MG, PHOS ####[facility] Oxziexmezi[address] [place] [address]Dr. Farhat Leal Sodium [Moles/Vol] 142 mmol/L Normal 136-145 [facility] Comment on above: Performed By: #### C MP, MG, PHOS ####[facility] Xvcrbquvym97[address] [place] [address]Dr. Farhat Leal Urea nitrogen [Mass/Vol] 56.0 mg/dL Critically high 7.0-18.0 [facility] Comment on above: Performed By: #### C MP, MG, PHOS ####[facility] Ozdnddxmlu[address] [place] [address]Dr. Farhat Leal Urea nitrogen/Creatinine [Mass ratio] 36.6 mg/mg Normal [facility] Comment on above: Performed By: #### C MP, MG, PHOS ####[facility] Jwochcdzxv[address] [place] [address]Dr. Farhat Leal FK506 (TACROLIMUS) WHOLE BLO ODon 06-08-2022 Tacrolimus (FK506), Blood 13.2 ng/mL Normal 2.0-20.0 [facility] Comment on above: Result Comment: Trou gh (immediately following transplant) 15.0 . Trough (steady state, 2 weeks or more after transplant): 3.0 - 8.0 . Performed by LC-MS/MS technology. Performed By: #### F K506T ####[facility] Hzvfvspcvn[address] [place], [place] [address]Dr. Farhat Leal CBC AUTO DIFFon 06-05-2022 BASO # 0.1 103/ul Normal 0.0-0.1 [facility] Comment on above: Performed By: #### C BC ####[facility] Pbzxpcwkok[address] [place], [place] [address]Dr. Farhat Leal Basophils/100 WBC (Bld) 0.8 % Normal 0.2-2.0 [facility] Comment on above: Performed By: #### C BC ####[facility] Twfwvzuqdi0[address] [place], [place] [address]Dr. Farhat Leal EO # 0.3 103/ul Normal 0.0-0.7 [facility] Comment on above: Performed By: #### C BC ####[facility] Xefdvcmuqe[address] [place], [place] [address]Dr. Farhat Leal Eosinophils/100 WBC (Bld) 4.7 % Normal 0.9-7.0 [facility] Comment on above: Performed By: #### C BC ####[facility] Johfomdixs07[address] [place], [place] [address]Dr. Farhat Leal Erythrocyte distribution width (RBC) [Ratio] 15.1 % Critically high 11.0-15.0 [facility] Comment on above: Performed By: #### C BC ####[facility] Npbcwfjpwm[address] [place], [place] [address]Dr. Farhat Leal Hematocrit (Bld) [Volume fraction] 35.5 % Critically low 42.0-54.0 [facility] Comment on above: Performed By: #### C BC ####[facility] D[address]ylaladk[address] [place] [address]DrSkylar Joshilorri Elvis Hemoglobin (Bld) [Mass/Vol] 11.7 g/dL Critically low 14.0-18.0 [facility] Comment on above: Performed By: #### C BC ####[facility] Ohadiwzqyo25[address] [place], [place] [address]DrSkylar Leal IG # 0.01 10e3/ul Normal 0.00-0.03 [facility] Comment on above: Performed By: #### C BC ####[facility] Sopjhnenby7[address] [place], [place] [address]DrSkylar Leal IG % 0.2 % Normal 0.0-0.5 [facility] Comment on above: Performed By: #### C BC ####[facility] Bvitnogzwc[address] [place], [place] [address]DrSkylar Leal LYMPH # 2.1 103/ul Normal 1.2-3.8 [facility] Comment on above: Performed By: #### C BC ####[facility] Sbcqbslzng55[address] [place], [place] [address]DrSkylar Leal Lymphocytes/100 WBC (Bld) 34.5 % Normal 20.5-60.0 [facility] Comment on above: Performed By: #### C BC ####[facility] Ihdlrxngsz54[address] [place], [place] [address]DrSkylar Leal MANUAL DIFF REQ NO Normal [facility] Comment on above: Performed By: #### C BC ####[facility] Olcokdwkwp6839[address] [place], [place] [address]DrSkylar Leal MCH (RBC) [Entitic mass] 30.6 pg Normal 25.9-34.0 [facility] Comment on above: Performed By: #### C BC ####[facility] Picvwwwdxl2786[address] [place], [place] [address]DrSkylar Leal MCHC (RBC) [Mass/Vol] 33.0 g/dL Normal 29.9-35.2 [facility] Comment on above: Performed By: #### C BC ####[facility] Cytzbevyzm7756 [place] [address]DrSkylar Joshilorri Elvis MCV (RBC) [Entitic vol] 92.9 fL Normal 80.0-94.0 [facility] Comment on above: Performed By: #### C BC ####[facility] Scuzydlpjd[address] [place] [address]DrSkylar Leal MONO # 0.7 103/ul Normal 0.3-0.8 [facility] Comment on above: Performed By: #### C BC ####[facility] Hmfspfkvlc7098 [place] [address]DrSkylar Leal Monocytes/100 WBC (Bld) 11.4 % Normal 1.7-12.0 [facility] Comment on above: Performed By: #### C BC ####[facility] Mafbjqmnvh[address] [place], [place] [address]DrSkylar Leal NEUT # 2.9 103/ul Normal 1.4-6.5 [facility] Comment on above: Performed By: #### C BC ####[facility] Plutlokfxq[address] [place], [place] [address]DrSkylar Leal Neutrophils/100 WBC (Bld) 48.4 % Normal 43.0-75.0 [facility] Comment on above: Performed By: #### C BC ####[facility] Usitzghyue32[address] [place], [place] [address]DrSkylar Leal Platelet mean volume (Bld) [Entitic vol] 10.7 fL Normal 9.5-13.5 [facility] Comment on above: Performed By: #### C BC ####[facility] Heyqnnpqoi01[address] [place], [place] [address]DrSkylar Leal PLT 185 103/ul Normal 150-450 [facility] Comment on above: Performed By: #### C BC ####[facility] Dpqreikeba0274 [place] [phone] Leal RBC 3.82 106/ul Critically low 4.70-6.10 [facility] Comment on above: Performed By: #### C BC ####[facility] Tlgqvvlqpz260[address] [place] [address]Dr. Farhat Leal WBC 6.0 103/ul Normal 4.0-11.0 [facility] Comment on above: Performed By: #### C BC ####[facility] U[address]msbdror[address] [place] [address]Dr. Farhat Leal MAGNESIUMon 06-05-2022 Magnesium [Mass/Vol] 1.9 mg/dL Normal 1.8-2.4 [facility] Comment on above: Performed By: #### P HOS, MG ####[facility] Bnvknnforr4[address] [place], [place] [address]Dr. Farhat Leal PHOSPHORUSon 06-05-2022 Phosphate [Mass/Vol] 4.4 mg/dL Normal 2.6-4.7 [facility] Comment on above: Performed By: #### P HOS, MG ####[facility] Dkqkedlmfd[address] [place], [place] [address]Dr. Farhat Leal PROTIMEon 06-05-2022 INR Coag (PPP) [Relative time] 2.16 {INR} Normal [facility] Comment on above: Performed By: #### P T ####[facility] Kohqynmvts[address] [place], [place] [address]DrSkylar Leal INR GUIDELINES SEE BELOW Normal [facility] Comment on above: Result Comment: MALINA RED INR: 2.0 - 3.0 CONDITIONS NOT LISTED BELOW 2.5 - 3.5 FOR PROSTHETIC HEART VALVE REPLACEMENT 2.5 - 3.5 RECURRENT THROMBOSIS Performed By: #### P T ####[facility] Wctnffmbyo[address] [place], [place] [address]Dr. Farhat Leal PT Coag (PPP) [Time] 21.9 s Critically high 9.0-11.6 [facility] Comment on above: Performed By: #### P T ####[facility] Fktceiecpn6[address] [place], [place] [address]Dr. Farhat Leal FK506 (TACROLIMUS) WHOLE BLO ODon 06-01-2022 Tacrolimus (FK506), Blood 26.4 ng/mL Invalid Interpretation Code 2.0-20.0 [facility] Comment on above: Result Comment: Trou gh (immediately following transplant) 15.0 . Trough (steady state, 2 weeks or more after transplant): 3.0 - 8.0 . Performed by LC-MS/MS technology.Patient drug level exceeds published reference range. Evaluateclinically for signs of potential toxicity. Performed By: #### F K506T ####[facility] Jstjxuzqor15[address] [place], [place] [address]Dr. Farhat Leal CBC AUTO DIFFon 05-29-2022 BASO # 0.0 103/ul Normal 0.0-0.1 [facility] Comment on above: Performed By: #### C BC ####[facility] Gmaxuwoffr8639[address] [place], [place] [address]Dr. Farhat Leal Basophils/100 WBC (Bld) 0.6 % Normal 0.2-2.0 [facility] Comment on above: Performed By: #### C BC ####[facility] Zaipkbwrcs01[address] [place], [place] [address]Dr. Farhat Leal EO # 0.3 103/ul Normal 0.0-0.7 [facility] Comment on above: Performed By: #### C BC ####[facility] Szaniwepro04[address] [place], [place] [address]Dr. Farhat Leal Eosinophils/100 WBC (Bld) 4.7 % Normal 0.9-7.0 [facility] Comment on above: Performed By: #### C BC ####[facility] Ajuonovywi11[address] [place], [place] [address]Dr. Farhat Leal Erythrocyte distribution width (RBC) [Ratio] 15.3 % Critically high 11.0-15.0 [facility] Comment on above: Performed By: #### C BC ####[facility] Hjgjltqlyi97[address] [place], [place] [address]Dr. Farhat Leal Hematocrit (Bld) [Volume fraction] 36.6 % Critically low 42.0-54.0 [facility] Comment on above: Performed By: #### C BC ####[facility] Zltrvnxufi45[address] [place] [phone]. Farhat Leal Hemoglobin (Bld) [Mass/Vol] 12.3 g/dL Critically low 14.0-18.0 [facility] Comment on above: Performed By: #### C BC ####[facility] S[address]apwwdfe50[address] [place] [phone]. Farhat Leal IG # 0.02 10e3/ul Normal 0.00-0.03 [facility] Comment on above: Performed By: #### C BC ####[facility] Xtbfmydwgh0668 [place] [id number]. Farhat Leal IG % 0.3 % Normal 0.0-0.5 [facility] Comment on above: Performed By: #### C BC ####[facility] U[address]pfmbxitv4[address] [place] [address]Dr. Farhat Leal LYMPH # 2.8 103/ul Normal 1.2-3.8 [facility] Comment on above: Performed By: #### C BC ####[facility] Azrbtmcpok[address] [place] [address]Dr. Farhat Leal Lymphocytes/100 WBC (Bld) 44.4 % Normal 20.5-60.0 [facility] Comment on above: Performed By: #### C BC ####[facility] Hbklyjlgxs5205 [place] [id number]. Farhat Leal MANUAL DIFF REQ NO Normal [facility] Comment on above: Performed By: #### C BC ####[facility] Jmxmqiaxnb4376 [place] [id number]. Farhat Leal MCH (RBC) [Entitic mass] 30.4 pg Normal 25.9-34.0 [facility] Comment on above: Performed By: #### C BC ####[facility] Yoirtsyfwv0525 [place] [id number]. Farhat Leal MCHC (RBC) [Mass/Vol] 33.6 g/dL Normal 29.9-35.2 [facility] Comment on above: Performed By: #### C BC ####[facility] Jfbcqhvorh59[address] [place] [address]Dr. Farhat Leal MCV (RBC) [Entitic vol] 90.4 fL Normal 80.0-94.0 [facility] Comment on above: Performed By: #### C BC ####[facility] Rpiazzpapx5836 [place] [address]Dr. Farhat Leal MONO # 0.7 103/ul Normal 0.3-0.8 [facility] Comment on above: Performed By: #### C BC ####[facility] Qbyswcclte4837 [place] [address]Dr. Farhat Leal Monocytes/100 WBC (Bld) 10.7 % Normal 1.7-12.0 [facility] Comment on above: Performed By: #### C BC ####[facility] Xkrmzwrmtc9[address] [place], [place] [address]Dr. Farhat Leal NEUT # 2.5 103/ul Normal 1.4-6.5 [facility] Comment on above: Performed By: #### C BC ####[facility] Usuhpmtomc85[address] [place], [place] [address]Dr. Farhat Leal Neutrophils/100 WBC (Bld) 39.3 % Critically low 43.0-75.0 [facility] Comment on above: Performed By: #### C BC ####[facility] Hmjjvgxnbf9[address] [place], [place] [address]Dr. Farhat Leal Platelet mean volume (Bld) [Entitic vol] 10.5 fL Normal 9.5-13.5 [facility] Comment on above: Performed By: #### C BC ####[facility] Hnytgntwyr39[address] [place], [place] [address]Dr. Farhat Leal PLT 190 103/ul Normal 150-450 [facility] Comment on above: Performed By: #### C BC ####[facility] Dnkbrbbikc3[address] [place], [place] [address]Dr. Farhat Leal RBC 4.05 106/ul Critically low 4.70-6.10 [facility] Comment on above: Performed By: #### C BC ####[facility] Xjcgrkyhqa7[address] [place], [place] [address]Dr. Farhat Leal WBC 6.4 103/ul Normal 4.0-11.0 [facility] Comment on above: Performed By: #### C BC ####[facility] X[address]jcsrdiz[address] [place] [address]Dr. Farhat Leal PROF 14(COMP METB)on 023 Albumin [Mass/Vol] 2.5 g/dL Critically low 3.4-5.0 [facility] Comment on above: Performed By: #### C MP ####[facility] Jrxmqdsrmg68[address] [place] [address]Dr. Farhat Leal Albumin/Globulin [Mass ratio] 0.8 {ratio} Normal [facility] Comment on above: Performed By: #### C MP ####[facility] Azkonnhdsw3452 [place] [address]Dr. Farhat Leal ALP [Catalytic activity/Vol] 61 U/L Normal 46-116 [facility] [facility] Comment on above: Performed By: #### C MP ####[facility] [address]wcd[address] [place] [address]Dr. Farhat Leal ALT [Catalytic activity/Vol] 16 U/L Normal 16-63 [facility] Comment on above: Performed By: #### C MP ####[facility] Gfcxlwwnim[address] [place] [address]Dr. Farhat Leal Anion gap [Moles/Vol] 12.3 mmol/L Normal [facility] Comment on above: Performed By: #### C MP ####[facility] [address]rukiriave[address] [place] [address]Dr. Farhat Leal AST [Catalytic activity/Vol] 18 U/L Normal 15-37 [facility] Comment on above: Performed By: #### C MP ####[facility] [address]zizhnwqz[address] [place] [address]Dr. Farhat Leal Bilirubin [Mass/Vol] 0.5 mg/dL Normal 0.2-1.0 [facility] Comment on above: Performed By: #### C MP ####[facility] Lougmyorbe[address] [place] [address]Dr. Farhat Leal Calcium [Mass/Vol] 8.6 mg/dL Normal 8.5-10.1 [facility] Comment on above: Performed By: #### C MP ####[facility] Jbdvyeadnn[address] [place] [address]Dr. Farhat Leal Chloride [Moles/Vol] 105 mmol/L Normal 98-107 [facility] Comment on above: Performed By: #### C MP ####[facility] [address]pduywewfj[address] [place], [place] [address]Dr. Madelynlorri Elvis CO2 [Moles/Vol] 28.6 mmol/L Normal 21.0-32.0 [facility] Comment on above: Performed By: #### C MP ####[facility] Gatkfnaolu[address] [place], [place] [address]Dr. Farhat Leal Creatinine [Mass/Vol] 1.47 mg/dL Critically high 0.70-1.30 [facility] Comment on above: Performed By: #### C MP ####[facility] Fznsrjqzhn74[address] [place], [place] [address]Dr. Madelynlorri Elvis EGFR-AF MARTINIQUAIS 56 mL/min/1.73m2 Critically low >=60 [facility] Comment on above: Performed By: #### C MP ####[facility] Zyzsleiyno24[address] [place], [place] [address]Dr. Farhat Leal EGFR-NON AF MARTINIQUAIS 46 mL/min/1.73m2 Critically low >=60 [facility] Comment on above: Performed By: #### C MP ####[facility] Vgvdlclviv[address] [place] [address]Dr. Farhat Leal Globulin (S) [Mass/Vol] 3.3 g/dL Normal [facility] Comment on above: Performed By: #### C MP ####[facility] Pulphrjftm1177[address] [place], [place] [address]Dr. Farhat Leal Glucose [Mass/Vol] 164 mg/dL Critically high 74-106 T [facility] Comment on above: Performed By: #### C MP ####[facility] Jpzqyseqsq7638[address] [place], [place] [address]Dr. Farhat Leal Potassium [Moles/Vol] 3.9 mmol/L Normal 3.5-5.1 [facility] Comment on above: Performed By: #### C MP ####[facility] Ifyabbwmdg3752[address] [place], [place] [address]Dr. Farhat Leal Protein [Mass/Vol] 5.8 g/dL Critically low 6.4-8.2 [facility] Comment on above: Performed By: #### C MP ####[facility] Padwzxhgaf[address] [place], [place] [address]Dr. Farhat Leal Sodium [Moles/Vol] 142 mmol/L Normal 136-145 [facility] Comment on above: Performed By: #### C MP ####[facility] Qfodfnxwph9213[address] [place], [place] [address]Dr. Farhat Leal Urea nitrogen [Mass/Vol] 53.0 mg/dL Critically high 7.0-18.0 [facility] Comment on above: Performed By: #### C MP ####[facility] Fhslctlxjy69[address] [place], [place] [address]Dr. Farhat Leal Urea nitrogen/Creatinine [Mass ratio] 36.1 mg/mg Normal [facility] Comment on above: Performed By: #### C MP ####[facility] Dbxelpdzdu9737[address] [place], [place] [address]Dr. Farhat Leal PROTIMEon 05-29-2022 INR Coag (PPP) [Relative time] 2.41 {INR} Normal [facility] Comment on above: Performed By: #### P T ####[facility] Hbetimgwcz4516[address] [place], [place] [address]Dr. Farhat Leal INR GUIDELINES SEE BELOW Normal [facility] Comment on above: Result Comment: MALINA RED INR: 2.0 - 3.0 CONDITIONS NOT LISTED BELOW 2.5 - 3.5 FOR PROSTHETIC HEART VALVE REPLACEMENT 2.5 - 3.5 RECURRENT THROMBOSIS Performed By: #### P T ####[facility] Heokcjlutn9715[address] [place], [place] [address]Dr. Farhat Leal PT Coag (PPP) [Time] 24.3 s Critically high 9.0-11.6 [facility] Comment on above: Performed By: #### P T ####[facility] Cclmjlhexm06[address] [place], [place] [address]DrSkylar Leal FK506 (TACROLIMUS) WHOLE BLO ODon 05-25-2022 Tacrolimus (FK506), Blood 5.1 ng/mL Normal 2.0-20.0 [facility] Comment on above: Result Comment: Trou gh (immediately following transplant) 15.0 . Trough (steady state, 2 weeks or more after transplant): 3.0 - 8.0 . Performed by LC-MS/MS technology. Performed By: #### F K506T ####[facility] Skncxqhdkh[address] [place], [place] [address]DrSkylar Leal CBC AUTO DIFFon 05-22-2022 BASO # 0.0 103/ul Normal 0.0-0.1 [facility] Comment on above: Performed By: #### C BC ####[facility] Sgzuyeargx0635[address] [place], [place] [address]DrSkylar Leal Basophils/100 WBC (Bld) 0.5 % Normal 0.2-2.0 [facility] Comment on above: Performed By: #### C BC ####[facility] Dahsikgpiv1257[address] [place], [place] [address]DrSkylar Leal EO # 0.2 103/ul Normal 0.0-0.7 [facility] Comment on above: Performed By: #### C BC ####[facility] Iicxrarekx5593[address] [place], [place] [address]DrSkylar Leal Eosinophils/100 WBC (Bld) 4.0 % Normal 0.9-7.0 [facility] Comment on above: Performed By: #### C BC ####[facility] Aoikgyvohr2086[address] [place], [place] [address]DrSkylar Leal Erythrocyte distribution width (RBC) [Ratio] 15.5 % Critically high 11.0-15.0 [facility] Comment on above: Performed By: #### C BC ####[facility] Kemcuqbtxe[address] [place], [place] [address]DrSkylar Leal Hematocrit (Bld) [Volume fraction] 34.1 % Critically low 42.0-54.0 [facility] Comment on above: Performed By: #### C BC ####[facility] H[address]clcwquc[address] [place] [address]Dr. Farhat Leal Hemoglobin (Bld) [Mass/Vol] 11.3 g/dL Critically low 14.0-18.0 [facility] Comment on above: Performed By: #### C BC ####[facility] Lmwkobndww[address] [place] [address]Dr. Madelynlorri Leal IG # 0.03 10e3/ul Normal 0.00-0.03 [facility] Comment on above: Performed By: #### C BC ####[facility] Qjytilvlro8737[address] [place], [place] [address]Dr. Farhat Leal IG % 0.5 % Normal 0.0-0.5 [facility] Comment on above: Performed By: #### C BC ####[facility] Kldbdhddlj[address] [place], [place] [address]Dr. Farhat Leal LYMPH # 2.1 103/ul Normal 1.2-3.8 [facility] Comment on above: Performed By: #### C BC ####[facility] Wgbgazbxvz7626[address] [place], [place] [address]DrSkylar Farhat Elvis Lymphocytes/100 WBC (Bld) 34.6 % Normal 20.5-60.0 [facility] Comment on above: Performed By: #### C BC ####[facility] Rhvuiynjpb1846[address] [place], [place] [address]Dr. Farhat Leal MANUAL DIFF REQ NO Normal [facility] Comment on above: Performed By: #### C BC ####[facility] Qplehkdyse1632[address] [place], [place] [address]Dr. Farhat Leal MCH (RBC) [Entitic mass] 30.3 pg Normal 25.9-34.0 [facility] Comment on above: Performed By: #### C BC ####[facility] Xecujovsle7[address] [place], [place] [address]Dr. Farhat Leal MCHC (RBC) [Mass/Vol] 33.1 g/dL Normal 29.9-35.2 [facility] Comment on above: Performed By: #### C BC ####[facility] Fscuelxtlz66[address] [place] [address]DrSkylar Joshilorri Elvis MCV (RBC) [Entitic vol] 91.4 fL Normal 80.0-94.0 [facility] Comment on above: Performed By: #### C BC ####[facility] Ecoyicevun[address] [place], [place] [address]DrSkylar Leal MONO # 0.7 103/ul Normal 0.3-0.8 [facility] Comment on above: Performed By: #### C BC ####[facility] Ghuknewgrc6742[address] [place], [place] [address]DrSkylar Leal Monocytes/100 WBC (Bld) 11.6 % Normal 1.7-12.0 [facility] Comment on above: Performed By: #### C BC ####[facility] Cyjtomlbwb5898[address] [place], [place] [address]DrSkylar Leal NEUT # 2.9 103/ul Normal 1.4-6.5 [facility] Comment on above: Performed By: #### C BC ####[facility] Gnatrpeztu1567[address] [place], [place] [address]DrSkylar Leal Neutrophils/100 WBC (Bld) 48.8 % Normal 43.0-75.0 [facility] Comment on above: Performed By: #### C BC ####[facility] Nbgpgtxdma058[address] [place], [place] [address]DrkSylar Leal Platelet mean volume (Bld) [Entitic vol] 10.9 fL Normal 9.5-13.5 [facility] Comment on above: Performed By: #### C BC ####[facility] Pctqnksnvp[address] [place], [place] [address]DrSkylar Leal PLT 186 103/ul Normal 150-450 [facility] Comment on above: Performed By: #### C BC ####[facility] Akckrusrov30[address] [place], [place] [address]DrSkylar Leal RBC 3.73 106/ul Critically low 4.70-6.10 [facility] Comment on above: Performed By: #### C BC ####[facility] Scipbpmoht[address] [place] [address]Dr. Farhat Leal WBC 6.0 103/ul Normal 4.0-11.0 [facility] Comment on above: Performed By: #### C BC ####[facility] Mylifaxqgo[address] [place] [address]DrSkylar Leal PROF 14(COMP METB)on 023 Albumin [Mass/Vol] 2.7 g/dL Critically low 3.4-5.[address] [facility] Comment on above: Performed By: #### C MP ####[facility] Peuawexjhb8962[address] [place], [place] [address]Dr. Farhat Leal Albumin/Globulin [Mass ratio] 0.8 {ratio} Normal [facility] Comment on above: Performed By: #### C MP ####[facility] Ksbxzfmjgo2544[address] [place], [place] [address]Dr. Farhat Leal ALP [Catalytic activity/Vol] 60 U/L Normal 46-116 [facility] Comment on above: Performed By: #### C MP ####[facility] Dikomsbgsi4248[address] [place], [place] [address]Dr. Farhat Leal ALT [Catalytic activity/Vol] 17 U/L Normal 16-63 [facility] Comment on above: Performed By: #### C MP ####[facility] Wqmrbgzpvs2486[address] [place], [place] [address]Dr. Farhat Leal Anion gap [Moles/Vol] 9.6 mmol/L Normal [facility] Comment on above: Performed By: #### C MP ####[facility] Rxyskuvegp7798[address] [place], [place] [address]Dr. Farhat Leal AST [Catalytic activity/Vol] 14 U/L Critically low 15-37 [facility] Comment on above: Performed By: #### C MP ####[facility] Gwwytwrzda4186[address] [place], [place] [address]Dr. Farhat Leal Bilirubin [Mass/Vol] 0.5 mg/dL Normal 0.2-1.0 [facility] Comment on above: Performed By: #### C MP ####[facility] Pwbzvujvge7[address] [place] [address]Dr. Farhat Elvis Calcium [Mass/Vol] 8.4 mg/dL Critically low 8.5-10.1 [facility] Comment on above: Performed By: #### C MP ####[facility] Ghvelhrosn0404 [place] [address]Dr. Madelynlorri Elvis Chloride [Moles/Vol] 104 mmol/L Normal 98-107 [facility] Comment on above: Performed By: #### C MP ####[facility] Qxpcimvlbs2074 [place] [address]Dr. Madelynlorri Elvis CO2 [Moles/Vol] 27.2 mmol/L Normal 21.0-32.0 [facility] Comment on above: Performed By: #### C MP ####[facility] Hnylcomryu[address] [place], [place] [address]Dr. Madelynlorri Elvis Creatinine [Mass/Vol] 1.24 mg/dL Normal 0.70-1.30 [facility] Comment on above: Performed By: #### C MP ####[facility] Aqisliapvw9076[address] [place], [place] [address]Dr. Madelynlorri Elvis EGFR-AF MARTINIQUAIS >60 Normal >=60 [facility] Comment on above: Performed By: #### C MP ####[facility] Swrbztfnqk4[address] [place] [address]Dr. Farhat Leal EGFR-NON AF MARTINIQUAIS 57 mL/min/1.73m2 Critically low >=60 [facility] Comment on above: Performed By: #### C MP ####[facility] Izvisxcurw[address] [place], [place] [address]Dr. Farhat Leal Globulin (S) [Mass/Vol] 3.3 g/dL Normal [facility] Comment on above: Performed By: #### C MP ####[facility] Sjbguvwfhw5060 [place] [id number]. Farhat Leal Glucose [Mass/Vol] 275 mg/dL Critically high 74-106 T [facility] Comment on above: Performed By: #### C MP ####[facility] Nnjrxpylvx6663 [place] [address]Dr. Farhat Elvis Potassium [Moles/Vol] 3.8 mmol/L Normal 3.5-5.1 [facility] Comment on above: Performed By: #### C MP ####[facility] Jjhlpsiowh29[address] [place] [address]Dr. Farhat Leal Protein [Mass/Vol] 6.0 g/dL Critically low 6.4-8.[address] [facility] Comment on above: Performed By: #### C MP ####[facility] Kxglalbkkk4075 [place] [address]Dr. Farhat Leal Sodium [Moles/Vol] 137 mmol/L Normal 136-145 [facility] Comment on above: Performed By: #### C MP ####[facility] Kpavbjrhbr7539 [place] [address]Dr. Farhat Leal Urea nitrogen [Mass/Vol] 54.0 mg/dL Critically high 7.0-18.0 [facility] Comment on above: Performed By: #### C MP ####[facility] Ncssjkzmoi7922 [place] [address]Dr. Madelynlorri Leal Urea nitrogen/Creatinine [Mass ratio] 43.5 mg/mg Normal [facility] Comment on above: Performed By: #### C MP ####[facility] Ujepvkrpbc9[address] [place] [address]Dr. Farhat Leal PROTIMEon 05-22-2022 INR Coag (PPP) [Relative time] 2.27 {INR} Normal [facility] Comment on above: Performed By: #### P T ####[facility] Ukiyhmpbor[address] [place] [address]Dr. Farhat Leal INR GUIDELINES SEE BELOW Normal [facility] Comment on above: Result Comment: MALINA RED INR: 2.0 - 3.0 CONDITIONS NOT LISTED BELOW 2.5 - 3.5 FOR PROSTHETIC HEART VALVE REPLACEMENT 2.5 - 3.5 RECURRENT THROMBOSIS Performed By: #### P T ####[facility] Ydsxevtcra[address] [place] [address]Dr. Madelynlorri Leal PT Coag (PPP) [Time] 23.0 s Critically high 9.0-11.6 [facility] Comment on above: Performed By: #### P T ####[facility] Jluxqpsors2074[address] [place], [place] [address]Dr. Farhat Elvis FK506 (TACROLIMUS) WHOLE BLO ODon 05-19-2022 Tacrolimus (FK506), Blood 7.8 ng/mL Normal 2.0-20.0 [facility] Comment on above: Result Comment: Trou gh (immediately following transplant) 15.0 . Trough (steady state, 2 weeks or more after transplant): 3.0 - 8.0 . Performed by LC-MS/MS technology. Performed By: #### F K506T ####[facility] Wxdbfrsytb398[address] [place], [place] [address]Dr. Farhat Leal CBC AUTO DIFFon 05-15-2022 BASO # 0.0 103/ul Normal 0.0-0.1 [facility] Comment on above: Performed By: #### C BC ####[facility] Qdqwqlgzrj8125[address] [place], [place] [address]Dr. Farhat Leal Basophils/100 WBC (Bld) 0.4 % Normal 0.2-2.0 [facility] Comment on above: Performed By: #### C BC ####[facility] Sqzynxfwvf36[address] [place], [place] [address]Dr. Farhat Leal EO # 0.2 103/ul Normal 0.0-0.7 [facility] Comment on above: Performed By: #### C BC ####[facility] Pfgzkvuppd8924[address] [place], [place] [address]Dr. Farhat Leal Eosinophils/100 WBC (Bld) 3.0 % Normal 0.9-7.0 [facility] Comment on above: Performed By: #### C BC ####[facility] Mtuefjecra7976[address] [place], [place] [address]Dr. Farhat Leal Erythrocyte distribution width (RBC) [Ratio] 15.7 % Critically high 11.0-15.0 [facility] Comment on above: Performed By: #### C BC ####[facility] Gaxvzomwat27[address] [place] [address]Dr. Farhat Leal Hematocrit (Bld) [Volume fraction] 36.8 % Critically low 42.0-54.0 [facility] Comment on above: Performed By: #### C BC ####[facility] Nobiekubfy[address] [place] [address]Dr. Farhat Elvis Hemoglobin (Bld) [Mass/Vol] 12.4 g/dL Critically low 14.0-18.0 [facility] Comment on above: Performed By: #### C BC ####[facility] Jmexaoepeg8313[address] [place], [place] [address]Dr. Madelynlorri Leal IG # 0.01 10e3/ul Normal 0.00-0.03 [facility] Comment on above: Performed By: #### C BC ####[facility] Sdnbbgbcjq6875[address] [place], [place] [address]Dr. Farhat Leal IG % 0.1 % Normal 0.0-0.5 [facility] Comment on above: Performed By: #### C BC ####[facility] Okwszzimrv9548[address] [place], [place] [address]Dr. Madelynlorri Leal LYMPH # 2.4 103/ul Normal 1.2-3.8 [facility] Comment on above: Performed By: #### C BC ####[facility] Ovpauzksam0801[address] [place], [place] [address]DrSkylar Leal Lymphocytes/100 WBC (Bld) 35.6 % Normal 20.5-60.0 [facility] Comment on above: Performed By: #### C BC ####[facility] Ivgzujbvvx8707[address] [place], [place] [address]DrSkylar Leal MANUAL DIFF REQ NO Normal [facility] Comment on above: Performed By: #### C BC ####[facility] Unrzjsxshg5114[address] [place], [place] [address]DrSkylar Leal MCH (RBC) [Entitic mass] 30.1 pg Normal 25.9-34.0 [facility] Comment on above: Performed By: #### C BC ####[facility] Weeitycfhp9188 [place] [id number]. Farhat Elvis MCHC (RBC) [Mass/Vol] 33.7 g/dL Normal 29.9-35.2 [facility] Comment on above: Performed By: #### C BC ####[facility] Bfjxsokcja5[address] [place] [address]Dr. Farhat Leal MCV (RBC) [Entitic vol] 89.3 fL Normal 80.0-94.0 [facility] Comment on above: Performed By: #### C BC ####[facility] Fvlcklalwo15[address] [place], [place] [address]Dr. Farhat Leal MONO # 0.7 103/ul Normal 0.3-0.8 [facility] Comment on above: Performed By: #### C BC ####[facility] Kiuddmymto6926[address] [place], [place] [address]Dr. Farhat Leal Monocytes/100 WBC (Bld) 10.8 % Normal 1.7-12.0 [facility] Comment on above: Performed By: #### C BC ####[facility] Dxpgfgpluy[address] [place], [place] [address]Dr. Farhat Leal NEUT # 3.4 103/ul Normal 1.4-6.5 [facility] Comment on above: Performed By: #### C BC ####[facility] Phnwqbygxh4375[address] [place], [place] [address]Dr. Farhat Leal Neutrophils/100 WBC (Bld) 50.1 % Normal 43.0-75.0 [facility] Comment on above: Performed By: #### C BC ####[facility] Hadooqdwej3858[address] [place], [place] [address]Dr. Farhat Leal Platelet mean volume (Bld) [Entitic vol] 10.2 fL Normal 9.5-13.5 [facility] Comment on above: Performed By: #### C BC ####[facility] Mqtgjkgceq6184[address] [place], [place] [address]Dr. Farhat Leal PLT 190 103/ul Normal 150-450 [facility] Comment on above: Performed By: #### C BC ####[facility] Yszcatmwwe5602 [place] [id number]. Farhat Leal RBC 4.12 106/ul Critically low 4.70-6.10 [facility] Comment on above: Performed By: #### C BC ####[facility] Kuphnaxtwr4[address] [place] [address]Dr. Farhat Leal WBC 6.8 103/ul Normal 4.0-11.0 [facility] Comment on above: Performed By: #### C BC ####[facility] Htbravtrfl44[address] [place] [address]Dr. Farhat Leal PROF 14(COMP METB)on 023 Albumin [Mass/Vol] 2.8 g/dL Critically low 3.4-5.0 [facility] Comment on above: Performed By: #### C MP ####[facility] Ohrfipatmb9[address] [place], [place] [address]Dr. Farhat Leal Albumin/Globulin [Mass ratio] 0.9 {ratio} Normal [facility] Comment on above: Performed By: #### C MP ####[facility] Tfqilmfwgr[address] [place], [place] [address]Dr. Farhat Leal ALP [Catalytic activity/Vol] 66 U/L Normal 46-116 [facility] Comment on above: Performed By: #### C MP ####[facility] Xgxaairbcu5299[address] [place], [place] [address]Dr. Farhat Leal ALT [Catalytic activity/Vol] 15 U/L Critically low 16-63 [facility] Comment on above: Performed By: #### C MP ####[facility] Dzcyrowarh94[address] [place] [address]Dr. Farhat Leal Anion gap [Moles/Vol] 11.1 mmol/L Normal [facility] Comment on above: Performed By: #### C MP ####[facility] Ayvukkezyd9919 [place] [address]Dr. Farhat Leal AST [Catalytic activity/Vol] 14 U/L Critically low 15-37 [facility] Comment on above: Performed By: #### C MP ####[facility] Qcrbaldcmk2360 [place] [id number]. Farhat Leal Bilirubin [Mass/Vol] 0.8 mg/dL Normal 0.2-1.0 [facility] Comment on above: Performed By: #### C MP ####[facility] Lljowjslzd4542 [place] [id number]. Farhat Leal Calcium [Mass/Vol] 8.9 mg/dL Normal 8.5-10.1 [facility] Comment on above: Performed By: #### C MP ####[facility] Ycxgaoucno55[address] [place] [address]Dr. Farhat Leal Chloride [Moles/Vol] 101 mmol/L Normal 98-107 [facility] Comment on above: Performed By: #### C MP ####[facility] Dezaslrizk[address] [place], [place] [address]Dr. Farhat Leal CO2 [Moles/Vol] 28.2 mmol/L Normal 21.0-32.0 [facility] Comment on above: Performed By: #### C MP ####[facility] Ejlmlbqacs8[address] [place], [place] [address]Dr. Farhat Leal Creatinine [Mass/Vol] 1.23 mg/dL Normal 0.70-1.30 [facility] Comment on above: Performed By: #### C MP ####[facility] Mtkvfgzjkq5[address] [place], [place] [address]Dr. Farhat Leal EGFR-AF MARTINIQUAIS >60 Normal >=60 [facility] Comment on above: Performed By: #### C MP ####[facility] R[address]vavtsygm[address] [place], [place] [address]Dr. Faraht Leal EGFR-NON AF MARTINIQUAIS 57 mL/min/1.73m2 Critically low >=60 [facility] Comment on above: Performed By: #### C MP ####[facility] Ncvvooiwvo18[address] [place], [place] [address]Dr. Farhat Leal Globulin (S) [Mass/Vol] 3.2 g/dL Normal [facility] Comment on above: Performed By: #### C MP ####[facility] Zpucqxgnqz1147 [place] [id number]. Farhat Leal Glucose [Mass/Vol] 333 mg/dL Critically high 74-106 T [facility] Comment on above: Performed By: #### C MP ####[facility] Bowwftxvuj[address] [place] [id number]. Farhat Leal Potassium [Moles/Vol] 4.3 mmol/L Normal 3.5-5.1 [facility] Comment on above: Performed By: #### C MP ####[facility] Fsqwamimhh4071 [place] [id number]. Farhat Leal Protein [Mass/Vol] 6.0 g/dL Critically low 6.4-8.[address] [facility] Comment on above: Performed By: #### C MP ####[facility] [address] [place] [address]Dr. Farhat Leal Sodium [Moles/Vol] 136 mmol/L Normal 136-145 [facility] Comment on above: Performed By: #### C MP ####[facility] [address]dw[address] [place] [id number]. Farhat Leal Urea nitrogen [Mass/Vol] 58.0 mg/dL Critically high 7.0-18.0 [facility] Comment on above: Performed By: #### C MP ####[facility] G[address]ajbvx[address] [place] [phone]. Farhat Leal Urea nitrogen/Creatinine [Mass ratio] 47.2 mg/mg Normal [facility] Comment on above: Performed By: #### C MP ####[facility] Y[address]seqsrrn[address] [place] [phone]. Farhat Elvis PROTIMEon 05-13-2022 INR Coag (PPP) [Relative time] 3.51 {INR} Normal [facility] Comment on above: Performed By: #### P T ####[facility] [address]xfvpsk[address] [place] [phone]. Madelynlorri Elvis INR GUIDELINES SEE BELOW Normal [facility] Comment on above: Result Comment: MALINA RED INR: 2.0 - 3.0 CONDITIONS NOT LISTED BELOW 2.5 - 3.5 FOR PROSTHETIC HEART VALVE REPLACEMENT 2.5 - 3.5 RECURRENT THROMBOSIS Performed By: #### P T ####[facility] [address] [place], [place] [address]DrSkylar Leal PT Coag (PPP) [Time] 34.7 s Critically high 9.0-11.6 [facility] Comment on above: Performed By: #### P T ####[facility] Acafcjzrtx[address] [place], [place] [address]Dr. Farhat Leal FK506 (TACROLIMUS) WHOLE BLO ODon 05-11-2022 Tacrolimus (FK506), Blood 14.4 ng/mL Normal 2.0-20.0 [facility] Comment on above: Result Comment: Trou gh (immediately following transplant) 15.0 . Trough (steady state, 2 weeks or more after transplant): 3.0 - 8.0 . Performed by LC-MS/MS technology. Performed By: #### F K506T ####[facility] Xrgwplbml[address] [place], [place] [address]DrSkylar Leal CBC AUTO DIFFon 05-08-2022 BASO # 0.0 103/ul Normal 0.0-0.1 [facility] Comment on above: Performed By: #### C BC ####[facility] Zwatklwmtg[address] [place], [place] [address]DrSkylar Leal Basophils/100 WBC (Bld) 0.5 % Normal 0.2-2.0 [facility] Comment on above: Performed By: #### C BC ####[facility] Inukcvbulu[address] [place], [place] [address]DrSkylar Leal EO # 0.2 103/ul Normal 0.0-0.7 [facility] Comment on above: Performed By: #### C BC ####[facility] Iundwfsxcr35[address] [place], [place] [address]DrSkylar Leal Eosinophils/100 WBC (Bld) 2.9 % Normal 0.9-7.0 [facility] Comment on above: Performed By: #### C BC ####[facility] Qosfytnniy39[address] [place], [place] [address]Dr. Farhat Leal Erythrocyte distribution width (RBC) [Ratio] 16.0 % Critically high 11.0-15.0 [facility] Comment on above: Performed By: #### C BC ####[facility] [address]rufqf[address] [place] [address]Dr. Farhat Leal Hematocrit (Bld) [Volume fraction] 35.7 % Critically low 42.0-54.0 [facility] Comment on above: Performed By: #### C BC ####[facility] V[address]wddccpy[address] [place] [address]Dr. Farhat Leal Hemoglobin (Bld) [Mass/Vol] 11.9 g/dL Critically low 14.0-18.0 [facility] Comment on above: Performed By: #### C BC ####[facility] Vxuknicsvd[address] [place], [place] [address]Dr. Farhat Elvis IG # 0.03 10e3/ul Normal 0.00-0.03 [facility] Comment on above: Performed By: #### C BC ####[facility] Nhxqbjmlhv65[address] [place], [place] [address]Dr. Farhat Elvis IG % 0.5 % Normal 0.0-0.5 [facility] Comment on above: Performed By: #### C BC ####[facility] Afbhbcmkqs34[address] [place], [place] [address]Dr. Farhat Evlis LYMPH # 2.4 103/ul Normal 1.2-3.8 [facility] Comment on above: Performed By: #### C BC ####[facility] Hbsyduzpeo4[address] [place], [place] [address]Dr. Madelynlorri Leal Lymphocytes/100 WBC (Bld) 37.8 % Normal 20.5-60.0 [facility] Comment on above: Performed By: #### C BC ####[facility] Kdzplqovct01[address] [place], [place] [address]Dr. Madelynlorri Leal MANUAL DIFF REQ NO Normal [facility] Comment on above: Performed By: #### C BC ####[facility] Gwmcimvvgm3[address] [place], [place] [address]Dr. Farhat Leal MCH (RBC) [Entitic mass] 30.4 pg Normal 25.9-34.0 [facility] Comment on above: Performed By: #### C BC ####[facility] [address] [place] [address]Dr. Farhat Leal MCHC (RBC) [Mass/Vol] 33.3 g/dL Normal 29.9-35.2 [facility] Comment on above: Performed By: #### C BC ####[facility] Npjkpdrljq[address] [place], [place] [address]Dr. Farhat Leal MCV (RBC) [Entitic vol] 91.1 fL Normal 80.0-94.0 [facility] Comment on above: Performed By: #### C BC ####[facility] Znnzapvrlc70[address] [place], [place] [address]Dr. Farhat Elvis MONO # 0.7 103/ul Normal 0.3-0.8 [facility] Comment on above: Performed By: #### C BC ####[facility] Cjzyvtmsvk44[address] [place], [place] [address]Dr. Farhat Elvis Monocytes/100 WBC (Bld) 11.1 % Normal 1.7-12.0 [facility] Comment on above: Performed By: #### C BC ####[facility] Hcajhfoshu[address] [place], [place] [address]Dr. Farhat Leal NEUT # 2.9 103/ul Normal 1.4-6.5 [facility] Comment on above: Performed By: #### C BC ####[facility] Brxmmwjvnf3536[address] [place], [place] [address]Dr. Farhat Elvis Neutrophils/100 WBC (Bld) 47.2 % Normal 43.0-75.0 [facility] Comment on above: Performed By: #### C BC ####[facility] Wazmsvoygn9[address] [place], [place] [address]Dr. Farhat Leal Platelet mean volume (Bld) [Entitic vol] 11.0 fL Normal 9.5-13.5 [facility] Comment on above: Performed By: #### C BC ####[facility] R[address] [place] [phone]. Farhat Leal PLT 191 103/ul Normal 150-450 [facility] Comment on above: Performed By: #### C BC ####[facility] [address]gjr[address] [place] [address]Dr. Farhat Leal RBC 3.92 106/ul Critically low 4.70-6.10 [facility] Comment on above: Performed By: #### C BC ####[facility] T[address]rdwyslle[address] [place] [address]Dr. Farhat Leal WBC 6.2 103/ul Normal 4.0-11.0 [facility] Comment on above: Performed By: #### C BC ####[facility] Qrzttumwzc[address] [place], [place] [address]Dr. Farhat Leal MAGNESIUMon 05-08-2022 Magnesium [Mass/Vol] 1.9 mg/dL Normal 1.8-2.4 [facility] Comment on above: Performed By: #### P HOS, MG ####[facility] Srlqukgxot04[address] [place], [place] [address]Dr. Farhat Leal PHOSPHORUSon 05-08-2022 Phosphate [Mass/Vol] 4.5 mg/dL Normal 2.6-4.7 [facility] Comment on above: Performed By: #### P HOS, MG ####[facility] Zolzvwxmlp[address] [place], [place] [address]Dr. Farhat Leal PROF 14(COMP METB)on 023 Albumin [Mass/Vol] 2.9 g/dL Critically low 3.4-5.[address] [facility] Comment on above: Performed By: #### C MP ####[facility] [address]nc[address] [place] [address]Dr. Farhat Leal Albumin/Globulin [Mass ratio] 0.9 {ratio} Normal [facility] Comment on above: Performed By: #### C MP ####[facility] [address]xfj[address] [place] [address]Dr. Farhat Leal ALP [Catalytic activity/Vol] 70 U/L Normal 46-116 [facility] Comment on above: Performed By: #### C MP ####[facility] U[address]ogcptr[address] [place] [phone]. Farhat Leal ALT [Catalytic activity/Vol] 13 U/L Critically low 16-63 [facility] Comment on above: Performed By: #### C MP ####[facility] S[address]vf[address] [place] [phone]. Farhat Leal Anion gap [Moles/Vol] 14.6 mmol/L Normal [facility] Comment on above: Performed By: #### C MP ####[facility] M[address]vdauxkp5[address] [place] [phone]. Farhat Leal AST [Catalytic activity/Vol] 17 U/L Normal 15-37 [facility] Comment on above: Performed By: #### C MP ####[facility] Fcwchvgzix43[address] [place], [place] [address]Dr. Farhat Leal Bilirubin [Mass/Vol] 0.8 mg/dL Normal 0.2-1.0 [facility] Comment on above: Performed By: #### C MP ####[facility] R[address]frzqlhi[address] [place] [address]Dr. Farhat Leal Calcium [Mass/Vol] 8.9 mg/dL Normal 8.5-10.1 [facility] Comment on above: Performed By: #### C MP ####[facility] [address]fsxvulej[address] [place] [address]Dr. Farhat Leal Chloride [Moles/Vol] 102 mmol/L Normal 98-107 [facility] Comment on above: Performed By: #### C MP ####[facility] [address]couk[address] [place] [phone]. Farhat Leal CO2 [Moles/Vol] 22.9 mmol/L Normal 21.0-32.0 [facility] Comment on above: Performed By: #### C MP ####[facility] [address] [place], [place] [address]Dr. Farhat Elal Creatinine [Mass/Vol] 1.20 mg/dL Normal 0.70-1.30 [facility] Comment on above: Performed By: #### C MP ####[facility] K[address]urjrrvb8035 [place], [place] [address]Qd. Farhat Leal EGFR-AF MARTINIQUAIS >60 Normal >=60 [facility] Comment on above: Performed By: #### C MP ####[facility] Jqjojxwqxw9944 [place], [place] [address]Na. Farhat Leal EGFR-NON AF MARTINIQUAIS 59 mL/min/1.73m2 Critically low >=60 [facility] Comment on above: Performed By: #### C MP ####[facility] Je[address]ufllsg[address] [place] [phone]. Farhat Leal Globulin (S) [Mass/Vol] 3.1 g/dL Normal [facility] Comment on above: Performed By: #### C MP ####[facility] Xlmrzciily27[address] [place] [phone]. Farhat Leal Glucose [Mass/Vol] 447 mg/dL Critically high 74-106 [facility] Comment on above: Performed By: #### C MP ####[facility] Hqifjdyuiz8946 [place] [phone]. Farhat Leal Potassium [Moles/Vol] 4.5 mmol/L Normal 3.5-5.1 [facility] Comment on above: Performed By: #### C MP ####[facility] Xsnxygoysa7[address] [place] [phone]. Farhat Leal Protein [Mass/Vol] 6.0 g/dL Critically low 6.4-8.[address] [facility] Comment on above: Performed By: #### C MP ####[facility] Hutiifiuyq6351 [place] [phone]. Farhat Leal Sodium [Moles/Vol] 135 mmol/L Critically low 136-[address] [facility] Comment on above: Performed By: #### C MP ####[facility] Kpbaoploil6384 [place] [phone]. Farhat Leal Urea nitrogen [Mass/Vol] 52.0 mg/dL Critically high 7.0-18.0 [facility] Comment on above: Performed By: #### C MP ####[facility] Enkfwanyoi[address] [place] [address]DrSkylar Leal Urea nitrogen/Creatinine [Mass ratio] 43.3 mg/mg Normal [facility] Comment on above: Performed By: #### C MP ####[facility] Og[address]xbwefbu[address] [place] [address]DrSkylar Leal PROTIMEon 05-06-2022 INR Coag (PPP) [Relative time] 2.25 {INR} Normal [facility] Comment on above: Performed By: #### P T ####[facility] [address]wezoycwx[address] [place], [place] [address]DrSkylar Leal INR GUIDELINES SEE BELOW Normal [facility] Comment on above: Result Comment: MALINA RED INR: 2.0 - 3.0 CONDITIONS NOT LISTED BELOW 2.5 - 3.5 FOR PROSTHETIC HEART VALVE REPLACEMENT 2.5 - 3.5 RECURRENT THROMBOSIS Performed By: #### P T ####[facility] Ssgtokrbjg3[address] [place], [place] [address]DrSkylar Leal PT Coag (PPP) [Time] 22.8 s Critically high 9.0-11.6 [facility] Comment on above: Performed By: #### P T ####[facility] Juynelnxea54[address] [place], [place] [address]DrSkylar Leal FK506 (TACROLIMUS) WHOLE BLO ODon 05-04-2022 Tacrolimus (FK506), Blood 10.4 ng/mL Normal 2.0-20.0 [facility] Comment on above: Result Comment: Trou gh (immediately following transplant) 15.0 . Trough (steady state, 2 weeks or more after transplant): 3.0 - 8.0 . Performed by LC-MS/MS technology. Performed By: #### F K506T ####[facility] Ngszfxefjk[address] [place], [place] [address]DrSkylar Leal CBC AUTO DIFFon 05-01-2022 BASO # 0.1 103/ul Normal 0.0-0.1 [facility] Comment on above: Performed By: #### C BC ####[facility] Wahwfzltqu[address] [place], [place] [address]DrSkylar Lela Basophils/100 WBC (Bld) 0.7 % Normal 0.2-2.0 [facility] Comment on above: Performed By: #### C BC ####[facility] Bhqbpbeiem[address] [place] [address]Dr. Farhat Leal EO # 0.2 103/ul Normal 0.0-0.7 [facility] Comment on above: Performed By: #### C BC ####[facility] Cujjuvxifw3[address] [place], [place] [address]Dr. Farhat Leal Eosinophils/100 WBC (Bld) 3.2 % Normal 0.9-7.0 [facility] Comment on above: Performed By: #### C BC ####[facility] Lrogywuamr3716[address] [place], [place] [address]Dr. Farhat Leal Erythrocyte distribution width (RBC) [Ratio] 16.4 % Critically high 11.0-15.0 [facility] Comment on above: Performed By: #### C BC ####[facility] Euxnzkfvee1615[address] [place], [place] [address]Dr. Farhat Leal Hematocrit (Bld) [Volume fraction] 35.1 % Critically low 42.0-54.0 [facility] Comment on above: Performed By: #### C BC ####[facility] Iwxvbljojp7694[address] [place], [place] [address]Dr. Farhat Leal Hemoglobin (Bld) [Mass/Vol] 11.6 g/dL Critically low 14.0-18.0 [facility] Comment on above: Performed By: #### C BC ####[facility] Byrzamrxum3122[address] [place], [place] [address]Dr. Farhat Leal IG # 0.03 10e3/ul Normal 0.00-0.03 [facility] Comment on above: Performed By: #### C BC ####[facility] Eooknbsnmb7[address] [place], [place] [address]Dr. Farhat Leal IG % 0.4 % Normal 0.0-0.5 [facility] Comment on above: Performed By: #### C BC ####[facility] Gtxfayvfqp[address] [place] [address]Dr. Farhat Elvis LYMPH # 2.4 103/ul Normal 1.2-3.8 [facility] Comment on above: Performed By: #### C BC ####[facility] Sxtptyuagd[address] [place] [address]Dr. Farhat Elvis Lymphocytes/100 WBC (Bld) 35.1 % Normal 20.5-60.0 [facility] Comment on above: Performed By: #### C BC ####[facility] Oeszdoziyt[address] [place] [address]Dr. Madelynlorri Leal MANUAL DIFF REQ NO Normal [facility] Comment on above: Performed By: #### C BC ####[facility] Pyjdstyyoz5086 [place] [address]Dr. Farhat Elvis MCH (RBC) [Entitic mass] 29.4 pg Normal 25.9-34.0 [facility] Comment on above: Performed By: #### C BC ####[facility] Xqhhwmsbxy14[address] [place], [place] [address]Dr. Farhat Elvis MCHC (RBC) [Mass/Vol] 33.0 g/dL Normal 29.9-35.2 [facility] Comment on above: Performed By: #### C BC ####[facility] Xtutyaslym2884[address] [place], [place] [address]Dr. Madelynlorri Leal MCV (RBC) [Entitic vol] 88.9 fL Normal 80.0-94.0 [facility] Comment on above: Performed By: #### C BC ####[facility] Emrmsibtwr4874[address] [place], [place] [address]Dr. Farhat Elvis MONO # 0.7 103/ul Normal 0.3-0.8 [facility] Comment on above: Performed By: #### C BC ####[facility] Oczushpgyy9972[address] [place], [place] [address]Dr. Madelynlorri Leal Monocytes/100 WBC (Bld) 9.6 % Normal 1.7-12.0 [facility] Comment on above: Performed By: #### C BC ####[facility] Zadzxtumcn49[address] [place], [place] [address]Dr. Farhat Leal NEUT # 3.5 103/ul Normal 1.4-6.5 [facility] Comment on above: Performed By: #### C BC ####[facility] Wksqeqwdnj4793 [place] [phone]. Farhat Leal Neutrophils/100 WBC (Bld) 51.0 % Normal 43.0-75.0 [facility] Comment on above: Performed By: #### C BC ####[facility] Rkmtxuwzta9[address] [place] [address]Dr. Farhat Leal Platelet mean volume (Bld) [Entitic vol] 10.3 fL Normal 9.5-13.5 [facility] Comment on above: Performed By: #### C BC ####[facility] U[address]jzhvoox5[address] [place] [address]Dr. Farhat Elvis PLT 184 103/ul Normal 150-450 [facility] Comment on above: Performed By: #### C BC ####[facility] Cddlvexcyp0514 [place] [address]Dr. Madelynlorri Elvis RBC 3.95 106/ul Critically low 4.70-6.10 [facility] Comment on above: Performed By: #### C BC ####[facility] Mhqtovnpga16[address] [place] [address]Dr. Farhat Elvis WBC 7.0 103/ul Normal 4.0-11.0 [facility] Comment on above: Performed By: #### C BC ####[facility] Zrirqvbsyh9238 [place] [address]DrSkylar Leal PROF 14(COMP METB)on 023 Albumin [Mass/Vol] 2.6 g/dL Critically low 3.4-5.0 [facility] Comment on above: Performed By: #### C MP ####[facility] Fmtdacxdjx72[address] [place] [address]Dr. Farhat Leal Albumin/Globulin [Mass ratio] 0.9 {ratio} Normal [facility] Comment on above: Performed By: #### C MP ####[facility] Pnqwopelfc4[address] [place] [address]Dr. Farhat Elvis ALP [Catalytic activity/Vol] 53 U/L Normal 46-116 [facility] Comment on above: Performed By: #### C MP ####[facility] H[address]uxtlfdc13[address] [place], [place] [address]Dr. Farhat Elvis ALT [Catalytic activity/Vol] 17 U/L Normal 16-63 [facility] Comment on above: Performed By: #### C MP ####[facility] L[address]ayvopla2722[address] [place], [place] [address]Dr. Farhat Elvis Anion gap [Moles/Vol] 10.0 mmol/L Normal [facility] Comment on above: Performed By: #### C MP ####[facility] Hcldcplcjf1128[address] [place], [place] [address]Dr. Farhat Elvis AST [Catalytic activity/Vol] 19 U/L Normal 15-37 [facility] Comment on above: Performed By: #### C MP ####[facility] Txcyazjuig6404[address] [place], [place] [address]Dr. Farhat Elvis Bilirubin [Mass/Vol] 0.5 mg/dL Normal 0.2-1.0 [facility] Comment on above: Performed By: #### C MP ####[facility] Saavtlxhxn27[address] [place], [place] [address]Dr. Farhat Elvis Calcium [Mass/Vol] 8.4 mg/dL Critically low 8.5-10.1 [facility] Comment on above: Performed By: #### C MP ####[facility] Buwncbghlf[address] [place], [place] [address]Dr. Farhat Leal Chloride [Moles/Vol] 108 mmol/L Critically high 98-107 [facility] Comment on above: Performed By: #### C MP ####[facility] Zpdjnkgpom3835[address] [place], [place] [address]Dr. Farhat Leal CO2 [Moles/Vol] 26.9 mmol/L Normal 21.0-32.0 [facility] Comment on above: Performed By: #### C MP ####[facility] Mvpajrcmkh1055[address] [place], [place] [address]Dr. Farhat Leal Creatinine [Mass/Vol] 1.20 mg/dL Normal 0.70-1.30 [facility] Comment on above: Performed By: #### C MP ####[facility] Tssajfebnn8[address] [place] [address]Dr. Farhat Elvis EGFR-AF MARTINIQUAIS >60 Normal >=60 [facility] Comment on above: Performed By: #### C MP ####[facility] Hguyrfdbiq8757 [place] [address]Dr. Farhat Leal EGFR-NON AF MARTINIQUAIS 59 mL/min/1.73m2 Critically low >=60 [facility] Comment on above: Performed By: #### C MP ####[facility] Fivjdsthfm2235[address] [place], [place] [address]Dr. Farhat Leal Globulin (S) [Mass/Vol] 3.0 g/dL Normal [facility] Comment on above: Performed By: #### C MP ####[facility] Mqbwnhvmod0694[address] [place], [place] [address]Dr. Farhat Leal Glucose [Mass/Vol] 213 mg/dL Critically high 74-106 [facility] Comment on above: Performed By: #### C MP ####[facility] Yqsrwhnukn[address] [place], [place] [address]Dr. Farhat Leal Potassium [Moles/Vol] 3.9 mmol/L Normal 3.5-5.1 [facility] Comment on above: Performed By: #### C MP ####[facility] Dqxxhomtiw3051 [place] [address]Dr. Farhat Leal Protein [Mass/Vol] 5.6 g/dL Critically low 6.4-8.[address] [facility] Comment on above: Performed By: #### C MP ####[facility] Ghivkfayll7951 [place] [address]Dr. Farhat Leal Sodium [Moles/Vol] 141 mmol/L Normal 136-145 [facility] Comment on above: Performed By: #### C MP ####[facility] Nkyzmjogvn5411 [place] [address]Dr. Farhat Leal Urea nitrogen [Mass/Vol] 61.0 mg/dL Critically high 7.0-18.0 [facility] Comment on above: Performed By: #### C MP ####[facility] Gygkozwrjv9[address] [place], [place] [address]Dr. Farhat Leal Urea nitrogen/Creatinine [Mass ratio] 50.8 mg/mg Normal [facility] Comment on above: Performed By: #### C MP ####[facility] Vkvcgctdrf38[address] [place], [place] [address]Dr. Farhat Leal FK506 (TACROLIMUS) WHOLE BLO ODon 04-27-2022 Tacrolimus (FK506), Blood 16.5 ng/mL Normal 2.0-20.0 [facility] Comment on above: Result Comment: Trou gh (immediately following transplant) 15.0 . Trough (steady state, 2 weeks or more after transplant): 3.0 - 8.0 . Performed by LC-MS/MS technology. Performed By: #### F K506T ####[facility] Owzigeeusu[address] [place], [place] [address]Dr. Farhat Leal CBC AUTO DIFFon 04-24-2022 BASO # 0.0 103/ul Normal 0.0-0.1 [facility] Comment on above: Performed By: #### C BC ####[facility] Zwpndzilld1566[address] [place], [place] [address]Dr. Farhat Elvis Basophils/100 WBC (Bld) 0.5 % Normal 0.2-2.0 [facility] Comment on above: Performed By: #### C BC ####[facility] Dojblrijxm[address] [place], [place] [address]Dr. Farhat Elvis EO # 0.2 103/ul Normal 0.0-0.7 [facility] Comment on above: Performed By: #### C BC ####[facility] Wbwiumnfai2194[address] [place], [place] [address]Dr. Madelynlorri Leal Eosinophils/100 WBC (Bld) 3.1 % Normal 0.9-7.0 [facility] Comment on above: Performed By: #### C BC ####[facility] Gujdrwuqri87[address] [place], [place] [address]Dr. Farhat Leal Erythrocyte distribution width (RBC) [Ratio] 16.3 % Critically high 11.0-15.0 [facility] Comment on above: Performed By: #### C BC ####[facility] Ekqrgbpdem[address] [place] [address]Dr. Farhat Leal Hematocrit (Bld) [Volume fraction] 34.0 % Critically low 42.0-54.0 [facility] Comment on above: Performed By: #### C BC ####[facility] Mdjzzbzvkr6098 [place] [address]Dr. Farhat Leal Hemoglobin (Bld) [Mass/Vol] 11.6 g/dL Critically low 14.0-18.0 [facility] Comment on above: Performed By: #### C BC ####[facility] Afauduaskk15[address] [place], [place] [address]Dr. Farhat Leal IG # 0.02 10e3/ul Normal 0.00-0.03 [facility] Comment on above: Performed By: #### C BC ####[facility] Tysbmntszc4[address] [place], [place] [address]Dr. Farhat Leal IG % 0.4 % Normal 0.0-0.5 [facility] Comment on above: Performed By: #### C BC ####[facility] Or[address]qairw[address] [place], [place] [address]Dr. Farhat Elvis LYMPH # 2.2 103/ul Normal 1.2-3.8 [facility] Comment on above: Performed By: #### C BC ####[facility] Czcvcqfsvn[address] [place], [place] [address]Dr. Farhat Elvis Lymphocytes/100 WBC (Bld) 38.8 % Normal 20.5-60.0 [facility] Comment on above: Performed By: #### C BC ####[facility] Irvcojgpub[address] [place], [place] [address]Dr. Madelynlorri Leal MANUAL DIFF REQ NO Normal [facility] Comment on above: Performed By: #### C BC ####[facility] Jdxblglccm[address] [place], [place] [address]Dr. Yilorri Leal MCH (RBC) [Entitic mass] 30.1 pg Normal 25.9-34.0 [facility] Comment on above: Performed By: #### C BC ####[facility] [address] [place] [address]Dr. Farhat Leal MCHC (RBC) [Mass/Vol] 34.1 g/dL Normal 29.9-35.2 [facility] Comment on above: Performed By: #### C BC ####[facility] Rosicpzwtv[address] [place], [place] [address]Dr. Farhat Elvis MCV (RBC) [Entitic vol] 88.1 fL Normal 80.0-94.0 [facility] Comment on above: Performed By: #### C BC ####[facility] Fkcwtqdqqi[address] [place], [place] [address]Dr. Farhat Leal MONO # 0.6 103/ul Normal 0.3-0.8 [facility] Comment on above: Performed By: #### C BC ####[facility] Ubprtyphpo[address] [place], [place] [address]Dr. Madelynlorri Leal Monocytes/100 WBC (Bld) 10.8 % Normal 1.7-12.0 [facility] Comment on above: Performed By: #### C BC ####[facility] Xirbnduidw[address] [place], [place] [address]Dr. Farhat Leal NEUT # 2.6 103/ul Normal 1.4-6.5 [facility] Comment on above: Performed By: #### C BC ####[facility] Epcpnywaxi[address] [place], [place] [address]Dr. Madelynlorri Leal Neutrophils/100 WBC (Bld) 46.4 % Normal 43.0-75.0 [facility] Comment on above: Performed By: #### C BC ####[facility] Erwvpcjqdg[address] [place], [place] [address]Dr. Farhat Elvis Platelet mean volume (Bld) [Entitic vol] 10.9 fL Normal 9.5-13.5 [facility] Comment on above: Performed By: #### C BC ####[facility] [address] [place] [id number]. Farhat Leal PLT 159 103/ul Normal 150-450 [facility] Comment on above: Performed By: #### C BC ####[facility] [address]rgll[address] [place] [address]Dr. Farhat Leal RBC 3.86 106/ul Critically low 4.70-6.10 [facility] Comment on above: Performed By: #### C BC ####[facility] Vtso[address]ipwa[address] [place], [place] [address]Dr. Farhat Leal WBC 5.6 103/ul Normal 4.0-11.0 [facility] Comment on above: Performed By: #### C BC ####[facility] Rmsjrbovsa[address] [place], [place] [address]Dr. Farhat Elvis PROTIMEon 04-24-2022 INR Coag (PPP) [Relative time] 3.23 {INR} Normal [facility] Comment on above: Performed By: #### P T ####[facility] Pkynluavtv[address] [place], [place] [address]Dr. Farhat Leal INR GUIDELINES SEE BELOW Normal [facility] Comment on above: Result Comment: MALINA RED INR: 2.0 - 3.0 CONDITIONS NOT LISTED BELOW 2.5 - 3.5 FOR PROSTHETIC HEART VALVE REPLACEMENT 2.5 - 3.5 RECURRENT THROMBOSIS Performed By: #### P T ####[facility] Usmenzcvrj[address] [place], [place] [address]Dr. Farhat Leal PT Coag (PPP) [Time] 32.0 s Critically high 9.0-11.6 [facility] Comment on above: Performed By: #### P T ####[facility] Tviqhmhtxn[address] [place], [place] [address]Dr. Farhat Elvis FK506 (TACROLIMUS) WHOLE BLO ODon 04-20-2022 Tacrolimus (FK506), Blood 13.9 ng/mL Normal 2.0-20.0 [facility] Comment on above: Result Comment: Trou gh (immediately following transplant) 15.0 . Trough (steady state, 2 weeks or more after transplant): 3.0 - 8.0 . Performed by LC-MS/MS technology. Performed By: #### F K506T ####[facility] [address] [place] [address]Dr. Farhat Leal CBC AUTO DIFFon 04-17-2022 BASO # 0.0 103/ul Normal 0.0-0.1 [facility] Comment on above: Performed By: #### C BC ####[facility] Hdoqrgtnsy[address] [place], [place] [address]Dr. Farhat Leal Basophils/100 WBC (Bld) 0.4 % Normal 0.2-2.0 [facility] Comment on above: Performed By: #### C BC ####[facility] Lewjdruqxn[address] [place], [place] [address]Dr. Farhat Leal EO # 0.2 103/ul Normal 0.0-0.7 [facility] Comment on above: Performed By: #### C BC ####[facility] Pagxxlkcef5[address] [place], [place] [address]Dr. Farhat Leal Eosinophils/100 WBC (Bld) 2.8 % Normal 0.9-7.0 [facility] Comment on above: Performed By: #### C BC ####[facility] Irpfasflxj[address] [place], [place] [address]Dr. Farhat Leal Erythrocyte distribution width (RBC) [Ratio] 16.1 % Critically high 11.0-15.0 [facility] Comment on above: Performed By: #### C BC ####[facility] W[address]kvbaquv[address] [place], [place] [address]Dr. Farhat Leal Hematocrit (Bld) [Volume fraction] 35.7 % Critically low 42.0-54.0 [facility] Comment on above: Performed By: #### C BC ####[facility] Wojeamyogw[address] [place], [place] [address]Dr. Farhat Leal Hemoglobin (Bld) [Mass/Vol] 12.2 g/dL Critically low 14.0-18.0 [facility] Comment on above: Performed By: #### C BC ####[facility] K[address]lx[address]lvg[address] [place], [place] [address]Dr. Madelynlorri Leal IG # 0.03 10e3/ul Normal 0.00-0.03 [facility] Comment on above: Performed By: #### C BC ####[facility] X[address]zfyal[address] [place] [address]Dr. Farhat Leal IG % 0.4 % Normal 0.0-0.5 [facility] Comment on above: Performed By: #### C BC ####[facility] Bpbpcrzglr75[address] [place] [address]DrSkylar Farhat Leal LYMPH # 2.4 103/ul Normal 1.2-3.8 [facility] Comment on above: Performed By: #### C BC ####[facility] Zggijyhejr64[address] [place], [place] [address]DrSkylar Farhat Elvis Lymphocytes/100 WBC (Bld) 36.1 % Normal 20.5-60.0 [facility] Comment on above: Performed By: #### C BC ####[facility] Wlfzlaqrwm[address] [place], [place] [address]DrSkylar Farhat Elvis MANUAL DIFF REQ NO Normal [facility] Comment on above: Performed By: #### C BC ####[facility] B[address]uditbjyi[address] [place], [place] [address]Dr. Farhat Leal MCH (RBC) [Entitic mass] 30.3 pg Normal 25.9-34.0 [facility] Comment on above: Performed By: #### C BC ####[facility] Apbpjulbzb[address] [place], [place] [address]Dr. Farhat Leal MCHC (RBC) [Mass/Vol] 34.2 g/dL Normal 29.9-35.2 [facility] Comment on above: Performed By: #### C BC ####[facility] Suruuqcwpm8966[address] [place], [place] [address]DrSkylar Farhat Elvis MCV (RBC) [Entitic vol] 88.6 fL Normal 80.0-94.0 [facility] Comment on above: Performed By: #### C BC ####[facility] Knwh[address]kgpp[address] [place], [place] [address]DrSkylar Farhat Elvis MONO # 0.7 103/ul Normal 0.3-0.8 [facility] Comment on above: Performed By: #### C BC ####[facility] [address]zsmawb[address] [place] [address]Dr. Farhat Leal Monocytes/100 WBC (Bld) 10.1 % Normal 1.7-12.0 [facility] Comment on above: Performed By: #### C BC ####[facility] [address]whn[address] [place] [phone]. Farhat Leal NEUT # 3.4 103/ul Normal 1.4-6.5 [facility] Comment on above: Performed By: #### C BC ####[facility] Epbdlnujva55[address] [place] [address]Dr. Farhat Leal Neutrophils/100 WBC (Bld) 50.2 % Normal 43.0-75.0 [facility] Comment on above: Performed By: #### C BC ####[facility] Xxizqcgiji[address] [place] [address]Dr. Farhat Leal Platelet mean volume (Bld) [Entitic vol] 11.8 fL Normal 9.5-13.5 [facility] Comment on above: Performed By: #### C BC ####[facility] Ifdmilwrbd41[address] [place] [address]Dr. Farhat Leal PLT 193 103/ul Normal 150-450 [facility] Comment on above: Performed By: #### C BC ####[facility] [address]dzmbie[address] [place] [address]Dr. Farhat Leal RBC 4.03 106/ul Critically low 4.70-6.10 [facility] Comment on above: Performed By: #### C BC ####[facility] [address]wgpb[address] [place] [id number]. Farhat Leal WBC 6.8 103/ul Normal 4.0-11.0 [facility] Comment on above: Performed By: #### C BC ####[facility] [address]zpdd4[address] [place] [address]DrSkylar Leal PROF 14(COMP METB)on 023 Albumin [Mass/Vol] 2.9 g/dL Critically low 3.4-5.0 [facility] Comment on above: Performed By: #### C MP ####[facility] Lpzos[address]rkz[address] [place] [address]Dr. Farhat Leal Albumin/Globulin [Mass ratio] 0.9 {ratio} Normal [facility] Comment on above: Performed By: #### C MP ####[facility] E[address]fypxlju[address] [place] [address]Dr. Farhat Elvis ALP [Catalytic activity/Vol] 67 U/L Normal 46-116 [facility] Comment on above: Performed By: #### C MP ####[facility] Dymxtpdrxv5[address] [place] [address]Dr. Farhat Elvis ALT [Catalytic activity/Vol] 15 U/L Critically low 16-63 [facility] Comment on above: Performed By: #### C MP ####[facility] Tjexprorog[address] [place], [place] [address]Dr. Farhat Elvis Anion gap [Moles/Vol] 10.8 mmol/L Normal [facility] Comment on above: Performed By: #### C MP ####[facility] U[address]nsvdtqe[address] [place], [place] [address]Dr. Farhat Elvis AST [Catalytic activity/Vol] 23 U/L Normal 15-37 [facility] Comment on above: Performed By: #### C MP ####[facility] Xfpqqrhlir8[address] [place], [place] [address]Dr. Farhat Elvis Bilirubin [Mass/Vol] 0.6 mg/dL Normal 0.2-1.0 [facility] Comment on above: Performed By: #### C MP ####[facility] Eybcsjhcrx[address] [place], [place] [address]Dr. Farhat Elvis Calcium [Mass/Vol] 8.7 mg/dL Normal 8.5-10.1 [facility] Comment on above: Performed By: #### C MP ####[facility] Jz[address]jxuhko[address] [place], [place] [address]Dr. Farhat Leal Chloride [Moles/Vol] 105 mmol/L Normal 98-107 [facility] Comment on above: Performed By: #### C MP ####[facility] H[address]fodlxj30[address] [place] [id number]. Farhat Leal CO2 [Moles/Vol] 29.5 mmol/L Normal 21.0-32.0 [facility] Comment on above: Performed By: #### C MP ####[facility] Mprypoqrts6[address] [place] [id number]. Farhat Leal Creatinine [Mass/Vol] 1.37 mg/dL Critically high 0.70-1.30 [facility] Comment on above: Performed By: #### C MP ####[facility] Nsbiqejpmw[address] [place] [phone]. Farhat Leal EGFR-AF MARTINIQUAIS >60 Normal >=60 [facility] Comment on above: Performed By: #### C MP ####[facility] P[address]wnqclcg[address] [place] [id number]. Farhat Elvis EGFR-NON AF MARTINIQUAIS 50 mL/min/1.73m2 Critically low >=60 [facility] Comment on above: Performed By: #### C MP ####[facility] Ngktbpbdor5502 [place] [phone]. Farhat Elvis Globulin (S) [Mass/Vol] 3.1 g/dL Normal [facility] Comment on above: Performed By: #### C MP ####[facility] H[address]ztpgiapn7[address] [place] [phone]. Farhat Elvis Glucose [Mass/Vol] 203 mg/dL Critically high 74-106 [facility] Comment on above: Performed By: #### C MP ####[facility] O[address]rcztp[address] [place] [phone]. Farhat Leal Potassium [Moles/Vol] 4.3 mmol/L Normal 3.5-5.1 [facility] Comment on above: Performed By: #### C MP ####[facility] Wzw[address]hnhnwi6[address] [place] [phone]. Farhat Elvis Protein [Mass/Vol] 6.0 g/dL Critically low 6.4-8.[address] [facility] Comment on above: Performed By: #### C MP ####[facility] Dwfgwyxyhs16[address] [place] [address]Dr. Farhat Leal Sodium [Moles/Vol] 141 mmol/L Normal 136-145 [facility] Comment on above: Performed By: #### C MP ####[facility] J[address]zwwoudes[address] [place] [address]Dr. Farhat Leal Urea nitrogen [Mass/Vol] 65.0 mg/dL Critically high 7.0-18.0 [facility] Comment on above: Performed By: #### C MP ####[facility] Exfgwxlkqs07[address] [place] [address]Dr. Farhat Leal Urea nitrogen/Creatinine [Mass ratio] 47.4 mg/mg Normal [facility] Comment on above: Performed By: #### C MP ####[facility] [address]wdiee[address] [place] [address]Dr. Farhat Leal PROTIMEon 04-15-2022 INR Coag (PPP) [Relative time] 3.88 {INR} Normal [facility] Comment on above: Performed By: #### P T ####[facility] Ol[address]duztd19[address] [place] [address]Dr. Farhat Leal INR GUIDELINES SEE BELOW Normal [facility] Comment on above: Result Comment: MALINA RED INR: 2.0 - 3.0 CONDITIONS NOT LISTED BELOW 2.5 - 3.5 FOR PROSTHETIC HEART VALVE REPLACEMENT 2.5 - 3.5 RECURRENT THROMBOSIS Performed By: #### P T ####[facility] [address]tr[address] [place] [address]Dr. Farhat Leal PT Coag (PPP) [Time] 38.1 s Critically high 9.0-11.6 [facility] Comment on above: Performed By: #### P T ####[facility] [address] [place], [place] [address]Dr. Farhat Leal Glucose Glucometer (BldC) [M ass/Vol]Ordered [...] 0 04-14-2022 Commemt1 Glu2: Cleaned Meter Normal [facility] Comment on above: Result Comment: PERF ORMED BY: [facility] [place] [address] PATHOLOGIST ASSISTANT FRONT END MANAGER JOSE F ELLIOTT M.D. Performed By: #### G LULS #### Point of Care testing , Glucose [Mass/Vol] 162 mg/dL Normal [facility] Comment on above: Result Comment: [place] om Glucose Reference Range is dependent on time and content of last meal. Glucose of more than 200 mg/dL in a nonstressed, ambulatory subject supports the diagnosis of Diabetes Mellitus. Performed By: #### G LULS #### Point of Care testing , No Panel InformationOrdered By: Sadia Aguilar on 04-14-2022 Bedside Glucose Comment Glu2: cleaned meter [facility] MAGNESIUMon 04-13-2022 Magnesium [Mass/Vol] 1.7 mg/dL Critically low 1.8-2.4 [facility] Comment on above: Performed By: #### M HENRI Manzo ####[facility] [address]riqy[address] [place] [address]Dr. Farhat Leal PHOSPHORUSon 04-13-2022 Phosphate [Mass/Vol] 4.8 mg/dL Critically high 2.6-4.7 [facility] Comment on above: Performed By: #### M HENRI Manzo ####[facility] [address]izjtpz[address] [place] [phone]. Farhat Leal PROTIMEon 04-13-2022 INR Coag (PPP) [Relative time] 3.16 {INR} Normal [facility] Comment on above: Performed By: #### P T ####[facility] [address]fwu[address] [place] [address]Dr. Farhat Leal INR GUIDELINES SEE BELOW Normal [facility] Comment on above: Result Comment: MALINA RED INR: 2.0 - 3.0 CONDITIONS NOT LISTED BELOW 2.5 - 3.5 FOR PROSTHETIC HEART VALVE REPLACEMENT 2.5 - 3.5 RECURRENT THROMBOSIS Performed By: #### P T ####[facility] Iv[address]ys[address]zsfq[address] [place] [address]Dr. Farhat Leal PT Coag (PPP) [Time] 31.4 s Critically high 9.0-11.6 [facility] Comment on above: Performed By: #### P T ####[facility] Vw[address]fz[address] [place] [address]Dr. Farhat Leal MAGNESIUMon 03-11-2022 Magnesium [Mass/Vol] 1.6 mg/dL Critically low 1.8-2.4 [facility] Comment on above: Performed By: #### M HENRI Manzo ####[facility] [address]boxxjd[address] [place], [place] [address]Dr. Farhat Leal PHOSPHORUSon 03-11-2022 Phosphate [Mass/Vol] 5.3 mg/dL Critically high 2.6-4.7 [facility] Comment on above: Performed By: #### M HENRI Manzo ####[facility] Ps[address]oofrt[address] [place], [place] [address]Dr. Farhat Leal CNOVon 02-26-2022 CNOV Office Visit (HONEY ) ALEX ALMONTE ([id number]) 1945 M TRN Date Time Provider Department 02/26/22 3:00 PM HINA PETERSON During your visit today, we recorded the following information about you: Temperature Pulse Blood pressure 96.6 degrees 75/minute 88/75 Hina Peterson MD, MD 02/26/2022 4:31 PM Signed [facility] OF VASCULAR SURGERY OUTPATIENT VISIT DATE [...] his postop visit. He has been in detention since then and has been recovering from his acute on chronic congestive heart failure. His wound has largely been healing without any issues and the maxwell and sutures were removed at the nursing facility. He comes here with a lateral wound eschar. He denies any fevers, chills, or any drainage. He is on anticoagulation. 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) 11/29/2021 BPH (benign prostatic hyperplasia) CAD (coronary artery disease) 2016 s/p PCI 2016 and CABG 2019 Diabetes mellitus ([facility]) Diabetic neuropathy ([facility]) Diabetic retinopathy ([facility]) HTN (hypertension) Hyperlipidemia Impaired vision in both eyes KIDNEY TRANSPLANT STATUS 09/07/2003 ESRD s/p renal transplant in 2001 on chronic immunosuppression . Patient on mycophenolate mofetil , cellcept and prednisone Mixed hyperlipidemia due to type 2 diabetes mellitus ([facility]) 11/29/2021 Osteomyelitis ([facility]) 11/29/2021 Paroxysmal atrial fibrillation ([facility]) Renal transplant, status post SA node dysfunction ([facility]) s/p pacemaker Type 2 diabetes mellitus with diabetic neuropathy, with long-term current use of insulin ([facility]) 02/24/2002 PAST SURGICAL HISTORY Procedure Laterality [...] by mouth daily with lunch. Magic Cup Lajas with lunch aspirin, enteric coated (ASPIRIN, ENTERIC COATED) 81 mg EC tablet Take 1 tablet by (more content not included)... [facility] PROT[facility] 02-25-2022 INR Coag (PPP) [Relative time] 1.31 {INR} Normal [facility] Comment on above: Performed By: #### P T ####[facility] [address]btbxp[address] [place] [address]DrSkylar Leal INR GUIDELINES SEE BELOW Normal [facility] Comment on above: Result Comment: MALINA RED INR: 2.0 - 3.0 CONDITIONS NOT LISTED BELOW 2.5 - 3.5 FOR PROSTHETIC HEART VALVE REPLACEMENT 2.5 - 3.5 RECURRENT THROMBOSIS Performed By: #### P T ####[facility] [address]jv[address] [place] [address]DrSkylar Leal PT Coag (PPP) [Time] 13.7 s Critically high 9.0-11.6 [facility] Comment on above: Performed By: #### P T ####[facility] [address]yt[address] [place] [address]DrSkylar Leal CNPRosalie 02-19-2022 CNPN Telephone (TXCTGL) ALEX ALMONTE ([id number]) 1945 M TRN Date Time Provider Department [...] by mouth daily with lunch. 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 DIABETES UNCOMPL ADULT-UNCONTRLLED [[id number]] 02/24/2002 KIDNEY TRANSPLANT STATUS [Z94.0] 09/07/2003 PROPHYLACTIC IMMUNOTHERAPY [Z29.8] 07/30/2006 RESIDENTIAL STEROIDS [[id number]] 07/30/2006 VITAMIN D DEFICIENCY NOS [E55.9] 09/07/2008 [...] diabetes mellitus with diabetic peripher*11/29/2021 Atherosclerosis of gila river artery of extremity w*11/29/2021 Malnutrition of moderate degree (HCC) [E44.0] 12/01/2021 Dermatitis associated with moisture [L30.8] 12/04/2021 Encounter Status:Closed by AUGUSTA MEDRANO on 02/19/22 [facility] Sonya 02-18-2022 CNPN Telephone (PODCCP) ALEX ALMONTE ([id number]) 1945 [facility] Date Time Provider Department 02/18/22 DEVON MOREIRA PODCCP During your visit today, we recorded the following information about you: Yumikoev Denise 02/18/2022 3:16 PM Signed Reason for call: Mr. Almonte would like to request a sooner appointment with Dr. Peterson than 04/13/2022. Contact Name (if not the patient) Alex's nurse Home and cell number(Ask for Alex's nurse) [phone] Diagnosis 4 mo f/u wound check Best regards, Yumiko Beadr 02/19/2022 12:22 PM Signed Alex Almonte appointments [...] by mouth daily with lunch. 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 Normal [facility] CNOVon 02-05-2022 CNOV Office Visit (TXCTGL ) SUZYALEX Love ([id number]) 1945 M TRN Date Time Provider Department 02/05/22 8:20 AM [facility] TXP [facility]INIC TXCTGL During your visit today, we recorded the following information about you: Temperature Pulse Blood pressure 96.7 degrees 79/minute 72/42 Asia Pike MD 02/05/2022 9:38 AM Signed [facility] Transplant Follow up Portions of this note [...] snacks patient declined. Indra scale at [facility]: 166.2 lbs per patient. Bed sore on coccyx causing discomfort. Being changed regularly at SNF- reported to be smaller around but still as deep. Patient not very up to date with medications. Patient brought paperwork from [employer] with all medications being received. Patient unsure if they have been drawing labs regularly. Last Tac from 01/19: 12.9 and K 5.9. In need of current labs. Lab orders will be sent with patient and follows as below: [facility] Trans[facility] Standing Lab Orders [address] [place], [place] [address] February 05, 2022 Alex Almonte 1945 [id number] STANDARD TESTING: Diagnosis Codes: Z94.0 Kidney Transplant [...] AT YOUR LABORATORY FACILITY AND FAX TO [phone]. PLEASE CALL [phone]. Provider: Dr. Pike Current Outpatient Medications Medication [...] (more content not included)... Normal [facility] PROTEIN CREATININE RATIOon 1 04-08-2021 Protein/Creatinine (U) [Mass ratio] 0.10 mg/mg <0.15 mg/mg [facility] PROTIMEon 02-05-2022 INR Coag (PPP) [Relative time] 2.90 {INR} Normal [facility] Comment on above: Performed By: #### P T ####[facility] [address]dt[address] [place] [phone]. Farhat Leal INR GUIDELINES SEE BELOW Normal [facility] Comment on above: Result Comment: MALINA RED INR: 2.0 - 3.0 CONDITIONS NOT LISTED BELOW 2.5 - 3.5 FOR PROSTHETIC HEART VALVE REPLACEMENT 2.5 - 3.5 RECURRENT THROMBOSIS Performed By: #### P T ####[facility] [address]txvewkirr[address] [place] [phone]. Farhat Leal PT Coag (PPP) [Time] 29.2 s Critically high 9.0-11.6 [facility] Comment on above: Performed By: #### P T ####[facility] [address] [place] [address]Dr. Farhat Leal Prot/Creat Uron 02-05-2022 Protein/Creatinine (U) [Mass ratio] 0.10 mg/mg Normal <0.15 [facility] Comment on above: Order Comment: Speci men Type: URINE SPECIMENOrdering Facility: [facility] Address: [address] [place] [address] Result Comment: Adul t Proteinuria Categories: <0.15 mg/mg is considered normal to mildly increased 0.15 - 0.50 mg/mg is considered moderately increased >0.50 mg/mg is considered severely increased KDIGO. (2013). KDIGO 2012 Clinical Practice Guideline for the Evaluation and Management of Chronic Kidney Disease. Official Journal of the International Society of Nephrology, 3(1), 1-150. Performed By: #### 2 890-2 ####[facility]CLIA [id number] [address] STATES OF [facility] Protein/Creatinine (U) [Mass ratio]on 02-05-2022 Creatinine (U) [Mass/Vol] 86.9 mg/dL 20.0 - 300.0 mg/dL [facility] Protein (U) [Mass/Vol] 9 mg/dL 0 - 20 mg/dL [facility] Creatinine (U) [Mass/Vol] 86.9 mg/dL Normal 20.0-300.0 [facility] Comment on above: Order Comment: Speci men Type: URINE SPECIMENOrdering Facility: [facility] Address: [address] [place] [address] Performed By: #### 2 890-2 ####[facility] LABCLIA [id number] [place] [address] [place] Protein (U) [Mass/Vol] 9 mg/dL Normal 0-20 [facility] Comment on above: Order Comment: Speci men Type: URINE SPECIMENOrdering Facility: [facility] Address: [address] [place] [address] Performed By: #### 2 890-2 ####[facility] LABCLIA [id number] [place] [address] [place] URINALYSIS, DIPSTICK ONLYon 02-05-2022 Bilirubin Ql (U) Negative Normal Negative [facility] Comment on above: Order Comment: Speci men Type: URINE SPECIMEN Ordering [facility] Address: [address] [place], [place] [address] Performed By: #### U A #### [facility] CLIA [id number] [facility] [place] [address] [place] Clarity (Unsp spec) Clear Normal Clear [facility] Comment on above: Order Comment: Speci men Type: URINE SPECIMEN [facility] Address: [address] [place], [place] [address] Performed By: #### U A #### [facility] CLIA [id number] [address] [place] [address] [place] Color (U) Yellow Normal Yellow [facility] Comment on above: Order Comment: Speci men Type: URINE SPECIMEN [facility] Address: [address] [place], [place] [address] Performed By: #### U A #### [facility] CLIA [id number] [address] [place] [address] [place] Glucose Test strip (U) [Mass/Vol] 3+ Abnormal Trace, Negative [facility] Comment on above: Order Comment: Speci men Type: URINE SPECIMEN Ordering [facility] Address: [address] [address] Performed By: #### U A #### [facility] CLIA [id number] [address] [place] [address] [place] Hemoglobin Ql (U) Negative Normal Negative, Trace [facility] Comment on above: Order Comment: Speci men Type: URINE SPECIMEN Ordering [facility] Address: [address] [address] Performed By: #### U A #### [facility] CLIA [id number] [address] [place] [address] [place] Ketones Ql (U) Trace Normal Negative, Trace [facility] Comment on above: Order Comment: Speci men Type: URINE SPECIMEN Ordering [facility] Address: [address] [place], [place] [address] Performed By: #### U A #### [facility] CLIA [id number] [address] [place] Leukocyte esterase Test strip Ql (U) Negative Normal Negative, 25 [place]/mL [facility] Comment on above: Order Comment: Speci men Type: URINE SPECIMEN Order[facility] Address: [address] Performed By: #### U A #### [facility] CLIA [id number] [address] [place] [address] [place] Nitrite Ql (U) Negative Normal Negative [facility] Comment on above: Order Comment: Speci men Type: URINE SPECIMEN Order[facility] Address: [address] Performed By: #### U A #### [facility] CLIA [id number] [address] [place] [address] [place] pH (U) 5.5 [pH] Normal 5.0-8.0 [facility] Comment on above: Order Comment: Speci men Type: URINE SPECIMEN [facility] Address: [address] [place] [address] Performed By: #### U A #### [facility] CLIA [id number] [address] [place] [address] [place] Protein (U) [Mass/Vol] Negative Normal Trace , Negative [facility] Comment on above: Order Comment: Speci men Type: URINE SPECIMEN [facility] Address: [address] [place] [address] Performed By: #### U A #### [facility] CLIA [id number] [address] [place] [address] [place] Specific gravity (U) [Rel density] 1.014 Normal 1.005-1.030 [facility] Comment on above: Order Comment: Speci men Type: URINE SPECIMEN [facility] Address: [address] [place] [address] Performed By: #### U A #### [facility] CLIA [id number] [address] [place] [address] [place] Urobilinogen Ql (U) 1+ Abnormal Negative [facility] Comment on above: Order Comment: Speci men Type: URINE SPECIMEN [facility] Address: [address] [place] [address] Performed By: #### U A #### [facility] CLIA [id number] [address] [place] [address] [place] Bilirubin Ql (U) Negative Negative [facility] Clarity (Unsp spec) Clear Clear [place] [facility] Color (U) Yellow Yellow [facility] [place] Urobilinogen Ql (U) 1+ Abnormal Negative [facility] FK506 (TACROLIMUS) WHOLE BLO ODon 01-29-2022 Tacrolimus (FK506), Blood 11.1 ng/mL Normal 2.0-20.0 [facility] Comment on above: Result Comment: Trou gh (immediately following transplant) 15.0 . Trough (steady state, 2 weeks or more after transplant): 3.0 - 8.0 . Performed by LC-MS/MS technology. Performed By: #### F K506T ####[facility] [address] [place], [place] [address]DrSkylar Leal PHOSPHORUSon 01-26-2022 Phosphate [Mass/Vol] 4.1 mg/dL Normal 2.6-4.7 [facility] Comment on above: Performed By: #### C CARA PHOS ####[facility] [address] [place], [place] [address]DrSkylar Leal PROF 14(COMP METB)on 022 Albumin [Mass/Vol] 2.1 g/dL Critically low 3.4-5.0 [facility] Comment on above: Performed By: #### C CARA PHOS ####[facility] [address] [place], [place] [address]DrSkylar Leal Albumin/Globulin [Mass ratio] 0.6 {ratio} Normal [facility] Comment on above: Performed By: #### C CARA PHOS ####[facility] [address] [place], [place] [address]DrSkylar Leal ALP [Catalytic activity/Vol] 89 U/L Normal 46-116 [facility] Comment on above: Performed By: #### C CARA, PHOS ####[facility] S[address] [place], [place] [address]Dr. Farhat Leal ALT [Catalytic activity/Vol] 27 U/L Normal 16-63 [facility] Comment on above: Performed By: #### C CARA, PHOS ####[facility] On[address] [place], [place] [address]Dr. Farhat Leal Anion gap [Moles/Vol] 12.3 mmol/L Normal [facility] Comment on above: Performed By: #### C CARA, PHOS ####[facility] [address] [place], [place] [address]Dr. Farhat Leal AST [Catalytic activity/Vol] 53 U/L Critically high 15-37 [facility] Comment on above: Performed By: #### C CARA, PHOS ####[facility] X[address]pc[address] [place], [place] [address]Dr. Farhat Leal Bilirubin [Mass/Vol] 0.6 mg/dL Normal 0.2-1.0 [facility] Comment on above: Performed By: #### C CARA, PHOS ####[facility] Aeg[address] [place], [place] [address]Dr. Farhat Leal Calcium [Mass/Vol] 8.0 mg/dL Critically low 8.5-10.1 [facility] Comment on above: Performed By: #### C CARA, PHOS ####[facility] N[address] [place], [place] [address]Dr. Farhat Leal Chloride [Moles/Vol] 97 mmol/L Critically low 98-107 [facility] Comment on above: Performed By: #### C CARA, PHOS ####[facility] Kuq[address]ravig[address] [place], [place] [address]Dr. Farhat Leal CO2 [Moles/Vol] 26.6 mmol/L Normal 21.0-32.0 [facility] Comment on above: Performed By: #### C CARA, PHOS ####[facility] [address] [place] [address]Dr. Farhat Leal Creatinine [Mass/Vol] 1.03 mg/dL Normal 0.70-1.30 [facility] Comment on above: Performed By: #### C CARA, PHOS ####[facility] L[address] [place], [place] [address]Dr. Farhat Leal EGFR-AF MARTINIQUAIS >60 Normal >=60 [facility] Comment on above: Performed By: #### C CARA, PHOS ####[facility] Qu[address]ft[address] [place], [place] [address]Dr. Farhat Leal EGFR-NON AF MARTINIQUAIS >60 Normal >=60 [facility] Comment on above: Performed By: #### C CARA, PHOS ####[facility] Tnp[address]wnxo[address] [place], [place] [address]Dr. Farhat Leal Globulin (S) [Mass/Vol] 3.7 g/dL Normal [facility] Comment on above: Performed By: #### C CARA, PHOS ####[facility] Zzrqofbhat[address] [place], [place] [address]Dr. Farhat Leal Glucose [Mass/Vol] 287 mg/dL Critically high 74-106 T [facility] Comment on above: Performed By: #### C CARA, PHOS ####[facility] Q[address] [place], [place] [address]Dr. Farhat Leal Potassium [Moles/Vol] 3.9 mmol/L Normal 3.5-5.1 [facility] Comment on above: Performed By: #### C CARA, PHOS ####[facility] [address] [place], [place] [address]Dr. Farhat Leal Protein [Mass/Vol] 5.8 g/dL Critically low 6.4-8.[address] [facility] Comment on above: Performed By: #### C CARA, PHOS ####[facility] [address] [place], [place] [address]Dr. Farhat Leal Sodium [Moles/Vol] 132 mmol/L Critically low 136-[address] [facility] Comment on above: Performed By: #### C MP, PHOS ####[facility] [address] [id number]. Farhat Leal Urea nitrogen [Mass/Vol] 23.0 mg/dL Critically high 7.0-18.0 [facility] Comment on above: Performed By: #### C HENRI MARROQUIN ####[facility] [address] [id number]. Farhat Leal Urea nitrogen/Creatinine [Mass ratio] 22.3 mg/mg Normal [facility] Comment on above: Performed By: #### C HENRI MARROQUIN ####[facility] [address] [place] [id number]. Farhat Leal FK506 (TACROLIMUS) WHOLE BLO ODon 01-21-2022 Tacrolimus (FK506), Blood 12.2 ng/mL Normal 2.0-20.0 [facility] Comment on above: Result Comment: Trou gh (immediately following transplant) 15.0 . Trough (steady state, 2 weeks or more after transplant): 3.0 - 8.0 . Performed by LC-MS/MS technology. Performed By: #### F K506T ####[facility] [address] [place], [place] [address]Dr. Farhat Leal ACID FAST SMEAR AND CXon Acid Fast Culture Negative Normal [facility] Comment on above: Result Comment: No a abdiel fast bacilli isolated after 6 weeks. Performed By: #### A FB ####[facility] [address] [place], [place] [address]Dr. Farhat Leal Acid Fast Smear Negative Normal [facility] Comment on above: Performed By: #### A FB ####[facility] [address] [place], [place] [address]Dr. Farhat Leal [employer] Specimen Processing Tissue Grinding Normal [facility] Comment on above: Performed By: #### A FB ####[facility] [address] [place], [place] [address]Dr. Farhat Hassan 01-20-2022 CNPN Telephone (DAVISBatool) ALEX ALMONTE ([id number]) 1945 M TRN Date Time Provider Department 01/20/22 [facility]NA OLIVAREZ During your visit today, we recorded the following information about you: Van Olivarez APRN.CNP 01/20/2022 1:14 PM Signed Labs noted from yesterday. Pt is currently residing at [facility], I spoke with the Nurse, [...] by mouth daily with lunch. 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 Comment on above: Performed By: #### C MP ####[facility] [address] [place] [address]Dr. Farhat Leal Albumin/Globulin [Mass ratio] 0.5 {ratio} Normal [facility] Comment on above: Performed By: #### C MP ####[facility] [address] [place] [address]DrSkylar Leal ALP [Catalytic activity/Vol] 78 U/L Normal 46-116 [facility] Comment on above: Performed By: #### C MP ####[facility] [address] [place] [phone]. Farhat Leal ALT [Catalytic activity/Vol] 22 U/L Normal 16-63 [facility] Comment on above: Performed By: #### C MP ####[facility] [address] [place] [address]Dr. Farhat Leal Anion gap [Moles/Vol] 8.0 mmol/L Normal [facility] Comment on above: Performed By: #### C MP ####[facility] [address] [place], [place] [address]Dr. Farhat Leal AST [Catalytic activity/Vol] 92 U/L Critically high 15-37 [facility] Comment on above: Performed By: #### C MP ####[facility] T[address] [place], [place] [address]Dr. Farhat Leal Bilirubin [Mass/Vol] 0.7 mg/dL Normal 0.2-1.0 [facility] Comment on above: Performed By: #### C MP ####[facility] [address]efsmy[address] [place], [place] [address]Dr. Farhat Leal Calcium [Mass/Vol] 7.8 mg/dL Critically low 8.5-10.1 [facility] Comment on above: Performed By: #### C MP ####[facility] Az[address]pz[address] [place], [place] [address]Dr. Farhat Leal Chloride [Moles/Vol] 99 mmol/L Normal 98-107 [facility] Comment on above: Performed By: #### C MP ####[facility] Y[address]qsn[address] [place], [place] [address]Dr. Farhat Leal CO2 [Moles/Vol] 30.9 mmol/L Normal 21.0-32.0 [facility] Comment on above: Performed By: #### C MP ####[facility] C[address]rflh[address] [place], [place] [address]Dr. Farhat Leal Creatinine [Mass/Vol] 0.95 mg/dL Normal 0.70-1.30 [facility] Comment on above: Performed By: #### C MP ####[facility] [address] [place] [phone]. Farhat Leal EGFR-AF MARTINIQUAIS >60 Normal >=60 [facility] Comment on above: Performed By: #### C MP ####[facility] [address]zbfiwd[address] [place], [place] [address]Dr. Farhat Leal EGFR-NON AF MARTINIQUAIS >60 Normal >=60 [facility] Comment on above: Performed By: #### C MP ####[facility] If[address]jasqpff[address] [place], [place] [address]Dr. Farhat Elvis Globulin (S) [Mass/Vol] 3.9 g/dL Normal [facility] Comment on above: Performed By: #### C MP ####[facility] M[address]loiupkkf[address] [place], [place] [address]Dr. Farhat Elvis Glucose [Mass/Vol] 124 mg/dL Critically high 74-106 T [facility] Comment on above: Performed By: #### C MP ####[facility] [address] [place], [place] [address]Dr. Farhat Elvis Potassium [Moles/Vol] 5.9 mmol/L Critically high 3.5-5.1 [facility] Comment on above: Performed By: #### C MP ####[facility] [address]pm[address] [place], [place] [address]Dr. Farhat Elvis Protein [Mass/Vol] 5.8 g/dL Critically low 6.4-8.[address] [facility] Comment on above: Performed By: #### C MP ####[facility] T[address]mbyfa[address] [place], [place] [address]Dr. Farhat Elvis Sodium [Moles/Vol] 132 mmol/L Critically low 136-[address] [facility] Comment on above: Performed By: #### C MP ####[facility] Exdilgxlsi[address] [place], [place] [address]Dr. Farhat Elvis Urea nitrogen [Mass/Vol] 18.0 mg/dL Normal 7.0-18.0 [facility] Comment on above: Performed By: #### C MP ####[facility] Hzghhhnctm[address] [place], [place] [address]Dr. Madelynlorri Elvis Urea nitrogen/Creatinine [Mass ratio] 18.9 mg/mg Normal [facility] Comment on above: Performed By: #### C MP ####[facility] [address] [place] [phone]. Farhat Leal INR (POC)on 01-12-2022 INR Coag (PPP) [Relative time] 2.6 {INR} High 0.8 - 1.2 [facility] Internal Quality Check Acceptable Cl [facility] ACID FAST SMEAR AND CXon Acid Fast Culture Negative Normal [facility] Comment on above: Result Comment: No a abdiel fast bacilli isolated after 6 weeks. Performed By: #### A FB ####[facility] F[address] [place], [place] [address]Dr. Madelynlorri Leal Acid Fast Smear Negative Normal [facility] Comment on above: Performed By: #### A FB ####[facility] Fi[address]ss[address] [place], [place] [address]Dr. Farhat Leal [employer] Specimen Processing Direct Inoculation Normal [facility] Comment on above: Performed By: #### A FB ####[facility] [address] [place] [phone]. Farhat Leal ACID FAST SMEAR AND CXon Acid Fast Culture Negative Normal [facility] Comment on above: Result Comment: No a abdiel fast bacilli isolated after 6 weeks. Performed By: #### A FB ####[facility] C[address]msy[address]xs[address] [place], [place] [address]Dr. Farhat Leal Acid Fast Smear Negative Normal [facility] Comment on above: Performed By: #### A FB ####[facility] [address]cm[address] [place], [place] [address]Dr. Farhat Leal [employer] Specimen Processing Tissue Grinding Normal [facility] Comment on above: Performed By: #### A FB ####[facility] [address]cs[address] [place], [place] [address]Dr. Farhat Leal FUNGAL CULTUREon 01-02-2022 Fungus (Mycology) Culture Final report Normal [facility] Comment on above: Performed By: #### C XFUN ####[facility] [address] [place] [address]Dr. Farhat Leal Fungus Stain Final report Normal [facility] Comment on above: Performed By: #### C XFUN ####[facility] [address]so[address] [place], [place] [address]DrSkylar Leal Result 1 Comment Normal [facility] Comment on above: Result Comment: ANNI/ Calcofluor preparation: no fungus observed. Performed By: #### C XFUN ####[facility] F[address]uerixdd[address] [place], [place] [address]Dr. Farhat Leal Result Comment: No y east or mold isolated after 4 weeks. FK506 (TACROLIMUS) WHOLE BLO ODon 12-31-2021 Tacrolimus (FK506), Blood 7.7 ng/mL Normal 2.0-20.0 [facility] Comment on above: Result Comment: Trou gh (immediately following transplant) 15.0 . Trough (steady state, 2 weeks or more after transplant): 3.0 - 8.0 . Performed by LC-MS/MS technology. Performed By: #### F K506T ####[facility] [address]ax[address] [place], [place] [address]Dr. Farhat Leal HEMOGRAM AND PLATELon 2021 Hematocrit (Bld) [Volume fraction] 27.1 % Critically low 42.0-54.0 [facility] Comment on above: Performed By: #### H H ####[facility] K[address] [place], [place] [address]DrSkylar Leal Hemoglobin (Bld) [Mass/Vol] 8.7 g/dL Critically low 14.0-18.0 [facility] Comment on above: Performed By: #### H H ####[facility] [address] [place], [place] [address]DrSkylar Leal MCH (RBC) [Entitic mass] 30.3 pg Normal 25.9-34.0 [facility] Comment on above: Performed By: #### H H ####[facility] [address]adsot[address] [place], [place] [address]DrSkylar Leal MCHC (RBC) [Mass/Vol] 32.1 g/dL Normal 29.9-35.2 [facility] Comment on above: Performed By: #### H H ####[facility] [address] [place] [address]DrSkylar Joshilorri Elvis MCV (RBC) [Entitic vol] 94.4 fL Critically high 80.0-94.0 [facility] Comment on above: Performed By: #### H H ####[facility] [address] [place] [address]DrSkylar Leal PLT 355 103/ul Normal 150-450 [facility] Comment on above: Performed By: #### H H ####[facility] [address] [place] [phone] Leal RBC 2.87 106/ul Critically low 4.70-6.10 [facility] Comment on above: Performed By: #### H H ####[facility] [address] [place] [address]DrSkylar Leal WBC 6.0 103/ul Normal 4.0-11.0 [facility] Comment on above: Performed By: #### H H ####[facility] [address] [place] [phone] Leal PHOSPHORUSon 12-29-2021 Phosphate [Mass/Vol] 2.5 mg/dL Critically low 2.6-4.7 [facility] Comment on above: Performed By: #### P HOS, CMP ####[facility] [address]rm[address] [place] [phone] Leal PROF 14(COMP METB)on 022 Albumin [Mass/Vol] 1.7 g/dL Critically low 3.4-5.[address] [facility] Comment on above: Performed By: #### P HOS, CMP ####[facility] [address] [place] [address]DrSkylar Leal Albumin/Globulin [Mass ratio] 0.5 {ratio} Normal [facility] Comment on above: Performed By: #### P HOS, CMP ####[facility] [address] [place] [phone]. Farhat Leal ALP [Catalytic activity/Vol] 78 U/L Normal 46-116 [facility] Comment on above: Performed By: #### P HOS, CMP ####[facility] Ibcifzbwzh[address] [place], [place] [address]Dr. Farhat Leal ALT [Catalytic activity/Vol] 12 U/L Critically low 16-63 [facility] Comment on above: Performed By: #### P HOS, CMP ####[facility] Jvkrtpfvtj[address] [place], [place] [address]Dr. Farhat Leal Anion gap [Moles/Vol] 5.1 mmol/L Normal [facility] Comment on above: Performed By: #### P HOS, CMP ####[facility] Mgwgidbskj6138[address] [place], [place] [address]Dr. Farhat Leal AST [Catalytic activity/Vol] 22 U/L Normal 15-37 [facility] Comment on above: Performed By: #### P HOS, CMP ####[facility] Waebmslkfj065[address] [place], [place] [address]Dr. Farhat Leal Bilirubin [Mass/Vol] 0.6 mg/dL Normal 0.2-1.0 [facility] Comment on above: Performed By: #### P HOS, CMP ####[facility] Kdeizhmito[address] [place], [place] [address]Dr. Farhat Leal Calcium [Mass/Vol] 8.1 mg/dL Critically low 8.5-10.[address] [facility] Comment on above: Performed By: #### P HOS, CMP ####[facility] Lisrffvhuv9[address] [place], [place] [address]Dr. Farhat Leal Chloride [Moles/Vol] 100 mmol/L Normal 98-107 [facility] Comment on above: Performed By: #### P HOS, CMP ####[facility] Xwncmkufrl668[address] [place], [place] [address]Dr. Farhat Leal CO2 [Moles/Vol] 34.2 mmol/L Critically high 21.0-32.0 [facility] Comment on above: Performed By: #### P HOS, CMP ####[facility] [address]kwkbp[address] [place] [address]Dr. Farhat Leal Creatinine [Mass/Vol] 0.92 mg/dL Normal 0.70-1.30 [facility] Comment on above: Performed By: #### P HOS, CMP ####[facility] Gshepysmwn9[address] [place], [place] [address]Dr. Farhat Leal EGFR-AF MARTINIQUAIS >60 Normal >=60 [facility] Comment on above: Performed By: #### P HOS, CMP ####[facility] Khugjbochv[address] [place] [address]Dr. Farhat Leal EGFR-NON AF MARTINIQUAIS >60 Normal >=60 [facility] Comment on above: Performed By: #### P HOS, CMP ####[facility] Yxchljiewy25[address] [place], [place] [address]Dr. Farhat Leal Globulin (S) [Mass/Vol] 3.3 g/dL Normal [facility] Comment on above: Performed By: #### P HOS, CMP ####[facility] Bevhviihwn08[address] [place], [place] [address]Dr. Farhat Leal Glucose [Mass/Vol] 116 mg/dL Critically high 74-106 [facility] Comment on above: Performed By: #### P HOS, CMP ####[facility] Jwgbamnwmo7612[address] [place], [place] [address]Dr. Farhat Leal Potassium [Moles/Vol] 3.3 mmol/L Critically low 3.5-5.1 [facility] Comment on above: Performed By: #### P HOS, CMP ####[facility] Smmyeavcrf[address] [place], [place] [address]Dr. Farhat Leal Protein [Mass/Vol] 5.0 g/dL Critically low 6.4-8.[address] [facility] Comment on above: Performed By: #### P HOS, CMP ####[facility] Jbbgdvjfjt[address] [place], [place] [address]Dr. Farhat Leal Sodium [Moles/Vol] 136 mmol/L Normal 136-145 [facility] Comment on above: Performed By: #### P HOS, CMP ####[facility] Ocmikrrkqv8[address] [place], [place] [address]Dr. Farhat Leal Urea nitrogen [Mass/Vol] 14.0 mg/dL Normal 7.0-18.0 [facility] Comment on above: Performed By: #### P HOS, CMP ####[facility] Dpqvsxprwt3539[address] [place], [place] [address]Dr. Farhat Leal Urea nitrogen/Creatinine [Mass ratio] 15.2 mg/mg Normal [facility] Comment on above: Performed By: #### P HOS, CMP ####[facility] Ggybnvjbqs9[address] [place], [place] [address]Dr. Farhat Leal PROTIMEon 12-29-2021 INR Coag (PPP) [Relative time] 1.26 {INR} Normal [facility] Comment on above: Performed By: #### P T ####[facility] Tphkldkywy4[address] [place], [place] [address]Dr. Farhat Leal INR GUIDELINES SEE BELOW Normal [facility] Comment on above: Result Comment: MALINA RED INR: 2.0 - 3.0 CONDITIONS NOT LISTED BELOW 2.5 - 3.5 FOR PROSTHETIC HEART VALVE REPLACEMENT 2.5 - 3.5 RECURRENT THROMBOSIS Performed By: #### P T ####[facility] Zjtoibigwt6[address] [place], [place] [address]Dr. Farhat Leal PT Coag (PPP) [Time] 13.4 s Critically high 9.0-11.6 [facility] Comment on above: Performed By: #### P T ####[facility] Bpirstcuda4[address] [place], [place] [address]Dr. Farhat Leal XR MODIFIED BARIUM SWALLOWon 12-25-2021 XR MODIFIED BARIUM SWALLOW Normal [facility] FUNGAL CULTUREon 12-24-2021 Fungus (Mycology) Culture Final report Normal [facility] Comment on above: Performed By: #### C XFUN ####[facility] Qbqmobhgbv9[address] [place], [place] [address]Dr. Farhat Leal Fungus Stain Final report Normal [facility] Comment on above: Performed By: #### C XFUN ####[facility] Xzuycuysqp[address] [place], [place] [address]Dr. Farhat Leal Result 1 Comment Normal [facility] Comment on above: Result Comment: ANNI/ Calcofluor preparation: no fungus observed. Performed By: #### C XFUN ####[facility] Inwowuomlf06[address] [place], [place] [address]Dr. Farhat Leal Result Comment: No y east or mold isolated after 4 weeks. VANCOMYCIN TROUGHon 12-21-19 VANCOMYCIN TROUGH 14.4 ug/ml Normal 5.0-20.0 [facility] Comment on above: Performed By: #### V ANCT ####[facility] Hyqsxgikor2147[address] [place], [place] [address]Dr. Farhat Leal CBC AUTO DIFFon 12-14-2021 BASO # 0.0 103/ul Normal 0.0-0.1 [facility] Comment on above: Performed By: #### C BC ####[facility] Dsyfnabrep[address] [place], [place] [address]Dr. Farhat Leal Basophils/100 WBC (Bld) 0.2 % Normal 0.2-2.0 [facility] Comment on above: Performed By: #### C BC ####[facility] Rmxuzpooxg[address] [place], [place] [address]Dr. Farhat Leal EO # 0.2 103/ul Normal 0.0-0.7 [facility] Comment on above: Performed By: #### C BC ####[facility] Wzuehppest[address] [place], [place] [address]Dr. Farhat Leal Eosinophils/100 WBC (Bld) 2.1 % Normal 0.9-7.0 [facility] Comment on above: Performed By: #### C BC ####[facility] Kdxkckauhp[address] [place], [place] [address]Dr. Farhat Leal Erythrocyte distribution width (RBC) [Ratio] 18.2 % Critically high 11.0-15.0 [facility] Comment on above: Performed By: #### C BC ####[facility] Agdnpmsmao[address] [place], [place] [address]Dr. Farhat Leal Hematocrit (Bld) [Volume fraction] 25.8 % Critically low 42.0-54.0 [facility] Comment on above: Performed By: #### C BC ####[facility] Ynhejmrkab[address] [place] [address]Dr. Farhat Leal Hemoglobin (Bld) [Mass/Vol] 8.0 g/dL Critically low 14.0-18.0 [facility] Comment on above: Performed By: #### C BC ####[facility] Upptcqfevt26[address] [place] [address]Dr. Farhat Leal IG # 0.08 10e3/ul Critically high 0.00-0.03 [facility] Comment on above: Performed By: #### C BC ####[facility] Eegptdctek[address] [place] [address]Dr. Farhat Leal IG % 0.7 % Critically high 0.0-0.5 [facility] Comment on above: Performed By: #### C BC ####[facility] Jfbentwrsb6078 [place] [address]Dr. Farhat Leal LYMPH # 0.9 103/ul Critically low 1.2-3.8 [facility] Comment on above: Performed By: #### C BC ####[facility] Slifuriuik[address] [place] [address]Dr. Farhat Leal Lymphocytes/100 WBC (Bld) 8.7 % Critically low 20.5-60.0 [facility] Comment on above: Performed By: #### C BC ####[facility] [address]vhoekd4[address] [place] [address]Dr. Farhat Leal MANUAL DIFF REQ NO Normal [facility] Comment on above: Performed By: #### C BC ####[facility] [address]ryaal[address] [place] [address]Dr. Farhat Leal MCH (RBC) [Entitic mass] 30.0 pg Normal 25.9-34.0 [facility] Comment on above: Performed By: #### C BC ####[facility] J[address]juldmemy3[address] [place] [address]Dr. Farhat Leal MCHC (RBC) [Mass/Vol] 31.0 g/dL Normal 29.9-35.2 [facility] Comment on above: Performed By: #### C BC ####[facility] [address]ubw39[address] [place] [id number]. Farhat Leal MCV (RBC) [Entitic vol] 96.6 fL Critically high 80.0-94.0 [facility] Comment on above: Performed By: #### C BC ####[facility] Andquicvcb6644 [place] [address]Dr. Farhat Leal MONO # 0.7 103/ul Normal 0.3-0.8 [facility] Comment on above: Performed By: #### C BC ####[facility] Tovdtkjgdm5074 [place] [id number]. Farhat Elvis Monocytes/100 WBC (Bld) 6.7 % Normal 1.7-12.0 [facility] Comment on above: Performed By: #### C BC ####[facility] Bpmqpguria[address] [place], [place] [address]Dr. Farhat Leal NEUT # 8.8 103/ul Critically high 1.4-6.5 [facility] Comment on above: Performed By: #### C BC ####[facility] Scewpjtzbz3510 [place] [address]Dr. Farhat Elvis Neutrophils/100 WBC (Bld) 81.6 % Critically high 43.0-75.0 [facility] Comment on above: Performed By: #### C BC ####[facility] Zxdbffffuc7822 [place] [address]Dr. Farhat Elvis Platelet mean volume (Bld) [Entitic vol] 10.5 fL Normal 9.5-13.5 [facility] Comment on above: Performed By: #### C BC ####[facility] [address]lfo[address] [place], [place] [address]Dr. Farhat Leal PLT 285 103/ul Normal 150-450 [facility] Comment on above: Performed By: #### C BC ####[facility] Beccnjqozo17[address] [place] [id number]. Farhat Leal RBC 2.67 106/ul Critically low 4.70-6.10 [facility] Comment on above: Performed By: #### C BC ####[facility] Fqgqcmabxo75[address] [place] [address]Dr. Farhat Leal WBC 10.7 103/ul Normal 4.0-11.0 [facility] Comment on above: Performed By: #### C BC ####[facility] Dwewgjgkfe7[address] [place] [address]Dr. Farhat Leal PROF CHEM 8 (BAS METB)on Anion gap [Moles/Vol] 12.4 mmol/L Normal [facility] Comment on above: Performed By: #### B MP ####[facility] Pbxuzuxnbm9197 [place] [address]Dr. Farhat Leal Calcium [Mass/Vol] 7.8 mg/dL Critically low 8.5-10.1 [facility] Comment on above: Performed By: #### B MP ####[facility] Zustpfespe[address] [place], [place] [address]Dr. Farhat Leal Chloride [Moles/Vol] 102 mmol/L Normal 98-107 [facility] Comment on above: Performed By: #### B MP ####[facility] Hivhwxslbi25[address] [place], [place] [address]Dr. Farhat Leal CO2 [Moles/Vol] 28.1 mmol/L Normal 21.0-32.0 [facility] Comment on above: Performed By: #### B MP ####[facility] Gsiqikeknt[address]24[address] [place], [place] [address]DrSkylar Leal Creatinine [Mass/Vol] 1.24 mg/dL Normal 0.70-1.30 [facility] Comment on above: Performed By: #### B MP ####[facility] Erqfqckfkn[address] [place] [address]Dr. Farhat Leal EGFR-AF MARTINIQUAIS >60 Normal >=60 [facility] Comment on above: Performed By: #### B MP ####[facility] Pomvkbvrec[address] [place] [address]Dr. Farhat Leal EGFR-NON AF MARTINIQUAIS 57 mL/min/1.73m2 Critically low >=60 [facility] Comment on above: Performed By: #### B MP ####[facility] Qmrbakoynf1143 [place] [address]Dr. Farhat Leal Glucose [Mass/Vol] 296 mg/dL Critically high 74-106 [facility] Comment on above: Performed By: #### B MP ####[facility] Gbyvlabfua0119 [place] [address]Dr. Farhat Leal Potassium [Moles/Vol] 3.5 mmol/L Normal 3.5-5.1 [facility] Comment on above: Performed By: #### B MP ####[facility] Wdtmypgqet60[address] [place], [place] [address]Dr. Farhat Leal Sodium [Moles/Vol] 139 mmol/L Normal 136-145 [facility] Comment on above: Performed By: #### B MP ####[facility] Lmjakcdwej34[address] [place], [place] [address]Dr. Farhat Leal Urea nitrogen [Mass/Vol] 27.0 mg/dL Critically high 7.0-18.0 [facility] Comment on above: Performed By: #### B MP ####[facility] Xrfrboandy040[address] [place], [place] [address]Dr. Farhat Leal Urea nitrogen/Creatinine [Mass ratio] 21.8 mg/mg Normal [facility] Comment on above: Performed By: #### B MP ####[facility] Ibldollxqk6[address] [place], [place] [address]Dr. Farhat Leal PROTIMEon 12-14-2021 INR Coag (PPP) [Relative time] 3.36 {INR} Normal [facility] Comment on above: Performed By: #### P T ####[facility] Stqnzzbuqc[address] [place], [place] [address]Dr. Farhat Leal INR GUIDELINES SEE BELOW Normal [facility] Comment on above: Result Comment: MALINA RED INR: 2.0 - 3.0 CONDITIONS NOT LISTED BELOW 2.5 - 3.5 FOR PROSTHETIC HEART VALVE REPLACEMENT 2.5 - 3.5 RECURRENT THROMBOSIS Performed By: #### P T ####[facility] [address]yssoqcru5[address] [place], [place] [address]Fk. Farhat Elvis PT Coag (PPP) [Time] 33.5 s Critically high 9.0-11.6 [facility] Comment on above: Performed By: #### P T ####[facility] Dwnuwkipqt3087 [place], [place] [address]Jc. Farhat Elvis XR CHEST 1 Von 12-14-2021 XR CHEST 1 V Normal [facility] No Panel Informationon 12-01 BLANK _ [facility] Implant Date 04/22/2012 [facility] CHECKon AMS Duration (ms) 5 of 8 [facility] AMS Fallback Rate (bpm) DDIR [facility] [...] [facility] AV Delay Paced (ms) 300 ms [facility] AV Delay Sensed (ms) 300 ms [facility] Jaciel LV Pacing Polarity Unknown [facility] [place] Lower Rate (bpm) 60 {beats}/min [facility] Max Sensor Rate (bmp) 130 {beats}/min [facility] Model [id number] Monika cortes [facility] Model [id number] [facility] Model [id number] [facility] Pacemaker Dependent? NO [facility] PM-Device Mfg BIO [facility] PM-PMT Intervention ON [facility] PM-PVC Intervention ON [facility] PM-Rate Modulation Acceleration Reaction 4 s [facility] PM-Rate Modulation Deceleration 0.5 m [facility] PM-Rate Modulation [place] 23 [facility] PM-Rate Modulation Threshold Medium [facility] RA Bipolar Impedance ohms 448 ohm [facility] Rhythm AF with controlled ventricular rate. [facility] RV Bipolar Impedance ohms 390 ohm [facility] Serial Number [id number] [facility] Serial Number [id number] [facility] Serial Number [id number] [facility] [...] BNPon 11-28-2021 Natriuretic peptide B (Bld) [Mass/Vol] 56910.0 pg/mL Critically high <=1,800.0 [facility] Comment on above: Performed By: #### C MP, BNP, CRP ####[facility] Slgtbeuxse54[address] [place], [place] [address]Dr. Farhat Leal CBC AUTO DIFFon 11-28-2021 BASO # 0.0 103/ul Normal 0.0-0.1 [facility] Comment on above: Performed By: #### C BC ####[facility] Wnwqtdleyd3146 [place] [address]Dr. Farhat Leal Basophils/100 WBC (Bld) 0.3 % Normal 0.2-2.0 [facility] Comment on above: Performed By: #### C BC ####[facility] Alzbpohhza16[address] [place] [address]Dr. Farhat Leal EO # 0.1 103/ul Normal 0.0-0.7 [facility] Comment on above: Performed By: #### C BC ####[facility] Hogwtownuh[address] [place] [id number]. Farhat Leal Eosinophils/100 WBC (Bld) 1.0 % Normal 0.9-7.0 [facility] Comment on above: Performed By: #### C BC ####[facility] Pktgknlxfg6392 [place] [phone]. Farhat Leal Erythrocyte distribution width (RBC) [Ratio] 14.0 % Normal 11.0-15.0 [facility] Comment on above: Performed By: #### C BC ####[facility] F[address]nbgrtkff[address] [place], [place] [address]Dr. Faraht Leal Hematocrit (Bld) [Volume fraction] 27.6 % Critically low 42.0-54.0 [facility] Comment on above: Performed By: #### C BC ####[facility] Akymrdopzc[address] [place], [place] [address]Dr. Farhat Leal Hemoglobin (Bld) [Mass/Vol] 9.0 g/dL Critically low 14.0-18.0 [facility] Comment on above: Performed By: #### C BC ####[facility] Knbcnyaujh[address] [place], [place] [address]Dr. Farhat Leal IG # 0.12 10e3/ul Critically high 0.00-0.03 [facility] Comment on above: Performed By: #### C BC ####[facility] Sdrcczuiry9166[address] [place], [place] [address]Dr. Farhat Leal IG % 1.0 % Critically high 0.0-0.5 [facility] Comment on above: Performed By: #### C BC ####[facility] Zmpicquklx05[address] [place], [place] [address]Dr. Farhat Leal LYMPH # 1.2 103/ul Normal 1.2-3.8 [facility] Comment on above: Performed By: #### C BC ####[facility] Wymobewhfj[address] [place], [place] [address]Dr. Farhat Leal Lymphocytes/100 WBC (Bld) 9.9 % Critically low 20.5-60.0 [facility] Comment on above: Performed By: #### C BC ####[facility] Lkacqfhtrw4009 [place] [id number]. Farhat Leal MANUAL DIFF REQ NO Normal [facility] Comment on above: Performed By: #### C BC ####[facility] Tkfhiqaafh9786 [place] [id number]. Farhat Leal MCH (RBC) [Entitic mass] 30.0 pg Normal 25.9-34.0 [facility] Comment on above: Performed By: #### C BC ####[facility] Carijcgmmu9600 [place] [phone]. Farhat Leal MCHC (RBC) [Mass/Vol] 32.6 g/dL Normal 29.9-35.2 [facility] Comment on above: Performed By: #### C BC ####[facility] Ngzqypgtwb[address] [place], [place] [address]Dr. Farhat Leal MCV (RBC) [Entitic vol] 92.0 fL Normal 80.0-94.0 [facility] Comment on above: Performed By: #### C BC ####[facility] Iiejskoret[address] [place], [place] [address]Dr. Farhat Leal MONO # 1.1 103/ul Critically high 0.3-0.8 [facility] Comment on above: Performed By: #### C BC ####[facility] Esixxvfvbk[address] [place], [place] [address]Dr. Farhat Leal Monocytes/100 WBC (Bld) 9.3 % Normal 1.7-12.0 [facility] Comment on above: Performed By: #### C BC ####[facility] Jptwofmcle[address] [place], [place] [address]Dr. Farhat Leal NEUT # 9.3 103/ul Critically high 1.4-6.5 [facility] Comment on above: Performed By: #### C BC ####[facility] Kx[address]uxywaxf[address] [place], [place] [address]Dr. Farhat Leal Neutrophils/100 WBC (Bld) 78.5 % Critically high 43.0-75.0 [facility] Comment on above: Performed By: #### C BC ####[facility] Olpgetimul1833 [place], [place] [address]Wq. Farhat Leal Platelet mean volume (Bld) [Entitic vol] 9.6 fL Normal 9.5-13.5 [facility] Comment on above: Performed By: #### C BC ####[facility] Xbtupifipm1487 [place] [id number]. Farhat Leal PLT 357 103/ul Normal 150-450 [facility] Comment on above: Performed By: #### C BC ####[facility] Ovaubioezo6477 [place], [place] [address]Ng. Madelynlorri Elvis RBC 3.00 106/ul Critically low 4.70-6.10 [facility] Comment on above: Performed By: #### C BC ####[facility] Oshgrwpdqp3369 [place] [phone]. Madelynlorri Elvis WBC 11.8 103/ul Critically high 4.0-11.0 [facility] Comment on above: Performed By: #### C BC ####[facility] Utaoqtquls5468 [place], [place] [address]Co. Farhat Elvis CRPon 11-28-2021 CRP 20.9 mg/dL Critically high <=1.0 [facility] Comment on above: Performed By: #### C MP, BNP, CRP ####[facility] Ujnlefoldm[address] [place] [phone]. Madelynlorri Elvis CULTURE OTHERon 11-28-2021 CULTURE OTHER Normal [facility] Comment on above: Performed By: #### O THCX ####[facility] Ehgkfppdzk2038 [place], [place] [address]Aw. Frahat Leal CULTURE OTHER Normal [facility] Comment on above: Performed By: #### O THCX ####[facility] Bgeblwloeo4710 [place] [id number] Leal PROF 14(COMP METB)on 022 Albumin [Mass/Vol] 1.4 g/dL Critically low 3.4-5.0 [facility] Comment on above: Performed By: #### C MP, BNP, CRP ####[facility] Kylwhrfvcn[address] [place] [address]Dr. Farhat Leal Albumin/Globulin [Mass ratio] 0.4 {ratio} Normal [facility] Comment on above: Performed By: #### C MP, BNP, CRP ####[facility] Mxdeghuvxx6617 [place] [address]Dr. Farhat Leal ALP [Catalytic activity/Vol] 82 U/L Normal 46-116 [facility] Comment on above: Performed By: #### C MP, BNP, CRP ####[facility] Sfeelcewsk6045 [place] [address]Dr. Farhat Leal ALT [Catalytic activity/Vol] 20 U/L Normal 16-63 [facility] Comment on above: Performed By: #### C MP, BNP, CRP ####[facility] B[address]xoxmcsgx8[address] [place], [place] [address]Dr. Farhat Leal Anion gap [Moles/Vol] 13.0 mmol/L Normal [facility] Comment on above: Performed By: #### C MP, BNP, CRP ####[facility] Vmrpxcuwwh90[address] [place], [place] [address]Dr. Farhat Leal AST [Catalytic activity/Vol] 33 U/L Normal 15-37 [facility] Comment on above: Performed By: #### C MP, BNP, CRP ####[facility] Berndricbx8[address] [place], [place] [address]Dr. Farhat Leal Bilirubin [Mass/Vol] 0.7 mg/dL Normal 0.2-1.0 [facility] Comment on above: Performed By: #### C MP, BNP, CRP ####[facility] Tclmslikza30[address] [place], [place] [address]Dr. Farhat Leal Calcium [Mass/Vol] 8.4 mg/dL Critically low 8.5-10.1 [facility] Comment on above: Performed By: #### C MP, BNP, CRP ####[facility] Fvvhyhllgc[address] [place], [place] [address]Dr. Farhat Leal Chloride [Moles/Vol] 100 mmol/L Normal 98-107 [facility] Comment on above: Performed By: #### C MP, BNP, CRP ####[facility] [address]xeaptxrc[address] [place] [id number]. Farhat Leal CO2 [Moles/Vol] 23.7 mmol/L Normal 21.0-32.0 [facility] Comment on above: Performed By: #### C MP, BNP, CRP ####[facility] [address]ch[address] [place] [address]Dr. Farhat Leal Creatinine [Mass/Vol] 1.70 mg/dL Critically high 0.70-1.30 [facility] Comment on above: Performed By: #### C MP, BNP, CRP ####[facility] Rxqvkktsrh[address] [place], [place] [address]Dr. Farhat Leal EGFR-AF MARTINIQUAIS 48 mL/min/1.73m2 Critically low >=60 [facility] Comment on above: Performed By: #### C MP, BNP, CRP ####[facility] Ghucrmrges[address] [place], [place] [address]Dr. Farhat Leal EGFR-NON AF MARTINIQUAIS 39 mL/min/1.73m2 Critically low >=60 [facility] Comment on above: Performed By: #### C MP, BNP, CRP ####[facility] Erlghgpstz[address] [place] [address]Dr. Farhat Leal Globulin (S) [Mass/Vol] 3.6 g/dL Normal [facility] Comment on above: Performed By: #### C MP, BNP, CRP ####[facility] Wtxrfmclvv4[address] [place] [address]Dr. Farhat Leal Glucose [Mass/Vol] 232 mg/dL Critically high 74-106 [facility] Comment on above: Performed By: #### C MP, BNP, CRP ####[facility] Yjolpqktou18[address] [place] [address]Dr. Farhat Leal Potassium [Moles/Vol] 3.7 mmol/L Normal 3.5-5.1 [facility] Comment on above: Performed By: #### C MP, BNP, CRP ####[facility] Agzuvkrbal[address] [place] [address]Dr. Farhat Leal Protein [Mass/Vol] 5.0 g/dL Critically low 6.4-8.[address] [facility] Comment on above: Performed By: #### C MP, BNP, CRP ####[facility] Xubuziijvz[address] [place] [address]Dr. Farhat Leal Sodium [Moles/Vol] 133 mmol/L Critically low 136-[address] [facility] Comment on above: Performed By: #### C MP, BNP, CRP ####[facility] Adribttrrz8[address] [place] [address]Dr. Farhat Leal Urea nitrogen [Mass/Vol] 52.0 mg/dL Critically high 7.0-18.0 [facility] Comment on above: Performed By: #### C MP, BNP, CRP ####[facility] Ankxjlrutf[address] [place], [place] [address]Dr. Farhat Leal Urea nitrogen/Creatinine [Mass ratio] 30.6 mg/mg Normal [facility] Comment on above: Performed By: #### C MP, BNP, CRP ####[facility] Qnhppmwkyg[address] [place], [place] [address]Dr. Farhat Leal PROTIMEon 11-28-2021 INR Coag (PPP) [Relative time] 1.29 {INR} Normal [facility] Comment on above: Performed By: #### P T ####[facility] Jorzulzklv[address] [place], [place] [address]Dr. Farhat Leal INR GUIDELINES SEE BELOW Normal [facility] Comment on above: Result Comment: MALINA RED INR: 2.0 - 3.0 CONDITIONS NOT LISTED BELOW 2.5 - 3.5 FOR PROSTHETIC HEART VALVE REPLACEMENT 2.5 - 3.5 RECURRENT THROMBOSIS Performed By: #### P T ####[facility] Xydailoobg[address] [place], [place] [address]Dr. Farhat Leal PT Coag (PPP) [Time] 13.7 s Critically high 9.0-11.6 [facility] Comment on above: Performed By: #### P T ####[facility] Tvyuxkjwwh2453 [place] [address]Dr. Farhat Leal SED RATE WESTERGRENon 2021 SED RATE 77 mm/hr Critically high <=20 [facility] Comment on above: Performed By: #### S EDR ####[facility] Ctedollhnu[address] [place], [place] [address]Dr. Farhat Leal XR CHEST 2 Von 11-28-2021 XR CHEST 2 V Normal [facility] BNPon 11-27-2021 Natriuretic peptide B (Bld) [Mass/Vol] 52910.0 pg/mL Critically high <=1,800.0 [facility] Comment on above: Performed By: #### B HIGHWAY MAINTAINER, CMP, CRP ####[facility] Ygyftogbzx[address] [place], [place] [address]Dr. Farhat Leal CBC AUTO DIFFon 11-27-2021 BASO # 0.0 103/ul Normal 0.0-0.1 [facility] Comment on above: Performed By: #### C BC ####[facility] Cafhxoawou[address] [place], [place] [address]Dr. Farhat Leal Basophils/100 WBC (Bld) 0.2 % Normal 0.2-2.0 [facility] Comment on above: Performed By: #### C BC ####[facility] Ljfotiayiu[address] [place], [place] [address]Dr. Farhat Leal EO # 0.2 103/ul Normal 0.0-0.7 [facility] Comment on above: Performed By: #### C BC ####[facility] Orkjpctuhx024[address] [place], [place] [address]Dr. Farhat Leal Eosinophils/100 WBC (Bld) 1.9 % Normal 0.9-7.0 [facility] Comment on above: Performed By: #### C BC ####[facility] Uiwjktbxap[address] [place], [place] [address]Dr. Farhat Leal Erythrocyte distribution width (RBC) [Ratio] 13.9 % Normal 11.0-15.0 [facility] Comment on above: Performed By: #### C BC ####[facility] Ihrydnswla3817 [place] [address]Dr. Farhat Leal Hematocrit (Bld) [Volume fraction] 28.7 % Critically low 42.0-54.0 [facility] Comment on above: Performed By: #### C BC ####[facility] Awckofkghm3212 [place] [address]Dr. Farhat Leal Hemoglobin (Bld) [Mass/Vol] 9.3 g/dL Critically low 14.0-18.0 [facility] Comment on above: Performed By: #### C BC ####[facility] Liapoktwqa9349 [place] [address]Dr. Farhat Leal IG # 0.14 10e3/ul Critically high 0.00-0.03 [facility] Comment on above: Performed By: #### C BC ####[facility] Gjntcicmrl97[address] [place], [place] [address]Dr. Farhat Leal IG % 1.2 % Critically high 0.0-0.5 [facility] Comment on above: Performed By: #### C BC ####[facility] Hgwjkrplji5[address] [place], [place] [address]Dr. Farhat Leal LYMPH # 1.1 103/ul Critically low 1.2-3.8 [facility] Comment on above: Performed By: #### C BC ####[facility] Hwztpadjkf1721 [place] [address]Dr. Farhat Leal Lymphocytes/100 WBC (Bld) 9.4 % Critically low 20.5-60.0 [facility] Comment on above: Performed By: #### C BC ####[facility] Ubrtsyfpmo6082 [place] [address]Dr. Farhat Leal MANUAL DIFF REQ NO Normal [facility] Comment on above: Performed By: #### C BC ####[facility] Isivrumpwx[address] [place], [place] [address]Dr. Farhat Leal MCH (RBC) [Entitic mass] 29.7 pg Normal 25.9-34.0 [facility] Comment on above: Performed By: #### C BC ####[facility] Pbeyxswwhx5[address] [place] [id number]. Farhat Leal MCHC (RBC) [Mass/Vol] 32.4 g/dL Normal 29.9-35.2 [facility] Comment on above: Performed By: #### C BC ####[facility] Uaytamypge0423 [place] [id number]. Farhat Leal MCV (RBC) [Entitic vol] 91.7 fL Normal 80.0-94.0 [facility] Comment on above: Performed By: #### C BC ####[facility] Zxqvxujtqx[address] [place], [place] [address]Dr. Farhat Leal MONO # 1.1 103/ul Critically high 0.3-0.8 [facility] Comment on above: Performed By: #### C BC ####[facility] Uvglzbgqoh[address] [place], [place] [address]Dr. Farhat Leal Monocytes/100 WBC (Bld) 9.7 % Normal 1.7-12.0 [facility] Comment on above: Performed By: #### C BC ####[facility] Mqmptia[address] [place], [place] [address]Dr. Farhat Leal NEUT # 9.2 103/ul Critically high 1.4-6.5 [facility] Comment on above: Performed By: #### C BC ####[facility] Sjakkajspg[address] [place], [place] [address]Dr. Farhat Leal Neutrophils/100 WBC (Bld) 77.6 % Critically high 43.0-75.0 [facility] Comment on above: Performed By: #### C BC ####[facility] Hrandlqrme6074 [place] [id number]. Farhat Leal Platelet mean volume (Bld) [Entitic vol] 9.5 fL Normal 9.5-13.5 [facility] Comment on above: Performed By: #### C BC ####[facility] Ch[address]fhtw[address] [place], [place] [address]Dr. Farhat Leal PLT 375 103/ul Normal 150-450 [facility] Comment on above: Performed By: #### C BC ####[facility] Pixgyrcthh9491 [place], [place] [address]Lb. Farhat Leal RBC 3.13 106/ul Critically low 4.70-6.10 [facility] Comment on above: Performed By: #### C BC ####[facility] Dmgxledbhh5244 [place], [place] [address]Em. Farhat Leal WBC 11.8 103/ul Critically high 4.0-11.0 [facility] Comment on above: Performed By: #### C BC ####[facility] Rqyfmeqxob3140 [place] [id number]. Farhat Leal CRPon 11-27-2021 CRP 24.5 mg/dL Critically high <=1.0 [facility] Comment on above: Performed By: #### B HIGHWAY MAINTAINER, CMP, CRP ####[facility] Ztdaaqulit5222 [place] [id number]. Farhat Leal CULTURE OTHERon 11-27-2021 CULTURE OTHER Normal [facility] Comment on above: Performed By: #### O THCX ####[facility] Bbxpacwkuv9084 [place] [phone]. Farhat Leal CULTURE OTHER Normal [facility] Comment on above: Performed By: #### O THCX ####[facility] Mmmmdiepfy7660 [place] [id number]. Farhat Leal CULTURE WOUNDon 11-27-2021 CULTURE WOUND Normal [facility] Comment on above: Performed By: #### W OUNDCX ####[facility] Ajnreqzqqd7891 [place] [phone]. Farhat Leal POINT OF CARE GLUCOSEon 11-15 Glucose [Mass/Vol] 147 mg/dL Critically high 74-106 [facility] Comment on above: Performed By: #### P OCGLUC ####[facility] Pquetkzehi3018 [place] [phone]. Farhat Leal PROF 14(COMP METB)on 022 Albumin [Mass/Vol] 1.4 g/dL Critically low 3.4-5.0 [facility] Comment on above: Performed By: #### B HIGHWAY MAINTAINER, CMP, CRP ####[facility] Mreqdocsnm3194 [place] [phone]. Farhat Leal Albumin/Globulin [Mass ratio] 0.4 {ratio} Normal [facility] Comment on above: Performed By: #### B HIGHWAY MAINTAINER, CMP, CRP ####[facility] Jcvdyksvzo2943 [place] [address]Dr. Farhat Leal ALP [Catalytic activity/Vol] 82 U/L Normal 46-116 [facility] Comment on above: Performed By: #### B HIGHWAY MAINTAINER, CMP, CRP ####[facility] Rmmuamgnqa5668 [place] [address]Dr. Farhat Leal ALT [Catalytic activity/Vol] 22 U/L Normal 16-63 [facility] Comment on above: Performed By: #### B HIGHWAY MAINTAINER, CMP, CRP ####[facility] Omkcmfcliw4996 [place] [address]Dr. Farhat Leal Anion gap [Moles/Vol] 14.2 mmol/L Normal [facility] Comment on above: Performed By: #### B HIGHW[address] MAINTAINER, CMP, CRP ####[facility] Sdqadppqtw7653 [place] [address]Dr. Farhat Leal AST [Catalytic activity/Vol] 35 U/L Normal 15-37 [facility] Comment on above: Performed By: #### B HIGHWAY MAINTAINER, CMP, CRP ####[facility] Oiqzxxctzh6881 [place] [address]Dr. Farhat Leal Bilirubin [Mass/Vol] 0.7 mg/dL Normal 0.2-1.0 [facility] Comment on above: Performed By: #### B HIGHW[address] MAINTAINER, CMP, CRP ####[facility] Ebtuswzhxl8694 [place] [address]Dr. Farhat Leal Calcium [Mass/Vol] 8.2 mg/dL Critically low 8.5-10.1 [facility] Comment on above: Performed By: #### B HIGHW[address] MAINTAINER, CMP, CRP ####[facility] Qllyoextwq0993 [place] [address]Dr. Farhat Leal Chloride [Moles/Vol] 99 mmol/L Normal 98-107 [facility] Comment on above: Performed By: #### B HIGHW[address] MAINTAINER, CMP, CRP ####[facility] Bvbsprpnwm4615 [place] [address]Dr. Farhat Leal CO2 [Moles/Vol] 22.6 mmol/L Normal 21.0-32.0 [facility] Comment on above: Performed By: #### B HIGHW[address] MAINTAINER, CMP, CRP ####[facility] Yrfufzqcwu[address] [place], [place] [address]Dr. Farhat Leal Creatinine [Mass/Vol] 1.73 mg/dL Critically high 0.70-1.30 [facility] Comment on above: Performed By: #### B HIGHWAY MAINTAINER, CMP, CRP ####[facility] Znvlvemnts34[address] [place], [place] [address]Dr. Madelynlorri Elvis EGFR-AF MARTINIQUAIS 47 mL/min/1.73m2 Critically low >=60 [facility] Comment on above: Performed By: #### B HIGHWAY MAINTAINER, CMP, CRP ####[facility] Ankrpgegkc75[address] [place], [place] [address]Dr. Farhat Leal EGFR-NON AF MARTINIQUAIS 38 mL/min/1.73m2 Critically low >=60 [facility] Comment on above: Performed By: #### B HIGHW[address] MAINTAINER, CMP, CRP ####[facility] Aadpjwpccd[address] [place], [place] [address]Dr. Madelynlorri Leal Globulin (S) [Mass/Vol] 3.7 g/dL Normal [facility] Comment on above: Performed By: #### B HIGHWAY MAINTAINER, CMP, CRP ####[facility] Qyjokvpofu6559 [place] [address]Dr. Farhat Leal Glucose [Mass/Vol] 220 mg/dL Critically high 74-106 T [facility] Comment on above: Performed By: #### B HIGHW[address] MAINTAINER, CMP, CRP ####[facility] Vunndbhetj7321 [place] [address]Dr. Farhat Leal Potassium [Moles/Vol] 3.8 mmol/L Normal 3.5-5.1 [facility] Comment on above: Performed By: #### B HIGHWAY MAINTAINER, CMP, CRP ####[facility] Nhvivrdbmp3110 [place] [phone]. Farhat Leal Protein [Mass/Vol] 5.1 g/dL Critically low 6.4-8.[address] [facility] Comment on above: Performed By: #### B HIGHWAY MAINTAINER, CMP, CRP ####[facility] Nzorgsttks1480 [place] [address]Dr. Farhat Leal Sodium [Moles/Vol] 132 mmol/L Critically low 136-[address] [facility] Comment on above: Performed By: #### B HIGHW[address] MAINTAINER, CMP, CRP ####[facility] Fgsoefucnz3825 [place] [address]Dr. Farhat Leal Urea nitrogen [Mass/Vol] 49.0 mg/dL Critically high 7.0-18.0 [facility] Comment on above: Performed By: #### B HIGHWAY MAINTAINER, CMP, CRP ####[facility] Cixmczxgad1928 [place] [address]Dr. Farhat Leal Urea nitrogen/Creatinine [Mass ratio] 28.3 mg/mg Normal [facility] Comment on above: Performed By: #### B HIGHW[address] MAINTAINER, CMP, CRP ####[facility] Vkxrgksvle4411 [place] [address]Dr. Farhat Leal PROTIMEon 11-27-2021 INR Coag (PPP) [Relative time] 1.25 {INR} Normal [facility] Comment on above: Performed By: #### P T ####[facility] Xvamdxihba8306 [place] [address]Dr. Farhat Leal INR GUIDELINES SEE BELOW Normal [facility] Comment on above: Result Comment: MALINA RED INR: 2.0 - 3.0 CONDITIONS NOT LISTED BELOW 2.5 - 3.5 FOR PROSTHETIC HEART VALVE REPLACEMENT 2.5 - 3.5 RECURRENT THROMBOSIS Performed By: #### P T ####[facility] S[address]kjuyysf[address] [place], [place] [address]Dr. Farhat Leal PT Coag (PPP) [Time] 13.3 s Critically high 9.0-11.6 [facility] Comment on above: Performed By: #### P T ####[facility] Rtsyuvwieb0010 [place] [phone]. Farhat Leal SED RATE WESTERGRENon 2021 SED RATE 60 mm/hr Critically high <=20 [facility] Comment on above: Performed By: #### S EDR ####[facility] Ukuizzyzom83[address] [place], [place] [address]Dr. Farhat Leal VANCOMYCIN TROUGHon 11-28-19 VANCOMYCIN TROUGH 21.2 ug/ml Critically high 5.0-20.0 [facility] Comment on above: Performed By: #### V ANCT ####[facility] Ghcxerzrbe3127[address] [place], [place] [address]Dr. Farhat Leal XR CHEST 1 Von 11-27-2021 XR CHEST 1 V Normal [facility] BNPon 11-26-2021 Natriuretic peptide B (Bld) [Mass/Vol] 27572.0 pg/mL Critically high <=1,800.0 [facility] Comment on above: Performed By: #### B HIGHWAY MAINTAINER, CRP, CMP ####[facility] Ebveekpveh8[address] [place], [place] [address]Dr. Farhat Leal CBC AUTO DIFFon 11-26-2021 BASO # 0.0 103/ul Normal 0.0-0.1 [facility] Comment on above: Performed By: #### C BC ####[facility] Pbuefkxgnk8[address] [place], [place] [address]Dr. Farhat Elvis Basophils/100 WBC (Bld) 0.2 % Normal 0.2-2.0 [facility] Comment on above: Performed By: #### C BC ####[facility] Ybktwlbmhf[address] [place], [place] [address]Dr. Farhat Leal EO # 0.0 103/ul Normal 0.0-0.7 [facility] Comment on above: Performed By: #### C BC ####[facility] Ilutkigdiu65[address] [place], [place] [address]Dr. Farhat Elvis Eosinophils/100 WBC (Bld) 0.3 % Critically low 0.9-7.0 [facility] Comment on above: Performed By: #### C BC ####[facility] Dsdidnklas7472 [place] [address]Dr. Farhat Leal Erythrocyte distribution width (RBC) [Ratio] 13.9 % Normal 11.0-15.0 [facility] Comment on above: Performed By: #### C BC ####[facility] Jgudygezrr6841 [place] [address]Dr. Farhat Leal Hematocrit (Bld) [Volume fraction] 27.3 % Critically low 42.0-54.0 [facility] Comment on above: Performed By: #### C BC ####[facility] Kxisqudkdw3718 [place] [address]Dr. Farhat Leal Hemoglobin (Bld) [Mass/Vol] 8.8 g/dL Critically low 14.0-18.0 [facility] Comment on above: Performed By: #### C BC ####[facility] Jeawymcany[address] [place], [place] [address]Dr. Farhat Leal IG # 0.17 10e3/ul Critically high 0.00-0.03 [facility] Comment on above: Performed By: #### C BC ####[facility] Wkhdzqavxk[address] [place], [place] [address]Dr. Farhat Leal IG % 1.2 % Critically high 0.0-0.5 [facility] Comment on above: Performed By: #### C BC ####[facility] Tfsxmqeksa4664[address] [place], [place] [address]Dr. Farhat Leal LYMPH # 0.7 103/ul Critically low 1.2-3.8 [facility] Comment on above: Performed By: #### C BC ####[facility] Mpsyvyptdx98[address] [place], [place] [address]Dr. Farhat Leal Lymphocytes/100 WBC (Bld) 4.8 % Critically low 20.5-60.0 [facility] Comment on above: Performed By: #### C BC ####[facility] Nraihjucei[address] [place], [place] [address]Dr. Farhat Leal MANUAL DIFF REQ NO Normal [facility] Comment on above: Performed By: #### C BC ####[facility] Konixrrmvl5593 [place] [phone]. Farhat Elvis MCH (RBC) [Entitic mass] 29.9 pg Normal 25.9-34.0 [facility] Comment on above: Performed By: #### C BC ####[facility] Aqwmrfqvrq6294 [place] [phone]. Farhat Elvis MCHC (RBC) [Mass/Vol] 32.2 g/dL Normal 29.9-35.2 [facility] Comment on above: Performed By: #### C BC ####[facility] Stexbcjbsf1214 [place] [phone]. Farhat Elvis MCV (RBC) [Entitic vol] 92.9 fL Normal 80.0-94.0 [facility] Comment on above: Performed By: #### C BC ####[facility] Fhbkpebmoj1090 [place] [address]Dr. Farhat Leal MONO # 1.3 103/ul Critically high 0.3-0.8 [facility] Comment on above: Performed By: #### C BC ####[facility] Jofprsnyfg4966 [place] [address]Dr. Farhat Leal Monocytes/100 WBC (Bld) 9.6 % Normal 1.7-12.0 [facility] Comment on above: Performed By: #### C BC ####[facility] Ttlgnsqtfk44[address] [place], [place] [address]Dr. Madelynlorri Leal NEUT # 11.4 103/ul Critically high 1.4-6.5 [facility] Comment on above: Performed By: #### C BC ####[facility] Uzmilrtfsp9610 [place] [phone]. Farhat Leal Neutrophils/100 WBC (Bld) 83.9 % Critically high 43.0-75.0 [facility] Comment on above: Performed By: #### C BC ####[facility] Fttubplxat2932 [place] [phone]. Farhat Leal Platelet mean volume (Bld) [Entitic vol] 9.6 fL Normal 9.5-13.5 [facility] Comment on above: Performed By: #### C BC ####[facility] Noqnhhxusg8086 [place] [address]Dr. Madelynlorri Leal PLT 395 103/ul Normal 150-450 [facility] Comment on above: Performed By: #### C BC ####[facility] Xmzoxxzqdq2148 [place] [phone]. Farhat Leal RBC 2.94 106/ul Critically low 4.70-6.10 [facility] Comment on above: Performed By: #### C BC ####[facility] Ezkqwuyehi1723 [place] [address]Dr. Madelynlorri Elvis WBC 13.6 103/ul Critically high 4.0-11.0 [facility] Comment on above: Performed By: #### C BC ####[facility] Qyedyuhgqi5302 [place] [address]Dr. Farhat Leal CRPon 11-26-2021 CRP [Mass/Vol] mg/L Critically high <=1.0 [facility] Comment on above: Performed By: #### B HIGHWAY MAINTAINER, CRP, CMP ####[facility] Pbzntcdyjx72[address] [place], [place] [address]Dr. Farhat Leal PROF 14(COMP METB)on 022 Albumin [Mass/Vol] 1.5 g/dL Critically low 3.4-5.0 [facility] Comment on above: Performed By: #### B HIGHWAY MAINTAINER, CRP, CMP ####[facility] Gewpzlmiqk2732 [place] [address]Dr. Farhat Leal Albumin/Globulin [Mass ratio] 0.4 {ratio} Normal [facility] Comment on above: Performed By: #### B HIGHWAY MAINTAINER, CRP, CMP ####[facility] Wywqbqescg3360 [place] [address]Dr. Farhat Leal ALP [Catalytic activity/Vol] 88 U/L Normal 46-116 [facility] Comment on above: Performed By: #### B HIGHW[address] MAINTAINER, CRP, CMP ####[facility] Hyzpokxvmt2548 [place] [address]Dr. Farhat Leal ALT [Catalytic activity/Vol] 29 U/L Normal 16-63 [facility] Comment on above: Performed By: #### B HIGHW[address] MAINTAINER, CRP, CMP ####[facility] Fpqqgtzlam8337 [place] [address]Dr. Farhat Leal Anion gap [Moles/Vol] 13.3 mmol/L Normal Th [facility] Comment on above: Performed By: #### B HIGHW[address] MAINTAINER, CRP, CMP ####[facility] Upaowfmril7384[address] [place], [place] [address]Dr. Farhat Leal AST [Catalytic activity/Vol] 32 U/L Normal 15-37 [facility] Comment on above: Performed By: #### B HIGHW[address] MAINTAINER, CRP, CMP ####[facility] Xrkjardjee99[address] [place], [place] [address]Dr. Farhat Leal Bilirubin [Mass/Vol] 0.6 mg/dL Normal 0.2-1.0 [facility] Comment on above: Performed By: #### B HIGHW[address] MAINTAINER, CRP, CMP ####[facility] Twmtppnfqy9[address] [place], [place] [address]Dr. Farhat Leal Calcium [Mass/Vol] 8.0 mg/dL Critically low 8.5-10.1 [facility] Comment on above: Performed By: #### B HIGHW[address] MAINTAINER, CRP, CMP ####[facility] Ldtpmmpeul8[address] [place], [place] [address]Dr. Farhat Leal Chloride [Moles/Vol] 98 mmol/L Normal 98-107 [facility] Comment on above: Performed By: #### B HIGHWAY MAINTAINER, CRP, CMP ####[facility] Dyqqrmniow5[address] [place], [place] [address]Dr. Farhat Leal CO2 [Moles/Vol] 23.7 mmol/L Normal 21.0-32.0 [facility] Comment on above: Performed By: #### B HIGHW[address] MAINTAINER, CRP, CMP ####[facility] Kvulzidsjt[address] [place], [place] [address]Dr. Farhat Leal Creatinine [Mass/Vol] 2.08 mg/dL Critically high 0.70-1.30 [facility] Comment on above: Performed By: #### B HIG[address] MAINTAINER, CRP, CMP ####[facility] Yhurmevkhn8[address] [place] [address]Dr. Farhat Leal EGFR-AF MARTINIQUAIS 38 mL/min/1.73m2 Critically low >=60 [facility] Comment on above: Performed By: #### B HIGHWAY MAINTAINER, CRP, CMP ####[facility] [address] [place] [address]Dr. Farhat Leal EGFR-NON AF MARTINIQUAIS 31 mL/min/1.73m2 Critically low >=60 [facility] Comment on above: Performed By: #### B HIGHWAY MAINTAINER, CRP, CMP ####[facility] Enckiges[address] [place], [place] [address]Dr. Farhat Leal Globulin (S) [Mass/Vol] 3.7 g/dL Normal [facility] Comment on above: Performed By: #### B HIGHWAY MAINTAINER, CRP, CMP ####[facility] Zqschrcekv[address] [place], [place] [address]Dr. Farhat Leal Glucose [Mass/Vol] 315 mg/dL Critically high 74-106 T [facility] Comment on above: Performed By: #### B HIGHWAY MAINTAINER, CRP, CMP ####[facility] Uuivmvaida[address] [place], [place] [address]Dr. Farhat Elvis Potassium [Moles/Vol] 4.0 mmol/L Normal 3.5-5.1 [facility] Comment on above: Performed By: #### B HIGHWAY MAINTAINER, CRP, CMP ####[facility] Ztcauknvjp[address] [place], [place] [address]Dr. Farhat Leal Protein [Mass/Vol] 5.2 g/dL Critically low 6.4-8.2 [facility] Comment on above: Performed By: #### B HIGHWAY MAINTAINER, CRP, CMP ####[facility] Thlocvvowj[address] [place], [place] [address]Dr. Farhat Leal Sodium [Moles/Vol] 131 mmol/L Critically low 136-[address] [facility] Comment on above: Performed By: #### B HIGHWAY MAINTAINER, CRP, CMP ####[facility] Vxxcyyztqa[address] [place], [place] [address]Dr. Farhat Leal Urea nitrogen [Mass/Vol] 50.0 mg/dL Critically high 7.0-18.0 [facility] Comment on above: Performed By: #### B HIGHWAY MAINTAINER, CRP, CMP ####[facility] N[address]fr[address] [place], [place] [address]DrSkylar Leal Urea nitrogen/Creatinine [Mass ratio] 24.0 mg/mg Normal [facility] Comment on above: Performed By: #### B HIGHWAY MAINTAINER, CRP, CMP ####[facility] Pdmlnowztg[address] [place], [place] [address]DrSkylar Leal PROTIMEon 11-26-2021 INR Coag (PPP) [Relative time] 1.31 {INR} Normal [facility] Comment on above: Performed By: #### P T ####[facility] Ivoglgqaut[address] [place], [place] [address]DrSkylar Leal INR GUIDELINES SEE BELOW Normal [facility] Comment on above: Result Comment: MALINA RED INR: 2.0 - 3.0 CONDITIONS NOT LISTED BELOW 2.5 - 3.5 FOR PROSTHETIC HEART VALVE REPLACEMENT 2.5 - 3.5 RECURRENT THROMBOSIS Performed By: #### P T ####[facility] Dkeptbwrqn[address] [place], [place] [address]DrSkylar Leal PT Coag (PPP) [Time] 13.9 s Critically high 9.0-11.6 [facility] Comment on above: Performed By: #### P T ####[facility] Yxnfzmxecx[address] [place], [place] [address]DrSkylar Leal SED RATE [facility] 2021 SED RATE 87 mm/hr Critically high <=20 [facility] Comment on above: Performed By: #### S EDR ####[facility] Mvewbgjnel5[address] [place], [place] [address]DrSkylar Leal BNPon 11-25-2021 Natriuretic peptide B (Bld) [Mass/Vol] 00563.0 pg/mL Critically high <=1,800.0 [facility] Comment on above: Performed By: #### C MP, BNP, CRP ####[facility] Jvzedamjmy[address] [place], [place] [address]DrSkylar Leal CBC AUTO DIFFon 11-25-2021 BASO # 0.0 103/ul Normal 0.0-0.1 [facility] Comment on above: Performed By: #### C BC ####[facility] [address] [place] [address]Dr. Farhat Leal Basophils/100 WBC (Bld) 0.4 % Normal 0.2-2.0 [facility] Comment on above: Performed By: #### C BC ####[facility] Qorccppzzj[address] [place] [address]Dr. Farhat Leal EO # 0.1 103/ul Normal 0.0-0.7 [facility] Comment on above: Performed By: #### C BC ####[facility] [address]sooho[address] [place] [address]Dr. Farhat Leal Eosinophils/100 WBC (Bld) 1.2 % Normal 0.9-7.0 [facility] Comment on above: Performed By: #### C BC ####[facility] Akzgwsshqm8[address] [place], [place] [address]Dr. Farhat Leal Erythrocyte distribution width (RBC) [Ratio] 13.7 % Normal 11.0-15.0 [facility] Comment on above: Performed By: #### C BC ####[facility] [address]ctcbjioei[address] [place] [address]Dr. Farhat Leal Hematocrit (Bld) [Volume fraction] 29.6 % Critically low 42.0-54.0 [facility] Comment on above: Performed By: #### C BC ####[facility] Kdbvnadlop[address] [place], [place] [address]Dr. Farhat Leal Hemoglobin (Bld) [Mass/Vol] 9.3 g/dL Critically low 14.0-18.0 [facility] Comment on above: Performed By: #### C BC ####[facility] Irevenueiz[address] [place] [address]Dr. Farhat Leal IG # 0.15 10e3/ul Critically high 0.00-0.03 The [facility] Comment on above: Performed By: #### C BC ####[facility] Mcefxflybv1641 [place], [place] [address]Xp. Farhat Leal IG % 1.4 % Critically high 0.0-0.5 [facility] Comment on above: Performed By: #### C BC ####[facility] Icscygvvyo6598 [place], [place] [address]Bo. Farhat Leal LYMPH # 0.8 103/ul Critically low 1.2-3.8 The [facility] Comment on above: Performed By: #### C BC ####[facility] [address]ts[address] [place] [id number]. Farhat Leal Lymphocytes/100 WBC (Bld) 7.3 % Critically low 20.5-60.0 [facility] Comment on above: Performed By: #### C BC ####[facility] [address] [place] [id number]. Farhat Leal MANUAL DIFF REQ NO Normal [facility] Comment on above: Performed By: #### C BC ####[facility] Abzdpfwnle39[address] [place] [id number]. Farhat Leal MCH (RBC) [Entitic mass] 29.3 pg Normal 25.9-34.0 [facility] Comment on above: Performed By: #### C BC ####[facility] Bhscwvjyrr[address] [place] [id number]. Farhat Leal MCHC (RBC) [Mass/Vol] 31.4 g/dL Normal 29.9-35.2 [facility] Comment on above: Performed By: #### C BC ####[facility] Y[address]livi[address] [place] [id number]. Farhat Leal MCV (RBC) [Entitic vol] 93.4 fL Normal 80.0-94.0 [facility] Comment on above: Performed By: #### C BC ####[facility] Wpmdohepfk22[address] [place] [id number]. Farhat Leal MONO # 1.3 103/ul Critically high 0.3-0.8 [facility] Comment on above: Performed By: #### C BC ####[facility] G[address]wsvylty65[address] [place] [id number]. Farhat Leal Monocytes/100 WBC (Bld) 12.3 % Critically high 1.7-12.0 [facility] Comment on above: Performed By: #### C BC ####[facility] Rayuhwhjvb4[address] [place] [id number]. Farhat Leal NEUT # 8.4 103/ul Critically high 1.4-6.5 [facility] Comment on above: Performed By: #### C BC ####[facility] Ugcopyyukp7[address] [place] [phone]. Farhat Leal Neutrophils/100 WBC (Bld) 77.4 % Critically high 43.0-75.0 [facility] Comment on above: Performed By: #### C BC ####[facility] Bwduvahytj[address] [place] [phone]. Farhat Leal Platelet mean volume (Bld) [Entitic vol] 9.8 fL Normal 9.5-13.5 [facility] Comment on above: Performed By: #### C BC ####[facility] Lpunnztjtf5[address] [place] [phone]. Farhat Leal PLT 390 103/ul Normal 150-450 [facility] Comment on above: Performed By: #### C BC ####[facility] Dwe[address]mypni14[address] [place] [phone]. Farhat Leal RBC 3.17 106/ul Critically low 4.70-6.10 [facility] Comment on above: Performed By: #### C BC ####[facility] Ocduwvamks[address] [place] [phone]. Farhat Leal WBC 10.9 103/ul Normal 4.0-11.0 [facility] Comment on above: Performed By: #### C BC ####[facility] Jwjzhshges[address] [place] [phone]. Farhat Leal CRPon 11-25-2021 CRP 27.2 mg/dL Critically high <=1.0 [facility] Comment on above: Performed By: #### C MP, BNP, CRP ####[facility] Grajesmqvu[address] [place] [address]Dr. Farhat Leal PROF 14(COMP METB)on 022 Albumin [Mass/Vol] 1.5 g/dL Critically low 3.4-5.0 [facility] Comment on above: Performed By: #### C MP, BNP, CRP ####[facility] Dvkmsdwkyu[address] [place] [address]Dr. Farhat Leal Albumin/Globulin [Mass ratio] 0.4 {ratio} Normal [facility] Comment on above: Performed By: #### C MP, BNP, CRP ####[facility] Bwmyjlxmzn36[address] [place] [address]Dr. Farhat Leal ALP [Catalytic activity/Vol] 86 U/L Normal 46-116 [facility] Comment on above: Performed By: #### C MP, BNP, CRP ####[facility] Hugzxuetpn[address] [place], [place] [address]Dr. Farhat Leal ALT [Catalytic activity/Vol] 34 U/L Normal 16-63 [facility] Comment on above: Performed By: #### C MP, BNP, CRP ####[facility] Rxpvevmbqo11[address] [place], [place] [address]Dr. Farhat Leal Anion gap [Moles/Vol] 17.8 mmol/L Normal [facility] Comment on above: Performed By: #### C MP, BNP, CRP ####[facility] Lwidrnikoy5[address] [place], [place] [address]Dr. Farhat Leal AST [Catalytic activity/Vol] 48 U/L Critically high 15-37 [facility] Comment on above: Performed By: #### C MP, BNP, CRP ####[facility] Vpqeniqwul18[address] [place], [place] [address]Dr. Farhat Leal Bilirubin [Mass/Vol] 0.8 mg/dL Normal 0.2-1.0 [facility] Comment on above: Performed By: #### C MP, BNP, CRP ####[facility] Upbdtfznct8[address] [place], [place] [address]Dr. Farhat Leal Calcium [Mass/Vol] 8.3 mg/dL Critically low 8.5-10.1 [facility] Comment on above: Performed By: #### C MP, BNP, CRP ####[facility] Imktxeyvvm[address] [place] [address]Dr. Farhat Leal Chloride [Moles/Vol] 97 mmol/L Critically low 98-107 [facility] Comment on above: Performed By: #### C MP, BNP, CRP ####[facility] Cbktrrblio7719 [place] [address]Dr. Farhat Leal CO2 [Moles/Vol] 23.0 mmol/L Normal 21.0-32.0 [facility] Comment on above: Performed By: #### C MP, BNP, CRP ####[facility] Dllizquqou7[address] [place], [place] [address]Dr. Farhat Leal Creatinine [Mass/Vol] 1.68 mg/dL Critically high 0.70-1.30 [facility] Comment on above: Performed By: #### C MP, BNP, CRP ####[facility] Vmpcycluvw6[address] [place], [place] [address]Dr. Farhat Leal EGFR-AF MARTINIQUAIS 48 mL/min/1.73m2 Critically low >=60 [facility] Comment on above: Performed By: #### C MP, BNP, CRP ####[facility] Vbzabhbidc[address] [place], [place] [address]Dr. Farhat Leal EGFR-NON AF MARTINIQUAIS 40 mL/min/1.73m2 Critically low >=60 [facility] Comment on above: Performed By: #### C MP, BNP, CRP ####[facility] Ywbjfnunxv4[address] [place] [address]Dr. Farhat Leal Globulin (S) [Mass/Vol] 3.9 g/dL Normal [facility] Comment on above: Performed By: #### C MP, BNP, CRP ####[facility] Hankdwdayv7926 [place] [address]Dr. Farhat Leal Glucose [Mass/Vol] 282 mg/dL Critically high 74-106 T [facility] Comment on above: Performed By: #### C MP, BNP, CRP ####[facility] Ymvrehrawc0618 [place] [address]Dr. Madelynlorri Leal Potassium [Moles/Vol] 4.8 mmol/L Normal 3.5-5.1 [facility] Comment on above: Performed By: #### C MP, BNP, CRP ####[facility] Gchfhtpkeq62[address] [place] [address]Dr. Madelynlorri Leal Protein [Mass/Vol] 5.4 g/dL Critically low 6.4-8.[address] [facility] Comment on above: Performed By: #### C MP, BNP, CRP ####[facility] Dfbxmtrxpl86[address] [place], [place] [address]Dr. Farhat Leal Sodium [Moles/Vol] 133 mmol/L Critically low 136-[address] [facility] Comment on above: Performed By: #### C MP, BNP, CRP ####[facility] Fqbmuwwfyt8[address] [place], [place] [address]Dr. Farhat Leal Urea nitrogen [Mass/Vol] 40.0 mg/dL Critically high 7.0-18.0 [facility] Comment on above: Performed By: #### C MP, BNP, CRP ####[facility] Cphhdglthk60[address] [place], [place] [address]Dr. Farhat Leal Urea nitrogen/Creatinine [Mass ratio] 23.8 mg/mg Normal [facility] Comment on above: Performed By: #### C MP, BNP, CRP ####[facility] Xylfrihnkv6714[address] [place], [place] [address]Dr. Farhat Leal PROTIMEon 11-25-2021 INR Coag (PPP) [Relative time] 1.48 {INR} Normal [facility] Comment on above: Performed By: #### P T ####[facility] Wshgxmorte70[address] [place], [place] [address]Dr. Farhat Leal INR GUIDELINES SEE BELOW Normal [facility] Comment on above: Result Comment: MALINA RED INR: 2.0 - 3.0 CONDITIONS NOT LISTED BELOW 2.5 - 3.5 FOR PROSTHETIC HEART VALVE REPLACEMENT 2.5 - 3.5 RECURRENT THROMBOSIS Performed By: #### P T ####[facility] Vzptdtuika93[address] [place], [place] [address]Dr. Farhat Elvis PT Coag (PPP) [Time] 15.6 s Critically high 9.0-11.6 [facility] Comment on above: Performed By: #### P T ####[facility] Qeiustydxy97[address] [place], [place] [address]Dr. Farhat Leal SED RATE WESTERGRENon 2021 SED RATE 76 mm/hr Critically high <=20 [facility] Comment on above: Performed By: #### S EDR ####[facility] Lmezdnxybm0566[address] [place], [place] [address]Dr. Madelynlorri Leal BNPon 11-24-2021 Natriuretic peptide B (Bld) [Mass/Vol] 78641.0 pg/mL Critically high <=1,800.0 [facility] Comment on above: Performed By: #### B HIGHWAY MAINTAINER, CMP, CRP ####[facility] Ywmyrmcwph[address] [place], [place] [address]Dr. Madelynlorri Leal CBC AUTO DIFFon 11-24-2021 BASO # 0.0 103/ul Normal 0.0-0.1 [facility] Comment on above: Performed By: #### C BC ####[facility] Qblewlngoa9[address] [place], [place] [address]Dr. Farhat Leal Basophils/100 WBC (Bld) 0.3 % Normal 0.2-2.0 [facility] Comment on above: Performed By: #### C BC ####[facility] Dpaoecekpw9518[address] [place], [place] [address]Dr. Farhat Leal EO # 0.2 103/ul Normal 0.0-0.7 [facility] Comment on above: Performed By: #### C BC ####[facility] Ljmrszsfqj2045[address] [place], [place] [address]Dr. Farhat Leal Eosinophils/100 WBC (Bld) 1.2 % Normal 0.9-7.0 [facility] Comment on above: Performed By: #### C BC ####[facility] Mrjawsydyu3124[address] [place], [place] [address]Dr. Farhat Leal Erythrocyte distribution width (RBC) [Ratio] 13.5 % Normal 11.0-15.0 [facility] Comment on above: Performed By: #### C BC ####[facility] Joheidkrva1434 [place] [address]Dr. Farhat Leal Hematocrit (Bld) [Volume fraction] 31.1 % Critically low 42.0-54.0 [facility] Comment on above: Performed By: #### C BC ####[facility] Qphywsmruv8167[address] [place], [place] [address]Dr. Farhat Leal Hemoglobin (Bld) [Mass/Vol] 10.0 g/dL Critically low 14.0-18.0 [facility] Comment on above: Performed By: #### C BC ####[facility] Dkllbnjdjp0563[address] [place], [place] [address]Dr. Farhat Leal IG # 0.13 10e3/ul Critically high 0.00-0.03 [facility] Comment on above: Performed By: #### C BC ####[facility] Xjxucaofhs51[address] [place], [place] [address]Dr. Farhat Leal IG % 1.0 % Critically high 0.0-0.5 [facility] Comment on above: Performed By: #### C BC ####[facility] Grjjzsvhnn01[address] [place], [place] [address]Dr. Farhat Leal LYMPH # 0.7 103/ul Critically low 1.2-3.8 [facility] Comment on above: Performed By: #### C BC ####[facility] Hplfeylxov5235[address] [place], [place] [address]Dr. Farhat Leal Lymphocytes/100 WBC (Bld) 4.9 % Critically low 20.5-60.0 [facility] Comment on above: Performed By: #### C BC ####[facility] Alkusayuwt4[address] [place], [place] [address]Dr. Farhat Leal MANUAL DIFF REQ NO Normal [facility] Comment on above: Performed By: #### C BC ####[facility] Gwcudumxkz5[address] [place], [place] [address]Dr. Farhat Leal MCH (RBC) [Entitic mass] 29.6 pg Normal 25.9-34.0 [facility] Comment on above: Performed By: #### C BC ####[facility] Bwlzrkrlhp[address] [place] [address]Dr. Farhat Leal MCHC (RBC) [Mass/Vol] 32.2 g/dL Normal 29.9-35.2 [facility] Comment on above: Performed By: #### C BC ####[facility] Wbohwlxigx0804 [place] [address]Dr. Farhat Leal MCV (RBC) [Entitic vol] 92.0 fL Normal 80.0-94.0 [facility] Comment on above: Performed By: #### C BC ####[facility] Hdlngoviac0671 [place] [address]Dr. Farhat Leal MONO # 1.3 103/ul Critically high 0.3-0.8 [facility] Comment on above: Performed By: #### C BC ####[facility] Qhgielbtgr[address] [place], [place] [address]Dr. Farhat Elvis Monocytes/100 WBC (Bld) 9.6 % Normal 1.7-12.0 [facility] Comment on above: Performed By: #### C BC ####[facility] Lsfpfksbtr[address] [place], [place] [address]Dr. Farhat Leal NEUT # 11.2 103/ul Critically high 1.4-6.5 [facility] Comment on above: Performed By: #### C BC ####[facility] Kgnyoshudl26[address] [place], [place] [address]Dr. Farhat Elvis Neutrophils/100 WBC (Bld) 83.0 % Critically high 43.0-75.0 [facility] Comment on above: Performed By: #### C BC ####[facility] Ecdyrmkxae9225[address] [place], [place] [address]Dr. Farhat Elvis Platelet mean volume (Bld) [Entitic vol] 9.5 fL Normal 9.5-13.5 [facility] Comment on above: Performed By: #### C BC ####[facility] Cjqqwjvkpn1605 [place], [place] [address]Ht. Farhat Leal PLT 395 103/ul Normal 150-450 [facility] Comment on above: Performed By: #### C BC ####[facility] Glweezgaxg1849 [place], [place] [address]Oe. Farhat Leal RBC 3.38 106/ul Critically low 4.70-6.10 [facility] Comment on above: Performed By: #### C BC ####[facility] Mhbejefzem38[address] [place] [id number]. Farhat Leal WBC 13.4 103/ul Critically high 4.0-11.0 [facility] Comment on above: Performed By: #### C BC ####[facility] Xyjlypruqk3212 [place] [id number]. Farhat Leal CRPon 11-24-2021 CRP 27.8 mg/dL Critically high <=1.0 [facility] Comment on above: Performed By: #### B HIGHWAY MAINTAINER, CMP, CRP ####[facility] [address]nbepzei[address] [place], [place] [id number]. Farhat Leal CULTURE ANAEROBICon 11-25-19 22 CULTURE ANAEROBIC Culture Observations : NO GROWTH OF ANAEROBES AT 72 HOURS. [facility] Comment on above: Performed By: #### A NACX ####[facility] [address]cfqnaavm[address] [place], [place] [id number]. Yilorri Leal CULTURE ANAEROBIC Culture Observations : NO GROWTH OF ANAEROBES AT 72 HOURS. [facility] Comment on above: Performed By: #### A NACX ####[facility] Semyeugmit[address] [place], [place] [id number]. Yilan Leal CULTURE ANAEROBIC Culture Observations : No growth of anaerobes at 72 hours. [facility] Comment on above: Performed By: #### A NACX ####[facility] [address]mwitlmbsu[address] [place], [place] [id number]. Yilan Leal CULTURE ANAEROBIC Culture Observations : No growth of anaerobes at 72 hours. [facility] Comment on above: Performed By: #### A NACX ####[facility] Ozjhzotqmc[address] [place], [place] [address]Dr. Farhat Leal CULTURE URINEon 11-24-2021 CULTURE URINE Culture Observations : NO GROWTH. Normal [facility] Comment on above: Performed By: #### U RCX ####[facility] Ghkhyckghf045[address] [place], [place] [address]Dr. Farhat Leal ECHOCARDIO M/2D COMPLETEon 1 ECHOCARDIO M/2D COMPLETE Normal [facility] ER URINE PROFILEon Bilirubin Ql (U) Negative Normal NEGATIVE [facility] Comment on above: Performed By: #### E RUR ####[facility] Xknjocnxap8938[address] [place], [place] [address]Dr. Farhat Leal Clarity (U) CLEAR Normal CLEAR [facility] Comment on above: Performed By: #### E RUR ####[facility] Kelhnrpxdx[address] [place], [place] [address]Dr. Farhat Leal Color (U) YELLOW Normal YELLOW [facility] Comment on above: Performed By: #### E RUR ####[facility] Duzghrdzfp079[address] [place], [place] [address]Dr. Farhat Leal ERUAHD A micrscopic examination will be performed if indicated. Normal [facility] Comment on above: Performed By: #### E RUR ####[facility] Xzmdxttbid9717[address] [place], [place] [address]Dr. Farhat Leal Glucose Ql (U) Negative Normal NEGATIVE [facility] Comment on above: Performed By: #### E RUR ####[facility] Sppzdwfqyx6543[address] [place], [place] [address]Dr. Frahat Leal Hemoglobin Ql (U) Negative Normal NEGATIVE [facility] Comment on above: Performed By: #### E RUR ####[facility] Qjguxdkcnk2668[address] [place], [place] [address]Dr. Farhat Leal Ketones Ql (U) TRACE Abnormal NEGATIVE [facility] Comment on above: Performed By: #### E RUR ####[facility] Odivjginrp1272[address] [place], [place] [address]Dr. Farhat Leal LEUKOCYTES Negative Normal NEGATIVE [facility] Comment on above: Performed By: #### E RUR ####[facility] Pzectaopzv4[address] [place], [place] [address]Dr. Farhat Leal Nitrite Ql (U) Negative Normal NEGATIVE [facility] Comment on above: Performed By: #### E RUR ####[facility] Mpwfhurcou6928[address] [place], [place] [address]Dr. Farhat Leal pH (U) 5.5 [pH] Normal 5-9 [facility] Comment on above: Performed By: #### E RUR ####[facility] Lepatrrjhm56[address] [place], [place] [address]Dr. Farhat Leal SPEC GRAVITY 1.015 Normal 1.005-<=1.02 5 [facility] Comment on above: Performed By: #### E RUR ####[facility] Onnosnidek4[address] [place], [place] [address]Dr. Farhat Leal UA PROTEIN Negative Normal NEGATIVE/ TRACE [facility] Comment on above: Performed By: #### E RUR ####[facility] Blwyjbuktk[address] [place], [place] [address]Dr. Farhat Leal UR MICRO IND NOT INDICATED Normal [facility] Comment on above: Performed By: #### E RUR ####[facility] Ghypjfcuev01[address] [place], [place] [address]Dr. Farhat Leal Urobilinogen Qn (U) 0.2 {Boyd'U}/dL Normal 0.2 - 1. 0 [facility] Comment on above: Performed By: #### E RUR ####[facility] Qrthhxebip0[address] [place], [place] [address]Dr. Farhat Leal GRAM STAINon 11-24-2021 DIPHTHEROIDS Normal [facility] Comment on above: Performed By: #### G STAIN ####[facility] Uoykwiokfk[address] [place] [id number]. Farhat Leal EPITHELIALS Normal [facility] Comment on above: Performed By: #### G STAIN ####[facility] Idxfmvlthh[address] [place], [place] [address]Dr. Farhat Lela FUNGAL ELEMENTS Normal [facility] Comment on above: Performed By: #### G STAIN ####[facility] [address]xjcduy[address] [place] [address]Dr. Farhat Leal GRAM NEG BACILLI Normal [facility] Comment on above: Performed By: #### G STAIN ####[facility] Bvsktyrlhj[address] [place] [address]Dr. Farhat Leal GRAM NEG DIPPLOCOCCI Normal [facility] Comment on above: Performed By: #### G STAIN ####[facility] Kmqairbxwj20[address] [place] [address]Dr. Farhat Leal GRAM POS BACILLI Normal [facility] Comment on above: Performed By: #### G STAIN ####[facility] Lbsrpigxty[address] [place], [place] [address]Dr. Farhat Leal GRAM POSITIVE COCCI FEW Normal [facility] Comment on above: Performed By: #### G STAIN ####[facility] Msavfvyiqj3[address] [place], [place] [address]Dr. Farhat Leal GRAM STAIN SOURCE RT ACHILLES TENDON Normal [facility] Comment on above: Performed By: #### G STAIN ####[facility] Mnirsbslml[address] [place], [place] [address]Dr. Farhat Leal GS_DIPTH Normal [facility] Comment on above: Performed By: #### G STAIN ####[facility] Gmqjhtdrpw99[address] [place], [place] [address]Dr. Farhat Leal WBC RARE Normal [facility] Comment on above: Performed By: #### G STAIN ####[facility] Phnuxospib[address] [place] [address]Dr. Farhat Leal COMMENTS NO ORGANISMS OBSERVED Normal [facility] Comment on above: Performed By: #### G STAIN ####[facility] Ptsxrwtzro[address] [place], [place] [address]Dr. Farhat Leal DIPHTHEROIDS Normal [facility] Comment on above: Performed By: #### G STAIN ####[facility] [address]zawfqwnn[address] [place] [address]Dr. Farhat Leal EPITHELIALS Normal [facility] Comment on above: Performed By: #### G STAIN ####[facility] Znibjkvheu7[address] [place] [id number]. Farhat Leal FUNGAL ELEMENTS Normal [facility] Comment on above: Performed By: #### G STAIN ####[facility] Njptgszyay5465 [place] [phone]. Farhat Leal GRAM NEG BACILLI Normal [facility] Comment on above: Performed By: #### G STAIN ####[facility] Eeotmikgzy8275 [place] [address]Dr. Farhat Leal GRAM NEG DIPPLOCOCCI Normal [facility] Comment on above: Performed By: #### G STAIN ####[facility] Ksipckdejm6861 [place] [address]Dr. Farhat Leal GRAM POS BACILLI Normal [facility] Comment on above: Performed By: #### G STAIN ####[facility] Dphfnnkbih16[address] [place], [place] [address]Dr. Farhat Leal GRAM POSITIVE COCCI Normal [facility] Comment on above: Performed By: #### G STAIN ####[facility] Yhoqxjygah[address] [place], [place] [address]Dr. Farhat Leal GRAM STAIN SOURCE RT CALCANEOUS Normal [facility] Comment on above: Performed By: #### G STAIN ####[facility] Iguwzaqnwg6434 [place] [address]Dr. Farhat Leal GS_DIPTH Normal [facility] Comment on above: Performed By: #### G STAIN ####[facility] Furedhlxua5294 [place] [address]Dr. Farhat Leal WBC RARE Normal [facility] Comment on above: Performed By: #### G STAIN ####[facility] Flfpsrirwf[address] [place] [address]Dr. Farhat Leal DIPHTHEROIDS Normal [facility] Comment on above: Performed By: #### G STAIN ####[facility] Idlezxkrbm7014 [place] [address]Dr. Farhat Leal EPITHELIALS Normal [facility] Comment on above: Performed By: #### G STAIN ####[facility] Vdgwylhpzx5713 [place] [phone]. Farhat Leal FUNGAL ELEMENTS Normal [facility] Comment on above: Performed By: #### G STAIN ####[facility] Jcafbtczzr4877 [place] [address]Dr. Farhat Leal GRAM NEG BACILLI FEW Normal [facility] Comment on above: Performed By: #### G STAIN ####[facility] Mphzwwnqtt0327 [place] [address]Dr. Farhat Leal GRAM NEG DIPPLOCOCCI Normal [facility] Comment on above: Performed By: #### G STAIN ####[facility] Ywygvsqwyy6845 [place] [address]Dr. Farhat Leal GRAM POS BACILLI Normal [facility] Comment on above: Performed By: #### G STAIN ####[facility] Nqgtqhinng0033 [place] [address]Dr. Farhat Leal GRAM POSITIVE COCCI FEW Normal [facility] Comment on above: Performed By: #### G STAIN ####[facility] Ephpbvomfq8103 [place] [address]Dr. Farhat Leal GRAM STAIN SOURCE #2 Rt foot abscess Normal [facility] Comment on above: Performed By: #### G STAIN ####[facility] Sopwabrope23[address] [place] [address]Dr. Farhat Leal GS_DIPTH Normal [facility] Comment on above: Performed By: #### G STAIN ####[facility] Neyvoxoteh6592 [place] [address]Dr. Farhat Leal WBC RARE Normal [facility] Comment on above: Performed By: #### G STAIN ####[facility] Qixhidgjec8471 [place] [address]Dr. Farhat Leal DIPHTHEROIDS Normal [facility] Comment on above: Performed By: #### G STAIN ####[facility] Hqbdohzejw5725 [place] [address]Dr. Farhat Leal EPITHELIALS Normal [facility] Comment on above: Performed By: #### G STAIN ####[facility] Xqwxivwdpa0169 [place] [address]Dr. Farhat Leal FUNGAL ELEMENTS Normal [facility] Comment on above: Performed By: #### G STAIN ####[facility] Betfcqhpkp2562 [place] [address]Dr. Farhat Leal GRAM NEG BACILLI FEW Normal [facility] Comment on above: Performed By: #### G STAIN ####[facility] Bzfwyscntt2450 [place] [address]Dr. Farhat Leal GRAM NEG DIPPLOCOCCI Normal [facility] Comment on above: Performed By: #### G STAIN ####[facility] Hnbdaqbbfi00[address] [place], [place] [address]Dr. Farhat Leal GRAM POS BACILLI Normal [facility] Comment on above: Performed By: #### G STAIN ####[facility] Bjlqmfmait167[address] [place], [place] [address]Dr. Farhat Leal GRAM POSITIVE COCCI FEW Normal [facility] Comment on above: Performed By: #### G STAIN ####[facility] Eaagqzajnd3138[address] [place], [place] [address]Dr. Farhat Leal GRAM STAIN SOURCE #1 Rt foot abscess Normal [facility] Comment on above: Performed By: #### G STAIN ####[facility] Accjeypzws9764[address] [place], [place] [address]Dr. Farhat Leal GS_DIPTH Normal [facility] Comment on above: Performed By: #### G STAIN ####[facility] Mgoqdfzdfp7537[address] [place], [place] [address]Dr. Farhat Leal WBC NONE SEEN Normal [facility] Comment on above: Performed By: #### G STAIN ####[facility] Srqvlvpxtn57[address] [place], [place] [address]Dr. Farhat Leal POINT OF CARE GLUCOSEon 10- 0 Glucose [Mass/Vol] 331 mg/dL Critically high 74-106 [facility] Comment on above: Performed By: #### P OCGLUC ####[facility] Uheaejwwmk7746[address] [place], [place] [address]Dr. Farhat Leal Glucose [Mass/Vol] 236 mg/dL Critically high 74-106 [facility] Comment on above: Performed By: #### P OCGLUC ####[facility] Qljpxrbwzd4520 [place] [address]Dr. Farhat Leal PROF 14(COMP METB)on 022 Albumin [Mass/Vol] 1.6 g/dL Critically low 3.4-5.0 [facility] Comment on above: Performed By: #### B HIGHWAY MAINTAINER, CMP, CRP ####[facility] Ddvmhnlmms8554 [place] [address]Dr. Farhat Leal Albumin/Globulin [Mass ratio] 0.4 {ratio} Normal [facility] Comment on above: Performed By: #### B HIGHWAY MAINTAINER, CMP, CRP ####[facility] Gnmilkrham[address] [place], [place] [address]Dr. Farhat Leal ALP [Catalytic activity/Vol] 94 U/L Normal 46-116 [facility] Comment on above: Performed By: #### B HIGHWAY MAINTAINER, CMP, CRP ####[facility] Riomceojix5[address] [place], [place] [address]Dr. Farhat Leal ALT [Catalytic activity/Vol] 49 U/L Normal 16-63 [facility] Comment on above: Performed By: #### B HIGHWAY MAINTAINER, CMP, CRP ####[facility] Ksrwdjdedu9428[address] [place], [place] [address]Dr. Farhat Leal Anion gap [Moles/Vol] 12.5 mmol/L Normal [facility] Comment on above: Performed By: #### B HIGHWAY MAINTAINER, CMP, CRP ####[facility] Gbqexlrwpn7076 [place] [address]Dr. Farhat Leal AST [Catalytic activity/Vol] 102 U/L Critically high 15-37 [facility] Comment on above: Performed By: #### B HIGHWAY MAINTAINER, CMP, CRP ####[facility] Plmwqpuayl57[address] [place], [place] [address]Dr. Farhat Leal Bilirubin [Mass/Vol] 0.8 mg/dL Normal 0.2-1.0 [facility] Comment on above: Performed By: #### B HIGHWAY MAINTAINER, CMP, CRP ####[facility] Jprbokwpvn[address] [place], [place] [address]Dr. Farhat Leal Calcium [Mass/Vol] 8.4 mg/dL Critically low 8.5-10.[address] [facility] Comment on above: Performed By: #### B HIGHWAY MAINTAINER, CMP, CRP ####[facility] Mjxmqywxej5205 [place] [address]Dr. Farhat Leal Chloride [Moles/Vol] 96 mmol/L Critically low 98-107 [facility] Comment on above: Performed By: #### B HIGHWAY MAINTAINER, CMP, CRP ####[facility] Yncxcsyutl47[address] [place], [place] [address]Dr. Farhat Leal CO2 [Moles/Vol] 24.8 mmol/L Normal 21.0-32.0 [facility] Comment on above: Performed By: #### B HIGHWAY MAINTAINER, CMP, CRP ####[facility] Kyebtbjeec9102[address] [place], [place] [address]Dr. Farhat Leal Creatinine [Mass/Vol] 1.36 mg/dL Critically high 0.70-1.30 [facility] Comment on above: Performed By: #### B HIGHWAY MAINTAINER, CMP, CRP ####[facility] Eqmtwqrfrk085[address] [place], [place] [address]Dr. Farhat Leal EGFR-AF MARTINIQUAIS >60 Normal >=60 [facility] Comment on above: Performed By: #### B HIGHW[address] MAINTAINER, CMP, CRP ####[facility] Rcfwytjjgi5092[address] [place], [place] [address]Dr. Farhat Leal EGFR-NON AF MARTINIQUAIS 51 mL/min/1.73m2 Critically low >=60 [facility] Comment on above: Performed By: #### B HIGHWAY MAINTAINER, CMP, CRP ####[facility] Kntxjlhplo7047 [place] [address]Dr. Farhat Leal Globulin (S) [Mass/Vol] 4.1 g/dL Normal [facility] Comment on above: Performed By: #### B HIGHWAY MAINTAINER, CMP, CRP ####[facility] Fphmrurzqg7706[address] [place], [place] [address]Dr. Farhat Leal Glucose [Mass/Vol] 204 mg/dL Critically high 74-106 [facility] Comment on above: Performed By: #### B HIGHWAY MAINTAINER, CMP, CRP ####[facility] Zdyccuoiiu9370 [place] [address]Dr. Madelynlorri Leal Potassium [Moles/Vol] 4.3 mmol/L Normal 3.5-5.1 [facility] Comment on above: Performed By: #### B HIGHWAY MAINTAINER, CMP, CRP ####[facility] Mkilldbdsd5674 [place] [address]Dr. Madelynlorri Leal Protein [Mass/Vol] 5.7 g/dL Critically low 6.4-8.[address] [facility] Comment on above: Performed By: #### B HIGHWAY MAINTAINER, CMP, CRP ####[facility] Dldwbcdrap818[address] [place], [place] [address]Dr. Farhat Leal Sodium [Moles/Vol] 129 mmol/L Critically low 136-[address] [facility] Comment on above: Performed By: #### B HIGHW[address] MAINTAINER, CMP, CRP ####[facility] Oepdqbzxaz024[address] [place], [place] [address]Dr. Farhat Leal Urea nitrogen [Mass/Vol] 41.0 mg/dL Critically high 7.0-18.0 [facility] Comment on above: Performed By: #### B HIGHWAY MAINTAINER, CMP, CRP ####[facility] Jofreropmp2146[address] [place], [place] [address]Dr. Madelynlorri Elvis Urea nitrogen/Creatinine [Mass ratio] 30.1 mg/mg Normal [facility] Comment on above: Performed By: #### B HIGHW[address] MAINTAINER, CMP, CRP ####[facility] Jcszbdsbny8887[address] [place], [place] [address]Dr. Farhat Leal PROTIMEon 11-24-2021 INR Coag (PPP) [Relative time] 2.20 {INR} Normal [facility] Comment on above: Performed By: #### P T ####[facility] Ltjasstjzx0212[address] [place], [place] [address]Dr. Farhat Leal INR GUIDELINES SEE BELOW Normal [facility] Comment on above: Result Comment: MALINA RED INR: 2.0 - 3.0 CONDITIONS NOT LISTED BELOW 2.5 - 3.5 FOR PROSTHETIC HEART VALVE REPLACEMENT 2.5 - 3.5 RECURRENT THROMBOSIS Performed By: #### P T ####[facility] Vacioczhkm6110 [place] [address]Dr. Farhat Leal PT Coag (PPP) [Time] 22.6 s Critically high 9.0-11.6 [facility] Comment on above: Performed By: #### P T ####[facility] Mixdbopfwb0917 [place] [phone]. Farhat Leal SED RATE [facility] 2021 SED RATE 80 mm/hr Critically high <=20 [facility] Comment on above: Performed By: #### S EDR ####[facility] Gnaiinojol5[address] [place], [place] [address]Dr. Farhat Elvis BLOOD CULTURE ID PANELon A. baumannii Not detected Normal NOT DETECTED [facility] Comment on above: Performed By: #### B CID2 ####[facility] Bhibuynncp8636[address] [place], [place] [address]Dr. Farhat Leal Bacteriodes fragilis Not detected Normal NOT DETECTED [facility] Comment on above: Performed By: #### B CID2 ####[facility] Pdlstekwqb8555[address] [place], [place] [address]Dr. Farhat Elvis BCID CONTROLS PASSED Normal [facility] Comment on above: Performed By: #### B CID2 ####[facility] Movymjpkiq913[address] [place], [place] [address]Dr. Farhat Leal BCIDBTHD BLOOD CULTURE BOTTLE INFORMATION Normal [facility] Comment on above: Performed By: #### B CID2 ####[facility] Pcarvfbziw1692[address] [place], [place] [address]Dr. Farhat Elvis BCIDHD1 ANTIMICROBIAL RESISTANCE GENES Normal [facility] Comment on above: Performed By: #### B CID2 ####[facility] Znhqifabve9447[address] [place], [place] [address]Dr. Madelynlorri Leal BCIDHD2 SEE BELOW Normal [facility] Comment on above: Result Comment: Note : Antimicrobial resitance can occur via multiple mechanisms. A Not Detected result for the [employer] antomicrobial resistance gene assays does not indicate antimicrobial susceptibility. Subculturing is required for species identification and susceptibility testing of isolates. Performed By: #### B CID2 ####[facility] Hfmshbazob1067 [place] [address]Dr. Farhat Leal BCIDHD3 Positive Normal [facility] Comment on above: Performed By: #### B CID2 ####[facility] Hdagyfphcu0600 [place] [address]Dr. Farhat Leal BCIDHD4 Negative Normal [facility] Comment on above: Performed By: #### B CID2 ####[facility] Ocrwlefnsn7577 [place] [address]Dr. Farhat Leal BCIDHD5 YEAST Normal [facility] Comment on above: Performed By: #### B CID2 ####[facility] Pxahmnnajb3197[address] [place], [place] [address]Dr. Farhat Leal Bottle Set: Set 1 Normal [facility] Comment on above: Performed By: #### B CID2 ####[facility] Pzdazdlqux9507[address] [place], [place] [address]Dr. Farhat Leal Bottle: Aerobic Normal [facility] Comment on above: Performed By: #### B CID2 ####[facility] Ocsyqdivvl0086[address] [place], [place] [address]Dr. Farhat [facility] C. neoformans/gattii Not detected Normal NOT DETECTED [facility] Comment on above: Performed By: #### B CID2 ####[facility] Jgwuintnry9[address] [place], [place] [address]Dr. Yilorri [facility] Disha albicans Not detected Normal NOT DETECTED [facility] Comment on above: Performed By: #### B CID2 ####[facility] Drrxudjidt3383[address] [place], [place] [address]Dr. Yilorri Leal Disha auris Not detected Normal NOT DETECTED [facility] Comment on above: Performed By: #### B CID2 ####[facility] Kngpprxrzu0114[address] [place], [place] [address]Dr. Yilorri [facility] Disha glabrata Not detected Normal NOT DETECTED [facility] Comment on above: Performed By: #### B CID2 ####[facility] Mbiqfkzpig0898[address] [place], [place] [address]Dr. Farhat Leal Disha Krusei Not detected Normal NOT DETECTED [facility] Comment on above: Performed By: #### B CID2 ####[facility] Gdzctgkqav6834[address] [place], [place] [address]Dr. Farhat Leal Disha Parapsilosis Not detected Normal NOT DETECTED [facility] Comment on above: Performed By: #### B CID2 ####[facility] Tjusextftz538[address] [place], [place] [address]Dr. Farhat Leal Disha Tropicalis Not detected Normal NOT DETECTED [facility] Comment on above: Performed By: #### B CID2 ####[facility] Zxpbirfehv3103[address] [place], [place] [address]Dr. Madelynlorri Leal CTX-M Resistant Gene Not Applicable Normal NOT DETECTE D [facility] Comment on above: Performed By: #### B CID2 ####[facility] Xjopvczrng004[address] [place], [place] [address]Dr. Farhat Leal E. Cloacae complex Not detected Normal NOT DETECTED [facility] Comment on above: Performed By: #### B CID2 ####[facility] Auhhrfwcwd5936[address] [place], [place] [address]Dr. Farhat Leal E. faecalis Not detected Normal NOT DETECTED [facility] Comment on above: Performed By: #### B CID2 ####[facility] Ylratkbwrs3959[address] [place], [place] [address]Dr. Farhat Leal E. faecium Not detected Normal NOT DETECTED [facility] Comment on above: Performed By: #### B CID2 ####[facility] Eaitacllzr6929[address] [place], [place] [address]Dr. Farhat Leal Enterobacteriaceae Not detected Normal NOT DETECTED [facility] Comment on above: Performed By: #### B CID2 ####[facility] Pzyklshwaa3424[address] [place], [place] [address]Dr. Farhat Leal Escherichia coli Not detected Normal NOT DETECTED [facility] Comment on above: Performed By: #### B CID2 ####[facility] Cnqhoijzak8623[address] [place], [place] [address]Dr. Madelynlorri Leal H. influenzae Not detected Normal NOT DETECTED [facility] Comment on above: Performed By: #### B CID2 ####[facility] Aamkurylfy280[address] [place], [place] [address]Dr. Farhat Leal IMP Resistant Gene Not Applicable Normal NOT DETECTED [facility] Comment on above: Performed By: #### B CID2 ####[facility] Jghzccvltk376[address] [place], [place] [address]Dr. Farhat Leal K. oxytoca Not detected Normal NOT DETECTED [facility] Comment on above: Performed By: #### B CID2 ####[facility] Jaentifzdp384[address] [place], [place] [address]Dr. Farhat Leal K. pneumoniae Not detected Normal NOT DETECTED [facility] Comment on above: Performed By: #### B CID2 ####[facility] Lhuymqnvpe6607[address] [place], [place] [address]Dr. Madelynlorri Leal Klebsiella aerogenes Not detected Normal NOT DETECTED [facility] Comment on above: Performed By: #### B CID2 ####[facility] Bkklqslyra4897[address] [place], [place] [address]Dr. Farhat Leal KPC Resistant Gene Not Applicable Normal NOT DETECTED [facility] Comment on above: Performed By: #### B CID2 ####[facility] Nltyalpkim4572[address] [place], [place] [address]Dr. Farhat Leal List. monocytogenes Not detected Normal NOT DETECTED [facility] Comment on above: Performed By: #### B CID2 ####[facility] Kegugyhadr2635[address] [place], [place] [address]Dr. Farhat Leal Mcr-1 Resistant Gene Not Applicable Normal NOT DETECTE D [facility] Comment on above: Performed By: #### B CID2 ####[facility] Gxfzuviefg118[address] [place], [place] [address]Dr. Madelynlan Elvis mecA/C Not Applicable Normal NOT DETECTED [facility] Comment on above: Performed By: #### B CID2 ####[facility] Bavmsotlko1543[address] [place], [place] [address]Dr. Farhat Leal mecA/C MREJ Detected Abnormal NOT DETECTED [facility] Comment on above: Performed By: #### B CID2 ####[facility] Syrjxmsdjx788[address] [place], [place] [address]Dr. Farhat Leal N. meningitidis Not detected Normal NOT DETECTED [facility] Comment on above: Performed By: #### B CID2 ####[facility] Imhyvqwkdv2094[address] [place], [place] [address]Dr. Farhat Leal NDM Resistant Gene Not Applicable Normal NOT DETECTED [facility] Comment on above: Performed By: #### B CID2 ####[facility] Yhiqplmpho7294[address] [place], [place] [address]Dr. Farhat Leal Oxa-48-like Not Applicable Normal NOT DETECTED [facility] Comment on above: Performed By: #### B CID2 ####[facility] Wkoudnxuak293[address] [place], [place] [address]Dr. Farhat Leal Proteus Not detected Normal NOT DETECTED [facility] Comment on above: Performed By: #### B CID2 ####[facility] Zksyuchyjd5986[address] [place], [place] [address]Dr. Farhat Leal Pseud. aeruginosa Not detected Normal NOT DETECTED [facility] Comment on above: Performed By: #### B CID2 ####[facility] Jrqfzvdocv8967[address] [place], [place] [address]Dr. Farhat Leal S. maltophilia Not detected Normal NOT DETECTED [facility] Comment on above: Performed By: #### B CID2 ####[facility] Nzuzmwspln5715[address] [place], [place] [address]Dr. Farhat Leal Salmonella Not detected Normal NOT DETECTED [facility] Comment on above: Performed By: #### B CID2 ####[facility] Foemjnqpry7947[address] [place], [place] [address]Dr. Farhat Leal Seratia marcescens Not detected Normal NOT DETECTED [facility] Comment on above: Performed By: #### B CID2 ####[facility] Btyzqtejoi0625[address] [place], [place] [address]Dr. Farhat Leal Site: Rt Hand Normal [facility] Comment on above: Performed By: #### B CID2 ####[facility] Ybtvwrwisy[address] [place], [place] [address]Dr. Farhat Leal Staph. aureus Detected Abnormal NOT DETECTED [facility] Comment on above: Performed By: #### B CID2 ####[facility] Jpcwzzhywp6[address] [place], [place] [address]Dr. Farhat Leal Staph. epidermidis Not detected Normal NOT DETECTED [facility] Comment on above: Performed By: #### B CID2 ####[facility] Ucbzlieerg8162[address] [place], [place] [address]Dr. Farhat Leal Staph. lugdunensis Not detected Normal NOT DETECTED [facility] Comment on above: Performed By: #### B CID2 ####[facility] Txwnhdkljy[address] [place], [place] [address]Dr. Farhat Leal Staphylococcus Detected Abnormal NOT DETECTED [facility] Comment on above: Performed By: #### B CID2 ####[facility] Sekgfxyzyo[address] [place], [place] [address]Dr. Farhat Leal Strep. agalactiae Not detected Normal NOT DETECTED [facility] Comment on above: Performed By: #### B CID2 ####[facility] Fwynuvkyaj[address] [place], [place] [address]Dr. Farhat Leal Strep. pneumoniae Not detected Normal NOT DETECTED [facility] Comment on above: Performed By: #### B CID2 ####[facility] Bwxrxtwyae[address] [place], [place] [address]Dr. Farhat Leal Strep. pyogenes Not detected Normal NOT DETECTED The [facility] Comment on above: Performed By: #### B CID2 ####[facility] Bdushgngjp[address] [place], [place] [address]Dr. Farhat Leal Streptococcus Not detected Normal NOT DETECTED The [facility] Comment on above: Performed By: #### B CID2 ####[facility] Oefzfhkisw[address] [place], [place] [address]Dr. Farhat Leal Teodoro/B Resist. Gene Not Applicable Normal NOT DETECTED [facility] Comment on above: Performed By: #### B CID2 ####[facility] Rayyzbssud[address] [place], [place] [address]Dr. Farhat Leal VIM Resistant Gene Not Applicable Normal NOT DETECTED [facility] Comment on above: Performed By: #### B CID2 ####[facility] [address] [place] [address]Dr. Farhat Leal BNPon 11-23-2021 Natriuretic peptide B (Bld) [Mass/Vol] 92279.0 pg/mL Critically high <=1,800.0 [facility] Comment on above: Performed By: #### C MP, CMADM, BNP ####[facility] Ulxplvcwdw[address] [place] [address]Dr. Farhat Leal CARDIAC AMANDA ADMITon 022 CK [Catalytic activity/Vol] 41 U/L Normal 39-308 [facility] Comment on above: Performed By: #### C MP, CMADM, BNP ####[facility] Rlattsgoqk[address] [place] [address]Dr. Farhat Leal CK.MB [Mass/Vol] 0.98 ng/mL Normal <=3.60 [facility] Comment on above: Performed By: #### C MP, CMADM, BNP ####[facility] Wrrwjyyozo[address] [place] [address]Dr. Farhat Leal HSTROP 30.1 pg/mL Normal 4.0-76.1 [facility] Comment on above: Result Comment: CUT- OFF POINTS HAVE BEEN ESTABLISHED BASED ON THE FOURTH UNIVERSAL DEFINITIONS OF MYOCARDIALINFARCTION. THE UPPER REFERENCE LIMIT (URL) OF TROPONIN, DEFINED THE 99TH PERCENTILE OFcTnI DISTRIBUTION IN A REFERENCE POPULATION, HAS BEEN CONFIRMED THE DECISION THRESHOLDFOR HI DIAGNOSIS. Performed By: #### C MP, CMADM, BNP ####[facility] [address]evs[address] [place] [address]Dr. Farhat Leal VALERIA 160 ng/mL Critically high 16-96 [facility] Comment on above: Performed By: #### C MP, CMADM, BNP ####[facility] Uzmtgzrhab[address] [place] [address]Dr. Farhat Leal CBC AUTO DIFFon 11-23-2021 BASO # 0.0 103/ul Normal 0.0-0.1 [facility] Comment on above: Performed By: #### C BC ####[facility] [address]dw[address] [place] [id number]. Farhat Leal Basophils/100 WBC (Bld) 0.2 % Normal 0.2-2.0 [facility] Comment on above: Performed By: #### C BC ####[facility] Ekudtue[address] [place], [place] [address]Dr. Farhat Leal EO # 0.0 103/ul Normal 0.0-0.7 [facility] Comment on above: Performed By: #### C BC ####[facility] Jqzgzwjxtv[address] [place], [place] [address]Dr. Farhat Leal Eosinophils/100 WBC (Bld) 0.1 % Critically low 0.9-7.0 [facility] Comment on above: Performed By: #### C BC ####[facility] Vsodcmbolm[address] [place], [place] [address]Dr. Farhat Leal Erythrocyte distribution width (RBC) [Ratio] 13.4 % Normal 11.0-15.0 [facility] Comment on above: Performed By: #### C BC ####[facility] Yayfxyiluw[address] [place], [place] [address]Dr. Farhat Leal Hematocrit (Bld) [Volume fraction] 31.6 % Critically low 42.0-54.0 [facility] Comment on above: Performed By: #### C BC ####[facility] Uairbnyzlm[address] [place], [place] [address]Dr. Farhat Leal Hemoglobin (Bld) [Mass/Vol] 10.4 g/dL Critically low 14.0-18.0 [facility] Comment on above: Performed By: #### C BC ####[facility] Uluvwlvtqg7[address] [place], [place] [address]Dr. Farhat Leal IG # 0.11 10e3/ul Critically high 0.00-0.03 [facility] Comment on above: Performed By: #### C BC ####[facility] Ebcwgwwrsl364[address] [place], [place] [address]Dr. Farhat Leal IG % 0.7 % Critically high 0.0-0.5 [facility] Comment on above: Performed By: #### C BC ####[facility] Gizrwirnzv[address] [place] [address]Dr. Farhat Leal LYMPH # 0.5 103/ul Critically low 1.2-3.8 [facility] Comment on above: Performed By: #### C BC ####[facility] Ofqaftgjyx34[address] [place] [address]Dr. Farhat Leal Lymphocytes/100 WBC (Bld) 2.8 % Critically low 20.5-60.0 [facility] Comment on above: Performed By: #### C BC ####[facility] Zriiyhatey[address] [place] [address]Dr. Farhat Leal MANUAL DIFF REQ NO Normal [facility] Comment on above: Performed By: #### C BC ####[facility] Obuvyjrtvj4[address] [place], [place] [address]Dr. Farhat Leal MCH (RBC) [Entitic mass] 29.8 pg Normal 25.9-34.0 [facility] Comment on above: Performed By: #### C BC ####[facility] Gqrhahfnjz3[address] [place], [place] [address]Dr. Farhat Leal MCHC (RBC) [Mass/Vol] 32.9 g/dL Normal 29.9-35.2 [facility] Comment on above: Performed By: #### C BC ####[facility] Lyyrwdquvv[address] [place] [address]Dr. Farhat Leal MCV (RBC) [Entitic vol] 90.5 fL Normal 80.0-94.0 [facility] Comment on above: Performed By: #### C BC ####[facility] Yypzmndqgl[address] [place], [place] [address]Dr. Farhat Leal MONO # 1.3 103/ul Critically high 0.3-0.8 [facility] Comment on above: Performed By: #### C BC ####[facility] Xqjcfspggm17[address] [place] [address]Dr. Farhat Leal Monocytes/100 WBC (Bld) 8.3 % Normal 1.7-12.0 [facility] Comment on above: Performed By: #### C BC ####[facility] Tdyczfqxqd22[address] [place] [address]Dr. Farhat Leal NEUT # 13.9 103/ul Critically high 1.4-6.5 [facility] Comment on above: Performed By: #### C BC ####[facility] Dxhhexlgog[address] [place] [address]Dr. Farhat Leal Neutrophils/100 WBC (Bld) 87.9 % Critically high 43.0-75.0 [facility] Comment on above: Performed By: #### C BC ####[facility] Ybobnjbpgb1550 [place] [address]Dr. Farhat Leal Platelet mean volume (Bld) [Entitic vol] 9.3 fL Critically low 9.5-13.5 [facility] Comment on above: Performed By: #### C BC ####[facility] Hiocfjyral8[address] [place], [place] [address]Dr. Farhat Leal PLT 390 103/ul Normal 150-450 [facility] Comment on above: Performed By: #### C BC ####[facility] Jgkfbmwvka[address] [place], [place] [address]Dr. Farhat Leal RBC 3.49 106/ul Critically low 4.70-6.10 [facility] Comment on above: Performed By: #### C BC ####[facility] R[address]ajpynlw[address] [place] [id number]. Farhat Leal WBC 15.9 103/ul Critically high 4.0-11.0 [facility] Comment on above: Performed By: #### C BC ####[facility] Wfnvxixjzz[address] [place], [place] [address]Dr. Farhat Leal CT HEAD WO CONon 11-23-2021 CT HEAD WO CON Normal The [facility] CULTURE BLOODon 11-23-2021 Microscopic examination of blood, culture Culture Observations: NO GROWTH AT 5 DAYS. Normal [facility] Comment on above: Performed By: #### B LDCX2 ####[facility] Xetimdjwuv[address] [place], [place] [address]Dr. Farhat Leal Covid-19 PCR (CVDTB)on SARS-CoV-2 (COVID-19) RNA JOSH+probe Ql (Unsp spec) Not detected Normal NOT DETECTED [facility] Comment on above: Result [...] for this test is supported by the [place] of Health and Human Service's declaration that [...] be used). Performed By: #### C VDTBH ####[facility] Emcqnezjty04[address] [place], [place] [address]Dr. Farhat Leal LACTATE/LACTIC ACIDon 2021 Lactate [Moles/Vol] 1.3 mmol/L Normal 0.4-1.9 [facility] Comment on above: Performed By: #### L ACT ####[facility] Ivoalcpwjb[address] [place], [place] [address]Dr. Farhat Leal Lactate [Moles/Vol] 1.3 mmol/L Normal 0.4-1.9 [facility] Comment on above: Performed By: #### L ACT ####[facility] R[address]zvvpukh[address] [place], [place] [address]Dr. Farhat Leal POINT OF CARE GLUCOSEon Glucose [Mass/Vol] 252 mg/dL Critically high 74-106 [facility] Comment on above: Performed By: #### P OCGLUC ####[facility] X[address]zcjrhw[address] [place] [address]Dr. Farhat Leal PROF 14(COMP METB)on 022 Albumin [Mass/Vol] 1.6 g/dL Critically low 3.4-5.[address] [facility] Comment on above: Performed By: #### C MP, CMADM, BNP ####[facility] Wnxihxjots7[address] [place] [address]Dr. Farhat Leal Albumin/Globulin [Mass ratio] 0.4 {ratio} Normal [facility] Comment on above: Performed By: #### C MP, CMADM, BNP ####[facility] Uoztlzqjxw2[address] [place] [address]Dr. Farhat Leal ALP [Catalytic activity/Vol] 98 U/L Normal 46-116 [facility] Comment on above: Performed By: #### C MP, CMADM, BNP ####[facility] Heimchtcyc[address] [place] [address]Dr. Farhat Leal ALT [Catalytic activity/Vol] 52 U/L Normal 16-63 [facility] Comment on above: Performed By: #### C MP, CMADM, BNP ####[facility] Cwrpcdqfkn2[address] [place] [address]Dr. Farhat Leal Anion gap [Moles/Vol] 9.8 mmol/L Normal [facility] Comment on above: Performed By: #### C MP, CMADM, BNP ####[facility] Agrhyvrenw9[address] [place] [address]Dr. Farhat Leal AST [Catalytic activity/Vol] 122 U/L Critically high 15-37 [facility] Comment on above: Performed By: #### C MP, CMADM, BNP ####[facility] Aodsyjlzzp4206 [place] [address]Dr. Farhat Leal Bilirubin [Mass/Vol] 0.7 mg/dL Normal 0.2-1.0 [facility] Comment on above: Performed By: #### C MP, CMADM, BNP ####[facility] Yoqgcafmwc5654 [place] [address]Dr. Farhat Leal Calcium [Mass/Vol] 8.6 mg/dL Normal 8.5-10.1 [facility] Comment on above: Performed By: #### C MP, CMADM, BNP ####[facility] Ddgjyeajpg7835 [place] [address]Dr. Farhat Leal Chloride [Moles/Vol] 95 mmol/L Critically low 98-107 [facility] Comment on above: Performed By: #### C MP, CMADM, BNP ####[facility] Cxqsncddeh8069 [place] [address]Dr. Farhat Leal CO2 [Moles/Vol] 29.6 mmol/L Normal 21.0-32.0 [facility] Comment on above: Performed By: #### C MP, CMADM, BNP ####[facility] Soympuxfuj[address] [place], [place] [address]Dr. Farhat Leal Creatinine [Mass/Vol] 1.49 mg/dL Critically high 0.70-1.30 [facility] Comment on above: Performed By: #### C MP, CMADM, BNP ####[facility] Awlsmgcfgb[address] [place], [place] [address]Dr. Farhat Leal EGFR-AF MARTINIQUAIS 55 mL/min/1.73m2 Critically low >=60 [facility] Comment on above: Performed By: #### C MP, CMADM, BNP ####[facility] Ebwqtvquff[address] [place], [place] [address]Dr. Farhat Leal EGFR-NON AF MARTINIQUAIS 46 mL/min/1.73m2 Critically low >=60 [facility] Comment on above: Performed By: #### C MP, CMADM, BNP ####[facility] Qrmyizlpql8237 [place] [address]Dr. Farhat Leal Globulin (S) [Mass/Vol] 4.3 g/dL Normal [facility] Comment on above: Performed By: #### C MP, CMADM, BNP ####[facility] Uyktfafret[address] [place] [address]Dr. Farhat Leal Glucose [Mass/Vol] 213 mg/dL Critically high 74-106 [facility] Comment on above: Performed By: #### C MP, CMADM, BNP ####[facility] Gpndjtykbr075[address] [place] [address]Dr. Farhat Leal Potassium [Moles/Vol] 4.4 mmol/L Normal 3.5-5.1 [facility] Comment on above: Performed By: #### C MP, CMADM, BNP ####[facility] Lordurxejg[address] [place] [address]Dr. Farhat Leal Protein [Mass/Vol] 5.9 g/dL Critically low 6.4-8.[address] [facility] Comment on above: Performed By: #### C MP, CMADM, BNP ####[facility] Hlbuweffab[address] [place], [place] [address]Dr. Farhat Leal Sodium [Moles/Vol] 130 mmol/L Critically low 136-[address] [facility] Comment on above: Performed By: #### C MP, CMADM, BNP ####[facility] Zjooahgwhd[address] [place], [place] [address]Dr. Farhat Leal Urea nitrogen [Mass/Vol] 46.0 mg/dL Critically high 7.0-18.0 [facility] Comment on above: Performed By: #### C MP, CMADM, BNP ####[facility] Lmcmecpqnh[address] [place], [place] [address]Dr. Farhat Leal Urea nitrogen/Creatinine [Mass ratio] 30.9 mg/mg Normal [facility] Comment on above: Performed By: #### C MP, CMADM, BNP ####[facility] Mwidnfettr[address] [place], [place] [address]Dr. Madelynlorri Leal PROTIMEon 11-23-2021 INR Coag (PPP) [Relative time] 2.55 {INR} Normal [facility] Comment on above: Performed By: #### P TT, PT ####[facility] Dewodrmkum[address] [place], [place] [address]Dr. Madelynlorri Leal INR GUIDELINES SEE BELOW Normal [facility] Comment on above: Result Comment: MALINA RED INR: 2.0 - 3.0 CONDITIONS NOT LISTED BELOW 2.5 - 3.5 FOR PROSTHETIC HEART VALVE REPLACEMENT 2.5 - 3.5 RECURRENT THROMBOSIS Performed By: #### P TT, PT ####[facility] Zqdvgzidku5[address] [place] [address]Dr. Farhat Leal PT Coag (PPP) [Time] 25.9 s Critically high 9.0-11.6 [facility] Comment on above: Performed By: #### P TT, PT ####[facility] Zvecanukhu[address] [place], [place] [address]Dr. Farhat Leal PTTon 11-23-2021 aPTT Coag (Bld) [Time] 39.9 s Critically high 22.3-36. 2 [facility] Comment on above: Performed By: #### P TT, PT ####[facility] Dokqlzikiu2[address] [place], [place] [address]Dr. Farhat Leal XR CHEST 1 Von 11-23-2021 XR CHEST 1 V Normal [facility] XR HEEL RT 2Von 11-23-2021 XR HEEL RT 2V Normal The [facility] XR FOOT RT MIN 3 VIEWSon XR FOOT RT MIN 3 VIEWS Normal [facility] US ARTERY LEG RTon US ARTERY LEG RT Normal [facility] CBC AUTO DIFFon 09-24-2021 BASO # 0.1 103/ul Normal 0.0-0.1 [facility] Comment on above: Performed By: #### C BC ####[facility] Plzgucmovm[address] [place], [place] [address]Dr. Madelynlorri Leal Basophils/100 WBC (Bld) 0.7 % Normal 0.2-2.0 [facility] Comment on above: Performed By: #### C BC ####[facility] Jlcacbnibw[address] [place], [place] [address]Dr. Farhat Leal EO # 0.3 103/ul Normal 0.0-0.7 [facility] Comment on above: Performed By: #### C BC ####[facility] Cfcciudkpt[address] [place], [place] [address]Dr. Madelynlorri Leal Eosinophils/100 WBC (Bld) 3.9 % Normal 0.9-7.0 [facility] Comment on above: Performed By: #### C BC ####[facility] Sfzkhlxmkm[address] [place] [address]Dr. Farhat Leal Erythrocyte distribution width (RBC) [Ratio] 12.6 % Normal 11.0-15.0 [facility] Comment on above: Performed By: #### C BC ####[facility] Aulvzxidal5[address] [place] [address]Dr. Farhat Leal Hematocrit (Bld) [Volume fraction] 38.9 % Critically low 42.0-54.0 [facility] Comment on above: Performed By: #### C BC ####[facility] Ptdzaujkjq[address] [place], [place] [address]Dr. Farhat Leal Hemoglobin (Bld) [Mass/Vol] 12.8 g/dL Critically low 14.0-18.0 [facility] Comment on above: Performed By: #### C BC ####[facility] Bzzbvisegr6[address] [place], [place] [address]Dr. Farhat Leal IG # 0.10 10e3/ul Critically high 0.00-0.03 [facility] Comment on above: Performed By: #### C BC ####[facility] H[address]lxlvpyg7[address] [place], [place] [address]Dr. Farhat Leal IG % 1.2 % Critically high 0.0-0.5 [facility] Comment on above: Performed By: #### C BC ####[facility] Wfhwlimgys[address] [place], [place] [address]Dr. Farhat Leal LYMPH # 2.1 103/ul Normal 1.2-3.8 [facility] Comment on above: Performed By: #### C BC ####[facility] Vrfssdnnmi[address] [place], [place] [address]Dr. Farhat Leal Lymphocytes/100 WBC (Bld) 25.9 % Normal 20.5-60.0 [facility] Comment on above: Performed By: #### C BC ####[facility] Pkezapgcnd12[address] [place], [place] [address]Dr. Farhat Leal MANUAL DIFF REQ NO Normal [facility] Comment on above: Performed By: #### C BC ####[facility] [address]vzxufkatr7[address] [place] [id number]. Farhat Leal MCH (RBC) [Entitic mass] 31.1 pg Normal 25.9-34.0 [facility] Comment on above: Performed By: #### C BC ####[facility] Ojylgxnuun14[address] [place] [id number]. Farhat Leal MCHC (RBC) [Mass/Vol] 32.9 g/dL Normal 29.9-35.2 [facility] Comment on above: Performed By: #### C BC ####[facility] Gzqijivdvn[address] [place] [address]Dr. Farhat Elvis MCV (RBC) [Entitic vol] 94.6 fL Critically high 80.0-94.0 [facility] Comment on above: Performed By: #### C BC ####[facility] Pviogbiwpu[address] [place], [place] [address]Dr. Farhat Leal MONO # 1.2 103/ul Critically high 0.3-0.8 [facility] Comment on above: Performed By: #### C BC ####[facility] Kxnxmmrsum4[address] [place], [place] [address]Dr. Madelynlorri Leal Monocytes/100 WBC (Bld) 14.1 % Critically high 1.7-12.0 [facility] Comment on above: Performed By: #### C BC ####[facility] Ggfqwlmnge[address] [place], [place] [address]Dr. Farhat Leal NEUT # 4.4 103/ul Normal 1.4-6.5 [facility] Comment on above: Performed By: #### C BC ####[facility] [address]pbvczh[address] [place], [place] [address]Dr. Madelynlorri Leal Neutrophils/100 WBC (Bld) 54.2 % Normal 43.0-75.0 [facility] Comment on above: Performed By: #### C BC ####[facility] Bvbiinnwpb[address] [place], [place] [address]Dr. Farhat Leal Platelet mean volume (Bld) [Entitic vol] 9.9 fL Normal 9.5-13.5 [facility] Comment on above: Performed By: #### C BC ####[facility] J[address]vrpcpro8668 [place] [id number]. Farhat Elvis PLT 224 103/ul Normal 150-450 [facility] Comment on above: Performed By: #### C BC ####[facility] Ydyfyndrcm8842 [place] [id number]. Farhat Elvis RBC 4.11 106/ul Critically low 4.70-6.10 [facility] Comment on above: Performed By: #### C BC ####[facility] Tinpxydmsh6765 [place] [phone]. Farhat Elvis WBC 8.2 103/ul Normal 4.0-11.0 [facility] Comment on above: Performed By: #### C BC ####[facility] Nufgdubdeo64[address] [place] [address]Dr. Farhat Leal PROF CHEM 8 (BAS METB)on Anion gap [Moles/Vol] 9.6 mmol/L Normal [facility] Comment on above: Performed By: #### B MP ####[facility] Xwprdlmllt7116 [place] [phone]. Farhat Leal Calcium [Mass/Vol] 8.6 mg/dL Normal 8.5-10.1 [facility] Comment on above: Performed By: #### B MP ####[facility] Hqmrtvpnxb0633 [place] [phone]. Farhat Leal Chloride [Moles/Vol] 94 mmol/L Critically low 98-107 [facility] Comment on above: Performed By: #### B MP ####[facility] Zkgysmbhti2656 [place] [phone] Leal CO2 [Moles/Vol] 28.1 mmol/L Normal 21.0-32.0 [facility] Comment on above: Performed By: #### B MP ####[facility] Hmwuypqmvj7684 [place] [phone] Leal Creatinine [Mass/Vol] 1.91 mg/dL Critically high 0.70-1.30 [facility] Comment on above: Performed By: #### B MP ####[facility] Xnmsbetpwy3916 [place] [phone]. Farhat Leal EGFR-AF MARTINIQUAIS 42 mL/min/1.73m2 Critically low >=60 [facility] Comment on above: Performed By: #### B MP ####[facility] Ljeaxxikrd5523 [place] [phone]. Farhat Leal EGFR-NON AF MARTINIQUAIS 34 mL/min/1.73m2 Critically low >=60 [facility] Comment on above: Performed By: #### B MP ####[facility] Lmxofqnlkn4215 [place] [address]Dr. Farhat Leal Glucose [Mass/Vol] 314 mg/dL Critically high 74-106 T [facility] Comment on above: Performed By: #### B MP ####[facility] Pvousdzwqs2953 [place] [address]Dr. Farhat Leal Potassium [Moles/Vol] 4.7 mmol/L Normal 3.5-5.1 [facility] Comment on above: Performed By: #### B MP ####[facility] Tfdhks[address]cs[address] [place], [place] [address]Dr. Farhat Leal Sodium [Moles/Vol] 127 mmol/L Critically low 136-[address] [facility] Comment on above: Performed By: #### B MP ####[facility] Mfcsaivkcv9480 [place] [phone]. Farhat Leal Urea nitrogen [Mass/Vol] 79.0 mg/dL Critically high 7.0-18.0 [facility] Comment on above: Result Comment: repe ated Performed By: #### B MP ####[facility] Weow[address]hurn[address] [place], [place] [address]Dr. Farhat Leal Urea nitrogen/Creatinine [Mass ratio] 41.4 mg/mg Normal [facility] Comment on above: Performed By: #### B MP ####[facility] Fwarsocbea[address] [place], [place] [address]Dr. Farhat Leal PTT HEPARIN MONITORon 2021 aPTT Coag (Bld) [Time] 42.7 s Normal 39.5-54.2 [facility] Comment on above: Performed By: #### P TTHEP ####[facility] Kl[address]qrsxfei[address] [place], [place] [address]Dr. Farhat Leal aPTT Coag (Bld) [Time] 56.7 s Critically high 39.5-54. 2 [facility] Comment on above: Performed By: #### P TTHEP ####[facility] Yokunwejwl[address] [place], [place] [address]Dr. Farhat Elvis CBC AUTO DIFFon 09-23-2021 BASO # 0.1 103/ul Normal 0.0-0.1 [facility] Comment on above: Performed By: #### C BC ####[facility] Eiexmxvcoh[address] [place], [place] [address]Dr. Farhat Leal Basophils/100 WBC (Bld) 0.6 % Normal 0.2-2.0 [facility] Comment on above: Performed By: #### C BC ####[facility] Tigjvfrlvy[address] [place] [id number]. Farhat Leal EO # 0.2 103/ul Normal 0.0-0.7 [facility] Comment on above: Performed By: #### C BC ####[facility] Wfrwumuzxe[address] [place], [place] [address]Dr. Farhat Leal Eosinophils/100 WBC (Bld) 2.6 % Normal 0.9-7.0 [facility] Comment on above: Performed By: #### C BC ####[facility] Lgvbusyune[address] [place], [place] [address]Dr. Farhat Leal Erythrocyte distribution width (RBC) [Ratio] 12.4 % Normal 11.0-15.0 [facility] Comment on above: Performed By: #### C BC ####[facility] Xsjtszmrvq2[address] [place], [place] [address]Dr. Farhat Leal Hematocrit (Bld) [Volume fraction] 38.4 % Critically low 42.0-54.0 [facility] Comment on above: Performed By: #### C BC ####[facility] Ovhdncoogj[address] [place] [id number]. Farhat Leal Hemoglobin (Bld) [Mass/Vol] 12.8 g/dL Critically low 14.0-18.0 [facility] Comment on above: Performed By: #### C BC ####[facility] Unjvdumxzd5387 [place] [id number]. Farhat Leal IG # 0.06 10e3/ul Critically high 0.00-0.03 [facility] Comment on above: Performed By: #### C BC ####[facility] Rkoqwtecxd64[address] [place] [address]Dr. Farhat Leal IG % 0.8 % Critically high 0.0-0.5 [facility] Comment on above: Performed By: #### C BC ####[facility] Ilopfyrlsd[address] [place] [address]Dr. Farhat Leal LYMPH # 1.5 103/ul Normal 1.2-3.8 [facility] Comment on above: Performed By: #### C BC ####[facility] Cuiftygnfq28[address] [place] [address]Dr. Farhat Leal Lymphocytes/100 WBC (Bld) 19.7 % Critically low 20.5-60.0 [facility] Comment on above: Performed By: #### C BC ####[facility] Yxphvpvrrk45[address] [place] [address]Dr. Farhat Leal MANUAL DIFF REQ NO Normal [facility] Comment on above: Performed By: #### C BC ####[facility] Bwvccdjxrr9759 [place] [id number]. Farhat Leal MCH (RBC) [Entitic mass] 31.6 pg Normal 25.9-34.0 [facility] Comment on above: Performed By: #### C BC ####[facility] Ogvlbycyes3672 [place] [id number]. Farhat Leal MCHC (RBC) [Mass/Vol] 33.3 g/dL Normal 29.9-35.2 [facility] Comment on above: Performed By: #### C BC ####[facility] Xkgotckdmv2810 [place] [id number]. Farhat Leal MCV (RBC) [Entitic vol] 94.8 fL Critically high 80.0-94.0 [facility] Comment on above: Performed By: #### C BC ####[facility] Tfuawewcai5369 [place] [address]Dr. Farhat Leal MONO # 1.0 103/ul Critically high 0.3-0.8 [facility] Comment on above: Performed By: #### C BC ####[facility] Auntiqwrzt2373 [place] [address]Dr. Farhat Leal Monocytes/100 WBC (Bld) 13.0 % Critically high 1.7-12.0 [facility] Comment on above: Performed By: #### C BC ####[facility] Bzxpbxuhet97[address] [place], [place] [address]Dr. Farhat Leal NEUT # 4.9 103/ul Normal 1.4-6.5 [facility] Comment on above: Performed By: #### C BC ####[facility] Dvwascfnej[address] [place], [place] [id number]. Farhat Leal Neutrophils/100 WBC (Bld) 63.3 % Normal 43.0-75.0 [facility] Comment on above: Performed By: #### C BC ####[facility] Gaeiyzvaxj[address] [place], [place] [address]Dr. Farhat Leal Platelet mean volume (Bld) [Entitic vol] 10.7 fL Normal 9.5-13.5 [facility] Comment on above: Performed By: #### C BC ####[facility] Yqvmjikdps7744 [place] [id number]. Farhat Leal PLT 205 103/ul Normal 150-450 [facility] Comment on above: Performed By: #### C BC ####[facility] Brosyrvkqn4547 [place] [phone]. Farhat Leal RBC 4.05 106/ul Critically low 4.70-6.10 [facility] Comment on above: Performed By: #### C BC ####[facility] Htelkqkawu9620 [place] [id number]. Madelynlorri Elvis WBC 7.7 103/ul Normal 4.0-11.0 [facility] Comment on above: Performed By: #### C BC ####[facility] Xbxvrytrds3537 [place] [phone]. Farhat Leal PROF CHEM 8 (BAS METB)on Anion gap [Moles/Vol] 15.5 mmol/L Normal [facility] Comment on above: Performed By: #### B MP ####[facility] Uyeaemkyrw2963 [place] [address]Dr. Farhat Leal Calcium [Mass/Vol] 9.1 mg/dL Normal 8.5-10.1 [facility] Comment on above: Performed By: #### B MP ####[facility] Nccbuhaahm[address] [place], [place] [address]Dr. Farhat Leal Chloride [Moles/Vol] 92 mmol/L Critically low 98-107 [facility] Comment on above: Performed By: #### B MP ####[facility] Fugutvhozo6092[address] [place], [place] [address]Dr. Farhat Leal CO2 [Moles/Vol] 28.5 mmol/L Normal 21.0-32.0 [facility] Comment on above: Performed By: #### B MP ####[facility] Ytpaxhmdgh5532 [place] [address]Dr. Farhat Leal Creatinine [Mass/Vol] 1.84 mg/dL Critically high 0.70-1.30 [facility] Comment on above: Performed By: #### B MP ####[facility] Dqqnvhuzoq[address] [place], [place] [address]Dr. Farhat Leal EGFR-AF MARTINIQUAIS 44 mL/min/1.73m2 Critically low >=60 [facility] Comment on above: Performed By: #### B MP ####[facility] Hkssdhafzg9543 [place] [address]Dr. Farhat Leal EGFR-NON AF MARTINIQUAIS 36 mL/min/1.73m2 Critically low >=60 [facility] Comment on above: Performed By: #### B MP ####[facility] Gritkrmbpa8069 [place] [address]Dr. Madelynlorri Leal Glucose [Mass/Vol] 267 mg/dL Critically high 74-106 T [facility] Comment on above: Performed By: #### B MP ####[facility] Dqqowjyprs40[address] [place], [place] [address]Dr. Farhat Leal Potassium [Moles/Vol] 5.0 mmol/L Normal 3.5-5.1 [facility] Comment on above: Performed By: #### B MP ####[facility] Zypflhovut5826[address] [place], [place] [address]Dr. Farhat Leal Sodium [Moles/Vol] 131 mmol/L Critically low 136-[address] [facility] Comment on above: Performed By: #### B MP ####[facility] Czzkjcwrub5035[address] [place], [place] [address]Dr. Farhat Leal Urea nitrogen [Mass/Vol] 76.0 mg/dL Critically high 7.0-18.0 [facility] Comment on above: Performed By: #### B MP ####[facility] Nzabwgneuk89[address] [place], [place] [address]Dr. Farhat Leal Urea nitrogen/Creatinine [Mass ratio] 41.3 mg/mg Normal [facility] Comment on above: Performed By: #### B MP ####[facility] Lwawydrfui[address] [place], [place] [address]Dr. Farhat Leal PTT HEPARIN MONITORon 2021 aPTT Coag (Bld) [Time] 57.2 s Critically high 39.5-54. 2 [facility] Comment on above: Performed By: #### P TTHEP ####[facility] Docmbumzxb2074[address] [place], [place] [address]Dr. Farhat Leal aPTT Coag (Bld) [Time] 74.7 s Critically high 39.5-54. 2 [facility] Comment on above: Result Comment: repe ated Performed By: #### P TTHEP ####[facility] Ppcijexean05[address] [place], [place] [address]Dr. Madelynlorri Leal aPTT Coag (Bld) [Time] 45.5 s Normal 39.5-54.2 [facility] Comment on above: Performed By: #### P TTHEP ####[facility] Mjhmfmzrpv01[address] [place], [place] [address]Dr. Farhat Elvis CBC AUTO DIFFon 09-22-2021 BASO # 0.1 103/ul Normal 0.0-0.1 [facility] Comment on above: Performed By: #### C BC ####[facility] Zfprjpjslc63[address] [place], [place] [address]Dr. Farhat Leal Basophils/100 WBC (Bld) 0.7 % Normal 0.2-2.0 [facility] Comment on above: Performed By: #### C BC ####[facility] Wdiabkrsxv[address] [place], [place] [address]Dr. Farhat Leal EO # 0.3 103/ul Normal 0.0-0.7 [facility] Comment on above: Performed By: #### C BC ####[facility] Tfxqtvhgij7552[address] [place], [place] [address]Dr. Farhat Leal Eosinophils/100 WBC (Bld) 3.2 % Normal 0.9-7.0 [facility] Comment on above: Performed By: #### C BC ####[facility] Yuxiidzxid[address] [place], [place] [address]Dr. Farhat Leal Erythrocyte distribution width (RBC) [Ratio] 12.5 % Normal 11.0-15.0 [facility] Comment on above: Performed By: #### C BC ####[facility] Lqvhjrqfqn3324[address] [place], [place] [address]Dr. Farhat Leal Hematocrit (Bld) [Volume fraction] 40.5 % Critically low 42.0-54.0 [facility] Comment on above: Performed By: #### C BC ####[facility] Ahrbttspnc17[address] [place], [place] [address]Dr. Farhat Leal Hemoglobin (Bld) [Mass/Vol] 13.4 g/dL Critically low 14.0-18.0 [facility] Comment on above: Performed By: #### C BC ####[facility] Gispuntooe5692 [place] [phone]. Farhat Leal IG # 0.11 10e3/ul Critically high 0.00-0.03 [facility] Comment on above: Performed By: #### C BC ####[facility] Mjywfatizc1486 [place] [phone]. Farhat Elvis IG % 1.3 % Critically high 0.0-0.5 [facility] Comment on above: Performed By: #### C BC ####[facility] Cawoxihkvb4078 [place] [address]Dr. Madelynlorri Elvis LYMPH # 1.7 103/ul Normal 1.2-3.8 [facility] Comment on above: Performed By: #### C BC ####[facility] Vmolhtbbhh8466 [place] [address]DrSkylar Leal Lymphocytes/100 WBC (Bld) 19.6 % Critically low 20.5-60.0 [facility] Comment on above: Performed By: #### C BC ####[facility] Daxeveutjn0688 [place] [phone] Leal MANUAL DIFF REQ NO Normal [facility] Comment on above: Performed By: #### C BC ####[facility] Tnetgjabva0334 [place] [phone]. Farhat Leal MCH (RBC) [Entitic mass] 31.1 pg Normal 25.9-34.0 [facility] Comment on above: Performed By: #### C BC ####[facility] Thfgbpnwyl7117 [place] [phone]. Farhat Elvis MCHC (RBC) [Mass/Vol] 33.1 g/dL Normal 29.9-35.2 [facility] Comment on above: Performed By: #### C BC ####[facility] Bghwrovakt7477 [place] [address]Dr. Farhat Leal MCV (RBC) [Entitic vol] 94.0 fL Normal 80.0-94.0 [facility] Comment on above: Performed By: #### C BC ####[facility] Gdcikexsbe1164 [place] [address]Dr. Farhat Leal MONO # 1.1 103/ul Critically high 0.3-0.8 [facility] Comment on above: Performed By: #### C BC ####[facility] Hkzgzfrgyb2210 [place] [address]Dr. Farhat Leal Monocytes/100 WBC (Bld) 12.7 % Critically high 1.7-12.0 [facility] Comment on above: Performed By: #### C BC ####[facility] Heoxukizkc8443 [place] [address]Dr. Farhat Leal NEUT # 5.3 103/ul Normal 1.4-6.5 [facility] Comment on above: Performed By: #### C BC ####[facility] Tnyuiggvgq3900 [place] [address]Dr. Farhat Leal Neutrophils/100 WBC (Bld) 62.5 % Normal 43.0-75.0 [facility] Comment on above: Performed By: #### C BC ####[facility] Ucfgmlbull8059 [place] [address]Dr. Farhat Leal Platelet mean volume (Bld) [Entitic vol] 10.1 fL Normal 9.5-13.5 [facility] Comment on above: Performed By: #### C BC ####[facility] Vvwueinbej2015 [place] [address]Dr. Farhat Leal PLT 220 103/ul Normal 150-450 [facility] Comment on above: Performed By: #### C BC ####[facility] Msiheyrrha3859 [place] [phone]. Farhat Leal RBC 4.31 106/ul Critically low 4.70-6.10 [facility] Comment on above: Performed By: #### C BC ####[facility] Neuyspqgre3581 [place] [phone]. Farhat Leal WBC 8.4 103/ul Normal 4.0-11.0 [facility] Comment on above: Performed By: #### C BC ####[facility] Gfazpiilzb2443 [place] [phone]. Farhat Leal PROF CHEM 8 (BAS METB)on Anion gap [Moles/Vol] 15.5 mmol/L Normal Th [facility] Comment on above: Performed By: #### B MP ####[facility] Yzmjbdwqam5648 [place] [phone]. Farhat Leal Calcium [Mass/Vol] 8.9 mg/dL Normal 8.5-10.1 [facility] Comment on above: Performed By: #### B MP ####[facility] Uasifvymdz5265 [place] [address]Dr. Farhat Leal Chloride [Moles/Vol] 92 mmol/L Critically low 98-107 [facility] Comment on above: Performed By: #### B MP ####[facility] Ghohpmlzhl85[address] [place], [place] [address]Dr. Farhat Leal CO2 [Moles/Vol] 25.7 mmol/L Normal 21.0-32.0 [facility] Comment on above: Performed By: #### B MP ####[facility] Vokwxpjkes[address] [place], [place] [address]Dr. Farhat Leal Creatinine [Mass/Vol] 1.85 mg/dL Critically high 0.70-1.30 [facility] Comment on above: Performed By: #### B MP ####[facility] Yrtqmxihuz2272 [place] [address]Dr. Farhat Leal EGFR-AF MARTINIQUAIS 43 mL/min/1.73m2 Critically low >=60 [facility] Comment on above: Performed By: #### B MP ####[facility] Prhhrfudrq5437 [place] [phone]. Farhat Leal EGFR-NON AF MARTINIQUAIS 36 mL/min/1.73m2 Critically low >=60 [facility] Comment on above: Performed By: #### B MP ####[facility] Iaucaumkyj4121 [place] [phone]. Farhat Leal Glucose [Mass/Vol] 410 mg/dL Critically high 74-106 [facility] Comment on above: Performed By: #### B MP ####[facility] Oblydakckl[address] [place], [place] [address]Dr. Madelynlorri Leal Potassium [Moles/Vol] 5.2 mmol/L Critically high 3.5-5.1 [facility] Comment on above: Performed By: #### B MP ####[facility] Fartpdgagb9[address] [place], [place] [address]Dr. Madelynlorri Elvis Sodium [Moles/Vol] 128 mmol/L Critically low 136-[address] [facility] Comment on above: Performed By: #### B MP ####[facility] Daefybilff7[address] [place], [place] [address]Dr. Madelynlorri Elvis Urea nitrogen [Mass/Vol] 75.0 mg/dL Critically high 7.0-18.0 [facility] Comment on above: Performed By: #### B MP ####[facility] Msfozxlcvw746[address] [place], [place] [address]Dr. Farhat Leal Urea nitrogen/Creatinine [Mass ratio] 40.5 mg/mg Normal [facility] Comment on above: Performed By: #### B MP ####[facility] Alkmumqfnw6387[address] [place], [place] [address]Dr. Madelynlorri Elvis PTT HEPARIN MONITORon 2021 aPTT Coag (Bld) [Time] 51.2 s Normal 39.5-54.[address] [facility] Comment on above: Performed By: #### P TTHEP ####[facility] Wdgwzwwqcz747[address] [place], [place] [address]Dr. Madelynlorri Elvis aPTT Coag (Bld) [Time] 55.6 s Critically high 39.5-54. 2 [facility] Comment on above: Performed By: #### P TTHEP ####[facility] Adxknmnbbn3873[address] [place], [place] [address]Dr. Farhat Leal aPTT Coag (Bld) [Time] 46.1 s Normal 39.5-54.2 [facility] Comment on above: Performed By: #### P TTHEP ####[facility] Oqkfazaulu4305[address] [place], [place] [address]Dr. Madelynlorri Leal aPTT Coag (Bld) [Time] 53.8 s Normal 39.5-54.2 [facility] Comment on above: Performed By: #### P TTHEP ####[facility] Xyandcicqb4699[address] [place], [place] [address]Dr. Madelynlorri Leal CBC AUTO DIFFon 09-21-2021 BASO # 0.1 103/ul Normal 0.0-0.1 [facility] Comment on above: Performed By: #### C BC ####[facility] Lhkfxjkerv8932[address] [place], [place] [address]Dr. Farhat Leal Basophils/100 WBC (Bld) 0.8 % Normal 0.2-2.0 [facility] Comment on above: Performed By: #### C BC ####[facility] Myqbxmqsit[address] [place], [place] [address]Dr. Farhat Leal EO # 0.4 103/ul Normal 0.0-0.7 [facility] Comment on above: Performed By: #### C BC ####[facility] Yfvcoelgez4697[address] [place], [place] [address]Dr. Farhat Leal Eosinophils/100 WBC (Bld) 4.3 % Normal 0.9-7.0 [facility] Comment on above: Performed By: #### C BC ####[facility] Cpokfkcerk2706[address] [place], [place] [address]Dr. Farhat Leal Erythrocyte distribution width (RBC) [Ratio] 12.5 % Normal 11.0-15.0 [facility] Comment on above: Performed By: #### C BC ####[facility] Czvayaypup[address] [place], [place] [address]Dr. Farhat Leal Hematocrit (Bld) [Volume fraction] 40.8 % Critically low 42.0-54.0 [facility] Comment on above: Performed By: #### C BC ####[facility] Jhjcolkely7[address] [place], [place] [address]Dr. Farhat Leal Hemoglobin (Bld) [Mass/Vol] 13.5 g/dL Critically low 14.0-18.0 [facility] Comment on above: Performed By: #### C BC ####[facility] Ugdzrksiax5496 [place] [phone]. Madelynlorri Elvis IG # 0.10 10e3/ul Critically high 0.00-0.03 [facility] Comment on above: Performed By: #### C BC ####[facility] Wlzyowmfmd4536 [place] [phone]. Farhat Leal IG % 1.2 % Critically high 0.0-0.5 [facility] Comment on above: Performed By: #### C BC ####[facility] Zscukadutm0861 [place] [address]Dr. Farhat Leal LYMPH # 1.3 103/ul Normal 1.2-3.8 [facility] Comment on above: Performed By: #### C BC ####[facility] Muswkiupeu8845 [place] [address]DrSkylar Leal Lymphocytes/100 WBC (Bld) 15.4 % Critically low 20.5-60.0 [facility] Comment on above: Performed By: #### C BC ####[facility] Jfbvtughpv3242 [place] [address]Dr. Farhat Leal MANUAL DIFF REQ NO Normal [facility] Comment on above: Performed By: #### C BC ####[facility] Xfenifnwtz6700 [place] [address]Dr. Farhat Leal MCH (RBC) [Entitic mass] 31.0 pg Normal 25.9-34.0 [facility] Comment on above: Performed By: #### C BC ####[facility] Rlrzmfktsw3846 [place] [phone]. Farhat Leal MCHC (RBC) [Mass/Vol] 33.1 g/dL Normal 29.9-35.2 [facility] Comment on above: Performed By: #### C BC ####[facility] Jhcxojwuzp7800 [place] [address]Dr. Farhat Leal MCV (RBC) [Entitic vol] 93.8 fL Normal 80.0-94.0 [facility] Comment on above: Performed By: #### C BC ####[facility] Ljgabbvxkv8289 [place] [phone]. Farhat Leal MONO # 1.2 103/ul Critically high 0.3-0.8 [facility] Comment on above: Performed By: #### C BC ####[facility] Vanhqriona9957 [place] [address]Dr. Farhat Leal Monocytes/100 WBC (Bld) 13.6 % Critically high 1.7-12.0 [facility] Comment on above: Performed By: #### C BC ####[facility] Volkaqlkht1203 [place] [phone]. Farhat Leal NEUT # 5.5 103/ul Normal 1.4-6.5 [facility] Comment on above: Performed By: #### C BC ####[facility] Jivoidhgjj0567 [place] [address]Dr. Farhat Leal Neutrophils/100 WBC (Bld) 64.7 % Normal 43.0-75.0 [facility] Comment on above: Performed By: #### C BC ####[facility] Gvxxkhacam1195 [place] [address]Dr. Farhat Leal Platelet mean volume (Bld) [Entitic vol] 9.8 fL Normal 9.5-13.5 [facility] Comment on above: Performed By: #### C BC ####[facility] Pxoirvtmyq5266 [place] [address]Dr. Farhat Leal PLT 206 103/ul Normal 150-450 [facility] Comment on above: Performed By: #### C BC ####[facility] Xguttjapnx7120 [place] [phone]. Farhat Leal RBC 4.35 106/ul Critically low 4.70-6.10 [facility] Comment on above: Performed By: #### C BC ####[facility] Uadvekzswf6213 [place] [phone]. Farhat Leal WBC 8.4 103/ul Normal 4.0-11.0 [facility] Comment on above: Performed By: #### C BC ####[facility] Lizqhnrkah8932 [place] [address]Dr. Farhat Leal PROF CHEM 8 (BAS METB)on Anion gap [Moles/Vol] 12.3 mmol/L Normal Th [facility] Comment on above: Performed By: #### B MP ####[facility] Tfzvvztllh6[address] [place], [place] [address]Dr. Farhat Leal Calcium [Mass/Vol] 8.6 mg/dL Normal 8.5-10.1 [facility] Comment on above: Performed By: #### B MP ####[facility] Tovcixujle[address] [place], [place] [address]Dr. Farhat Leal Chloride [Moles/Vol] 94 mmol/L Critically low 98-107 [facility] Comment on above: Performed By: #### B MP ####[facility] Fthroxuqqj8592[address] [place], [place] [address]Dr. Farhat Leal CO2 [Moles/Vol] 30.8 mmol/L Normal 21.0-32.0 [facility] Comment on above: Performed By: #### B MP ####[facility] Aaovurceyf0959[address] [place], [place] [address]Dr. Farhat Leal Creatinine [Mass/Vol] 1.99 mg/dL Critically high 0.70-1.30 [facility] Comment on above: Performed By: #### B MP ####[facility] Ojpmtrozge[address] [place], [place] [address]Dr. Farhat Leal EGFR-AF MARTINIQUAIS 40 mL/min/1.73m2 Critically low >=60 [facility] Comment on above: Performed By: #### B MP ####[facility] Cicpwhavlw8465[address] [place], [place] [address]Dr. Farhat Leal EGFR-NON AF MARTINIQUAIS 33 mL/min/1.73m2 Critically low >=60 [facility] Comment on above: Performed By: #### B MP ####[facility] Yvhjtmlotf[address] [place], [place] [address]Dr. Farhat Leal Glucose [Mass/Vol] 264 mg/dL Critically high 74-106 T [facility] Comment on above: Performed By: #### B MP ####[facility] Ieyzvbtpve727[address] [place], [place] [address]Dr. Farhat Leal Potassium [Moles/Vol] 5.1 mmol/L Normal 3.5-5.1 [facility] Comment on above: Performed By: #### B MP ####[facility] Pqtmqsrxes8037[address] [place], [place] [address]Dr. Farhat Leal Sodium [Moles/Vol] 132 mmol/L Critically low 136-[address] [facility] Comment on above: Performed By: #### B MP ####[facility] Kliuqirelz[address] [place], [place] [address]Dr. Farhat Leal Urea nitrogen [Mass/Vol] 72.0 mg/dL Critically high 7.0-18.0 [facility] Comment on above: Performed By: #### B MP ####[facility] Katurmzpad87[address] [place], [place] [address]Dr. Farhat Leal Urea nitrogen/Creatinine [Mass ratio] 36.2 mg/mg Normal [facility] Comment on above: Performed By: #### B MP ####[facility] Kurovbxvqw5187[address] [place], [place] [address]Dr. Farhat Leal PTT HEPARIN MONITORon 2021 aPTT Coag (Bld) [Time] 45.3 s Normal 39.5-54.2 [facility] Comment on above: Performed By: #### P TTHEP ####[facility] Bamjsieelu[address] [place], [place] [address]Dr. Farhat Leal aPTT Coag (Bld) [Time] 68.0 s Critically high 39.5-54. 2 [facility] Comment on above: Performed By: #### P TTHEP ####[facility] Tpzicssf[address] [place], [place] [address]Dr. Farhat Leal aPTT Coag (Bld) [Time] 69.4 s Critically high 39.5-54. 2 [facility] Comment on above: Performed By: #### P TTHEP ####[facility] Xfmtnpjqkl6166 [place] [id number]. Farhat Elvis aPTT Coag (Bld) [Time] 53.5 s Normal 39.5-54.[address] [facility] Comment on above: Performed By: #### P TTHEP ####[facility] Xuoyeavpwz[address] [place], [place] [address]Dr. Madelynlorri Elvis aPTT Coag (Bld) [Time] 126.9 s Critically high 39.5-54. 2 [facility] Comment on above: Performed By: #### P TTHEP ####[facility] Svcrpyqyzv[address] [place], [place] [address]Dr. Farhat Leal CBC AUTO DIFFon 09-20-2021 BASO # 0.1 103/ul Normal 0.0-0.1 [facility] Comment on above: Performed By: #### C BC ####[facility] Liqejqpxac[address] [place], [place] [address]Dr. Farhat Leal Basophils/100 WBC (Bld) 0.7 % Normal 0.2-2.0 [facility] Comment on above: Performed By: #### C BC ####[facility] Sitszyqahs7[address] [place], [place] [address]Dr. Farhat Leal EO # 0.2 103/ul Normal 0.0-0.7 [facility] Comment on above: Performed By: #### C BC ####[facility] Duuzurjhoy[address] [place], [place] [address]Dr. Farhat Leal Eosinophils/100 WBC (Bld) 3.2 % Normal 0.9-7.0 [facility] Comment on above: Performed By: #### C BC ####[facility] Kjzpefekka[address] [place], [place] [address]Dr. Farhat Leal Erythrocyte distribution width (RBC) [Ratio] 12.4 % Normal 11.0-15.0 [facility] Comment on above: Performed By: #### C BC ####[facility] Yzhkopdrdd8[address] [place], [place] [address]Dr. Farhat Leal Hematocrit (Bld) [Volume fraction] 40.1 % Critically low 42.0-54.0 [facility] Comment on above: Performed By: #### C BC ####[facility] Fdftgcopxk[address] [place] [address]Dr. Farhat Leal Hemoglobin (Bld) [Mass/Vol] 13.4 g/dL Critically low 14.0-18.0 [facility] Comment on above: Performed By: #### C BC ####[facility] Dpvgawwmzv0664 [place] [address]DrSkylar Farhat Leal IG # 0.08 10e3/ul Critically high 0.00-0.03 [facility] Comment on above: Performed By: #### C BC ####[facility] Xxuwcwadea3850 [place] [address]Dr. Farhat Leal IG % 1.1 % Critically high 0.0-0.5 [facility] Comment on above: Performed By: #### C BC ####[facility] Ukejtzhqdf2756 [place] [address]Dr. Farhat Elvis LYMPH # 1.3 103/ul Normal 1.2-3.8 [facility] Comment on above: Performed By: #### C BC ####[facility] Dkiksvoirg3725 [place] [address]DrSkylar Farhat Leal Lymphocytes/100 WBC (Bld) 17.3 % Critically low 20.5-60.0 [facility] Comment on above: Performed By: #### C BC ####[facility] Xdhljucbde2635 [place] [address]DrSkylar Farhat Elvis MANUAL DIFF REQ NO Normal [facility] Comment on above: Performed By: #### C BC ####[facility] Mvexkqseke8107 [place] [phone]. Farhat Leal MCH (RBC) [Entitic mass] 31.2 pg Normal 25.9-34.0 [facility] Comment on above: Performed By: #### C BC ####[facility] Yhvwsjycyp9966 [place] [phone]. Farhat Elvis MCHC (RBC) [Mass/Vol] 33.4 g/dL Normal 29.9-35.2 [facility] Comment on above: Performed By: #### C BC ####[facility] Wmxzkmukud4541 [place] [phone] Farhat Leal MCV (RBC) [Entitic vol] 93.3 fL Normal 80.0-94.0 [facility] Comment on above: Performed By: #### C BC ####[facility] Wqdxbxuqwt1097 [place] [phone] Farhat Leal MONO # 0.9 103/ul Critically high 0.3-0.8 [facility] Comment on above: Performed By: #### C BC ####[facility] Xaeuowflhi6584 [place] [address]DrSkylar Farhat Elvis Monocytes/100 WBC (Bld) 12.4 % Critically high 1.7-12.0 [facility] Comment on above: Performed By: #### C BC ####[facility] Nknmjetbzb4583 [place] [address]Dr. Farhat Leal NEUT # 4.7 103/ul Normal 1.4-6.5 [facility] Comment on above: Performed By: #### C BC ####[facility] Ttyvkueeka7770 [place] [address]Dr. Farhat Elvis Neutrophils/100 WBC (Bld) 65.3 % Normal 43.0-75.0 [facility] Comment on above: Performed By: #### C BC ####[facility] Zjmxtksrfd1357 [place] [phone]. Farhat Elvis Platelet mean volume (Bld) [Entitic vol] 9.9 fL Normal 9.5-13.5 [facility] Comment on above: Performed By: #### C BC ####[facility] Zgjuwlpiaw8593 [place] [address]Dr. Farhat Leal PLT 180 103/ul Normal 150-450 [facility] Comment on above: Performed By: #### C BC ####[facility] Cvdikqmwph3365 [place] [phone] Leal RBC 4.30 106/ul Critically low 4.70-6.10 [facility] Comment on above: Performed By: #### C BC ####[facility] Cgajnvcdoc5366 [place] [address]Dr. Farhat Leal WBC 7.2 103/ul Normal 4.0-11.0 [facility] Comment on above: Performed By: #### C BC ####[facility] Isaeuagaml4[address] [place], [place] [address]Dr. Farhat Elvis PTT HEPARIN MONITORon 2021 aPTT Coag (Bld) [Time] 26.7 s Critically low 39.5-54.2 [facility] Comment on above: Performed By: #### P TTHEP ####[facility] Zwrwqcavvw[address] [place], [place] [address]Dr. Farhat Leal aPTT Coag (Bld) [Time] 121.0 s Critically high 39.5-54. 2 [facility] Comment on above: Performed By: #### P TTHEP ####[facility] Qypwsxlbdh7133[address] [place], [place] [address]Dr. Farhat Leal aPTT Coag (Bld) [Time] 27.6 s Critically low 39.5-54.2 [facility] Comment on above: Performed By: #### P TTHEP ####[facility] Litdmgzvbl044[address] [place], [place] [address]Dr. Farhat Leal aPTT Coag (Bld) [Time] 139.0 s Critically high 39.5-54. 2 [facility] Comment on above: Performed By: #### P TTHEP ####[facility] Ewuesylnmq227[address] [place], [place] [address]Dr. Farhat Leal CBC AUTO DIFFon 09-19-2021 BASO # 0.0 103/ul Normal 0.0-0.1 [facility] Comment on above: Performed By: #### C BC ####[facility] Ucazdsbfiv4[address] [place], [place] [address]Dr. Farhat Elvis Basophils/100 WBC (Bld) 0.5 % Normal 0.2-2.0 [facility] Comment on above: Performed By: #### C BC ####[facility] Qhfcfpdnnr1956 [place] [phone]. Farhat Leal EO # 0.2 103/ul Normal 0.0-0.7 [facility] Comment on above: Performed By: #### C BC ####[facility] Prryefylnn9823 [place] [phone]. Farhat Leal Eosinophils/100 WBC (Bld) 2.6 % Normal 0.9-7.0 [facility] Comment on above: Performed By: #### C BC ####[facility] Smxthizmmo412[address] [place], [place] [address]Dr. Farhat Leal Erythrocyte distribution width (RBC) [Ratio] 12.5 % Normal 11.0-15.0 [facility] Comment on above: Performed By: #### C BC ####[facility] Omcxcwnjcf8[address] [place], [place] [address]Dr. Farhat Leal Hematocrit (Bld) [Volume fraction] 39.2 % Critically low 42.0-54.0 [facility] Comment on above: Performed By: #### C BC ####[facility] Cgmmylgwve9[address] [place], [place] [address]Dr. Farhat Leal Hemoglobin (Bld) [Mass/Vol] 13.3 g/dL Critically low 14.0-18.0 [facility] Comment on above: Performed By: #### C BC ####[facility] Yhwejvzoun13[address] [place], [place] [address]Dr. Farhat Leal IG # 0.08 10e3/ul Critically high 0.00-0.03 [facility] Comment on above: Performed By: #### C BC ####[facility] Smydmmlxie2785[address] [place], [place] [address]Dr. Farhat Leal IG % 0.9 % Critically high 0.0-0.5 [facility] Comment on above: Performed By: #### C BC ####[facility] Vfomhllodd8[address] [place], [place] [address]Dr. Farhat Leal LYMPH # 1.5 103/ul Normal 1.2-3.8 [facility] Comment on above: Performed By: #### C BC ####[facility] Yoteikasng7294 [place] [phone]. Farhat Elvis Lymphocytes/100 WBC (Bld) 17.2 % Critically low 20.5-60.0 [facility] Comment on above: Performed By: #### C BC ####[facility] Kanujfcofq3863 [place] [phone]. Farhat Leal MANUAL DIFF REQ NO Normal [facility] Comment on above: Performed By: #### C BC ####[facility] Xwlvryhbww9136 [place] [phone]. Madelynlorri Leal MCH (RBC) [Entitic mass] 31.7 pg Normal 25.9-34.0 [facility] Comment on above: Performed By: #### C BC ####[facility] Atvigpfvwb9156[address] [place], [place] [address]Dr. Farhat Leal MCHC (RBC) [Mass/Vol] 33.9 g/dL Normal 29.9-35.2 [facility] Comment on above: Performed By: #### C BC ####[facility] Juoiogaage8158[address] [place], [place] [address]Dr. Farhat Leal MCV (RBC) [Entitic vol] 93.3 fL Normal 80.0-94.0 [facility] Comment on above: Performed By: #### C BC ####[facility] Nwhjrymxgn26[address] [place], [place] [address]Dr. Farhat Leal MONO # 1.2 103/ul Critically high 0.3-0.8 [facility] Comment on above: Performed By: #### C BC ####[facility] Zjaaoejlrc4[address] [place], [place] [address]Dr. Farhat Leal Monocytes/100 WBC (Bld) 13.7 % Critically high 1.7-12.0 [facility] Comment on above: Performed By: #### C BC ####[facility] Ssnyyizipi[address] [place], [place] [address]Dr. Farhat Leal NEUT # 5.5 103/ul Normal 1.4-6.5 [facility] Comment on above: Performed By: #### C BC ####[facility] Otveaxgxkq8139 [place] [phone]. Farhat Leal Neutrophils/100 WBC (Bld) 65.1 % Normal 43.0-75.0 [facility] Comment on above: Performed By: #### C BC ####[facility] Mpbxmqerzs2869 [place] [phone]. Farhat Leal Platelet mean volume (Bld) [Entitic vol] 9.6 fL Normal 9.5-13.5 [facility] Comment on above: Performed By: #### C BC ####[facility] Sgggvfskif0828 [place] [address]Dr. Farhat Leal PLT 163 103/ul Normal 150-450 [facility] Comment on above: Performed By: #### C BC ####[facility] Vaknvbqmwh8220 [place] [address]Dr. Farhat Elvis RBC 4.20 106/ul Critically low 4.70-6.10 [facility] Comment on above: Performed By: #### C BC ####[facility] Gzvqjvmqpz5312 [place] [phone]. Farhat Leal WBC 8.4 103/ul Normal 4.0-11.0 [facility] Comment on above: Performed By: #### C BC ####[facility] Mmsbjcrozc8152 [place] [address]Dr. Farhat Elvis POINT OF CARE GLUCOSEon Glucose [Mass/Vol] 300 mg/dL Critically high 74-106 [facility] Comment on above: Performed By: #### P OCGLUC ####[facility] Yhtdsmtend2864 [place] [phone]. Farhat Elvis POTASSIUMon 09-19-2021 Potassium [Moles/Vol] 4.9 mmol/L Normal 3.5-5.1 [facility] Comment on above: Performed By: #### K ####[facility] Alkrwrnkeb4601 [place] [phone] Farhat Elvis PTT HEPARIN MONITORon 2021 aPTT Coag (Bld) [Time] 23.4 s Critically low 39.5-54.2 [facility] Comment on above: Result Comment: repe ated Performed By: #### P TTHEP ####[facility] Xpdlqplvmf[address] [place], [place] [address]Dr. Farhat Leal aPTT Coag (Bld) [Time] 101.2 s Critically high 39.5-54. 2 [facility] Comment on above: Performed By: #### P TTHEP ####[facility] Scuixkrqnl3452[address] [place], [place] [address]Dr. Farhat Leal aPTT Coag (Bld) [Time] 81.0 s Critically high 39.5-54. 2 [facility] Comment on above: Result Comment: Test Repeated. Critical Value Verified Performed By: #### P TTHEP ####[facility] Cccclbgnhy1035[address] [place], [place] [address]Dr. Farhat Leal CBC AUTO DIFFon 09-18-2021 BASO # 0.0 103/ul Normal 0.0-0.1 [facility] Comment on above: Performed By: #### C BC ####[facility] Jurfzqosvi5388[address] [place], [place] [address]Dr. Farhat Leal Basophils/100 WBC (Bld) 0.4 % Normal 0.2-2.0 [facility] Comment on above: Performed By: #### C BC ####[facility] Gyrbajrmpq3135[address] [place], [place] [address]Dr. Farhat Leal EO # 0.1 103/ul Normal 0.0-0.7 [facility] Comment on above: Performed By: #### C BC ####[facility] Spmpkfjniw11[address] [place], [place] [address]Dr. Farhat Leal Eosinophils/100 WBC (Bld) 0.8 % Critically low 0.9-7.0 [facility] Comment on above: Performed By: #### C BC ####[facility] Qycrvoixmw0808[address] [place], [place] [address]Dr. Farhat Leal Erythrocyte distribution width (RBC) [Ratio] 12.4 % Normal 11.0-15.0 [facility] Comment on above: Performed By: #### C BC ####[facility] Sleszxjckt8830 [place] [address]DrSkylar Leal Hematocrit (Bld) [Volume fraction] 41.7 % Critically low 42.0-54.0 [facility] Comment on above: Performed By: #### C BC ####[facility] Xchtsxuruw5278 [place] [address]DrSkylar Leal Hemoglobin (Bld) [Mass/Vol] 14.1 g/dL Normal 14.0-18.0 [facility] Comment on above: Performed By: #### C BC ####[facility] Ioisstsydy2168[address] [place], [place] [address]DrSkylar Leal IG # 0.06 10e3/ul Critically high 0.00-0.03 [facility] Comment on above: Performed By: #### C BC ####[facility] Jmiiakfepd963[address] [place], [place] [address]DrSkylar Leal IG % 0.6 % Critically high 0.0-0.5 [facility] Comment on above: Performed By: #### C BC ####[facility] Rfyvkaxlpl1611[address] [place], [place] [address]DrSkylar Leal LYMPH # 0.6 103/ul Critically low 1.2-3.8 [facility] Comment on above: Performed By: #### C BC ####[facility] Vycshlanzu0569[address] [place], [place] [address]DrSkylar Leal Lymphocytes/100 WBC (Bld) 6.5 % Critically low 20.5-60.0 [facility] Comment on above: Performed By: #### C BC ####[facility] Ltsptswzyw7288[address] [place], [place] [address]DrSkylar Leal MANUAL DIFF REQ NO Normal [facility] Comment on above: Performed By: #### C BC ####[facility] Lkcplhffku5886 [place] [address]DrSkylar Leal MCH (RBC) [Entitic mass] 31.6 pg Normal 25.9-34.0 [facility] Comment on above: Performed By: #### C BC ####[facility] Twlygvulye9549 [place] [address]DrSkylar Leal MCHC (RBC) [Mass/Vol] 33.8 g/dL Normal 29.9-35.2 [facility] Comment on above: Performed By: #### C BC ####[facility] Yurplkwnkq3433[address] [place], [place] [address]DrSkylar Leal MCV (RBC) [Entitic vol] 93.5 fL Normal 80.0-94.0 [facility] Comment on above: Performed By: #### C BC ####[facility] Udrwldbyvy6339[address] [place], [place] [address]DrSkylar Leal MONO # 1.0 103/ul Critically high 0.3-0.8 [facility] Comment on above: Performed By: #### C BC ####[facility] Govdzausei7[address] [place], [place] [address]DrSkylar Leal Monocytes/100 WBC (Bld) 10.4 % Normal 1.7-12.0 [facility] Comment on above: Performed By: #### C BC ####[facility] Mqqsxndhkj4416[address] [place], [place] [address]DrSkylar Leal NEUT # 7.8 103/ul Critically high 1.4-6.5 [facility] Comment on above: Performed By: #### C BC ####[facility] Ukdjsargiu5523[address] [place], [place] [address]DrSkylar Leal Neutrophils/100 WBC (Bld) 81.3 % Critically high 43.0-75.0 [facility] Comment on above: Performed By: #### C BC ####[facility] Zcbysdeccp482[address] [place], [place] [address]DrSkylar Leal Platelet mean volume (Bld) [Entitic vol] 9.9 fL Normal 9.5-13.5 [facility] Comment on above: Performed By: #### C BC ####[facility] Dwtvqqkyrd395[address] [place], [place] [address]DrSkylar Leal PLT 169 103/ul Normal 150-450 [facility] Comment on above: Performed By: #### C BC ####[facility] Vjubpiidwu1341 [place] [phone]. Farhat Leal RBC 4.46 106/ul Critically low 4.70-6.10 [facility] Comment on above: Performed By: #### C BC ####[facility] Tpparkvfgp9423 [place] [phone]. Farhat Leal WBC 9.6 103/ul Normal 4.0-11.0 [facility] Comment on above: Performed By: #### C BC ####[facility] Vthrirwvxu[address] [place], [place] [address]Dr. Farhat Leal BASO # 0.0 103/ul Normal 0.0-0.1 [facility] Comment on above: Performed By: #### C BC ####[facility] Qzpaddfugh[address] [place], [place] [address]Dr. Farhat Leal Basophils/100 WBC (Bld) 0.4 % Normal 0.2-2.0 [facility] Comment on above: Performed By: #### C BC ####[facility] Ntkirqypeq47[address] [place], [place] [address]Dr. Farhat Leal EO # 0.1 103/ul Normal 0.0-0.7 [facility] Comment on above: Performed By: #### C BC ####[facility] Xgbcwaclxy5575 [place] [phone]. Farhat Leal Eosinophils/100 WBC (Bld) 1.1 % Normal 0.9-7.0 [facility] Comment on above: Performed By: #### C BC ####[facility] Ilyftabsib38[address] [place], [place] [address]Dr. Farhat Leal Erythrocyte distribution width (RBC) [Ratio] 12.6 % Normal 11.0-15.0 [facility] Comment on above: Performed By: #### C BC ####[facility] Czopryyyjg[address] [place], [place] [address]Dr. Farhat Leal Hematocrit (Bld) [Volume fraction] 40.8 % Critically low 42.0-54.0 [facility] Comment on above: Performed By: #### C BC ####[facility] Fnjlnlizwc8642 [place] [address]DrSyklar Farhat Elvis Hemoglobin (Bld) [Mass/Vol] 13.6 g/dL Critically low 14.0-18.0 [facility] Comment on above: Performed By: #### C BC ####[facility] Fdshupivpy6060 [place] [address]DrSkylar Joshilorri Elvis IG # 0.08 10e3/ul Critically high 0.00-0.03 [facility] Comment on above: Performed By: #### C BC ####[facility] Gmfbmwvkjj5051 [place] [address]DrSkylar Leal IG % 0.9 % Critically high 0.0-0.5 [facility] Comment on above: Performed By: #### C BC ####[facility] Vwrpuircjn[address] [place], [place] [address]DrSkylar Leal LYMPH # 0.8 103/ul Critically low 1.2-3.8 [facility] Comment on above: Performed By: #### C BC ####[facility] Olgiymrneq9280 [place] [address]DrSkylar Leal Lymphocytes/100 WBC (Bld) 8.7 % Critically low 20.5-60.0 [facility] Comment on above: Performed By: #### C BC ####[facility] Pxuvasruhm3877 [place] [address]DrSkylar Leal MANUAL DIFF REQ NO Normal [facility] Comment on above: Performed By: #### C BC ####[facility] Hgllxubyvs4946 [place] [phone] Leal MCH (RBC) [Entitic mass] 31.6 pg Normal 25.9-34.0 [facility] Comment on above: Performed By: #### C BC ####[facility] Nneozoyyup4033 [place] [phone] Leal MCHC (RBC) [Mass/Vol] 33.3 g/dL Normal 29.9-35.2 [facility] Comment on above: Performed By: #### C BC ####[facility] Pcbdgryaty0020 [place] [address]DrSkylar Leal MCV (RBC) [Entitic vol] 94.9 fL Critically high 80.0-94.0 [facility] Comment on above: Performed By: #### C BC ####[facility] Tjpkqvifub53[address] [place], [place] [address]DrSkylar Leal MONO # 1.0 103/ul Critically high 0.3-0.8 [facility] Comment on above: Performed By: #### C BC ####[facility] Kcwxzhvuwv435[address] [place], [place] [address]DrSkylar Leal Monocytes/100 WBC (Bld) 11.3 % Normal 1.7-12.0 [facility] Comment on above: Performed By: #### C BC ####[facility] Lfdoijesxk[address] [place], [place] [address]Dr. Farhat Leal NEUT # 6.9 103/ul Critically high 1.4-6.5 [facility] Comment on above: Performed By: #### C BC ####[facility] Nzdxgyragh3544[address] [place], [place] [address]DrSkylar Leal Neutrophils/100 WBC (Bld) 77.6 % Critically high 43.0-75.0 [facility] Comment on above: Performed By: #### C BC ####[facility] Osjktjcjkb70[address] [place], [place] [address]DrSkylar Leal Platelet mean volume (Bld) [Entitic vol] 9.7 fL Normal 9.5-13.5 [facility] Comment on above: Performed By: #### C BC ####[facility] Ljstkdbivw10[address] [place], [place] [address]DrSkylar Leal PLT 171 103/ul Normal 150-450 [facility] Comment on above: Performed By: #### C BC ####[facility] Trkwnabovf1942[address] [place], [place] [address]DrSkylar Leal RBC 4.30 106/ul Critically low 4.70-6.10 [facility] Comment on above: Performed By: #### C BC ####[facility] Lguhokidae9681 [place] [phone]. Farhat Leal WBC 8.9 103/ul Normal 4.0-11.0 [facility] Comment on above: Performed By: #### C BC ####[facility] Vcsohcneoh2725 [place] [phone]. Farhat Leal Covid-19 PCR (CVDTB)on SARS-CoV-2 (COVID-19) RNA JOSH+probe Ql (Unsp spec) Not detected Normal NOT DETECTED [facility] Comment on above: Result [...] for this test is supported by the [employer] of Health and Human Service's declaration that [...] be used). Performed By: #### C VDTBH ####[facility] Rjuidefffe7164 [place] [phone]. Farhat Leal PROF 14(COMP METB)on 022 Albumin [Mass/Vol] 2.6 g/dL Critically low 3.4-5.[address] [facility] Comment on above: Performed By: #### C MP ####[facility] Dlqgthlaht3956 [place] [phone]. Farhat Leal Albumin/Globulin [Mass ratio] 0.7 {ratio} Normal [facility] Comment on above: Performed By: #### C MP ####[facility] Hipbbmqzjo3500 [place] [address]Dr. Farhat Leal ALP [Catalytic activity/Vol] 88 U/L Normal 46-116 [facility] Comment on above: Performed By: #### C MP ####[facility] Vbcfiptwch4604 [place] [address]Dr. Farhat Leal ALT [Catalytic activity/Vol] 15 U/L Critically low 16-63 [facility] Comment on above: Performed By: #### C MP ####[facility] Qiyxjrsdht[address] [place], [place] [address]Dr. Farhat Leal Anion gap [Moles/Vol] 11.7 mmol/L Normal [facility] Comment on above: Performed By: #### C MP ####[facility] Vkyavbxaxl26[address] [place], [place] [address]Dr. Farhat Leal AST [Catalytic activity/Vol] 25 U/L Normal 15-37 [facility] Comment on above: Performed By: #### C MP ####[facility] A[address] [place], [place] [address]Dr. Farhat Leal Bilirubin [Mass/Vol] 0.6 mg/dL Normal 0.2-1.0 [facility] Comment on above: Performed By: #### C MP ####[facility] Kxlnxbdizg[address] [place], [place] [address]Dr. Farhat Leal Calcium [Mass/Vol] 8.9 mg/dL Normal 8.5-10.1 [facility] Comment on above: Performed By: #### C MP ####[facility] D[address]dslzpiz[address] [place], [place] [address]Dr. Farhat Leal Chloride [Moles/Vol] 93 mmol/L Critically low 98-107 [facility] Comment on above: Performed By: #### C MP ####[facility] Rmxmgxines[address] [place], [place] [address]Dr. Farhat Leal CO2 [Moles/Vol] 28.9 mmol/L Normal 21.0-32.0 [facility] Comment on above: Performed By: #### C MP ####[facility] [address] [place] [address]Dr. Farhat Leal Creatinine [Mass/Vol] 2.09 mg/dL Critically high 0.70-1.30 [facility] Comment on above: Performed By: #### C MP ####[facility] [address]curcr[address] [place] [id number]. Farhat Leal EGFR-AF MARTINIQUAIS 38 mL/min/1.73m2 Critically low >=60 [facility] Comment on above: Performed By: #### C MP ####[facility] [address] [place] [address]Dr. Farhat Elvis EGFR-NON AF MARTINIQUAIS 31 mL/min/1.73m2 Critically low >=60 [facility] Comment on above: Performed By: #### C MP ####[facility] Twvlhucvax[address] [place], [place] [address]Dr. Madelynlorri Leal Globulin (S) [Mass/Vol] 3.7 g/dL Normal [facility] Comment on above: Performed By: #### C MP ####[facility] Y[address] [place], [place] [address]Dr. Farhat Leal Glucose [Mass/Vol] 214 mg/dL Critically high 74-106 T [facility] Comment on above: Performed By: #### C MP ####[facility] [address]acufj[address] [place] [address]Dr. Madelynlorri Leal Potassium [Moles/Vol] 5.6 mmol/L Critically high 3.5-5.1 [facility] Comment on above: Performed By: #### C MP ####[facility] Djc[address]hsjd[address] [place], [place] [address]Dr. Farhat Leal Protein [Mass/Vol] 6.3 g/dL Critically low 6.4-8.2 [facility] Comment on above: Performed By: #### C MP ####[facility] Hppigcciwz[address] [place], [place] [address]Dr. Farhat Leal Sodium [Moles/Vol] 128 mmol/L Critically low 136-[address] [facility] Comment on above: Performed By: #### C MP ####[facility] [address]se[address] [place] [address]Dr. Farhat Elvis Urea nitrogen [Mass/Vol] 65.0 mg/dL Critically high 7.0-18.0 [facility] Comment on above: Performed By: #### C MP ####[facility] [address]kbf[address] [place] [address]Dr. Farhat Leal Urea nitrogen/Creatinine [Mass ratio] 31.1 mg/mg Normal [facility] Comment on above: Performed By: #### C MP ####[facility] Hsatopifwm[address] [place], [place] [address]Dr. Farhat Leal Albumin [Mass/Vol] 2.5 g/dL Critically low 3.4-5.[address] [facility] Comment on above: Performed By: #### T MYRIAM, CMP ####[facility] Jmsonbrejd[address] [place], [place] [address]Dr. Farhat Leal Albumin/Globulin [Mass ratio] 0.7 {ratio} Normal [facility] Comment on above: Performed By: #### T MYRIAM, CMP ####[facility] Mfiwirrvsn[address] [place], [place] [address]Dr. Farhat Leal ALP [Catalytic activity/Vol] 83 U/L Normal 46-116 [facility] Comment on above: Performed By: #### T MYRIAM, CMP ####[facility] Wwthrknlyl[address] [place], [place] [address]Dr. Farhat Leal ALT [Catalytic activity/Vol] 16 U/L Normal 16-63 [facility] Comment on above: Performed By: #### T SH, CMP ####[facility] Ldvhuexxxg[address] [place], [place] [address]Dr. Farhat Leal Anion gap [Moles/Vol] 9.7 mmol/L Normal [facility] Comment on above: Performed By: #### T SH, CMP ####[facility] Xjeuxtymej[address] [place], [place] [address]Dr. Farhat Leal AST [Catalytic activity/Vol] 27 U/L Normal 15-37 [facility] Comment on above: Performed By: #### T SH, CMP ####[facility] [address]rm[address] [place] [id number]. Farhat Leal Bilirubin [Mass/Vol] 0.5 mg/dL Normal 0.2-1.0 [facility] Comment on above: Performed By: #### T SH, CMP ####[facility] Figwvehnde[address] [place], [place] [address]Dr. Farhat Leal Calcium [Mass/Vol] 8.8 mg/dL Normal 8.5-10.1 [facility] Comment on above: Performed By: #### T SH, CMP ####[facility] Z[address]qwed[address] [place], [place] [address]Dr. Farhat Leal Chloride [Moles/Vol] 95 mmol/L Critically low 98-107 [facility] Comment on above: Performed By: #### T SH, CMP ####[facility] Cedtomckgd[address] [place], [place] [address]Dr. Farhat Leal CO2 [Moles/Vol] 30.5 mmol/L Normal 21.0-32.0 [facility] Comment on above: Performed By: #### T SH, CMP ####[facility] Y[address]bc[address]yp[address] [place], [place] [address]Dr. Farhat Leal Creatinine [Mass/Vol] 2.18 mg/dL Critically high 0.70-1.30 [facility] Comment on above: Performed By: #### T SH, CMP ####[facility] Misxaumrzg[address] [place], [place] [address]Dr. Farhat Leal EGFR-AF MARTINIQUAIS 36 mL/min/1.73m2 Critically low >=60 [facility] Comment on above: Performed By: #### T SH, CMP ####[facility] Ycbithecpr[address] [place], [place] [address]Dr. Farhat Leal EGFR-NON AF MARTINIQUAIS 30 mL/min/1.73m2 Critically low >=60 [facility] Comment on above: Performed By: #### T SH, CMP ####[facility] Scvfmgcmgj[address] [place], [place] [address]Dr. Farhat Leal Globulin (S) [Mass/Vol] 3.5 g/dL Normal [facility] Comment on above: Performed By: #### T SH, CMP ####[facility] Rvbpwostyb[address] [place], [place] [address]Dr. Farhat Leal Glucose [Mass/Vol] 141 mg/dL Critically high 74-106 T [facility] Comment on above: Performed By: #### T SH, CMP ####[facility] Icmhotigko[address] [place], [place] [address]Dr. Farhat Leal Potassium [Moles/Vol] 5.2 mmol/L Critically high 3.5-5.1 [facility] Comment on above: Performed By: #### T SH, CMP ####[facility] Xftpcsuxwp[address] [place], [place] [address]Dr. Farhat Leal Protein [Mass/Vol] 6.0 g/dL Critically low 6.4-8.[address] [facility] Comment on above: Performed By: #### T MYRIAM, CMP ####[facility] Bdeeuzfcid5[address] [place], [place] [address]Dr. Farhat Leal Sodium [Moles/Vol] 130 mmol/L Critically low 136-145 [facility] Comment on above: Performed By: #### T MYRIAM, CMP ####[facility] Eqxhrjzcnc[address] [place], [place] [address]Dr. Farhat Leal Urea nitrogen [Mass/Vol] 63.0 mg/dL Critically high 7.0-18.0 [facility] Comment on above: Performed By: #### T MYRIAM, CMP ####[facility] T[address]judsirpx[address] [place], [place] [address]Dr. Farhat Leal Urea nitrogen/Creatinine [Mass ratio] 28.9 mg/mg Normal [facility] Comment on above: Performed By: #### T MYRIAM, CMP ####[facility] Bfvjkozmwb[address] [place], [place] [address]Dr. Farhat Leal PROTIMEon 09-18-2021 INR Coag (PPP) [Relative time] 1.06 {INR} Normal [facility] Comment on above: Performed By: #### P T, PTT ####[facility] [address] [place] [address]Dr. Farhat Leal INR GUIDELINES SEE BELOW Normal [facility] Comment on above: Result Comment: MALINA RED INR: 2.0 - 3.0 CONDITIONS NOT LISTED BELOW 2.5 - 3.5 FOR PROSTHETIC HEART VALVE REPLACEMENT 2.5 - 3.5 RECURRENT THROMBOSIS Performed By: #### P T, PTT ####[facility] [address] [place] [address]Dr. Madelynlorri Elvis PT Coag (PPP) [Time] 11.4 s Normal 9.0-11.6 [facility] Comment on above: Performed By: #### P T, PTT ####[facility] [address] [place] [address]Dr. Farhat Leal PTTon 09-18-2021 aPTT Coag (Bld) [Time] 27.9 s Normal 22.3-36.2 [facility] Comment on above: Performed By: #### P T, PTT ####[facility] Amy[address]emldq[address] [place] [address]Dr. Farhat Elvis TSHon 09-18-2021 TSH 7.099 uIU/mL Critically high 0.358-3.740 [facility] Comment on above: Performed By: #### T SH, CMP ####[facility] [address] [place] [address]Dr. Farhat Leal US SALOME DOP LEG RTon 09-19-19 US SALOME DOP LEG RT Normal [facility] XR CHEST 1 Von 09-18-2021 XR CHEST 1 V Normal [facility] XR HIP RT 2 3V W PELVISon XR HIP RT 2 3V W PELVIS Normal [facility] Vital Signs Date Time Vital Sign Value Performing Clinician Facility 03-18-2023 13:37-0500 Body temperature 98.01 [degF] Ni Cabrera DO Work Phone: [facility] 03-18-2023 13:37-0500 Diastolic blood pressure 64 mm[Hg] Ni Cabrera DO Work Phone: [facility] 03-18-2023 13:37-0500 Heart rate 72 /min Ni Petznick DO Work Phone: [facility] 03-18-2023 13:37-0500 SaO2% (BldA) [Mass fraction] 98 % Ni Petznick DO Work Phone: [facility] 03-18-2023 13:37-0500 Systolic blood pressure 118 mm[Hg] Ni Petznick DO Work Phone: [facility] 07-20-2022 13:35-0400 Body temperature 97.4 [degF] DO Devon Ball Work Phone: [facility] 07-20-2022 13:35-0400 Diastolic blood pressure 50 mm[Hg] DO Devon Ball Work Phone: [facility] 07-20-2022 13:35-0400 Heart rate 67 /min DO Devon Ball Work Phone: [facility] 07-20-2022 13:35-0400 Respiratory rate 20 /min DO Devon Ball Work Phone: [facility] 07-20-2022 13:35-0400 Systolic blood pressure 98 mm[Hg] DO Devon Ball Work Phone: [facility] 06-29-2022 14:46-0400 Body height 193.04 cm DO Devon Ball Work Phone: [facility] 02-26-2022 13:11-0500 Body temperature [...] Diastolic blood pressure 54 mm[Hg] Alissa Major CORPORATE RISK ANALYST.WORKFORCE DEVELOPMENT ASSISTANT Work Phone: [facility] 01-12-2022 11:00-0500 Heart rate 88 /min Alissa Major CORPORATE RISK ANALYST.WORKFORCE DEVELOPMENT ASSISTANT Work Phone: [facility] 01-12-2022 11:00-0500 SaO2% (BldA) [Mass fraction] 93 % Alissa Major CORPORATE RISK ANALYST.WORKFORCE DEVELOPMENT ASSISTANT Work Phone: [facility] 01-12-2022 11:00-0500 Systolic blood pressure 96 mm[Hg] Alissa Major CORPORATE RISK ANALYST.WORKFORCE DEVELOPMENT ASSISTANT Work Phone: [facility] 01-12-2022 10:12-0500 Body temperature 97.9 [degF] Alissa Major CORPORATE RISK ANALYST.WORKFORCE DEVELOPMENT ASSISTANT Work Phone: [facility] 01-12-2022 10:12-0500 Respiratory rate 18 /min Alissa Major CORPORATE RISK ANALYST.WORKFORCE DEVELOPMENT ASSISTANT Work Phone: [facility] 11-17-2021 15:59-0400 Body height 193 cm No Reeder DO Work Phone: [facility] 11-17-2021 15:59-0400 Body weight 111.58 kg No Reeder DO Work Phone: [facility] 10-03-2022 15:59-0400 Diastolic blood pressure 59 mm[Hg] No [...] Date Encounter Type Care Provider Facility Start: 09-17-2023 End: 09-17-2023 ambulatory NI CABRERA Not Available Start: 09-02-2023 End: 09-02-2023 ambulatory [facility] Start: 06-17-2023 End: 06-17-2023 ambulatory NI CABRERA Not Available Start: 05-19-2023 End: 05-19-2023 ambulatory CAITY [facility] Start: 04-11-2023 End: 04-11-2023 ambulatory Devon Moreira Other [employer] Other Start: 04-11-2023 Telephone encounter Devon Moreira [facility] Start: 03-18-2023 End: 03-18-2023 Office outpatient visit 25 minutes Ni Cabrera DO Work Phone: [facility] [phone] Comment on above: 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 ([facility]/HCC) (Primary Dx); 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); 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); Type 1 diabetes mellitus with hypoglycemia and without coma (CMS/HCC); 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 ([facility]/HCC) Start: 03-18-2023 End: 03-18-2023 ambulatory NI CABRERA Not Available Start: 02-17-2023 End: 02-17-2023 ambulatory Devon Moreira Other [employer] Other Start: 02-17-2023 Telephone encounter Devon Moreira [facility] Start: 01-14-2023 End: 01-14-2023 ambulatory Devon Moreira Other [employer] Other Start: 01-14-2023 Sbsq nursing facil c are/day minor complj 15 min [facility] Start: 12-10-2022 End: 12-10-2022 ambulatory Devon Moreira Other [employer] Other Start: 12-10-2022 Sbsq nursing facil c are/day minor complj 15 min [facility] Start: 11-12-2022 End: 11-12-2022 ambulatory Devon Moreira Other [employer] Other Start: 11-12-2022 Sbsq nursing facil c are/day minor complj 15 min [facility] Start: 10-16-2022 Refill Asia Pike MD Work Phone: [facility] Comment on above: Med Change Request Start: 10-12-2022 End: 10-12-2022 ambulatory Devon Moreira Other [employer] Other Start: 10-12-2022 Telephone encounter Devon NUNEZ [facility] Start: 10-08-2022 End: 10-08-2022 ambulatory Devon Moreira Other [employer] Other Start: 10-08-2022 Sbsq nursing facil c are/day new problem 25 min [facility] Start: 09-22-2022 Refill Ariadna Mcdowell [facility] Comment on above: Rx Refills Start: 09-10-2022 End: 09-10-2022 ambulatory Devon Moreira Other [employer] Other Start: 09-10-2022 Sbsq nursing facil c are/day new problem 25 min [facility] Start: 09-09-2022 End: 09-09-2022 ambulatory SARTHAK [facility] Start: 08-06-2022 End: 08-06-2022 ambulatory Devon Moreira Other [employer] Other Start: 08-06-2022 Sbsq nursing facil c are/day new problem 25 min Devon Moreira [facility] Start: 07-22-2022 End: 07-22-2022 ambulatory Devon Moreira Other [employer] Other Start: 07-22-2022 Telephone encounter [facility] Start: 07-20-2022 End: 07-20-2022 ambulatory Sadia Jeff Facility:[facility] Start: 07-20-2022 End: 07-20-2022 ambulatory DO Devon Moreira Work Phone: [facility] Work Phone: Start: 07-20-2022 End: 07-20-2022 Discharged Recurring DO Devon Moreira Work Phone: [facility] Work Phone: Start: 07-13-2022 End: 07-13-[address] DEVON MOREIRA Facility:[facility]1 Start: 07-10-2022 End: 07-10-[address] DEVON MOREIRA Facility:[facility] Start: 07-03-2022 End: 07-03-[address] DEVON MOREIRA Facility:[facility] Start: 06-26-2022 End: 06-26-[address] DEVON MOREIRA Facility:[facility] Start: 06-26-2022 End: 06-26-[address] DEVON MOREIRA Facility:[facility] Start: 06-25-2022 End: 06-25-2022 ambulatory Devon Moreira Other [employer] Other Start: 06-25-2022 Sbsq nursing facil c are/day minor complj 15 min Devon Moreira [facility] Start: 06-19-2022 End: 06-19-[address] DEVON MOREIRA Facility:[facility]1 Start: 06-15-2022 End: 07-15-2022 ambulatory SHAIKH Kate MURRAY Facility:[facility] Start: 06-12-2022 End: 06-12-[address] DOCTOR WALSH Facility:[facility] Start: 06-05-2022 Sbsq nursing facil c are/day new problem 25 min Devon Moreira [facility] Start: 06-05-2022 End: 06-05-[address] DEVON MOREIRA [facility] [employer] Other Start: 05-29-2022 End: 05-29-[address] DEVON MOREIRA Facility:[facility]1 Start: 05-22-2022 End: 05-22-[address] DEVON MOREIRA Facility:[facility] Start: 05-20-2022 End: 05-20-[address] DEVON MOREIRA Facility:[facility]1 Start: 05-18-2022 End: 06-12-2022 ambulatory SHAIKH Kate MURRAY Facility:[facility]1 Start: 05-15-2022 End: 05-15-[address] DEVON MOREIRA Facility:[facility]1 Start: 05-13-2022 End: 05-13-2022 ambulatory Van Olivarez APRN.WORKFORCE DEVELOPMENT ASSISTANT Work Phone: [facility] Comment on above: results Start: 05-13-2022 E-mail encounter fro m caregiver Van Olivarez APRN.WORKFORCE DEVELOPMENT ASSISTANT Work Phone: [facility] Start: 05-08-2022 End: 05-08-[address] DEVON MOREIRA Facility:[facility]1 Start: 05-07-2022 End: 05-07-2022 ambulatory Devon Moreira Other [facility] [employer] Other Start: 05-07-2022 Sbsq nursing facil c are/day new problem 25 min Devon Moreira [facility] Start: 05-06-2022 End: 05-06-2022 ambulatory [...] MOREIRA Facility:[facility]1 Start: 04-02-2022 ambulatory Van cortes APRN.WORKFORCE DEVELOPMENT ASSISTANT Work Phone: [facility] Start: 04-01-2022 End: 04-01-[address] DEVON MOREIRA Facility:[facility]1 Start: 03-22-2022 Refill Aisa Pike MD Work Phone: [facility] Comment on above: Med Change Request Start: 03-21-2022 ambulatory SHAIKH Kate MURRAY Facilit y:H1 Start: 03-11-2022 End: 03-11-[address] DEVON MOREIRA Facility:[facility]1 Start: 02-27-2022 Refill Samira Serna [facility] Comment on above: Rx Refills Start: 02-26-2022 End: 02-26-2022 ambulatory EDVON MOREIRA Facility:[facility] Start: 02-26-2022 End: 02-26-2022 Patient encounter [...] MURRAY Facility:[facility]1 Start: 02-19-2022 Telephone encounter Augusta [facility] Comment on above: Results (Tacro 23.9) Start: 02-18-2022 Telephone encounter Devon Moreira DO Work Phone: [facility] Comment on above: Appointment Refill Request Start: 02-05-2022 End: 02-06-[address] DEVON MOREIRA Facility:[facility]1 Start: 02-05-2022 End: 02-06-2022 [facility] Start: 02-05-2022 End: 02-05-2022 Patient encounter [facility] Work Phone: [facility] Comment on above: Kidney replaced by t ransplant (Primary Dx); 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; buttermaker helper current use of immunosuppressive drug Start: 01-26-2022 End: 01-26-[address] DEVON MOREIRA Facility:[facility]1 Start: 01-20-2022 Telephone encounter Van Olivarez APRN.WORKFORCE DEVELOPMENT ASSISTANT Work Phone: [facility] Comment on above: Results Start: 01-19-2022 End: 01-19-[address] DEVON MOREIRA Facility:[facility]1 Start: 01-16-2022 ambulatory SHAIKH Kate Kevin y:H1 Start: 01-12-2022 End: 01-12-2022 Subsequent hospital visit by physician Alissa Chavira APRN.WORKFORCE DEVELOPMENT ASSISTANT Work Phone: Angio Comment on above: ILIANA (acute kidney in jury) ([facility]) [N17.9] Start: 12-30-2021 End: 12-30-2021 ambulatory Paresh Fonseca MD Work Phone: Infectious Disease Comment on above: MRSA bacteremia (Arabella muinra Dx); Diabetic foot ulcer with osteomyelitis (HCC) Start: 12-30-2021 End: 12-30-2021 Telemedicine consultation with patient Paresh Fonseca MD Work Phone: [facility] Start: 12-29-2021 End: 12-29-[address] DEVON MOREIRA Facility:H1 Start: 12-25-2021 End: 12-26-[address] DEVON MOREIRA Facility:[facility]1 Start: 12-20-2021 End: 12-20-[address] DEVON MOREIRA Facility:[facility]1 Start: 12-16-2021 End: 01-14-2022 ambulatory SHAIKH Kate TREVOR Facility:H1 Start: 12-16-2021 Telephone encounter Hina shepard [...] Start: 12-08-2021 Orders Only Artur Burger ry CORPORATE RISK ANALYST.WORKFORCE DEVELOPMENT ASSISTANT Work Phone: [facility] Comment on above: Kidney replaced by t ransplant (Primary Dx) Start: 12-07-2021 ambulatory Paresh Fonseca MD Work Phone: [facility] Comment on above: CoPat Start (copat s top 12/27/21) Start: 12-05-2021 Telephone encounter Paresh Fonseca MD Work Phone: Infectious Disease Comment on above: Patient Update (evus held discussion/) Start: 12-01-2021 Follow-up encounter [facility] Provider [facility] Start: 12-01-2021 Patient encounter procedure [facility] Prov ider [facility] Department Start: 11-23-2021 End: 11-28-2021 Evaluation and management of inpatient SHAIKH Kate TREVOR Facility:H1 Start: 11-18-2021 End: 12-16-2021 ambulatory DIAMOND H TREVOR Facility:H1 Start: 11-17-2021 End: 11-17-2021 Patient encounter procedure No Reeder DO Work Phone: Vascular Medicine Comment on above: Acute deep vein thro mbosis (DVT) of proximal end of right lower extremity (HCC) (Primary Dx); PAD (peripheral artery disease) (HCC); Nonhealing ulcer of heel (HCC); Anticoagulation management encounter Start: 11-14-2021 End: 11-15-2021 ambulatory ASHLEY Cortes [facility] Facility:H1 Start: 10-24-2021 End: 11-15-2021 ambulatory SHAIKH Kate MURRAY Facility:H1 Start: 10-22-2021 End: 10-23-2021 ambulatory ASHLEY Cortes [facility] Facility:H1 Start: 10-06-2021 ambulatory Van cortes CORPORATE RISK ANALYST.WORKFORCE DEVELOPMENT ASSISTANT Work Phone: [facility] Start: 09-30-2021 Refill Asia Pike MD Work Phone: [facility] Comment on above: Refill Request Start: 09-19-2021 End: 09-24-2021 Evaluation and management of inpatient DR PROSPER LEES Facility:H1 Start: 09-18-2021 End: 09-19-[address] DEVON MOREIRA Facility:[facility]1 Start: 07-11-2021 Refill Asia Pike MD Work Phone: [facility] Comment on above: Refill Request Start: 06-05-2021 Telephone encounter Van Olivarez CORPORATE RISK ANALYST.WORKFORCE DEVELOPMENT ASSISTANT Work Phone: [facility] Comment on above: Results Start: 02-05-2021 End: 02-13-2021 ambulatory UNKNOWN PROVIDER Facility:[facility] Procedures Date Procedure Procedure Detail Performing Clinician Start: 05-19-2023 Follow-up visit Follow-up CAITY IBRAHIM Start: 03-18-2023 Hemoglobin glycosyla rk a1c Ni Cabrera DO Work Phone: Start: 02-05-2022 Creatinine other source Asia Pike MD Work Phone: Start: 02-05-2022 Urnls dip stick/tabl et rgnt auto w/o microscopy Asia Pike MD Work Phone: Start: 01-12-2022 Prothrombin time Alissa Chavira APRN.WORKFORCE DEVELOPMENT ASSISTANT Work Phone: Start: 12-01-2021 [facility]IN[facility] CHECK [facility] Provider Start: 11-29-2021 Microscopic examinat ion of blood, culture DR PROSPER LEES Comment on above: Performed By: #### B [id number] ####[facility] [address] [place], [place] [address]KeSkylar Leal Start: 11-27-2021 Insertion of Infusio n [...] renal transplant KIDNEY TRANSPLANT STATUS Van Olivarez CORPORATE RISK ANALYST.WORKFORCE DEVELOPMENT ASSISTANT Work Phone: History of renal transplant Kidney replaced by transplant Artur Chen CORPORATE RISK ANALYST.WORKFORCE DEVELOPMENT ASSISTANT Work Phone: History of renal transplant Kidney replaced by transplant [facility] Work Phone: History of renal transplant Devon Moreira Other History of renal transplant Kidney replaced by transplant Asia Pike MD Work Phone: History of renal transplant Devon Moreira Other Plan of Treatment Date Care Activity Detail Author Start: 06-17-2023 End: 06-17-2023 Patient encounter procedure 06/17/2023 2:15 PM EDT Office Visit [facility] [address] [place] [address] Ni Cabrera DO [address] [place] [address] [facility] [address] Start: 06-16-2023 Hemoglobin [...] [place] Start: 10-16-2022 Influenza vaccination [facility] Start: 05-15-2022 Medicare Annual Wellness (AWV) [...] [place] Start: 10-16-2021 Influenza vaccination [facility] Start: 03-26-2021 COVID-19 VACCINE (3 - [...] [place] Start: 2009 ADULT PREVNAR-13 ADULT PREVNAR-13 [facility] Start: 2009 PNEUMOVAX AGE 65 AND [...] [place] Start: 1962 ANNUAL PCP TEAM SACK SORTER MATTHEW DISEASE VISIT ANNUAL PCP TEAM CHRONIC [...] Routine Screening for genitourinary condition Ordered: 10/06/2021 [facility] Work Phone: Comment on above: Ordered: 10/06/2021 URINALYSIS, REFLEX MICROSCOPIC URINALYSIS, REFLEX MICROSCOPIC Lab Routine Screening for genitourinary condition Ordered: 04/02/2022 [facility] Work Phone: Comment on above: Ordered: 04/02/2022 End: 11-17-2022 US LEG ARTERIAL PERIPH UNL VAS LAB US LEG ARTERIAL PERIPH UNL VAS LAB Vascular Lab Routine PAD (peripheral artery disease) (HCC) Nonhealing ulcer of heel (HCC) 1 Occurrences starting 11/17/2021 until 11/17/2022 [facility] Work Phone: Comment on above: 1 Occurrences starti ng 11/17/2021 until 11/17/2022 End: 11-17-2022 US LEG VEIN DVT UNL VAS LAB US LEG VEIN DVT UNL VAS LAB Vascular Lab Routine Acute deep vein thrombosis (DVT) of proximal end of right lower extremity (HCC) 1 Occurrences starting 11/17/2021 until 11/17/2022 [facility] Work Phone: Comment on above: 1 Occurrences starti ng 11/17/2021 until 11/17/2022 [facility] & VAS [facility] Immunizations Immunization Date Immunization Notes Care Provider Adam gonzalez 12-11-2021 COVID-19 booster vaccine, age 12+ yr, bivalent (PFIZER-BIONTSoFits.Me) Paresh Fonseca MD Work Phone: [facility] 12-11-2021 influenza, high-dose , quadrivalent vaccine (FLUZONE HIGH DOSE QUADRIVALENT) Paresh Fonseca MD Work Phone: [facility] 12-11-2021 influenza virus vaccine, unspecified formulation ETHERA [facility] 10-24-2021 influenza, high dose seasonal, preservative-free Ni Petznick DO Work Phone: [facility] 01-19-2019 influenza, high dose seasonal, preservative-free Ni Petznick DO Work Phone: [facility] 11-25-2017 Seasonal trivalent influenza vaccine, adjuvanted, preservative free Ni Petznick DO Work Phone: [facility] 11-05-2016 influenza, high dose seasonal, preservative-free Nining Sandhuick DO Work Phone: [facility] 07-30-2014 pneumococcal polysaccharide vaccine, 23 valent Ni Petznick DO Work Phone: [facility] 03-09-2011 influenza virus vaccine, unspecified formulation Van Lard CORPORATE RISK ANALYST.WORKFORCE DEVELOPMENT ASSISTANT Work Phone: [facility] 12-17-2007 influenza virus vaccine, unspecified formulation Van Lard CORPORATE RISK ANALYST.WORKFORCE DEVELOPMENT ASSISTANT Work Phone: [facility] Work Phone: 02-11-2006 influenza virus vaccine, unspecified formulation Van Lard CORPORATE RISK ANALYST.WORKFORCE DEVELOPMENT ASSISTANT Work Phone: [facility] Work Phone: 12-07-2003 influenza virus vaccine, unspecified formulation Van Lard CORPORATE RISK ANALYST.WORKFORCE DEVELOPMENT ASSISTANT Work Phone: [facility] Work Phone: 12-07-2003 pneumococcal polysaccharide vaccine, 23 valent Van Krused CORPORATE RISK ANALYST.[facility] Work Phone: [facility] Work Phone: NEGATED: Highlighted row has not occurred!12-10-2021 COVID-19 booster vaccine, age 12+ yr, bivalent (PFIZER-BIONTSoFits.Me) Paresh Fonseca MD Work Phone: [facility] NEGATED: Highlighted row has not occurred!12-10-2021 influenza, high-dose, quadrivalent vaccine (FLUZONE HIGH DOSE QUADRIVALENT) Paresh Fonseca MD Work Phone: [facility] Payers Date Payer Category Payer Medicare MEDICARE MEDICAR E A AND B [id number] 2009-Present [phone] [place] [address] Medicare [id number] .[id number] 2009 Medicare [id number] [id number] .[id number] 2009 Unknown [employer] MEDICARE SUPPLEMENT [id number] 2009-Present [phone] [address] [employer] [facility] [place] [address] Indemnity [id number].3 .[id number] 2009 Unknown [id number]. 1.13.159.2.7.3 .246372.315 2009 Unknown [id number] 2.16.8 40.1.062092.19 2009 Unknown [id number] 1959 Medicare [id number] 1959 Self-pay 1944 Unknown [id number] 2.16.840.1.477647.3.579.2.732 1944 Unknown [id number] 2.16.840.1.420273.3.579.2.593 1944 Unknown [id number] 2.16.840.1.548160.3.579.2.593 1944 Unknown [id number] 2.16.840.1.856524.3.579.2.593 1944 Unknown [id number] 2.16.840.1.438982.3.579.2.593 1944 Unknown [id number] 2.16.840.1.100757.3.579.2.593 1944 Unknown [id number] 2.16.840.1.902016.3.579.2.593 1944 Unknown [id number] 2.16.840.1.127839.3.579.2.593 1944 Unknown [id number] 2.16.840.1.840151.3.579.2.593 1944 Unknown [id number] 2.16.840.1.693345.3.579.2.593 1944 Unknown [id number] 2.16.840.1.806057.3.579.2.593 1944 Unknown [id number] 2.16.840.1.959477.3.579.2.593 1944 Unknown [id number] 2.16.840.1.017813.3.579.2.593 1944 Unknown [id number] 2.16.840.1.757983.3.579.2.593 1944 Unknown [id number] 2.16.840.1.080353.3.579.2.593 1944 Unknown [id number] 2.16.840.1.245199.3.579.2.593 1944 Unknown [id number] 2.16.840.1.044257.3.579.2.593 1944 Unknown [id number] 2.16.840.1.187088.3.579.2.593 1944 Unknown [id number] 2.16.840.1.230150.3.579.2.593 1944 Unknown [id number] 2.16.840.1.373993.3.579.2.593 1944 Unknown [id number] 2.16.840.1.107692.3.579.2.593 1944 Unknown [id number] 2.16.840.1.029114.3.579.2.593 1944 Unknown [id number] 2.16.840.1.684785.3.579.2.593 1944 Unknown [id number] 2.16.840.1.792664.3.579.2.593 1944 Unknown [id number] 2.16.840.1.977187.3.579.2.593 1944 Unknown [id number] 2.16.840.1.522211.3.579.2.593 1944 Unknown [id number] 2.16.840.1.761005.3.579.2.593 1944 Unknown [id number] 2.16.840.1.213360.3.579.2.593 1944 Unknown [id number] 2.16.840.1.048573.3.579.2.593 1944 Unknown [id number] 2.16.840.1.139293.3.579.2.593 1944 Unknown [id number] 2.16.840.1.493303.3.579.2.593 1944 Unknown [id number] 2.16.840.1.194620.3.579.2.593 1944 Unknown [id number] 2.16.840.1.347154.3.579.2.593 1944 Unknown [id number] 2.16.840.1.498143.3.579.2.593 1944 Unknown [id number] 2.16.840.1.109012.3.579.2.593 1944 Unknown [id number] 2.16.840.1.237447.3.579.2.593 1944 Unknown [id number] 2.16.840.1.314773.3.579.2.593 1944 Unknown [id number] 2.16.840.1.347132.3.579.2.593 1944 Unknown [id number] 2.16.840.1.679325.3.579.2.593 1944 Unknown [id number] 2.16.840.1.826656.3.579.2.593 1944 Unknown [id number] 2.16.840.1.920395.3.579.2.593 1944 Unknown [id number] 2.16.840.1.219609.3.579.2.593 1944 Unknown [id number] 2.16.840.1.765621.3.579.2.593 1944 Unknown [id number] 2.16.840.1.260435.3.579.2.593 1944 Unknown [id number] 2.16.840.1.728103.3.579.2.593 1944 Unknown [id number] 2.16.840.1.892747.3.579.2.593 1944 Unknown [id number] 2.16.840.1.697311.3.579.2.593 1944 Unknown [id number] 2.16.840.1.673306.3.579.2.125 9 1944 Unknown [id number] 2.16.840.1.759040.3.579.2.125 9 1944 Unknown [id number] 2.16.840.1.171292.3.579.2.125 9 Medicare Medicare Outpatient [id number] 2T [id number] Unknown [id number] 2.16.840.1.262074.3.579.2.593 Unknown [id number] 2.16.840.1.675251.3.579.2.593 Unknown [id number] 2.16.840.1.195671.3.579.2.531 Social History Date Type Detail Facility Start: 03-09-2011 End: 07-07-2022 Tobacco smoking status [facility] Sex Assigned At Not on file [facility] Start: 03-09-2011 End: 10-20-2022 Cigarettes smoked [...] 5fr Polyurethane Catheter 1 Lumen Microintroducer - [id number] Start: 12-06-2021 Clinical Notes 06-05-2021 to 05-19-2023 Note Date & Type Note Facility 05-19-2023 Note [place] Electrophys[facility] Progress Note Reason for visit: follow [...] about 50-60 systolic. patient with friend/ regional dedicated truck driver from facility, we will take patient to the ER for evaluation ---- --------- Per dr. Alvarez 03/2021 Mr. Almonte Totz , presents to clinic for routine follow [...] of the right coronary artery with robust hulz-hk-pensy collaterals. 5. Normal global left ventricular systolic [...] Follow up with Dr. Galvez in the [facility] in the next 2 weeks; he may follow up with Dr. Orosco as needed for interventional issues. 5. Follow up wi (more content not included)... [facility] 04-11-2023 Evaluation note Encounter Date [...] (ICD-10 - Z89.619) WC dependent. Pain controlled [facility] Other 02-01-2024 History of Present illness Narrative* [...] been checking his blood glucose with a ListMinut shaan 14 CGM - READER- on a daily basis. Heis dipping some overnight as well as after breakfast and lunch. Rising after hypoglycemia. Last A1c: 8.8 on 10/20/2022 Last eye exam: over due Current concerns include: Shaan powers was reading 46 and finger stick read 46. BG increased to 59 mg/dl and rising on cgm prior to him leaving the office. He is being transported by a regional dedicated truck driver. He states he took insulin breakfast and lunch was served early.They gave him his insulin for lunch but he was not very hungry and didn't eat much States bg levels are fluctuating Diet: [facility] provided food Exercise: none [...] chronic kidney disease ([facility]/HCC) - Primary Relevant Medications Lantus SoloStar 100 [...] in the morning. CONTINUOUS BLOOD GLUC SENSOR (DruidlySTYLE SHAAN 14 DAY SENSOR) MISC Inject 1 [...] morning. documented in [facility] [id number] Evaluation note* Encounter Date Diagnosis Assessment Notes [...] are maintaining regular scheduled appts with their research assistant member. No bleeding complications Dec, Hyperlipidemia LDL goal [...] fluid balance and to avoid dehydration. Dec, buttermaker helper (current) use of insulin (ICD-10 - Z79.4) [facility] Other 10-26-2023 Evaluation note* Encounter Date Diagnosis Assessment Notes Treatment Notes Treatment Clinical Notes Nov, Longstanding persistent atrial fibrillation (ICD-10 - I48.11) This patient is in NSR or rate controlled. This patient is anticoagulated to prevent thromboembolic events. They are maintaining regular scheduled appts with their research assistant member. No bleeding complications Nov, Hyperlipidemia LDL goal [...] (current) use of insulin (ICD-10 - Z79.4) [facility] Other 09-28-2023 Evaluation note* Encounter Date Diagnosis [...] are maintaining regular scheduled appts with their research assistant member. No bleeding complications Oct, Type 1 diabetes [...] - Z94.0) Continue routine surveillance labs. Oct, buttermaker helper (current) use of insulin (ICD-10 - Z79.4) [facility] Other 09-01-2023 Miscellaneous Notes* Telephone Encounter - Mary Martinez - 10/16/2022 1:08 PM EDT Pharmacy comment: REQUEST FOR 90 DAYS PRESCRIPTION. DX Code Needed. 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 No bleeding complications Sep, Type 1 diabetes [...] Z94.0) f/u transplant clinic Continue surveillance labs [facility] Other 08-08-2023 Miscellaneous Notes* Telephone Encounter - [...] are maintaining regular scheduled appts with their research assistant member. No s/s bleeding Aug, Type 1 diabetes [...] risk for cerebrovascular and cardiovascular disease. Aug, buttermaker helper (current) use of insulin (ICD-10 - Z79.4) Aug, Kidney transplant status (ICD-10 - Z94.0) Continue close surveillance w/ labs [facility] Other 07-26-2023 NoteUT Electrophysiology Consult Note Reason [...] about 50-60 systolic. patient with friend/ regional dedicated truck driver from facility, we will take patient to the ER for evaluation --------- Per dr. Alvarez 03/2021 Mr. Almonte Totz , presents to clinic for routine follow [...] of the right coronary artery with robust aasc-lm-zighq collaterals. 5. Normal global left ventricular systolic [...] Follow up with Dr. Galvez in the [facility] in the next 2 weeks; he may follow up with Dr. Orosco as needed for interventional issues. 5. Follow up with Dr. Devon Moreira as scheduled. PMH: Past Medical History: Diagnosis Date Abnormal ECG Arrhythmia Atrial fibrillation (CMS/HCC) Chronic kidney disease Coronary artery disease Diabetes mellitus (CMS/HCC) (more content not included)...[facility]07-26-2023 NotePatient here for 1.5 year follow up and device check. Lightheaded in the office today, as BP is very low. He denies chest pain, SOB, palpitations, and bleeding on warfarin. Had routine labs last week. Review of Systems Musculoskeletal: Positive for arthritis, joint pain and myalgias. Neurological: Positive for light-headedness. All other systems reviewed and are negative.[facility] 08-06-2022 Evaluation note* Encounter Date [...] are maintaining regular scheduled appts with their research assistant member. No bleeding complications Jul, Type 1 diabetes [...] risk for cerebrovascular and cardiovascular disease. Jul, penitentiary (current) use of insulin (ICD-10 - Z79.4) Jul, Kidney transplant status (ICD-10 - Z94.0) Monthly labs, ongoing surveillance from transplant clinic [facility] Other 05-15-2023 Progress note Author Sadia Aguilar [facility] June 29, 2022 2:47pm Note Date/Time June 29, 2022 2:46p m [facility] [address] [place] [address] Wound Center Provider Note Signed Patient: Alex Almonte MR#: [id number] : 1945 Acct:[id number] Age/Sex: 76 / M Copies to: DO Sadia Whyte APRN~ HPI Date of Visit Date of Visit: Date of Service: 06/29/2022 Time of Service: 14:45 Narrative HPI: 12/30/21 Alex is a 76 year old male presenting to [facility] wound care for aninitial visit for eval and treatment of a sacral/coccyx area pressure ulcer. He resides at [facility]. There is an LACING PRESSER present for the visit. Medicalhoney gel will [...] his brief that was cleaned by this feature writer as well as another nursing staff [...] from initial visit here Mode of Arrival/ Election Assistant: Facility vehicle Assistive Device Used Today: Wheelchair and Indra Lives with:: Care/Nursing Facility Appetite Description: Within Normal Limits Who helps w/ dressing change?: Nursing Facility Why Do You Need Help?: Can't Reach Ulcer, Limited mobility and Taxing effort to leave home Smoking Status: Former smoker [facility] Medical History (Updated 03/03/22 @ 14:41 [...] Ulcer/Injury Staging: Unstageable Bed Appearance: Beefy Red, Mescal, Yellow and Rolled Edges Percent of Wound [...] <Electronically signed by DAVID Aguilar> 06/29/22 [facility] Work Phone: 1(240) 425-738505-11-2023 Evaluation note* Encounter Date Diagnosis Assessment Notes [...] are maintaining regular scheduled appts with their research assistant member. No bleeding complications June, Hyperlipidemia LDL goal <100 (ICD-10 - E78.5) Instructed on diet and exercise with continued statin therapy.Discussed the beneficial effects of lowering cholesterol in reducing the risk for cerebrovascular and cardiovascular disease. 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 (ICD-10 - Z79.4) June, Kidney transplant status (ICD-10 - Z94.0) No s/s rejection [facility] Other 04-24-2023 Progress note Author Sadia Aguilar [facility] June 08, 2022 2:10pm Note Date/Time June 08, 2022 2:1 0pm [facility] [address] [place] [address] Wound Center Provider Note Signed Patient: Alex Almonte MR#: [id number] : 1945 Acct:[id number] Age/Sex: 76 / M Copies to: DO Sadia Whyte APRN~ HPI Date of Visit Date of Visit: Date of Service: 06/08/2022 Time of Service: 14:07 Narrative HPI: 12/30/21 Alex is a 76 year old male presenting to [facility] wound care for aninitial visit for eval and treatment of a sacral/coccyx area pressure ulcer. He resides at [facility]. There is an LACING PRESSER present for the visit. Medicalhoney gel will [...] his brief that was cleaned by this feature writer as well as another nursing staff [...] from initial visit here Mode of Arrival/ Election Assistant: Facility vehicle Assistive Device Used Today: Wheelchair and Indra Lives with:: Care/Nursing Facility Appetite Description: Within Normal Limits Who helps w/ dressing change?: Nursing Facility Why Do You Need Help?: Can't Reach Ulcer, Limited mobility and Taxing effort to leave home Smoking Status: Former smoker [facility] Medical History (Updated 03/03/22 @ 14:41 [...] Ulcer/Injury Staging: Unstageable Bed Appearance: Beefy Red, Mescal, Yellow and Rolled Edges Percent of Wound [...] by DAVID Aguilar> 06/08/22 [address] [facility] Work Phone: 1(618) 788-718404-21-2023 Evaluation note* Encounter Date Diagnosis Assessment Notes [...] are maintaining regular scheduled appts with their research assistant member. May, penitentiary (current) use of insulin (ICD-10 - Z79.4) May, Kidney transplant status (ICD-10 - Z94.0) routine labs per clinic. 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 No open ulcerations present Pain controlled [facility] Other 03-27-2023 Progress note Author Sadia Aguilar [facility] May 11, 2022 1:41pm Note Date/Time May 11, 2022 1:4 0pm [facility] [address] [place] [address] Wound Center Provider Note Signed Patient: Alex Almonte MR#: [id number] : 1945 Acct:[id number] Age/Sex: 76 / M Copies to: DO Sadia Whyte, DAVID~ HPI Date of Visit Date of Visit: Date of Service: 05/11/2022 Time of Service: 13:38 Narrative HPI: 12/30/21 Alex is a 76 year old male presenting to [facility] wound care for aninitial visit for eval and treatment of a sacral/coccyx area pressure ulcer. He resides at [facility]. There is an LACING PRESSER present for the visit. Medicalhoney gel will [...] his brief that was cleaned by this feature writer as well as another nursing staff [...] from initial visit here Mode of Arrival/ Election Assistant: Facility vehicle Assistive Device Used Today: Wheelchair and Indra Lives with:: Care/Nursing Facility Appetite Description: Within Normal Limits Who helps w/ dressing change?: Nursing Facility Why Do You Need Help?: Can't Reach Ulcer, Limited mobility and Taxing effort to leave home Smoking Status: Former smoker [facility] Medical History (Updated 03/03/22 @ 14:41 [...] Ulcer/Injury Staging: Unstageable Bed Appearance: Beefy Red, Mescal and Yellow Percent of Wound Bed Granulated/Red: [...] <Electronically signed by DAVID Aguilar> 05/11/22 [address] [facility] Work Phone: 1(338) 402-271003-23-2023 Evaluation note* Encounter Date Diagnosis Assessment Notes [...] are maintaining regular scheduled appts with their research assistant member. Apr, Type 1 diabetes mellitus with hyperglycemia [...] Serial labs by clinic Hydrate, avoid NSAIDS [facility] Other 03-10-2023 NoteHNO ID: [id number] Author: Keyur Brown MD Service: ? Author Type: Physician Type: Progress Notes Filed: 04/24/2022 10:32 AM Note Text: Encounter opened in error, patient not seen.[facility]02-28-2023 Progress note Author Sadia Aguilar [facility] April 14, 2022 2:19pm Note Date/Time April 14, 2022 2:18pm [facility] [address] [place] [address] Wound Center Provider Note Signed Patient: Alex Almonte MR#: [id number] : 1945 Acct:[id number] Age/Sex: 76 / M Copies to: Devon Moreira,DO Sadia Aguilar, CORPORATE RISK ANALYST~ HPI Date of Visit Date of Visit: Date of Service: 04/14/2022 Time of Service: 14:18 Narrative HPI: 12/30/21 Alex is a 76 year old male presenting to [facility] wound care for aninitial visit for eval and treatment of a sacral/coccyx area pressure ulcer. He resides at [facility]. There is an LACING PRESSER present for the visit. Medicalhoney gel will [...] his brief that was cleaned by this feature writer as well as another nursing staff [...] from initial visit here Mode of Arrival/ Election Assistant: Facility vehicle Assistive Device Used Today: Wheelchair and Indra Lives with:: Care/Nursing Facility Appetite Description: Within Normal Limits Who helps w/ dressing change?: Nursing Facility Why Do You Need Help?: Can't Reach Ulcer, Limited mobility and Taxing effort to leave home Smoking Status: Former smoker [facility] Medical History (Updated 03/03/22 @ 14:41 [...] Ulcer/Injury Staging: Unstageable Bed Appearance: Beefy Red, Mescal and Yellow Percent of Wound Bed Granulated/Red: [...] signed by DAVID Aguilar> 04/14/221418 [facility] Work Phone: 1(867) 250-295302-16-2023 NotePatient Outreach (KIMBERLY) ALEX ALMONTE ([id number]) 1945 M TRN Date Time Provider Department 04/02/22 V[facility]IVARE[facility] During your visit today, we recorded the following information about you: Allergies As of Date: 04/02/2022 Noted Allergy Reaction PYRIDOSTIGMINE BROMIDE 08/04/2021 8 - GI Upset Date Reviewed: 02/26/2022 Reviewed by: Braden Abel MA - Fully Assessed Visit Diagnosis:Screening for genitourinary condition [Z13.89] Order(s):URINALYSIS, REFLEX MICROSCOPIC [[id number]] Order #: [id number] Prescriptions as of 04/06/2022 - tacrolimus IR [...] by mouth daily with lunch. 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 DIABETES UNCOMPL ADULT-UNCONTRLLED [[id number]] 02/24/2002 KIDNEY TRANSPLANT STATUS [Z94.0] 09/07/2003 PROPHYLACTIC IMMUNOTHERAPY [Z29.8] 07/30/2006 RESIDENTIAL STEROIDS [[id number]] 07/30/2006 VITAMIN D DEFICIENCY NOS [E55.9] 09/07/2008 [...] diabetes mellitus with diabetic peripher*11/29/2021 Atherosclerosis of [place] artery of extremity w*11/29/2021 Malnutrition of moderate degree (HCC) [E44.0] 12/01/2021 Dermatitis associated with moisture [L30.8] 12/04/2021 Encounter Status:Closed by [employer] Grid[employer] TechnologiesUSER on 04/06/22[facility] 03-30-2022 Miscellaneous Notes* Telephone Encounter - [...] [place] [facility]02-07-2023 Progress note Author Sadia Aguilar [facility] March 24, 2022 3:00pm Note Date/Time March 24, 2022 2 :59pm [facility] [address] [place] [address] Wound Center Provider Note Signed Patient: Alex Almonte MR#: [id number] : 1945 Acct:[id number] Age/Sex: 76 / M Copies to: Devon Moreira,DO Sadia Aguilar, CORPORATE RISK ANALYST~ HPI Date of Visit Date of Visit: Date of Service: 03/24/2022 Time of Service: 14:58 Narrative HPI: 12/30/21 Alex is a 76 year old male presenting to [facility] wound care for aninitial visit for eval and treatment of a sacral/coccyx area pressure ulcer. He resides at [facility]. There is an LACING PRESSER present for the visit. Medicalhoney gel will [...] his brief that was cleaned by this feature writer as well as another nursing staff [...] from initial visit here Mode of Arrival/ Election Assistant: Facility vehicle Assistive Device Used Today: Wheelchair and Indra Lives with:: Care/Nursing Facility Appetite Description: Within Normal Limits Who helps w/ dressing change?: Nursing Facility Why Do You Need Help?: Can't Reach Ulcer, Limited mobility and Taxing effort to leave home Smoking Status: Former smoker [facility] Medical History (Updated 03/03/22 @ 14:41 [...] Ulcer/Injury Staging: Unstageable Bed Appearance: Beefy Red, Mescal and Yellow Percent of Wound Bed Granulated/Red: [...] <Electronically signed by DAVID Aguilar> 03/24/22 [address] [facility] Work Phone: 1(393) 918-820301-17-2023 Progress note Author Sadia Aguilar [facility] March 03, 2022 2:41pm Note Date/Time March 03, 2022 2 :41pm [facility] [address] [place] [address] Wound Center Provider Note Signed Patient: Alex Almonte MR#: [id number] : 1945 Acct:[id number] Age/Sex: 76 / M Copies to: DO Sadia Whyte APRN~ HPI Date of Visit Date of Visit: Date of Service: 03/03/2022 Time of Service: 14:38 Narrative HPI: 12/30/21 Alex is a 76 year old male presenting to [facility] wound care for aninitial visit for eval and treatment of a sacral/coccyx area pressure ulcer. He resides at [facility]. There is an LACING PRESSER present for the visit. Medicalhoney gel will [...] his brief that was cleaned by this feature writer as well as another nursing staff [...] from initial visit here Mode of Arrival/ Election Assistant: Facility vehicle Assistive Device Used Today: Wheelchair and Indra Lives with:: Care/Nursing Facility Appetite Description: Within Normal Limits Who helps w/ dressing change?: Nursing Facility Why Do You Need Help?: Can't Reach Ulcer, Limited mobility and Taxing effort to leave home Smoking Status: Former smoker [facility] Medical History (Updated 03/03/22 @ 14:41 [...] Ulcer Pressure Ulcer/Injury Staging: Unstageable Bed Appearance: Mescal and Yellow Percent of Wound Bed Granulated/Red: 90 Percent of Devitalized: 10 Length (cm): 2.2 Width (cm): 1.8 Depth (cm): 1.9 CM Sq: 3.960 Surrounding Tissue Appearance: Mescal, Hyperpigmented and Satellite lesions Surrounding Tissue Temp: [...] by DAVID Aguilar> 03/03/22 14[address] [facility] Work Phone: 1(283) 211-642701-13-2023 Miscellaneous Notes* Telephone Encounter - RAUL Davidson [...] [facility] NoteHNO ID: [id number] Author: Hina Peterson MD Service: ? Author Type: Physician Type: Progress Notes Filed: 02/26/2022 4:31 PM Note Text: [facility] [place] DEPARTMENT OF VASCULAR SURGERY OUTPATIENT VISIT DATE [...] his postop visit. He has been in detention since then and has been recovering from his acute on chronic congestive heart failure. His wound has largely been healing without any issues and the maxwell and sutures were removed at the nursing facility. He comes here with a lateral wound eschar. He denies any fevers, chills, or any drainage. He is on anticoagulation. 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) 11/29/2021 BPH (benign prostatic hyperplasia) CAD (coronary artery disease) 2016 s/p PCI 2016 and CABG 2019 Diabetes mellitus ([facility]) Diabetic neuropathy ([facility]) Diabetic retinopathy ([facility]) HTN (hypertension) Hyperlipidemia Impaired vision in both eyes KIDNEY TRANSPLANT STATUS 09/07/2003 ESRD s/p renal transplant in 2001 on chronic immunosuppression . Patient on mycophenolate mofetil , cellcept and prednisone 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) 11/29/2021 Osteomyelitis ([facility]) 11/29/2021 Paroxysmal atrial fibrillation ([facility]) Renal transplant, status post SA node dysfunction ([facility]) s/p pacemaker Type 2 diabetes mellitus with diabetic neuropathy, with long-term current use of insulin ([facility]) 02/24/2002 PAST SURGICAL HISTORY Procedure Laterality [...] by mouth daily with lunch. Magic Cup Lajas with lunch aspirin, enteric coated (ASPIRIN, ENTERIC COATED) 81 mg EC tablet Take 1 tablet by mouth once daily. predniSONE (DELTASONE) 5 mg tablet TAKE 1 TABLET BY MOUTH EVERY DAY oxyCODONE IR (ROXICODONE) 5 mg immediate release tablet 1-2 tablets by ORAL/FEEDING TUBE route every 3 hours as needed. Food Supplement, Lactose-Free (ENSURE MAX (more content not included)... [facility]01-12-2023 History of Present illness Narrative* Hina Peterson MD - 02/26/2022 4:25 PM EST Images from the original note were not included. [facility] [place] DEPARTMENT OF VASCULAR SURGERY OUTPATIENT VISIT DATE [...] his postop visit. He has been in detention since then and has been recovering from his acute on chronic congestive heart failure. His wound has largely been healing without any issues and the maxwell and sutures were removed at the [facility] facility. He comes here with a lateral wound eschar. He denies any fevers, chills, or any drainage. He is on anticoagulation. PAST MEDICAL HISTORY Diagnosis Date Atherosclerosis of g[place] river artery of extremity with ulceration (HCC) 11/29/2021 [...] type 2 diabetes mellitus (HCC) 11/29/2021 Osteomyelitis ([facility]) 11/29/2021 Paroxysmal atrial fibrillation (HCC) Renal transplant, status post SA node dysfunction ([facility]) s/p pacemaker Type 2 diabetes mellitus with diabetic neuropathy, with long-term current use of insulin ([facility]) 02/24/2002 PAST SURGICAL HISTORY Procedure Laterality [...] by mouth daily with lunch. Magic Cup Lajas with lunch aspirin, enteric coated (ASPIRIN, ENTERIC [...] Alex's nurse Home and cell number(Ask for Jignas nurse) [phone] Diagnosis 4 mo f/u wound check Best regards, Yumiko documented in this encounterSelect Medical Specialty Hospital [...] [place] Progress note Author Sadia Aguilar [facility] February 10, 2022 3:47pm Note Date/Time February 10, 2022 3:47pm [facility] [address] [place] [address] Wound Center Provider Note Signed Patient: Alex Almonte MR#: [id number] : 1945 Acct:[id number] Age/Sex: 76 / M Copies to: DO Sadia Whyte APRN~ HPI Date of Visit Date of Visit: Date of Service: 02/10/2022 Time of Service: 15:44 Narrative HPI: 12/30/21 Alex is a 76 year old male presenting to [facility] wound care for aninitial visit for eval and treatment of a sacral/coccyx area pressure ulcer. He resides at [facility]. There is an LACING PRESSER present for the visit. Medicalhoney gel will [...] his brief that was cleaned by this feature writer as well as another nursing staff member, few weeks to follow up Subjective Pain Coccyx: Pain Description: Intermittent Pain Intensity: 0 Wound/Ulcer History When did wound start?: 4 weeks ago- from initial visit here Mode of Arrival/ Election Assistant: Facility vehicle Assistive Device Used Today: Wheelchair and Indra Lives with:: Care/Nursing Facility Appetite Description: Within Normal Limits Who helps w/ dressing change?: Nursing Facility Why Do You Need Help?: Can't Reach Ulcer, Limited mobility and Taxing effort to leave home Smoking Status: Former smoker [facility] Medical History (Updated 01/20/22 @ 14:21 [...] Ulcer Pressure Ulcer/Injury Staging: Unstageable Bed Appearance: Mescal and Yellow Percent of Wound Bed Granulated/Red: 90 Percent of Devitalized: 10 Length (cm): 2.5 Width (cm): 2.3 Depth (cm): 2.1 CM Sq: 5.750 Surrounding Tissue Appearance: Mescal, Hyperpigmented and Satellite lesions Surrounding Tissue Temp: [...] <Electronically signed by DAVID Aguilar> 02/10/22 15[address] [facility] Work Phone: 1(539) 510-732712-22-2022 NoteHNO ID: [id number] Author: Asia Pike MD Service: ? Author Type: Physician Type: Progress Notes Filed: 02/05/2022 9:38 AM Note Text: [facility] [place] Transplant Follow up Portions of this note [...] date with medications. Patient brought paperwork from [employer] with all medications being received. Patient unsure if they have been drawing labs regularly. Last Tac from 01/19: 12.9 and K 5.9. In need of current labs. Lab orders will be sent with patient and follows as below: Kidney and Pancreas Transplant Standing Lab Orders [address] [place], [place] [address] February 05, 2022 Alex Almonte 1945 [id number] STANDARD TESTING: Diagnosis Codes: Z94.0 Kidney Transplant [...] AT YOUR LABORATORY FACILITY AND FAX TO [phone]. PLEASE CALL [phone]. Provider: Dr. Pike Current Outpatient Medications Medication [...] by mouth daily with lunch. Magic Cup Lajas with lunch aspirin, enteric coated (ASPIRIN, ENTERIC COATED) 81 mg EC tablet Take 1 tablet by mouth once daily. atorvastatin (LIPITOR) 40 mg tablet 1 tablet by ORAL/FEEDING TUBE route daily at bedtime. (more content not included)...[facility]12-22-2022 History of Present illness Narrative* Asia Pike MD - 02/05/2022 8:20 AM EST Images from the original note were not included. [facility] [place] [facility] Follow up Portions of this note [...] snacks patient declined. Indra scale at [facility]: 166.2 lbs per patient. Bed sore on coccyx causing discomfort. Being changed regularly at [facility]- reported to be smaller around but still as deep. Patient not very up to date with medications. Patient brought paperwork from [employer] with all medications being received. Patient unsure if they have been drawing labs regularly. Last Tac from 01/19: 12.9 and K 5.9. In need of current labs. Lab orders will be sent with patient and follows as below: Kidney and Pancreas Transplant Standing Lab Orders [address] [place], [place] [address] February 05, 2022 Alex Almonte 1945 [id number] STANDARD TESTING: Diagnosis Codes: Z94.0 Kidney Transplant [...] AT YOUR LABORATORY FACILITY AND FAX TO [phone]. PLEASE CALL [phone]. Provider: Dr. Pike Current Outpatient Medications Medication [...] by mouth daily with lunch. Magic Cup Lajas with lunch aspirin, enteric coated (ASPIRIN, ENTERIC [...] [place]-20[facility] Progress note Author Sadia Aguilar [facility] January 20, 2022 2:21pm Note Date/Time January 20, 2022 2 :21pm [facility] [address] [place] [address] Wound Center Provider Note Signed Patient: Alex Almonte MR#: [id number] : 1945 Acct:[id number] Age/Sex: 76 / M Copies to: Devon Moreira,DO Sadia Aguilar APRN~ HPI Date of Visit Date of Visit: Date of Service: 01/20/2022 Time of Service: 14:17 Narrative HPI: 12/30/21 Alex is a 76 year old male presenting to [facility] wound care for aninitial visit for eval and treatment of a sacral/coccyx area pressure ulcer. He resides at [facility]. There is an LACING PRESSER present for the visit. Medicalhoney gel will [...] from initial visit here Mode of Arrival/ Election Assistant: Facility vehicle Assistive Device Used Today: Wheelchair and Indra Lives with:: Care/Nursing Facility Appetite Description: Within Normal Limits Who helps w/ dressing change?: Nursing Facility Why Do You Need Help?: Can't Reach Ulcer, Limited mobility and Taxing effort to leave home Smoking Status: Former smoker [facility] Medical History (Updated 01/20/22 @ 14:21 [...] Ulcer Pressure Ulcer/Injury Staging: Unstageable Bed Appearance: Mescal and Yellow Percent of Wound Bed Granulated/Red: 40 Percent of Devitalized: 60 Length (cm): 5.2 Width (cm): 3.4 Depth (cm): 1.8 CM Sq: 17.680 Surrounding Tissue Appearance: Mescal and Hyperpigmented Surrounding Tissue Temp: Warm Drainage [...] by DAVID Aguilar> 01/20/22 [address] [facility] Work Phone: [phone]) 296-464312-06-2022 Miscellaneous Notes* Telephone Encounter - Van Olivarez APRN.CNP - 01/20/2022 1:12 PM EST Labs noted from yesterday. Pt is currently residing at [facility], I spoke with the Nurse, [...] BRIEF OPERATIVE / PROCEDURE NOTE LOG ID: [id number] SURGERY/PROCEDURE DATE: 01/12/2022 INCISION/PROCEDURE START TIME: 10:32 AM INCISION CLOSE/PROCEDURE END TIME: 10:35 AM SURGEON(S)/PROCEDURALIST(S) AND MEDICAL TECHNOLOGIST CHEMISTRY(S): Misbah Landis PA-C SURGERY/PROCEDURE(S): Removal tunneled vascular [...] [phone][facility] andconfirmed appt. for Gerhard removal scheduled on 01/12/22, at [facility]. If instructions are not followed your [...] signed. Arrival at 9:30am to desk QB-1 (Maryan [place]) and check in for your procedure. Reimbursement Liaison/Transportation: How will you be arriving for your procedure? Ambulance service. To be arranged by [facility]. If you develop any of the following symptoms before your procedure, please call [phone]. Chills, joint pain, rash, sore throat, cough, loss of smell, reddened eyes, vomiting, abdominal pains, diarrhea, loss of taste, severe headache, weakness, bruising or bleeding, fever, muscle pain, shortness of breath Recovery expectations: You can expect to be in recovery for 30 minutes following the procedure. Written instructions provided to patient via [employer] If you have any questions please call [phone] documented in this encounterSelect Medical Specialty [facility] [place] [facility]-2022 Progress note Author Sadia Aguilar [facility] December 30, 2021 1:49pm Note Date/Time December 30, 2021 1:49pm [facility] [address] [place] [address] Wound Center Provider Note Signed Patient: Alex Almonte MR#: [id number] : 1945 Acct:[id number] Age/Sex: 76 / M Copies to: DO Sadia Whyte APRN~ HPI Date of Visit Date of Visit: Date of Service: 12/30/2021 Time of Service: 13:44 Narrative HPI: 12/30/21 Alex is a 76 year old male presenting to [facility] wound care for aninitial visit for eval and treatment of a sacral/coccyx area pressure ulcer. He resides at [facility]. There is an LACING PRESSER present for the visit. Medicalhoney gel will [...] start?: 4 weeks ago Mode of Arrival/ Election Assistant: Facility vehicle Assistive Device Used Today: Wheelchair and Indra Lives with:: Care/Nursing Facility Appetite Description: Within Normal Limits Who helps w/ dressing change?: Nursing Facility Why Do You Need Help?: Can't Reach Ulcer, Limited mobility and Taxing effort to leave home Smoking Status: Former smoker [facility] Medical History (Updated 12/30/21 @ 13:49 [...] 0.1 CM Sq: 38.500 Surrounding Tissue Appearance: Mescal and Hyperpigmented Surrounding Tissue Temp: Warm Drainage [...] <Electronically signed by DAVID Aguilar> 12/30/21 134[address] [facility] Work Phone: 1(600) 325-961211-15-2022 History of Present illness Narrative* Paresh Fonseac MD - 12/30/2021 9:52 AM EST INFECTIOUS [...] rehab facility He is currently at [facility] in [facility] Seen on video together with [...] local wound care following this at [facility] WBC 6.0, creatinine -- 0.8. [...] by mouth daily with lunch. Magic Cup Lajas with lunch aspirin, enteric coated (ASPIRIN, ENTERIC [...] is a 76 year old male from [facility]. Here today for copat follow-up for vancomycin x4 weeks for MRSA bacteremia He was transferred from [facility] on 11/28/2021 for further surgical management of infected right heel He has a past medical history of kidney transplant in 2001, left [facility] from previously infected foot ulcers and multiple foot surgeries. History of PAD CAD status post CABG, diabetes, atrial fibrillatioN He originally presented [facility] for having altered mental status and [...] 3. Status post right heel I&D at [facility] on 11/24/2021. 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 4. CKD - s/p gerhard placement 5. immunocompromised Status post right open above the ankle [id number]/17 - Enterobacter and MRSA from cultures Gram-positive [...] will need to coordinate with his SNF [phone] --our ID office will need to arrange for IR gerhard removal. Return to ID as needed 10 Minutes spent via virtual visit. 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 Thanks, Sulma Pardo Brand Marketing Coordinator documented in this encounterSelect Medical Specialty Hospital [facility] [place] [facility]10-31-2022 Miscellaneous Notes* Telephone Encounter - Gwen Alfredo Adm Asst I - 12/15/2021 4:11 PM EDT Rupa LYLES from [facility] [phone] called to report IV Vancomycin was started [...] serious illness Are taking any medications (prescription, ayoc-hie-erivhfo, vitamins, or herbal products) How will I receive EVUSHELD? EVUSHELD consists of two investigational medicines, tixagevimab and cilgavimab. You will receive 1 dose of EVUSHELD, consisting of 2 separate injections (tixagevimab and cilgavimab). EVUSHELD will be given to you by your healthcare provider as 2 intramuscular injections, given one after the other. Viruses can undercover operator time (mutate) and develop into a [...] caused by certain SARS-CoV-2 variants: Viruses can undercover operator time (mutate) and develop into a [...] treatment or prevention of COVID-19 go to https://www.fda.gov/ktatiidku-hufeogqagqkm-xhx- response/ejq-bexoo-jhmykwvwlw-arh-urttil-akxpezpop/uvcqgpvue-rwv-qesndmtbevgxb for more information. It is your choice [...] not go away. Report side effects to [employer] Med[employer] at www.fda.gov/medwatch or call 9-365-JNY-1612 or call [employer] . Additional Information If you have questions, visit the website or call the telephone number provided below. Website Telephone number http://[employer] How can I learn more about COVID-19? Ask your healthcare provider. Visit https://www.cdc.gov/COVID19 Contact your local or state public health department. What is an Emergency Use Authorization? The [place] FDA has made EVUSHELD (tixagevimab co-packaged with cilgavimab) available under an emergency access mechanism called an Emergency Use Authorization EUA. The EUA is supported by a [place] of Health and Human Service (HHS) declaration [...] monohydrate, polysorbate 80, sucrose, water. Distributed by: [employer] [place] Manufactured for: [employer] 2021. All rightsreserved. documented in this encounterSelect Medical Specialty Hospital [facility] [place] [facility]10-21-2022 Miscellaneous Notes* Telephone Encounter - Paresh Fonseca MD - 12/05/2021 3:05 PM EDT Evusheld (tixagevimab/cilgavimab) Eligibility and Patient Discussion The patient agrees to receive Evusheld (tixagevimab 300 mg and cilgavimab 300 mg) at [facility]. The patient verbalized understanding of repeating a COVID test 72 hours prior to the injections. called up patient in response to her [employer] message today she tested covid negative on [...] note were not included. [facility] [place] [facility] Department of Cardiovascular Medicine SECTION [...] DVT scan. Leg elevation. No Reeder DO, [facility] Vascular Medicine documented in this encounterSelect Medical Specialty Hospital - [place] [facility]08-16-2022 History of Past illness Narrative* Problem Noted Date Resolved Date Altered tissue perfusion documented as of this encounter (statuses as of 09/30/2021) [facility] [place] [facility] History of Past illness Narrative* Problem Noted Date Resolved Date Altered tissue perfusion documented as of this encounter (statuses as of 10/09/2021) [facility] [place] [facility] History of Past illness Narrative* Problem Noted Date Resolved Date Altered tissue perfusion documented as of this encounter (statuses as of 11/18/2021) [address]16-2022 History of Past illness Narrative* Problem Noted Date Resolved Date Altered tissue perfusion 16/2 022 documented as of this encounter (statuses as of 12/01/2021) [address]16-2022 History of Past illness Narrative* Problem Noted Date Resolved Date Altered tissue perfusion 16/2 022 documented as of this encounter (statuses as of 12/05/2021) [address]16-2022 History of Past illness Narrative* Problem Noted Date Resolved Date Altered tissue perfusion 16/2 022 documented as of this encounter (statuses as of 12/08/2021) [address]16-2022 History of Past illness Narrative* Problem Noted Date Resolved Date Altered tissue perfusion 09/30/2 022 documented as of this encounter (statuses as of 12/08/2021) [address]16-2022 History of Past illness Narrative* Problem Noted Date Resolved Date Altered tissue perfusion 16/2 022 documented as of this encounter (statuses as of 12/12/2021) [address]16-2022 History of Past illness Narrative* Problem Noted Date Resolved Date Altered tissue perfusion 16/2 022 documented as of this encounter (statuses as of 12/15/2021) [address]16-2022 History of Past illness Narrative* Problem Noted Date Resolved Date Altered tissue perfusion 16/2 022 documented as of this encounter (statuses as of 12/16/2021) [address]16-2022 History of Past illness Narrative* Problem Noted Date Resolved Date Altered tissue perfusion 16/2 022 documented as of this encounter (statuses as of 12/31/2021) [address]16-2022 History of Past illness Narrative* Problem Noted Date Resolved Date Altered tissue perfusion 16/2 022 documented as of this encounter (statuses as of 01/13/2022) [address]16-2022 History of Past illness Narrative* Problem Noted Date Resolved Date Altered tissue perfusion 16/2 022 documented as of this encounter (statuses as of 01/20/2022) [address]16-2022 History of Past illness Narrative* Problem Noted Date Resolved Date Altered tissue perfusion 16/2 022 documented as of this encounter (statuses as of 02/06/2022) [address]16-2022 History of Past illness Narrative* Problem Noted Date Resolved Date Altered tissue perfusion 022 documented as of this encounter (statuses as of 02/20/2022) [address]16-2022 History of Past illness Narrative* Problem Noted Date Resolved Date Altered tissue perfusion 022 documented as of this encounter (statuses as of 02/26/2022) [address]22 History of Past illness Narrative* Problem Noted Date Resolved Date Altered tissue perfusion documented as of this encounter (statuses as of 02/27/2022) [address]22 History of Past illness Narrative* Problem Noted Date Resolved Date Altered tissue perfusion documented as of this encounter (statuses as of 03/21/2022) [address]16-2022 History of Past illness Narrative* Problem Noted Date Resolved Date Altered tissue perfusion documented as of this encounter (statuses as of 03/30/2022) [address]16-2022 History of Past illness Narrative* Problem Noted Date Resolved Date Altered tissue perfusion 022 documented as of this encounter (statuses as of 04/06/2022) [address]16-2022 History of Past illness Narrative* Problem Noted Date Resolved Date Altered tissue perfusion documented as of this encounter (statuses as of 05/13/2022) [address]16-2022 History of Past illness Narrative* Problem Noted Date Diagnosed Date Resolved Date Altered tissue perfusion documented as of this encounter (statuses as of 2022) [address]16-2022 History of Past illness Narrative* Problem Noted Date Diagnosed Date Resolved Date Altered tissue perfusion documented as of this encounter (statuses as of 10/29/2022) [address]16-2022 Miscellaneous Notes* Telephone Encounter - Katina Azevedodiann - 09/30/2021 11:58 AM EDT Patient's request for medication is as follows: Requested Prescriptions Pending Prescriptions Disp Refills tacrolimus IR (PROGRAF) 1 mg capsule [Pharmacy Med Name: TACROLIMUS 1 MG CAPSULE (IR)] 60 capsule 11 Sig: TAKE 1 CAPSULE BY MOUTH TWICE A DAY*Z94.0* Please approve the above prescription(s) to electronically send to pharmacy. Katina Duque documented in this [facility]05-31-2022 Miscellaneous Notes* Telephone Encounter - [...] understands. Van Olivarez APRN.CNP [facility] Screening for genitourinary condition Screening for other and unspecified genitourinary condition documented in this encounter [facility] note* Diagnosis Acute deep vein thrombosis (DVT) of proximal end of right lower extremity ([facility])- Primary PAD (peripheral artery disease) ([facility]) Peripheral vascular disease, unspecified Nonhealing ulcer of heel ([facility]) Anticoagulation management encounter Encounter for therapeutic drug monitoring documented in this encounter [facility] note* Diagnosis Encounter for prophylactic measures, unspecified- Primary documented in this encounter [facility] note* Diagnosis Kidney replaced by transplant- Primary documented in this encounter [facility] note* Diagnosis MRSA bacteremia- Primary Bacteremia Diabetic foot ulcer with osteomyelitis ([facility]) Type II or unspecified type diabetes mellitus with other specified manifestations, not stated as uncontrolled ILIANA (acute kidney injury) ([facility]) Acute kidney failure, unspecified documented in this encounter [facility] note* Diagnosis Kidney replaced by transplant- Primary 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 penitentiary current use of immunosuppressive drug documented in this encounter [facility] note* Diagnosis Hx of BKA, right (HCC)- Primary PAD (peripheral artery disease) ([facility]) Peripheral vascular disease, unspecified Mixed hyperlipidemia due to type 2 diabetes mellitus ([facility]) Type II or unspecified type diabetes mellitus with renal manifestations, uncontrolled(250.42) Type II or unspecified type diabetes mellitus with renal manifestations, uncontrolled Type 2 diabetes mellitus with diabetic neuropathy, with long-term current use of insulin (HCC) Type 2 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, with long-term current use of insulin ([facility]) Paroxysmal atrial fibrillation ([facility]) Atrial fibrillation documented in this encounter [facility] note* Diagnosis Screening for genitourinary condition Screening for other and unspecified genitourinary condition documented in this encounter [facility] note* Diagnosis Onset Date Resolution Status At high risk for skin breakdown chronic Diabetes chronic Fecal incontinence chronic Limited mobility chronic Poor appetite chronic Pressure ulcer of sacral region, unstageable chronic Candidiasis resolved [facility] Work Phone: Evaluation noteNo [employer] Other Evaluation note* Diagnosis Kidney replaced by transplant- Primary documented in this encounter [facility] note* Diagnosis 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 ([facility]/HCC) [facility] [...] Surgical History INS ENDOVAS VENA CAVA FILTR Surgical History COLONOSCOPY 1995,2001, 2014 Hospitalization History see above [employer] Other Progress note Author Sadia Aguilar [facility] July 20, 2022 1:48pm Note Date/Time July 20, 2022 1:48p m [facility] [address] [place] [address] Wound Center Provider Note Signed Patient: Alex Almonte MR#: [id number] : 1945 Acct:[id number] Age/Sex: 76 / M Copies to: DO Sadia Whyte APRN~ HPI Date of Visit Date of Visit: Date of Service: 07/20/2022 Time of Service: 13:46 Narrative HPI: 12/30/21 Alex is a 76 year old male presenting to [facility] wound care for aninitial visit for eval and treatment of a sacral/coccyx area pressure ulcer. He resides at [facility]. There is an LACING PRESSER present for the visit. Medicalhoney gel will [...] his brief that was cleaned by this feature writer as well as another nursing staff [...] from initial visit here Mode of Arrival/ Election Assistant: Facility vehicle Assistive Device Used Today: Wheelchair and Indra Lives with:: Care/Nursing Facility Appetite Description: Within Normal Limits Who helps w/ dressing change?: Nursing Facility Why Do You Need Help?: Can't Reach Ulcer, Limited mobility and Taxing effort to leave home Smoking Status: Former smoker [facility] Medical History (Updated 03/03/22 @ 14:41 [...] <Electronically signed by DAVID Aguilar> 07/20/22 1348 [facility] Work Phone: Reason for referral (narrative)* Outpatient Procedure (Routine) - Authorized Specialty Diagnoses / Procedures Referred By Felicia t Referred To [facility] Diagnoses PAD (peripheral artery disease) (HCC) Nonhealing ulcer of heel (HCC) Procedures US LEG ARTERIAL PERIPH UNL VAS LAB DUP-SCAN LXTR ART/ARTL BPGS UNI/LMTD STUDY Reeder, No, DO [address] [place] [address] [facility] [place] [address] Referral ID Status Reason Start Date Expiration Date Visits Requested Visits Authorized [id number] Authorized Auto-Generat ed Referral 11/17/2021 11/17/2022 1 1 * Outpatient Procedure (Routine) - Authorized Specialty Diagnoses / Procedures Referred By Contac t Referred To Contact [facility] Diagnoses Acute deep vein thrombosis (DVT) of proximal end of right lower extremity (HCC) Procedures US LEG VEIN DVT UNL VAS LAB DUP-SCAN XTR VEINS UNILATERAL/[place] [address] [place] [address] [place] [address] Referral ID Status Reason Start Date Expiration Date Visits Requested Visits Authorized [id number] Authorized Auto-Generat ed Referral 11/17/2021 11/17/2022 1 1 * Consult, Test, Treat (Routine) - Authorized Specialty Diagnoses / Procedures Referred By Contac t Referred To Contact Cardiology Diagnoses PAD (peripheral artery disease) (HCC) Nonhealing ulcer of heel (HCC) Procedures CONSULT TO CARDIOLOGY OFFICE/OUTPATIENT [facility] 60-74 MINUTES Savanah Marcelo MD [address] [place] [address] Referral ID Status Reason Start Date Expiration Date Visits Requested Visits Authorized [id number] Authorized PCP Requested Referral 11/17/2021 11/17/2022 1 1 [facility] Summary Purpose Family History No Family History Records Found Relationship Condition Age at Onset Recorded Date/T kartik father Aneurysm Unknown father Parkinson's disease Unknown Advance Directives No Advanced Directives Records FoundDocuments on File Type Date Recorded Patient Tool Planner Expl anation Advance Directive(s) Latest Code Status [...] Maker Relationship: M ajority of Adult Siblings (contact representative) DNR-CCA 09/26/2021 11:56 AM 10/01/2021 2:18 [...] Decision Maker Relationship: Majority of Adult Siblings (contact representative) Code Status History Code Status Date [...] Reason for Visit Chief Complaint Open Wound ([facility]) Reason for Visit At high [...] and content) DATE CREATED AUTHOR 02/20/2021 [employer] DATE CREATED AUTHOR AUTHOR'S ORGANIZ ATION 07/25/2022 [facility] DATE CREATED AUTHOR AUTHOR'S ORGANIZ ATION 08/16/2022 [facility] DATE CREATED AUTHOR AUTHOR'S ORGANIZ ATION 01/14/2023 [facility] DATE CREATED AUTHOR AUTHOR'S ORGANIZ ATION 09/05/2023 [facility] DATE CREATED AUTHOR AUTHOR'S ORGANIZ ATION 09/20/2023 [facility] EPIC Source Comments (unrecognize d [...] Care Teams (unrecognized sec tion and content) Caster Helper Relationship Specialty Start Date End Date LillieDevon, DO [address] [place] [address] PCP - General 05/27/00 Caster Helper Relationship Specialty Start Date End Date Devon Moreira, DO [address] [place] [address] PCP - General 05/27/00 Caster Helper Relationship Specialty Start Date End Date Devon Moreira, DO [address] [place] [address] PCP - General 05/27/00 Caster Helper Relationship Specialty Start Date End Date Devon Moreira, DO [address] [place] [address] PCP - General 05/27/00 Caster Helper Relationship Specialty Start Date End Date Devon Moreira, DO [address] [place] [address] PCP - General 05/27/00 Caster Helper Relationship Specialty Start Date End Date Devon Moreira, DO [address] [place] [address] PCP - General 05/27/00 Caster Helper Relationship Specialty Start Date End Date Devon Moreira, DO [address] [place] [address] PCP - General 05/27/00 Caster Helper Relationship Specialty Start Date End Date Devon Moreira, DO [address] [place] [address] PCP - General 05/27/00 Caster Helper Relationship Specialty Start Date End Date Devon Moreira, DO [address] [place] [address] PCP - General 05/27/00 Caster Helper Relationship Specialty Start Date End Date Devon Moreira, DO [address] [place] [address] PCP - General 05/27/00 Caster Helper Relationship Specialty Start Date End Date Devon Moreira, DO [address] [place] [address] PCP - General 05/27/00 Caster Helper Relationship Specialty Start Date End Date Devon Moreira, DO [address] [facility] [place] [address] PCP - General 05/27/00 Caster Helper Relationship Specialty Start Date End Date Devon Moreira, DO [address] [facility] [place] [address] PCP - General 05/27/00 Caster Helper Relationship Specialty Start Date End Date Devon Moreira, DO [address] [facility] [place] [address] PCP - General 05/27/00 Caster Helper Relationship Specialty Start Date End Date Devon Moreira, DO [address] [facility] [place] [address] PCP - General 05/27/00 Caster Helper Relationship Specialty Start Date End Date Devon Moreira, DO [address] [facility] [place] [address] PCP - General 05/27/00 Caster Helper Relationship Specialty Start Date End Date Devon Moreira, DO [address] [facility] [place] [address] PCP - General 05/27/00 Caster Helper Relationship Specialty Start Date End Date Devon Moreira, DO [address] [facility] [place] [address] PCP - General 05/27/00 Caster Helper Relationship Specialty Start Date End Date Devon Moreira, DO [address] [facility] [place] [address] PCP - General 05/27/00 Team Status: Active Member Role Status Dates Devon Moreira DO Primary Care Provider Active Team Status: Inactive Member Role Status Dates Devon Moreira DO Primary Care Provider Active Sadia Aguilar APRN Attending Provider Active Caster Helper Relationship Specialty Start Date End Date Devon Moreira, DO [address] [place] [address] PCP - General 05/27/00 Caster Helper Relationship Specialty Start Date End Date Devon Moreira DO [address] [place] [address] PCP - General 05/27/00 Caster Helper Relationship Specialty Start Date End Date Ni Cabrera, [address] [facility] [address] [place] [address] PCP - ACO Reach 07/09/22 Devon Moreira MD [address] [place] [id number] PCP - General Internal Medicine 07/14/22 PRN Active and Recently Administ ered Medications (unrecognized section and content) Medication Order 01/10/2022 01/11/2022 01/12/2022 lidocaine (PF) 10 mg/mL (1 %) injection (XYLOCAINE) SUBCUTANEOUS, X (OR/PROCEDURE) PRN, Starting on Wed01/12/22 at 1032, Until Wed01/13/22 at 0303, Intraprocedure 1032 (Given - Provid er: Vani Hdz APRN.WORKFORCE DEVELOPMENT ASSISTANT) Goals (unrecognized section and content) Goals may [...] BE BASED ON THE PRIMARY CLINICAL RECORDS. [employer] [facility]. provides no warranty or guarantee of the accuracy or completeness of information in this document.
[2023-09-20 13:19] LABS: Basophils Percent Auto 0.7 % (0.2-2.0); Eosinophils Absolute Auto 0.2 10^3/uL (0.0-0.7); Eosinophils Percent Auto 3.5 % (0.9-7.0); Hematocrit 28.3 % (42.0-54.0); Hemoglobin 8.4 g/dL (14.0-18.0); Immature Granulocytes Abs Auto 0.01 10^3/uL (0.00-0.03); Immature Granulocytes Pct Auto 0.2 % (0.0-0.5); Lymphocytes Absolute Auto 1.7 10^3/uL (1.2-3.8); Lymphocytes Percent Auto 28.1 % (20.5-60.0); Mean Corpuscular HGB Conc 29.7 g/dL (29.9-35.2); Mean Corpuscular Hemoglobin 24.7 pg (25.9-34.0); Mean Corpuscular Volume 83.2 fL (80.0-94.0); Mean Platelet Volume 11.6 fL (9.5-13.5); Monocytes Absolute Auto 0.6 10^3/uL (0.3-0.8); Neutrophils Absolute Auto 3.5 10^3/uL (1.4-6.5); Neutrophils Percent Auto 57.5 % (43.0-75.0); Platelet Count 310 10^3/uL (150-450); Red Cell Distribution Width 21.8 % (11.0-15.0)
== END 2023-09-20 11:43 | disposition home or self-care (01) ==
LOC: LAB 11:42
PROVIDERS: PCP Internal Medicine; Visit Provider Internal Medicine
DX: I12.0 Hypertensive chronic kidney disease with stage 5 chronic kidney disease or end stage renal disease (principal); N18.6 End stage renal disease; Z94.0 Kidney transplant status
CPT/HCPCS: 36415; 85025

== ENCOUNTER 2023-09-22 01:54 | Outpatient (REF) | payer MEDICARE, OTHER, SELFPAY ==
--- OUTSIDE RECORDS SUMMARY | 2023-09-22 02:00 | XMS_ITS | CCD ---
Author Organization [facility] Inform ion Partnership [facility] Care Team Providers Care Advisory Software Engineer Name Role Phone PROVIDER, UNKNOWN Attending [...] Care Unavailable WILLIAM BROOKS Attending Unavailable TODD, WILLIMA Cortes Admitting Unavailable WILLIAM BROOKS Consulting Unavailable [...] Primary Care Unavailable PetznNi mallory DO Unavailable Devon Moreira MD Primary Care [...] Drug Allergy 2 GI Upset [facility] Work Phone: (1 source) Pyridostigmine Drug Allergy [...] Indications: Type 1 diabetes mellitus with nephropathy ([facility]) 3 units breakfast, 5 units lunch, 8 [...] 10 units and notify provider [facility] [place] [place] 155-852-130 MG (6 sources) take 155-852 tablets by mouth twice daily [facility] [place] [place] 155-852-130 MG 1 tablet Orally twice daily Active take 155-852 tablets by mouth four times daily take 155-852 tablets by mouth four times daily [facility] [place] [place] 155-852-130 MG 1 tablet Orally Four times [...] Comment on above: TAKE 1 TABLET BY EDBI TH EVERY DAY Probiotic (4 sources) Probiotic [...] needed. docusate sodium 50 mg / sennosides, care home 8.6 mg oral tablet (20 sources) [...] by mouth daily with lunch. Magic Cup [place] with lunch 7110 mL 0 12/11/2021 Active Comment on above: Take 237 mL by mouth daily with lunch. Magic Cup [place] with lunch polyethylene glycol 3350 20252 mg powder for oral solution (20 sources) [...] Start: 01-23-2019 take 1 capsule by mo [facility] twice daily tacrolimus IR (PROGRAF) 1 mg capsule Take 1 capsule by mouth twice daily. 180 capsule 3 10/09/2021 Suspended Comment on above: TAKE 1 CAPSULE BY MO UT TWICE A DAY*Z94.0* Take 1 capsule by mo ut twice daily. Take 2 capsules by m out DAILY (6 AM). Take 1 capsule by mo [facility] DAILY AT 6 PM. TAKE 2 CAPSULES [...] Coronary arteriosclerosis; Translations: [Atherosclerotic heart disease of [place] coronary artery without angina pectoris] Onset: 7 [...] use of immunosuppressive drug; Translations: [Other intermediate (current) drug therapy] Episodic Other aftercare (13 sources) Long-term current use of insulin; Translations: [FCI (current) use of insulin] Episodic Other aftercare (10 sources) rn long term care (current) use of insulin; Translations: [FPC CURRENT USE OF INSULIN] Onset: 2 Episodic Other aftercare (5 sources) rn long term care (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 of anticoagulants; Translations: [FPC CURRNT [...] Episodic Other aftercare (2 sources) Other intermediate (current) drug therapy; Translations: [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] Onset: 02-05-2022 Episodic Other aftercare (4 sources) Encounter for orthopedic aftercare following surgical amputation; Translations: [ENC ORTHOPED AFTERCARE FLW SURG AMP] Onset: 02-05-2022 Episodic Other aftercare (4 sources) rn long term care (current) use of antibiotics; Translations: [FPC CURRENT USE ANTIBIOTICS] Onset: 12-20-2021 Episodic Other aftercare (1 source) rn long term care (current) use of aspirin; Translations: [FPC CURRENT [...] Range Facility Office Visiton 05-19-2023 Follow-up visit [id number] Alex Almonte 1945 M Date Provider Department Center 05/19/2023 CAITY PALACIOS CARD [facility] Family History Problem Relation Age of Onset Cancer Mother Aneurysm Father Cancer Father Parkinsonism Father Family Status - Relation Status Age at Mother Father Level of Service:11888 ID OFFICE/OUTPATIENT ESTABLISHED LOW MDM 20 MIN Reason for Visit and Comments: Follow-up [586246] - 6 month follow up Normal [facility] HbA1c (Bld) [Mass fraction]o n 03-18-2023 Interpretation and review of laboratory results Normal [facility] POCT glycosylated hemoglobin (Hb A1C) docked deviceon 03-18-2023 HbA1c (Bld) [Mass fraction] 7.8 % [facility] CNPNon 12-25-2022 CNPN Telephone (TXCTGL) ALEX ALMONTE ([id number]) 1945 M Date Time Provider Department 12/25/22 [facility] During your visit today, we recorded the following information about you: Duane Ryan 12/25/2022 10:41 AM Signed Labs 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 Magic Cup [place] with lunch aspirin, enteric coated (ASPIRIN, ENTERIC [...] am? thanks! RF Pts RN at [facility] reports pts sister picks up [...] Apply 0. (more content not included)... Normal [facility] Office Visiton 09-09-2022 Follow-up visit [id number] Alex Almonte Kate 1945 M Date Provider Department Center 09/09/2022 1596-SARTHAK PARNELL CARD [facility] Family History Problem Relation Age of Onset Cancer Mother Aneurysm Father Cancer Father Parkinsonism Father Family Status - Relation Status Age at Mother Father Level of Service:30279 ID OFFICE/OUTPATIENT ESTABLISHED MOD MDM 30-39 MIN Normal [facility] Glucose Poct Glucometerson 0 07-20-2022 Commemt1 Glu2: Cleaned Meter Normal [facility] Comment on above: Result Comment: PERF ORMED BY: [facility] [address] [place] [id number] PATHOLOGIST BACON STRINGER JOSE F ELLIOTT M.D. Performed By: #### G MADY #### Point of Care testing , Glucose [Mass/Vol] 176 mg/dL Normal [facility] Comment on above: Result Comment: [facility] Glucose Reference Range is dependent on time and content of last meal. Glucose of more than 200 mg/dL in a nonstressed, ambulatory subject supports the diagnosis of Diabetes Mellitus. Performed By: #### G MADY #### Point of Care testing , FK506 (TACROLIMUS) WHOLE BLO ODon 07-12-2022 Tacrolimus (FK506), Blood 10.9 ng/mL Normal 2.0-20.0 [facility] Comment on above: Result Comment: Trou gh (immediately following transplant) 15.0 . Trough (steady state, 2 weeks or more after transplant): 3.0 - 8.0 . Performed by LC-MS/MS technology. Performed By: #### F K506T ####[facility] Pdwmmvesht[address] [place], [place] [address]Dr. Farhat Leal CBC AUTO DIFFon 07-10-2022 BASO # 0.0 103/ul Normal 0.0-0.1 [facility] Comment on above: Performed By: #### C BC ####[facility] Dfiqjku[address] [place], [place] [address]Dr. Farhat Leal Basophils/100 WBC (Bld) 0.5 % Normal 0.2-2.0 [facility] Comment on above: Performed By: #### C BC ####[facility] Qtpkmbkbxk[address] [place], [place] [address]Dr. Farhat Leal EO # 0.3 103/ul Normal 0.0-0.7 [facility] Comment on above: Performed By: #### C BC ####[facility] Oicjosuroq204[address] [place], [place] [address]Dr. Farhat Leal Eosinophils/100 WBC (Bld) 4.9 % Normal 0.9-7.0 [facility] Comment on above: Performed By: #### C BC ####[facility] Mklvoakuzp[address] [place], [place] [address]Dr. Farhat Leal Erythrocyte distribution width (RBC) [Ratio] 13.8 % Normal 11.0-15.0 [facility] Comment on above: Performed By: #### C BC ####[facility] [address]wr[address] [place] [address]Dr. Farhat Leal Hematocrit (Bld) [Volume fraction] 36.6 % Critically low 42.0-54.0 [facility] Comment on above: Performed By: #### C BC ####[facility] Bugvohpahr[address] [place], [place] [address]Dr. Farhat Leal Hemoglobin (Bld) [Mass/Vol] 12.2 g/dL Critically low 14.0-18.0 [facility] Comment on above: Performed By: #### C BC ####[facility] Kgoijgicll[address] [place], [place] [address]Dr. Farhat Leal IG # 0.01 10e3/ul Normal 0.00-0.03 [facility] Comment on above: Performed By: #### C BC ####[facility] Dktetdvhmx[address] [place], [place] [address]Dr. Madelynlorri Leal IG % 0.2 % Normal 0.0-0.5 [facility] Comment on above: Performed By: #### C BC ####[facility] Phbvvyvfza9[address] [place], [place] [address]Dr. Farhat Leal LYMPH # 2.2 103/ul Normal 1.2-3.8 [facility] Comment on above: Performed By: #### C BC ####[facility] Vcptrdcmmj[address] [place], [place] [address]Dr. Madelynlorri Leal Lymphocytes/100 WBC (Bld) 33.9 % Normal 20.5-60.0 [facility] Comment on above: Performed By: #### C BC ####[facility] Wznslbdoej7[address] [place], [place] [address]Dr. Farhat Leal MANUAL DIFF REQ NO Normal [facility] Comment on above: Performed By: #### C BC ####[facility] Vihqymbupa[address] [place], [place] [address]Dr. Farhat Leal MCH (RBC) [Entitic mass] 31.0 pg Normal 25.9-34.0 [facility] Comment on above: Performed By: #### C BC ####[facility] Kibnixmkpg[address] [place], [place] [address]Dr. Farhat Leal MCHC (RBC) [Mass/Vol] 33.3 g/dL Normal 29.9-35.2 [facility] Comment on above: Performed By: #### C BC ####[facility] Zfjtcwvfoy[address] [place], [place] [address]Dr. Farhat Elvis MCV (RBC) [Entitic vol] 93.1 fL Normal 80.0-94.0 [facility] Comment on above: Performed By: #### C BC ####[facility] Vzhufetnth[address] [place], [place] [address]Dr. Farhat Leal MONO # 0.7 103/ul Normal 0.3-0.8 [facility] Comment on above: Performed By: #### C BC ####[facility] Ynaalgkgns[address] [place], [place] [address]Dr. Farhat Leal Monocytes/100 WBC (Bld) 10.8 % Normal 1.7-12.0 [facility] Comment on above: Performed By: #### C BC ####[facility] Hfbmmfoixk[address] [place], [place] [address]Dr. Madelynlorri Elvis NEUT # 3.2 103/ul Normal 1.4-6.5 [facility] Comment on above: Performed By: #### C BC ####[facility] Vbapkecptt[address] [place], [place] [address]Dr. Farhat Leal Neutrophils/100 WBC (Bld) 49.7 % Normal 43.0-75.0 [facility] Comment on above: Performed By: #### C BC ####[facility] Mekgidokjg[address] [place], [place] [address]Dr. Farhat Leal Platelet mean volume (Bld) [Entitic vol] 10.9 fL Normal 9.5-13.5 [facility] Comment on above: Performed By: #### C BC ####[facility] Z[address]iyw[address] [place] [id number]. Farhat Leal PLT 195 103/ul Normal 150-450 [facility] Comment on above: Performed By: #### C BC ####[facility] Gxbbyuib[address] [place] [address]Dr. Farhat Leal RBC 3.93 106/ul Critically low 4.70-6.10 [facility] Comment on above: Performed By: #### C BC ####[facility] F[address] [place] [address]Dr. Farhat Leal WBC 6.4 103/ul Normal 4.0-11.0 [facility] Comment on above: Performed By: #### C BC ####[facility] Oflktklnka[address] [place], [place] [address]Dr. Farhat Leal MAGNESIUMon 07-10-2022 Magnesium [Mass/Vol] 1.9 mg/dL Normal 1.8-2.4 [facility] Comment on above: Performed By: #### M Anais PHOS ####[facility] Clrtiyynoc[address] [place], [place] [address]Dr. Farhat Leal PHOSPHORUSon 07-10-2022 Phosphate [Mass/Vol] 4.7 mg/dL Normal 2.6-4.7 [facility] Comment on above: Performed By: #### M Anais PHOS ####[facility] Emiwmaqmlg[address] [place], [place] [address]Dr. Farhat Leal PROF 14(COMP METB)on 023 Albumin [Mass/Vol] 2.7 g/dL Critically low 3.4-5.0 [facility] Comment on above: Performed By: #### C MP ####[facility] Pxukxd[address]zta[address] [place] [address]Dr. Farhat Leal Albumin/Globulin [Mass ratio] 0.8 {ratio} Normal [facility] Comment on above: Performed By: #### C MP ####[facility] K[address]xbnsgapw86[address] [place] [address]Dr. Farhat Leal ALP [Catalytic activity/Vol] 59 U/L Normal 46-116 [facility] Comment on above: Performed By: #### C MP ####[facility] [address]etxak[address] [place] [id number]. Farhat Leal ALT [Catalytic activity/Vol] 16 U/L Normal 16-63 [facility] Comment on above: Performed By: #### C MP ####[facility] Ervurbilsu87[address] [place] [id number]. Farhat Leal Anion gap [Moles/Vol] 12.3 mmol/L Normal [facility] Comment on above: Performed By: #### C MP ####[facility] Ckcczddvka50[address] [place] [id number]. Farhat Leal AST [Catalytic activity/Vol] 17 U/L Normal 15-37 [facility] Comment on above: Performed By: #### C MP ####[facility] Lacepxsdnn[address] [place], [place] [address]Dr. Farhat Leal Bilirubin [Mass/Vol] 0.5 mg/dL Normal 0.2-1.0 [facility] Comment on above: Performed By: #### C MP ####[facility] Jncizvlbde57[address] [place] [address]Dr. Farhat Leal Calcium [Mass/Vol] 8.5 mg/dL Normal 8.5-10.1 [facility] Comment on above: Performed By: #### C MP ####[facility] Qwtnmkwuxh[address]16 [place] [address]Dr. Farhat Elvis Chloride [Moles/Vol] 104 mmol/L Normal 98-107 [facility] Comment on above: Performed By: #### C MP ####[facility] [address]rs[address]lne[address] [place], [place] [address]Dr. Farhat Leal CO2 [Moles/Vol] 27.6 mmol/L Normal 21.0-32.0 [facility] Comment on above: Performed By: #### C MP ####[facility] L[address]ucdqlnx[address] [place], [place] [address]Dr. Farhat Leal Creatinine [Mass/Vol] 1.79 mg/dL Critically high 0.70-1.30 [facility] Comment on above: Performed By: #### C MP ####[facility] [address]fq[address] [place], [place] [address]Aa. Farhat Leal EGFR-AF [place] 45 mL/min/1.73m2 Critically low >=60 [facility] Comment on above: Performed By: #### C MP ####[facility] Xhghtxzule87[address] [place] [id number]. Farhat Leal EGFR-NON AF [place] 37 mL/min/1.73m2 Critically low >=60 [facility] Comment on above: Performed By: #### C MP ####[facility] S[address]qkwusgpm4912 [place] [id number]. Farhat Leal Globulin (S) [Mass/Vol] 3.2 g/dL Normal [facility] Comment on above: Performed By: #### C MP ####[facility] Hfkljebjfd28[address] [place] [id number]. Farhat Leal Glucose [Mass/Vol] 203 mg/dL Critically high 74-106 [facility] Comment on above: Performed By: #### C MP ####[facility] Scsjvuvdyp7024 [place] [id number]. Farhat Leal Potassium [Moles/Vol] 3.9 mmol/L Normal 3.5-5.1 [facility] Comment on above: Performed By: #### C MP ####[facility] Pkwchrmkhy[address] [place] [id number]. Farhat Leal Protein [Mass/Vol] 5.9 g/dL Critically low 6.4-8.2 [facility] Comment on above: Performed By: #### C MP ####[facility] Nnfnbqklji43[address] [place] [id number]. Farhat Leal Sodium [Moles/Vol] 140 mmol/L Normal 136-145 [facility] Comment on above: Performed By: #### C MP ####[facility] Gjnwbhhjnm4537 [place] [id number]. Farhat Leal Urea nitrogen [Mass/Vol] 61.0 mg/dL Critically high 7.0-18.0 [facility] Comment on above: Performed By: #### C MP ####[facility] R[address]wnuqted[address] [place] [address]Dr. Farhat Leal Urea nitrogen/Creatinine [Mass ratio] 34.1 mg/mg Normal [facility] Comment on above: Performed By: #### C MP ####[facility] [address]cqcu[address] [place] [address]Dr. Farhat Leal PROTIMEon 07-10-2022 INR Coag (PPP) [Relative time] 2.95 {INR} Normal [facility] Comment on above: Performed By: #### P T ####[facility] Ancmcamhjh[address] [place], [place] [address]Dr. Farhat Leal INR GUIDELINES SEE BELOW Normal [facility] Comment on above: Result Comment: MALINA RED INR: 2.0 - 3.0 CONDITIONS NOT LISTED BELOW 2.5 - 3.5 FOR PROSTHETIC HEART VALVE REPLACEMENT 2.5 - 3.5 RECURRENT THROMBOSIS Performed By: #### P T ####[facility] Ppkrenzeks[address] [place], [place] [address]Dr. Farhat Leal PT Coag (PPP) [Time] 29.4 s Critically high 9.0-11.6 [facility] Comment on above: Performed By: #### P T ####[facility] Uyybaf[address]yt[address] [place], [place] [address]Dr. Farhat Leal FK506 (TACROLIMUS) WHOLE BLO ODon 07-07-2022 Tacrolimus (FK506), Blood 8.3 ng/mL Normal 2.0-20.0 [facility] Comment on above: Result Comment: Trou gh (immediately following transplant) 15.0 . Trough (steady state, 2 weeks or more after transplant): 3.0 - 8.0 . Performed by LC-MS/MS technology. Performed By: #### F K506T ####[facility] Pksrgspudo[address] [place], [place] [address]Dr. Farhat Leal CBC AUTO DIFFon 07-03-2022 BASO # 0.0 103/ul Normal 0.0-0.1 [facility] Comment on above: Performed By: #### C BC ####[facility] [address]qxpvyj[address] [place], [place] [address]Dr. Farhat Leal Basophils/100 WBC (Bld) 0.6 % Normal 0.2-2.0 [facility] Comment on above: Performed By: #### C BC ####[facility] Kykocinprt[address] [place] [id number]. Farhat Leal EO # 0.3 103/ul Normal 0.0-0.7 [facility] Comment on above: Performed By: #### C BC ####[facility] Vmezymcpox[address]24 [place] [address]Dr. Farhat Leal Eosinophils/100 WBC (Bld) 4.1 % Normal 0.9-7.0 [facility] Comment on above: Performed By: #### C BC ####[facility] Lkjsbdckyp[address] [place], [place] [address]Dr. Farhat Leal Erythrocyte distribution width (RBC) [Ratio] 14.0 % Normal 11.0-15.0 [facility] Comment on above: Performed By: #### C BC ####[facility] T[address]tekp[address] [place], [place] [address]Dr. Farhat Leal Hematocrit (Bld) [Volume fraction] 35.9 % Critically low 42.0-54.0 [facility] Comment on above: Performed By: #### C BC ####[facility] K[address]oktrjak[address] [place] [id number]. Farhat Leal Hemoglobin (Bld) [Mass/Vol] 12.0 g/dL Critically low 14.0-18.0 [facility] Comment on above: Performed By: #### C BC ####[facility] [address]kwpskv[address] [place] [address]Dr. Farhat Leal IG # 0.04 10e3/ul Critically high 0.00-0.03 [facility] Comment on above: Performed By: #### C BC ####[facility] Zt[address]rwfzzvr[address] [place] [address]Dr. Farhat Leal IG % 0.6 % Critically high 0.0-0.5 [facility] Comment on above: Performed By: #### C BC ####[facility] Pxeowamgpx[address] [place] [id number]. Farhat Leal LYMPH # 1.5 103/ul Normal 1.2-3.8 [facility] Comment on above: Performed By: #### C BC ####[facility] Nrsmwxhczs[address] [place] [id number]. Farhat Leal Lymphocytes/100 WBC (Bld) 21.5 % Normal 20.5-60.0 [facility] Comment on above: Performed By: #### C BC ####[facility] [address]um[address]rlpp[address] [place] [id number]. Farhat Elvis MANUAL DIFF REQ NO Normal [facility] Comment on above: Performed By: #### C BC ####[facility] Lvmzxtthny84[address] [place] [id number]. Farhat Elvis MCH (RBC) [Entitic mass] 30.8 pg Normal 25.9-34.0 [facility] Comment on above: Performed By: #### C BC ####[facility] Ricgtmrqba6439 [place] [address]Dr. Farhat Leal MCHC (RBC) [Mass/Vol] 33.4 g/dL Normal 29.9-35.2 [facility] Comment on above: Performed By: #### C BC ####[facility] Fgbhowumml5[address] [place] [id number]. Farhat Elvis MCV (RBC) [Entitic vol] 92.1 fL Normal 80.0-94.0 [facility] Comment on above: Performed By: #### C BC ####[facility] Qcrsezjsqo04[address] [place] [id number]. Farhat Elvis MONO # 0.6 103/ul Normal 0.3-0.8 [facility] Comment on above: Performed By: #### C BC ####[facility] Srpcexyjma3640 [place] [id number]. Farhat Elvis Monocytes/100 WBC (Bld) 8.7 % Normal 1.7-12.0 [facility] Comment on above: Performed By: #### C BC ####[facility] Zehqtpnbtw67[address] [place] [id number]. Farhat Leal NEUT # 4.4 103/ul Normal 1.4-6.5 [facility] Comment on above: Performed By: #### C BC ####[facility] Wddfhkptbk7237 [place] [id number]. Farhat Leal Neutrophils/100 WBC (Bld) 64.5 % Normal 43.0-75.0 [facility] Comment on above: Performed By: #### C BC ####[facility] O[address]izbnax[address] [place] [id number]. Farhat Leal Platelet mean volume (Bld) [Entitic vol] 10.1 fL Normal 9.5-13.5 [facility] Comment on above: Performed By: #### C BC ####[facility] R[address]zqsmedp[address] [place] [id number]. Farhat Elvis PLT 177 103/ul Normal 150-450 [facility] Comment on above: Performed By: #### C BC ####[facility] Kdz[address]dgjklj40[address] [place] [id number]. Farhat Elvis RBC 3.90 106/ul Critically low 4.70-6.10 [facility] Comment on above: Performed By: #### C BC ####[facility] Myhhzafuvg[address] [place] [id number]. Farhat Leal WBC 6.8 103/ul Normal 4.0-11.0 [facility] Comment on above: Performed By: #### C BC ####[facility] Bazggswfun55[address] [place] [id number]. Farhat Leal PROF 14(COMP METB)on 023 Albumin [Mass/Vol] 2.8 g/dL Critically low 3.4-5.0 [facility] Comment on above: Performed By: #### C MP ####[facility] Mykbtvhgxj49[address] [place] [id number]. Farhat Elvis Albumin/Globulin [Mass ratio] 0.8 {ratio} Normal [facility] Comment on above: Performed By: #### C MP ####[facility] Ww[address]awvkzjd[address] [place] [address]Dr. Farhat Leal ALP [Catalytic activity/Vol] 68 U/L Normal 46-116 [facility] Comment on above: Performed By: #### C MP ####[facility] Luujtyzwkv[address] [place] [address]Dr. Farhat Leal ALT [Catalytic activity/Vol] 20 U/L Normal 16-63 [facility] Comment on above: Performed By: #### C MP ####[facility] Myrykmhoex[address] [place], [place] [address]Dr. Farhat Leal Anion gap [Moles/Vol] 11.1 mmol/L Normal Th e [facility] Comment on above: Performed By: #### C MP ####[facility] Ukkfmwbedu[address] [place], [place] [address]Dr. Farhat Leal AST [Catalytic activity/Vol] 22 U/L Normal 15-37 [facility] Comment on above: Performed By: #### C MP ####[facility] Jlfwnqewly[address] [place], [place] [address]Dr. Farhat Leal Bilirubin [Mass/Vol] 0.4 mg/dL Normal 0.2-1.0 [facility] Comment on above: Performed By: #### C MP ####[facility] [address]jxvrhya[address] [place], [place] [address]Dr. Farhat Leal Calcium [Mass/Vol] 8.5 mg/dL Normal 8.5-10.1 [facility] Comment on above: Performed By: #### C MP ####[facility] [address]cri[address] [place] [address]Dr. Farhat Leal Chloride [Moles/Vol] 106 mmol/L Normal 98-107 [facility] Comment on above: Performed By: #### C MP ####[facility] Ygvtnxjicx110[address] [place], [place] [address]Dr. Farhat Leal CO2 [Moles/Vol] 29.1 mmol/L Normal 21.0-32.0 [facility] Comment on above: Performed By: #### C MP ####[facility] Knxebkappp[address] [place], [place] [address]Dr. Farhat Leal Creatinine [Mass/Vol] 1.70 mg/dL Critically high 0.70-1.30 [facility] Comment on above: Performed By: #### C MP ####[facility] Bdbmxiykiz[address] [place] [address]Dr. Farhat Leal EGFR-AF PORTUGUESE 48 mL/min/1.73m2 Critically low >=60 [facility] Comment on above: Performed By: #### C MP ####[facility] Qrdxaluwmb[address] [place] [address]Dr. Farhat Leal EGFR-NON AF PORTUGUESE 39 mL/min/1.73m2 Critically low >=60 [facility] Comment on above: Performed By: #### C MP ####[facility] Ylmbyrbtgp08[address] [place], [place] [address]Dr. Farhat Leal Globulin (S) [Mass/Vol] 3.6 g/dL Normal [facility] Comment on above: Performed By: #### C MP ####[facility] Ugreeelvpz858[address] [place], [place] [address]Dr. Farhat Leal Glucose [Mass/Vol] 312 mg/dL Critically high 74-106 [facility] Comment on above: Performed By: #### C MP ####[facility] Xszqalmwst522[address] [place], [place] [address]Dr. Farhat Leal Potassium [Moles/Vol] 4.2 mmol/L Normal 3.5-5.1 [facility] Comment on above: Performed By: #### C MP ####[facility] Zigcoktwaf3927[address] [place], [place] [address]Dr. Farhat Elvis Protein [Mass/Vol] 6.4 g/dL Normal 6.4-8.2 [facility] Comment on above: Performed By: #### C MP ####[facility] Lxxhlkycjt3338[address] [place], [place] [address]Dr. Farhat Leal Sodium [Moles/Vol] 142 mmol/L Normal 136-145 [facility] Comment on above: Performed By: #### C MP ####[facility] Bhjszjpurw184[address] [place], [place] [address]Dr. Farhat Leal Urea nitrogen [Mass/Vol] 49.0 mg/dL Critically high 7.0-18.0 [facility] Comment on above: Performed By: #### C MP ####[facility] Vswpcrrlfb167[address] [place], [place] [address]Dr. Farhat Leal Urea nitrogen/Creatinine [Mass ratio] 28.8 mg/mg Normal [facility] Comment on above: Performed By: #### C MP ####[facility] Yjnrzmqdvk[address] [place], [place] [address]Dr. Farhat Leal PROTIMEon 07-03-2022 INR Coag (PPP) [Relative time] 2.23 {INR} Normal [facility] Comment on above: Performed By: #### P T ####[facility] Hxqkexzmvq254[address] [place], [place] [address]Dr. Farhat Leal INR GUIDELINES SEE BELOW Normal [facility] Comment on above: Result Comment: MALINA RED INR: 2.0 - 3.0 CONDITIONS NOT LISTED BELOW 2.5 - 3.5 FOR PROSTHETIC HEART VALVE REPLACEMENT 2.5 - 3.5 RECURRENT THROMBOSIS Performed By: #### P T ####[facility] Nnssgiibvw[address] [place], [place] [address]Dr. Farhat Leal PT Coag (PPP) [Time] 22.6 s Critically high 9.0-11.6 [facility] Comment on above: Performed By: #### P T ####[facility] Kfnflnnfqm039[address] [place], [place] [address]Dr. Farhat Leal FK506 (TACROLIMUS) WHOLE BLO ODon 06-29-2022 Tacrolimus (FK506), Blood 12.2 ng/mL Normal 2.0-20.0 [facility] Comment on above: Result Comment: Trou gh (immediately following transplant) 15.0 . Trough (steady state, 2 weeks or more after transplant): 3.0 - 8.0 . Performed by LC-MS/MS technology. Performed By: #### F K506T ####[facility] Yafjymaait147[address] [place], [place] [address]DrSkylar Leal CBC AUTO DIFFon 05-12-2023 BASO # 0.0 103/ul Normal 0.0-0.1 [facility] Comment on above: Performed By: #### C BC ####[facility] Lrqtomyfep[address] [place] [address]Dr. Farhat Leal Basophils/100 WBC (Bld) 0.5 % Normal 0.2-2.0 [facility] Comment on above: Performed By: #### C BC ####[facility] Fbnvtrswpp9425[address] [place], [place] [address]DrSkylar Leal EO # 0.3 103/ul Normal 0.0-0.7 [facility] Comment on above: Performed By: #### C BC ####[facility] Jmoarjrwso438[address] [place], [place] [address]Dr. Farhat Leal Eosinophils/100 WBC (Bld) 4.3 % Normal 0.9-7.0 [facility] Comment on above: Performed By: #### C BC ####[facility] Lwzuxpjgyd190362 [address] [place], [place] [address]Dr. Farhat Leal Erythrocyte distribution width (RBC) [Ratio] 14.1 % Normal 11.0-15.0 [facility] Comment on above: Performed By: #### C BC ####[facility] Lzvqpnvknl11[address] [place], [place] [address]Dr. Farhat Leal Hematocrit (Bld) [Volume fraction] 35.4 % Critically low 42.0-54.0 [facility] Comment on above: Performed By: #### C BC ####[facility] Skeeboawie[address] [place], [place] [address]Dr. Farhat Leal Hemoglobin (Bld) [Mass/Vol] 11.8 g/dL Critically low 14.0-18.0 [facility] Comment on above: Performed By: #### C BC ####[facility] Myxfljixvj4967[address] [place], [place] [address]DrSkylar Leal IG # 0.02 10e3/ul Normal 0.00-0.03 [facility] Comment on above: Performed By: #### C BC ####[facility] Haxhlctfum474[address] [place], [place] [address]Dr. Farhat Leal IG % 0.3 % Normal 0.0-0.5 [facility] Comment on above: Performed By: #### C BC ####[facility] Tktvjbgcll[address] [place] [address]DrSkylar Leal LYMPH # 2.4 103/ul Normal 1.2-3.8 [facility] Comment on above: Performed By: #### C BC ####[facility] Mudvwmzxuo19[address] [place] [address]Dr. Farhat Leal Lymphocytes/100 WBC (Bld) 40.4 % Normal 20.5-60.0 [facility] Comment on above: Performed By: #### C BC ####[facility] Sputhmkodf0664[address] [place], [place] [address]DrSkylar Leal MANUAL DIFF REQ NO Normal [facility] Comment on above: Performed By: #### C BC ####[facility] Mjuzjqbedv6[address] [place] [address]DrSkylar Leal MCH (RBC) [Entitic mass] 31.0 pg Normal 25.9-34.0 [facility] Comment on above: Performed By: #### C BC ####[facility] Lvkmcnfrtu760[address] [place], [place] [address]DrSkylar Leal MCHC (RBC) [Mass/Vol] 33.3 g/dL Normal 29.9-35.2 [facility] Comment on above: Performed By: #### C BC ####[facility] Uhlbuezgki9[address] [place], [place] [address]DrSkylar Leal MCV (RBC) [Entitic vol] 92.9 fL Normal 80.0-94.0 [facility] Comment on above: Performed By: #### C BC ####[facility] Rhowwprfpd279[address] [place], [place] [address]DrSkylar Leal MONO # 0.7 103/ul Normal 0.3-0.8 [facility] Comment on above: Performed By: #### C BC ####[facility] Rqfbqpjefa5729[address] [place], [place] [address]DrSkylar Leal Monocytes/100 WBC (Bld) 11.1 % Normal 1.7-12.0 [facility] Comment on above: Performed By: #### C BC ####[facility] Ucatsimrkd[address] [place] [address]Dr. Farhat Leal NEUT # 2.6 103/ul Normal 1.4-6.5 [facility] Comment on above: Performed By: #### C BC ####[facility] Jiebjvkfvw8[address] [place] [address]DrSkylar Leal Neutrophils/100 WBC (Bld) 43.4 % Normal 43.0-75.0 [facility] Comment on above: Performed By: #### C BC ####[facility] Zlrzwpkslk3923 [place] [address]DrSkylar Leal Platelet mean volume (Bld) [Entitic vol] 10.4 fL Normal 9.5-13.5 [facility] Comment on above: Performed By: #### C BC ####[facility] Dtfmmuqxqh524[address] [place], [place] [address]DrSkylar Leal PLT 211 103/ul Normal 150-450 [facility] Comment on above: Performed By: #### C BC ####[facility] Bwvjgbaxkp[address] [place], [place] [address]DrSkylar Leal RBC 3.81 106/ul Critically low 4.70-6.10 [facility] Comment on above: Performed By: #### C BC ####[facility] Mnhbkiomtt0244 [place] [address]DrSkylar Leal WBC 6.0 103/ul Normal 4.0-11.0 [facility] Comment on above: Performed By: #### C BC ####[facility] Ewhtoilwhg94[address] [place] [address]DrSkylar Leal PROF 14(COMP METB)on 023 Albumin [Mass/Vol] 2.6 g/dL Critically low 3.4-5.0 [facility] Comment on above: Performed By: #### C MP ####[facility] Sbfkdxzijw666562 [address] [place], [place] [address]DrSkylar Dougherty Elvis Albumin/Globulin [Mass ratio] 0.8 {ratio} Normal [facility] Comment on above: Performed By: #### C MP ####[facility] Neantlzmuu[address] [place] [address]Dr. Farhat Elvis ALP [Catalytic activity/Vol] 64 U/L Normal 46-116 [facility] Comment on above: Performed By: #### C MP ####[facility] Wpdqphmihy7243 [place] [address]Dr. Farhat Elvis ALT [Catalytic activity/Vol] 18 U/L Normal 16-63 [facility] Comment on above: Performed By: #### C MP ####[facility] Myzlduckpy117[address] [place], [place] [address]Dr. Farhat Leal Anion gap [Moles/Vol] 10.2 mmol/L Normal [facility] Comment on above: Performed By: #### C MP ####[facility] Kesaerircp9969[address] [place], [place] [address]Dr. Farhat Elvis AST [Catalytic activity/Vol] 16 U/L Normal 15-37 [facility] Comment on above: Performed By: #### C MP ####[facility] Dpfbyiiwng4967[address] [place], [place] [address]Dr. Farhat Leal Bilirubin [Mass/Vol] 0.6 mg/dL Normal 0.2-1.0 [facility] Comment on above: Performed By: #### C MP ####[facility] Rpajawsowt6[address] [place], [place] [address]Dr. Farhat Leal Calcium [Mass/Vol] 8.5 mg/dL Normal 8.5-10.1 [facility] Comment on above: Performed By: #### C MP ####[facility] Arbddzqtpj1816[address] [place], [place] [address]Dr. Farhat Leal Chloride [Moles/Vol] 106 mmol/L Normal 98-107 [facility] Comment on above: Performed By: #### C MP ####[facility] Knunlklchq[address] [place] [address]Dr. Farhat Leal CO2 [Moles/Vol] 29.8 mmol/L Normal 21.0-32.0 [facility] Comment on above: Performed By: #### C MP ####[facility] Swemvsgsgz39[address] [place] [address]Dr. Farhat Leal Creatinine [Mass/Vol] 1.60 mg/dL Critically high 0.70-1.30 [facility] Comment on above: Performed By: #### C MP ####[facility] Kgxsxhobtw65[address] [place] [address]Dr. Farhat Leal EGFR-AF PORTUGUESE 51 mL/min/1.73m2 Critically low >=60 [facility] Comment on above: Performed By: #### C MP ####[facility] Bwmuxpdsnz3267[address] [place], [place] [address]Dr. Farhat Leal EGFR-NON AF PORTUGUESE 42 mL/min/1.73m2 Critically low >=60 [facility] Comment on above: Performed By: #### C MP ####[facility] Exwbzyhzsk6724[address] [place], [place] [address]Dr. Farhat Leal Globulin (S) [Mass/Vol] 3.4 g/dL Normal [facility] Comment on above: Performed By: #### C MP ####[facility] Lqkmxrzhud488[address] [place], [place] [address]Dr. Farhat Leal Glucose [Mass/Vol] 178 mg/dL Critically high 74-106 T [facility] Comment on above: Performed By: #### C MP ####[facility] Ebnyylgzjt064[address] [place], [place] [address]Dr. Farhat Leal Potassium [Moles/Vol] 4.0 mmol/L Normal 3.5-5.1 [facility] Comment on above: Performed By: #### C MP ####[facility] Mfjlbcgjsu688[address] [place], [place] [address]Dr. Farhat Leal Protein [Mass/Vol] 6.0 g/dL Critically low 6.4-8.2 Th e [facility] Comment on above: Performed By: #### C MP ####[facility] Mvovnkcqaw497[address] [place], [place] [address]Dr. Farhat Leal Sodium [Moles/Vol] 142 mmol/L Normal 136-145 [facility] Comment on above: Performed By: #### C MP ####[facility] Ozkytwymrv69[address] [place] [address]Dr. Farhat Leal Urea nitrogen [Mass/Vol] 49.0 mg/dL Critically high 7.0-18.0 [facility] Comment on above: Performed By: #### C MP ####[facility] Bbvuxzdgsw4884 [place] [address]Dr. Farhat Leal Urea nitrogen/Creatinine [Mass ratio] 30.6 mg/mg Normal [facility] Comment on above: Performed By: #### C MP ####[facility] Foxqgpjnvi0713[address] [place], [place] [address]Dr. Farhat Leal PROTIMEon 06-26-2022 INR Coag (PPP) [Relative time] 1.77 {INR} Normal [facility] Comment on above: Performed By: #### P T ####[facility] Ztuqrzwbiy8732[address] [place], [place] [address]Dr. Farhat Leal INR GUIDELINES SEE BELOW Normal [facility] Comment on above: Result Comment: MALINA RED INR: 2.0 - 3.0 CONDITIONS NOT LISTED BELOW 2.5 - 3.5 FOR PROSTHETIC HEART VALVE REPLACEMENT 2.5 - 3.5 RECURRENT THROMBOSIS Performed By: #### P T ####[facility] Cdxecbijun107[address] [place], [place] [address]Dr. Farhat Leal PT Coag (PPP) [Time] 18.2 s Critically high 9.0-11.6 [facility] Comment on above: Performed By: #### P T ####[facility] Ptviqctmww901362 [address] [place], [place] [address]Dr. Farhat Leal FK506 (TACROLIMUS) WHOLE BLO ODon 06-22-2022 Tacrolimus (FK506), Blood 24.5 ng/mL Invalid Interpretation Code 2.0-20.0 [facility] Comment on above: Result Comment: Trou gh (immediately following transplant) 15.0 . Trough (steady state, 2 weeks or more after transplant): 3.0 - 8.0 . Performed by LC-MS/MS technology.Patient drug level exceeds published reference range. Evaluateclinically for signs of potential toxicity. Performed By: #### F K506T ####[facility] Iopnkixhfe[address] [place] [address]Dr. Farhat Leal CBC AUTO DIFFon 06-19-2022 BASO # 0.1 103/ul Normal 0.0-0.1 [facility] Comment on above: Performed By: #### C BC ####[facility] Aypcbeuciz[address] [place] [address]Dr. Farhat Elvis Basophils/100 WBC (Bld) 0.7 % Normal 0.2-2.0 [facility] Comment on above: Performed By: #### C BC ####[facility] Rpvoocufps07[address] [place], [place] [address]Dr. Farhat Leal EO # 0.4 103/ul Normal 0.0-0.7 [facility] Comment on above: Performed By: #### C BC ####[facility] Fujawjaqgl5779[address] [place], [place] [address]Dr. Farhat Elvis Eosinophils/100 WBC (Bld) 5.7 % Normal 0.9-7.0 [facility] Comment on above: Performed By: #### C BC ####[facility] Frfrmxwlkz299[address] [place], [place] [address]Dr. Farhat Leal Erythrocyte distribution width (RBC) [Ratio] 14.5 % Normal 11.0-15.0 [facility] Comment on above: Performed By: #### C BC ####[facility] Njykfzyaep3822[address] [place], [place] [address]Dr. Farhat Leal Hematocrit (Bld) [Volume fraction] 34.1 % Critically low 42.0-54.0 [facility] Comment on above: Performed By: #### C BC ####[facility] Jpwppfvtlk854[address] [place], [place] [address]Dr. Farhat Leal Hemoglobin (Bld) [Mass/Vol] 11.3 g/dL Critically low 14.0-18.0 [facility] Comment on above: Performed By: #### C BC ####[facility] Vjengcllvj8[address] [place], [place] [address]DrSkylar Leal IG # 0.02 10e3/ul Normal 0.00-0.03 [facility] Comment on above: Performed By: #### C BC ####[facility] Zdeghfqviv6412 [place] [address]DrSkylar Leal IG % 0.3 % Normal 0.0-0.5 [facility] Comment on above: Performed By: #### C BC ####[facility] Dajlyyalmg0991 [place] [address]DrSkylar Leal LYMPH # 3.1 103/ul Normal 1.2-3.8 [facility] Comment on above: Performed By: #### C BC ####[facility] Vqccssbuqn45216[address] [place], [place] [address]DrSkylar Leal Lymphocytes/100 WBC (Bld) 40.6 % Normal 20.5-60.0 [facility] Comment on above: Performed By: #### C BC ####[facility] Tfcauhllkl[address] [place], [place] [address]DrSkylar Leal MANUAL DIFF REQ NO Normal [facility] Comment on above: Performed By: #### C BC ####[facility] Xsuuiixpsq2737[address] [place], [place] [address]DrSkylar Leal MCH (RBC) [Entitic mass] 30.6 pg Normal 25.9-34.0 [facility] Comment on above: Performed By: #### C BC ####[facility] Snneemleru232[address] [place], [place] [address]DrSkylar Leal MCHC (RBC) [Mass/Vol] 33.1 g/dL Normal 29.9-35.2 [facility] Comment on above: Performed By: #### C BC ####[facility] Acwmoenbrd9244 [place] [address]DrSkylar Leal MCV (RBC) [Entitic vol] 92.4 fL Normal 80.0-94.0 [facility] Comment on above: Performed By: #### C BC ####[facility] Xnpbscrpzi305[address] [place], [place] [address]DrSkylar Leal MONO # 0.8 103/ul Normal 0.3-0.8 [facility] Comment on above: Performed By: #### C BC ####[facility] Osbosxdxbf50[address] [place] [id number]. Farhat Leal Monocytes/100 WBC (Bld) 10.6 % Normal 1.7-12.0 [facility] Comment on above: Performed By: #### C BC ####[facility] Kmwaterkeo[address] [place] [address]Dr. Farhat Leal NEUT # 3.2 103/ul Normal 1.4-6.5 [facility] Comment on above: Performed By: #### C BC ####[facility] Pnjejhtahe0086 [place] [address]Dr. Farhat Leal Neutrophils/100 WBC (Bld) 42.1 % Critically low 43.0-75.0 [facility] Comment on above: Performed By: #### C BC ####[facility] Ujgwvaqdiq4936[address] [place], [place] [address]Dr. Farhat Leal Platelet mean volume (Bld) [Entitic vol] 10.6 fL Normal 9.5-13.5 [facility] Comment on above: Performed By: #### C BC ####[facility] Kyivjqkomx[address] [place], [place] [address]Dr. Farhat Leal PLT 187 103/ul Normal 150-450 [facility] Comment on above: Performed By: #### C BC ####[facility] Oyjrqreqaa85[address] [place], [place] [address]Dr. Farhat Leal RBC 3.69 106/ul Critically low 4.70-6.10 The [facility] Comment on above: Performed By: #### C BC ####[facility] Quvkghkfgj0969 [place] [id number]. Farhat Leal WBC 7.7 103/ul Normal 4.0-11.0 [facility] Comment on above: Performed By: #### C BC ####[facility] Nlldxkkyph60[address] [place], [place] [address]DrSkylra Farhat Elvis PROF 14(COMP METB)on 023 Albumin [Mass/Vol] 2.5 g/dL Critically low 3.4-5.0 [facility] Comment on above: Performed By: #### C MP ####[facility] Idfmhzppzv7[address] [place] [address]Dr. Farhat Leal Albumin/Globulin [Mass ratio] 0.8 {ratio} Normal [facility] Comment on above: Performed By: #### C MP ####[facility] Gosrantlma9264 [place] [address]Dr. Farhat Leal ALP [Catalytic activity/Vol] 60 U/L Normal 46-116 [facility] Comment on above: Performed By: #### C MP ####[facility] Wlflppyjva00[address] [place], [place] [address]Dr. Farhat Leal ALT [Catalytic activity/Vol] 16 U/L Normal 16-63 [facility] Comment on above: Performed By: #### C MP ####[facility] Ifikdhxkiv885[address] [place], [place] [address]Dr. Farhat Leal Anion gap [Moles/Vol] 9.1 mmol/L Normal [facility] Comment on above: Performed By: #### C MP ####[facility] Rqkejfgzmv7984[address] [place], [place] [address]Dr. Farhat Leal AST [Catalytic activity/Vol] 31 U/L Normal 15-37 [facility] Comment on above: Performed By: #### C MP ####[facility] Wkmtpblezq4869[address] [place], [place] [address]Dr. Farhat Leal Bilirubin [Mass/Vol] 0.3 mg/dL Normal 0.2-1.0 [facility] Comment on above: Performed By: #### C MP ####[facility] Axfxijjutv[address] [place], [place] [address]Dr. Farhat Leal Calcium [Mass/Vol] 8.2 mg/dL Critically low 8.5-10.1 Th [facility] Comment on above: Performed By: #### C MP ####[facility] Slayuotezk09[address] [place], [place] [address]Dr. Farhat Leal Chloride [Moles/Vol] 106 mmol/L Normal 98-107 [facility] Comment on above: Performed By: #### C MP ####[facility] Yhisfsulsj8[address] [place] [address]Dr. Farhat Leal CO2 [Moles/Vol] 27.0 mmol/L Normal 21.0-32.0 [facility] Comment on above: Performed By: #### C MP ####[facility] Ojmlqcgiqe807[address] [place], [place] [address]Dr. Farhat Leal Creatinine [Mass/Vol] 1.51 mg/dL Critically high 0.70-1.30 [facility] Comment on above: Performed By: #### C MP ####[facility] Gdgxeussiu869[address] [place], [place] [address]Dr. Farhat Leal EGFR-AF PORTUGUESE 55 mL/min/1.73m2 Critically low >=60 [facility] Comment on above: Performed By: #### C MP ####[facility] Lcnvoenikd367[address] [place], [place] [address]Dr. Farhat Leal EGFR-NON AF PORTUGUESE 45 mL/min/1.73m2 Critically low >=60 [facility] Comment on above: Performed By: #### C MP ####[facility] Ufmrbivook12[address] [place], [place] [address]Dr. Farhat Leal Globulin (S) [Mass/Vol] 3.2 g/dL Normal [facility] Comment on above: Performed By: #### C MP ####[facility] Wsyelhzkgc759[address] [place], [place] [address]Dr. Farhat Leal Glucose [Mass/Vol] 165 mg/dL Critically high 74-106 [facility] Comment on above: Performed By: #### C MP ####[facility] Dqdiwjyqjg079[address] [place], [place] [address]Dr. Farhat Leal Potassium [Moles/Vol] 4.1 mmol/L Normal 3.5-5.1 [facility] Comment on above: Performed By: #### C MP ####[facility] Ginvjqdbeo91976[address] [place], [place] [address]Dr. Farhat Leal Protein [Mass/Vol] 5.7 g/dL Critically low 6.4-8.2 Th e [facility] Comment on above: Performed By: #### C MP ####[facility] Gpvusgnqoz65[address] [place] [address]Dr. Farhat Leal Sodium [Moles/Vol] 138 mmol/L Normal 136-145 [facility] Comment on above: Performed By: #### C MP ####[facility] Ueyqjtsteb7104 [place] [address]Dr. Farhat Leal Urea nitrogen [Mass/Vol] 51.0 mg/dL Critically high 7.0-18.0 [facility] Comment on above: Performed By: #### C MP ####[facility] Wfxqpcvpei[address] [place], [place] [address]Dr. Farhat Leal Urea nitrogen/Creatinine [Mass ratio] 33.8 mg/mg Normal [facility] Comment on above: Performed By: #### C MP ####[facility] Xxbntrxiqy17[address] [place], [place] [address]Dr. Farhat Leal FK506 (TACROLIMUS) WHOLE BLO ODon 06-15-2022 Tacrolimus (FK506), Blood 16.4 ng/mL Normal 2.0-20.0 [facility] Comment on above: Result Comment: Trou gh (immediately following transplant) 15.0 . Trough (steady state, 2 weeks or more after transplant): 3.0 - 8.0 . Performed by LC-MS/MS technology. Performed By: #### F K506T ####[facility] Mtcbqgczuj19[address] [place], [place] [address]Dr. Farhat Leal PROTIMEon 06-15-2022 INR Coag (PPP) [Relative time] 1.64 {INR} Normal [facility] Comment on above: Performed By: #### P T ####[facility] Yszsqhjxfo257[address] [place], [place] [address]Dr. Farhat Leal INR GUIDELINES SEE BELOW Normal [facility] Comment on above: Result Comment: MALINA RED INR: 2.0 - 3.0 CONDITIONS NOT LISTED BELOW 2.5 - 3.5 FOR PROSTHETIC HEART VALVE REPLACEMENT 2.5 - 3.5 RECURRENT THROMBOSIS Performed By: #### P T ####[facility] Upfryweiyn[address] [place] [id number]. Farhat Leal PT Coag (PPP) [Time] 16.9 s Critically high 9.0-11.6 [facility] Comment on above: Performed By: #### P T ####[facility] Ziczpmlsnd[address] [place] [address]Dr. Farhat Leal CBC AUTO DIFFon 06-12-2022 BASO # 0.0 103/ul Normal 0.0-0.1 [facility] Comment on above: Performed By: #### C BC ####[facility] Bpxqllakgg[address] [place], [place] [address]Dr. Farhat Leal Basophils/100 WBC (Bld) 0.4 % Normal 0.2-2.0 [facility] Comment on above: Performed By: #### C BC ####[facility] Jzdqrmchol[address] [place], [place] [address]Dr. Farhat Leal EO # 0.4 103/ul Normal 0.0-0.7 [facility] Comment on above: Performed By: #### C BC ####[facility] Vcmsytafna[address] [place], [place] [address]Dr. Farhat Leal Eosinophils/100 WBC (Bld) 5.4 % Normal 0.9-7.0 [facility] Comment on above: Performed By: #### C BC ####[facility] Ibfpaeqazq047[address] [place], [place] [address]Dr. Farhat Leal Erythrocyte distribution width (RBC) [Ratio] 14.7 % Normal 11.0-15.0 [facility] Comment on above: Performed By: #### C BC ####[facility] Aydfecfhxa58[address] [place], [place] [address]Dr. Farhat Leal Hematocrit (Bld) [Volume fraction] 34.8 % Critically low 42.0-54.0 [facility] Comment on above: Performed By: #### C BC ####[facility] Ocmzzqqlfb199[address] [place], [place] [address]Dr. Farhat Leal Hemoglobin (Bld) [Mass/Vol] 11.7 g/dL Critically low 14.0-18.0 [facility] Comment on above: Performed By: #### C BC ####[facility] Oksbuzadhg[address] [place] [address]Dr. Madelynlorri Elvis IG # 0.02 10e3/ul Normal 0.00-0.03 [facility] Comment on above: Performed By: #### C BC ####[facility] Bzpzzrxdye70[address] [place] [address]Dr. Farhat Leal IG % 0.3 % Normal 0.0-0.5 [facility] Comment on above: Performed By: #### C BC ####[facility] Gfivfkguoy[address] [place], [place] [address]Dr. Farhat Leal LYMPH # 2.5 103/ul Normal 1.2-3.8 [facility] Comment on above: Performed By: #### C BC ####[facility] Zbdrfqmyek[address] [place], [place] [address]Dr. Farhat Leal Lymphocytes/100 WBC (Bld) 36.8 % Normal 20.5-60.0 [facility] Comment on above: Performed By: #### C BC ####[facility] Kphubxeatg[address] [place] [address]Dr. Farhat Leal MANUAL DIFF REQ NO Normal [facility] Comment on above: Performed By: #### C BC ####[facility] Psroznqcqu039[address] [place] [address]Dr. Farhat Leal MCH (RBC) [Entitic mass] 30.9 pg Normal 25.9-34.0 [facility] Comment on above: Performed By: #### C BC ####[facility] Ogdokztljk[address] [place], [place] [address]Dr. Farhat Leal MCHC (RBC) [Mass/Vol] 33.6 g/dL Normal 29.9-35.2 [facility] Comment on above: Performed By: #### C BC ####[facility] Uejljxaymi14[address] [place] [address]Dr. Farhat Leal MCV (RBC) [Entitic vol] 91.8 fL Normal 80.0-94.0 [facility] Comment on above: Performed By: #### C BC ####[facility] Lkifdhwttp04[address] [place] [id number]. Farhat Leal MONO # 0.8 103/ul Normal 0.3-0.8 [facility] Comment on above: Performed By: #### C BC ####[facility] Fwyoitsrba5[address] [place] [id number]. Farhat Leal Monocytes/100 WBC (Bld) 11.9 % Normal 1.7-12.0 [facility] Comment on above: Performed By: #### C BC ####[facility] Oxmsbzzrnp46[address] [place] [address]Dr. Farhat Leal NEUT # 3.1 103/ul Normal 1.4-6.5 [facility] Comment on above: Performed By: #### C BC ####[facility] Ihorpubbkq7731 [place] [address]Dr. Farhat Leal Neutrophils/100 WBC (Bld) 45.2 % Normal 43.0-75.0 [facility] Comment on above: Performed By: #### C BC ####[facility] Mcqpkwoxan039[address] [place] [address]Dr. Farhat Leal Platelet mean volume (Bld) [Entitic vol] 10.5 fL Normal 9.5-13.5 [facility] Comment on above: Performed By: #### C BC ####[facility] Nkrjnbdrhi09[address] [place] [id number]. Farhat Leal PLT 175 103/ul Normal 150-450 [facility] Comment on above: Performed By: #### C BC ####[facility] Gferqojhqr6139 [place] [id number]. Farhat Leal RBC 3.79 106/ul Critically low 4.70-6.10 [facility] Comment on above: Performed By: #### C BC ####[facility] Ygwybkqvmk7405 [place] [id number]. Farhat Leal WBC 6.8 103/ul Normal 4.0-11.0 [facility] Comment on above: Performed By: #### C BC ####[facility] Kastsmwhhj[address] [place] [address]Dr. Madelynlorri Leal MAGNESIUMon 06-12-2022 Magnesium [Mass/Vol] 1.6 mg/dL Critically low 1.8-2.4 [facility] Comment on above: Performed By: #### C MP, MG, PHOS ####[facility] Ijhhqztrky75[address] [place] [address]Dr. Farhat Leal PHOSPHORUSon 06-12-2022 Phosphate [Mass/Vol] 3.8 mg/dL Normal 2.6-4.7 [facility] Comment on above: Performed By: #### C MP, MG, PHOS ####[facility] Amwbqrjdhn66[address] [place], [place] [address]Dr. Farhat Lela PROF 14(COMP METB)on 023 Albumin [Mass/Vol] 2.6 g/dL Critically low 3.4-5.0 [facility] Comment on above: Performed By: #### C MP, MG, PHOS ####[facility] Vdzgnikytr12[address] [place], [place] [address]Dr. Farhat Leal Albumin/Globulin [Mass ratio] 0.8 {ratio} Normal [facility] Comment on above: Performed By: #### C MP, MG, PHOS ####[facility] Nejyaolzjx33[address] [place] [address]Dr. Farhat Leal ALP [Catalytic activity/Vol] 64 U/L Normal 46-116 [facility] Comment on above: Performed By: #### C MP, MG, PHOS ####[facility] Ootsaagupi27[address] [place] [address]Dr. Farhat Leal ALT [Catalytic activity/Vol] 18 U/L Normal 16-63 [facility] Comment on above: Performed By: #### C MP, MG, PHOS ####[facility] Kzafdpiomv46[address] [place] [address]Dr. Farhat Leal Anion gap [Moles/Vol] 12.9 mmol/L Normal [facility] Comment on above: Performed By: #### C MP, MG, PHOS ####[facility] Yppjqhofif7485 [place] [address]Dr. Farhat Leal AST [Catalytic activity/Vol] 18 U/L Normal 15-37 [facility] Comment on above: Performed By: #### C MP, MG, PHOS ####[facility] Zqlcfdltaw27[address] [place] [address]Dr. Farhat Leal Bilirubin [Mass/Vol] 0.4 mg/dL Normal 0.2-1.0 [facility] Comment on above: Performed By: #### C MP, MG, PHOS ####[facility] Uodstrdmcm9003 [place] [address]Dr. Farhat Leal Calcium [Mass/Vol] 8.7 mg/dL Normal 8.5-10.1 [facility] Comment on above: Performed By: #### C MP, MG, PHOS ####[facility] Ordxxnbdyo764[address] [place], [place] [address]Dr. Farhat Leal Chloride [Moles/Vol] 105 mmol/L Normal 98-107 [facility] Comment on above: Performed By: #### C MP, MG, PHOS ####[facility] Bouwbudvdt2[address] [place], [place] [address]Dr. Farhat Leal CO2 [Moles/Vol] 27.9 mmol/L Normal 21.0-32.0 [facility] Comment on above: Performed By: #### C MP, MG, PHOS ####[facility] Swakopleif[address] [place], [place] [address]Dr. Farhat Leal Creatinine [Mass/Vol] 1.53 mg/dL Critically high 0.70-1.30 [facility] Comment on above: Performed By: #### C MP, MG, PHOS ####[facility] Wxcuqdoser957[address] [place], [place] [address]Dr. Farhat Leal EGFR-AF PORTUGUESE 54 mL/min/1.73m2 Critically low >=60 [facility] Comment on above: Performed By: #### C MP, MG, PHOS ####[facility] Ppiyitfrvg02[address] [place], [place] [address]Dr. Farhat Leal EGFR-NON AF [place]UGUESE 44 mL/min/1.73m2 Critically low >=60 [facility] Comment on above: Performed By: #### C MP, MG, PHOS ####[facility] Skqmvycttz43[address] [place] [address]Dr. Farhat Leal Globulin (S) [Mass/Vol] 3.4 g/dL Normal [facility] Comment on above: Performed By: #### C MP, MG, PHOS ####[facility] Pxcqnzisgt0517 [place] [address]Dr. Farhat Leal Glucose [Mass/Vol] 179 mg/dL Critically high 74-106 [facility] Comment on above: Performed By: #### C MP, MG, PHOS ####[facility] Adrizzqcsp6470 [place] [address]Dr. Farhat Leal Potassium [Moles/Vol] 3.8 mmol/L Normal 3.5-5.1 [facility] Comment on above: Performed By: #### C MP, MG, PHOS ####[facility] Tkfdaobdeh6834 [place] [address]Dr. Farhat Leal Protein [Mass/Vol] 6.0 g/dL Critically low 6.4-8.2 [facility] Comment on above: Performed By: #### C MP, MG, PHOS ####[facility] Nztarjuxmq0375 [place] [address]Dr. Farhat Leal Sodium [Moles/Vol] 142 mmol/L Normal 136-145 [facility] Comment on above: Performed By: #### C MP, MG, PHOS ####[facility] Xjrrhueoxa9423 [place] [address]Dr. Farhat Leal Urea nitrogen [Mass/Vol] 56.0 mg/dL Critically high 7.0-18.0 [facility] Comment on above: Performed By: #### C MP, MG, PHOS ####[facility] Abewiclufa8[address] [place] [address]Dr. Farhat Leal Urea nitrogen/Creatinine [Mass ratio] 36.6 mg/mg Normal [facility] Comment on above: Performed By: #### C MP, MG, PHOS ####[facility] Neevijobej[address] [place] [address]Dr. Farhat Leal FK506 (TACROLIMUS) WHOLE BLO ODon 06-08-2022 Tacrolimus (FK506), Blood 13.2 ng/mL Normal 2.0-20.0 [facility] Comment on above: Result Comment: Trou gh (immediately following transplant) 15.0 . Trough (steady state, 2 weeks or more after transplant): 3.0 - 8.0 . Performed by LC-MS/MS technology. Performed By: #### F K506T ####[facility] Hbagirngto099[address] [place], [place] [address]Dr. Farhat Leal CBC AUTO DIFFon 06-05-2022 BASO # 0.1 103/ul Normal 0.0-0.1 [facility] Comment on above: Performed By: #### C BC ####[facility] Qjknyherex488[address] [place], [place] [address]Dr. Farhat Leal Basophils/100 WBC (Bld) 0.8 % Normal 0.2-2.0 [facility] Comment on above: Performed By: #### C BC ####[facility] Jzoeevwmql39[address] [place], [place] [address]Dr. Farhat Leal EO # 0.3 103/ul Normal 0.0-0.7 [facility] Comment on above: Performed By: #### C BC ####[facility] Zsycczxeqg399[address] [place], [place] [address]Dr. Farhat Leal Eosinophils/100 WBC (Bld) 4.7 % Normal 0.9-7.0 [facility] Comment on above: Performed By: #### C BC ####[facility] Rafupjbfeo367[address] [place], [place] [address]Dr. Farhat Leal Erythrocyte distribution width (RBC) [Ratio] 15.1 % Critically high 11.0-15.0 [facility] Comment on above: Performed By: #### C BC ####[facility] Dfgwfamhie204[address] [place], [place] [address]Dr. Farhat Leal Hematocrit (Bld) [Volume fraction] 35.5 % Critically low 42.0-54.0 [facility] Comment on above: Performed By: #### C BC ####[facility] Jhowmsrkvh9240 [place] [address]DrSkylar Joshilorri Elvis Hemoglobin (Bld) [Mass/Vol] 11.7 g/dL Critically low 14.0-18.0 [facility] Comment on above: Performed By: #### C BC ####[facility] Femrbaxfrs14[address] [place], [place] [address]DrSkylar Leal IG # 0.01 10e3/ul Normal 0.00-0.03 [facility] Comment on above: Performed By: #### C BC ####[facility] Tmuqjrukhm459[address] [place], [place] [address]DrSkylar Leal IG % 0.2 % Normal 0.0-0.5 [facility] Comment on above: Performed By: #### C BC ####[facility] Odomjlukoc1330[address] [place], [place] [address]DrSkylar Leal LYMPH # 2.1 103/ul Normal 1.2-3.8 [facility] Comment on above: Performed By: #### C BC ####[facility] Pdeqrruggl3448[address] [place], [place] [address]DrSkylar Leal Lymphocytes/100 WBC (Bld) 34.5 % Normal 20.5-60.0 [facility] Comment on above: Performed By: #### C BC ####[facility] Nthxdhewdl54[address] [place], [place] [address]DrSkylar Leal MANUAL DIFF REQ NO Normal [facility] Comment on above: Performed By: #### C BC ####[facility] Ixjmcexned49[address] [place], [place] [address]DrSkylar Leal MCH (RBC) [Entitic mass] 30.6 pg Normal 25.9-34.0 [facility] Comment on above: Performed By: #### C BC ####[facility] Tdurxbkspx[address] [place], [place] [address]DrSkylar Leal MCHC (RBC) [Mass/Vol] 33.0 g/dL Normal 29.9-35.2 [facility] Comment on above: Performed By: #### C BC ####[facility] Zkpipxxmef9429 [place] [address]DrSkylar Joshilorri Elvis MCV (RBC) [Entitic vol] 92.9 fL Normal 80.0-94.0 [facility] Comment on above: Performed By: #### C BC ####[facility] Hcaxlpvooe5927 [place] [address]DrSkylar Leal MONO # 0.7 103/ul Normal 0.3-0.8 [facility] Comment on above: Performed By: #### C BC ####[facility] Qwjrwrvogx9797 [place] [address]DrSkylar Leal Monocytes/100 WBC (Bld) 11.4 % Normal 1.7-12.0 [facility] Comment on above: Performed By: #### C BC ####[facility] Wsooubhpcb9[address] [place], [place] [address]DrSkylar Leal NEUT # 2.9 103/ul Normal 1.4-6.5 [facility] Comment on above: Performed By: #### C BC ####[facility] Jesfnluoxi219[address] [place], [place] [address]DrSkylar Leal Neutrophils/100 WBC (Bld) 48.4 % Normal 43.0-75.0 [facility] Comment on above: Performed By: #### C BC ####[facility] Kboxsnawrb54[address] [place], [place] [address]DrSkylar Leal Platelet mean volume (Bld) [Entitic vol] 10.7 fL Normal 9.5-13.5 [facility] Comment on above: Performed By: #### C BC ####[facility] Rgcbgbsgje8[address] [place], [place] [address]DrSkylar Leal PLT 185 103/ul Normal 150-450 [facility] Comment on above: Performed By: #### C BC ####[facility] Mcrycpyzxy7825 [place] [id number] Leal RBC 3.82 106/ul Critically low 4.70-6.10 [facility] Comment on above: Performed By: #### C BC ####[facility] Ezkhyrwtka38[address] [place] [address]Dr. Farhat Leal WBC 6.0 103/ul Normal 4.0-11.0 [facility] Comment on above: Performed By: #### C BC ####[facility] Zvlcnhrkqz4035 [place] [address]Dr. Farhat Leal MAGNESIUMon 06-05-2022 Magnesium [Mass/Vol] 1.9 mg/dL Normal 1.8-2.4 [facility] Comment on above: Performed By: #### P HOS, MG ####[facility] Yurqvowuuo01[address] [place], [place] [address]Dr. Farhat Leal PHOSPHORUSon 06-05-2022 Phosphate [Mass/Vol] 4.4 mg/dL Normal 2.6-4.7 [facility] Comment on above: Performed By: #### P HOS, MG ####[facility] Vgwwjxgfjr13[address] [place], [place] [address]Dr. Farhat Leal PROTIMEon 06-05-2022 INR Coag (PPP) [Relative time] 2.16 {INR} Normal [facility] Comment on above: Performed By: #### P T ####[facility] Rowygkmdla[address] [place], [place] [address]DrSkylar Leal INR GUIDELINES SEE BELOW Normal [facility] Comment on above: Result Comment: MALINA RED INR: 2.0 - 3.0 CONDITIONS NOT LISTED BELOW 2.5 - 3.5 FOR PROSTHETIC HEART VALVE REPLACEMENT 2.5 - 3.5 RECURRENT THROMBOSIS Performed By: #### P T ####[facility] Foltgsmkhd770[address] [place], [place] [address]Dr. Farhat Leal PT Coag (PPP) [Time] 21.9 s Critically high 9.0-11.6 [facility] Comment on above: Performed By: #### P T ####[facility] Kariyhanac9329[address] [place], [place] [address]Dr. Farhat Leal FK506 (TACROLIMUS) WHOLE BLO ODon 06-01-2022 Tacrolimus (FK506), Blood 26.4 ng/mL Invalid Interpretation Code 2.0-20.0 [facility] Comment on above: Result Comment: Trou gh (immediately following transplant) 15.0 . Trough (steady state, 2 weeks or more after transplant): 3.0 - 8.0 . Performed by LC-MS/MS technology.Patient drug level exceeds published reference range. Evaluateclinically for signs of potential toxicity. Performed By: #### F K506T ####[facility] Acixnphwgk74[address] [place], [place] [address]Dr. Farhat Leal CBC AUTO DIFFon 05-29-2022 BASO # 0.0 103/ul Normal 0.0-0.1 [facility] Comment on above: Performed By: #### C BC ####[facility] Bzdawdtntk17[address] [place], [place] [address]Dr. Farhat Leal Basophils/100 WBC (Bld) 0.6 % Normal 0.2-2.0 [facility] Comment on above: Performed By: #### C BC ####[facility] Yyvtuyqewh04[address] [place], [place] [address]Dr. Farhat Leal EO # 0.3 103/ul Normal 0.0-0.7 [facility] Comment on above: Performed By: #### C BC ####[facility] Qkxmkteeil588[address] [place], [place] [address]Dr. Farhat Leal Eosinophils/100 WBC (Bld) 4.7 % Normal 0.9-7.0 [facility] Comment on above: Performed By: #### C BC ####[facility] Etydaragbq25[address] [place], [place] [address]Dr. Farhat Leal Erythrocyte distribution width (RBC) [Ratio] 15.3 % Critically high 11.0-15.0 [facility] Comment on above: Performed By: #### C BC ####[facility] Dqbsnkguxe107[address] [place], [place] [address]Dr. Farhat Leal Hematocrit (Bld) [Volume fraction] 36.6 % Critically low 42.0-54.0 [facility] Comment on above: Performed By: #### C BC ####[facility] Rzoihlvjve7049 [place] [id number]. Farhat Leal Hemoglobin (Bld) [Mass/Vol] 12.3 g/dL Critically low 14.0-18.0 [facility] Comment on above: Performed By: #### C BC ####[facility] Wipdkwfbem2938 [place] [id number]. Farhat Leal IG # 0.02 10e3/ul Normal 0.00-0.03 [facility] Comment on above: Performed By: #### C BC ####[facility] Xbiyzgifbv4912 [place] [id number]. Farhat Leal IG % 0.3 % Normal 0.0-0.5 [facility] Comment on above: Performed By: #### C BC ####[facility] Rzjofwknjd09[address] [place] [address]Dr. Farhat Leal LYMPH # 2.8 103/ul Normal 1.2-3.8 [facility] Comment on above: Performed By: #### C BC ####[facility] Hrieuukizc59[address] [place] [address]Dr. Farhat Leal Lymphocytes/100 WBC (Bld) 44.4 % Normal 20.5-60.0 [facility] Comment on above: Performed By: #### C BC ####[facility] Xmyztxujba5299 [place] [id number]. Farhat Leal MANUAL DIFF REQ NO Normal [facility] Comment on above: Performed By: #### C BC ####[facility] Vgvufjebft9745 [place] [id number]. Farhat Leal MCH (RBC) [Entitic mass] 30.4 pg Normal 25.9-34.0 [facility] Comment on above: Performed By: #### C BC ####[facility] Mjqijtrnqs2672 [place] [id number]. Farhat Leal MCHC (RBC) [Mass/Vol] 33.6 g/dL Normal 29.9-35.2 [facility] Comment on above: Performed By: #### C BC ####[facility] Ypgjybgnmk0156 [place] [address]Dr. Farhat Leal MCV (RBC) [Entitic vol] 90.4 fL Normal 80.0-94.0 [facility] Comment on above: Performed By: #### C BC ####[facility] Lfaxdjznzq6248 [place] [address]Dr. Farhat Leal MONO # 0.7 103/ul Normal 0.3-0.8 [facility] Comment on above: Performed By: #### C BC ####[facility] Fdpoqvynnr4878 [place] [address]Dr. Farhat Leal Monocytes/100 WBC (Bld) 10.7 % Normal 1.7-12.0 [facility] Comment on above: Performed By: #### C BC ####[facility] Fdnudoslmr06[address] [place], [place] [address]Dr. Farhat Leal NEUT # 2.5 103/ul Normal 1.4-6.5 [facility] Comment on above: Performed By: #### C BC ####[facility] Kzmfvimjbj10[address] [place], [place] [address]Dr. Farhat Leal Neutrophils/100 WBC (Bld) 39.3 % Critically low 43.0-75.0 [facility] Comment on above: Performed By: #### C BC ####[facility] Yyvtbtbfuo98[address] [place], [place] [address]Dr. Farhat Leal Platelet mean volume (Bld) [Entitic vol] 10.5 fL Normal 9.5-13.5 [facility] Comment on above: Performed By: #### C BC ####[facility] Qdquuzsedx599[address] [place], [place] [address]Dr. Farhat Leal PLT 190 103/ul Normal 150-450 [facility] Comment on above: Performed By: #### C BC ####[facility] Qainumumdu436[address] [place], [place] [address]Dr. Farhat Leal RBC 4.05 106/ul Critically low 4.70-6.10 [facility] Comment on above: Performed By: #### C BC ####[facility] Eubdtkhsnl[address] [place], [place] [address]Dr. Farhat Leal WBC 6.4 103/ul Normal 4.0-11.0 [facility] Comment on above: Performed By: #### C BC ####[facility] Wxywiildcn5173 [place] [address]Dr. Farhat Leal PROF 14(COMP METB)on 023 Albumin [Mass/Vol] 2.5 g/dL Critically low 3.4-5.0 [facility] Comment on above: Performed By: #### C MP ####[facility] Pqdyxuvged0839 [place] [address]Dr. Farhat Leal Albumin/Globulin [Mass ratio] 0.8 {ratio} Normal [facility] Comment on above: Performed By: #### C MP ####[facility] Jtvotcgjyf5378 [place] [address]Dr. Farhat Leal ALP [Catalytic activity/Vol] 61 U/L Normal 46-116 [facility] Comment on above: Performed By: #### C MP ####[facility] Rpinzmtrpi5508 [place] [address]Dr. Farhat Leal ALT [Catalytic activity/Vol] 16 U/L Normal 16-63 [facility] Comment on above: Performed By: #### C MP ####[facility] Micllesedz5390 [place] [address]Dr. Farhat Leal Anion gap [Moles/Vol] 12.3 mmol/L Normal [facility] Comment on above: Performed By: #### C MP ####[facility] Pefthoajtz5506 [place] [address]Dr. Farhat Leal AST [Catalytic activity/Vol] 18 U/L Normal 15-37 [facility] Comment on above: Performed By: #### C MP ####[facility] Tnfwcprsla9499 [place] [address]Dr. Farhat Leal Bilirubin [Mass/Vol] 0.5 mg/dL Normal 0.2-1.0 [facility] Comment on above: Performed By: #### C MP ####[facility] Mphjsleltv7051 [place] [address]Dr. Farhat Leal Calcium [Mass/Vol] 8.6 mg/dL Normal 8.5-10.1 [facility] Comment on above: Performed By: #### C MP ####[facility] Xobxiurcbk0252 [place] [address]Dr. Farhat Leal Chloride [Moles/Vol] 105 mmol/L Normal 98-107 [facility] Comment on above: Performed By: #### C MP ####[facility] Jngrepigqu[address] [place], [place] [address]Dr. Madelynlorri Elvis CO2 [Moles/Vol] 28.6 mmol/L Normal 21.0-32.0 [facility] Comment on above: Performed By: #### C MP ####[facility] Vqelegasqk[address] [place], [place] [address]Dr. Farhat Leal Creatinine [Mass/Vol] 1.47 mg/dL Critically high 0.70-1.30 [facility] Comment on above: Performed By: #### C MP ####[facility] Lehpbcrfjq80[address] [place], [place] [address]Dr. Madelynlorri Elvis EGFR-AF [place] 56 mL/min/1.73m2 Critically low >=60 [facility] Comment on above: Performed By: #### C MP ####[facility] Wqinhvigmt[address] [place], [place] [address]Dr. Farhat Leal EGFR-NON AF [place] 46 mL/min/1.73m2 Critically low >=60 [facility] Comment on above: Performed By: #### C MP ####[facility] Tsnrdmwqwh[address] [place] [place] [address]Dr. Farhat Leal Globulin (S) [Mass/Vol] 3.3 g/dL Normal [facility] Comment on above: Performed By: #### C MP ####[facility] Evabnfjsoh69[address] [place], [place] [address]Dr. Farhat Leal Glucose [Mass/Vol] 164 mg/dL Critically high 74-106 T [facility] Comment on above: Performed By: #### C MP ####[facility] Higjqllxpb612[address] [place], [place] [address]Dr. Farhat Leal Potassium [Moles/Vol] 3.9 mmol/L Normal 3.5-5.1 [facility] Comment on above: Performed By: #### C MP ####[facility] Leypbdfwdu059[address] [place], [place] [address]Dr. Farhat Leal Protein [Mass/Vol] 5.8 g/dL Critically low 6.4-8.2 Th e [facility] Comment on above: Performed By: #### C MP ####[facility] Orbswxgogf040[address] [place], [place] [address]Dr. Farhat Leal Sodium [Moles/Vol] 142 mmol/L Normal 136-145 [facility] Comment on above: Performed By: #### C MP ####[facility] Zosyofwual445[address] [place], [place] [address]Dr. Farhat Leal Urea nitrogen [Mass/Vol] 53.0 mg/dL Critically high 7.0-18.0 [facility] Comment on above: Performed By: #### C MP ####[facility] Qggfcrobzr3801[address] [place], [place] [address]Dr. Farhat Leal Urea nitrogen/Creatinine [Mass ratio] 36.1 mg/mg Normal [facility] Comment on above: Performed By: #### C MP ####[facility] Xutiejubev9[address] [place], [place] [address]Dr. Farhat Leal PROTIMEon 05-29-2022 INR Coag (PPP) [Relative time] 2.41 {INR} Normal [facility] Comment on above: Performed By: #### P T ####[facility] Fslvjerroa080[address] [place], [place] [address]Dr. Farhat Leal INR GUIDELINES SEE BELOW Normal [facility] Comment on above: Result Comment: MALINA RED INR: 2.0 - 3.0 CONDITIONS NOT LISTED BELOW 2.5 - 3.5 FOR PROSTHETIC HEART VALVE REPLACEMENT 2.5 - 3.5 RECURRENT THROMBOSIS Performed By: #### P T ####[facility] Bksursxsvv570[address] [place], [place] [address]Dr. Farhat Leal PT Coag (PPP) [Time] 24.3 s Critically high 9.0-11.6 [facility] Comment on above: Performed By: #### P T ####[facility] Ocrbgcznox[address] [place], [place] [address]DrSkylar Leal FK506 (TACROLIMUS) WHOLE BLO ODon 05-25-2022 Tacrolimus (FK506), Blood 5.1 ng/mL Normal 2.0-20.0 [facility] Comment on above: Result Comment: Trou gh (immediately following transplant) 15.0 . Trough (steady state, 2 weeks or more after transplant): 3.0 - 8.0 . Performed by LC-MS/MS technology. Performed By: #### F K506T ####[facility] Uxpyuifytv0813[address] [place], [place] [address]DrSkylar Leal CBC AUTO DIFFon 05-22-2022 BASO # 0.0 103/ul Normal 0.0-0.1 [facility] Comment on above: Performed By: #### C BC ####[facility] Kgalgkyssa0936[address] [place], [place] [address]DrSkylar Leal Basophils/100 WBC (Bld) 0.5 % Normal 0.2-2.0 [facility] Comment on above: Performed By: #### C BC ####[facility] Tcpnsuxjbi926[address] [place], [place] [address]DrSkylar Leal EO # 0.2 103/ul Normal 0.0-0.7 [facility] Comment on above: Performed By: #### C BC ####[facility] Ouftcxstgj0844[address] [place], [place] [address]DrSkylar Leal Eosinophils/100 WBC (Bld) 4.0 % Normal 0.9-7.0 [facility] Comment on above: Performed By: #### C BC ####[facility] Jhintdibdf507162 [address] [place], [place] [address]DrSkylar Leal Erythrocyte distribution width (RBC) [Ratio] 15.5 % Critically high 11.0-15.0 [facility] Comment on above: Performed By: #### C BC ####[facility] Qdoqhjfucs343[address] [place], [place] [address]DrSkylar Leal Hematocrit (Bld) [Volume fraction] 34.1 % Critically low 42.0-54.0 [facility] Comment on above: Performed By: #### C BC ####[facility] Fiaxnpllah33[address] [place] [address]Dr. Farhat Leal Hemoglobin (Bld) [Mass/Vol] 11.3 g/dL Critically low 14.0-18.0 [facility] Comment on above: Performed By: #### C BC ####[facility] Bhdokusoqe1729 [place] [address]Dr. Madelynlorri Leal IG # 0.03 10e3/ul Normal 0.00-0.03 [facility] Comment on above: Performed By: #### C BC ####[facility] Dtjukpnoen834262 [address] [place], [place] [address]Dr. Farhat Leal IG % 0.5 % Normal 0.0-0.5 [facility] Comment on above: Performed By: #### C BC ####[facility] Awkhvlbupm932062 [address] [place], [place] [address]Dr. Farhat Leal LYMPH # 2.1 103/ul Normal 1.2-3.8 [facility] Comment on above: Performed By: #### C BC ####[facility] Vdgkhkzouw3365[address] [place], [place] [address]DrSkylar Farhat Elvis Lymphocytes/100 WBC (Bld) 34.6 % Normal 20.5-60.0 [facility] Comment on above: Performed By: #### C BC ####[facility] Ufciwbbvav119962 [address] [place], [place] [address]Dr. Farhat Leal MANUAL DIFF REQ NO Normal [facility] Comment on above: Performed By: #### C BC ####[facility] Rbbyegighf462362 [address] [place], [place] [address]Dr. Farhat Leal MCH (RBC) [Entitic mass] 30.3 pg Normal 25.9-34.0 [facility] Comment on above: Performed By: #### C BC ####[facility] Igtdnrkrdd547162 [address] [place], [place] [address]Dr. Farhat Leal MCHC (RBC) [Mass/Vol] 33.1 g/dL Normal 29.9-35.2 [facility] Comment on above: Performed By: #### C BC ####[facility] Bgoyhndsmo5815 [place] [address]DrSkylar Joshilorri Elvis MCV (RBC) [Entitic vol] 91.4 fL Normal 80.0-94.0 [facility] Comment on above: Performed By: #### C BC ####[facility] Nimmgtvjle2036[address] [place], [place] [address]DrSkylar Leal MONO # 0.7 103/ul Normal 0.3-0.8 [facility] Comment on above: Performed By: #### C BC ####[facility] Zsgltholnq095[address] [place], [place] [address]DrSkylar Leal Monocytes/100 WBC (Bld) 11.6 % Normal 1.7-12.0 [facility] Comment on above: Performed By: #### C BC ####[facility] Gkfvmwohkg4716[address] [place], [place] [address]DrSkylar Leal NEUT # 2.9 103/ul Normal 1.4-6.5 [facility] Comment on above: Performed By: #### C BC ####[facility] Kltrvlezxa0201[address] [place], [place] [address]DrSkylar Leal Neutrophils/100 WBC (Bld) 48.8 % Normal 43.0-75.0 [facility] Comment on above: Performed By: #### C BC ####[facility] Sbebxckilr600[address] [place], [place] [address]DrSkylar Leal Platelet mean volume (Bld) [Entitic vol] 10.9 fL Normal 9.5-13.5 [facility] Comment on above: Performed By: #### C BC ####[facility] Jnnthsowsq1077[address] [place], [place] [address]DrSkylar Leal PLT 186 103/ul Normal 150-450 [facility] Comment on above: Performed By: #### C BC ####[facility] Llyvcfdtde389[address] [place], [place] [address]DrSkylar Leal RBC 3.73 106/ul Critically low 4.70-6.10 [facility] Comment on above: Performed By: #### C BC ####[facility] Wyvtttoayq2412 [place] [address]Dr. Farhat Leal WBC 6.0 103/ul Normal 4.0-11.0 [facility] Comment on above: Performed By: #### C BC ####[facility] Rfvcktuijm7080 [place] [address]DrSkylar Leal PROF 14(COMP METB)on 023 Albumin [Mass/Vol] 2.7 g/dL Critically low 3.4-5.0 [facility] Comment on above: Performed By: #### C MP ####[facility] Jdkikezlmx3877[address] [place], [place] [address]Dr. Farhat Leal Albumin/Globulin [Mass ratio] 0.8 {ratio} Normal [facility] Comment on above: Performed By: #### C MP ####[facility] Gpanvhjzsz9738[address] [place], [place] [address]Dr. Farhat Leal ALP [Catalytic activity/Vol] 60 U/L Normal 46-116 [facility] Comment on above: Performed By: #### C MP ####[facility] Iwmmkrwcey3480[address] [place], [place] [address]Dr. Farhat Leal ALT [Catalytic activity/Vol] 17 U/L Normal 16-63 [facility] Comment on above: Performed By: #### C MP ####[facility] Egtfznzpzu1933[address] [place], [place] [address]Dr. Farhat Leal Anion gap [Moles/Vol] 9.6 mmol/L Normal [facility] Comment on above: Performed By: #### C MP ####[facility] Kjizspqrzv708[address] [place], [place] [address]Dr. Farhat Leal AST [Catalytic activity/Vol] 14 U/L Critically low 15-37 [facility] Comment on above: Performed By: #### C MP ####[facility] Zajjljmvgi735[address] [place], [place] [address]Dr. Farhat Leal Bilirubin [Mass/Vol] 0.5 mg/dL Normal 0.2-1.0 [facility] Comment on above: Performed By: #### C MP ####[facility] Rjxhnvjowt14[address] [place] [address]Dr. Farhat Elvis Calcium [Mass/Vol] 8.4 mg/dL Critically low 8.5-10.1 Th e [facility] Comment on above: Performed By: #### C MP ####[facility] Hxtkqoiqiw5487 [place] [address]Dr. Madelynlorri Elvis Chloride [Moles/Vol] 104 mmol/L Normal 98-107 [facility] Comment on above: Performed By: #### C MP ####[facility] Tkpxiqrnnq5103 [place] [address]Dr. Madelynlorri Elvis CO2 [Moles/Vol] 27.2 mmol/L Normal 21.0-32.0 [facility] Comment on above: Performed By: #### C MP ####[facility] Ogafyfrqmg4301[address] [place], [place] [address]Dr. Madelynlorri Elvis Creatinine [Mass/Vol] 1.24 mg/dL Normal 0.70-1.30 [facility] Comment on above: Performed By: #### C MP ####[facility] Logafqaqoc712[address] [place], [place] [address]Dr. Madelynlorri Elvis EGFR-AF PORTUGUESE >60 Normal >=60 [facility] Comment on above: Performed By: #### C MP ####[facility] Dlumwarjhp1384 [place] [address]Dr. Farhat Leal EGFR-NON AF PORT[place]UESE 57 mL/min/1.73m2 Critically low >=60 [facility] Comment on above: Performed By: #### C MP ####[facility] Jtltnpgylb[address] [place], [place] [address]Dr. Farhat Leal Globulin (S) [Mass/Vol] 3.3 g/dL Normal [facility] Comment on above: Performed By: #### C MP ####[facility] Qsevurhtxe5784 [place] [id number]. Farhat Leal Glucose [Mass/Vol] 275 mg/dL Critically high 74-106 T [facility] Comment on above: Performed By: #### C MP ####[facility] Ovuyaiwidt9446 [place] [address]Dr. Farhat Elvis Potassium [Moles/Vol] 3.8 mmol/L Normal 3.5-5.1 [facility] Comment on above: Performed By: #### C MP ####[facility] Nfyhmlaapq2286 [place] [address]Dr. Farhat Leal Protein [Mass/Vol] 6.0 g/dL Critically low 6.4-8.2 [facility] Comment on above: Performed By: #### C MP ####[facility] Wtjqlpzoct6420 [place] [address]Dr. Farhat Leal Sodium [Moles/Vol] 137 mmol/L Normal 136-145 [facility] Comment on above: Performed By: #### C MP ####[facility] Iyzpjvydep4140 [place] [address]Dr. Farhat Leal Urea nitrogen [Mass/Vol] 54.0 mg/dL Critically high 7.0-18.0 [facility] Comment on above: Performed By: #### C MP ####[facility] Xbywmlahhd4116 [place] [address]Dr. Madelynlorri Leal Urea nitrogen/Creatinine [Mass ratio] 43.5 mg/mg Normal [facility] Comment on above: Performed By: #### C MP ####[facility] Igntatdtzc5828 [place] [address]Dr. Farhat Leal PROTIMEon 05-22-2022 INR Coag (PPP) [Relative time] 2.27 {INR} Normal [facility] Comment on above: Performed By: #### P T ####[facility] Drufifoknm5331 [place] [address]Dr. Farhat Leal INR GUIDELINES SEE BELOW Normal [facility] Comment on above: Result Comment: MALINA RED INR: 2.0 - 3.0 CONDITIONS NOT LISTED BELOW 2.5 - 3.5 FOR PROSTHETIC HEART VALVE REPLACEMENT 2.5 - 3.5 RECURRENT THROMBOSIS Performed By: #### P T ####[facility] Smvyqqvxec3811 [place] [address]Dr. Madelynlorri Leal PT Coag (PPP) [Time] 23.0 s Critically high 9.0-11.6 [facility] Comment on above: Performed By: #### P T ####[facility] Vbcnpttbvk176[address] [place], [place] [address]Dr. Farhat Elvis FK506 (TACROLIMUS) WHOLE BLO ODon 05-19-2022 Tacrolimus (FK506), Blood 7.8 ng/mL Normal 2.0-20.0 [facility] Comment on above: Result Comment: Trou gh (immediately following transplant) 15.0 . Trough (steady state, 2 weeks or more after transplant): 3.0 - 8.0 . Performed by LC-MS/MS technology. Performed By: #### F K506T ####[facility] Tjerosezrn6730[address] [place], [place] [address]Dr. Farhat Leal CBC AUTO DIFFon 05-15-2022 BASO # 0.0 103/ul Normal 0.0-0.1 [facility] Comment on above: Performed By: #### C BC ####[facility] Ejafdjmwcl446[address] [place], [place] [address]Dr. Farhat Leal Basophils/100 WBC (Bld) 0.4 % Normal 0.2-2.0 [facility] Comment on above: Performed By: #### C BC ####[facility] Vyrsiuefqk569[address] [place], [place] [address]Dr. Farhat Leal EO # 0.2 103/ul Normal 0.0-0.7 [facility] Comment on above: Performed By: #### C BC ####[facility] Nlxwelzcjc8670[address] [place], [place] [address]Dr. Farhat Leal Eosinophils/100 WBC (Bld) 3.0 % Normal 0.9-7.0 [facility] Comment on above: Performed By: #### C BC ####[facility] Fylhsumhqi415[address] [place], [place] [address]Dr. Farhat Leal Erythrocyte distribution width (RBC) [Ratio] 15.7 % Critically high 11.0-15.0 [facility] Comment on above: Performed By: #### C BC ####[facility] Ilshwfoasb4494 [place] [address]Dr. Farhat Leal Hematocrit (Bld) [Volume fraction] 36.8 % Critically low 42.0-54.0 [facility] Comment on above: Performed By: #### C BC ####[facility] Dohhwszdic4630 [place] [address]Dr. Farhat Elvis Hemoglobin (Bld) [Mass/Vol] 12.4 g/dL Critically low 14.0-18.0 [facility] Comment on above: Performed By: #### C BC ####[facility] Fzkhovltwy2829[address] [place], [place] [address]Dr. Madelynlorri Leal IG # 0.01 10e3/ul Normal 0.00-0.03 [facility] Comment on above: Performed By: #### C BC ####[facility] Gznyuotdsy686[address] [place], [place] [address]Dr. Farhat Leal IG % 0.1 % Normal 0.0-0.5 [facility] Comment on above: Performed By: #### C BC ####[facility] Pyqafaexip329[address] [place], [place] [address]Dr. Madelynlorri Leal LYMPH # 2.4 103/ul Normal 1.2-3.8 [facility] Comment on above: Performed By: #### C BC ####[facility] Qakwbsmiov6860[address] [place], [place] [address]DrSkylar Leal Lymphocytes/100 WBC (Bld) 35.6 % Normal 20.5-60.0 [facility] Comment on above: Performed By: #### C BC ####[facility] Bibvuhyuwm1209[address] [place], [place] [address]DrSkylar Leal MANUAL DIFF REQ NO Normal [facility] Comment on above: Performed By: #### C BC ####[facility] Owlwefztju6230[address] [place], [place] [address]DrSkylar Leal MCH (RBC) [Entitic mass] 30.1 pg Normal 25.9-34.0 [facility] Comment on above: Performed By: #### C BC ####[facility] Quzosarted0831 [place] [id number]. Farhat Elvis MCHC (RBC) [Mass/Vol] 33.7 g/dL Normal 29.9-35.2 [facility] Comment on above: Performed By: #### C BC ####[facility] Htsaeyusaq9076 [place] [address]Dr. Farhat Leal MCV (RBC) [Entitic vol] 89.3 fL Normal 80.0-94.0 [facility] Comment on above: Performed By: #### C BC ####[facility] Khsxceeyga1360[address] [place], [place] [address]Dr. Farhat Leal MONO # 0.7 103/ul Normal 0.3-0.8 [facility] Comment on above: Performed By: #### C BC ####[facility] Abfejnndtr2099[address] [place], [place] [address]Dr. Farhat Leal Monocytes/100 WBC (Bld) 10.8 % Normal 1.7-12.0 [facility] Comment on above: Performed By: #### C BC ####[facility] Oirevzgxla450[address] [place], [place] [address]Dr. Farhat Leal NEUT # 3.4 103/ul Normal 1.4-6.5 [facility] Comment on above: Performed By: #### C BC ####[facility] Tgyyrufedy2470[address] [place], [place] [address]Dr. Farhat Leal Neutrophils/100 WBC (Bld) 50.1 % Normal 43.0-75.0 [facility] Comment on above: Performed By: #### C BC ####[facility] Xzdlpkblae205[address] [place], [place] [address]Dr. Farhat Leal Platelet mean volume (Bld) [Entitic vol] 10.2 fL Normal 9.5-13.5 [facility] Comment on above: Performed By: #### C BC ####[facility] Ohuomyqopu35[address] [place], [place] [address]Dr. Farhat Leal PLT 190 103/ul Normal 150-450 [facility] Comment on above: Performed By: #### C BC ####[facility] Ubdwyavitj7109 [place] [id number]. Farhat Leal RBC 4.12 106/ul Critically low 4.70-6.10 [facility] Comment on above: Performed By: #### C BC ####[facility] Uxiogeinbb5660 [place] [address]Dr. Farhat Leal WBC 6.8 103/ul Normal 4.0-11.0 [facility] Comment on above: Performed By: #### C BC ####[facility] Vhsuihgile9469 [place] [address]Dr. Farhat Leal PROF 14(COMP METB)on 023 Albumin [Mass/Vol] 2.8 g/dL Critically low 3.4-5.0 [facility] Comment on above: Performed By: #### C MP ####[facility] Cgocmhubzq[address] [place], [place] [address]Dr. Farhat Leal Albumin/Globulin [Mass ratio] 0.9 {ratio} Normal [facility] Comment on above: Performed By: #### C MP ####[facility] Gbbavnjtbe5239[address] [place], [place] [address]Dr. Farhat Leal ALP [Catalytic activity/Vol] 66 U/L Normal 46-116 [facility] Comment on above: Performed By: #### C MP ####[facility] Rmeruibflo4800[address] [place], [place] [address]Dr. Farhat Leal ALT [Catalytic activity/Vol] 15 U/L Critically low 16-63 [facility] Comment on above: Performed By: #### C MP ####[facility] Hfmfsrzpkf8922 [place] [address]Dr. Farhat Leal Anion gap [Moles/Vol] 11.1 mmol/L Normal [facility] Comment on above: Performed By: #### C MP ####[facility] Lfvyuvadzu5824 [place] [address]Dr. Farhat Leal AST [Catalytic activity/Vol] 14 U/L Critically low 15-37 [facility] Comment on above: Performed By: #### C MP ####[facility] Jvdmnqzzzp6599 [place] [id number]. Farhat Leal Bilirubin [Mass/Vol] 0.8 mg/dL Normal 0.2-1.0 [facility] Comment on above: Performed By: #### C MP ####[facility] Rrwctaxyio4080 [place] [id number]. Farhat Leal Calcium [Mass/Vol] 8.9 mg/dL Normal 8.5-10.1 [facility] Comment on above: Performed By: #### C MP ####[facility] Fectrahnpz2311 [place] [address]Dr. Farhat Leal Chloride [Moles/Vol] 101 mmol/L Normal 98-107 [facility] Comment on above: Performed By: #### C MP ####[facility] Fwgbopvxof0724[address] [place], [place] [address]Dr. Farhat Leal CO2 [Moles/Vol] 28.2 mmol/L Normal 21.0-32.0 [facility] Comment on above: Performed By: #### C MP ####[facility] Popsflbavj3424[address] [place], [place] [address]Dr. Farhat Leal Creatinine [Mass/Vol] 1.23 mg/dL Normal 0.70-1.30 [facility] Comment on above: Performed By: #### C MP ####[facility] Osugjhdssg025[address] [place], [place] [address]Dr. Farhat Leal EGFR-AF PORTUGUESE >60 Normal >=60 [facility] Comment on above: Performed By: #### C MP ####[facility] Uqwxsgwrkc[address] [place], [place] [address]Dr. Farhat Leal EGFR-NON AF [place]UGUESE 57 mL/min/1.73m2 Critically low >=60 [facility] Comment on above: Performed By: #### C MP ####[facility] Ndbpdawuxq06[address] [place], [place] [address]Dr. Farhat Leal Globulin (S) [Mass/Vol] 3.2 g/dL Normal [facility] Comment on above: Performed By: #### C MP ####[facility] Zuftulrpqn4946 [place] [id number]. Farhat Leal Glucose [Mass/Vol] 333 mg/dL Critically high 74-106 T [facility] Comment on above: Performed By: #### C MP ####[facility] Qcsovzfkoo1034 [place] [id number]. Farhat Leal Potassium [Moles/Vol] 4.3 mmol/L Normal 3.5-5.1 [facility] Comment on above: Performed By: #### C MP ####[facility] Rqqfjuucav6158 [place] [id number]. Farhat Leal Protein [Mass/Vol] 6.0 g/dL Critically low 6.4-8.2 [facility] Comment on above: Performed By: #### C MP ####[facility] Eanskxetpj8117 [place] [address]Dr. Farhat Leal Sodium [Moles/Vol] 136 mmol/L Normal 136-145 [facility] Comment on above: Performed By: #### C MP ####[facility] Jgbzcbekaz5863 [place] [id number]. Farhat Leal Urea nitrogen [Mass/Vol] 58.0 mg/dL Critically high 7.0-18.0 [facility] Comment on above: Performed By: #### C MP ####[facility] Hbktlvsajq3893 [place] [id number]. Farhat Leal Urea nitrogen/Creatinine [Mass ratio] 47.2 mg/mg Normal [facility] Comment on above: Performed By: #### C MP ####[facility] Cswranfhmj0750 [place] [id number]. Farhat Elvis PROTIMEon 05-13-2022 INR Coag (PPP) [Relative time] 3.51 {INR} Normal [facility] Comment on above: Performed By: #### P T ####[facility] Gdbkurxyuf2921 [place] [id number]. Madelynlorri Elvis INR GUIDELINES SEE BELOW Normal [facility] Comment on above: Result Comment: MALINA RED INR: 2.0 - 3.0 CONDITIONS NOT LISTED BELOW 2.5 - 3.5 FOR PROSTHETIC HEART VALVE REPLACEMENT 2.5 - 3.5 RECURRENT THROMBOSIS Performed By: #### P T ####[facility] Qaqmijsqlr[address] [place], [place] [address]DrSkylar Leal PT Coag (PPP) [Time] 34.7 s Critically high 9.0-11.6 [facility] Comment on above: Performed By: #### P T ####[facility] Osnixstdri788[address] [place], [place] [address]Dr. Farhat Leal FK506 (TACROLIMUS) WHOLE BLO ODon 05-11-2022 Tacrolimus (FK506), Blood 14.4 ng/mL Normal 2.0-20.0 [facility] Comment on above: Result Comment: Trou gh (immediately following transplant) 15.0 . Trough (steady state, 2 weeks or more after transplant): 3.0 - 8.0 . Performed by LC-MS/MS technology. Performed By: #### F K506T ####[facility] Oatjeuhwex26[address] [place], [place] [address]DrSkylar Leal CBC AUTO DIFFon 05-08-2022 BASO # 0.0 103/ul Normal 0.0-0.1 [facility] Comment on above: Performed By: #### C BC ####[facility] Qitarpvlgy43[address] [place], [place] [address]DrSkylar Leal Basophils/100 WBC (Bld) 0.5 % Normal 0.2-2.0 [facility] Comment on above: Performed By: #### C BC ####[facility] Dfkjvjrtsf[address] [place], [place] [address]DrSkylar Leal EO # 0.2 103/ul Normal 0.0-0.7 [facility] Comment on above: Performed By: #### C BC ####[facility] Qomduxopie[address] [place], [place] [address]DrSkylar Leal Eosinophils/100 WBC (Bld) 2.9 % Normal 0.9-7.0 [facility] Comment on above: Performed By: #### C BC ####[facility] Zmkcpcatck89[address] [place], [place] [address]Dr. Farhat Leal Erythrocyte distribution width (RBC) [Ratio] 16.0 % Critically high 11.0-15.0 [facility] Comment on above: Performed By: #### C BC ####[facility] Fsfgamfgcd9719 [place] [address]Dr. Farhat Leal Hematocrit (Bld) [Volume fraction] 35.7 % Critically low 42.0-54.0 [facility] Comment on above: Performed By: #### C BC ####[facility] Ytbiuuixfm[address] [place] [address]Dr. Farhat Leal Hemoglobin (Bld) [Mass/Vol] 11.9 g/dL Critically low 14.0-18.0 [facility] Comment on above: Performed By: #### C BC ####[facility] Cmufhsbysm[address] [place], [place] [address]Dr. Farhat Elvis IG # 0.03 10e3/ul Normal 0.00-0.03 [facility] Comment on above: Performed By: #### C BC ####[facility] Tsfwrdnlgv526[address] [place], [place] [address]Dr. Farhat Elvis IG % 0.5 % Normal 0.0-0.5 [facility] Comment on above: Performed By: #### C BC ####[facility] Gtprqaudni064[address] [place], [place] [address]Dr. Farhat Elvis LYMPH # 2.4 103/ul Normal 1.2-3.8 [facility] Comment on above: Performed By: #### C BC ####[facility] Agglxtszkl046262 [address] [place], [place] [address]Dr. Madelynlorri Leal Lymphocytes/100 WBC (Bld) 37.8 % Normal 20.5-60.0 [facility] Comment on above: Performed By: #### C BC ####[facility] Awjzmatxgx47[address] [place], [place] [address]Dr. Madelynlorri Leal MANUAL DIFF REQ NO Normal [facility] Comment on above: Performed By: #### C BC ####[facility] Nczicxblom4423[address] [place], [place] [address]Dr. Farhat Leal MCH (RBC) [Entitic mass] 30.4 pg Normal 25.9-34.0 [facility] Comment on above: Performed By: #### C BC ####[facility] Zwfldcexhq[address] [place] [address]Dr. Farhat Leal MCHC (RBC) [Mass/Vol] 33.3 g/dL Normal 29.9-35.2 [facility] Comment on above: Performed By: #### C BC ####[facility] Byrikhyujv983162 [address] [place], [place] [address]Dr. Farhat Leal MCV (RBC) [Entitic vol] 91.1 fL Normal 80.0-94.0 [facility] Comment on above: Performed By: #### C BC ####[facility] Dtgjvqtset0728[address] [place], [place] [address]Dr. Farhat Elvis MONO # 0.7 103/ul Normal 0.3-0.8 [facility] Comment on above: Performed By: #### C BC ####[facility] Syunlpiime9[address] [place], [place] [address]Dr. Farhat Elvis Monocytes/100 WBC (Bld) 11.1 % Normal 1.7-12.0 [facility] Comment on above: Performed By: #### C BC ####[facility] Ywmhrkezhq6527[address] [place], [place] [address]Dr. Farhat Leal NEUT # 2.9 103/ul Normal 1.4-6.5 [facility] Comment on above: Performed By: #### C BC ####[facility] Gmcizefgic416[address] [place], [place] [address]Dr. Farhat Elvis Neutrophils/100 WBC (Bld) 47.2 % Normal 43.0-75.0 [facility] Comment on above: Performed By: #### C BC ####[facility] Bkxzzihcpd111462 [address] [place], [place] [address]Dr. Farhat Leal Platelet mean volume (Bld) [Entitic vol] 11.0 fL Normal 9.5-13.5 [facility] Comment on above: Performed By: #### C BC ####[facility] Htficltctk9165 [place] [id number]. Farhat Leal PLT 191 103/ul Normal 150-450 [facility] Comment on above: Performed By: #### C BC ####[facility] Egprktojxs7436 [place] [address]Dr. Farhat Leal RBC 3.92 106/ul Critically low 4.70-6.10 [facility] Comment on above: Performed By: #### C BC ####[facility] Fsksisqzpv3887 [place] [address]Dr. Farhat Leal WBC 6.2 103/ul Normal 4.0-11.0 [facility] Comment on above: Performed By: #### C BC ####[facility] Hvfmmmjxpd650[address] [place], [place] [address]Dr. Farhat Leal MAGNESIUMon 05-08-2022 Magnesium [Mass/Vol] 1.9 mg/dL Normal 1.8-2.4 [facility] Comment on above: Performed By: #### P HOS, MG ####[facility] Nanbaavxwv298[address] [place], [place] [address]Dr. Farhat Leal PHOSPHORUSon 05-08-2022 Phosphate [Mass/Vol] 4.5 mg/dL Normal 2.6-4.7 [facility] Comment on above: Performed By: #### P HOS, MG ####[facility] Oaulxfecxh996[address] [place], [place] [address]Dr. Farhat Leal PROF 14(COMP METB)on 023 Albumin [Mass/Vol] 2.9 g/dL Critically low 3.4-5.0 [facility] Comment on above: Performed By: #### C MP ####[facility] Cddjajgilb22[address] [place] [address]Dr. Farhat Leal Albumin/Globulin [Mass ratio] 0.9 {ratio} Normal [facility] Comment on above: Performed By: #### C MP ####[facility] Noeslhzjqk0613 [place] [address]Dr. Farhat Leal ALP [Catalytic activity/Vol] 70 U/L Normal 46-116 [facility] Comment on above: Performed By: #### C MP ####[facility] Oidytmywej1532 [place] [id number]. Farhat Leal ALT [Catalytic activity/Vol] 13 U/L Critically low 16-63 [facility] Comment on above: Performed By: #### C MP ####[facility] Vzzjfujcje3436 [place] [id number]. Farhat Leal Anion gap [Moles/Vol] 14.6 mmol/L Normal [facility] Comment on above: Performed By: #### C MP ####[facility] Bcaeopjkue4672 [place] [id number]. Farhat Leal AST [Catalytic activity/Vol] 17 U/L Normal 15-37 [facility] Comment on above: Performed By: #### C MP ####[facility] Tdqmsolxlq644[address] [place], [place] [address]Dr. Farhat Leal Bilirubin [Mass/Vol] 0.8 mg/dL Normal 0.2-1.0 [facility] Comment on above: Performed By: #### C MP ####[facility] Mfkdrhgino6825 [place] [address]Dr. Farhat Leal Calcium [Mass/Vol] 8.9 mg/dL Normal 8.5-10.1 [facility] Comment on above: Performed By: #### C MP ####[facility] Hhajyneaip9454 [place] [address]Dr. Farhat Leal Chloride [Moles/Vol] 102 mmol/L Normal 98-107 [facility] Comment on above: Performed By: #### C MP ####[facility] Stqclkmcqe8292 [place] [id number]. Farhat Leal CO2 [Moles/Vol] 22.9 mmol/L Normal 21.0-32.0 [facility] Comment on above: Performed By: #### C MP ####[facility] Dczjbjfnxc8[address] [place], [place] [id number]. Farhat Leal Creatinine [Mass/Vol] 1.20 mg/dL Normal 0.70-1.30 [facility] Comment on above: Performed By: #### C MP ####[facility] Lrtyoacawr0136 [place], [place] [address]Vr. Farhat Leal EGFR-AF PORTUGUESE >60 Normal >=60 [facility] Comment on above: Performed By: #### C MP ####[facility] Bpjljmtyhk9926 [place], [place] [address]Af. Farhat Leal EGFR-NON AF PORTUGUESE 59 mL/min/1.73m2 Critically low >=60 [facility] Comment on above: Performed By: #### C MP ####[facility] Pqlwhoeobs4516 [place] [id number]. Farhat Leal Globulin (S) [Mass/Vol] 3.1 g/dL Normal [facility] Comment on above: Performed By: #### C MP ####[facility] Wapnaoiihp6790 [place] [id number]. Farhat Leal Glucose [Mass/Vol] 447 mg/dL Critically high 74-106 [facility] Comment on above: Performed By: #### C MP ####[facility] Cjxslxaoyp3587 [place] [id number]. Farhat Leal Potassium [Moles/Vol] 4.5 mmol/L Normal 3.5-5.1 [facility] Comment on above: Performed By: #### C MP ####[facility] Wqsetfzqvq4056 [place] [id number]. Farhat Leal Protein [Mass/Vol] 6.0 g/dL Critically low 6.4-8.2 [facility] Comment on above: Performed By: #### C MP ####[facility] Hywerqkfdm8240 [place] [id number]. Farhat Leal Sodium [Moles/Vol] 135 mmol/L Critically low 136-145 [facility] Comment on above: Performed By: #### C MP ####[facility] Ufanxfhtoe7075 [place] [id number]. Farhat Leal Urea nitrogen [Mass/Vol] 52.0 mg/dL Critically high 7.0-18.0 [facility] Comment on above: Performed By: #### C MP ####[facility] Hgsraydjkx5256 [place] [address]DrSkylar Leal Urea nitrogen/Creatinine [Mass ratio] 43.3 mg/mg Normal [facility] Comment on above: Performed By: #### C MP ####[facility] Yursedckhx9718 [place] [address]DrSkylar Leal PROTIMEon 05-06-2022 INR Coag (PPP) [Relative time] 2.25 {INR} Normal [facility] Comment on above: Performed By: #### P T ####[facility] Ygpwsbfucc435[address] [place], [place] [address]DrSkylar Leal INR GUIDELINES SEE BELOW Normal [facility] Comment on above: Result Comment: MALINA RED INR: 2.0 - 3.0 CONDITIONS NOT LISTED BELOW 2.5 - 3.5 FOR PROSTHETIC HEART VALVE REPLACEMENT 2.5 - 3.5 RECURRENT THROMBOSIS Performed By: #### P T ####[facility] Zsonlhdafd1735[address] [place], [place] [address]DrSkylar Leal PT Coag (PPP) [Time] 22.8 s Critically high 9.0-11.6 [facility] Comment on above: Performed By: #### P T ####[facility] Bfqfdruhmr6915[address] [place], [place] [address]DrSkylar Leal FK506 (TACROLIMUS) WHOLE BLO ODon 05-04-2022 Tacrolimus (FK506), Blood 10.4 ng/mL Normal 2.0-20.0 [facility] Comment on above: Result Comment: Trou gh (immediately following transplant) 15.0 . Trough (steady state, 2 weeks or more after transplant): 3.0 - 8.0 . Performed by LC-MS/MS technology. Performed By: #### F K506T ####[facility] Wvjdbgjrfz[address] [place], [place] [address]DrSkylar Leal CBC AUTO DIFFon 05-01-2022 BASO # 0.1 103/ul Normal 0.0-0.1 [facility] Comment on above: Performed By: #### C BC ####[facility] Sydskpozeb337[address] [place], [place] [address]DrSkylar Leal Basophils/100 WBC (Bld) 0.7 % Normal 0.2-2.0 [facility] Comment on above: Performed By: #### C BC ####[facility] Haszstufry[address] [place] [address]Dr. Farhat Leal EO # 0.2 103/ul Normal 0.0-0.7 [facility] Comment on above: Performed By: #### C BC ####[facility] Zqrafifwxq7569[address] [place], [place] [address]Dr. Farhat Leal Eosinophils/100 WBC (Bld) 3.2 % Normal 0.9-7.0 [facility] Comment on above: Performed By: #### C BC ####[facility] Ykajaoxmei513[address] [place], [place] [address]Dr. Farhat Leal Erythrocyte distribution width (RBC) [Ratio] 16.4 % Critically high 11.0-15.0 [facility] Comment on above: Performed By: #### C BC ####[facility] Ligaiipgmn4735[address] [place], [place] [address]Dr. Farhat Leal Hematocrit (Bld) [Volume fraction] 35.1 % Critically low 42.0-54.0 [facility] Comment on above: Performed By: #### C BC ####[facility] Vxysyahotu6[address] [place], [place] [address]Dr. Farhat Leal Hemoglobin (Bld) [Mass/Vol] 11.6 g/dL Critically low 14.0-18.0 [facility] Comment on above: Performed By: #### C BC ####[facility] Rlcqyqsaqt019[address] [place], [place] [address]Dr. Farhat Leal IG # 0.03 10e3/ul Normal 0.00-0.03 [facility] Comment on above: Performed By: #### C BC ####[facility] Siaubchpnu4028[address] [place], [place] [address]Dr. Farhat Leal IG % 0.4 % Normal 0.0-0.5 [facility] Comment on above: Performed By: #### C BC ####[facility] Qzjbjmdrio7740 [place] [address]Dr. Farhat Elvis LYMPH # 2.4 103/ul Normal 1.2-3.8 [facility] Comment on above: Performed By: #### C BC ####[facility] Vzbrrizfww9424 [place] [address]Dr. Farhat Elvis Lymphocytes/100 WBC (Bld) 35.1 % Normal 20.5-60.0 [facility] Comment on above: Performed By: #### C BC ####[facility] Qutzobapyf6119 [place] [address]Dr. Madelynlorri Leal MANUAL DIFF REQ NO Normal [facility] Comment on above: Performed By: #### C BC ####[facility] Omtfjvgcfx0647 [place] [address]Dr. Farhat Elvis MCH (RBC) [Entitic mass] 29.4 pg Normal 25.9-34.0 [facility] Comment on above: Performed By: #### C BC ####[facility] Eytvqexjjr[address] [place], [place] [address]Dr. Farhat Elvis MCHC (RBC) [Mass/Vol] 33.0 g/dL Normal 29.9-35.2 [facility] Comment on above: Performed By: #### C BC ####[facility] Syraehxlsi18[address] [place], [place] [address]Dr. Madelynlorri Leal MCV (RBC) [Entitic vol] 88.9 fL Normal 80.0-94.0 [facility] Comment on above: Performed By: #### C BC ####[facility] Lnvkjxjkuk[address] [place], [place] [address]Dr. Farhat Elvis MONO # 0.7 103/ul Normal 0.3-0.8 [facility] Comment on above: Performed By: #### C BC ####[facility] Nxcadpzzex5913[address] [place], [place] [address]Dr. Madelynlorri Leal Monocytes/100 WBC (Bld) 9.6 % Normal 1.7-12.0 [facility] Comment on above: Performed By: #### C BC ####[facility] Pdwhmjpgdg745[address] [place], [place] [address]Dr. Farhat Leal NEUT # 3.5 103/ul Normal 1.4-6.5 [facility] Comment on above: Performed By: #### C BC ####[facility] Poqvafpmwm7860 [place] [id number]. Farhat Leal Neutrophils/100 WBC (Bld) 51.0 % Normal 43.0-75.0 [facility] Comment on above: Performed By: #### C BC ####[facility] Saxomvnaxi75[address] [place] [address]Dr. Farhat Leal Platelet mean volume (Bld) [Entitic vol] 10.3 fL Normal 9.5-13.5 [facility] Comment on above: Performed By: #### C BC ####[facility] Txsninvvld4045 [place] [address]Dr. Farhat Elvis PLT 184 103/ul Normal 150-450 [facility] Comment on above: Performed By: #### C BC ####[facility] Ddajbxmvgz9736 [place] [address]Dr. Madelynlorri Elvis RBC 3.95 106/ul Critically low 4.70-6.10 [facility] Comment on above: Performed By: #### C BC ####[facility] Vglsdlyvsv8654 [place] [address]Dr. Farhat Elvis WBC 7.0 103/ul Normal 4.0-11.0 [facility] Comment on above: Performed By: #### C BC ####[facility] Rbcngurvlw4393 [place] [address]DrSkylar Leal PROF 14(COMP METB)on 023 Albumin [Mass/Vol] 2.6 g/dL Critically low 3.4-5.0 [facility] Comment on above: Performed By: #### C MP ####[facility] Oqqdueyuuu8337 [place] [address]Dr. Farhat Leal Albumin/Globulin [Mass ratio] 0.9 {ratio} Normal [facility] Comment on above: Performed By: #### C MP ####[facility] Liaoxdnohh9877 [place] [address]Dr. Farhat Elvis ALP [Catalytic activity/Vol] 53 U/L Normal 46-116 [facility] Comment on above: Performed By: #### C MP ####[facility] Bbhcdbgudd56[address] [place], [place] [address]Dr. Farhat Elvis ALT [Catalytic activity/Vol] 17 U/L Normal 16-63 [facility] Comment on above: Performed By: #### C MP ####[facility] Wctizjygrt8940[address] [place], [place] [address]Dr. Farhat Elvis Anion gap [Moles/Vol] 10.0 mmol/L Normal [facility] Comment on above: Performed By: #### C MP ####[facility] Ekakekrsnw077[address] [place], [place] [address]Dr. Farhat Elvis AST [Catalytic activity/Vol] 19 U/L Normal 15-37 [facility] Comment on above: Performed By: #### C MP ####[facility] Sgayrmswdd3510[address] [place], [place] [address]Dr. Farhat Elvis Bilirubin [Mass/Vol] 0.5 mg/dL Normal 0.2-1.0 [facility] Comment on above: Performed By: #### C MP ####[facility] Byfqamufro314[address] [place], [place] [address]Dr. Farhat Elvis Calcium [Mass/Vol] 8.4 mg/dL Critically low 8.5-10.1 [facility] Comment on above: Performed By: #### C MP ####[facility] Fycdkaopvw569[address] [place], [place] [address]Dr. Farhat Leal Chloride [Moles/Vol] 108 mmol/L Critically high 98-107 [facility] Comment on above: Performed By: #### C MP ####[facility] Ztywmzsqri149[address] [place], [place] [address]Dr. Farhat Leal CO2 [Moles/Vol] 26.9 mmol/L Normal 21.0-32.0 [facility] Comment on above: Performed By: #### C MP ####[facility] Ktsvmojfgc024[address] [place], [place] [address]Dr. Farhat Leal Creatinine [Mass/Vol] 1.20 mg/dL Normal 0.70-1.30 [facility] Comment on above: Performed By: #### C MP ####[facility] Djmrfdypud6780 [place] [address]Dr. Farhat Elvis EGFR-AF PORTUGUESE >60 Normal >=60 [facility] Comment on above: Performed By: #### C MP ####[facility] Uzngmzjacv8798 [place] [address]Dr. Farhat Leal EGFR-NON AF PORTUGUESE 59 mL/min/1.73m2 Critically low >=60 [facility] Comment on above: Performed By: #### C MP ####[facility] Sjysypoaqd2212[address] [place], [place] [address]Dr. Farhat Leal Globulin (S) [Mass/Vol] 3.0 g/dL Normal [facility] Comment on above: Performed By: #### C MP ####[facility] Qhsnecgusc9316[address] [place], [place] [address]Dr. Farhat Leal Glucose [Mass/Vol] 213 mg/dL Critically high 74-106 [facility] Comment on above: Performed By: #### C MP ####[facility] Pqbnnvowsk423[address] [place], [place] [address]Dr. Farhat Leal Potassium [Moles/Vol] 3.9 mmol/L Normal 3.5-5.1 [facility] Comment on above: Performed By: #### C MP ####[facility] Yvqpfczsnw2560 [place] [address]Dr. Farhat Leal Protein [Mass/Vol] 5.6 g/dL Critically low 6.4-8.2 [facility] Comment on above: Performed By: #### C MP ####[facility] Bgokpitbky5591 [place] [address]Dr. Farhat Leal Sodium [Moles/Vol] 141 mmol/L Normal 136-145 [facility] Comment on above: Performed By: #### C MP ####[facility] Rjnigrbdun5665 [place] [address]Dr. Farhat Leal Urea nitrogen [Mass/Vol] 61.0 mg/dL Critically high 7.0-18.0 [facility] Comment on above: Performed By: #### C MP ####[facility] Qdjciiqdff5516[address] [place], [place] [address]Dr. Farhat Leal Urea nitrogen/Creatinine [Mass ratio] 50.8 mg/mg Normal [facility] Comment on above: Performed By: #### C MP ####[facility] Qugzfdssxf050[address] [place], [place] [address]Dr. Farhat Leal FK506 (TACROLIMUS) WHOLE BLO ODon 04-27-2022 Tacrolimus (FK506), Blood 16.5 ng/mL Normal 2.0-20.0 [facility] Comment on above: Result Comment: Trou gh (immediately following transplant) 15.0 . Trough (steady state, 2 weeks or more after transplant): 3.0 - 8.0 . Performed by LC-MS/MS technology. Performed By: #### F K506T ####[facility] Kspqkhsiyh936[address] [place], [place] [address]Dr. Farhat Leal CBC AUTO DIFFon 04-24-2022 BASO # 0.0 103/ul Normal 0.0-0.1 [facility] Comment on above: Performed By: #### C BC ####[facility] Myarkvddlm8701[address] [place], [place] [address]Dr. Farhat Elvis Basophils/100 WBC (Bld) 0.5 % Normal 0.2-2.0 [facility] Comment on above: Performed By: #### C BC ####[facility] Awkahaslwv7784[address] [place], [place] [address]Dr. Farhat Elvis EO # 0.2 103/ul Normal 0.0-0.7 [facility] Comment on above: Performed By: #### C BC ####[facility] Htdcihvmhk5728[address] [place], [place] [address]Dr. Madelynlorri Leal Eosinophils/100 WBC (Bld) 3.1 % Normal 0.9-7.0 [facility] Comment on above: Performed By: #### C BC ####[facility] Czfpiuaoai6139[address] [place], [place] [address]Dr. Farhat Leal Erythrocyte distribution width (RBC) [Ratio] 16.3 % Critically high 11.0-15.0 [facility] Comment on above: Performed By: #### C BC ####[facility] Jvjqpdkyoz9464 [place] [address]Dr. Farhat Leal Hematocrit (Bld) [Volume fraction] 34.0 % Critically low 42.0-54.0 [facility] Comment on above: Performed By: #### C BC ####[facility] Cdsvjcvxei6847 [place] [address]Dr. Farhat Leal Hemoglobin (Bld) [Mass/Vol] 11.6 g/dL Critically low 14.0-18.0 [facility] Comment on above: Performed By: #### C BC ####[facility] Iopyelzhln320[address] [place], [place] [address]Dr. Farhat Leal IG # 0.02 10e3/ul Normal 0.00-0.03 [facility] Comment on above: Performed By: #### C BC ####[facility] Jyplinbooa701[address] [place], [place] [address]Dr. Farhat Leal IG % 0.4 % Normal 0.0-0.5 [facility] Comment on above: Performed By: #### C BC ####[facility] Ewrqfqedmp879[address] [place], [place] [address]Dr. Farhat Elvis LYMPH # 2.2 103/ul Normal 1.2-3.8 [facility] Comment on above: Performed By: #### C BC ####[facility] Fzggoahlgy379[address] [place], [place] [address]Dr. Farhat Elvis Lymphocytes/100 WBC (Bld) 38.8 % Normal 20.5-60.0 [facility] Comment on above: Performed By: #### C BC ####[facility] Iznjdgahwp8595[address] [place], [place] [address]Dr. Madelynlorri Leal MANUAL DIFF REQ NO Normal [facility] Comment on above: Performed By: #### C BC ####[facility] Pigomhumat556[address] [place], [place] [address]Dr. Yilorri Leal MCH (RBC) [Entitic mass] 30.1 pg Normal 25.9-34.0 [facility] Comment on above: Performed By: #### C BC ####[facility] Erjxxlcpbi9162 [place] [address]Dr. Farhat Leal MCHC (RBC) [Mass/Vol] 34.1 g/dL Normal 29.9-35.2 [facility] Comment on above: Performed By: #### C BC ####[facility] Hdztvziyyp079[address] [place], [place] [address]Dr. Farhta Elvis MCV (RBC) [Entitic vol] 88.1 fL Normal 80.0-94.0 [facility] Comment on above: Performed By: #### C BC ####[facility] Oqmijcprnl24[address] [place], [place] [address]Dr. Farhat Leal MONO # 0.6 103/ul Normal 0.3-0.8 [facility] Comment on above: Performed By: #### C BC ####[facility] Eyzynvoqgl2212[address] [place], [place] [address]Dr. Madelynlorri Leal Monocytes/100 WBC (Bld) 10.8 % Normal 1.7-12.0 [facility] Comment on above: Performed By: #### C BC ####[facility] Pswwhxovbz208[address] [place], [place] [address]Dr. Farhat Leal NEUT # 2.6 103/ul Normal 1.4-6.5 [facility] Comment on above: Performed By: #### C BC ####[facility] Inawlhqlqi770[address] [place], [place] [address]Dr. Madelynlorri Leal Neutrophils/100 WBC (Bld) 46.4 % Normal 43.0-75.0 [facility] Comment on above: Performed By: #### C BC ####[facility] Sjvjaoyinc86[address] [place], [place] [address]Dr. Farhat Elvis Platelet mean volume (Bld) [Entitic vol] 10.9 fL Normal 9.5-13.5 [facility] Comment on above: Performed By: #### C BC ####[facility] Erbticwvkp65[address] [place] [id number]. Farhat Leal PLT 159 103/ul Normal 150-450 [facility] Comment on above: Performed By: #### C BC ####[facility] Jlfiohxcfw7978 [place] [address]Dr. Farhat Leal RBC 3.86 106/ul Critically low 4.70-6.10 [facility] Comment on above: Performed By: #### C BC ####[facility] Biqamdqobo180[address] [place], [place] [address]Dr. Farhat Leal WBC 5.6 103/ul Normal 4.0-11.0 [facility] Comment on above: Performed By: #### C BC ####[facility] Vnjoxzerof38[address] [place], [place] [address]Dr. Farhat Elvis PROTIMEon 04-24-2022 INR Coag (PPP) [Relative time] 3.23 {INR} Normal [facility] Comment on above: Performed By: #### P T ####[facility] Ejjkpl[address] [place], [place] [address]Dr. Farhat Leal INR GUIDELINES SEE BELOW Normal [facility] Comment on above: Result Comment: MALINA RED INR: 2.0 - 3.0 CONDITIONS NOT LISTED BELOW 2.5 - 3.5 FOR PROSTHETIC HEART VALVE REPLACEMENT 2.5 - 3.5 RECURRENT THROMBOSIS Performed By: #### P T ####[facility] Oufdxedyur[address] [place], [place] [address]Dr. Farhat Leal PT Coag (PPP) [Time] 32.0 s Critically high 9.0-11.6 [facility] Comment on above: Performed By: #### P T ####[facility] Isinqgitme[address] [place], [place] [address]Dr. Farhat Elvis FK506 (TACROLIMUS) WHOLE BLO ODon 04-20-2022 Tacrolimus (FK506), Blood 13.9 ng/mL Normal 2.0-20.0 [facility] Comment on above: Result Comment: Trou gh (immediately following transplant) 15.0 . Trough (steady state, 2 weeks or more after transplant): 3.0 - 8.0 . Performed by LC-MS/MS technology. Performed By: #### F K506T ####[facility] [address] [place] [address]Dr. Farhat Leal CBC AUTO DIFFon 04-17-2022 BASO # 0.0 103/ul Normal 0.0-0.1 [facility] Comment on above: Performed By: #### C BC ####[facility] Atafvnefar[address] [place], [place] [address]Dr. Farhat Leal Basophils/100 WBC (Bld) 0.4 % Normal 0.2-2.0 [facility] Comment on above: Performed By: #### C BC ####[facility] Wndmzxbdcu[address] [place], [place] [address]Dr. Farhat Leal EO # 0.2 103/ul Normal 0.0-0.7 [facility] Comment on above: Performed By: #### C BC ####[facility] Ginfkyfrcb[address] [place], [place] [address]Dr. Farhat Leal Eosinophils/100 WBC (Bld) 2.8 % Normal 0.9-7.0 [facility] Comment on above: Performed By: #### C BC ####[facility] Wawsaseutf[address] [place], [place] [address]Dr. Farhat Leal Erythrocyte distribution width (RBC) [Ratio] 16.1 % Critically high 11.0-15.0 [facility] Comment on above: Performed By: #### C BC ####[facility] Yzfksfuwga[address] [place], [place] [address]Dr. Farhat Leal Hematocrit (Bld) [Volume fraction] 35.7 % Critically low 42.0-54.0 [facility] Comment on above: Performed By: #### C BC ####[facility] Nxxlyfobxk[address] [place], [place] [address]Dr. Farhat Leal Hemoglobin (Bld) [Mass/Vol] 12.2 g/dL Critically low 14.0-18.0 [facility] Comment on above: Performed By: #### C BC ####[facility] Eijtuxiujx[address] [place], [place] [address]Dr. Madelynlorri Leal IG # 0.03 10e3/ul Normal 0.00-0.03 [facility] Comment on above: Performed By: #### C BC ####[facility] Tsoxodirmi[address] [place] [address]Dr. Farhat Leal IG % 0.4 % Normal 0.0-0.5 [facility] Comment on above: Performed By: #### C BC ####[facility] Megpvdzifp[address] [place] [address]DrSkylar Farhat Leal LYMPH # 2.4 103/ul Normal 1.2-3.8 [facility] Comment on above: Performed By: #### C BC ####[facility] Hvrcrnkigu74[address] [place], [place] [address]DrSkylar Farhat Elvis Lymphocytes/100 WBC (Bld) 36.1 % Normal 20.5-60.0 [facility] Comment on above: Performed By: #### C BC ####[facility] Ahzcvkikyn[address] [place], [place] [address]DrSkylar Farhat Elvis MANUAL DIFF REQ NO Normal [facility] Comment on above: Performed By: #### C BC ####[facility] Fybnyvkckc8[address] [place], [place] [address]Dr. Farhat Leal MCH (RBC) [Entitic mass] 30.3 pg Normal 25.9-34.0 [facility] Comment on above: Performed By: #### C BC ####[facility] Gmzjyvypad[address] [place], [place] [address]Dr. Farhat Leal MCHC (RBC) [Mass/Vol] 34.2 g/dL Normal 29.9-35.2 [facility] Comment on above: Performed By: #### C BC ####[facility] Smnpdvsmop[address] [place], [place] [address]DrSkylar Farhat Elvis MCV (RBC) [Entitic vol] 88.6 fL Normal 80.0-94.0 [facility] Comment on above: Performed By: #### C BC ####[facility] Tdqblcrwbg[address] [place], [place] [address]DrSkylar Farhat Elvis MONO # 0.7 103/ul Normal 0.3-0.8 [facility] Comment on above: Performed By: #### C BC ####[facility] [address]yp[address]uc[address] [place] [address]Dr. Farhat Leal Monocytes/100 WBC (Bld) 10.1 % Normal 1.7-12.0 [facility] Comment on above: Performed By: #### C BC ####[facility] Ytahztyiga[address] [place] [id number]. Farhat Leal NEUT # 3.4 103/ul Normal 1.4-6.5 [facility] Comment on above: Performed By: #### C BC ####[facility] Twsnnekqkl4[address] [place] [address]Dr. Farhat Leal Neutrophils/100 WBC (Bld) 50.2 % Normal 43.0-75.0 [facility] Comment on above: Performed By: #### C BC ####[facility] Izvashzsip[address] [place] [address]Dr. Farhat Leal Platelet mean volume (Bld) [Entitic vol] 11.8 fL Normal 9.5-13.5 [facility] Comment on above: Performed By: #### C BC ####[facility] Jotqcuqkyx4[address] [place] [address]Dr. Farhat Leal PLT 193 103/ul Normal 150-450 [facility] Comment on above: Performed By: #### C BC ####[facility] Nejpasuzey[address] [place] [address]Dr. Farhat Leal RBC 4.03 106/ul Critically low 4.70-6.10 [facility] Comment on above: Performed By: #### C BC ####[facility] Mlr[address]hbwvm33[address] [place] [id number]. Farhat Leal WBC 6.8 103/ul Normal 4.0-11.0 [facility] Comment on above: Performed By: #### C BC ####[facility] G[address]zbowrbr[address] [place] [address]DrSkylar Leal PROF 14(COMP METB)on 023 Albumin [Mass/Vol] 2.9 g/dL Critically low 3.4-5.0 [facility] Comment on above: Performed By: #### C MP ####[facility] Nqmyctrcmc6566 [place] [address]Dr. Farhat Leal Albumin/Globulin [Mass ratio] 0.9 {ratio} Normal [facility] Comment on above: Performed By: #### C MP ####[facility] Ymjprdnpdm69[address] [place] [address]Dr. Farhat Elvis ALP [Catalytic activity/Vol] 67 U/L Normal 46-116 [facility] Comment on above: Performed By: #### C MP ####[facility] Sdvkyzgzid6575 [place] [address]Dr. Farhat Elvis ALT [Catalytic activity/Vol] 15 U/L Critically low 16-63 [facility] Comment on above: Performed By: #### C MP ####[facility] Zazlwvfbqa[address] [place], [place] [address]Dr. Farhat Elvis Anion gap [Moles/Vol] 10.8 mmol/L Normal [facility] Comment on above: Performed By: #### C MP ####[facility] Tanitenxht[address] [place], [place] [address]Dr. Farhat Elvis AST [Catalytic activity/Vol] 23 U/L Normal 15-37 [facility] Comment on above: Performed By: #### C MP ####[facility] Kjjmqzeseq[address] [place], [place] [address]Dr. Farhat Elvis Bilirubin [Mass/Vol] 0.6 mg/dL Normal 0.2-1.0 [facility] Comment on above: Performed By: #### C MP ####[facility] Jejzbtxgxr[address] [place], [place] [address]Dr. Farhat Elvis Calcium [Mass/Vol] 8.7 mg/dL Normal 8.5-10.1 [facility] Comment on above: Performed By: #### C MP ####[facility] Byichpechy[address] [place], [place] [address]Dr. Farhat Leal Chloride [Moles/Vol] 105 mmol/L Normal 98-107 [facility] Comment on above: Performed By: #### C MP ####[facility] Xkrcscngaw22[address] [place] [id number]. Farhat Leal CO2 [Moles/Vol] 29.5 mmol/L Normal 21.0-32.0 [facility] Comment on above: Performed By: #### C MP ####[facility] Cinfladzya4[address] [place] [id number]. Farhat Leal Creatinine [Mass/Vol] 1.37 mg/dL Critically high 0.70-1.30 [facility] Comment on above: Performed By: #### C MP ####[facility] Zvpdllxoaf67[address] [place] [id number]. Farhat Leal EGFR-AF PORTUGUESE >60 Normal >=60 [facility] Comment on above: Performed By: #### C MP ####[facility] Jzcrwbagxm58[address] [place] [id number]. Farhat Elvis EGFR-NON AF [place]E 50 mL/min/1.73m2 Critically low >=60 [facility] Comment on above: Performed By: #### C MP ####[facility] Cbrttzfrpf7[address] [place] [id number]. Farhat Elvis Globulin (S) [Mass/Vol] 3.1 g/dL Normal [facility] Comment on above: Performed By: #### C MP ####[facility] Shyxgvouyp8[address] [place] [id number]. Farhat Elvis Glucose [Mass/Vol] 203 mg/dL Critically high 74-106 [facility] Comment on above: Performed By: #### C MP ####[facility] Ajqgnbbonj1915 [place] [id number]. Farhat Leal Potassium [Moles/Vol] 4.3 mmol/L Normal 3.5-5.1 [facility] Comment on above: Performed By: #### C MP ####[facility] Kmnvlysfhu18[address] [place] [id number]. Farhat Elvis Protein [Mass/Vol] 6.0 g/dL Critically low 6.4-8.2 [facility] Comment on above: Performed By: #### C MP ####[facility] Odgkuqltkr80[address] [place] [address]Dr. Farhat Leal Sodium [Moles/Vol] 141 mmol/L Normal 136-145 [facility] Comment on above: Performed By: #### C MP ####[facility] Usytktuugc34[address] [place] [address]Dr. Farhat Leal Urea nitrogen [Mass/Vol] 65.0 mg/dL Critically high 7.0-18.0 [facility] Comment on above: Performed By: #### C MP ####[facility] Sgmvttmoqy55[address] [place] [address]Dr. Farhat Leal Urea nitrogen/Creatinine [Mass ratio] 47.4 mg/mg Normal [facility] Comment on above: Performed By: #### C MP ####[facility] Hqfrhawwrg75[address] [place] [address]Dr. Farhat Leal PROTIMEon 04-15-2022 INR Coag (PPP) [Relative time] 3.88 {INR} Normal [facility] Comment on above: Performed By: #### P T ####[facility] Dojlzbdedh[address] [place] [address]Dr. Farhat Leal INR GUIDELINES SEE BELOW Normal [facility] Comment on above: Result Comment: MALINA RED INR: 2.0 - 3.0 CONDITIONS NOT LISTED BELOW 2.5 - 3.5 FOR PROSTHETIC HEART VALVE REPLACEMENT 2.5 - 3.5 RECURRENT THROMBOSIS Performed By: #### P T ####[facility] Yuz[address]zcnez[address] [place] [address]Dr. Farhat Leal PT Coag (PPP) [Time] 38.1 s Critically high 9.0-11.6 [facility] Comment on above: Performed By: #### P T ####[facility] Kxryeg[address]zj[address] [place], [place] [address]Dr. Farhat Leal Glucose Glucometer (BldC) [M ass/Vol]Ordered By: Sadia Aguilar on 04-14-2022 Glucose [Mass/Vol] 162 mg/dL [facility] Comment on above: Random Glucose Refer ence Range is dependent on time and content of last meal. Glucose of more than 200 mg/dL in a nonstressed, ambulatory subject supports the diagnosis of Diabetes Mellitus. Glucose Poct Glucometerson 0 04-14-2022 Commemt1 Glu2: Cleaned Meter Normal [facility] Comment on above: Result Comment: PERF ORMED BY: [facility] [place] [address] PATHOLOGIST BACON STRINGER JOSE F ELLIOTT M.D. Performed By: #### G LULS #### Point of Care testing , Glucose [Mass/Vol] 162 mg/dL Normal [facility] Comment on above: Result Comment: [place] om Glucose Reference Range is dependent on time and content of last meal. Glucose of more than 200 mg/dL in a nonstressed, ambulatory subject supports the diagnosis of Diabetes Mellitus. Performed By: #### G LULS #### Point of Care testing , No Panel InformationOrdered By: Sadia Aguilar on 04-14-2022 Bedside Glucose Comment Glu2: cleaned meter [facility] MAGNESIUMon 04-13-2022 Magnesium [Mass/Vol] 1.7 mg/dL Critically low 1.8-2.4 [facility] Comment on above: Performed By: #### M HENRI Manzo ####[facility] Smroomstdk[address] [place] [address]Dr. Farhat Leal PHOSPHORUSon 04-13-2022 Phosphate [Mass/Vol] 4.8 mg/dL Critically high 2.6-4.7 [facility] Comment on above: Performed By: #### M HENRI Manzo ####[facility] Divtwozsrq[address] [place] [id number]. Farhat Leal PROTIMEon 04-13-2022 INR Coag (PPP) [Relative time] 3.16 {INR} Normal [facility] Comment on above: Performed By: #### P T ####[facility] T[address]af[address]qir[address] [place] [address]Dr. Farhat Leal INR GUIDELINES SEE BELOW Normal [facility] Comment on above: Result Comment: MALINA RED INR: 2.0 - 3.0 CONDITIONS NOT LISTED BELOW 2.5 - 3.5 FOR PROSTHETIC HEART VALVE REPLACEMENT 2.5 - 3.5 RECURRENT THROMBOSIS Performed By: #### P T ####[facility] Xjbvzyincn7[address] [place] [address]Dr. Farhat Leal PT Coag (PPP) [Time] 31.4 s Critically high 9.0-11.6 [facility] Comment on above: Performed By: #### P T ####[facility] Vesmzoalzi[address]854 [place] [address]Dr. Farhat Leal MAGNESIUMon 03-11-2022 Magnesium [Mass/Vol] 1.6 mg/dL Critically low 1.8-2.4 [facility] Comment on above: Performed By: #### M HENRI Manzo ####[facility] Xgpcyaoiga[address] [place], [place] [address]Dr. Farhat Leal PHOSPHORUSon 03-11-2022 Phosphate [Mass/Vol] 5.3 mg/dL Critically high 2.6-4.7 [facility] Comment on above: Performed By: #### M HENRI Manzo ####[facility] Rwbweaoosl[address] [place], [place] [address]Dr. 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 Patient on mycophenolate mofetil , cellcept and prednisone Mixed hyperlipidemia due to type 2 diabetes mellitus ([facility]) 11/29/2021 Osteomyelitis ([facility]) 11/29/2021 Paroxysmal atrial fibrillation ([facility]) Renal transplant, status post SA node dysfunction ([facility]) s/p pacemaker Type 2 diabetes mellitus with diabetic neuropathy, with long-term current use of insulin ([facility]) 02/24/2002 PAST SURGICAL HISTORY Procedure Laterality Date [...] by mouth daily with lunch. Magic Cup [place] with lunch aspirin, enteric coated (ASPIRIN, ENTERIC COATED) 81 mg EC tablet Take 1 tablet by (more content not included)... [facility] 02-25-2022 INR Coag (PPP) [Relative time] 1.31 {INR} Normal [facility] Comment on above: Performed By: #### P T ####[facility] Uaex[address]qdws[address] [place] [address]DrSkylar Leal INR GUIDELINES SEE BELOW Normal [facility] Comment on above: Result Comment: MALINA RED INR: 2.0 - 3.0 CONDITIONS NOT LISTED BELOW 2.5 - 3.5 FOR PROSTHETIC HEART VALVE REPLACEMENT 2.5 - 3.5 RECURRENT THROMBOSIS Performed By: #### P T ####[facility] [address]qsz[address]ft[address] [place] [address]DrSkylar Leal PT Coag (PPP) [Time] 13.7 s Critically high 9.0-11.6 [facility] Comment on above: Performed By: #### P T ####[facility] Rrbtuaddsn[address] [place] [address]DrSkylar Leal CNPRosalie 02-19-2022 CNPN Telephone (TXCTGL) ALEX ALMONTE ([id number]) 1945 M TRN Date Time Provider Department 02/19/22 AUGUSTA MEDRANO TXCTGL During your visit today, we recorded the following information about you: Auugsta Medrano RN 02/19/2022 11:16 AM Signed Alex Almonte's nursing facility, [facility], called regarding elevated tacrolimus level (23.9). [...] by mouth daily with lunch. 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/2002 DIABETES UNCOMPL ADULT-UNCONTRLLED [[id number]] 02/24/2002 KIDNEY TRANSPLANT STATUS [Z94.0] 09/07/2003 PROPHYLACTIC IMMUNOTHERAPY [Z29.8] 07/30/2006 FPC STEROIDS [[id number]] 07/30/2006 VITAMIN D DEFICIENCY NOS [E55.9] 09/07/2008 [...] diabetes mellitus with diabetic peripher*11/29/2021 Atherosclerosis of [place] artery of extremity w*11/29/2021 Malnutrition of moderate degree (HCC) [E44.0] 12/01/2021 Dermatitis associated with moisture [L30.8] 12/04/2021 Encounter Status:Closed by AUGUSTA MEDRANO on 02/19/22 [facility] Sonya 02-18-2022 CNPN Telephone (PODCCP) ALEX ALMONTE ([id number]) 1945 [facility] Date Time Provider Department 02/18/22 DEVON MOREIRA PODCCP During your visit today, we recorded the following information about you: Yumikoev Denise 02/18/2022 3:16 PM Signed Reason for call: Mr. Almonte would like to request a sooner appointment with Dr. Peterson than 04/13/2022. Contact Name (if not the patient) Alex's nurse Home and cell number(Ask for Alex's nurse) [phone] Diagnosis 4 mo f/u wound check Best [...] by mouth daily with lunch. 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 Normal [facility] CNOVon 02-05-2022 CNOV Office Visit (TXCTGL ) SUZYALEX Love ([id number]) 1945 M TRN Date Time Provider Department 02/05/22 8:20 AM KIDNEY TXP [facility]INIC TXCTGL During your visit today, we recorded the following information about you: Temperature Pulse Blood pressure 96.7 degrees 79/minute 72/42 Asia Pike MD 02/05/2022 9:38 AM Signed Pending Sale To [facility] Follow up Portions of this note [...] snacks patient declined. Indra scale at [facility]: 166.2 lbs per patient. Bed sore on coccyx causing discomfort. Being changed regularly at SNF- reported to be smaller around but still as deep. Patient not very up to date with medications. Patient brought paperwork from [employer] with all medications being received. Patient unsure if they have been drawing labs regularly. Last Tac from 01/19: 12.9 and K 5.9. In need of current labs. Lab orders will be sent with patient and follows as below: Kidney and Pancreas Transplant Standing Lab Orders [address] [place], [place] [address] February 05, 2022 Alex Almonte 1945 [id number] STANDARD TESTING: Diagnosis Codes: Z94.0 Kidney Transplant [...] AT YOUR LABORATORY FACILITY AND FAX TO [phone]. PLEASE CALL [phone]. Provider: Dr. Pike Current Outpatient Medications Medication [...] Take 237 (more content not included)... Normal [facility] PROTEIN CREATININE RATIOon 1 04-08-2021 Protein/Creatinine (U) [Mass ratio] 0.10 mg/mg <0.15 mg/mg [facility] PROTIMEon 02-05-2022 INR Coag (PPP) [Relative time] 2.90 {INR} Normal [facility] Comment on above: Performed By: #### P T ####[facility] [address]vo[address] [place] [id number]. Farhat Leal INR GUIDELINES SEE BELOW Normal [facility] Comment on above: Result Comment: MALINA RED INR: 2.0 - 3.0 CONDITIONS NOT LISTED BELOW 2.5 - 3.5 FOR PROSTHETIC HEART VALVE REPLACEMENT 2.5 - 3.5 RECURRENT THROMBOSIS Performed By: #### P T ####[facility] [address]re[address] [place] [id number]. Farhat Leal PT Coag (PPP) [Time] 29.2 s Critically high 9.0-11.6 [facility] Comment on above: Performed By: #### P T ####[facility] F[address]ycrgfx[address] [place] [address]Dr. Farhat Leal Prot/Creat Uron 02-05-2022 Protein/Creatinine (U) [Mass ratio] 0.10 mg/mg Normal <0.15 [facility] Comment on above: Order Comment: Speci men Type: URINE SPECIMENOrdering Facility: [facility] Address: [address] [place] [address] Result Comment: Adul t Proteinuria Categories: <0.15 mg/mg is considered normal to mildly increased 0.15 - 0.50 mg/mg is considered moderately increased >0.50 mg/mg is considered severely increased KDIGO. (2013). KDIGO 2012 Clinical Practice Guideline for the Evaluation and Management of Chronic Kidney Disease. Official Journal of the International Society of Nephrology, 3(1), 1-150. Performed By: #### 2 890-2 ####[facility] LABCLIA [id number] [address] STATES OF [facility] Protein/Creatinine (U) [Mass ratio]on 02-05-2022 Creatinine (U) [Mass/Vol] 86.9 mg/dL 20.0 - 300.0 mg/dL [facility] Protein (U) [Mass/Vol] 9 mg/dL 0 - 20 mg/dL [facility] Creatinine (U) [Mass/Vol] 86.9 mg/dL Normal 20.0-300.0 [facility] Comment on above: Order Comment: Speci men Type: URINE SPECIMENOrdering Facility: [facility] Address: [address] [place] [address] Performed By: #### 2 890-2 ####[facility] LABCLIA [id number] [place] [address] [place] Protein (U) [Mass/Vol] 9 mg/dL Normal 0-20 [facility] Comment on above: Order Comment: Speci men Type: URINE SPECIMENOrdering Facility: [facility] Address: [address] [place] [address] Performed By: #### 2 890-2 ####[facility] LABCLIA [id number] [place] [address] [place] URINALYSIS, DIPSTICK ONLYon 02-05-2022 Bilirubin Ql (U) Negative Normal Negative [facility] Comment on above: Order Comment: Speci men Type: URINE SPECIMEN [facility] Facility[facility] Address: [address] [place], [place] [address] Performed By: #### U A #### [facility] CLIA [id number] [facility] [place] [address] [place] Clarity (Unsp spec) Clear Normal Clear [facility] Comment on above: Order Comment: Speci men Type: URINE SPECIMEN [facility] Facility[facility] Address: [address] [place], [place] [address] Performed By: #### U A #### [facility] CLIA [id number] [address] [place] [address] [place] Color (U) Yellow Normal Yellow [facility] Comment on above: Order Comment: Speci men Type: URINE SPECIMEN [facility] Address: [address] [place], [place] [address] Performed By: #### U A #### [facility] CLIA [id number] [address] [place] [address] [place] Glucose Test strip (U) [Mass/Vol] 3+ Abnormal Trace, Negative [facility] Comment on above: Order Comment: Speci men Type: URINE SPECIMEN [facility] Facility[facility] Address: [address] [place] [address] Performed By: #### U A #### [facility]. [facility] CLIA [id number] [address] [place] [address] [place] Hemoglobin Ql (U) Negative Normal Negative, Trace [facility] Comment on above: Order Comment: Speci men Type: URINE SPECIMEN Ordering Facility: [facility] Address: [address] [address] Performed By: #### U A #### [facility] CLIA [id number] [address] [place] [address] [place] Ketones Ql (U) Trace Normal Negative, Trace [facility] Comment on above: Order Comment: Speci men Type: URINE SPECIMEN Ordering Facility: [facility] Address: [address] [place], [place] [id number] Performed By: #### U A #### [facility] CLIA [id number] [address] [place] Leukocyte esterase Test strip Ql (U) Negative Normal Negative, 25 Loraine/mL [facility] Comment on above: Order Comment: Speci men Type: URINE SPECIMEN Ordering Facility: [facility] Address: [address] Performed By: #### U A #### [facility] CLIA [id number] [address] [place] [address] [place] Nitrite Ql (U) Negative Normal Negative [facility] Comment on above: Order Comment: Speci men Type: URINE SPECIMEN Ordering Facility: [facility] Address: [address] Performed By: #### U A #### [facility] CLIA [id number] [address] [place] [address] [place] pH (U) 5.5 [pH] Normal 5.0-8.0 [facility] Comment on above: Order Comment: Speci men Type: URINE SPECIMEN Ordering Facility: [facility] Address: [address] [place] [address] Performed By: #### U A #### [facility] CLIA [id number] [address] [place] [address] [place] Protein (U) [Mass/Vol] Negative Normal Trace , Negative [facility] Comment on above: Order Comment: Speci men Type: URINE SPECIMEN Ordering Facility: [facility] Address: [address] [place] [address] Performed By: #### U A #### [facility] CLIA [id number] [address] [place] [address] [place] Specific gravity (U) [Rel density] 1.014 Normal 1.005-1.030 [facility] Comment on above: Order Comment: Speci men Type: URINE SPECIMEN Ordering Facility: [facility] Address: [address] [place] [address] Performed By: #### U A #### [facility] CLIA [id number] [address] [place] [address] [place] Urobilinogen Ql (U) 1+ Abnormal Negative [facility] Comment on above: Order Comment: Speci men Type: URINE SPECIMEN Ordering Facility: [facility] Address: [address] [place] [address] Performed By: #### U A #### [facility] CLIA [id number] [address] [place] [address] [place] Bilirubin Ql (U) Negative Negative [facility] Clarity (Unsp spec) Clear Clear [facility] Color (U) Yellow Yellow [facility] Glucose Test strip (U) [Mass/Vol] 3+ Abnormal Trace, Negative [facility] Hemoglobin Ql (U) Negative Negative, Trace [facility] Ketones Ql (U) Trace Negative, Trace [facility] Leukocyte esterase Test strip Ql (U) Negative Negative, 25 Loraine/mL [facility] Nitrite Ql (U) Negative Negative [facility] pH (U) 5.5 [pH] 5.0 - 8.0 [facility] Protein (U) [Mass/Vol] Negative Trace , Negative [facility] Specific gravity (U) [Rel density] 1.014 1.005 - 1.030 [facility] Urobilinogen Ql (U) 1+ Abnormal Negative [facility] FK506 (TACROLIMUS) WHOLE BLO ODon 01-29-2022 Tacrolimus (FK506), Blood 11.1 ng/mL Normal 2.0-20.0 [facility] Comment on above: Result Comment: Trou gh (immediately following transplant) 15.0 . Trough (steady state, 2 weeks or more after transplant): 3.0 - 8.0 . Performed by LC-MS/MS technology. Performed By: #### F K506T ####[facility] [address] [place], [place] [address]DrSkylar Leal PHOSPHORUSon 01-26-2022 Phosphate [Mass/Vol] 4.1 mg/dL Normal 2.6-4.7 [facility] Comment on above: Performed By: #### C CARA PHOS ####[facility] Utjaspizq[address] [place], [place] [address]DrSkylar Leal PROF 14(COMP METB)on 022 Albumin [Mass/Vol] 2.1 g/dL Critically low 3.4-5.0 [facility] Comment on above: Performed By: #### C CARA PHOS ####[facility] Tph[address]mey[address] [place], [place] [address]DrSkylar Leal Albumin/Globulin [Mass ratio] 0.6 {ratio} Normal [facility] Comment on above: Performed By: #### C CARA PHOS ####[facility] Hwvtmepetg[address] [place], [place] [address]DrSkylar Leal ALP [Catalytic activity/Vol] 89 U/L Normal 46-116 [facility] Comment on above: Performed By: #### C CARA, PHOS ####[facility] Sfaciiodxn[address] [place], [place] [address]Dr. Farhat Leal ALT [Catalytic activity/Vol] 27 U/L Normal 16-63 [facility] Comment on above: Performed By: #### C CARA, PHOS ####[facility] Aojnoxtslq[address] [place], [place] [address]Dr. Farhat Leal Anion gap [Moles/Vol] 12.3 mmol/L Normal [facility] Comment on above: Performed By: #### C ACRA, PHOS ####[facility] Eyaweybfxo[address] [place], [place] [address]Dr. Farhat Leal AST [Catalytic activity/Vol] 53 U/L Critically high 15-37 [facility] Comment on above: Performed By: #### C CARA, PHOS ####[facility] Vzgelzgbsd[address] [place], [place] [address]Dr. Farhat Leal Bilirubin [Mass/Vol] 0.6 mg/dL Normal 0.2-1.0 [facility] Comment on above: Performed By: #### C CARA, PHOS ####[facility] Nvrwciplnm[address] [place], [place] [address]Dr. Farhat Leal Calcium [Mass/Vol] 8.0 mg/dL Critically low 8.5-10.1 [facility] Comment on above: Performed By: #### C CARA, PHOS ####[facility] Ewnrzaqejd[address] [place], [place] [address]Dr. Farhat Leal Chloride [Moles/Vol] 97 mmol/L Critically low 98-107 [facility] Comment on above: Performed By: #### C CARA, PHOS ####[facility] Ihcqkuqdkr[address] [place], [place] [address]Dr. Farhat Leal CO2 [Moles/Vol] 26.6 mmol/L Normal 21.0-32.0 [facility] Comment on above: Performed By: #### C CARA, PHOS ####[facility] [address] [address]Dr. Farhat Leal Creatinine [Mass/Vol] 1.03 mg/dL Normal 0.70-1.30 [facility] Comment on above: Performed By: #### C CARA, PHOS ####[facility] Fjonascpus[address] [place], [place] [address]Dr. Farhat Leal EGFR-AF PORTUGUESE >60 Normal >=60 [facility] Comment on above: Performed By: #### C CARA, PHOS ####[facility] Urvkxwmhnz[address] [place], [place] [address]Dr. Farhat Leal EGFR-NON AF PORTUGUESE >60 Normal >=60 [facility] Comment on above: Performed By: #### C CARA, PHOS ####[facility] Kmrybafrde[address] [place], [place] [address]Dr. Farhat Leal Globulin (S) [Mass/Vol] 3.7 g/dL Normal [facility] Comment on above: Performed By: #### C CARA, PHOS ####[facility] Gyynanwboh[address] [place], [place] [address]Dr. Farhat Leal Glucose [Mass/Vol] 287 mg/dL Critically high 74-106 [facility] Comment on above: Performed By: #### C CARA, PHOS ####[facility] Uypwofwobu[address] [place], [place] [address]Dr. Farhat Leal Potassium [Moles/Vol] 3.9 mmol/L Normal 3.5-5.1 [facility] Comment on above: Performed By: #### C CARA, PHOS ####[facility] Lycsc[address]fecb[address] [place], [place] [address]Dr. Farhat Leal Protein [Mass/Vol] 5.8 g/dL Critically low 6.4-8.2 Th [facility] Comment on above: Performed By: #### C CARA, PHOS ####[facility] Mstzh[address]ppq33[address] [place], [place] [address]Dr. Farhat Leal Sodium [Moles/Vol] 132 mmol/L Critically low 136-145 Th [facility] Comment on above: Performed By: #### C MP, PHOS ####[facility] [address] [id number]. Farhat Leal Urea nitrogen [Mass/Vol] 23.0 mg/dL Critically high 7.0-18.0 [facility] Comment on above: Performed By: #### C HENRI MARROQUIN ####[facility] [address] [id number]. Farhat Leal Urea nitrogen/Creatinine [Mass ratio] 22.3 mg/mg Normal [facility] Comment on above: Performed By: #### C HENRI MARROQUIN ####[facility] [address] [id number]. Farhat Leal FK506 (TACROLIMUS) WHOLE BLO ODon 01-21-2022 Tacrolimus (FK506), Blood 12.2 ng/mL Normal 2.0-20.0 [facility] Comment on above: Result Comment: Trou gh (immediately following transplant) 15.0 . Trough (steady state, 2 weeks or more after transplant): 3.0 - 8.0 . Performed by LC-MS/MS technology. Performed By: #### F K506T ####[facility] [address] [place], [place] [address]Dr. Farhat Leal ACID FAST SMEAR AND CXon Acid Fast Culture Negative Normal [facility] Comment on above: Result Comment: No a abdiel fast bacilli isolated after 6 weeks. Performed By: #### A FB ####[facility] Nqajhngmja[address] [place], [place] [address]Dr. Farhat Leal Acid Fast Smear Negative Normal [facility] Comment on above: Performed By: #### A FB ####[facility] V[address]obrhwpkp[address] [place], [place] [address]Dr. Farhat Leal [employer] Specimen Processing Tissue Grinding Normal [facility] Comment on above: Performed By: #### A FB ####[facility] Zve[address]emkyv[address] [place], [place] [address]Dr. Farhat Hassan 01-20-2022 CNPN Telephone (DAVISBatool) ALEX ALMONTE ([id number]) 1945 M TRN Date Time Provider Department 01/20/22 VAN OLIVAREZ During your visit today, we recorded the following information about you: Van Olivarez APRN.CNP 01/20/2022 1:14 PM Signed Labs noted from yesterday. Pt is currently residing at [facility], I spoke with the Nurse, [...] by mouth daily with lunch. 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 Farhat Leal Albumin/Globulin [Mass ratio] 0.5 {ratio} Normal [facility] Comment on above: Performed By: #### C MP ####[facility] [address] [address]DrSkylar Leal ALP [Catalytic activity/Vol] 78 U/L Normal 46-116 [facility] Comment on above: Performed By: #### C MP ####[facility] [address] [id number]. Farhat Leal ALT [Catalytic activity/Vol] 22 U/L Normal 16-63 [facility] Comment on above: Performed By: #### C MP ####[facility] [address] [address]Dr. Farhat Leal Anion gap [Moles/Vol] 8.0 mmol/L Normal [facility] Comment on above: Performed By: #### C MP ####[facility] Wtozdsiyax[address] [place], [place] [address]Dr. Farhat Leal AST [Catalytic activity/Vol] 92 U/L Critically high 15-37 [facility] Comment on above: Performed By: #### C MP ####[facility] Oajgnupbdt[address] [place], [place] [address]Dr. Farhat Leal Bilirubin [Mass/Vol] 0.7 mg/dL Normal 0.2-1.0 [facility] Comment on above: Performed By: #### C MP ####[facility] Srovlarkwb40[address] [place], [place] [address]Dr. Farhat Leal Calcium [Mass/Vol] 7.8 mg/dL Critically low 8.5-10.1 Th e [facility] Comment on above: Performed By: #### C MP ####[facility] Csjmcuznqm[address] [place], [place] [address]Dr. Farhat Leal Chloride [Moles/Vol] 99 mmol/L Normal 98-107 [facility] Comment on above: Performed By: #### C MP ####[facility] Rigpddhvko[address] [place], [place] [address]Dr. Farhat Leal CO2 [Moles/Vol] 30.9 mmol/L Normal 21.0-32.0 [facility] Comment on above: Performed By: #### C MP ####[facility] Xcrjunqqxw[address] [place], [place] [address]Dr. Farhat Leal Creatinine [Mass/Vol] 0.95 mg/dL Normal 0.70-1.30 [facility] Comment on above: Performed By: #### C MP ####[facility] [address] [id number]. Farhat Leal EGFR-AF PORTUGUESE >60 Normal >=60 [facility] Comment on above: Performed By: #### C MP ####[facility] Mtftkehzhn[address] [place], [place] [address]Dr. Farhat Leal EGFR-NON AF PORTUGUESE >60 Normal >=60 [facility] Comment on above: Performed By: #### C MP ####[facility] Nzkgqwbkcp[address] [place], [place] [address]Dr. Farhat Elvis Globulin (S) [Mass/Vol] 3.9 g/dL Normal [facility] Comment on above: Performed By: #### C MP ####[facility] Vuqrasstun[address]66[address] [place], [place] [address]Dr. Farhat Elvis Glucose [Mass/Vol] 124 mg/dL Critically high 74-106 T [facility] Comment on above: Performed By: #### C MP ####[facility] Syrucmvabe[address] [place], [place] [address]Dr. Farhat Elvis Potassium [Moles/Vol] 5.9 mmol/L Critically high 3.5-5.1 [facility] Comment on above: Performed By: #### C MP ####[facility] Txvgkcahns[address] [place], [place] [address]Dr. Farhat Elvis Protein [Mass/Vol] 5.8 g/dL Critically low 6.4-8.2 Th [facility] Comment on above: Performed By: #### C MP ####[facility] Rbzsngbjku30[address] [place], [place] [address]Dr. Farhat Elvis Sodium [Moles/Vol] 132 mmol/L Critically low 136-145 Th [facility] Comment on above: Performed By: #### C MP ####[facility] Jiertvgcbc[address] [place], [place] [address]Dr. Farhat Elvis Urea nitrogen [Mass/Vol] 18.0 mg/dL Normal 7.0-18.0 [facility] Comment on above: Performed By: #### C MP ####[facility] Jjelwnqglg[address] [place], [place] [address]Dr. Madelynlorri Elvis Urea nitrogen/Creatinine [Mass ratio] 18.9 mg/mg Normal [facility] Comment on above: Performed By: #### C MP ####[facility] [address] [place] [id number]. Farhat Leal INR (POC)on 01-12-2022 INR Coag (PPP) [Relative time] 2.6 {INR} High 0.8 - 1.2 [facility] Internal Quality Check Acceptable Cl [facility] ACID FAST SMEAR AND CXon Acid Fast Culture Negative Normal [facility] Comment on above: Result Comment: No a abdiel fast bacilli isolated after 6 weeks. Performed By: #### A FB ####[facility] Xbfuybglvm[address] [place], [place] [address]Dr. Madelynlorri Leal Acid Fast Smear Negative Normal [facility] Comment on above: Performed By: #### A FB ####[facility] Drlquijgrx[address] [place], [place] [address]Dr. Farhat Leal [employer] Specimen Processing Direct Inoculation Normal [facility] Comment on above: Performed By: #### A FB ####[facility] [address]iolx[address] [place] [id number]. Farhat Leal ACID FAST SMEAR AND CXon Acid Fast Culture Negative Normal [facility] Comment on above: Result Comment: No a abdiel fast bacilli isolated after 6 weeks. Performed By: #### A FB ####[facility] Gkafjkeoug[address] [place], [place] [address]Dr. Farhat Leal Acid Fast Smear Negative Normal [facility] Comment on above: Performed By: #### A FB ####[facility] Tqvaxdkmza[address] [place], [place] [address]Dr. Farhat Leal [employer] Specimen Processing Tissue Grinding Normal [facility] Comment on above: Performed By: #### A FB ####[facility] Bntkzmtvxf[address] [place], [place] [address]Dr. Farhat Leal FUNGAL CULTUREon 01-02-2022 Fungus (Mycology) Culture Final report Normal [facility] Comment on above: Performed By: #### C XFUN ####[facility] [address] [address]Dr. Farhat Leal Fungus Stain Final report Normal [facility] Comment on above: Performed By: #### C XFUN ####[facility] Ljdwnjuphp[address] [place], [place] [address]DrSkylar Leal Result 1 Comment Normal [facility] Comment on above: Result Comment: ANNI/ Calcofluor preparation: no fungus observed. Performed By: #### C XFUN ####[facility] Yaxhtvtjlw[address] [place], [place] [address]Dr. Farhat Leal Result Comment: No y east or mold isolated after 4 weeks. FK506 (TACROLIMUS) WHOLE BLO ODon 12-31-2021 Tacrolimus (FK506), Blood 7.7 ng/mL Normal 2.0-20.0 [facility] Comment on above: Result Comment: Trou gh (immediately following transplant) 15.0 . Trough (steady state, 2 weeks or more after transplant): 3.0 - 8.0 . Performed by LC-MS/MS technology. Performed By: #### F K506T ####[facility] Obdqaeljlv[address] [place], [place] [address]Dr. Farhat Leal HEMOGRAM AND PLATELon 2021 Hematocrit (Bld) [Volume fraction] 27.1 % Critically low 42.0-54.0 [facility] Comment on above: Performed By: #### H H ####[facility] Vomtbeafrh[address] [place], [place] [address]DrSkylar Leal Hemoglobin (Bld) [Mass/Vol] 8.7 g/dL Critically low 14.0-18.0 [facility] Comment on above: Performed By: #### H H ####[facility] Yaephstcxd[address] [place], [place] [address]DrSkylar Leal MCH (RBC) [Entitic mass] 30.3 pg Normal 25.9-34.0 [facility] Comment on above: Performed By: #### H H ####[facility] Yvgv[address]htq[address] [place], [place] [address]DrSkylar Leal MCHC (RBC) [Mass/Vol] 32.1 g/dL Normal 29.9-35.2 [facility] Comment on above: Performed By: #### H H ####[facility] [address] [place] [address]DrSkylar Joshilorri Elvis MCV (RBC) [Entitic vol] 94.4 fL Critically high 80.0-94.0 [facility] Comment on above: Performed By: #### H H ####[facility] [address] [address]DrSkylar Leal PLT 355 103/ul Normal 150-450 [facility] Comment on above: Performed By: #### H H ####[facility] Z[address] [place] [id number] Leal RBC 2.87 106/ul Critically low 4.70-6.10 [facility] Comment on above: Performed By: #### H H ####[facility] [address] [place] [address]DrSkylar Leal WBC 6.0 103/ul Normal 4.0-11.0 [facility] Comment on above: Performed By: #### H H ####[facility] [address] [place] [id number] Leal PHOSPHORUSon 12-29-2021 Phosphate [Mass/Vol] 2.5 mg/dL Critically low 2.6-4.7 [facility] Comment on above: Performed By: #### P HOS, CMP ####[facility] [address]oz[address] [place] [id number] Leal PROF 14(COMP METB)on 022 Albumin [Mass/Vol] 1.7 g/dL Critically low 3.4-5.0 Th [facility] Comment on above: Performed By: #### P HOS, CMP ####[facility] [address] [place] [address]DrSkylar Leal Albumin/Globulin [Mass ratio] 0.5 {ratio} Normal [facility] Comment on above: Performed By: #### P HOS, CMP ####[facility] [address] [place] [id number]. Farhat Leal ALP [Catalytic activity/Vol] 78 U/L Normal 46-116 [facility] Comment on above: Performed By: #### P HOS, CMP ####[facility] Nptthzvdru[address] [place], [place] [address]Dr. Farhat Leal ALT [Catalytic activity/Vol] 12 U/L Critically low 16-63 [facility] Comment on above: Performed By: #### P HOS, CMP ####[facility] Pjfzgnviae[address] [place], [place] [address]Dr. Farhat Leal Anion gap [Moles/Vol] 5.1 mmol/L Normal [facility] Comment on above: Performed By: #### P HOS, CMP ####[facility] Hpqwcgsgys[address] [place], [place] [address]Dr. Farhat Leal AST [Catalytic activity/Vol] 22 U/L Normal 15-37 [facility] Comment on above: Performed By: #### P HOS, CMP ####[facility] Uperyeubop86[address] [place], [place] [address]Dr. Farhat Leal Bilirubin [Mass/Vol] 0.6 mg/dL Normal 0.2-1.0 [facility] Comment on above: Performed By: #### P HOS, CMP ####[facility] Ffegnupuhr[address] [place], [place] [address]Dr. Farhat Leal Calcium [Mass/Vol] 8.1 mg/dL Critically low 8.5-10.1 Th [facility] Comment on above: Performed By: #### P HOS, CMP ####[facility] Jrkexdakar[address] [place], [place] [address]Dr. Farhat Leal Chloride [Moles/Vol] 100 mmol/L Normal 98-107 [facility] Comment on above: Performed By: #### P HOS, CMP ####[facility] Mjpreziqvt[address] [place], [place] [address]Dr. Farhat Leal CO2 [Moles/Vol] 34.2 mmol/L Critically high 21.0-32.0 [facility] Comment on above: Performed By: #### P HOS, CMP ####[facility] [address] [place] [address]Dr. Farhat Leal Creatinine [Mass/Vol] 0.92 mg/dL Normal 0.70-1.30 [facility] Comment on above: Performed By: #### P HOS, CMP ####[facility] Jskrdxdomm[address] [place], [place] [address]Dr. Farhat Leal EGFR-AF PORTUGUESE >60 Normal >=60 [facility] Comment on above: Performed By: #### P HOS, CMP ####[facility] [address] [place] [address]Dr. Farhat Leal EGFR-NON AF [place]UGUESE >60 Normal >=60 [facility] Comment on above: Performed By: #### P HOS, CMP ####[facility] Vcbpcqwszv[address] [place], [place] [address]Dr. Farhat Leal Globulin (S) [Mass/Vol] 3.3 g/dL Normal [facility] Comment on above: Performed By: #### P HOS, CMP ####[facility] Wfqcvxbrut[address] [place], [place] [address]Dr. Farhat Leal Glucose [Mass/Vol] 116 mg/dL Critically high 74-106 [facility] Comment on above: Performed By: #### P HOS, CMP ####[facility] Wmbszhnnnz[address] [place], [place] [address]Dr. Farhat Leal Potassium [Moles/Vol] 3.3 mmol/L Critically low 3.5-5.1 [facility] Comment on above: Performed By: #### P HOS, CMP ####[facility] Ddloiuqbns[address] [place], [place] [address]Dr. Farhat Leal Protein [Mass/Vol] 5.0 g/dL Critically low 6.4-8.2 [facility] Comment on above: Performed By: #### P HOS, CMP ####[facility] Ewxsqaawma[address] [place], [place] [address]Dr. Farhat Leal Sodium [Moles/Vol] 136 mmol/L Normal 136-145 [facility] Comment on above: Performed By: #### P HOS, CMP ####[facility] Lzgzjuiuta[address] [place], [place] [address]Dr. Farhat Leal Urea nitrogen [Mass/Vol] 14.0 mg/dL Normal 7.0-18.0 [facility] Comment on above: Performed By: #### P HOS, CMP ####[facility] Kywjtiyqyx[address] [place], [place] [address]Dr. Farhat Leal Urea nitrogen/Creatinine [Mass ratio] 15.2 mg/mg Normal [facility] Comment on above: Performed By: #### P HOS, CMP ####[facility] Nqpsqmktgk[address] [place], [place] [address]Dr. Farhat Leal PROTIMEon 12-29-2021 INR Coag (PPP) [Relative time] 1.26 {INR} Normal [facility] Comment on above: Performed By: #### P T ####[facility] Gfdoockdcq94[address] [place], [place] [address]Dr. Farhat Leal INR GUIDELINES SEE BELOW Normal [facility] Comment on above: Result Comment: MALINA RED INR: 2.0 - 3.0 CONDITIONS NOT LISTED BELOW 2.5 - 3.5 FOR PROSTHETIC HEART VALVE REPLACEMENT 2.5 - 3.5 RECURRENT THROMBOSIS Performed By: #### P T ####[facility] Jfyfetfdwt[address] [place], [place] [address]Dr. Farhat Leal PT Coag (PPP) [Time] 13.4 s Critically high 9.0-11.6 [facility] Comment on above: Performed By: #### P T ####[facility] Wofwipkitm[address] [place], [place] [address]Dr. Farhat Leal XR MODIFIED BARIUM SWALLOWon 12-25-2021 XR MODIFIED BARIUM SWALLOW Normal [facility] FUNGAL CULTUREon 12-24-2021 Fungus (Mycology) Culture Final report Normal [facility] Comment on above: Performed By: #### C XFUN ####[facility] Mysodskubs[address] [place], [place] [address]Dr. Farhat Leal Fungus Stain Final report Normal [facility] Comment on above: Performed By: #### C XFUN ####[facility] Zicadfefwe[address] [place], [place] [address]Dr. Farhat Leal Result 1 Comment Normal [facility] Comment on above: Result Comment: ANNI/ Calcofluor preparation: no fungus observed. Performed By: #### C XFUN ####[facility] Tzlmfuqxog[address] [place], [place] [address]Dr. Farhat Leal Result Comment: No y east or mold isolated after 4 weeks. VANCOMYCIN TROUGHon 12-21-19 VANCOMYCIN TROUGH 14.4 ug/ml Normal 5.0-20.0 [facility] Comment on above: Performed By: #### V ANCT ####[facility] Yplvwsqyeb22[address] [place], [place] [address]Dr. Farhat Leal CBC AUTO DIFFon 12-14-2021 BASO # 0.0 103/ul Normal 0.0-0.1 [facility] Comment on above: Performed By: #### C BC ####[facility] Dygfnphsjh[address] [place], [place] [address]Dr. Farhat Leal Basophils/100 WBC (Bld) 0.2 % Normal 0.2-2.0 [facility] Comment on above: Performed By: #### C BC ####[facility] Spsmxoaral16[address] [place], [place] [address]Dr. Farhat Leal EO # 0.2 103/ul Normal 0.0-0.7 [facility] Comment on above: Performed By: #### C BC ####[facility] Ueoxstxalw[address] [place], [place] [address]Dr. Farhat Leal Eosinophils/100 WBC (Bld) 2.1 % Normal 0.9-7.0 [facility] Comment on above: Performed By: #### C BC ####[facility] Qxorbcuvaq[address] [place], [place] [address]Dr. Farhat Leal Erythrocyte distribution width (RBC) [Ratio] 18.2 % Critically high 11.0-15.0 [facility] Comment on above: Performed By: #### C BC ####[facility] Ghlqgakepc[address] [place], [place] [address]Dr. Farhat Leal Hematocrit (Bld) [Volume fraction] 25.8 % Critically low 42.0-54.0 [facility] Comment on above: Performed By: #### C BC ####[facility] [address] [place] [address]Dr. Farhat Leal Hemoglobin (Bld) [Mass/Vol] 8.0 g/dL Critically low 14.0-18.0 [facility] Comment on above: Performed By: #### C BC ####[facility] Ojjyxeidyb[address] [place] [address]Dr. Farhat Leal IG # 0.08 10e3/ul Critically high 0.00-0.03 [facility] Comment on above: Performed By: #### C BC ####[facility] Snftaqtmuy299[address] [place] [address]Dr. Farhat Leal IG % 0.7 % Critically high 0.0-0.5 [facility] Comment on above: Performed By: #### C BC ####[facility] Rreonyoaaw[address]24 [place] [address]Dr. Farhat Leal LYMPH # 0.9 103/ul Critically low 1.2-3.8 [facility] Comment on above: Performed By: #### C BC ####[facility] Ndhqurucaa[address] [place] [address]Dr. Farhat Leal Lymphocytes/100 WBC (Bld) 8.7 % Critically low 20.5-60.0 [facility] Comment on above: Performed By: #### C BC ####[facility] Ndsrmhrpfg[address] [place] [address]Dr. Farhat Leal MANUAL DIFF REQ NO Normal [facility] Comment on above: Performed By: #### C BC ####[facility] Anycusghfz3[address] [place] [address]Dr. Farhat Leal MCH (RBC) [Entitic mass] 30.0 pg Normal 25.9-34.0 [facility] Comment on above: Performed By: #### C BC ####[facility] Lvkpcsphsz7167 [place] [address]Dr. Farhat Leal MCHC (RBC) [Mass/Vol] 31.0 g/dL Normal 29.9-35.2 [facility] Comment on above: Performed By: #### C BC ####[facility] Ucljaittvj[address] [place] [id number]. Farhat Leal MCV (RBC) [Entitic vol] 96.6 fL Critically high 80.0-94.0 [facility] Comment on above: Performed By: #### C BC ####[facility] Teyssikjsf[address] [place] [id number]. Farhat Leal MONO # 0.7 103/ul Normal 0.3-0.8 [facility] Comment on above: Performed By: #### C BC ####[facility] Uoqlsaucqe6[address] [place] [id number]. Farhat Elvis Monocytes/100 WBC (Bld) 6.7 % Normal 1.7-12.0 [facility] Comment on above: Performed By: #### C BC ####[facility] Onhteoyvae[address] [place], [place] [address]Dr. Farhat Leal NEUT # 8.8 103/ul Critically high 1.4-6.5 [facility] Comment on above: Performed By: #### C BC ####[facility] Tavqunsilr035[address] [place] [id number]. Farhat Elvis Neutrophils/100 WBC (Bld) 81.6 % Critically high 43.0-75.0 [facility] Comment on above: Performed By: #### C BC ####[facility] Suvboehyfq9581 [place] [id number]. Farhat Elvis Platelet mean volume (Bld) [Entitic vol] 10.5 fL Normal 9.5-13.5 [facility] Comment on above: Performed By: #### C BC ####[facility] Togywoehwe[address] [place], [place] [address]Dr. Farhat Leal PLT 285 103/ul Normal 150-450 [facility] Comment on above: Performed By: #### C BC ####[facility] Mphzrmjcrf6998 [place] [id number]. Farhat Leal RBC 2.67 106/ul Critically low 4.70-6.10 [facility] Comment on above: Performed By: #### C BC ####[facility] Ojyxskyzcp8[address] [place] [address]Dr. Farhat Leal WBC 10.7 103/ul Normal 4.0-11.0 [facility] Comment on above: Performed By: #### C BC ####[facility] Ajhifcddae8[address] [place] [address]Dr. Farhat Leal PROF CHEM 8 (BAS METB)on Anion gap [Moles/Vol] 12.4 mmol/L Normal [facility] Comment on above: Performed By: #### B MP ####[facility] Kbxnreskdy8752 [place] [address]Dr. Farhat Leal Calcium [Mass/Vol] 7.8 mg/dL Critically low 8.5-10.1 [facility] Comment on above: Performed By: #### B MP ####[facility] Taqqlzguiv[address] [place], [place] [address]Dr. Farhat Leal Chloride [Moles/Vol] 102 mmol/L Normal 98-107 [facility] Comment on above: Performed By: #### B MP ####[facility] Jfxwhcgzxz[address] [place], [place] [address]Dr. Farhat Leal CO2 [Moles/Vol] 28.1 mmol/L Normal 21.0-32.0 [facility] Comment on above: Performed By: #### B MP ####[facility] Jqepfgbubj[address] [place], [place] [address]DrSkylar Leal Creatinine [Mass/Vol] 1.24 mg/dL Normal 0.70-1.30 [facility] Comment on above: Performed By: #### B MP ####[facility] Nsizejhrcr5265 [place] [address]Dr. Farhat Leal EGFR-AF PORTUGUESE >60 Normal >=60 [facility] Comment on above: Performed By: #### B MP ####[facility] Iwisgwhwfc6[address] [place] [address]Dr. Farhat Leal EGFR-NON AF PORTUGUESE 57 mL/min/1.73m2 Critically low >=60 [facility] Comment on above: Performed By: #### B MP ####[facility] Sfwprnubwg0299 [place] [address]Dr. Farhat Leal Glucose [Mass/Vol] 296 mg/dL Critically high 74-106 [facility] Comment on above: Performed By: #### B MP ####[facility] Zzlznzbntx2937 [place] [address]Dr. Farhat Leal Potassium [Moles/Vol] 3.5 mmol/L Normal 3.5-5.1 [facility] Comment on above: Performed By: #### B MP ####[facility] Fgkvcrqmqf[address] [place], [place] [address]Dr. Farhat Leal Sodium [Moles/Vol] 139 mmol/L Normal 136-145 [facility] Comment on above: Performed By: #### B MP ####[facility] Fhwsvlussd[address] [place], [place] [address]Dr. Farhat Leal Urea nitrogen [Mass/Vol] 27.0 mg/dL Critically high 7.0-18.0 [facility] Comment on above: Performed By: #### B MP ####[facility] Pisfhnuxvi[address] [place], [place] [address]Dr. Farhat Leal Urea nitrogen/Creatinine [Mass ratio] 21.8 mg/mg Normal [facility] Comment on above: Performed By: #### B MP ####[facility] Hbbyetdvgk[address] [place], [place] [address]Dr. Farhat Leal PROTIMEon 12-14-2021 INR Coag (PPP) [Relative time] 3.36 {INR} Normal [facility] Comment on above: Performed By: #### P T ####[facility] Znlvprkrnp[address] [place], [place] [address]Dr. Farhat Leal INR GUIDELINES SEE BELOW Normal [facility] Comment on above: Result Comment: MALINA RED INR: 2.0 - 3.0 CONDITIONS NOT LISTED BELOW 2.5 - 3.5 FOR PROSTHETIC HEART VALVE REPLACEMENT 2.5 - 3.5 RECURRENT THROMBOSIS Performed By: #### P T ####[facility] X[address] [place], [place] [address]Xn. Farhat lEvis PT Coag (PPP) [Time] 33.5 s Critically high 9.0-11.6 [facility] Comment on above: Performed By: #### P T ####[facility] [address]ib[address]vlz[address] [place], [place] [address]Gw. Farhat Elvis XR CHEST 1 Von 12-14-2021 XR CHEST 1 V Normal [facility] No Panel Informationon 12-01 BLANK _ [facility] Implant Date 04/22/2012 [facility]ER [facility] CHECKon AMS Duration (ms) 5 of 8 [facility] AMS Fallback Rate (bpm) DDIR [facility] AV Delay Adaptive Paced Minimum (ms) 300 ms [facility] AV Delay Adaptive Rate Maximum (bpm) 130 {beats}/min [facility] AV Delay Adaptive Rate Minimum (bpm) 70 {beats}/min [facility] AV Delay Adaptive Sensed Minimum (ms) 300 ms [facility] AV Delay Paced (ms) 300 ms [facility] AV Delay Sensed (ms) 300 ms [facility] Jaciel LV Pacing Polarity Unknown [facility] Jaciel LV Sensing Polarity Unknown [facility] Jaciel RA Pacing Amplitude (volts) 2.4 V [facility] Jaciel RA Pacing Polarity BI [facility] Jaciel RA Pacing Pulse Width (ms) 0.4 ms [facility] Jaciel RA Sensing Amplitude (mvolts) AUTO [facility] Jaciel RA Sensing Blanking Period (ms) 56 ms [facility] Jaciel RA Sensing Polarity BI [facility] Jaciel RA Sensing Refractory Period (ms) AUTO [facility] Jaciel RV Pacing Amplitude (volts) 3.4 V [facility] Jaciel RV Pacing Polarity BI [facility] Jaciel RV Pacing Pulse Width (ms) 0.4 ms [facility] Jaciel RV Sensing Amplitude (mvolts) AUTO [facility] Jaciel RV Sensing Blanking Period (ms) 30 ms [facility] Jaciel RV Sensing Polarity BI [facility] Jaciel RV Sensing Refractory Period (ms) 250 ms [facility] Hysteresis Rate (bpm) 60 {beats}/min [facility] Lead1 Mfg SUZETTE [facility] Lead2 Mfg SUZETTE [facility] Location RA [facility] Location RV [facility] Lower Rate (bpm) 60 {beats}/min [facility] Max Sensor Rate (bmp) 130 {beats}/min [facility] Model 119161 [facility] Model 986612 [facility] Model 057043 [facility] Pacemaker Dependent? NO [facility] PM-Device Mfg BIO [facility] PM-PMT Intervention ON [facility] PM-PVC Intervention ON [facility] PM-Rate Modulation Acceleration Reaction 4 s [facility] PM-Rate Modulation Deceleration 0.5 m [facility] PM-Rate Modulation [place] 23 [facility] PM-Rate Modulation Threshold Medium [facility] RA Bipolar Impedance ohms 448 ohm [facility] Rhythm AF with controlled ventricular rate. [facility] RV Bipolar Impedance ohms 390 ohm [facility] Serial Number [id number] [facility] Serial Number [id number] [facility] Serial Number [id number] [facility] Thresh RA Sensing Amplitude (mvolts) 2.4 mV [facility] Thresh RV Capture Amplitude (volts) 1.8 V [facility] Thresh RV Capture Duration (ms) 0.4 ms [facility] Thresh RV Sensing Amplitude (mvolts) 2.4 mV [facility] Tracking Rate (bpm) 160 {beats}/min [facility] BNPon 11-28-2021 Natriuretic peptide B (Bld) [Mass/Vol] 11840.0 pg/mL Critically high <=1,800.0 [facility] Comment on above: Performed By: #### C MP, BNP, CRP ####[facility] Nhntnzifmi[address] [place], [place] [address]Dr. Farhat Leal CBC AUTO DIFFon 11-28-2021 BASO # 0.0 103/ul Normal 0.0-0.1 [facility] Comment on above: Performed By: #### C BC ####[facility] [address]xtl[address] [place] [address]Dr. Farhat Leal Basophils/100 WBC (Bld) 0.3 % Normal 0.2-2.0 [facility] Comment on above: Performed By: #### C BC ####[facility] [address]womtsqy[address] [place] [address]Dr. Farhat Leal EO # 0.1 103/ul Normal 0.0-0.7 [facility] Comment on above: Performed By: #### C BC ####[facility] Sffqjhkquo[address] [place] [id number]. Farhat Leal Eosinophils/100 WBC (Bld) 1.0 % Normal 0.9-7.0 [facility] Comment on above: Performed By: #### C BC ####[facility] Jjazjfrsbo2[address] [place] [id number]. Farhat Leal Erythrocyte distribution width (RBC) [Ratio] 14.0 % Normal 11.0-15.0 [facility] Comment on above: Performed By: #### C BC ####[facility] [address]onvtxlpfu[address] [place], [place] [address]Dr. Farhat Leal Hematocrit (Bld) [Volume fraction] 27.6 % Critically low 42.0-54.0 [facility] Comment on above: Performed By: #### C BC ####[facility] Xzhftpxltc46[address] [place], [place] [address]Dr. Farhat Leal Hemoglobin (Bld) [Mass/Vol] 9.0 g/dL Critically low 14.0-18.0 [facility] Comment on above: Performed By: #### C BC ####[facility] Usqmakwfga[address] [place], [place] [address]Dr. Farhat Leal IG # 0.12 10e3/ul Critically high 0.00-0.03 [facility] Comment on above: Performed By: #### C BC ####[facility] Bknkdbfvqa[address] [place], [place] [address]Dr. Farhat Leal IG % 1.0 % Critically high 0.0-0.5 [facility] Comment on above: Performed By: #### C BC ####[facility] Wdgpyxwtjj[address] [place], [place] [address]Dr. Farhat Leal LYMPH # 1.2 103/ul Normal 1.2-3.8 [facility] Comment on above: Performed By: #### C BC ####[facility] Jsmijbnrrf[address] [place], [place] [address]Dr. Farhat Leal Lymphocytes/100 WBC (Bld) 9.9 % Critically low 20.5-60.0 [facility] Comment on above: Performed By: #### C BC ####[facility] Cgtjrwslht034[address] [place] [id number]. Farhat Leal MANUAL DIFF REQ NO Normal [facility] Comment on above: Performed By: #### C BC ####[facility] Gnksmrjaqj8058 [place] [id number]. Farhat Leal MCH (RBC) [Entitic mass] 30.0 pg Normal 25.9-34.0 [facility] Comment on above: Performed By: #### C BC ####[facility] Lgggxobbtx6434 [place] [id number]. Farhat Leal MCHC (RBC) [Mass/Vol] 32.6 g/dL Normal 29.9-35.2 [facility] Comment on above: Performed By: #### C BC ####[facility] Kbnpdqleri[address] [place], [place] [address]Dr. Farhat Leal MCV (RBC) [Entitic vol] 92.0 fL Normal 80.0-94.0 [facility] Comment on above: Performed By: #### C BC ####[facility] [address]ksyzy[address] [place], [place] [address]Dr. Farhat Leal MONO # 1.1 103/ul Critically high 0.3-0.8 [facility] Comment on above: Performed By: #### C BC ####[facility] Kwnvmtgsua[address] [place], [place] [address]Dr. Farhat Leal Monocytes/100 WBC (Bld) 9.3 % Normal 1.7-12.0 [facility] Comment on above: Performed By: #### C BC ####[facility] Xnaywlwaos[address] [place], [place] [address]Dr. Farhat Leal NEUT # 9.3 103/ul Critically high 1.4-6.5 [facility] Comment on above: Performed By: #### C BC ####[facility] [address]qocgynhpr[address] [place], [place] [address]Dr. Farhat Leal Neutrophils/100 WBC (Bld) 78.5 % Critically high 43.0-75.0 [facility] Comment on above: Performed By: #### C BC ####[facility] H[address]gilakm23[address] [place], [place] [address]Cv. Farhat Leal Platelet mean volume (Bld) [Entitic vol] 9.6 fL Normal 9.5-13.5 [facility] Comment on above: Performed By: #### C BC ####[facility] Tyjktcbbbf9[address] [place] [id number]. Farhta Leal PLT 357 103/ul Normal 150-450 [facility] Comment on above: Performed By: #### C BC ####[facility] Uftmvkmwlu4962 [place], [place] [address]Cd. Madelynlorri Elvis RBC 3.00 106/ul Critically low 4.70-6.10 [facility] Comment on above: Performed By: #### C BC ####[facility] Wfbnaphriw9[address] [place] [id number]. Madelynlorri Elvis WBC 11.8 103/ul Critically high 4.0-11.0 [facility] Comment on above: Performed By: #### C BC ####[facility] Tqxuruocys7464 [place], [place] [address]Hr. Farhat Elvis CRPon 11-28-2021 CRP 20.9 mg/dL Critically high <=1.0 [facility] Comment on above: Performed By: #### C MP, BNP, CRP ####[facility] Uffhqafcpi89[address] [place] [id number]. Madelynlorri Elvis CULTURE OTHERon 11-28-2021 CULTURE OTHER Normal [facility] Comment on above: Performed By: #### O THCX ####[facility] Kvgntmxfwr[address] [place], [place] [address]Cu. aFrhat Leal CULTURE OTHER Normal [facility] Comment on above: Performed By: #### O THCX ####[facility] Gtqfmqfrbc39[address] [place] [id number] Leal PROF 14(COMP METB)on 022 Albumin [Mass/Vol] 1.4 g/dL Critically low 3.4-5.0 [facility] Comment on above: Performed By: #### C MP, BNP, CRP ####[facility] Vgnoduuosk[address] [place] [address]Dr. Farhat Leal Albumin/Globulin [Mass ratio] 0.4 {ratio} Normal [facility] Comment on above: Performed By: #### C MP, BNP, CRP ####[facility] Sauabqspqn[address] [place] [address]Dr. Farhat Leal ALP [Catalytic activity/Vol] 82 U/L Normal 46-116 [facility] Comment on above: Performed By: #### C MP, BNP, CRP ####[facility] Xytrtgvntv0639 [place] [address]Dr. Farhat Leal ALT [Catalytic activity/Vol] 20 U/L Normal 16-63 [facility] Comment on above: Performed By: #### C MP, BNP, CRP ####[facility] Jsawuyzhdd[address] [place], [place] [address]Dr. Farhat Leal Anion gap [Moles/Vol] 13.0 mmol/L Normal [facility] Comment on above: Performed By: #### C MP, BNP, CRP ####[facility] Ftxaxdvvci[address] [place], [place] [address]Dr. Farhat Leal AST [Catalytic activity/Vol] 33 U/L Normal 15-37 [facility] Comment on above: Performed By: #### C MP, BNP, CRP ####[facility] Cijvbbfrfy[address] [place], [place] [address]Dr. Farhat Leal Bilirubin [Mass/Vol] 0.7 mg/dL Normal 0.2-1.0 [facility] Comment on above: Performed By: #### C MP, BNP, CRP ####[facility] Ypdvtwkbqi[address] [place], [place] [address]Dr. Farhat Leal Calcium [Mass/Vol] 8.4 mg/dL Critically low 8.5-10.1 [facility] Comment on above: Performed By: #### C MP, BNP, CRP ####[facility] Pfigxafvme[address] [place], [place] [address]Dr. Farhat Leal Chloride [Moles/Vol] 100 mmol/L Normal 98-107 [facility] Comment on above: Performed By: #### C MP, BNP, CRP ####[facility] Yfdmivdqpq7681 [place] [address]Dr. Farhat Leal CO2 [Moles/Vol] 23.7 mmol/L Normal 21.0-32.0 [facility] Comment on above: Performed By: #### C MP, BNP, CRP ####[facility] Yxpzgypnjy0399 [place] [address]Dr. Farhat Leal Creatinine [Mass/Vol] 1.70 mg/dL Critically high 0.70-1.30 [facility] Comment on above: Performed By: #### C MP, BNP, CRP ####[facility] [address]jxtxizsi[address] [place], [place] [address]Dr. Farhat Leal EGFR-AF [place] 48 mL/min/1.73m2 Critically low >=60 [facility] Comment on above: Performed By: #### C MP, BNP, CRP ####[facility] Yrihzuujxs[address] [place], [place] [address]Dr. Farhat Leal EGFR-NON AF [place] 39 mL/min/1.73m2 Critically low >=60 [facility] Comment on above: Performed By: #### C MP, BNP, CRP ####[facility] Ykkgsyxwbr38[address] [place] [address]Dr. Farhat Leal Globulin (S) [Mass/Vol] 3.6 g/dL Normal [facility] Comment on above: Performed By: #### C MP, BNP, CRP ####[facility] R[address]mfhs[address] [place] [address]Dr. Farhat Leal Glucose [Mass/Vol] 232 mg/dL Critically high 74-106 [facility] Comment on above: Performed By: #### C MP, BNP, CRP ####[facility] Jbeodihzat[address] [place] [address]Dr. Farhat Leal Potassium [Moles/Vol] 3.7 mmol/L Normal 3.5-5.1 [facility] Comment on above: Performed By: #### C MP, BNP, CRP ####[facility] Gndoyqgura[address] [place] [address]Dr. Farhat Leal Protein [Mass/Vol] 5.0 g/dL Critically low 6.4-8.2 Th [facility] Comment on above: Performed By: #### C MP, BNP, CRP ####[facility] Tssusbus[address] [place] [address]Dr. Farhat Leal Sodium [Moles/Vol] 133 mmol/L Critically low 136-145 [facility] Comment on above: Performed By: #### C MP, BNP, CRP ####[facility] Ltwjelioyb[address] [place] [address]Dr. Farhat Leal Urea nitrogen [Mass/Vol] 52.0 mg/dL Critically high 7.0-18.0 [facility] Comment on above: Performed By: #### C MP, BNP, CRP ####[facility] Lxhisym[address]up[address] [place], [place] [address]Dr. Farhat Leal Urea nitrogen/Creatinine [Mass ratio] 30.6 mg/mg Normal [facility] Comment on above: Performed By: #### C MP, BNP, CRP ####[facility] Axvpkctddz[address] [place], [place] [address]Dr. Farhat Leal PROTIMEon 11-28-2021 INR Coag (PPP) [Relative time] 1.29 {INR} Normal [facility] Comment on above: Performed By: #### P T ####[facility] [address]lz[address] [place], [place] [address]Dr. Farhat Leal INR GUIDELINES SEE BELOW Normal [facility] Comment on above: Result Comment: MALINA RED INR: 2.0 - 3.0 CONDITIONS NOT LISTED BELOW 2.5 - 3.5 FOR PROSTHETIC HEART VALVE REPLACEMENT 2.5 - 3.5 RECURRENT THROMBOSIS Performed By: #### P T ####[facility] Xzvzaxz[address] [place], [place] [address]Dr. Farhat Leal PT Coag (PPP) [Time] 13.7 s Critically high 9.0-11.6 [facility] Comment on above: Performed By: #### P T ####[facility] Hmlcxnpgfm[address] [place] [address]Dr. Farhat Leal SED RATE WESTERGRENon 2021 SED RATE 77 mm/hr Critically high <=20 The [facility] Comment on above: Performed By: #### S EDR ####[facility] Wensfnnnww[address] [place], [place] [address]Dr. Farhat Leal XR CHEST 2 Von 11-28-2021 XR CHEST 2 V Normal [facility] BNPon 11-27-2021 Natriuretic peptide B (Bld) [Mass/Vol] 07660.0 pg/mL Critically high <=1,800.0 [facility] Comment on above: Performed By: #### B TEACHER EDUCATION DIRECTOR, CMP, CRP ####[facility] Kixiwxufdm[address] [place], [place] [address]Dr. Farhat Leal CBC AUTO DIFFon 11-27-2021 BASO # 0.0 103/ul Normal 0.0-0.1 [facility] Comment on above: Performed By: #### C BC ####[facility] Zjerfcmidw[address] [place], [place] [address]Dr. Farhat Leal Basophils/100 WBC (Bld) 0.2 % Normal 0.2-2.0 [facility] Comment on above: Performed By: #### C BC ####[facility] Dsxfeaurkq19[address] [place], [place] [address]Dr. Farhat Leal EO # 0.2 103/ul Normal 0.0-0.7 [facility] Comment on above: Performed By: #### C BC ####[facility] Kfwnhazbus[address] [place], [place] [address]Dr. Farhat Leal Eosinophils/100 WBC (Bld) 1.9 % Normal 0.9-7.0 [facility] Comment on above: Performed By: #### C BC ####[facility] Chgcmsvxac70[address] [place], [place] [address]Dr. Farhat Leal Erythrocyte distribution width (RBC) [Ratio] 13.9 % Normal 11.0-15.0 [facility] Comment on above: Performed By: #### C BC ####[facility] [address]oxxakdhqv[address] [place] [address]Dr. Farhat Leal Hematocrit (Bld) [Volume fraction] 28.7 % Critically low 42.0-54.0 [facility] Comment on above: Performed By: #### C BC ####[facility] Smojctvafu[address] [place] [address]Dr. Farhat Leal Hemoglobin (Bld) [Mass/Vol] 9.3 g/dL Critically low 14.0-18.0 [facility] Comment on above: Performed By: #### C BC ####[facility] Fusdraciej[address] [place] [address]Dr. Farhat Leal IG # 0.14 10e3/ul Critically high 0.00-0.03 [facility] Comment on above: Performed By: #### C BC ####[facility] Mhuyqgxsxx[address] [place], [place] [address]Dr. Farhat Leal IG % 1.2 % Critically high 0.0-0.5 The [facility] Comment on above: Performed By: #### C BC ####[facility] Jsqxrttmuu[address] [place], [place] [address]Dr. Farhat Leal LYMPH # 1.1 103/ul Critically low 1.2-3.8 The [facility] Comment on above: Performed By: #### C BC ####[facility] Gxrxfcmqin[address] [place] [address]Dr. Farhat Leal Lymphocytes/100 WBC (Bld) 9.4 % Critically low 20.5-60.0 [facility] Comment on above: Performed By: #### C BC ####[facility] Mvghtednql[address] [place] [address]Dr. Farhat Leal MANUAL DIFF REQ NO Normal [facility] Comment on above: Performed By: #### C BC ####[facility] Bvahipgcbs[address] [place], [place] [address]Dr. Farhat Leal MCH (RBC) [Entitic mass] 29.7 pg Normal 25.9-34.0 [facility] Comment on above: Performed By: #### C BC ####[facility] Osfffpivdv[address] [place] [id number]. Farhat Leal MCHC (RBC) [Mass/Vol] 32.4 g/dL Normal 29.9-35.2 [facility] Comment on above: Performed By: #### C BC ####[facility] Paeeimbggx[address] [place] [id number]. Farhat Leal MCV (RBC) [Entitic vol] 91.7 fL Normal 80.0-94.0 [facility] Comment on above: Performed By: #### C BC ####[facility] Snxeb[address] [place], [place] [address]Dr. Farhat Leal MONO # 1.1 103/ul Critically high 0.3-0.8 [facility] Comment on above: Performed By: #### C BC ####[facility] Helrufntoz0[address] [place], [place] [address]Dr. Farhat Leal Monocytes/100 WBC (Bld) 9.7 % Normal 1.7-12.0 [facility] Comment on above: Performed By: #### C BC ####[facility] Doeumnhqgq[address] [place], [place] [address]Dr. Farhat Leal NEUT # 9.2 103/ul Critically high 1.4-6.5 [facility] Comment on above: Performed By: #### C BC ####[facility] Qvzsicbiuu[address] [place], [place] [address]Dr. Farhat Leal Neutrophils/100 WBC (Bld) 77.6 % Critically high 43.0-75.0 [facility] Comment on above: Performed By: #### C BC ####[facility] Mtnhcdmfyn9[address] [place] [id number]. Farhat Leal Platelet mean volume (Bld) [Entitic vol] 9.5 fL Normal 9.5-13.5 [facility] Comment on above: Performed By: #### C BC ####[facility] Mvsmnrdzhn[address] [place], [place] [address]Dr. Farhat Leal PLT 375 103/ul Normal 150-450 [facility] Comment on above: Performed By: #### C BC ####[facility] Ax[address]bsmzrj37[address] [place], [place] [address]Dl. Farhat Leal RBC 3.13 106/ul Critically low 4.70-6.10 [facility] Comment on above: Performed By: #### C BC ####[facility] Qbqxidnrej1069 [place], [place] [address]Mt. Farhat Leal WBC 11.8 103/ul Critically high 4.0-11.0 [facility] Comment on above: Performed By: #### C BC ####[facility] Jbgsobeocs[address] [place] [id number]. Farhat Leal CRPon 11-27-2021 CRP 24.5 mg/dL Critically high <=1.0 [facility] Comment on above: Performed By: #### B TEACHER EDUCATION DIRECTOR, CMP, CRP ####[facility] Pbqfhcqhnc[address] [place] [id number]. Farhat Leal CULTURE OTHERon 11-27-2021 CULTURE OTHER Normal [facility] Comment on above: Performed By: #### O THCX ####[facility] Oyojfokspy[address] [place] [id number]. Farhat Leal CULTURE OTHER Normal [facility] Comment on above: Performed By: #### O THCX ####[facility] Rfjsjuoqmo[address] [place] [id number]. Farhat Leal CULTURE WOUNDon 11-27-2021 CULTURE WOUND Normal [facility] Comment on above: Performed By: #### W OUNDCX ####[facility] Kcuiijxxyi[address] [place] [id number]. Farhat Leal POINT OF CARE GLUCOSEon 11-15 Glucose [Mass/Vol] 147 mg/dL Critically high 74-106 [facility] Comment on above: Performed By: #### P OCGLUC ####[facility] Lcqjijgrnh[address] [place] [id number]. Farhat Leal PROF 14(COMP METB)on 022 Albumin [Mass/Vol] 1.4 g/dL Critically low 3.4-5.0 [facility] Comment on above: Performed By: #### B TEACHER EDUCATION DIRECTOR, CMP, CRP ####[facility] Nsshxgrbdg9[address] [place] [id number]. Farhat Leal Albumin/Globulin [Mass ratio] 0.4 {ratio} Normal [facility] Comment on above: Performed By: #### B TEACHER EDUCATION DIRECTOR, CMP, CRP ####[facility] [address]zvtbacaet[address] [place] [address]Dr. Farhat Leal ALP [Catalytic activity/Vol] 82 U/L Normal 46-116 [facility] Comment on above: Performed By: #### B TEACHER EDUCATION DIRECTOR, CMP, CRP ####[facility] Inpiyjukzg[address] [place] [address]Dr. Farhat Leal ALT [Catalytic activity/Vol] 22 U/L Normal 16-63 [facility] Comment on above: Performed By: #### B TEACHER EDUCATION DIRECTOR, CMP, CRP ####[facility] Lexexvrvfr[address] [place] [address]Dr. Farhat Leal Anion gap [Moles/Vol] 14.2 mmol/L Normal [facility] Comment on above: Performed By: #### B TEACHER EDUCATION DIRECTOR, CMP, CRP ####[facility] Xvwgbfeiun7[address] [place] [address]Dr. Farhat Leal AST [Catalytic activity/Vol] 35 U/L Normal 15-37 [facility] Comment on above: Performed By: #### B TEACHER EDUCATION DIRECTOR, CMP, CRP ####[facility] Mfgsaqxerm[address] [place] [address]Dr. Farhat Leal Bilirubin [Mass/Vol] 0.7 mg/dL Normal 0.2-1.0 [facility] Comment on above: Performed By: #### B TEACHER EDUCATION DIRECTOR, CMP, CRP ####[facility] Eeeohqjivy[address] [place] [address]Dr. Farhat Leal Calcium [Mass/Vol] 8.2 mg/dL Critically low 8.5-10.1 [facility] Comment on above: Performed By: #### B TEACHER EDUCATION DIRECTOR, CMP, CRP ####[facility] Bpywyjteut[address] [place] [address]Dr. Farhat Leal Chloride [Moles/Vol] 99 mmol/L Normal 98-107 [facility] Comment on above: Performed By: #### B TEACHER EDUCATION DIRECTOR, CMP, CRP ####[facility] Sbjkywxyov[address] [place] [address]Dr. Farhat Leal CO2 [Moles/Vol] 22.6 mmol/L Normal 21.0-32.0 [facility] Comment on above: Performed By: #### B TEACHER EDUCATION DIRECTOR, CMP, CRP ####[facility] [address]lpmrbbaww[address] [place], [place] [address]Dr. Farhat Leal Creatinine [Mass/Vol] 1.73 mg/dL Critically high 0.70-1.30 [facility] Comment on above: Performed By: #### B TEACHER EDUCATION DIRECTOR, CMP, CRP ####[facility] Jvyjyawjau[address] [place], [place] [address]Dr. Madelynlorri lEvis EGFR-AF PORTUGUESE 47 mL/min/1.73m2 Critically low >=60 [facility] Comment on above: Performed By: #### B TEACHER EDUCATION DIRECTOR, CMP, CRP ####[facility] Cwbqxnkyia[address] [place], [place] [address]Dr. Farhat Leal EGFR-NON AF PORTUGUESE 38 mL/min/1.73m2 Critically low >=60 [facility] Comment on above: Performed By: #### B TEACHER EDUCATION DIRECTOR, CMP, CRP ####[facility] Ocjdqtjkfv[address] [place], [place] [address]Dr. Madelynlorri Leal Globulin (S) [Mass/Vol] 3.7 g/dL Normal [facility] Comment on above: Performed By: #### B TEACHER EDUCATION DIRECTOR, CMP, CRP ####[facility] Ipsojljguv[address] [place] [address]Dr. Farhat Leal Glucose [Mass/Vol] 220 mg/dL Critically high 74-106 [facility] Comment on above: Performed By: #### B TEACHER EDUCATION DIRECTOR, CMP, CRP ####[facility] Bnvgttztko7[address] [place] [address]Dr. Farhat Leal Potassium [Moles/Vol] 3.8 mmol/L Normal 3.5-5.1 [facility] Comment on above: Performed By: #### B TEACHER EDUCATION DIRECTOR, CMP, CRP ####[facility] Anutrvfewk[address] [place] [id number]. Farhat Leal Protein [Mass/Vol] 5.1 g/dL Critically low 6.4-8.2 Th [facility] Comment on above: Performed By: #### B TEACHER EDUCATION DIRECTOR, CMP, CRP ####[facility] Qzoghzbqsb[address] [place] [address]Dr. Farhat Leal Sodium [Moles/Vol] 132 mmol/L Critically low 136-145 Th [facility] Comment on above: Performed By: #### B TEACHER EDUCATION DIRECTOR, CMP, CRP ####[facility] Fldhyzmvyp[address] [place] [address]Dr. Farhat Leal Urea nitrogen [Mass/Vol] 49.0 mg/dL Critically high 7.0-18.0 [facility] Comment on above: Performed By: #### B TEACHER EDUCATION DIRECTOR, CMP, CRP ####[facility] Cpbouoqcft8276 [place] [address]Dr. Farhat Leal Urea nitrogen/Creatinine [Mass ratio] 28.3 mg/mg Normal [facility] Comment on above: Performed By: #### B TEACHER EDUCATION DIRECTOR, CMP, CRP ####[facility] Kjhpbdqjfc[address] [place] [address]Dr. Farhat Leal PROTIMEon 11-27-2021 INR Coag (PPP) [Relative time] 1.25 {INR} Normal [facility] Comment on above: Performed By: #### P T ####[facility] Dulgkdvrtx[address] [place] [address]Dr. Farhat Leal INR GUIDELINES SEE BELOW Normal [facility] Comment on above: Result Comment: MALINA RED INR: 2.0 - 3.0 CONDITIONS NOT LISTED BELOW 2.5 - 3.5 FOR PROSTHETIC HEART VALVE REPLACEMENT 2.5 - 3.5 RECURRENT THROMBOSIS Performed By: #### P T ####[facility] Hgjhxetqre[address] [place], [place] [address]Dr. Farhat Leal PT Coag (PPP) [Time] 13.3 s Critically high 9.0-11.6 [facility] Comment on above: Performed By: #### P T ####[facility] Zvnfsfwxvp5864 [place] [id number]. Farhat Leal SED RATE WESTERGRENon 2021 SED RATE 60 mm/hr Critically high <=20 [facility] Comment on above: Performed By: #### S EDR ####[facility] Kuzzrwxlnq89[address] [place], [place] [address]Dr. Farhat Leal VANCOMYCIN TROUGHon 11-28-19 VANCOMYCIN TROUGH 21.2 ug/ml Critically high 5.0-20.0 Th e [facility] Comment on above: Performed By: #### V ANCT ####[facility] Nzbxhfrotx[address] [place], [place] [address]Dr. Farhat Leal XR CHEST 1 Von 11-27-2021 XR CHEST 1 V Normal [facility] BNPon 11-26-2021 Natriuretic peptide B (Bld) [Mass/Vol] 25979.0 pg/mL Critically high <=1,800.0 [facility] Comment on above: Performed By: #### B TEACHER EDUCATION DIRECTOR, CRP, CMP ####[facility] Yyhvwjaxhl[address] [place], [place] [address]Dr. Farhat Leal CBC AUTO DIFFon 11-26-2021 BASO # 0.0 103/ul Normal 0.0-0.1 [facility] Comment on above: Performed By: #### C BC ####[facility] Emmjdesoby[address] [place], [place] [address]Dr. Farhat Elvis Basophils/100 WBC (Bld) 0.2 % Normal 0.2-2.0 [facility] Comment on above: Performed By: #### C BC ####[facility] Yhjbkahzjr[address] [place], [place] [address]Dr. Farhat Leal EO # 0.0 103/ul Normal 0.0-0.7 [facility] Comment on above: Performed By: #### C BC ####[facility] Dpnvrcfmge[address] [place], [place] [address]Dr. Farhat Elvis Eosinophils/100 WBC (Bld) 0.3 % Critically low 0.9-7.0 [facility] Comment on above: Performed By: #### C BC ####[facility] Siojkdyfom[address] [place] [address]Dr. Farhat Leal Erythrocyte distribution width (RBC) [Ratio] 13.9 % Normal 11.0-15.0 [facility] Comment on above: Performed By: #### C BC ####[facility] Swtcegksun[address] [place] [address]Dr. Farhat Leal Hematocrit (Bld) [Volume fraction] 27.3 % Critically low 42.0-54.0 [facility] Comment on above: Performed By: #### C BC ####[facility] Dbtayasuaj9[address] [place] [address]Dr. Farhat Leal Hemoglobin (Bld) [Mass/Vol] 8.8 g/dL Critically low 14.0-18.0 [facility] Comment on above: Performed By: #### C BC ####[facility] Irdjtqtqvx[address] [place], [place] [address]Dr. Farhat Leal IG # 0.17 10e3/ul Critically high 0.00-0.03 [facility] Comment on above: Performed By: #### C BC ####[facility] Ionbexkxey[address] [place], [place] [address]Dr. Farhat Leal IG % 1.2 % Critically high 0.0-0.5 [facility] Comment on above: Performed By: #### C BC ####[facility] Sqdxuxptmy[address] [place], [place] [address]Dr. Farhat Leal LYMPH # 0.7 103/ul Critically low 1.2-3.8 [facility] Comment on above: Performed By: #### C BC ####[facility] Ubgynisrsg[address] [place], [place] [address]Dr. Farhat Leal Lymphocytes/100 WBC (Bld) 4.8 % Critically low 20.5-60.0 [facility] Comment on above: Performed By: #### C BC ####[facility] Coxqxezlcs[address] [place], [place] [address]Dr. Farhat Leal MANUAL DIFF REQ NO Normal [facility] Comment on above: Performed By: #### C BC ####[facility] Quigteueax[address] [place] [id number]. Farhat Elvis MCH (RBC) [Entitic mass] 29.9 pg Normal 25.9-34.0 [facility] Comment on above: Performed By: #### C BC ####[facility] Kwabsxegfw74[address] [place] [id number]. Farhat Elvis MCHC (RBC) [Mass/Vol] 32.2 g/dL Normal 29.9-35.2 [facility] Comment on above: Performed By: #### C BC ####[facility] Lbmsmdmzyd217[address] [place] [id number]. Farhat Elvis MCV (RBC) [Entitic vol] 92.9 fL Normal 80.0-94.0 [facility] Comment on above: Performed By: #### C BC ####[facility] Zrbrstcrdo[address] [place] [address]Dr. Farhat Leal MONO # 1.3 103/ul Critically high 0.3-0.8 [facility] Comment on above: Performed By: #### C BC ####[facility] Cngihxkfop4[address] [place] [address]Dr. Farhat Leal Monocytes/100 WBC (Bld) 9.6 % Normal 1.7-12.0 [facility] Comment on above: Performed By: #### C BC ####[facility] Qzxtolulvq[address] [place], [place] [address]Dr. Madelynlorri Leal NEUT # 11.4 103/ul Critically high 1.4-6.5 [facility] Comment on above: Performed By: #### C BC ####[facility] Dalzwuezzn[address] [place] [id number]. Farhat Leal Neutrophils/100 WBC (Bld) 83.9 % Critically high 43.0-75.0 [facility] Comment on above: Performed By: #### C BC ####[facility] Ijomhqtbvy75[address] [place] [id number]. Farhat Leal Platelet mean volume (Bld) [Entitic vol] 9.6 fL Normal 9.5-13.5 [facility] Comment on above: Performed By: #### C BC ####[facility] Flqklaydnn[address] [place] [address]Dr. Madelynlorri Leal PLT 395 103/ul Normal 150-450 [facility] Comment on above: Performed By: #### C BC ####[facility] Nojxdnqwye5[address] [place] [id number]. Farhat Leal RBC 2.94 106/ul Critically low 4.70-6.10 [facility] Comment on above: Performed By: #### C BC ####[facility] Bpnajsrwxb27[address] [place] [address]Dr. Madelynlorri Elvis WBC 13.6 103/ul Critically high 4.0-11.0 [facility] Comment on above: Performed By: #### C BC ####[facility] Odqtqudkcp9222 [place] [address]Dr. Farhat Leal CRPon 11-26-2021 CRP [Mass/Vol] mg/L Critically high <=1.0 [facility] Comment on above: Performed By: #### B TEACHER EDUCATION DIRECTOR, CRP, CMP ####[facility] Pbbmxrytmg[address] [place], [place] [address]Dr. Farhat Leal PROF 14(COMP METB)on 022 Albumin [Mass/Vol] 1.5 g/dL Critically low 3.4-5.0 [facility] Comment on above: Performed By: #### B TEACHER EDUCATION DIRECTOR, CRP, CMP ####[facility] Upuqykqdgb65[address] [place] [address]Dr. Farhat Leal Albumin/Globulin [Mass ratio] 0.4 {ratio} Normal [facility] Comment on above: Performed By: #### B TEACHER EDUCATION DIRECTOR, CRP, CMP ####[facility] Ohdzmfpncj7114 [place] [address]Dr. Farhat Leal ALP [Catalytic activity/Vol] 88 U/L Normal 46-116 [facility] Comment on above: Performed By: #### B TEACHER EDUCATION DIRECTOR, CRP, CMP ####[facility] Vsdregozxt5638 [place] [address]Dr. Farhat Leal ALT [Catalytic activity/Vol] 29 U/L Normal 16-63 [facility] Comment on above: Performed By: #### B TEACHER EDUCATION DIRECTOR, CRP, CMP ####[facility] Gosddfhjaw6819 [place] [address]Dr. Farhat Leal Anion gap [Moles/Vol] 13.3 mmol/L Normal [facility] Comment on above: Performed By: #### B TEACHER EDUCATION DIRECTOR, CRP, CMP ####[facility] Wjgfbnvfbx[address] [place], [place] [address]Dr. Farhat Leal AST [Catalytic activity/Vol] 32 U/L Normal 15-37 [facility] Comment on above: Performed By: #### B TEACHER EDUCATION DIRECTOR, CRP, CMP ####[facility] Aolaesiktm[address] [place], [place] [address]Dr. Farhat Leal Bilirubin [Mass/Vol] 0.6 mg/dL Normal 0.2-1.0 [facility] Comment on above: Performed By: #### B TEACHER EDUCATION DIRECTOR, CRP, CMP ####[facility] Ekrfcjmstp[address] [place], [place] [address]Dr. Farhat Leal Calcium [Mass/Vol] 8.0 mg/dL Critically low 8.5-10.1 [facility] Comment on above: Performed By: #### B TEACHER EDUCATION DIRECTOR, CRP, CMP ####[facility] Xhrujblcqk[address] [place], [place] [address]Dr. Farhat Leal Chloride [Moles/Vol] 98 mmol/L Normal 98-107 [facility] Comment on above: Performed By: #### B TEACHER EDUCATION DIRECTOR, CRP, CMP ####[facility] Hpixoycxmr[address] [place], [place] [address]Dr. Farhat Leal CO2 [Moles/Vol] 23.7 mmol/L Normal 21.0-32.0 [facility] Comment on above: Performed By: #### B TEACHER EDUCATION DIRECTOR, CRP, CMP ####[facility] Nzagmhpxjy[address] [place], [place] [address]Dr. Farhat Leal Creatinine [Mass/Vol] 2.08 mg/dL Critically high 0.70-1.30 [facility] Comment on above: Performed By: #### B TEACHER EDUCATION DIRECTOR, CRP, CMP ####[facility] Fvzvoitcja84[address] [place] [address]Dr. Farhat Leal EGFR-AF [place]UGUES[place] 38 mL/min/1.73m2 Critically low >=60 [facility] Comment on above: Performed By: #### B TEACHER EDUCATION DIRECTOR, CRP, CMP ####[facility] Tuuuygbtgo5[address] [place] [address]Dr. Farhat Leal EGFR-NON AF [place] 31 mL/min/1.73m2 Critically low >=60 [facility] Comment on above: Performed By: #### B TEACHER EDUCATION DIRECTOR, CRP, CMP ####[facility] Aynxwtylgi[address] [place], [place] [address]Dr. Farhat Leal Globulin (S) [Mass/Vol] 3.7 g/dL Normal [facility] Comment on above: Performed By: #### B TEACHER EDUCATION DIRECTOR, CRP, CMP ####[facility] Melkgznzuz[address] [place], [place] [address]Dr. Farhat Leal Glucose [Mass/Vol] 315 mg/dL Critically high 74-106 T [facility] Comment on above: Performed By: #### B TEACHER EDUCATION DIRECTOR, CRP, CMP ####[facility] Wjmmnpzudg[address] [place], [place] [address]Dr. Farhat Elvis Potassium [Moles/Vol] 4.0 mmol/L Normal 3.5-5.1 [facility] Comment on above: Performed By: #### B TEACHER EDUCATION DIRECTOR, CRP, CMP ####[facility] Lnxwvhyixj[address] [place], [place] [address]Dr. Farhat Leal Protein [Mass/Vol] 5.2 g/dL Critically low 6.4-8.2 [facility] Comment on above: Performed By: #### B TEACHER EDUCATION DIRECTOR, CRP, CMP ####[facility] Jnrgfbtkgc8[address] [place], [place] [address]Dr. Farhat Leal Sodium [Moles/Vol] 131 mmol/L Critically low 136-145 Th [facility] Comment on above: Performed By: #### B TEACHER EDUCATION DIRECTOR, CRP, CMP ####[facility] Yyayioziwy[address] [place], [place] [address]Dr. Farhat Leal Urea nitrogen [Mass/Vol] 50.0 mg/dL Critically high 7.0-18.0 [facility] Comment on above: Performed By: #### B TEACHER EDUCATION DIRECTOR, CRP, CMP ####[facility] Cuxuzyadwt[address] [place], [place] [address]DrSkylar Leal Urea nitrogen/Creatinine [Mass ratio] 24.0 mg/mg Normal [facility] Comment on above: Performed By: #### B TEACHER EDUCATION DIRECTOR, CRP, CMP ####[facility] Gkyiywcgpk[address] [place], [place] [address]DrSkylar Leal PROTIMEon 11-26-2021 INR Coag (PPP) [Relative time] 1.31 {INR} Normal [facility] Comment on above: Performed By: #### P T ####[facility] Bzueitxemp[address] [place], [place] [address]DrSkylar Leal INR GUIDELINES SEE BELOW Normal The [facility] Comment on above: Result Comment: MALINA RED INR: 2.0 - 3.0 CONDITIONS NOT LISTED BELOW 2.5 - 3.5 FOR PROSTHETIC HEART VALVE REPLACEMENT 2.5 - 3.5 RECURRENT THROMBOSIS Performed By: #### P T ####[facility] Eycbopzqyy6[address] [place], [place] [address]DrSkylar Leal PT Coag (PPP) [Time] 13.9 s Critically high 9.0-11.6 The [facility] Comment on above: Performed By: #### P T ####[facility] Pklmlcddvt49[address] [place], [place] [address]DrSkylar Leal SED RATE [facility] 2021 SED RATE 87 mm/hr Critically high <=20 The [facility] Comment on above: Performed By: #### S EDR ####[facility] Flbkicazrl27[address] [place], [place] [address]DrSkylar Leal BNPon 11-25-2021 Natriuretic peptide B (Bld) [Mass/Vol] 01261.0 pg/mL Critically high <=1,800.0 The [facility] Comment on above: Performed By: #### C MP, BNP, CRP ####[facility] Qmyxrttbfz8[address] [place], [place] [address]DrSkylar Leal CBC AUTO DIFFon 11-25-2021 BASO # 0.0 103/ul Normal 0.0-0.1 The [facility] Comment on above: Performed By: #### C BC ####[facility] Suebz[address]yel[address] [place] [address]Dr. Farhat Leal Basophils/100 WBC (Bld) 0.4 % Normal 0.2-2.0 The [facility] Comment on above: Performed By: #### C BC ####[facility] Gemdxnykdn[address] [place] [address]Dr. Farhat Leal EO # 0.1 103/ul Normal 0.0-0.7 The [facility] Comment on above: Performed By: #### C BC ####[facility] Tcfrwtjqbe0083 [place] [address]Dr. Farhat Leal Eosinophils/100 WBC (Bld) 1.2 % Normal 0.9-7.0 The [facility] Comment on above: Performed By: #### C BC ####[facility] Jshjkfphmo[address] [place], [place] [address]Dr. Farhat Leal Erythrocyte distribution width (RBC) [Ratio] 13.7 % Normal 11.0-15.0 The [facility] Comment on above: Performed By: #### C BC ####[facility] Uowpjqxjej26[address] [place] [address]Dr. Farhat Leal Hematocrit (Bld) [Volume fraction] 29.6 % Critically low 42.0-54.0 The [facility] Comment on above: Performed By: #### C BC ####[facility] Tsygmmrwmw59[address] [place], [place] [address]Dr. Farhat Leal Hemoglobin (Bld) [Mass/Vol] 9.3 g/dL Critically low 14.0-18.0 [facility] Comment on above: Performed By: #### C BC ####[facility] Nvfjiglwhp[address] [place] [address]Dr. Farhat Leal IG # 0.15 10e3/ul Critically high 0.00-0.03 The [facility] Comment on above: Performed By: #### C BC ####[facility] Qbpdnnudig63[address] [place], [place] [address]Ms. Farhat Lael IG % 1.4 % Critically high 0.0-0.5 The [facility] Comment on above: Performed By: #### C BC ####[facility] Vhikxsyocz3[address] [place], [place] [address]Xp. Farhat Leal LYMPH # 0.8 103/ul Critically low 1.2-3.8 The [facility] Comment on above: Performed By: #### C BC ####[facility] Zbnqgtojri99[address] [place] [id number]. Farhat Leal Lymphocytes/100 WBC (Bld) 7.3 % Critically low 20.5-60.0 The [facility] Comment on above: Performed By: #### C BC ####[facility] Mtghzzxtll2736 [place] [id number]. Farhat Leal MANUAL DIFF REQ NO Normal The [facility] Comment on above: Performed By: #### C BC ####[facility] Stegxnzyfe14[address] [place] [id number]. Farhat Leal MCH (RBC) [Entitic mass] 29.3 pg Normal 25.9-34.0 [facility] Comment on above: Performed By: #### C BC ####[facility] Pxouoprbyi[address] [place] [id number]. Farhat Leal MCHC (RBC) [Mass/Vol] 31.4 g/dL Normal 29.9-35.2 The [facility] Comment on above: Performed By: #### C BC ####[facility] Pciecjpfwa6655 [place] [id number]. Farhat Leal MCV (RBC) [Entitic vol] 93.4 fL Normal 80.0-94.0 The [facility] Comment on above: Performed By: #### C BC ####[facility] Hbahorpuqf1299 [place] [id number]. Farhat Leal MONO # 1.3 103/ul Critically high 0.3-0.8 The [facility] Comment on above: Performed By: #### C BC ####[facility] Mirmhjewmu[address] [place] [id number]. Farhat Leal Monocytes/100 WBC (Bld) 12.3 % Critically high 1.7-12.0 The [facility] Comment on above: Performed By: #### C BC ####[facility] Nlonwyvnex1449 [place] [id number]. Farhat Leal NEUT # 8.4 103/ul Critically high 1.4-6.5 The [facility] Comment on above: Performed By: #### C BC ####[facility] Hnyqudjwfd7715 [place] [id number]. Farhat Leal Neutrophils/100 WBC (Bld) 77.4 % Critically high 43.0-75.0 The [facility] Comment on above: Performed By: #### C BC ####[facility] Bsquxgjlwk5797 [place] [id number]. Farhat Leal Platelet mean volume (Bld) [Entitic vol] 9.8 fL Normal 9.5-13.5 The [facility] Comment on above: Performed By: #### C BC ####[facility] Pllwuazvaw1139 [place] [id number]. Farhat Leal PLT 390 103/ul Normal 150-450 The [facility] Comment on above: Performed By: #### C BC ####[facility] Sumqxabxtd8425 [place] [id number]. Farhat Leal RBC 3.17 106/ul Critically low 4.70-6.10 The [facility] Comment on above: Performed By: #### C BC ####[facility] Irzyayafyx7430 [place] [id number]. Farhat Leal WBC 10.9 103/ul Normal 4.0-11.0 The [facility] Comment on above: Performed By: #### C BC ####[facility] Wsjzjhyzbm8458 [place] [id number]. Farhat Leal CRPon 11-25-2021 CRP 27.2 mg/dL Critically high <=1.0 The [facility] Comment on above: Performed By: #### C MP, BNP, CRP ####[facility] Tbofcuwxxl5[address] [place] [address]Dr. Farhat Leal PROF 14(COMP METB)on 022 Albumin [Mass/Vol] 1.5 g/dL Critically low 3.4-5.0 [facility] Comment on above: Performed By: #### C MP, BNP, CRP ####[facility] Vvlgfkunof87[address] [place] [address]Dr. Farhat Leal Albumin/Globulin [Mass ratio] 0.4 {ratio} Normal [facility] Comment on above: Performed By: #### C MP, BNP, CRP ####[facility] Fjmmzcxpuf72[address] [place] [address]Dr. Farhat Leal ALP [Catalytic activity/Vol] 86 U/L Normal 46-116 [facility] Comment on above: Performed By: #### C MP, BNP, CRP ####[facility] Vsfewfroev04[address] [place], [place] [address]Dr. Farhat Leal ALT [Catalytic activity/Vol] 34 U/L Normal 16-63 [facility] Comment on above: Performed By: #### C MP, BNP, CRP ####[facility] Jfuqvpxyrw9617[address] [place], [place] [address]Dr. Farhat Leal Anion gap [Moles/Vol] 17.8 mmol/L Normal [facility] Comment on above: Performed By: #### C MP, BNP, CRP ####[facility] Lqhmycyiod28[address] [place], [place] [address]Dr. Farhat Leal AST [Catalytic activity/Vol] 48 U/L Critically high 15-37 [facility] Comment on above: Performed By: #### C MP, BNP, CRP ####[facility] Msjcpczjti[address] [place], [place] [address]Dr. Farhat Leal Bilirubin [Mass/Vol] 0.8 mg/dL Normal 0.2-1.0 [facility] Comment on above: Performed By: #### C MP, BNP, CRP ####[facility] Lqexjighnj57[address] [place], [place] [address]Dr. Farhat Leal Calcium [Mass/Vol] 8.3 mg/dL Critically low 8.5-10.1 Th e [facility] Comment on above: Performed By: #### C MP, BNP, CRP ####[facility] Stdslqqdwm4956 [place] [address]Dr. Farhat Leal Chloride [Moles/Vol] 97 mmol/L Critically low 98-107 [facility] Comment on above: Performed By: #### C MP, BNP, CRP ####[facility] Coelloovtb0673 [place] [address]Dr. Farhat Leal CO2 [Moles/Vol] 23.0 mmol/L Normal 21.0-32.0 [facility] Comment on above: Performed By: #### C MP, BNP, CRP ####[facility] Jstegdwwim[address] [place], [place] [address]Dr. Frahat Leal Creatinine [Mass/Vol] 1.68 mg/dL Critically high 0.70-1.30 [facility] Comment on above: Performed By: #### C MP, BNP, CRP ####[facility] Fddqzegnab8[address] [place], [place] [address]Dr. Farhat Leal EGFR-AF PORTUGUESE 48 mL/min/1.73m2 Critically low >=60 [facility] Comment on above: Performed By: #### C MP, BNP, CRP ####[facility] Afjzmhpusb35[address] [place], [place] [address]Dr. Farhat Leal EGFR-NON AF [place]UESE 40 mL/min/1.73m2 Critically low >=60 [facility] Comment on above: Performed By: #### C MP, BNP, CRP ####[facility] Ekyrvittbq5233 [place] [address]Dr. Farhat Leal Globulin (S) [Mass/Vol] 3.9 g/dL Normal [facility] Comment on above: Performed By: #### C MP, BNP, CRP ####[facility] Glmhankfff1123 [place] [address]Dr. Farhat Leal Glucose [Mass/Vol] 282 mg/dL Critically high 74-106 T [facility] Comment on above: Performed By: #### C MP, BNP, CRP ####[facility] Qcnyubkifu5125 [place] [address]Dr. Madelynlorri Leal Potassium [Moles/Vol] 4.8 mmol/L Normal 3.5-5.1 [facility] Comment on above: Performed By: #### C MP, BNP, CRP ####[facility] Adusqrllmn6252 [place] [address]Dr. Madelynlorri Leal Protein [Mass/Vol] 5.4 g/dL Critically low 6.4-8.2 Th [facility] Comment on above: Performed By: #### C MP, BNP, CRP ####[facility] Chypdvhuig[address] [place], [place] [address]Dr. Farhat Leal Sodium [Moles/Vol] 133 mmol/L Critically low 136-145 Th [facility] Comment on above: Performed By: #### C MP, BNP, CRP ####[facility] Xspbvbeedk8[address] [place], [place] [address]Dr. Farhat Leal Urea nitrogen [Mass/Vol] 40.0 mg/dL Critically high 7.0-18.0 [facility] Comment on above: Performed By: #### C MP, BNP, CRP ####[facility] Rqmxdjdihv20[address] [place], [place] [address]Dr. Farhat Leal Urea nitrogen/Creatinine [Mass ratio] 23.8 mg/mg Normal [facility] Comment on above: Performed By: #### C MP, BNP, CRP ####[facility] Sngyrguhkk[address] [place], [place] [address]Dr. Farhat Leal PROTIMEon 11-25-2021 INR Coag (PPP) [Relative time] 1.48 {INR} Normal [facility] Comment on above: Performed By: #### P T ####[facility] Fwsyjyhagp96[address] [place], [place] [address]Dr. Farhat Leal INR GUIDELINES SEE BELOW Normal The [facility] Comment on above: Result Comment: MALINA RED INR: 2.0 - 3.0 CONDITIONS NOT LISTED BELOW 2.5 - 3.5 FOR PROSTHETIC HEART VALVE REPLACEMENT 2.5 - 3.5 RECURRENT THROMBOSIS Performed By: #### P T ####[facility] Nfxfngsbqj31[address] [place], [place] [address]Dr. Farhat Elvis PT Coag (PPP) [Time] 15.6 s Critically high 9.0-11.6 The [facility] Comment on above: Performed By: #### P T ####[facility] Oowszufwcv1879[address] [place], [place] [address]Dr. Farhat Leal SED RATE WESTERGRENon 2021 SED RATE 76 mm/hr Critically high <=20 The [facility] Comment on above: Performed By: #### S EDR ####[facility] Tvcxgthhdn05[address] [place], [place] [address]Dr. Madelynlorri Leal BNPon 11-24-2021 Natriuretic peptide B (Bld) [Mass/Vol] 65358.0 pg/mL Critically high <=1,800.0 The [facility] Comment on above: Performed By: #### B TEACHER EDUCATION DIRECTOR, CMP, CRP ####[facility] Aqvcbsmwbh004[address] [place], [place] [address]Dr. Madelynlorri Leal CBC AUTO DIFFon 11-24-2021 BASO # 0.0 103/ul Normal 0.0-0.1 [facility] Comment on above: Performed By: #### C BC ####[facility] Jpisepnrtu[address] [place], [place] [address]Dr. Farhat Leal Basophils/100 WBC (Bld) 0.3 % Normal 0.2-2.0 [facility] Comment on above: Performed By: #### C BC ####[facility] Kccegqpjij94[address] [place], [place] [address]Dr. Farhat Leal EO # 0.2 103/ul Normal 0.0-0.7 [facility] Comment on above: Performed By: #### C BC ####[facility] Rjhfzytxyk179[address] [place], [place] [address]Dr. Farhat Leal Eosinophils/100 WBC (Bld) 1.2 % Normal 0.9-7.0 [facility] Comment on above: Performed By: #### C BC ####[facility] Wwenwdftgx587[address] [place], [place] [address]Dr. Farhat Leal Erythrocyte distribution width (RBC) [Ratio] 13.5 % Normal 11.0-15.0 [facility] Comment on above: Performed By: #### C BC ####[facility] Tjozyxkqkq5[address] [place] [address]Dr. Farhat Leal Hematocrit (Bld) [Volume fraction] 31.1 % Critically low 42.0-54.0 [facility] Comment on above: Performed By: #### C BC ####[facility] Adtvksgqfv934[address] [place], [place] [address]Dr. Farhat Leal Hemoglobin (Bld) [Mass/Vol] 10.0 g/dL Critically low 14.0-18.0 [facility] Comment on above: Performed By: #### C BC ####[facility] Ijgvtofatr108[address] [place], [place] [address]Dr. Farhat Leal IG # 0.13 10e3/ul Critically high 0.00-0.03 [facility] Comment on above: Performed By: #### C BC ####[facility] Jugczkfryi[address] [place], [place] [address]Dr. Farhat Leal IG % 1.0 % Critically high 0.0-0.5 The [facility] Comment on above: Performed By: #### C BC ####[facility] Mbamssxulk9765[address] [place], [place] [address]Dr. Farhat Leal LYMPH # 0.7 103/ul Critically low 1.2-3.8 The [facility] Comment on above: Performed By: #### C BC ####[facility] Pvfyzuipri99[address] [place], [place] [address]Dr. Farhat Leal Lymphocytes/100 WBC (Bld) 4.9 % Critically low 20.5-60.0 [facility] Comment on above: Performed By: #### C BC ####[facility] Vhqbehrisz[address] [place], [place] [address]Dr. Farhat Leal MANUAL DIFF REQ NO Normal The [facility] Comment on above: Performed By: #### C BC ####[facility] Wbictrmbtf27[address] [place], [place] [address]Dr. Farhat Leal MCH (RBC) [Entitic mass] 29.6 pg Normal 25.9-34.0 [facility] Comment on above: Performed By: #### C BC ####[facility] Wefksewryw1237 [place] [address]Dr. Farhat Leal MCHC (RBC) [Mass/Vol] 32.2 g/dL Normal 29.9-35.2 [facility] Comment on above: Performed By: #### C BC ####[facility] Uktsbxnwbd8152 [place] [address]Dr. Farhat Leal MCV (RBC) [Entitic vol] 92.0 fL Normal 80.0-94.0 [facility] Comment on above: Performed By: #### C BC ####[facility] Awbkfwfzia9241 [place] [address]Dr. Farhat Leal MONO # 1.3 103/ul Critically high 0.3-0.8 The [facility] Comment on above: Performed By: #### C BC ####[facility] Hmvoldncos867[address] [place], [place] [address]Dr. Farhat Elvis Monocytes/100 WBC (Bld) 9.6 % Normal 1.7-12.0 [facility] Comment on above: Performed By: #### C BC ####[facility] Bdjfljckml377[address] [place], [place] [address]Dr. Farhat Leal NEUT # 11.2 103/ul Critically high 1.4-6.5 [facility] Comment on above: Performed By: #### C BC ####[facility] Pzevunvupp[address] [place], [place] [address]Dr. Farhat Elvis Neutrophils/100 WBC (Bld) 83.0 % Critically high 43.0-75.0 [facility] Comment on above: Performed By: #### C BC ####[facility] Mglqczakos099[address] [place], [place] [address]Dr. Farhat Elvis Platelet mean volume (Bld) [Entitic vol] 9.5 fL Normal 9.5-13.5 [facility] Comment on above: Performed By: #### C BC ####[facility] Cwgkqnujqp2583 [place], [place] [address]De. Farhat Leal PLT 395 103/ul Normal 150-450 [facility] Comment on above: Performed By: #### C BC ####[facility] Hxnglsihns4372 [place], [place] [address]Uz. Farhat Leal RBC 3.38 106/ul Critically low 4.70-6.10 The [facility] Comment on above: Performed By: #### C BC ####[facility] Tkdyflgrhe0294 [place] [id number]. Farhat Leal WBC 13.4 103/ul Critically high 4.0-11.0 [facility] Comment on above: Performed By: #### C BC ####[facility] Sqtfjsfuui8409 [place] [id number]. Farhat Leal CRPon 11-24-2021 CRP 27.8 mg/dL Critically high <=1.0 The [facility] Comment on above: Performed By: #### B TEACHER EDUCATION DIRECTOR, CMP, CRP ####[facility] Umjrviqcpe[address] [place], [place] [address]Dr. Farhat Leal CULTURE ANAEROBICon 11-25-19 22 CULTURE ANAEROBIC Culture Observations : NO GROWTH OF ANAEROBES AT 72 HOURS. [facility] Comment on above: Performed By: #### A NACX ####[facility] C[address]okwzvth[address] [place], [place] [address]Dr. Yilorri Leal CULTURE ANAEROBIC Culture Observations : NO GROWTH OF ANAEROBES AT 72 HOURS. [facility] Comment on above: Performed By: #### A NACX ####[facility] Xkzmanznga257[address] [place], [place] [address]Dr. Yilan Leal CULTURE ANAEROBIC Culture Observations : No growth of anaerobes at 72 hours. [facility] Comment on above: Performed By: #### A NACX ####[facility] Llpimqhnnd64[address] [place], [place] [address]Dr. Yilan Leal CULTURE ANAEROBIC Culture Observations : No growth of anaerobes at 72 hours. [facility] Comment on above: Performed By: #### A NACX ####[facility] Gpvkwvtydj7866[address] [place], [place] [address]Dr. Farhat Leal CULTURE URINEon 11-24-2021 CULTURE URINE Culture Observations : NO GROWTH. Normal The [facility] Comment on above: Performed By: #### U RCX ####[facility] Xmrvbwqeyg69[address] [place], [place] [address]Dr. Farhat Leal ECHOCARDIO M/2D COMPLETEon 1 ECHOCARDIO M/2D COMPLETE Normal [facility] ER URINE PROFILEon Bilirubin Ql (U) Negative Normal NEGATIVE [facility] Comment on above: Performed By: #### E RUR ####[facility] Anhlysgxfa416[address] [place], [place] [address]Dr. Farhat Leal Clarity (U) CLEAR Normal CLEAR [facility] Comment on above: Performed By: #### E RUR ####[facility] Eiilbidhqm2550[address] [place], [place] [address]Dr. Farhat Leal Color (U) YELLOW Normal YELLOW [facility] Comment on above: Performed By: #### E RUR ####[facility] Lfpmmywtkx689[address] [place], [place] [address]Dr. Farhat Leal ERUAHD A micrscopic examination will be performed if indicated. Normal [facility] Comment on above: Performed By: #### E RUR ####[facility] Nsonowxtom833[address] [place], [place] [address]Dr. Farhat Leal Glucose Ql (U) Negative Normal NEGATIVE The [facility] Comment on above: Performed By: #### E RUR ####[facility] Keljfyvecs4675[address] [place], [place] [address]Dr. Farhat Leal Hemoglobin Ql (U) Negative Normal NEGATIVE [facility] Comment on above: Performed By: #### E RUR ####[facility] Tascofzkik135[address] [place], [place] [address]Dr. Farhat Leal Ketones Ql (U) TRACE Abnormal NEGATIVE The [facility] Comment on above: Performed By: #### E RUR ####[facility] Varljcfakt[address] [place], [place] [address]Dr. Farhat Leal LEUKOCYTES Negative Normal NEGATIVE The [facility] Comment on above: Performed By: #### E RUR ####[facility] Krwvlsfuas2899[address] [place], [place] [address]Dr. Farhat Leal Nitrite Ql (U) Negative Normal NEGATIVE The [facility] Comment on above: Performed By: #### E RUR ####[facility] Efipsnzykl2412[address] [place], [place] [address]Dr. Farhat Leal pH (U) 5.5 [pH] Normal 5-9 [facility] Comment on above: Performed By: #### E RUR ####[facility] Ehurjfixxv518[address] [place], [place] [address]Dr. Farhat Leal SPEC GRAVITY 1.015 Normal 1.005-<=1.02 5 [facility] Comment on above: Performed By: #### E RUR ####[facility] Gfgjnmwefu7[address] [place], [place] [address]Dr. Farhat Leal UA PROTEIN Negative Normal NEGATIVE/ TRACE The [facility] Comment on above: Performed By: #### E RUR ####[facility] Vgiduxoadg1134[address] [place], [place] [address]Dr. Farhat Leal UR MICRO IND NOT INDICATED Normal The [facility] Comment on above: Performed By: #### E RUR ####[facility] Qlyhjfjcso[address] [place], [place] [address]Dr. Farhat Leal Urobilinogen Qn (U) 0.2 {Boyd'U}/dL Normal 0.2 - 1. 0 [facility] Comment on above: Performed By: #### E RUR ####[facility] Ygwdpcxboo[address] [place], [place] [address]Dr. Farhat Leal GRAM STAINon 11-24-2021 DIPHTHEROIDS Normal [facility] Comment on above: Performed By: #### G STAIN ####[facility] Lrjfzkgrpp[address] [place], [place] [address]Dr. Farhat Leal EPITHELIALS Normal [facility] Comment on above: Performed By: #### G STAIN ####[facility] Xjdltojuxb[address] [place], [place] [address]Dr. Farhat Leal FUNGAL ELEMENTS Normal [facility] Comment on above: Performed By: #### G STAIN ####[facility] Mgpewmfrso37[address] [place] [address]Dr. Farhat Leal GRAM NEG BACILLI Normal [facility] Comment on above: Performed By: #### G STAIN ####[facility] Dkbuxfsdca67[address] [place] [address]Dr. Farhat Leal GRAM NEG DIPPLOCOCCI Normal [facility] Comment on above: Performed By: #### G STAIN ####[facility] Haxbdmezse58[address] [place] [address]Dr. Farhat Leal GRAM POS BACILLI Normal [facility] Comment on above: Performed By: #### G STAIN ####[facility] Ojllwimkea[address] [place], [place] [address]Dr. Farhat Leal GRAM POSITIVE COCCI FEW Normal [facility] Comment on above: Performed By: #### G STAIN ####[facility] Asymzoduhk[address] [place], [place] [address]Dr. Farhat Leal GRAM STAIN SOURCE RT ACHILLES TENDON Normal [facility] Comment on above: Performed By: #### G STAIN ####[facility] Dxidbsqqnq4[address] [place], [place] [address]Dr. Farhat Leal GS_DIPTH Normal [facility] Comment on above: Performed By: #### G STAIN ####[facility] Bosdlugegq24[address] [place], [place] [address]Dr. Farhat Leal WBC RARE Normal [facility] Comment on above: Performed By: #### G STAIN ####[facility] Xbv[address]idwciu[address] [place] [address]Dr. Farhat Leal COMMENTS NO ORGANISMS OBSERVED Normal [facility] Comment on above: Performed By: #### G STAIN ####[facility] Idhffwyxil[address] [place], [place] [address]Dr. Farhat Leal DIPHTHEROIDS Normal [facility] Comment on above: Performed By: #### G STAIN ####[facility] J[address] [place] [address]Dr. Farhat Leal EPITHELIALS Normal [facility] Comment on above: Performed By: #### G STAIN ####[facility] Wyzrkeudiq[address] [place] [id number]. Farhat Leal FUNGAL ELEMENTS Normal [facility] Comment on above: Performed By: #### G STAIN ####[facility] Ngjwmvvias[address] [place] [id number]. Farhat Leal GRAM NEG BACILLI Normal [facility] Comment on above: Performed By: #### G STAIN ####[facility] Zskupwhpsz[address] [place] [address]Dr. Farhat Leal GRAM NEG DIPPLOCOCCI Normal [facility] Comment on above: Performed By: #### G STAIN ####[facility] Teuvqjsbwu[address] [place] [address]Dr. Farhat Leal GRAM POS BACILLI Normal [facility] Comment on above: Performed By: #### G STAIN ####[facility] Rvxvjmmsxf[address] [place], [place] [address]Dr. Farhat Leal GRAM POSITIVE COCCI Normal [facility] Comment on above: Performed By: #### G STAIN ####[facility] Azibrwjhng280[address] [place], [place] [address]Dr. Farhat Leal GRAM STAIN SOURCE RT CALCANEOUS Normal [facility] Comment on above: Performed By: #### G STAIN ####[facility] Zyplthuejg[address] [place] [address]Dr. Farhat Leal GS_DIPTH Normal [facility] Comment on above: Performed By: #### G STAIN ####[facility] Zxlejzrwmi5[address] [place] [address]Dr. Farhat Leal WBC RARE Normal [facility] Comment on above: Performed By: #### G STAIN ####[facility] Uyttsbsdrd60[address] [place] [address]Dr. Farhat Leal DIPHTHEROIDS Normal [facility] Comment on above: Performed By: #### G STAIN ####[facility] Dpjdyybnzt39[address] [place] [address]Dr. Farhat Leal EPITHELIALS Normal [facility] Comment on above: Performed By: #### G STAIN ####[facility] Lmsdkdwqmr74[address] [place] [id number]. Farhat Leal FUNGAL ELEMENTS Normal [facility] Comment on above: Performed By: #### G STAIN ####[facility] Qcrbcnfvdb7135 [place] [address]Dr. Farhat Leal GRAM NEG BACILLI FEW Normal [facility] Comment on above: Performed By: #### G STAIN ####[facility] Lyujpxfzfx17[address] [place] [address]Dr. Farhat Leal GRAM NEG DIPPLOCOCCI Normal [facility] Comment on above: Performed By: #### G STAIN ####[facility] Lpixvpqthr3750 [place] [address]Dr. Farhat Leal GRAM POS BACILLI Normal [facility] Comment on above: Performed By: #### G STAIN ####[facility] Zrzbqhnlyh2668 [place] [address]Dr. Farhat Lela GRAM POSITIVE COCCI FEW Normal The [facility] Comment on above: Performed By: #### G STAIN ####[facility] Xongacicyz[address]87 [place] [address]Dr. Farhat Leal GRAM STAIN SOURCE #2 Rt foot abscess Normal [facility] Comment on above: Performed By: #### G STAIN ####[facility] Hqwpotqimx1065 [place] [address]Dr. Farhat Leal GS_DIPTH Normal [facility] Comment on above: Performed By: #### G STAIN ####[facility] Egnwjbjcip75[address] [place] [address]Dr. Farhat Leal WBC RARE Normal [facility] Comment on above: Performed By: #### G STAIN ####[facility] Yngsqsywdy25[address] [place] [address]Dr. Farhat Leal DIPHTHEROIDS Normal [facility] Comment on above: Performed By: #### G STAIN ####[facility] Ozngouwmmw2598 [place] [address]Dr. Farhat Leal EPITHELIALS Normal [facility] Comment on above: Performed By: #### G STAIN ####[facility] Shnvcpayzt2286 [place] [address]Dr. Farhat Leal FUNGAL ELEMENTS Normal [facility] Comment on above: Performed By: #### G STAIN ####[facility] Tnpkxszbow5[address] [place] [address]Dr. Farhat Leal GRAM NEG BACILLI FEW Normal [facility] Comment on above: Performed By: #### G STAIN ####[facility] Buykqhgkdp7094 [place] [address]Dr. Farhat Leal GRAM NEG DIPPLOCOCCI Normal [facility] Comment on above: Performed By: #### G STAIN ####[facility] Vcapsekcbw396[address] [place], [place] [address]Dr. Farhat Leal GRAM POS BACILLI Normal [facility] Comment on above: Performed By: #### G STAIN ####[facility] Gkhgxakedi755[address] [place], [place] [address]Dr. Frahat Leal GRAM POSITIVE COCCI FEW Normal The [facility] Comment on above: Performed By: #### G STAIN ####[facility] Dsxkukyhqm[address] [place], [place] [address]Dr. Farhat Leal GRAM STAIN SOURCE #1 Rt foot abscess Normal [facility] Comment on above: Performed By: #### G STAIN ####[facility] Cayrznkfpo934[address] [place], [place] [address]Dr. Farhat Leal GS_DIPTH Normal [facility] Comment on above: Performed By: #### G STAIN ####[facility] Qlctbmtlfr[address] [place], [place] [address]Dr. Farhat Leal WBC NONE SEEN Normal [facility] Comment on above: Performed By: #### G STAIN ####[facility] Tvoghqbsyg7318[address] [place], [place] [address]Dr. Farhat Leal POINT OF CARE GLUCOSEon 10- 0 Glucose [Mass/Vol] 331 mg/dL Critically high 74-106 [facility] Comment on above: Performed By: #### P OCGLUC ####[facility] Jdyyblbeha9526[address] [place], [place] [address]Dr. Farhat Leal Glucose [Mass/Vol] 236 mg/dL Critically high 74-106 [facility] Comment on above: Performed By: #### P OCGLUC ####[facility] Hoovksatoo[address] [place] [address]Dr. Farhat Leal PROF 14(COMP METB)on 022 Albumin [Mass/Vol] 1.6 g/dL Critically low 3.4-5.0 [facility] Comment on above: Performed By: #### B TEACHER EDUCATION DIRECTOR, CMP, CRP ####[facility] Janijifaog0799 [place] [address]Dr. Farhat Leal Albumin/Globulin [Mass ratio] 0.4 {ratio} Normal [facility] Comment on above: Performed By: #### B TEACHER EDUCATION DIRECTOR, CMP, CRP ####[facility] Xuvaztsaug216[address] [place], [place] [address]Dr. Farhat Leal ALP [Catalytic activity/Vol] 94 U/L Normal 46-116 [facility] Comment on above: Performed By: #### B TEACHER EDUCATION DIRECTOR, CMP, CRP ####[facility] Qotenvpkej4944[address] [place], [place] [address]Dr. Farhat Leal ALT [Catalytic activity/Vol] 49 U/L Normal 16-63 [facility] Comment on above: Performed By: #### B TEACHER EDUCATION DIRECTOR, CMP, CRP ####[facility] Frbwpnvjkn4487[address] [place], [place] [address]Dr. Farhat Leal Anion gap [Moles/Vol] 12.5 mmol/L Normal [facility] Comment on above: Performed By: #### B TEACHER EDUCATION DIRECTOR, CMP, CRP ####[facility] Nxjrmptmqr6796 [place] [address]Dr. Farhat Leal AST [Catalytic activity/Vol] 102 U/L Critically high 15-37 [facility] Comment on above: Performed By: #### B TEACHER EDUCATION DIRECTOR, CMP, CRP ####[facility] Fiyxdaxzqw3033[address] [place], [place] [address]Dr. Farhat Leal Bilirubin [Mass/Vol] 0.8 mg/dL Normal 0.2-1.0 [facility] Comment on above: Performed By: #### B TEACHER EDUCATION DIRECTOR, CMP, CRP ####[facility] Bxgqtwpjzd10[address] [place], [place] [address]Dr. Farhat Leal Calcium [Mass/Vol] 8.4 mg/dL Critically low 8.5-10.1 [facility] Comment on above: Performed By: #### B TEACHER EDUCATION DIRECTOR, CMP, CRP ####[facility] Liceegeeem4607 [place] [address]Dr. Farhat Leal Chloride [Moles/Vol] 96 mmol/L Critically low 98-107 [facility] Comment on above: Performed By: #### B TEACHER EDUCATION DIRECTOR, CMP, CRP ####[facility] Ixjzgubzgq714[address] [place], [place] [address]Dr. Farhat Leal CO2 [Moles/Vol] 24.8 mmol/L Normal 21.0-32.0 [facility] Comment on above: Performed By: #### B TEACHER EDUCATION DIRECTOR, CMP, CRP ####[facility] Opjqrziley9312[address] [place], [place] [address]Dr. Farhat Leal Creatinine [Mass/Vol] 1.36 mg/dL Critically high 0.70-1.30 [facility] Comment on above: Performed By: #### B TEACHER EDUCATION DIRECTOR, CMP, CRP ####[facility] Dnmmnhlgiq6350[address] [place], [place] [address]Dr. Farhat Leal EGFR-AF PORTUGUESE >60 Normal >=60 [facility] Comment on above: Performed By: #### B TEACHER EDUCATION DIRECTOR, CMP, CRP ####[facility] Rwpjtjhenv[address] [place], [place] [address]Dr. Farhat Leal EGFR-NON AF PORTUGUESE 51 mL/min/1.73m2 Critically low >=60 [facility] Comment on above: Performed By: #### B TEACHER EDUCATION DIRECTOR, CMP, CRP ####[facility] Nvqobxbjmu5264 [place] [address]Dr. Farhat Leal Globulin (S) [Mass/Vol] 4.1 g/dL Normal [facility] Comment on above: Performed By: #### B TEACHER EDUCATION DIRECTOR, CMP, CRP ####[facility] Gpcuddsfsn6915[address] [place], [place] [address]Dr. Farhat Leal Glucose [Mass/Vol] 204 mg/dL Critically high 74-106 T [facility] Comment on above: Performed By: #### B TEACHER EDUCATION DIRECTOR, CMP, CRP ####[facility] Uuxkudiagf[address] [place] [address]Dr. Madelynlorri Leal Potassium [Moles/Vol] 4.3 mmol/L Normal 3.5-5.1 [facility] Comment on above: Performed By: #### B TEACHER EDUCATION DIRECTOR, CMP, CRP ####[facility] Vsutqntxdc8914 [place] [address]Dr. Madelynlorri Leal Protein [Mass/Vol] 5.7 g/dL Critically low 6.4-8.2 Th [facility] Comment on above: Performed By: #### B TEACHER EDUCATION DIRECTOR, CMP, CRP ####[facility] Ppbpskgkqo7948[address] [place], [place] [address]Dr. Farhat Leal Sodium [Moles/Vol] 129 mmol/L Critically low 136-145 [facility] Comment on above: Performed By: #### B TEACHER EDUCATION DIRECTOR, CMP, CRP ####[facility] Ogmnuwcacm[address] [place], [place] [address]Dr. Farhat Leal Urea nitrogen [Mass/Vol] 41.0 mg/dL Critically high 7.0-18.0 [facility] Comment on above: Performed By: #### B TEACHER EDUCATION DIRECTOR, CMP, CRP ####[facility] Nozuilgtfw18[address] [place], [place] [address]Dr. Madelynlorri Elvis Urea nitrogen/Creatinine [Mass ratio] 30.1 mg/mg Normal [facility] Comment on above: Performed By: #### B TEACHER EDUCATION DIRECTOR, CMP, CRP ####[facility] Klgazrnxju628[address] [place], [place] [address]Dr. Farhat Leal PROTIMEon 11-24-2021 INR Coag (PPP) [Relative time] 2.20 {INR} Normal [facility] Comment on above: Performed By: #### P T ####[facility] Jimnbrgyhn0699[address] [place], [place] [address]Dr. Farhat Leal INR GUIDELINES SEE BELOW Normal [facility] Comment on above: Result Comment: MALINA RED INR: 2.0 - 3.0 CONDITIONS NOT LISTED BELOW 2.5 - 3.5 FOR PROSTHETIC HEART VALVE REPLACEMENT 2.5 - 3.5 RECURRENT THROMBOSIS Performed By: #### P T ####[facility] Dqegyvqjle33[address] [place] [address]Dr. Farhat Leal PT Coag (PPP) [Time] 22.6 s Critically high 9.0-11.6 [facility] Comment on above: Performed By: #### P T ####[facility] Efwnbkwdok7243 [place] [id number]. Farhat Leal SED RATE [facility] 2021 SED RATE 80 mm/hr Critically high <=20 [facility] Comment on above: Performed By: #### S EDR ####[facility] Bshmrnorye6[address] [place], [place] [address]Dr. Farhat Elvis BLOOD CULTURE ID PANELon A. baumannii Not detected Normal NOT DETECTED [facility] Comment on above: Performed By: #### B CID2 ####[facility] Hzfuukljtg5077[address] [place], [place] [address]Dr. Farhat Leal Bacteriodes fragilis Not detected Normal NOT DETECTED [facility] Comment on above: Performed By: #### B CID2 ####[facility] Pygbdghxse101[address] [place], [place] [address]Dr. Farhat Elvis BCID CONTROLS PASSED Normal [facility] Comment on above: Performed By: #### B CID2 ####[facility] Yviffewbsx73[address] [place], [place] [address]Dr. Farhat Leal BCIDBTHD BLOOD CULTURE BOTTLE INFORMATION Normal [facility] Comment on above: Performed By: #### B CID2 ####[facility] Jszalidflg[address] [place], [place] [address]Dr. Farhat Elvis BCIDHD1 ANTIMICROBIAL RESISTANCE GENES Normal [facility] Comment on above: Performed By: #### B CID2 ####[facility] Hbmpvpkxxq7524[address] [place], [place] [address]Dr. Madelynlorri Leal BCIDHD2 SEE BELOW Normal [facility] Comment on above: Result Comment: Note : Antimicrobial resitance can occur via multiple mechanisms. A Not Detected result for the [employer] antomicrobial resistance gene assays does not indicate antimicrobial susceptibility. Subculturing is required for species identification and susceptibility testing of isolates. Performed By: #### B CID2 ####[facility] Nihdwwjosu86[address] [place] [address]Dr. Farhat Leal BCIDHD3 Positive Normal [facility] Comment on above: Performed By: #### B CID2 ####[facility] Zhwowaitfd4987 [place] [address]Dr. Farhat Lael BCIDHD4 Negative Normal [facility] Comment on above: Performed By: #### B CID2 ####[facility] Wtrpdkhnuf8245 [place] [address]Dr. Farhat Leal BCIDHD5 YEAST Normal [facility] Comment on above: Performed By: #### B CID2 ####[facility] Ahepxwolhl20[address] [place], [place] [address]Dr. Farhat Leal Bottle Set: Set 1 Normal [facility] Comment on above: Performed By: #### B CID2 ####[facility] Udlhtoqkhp0936[address] [place], [place] [address]Dr. Farhat Leal Bottle: Aerobic Normal [facility] Comment on above: Performed By: #### B CID2 ####[facility] Ttiilhzjfq296[address] [place], [place] [address]Dr. Fahrat [facility] C. neoformans/gattii Not detected Normal NOT DETECTED [facility] Comment on above: Performed By: #### B CID2 ####[facility] Sbwlfrdhhq955[address] [place], [place] [address]Dr. Yilorri [facility] Disha albicans Not detected Normal NOT DETECTED [facility] Comment on above: Performed By: #### B CID2 ####[facility] Bbsbvxusza489[address] [place], [place] [address]Dr. Yilorri Leal Disha auris Not detected Normal NOT DETECTED The [facility] Comment on above: Performed By: #### B CID2 ####[facility] Lkuasxgmgk105[address] [place], [place] [address]Dr. Yilorri [facility] Disha glabrata Not detected Normal NOT DETECTED [facility] Comment on above: Performed By: #### B CID2 ####[facility] Dabexfmbzk005[address] [place], [place] [address]Dr. Farhat Leal Disha Krusei Not detected Normal NOT DETECTED [facility] Comment on above: Performed By: #### B CID2 ####[facility] Fsrdgawtmu368[address] [place], [place] [address]Dr. Farhat Leal Disha Parapsilosis Not detected Normal NOT DETECTED [facility] Comment on above: Performed By: #### B CID2 ####[facility] Mtemwkukvu11[address] [place], [place] [address]Dr. Farhat Leal Disha Tropicalis Not detected Normal NOT DETECTED [facility] Comment on above: Performed By: #### B CID2 ####[facility] Pwgdyvqoxo6613[address] [place], [place] [address]Dr. Madelynlorri Leal CTX-M Resistant Gene Not Applicable Normal NOT DETECTE D [facility] Comment on above: Performed By: #### B CID2 ####[facility] Jaclddntjz1168[address] [place], [place] [address]Dr. Farhat Leal E. Cloacae complex Not detected Normal NOT DETECTED [facility] Comment on above: Performed By: #### B CID2 ####[facility] Xxoluaioht447[address] [place], [place] [address]Dr. Farhat Leal E. faecalis Not detected Normal NOT DETECTED The [facility] Comment on above: Performed By: #### B CID2 ####[facility] Ftehjraapy199[address] [place], [place] [address]Dr. Farhat Leal E. faecium Not detected Normal NOT DETECTED The [facility] Comment on above: Performed By: #### B CID2 ####[facility] Adlswvwxcu211[address] [place], [place] [address]Dr. Farhat Leal Enterobacteriaceae Not detected Normal NOT DETECTED [facility] Comment on above: Performed By: #### B CID2 ####[facility] Adyzjmhlbp9624[address] [place], [place] [address]Dr. Farhat Leal Escherichia coli Not detected Normal NOT DETECTED [facility] Comment on above: Performed By: #### B CID2 ####[facility] Yzhbuwipiu0514[address] [place], [place] [address]Dr. Madelynlorri Leal H. influenzae Not detected Normal NOT DETECTED [facility] Comment on above: Performed By: #### B CID2 ####[facility] Bkxvausvcm913[address] [place], [place] [address]Dr. Farhat Leal IMP Resistant Gene Not Applicable Normal NOT DETECTED [facility] Comment on above: Performed By: #### B CID2 ####[facility] Orpzlhttnw7624[address] [place], [place] [address]Dr. Farhat Leal K. oxytoca Not detected Normal NOT DETECTED The [facility] Comment on above: Performed By: #### B CID2 ####[facility] Bfxbucibsy1834[address] [place], [place] [address]Dr. Farhat Leal K. pneumoniae Not detected Normal NOT DETECTED [facility] Comment on above: Performed By: #### B CID2 ####[facility] Wttjvvlnby8569[address] [place], [place] [address]Dr. Madelynlorri Leal Klebsiella aerogenes Not detected Normal NOT DETECTED [facility] Comment on above: Performed By: #### B CID2 ####[facility] Ubexbrldmo464[address] [place], [place] [address]Dr. Farhat Leal KPC Resistant Gene Not Applicable Normal NOT DETECTED [facility] Comment on above: Performed By: #### B CID2 ####[facility] Gpkqlodccw749[address] [place], [place] [address]Dr. Farhat Leal List. monocytogenes Not detected Normal NOT DETECTED [facility] Comment on above: Performed By: #### B CID2 ####[facility] Vzuowgakki[address] [place], [place] [address]Dr. Farhat Leal Mcr-1 Resistant Gene Not Applicable Normal NOT DETECTE D [facility] Comment on above: Performed By: #### B CID2 ####[facility] Xhdeqcdpeo969[address] [place], [place] [address]Dr. Madelynlan Elvis mecA/C Not Applicable Normal NOT DETECTED [facility] Comment on above: Performed By: #### B CID2 ####[facility] Xteijmiqcn7709[address] [place], [place] [address]Dr. Farhat Leal mecA/C MREJ Detected Abnormal NOT DETECTED [facility] Comment on above: Performed By: #### B CID2 ####[facility] Drbvtrsbgv6412[address] [place], [place] [address]Dr. Farhat Leal N. meningitidis Not detected Normal NOT DETECTED The [facility] Comment on above: Performed By: #### B CID2 ####[facility] Gukycrarxi608[address] [place], [place] [address]Dr. Farhat Leal NDM Resistant Gene Not Applicable Normal NOT DETECTED [facility] Comment on above: Performed By: #### B CID2 ####[facility] Lyvazqhffz7066[address] [place], [place] [address]Dr. Farhat Leal Oxa-48-like Not Applicable Normal NOT DETECTED [facility] Comment on above: Performed By: #### B CID2 ####[facility] Wbtuexglsm2384[address] [place], [place] [address]Dr. Farhat Leal Proteus Not detected Normal NOT DETECTED The [facility] Comment on above: Performed By: #### B CID2 ####[facility] Qsoyhkvxae9520[address] [place], [place] [address]Dr. Farhat Leal Pseud. aeruginosa Not detected Normal NOT DETECTED [facility] Comment on above: Performed By: #### B CID2 ####[facility] Sbfzwfwwdg5512[address] [place], [place] [address]Dr. Farhat Leal S. maltophilia Not detected Normal NOT DETECTED [facility] Comment on above: Performed By: #### B CID2 ####[facility] Gwhqjzvdyq15[address] [place], [place] [address]Dr. Farhat Leal Salmonella Not detected Normal NOT DETECTED The [facility] Comment on above: Performed By: #### B CID2 ####[facility] Wkxnggijhc20[address] [place], [place] [address]Dr. Farhat Leal Seratia marcescens Not detected Normal NOT DETECTED [facility] Comment on above: Performed By: #### B CID2 ####[facility] Hlkqfhoaio73[address] [place], [place] [address]Dr. Farhat Leal Site: Rt Hand Normal [facility] Comment on above: Performed By: #### B CID2 ####[facility] Hupbpugujl656[address] [place], [place] [address]Dr. Farhat Leal Staph. aureus Detected Abnormal NOT DETECTED The [facility] Comment on above: Performed By: #### B CID2 ####[facility] Thatukjudk713[address] [place], [place] [address]Dr. Farhat Leal Staph. epidermidis Not detected Normal NOT DETECTED [facility] Comment on above: Performed By: #### B CID2 ####[facility] Vxrnbcqfts037[address] [place], [place] [address]Dr. Farhat Leal Staph. lugdunensis Not detected Normal NOT DETECTED [facility] Comment on above: Performed By: #### B CID2 ####[facility] Swhyreskll06[address] [place], [place] [address]Dr. Farhat Leal Staphylococcus Detected Abnormal NOT DETECTED [facility] Comment on above: Performed By: #### B CID2 ####[facility] Yhdgflxkeg14[address] [place], [place] [address]Dr. Farhat Leal Strep. agalactiae Not detected Normal NOT DETECTED [facility] Comment on above: Performed By: #### B CID2 ####[facility] Qqvwwplsbh52[address] [place], [place] [address]Dr. Farhat Leal Strep. pneumoniae Not detected Normal NOT DETECTED [facility] Comment on above: Performed By: #### B CID2 ####[facility] Nfrmaveoky[address] [place], [place] [address]Dr. Farhat Leal Strep. pyogenes Not detected Normal NOT DETECTED The [facility] Comment on above: Performed By: #### B CID2 ####[facility] Juyfolzesj[address] [place], [place] [address]Dr. Farhat Leal Streptococcus Not detected Normal NOT DETECTED The [facility] Comment on above: Performed By: #### B CID2 ####[facility] Cdtggpbych[address] [place], [place] [address]Dr. Farhat Leal Teodoro/B Resist. Gene Not Applicable Normal NOT DETECTED [facility] Comment on above: Performed By: #### B CID2 ####[facility] Dgirbhojyo188[address] [place], [place] [address]Dr. Farhat Leal VIM Resistant Gene Not Applicable Normal NOT DETECTED [facility] Comment on above: Performed By: #### B CID2 ####[facility] [address]xc[address] [place] [address]Dr. Farhat Leal BNPon 11-23-2021 Natriuretic peptide B (Bld) [Mass/Vol] 59429.0 pg/mL Critically high <=1,800.0 [facility] Comment on above: Performed By: #### C MP, CMADM, BNP ####[facility] Fdsflxfpkp[address] [place] [address]Dr. Farhat Leal CARDIAC AMANDA ADMITon 022 CK [Catalytic activity/Vol] 41 U/L Normal 39-308 [facility] Comment on above: Performed By: #### C MP, CMADM, BNP ####[facility] Tgbjrfafli[address] [place] [address]Dr. Farhat Leal CK.MB [Mass/Vol] 0.98 ng/mL Normal <=3.60 [facility] Comment on above: Performed By: #### C MP, CMADM, BNP ####[facility] Rknqhdpvye[address] [place] [address]Dr. Farhat Leal HSTROP 30.1 pg/mL Normal 4.0-76.1 [facility] Comment on above: Result Comment: CUT- OFF POINTS HAVE BEEN ESTABLISHED BASED ON THE FOURTH UNIVERSAL DEFINITIONS OF MYOCARDIALINFARCTION. THE UPPER REFERENCE LIMIT (URL) OF TROPONIN, DEFINED THE 99TH PERCENTILE OFcTnI DISTRIBUTION IN A REFERENCE POPULATION, HAS BEEN CONFIRMED THE DECISION THRESHOLDFOR GA DIAGNOSIS. Performed By: #### C MP, CMADM, BNP ####[facility] Fpsnisqopc[address] [place] [address]Dr. Farhat Leal VALERIA 160 ng/mL Critically high 16-96 The [facility] Comment on above: Performed By: #### C MP, CMADM, BNP ####[facility] Irzpvxgatc[address] [place] [address]Dr. Farhat Leal CBC AUTO DIFFon 11-23-2021 BASO # 0.0 103/ul Normal 0.0-0.1 [facility] Comment on above: Performed By: #### C BC ####[facility] Tpuyoozuvi[address] [place] [id number]. Farhat Leal Basophils/100 WBC (Bld) 0.2 % Normal 0.2-2.0 [facility] Comment on above: Performed By: #### C BC ####[facility] Lcrehhmeml[address] [place], [place] [address]Dr. Farhat Leal EO # 0.0 103/ul Normal 0.0-0.7 [facility] Comment on above: Performed By: #### C BC ####[facility] Muhvttllpx8[address] [place], [place] [address]Dr. Farhat Leal Eosinophils/100 WBC (Bld) 0.1 % Critically low 0.9-7.0 [facility] Comment on above: Performed By: #### C BC ####[facility] Bcmdubsbjl7739[address] [place], [place] [address]Dr. Farhat Leal Erythrocyte distribution width (RBC) [Ratio] 13.4 % Normal 11.0-15.0 [facility] Comment on above: Performed By: #### C BC ####[facility] Wtykqssbxs[address] [place], [place] [address]Dr. Farhat Leal Hematocrit (Bld) [Volume fraction] 31.6 % Critically low 42.0-54.0 [facility] Comment on above: Performed By: #### C BC ####[facility] Cnojoionsg[address] [place], [place] [address]Dr. Farhat Leal Hemoglobin (Bld) [Mass/Vol] 10.4 g/dL Critically low 14.0-18.0 [facility] Comment on above: Performed By: #### C BC ####[facility] Kpdvkcinak264[address] [place], [place] [address]Dr. Farhat Leal IG # 0.11 10e3/ul Critically high 0.00-0.03 [facility] Comment on above: Performed By: #### C BC ####[facility] Cqswhiaxqu53[address] [place], [place] [address]Dr. Farhat Leal IG % 0.7 % Critically high 0.0-0.5 [facility] Comment on above: Performed By: #### C BC ####[facility] Rceloadpql[address] [place] [address]Dr. Farhat Leal LYMPH # 0.5 103/ul Critically low 1.2-3.8 [facility] Comment on above: Performed By: #### C BC ####[facility] Xfjiyyvhwb6035 [place] [address]Dr. Farhat Leal Lymphocytes/100 WBC (Bld) 2.8 % Critically low 20.5-60.0 [facility] Comment on above: Performed By: #### C BC ####[facility] Ktwgzhnrnd5614 [place] [address]Dr. Farhat Leal MANUAL DIFF REQ NO Normal [facility] Comment on above: Performed By: #### C BC ####[facility] Swhpyeywqb49[address] [place], [place] [address]Dr. Farhat Leal MCH (RBC) [Entitic mass] 29.8 pg Normal 25.9-34.0 [facility] Comment on above: Performed By: #### C BC ####[facility] Uymlnrrnmc5[address] [place], [place] [address]Dr. Farhat Leal MCHC (RBC) [Mass/Vol] 32.9 g/dL Normal 29.9-35.2 [facility] Comment on above: Performed By: #### C BC ####[facility] Vubomocskv18[address] [place] [address]Dr. Farhat Leal MCV (RBC) [Entitic vol] 90.5 fL Normal 80.0-94.0 [facility] Comment on above: Performed By: #### C BC ####[facility] Kxheeybnzm6847[address] [place], [place] [address]Dr. Farhat Leal MONO # 1.3 103/ul Critically high 0.3-0.8 The [facility] Comment on above: Performed By: #### C BC ####[facility] Zlyvyjldha0665 [place] [address]Dr. Farhat Leal Monocytes/100 WBC (Bld) 8.3 % Normal 1.7-12.0 [facility] Comment on above: Performed By: #### C BC ####[facility] Ckzwizvetx0172 [place] [address]Dr. Farhat Leal NEUT # 13.9 103/ul Critically high 1.4-6.5 [facility] Comment on above: Performed By: #### C BC ####[facility] Jsvnythawz2769 [place] [address]Dr. Farhat Leal Neutrophils/100 WBC (Bld) 87.9 % Critically high 43.0-75.0 [facility] Comment on above: Performed By: #### C BC ####[facility] Twvcxykslk6610 [place] [address]Dr. Farhat Leal Platelet mean volume (Bld) [Entitic vol] 9.3 fL Critically low 9.5-13.5 [facility] Comment on above: Performed By: #### C BC ####[facility] Sjcldvyhtu64[address] [place], [place] [address]Dr. Farhat Leal PLT 390 103/ul Normal 150-450 [facility] Comment on above: Performed By: #### C BC ####[facility] Bekdjrypov3860[address] [place], [place] [address]Dr. Farhat Leal RBC 3.49 106/ul Critically low 4.70-6.10 [facility] Comment on above: Performed By: #### C BC ####[facility] Ktzejinorn65[address] [place] [id number]. Farhat Leal WBC 15.9 103/ul Critically high 4.0-11.0 [facility] Comment on above: Performed By: #### C BC ####[facility] Zpwvytosta9[address] [place], [place] [address]Dr. Farhat Leal CT HEAD WO CONon 11-23-2021 CT HEAD WO CON Normal [facility] CULTURE BLOODon 11-23-2021 Microscopic examination of blood, culture Culture Observations: NO GROWTH AT 5 DAYS. Normal [facility] Comment on above: Performed By: #### B LDCX2 ####[facility] Pfmvygomgb[address] [place], [place] [address]Dr. Farhat Leal Covid-19 PCR (CVDTB)on SARS-CoV-2 (COVID-19) RNA JOSH+probe Ql (Unsp spec) Not detected Normal NOT DETECTED [facility] Comment on above: Result Comment: When [...] for this test is supported by the [place] of Health and Human Service's declaration that [...] be used). Performed By: #### C VDTBH ####[facility] Igvklvqeaa4[address] [place], [place] [address]Dr. Farhat Leal LACTATE/LACTIC ACIDon 2021 Lactate [Moles/Vol] 1.3 mmol/L Normal 0.4-1.9 [facility] Comment on above: Performed By: #### L ACT ####[facility] Eyeeahynml[address] [place], [place] [address]Dr. Farhat Leal Lactate [Moles/Vol] 1.3 mmol/L Normal 0.4-1.9 The [facility] Comment on above: Performed By: #### L ACT ####[facility] Vrjxuvtwhn[address] [place], [place] [address]Dr. Farhat Leal POINT OF CARE GLUCOSEon Glucose [Mass/Vol] 252 mg/dL Critically high 74-106 [facility] Comment on above: Performed By: #### P OCGLUC ####[facility] Clklorkhxn3[address] [place] [address]Dr. Farhat Leal PROF 14(COMP METB)on 022 Albumin [Mass/Vol] 1.6 g/dL Critically low 3.4-5.0 [facility] Comment on above: Performed By: #### C MP, CMADM, BNP ####[facility] Pijyskcmya[address] [place] [address]Dr. Farhat Leal Albumin/Globulin [Mass ratio] 0.4 {ratio} Normal [facility] Comment on above: Performed By: #### C MP, CMADM, BNP ####[facility] Rjxuqiuxvo6031 [place] [address]Dr. Farhat Leal ALP [Catalytic activity/Vol] 98 U/L Normal 46-116 [facility] Comment on above: Performed By: #### C MP, CMADM, BNP ####[facility] Jdogqfawjx26[address] [place] [address]Dr. Farhat Leal ALT [Catalytic activity/Vol] 52 U/L Normal 16-63 [facility] Comment on above: Performed By: #### C MP, CMADM, BNP ####[facility] Fpcfyckewy2965 [place] [address]Dr. Farhat Leal Anion gap [Moles/Vol] 9.8 mmol/L Normal [facility] Comment on above: Performed By: #### C MP, CMADM, BNP ####[facility] Dudnwqetvz3053 [place] [address]Dr. Farhat Leal AST [Catalytic activity/Vol] 122 U/L Critically high 15-37 [facility] Comment on above: Performed By: #### C MP, CMADM, BNP ####[facility] Vrruarmfoi7031 [place] [address]Dr. Farhat Leal Bilirubin [Mass/Vol] 0.7 mg/dL Normal 0.2-1.0 [facility] Comment on above: Performed By: #### C MP, CMADM, BNP ####[facility] Jdyhqwolaa3654 [place] [address]Dr. Farhat Leal Calcium [Mass/Vol] 8.6 mg/dL Normal 8.5-10.1 [facility] Comment on above: Performed By: #### C MP, CMADM, BNP ####[facility] Dugghsakte3085 [place] [address]Dr. Farhat Leal Chloride [Moles/Vol] 95 mmol/L Critically low 98-107 [facility] Comment on above: Performed By: #### C MP, CMADM, BNP ####[facility] Iftwkavxhw8287 [place] [address]Dr. Farhat Leal CO2 [Moles/Vol] 29.6 mmol/L Normal 21.0-32.0 [facility] Comment on above: Performed By: #### C MP, CMADM, BNP ####[facility] Abgxdnnevu17[address] [place], [place] [address]Dr. Farhat Leal Creatinine [Mass/Vol] 1.49 mg/dL Critically high 0.70-1.30 [facility] Comment on above: Performed By: #### C MP, CMADM, BNP ####[facility] Kwraxlztue37[address] [place], [place] [address]Dr. Farhat Leal EGFR-AF PORTUGUESE 55 mL/min/1.73m2 Critically low >=60 [facility] Comment on above: Performed By: #### C MP, CMADM, BNP ####[facility] Xcwqboscfl[address] [place], [place] [address]Dr. Farhat Leal EGFR-NON AF [place]UGUESE 46 mL/min/1.73m2 Critically low >=60 [facility] Comment on above: Performed By: #### C MP, CMADM, BNP ####[facility] Olgmwetlim6[address] [place] [address]Dr. Farhat Leal Globulin (S) [Mass/Vol] 4.3 g/dL Normal [facility] Comment on above: Performed By: #### C MP, CMADM, BNP ####[facility] Judgvyzlgt4455 [place] [address]Dr. Farhat Leal Glucose [Mass/Vol] 213 mg/dL Critically high 74-106 [facility] Comment on above: Performed By: #### C MP, CMADM, BNP ####[facility] Yhycfvnzdr1434 [place] [address]Dr. Farhat Leal Potassium [Moles/Vol] 4.4 mmol/L Normal 3.5-5.1 [facility] Comment on above: Performed By: #### C MP, CMADM, BNP ####[facility] Jqqcupbxbv2311 [place] [address]Dr. Farhat Leal Protein [Mass/Vol] 5.9 g/dL Critically low 6.4-8.2 [facility] Comment on above: Performed By: #### C MP, CMADM, BNP ####[facility] Oxsmmwrdji[address] [place], [place] [address]Dr. Farhat Leal Sodium [Moles/Vol] 130 mmol/L Critically low 136-145 [facility] Comment on above: Performed By: #### C MP, CMADM, BNP ####[facility] Vhwvocsksv[address] [place], [place] [address]Dr. Farhat Leal Urea nitrogen [Mass/Vol] 46.0 mg/dL Critically high 7.0-18.0 [facility] Comment on above: Performed By: #### C MP, CMADM, BNP ####[facility] Rtzcuppkfs104[address] [place], [place] [address]Dr. Farhat Leal Urea nitrogen/Creatinine [Mass ratio] 30.9 mg/mg Normal [facility] Comment on above: Performed By: #### C MP, CMADM, BNP ####[facility] Ymyisljstu38[address] [place], [place] [address]Dr. Madelynlorri Leal PROTIMEon 11-23-2021 INR Coag (PPP) [Relative time] 2.55 {INR} Normal [facility] Comment on above: Performed By: #### P TT, PT ####[facility] Kevrhznodx1524[address] [place], [place] [address]Dr. Madelynlorri Leal INR GUIDELINES SEE BELOW Normal [facility] Comment on above: Result Comment: MALINA RED INR: 2.0 - 3.0 CONDITIONS NOT LISTED BELOW 2.5 - 3.5 FOR PROSTHETIC HEART VALVE REPLACEMENT 2.5 - 3.5 RECURRENT THROMBOSIS Performed By: #### P TT, PT ####[facility] Opdnyzndav48[address] [place] [address]Dr. Farhat Leal PT Coag (PPP) [Time] 25.9 s Critically high 9.0-11.6 [facility] Comment on above: Performed By: #### P TT, PT ####[facility] Wcftfdsdrt40[address] [place], [place] [address]Dr. Farhat Leal PTTon 11-23-2021 aPTT Coag (Bld) [Time] 39.9 s Critically high 22.3-36. 2 [facility] Comment on above: Performed By: #### P TT, PT ####[facility] Gkbsrxfrwh674[address] [place], [place] [address]Dr. Farhat Leal XR CHEST 1 Von 11-23-2021 XR CHEST 1 V Normal [facility] XR HEEL RT 2Von 11-23-2021 XR HEEL RT 2V Normal [facility] XR FOOT RT MIN 3 VIEWSon XR FOOT RT MIN 3 VIEWS Normal [facility] US ARTERY LEG RTon US ARTERY LEG RT Normal [facility] CBC AUTO DIFFon 09-24-2021 BASO # 0.1 103/ul Normal 0.0-0.1 [facility] Comment on above: Performed By: #### C BC ####[facility] Arqfyerqfs57[address] [place], [place] [address]Dr. Madelynlorri Leal Basophils/100 WBC (Bld) 0.7 % Normal 0.2-2.0 [facility] Comment on above: Performed By: #### C BC ####[facility] Riyfibdcpb5867[address] [place], [place] [address]Dr. Farhat Leal EO # 0.3 103/ul Normal 0.0-0.7 [facility] Comment on above: Performed By: #### C BC ####[facility] Fthoaxaiul9325[address] [place], [place] [address]Dr. Madelynlorri Leal Eosinophils/100 WBC (Bld) 3.9 % Normal 0.9-7.0 [facility] Comment on above: Performed By: #### C BC ####[facility] Xoyzbtsexn6738 [place] [address]Dr. Farhat Leal Erythrocyte distribution width (RBC) [Ratio] 12.6 % Normal 11.0-15.0 [facility] Comment on above: Performed By: #### C BC ####[facility] Fenzjipiba5[address] [place] [address]Dr. Farhat Leal Hematocrit (Bld) [Volume fraction] 38.9 % Critically low 42.0-54.0 [facility] Comment on above: Performed By: #### C BC ####[facility] Grvecykogo[address] [place], [place] [address]Dr. Farhat Leal Hemoglobin (Bld) [Mass/Vol] 12.8 g/dL Critically low 14.0-18.0 [facility] Comment on above: Performed By: #### C BC ####[facility] Ibpygbdhdg357[address] [place], [place] [address]Dr. Farhat Leal IG # 0.10 10e3/ul Critically high 0.00-0.03 [facility] Comment on above: Performed By: #### C BC ####[facility] Kugmrrcbcz[address] [place], [place] [address]Dr. Farhat Leal IG % 1.2 % Critically high 0.0-0.5 [facility] Comment on above: Performed By: #### C BC ####[facility] Hxjondbezy58[address] [place], [place] [address]Dr. Farhat Leal LYMPH # 2.1 103/ul Normal 1.2-3.8 [facility] Comment on above: Performed By: #### C BC ####[facility] Sikjyewerf266[address] [place], [place] [address]Dr. Farhat Leal Lymphocytes/100 WBC (Bld) 25.9 % Normal 20.5-60.0 [facility] Comment on above: Performed By: #### C BC ####[facility] Ppvbbkoybk[address] [place], [place] [address]Dr. Farhat Leal MANUAL DIFF REQ NO Normal [facility] Comment on above: Performed By: #### C BC ####[facility] Czonjlrrgy15[address] [place] [id number]. Farhat Leal MCH (RBC) [Entitic mass] 31.1 pg Normal 25.9-34.0 [facility] Comment on above: Performed By: #### C BC ####[facility] Mqedwzjphh2[address] [place] [id number]. Farhat Leal MCHC (RBC) [Mass/Vol] 32.9 g/dL Normal 29.9-35.2 [facility] Comment on above: Performed By: #### C BC ####[facility] Yisdvetinn[address]879 [place] [address]Dr. Farhat Elvis MCV (RBC) [Entitic vol] 94.6 fL Critically high 80.0-94.0 [facility] Comment on above: Performed By: #### C BC ####[facility] Boccqmkryq998[address] [place], [place] [address]Dr. Farhat Leal MONO # 1.2 103/ul Critically high 0.3-0.8 [facility] Comment on above: Performed By: #### C BC ####[facility] Hvjgihtiws[address] [place], [place] [address]Dr. Madelynlorri Leal Monocytes/100 WBC (Bld) 14.1 % Critically high 1.7-12.0 [facility] Comment on above: Performed By: #### C BC ####[facility] Bazgxhbzle34[address] [place], [place] [address]Dr. Farhat Leal NEUT # 4.4 103/ul Normal 1.4-6.5 [facility] Comment on above: Performed By: #### C BC ####[facility] S[address]clirqeuj[address] [place], [place] [address]Dr. Madelynlorri Leal Neutrophils/100 WBC (Bld) 54.2 % Normal 43.0-75.0 [facility] Comment on above: Performed By: #### C BC ####[facility] Uwufxgfqbc50[address] [place], [place] [address]Dr. Farhat Leal Platelet mean volume (Bld) [Entitic vol] 9.9 fL Normal 9.5-13.5 [facility] Comment on above: Performed By: #### C BC ####[facility] Uxslinueye8144 [place] [id number]. Farhat Elvis PLT 224 103/ul Normal 150-450 [facility] Comment on above: Performed By: #### C BC ####[facility] Dzhnwqpjcc2[address] [place] [id number]. Farhat Elvis RBC 4.11 106/ul Critically low 4.70-6.10 [facility] Comment on above: Performed By: #### C BC ####[facility] Kejrvtzphz5[address] [place] [id number]. Farhat Elvis WBC 8.2 103/ul Normal 4.0-11.0 [facility] Comment on above: Performed By: #### C BC ####[facility] Tqytmngfrn[address] [place] [address]Dr. Farhat Leal PROF CHEM 8 (BAS METB)on Anion gap [Moles/Vol] 9.6 mmol/L Normal [facility] Comment on above: Performed By: #### B MP ####[facility] Nsnuynmdhy7626 [place] [id number]. Farhat Leal Calcium [Mass/Vol] 8.6 mg/dL Normal 8.5-10.1 [facility] Comment on above: Performed By: #### B MP ####[facility] Wzydiugglf1701 [place] [id number]. Farhat Leal Chloride [Moles/Vol] 94 mmol/L Critically low 98-107 [facility] Comment on above: Performed By: #### B MP ####[facility] Yqlyiguith2853 [place] [id number] Leal CO2 [Moles/Vol] 28.1 mmol/L Normal 21.0-32.0 [facility] Comment on above: Performed By: #### B MP ####[facility] Boruoqrqqn2337 [place] [id number] Leal Creatinine [Mass/Vol] 1.91 mg/dL Critically high 0.70-1.30 [facility] Comment on above: Performed By: #### B MP ####[facility] Ngridxbvbt8063 [place] [id number]. Farhat Leal EGFR-AF [place]UGUESE 42 mL/min/1.73m2 Critically low >=60 [facility] Comment on above: Performed By: #### B MP ####[facility] Spyzxzpzgu5[address] [place] [id number]. Farhat Leal EGFR-NON AF [place] 34 mL/min/1.73m2 Critically low >=60 [facility] Comment on above: Performed By: #### B MP ####[facility] Ewhiltrsfy217[address] [place] [address]Dr. Farhat Leal Glucose [Mass/Vol] 314 mg/dL Critically high 74-106 [facility] Comment on above: Performed By: #### B MP ####[facility] Orhhqijxvd7008 [place] [address]Dr. Farhat Leal Potassium [Moles/Vol] 4.7 mmol/L Normal 3.5-5.1 [facility] Comment on above: Performed By: #### B MP ####[facility] Zdqwsaqzfy5[address] [place], [place] [address]Dr. Farhat Leal Sodium [Moles/Vol] 127 mmol/L Critically low 136-145 [facility] Comment on above: Performed By: #### B MP ####[facility] Fixtddbwda8088 [place] [id number]. Farhat Leal Urea nitrogen [Mass/Vol] 79.0 mg/dL Critically high 7.0-18.0 [facility] Comment on above: Result Comment: repe ated Performed By: #### B MP ####[facility] Busshrtvyh9[address] [place], [place] [address]Dr. Farhat Leal Urea nitrogen/Creatinine [Mass ratio] 41.4 mg/mg Normal [facility] Comment on above: Performed By: #### B MP ####[facility] Y[address]viojrpc[address] [place], [place] [address]Dr. Farhat Leal PTT HEPARIN MONITORon 2021 aPTT Coag (Bld) [Time] 42.7 s Normal 39.5-54.2 Th e [facility] Comment on above: Performed By: #### P TTHEP ####[facility] Ooqqyqdere[address] [place], [place] [address]Dr. Farhat Leal aPTT Coag (Bld) [Time] 56.7 s Critically high 39.5-54. 2 [facility] Comment on above: Performed By: #### P TTHEP ####[facility] Thqdcpfjmg[address] [place], [place] [address]Dr. Farhat Elvis CBC AUTO DIFFon 09-23-2021 BASO # 0.1 103/ul Normal 0.0-0.1 [facility] Comment on above: Performed By: #### C BC ####[facility] Qfoxeuqbuc422[address] [place], [place] [address]Dr. Farhat Leal Basophils/100 WBC (Bld) 0.6 % Normal 0.2-2.0 [facility] Comment on above: Performed By: #### C BC ####[facility] Kbfazpazzn92[address] [place], [place] [address]Dr. Farhat Leal EO # 0.2 103/ul Normal 0.0-0.7 [facility] Comment on above: Performed By: #### C BC ####[facility] Rclhlnamsn[address] [place], [place] [address]Dr. Farhat Leal Eosinophils/100 WBC (Bld) 2.6 % Normal 0.9-7.0 [facility] Comment on above: Performed By: #### C BC ####[facility] Ieddeimswq22[address] [place], [place] [address]Dr. Farhat Leal Erythrocyte distribution width (RBC) [Ratio] 12.4 % Normal 11.0-15.0 [facility] Comment on above: Performed By: #### C BC ####[facility] Hrzxoervua[address] [place], [place] [address]Dr. Farhat Leal Hematocrit (Bld) [Volume fraction] 38.4 % Critically low 42.0-54.0 [facility] Comment on above: Performed By: #### C BC ####[facility] Xarcyrstch[address] [place] [id number]. Farhat Leal Hemoglobin (Bld) [Mass/Vol] 12.8 g/dL Critically low 14.0-18.0 [facility] Comment on above: Performed By: #### C BC ####[facility] Xoqsjcsaxp5256 [place] [id number]. Farhat Leal IG # 0.06 10e3/ul Critically high 0.00-0.03 [facility] Comment on above: Performed By: #### C BC ####[facility] Rczebeckvq5[address] [place] [address]Dr. Farhat Leal IG % 0.8 % Critically high 0.0-0.5 [facility] Comment on above: Performed By: #### C BC ####[facility] Umssvtcbhl39[address] [place] [address]Dr. Farhat Leal LYMPH # 1.5 103/ul Normal 1.2-3.8 [facility] [facility] Comment on above: Performed By: #### C BC ####[facility] [address]suudzir[address] [place] [address]Dr. Farhat Leal Lymphocytes/100 WBC (Bld) 19.7 % Critically low 20.5-60.0 [facility] Comment on above: Performed By: #### C BC ####[facility] Ywdyiyfxvp[address] [place] [address]Dr. Farhat Leal MANUAL DIFF REQ NO Normal [facility] Comment on above: Performed By: #### C BC ####[facility] Bgsqftnpsg[address] [place] [id number]. Farhat Leal MCH (RBC) [Entitic mass] 31.6 pg Normal 25.9-34.0 [facility] Comment on above: Performed By: #### C BC ####[facility] Tjyekwzujv[address] [place] [id number]. Farhat Leal MCHC (RBC) [Mass/Vol] 33.3 g/dL Normal 29.9-35.2 [facility] Comment on above: Performed By: #### C BC ####[facility] Ilvbfbevxt60[address] [place] [id number]. Farhat Leal MCV (RBC) [Entitic vol] 94.8 fL Critically high 80.0-94.0 [facility] Comment on above: Performed By: #### C BC ####[facility] Lmaygnwoqj69[address] [place] [id number]. Farhat Leal MONO # 1.0 103/ul Critically high 0.3-0.8 [facility] Comment on above: Performed By: #### C BC ####[facility] Epfhvsphit22[address] [place] [id number]. Farhat Leal Monocytes/100 WBC (Bld) 13.0 % Critically high 1.7-12.0 [facility] Comment on above: Performed By: #### C BC ####[facility] Vosqckgrgc[address] [place], [place] [address]Dr. Farhat Leal NEUT # 4.9 103/ul Normal 1.4-6.5 [facility] Comment on above: Performed By: #### C BC ####[facility] Udotqyoafn[address] [place], [place] [id number]. Farhat Leal Neutrophils/100 WBC (Bld) 63.3 % Normal 43.0-75.0 [facility] Comment on above: Performed By: #### C BC ####[facility] Llgbqgicyf[address] [place], [place] [id number]. Farhat Leal Platelet mean volume (Bld) [Entitic vol] 10.7 fL Normal 9.5-13.5 [facility] Comment on above: Performed By: #### C BC ####[facility] Wfyeguavrz5[address] [place] [id number]. Farhat Leal PLT 205 103/ul Normal 150-450 [facility] Comment on above: Performed By: #### C BC ####[facility] Jicqjxfwhl59[address] [place] [id number]. Farhat Leal RBC 4.05 106/ul Critically low 4.70-6.10 [facility] Comment on above: Performed By: #### C BC ####[facility] Dnwtctnhuk6[address] [place] [id number]. Madelynlorri Elvis WBC 7.7 103/ul Normal 4.0-11.0 [facility] Comment on above: Performed By: #### C BC ####[facility] Btzllkgcgl0722 [place] [id number]. Farhat Leal PROF CHEM 8 (BAS METB)on Anion gap [Moles/Vol] 15.5 mmol/L Normal [facility] Comment on above: Performed By: #### B MP ####[facility] Iexjeroafj[address] [place] [address]Dr. Farhat Leal Calcium [Mass/Vol] 9.1 mg/dL Normal 8.5-10.1 [facility] Comment on above: Performed By: #### B MP ####[facility] Wmjvyymvrl[address] [place], [place] [address]Dr. Farhat Leal Chloride [Moles/Vol] 92 mmol/L Critically low 98-107 [facility] Comment on above: Performed By: #### B MP ####[facility] Qtizpjawot429[address] [place], [place] [address]Dr. Farhat Leal CO2 [Moles/Vol] 28.5 mmol/L Normal 21.0-32.0 [facility] Comment on above: Performed By: #### B MP ####[facility] Philuccpfd6[address] [place] [address]Dr. Farhat Leal Creatinine [Mass/Vol] 1.84 mg/dL Critically high 0.70-1.30 [facility] Comment on above: Performed By: #### B MP ####[facility] Qdvybcepvv7099[address] [place], [place] [address]Dr. Farhat Leal EGFR-AF PORTUGUESE 44 mL/min/1.73m2 Critically low >=60 [facility] Comment on above: Performed By: #### B MP ####[facility] Ljzyztbzbt[address] [place] [address]Dr. Farhat Leal EGFR-NON AF PORTUGUESE 36 mL/min/1.73m2 Critically low >=60 [facility] Comment on above: Performed By: #### B MP ####[facility] Wuhcxzocac8[address] [place] [address]Dr. Madelynlorri Leal Glucose [Mass/Vol] 267 mg/dL Critically high 74-106 [facility] Comment on above: Performed By: #### B MP ####[facility] Xpsmybqreq339[address] [place], [place] [address]Dr. Farhat Leal Potassium [Moles/Vol] 5.0 mmol/L Normal 3.5-5.1 [facility] Comment on above: Performed By: #### B MP ####[facility] Sxymysasef150962 [address] [place], [place] [address]Dr. Farhat Leal Sodium [Moles/Vol] 131 mmol/L Critically low 136-145 [facility] Comment on above: Performed By: #### B MP ####[facility] Qczapdkdfl6618[address] [place], [place] [address]Dr. Farhat Leal Urea nitrogen [Mass/Vol] 76.0 mg/dL Critically high 7.0-18.0 [facility] Comment on above: Performed By: #### B MP ####[facility] Lseighzfqc9627[address] [place], [place] [address]Dr. Farhat Leal Urea nitrogen/Creatinine [Mass ratio] 41.3 mg/mg Normal [facility] Comment on above: Performed By: #### B MP ####[facility] Sugvezrssm047[address] [place], [place] [address]Dr. Farhat Leal PTT HEPARIN MONITORon 2021 aPTT Coag (Bld) [Time] 57.2 s Critically high 39.5-54. 2 [facility] Comment on above: Performed By: #### P TTHEP ####[facility] Pgwdhbvkfw386[address] [place], [place] [address]Dr. Farhat Leal aPTT Coag (Bld) [Time] 74.7 s Critically high 39.5-54. 2 [facility] Comment on above: Result Comment: repe ated Performed By: #### P TTHEP ####[facility] Cpraevszbp759[address] [place], [place] [address]Dr. Madelynlorri Leal aPTT Coag (Bld) [Time] 45.5 s Normal 39.5-54.2 Th e [facility] Comment on above: Performed By: #### P TTHEP ####[facility] Fvoewrxuyy1664[address] [place], [place] [address]Dr. Farhat Elvis CBC AUTO DIFFon 09-22-2021 BASO # 0.1 103/ul Normal 0.0-0.1 [facility] Comment on above: Performed By: #### C BC ####[facility] Ydljrekhrj8917[address] [place], [place] [address]Dr. Farhat Leal Basophils/100 WBC (Bld) 0.7 % Normal 0.2-2.0 [facility] Comment on above: Performed By: #### C BC ####[facility] Qhoyrqqjbp1825[address] [place], [place] [address]Dr. Farhat Leal EO # 0.3 103/ul Normal 0.0-0.7 [facility] Comment on above: Performed By: #### C BC ####[facility] Fcmwzjjlrg809[address] [place], [place] [address]Dr. Farhat Leal Eosinophils/100 WBC (Bld) 3.2 % Normal 0.9-7.0 [facility] Comment on above: Performed By: #### C BC ####[facility] Bknblpygsx8550[address] [place], [place] [address]Dr. Farhat Leal Erythrocyte distribution width (RBC) [Ratio] 12.5 % Normal 11.0-15.0 [facility] Comment on above: Performed By: #### C BC ####[facility] Xeddfpbelf201[address] [place], [place] [address]Dr. Farhat Leal Hematocrit (Bld) [Volume fraction] 40.5 % Critically low 42.0-54.0 [facility] Comment on above: Performed By: #### C BC ####[facility] Dldxxguwjv9664[address] [place], [place] [address]Dr. Farhat Leal Hemoglobin (Bld) [Mass/Vol] 13.4 g/dL Critically low 14.0-18.0 [facility] Comment on above: Performed By: #### C BC ####[facility] Fljljfgmbi[address] [place] [id number]. Farhat Leal IG # 0.11 10e3/ul Critically high 0.00-0.03 [facility] Comment on above: Performed By: #### C BC ####[facility] Uqtcjizakh4[address] [place] [id number]. Farhat Elvis IG % 1.3 % Critically high 0.0-0.5 [facility] Comment on above: Performed By: #### C BC ####[facility] Sqcxbrcfat26[address] [place] [id number]. Madelynlorri Elvis LYMPH # 1.7 103/ul Normal 1.2-3.8 [facility] Comment on above: Performed By: #### C BC ####[facility] Nsulchmzmz4[address] [place] [address]DrSkylar Leal Lymphocytes/100 WBC (Bld) 19.6 % Critically low 20.5-60.0 [facility] Comment on above: Performed By: #### C BC ####[facility] Lezxdwpplb65[address] [place] [id number] Leal MANUAL DIFF REQ NO Normal [facility] Comment on above: Performed By: #### C BC ####[facility] Sbcohocjaq6331 [place] [id number]. Farhat Leal MCH (RBC) [Entitic mass] 31.1 pg Normal 25.9-34.0 [facility] Comment on above: Performed By: #### C BC ####[facility] Irgdxjichy9[address] [place] [id number]. Farhat Elvis MCHC (RBC) [Mass/Vol] 33.1 g/dL Normal 29.9-35.2 [facility] Comment on above: Performed By: #### C BC ####[facility] Vbmthhxezl4[address] [place] [id number]. Farhat Leal MCV (RBC) [Entitic vol] 94.0 fL Normal 80.0-94.0 [facility] Comment on above: Performed By: #### C BC ####[facility] Yoxkncfsmo075[address] [place] [id number]. Farhat Leal MONO # 1.1 103/ul Critically high 0.3-0.8 [facility] Comment on above: Performed By: #### C BC ####[facility] Rhlejxlena87[address] [place] [id number]. Farhat Leal Monocytes/100 WBC (Bld) 12.7 % Critically high 1.7-12.0 [facility] Comment on above: Performed By: #### C BC ####[facility] Ldxxjeyakw69[address] [place] [id number]. Farhat Leal NEUT # 5.3 103/ul Normal 1.4-6.5 [facility] Comment on above: Performed By: #### C BC ####[facility] Rnpkdaypyt[address] [place] [address]Dr. Farhat Leal Neutrophils/100 WBC (Bld) 62.5 % Normal 43.0-75.0 [facility] Comment on above: Performed By: #### C BC ####[facility] Dduzstuwla0974 [place] [address]Dr. Farhat Leal Platelet mean volume (Bld) [Entitic vol] 10.1 fL Normal 9.5-13.5 [facility] Comment on above: Performed By: #### C BC ####[facility] Urxujskdlv88[address] [place] [address]Dr. Farhat Leal PLT 220 103/ul Normal 150-450 [facility] Comment on above: Performed By: #### C BC ####[facility] Eakqadewmg[address] [place] [id number]. Farhat Leal RBC 4.31 106/ul Critically low 4.70-6.10 [facility] Comment on above: Performed By: #### C BC ####[facility] Guucmhecfn55[address] [place] [id number]. Farhat Leal WBC 8.4 103/ul Normal 4.0-11.0 [facility] Comment on above: Performed By: #### C BC ####[facility] Khchkgncxl1224 [place] [id number]. Farhat Leal PROF CHEM 8 (BAS METB)on Anion gap [Moles/Vol] 15.5 mmol/L Normal [facility] Comment on above: Performed By: #### B MP ####[facility] Mxvrqtevro4[address] [place] [id number]. Farhat Leal Calcium [Mass/Vol] 8.9 mg/dL Normal 8.5-10.1 [facility] Comment on above: Performed By: #### B MP ####[facility] Osxffnxunf26[address] [place] [address]Dr. Farhat Leal Chloride [Moles/Vol] 92 mmol/L Critically low 98-107 [facility] Comment on above: Performed By: #### B MP ####[facility] Eoztiduqvj339[address] [place], [place] [address]Dr. Farhat Leal CO2 [Moles/Vol] 25.7 mmol/L Normal 21.0-32.0 [facility] Comment on above: Performed By: #### B MP ####[facility] Cynjfoveqp0726[address] [place], [place] [address]Dr. Farhat Leal Creatinine [Mass/Vol] 1.85 mg/dL Critically high 0.70-1.30 [facility] Comment on above: Performed By: #### B MP ####[facility] Hunpftymba32[address] [place] [address]Dr. Farhat Leal EGFR-AF PORTUGUESE 43 mL/min/1.73m2 Critically low >=60 [facility] Comment on above: Performed By: #### B MP ####[facility] Jmzlnkpzub33[address] [place] [id number]. Farhat Leal EGFR-NON AF PORTUGUESE 36 mL/min/1.73m2 Critically low >=60 [facility] Comment on above: Performed By: #### B MP ####[facility] Neforfnmsd3560 [place] [id number]. Farhat Leal Glucose [Mass/Vol] 410 mg/dL Critically high 74-106 [facility] Comment on above: Performed By: #### B MP ####[facility] Fdxiiernmk555[address] [place], [place] [address]Dr. Madelynlorri Leal Potassium [Moles/Vol] 5.2 mmol/L Critically high 3.5-5.1 [facility] Comment on above: Performed By: #### B MP ####[facility] Oonzkgwmsz5880[address] [place], [place] [address]Dr. Madelynlorri Elvis Sodium [Moles/Vol] 128 mmol/L Critically low 136-145 Th [facility] Comment on above: Performed By: #### B MP ####[facility] Esmykkajth2585[address] [place], [place] [address]Dr. Madelynlorri Elvis Urea nitrogen [Mass/Vol] 75.0 mg/dL Critically high 7.0-18.0 [facility] Comment on above: Performed By: #### B MP ####[facility] Rpihifohrb12[address] [place], [place] [address]Dr. Farhat Leal Urea nitrogen/Creatinine [Mass ratio] 40.5 mg/mg Normal [facility] Comment on above: Performed By: #### B MP ####[facility] Oigdqxhulo835[address] [place], [place] [address]Dr. Madelynlorri Elvis PTT HEPARIN MONITORon 2021 aPTT Coag (Bld) [Time] 51.2 s Normal 39.5-54.2 [facility] Comment on above: Performed By: #### P TTHEP ####[facility] Ineqbhzqwf087[address] [place], [place] [address]Dr. Madelynlorri Elvis aPTT Coag (Bld) [Time] 55.6 s Critically high 39.5-54. 2 [facility] Comment on above: Performed By: #### P TTHEP ####[facility] Eyznmkegxk2199[address] [place], [place] [address]Dr. Farhat Leal aPTT Coag (Bld) [Time] 46.1 s Normal 39.5-54.2 [facility] Comment on above: Performed By: #### P TTHEP ####[facility] Rpokuqexee760[address] [place], [place] [address]Dr. Madelynlorri Leal aPTT Coag (Bld) [Time] 53.8 s Normal 39.5-54.2 Th e [facility] Comment on above: Performed By: #### P TTHEP ####[facility] Clplkgfulu2750[address] [place], [place] [address]Dr. Madelynlorri Leal CBC AUTO DIFFon 09-21-2021 BASO # 0.1 103/ul Normal 0.0-0.1 [facility] Comment on above: Performed By: #### C BC ####[facility] Fryltwgjgu107[address] [place], [place] [address]Dr. Farhat Leal Basophils/100 WBC (Bld) 0.8 % Normal 0.2-2.0 [facility] Comment on above: Performed By: #### C BC ####[facility] Uyvfatrtan390[address] [place], [place] [address]Dr. Farhat Leal EO # 0.4 103/ul Normal 0.0-0.7 [facility] Comment on above: Performed By: #### C BC ####[facility] Xikbaaxced6768[address] [place], [place] [address]Dr. Farhat Leal Eosinophils/100 WBC (Bld) 4.3 % Normal 0.9-7.0 [facility] Comment on above: Performed By: #### C BC ####[facility] Ldrmxbtmad33[address] [place], [place] [address]Dr. Farhat Leal Erythrocyte distribution width (RBC) [Ratio] 12.5 % Normal 11.0-15.0 [facility] Comment on above: Performed By: #### C BC ####[facility] Orgrbinqul0867[address] [place], [place] [address]Dr. Farhat Leal Hematocrit (Bld) [Volume fraction] 40.8 % Critically low 42.0-54.0 [facility] Comment on above: Performed By: #### C BC ####[facility] Tymmzauays[address] [place], [place] [address]Dr. Farhat Leal Hemoglobin (Bld) [Mass/Vol] 13.5 g/dL Critically low 14.0-18.0 [facility] Comment on above: Performed By: #### C BC ####[facility] Xxfinvnfsg6537 [place] [id number]. Madelynlorri Elvis IG # 0.10 10e3/ul Critically high 0.00-0.03 [facility] Comment on above: Performed By: #### C BC ####[facility] Bhhhcklizc50[address] [place] [id number]. Farhat Leal IG % 1.2 % Critically high 0.0-0.5 [facility] Comment on above: Performed By: #### C BC ####[facility] Ohrlrphjmz[address] [place] [address]Dr. Farhat Leal LYMPH # 1.3 103/ul Normal 1.2-3.8 [facility] Comment on above: Performed By: #### C BC ####[facility] Mabuwubelo[address] [place] [address]DrSkylar Leal Lymphocytes/100 WBC (Bld) 15.4 % Critically low 20.5-60.0 [facility] Comment on above: Performed By: #### C BC ####[facility] Sifphuvtmb6[address] [place] [address]Dr. Farhat Leal MANUAL DIFF REQ NO Normal [facility] Comment on above: Performed By: #### C BC ####[facility] Rjoizxtddf08[address] [place] [address]Dr. Farhat Leal MCH (RBC) [Entitic mass] 31.0 pg Normal 25.9-34.0 [facility] Comment on above: Performed By: #### C BC ####[facility] Qngpdrcsvd2343 [place] [id number]. Farhat Leal MCHC (RBC) [Mass/Vol] 33.1 g/dL Normal 29.9-35.2 [facility] Comment on above: Performed By: #### C BC ####[facility] Iaozitbhgk5[address] [place] [address]Dr. Farhat Leal MCV (RBC) [Entitic vol] 93.8 fL Normal 80.0-94.0 [facility] Comment on above: Performed By: #### C BC ####[facility] Kbzxagdtvc5644 [place] [id number]. Farhat Leal MONO # 1.2 103/ul Critically high 0.3-0.8 [facility] Comment on above: Performed By: #### C BC ####[facility] Dfsjnyspro8397 [place] [id number]. Farhat Leal Monocytes/100 WBC (Bld) 13.6 % Critically high 1.7-12.0 [facility] Comment on above: Performed By: #### C BC ####[facility] Eepaptrxrh2368 [place] [id number]. Farhat Leal NEUT # 5.5 103/ul Normal 1.4-6.5 [facility] Comment on above: Performed By: #### C BC ####[facility] Ycznkzmutv3086 [place] [address]Dr. Farhat Leal Neutrophils/100 WBC (Bld) 64.7 % Normal 43.0-75.0 [facility] Comment on above: Performed By: #### C BC ####[facility] Dzgpbdwusu9656 [place] [id number]. Farhat Leal Platelet mean volume (Bld) [Entitic vol] 9.8 fL Normal 9.5-13.5 [facility] Comment on above: Performed By: #### C BC ####[facility] Oyjdbvxuet8965 [place] [id number]. Farhat Leal PLT 206 103/ul Normal 150-450 [facility] Comment on above: Performed By: #### C BC ####[facility] Jsfntleiqy3041 [place] [id number]. Farhat Leal RBC 4.35 106/ul Critically low 4.70-6.10 [facility] Comment on above: Performed By: #### C BC ####[facility] Bypwlqpmsu3029 [place] [id number]. Farhat Leal WBC 8.4 103/ul Normal 4.0-11.0 [facility] Comment on above: Performed By: #### C BC ####[facility] Nvzkihgixe9326 [place] [address]Dr. Farhat Leal PROF CHEM 8 (BAS METB)on Anion gap [Moles/Vol] 12.3 mmol/L Normal Th [facility] Comment on above: Performed By: #### B MP ####[facility] Rdyrarbbef880[address] [place], [place] [address]Dr. Farhat Leal Calcium [Mass/Vol] 8.6 mg/dL Normal 8.5-10.1 [facility] Comment on above: Performed By: #### B MP ####[facility] Nehspseahq2625[address] [place], [place] [address]Dr. Farhat Leal Chloride [Moles/Vol] 94 mmol/L Critically low 98-107 [facility] Comment on above: Performed By: #### B MP ####[facility] Cadvvtfgjl848[address] [place], [place] [address]Dr. Farhat Leal CO2 [Moles/Vol] 30.8 mmol/L Normal 21.0-32.0 [facility] Comment on above: Performed By: #### B MP ####[facility] Fifaijyrux396[address] [place], [place] [address]Dr. Farhat Leal Creatinine [Mass/Vol] 1.99 mg/dL Critically high 0.70-1.30 [facility] Comment on above: Performed By: #### B MP ####[facility] Btzinkasmc0225[address] [place], [place] [address]Dr. Farhat Leal EGFR-AF PORTUGUESE 40 mL/min/1.73m2 Critically low >=60 [facility] Comment on above: Performed By: #### B MP ####[facility] Rtznjpegjl619[address] [place], [place] [address]Dr. Farhat Leal EGFR-NON AF [place]UGUESE 33 mL/min/1.73m2 Critically low >=60 [facility] Comment on above: Performed By: #### B MP ####[facility] Ragmviogwv8[address] [place], [place] [address]Dr. Farhat Leal Glucose [Mass/Vol] 264 mg/dL Critically high 74-106 T [facility] Comment on above: Performed By: #### B MP ####[facility] Vbeqqkvgze0116[address] [place], [place] [address]Dr. Farhat Leal Potassium [Moles/Vol] 5.1 mmol/L Normal 3.5-5.1 [facility] Comment on above: Performed By: #### B MP ####[facility] Kltgiliowi64216[address] [place], [place] [address]Dr. Farhat Leal Sodium [Moles/Vol] 132 mmol/L Critically low 136-145 Th [facility] Comment on above: Performed By: #### B MP ####[facility] Wpvssovhji606[address] [place], [place] [address]Dr. Farhat Leal Urea nitrogen [Mass/Vol] 72.0 mg/dL Critically high 7.0-18.0 [facility] Comment on above: Performed By: #### B MP ####[facility] Lrunppnald7316[address] [place], [place] [address]Dr. Farhat Leal Urea nitrogen/Creatinine [Mass ratio] 36.2 mg/mg Normal [facility] Comment on above: Performed By: #### B MP ####[facility] Twcihbnixn126[address] [place], [place] [address]Dr. Farhat Leal PTT HEPARIN MONITORon 2021 aPTT Coag (Bld) [Time] 45.3 s Normal 39.5-54.2 [facility] Comment on above: Performed By: #### P TTHEP ####[facility] Zvbernalsy3630[address] [place], [place] [address]Dr. Farhat Leal aPTT Coag (Bld) [Time] 68.0 s Critically high 39.5-54. 2 [facility] Comment on above: Performed By: #### P TTHEP ####[facility] Sujosyisww[address] [place], [place] [address]Dr. Farhat Leal aPTT Coag (Bld) [Time] 69.4 s Critically high 39.5-54. 2 [facility] Comment on above: Performed By: #### P TTHEP ####[facility] Kptpdswpkm1243 [place] [id number]. Farhat Elvis aPTT Coag (Bld) [Time] 53.5 s Normal 39.5-54.2 [facility] Comment on above: Performed By: #### P TTHEP ####[facility] Iheidjdmlm[address] [place], [place] [address]Dr. Madelynlorri Elvis aPTT Coag (Bld) [Time] 126.9 s Critically high 39.5-54. 2 [facility] Comment on above: Performed By: #### P TTHEP ####[facility] Jsfappwpnn2967[address] [place], [place] [address]Dr. Farhat Leal CBC AUTO DIFFon 09-20-2021 BASO # 0.1 103/ul Normal 0.0-0.1 [facility] Comment on above: Performed By: #### C BC ####[facility] Kyjakxglkx09[address] [place], [place] [address]Dr. Farhat Leal Basophils/100 WBC (Bld) 0.7 % Normal 0.2-2.0 [facility] Comment on above: Performed By: #### C BC ####[facility] Wrrskpmymg[address] [place], [place] [address]Dr. Farhat Leal EO # 0.2 103/ul Normal 0.0-0.7 [facility] Comment on above: Performed By: #### C BC ####[facility] Bhbldufyvb384[address] [place], [place] [address]Dr. Farhat Leal Eosinophils/100 WBC (Bld) 3.2 % Normal 0.9-7.0 [facility] Comment on above: Performed By: #### C BC ####[facility] Ljyjkddjyv[address] [place], [place] [address]Dr. Farhat Leal Erythrocyte distribution width (RBC) [Ratio] 12.4 % Normal 11.0-15.0 [facility] Comment on above: Performed By: #### C BC ####[facility] Trvnomqtxw97[address] [place], [place] [address]Dr. Farhat Leal Hematocrit (Bld) [Volume fraction] 40.1 % Critically low 42.0-54.0 [facility] Comment on above: Performed By: #### C BC ####[facility] Zbsjcefjdp[address] [place] [address]Dr. Farhat Leal Hemoglobin (Bld) [Mass/Vol] 13.4 g/dL Critically low 14.0-18.0 [facility] Comment on above: Performed By: #### C BC ####[facility] Upmwyruuyq[address] [place] [address]DrSkylar Farhat Leal IG # 0.08 10e3/ul Critically high 0.00-0.03 [facility] Comment on above: Performed By: #### C BC ####[facility] Luxaguqzan8114 [place] [address]Dr. Farhat Leal IG % 1.1 % Critically high 0.0-0.5 [facility] Comment on above: Performed By: #### C BC ####[facility] Orogxhnbgk7[address] [place] [address]Dr. Farhat Elvis LYMPH # 1.3 103/ul Normal 1.2-3.8 [facility] Comment on above: Performed By: #### C BC ####[facility] Bzdxdkiibt8959 [place] [address]DrSkylar Farhat Leal Lymphocytes/100 WBC (Bld) 17.3 % Critically low 20.5-60.0 [facility] Comment on above: Performed By: #### C BC ####[facility] Wjonvtfemr4280 [place] [address]DrSkylar Farhat Elvis MANUAL DIFF REQ NO Normal [facility] Comment on above: Performed By: #### C BC ####[facility] Kplyjrfrmi9349 [place] [id number]. Farhat Leal MCH (RBC) [Entitic mass] 31.2 pg Normal 25.9-34.0 [facility] Comment on above: Performed By: #### C BC ####[facility] Ppuoplpzqc5909 [place] [id number]. Farhat Elvis MCHC (RBC) [Mass/Vol] 33.4 g/dL Normal 29.9-35.2 [facility] Comment on above: Performed By: #### C BC ####[facility] Dboxntfwod6784 [place] [id number] Farhat Leal MCV (RBC) [Entitic vol] 93.3 fL Normal 80.0-94.0 [facility] Comment on above: Performed By: #### C BC ####[facility] Dxiqgfezhz7543 [place] [id number] Farhat Leal MONO # 0.9 103/ul Critically high 0.3-0.8 [facility] Comment on above: Performed By: #### C BC ####[facility] Xzeuqpmkvl4412 [place] [address]DrSkylar Farhat Elvis Monocytes/100 WBC (Bld) 12.4 % Critically high 1.7-12.0 [facility] Comment on above: Performed By: #### C BC ####[facility] Yyyypzdkst7400 [place] [address]Dr. Farhat Leal NEUT # 4.7 103/ul Normal 1.4-6.5 [facility] Comment on above: Performed By: #### C BC ####[facility] Ujiariorzh8444 [place] [address]Dr. Farhat Elvis Neutrophils/100 WBC (Bld) 65.3 % Normal 43.0-75.0 [facility] Comment on above: Performed By: #### C BC ####[facility] Hpsirqoljs7489 [place] [id number]. Farhat Elvis Platelet mean volume (Bld) [Entitic vol] 9.9 fL Normal 9.5-13.5 [facility] Comment on above: Performed By: #### C BC ####[facility] Iyssgfyusb6539 [place] [id number]. Farhat Leal PLT 180 103/ul Normal 150-450 [facility] Comment on above: Performed By: #### C BC ####[facility] Rshsnohrqb7874 [place] [id number] Leal RBC 4.30 106/ul Critically low 4.70-6.10 [facility] Comment on above: Performed By: #### C BC ####[facility] Afidupoixx5722 [place] [address]Dr. Farhat Leal WBC 7.2 103/ul Normal 4.0-11.0 [facility] Comment on above: Performed By: #### C BC ####[facility] Nbxscbnytc[address] [place], [place] [address]Dr. Farhat Elvis PTT HEPARIN MONITORon 2021 aPTT Coag (Bld) [Time] 26.7 s Critically low 39.5-54.2 [facility] Comment on above: Performed By: #### P TTHEP ####[facility] Eioqjnpdlu615[address] [place], [place] [address]Dr. Farhat Leal aPTT Coag (Bld) [Time] 121.0 s Critically high 39.5-54. 2 [facility] Comment on above: Performed By: #### P TTHEP ####[facility] Lggdylahbg[address] [place], [place] [address]Dr. Farhat Leal aPTT Coag (Bld) [Time] 27.6 s Critically low 39.5-54.2 [facility] Comment on above: Performed By: #### P TTHEP ####[facility] Sqbadawlyi58[address] [place], [place] [address]Dr. Farhat Leal aPTT Coag (Bld) [Time] 139.0 s Critically high 39.5-54. 2 [facility] Comment on above: Performed By: #### P TTHEP ####[facility] Aivvozjbjd201[address] [place], [place] [address]Dr. Farhat Leal CBC AUTO DIFFon 09-19-2021 BASO # 0.0 103/ul Normal 0.0-0.1 [facility] Comment on above: Performed By: #### C BC ####[facility] Bxyrdezivx5665[address] [place], [place] [address]Dr. Farhat Elvis Basophils/100 WBC (Bld) 0.5 % Normal 0.2-2.0 [facility] Comment on above: Performed By: #### C BC ####[facility] Ikxcbllflo6471 [place] [id number]. Farhat Leal EO # 0.2 103/ul Normal 0.0-0.7 [facility] Comment on above: Performed By: #### C BC ####[facility] Ngarfodqnq5079 [place] [id number]. Farhat Leal Eosinophils/100 WBC (Bld) 2.6 % Normal 0.9-7.0 [facility] Comment on above: Performed By: #### C BC ####[facility] Fuqiifojyk925[address] [place], [place] [address]Dr. Farhat Leal Erythrocyte distribution width (RBC) [Ratio] 12.5 % Normal 11.0-15.0 [facility] Comment on above: Performed By: #### C BC ####[facility] Rchkjooqon4064[address] [place], [place] [address]Dr. Farhat Leal Hematocrit (Bld) [Volume fraction] 39.2 % Critically low 42.0-54.0 [facility] Comment on above: Performed By: #### C BC ####[facility] Vodeqqoifp2948[address] [place], [place] [address]Dr. Farhat Leal Hemoglobin (Bld) [Mass/Vol] 13.3 g/dL Critically low 14.0-18.0 [facility] Comment on above: Performed By: #### C BC ####[facility] Ystukidsru6038[address] [place], [place] [address]Dr. Farhat Leal IG # 0.08 10e3/ul Critically high 0.00-0.03 [facility] Comment on above: Performed By: #### C BC ####[facility] Fbrhzmjqui279[address] [place], [place] [address]Dr. Farhat Leal IG % 0.9 % Critically high 0.0-0.5 [facility] Comment on above: Performed By: #### C BC ####[facility] Ukhuovbfok6934[address] [place], [place] [address]Dr. Farhat Leal LYMPH # 1.5 103/ul Normal 1.2-3.8 [facility] Comment on above: Performed By: #### C BC ####[facility] Yrpakoickk5768 [place] [id number]. Farhat Elvis Lymphocytes/100 WBC (Bld) 17.2 % Critically low 20.5-60.0 [facility] Comment on above: Performed By: #### C BC ####[facility] Usnourqsma7781 [place] [id number]. Farhat Leal MANUAL DIFF REQ NO Normal [facility] Comment on above: Performed By: #### C BC ####[facility] Otsvpemovw9906 [place] [id number]. Madelynlorri Leal MCH (RBC) [Entitic mass] 31.7 pg Normal 25.9-34.0 [facility] Comment on above: Performed By: #### C BC ####[facility] Elzeonepnc[address] [place], [place] [address]Dr. Farhat Leal MCHC (RBC) [Mass/Vol] 33.9 g/dL Normal 29.9-35.2 [facility] Comment on above: Performed By: #### C BC ####[facility] Ftabzktyto317[address] [place], [place] [address]Dr. Farhat Leal MCV (RBC) [Entitic vol] 93.3 fL Normal 80.0-94.0 [facility] Comment on above: Performed By: #### C BC ####[facility] Nmrxuzwkwy50[address] [place], [place] [address]Dr. Farhat Leal MONO # 1.2 103/ul Critically high 0.3-0.8 [facility] Comment on above: Performed By: #### C BC ####[facility] Utzymyqmvc845[address] [place], [place] [address]Dr. Farhat Leal Monocytes/100 WBC (Bld) 13.7 % Critically high 1.7-12.0 [facility] Comment on above: Performed By: #### C BC ####[facility] Gxqauaypfr4[address] [place], [place] [address]Dr. Farhat Leal NEUT # 5.5 103/ul Normal 1.4-6.5 [facility] Comment on above: Performed By: #### C BC ####[facility] Mnmowquhgs3530 [place] [id number]. Farhat Leal Neutrophils/100 WBC (Bld) 65.1 % Normal 43.0-75.0 [facility] Comment on above: Performed By: #### C BC ####[facility] Ttimtbugjs1911 [place] [id number]. Farhat Leal Platelet mean volume (Bld) [Entitic vol] 9.6 fL Normal 9.5-13.5 [facility] Comment on above: Performed By: #### C BC ####[facility] Kbazivpoox1893 [place] [address]Dr. Farhat Leal PLT 163 103/ul Normal 150-450 [facility] Comment on above: Performed By: #### C BC ####[facility] Mnvbnqwgbk1942 [place] [address]Dr. Farhat Elvis RBC 4.20 106/ul Critically low 4.70-6.10 [facility] Comment on above: Performed By: #### C BC ####[facility] Pqmpcgwira8665 [place] [id number]. Farhat Leal WBC 8.4 103/ul Normal 4.0-11.0 [facility] Comment on above: Performed By: #### C BC ####[facility] Bliacthipb2608 [place] [address]Dr. Farhat Elvis POINT OF CARE GLUCOSEon Glucose [Mass/Vol] 300 mg/dL Critically high 74-106 [facility] Comment on above: Performed By: #### P OCGLUC ####[facility] Vmbhpjeqbo0583 [place] [id number]. Farhat Elvis POTASSIUMon 09-19-2021 Potassium [Moles/Vol] 4.9 mmol/L Normal 3.5-5.1 [facility] Comment on above: Performed By: #### K ####[facility] Jlirieftji1020 [place] [id number] Farhat Elvis PTT HEPARIN MONITORon 2021 aPTT Coag (Bld) [Time] 23.4 s Critically low 39.5-54.2 [facility] Comment on above: Result Comment: repe ated Performed By: #### P TTHEP ####[facility] Upmcqkltrl[address] [place], [place] [address]Dr. Farhat Leal aPTT Coag (Bld) [Time] 101.2 s Critically high 39.5-54. 2 [facility] Comment on above: Performed By: #### P TTHEP ####[facility] Cuslmrahui[address] [place], [place] [address]Dr. Farhat Leal aPTT Coag (Bld) [Time] 81.0 s Critically high 39.5-54. 2 [facility] Comment on above: Result Comment: Test Repeated. Critical Value Verified Performed By: #### P TTHEP ####[facility] Wzvodjpqon56[address] [place], [place] [address]Dr. Farhat Leal CBC AUTO DIFFon 09-18-2021 BASO # 0.0 103/ul Normal 0.0-0.1 [facility] Comment on above: Performed By: #### C BC ####[facility] Ttzrgisihf[address] [place], [place] [address]Dr. Farhat Leal Basophils/100 WBC (Bld) 0.4 % Normal 0.2-2.0 [facility] Comment on above: Performed By: #### C BC ####[facility] Txijvhzbop579[address] [place], [place] [address]Dr. Farhat Leal EO # 0.1 103/ul Normal 0.0-0.7 [facility] Comment on above: Performed By: #### C BC ####[facility] Lbjalnknrn8[address] [place], [place] [address]Dr. Farhat Leal Eosinophils/100 WBC (Bld) 0.8 % Critically low 0.9-7.0 [facility] Comment on above: Performed By: #### C BC ####[facility] Baucysoqas787[address] [place], [place] [address]Dr. Farhat Leal Erythrocyte distribution width (RBC) [Ratio] 12.4 % Normal 11.0-15.0 [facility] Comment on above: Performed By: #### C BC ####[facility] Qnhcabiycq1898 [place] [address]DrSkylar Leal Hematocrit (Bld) [Volume fraction] 41.7 % Critically low 42.0-54.0 [facility] Comment on above: Performed By: #### C BC ####[facility] Gyivmtxufi8663 [place] [address]DrSkylar Leal Hemoglobin (Bld) [Mass/Vol] 14.1 g/dL Normal 14.0-18.0 [facility] Comment on above: Performed By: #### C BC ####[facility] Abvrxsmodq4433[address] [place], [place] [address]DrSkylar Leal IG # 0.06 10e3/ul Critically high 0.00-0.03 [facility] Comment on above: Performed By: #### C BC ####[facility] Jxnfkuiylv286[address] [place], [place] [address]DrSkylar Leal IG % 0.6 % Critically high 0.0-0.5 [facility] Comment on above: Performed By: #### C BC ####[facility] Vvqjhlhqgz319[address] [place], [place] [address]DrSkylar Leal LYMPH # 0.6 103/ul Critically low 1.2-3.8 [facility] Comment on above: Performed By: #### C BC ####[facility] Yrtqcyjkjb1130[address] [place], [place] [address]DrSkylar Leal Lymphocytes/100 WBC (Bld) 6.5 % Critically low 20.5-60.0 [facility] Comment on above: Performed By: #### C BC ####[facility] Xmtqntsrgj44[address] [place], [place] [address]DrSkylar Leal MANUAL DIFF REQ NO Normal [facility] Comment on above: Performed By: #### C BC ####[facility] Whlhumediv1224 [place] [address]DrSkylar Leal MCH (RBC) [Entitic mass] 31.6 pg Normal 25.9-34.0 [facility] Comment on above: Performed By: #### C BC ####[facility] Ykroelfcey1840 [place] [address]DrSkylar Leal MCHC (RBC) [Mass/Vol] 33.8 g/dL Normal 29.9-35.2 [facility] Comment on above: Performed By: #### C BC ####[facility] Cccvsnluwc80[address] [place], [place] [address]DrSkylar Leal MCV (RBC) [Entitic vol] 93.5 fL Normal 80.0-94.0 [facility] Comment on above: Performed By: #### C BC ####[facility] Vyiqacibvh1338[address] [place], [place] [address]DrSkylar Leal MONO # 1.0 103/ul Critically high 0.3-0.8 [facility] Comment on above: Performed By: #### C BC ####[facility] Baukbmdapi359[address] [place], [place] [address]DrSkylar Leal Monocytes/100 WBC (Bld) 10.4 % Normal 1.7-12.0 [facility] Comment on above: Performed By: #### C BC ####[facility] Vrfkxsyoxz154[address] [place], [place] [address]DrSkylar Leal NEUT # 7.8 103/ul Critically high 1.4-6.5 [facility] Comment on above: Performed By: #### C BC ####[facility] Gaihkawsph3655[address] [place], [place] [address]DrSkylar Leal Neutrophils/100 WBC (Bld) 81.3 % Critically high 43.0-75.0 [facility] Comment on above: Performed By: #### C BC ####[facility] Fyyckxrmlf548[address] [place], [place] [address]DrSkylar Leal Platelet mean volume (Bld) [Entitic vol] 9.9 fL Normal 9.5-13.5 [facility] Comment on above: Performed By: #### C BC ####[facility] Fpflizpcpw4511[address] [place], [place] [address]DrSkylar Leal PLT 169 103/ul Normal 150-450 [facility] Comment on above: Performed By: #### C BC ####[facility] Twshergbgv3328 [place] [id number]. Farhat Leal RBC 4.46 106/ul Critically low 4.70-6.10 [facility] Comment on above: Performed By: #### C BC ####[facility] Orggzixirt2186 [place] [id number]. Farhat Leal WBC 9.6 103/ul Normal 4.0-11.0 [facility] Comment on above: Performed By: #### C BC ####[facility] Icfirvbuef70[address] [place], [place] [address]Dr. Farhat Leal BASO # 0.0 103/ul Normal 0.0-0.1 [facility] Comment on above: Performed By: #### C BC ####[facility] Tskczvofug89[address] [place], [place] [address]Dr. Farhat Leal Basophils/100 WBC (Bld) 0.4 % Normal 0.2-2.0 [facility] Comment on above: Performed By: #### C BC ####[facility] Ortyjkbjxz35[address] [place], [place] [address]Dr. Farhat Leal EO # 0.1 103/ul Normal 0.0-0.7 [facility] Comment on above: Performed By: #### C BC ####[facility] Bycxkmjeli8630 [place] [id number]. Farhat Leal Eosinophils/100 WBC (Bld) 1.1 % Normal 0.9-7.0 [facility] Comment on above: Performed By: #### C BC ####[facility] Kphoperkmp25[address] [place], [place] [address]Dr. Farhat Leal Erythrocyte distribution width (RBC) [Ratio] 12.6 % Normal 11.0-15.0 [facility] Comment on above: Performed By: #### C BC ####[facility] Hlfkrllkgy259[address] [place], [place] [address]Dr. Farhat Leal Hematocrit (Bld) [Volume fraction] 40.8 % Critically low 42.0-54.0 [facility] Comment on above: Performed By: #### C BC ####[facility] Vvroakivnh2803 [place] [address]DrSkylar Farhat Elvis Hemoglobin (Bld) [Mass/Vol] 13.6 g/dL Critically low 14.0-18.0 [facility] Comment on above: Performed By: #### C BC ####[facility] Wdckrddkuo5271 [place] [address]DrSkylar Joshilorri Elvis IG # 0.08 10e3/ul Critically high 0.00-0.03 [facility] Comment on above: Performed By: #### C BC ####[facility] Nccobtcpsu4831 [place] [address]DrSkylar Leal IG % 0.9 % Critically high 0.0-0.5 [facility] Comment on above: Performed By: #### C BC ####[facility] Gbrmmxmoss957[address] [place], [place] [address]DrSkylar Leal LYMPH # 0.8 103/ul Critically low 1.2-3.8 The [facility] Comment on above: Performed By: #### C BC ####[facility] Oiffiwfefa1683 [place] [address]DrSkylar Leal Lymphocytes/100 WBC (Bld) 8.7 % Critically low 20.5-60.0 [facility] Comment on above: Performed By: #### C BC ####[facility] Nizaqizfbq3491 [place] [address]DrSkylar Leal MANUAL DIFF REQ NO Normal [facility] Comment on above: Performed By: #### C BC ####[facility] Vcvgojxuvj6773 [place] [id number] Leal MCH (RBC) [Entitic mass] 31.6 pg Normal 25.9-34.0 [facility] Comment on above: Performed By: #### C BC ####[facility] Rxbwluxanz9735 [place] [id number] Leal MCHC (RBC) [Mass/Vol] 33.3 g/dL Normal 29.9-35.2 [facility] Comment on above: Performed By: #### C BC ####[facility] Edtfhrtzxq3231 [place] [address]DrSkylar Leal MCV (RBC) [Entitic vol] 94.9 fL Critically high 80.0-94.0 [facility] Comment on above: Performed By: #### C BC ####[facility] Jsbyreomqr[address] [place], [place] [address]DrSkylar Leal MONO # 1.0 103/ul Critically high 0.3-0.8 [facility] Comment on above: Performed By: #### C BC ####[facility] Obeayzozqb55[address] [place], [place] [address]DrSkylar Leal Monocytes/100 WBC (Bld) 11.3 % Normal 1.7-12.0 [facility] Comment on above: Performed By: #### C BC ####[facility] Yavovtezvs019[address] [place], [place] [address]Dr. Farhat Leal NEUT # 6.9 103/ul Critically high 1.4-6.5 [facility] Comment on above: Performed By: #### C BC ####[facility] Jokmmvomst05[address] [place], [place] [address]DrSkylar Leal Neutrophils/100 WBC (Bld) 77.6 % Critically high 43.0-75.0 [facility] Comment on above: Performed By: #### C BC ####[facility] Vpnalyaqul[address] [place], [place] [address]DrSkylar Leal Platelet mean volume (Bld) [Entitic vol] 9.7 fL Normal 9.5-13.5 [facility] Comment on above: Performed By: #### C BC ####[facility] Ovnmeucldp33[address] [place], [place] [address]DrSkylar Leal PLT 171 103/ul Normal 150-450 [facility] Comment on above: Performed By: #### C BC ####[facility] Qmdvkaycqt034[address] [place], [place] [address]DrSkylar Leal RBC 4.30 106/ul Critically low 4.70-6.10 [facility] Comment on above: Performed By: #### C BC ####[facility] Tmmqbyqsrw3263 [place] [id number]. Farhat Leal WBC 8.9 103/ul Normal 4.0-11.0 [facility] Comment on above: Performed By: #### C BC ####[facility] Mhnytxaqos4960 [place] [id number]. Farhat Leal Covid-19 PCR (CVDTB)on SARS-CoV-2 (COVID-19) RNA JOSH+probe Ql (Unsp spec) Not detected Normal NOT DETECTED [facility] Comment on above: Result Comment: When [...] for this test is supported by the [employer] Advisor of Health and Human Service's declaration that [...] be used). Performed By: #### C VDTBH ####[facility] Vmjldrpzbo8450 [place] [id number]. Farhat Leal PROF 14(COMP METB)on 022 Albumin [Mass/Vol] 2.6 g/dL Critically low 3.4-5.0 [facility] Comment on above: Performed By: #### C MP ####[facility] Tzkjydgaak2276 [place] [id number]. Farhat Leal Albumin/Globulin [Mass ratio] 0.7 {ratio} Normal [facility] Comment on above: Performed By: #### C MP ####[facility] Ewgjifaclh8461 [place] [address]Dr. Farhat Leal ALP [Catalytic activity/Vol] 88 U/L Normal 46-116 [facility] Comment on above: Performed By: #### C MP ####[facility] Zdznzvcgfu5110 [place] [address]Dr. Farhat Leal ALT [Catalytic activity/Vol] 15 U/L Critically low 16-63 [facility] Comment on above: Performed By: #### C MP ####[facility] Wkwrcjyicx9[address] [place], [place] [address]Dr. Farhat Leal Anion gap [Moles/Vol] 11.7 mmol/L Normal Th e [facility] Comment on above: Performed By: #### C MP ####[facility] Qmgmppssta8[address] [place], [place] [address]Dr. Farhat Leal AST [Catalytic activity/Vol] 25 U/L Normal 15-37 [facility] Comment on above: Performed By: #### C MP ####[facility] Pcjgpsogsl80[address] [place], [place] [address]Dr. Farhat Leal Bilirubin [Mass/Vol] 0.6 mg/dL Normal 0.2-1.0 [facility] Comment on above: Performed By: #### C MP ####[facility] Cnozohtqgz307[address] [place], [place] [address]Dr. Farhat Leal Calcium [Mass/Vol] 8.9 mg/dL Normal 8.5-10.1 [facility] Comment on above: Performed By: #### C MP ####[facility] Vtkayymkgn37[address] [place], [place] [address]Dr. Farhat Leal Chloride [Moles/Vol] 93 mmol/L Critically low 98-107 [facility] Comment on above: Performed By: #### C MP ####[facility] Wasvvzuvrn208[address] [place], [place] [address]Dr. Farhat Leal CO2 [Moles/Vol] 28.9 mmol/L Normal 21.0-32.0 [facility] Comment on above: Performed By: #### C MP ####[facility] Naiuatehxy5056 [place] [address]Dr. Farhat Leal Creatinine [Mass/Vol] 2.09 mg/dL Critically high 0.70-1.30 [facility] Comment on above: Performed By: #### C MP ####[facility] Actvgntxuu5965 [place] [id number]. Farhat Leal EGFR-AF [place]UGUESE 38 mL/min/1.73m2 Critically low >=60 [facility] Comment on above: Performed By: #### C MP ####[facility] Sxojgvhzoj7544 [place] [address]Dr. Farhat Elvis EGFR-NON AF [place] 31 mL/min/1.73m2 Critically low >=60 [facility] Comment on above: Performed By: #### C MP ####[facility] Evgnpnmsed[address] [place], [place] [address]Dr. Madelynlorri Leal Globulin (S) [Mass/Vol] 3.7 g/dL Normal [facility] Comment on above: Performed By: #### C MP ####[facility] Esuoismrut56[address] [place], [place] [address]Dr. Farhat Leal Glucose [Mass/Vol] 214 mg/dL Critically high 74-106 [facility] Comment on above: Performed By: #### C MP ####[facility] Vslrvxzfle7175 [place] [address]Dr. Madelynlorri Leal Potassium [Moles/Vol] 5.6 mmol/L Critically high 3.5-5.1 [facility] Comment on above: Performed By: #### C MP ####[facility] Tpswrfedxa[address] [place], [place] [address]Dr. Farhat Leal Protein [Mass/Vol] 6.3 g/dL Critically low 6.4-8.2 [facility] Comment on above: Performed By: #### C MP ####[facility] Lbmjbbjhch98[address] [place], [place] [address]Dr. Farhat Leal Sodium [Moles/Vol] 128 mmol/L Critically low 136-145 [facility] Comment on above: Performed By: #### C MP ####[facility] [address] [place] [address]Dr. Farhat Elvis Urea nitrogen [Mass/Vol] 65.0 mg/dL Critically high 7.0-18.0 [facility] Comment on above: Performed By: #### C MP ####[facility] [address] [address]Dr. Farhat Leal Urea nitrogen/Creatinine [Mass ratio] 31.1 mg/mg Normal [facility] Comment on above: Performed By: #### C MP ####[facility] [address] [place], [place] [address]Dr. Farhat Leal Albumin [Mass/Vol] 2.5 g/dL Critically low 3.4-5.0 [facility] Comment on above: Performed By: #### T MYRIAM, CMP ####[facility] [address] [place], [place] [address]Dr. Farhat Leal Albumin/Globulin [Mass ratio] 0.7 {ratio} Normal [facility] Comment on above: Performed By: #### T MYRIAM, CMP ####[facility] Itsql[address]utx[address] [place], [place] [address]Dr. Farhat Leal ALP [Catalytic activity/Vol] 83 U/L Normal 46-116 [facility] Comment on above: Performed By: #### T MYRIAM, CMP ####[facility] [address] [place], [place] [address]Dr. Farhat Leal ALT [Catalytic activity/Vol] 16 U/L Normal 16-63 [facility] Comment on above: Performed By: #### T SH, CMP ####[facility] [address] [place], [place] [address]Dr. Farhat Leal Anion gap [Moles/Vol] 9.7 mmol/L Normal [facility] Comment on above: Performed By: #### T SH, CMP ####[facility] [address] [place], [place] [address]Dr. Farhat Leal AST [Catalytic activity/Vol] 27 U/L Normal 15-37 [facility] Comment on above: Performed By: #### T SH, CMP ####[facility] [address] [place] [id number]. Farhat Leal Bilirubin [Mass/Vol] 0.5 mg/dL Normal 0.2-1.0 [facility] Comment on above: Performed By: #### T SH, CMP ####[facility] [address] [place], [place] [address]Dr. Farhat Leal Calcium [Mass/Vol] 8.8 mg/dL Normal 8.5-10.1 [facility] Comment on above: Performed By: #### T SH, CMP ####[facility] Z[address] [place], [place] [address]Dr. Farhat Leal Chloride [Moles/Vol] 95 mmol/L Critically low 98-107 [facility] Comment on above: Performed By: #### T SH, CMP ####[facility] Ktr[address] [place], [place] [address]Dr. Farhat Leal CO2 [Moles/Vol] 30.5 mmol/L Normal 21.0-32.0 [facility] Comment on above: Performed By: #### T SH, CMP ####[facility] E[address] [place], [place] [address]Dr. Farhat Leal Creatinine [Mass/Vol] 2.18 mg/dL Critically high 0.70-1.30 [facility] Comment on above: Performed By: #### T SH, CMP ####[facility] [address]nos[address] [place], [place] [address]Dr. Farhat Leal EGFR-AF PORTUGUESE 36 mL/min/1.73m2 Critically low >=60 [facility] Comment on above: Performed By: #### T SH, CMP ####[facility] [address] [place], [place] [address]Dr. Farhat Leal EGFR-NON AF PORTUGUESE 30 mL/min/1.73m2 Critically low >=60 [facility] Comment on above: Performed By: #### T SH, CMP ####[facility] Rf[address] [place], [place] [address]Dr. Farhat Leal Globulin (S) [Mass/Vol] 3.5 g/dL Normal [facility] Comment on above: Performed By: #### T SH, CMP ####[facility] [address]err[address] [place], [place] [address]Dr. Farhat Leal Glucose [Mass/Vol] 141 mg/dL Critically high 74-106 T [facility] Comment on above: Performed By: #### T SH, CMP ####[facility] Rx[address]cew[address] [place], [place] [address]Dr. Farhat Leal Potassium [Moles/Vol] 5.2 mmol/L Critically high 3.5-5.1 [facility] Comment on above: Performed By: #### T SH, CMP ####[facility] M[address] [place], [place] [address]Dr. Farhat Leal Protein [Mass/Vol] 6.0 g/dL Critically low 6.4-8.2 Th [facility] Comment on above: Performed By: #### T MYRIAM, CMP ####[facility] Ces[address] [place], [place] [address]Dr. Farhat Leal Sodium [Moles/Vol] 130 mmol/L Critically low 136-145 [facility] Comment on above: Performed By: #### T MYRIAM, CMP ####[facility] Zx[address] [place], [place] [address]Dr. Farhat Leal Urea nitrogen [Mass/Vol] 63.0 mg/dL Critically high 7.0-18.0 [facility] Comment on above: Performed By: #### T MYRIAM, CMP ####[facility] [address] [place], [place] [address]Dr. Farhat Leal Urea nitrogen/Creatinine [Mass ratio] 28.9 mg/mg Normal [facility] Comment on above: Performed By: #### T MYRIAM, CMP ####[facility] O[address] [place], [place] [address]Dr. Farhat Leal PROTIMEon 09-18-2021 INR Coag (PPP) [Relative time] 1.06 {INR} Normal [facility] Comment on above: Performed By: #### P T, PTT ####[facility] [address] [address]Dr. Farhat Leal INR GUIDELINES SEE BELOW Normal [facility] Comment on above: Result Comment: MALINA RED INR: 2.0 - 3.0 CONDITIONS NOT LISTED BELOW 2.5 - 3.5 FOR PROSTHETIC HEART VALVE REPLACEMENT 2.5 - 3.5 RECURRENT THROMBOSIS Performed By: #### P T, PTT ####[facility] [address] [place] [address] [address]Dr. Madelynlorri Elvis PT Coag (PPP) [Time] 11.4 s Normal 9.0-11.6 [facility] Comment on above: Performed By: #### P T, PTT ####[facility] [address] [place] [address] [address]Dr. Farhat Leal PTTon 09-18-2021 aPTT Coag (Bld) [Time] 27.9 s Normal 22.3-36.2 [facility] Comment on above: Performed By: #### P T, PTT ####[facility] [address] [place] [address] [address]Dr. Farhat Elvis TSHon 09-18-2021 TSH 7.099 uIU/mL Critically high 0.358-3.740 [facility] Comment on above: Performed By: #### T SH, CMP ####[facility] [address] [place] [address]Dr. Farhat Leal US SALOME DOP LEG RTon 09-19-19 US SALOME DOP LEG RT Normal [facility] XR CHEST 1 Von 09-18-2021 XR CHEST 1 V Normal [facility] XR HIP RT 2 3V W PELVISon XR HIP RT 2 3V W PELVIS Normal [facility] Vital Signs Date Time Vital Sign Value Performing Clinician Facility 03-18-2023 13:37-0500 Body temperature 98.01 [degF] Ni Cabrera DO Work Phone: [facility] 03-18-2023 13:37-0500 Diastolic blood pressure 64 mm[Hg] Ni Cabrera DO Work Phone: [facility] 03-18-2023 13:37-0500 Heart rate 72 /min Ni Petznick DO Work Phone: [facility] 03-18-2023 13:37-0500 SaO2% (BldA) [Mass fraction] 98 % Ni Petznick DO Work Phone: [facility] 03-18-2023 13:37-0500 Systolic blood pressure 118 mm[Hg] Ni Petznick DO Work Phone: [facility] 07-20-2022 13:35-0400 Body temperature 97.4 [degF] DO Devon Ball Work Phone: [facility] 07-20-2022 13:35-0400 Diastolic blood pressure 50 mm[Hg] DO Devon Ball Work Phone: [facility] 07-20-2022 13:35-0400 Heart rate 67 /min DO Devon Ball Work Phone: [facility] 07-20-2022 13:35-0400 Respiratory rate 20 /min DO Devon Ball Work Phone: [facility] 07-20-2022 13:35-0400 Systolic blood pressure 98 mm[Hg] DO Devon Ball Work Phone: [facility] 06-29-2022 14:46-0400 Body height 193.04 cm DO Devon Ball Work Phone: [facility] 02-26-2022 13:11-0500 Body temperature 96.6 [degF] Hina Peterson MD Work Phone: [facility] 02-26-2022 13:11-0500 Diastolic blood pressure 75 mm[Hg] Hina Peterson MD Work Phone: [facility] 02-26-2022 13:11-0500 Heart rate 75 /min Hina Peterson MD Work Phone: [facility] 02-26-2022 13:11-0500 Systolic blood pressure 88 mm[Hg] Hina Peterson MD Work Phone: [facility] 02-05-2022 08:29-0500 Body temperature 96.69 [degF] [facility] Work Phone: [facility] 02-05-2022 08:29-0500 Diastolic blood pressure 42 mm[Hg] [facility] Work Phone: [facility] 02-05-2022 08:29-0500 Heart rate 79 /min [facility] Work Phone: [facility] 02-05-2022 08:29-0500 SaO2% (BldA) [Mass fraction] 100 % [facility] Work Phone: [facility] 02-05-2022 08:29-0500 Systolic blood pressure 72 mm[Hg] [facility] Work Phone: [facility] 01-12-2022 11:00-0500 Diastolic blood pressure 54 mm[Hg] Alissa Major PLATE SENSITIZER.AGRICULTURAL PRODUCE WASHER Work Phone: [facility] 01-12-2022 11:00-0500 Heart rate 88 /min Alissa Major PLATE SENSITIZER.AGRICULTURAL PRODUCE WASHER Work Phone: [facility] 01-12-2022 11:00-0500 SaO2% (BldA) [Mass fraction] 93 % Alissa Major PLATE SENSITIZER.AGRICULTURAL PRODUCE WASHER Work Phone: [facility] 01-12-2022 11:00-0500 Systolic blood pressure 96 mm[Hg] Alissa Major PLATE SENSITIZER.AGRICULTURAL PRODUCE WASHER Work Phone: [facility] 01-12-2022 10:12-0500 Body temperature 97.9 [degF] Alissa Major PLATE SENSITIZER.AGRICULTURAL PRODUCE WASHER Work Phone: [facility] 01-12-2022 10:12-0500 Respiratory rate 18 /min Alissa Major PLATE SENSITIZER.AGRICULTURAL PRODUCE WASHER Work Phone: [facility] 11-17-2021 15:59-0400 Body height 193 cm No Reeder DO Work Phone: [facility] 11-17-2021 15:59-0400 Body weight 111.58 kg No Reeder DO Work Phone: [facility] 10-03-2022 15:59-0400 Diastolic blood pressure 59 mm[Hg] No Reeder DO Work Phone: [facility] 11-17-2021 15:59-0400 Heart rate 86 /min No Reeder DO Work Phone: [facility] 11-17-2021 15:59-0400 SaO2% (BldA) [Mass fraction] 97 % No Reeder DO Work Phone: [facility] 11-17-2021 15:59-0400 Systolic blood pressure 104 mm[Hg] No Reeder DO Work Phone: [facility] Encounters Encounter Date Encounter Type Care Provider Facility Start: 09-17-2023 End: 09-17-2023 ambulatory NI CABRERA Not Available Start: 09-02-2023 End: 09-02-2023 ambulatory [facility] Start: 06-17-2023 End: 06-17-2023 ambulatory NI CABRERA Not Available Start: 05-19-2023 End: 05-19-2023 ambulatory CAITY [facility] Start: 04-11-2023 End: 04-11-2023 ambulatory Devon Moreira Other [facility] Other Start: 04-11-2023 Telephone encounter Devon Moreira [facility] Start: 03-18-2023 End: 03-18-2023 Office outpatient visit 25 minutes Ni Cabrera DO Work Phone: [facility] 230 Comment on above: 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 ([facility]/HCC) (Primary Dx); 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); 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); Type 1 diabetes mellitus with hypoglycemia and without coma (CMS/HCC); 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 ([facility]/HCC) Start: 03-18-2023 End: 03-18-2023 ambulatory NI CABRERA Not Available Start: 02-17-2023 End: 02-17-2023 ambulatory Devon Moreira Other [facility] Other Start: 02-17-2023 Telephone encounter Devon Moreira [facility] Start: 01-14-2023 End: 01-14-2023 ambulatory Devon Moreira Other [facility] Other Start: 01-14-2023 Sbsq nursing facil c are/day minor complj 15 min [facility] Start: 12-10-2022 End: 12-10-2022 ambulatory Devon Moreira Other [facility] Other Start: 12-10-2022 Sbsq nursing facil c are/day minor complj 15 min [facility] Start: 11-12-2022 End: 11-12-2022 ambulatory Devon Moreira Other [facility] Other Start: 11-12-2022 Sbsq nursing facil c are/day minor complj 15 min [facility] Start: 10-16-2022 Refill Asia Pike MD Work Phone: [facility] Comment on above: Med Change Request Start: 10-12-2022 End: 10-12-2022 ambulatory Devon Moreira Other [facility] Other Start: 10-12-2022 Telephone encounter Devon NUNEZ [facility] Start: 10-08-2022 End: 10-08-2022 ambulatory Devon Moreira Other [facility] Other Start: 10-08-2022 Sbsq nursing facil c are/day new problem 25 min [facility] Start: 09-22-2022 Refill [facility] Comment on above: Rx Refills Start: 09-10-2022 End: 09-10-2022 ambulatory Devon Moreira Other [facility] Other Start: 09-10-2022 Sbsq nursing facil c are/day new problem 25 min [facility] Start: 09-09-2022 End: 09-09-2022 ambulatory SARTHAK [facility] Start: 08-06-2022 End: 08-06-2022 ambulatory Devon Moreira Other [facility] Other Start: 08-06-2022 Sbsq nursing facil c are/day new problem 25 min Devon Moreira [facility] Start: 07-22-2022 End: 07-22-2022 ambulatory Devon Moreira Other [facility] Other Start: 07-22-2022 Telephone encounter [facility] Start: 07-20-2022 End: 07-20-2022 ambulatory Sadia Jeff Facility:[facility] Start: 07-20-2022 End: 07-20-2022 ambulatory DO Devon Moreira Work Phone: [facility] Work Phone: Start: 07-20-2022 End: 07-20-2022 Discharged Recurring DO Devon Moreira Work Phone: [facility] [place] Work Phone: Start: 07-13-2022 End: 07-13-[address] DEVON MOREIRA Facility:[facility]1 Start: 07-10-2022 End: 07-10-[address] DEVON MOREIRA Facility:[facility] Start: 07-03-2022 End: 07-03-[address] DEVON MOREIRA Facility:[facility] Start: 06-26-2022 End: 06-26-[address] DEVON MOREIRA Facility:[facility] Start: 06-26-2022 End: 06-26-[address] DEVON MOREIRA Facility:[facility] Start: 06-25-2022 End: 06-25-2022 ambulatory Devon Moreira Other [facility] Other Start: 06-25-2022 Sbsq nursing facil c are/day minor complj 15 min Devon Moreira [facility] Start: 06-19-2022 End: 06-19-[address] DEVON MOREIRA Facility:[facility] Start: 06-15-2022 End: 07-15-2022 ambulatory SHAIKH Kate MURRAY Facility:[facility] Start: 06-12-2022 End: 06-12-[address] DOCTOR WALSH Facility:[facility] Start: 06-05-2022 Sbsq nursing facil c are/day new problem 25 min Devon Moreira [facility] Start: 06-05-2022 End: 06-05-[address] DEVON MOREIRA [facility] Other Start: 05-29-2022 End: 05-29-[address] DEVON MOREIRA Facility:[facility] Start: 05-22-2022 End: 05-22-[address] DEVON MOREIRA Facility:[facility] Start: 05-20-2022 End: 05-20-[address] DEVON MOREIRA Facility:[facility] Start: 05-18-2022 End: 06-12-2022 ambulatory SHAIKH Kate MURRAY Facility:[facility] Start: 05-15-2022 End: 05-15-[address] DEVON MOREIRA Facility:[facility] Start: 05-13-2022 End: 05-13-2022 ambulatory Van Olivarez APRN.AGRICULTURAL PRODUCE WASHER Work Phone: [facility] Comment on above: results Start: 05-13-2022 E-mail encounter fro m caregiver Van Olivarez APRN.AGRICULTURAL PRODUCE WASHER Work Phone: [facility] Start: 05-08-2022 End: 05-08-[address] DEVON MOREIRA Facility:[facility] Start: 05-07-2022 End: 05-07-2022 ambulatory Devon Moreira Other [facility] Other Start: 05-07-2022 Sbsq nursing facil c are/day new problem 25 min Devon Moreira [facility] Start: 05-06-2022 End: 05-06-2022 ambulatory [...] Facility:[facility]1 Start: 04-13-2022 End: 04-13-[address] DVEON MOREIRA Facility:[facility]1 Start: 04-02-2022 ambulatory Van cortes APRN.AGRICULTURAL PRODUCE WASHER Work Phone: [facility] Start: 04-01-2022 End: 04-01-[address] DEVON MOREIRA Facility:[facility]1 Start: 03-22-2022 Refill Asia Pike MD Work Phone: [facility] Comment on above: Med Change Request Start: 03-21-2022 ambulatory SHAIKH Kate MURRAY Facilit y:H1 Start: 03-11-2022 End: 03-11-[address] DEVON MOREIRA Facility:[facility]1 Start: 02-27-2022 Refill Samira Serna [facility] Comment on above: Rx Refills Start: 02-26-2022 End: 02-26-2022 ambulatory DEVON MOREIRA Facility:[facility] Start: 02-26-2022 End: 02-26-2022 Patient encounter [...] Facility:[facility]1 Start: 02-05-2022 End: 02-06-2022 [facility] Start: 02-05-2022 End: 02-05-2022 Patient encounter procedure [facility] Work Phone: [facility] Comment on above: Kidney replaced by t ransplant (Primary Dx); 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; rn long term care current use of immunosuppressive drug Start: 01-26-2022 End: 01-26-[address] DEVON MOREIRA Facility:[facility]1 Start: 01-20-2022 Telephone encounter Van Olivarez APRN.AGRICULTURAL PRODUCE WASHER Work Phone: [facility] Comment on above: Results Start: 01-19-2022 End: 01-19-[address] DEVON MOREIRA Facility:[facility]1 Start: 01-16-2022 ambulatory SHAIKH Kate Kevin y:H1 Start: 01-12-2022 End: 01-12-2022 Subsequent hospital visit by physician Alissa Chavira APRN.AGRICULTURAL PRODUCE WASHER Work Phone: Angio Comment on above: ILIANA (acute kidney in jury) ([facility]) [N17.9] Start: 12-30-2021 End: 12-30-2021 ambulatory Paresh Fonseca MD Work Phone: Infectious Disease Comment on above: MRSA bacteremia (Arabella munira Dx); Diabetic foot ulcer with osteomyelitis (HCC) Start: 12-30-2021 End: 12-30-2021 Telemedicine consultation with patient Paresh Fonseca MD Work Phone: [facility] Start: 12-29-2021 End: 12-29-[address] [...] Start: 12-08-2021 Orders Only Artur Burger ry PLATE SENSITIZER.AGRICULTURAL PRODUCE WASHER Work Phone: [facility] Comment on above: Kidney replaced by t ransplant (Primary Dx) Start: 12-07-2021 ambulatory Paresh Fonseca MD Work Phone: [facility] Comment on above: CoPat Start (copat s top 12/27/21) Start: 12-05-2021 Telephone encounter Paresh Fonseca MD Work Phone: Infectious Disease Comment on above: Patient Update (evus held discussion/) Start: 12-01-2021 Follow-up encounter [facility] Provider [facility] Start: 12-01-2021 Patient encounter procedure [facility] Prov ider [facility] Department Start: 11-23-2021 End: 11-28-2021 Evaluation and [...] Start: 11-14-2021 End: 11-15-2021 ambulatory ASHLEY Cortes [facility] Facility:H1 Start: 10-24-2021 End: 11-15-2021 ambulatory SHAIKH Kate MURRAY Facility:[facility]1 Start: 10-22-2021 End: 10-23-2021 ambulatory ASHLEY Cortes [facility] Facility:H1 Start: 10-06-2021 ambulatory Van cortes PLATE SENSITIZER.AGRICULTURAL PRODUCE WASHER Work Phone: [facility] Start: 09-30-2021 [...] Request Start: 06-05-2021 Telephone encounter Van Olivarez PLATE SENSITIZER.AGRICULTURAL PRODUCE WASHER Work Phone: [facility] Comment on above: Results Start: 02-05-2021 End: 02-13-2021 ambulatory UNKNOWN PROVIDER Facility:[facility] Procedures Date Procedure Procedure Detail Performing Clinician Start: 05-19-2023 Follow-up visit Follow-up CAITY IBRAHIM Start: 03-18-2023 Hemoglobin glycosyla rk a1c Ni Cabrera DO Work Phone: Start: 02-05-2022 Creatinine other source Asia Pike MD Work Phone: Start: 02-05-2022 Urnls dip stick/tabl et rgnt auto w/o microscopy Asia Pike MD Work Phone: Start: 01-12-2022 Prothrombin time Alissa Chavira APRN.AGRICULTURAL PRODUCE WASHER Work Phone: Start: 12-01-2021 PACEMAKER CLINIC CHECK [facility] Provider Start: 11-29-2021 Microscopic examinat ion of blood, culture DR PROSPER LEES Comment on above: Performed By: #### B [id number] ####[facility] [address] [place], [place] [address]HwSkylar Leal Start: 11-27-2021 Insertion of Infusio n [...] renal transplant KIDNEY TRANSPLANT STATUS Van Olivarez PLATE SENSITIZER.AGRICULTURAL PRODUCE WASHER Work Phone: History of renal transplant Kidney replaced by transplant Artur Chen PLATE SENSITIZER.AGRICULTURAL PRODUCE WASHER Work Phone: History of renal transplant Kidney replaced by transplant [facility] Work Phone: History of renal transplant Devon Moreira Other History of renal transplant Kidney replaced by transplant Asia Pike MD Work Phone: History of renal transplant Devon Moreira Other Plan of Treatment Date Care Activity Detail Author Start: 06-17-2023 End: 06-17-2023 Patient encounter procedure 06/17/2023 2:15 PM EDT Office Visit [facility] [address] [place] [address] Ni Cabrera DO [address] [place] [address] [facility] [address] Start: 06-16-2023 Hemoglobin A1c measurement Diabetes: Hemoglobin A1C [facility] Start: 02-26-2023 BP CONTROLLED (<130/80) BP CONTROLLE D (<130/80) [facility] Start: 02-05-2023 BP CONTROLLED (<130/80) BP CONTROLLE D (<130/80) [facility] Start: 01-12-2023 BP CONTROLLED (<130/80) BP CONTROLLE D (<130/80) [facility] Start: 11-17-2022 BP CONTROLLED (<130/80) BP CONTROLLE D (<130/80) [facility] Start: 10-16-2022 Influenza vaccination [facility] Start: 05-15-2022 Medicare Annual Wellness (AWV) Medicare Annual Wellness (AWV) [facility] Start: 04-08-2022 BP CONTROLLED (<130/80) BP CONTROLLE D (<130/80) [facility] Start: 02-15-2022 ADVANCE DIRECTIVE DISCUSSION ADVANCE DIRECTIVE DISCUSSION [facility] Start: 02-15-2022 DEPRESSION ASSESSMENT DEPRESSION ASS ESSMENT [facility] Start: 02-05-2022 COVID-19 VACCINE (5 - Yung risk series) COVID-19 VACCINE (5 - Yung risk series) [facility] Start: 11-27-2021 COVID-19 VACCINE (4 - Booster for Yung series) COVID-19 VACCINE (4 - Booster for Yung series) [facility] Start: 11-04-2021 Hemoglobin A1c/Hemoglobin.total in Blood HBA1C [facility] Start: 10-16-2021 Influenza vaccination C [facility] Start: 03-26-2021 COVID-19 VACCINE (3 - Yung risk 3-dose series) COVID-19 VACCINE (3 - Yung risk 3-dose series) [facility] Start: 03-26-2021 COVID-19 VACCINE (3 - Yung risk series) COVID-19 VACCINE (3 - Yung risk series) [facility] Start: 02-15-2021 ADVANCE DIRECTIVE DISCUSSION ADVANCE DIRECTIVE DISCUSSION [facility] Start: 02-15-2021 DEPRESSION ASSESSMENT DEPRESSION ASS ESSMENT [facility] Start: 01-05-2016 Hepatitis B screening URINE AL BUMIN:CREATININE RATIO [facility] Start: 07-31-2015 Pneumococcal Vaccine : 65+ Years (3 - PCV) Pneumococcal Vaccine: 65+ Years (3 - PCV) [facility] Start: 04-06-2015 Hemoglobin A1c/Hemoglobin.total in Blood HBA1C [facility] Start: 11-22-2010 Hepatitis B surface antibody level LDL CHOLESTEROL [facility] Start: 2009 ADULT PREVNAR-13 ADULT PREVNAR-13 [facility] Start: 2009 PNEUMOVAX AGE 65 AND OVER WITH 5YR LOOKBACK (#1) PNEUMOVAX AGE 65 AND OVER WITH 5YR LOOKBACK (#1) [facility] Start: 1994 SHINGRIX VACCINE (1 of 2) SHINGRIX VACCINE (1 of 2) [facility] Start: 10-18-1963 HEPATITIS A (1 of 2 - Risk 2-dose series) HEPATITIS A (1 of 2 - Risk 2-dose series) [facility] Start: 10-18-1963 Hepatitis A Vaccine (1 of 2 - Risk 2-dose series) Hepatitis A Vaccine (1 of 2 - Risk 2-dose series) [facility] Start: 10-18-1963 SHINGRIX VACCINE (1 of 2) SHINGRIX VACCINE (1 of 2) [facility] Start: 10-18-1963 Urine microalbumin profile [facility] Start: 1962 ANNUAL PCP TEAM CONSERVATION SCIENTIST MATTHEW DISEASE VISIT ANNUAL PCP TEAM CHRONIC DISEASE VISIT [facility] Start: 1956 Adult depression screening assessment DEPRESSION SCREENING [facility] Start: 1954 3 comp foot exam completed DIABETIC FOOT EXAM [facility] Start: 1954 Glaucoma screening Diabetes: R etinopathy Screening [facility] Start: 1954 Hepatitis C antibody , confirmatory test DILATED RETINAL EXAM [facility] Start: 1950 Pneumococcal Vaccine : 65+ (1 - PCV) Pneumococcal Vaccine: 65+ (1 - PCV) [facility] Start: 1950 PNEUMOCOCCAL: 65+ (1 - PCV) PNEUMOCOCCAL: 65+ (1 - PCV) [facility] Start: 1945 HEPATITIS A (1 of 2 - Risk 2-dose series) HEPATITIS A (1 of 2 - Risk 2-dose series) [facility] URINALYSIS, REFLEX MICROSCOPIC URINALYSIS, REFLEX MICROSCOPIC Lab Routine Screening for genitourinary condition Ordered: 10/06/2021 [facility] Work Phone: Comment on above: Ordered: 10/06/2021 URINALYSIS, REFLEX MICROSCOPIC URINALYSIS, REFLEX MICROSCOPIC Lab Routine Screening for genitourinary condition Ordered: 04/02/2022 [facility] Work Phone: Comment on above: Ordered: 04/02/2022 End: 11-17-2022 US LEG ARTERIAL PERIPH UNL VAS LAB US LEG ARTERIAL PERIPH UNL VAS LAB Vascular Lab Routine PAD (peripheral artery disease) (HCC) Nonhealing ulcer of heel (HCC) 1 Occurrences starting 11/17/2021 until 11/17/2022 [facility] Work Phone: Comment on above: 1 Occurrences starti ng 11/17/2021 until 11/17/2022 End: 11-17-2022 US LEG VEIN DVT UNL VAS LAB US LEG VEIN DVT UNL VAS LAB Vascular Lab Routine Acute deep vein thrombosis (DVT) of proximal end of right lower extremity (HCC) 1 Occurrences starting 11/17/2021 until 11/17/2022 [facility] Work Phone: Comment on above: 1 Occurrences starti ng 11/17/2021 until 11/17/2022 [facility] & VAS [facility] Immunizations Immunization Date Immunization Notes Care Provider Adam gonzalez 12-11-2021 COVID-19 booster vaccine, age 12+ yr, bivalent ([employer]) Paresh Fonseca MD Work Phone: [facility] 12-11-2021 influenza, high-dose , quadrivalent vaccine (FLUZONE HIGH DOSE QUADRIVALENT) Paresh Fonseca MD Work Phone: [facility] 12-11-2021 influenza virus vaccine, unspecified formulation [employer] [facility] 10-24-2021 influenza, high dose seasonal, preservative-free Ni Petznick DO Work Phone: [facility] 01-19-2019 influenza, high dose seasonal, preservative-free Ni Petznick DO Work Phone: [facility] 11-25-2017 Seasonal trivalent influenza vaccine, adjuvanted, preservative free Ni Petznick DO Work Phone: [facility] 11-05-2016 influenza, high dose seasonal, preservative-free Nining Sandhuick DO Work Phone: [facility] 07-30-2014 pneumococcal polysaccharide vaccine, 23 valent Ni Petznick DO Work Phone: [facility] 03-09-2011 influenza virus vaccine, unspecified formulation Avn Lard PLATE SENSITIZER.AGRICULTURAL PRODUCE WASHER Work Phone: [facility] 12-17-2007 influenza virus vaccine, unspecified formulation Van Lard PLATE SENSITIZER.AGRICULTURAL PRODUCE WASHER Work Phone: [facility] Work Phone: 02-11-2006 influenza virus vaccine, unspecified formulation Van Lard PLATE SENSITIZER.AGRICULTURAL PRODUCE WASHER Work Phone: [facility] Work Phone: 12-07-2003 influenza virus vaccine, unspecified formulation Van Lard PLATE SENSITIZER.AGRICULTURAL PRODUCE WASHER Work Phone: [facility] Work Phone: 12-07-2003 pneumococcal polysaccharide vaccine, 23 valent Van Krused PLATE SENSITIZER.[facility] Work Phone: [facility] Work Phone: NEGATED: Highlighted row has not occurred!12-10-2021 COVID-19 booster vaccine, age 12+ yr, bivalent ([employer]) Paresh Fonseca MD Work Phone: [facility] NEGATED: Highlighted row has not occurred!12-10-2021 influenza, high-dose, quadrivalent vaccine (FLUZONE HIGH DOSE QUADRIVALENT) Paresh Fonseca MD Work Phone: [facility] Payers Date Payer Category Payer Medicare MEDICARE MEDICAR E A AND B [id number] 2009-Present [phone] [place] [address] Medicare [id number] 2009 Medicare [id number] [id number] .[id number] 2009 Unknown [employer] [place] [employer] [employer] [place] [employer] MEDICARE SUPPLEMENT [id number] 2009-Present [phone] [id number] [employer] [place] [address] Indemnity [id number] .[id number] 2009 Unknown [id number]. 1.13.159.2.7.3 .350527.315 2009 Unknown [id number] 2.16.8 40.1.365015.19 2009 Unknown [id number] 1959 Medicare [id number] 1959 Self-pay 1944 Unknown [id number] 2.16.840.1.918214.3.579.2.732 1944 Unknown [id number] 2.16.840.1.693551.3.579.2.593 1944 Unknown [id number] 2.16.840.1.736449.3.579.2.593 1944 Unknown [id number] 2.16.840.1.608557.3.579.2.593 1944 Unknown [id number] 2.16.840.1.141263.3.579.2.593 1944 Unknown [id number] 2.16.840.1.543086.3.579.2.593 1944 Unknown [id number] 2.16.840.1.571552.3.579.2.593 1944 Unknown [id number] 2.16.840.1.914656.3.579.2.593 1944 Unknown [id number] 2.16.840.1.129904.3.579.2.593 1944 Unknown [id number] 2.16.840.1.768690.3.579.2.593 1944 Unknown [id number] 2.16.840.1.641387.3.579.2.593 1944 Unknown [id number] 2.16.840.1.282326.3.579.2.593 1944 Unknown [id number] 2.16.840.1.346086.3.579.2.593 1944 Unknown [id number] 2.16.840.1.932665.3.579.2.593 1944 Unknown [id number] 2.16.840.1.004143.3.579.2.593 1944 Unknown [id number] 2.16.840.1.678639.3.579.2.593 1944 Unknown [id number] 2.16.840.1.683265.3.579.2.593 1944 Unknown [id number] 2.16.840.1.502559.3.579.2.593 1944 Unknown [id number] 2.16.840.1.358712.3.579.2.593 1944 Unknown [id number] 2.16.840.1.822788.3.579.2.593 1944 Unknown [id number] 2.16.840.1.532480.3.579.2.593 1944 Unknown [id number] 2.16.840.1.313832.3.579.2.593 1944 Unknown [id number] 2.16.840.1.311122.3.579.2.593 1944 Unknown [id number] 2.16.840.1.154199.3.579.2.593 1944 Unknown [id number] 2.16.840.1.628418.3.579.2.593 1944 Unknown [id number] 2.16.840.1.825364.3.579.2.593 1944 Unknown [id number] 2.16.840.1.886580.3.579.2.593 1944 Unknown [id number] 2.16.840.1.545486.3.579.2.593 1944 Unknown [id number] 2.16.840.1.901835.3.579.2.593 1944 Unknown [id number] 2.16.840.1.019093.3.579.2.593 1944 Unknown [id number] 2.16.840.1.723550.3.579.2.593 1944 Unknown [id number] 2.16.840.1.579070.3.579.2.593 1944 Unknown [id number] 2.16.840.1.826359.3.579.2.593 1944 Unknown [id number] 2.16.840.1.484715.3.579.2.593 1944 Unknown [id number] 2.16.840.1.300168.3.579.2.593 1944 Unknown [id number] 2.16.840.1.714302.3.579.2.593 1944 Unknown [id number] 2.16.840.1.406685.3.579.2.593 1944 Unknown [id number] 2.16.840.1.651402.3.579.2.593 1944 Unknown [id number] 2.16.840.1.768146.3.579.2.593 1944 Unknown [id number] 2.16.840.1.690971.3.579.2.593 1944 Unknown [id number] 2.16.840.1.834523.3.579.2.593 1944 Unknown [id number] 2.16.840.1.787484.3.579.2.593 1944 Unknown [id number] 2.16.840.1.529562.3.579.2.593 1944 Unknown [id number] 2.16.840.1.508208.3.579.2.593 1944 Unknown [id number] 2.16.840.1.698063.3.579.2.593 1944 Unknown [id number] 2.16.840.1.051132.3.579.2.593 1944 Unknown [id number] 2.16.840.1.517914.3.579.2.593 1944 Unknown [id number] 2.16.840.1.400947.3.579.2.125 9 1944 Unknown [id number] 2.16.840.1.869148.3.579.2.125 9 1944 Unknown [id number] 2.16.840.1.664834.3.579.2.125 9 Medicare Medicare Outpatient [id number] 2T [id number] Unknown [id number] 2.16.840.1.076206.3.579.2.593 Unknown [id number] 2.16.840.1.098406.3.579.2.593 Unknown [id number] 2.16.840.1.301432.3.579.2.531 Social History Date Type Detail Facility Start: 03-09-2011 End: 07-07-2022 Tobacco smoking status [facility] Ex-smoker [facility] Work Phone: End: 02-15-1975 History of tobacco use Current smoker [facility] Work Phone: End: 02-15-1975 History of tobacco use Cigarette Smoker [facility] Work Phone: Start: 04-08-2021 End: 02-26-2022 Alcohol intake Current drinker of alcohol (finding) [facility] Start: 1945 Sex Assigned At Not on file [facility] Start: 03-09-2011 End: 10-20-2022 Cigarettes smoked current (pack per day) - Reported 1 [facility] Work Phone: Start: 03-09-2011 End: 02-26-2022 Tobacco use and exposure Smokeless tobacco non-user [facility] Start: 09-25-2021 History SDOH Financial 5 [facility] Start: 09-25-2021 History SDOH Food Worry 1 [facility] Start: 09-25-2021 History SDOH Transpo rt Med 2 [facility] Start: 09-14-2021 End: 01-12-2022 Exposure to SARS-CoV-2 (event) Not sure [facility] Start: 02-26-2022 End: 10-20-2022 Sex Assigned At [facility] Work Phone: Start: 1945 Sex Assigned At Male F [facility] How hard is it for y ou to pay for the very basics like food, housing, medical care, and heating Not hard at all [facility] Work Phone: (I/We) worried shiloh er (my/our) food would run out before (I/we) got money to buy more. Never true [facility] Work Phone: In the past 12 month s, was there a time when you were not able to pay the mortgage or rent on time? No [facility] Work Phone: Start: 03-18-2023 Alcohol intake Ex-drinker (finding) [facility] How often to you hav e a drink containing alcohol? Never [facility] Medical Equipment Procedure Code Equipment Code Equipment Original Text Equipment Identifier Dates Tray Powerline S urecuff 5fr Polyurethane Catheter 1 Lumen Microintroducer - [id number] Start: 12-06-2021 Clinical Notes 06-05-2021 to 05-19-2023 Note Date & Type Note Facility 05-19-2023 Note [place] [facility]rophys[facility] Progress Note Reason for visit: follow [...] at about 50-60 systolic. patient with friend/ motorcoach driver from facility, we will take patient to the ER for evaluation ---- --------- Per dr. Alvarez 03/2021 Mr. Almonte Howland , presents to clinic for routine follow [...] of the right coronary artery with robust [id number]-ftvlc collaterals. 5. Normal global left ventricular systolic [...] Follow up with Dr. Galvez in the [facility] in the next 2 weeks; he may follow up with Dr. Orosco as needed for interventional issues. 5. Follow up wi (more content not included)... [facility] 04-11-2023 Evaluation note Encounter Date Diagnosis Assessment [...] (ICD-10 - Z89.619) WC dependent. Pain controlled [facility] Other 02-01-2024 History of Present illness Narrative* [...] been checking his blood glucose with a [employer] shaan 14 CGM - READER- on a [...] office. He is being transported by a motorcoach driver. He states he took insulin breakfast [...] mellitus with stage 3a chronic kidney disease ([facility]/HCC) - Primary Relevant Medications Lantus SoloStar [...] in the morning. CONTINUOUS BLOOD GLUC SENSOR (CiviconSTYLE SHAAN 14 DAY SENSOR) MISC Inject 1 [...] mouth in the morning. documented in this encounterSaint [facility] [id number] Evaluation note* Encounter Date Diagnosis Assessment Notes [...] are maintaining regular scheduled appts with their heel padder. No bleeding complications Dec, Hyperlipidemia LDL [...] fluid balance and to avoid dehydration. Dec, rn long term care (current) use of insulin (ICD-10 - Z79.4) [facility] Other 10-26-2023 Evaluation note* Encounter Date Diagnosis Assessment Notes Treatment Notes Treatment Clinical Notes Nov, Longstanding persistent atrial fibrillation (ICD-10 - I48.11) This patient is in NSR or rate controlled. This patient is anticoagulated to prevent thromboembolic events. They are maintaining regular scheduled appts with their heel padder. No bleeding complications Nov, Hyperlipidemia LDL [...] Z94.0) Monthly labs to transplant clinic Nov, [facility] (current) use of insulin (ICD-10 - Z79.4) [facility] Other 09-28-2023 Evaluation note* Encounter Date Diagnosis [...] are maintaining regular scheduled appts with their heel padder. No bleeding complications Oct, Type 1 [...] - Z94.0) Continue routine surveillance labs. Oct, rn long term care (current) use of insulin (ICD-10 - Z79.4) [facility] Other 09-01-2023 Miscellaneous Notes* Telephone Encounter - Mary Martinez - 10/16/2022 1:08 PM EDT Pharmacy comment: REQUEST FOR 90 DAYS PRESCRIPTION. DX Code Needed. 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 No bleeding complications Sep, Type 1 [...] risk for cerebrovascular and cardiovascular disease. Sep, [facility] (current) use of insulin (ICD-10 - Z79.4) Sep, Kidney transplant status (ICD-10 - Z94.0) f/u transplant clinic Continue surveillance labs [facility] Other 08-08-2023 Miscellaneous Notes* Telephone Encounter - Ariadna Mcdowell Tech - 09/22/2022 8:58 AM EDT Pharmacy requesting refills as follows: Requested Prescriptions Pending Prescriptions Disp Refills tacrolimus IR (PROGRAF) 1 mg capsule Sig: Take 1 capsule by mouth DAILY AT 6 PM. Please review and advise. Ariadna Mcdowell, documented in this encounterC[facility]07[facility] Evaluation note* Encounter Date Diagnosis Assessment Notes Treatment Notes Treatment Clinical Notes Aug, Longstanding persistent atrial fibrillation (ICD-10 - I48.11) This patient is in NSR or rate controlled. This patient is anticoagulated to prevent thromboembolic events. They are maintaining regular scheduled appts with their heel padder. No s/s bleeding Aug, Type 1 [...] risk for cerebrovascular and cardiovascular disease. Aug, rn long term care (current) use of insulin (ICD-10 - Z79.4) Aug, Kidney transplant status (ICD-10 - Z94.0) Continue close surveillance w/ labs [facility] Other 07-26-2023 NoteUT Electrophysiology Consult Note Reason [...] at about 50-60 systolic. patient with friend/ motorcoach driver from facility, we will take patient to the ER for evaluation --------- Per dr. Alvarez 03/2021 Mr. Almonte Howland , presents to clinic for routine follow [...] of the right coronary artery with robust jtls-xo-yyazy collaterals. 5. Normal global left ventricular systolic [...] Follow up with Dr. Galvez in the [facility] in the next 2 weeks; he may follow up with Dr. Orosco as needed for interventional issues. 5. Follow up with Dr. Devon Moreira as scheduled. PMH: Past Medical History: Diagnosis Date Abnormal ECG Arrhythmia Atrial fibrillation (CMS/HCC) Chronic kidney disease Coronary artery disease Diabetes mellitus (CMS/HCC) (more content not included)...[facility]07-26-2023 NotePatient here for 1.5 year follow up and device check. Lightheaded in the office today, as BP is very low. He denies chest pain, SOB, palpitations, and bleeding on warfarin. Had routine labs last week. Review of Systems Musculoskeletal: Positive for arthritis, joint pain and myalgias. Neurological: Positive for light-headedness. All other systems reviewed and are negative.[facility] 08-06-2022 Evaluation note* Encounter Date Diagnosis Assessment [...] are maintaining regular scheduled appts with their heel padder. No bleeding complications Jul, Type 1 [...] risk for cerebrovascular and cardiovascular disease. Jul, [facility] (current) use of insulin (ICD-10 - Z79.4) Jul, Kidney transplant status (ICD-10 - Z94.0) Monthly labs, ongoing surveillance from transplant clinic [facility] Other 05-15-2023 Progress note Author Sadia Aguilar [facility] June 29, 2022 2:47pm Note Date/Time June 29, 2022 2:46p m [facility] [address] [place] [address] Wound Center Provider Note Signed Patient: Alex Almonte MR#: [id number] : 1945 Acct:[id number] Age/Sex: 76 / M Copies to: DO Sadia Whyte APRN~ HPI Date of Visit Date of Visit: Date of Service: 06/29/2022 Time of Service: 14:45 Narrative HPI: 12/30/21 Alex is a 76 year old male presenting to [facility] wound care for aninitial visit for eval and treatment of a sacral/coccyx area pressure ulcer. He resides at [facility] There is an HOUSE NURSE present for the visit. Medicalhoney gel will [...] his brief that was cleaned by this newswriter as well as another nursing staff member, [...] from initial visit here Mode of Arrival/ Chief Of Surgery: Facility vehicle Assistive Device Used Today: Wheelchair and Indra Lives with:: Care/Nursing Facility Appetite Description: Within Normal Limits Who helps w/ dressing change?: Nursing Facility Why Do You Need Help?: Can't Reach Ulcer, Limited mobility and Taxing effort to leave home Smoking Status: Former smoker [facility] Medical History (Updated 03/03/22 @ 14:41 [...] Ulcer/Injury Staging: Unstageable Bed Appearance: Beefy Red, [place], Yellow and [place]led [place]ges Percent of Wound [...] <Electronically signed by DAVID Aguilar> 06/29/22 [facility] Work Phone: 1(664) 155-576105-11-2023 Evaluation note* Encounter Date Diagnosis Assessment Notes [...] are maintaining regular scheduled appts with their heel padder. No bleeding complications June, Hyperlipidemia LDL goal <100 (ICD-10 - E78.5) Instructed on diet and exercise with continued statin therapy.Discussed the beneficial effects of lowering cholesterol in reducing the risk for cerebrovascular and cardiovascular disease. June, rn long term care (current) use of insulin (ICD-10 - Z79.4) June, Kidney transplant status (ICD-10 - Z94.0) No s/s rejection [facility] Other 04-24-2023 Progress note Author Sadia Aguilar [facility] June 08, 2022 2:10pm Note Date/Time June 08, 2022 2:1 0pm [facility] [address] [place] [address] Wound Center Provider Note Signed Patient: Alex Almonte MR#: [id number] : 1945 Acct:[id number] Age/Sex: 76 / M Copies to: DO Sadia Whyte APRN~ HPI Date of Visit Date of Visit: Date of Service: 06/08/2022 Time of Service: 14:07 Narrative HPI: 12/30/21 Alex is a 76 year old male presenting to [facility] wound care for aninitial visit for eval and treatment of a sacral/coccyx area pressure ulcer. He resides at [facility] There is an HOUSE NURSE present for the visit. Medicalhoney gel will [...] his brief that was cleaned by this newswriter as well as another nursing staff member, [...] from initial visit here Mode of Arrival/ Chief Of Surgery: Facility vehicle Assistive Device Used Today: Wheelchair and Indra Lives with:: Care/Nursing Facility Appetite Description: Within Normal Limits Who helps w/ dressing change?: Nursing Facility Why Do You Need Help?: Can't Reach Ulcer, Limited mobility and Taxing effort to leave home Smoking Status: Former smoker [facility] Medical History (Updated 03/03/22 @ 14:41 [...] Ulcer/Injury Staging: Unstageable Bed Appearance: Beefy Red, [place], Yellow and [place]led [place] Percent of Wound [...] <Electronically signed by DAVID Aguilar> 06/08/22 [address] [facility] Work Phone: 1([phone]) 217-421204-21-2023 Evaluation note* Encounter Date Diagnosis Assessment Notes [...] are maintaining regular scheduled appts with their heel padder. May, [facility] (current) use of insulin (ICD-10 - Z79.4) May, Kidney transplant status (ICD-10 - Z94.0) routine labs per clinic. 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 No open ulcerations present Pain controlled [facility] Other 03-27-2023 Progress note Author Sadia Aguilar [facility] May 11, 2022 1:41pm Note Date/Time May 11, 2022 1:4 0pm [facility] [address] [place] [address] Wound Center Provider Note Signed Patient: Alex Almonte MR#: [id number] : 1945 Acct:[id number] Age/Sex: 76 / M Copies to: DO Sadia Whyte, DAVID~ HPI Date of Visit Date of Visit: Date of Service: 05/11/2022 Time of Service: 13:38 Narrative HPI: 12/30/21 Alex is a 76 year old male presenting to [facility] wound care for aninitial visit for eval and treatment of a sacral/coccyx area pressure ulcer. He resides at [facility] There is an HOUSE NURSE present for the visit. Medicalhoney gel will [...] his brief that was cleaned by this newswriter as well as another nursing staff member, [...] from initial visit here Mode of Arrival/ Chief Of Surgery: Facility vehicle Assistive Device Used Today: Wheelchair and Indra Lives with:: Care/Nursing Facility Appetite Description: Within Normal Limits Who helps w/ dressing change?: Nursing Facility Why Do You Need Help?: Can't Reach Ulcer, Limited mobility and Taxing effort to leave home Smoking Status: Former smoker [facility] Medical History (Updated 03/03/22 @ 14:41 [...] Ulcer/Injury Staging: Unstageable Bed Appearance: Beefy Red, [place] and Yellow Percent of Wound Bed Granulated/Red: [...] <Electronically signed by DAVID Aguilar> 05/11/22 [address] [facility] Work Phone: 1(323) 313-900103-23-2023 Evaluation note* Encounter Date Diagnosis Assessment Notes [...] are maintaining regular scheduled appts with their heel padder. Apr, Type 1 diabetes mellitus with [...] are reviewed at the office visit Apr, FCI (current) use of insulin (ICD-10 - Z79.4) Apr, Kidney transplant status (ICD-10 - Z94.0) Serial labs by clinic Hydrate, avoid NSAIDS [facility] Other 03-10-2023 NoteHNO ID: [id number] Author: Keyur Brown MD Service: ? Author Type: Physician Type: Progress Notes Filed: 04/24/2022 10:32 AM Note Text: Encounter opened in error, patient not seen.[facility]02-28-2023 Progress note Author Sadia Aguilar [facility] April 14, 2022 2:19pm Note Date/Time April 14, 2022 2:18pm [facility] [address] [place] [address] Wound Center Provider Note Signed Patient: Alex Almonte MR#: [id number] : 1945 Acct:[id number] Age/Sex: 76 / M Copies to: Devon Moreira,DO Sadia Aguilar, PLATE SENSITIZER~ HPI Date of Visit Date of Visit: Date of Service: 04/14/2022 Time of Service: 14:18 Narrative HPI: 12/30/21 Alex is a 76 year old male presenting to [facility] wound care for aninitial visit for eval and treatment of a sacral/coccyx area pressure ulcer. He resides at [facility] There is an HOUSE NURSE present for the visit. Medicalhoney gel will [...] his brief that was cleaned by this newswriter as well as another nursing staff member, [...] from initial visit here Mode of Arrival/ Chief Of Surgery: Facility vehicle Assistive Device Used Today: Wheelchair and Indra Lives with:: Care/Nursing Facility Appetite Description: Within Normal Limits Who helps w/ dressing change?: Nursing Facility Why Do You Need Help?: Can't Reach Ulcer, Limited mobility and Taxing effort to leave home Smoking Status: Former smoker [facility] Medical History (Updated 03/03/22 @ 14:41 [...] Ulcer/Injury Staging: Unstageable Bed Appearance: Beefy Red, [place] and Yellow Percent of Wound Bed Granulated/Red: [...] By: <Electronically signed by DAVID Aguilar> 04/14/22[address] [facility] Work Phone: 1(708) 779-893202-16-2023 NotePatient Outreach (KIMBERLY) ALEX ALMONTE ([id number]) 1945 M TRN Date Time Provider Department 04/02/22 VAN OLIVAREZ During your visit today, we recorded the following information about you: Allergies As of Date: 04/02/2022 Noted Allergy Reaction PYRIDOSTIGMINE BROMIDE 08/04/2021 8 - GI Upset Date Reviewed: 02/26/2022 Reviewed by: Braden Abel MA - Fully Assessed Visit Diagnosis:Screening for genitourinary condition [Z13.89] Order(s):URINALYSIS, REFLEX MICROSCOPIC [WRQ3816] Order #: [id number] Prescriptions as of 04/06/2022 - tacrolimus IR [...] by mouth daily with lunch. 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/2002 DIABETES UNCOMPL ADULT-UNCONTRLLED [MVK7043] 02/24/2002 KIDNEY TRANSPLANT STATUS [Z94.0] 09/07/2003 PROPHYLACTIC IMMUNOTHERAPY [Z29.8] 07/30/2006 FPC STEROIDS [AQM0205] 07/30/2006 VITAMIN D DEFICIENCY NOS [E55.9] 09/07/2008 [...] diabetes mellitus with diabetic peripher*11/29/2021 Atherosclerosis of [place] artery of extremity w*11/29/2021 Malnutrition of moderate degree (HCC) [E44.0] 12/01/2021 Dermatitis associated with moisture [L30.8] 12/04/2021 Encounter Status:Closed by [employer] on 04/06/22[facility] 03-30-2022 Miscellaneous Notes* Telephone Encounter - Van [...] Katina Duque documented in this encounterCleveland Clinic [facility]02-07-2023 Progress note Author Sadia Aguilar [facility] March 24, 2022 3:00pm Note Date/Time March 24, 2022 2 :59pm [facility] [address] [place] [address] Wound Center Provider Note Signed Patient: Alex Almonte MR#: [id number] : 1945 Acct:[id number] Age/Sex: 76 / M Copies to: Devon Moreira,DO Sadia Aguilar, PLATE SENSITIZER~ HPI Date of Visit Date of Visit: Date of Service: 03/24/2022 Time of Service: 14:58 Narrative HPI: 12/30/21 Alex is a 76 year old male presenting to [facility] wound care for aninitial visit for eval and treatment of a sacral/coccyx area pressure ulcer. He resides at [facility] There is an HOUSE NURSE present for the visit. Medicalhoney gel will [...] his brief that was cleaned by this newswriter as well as another nursing staff member, [...] from initial visit here Mode of Arrival/ Chief Of Surgery: Facility vehicle Assistive Device Used Today: Wheelchair and Indra Lives with:: Care/Nursing Facility Appetite Description: Within Normal Limits Who helps w/ dressing change?: Nursing Facility Why Do You Need Help?: Can't Reach Ulcer, Limited mobility and Taxing effort to leave home Smoking Status: Former smoker [facility] Medical History (Updated 03/03/22 @ 14:41 [...] Ulcer/Injury Staging: Unstageable Bed Appearance: Beefy Red, [place] and Yellow Percent of Wound Bed Granulated/Red: [...] <Electronically signed by DAVID Aguilar> 03/24/22 [address] [facility] Work Phone: [phone] 538-142101-17-2023 Progress note Author Sadia Augilar [facility] March 03, 2022 2:41pm Note Date/Time March 03, 2022 2 :41pm [facility] [address] [place] [address] Wound Center Provider Note Signed Patient: Alex Almonte MR#: [id number] : 1945 Acct:[id number] Age/Sex: 76 / M Copies to: DO Sadia Whyte APRN~ HPI Date of Visit Date of Visit: Date of Service: 03/03/2022 Time of Service: 14:38 Narrative HPI: 12/30/21 Alex is a 76 year old male presenting to [facility] wound care for aninitial visit for eval and treatment of a sacral/coccyx area pressure ulcer. He resides at [facility] There is an HOUSE NURSE present for the visit. Medicalhoney gel will [...] his brief that was cleaned by this newswriter as well as another nursing staff member, [...] from initial visit here Mode of Arrival/ Chief Of Surgery: Facility vehicle Assistive Device Used Today: Wheelchair and Indra Lives with:: Care/Nursing Facility Appetite Description: Within Normal Limits Who helps w/ dressing change?: Nursing Facility Why Do You Need Help?: Can't Reach Ulcer, Limited mobility and Taxing effort to leave home Smoking Status: Former smoker [facility] Medical History (Updated 03/03/22 @ 14:41 [...] Ulcer Pressure Ulcer/Injury Staging: Unstageable Bed Appearance: [place] and Yellow Percent of Wound Bed Granulated/Red: 90 Percent of Devitalized: 10 Length (cm): 2.2 Width (cm): 1.8 Depth (cm): 1.9 CM Sq: 3.960 Surrounding Tissue Appearance: [place], Hyperpigmented and Satellite lesions Surrounding Tissue Temp: [...] <Electronically signed by DAVID Aguilar> 03/03/22 [address] [facility] Work Phone: [phone] 268-742801-13-2023 Miscellaneous Notes* Telephone Encounter - RAUL Davidson - 02/27/2022 10:24 AM EST Patient phones requesting refills as follows: Per pts sister takes 1 mg in AM and 1 mg in PM Requested Prescriptions Pending Prescriptions Disp Refills tacrolimus IR (PROGRAF) 1 mg capsule Sig: Take 2 capsules by mouth DAILY (6 AM). Please review and advise. RAUL Dvaidson documented in this encounterCleveland Clinic Children'[facility] Rehabilitation01-12-2023 NoteHNO ID: [id number] Author: Hina Peterson MD Service: ? 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 Patient on mycophenolate mofetil , cellcept and prednisone 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) 11/29/2021 Osteomyelitis ([facility]) 11/29/2021 Paroxysmal atrial fibrillation ([facility]) Renal transplant, status post SA node dysfunction ([facility]) s/p pacemaker Type 2 diabetes mellitus with diabetic neuropathy, with long-term current use of insulin ([facility]) 02/24/2002 PAST SURGICAL HISTORY Procedure Laterality Date [...] by mouth daily with lunch. Magic Cup [place] with lunch aspirin, enteric coated (ASPIRIN, ENTERIC COATED) 81 mg EC tablet Take 1 tablet by mouth once daily. predniSONE (DELTASONE) 5 mg tablet TAKE 1 TABLET BY MOUTH EVERY DAY oxyCODONE IR (ROXICODONE) 5 mg immediate release tablet 1-2 tablets by ORAL/FEEDING TUBE route every 3 hours as needed. Food Supplement, Lactose-Free (ENSURE MAX (more content not included)... [facility]01-12-2023 History of Present illness Narrative* Hina Peterson MD - 02/26/2022 4:25 PM EST Images from the original note were not included. Heart , Vascular and Thoracic [facility] DEPARTMENT OF VASCULAR SURGERY OUTPATIENT VISIT DATE [...] [facility] He comes here with a lateral wound eschar. He denies any fevers, chills, or any drainage. He is on anticoagulation. 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 Magic Cup [place] with lunch aspirin, enteric coated (ASPIRIN, ENTERIC [...] 4:26 PM documented in this encounterCleveland Clinic Children'[facility] For Rehabilitation01-05-2023 Miscellaneous Notes* Telephone Encounter - Gwen Beard [...] Home and cell number(Ask for Jignas nurse) [phone] Diagnosis 4 mo f/u wound check Best regards, Yumiko documented in this encounterCleveland Clinic [facility]01-05-2023 Miscellaneous Notes* Telephone Encounter - Augusta Medrano RN - 02/19/2022 11:11 AM EST Alex Almonte's nursing facility, [facility], called regarding elevated tacrolimus level (23.9). Spoke with bedside nurse, mukul Enriquez. Level is from last week- unable to clearly determine if medications were held prior to lab work. Reviewed with nurse morning labs should occur prior to lab draws. Patient is scheduled for repeat labs tomorrow. Will assess new level. Augusta Medrano RN documented in this encounterCleveland Clinic Children'[facility]01-04-2023 Miscellaneous Notes* Telephone Encounter - Martina Rossi [...] Tavares MA documented in this encounterCleveland Clinic Children'S [facility]12-27-2022 Progress note Author Sadia Aguilar [facility] February 10, 2022 3:47pm Note Date/Time February 10, 2022 3:47pm [facility] [address] [place] [address] Wound Center Provider Note Signed Patient: Alex Almonte MR#: [id number] : 1945 Acct:[id number] Age/Sex: 76 / M Copies to: DO Sadia Whyte APRN~ HPI Date of Visit Date of Visit: Date of Service: 02/10/2022 Time of Service: 15:44 Narrative HPI: 12/30/21 Alex is a 76 year old male presenting to [facility] wound care for aninitial visit for eval and treatment of a sacral/coccyx area pressure ulcer. He resides at [facility] There is an HOUSE NURSE present for the visit. Medicalhoney gel will [...] his brief that was cleaned by this newswriter as well as another nursing staff member, few weeks to follow up Subjective Pain Coccyx: Pain Description: Intermittent Pain Intensity: 0 Wound/Ulcer History When did wound start?: 4 weeks ago- from initial visit here Mode of Arrival/ Chief Of Surgery: Facility vehicle Assistive Device Used Today: Wheelchair and Indra Lives with:: Care/Nursing Facility Appetite Description: Within Normal Limits Who helps w/ dressing change?: Nursing Facility Why Do You Need Help?: Can't Reach Ulcer, Limited mobility and Taxing effort to leave home Smoking Status: Former smoker [facility] Medical History (Updated 01/20/22 @ 14:21 [...] Ulcer Pressure Ulcer/Injury Staging: Unstageable Bed Appearance: [place] and Yellow Percent of Wound Bed Granulated/Red: 90 Percent of Devitalized: 10 Length (cm): 2.5 Width (cm): 2.3 Depth (cm): 2.1 CM Sq: 5.750 Surrounding Tissue Appearance: [place], Hyperpigmented and Satellite lesions Surrounding Tissue Temp: [...] <Electronically signed by DAVID Aguilar> 02/10/22 [address] [facility] Work Phone: [phone]) 721-162012-22-2022 NoteHNO ID: [id number] Author: Asia Pike MD Service: ? Author Type: Physician Type: Progress Notes Filed: 02/05/2022 9:38 AM Note Text: Pending Sale To [facility] Follow up Portions of this note [...] date with medications. Patient brought paperwork from [employer] with all medications being received. Patient unsure if they have been drawing labs regularly. Last Tac from 01/19: 12.9 and K 5.9. In need of current labs. Lab orders will be sent with patient and follows as below: Kidney and Pancreas Transplant Standing Lab Orders [address] [place], [place] [address] February 05, 2022 Alex Almonte 1945 [id number] STANDARD TESTING: Diagnosis Codes: Z94.0 Kidney Transplant [...] AT YOUR LABORATORY FACILITY AND FAX TO [phone]. PLEASE CALL [phone]. Provider: Dr. Pike Current Outpatient Medications Medication [...] by mouth daily with lunch. Magic Cup [place] with lunch aspirin, enteric coated (ASPIRIN, ENTERIC COATED) 81 mg EC tablet Take 1 tablet by mouth once daily. atorvastatin (LIPITOR) 40 mg tablet 1 tablet by ORAL/FEEDING TUBE route daily at bedtime. (more content not included)...[facility]12-[facility] History of Present illness Narrative* Asia Pike MD - 02/05/2022 8:20 AM EST Images from the original note were not included. Pending Sale To [facility] Follow up Portions of this note [...] snacks patient declined. Indra scale at [facility]: 166.2 lbs per patient. Bed sore on coccyx causing discomfort. Being changed regularly at [facility]- reported to be smaller around but still as deep. Patient not very up to date with medications. Patient brought paperwork from [employer] with all medications being received. Patient unsure if they have been drawing labs regularly. Last Tac from 01/19: 12.9 and K 5.9. In need of current labs. Lab orders will be sent with patient and follows as below: Kidney and Pancreas Transplant Standing Lab Orders [address] [place], [place] [address] February 05, 2022 Alex Almonte 1945 [id number] STANDARD TESTING: Diagnosis Codes: Z94.0 Kidney Transplant [...] AT YOUR LABORATORY FACILITY AND FAX TO [phone]. PLEASE CALL [phone]. Provider: Dr. Pike Current Outpatient Medications Medication [...] by mouth daily with lunch. Magic Cup [place] with lunch aspirin, enteric coated (ASPIRIN, ENTERIC [...] Pike MD documented in this encounterCleveland Clinic [facility] Rehabilitation12-06-2022 Progress note Author Sadia Aguilar [facility] January 20, 2022 2:21pm Note Date/Time January 20, 2022 2 :21pm [facility] [address] [place] [address] Wound Center Provider Note Signed Patient: Alex Almonte MR#: [id number] : 1945 Acct:[id number] Age/Sex: 76 / M Copies to: Devon Moreira,DO Sadia Aguilar APRN~ HPI Date of Visit Date of Visit: Date of Service: 01/20/2022 Time of Service: 14:17 Narrative HPI: 12/30/21 Alex is a 76 year old male presenting to [facility] wound care for aninitial visit for eval and treatment of a sacral/coccyx area pressure ulcer. He resides at [facility] There is an HOUSE NURSE present for the visit. Medicalhoney gel will [...] from initial visit here Mode of Arrival/ Chief Of Surgery: Facility vehicle Assistive Device Used Today: Wheelchair and Indra Lives with:: Care/Nursing Facility Appetite Description: Within Normal Limits Who helps w/ dressing change?: Nursing Facility Why Do You Need Help?: Can't Reach Ulcer, Limited mobility and Taxing effort to leave home Smoking Status: Former smoker [facility] Medical History (Updated 01/20/22 @ 14:21 [...] Ulcer Pressure Ulcer/Injury Staging: Unstageable Bed Appearance: [place] and Yellow Percent of Wound Bed Granulated/Red: 40 Percent of Devitalized: 60 Length (cm): 5.2 Width (cm): 3.4 Depth (cm): 1.8 CM Sq: 17.680 Surrounding Tissue Appearance: [place] and Hyperpigmented Surrounding Tissue Temp: Warm Drainage [...] Aguilar> 01/20/22 [facility] Work Phone: 1(290) 720-540212-06-2022 Miscellaneous Notes* Telephone Encounter - Van Olivarez APRN.CNP - 01/20/2022 1:12 PM EST Labs noted from yesterday. Pt is currently residing at [facility], I spoke with the Nurse, the results has been addressed by Physician caring for pt. He had been placed on Chlor Con and this has been discontinued and hyperkalemia has been treated. Van Olivarez APRN.CNP documented in this encounterCleveland Clinic Children'[facility] Rehabilitation11-28-2022 Surgical operation note* Brief Op Note - Misbah Landis PA-C - 01/12/2022 10:41 AM EST BRIEF OPERATIVE / PROCEDURE NOTE LOG ID: [id number] SURGERY/PROCEDURE DATE: 01/12/2022 INCISION/PROCEDURE START TIME: 10:32 AM INCISION CLOSE/PROCEDURE END TIME: 10:35 AM SURGEON(S)/PROCEDURALIST(S) AND BODY TEAM MEMBER(S): Misbah Landis PA-C SURGERY/PROCEDURE(S): Removal tunneled vascular access catheter under local anesthesia ANESTHESIA: Procedural Sedation FINDINGS: Catheter removed intact ESTIMATED BLOOD LOSS: 0 ml SPECIMENS: None COMPLICATIONS: None PRE-OP/PRE-PROCEDURE DIAGNOSIS: Foot Ulcer POST-OP/POST-PROCEDURE DIAGNOSIS: Same as Preop SIGNATURE: Misbah Landis PA-C PATIENT NAME: Alex Almonte DATE: January 12, 2022 TIME: 10:42 AM documented in this encounterCleveland Clinic Children'S Hospital For Rehabilitation11-22-2022 Nurse Note* Laxmi Archibald RN - 01/06/2022 1:55 PM EST Pre-procedure instructions: [facility] patient's [facility], [phone] andconfirmed appt. for Gerhard removal scheduled on 01/12/22, at [facility]. If instructions are not followed your procedure [...] Arrival at 9:30am to desk QB-1 (Maryan Drasco) and check in for your procedure. Branch Employment Coordinator/Transportation: How will you be arriving for your procedure? Ambulance service. To be arranged by [facility]. If you develop any of the following symptoms before your procedure, please call [phone]. Chills, joint pain, rash, sore throat, cough, loss of smell, reddened eyes, vomiting, abdominal pains, diarrhea, loss of taste, severe headache, weakness, bruising or bleeding, fever, muscle pain, shortness of breath Recovery expectations: You can expect to be in recovery for 30 minutes following the procedure. Written instructions provided to patient via [employer] If you have any questions please call [phone] documented in this encounterCleveland Clinic Children'[facility]11-15-2022 Progress note Author Sadia Aguilar [facility] December 30, 2021 1:49pm Note Date/Time December 30, 2021 1:49pm [facility] [address] [place] [address] Wound Center Provider Note Signed Patient: Alex Almonte MR#: [id number] : 1945 Acct:[id number] Age/Sex: 76 / M Copies to: DO Sadia Whyte APRN~ HPI Date of Visit Date of Visit: Date of Service: 12/30/2021 Time of Service: 13:44 Narrative HPI: 12/30/21 Alex is a 76 year old male presenting to [facility] wound care for aninitial visit for eval and treatment of a sacral/coccyx area pressure ulcer. He resides at [facility] There is an HOUSE NURSE present for the visit. Medicalhoney gel will [...] start?: 4 weeks ago Mode of Arrival/ Chief Of Surgery: Facility vehicle Assistive Device Used Today: Wheelchair and Indra Lives with:: Care/Nursing Facility Appetite Description: Within Normal Limits Who helps w/ dressing change?: Nursing Facility Why Do You Need Help?: Can't Reach Ulcer, Limited mobility and Taxing effort to leave home Smoking Status: Former smoker [facility] Medical History (Updated 12/30/21 @ 13:49 [...] 0.1 CM Sq: 38.500 Surrounding Tissue Appearance: [place] and Hyperpigmented Surrounding Tissue Temp: Warm Drainage [...] <Electronically signed by DAVID Aguilar> 12/30/21 [address] [facility] Work Phone: 1(673) 796-279711-15-2022 History of Present illness Narrative* Paresh Fonseca [...] rehab facility He is currently at [facility] in [facility] Seen on video together with [...] local wound care following this at [facility] WBC 6.0, creatinine -- 0.8. [...] by mouth daily with lunch. Magic Cup [place] with lunch aspirin, enteric coated (ASPIRIN, ENTERIC [...] is a 76 year old male from [facility]. Here today for copat follow-up for vancomycin x4 weeks for MRSA bacteremia He was transferred from [facility] TO [facility] on 11/28/2021 for further surgical management of infected right heel He has a past medical history of kidney transplant in 2001, left [facility] from previously infected foot ulcers and multiple foot surgeries. History of PAD CAD status post CABG, diabetes, atrial fibrillatioN He originally presented [facility] for having altered mental status [...] 3. Status post right heel I&D at [facility] on 11/24/2021. 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 4. CKD - s/p gerhard placement 5. immunocompromised Status post right open above the ankle [id number]/17 - Enterobacter and MRSA from cultures Gram-positive [...] will need to coordinate with his SNF [phone] --our ID office will need to arrange for IR gerhard removal. Return to ID as needed 10 Minutes spent via virtual visit. SIGNATURE: Paresh Fonseca MD PATIENT NAME: Alex Almonte DATE: December 30, 2021 TIME: 9:52 AM documented in this encounterCleveland Clinic Children'S [facility] For Rehabilitation11-01-2022 Miscellaneous Notes* Telephone Encounter - Sulma Pardo - 12/16/2021 3:13 PM EDT Pt infusion therapy nurse is requesting orders for Stomp ampushield to be taken off pressure relief because it is causing sores on the thigh. Thanks, Sulma Pardo Store Keeper documented in this encounterCleveland Clinic Children'S [facility] For Rehabilitation10-31-2022 Miscellaneous Notes* Telephone Encounter - Gwen Alfredo Adm Asst I - 12/15/2021 4:11 PM EDT Rupa LYLES from [facility] [phone] called to report IV Vancomycin was started until today. Patient missed 3 days, should patient makeup missed doses? Please advise. Gwen Alfredo Adm Asst I documented in this encounterCleveland Clinic Children'[facility] For [facility]10-21-2022 Instructions* Patient Instructions* Paresh Fonseca MD - [...] serious illness Are taking any medications (prescription, anop-xel-rufhppm, vitamins, or herbal products) How will I receive EVUSHELD? EVUSHELD consists of two investigational medicines, tixagevimab and cilgavimab. You will receive 1 dose of EVUSHELD, consisting of 2 separate injections (tixagevimab and cilgavimab). EVUSHELD will be given to you by your healthcare provider as 2 intramuscular injections, given one after the other. Viruses can discovery guide time (mutate) and develop into a slightly [...] caused by certain SARS-CoV-2 variants: Viruses can discovery guide time (mutate) and develop into a slightly [...] treatment or prevention of COVID-19 go to https://www.fda.gov/momrdrwun-cvasphckbmwf-dqf- response/wkh-fftwq-qgnbnnieqr-khp-vxktqs-kpaagbdbk/zjvsythep-ced-fijbngsoeojef for more information. It is your choice [...] not go away. Report side effects to [employer] MedWatch at www.fda.gov/medwatch or call 7-922-WYL-3701 or call [employer] . Additional Information If you have questions, visit the website or call the telephone number provided below. Website Telephone number [email or web address] How can I learn more about COVID-19? Ask your healthcare provider. Visit https://www.cdc.gov/COVID19 Contact your local or state public health department. What is an Emergency Use Authorization? The [place] FDA has made EVUSHELD (tixagevimab co-packaged with cilgavimab) available under an emergency access mechanism called an Emergency Use Authorization EUA. The EUA is supported by a [place] of Health and Human Service (HHS) declaration [...] monohydrate, polysorbate 80, sucrose, water. Distributed by: [employer] [place], [place] Manufactured for: [employer] [place], [place] [employer] 2021. All rightsreserved. documented in this encounterCleveland [facility] Miscellaneous Notes* Telephone Encounter - Paresh Fonseca MD - 12/05/2021 3:05 PM EDT Evusheld (tixagevimab/cilgavimab) Eligibility and Patient Discussion The patient agrees to receive Evusheld (tixagevimab 300 mg and cilgavimab 300 mg) at [facility]. The patient verbalized understanding of repeating a COVID test 72 hours prior to the injections. called up patient in response to her [employer] message today she tested covid negative on a rapid test on Wednesday this week Discussed evushed fact sheet and she agrees to proceed she will retest again today to be scheduled for Friday 12/08 at [facility] Paresh Fonseca MD documented in this encounterCleveland Clinic [facility]10-03-[facility]22 Instructions* Patient Instructions* No Reeder DO - 11/17/2021 4:26 PM EDT -- continue coumadin -- will get vascular ultrasound for vein and artery of your right leg -- will have you see my interventional cardiology partner regarding your peripheral artery disease and if your artery disease is impairing your wound healing for the leg ulcer documented in this encounterCleveland Clinic [facility]10-03-2022 History of Present illness Narrative* No Reeder DO - 11/17/2021 3:53 PM EDT Images from the original note were not included. Heart and Vascular [facility] Department of Cardiovascular Medicine SECTION [...] scan. Leg elevation. No Reeder DO, [facility] Vascular Medicine documented in this encounterCleveland Clinic [facility]08-16-[facility] History of Past illness Narrative* Problem Noted Date Resolved Date Altered tissue perfusion documented as of this encounter (statuses as of 09/30/2021) [facility] History of Past illness Narrative* Problem Noted Date Resolved Date Altered tissue perfusion documented as of this encounter (statuses as of 10/09/2021) [facility] History of Past illness Narrative* Problem Noted Date Resolved Date Altered tissue perfusion documented as of this encounter (statuses as of 11/18/2021) [address]16-2022 History of Past illness Narrative* Problem Noted Date Resolved Date Altered tissue perfusion 16/2 022 documented as of this encounter (statuses as of 12/01/2021) [address]16-2022 History of Past illness Narrative* Problem Noted Date Resolved Date Altered tissue perfusion 16/2 022 documented as of this encounter (statuses as of 12/05/2021) [address]16-2022 History of Past illness Narrative* Problem Noted Date Resolved Date Altered tissue perfusion 16/2 022 documented as of this encounter (statuses as of 12/08/2021) [address]16-2022 History of Past illness Narrative* Problem Noted Date Resolved Date Altered tissue perfusion 09/30/2 022 documented as of this encounter (statuses as of 12/08/2021) [address]16-2022 History of Past illness Narrative* Problem Noted Date Resolved Date Altered tissue perfusion 16/2 022 documented as of this encounter (statuses as of 12/12/2021) [address]16-2022 History of Past illness Narrative* Problem Noted Date Resolved Date Altered tissue perfusion 16/2 022 documented as of this encounter (statuses as of 12/15/2021) [address]16-2022 History of Past illness Narrative* Problem Noted Date Resolved Date Altered tissue perfusion 16/2 022 documented as of this encounter (statuses as of 12/16/2021) [address]16-2022 History of Past illness Narrative* Problem Noted Date Resolved Date Altered tissue perfusion 16/2 022 documented as of this encounter (statuses as of 12/31/2021) [address]16-2022 History of Past illness Narrative* Problem Noted Date Resolved Date Altered tissue perfusion 16/2 022 documented as of this encounter (statuses as of 01/13/2022) [address]16-2022 History of Past illness Narrative* Problem Noted Date Resolved Date Altered tissue perfusion 16/2 022 documented as of this encounter (statuses as of 01/20/2022) [address]16-2022 History of Past illness Narrative* Problem Noted Date Resolved Date Altered tissue perfusion 16/2 022 documented as of this encounter (statuses as of 02/06/2022) [address]16-2022 History of Past illness Narrative* Problem Noted Date Resolved Date Altered tissue perfusion 022 documented as of this encounter (statuses as of 02/20/2022) [address]16-2022 History of Past illness Narrative* Problem Noted Date Resolved Date Altered tissue perfusion 022 documented as of this encounter (statuses as of 02/26/2022) [address]2022 History of Past illness Narrative* Problem Noted Date Resolved Date Altered tissue perfusion documented as of this encounter (statuses as of 02/27/2022) [address]2022 History of Past illness Narrative* Problem Noted Date Resolved Date Altered tissue perfusion documented as of this encounter (statuses as of 03/21/2022) [address]16-2022 History of Past illness Narrative* Problem Noted Date Resolved Date Altered tissue perfusion documented as of this encounter (statuses as of 03/30/2022) [address]16-2022 History of Past illness Narrative* Problem Noted Date Resolved Date Altered tissue perfusion 022 documented as of this encounter (statuses as of 04/06/2022) [address]16-2022 History of Past illness Narrative* Problem Noted Date Resolved Date Altered tissue perfusion documented as of this encounter (statuses as of 05/13/2022) [address]16-2022 History of Past illness Narrative* Problem Noted Date Diagnosed Date Resolved Date Altered tissue perfusion documented as of this encounter (statuses as of 2022) [address]16-2022 History of Past illness Narrative* Problem Noted Date Diagnosed Date Resolved Date Altered tissue perfusion documented as of this encounter (statuses as of 10/29/2022) [address]16-2022 Miscellaneous Notes* Telephone Encounter - Katina [...] to pharmacy. Katina Duque documented in this [facility]05-31-2022 Miscellaneous Notes* [...] and advise. Rosibel Daniel documented in this encounterCleveland Clinic [facility]04-21-2022 Miscellaneous Notes* Telephone Encounter - Van Olivarez APRN.CNP - 06/05/2021 4:46 PM EDT Spoke with pt regarding latest results, scr. at baseline. TAC level 8.6 prev two levels in 5 range.He believes latest level would be 12hr trough. No changes for now, if next level >7, can consider if reduction appropriate. He understands. Van Olivarez APRN.CNP documented in this [facility]* Diagnosis Screening for genitourinary condition Screening for other and unspecified genitourinary condition documented in this encounter [facility] note* Diagnosis Acute deep vein thrombosis (DVT) of proximal end of right lower extremity ([facility])- Primary PAD (peripheral artery disease) ([facility]) Peripheral vascular disease, unspecified Nonhealing ulcer of heel ([facility]) Anticoagulation management encounter Encounter for therapeutic drug monitoring documented in this encounter [facility] note* Diagnosis Encounter for prophylactic measures, unspecified- Primary documented in this encounter [facility] note* Diagnosis Kidney replaced by transplant- Primary documented in this encounter [facility] note* Diagnosis MRSA bacteremia- Primary Bacteremia Diabetic foot ulcer with osteomyelitis ([facility]) Type II or unspecified type diabetes mellitus with other specified manifestations, not stated as uncontrolled ILIANA (acute kidney injury) ([facility]) Acute kidney failure, unspecified documented in this encounter [facility] note* Diagnosis Kidney replaced by transplant- Primary 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 [facility] current use of immunosuppressive drug documented in this encounter [facility] note* Diagnosis Hx of BKA, right (HCC)- Primary PAD (peripheral artery disease) ([facility]) Peripheral vascular disease, unspecified Mixed hyperlipidemia due to type 2 diabetes mellitus ([facility]) Type II or unspecified type diabetes mellitus with renal manifestations, uncontrolled(250.42) Type II or unspecified type diabetes mellitus with renal manifestations, uncontrolled Type 2 diabetes mellitus with diabetic neuropathy, with long-term current use of insulin (HCC) Type 2 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, with long-term current use of insulin ([facility]) Paroxysmal atrial fibrillation ([facility]) Atrial fibrillation documented in this encounter [facility] note* Diagnosis Screening for genitourinary condition Screening for other and unspecified genitourinary condition documented in this encounter [facility] note* Diagnosis Onset Date Resolution Status At high risk for skin breakdown chronic Diabetes chronic Fecal incontinence chronic Limited mobility chronic Poor appetite chronic Pressure ulcer of sacral region, unstageable chronic Candidiasis resolved [facility] Work Phone: Evaluation noteNo [employer] Other Evaluation note* Diagnosis Kidney replaced by transplant- Primary documented in this encounter [facility] note* Diagnosis 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 ([facility]/H[facility]) documented in this encounter [facility] [...] COLONOSCOPY 1995,2001, 2014 Hospitalization History see above [facility] Other Progress note Author Sadia Aguilar [facility] July 20, 2022 1:48pm Note Date/Time July 20, 2022 1:48p m [facility] [address] [place] [address] Wound Center Provider Note Signed Patient: Alex Almonte MR#: [id number] : 1945 Acct:[id number] Age/Sex: 76 / M Copies to: DO Sadia Whyte APRN~ HPI Date of Visit Date of Visit: Date of Service: 07/20/2022 Time of Service: 13:46 Narrative HPI: 12/30/21 Alex is a 76 year old male presenting to [facility] wound care for aninitial visit for eval and treatment of a sacral/coccyx area pressure ulcer. He resides at [facility] There is an HOUSE NURSE present for the visit. Medicalhoney gel will [...] his brief that was cleaned by this newswriter as well as another nursing staff member, [...] from initial visit here Mode of Arrival/ Chief Of Surgery: Facility vehicle Assistive Device Used Today: Wheelchair and Indra Lives with:: Care/Nursing Facility Appetite Description: Within Normal Limits Who helps w/ dressing change?: Nursing Facility Why Do You Need Help?: Can't Reach Ulcer, Limited mobility and Taxing effort to leave home Smoking Status: Former smoker [facility] Medical History (Updated 03/03/22 @ 14:41 [...] 1346 Signed By: <Electronically signed by DAVID Agiular> 07/20/22 1348 [facility] Work Phone: Reason for referral (narrative)* Outpatient Procedure (Routine) - Authorized Specialty Diagnoses / Procedures Referred By Felicia t Referred To [facility] Diagnoses PAD (peripheral artery disease) (HCC) Nonhealing ulcer of heel (HCC) Procedures US LEG ARTERIAL PERIPH UNL VAS LAB DUP-SCAN LXTR ART/ARTL BPGS UNI/LMTD STUDY Reeder, No, DO [address] [place] [address] [facility] [address] Referral ID Status Reason Start Date Expiration Date Visits Requested Visits Authorized [id number] Authorized Auto-Generat ed Referral 11/17/2021 11/17/2022 1 1 * Outpatient Procedure (Routine) - Authorized Specialty Diagnoses / Procedures Referred By Contac t Referred To Contact [facility] [place] Diagnoses Acute deep vein thrombosis (DVT) of proximal end of right lower extremity (HCC) Procedures US LEG VEIN DVT UNL VAS LAB DUP-SCAN XTR VEINS UNILATERAL/[place] [address] [place] [address] [place] [address] Referral ID Status Reason Start Date Expiration Date Visits Requested Visits Authorized [id number] Authorized Auto-Generat ed Referral 11/17/2021 11/17/2022 1 1 * Consult, Test, Treat (Routine) - Authorized Specialty Diagnoses / Procedures Referred By Contac t Referred To Contact Cardiology Diagnoses PAD (peripheral artery disease) (HCC) Nonhealing ulcer of heel (HCC) Procedures CONSULT TO CARDIOLOGY OFFICE/[facility]PATIENT [facility] 60-74 MINUTES Savanah Marcelo MD [address] [place] [address] Referral ID Status Reason Start Date Expiration Date Visits Requested Visits Authorized [id number] Authorized PCP Requested Referral 11/17/2021 11/17/2022 1 1 [facility] Summary Purpose Family History No Family History Records Found Relationship Condition Age at Onset Recorded Date/T kartik father Aneurysm Unknown father Parkinson's disease Unknown Advance Directives No Advanced Directives Records FoundDocuments on File Type Date Recorded 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 Advance Directive(s) Latest Code Status [...] Relationship: M ajority of Adult Siblings (medical office representative) DNR-CCA 09/26/2021 11:56 AM 10/01/2021 2:18 [...] Maker Relationship: Majority of Adult Siblings (medical office representative) Code Status History Code Status Date [...] Reason for Visit Chief Complaint Open Wound ([facility]) Reason for Visit At high [...] and content) DATE CREATED AUTHOR 02/20/2021 [employer] [facility] DATE CREATED AUTHOR AUTHOR'S ORGANIZ ATION 07/25/2022 [facility] DATE CREATED AUTHOR AUTHOR'S ORGANIZ ATION 08/16/2022 [facility] DATE CREATED AUTHOR AUTHOR'S ORGANIZ ATION 01/14/2023 [facility] DATE CREATED AUTHOR AUTHOR'S ORGANIZ ATION 09/05/2023 [facility] DATE CREATED AUTHOR AUTHOR'S ORGANIZ ATION 09/20/2023 [facility] [employer] Source Comments (unrecognize d section and content) In the event this informatio n is protected by the Federal Confidentiality of Alcohol and Drug Abuse Patient Records regulations: The Federal rules restrict any use of the information to criminally investigate or prosecute any alcohol or drug abuse patient.[facility] RehabilitationIn the event this information is protected by the Federal Confidentiality of Alcohol and Drug Abuse Patient Records regulations: The Federal rules restrict any use of the information to criminally investigate or prosecute any alcohol or drug abuse patient.[facility] RehabilitationIn the event this information is protected by the Federal Confidentiality of Alcohol and Drug Abuse Patient Records regulations: The Federal rules restrict any use of the information to criminally investigate or prosecute any alcohol or drug abuse patient.[facility] RehabilitationIn the event this information is protected by the Federal Confidentiality of Alcohol and Drug Abuse Patient Records regulations: The Federal rules restrict any use of the information to criminally investigate or prosecute any alcohol or drug abuse patient.[facility] RehabilitationIn the event this information is protected by the Federal Confidentiality of Alcohol and Drug Abuse Patient Records regulations: The Federal rules restrict any use of the information to criminally investigate or prosecute any alcohol or drug abuse patient.[facility] RehabilitationIn the event this information is protected by the Federal Confidentiality of Alcohol and Drug Abuse Patient Records regulations: The Federal rules restrict any use of the information to criminally investigate or prosecute any alcohol or drug abuse patient.[facility] RehabilitationIn the event this information is protected by the Federal Confidentiality of Alcohol and Drug Abuse Patient Records regulations: The Federal rules restrict any use of the information to criminally investigate or prosecute any alcohol or drug abuse patient.[facility] RehabilitationIn the event this information is protected by the Federal Confidentiality of Alcohol and Drug Abuse Patient Records regulations: The Federal rules restrict any use of the information to criminally investigate or prosecute any alcohol or drug abuse patient.[facility] RehabilitationIn the event this information is protected by the Federal Confidentiality of Alcohol and Drug Abuse Patient Records regulations: The Federal rules restrict any use of the information to criminally investigate or prosecute any alcohol or drug abuse patient.[facility] RehabilitationIn the event this information is protected by the Federal Confidentiality of Alcohol and Drug Abuse Patient Records regulations: The Federal rules restrict any use of the information to criminally investigate or prosecute any alcohol or drug abuse patient.[facility] RehabilitationIn the event this information is protected by the Federal Confidentiality of Alcohol and Drug Abuse Patient Records regulations: The Federal rules restrict any use of the information to criminally investigate or prosecute any alcohol or drug abuse patient.[facility] RehabilitationIn the event this information is protected by the Federal Confidentiality of Alcohol and Drug Abuse Patient Records regulations: The Federal rules restrict any use of the information to criminally investigate or prosecute any alcohol or drug abuse patient.[facility] RehabilitationIn the event this information is protected by the Federal Confidentiality of Alcohol and Drug Abuse Patient Records regulations: The Federal rules restrict any use of the information to criminally investigate or prosecute any alcohol or drug abuse patient.[facility] RehabilitationIn the event this information is protected by the Federal Confidentiality of Alcohol and Drug Abuse Patient Records regulations: The Federal rules restrict any use of the information to criminally investigate or prosecute any alcohol or drug abuse patient.[facility] RehabilitationIn the event this information is protected by the Federal Confidentiality of Alcohol and Drug Abuse Patient Records regulations: The Federal rules restrict any use of the information to criminally investigate or prosecute any alcohol or drug abuse patient.[facility] RehabilitationIn the event this information is protected by the Federal Confidentiality of Alcohol and Drug Abuse Patient Records regulations: The Federal rules restrict any use of the information to criminally investigate or prosecute any alcohol or drug abuse patient.[facility] RehabilitationIn the event this information is protected by the Federal Confidentiality of Alcohol and Drug Abuse Patient Records regulations: The Federal rules restrict any use of the information to criminally investigate or prosecute any alcohol or drug abuse patient.[facility] RehabilitationIn the event this information is protected by the Federal Confidentiality of Alcohol and Drug Abuse Patient Records regulations: The Federal rules restrict any use of the information to criminally investigate or prosecute any alcohol or drug abuse patient.[facility] RehabilitationIn the event this information is protected by the Federal Confidentiality of Alcohol and Drug Abuse Patient Records regulations: The Federal rules restrict any use of the information to criminally investigate or prosecute any alcohol or drug abuse patient.[facility] RehabilitationIn the event this information is protected by the Federal Confidentiality of Alcohol and Drug Abuse Patient Records regulations: The Federal rules restrict any use of the information to criminally investigate or prosecute any alcohol or drug abuse patient.[facility] RehabilitationIn the event this information is protected by the Federal Confidentiality of Alcohol and Drug Abuse Patient Records regulations: The Federal rules restrict any use of the information to criminally investigate or prosecute any alcohol or drug abuse patient.[facility] RehabilitationIn the event this information is protected by the Federal Confidentiality of Alcohol and Drug Abuse Patient Records regulations: The Federal rules restrict any use of the information to criminally investigate or prosecute any alcohol or drug abuse patient.[facility] RehabilitationIn the event this information is protected by the Federal Confidentiality of Alcohol and Drug Abuse Patient Records regulations: The Federal rules restrict any use of the information to criminally investigate or prosecute any alcohol or drug abuse patient.[facility] RehabilitationIn the event this information is protected by the Federal Confidentiality of Alcohol and Drug Abuse Patient Records regulations: The Federal rules restrict any use of the information to criminally investigate or prosecute any alcohol or drug abuse patient.[facility] RehabilitationIn the event this information is protected by the Federal Confidentiality of Alcohol and Drug Abuse Patient Records regulations: The Federal rules restrict any use of the information to criminally investigate or prosecute any alcohol or drug abuse patient.[facility] RehabilitationIn the event this information is protected by the Federal Confidentiality of Alcohol and Drug Abuse Patient Records regulations: The Federal rules restrict any use of the information to criminally investigate or prosecute any alcohol or drug abuse patient.[facility] Reason for Visit (unrecogniz ed section and [...] Care Teams (unrecognized sec tion and content) Advisory Software Engineer Relationship Specialty Start Date End Date LillieDevon, DO [address] [place] [address] PCP - General 05/27/00 Advisory Software Engineer Relationship Specialty Start Date End Date Devon Moreira, DO [address] [place] [address] PCP - General 05/27/00 Advisory Software Engineer Relationship Specialty Start Date End Date Devon Moreira, DO [address] [place] [address] PCP - General 05/27/00 Advisory Software Engineer Relationship Specialty Start Date End Date Devon Moreira, DO [address] [place] [address] PCP - General 05/27/00 Advisory Software Engineer Relationship Specialty Start Date End Date Devon Moreira, DO [address] [place] [address] PCP - General 05/27/00 Advisory Software Engineer Relationship Specialty Start Date End Date Devon Moreira, DO [address] [place] [address] PCP - General 05/27/00 Advisory Software Engineer Relationship Specialty Start Date End Date Devon Moreira, DO [address] [place] [address] PCP - General 05/27/00 Advisory Software Engineer Relationship Specialty Start Date End Date Devon Moreira, DO [address] [place] [address] PCP - General 05/27/00 Advisory Software Engineer Relationship Specialty Start Date End Date Devon Moreira, DO [address] [place] [address] PCP - General 05/27/00 Advisory Software Engineer Relationship Specialty Start Date End Date Devon Moreira, DO [address] [place] [address] PCP - General 05/27/00 Advisory Software Engineer Relationship Specialty Start Date End Date Devon Moreira, DO [address] [place] [address] PCP - General 05/27/00 Advisory Software Engineer Relationship Specialty Start Date End Date Devon Moreira, DO [address] [facility] [place] [address] PCP - General 05/27/00 Advisory Software Engineer Relationship Specialty Start Date End Date Devon Moreira, DO [address] [facility] [place] [address] PCP - General 05/27/00 Advisory Software Engineer Relationship Specialty Start Date End Date Devon Moreira, DO [address] [facility] [place] [address] PCP - General 05/27/00 Advisory Software Engineer Relationship Specialty Start Date End Date Devon Moreira, DO [address] [facility] [place] [address] PCP - General 05/27/00 Advisory Software Engineer Relationship Specialty Start Date End Date Devon Moreira, DO [address] [facility] [place] [address] PCP - General 05/27/00 Advisory Software Engineer Relationship Specialty Start Date End Date Devon Moreira, DO [address] [facility] [place] [address] PCP - General 05/27/00 Advisory Software Engineer Relationship Specialty Start Date End Date Devon Moreira, DO [address] [facility] [place] [address] PCP - General 05/27/00 Advisory Software Engineer Relationship Specialty Start Date End Date Devon Moreira, DO [address] [facility] [place] [address] PCP - General 05/27/00 Team Status: Active Member Role Status Dates Devon Moreira DO Primary Care Provider Active Team Status: Inactive Member Role Status Dates Devon Moreira DO Primary Care Provider Active Sadia Aguilar APRN Attending Provider Active Advisory Software Engineer Relationship Specialty Start Date End Date Devon Moreira, DO [address] [place] [address] PCP - General 05/27/00 Advisory Software Engineer Relationship Specialty Start Date End Date Devon Moreira DO [address] [place] [address] PCP - General 05/27/00 Advisory Software Engineer Relationship Specialty Start Date End Date Ni Cabrera, [address] [facility] [address] [place] [address] PCP - ACO Reach 07/09/22 Devon Moreira MD [address] [place] [id number] PCP - General Internal Medicine 07/14/22 PRN Active and Recently Administ ered Medications (unrecognized section and content) Medication Order 01/10/2022 01/11/2022 01/12/2022 lidocaine (PF) 10 mg/mL (1 %) injection (XYLOCAINE) SUBCUTANEOUS, X (OR/PROCEDURE) PRN, Starting on Wed01/12/22 at 1032, Until Wed01/13/22 at 0303, Intraprocedure 1032 (Given - Provid er: Vani Hdz APRN.AGRICULTURAL PRODUCE WASHER) Goals (unrecognized section and content) Goals may [...] BE BASED ON THE PRIMARY CLINICAL RECORDS. [employer] [facility]. provides no warranty or guarantee of the accuracy or completeness of information in this document.
[2023-09-22 09:28] LABS: Basophils Percent Auto 0.6 % (0.2-2.0); Eosinophils Absolute Auto 0.2 10^3/uL (0.0-0.7); Eosinophils Percent Auto 2.6 % (0.9-7.0); Hematocrit 27.9 % (42.0-54.0); Hemoglobin 8.4 g/dL (14.0-18.0); Immature Granulocytes Abs Auto 0.01 10^3/uL (0.00-0.03); Immature Granulocytes Pct Auto 0.2 % (0.0-0.5); Lymphocytes Absolute Auto 1.8 10^3/uL (1.2-3.8); Lymphocytes Percent Auto 29.3 % (20.5-60.0); Mean Corpuscular HGB Conc 30.1 g/dL (29.9-35.2); Mean Corpuscular Hemoglobin 24.3 pg (25.9-34.0); Mean Corpuscular Volume 80.6 fL (80.0-94.0); Mean Platelet Volume 10.3 fL (9.5-13.5); Monocytes Absolute Auto 0.7 10^3/uL (0.3-0.8); Monocytes Percent Auto 11.5 % (1.7-12.0); Neutrophils Absolute Auto 3.4 10^3/uL (1.4-6.5); Neutrophils Percent Auto 55.8 % (43.0-75.0); Platelet Count 265 10^3/uL (150-450); Red Blood Count 3.46 10^6/uL (4.70-6.10); Red Cell Distribution Width 21.5 % (11.0-15.0); White Blood Count 6.2 10^3/uL (4.0-11.0)
[2023-09-22 09:42] LABS: INR 3.23; Prothrombin Time 30.5 sec (9.0-11.6)
[2023-09-22 09:51] LABS: Alanine Aminotransferase 16 U/L (16-63); Albumin Globulin Ratio 0.9; Albumin Level 2.6 g/dL (3.4-5.0); Alkaline Phosphatase 77 U/L (46-116); Anion Gap 11.9; Aspartate Amino Transferase 17 U/L (15-37); BUN Creatinine Ratio 17.5; Bilirubin Total 0.9 mg/dL (0.2-1.0); Calcium 8.3 mg/dL (8.5-10.1); Carbon Dioxide 26.6 mmol/L (21.0-32.0); Chloride 105 mmol/L (98-107); Estimated GFR (African America 58 (>=60); Estimated GFR (Non-African Ame 48 (>=60); Globulin 2.8 g/dL; Glucose 249 mg/dL (74-106); Potassium 4.5 mmol/L (3.5-5.1); Sodium 139 mmol/L (136-145); Total Protein 5.4 g/dL (6.4-8.2)
[2023-09-25 01:07] LABS: Tacrolimus (FK506), Blood 8.1 ng/mL (2.0-20.0)
== END 2023-09-22 01:55 | disposition home or self-care (01) ==
LOC: LAB 01:54
PROVIDERS: PCP Internal Medicine; Visit Provider Internal Medicine
DX: N18.9 Chronic kidney disease, unspecified (principal)
CPT/HCPCS: 36415; 80053; 80197; 85025; 85610

== ENCOUNTER 2023-09-29 06:24 | Outpatient (RCR) | payer MEDICARE, OTHER, SELFPAY ==
[2023-09-29 09:22] LABS: Basophils Percent Auto 0.7 % (0.2-2.0); Eosinophils Absolute Auto 0.3 10^3/uL (0.0-0.7); Eosinophils Percent Auto 4.9 % (0.9-7.0); Hematocrit 28.9 % (42.0-54.0); Hemoglobin 8.8 g/dL (14.0-18.0); Immature Granulocytes Abs Auto 0.02 10^3/uL (0.00-0.03); Immature Granulocytes Pct Auto 0.3 % (0.0-0.5); Lymphocytes Absolute Auto 1.8 10^3/uL (1.2-3.8); Lymphocytes Percent Auto 30.9 % (20.5-60.0); Mean Corpuscular HGB Conc 30.4 g/dL (29.9-35.2); Mean Corpuscular Hemoglobin 24.5 pg (25.9-34.0); Mean Corpuscular Volume 80.5 fL (80.0-94.0); Mean Platelet Volume 11.5 fL (9.5-13.5); Monocytes Absolute Auto 0.7 10^3/uL (0.3-0.8); Monocytes Percent Auto 11.6 % (1.7-12.0); Neutrophils Absolute Auto 3.1 10^3/uL (1.4-6.5); Neutrophils Percent Auto 51.6 % (43.0-75.0); Platelet Count 233 10^3/uL (150-450); Red Blood Count 3.59 10^6/uL (4.70-6.10); Red Cell Distribution Width 20.7 % (11.0-15.0)
[2023-09-29 09:41] LABS: INR 3.03; Prothrombin Time 28.8 sec (9.0-11.6)
[2023-09-29 10:58] LABS: Alanine Aminotransferase 13 U/L (16-63); Albumin Globulin Ratio 0.9; Albumin Level 2.8 g/dL (3.4-5.0); Alkaline Phosphatase 85 U/L (46-116); Anion Gap 7.1; Aspartate Amino Transferase 14 U/L (15-37); BUN Creatinine Ratio 20.7; Bilirubin Total 0.9 mg/dL (0.2-1.0); Calcium 8.4 mg/dL (8.5-10.1); Carbon Dioxide 29.9 mmol/L (21.0-32.0); Chloride 102 mmol/L (98-107); Estimated GFR (African America >60 (>=60); Estimated GFR (Non-African Ame 51 (>=60); Globulin 3.1 g/dL; Glucose 247 mg/dL (74-106); Sodium 135 mmol/L (136-145); Total Protein 5.9 g/dL (6.4-8.2)
[2023-10-02 00:08] LABS: Tacrolimus (FK506), Blood 10.5 ng/mL (2.0-20.0)
[2023-10-06 10:40] LABS: Basophils Absolute Auto 0.1 10^3/uL (0.0-0.1); Basophils Percent Auto 0.8 % (0.2-2.0); Eosinophils Absolute Auto 0.4 10^3/uL (0.0-0.7); Eosinophils Percent Auto 5.5 % (0.9-7.0); Hematocrit 28.5 % (42.0-54.0); Hemoglobin 8.9 g/dL (14.0-18.0); Immature Granulocytes Abs Auto 0.01 10^3/uL (0.00-0.03); Immature Granulocytes Pct Auto 0.2 % (0.0-0.5); Lymphocytes Percent Auto 31.1 % (20.5-60.0); Mean Corpuscular HGB Conc 31.2 g/dL (29.9-35.2); Mean Corpuscular Hemoglobin 24.9 pg (25.9-34.0); Mean Corpuscular Volume 79.6 fL (80.0-94.0); Mean Platelet Volume 11.1 fL (9.5-13.5); Monocytes Absolute Auto 0.6 10^3/uL (0.3-0.8); Monocytes Percent Auto 9.7 % (1.7-12.0); Neutrophils Absolute Auto 3.3 10^3/uL (1.4-6.5); Neutrophils Percent Auto 52.7 % (43.0-75.0); Platelet Count 230 10^3/uL (150-450); Red Blood Count 3.58 10^6/uL (4.70-6.10); Red Cell Distribution Width 20.8 % (11.0-15.0); White Blood Count 6.3 10^3/uL (4.0-11.0)
[2023-10-06 11:16] LABS: Alanine Aminotransferase 15 U/L (16-63); Albumin Level 2.7 g/dL (3.4-5.0); Alkaline Phosphatase 81 U/L (46-116); Anion Gap 12.8; Aspartate Amino Transferase 14 U/L (15-37); BUN Creatinine Ratio 17.9; Bilirubin Total 0.6 mg/dL (0.2-1.0); Calcium 8.2 mg/dL (8.5-10.1); Carbon Dioxide 26.2 mmol/L (21.0-32.0); Chloride 106 mmol/L (98-107); Estimated GFR (African America 57 (>=60); Estimated GFR (Non-African Ame 47 (>=60); Globulin 2.7 g/dL; Glucose 266 mg/dL (74-106); Sodium 141 mmol/L (136-145); Total Protein 5.4 g/dL (6.4-8.2)
[2023-10-06 11:47] LABS: INR 5.27; Prothrombin Time 47.4 sec (9.0-11.6)
[2023-10-08 18:10] LABS: Tacrolimus (FK506), Blood 9.1 ng/mL (2.0-20.0)
[2023-10-13 09:04] LABS: Basophils Percent Auto 0.5 % (0.2-2.0); Eosinophils Absolute Auto 0.3 10^3/uL (0.0-0.7); Eosinophils Percent Auto 5.5 % (0.9-7.0); Hematocrit 27.3 % (42.0-54.0); Hemoglobin 8.5 g/dL (14.0-18.0); Immature Granulocytes Abs Auto 0.02 10^3/uL (0.00-0.03); Immature Granulocytes Pct Auto 0.3 % (0.0-0.5); Lymphocytes Absolute Auto 2.1 10^3/uL (1.2-3.8); Lymphocytes Percent Auto 36.1 % (20.5-60.0); Mean Corpuscular HGB Conc 31.1 g/dL (29.9-35.2); Mean Corpuscular Hemoglobin 24.9 pg (25.9-34.0); Mean Corpuscular Volume 80.1 fL (80.0-94.0); Mean Platelet Volume 11.2 fL (9.5-13.5); Monocytes Absolute Auto 0.8 10^3/uL (0.3-0.8); Monocytes Percent Auto 13.1 % (1.7-12.0); Neutrophils Absolute Auto 2.6 10^3/uL (1.4-6.5); Neutrophils Percent Auto 44.5 % (43.0-75.0); Platelet Count 252 10^3/uL (150-450); Red Blood Count 3.41 10^6/uL (4.70-6.10); Red Cell Distribution Width 21.1 % (11.0-15.0); White Blood Count 5.8 10^3/uL (4.0-11.0)
[2023-10-13 09:19] LABS: INR 2.59
[2023-10-13 09:23] LABS: Alanine Aminotransferase 15 U/L (16-63); Albumin Level 2.8 g/dL (3.4-5.0); Alkaline Phosphatase 81 U/L (46-116); Aspartate Amino Transferase 17 U/L (15-37); BUN Creatinine Ratio 16.7; Bilirubin Total 0.8 mg/dL (0.2-1.0); Calcium 8.4 mg/dL (8.5-10.1); Chloride 104 mmol/L (98-107); Estimated GFR (African America 55 (>=60); Estimated GFR (Non-African Ame 45 (>=60); Globulin 2.7 g/dL; Glucose 163 mg/dL (74-106); Potassium 3.9 mmol/L (3.5-5.1); Sodium 140 mmol/L (136-145); Total Protein 5.5 g/dL (6.4-8.2)
[2023-10-13 09:28] LABS: Anion Gap 14.9
[2023-10-15 11:19] LABS: Phosphorus 3.6 mg/dL (2.6-4.7)
[2023-10-15 17:10] LABS: Tacrolimus (FK506), Blood 7.5 ng/mL (2.0-20.0)
== END 2023-10-16 23:59 | disposition home or self-care (01) ==
LOC: LAB 06:24
PROVIDERS: PCP Internal Medicine; Visit Provider Internal Medicine
DX: N28.9 Disorder of kidney and ureter, unspecified (principal); Z51.81 Encounter for therapeutic drug level monitoring
CPT/HCPCS: 36415; 80053; 80197; 84100; 85025; 85610

== ENCOUNTER 2023-10-18 00:59 | Outpatient (RCR) | payer MEDICARE, OTHER, SELFPAY | END 2023-11-15 23:53 | disposition home or self-care (01) | LOC: MM 00:59 | PROVIDERS: PCP Internal Medicine; Visit Provider Internal Medicine | DX: Z51.81 Encounter for therapeutic drug level monitoring (principal); Z79.01 Long term (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 of anticoagulants ==

== ENCOUNTER 2023-10-20 06:15 | Outpatient (RCR) | payer MEDICARE, OTHER, SELFPAY ==
[2023-10-20 09:42] LABS: Basophils Percent Auto 0.7 % (0.2-2.0); Eosinophils Absolute Auto 0.3 10^3/uL (0.0-0.7); Eosinophils Percent Auto 5.1 % (0.9-7.0); Hemoglobin 8.6 g/dL (14.0-18.0); Immature Granulocytes Abs Auto 0.01 10^3/uL (0.00-0.03); Immature Granulocytes Pct Auto 0.2 % (0.0-0.5); Lymphocytes Absolute Auto 2.1 10^3/uL (1.2-3.8); Mean Corpuscular HGB Conc 30.7 g/dL (29.9-35.2); Mean Corpuscular Hemoglobin 24.6 pg (25.9-34.0); Mean Platelet Volume 10.9 fL (9.5-13.5); Monocytes Absolute Auto 0.7 10^3/uL (0.3-0.8); Monocytes Percent Auto 11.5 % (1.7-12.0); Neutrophils Absolute Auto 2.8 10^3/uL (1.4-6.5); Neutrophils Percent Auto 47.5 % (43.0-75.0); Platelet Count 229 10^3/uL (150-450); Red Cell Distribution Width 21.4 % (11.0-15.0); White Blood Count 5.9 10^3/uL (4.0-11.0)
[2023-10-20 11:00] LABS: INR 5.47
[2023-10-20 11:37] LABS: Alanine Aminotransferase 13 U/L (16-63); Albumin Globulin Ratio 0.9; Albumin Level 2.7 g/dL (3.4-5.0); Alkaline Phosphatase 85 U/L (46-116); Anion Gap 10.7; Aspartate Amino Transferase 16 U/L (15-37); BUN Creatinine Ratio 18.2; Bilirubin Total 0.8 mg/dL (0.2-1.0); Calcium 8.2 mg/dL (8.5-10.1); Carbon Dioxide 28.2 mmol/L (21.0-32.0); Chloride 101 mmol/L (98-107); Estimated GFR (African America 58 (>=60); Estimated GFR (Non-African Ame 48 (>=60); Globulin 2.9 g/dL; Glucose 199 mg/dL (74-106); Potassium 3.9 mmol/L (3.5-5.1); Sodium 136 mmol/L (136-145); Total Protein 5.6 g/dL (6.4-8.2)
[2023-10-22 21:08] LABS: Tacrolimus (FK506), Blood 7.2 ng/mL (2.0-20.0)
[2023-10-27 10:38] LABS: Basophils Percent Auto 0.5 % (0.2-2.0); Eosinophils Absolute Auto 0.3 10^3/uL (0.0-0.7); Eosinophils Percent Auto 4.3 % (0.9-7.0); Hematocrit 28.8 % (42.0-54.0); Hemoglobin 8.9 g/dL (14.0-18.0); INR 3.22; Immature Granulocytes Abs Auto 0.01 10^3/uL (0.00-0.03); Immature Granulocytes Pct Auto 0.2 % (0.0-0.5); Lymphocytes Absolute Auto 1.7 10^3/uL (1.2-3.8); Lymphocytes Percent Auto 27.6 % (20.5-60.0); Mean Corpuscular HGB Conc 30.9 g/dL (29.9-35.2); Mean Corpuscular Hemoglobin 25.1 pg (25.9-34.0); Mean Corpuscular Volume 81.4 fL (80.0-94.0); Mean Platelet Volume 10.1 fL (9.5-13.5); Monocytes Absolute Auto 0.5 10^3/uL (0.3-0.8); Monocytes Percent Auto 8.8 % (1.7-12.0); Neutrophils Absolute Auto 3.6 10^3/uL (1.4-6.5); Neutrophils Percent Auto 58.6 % (43.0-75.0); Platelet Count 228 10^3/uL (150-450); Prothrombin Time 30.4 sec (9.0-11.6); Red Blood Count 3.54 10^6/uL (4.70-6.10); Red Cell Distribution Width 20.8 % (11.0-15.0); White Blood Count 6.1 10^3/uL (4.0-11.0)
[2023-10-27 10:45] LABS: Alanine Aminotransferase 11 U/L (16-63); Albumin Globulin Ratio 0.9; Albumin Level 2.7 g/dL (3.4-5.0); Alkaline Phosphatase 85 U/L (46-116); Anion Gap 10.8; Aspartate Amino Transferase 12 U/L (15-37); BUN Creatinine Ratio 17.9; Bilirubin Total 0.9 mg/dL (0.2-1.0); Calcium 8.5 mg/dL (8.5-10.1); Carbon Dioxide 28.2 mmol/L (21.0-32.0); Chloride 103 mmol/L (98-107); Estimated GFR (African America 59 (>=60); Estimated GFR (Non-African Ame 49 (>=60); Globulin 2.9 g/dL; Glucose 247 mg/dL (74-106); Sodium 138 mmol/L (136-145); Total Protein 5.6 g/dL (6.4-8.2)
[2023-10-27 12:22] LABS: Percent Iron Saturation 10.3 %
[2023-10-30 12:13] LABS: Tacrolimus (FK506), Blood 9.3 ng/mL (2.0-20.0)
[2023-11-03 09:19] LABS: Basophils Percent Auto 0.5 % (0.2-2.0); Eosinophils Absolute Auto 0.2 10^3/uL (0.0-0.7); Eosinophils Percent Auto 3.8 % (0.9-7.0); Hematocrit 28.9 % (42.0-54.0); Hemoglobin 8.8 g/dL (14.0-18.0); Immature Granulocytes Abs Auto 0.01 10^3/uL (0.00-0.03); Immature Granulocytes Pct Auto 0.2 % (0.0-0.5); Lymphocytes Absolute Auto 1.9 10^3/uL (1.2-3.8); Lymphocytes Percent Auto 31.6 % (20.5-60.0); Mean Corpuscular HGB Conc 30.4 g/dL (29.9-35.2); Mean Corpuscular Hemoglobin 24.6 pg (25.9-34.0); Mean Corpuscular Volume 80.7 fL (80.0-94.0); Mean Platelet Volume 10.2 fL (9.5-13.5); Monocytes Absolute Auto 0.5 10^3/uL (0.3-0.8); Monocytes Percent Auto 8.8 % (1.7-12.0); Neutrophils Absolute Auto 3.3 10^3/uL (1.4-6.5); Neutrophils Percent Auto 55.1 % (43.0-75.0); Platelet Count 234 10^3/uL (150-450); Red Blood Count 3.58 10^6/uL (4.70-6.10); Red Cell Distribution Width 20.2 % (11.0-15.0)
[2023-11-03 09:31] LABS: INR 3.27; Prothrombin Time 30.8 sec (9.0-11.6)
[2023-11-03 09:37] LABS: Alanine Aminotransferase 11 U/L (16-63); Albumin Level 2.9 g/dL (3.4-5.0); Alkaline Phosphatase 83 U/L (46-116); Anion Gap 9.6; Aspartate Amino Transferase 12 U/L (15-37); BUN Creatinine Ratio 21.5; Bilirubin Total 0.8 mg/dL (0.2-1.0); Calcium 8.2 mg/dL (8.5-10.1); Carbon Dioxide 29.5 mmol/L (21.0-32.0); Chloride 104 mmol/L (98-107); Estimated GFR (African America 55 (>=60); Estimated GFR (Non-African Ame 45 (>=60); Globulin 2.8 g/dL; Glucose 349 mg/dL (74-106); Potassium 4.1 mmol/L (3.5-5.1); Sodium 139 mmol/L (136-145); Total Protein 5.7 g/dL (6.4-8.2)
[2023-11-07 09:07] LABS: Tacrolimus (FK506), Blood 8.1 ng/mL (2.0-20.0)
== END 2023-11-15 12:43 | disposition home or self-care (01) ==
LOC: LAB 06:15
PROVIDERS: PCP Internal Medicine; Visit Provider Internal Medicine
DX: N28.9 Disorder of kidney and ureter, unspecified (principal); D64.9 Anemia, unspecified
CPT/HCPCS: 36415; 80053; 80197; 82728; 83540; 83550; 85025; 85610

== ENCOUNTER 2023-10-22 05:49 | Outpatient (RCR) | payer MEDICARE, OTHER, SELFPAY ==
[2023-10-22 10:35] LABS: INR 3.52; Prothrombin Time 32.9 sec (9.0-11.6)
[2023-11-10 10:25] LABS: Basophils Percent Auto 0.5 % (0.2-2.0); Eosinophils Absolute Auto 0.2 10^3/uL (0.0-0.7); Eosinophils Percent Auto 4.1 % (0.9-7.0); Hematocrit 27.6 % (42.0-54.0); Hemoglobin 8.5 g/dL (14.0-18.0); Immature Granulocytes Abs Auto 0.02 10^3/uL (0.00-0.03); Immature Granulocytes Pct Auto 0.3 % (0.0-0.5); Lymphocytes Absolute Auto 1.8 10^3/uL (1.2-3.8); Lymphocytes Percent Auto 31.1 % (20.5-60.0); Mean Corpuscular HGB Conc 30.8 g/dL (29.9-35.2); Mean Corpuscular Hemoglobin 24.7 pg (25.9-34.0); Mean Corpuscular Volume 80.2 fL (80.0-94.0); Mean Platelet Volume 10.6 fL (9.5-13.5); Monocytes Absolute Auto 0.7 10^3/uL (0.3-0.8); Neutrophils Absolute Auto 3.1 10^3/uL (1.4-6.5); Platelet Count 227 10^3/uL (150-450); Red Blood Count 3.44 10^6/uL (4.70-6.10); Red Cell Distribution Width 19.7 % (11.0-15.0); White Blood Count 5.9 10^3/uL (4.0-11.0)
[2023-11-10 10:44] LABS: Alanine Aminotransferase 14 U/L (16-63); Albumin Globulin Ratio 0.9; Albumin Level 2.7 g/dL (3.4-5.0); Alkaline Phosphatase 81 U/L (46-116); Anion Gap 7.6; Aspartate Amino Transferase 17 U/L (15-37); BUN Creatinine Ratio 20.5; Bilirubin Total 0.6 mg/dL (0.2-1.0); Calcium 8.2 mg/dL (8.5-10.1); Carbon Dioxide 29.2 mmol/L (21.0-32.0); Chloride 103 mmol/L (98-107); Estimated GFR (African America 56 (>=60); Estimated GFR (Non-African Ame 47 (>=60); Globulin 2.9 g/dL; Glucose 280 mg/dL (74-106); Magnesium 1.7 mg/dL (1.8-2.4); Phosphorus 3.8 mg/dL (2.6-4.7); Potassium 3.8 mmol/L (3.5-5.1); Sodium 136 mmol/L (136-145); Total Protein 5.6 g/dL (6.4-8.2)
[2023-11-10 10:50] LABS: Prothrombin Time 41.9 sec (9.0-11.6)
[2023-11-13 00:10] LABS: Tacrolimus (FK506), Blood 10.3 ng/mL (2.0-20.0)
== END 2023-11-15 12:43 | disposition home or self-care (01) ==
LOC: LAB 05:49
PROVIDERS: PCP Internal Medicine; Visit Provider Internal Medicine
DX: Z79.01 Long term (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 of anticoagulants (principal); N28.9 Disorder of kidney and ureter, unspecified; Z51.81 Encounter for therapeutic drug level monitoring
CPT/HCPCS: 36415; 80053; 80197; 83735; 84100; 85025; 85610

== ENCOUNTER 2023-11-16 01:35 | Outpatient (RCR) | payer MEDICARE, OTHER, SELFPAY | END 2023-12-16 23:31 | disposition home or self-care (01) | LOC: MM 01:35 | PROVIDERS: PCP Internal Medicine; Visit Provider Internal Medicine | DX: Z51.81 Encounter for therapeutic drug level monitoring (principal); Z79.01 Long term (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 of anticoagulants; I82.409 Acute embolism and thrombosis of unspecified deep veins of unspecified lower extremity ==

== ENCOUNTER 2023-11-17 02:41 | Outpatient (RCR) | payer MEDICARE, OTHER, SELFPAY ==
[2023-11-17 10:25] LABS: Basophils Percent Auto 0.6 % (0.2-2.0); Eosinophils Absolute Auto 0.2 10^3/uL (0.0-0.7); Eosinophils Percent Auto 3.1 % (0.9-7.0); Hematocrit 27.8 % (42.0-54.0); Hemoglobin 8.5 g/dL (14.0-18.0); Immature Granulocytes Abs Auto 0.02 10^3/uL (0.00-0.03); Immature Granulocytes Pct Auto 0.3 % (0.0-0.5); Mean Corpuscular HGB Conc 30.6 g/dL (29.9-35.2); Mean Corpuscular Hemoglobin 24.6 pg (25.9-34.0); Mean Corpuscular Volume 80.3 fL (80.0-94.0); Mean Platelet Volume 10.8 fL (9.5-13.5); Monocytes Absolute Auto 0.6 10^3/uL (0.3-0.8); Monocytes Percent Auto 9.1 % (1.7-12.0); Neutrophils Absolute Auto 3.7 10^3/uL (1.4-6.5); Neutrophils Percent Auto 56.9 % (43.0-75.0); Platelet Count 219 10^3/uL (150-450); Red Blood Count 3.46 10^6/uL (4.70-6.10); Red Cell Distribution Width 19.5 % (11.0-15.0); White Blood Count 6.5 10^3/uL (4.0-11.0)
[2023-11-17 10:36] LABS: INR 1.37; Prothrombin Time 14.1 sec (9.0-11.6)
[2023-11-17 12:57] LABS: Alanine Aminotransferase 16 U/L (16-63); Albumin Level 2.8 g/dL (3.4-5.0); Alkaline Phosphatase 86 U/L (46-116); Anion Gap 13.1; Aspartate Amino Transferase 17 U/L (15-37); Bilirubin Total 0.7 mg/dL (0.2-1.0); Calcium 8.4 mg/dL (8.5-10.1); Carbon Dioxide 24.9 mmol/L (21.0-32.0); Chloride 102 mmol/L (98-107); Estimated GFR (African America 58 (>=60 mL/min/1.73m^2); Estimated GFR (Non-African Ame 48 (>=60 mL/min/1.73m^2); Globulin 2.9 g/dL; Glucose 284 mg/dL (74-106); Sodium 136 mmol/L (136-145); Total Protein 5.7 g/dL (6.4-8.2)
[2023-11-19 22:06] LABS: Tacrolimus (FK506), Blood 8.3 ng/mL (2.0-20.0)
== END 2024-02-15 23:59 | disposition home or self-care (01) ==
LOC: LAB 02:41
PROVIDERS: PCP Internal Medicine; Visit Provider Internal Medicine
DX: N28.9 Disorder of kidney and ureter, unspecified (principal); Z51.81 Encounter for therapeutic drug level monitoring
CPT/HCPCS: 36415; 80053; 80197; 85025; 85610

== ENCOUNTER 2023-11-26 07:32 | Outpatient (RCR) | payer MEDICARE, OTHER, SELFPAY ==
[2023-11-26 10:08] VITALS: BP 117/58; PULSE 94; TEMP 35.9; O2SAT 97
[2023-11-26] MEDS: IRON SUCROSE COMPLEX 300 MG in 0.9 % SODIUM CHLORIDE 250 ML 176.667 MG IV (10:14)
== END 2023-12-16 23:59 | disposition home or self-care (01) ==
LOC: INF 07:32
PROVIDERS: PCP Internal Medicine; Visit Provider Internal Medicine
DX: D64.9 Anemia, unspecified (principal)
CPT/HCPCS: 96365; 96366; J1756

== ENCOUNTER 2023-12-17 11:21 | Outpatient (RCR) | payer MEDICARE, OTHER, SELFPAY | END 2024-01-15 23:59 | disposition home or self-care (01) | LOC: MM 11:21 | PROVIDERS: PCP Internal Medicine; Visit Provider Internal Medicine | DX: Z51.81 Encounter for therapeutic drug level monitoring (principal); Z79.01 Long term (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 of anticoagulants; I82.409 Acute embolism and thrombosis of unspecified deep veins of unspecified lower extremity ==

== ENCOUNTER 2024-01-17 03:37 | Outpatient (RCR) | payer MEDICARE, OTHER, SELFPAY | END 2024-02-15 09:36 | disposition home or self-care (01) | LOC: MM 03:37 | PROVIDERS: PCP Internal Medicine; Visit Provider Internal Medicine | DX: Z51.81 Encounter for therapeutic drug level monitoring (principal); Z79.01 Long term (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 of anticoagulants ==

== ENCOUNTER 2024-02-17 00:35 | Outpatient (RCR) | payer MEDICARE, OTHER, SELFPAY | END 2024-03-17 14:53 | disposition home or self-care (01) | LOC: MM 00:35 | PROVIDERS: PCP Internal Medicine; Visit Provider Internal Medicine | DX: Z51.81 Encounter for therapeutic drug level monitoring (principal); Z79.01 Long term (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 of anticoagulants; I82.409 Acute embolism and thrombosis of unspecified deep veins of unspecified lower extremity ==

== ENCOUNTER 2024-03-20 00:46 | Outpatient (RCR) | payer MEDICARE, OTHER, SELFPAY | END 2024-04-14 11:10 | disposition home or self-care (01) | LOC: MM 00:46 | PROVIDERS: PCP Internal Medicine; Visit Provider Internal Medicine | DX: Z51.81 Encounter for therapeutic drug level monitoring (principal); Z79.01 Long term (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 of anticoagulants ==

== ENCOUNTER 2024-04-15 09:47 | Outpatient (RCR) | payer MEDICARE, OTHER, SELFPAY | END 2024-05-12 10:20 | disposition home or self-care (01) | LOC: MM 09:47 | PROVIDERS: PCP Internal Medicine; Visit Provider Internal Medicine | DX: Z51.81 Encounter for therapeutic drug level monitoring (principal); Z79.01 Long term (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 of anticoagulants; I82.409 Acute embolism and thrombosis of unspecified deep veins of unspecified lower extremity ==

== ENCOUNTER 2024-04-26 10:46 | Outpatient (REF) | payer MEDICARE, OTHER, SELFPAY ==
--- OUTSIDE RECORDS SUMMARY | 2024-04-26 11:04 | XMS_ITS | CCD ---
Author Organization [facility] Care Team Providers Care Paraprofessional Aide Teacher Name Role Phone PROVIDER, UNKNOWN Attending Unavailable [...] Unavailable Sadia Aguilar Admitting Unavailable Devon Moreira [facility] Care Unavailable PetNi moreno DO Unavailable [phone] Devon Moreira MD Primary Care Provider Devon Moreira DO Primary Care Provider Ni Cabrera DO Unavailable [phone] NI CABRERA Attending Unavailable NI CABRERA Attending Unavailable DEVON MOREIRA Referring Unavailable NI CABRERA Attending Unavailable NI CABRERA Attending Unavailable MILAGRO QUEEN Referring Unavailable MILAGRO QUEEN Referring Unavailable CAITY IBRAHIM Attending Unavailable MILAGRO QUEEN Attending Unavailable Allergies Allergy Classification Reported Allergen(s) Allergy Type Date of Onset Reaction(s) Facility (20 sources) Pyridostigmine; Translations: [PYRIDOSTIGMINE BROMIDE] Drug Allergy 2 GI Upset [facility] Work Phone: (5 sources) Pyridostigmine Drug Allergy 2 Nausea Only [facility] Medications Current Medications Medication Drug Class(es) Dates Sig (Normalized) Sig (Original) acetaminophen 500 mg oral tablet (20 sources) take 1 tablet by mouth every eight hours as needed acetaminophen (TYLENOL EXTRA STRENGTH) 500 mg tablet Take 500 mg by mouth every 8 hours as needed. Active take 2 tablets by mo uth every six hours as needed for pain acetaminophen (Tylenol) 500 MG tablet Ta ke 1,000 mg by mouth every 6 (six) hours if needed for mild pain. Active take 1 tablet by mouth every six hours Acetaminophen 500 MG 1 tablet as needed Orally every 6 hrs Active Comment on above: Take 500 mg [...] hours as needed for wheezing/shortness of breath. 12/11/2021 Active ipratropium-albu terol (Duo-Neb) 0.5-2.5 mg/3 mL nebulizer solution Take by nebulization every 6 (six) hours if needed Active Comment on above: Inhale 3 mL as instr ucted every 6 hours as needed for wheezing/shortness of breath. aspirin 81 mg delayed release oral tablet (20 sources) Platelet Aggregation Inhibitor, Nonsteroidal Anti-inflammatory Drug Start: 2 End: 2 take 1 tablet by mouth once daily aspirin, enteric coated (ASPIRIN, ENTERIC COATED) 81 mg EC tablet Take 1 tablet by mouth once daily. 10/01/2021 Active take 1 tablet by debi th every twenty-four hours Aspirin 81 MG 1 tablet Orally Once a day Active Comment on above: Take 1 tablet by debi th once daily. atorvastatin 40 mg oral tablet (20 sources) HMG-CoA Reductase Inhibitor Start: 2 take 1 tablet by mouth in the morning atorvastatin (Lipitor) 40 MG tablet Take 40 mg by mouth in the morning. 07/05/2022 Active Start: 10-01-2021 End: 10-31-2021 take 1 tablet by mouth once daily at bedtime atorvastatin (LIPITOR) 40 mg tablet 1 tablet by ORAL/FEEDING TUBE route daily at bedtime. 30 tablet 0 10/01/2021 Active Start: 10-01-2021 take 1 tablet by debi th once daily at bedtime atorvastatin (LIPITOR) 40 mg tablet 1 tablet by ORAL/FEEDING TUBE route daily at bedtime. 30 tablet 10/01/2021 Active Comment on above: 1 tablet by ORAL/FEE DING TUBE route daily at bedtime. Take 40 mg by mouth once daily. 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 12/11/2021 Active take 1 tablet by debi th every twelve hours senna-docusate (Yasmin-Colace) 8.6-50 MG t ablet Take 1 tablet by mouth every 12 (twelve) hours Active Comment on above: Take 1 tablet by debi th twice daily. famotidine 20 mg oral tablet (7 sources) Histamine-2 Receptor Antagonist Start: 3 take 1 tablet by mouth in the morning famotidine (Pepcid) 20 MG tablet Take 20 mg by mouth in the morning. 06/24/2022 Active Food Supplement, Lactose-Free (ENSURE MAX PROTEIN) liqd (20 sources) Start: 2 take 237 mL by mouth once daily at breakfast Food Supplement, Lactose-Free (ENSURE MAX PROTEIN) liqd Take 237 mL by mouth daily with breakfast. 7110 mL 12/11/2021 Active Start: 12-11-2021 take 237 mL by mouth once daily at breakfast Food Supplement, Lactose-Free (ENSURE MAX PROTEIN) liqd Take 237 mL by mouth daily with breakfast. 7110 mL 0 12/11/2021 Active Comment on above: Take 237 mL by mouth daily with breakfast. FreeStyle Shaan 14 Day Senso r - (10 sources) Start: 04-06-2022 Start: 04-06-2022 Start: 04-06-2022 [...] days Active glucagon (rdna) 1 mg injection (5 sources) Antihypoglycemic Agent glucagon 1 MG injection Inject 1 mg into the shoulder, thigh, or buttocks 1 (one) time if needed for low blood sugar Active glucagon 1 MG in jection 1 mg 0 Active sodium hypochlorite 2.5 mg/ml topical solution (11 sources) sodium hypochlor ite, Dakin's Half-Strength, (DAKIN'S SOLUTION) external solution Apply 0.5 mL to affected area every evening. Active Comment on above: Apply 0.5 mL to affe cted area every evening. insulin aspart, human (1 source) Insulin Analog Start: 01-24-20 inject 1 dose by subcutaneous injection three times daily at mealtime Insulin Aspart U-100 Active 100 sliding scale dose SUBCUT THREE TIMES DAILY WITH MEALS January 23, 2019 1:00am 3 ml insulin glargine 100 unt/ml pen injector (20 sources) Insulin Analog Start: 03-30-19 Lantus SoloStar 100 UNIT/ML pen Indications: 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) Inject 17 Units under the skin in the morning. 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 15 mL 3 06/20/2023 12/24/2023 Discontinued (Dose adjustment) Start: 03-18-2023 Lantus SoloSta r 100 UNIT/ML pen Indications: Type 1 diabetes [...] 17 Units subcutaneously once daily. 3 mL 12/11/2021 Active Start: 12-11-2021 insulin glargi ne [...] injectable solution (20 sources) Insulin Analog Start: 03-30-2024 insulin lispro (HumaLOG) 100 unit/ml injection Indications: Type 1 diabetes mellitus with nephropathy ([facility]/HCC) 3 units breakfast, 5 units lunch, 10 units dinner, 2 unit afternoon snack plus correction 1:50 > 150 mg/dl (max daily 30 units) Bedtime correction 200-300 1 unit, > 300 2 units 10 mL 3 03/30/2024 Active Start: 03-30-2024 insulin lispro (HumaLOG) 100 unit/ml injection Indications: 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) 3 units breakfast, 5 units lunch, 10 units dinner, 2 unit afternoon snack plus correction 1:50 > 150 mg/dl (max daily 30 units) Bedtime correction 200-300 1 unit, > 300 2 units 10 mL 3 03/30/2024 Active Start: 04-09-2001 End: 03-30-2024 insulin lispro (HumaLOG) 100 unit/ml injection Indications: 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) 4 units breakfast, 6 units lunch, 8 units dinner, 2 unit afternoon snack plus correction 1:50 > 150 mg/dl (max daily 30 units) Bedtime correction 200-300 1 unit, > 300 2 units 10 mL 3 12/24/2023 03/30/2024 Discontinued (Dose adjustment) HumaLOG 100 UNIT /ML as directed Injection [...] 10 units and notify provider K Phos [place]-Sod Phos Di & [place] [phone] MG (6 sources) take 155-852 tablets by mouth twice daily K Phos [place]-Sod Phos Di & [place] [phone] MG 1 tablet Orally twice daily Active take 155-852 tablets by mouth four times daily take 155-852 tablets by mouth four times daily K Phos [place]-Sod Phos Di & [place] 155-852-130 MG 1 tablet Orally Four times [...] (20 sources) Prostaglandin Analog Start: 02-25-2022 latanoprost (XALATAN) 0.005 % ophthalmic solution Use in both eyes daily at bedtime. 02/25/2022 Active Start: 01-23-2019 take 1 drop(s) [...] bedtime. Multivital (4 sources) Multivital Not-T aking nut.tx.gluc intol,lf,soy-fiber (BOOST GLUCOSE CONTROL) 0.07-0.8 gram-kcal/mL liqd (20 sources) Start: 12-11-2021 take 237 mL by mouth once daily at dinner nut.tx.gluc intol,lf,soy-fiber (BOOST GLUCOSE CONTROL) 0.07-0.8 gram-kcal/mL liqd Take 237 mL by mouth daily with dinner. 7110 mL 12/11/2021 Active Start: 12-11-2021 take 237 mL by mouth once daily at dinner nut.tx.gluc intol,lf,soy-fiber (BOOST GLUCOSE CONTROL) 0.07-0.8 gram-kcal/mL liqd Take 237 mL by mouth daily with dinner. 7110 mL 0 12/11/2021 Active Comment on above: Take 237 mL by mouth daily with dinner. OTC NUTRITIONAL SUPPLEMENT (20 sources) Start: 12-11-2021 take 237 mL by mouth once daily at lunch OTC NUTRITIONAL SUPPLEMENT Take 237 mL by mouth daily with lunch. Magic Cup Lamoure with lunch 7110 mL 12/11/2021 Active Start: 12-11-2021 take 237 mL by mouth once daily at lunch OTC NUTRITIONAL SUPPLEMENT Take 237 mL by mouth daily with lunch. Magic Cup Lamoure with lunch 7110 mL 0 12/11/2021 Active Comment on above: Take 237 mL by mouth daily with lunch. Magic Cup [place]ou[place] with lunch oxyCODONE hydrochloride 5 mg oral capsule (20 sources) Opioid Agonist Start: 12-30-2021 take 5 [...] TUBE route every 3 hours as needed. polyethylene glycol 3350 11676 mg powder for oral solution (20 sources) Osmotic Laxative Start: 12-12-2021 polyethylene glycol 3350 (MIRALAX, GLYCOLAX) 17 gram packet Take 1 Packet by mouth once daily. Dissolve dose in 4 - 8 ounces of liquid and take as directed. 12/12/2021 Active MiraLax 17 GM/SC OOP 1 scoop mixed with 8 ounces of fluid Orally Once a day Active MiraLax - as dir ected Orally Not-Taking Comment on above: Take 1 Packet by debi th once daily. Dissolve dose in 4 - 8 ounces of liquid and take as directed. Polyethylene Glycols (9 sources) Polyethylene Gly col [...] by mouth o nce daily as needed. polysaccharide iron complex 150 mg oral capsule (2 sources) take 1 capsule by mouth every other day iron polysaccharides (Nu-Iron,Niferex) 150 MG capsule Take 150 mg by mouth every other day Active potassium chloride 10 meq extended release oral tablet (1 source) Start: 2 Potassium Chloride (Klor-Con 10) 10 mEq Tablet Extended Release Active 10 MEQ PO Daily January 20, 2022 1:00am potassium phosphate 155 mg / sodium phosphate, dibasic 852 mg / sodium phosphate, monobasic 130 mg oral tablet (20 sources) Start: 2 take 1 tablet by mouth twice daily phosphorus (K PHOS NEUTRAL) 250 mg tablet 1 tablet by ORAL/FEEDING TUBE route twice daily. 12/11/2021 Active Start: 12-11-2021 take 1 tablet by debi th twice daily phosphorus (K PHOS NEUTRAL) 250 mg tablet 1 tablet by ORAL/FEEDING TUBE route twice daily. 0 12/11/2021 Active Comment on above: 1 tablet by ORAL/FEE DING TUBE route twice daily. predniSONE 5 mg oral tablet (20 sources) Start: 9 End: 2 take 1 tablet by mouth in the morning predniSONE (Deltasone) 5 MG tablet Take 5 mg by mouth in the morning. 03/06/2023 Active Comment on above: TAKE 1 TABLET BY DEBI TH EVERY DAY Probiotic (4 sources) Probiotic Not-Ta jn sulfamethoxazole 400 mg / trimethoprim 80 mg oral tablet (20 sources) Dihydrofolate Reductase Inhibitor Antibacterial, Sulfonamide Antimicrobial Start: 03-01-2023 sulfamethoxazole-trimethopri m (Bactrim) 400-80 MG tablet 3 (three) times a week 03/01/2023 Active Start: 01-23-2019 take 1 tablet [...] 90 capsule 11 09/23/2022 10/16/2022 Discontinued Start: 06-21-2022 End: 11-18-2023 take 1 capsule by mouth twice daily tacrolimus IR (PROGRAF) 1 mg capsule Indications: Kidney replaced by transplant TAKE 1 CAPSULE BY MOUTH TWICE DAILY. TAKE 12 HOURS APART 60 capsule 11 11/18/2023 Active Start: 12-12-2021 End: 03-30-2022 take 2 capsules [...] 1 capsule pm 0 06/21/2022 Active Start: 01-23-2019 End: 09-30-2021 tacrolimus IR (PROGRAF) 1 mg capsule TAKE 1 CAPSULE BY MOUTH TWICE A DAY*Z94.0* 60 capsule 11 09/30/2021 Active Comment on above: TAKE 1 CAPSULE BY [...] in PM (1 mg) 12 hrs apart tixagevimab 300 mg intramuscular injection (EVUSHELD) (4 sources) Start: 2 End: 2 tixagevimab 300 mg intramuscular injection (EVUSHELD) torsemide 20 mg oral tablet (20 sources) Loop Diuretic Start: 2 take 1 tablet by mouth every other day torsemide (DEMADEX) 20 mg tablet Take 1 tablet by mouth every other day. 12/13/2021 Active Start: 12-13-2021 take 1 tablet [...] 2 (two) times a day as needed 03/25/2022 Active Start: 01-26-2019 End: 12-30-2021 Tramadol [...] Start: 07-03-2022 warfarin (Coumadin) 4 MG tablet 2mg every day except 4 mg on and urr 07/03/2022 Active Start: 07-03-2022 warfarin (Coum radames) 4 MG tablet 4mg T, TH, Sat, Sun 6mg M, W, Fr 0 07/03/2022 Active Start: 02-05-2022 warfarin (COUM RADAMES) 2 mg tablet Take 3 mg Wednesday, Wednesday, Wednesday and Wednesday. Take 2 mg Wednesday, and Wednesday. 02/05/2022 Active Start: 12-30-2021 take 1 tablet [...] Drug Class(es) Dates Sig (Normalized) Sig (Original) apixaban 5 mg oral tablet (1 source) Factor Xa Inhibitor take 1 tablet by mouth twice daily apixaban (ELIQUIS) 5 mg tab(s) Take 5 mg by mouth twice daily. 0 Suspended Comment on above: Take 5 mg by mouth t wice daily. butenafine hydrochloride 10 mg/ml topical cream (2 sources) Benzylamine Antifungal Start: 03-06-2005 MENTAX 1 % TOPICAL CREAM as directed 0 03/06/2005 Active Comment on above: as directed clopidogrel 75 mg oral tablet (7 sources) P2Y12 Platelet Inhibitor Start: 01-23-2019 End: 12-30-2021 take 75 mg by mouth once daily [...] affected ar ea once daily as needed. furosemide 20 mg oral tablet (11 sources) Loop Diuretic Start: 01-23-2019 End: 03-18-2023 take 1 tablet by mouth in the morning furosemide (Lasix) 20 MG tablet Take 20 mg by mouth in the morning. 0 08/10/2021 03/18/2023 Discontinued (Therapy completed) Comment on above: Take 1 tablet by debi th once daily. MULTIVITAMIN TABLET (5 sources) Start: 04-19-2003 MULTIVITAMIN [...] TAKE 2 CAPSULES BY OUT TWICE DAILY. simvastatin 40 mg oral tablet (4 sources) HMG-CoA Reductase Inhibitor Start: 10-28-2016 End: 12-30-2021 take 40 mg by mouth once daily Simvastatin Discontinued 40 MG PO Daily January 23, 2019 1:00am December 30, 2021 2:19pm Comment on above: TAKE 1 TABLET BY DEBI TH DAILY AT BEDTIME. vit A/C/E ac/ZnOx/cupric oxide (EYE VITAMIN AND MINERALS ORAL) (5 sources) vit A/C/E ac/ZnOx/cupric oxide (EYE VITAMIN AND [...] severity] Onset: 3 06-11-2003 Chronic Conduction disorders (8 sources) Presence of cardiac pacemaker; Translations: [Cardiac pacemaker in situ] Onset: 3 10-08-2022 Chronic Congestive heart failure; nonhypertensive (1 source) Heart failure, unspecified; Translations: [HEART FAILURE UNSPECIFIED] Onset: 2 Chronic Coronary atherosclerosis and other heart disease (20 sources) Coronary arteriosclerosis; Translations: [Atherosclerotic heart disease of [place] coronary artery without angina pectoris] Onset: 7 [...] Onset: 2 09-30-2021 Chronic Hyperplasia of prostate (6 sources) Benign prostatic hyperplasia without lower urinary [...] 9 09-07-2008 Chronic Open wounds of extremities (20 sources) Amputated left lower limb above knee; [...] organ transplant] Chronic Other aftercare (1 source) Long-term current use of immunosuppressive drug; Translations: [Other terminal manager (current) drug therapy] Episodic Other aftercare (13 sources) Long-term current use of insulin; Translations: [jail (current) use of insulin] Episodic Other aftercare (10 sources) jail (current) use of insulin; Translations: [WATER QUALITY ASSISTANT CURRENT USE OF INSULIN] Onset: 2 Episodic Other aftercare (1 source) Other terminal manager (current) drug therapy; Translations: [OTH WATER QUALITY ASSISTANT CURRENT DRUG THERAPY] Onset: 3 Episodic Other aftercare (5 sources) termite exterminator helper (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 of anticoagulants; Translations: [WATER QUALITY ASSISTANT CURRNT USE ANTICOAGULANTS] Onset: 3 Episodic Other [...] leg above knee Chronic Other endocrine disorders (5 sources) Adrenal cortical hypofunction; Translations: [Unspecified adrenocortical insufficiency] [...] with pain Chronic Other nervous system disorders (5 sources) Autonomic neuropathy; Translations: [Disorder of the autonomic nervous system, unspecified] Onset: 3 10-08-2022 Chronic Other nutritional; endocrine; and metabolic disorders (19 sources) Obesity; Translations: [Other obesity due to excess calories] Onset: 2 11-29-2021 Chronic Other nutritional; endocrine; and metabolic disorders (1 source) Obesity, unspecified; Translations: [OBESITY UNSPECIFIED] Onset: 2 Chronic Other nutritional; endocrine; and metabolic disorders (6 sources) Obesity caused by energy imbalance; Translations: [...] ulcer of sacral region, unstageable] Onset: 3 Unclassified (2 sources) Permanent atrial fibrillation; Translations: [Permanent atrial fibrillation] Onset: 5 Past or Other Problems Problem Classification Problem [...] steroids] Onset: 07-30-2006 07-30-2006 Episodic Other aftercare (4 sources) Encounter for orthopedic aftercare following surgical amputation; Translations: [ENC ORTHOPED AFTERCARE FLW SURG AMP] Onset: 02-05-2022 Episodic Other aftercare (4 sources) jail (current) use of antibiotics; Translations: [WATER QUALITY ASSISTANT CURRENT USE ANTIBIOTICS] Onset: 12-20-2021 Episodic Other aftercare (1 source) termite exterminator helper (current) use of aspirin; Translations: [WATER QUALITY ASSISTANT CURRENT USE OF ASPIRIN] Onset: 01-19-2022 Episodic Other aftercare (4 sources) Long-term current use of steroid; Translations: [Encounter for long-term (current) use of steroids] Onset: 07-30-2006 08-26-2023 Episodic Other circulatory disease (4 sources) Other specified symptoms and signs involving the circulatory and respiratory systems; Translations: [OTH SPEC SX SIGNS INVLV CIRC RS] Onset: 11-14-2021 Episodic Other circulatory disease (5 sources) Chronic orthostatic hypotension; Translations: [Orthostatic hypotension] Onset: 03-23-2012 10-08-2022 Episodic Other circulatory disease (5 sources) H/O: cardiovascular disease; Translations: [Personal history of other diseases of the circulatory system] Onset: 05-23-2013 10-08-2022 Episodic Other circulatory disease (4 sources) Alteration in tissue perfusion; Translations: [Other specified symptoms and signs involving the circulatory and respiratory systems] Resolved: 09-30-2021 09-30-2021 Episodic Other connective tissue disease (1 [...] Value Interpretation Reference Range Facility Office Visiton 04-11-2024 Follow-up visit [id number] Alex Almonte 1945 M Date Provider Department Center 04/11/2024 Oscar-MILAGRO QUEEN [facility] Family History Problem Relation Age of Onset Cancer Mother Aneurysm Father Cancer Father Parkinsonism Father Family Status - Relation Status Age at Mother Father Level of Service:98149 [place] OFFICE/OUTPATIENT NEW MODERATE MDM 45 MINUTES Normal [facility] CNPRosalie 03-31-2024 DIAMANTEN Telephone (KIMBERLY) ALEX ALMONTE ([id number]) 1945 M Date Time Provider Department 03/31/24 ASIA PIKE During your visit today, we recorded the following information about you: Asia Pike MD 03/31/2024 11:49 AM Signed called to pt March 31, 2024 11:44 AM Pt. in [facility] [phone] Related to his nurse Marichuy, INR 4.3, they are managing Related we are not managing but wanted to ensure result was received and reviewed with his team. Asia Pike MD Allergies As of Date: 03/31/2024 Noted Allergy Reaction PYRIDOSTIGMINE BROMIDE 08/04/2021 8 - GI Upset Date Reviewed: 02/26/2022 Reviewed by: Braden Abel MA - Fully Assessed Prescriptions as of 03/31/2024 - tacrolimus IR (PROGRAF) 1 mg capsule TAKE 1 CAPSULE BY MOUTH TWICE DAILY. TAKE 12 HOURS APART - acetaminophen (TYLENOL [...] by mouth daily with lunch. Magic Cup Lamoure with lunch - aspirin, enteric coated (ASPIRIN, ENTERIC COATED) 81 mg EC tablet Take 1 tablet by mouth once daily. - atorvastatin (LIPITOR) 40 mg tablet 1 tablet by ORAL/FEEDING TUBE route daily at bedtime. - predniSONE (DELTASONE) 5 mg tablet TAKE 1 TABLET BY MOUTH EVERY DAY Problem List As Of Date 03/31/2024 Noted Resolved ULCER OF LOWER LIMB, UNSPEC [L97.909] 02/24/2002 DIAB RENAL MANIF ADULT-UNCONTRLLD [E11.29, E11.*02/24/2002 Type 2 diabetes mellitus with diabetic neuropat*02/24/2002 DIABETES UNCOMPL ADULT-UNCONTRLLED [[id number]] 02/24/2002 KIDNEY TRANSPLANT STATUS [Z94.0] 09/07/2003 PROPHYLACTIC IMMUNOTHERAPY [Z29.89] 07/30/2006 CORRECTION STEROIDS [[id number]] 07/30/2006 VITAMIN D DEFICIENCY NOS [E55.9] 09/07/2008 [...] diabetes mellitus with diabetic peripher*11/29/2021 Atherosclerosis of [place] artery of extremity w*11/29/2021 Malnutrition of moderate degree (HCC) [E44.0] 12/01/2021 Dermatitis associated with (more content not included)... Normal [facility] HbA1c (Bld) [Mass fraction]o n 03-30-2024 Interpretation and review of laboratory results Normal [facility] - Hematology and Cell countson 03-30-2024 HbA1c (Bld) [Mass fraction] 7.7 % [facility] HbA1c (Bld) [Mass fraction]o n 12-23-2023 Interpretation and review of laboratory results Abnormal [facility] Hematology and Cell countson 12-23-2023 HbA1c (Bld) [Mass fraction] 8.4 % [facility] Sonya 10-06-2023 DIAMANTEN Telephone (KIMBERLY) ALEX ALMONTE ([id number]) 1945 M Date Time Provider Department 10/06/23 VAN OLIVAREZ During your visit today, we recorded the following information about you: Van Olivarez APRN.DIAMANTE 10/06/2023 4:16 PM Signed Called [facility] [phone] where pt resides, spoke with his Nurse, Socorro regarding INR of 5.3, they were aware and are holding Coumadin x 2 doses and will resume at 4mg on Sat.10/08. Also, changed lab orders from Dr. Brown to Dr. Pike. Van Olivarez APRN.CUPOLA TAPPER HELPER Allergies As of Date: 10/06/2023 Noted Allergy Reaction PYRIDOSTIGMINE BROMIDE 08/04/2021 8 - GI Upset Date Reviewed: 02/26/2022 Reviewed by: Braden Abel MA - Fully Assessed Prescriptions as of 10/06/2023 - tacrolimus IR (PROGRAF) 1 mg capsule [...] by mouth daily with lunch. Magic Cup Lamoure with lunch - aspirin, enteric coated (ASPIRIN, ENTERIC COATED) 81 mg EC tablet Take 1 tablet by mouth once daily. - atorvastatin (LIPITOR) 40 mg tablet 1 tablet by ORAL/FEEDING TUBE route daily at bedtime. - predniSONE (DELTASONE) 5 mg tablet TAKE 1 TABLET BY MOUTH EVERY DAY Problem List As Of Date 10/06/2023 Noted Resolved ULCER OF LOWER LIMB, UNSPEC [L97.909] 02/24/2002 DIAB RENAL MANIF ADULT-UNCONTRLLD [E11.29, E11.*02/24/2002 Type 2 diabetes mellitus with diabetic neuropat*02/24/2002 DIABETES UNCOMPL ADULT-UNCONTRLLED [[id number]] 02/24/2002 KIDNEY TRANSPLANT STATUS [Z94.0] 09/07/2003 PROPHYLACTIC IMMUNOTHERAPY [Z29.89] 07/30/2006 WATER QUALITY ASSISTANT STEROIDS [[id number]] 07/30/2006 VITAMIN D DEFICIENCY NOS [E55.9] 09/07/2008 [...] diabetes mellitus with diabetic peripher*11/29/2021 Atherosclerosis of [place] artery of extremity w*11/29/2021 Malnutrition of moderate degree (HCC) [E44.0] 12/01/2021 Dermatitis associated (more content not included)... Normal [facility] Office Visiton 05-19-2023 Follow-up visit [id number] Alex Almonte 1945 M Date Provider Department Center 05/19/2023 Marlene-CAITY IBRAHIM Family History Problem Relation Age of Onset Cancer Mother Aneurysm Father Cancer Father Parkinsonism Father Family Status - Relation Status Age at Mother Father Level of Service:19925 [place] OFFICE/OUTPATIENT ESTABLISHED LOW MDM 20 MIN Reason for Visit and Comments: Follow-up [275643] - 6 month follow up Normal [facility] HbA1c (Bld) [Mass fraction]o n 03-18-2023 Interpretation and review of laboratory results Normal [facility] POCT glycosylated hemoglobin (Hb A1C) docked deviceon 03-18-2023 HbA1c (Bld) [Mass fraction] 7.8 % [facility] [employer] Glucose Poct Glucometerson 0 07-20-2022 Commemt1 Glu2: Cleaned Meter Normal [facility] Comment on above: Result Comment: PERF ORMED BY: [facility] [place] [address] PATHOLOGIST ACID REMOVER JOSE F ELLIOTT M.D. Performed By: #### G LULS #### Point of Care testing , Glucose [Mass/Vol] 176 mg/dL Normal [facility] Comment on above: Result Comment: [facility] Glucose Reference Range is dependent on time and content of last meal. Glucose of more than 200 mg/dL in a nonstressed, ambulatory subject supports the diagnosis of Diabetes Mellitus. Performed By: #### G LULS #### Point of Care testing , FK506 (TACROLIMUS) WHOLE BLO ODon 07-12-2022 Tacrolimus (FK506), Blood 10.9 ng/mL Normal 2.0-20.0 [facility] Comment on above: Result Comment: Trou gh (immediately following transplant) 15.0 . Trough (steady state, 2 weeks or more after transplant): 3.0 - 8.0 . Performed by LC-MS/MS technology. Performed By: #### F K506T ####[facility] [address] [place] [address]Dr. Farhat Leal CBC AUTO DIFFon 07-10-2022 BASO # 0.0 103/ul Normal 0.0-0.1 [facility] Comment on above: Performed By: #### C BC ####[facility] Tglb[address]zef[address] [place] [address]Dr. Farhat Leal Basophils/100 WBC (Bld) 0.5 % Normal 0.2-2.0 [facility] Comment on above: Performed By: #### C BC ####[facility] Exkilioois[address] [place] [address]Dr. Farhat Leal EO # 0.3 103/ul Normal 0.0-0.7 [facility] Comment on above: Performed By: #### C BC ####[facility] Iumjgzplvo[address] [place] [address]Dr. Farhat Leal Eosinophils/100 WBC (Bld) 4.9 % Normal 0.9-7.0 [facility] Comment on above: Performed By: #### C BC ####[facility] Oxpvauwokm[address] [place], [place] [address]Dr. Farhat Leal Erythrocyte distribution width (RBC) [Ratio] 13.8 % Normal 11.0-15.0 [facility] Comment on above: Performed By: #### C BC ####[facility] Deqpwsnirw[address] [place], [place] [address]Dr. Farhat Leal Hematocrit (Bld) [Volume fraction] 36.6 % Critically low 42.0-54.0 [facility] Comment on above: Performed By: #### C BC ####[facility] Kfeujysqhk[address] [place], [place] [address]Dr. Farhat Leal Hemoglobin (Bld) [Mass/Vol] 12.2 g/dL Critically low 14.0-18.0 [facility] Comment on above: Performed By: #### C BC ####[facility] Pwhkdvvjxs99[address] [place], [place] [address]Dr. Farhat Leal IG # 0.01 10e3/ul Normal 0.00-0.03 [facility] Comment on above: Performed By: #### C BC ####[facility] Fcstgdbtvj47[address] [place], [place] [address]Dr. Farhat Leal IG % 0.2 % Normal 0.0-0.5 [facility] Comment on above: Performed By: #### C BC ####[facility] Ofxzbvprrx017[address] [place], [place] [address]Dr. Farhat Leal LYMPH # 2.2 103/ul Normal 1.2-3.8 [facility] Comment on above: Performed By: #### C BC ####[facility] Kahpuponex457[address] [place], [place] [address]Dr. Farhat Leal Lymphocytes/100 WBC (Bld) 33.9 % Normal 20.5-60.0 [facility] Comment on above: Performed By: #### C BC ####[facility] Zfnczpmfbb34[address] [place] [address]DrSkylar Leal MANUAL DIFF REQ NO Normal [facility] Comment on above: Performed By: #### C BC ####[facility] Zslruziyjq7[address] [place] [address]Dr. Farhat Leal MCH (RBC) [Entitic mass] 31.0 pg Normal 25.9-34.0 [facility] Comment on above: Performed By: #### C BC ####[facility] Mwuyiressl213[address] [place], [place] [address]Dr. Farhat Leal MCHC (RBC) [Mass/Vol] 33.3 g/dL Normal 29.9-35.2 [facility] Comment on above: Performed By: #### C BC ####[facility] Nkuugmwdgs75[address] [place], [place] [address]Dr. Farhat Leal MCV (RBC) [Entitic vol] 93.1 fL Normal 80.0-94.0 [facility] Comment on above: Performed By: #### C BC ####[facility] Odigikbelj306[address] [place], [place] [address]DrSkylar Leal MONO # 0.7 103/ul Normal 0.3-0.8 [facility] Comment on above: Performed By: #### C BC ####[facility] Ecvuslrxca563[address] [place], [place] [address]Dr. Farhat Leal Monocytes/100 WBC (Bld) 10.8 % Normal 1.7-12.0 [facility] Comment on above: Performed By: #### C BC ####[facility] Nwrcvxpdsi964[address] [place], [place] [address]DrSkylar Leal NEUT # 3.2 103/ul Normal 1.4-6.5 [facility] Comment on above: Performed By: #### C BC ####[facility] Edprznyybf6724[address] [place], [place] [address]DrSkylar Leal Neutrophils/100 WBC (Bld) 49.7 % Normal 43.0-75.0 [facility] Comment on above: Performed By: #### C BC ####[facility] Ttiemjbukf[address] [place] [address]Dr. Farhat Leal Platelet mean volume (Bld) [Entitic vol] 10.9 fL Normal 9.5-13.5 [facility] Comment on above: Performed By: #### C BC ####[facility] Sfvpwzrswu112[address] [place], [place] [address]Dr. Farhat Leal PLT 195 103/ul Normal 150-450 [facility] Comment on above: Performed By: #### C BC ####[facility] Jgkgaystlj883[address] [place], [place] [address]Dr. Farhat Leal RBC 3.93 106/ul Critically low 4.70-6.10 [facility] Comment on above: Performed By: #### C BC ####[facility] Zmiinbbgee8918[address] [place], [place] [address]Dr. Farhat Elvis WBC 6.4 103/ul Normal 4.0-11.0 [facility] Comment on above: Performed By: #### C BC ####[facility] Qogswqrvnq22[address] [place], [place] [address]Dr. Farhat Leal MAGNESIUMon 07-10-2022 Magnesium [Mass/Vol] 1.9 mg/dL Normal 1.8-2.4 [facility] Comment on above: Performed By: #### HENRI Winters ####[facility] Tyjzqbhfcv536[address] [place], [place] [address]Dr. Farhat Elvis PHOSPHORUSon 07-10-2022 Phosphate [Mass/Vol] 4.7 mg/dL Normal 2.6-4.7 [facility] Comment on above: Performed By: #### HENRI Winters ####[facility] Klxhfitcvy009[address] [place], [place] [address]DrSkylar Madelynlorri Leal PROF 14(COMP METB)on 023 Albumin [Mass/Vol] 2.7 g/dL Critically low 3.4-5.0 [facility] Comment on above: Performed By: #### C MP ####[facility] Klolyqxrfr[address] [place] [address]Dr. Farhat Leal Albumin/Globulin [Mass ratio] 0.8 {ratio} Normal [facility] Comment on above: Performed By: #### C MP ####[facility] Qxjyzwplfq[address] [place] [address]Dr. Farhat Leal ALP [Catalytic activity/Vol] 59 U/L Normal 46-116 [facility] Comment on above: Performed By: #### C MP ####[facility] Vbnpxfngvd040[address] [place] [address]Dr. Farhat Elvis ALT [Catalytic activity/Vol] 16 U/L Normal 16-63 [facility] Comment on above: Performed By: #### C MP ####[facility] Jtgcideeis[address] [place], [place] [address]Dr. Farhat Leal Anion gap [Moles/Vol] 12.3 mmol/L Normal [facility] Comment on above: Performed By: #### C MP ####[facility] Yhnstlplgy58[address] [place], [place] [address]Dr. Farhat Elvis AST [Catalytic activity/Vol] 17 U/L Normal 15-37 [facility] Comment on above: Performed By: #### C MP ####[facility] Ynpdxpwbsk652[address] [place], [place] [address]Dr. Farhat Elvis Bilirubin [Mass/Vol] 0.5 mg/dL Normal 0.2-1.0 [facility] Comment on above: Performed By: #### C MP ####[facility] Czxneekunj433[address] [place], [place] [address]Dr. Farhat Elvis Calcium [Mass/Vol] 8.5 mg/dL Normal 8.5-10.1 [facility] Comment on above: Performed By: #### C MP ####[facility] Hutcqjkbzu9099[address] [place], [place] [address]Dr. Farhat Leal Chloride [Moles/Vol] 104 mmol/L Normal 98-107 [facility] Comment on above: Performed By: #### C MP ####[facility] Gfgvfkzior0667[address] [place], [place] [address]Dr. Farhat Leal CO2 [Moles/Vol] 27.6 mmol/L Normal 21.0-32.0 [facility] Comment on above: Performed By: #### C MP ####[facility] Zcqhibnotj[address] [place] [address]Dr. Farhat Leal Creatinine [Mass/Vol] 1.79 mg/dL Critically high 0.70-1.30 [facility] Comment on above: Performed By: #### C MP ####[facility] Mbpylobwtw[address] [place] [address]Dr. Farhat Leal EGFR-AF IRISH 45 mL/min/1.73m2 Critically low >=60 [facility] Comment on above: Performed By: #### C MP ####[facility] Svzkqoruie[address] [place] [address]Dr. Farhat Elvis EGFR-NON AF IRISH 37 mL/min/1.73m2 Critically low >=60 [facility] Comment on above: Performed By: #### C MP ####[facility] Mhlypshfrm[address] [place], [place] [address]Dr. Farhat Elvis Globulin (S) [Mass/Vol] 3.2 g/dL Normal [facility] Comment on above: Performed By: #### C MP ####[facility] Kthceyjszn4[address] [place] [address]Dr. Farhat Elvis Glucose [Mass/Vol] 203 mg/dL Critically high 74-106 [facility] Comment on above: Performed By: #### C MP ####[facility] Egldkvpatq0387[address] [place], [place] [address]Dr. Farhat Elvis Potassium [Moles/Vol] 3.9 mmol/L Normal 3.5-5.1 [facility] Comment on above: Performed By: #### C MP ####[facility] Qhmcvjwhqf5549[address] [place], [place] [address]Dr. Farhat Leal Protein [Mass/Vol] 5.9 g/dL Critically low 6.4-8.2 [facility] Comment on above: Performed By: #### C MP ####[facility] Exudkbcwud[address] [place] [address]Dr. Farhat Leal Sodium [Moles/Vol] 140 mmol/L Normal 136-145 [facility] Comment on above: Performed By: #### C MP ####[facility] Nidmxkqplp640[address] [place], [place] [address]Dr. Farhat Leal Urea nitrogen [Mass/Vol] 61.0 mg/dL Critically high 7.0-18.0 [facility] Comment on above: Performed By: #### C MP ####[facility] Bodmhkgchw[address] [place], [place] [address]Dr. Farhat Leal Urea nitrogen/Creatinine [Mass ratio] 34.1 mg/mg Normal [facility] Comment on above: Performed By: #### C MP ####[facility] Nypczlqgmn24[address] [place], [place] [address]Dr. Farhat Leal PROTIMEon 07-10-2022 INR Coag (PPP) [Relative time] 2.95 {INR} Normal [facility] Comment on above: Performed By: #### P T ####[facility] Gwrymbadpr[address] [place], [place] [address]Dr. Farhat Leal INR GUIDELINES SEE BELOW Normal [facility] Comment on above: Result Comment: MALINA RED INR: 2.0 - 3.0 CONDITIONS NOT LISTED BELOW 2.5 - 3.5 FOR PROSTHETIC HEART VALVE REPLACEMENT 2.5 - 3.5 RECURRENT THROMBOSIS Performed By: #### P T ####[facility] Yfcwtzezcy[address] [place], [place] [address]Dr. Farhat Leal PT Coag (PPP) [Time] 29.4 s Critically high 9.0-11.6 [facility] Comment on above: Performed By: #### P T ####[facility] Qakmldcrtl315[address] [place], [place] [address]Dr. Farhat Leal FK506 (TACROLIMUS) WHOLE BLO ODon 07-07-2022 Tacrolimus (FK506), Blood 8.3 ng/mL Normal 2.0-20.0 [facility] Comment on above: Result Comment: Trou gh (immediately following transplant) 15.0 . Trough (steady state, 2 weeks or more after transplant): 3.0 - 8.0 . Performed by LC-MS/MS technology. Performed By: #### F K506T ####[facility] Konwidymrb[address] [place] [address]Dr. Farhat Leal CBC AUTO DIFFon 07-03-2022 BASO # 0.0 103/ul Normal 0.0-0.1 [facility] Comment on above: Performed By: #### C BC ####[facility] Fajpblygkj8075[address] [place], [place] [address]Dr. Farhat Leal Basophils/100 WBC (Bld) 0.6 % Normal 0.2-2.0 [facility] Comment on above: Performed By: #### C BC ####[facility] Rqiyofmapc6589[address] [place], [place] [address]Dr. Madelynlorri Leal EO # 0.3 103/ul Normal 0.0-0.7 [facility] Comment on above: Performed By: #### C BC ####[facility] Cvyrgjhxht4430[address] [place], [place] [address]Dr. Farhat Leal Eosinophils/100 WBC (Bld) 4.1 % Normal 0.9-7.0 [facility] Comment on above: Performed By: #### C BC ####[facility] Ahraqvbsvo4217[address] [place], [place] [address]Dr. Farhat Elvis Erythrocyte distribution width (RBC) [Ratio] 14.0 % Normal 11.0-15.0 [facility] Comment on above: Performed By: #### C BC ####[facility] Xjrtdmwjpg7[address] [place], [place] [address]Dr. Farhat Leal Hematocrit (Bld) [Volume fraction] 35.9 % Critically low 42.0-54.0 [facility] Comment on above: Performed By: #### C BC ####[facility] Lyiwauzzce997[address] [place], [place] [address]Dr. Farhat Leal Hemoglobin (Bld) [Mass/Vol] 12.0 g/dL Critically low 14.0-18.0 [facility] Comment on above: Performed By: #### C BC ####[facility] Cmlhrztotr[address] [place], [place] [address]DrSkylar Leal IG # 0.04 10e3/ul Critically high 0.00-0.03 [facility] Comment on above: Performed By: #### C BC ####[facility] Whcutlegwa[address] [place] [address]DrSkylar Leal IG % 0.6 % Critically high 0.0-0.5 [facility] Comment on above: Performed By: #### C BC ####[facility] Zvesufhaor6[address] [place] [address]DrSkylar Leal LYMPH # 1.5 103/ul Normal 1.2-3.8 [facility] Comment on above: Performed By: #### C BC ####[facility] Kcvphvsrvz[address] [place], [place] [address]DrSkylar Leal Lymphocytes/100 WBC (Bld) 21.5 % Normal 20.5-60.0 [facility] Comment on above: Performed By: #### C BC ####[facility] Bdhccrzfus[address] [place], [place] [address]DrSkylar Leal MANUAL DIFF REQ NO Normal [facility] Comment on above: Performed By: #### C BC ####[facility] Vcglekxnfu526[address] [place], [place] [address]DrSkylar Leal MCH (RBC) [Entitic mass] 30.8 pg Normal 25.9-34.0 [facility] Comment on above: Performed By: #### C BC ####[facility] Cfsvrskobd[address] [place], [place] [address]DrSkylar Leal MCHC (RBC) [Mass/Vol] 33.4 g/dL Normal 29.9-35.2 [facility] Comment on above: Performed By: #### C BC ####[facility] Nvhrfmqlws[address] [place], [place] [address]DrSkylar Leal MCV (RBC) [Entitic vol] 92.1 fL Normal 80.0-94.0 [facility] Comment on above: Performed By: #### C BC ####[facility] Mvequebckb35[address] [place], [place] [address]DrSkylar Leal MONO # 0.6 103/ul Normal 0.3-0.8 [facility] Comment on above: Performed By: #### C BC ####[facility] Rigichbipt[address] [place] [id number]. Farhat Leal Monocytes/100 WBC (Bld) 8.7 % Normal 1.7-12.0 [facility] Comment on above: Performed By: #### C BC ####[facility] Fasonzdkef[address] [place] [address]Dr. Farhat Leal NEUT # 4.4 103/ul Normal 1.4-6.5 [facility] Comment on above: Performed By: #### C BC ####[facility] Ndayhlstrc9[address] [place] [address]DrSkylar Farhat Leal Neutrophils/100 WBC (Bld) 64.5 % Normal 43.0-75.0 [facility] Comment on above: Performed By: #### C BC ####[facility] Qwfqfsihai9660[address] [place], [place] [address]DrSkylar Farhat Leal Platelet mean volume (Bld) [Entitic vol] 10.1 fL Normal 9.5-13.5 [facility] Comment on above: Performed By: #### C BC ####[facility] Iytjrudxyo8764[address] [place], [place] [address]Dr. Farhat Leal PLT 177 103/ul Normal 150-450 [facility] Comment on above: Performed By: #### C BC ####[facility] Axsiolarrq[address] [place] [id number] Farhat Leal RBC 3.90 106/ul Critically low 4.70-6.10 [facility] Comment on above: Performed By: #### C BC ####[facility] Uozyteshrp8[address] [place] [id number] Farhat Leal WBC 6.8 103/ul Normal 4.0-11.0 [facility] Comment on above: Performed By: #### C BC ####[facility] Vkzumybirv6[address] [place], [place] [address]DrSkylar Leal PROF 14(COMP METB)on 023 Albumin [Mass/Vol] 2.8 g/dL Critically low 3.4-5.0 [facility] Comment on above: Performed By: #### C MP ####[facility] Byvbuqsbwg[address] [place] [address]Dr. Farhat Leal Albumin/Globulin [Mass ratio] 0.8 {ratio} Normal [facility] Comment on above: Performed By: #### C MP ####[facility] Nbfrnthbib4[address] [place] [address]Dr. Farhat Leal ALP [Catalytic activity/Vol] 68 U/L Normal 46-116 [facility] Comment on above: Performed By: #### C MP ####[facility] Dxhbjmclki[address]140[address] [place], [place] [address]Dr. Farhat Leal ALT [Catalytic activity/Vol] 20 U/L Normal 16-63 [facility] Comment on above: Performed By: #### C MP ####[facility] Aiknjltatc5026[address] [place], [place] [address]Dr. Farhat Leal Anion gap [Moles/Vol] 11.1 mmol/L Normal [facility] Comment on above: Performed By: #### C MP ####[facility] Bwhspbvwhg4[address] [place], [place] [address]Dr. Farhat Leal AST [Catalytic activity/Vol] 22 U/L Normal 15-37 [facility] Comment on above: Performed By: #### C MP ####[facility] Getikaifcp9237[address] [place], [place] [address]Dr. Farhat Leal Bilirubin [Mass/Vol] 0.4 mg/dL Normal 0.2-1.0 [facility] Comment on above: Performed By: #### C MP ####[facility] Yljzzdylht39[address] [place], [place] [address]Dr. Farhat Leal Calcium [Mass/Vol] 8.5 mg/dL Normal 8.5-10.1 [facility] Comment on above: Performed By: #### C MP ####[facility] Xcgatsmexa6833[address] [place], [place] [address]Dr. Farhat Leal Chloride [Moles/Vol] 106 mmol/L Normal 98-107 [facility] Comment on above: Performed By: #### C MP ####[facility] Vbqaiirhjz[address] [place] [address]Dr. Farhat Elvis CO2 [Moles/Vol] 29.1 mmol/L Normal 21.0-32.0 [facility] Comment on above: Performed By: #### C MP ####[facility] Xcdkiqzskh180[address] [place], [place] [address]Dr. Farhat Elvis Creatinine [Mass/Vol] 1.70 mg/dL Critically high 0.70-1.30 [facility] Comment on above: Performed By: #### C MP ####[facility] Esobgugtfh9612[address] [place], [place] [address]Dr. Farhat Elvis EGFR-AF IRISH 48 mL/min/1.73m2 Critically low >=60 [facility] Comment on above: Performed By: #### C MP ####[facility] Hybywcmnxt1024[address] [place], [place] [address]Dr. Farhat Elvis EGFR-NON AF IRISH 39 mL/min/1.73m2 Critically low >=60 [facility] Comment on above: Performed By: #### C MP ####[facility] Uosotgvjyu5864[address] [place], [place] [address]Dr. Madelynlorri Leal Globulin (S) [Mass/Vol] 3.6 g/dL Normal [facility] Comment on above: Performed By: #### C MP ####[facility] Tqvpitfsjy207[address] [place], [place] [address]Dr. Farhat Leal Glucose [Mass/Vol] 312 mg/dL Critically high 74-106 [facility] Comment on above: Performed By: #### C MP ####[facility] Cntrnnjzty784[address] [place], [place] [address]Dr. Farhat Leal Potassium [Moles/Vol] 4.2 mmol/L Normal 3.5-5.1 [facility] Comment on above: Performed By: #### C MP ####[facility] Toxjthktyu6632[address] [place], [place] [address]Dr. Farhat Leal Protein [Mass/Vol] 6.4 g/dL Normal 6.4-8.2 [facility] Comment on above: Performed By: #### C MP ####[facility] Uvqqapfnfh4600[address] [place], [place] [address]Dr. Farhat Leal Sodium [Moles/Vol] 142 mmol/L Normal 136-145 [facility] Comment on above: Performed By: #### C MP ####[facility] Otdecagnsg[address] [place], [place] [address]Dr. Farhat Leal Urea nitrogen [Mass/Vol] 49.0 mg/dL Critically high 7.0-18.0 [facility] Comment on above: Performed By: #### C MP ####[facility] Bcvlfrulbv03[address] [place], [place] [address]Dr. Farhat Leal Urea nitrogen/Creatinine [Mass ratio] 28.8 mg/mg Normal [facility] Comment on above: Performed By: #### C MP ####[facility] Rdjsekcdim[address] [place], [place] [address]Dr. Farhat Leal PROTIMEon 07-03-2022 INR Coag (PPP) [Relative time] 2.23 {INR} Normal [facility] Comment on above: Performed By: #### P T ####[facility] Ukvbkhzhzj[address] [place], [place] [address]Dr. Farhat Leal INR GUIDELINES SEE BELOW Normal [facility] Comment on above: Result Comment: MALINA RED INR: 2.0 - 3.0 CONDITIONS NOT LISTED BELOW 2.5 - 3.5 FOR PROSTHETIC HEART VALVE REPLACEMENT 2.5 - 3.5 RECURRENT THROMBOSIS Performed By: #### P T ####[facility] Xprybqjsua157[address] [place], [place] [address]Dr. Farhat Leal PT Coag (PPP) [Time] 22.6 s Critically high 9.0-11.6 [facility] Comment on above: Performed By: #### P T ####[facility] Jecbpmccvr9[address] [place], [place] [address]Dr. Farhat Leal FK506 (TACROLIMUS) WHOLE BLO ODon 06-29-2022 Tacrolimus (FK506), Blood 12.2 ng/mL Normal 2.0-20.0 [facility] Comment on above: Result Comment: Trou gh (immediately following transplant) 15.0 . Trough (steady state, 2 weeks or more after transplant): 3.0 - 8.0 . Performed by LC-MS/MS technology. Performed By: #### F K506T ####[facility] Uiictkgsaf[address] [place] [address]Dr. Farhat Leal CBC AUTO DIFFon 06-26-2022 BASO # 0.0 103/ul Normal 0.0-0.1 [facility] Comment on above: Performed By: #### C BC ####[facility] Ecjdmejxqq[address] [place], [place] [address]Dr. Farhat Leal Basophils/100 WBC (Bld) 0.5 % Normal 0.2-2.0 [facility] Comment on above: Performed By: #### C BC ####[facility] Nhvpzvmgfd[address] [place], [place] [address]Dr. Farhat Leal EO # 0.3 103/ul Normal 0.0-0.7 [facility] Comment on above: Performed By: #### C BC ####[facility] Sucfwxcoff[address] [place], [place] [address]Dr. Farhat Leal Eosinophils/100 WBC (Bld) 4.3 % Normal 0.9-7.0 [facility] Comment on above: Performed By: #### C BC ####[facility] Weqtbmzsav7[address] [place], [place] [address]Dr. Farhat Leal Erythrocyte distribution width (RBC) [Ratio] 14.1 % Normal 11.0-15.0 [facility] Comment on above: Performed By: #### C BC ####[facility] Zbqngsqcnv10[address] [place], [place] [address]DrSkylar Leal Hematocrit (Bld) [Volume fraction] 35.4 % Critically low 42.0-54.0 [facility] Comment on above: Performed By: #### C BC ####[facility] Zgvvimswxp[address] [place], [place] [address]Dr. Farhat Leal Hemoglobin (Bld) [Mass/Vol] 11.8 g/dL Critically low 14.0-18.0 [facility] Comment on above: Performed By: #### C BC ####[facility] [address]ibrpemhqy[address] [place] [address]Dr. Madelynlorri Elvis IG # 0.02 10e3/ul Normal 0.00-0.03 [facility] Comment on above: Performed By: #### C BC ####[facility] [facility] Ebltkdjtqx[address] [place] [address]Dr. Farhat Leal IG % 0.3 % Normal 0.0-0.5 [facility] Comment on above: Performed By: #### C BC ####[facility] W[address]th[address] [place], [place] [address]Dr. Farhat Leal LYMPH # 2.4 103/ul Normal 1.2-3.8 [facility] Comment on above: Performed By: #### C BC ####[facility] Drjmijixmz9[address] [place], [place] [address]Dr. Farhat Leal Lymphocytes/100 WBC (Bld) 40.4 % Normal 20.5-60.0 [facility] Comment on above: Performed By: #### C BC ####[facility] Ippaqexhjo27[address] [place], [place] [address]Dr. Farhat Leal MANUAL DIFF REQ NO Normal [facility] Comment on above: Performed By: #### C BC ####[facility] Hcdncygqnc5028 [place] [address]Dr. Farhat Leal MCH (RBC) [Entitic mass] 31.0 pg Normal 25.9-34.0 [facility] Comment on above: Performed By: #### C BC ####[facility] Vbgvvsalsf[address] [place], [place] [address]Dr. Farhat Leal MCHC (RBC) [Mass/Vol] 33.3 g/dL Normal 29.9-35.2 [facility] Comment on above: Performed By: #### C BC ####[facility] Xpaiwhcieb480[address] [place] [address]Dr. Farhat Leal MCV (RBC) [Entitic vol] 92.9 fL Normal 80.0-94.0 [facility] Comment on above: Performed By: #### C BC ####[facility] Gzsnxogstn1054 [place] [id number]. Farhat Leal MONO # 0.7 103/ul Normal 0.3-0.8 [facility] Comment on above: Performed By: #### C BC ####[facility] Smnfgsgxng5502 [place] [id number]. Farhat Leal Monocytes/100 WBC (Bld) 11.1 % Normal 1.7-12.0 [facility] Comment on above: Performed By: #### C BC ####[facility] Gghgggikmx5257 [place] [id number]. Farhat Leal NEUT # 2.6 103/ul Normal 1.4-6.5 [facility] Comment on above: Performed By: #### C BC ####[facility] Pprpvgttps5237 [place] [address]Dr. Farhat Leal Neutrophils/100 WBC (Bld) 43.4 % Normal 43.0-75.0 [facility] Comment on above: Performed By: #### C BC ####[facility] Kywephnunu3354 [place] [phone]. Farhat Leal Platelet mean volume (Bld) [Entitic vol] 10.4 fL Normal 9.5-13.5 [facility] Comment on above: Performed By: #### C BC ####[facility] Hzctqamxhj5198 [place] [id number]. Farhat Leal PLT 211 103/ul Normal 150-450 [facility] Comment on above: Performed By: #### C BC ####[facility] Gruljvszfm5715 [place] [id number]. Farhat Leal RBC 3.81 106/ul Critically low 4.70-6.10 [facility] Comment on above: Performed By: #### C BC ####[facility] Yokskeycmx9987 [place] [id number]. Farhat Leal WBC 6.0 103/ul Normal 4.0-11.0 [facility] Comment on above: Performed By: #### C BC ####[facility] Jixgigewvx6957 [place] [address]Dr. Farhat Leal PROF 14(COMP METB)on 023 Albumin [Mass/Vol] 2.6 g/dL Critically low 3.4-5.0 [facility] Comment on above: Performed By: #### C MP ####[facility] Bjnplfakho[address] [place], [place] [address]Dr. Farhat Leal Albumin/Globulin [Mass ratio] 0.8 {ratio} Normal [facility] Comment on above: Performed By: #### C MP ####[facility] Geaikrdxrs228[address] [place], [place] [address]Dr. Farhat Leal ALP [Catalytic activity/Vol] 64 U/L Normal 46-116 [facility] Comment on above: Performed By: #### C MP ####[facility] Hsvhmrtjei76[address] [place], [place] [address]Dr. Farhat Leal ALT [Catalytic activity/Vol] 18 U/L Normal 16-63 [facility] Comment on above: Performed By: #### C MP ####[facility] Faweubrvlr54[address] [place], [place] [address]Dr. Farhat Leal Anion gap [Moles/Vol] 10.2 mmol/L Normal [facility] Comment on above: Performed By: #### C MP ####[facility] Kxxgsveuci1880[address] [place], [place] [address]Dr. Farhat Leal AST [Catalytic activity/Vol] 16 U/L Normal 15-37 [facility] Comment on above: Performed By: #### C MP ####[facility] Eercrnetbt3470[address] [place], [place] [address]Dr. Farhat Leal Bilirubin [Mass/Vol] 0.6 mg/dL Normal 0.2-1.0 [facility] Comment on above: Performed By: #### C MP ####[facility] Eijraunaba5527[address] [place], [place] [address]Dr. Farhat Leal Calcium [Mass/Vol] 8.5 mg/dL Normal 8.5-10.1 [facility] Comment on above: Performed By: #### C MP ####[facility] Lsdnecetpm8794 [place] [id number]. Farhat Leal Chloride [Moles/Vol] 106 mmol/L Normal 98-107 [facility] Comment on above: Performed By: #### C MP ####[facility] Zhihdkdafe4044 [place] [id number]. Farhat Leal CO2 [Moles/Vol] 29.8 mmol/L Normal 21.0-32.0 [facility] Comment on above: Performed By: #### C MP ####[facility] Ebvbapnaqr9428 [place] [address]Dr. Farhat Elvis Creatinine [Mass/Vol] 1.60 mg/dL Critically high 0.70-1.30 [facility] Comment on above: Performed By: #### C MP ####[facility] Bixgwcvknh02[address] [place], [place] [address]Dr. Farhat Elvis EGFR-AF IRISH 51 mL/min/1.73m2 Critically low >=60 [facility] Comment on above: Performed By: #### C MP ####[facility] Xhqgaccktg9864[address] [place], [place] [address]Dr. Farhat Elvis EGFR-NON AF IRISH 42 mL/min/1.73m2 Critically low >=60 [facility] Comment on above: Performed By: #### C MP ####[facility] Utdcaalace6379 [place] [address]Dr. Farhat Elvis Globulin (S) [Mass/Vol] 3.4 g/dL Normal [facility] Comment on above: Performed By: #### C MP ####[facility] Jmoaehvihy6664 [place] [address]Dr. Farhat Elvis Glucose [Mass/Vol] 178 mg/dL Critically high 74-106 [facility] Comment on above: Performed By: #### C MP ####[facility] Vksvojndcg9007 [place] [address]Dr. Farhat Leal Potassium [Moles/Vol] 4.0 mmol/L Normal 3.5-5.1 [facility] Comment on above: Performed By: #### C MP ####[facility] Wygisgbrro9155 [place] [address]Dr. Farhat Leal Protein [Mass/Vol] 6.0 g/dL Critically low 6.4-8.2 [facility] Comment on above: Performed By: #### C MP ####[facility] Pgcfbbetep8790 [place] [address]Dr. Farhat Leal Sodium [Moles/Vol] 142 mmol/L Normal 136-145 [facility] Comment on above: Performed By: #### C MP ####[facility] Iqmqiyzmzv7762 [place] [address]Dr. Farhat Leal Urea nitrogen [Mass/Vol] 49.0 mg/dL Critically high 7.0-18.0 [facility] Comment on above: Performed By: #### C MP ####[facility] Mmuczrzonx1305[address] [place], [place] [address]Dr. Farhat Leal Urea nitrogen/Creatinine [Mass ratio] 30.6 mg/mg Normal [facility] Comment on above: Performed By: #### C MP ####[facility] Hatkdfepkv045[address] [place], [place] [address]Dr. Farhat Leal PROTIMEon 06-26-2022 INR Coag (PPP) [Relative time] 1.77 {INR} Normal [facility] Comment on above: Performed By: #### P T ####[facility] Bnvxkdwywz943[address] [place], [place] [address]Dr. Farhat Leal INR GUIDELINES SEE BELOW Normal [facility] Comment on above: Result Comment: MALINA RED INR: 2.0 - 3.0 CONDITIONS NOT LISTED BELOW 2.5 - 3.5 FOR PROSTHETIC HEART VALVE REPLACEMENT 2.5 - 3.5 RECURRENT THROMBOSIS Performed By: #### P T ####[facility] Rfocqopumd2139[address] [place], [place] [address]Dr. Farhat Leal PT Coag (PPP) [Time] 18.2 s Critically high 9.0-11.6 [facility] Comment on above: Performed By: #### P T ####[facility] Aysabsqhik9397[address] [place], [place] [address]Dr. Farhat Elvis FK506 (TACROLIMUS) WHOLE BLO ODon 06-22-2022 Tacrolimus (FK506), Blood 24.5 ng/mL Invalid Interpretation Code 2.0-20.0 [facility] Comment on above: Result Comment: Trou gh (immediately following transplant) 15.0 . Trough (steady state, 2 weeks or more after transplant): 3.0 - 8.0 . Performed by LC-MS/MS technology.Patient drug level exceeds published reference range. Evaluateclinically for signs of potential toxicity. Performed By: #### F K506T ####[facility] Vwbfdlzvlc[address] [place], [place] [address]Dr. Farhat Leal CBC AUTO DIFFon 06-19-2022 BASO # 0.1 103/ul Normal 0.0-0.1 [facility] Comment on above: Performed By: #### C BC ####[facility] Ojvnooyxet32[address] [place], [place] [address]Dr. Farhat Leal Basophils/100 WBC (Bld) 0.7 % Normal 0.2-2.0 [facility] Comment on above: Performed By: #### C BC ####[facility] Xqtlbepgeo08[address] [place], [place] [address]DrSkylar Leal EO # 0.4 103/ul Normal 0.0-0.7 [facility] Comment on above: Performed By: #### C BC ####[facility] Ripouylocp47[address] [place], [place] [address]Dr. Farhat Leal Eosinophils/100 WBC (Bld) 5.7 % Normal 0.9-7.0 [facility] Comment on above: Performed By: #### C BC ####[facility] Xfpertjson[address] [place], [place] [address]Dr. Farhat Leal Erythrocyte distribution width (RBC) [Ratio] 14.5 % Normal 11.0-15.0 [facility] Comment on above: Performed By: #### C BC ####[facility] Weijazmlla8[address] [place], [place] [address]Dr. Farhat Leal Hematocrit (Bld) [Volume fraction] 34.1 % Critically low 42.0-54.0 [facility] Comment on above: Performed By: #### C BC ####[facility] Jqfjiyitre7889 [place] [address]Dr. Farhat Leal Hemoglobin (Bld) [Mass/Vol] 11.3 g/dL Critically low 14.0-18.0 [facility] Comment on above: Performed By: #### C BC ####[facility] Upwzxwwxle8379 [place] [address]Dr. Farhat Leal IG # 0.02 10e3/ul Normal 0.00-0.03 [facility] Comment on above: Performed By: #### C BC ####[facility] Ufvohoatgd7661 [place] [address]Dr. Farhat Leal IG % 0.3 % Normal 0.0-0.5 [facility] Comment on above: Performed By: #### C BC ####[facility] Azeqqoknez7940[address] [place], [place] [address]Dr. Farhat Elvis LYMPH # 3.1 103/ul Normal 1.2-3.8 [facility] Comment on above: Performed By: #### C BC ####[facility] Ewaroivsmt27[address] [place], [place] [address]Dr. Farhat Elvis Lymphocytes/100 WBC (Bld) 40.6 % Normal 20.5-60.0 [facility] Comment on above: Performed By: #### C BC ####[facility] Gktcfeausn6809 [place] [address]Dr. Farhat Leal MANUAL DIFF REQ NO Normal [facility] Comment on above: Performed By: #### C BC ####[facility] Tgvxwnezmc3021 [place] [address]Dr. Madelynlorri Elvis MCH (RBC) [Entitic mass] 30.6 pg Normal 25.9-34.0 [facility] Comment on above: Performed By: #### C BC ####[facility] Uieynuxeta0291 [place] [address]Dr. Farhat Leal MCHC (RBC) [Mass/Vol] 33.1 g/dL Normal 29.9-35.2 [facility] Comment on above: Performed By: #### C BC ####[facility] Zjmfxhoqqv0210 [place] [id number]. Farhat Leal MCV (RBC) [Entitic vol] 92.4 fL Normal 80.0-94.0 [facility] Comment on above: Performed By: #### C BC ####[facility] Pgulqvkjtx6187 [place] [id number]. Farhat Leal MONO # 0.8 103/ul Normal 0.3-0.8 [facility] Comment on above: Performed By: #### C BC ####[facility] Odpnoynmax6673 [place] [address]Dr. Farhat Leal Monocytes/100 WBC (Bld) 10.6 % Normal 1.7-12.0 [facility] Comment on above: Performed By: #### C BC ####[facility] Zxcwrgegcb30[address] [place], [place] [address]Dr. Farhat Leal NEUT # 3.2 103/ul Normal 1.4-6.5 [facility] Comment on above: Performed By: #### C BC ####[facility] [address]xq[address] [place], [place] [address]Dr. Farhat Leal Neutrophils/100 WBC (Bld) 42.1 % Critically low 43.0-75.0 [facility] Comment on above: Performed By: #### C BC ####[facility] [address] [place], [place] [address]Dr. Farhat Leal Platelet mean volume (Bld) [Entitic vol] 10.6 fL Normal 9.5-13.5 [facility] Comment on above: Performed By: #### C BC ####[facility] [address]xyq[address] [place], [place] [address]Dr. Farhat Leal PLT 187 103/ul Normal 150-450 [facility] Comment on above: Performed By: #### C BC ####[facility] Ddpdclqzbi5612 [place] [id number]. Farhat Elvis RBC 3.69 106/ul Critically low 4.70-6.10 [facility] Comment on above: Performed By: #### C BC ####[facility] Nblboqbkaj2456 [place] [address]Dr. Farhat Leal WBC 7.7 103/ul Normal 4.0-11.0 [facility] Comment on above: Performed By: #### C BC ####[facility] Ptbqfuzekz9204 [place] [address]Dr. Farhat Leal PROF 14(COMP METB)on 023 Albumin [Mass/Vol] 2.5 g/dL Critically low 3.4-5.0 [facility] Comment on above: Performed By: #### C MP ####[facility] Zedzbsgncz0014 [place] [address]Dr. Farhat Leal Albumin/Globulin [Mass ratio] 0.8 {ratio} Normal [facility] Comment on above: Performed By: #### C MP ####[facility] Clzttwocjk474[address] [place], [place] [address]Dr. Farhat Leal ALP [Catalytic activity/Vol] 60 U/L Normal 46-116 [facility] Comment on above: Performed By: #### C MP ####[facility] Iqmsnrubbv5245[address] [place], [place] [address]Dr. Farhat Leal ALT [Catalytic activity/Vol] 16 U/L Normal 16-63 [facility] Comment on above: Performed By: #### C MP ####[facility] Ccocvbgdql96[address] [place], [place] [address]Dr. Farhat Leal Anion gap [Moles/Vol] 9.1 mmol/L Normal [facility] Comment on above: Performed By: #### C MP ####[facility] Oxhpxdqigw8702 [place] [address]Dr. Farhat Leal AST [Catalytic activity/Vol] 31 U/L Normal 15-37 [facility] Comment on above: Performed By: #### C MP ####[facility] Bgulpnwdmd1451 [place] [address]Dr. Farhat Leal Bilirubin [Mass/Vol] 0.3 mg/dL Normal 0.2-1.0 [facility] Comment on above: Performed By: #### C MP ####[facility] Hoifwjaslh9926 [place] [id number]. Farhat Leal Calcium [Mass/Vol] 8.2 mg/dL Critically low 8.5-10.1 [facility] Comment on above: Performed By: #### C MP ####[facility] Bhfivhzayj0163 [place] [id number]. Farhat Leal Chloride [Moles/Vol] 106 mmol/L Normal 98-107 [facility] Comment on above: Performed By: #### C MP ####[facility] Lkngecrace0062 [place] [id number]. Farhat Leal CO2 [Moles/Vol] 27.0 mmol/L Normal 21.0-32.0 [facility] Comment on above: Performed By: #### C MP ####[facility] Asnojlaevu[address] [place], [place] [address]Dr. Farhat Elvis Creatinine [Mass/Vol] 1.51 mg/dL Critically high 0.70-1.30 [facility] Comment on above: Performed By: #### C MP ####[facility] Wtgketjopl[address] [place], [place] [address]Dr. Farhat Elvis EGFR-AF IRISH 55 mL/min/1.73m2 Critically low >=60 [facility] Comment on above: Performed By: #### C MP ####[facility] Qxtyeopzbq053[address] [place], [place] [address]Dr. Farhat Elvis EGFR-NON AF IRISH 45 mL/min/1.73m2 Critically low >=60 [facility] Comment on above: Performed By: #### C MP ####[facility] Wqpyckitbz1909 [place] [id number]. Farhat Elvis Globulin (S) [Mass/Vol] 3.2 g/dL Normal [facility] Comment on above: Performed By: #### C MP ####[facility] Vfgaidtmdt0643 [place] [address]Dr. Farhat Leal Glucose [Mass/Vol] 165 mg/dL Critically high 74-106 [facility] Comment on above: Performed By: #### C MP ####[facility] Iwfbmzaxew7986 [place] [address]Dr. Farhat Leal Potassium [Moles/Vol] 4.1 mmol/L Normal 3.5-5.1 [facility] Comment on above: Performed By: #### C MP ####[facility] Ijfjvlbjzn9584 [place] [address]Dr. Farhat Leal Protein [Mass/Vol] 5.7 g/dL Critically low 6.4-8.2 [facility] Comment on above: Performed By: #### C MP ####[facility] Kuboytjrin6[address] [place], [place] [address]Dr. Farhat Leal Sodium [Moles/Vol] 138 mmol/L Normal 136-145 [facility] Comment on above: Performed By: #### C MP ####[facility] Mhahxqypei7697[address] [place], [place] [address]Dr. Farhat Leal Urea nitrogen [Mass/Vol] 51.0 mg/dL Critically high 7.0-18.0 [facility] Comment on above: Performed By: #### C MP ####[facility] Tmlbuprrdl6039[address] [place], [place] [address]Dr. Farhat Leal Urea nitrogen/Creatinine [Mass ratio] 33.8 mg/mg Normal [facility] Comment on above: Performed By: #### C MP ####[facility] Mmxoczyesz125[address] [place], [place] [address]Dr. Farhat Leal FK506 (TACROLIMUS) WHOLE BLO ODon 06-15-2022 Tacrolimus (FK506), Blood 16.4 ng/mL Normal 2.0-20.0 [facility] Comment on above: Result Comment: Trou gh (immediately following transplant) 15.0 . Trough (steady state, 2 weeks or more after transplant): 3.0 - 8.0 . Performed by LC-MS/MS technology. Performed By: #### F K506T ####[facility] Oxdpjivcne886[address] [place], [place] [address]Dr. Farhat Elvis PROTIMEon 06-15-2022 INR Coag (PPP) [Relative time] 1.64 {INR} Normal [facility] Comment on above: Performed By: #### P T ####[facility] Qzhrzntktm9190[address] [place], [place] [address]Dr. Farhat Leal INR GUIDELINES SEE BELOW Normal [facility] Comment on above: Result Comment: MALINA RED INR: 2.0 - 3.0 CONDITIONS NOT LISTED BELOW 2.5 - 3.5 FOR PROSTHETIC HEART VALVE REPLACEMENT 2.5 - 3.5 RECURRENT THROMBOSIS Performed By: #### P T ####[facility] Wnafdioryd9[address] [place], [place] [address]Dr. Farhat Leal PT Coag (PPP) [Time] 16.9 s Critically high 9.0-11.6 [facility] Comment on above: Performed By: #### P T ####[facility] Nkxobitlno120[address] [place], [place] [address]Dr. Farhat Leal CBC AUTO DIFFon 06-12-2022 BASO # 0.0 103/ul Normal 0.0-0.1 [facility] Comment on above: Performed By: #### C BC ####[facility] Pwctyjmzau[address] [place], [place] [address]Dr. Farhat Leal Basophils/100 WBC (Bld) 0.4 % Normal 0.2-2.0 [facility] Comment on above: Performed By: #### C BC ####[facility] Ixacgipwhb9[address] [place], [place] [address]Dr. aFrhat Leal EO # 0.4 103/ul Normal 0.0-0.7 [facility] Comment on above: Performed By: #### C BC ####[facility] Rctaiyhhvu029[address] [place], [place] [address]Dr. Farhat Leal Eosinophils/100 WBC (Bld) 5.4 % Normal 0.9-7.0 [facility] Comment on above: Performed By: #### C BC ####[facility] Bqhhvyslqw0325[address] [place], [place] [address]Dr. Farhat Leal Erythrocyte distribution width (RBC) [Ratio] 14.7 % Normal 11.0-15.0 [facility] Comment on above: Performed By: #### C BC ####[facility] Lsqwupkdoq8877 [place] [address]Dr. Farhat Leal Hematocrit (Bld) [Volume fraction] 34.8 % Critically low 42.0-54.0 [facility] Comment on above: Performed By: #### C BC ####[facility] Wkafozumrc1886 [place] [address]Dr. Madeylnlorri Leal Hemoglobin (Bld) [Mass/Vol] 11.7 g/dL Critically low 14.0-18.0 [facility] Comment on above: Performed By: #### C BC ####[facility] Vbnkkelqem16[address] [place], [place] [address]Dr. Madelynlorri Leal IG # 0.02 10e3/ul Normal 0.00-0.03 [facility] Comment on above: Performed By: #### C BC ####[facility] Iofudbcsjv958[address] [place], [place] [address]Dr. Farhat Leal IG % 0.3 % Normal 0.0-0.5 [facility] Comment on above: Performed By: #### C BC ####[facility] Qupwuioulb0[address] [place], [place] [address]Dr. Madeylnlorri Leal LYMPH # 2.5 103/ul Normal 1.2-3.8 [facility] Comment on above: Performed By: #### C BC ####[facility] Jqcbhqvjjr9[address] [place], [place] [address]Dr. Farhat Leal Lymphocytes/100 WBC (Bld) 36.8 % Normal 20.5-60.0 [facility] Comment on above: Performed By: #### C BC ####[facility] Pnwnzsuusn70[address] [place], [place] [address]Dr. Farhat Leal MANUAL DIFF REQ NO Normal [facility] Comment on above: Performed By: #### C BC ####[facility] Tgsqedrzkc[address] [place], [place] [address]Dr. Farhat Leal MCH (RBC) [Entitic mass] 30.9 pg Normal 25.9-34.0 [facility] Comment on above: Performed By: #### C BC ####[facility] Rtznkjhjsl3853 [place] [id number]. Farhat Elvis MCHC (RBC) [Mass/Vol] 33.6 g/dL Normal 29.9-35.2 [facility] Comment on above: Performed By: #### C BC ####[facility] Dohsffceyu6040 [place] [id number]. Farhat Leal MCV (RBC) [Entitic vol] 91.8 fL Normal 80.0-94.0 [facility] Comment on above: Performed By: #### C BC ####[facility] Raxomwbjjl0623 [place] [id number]. Farhat Leal MONO # 0.8 103/ul Normal 0.3-0.8 [facility] Comment on above: Performed By: #### C BC ####[facility] Ipqwcdjvsp[address] [place], [place] [address]Dr. Farhat Leal Monocytes/100 WBC (Bld) 11.9 % Normal 1.7-12.0 [facility] Comment on above: Performed By: #### C BC ####[facility] Ijjijkztbe53[address] [place], [place] [address]Dr. Farhat Leal NEUT # 3.1 103/ul Normal 1.4-6.5 [facility] Comment on above: Performed By: #### C BC ####[facility] Hupvuppgrx38[address] [place], [place] [address]Dr. Farhat Leal Neutrophils/100 WBC (Bld) 45.2 % Normal 43.0-75.0 [facility] Comment on above: Performed By: #### C BC ####[facility] Xnhfxilztt026[address] [place], [place] [address]Dr. Farhat Leal Platelet mean volume (Bld) [Entitic vol] 10.5 fL Normal 9.5-13.5 [facility] Comment on above: Performed By: #### C BC ####[facility] [address] [place], [place] [address]Dr. Farhat Leal PLT 175 103/ul Normal 150-450 [facility] Comment on above: Performed By: #### C BC ####[facility] Byzknsazzf7974 [place] [id number]. Farhat Leal RBC 3.79 106/ul Critically low 4.70-6.10 [facility] Comment on above: Performed By: #### C BC ####[facility] Yoxdnaxgdz2878 [place] [id number]. Farhat Leal WBC 6.8 103/ul Normal 4.0-11.0 [facility] Comment on above: Performed By: #### C BC ####[facility] Kxpbctcnnf8525 [place] [address]Dr. Farhat Leal MAGNESIUMon 06-12-2022 Magnesium [Mass/Vol] 1.6 mg/dL Critically low 1.8-2.4 [facility] Comment on above: Performed By: #### C MP, MG, PHOS ####[facility] Lsdkypgang3498 [place] [address]Dr. Farhat Leal PHOSPHORUSon 06-12-2022 Phosphate [Mass/Vol] 3.8 mg/dL Normal 2.6-4.7 [facility] Comment on above: Performed By: #### C MP, MG, PHOS ####[facility] Xkqaurdscb8472 [place] [address]Dr. Farhat Leal PROF 14(COMP METB)on 023 Albumin [Mass/Vol] 2.6 g/dL Critically low 3.4-5.0 [facility] Comment on above: Performed By: #### C MP, MG, PHOS ####[facility] Eutctothpl3245 [place] [address]Dr. Farhat Leal Albumin/Globulin [Mass ratio] 0.8 {ratio} Normal [facility] Comment on above: Performed By: #### C MP, MG, PHOS ####[facility] Tmzrmolysd7129 [place] [address]Dr. Farhat Leal ALP [Catalytic activity/Vol] 64 U/L Normal 46-116 [facility] Comment on above: Performed By: #### C MP, MG, PHOS ####[facility] Qscrsqmtgz3449 [place] [address]Dr. Farhat Leal ALT [Catalytic activity/Vol] 18 U/L Normal 16-63 [facility] Comment on above: Performed By: #### C MP, MG, PHOS ####[facility] Bueckgzqls3135 [place] [address]Dr. Farhat Leal Anion gap [Moles/Vol] 12.9 mmol/L Normal Th e [facility] Comment on above: Performed By: #### C MP, MG, PHOS ####[facility] Lbahjnrqmb25[address] [place], [place] [address]Dr. Farhat Leal AST [Catalytic activity/Vol] 18 U/L Normal 15-37 [facility] Comment on above: Performed By: #### C MP, MG, PHOS ####[facility] Bmjqyryhbc604[address] [place], [place] [address]Dr. Farhat Leal Bilirubin [Mass/Vol] 0.4 mg/dL Normal 0.2-1.0 The [facility] Comment on above: Performed By: #### C MP, MG, PHOS ####[facility] Bacqtbadtl4025[address] [place], [place] [address]Dr. Farhat Leal Calcium [Mass/Vol] 8.7 mg/dL Normal 8.5-10.1 [facility] Comment on above: Performed By: #### C MP, MG, PHOS ####[facility] Nxpsqgjari187[address] [place], [place] [address]Dr. Farhat Leal Chloride [Moles/Vol] 105 mmol/L Normal 98-107 The [facility] Comment on above: Performed By: #### C MP, MG, PHOS ####[facility] Ksqgxztzsb66[address] [place], [place] [address]Dr. Farhat Leal CO2 [Moles/Vol] 27.9 mmol/L Normal 21.0-32.0 The [facility] Comment on above: Performed By: #### C MP, MG, PHOS ####[facility] Drmluywnri179[address] [place], [place] [address]Dr. Farhat Leal Creatinine [Mass/Vol] 1.53 mg/dL Critically high 0.70-1.30 [facility] Comment on above: Performed By: #### C MP, MG, PHOS ####[facility] [address]kbyn[address] [place] [address]Dr. Madelynlan Leal EGFR-AF IRISH 54 mL/min/1.73m2 Critically low >=60 [facility] Comment on above: Performed By: #### C MP, MG, PHOS ####[facility] Fwkyzzwkpx2442 [place] [address]Dr. Madelynlan Leal EGFR-NON AF IRISH 44 mL/min/1.73m2 Critically low >=60 [facility] Comment on above: Performed By: #### C MP, MG, PHOS ####[facility] Fhfzvbamxf965[address] [place], [place] [address]Dr. Fahrat Leal Globulin (S) [Mass/Vol] 3.4 g/dL Normal [facility] Comment on above: Performed By: #### C MP, MG, PHOS ####[facility] Plvwveozxd599[address] [place], [place] [address]Dr. Farhat Leal Glucose [Mass/Vol] 179 mg/dL Critically high 74-106 [facility] Comment on above: Performed By: #### C MP, MG, PHOS ####[facility] Fyaryhejcf1100[address] [place], [place] [address]Dr. Farhat Leal Potassium [Moles/Vol] 3.8 mmol/L Normal 3.5-5.1 [facility] Comment on above: Performed By: #### C MP, MG, PHOS ####[facility] Juikwwuaad2835[address] [place], [place] [address]Dr. Madelynlan Leal Protein [Mass/Vol] 6.0 g/dL Critically low 6.4-8.2 Th [facility] Comment on above: Performed By: #### C MP, MG, PHOS ####[facility] Yqvwrhrias213[address] [place], [place] [address]Dr. Farhat Leal Sodium [Moles/Vol] 142 mmol/L Normal 136-145 [facility] Comment on above: Performed By: #### C MP, MG, PHOS ####[facility] Lxfafrrogg79488[address] [place], [place] [address]Dr. Madelynlorri Leal Urea nitrogen [Mass/Vol] 56.0 mg/dL Critically high 7.0-18.0 The [facility] Comment on above: Performed By: #### C MG CARA, PHOS ####[facility] Jrfhllbzdd348287 [address] [place], [place] [address]Dr. Farhat Leal Urea nitrogen/Creatinine [Mass ratio] 36.6 mg/mg Normal The [facility] Comment on above: Performed By: #### C MG CARA, PHOS ####[facility] Youugvqgxa5036[address] [place], [place] [address]Dr. Madelynlorri Leal FK506 (TACROLIMUS) WHOLE BLO ODon 06-08-2022 Tacrolimus (FK506), Blood 13.2 ng/mL Normal 2.0-20.0 The [facility] Comment on above: Result Comment: Trou gh (immediately following transplant) 15.0 . Trough (steady state, 2 weeks or more after transplant): 3.0 - 8.0 . Performed by LC-MS/MS technology. Performed By: #### F K506T ####[facility] Xqwrhdxlvd923[address] [place], [place] [address]Dr. Madelynlorri Leal CBC AUTO DIFFon 06-05-2022 BASO # 0.1 103/ul Normal 0.0-0.1 The [facility] Comment on above: Performed By: #### C BC ####[facility] Wmdcyvczzj1236[address] [place], [place] [address]Dr. Farhat Leal Basophils/100 WBC (Bld) 0.8 % Normal 0.2-2.0 The [facility] Comment on above: Performed By: #### C BC ####[facility] Ouydfmwtxl925[address] [place], [place] [address]Dr. Farhat Leal EO # 0.3 103/ul Normal 0.0-0.7 The [facility] Comment on above: Performed By: #### C BC ####[facility] Enygipfjzh995[address] [place], [place] [address]Dr. Farhat Leal Eosinophils/100 WBC (Bld) 4.7 % Normal 0.9-7.0 The [facility] Comment on above: Performed By: #### C BC ####[facility] Obrbcdludf8440 [place] [address]Dr. Farhat Leal Erythrocyte distribution width (RBC) [Ratio] 15.1 % Critically high 11.0-15.0 [facility] Comment on above: Performed By: #### C BC ####[facility] Lnjamlzuxz1936[address] [place], [place] [address]Dr. Farhat Leal Hematocrit (Bld) [Volume fraction] 35.5 % Critically low 42.0-54.0 [facility] Comment on above: Performed By: #### C BC ####[facility] Viuxigfrjr0487[address] [place], [place] [address]Dr. Farhat Leal Hemoglobin (Bld) [Mass/Vol] 11.7 g/dL Critically low 14.0-18.0 [facility] Comment on above: Performed By: #### C BC ####[facility] Dbzvojzvui584987 [address] [place], [place] [address]Dr. Farhat Leal IG # 0.01 10e3/ul Normal 0.00-0.03 [facility] Comment on above: Performed By: #### C BC ####[facility] Epveeikrgg404[address] [place], [place] [address]Dr. Farhat Leal IG % 0.2 % Normal 0.0-0.5 [facility] Comment on above: Performed By: #### C BC ####[facility] Btrlfrross9240[address] [place], [place] [address]Dr. Farhat Leal LYMPH # 2.1 103/ul Normal 1.2-3.8 The [facility] Comment on above: Performed By: #### C BC ####[facility] Tfvcwtleas0428[address] [place], [place] [address]Dr. Farhat Leal Lymphocytes/100 WBC (Bld) 34.5 % Normal 20.5-60.0 [facility] Comment on above: Performed By: #### C BC ####[facility] Vzqfrjiyni615[address] [place], [place] [address]Dr. Farhat Leal MANUAL DIFF REQ NO Normal [facility] Comment on above: Performed By: #### C BC ####[facility] Qentgntqwr2881 [place] [id number]. Farhat Elvis MCH (RBC) [Entitic mass] 30.6 pg Normal 25.9-34.0 The [facility] Comment on above: Performed By: #### C BC ####[facility] Nnahvrebpw7317 [place] [id number]. Madelynlorri Leal MCHC (RBC) [Mass/Vol] 33.0 g/dL Normal 29.9-35.2 The [facility] Comment on above: Performed By: #### C BC ####[facility] Inbgkpzuop3531 [place] [address]Dr. Farhat Leal MCV (RBC) [Entitic vol] 92.9 fL Normal 80.0-94.0 The [facility] Comment on above: Performed By: #### C BC ####[facility] Vhzmpzajay712[address] [place], [place] [address]Dr. Farhat Leal MONO # 0.7 103/ul Normal 0.3-0.8 The [facility] Comment on above: Performed By: #### C BC ####[facility] Xrsnadfeux994[address] [place], [place] [address]Dr. Farhat Leal Monocytes/100 WBC (Bld) 11.4 % Normal 1.7-12.0 The [facility] Comment on above: Performed By: #### C BC ####[facility] Lehrgdkcfw3470[address] [place], [place] [address]Dr. Farhat Leal NEUT # 2.9 103/ul Normal 1.4-6.5 The [facility] Comment on above: Performed By: #### C BC ####[facility] Czmlouiopl0418[address] [place], [place] [address]Dr. Farhat Leal Neutrophils/100 WBC (Bld) 48.4 % Normal 43.0-75.0 The [facility] Comment on above: Performed By: #### C BC ####[facility] Zppbyumqaa027[address] [place], [place] [address]Dr. Farhat Leal Platelet mean volume (Bld) [Entitic vol] 10.7 fL Normal 9.5-13.5 The [facility] Comment on above: Performed By: #### C BC ####[facility] Ekuhqjrnvb0863 [place] [address]Dr. Farhat Leal PLT 185 103/ul Normal 150-450 The [facility] Comment on above: Performed By: #### C BC ####[facility] Ajassaydxm6248 [place] [id number]. Farhat Leal RBC 3.82 106/ul Critically low 4.70-6.10 The [facility] Comment on above: Performed By: #### C BC ####[facility] Tvnrrgxaff7307 [place] [address]Dr. Farhat Leal WBC 6.0 103/ul Normal 4.0-11.0 The [facility] Comment on above: Performed By: #### C BC ####[facility] Ohttqacvdk5364[address] [place], [place] [address]Dr. lorri Leal MAGNESIUMon 06-05-2022 Magnesium [Mass/Vol] 1.9 mg/dL Normal 1.8-2.4 The [facility] Comment on above: Performed By: #### P HOS, MG ####[facility] Aurblltuqb8529[address] [place], [place] [address]Dr. Farhat Leal PHOSPHORUSon 06-05-2022 Phosphate [Mass/Vol] 4.4 mg/dL Normal 2.6-4.7 The [facility] Comment on above: Performed By: #### P HOS, MG ####[facility] Mgmqtmmpad3139[address] [place], [place] [address]Dr. Farhat Leal PROTIMEon 06-05-2022 INR Coag (PPP) [Relative time] 2.16 {INR} Normal The [facility] Comment on above: Performed By: #### P T ####[facility] Sokvtycpsd338[address] [place], [place] [address]Dr. Farhat Leal INR GUIDELINES SEE BELOW Normal The [facility] Comment on above: Result Comment: MALINA RED INR: 2.0 - 3.0 CONDITIONS NOT LISTED BELOW 2.5 - 3.5 FOR PROSTHETIC HEART VALVE REPLACEMENT 2.5 - 3.5 RECURRENT THROMBOSIS Performed By: #### P T ####[facility] Ckcvbqewpk7195[address] [place], [place] [address]Dr. Farhat Leal PT Coag (PPP) [Time] 21.9 s Critically high 9.0-11.6 [facility] Comment on above: Performed By: #### P T ####[facility] Fmsigrupbi801[address] [place], [place] [address]Dr. Farhat Leal FK506 (TACROLIMUS) WHOLE BLO ODon 06-01-2022 Tacrolimus (FK506), Blood 26.4 ng/mL Invalid Interpretation Code 2.0-20.0 The [facility] Comment on above: Result Comment: Trou gh (immediately following transplant) 15.0 . Trough (steady state, 2 weeks or more after transplant): 3.0 - 8.0 . Performed by LC-MS/MS technology.Patient drug level exceeds published reference range. Evaluateclinically for signs of potential toxicity. Performed By: #### F K506T ####[facility] Sdhatnwiyq2779[address] [place], [place] [address]Dr. Farhat Leal CBC AUTO DIFFon 05-29-2022 BASO # 0.0 103/ul Normal 0.0-0.1 The [facility] Comment on above: Performed By: #### C BC ####[facility] Thrmycyshz927[address] [place], [place] [address]Dr. Farhat Leal Basophils/100 WBC (Bld) 0.6 % Normal 0.2-2.0 The [facility] Comment on above: Performed By: #### C BC ####[facility] Yywnjovvjw67[address] [place], [place] [address]Dr. Farhat Leal EO # 0.3 103/ul Normal 0.0-0.7 The [facility] Comment on above: Performed By: #### C BC ####[facility] Jvuscqahav8488[address] [place], [place] [address]Dr. Farhat Leal Eosinophils/100 WBC (Bld) 4.7 % Normal 0.9-7.0 The [facility] Comment on above: Performed By: #### C BC ####[facility] Xdrcqufngw449[address] [place], [place] [address]Dr. Farhat Leal Erythrocyte distribution width (RBC) [Ratio] 15.3 % Critically high 11.0-15.0 [facility] Comment on above: Performed By: #### C BC ####[facility] Ritnfhqbod2927 [place] [address]Dr. Farhat Leal Hematocrit (Bld) [Volume fraction] 36.6 % Critically low 42.0-54.0 [facility] Comment on above: Performed By: #### C BC ####[facility] Xpunuoxxlm2369[address] [place], [place] [address]Dr. Farhat Leal Hemoglobin (Bld) [Mass/Vol] 12.3 g/dL Critically low 14.0-18.0 [facility] Comment on above: Performed By: #### C BC ####[facility] Knrozufcyn5359[address] [place], [place] [address]Dr. Farhat Leal IG # 0.02 10e3/ul Normal 0.00-0.03 [facility] Comment on above: Performed By: #### C BC ####[facility] Nyytcidnte366387 [address] [place], [place] [address]Dr. Farhat Leal IG % 0.3 % Normal 0.0-0.5 [facility] Comment on above: Performed By: #### C BC ####[facility] Hkjhfrxolj8932[address] [place], [place] [address]DrSkylar Leal LYMPH # 2.8 103/ul Normal 1.2-3.8 [facility] Comment on above: Performed By: #### C BC ####[facility] Xggclpuavp6447[address] [place], [place] [address]DrSkylar Leal Lymphocytes/100 WBC (Bld) 44.4 % Normal 20.5-60.0 The [facility] Comment on above: Performed By: #### C BC ####[facility] Hujyelqnzv857[address] [place], [place] [address]DrSkylar Leal MANUAL DIFF REQ NO Normal The [facility] Comment on above: Performed By: #### C BC ####[facility] Jmskqanlle945[address] [place], [place] [address]DrSkylar Leal MCH (RBC) [Entitic mass] 30.4 pg Normal 25.9-34.0 The [facility] Comment on above: Performed By: #### C BC ####[facility] Rlcezlvues2545 [place] [address]DrSkylar Leal MCHC (RBC) [Mass/Vol] 33.6 g/dL Normal 29.9-35.2 The [facility] Comment on above: Performed By: #### C BC ####[facility] Xkdyvxztol007[address] [place], [place] [address]DrSkylar Leal MCV (RBC) [Entitic vol] 90.4 fL Normal 80.0-94.0 The [facility] Comment on above: Performed By: #### C BC ####[facility] Ouaieqqcpl7779[address] [place], [place] [address]DrSkylar Leal MONO # 0.7 103/ul Normal 0.3-0.8 The [facility] Comment on above: Performed By: #### C BC ####[facility] Ufxsagnvqb1511[address] [place], [place] [address]Dr. Farhat Leal Monocytes/100 WBC (Bld) 10.7 % Normal 1.7-12.0 The [facility] Comment on above: Performed By: #### C BC ####[facility] Qbqnakjesl0009[address] [place], [place] [address]DrSkylar Leal NEUT # 2.5 103/ul Normal 1.4-6.5 The [facility] Comment on above: Performed By: #### C BC ####[facility] Fovedryyla007[address] [place], [place] [address]DrSkylar Leal Neutrophils/100 WBC (Bld) 39.3 % Critically low 43.0-75.0 The [facility] Comment on above: Performed By: #### C BC ####[facility] Khyffkawuq4801[address] [place], [place] [address]DrSkylar Leal Platelet mean volume (Bld) [Entitic vol] 10.5 fL Normal 9.5-13.5 The [facility] Comment on above: Performed By: #### C BC ####[facility] Jzldkeuxwg8987[address] [place], [place] [address]DrSkylar Leal PLT 190 103/ul Normal 150-450 [facility] Comment on above: Performed By: #### C BC ####[facility] Xbjmhqwbwr7309 [place] [address]Dr. Madelynlorri Elvis RBC 4.05 106/ul Critically low 4.70-6.10 [facility] Comment on above: Performed By: #### C BC ####[facility] Yxwsuewfcb3609 [place] [address]Dr. Farhat Leal WBC 6.4 103/ul Normal 4.0-11.0 [facility] Comment on above: Performed By: #### C BC ####[facility] Kqktgmnrmb4688 [place] [address]DrSkylar Leal PROF 14(COMP METB)on 023 Albumin [Mass/Vol] 2.5 g/dL Critically low 3.4-5.0 [facility] Comment on above: Performed By: #### C MP ####[facility] Gchticumgl234[address] [place], [place] [address]Dr. Farhat Leal Albumin/Globulin [Mass ratio] 0.8 {ratio} Normal [facility] Comment on above: Performed By: #### C MP ####[facility] Pfpqgqigau175[address] [place], [place] [address]Dr. Farhat Leal ALP [Catalytic activity/Vol] 61 U/L Normal 46-116 [facility] Comment on above: Performed By: #### C MP ####[facility] Bmhumhckxt9258 [place] [address]Dr. Farhat Leal ALT [Catalytic activity/Vol] 16 U/L Normal 16-63 [facility] Comment on above: Performed By: #### C MP ####[facility] Qmxfbslumd868[address] [place], [place] [address]Dr. Farhat Leal Anion gap [Moles/Vol] 12.3 mmol/L Normal [facility] Comment on above: Performed By: #### C MP ####[facility] Axgraslmjd9300[address] [place], [place] [address]Dr. Farhat Leal AST [Catalytic activity/Vol] 18 U/L Normal 15-37 [facility] Comment on above: Performed By: #### C MP ####[facility] Zfzoqohcbd9925 [place] [address]Dr. Madelynlorri Elvis Bilirubin [Mass/Vol] 0.5 mg/dL Normal 0.2-1.0 [facility] Comment on above: Performed By: #### C MP ####[facility] Tkoqpwyvri9401[address] [place], [place] [address]Dr. aFrhat Leal Calcium [Mass/Vol] 8.6 mg/dL Normal 8.5-10.1 [facility] Comment on above: Performed By: #### C MP ####[facility] Cqglpnhaao51[address] [place], [place] [address]Dr. Farhat Leal Chloride [Moles/Vol] 105 mmol/L Normal 98-107 [facility] Comment on above: Performed By: #### C MP ####[facility] Iuaindubxo5095[address] [place], [place] [address]Dr. Farhat Leal CO2 [Moles/Vol] 28.6 mmol/L Normal 21.0-32.0 The [facility] Comment on above: Performed By: #### C MP ####[facility] Hurzgyuaav2000[address] [place], [place] [address]Dr. Farhat Leal Creatinine [Mass/Vol] 1.47 mg/dL Critically high 0.70-1.30 [facility] Comment on above: Performed By: #### C MP ####[facility] Owcrcadpux4816[address] [place], [place] [address]Dr. Farhat Leal EGFR-AF IRISH 56 mL/min/1.73m2 Critically low >=60 [facility] Comment on above: Performed By: #### C MP ####[facility] Zcianivayi7605[address] [place], [place] [address]Dr. Farhat Leal EGFR-NON AF IRISH 46 mL/min/1.73m2 Critically low >=60 [facility] Comment on above: Performed By: #### C MP ####[facility] Mvhsepausn697[address] [place], [place] [address]Dr. Farhat Leal Globulin (S) [Mass/Vol] 3.3 g/dL Normal [facility] Comment on above: Performed By: #### C MP ####[facility] Vwcnienlyv6470 [place] [address]Dr. Farhat Leal Glucose [Mass/Vol] 164 mg/dL Critically high 74-106 [facility] Comment on above: Performed By: #### C MP ####[facility] Kljctodpyf0418 [place] [address]Dr. Farhat Leal Potassium [Moles/Vol] 3.9 mmol/L Normal 3.5-5.1 [facility] Comment on above: Performed By: #### C MP ####[facility] Rnetwfyhps106[address] [place], [place] [address]Dr. Farhat Leal Protein [Mass/Vol] 5.8 g/dL Critically low 6.4-8.2 Th [facility] Comment on above: Performed By: #### C MP ####[facility] Ryyzhshqnd675[address] [place], [place] [address]Dr. Farhat Leal Sodium [Moles/Vol] 142 mmol/L Normal 136-145 [facility] Comment on above: Performed By: #### C MP ####[facility] Sjnljbhicb5270[address] [place], [place] [address]Dr. Farhat Leal Urea nitrogen [Mass/Vol] 53.0 mg/dL Critically high 7.0-18.0 [facility] Comment on above: Performed By: #### C MP ####[facility] Fqrkfwfpfw470[address] [place], [place] [address]Dr. Farhat Leal Urea nitrogen/Creatinine [Mass ratio] 36.1 mg/mg Normal [facility] Comment on above: Performed By: #### C MP ####[facility] Mhmtgwsvcb7585[address] [place], [place] [address]Dr. Farhat Leal PROTIMEon 05-29-2022 INR Coag (PPP) [Relative time] 2.41 {INR} Normal [facility] Comment on above: Performed By: #### P T ####[facility] Smwxrvmdma8407[address] [place], [place] [address]Dr. Farhat Leal INR GUIDELINES SEE BELOW Normal [facility] Comment on above: Result Comment: MALINA RED INR: 2.0 - 3.0 CONDITIONS NOT LISTED BELOW 2.5 - 3.5 FOR PROSTHETIC HEART VALVE REPLACEMENT 2.5 - 3.5 RECURRENT THROMBOSIS Performed By: #### P T ####[facility] Kjarmsigpj739[address] [place], [place] [address]DrSkylar Leal PT Coag (PPP) [Time] 24.3 s Critically high 9.0-11.6 [facility] Comment on above: Performed By: #### P T ####[facility] Wlfavfnhen9475[address] [place], [place] [address]DrSkylar Leal FK506 (TACROLIMUS) WHOLE BLO ODon 05-25-2022 Tacrolimus (FK506), Blood 5.1 ng/mL Normal 2.0-20.0 [facility] Comment on above: Result Comment: Trou gh (immediately following transplant) 15.0 . Trough (steady state, 2 weeks or more after transplant): 3.0 - 8.0 . Performed by LC-MS/MS technology. Performed By: #### F K506T ####[facility] Aubmufuyrf875[address] [place], [place] [address]Dr. Farhat Leal CBC AUTO DIFFon 05-22-2022 BASO # 0.0 103/ul Normal 0.0-0.1 [facility] Comment on above: Performed By: #### C BC ####[facility] Xtvnabsbvh925[address] [place], [place] [address]DrSkylar Leal Basophils/100 WBC (Bld) 0.5 % Normal 0.2-2.0 [facility] Comment on above: Performed By: #### C BC ####[facility] Ueotoreuzf459[address] [place], [place] [address]DrSkylar Leal EO # 0.2 103/ul Normal 0.0-0.7 [facility] Comment on above: Performed By: #### C BC ####[facility] Tbioxzxwoq3539[address] [place], [place] [address]DrSkylar Leal Eosinophils/100 WBC (Bld) 4.0 % Normal 0.9-7.0 [facility] Comment on above: Performed By: #### C BC ####[facility] Jmuoynfdrk7673 [place] [address]Dr. Farhat Leal Erythrocyte distribution width (RBC) [Ratio] 15.5 % Critically high 11.0-15.0 [facility] Comment on above: Performed By: #### C BC ####[facility] Xbeesorirf7569 [place] [address]Dr. Farhat Leal Hematocrit (Bld) [Volume fraction] 34.1 % Critically low 42.0-54.0 [facility] Comment on above: Performed By: #### C BC ####[facility] Vpjkqiyrxu475[address] [place], [place] [address]Dr. Farhat Leal Hemoglobin (Bld) [Mass/Vol] 11.3 g/dL Critically low 14.0-18.0 [facility] Comment on above: Performed By: #### C BC ####[facility] Lkstizitcw3510[address] [place], [place] [address]Dr. Farhat Leal IG # 0.03 10e3/ul Normal 0.00-0.03 [facility] Comment on above: Performed By: #### C BC ####[facility] Gvfgouvjue82[address] [place], [place] [address]DrSkylar Farhat Leal IG % 0.5 % Normal 0.0-0.5 [facility] Comment on above: Performed By: #### C BC ####[facility] Njlrprlzcw78[address] [place], [place] [address]DrSkylar Farhat Leal LYMPH # 2.1 103/ul Normal 1.2-3.8 [facility] Comment on above: Performed By: #### C BC ####[facility] Sgeebbdmtc[address] [place], [place] [address]DrSkylar Farhat Leal Lymphocytes/100 WBC (Bld) 34.6 % Normal 20.5-60.0 [facility] Comment on above: Performed By: #### C BC ####[facility] Ikprdmvamf5949[address] [place], [place] [address]DrSkylar Farhat Leal MANUAL DIFF REQ NO Normal [facility] Comment on above: Performed By: #### C BC ####[facility] Laomgzryow0222 [place] [id number]. Farhat Leal MCH (RBC) [Entitic mass] 30.3 pg Normal 25.9-34.0 [facility] Comment on above: Performed By: #### C BC ####[facility] Bqeoqtaafh8670 [place] [address]Dr. Farhat Leal MCHC (RBC) [Mass/Vol] 33.1 g/dL Normal 29.9-35.2 [facility] Comment on above: Performed By: #### C BC ####[facility] Ocshzctssr7017 [place] [address]Dr. Madelynlorri Leal MCV (RBC) [Entitic vol] 91.4 fL Normal 80.0-94.0 [facility] Comment on above: Performed By: #### C BC ####[facility] Muppdvkwrv83[address] [place], [place] [address]Dr. Farhat Leal MONO # 0.7 103/ul Normal 0.3-0.8 [facility] Comment on above: Performed By: #### C BC ####[facility] Bsjrqprpgb63[address] [place], [place] [address]Dr. Madelynlorri Leal Monocytes/100 WBC (Bld) 11.6 % Normal 1.7-12.0 [facility] [facility] Comment on above: Performed By: #### C BC ####[facility] Nbsrowhqmk74[address] [place], [place] [address]Dr. Farhat Elvis NEUT # 2.9 103/ul Normal 1.4-6.5 [facility] Comment on above: Performed By: #### C BC ####[facility] Rswdzoefts[address] [place], [place] [address]DrSkylar Leal Neutrophils/100 WBC (Bld) 48.8 % Normal 43.0-75.0 [facility] Comment on above: Performed By: #### C BC ####[facility] Zyxiucobnp8[address] [place], [place] [address]DrSkylar Leal Platelet mean volume (Bld) [Entitic vol] 10.9 fL Normal 9.5-13.5 [facility] Comment on above: Performed By: #### C BC ####[facility] Yekwvjhboe0186 [place] [id number]. Farhat Leal PLT 186 103/ul Normal 150-450 [facility] Comment on above: Performed By: #### C BC ####[facility] Wawtilauhv2237 [place] [id number]. Farhat Leal RBC 3.73 106/ul Critically low 4.70-6.10 [facility] Comment on above: Performed By: #### C BC ####[facility] Dplhhvxdnh1503 [place] [id number]. Farhat Leal WBC 6.0 103/ul Normal 4.0-11.0 [facility] Comment on above: Performed By: #### C BC ####[facility] Ilzaxozsxc8403 [place] [address]Dr. Farhat Leal PROF 14(COMP METB)on 023 Albumin [Mass/Vol] 2.7 g/dL Critically low 3.4-5.0 [facility] Comment on above: Performed By: #### C MP ####[facility] Llmjussbgs8042 [place] [address]Dr. Farhat Leal Albumin/Globulin [Mass ratio] 0.8 {ratio} Normal [facility] Comment on above: Performed By: #### C MP ####[facility] Pufbinfeah9259 [place] [address]Dr. Farhat Leal ALP [Catalytic activity/Vol] 60 U/L Normal 46-116 [facility] Comment on above: Performed By: #### C MP ####[facility] Hcywttghlt6062 [place] [id number]. Farhat Leal ALT [Catalytic activity/Vol] 17 U/L Normal 16-63 [facility] Comment on above: Performed By: #### C MP ####[facility] Pagcykecfl7032 [place] [address]Dr. Farhat Leal Anion gap [Moles/Vol] 9.6 mmol/L Normal [facility] Comment on above: Performed By: #### C MP ####[facility] Tcquiitjcv2462 [place] [id number]. Farhat Leal AST [Catalytic activity/Vol] 14 U/L Critically low 15-37 [facility] Comment on above: Performed By: #### C MP ####[facility] Xheodekbie9585 [place] [id number]. Farhat Leal Bilirubin [Mass/Vol] 0.5 mg/dL Normal 0.2-1.0 [facility] Comment on above: Performed By: #### C MP ####[facility] Ncudaubevs3737 [place] [address]Dr. Farhat Leal Calcium [Mass/Vol] 8.4 mg/dL Critically low 8.5-10.1 [facility] Comment on above: Performed By: #### C MP ####[facility] Psyfsdhskx1301[address] [place], [place] [address]Dr. Farhat Leal Chloride [Moles/Vol] 104 mmol/L Normal 98-107 [facility] Comment on above: Performed By: #### C MP ####[facility] Obhlefswby5[address] [place], [place] [address]Dr. Farhat Leal CO2 [Moles/Vol] 27.2 mmol/L Normal 21.0-32.0 The [facility] Comment on above: Performed By: #### C MP ####[facility] Euyzqsngvc0130[address] [place], [place] [address]Dr. Farhat Leal Creatinine [Mass/Vol] 1.24 mg/dL Normal 0.70-1.30 [facility] Comment on above: Performed By: #### C MP ####[facility] Dhsgpjolxw6887 [place] [id number]. Farhat Elvis EGFR-AF IRISH >60 Normal >=60 [facility] Comment on above: Performed By: #### C MP ####[facility] Azafxwbger5528 [place] [phone]. Farhat Elvis EGFR-NON AF IRISH 57 mL/min/1.73m2 Critically low >=60 [facility] Comment on above: Performed By: #### C MP ####[facility] Hskfxekxvj5506 [place] [address]Dr. Farhat Leal Globulin (S) [Mass/Vol] 3.3 g/dL Normal [facility] Comment on above: Performed By: #### C MP ####[facility] Dtsqftmahx1021 [place] [address]Dr. Farhat Leal Glucose [Mass/Vol] 275 mg/dL Critically high 74-106 [facility] Comment on above: Performed By: #### C MP ####[facility] Zroivbedfo9833 [place] [address]Dr. Farhat Leal Potassium [Moles/Vol] 3.8 mmol/L Normal 3.5-5.1 [facility] Comment on above: Performed By: #### C MP ####[facility] Pmwgvzrzts9550[address] [place], [place] [address]Dr. Farhat Leal Protein [Mass/Vol] 6.0 g/dL Critically low 6.4-8.2 [facility] Comment on above: Performed By: #### C MP ####[facility] Bmyijtzopa4760[address] [place], [place] [address]Dr. Farhat Leal Sodium [Moles/Vol] 137 mmol/L Normal 136-145 [facility] Comment on above: Performed By: #### C MP ####[facility] Tslbpqfzkc7810[address] [place], [place] [address]Dr. Farhat Leal Urea nitrogen [Mass/Vol] 54.0 mg/dL Critically high 7.0-18.0 [facility] Comment on above: Performed By: #### C MP ####[facility] Cewdlxzehv[address] [place], [place] [address]Dr. Farhat Leal Urea nitrogen/Creatinine [Mass ratio] 43.5 mg/mg Normal [facility] Comment on above: Performed By: #### C MP ####[facility] Ghsxsxhwcn182[address] [place], [place] [address]Dr. Farhat Elvsi PROTIMEon 05-22-2022 INR Coag (PPP) [Relative time] 2.27 {INR} Normal [facility] Comment on above: Performed By: #### P T ####[facility] Xqeovyfcan6700[address] [place], [place] [address]Dr. Farhat Leal INR GUIDELINES SEE BELOW Normal [facility] Comment on above: Result Comment: MALINA RED INR: 2.0 - 3.0 CONDITIONS NOT LISTED BELOW 2.5 - 3.5 FOR PROSTHETIC HEART VALVE REPLACEMENT 2.5 - 3.5 RECURRENT THROMBOSIS Performed By: #### P T ####[facility] Cnulvrztpq369[address] [place], [place] [address]Dr. Farhat Leal PT Coag (PPP) [Time] 23.0 s Critically high 9.0-11.6 [facility] Comment on above: Performed By: #### P T ####[facility] Orqgxlebyp1775[address] [place], [place] [address]Dr. Farhat Leal FK506 (TACROLIMUS) WHOLE BLO ODon 05-19-2022 Tacrolimus (FK506), Blood 7.8 ng/mL Normal 2.0-20.0 [facility] Comment on above: Result Comment: Trou gh (immediately following transplant) 15.0 . Trough (steady state, 2 weeks or more after transplant): 3.0 - 8.0 . Performed by LC-MS/MS technology. Performed By: #### F K506T ####[facility] Lazaesumtj4605[address] [place], [place] [address]Dr. Farhat Leal CBC AUTO DIFFon 05-15-2022 BASO # 0.0 103/ul Normal 0.0-0.1 [facility] Comment on above: Performed By: #### C BC ####[facility] Mepxdniwpi4100[address] [place], [place] [address]Dr. Farhat Leal Basophils/100 WBC (Bld) 0.4 % Normal 0.2-2.0 [facility] Comment on above: Performed By: #### C BC ####[facility] Liabyoncna99[address] [place], [place] [address]Dr. Farhat Leal EO # 0.2 103/ul Normal 0.0-0.7 [facility] Comment on above: Performed By: #### C BC ####[facility] Cagawtztyf[address]27 [place] [address]Dr. Farhat Leal Eosinophils/100 WBC (Bld) 3.0 % Normal 0.9-7.0 [facility] Comment on above: Performed By: #### C BC ####[facility] Hpdfwzpnmv487[address] [place], [place] [address]Dr. Farhat Leal Erythrocyte distribution width (RBC) [Ratio] 15.7 % Critically high 11.0-15.0 [facility] Comment on above: Performed By: #### C BC ####[facility] Mphkyuyrms2633[address] [place], [place] [address]Dr. Farhat Leal Hematocrit (Bld) [Volume fraction] 36.8 % Critically low 42.0-54.0 [facility] Comment on above: Performed By: #### C BC ####[facility] Bhwoxidfse2285[address] [place], [place] [address]Dr. Farhat Leal Hemoglobin (Bld) [Mass/Vol] 12.4 g/dL Critically low 14.0-18.0 [facility] Comment on above: Performed By: #### C BC ####[facility] Oosuzhmxct5230[address] [place], [place] [address]Dr. Farhat Leal IG # 0.01 10e3/ul Normal 0.00-0.03 [facility] Comment on above: Performed By: #### C BC ####[facility] Udjnanpign0597[address] [place], [place] [address]Dr. Farhat Leal IG % 0.1 % Normal 0.0-0.5 [facility] Comment on above: Performed By: #### C BC ####[facility] Rbthvrgszr4039[address] [place], [place] [address]Dr. Farhat Lela LYMPH # 2.4 103/ul Normal 1.2-3.8 [facility] Comment on above: Performed By: #### C BC ####[facility] Qbviezbiui6785[address] [place], [place] [address]Dr. Farhat Leal Lymphocytes/100 WBC (Bld) 35.6 % Normal 20.5-60.0 [facility] Comment on above: Performed By: #### C BC ####[facility] Sfeoutkvll8227 [place] [id number]. Farhat Leal MANUAL DIFF REQ NO Normal [facility] Comment on above: Performed By: #### C BC ####[facility] Yutwehyjay7424 [place] [phone]. Farhat Leal MCH (RBC) [Entitic mass] 30.1 pg Normal 25.9-34.0 [facility] Comment on above: Performed By: #### C BC ####[facility] Iwjbvnytlh1834 [place] [address]Dr. Farhat Leal MCHC (RBC) [Mass/Vol] 33.7 g/dL Normal 29.9-35.2 [facility] Comment on above: Performed By: #### C BC ####[facility] Ljtnpylkut6960 [place] [address]Dr. Farhat Elvis MCV (RBC) [Entitic vol] 89.3 fL Normal 80.0-94.0 [facility] Comment on above: Performed By: #### C BC ####[facility] Mwhqjbmrdv[address] [place], [place] [address]Dr. Farhat Elvis MONO # 0.7 103/ul Normal 0.3-0.8 [facility] Comment on above: Performed By: #### C BC ####[facility] Xuthpekkle8375[address] [place], [place] [address]Dr. Madelynlorri Leal Monocytes/100 WBC (Bld) 10.8 % Normal 1.7-12.0 [facility] Comment on above: Performed By: #### C BC ####[facility] Ffvuyjeain923[address] [place], [place] [address]Dr. Farhat Leal NEUT # 3.4 103/ul Normal 1.4-6.5 [facility] Comment on above: Performed By: #### C BC ####[facility] Kqdwlgzvze4[address] [place], [place] [address]Dr. Farhat Leal Neutrophils/100 WBC (Bld) 50.1 % Normal 43.0-75.0 [facility] Comment on above: Performed By: #### C BC ####[facility] Ruwzxlbujt3797 [place] [id number]. Farhat Leal Platelet mean volume (Bld) [Entitic vol] 10.2 fL Normal 9.5-13.5 [facility] Comment on above: Performed By: #### C BC ####[facility] Sceyeullqp7961 [place] [id number]. Farhat Leal PLT 190 103/ul Normal 150-450 [facility] Comment on above: Performed By: #### C BC ####[facility] Gezjvajnhd7367 [place] [address]Dr. Farhat Leal RBC 4.12 106/ul Critically low 4.70-6.10 [facility] Comment on above: Performed By: #### C BC ####[facility] Gtotmgamha7892 [place] [address]Dr. Farhat Leal WBC 6.8 103/ul Normal 4.0-11.0 [facility] Comment on above: Performed By: #### C BC ####[facility] Bhlhxifqxl3446 [place] [address]Dr. Farhat Leal PROF 14(COMP METB)on 023 Albumin [Mass/Vol] 2.8 g/dL Critically low 3.4-5.0 [facility] Comment on above: Performed By: #### C MP ####[facility] Wtspxcbhkq4225 [place] [address]Dr. Farhat Leal Albumin/Globulin [Mass ratio] 0.9 {ratio} Normal [facility] Comment on above: Performed By: #### C MP ####[facility] Mrsntboeog0572 [place] [address]Dr. Farhat Leal ALP [Catalytic activity/Vol] 66 U/L Normal 46-116 [facility] Comment on above: Performed By: #### C MP ####[facility] Xvfertbjzn8898 [place] [address]Dr. Farhat Leal ALT [Catalytic activity/Vol] 15 U/L Critically low 16-63 [facility] Comment on above: Performed By: #### C MP ####[facility] Ptccikpyzq4401 [place] [id number]. Farhat Leal Anion gap [Moles/Vol] 11.1 mmol/L Normal [facility] Comment on above: Performed By: #### C MP ####[facility] Kopbsrygif6093 [place] [address]Dr. Farhat Leal AST [Catalytic activity/Vol] 14 U/L Critically low 15-37 [facility] Comment on above: Performed By: #### C MP ####[facility] Picatolopj04[address] [place], [place] [address]Dr. Farhat Leal Bilirubin [Mass/Vol] 0.8 mg/dL Normal 0.2-1.0 [facility] Comment on above: Performed By: #### C MP ####[facility] Bwhmvprhdk226[address] [place], [place] [address]Dr. Farhat Leal Calcium [Mass/Vol] 8.9 mg/dL Normal 8.5-10.1 [facility] Comment on above: Performed By: #### C MP ####[facility] Oguttyreoa0317[address] [place], [place] [address]Dr. Farhat Elvis Chloride [Moles/Vol] 101 mmol/L Normal 98-107 [facility] Comment on above: Performed By: #### C MP ####[facility] Erhvtcwxdt158[address] [place], [place] [address]Dr. Farhat Leal CO2 [Moles/Vol] 28.2 mmol/L Normal 21.0-32.0 [facility] Comment on above: Performed By: #### C MP ####[facility] Oeoepactcc2733[address] [place], [place] [address]Dr. Madelynlorri Elvis Creatinine [Mass/Vol] 1.23 mg/dL Normal 0.70-1.30 [facility] Comment on above: Performed By: #### C MP ####[facility] Luppudcunz287[address] [place], [place] [address]Dr. Madelynlorri Elvis EGFR-AF IRISH >60 Normal >=60 [facility] Comment on above: Performed By: #### C MP ####[facility] Zklrhylted387[address] [place], [place] [address]Dr. Madelynlorri Elvis EGFR-NON AF IRISH 57 mL/min/1.73m2 Critically low >=60 [facility] Comment on above: Performed By: #### C MP ####[facility] Mpbnyqwjxa2045 [place] [address]Dr. Madelynlorri Elvis Globulin (S) [Mass/Vol] 3.2 g/dL Normal [facility] Comment on above: Performed By: #### C MP ####[facility] Vcmsdhrlwc7760[address] [place], [place] [address]Dr. Madelynlorri Elvis Glucose [Mass/Vol] 333 mg/dL Critically high 74-106 [facility] Comment on above: Performed By: #### C MP ####[facility] Shcutijzzz6169[address] [place], [place] [address]Dr. Farhat Leal Potassium [Moles/Vol] 4.3 mmol/L Normal 3.5-5.1 [facility] Comment on above: Performed By: #### C MP ####[facility] Kduhvuqfue8585[address] [place], [place] [address]Dr. Farhat Leal Protein [Mass/Vol] 6.0 g/dL Critically low 6.4-8.2 Th [facility] Comment on above: Performed By: #### C MP ####[facility] Rcwasxpdeh465[address] [place], [place] [address]Dr. Farhat Leal Sodium [Moles/Vol] 136 mmol/L Normal 136-145 [facility] Comment on above: Performed By: #### C MP ####[facility] Ctsflhqmbv6836[address] [place], [place] [address]Dr. Farhat Leal Urea nitrogen [Mass/Vol] 58.0 mg/dL Critically high 7.0-18.0 [facility] Comment on above: Performed By: #### C MP ####[facility] Utidaszuhs2039[address] [place], [place] [address]Dr. Farhat Leal Urea nitrogen/Creatinine [Mass ratio] 47.2 mg/mg Normal [facility] Comment on above: Performed By: #### C MP ####[facility] Xhsjetmxpi4810[address] [place], [place] [address]DrSkylar Leal PROTIMEon 05-13-2022 INR Coag (PPP) [Relative time] 3.51 {INR} Normal [facility] Comment on above: Performed By: #### P T ####[facility] Yjjdiwxhgm1350 [place] [address]DrSkylar Leal INR GUIDELINES SEE BELOW Normal [facility] Comment on above: Result Comment: MALINA RED INR: 2.0 - 3.0 CONDITIONS NOT LISTED BELOW 2.5 - 3.5 FOR PROSTHETIC HEART VALVE REPLACEMENT 2.5 - 3.5 RECURRENT THROMBOSIS Performed By: #### P T ####[facility] Xdsphlomfn3145[address] [place], [place] [address]DrSkylar Leal PT Coag (PPP) [Time] 34.7 s Critically high 9.0-11.6 [facility] Comment on above: Performed By: #### P T ####[facility] Tgzmeqpnwf348[address] [place], [place] [address]DrSkylar Leal FK506 (TACROLIMUS) WHOLE BLO ODon 05-11-2022 Tacrolimus (FK506), Blood 14.4 ng/mL Normal 2.0-20.0 [facility] Comment on above: Result Comment: Trou gh (immediately following transplant) 15.0 . Trough (steady state, 2 weeks or more after transplant): 3.0 - 8.0 . Performed by LC-MS/MS technology. Performed By: #### F K506T ####[facility] Hhsltwjjjb888[address] [place], [place] [address]DrSkylar Leal CBC AUTO DIFFon 05-08-2022 BASO # 0.0 103/ul Normal 0.0-0.1 [facility] Comment on above: Performed By: #### C BC ####[facility] Bnsmzazciv27[address] [place], [place] [address]DrSkylar Leal Basophils/100 WBC (Bld) 0.5 % Normal 0.2-2.0 [facility] Comment on above: Performed By: #### C BC ####[facility] Lcybuejhri1277[address] [place], [place] [address]DrSkylar Leal EO # 0.2 103/ul Normal 0.0-0.7 [facility] Comment on above: Performed By: #### C BC ####[facility] Jwuqrlpuhx2913 [place] [address]Dr. Farhat Elvis Eosinophils/100 WBC (Bld) 2.9 % Normal 0.9-7.0 [facility] Comment on above: Performed By: #### C BC ####[facility] Uirmukkjdn0525[address] [place], [place] [address]Dr. Farhat Leal Erythrocyte distribution width (RBC) [Ratio] 16.0 % Critically high 11.0-15.0 [facility] Comment on above: Performed By: #### C BC ####[facility] Ygbroktynu8544[address] [place], [place] [address]Dr. Farhat Leal Hematocrit (Bld) [Volume fraction] 35.7 % Critically low 42.0-54.0 [facility] Comment on above: Performed By: #### C BC ####[facility] Ugthtamdpn245[address] [place], [place] [address]Dr. Farhat Leal Hemoglobin (Bld) [Mass/Vol] 11.9 g/dL Critically low 14.0-18.0 [facility] Comment on above: Performed By: #### C BC ####[facility] Pvyfiryfas299[address] [place], [place] [address]Dr. Farhat Leal IG # 0.03 10e3/ul Normal 0.00-0.03 [facility] Comment on above: Performed By: #### C BC ####[facility] Qxtohnmdmu6425[address] [place], [place] [address]Dr. Farhat Leal IG % 0.5 % Normal 0.0-0.5 [facility] Comment on above: Performed By: #### C BC ####[facility] Aebzcstwjn6927[address] [place], [place] [address]Dr. Farhat Leal LYMPH # 2.4 103/ul Normal 1.2-3.8 [facility] Comment on above: Performed By: #### C BC ####[facility] Rralwmtsob3307[address] [place], [place] [address]Dr. Farhat Leal Lymphocytes/100 WBC (Bld) 37.8 % Normal 20.5-60.0 [facility] Comment on above: Performed By: #### C BC ####[facility] Zzsvxqggmr0501 [place] [address]DrSkylar Leal MANUAL DIFF REQ NO Normal [facility] Comment on above: Performed By: #### C BC ####[facility] Rdxmheblba4474 [place] [address]Dr. Farhat Leal MCH (RBC) [Entitic mass] 30.4 pg Normal 25.9-34.0 [facility] Comment on above: Performed By: #### C BC ####[facility] Qewtrdrrje112[address] [place], [place] [address]DrSkylar Leal MCHC (RBC) [Mass/Vol] 33.3 g/dL Normal 29.9-35.2 [facility] Comment on above: Performed By: #### C BC ####[facility] Rypkdcnwly4730[address] [place], [place] [address]DrSkylar Leal MCV (RBC) [Entitic vol] 91.1 fL Normal 80.0-94.0 [facility] Comment on above: Performed By: #### C BC ####[facility] Wdplkfwxbn07[address] [place], [place] [address]DrSkylar Leal MONO # 0.7 103/ul Normal 0.3-0.8 [facility] Comment on above: Performed By: #### C BC ####[facility] Unnlkefkoy503[address] [place], [place] [address]DrSkylar Leal Monocytes/100 WBC (Bld) 11.1 % Normal 1.7-12.0 [facility] Comment on above: Performed By: #### C BC ####[facility] Rbqptryctn9833[address] [place], [place] [address]DrSkylar Leal NEUT # 2.9 103/ul Normal 1.4-6.5 [facility] Comment on above: Performed By: #### C BC ####[facility] Mzlixdjrby813[address] [place], [place] [address]DrSkylar Leal Neutrophils/100 WBC (Bld) 47.2 % Normal 43.0-75.0 [facility] Comment on above: Performed By: #### C BC ####[facility] Hwgxylyvvj4306 [place] [address]Dr. Farhat Leal Platelet mean volume (Bld) [Entitic vol] 11.0 fL Normal 9.5-13.5 [facility] Comment on above: Performed By: #### C BC ####[facility] Xvtvoizour4277 [place] [address]Dr. Farhat Leal PLT 191 103/ul Normal 150-450 [facility] Comment on above: Performed By: #### C BC ####[facility] Fetlarmngt745[address] [place], [place] [address]Dr. Farhat Leal RBC 3.92 106/ul Critically low 4.70-6.10 [facility] Comment on above: Performed By: #### C BC ####[facility] Zrtdzeotkn4057[address] [place], [place] [address]DrSkylar Farhat Elvis WBC 6.2 103/ul Normal 4.0-11.0 [facility] Comment on above: Performed By: #### C BC ####[facility] Ybfmepmyys8789[address] [place], [place] [address]Dr. Farhat Elvis MAGNESIUMon 05-08-2022 Magnesium [Mass/Vol] 1.9 mg/dL Normal 1.8-2.4 [facility] Comment on above: Performed By: #### P HOS, MG ####[facility] Immgjqslda313[address] [place], [place] [address]Dr. Farhat Elvis PHOSPHORUSon 05-08-2022 Phosphate [Mass/Vol] 4.5 mg/dL Normal 2.6-4.7 [facility] Comment on above: Performed By: #### P HOS, MG ####[facility] Zgsrrsexcj[address] [place], [place] [address]DrSkylar Madelynlorri Leal PROF 14(COMP METB)on 023 Albumin [Mass/Vol] 2.9 g/dL Critically low 3.4-5.0 [facility] Comment on above: Performed By: #### C MP ####[facility] Xjhkbmtnof5899 [place] [address]Dr. Farhat Leal Albumin/Globulin [Mass ratio] 0.9 {ratio} Normal [facility] Comment on above: Performed By: #### C MP ####[facility] Xzftygvjka0116 [place] [address]Dr. Farhat Leal ALP [Catalytic activity/Vol] 70 U/L Normal 46-116 [facility] Comment on above: Performed By: #### C MP ####[facility] Sgpvrqhakl6750 [place] [address]Dr. Farhat Leal ALT [Catalytic activity/Vol] 13 U/L Critically low 16-63 [facility] Comment on above: Performed By: #### C MP ####[facility] Houdeiakvq59[address] [place], [place] [address]Dr. Farhat Elvis Anion gap [Moles/Vol] 14.6 mmol/L Normal [facility] Comment on above: Performed By: #### C MP ####[facility] Fdbbafdpld377[address] [place], [place] [address]Dr. Farhat Leal AST [Catalytic activity/Vol] 17 U/L Normal 15-37 [facility] Comment on above: Performed By: #### C MP ####[facility] Mphktnwizf7900[address] [place], [place] [address]Dr. Farhat Leal Bilirubin [Mass/Vol] 0.8 mg/dL Normal 0.2-1.0 [facility] Comment on above: Performed By: #### C MP ####[facility] Rbbdavkpta[address] [place], [place] [address]Dr. Farhat Elvis Calcium [Mass/Vol] 8.9 mg/dL Normal 8.5-10.1 [facility] Comment on above: Performed By: #### C MP ####[facility] Wpngapttgq05[address] [place], [place] [address]Dr. Farhat Elvis Chloride [Moles/Vol] 102 mmol/L Normal 98-107 [facility] Comment on above: Performed By: #### C MP ####[facility] Mghduqkwyx6837[address] [place], [place] [address]Dr. Farhat Leal CO2 [Moles/Vol] 22.9 mmol/L Normal 21.0-32.0 [facility] Comment on above: Performed By: #### C MP ####[facility] Sqeqqpnbjy6315 [place] [address]Dr. Farhat Leal Creatinine [Mass/Vol] 1.20 mg/dL Normal 0.70-1.30 [facility] Comment on above: Performed By: #### C MP ####[facility] Yxfnuwkdcp2944 [place] [address]Dr. Farhat Leal EGFR-AF IRISH >60 Normal >=60 [facility] Comment on above: Performed By: #### C MP ####[facility] Jjerfqefpn[address] [place] [address]Dr. Farhat Leal EGFR-NON AF IRISH 59 mL/min/1.73m2 Critically low >=60 [facility] Comment on above: Performed By: #### C MP ####[facility] Eohtdnnjkp6[address] [place] [address]Dr. Farhat Leal Globulin (S) [Mass/Vol] 3.1 g/dL Normal [facility] Comment on above: Performed By: #### C MP ####[facility] Ytgzhhkknc6[address] [place] [address]Dr. Farhat Leal Glucose [Mass/Vol] 447 mg/dL Critically high 74-106 T [facility] Comment on above: Performed By: #### C MP ####[facility] Uoqiuebbnl0093 [place] [address]Dr. Farhat Leal Potassium [Moles/Vol] 4.5 mmol/L Normal 3.5-5.1 [facility] Comment on above: Performed By: #### C MP ####[facility] Yuphcsfafb76[address] [place] [address]Dr. Farhat Leal Protein [Mass/Vol] 6.0 g/dL Critically low 6.4-8.2 Th [facility] Comment on above: Performed By: #### C MP ####[facility] Rxdhchhsbx30[address] [place] [address]Dr. Farhat Leal Sodium [Moles/Vol] 135 mmol/L Critically low 136-145 Th e [facility] Comment on above: Performed By: #### C MP ####[facility] Atkghbympi5[address] [place] [address]Dr. Farhat Leal Urea nitrogen [Mass/Vol] 52.0 mg/dL Critically high 7.0-18.0 [facility] Comment on above: Performed By: #### C MP ####[facility] Qwivxnnixy[address] [place], [place] [address]Dr. Farhat Leal Urea nitrogen/Creatinine [Mass ratio] 43.3 mg/mg Normal [facility] Comment on above: Performed By: #### C MP ####[facility] Hzaliqgfsl7[address] [place], [place] [address]DrSkylar Leal PROTIMEon 05-06-2022 INR Coag (PPP) [Relative time] 2.25 {INR} Normal [facility] Comment on above: Performed By: #### P T ####[facility] Btyndudjei89[address] [place], [place] [address]Dr. Farhat Leal INR GUIDELINES SEE BELOW Normal The [facility] Comment on above: Result Comment: MALINA RED INR: 2.0 - 3.0 CONDITIONS NOT LISTED BELOW 2.5 - 3.5 FOR PROSTHETIC HEART VALVE REPLACEMENT 2.5 - 3.5 RECURRENT THROMBOSIS Performed By: #### P T ####[facility] Hcftzbkjee235[address] [place], [place] [address]Dr. Farhat Leal PT Coag (PPP) [Time] 22.8 s Critically high 9.0-11.6 [facility] Comment on above: Performed By: #### P T ####[facility] Ofyghtnqfa526[address] [place], [place] [address]DrSkylar Leal FK506 (TACROLIMUS) WHOLE BLO ODon 05-04-2022 Tacrolimus (FK506), Blood 10.4 ng/mL Normal 2.0-20.0 [facility] Comment on above: Result Comment: Trou gh (immediately following transplant) 15.0 . Trough (steady state, 2 weeks or more after transplant): 3.0 - 8.0 . Performed by LC-MS/MS technology. Performed By: #### F K506T ####[facility] Fdfofelqir[address] [place] [address]Dr. Madelynlorri Elvis CBC AUTO DIFFon 05-01-2022 BASO # 0.1 103/ul Normal 0.0-0.1 [facility] Comment on above: Performed By: #### C BC ####[facility] Zjrqbczann86[address] [place], [place] [address]Dr. Farhat Leal Basophils/100 WBC (Bld) 0.7 % Normal 0.2-2.0 [facility] Comment on above: Performed By: #### C BC ####[facility] Inxbvoqyyg8227[address] [place], [place] [address]Dr. Farhat Leal EO # 0.2 103/ul Normal 0.0-0.7 [facility] Comment on above: Performed By: #### C BC ####[facility] Yghdwiqvtz[address] [place], [place] [address]Dr. Farhat Leal Eosinophils/100 WBC (Bld) 3.2 % Normal 0.9-7.0 The [facility] Comment on above: Performed By: #### C BC ####[facility] Gpwfpjluiw767[address] [place], [place] [address]Dr. Farhat Leal Erythrocyte distribution width (RBC) [Ratio] 16.4 % Critically high 11.0-15.0 [facility] Comment on above: Performed By: #### C BC ####[facility] Lcpqiuwsij[address] [place], [place] [address]Dr. Farhat Leal Hematocrit (Bld) [Volume fraction] 35.1 % Critically low 42.0-54.0 [facility] Comment on above: Performed By: #### C BC ####[facility] Kixocjjtrb3309[address] [place], [place] [address]Dr. Farhat Leal Hemoglobin (Bld) [Mass/Vol] 11.6 g/dL Critically low 14.0-18.0 [facility] Comment on above: Performed By: #### C BC ####[facility] Bhnjmtahri5[address] [place], [place] [address]Dr. Farhat Leal IG # 0.03 10e3/ul Normal 0.00-0.03 [facility] Comment on above: Performed By: #### C BC ####[facility] Bieoisihbp[address] [place] [address]DrSkylar Farhat Elvis IG % 0.4 % Normal 0.0-0.5 [facility] Comment on above: Performed By: #### C BC ####[facility] Wfoqfluwzb8464 [place] [address]DrSkylar Farhat Elvis LYMPH # 2.4 103/ul Normal 1.2-3.8 [facility] Comment on above: Performed By: #### C BC ####[facility] Cllmddtyoq40[address] [place] [address]DrSkylar Madelynlorri Leal Lymphocytes/100 WBC (Bld) 35.1 % Normal 20.5-60.0 [facility] Comment on above: Performed By: #### C BC ####[facility] Tzqblofhwb[address] [place], [place] [address]DrSkylar Farhat Elvis MANUAL DIFF REQ NO Normal [facility] Comment on above: Performed By: #### C BC ####[facility] Fbuhcfutdv22[address] [place] [address]DrSkylar Farhat Elvis MCH (RBC) [Entitic mass] 29.4 pg Normal 25.9-34.0 [facility] Comment on above: Performed By: #### C BC ####[facility] Ukgzdqhdrm56[address] [place] [address]DrSkylar Farhat Elvis MCHC (RBC) [Mass/Vol] 33.0 g/dL Normal 29.9-35.2 The [facility] Comment on above: Performed By: #### C BC ####[facility] Yadaunxbgv6504 [place] [address]DrSkylar Leal MCV (RBC) [Entitic vol] 88.9 fL Normal 80.0-94.0 [facility] Comment on above: Performed By: #### C BC ####[facility] Rnwhpiloqe89[address] [place], [place] [address]DrSkylar Leal MONO # 0.7 103/ul Normal 0.3-0.8 [facility] Comment on above: Performed By: #### C BC ####[facility] Nfvbqkopkg3492 [place] [address]Dr. Farhat Leal Monocytes/100 WBC (Bld) 9.6 % Normal 1.7-12.0 [facility] Comment on above: Performed By: #### C BC ####[facility] Eichcggtos5[address] [place] [address]Dr. Farhta Leal NEUT # 3.5 103/ul Normal 1.4-6.5 [facility] Comment on above: Performed By: #### C BC ####[facility] Zwufzulecq2547 [place] [address]Dr. Farhat Leal Neutrophils/100 WBC (Bld) 51.0 % Normal 43.0-75.0 [facility] Comment on above: Performed By: #### C BC ####[facility] Wmizpxkhpr668[address] [place], [place] [address]Dr. Farhat Leal Platelet mean volume (Bld) [Entitic vol] 10.3 fL Normal 9.5-13.5 The [facility] Comment on above: Performed By: #### C BC ####[facility] Otrdimgnbp1910[address] [place], [place] [address]Dr. Farhat Leal PLT 184 103/ul Normal 150-450 [facility] Comment on above: Performed By: #### C BC ####[facility] Wnnlqlqabl3883 [place] [address]Dr. Farhat Leal RBC 3.95 106/ul Critically low 4.70-6.10 The [facility] Comment on above: Performed By: #### C BC ####[facility] Wghafckrvs4[address] [place] [id number]. Farhat Leal WBC 7.0 103/ul Normal 4.0-11.0 The [facility] Comment on above: Performed By: #### C BC ####[facility] Qbmjakczbm3436 [place] [address]DrSkylar Leal PROF 14(COMP METB)on 03-17-2 023 Albumin [Mass/Vol] 2.6 g/dL Critically low 3.4-5.0 Th [facility] Comment on above: Performed By: #### C MP ####[facility] Brgshraoon77[address] [place] [address]Dr. Farhat Leal Albumin/Globulin [Mass ratio] 0.9 {ratio} Normal [facility] Comment on above: Performed By: #### C MP ####[facility] Qpazsqvboa37[address] [place] [address]Dr. Farhat Leal ALP [Catalytic activity/Vol] 53 U/L Normal 46-116 [facility] Comment on above: Performed By: #### C MP ####[facility] Ypryprdqrx[address] [place], [place] [address]Dr. Farhat Leal ALT [Catalytic activity/Vol] 17 U/L Normal 16-63 [facility] Comment on above: Performed By: #### C MP ####[facility] Jaaeljauuk[address] [place], [place] [address]Dr. Farhat Leal Anion gap [Moles/Vol] 10.0 mmol/L Normal Th [facility] Comment on above: Performed By: #### C MP ####[facility] Nfssexgrci7[address] [place], [place] [address]Dr. Farhat Leal AST [Catalytic activity/Vol] 19 U/L Normal 15-37 [facility] Comment on above: Performed By: #### C MP ####[facility] Owsfgbmkko37[address] [place], [place] [address]Dr. Farhat Leal Bilirubin [Mass/Vol] 0.5 mg/dL Normal 0.2-1.0 [facility] Comment on above: Performed By: #### C MP ####[facility] Kpdrzehkzb996[address] [place], [place] [address]Dr. Farhat Leal Calcium [Mass/Vol] 8.4 mg/dL Critically low 8.5-10.1 Th [facility] Comment on above: Performed By: #### C MP ####[facility] Aclqfpjvbv456[address] [place], [place] [address]Dr. Farhat Leal Chloride [Moles/Vol] 108 mmol/L Critically high 98-107 [facility] Comment on above: Performed By: #### C MP ####[facility] Cxqfczrtcf4742 [place] [address]Dr. Farhat Leal CO2 [Moles/Vol] 26.9 mmol/L Normal 21.0-32.0 [facility] Comment on above: Performed By: #### C MP ####[facility] Riuulvfzfp9524 [place] [address]Dr. Fahrat Leal Creatinine [Mass/Vol] 1.20 mg/dL Normal 0.70-1.30 [facility] Comment on above: Performed By: #### C MP ####[facility] Pdaspawozf75[address] [place] [address]Dr. Farhat Leal EGFR-AF IRISH >60 Normal >=60 [facility] Comment on above: Performed By: #### C MP ####[facility] Vrnqgdqkdy3754 [place] [address]Dr. Farhat Elvis EGFR-NON AF IRISH 59 mL/min/1.73m2 Critically low >=60 [facility] Comment on above: Performed By: #### C MP ####[facility] Xlgwxbkbff0567 [place] [address]Dr. Farhat Leal Globulin (S) [Mass/Vol] 3.0 g/dL Normal [facility] Comment on above: Performed By: #### C MP ####[facility] Kevifnhmhl6709 [place] [address]Dr. Farhat Leal Glucose [Mass/Vol] 213 mg/dL Critically high 74-106 [facility] Comment on above: Performed By: #### C MP ####[facility] Ebddhzkesr20[address] [place] [id number]. Farhat Leal Potassium [Moles/Vol] 3.9 mmol/L Normal 3.5-5.1 The [facility] Comment on above: Performed By: #### C MP ####[facility] Pvpicpqdco9049 [place] [id number]. Farhat Elvis Protein [Mass/Vol] 5.6 g/dL Critically low 6.4-8.2 Th e [facility] Comment on above: Performed By: #### C MP ####[facility] Kbmgwwgsrm7281 [place] [address]Dr. Farhat Leal Sodium [Moles/Vol] 141 mmol/L Normal 136-145 [facility] Comment on above: Performed By: #### C MP ####[facility] Jiduismxxc7135 [place] [address]Dr. Farhat Leal Urea nitrogen [Mass/Vol] 61.0 mg/dL Critically high 7.0-18.0 [facility] Comment on above: Performed By: #### C MP ####[facility] Sblegqdtjl07[address] [place], [place] [address]Dr. Farhat Leal Urea nitrogen/Creatinine [Mass ratio] 50.8 mg/mg Normal [facility] Comment on above: Performed By: #### C MP ####[facility] Kwsrdlzcvw23[address] [place], [place] [address]Dr. Farhat Leal FK506 (TACROLIMUS) WHOLE BLO ODon 04-27-2022 Tacrolimus (FK506), Blood 16.5 ng/mL Normal 2.0-20.0 [facility] Comment on above: Result Comment: Trou gh (immediately following transplant) 15.0 . Trough (steady state, 2 weeks or more after transplant): 3.0 - 8.0 . Performed by LC-MS/MS technology. Performed By: #### F K506T ####[facility] Bqpeblqxqr7[address] [place], [place] [address]Dr. Farhat Leal CBC AUTO DIFFon 04-24-2022 BASO # 0.0 103/ul Normal 0.0-0.1 [facility] Comment on above: Performed By: #### C BC ####[facility] Ossgizgdkz[address] [place], [place] [address]Dr. Farhat Leal Basophils/100 WBC (Bld) 0.5 % Normal 0.2-2.0 [facility] Comment on above: Performed By: #### C BC ####[facility] Qifolgmxsn8220[address] [place], [place] [address]Dr. Farhat Leal EO # 0.2 103/ul Normal 0.0-0.7 [facility] Comment on above: Performed By: #### C BC ####[facility] Xrdebnxeup5200 [place] [address]Dr. Farhat Leal Eosinophils/100 WBC (Bld) 3.1 % Normal 0.9-7.0 [facility] Comment on above: Performed By: #### C BC ####[facility] Wyguvxttdv1021 [place] [address]Dr. Farhat Leal Erythrocyte distribution width (RBC) [Ratio] 16.3 % Critically high 11.0-15.0 The [facility] Comment on above: Performed By: #### C BC ####[facility] Gyfeunbhpm870[address] [place], [place] [address]Dr. Farhat Leal Hematocrit (Bld) [Volume fraction] 34.0 % Critically low 42.0-54.0 [facility] Comment on above: Performed By: #### C BC ####[facility] Ykjrpsktng[address] [place], [place] [address]Dr. Farhat Leal Hemoglobin (Bld) [Mass/Vol] 11.6 g/dL Critically low 14.0-18.0 [facility] Comment on above: Performed By: #### C BC ####[facility] Bkwojdkmbq45[address] [place], [place] [address]Dr. Farhat Leal IG # 0.02 10e3/ul Normal 0.00-0.03 [facility] Comment on above: Performed By: #### C BC ####[facility] Vuqpxtyvan[address] [place], [place] [address]Dr. Farhat Leal IG % 0.4 % Normal 0.0-0.5 [facility] Comment on above: Performed By: #### C BC ####[facility] Stohdstlno07[address] [place], [place] [address]Dr. Farhat Leal LYMPH # 2.2 103/ul Normal 1.2-3.8 The [facility] Comment on above: Performed By: #### C BC ####[facility] Tmsgulftui518[address] [place], [place] [address]Dr. Farhat Leal Lymphocytes/100 WBC (Bld) 38.8 % Normal 20.5-60.0 [facility] Comment on above: Performed By: #### C BC ####[facility] Kzfrnohozy34[address] [place] [address]DrSkylar Leal MANUAL DIFF REQ NO Normal [facility] Comment on above: Performed By: #### C BC ####[facility] Yrlcgfhzus4132 [place] [address]Dr. Farhat Leal MCH (RBC) [Entitic mass] 30.1 pg Normal 25.9-34.0 [facility] Comment on above: Performed By: #### C BC ####[facility] Wagsgrlmtt23[address] [place], [place] [address]DrSkylar Leal MCHC (RBC) [Mass/Vol] 34.1 g/dL Normal 29.9-35.2 [facility] Comment on above: Performed By: #### C BC ####[facility] Okomhrzojq1269[address] [place], [place] [address]DrSkylar Leal MCV (RBC) [Entitic vol] 88.1 fL Normal 80.0-94.0 [facility] Comment on above: Performed By: #### C BC ####[facility] Tdmzixnpzh024[address] [place], [place] [address]DrSkylar Leal MONO # 0.6 103/ul Normal 0.3-0.8 [facility] Comment on above: Performed By: #### C BC ####[facility] Izxgojffez4834[address] [place], [place] [address]DrSkylar Leal Monocytes/100 WBC (Bld) 10.8 % Normal 1.7-12.0 [facility] Comment on above: Performed By: #### C BC ####[facility] Qfzptdhjtq9[address] [place], [place] [address]DrSkylar Leal NEUT # 2.6 103/ul Normal 1.4-6.5 [facility] Comment on above: Performed By: #### C BC ####[facility] Bptqqaemex[address] [place], [place] [address]DrSkylar Leal Neutrophils/100 WBC (Bld) 46.4 % Normal 43.0-75.0 [facility] Comment on above: Performed By: #### C BC ####[facility] Biygstiivu77[address] [place] [address]Dr. Farhat Leal Platelet mean volume (Bld) [Entitic vol] 10.9 fL Normal 9.5-13.5 [facility] Comment on above: Performed By: #### C BC ####[facility] Adjgjvcbeh14[address] [place] [address]Dr. Madelynlorri Elvis PLT 159 103/ul Normal 150-450 [facility] Comment on above: Performed By: #### C BC ####[facility] Zvmkmrxunr5442 [place] [address]Dr. Farhat Leal RBC 3.86 106/ul Critically low 4.70-6.10 [facility] Comment on above: Performed By: #### C BC ####[facility] Wabvlkoajl[address] [place], [place] [address]Dr. Farhat Leal WBC 5.6 103/ul Normal 4.0-11.0 [facility] Comment on above: Performed By: #### C BC ####[facility] Yhhgcslcjk4103 [place] [address]DrSkylar Leal PROTIMEon 04-24-2022 INR Coag (PPP) [Relative time] 3.23 {INR} Normal [facility] Comment on above: Performed By: #### P T ####[facility] Hgwfmhqjmm[address] [place], [place] [address]Dr. Farhat Leal INR GUIDELINES SEE BELOW Normal [facility] Comment on above: Result Comment: MALINA RED INR: 2.0 - 3.0 CONDITIONS NOT LISTED BELOW 2.5 - 3.5 FOR PROSTHETIC HEART VALVE REPLACEMENT 2.5 - 3.5 RECURRENT THROMBOSIS Performed By: #### P T ####[facility] Vehelbhqxk75[address] [place], [place] [address]Dr. Farhat Leal PT Coag (PPP) [Time] 32.0 s Critically high 9.0-11.6 [facility] Comment on above: Performed By: #### P T ####[facility] Rayarswofb340[address] [place] [address]Dr. Farhat Leal FK506 (TACROLIMUS) WHOLE BLO ODon 04-20-2022 Tacrolimus (FK506), Blood 13.9 ng/mL Normal 2.0-20.0 [facility] Comment on above: Result Comment: Trou gh (immediately following transplant) 15.0 . Trough (steady state, 2 weeks or more after transplant): 3.0 - 8.0 . Performed by LC-MS/MS technology. Performed By: #### F K506T ####[facility] Idbhpgwemf[address] [place], [place] [address]Dr. Farhat Leal CBC AUTO DIFFon 04-17-2022 BASO # 0.0 103/ul Normal 0.0-0.1 [facility] Comment on above: Performed By: #### C BC ####[facility] Fujhbsdlqf04[address] [place], [place] [address]Dr. Farhat Leal Basophils/100 WBC (Bld) 0.4 % Normal 0.2-2.0 [facility] Comment on above: Performed By: #### C BC ####[facility] Fxlksclema13[address] [place], [place] [address]Dr. Farhat Leal EO # 0.2 103/ul Normal 0.0-0.7 [facility] Comment on above: Performed By: #### C BC ####[facility] Lookkbjdtm44[address] [place], [place] [address]Dr. Farhat Leal Eosinophils/100 WBC (Bld) 2.8 % Normal 0.9-7.0 [facility] Comment on above: Performed By: #### C BC ####[facility] Ustqoikyvv8[address] [place], [place] [address]Dr. Farhat Leal Erythrocyte distribution width (RBC) [Ratio] 16.1 % Critically high 11.0-15.0 [facility] Comment on above: Performed By: #### C BC ####[facility] Xzvylgotrs[address] [place], [place] [address]Dr. Farhat Leal Hematocrit (Bld) [Volume fraction] 35.7 % Critically low 42.0-54.0 [facility] Comment on above: Performed By: #### C BC ####[facility] Itsoqmcohk3438 [place] [id number]. Farhat Leal Hemoglobin (Bld) [Mass/Vol] 12.2 g/dL Critically low 14.0-18.0 [facility] Comment on above: Performed By: #### C BC ####[facility] Iqjksofwab5122 [place] [id number]. Farhat Leal IG # 0.03 10e3/ul Normal 0.00-0.03 [facility] Comment on above: Performed By: #### C BC ####[facility] Pfefbwqvmy5820 [place] [id number]. Farhat Leal IG % 0.4 % Normal 0.0-0.5 [facility] Comment on above: Performed By: #### C BC ####[facility] Tvpihwojvr030[address] [place] [address]Dr. Farhat Leal LYMPH # 2.4 103/ul Normal 1.2-3.8 [facility] Comment on above: Performed By: #### C BC ####[facility] Uweoqsanaq0916 [place] [id number]. Farhat Leal Lymphocytes/100 WBC (Bld) 36.1 % Normal 20.5-60.0 [facility] Comment on above: Performed By: #### C BC ####[facility] Xnepazjqam9525 [place] [id number]. Farhat Leal MANUAL DIFF REQ NO Normal [facility] Comment on above: Performed By: #### C BC ####[facility] Wrxfrczncr2176 [place] [id number]. Farhat Leal MCH (RBC) [Entitic mass] 30.3 pg Normal 25.9-34.0 [facility] Comment on above: Performed By: #### C BC ####[facility] Sooskifwdo5804 [place] [id number]. Farhat Leal MCHC (RBC) [Mass/Vol] 34.2 g/dL Normal 29.9-35.2 [facility] Comment on above: Performed By: #### C BC ####[facility] Ehpzvmudga9412 [place] [id number]. Farhat Leal MCV (RBC) [Entitic vol] 88.6 fL Normal 80.0-94.0 [facility] Comment on above: Performed By: #### C BC ####[facility] Ieppolxbgg1652 [place] [id number]. Farhat Leal MONO # 0.7 103/ul Normal 0.3-0.8 [facility] Comment on above: Performed By: #### C BC ####[facility] Xmnbhdswbq5334 [place] [address]Dr. Farhat Leal Monocytes/100 WBC (Bld) 10.1 % Normal 1.7-12.0 [facility] Comment on above: Performed By: #### C BC ####[facility] Cxbeacgjft[address] [place], [place] [address]Dr. Farhat Leal NEUT # 3.4 103/ul Normal 1.4-6.5 [facility] Comment on above: Performed By: #### C BC ####[facility] [address] [place], [place] [address]Dr. Farhat Leal Neutrophils/100 WBC (Bld) 50.2 % Normal 43.0-75.0 [facility] Comment on above: Performed By: #### C BC ####[facility] [address]tyd[address] [place], [place] [address]Dr. Farhat Leal Platelet mean volume (Bld) [Entitic vol] 11.8 fL Normal 9.5-13.5 [facility] Comment on above: Performed By: #### C BC ####[facility] Ibhfqkjfmd5262 [place] [id number]. Farhat Leal PLT 193 103/ul Normal 150-450 [facility] Comment on above: Performed By: #### C BC ####[facility] Dvrvmjlhtv8011 [place] [id number]. Farhat Elvis RBC 4.03 106/ul Critically low 4.70-6.10 [facility] Comment on above: Performed By: #### C BC ####[facility] Apxurdkyck14[address] [place] [address]Dr. Farhat Leal WBC 6.8 103/ul Normal 4.0-11.0 [facility] Comment on above: Performed By: #### C BC ####[facility] Olnkryglqh8885 [place] [address]Dr. Farhat Leal PROF 14(COMP METB)on 023 Albumin [Mass/Vol] 2.9 g/dL Critically low 3.4-5.0 [facility] Comment on above: Performed By: #### C MP ####[facility] Kfutglcrmv7927 [place] [address]Dr. Farhat Leal Albumin/Globulin [Mass ratio] 0.9 {ratio} Normal [facility] Comment on above: Performed By: #### C MP ####[facility] Wbmylkniue[address] [place], [place] [address]Dr. Farhat Leal ALP [Catalytic activity/Vol] 67 U/L Normal 46-116 [facility] Comment on above: Performed By: #### C MP ####[facility] Ruigdxbbgd1273 [place] [address]Dr. Farhat Leal ALT [Catalytic activity/Vol] 15 U/L Critically low 16-63 [facility] Comment on above: Performed By: #### C MP ####[facility] Avkwbnqufg8473 [place] [address]Dr. Farhat Leal Anion gap [Moles/Vol] 10.8 mmol/L Normal [facility] Comment on above: Performed By: #### C MP ####[facility] Exehkqcasa0816 [place] [address]Dr. Farhat Leal AST [Catalytic activity/Vol] 23 U/L Normal 15-37 [facility] Comment on above: Performed By: #### C MP ####[facility] Ctajgurfml7279 [place] [address]Dr. Farhat Leal Bilirubin [Mass/Vol] 0.6 mg/dL Normal 0.2-1.0 [facility] Comment on above: Performed By: #### C MP ####[facility] Grxepjmjmp1257 [place] [address]Dr. Farhat Leal Calcium [Mass/Vol] 8.7 mg/dL Normal 8.5-10.1 [facility] Comment on above: Performed By: #### C MP ####[facility] Vaztgveqms[address] [place] [place] [address]Dr. Farhat Leal Chloride [Moles/Vol] 105 mmol/L Normal 98-107 [facility] Comment on above: Performed By: #### C MP ####[facility] Xztqlyzhys[address] [place] [address]Dr. Farhat Leal CO2 [Moles/Vol] 29.5 mmol/L Normal 21.0-32.0 [facility] Comment on above: Performed By: #### C MP ####[facility] Fyrofoywpd[address] [place], [place] [address]Dr. Farhat Leal Creatinine [Mass/Vol] 1.37 mg/dL Critically high 0.70-1.30 [facility] Comment on above: Performed By: #### C MP ####[facility] Lzatpgbwhq45[address] [place] [address]Dr. Farhat Leal EGFR-AF IRISH >60 Normal >=60 [facility] Comment on above: Performed By: #### C MP ####[facility] Mwwrwzfawr[address] [place], [place] [address]Dr. Farhat Leal EGFR-NON AF IRISH 50 mL/min/1.73m2 Critically low >=60 [facility] Comment on above: Performed By: #### C MP ####[facility] Ivqnqjidgy9[address] [place], [place] [address]Dr. Farhat Leal Globulin (S) [Mass/Vol] 3.1 g/dL Normal [facility] Comment on above: Performed By: #### C MP ####[facility] Lnbnmrgqvz28[address] [place] [address]Dr. Farhat Leal Glucose [Mass/Vol] 203 mg/dL Critically high 74-106 [facility] Comment on above: Performed By: #### C MP ####[facility] Ybccmtlawj5536 [place] [id number]. Farhat Leal Potassium [Moles/Vol] 4.3 mmol/L Normal 3.5-5.1 [facility] Comment on above: Performed By: #### C MP ####[facility] Qddiqvxdqq0855 [place] [id number]. Farhat Leal Protein [Mass/Vol] 6.0 g/dL Critically low 6.4-8.2 [facility] Comment on above: Performed By: #### C MP ####[facility] Pkkpfmtywc0138 [place] [address]Dr. Farhat Leal Sodium [Moles/Vol] 141 mmol/L Normal 136-145 [facility] Comment on above: Performed By: #### C MP ####[facility] Wechgqpjsy7[address] [place], [place] [address]Dr. Farhat Leal Urea nitrogen [Mass/Vol] 65.0 mg/dL Critically high 7.0-18.0 [facility] Comment on above: Performed By: #### C MP ####[facility] Tebhddkgpn187[address] [place], [place] [address]Dr. Farhat Leal Urea nitrogen/Creatinine [Mass ratio] 47.4 mg/mg Normal [facility] Comment on above: Performed By: #### C MP ####[facility] Oubfhdjsbf[address] [place], [place] [address]Dr. Farhat Leal PROTIMEon 04-15-2022 INR Coag (PPP) [Relative time] 3.88 {INR} Normal [facility] Comment on above: Performed By: #### P T ####[facility] Loitjojhvt[address] [place], [place] [address]Dr. Farhat Leal INR GUIDELINES SEE BELOW Normal [facility] Comment on above: Result Comment: MALINA RED INR: 2.0 - 3.0 CONDITIONS NOT LISTED BELOW 2.5 - 3.5 FOR PROSTHETIC HEART VALVE REPLACEMENT 2.5 - 3.5 RECURRENT THROMBOSIS Performed By: #### P T ####[facility] Nolompkbxr[address] [place], [place] [address]Dr. Farhat Lela PT Coag (PPP) [Time] 38.1 s Critically high 9.0-11.6 [facility] Comment on above: Performed By: #### P T ####[facility] Ntqfaczcqy9568 [place] [id number]. Farhat Leal Glucose Glucometer (BldC) [M ass/Vol]Ordered By: Sadia Aguilar on 04-14-2022 Glucose [Mass/Vol] 162 mg/dL [facility] Comment on above: Random Glucose Refer ence Range is dependent on time and content of last meal. Glucose of more than 200 mg/dL in a nonstressed, ambulatory subject supports the diagnosis of Diabetes Mellitus. Glucose Poct Glucometerson 0 04-14-2022 Commemt1 Glu2: Cleaned Meter Normal [facility] Comment on above: Result Comment: PERF ORMED BY: [facility] [address] [address] PATHOLOGIST ACID REMOVER JOSE F ELLIOTT M.D. Performed By: #### G LULS #### Point of Care testing , Glucose [Mass/Vol] 162 mg/dL Normal [facility] Comment on above: Result Comment: [place] om Glucose Reference Range is dependent on time and content of last meal. Glucose of more than 200 mg/dL in a nonstressed, ambulatory subject supports the diagnosis of Diabetes Mellitus. Performed By: #### G LULS #### Point of Care testing , No Panel InformationOrdered By: Sadia Aguilar on 04-14-2022 Bedside Glucose Comment Glu2: cleaned meter [facility] MAGNESIUMon 04-13-2022 Magnesium [Mass/Vol] 1.7 mg/dL Critically low 1.8-2.4 [facility] Comment on above: Performed By: #### HENRI Winters ####[facility] Eikllfhcon76[address] [place] [id number] Leal PHOSPHORUSon 04-13-2022 Phosphate [Mass/Vol] 4.8 mg/dL Critically high 2.6-4.7 [facility] Comment on above: Performed By: #### HENRI Winters ####[facility] Nrttphpwxa8[address] [place] [address]Dr. Farhat Leal PROTIMEon 04-13-2022 INR Coag (PPP) [Relative time] 3.16 {INR} Normal [facility] Comment on above: Performed By: #### P T ####[facility] Uhbpbtugco4[address] [place] [address]Dr. Farhat Leal INR GUIDELINES SEE BELOW Normal [facility] Comment on above: Result Comment: MALINA RED INR: 2.0 - 3.0 CONDITIONS NOT LISTED BELOW 2.5 - 3.5 FOR PROSTHETIC HEART VALVE REPLACEMENT 2.5 - 3.5 RECURRENT THROMBOSIS Performed By: #### P T ####[facility] Jbuggvhjgo[address] [place], [place] [address]Dr. Farhat Leal PT Coag (PPP) [Time] 31.4 s Critically high 9.0-11.6 [facility] Comment on above: Performed By: #### P T ####[facility] Kmihwkkgrp[address] [place], [place] [address]Dr. Farhat Leal MAGNESIUMon 03-11-2022 Magnesium [Mass/Vol] 1.6 mg/dL Critically low 1.8-2.4 [facility] Comment on above: Performed By: #### M HENRI Manzo ####[facility] Ysxriqsljk[address] [place], [place] [address]Dr. Farhat Leal PHOSPHORUSon 03-11-2022 Phosphate [Mass/Vol] 5.3 mg/dL Critically high 2.6-4.7 [facility] Comment on above: Performed By: #### Demetrice Manzo PHOS ####[facility] Fpkjtakixy493[address] [place], [place] [address]Dr. Farhat Leal PROTIMEon 02-25-2022 INR Coag (PPP) [Relative time] 1.31 {INR} Normal [facility] Comment on above: Performed By: #### P T ####[facility] Uxerlvayvs[address] [place], [place] [address]Dr. Farhat Leal INR GUIDELINES SEE BELOW Normal [facility] Comment on above: Result Comment: MALINA RED INR: 2.0 - 3.0 CONDITIONS NOT LISTED BELOW 2.5 - 3.5 FOR PROSTHETIC HEART VALVE REPLACEMENT 2.5 - 3.5 RECURRENT THROMBOSIS Performed By: #### P T ####[facility] Qkerrivefg7942 [place] [address]Dr. Farhat Leal PT Coag (PPP) [Time] 13.7 s Critically high 9.0-11.6 [facility] Comment on above: Performed By: #### P T ####[facility] Biblwnfgsy260[address] [place] [address]DrSkylar Leal PROTEIN CREATININE RATIOon 1 04-08-2021 Protein/Creatinine (U) [Mass ratio] 0.10 mg/mg <0.15 mg/mg [facility] PROTIMEon 02-05-2022 INR Coag (PPP) [Relative time] 2.90 {INR} Normal [facility] Comment on above: Performed By: #### P T ####[facility] Cfdixvpucu213[address] [place], [place] [address]DrSkylar Leal INR GUIDELINES SEE BELOW Normal [facility] Comment on above: Result Comment: MALINA RED INR: 2.0 - 3.0 CONDITIONS NOT LISTED BELOW 2.5 - 3.5 FOR PROSTHETIC HEART VALVE REPLACEMENT 2.5 - 3.5 RECURRENT THROMBOSIS Performed By: #### P T ####[facility] Ktqvkbwbly[address] [place], [place] [address]DrSkylar Leal PT Coag (PPP) [Time] 29.2 s Critically high 9.0-11.6 [facility] Comment on above: Performed By: #### P T ####[facility] Eeyuyakwoy[address] [place], [place] [address]DrSkylar Leal Protein/Creatinine (U) [Mass ratio]on 02-05-2022 Creatinine (U) [Mass/Vol] 86.9 mg/dL 20.0 - 300.0 mg/dL [facility] Protein (U) [Mass/Vol] 9 mg/dL 0 - 20 mg/dL [facility] URINALYSIS, DIPSTICK ONLYon 02-05-2022 Bilirubin Ql (U) Negative Negative [facility] Clarity (Unsp spec) Clear Clear [facility] Color (U) Yellow Yellow [facility] Glucose Test strip (U) [Mass/Vol] 3+ Abnormal Trace, Negative [facility] Hemoglobin Ql (U) Negative Negative, Trace [facility] Ketones Ql (U) Trace Negative, Trace [facility] Leukocyte esterase Test strip Ql (U) Negative Negative, 25 Loraine/mL [facility] Nitrite Ql (U) Negative Negative [facility] pH (U) 5.5 [pH] 5.0 - 8.0 [facility] Protein (U) [Mass/Vol] Negative Trace , Negative [facility] Specific gravity (U) [Rel density] 1.014 1.005 - 1.030 [facility] Urobilinogen Ql (U) 1+ Abnormal Negative [facility] FK506 (TACROLIMUS) WHOLE BLO ODon 01-29-2022 Tacrolimus (FK506), Blood 11.1 ng/mL Normal 2.0-20.0 [facility] Comment on above: Result Comment: Trou gh (immediately following transplant) 15.0 . Trough (steady state, 2 weeks or more after transplant): 3.0 - 8.0 . Performed by LC-MS/MS technology. Performed By: #### F K506T ####[facility] Swjsorskqn39[address] [place], [place] [address]Dr. Farhat Leal PHOSPHORUSon 01-26-2022 Phosphate [Mass/Vol] 4.1 mg/dL Normal 2.6-4.7 [facility] Comment on above: Performed By: #### C CARA, PHOS ####[facility] Gvcobkzgrb4361 [place] [address]DrSkylar Leal PROF 14(COMP METB)on 022 Albumin [Mass/Vol] 2.1 g/dL Critically low 3.4-5.0 [facility] Comment on above: Performed By: #### C CARA, PHOS ####[facility] Glnvyocamy65[address] [place] [address]Dr. Farhat Leal Albumin/Globulin [Mass ratio] 0.6 {ratio} Normal [facility] Comment on above: Performed By: #### C CARA, PHOS ####[facility] Shfnrugjvf7277 [place] [address]Dr. Farhat Leal ALP [Catalytic activity/Vol] 89 U/L Normal 46-116 [facility] Comment on above: Performed By: #### C MP, PHOS ####[facility] Rawqtdeews198[address] [place], [place] [address]Dr. Farhat Leal ALT [Catalytic activity/Vol] 27 U/L Normal 16-63 [facility] Comment on above: Performed By: #### C CARA, PHOS ####[facility] Odqvfymskq7645[address] [place], [place] [address]Dr. Farhat Leal Anion gap [Moles/Vol] 12.3 mmol/L Normal [facility] Comment on above: Performed By: #### C MP, PHOS ####[facility] Zibeqnrmsy077[address] [place], [place] [address]Dr. Farhat Elvis AST [Catalytic activity/Vol] 53 U/L Critically high 15-37 [facility] Comment on above: Performed By: #### C CARA, PHOS ####[facility] Pfcgywztbm960[address] [place], [place] [address]Dr. Farhat Leal Bilirubin [Mass/Vol] 0.6 mg/dL Normal 0.2-1.0 [facility] Comment on above: Performed By: #### C CARA, PHOS ####[facility] Kmlztzqmwj140[address] [place], [place] [address]Dr. Farhat Elvis Calcium [Mass/Vol] 8.0 mg/dL Critically low 8.5-10.1 [facility] Comment on above: Performed By: #### C CARA, PHOS ####[facility] Jfzcowyaip[address] [place], [place] [address]Dr. Farhat Leal Chloride [Moles/Vol] 97 mmol/L Critically low 98-107 [facility] Comment on above: Performed By: #### C MP, PHOS ####[facility] Wkhxeusnlu[address] [place], [place] [address]Dr. Farhat Leal CO2 [Moles/Vol] 26.6 mmol/L Normal 21.0-32.0 [facility] Comment on above: Performed By: #### C MP, PHOS ####[facility] Ikqwtqiout135[address] [place], [place] [address]Dr. Farhat Leal Creatinine [Mass/Vol] 1.03 mg/dL Normal 0.70-1.30 [facility] Comment on above: Performed By: #### C MP, PHOS ####[facility] Xmtolybofr56[address] [place] [address]Dr. Farhat Leal EGFR-AF IRISH >60 Normal >=60 [facility] Comment on above: Performed By: #### C MP, PHOS ####[facility] Yxlqbcqebf7009 [place] [address]Dr. Farhat Leal EGFR-NON AF IRISH >60 Normal >=60 [facility] Comment on above: Performed By: #### C CARA, PHOS ####[facility] Lkvbcpkhvl7264[address] [place], [place] [address]Dr. Farhat Leal Globulin (S) [Mass/Vol] 3.7 g/dL Normal [facility] Comment on above: Performed By: #### C CARA, PHOS ####[facility] Elytkvsgjf112[address] [place], [place] [address]Dr. Farhat Leal Glucose [Mass/Vol] 287 mg/dL Critically high 74-106 [facility] Comment on above: Performed By: #### C CARA, PHOS ####[facility] Wojeegevtc839[address] [place], [place] [address]Dr. Farhat Leal Potassium [Moles/Vol] 3.9 mmol/L Normal 3.5-5.1 [facility] Comment on above: Performed By: #### C CARA, PHOS ####[facility] Yqqwpwaubv234[address] [place], [place] [address]Dr. Farhat Leal Protein [Mass/Vol] 5.8 g/dL Critically low 6.4-8.2 Th [facility] Comment on above: Performed By: #### C MP, PHOS ####[facility] Othcrjfkqs217[address] [place], [place] [address]Dr. Farhat Leal Sodium [Moles/Vol] 132 mmol/L Critically low 136-145 [facility] Comment on above: Performed By: #### C CARA, PHOS ####[facility] Yrmawbqgwe07[address] [place], [place] [address]Dr. Farhat Leal Urea nitrogen [Mass/Vol] 23.0 mg/dL Critically high 7.0-18.0 [facility] Comment on above: Performed By: #### C HENRI MARROQUIN ####[facility] Khrwzdtcld0594 [place] [address]Dr. Farhat Leal Urea nitrogen/Creatinine [Mass ratio] 22.3 mg/mg Normal [facility] Comment on above: Performed By: #### C ANA MARROQUINS ####[facility] Gedflwdovn68[address] [place], [place] [address]Dr. Farhat Leal FK506 (TACROLIMUS) WHOLE BLO ODon 01-21-2022 Tacrolimus (FK506), Blood 12.2 ng/mL Normal 2.0-20.0 [facility] Comment on above: Result Comment: Trou gh (immediately following transplant) 15.0 . Trough (steady state, 2 weeks or more after transplant): 3.0 - 8.0 . Performed by LC-MS/MS technology. Performed By: #### F K506T ####[facility] Nnvewwairy324[address] [place], [place] [address]Dr. Farhat Leal ACID FAST SMEAR AND CXon Acid Fast Culture Negative Normal [facility] Comment on above: Result Comment: No a abdiel fast bacilli isolated after 6 weeks. Performed By: #### A FB ####[facility] Qhmheegxaw897[address] [place], [place] [address]Dr. Farhat Leal Acid Fast Smear Negative Normal [facility] Comment on above: Performed By: #### A FB ####[facility] Wfzefhwldj4[address] [place], [place] [address]Dr. Farhat Leal AF[employer] Specimen Processing Tissue Grinding Normal [facility] Comment on above: Performed By: #### A FB ####[facility] Vgpyynbaiv4[address] [place], [place] [address]Dr. Farhat Leal PROF 14(COMP METB)on 022 Albumin [Mass/Vol] 1.9 g/dL Critically low 3.4-5.0 [facility] Comment on above: Performed By: #### C MP ####[facility] Fpyeeshowl49[address] [place] [address]Dr. Farhat Leal Albumin/Globulin [Mass ratio] 0.5 {ratio} Normal [facility] Comment on above: Performed By: #### C MP ####[facility] Yuvwgupiqy6[address] [place], [place] [address]Dr. Farhat Leal ALP [Catalytic activity/Vol] 78 U/L Normal 46-116 [facility] Comment on above: Performed By: #### C MP ####[facility] Sbyiwrxwpc80[address] [place], [place] [address]Dr. Farhat Leal ALT [Catalytic activity/Vol] 22 U/L Normal 16-63 [facility] Comment on above: Performed By: #### C MP ####[facility] Bkbdlnofcl170[address] [place], [place] [address]Dr. Farhat Leal Anion gap [Moles/Vol] 8.0 mmol/L Normal [facility] Comment on above: Performed By: #### C MP ####[facility] Zalxxjctby626[address] [place], [place] [address]Dr. Farhat Leal AST [Catalytic activity/Vol] 92 U/L Critically high 15-37 [facility] Comment on above: Performed By: #### C MP ####[facility] Yxdwbhdkoa313[address] [place], [place] [address]Dr. Farhat Leal Bilirubin [Mass/Vol] 0.7 mg/dL Normal 0.2-1.0 [facility] Comment on above: Performed By: #### C MP ####[facility] Xkrnjpjomi6[address] [place], [place] [address]Dr. Farhat Leal Calcium [Mass/Vol] 7.8 mg/dL Critically low 8.5-10.1 [facility] Comment on above: Performed By: #### C MP ####[facility] Zqefrrubbg9[address] [place], [place] [address]Dr. Frahat Leal Chloride [Moles/Vol] 99 mmol/L Normal 98-107 [facility] Comment on above: Performed By: #### C MP ####[facility] Abieeqzvwl073[address] [place], [place] [address]Dr. Farhat Leal CO2 [Moles/Vol] 30.9 mmol/L Normal 21.0-32.0 [facility] Comment on above: Performed By: #### C MP ####[facility] Kcfdvzsyrk35[address] [place] [address]Dr. Farhat Elvis Creatinine [Mass/Vol] 0.95 mg/dL Normal 0.70-1.30 [facility] Comment on above: Performed By: #### C MP ####[facility] Vvijqdqpus67[address] [place] [address]Dr. Farhat Elvis EGFR-AF IRISH >60 Normal >=60 [facility] Comment on above: Performed By: #### C MP ####[facility] Ygegpzwrwh[address] [place], [place] [address]Dr. Farhat Elvis EGFR-NON AF IRISH >60 Normal >=60 [facility] Comment on above: Performed By: #### C MP ####[facility] Ekzfndyfpa[address] [place], [place] [address]Dr. Farhat Elvis Globulin (S) [Mass/Vol] 3.9 g/dL Normal [facility] Comment on above: Performed By: #### C MP ####[facility] Nhtunecoqn170[address] [place], [place] [address]Dr. Farhat Elvis Glucose [Mass/Vol] 124 mg/dL Critically high 74-106 [facility] Comment on above: Performed By: #### C MP ####[facility] Dpwzpfqqhl49[address] [place], [place] [address]Dr. Farhat Elvis Potassium [Moles/Vol] 5.9 mmol/L Critically high 3.5-5.1 [facility] Comment on above: Performed By: #### C MP ####[facility] Vczfcfzgdj[address] [place], [place] [address]Dr. Farhat Leal Protein [Mass/Vol] 5.8 g/dL Critically low 6.4-8.2 [facility] Comment on above: Performed By: #### C MP ####[facility] Dhsdlgesek[address] [place], [place] [address]Dr. Farhat Leal Sodium [Moles/Vol] 132 mmol/L Critically low 136-145 Th [facility] Comment on above: Performed By: #### C MP ####[facility] Lodxmxvbqc3206 [place] [address]Dr. Madelynlorri Leal Urea nitrogen [Mass/Vol] 18.0 mg/dL Normal 7.0-18.0 [facility] Comment on above: Performed By: #### C MP ####[facility] Wrcokwhvpi3923 [place] [address]Dr. Farhat Leal Urea nitrogen/Creatinine [Mass ratio] 18.9 mg/mg Normal [facility] Comment on above: Performed By: #### C MP ####[facility] Tsqcsreivq176[address] [place], [place] [address]Dr. Farhat Leal INR (POC)on 01-12-2022 INR Coag (PPP) [Relative time] 2.6 {INR} High 0.8 - 1.2 [facility] Internal Quality Check Acceptable Cl [facility] ACID FAST SMEAR AND CXon Acid Fast Culture Negative Normal [facility] Comment on above: Result Comment: No a abdiel fast bacilli isolated after 6 weeks. Performed By: #### A FB ####[facility] Wdfswupowu106[address] [place], [place] [address]Dr. Farhat Leal Acid Fast Smear Negative Normal [facility] Comment on above: Performed By: #### A FB ####[facility] Zaytgyrjfg[address] [place], [place] [address]Dr. Farhat Leal AF[employer] Specimen Processing Direct Inoculation Normal [facility] Comment on above: Performed By: #### A FB ####[facility] [address] [place], [place] [address]Dr. Farhat Leal ACID FAST SMEAR AND CXon Acid Fast Culture Negative Normal [facility] Comment on above: Result Comment: No a abdiel fast bacilli isolated after 6 weeks. Performed By: #### A FB ####[facility] Ygqtipgxxk[address] [place], [place] [address]Dr. Farhat Leal Acid Fast Smear Negative Normal [facility] Comment on above: Performed By: #### A FB ####[facility] Vjgrhmabqt3090 [place] [id number]. Farhat Leal AF[employer] Specimen Processing Tissue Grinding Normal [facility] Comment on above: Performed By: #### A FB ####[facility] Emjfnxcufy55[address] [place] [address]Dr. Farhat Leal FUNGAL CULTUREon 01-02-2022 Fungus (Mycology) Culture Final report Normal [facility] Comment on above: Performed By: #### C XFUN ####[facility] Bplqyamjum[address] [place] [address]Dr. Farhat Leal Fungus Stain Final report Normal [facility] Comment on above: Performed By: #### C XFUN ####[facility] Ravlpfytnc[address] [place], [place] [address]Dr. Farhat Leal Result 1 Comment Normal [facility] Comment on above: Result Comment: ANNI/ Calcofluor preparation: no fungus observed. Performed By: #### C XFUN ####[facility] Ltmapiwhjq74[address] [place], [place] [address]Dr. Farhat Leal Result Comment: No y east or mold isolated after 4 weeks. FK506 (TACROLIMUS) WHOLE BLO ODon 12-31-2021 Tacrolimus (FK506), Blood 7.7 ng/mL Normal 2.0-20.0 [facility] Comment on above: Result Comment: Trou gh (immediately following transplant) 15.0 . Trough (steady state, 2 weeks or more after transplant): 3.0 - 8.0 . Performed by LC-MS/MS technology. Performed By: #### F K506T ####[facility] Zqlpwuquiv[address] [place], [place] [address]Dr. Farhat Leal HEMOGRAM AND PLATELon 2021 Hematocrit (Bld) [Volume fraction] 27.1 % Critically low 42.0-54.0 [facility] Comment on above: Performed By: #### H H ####[facility] Ljhhfthikm[address] [place], [place] [address]Dr. Farhat Leal Hemoglobin (Bld) [Mass/Vol] 8.7 g/dL Critically low 14.0-18.0 [facility] Comment on above: Performed By: #### H H ####[facility] Yuimhmjybl1247 [place] [id number]. Farhat Leal MCH (RBC) [Entitic mass] 30.3 pg Normal 25.9-34.0 [facility] Comment on above: Performed By: #### H H ####[facility] Leoiopowqs0437 [place] [id number] Farhat Leal MCHC (RBC) [Mass/Vol] 32.1 g/dL Normal 29.9-35.2 [facility] Comment on above: Performed By: #### H H ####[facility] Rmmceueebb8126 [place] [id number] Farhat Leal MCV (RBC) [Entitic vol] 94.4 fL Critically high 80.0-94.0 [facility] Comment on above: Performed By: #### H H ####[facility] Eyuhcowebt4[address] [place] [address]DrSkylar Farhat Leal PLT 355 103/ul Normal 150-450 [facility] Comment on above: Performed By: #### H H ####[facility] Soyvbimaqb3149 [place] [id number]. Farhat Leal RBC 2.87 106/ul Critically low 4.70-6.10 [facility] Comment on above: Performed By: #### H H ####[facility] Mnynjpbtmb0345 [place] [id number] Farhat Leal WBC 6.0 103/ul Normal 4.0-11.0 [facility] Comment on above: Performed By: #### H H ####[facility] Lkvucgubgs85[address] [place] [id number] Farhat Elvis PHOSPHORUSon 12-29-2021 Phosphate [Mass/Vol] 2.5 mg/dL Critically low 2.6-4.7 [facility] Comment on above: Performed By: #### P HOS, CMP ####[facility] Ohsdnetfap2608 [place] [id number] Leal PROF 14(COMP METB)on 11-14-2 022 Albumin [Mass/Vol] 1.7 g/dL Critically low 3.4-5.0 [facility] Comment on above: Performed By: #### P HOS, CMP ####[facility] Wemblaevui[address] [place] [address]Dr. Farhat Leal Albumin/Globulin [Mass ratio] 0.5 {ratio} Normal [facility] Comment on above: Performed By: #### P HOS, CMP ####[facility] Glbbxkixxd18[address] [place] [address]Dr. Farhat Leal ALP [Catalytic activity/Vol] 78 U/L Normal 46-116 [facility] Comment on above: Performed By: #### P HOS, CMP ####[facility] [address] [place], [place] [address]Dr. Farhat Leal ALT [Catalytic activity/Vol] 12 U/L Critically low 16-63 [facility] Comment on above: Performed By: #### P HOS, CMP ####[facility] Fggtqzrrea0[address] [place], [place] [address]Dr. Farhat Leal Anion gap [Moles/Vol] 5.1 mmol/L Normal [facility] Comment on above: Performed By: #### P HOS, CMP ####[facility] Koctyfsnoe13[address] [place], [place] [address]Dr. Farhat Leal AST [Catalytic activity/Vol] 22 U/L Normal 15-37 [facility] Comment on above: Performed By: #### P HOS, CMP ####[facility] Yhbfcgadzo357[address] [place], [place] [address]Dr. Farhat Leal Bilirubin [Mass/Vol] 0.6 mg/dL Normal 0.2-1.0 [facility] Comment on above: Performed By: #### P HOS, CMP ####[facility] Svvfwjbgrk23[address] [place], [place] [address]Dr. Farhat Leal Calcium [Mass/Vol] 8.1 mg/dL Critically low 8.5-10.1 Th [facility] Comment on above: Performed By: #### P HOS, CMP ####[facility] Vquwsptpsu[address] [place], [place] [address]Dr. Farhat Leal Chloride [Moles/Vol] 100 mmol/L Normal 98-107 [facility] Comment on above: Performed By: #### P HOS, CMP ####[facility] Rmmiriorpd24[address] [place], [place] [address]Dr. Farhat Leal CO2 [Moles/Vol] 34.2 mmol/L Critically high 21.0-32.0 [facility] Comment on above: Performed By: #### P HOS, CMP ####[facility] Ouqnhvdivb65[address] [place], [place] [address]Dr. Madelynlorri Leal Creatinine [Mass/Vol] 0.92 mg/dL Normal 0.70-1.30 [facility] Comment on above: Performed By: #### P HOS, CMP ####[facility] Lsxthvaxnb3387[address] [place], [place] [address]Dr. Madelynlorri Elvis EGFR-AF IRISH >60 Normal >=60 The [facility] Comment on above: Performed By: #### P HOS, CMP ####[facility] Bkklpcaeuh9438[address] [place], [place] [address]Dr. Madelynlorri Elvis EGFR-NON AF IRISH >60 Normal >=60 [facility] Comment on above: Performed By: #### P HOS, CMP ####[facility] Nstfxguvtm8490[address] [place], [place] [address]Dr. Farhat Leal Globulin (S) [Mass/Vol] 3.3 g/dL Normal [facility] Comment on above: Performed By: #### P HOS, CMP ####[facility] Oytjeorefi6780[address] [place], [place] [address]Dr. Madelynlorri Elvis Glucose [Mass/Vol] 116 mg/dL Critically high 74-106 [facility] Comment on above: Performed By: #### P HOS, CMP ####[facility] Odqqyeqdfv832[address] [place], [place] [address]Dr. Farhat Leal Potassium [Moles/Vol] 3.3 mmol/L Critically low 3.5-5.1 [facility] Comment on above: Performed By: #### P HOS, CMP ####[facility] Qujzcqohen26[address] [place], [place] [address]Dr. Farhat Leal Protein [Mass/Vol] 5.0 g/dL Critically low 6.4-8.2 Th e [facility] Comment on above: Performed By: #### P HOS, CMP ####[facility] Xavpsurayv[address] [place] [address]Dr. Farhat Leal Sodium [Moles/Vol] 136 mmol/L Normal 136-145 [facility] Comment on above: Performed By: #### P HOS, CMP ####[facility] Gdyhaxrhek9620[address] [place], [place] [address]Dr. Farhat Leal Urea nitrogen [Mass/Vol] 14.0 mg/dL Normal 7.0-18.0 [facility] Comment on above: Performed By: #### P HOS, CMP ####[facility] Ukprvxrduq9187[address] [place], [place] [address]Dr. aFrhat Leal Urea nitrogen/Creatinine [Mass ratio] 15.2 mg/mg Normal [facility] Comment on above: Performed By: #### P HOS, CMP ####[facility] Vkzcqawmjz882[address] [place], [place] [address]Dr. Farhat Leal PROTIMEon 12-29-2021 INR Coag (PPP) [Relative time] 1.26 {INR} Normal [facility] Comment on above: Performed By: #### P T ####[facility] Sbixvdfjnu60[address] [place], [place] [address]Dr. Farhat Leal INR GUIDELINES SEE BELOW Normal The [facility] Comment on above: Result Comment: MALINA RED INR: 2.0 - 3.0 CONDITIONS NOT LISTED BELOW 2.5 - 3.5 FOR PROSTHETIC HEART VALVE REPLACEMENT 2.5 - 3.5 RECURRENT THROMBOSIS Performed By: #### P T ####[facility] Kyybrfefks6257[address] [place], [place] [address]Dr. Farhat Leal PT Coag (PPP) [Time] 13.4 s Critically high 9.0-11.6 [facility] Comment on above: Performed By: #### P T ####[facility] Xrggkvufco5436[address] [place], [place] [address]Dr. Farhat Leal XR MODIFIED BARIUM SWALLOWon 12-25-2021 XR MODIFIED BARIUM SWALLOW Normal [facility] FUNGAL CULTUREon 12-24-2021 Fungus (Mycology) Culture Final report Normal [facility] Comment on above: Performed By: #### C XFUN ####[facility] Ghnzardypb[address] [place], [place] [address]Dr. Farhat Leal Fungus Stain Final report Normal [facility] Comment on above: Performed By: #### C XFUN ####[facility] Psrwazpozi[address] [place], [place] [address]Dr. Farhat Leal Result 1 Comment Normal [facility] Comment on above: Result Comment: ANNI/ Calcofluor preparation: no fungus observed. Performed By: #### C XFUN ####[facility] Mzrnyiqewk716[address] [place], [place] [address]Dr. Farhat Leal Result Comment: No y east or mold isolated after 4 weeks. VANCOMYCIN TROUGHon 12-21-19 VANCOMYCIN TROUGH 14.4 ug/ml Normal 5.0-20.0 [facility] Comment on above: Performed By: #### V ANCT ####[facility] Ioqdejvjwk[address] [place], [place] [address]Dr. Farhat Leal CBC AUTO DIFFon 12-14-2021 BASO # 0.0 103/ul Normal 0.0-0.1 [facility] Comment on above: Performed By: #### C BC ####[facility] Cuuhubnqxh[address] [place], [place] [address]Dr. Farhat Leal Basophils/100 WBC (Bld) 0.2 % Normal 0.2-2.0 [facility] Comment on above: Performed By: #### C BC ####[facility] Ssfjbwipjt216[address] [place], [place] [address]Dr. Farhat Leal EO # 0.2 103/ul Normal 0.0-0.7 [facility] Comment on above: Performed By: #### C BC ####[facility] Ngexlpnpef487[address] [place], [place] [address]Dr. Farhat Leal Eosinophils/100 WBC (Bld) 2.1 % Normal 0.9-7.0 [facility] Comment on above: Performed By: #### C BC ####[facility] Wymprltqwz[address] [place] [address]Dr. Farhat Leal Erythrocyte distribution width (RBC) [Ratio] 18.2 % Critically high 11.0-15.0 [facility] Comment on above: Performed By: #### C BC ####[facility] Vdegoaqlpp6122 [place] [address]Dr. Farhat Leal Hematocrit (Bld) [Volume fraction] 25.8 % Critically low 42.0-54.0 [facility] Comment on above: Performed By: #### C BC ####[facility] Abofwlgsdn1569[address] [place], [place] [address]Dr. Farhat Leal Hemoglobin (Bld) [Mass/Vol] 8.0 g/dL Critically low 14.0-18.0 [facility] Comment on above: Performed By: #### C BC ####[facility] Ysnyyfihsu[address] [place], [place] [address]Dr. Farhat Elvis IG # 0.08 10e3/ul Critically high 0.00-0.03 [facility] Comment on above: Performed By: #### C BC ####[facility] Umjetnosqq1134[address] [place], [place] [address]Dr. Farhat Elvis IG % 0.7 % Critically high 0.0-0.5 [facility] Comment on above: Performed By: #### C BC ####[facility] Wunzxpenhl0318[address] [place], [place] [address]Dr. Farhat Elvis LYMPH # 0.9 103/ul Critically low 1.2-3.8 [facility] Comment on above: Performed By: #### C BC ####[facility] Qnwjuwkqfo536[address] [place], [place] [address]Dr. Farhat Elvis Lymphocytes/100 WBC (Bld) 8.7 % Critically low 20.5-60.0 [facility] Comment on above: Performed By: #### C BC ####[facility] Kjkqnmwval[address] [place], [place] [address]Dr. Madelynlorri Leal MANUAL DIFF REQ NO Normal [facility] Comment on above: Performed By: #### C BC ####[facility] Qsufmautlk9522 [place] [id number]. Farhat Leal MCH (RBC) [Entitic mass] 30.0 pg Normal 25.9-34.0 [facility] Comment on above: Performed By: #### C BC ####[facility] Uryaeiomah1605 [place] [id number]. Farhat Leal MCHC (RBC) [Mass/Vol] 31.0 g/dL Normal 29.9-35.2 [facility] Comment on above: Performed By: #### C BC ####[facility] Bxpqdgpysj1609 [place] [address]Dr. Farhat Elvis MCV (RBC) [Entitic vol] 96.6 fL Critically high 80.0-94.0 [facility] Comment on above: Performed By: #### C BC ####[facility] Vsshuxwskn[address] [place], [place] [address]Dr. Farhat Leal MONO # 0.7 103/ul Normal 0.3-0.8 [facility] Comment on above: Performed By: #### C BC ####[facility] Rvoavumvid4[address] [place], [place] [address]Dr. Madelynlorri Leal Monocytes/100 WBC (Bld) 6.7 % Normal 1.7-12.0 [facility] Comment on above: Performed By: #### C BC ####[facility] Bxudeiwrla[address] [place], [place] [address]Dr. Madelynlorri Leal NEUT # 8.8 103/ul Critically high 1.4-6.5 The [facility] Comment on above: Performed By: #### C BC ####[facility] Afgxkqxtiq20[address] [place], [place] [address]Dr. Madelynlorri Leal Neutrophils/100 WBC (Bld) 81.6 % Critically high 43.0-75.0 [facility] Comment on above: Performed By: #### C BC ####[facility] Pwfioxdgav67[address] [place] [address]Dr. Farhat Leal Platelet mean volume (Bld) [Entitic vol] 10.5 fL Normal 9.5-13.5 [facility] Comment on above: Performed By: #### C BC ####[facility] Xrdxodgofn9038 [place] [id number]. Madelynlorri Elvis PLT 285 103/ul Normal 150-450 [facility] Comment on above: Performed By: #### C BC ####[facility] Tteiemgigx6252 [place] [id number]. Madelynlorri Elvis RBC 2.67 106/ul Critically low 4.70-6.10 [facility] Comment on above: Performed By: #### C BC ####[facility] Dzdpxidezr5293 [place] [id number]. Farhat Leal WBC 10.7 103/ul Normal 4.0-11.0 [facility] Comment on above: Performed By: #### C BC ####[facility] Yhawinhvqs1871 [place] [address]Dr. Farhat Leal PROF CHEM 8 (BAS METB)on Anion gap [Moles/Vol] 12.4 mmol/L Normal [facility] Comment on above: Performed By: #### B MP ####[facility] Dkabrzmoui8[address] [place], [place] [address]Dr. Farhat Leal Calcium [Mass/Vol] 7.8 mg/dL Critically low 8.5-10.1 [facility] Comment on above: Performed By: #### B MP ####[facility] Eftbupptbo[address] [place] [address]Dr. Farhat Leal Chloride [Moles/Vol] 102 mmol/L Normal 98-107 [facility] Comment on above: Performed By: #### B MP ####[facility] Wdeaphbjhk3561 [place] [id number]. Farhat Leal CO2 [Moles/Vol] 28.1 mmol/L Normal 21.0-32.0 [facility] Comment on above: Performed By: #### B MP ####[facility] Fiogljkllm5469 [place] [phone]. Farhat Leal Creatinine [Mass/Vol] 1.24 mg/dL Normal 0.70-1.30 [facility] Comment on above: Performed By: #### B MP ####[facility] Hgjbpaonuj4356 [place] [phone]. Madelynlorri Elvis EGFR-AF IRISH >60 Normal >=60 [facility] Comment on above: Performed By: #### B MP ####[facility] Cfpsharupm4550 [place] [id number]. Madelynlorri Elvis EGFR-NON AF IRISH 57 mL/min/1.73m2 Critically low >=60 [facility] Comment on above: Performed By: #### B MP ####[facility] Nlmbzonkrw5607 [place] [phone]. Farhat Leal Glucose [Mass/Vol] 296 mg/dL Critically high 74-106 [facility] Comment on above: Performed By: #### B MP ####[facility] Yzzxcmqscg0985 [place] [address]Dr. Faraht Leal Potassium [Moles/Vol] 3.5 mmol/L Normal 3.5-5.1 [facility] Comment on above: Performed By: #### B MP ####[facility] Qoexjnvsag3656 [place] [address]Dr. Farhat Leal Sodium [Moles/Vol] 139 mmol/L Normal 136-145 [facility] Comment on above: Performed By: #### B MP ####[facility] Ndwleguism0398 [place] [phone]. Farhat Leal Urea nitrogen [Mass/Vol] 27.0 mg/dL Critically high 7.0-18.0 [facility] Comment on above: Performed By: #### B MP ####[facility] Uwmokruhjd036[address] [place] [phone]. Farhat Leal Urea nitrogen/Creatinine [Mass ratio] 21.8 mg/mg Normal [facility] Comment on above: Performed By: #### B MP ####[facility] Pyqyrwquzm[address] [place] [address]Dr. Farhat Leal PROTIMEon 12-14-2021 INR Coag (PPP) [Relative time] 3.36 {INR} Normal [facility] Comment on above: Performed By: #### P T ####[facility] Hyhmjusyxb[address] [place] [phone]. Farhat Leal INR GUIDELINES SEE BELOW Normal The [facility] Comment on above: Result Comment: MALINA RED INR: 2.0 - 3.0 CONDITIONS NOT LISTED BELOW 2.5 - 3.5 FOR PROSTHETIC HEART VALVE REPLACEMENT 2.5 - 3.5 RECURRENT THROMBOSIS Performed By: #### P T ####[facility] Dpognoimfu44[address] [place] [address]Dr. Fahrat Leal PT Coag (PPP) [Time] 33.5 s Critically high 9.0-11.6 [facility] Comment on above: Performed By: #### P T ####[facility] Jtsowqcbsk[address] [place] [address]Dr. Farhat Leal XR CHEST 1 Von 12-14-2021 XR CHEST 1 V Normal [facility] No Panel Informationon 12-01 BLANK _ [facility] Implant Date 04/22/2012 [facility] CHECKon AMS Duration (ms) [address] [facility] AMS Fallback Rate (bpm) DDIR [facility] AV Delay Adaptive Paced Minimum (ms) 300 ms [facility] AV Delay Adaptive Rate Maximum (bpm) 130 {beats}/min [facility] AV Delay Adaptive Rate Minimum (bpm) 70 {beats}/min [facility] AV Delay Adaptive Sensed Minimum (ms) 300 ms [facility] AV Delay Paced (ms) 300 ms [facility] AV Delay Sensed (ms) 300 ms [facility] Jaciel LV Pacing Polarity Unknown [facility] Jaciel LV Sensing Polarity Unknown [facility] Jaciel RA Pacing Amplitude (volts) 2.4 V [facility] Jaciel RA Pacing Polarity BI [facility] Jaciel RA Pacing Pulse Width (ms) 0.4 ms [facility] Jaciel RA Sensing Amplitude (mvolts) AUTO [facility] Jaciel RA Sensing Blanking Period (ms) 56 ms [facility] Jaciel RA Sensing Polarity BI [facility] Jaicel RA Sensing Refractory Period (ms) AUTO [facility] Jaciel RV Pacing Amplitude (volts) 3.4 V [facility] Jaciel RV Pacing Polarity BI [facility] Jaciel RV Pacing Pulse Width (ms) 0.4 ms [facility] Jaciel RV Sensing Amplitude (mvolts) AUTO [facility] Jaciel RV Sensing Blanking Period (ms) 30 ms [facility] Jaciel RV Sensing Polarity BI [facility] Jaciel RV Sensing Refractory Period (ms) 250 ms [facility] Hysteresis Rate (bpm) 60 {beats}/min [facility] Lead1 Mfg SUZETTE [facility] Lead2 Mfg SUZETTE [facility] Location RA [facility] Location RV [facility] Lower Rate (bpm) 60 {beats}/min [facility] Max Sensor Rate (bmp) 130 {beats}/min [facility] Model 372075 Monika CORTEZ [facility] Model 434530 [facility] Model 384120 [facility] Pacemaker Dependent? NO [facility] PM-Device Mfg BIO [facility] PM-PMT Intervention ON [facility] PM-PVC Intervention ON [facility] PM-Rate Modulation Acceleration Reaction 4 s [facility] PM-Rate Modulation Deceleration 0.5 m [facility] PM-Rate Modulation Dundy 23 [facility] PM-Rate Modulation Threshold Medium [facility] RA Bipolar Impedance ohms 448 ohm [facility] Rhythm AF with controlled ventricular rate. [facility] RV Bipolar Impedance ohms 390 ohm [facility] Serial Number [id number] [facility] Serial Number [id number] [facility] Serial Number [id number] [facility] Thresh RA Sensing Amplitude (mvolts) 2.4 mV [facility] Thresh RV Capture Amplitude (volts) 1.8 V [facility] Thresh RV Capture Duration (ms) 0.4 ms [facility] Thresh RV Sensing Amplitude (mvolts) 2.4 mV [facility] Tracking Rate (bpm) 160 {beats}/min [facility] BNPon 11-28-2021 Natriuretic peptide B (Bld) [Mass/Vol] 16333.0 pg/mL Critically high <=1,800.0 [facility] Comment on above: Performed By: #### C MP, BNP, CRP ####[facility] Dtmuwubdyr[address] [place] [address]DrSkylar Leal CBC AUTO DIFFon 11-28-2021 BASO # 0.0 103/ul Normal 0.0-0.1 [facility] Comment on above: Performed By: #### C BC ####[facility] Pnsteoigfi4152 [place] [id number]. Farhat Leal Basophils/100 WBC (Bld) 0.3 % Normal 0.2-2.0 [facility] Comment on above: Performed By: #### C BC ####[facility] Iskckxeono6484 [place] [phone]. Farhat Leal EO # 0.1 103/ul Normal 0.0-0.7 [facility] Comment on above: Performed By: #### C BC ####[facility] [address]be[address] [place], [place] [address]Dr. Farhat Leal Eosinophils/100 WBC (Bld) 1.0 % Normal 0.9-7.0 [facility] Comment on above: Performed By: #### C BC ####[facility] Hkanedeuzu[address] [place], [place] [address]Dr. Farhat Leal Erythrocyte distribution width (RBC) [Ratio] 14.0 % Normal 11.0-15.0 [facility] Comment on above: Performed By: #### C BC ####[facility] Tpgkvpnqdv2792 [place] [phone]. Farhat Leal Hematocrit (Bld) [Volume fraction] 27.6 % Critically low 42.0-54.0 [facility] Comment on above: Performed By: #### C BC ####[facility] Nqjlplzmul3895 [place] [id number]. Farhat Leal Hemoglobin (Bld) [Mass/Vol] 9.0 g/dL Critically low 14.0-18.0 [facility] Comment on above: Performed By: #### C BC ####[facility] Zosllvzyve8654 [place] [phone]. Farhat Leal IG # 0.12 10e3/ul Critically high 0.00-0.03 [facility] Comment on above: Performed By: #### C BC ####[facility] [address] [place], [place] [address]Dr. Farhat Leal IG % 1.0 % Critically high 0.0-0.5 [facility] Comment on above: Performed By: #### C BC ####[facility] Klhbtiwjcw6373 [place] [phone]. Farhat Elvis LYMPH # 1.2 103/ul Normal 1.2-3.8 [facility] Comment on above: Performed By: #### C BC ####[facility] Hckmsttsjy8040 [place], [place] [address]Xd. Farhat Elvis Lymphocytes/100 WBC (Bld) 9.9 % Critically low 20.5-60.0 [facility] Comment on above: Performed By: #### C BC ####[facility] Glgjbaydpq7441 [place] [id number]. Farhat Leal MANUAL DIFF REQ NO Normal [facility] Comment on above: Performed By: #### C BC ####[facility] Odbxftdhwg5783 [place] [phone]. Farhat Elvis MCH (RBC) [Entitic mass] 30.0 pg Normal 25.9-34.0 [facility] Comment on above: Performed By: #### C BC ####[facility] Qjshsimsuf3622 [place] [id number]. Farhat Leal MCHC (RBC) [Mass/Vol] 32.6 g/dL Normal 29.9-35.2 [facility] Comment on above: Performed By: #### C BC ####[facility] Utyamazsbl0961 [place] [id number]. Farhat Leal MCV (RBC) [Entitic vol] 92.0 fL Normal 80.0-94.0 [facility] Comment on above: Performed By: #### C BC ####[facility] Bjjpjjivrn0835 [place] [id number]. Farhat Elvis MONO # 1.1 103/ul Critically high 0.3-0.8 [facility] Comment on above: Performed By: #### C BC ####[facility] Hulqnsetom3152 [place] [id number]. Farhat Leal Monocytes/100 WBC (Bld) 9.3 % Normal 1.7-12.0 [facility] Comment on above: Performed By: #### C BC ####[facility] Nctgzglavf6104 [place], [place] [address]Is. Farhat Leal NEUT # 9.3 103/ul Critically high 1.4-6.5 [facility] Comment on above: Performed By: #### C BC ####[facility] Uwywbiflyw9510 [place] [id number]. Farhat Leal Neutrophils/100 WBC (Bld) 78.5 % Critically high 43.0-75.0 [facility] Comment on above: Performed By: #### C BC ####[facility] Qnqghdlpvx8466 [place] [phone]. Farhat Leal Platelet mean volume (Bld) [Entitic vol] 9.6 fL Normal 9.5-13.5 [facility] Comment on above: Performed By: #### C BC ####[facility] Zwyoukzxcx9133 [place] [id number]. Farhat Leal PLT 357 103/ul Normal 150-450 [facility] Comment on above: Performed By: #### C BC ####[facility] Argmjpuzwx2366 [place] [id number]. Farhat Leal RBC 3.00 106/ul Critically low 4.70-6.10 [facility] Comment on above: Performed By: #### C BC ####[facility] Hdqsfgwkuy9348 [place] [id number]. Farhat Leal WBC 11.8 103/ul Critically high 4.0-11.0 The [facility] Comment on above: Performed By: #### C BC ####[facility] Mmtjsyajpl7856 [place] [id number]. Farhat Leal CRPon 11-28-2021 CRP 20.9 mg/dL Critically high <=1.0 [facility] Comment on above: Performed By: #### C MP, BNP, CRP ####[facility] Tarqmetqrr4514 [place] [phone]. Farhat Leal CULTURE OTHERon 11-28-2021 CULTURE OTHER Normal [facility] Comment on above: Performed By: #### O THCX ####[facility] Faokgdnlrq04[address] [place] [address]Dr. Farhat Leal CULTURE OTHER Normal [facility] Comment on above: Performed By: #### O THCX ####[facility] Dvrmxsjpfa2116 [place] [address]Dr. Farhat Leal PROF 14(COMP METB)on 022 Albumin [Mass/Vol] 1.4 g/dL Critically low 3.4-5.0 [facility] Comment on above: Performed By: #### C MP, BNP, CRP ####[facility] Kamnttkpks[address] [place] [address]Dr. Farhat Leal Albumin/Globulin [Mass ratio] 0.4 {ratio} Normal [facility] Comment on above: Performed By: #### C MP, BNP, CRP ####[facility] Cmjxruosum6342 [place] [address]Dr. Farhat Leal ALP [Catalytic activity/Vol] 82 U/L Normal 46-116 [facility] Comment on above: Performed By: #### C MP, BNP, CRP ####[facility] Yexejylros9070 [place] [address]Dr. Farhat Leal ALT [Catalytic activity/Vol] 20 U/L Normal 16-63 [facility] Comment on above: Performed By: #### C MP, BNP, CRP ####[facility] Qelzdjhyem9798 [place] [address]Dr. Farhat Leal Anion gap [Moles/Vol] 13.0 mmol/L Normal [facility] Comment on above: Performed By: #### C MP, BNP, CRP ####[facility] Rqsyblmrqe2762 [place] [address]Dr. Farhat Leal AST [Catalytic activity/Vol] 33 U/L Normal 15-37 [facility] Comment on above: Performed By: #### C MP, BNP, CRP ####[facility] Ferotwyyjl8666 [place] [address]Dr. Farhat Leal Bilirubin [Mass/Vol] 0.7 mg/dL Normal 0.2-1.0 [facility] Comment on above: Performed By: #### C MP, BNP, CRP ####[facility] Srhsyqnrlq6585 [place] [address]Dr. Farhat Leal Calcium [Mass/Vol] 8.4 mg/dL Critically low 8.5-10.1 Th e [facility] Comment on above: Performed By: #### C MP, BNP, CRP ####[facility] H[address]uzwtvll[address] [place], [place] [address]Dr. Farhat Leal Chloride [Moles/Vol] 100 mmol/L Normal 98-107 [facility] Comment on above: Performed By: #### C MP, BNP, CRP ####[facility] Mdwofhrnyj[address] [place], [place] [address]Dr. Farhat Leal CO2 [Moles/Vol] 23.7 mmol/L Normal 21.0-32.0 The [facility] Comment on above: Performed By: #### C MP, BNP, CRP ####[facility] Wrkiebuvdz[address] [place], [place] [address]Dr. Farhat Leal Creatinine [Mass/Vol] 1.70 mg/dL Critically high 0.70-1.30 [facility] Comment on above: Performed By: #### C MP, BNP, CRP ####[facility] Gglfodswkt[address] [place], [place] [address]Dr. Farhat Leal EGFR-AF IRISH 48 mL/min/1.73m2 Critically low >=60 The [facility] Comment on above: Performed By: #### C MP, BNP, CRP ####[facility] Pqyjffharl[address] [place], [place] [address]Dr. Farhat Leal EGFR-NON AF IRISH 39 mL/min/1.73m2 Critically low >=60 The [facility] Comment on above: Performed By: #### C MP, BNP, CRP ####[facility] Vbpnghddss254[address] [place], [place] [address]Dr. Farhat Leal Globulin (S) [Mass/Vol] 3.6 g/dL Normal The [facility] Comment on above: Performed By: #### C MP, BNP, CRP ####[facility] Dnfbbogfvr39[address] [place] [address]Dr. Farhat Leal Glucose [Mass/Vol] 232 mg/dL Critically high 74-106 T [facility] Comment on above: Performed By: #### C MP, BNP, CRP ####[facility] Utpctbqdjh27[address] [place] [address]Dr. Farhat Leal Potassium [Moles/Vol] 3.7 mmol/L Normal 3.5-5.1 [facility] Comment on above: Performed By: #### C MP, BNP, CRP ####[facility] Hxgqhdmarh[address] [place], [place] [address]Dr. Farhat Leal Protein [Mass/Vol] 5.0 g/dL Critically low 6.4-8.2 Th [facility] Comment on above: Performed By: #### C MP, BNP, CRP ####[facility] Sxxvtbnxse[address] [place], [place] [address]Dr. Farhat Leal Sodium [Moles/Vol] 133 mmol/L Critically low 136-145 Th [facility] Comment on above: Performed By: #### C MP, BNP, CRP ####[facility] Expazfasvl23[address] [place], [place] [address]Dr. Farhat Leal Urea nitrogen [Mass/Vol] 52.0 mg/dL Critically high 7.0-18.0 [facility] Comment on above: Performed By: #### C MP, BNP, CRP ####[facility] Xdmpjduvvw[address] [place], [place] [address]Dr. Farhat Leal Urea nitrogen/Creatinine [Mass ratio] 30.6 mg/mg [facility] Comment on above: Performed By: #### C MP, BNP, CRP ####[facility] Kcsuepgkzo[address] [place], [place] [address]Dr. Farhat Leal PROTIMEon 11-28-2021 INR Coag (PPP) [Relative time] 1.29 {INR} Normal [facility] Comment on above: Performed By: #### P T ####[facility] Ydexdwbhcg[address] [place], [place] [address]Dr. Farhat Leal INR GUIDELINES SEE BELOW Normal [facility] Comment on above: Result Comment: MALINA RED INR: 2.0 - 3.0 CONDITIONS NOT LISTED BELOW 2.5 - 3.5 FOR PROSTHETIC HEART VALVE REPLACEMENT 2.5 - 3.5 RECURRENT THROMBOSIS Performed By: #### P T ####[facility] Zlemnraolv[address] [place], [place] [address]Dr. Farhat Leal PT Coag (PPP) [Time] 13.7 s Critically high 9.0-11.6 The [facility] Comment on above: Performed By: #### P T ####[facility] Ouwxuufnqk[address] [place], [place] [address]Dr. Farhat Leal SED RATE WESTERGREN 2021 SED RATE 77 mm/hr Critically high <=20 The [facility] Comment on above: Performed By: #### S EDR ####[facility] Vezdvcnxhk69[address] [place], [place] [address]Dr. Farhat Leal XR CHEST 2 Von 11-28-2021 XR CHEST 2 V Normal [facility] BNPon 11-27-2021 Natriuretic peptide B (Bld) [Mass/Vol] 33532.0 pg/mL Critically high <=1,800.0 The [facility] Comment on above: Performed By: #### B CLINICAL TECH, CMP, CRP ####[facility] Ppzbuzetdi6[address] [place], [place] [address]Dr. Farhat Leal CBC AUTO DIFFon 11-27-2021 BASO # 0.0 103/ul Normal 0.0-0.1 The [facility] Comment on above: Performed By: #### C BC ####[facility] Ynzprmctce[address] [place], [place] [address]Dr. Farhat Leal Basophils/100 WBC (Bld) 0.2 % Normal 0.2-2.0 The [facility] Comment on above: Performed By: #### C BC ####[facility] Aajldipqus[address] [place], [place] [address]Dr. Farhat Leal EO # 0.2 103/ul Normal 0.0-0.7 The [facility] Comment on above: Performed By: #### C BC ####[facility] Nxkqykylxc[address] [place], [place] [address]Dr. Farhat Leal Eosinophils/100 WBC (Bld) 1.9 % Normal 0.9-7.0 The [facility] Comment on above: Performed By: #### C BC ####[facility] Pjstxlebld78[address] [place] [address]Dr. Farhat Leal Erythrocyte distribution width (RBC) [Ratio] 13.9 % Normal 11.0-15.0 The [facility] Comment on above: Performed By: #### C BC ####[facility] Jroarrmxru8604 [place] [address]Dr. Farhat Leal Hematocrit (Bld) [Volume fraction] 28.7 % Critically low 42.0-54.0 The [facility] Comment on above: Performed By: #### C BC ####[facility] Qvgfkhusfe96[address] [place] [address]Dr. Farhat Leal Hemoglobin (Bld) [Mass/Vol] 9.3 g/dL Critically low 14.0-18.0 The [facility] Comment on above: Performed By: #### C BC ####[facility] Sccfjarlqo12[address] [place] [address]Dr. Farhat Leal IG # 0.14 10e3/ul Critically high 0.00-0.03 [facility] Comment on above: Performed By: #### C BC ####[facility] Yemaeqmjrd075[address] [place] [address]Dr. Farhat Leal IG % 1.2 % Critically high 0.0-0.5 The [facility] Comment on above: Performed By: #### C BC ####[facility] Itpyjenxhg3111 [place] [address]Dr. Farhat Leal LYMPH # 1.1 103/ul Critically low 1.2-3.8 The [facility] Comment on above: Performed By: #### C BC ####[facility] Jxbiukrbwl60[address] [place] [address]Dr. Farhat Leal Lymphocytes/100 WBC (Bld) 9.4 % Critically low 20.5-60.0 The [facility] Comment on above: Performed By: #### C BC ####[facility] Qjbchwplia0324 [place] [id number]. Farhat Leal MANUAL DIFF REQ NO Normal The [facility] Comment on above: Performed By: #### C BC ####[facility] Bxuywcpmpw48[address] [place] [id number]. Farhat Leal MCH (RBC) [Entitic mass] 29.7 pg Normal 25.9-34.0 [facility] Comment on above: Performed By: #### C BC ####[facility] Xqxhmyzgzf27[address] [place] [id number]. Farhat Leal MCHC (RBC) [Mass/Vol] 32.4 g/dL Normal 29.9-35.2 [facility] Comment on above: Performed By: #### C BC ####[facility] Qndtvvisbh1143 [place] [address]Dr. Farhat Leal MCV (RBC) [Entitic vol] 91.7 fL Normal 80.0-94.0 The [facility] Comment on above: Performed By: #### C BC ####[facility] Onkdbzyohw17[address] [place] [id number]. Farhat Leal MONO # 1.1 103/ul Critically high 0.3-0.8 The [facility] Comment on above: Performed By: #### C BC ####[facility] Kewljzbwbr4[address] [place] [id number]. Farhat Elvis Monocytes/100 WBC (Bld) 9.7 % Normal 1.7-12.0 The [facility] Comment on above: Performed By: #### C BC ####[facility] Edvaijvcsx82[address] [place] [id number]. Farhat Leal NEUT # 9.2 103/ul Critically high 1.4-6.5 The [facility] Comment on above: Performed By: #### C BC ####[facility] Lgercorbnj5[address] [place] [id number]. Farhat Elvis Neutrophils/100 WBC (Bld) 77.6 % Critically high 43.0-75.0 The [facility] Comment on above: Performed By: #### C BC ####[facility] Nwhbpfnebw67[address] [place], [place] [address]Gx. Farhat Leal Platelet mean volume (Bld) [Entitic vol] 9.5 fL Normal 9.5-13.5 [facility] Comment on above: Performed By: #### C BC ####[facility] Vlgfihfrps5633 [place], [place] [address]Jt. Farhat Leal PLT 375 103/ul Normal 150-450 The [facility] Comment on above: Performed By: #### C BC ####[facility] Kwyqiopyol1892 [place] [id number]. Farhat Leal RBC 3.13 106/ul Critically low 4.70-6.10 [facility] Comment on above: Performed By: #### C BC ####[facility] Ioqzubfmik7760 [place] [id number]. Farhat Leal WBC 11.8 103/ul Critically high 4.0-11.0 The [facility] Comment on above: Performed By: #### C BC ####[facility] Womoimzhva1803 [place] [id number]. Farhat Leal CRPon 11-27-2021 CRP 24.5 mg/dL Critically high <=1.0 The [facility] Comment on above: Performed By: #### B CLINICAL TECH, CMP, CRP ####[facility] Hwcchgtnxe75[address] [place] [id number]. Farhat Leal CULTURE OTHERon 11-27-2021 CULTURE OTHER Normal The [facility] Comment on above: Performed By: #### O THCX ####[facility] Jhtzmvffxw94[address] [place] [id number]. Farhat Leal CULTURE OTHER Normal The [facility] Comment on above: Performed By: #### O THCX ####[facility] [address] [place], [place] [address]Dr. Farhat Leal CULTURE WOUNDon 11-27-2021 CULTURE WOUND Normal The [facility] Comment on above: Performed By: #### W OUNDCX ####[facility] [address] [place], [place] [address]Dr. Farhat Leal POINT OF CARE GLUCOSEon 11-15 Glucose [Mass/Vol] 147 mg/dL Critically high 74-106 T [facility] Comment on above: Performed By: #### P OCGLUC ####[facility] Aovlmcwvgh5[address] [place] [address]Dr. Farhat Leal PROF 14(COMP METB)on 11-27- 022 Albumin [Mass/Vol] 1.4 g/dL Critically low 3.4-5.0 [facility] Comment on above: Performed By: #### B CLINICAL TECH, CMP, CRP ####[facility] Zrmlhxxmaa39[address] [place] [address]Dr. Farhat Leal Albumin/Globulin [Mass ratio] 0.4 {ratio} Normal [facility] Comment on above: Performed By: #### B CLINICAL TECH, CMP, CRP ####[facility] Inqgxtdwuh[address] [place] [address]Dr. Farhat Leal ALP [Catalytic activity/Vol] 82 U/L Normal 46-116 [facility] Comment on above: Performed By: #### B CLINICAL TECH, CMP, CRP ####[facility] Evwhhanznr3155 [place] [address]Dr. Farhat Leal ALT [Catalytic activity/Vol] 22 U/L Normal 16-63 [facility] Comment on above: Performed By: #### B CLINICAL TECH, CMP, CRP ####[facility] Dcmdugiayq6407 [place] [address]Dr. Farhat Leal Anion gap [Moles/Vol] 14.2 mmol/L Normal [facility] Comment on above: Performed By: #### B CLINICAL TECH, CMP, CRP ####[facility] Rdffjeesqx3294 [place] [address]Dr. Farhat Leal AST [Catalytic activity/Vol] 35 U/L Normal 15-37 [facility] Comment on above: Performed By: #### B CLINICAL TECH, CMP, CRP ####[facility] Escomnlvmx6382 [place] [address]Dr. Farhat Leal Bilirubin [Mass/Vol] 0.7 mg/dL Normal 0.2-1.0 [facility] Comment on above: Performed By: #### B CLINICAL TECH, CMP, CRP ####[facility] Knnwyakfei30[address] [place] [address]Dr. Farhat Leal Calcium [Mass/Vol] 8.2 mg/dL Critically low 8.5-10.1 Th e [facility] Comment on above: Performed By: #### B CLINICAL TECH, CMP, CRP ####[facility] Zstkkvkdwt5419 [place] [address]Dr. Farhat Leal Chloride [Moles/Vol] 99 mmol/L Normal 98-107 The [facility] Comment on above: Performed By: #### B CLINICAL TECH, CMP, CRP ####[facility] Gawejwvoqg[address] [place], [place] [address]Dr. Farhat Leal CO2 [Moles/Vol] 22.6 mmol/L Normal 21.0-32.0 [facility] Comment on above: Performed By: #### B CLINICAL TECH, CMP, CRP ####[facility] Qbcuumyddj47[address] [place], [place] [address]Dr. Farhat Leal Creatinine [Mass/Vol] 1.73 mg/dL Critically high 0.70-1.30 [facility] Comment on above: Performed By: #### B CLINICAL TECH, CMP, CRP ####[facility] Edvkblzwap[address] [place], [place] [address]Dr. Farhat Leal EGFR-AF IRISH 47 mL/min/1.73m2 Critically low >=60 The [facility] Comment on above: Performed By: #### B CLINICAL TECH, CMP, CRP ####[facility] Wqphgqjfki[address] [place], [place] [address]Dr. Farhat Leal EGFR-NON AF IRISH 38 mL/min/1.73m2 Critically low >=60 The [facility] Comment on above: Performed By: #### B CLINICAL TECH, CMP, CRP ####[facility] Gbhsanyxul07[address] [place], [place] [address]Dr. Farhat Leal Globulin (S) [Mass/Vol] 3.7 g/dL Normal The [facility] Comment on above: Performed By: #### B CLINICAL TECH, CMP, CRP ####[facility] Tueuoujnrd[address] [place], [place] [address]Dr. Farhat Leal Glucose [Mass/Vol] 220 mg/dL Critically high 74-106 T [facility] Comment on above: Performed By: #### B CLINICAL TECH, CMP, CRP ####[facility] Myyjjnsaig2083 [place] [address]Dr. Farhat Leal Potassium [Moles/Vol] 3.8 mmol/L Normal 3.5-5.1 [facility] Comment on above: Performed By: #### B CLINICAL TECH, CMP, CRP ####[facility] Qqpcznfkru3228 [place] [address]Dr. Farhat Leal Protein [Mass/Vol] 5.1 g/dL Critically low 6.4-8.2 Th [facility] Comment on above: Performed By: #### B CLINICAL TECH, CMP, CRP ####[facility] Ktoiioccad[address] [place], [place] [address]Dr. Farhat Leal Sodium [Moles/Vol] 132 mmol/L Critically low 136-145 Th [facility] Comment on above: Performed By: #### B CLINICAL TECH, CMP, CRP ####[facility] Vnzivsdhuk5[address] [place] [address]Dr. Farhat Leal Urea nitrogen [Mass/Vol] 49.0 mg/dL Critically high 7.0-18.0 [facility] Comment on above: Performed By: #### B CLINICAL TECH, CMP, CRP ####[facility] Wkkvvdrkkw7[address] [place], [place] [address]Dr. Farhat Leal Urea nitrogen/Creatinine [Mass ratio] 28.3 mg/mg Normal [facility] Comment on above: Performed By: #### B CLINICAL TECH, CMP, CRP ####[facility] Dlmvlxrbnm[address] [place], [place] [address]Dr. Farhat Leal PROTIMEon 11-27-2021 INR Coag (PPP) [Relative time] 1.25 {INR} Normal [facility] Comment on above: Performed By: #### P T ####[facility] Picuwgitbf[address] [place], [place] [address]Dr. Farhat Leal INR GUIDELINES SEE BELOW Normal The [facility] Comment on above: Result Comment: MALINA RED INR: 2.0 - 3.0 CONDITIONS NOT LISTED BELOW 2.5 - 3.5 FOR PROSTHETIC HEART VALVE REPLACEMENT 2.5 - 3.5 RECURRENT THROMBOSIS Performed By: #### P T ####[facility] Nivwcdxjev[address] [place], [place] [address]Dr. Farhat Leal PT Coag (PPP) [Time] 13.3 s Critically high 9.0-11.6 [facility] Comment on above: Performed By: #### P T ####[facility] Qmppnxudax[address] [place], [place] [address]Dr. Farhat Leal [facility] SED RATE 60 mm/hr Critically high <=20 [facility] Comment on above: Performed By: #### S EDR ####[facility] Opwsrxwbxt6[address] [place], [place] [address]Dr. Farhat Leal VANCOMYCIN TROUGHon 11-28-19 22 VANCOMYCIN TROUGH 21.2 ug/ml Critically high 5.0-20.0 [facility] Comment on above: Performed By: #### V ANCT ####[facility] Diyiyeerfo[address] [place], [place] [address]Dr. Farhat Leal XR CHEST 1 Von 11-27-2021 XR CHEST 1 V Normal The [facility] BNPon 11-26-2021 Natriuretic peptide B (Bld) [Mass/Vol] 92106.0 pg/mL Critically high <=1,800.0 [facility] Comment on above: Performed By: #### B CLINICAL TECH, CRP, CMP ####[facility] Zszvwforpm[address] [place], [place] [address]Dr. Farhat Leal CBC AUTO DIFFon 11-26-2021 BASO # 0.0 103/ul Normal 0.0-0.1 [facility] Comment on above: Performed By: #### C BC ####[facility] W[address]pxujbhmz[address] [place], [place] [address]Dr. Farhat Leal Basophils/100 WBC (Bld) 0.2 % Normal 0.2-2.0 [facility] Comment on above: Performed By: #### C BC ####[facility] Ejkxobvvmn7636 [place] [id number]. Farhat Leal EO # 0.0 103/ul Normal 0.0-0.7 The [facility] Comment on above: Performed By: #### C BC ####[facility] Yszafwbmbv4839 [place] [id number]. Farhat Leal Eosinophils/100 WBC (Bld) 0.3 % Critically low 0.9-7.0 The [facility] Comment on above: Performed By: #### C BC ####[facility] Escktoonzd6004 [place] [address]Dr. Farhat Leal Erythrocyte distribution width (RBC) [Ratio] 13.9 % Normal 11.0-15.0 The [facility] Comment on above: Performed By: #### C BC ####[facility] Fnzpwvkznr5554 [place] [address]Dr. Farhat Leal Hematocrit (Bld) [Volume fraction] 27.3 % Critically low 42.0-54.0 The [facility] Comment on above: Performed By: #### C BC ####[facility] Qiydijutpz6139 [place] [id number]. Farhat Leal Hemoglobin (Bld) [Mass/Vol] 8.8 g/dL Critically low 14.0-18.0 The [facility] Comment on above: Performed By: #### C BC ####[facility] Kdioccpggw6624 [place] [id number]. Farhat Leal IG # 0.17 10e3/ul Critically high 0.00-0.03 The [facility] Comment on above: Performed By: #### C BC ####[facility] Opuyoesvur7806 [place] [id number]. Farhat Leal IG % 1.2 % Critically high 0.0-0.5 The [facility] Comment on above: Performed By: #### C BC ####[facility] [address] [place], [place] [address]Dr. Farhat Leal LYMPH # 0.7 103/ul Critically low 1.2-3.8 The [facility] Comment on above: Performed By: #### C BC ####[facility] Gksmavhktb9187 [place] [id number]. Farhat Leal Lymphocytes/100 WBC (Bld) 4.8 % Critically low 20.5-60.0 The [facility] Comment on above: Performed By: #### C BC ####[facility] Liyvclglyb7498 [place] [id number]. Farhat Leal MANUAL DIFF REQ NO Normal The [facility] Comment on above: Performed By: #### C BC ####[facility] Erlvyirfka4221 [place] [id number]. Madelynlorri Leal MCH (RBC) [Entitic mass] 29.9 pg Normal 25.9-34.0 [facility] Comment on above: Performed By: #### C BC ####[facility] Zfwgmwrwtj[address] [place], [place] [address]Dr. Farhat Leal MCHC (RBC) [Mass/Vol] 32.2 g/dL Normal 29.9-35.2 The [facility] Comment on above: Performed By: #### C BC ####[facility] Jlskegvtwd[address] [place], [place] [address]Dr. Madelynlorri Leal MCV (RBC) [Entitic vol] 92.9 fL Normal 80.0-94.0 [facility] Comment on above: Performed By: #### C BC ####[facility] Imaumfjdzz8538 [place] [address]Dr. Farhat Leal MONO # 1.3 103/ul Critically high 0.3-0.8 The [facility] Comment on above: Performed By: #### C BC ####[facility] Eqajcseplc[address] [place], [place] [address]Dr. Farhat Leal Monocytes/100 WBC (Bld) 9.6 % Normal 1.7-12.0 The [facility] Comment on above: Performed By: #### C BC ####[facility] Tpsntpgthy[address] [place], [place] [address]Dr. Farhat Leal NEUT # 11.4 103/ul Critically high 1.4-6.5 The [facility] Comment on above: Performed By: #### C BC ####[facility] Mjegpsvozr7878 [place] [id number]. Farhat Leal Neutrophils/100 WBC (Bld) 83.9 % Critically high 43.0-75.0 [facility] Comment on above: Performed By: #### C BC ####[facility] Uqelcglrtp4522 [place], [place] [address]Kq. Farhat Leal Platelet mean volume (Bld) [Entitic vol] 9.6 fL Normal 9.5-13.5 [facility] Comment on above: Performed By: #### C BC ####[facility] Dkiwpszexm8837 [place] [id number]. Farhat Leal PLT 395 103/ul Normal 150-450 [facility] Comment on above: Performed By: #### C BC ####[facility] Mdxscfxysa3923 [place] [id number]. Farhat Leal RBC 2.94 106/ul Critically low 4.70-6.10 [facility] Comment on above: Performed By: #### C BC ####[facility] Kiasjmllds6138 [place] [id number]. Farhat Leal WBC 13.6 103/ul Critically high 4.0-11.0 [facility] Comment on above: Performed By: #### C BC ####[facility] Urqezvvwtm6538 [place] [id number]. Farhat Leal CRPon 11-26-2021 CRP [Mass/Vol] mg/L Critically high <=1.0 [facility] Comment on above: Performed By: #### B CLINICAL TECH, CRP, CMP ####[facility] Bnxnsujcgg3969 [place] [id number]. Farhat Leal PROF 14(COMP METB)on 022 Albumin [Mass/Vol] 1.5 g/dL Critically low 3.4-5.0 [facility] Comment on above: Performed By: #### B CLINICAL TECH, CRP, CMP ####[facility] Alxqvlglmq4124 [place] [id number]. Farhat Leal Albumin/Globulin [Mass ratio] 0.4 {ratio} Normal [facility] Comment on above: Performed By: #### B CLINICAL TECH, CRP, CMP ####[facility] Dzyumsqdoq9506 [place] [address]Dr. Madelynlorri Elvis ALP [Catalytic activity/Vol] 88 U/L Normal 46-116 [facility] Comment on above: Performed By: #### B CLINICAL TECH, CRP, CMP ####[facility] Xqixznbmmb[address] [place], [place] [address]Dr. Farhat Leal ALT [Catalytic activity/Vol] 29 U/L Normal 16-63 [facility] Comment on above: Performed By: #### B CLINICAL TECH, CRP, CMP ####[facility] Nrhezfeupb[address] [place], [place] [address]Dr. Farhat Leal Anion gap [Moles/Vol] 13.3 mmol/L Normal [facility] Comment on above: Performed By: #### B CLINICAL TECH, CRP, CMP ####[facility] Amoceceaea[address] [place], [place] [address]Dr. Farhat Leal AST [Catalytic activity/Vol] 32 U/L Normal 15-37 [facility] Comment on above: Performed By: #### B CLINICAL TECH, CRP, CMP ####[facility] Humwbzmkkf[address] [place], [place] [address]Dr. Farhat Leal Bilirubin [Mass/Vol] 0.6 mg/dL Normal 0.2-1.0 [facility] Comment on above: Performed By: #### B CLINICAL TECH, CRP, CMP ####[facility] Qtvudqchxq[address] [place], [place] [address]Dr. Farhat Leal Calcium [Mass/Vol] 8.0 mg/dL Critically low 8.5-10.1 [facility] Comment on above: Performed By: #### B CLINICAL TECH, CRP, CMP ####[facility] Ofpopfglft[address] [place], [place] [address]Dr. Farhat Leal Chloride [Moles/Vol] 98 mmol/L Normal 98-107 [facility] Comment on above: Performed By: #### B CLINICAL TECH, CRP, CMP ####[facility] Jpnwjwesvn[address] [place], [place] [address]Dr. Farhat Leal CO2 [Moles/Vol] 23.7 mmol/L Normal 21.0-32.0 [facility] Comment on above: Performed By: #### B CLINICAL TECH, CRP, CMP ####[facility] Dcvwwzvjsh6736 [place] [address]Dr. Farhat Leal Creatinine [Mass/Vol] 2.08 mg/dL Critically high 0.70-1.30 [facility] Comment on above: Performed By: #### B CLINICAL TECH, CRP, CMP ####[facility] Qulbfzszxt[address] [place], [place] [address]Dr. Farhat Leal EGFR-AF IRISH 38 mL/min/1.73m2 Critically low >=60 [facility] Comment on above: Performed By: #### B CLINICAL TECH, CRP, CMP ####[facility] Nfsmkxeokt[address] [place], [place] [address]Dr. Farhat Leal EGFR-NON AF IRISH 31 mL/min/1.73m2 Critically low >=60 [facility] Comment on above: Performed By: #### B CLINICAL TECH, CRP, CMP ####[facility] Qlnamvjlum[address] [place], [place] [address]Dr. Farhat Leal Globulin (S) [Mass/Vol] 3.7 g/dL Normal [facility] Comment on above: Performed By: #### B CLINICAL TECH, CRP, CMP ####[facility] Jornkklttd[address] [place], [place] [address]Dr. Madelynlorri Leal Glucose [Mass/Vol] 315 mg/dL Critically high 74-106 [facility] Comment on above: Performed By: #### B CLINICAL TECH, CRP, CMP ####[facility] Bngwhfezgu[address] [place], [place] [address]Dr. Madelynlorri Leal Potassium [Moles/Vol] 4.0 mmol/L Normal 3.5-5.1 [facility] Comment on above: Performed By: #### B CLINICAL TECH, CRP, CMP ####[facility] Tfomqmmnyw[address] [place], [place] [address]Dr. Farhat Leal Protein [Mass/Vol] 5.2 g/dL Critically low 6.4-8.2 Th [facility] Comment on above: Performed By: #### B CLINICAL TECH, CRP, CMP ####[facility] [address] [place] [address]Dr. Farhat Leal Sodium [Moles/Vol] 131 mmol/L Critically low 136-145 Th [facility] Comment on above: Performed By: #### B CLINICAL TECH, CRP, CMP ####[facility] Xpzbwzbhqf[address] [place] [address]Dr. Farhat Leal Urea nitrogen [Mass/Vol] 50.0 mg/dL Critically high 7.0-18.0 [facility] Comment on above: Performed By: #### B CLINICAL TECH, CRP, CMP ####[facility] Whmwnbvwsg[address] [place], [place] [address]Dr. Farhat Leal Urea nitrogen/Creatinine [Mass ratio] 24.0 mg/mg Normal [facility] Comment on above: Performed By: #### B CLINICAL TECH, CRP, CMP ####[facility] Rmqlyiywtu96[address] [place], [place] [address]Dr. Farhat Leal PROTIMEon 11-26-2021 INR Coag (PPP) [Relative time] 1.31 {INR} Normal [facility] Comment on above: Performed By: #### P T ####[facility] Ytkqvmngps[address] [place], [place] [address]Dr. Farhat Leal INR GUIDELINES SEE BELOW Normal [facility] Comment on above: Result Comment: MALINA RED INR: 2.0 - 3.0 CONDITIONS NOT LISTED BELOW 2.5 - 3.5 FOR PROSTHETIC HEART VALVE REPLACEMENT 2.5 - 3.5 RECURRENT THROMBOSIS Performed By: #### P T ####[facility] Qgingnoyrf[address] [place] [address]Dr. Farhat Leal PT Coag (PPP) [Time] 13.9 s Critically high 9.0-11.6 [facility] Comment on above: Performed By: #### P T ####[facility] Uejasaybjv7[address] [place], [place] [address]Dr. Farhat Leal SED RATE [facility] 2021 SED RATE 87 mm/hr Critically high <=20 [facility] Comment on above: Performed By: #### S EDR ####[facility] Cmpggezmqw[address] [place] [address]Dr. Farhat Leal BNPon 11-25-2021 Natriuretic peptide B (Bld) [Mass/Vol] 87774.0 pg/mL Critically high <=1,800.0 The [facility] Comment on above: Performed By: #### C MP, BNP, CRP ####[facility] Qiqhfydztv5847[address] [place], [place] [address]Dr. Farhat Elvis CBC AUTO DIFFon 11-25-2021 BASO # 0.0 103/ul Normal 0.0-0.1 The [facility] Comment on above: Performed By: #### C BC ####[facility] Bvcsfroshj[address] [place], [place] [address]Dr. Farhat Leal Basophils/100 WBC (Bld) 0.4 % Normal 0.2-2.0 The [facility] Comment on above: Performed By: #### C BC ####[facility] Lnrnbxdmvh17[address] [place], [place] [address]Dr. Farhat Leal EO # 0.1 103/ul Normal 0.0-0.7 The [facility] Comment on above: Performed By: #### C BC ####[facility] Qodyvgmdjc112[address] [place], [place] [address]Dr. Madelynlorri Leal Eosinophils/100 WBC (Bld) 1.2 % Normal 0.9-7.0 The [facility] Comment on above: Performed By: #### C BC ####[facility] Mhissqarxm[address] [place], [place] [address]Dr. Farhat Leal Erythrocyte distribution width (RBC) [Ratio] 13.7 % Normal 11.0-15.0 The [facility] Comment on above: Performed By: #### C BC ####[facility] Phzgrfjmwv635[address] [place], [place] [address]Dr. Farhat Leal Hematocrit (Bld) [Volume fraction] 29.6 % Critically low 42.0-54.0 The [facility] Comment on above: Performed By: #### C BC ####[facility] [address]ld[address] [place] [id number]. Farhat Leal Hemoglobin (Bld) [Mass/Vol] 9.3 g/dL Critically low 14.0-18.0 The [facility] Comment on above: Performed By: #### C BC ####[facility] [address]lfq[address]neuy[address] [place] [address]Dr. Farhat Leal IG # 0.15 10e3/ul Critically high 0.00-0.03 The [facility] Comment on above: Performed By: #### C BC ####[facility] Y[address]hen[address] [place] [address]Dr. Farhat Leal IG % 1.4 % Critically high 0.0-0.5 The [facility] Comment on above: Performed By: #### C BC ####[facility] Mfqehawkto[address] [place] [address]Dr. Farhat Leal LYMPH # 0.8 103/ul Critically low 1.2-3.8 The [facility] Comment on above: Performed By: #### C BC ####[facility] Kwcohmipvy[address] [place] [address]Dr. Farhat Leal Lymphocytes/100 WBC (Bld) 7.3 % Critically low 20.5-60.0 The [facility] Comment on above: Performed By: #### C BC ####[facility] Focejxoocc[address] [place] [address]Dr. Farhat Leal MANUAL DIFF REQ NO Normal The [facility] Comment on above: Performed By: #### C BC ####[facility] Vfxxhxenqj[address] [place] [address]Dr. Farhat Leal MCH (RBC) [Entitic mass] 29.3 pg Normal 25.9-34.0 The [facility] Comment on above: Performed By: #### C BC ####[facility] Wkpbgdzyjn7[address] [place], [place] [address]Dr. Farhat Leal MCHC (RBC) [Mass/Vol] 31.4 g/dL Normal 29.9-35.2 The [facility] Comment on above: Performed By: #### C BC ####[facility] Z[address]yln[address] [place] [id number]. Farhat Leal MCV (RBC) [Entitic vol] 93.4 fL Normal 80.0-94.0 The [facility] Comment on above: Performed By: #### C BC ####[facility] Ajroarlnbk[address] [place] [id number]. Farhat Leal MONO # 1.3 103/ul Critically high 0.3-0.8 The [facility] Comment on above: Performed By: #### C BC ####[facility] Xdscpbynrr[address] [place], [place] [address]Dr. Farhat Leal Monocytes/100 WBC (Bld) 12.3 % Critically high 1.7-12.0 The [facility] Comment on above: Performed By: #### C BC ####[facility] Pwmadvfdyt8364[address] [place], [place] [address]Dr. Farhat Leal NEUT # 8.4 103/ul Critically high 1.4-6.5 The [facility] Comment on above: Performed By: #### C BC ####[facility] Kpvuftlawr36[address] [place], [place] [address]Dr. Farhat Leal Neutrophils/100 WBC (Bld) 77.4 % Critically high 43.0-75.0 The [facility] Comment on above: Performed By: #### C BC ####[facility] Mindctvdou[address] [place], [place] [address]Dr. Farhat Leal Platelet mean volume (Bld) [Entitic vol] 9.8 fL Normal 9.5-13.5 The [facility] Comment on above: Performed By: #### C BC ####[facility] [address]sd[address]qwmt[address] [place], [place] [address]Dr. Farhat Leal PLT 390 103/ul Normal 150-450 The [facility] Comment on above: Performed By: #### C BC ####[facility] Blatgsbu[address] [place], [place] [address]Dr. Farhat Leal RBC 3.17 106/ul Critically low 4.70-6.10 The [facility] Comment on above: Performed By: #### C BC ####[facility] Uhquvhlsho[address] [place] [address]Dr. Farhat Leal WBC 10.9 103/ul Normal 4.0-11.0 [facility] Comment on above: Performed By: #### C BC ####[facility] Nkpptroxkh[address] [place] [address]Dr. Farhat Leal CRPon 11-25-2021 CRP 27.2 mg/dL Critically high <=1.0 [facility] Comment on above: Performed By: #### C MP, BNP, CRP ####[facility] [address]wh[address] [place] [address]Dr. Farhat Leal PROF 14(COMP METB)on 022 Albumin [Mass/Vol] 1.5 g/dL Critically low 3.4-5.0 [facility] Comment on above: Performed By: #### C MP, BNP, CRP ####[facility] Vvwefjffvf[address] [place] [address]Dr. Farhat Leal Albumin/Globulin [Mass ratio] 0.4 {ratio} Normal [facility] Comment on above: Performed By: #### C MP, BNP, CRP ####[facility] Rlrjrzfocm[address] [place] [address]Dr. Farhat Leal ALP [Catalytic activity/Vol] 86 U/L Normal 46-116 [facility] Comment on above: Performed By: #### C MP, BNP, CRP ####[facility] Dvfrdulxdo[address] [place] [address]Dr. Farhat Leal ALT [Catalytic activity/Vol] 34 U/L Normal 16-63 [facility] Comment on above: Performed By: #### C MP, BNP, CRP ####[facility] Qmwtnqqrmo[address] [place] [address]Dr. Farhat Leal Anion gap [Moles/Vol] 17.8 mmol/L Normal [facility] Comment on above: Performed By: #### C MP, BNP, CRP ####[facility] Iqngwntrip[address] [place] [address]Dr. Farhat Leal AST [Catalytic activity/Vol] 48 U/L Critically high 15-37 [facility] Comment on above: Performed By: #### C MP, BNP, CRP ####[facility] Jpmanfbiml[address] [place] [address]Dr. Farhat Leal Bilirubin [Mass/Vol] 0.8 mg/dL Normal 0.2-1.0 The [facility] Comment on above: Performed By: #### C MP, BNP, CRP ####[facility] Ichiillbsn[address] [place], [place] [address]Dr. Farhat Leal Calcium [Mass/Vol] 8.3 mg/dL Critically low 8.5-10.1 Th e [facility] Comment on above: Performed By: #### C MP, BNP, CRP ####[facility] Lvhxtdpndx38[address] [place], [place] [address]Dr. Farhat Leal Chloride [Moles/Vol] 97 mmol/L Critically low 98-107 [facility] Comment on above: Performed By: #### C MP, BNP, CRP ####[facility] Uchsytauob[address] [place], [place] [address]Dr. Farhat Leal CO2 [Moles/Vol] 23.0 mmol/L Normal 21.0-32.0 The [facility] Comment on above: Performed By: #### C MP, BNP, CRP ####[facility] Jrqxumewfz[address] [place], [place] [address]Dr. Farhat Leal Creatinine [Mass/Vol] 1.68 mg/dL Critically high 0.70-1.30 [facility] Comment on above: Performed By: #### C MP, BNP, CRP ####[facility] Vzaatknrrv[address] [place], [place] [address]Dr. Farhat Leal EGFR-AF IRISH 48 mL/min/1.73m2 Critically low >=60 The [facility] Comment on above: Performed By: #### C MP, BNP, CRP ####[facility] Bnvpbylyqs7[address] [place], [place] [address]Dr. Farhat Leal EGFR-NON AF IRISH 40 mL/min/1.73m2 Critically low >=60 The [facility] Comment on above: Performed By: #### C MP, BNP, CRP ####[facility] Ckdvufogsc[address] [place] [address]Dr. Farhat Leal Globulin (S) [Mass/Vol] 3.9 g/dL Normal [facility] Comment on above: Performed By: #### C MP, BNP, CRP ####[facility] Umapdepknz[address] [place] [address]Dr. Farhat Leal Glucose [Mass/Vol] 282 mg/dL Critically high 74-106 [facility] Comment on above: Performed By: #### C MP, BNP, CRP ####[facility] Dlzwxqqive56[address] [place] [address]Dr. Farhat Leal Potassium [Moles/Vol] 4.8 mmol/L Normal 3.5-5.1 [facility] Comment on above: Performed By: #### C MP, BNP, CRP ####[facility] Midtmekfrk[address] [place] [address]Dr. Farhat Leal Protein [Mass/Vol] 5.4 g/dL Critically low 6.4-8.2 Th [facility] Comment on above: Performed By: #### C MP, BNP, CRP ####[facility] Vbvepfcnpg4[address] [place] [address]Dr. Farhat Leal Sodium [Moles/Vol] 133 mmol/L Critically low 136-145 Th [facility] Comment on above: Performed By: #### C MP, BNP, CRP ####[facility] Vpnrqnwefv70[address] [place] [address]Dr. Farhat Leal Urea nitrogen [Mass/Vol] 40.0 mg/dL Critically high 7.0-18.0 [facility] Comment on above: Performed By: #### C MP, BNP, CRP ####[facility] Pseynexdiu09[address] [place] [address]Dr. Farhat Leal Urea nitrogen/Creatinine [Mass ratio] 23.8 mg/mg Normal [facility] Comment on above: Performed By: #### C MP, BNP, CRP ####[facility] [address]zeqyoox[address] [place] [address]Dr. Farhat Leal PROTIMEon 11-25-2021 INR Coag (PPP) [Relative time] 1.48 {INR} Normal The [facility] Comment on above: Performed By: #### P T ####[facility] Zfmfczpldq[address] [place], [place] [address]Dr. Farhat Leal INR GUIDELINES SEE BELOW Normal The [facility] Comment on above: Result Comment: MALINA RED INR: 2.0 - 3.0 CONDITIONS NOT LISTED BELOW 2.5 - 3.5 FOR PROSTHETIC HEART VALVE REPLACEMENT 2.5 - 3.5 RECURRENT THROMBOSIS Performed By: #### P T ####[facility] Jpbwudsydn[address] [place], [place] [address]Dr. Farhat Leal PT Coag (PPP) [Time] 15.6 s Critically high 9.0-11.6 The [facility] Comment on above: Performed By: #### P T ####[facility] Vexasfemmz[address] [place], [place] [address]Dr. Farhat Leal [facility] SED [facility] 76 mm/hr Critically high <=20 The [facility] Comment on above: Performed By: #### S EDR ####[facility] Qyvqdgkdjs7[address] [place], [place] [address]Dr. Farhat Leal BNPon 11-24-2021 Natriuretic peptide B (Bld) [Mass/Vol] 35993.0 pg/mL Critically high <=1,800.0 The [facility] Comment on above: Performed By: #### B CLINICAL TECH, CMP, CRP ####[facility] Hzmwlbgisw266[address] [place], [place] [address]Dr. Farhat Leal CBC AUTO DIFFon 11-24-2021 BASO # 0.0 103/ul Normal 0.0-0.1 The [facility] Comment on above: Performed By: #### C BC ####[facility] Uplokgqlqv6026[address] [place], [place] [address]Dr. Farhat Leal Basophils/100 WBC (Bld) 0.3 % Normal 0.2-2.0 The [facility] Comment on above: Performed By: #### C BC ####[facility] Vymsfamkys[address] [place], [place] [address]Dr. Farhat Leal EO # 0.2 103/ul Normal 0.0-0.7 The [facility] Comment on above: Performed By: #### C BC ####[facility] Ifhhdfqlfw25[address] [place] [address]Dr. Farhat Leal Eosinophils/100 WBC (Bld) 1.2 % Normal 0.9-7.0 The [facility] Comment on above: Performed By: #### C BC ####[facility] Rwfuwskfxl7239[address] [place], [place] [address]Dr. Farhat Leal Erythrocyte distribution width (RBC) [Ratio] 13.5 % Normal 11.0-15.0 The [facility] Comment on above: Performed By: #### C BC ####[facility] Krfolvdyqr85[address] [place], [place] [address]Dr. Farhat Leal Hematocrit (Bld) [Volume fraction] 31.1 % Critically low 42.0-54.0 [facility] Comment on above: Performed By: #### C BC ####[facility] Oaiesvzcth[address] [place], [place] [address]Dr. Farhat Leal Hemoglobin (Bld) [Mass/Vol] 10.0 g/dL Critically low 14.0-18.0 The [facility] Comment on above: Performed By: #### C BC ####[facility] Preeerapkc[address] [place], [place] [address]Dr. Farhat Leal IG # 0.13 10e3/ul Critically high 0.00-0.03 The [facility] Comment on above: Performed By: #### C BC ####[facility] Kmqaappqdu267[address] [place], [place] [address]Dr. Farhat Leal IG % 1.0 % Critically high 0.0-0.5 The [facility] Comment on above: Performed By: #### C BC ####[facility] Njyxadhbqg88[address] [place], [place] [address]Dr. Farhat Leal LYMPH # 0.7 103/ul Critically low 1.2-3.8 The [facility] Comment on above: Performed By: #### C BC ####[facility] Glehrqoqrc8822[address] [place], [place] [address]Dr. Farhat Leal Lymphocytes/100 WBC (Bld) 4.9 % Critically low 20.5-60.0 The [facility] Comment on above: Performed By: #### C BC ####[facility] Uyrdafvnes[address] [place] [address]DrSkylar Leal MANUAL DIFF REQ NO Normal The [facility] Comment on above: Performed By: #### C BC ####[facility] Vdrxwzdydg3974 [place] [address]Dr. Farhat Leal MCH (RBC) [Entitic mass] 29.6 pg Normal 25.9-34.0 The [facility] Comment on above: Performed By: #### C BC ####[facility] Shsrjndsks05[address] [place], [place] [address]Dr. Farhat Leal MCHC (RBC) [Mass/Vol] 32.2 g/dL Normal 29.9-35.2 The [facility] Comment on above: Performed By: #### C BC ####[facility] Iljanlntjn[address] [place], [place] [address]Dr. Farhat Leal MCV (RBC) [Entitic vol] 92.0 fL Normal 80.0-94.0 The [facility] Comment on above: Performed By: #### C BC ####[facility] Bfzepmevfw[address] [place], [place] [address]Dr. Farhat Leal MONO # 1.3 103/ul Critically high 0.3-0.8 The [facility] Comment on above: Performed By: #### C BC ####[facility] Wnmugxaolc[address] [place], [place] [address]DrSkylar Leal Monocytes/100 WBC (Bld) 9.6 % Normal 1.7-12.0 The [facility] Comment on above: Performed By: #### C BC ####[facility] Rhuhnropxl[address] [place], [place] [address]DrSkylar Leal NEUT # 11.2 103/ul Critically high 1.4-6.5 The [facility] Comment on above: Performed By: #### C BC ####[facility] Bcfjikyxnm8199[address] [place], [place] [address]Dr. Farhat Leal Neutrophils/100 WBC (Bld) 83.0 % Critically high 43.0-75.0 The [facility] Comment on above: Performed By: #### C BC ####[facility] Iezugqhrwn30[address] [place] [address]Dr. Farhat Leal Platelet mean volume (Bld) [Entitic vol] 9.5 fL Normal 9.5-13.5 The [facility] Comment on above: Performed By: #### C BC ####[facility] Wdwjsmhodi85[address] [place] [address]Dr. Farhat Leal PLT 395 103/ul Normal 150-450 The [facility] Comment on above: Performed By: #### C BC ####[facility] Nqtccxptiv3489 [place] [address]Dr. Farhat Leal RBC 3.38 106/ul Critically low 4.70-6.10 The [facility] Comment on above: Performed By: #### C BC ####[facility] Gixejkinlb36[address] [place] [address]Dr. Farhat Leal WBC 13.4 103/ul Critically high 4.0-11.0 The [facility] Comment on above: Performed By: #### C BC ####[facility] Zdafjvfcwq9730 [place] [address]Dr. Farhat Leal CRPon 11-24-2021 CRP 27.8 mg/dL Critically high <=1.0 The [facility] Comment on above: Performed By: #### B CLINICAL TECH, CMP, CRP ####[facility] Tqzbguwtkd7[address] [place] [address]Dr. Farhat Leal CULTURE ANAEROBICon 11-25-19 22 CULTURE ANAEROBIC Culture Observations : NO GROWTH OF ANAEROBES AT 72 HOURS. Normal [facility] Comment on above: Performed By: #### A NACX ####[facility] Spljzrjech[address] [place] [address]Dr. Farhat Leal CULTURE ANAEROBIC Culture Observations : NO GROWTH OF ANAEROBES AT 72 HOURS. [facility] Comment on above: Performed By: #### A NACX ####[facility] Cbmwqiibsf[address] [place], [place] [address]Dr. Madelynlorri Elvis CULTURE ANAEROBIC Culture Observations : No growth of anaerobes at 72 hours. Normal [facility] Comment on above: Performed By: #### A NACX ####[facility] Iuwxqafdai[address] [place], [place] [address]Dr. Farhat Leal CULTURE ANAEROBIC Culture Observations : No growth of anaerobes at 72 hours. Normal [facility] Comment on above: Performed By: #### A NACX ####[facility] Aeyotizzvi2264[address] [place], [place] [address]Dr. Farhat Leal CULTURE URINEon 11-24-2021 CULTURE URINE Culture Observations : NO GROWTH. Normal [facility] Comment on above: Performed By: #### U RCX ####[facility] Smninsieto6[address] [place], [place] [address]Dr. Farhat Leal ECHOCARDIO M/2D COMPLETEon 1 ECHOCARDIO M/2D COMPLETE Normal [facility] ER URINE PROFILEon Bilirubin Ql (U) Negative Normal NEGATIVE [facility] Comment on above: Performed By: #### E RUR ####[facility] Jzaryulxyf[address] [place], [place] [address]Dr. Farhat Leal Clarity (U) CLEAR Normal CLEAR [facility] Comment on above: Performed By: #### E RUR ####[facility] Gejefmozvl[address] [place], [place] [address]Dr. Farhat Leal Color (U) YELLOW Normal YELLOW The [facility] Comment on above: Performed By: #### E RUR ####[facility] Cxaralyccv06[address] [place], [place] [address]Dr. Farhat Leal ERUAHD A micrscopic examination will be performed if indicated. Normal [facility] Comment on above: Performed By: #### E RUR ####[facility] Vsudzzpkuz5734[address] [place], [place] [address]Dr. Farhat Leal Glucose Ql (U) Negative Normal NEGATIVE The [facility] Comment on above: Performed By: #### E RUR ####[facility] Mkpnvhkeod9669[address] [place], [place] [address]Dr. Farhat Leal Hemoglobin Ql (U) Negative Normal NEGATIVE The [facility] Comment on above: Performed By: #### E RUR ####[facility] Stlsmxyfog[address] [place], [place] [address]Dr. Farhat Leal Ketones Ql (U) TRACE Abnormal NEGATIVE The [facility] Comment on above: Performed By: #### E RUR ####[facility] Ihgashzkck77[address] [place], [place] [address]Dr. Farhat Leal LEUKOCYTES Negative Normal NEGATIVE The [facility] Comment on above: Performed By: #### E RUR ####[facility] Sfwhetvnth27[address] [place], [place] [address]Dr. Farhat Leal Nitrite Ql (U) Negative Normal NEGATIVE The [facility] Comment on above: Performed By: #### E RUR ####[facility] Tghgcuivgd109[address] [place], [place] [address]Dr. Farhat Elvis pH (U) 5.5 [pH] Normal 5-9 The [facility] Comment on above: Performed By: #### E RUR ####[facility] Xsvtaikltm[address] [place], [place] [address]Dr. Farhat Elvis SPEC GRAVITY 1.015 Normal 1.005-<=1.[address] [place] [address] Comment on above: Performed By: #### E RUR ####[facility] Ffldynnpur[address] [place], [place] [address]Dr. Farhat Elvis UA PROTEIN Negative Normal NEGATIVE/ TRACE The [facility] Comment on above: Performed By: #### E RUR ####[facility] Synkljaeah[address] [place], [place] [address]Dr. Farhat Elvis UR MICRO IND NOT INDICATED Normal The [facility] Comment on above: Performed By: #### E RUR ####[facility] Enplrvulfq[address] [place], [place] [address]Dr. Madelynlorri Elvis Urobilinogen Qn (U) 0.2 {Boyd'U}/dL Normal 0.2 - 1. 0 [facility] Comment on above: Performed By: #### E RUR ####[facility] Xdajsmkucw22[address] [place] [address]Dr. Farhat Leal GRAM STAINon 11-24-2021 DIPHTHEROIDS Normal The [facility] Comment on above: Performed By: #### G STAIN ####[facility] Dfdkcmbxvr2970 [place] [address]Dr. Farhat Leal EPITHELIALS Normal The [facility] Comment on above: Performed By: #### G STAIN ####[facility] Quuzwkahkm[address] [place] [address]Dr. Farhat Leal FUNGAL ELEMENTS Normal The [facility] Comment on above: Performed By: #### G STAIN ####[facility] Ctwtrekifh[address] [place], [place] [address]Dr. Farhat Leal GRAM NEG BACILLI Normal The [facility] Comment on above: Performed By: #### G STAIN ####[facility] Hcvqfjkefe[address] [place], [place] [address]Dr. Farhat Leal GRAM NEG DIPPLOCOCCI Normal The [facility] Comment on above: Performed By: #### G STAIN ####[facility] Aplgwpzusf[address] [place], [place] [address]Dr. Farhat Leal GRAM POS BACILLI Normal The [facility] Comment on above: Performed By: #### G STAIN ####[facility] Npyprgtccc92[address] [place], [place] [address]Dr. Farhat Leal GRAM POSITIVE COCCI FEW Normal The [facility] Comment on above: Performed By: #### G STAIN ####[facility] Wygkjycyfm64[address] [place], [place] [address]Dr. Farhat Leal GRAM STAIN SOURCE RT ACHILLES TENDON Normal The [facility] Comment on above: Performed By: #### G STAIN ####[facility] Ueregdzqlk[address] [place] [address]Dr. Farhat Leal GS_DIPTH Normal The [facility] Comment on above: Performed By: #### G STAIN ####[facility] Uqcsfdnnvs2[address] [place] [address]Dr. Farhat Leal WBC RARE Normal The [facility] Comment on above: Performed By: #### G STAIN ####[facility] Obzoiccvdf289[address] [place], [place] [address]Dr. Farhat Leal COMMENTS NO ORGANISMS OBSERVED Normal [facility] Comment on above: Performed By: #### G STAIN ####[facility] Pryvwvvsan[address] [place] [address]Dr. Farhat Leal DIPHTHEROIDS Normal The [facility] Comment on above: Performed By: #### G STAIN ####[facility] Jhmdrbeuci[address] [place] [address]Dr. Farhat Leal EPITHELIALS Normal [facility] Comment on above: Performed By: #### G STAIN ####[facility] Mvaxtjnbev[address] [place], [place] [address]Dr. Farhat Leal FUNGAL ELEMENTS Normal The [facility] Comment on above: Performed By: #### G STAIN ####[facility] Fpsvmauprw97[address] [place], [place] [address]Dr. Farhat Leal GRAM NEG BACILLI Normal The [facility] Comment on above: Performed By: #### G STAIN ####[facility] Nhsosevlki62[address] [place], [place] [address]Dr. Farhat Leal GRAM NEG DIPPLOCOCCI Normal [facility] Comment on above: Performed By: #### G STAIN ####[facility] Kmmljgsdqv8[address] [place], [place] [address]Dr. Farhat Leal GRAM POS BACILLI Normal The [facility] Comment on above: Performed By: #### G STAIN ####[facility] Gzsqguntff7650[address] [place], [place] [address]Dr. Farhat Leal GRAM POSITIVE COCCI Normal The [facility] Comment on above: Performed By: #### G STAIN ####[facility] Outyetheiu[address] [place] [address]Dr. Farhat Leal GRAM STAIN SOURCE RT CALCANEOUS Normal [facility] Comment on above: Performed By: #### G STAIN ####[facility] Jnalmhdcnt[address] [place], [place] [address]Dr. Farhat Leal GS_DIPTH Normal [facility] Comment on above: Performed By: #### G STAIN ####[facility] Dgzqmqabcp8[address] [place], [place] [address]Dr. Farhat Leal WBC RARE Normal [facility] Comment on above: Performed By: #### G STAIN ####[facility] Awdviyhlca[address] [place] [address]Dr. Farhat Leal DIPHTHEROIDS Normal [facility] Comment on above: Performed By: #### G STAIN ####[facility] Xmniayrnpd3836 [place] [address]Dr. Farhat Leal EPITHELIALS Normal [facility] Comment on above: Performed By: #### G STAIN ####[facility] Cjtjcgwidz7250 [place] [address]Dr. Farhat Leal FUNGAL ELEMENTS Normal The [facility] Comment on above: Performed By: #### G STAIN ####[facility] Qwbrqebudu7[address] [place], [place] [address]Dr. Farhat Leal GRAM NEG BACILLI FEW Normal The [facility] Comment on above: Performed By: #### G STAIN ####[facility] Jnnxvxpnoq40[address] [place], [place] [address]Dr. Farhat Leal GRAM NEG DIPPLOCOCCI Normal [facility] Comment on above: Performed By: #### G STAIN ####[facility] Lwwtcyxhma8198 [place] [address]Dr. Farhat Leal GRAM POS BACILLI Normal The [facility] Comment on above: Performed By: #### G STAIN ####[facility] Ranqszkirl217[address] [place], [place] [address]Dr. Farhat Leal GRAM POSITIVE COCCI FEW Normal [facility] Comment on above: Performed By: #### G STAIN ####[facility] Hhzsisoixe29[address] [place] [address]Dr. Farhat Leal GRAM STAIN SOURCE #2 Rt foot abscess Normal [facility] Comment on above: Performed By: #### G STAIN ####[facility] Ypkuoelets2699[address] [place], [place] [address]Dr. Farhat Leal GS_DIPTH Normal [facility] Comment on above: Performed By: #### G STAIN ####[facility] Lkezimtoai38[address] [place] [address]Dr. Farhat Leal WBC RARE Normal [facility] Comment on above: Performed By: #### G STAIN ####[facility] Bcichnehfj1552 [place] [address]Dr. Farhat Leal DIPHTHEROIDS Normal [facility] Comment on above: Performed By: #### G STAIN ####[facility] Xjwqkhzyzc3383 [place] [address]Dr. Farhat Leal EPITHELIALS Normal [facility] Comment on above: Performed By: #### G STAIN ####[facility] Dfythzemje6042 [place] [address]Dr. Farhat Leal FUNGAL ELEMENTS Normal The [facility] Comment on above: Performed By: #### G STAIN ####[facility] Dnqjeeadjc6479 [place] [address]Dr. Farhat Leal GRAM NEG BACILLI FEW Normal The [facility] Comment on above: Performed By: #### G STAIN ####[facility] Brluqoqyjr[address] [place], [place] [address]Dr. Farhat Leal GRAM NEG DIPPLOCOCCI Normal [facility] Comment on above: Performed By: #### G STAIN ####[facility] Jejvxbsioq6289[address] [place], [place] [address]Dr. Farhat Leal GRAM POS BACILLI Normal The [facility] Comment on above: Performed By: #### G STAIN ####[facility] Aceihohyia3220[address] [place], [place] [address]Dr. Farhat Leal GRAM POSITIVE COCCI FEW Normal The [facility] Comment on above: Performed By: #### G STAIN ####[facility] Vnsyxnhtpe[address] [place], [place] [address]Dr. Farhat Leal GRAM STAIN SOURCE #1 Rt foot abscess Normal [facility] Comment on above: Performed By: #### G STAIN ####[facility] Wsufegggjb1303 [place] [address]Dr. Farhat Leal GS_DIPTH Normal [facility] Comment on above: Performed By: #### G STAIN ####[facility] Uhqiqfhsar9663 [place] [address]Dr. Farhat Leal WBC NONE SEEN Normal [facility] Comment on above: Performed By: #### G STAIN ####[facility] Acgktqolee7144 [place] [address]Dr. Farhat Leal POINT OF CARE GLUCOSEon 11-15 Glucose [Mass/Vol] 331 mg/dL Critically high 74-106 [facility] Comment on above: Performed By: #### P OCGLUC ####[facility] Ncyiwzdlht7007 [place] [address]Dr. Farhat Leal Glucose [Mass/Vol] 236 mg/dL Critically high 74-106 [facility] Comment on above: Performed By: #### P OCGLUC ####[facility] Dmcceyzhwp2459 [place] [address]Dr. Farhat Leal PROF 14(COMP METB)on 022 Albumin [Mass/Vol] 1.6 g/dL Critically low 3.4-5.0 [facility] Comment on above: Performed By: #### B CLINICAL TECH, CMP, CRP ####[facility] Fxotcixvjc7969 [place] [address]Dr. Farhat Leal Albumin/Globulin [Mass ratio] 0.4 {ratio} Normal [facility] Comment on above: Performed By: #### B CLINICAL TECH, CMP, CRP ####[facility] Wrdyfplsff5373 [place] [address]Dr. Farhat Leal ALP [Catalytic activity/Vol] 94 U/L Normal 46-116 [facility] Comment on above: Performed By: #### B CLINICAL TECH, CMP, CRP ####[facility] Brhtbvmhad8316 [place] [address]Dr. Farhat Leal ALT [Catalytic activity/Vol] 49 U/L Normal 16-63 [facility] Comment on above: Performed By: #### B CLINICAL TECH, CMP, CRP ####[facility] Msnqjlreak8720 [place] [address]Dr. Farhat Leal Anion gap [Moles/Vol] 12.5 mmol/L Normal [facility] Comment on above: Performed By: #### B CLINICAL TECH, CMP, CRP ####[facility] Tzgdsunvdh6272 [place] [address]Dr. Farhat Leal AST [Catalytic activity/Vol] 102 U/L Critically high 15-37 [facility] Comment on above: Performed By: #### B CLINICAL TECH, CMP, CRP ####[facility] Oybjkhqbjk9073 [place] [address]Dr. Farhat Leal Bilirubin [Mass/Vol] 0.8 mg/dL Normal 0.2-1.0 [facility] Comment on above: Performed By: #### B CLINICAL TECH, CMP, CRP ####[facility] Ktmigugynx04[address] [place], [place] [address]Dr. Farhat Leal Calcium [Mass/Vol] 8.4 mg/dL Critically low 8.5-10.1 [facility] Comment on above: Performed By: #### B CLINICAL TECH, CMP, CRP ####[facility] Vgqoicbxpo224[address] [place], [place] [address]Dr. Farhat Leal Chloride [Moles/Vol] 96 mmol/L Critically low 98-107 [facility] Comment on above: Performed By: #### B CLINICAL TECH, CMP, CRP ####[facility] Ylaxusxthl346[address] [place], [place] [address]Dr. Farhat Leal CO2 [Moles/Vol] 24.8 mmol/L Normal 21.0-32.0 The [facility] Comment on above: Performed By: #### B CLINICAL TECH, CMP, CRP ####[facility] Zzucfxkjei229[address] [place], [place] [address]Dr. Farhat Leal Creatinine [Mass/Vol] 1.36 mg/dL Critically high 0.70-1.30 [facility] Comment on above: Performed By: #### B CLINICAL TECH, CMP, CRP ####[facility] Gbgqrgkwwd[address] [place], [place] [address]Dr. Farhat Leal EGFR-AF IRISH >60 Normal >=60 The [facility] Comment on above: Performed By: #### B CLINICAL TECH, CMP, CRP ####[facility] Heoyhhdctm6909[address] [place], [place] [address]Dr. Farhat Leal EGFR-NON AF IRISH 51 mL/min/1.73m2 Critically low >=60 [facility] Comment on above: Performed By: #### B CLINICAL TECH, CMP, CRP ####[facility] Umnvbthzfp3007 [place] [address]Dr. Farhat Leal Globulin (S) [Mass/Vol] 4.1 g/dL Normal [facility] Comment on above: Performed By: #### B CLINICAL TECH, CMP, CRP ####[facility] Iuqczpyuyo3106 [place] [address]Dr. Farhat Leal Glucose [Mass/Vol] 204 mg/dL Critically high 74-106 [facility] Comment on above: Performed By: #### B CLINICAL TECH, CMP, CRP ####[facility] Xlkrdxsqoy7987 [place] [address]Dr. Farhat Leal Potassium [Moles/Vol] 4.3 mmol/L Normal 3.5-5.1 [facility] Comment on above: Performed By: #### B CLINICAL TECH, CMP, CRP ####[facility] Vuvkvjarld6861 [place] [address]Dr. Farhat Leal Protein [Mass/Vol] 5.7 g/dL Critically low 6.4-8.2 [facility] Comment on above: Performed By: #### B CLINICAL TECH, CMP, CRP ####[facility] Prgfyrgfku1765 [place] [address]Dr. Farhat Leal Sodium [Moles/Vol] 129 mmol/L Critically low 136-145 [facility] Comment on above: Performed By: #### B CLINICAL TECH, CMP, CRP ####[facility] Jrplwfskwp1185 [place] [address]Dr. Farhat Leal Urea nitrogen [Mass/Vol] 41.0 mg/dL Critically high 7.0-18.0 [facility] Comment on above: Performed By: #### B CLINICAL TECH, CMP, CRP ####[facility] Bglibncqou6315 [place] [address]Dr. Farhat Leal Urea nitrogen/Creatinine [Mass ratio] 30.1 mg/mg Normal [facility] Comment on above: Performed By: #### B CLINICAL TECH, CMP, CRP ####[facility] Mbmuneihha[address] [place] [address]Dr. Farhat Leal PROTIMEon 11-24-2021 INR Coag (PPP) [Relative time] 2.20 {INR} Normal [facility] Comment on above: Performed By: #### P T ####[facility] Aucpngyupv3096 [place] [address]Dr. Farhat Leal INR GUIDELINES SEE BELOW Normal The [facility] Comment on above: Result Comment: MALINA RED INR: 2.0 - 3.0 CONDITIONS NOT LISTED BELOW 2.5 - 3.5 FOR PROSTHETIC HEART VALVE REPLACEMENT 2.5 - 3.5 RECURRENT THROMBOSIS Performed By: #### P T ####[facility] Vvotsddznx348[address] [place], [place] [address]Dr. Farhat Leal PT Coag (PPP) [Time] 22.6 s Critically high 9.0-11.6 [facility] Comment on above: Performed By: #### P T ####[facility] Mkzwypbmpk8[address] [place], [place] [address]Dr. Farhat Leal SED RATE [facility] 2021 SED RATE 80 mm/hr Critically high <=20 [facility] Comment on above: Performed By: #### S EDR ####[facility] Rgcrwljfzw[address] [place], [place] [address]Dr. Farhat Leal BLOOD CULTURE ID PANELon A. baumannii Not detected Normal NOT DETECTED The [facility] Comment on above: Performed By: #### B CID2 ####[facility] Vbloghmqep9810[address] [place], [place] [address]Dr. Farhat Leal Bacteriodes fragilis Not detected Normal NOT DETECTED [facility] Comment on above: Performed By: #### B CID2 ####[facility] Tlzemccpww1039[address] [place], [place] [address]Dr. Farhat Leal BCID CONTROLS PASSED Normal The [facility] Comment on above: Performed By: #### B CID2 ####[facility] Whpwmbdmsl735[address] [place], [place] [address]Dr. Farhat Leal BCIDBTHD BLOOD CULTURE BOTTLE INFORMATION Normal [facility] Comment on above: Performed By: #### B CID2 ####[facility] Wipgvjepic[address] [place], [place] [address]Dr. Farhat Leal BCIDHD1 ANTIMICROBIAL RESISTANCE GENES Normal [facility] Comment on above: Performed By: #### B CID2 ####[facility] Icjrqrwjns5350 [place] [id number]. Yilorri Leal BCIDHD2 SEE BELOW Normal [facility] Comment on above: Result Comment: Note : Antimicrobial resitance can occur via multiple mechanisms. A Not Detected result for the [employer] antomicrobial resistance gene assays does not indicate antimicrobial susceptibility. Subculturing is required for species identification and susceptibility testing of isolates. Performed By: #### B CID2 ####[facility] Vrehltnrva34[address] [place] [id number]. Farhat Leal BCIDHD3 Positive Normal [facility] Comment on above: Performed By: #### B CID2 ####[facility] Vldtomfwrm[address] [place], [place] [address]Dr. Farhat Leal BCIDHD4 Negative Normal [facility] Comment on above: Performed By: #### B CID2 ####[facility] Uitjenyjug5765[address] [place], [place] [address]Dr. Farhat Leal BCIDHD5 YEAST Normal [facility] Comment on above: Performed By: #### B CID2 ####[facility] Jyvzilknlf9[address] [place], [place] [address]Dr. Farhat Leal Bottle Set: Set 1 Normal [facility] Comment on above: Performed By: #### B CID2 ####[facility] Ywvzdiiojf7[address] [place], [place] [address]Dr. Farhat Leal Bottle: Aerobic Normal [facility] Comment on above: Performed By: #### B CID2 ####[facility] Dzydylnsiq7255 [place] [address]Dr. Yilorri Leal C. neoformans/gattii Not detected Normal NOT DETECTED [facility] Comment on above: Performed By: #### B CID2 ####[facility] Hmhbdupjmp437[address] [place], [place] [address]Dr. Yilorri Leal Disha albicans Not detected Normal NOT DETECTED [facility] Comment on above: Performed By: #### B CID2 ####[facility] Ujobspcyva[address] [place] [address]. Farhat Leal Disha auris Not detected Normal NOT DETECTED The [facility] Comment on above: Performed By: #### B CID2 ####[facility] Mzfalpekia[address] [place], [place] [address]Dr. Farhat Leal Disha glabrata Not detected Normal NOT DETECTED [facility] Comment on above: Performed By: #### B CID2 ####[facility] Jwleeoltbm2654 [place] [address]Dr. Farhat Leal Disha Krusei Not detected Normal NOT DETECTED The [facility] Comment on above: Performed By: #### B CID2 ####[facility] Gxjubrryqe[address] [place], [place] [address]Dr. Farhat Leal Disha Parapsilosis Not detected Normal NOT DETECTED [facility] Comment on above: Performed By: #### B CID2 ####[facility] Pajjbhzsjr9030[address] [place], [place] [address]Dr. Farhat Leal Disha Tropicalis Not detected Normal NOT DETECTED [facility] Comment on above: Performed By: #### B CID2 ####[facility] Gnspapxmph845[address] [place], [place] [address]Dr. Farhat Leal CTX-M Resistant Gene Not Applicable Normal NOT DETECTE D [facility] Comment on above: Performed By: #### B CID2 ####[facility] Dgdpazqnzd898[address] [place], [place] [address]Dr. Farhat Leal E. Cloacae complex Not detected Normal NOT DETECTED [facility] Comment on above: Performed By: #### B CID2 ####[facility] Xkuvtfnuif9970[address] [place], [place] [address]Dr. Farhat Leal E. faecalis Not detected Normal NOT DETECTED The [facility] Comment on above: Performed By: #### B CID2 ####[facility] Gfaoetdjuc649[address] [place], [place] [address]Dr. Farhat Leal E. faecium Not detected Normal NOT DETECTED The [facility] Comment on above: Performed By: #### B CID2 ####[facility] Covzprdibl826[address] [place], [place] [address]Dr. Farhat Leal Enterobacteriaceae Not detected Normal NOT DETECTED [facility] Comment on above: Performed By: #### B CID2 ####[facility] Nodnmqpovy4610[address] [place], [place] [address]Dr. Farhat Leal Escherichia coli Not detected Normal NOT DETECTED [facility] Comment on above: Performed By: #### B CID2 ####[facility] Rsqsihthzt517[address] [place], [place] [address]Dr. Farhat Leal H. influenzae Not detected Normal NOT DETECTED The [facility] Comment on above: Performed By: #### B CID2 ####[facility] Fbtthfjahg1550[address] [place], [place] [address]Dr. Farhat Leal IMP Resistant Gene Not Applicable Normal NOT DETECTED [facility] Comment on above: Performed By: #### B CID2 ####[facility] Raxzlaenpg119[address] [place], [place] [address]Dr. Farhat Leal K. oxytoca Not detected Normal NOT DETECTED The [facility] Comment on above: Performed By: #### B CID2 ####[facility] Pvbgsfylfj18[address] [place], [place] [address]Dr. Farhat Leal K. pneumoniae Not detected Normal NOT DETECTED The [facility] Comment on above: Performed By: #### B CID2 ####[facility] Fattmnvuvy4088[address] [place], [place] [address]Dr. Farhat Leal Klebsiella aerogenes Not detected Normal NOT DETECTED [facility] Comment on above: Performed By: #### B CID2 ####[facility] Ucojxdssir093[address] [place], [place] [address]Dr. Madelynlorri Leal KPC Resistant Gene Not Applicable Normal NOT DETECTED [facility] Comment on above: Performed By: #### B CID2 ####[facility] Pkgrlldhlh0933[address] [place], [place] [address]Dr. Farhat Leal List. monocytogenes Not detected Normal NOT DETECTED [facility] Comment on above: Performed By: #### B CID2 ####[facility] Stgarzvnlh9824[address] [place], [place] [address]Dr. Farhat Leal Mcr-1 Resistant Gene Not Applicable Normal NOT DETECTE D [facility] Comment on above: Performed By: #### B CID2 ####[facility] Jxhuumscvl6668 [place] [address]Dr. Farhat Elvis mecA/C Not Applicable Normal NOT DETECTED The [facility] Comment on above: Performed By: #### B CID2 ####[facility] Cueffmkcpg2572 [place] [address]Dr. Farhat Leal mecA/C MREJ Detected Abnormal NOT DETECTED The [facility] Comment on above: Performed By: #### B CID2 ####[facility] Uqztkyrbna[address] [place], [place] [address]Dr. Farhat Leal N. meningitidis Not detected Normal NOT DETECTED The [facility] Comment on above: Performed By: #### B CID2 ####[facility] Yrrtqnmavs89[address] [place], [place] [address]Dr. Farhat Leal NDM Resistant Gene Not Applicable Normal NOT DETECTED [facility] Comment on above: Performed By: #### B CID2 ####[facility] Wqjbnwwdsn[address] [place], [place] [address]Dr. Madelynlorri Elvis Oxa-48-like Not Applicable Normal NOT DETECTED The [facility] Comment on above: Performed By: #### B CID2 ####[facility] Psqprbtafi647[address] [place], [place] [address]Dr. Madelynlorri Leal Proteus Not detected Normal NOT DETECTED The [facility] Comment on above: Performed By: #### B CID2 ####[facility] Wprurehipj639[address] [place], [place] [address]Dr. Farhat Leal Pseud. aeruginosa Not detected Normal NOT DETECTED [facility] Comment on above: Performed By: #### B CID2 ####[facility] Bxavmuxgpr832[address] [place], [place] [address]Dr. Farhat Leal S. maltophilia Not detected Normal NOT DETECTED The [facility] Comment on above: Performed By: #### B CID2 ####[facility] Yruswqglzt855[address] [place], [place] [address]Dr. Farhat Lela Salmonella Not detected Normal NOT DETECTED The [facility] Comment on above: Performed By: #### B CID2 ####[facility] Elaedigoon8105 [place] [address]Dr. Farhat Leal Seratia marcescens Not detected Normal NOT DETECTED [facility] Comment on above: Performed By: #### B CID2 ####[facility] Lzsojtwxwh[address] [place], [place] [address]Dr. Farhat Leal Site: Rt Hand Normal [facility] Comment on above: Performed By: #### B CID2 ####[facility] Seerrnoeca6[address] [place] [address]Dr. Farhat Leal Staph. aureus Detected Abnormal NOT DETECTED The [facility] Comment on above: Performed By: #### B CID2 ####[facility] Yiksoowovb60[address] [place], [place] [address]Dr. Farhat Leal Staph. epidermidis Not detected Normal NOT DETECTED [facility] Comment on above: Performed By: #### B CID2 ####[facility] Zhkvqxspwq1197[address] [place], [place] [address]Dr. Farhat Leal Staph. lugdunensis Not detected Normal NOT DETECTED [facility] Comment on above: Performed By: #### B CID2 ####[facility] Dyjxukjilj9[address] [place], [place] [address]Dr. Madelynlorri Leal Staphylococcus Detected Abnormal NOT DETECTED The [facility] Comment on above: Performed By: #### B CID2 ####[facility] Ygkmyrmyij66[address] [place], [place] [address]Dr. Farhat Leal Strep. agalactiae Not detected Normal NOT DETECTED [facility] Comment on above: Performed By: #### B CID2 ####[facility] Dmbunmqncc[address] [place], [place] [address]Dr. Farhat Leal Strep. pneumoniae Not detected Normal NOT DETECTED [facility] Comment on above: Performed By: #### B CID2 ####[facility] Gizwebkcsi789[address] [place], [place] [address]Dr. Farhat Leal Strep. pyogenes Not detected Normal NOT DETECTED The [facility] Comment on above: Performed By: #### B CID2 ####[facility] Vowytclivo44[address] [place] [address]Dr. Farhat Leal Streptococcus Not detected Normal NOT DETECTED The [facility] Comment on above: Performed By: #### B CID2 ####[facility] Noqqyuincp0264 [place] [address]Dr. Farhat Leal Teodoro/B Resist. Gene Not Applicable Normal NOT DETECTED The [facility] Comment on above: Performed By: #### B CID2 ####[facility] Rdonotzxyz8869 [place] [address]Dr. Farhat Leal VIM Resistant Gene Not Applicable Normal NOT DETECTED [facility] Comment on above: Performed By: #### B CID2 ####[facility] Hwugdmbiwu[address] [place], [place] [address]Dr. Farhat Leal BNPon 11-23-2021 Natriuretic peptide B (Bld) [Mass/Vol] 04181.0 pg/mL Critically high <=1,800.0 [facility] Comment on above: Performed By: #### C MP, CMADM, BNP ####[facility] Omclhzujyj85[address] [place], [place] [address]Dr. Farhat Leal CARDIAC AMANDA ADMITon 022 CK [Catalytic activity/Vol] 41 U/L Normal 39-308 [facility] Comment on above: Performed By: #### C MP, CMADM, BNP ####[facility] Hgkikvehky[address] [place] [address]Dr. lorri Leal CK.MB [Mass/Vol] 0.98 ng/mL Normal <=3.60 The [facility] Comment on above: Performed By: #### C MP, CMADM, BNP ####[facility] Ikcvapjbkx[address] [place], [place] [address]Dr. Farhat Leal HSTROP 30.1 pg/mL Normal 4.0-76.1 [facility] Comment on above: Result Comment: CUT- OFF POINTS HAVE BEEN ESTABLISHED BASED ON THE FOURTH UNIVERSAL DEFINITIONS OF MYOCARDIALINFARCTION. THE UPPER REFERENCE LIMIT (URL) OF TROPONIN, DEFINED THE 99TH PERCENTILE OFcTnI DISTRIBUTION IN A REFERENCE POPULATION, HAS BEEN CONFIRMED THE DECISION THRESHOLDFOR [place] DIAGNOSIS. Performed By: #### C MP, CMADM, BNP ####[facility] Ltfbxhsbqt5381 [place] [id number]. Farhat Elvis VALERIA 160 ng/mL Critically high 16-96 [facility] Comment on above: Performed By: #### C MP, CMADM, BNP ####[facility] Kyyuevsjfn5509 [place] [phone]. Farhat Elvis CBC AUTO DIFFon 11-23-2021 BASO # 0.0 103/ul Normal 0.0-0.1 [facility] Comment on above: Performed By: #### C BC ####[facility] Nsqkewgtjo7596 [place] [address]Dr. Madelynlorri Leal Basophils/100 WBC (Bld) 0.2 % Normal 0.2-2.0 [facility] Comment on above: Performed By: #### C BC ####[facility] Nempzbunfq[address] [place], [place] [address]Dr. Farhat Leal EO # 0.0 103/ul Normal 0.0-0.7 [facility] Comment on above: Performed By: #### C BC ####[facility] Aijoyejnoa[address] [place], [place] [address]Dr. Madelynlorri Leal Eosinophils/100 WBC (Bld) 0.1 % Critically low 0.9-7.0 [facility] Comment on above: Performed By: #### C BC ####[facility] Vkkiurigtc[address] [place], [place] [address]Dr. Farhat Leal Erythrocyte distribution width (RBC) [Ratio] 13.4 % Normal 11.0-15.0 [facility] Comment on above: Performed By: #### C BC ####[facility] Avhtfdwkzm8[address] [place], [place] [address]Dr. Madelynlorri Leal Hematocrit (Bld) [Volume fraction] 31.6 % Critically low 42.0-54.0 [facility] Comment on above: Performed By: #### C BC ####[facility] Scozxyuxib88[address] [place], [place] [address]Dr. Farhat Leal Hemoglobin (Bld) [Mass/Vol] 10.4 g/dL Critically low 14.0-18.0 [facility] Comment on above: Performed By: #### C BC ####[facility] Pnssvirkku9567 [place] [address]DrSkylar Joshilorri Elvis IG # 0.11 10e3/ul Critically high 0.00-0.03 [facility] Comment on above: Performed By: #### C BC ####[facility] Znvpkcihqz9074 [place] [phone] Leal IG % 0.7 % Critically high 0.0-0.5 [facility] Comment on above: Performed By: #### C BC ####[facility] Mmlxrtgelq0659 [place] [address]DrSkylar Leal LYMPH # 0.5 103/ul Critically low 1.2-3.8 [facility] Comment on above: Performed By: #### C BC ####[facility] Rumjprqrow9837 [place] [address]DrSkylar Leal Lymphocytes/100 WBC (Bld) 2.8 % Critically low 20.5-60.0 [facility] Comment on above: Performed By: #### C BC ####[facility] Ksaqttpavd5249 [place] [address]DrSkylar Leal MANUAL DIFF REQ NO Normal [facility] Comment on above: Performed By: #### C BC ####[facility] Dbwfngierb1561 [place] [phone] Leal MCH (RBC) [Entitic mass] 29.8 pg Normal 25.9-34.0 [facility] Comment on above: Performed By: #### C BC ####[facility] Swvzwxgrmo4420 [place] [phone] Leal MCHC (RBC) [Mass/Vol] 32.9 g/dL Normal 29.9-35.2 [facility] Comment on above: Performed By: #### C BC ####[facility] Tybbatojfg3906 [place] [phone] Leal MCV (RBC) [Entitic vol] 90.5 fL Normal 80.0-94.0 [facility] Comment on above: Performed By: #### C BC ####[facility] Wxardddcub7277 [place] [phone]. Farhat Leal MONO # 1.3 103/ul Critically high 0.3-0.8 [facility] Comment on above: Performed By: #### C BC ####[facility] Gfysdjmrmu7843 [place] [phone]. Farhat Leal Monocytes/100 WBC (Bld) 8.3 % Normal 1.7-12.0 [facility] Comment on above: Performed By: #### C BC ####[facility] Uhziixqtbk0369 [place] [phone]. Farhat Leal NEUT # 13.9 103/ul Critically high 1.4-6.5 The [facility] Comment on above: Performed By: #### C BC ####[facility] Acqebocibb2831 [place] [address]Dr. Farhat Leal Neutrophils/100 WBC (Bld) 87.9 % Critically high 43.0-75.0 [facility] Comment on above: Performed By: #### C BC ####[facility] Vvsmkesoba5914 [place] [phone]. Farhat Leal Platelet mean volume (Bld) [Entitic vol] 9.3 fL Critically low 9.5-13.5 [facility] Comment on above: Performed By: #### C BC ####[facility] Cuttujgtni1906 [place] [phone]. Farhat Leal PLT 390 103/ul Normal 150-450 [facility] Comment on above: Performed By: #### C BC ####[facility] Enrhtiudip6973 [place] [phone]. Farhat Leal RBC 3.49 106/ul Critically low 4.70-6.10 [facility] Comment on above: Performed By: #### C BC ####[facility] Mqbcnjttpn1402 [place] [phone]. Farhat Leal WBC 15.9 103/ul Critically high 4.0-11.0 [facility] Comment on above: Performed By: #### C BC ####[facility] Kfkjmogqlm2813 [place], [place] [address]Tv. Far[address] Le[address] HEAD WO CONon 11-23-2021 CT HEAD WO CON Normal The [facility] CULTURE BLOODon 11-23-2021 Microscopic examination of blood, culture Culture Observations: NO GROWTH AT 5 DAYS. Normal [facility] Comment on above: Performed By: #### B LDCX2 ####[facility] Dfnyqqmxew5949 [place] [phone]. Farhat Leal Covid-19 PCR (CVDTBH)on SARS-CoV-2 (COVID-19) RNA JOSH+probe Ql (Unsp spec) Not detected Normal NOT DETECTED [facility] Comment on above: Result Comment: When diagnostic [...] for this test is supported by the [place] of Health and Human Service's declaration that [...] Performed By: #### C VDTBH ####[facility] Ghpyovdigy1530 [place] [phone]. Farhat Elvis LACTATE/LACTIC ACIDon 2021 Lactate [Moles/Vol] 1.3 mmol/L Normal 0.4-1.9 [facility] Comment on above: Performed By: #### L ACT ####[facility] Lyvverpnst1227 [place] [phone]. Madelynlorri Leal Lactate [Moles/Vol] 1.3 mmol/L Normal 0.4-1.9 [facility] Comment on above: Performed By: #### L ACT ####[facility] Gdotihgolb3336 [place] [address]Dr. Farhat Leal POINT OF CARE GLUCOSEon Glucose [Mass/Vol] 252 mg/dL Critically high 74-106 [facility] Comment on above: Performed By: #### P OCGLUC ####[facility] Lambsmnlww0986 [place] [address]Dr. Farhat Leal PROF 14(COMP METB)on 022 Albumin [Mass/Vol] 1.6 g/dL Critically low 3.4-5.0 [facility] Comment on above: Performed By: #### C MP, CMADM, BNP ####[facility] Hbfqtxqxvy4451 [place] [address]Dr. Farhat Leal Albumin/Globulin [Mass ratio] 0.4 {ratio} Normal [facility] Comment on above: Performed By: #### C MP, CMADM, BNP ####[facility] Boctedewti0936 [place] [address]Dr. Farhat Leal ALP [Catalytic activity/Vol] 98 U/L Normal 46-116 [facility] Comment on above: Performed By: #### C MP, CMADM, BNP ####[facility] Zoobdsptcv1697 [place] [address]Dr. Farhat Leal ALT [Catalytic activity/Vol] 52 U/L Normal 16-63 [facility] Comment on above: Performed By: #### C MP, CMADM, BNP ####[facility] Clfqrzxeyg6553 [place] [address]Dr. Farhat Leal Anion gap [Moles/Vol] 9.8 mmol/L Normal [facility] Comment on above: Performed By: #### C MP, CMADM, BNP ####[facility] Ngzquqcpga2118 [place] [address]Dr. Farhat Leal AST [Catalytic activity/Vol] 122 U/L Critically high 15-37 [facility] Comment on above: Performed By: #### C MP, CMADM, BNP ####[facility] Lhkshvbyjq0642 [place] [address]Dr. Farhat Leal Bilirubin [Mass/Vol] 0.7 mg/dL Normal 0.2-1.0 [facility] Comment on above: Performed By: #### C MP, CMADM, BNP ####[facility] Lqvnsynqgj[address] [place], [place] [address]Dr. Farhat Leal Calcium [Mass/Vol] 8.6 mg/dL Normal 8.5-10.1 [facility] Comment on above: Performed By: #### C MP, CMADM, BNP ####[facility] Fctegoouua6[address] [place], [place] [address]Dr. Farhat Leal Chloride [Moles/Vol] 95 mmol/L Critically low 98-107 [facility] Comment on above: Performed By: #### C MP, CMADM, BNP ####[facility] Fxppxmdwsx8[address] [place], [place] [address]Dr. Farhat Leal CO2 [Moles/Vol] 29.6 mmol/L Normal 21.0-32.0 [facility] Comment on above: Performed By: #### C MP, CMADM, BNP ####[facility] Smpsdnxweo58[address] [place], [place] [address]Dr. Farhat Leal Creatinine [Mass/Vol] 1.49 mg/dL Critically high 0.70-1.30 [facility] Comment on above: Performed By: #### C MP, CMADM, BNP ####[facility] Nxadzgyrln[address] [place], [place] [address]Dr. Farhat Leal EGFR-AF IRISH 55 mL/min/1.73m2 Critically low >=60 [facility] Comment on above: Performed By: #### C MP, CMADM, BNP ####[facility] Shmjzpxlsb6[address] [place], [place] [address]Dr. Farhat Leal EGFR-NON AF IRISH 46 mL/min/1.73m2 Critically low >=60 [facility] Comment on above: Performed By: #### C MP, CMADM, BNP ####[facility] Eufshkaawx5787 [place] [address]Dr. Farhat Leal Globulin (S) [Mass/Vol] 4.3 g/dL Normal [facility] Comment on above: Performed By: #### C MP, CMADM, BNP ####[facility] Okbddpcfvt9363 [place] [address]Dr. Farhat Leal Glucose [Mass/Vol] 213 mg/dL Critically high 74-106 [facility] Comment on above: Performed By: #### C MP, CMADM, BNP ####[facility] Ewkwvjpcbe9014 [place] [address]Dr. Farhat Leal Potassium [Moles/Vol] 4.4 mmol/L Normal 3.5-5.1 [facility] Comment on above: Performed By: #### C MP, CMADM, BNP ####[facility] Gpfoasmndw9655 [place] [address]Dr. Farhat Leal Protein [Mass/Vol] 5.9 g/dL Critically low 6.4-8.2 [facility] Comment on above: Performed By: #### C MP, CMADM, BNP ####[facility] Ivajyomxtz[address] [place], [place] [address]Dr. Farhat Leal Sodium [Moles/Vol] 130 mmol/L Critically low 136-145 [facility] Comment on above: Performed By: #### C MP, CMADM, BNP ####[facility] Xrmnabfhbu5375 [place] [address]Dr. Farhat Leal Urea nitrogen [Mass/Vol] 46.0 mg/dL Critically high 7.0-18.0 [facility] Comment on above: Performed By: #### C MP, CMADM, BNP ####[facility] Yxfjjrwmhd[address] [place], [place] [address]Dr. Farhat Leal Urea nitrogen/Creatinine [Mass ratio] 30.9 mg/mg Normal [facility] Comment on above: Performed By: #### C MP, CMADM, BNP ####[facility] Qftiuhkbpq2066 [place] [address]Dr. Farhat Leal PROTIMEon 11-23-2021 INR Coag (PPP) [Relative time] 2.55 {INR} Normal [facility] Comment on above: Performed By: #### P TT, PT ####[facility] Svtijxddsp3323 [place] [address]Dr. Farhat Leal INR GUIDELINES SEE BELOW Normal [facility] Comment on above: Result Comment: MALINA RED INR: 2.0 - 3.0 CONDITIONS NOT LISTED BELOW 2.5 - 3.5 FOR PROSTHETIC HEART VALVE REPLACEMENT 2.5 - 3.5 RECURRENT THROMBOSIS Performed By: #### P TT, PT ####[facility] Tlzggnbeco7376 [place] [address]Dr. Farhat Leal PT Coag (PPP) [Time] 25.9 s Critically high 9.0-11.6 [facility] Comment on above: Performed By: #### P TT, PT ####[facility] Lmcdvsqdlj[address] [place], [place] [address]Dr. Farhat Leal PTTon 11-23-2021 aPTT Coag (Bld) [Time] 39.9 s Critically high 22.3-36. 2 [facility] Comment on above: Performed By: #### P TT, PT ####[facility] Aeuwkgxwxi12[address] [place], [place] [address]Dr. Farhat Leal XR CHEST 1 Von 11-23-2021 XR CHEST 1 V Normal [facility] XR HEEL RT 2Von 11-23-2021 XR HEEL RT 2V Normal [facility] XR FOOT RT MIN 3 VIEWSon XR FOOT RT MIN 3 VIEWS Normal [facility] US ARTERY LEG RTon 2 US ARTERY LEG RT Normal The [facility] CBC AUTO DIFFon 09-24-2021 BASO # 0.1 103/ul Normal 0.0-0.1 [facility] Comment on above: Performed By: #### C BC ####[facility] Vprdpmrhfp7[address] [place], [place] [address]Dr. Farhat Leal Basophils/100 WBC (Bld) 0.7 % Normal 0.2-2.0 [facility] Comment on above: Performed By: #### C BC ####[facility] Hkfjywwgcp2939 [place] [id number]. Farhat Leal EO # 0.3 103/ul Normal 0.0-0.7 [facility] Comment on above: Performed By: #### C BC ####[facility] Ibalzdifjj5605 [place] [phone]. Farhat Leal Eosinophils/100 WBC (Bld) 3.9 % Normal 0.9-7.0 [facility] Comment on above: Performed By: #### C BC ####[facility] Ungpbhunys3898 [place] [address]Dr. Farhat Leal Erythrocyte distribution width (RBC) [Ratio] 12.6 % Normal 11.0-15.0 [facility] Comment on above: Performed By: #### C BC ####[facility] Ppwewlffvy[address] [place], [place] [address]Dr. Farhat Leal Hematocrit (Bld) [Volume fraction] 38.9 % Critically low 42.0-54.0 [facility] Comment on above: Performed By: #### C BC ####[facility] Vadgrhoaja7829 [place] [address]Dr. Farhat Leal Hemoglobin (Bld) [Mass/Vol] 12.8 g/dL Critically low 14.0-18.0 [facility] Comment on above: Performed By: #### C BC ####[facility] Jhcxkflrjx9[address] [place], [place] [address]Dr. Farhat Leal IG # 0.10 10e3/ul Critically high 0.00-0.03 [facility] Comment on above: Performed By: #### C BC ####[facility] Wygwltymrq6308 [place] [address]Dr. Farhat Leal IG % 1.2 % Critically high 0.0-0.5 [facility] Comment on above: Performed By: #### C BC ####[facility] Spqxgtjckc45[address] [place], [place] [address]Dr. Farhat Leal LYMPH # 2.1 103/ul Normal 1.2-3.8 [facility] Comment on above: Performed By: #### C BC ####[facility] Kehlxzhykq2651 [place] [address]Dr. Farhat Elvis Lymphocytes/100 WBC (Bld) 25.9 % Normal 20.5-60.0 [facility] Comment on above: Performed By: #### C BC ####[facility] Jkdiqwcfzp4308 [place] [address]Dr. Madelynlorri Leal MANUAL DIFF REQ NO Normal [facility] Comment on above: Performed By: #### C BC ####[facility] Qxfhrttchi[address] [place], [place] [address]Dr. Madelynlorri Leal MCH (RBC) [Entitic mass] 31.1 pg Normal 25.9-34.0 [facility] Comment on above: Performed By: #### C BC ####[facility] Btojypeulw09[address] [place], [place] [address]Dr. Farhat Leal MCHC (RBC) [Mass/Vol] 32.9 g/dL Normal 29.9-35.2 [facility] Comment on above: Performed By: #### C BC ####[facility] Xpfxoxspuy6[address] [place], [place] [address]Dr. Madelynlorri Leal MCV (RBC) [Entitic vol] 94.6 fL Critically high 80.0-94.0 [facility] Comment on above: Performed By: #### C BC ####[facility] Vjcfsgzhia97[address] [place], [place] [address]Dr. Farhat Leal MONO # 1.2 103/ul Critically high 0.3-0.8 [facility] Comment on above: Performed By: #### C BC ####[facility] Szoctsmdoh8[address] [place], [place] [address]Dr. Farhat Leal Monocytes/100 WBC (Bld) 14.1 % Critically high 1.7-12.0 [facility] Comment on above: Performed By: #### C BC ####[facility] Gayytlbglz97[address] [place], [place] [address]Dr. Farhat Leal NEUT # 4.4 103/ul Normal 1.4-6.5 [facility] Comment on above: Performed By: #### C BC ####[facility] Hxbnorsvuq4904 [place] [id number]. Farhat Leal Neutrophils/100 WBC (Bld) 54.2 % Normal 43.0-75.0 [facility] Comment on above: Performed By: #### C BC ####[facility] Tpveqcqutq0288 [place] [phone]. Farhat Leal Platelet mean volume (Bld) [Entitic vol] 9.9 fL Normal 9.5-13.5 [facility] Comment on above: Performed By: #### C BC ####[facility] Wcbgfttmsn9430 [place] [phone]. Farhat Leal PLT 224 103/ul Normal 150-450 [facility] Comment on above: Performed By: #### C BC ####[facility] Arplkahdkm7161 [place] [address]Dr. Farhat Leal RBC 4.11 106/ul Critically low 4.70-6.10 [facility] Comment on above: Performed By: #### C BC ####[facility] Xzlakxfevo2263 [place] [id number]. Farhat Leal WBC 8.2 103/ul Normal 4.0-11.0 [facility] Comment on above: Performed By: #### C BC ####[facility] Nuixmqjges5499 [place] [phone]. Farhat Leal PROF CHEM 8 (BAS METB)on Anion gap [Moles/Vol] 9.6 mmol/L Normal [facility] Comment on above: Performed By: #### B MP ####[facility] Oadlrcummk2988 [place] [phone]. Farhat Leal Calcium [Mass/Vol] 8.6 mg/dL Normal 8.5-10.1 [facility] Comment on above: Performed By: #### B MP ####[facility] Ttecuywymf7154 [place] [phone]. Farhat Leal Chloride [Moles/Vol] 94 mmol/L Critically low 98-107 [facility] Comment on above: Performed By: #### B MP ####[facility] Skqxpfnuza4059 [place] [phone]. Farhat Leal CO2 [Moles/Vol] 28.1 mmol/L Normal 21.0-32.0 [facility] Comment on above: Performed By: #### B MP ####[facility] Lixdrqnact1253 [place] [id number]. Farhat Elvis Creatinine [Mass/Vol] 1.91 mg/dL Critically high 0.70-1.30 [facility] Comment on above: Performed By: #### B MP ####[facility] Cucupspuuf3630 [place] [id number]. Farhat Leal EGFR-AF IRISH 42 mL/min/1.73m2 Critically low >=60 [facility] Comment on above: Performed By: #### B MP ####[facility] Nlojnxtetk0098 [place] [id number]. Farhat Leal EGFR-NON AF IRISH 34 mL/min/1.73m2 Critically low >=60 [facility] Comment on above: Performed By: #### B MP ####[facility] Tvacuiecub5305 [place] [id number]. Madelynlorri Elvis Glucose [Mass/Vol] 314 mg/dL Critically high 74-106 [facility] Comment on above: Performed By: #### B MP ####[facility] Jfyaomuyls2080 [place] [id number]. Farhat Leal Potassium [Moles/Vol] 4.7 mmol/L Normal 3.5-5.1 [facility] Comment on above: Performed By: #### B MP ####[facility] Jbxepfwodw5743 [place] [id number]. Farhat Leal Sodium [Moles/Vol] 127 mmol/L Critically low 136-145 [facility] Comment on above: Performed By: #### B MP ####[facility] Fbvgslgjwt4946 [place] [id number]. Farhat Leal Urea nitrogen [Mass/Vol] 79.0 mg/dL Critically high 7.0-18.0 [facility] Comment on above: Result Comment: repe ated Performed By: #### B MP ####[facility] Rcoewtstaq88[address] [place], [place] [address]Dr. Farhat Elvis Urea nitrogen/Creatinine [Mass ratio] 41.4 mg/mg Normal [facility] Comment on above: Performed By: #### B MP ####[facility] Uggmxvauhs996[address] [place], [place] [address]Dr. Farhat Elvis PTT HEPARIN MONITORon 2021 aPTT Coag (Bld) [Time] 42.7 s Normal 39.5-54.2 e [facility] Comment on above: Performed By: #### P TTHEP ####[facility] Pztahdkdsu17[address] [place], [place] [address]Dr. Farhat Elvis aPTT Coag (Bld) [Time] 56.7 s Critically high 39.5-54. 2 [facility] Comment on above: Performed By: #### P TTHEP ####[facility] Bmrdauezuf32[address] [place], [place] [address]Dr. Farhat Elvis CBC AUTO DIFFon 09-23-2021 BASO # 0.1 103/ul Normal 0.0-0.1 [facility] Comment on above: Performed By: #### C BC ####[facility] Tlxhqjdvxm34[address] [place], [place] [address]Dr. Farhat Leal Basophils/100 WBC (Bld) 0.6 % Normal 0.2-2.0 [facility] Comment on above: Performed By: #### C BC ####[facility] Utzmxvzddj9[address] [place], [place] [address]Dr. Farhat Leal EO # 0.2 103/ul Normal 0.0-0.7 [facility] Comment on above: Performed By: #### C BC ####[facility] Nhvguneaql38[address] [place], [place] [address]Dr. Farhat Leal Eosinophils/100 WBC (Bld) 2.6 % Normal 0.9-7.0 [facility] Comment on above: Performed By: #### C BC ####[facility] Yvkbexjdtq2578 [place] [address]Dr. Farhat Leal Erythrocyte distribution width (RBC) [Ratio] 12.4 % Normal 11.0-15.0 [facility] Comment on above: Performed By: #### C BC ####[facility] Wrzmlyolpn6878 [place] [address]Dr. Farhat Leal Hematocrit (Bld) [Volume fraction] 38.4 % Critically low 42.0-54.0 [facility] Comment on above: Performed By: #### C BC ####[facility] Okiaiffvmw9833[address] [place], [place] [address]Dr. Farhat Leal Hemoglobin (Bld) [Mass/Vol] 12.8 g/dL Critically low 14.0-18.0 [facility] Comment on above: Performed By: #### C BC ####[facility] Vmadxplolx95[address] [place], [place] [address]Dr. Farhat Leal IG # 0.06 10e3/ul Critically high 0.00-0.03 [facility] Comment on above: Performed By: #### C BC ####[facility] Yczwoorhxr46[address] [place], [place] [address]Dr. Madelynlorri Leal IG % 0.8 % Critically high 0.0-0.5 [facility] Comment on above: Performed By: #### C BC ####[facility] Lryxrybvle[address] [place], [place] [address]Dr. Farhat Leal LYMPH # 1.5 103/ul Normal 1.2-3.8 [facility] Comment on above: Performed By: #### C BC ####[facility] Hylvibfqvh8[address] [place], [place] [address]Dr. Madelynlorri Leal Lymphocytes/100 WBC (Bld) 19.7 % Critically low 20.5-60.0 [facility] Comment on above: Performed By: #### C BC ####[facility] Nflwrrlxjv[address] [place], [place] [address]Dr. Madelynlorri Leal MANUAL DIFF REQ NO Normal [facility] Comment on above: Performed By: #### C BC ####[facility] Jcszwctexv2701 [place] [id number]. Farhat Leal MCH (RBC) [Entitic mass] 31.6 pg Normal 25.9-34.0 [facility] Comment on above: Performed By: #### C BC ####[facility] Ubnbkjewtb0003 [place] [address]Dr. Farhat Leal MCHC (RBC) [Mass/Vol] 33.3 g/dL Normal 29.9-35.2 [facility] Comment on above: Performed By: #### C BC ####[facility] Qyaxdbwhnq3864 [place] [id number]. Farhat Leal MCV (RBC) [Entitic vol] 94.8 fL Critically high 80.0-94.0 [facility] Comment on above: Performed By: #### C BC ####[facility] Nzhgitfmzu[address] [place], [place] [address]Dr. Farhat Elvis MONO # 1.0 103/ul Critically high 0.3-0.8 [facility] Comment on above: Performed By: #### C BC ####[facility] Gvsfegelkm5438 [place] [address]Dr. Farhat Leal Monocytes/100 WBC (Bld) 13.0 % Critically high 1.7-12.0 [facility] Comment on above: Performed By: #### C BC ####[facility] Lpgmyvgieg[address] [place], [place] [address]Dr. Farhat Leal NEUT # 4.9 103/ul Normal 1.4-6.5 [facility] Comment on above: Performed By: #### C BC ####[facility] [address] [place], [place] [address]Dr. Farhat Elvis Neutrophils/100 WBC (Bld) 63.3 % Normal 43.0-75.0 [facility] Comment on above: Performed By: #### C BC ####[facility] Gnvyfibvmg9[address] [place], [place] [address]Dr. Farhat Leal Platelet mean volume (Bld) [Entitic vol] 10.7 fL Normal 9.5-13.5 [facility] Comment on above: Performed By: #### C BC ####[facility] Ggityxlcxl1186 [place] [id number]. Farhat Elvis PLT 205 103/ul Normal 150-450 [facility] Comment on above: Performed By: #### C BC ####[facility] Ksibliyndt87[address] [place] [id number]. Farhat Elvis RBC 4.05 106/ul Critically low 4.70-6.10 [facility] Comment on above: Performed By: #### C BC ####[facility] Fmrpdcppln2505 [place] [id number]. Madelynlorri Elvis WBC 7.7 103/ul Normal 4.0-11.0 [facility] Comment on above: Performed By: #### C BC ####[facility] Oacjvkzrhz84[address] [place] [address]Dr. Farhat Leal PROF CHEM 8 (BAS METB)on Anion gap [Moles/Vol] 15.5 mmol/L Normal [facility] Comment on above: Performed By: #### B MP ####[facility] Ptamjcrnto4885 [place] [phone]. Farhat Leal Calcium [Mass/Vol] 9.1 mg/dL Normal 8.5-10.1 [facility] Comment on above: Performed By: #### B MP ####[facility] Tiuwxpxhrv7[address] [place] [address]Dr. Farhat Leal Chloride [Moles/Vol] 92 mmol/L Critically low 98-107 [facility] Comment on above: Performed By: #### B MP ####[facility] Metpssbyop4999 [place] [id number]. Farhat Leal CO2 [Moles/Vol] 28.5 mmol/L Normal 21.0-32.0 [facility] Comment on above: Performed By: #### B MP ####[facility] Ltqhpxyzpf9892 [place] [id number]. Farhat Leal Creatinine [Mass/Vol] 1.84 mg/dL Critically high 0.70-1.30 [facility] Comment on above: Performed By: #### B MP ####[facility] Vkjkdvzojb5065 [place] [id number]. Farhat Leal EGFR-AF IRISH 44 mL/min/1.73m2 Critically low >=60 [facility] Comment on above: Performed By: #### B MP ####[facility] Cnmentyvtg3292 [place] [id number]. Farhat Leal EGFR-NON AF IRISH 36 mL/min/1.73m2 Critically low >=60 [facility] Comment on above: Performed By: #### B MP ####[facility] Erqairydic9945 [place] [id number]. Farhat Leal Glucose [Mass/Vol] 267 mg/dL Critically high 74-106 [facility] Comment on above: Performed By: #### B MP ####[facility] Zizhrljuov7544 [place] [address]Dr. Farhat Leal Potassium [Moles/Vol] 5.0 mmol/L Normal 3.5-5.1 [facility] Comment on above: Performed By: #### B MP ####[facility] Hntojuozpg[address] [place], [place] [address]Dr. Farhat Leal Sodium [Moles/Vol] 131 mmol/L Critically low 136-145 [facility] Comment on above: Performed By: #### B MP ####[facility] Xvzprioyuh6941 [place] [address]Dr. Farhat Leal Urea nitrogen [Mass/Vol] 76.0 mg/dL Critically high 7.0-18.0 [facility] Comment on above: Performed By: #### B MP ####[facility] Mnfhognqmo2613 [place] [address]Dr. Farhat Leal Urea nitrogen/Creatinine [Mass ratio] 41.3 mg/mg Normal [facility] Comment on above: Performed By: #### B MP ####[facility] Aznqomqrcn5290 [place] [address]Dr. Farhat Leal PTT HEPARIN MONITORon 2021 aPTT Coag (Bld) [Time] 57.2 s Critically high 39.5-54. 2 [facility] Comment on above: Performed By: #### P TTHEP ####[facility] Omsbfcbewp[address] [place], [place] [address]Dr. Farhat Leal aPTT Coag (Bld) [Time] 74.7 s Critically high 39.5-54. 2 [facility] Comment on above: Result Comment: repe ated Performed By: #### P TTHEP ####[facility] Acurztvqxp28[address] [place], [place] [address]Dr. Farhat Elvis aPTT Coag (Bld) [Time] 45.5 s Normal 39.5-54.2 [facility] Comment on above: Performed By: #### P TTHEP ####[facility] Jfzxvledns[address] [place], [place] [address]Dr. Farhat Elvis CBC AUTO DIFFon 09-22-2021 BASO # 0.1 103/ul Normal 0.0-0.1 [facility] Comment on above: Performed By: #### C BC ####[facility] Mimgtczwgt9534[address] [place], [place] [address]Dr. Farhat Leal Basophils/100 WBC (Bld) 0.7 % Normal 0.2-2.0 [facility] Comment on above: Performed By: #### C BC ####[facility] Nubjthrkzf09[address] [place], [place] [address]Dr. Madelynlorri Elvis EO # 0.3 103/ul Normal 0.0-0.7 [facility] Comment on above: Performed By: #### C BC ####[facility] Ntxteohxsq035[address] [place], [place] [address]Dr. Farhat Leal Eosinophils/100 WBC (Bld) 3.2 % Normal 0.9-7.0 [facility] Comment on above: Performed By: #### C BC ####[facility] Zwbzcoaxkd109[address] [place], [place] [address]Dr. Madelynlorri Elvis Erythrocyte distribution width (RBC) [Ratio] 12.5 % Normal 11.0-15.0 [facility] Comment on above: Performed By: #### C BC ####[facility] Uimzruieqd7916 [place] [address]Dr. Farhat Leal Hematocrit (Bld) [Volume fraction] 40.5 % Critically low 42.0-54.0 [facility] Comment on above: Performed By: #### C BC ####[facility] Mokqxruauq5261 [place] [address]Dr. Farhat Leal Hemoglobin (Bld) [Mass/Vol] 13.4 g/dL Critically low 14.0-18.0 [facility] Comment on above: Performed By: #### C BC ####[facility] Adenbiexfh83[address] [place], [place] [address]Dr. Farhat Leal IG # 0.11 10e3/ul Critically high 0.00-0.03 [facility] Comment on above: Performed By: #### C BC ####[facility] Blcvxvayyj632[address] [place], [place] [address]Dr. Farhat Leal IG % 1.3 % Critically high 0.0-0.5 [facility] Comment on above: Performed By: #### C BC ####[facility] Rrcfaasvdc0013[address] [place], [place] [address]Dr. Farhat Leal LYMPH # 1.7 103/ul Normal 1.2-3.8 [facility] Comment on above: Performed By: #### C BC ####[facility] Sflgudzmqh127[address] [place], [place] [address]Dr. Farhat Leal Lymphocytes/100 WBC (Bld) 19.6 % Critically low 20.5-60.0 [facility] Comment on above: Performed By: #### C BC ####[facility] Nlqajdzlsu027[address] [place], [place] [address]Dr. Farhat Leal MANUAL DIFF REQ NO Normal [facility] Comment on above: Performed By: #### C BC ####[facility] Vawyrraizt[address] [place], [place] [address]Dr. Farhat Leal MCH (RBC) [Entitic mass] 31.1 pg Normal 25.9-34.0 [facility] Comment on above: Performed By: #### C BC ####[facility] Byktugnmqq2168 [place] [phone]. Farhat Leal MCHC (RBC) [Mass/Vol] 33.1 g/dL Normal 29.9-35.2 [facility] Comment on above: Performed By: #### C BC ####[facility] Fsgbgikumu[address] [place], [place] [id number]. Farhat Elvis MCV (RBC) [Entitic vol] 94.0 fL Normal 80.0-94.0 [facility] Comment on above: Performed By: #### C BC ####[facility] Ihdehakirr46[address] [place], [place] [address]Dr. Farhat Elvis MONO # 1.1 103/ul Critically high 0.3-0.8 [facility] Comment on above: Performed By: #### C BC ####[facility] Itdhzftwup5834[address] [place], [place] [address]Dr. Farhat Leal Monocytes/100 WBC (Bld) 12.7 % Critically high 1.7-12.0 [facility] Comment on above: Performed By: #### C BC ####[facility] Twatmwgceu[address] [place], [place] [address]Dr. Farhat Leal NEUT # 5.3 103/ul Normal 1.4-6.5 [facility] Comment on above: Performed By: #### C BC ####[facility] Mqebwvmbgp283[address] [place], [place] [address]Dr. Farhat Leal Neutrophils/100 WBC (Bld) 62.5 % Normal 43.0-75.0 [facility] Comment on above: Performed By: #### C BC ####[facility] Jhsjuvpugq2[address] [place], [place] [address]Dr. Farhat Leal Platelet mean volume (Bld) [Entitic vol] 10.1 fL Normal 9.5-13.5 [facility] Comment on above: Performed By: #### C BC ####[facility] Mhjaccdgca13[address] [place], [place] [address]Dr. Farhat Leal PLT 220 103/ul Normal 150-450 [facility] Comment on above: Performed By: #### C BC ####[facility] Qczuhpynne7773 [place] [id number]. Farhat Leal RBC 4.31 106/ul Critically low 4.70-6.10 [facility] Comment on above: Performed By: #### C BC ####[facility] Geolpesgyh4957 [place] [id number]. Farhat Leal WBC 8.4 103/ul Normal 4.0-11.0 [facility] Comment on above: Performed By: #### C BC ####[facility] Jmaboswvfn0690 [place] [id number]. Farhat Leal PROF CHEM 8 (BAS METB)on Anion gap [Moles/Vol] 15.5 mmol/L Normal [facility] Comment on above: Performed By: #### B MP ####[facility] Gadevyotuh9181 [place] [address]Dr. Farhat Leal Calcium [Mass/Vol] 8.9 mg/dL Normal 8.5-10.1 [facility] Comment on above: Performed By: #### B MP ####[facility] Ajzvuwqsbk95[address] [place], [place] [address]Dr. Farhat Leal Chloride [Moles/Vol] 92 mmol/L Critically low 98-107 [facility] Comment on above: Performed By: #### B MP ####[facility] Nhgnnbrchu7745 [place] [address]Dr. Farhat Leal CO2 [Moles/Vol] 25.7 mmol/L Normal 21.0-32.0 [facility] Comment on above: Performed By: #### B MP ####[facility] Xbftuxeeoe9801 [place] [address]Dr. Farhat Leal Creatinine [Mass/Vol] 1.85 mg/dL Critically high 0.70-1.30 [facility] Comment on above: Performed By: #### B MP ####[facility] Ubfotkbigk5129 [place] [address]Dr. Farhat Leal EGFR-AF IRISH 43 mL/min/1.73m2 Critically low >=60 [facility] Comment on above: Performed By: #### B MP ####[facility] Agkobbqpem8881 [place] [address]Dr. Farhat Leal EGFR-NON AF IRISH 36 mL/min/1.73m2 Critically low >=60 [facility] Comment on above: Performed By: #### B MP ####[facility] Uaucbyntsa6812 [place] [address]Dr. Farhat Leal Glucose [Mass/Vol] 410 mg/dL Critically high 74-106 [facility] Comment on above: Performed By: #### B MP ####[facility] Grbownndqw1322 [place] [address]Dr. Farhat Leal Potassium [Moles/Vol] 5.2 mmol/L Critically high 3.5-5.1 [facility] Comment on above: Performed By: #### B MP ####[facility] Tdftlmmxgj2[address] [place], [place] [address]Dr. Farhat Leal Sodium [Moles/Vol] 128 mmol/L Critically low 136-145 [facility] Comment on above: Performed By: #### B MP ####[facility] Rrmnahbdod35[address] [place], [place] [address]Dr. Farhat Leal Urea nitrogen [Mass/Vol] 75.0 mg/dL Critically high 7.0-18.0 [facility] Comment on above: Performed By: #### B MP ####[facility] Bpavkepagc3864[address] [place], [place] [address]Dr. Farhat Leal Urea nitrogen/Creatinine [Mass ratio] 40.5 mg/mg Normal [facility] Comment on above: Performed By: #### B MP ####[facility] Syyhdizzrc6[address] [place], [place] [address]Dr. Farhat Leal PTT HEPARIN MONITORon 2021 aPTT Coag (Bld) [Time] 51.2 s Normal 39.5-54.2 [facility] Comment on above: Performed By: #### P TTHEP ####[facility] Quccmfuzrv[address] [place], [place] [address]Dr. Farhat Leal aPTT Coag (Bld) [Time] 55.6 s Critically high 39.5-54. 2 [facility] Comment on above: Performed By: #### P TTHEP ####[facility] Qxbajqxkbf57[address] [place], [place] [address]Dr. Farhat Leal aPTT Coag (Bld) [Time] 46.1 s Normal 39.5-54.2 [facility] Comment on above: Performed By: #### P TTHEP ####[facility] Efonvifoew[address] [place], [place] [address]Dr. Farhat Leal aPTT Coag (Bld) [Time] 53.8 s Normal 39.5-54.2 [facility] Comment on above: Performed By: #### P TTHEP ####[facility] Rxsdfkanpl3064[address] [place], [place] [address]Dr. Farhat Elvis CBC AUTO DIFFon 09-21-2021 BASO # 0.1 103/ul Normal 0.0-0.1 [facility] Comment on above: Performed By: #### C BC ####[facility] Rmambxikob7[address] [place], [place] [address]Dr. Farhat Elvis Basophils/100 WBC (Bld) 0.8 % Normal 0.2-2.0 [facility] Comment on above: Performed By: #### C BC ####[facility] Vhllenyjgw65[address] [place], [place] [address]Dr. Farhat Elvis EO # 0.4 103/ul Normal 0.0-0.7 [facility] Comment on above: Performed By: #### C BC ####[facility] Oovtpisxcl9225[address] [place], [place] [address]Dr. Farhat Elvis Eosinophils/100 WBC (Bld) 4.3 % Normal 0.9-7.0 [facility] Comment on above: Performed By: #### C BC ####[facility] Forifikifc6879[address] [place], [place] [address]Dr. Farhat Leal Erythrocyte distribution width (RBC) [Ratio] 12.5 % Normal 11.0-15.0 [facility] Comment on above: Performed By: #### C BC ####[facility] Yysmfjctuc[address] [place] [address]Dr. Farhat Leal Hematocrit (Bld) [Volume fraction] 40.8 % Critically low 42.0-54.0 [facility] Comment on above: Performed By: #### C BC ####[facility] Hiihrjiwze5950 [place] [address]Dr. Madelynlorri Leal Hemoglobin (Bld) [Mass/Vol] 13.5 g/dL Critically low 14.0-18.0 [facility] Comment on above: Performed By: #### C BC ####[facility] Vegdtbpjfk39[address] [place], [place] [address]Dr. Farhat Leal IG # 0.10 10e3/ul Critically high 0.00-0.03 [facility] Comment on above: Performed By: #### C BC ####[facility] Zecvuuwkra[address] [place], [place] [address]Dr. Farhat Leal IG % 1.2 % Critically high 0.0-0.5 [facility] Comment on above: Performed By: #### C BC ####[facility] Loumuqhbnr049[address] [place], [place] [address]Dr. Madelynlorri Leal LYMPH # 1.3 103/ul Normal 1.2-3.8 [facility] Comment on above: Performed By: #### C BC ####[facility] Vvmimnuckv335[address] [place], [place] [address]Dr. Farhat Leal Lymphocytes/100 WBC (Bld) 15.4 % Critically low 20.5-60.0 [facility] Comment on above: Performed By: #### C BC ####[facility] Vmbfyzgshh9[address] [place], [place] [address]Dr. Madelynlorri Leal MANUAL DIFF REQ NO Normal [facility] Comment on above: Performed By: #### C BC ####[facility] Dbiuxjbpyb3530 [place] [address]Dr. Farhat Leal MCH (RBC) [Entitic mass] 31.0 pg Normal 25.9-34.0 [facility] Comment on above: Performed By: #### C BC ####[facility] Hfukfulgey5772 [place] [id number]. Farhat Elvis MCHC (RBC) [Mass/Vol] 33.1 g/dL Normal 29.9-35.2 [facility] Comment on above: Performed By: #### C BC ####[facility] Olzdnmkhou9513 [place] [id number]. Farhat Leal MCV (RBC) [Entitic vol] 93.8 fL Normal 80.0-94.0 [facility] Comment on above: Performed By: #### C BC ####[facility] Wyiwkczi[address] [place], [place] [address]Dr. Farhat Leal MONO # 1.2 103/ul Critically high 0.3-0.8 [facility] Comment on above: Performed By: #### C BC ####[facility] Kvkyjfwztu66[address] [place], [place] [address]Dr. Farhat Leal Monocytes/100 WBC (Bld) 13.6 % Critically high 1.7-12.0 [facility] Comment on above: Performed By: #### C BC ####[facility] Awcjqbkvqm434[address] [place], [place] [address]Dr. Farhat Leal NEUT # 5.5 103/ul Normal 1.4-6.5 [facility] Comment on above: Performed By: #### C BC ####[facility] Jqnjywscyb[address] [place], [place] [address]Dr. Farhat Leal Neutrophils/100 WBC (Bld) 64.7 % Normal 43.0-75.0 [facility] Comment on above: Performed By: #### C BC ####[facility] Eirxseezwr13[address] [place], [place] [address]Dr. Farhat Leal Platelet mean volume (Bld) [Entitic vol] 9.8 fL Normal 9.5-13.5 [facility] Comment on above: Performed By: #### C BC ####[facility] Vtzhfzvpre[address] [place], [place] [address]Dr. Farhat Leal PLT 206 103/ul Normal 150-450 [facility] Comment on above: Performed By: #### C BC ####[facility] Lvxdwrqgoo1681 [place] [id number]. Farhat Leal RBC 4.35 106/ul Critically low 4.70-6.10 [facility] Comment on above: Performed By: #### C BC ####[facility] Jsvjrcqoku0616 [place] [id number]. Farhat Leal WBC 8.4 103/ul Normal 4.0-11.0 [facility] Comment on above: Performed By: #### C BC ####[facility] Xyrtcqqzco1925 [place] [id number]. Farhat Leal PROF CHEM 8 (BAS METB)on Anion gap [Moles/Vol] 12.3 mmol/L Normal [facility] Comment on above: Performed By: #### B MP ####[facility] Nigllcewon1198 [place] [address]Dr. Farhat Leal Calcium [Mass/Vol] 8.6 mg/dL Normal 8.5-10.1 [facility] Comment on above: Performed By: #### B MP ####[facility] Xntuhxqdad0830 [place] [address]Dr. Farhat Leal Chloride [Moles/Vol] 94 mmol/L Critically low 98-107 [facility] Comment on above: Performed By: #### B MP ####[facility] Bhqlvqvleh4366 [place] [id number]. Farhat Leal CO2 [Moles/Vol] 30.8 mmol/L Normal 21.0-32.0 [facility] Comment on above: Performed By: #### B MP ####[facility] Cnohfzgvwc5562 [place] [id number]. Farhat Leal Creatinine [Mass/Vol] 1.99 mg/dL Critically high 0.70-1.30 [facility] Comment on above: Performed By: #### B MP ####[facility] Cgjtrzltvv1458 [place] [address]Dr. Farhat Leal EGFR-AF IRISH 40 mL/min/1.73m2 Critically low >=60 [facility] Comment on above: Performed By: #### B MP ####[facility] Mqquousnly3531 [place] [address]Dr. Farhat Leal EGFR-NON AF IRISH 33 mL/min/1.73m2 Critically low >=60 [facility] Comment on above: Performed By: #### B MP ####[facility] Foojylpefr4799 [place] [address]Dr. Farhat Leal Glucose [Mass/Vol] 264 mg/dL Critically high 74-106 [facility] Comment on above: Performed By: #### B MP ####[facility] Irxrslhpbx30[address] [place], [place] [address]Dr. Farhat Leal Potassium [Moles/Vol] 5.1 mmol/L Normal 3.5-5.1 [facility] Comment on above: Performed By: #### B MP ####[facility] Lexngqgtko3[address] [place], [place] [address]Dr. Farhat Leal Sodium [Moles/Vol] 132 mmol/L Critically low 136-145 [facility] Comment on above: Performed By: #### B MP ####[facility] Fopprnkmfe9[address] [place], [place] [address]Dr. Farhat Leal Urea nitrogen [Mass/Vol] 72.0 mg/dL Critically high 7.0-18.0 [facility] Comment on above: Performed By: #### B MP ####[facility] Drvlkgnaxu[address] [place], [place] [address]Dr. Farhat Leal Urea nitrogen/Creatinine [Mass ratio] 36.2 mg/mg Normal [facility] Comment on above: Performed By: #### B MP ####[facility] Hwjnlwrfbf08[address] [place], [place] [address]Dr. Farhat Leal PTT HEPARIN MONITORon 2021 aPTT Coag (Bld) [Time] 45.3 s Normal 39.5-54.2 [facility] Comment on above: Performed By: #### P TTHEP ####[facility] Mgghfpvqhs23[address] [place], [place] [address]Dr. Farhat Leal aPTT Coag (Bld) [Time] 68.0 s Critically high 39.5-54. 2 [facility] Comment on above: Performed By: #### P TTHEP ####[facility] Lwhbdtcmuc[address] [place], [place] [address]Dr. Farhat Leal aPTT Coag (Bld) [Time] 69.4 s Critically high 39.5-54. 2 [facility] Comment on above: Performed By: #### P TTHEP ####[facility] Tgpdovmklg6[address] [place], [place] [address]Dr. Farhat Leal aPTT Coag (Bld) [Time] 53.5 s Normal 39.5-54.2 [facility] Comment on above: Performed By: #### P TTHEP ####[facility] Ggogologoj9714[address] [place], [place] [address]Dr. Farhat Elvis aPTT Coag (Bld) [Time] 126.9 s Critically high 39.5-54. 2 [facility] Comment on above: Performed By: #### P TTHEP ####[facility] Xnkstwwqkc75[address] [place], [place] [address]Dr. Farhat Elvis CBC AUTO DIFFon 09-20-2021 BASO # 0.1 103/ul Normal 0.0-0.1 [facility] Comment on above: Performed By: #### C BC ####[facility] Vzoxeuqnra[address] [place], [place] [address]Dr. Farhat Leal Basophils/100 WBC (Bld) 0.7 % Normal 0.2-2.0 [facility] Comment on above: Performed By: #### C BC ####[facility] Jszrromohq9470[address] [place], [place] [address]Dr. Farhat Leal EO # 0.2 103/ul Normal 0.0-0.7 [facility] Comment on above: Performed By: #### C BC ####[facility] Pnhipmbxcy11[address] [place], [place] [address]Dr. Farhat Leal Eosinophils/100 WBC (Bld) 3.2 % Normal 0.9-7.0 [facility] Comment on above: Performed By: #### C BC ####[facility] Sujotfvmgx3042 [place] [address]Dr. Farhat Leal Erythrocyte distribution width (RBC) [Ratio] 12.4 % Normal 11.0-15.0 [facility] Comment on above: Performed By: #### C BC ####[facility] Vibefrpsue7918 [place] [address]Dr. Farhat Leal Hematocrit (Bld) [Volume fraction] 40.1 % Critically low 42.0-54.0 [facility] Comment on above: Performed By: #### C BC ####[facility] Guokocavrp[address] [place], [place] [address]Dr. Farhat Leal Hemoglobin (Bld) [Mass/Vol] 13.4 g/dL Critically low 14.0-18.0 [facility] Comment on above: Performed By: #### C BC ####[facility] Yfelhqbkws[address] [place], [place] [address]Dr. Farhat Leal IG # 0.08 10e3/ul Critically high 0.00-0.03 [facility] Comment on above: Performed By: #### C BC ####[facility] Cydgbanxjg8[address] [place], [place] [address]Dr. Farhat Leal IG % 1.1 % Critically high 0.0-0.5 [facility] Comment on above: Performed By: #### C BC ####[facility] Gsdwnhhgca[address] [place], [place] [address]Dr. Farhat Leal LYMPH # 1.3 103/ul Normal 1.2-3.8 [facility] Comment on above: Performed By: #### C BC ####[facility] Mjeyxafbdr18[address] [place], [place] [address]Dr. Farhat Leal Lymphocytes/100 WBC (Bld) 17.3 % Critically low 20.5-60.0 [facility] Comment on above: Performed By: #### C BC ####[facility] Yldorpjphq98[address] [place], [place] [address]Dr. Farhat Leal MANUAL DIFF REQ NO Normal [facility] Comment on above: Performed By: #### C BC ####[facility] Xabmzqkdak3264 [place] [id number]. Farhat Leal MCH (RBC) [Entitic mass] 31.2 pg Normal 25.9-34.0 [facility] Comment on above: Performed By: #### C BC ####[facility] Dpqzvhurvw9763 [place] [id number]. Farhat Leal MCHC (RBC) [Mass/Vol] 33.4 g/dL Normal 29.9-35.2 [facility] Comment on above: Performed By: #### C BC ####[facility] Oljapadmkl[address] [place] [address]Dr. Farhat Elvis MCV (RBC) [Entitic vol] 93.3 fL Normal 80.0-94.0 [facility] Comment on above: Performed By: #### C BC ####[facility] Uidljkhlkg[address] [place], [place] [address]Dr. Farhat Elvis MONO # 0.9 103/ul Critically high 0.3-0.8 [facility] Comment on above: Performed By: #### C BC ####[facility] Rrxmxjxxsf1591 [place] [address]Dr. Farhat Elvis Monocytes/100 WBC (Bld) 12.4 % Critically high 1.7-12.0 [facility] Comment on above: Performed By: #### C BC ####[facility] Xaynfvdmom[address] [place], [place] [address]Dr. Farhat Leal NEUT # 4.7 103/ul Normal 1.4-6.5 [facility] Comment on above: Performed By: #### C BC ####[facility] [address] [place], [place] [address]DrSkylar Farhat Elvis Neutrophils/100 WBC (Bld) 65.3 % Normal 43.0-75.0 [facility] Comment on above: Performed By: #### C BC ####[facility] Xtyglxajum3799 [place] [address]Dr. Farhat Elvis Platelet mean volume (Bld) [Entitic vol] 9.9 fL Normal 9.5-13.5 [facility] Comment on above: Performed By: #### C BC ####[facility] Fxnwwcsfon96[address] [place] [address]Dr. Farhat Leal PLT 180 103/ul Normal 150-450 [facility] Comment on above: Performed By: #### C BC ####[facility] Sqadnjakrd4132 [place] [address]Dr. Farhat Leal RBC 4.30 106/ul Critically low 4.70-6.10 [facility] Comment on above: Performed By: #### C BC ####[facility] Qyskevmyko4243 [place] [address]Dr. Farhat Leal WBC 7.2 103/ul Normal 4.0-11.0 [facility] Comment on above: Performed By: #### C BC ####[facility] Xrockyyhlr[address] [place], [place] [address]Dr. Farhat Leal PTT HEPARIN MONITORon 2021 aPTT Coag (Bld) [Time] 26.7 s Critically low 39.5-54.2 [facility] Comment on above: Performed By: #### P TTHEP ####[facility] Xrdfwwbeyy32[address] [place], [place] [address]Dr. Farhat Leal aPTT Coag (Bld) [Time] 121.0 s Critically high 39.5-54. 2 [facility] Comment on above: Performed By: #### P TTHEP ####[facility] Zqcghpxykq53[address] [place], [place] [address]Dr. Farhat Leal aPTT Coag (Bld) [Time] 27.6 s Critically low 39.5-54.2 [facility] Comment on above: Performed By: #### P TTHEP ####[facility] Mshfflcqfe36[address] [place], [place] [address]Dr. Farhat Leal aPTT Coag (Bld) [Time] 139.0 s Critically high 39.5-54. 2 [facility] Comment on above: Performed By: #### P TTHEP ####[facility] Cgunyyiali[address] [place] [address]Dr. Farhat Leal CBC AUTO DIFFon 09-19-2021 BASO # 0.0 103/ul Normal 0.0-0.1 [facility] Comment on above: Performed By: #### C BC ####[facility] Vvfczprtmi25[address] [place], [place] [address]Dr. Farhat Leal Basophils/100 WBC (Bld) 0.5 % Normal 0.2-2.0 [facility] Comment on above: Performed By: #### C BC ####[facility] Augjmfgqmj232[address] [place], [place] [address]Dr. Farhat Leal EO # 0.2 103/ul Normal 0.0-0.7 [facility] Comment on above: Performed By: #### C BC ####[facility] Uzxpvyuham[address] [place], [place] [address]Dr. Madelynlorri Leal Eosinophils/100 WBC (Bld) 2.6 % Normal 0.9-7.0 [facility] Comment on above: Performed By: #### C BC ####[facility] Lfctcqcazf12[address] [place], [place] [address]Dr. Farhat Leal Erythrocyte distribution width (RBC) [Ratio] 12.5 % Normal 11.0-15.0 [facility] Comment on above: Performed By: #### C BC ####[facility] Gshahhdqjw[address] [place], [place] [address]Dr. Farhat Leal Hematocrit (Bld) [Volume fraction] 39.2 % Critically low 42.0-54.0 [facility] Comment on above: Performed By: #### C BC ####[facility] Fbuxeyexml8367[address] [place], [place] [address]Dr. Madelynlorri Leal Hemoglobin (Bld) [Mass/Vol] 13.3 g/dL Critically low 14.0-18.0 [facility] Comment on above: Performed By: #### C BC ####[facility] Fzboopklak6[address] [place], [place] [address]Dr. Farhat Leal IG # 0.08 10e3/ul Critically high 0.00-0.03 [facility] Comment on above: Performed By: #### C BC ####[facility] Rnitrilazd8218 [place] [id number]. Farhat Leal IG % 0.9 % Critically high 0.0-0.5 [facility] Comment on above: Performed By: #### C BC ####[facility] Ukarqwplvm7507 [place], [place] [address]Db. Farhat Leal LYMPH # 1.5 103/ul Normal 1.2-3.8 [facility] Comment on above: Performed By: #### C BC ####[facility] Ofjtunkvuv7679 [place] [id number]. Farhat Leal Lymphocytes/100 WBC (Bld) 17.2 % Critically low 20.5-60.0 [facility] Comment on above: Performed By: #### C BC ####[facility] Nkoxxfmiwa14[address] [place] [id number]. Farhat Leal MANUAL DIFF REQ NO Normal [facility] Comment on above: Performed By: #### C BC ####[facility] Wtvtkmhqmx6873 [place] [id number]. Farhat Leal MCH (RBC) [Entitic mass] 31.7 pg Normal 25.9-34.0 [facility] Comment on above: Performed By: #### C BC ####[facility] Oiggnfcqma9144 [place] [id number]. Farhat Leal MCHC (RBC) [Mass/Vol] 33.9 g/dL Normal 29.9-35.2 [facility] Comment on above: Performed By: #### C BC ####[facility] Nyfnbkmqpf7691 [place] [id number]. Farhat Leal MCV (RBC) [Entitic vol] 93.3 fL Normal 80.0-94.0 [facility] Comment on above: Performed By: #### C BC ####[facility] Smfcrauosv9593 [place] [id number]. Farhat Elvis MONO # 1.2 103/ul Critically high 0.3-0.8 [facility] Comment on above: Performed By: #### C BC ####[facility] Dealddpxdo9908 [place] [id number]. Farhat Leal Monocytes/100 WBC (Bld) 13.7 % Critically high 1.7-12.0 [facility] Comment on above: Performed By: #### C BC ####[facility] Oondonfhwf7419 [place] [id number]. Farhat Leal NEUT # 5.5 103/ul Normal 1.4-6.5 [facility] Comment on above: Performed By: #### C BC ####[facility] Aguzbialtq2138 [place] [id number]. Farhat Leal Neutrophils/100 WBC (Bld) 65.1 % Normal 43.0-75.0 [facility] Comment on above: Performed By: #### C BC ####[facility] Wbqxnizfok99[address] [place] [address]Dr. Farhat Leal Platelet mean volume (Bld) [Entitic vol] 9.6 fL Normal 9.5-13.5 [facility] Comment on above: Performed By: #### C BC ####[facility] Hkvwwptldb5493 [place] [address]Dr. Farhat Leal PLT 163 103/ul Normal 150-450 [facility] Comment on above: Performed By: #### C BC ####[facility] Zxzrlzfsrm4629 [place] [id number]. Farhat Leal RBC 4.20 106/ul Critically low 4.70-6.10 [facility] Comment on above: Performed By: #### C BC ####[facility] Rcrgbedbik3319 [place] [id number]. Farhat Leal WBC 8.4 103/ul Normal 4.0-11.0 [facility] Comment on above: Performed By: #### C BC ####[facility] Ebiywmhncl8984 [place] [id number]. Madelynlorri Elvis POINT OF CARE GLUCOSEon 08-0 Glucose [Mass/Vol] 300 mg/dL Critically high 74-106 [facility] Comment on above: Performed By: #### P OCGLUC ####[facility] Fcsxlabaun[address] [place], [place] [address]Dr. Farhat Leal POTASSIUMon 09-19-2021 Potassium [Moles/Vol] 4.9 mmol/L Normal 3.5-5.1 [facility] Comment on above: Performed By: #### K ####[facility] Pkwixxufus0818[address] [place], [place] [address]Dr. Farhat Leal PTT HEPARIN MONITORon 2021 aPTT Coag (Bld) [Time] 23.4 s Critically low 39.5-54.2 [facility] Comment on above: Result Comment: repe ated Performed By: #### P TTHEP ####[facility] Kdzrvcxeby4632[address] [place], [place] [address]Dr. Farhat Leal aPTT Coag (Bld) [Time] 101.2 s Critically high 39.5-54. 2 [facility] Comment on above: Performed By: #### P TTHEP ####[facility] Kloshzxnkl46[address] [place], [place] [address]Dr. Farhat Leal aPTT Coag (Bld) [Time] 81.0 s Critically high 39.5-54. 2 [facility] Comment on above: Result Comment: Test Repeated. Critical Value Verified Performed By: #### P TTHEP ####[facility] Zcpituqsna746[address] [place], [place] [address]Dr. Farhat Leal CBC AUTO DIFFon 09-18-2021 BASO # 0.0 103/ul Normal 0.0-0.1 [facility] Comment on above: Performed By: #### C BC ####[facility] Otqpepxzfg5232[address] [place], [place] [address]Dr. Farhat Leal Basophils/100 WBC (Bld) 0.4 % Normal 0.2-2.0 [facility] Comment on above: Performed By: #### C BC ####[facility] Clelmyzgxh8518[address] [place], [place] [address]Dr. Farhat Leal EO # 0.1 103/ul Normal 0.0-0.7 [facility] Comment on above: Performed By: #### C BC ####[facility] Pdiccshlan0250 [place] [id number]. Farhat Leal Eosinophils/100 WBC (Bld) 0.8 % Critically low 0.9-7.0 [facility] Comment on above: Performed By: #### C BC ####[facility] Mkcuoaxxuw5414 [place] [address]Dr. Farhat Leal Erythrocyte distribution width (RBC) [Ratio] 12.4 % Normal 11.0-15.0 [facility] Comment on above: Performed By: #### C BC ####[facility] Nnfksdenpr8129[address] [place], [place] [address]Dr. Farhat Leal Hematocrit (Bld) [Volume fraction] 41.7 % Critically low 42.0-54.0 [facility] Comment on above: Performed By: #### C BC ####[facility] Hcnbgsrzzb30[address] [place], [place] [address]Dr. Farhat Leal Hemoglobin (Bld) [Mass/Vol] 14.1 g/dL Normal 14.0-18.0 [facility] Comment on above: Performed By: #### C BC ####[facility] Unuvhyihpn189[address] [place], [place] [address]Dr. Farhat Leal IG # 0.06 10e3/ul Critically high 0.00-0.03 [facility] Comment on above: Performed By: #### C BC ####[facility] Kksdzrqtye3178 [place] [address]Dr. Farhat Leal IG % 0.6 % Critically high 0.0-0.5 [facility] Comment on above: Performed By: #### C BC ####[facility] Qxahvfmhna45[address] [place], [place] [address]Dr. Farhat Leal LYMPH # 0.6 103/ul Critically low 1.2-3.8 The [facility] Comment on above: Performed By: #### C BC ####[facility] [address] [place], [place] [address]Dr. Farhat Leal Lymphocytes/100 WBC (Bld) 6.5 % Critically low 20.5-60.0 [facility] Comment on above: Performed By: #### C BC ####[facility] Rakqbziwrl549[address] [place] [address]Dr. Farhat Leal MANUAL DIFF REQ NO Normal [facility] Comment on above: Performed By: #### C BC ####[facility] Bzdydcbdtp1102 [place] [phone]. Farhat Leal MCH (RBC) [Entitic mass] 31.6 pg Normal 25.9-34.0 [facility] Comment on above: Performed By: #### C BC ####[facility] Ghkietvozl1544 [place] [address]Dr. Farhat Leal MCHC (RBC) [Mass/Vol] 33.8 g/dL Normal 29.9-35.2 [facility] Comment on above: Performed By: #### C BC ####[facility] Tzvucddruy13[address] [place], [place] [address]Dr. Farhat Leal MCV (RBC) [Entitic vol] 93.5 fL Normal 80.0-94.0 [facility] Comment on above: Performed By: #### C BC ####[facility] Vcxnrokbae[address] [place], [place] [address]DrSkylar Leal MONO # 1.0 103/ul Critically high 0.3-0.8 [facility] Comment on above: Performed By: #### C BC ####[facility] Sapzhrtwdx[address] [place], [place] [address]Dr. Farhat Leal Monocytes/100 WBC (Bld) 10.4 % Normal 1.7-12.0 [facility] Comment on above: Performed By: #### C BC ####[facility] Tbfyevslqq4816[address] [place], [place] [address]DrSkylar Leal NEUT # 7.8 103/ul Critically high 1.4-6.5 [facility] Comment on above: Performed By: #### C BC ####[facility] [address]krjekeiw[address] [place], [place] [address]DrSkylar Leal Neutrophils/100 WBC (Bld) 81.3 % Critically high 43.0-75.0 [facility] Comment on above: Performed By: #### C BC ####[facility] Svzphhtlcw2064 [place] [address]Dr. Farhat Leal Platelet mean volume (Bld) [Entitic vol] 9.9 fL Normal 9.5-13.5 [facility] Comment on above: Performed By: #### C BC ####[facility] Njorriwxwl8124 [place] [address]Dr. Farhat Leal PLT 169 103/ul Normal 150-450 [facility] Comment on above: Performed By: #### C BC ####[facility] Goeoctrhpn9952 [place] [address]Dr. Farhat Leal RBC 4.46 106/ul Critically low 4.70-6.10 [facility] Comment on above: Performed By: #### C BC ####[facility] Ffmdpbdfji[address] [place], [place] [address]Dr. Farhat Leal WBC 9.6 103/ul Normal 4.0-11.0 [facility] Comment on above: Performed By: #### C BC ####[facility] Ydrcfyabqp6979[address] [place], [place] [address]Dr. Farhat Leal BASO # 0.0 103/ul Normal 0.0-0.1 [facility] Comment on above: Performed By: #### C BC ####[facility] Cpoikkbaan[address] [place], [place] [address]Dr. Farhat Leal Basophils/100 WBC (Bld) 0.4 % Normal 0.2-2.0 [facility] Comment on above: Performed By: #### C BC ####[facility] Fiivtoilfr9008 [place] [id number]. Farhat Leal EO # 0.1 103/ul Normal 0.0-0.7 [facility] Comment on above: Performed By: #### C BC ####[facility] Iottyciqqr[address] [place], [place] [address]Dr. Farhat Leal Eosinophils/100 WBC (Bld) 1.1 % Normal 0.9-7.0 [facility] Comment on above: Performed By: #### C BC ####[facility] Epvjvkwbvs6893 [place] [address]Dr. Farhat Leal Erythrocyte distribution width (RBC) [Ratio] 12.6 % Normal 11.0-15.0 [facility] Comment on above: Performed By: #### C BC ####[facility] Rdlelulmwo2819 [place] [address]Dr. Farhat Leal Hematocrit (Bld) [Volume fraction] 40.8 % Critically low 42.0-54.0 [facility] Comment on above: Performed By: #### C BC ####[facility] Tqxuqclgxi7872 [place] [address]Dr. Farhat Leal Hemoglobin (Bld) [Mass/Vol] 13.6 g/dL Critically low 14.0-18.0 [facility] Comment on above: Performed By: #### C BC ####[facility] Vjawtmryvl5618 [place] [address]Dr. Farhat Leal IG # 0.08 10e3/ul Critically high 0.00-0.03 [facility] Comment on above: Performed By: #### C BC ####[facility] Eesnwnxlpy[address] [place], [place] [address]Dr. Farhat Leal IG % 0.9 % Critically high 0.0-0.5 [facility] Comment on above: Performed By: #### C BC ####[facility] Goxlbigjqg8[address] [place], [place] [address]DrSkylar Farhat Leal LYMPH # 0.8 103/ul Critically low 1.2-3.8 [facility] Comment on above: Performed By: #### C BC ####[facility] Kdspyeccnb6367 [place] [address]DrSkylar Farhat Leal Lymphocytes/100 WBC (Bld) 8.7 % Critically low 20.5-60.0 [facility] Comment on above: Performed By: #### C BC ####[facility] Avwiggirlp0411 [place] [address]DrSkylar Farhat Elvis MANUAL DIFF REQ NO Normal [facility] Comment on above: Performed By: #### C BC ####[facility] Vangpoodms8814 [place] [id number] Leal MCH (RBC) [Entitic mass] 31.6 pg Normal 25.9-34.0 [facility] Comment on above: Performed By: #### C BC ####[facility] Unkimcomeq1197 [place] [address]Dr. Farhat Leal MCHC (RBC) [Mass/Vol] 33.3 g/dL Normal 29.9-35.2 [facility] Comment on above: Performed By: #### C BC ####[facility] Glwzsgmshh0912 [place] [address]DrSkylar Leal MCV (RBC) [Entitic vol] 94.9 fL Critically high 80.0-94.0 [facility] Comment on above: Performed By: #### C BC ####[facility] Eqbmbynhxx97[address] [place], [place] [address]DrSkylar Leal MONO # 1.0 103/ul Critically high 0.3-0.8 [facility] Comment on above: Performed By: #### C BC ####[facility] Fhehpwwxim98[address] [place], [place] [address]DrSkylar Leal Monocytes/100 WBC (Bld) 11.3 % Normal 1.7-12.0 [facility] Comment on above: Performed By: #### C BC ####[facility] Kulttideyl[address] [place], [place] [address]DrSkylar Leal NEUT # 6.9 103/ul Critically high 1.4-6.5 [facility] Comment on above: Performed By: #### C BC ####[facility] Jqdpukssug1408 [place] [address]DrSkylar Leal Neutrophils/100 WBC (Bld) 77.6 % Critically high 43.0-75.0 [facility] Comment on above: Performed By: #### C BC ####[facility] Bpxvuhcyct5129 [place] [address]DrSkylar Leal Platelet mean volume (Bld) [Entitic vol] 9.7 fL Normal 9.5-13.5 [facility] Comment on above: Performed By: #### C BC ####[facility] Bmqtwydsoi2422 [place], [place] [address]Ps. Farhat Leal PLT 171 103/ul Normal 150-450 [facility] Comment on above: Performed By: #### C BC ####[facility] Ybwkvxifvn5234 [place], [place] [address]Kb. Farhat Leal RBC 4.30 106/ul Critically low 4.70-6.10 [facility] Comment on above: Performed By: #### C BC ####[facility] Iqjdidhnvr6589 [place], [place] [address]Ez. Farhat Leal WBC 8.9 103/ul Normal 4.0-11.0 [facility] Comment on above: Performed By: #### C BC ####[facility] Ovkfhuzcof7991 [place], [place] [address]Qp. Farhat Leal Covid-19 PCR (CVDTB)on SARS-CoV-2 (COVID-19) RNA JOSH+probe Ql (Unsp spec) Not detected Normal NOT DETECTED [facility] Comment on above: Result Comment: When diagnostic [...] for this test is supported by the Break Up Worker of Health and Human Service's declaration that [...] Performed By: #### C VDTBH ####[facility] Pjkezxdgpc9812 [place] [address]Dr. Farhat Leal PROF 14(COMP METB)on 022 Albumin [Mass/Vol] 2.6 g/dL Critically low 3.4-5.0 [facility] Comment on above: Performed By: #### C MP ####[facility] Xjpkvdkkxe3407 [place] [address]Dr. Farhat Leal Albumin/Globulin [Mass ratio] 0.7 {ratio} Normal [facility] Comment on above: Performed By: #### C MP ####[facility] Fotxzxopsn4757 [place] [address]Dr. Farhat Leal ALP [Catalytic activity/Vol] 88 U/L Normal 46-116 [facility] Comment on above: Performed By: #### C MP ####[facility] Rsxqnsowed[address] [place], [place] [address]Dr. Farhat Leal ALT [Catalytic activity/Vol] 15 U/L Critically low 16-63 [facility] Comment on above: Performed By: #### C MP ####[facility] Zqnzalqgnr6[address] [place], [place] [address]Dr. Farhat Lael Anion gap [Moles/Vol] 11.7 mmol/L Normal [facility] Comment on above: Performed By: #### C MP ####[facility] Pzjfjflilh44[address] [place], [place] [address]Dr. Farhat Leal AST [Catalytic activity/Vol] 25 U/L Normal 15-37 [facility] Comment on above: Performed By: #### C MP ####[facility] Aclyzkxnyr035[address] [place], [place] [address]Dr. Farhat Leal Bilirubin [Mass/Vol] 0.6 mg/dL Normal 0.2-1.0 [facility] Comment on above: Performed By: #### C MP ####[facility] Klcicztehx[address] [place], [place] [address]Dr. Farhat Leal Calcium [Mass/Vol] 8.9 mg/dL Normal 8.5-10.1 [facility] Comment on above: Performed By: #### C MP ####[facility] Mdzcifvujv5781 [place] [id number]. Farhat Leal Chloride [Moles/Vol] 93 mmol/L Critically low 98-107 [facility] Comment on above: Performed By: #### C MP ####[facility] Eosnpxwwdi4912 [place] [id number]. Farhat Leal CO2 [Moles/Vol] 28.9 mmol/L Normal 21.0-32.0 The [facility] Comment on above: Performed By: #### C MP ####[facility] Ftbkiwzpmg3551 [place] [address]Dr. Farhat Leal Creatinine [Mass/Vol] 2.09 mg/dL Critically high 0.70-1.30 [facility] Comment on above: Performed By: #### C MP ####[facility] Fwbtrtwpav[address] [place], [place] [address]Dr. Farhat Leal EGFR-AF IRISH 38 mL/min/1.73m2 Critically low >=60 [facility] Comment on above: Performed By: #### C MP ####[facility] Ytmprtjnvt1274 [place] [address]Dr. Farhat Leal EGFR-NON AF IRISH 31 mL/min/1.73m2 Critically low >=60 [facility] Comment on above: Performed By: #### C MP ####[facility] Keaampjcat48[address] [place], [place] [address]Dr. Farhat Leal Globulin (S) [Mass/Vol] 3.7 g/dL Normal [facility] Comment on above: Performed By: #### C MP ####[facility] Mpmvlmvlem9129 [place] [address]Dr. Farhat Leal Glucose [Mass/Vol] 214 mg/dL Critically high 74-106 [facility] Comment on above: Performed By: #### C MP ####[facility] Aowhdysaym4433 [place] [address]Dr. Farhat Leal Potassium [Moles/Vol] 5.6 mmol/L Critically high 3.5-5.1 [facility] Comment on above: Performed By: #### C MP ####[facility] Nrnfetjjzo2914 [place] [id number]. Farhat Leal Protein [Mass/Vol] 6.3 g/dL Critically low 6.4-8.2 [facility] Comment on above: Performed By: #### C MP ####[facility] Tkmsmgwtfw0052 [place] [id number]. Farhat Leal Sodium [Moles/Vol] 128 mmol/L Critically low 136-145 Th [facility] Comment on above: Performed By: #### C MP ####[facility] [address]vnst[address] [place], [place] [address]Dr. Farhat Leal Urea nitrogen [Mass/Vol] 65.0 mg/dL Critically high 7.0-18.0 [facility] Comment on above: Performed By: #### C MP ####[facility] Nqvizymfym15[address] [place], [place] [address]Dr. Farhat Leal Urea nitrogen/Creatinine [Mass ratio] 31.1 mg/mg Normal [facility] Comment on above: Performed By: #### C MP ####[facility] Obnlwskgom1825[address] [place], [place] [address]Dr. Farhat Leal Albumin [Mass/Vol] 2.5 g/dL Critically low 3.4-5.0 [facility] Comment on above: Performed By: #### T MYRIAM, CMP ####[facility] Wqgyhdqejn[address] [place], [place] [address]Dr. Farhat Leal Albumin/Globulin [Mass ratio] 0.7 {ratio} Normal [facility] Comment on above: Performed By: #### T SH, CMP ####[facility] Gemzniuekp30[address] [place], [place] [address]Dr. Farhat Leal ALP [Catalytic activity/Vol] 83 U/L Normal 46-116 [facility] Comment on above: Performed By: #### T SH, CMP ####[facility] Nybltveatj99[address] [place], [place] [address]Dr. Farhat Leal ALT [Catalytic activity/Vol] 16 U/L Normal 16-63 [facility] Comment on above: Performed By: #### T SH, CMP ####[facility] Oihydzpany85[address] [place], [place] [address]Dr. Farhat Leal Anion gap [Moles/Vol] 9.7 mmol/L Normal [facility] Comment on above: Performed By: #### T SH, CMP ####[facility] Wxsdhjguur70[address] [place], [place] [address]Dr. Farhat Leal AST [Catalytic activity/Vol] 27 U/L Normal 15-37 [facility] Comment on above: Performed By: #### T SH, CMP ####[facility] Omybvocdph45[address] [place], [place] [address]Dr. Farhat Leal Bilirubin [Mass/Vol] 0.5 mg/dL Normal 0.2-1.0 [facility] Comment on above: Performed By: #### T MYRIAM, CMP ####[facility] Jgweracvbz5[address] [place], [place] [address]Dr. Farhat Leal Calcium [Mass/Vol] 8.8 mg/dL Normal 8.5-10.1 [facility] Comment on above: Performed By: #### T MYRIAM, CMP ####[facility] Baiyxouune[address] [place], [place] [address]Dr. Farhat Leal Chloride [Moles/Vol] 95 mmol/L Critically low 98-107 [facility] Comment on above: Performed By: #### T MYRIAM, CMP ####[facility] Hkxjxyvqtd06[address] [place], [place] [address]Dr. Farhat Leal CO2 [Moles/Vol] 30.5 mmol/L Normal 21.0-32.0 [facility] Comment on above: Performed By: #### T MYRIAM, CMP ####[facility] Gqghjsqdtv[address] [place], [place] [address]Dr. Farhat Leal Creatinine [Mass/Vol] 2.18 mg/dL Critically high 0.70-1.30 [facility] Comment on above: Performed By: #### T SH, CMP ####[facility] Nzkvxkkuuf34[address] [place], [place] [address]Dr. Farhat Leal EGFR-AF IRISH 36 mL/min/1.73m2 Critically low >=60 [facility] Comment on above: Performed By: #### T SH, CMP ####[facility] Oxlkzstcab87[address] [place] [address]Dr. Farhat Leal EGFR-NON AF IRISH 30 mL/min/1.73m2 Critically low >=60 [facility] Comment on above: Performed By: #### T SH, CMP ####[facility] [id number] [address]Dr. Farhat Leal Globulin (S) [Mass/Vol] 3.5 g/dL Normal [facility] Comment on above: Performed By: #### T SH, CMP ####[facility] [id number] [place], [place] [address]Dr. Farhat Leal Glucose [Mass/Vol] 141 mg/dL Critically high 74-106 T [facility] Comment on above: Performed By: #### T SH, CMP ####[facility] [id number] [place], [place] [address]Dr. Madelynlorri Leal Potassium [Moles/Vol] 5.2 mmol/L Critically high 3.5-5.1 [facility] Comment on above: Performed By: #### T SH, CMP ####[facility] [id number] [place], [place] [address]Dr. Farhat Leal Protein [Mass/Vol] 6.0 g/dL Critically low 6.4-8.2 Th [facility] Comment on above: Performed By: #### T SH, CMP ####[facility] [id number] [place], [place] [address]Dr. Farhat Leal Sodium [Moles/Vol] 130 mmol/L Critically low 136-145 Th [facility] Comment on above: Performed By: #### T SH, CMP ####[facility] [id number] [place], [place] [address]Dr. Farhat Leal Urea nitrogen [Mass/Vol] 63.0 mg/dL Critically high 7.0-18.0 [facility] Comment on above: Performed By: #### T SH, CMP ####[facility] [id number] [place], [place] [address]Dr. Farhat Leal Urea nitrogen/Creatinine [Mass ratio] 28.9 mg/mg Normal [facility] Comment on above: Performed By: #### T SH, CMP ####[facility] [id number] [address]Dr. Farhat Leal PROTIMEon 09-18-2021 INR Coag (PPP) [Relative time] 1.06 {INR} Normal [facility] Comment on above: Performed By: #### P T, PTT ####[facility] [id number] [address]Dr. Farhat Leal INR GUIDELINES SEE BELOW Normal [facility] Comment on above: Result Comment: MALINA RED INR: 2.0 - 3.0 CONDITIONS NOT LISTED BELOW 2.5 - 3.5 FOR PROSTHETIC HEART VALVE REPLACEMENT 2.5 - 3.5 RECURRENT THROMBOSIS Performed By: #### P T, PTT ####[facility] [id number] [place], [place] [address]Dr. Farhat Leal PT Coag (PPP) [Time] 11.4 s Normal 9.0-11.6 [facility] Comment on above: Performed By: #### P T, PTT ####[facility] [id number] [address]Dr. Farhat Leal PTTon 09-18-2021 aPTT Coag (Bld) [Time] 27.9 s Normal 22.3-36.2 [facility] Comment on above: Performed By: #### P T, PTT ####[facility] [id number] [place], [place] [address]Dr. Farhat Leal TSHon 09-18-2021 TSH 7.099 uIU/mL Critically high 0.358-3.740 [facility] Comment on above: Performed By: #### T SH, CMP ####[facility] [id number] [place], [place] [address]DrSkylar Leal US SALOME DOP LEG RTon 09-19-19 22 US SALOME DOP LEG RT Normal [facility] XR CHEST 1 Von 09-18-2021 XR CHEST 1 V Normal [facility] XR HIP RT 2 3V W PELVISon XR HIP RT 2 3V W PELVIS Normal [facility] Vital Signs Date Time Vital Sign Value Performing Clinician Facility 03-30-2024 11:25-0500 Body temperature 97.7 [degF] Ni Petznick DO Work Phone: [facility] 03-30-2024 11:25-0500 Diastolic blood pressure 62 mm[Hg] Ni Petznick DO Work Phone: [facility] 03-30-2024 11:25-0500 Heart rate 85 /min Ni Petznick DO Work Phone: [facility] 03-30-2024 11:25-0500 SaO2% (BldA) [Mass fraction] 99 % Ni Petznick DO Work Phone: [facility] 03-30-2024 11:25-0500 Systolic blood pressure 110 mm[Hg] Ni Petznick DO Work Phone: [facility] 12-23-2023 13:13-0500 Body temperature 98.01 [degF] Ni Petznick DO Work Phone: [facility] 12-23-2023 13:13-0500 Diastolic blood pressure 66 mm[Hg] Ni Petznick DO Work Phone: [facility] 12-23-2023 13:13-0500 Heart rate 68 /min Ni Petznick DO Work Phone: [facility] 12-23-2023 13:13-0500 SaO2% (BldA) [Mass fraction] 99 % Ni Petznick DO Work Phone: [facility] 12-23-2023 13:13-0500 Systolic blood pressure 122 mm[Hg] Ni Petznick DO Work Phone: [facility] 03-18-2023 13:37-0500 Body temperature 98.01 [degF] Ni Petznick DO Work Phone: [facility] 03-18-2023 13:37-0500 Diastolic blood pressure 64 mm[Hg] Ni Petznick DO Work Phone: [facility] 03-18-2023 13:37-0500 Heart rate 72 /min Ni Petznick DO Work Phone: [facility] 03-18-2023 13:37-0500 SaO2% (BldA) [Mass fraction] 98 % Ni Petznick DO Work Phone: [facility] 03-18-2023 13:37-0500 Systolic blood pressure 118 mm[Hg] Ni Petznick DO Work Phone: [facility] 07-20-2022 13:35-0400 Body temperature 97.4 [degF] DO Devon Ball Work Phone: [facility] 07-20-2022 13:35-0400 Diastolic blood pressure 50 mm[Hg] DO Devon Ball Work Phone: [facility] 07-20-2022 13:35-0400 Heart rate 67 /min DO Devon Ball Work Phone: [facility] 07-20-2022 13:35-0400 Respiratory rate 20 /min DO Devon Ball Work Phone: [facility] 07-20-2022 13:35-0400 Systolic blood pressure 98 mm[Hg] DO Devon Ball Work Phone: [facility] 06-29-2022 14:46-0400 Body height 193.04 cm DO Devon Ball Work Phone: [facility] 02-26-2022 13:11-0500 Body temperature 96.6 [degF] Hina Peterson MD Work Phone: [facility] 02-26-2022 13:11-0500 Diastolic blood pressure 75 mm[Hg] Hina Peterson MD Work Phone: [facility] 02-26-2022 13:11-0500 Heart rate 75 /min Hina Peterson MD Work Phone: [facility] 02-26-2022 13:11-0500 Systolic blood pressure 88 mm[Hg] Hina Peterson MD Work Phone: [facility] 02-05-2022 08:29-0500 Body temperature 96.69 [degF] [facility] Work Phone: [facility] 02-05-2022 08:29-0500 Diastolic blood pressure 42 mm[Hg] [facility] Work Phone: [facility] 02-05-2022 08:29-0500 Heart rate 79 /min [facility] Work Phone: [facility] 02-05-2022 08:29-0500 SaO2% (BldA) [Mass fraction] 100 % [facility] Work Phone: [facility] 02-05-2022 08:29-0500 Systolic blood pressure 72 mm[Hg] [facility] Work Phone: [facility] 01-12-2022 11:00-0500 Diastolic blood pressure 54 mm[Hg] Alissa Major PRINCIPAL SYSTEMS ARCHITECT.CUPOLA TAPPER HELPER Work Phone: [facility] 01-12-2022 11:00-0500 Heart rate 88 /min Alissa Major PRINCIPAL SYSTEMS ARCHITECT.CUPOLA TAPPER HELPER Work Phone: [facility] 01-12-2022 11:00-0500 SaO2% (BldA) [Mass fraction] 93 % Alissa Major PRINCIPAL SYSTEMS ARCHITECT.CUPOLA TAPPER HELPER Work Phone: [facility] 01-12-2022 11:00-0500 Systolic blood pressure 96 mm[Hg] Alissa Major PRINCIPAL SYSTEMS ARCHITECT.CUPOLA TAPPER HELPER Work Phone: [facility] 01-12-2022 10:12-0500 Body temperature 97.9 [degF] Alissa Major PRINCIPAL SYSTEMS ARCHITECT.CUPOLA TAPPER HELPER Work Phone: [facility] 01-12-2022 10:12-0500 Respiratory rate 18 /min Alissa Major PRINCIPAL SYSTEMS ARCHITECT.CUPOLA TAPPER HELPER Work Phone: [facility] 11-17-2021 15:59-0400 Body height 193 cm No Reeder DO Work Phone: [facility] 11-17-2021 15:59-0400 Body weight 111.58 kg No Reeder DO Work Phone: [facility] 11-17-2021 15:59-0400 Diastolic blood pressure 59 mm[Hg] No Reeder DO Work Phone: [facility] 11-17-2021 15:59-0400 Heart rate 86 /min No Reeder DO Work Phone: [facility] 11-17-2021 15:59-0400 SaO2% (BldA) [Mass fraction] 97 % No Reeder DO Work Phone: [facility] 11-17-2021 15:59-0400 Systolic blood pressure 104 mm[Hg] No Reeder DO Work Phone: [facility] Encounters Encounter Date Encounter Type Care Provider Facility Start: 04-11-2024 End: 04-11-2024 ambulatory [facility] Start: 03-31-2024 End: 03-31-2024 Telephone encounter Asia Pike MD Work Phone: Kidney Medicine [facility] Start: 03-30-2024 End: 03-30-2024 Office outpatient visit 25 minutes Ni Cabrera DO Work Phone: [facility] 230 Comment on above: 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 ([facility]/HCC) (Primary Dx); 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 ([facility]/HCC); Type 1 diabetes mellitus with hypoglycemia and without coma ([facility]); 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 ([facility]/HCC); Type 1 diabetes mellitus with nephropathy ([facility]/HCC) Start: 03-30-2024 End: 03-30-2024 ambulatory NI CABRERA Not Available Start: 12-23-2023 End: 12-23-2023 Office outpatient visit 25 minutes Ni Cabrera DO Work Phone: [facility] [phone] Comment on above: Type 1 diabetes andrea itus with hypertension and end stage renal disease on dialysis (CMS/HCC) (Primary Dx); 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); 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 (CMS/HCC); Below-knee amputation of both lower extremities, sequela (CMS/HCC); 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) Start: 12-23-2023 End: 12-23-2023 ambulatory NI CABRERA Not Available Start: 11-17-2023 End: 11-18-2023 Refill Asia Pike MD Work Phone: Kidney [facility] Comment on above: Refill Request Start: 10-06-2023 End: 10-06-2023 Telephone encounter Van Olivarez APRN.CNP Work Phone: [facility] Start: 09-17-2023 End: 09-17-2023 ambulatory NI CABRERA Not Available Start: 09-02-2023 End: 09-02-2023 ambulatory [facility] Start: 06-17-2023 End: 06-17-2023 ambulatory NI CABRERA Not Available Start: 05-19-2023 End: 05-19-2023 ambulatory CA[facility] Start: 04-11-2023 End: 04-11-2023 ambulatory Devon Moreira Other [employer] Other Start: 04-11-2023 Telephone encounter Devon NUNEZ [facility] Start: 03-18-2023 End: 03-18-2023 Office outpatient visit 25 minutes Ni Cabrera DO Work Phone: [facility] 230 Comment on above: 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 ([facility]/HCC) (Primary Dx); 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 ([facility]/HCC); 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); Type 1 diabetes mellitus with hypoglycemia and without coma (CMS/HCC); 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 ([facility]/HCC) Start: 02-17-2023 End: 02-17-2023 ambulatory Devon Moreira Other [employer] Other Start: 02-17-2023 Telephone encounter Devon Moreira [facility] Start: 01-14-2023 End: 01-14-2023 ambulatory Devon Moreira Other [employer] Other Start: 01-14-2023 Sbsq nursing facil c are/day minor complj 15 min [facility] Start: 12-10-2022 End: 12-10-2022 ambulatory Devon Moreira Other [employer] Other Start: 12-10-2022 Sbsq nursing facil c are/day minor complj 15 min [facility] Start: 11-12-2022 End: 11-12-2022 ambulatory Devon Moreira Other [employer] Other Start: 11-12-2022 Sbsq nursing facil c are/day minor complj 15 min [facility] Start: 10-16-2022 Refill Asia Pike MD Work Phone: [facility] Comment on above: Med Change Request Start: 10-12-2022 End: 10-12-2022 ambulatory Devon Moreira Other [employer] Other Start: 10-12-2022 Telephone encounter Devon Moreira [facility] Start: 10-08-2022 End: 10-08-2022 ambulatory Devon Moreira Other [employer] Other Start: 10-08-2022 Sbsq nursing facil c are/day new problem 25 min [facility] Start: 09-22-2022 Refill [facility] Comment on above: Rx Refills Start: 09-10-2022 End: 09-10-2022 ambulatory Devon Moreira Other [employer] Other Start: 09-10-2022 Sbsq nursing facil c are/day new problem 25 min [facility] Start: 08-06-2022 End: 08-06-2022 ambulatory Devon Moreira Other [employer] Other Start: 08-06-2022 Sbsq nursing facil c are/day new problem 25 min Devon Moreira [facility] Start: 07-22-2022 End: 07-22-2022 ambulatory Devon Moreira Other [employer] Other Start: 07-22-2022 Telephone encounter Devon Moreira [facility] Start: 07-20-2022 End: 07-20-2022 ambulatory Sadia Aguilar Facility:[facility] Start: 07-20-2022 End: 07-20-2022 ambulatory DO Devon Moreira Work Phone: [facility] Work Phone: Start: 07-20-2022 End: 07-20-2022 Discharged Recurring DO Devon Rico Work Phone: [facility] [place] Work Phone: Start: 07-13-2022 End: 07-13-[address] DEVON MOREIRA Facility:H1 Start: 07-10-2022 End: 07-10-[address] DEVON MOREIRA Facility:[facility]1 Start: 07-03-2022 End: 07-03-[address] DEVON MOREIRA Facility:[facility]1 Start: 06-26-2022 End: 06-26-[address] DEVON MOREIRA Facility:[facility]1 Start: 06-26-2022 End: 06-26-[address] DEVON MOREIRA Facility:[facility]1 Start: 06-25-2022 End: 06-25-2022 ambulatory Devon Moreira Other [place] [employer] Other Start: 06-25-2022 Sbsq nursing facil c are/day minor complj 15 min Devon Moreira [facility] Start: 06-19-2022 End: 06-19-[address] DEVON MOREIRA Facility:H1 Start: 06-15-2022 End: 07-15-2022 ambulatory SHAIKH Kate MURRAY Facility:H1 Start: 06-12-2022 End: 06-12-[address] DOCTOR WALSH Facility:H1 Start: 06-05-2022 Sbsq nursing facil c are/day new problem 25 min Devon Ball [facility] Start: 06-05-2022 End: 06-05-[address] DEVON MOREIRA [facility] [employer] Other Start: 05-29-2022 End: 05-29-[address] DEVON MOREIRA Facility:H1 Start: 05-22-2022 End: 05-22-[address] DEVON MOREIRA Facility:[facility]1 Start: 05-20-2022 End: 05-20-[address] DEVON MOREIRA Facility:H1 Start: 05-18-2022 End: 06-12-2022 ambulatory SHAIKH Kate MURRAY Facility:[facility]1 Start: 05-15-2022 End: 05-15-[address] DEVON MOREIRA Facility:[facility]1 Start: 05-13-2022 End: 05-13-2022 ambulatory Van Olivarez APRN.CUPOLA TAPPER HELPER Work Phone: Kidney Medicine [facility] Comment on above: results Start: 05-13-2022 E-mail encounter fro m caregiver Van Olivarez APRN.CUPOLA TAPPER HELPER Work Phone: [facility] Start: 05-08-2022 End: 05-08-[address] DEVON MOREIRA Facility:[facility]1 Start: 05-07-2022 End: 05-07-2022 ambulatory Devon Moreira Other [place] [employer] Other Start: 05-07-2022 Sbsq nursing facil c are/day new problem 25 min Devon Moreira [facility] Start: 05-06-2022 End: 05-06-2022 [...] Van cortes APRN.CNP Work Phone: Kidney [facility] Start: 04-01-2022 End: 04-01-[address] DEVON MOREIRA Facility:H1 Start: 03-22-2022 Refill Asia Pike MD Work Phone: [facility] Comment on above: Med Change Request Start: 03-21-2022 ambulatory SHAIKH Kate MURRAY Facilit y:H1 Start: 03-11-2022 End: 03-11-[address] DEVON MOREIRA Facility:H1 Start: 02-27-2022 Refill Samira Serna [facility] Comment on above: Rx Refills Start: 02-26-2022 End: 02-26-2022 Patient encounter procedure [...] DR DEVON MOREIRA Facility:H1 Start: 02-05-2022 End: 02-05-2022 Patient encounter procedure [facility] Work Phone: [facility] Comment on above: Kidney replaced by t ransplant (Primary Dx); 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; 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 Start: 01-26-2022 End: 01-26-[address] DEVON MOREIRA Facility:[facility]1 Start: 01-20-2022 Telephone encounter Van Olivarez APRN.CUPOLA TAPPER HELPER Work Phone: Kidney Medicine [facility] Comment on above: Results Start: 01-19-2022 End: 01-19-[address] DEVON MOREIRA Facility:H1 Start: 01-16-2022 ambulatory SHAIKH Kate MURRAY Facilit y:H1 Start: 01-12-2022 End: 01-12-2022 Subsequent hospital visit by physician Alissa Chavira APRN.CUPOLA TAPPER HELPER Work Phone: Angio Comment on above: ILIANA (acute kidney in jury) (HCC) [N17.9] Start: 12-30-2021 End: 12-30-2021 ambulatory Paresh Fonseca MD Work Phone: Infectious Disease Comment on above: MRSA bacteremia (Arabella munira Dx); Diabetic foot ulcer with osteomyelitis (HCC) Start: 12-30-2021 End: 12-30-2021 Telemedicine consultation with patient aPresh Fonseca MD Work Phone: [facility] Start: 12-29-2021 End: 12-29-[address] DEVON MOREIRA Facility:H1 Start: 12-25-2021 End: 12-26-[address] DEVON MOREIRA Facility:H1 Start: 12-20-2021 End: 12-20-[address] DEVON MOREIRA Facility:H1 Start: 12-16-2021 End: 01-14-2022 ambulatory SHAIKH Kate MURARY Facility:H1 Start: 12-16-2021 Telephone encounter Hina shepard [...] Start: 12-08-2021 Orders Only Artur Burger charles PRINCIPAL SYSTEMS ARCHITECT.CUPOLA TAPPER HELPER Work Phone: [facility] Comment on above: Kidney replaced by t ransplant (Primary Dx) Start: 12-07-2021 ambulatory Paresh Fonseca MD Work Phone: [facility] Comment on above: CoPat Start (copat s top 12/27/21) Start: 12-05-2021 Telephone encounter Paresh Fonseca MD Work Phone: Infectious Disease Comment on above: Patient Update (evus held discussion/) Start: 12-01-2021 Follow-up encounter [facility] Provider [facility] Start: 12-01-2021 Patient encounter procedure [facility] Prov ider [facility] Start: 11-23-2021 End: 11-28-2021 Evaluation and management of inpatient SHAIKH Kate THOMPSONLIZZY Facility:H1 Start: 11-18-2021 End: 12-16-2021 ambulatory SHAIKH Kate MURRAY Facility:[facility]1 Start: 11-17-2021 End: 11-17-2021 Patient encounter procedure No Reeder DO Work Phone: Vascular Medicine Comment on above: Acute deep vein thro mbosis (DVT) of proximal end of right lower extremity (HCC) (Primary Dx); PAD (peripheral artery disease) (HCC); Nonhealing ulcer of heel (HCC); Anticoagulation management encounter Start: 11-14-2021 End: 11-15-2021 ambulatory ASHLEY Cortes [facility] Facility:H1 Start: 10-24-2021 End: 11-15-2021 ambulatory SHAIKH Kate MURRAY Facility:H1 Start: 10-22-2021 End: 10-23-2021 ambulatory ASHLEY Cortes [facility] Facility:H1 Start: 10-06-2021 ambulatory Van cortes PRINCIPAL SYSTEMS ARCHITECT.CUPOLA TAPPER HELPER Work Phone: Kidney Medicine [facility] Start: 09-30-2021 Refill Asia Pike MD Work Phone: [facility] Comment on above: Refill Request Start: 09-19-2021 End: 09-24-2021 Evaluation and management of inpatient DR PROSPER LEES Facility:H1 Start: 09-18-2021 End: 09-19-[address] DEVON MOREIRA Facility:H1 Start: 07-11-2021 Refill Asia Pike MD Work Phone: [facility] Comment on above: Refill Request Start: 06-05-2021 Telephone encounter Van lOivarez PRINCIPAL SYSTEMS ARCHITECT.CUPOLA TAPPER HELPER Work Phone: [facility] Comment on above: Results Start: 02-05-2021 End: 02-13-2021 ambulatory UNKNOWN PROVIDER Facility:[facility] Procedures Date Procedure Procedure Detail Performing Clinician Start: 03-30-2024 Hemoglobin glycosyla rk a1c Ni Suresh Petznick DO Work Phone: Start: 12-23-2023 Hemoglobin glycosyla rk a1c Ni M Petznick DO Work Phone: Start: 05-19-2023 Follow-up visit Follow-up CAITY IBRAHIM Start: 03-18-2023 Hemoglobin glycosyla rk a1c Ni Suresh Petznick DO Work Phone: Start: 02-05-2022 Creatinine other source Asia Pike MD Work Phone: Start: 02-05-2022 Urnls dip stick/tabl et rgnt auto w/o microscopy Asia Pike MD Work Phone: Start: 01-12-2022 Prothrombin time Alissa Chavira APRN.CUPOLA TAPPER HELPER Work Phone: Start: 12-01-2021 PACEMAKER CLINIC CHECK [facility] Provider Start: 11-29-2021 Microscopic examinat ion of blood, culture DR PROSPER LEES Comment on above: Performed By: #### B [id number] ####[facility] [id number] [place], [place] [address]ErDr. Farhat Leal Start: 11-27-2021 Insertion of Infusio [...] renal transplant KIDNEY TRANSPLANT STATUS Van Krusejaylan PRINCIPAL SYSTEMS ARCHITECT.CUPOLA TAPPER HELPER Work Phone: History of renal transplant Kidney replaced by transplant Artur Castaneda PRINCIPAL SYSTEMS ARCHITECT.CUPOLA TAPPER HELPER Work Phone: History of renal transplant Kidney [...] Treatment Date Care Activity Detail Author Start: 07-13-2024 End: 07-13-2024 Patient encounter procedure 07/13/2024 10:30 AM EDT Office Visit [facility] [address] [place] [address] Ni aCbrera, DO [address] [place] [address] [facility] [address] Start: 06-27-2024 Hemoglobin A1c measurement Diabetes: Hemoglobin A1C [facility] Start: 03-30-2024 End: 03-30-2024 Patient encounter procedure 03/30/2024 11:15 AM EST Office Visit [facility] [address] [place] [address] Petznick, Ni M, DO [address] [place] [address] [facility] 230 Start: 03-24-2024 Hemoglobin A1c measurement [facility] Start: 02-16-2024 Advance Directive Discussion Advance Directive Discussion [facility] Start: 12-18-2023 Hemoglobin A1c measurement HbA1C [facility] Start: 2023 Covid-19 Vaccine () Covid-19 Vaccine () [facility] Start: 2023 Influenza vaccination Influenza Vacc ine (#1) [facility] Start: 06-17-2023 End: 06-17-2023 Patient encounter procedure 06/17/2023 2:15 PM EDT [facility] [address] [place] [address] Hilda Ni Suresh, DO [address] [place] [address] [facility] 230 Start: 06-16-2023 Hemoglobin A1c measurement Diabetes: Hemoglobin A1C [facility] Start: 02-26-2023 BP CONTROLLED (<130/80) BP CONTROLLE D (<130/80) [facility] Start: 02-15-2023 Advance Directive Discussion Advance Directive Discussion [facility] Start: 02-05-2023 BP CONTROLLED (<130/80) BP CONTROLLE D (<130/80) [facility] Start: 01-12-2023 BP CONTROLLED (<130/80) BP CONTROLLE D (<130/80) [facility] Start: 12-29-2022 Urine screening for protein Diabetes: Urine Protein Screening [facility] Start: 11-17-2022 BP CONTROLLED (<130/80) BP CONTROLLE D (<130/80) [facility] Start: 10-16-2022 Covid-19 Vaccine () Covid-19 Vaccine () [facility] Start: 10-16-2022 Influenza vaccination C [facility] Start: 05-15-2022 Medicare Annual Wellness (AWV) Medicare Annual Wellness (AWV) [facility] Start: 04-08-2022 BP CONTROLLED (<130/80) BP CONTROLLE D (<130/80) [facility] Start: 02-15-2022 ADVANCE DIRECTIVE DISCUSSION ADVANCE DIRECTIVE DISCUSSION [facility] Start: 02-15-2022 [facility] Start: 02-05-2022 COVID-19 VACCINE (5 - Yung risk series) COVID-19 VACCINE (5 - Yung risk series) [facility] Start: 11-27-2021 COVID-19 VACCINE (4 - Booster for Yung series) COVID-19 VACCINE (4 - Booster for Yung series) [facility] Start: 11-04-2021 Hemoglobin A1c/Hemoglobin.total in Blood HBA1C [facility] Start: 10-16-2021 Influenza vaccination C [facility] Start: 03-26-2021 COVID-19 VACCINE (3 - Yung risk 3-dose series) COVID-19 VACCINE (3 - Yung risk 3-dose series) [facility] Start: 03-26-2021 COVID-19 VACCINE (3 - Yung risk series) COVID-19 VACCINE (3 - Yung risk series) [facility] Start: 02-15-2021 ADVANCE DIRECTIVE DISCUSSION ADVANCE DIRECTIVE DISCUSSION [facility] Start: 02-15-2021 [facility]ION [facility]MENT [facility] Start: 10-18-2019 RSV Vaccine (1 - 1-d ose 75+ series) RSV Vaccine (1 - 1-dose 75+ series) [facility] Start: 01-05-2016 Hepatitis B screening URINE AL BUMIN:CREATININE RATIO [facility] Start: 07-31-2015 Pneumococcal Vaccine : 50+ (2 of 2 - PCV) Pneumococcal Vaccine: 50+ (2 of 2 - PCV) [facility] Start: 07-31-2015 Pneumococcal Vaccine : 65+ (2 of 2 - PCV) Pneumococcal Vaccine: 65+ (2 of 2 - PCV) [facility] Start: 07-31-2015 Pneumococcal Vaccine : 65+ Years (2 of 2 - PCV) Pneumococcal Vaccine: 65+ Years (2 of 2 - PCV) [facility] Start: 07-31-2015 Pneumococcal Vaccine : 65+ Years (3 - PCV) Pneumococcal Vaccine: 65+ Years (3 - PCV) [facility] Start: 04-06-2015 Hemoglobin A1c/Hemoglobin.total in Blood HBA1C [facility] Start: 11-22-2010 Hepatitis B surface antibody level LDL CHOLESTEROL [facility] Start: 2009 ADULT PREVNAR-13 ADULT PREVNAR-13 Cl [facility] Start: 2009 PNEUMOVAX AGE 65 AND OVER WITH 5YR LOOKBACK (#1) PNEUMOVAX AGE 65 AND OVER WITH 5YR LOOKBACK (#1) [facility] Start: 2004 RSV Vaccine (1 - 1-d ose 60+ series) RSV Vaccine (1 - 1-dose 60+ series) [facility] Start: 1994 SHINGRIX VACCINE (1 of 2) SHINGRIX VACCINE (1 of 2) [facility] Start: 10-18-1963 HEPATITIS A (1 of 2 - Risk 2-dose series) HEPATITIS A (1 of 2 - Risk 2-dose series) [facility] Start: 10-18-1963 Hepatitis A Vaccine (1 of 2 - Risk 2-dose series) Hepatitis A Vaccine (1 of 2 - Risk 2-dose series) [facility] Start: 10-18-1963 SHINGRIX VACCINE (1 of 2) SHINGRIX VACCINE (1 of 2) [facility] Start: 10-18-1963 Urine microalbumin profile [facility] Start: 10-18-1963 Urine screening for protein Diabetes: Urine Protein Screening [facility] Start: 1962 ANNUAL PCP TEAM PRINTED [employer]AR[employer] MATTHEW DISEASE VISIT ANNUAL PCP TEAM CHRONIC DISEASE VISIT [facility] Start: 1962 Anxiety Screening Anxiety Screening [facility] Start: 1962 BP Controlled (<130/80) BP Controlle d (<130/80) [facility] Start: 1962 Depression Screening Depression Scre ening [facility] Start: 1956 Adult depression screening assessment DEPRESSION SCREENING [facility] Start: 1954 3 comp foot exam completed DIABETIC FOOT EXAM [facility] Start: 1954 Diabetic foot examination Diabetic Foot Exam [facility] Start: 1954 Glaucoma screening [facility] Start: 1954 Hepatitis B screening Urine Al bumin:Creatinine Ratio [facility] Start: 1954 Hepatitis C antibody , confirmatory test DILATED RETINAL EXAM [facility] Start: 1950 Pneumococcal Vaccine : 65+ (1 - PCV) Pneumococcal Vaccine: 65+ (1 - PCV) [facility] Start: 1950 PNEUMOCOCCAL: 65+ (1 - PCV) PNEUMOCOCCAL: 65+ (1 - PCV) [facility] Start: 1945 HEPATITIS A (1 of 2 - Risk 2-dose series) HEPATITIS A (1 of 2 - Risk 2-dose series) [facility] URINALYSIS, REFLEX MICROSCOPIC URINALYSIS, REFLEX MICROSCOPIC Lab Routine Screening for genitourinary condition Ordered: 10/06/2021 [facility] Work Phone: Comment on above: Ordered: 10/06/2021 URINALYSIS, REFLEX MICROSCOPIC URINALYSIS, REFLEX MICROSCOPIC Lab Routine Screening for genitourinary condition Ordered: 04/02/2022 [facility] Work Phone: Comment on above: Ordered: 04/02/2022 End: 11-17-2022 US LEG ARTERIAL PERIPH UNL VAS LAB US LEG ARTERIAL PERIPH UNL VAS LAB Vascular Lab Routine PAD (peripheral artery disease) (HCC) Nonhealing ulcer of heel (HCC) 1 Occurrences starting 11/17/2021 until 11/17/2022 [facility] Work Phone: Comment on above: 1 Occurrences starti ng 11/17/2021 until 11/17/2022 End: 11-17-2022 US LEG VEIN DVT UNL VAS LAB US LEG VEIN DVT UNL VAS LAB Vascular Lab Routine Acute deep vein thrombosis (DVT) of proximal end of right lower extremity (HCC) 1 Occurrences starting 11/17/2021 until 11/17/2022 [facility] Work Phone: Comment on above: 1 Occurrences starti ng 11/17/2021 until 11/17/2022 [facility] ADNIEL BROTHERS CT & VAS BROTHERS CT & VAS [facility] Immunizations Immunization Date Immunization Notes Care Provider Adam gonzalez 12-11-2021 COVID-19 booster vaccine, age 12+ yr, bivalent (PFIZER-BIONTECH) Paresh Fonseca MD Work Phone: [facility] 12-11-2021 influenza, high-dose , quadrivalent vaccine (FLUZONE HIGH DOSE QUADRIVALENT) Paresh Fonseca MD Work Phone: [facility] 12-11-2021 influenza virus vaccine, unspecified formulation [place] [facility] 10-24-2021 influenza, high dose seasonal, preservative-free Ni Petznick DO Work Phone: [facility] 01-19-2019 influenza, high dose seasonal, preservative-free Ni Petznick DO Work Phone: [facility] 11-25-2017 Seasonal trivalent influenza vaccine, adjuvanted, preservative free Ni Petznick DO Work Phone: [facility] 11-05-2016 influenza, high dose seasonal, preservative-free Ni Petznick DO Work Phone: [facility] 07-30-2014 pneumococcal polysaccharide vaccine, 23 valent Ni Petznick DO Work Phone: [facility] 03-09-2011 influenza virus vaccine, unspecified formulation [place] [employer] Work Phone: [facility] 12-17-2007 influenza virus vaccine, unspecified formulation [place] [employer]CH[employer] Work Phone: [facility] Work Phone: 02-11-2006 influenza virus vaccine, unspecified formulation [place] [employer]CH[employer] Work Phone: [facility] Work Phone: 12-07-2003 influenza virus vaccine, unspecified formulation [place] [employer] ARCHITECT[employer] Work Phone: [facility] Work Phone: 12-07-2003 pneumococcal polysaccharide vaccine, 23 valent [place] [employer] Work Phone: [facility] Work Phone: NEGATED: Highlighted row has not occurred!12-10-2021 COVID-19 booster vaccine, age 12+ yr, bivalent (PFIZER-BIONTAnaphore) Paresh Fonseca MD Work Phone: [facility] Comment on above: Deferred: Patient Re fused NEGATED: Highlighted row has not occurred!12-10-2021 influenza, high-dose, quadrivalent vaccine (FLUZONE HIGH DOSE QUADRIVALENT) Paresh Fonseca MD Work Phone: [facility] Comment on above: Deferred: Patient Re fused Payers Date Payer Category Payer Medicare MEDICARE MEDICAR E A AND B [id number] 2009-Present [phone] [place] [address] Medicare [id number] 2009 Medicare [id number] [id number]. [id number] 2009 Private Health Insurance [id number] .[id number]. [id number] 2009 Unknown [employer] [place] [employer] [place] [employer] SUPPLE[place] [id number] 2009-Present [phone] [address] [place] [address] Indemnity [id number] 1.2.840.462269.1.13.159. 2.7.3.905555.315 2009 Unknown 1.2.840.972128. 1.13.159. 2.7.3.119703.315 2009 Unknown [id number] 2.16.840.1.505796.19 2009 Unknown [id number] 1959 Medicare [id number] 1959 Self-pay 1944 Unknown [id number] 2.16.840.1.753345.3.579. 2.732 1944 Unknown [id number] 2.16.840.1.117700.3.579. 2.593 1944 Unknown [id number] 2.16.840.1.479797.3.579. 2.593 1944 Unknown [id number] 2.16.840.1.545793.3.579. 2.593 1944 Unknown [id number] 2.16.840.1.066035.3.579. 2.593 1944 Unknown [id number] 2.16.840.1.798296.3.579. 2.593 1944 Unknown [id number] 2.16.840.1.026102.3.579. 2.593 1944 Unknown [id number] 2.16.840.1.650551.3.579. 2.593 1944 Unknown [id number] 2.16.840.1.340848.3.579. 2.593 1944 Unknown [id number] 2.16.840.1.346795.3.579. 2.593 1944 Unknown [id number] 2.16.840.1.399174.3.579. 2.593 1944 Unknown [id number] 2.16.840.1.244792.3.579. 2.593 1944 Unknown [id number] 2.16.840.1.539033.3.579. 2.593 1944 Unknown [id number] 2.16.840.1.747161.3.579. 2.593 1944 Unknown [id number] 2.16.840.1.280444.3.579. 2.593 1944 Unknown [id number] 2.16.840.1.991422.3.579. 2.593 1944 Unknown [id number] 2.16.840.1.184379.3.579. 2.593 1944 Unknown [id number] 2.16.840.1.962298.3.579. 2.593 1944 Unknown [id number] 2.16.840.1.469441.3.579. 2.593 1944 Unknown [id number] 2.16.840.1.648107.3.579. 2.593 1944 Unknown [id number] 2.16.840.1.133297.3.579. 2.593 1944 Unknown [id number] 2.16.840.1.870874.3.579. 2.593 1944 Unknown [id number] 2.16.840.1.339831.3.579. 2.593 1944 Unknown [id number] 2.16.840.1.922494.3.579. 2.593 1944 Unknown [id number] 2.16.840.1.708551.3.579. 2.593 1944 Unknown [id number] 2.16.840.1.233757.3.579. 2.593 1944 Unknown [id number] 2.16.840.1.415055.3.579. 2.593 1944 Unknown [id number] 2.16.840.1.470681.3.579. 2.593 1944 Unknown [id number] 2.16.840.1.948627.3.579. 2.593 1944 Unknown [id number] 2.16.840.1.845587.3.579. 2.593 1944 Unknown [id number] 2.16.840.1.357375.3.579. 2.593 1944 Unknown [id number] 2.16.840.1.213302.3.579. 2.593 1944 Unknown [id number] 2.16.840.1.478425.3.579. 2.593 1944 Unknown [id number] 2.16.840.1.578774.3.579. 2.593 1944 Unknown [id number] 2.16.840.1.032247.3.579. 2.593 1944 Unknown [id number] 2.16.840.1.875363.3.579. 2.593 1944 Unknown [id number] 2.16.840.1.852518.3.579. 2.593 1944 Unknown [id number] 2.16.840.1.454056.3.579. 2.593 1944 Unknown [id number] 2.16.840.1.860338.3.579. 2.593 1944 Unknown [id number] 2.16.840.1.991899.3.579. 2.593 1944 Unknown [id number] 2.16.840.1.618303.3.579. 2.593 1944 Unknown [id number] 2.16.840.1.325233.3.579. 2.593 1944 Unknown [id number] 2.16.840.1.747776.3.579. 2.593 1944 Unknown [id number] 2.16.840.1.739447.3.579. 2.593 1944 Unknown [id number] 2.16.840.1.506056.3.579. 2.593 1944 Unknown [id number] 2.16.840.1.807861.3.579. 2.593 1944 Unknown [id number] 2.16.840.1.097851.3.579. 2.593 1944 Unknown [id number] 2.16.840.1.407858.3.579. 2.1259 1944 Unknown [id number] 2.16.840.1.817328.3.579. 2.1259 1944 Unknown [id number] 2.16.840.1.348341.3.579. 2.1259 1944 Unknown [id number] 2.16.840.1.390991.3.579. 2.1259 Medicare Medicare Outpatient [id number] 2T [id number] Unknown [id number] 2.16.840.1.039907.3.579. 2.593 Unknown [id number] 2.16.840.1.070445.3.579. 2.593 Unknown [id number] 2.16840.1.590654.3.579. 2.531 Social History Date Type Detail Facility Start: 03-09-2011 End: 02-26-2022 Tobacco smoking status NHIS Ex-smoker [facility] Work Phone: Start: 02-15-1967 End: 02-15-1975 History of tobacco use Current smoker [facility] Work Phone: Start: 02-15-1967 End: 02-15-1975 History of tobacco use Cigarette Smoker [facility] Work Phone: Start: 04-08-2021 End: 02-26-2022 Alcohol intake Current drinker of alcohol (finding) [facility] Start: 1945 Sex Assigned At Not on file [facility] Start: 03-09-2011 End: 03-02-2022 Cigarettes smoked current (pack per day) - Reported 1 [facility] Work Phone: Start: 03-09-2011 End: 02-26-2022 Tobacco use and exposure Smokeless tobacco non-user [facility] Start: 09-25-2021 History SDOH Financial 5 [facility] Start: 09-25-2021 History SDOH Food Worry 1 [facility] Start: 09-25-2021 History SDOH Transpo rt Med 2 [facility] Start: 09-14-2021 End: 01-12-2022 Exposure to SARS-CoV-2 (event) Not sure [facility] Start: 02-26-2022 End: 03-02-2022 Sex Assigned At [facility] Work Phone: Start: 1945 Sex Assigned At Male F [facility] How hard is it for y ou to pay for the very basics like food, housing, medical care, and heating Not hard at all [facility] Work Phone: (I/We) worried wheth er (my/our) food would run out before (I/we) got money to buy more. Never true [facility] Work Phone: In the past 12 month s, was there a time when you were not able to pay the mortgage or rent on time? No [facility] Work Phone: Start: 03-18-2023 End: 03-30-2024 Alcohol intake Ex-drinker (finding) [facility] How often to you hav e a drink containing alcohol? Never [facility] Medical Equipment Procedure Code Equipment Code Equipment Original Text Equipment Identifier Dates Tray Powerline S urecuff 5fr Polyurethane Catheter 1 Lumen Microintroducer - [id number] Start: 12-06-2021 [facility]-[id number] Monika [id number]-[id number] Start: 04-22-2012 Functional Status Date Assessment Result Facility 12-11-2021 Are you deaf, or do you have serious difficulty hearing Yes 12/11/2021 4:15 PM Matilde Oliva RN Yes [facility] 12-11-2021 Are you blind, or do you have serious difficulty seeing, even when wearing glasses Yes 12/11/2021 4:15 PM Matilde Oliva RN Yes [facility] 12-11-2021 Do you have serious difficulty walking or climbing stairs Yes 12/11/2021 4:15 PM Matilde Oliva RN Yes [facility] 12-11-2021 Do you have difficul ty dressing or bathing Yes 12/11/2021 4:15 PM Matilde Oliva RN Yes [facility] 12-11-2021 Because of a physica l, mental, or emotional condition, do you have difficulty doing errands alone such as visiting a physician's office or shopping Yes 12/11/2021 4:15 PM EDT Matilde Sutton, RAFAL Yes [facility] Mental Status Date Assessment Result Facility 12-11-2021 Because of a physica l, mental, or emotional condition, do you have serious difficulty concentrating, remembering, or making decisions Yes 12/11/2021 4:15 PM EDT Matilde Sutton RN Yes [facility] Clinical Notes 06-05-2021 to 04-11-2024 Telephone Encounter - Asia Pike MD - 03/31/2024 11:44 AM ESTTelephone Encounter - Asia Pike MD - 03/31/2024 11:44 AM Eder Cabrera DO - 03/30/2024 1:41 PM EST Note Date & Type Note Facility 04-11-2024 Note [facility] Consult Note Reason for visit: HFrEF, PPM, CAD s/p CABG HPI: Alex Almonte is a 78 y.o. year old with past medical history of CAD s/p CABG x1 2012 and PCI to OM2 in 2017, HFrEF, HTN, sinus node dysfunction s/p PPM, neurogenic orthostatic hypotension, DM type II, ESRD s/p renal tx 03/2001, hx AKA amputation left leg d/t infection 2002. He had hospital admission 11/2021 and was found to have acute kidney injury secondary to infection and was found to be in A-fib RVR. He had echocardiogram 11/24/2021 showed EF 45 to 50%, LA mildly dilated, mild concentric LVH Pulse check reveals AF with RVR Device Check shows normal device function and stable lead threshold and 100% AF for >2 yrs ECHO 06/2019 The left ventricle is normal [...] moderate to large second obtuse marginal branch ofthe left circumflex coronary artery successfully treated by balloonangioplasty and Synergy drug-eluting stent placement. 2. Occlusion of the mid left anterior descending coronary artery withdistal flow being supplied by a patent left internal mammary artery graft. 3. Severe stenosis of a moderate-sized second diagonal branch of the leftanterior descending coronary artery with heavy calcification. 4. Chronic total occlusion of the right coronary artery with [id number]-lq-wcmty collaterals. 5. Normal global left ventricular systolic function by noninvasiveimaging. RECOMMENDATIONS: 1. Aggressive cardiovascular risk factor modification. 2. Optimization of medical management; aspirin 81 mg lifelong, Plavix 75mg for a minimum of 6 months preferably long-term, statin plus or minus abeta bert and an angiotensin-converting enzyme inhibitor as tolerated. 3. Should the patient have further symptomatology or appropriate clinicalindications, potential revascularization of the second diagonal branchcould be considered. The chronic total occlusion of the right coronaryartery appears to be a complex high risk lesion; revascularization shouldbe reserved for significant symptomatology or large area of inferiorischemia. PMH: Past Medical History: Diagnosis Date Abnormal ECG Arrhythmia Atrial fibrillation (CMS/HCC) Chronic kidney disease Coronary artery disease Diabetes mellitus (CMS/HCC) Orthostatic hypotension PSH: Past Surgical History: Procedure Laterality Date CARDIAC CATHETERIZATION CORONARY ARTERY BYPASS GRAFT CORONARY STENT PLACEMENT INSERT / REPLACE / REMOVE PACEMAKER LEG AMPUTATION TRANSPLANTATION RENAL SH: Social Determinants of Health Tobacco Use: Medium Risk (03/30/2024) Received from [facility] Patient History Smoking Tobacco Use: Former Smokeless Tobacco Use: Never Passive Exposure: Not on file Alcohol Use: Not At Risk (10/08/2022) Re[facility] from [facility] AUDIT-C Frequency of Alcohol Consumption: Never Average Number of Drinks: Patient does not drink Frequency of Binge Drinking: Never Financial Resource Strain: Low Risk (09/25/2021) Received from [facility] Overall Financial Resource Strain (CARDIA) Difficulty of Paying Living Expenses: Not hard at all Food Insecurity: No Food Insecurity (09/25/2021) Received from [facility] Hunger Vital Sign Worried About Running Out of Food in the Last Year: Never true Ran Out of Food in the Last Year: Never true Transportation Needs: No Transportation Needs (09/25/2021) Received from [facility] PRAPARE - Transportation Lack of Transportation (Medical): No Lack of Transportation (Non-Medical): No Physical Activity: Not on file Stress: Not on file Social Connections: Not on file Intimate Partner Violence: Unknown (04/08/2023) [place] Safety & Environment Fear of Current or Ex-Partner: Not on file Emotionally Abused: Not on file Physically Abused: Not on file Sexually Abused: Not on file Physically or Sexually Abused: Not on file Depression: Not at risk (03/30/2024) Received from [facility] PHQ-2 Patient Health Questionnaire-2 Score: 0 Housing Stability: Unknown (09/25/2021) Received from [facility] Housing Stability Vital Sign Unable to Pay for Housing in the Last Year: No Number of Places Live (more content not included)... [facility] 03-31-2024 Telephone encounter Note called to pt March 31, 2024 11:44 AM Pt. in [facility] x 2 yrs [facility] [phone] Related to his nurse Marichuy, INR 4.3, they are managing Related we are not managing but wanted to ensure result was received and reviewed with his team. Asia Pike MD [facility] 03-31-2024 Miscellaneous Notes called to pt March 31, 2024 11:44 AM Pt. in [facility]- x 2 yrs [facility] [phone] Related to his nurse Marichuy, INR 4.3, they are managing Related we are not managing but wanted to ensure result was received and reviewed with his team. Asia Pike MD documented in this encounter [facility] 03-30-2024 History of Present illness Narrative Associated Problem(s): Type 1 diabetes mellitus with hypertension and end stage renal disease on dialysis ([facility]) During the appointment today all pertinent [...] have any problems or questions. Alex Almonte is making improvements and encouraged on this. , The patient is wearing their cgm on a daily basis and making decisions in regards to adjusting insulin daily as well for at least the last 60 days , Instructed on the importance of taking insulin before eating. If it has been more than 30-45 min since eating they should not give the meal dose but should just give a correction insulin dose. , Instructions given today include: Hypoglycemia management and Insulin instructions. Will decrease lantus and decrease insulin for breakfast/lunch, increase insulin at dinner. Images from the original note were not included. Alex Almonte is a 78 y.o. male presents with chief complaint of Diabetes HPI: Diabetes Mellitus Follow-up: Alex Almonte is here for follow-up evaluation of diabetes mellitus. The initial diagnosis of diabetes was made in 1976 Diabetes complications: neuropathy, cardiovascular disease, peripheral vascular disease, amputation, and non healing ulcers He has been checking his blood glucose with a [employer] shaan 3 CGM - READER- on a daily basis. Bg come down overnight and sometimes drops overnight as well as after breakfast and lunch. Will rise in the afternoon and after dinner. Last A1c: 8.4 (12/23/23) Last eye exam: over due Current concerns include: Bg in the office 78 and shaan stated 77. He took one glucose tab in the waiting room. Admits to feeling like it was dropping. Bg levels: unsure how they are compared to last visit. He feels some nurses only give set doses of insulin without corrections. Diet: [facility] provided food Drinks: water, diet coke, unsweetened ice tea, occasional boost Exercise: none Hypoglycemia: very seldom overnight SUBJECTIVE: PROBLEM LIST SOCIAL ALLERGIES: Patient Active Problem List Diagnosis PVD (peripheral vascular disease) ([facility]) Type 1 diabetes mellitus with hypertension and end stage renal disease on dialysis ([facility]) Type 1 diabetes mellitus with circulatory complication ([facility]) Type 1 diabetes mellitus with hypoglycemia and without coma ([facility]) 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 ([facility]) Adrenal cortical hypofunction ([facility]) Amputated below knee ([facility]) Autonomic neuropathy Benign essential hypertension ([facility]) Benign prostatic hyperplasia Cardiac pacemaker in situ Chronic orthostatic hypotension End-stage renal disease ([facility]) History of cardiovascular disorder History of coronary artery bypass surgery History of renal transplant ([facility]) Paroxysmal atrial fibrillation ([facility]) Social History Tobacco Use Smoking status: Former Current packs/day: 0.00 Types: Cigarettes Quit date: 1975 Years since quittin.1 Smokeless tobacco: Never Vaping Use Vaping status: Never Used Substance Use Topics Alcohol use: Not Currently Drug use: Never Allergies Allergen Reactions Pyridostigmine Nausea Only Other Reaction(s): GI Upset, GI upset , nausea Synopsis [facility] 03/30/2024 01/01/2024 00:00 Antidiabetic medications Glucagon (rDNA) 1 mg Once PRN IM (1 MG KIT) Inject 1 mg into the shoulder, thigh, or buttocks 1 (one) time if needed for low blood sugar Insulin Glargine 18 Units q AM SC-Discontinued (Dose adjustm) 18 Units q AM SC Insulin Glargine 17 Units q AM SC Insulin Lispro 4 units breakfast, 6 units lunch, 8 units dinner, 2 unit afternoon snack plus correction 1:50 > 150 mg/dl (max daily 30 units) Bedtime correction 200-300 1 unit, > 300 2 units (100 unit/ml SOLN)-Discontinued (Dose adjustm) 4 units breakfast, 6 units lunch, 8 units dinner, 2 unit afternoon snack plus correction 1:50 > 150 mg/dl (max daily 30 units) Bedtime correction 200-300 1 unit, > 300 2 units (100 unit/ml SOLN) Insulin Lispro 3 units breakfast, 5 units lunch, 10 units dinner, 2 unit afternoon snack plus correction 1:50 > 150 mg/dl (max daily 30 units) Bedtime correction 200-300 1 unit, > 300 2 units (100 unit/ml SOLN) Labs [facility] HEMOGLOBIN A1C/HEMOGLOBIN.TOTAL:MFR:PT:BLD:Q N: 7.7 Outpatient prescription Medication marked as long-term Patient-reported The ASCVD Risk score (Nehemias COLVIN, et al., 2019) failed to calculate for the following reasons: Cannot find a previous HDL lab Cannot find a previous total cholesterol lab REVIEW OF SYMPTOMS: Review of Systems Constitutional: Positive for fatigue. Negative for appetite change and unexpected weight change. Eyes: Positive for visual disturbance. Respiratory: Negative for cough, shortness of breath and wheezing. Cardiovascular: Negative for chest pain, palpitations and leg swelling. Neurological: Positive for numbness. Endocrine: Negative for polydipsia, polyphagia and polyuria. OBJECTIVE: 03/30/2024 11:25 AM 12/23/2023 1:13 PM 09/17/2023 11:25 AM Vitals Systolic 110 122 120 Diastolic 62 66 68 Heart Rate 85 68 70 Temp 97.7 F 98 F 98.3 F Visit Report Report Report Report Physical Exam Constitutional: General: He is not in acute distress. Appearance: Normal appearance. Cardiovascular: Rate and Rhythm: Normal rate and regular rhythm. Heart sounds: No murmur heard. No friction rub. No gallop. Pulmonary: Breath sounds: Normal breath sounds. No wheezing, rhonchi or rales. Musculoskeletal: Comments: Bilateral amputee Neurological: Mental Status: He is alert. 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 Alex Almonte is making improvements and encouraged on this. , The patient is wearing their cgm on a daily basis and making decisions in regards to adjusting insulin daily as well for at least the last 60 days , Instructed on the importance of taking insulin before eating. If it has been more than 30-45 min since eating they should not give the meal dose but should just give a correction insulin dose. , Instructions given today include: Hypoglycemia management and Insulin instructions. Will decrease lantus and decrease insulin for breakfast/lunch, increase insulin at dinner. 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 Patient's Medications New Prescriptions No medications on file Previous Medications ACETAMINOPHEN (TYLENOL) 500 MG TABLET Take 1,000 mg by mouth every 6 (six) hours if needed for mild pain. ASPIRIN 81 MG EC TABLET Take 81 mg by mouth in the morning. ATORVASTATIN (LIPITOR) 40 MG TABLET Take 40 mg by mouth in the morning. CONTINUOUS BLOOD GLUC STUDENT DEVELOPMENT ADVISOR (FREESTYLE SHAAN 3 READER) DEVICE 1 Device See administration instructions CONTINUOUS BLOOD GLUC SENSOR (FREESTYLE SHAAN 3 SENSOR) MISC Inject 1 Device under the skin every 14 (fourteen) days FAMOTIDINE (PEPCID) 20 MG TABLET Take 20 mg by mouth in the morning. GLUCAGON 1 MG INJECTION Inject 1 mg into the shoulder, thigh, or buttocks 1 (one) time if needed for low blood sugar IPRATROPIUM-ALBUTEROL (DUO-NEB) 0.5-2.5 MG/3 ML NEBULIZER SOLUTION Take by nebulization every 6 (six) hours if needed IRON POLYSACCHARIDES (NU-IRON,NIFEREX) 150 MG CAPSULE Take 150 mg by mouth every other day LATANOPROST (XALATAN) 0.005 % OPHTHALMIC SOLUTION PREDNISONE [...] as needed WARFARIN (COUMADIN) 4 MG TABLET 2mg every day except 4 mg on and Modified Medications Modified Medication Previous Medication INSULIN LISPRO (HUMALOG) 100 UNIT/ML INJECTION insulin lispro (HumaLOG) 100 unit/ml injection 3 units breakfast, 5 units lunch, 10 units dinner, 2 unit afternoon snack plus correction 1:50 > 150 mg/dl (max daily 30 units) Bedtime correction 200-300 1 unit, > 300 2 units 4 units breakfast, 6 units lunch, 8 units dinner, 2 unit afternoon snack plus correction 1:50 > 150 mg/dl (max daily 30 units) Bedtime correction 200-300 1 unit, > 300 2 units LANTUS SOLOSTAR 100 UNIT/ML PEN Lantus SoloStar 100 UNIT/ML pen Inject 17 Units under the skin in the morning. Inject 18 Units under the skin in the morning. Discontinued Medications No medications on file I have reviewed and reconciled the history and medication list with the patient today. 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 Alex Almonte is struggling to gain control of their diabetes. I am very concerned for diabetes related complications. , The patient is wearing their cgm on a daily basis and making decisions in regards to adjusting insulin daily as well for at least the last 60 days , Discussed dietary changes at length. Encouraged to limit simple carbs and focus more on healthy protein/fat with all meals and snacks. They should also avoid any sugary drinks. , Instructions given today include: Hypoglycemia management and Insulin instructions. Will increase all of his insulin to try and improve control. Ok for 1-2 units of correction if bg > 200-300 at that time. Images from the original note were not included. Alex Almonte is a 78 y.o. male presents with chief complaint of Diabetes HPI: Diabetes Mellitus Follow-up: Alex Almonte is here for follow-up evaluation of diabetes mellitus. The initial diagnosis of diabetes was made in 1976 Diabetes complications: neuropathy, cardiovascular disease, peripheral vascular disease, amputation, and non healing ulcers He has been checking his blood glucose with a Quri shaan 3 CGM - READER- on a daily basis. Has been running high most mornings and overnight. Will hold steady or come down some during the day. Last A1c: 8.1 (09/17/23) Last eye exam: over due Current concerns include: He forgot the Shaan reader today. Bg levels are higher the past month. No changes in meds, no s/s of illness or infection. He did have an episode of diarrhea this am but that is not normal. He is asking for a correction scale if bg levels go above 300. 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 ([facility]) Type 1 diabetes mellitus with hypoglycemia and without coma ([facility]) 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 ([facility]) Adrenal cortical hypofunction ([facility]) Amputated below knee ([facility]) Autonomic neuropathy Benign essential hypertension ([facility]) Benign prostatic hyperplasia Cardiac pacemaker in situ Chronic orthostatic hypotension End-stage renal disease ([facility]) History of cardiovascular disorder History of coronary artery bypass surgery History of renal transplant ([facility]) Paroxysmal atrial fibrillation ([facility]) Social History Tobacco Use Smoking status: Former Current packs/day: 0.00 Types: Cigarettes Quit date: 1975 Years since quittin.8 Vaping Use Vaping status: Never Used Substance Use Topics Alcohol use: Not Currently Drug use: Never Allergies Allergen Reactions Pyridostigmine Nausea Only Other Reaction(s): GI Upset, GI upset , nausea Synopsis SmartLink Latest Ref Rng & Units 12/24/2023 00:00 12/23/2023 11/17/2023 08:55 Antidiabetic medications Glucagon (rDNA) 1 mg Once PRN IM (1 MG KIT) 1 mg Once PRN IM (1 MG KIT) 1 mg Insulin Glargine 16 Units q AM SC-Discontinued (Dose adjustm) 16 Units q AM SC 16 Units q AM SC Insulin Glargine 18 Units q AM SC Insulin Lispro 3 units breakfast, 4 units lunch, 8 units dinner, 2 unit afternoon snack plus correction 1:50 mg/dl (max daily 30 units) (100 unit/ml SOLN)-Discontinued (Dose adjustm) 3 units breakfast, 4 units lunch, 8 units dinner, 2 unit afternoon snack plus correction 1:50 mg/dl (max daily 30 units) (100 unit/ml SOLN) 3 units breakfast, 4 units lunch, 8 units dinner, 2 unit afternoon snack plus correction 1:50 mg/dl (max daily 30 units) (100 unit/ml SOLN) Insulin Lispro 4 units breakfast, 6 units lunch, 8 units dinner, 2 unit afternoon snack plus correction 1:50 > 150 mg/dl (max daily 30 units) Bedtime correction 200-300 1 unit, > 300 2 units (100 unit/ml SOLN) Labs MHPT A1C 8.4 Creatinine 0.7 - 1.3 MG/DL 1.42 Outpatient prescription Medication marked as long-term Patient-reported This result is from an external source. REVIEW OF SYMPTOMS: Review of Systems Constitutional: Positive for fatigue. Negative for appetite change and unexpected weight change. Eyes: Positive for visual disturbance. Respiratory: Negative for cough, shortness of breath and wheezing. Cardiovascular: Negative for chest pain, palpitations and leg swelling. Neurological: Positive for numbness. Endocrine: Negative for polydipsia, polyphagia and polyuria. OBJECTIVE: 12/23/2023 1:13 PM 09/17/2023 11:25 AM 06/17/2023 2:13 PM Vitals Systolic 122 120 120 Diastolic 66 68 64 Heart Rate 68 70 78 Temp 98 F 98.3 F 98.2 F Height (in) 5' 4 Visit Report Report Report Report Physical Exam Constitutional: General: He is not in acute distress. Appearance: Normal appearance. Cardiovascular: Rate and Rhythm: Normal rate and regular rhythm. Heart sounds: No murmur heard. No friction rub. No gallop. Pulmonary: Breath sounds: Normal breath sounds. No wheezing, rhonchi or rales. Musculoskeletal: Comments: Bilateral lower ext amputee Neurological: Mental Status: He is alert. 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 Alex Almonte is struggling to gain control of their diabetes. I am very concerned for diabetes related complications. , The patient is wearing their cgm on a daily basis and making decisions in regards to adjusting insulin daily as well for at least the last 60 days , Discussed dietary changes at length. Encouraged to limit simple carbs and focus more on healthy protein/fat with all meals and snacks. They should also avoid any sugary drinks. , Instructions given today include: Hypoglycemia management and Insulin instructions. Will increase all of his insulin to try and improve control. Ok for 1-2 units of correction if bg > 200-300 at that time. 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 Patient's Medications New Prescriptions No medications on file Previous Medications ACETAMINOPHEN (TYLENOL) 500 MG TABLET Take 1,000 mg by mouth every 6 (six) hours if needed for mild pain. ASPIRIN 81 MG EC TABLET Take 81 mg by mouth in the morning. ATORVASTATIN (LIPITOR) 40 MG TABLET Take 40 mg by mouth in the morning. CONTINUOUS BLOOD GLUC STUDENT DEVELOPMENT ADVISOR (FREESTYLE SHAAN 3 READER) DEVICE 1 Device See administration instructions CONTINUOUS BLOOD GLUC SENSOR (FREESTYLE SHAAN 3 SENSOR) MISC Inject 1 Device under the skin every 14 (fourteen) days FAMOTIDINE (PEPCID) 20 MG TABLET Take 20 mg by mouth in the morning. GLUCAGON 1 MG INJECTION Inject 1 mg into the shoulder, thigh, or buttocks 1 (one) time if needed for low blood sugar IPRATROPIUM-ALBUTEROL (DUO-NEB) 0.5-2.5 MG/3 ML NEBULIZER SOLUTION [...] as needed WARFARIN (COUMADIN) 4 MG TABLET 2mg every day except 4 mg on and Modified Medications Modified Medication Previous Medication INSULIN LISPRO (HUMALOG) 100 UNIT/ML INJECTION insulin lispro (HumaLOG) 100 unit/ml injection 4 units breakfast, 6 units lunch, 8 units dinner, 2 unit afternoon snack plus correction 1:50 > 150 mg/dl (max daily 30 units) Bedtime correction 200-300 1 unit, > 300 2 units 3 units breakfast, 4 units lunch, 8 units dinner, 2 unit afternoon snack plus correction 1:50 mg/dl (max daily 30 units) LANTUS SOLOSTAR 100 UNIT/ML PEN Lantus SoloStar 100 UNIT/ML pen Inject 18 Units under the skin in the morning. Inject 16 Units under the skin in the morning. Discontinued Medications No medications on file I have reviewed and reconciled the history and medication list with the patient today. documented in this encounter [facility] 11-18-2023 Telephone encounter Note LATOSHA: 2021 [facility] 11-18-2023 Miscellaneous Notes LATOSHA: 2021 documented in this encounter [facility] 10-06-2023 Telephone encounter Note Called [facility] [phone] where pt resides, spoke with his Nurse, Socorro regarding INR of 5.3, they were aware and are holding Coumadin x 2 doses and will resume at 4mg on Sat.10/08. Also, changed lab orders from Dr. Brown to Dr. Pike. Van Olivarez APRN.CNP [facility] 10-06-2023 Miscellaneous Notes Called [facility] [phone] where pt resides, spoke with his NurseSocorro regarding INR of 5.3, they were aware and are holding Coumadin x 2 doses and will resume at 4mg on Sat.24. Also, changed lab orders from Dr. Brown to Dr. Pike. Van Olivarez APRN.CNP documented in this encounter [facility] 05-19-2023 Note [facility] Progress Note Reason [...] checked he ends up in the ER. He had hospital admission 11/2021 and was [...] at about 50-60 systolic. patient with friend/ tanker driver from facility, we will take patient to the ER for evaluation --------- Per dr. Alvarez 03/2021 Mr. [place], [place] , presents to clinic for routine follow [...] of the right coronary artery with robust [id number] collaterals. 5. Normal global left ventricular systolic [...] Follow up with Dr. Galvez in the [facility] in the next 2 weeks; he may follow up with Dr. Orosco as needed for interventional issues. 5. Follow up wi (more content not included)... [facility] 04-11-2023 Evaluation note Encounter Date [...] (ICD-10 - Z89.619) WC dependent. 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 He is being transported by a tanker driver. 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 [id number] Evaluation note* Encounter Date Diagnosis Assessment Notes [...] are maintaining regular scheduled appts with their odd piece checker. No bleeding complications Dec, Hyperlipidemia LDL goal [...] (current) use of insulin (ICD-10 - Z79.4) [facility] Other 10-26-2023 Evaluation note* Encounter Date Diagnosis Assessment Notes Treatment Notes Treatment Clinical Notes Nov, Longstanding persistent atrial fibrillation (ICD-10 - I48.11) This patient is in NSR or rate controlled. This patient is anticoagulated to prevent thromboembolic events. They are maintaining regular scheduled appts with their odd piece checker. No bleeding complications Nov, Hyperlipidemia LDL goal [...] (current) use of insulin (ICD-10 - Z79.4) [facility] Other 09-28-2023 Evaluation note* Encounter Date Diagnosis [...] are maintaining regular scheduled appts with their odd piece checker. No bleeding complications Oct, Type 1 diabetes [...] - Z94.0) Continue routine surveillance labs. Oct, jail (current) use of insulin (ICD-10 - Z79.4) [facility] Other 09-01-2023 Miscellaneous Notes* Telephone Encounter - Mary Martinez - 10/16/2022 1:08 PM EDT Pharmacy comment: REQUEST FOR 90 DAYS PRESCRIPTION. DX Code Needed. 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 No bleeding complications Sep, Type 1 diabetes [...] risk for cerebrovascular and cardiovascular disease. Sep, jail (current) use of insulin (ICD-10 - Z79.4) Sep, Kidney transplant status (ICD-10 - Z94.0) f/u transplant clinic Continue surveillance labs [facility] Other 08-08-2023 Miscellaneous Notes* Telephone Encounter - Ariadna Mcdowell Tech - 09/22/2022 8:58 AM EDT Pharmacy requesting refills as follows: Requested Prescriptions Pending Prescriptions Disp Refills tacrolimus IR (PROGRAF) 1 mg capsule Sig: Take 1 capsule by mouth DAILY AT 6 PM. Please review and advise. Ariadna Mcdowell, [facility] note* Encounter Date Diagnosis Assessment Notes Treatment Notes Treatment Clinical Notes Aug, Longstanding persistent atrial fibrillation (ICD-10 - I48.11) This patient is in NSR or rate controlled. This patient is anticoagulated to prevent thromboembolic events. They are maintaining regular scheduled appts with their odd piece checker. No s/s bleeding Aug, Type 1 diabetes [...] risk for cerebrovascular and cardiovascular disease. Aug, jail (current) use of insulin (ICD-10 - Z79.4) Aug, Kidney transplant status (ICD-10 - Z94.0) Continue close surveillance w/ labs [facility] Other 06-22-2023 Evaluation note* Encounter Date Diagnosis Assessment Notes [...] are maintaining regular scheduled appts with their odd piece checker. No bleeding complications Jul, Type 1 diabetes [...] cerebrovascular and cardiovascular disease. Jul, termite exterminator helper (current) use of insulin (ICD-10 - Z79.4) Jul, Kidney transplant status (ICD-10 - Z94.0) Monthly labs, ongoing surveillance from transplant clinic [facility] Other 05-15-2023 Progress note Author Sadia Aguilar [facility] June 29, 2022 2:47pm Note Date/Time June 29, 2022 2:46p m [facility] [address] [place] [address] Wound Center Provider Note Signed Patient: Alex Almonte MR#: [id number] : 1945 Acct:[id number] Age/Sex: 76 / M Copies to: DO Sadia Whyte APRN~ HPI Date of Visit Date of Visit: Date of Service: 06/29/2022 Time of Service: 14:45 Narrative HPI: 12/30/21 Alex is a 76 year old male presenting to [facility] wound care for aninitial visit for eval and treatment of a sacral/coccyx area pressure ulcer. He resides at [facility]. There is an BLOWING ENGINEER present for the visit. Medicalhoney gel [...] his brief that was cleaned by this investigative writer as well as another nursing staff [...] from initial visit here Mode of Arrival/ Portfolio Analyst: Facility vehicle Assistive Device Used Today: Wheelchair and Indra Lives with:: Care/Nursing Facility Appetite Description: Within Normal Limits Who helps w/ dressing change?: Nursing Facility Why Do You Need Help?: Can't Reach Ulcer, Limited mobility and Taxing effort to leave home Smoking Status: Former smoker [facility] Medical History (Updated 03/03/22 @ [...] Ulcer/Injury Staging: Unstageable Bed Appearance: Beefy Red, Thurston, Yellow and Rolled Edges Percent of Wound [...] Spent With Patient (min): 15 Dictated By: Sdaia Aguilar APRN DD/ 44 Signed By: <Electronically signed by DAVID Aguilar> 06/29/221446 [facility] Work Phone: 1(184) 107-550105-11-2023 Evaluation note* Encounter Date Diagnosis Assessment Notes [...] are maintaining regular scheduled appts with their odd piece checker. No bleeding complications June, Hyperlipidemia LDL goal <100 (ICD-10 - E78.5) Instructed on diet and exercise with continued statin therapy.Discussed the beneficial effects of lowering cholesterol in reducing the risk for cerebrovascular and cardiovascular disease. 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 - Z79.4) June, Kidney transplant status (ICD-10 - Z94.0) No s/s rejection [facility] Other 04-24-2023 Progress note Author Sadia Aguilar [facility] June 08, 2022 2:10pm Note Date/Time June 08, 2022 2:1 0pm [facility] [address] [place] [address] Wound Center Provider Note Signed Patient: Alex Almonte MR#: [id number] : 1945 Acct:[id number] Age/Sex: 76 / M Copies to: Devon Moreira,DO Sadia Aguilar, PRINCIPAL SYSTEMS ARCHITECT~ HPI Date of Visit Date of Visit: Date of Service: 06/08/2022 Time of Service: 14:07 Narrative HPI: 12/30/21 Alex is a 76 year old male presenting to [facility] wound care for aninitial visit for eval and treatment of a sacral/coccyx area pressure ulcer. He resides at [facility]. There is an BLOWING ENGINEER present for the visit. Medicalhoney gel [...] his brief that was cleaned by this investigative writer as well as another nursing staff [...] from initial visit here Mode of Arrival/ Portfolio Analyst: Facility vehicle Assistive Device Used Today: Wheelchair and Indra Lives with:: Care/Nursing Facility Appetite Description: Within Normal Limits Who helps w/ dressing change?: Nursing Facility Why Do You Need Help?: Can't Reach Ulcer, Limited mobility and Taxing effort to leave home Smoking Status: Former smoker [facility] Medical History (Updated 03/03/22 @ [...] Ulcer/Injury Staging: Unstageable Bed Appearance: Beefy Red, Thurston, Yellow and Rolled Edges Percent of Wound [...] <Electronically signed by DAVID Aguilar> 06/08/22 1410 [facility] Work Phone: 1(974) 299-884104-21-2023 Evaluation note* Encounter Date Diagnosis Assessment Notes [...] are maintaining regular scheduled appts with their odd piece checker. 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 No open ulcerations present Pain controlled [facility] Other 03-27-2023 Progress note Author Sadia Aguilar [facility] May 11, 2022 1:41pm Note Date/Time May 11, 2022 1:4 0pm [facility] ENTER [address] [place] [address] Wound Center Provider Note Signed Patient: Alex Almonte MR#: [id number] : 1945 Acct:[id number] Age/Sex: 76 / M Copies to: Devon Moreira,DO Sadia Aguilar, PRINCIPAL SYSTEMS ARCHITECT~ HPI Date of Visit Date of Visit: Date of Service: 05/11/2022 Time of Service: 13:38 Narrative HPI: 12/30/21 Alex is a 76 year old male presenting to [facility] wound care for aninitial visit for eval and treatment of a sacral/coccyx area pressure ulcer. He resides at [facility]. There is an BLOWING ENGINEER present for the visit. Medicalhoney gel [...] his brief that was cleaned by this investigative writer as well as another nursing staff [...] from initial visit here Mode of Arrival/ Portfolio Analyst: Facility vehicle Assistive Device Used Today: Wheelchair and Indra Lives with:: Care/Nursing Facility Appetite Description: Within Normal Limits Who helps w/ dressing change?: Nursing Facility Why Do You Need Help?: Can't Reach Ulcer, Limited mobility and Taxing effort to leave home Smoking Status: Former smoker [facility] Medical History (Updated 03/03/22 @ [...] unit/mL subcutaneous solution 6 units subcut DAILY 12/09/19[History Confirmed 05/11/22] latanoprost 0.005 % eye drops [...] Ulcer/Injury Staging: Unstageable Bed Appearance: Beefy Red, Thurston and Yellow Percent of Wound Bed Granulated/Red: [...] <Electronically signed by DAVID Aguilar> 05/11/22 [address] [facility] Work Phone: 1(689) 642-990703-23-2023 Evaluation note* Encounter Date Diagnosis Assessment Notes [...] are maintaining regular scheduled appts with their odd piece checker. Apr, Type 1 diabetes mellitus with hyperglycemia [...] are reviewed at the office visit Apr, jail (current) use of insulin (ICD-10 - Z79.4) Apr, Kidney transplant status (ICD-10 - Z94.0) Serial labs by clinic tatiana Oshea [facility] Other 02-28-2023 Progress note Author Sadia Aguilar [facility] April 14, 2022 2:19pm Note Date/Time April 14, 2022 2:18pm [facility] ENTER [address] [place] [address] Wound Center Provider Note Signed Patient: Alex Almonte MR#: [id number] : 1945 Acct:[id number] Age/Sex: 76 / M Copies to: Devon Moreira,DO Sadia Aguilar APRN~ HPI Date of Visit Date of Visit: Date of Service: 04/14/2022 Time of Service: 14:18 Narrative HPI: 12/30/21 Alex is a 76 year old male presenting to [facility] wound care for aninitial visit for eval and treatment of a sacral/coccyx area pressure ulcer. He resides at [facility]. There is an BLOWING ENGINEER present for the visit. Medicalhoney gel [...] his brief that was cleaned by this investigative writer as well as another nursing staff [...] from initial visit here Mode of Arrival/ Portfolio Analyst: Facility vehicle Assistive Device Used Today: Wheelchair and Indra Lives with:: Care/Nursing Facility Appetite Description: Within Normal Limits Who helps w/ dressing change?: Nursing Facility Why Do You Need Help?: Can't Reach Ulcer, Limited mobility and Taxing effort to leave home Smoking Status: Former smoker [facility] Medical History (Updated 03/03/22 @ [...] Ulcer/Injury Staging: Unstageable Bed Appearance: Beefy Red, Thurston and Yellow Percent of Wound Bed Granulated/Red: [...] By: <Electronically signed by DAVID Aguilar> 04/14/22 [facility] Work Phone: 1([phone]) 743-356902-13-2023 Miscellaneous Notes* Telephone Encounter - Van Olivarez [...] to pharmacy. Kellenfransicovaibhav Dunia documented in this encounterMercy Health02-07-2023 Progress note Author Sadia Aguilar [facility] March 24, 2022 3:00pm Note Date/Time March 24, 2022 2 :59pm [facility] EN[facility] [address] [place] [address] Wound Center Provider Note Signed Patient: Alex Almonte MR#: [id number] : 1945 Acct:[id number] Age/Sex: 76 / M Copies to: Devon Moreira,DO Sadia Aguilar APRN~ HPI Date of Visit Date of Visit: Date of Service: 03/24/2022 Time of Service: 14:58 Narrative HPI: 12/30/21 Alex is a 76 year old male presenting to [facility] wound care for aninitial visit for eval and treatment of a sacral/coccyx area pressure ulcer. He resides at [facility]. There is an BLOWING ENGINEER present for the visit. Medicalhoney gel [...] his brief that was cleaned by this investigative writer as well as another nursing staff [...] from initial visit here Mode of Arrival/ Portfolio Analyst: Facility vehicle Assistive Device Used Today: Wheelchair and Indra Lives with:: Care/Nursing Facility Appetite Description: Within Normal Limits Who helps w/ dressing change?: Nursing Facility Why Do You Need Help?: Can't Reach Ulcer, Limited mobility and Taxing effort to leave home Smoking Status: Former smoker [facility] Medical History (Updated 03/03/22 @ [...] Ulcer/Injury Staging: Unstageable Bed Appearance: Beefy Red, Thurston and Yellow Percent of Wound Bed Granulated/Red: [...] <Electronically signed by DAVID Aguilar> 03/24/22 [address] [facility] Work Phone: 1(317) 982-701501-17-2023 Progress note Author Sadia Aguilar [facility] March 03, 2022 2:41pm Note Date/Time March 03, 2022 2 :41pm [facility] EN[facility] [address] [place] [address] Wound Center Provider Note Signed Patient: Alex Almonte MR#: [id number] : 1945 Acct:[id number] Age/Sex: 76 / M Copies to: DO Sadia Whyte APRN~ HPI Date of Visit Date of Visit: Date of Service: 03/03/2022 Time of Service: 14:38 Narrative HPI: 12/30/21 Graydon is a 76 year old male presenting to [facility] wound care for aninitial visit for eval and treatment of a sacral/coccyx area pressure ulcer. He resides at [facility]. There is an BLOWING ENGINEER present for the visit. Medicalhoney gel [...] his brief that was cleaned by this investigative writer as well as another nursing staff [...] from initial visit here Mode of Arrival/ Portfolio Analyst: Facility vehicle Assistive Device Used Today: Wheelchair and Indra Lives with:: Care/Nursing Facility Appetite Description: Within Normal Limits Who helps w/ dressing change?: Nursing Facility Why Do You Need Help?: Can't Reach Ulcer, Limited mobility and Taxing effort to leave home Smoking Status: Former smoker [facility] Medical History (Updated 03/03/22 @ [...] Ulcer Pressure Ulcer/Injury Staging: Unstageable Bed Appearance: Thurston and Yellow Percent of Wound Bed Granulated/Red: 90 Percent of Devitalized: 10 Length (cm): 2.2 Width (cm): 1.8 Depth (cm): 1.9 CM Sq: 3.960 Surrounding Tissue Appearance: Thurston, Hyperpigmented and Satellite lesions Surrounding Tissue Temp: [...] <Electronically signed by DAVID Aguilar> 03/03/22 [address] [facility] Work Phone: [phone] 376-109501-13-2023 Miscellaneous Notes* Telephone Encounter - RAUL Davidson - 02/27/2022 10:24 AM EST Patient phones requesting refills as follows: Per pts sister takes 1 mg in AM and 1 mg in PM Requested Prescriptions Pending Prescriptions Disp Refills tacrolimus IR (PROGRAF) 1 mg capsule Sig: Take 2 capsules by mouth DAILY (6 AM). Please review and advise. RAUL Davidson documented in this encounterMercy Health01-12-2023 History of Present illness Narrative* Hina Peterson MD - 02/26/2022 4:25 PM EST Images from the original note were not included. [facility] [place] DEPARTMENT OF VASCULAR SURGERY OUTPATIENT VISIT DATE [...] maxwell and sutures were removed at the [facility] facility. He comes here with a lateral wound eschar. He denies any fevers, chills, or any drainage. He is on anticoagulation. 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 Magic Cup Lamoure with lunch aspirin, enteric coated (ASPIRIN, ENTERIC [...] TIME: 4:26 PM documented in this encounterMercy Health01-05-2023 Miscellaneous Notes* Telephone Encounter - Gwen Beard - 02/19/2022 12:22 PM ESTSummary: rescheduled appt Alex Almonte appointments have been scheduled accordingly. Patient has been notified via telephone and appointment schedule sent via My Chart Gwensuzan Beard February 19, 2022 12:22 PM * Telephone Encounter - Yumiko Denise - 02/18/2022 3:11 PM EST Reason for call: Mr. Almonte would like to request a sooner appointment with Dr. Peterson than 04/13/2022. Contact Name (if not the patient) Alex's nurse Home and cell number(Ask for Alex's nurse) [phone] Diagnosis 4 mo f/u wound check Yumiko Mcclain documented in this encounterMercy Health01-05-2023 Miscellaneous Notes* Telephone Encounter - Augusta Danielson RN - 02/19/2022 11:11 AM EST Alex [...] labs tomorrow. Will assess new level. Augusta Danielson RN documented in this encounterMercy Health01-04-2023 Miscellaneous Notes* Telephone Encounter - Martina [...] Mercedez Tavares MA documented in this encounterMercy Health12-27-2022 Progress note Author Sadia Aguilar [facility] February 10, 2022 3:47pm Note Date/Time February 10, 2022 3:47pm [facility] EN[facility] [address] [place] [address] Wound Center Provider Note Signed Patient: Alex Almonte MR#: [id number] : 1945 Acct:[id number] Age/Sex: 76 / M Copies to: DO Sadia Whyte APRN~ HPI Date of Visit Date of Visit: Date of Service: 02/10/2022 Time of Service: 15:44 Narrative HPI: 12/30/21 Alex is a 76 year old male presenting to [facility] wound care for aninitial visit for eval and treatment of a sacral/coccyx area pressure ulcer. He resides at [facility]. There is an BLOWING ENGINEER present for the visit. Medicalhoney gel [...] his brief that was cleaned by this investigative writer as well as another nursing staff member, few weeks to follow up Subjective Pain Coccyx: Pain Description: Intermittent Pain Intensity: 0 Wound/Ulcer History When did wound start?: 4 weeks ago- from initial visit here Mode of Arrival/ Portfolio Analyst: Facility vehicle Assistive Device Used Today: Wheelchair and Idnra Lives with:: Care/Nursing Facility Appetite Description: Within Normal Limits Who helps w/ dressing change?: Nursing Facility Why Do You Need Help?: Can't Reach Ulcer, Limited mobility and Taxing effort to leave home Smoking Status: Former smoker [facility] Medical History (Updated 01/20/22 @ [...] Ulcer Pressure Ulcer/Injury Staging: Unstageable Bed Appearance: Thurston and Yellow Percent of Wound Bed Granulated/Red: 90 Percent of Devitalized: 10 Length (cm): 2.5 Width (cm): 2.3 Depth (cm): 2.1 CM Sq: 5.750 Surrounding Tissue Appearance: Thurston, Hyperpigmented and Satellite lesions Surrounding Tissue Temp: [...] <Electronically signed by DAVID Aguilar> 02/10/22 [address] [facility] Work Phone: 1(174) 837-401112-22-2022 History of Present illness Narrative* Asia Pike MD - 02/05/2022 8:20 AM EST Images from the original note were not included. [facility] [place] Transplant Follow up Portions of this note [...] date with medications. Patient brought paperwork from [employer] with all medications being received. Patient unsure if they have been drawing labs regularly. Last Tac from 01/19: 12.9 and K 5.9. In need of current labs. Lab orders will be sent with patient and follows as below: Kidney and Pancreas Transplant Standing Lab Orders [address] [facility] [address] [place], [place] [address] February 05, 2022 Alex Almonte 1945 [id number] STANDARD TESTING: Diagnosis Codes: Z94.0 Kidney Transplant [...] AT YOUR LABORATORY FACILITY AND FAX TO [phone]. PLEASE CALL [phone]. Provider: Dr. Pike Current Outpatient Medications Medication [...] by mouth daily with lunch. Magic Cup Lamoure with lunch aspirin, enteric coated (ASPIRIN, ENTERIC [...] appetite All other system reviews negative. Augusta Danielson RN Staff: February 05, 2022 9:34 AM [...] Asia Pike MD documented in this encounterMercy Health12-06-2022 Progress note Author Sadia Aguilar [facility] January 20, 2022 2:21pm Note Date/Time January 20, 2022 2 :21pm [facility] [address] [place] [address] Wound Center Provider Note Signed Patient: Alex Almonte MR#: [id number] : 1945 Acct:[id number] Age/Sex: 76 / M Copies to: DO Sadia Whyte APRN~ HPI Date of Visit Date of Visit: Date of Service: 01/20/2022 Time of Service: 14:17 Narrative HPI: 12/30/21 Alex is a 76 year old male presenting to [facility] wound care for aninitial visit for eval and treatment of a sacral/coccyx area pressure ulcer. He resides at [facility]. There is an BLOWING ENGINEER present for the visit. Medicalhoney gel [...] from initial visit here Mode of Arrival/ Portfolio Analyst: Facility vehicle Assistive Device Used Today: Wheelchair and Indra Lives with:: Care/Nursing Facility Appetite Description: Within Normal Limits Who helps w/ dressing change?: Nursing Facility Why Do You Need Help?: Can't Reach Ulcer, Limited mobility and Taxing effort to leave home Smoking Status: Former smoker [facility] Medical History (Updated 01/20/22 @ [...] mg capsule, immediate-release 2 cap PO BID 12/09/19 [History Confirmed 12/30/21] aspirin 81 mg tablet,delayed [...] Ulcer Pressure Ulcer/Injury Staging: Unstageable Bed Appearance: Thurston and Yellow Percent of Wound Bed Granulated/Red: 40 Percent of Devitalized: 60 Length (cm): 5.2 Width (cm): 3.4 Depth (cm): 1.8 CM Sq: 17.680 Surrounding Tissue Appearance: Thurston and Hyperpigmented Surrounding Tissue Temp: Warm Drainage [...] <Electronically signed by DAVID Aguilar> 01/20/22 [address] [facility] Work Phone: 1(497) 578-304612-06-2022 Miscellaneous Notes* Telephone Encounter - Van Olivarez APRN.CNP - 01/20/2022 1:12 PM EST Labs noted from yesterday. Pt is currently residing at [facility], I spoke with the Nurse, the results has been addressed by Physician caring for pt. He had been placed on Chlor Con and this has been discontinued and hyperkalemia has been treated. Van Olivarez APRN.CNP documented in this encounterMercy Health11-28-2022 Surgical operation note* Brief Op Note - Misbah Landis PA-C - 01/12/2022 10:41 AM EST BRIEF OPERATIVE / PROCEDURE NOTE LOG ID: [id number] SURGERY/PROCEDURE DATE: 01/12/2022 INCISION/PROCEDURE START TIME: 10:32 AM INCISION CLOSE/PROCEDURE END TIME: 10:35 AM SURGEON(S)/PROCEDURALIST(S) AND TYPING CHECKER(S): Misbah Landis PA-C SURGERY/PROCEDURE(S): Removal tunneled vascular access catheter under local anesthesia ANESTHESIA: Procedural Sedation FINDINGS: Catheter removed intact ESTIMATED BLOOD LOSS: 0 ml SPECIMENS: None COMPLICATIONS: None PRE-OP/PRE-PROCEDURE DIAGNOSIS: Foot Ulcer POST-OP/POST-PROCEDURE DIAGNOSIS: Same as Preop SIGNATURE: Misbah Landis PA-C PATIENT NAME: Alex Almonte DATE: January 12, 2022 TIME: 10:42 AM documented in this encounterMercy Health11-22-2022 Nurse Note* Laxmi Archibald RN - 01/06/2022 1:55 PM EST Pre-procedure instructions: Contacted patient's sister, Munira Brothers and nurse at [facility], Jada ([phone]) andconfirmed appt. for Gerhard removal scheduled on 01/12/22, at [facility]. If instructions are not followed your [...] Arrival at 9:30am [facility] and check in for your procedure. [place]/Transportation: How will you be arriving for your procedure? Ambulance service. To be arranged by [facility]. If you develop any of the following symptoms before your procedure, please call [phone]. Chills, joint pain, rash, sore throat, cough, loss of smell, reddened eyes, vomiting, abdominal pains, diarrhea, loss of taste, severe headache, weakness, bruising or bleeding, fever, muscle pain, shortness of breath Recovery expectations: You can expect to be in recovery for 30 minutes following the procedure. Written instructions provided to patient via [employer] If you have any questions please call [phone] documented in this encounterMercy Health11-15-2022 Progress note Author Sadia Aguilar [facility] December 30, 2021 1:49pm Note Date/Time December 30, 2021 1:49pm [facility] [address] [place] [address] Wound Center Provider Note Signed Patient: Alex Almonte MR#: [id number] : 1945 Acct:[id number] Age/Sex: 76 / M Copies to: Devon Moreira,DO Sadia Aguilar APRN~ HPI Date of Visit Date of Visit: Date of Service: 12/30/2021 Time of Service: 13:44 Narrative HPI: 12/30/21 Alex is a 76 year old male presenting to [facility] wound care for aninitial visit for eval and treatment of a sacral/coccyx area pressure ulcer. He resides at [facility]. There is an BLOWING ENGINEER present for the visit. Medicalhoney gel [...] start?: 4 weeks ago Mode of Arrival/ Portfolio Analyst: Facility vehicle Assistive Device Used Today: Wheelchair and Indra Lives with:: Care/Nursing Facility Appetite Description: Within Normal Limits Who helps w/ dressing change?: Nursing Facility Why Do You Need Help?: Can't Reach Ulcer, Limited mobility and Taxing effort to leave home Smoking Status: Former smoker [facility] Medical History (Updated 12/30/21 @ [...] 0.1 CM Sq: 38.500 Surrounding Tissue Appearance: Thurston and Hyperpigmented Surrounding Tissue Temp: Warm Drainage [...] <Electronically signed by DAVID Aguilar> 12/30/21 [address] [facility] Work Phone: 1(867) 762-155011-15-2022 History of Present illness Narrative* Paresh Fonseca [...] a virtual visit done by Luis Angel now through the help of Zoe who is oneof his caregivers at the rehab facility He is currently at [facility] in [facility] Seen on video together with Zoe -history obtained from bedside nursing. he is getting up in a chair, working with PT diet is back to regular hes doing well. much improved since admission to [facility] infection is all better R [...] by mouth daily with lunch. Magic Cup Lamoure with lunch aspirin, enteric coated (ASPIRIN, ENTERIC [...] is a 76 year old male from [facility]. Here today for copat follow-up for vancomycin x4 weeks for MRSA bacteremia He was transferred from [facility] TO [facility] on 11/28/2021 for further surgical management of infected right heel He has a past medical history of kidney transplant in 2001, left AKA from previously infected foot ulcers and multiple foot surgeries. History of PAD CAD status post CABG, diabetes, atrial fibrillatioN He originally presented [facility] for having altered mental status and [...] post right heel I&D at [facility] on 11/24/2021. 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 4. CKD - s/p gerhard placement 5. immunocompromised Status post right open above the ankle [id number] - Enterobacter and MRSA from cultures Gram-positive [...] will need to coordinate with his SNF [phone] --our ID office will need to arrange for IR gerhard removal. Return to ID as needed 10 Minutes spent via virtual visit. SIGNATURE: Paresh Fonseca MD PATIENT NAME: Alex Almonte DATE: December 30, 2021 TIME: 9:52 AM documented in this encounterMercy Health11-01-2022 Miscellaneous Notes* Telephone Encounter - Sulma Pardo - 12/16/2021 3:13 PM EDT Pt human resources operations director is requesting orders for Stomp ampushield to be taken off pressure relief because it is causing sores on the thigh. Thanks, Sulma Pardo Loom Technician documented in this encounterMercy Health10-31-2022 Miscellaneous Notes* Telephone Encounter - Gwen Alfredo Adm Asst I - 12/15/2021 4:11 PM EDT Rupa LYLES from [facility] [phone] called to report IV Vancomycin was started until today. Patient missed 3 days, should patient makeup missed doses? Please advise. Gwen Alfredo Adm Asst I documented in this encounterMercy Health10-21-2022 Instructions* Patient Instructions* Paresh Fonseca MD [...] serious illness Are taking any medications (prescription, qfrv-pvg-ekaegza, vitamins, or herbal products) How will I [...] treatment or prevention of COVID-19 go to https://www.fda.gov/vtjjojrlg-mpzhnqwyjjqd-mty- response/cso-wwzzm-zeahkywxjr-wsc-absdde-rpohscmrz/nupldzytz-ecz-ydutnoruolhms for more information. It is your choice [...] to FDA MedWatch at www.fda.gov/medwatch or call 5-168-SPL-1088 or call [employer] . Additional Information If you have questions, visit the website or call the telephone number provided below. Website Telephone number http://www.[employer]ideology How can I learn more about COVID-19? Ask your healthcare provider. Visit https://www.cdc.gov/COVID19 Contact your local or state public health department. What is an Emergency Use Authorization? The [place] FDA has made EVUSHELD (tixagevimab co-packaged with cilgavimab) available under an emergency access mechanism called an Emergency Use Authorization EUA. The EUA is supported by a Break Up Worker of Health and Human Service (HHS) declaration [...] monohydrate, polysorbate 80, sucrose, water. Distributed by: [employer] [place], [place] Manufactured for: [employer] [place] [employer] 2021. All rightsreserved. documented in this encounterMercy Health10-21-2022 Miscellaneous Notes* Telephone Encounter - Paresh Fonseca MD - 12/05/2021 3:05 PM EDT Evusheld (tixagevimab/cilgavimab) Eligibility and Patient Discussion The patient agrees to receive Evusheld (tixagevimab 300 mg and cilgavimab 300 mg) at [place]. The patient verbalized understanding of repeating a COVID test 72 hours prior to the injections. called up patient in response to her Hash[employer] message today she tested covid negative on a rapid test on Wednesday this week Discussed evushed fact sheet and she agrees to proceed she will retest again today to be scheduled for Friday 12/08 at [facility] Paresh Fonseca MD documented in this encounterMercy Health10-03-2022 Instructions* Patient Instructions* No Reeder DO - 11/17/2021 4:26 PM EDT -- continue coumadin -- will get vascular ultrasound for vein and artery of your right leg -- will have you see my interventional cardiology partner regarding your peripheral artery disease and if your artery disease is impairing your wound healing for the leg ulcer documented in this encounterMercy Health10-03-2022 History of Present illness Narrative* No Reeder DO - 11/17/2021 3:53 PM EDT Images from the original note were not included. [facility] [place] [facility] Department of Cardiovascular Medicine SECTION [...] scan. Leg elevation. No Reeder DO, [facility] Vascular Medicine documented in this encounter[address]16-2022 History of Past illness Narrative* Problem Noted Date Resolved Date Altered tissue perfusion documented as of this encounter (statuses as of 09/30/2021) [address]16-2022 History of Past illness Narrative* Problem Noted Date Resolved Date Altered tissue perfusion documented as of this encounter (statuses as of 10/09/2021) [address]16-2022 History of Past illness Narrative* Problem Noted Date Resolved Date Altered tissue perfusion documented as of this encounter (statuses as of 11/18/2021) [address]16-2022 History of Past illness Narrative* Problem Noted Date Resolved Date Altered tissue perfusion documented as of this encounter (statuses as of 12/01/2021) [address]16-2022 History of Past illness Narrative* Problem Noted Date Resolved Date Altered tissue perfusion documented as of this encounter (statuses as of 12/05/2021) [address]16-2022 History of Past illness Narrative* Problem Noted Date Resolved Date Altered tissue perfusion documented as of this encounter (statuses as of 12/08/2021) [address]16-2022 History of Past illness Narrative* Problem Noted Date Resolved Date Altered tissue perfusion documented as of this encounter (statuses as of 12/08/2021) [address]16-2022 History of Past illness Narrative* Problem Noted Date Resolved Date Altered tissue perfusion 022 documented as of this encounter (statuses as of 12/12/2021) [address]16-2022 History of Past illness Narrative* Problem Noted Date Resolved Date Altered tissue perfusion 022 documented as of this encounter (statuses as of 12/15/2021) [address]16-2022 History of Past illness Narrative* Problem Noted Date Resolved Date Altered tissue perfusion 2 022 documented as of this encounter (statuses as of 12/16/2021) [address]16-2022 History of Past illness Narrative* Problem Noted Date Resolved Date Altered tissue perfusion 2 022 documented as of this encounter (statuses as of 12/31/2021) [address]16-2022 History of Past illness Narrative* Problem Noted Date Resolved Date Altered tissue perfusion 2 022 documented as of this encounter (statuses as of 01/13/2022) [address]16-2022 History of Past illness Narrative* Problem Noted Date Resolved Date Altered tissue perfusion 022 documented as of this encounter (statuses as of 01/20/2022) [address]16-2022 History of Past illness Narrative* Problem Noted Date Resolved Date Altered tissue perfusion 2 022 documented as of this encounter (statuses as of 02/06/2022) [address]16-2022 History of Past illness Narrative* Problem Noted Date Resolved Date Altered tissue perfusion 09/30/2 022 documented as of this encounter (statuses as of 02/20/2022) [address]16-2022 History of Past illness Narrative* Problem Noted Date Resolved Date Altered tissue perfusion 2 022 documented as of this encounter (statuses as of 02/26/2022) [address]16-2022 History of Past illness Narrative* Problem Noted Date Resolved Date Altered tissue perfusion 16/2 022 documented as of this encounter (statuses as of 02/27/2022) [address]16-2022 History of Past illness Narrative* Problem Noted Date Resolved Date Altered tissue perfusion 16/2 022 documented as of this encounter (statuses as of 03/21/2022) [address]16-2022 History of Past illness Narrative* Problem Noted Date Resolved Date Altered tissue perfusion 16/2 022 documented as of this encounter (statuses as of 03/30/2022) [address]16-2022 History of Past illness Narrative* Problem Noted Date Resolved Date Altered tissue perfusion 08/16/2 022 documented as of this encounter (statuses as of 04/06/2022) [facility] History of Past illness Narrative* Problem Noted Date Resolved Date Altered tissue perfusion 022 documented as of this encounter (statuses as of 05/13/2022) [facility] History of Past illness Narrative* Problem Noted Date Diagnosed Date Resolved Date Altered tissue perfusion documented as of this encounter (statuses as of 2022) [facility] History of Past illness Narrative* Problem Noted Date Diagnosed Date Resolved Date Altered tissue perfusion documented as of this encounter (statuses as of 10/29/2022) [facility]2022 Miscellaneous Notes* Telephone Encounter - Katina [...] pharmacy. Katina Duque [facility] Miscellaneous Notes* Telephone Encounter - Van [...] advise. Rosibel Daniel [facility] Miscellaneous Notes* Telephone Encounter - Van Olivarez APRN.CNP - 06/05/2021 4:46 PM EDT Spoke with pt regarding latest results, scr. at baseline. TAC level 8.6 prev two levels in 5 range.He believes latest level would be 12hr trough. No changes for now, if next level >7, can consider if reduction appropriate. He understands. Van Olivarez APRN.CNP [facility] Screening for genitourinary condition Screening for other and unspecified genitourinary condition documented in this encounter [facility]* Diagnosis Acute deep vein thrombosis (DVT) of proximal end of right lower extremity ([facility])- Primary PAD (peripheral artery disease) ([facility]) Peripheral vascular disease, unspecified Nonhealing ulcer of heel ([facility]) Anticoagulation management encounter Encounter for therapeutic drug monitoring documented in this encounter [facility]* Diagnosis Encounter for prophylactic measures, unspecified- Primary documented in this encounter [facility] note* Diagnosis Kidney replaced by transplant- Primary documented in this encounter [facility]* Diagnosis MRSA bacteremia- Primary Bacteremia Diabetic foot ulcer with osteomyelitis ([facility]) Type II or unspecified type diabetes mellitus with other specified manifestations, not stated as uncontrolled ILIANA (acute kidney injury) ([facility]) Acute kidney failure, unspecified documented in this encounter [facility]* Diagnosis Kidney replaced by transplant- Primary 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 documented in this encounter [facility]* Diagnosis Hx of BKA, right (HCC)- Primary PAD (peripheral artery disease) ([facility]) Peripheral vascular disease, unspecified Mixed hyperlipidemia due to type 2 diabetes mellitus ([facility]) Type II or unspecified type diabetes [...] (HCC) Atrial fibrillation documented in this encounter [facility]* Diagnosis Screening for genitourinary condition Screening for other and unspecified genitourinary condition documented in this encounter [facility]* Diagnosis Onset Date Resolution Status At high risk for skin breakdown chronic Diabetes chronic Fecal incontinence chronic Limited mobility chronic Poor appetite chronic Pressure ulcer of sacral region, unstageable chronic Candidiasis resolved [facility] Work Phone: Evaluation noteNo [employer] Other Evaluation note* Diagnosis Kidney replaced by transplant- Primary [facility] Diagnosis 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) [facility] Diagnosis Kidney replaced by transplant documented in this [facility]* Diagnosis 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)- Primary Type 1 diabetes mellitus with hypoglycemia and without coma (CMS/HCC) 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 (CMS/HCC) 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) Type 1 diabetes mellitus with hypoglycemia and without coma (CMS/HCC) 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 (CMS/HCC) 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) Type 1 diabetes mellitus with hypoglycemia and without coma (CMS/HCC) 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 (CMS/HCC) Below-knee amputation of both lower extremities, sequela (CMS/HCC) End-stage renal disease (CMS/HCC) 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) 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) 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 (CMS/HCC) Below-knee amputation of both lower extremities, sequela (CMS/HCC) [facility] Diagnosis 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)- Primary Type 1 diabetes mellitus with hypoglycemia and without coma (CMS/HCC) 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 (CMS/HCC) 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) Type 1 diabetes mellitus with hypoglycemia and without coma (CMS/HCC) 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 (CMS/HCC) 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) Type 1 diabetes mellitus with hypoglycemia and without coma (CMS/HCC) 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 (CMS/HCC) Below-knee amputation of both lower extremities, sequela (CMS/HCC) End-stage renal disease (CMS/HCC) 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) 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) 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 (CMS/HCC) Below-knee amputation of both lower extremities, sequela (CMS/HCC) 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) Type 1 diabetes mellitus with hypoglycemia and without coma (CMS/HCC) 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 (CMS/HCC) [facility] COLONOSCOPY 1995,2001, 2014 Hospitalization History see above [facility] Other Progress note Author Sadia Aguilar [facility] July 20, 2022 1:48pm Note Date/Time July 20, 2022 1:48p m [facility] [address] [place] [address] Wound Center Provider Note Signed Patient: Alex Almonte MR#: [id number] : 1945 Acct:[id number] Age/Sex: 76 / M Copies to: DO Sadia Whyte APRN~ HPI Date of Visit Date of Visit: Date of Service: 07/20/2022 Time of Service: 13:46 Narrative HPI: 12/30/21 Alex is a 76 year old male presenting to [facility] wound care for aninitial visit for eval and treatment of a sacral/coccyx area pressure ulcer. He resides at [facility]. There is an BLOWING ENGINEER present for the visit. Medicalhoney gel [...] his brief that was cleaned by this investigative writer as well as another nursing staff [...] from initial visit here Mode of Arrival/ Portfolio Analyst: Facility vehicle Assistive Device Used Today: Wheelchair and Indra Lives with:: Care/Nursing Facility Appetite Description: Within Normal Limits Who helps w/ dressing change?: Nursing Facility Why Do You Need Help?: Can't Reach Ulcer, Limited mobility and Taxing effort to leave home Smoking Status: Former smoker [facility] Medical History (Updated 03/03/22 @ [...] <Electronically signed by DAVID Aguilar> 07/20/22 [address] [facility] Work Phone: Reason for referral (narrative)* Outpatient Procedure (Routine) - Authorized Specialty Diagnoses / Procedures Referred By Contac t Referred To Contact [facility] [place] Diagnoses PAD (peripheral artery disease) (HCC) Nonhealing ulcer of heel (HCC) Procedures US LEG ARTERIAL PERIPH UNL VAS LAB DUP-SCAN LXTR ART/ARTL BPGS UNI/[place] [address] [place] [id number] [facility] [address] [address] Referral ID Status Reason Start Date Expiration Date Visits Requested Visits Authorized [id number] Authorized Auto-Generat ed Referral 11/17/2021 11/17/2022 1 1 * Outpatient Procedure (Routine) - Authorized Specialty Diagnoses / Procedures Referred By Contac t Referred To Contact [facility] [place] Diagnoses Acute deep vein thrombosis (DVT) of proximal end of right lower extremity (HCC) Procedures US LEG VEIN DVT UNL VAS LAB DUP-SCAN XTR VEINS UNILATERAL/LIMITED STUDY No Reeder DO [address] [address] [facility] [address] [address] Referral ID Status Reason Start Date Expiration Date Visits Requested Visits Authorized [id number] Authorized Auto-Generat ed Referral 11/17/2021 11/17/2022 1 1 * Consult, Test, Treat (Routine) - Authorized Specialty Diagnoses / Procedures Referred By Contkendra t Referred To Contact Cardiology Diagnoses PAD (peripheral artery disease) (HCC) Nonhealing ulcer of heel (HCC) Procedures CONSULT TO CARDIOLOGY OFFICE/OUTPATIENT [facility] MDM 60-74 MINUTES Savanah Marcelo MD [address] [place] [address] Referral ID Status Reason Start Date Expiration Date Visits Requested Visits Authorized [id number] Authorized PCP Requested Referral 11/17/2021 11/17/2022 1 1 [facility] Summary Purpose Family History No Family History Records Found Relationship Condition Age at Onset Recorded Date/T kartik father Aneurysm Unknown father Parkinson's disease Unknown Advance Directives No Advanced Directives Records FoundDocuments on File Type Date Recorded Patient Performance Improvement Director Expl anation Advance Directive(s) Latest Code Status [...] Maker Relationship: M ajority of Adult Siblings (insurance service representative) DNR-CCA 09/26/2021 11:56 AM 10/01/2021 [...] Decision Maker Relationship: Majority of Adult Siblings (insurance service representative) Code Status History Code Status Date Activated Date Inactivated Comments DNR-CCA 09/26/2021 11:56 AM 10/01/2021 2:18 PM Question Answer Comments DNR Order Discussed With: Patient Full Code 09/24/2021 1:35 PM 09/26/2021 11:56 AM Question Answer Comments Full Code Order Discussed With: Patient None 04/26/2004 12:20 PM 04/26/2004 1:20 PM Date Activated Date Inactivated Comments 12/08/2021 1:14 PM 12/12/2021 12:04 AM Question Answer Comments Full Code Order Discussed With: Patient and Surr ogate Decision Maker Surrogate Decision Maker Name: Munira Brothers Surrogate Decision Maker Surrogate Decision Maker Relationship: M ajority of Adult Siblings (insurance service representative) Date Activated Date Inactivated Comments 09/26/2021 11:56 AM 10/01/2021 2:18 PM Question Answer Comments DNR Order Discussed With: Patient Date Activated Date Inactivated Comments 09/24/2021 1:35 PM 09/26/2021 11:56 AM Question Answer Comments Full Code Order Discussed With: Patient Date Activated Date Inactivated Comments 04/26/2004 12:20 PM 04/26/2004 1:20 PM Medications [...] Reason for Visit Chief Complaint Open Wound ([facility]) Reason for Visit At [...] and content) DATE CREATED AUTHOR 02/20/2021 [facility] [employer] [facility] DATE CREATED AUTHOR AUTHOR'S ORGANIZ ATION 07/25/[address] [facility] DATE CREATED AUTHOR AUTHOR'S ORGANIZ ATION 08/16/2022 [facility] DATE CREATED AUTHOR AUTHOR'S ORGANIZ ATION 04/01/2024 [facility] DATE CREATED AUTHOR AUTHOR'S ORGANIZ ATION 04/02/2024 [facility] DATE CREATED AUTHOR AUTHOR'S ORGANIZ ATION 04/13/2024 [facility] Source Comments (unrecognize d section and content) In the event this informatio n is protected by the Federal Confidentiality of Alcohol and Drug Abuse Patient Records regulations: The Federal rules restrict any use of the information to criminally investigate or prosecute any alcohol or drug abuse patient.[facility] the event this information is protected by the Federal Confidentiality of Alcohol and Drug Abuse Patient Records regulations: The Federal rules restrict any use of the information to criminally investigate or prosecute any alcohol or drug abuse patient.[facility] the event this information is protected by the Federal Confidentiality of Alcohol and Drug Abuse Patient Records regulations: The Federal rules restrict any use of the information to criminally investigate or prosecute any alcohol or drug abuse patient.[facility] the event this information is protected by the Federal Confidentiality of Alcohol and Drug Abuse Patient Records regulations: The Federal rules restrict any use of the information to criminally investigate or prosecute any alcohol or drug abuse patient.[facility]In the event this information is protected by the Federal Confidentiality of Alcohol and Drug Abuse Patient Records regulations: The Federal rules restrict any use of the information to criminally investigate or prosecute any alcohol or drug abuse patient.[facility]In the event this information is protected by the Federal Confidentiality of Alcohol and Drug Abuse Patient Records regulations: The Federal rules restrict any use of the information to criminally investigate or prosecute any alcohol or drug abuse patient.[facility] the event this information is protected by the Federal Confidentiality of Alcohol and Drug Abuse Patient Records regulations: The Federal rules restrict any use of the information to criminally investigate or prosecute any alcohol or drug abuse patient.[facility] the event this information is protected by the Federal Confidentiality of Alcohol and Drug Abuse Patient Records regulations: The Federal rules restrict any use of the information to criminally investigate or prosecute any alcohol or drug abuse patient.[facility] the event this information is protected by the Federal Confidentiality of Alcohol and Drug Abuse Patient Records regulations: The Federal rules restrict any use of the information to criminally investigate or prosecute any alcohol or drug abuse patient.[facility] the event this information is protected by the Federal Confidentiality of Alcohol and Drug Abuse Patient Records regulations: The Federal rules restrict any use of the information to criminally investigate or prosecute any alcohol or drug abuse patient.[facility] the event this information is protected by the Federal Confidentiality of Alcohol and Drug Abuse Patient Records regulations: The Federal rules restrict any use of the information to criminally investigate or prosecute any alcohol or drug abuse patient.[facility] the event this information is protected by the Federal Confidentiality of Alcohol and Drug Abuse Patient Records regulations: The Federal rules restrict any use of the information to criminally investigate or prosecute any alcohol or drug abuse patient.[facility] the event this information is protected by the Federal Confidentiality of Alcohol and Drug Abuse Patient Records regulations: The Federal rules restrict any use of the information to criminally investigate or prosecute any alcohol or drug abuse patient.[facility] the event this information is protected by the Federal Confidentiality of Alcohol and Drug Abuse Patient Records regulations: The Federal rules restrict any use of the information to criminally investigate or prosecute any alcohol or drug abuse patient.[facility] the event this information is protected by the Federal Confidentiality of Alcohol and Drug Abuse Patient Records regulations: The Federal rules restrict any use of the information to criminally investigate or prosecute any alcohol or drug abuse patient.[facility] the event this information is protected by the Federal Confidentiality of Alcohol and Drug Abuse Patient Records regulations: The Federal rules restrict any use of the information to criminally investigate or prosecute any alcohol or drug abuse patient.[facility] the event this information is protected by the Federal Confidentiality of Alcohol and Drug Abuse Patient Records regulations: The Federal rules restrict any use of the information to criminally investigate or prosecute any alcohol or drug abuse patient.[facility] the event this information is protected by the Federal Confidentiality of Alcohol and Drug Abuse Patient Records regulations: The Federal rules restrict any use of the information to criminally investigate or prosecute any alcohol or drug abuse patient.[facility]In the event this information is protected by the Federal Confidentiality of Alcohol and Drug Abuse Patient Records regulations: The Federal rules restrict any use of the information to criminally investigate or prosecute any alcohol or drug abuse patient.[facility] the event this information is protected by the Federal Confidentiality of Alcohol and Drug Abuse Patient Records regulations: The Federal rules restrict any use of the information to criminally investigate or prosecute any alcohol or drug abuse patient.[facility]In the event this information is protected by the Federal Confidentiality of Alcohol and Drug Abuse Patient Records regulations: The Federal rules restrict any use of the information to criminally investigate or prosecute any alcohol or drug abuse patient.[facility]In the event this information is protected by the Federal Confidentiality of Alcohol and Drug Abuse Patient Records regulations: The Federal rules restrict any use of the information to criminally investigate or prosecute any alcohol or drug abuse patient.[facility]In the event this information is protected by the Federal Confidentiality of Alcohol and Drug Abuse Patient Records regulations: The Federal rules restrict any use of the information to criminally investigate or prosecute any alcohol or drug abuse patient.[facility] the event this information is protected by the Federal Confidentiality of Alcohol and Drug Abuse Patient Records regulations: The Federal rules restrict any use of the information to criminally investigate or prosecute any alcohol or drug abuse patient.[facility]In the event this information is protected by the Federal Confidentiality of Alcohol and Drug Abuse Patient Records regulations: The Federal rules restrict any use of the information to criminally investigate or prosecute any alcohol or drug abuse patient.[facility]In the event this information is protected by the Federal Confidentiality of Alcohol and Drug Abuse Patient Records regulations: The Federal rules restrict any use of the information to criminally investigate or prosecute any alcohol or drug abuse patient.[facility]In the event this information is protected by the Federal Confidentiality of Alcohol and Drug Abuse Patient Records regulations: The Federal rules restrict any use of the information to criminally investigate or prosecute any alcohol or drug abuse patient.[facility]In the event this information is protected by the Federal Confidentiality of Alcohol and Drug Abuse Patient Records regulations: The Federal rules restrict any use of the information to criminally investigate or prosecute any alcohol or drug abuse patient.[facility]In the event this information is protected by the Federal Confidentiality of Alcohol and Drug Abuse Patient Records regulations: The Federal rules restrict any use of the information to criminally investigate or prosecute any alcohol or drug abuse patient.[facility]In the event this information is protected by the Federal Confidentiality of Alcohol and Drug Abuse Patient Records regulations: The Federal rules restrict any use of the information to criminally investigate or prosecute any alcohol or drug abuse patient.[facility] Reason for Visit (unrecogniz ed section [...] Care Teams (unrecognized sec tion and content) Paraprofessional Aide Teacher Relationship Specialty Start Date End Date Devon Moreira, DO [address] [place] [id number] PCP - General 05/27/00 Paraprofessional Aide Teacher Relationship Specialty Start Date End Date Devon Moreira, DO [address] [place] [address] PCP - General 05/27/00 Paraprofessional Aide Teacher Relationship Specialty Start Date End Date Devon Moreira, DO [address] [place] [address] PCP - General 05/27/00 Paraprofessional Aide Teacher Relationship Specialty Start Date End Date Devon Moreira, DO [address] [place] [address] PCP - General 05/27/00 Paraprofessional Aide Teacher Relationship Specialty Start Date End Date Devon Moreira, DO [address] [place] [address] PCP - General 05/27/00 Paraprofessional Aide Teacher Relationship Specialty Start Date End Date Devon Moreira, DO [address] [place] [address] PCP - General 05/27/00 Paraprofessional Aide Teacher Relationship Specialty Start Date End Date Devon Moreira, DO [address] [place] [address] PCP - General 05/27/00 Paraprofessional Aide Teacher Relationship Specialty Start Date End Date Devon Moreira, DO [address] [place] [address] PCP - General 05/27/00 Paraprofessional Aide Teacher Relationship Specialty Start Date End Date Devon Moreira, DO [address] [place] [address] PCP - General 05/27/00 Paraprofessional Aide Teacher Relationship Specialty Start Date End Date Devon Moreira, DO [address] [place] [address] PCP - General 05/27/00 Paraprofessional Aide Teacher Relationship Specialty Start Date End Date Devon Moreira, DO [address] [place] [address] PCP - General 05/27/00 Paraprofessional Aide Teacher Relationship Specialty Start Date End Date Devon Moreira, DO [address] [place] [address] PCP - General 05/27/00 Paraprofessional Aide Teacher Relationship Specialty Start Date End Date Devon Moreira, DO [address] [facility] [place] [address] PCP - General 05/27/00 Paraprofessional Aide Teacher Relationship Specialty Start Date End Date Devon Moreira, DO [address] [facility] [place] [address] PCP - General 05/27/00 Paraprofessional Aide Teacher Relationship Specialty Start Date End Date Devon Moreira, DO [address] [facility] [place] [address] PCP - General 05/27/00 Paraprofessional Aide Teacher Relationship Specialty Start Date End Date Devon Moreira, DO [address] [facility] [place] [address] PCP - General 05/27/00 Paraprofessional Aide Teacher Relationship Specialty Start Date End Date Devon Moreira, DO [address] [facility] [place] [address] PCP - General 05/27/00 Paraprofessional Aide Teacher Relationship Specialty Start Date End Date Devon Moreira, DO [address] [facility] [place] [address] PCP - General 05/27/00 Paraprofessional Aide Teacher Relationship Specialty Start Date End Date Devon Moreira, DO [address] [facility] [place] [address] PCP - General 05/27/00 Team Status: Active Member Role Status Dates Devon Moreira DO Primary Care Provider Active Team Status: Inactive Member Role Status Dates Devon Moreira DO Primary Care Provider Active Sadia Aguilar APRN Attending Provider Active Paraprofessional Aide Teacher Relationship Specialty Start Date End Date Devon Moreira, [address] [facility] [place] [address] PCP - General 05/27/00 Paraprofessional Aide Teacher Relationship Specialty Start Date End Date Devon Moreira DO [address] [place] [address] PCP - General 05/27/00 Paraprofessional Aide Teacher Relationship Specialty Start Date End Date Ni Cabrera, DO [address] [facility] [address] [place] [address] PCP - ACO Reach 07/09/22 Devon Moreira MD [address] [place] [id number] PCP - General Internal Medicine 07/14/22 Paraprofessional Aide Teacher Relationship Specialty Start Date End Date Devon Moreira DO [address] [place] [address] PCP - General 05/27/00 Paraprofessional Aide Teacher Relationship Specialty Start Date End Date Devon Moreira MD [address] [place] [id number] PCP - General Internal Medicine 07/14/22 Ni Cabrera, DO [address] [facility] [address] [place] [address] PCP - ACO Reach 06/16/23 Paraprofessional Aide Teacher Relationship Specialty Start Date End Date Devon Moreira MD [address] [place] [id number] PCP - General Internal Medicine 07/14/22 Paraprofessional Aide Teacher Relationship Specialty Start Date End Date Dveon Moreira DO [address] [place] [address] PCP - General 05/27/00 PRN Active and Recently Administ ered Medications (unrecognized section and content) Medication Order 01/10/2022 01/11/2022 01/12/2022 lidocaine (PF) 10 mg/mL (1 %) injection (XYLOCAINE) SUBCUTANEOUS, X (OR/PROCEDURE) PRN, Starting on 01/12/22 at 1032, Until Tu01/13/22 at 0303, Intraprocedure 1032 (Given - Provid er: Vnai Hdz APRN.[employer] T[employer]PER HELPER) Goals (unrecognized section and content) Goals may [...] BE BASED ON THE PRIMARY CLINICAL RECORDS. [email or web address] provides no warranty or guarantee of the accuracy or completeness of information in this document.
[2024-04-26 11:12] LABS: Influenza Virus A Antigen Negative; Influenza Virus B Antigen Negative; Internal Control Within Normal Limits
== END 2024-04-26 10:47 | disposition home or self-care (01) ==
LOC: LAB 10:46
PROVIDERS: PCP Internal Medicine; Visit Provider Internal Medicine
DX: R68.89 Other general symptoms and signs (principal)
CPT/HCPCS: 87804

== ENCOUNTER 2024-05-05 12:36 | Outpatient (OUT) | payer MEDICARE, OTHER, SELFPAY ==
--- NOTE | 2024-05-05 13:00 | CA_ITS ---
Patient Name: ALEX ALMONTE MR#: [id number] : 1945 Exam Date: 05/05/2024 Ordering Doctor: MILAGRO QUEEN ECHOCARDIOGRAM REPORT PROCEDURE: CA ECHO DOPPLER COMPLETE INDICATIONS: Atrial fibrillation, open heart surgery (Divinci procedure), pacemaker, hypertension, diabetes COMPARISON: None. DESCRIPTION: COMPLETE ECHOCARDIOGRAM Real-time transthoracic echocardiography with 2D, M-mode, spectral and color flow Doppler performed. QUALITY: Technical quality was good. LEFT VENTRICLE: Normal chamber size. Moderate concentric left ventricular hypertrophy. Systolic function is difficult to assess due to rhythm and poor sound transmission but appears mildly to moderately reduced. LV EF: Mildly to moderately reduced left ventricular ejection fraction, (40%). DIASTOLIC: ATRIAL SEPTUM: LEFT ATRIUM: Severe dilatation. RIGHT ATRIUM: Moderate dilatation. RIGHT VENTRICLE: Normal chamber size. Normal systolic function. Pacer wire present. TRICUSPID VALVE: Normal mobility and thickness. No stenosis with trivial regurgitation. Unable to assess right-sided pressures due to lack of measurable tricuspid regurgitation. MITRAL VALVE: Normal mobility and thickness. No evidence of mitral valve stenosis. Mild mitral annular calcification. Moderate mitral regurgitation. AORTIC VALVE: Normal trileaflet appearance. No visible sclerosis. Normal leaflet mobility. No evidence of aortic valve stenosis. No aortic regurgitation. AORTIC ROOT: Mildly dilated measuring 4.2 cm. PULMONIC VALVE: Normal thickness and mobility. No stenosis. No regurgitation. PERICARDIUM: No evidence of pericardial effusion. IVC: Not well visualized. PLEURA: CONCLUSION: 1. Moderate concentric left ventricular hypertrophy with mildly to moderately reduced systolic function. Estimated LVEF is 40%. 2. Normal right ventricular size and systolic function. 3. Moderate severe biatrial dilatation. 4. Moderate mitral regurgitation. 5. Mildly dilated aortic root measuring 4.2 cm. 6. Unable to assess right-sided pressures due to lack of measurable tricuspid regurgitation. Adult Echocardiography Procedure Report Left Ventricle LVEDD (3.7 - 5.6 cm): 4.51 cm LVESD (2.2 - 4.0 cm): 2.92 cm LVIVS thickness (0.6 - 1.2 cm): 1.45 cm LVPW thickness (0.5 - 1.0 cm): 1.69 cm e': 0.06 m/s E - e': 12.79 LVOT Max Gradient: 0.61 mm[Hg] LVOT Area (cm2): 0.39 m/s Peak Velocity (LVOT): 0.39 m/s Mean Velocity (LVOT): 0.23 m/s LVOT Diameter 2.88 cm Left Atrium LA Volume Index (2D A2C): 60.35 ml/m2 Left Atrium Systolic Dimension: 5.08 cm Mitral Valve MV E to A Ratio: 2.80 Mitral Valve A-Wave Peak Velocity: 0.29 m/s Mitral Valve E-Wave Peak Velocity: 0.82 m/s Right Ventricle Aorta AO Root Diam: 4.24 cm Aortic Valve Tricuspid Valve Peak Velocity (Regurgitant Flow): 2.56 m/s Pulmonic Valve Mean Gradient: 0.52 mm[Hg] Mean Velocity: 0.34 m/s Peak Velocity: 0.48 m/s, 0.47 m/s Peak Gradient: 0.90 mm[Hg], 0.92 mm[Hg] Right Atrium Right Atrium Systolic Pressure: 86.37 ml, 86.37 ml Dictated by: Sudarshan Alvarez M.D. on 05/05/2024 at 18:03 Approved by: Sudarshan Alvarez M.D. on 05/05/2024 at 18:11
== END 2024-05-05 12:37 | disposition home or self-care (01) ==
LOC: CARD 12:36
PROVIDERS: PCP Internal Medicine; Visit Provider Internal Medicine Cardiovascular Disease
DX: R94.31 Abnormal electrocardiogram [ECG] [EKG] (principal); I48.21 Permanent atrial fibrillation
CPT/HCPCS: 93306

== ENCOUNTER 2024-05-16 01:58 | Outpatient (RCR) | payer MEDICARE, OTHER, SELFPAY | END 2024-06-14 13:56 | disposition home or self-care (01) | LOC: MM 01:58 | PROVIDERS: PCP Internal Medicine; Visit Provider Internal Medicine | DX: Z51.81 Encounter for therapeutic drug level monitoring (principal); Z79.01 Long term (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 of anticoagulants ==

== ENCOUNTER 2024-06-15 04:47 | Outpatient (RCR) | payer MEDICARE, OTHER, SELFPAY | END 2024-07-14 14:55 | disposition home or self-care (01) | LOC: MM 04:47 | PROVIDERS: PCP Internal Medicine; Visit Provider Internal Medicine | DX: Z51.81 Encounter for therapeutic drug level monitoring (principal); Z79.01 Long term (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 of anticoagulants ==

== ENCOUNTER 2024-07-16 07:09 | Outpatient (RCR) | payer MEDICARE, OTHER, SELFPAY | END 2024-07-18 10:16 | disposition home or self-care (01) | LOC: MM 07:09 | PROVIDERS: PCP Internal Medicine; Visit Provider Internal Medicine | DX: Z51.81 Encounter for therapeutic drug level monitoring (principal); Z79.01 Long term (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 of anticoagulants; I82.409 Acute embolism and thrombosis of unspecified deep veins of unspecified lower extremity ==